=== PATIENT | female | born 1995 | race Caucasian/White ===

== ENCOUNTER 2023-04-23 08:29 | Emergency (ER) | payer MEDICARE, MEDICAID, SELFPAY ==
[2023-04-23 08:33] VITALS: BP 123/77; PULSE 75; RESP 18; TEMP 36.4; O2SAT 96; BMI 26.9
--- NOTE | 2023-04-23 09:10 | ED.VIS.GI ---
HPI HPI - GI History of Present Illness Chief Complaint: Nausea/Vomiting Informant: patient Abdominal Pain/Flank Pain Onset: Today Context: Sudden Onset Timing: Continuous Quality: Sharp Location: Epigastric Worsened by: - (Coughing) Relieved by: Nothing Nausea/Vomiting/Emesis GI Symptom: Positive for Nausea and Vomiting Quality: Positive for Nonbilious; Negative for Blood streaks, Coffee ground or Hematemesis Episodes: 6 Diarrhea/Melena/Hematochezia GI Symptom: Negative for Diarrhea, Melena or Hematochezia Associated Symptoms Associated Symptoms: Negative for Dysuria, Frequency or Hematuria Narrative Narrative: Patient presents with nausea and vomiting began today. Patient states it came on rather suddenly. Patient states she has had approximately 6 episodes of vomiting today. Patient denies any hematemesis or coffee-ground emesis. Patient states she is having some pain in her chest that radiates into her abdomen. Patient describes it as sharp. Patient states it is constant. Patient states it is worse with coughing and vomiting. Patient states nothing to help with the pain. Patient denies any fevers or chills. Patient denies any diarrhea, melena, or hematochezia. Patient denies any dysuria, frequency, or hematuria. Patient states she has been feeling dizzy and lightheaded but denies any syncopal episodes. Patient states she thinks she is having an attack of her gastroparesis. [facility] Medical History (Updated 04/23/23 @ 12:[address] Greg Philip, ) Anxiety Borderline personality disorder Depression Gastroparesis Marfan syndrome PTSD (post-traumatic stress disorder) Type 1 diabetes Home Medications promethazine 50 mg tablet 50 mg PO Q6H PRN nausea 04/23/23 [History Last Taken Unknown] sulfamethoxazole 800 mg-trimethoprim 160 mg tablet 1 tab PO BID #6 TABLETS 04/23/23 [Rx Last Taken Unknown] Allergy/AdvReac Type Severity Reaction Status Date / Time ondansetron AdvReac I BLACK Verified 04/23/23 08:31 OUT AND LOSE CONTROL OF MY BLADDER Surgical History (Updated 04/23/23 @ 09:[address] Greg Philip, DO) H/O aortic root repair History of loop recorder Hx of appendectomy Hx of eye surgery Social History (Updated 04/23/23 @ 09:[address] Greg Schwiger, DO) Smoking Status: Current every day smoker tobacco type: e-cigarettes substance use type: marijuana ROS ROS ED Constitutional Constitutional ED: Denies chills or fever(s) Eyes Eyes: Denies blurry vision or change in vision ENT ENT ED: Denies rhinorrhea or sore throat Cardiovascular Cardiovascular: Reports chest pain; Denies palpitations Respiratory/Chest Respiratory/Chest: Denies cough or dyspnea Gastrointestinal Gastrointestinal: Reports abdominal pain, nausea and vomiting Genitourinary Genitourinary ED: Denies dysuria or hematuria Musculoskeletal Musculoskeletal: Denies back pain or neck pain Integumentary Denies abscess or rash Neurologic Neurologic: Denies headache(s) or weakness Allergic/Immunologic Allergic/Immunologic ED: Denies mouth swelling or urticaria EXAM Physical Exam Const Vital Signs: 04/23/23 08:33 04/23/23 11:40 Temperature 97.6 F L Temperature Source Temporal Pulse Rate 75 52 L Respiratory Rate 18 Blood Pressure 123/77 H Blood Pressure Mean 92 Pulse Ox 96 Oxygen Delivery Method Room Air Positive well nourished and well developed General Appearance ED: well developed HEENT Reports moist mucous membranes Neck supple and no JVD Resp normal respiratory effort and clear to auscultation bilaterally Cardio regular rate and regular rhythm GI normal to inspection, nondistended, normoactive bowel sounds Palpation: soft and tender epigastric, LUQ and RUQ; Negative for guarding or rebound tenderness present Extremity normal to inspection Extremity Narrative: Pedal pulses are equal bilaterally. General Extremety ED: Negative for edema or tenderness General Extremity: Negative for edema Neuro oriented x3, CN's II-XII intact bilaterally and no sensory deficits noted Sensorium / Orientation: alert Motor Exam: strength 5/5 throughout Psych mental status grossly normal Skin no rashes or lesions noted MDM MDM MDM Narrative Medical decision making narrative: Differential diagnosis includes gastroparesis, bowel obstruction, perforation, aortic dissection, diabetic ketoacidosis, pancreatitis, gastritis, gastroenteritis, peptic ulcer disease, duodenal ulcer, urinary tract infection, , ureteral calculus, and viral illness. CTA of the chest, abdomen, and pelvis will be obtained to assess for aortic dissection and pulmonary embolism. CBC will be obtained to assess for leukocytosis and anemia. Comprehensive metabolic profile will be obtained to assess for hepatic function, renal function, and electrolyte abnormality. Lipase will be obtained to assess for pancreatitis. Urinalysis will be obtained to assess for urinary tract infection and hematuria. EKG will be obtained to assess for cardiac dysrhythmia and cardiac ischemia. High-sensitivity troponin will be obtained to assess for cardiac ischemia. PT with INR and PTT will be obtained to assess for coagulopathy. Serum acetone will be obtained to assess for ketoacidosis. Lab Data Attestation: I reviewed the patient's lab results. Lab results narrative: CBC was reviewed. There is a mild leukocytosis of 13.4. Platelets were slightly low at 149. The remainder is within normal limits. PT with INR and PTT were reviewed and were within normal limits. Comprehensive metabolic profile was reviewed. Potassium was slightly low at 3.3. Glucose was slightly low at 60. The remainder was within normal limits. High-sensitivity troponin was reviewed and was normal at 6. Lipase was reviewed and was normal at 19. Serum hCG was reviewed and was negative. Serum acetone was reviewed and was negative. Urinalysis was reviewed. Leukocyte esterase was 500 with 5-10 white blood cells and 1+ bacteria. Labs: Laboratory Results - last 24 hr 04/23/23 04/23/23 04/23/23 09:57 10:50 11:06 WBC 13.4 H RBC 4.34 Hgb 13.0 Hct 39.8 MCV 91.7 MCH 30.0 MCHC 32.7 RDW Std Deviation 47.8 H RDW Coeff of Joyce 14.1 Plt Count 149 L MPV 12.7 H Immature Gran % (Auto) 0.700 Neut % (Auto) 77.2 H Lymph % (Auto) 14.[address] [place] % (Auto) 6.7 Eos % (Auto) 0.6 Baso % (Auto) 0.3 Absolute Neuts (auto) 10.3 H Absolute Lymphs (auto) 1.93 Nucleated RBC % 0 PT 14.4 INR 1.1 APTT Cancelled 34.5 Sodium 143 Potassium 3.3 L Chloride 114 H Carbon Dioxide 25.0 Anion Gap 4 L BUN 13 Creatinine 0.56 Estim Creat Clear Calc 156.31 Est GFR (MDRD) Af Amer 164 Est GFR (MDRD) Non-Af 135 BUN/Creatinine Ratio 23.1 H Glucose 60 L Calcium 8.6 Total Bilirubin 0.30 AST 13 L ALT 31 Alkaline Phosphatase 66 Troponin I High Sens 6 Total Protein 6.3 L Albumin 3.4 Globulin 2.9 Albumin/Globulin Ratio 1.2 Lipase 19 Serum , Qual NEGATIVE Urine Color Urine Clarity Urine pH Ur Specific [place] Urine Protein Urine Glucose (UA) Urine Ketones Urine Occult Blood Urine Nitrite Urine Bilirubin Urine Urobilinogen Ur Leukocyte Esterase Urine RBC Urine WBC Ur Squamous Epith Cells Urine Bacteria Urine Mucus Acetone Level NEGATIVE POC Glucose 108 H 04/23/23 11:36 WBC RBC Hgb Hct MCV MCH MCHC RDW Std Deviation RDW Coeff of Joyce Plt Count MPV Immature Gran % (Auto) Neut % (Auto) Lymph % (Auto) [place] % (Auto) Eos % (Auto) Baso % (Auto) Absolute Neuts (auto) Absolute Lymphs (auto) Nucleated RBC % PT INR APTT Sodium Potassium Chloride Carbon Dioxide Anion Gap BUN Creatinine Estim Creat Clear Calc Est GFR (MDRD) Af Amer Est GFR (MDRD) Non-Af BUN/Creatinine Ratio Glucose Calcium Total Bilirubin AST ALT Alkaline Phosphatase Troponin I High Sens Total Protein Albumin Globulin Albumin/Globulin Ratio Lipase Serum , Qual Urine Color Yellow Urine Clarity Clear Urine pH 8.0 Ur Specific [place] 1.015 Urine Protein Negative Urine Glucose (UA) 50 H Urine Ketones Negative Urine Occult Blood Negative Urine Nitrite Negative Urine Bilirubin Negative Urine Urobilinogen Normal Ur Leukocyte Esterase 500 H Urine RBC 0 SEEN Urine WBC 5-10 SEEN Ur Squamous Epith Cells 0 SEEN Urine Bacteria 1+ Urine Mucus 0 SEEN Acetone Level POC Glucose Radiography Diagnostic Testing: Clinical Impression(s) from Imaging Studies Chest/Abdomen/Pelvis CTA 04/23/23 09:19 IMPRESSION: No CTA evidence of thoracic or abdominal aortic aneurysm or dissection No acute pulmonary process No suspicious solid organ abnormality No free intraperitoneal fluid, air, or suspicious adenopathy Normal osseous structures Electronically Signed: Yosef Sims MD at 10:57 EDT Reading Location ID and State: [address] [place] [address] , Service support , CTA of the chest, abdomen, and pelvis was obtained. There is no evidence of aortic aneurysm or dissection. There is no acute pulmonary process noted. There is no free air or free fluid. There is no acute abnormality noted. This was interpreted by the radiologist and was also independently reviewed by myself. EKG Initial EKG: Attestation: I personally reviewed and interpreted this EKG as follows: Interpretation: Sinus Rhythm (63) and No Acute Injury Pattern Comments: EKG was obtained. On my independent interpretation, it showed a normal sinus rhythm with a rate of 63. MS interval, QRS interval, and QTc intervals were all normal. [place] was normal. There are no acute ST or T wave changes. Prior EKG tracings: not available for review Prior: No Prior Treatment and Re-Evaluation :: Patient was given IV fluids, Phenergan, and Bentyl. Because of the hypoglycemia, patient was given a half amp of D50. Repeat BG T was 108. Patient was given a dose of oral potassium here. Patient was feeling better on reevaluation. Patient was advised of her findings. Patient was instructed to continue her medications as previously prescribed. Patient was instructed to drink small amounts of fluids more frequently. Urine culture was ordered. Patient was given a prescription for Bactrim to take for urinary tract infection. Patient was instructed to follow-up with her primary care physician in 5 to 7 days. Patient was instructed return if worse in any way. Patient understood and was agreeable with the plan. All questions were answered. Discharge Plan Triage Chief Complaint: Nausea/Vomiting ED Provider: Greg Philip Dx/Rx/DC Orders Clinical Impression: Urinary tract infection, Diabetes, Nausea and vomiting Instructions: ED Cystitis Female Adult, ED Vomiting (Adult) Prescriptions: New sulfamethoxazole-trimethoprim [sulfamethoxazole-trimethoprim] 800-160 mg tablet 1 tab PO BID Qty: 6 0RF No Action promethazine 50 mg tablet 50 mg PO Q6H PRN (Reason: nausea) Primary Care Provider: Care Physician,No Primary Referrals: Care Physician,No Primary [Primary Care Provider] - Doctor,Your [Non-Staff] - 3-5 Days Disposition Disposition: Home, Self Care
--- NOTE | 2023-04-23 09:19 | CT_ITS ---
INDICATION: Chest and back pain, patient has Marfan''s EXAMINATION: CTA CHEST, ABDOMEN AND PELVIS WITH CONTRAST - TECHNIQUE: A CTA of the chest, abdomen, and pelvis is obtained with sagittal and coronal reconstructed MIP views. Three-dimensional surface rendered sequence of the thoracic and abdominal aorta was obtained. A radiation dose optimization technique was used for this scan. mL of Isovue-370. Oral contrast: None. COMPARISON: None. FINDINGS: CT CHEST: THORACIC AORTA: No atheromatous disease, no aneurysmal changes or dissection. ABDOMINAL AORTA: No aneurysm or dissection. No significant atheromatous disease. The iliac arteries are unremarkable. LUNGS: The lungs are well-expanded without acute or chronic changes. No effusions or pneumothorax. MEDIASTINUM: The thyroid gland is normal. No mediastinal or hilar adenopathy. HEART: There is been a previous sternotomy CT ABDOMEN AND PELVIS: LIVER: The liver enhances homogeneously. No masses identified. GALLBLADDER: The CBD is normal. Normal gallbladder. SPLEEN: Normal. PANCREAS: No masses or inflammation. ADRENAL GLANDS: Normal. KIDNEYS AND URETERS: The kidneys both enhance appropriately. There are normal size and shape. No hydronephrosis or nephrolithiasis. No renal masses or cysts. STOMACH: Normal. SMALL BOWEL: No abnormal distention of the small bowel. MESENTERY: No mesenteric inflammation. No ascites. COLON: No significant diverticulosis, masses or inflammation. The colon otherwise is normal. There is a large fatty ileocecal valve. APPENDIX: Evidence of previous appendectomy IVC: Normal. RETROPERITONEUM: No retroperitoneal lymphadenopathy. PELVIC STRUCTURES: Normal bladder. Normal-appearing uterus with physiologic ovarian cysts, no suspicious cystic mass or free fluid in the pelvis. SOFT TISSUES ABDOMEN: The anterior abdominal wall is normal. SOFT TISSUE CHEST: The extrathoracic soft tissues are normal. BONES: No fractures or significant degenerative disease. CT/CTA Chst, Abd, Pel W and/or WO IMPRESSION: No CTA evidence of thoracic or abdominal aortic aneurysm or dissection No acute pulmonary process No suspicious solid organ abnormality No free intraperitoneal fluid, air, or suspicious adenopathy Normal osseous structures Electronically Signed: Yosef Sims MD at 10:57 EDT ,
[2023-04-23] MEDS: 0.9% Normal Saline 1,000 ML 1000 ML IV (09:51)
[2023-04-23] MEDS: Dicyclomine 20 MG/2 ML Vial IM (09:51)
[2023-04-23] MEDS: proMETHazine 25 MG/ML Syringe 6.25 MG IM (09:52)
[2023-04-23 10:09] LABS: Absolute Lymphocyte Count 1.93 X10^3/uL (0.83-4.51); Absolute Neutrophil Count 10.3 X10^3/uL (2.0-7.7); Basophil# 0.04 X10^3/uL; Basophil% 0.3 % (0-1); Eosinophil# 0.08 X10^3/uL; Eosinophils% 0.6 % (0-5); Hematocrit 39.8 % (37-47); Lymphocyte # 1.93 X10^3/ul (0.83-4.51); Lymphocyte % 14.5 % (19-41); Mean Corp Hgb Conc 32.7 g/dL (32-36); Mean Corpuscular Volume 91.7 fL (81-99); Mean Platelet Vol. 12.7 fl (6.2-12.0); Monocyte# 0.89 X10^3/uL; Monocyte% 6.7 % (0-10); NRBC Flagged by Analyzer 0 % (0-5); Neutrophil # 10.31 X10^3/uL (2.7-7.7); Neutrophil % 77.2 % (47-70); Platelet Count 149 K/mm3 (150-450); RBC Distribution Width CV 14.1 % (11.6-14.6); RBC Distribution Width SD 47.8 fl (35.1-43.9); Red Blood Count 4.34 M/mm3 (4.2-5.4); White Blood Count 13.4 K/mm3 (4.4-11.0)
[2023-04-23 10:19] LABS: Internal QC Validated? YES +Cl - CLEAR BKGD; Pregnancy, Serum, hCG Quali. NEGATIVE Negative
[2023-04-23 10:23] LABS: ALB/GLOB Ratio 1.2 RATIO (0.9-2.4); AST(SGOT) 13 U/L (15-37); Alanine Aminotransfer ALT/SGPT 31 U/L (13-56); Albumin, Serum 3.4 g/dL (3.2-5.0); Alkaline Phosphatase 66 U/L (45-117); Anion Gap 4 (5-15); BUN 13 mg/dL (7-18); BUN/Creat Ratio 23.1 RATIO (10-20); Calcium,Total 8.6 mg/dL (8.5-10.1); Chloride 114 mmol/L (98-107); Creatinine, Serum 0.56 mg/dL (0.55-1.02); EST Glomerular Filtration Rate 135 mL/min (>60); Est Glom Filt Rate - Afr Amer 164 mL/min (>60); Estimated Creatinine Clearance 156.31 ml/min; Globulin 2.9 g/dL (2.2-4.2); Glucose 60 mg/dL (74-106); Lipase 19 U/L (13-75); Potassium 3.3 mmol/L (3.5-5.1); Protein, Total 6.3 g/dL (6.4-8.2); Sodium Level 143 mmol/L (136-145); Troponin-I HS 6 pg/mL (3.0-54.0)
[2023-04-23 10:28] LABS: International Normalized Ratio 1.1; Prothrombin Time (Protime)PT. 14.4 SECONDS (11.7-14.9)
[2023-04-23] MEDS: Dextrose 50%-Water 25 GM/50 ML DISP.SYRIN IV (10:37)
[2023-04-23 11:06] LABS: Partial Thromboplast Time 34.5 Seconds (24.1-36.2)
[2023-04-23 11:23] LABS: Bedside Glucose 108 mg/dL (74-106)
[2023-04-23] MEDS: Potassium Chloride Oral Tablet 20 MEQ 40 MEQ PO (11:26)
[2023-04-23 11:40] VITALS: PULSE 52
[2023-04-23 11:41] LABS: Mucous, Urine 0 SEEN /hpf (<or=2+); Red Blood Cells-Urine 0 SEEN /hpf (0-5); Squamous Epithelial Cells - UA 0 SEEN /hpf (5-10)
[2023-04-23 11:43] LABS: Color, Urine Yellow (Yellow); Glucose, Dipstick 50 mg/dl (Normal); Ketone-Dipstick Negative (Negative); Leukocyte Esterase-Dipstick 500 /ul (Negative); Nitrite-Dipstick Negative (Negative); Occult Blood-Urine Negative /ul (Negative); Protein-Dipstick Negative (Negative); Specific Gravity, Urine 1.015 (1.002-1.030); Urine Bilirubin Dipstick Negative (Negative); Urine Clarity Clear (Clear); Urine Urobilinogen Normal (Normal)
[2023-04-23 11:55] LABS: Bacteria 1+ /hpf (None Seen); White Blood Cells 5-10 SEEN /hpf (0-5)
[2023-04-23 13:00] VITALS: RESP 16
== END 2023-04-23 13:09 | disposition home or self-care (01) ==
PROVIDERS: Emergency Provider Emergency Medicine; Visit Provider Emergency Medicine
DX: N39.0 Urinary tract infection, site not specified (principal); E10.9 Type 1 diabetes mellitus without complications; R11.2 Nausea with vomiting, unspecified; F17.290 Nicotine dependence, other tobacco product, uncomplicated; E16.2 Hypoglycemia, unspecified
CPT/HCPCS: 36591; 71275; 74174; 80053; 81001; 82009; 82962; 83690; 84484; 84703; 85025; 85610; 85730; 93005; 96361; 96372; 96374; 99285; J7030; Q9967; A4216

== ENCOUNTER 2023-04-26 20:24 | Emergency (ER) | payer MEDICARE, MEDICAID, SELFPAY ==
[2023-04-26 20:25] VITALS: BP 113/82; PULSE 116; RESP 18; TEMP 37; O2SAT 98; BMI 25.4
--- NOTE | 2023-04-26 20:50 | CT_ITS ---
STUDY: CTA CHEST REASON FOR EXAM: Female, 27 years old. chest pain RADIATION DOSAGE (If Supplied By Facility): CTDIvol = ( 16.05 ) mGy, DLP = ( 450.05 ) mGycm TECHNIQUE: The examination was performed with the intravenous administration of IV 100mL Isovue-370. Post-processing of the angiographic images was performed, with multiplanar reformation and 3D reconstruction. Individualized dose optimization techniques were used for this CT. COMPARISON: 04/23/2023. FINDINGS: Left-sided chest port in place. Normal enhancement of the main pulmonary artery and right and left pulmonary arteries. Normal enhancement of the bilateral peripheral pulmonary arteries. There is no demonstrated pulmonary embolism. Normal thoracic aorta and visualized great vessels. There is no demonstrated aortic dissection. Normal heart and pericardium. Normal mediastinum. Normal hilar regions. Normal visualized trachea and bronchi. The lungs are well expanded. Normal pulmonary parenchyma. Normal pleura. Midline sternotomy wires. Normal osseous structures. Normal visualized upper abdomen. CT/CTA Chest W/WO Contrast IMPRESSION: Normal CTA chest examination, without a demonstrated pulmonary embolism or arterial dissection. No acute cardiopulmonary disease. Electronically Signed: Ruby Trimble MD at 22:52 EDT ,
--- NOTE | 2023-04-26 20:51 | ED.VIS.CHEST ---
HPI History of Present Illness Chief Complaint: Palpitations Detail of Chief Complaint: Chest pain and tachycardia Informant: patient Narrative Narrative: Patient presents to the emergency Avenue complaint of tachycardia that started while in the shower. Patient states [facility]xim[facility] and her heart rate was in the 150s. She subsequently developed a sharp chest pain rating from the left chest towards the center of her chest. Pain is intermittent. Currently she rates her pain a 6 out of 10. She denies recent travel or surgery. Patient states that she has history of Marfan's and has had an aortic root repair in 2014. Patient does have episodes of tachycardia and tells me that every time they put her on medication to control that her blood pressure does not tolerate it and drops. PFSH PFSH Medical History (Updated 04/26/23 @ 23:[address] Loki Soria, ) Anxiety Borderline personality disorder Depression Gastroparesis Marfan syndrome PTSD (post-traumatic stress disorder) Type 1 diabetes Home Medications promethazine 50 mg tablet 50 mg PO Q6H PRN nausea 04/23/23 [History Last Taken Unknown] sulfamethoxazole 800 mg-trimethoprim 160 mg tablet 1 tab PO BID #6 TABLETS 04/23/23 [Rx Last Taken Unknown] Allergy/AdvReac Type Severity Reaction Status Date / Time ondansetron AdvReac I BLACK Verified 04/26/23 20:27 OUT AND LOSE CONTROL OF MY BLADDER Surgical History H/O aortic root repair History of loop recorder Hx of appendectomy Hx of eye surgery Social History (Updated 04/23/23 @ 09:[address] Greg Philip DO) Smoking Status: Current some day smoker tobacco type: e-cigarettes substance use type: marijuana ROS ROS ED Review of Systems ROS Unobtainable: other Constitutional Constitutional ED: Reports lethargy; Denies chills, fever(s), sweats or weight loss Eyes Eyes: Denies blurry vision, change in vision or diplopia ENT ENT ED: Denies rhinorrhea or sore throat Cardiovascular Cardiovascular: Reports chest pain, palpitations and racing heartbeat; Denies orthopnea Respiratory/Chest Respiratory/Chest: Denies cough, dyspnea, dyspnea on exertion, orthopnea or sputum Gastrointestinal Gastrointestinal: Denies abdominal pain, diarrhea, nausea or vomiting Genitourinary Genitourinary ED: Denies dysuria, hematuria or urinary frequency Musculoskeletal Musculoskeletal: Denies arthralgias, back pain, myalgias or neck pain Integumentary Denies abscess, Abrasions or rash Neurologic Neurologic: Denies headache(s) or weakness Psychiatric Psychiatric: Denies anxiety, depression or suicidal thoughts Endocrine Endocrinology: Denies polydipsia, polyphagia or polyuria Hematologic/Lymphatic Hematologic/Lymphatic: Denies easy bleeding, easy bruising or lymphadenopathy Allergic/Immunologic Allergic/Immunologic ED: Denies mouth swelling, tongue swelling or urticaria EXAM Physical Exam Const Vital Signs: 04/26/23 20:25 04/26/23 21:29 04/26/23 21:30 Temperature 98.6 F Temperature Source Temporal Pulse Rate 116 H 78 Respiratory Rate 18 21 H Respiratory Effort Non-Labored Blood Pressure 113/82 H 115/82 H Blood Pressure Mean 92 93 Pulse Ox 98 95 Oxygen Delivery Method Room Air Room Air 04/26/23 22:00 Temperature Temperature Source Pulse Rate 81 Respiratory Rate 22 H Respiratory Effort Blood Pressure Blood Pressure Mean Pulse Ox 97 Oxygen Delivery Method Room Air Positive well nourished and well developed General Appearance ED: well developed and NAD HEENT Reports TM's clear and moist mucous membranes normocephalic and atraumatic; Negative for trauma or tenderness Tympanic Membrane ED: Yes TM's clear Eyes PERRL and EOMs intact bilaterally General Eye ED: Negative for pale conjunctiva or scleral icterus Neck no lymphadenopathy, supple and no JVD General: Negative for tenderness Chest Wall inspection of chest normal and palpation of chest normal Chest: Negative for tenderness Resp normal respiratory effort and clear to auscultation bilaterally Effort and Inspection: Negative for respiratory distress or pain with movement Auscultation: Negative for rhonchi, wheezes or diminished lung sounds Cardio regular rate, regular rhythm, S1 normal heart sound, S2 normal heart sound and no murmurs Peripheral Pulses: pulses 2+ throughout GI normal to inspection, nondistended, normoactive bowel sounds, soft to palpation, non-tender, non-distended and no masses Back/Spine no CVA tenderness and no thoracic nor lumbar tenderness Extremity normal to inspection General Extremety ED: Negative for edema General Extremity: Negative for edema Neuro oriented x3, CN's II-XII intact bilaterally, no sensory deficits noted and gait normal Sensorium / Orientation: awake, alert, oriented to person, oriented to place and oriented to time Motor Exam: strength 5/5 throughout and strength abnormal Psych mental status grossly normal Skin no rashes or lesions noted and no wounds MDM MDM MDM Narrative Medical decision making narrative: Patient presented with tachycardia while in the shower today as well as development of chest pain. She has history of aortic root repair and history of Marfan's. IV line established on arrival. EKG obtained showed a sinus rhythm with a rate of 106 bpm with right atrial enlargement. CBC with differential showed a white count of 13.8 with hemoglobin of 14 and platelet count of 158. Chemistries unremarkable. Troponin was normal at 4. TSH was slightly elevated 3.85. CT of the chest was obtained to rule out dissection which was normal. In reviewing her chart afterwards it was noted that patient was recently in the emergency department with similar complaint and had CT scan of the chest abdomen and pelvis which was unremarkable. Patient continued to complain of nausea and was given Compazine 10 mg IV. I also ordered a milligram of Ativan. Patient has Phenergan at home for her nausea. I will discharge her to home and advised to follow-up with primary care physician within next 3 to 5 days. Also will refer to GI for follow-up. Lab Data Attestation: I reviewed the patient's lab results. Labs: Laboratory Results - last 24 hr 04/26/23 21:20 WBC 13.8 H RBC 4.80 Hgb 14.1 Hct 42.6 MCV 88.8 MCH 29.4 MCHC 33.1 RDW Std Deviation 45.3 H RDW Coeff of Joyce 13.9 Plt Count 158 MPV 11.5 Immature Gran % (Auto) 0.900 Neut % (Auto) 78.6 H Lymph % (Auto) 13.6 L [place] % (Auto) 6.2 Eos % (Auto) 0.4 Baso % (Auto) 0.3 Absolute Neuts (auto) 10.8 H Absolute Lymphs (auto) 1.87 Nucleated RBC % 0 Sodium 135 L Potassium 3.9 Chloride 106 Carbon Dioxide 20.0 L Anion Gap 9 BUN 10 Creatinine 0.96 Estim Creat Clear Calc 91.18 Est GFR (MDRD) Af Amer 89 Est GFR (MDRD) Non-Af 74 BUN/Creatinine Ratio 10.5 Glucose 108 H Calcium 9.2 Troponin I High Sens 4 TSH 3.85 H Radiography Diagnostic Testing: Clinical Impression(s) from Imaging Studies Chest CTA 04/26/23 20:50 IMPRESSION: Normal CTA chest examination, without a demonstrated pulmonary embolism or arterial dissection. No acute cardiopulmonary disease. Electronically Signed: Ruby Trimble MD at 22:52 EDT Reading Location ID and State: [facility] / [place] , Service support , EKG Initial EKG: Attestation: I personally reviewed and interpreted this EKG as follows: Comments: Sinus rhythm with a rate of 106 bpm with right atrial enlargement Discharge Plan Triage Chief Complaint: Palpitations ED Provider: Loki Soria Dx/Rx/DC Orders Clinical Impression: Tachycardia, Chest pain, Vomiting Instructions: ED Chest Pain, Uncertain Cause, ED Palpitations, ED Vomiting (Adult) Prescriptions: No Action promethazine 50 mg tablet 50 mg PO Q6H PRN (Reason: nausea) sulfamethoxazole-trimethoprim [sulfamethoxazole-trimethoprim] 800-160 mg tablet 1 tab PO BID Qty: 6 0RF Primary Care Provider: Care Physician,No Primary Referrals: Friend,Truman, DO [Med Staff - Active Staff] - 3-5 Days Care Physician,No Primary [Primary Care Provider] - Disposition Disposition: Home, Self Care
[2023-04-26] MEDS: 0.9% Normal Saline 1,000 ML 150 ML IV (21:26)
[2023-04-26 21:29] VITALS: BP 115/82; PULSE 78; RESP 21; O2SAT 95
[2023-04-26 21:40] LABS: Absolute Lymphocyte Count 1.87 X10^3/uL (0.83-4.51); Absolute Neutrophil Count 10.8 X10^3/uL (2.0-7.7); Basophil# 0.04 X10^3/uL; Basophil% 0.3 % (0-1); Eosinophil# 0.05 X10^3/uL; Eosinophils% 0.4 % (0-5); Hematocrit 42.6 % (37-47); Hemoglobin 14.1 g/dL (12.0-15.0); Lymphocyte # 1.87 X10^3/ul (0.83-4.51); Lymphocyte % 13.6 % (19-41); Mean Corp Hgb Conc 33.1 g/dL (32-36); Mean Corpuscular Hgb 29.4 pg (27.0-32.0); Mean Corpuscular Volume 88.8 fL (81-99); Mean Platelet Vol. 11.5 fl (6.2-12.0); Monocyte# 0.86 X10^3/uL; Monocyte% 6.2 % (0-10); NRBC Flagged by Analyzer 0 % (0-5); Neutrophil # 10.84 X10^3/uL (2.7-7.7); Neutrophil % 78.6 % (47-70); Platelet Count 158 K/mm3 (150-450); RBC Distribution Width CV 13.9 % (11.6-14.6); RBC Distribution Width SD 45.3 fl (35.1-43.9); White Blood Count 13.8 K/mm3 (4.4-11.0)
[2023-04-26 22:00] VITALS: PULSE 81; RESP 22; O2SAT 97
--- NOTE | 2023-04-26 22:05 | EKG12_ITS ---
Test Reason : Blood Pressure : / mmHG Vent. Rate : 106 BPM Atrial Rate : 106 BPM P-R Int : 122 ms QRS Dur : 078 ms QT Int : 334 ms P-R-T Axes : 064 080 053 degrees QTc Int : 443 ms Sinus tachycardia Right atrial enlargement Borderline ECG Confirmed by KIRILL LOCKE, MARIA ESTHER ([id number]), nut grinder QUENTIN ESPAÑA ([id number]) on 05/15/2023 2:07:14 PM Referred By: Confirmed By:SHAZIA ROY MD
[2023-04-26 22:20] LABS: Anion Gap 9 (5-15); BUN 10 mg/dL (7-18); BUN/Creat Ratio 10.5 RATIO (10-20); Calcium,Total 9.2 mg/dL (8.5-10.1); Chloride 106 mmol/L (98-107); Creatinine, Serum 0.96 mg/dL (0.55-1.02); EST Glomerular Filtration Rate 74 mL/min (>60); Est Glom Filt Rate - Afr Amer 89 mL/min (>60); Estimated Creatinine Clearance 91.18 ml/min; Glucose 108 mg/dL (74-106); Potassium 3.9 mmol/L (3.5-5.1); Sodium Level 135 mmol/L (136-145); Thyroid Stim Hormone (TSH) 3.85 uIU/mL (0.358-3.74); Troponin-I HS 4 pg/mL (3.0-54.0)
[2023-04-26] MEDS: proCHLORPERazine 10 MG/2 ML Vial IV (23:10)
[2023-04-26] MEDS: LORazepam 2 MG/ML Syringe 1 MG IV (23:15)
[2023-04-26 23:47] VITALS: RESP 22
== END 2023-04-26 23:48 | disposition home or self-care (01) ==
PROVIDERS: Emergency Provider Emergency Medicine; Visit Provider Emergency Medicine
DX: R07.9 Chest pain, unspecified (principal); E10.43 Type 1 diabetes mellitus with diabetic autonomic (poly)neuropathy; R11.0 Nausea; F17.290 Nicotine dependence, other tobacco product, uncomplicated; R00.0 Tachycardia, unspecified; Q87.40 Marfan syndrome, unspecified; Z79.899 Other long term (current) drug therapy
CPT/HCPCS: 36591; 71275; 80048; 84443; 84484; 85025; 93005; 96361; 96374; 96375; 99285; J7030; Q9967; A4216

== ENCOUNTER 2023-04-27 09:25 | Observation (INO) | payer MEDICARE, MEDICAID, SELFPAY ==
[2023-04-27] VITALS (8 sets, daily range): BP systolic 93–132; BP diastolic 51–86; PULSE 75–123; RESP 12–30; TEMP 36–37.1; O2SAT 96–100; BMI 28.1; BMI 25.6
[2023-04-27 10:28] LABS: Absolute Lymphocyte Count 0.67 X10^3/uL (0.83-4.51); Absolute Neutrophil Count 19.6 X10^3/uL (2.0-7.7); Basophil# 0.04 X10^3/uL; Basophil% 0.2 % (0-1); Hemoglobin 13.5 g/dL (12.0-15.0); Lymphocyte # 0.67 X10^3/ul (0.83-4.51); Lymphocyte % 3.2 % (19-41); Mean Corp Hgb Conc 32.1 g/dL (32-36); Mean Corpuscular Volume 90.3 fL (81-99); Mean Platelet Vol. 12.5 fl (6.2-12.0); Monocyte# 0.19 X10^3/uL; Monocyte% 0.9 % (0-10); NRBC Flagged by Analyzer 0 % (0-5); Neutrophil # 19.63 X10^3/uL (2.7-7.7); Neutrophil % 93.9 % (47-70); Platelet Count 158 K/mm3 (150-450); RBC Distribution Width CV 14.2 % (11.6-14.6); RBC Distribution Width SD 46.5 fl (35.1-43.9); Red Blood Count 4.65 M/mm3 (4.2-5.4); White Blood Count 20.9 K/mm3 (4.4-11.0)
[2023-04-27] MEDS: proMETHazine 25 MG/ML Syringe 12.5 MG IM (10:28)
[2023-04-27] MEDS: Dicyclomine 20 MG/2 ML Vial IM (10:28)
[2023-04-27] MEDS: 0.9% Normal Saline 1,000 ML 1000 ML IV (10:29)
[2023-04-27] MEDS: 0.9% Normal Saline 1,000 ML 150 ML IV ×2 (10:29→18:21)
[2023-04-27 10:46] LABS: AST(SGOT) 10 U/L (15-37); Alanine Aminotransfer ALT/SGPT 22 U/L (13-56); Alkaline Phosphatase 85 U/L (45-117); Anion Gap 15 (5-15); BUN 15 mg/dL (7-18); BUN/Creat Ratio 13.9 RATIO (10-20); Calcium,Total 9.4 mg/dL (8.5-10.1); Chloride 102 mmol/L (98-107); Creatinine, Serum 1.08 mg/dL (0.55-1.02); EST Glomerular Filtration Rate 64 mL/min (>60); Est Glom Filt Rate - Afr Amer 77 mL/min (>60); Estimated Creatinine Clearance 78.23 ml/min; Globulin 3.5 g/dL (2.2-4.2); Glucose 313 mg/dL (74-106); Lipase 10 U/L (13-75); Potassium 5.1 mmol/L (3.5-5.1); Protein, Total 7.5 g/dL (6.4-8.2); Sodium Level 130 mmol/L (136-145)
--- NOTE | 2023-04-27 11:45 | EX.ED.DYSGE1 ---
HPI History of Present Illness Chief Complaint: Nausea/Vomiting Informant: patient Onset/Context/Timing Onset: Yesterday Narrative Narrative: Patient presents secondary to nausea and vomiting. She is a history of gastroparesis with similar symptoms. Patient was seen in the ER yesterday with elevated heart rate. Work-up was rather unremarkable. She states she was getting nauseated prior to discharge and was given a dose of antiemetics. Patient states in spite of this she continued to have progressive nausea overnight and vomited several times. PFSH PFS Medical History Anxiety Borderline personality disorder Depression Gastroparesis Marfan syndrome PTSD (post-traumatic stress disorder) Type 1 diabetes Home Medications promethazine 50 mg tablet 50 mg PO Q6H PRN nausea 04/23/23 [History Last Taken Unknown] sulfamethoxazole 800 mg-trimethoprim 160 mg tablet 1 tab PO BID #6 TABLETS 04/23/23 [Rx Last Taken Unknown] Allergy/AdvReac Type Severity Reaction Status Date / Time acetaminophen [From Percocet] Allergy Intermediate Rash Verified 04/27/23 12:30 adhesive tape Allergy Intermediate Rash Verified 04/27/23 12:30 cephalexin [From Keflex] Allergy Intermediate Other Verified 04/27/23 12:31 morphine Allergy Intermediate Rash Verified 04/27/23 12:30 oxycodone [From Percocet] Allergy Intermediate Rash Verified 04/27/23 12:30 ondansetron AdvReac I BLACK Verified 04/27/23 09:26 OUT AND LOSE CONTROL OF MY BLADDER Surgical History H/O aortic root repair History of loop recorder Hx of appendectomy Hx of eye surgery Social History Smoking Status: Current some day smoker tobacco type: e-cigarettes substance use type: marijuana ROS ROS ED Constitutional Constitutional ED: Denies chills or fever(s) Eyes Eyes: Denies discharge from eye(s) ENT ENT ED: Denies discharge from eye(s), rhinorrhea or sore throat Cardiovascular Cardiovascular: Denies chest pain Respiratory/Chest Respiratory/Chest: Denies cough or dyspnea Gastrointestinal Gastrointestinal: Reports abdominal pain, nausea and vomiting; Denies diarrhea Genitourinary Genitourinary ED: Denies dysuria Musculoskeletal Musculoskeletal: Denies back pain or extremity pain Integumentary Denies Abrasions or rash Neurologic Neurologic: Denies headache(s) or weakness Psychiatric Psychiatric: Denies anxiety or depression Allergic/Immunologic Allergic/Immunologic ED: Denies lip swelling or urticaria EXAM Physical Exam Const Vital Signs: 04/27/23 09:26 04/27/23 11:22 04/27/23 12:39 Temperature 96.8 F L Temperature Source Temporal Pulse Rate 123 H 84 93 Respiratory Rate 21 H 27 H 18 Blood Pressure 115/86 H 116/61 120/51 L Blood Pressure Mean 95 79 74 Pulse Ox 100 96 Oxygen Delivery Method Room Air Room Air Room Air 04/27/23 13:23 Temperature Temperature Source Pulse Rate 100 Respiratory Rate 30 H Blood Pressure 119/58 L Blood Pressure Mean 78 Pulse Ox 96 Oxygen Delivery Method Room Air Positive well nourished and well developed General Appearance ED: well developed HEENT Reports moist mucous membranes Eyes EOMs intact bilaterally Chest Wall inspection of chest normal and palpation of chest normal Resp normal respiratory effort and clear to auscultation bilaterally Cardio regular rate and regular rhythm GI GI Narrative: Abdomen soft with mild diffuse tenderness palpation. No guarding or rebound. Extremity normal to inspection Neuro oriented x3 and no sensory deficits noted Motor Exam: strength 5/5 throughout Skin no rashes or lesions noted MDM MDM MDM Narrative Medical decision making narrative: Patient has been seen twice in the ER recently. Did review those notes. Patient had CT imaging of her chest, abdomen, and pelvis at these visits. Labwork obtained to evaluate for leukocytosis, anemia, and electrolyte derangement. Patient given IV fluids along with Bentyl and Phenergan which seemed to help control her symptoms previously. History & Record Review Discussion w/independent historian: Patient Additional record(s) reviewed:: Prior ED visit and Prior labs Lab Data Attestation: I reviewed the patient's lab results. Labs: Laboratory Results - last 24 hr 04/27/23 04/27/23 10:20 15:11 WBC 20.9 H RBC 4.65 Hgb 13.5 Hct 42.0 MCV 90.3 MCH 29.0 MCHC 32.1 RDW Std Deviation 46.5 H RDW Coeff of Joyce 14.2 Plt Count 158 MPV 12.5 H Immature Gran % (Auto) 1.800 H Neut % (Auto) 93.9 H Lymph % (Auto) 3.2 L [place] % (Auto) 0.9 Eos % (Auto) 0.0 Baso % (Auto) 0.2 Absolute Neuts (auto) 19.6 H Absolute Lymphs (auto) 0.67 L Nucleated RBC % 0 Sodium 130 L Potassium 5.1 Chloride 102 Carbon Dioxide 13.0 L Anion Gap 15 BUN 15 Creatinine 1.08 H Estim Creat Clear Calc 78.23 Est GFR (MDRD) Af Amer 77 Est GFR (MDRD) Non-Af 64 BUN/Creatinine Ratio 13.9 Glucose 313 H Calcium 9.4 Total Bilirubin 1.00 Direct Bilirubin 0.30 AST 10 L ALT 22 Alkaline Phosphatase 85 Total Protein 7.5 Albumin 4.0 Globulin 3.5 Lipase 10 L POC Glucose 206 H Treatment and Re-Evaluation :: CBC reveals an elevated white count at 20.9. White count was elevated in the 13-14 range on previous visits. She does have 94% neutrophils. Chemistry studies reveal a sodium of 130 with a potassium of 5.1. Bicarb is slightly low at 13. Anion gap is normal at 15. Glucose is 313 and patient is a known diabetic. LFTs are unremarkable and lipase is normal. On repeat evaluation patient states she just had further vomiting. I will give her a dose of Reglan and Benadryl at this time. She continues to complain of only mild diffuse abdominal cramping. Given that she has had recent imaging I do not feel repeat CT is needed at this time. My suspicion is that her her vomiting has contributed to her leukocytosis. After the patient had received Reglan and Benadryl she continued to have significant nausea with vomiting. She requested something to help with acid reflux and was given Protonix. I attempted to give her a GI cocktail but because of vomiting she was unable to tolerate this. She was given an additional dose of Phenergan. At this time patient continues to be quite nauseated and cannot tolerate p.o. This is the patient's third visit to the ER this week. With 3 rounds of antiemetics at this time and her nausea still not well controlled I do feel she will require hospitalization. I will speak with the hospitalist. Discharge Plan Triage Chief Complaint: Nausea/Vomiting ED Provider: Lin Johansen Dx/Rx/DC Orders Clinical Impression: Intractable vomiting Prescriptions: No Action promethazine 50 mg tablet 50 mg PO Q6H PRN (Reason: nausea) sulfamethoxazole-trimethoprim [sulfamethoxazole-trimethoprim] 800-160 mg tablet 1 tab PO BID Qty: 6 0RF Primary Care Provider: Care Physician,No Primary Referrals: Care Physician,No Primary [Primary Care Provider] - Disposition Disposition: Acute Care Hospital [facility]
[2023-04-27] MEDS: DiphenhydrAMINE 50 MG/ML Syringe 25 MG IV (12:27)
[2023-04-27] MEDS: 0.9% Normal Saline 1,000 ML 999 ML IV (12:27)
[2023-04-27] MEDS: Metoclopramide 10 MG/2 ML Vial IV (12:27)
[2023-04-27 15:29] LABS: Bedside Glucose 206 mg/dL (74-106)
[2023-04-27] MEDS: proMETHazine 25 MG/ML Syringe IM (15:33)
--- NOTE | 2023-04-27 15:59 | NURSING ---
MED SURG OBS KOVIKRAMS INTRACTABLE VOMITING
--- NOTE | 2023-04-27 17:12 | PCM.HP.STD ---
HPI - General General Date of Admission: 04/27/23 HPI Narrative THEODORE VILLA, is a 27 F who presents to the hospital with intractable nausea and vomiting. She denies any recent illnesses, no fevers or chills but has had significant issues and feels like this is her gastroparesis. She is a type I diabetic on an insulin pump and states that normally when she is doing well her blood sugar is maximum 180, today 313 she does have a leukocytosis of unknown etiology no urine or chest x-ray was obtained. She denies any shortness of breath or cough however will need to obtain a urine. She has received IV fluids and her creatinine is slightly elevated though not consistent with an YANDY. [facility] Medical History (Updated 04/27/23 @ 17:16 by Estelita Vargas) Anxiety Borderline personality disorder Depression Gastroparesis History of tachycardia Kidney disease Kidney stones Marfan syndrome PTSD (post-traumatic stress disorder) Smoker Substance abuse Type 1 diabetes Home Medications sulfamethoxazole 800 mg-trimethoprim 160 mg tablet 1 tab PO BID #6 TABLETS 04/23/23 [Rx Last Taken 04/26/23] insulin lispro 100 unit/mL subcutaneous solution (Humalog U-100 Insulin) See Rx Instructions .Route .COMPLEX 04/27/23 [History Last Taken 04/27/23] risankizumab-rzaa 150 mg/mL subcutaneous syringe (Skyrizi) 150 mg subcut Q84D 04/27/23 [History Last Taken Unknown] sucralfate 1 gram tablet 1 g PO ACHS PRN STOMACH 04/27/23 [History Last Taken Unknown] Allergy/AdvReac Type Severity Reaction Status Date / Time acetaminophen [From Percocet] Allergy Intermediate Rash Verified 04/27/23 12:30 adhesive tape Allergy Intermediate Rash Verified 04/27/23 12:30 cephalexin [From Keflex] Allergy Intermediate Other Verified 04/27/23 12:31 morphine Allergy Intermediate Rash Verified 04/27/23 12:30 oxycodone [From Percocet] Allergy Intermediate Rash Verified 04/27/23 12:30 ondansetron AdvReac I BLACK Verified 04/27/23 09:26 OUT AND LOSE CONTROL OF MY BLADDER no significant family history Surgical History H/O aortic root repair History of loop recorder Hx of appendectomy Hx of eye surgery Social History Smoking Status: Current some day smoker tobacco type: e-cigarettes substance use type: marijuana ROS Constitutional Constitutional: Denies chills, fatigue, fever(s) or malaise Eyes Eyes: Denies blurry vision ENT HEENT: Denies headache(s) or nasal discharge Cardiovascular Cardiovascular: Denies chest pain, dyspnea on exertion or syncope Respiratory/Chest Respiratory/Chest: Denies cough, shortness of breath at rest or shortness of breath with exertion Gastrointestinal Gastrointestinal: Reports abdominal pain, nausea and vomiting; Denies constipation or diarrhea Genitourinary Genitourinary: Denies dysuria Neurologic Neurologic: Denies focal weakness, numbness or tremor(s) Psychiatric Psychiatric: Denies anxiety or depression Vital Signs Vital Signs Vital Signs: 04/27/23 09:26 04/27/23 11:22 04/27/23 12:39 Temperature 96.8 F L Temperature Source Temporal Pulse Rate 123 H 84 93 Respiratory Rate 21 H 27 H 18 Blood Pressure 115/86 H 116/61 120/51 L Blood Pressure Mean 95 79 74 Pulse Ox 100 96 Oxygen Delivery Method Room Air Room Air Room Air 04/27/23 13:23 04/27/23 16:13 04/27/23 16:45 Temperature 97.8 F Temperature Source Oral Pulse Rate 100 90 Respiratory Rate 30 H 21 H 18 Blood Pressure 119/58 L 128/81 H 118/61 Blood Pressure Mean 78 96 80 Pulse Ox 96 Oxygen Delivery Method Room Air Room Air Room Air Weight Weight: 173 lb 8 oz Body Mass Index (BMI) 25.6 Physical Exam Narrative General: Alert, Oriented x3, Cooperative, No apparent distress HEENT: Atraumatic, PERRLA, EOMI, Normocephalic Oral: Dry mucosa Neck: Supple, No JVD Lungs: Clear to auscultation, Normal air movement, No rhonchi, No wheeze, No rales Cardiovascular: Tachycardic, Regular Rhythm, Normal S1, Normal S2, No murmurs Abdomen: Soft, Non Tender, Non-Distended, No Hepato-splenomegaly Extremities: No edema, Capillary Refill Less than 3 Seconds Skin: No rashes, No breakdown Musculoskeletal: No Tenderness to Palpation of Joints or Extremities Neurological: Cranial nerves II-XII grossly intact, Motor Exam 5/5 strength throughout, Sensory exam intact to light touch and pain Psych/Mental Status: Flat Results Lab / Micro Data 04/27/23 10:20 04/27/23 10:20 Labs: Laboratory Results - last 24 hr 04/27/23 10:20: WBC 20.9 H, RBC 4.65, Hgb 13.5, Hct 42.0, MCV 90.3, MCH 29.0, MCHC 32.1, RDW Std Deviation 46.5 H, RDW Coeff of Joyce 14.2, Plt Count 158, MPV 12.5 H, Immature Gran % (Auto) 1.800 H, Neut % (Auto) 93.9 H, Lymph % (Auto) 3.2 L, [place] % (Auto) 0.9, Eos % (Auto) 0.0, Baso % (Auto) 0.2, Absolute Neuts (auto) 19.6 H, Absolute Lymphs (auto) 0.67 L, Nucleated RBC % 0, Sodium 130 L, Potassium 5.1, Chloride 102, Carbon Dioxide 13.0 L, Anion Gap 15, BUN 15, Creatinine 1.08 H, Estim Creat Clear Calc 78.23, Est GFR (MDRD) Af Amer 77, Est GFR (MDRD) Non-Af 64, BUN/Creatinine Ratio 13.9, Glucose 313 H, Calcium 9.4, Total Bilirubin 1.00, Direct Bilirubin 0.30, AST 10 L, ALT 22, Alkaline Phosphatase 85, Total Protein 7.5, Albumin 4.0, Globulin 3.5, Lipase 10 L 04/27/23 15:11: POC Glucose 206 H Assessment & Plan Assessment/Plan (1) Intractable vomiting: PLAN: Plan 1. Intractable nausea and vomiting in the setting of type 1 diabetes with a history of gastroparesis ? Blood sugars elevated this could be an early DKA therefore we will give a significant amount of fluids as well as aggressively control her blood sugar ? We will add a carb controlled diet ? We will continue with Reglan ? She did have leukocytosis this could be reactive however we will check a UA as she is on Bactrim for possible UTI though we have no records of it in our system ?Of note she has had a decreasing bicarb on lab work from 25 down to 13 she has had a worsening pseudohyponatremia all of which could also be pointing to an early DKA, will monitor closely and adjust as necessary 2. History of Marfan's syndrome has had an aortic root repair DVT: Ambulation 75 minutes was spent on direct patient care, including documentation as well as chart review and collaboration with colleagues Charges/Coding Visit Charges Inpatient E&M: 19334 Init Hosp L3
[2023-04-27 18:45] LABS: Bedside Glucose 178 mg/dL (74-106)
[2023-04-27] MEDS: Insulin Lispro 100 UNIT/ML INSULN.PEN SC (21:44)
[2023-04-27] MEDS: Metoclopramide 10 MG/2 ML Vial 5 MG IV (21:45)
[2023-04-28] MEDS: proCHLORPERazine 10 MG/2 ML Vial 5 MG IV ×5 (00:17→20:15)
[2023-04-28] MEDS: 0.9% Normal Saline 1,000 ML 150 ML IV ×2 (00:25→06:50)
--- NOTE | 2023-04-28 01:58 | PCM.PN.BLA ---
Progress Note With possible gastroparesis and nausea and vomiting persisting with reglan and compazine; and allergic to statin start erthyromycin base.
[2023-04-28 02:27] VITALS: BP 95/55; PULSE 90; RESP 16; TEMP 37.6; O2SAT 97
[2023-04-28 02:34] LABS: Bedside Glucose 166 mg/dL (74-106)
[2023-04-28 02:39] LABS: Anion Gap 11 (5-15); BUN 9 mg/dL (7-18); BUN/Creat Ratio 11.7 RATIO (10-20); Calcium,Total 8.3 mg/dL (8.5-10.1); Chloride 112 mmol/L (98-107); Creatinine, Serum 0.77 mg/dL (0.55-1.02); EST Glomerular Filtration Rate 95 mL/min (>60); Est Glom Filt Rate - Afr Amer 115 mL/min (>60); Estimated Creatinine Clearance 113.68 ml/min; Glucose 128 mg/dL (74-106); Potassium 3.8 mmol/L (3.5-5.1); Sodium Level 140 mmol/L (136-145)
[2023-04-28 03:22] LABS: Mucous, Urine 0 SEEN /hpf (<or=2+); Red Blood Cells-Urine 0 SEEN /hpf (0-5); Squamous Epithelial Cells - UA 0 SEEN /hpf (5-10); White Blood Cells 0 SEEN /hpf (0-5)
[2023-04-28 03:23] LABS: Color, Urine Yellow (Yellow); Glucose, Dipstick 100 mg/dl (Normal); Ketone-Dipstick 150 mg/dl (Negative); Leukocyte Esterase-Dipstick Negative /ul (Negative); Nitrite-Dipstick Negative (Negative); Occult Blood-Urine Negative /ul (Negative); Protein-Dipstick 15 mg/dl (Negative); Urine Bilirubin Dipstick Negative (Negative); Urine Clarity Clear (Clear); Urine Urobilinogen Normal (Normal)
[2023-04-28 03:28] LABS: Bacteria RARE /hpf (None Seen)
[2023-04-28 04:35] LABS: Allen Test Positive; Base Excess -6 mmol/L (-2 to +2); Bicarbonate 18.2 mmol/L (22-26); Blood Gas Specimen Type ART; PO2 107 mmHG (75-100); SITE R Radial; SO2 99 % (95-99); Total Carbon Dioxide 19 mmol/L; pCO2 26.7 mmHg (35-45); pH 7.44 (7.35-7.45)
[2023-04-28 04:42] VITALS: BP 140/73; PULSE 79; RESP 16; TEMP 37.2; O2SAT 99
[2023-04-28 04:54] LABS: Bedside Glucose 114 mg/dL (74-106)
[2023-04-28 07:08] LABS: Absolute Neutrophil Count 20.4 X10^3/uL (2.0-7.7); Basophil# 0.03 X10^3/uL; Basophil% 0.1 % (0-1); Hematocrit 37.3 % (37-47); Hemoglobin 12.5 g/dL (12.0-15.0); Lymphocyte % 6.4 % (19-41); Mean Corp Hgb Conc 33.5 g/dL (32-36); Mean Corpuscular Hgb 29.6 pg (27.0-32.0); Mean Corpuscular Volume 88.4 fL (81-99); Mean Platelet Vol. 11.9 fl (6.2-12.0); Monocyte# 1.11 X10^3/uL; Monocyte% 4.8 % (0-10); NRBC Flagged by Analyzer 0 % (0-5); Neutrophil # 20.43 X10^3/uL (2.7-7.7); Neutrophil % 87.7 % (47-70); POSITIVE DIFFERENTIAL YES; Platelet Count 155 K/mm3 (150-450); RBC Distribution Width CV 14.4 % (11.6-14.6); RBC Distribution Width SD 46.4 fl (35.1-43.9); Red Blood Count 4.22 M/mm3 (4.2-5.4); White Blood Count 23.3 K/mm3 (4.4-11.0)
[2023-04-28 08:16] LABS: Anion Gap 9 (5-15); BUN 7 mg/dL (7-18); BUN/Creat Ratio 9.9 RATIO (10-20); Calcium,Total 8.5 mg/dL (8.5-10.1); Chloride 114 mmol/L (98-107); Creatinine, Serum 0.71 mg/dL (0.55-1.02); EST Glomerular Filtration Rate 104 mL/min (>60); Est Glom Filt Rate - Afr Amer 126 mL/min (>60); Estimated Creatinine Clearance 123.28 ml/min; Glucose 104 mg/dL (74-106); Potassium 3.9 mmol/L (3.5-5.1); Sodium Level 137 mmol/L (136-145)
[2023-04-28 08:32] VITALS: BP 95/52; PULSE 68; RESP 16; TEMP 37.6; O2SAT 96
--- NOTE | 2023-04-28 08:46 | PCM.PN.HOSP ---
Reason for Visit Reason for Visit: Diagnoses Vomiting, unspecified (04/27/23) Subjective Subjective Reports some epigastric burning from her vomiting, has some lower abdominal pain that she reports often goes along with this, trying to slowly advance her diet Objective Data Objective Data Vital Signs: Vital Signs Temp Pulse Resp BP Pulse Ox O2 Del Method 99.7 F H 68 16 95/52 L 96 Room Air 04/28/23 08:32 04/28/23 08:32 04/28/23 08:32 04/28/23 08:32 04/28/23 08:32 04/28/23 08:32 Oxygen Delivery Method Room Air Weight: 78.698 kg Body Mass Index (BMI) 25.6 Intake & Output: Intake and Output for Last 24 Hours 04/26/23 04/27/23 04/28/23 23:59 23:59 23:59 Intake Total 3110 / 3110 1872.5 / 1872.5 Balance 3110 / 3110 1872.5 / 1872.5 Lab / Micro Data 04/28/23 06:53 04/28/23 06:53 Labs: Laboratory Results - last 24 hr 04/27/23 10:20: WBC 20.9 H, RBC 4.65, Hgb 13.5, Hct 42.0, MCV 90.3, MCH 29.0, MCHC 32.1, RDW Std Deviation 46.5 H, RDW Coeff of Joyce 14.2, Plt Count 158, MPV 12.5 H, Immature Gran % (Auto) 1.800 H, Neut % (Auto) 93.9 H, Lymph % (Auto) 3.2 L, [place] % (Auto) 0.9, Eos % (Auto) 0.0, Baso % (Auto) 0.2, Absolute Neuts (auto) 19.6 H, Absolute Lymphs (auto) 0.67 L, Nucleated RBC % 0, Sodium 130 L, Potassium 5.1, Chloride 102, Carbon Dioxide 13.0 L, Anion Gap 15, BUN 15, Creatinine 1.08 H, Estim Creat Clear Calc 78.23, Est GFR (MDRD) Af Amer 77, Est GFR (MDRD) Non-Af 64, BUN/Creatinine Ratio 13.9, Glucose 313 H, Calcium 9.4, Total Bilirubin 1.00, Direct Bilirubin 0.30, AST 10 L, ALT 22, Alkaline Phosphatase 85, Total Protein 7.5, Albumin 4.0, Globulin 3.5, Lipase 10 L 04/27/23 15:11: POC Glucose 206 H 04/27/23 18:27: POC Glucose 178 H 04/27/23 21:43: POC Glucose 166 H 04/28/23 00:00: Urine Color Yellow, Urine Clarity Clear, Urine pH 6.0, Ur Specific [place] 1.010, Urine Protein 15 H, Urine Glucose (UA) 100 H, Urine Ketones 150 A*, Urine Occult Blood Negative, Urine Nitrite Negative, Urine Bilirubin Negative, Urine Urobilinogen Normal, Ur Leukocyte Esterase Negative, Urine RBC 0 SEEN, Urine WBC 0 SEEN, Ur Squamous Epith Cells 0 SEEN, Urine Bacteria RARE, Urine Mucus 0 SEEN 04/28/23 02:10: Sodium 140, Potassium 3.8, Chloride 112 H, Carbon Dioxide 17.0 L, Anion Gap 11, BUN 9, Creatinine 0.77, Estim Creat Clear Calc 113.68, Est GFR (MDRD) Af Amer 115, Est GFR (MDRD) Non-Af 95, BUN/Creatinine Ratio 11.7, Glucose 128 H, Calcium 8.3 L, Acetone Level SMALL H 04/28/23 04:35: POC Glucose 114 H 04/28/23 06:53: WBC 23.3 H, RBC 4.22, Hgb 12.5, Hct 37.3, MCV 88.4, MCH 29.6, MCHC 33.5, RDW Std Deviation 46.4 H, RDW Coeff of Joyce 14.4, Plt Count 155, MPV 11.9, Immature Gran % (Auto) 1.000 H, Neut % (Auto) 87.7 H, Lymph % (Auto) 6.4 L, [place] % (Auto) 4.8, Eos % (Auto) 0.0, Baso % (Auto) 0.1, Absolute Neuts (auto) 20.4 H, Absolute Lymphs (auto) 1.50, Nucleated RBC % 0, Sodium 137, Potassium 3.9, Chloride 114 H, Carbon Dioxide 14.0 L, Anion Gap 9, BUN 7, Creatinine 0.71, Estim Creat Clear Calc 123.28, Est GFR (MDRD) Af Amer 126, Est GFR (MDRD) Non-Af 104, BUN/Creatinine Ratio 9.9 L, Glucose 104, Calcium 8.5 ABG Data ABG results: ABG 04/28/23 04:32 Specimen Type ART Sample Site R Radial pH 7.44 Bicarbonate Actual 18.2 L Total CO2 19 Base Excess -6 L O2 Saturation 99 ABG pCO2 26.7 L ABG pO2 107 H Iban Test Positive Physical Exam Narrative General: Alert, oriented, no apparent distress HEENT: Atraumatic, normocephalic Eyes: Anicteric, normal conjunctiva, extraocular movements grossly intact Neck: Supple Respiratory: Clear to auscultation bilaterally, normal respiratory effort Cardiovascular: Regular rate and rhythm GI: Soft, Erick tender diffusely, no rebound, guarding, rigidity, nondistended Extremities: No edema Musculoskeletal: Moving all extremities Neuro: No overt focal neurological deficits Skin: No rashes appreciated Psych: Cooperative Assessment & Plan Assessment/Plan (1) Intractable vomiting: PLAN: Plan #Intractable nausea and vomiting in the setting of type 1 diabetes with a history of gastroparesis ? Blood sugars elevated this could be an early DKA therefore we will give a significant amount of fluids as well as aggressively control her blood sugar ? We will add a carb controlled diet ? We will continue with Reglan ? She did have leukocytosis this could be reactive however we will check a UA as she is on Bactrim for possible UTI though we have no records of it in our system ?Of note she has had a decreasing bicarb on lab work from 25 down to 13 she has had a worsening pseudohyponatremia all of which could also be pointing to an early DKA, will monitor closely and adjust as necessary -04/28: Continue insulin glargine 10 twice daily with 5 units of Premeal, continue IV Reglan, patient was started on erythromycin overnight as well, patient has been on aggressive fluids, diet as tolerated. Patient did have ketones in urine and acetone was small without any acidosis or anion gap but bicarb is low which is likely multifactorial as chloride is elevated, will switch fluids to LR, continue management otherwise #Leukocytosis -Possibly reactive, UA not suggestive of UTI -Had recent CT of abdomen that was unremarkable -Could have GI source however she reported her symptoms were similar to her gastroparesis symptoms and did not have any significant abdominal pain #History of Marfan's syndrome has had an aortic root repair -04/28: Supportive care, had CTA of the chest 04/26/2023 with no dissection DVT: Ambulation 40 minutes was spent on direct patient care, including documentation as well as chart review and collaboration with colleagues Charges/Coding Visit Charges Inpatient E&M: 64499 Subs Hosp L2
[2023-04-28 08:58] LABS: Bedside Glucose 91 mg/dL (74-106)
[2023-04-28] MEDS: Lactated Ringers 1,000 ML 150 ML IV ×2 (09:24→15:01)
[2023-04-28 12:20] VITALS: BP 134/61; PULSE 57; RESP 18; TEMP 37.6; O2SAT 96
[2023-04-28] MEDS: Dextrose 50%-Water 25 GM/50 ML DISP.SYRIN IV (14:55)
[2023-04-28] MEDS: Metoclopramide 10 MG/2 ML Vial 5 MG IV ×2 (15:01→22:47)
[2023-04-28 15:51] LABS: Bedside Glucose 48 mg/dL (74-106)
--- NOTE | 2023-04-28 16:26 | CASEMGMT ---
Care Mgmt Met with patient to complete GRIFFITH form. GRIFFITH form explained to patient who voiced understanding and signed form. Original form placed in pt?s chart and copy provided to patient. Marlene Valle, Discharge Planning Asst. ?
--- NOTE | 2023-04-28 16:44 | PCM.HOSP.N ---
Hospitalist Note Patient with hypoglycemia, decrease insulin dosing, briefly giving D5 with her fluids. Additionally noted that on 04/23 it was felt patient had UTI and she was placed on Bactrim, has elevated white count, no urine culture at that time, will check urine culture and Pro-Ceferino and given patient's difficulty tolerating anything p.o. we will switch to IV antibiotics. Patient has allergy to Keflex so instead of Rocephin we will give Zosyn
[2023-04-28 16:47] VITALS: BP 126/57; PULSE 60; RESP 16; TEMP 36.8; O2SAT 95
[2023-04-28 16:57] LABS: Bedside Glucose 157 mg/dL (74-106)
[2023-04-28 17:22] LABS: Bacteria 0 SEEN /hpf (None Seen); Mucous, Urine 0 SEEN /hpf (<or=2+); Red Blood Cells-Urine 0 SEEN /hpf (0-5); Squamous Epithelial Cells - UA 0 SEEN /hpf (5-10)
[2023-04-28 17:30] LABS: Anion Gap 8 (5-15); BUN 6 mg/dL (7-18); BUN/Creat Ratio 9.2 RATIO (10-20); Calcium,Total 8.2 mg/dL (8.5-10.1); Chloride 108 mmol/L (98-107); Creatinine, Serum 0.65 mg/dL (0.55-1.02); EST Glomerular Filtration Rate 114 mL/min (>60); Est Glom Filt Rate - Afr Amer 138 mL/min (>60); Estimated Creatinine Clearance 134.66 ml/min; Glucose 175 mg/dL (74-106); Potassium 3.4 mmol/L (3.5-5.1); Sodium Level 139 mmol/L (136-145)
[2023-04-28 17:34] LABS: Color, Urine Straw (Yellow); Glucose, Dipstick 100 mg/dl (Normal); Leukocyte Esterase-Dipstick 25 /ul (Negative); Nitrite-Dipstick Negative (Negative); Occult Blood-Urine Negative /ul (Negative); Protein-Dipstick Negative (Negative); Urine Bilirubin Dipstick Negative (Negative); Urine Clarity Clear (Clear); Urine Urobilinogen Normal (Normal)
[2023-04-28 17:37] LABS: Magnesium 2.1 mg/dL (1.6-2.6)
[2023-04-28 17:38] LABS: Ketone-Dipstick 150 mg/dl (Negative)
[2023-04-28 17:40] LABS: White Blood Cells 0-5 SEEN /hpf (0-5)
[2023-04-28 17:43] LABS: Amphetamine Urine VISTA NEGATIVE (<1000 ng/mL); Barbiturate Urine VISTA NEGATIVE (< 200 ng/mL); Benzodiazepine Urine VISTA NEGATIVE (< 200 ng/mL); Cocaine Urine VISTA NEGATIVE (< 300 ng/mL); Ecstacy Urine VISTA NEGATIVE (< 500 ng/mL); Methadone Urine VISTA NEGATIVE (< 300 ng/mL); PCP Urine VISTA NEGATIVE (< 25 ng/mL); THC Urine VISTA POSITIVE (< 50 ng/mL); Vista UDS pH Range 5
[2023-04-28] MEDS: Dextrose 5%/0.9% NaCl 1,000 ML 50 ML IV (18:23)
[2023-04-28 19:34] LABS: Bedside Glucose 247 mg/dL (74-106)
[2023-04-28] MEDS: Potassium Chloride 10mEq/100mL 10 MEQ/100 ML IV.SOLN. 100 MEQ IV BOLUS ×2 (19:58→20:15)
[2023-04-28 20:33] VITALS: BP 138/65; PULSE 66; RESP 16; TEMP 36.8; O2SAT 98
[2023-04-28 22:07] LABS: Bedside Glucose 76 mg/dL (74-106)
[2023-04-28] MEDS: Capsaicin 0.025% 1 APPLIC Tube TOPICAL (22:53)
[2023-04-29] MEDS: Insulin Lispro 100 UNIT/ML INSULN.PEN SC ×5 (00:18→18:41)
[2023-04-29] MEDS: Insulin Glargine-YFGN 100 UNIT/ML Pen 10 UNIT SC (00:19)
[2023-04-29] MEDS: Insulin Glargine-YFGN 100 UNIT/ML Pen SC ×2 (00:20→10:29)
[2023-04-29 00:21] LABS: Bedside Glucose 319 mg/dL (74-106)
[2023-04-29] MEDS: KCL 40mEq in 0.9% NS 40 MEQ/1,000 ML IV.SOLN 75 MEQ IV (00:33)
[2023-04-29 04:40] VITALS: BP 108/54; PULSE 48; RESP 16; TEMP 37.1; O2SAT 96
[2023-04-29 05:18] VITALS: PULSE 52
[2023-04-29 05:33] LABS: Absolute Lymphocyte Count 2.07 X10^3/uL (0.83-4.51); Absolute Neutrophil Count 11.5 X10^3/uL (2.0-7.7); Basophil# 0.04 X10^3/uL; Basophil% 0.3 % (0-1); Hematocrit 35.2 % (37-47); Hemoglobin 11.5 g/dL (12.0-15.0); Lymphocyte # 2.07 X10^3/ul (0.83-4.51); Lymphocyte % 14.3 % (19-41); Mean Corp Hgb Conc 32.7 g/dL (32-36); Mean Corpuscular Hgb 29.8 pg (27.0-32.0); Mean Corpuscular Volume 91.2 fL (81-99); Mean Platelet Vol. 11.6 fl (6.2-12.0); Monocyte% 4.9 % (0-10); NRBC Flagged by Analyzer 0 % (0-5); Neutrophil # 11.46 X10^3/uL (2.7-7.7); Neutrophil % 79.4 % (47-70); Platelet Count 143 K/mm3 (150-450); RBC Distribution Width CV 14.3 % (11.6-14.6); RBC Distribution Width SD 47.9 fl (35.1-43.9); Red Blood Count 3.86 M/mm3 (4.2-5.4); White Blood Count 14.4 K/mm3 (4.4-11.0)
[2023-04-29] MEDS: proCHLORPERazine 10 MG/2 ML Vial 5 MG IV (05:47)
[2023-04-29 05:58] LABS: Anion Gap 9 (5-15); BUN 9 mg/dL (7-18); BUN/Creat Ratio 11.6 RATIO (10-20); Chloride 108 mmol/L (98-107); Creatinine, Serum 0.78 mg/dL (0.55-1.02); EST Glomerular Filtration Rate 93 mL/min (>60); Est Glom Filt Rate - Afr Amer 113 mL/min (>60); Estimated Creatinine Clearance 112.22 ml/min; Glucose 258 mg/dL (74-106); Potassium 4.5 mmol/L (3.5-5.1); Sodium Level 136 mmol/L (136-145)
[2023-04-29 07:17] LABS: Bedside Glucose 214 mg/dL (74-106)
[2023-04-29 07:17] LABS: Bedside Glucose 250 mg/dL (74-106)
[2023-04-29 09:36] VITALS: BP 115/62; PULSE 58; RESP 18; TEMP 36.7; O2SAT 96
[2023-04-29 11:54] LABS: Bedside Glucose 287 mg/dL (74-106)
[2023-04-29] MEDS: Scopolamine 1mg/72hr Patch 1 PATCH TD (12:05)
[2023-04-29] MEDS: Metoclopramide 10 MG/2 ML Vial 5 MG IV (12:06)
--- NOTE | 2023-04-29 12:46 | PCM.PN.HOSP ---
Reason for Visit Reason for Visit: Diagnoses Vomiting, unspecified (04/27/23) Subjective Subjective Patient still intermittently nauseous and still intermittently tolerating food, finds hot showers very helpful Objective Data Objective Data Vital Signs: Vital Signs Temp Pulse Resp BP Pulse Ox O2 Del Method 98.1 F 58 L 18 115/62 96 Room Air 04/29/23 09:36 04/29/23 09:36 04/29/23 09:36 04/29/23 09:36 04/29/23 09:36 04/29/23 09:36 Oxygen Delivery Method Room Air Weight: 78.698 kg Body Mass Index (BMI) 25.6 Intake & Output: Intake and Output for Last 24 Hours 04/27/23 04/28/23 04/29/23 23:59 23:59 23:59 Intake Total 3110 / 3110 5707.71 / 5707.71 920.12 / 920.12 Balance 3110 / 3110 5707.71 / 5707.71 920.12 / 920.12 Lab / Micro Data 04/29/23 05:24 04/29/23 05:24 Labs: Laboratory Results - last 24 hr 04/28/23 12:40: POC Glucose 76 04/28/23 14:50: POC Glucose 48 L 04/28/23 16:36: POC Glucose 157 H 04/28/23 17:00: Sodium 139, Potassium 3.4 L, Chloride 108 H, Carbon Dioxide 23.0, Anion Gap 8, BUN 6 L, Creatinine 0.65, Estim Creat Clear Calc 134.66, Est GFR (MDRD) Af Amer 138, Est GFR (MDRD) Non-Af 114, BUN/Creatinine Ratio 9.2 L, Glucose 175 H, Calcium 8.2 L, Magnesium 2.1 04/28/23 17:10: Urine Color Straw, Urine Clarity Clear, Urine pH 5.0, Ur Specific [place] 1.010, Urine Protein Negative, Urine Glucose (UA) 100 H, Urine Ketones 150 A*, Urine Occult Blood Negative, Urine Nitrite Negative, Urine Bilirubin Negative, Urine Urobilinogen Normal, Ur Leukocyte Esterase 25 H, Urine RBC 0 SEEN, Urine WBC 0-5 SEEN, Ur Squamous Epith Cells 0 SEEN, Urine Bacteria 0 SEEN, Urine Mucus 0 SEEN 04/28/23 17:15: Urine Opiates Screen NEGATIVE, Urine Methadone Screen NEGATIVE, Ur Barbiturates Screen NEGATIVE, Ur Phencyclidine Scrn NEGATIVE, Ur Amphetamines Screen NEGATIVE, MDMA (Ecstasy) Screen NEGATIVE, U Benzodiazepines Scrn NEGATIVE, Urine Cocaine Screen NEGATIVE, U Cannabinoids Screen POSITIVE H, Ur Drug Screen Comment 04/28/23 19:15: POC Glucose 247 H 04/28/23 21:46: POC Glucose 319 H 04/29/23 04:47: POC Glucose 250 H 04/29/23 05:24: WBC 14.4 H, RBC 3.86 L, Hgb 11.5 L, Hct 35.2 L, MCV 91.2, MCH 29.8, MCHC 32.7, RDW Std Deviation 47.9 H, RDW Coeff of Joyce 14.3, Plt Count 143 L, MPV 11.6, Immature Gran % (Auto) 1.100 H, Neut % (Auto) 79.4 H, Lymph % (Auto) 14.3 L, [place] % (Auto) 4.9, Eos % (Auto) 0.0, Baso % (Auto) 0.3, Absolute Neuts (auto) 11.5 H, Absolute Lymphs (auto) 2.07, Nucleated RBC % 0, Sodium 136, Potassium 4.5, Chloride 108 H, Carbon Dioxide 19.0 L, Anion Gap 9, BUN 9, Creatinine 0.78, Estim Creat Clear Calc 112.22, Est GFR (MDRD) Af Amer 113, Est GFR (MDRD) Non-Af 93, BUN/Creatinine Ratio 11.6, Glucose 258 H, Calcium 8.0 L 04/29/23 06:45: POC Glucose 214 H 04/29/23 11:26: POC Glucose 287 H Micro: Microbiology 04/28/23 17:15 Urine, Clean Catch Urine Culture - Preliminary Culture exhibits no growth. Physical Exam Narrative General: Alert, oriented, no apparent distress HEENT: Atraumatic, normocephalic Eyes: Anicteric, normal conjunctiva, extraocular movements grossly intact Neck: Supple Respiratory: Clear to auscultation bilaterally, normal respiratory effort Cardiovascular: Regular rate and rhythm GI: Soft, slightly tender, no rebound, guarding, rigidity, nondistended Extremities: No edema Musculoskeletal: Moving all extremities Neuro: No overt focal neurological deficits Skin: No rashes appreciated Psych: Superficially cooperative Assessment & Plan Assessment/Plan (1) Intractable vomiting: PLAN: Plan #Intractable nausea and vomiting in the setting of type 1 diabetes with a history of gastroparesis?suspect combination of gastroparesis and cannabis hyperemesis syndrome ? Blood sugars elevated this could be an early DKA therefore we will give a significant amount of fluids as well as aggressively control her blood sugar ? We will add a carb controlled diet ? We will continue with Reglan ? She did have leukocytosis this could be reactive however we will check a UA as she is on Bactrim for possible UTI though we have no records of it in our system ?Of note she has had a decreasing bicarb on lab work from 25 down to 13 she has had a worsening pseudohyponatremia all of which could also be pointing to an early DKA, will monitor closely and adjust as necessary -04/28: Continue insulin glargine 10 twice daily with 5 units of Premeal, continue IV Reglan, patient was started on erythromycin overnight as well, patient has been on aggressive fluids, diet as tolerated. Patient did have ketones in urine and acetone was small without any acidosis or anion gap but bicarb is low which is likely multifactorial as chloride is elevated, will switch fluids to LR, continue management otherwise -04/29: Patient finds hot showers to be very helpful and upon further review does seem she uses marijuana, given relatively benign exam and imaging in the past do suspect that there is a component of cannabis hyperemesis syndrome in addition to her reported history of gastroparesis. It is unclear if she has had gastric emptying study in the past. We will continue azithromycin and Reglan at this time as well as supportive care. Advance diet as tolerated #Leukocytosis -Possibly reactive, UA not suggestive of UTI -Had recent CT of abdomen that was unremarkable -Could have GI source however she reported her symptoms were similar to her gastroparesis symptoms and did not have any significant abdominal pain -04/29: Urine culture no growth however she had already been on antibiotics prior to that, we will plan for course for uncomplicated UTI #History of Marfan's syndrome has had an aortic root repair -04/28: Supportive care, had CTA of the chest 04/26/2023 with no dissection DVT: lovenox subq 40 minutes was spent on direct patient care, including documentation as well as chart review and collaboration with colleagues Charges/Coding Visit Charges Inpatient E&M: 03785 Subs Hosp L2
[2023-04-29] MEDS: Enoxaparin 40 MG/0.4 ML Syringe SC (13:45)
[2023-04-29 14:12] VITALS: BP 132/61; PULSE 62; RESP 18; TEMP 36.8; O2SAT 98
--- NOTE | 2023-04-29 17:44 | DCINST_ITS ---
Discharge Instructions Diet Discharge Diet: Light diet - advance as tolerated Activity Discharge Activity: Return to Normal Activity Follow Up Care Test Results: Test results from this visit will be discussed in further detail at your follow- up appointment, if applicable. Discharge Plan Admission Admit Date/Time: 04/27/23 15:53 Primary Reason for Your Visit: Nausea and vomiting Attending Provider: Ileana Lobo Primary Care Provider: Care Physician,No Primary Consulting Providers: David Smith Instructions Patient Instructions: ED Cyclic Vomiting Syndrome Additional Instructions / Restrictions: DISCHARGE INSTRUCTIONS PLEASE READ *Please take this with you to your next doctors appointment* -You recently finished a prescription for Bactrim, your repeat urine culture was normal and you will not be discharged on any further antibiotics -You will be discharged on 40 mg of Protonix daily to help with any reflux component and scopolamine patches will be sent to your pharmacy -It is strongly advised that you avoid any marijuana as this will worsen your problem over time and can contribute to further episodes even if it temporarily seems to help with nausea -Continue to closely monitor blood glucose, if you have any questions please contact your prescribing physician -Please call your primary care provider's office upon discharge to schedule a hospital follow up within 1 week. -If you do not have a primary care physician of list of local primary care physicians can be provided for you upon discharge. Please ask for this list prior to discharge -For any concerning signs or symptoms please call 911 or proceed to the nearest emergency department Discharge Orders/Prescriptions Prescriptions: New scopolamine base 1 mg over 3 days Patch 3 Day 1 patch transdermal Q3D Qty: 3 0RF pantoprazole [Protonix] 40 mg tablet,delayed release (DR/EC) 40 mg PO DAILY Qty: 30 0RF Continued sulfamethoxazole-trimethoprim 800-160 mg tablet 1 tab PO BID Qty: 6 0RF sucralfate 1 gram tablet 1 g PO ACHS PRN (Reason: STOMACH) Skyrizi 150 mg/mL syringe 150 mg subcut Q84D insulin lispro [Humalog U-100 Insulin] 100 unit/mL solution See Rx Instructions .ROUTE .COMPLEX Patient Comments: use IN THE INSULIN PUMP FOR A TOTAL DAILY DOSE OF 100 UNITS Rx Instructions: 100U VIA PUMP DAILY; Referrals / Follow Up: Care Physician,No Primary [Primary Care Provider] - ( -If you do not have a primary care physician of list of local primary care physicians can be provided for you upon discharge. Please ask for this list prior to discharge) Disposition Disposition (needs filled in before D/C Order can be placed): Home, Self Care
--- NOTE | 2023-04-29 17:53 | NURSING ---
pt called this nurse to bedside, she has eyes wide open, she is smiling and states she is hungry but scared to go home-she was agreeable to try chicken noodle soup and if tolerates, go home-
--- NOTE | 2023-04-29 17:54 | PCM.DC.SUM ---
Providers Date of Admission: 04/27/23 Date of Discharge: 04/29/23 Primary Care Physician: No Primary Care Phys Reason For Visit: INTRACTABLE NAUSEA AND VOMITING Diagnosis Discharge Diagnosis (1) Intractable vomiting: Status: Acute Code(s): R11.10 - Vomiting, unspecified Plan #Intractable nausea and vomiting in the setting of type 1 diabetes with a history of gastroparesis?suspect combination of gastroparesis and cannabis hyperemesis syndrome #Leukocytosis- reactive #History of Marfan's syndrome has had an aortic root repair Medications at Discharge Home Medications sulfamethoxazole 800 mg-trimethoprim 160 mg tablet 1 tab PO BID #6 TABLETS 04/23/23 insulin lispro 100 unit/mL subcutaneous solution (Humalog U-100 Insulin) See Rx Instructions .Route .COMPLEX 04/27/23 risankizumab-rzaa 150 mg/mL subcutaneous syringe (Skyrizi) 150 mg subcut Q84D 04/27/23 sucralfate 1 gram tablet 1 g PO ACHS PRN STOMACH 04/27/23 pantoprazole 40 mg tablet,delayed release (Protonix) 40 mg PO DAILY #30 tabs 04/29/23 scopolamine base 1 mg over 3 days transdermal patch 1 patch transdermal Q3D #3 ea 04/29/23 Hospital Course Summary of Care Provided Minutes Spent on Discharge: 33 Hospital Course: 19-year-old female with history of reported gastroparesis and type 1 diabetes mellitus presented 04/27/2023 with intractable nausea and vomiting for which she has come to the ED twice in the past several days. Additionally had elevated blood sugars and there was concern for early DKA especially given decrease in bicarb. She did have small acetone in her blood and ketones in her urine with low bicarb but never developed an anion gap, she was treated with insulin however given her poor p.o. intake this did drop her glucose and there were multiple adjustments to her medications. Nausea waxed and waned, ultimately patient was given a scopolamine patch which helped significantly and she wished to try to eat and to go home if tolerating diet which was reasonable. Have counseled patient that she should avoid any cannabis use as I strongly suspect this contributed. Given her leukocytosis initially it was unclear if there could be component of infection and she was started on antibiotics and a UA obtained, however patient improved with symptomatic treatment and no localizing signs or symptoms of infection ended up being found and UA negative so patient will not be discharged on further antibiotics. Discharge instructions as follows: -You recently finished a prescription for Bactrim, your repeat urine culture was normal and you will not be discharged on any further antibiotics -You will be discharged on 40 mg of Protonix daily to help with any reflux component and scopolamine patches will be sent to your pharmacy -It is strongly advised that you avoid any marijuana as this will worsen your problem over time and can contribute to further episodes even if it temporarily seems to help with nausea -Continue to closely monitor blood glucose, if you have any questions please contact your prescribing physician -Please call your primary care provider's office upon discharge to schedule a hospital follow up within 1 week. -If you do not have a primary care physician of list of local primary care physicians can be provided for you upon discharge. Please ask for this list prior to discharge -For any concerning signs or symptoms please call 911 or proceed to the nearest emergency department Weight / BMI Weight Weight: 78.698 kg Body Mass Index (BMI) 25.6 ABG / Lab / Microbiology Data 04/29/23 05:24 04/29/23 05:24 Laboratory: Laboratory Results - last 24 hr 04/28/23 12:40: POC Glucose 76 04/28/23 19:15: POC Glucose 247 H 04/28/23 21:46: POC Glucose 319 H 04/29/23 04:47: POC Glucose 250 H 04/29/23 05:24: WBC 14.4 H, RBC 3.86 L, Hgb 11.5 L, Hct 35.2 L, MCV 91.2, MCH 29.8, MCHC 32.7, RDW Std Deviation 47.9 H, RDW Coeff of Joyce 14.3, Plt Count 143 L, MPV 11.6, Immature Gran % (Auto) 1.100 H, Neut % (Auto) 79.4 H, Lymph % (Auto) 14.3 L, [place] % (Auto) 4.9, Eos % (Auto) 0.0, Baso % (Auto) 0.3, Absolute Neuts (auto) 11.5 H, Absolute Lymphs (auto) 2.07, Nucleated RBC % 0, Sodium 136, Potassium 4.5, Chloride 108 H, Carbon Dioxide 19.0 L, Anion Gap 9, BUN 9, Creatinine 0.78, Estim Creat Clear Calc 112.22, Est GFR (MDRD) Af Amer 113, Est GFR (MDRD) Non-Af 93, BUN/Creatinine Ratio 11.6, Glucose 258 H, Calcium 8.0 L 04/29/23 06:45: POC Glucose 214 H 04/29/23 11:26: POC Glucose 287 H Microbiology: Microbiology 04/28/23 17:15 Urine, Clean Catch Urine Culture - Preliminary Culture exhibits no growth. D/C Instructions Discharge Diet: Light diet - advance as tolerated Meaningful Use Info Meaningful Use Diagnoses (Choose all that apply): None applicable Discharge Plan Admission Admit Date/Time: 04/27/23 15:53 Primary Reason for Your Visit: Nausea and vomiting Attending Provider: Ileana Lobo Primary Care Provider: Care Physician,Nya Primary Consulting Providers: David Smith Instructions Patient Instructions: ED Cyclic Vomiting Syndrome Additional Instructions / Restrictions: DISCHARGE INSTRUCTIONS PLEASE READ *Please take this with you to your next doctors appointment* -You recently finished a prescription for Bactrim, your repeat urine culture was normal and you will not be discharged on any further antibiotics -You will be discharged on 40 mg of Protonix daily to help with any reflux component and scopolamine patches will be sent to your pharmacy -It is strongly advised that you avoid any marijuana as this will worsen your problem over time and can contribute to further episodes even if it temporarily seems to help with nausea -Continue to closely monitor blood glucose, if you have any questions please contact your prescribing physician -Please call your primary care provider's office upon discharge to schedule a hospital follow up within 1 week. -If you do not have a primary care physician of list of local primary care physicians can be provided for you upon discharge. Please ask for this list prior to discharge -For any concerning signs or symptoms please call 911 or proceed to the nearest emergency department Discharge Orders/Prescriptions Prescriptions: New scopolamine base 1 mg over 3 days Patch 3 Day 1 patch transdermal Q3D Qty: 3 0RF pantoprazole [Protonix] 40 mg tablet,delayed release (DR/EC) 40 mg PO DAILY Qty: 30 0RF Continued sulfamethoxazole-trimethoprim 800-160 mg tablet 1 tab PO BID Qty: 6 0RF sucralfate 1 gram tablet 1 g PO ACHS PRN (Reason: STOMACH) Skyrizi 150 mg/mL syringe 150 mg subcut Q84D insulin lispro [Humalog U-100 Insulin] 100 unit/mL solution See Rx Instructions .ROUTE .COMPLEX Patient Comments: use IN THE INSULIN PUMP FOR A TOTAL DAILY DOSE OF 100 UNITS Rx Instructions: 100U VIA PUMP DAILY; Referrals / Follow Up: Care Physician,No Primary [Primary Care Provider] - ( -If you do not have a primary care physician of list of local primary care physicians can be provided for you upon discharge. Please ask for this list prior to discharge) Disposition Disposition (needs filled in before D/C Order can be placed): Home, Self Care Charges/Coding Visit Charges Inpatient E&M: 07467 Disch Hosp >30min
[2023-04-29 17:57] LABS: Bedside Glucose 210 mg/dL (74-106)
[2023-04-29] MEDS: 0.9 % NaCl (Sterile) Posiflush 10 mL IV (18:52)
[2023-05-02 16:38] LABS: Procalcitonin 0.08 ng/mL (0.00-0.09)
== END 2023-04-29 19:00 | disposition home or self-care (01) ==
LOC: ED 15:50 → MS3 16:19
PROVIDERS: Hospitalist; Admitting Provider Family Medicine; Emergency Provider Emergency Medicine; Visit Provider Internal Medicine
DX: R11.2 Nausea with vomiting, unspecified (principal); E10.43 Type 1 diabetes mellitus with diabetic autonomic (poly)neuropathy; Z79.4 Long term (current) use of insulin; F17.290 Nicotine dependence, other tobacco product, uncomplicated; Z96.41 Presence of insulin pump (external) (internal); Q87.40 Marfan syndrome, unspecified; Z79.899 Other long term (current) drug therapy; D72.829 Elevated white blood cell count, unspecified
CPT/HCPCS: 36415; 36600; 80048; 80076; 80307; 81001; 82009; 82803; 82962; 83690; 83735; 84145; 85025; 87086; 87088; 96361; 96365; 96366; 96367; 96372; 96375; 96376; 99221; 99285; 99406; J7030; J7120; A4216; G0378

== ENCOUNTER 2023-05-03 04:22 | Emergency (ER) | payer MEDICARE, MEDICAID, SELFPAY ==
--- NOTE | 2023-04-23 09:32 | EKG12_ITS ---
Test Reason : NAUSEA Blood Pressure : / mmHG Vent. Rate : 063 BPM Atrial Rate : 063 BPM P-R Int : 136 ms QRS Dur : 082 ms QT Int : 444 ms P-R-T Axes : 031 062 047 degrees QTc Int : 454 ms Normal sinus rhythm Normal ECG No previous ECGs available Confirmed by KIRILL LOCKE, MARIA ESTHER ([id number]), newspaper editor managing QUENTIN ESPAÑA ([id number]) on 06/01/2023 11:55:27 AM Referred By: Confirmed By:SHAZIA ROY MD
[2023-05-03 04:23] VITALS: BP 121/68; PULSE 89; RESP 16; TEMP 36.5; O2SAT 97; BMI 26.9
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
[2023-05-03] MEDS: DiphenhydrAMINE 50 MG/ML Syringe 25 MG IM (05:48)
[2023-05-03] MEDS: Haloperidol Lactate 5 MG/ML Vial 10 MG IM (05:49)
[2023-05-03 06:03] LABS: Internal QC Validated? YES +Cl - CLEAR BKGD; Pregnancy, Serum, hCG Quali. NEGATIVE Negative
[2023-05-03 06:10] LABS: Anion Gap 13 (5-15); BUN 10 mg/dL (7-18); BUN/Creat Ratio 11.9 RATIO (10-20); Calcium,Total 8.7 mg/dL (8.5-10.1); Chloride 109 mmol/L (98-107); Creatinine, Serum 0.84 mg/dL (0.55-1.02); EST Glomerular Filtration Rate 86 mL/min (>60); Est Glom Filt Rate - Afr Amer 103 mL/min (>60); Glucose 210 mg/dL (74-106); Potassium 3.2 mmol/L (3.5-5.1); Sodium Level 140 mmol/L (136-145)
--- NOTE | 2023-05-03 06:10 | ED.RN ---
pt unable to tolerate accessing her port; port access kit, opened, but port not accessed. attempted iv access; lab work obtained, but no iv access. IM injections ordered.
[2023-05-03 07:28] VITALS: RESP 16
[2023-05-03] MEDS: 0.9% Normal Saline 1,000 ML 999 ML IV (07:55)
[2023-05-03 09:00] VITALS: RESP 16
[2023-05-03 09:50] LABS: Anion Gap 9 (5-15); BUN 8 mg/dL (7-18); BUN/Creat Ratio 12.8 RATIO (10-20); Calcium,Total 7.7 mg/dL (8.5-10.1); Chloride 111 mmol/L (98-107); Creatinine, Serum 0.62 mg/dL (0.55-1.02); EST Glomerular Filtration Rate 120 mL/min (>60); Est Glom Filt Rate - Afr Amer 145 mL/min (>60); Estimated Creatinine Clearance 141.18 ml/min; Glucose 230 mg/dL (74-106); Potassium 3.7 mmol/L (3.5-5.1); Sodium Level 142 mmol/L (136-145)
[2023-05-03 11:35] LABS: Record Kit Lot#, Serum Preg. HCG0000667200
== END 2023-05-03 10:27 | disposition home or self-care (01) ==
PROVIDERS: Emergency Medicine; Emergency Provider Emergency Medicine; Visit Provider Emergency Medicine
DX: R11.10 Vomiting, unspecified (principal); E10.43 Type 1 diabetes mellitus with diabetic autonomic (poly)neuropathy; Z79.4 Long term (current) use of insulin; E86.0 Dehydration; F17.210 Nicotine dependence, cigarettes, uncomplicated; K31.84 Gastroparesis
CPT/HCPCS: 80048; 82009; 84703; 96360; 96361; 96372; 99284; J7030; A4216

== ENCOUNTER 2023-06-25 08:19 | Emergency (ER) | payer MEDICARE, MEDICAID, SELFPAY ==
[2023-06-25 08:21] VITALS: BP 136/45; PULSE 114; RESP 18; TEMP 36.3; O2SAT 96; BMI 25.8
--- NOTE | 2023-06-25 08:36 | EDS_ITS ---
HPI HPI - GI History of Present Illness Chief Complaint: Nausea/Vomiting Informant: patient Abdominal Pain/Flank Pain Onset: Yesterday Context: Sudden Onset Timing: Continuous Quality: Aching Location: Diffuse Worsened by: Nothing Relieved by: Nothing Nausea/Vomiting/Emesis GI Symptom: Positive for Nausea and Vomiting Onset: Yesterday Quality: Positive for Nonbilious; Negative for Blood streaks, Coffee ground or Hematemesis Severity: Severe Diarrhea/Melena/Hematochezia GI Symptom: Positive for Diarrhea; Negative for Melena or Hematochezia Onset: Yesterday Associated Symptoms Associated Symptoms: Negative for Dysuria, Frequency or Hematuria Narrative Narrative: Patient presents with nausea and vomiting that began last night. Patient states she is unable to keep anything down. Patient states she has a history of intractable vomiting and gastroparesis. Patient denies any fevers or chills. Patient denies any hematemesis or coffee-ground emesis. Patient denies any melena or hematochezia. Patient states she did have some diarrhea yesterday. Patient admits to some diffuse abdominal pain. Patient states nothing makes it better and nothing makes it worse. Patient denies any fevers or chills. [facility] Medical History Anxiety Borderline personality disorder Depression Gastroparesis History of tachycardia Intractable vomiting Kidney disease Kidney stones Marfan syndrome PTSD (post-traumatic stress disorder) Smoker Substance abuse Type 1 diabetes Home Medications insulin lispro 100 unit/mL subcutaneous solution (Humalog U-100 Insulin) See Rx Instructions .Route .COMPLEX 04/27/23 [History Last Taken 04/27/23] pantoprazole 40 mg tablet,delayed release (Protonix) 40 mg PO DAILY #30 tabs 04/29/23 [Rx Last Taken Unknown] scopolamine base 1 mg over 3 days transdermal patch 1 patch transdermal Q3D #3 ea 04/29/23 [Rx Last Taken Unknown] Allergy/AdvReac Type Severity Reaction Status Date / Time adhesive tape Allergy Intermediate Rash Verified 06/25/23 08:26 cephalexin [From Keflex] Allergy Intermediate Other Verified 06/25/23 08:26 morphine Allergy Intermediate Rash Verified 06/25/23 08:26 oxycodone [From Percocet] Allergy Intermediate Rash Verified 06/25/23 08:26 ondansetron AdvReac I BLACK Verified 06/25/23 08:26 OUT AND LOSE CONTROL OF MY BLADDER Surgical History H/O aortic root repair History of loop recorder Hx of appendectomy Hx of eye surgery Social History Smoking Status: Current some day smoker tobacco type: cigarettes and e- cigarettes substance use type: marijuana ROS ROS ED Constitutional Constitutional ED: Denies chills or fever(s) Eyes Eyes: Denies blurry vision or change in vision ENT ENT ED: Denies rhinorrhea or sore throat Cardiovascular Cardiovascular: Reports chest pain; Denies palpitations Respiratory/Chest Respiratory/Chest: Reports cough; Denies dyspnea Gastrointestinal Gastrointestinal: Reports abdominal pain, diarrhea, nausea and vomiting Genitourinary Genitourinary ED: Denies dysuria or hematuria Musculoskeletal Musculoskeletal: Denies back pain or neck pain Integumentary Denies abscess or rash Neurologic Neurologic: Denies headache(s) or weakness Allergic/Immunologic Allergic/Immunologic ED: Denies mouth swelling or urticaria EXAM Physical Exam Const Vital Signs: 06/25/23 08:21 Temperature 97.4 F L Temperature Source Temporal Pulse Rate 114 H Respiratory Rate 18 Blood Pressure 136/45 H Blood Pressure Mean 75 Pulse Ox 96 Oxygen Delivery Method Room Air Positive well nourished and well developed General Appearance ED: well developed and NAD HEENT Reports moist mucous membranes Neck supple and no JVD Resp normal respiratory effort and clear to auscultation bilaterally Cardio regular rhythm Rate: tachycardic GI Palpation: soft and tender epigastric, LLQ, RLQ, LUQ, RUQ, periumbilical and suprapubic; Negative for guarding or rebound tenderness present Neuro CN's II-XII intact bilaterally, moves all extremities and no sensory deficits noted Sensorium / Orientation: alert Motor Exam: strength 5/5 throughout Psych mental status grossly normal Mood & Affect: anxious MDM MDM MDM Narrative Medical decision making narrative: Differential diagnosis includes gastroparesis, cannabis hyperemesis syndrome, viral illness, gastritis, pancreatitis, , dehydration, and electrolyte abnormality. CBC will be obtained to assess for leukocytosis and anemia. Comprehensive metabolic profile will be obtained to assess for hepatic function, renal function, and electrolyte abnormality. Serum hCG will be obtained to assess for . History & Record Review Additional record(s) reviewed:: Prior inpatient record, Prior ED visit and Prior labs Lab Data Attestation: I reviewed the patient's lab results. Lab results narrative: CBC was reviewed. There is a mild leukocytosis of 12.1. This was improved from previous result. Comprehensive metabolic profile was reviewed. Glucose was 283. AST was slightly elevated at 39 and ALT was slightly elevated at 70. Bilirubin and alkaline phosphatase were normal. Lipase was reviewed and was normal at 16. Serum hCG was reviewed and was negative. Labs: Laboratory Results - last 24 hr 06/25/23 09:20 WBC 12.1 H RBC 4.56 Hgb 13.5 Hct 40.8 MCV 89.5 MCH 29.6 MCHC 33.1 RDW Std Deviation 42.5 RDW Coeff of Joyce 13.1 Plt Count 180 MPV 12.9 H Immature Gran % (Auto) 0.800 Neut % (Auto) 75.9 H Lymph % (Auto) 17.5 L [place] % (Auto) 5.0 Eos % (Auto) 0.4 Baso % (Auto) 0.4 Absolute Neuts (auto) 9.2 H Absolute Lymphs (auto) 2.12 Nucleated RBC % 0 Sodium 140 Potassium 3.8 Chloride 109 H Carbon Dioxide 22.0 Anion Gap 9 BUN 14 Creatinine 0.81 Estim Creat Clear Calc 104.31 Est GFR (MDRD) Af Amer 108 Est GFR (MDRD) Non-Af 89 BUN/Creatinine Ratio 17.3 Glucose 283 H Calcium 9.1 Total Bilirubin 0.60 AST 39 H ALT 70 H Alkaline Phosphatase 85 Total Protein 6.9 Albumin 3.7 Globulin 3.2 Albumin/Globulin Ratio 1.2 Lipase 16 Serum , Qual NEGATIVE Treatment and Re-Evaluation :: Patient was given IV fluids. Patient was given Benadryl and Thorazine. Patient was given Pepcid. Patient was given a dose of Ativan. Capsaicin was applied to the patient's abdomen. Patient is feeling better on reevaluation. Patient was instructed to continue her antiemetics as needed. Patient was instructed to start with small amounts of liquids more frequently. Patient was instructed to advance her diet to a bland diet as tolerated. Patient was instructed to return if worse in any way. Patient understood and was agreeable with the plan. All questions were answered. Discharge Plan Triage Chief Complaint: Nausea/Vomiting ED Provider: Greg Philip Dx/Rx/DC Orders Clinical Impression: Vomiting, Diabetes mellitus Instructions: ED Vomiting (Adult) Prescriptions: No Action insulin lispro [Humalog U-100 Insulin] 100 unit/mL solution See Rx Instructions .ROUTE .COMPLEX Patient Comments: use IN THE INSULIN PUMP FOR A TOTAL DAILY DOSE OF 100 UNITS Rx Instructions: 100U VIA PUMP DAILY; scopolamine base 1 mg over 3 days Patch 3 Day 1 patch transdermal Q3D Qty: 3 0RF pantoprazole [Protonix] 40 mg tablet,delayed release (DR/EC) 40 mg PO DAILY Qty: 30 0RF Primary Care Provider: Care Physician,No Primary Referrals: Marc Osborne MD [Med Staff - [employer]] - 5-7 Days Care Physician,No Primary [Primary Care Provider] - Disposition Disposition: Home, Self Care
[2023-06-25 09:37] LABS: Absolute Lymphocyte Count 2.12 X10^3/uL (0.83-4.51); Absolute Neutrophil Count 9.2 X10^3/uL (2.0-7.7); Basophil# 0.05 X10^3/uL; Basophil% 0.4 % (0-1); Eosinophil# 0.05 X10^3/uL; Eosinophils% 0.4 % (0-5); Hematocrit 40.8 % (37-47); Hemoglobin 13.5 g/dL (12.0-15.0); Lymphocyte # 2.12 X10^3/ul (0.83-4.51); Lymphocyte % 17.5 % (19-41); Mean Corp Hgb Conc 33.1 g/dL (32-36); Mean Corpuscular Hgb 29.6 pg (27.0-32.0); Mean Corpuscular Volume 89.5 fL (81-99); Mean Platelet Vol. 12.9 fl (6.2-12.0); Monocyte# 0.61 X10^3/uL; NRBC Flagged by Analyzer 0 % (0-5); Neutrophil # 9.21 X10^3/uL (2.7-7.7); Neutrophil % 75.9 % (47-70); Platelet Count 180 K/mm3 (150-450); RBC Distribution Width CV 13.1 % (11.6-14.6); RBC Distribution Width SD 42.5 fl (35.1-43.9); Red Blood Count 4.56 M/mm3 (4.2-5.4); White Blood Count 12.1 K/mm3 (4.4-11.0)
[2023-06-25] MEDS: LORazepam 2 MG/ML Syringe 0.5 MG IV (09:39)
[2023-06-25 09:40] LABS: Internal QC Validated? YES +Cl - CLEAR BKGD; Pregnancy, Serum, hCG Quali. NEGATIVE Negative
[2023-06-25] MEDS: Famotidine 200 MG/20 ML MDV 20 MG in 0.9% Normal Saline (Pres. free 8 ML 300 MG IV (09:41)
[2023-06-25] MEDS: 0.9% Normal Saline (1000mL) 1,000 ML 1000 ML IV (09:44)
[2023-06-25 09:46] LABS: ALB/GLOB Ratio 1.2 RATIO (0.9-2.4); AST(SGOT) 39 U/L (15-37); Alanine Aminotransfer ALT/SGPT 70 U/L (13-56); Albumin, Serum 3.7 g/dL (3.2-5.0); Alkaline Phosphatase 85 U/L (45-117); Anion Gap 9 (5-15); BUN 14 mg/dL (7-18); BUN/Creat Ratio 17.3 RATIO (10-20); Calcium,Total 9.1 mg/dL (8.5-10.1); Chloride 109 mmol/L (98-107); Creatinine, Serum 0.81 mg/dL (0.55-1.02); EST Glomerular Filtration Rate 89 mL/min (>60); Est Glom Filt Rate - Afr Amer 108 mL/min (>60); Estimated Creatinine Clearance 104.31 ml/min; Globulin 3.2 g/dL (2.2-4.2); Glucose 283 mg/dL (74-106); Lipase 16 U/L (13-75); Potassium 3.8 mmol/L (3.5-5.1); Protein, Total 6.9 g/dL (6.4-8.2); Sodium Level 140 mmol/L (136-145)
[2023-06-25] MEDS: Capsaicin 0.025% 1 APPLIC Tube TOPICAL (10:32)
[2023-06-25] MEDS: DiphenhydrAMINE 25 MG, ChlorproMAZINE IM 25 MG in 0.9% Normal Saline (100mL Bag) 100 ML 203 MG IV (10:33)
[2023-06-25] MEDS: 0.9 % NaCl (Sterile) Posiflush 10 mL IV (11:35)
[2023-06-25 11:37] VITALS: PULSE 82; RESP 16; O2SAT 97
== END 2023-06-25 11:38 | disposition home or self-care (01) ==
PROVIDERS: Emergency Provider Emergency Medicine; Visit Provider Emergency Medicine
DX: R11.2 Nausea with vomiting, unspecified (principal); E10.9 Type 1 diabetes mellitus without complications; Z79.4 Long term (current) use of insulin; F17.210 Nicotine dependence, cigarettes, uncomplicated; F17.290 Nicotine dependence, other tobacco product, uncomplicated
CPT/HCPCS: 80053; 83690; 84703; 85025; 96365; 96366; 96367; 96375; 99284; J7030; A4216; J3490

== ENCOUNTER 2023-06-25 23:13 | Emergency (ER) | payer MEDICARE, MEDICAID, SELFPAY ==
[2023-06-25 23:14] VITALS: BP 118/44; PULSE 50; RESP 18; TEMP 36.3; O2SAT 97; BMI 26.5
--- NOTE | 2023-06-25 23:25 | EDS_ITS ---
HPI History of Present Illness Chief Complaint: Nausea/Vomiting Narrative Narrative: Patient presents with nausea and vomiting abdominal cramping. She has a history of diabetic gastroparesis. She was seen earlier for similar symptoms. No fevers or chills. No back pain or tearing sensation. She has no urinary symptoms. [facility] Medical History Anxiety Borderline personality disorder Depression Gastroparesis History of tachycardia Intractable vomiting Kidney disease Kidney stones Marfan syndrome PTSD (post-traumatic stress disorder) Smoker Substance abuse Type 1 diabetes Home Medications insulin lispro 100 unit/mL subcutaneous solution (Humalog U-100 Insulin) See Rx Instructions .Route .COMPLEX 04/27/23 [History Last Taken 04/27/23] pantoprazole 40 mg tablet,delayed release (Protonix) 40 mg PO DAILY #30 tabs 04/29/23 [Rx Last Taken Unknown] scopolamine base 1 mg over 3 days transdermal patch 1 patch transdermal Q3D #3 ea 04/29/23 [Rx Last Taken Unknown] Allergy/AdvReac Type Severity Reaction Status Date / Time adhesive tape Allergy Intermediate Rash Verified 06/25/23 08:26 cephalexin [From Keflex] Allergy Intermediate Other Verified 06/25/23 08:26 morphine Allergy Intermediate Rash Verified 06/25/23 08:26 oxycodone [From Percocet] Allergy Intermediate Rash Verified 06/25/23 08:26 ondansetron AdvReac I BLACK Verified 06/25/23 08:26 OUT AND LOSE CONTROL OF MY BLADDER Surgical History H/O aortic root repair History of loop recorder Hx of appendectomy Hx of eye surgery Social History Smoking Status: Current some day smoker tobacco type: cigarettes and e- cigarettes substance use type: marijuana ROS ROS ED ROS Narrative Past medical history: Reviewed Medications: Reviewed Social history: Noncontributory Review of systems: All systems negative except as indicated General: No fever Eyes: No visual changes ENT: No upper airway congestion, normal voice Neck: No neck pain Cardiovascular: No chest pain Respiratory: No shortness of breath or cough Gastrointestinal: Nausea vomiting and abdominal pain. Genitourinary: No dysuria Musculoskeletal: Denies myalgias no difficulty with ambulation Skin: No rash Neurological: No memory loss, confusion or any focal weakness EXAM Physical Exam Narrative Exam Narrative: Physical exam General: Well nourished, Well developed, No Acute Distress Head: Normocephalic, Atraumatic Eyes: Conjunctiva not pale ENT: Moist mucous membranes Neck: Supple, Nontender, No lymphadenopathy Cardiovascular: Regular rate, Regular rhythm Respiratory: No distress, CTA bilaterally Abdomen: Soft, tenderness throughout the abdomen. Back: Nontender, Normal Inspection. Negative for: CVA tenderness Extremities: Nontender, No edema Skin: Normal color, No rash Neurological: Alert, Normal Strength, Normal Sensation Const Vital Signs: 06/25/23 23:14 06/26/23 01:13 Temperature 97.4 F L Temperature Source Temporal Pulse Rate 50 L 80 Respiratory Rate 18 18 Blood Pressure 118/44 L 97/40 L Blood Pressure Mean 68 59 Pulse Ox 97 97 Oxygen Delivery Method Room Air Room Air MDM MDM MDM Narrative Medical decision making narrative: Patient significantly improved after Haldol, Reglan, Benadryl and Valium. She does not have an anion gap, glucose is slightly elevated. At this time she does not have any abdominal pain I do not believe she needs a CT of the abdomen. She wants to be discharged and I will discharge in stable condition. Her gastroparesis is chronic and recurrent and feels similar to all prior gastroparesis. She does not meet admission criteria since she improved. Lab Data Labs: Laboratory Results - last 24 hr 06/26/23 00:40 WBC 14.2 H RBC 4.21 Hgb 12.3 Hct 38.1 MCV 90.5 MCH 29.2 MCHC 32.3 RDW Std Deviation 42.9 RDW Coeff of Joyce 13.0 Plt Count 160 MPV 12.7 H Immature Gran % (Auto) 0.800 Neut % (Auto) 88.9 H Lymph % (Auto) 6.8 L Mcdowell % (Auto) 3.4 Eos % (Auto) 0.0 Baso % (Auto) 0.1 Absolute Neuts (auto) 12.6 H Absolute Lymphs (auto) 0.96 Nucleated RBC % 0 Sodium 137 Potassium 3.5 Chloride 104 Carbon Dioxide 21.0 Anion Gap 12 BUN 16 Creatinine 0.85 Estim Creat Clear Calc 102.98 Est GFR (MDRD) Af Amer 102 Est GFR (MDRD) Non-Af 84 BUN/Creatinine Ratio 18.9 Glucose 254 H Calcium 8.8 Total Bilirubin 0.90 AST 35 ALT 69 H Alkaline Phosphatase 86 Total Protein 6.8 Albumin 3.6 Globulin 3.2 Albumin/Globulin Ratio 1.1 Lipase < 10 L Discharge Plan Triage Chief Complaint: Nausea/Vomiting ED Provider: Siddharth Herrera Dx/Rx/DC Orders Clinical Impression: Diabetes mellitus, Vomiting, Diabetic gastroparesis Instructions: ED Vomiting (Adult) Prescriptions: No Action insulin lispro [Humalog U-100 Insulin] 100 unit/mL solution See Rx Instructions .ROUTE .COMPLEX Patient Comments: use IN THE INSULIN PUMP FOR A TOTAL DAILY DOSE OF 100 UNITS Rx Instructions: 100U VIA PUMP DAILY; scopolamine base 1 mg over 3 days Patch 3 Day 1 patch transdermal Q3D Qty: 3 0RF pantoprazole [Protonix] 40 mg tablet,delayed release (DR/EC) 40 mg PO DAILY Qty: 30 0RF Primary Care Provider: Care Physician,No Primary Referrals: Care Physician,No Primary [Primary Care Provider] - 3-5 Days Disposition Disposition: Home, Self Care
[2023-06-26] MEDS: DiphenhydrAMINE 50 MG/ML Syringe 25 MG IM (00:04)
[2023-06-26] MEDS: Haloperidol Lactate 5 MG/ML Vial IM (00:04)
[2023-06-26] MEDS: Dicyclomine 20 MG/2 ML Vial IM (00:04)
--- NOTE | 2023-06-26 00:15 | NURSING ---
PT UNABLE TO ALLOW CLEAN STERILE ACCESS TO PORT D/T VOMITING. MD NOTIFIED, IM ORDERS ENTERED. WILL ATTEMPT TO OBTAIN IV/PORT ACCESS WHEN PT IS NOT VOMITING.
[2023-06-26] MEDS: 0.9% Normal Saline (1000mL) 1,000 ML 1000 ML IV (00:30)
[2023-06-26 01:00] LABS: Absolute Lymphocyte Count 0.96 X10^3/uL (0.83-4.51); Absolute Neutrophil Count 12.6 X10^3/uL (2.0-7.7); Basophil# 0.02 X10^3/uL; Basophil% 0.1 % (0-1); Hematocrit 38.1 % (37-47); Hemoglobin 12.3 g/dL (12.0-15.0); Lymphocyte # 0.96 X10^3/ul (0.83-4.51); Lymphocyte % 6.8 % (19-41); Mean Corp Hgb Conc 32.3 g/dL (32-36); Mean Corpuscular Hgb 29.2 pg (27.0-32.0); Mean Corpuscular Volume 90.5 fL (81-99); Mean Platelet Vol. 12.7 fl (6.2-12.0); Monocyte# 0.48 X10^3/uL; Monocyte% 3.4 % (0-10); NRBC Flagged by Analyzer 0 % (0-5); Neutrophil # 12.63 X10^3/uL (2.7-7.7); Neutrophil % 88.9 % (47-70); Platelet Count 160 K/mm3 (150-450); RBC Distribution Width SD 42.9 fl (35.1-43.9); Red Blood Count 4.21 M/mm3 (4.2-5.4); White Blood Count 14.2 K/mm3 (4.4-11.0)
[2023-06-26 01:05] LABS: ALB/GLOB Ratio 1.1 RATIO (0.9-2.4); AST(SGOT) 35 U/L (15-37); Alanine Aminotransfer ALT/SGPT 69 U/L (13-56); Albumin, Serum 3.6 g/dL (3.2-5.0); Alkaline Phosphatase 86 U/L (45-117); Anion Gap 12 (5-15); BUN 16 mg/dL (7-18); BUN/Creat Ratio 18.9 RATIO (10-20); Calcium,Total 8.8 mg/dL (8.5-10.1); Chloride 104 mmol/L (98-107); Creatinine, Serum 0.85 mg/dL (0.55-1.02); EST Glomerular Filtration Rate 84 mL/min (>60); Est Glom Filt Rate - Afr Amer 102 mL/min (>60); Estimated Creatinine Clearance 102.98 ml/min; Globulin 3.2 g/dL (2.2-4.2); Glucose 254 mg/dL (74-106); Lipase < 10 U/L (13-75); Potassium 3.5 mmol/L (3.5-5.1); Protein, Total 6.8 g/dL (6.4-8.2); Sodium Level 137 mmol/L (136-145)
[2023-06-26 01:13] VITALS: BP 97/40; PULSE 80; RESP 18; O2SAT 97
[2023-06-26] MEDS: diazePAM 5 MG Tablet PO (01:52)
[2023-06-26] MEDS: Metoclopramide 10 MG/2 ML Vial IV (01:52)
[2023-06-26] MEDS: 0.9 % NaCl (Sterile) Posiflush 10 mL IV (02:51)
[2023-06-26 02:56] VITALS: BP 96/48
== END 2023-06-26 02:56 | disposition home or self-care (01) ==
PROVIDERS: Emergency Provider Emergency Medicine; Visit Provider Emergency Medicine
DX: E11.43 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 (poly)neuropathy (principal); F17.290 Nicotine dependence, other tobacco product, uncomplicated; K31.84 Gastroparesis
CPT/HCPCS: 80053; 83690; 85025; 96361; 96372; 96374; 99284; J7030; A4216

== ENCOUNTER 2023-08-06 08:51 | Emergency (ER) | payer MEDICARE, MEDICAID, SELFPAY ==
[2023-08-06 08:53] VITALS: BP 126/83; PULSE 115; RESP 18; TEMP 36.4; O2SAT 97; BMI 26.3
--- NOTE | 2023-08-06 09:22 | ED.VIS.GI ---
HPI HPI - GI History of Present Illness Chief Complaint: Nausea/Vomiting Narrative Narrative: 28-year-old female past medical history of diabetic gastroparesis, Marfan syndrome, presents with nausea and vomiting that began at 5 AM. This is similar to her previous diabetic gastroparesis. She states what usually helps her is IV fluids and antiemetics, however she has an allergy to ondansetron. Her last ED visit was approximately 6 weeks ago. She complains of nausea and vomiting and abdominal cramping similar to her previous gastroparesis. She vomited 7-8 times without any blood in her emesis. She states she is also been having diarrhea. [facility] Medical History Anxiety Borderline personality disorder Depression Gastroparesis History of tachycardia Intractable vomiting Kidney disease Kidney stones Marfan syndrome PTSD (post-traumatic stress disorder) Smoker Substance abuse Type 1 diabetes Home Medications insulin lispro 100 unit/mL subcutaneous solution (Humalog U-100 Insulin) See Rx Instructions .Route .COMPLEX 04/27/23 [History Last Taken 04/27/23] Allergy/AdvReac Type Severity Reaction Status Date / Time adhesive tape Allergy Intermediate Rash Verified 08/06/23 08:52 cephalexin [From Keflex] Allergy Intermediate Other Verified 08/06/23 08:52 morphine Allergy Intermediate Rash Verified 08/06/23 08:52 oxycodone [From Percocet] Allergy Intermediate Rash Verified 08/06/23 08:52 ondansetron AdvReac I BLACK Verified 08/06/23 08:52 OUT AND LOSE CONTROL OF MY BLADDER Surgical History H/O aortic root repair History of loop recorder Hx of appendectomy Hx of eye surgery Social History Smoking Status: Current some day smoker tobacco type: cigarettes and e-cigarettes substance use type: marijuana ROS ROS ED ROS Narrative Constitutional: No fever, no chills. HEENT: No sore throat. No neck pain. No loss of vision. No rhinorrhea. Cardiovascular: No chest pain. No palpitations. No pedal edema. Respiratory: No cough, no shortness of breath. Abdominal: Diffuse, crampy abdominal pain. 7-8 episodes of nausea and vomiting. Positive diarrhea. Genitourinary: No dysuria. No hematuria. Musculoskeletal: No myalgias. No arthralgias. Neurologic: No headaches. No dizziness. No lightheadedness. Skin: No rash. No change in color. Psychiatric: No depression. No anxiety. EXAM Physical Exam Narrative Exam Narrative: Afebrile. Vital signs noted. HEENT: Normocephalic. Atraumatic. PERRL, EOMI. Neck soft and supple. No point tenderness or step off. Cardiovascular: Positive tachycardia. Respiratory: No tachypnea. Lungs clear to auscultation bilaterally. Gastrointestinal: Abdomen soft, mild diffuse tenderness, with normoactive bowel sounds. No rebound or guarding. Neurological: Awake. Alert. Nonfocal, nonlateralizing. Skin: No rash. Normal color. No pallor. Musculoskeletal: No pedal edema. Full range of motion extremities. Psychiatric: Tearful on examination. Const Vital Signs: 08/06/23 08:53 08/06/23 10:51 08/06/23 12:00 Temperature 97.6 F L Temperature Source Temporal Pulse Rate 115 H Respiratory Rate 18 16 16 Blood Pressure 126/83 H Blood Pressure Mean 97 Pulse Ox 97 Oxygen Delivery Method Room Air 08/06/23 14:00 Temperature Temperature Source Pulse Rate Respiratory Rate 16 Blood Pressure Blood Pressure Mean Pulse Ox Oxygen Delivery Method MDM MDM MDM Narrative Medical decision making narrative: I reviewed the patient's prior records. She had multiple visits and received multiple medications. She cannot tell me exactly which ones are beneficial to her but does state the Compazine is helpful sometimes. During her last visit she received Haldol. I will start with cyclic vomiting medications including Pepcid and Ativan along with Thorazine and Benadryl. She will be bolused 1 L of normal saline. I will check her electrolytes and a CBC along with a lipase and a serum . I reviewed her laboratory work and she does have a leukocytosis of 21.9, hemoglobin normal at 14.7, hematocrit 44.7, platelet count normal at 199. Her electrolyte panel shows potassium slightly low at 3.3 but she has been having diarrhea. Glucose is low at 69, lipase 16 I do not think that she has pancreatitis. Given her leukocytosis I did a CT of the abdomen and pelvis as she has a negative serum . CT of the abdomen and pelvis is consistent with enterocolitis. Her potassium was replaced intravenously. She did receive Haldol as well to help with her nausea and vomiting. I do feel that she can be discharged to follow-up with her primary care provider. I do not feel narcotic pain medication is indicated for abdominal pain. Disposition is discharged home in stable condition. History & Record Review Discussion w/independent historian: Patient Lab Data Attestation: I reviewed the patient's lab results. Labs: Laboratory Results - last 24 hr 08/06/23 09:21 WBC 21.9 H RBC 5.03 Hgb 14.7 Hct 44.7 MCV 88.9 MCH 29.2 MCHC 32.9 RDW Std Deviation 42.0 RDW Coeff of Joyce 12.9 Plt Count 199 MPV 12.1 H Immature Gran % (Auto) 1.500 H Neut % (Auto) 87.7 H Lymph % (Auto) 4.9 L Wal[place] % (Auto) 5.6 Eos % (Auto) 0.1 Baso % (Auto) 0.2 Absolute Neuts (auto) 19.2 H Absolute Lymphs (auto) 1.08 Nucleated RBC % 0 Sodium 139 Potassium 3.3 L Chloride 108 H Carbon Dioxide 26.0 Anion Gap 5 BUN 16 Creatinine 0.80 Estim Creat Clear Calc 108.44 Est GFR (MDRD) Af Amer 109 Est GFR (MDRD) Non-Af 90 BUN/Creatinine Ratio 20.0 Glucose 69 L Calcium 9.6 Total Bilirubin 0.70 AST 15 ALT 32 Alkaline Phosphatase 94 Total Protein 7.5 Albumin 3.9 Globulin 3.6 Albumin/Globulin Ratio 1.1 Lipase 16 Serum , Qual NEGATIVE Radiography Diagnostic Testing: Clinical Impression(s) from Imaging Studies Abdomen/Pelvis CT 08/06/23 09:37 IMPRESSION: Fluid-filled mildly thickened loops of small bowel and proximal colon which is consistent with enterocolitis. No bowel obstruction. No free air, free fluid or fluid collection. Focal fatty infiltration of the liver. Electronically Signed: Narinder King MD at 10:34 EST , Discharge Plan Triage Chief Complaint: Nausea/Vomiting ED Provider: Juan Marquez Dx/Rx/DC Orders Clinical Impression: Diarrhea, Enterocolitis, Diabetic gastroparesis, Hypokalemia Instructions: ED Diarrhea, Unknown Cause, ED Gastroenteritis, Noninfectious, ED Hypokalemia, ED Diabetic Gastroparesis Prescriptions: No Action insulin lispro [Humalog U-100 Insulin] 100 unit/mL solution See Rx Instructions .ROUTE .COMPLEX Patient Comments: use IN THE INSULIN PUMP FOR A TOTAL DAILY DOSE OF 100 UNITS Rx Instructions: 100U VIA PUMP DAILY; Primary Care Provider: Care Physician,No Primary Referrals: Care Physician,No Primary [Primary Care Provider] - Disposition Disposition: Home, Self Care Discharge Date/Time: 08/06/23 14:32
[2023-08-06 09:28] LABS: Absolute Lymphocyte Count 1.08 X10^3/uL (0.83-4.51); Absolute Neutrophil Count 19.2 X10^3/uL (2.0-7.7); Basophil# 0.05 X10^3/uL; Basophil% 0.2 % (0-1); Eosinophil# 0.03 X10^3/uL; Eosinophils% 0.1 % (0-5); Hematocrit 44.7 % (37-47); Hemoglobin 14.7 g/dL (12.0-15.0); Lymphocyte # 1.08 X10^3/ul (0.83-4.51); Lymphocyte % 4.9 % (19-41); Mean Corp Hgb Conc 32.9 g/dL (32-36); Mean Corpuscular Hgb 29.2 pg (27.0-32.0); Mean Corpuscular Volume 88.9 fL (81-99); Mean Platelet Vol. 12.1 fl (6.2-12.0); Monocyte# 1.22 X10^3/uL; Monocyte% 5.6 % (0-10); NRBC Flagged by Analyzer 0 % (0-5); Neutrophil # 19.18 X10^3/uL (2.7-7.7); Neutrophil % 87.7 % (47-70); Platelet Count 199 K/mm3 (150-450); RBC Distribution Width CV 12.9 % (11.6-14.6); Red Blood Count 5.03 M/mm3 (4.2-5.4); White Blood Count 21.9 K/mm3 (4.4-11.0)
[2023-08-06] MEDS: 0.9% Normal Saline (1000mL) 1,000 ML 1000 ML IV (09:31)
[2023-08-06] MEDS: LORazepam 2 MG/ML Syringe 0.5 MG IV (09:31)
--- NOTE | 2023-08-06 09:37 | CT_ITS ---
STUDY: CT ABDOMEN AND PELVIS WITH CONTRAST REASON FOR EXAM: Female, 28 years old. Abdominal pain. RADIATION DOSAGE (If Supplied By Facility): CTDIvol = ( 17 ) mGy, DLP = ( 902 ) mGycm TECHNIQUE: Transaxial images were obtained through the abdomen and pelvis without oral contrast. 100 ml of Isovue-370 contrast was administered. Sagittal and coronal images were reconstructed. Individualized dose optimization techniques were used for this CT. COMPARISON: Prior study dated: 04/23/2023 FINDINGS: LOWER THORAX: The visualized lung bases are clear. The visualized portions of the heart and pericardium are within normal limits. GALLBLADDER / BILE DUCTS: There are no calcified gallstones present. There is no intrahepatic biliary duct dilatation. The common bile duct is normal in caliber. There are no calcified ductal stones. LIVER: There is focal fatty infiltration of the liver adjacent to the falciform ligament. The liver is otherwise within normal limits. There are no suspicious hepatic lesions. SPLEEN: The spleen is normal in size. PANCREAS: The pancreas is within normal limits. ADRENAL GLANDS: The adrenal glands are within normal limits. KIDNEYS / BLADDER: There are no renal or ureteral stones. There is no hydronephrosis. There are no focal renal lesions. The urinary bladder is partially distended and appears grossly unremarkable. STOMACH / BOWEL: Normal visualized stomach. There is no bowel obstruction. There are fluid-filled mildly thickened loops of small bowel and proximal colon which is consistent with enterocolitis. The patient is status post appendectomy. PERITONEUM/RETROPERITONEUM: There is no abdominal or pelvic free air, free fluid or fluid collection. There is no abnormal soft tissue mass identified. There is no abdominal or pelvic lymphadenopathy. VESSELS: The aorta is normal in caliber. The IVC is unremarkable. BONES: There are no destructive osseous lesions. SOFT TISSUES: The visualized soft tissues are within normal limits. CT/Abdomen/Pelvis W IV Cont ONLY IMPRESSION: Fluid-filled mildly thickened loops of small bowel and proximal colon which is consistent with enterocolitis. No bowel obstruction. No free air, free fluid or fluid collection. Focal fatty infiltration of the liver. Electronically Signed: Narinder King MD at 10:34 EST ,
[2023-08-06 09:38] LABS: Internal QC Validated? YES +Cl - CLEAR BKGD; Pregnancy, Serum, hCG Quali. NEGATIVE Negative
[2023-08-06 09:47] LABS: ALB/GLOB Ratio 1.1 RATIO (0.9-2.4); AST(SGOT) 15 U/L (15-37); Alanine Aminotransfer ALT/SGPT 32 U/L (13-56); Albumin, Serum 3.9 g/dL (3.2-5.0); Alkaline Phosphatase 94 U/L (45-117); Anion Gap 5 (5-15); BUN 16 mg/dL (7-18); Calcium,Total 9.6 mg/dL (8.5-10.1); Chloride 108 mmol/L (98-107); EST Glomerular Filtration Rate 90 mL/min (>60); Est Glom Filt Rate - Afr Amer 109 mL/min (>60); Estimated Creatinine Clearance 108.44 ml/min; Globulin 3.6 g/dL (2.2-4.2); Glucose 69 mg/dL (74-106); Lipase 16 U/L (13-75); Potassium 3.3 mmol/L (3.5-5.1); Protein, Total 7.5 g/dL (6.4-8.2); Sodium Level 139 mmol/L (136-145)
[2023-08-06] MEDS: DiphenhydrAMINE 25 MG, ChlorproMAZINE IM 50 MG in 0.9% Normal Saline (250mL Bag) 250 ML 252.5 MG IV (09:51)
[2023-08-06] MEDS: Famotidine 200 MG/20 ML MDV 20 MG in 0.9% Normal Saline (Pres. free 8 ML 300 MG IV (09:51)
[2023-08-06 10:51] VITALS: RESP 16
[2023-08-06] MEDS: Haloperidol Lactate 5 MG/ML Vial 2 MG IV (11:30)
[2023-08-06] MEDS: KCL 40mEq in 0.9% NS 40 MEQ/1,000 ML IV.SOLN 250 MEQ IV (11:34)
[2023-08-06 12:00] VITALS: RESP 16
[2023-08-06 14:00] VITALS: RESP 16
[2023-08-07 07:24] LABS: Bedside Glucose 397 mg/dL (74-106)
== END 2023-08-06 14:32 | disposition home or self-care (01) ==
PROVIDERS: Emergency Provider Emergency Medicine; Visit Provider Emergency Medicine
DX: K52.9 Noninfective gastroenteritis and colitis, unspecified (principal); E10.43 Type 1 diabetes mellitus with diabetic autonomic (poly)neuropathy; E10.649 Type 1 diabetes mellitus with hypoglycemia without coma; Z79.4 Long term (current) use of insulin; E87.6 Hypokalemia; Q87.40 Marfan syndrome, unspecified; K31.84 Gastroparesis; F17.210 Nicotine dependence, cigarettes, uncomplicated; F17.290 Nicotine dependence, other tobacco product, uncomplicated
CPT/HCPCS: 36591; 74177; 80053; 82962; 83690; 84703; 85025; J7030; J7050; Q9967; A4216; J3490

== ENCOUNTER 2023-08-06 21:32 | Inpatient (IN) | payer MEDICARE, MEDICAID, SELFPAY ==
[2023-08-06 21:33] VITALS: BP 138/97; PULSE 82; RESP 16; TEMP 36.6; O2SAT 100; BMI 25.9
[2023-08-06] MEDS: proCHLORPERazine 10 MG/2 ML Vial IM (22:50)
--- NOTE | 2023-08-06 22:52 | EX.ED.DYSGE1 ---
HPI History of Present Illness Chief Complaint: Nausea/Vomiting Informant: patient Narrative Narrative: Patient is a 28-year-old female with past medical history of type 1 diabetes and diabetic gastroparesis. She was seen earlier today secondary to nausea vomiting abdominal pain. At that time she was worked up with basic blood work and CT scan and found to have enterocolitis consistent with her symptoms but not in DKA and after hydration and treatment she was discharged home. She states that since returning home she has noted that her blood sugar is elevated and she does not believe her insulin pump was functioning properly. Secondary to the increased glucose she was concerned as she has been in DKA in the past and therefore comes in for evaluation [facility] Medical History Anxiety Borderline personality disorder Depression Gastroparesis History of tachycardia Intractable vomiting Kidney disease Kidney stones Marfan syndrome PTSD (post-traumatic stress disorder) Smoker Substance abuse Type 1 diabetes Home Medications insulin lispro 100 unit/mL subcutaneous solution (Humalog U-100 Insulin) See Rx Instructions .Route .COMPLEX 04/27/23 [History Last Taken 04/27/23] Allergy/AdvReac Type Severity Reaction Status Date / Time adhesive tape Allergy Intermediate Rash Verified 08/06/23 21:38 cephalexin [From Keflex] Allergy Intermediate Other Verified 08/06/23 21:38 morphine Allergy Intermediate Rash Verified 08/06/23 21:38 oxycodone [From Percocet] Allergy Intermediate Rash Verified 08/06/23 21:38 ondansetron AdvReac I BLACK Verified 08/06/23 21:38 OUT AND LOSE CONTROL OF MY BLADDER Family History no significant family his Surgical History H/O aortic root repair History of loop recorder Hx of appendectomy Hx of eye surgery Social History Smoking Status: Current some day smoker tobacco type: cigarettes and e-cigarettes substance use type: marijuana ROS ROS ED Constitutional Constitutional ED: Denies chills or fever(s) ENT ENT ED: Denies rhinorrhea or sore throat Cardiovascular Cardiovascular: Denies chest pain Respiratory/Chest Respiratory/Chest: Denies cough or dyspnea Gastrointestinal Gastrointestinal: Reports abdominal pain, diarrhea, nausea and vomiting Genitourinary Genitourinary ED: Denies dysuria Musculoskeletal Musculoskeletal: Reports myalgias Integumentary Denies rash Neurologic Neurologic: Reports weakness; Denies headache(s) Hematologic/Lymphatic Hematologic/Lymphatic: Denies easy bleeding or easy bruising EXAM Physical Exam Const Vital Signs: 08/06/23 21:33 Temperature 97.8 F Temperature Source Oral Pulse Rate 82 Respiratory Rate 16 Blood Pressure 138/97 H Blood Pressure Mean 110 Pulse Ox 100 Oxygen Delivery Method Room Air Positive well nourished and well developed General Appearance ED: well developed; Negative for pallor HEENT HEENT Narrative: Mucous membranes are slightly dry and tacky No airway edema or compromise No tongue or lip swelling noted No secondary changes in the posterior pharynx to suggest infection Eyes PERRL and EOMs intact bilaterally General Eye ED: Negative for scleral icterus Neck supple Neck Narrative: No nuchal rigidity or meningeal signs noted Resp normal respiratory effort and clear to auscultation bilaterally Cardio regular rate and regular rhythm Rate: other Other Details: Heart is regular rate and rhythm without murmurs rubs or gallops Radial and carotid pulses are equal and symmetric GI non-distended GI Narrative: Abdomen is soft and nondistended with hyperactive bowel sounds. There is mild diffuse pain on palpation without voluntary guarding or rigidity. No pulsatile mass or fluid wave Auscultation: hyperactive bowel sounds Palpation: soft Extremity normal to inspection Neuro oriented x3, CN's II-XII intact bilaterally and no sensory deficits noted Sensorium / Orientation: alert Motor Exam: strength 5/5 throughout Psych mental status grossly normal Skin no rashes or lesions noted and skin turgor normal General Skin Exam: Negative for jaundice or pallor MDM MDM MDM Narrative Medical decision making narrative: Patient presented to the ER and reported persistent abdominal pain with bouts of nausea and vomiting but now reported that her blood sugars were elevated and believe her insulin pump was malfunctioning. There is concern for acute kidney injury versus electrolyte derangement versus dehydration versus diabetic ketoacidosis and secondary to this I did elect to repeat basic laboratory studies. Patient's white count was elevated at 20 but this is similar nature to earlier in the day. However her sugar is now elevated at 550 her lactic acid is elevated her anion gap is elevated her serum bicarb is decreased and her acetone level was small going with mild to moderate DKA. Based on this she was given 2 L of fluid and based on the DKA she will need admitted to the ICU for insulin drip and continued insulin and fluid resuscitation. Therefore I did discuss the case with the hospitalist who does agree to accept the patient at this time. Patient will be admitted to their service for further care. As the white count has remained stable and she is afebrile and she had a normal CT scan earlier in the day I do not feel there is need for repeat imaging studies. History & Record Review Discussion w/independent historian: Patient Lab Data Attestation: I reviewed the patient's lab results. Labs: Laboratory Results - last 24 hr 08/06/23 22:55 WBC 20.3 H RBC 4.35 Hgb 12.6 Hct 40.5 MCV 93.1 MCH 29.0 MCHC 31.1 L D RDW Std Deviation 45.1 H RDW Coeff of Joyce 13.2 Plt Count 140 L MPV 13.8 H Immature Gran % (Auto) 2.700 H Neut % (Auto) 92.7 H Lymph % (Auto) 2.1 L Richardson % (Auto) 2.0 Eos % (Auto) 0.0 Baso % (Auto) 0.5 Absolute Neuts (auto) 18.8 H Absolute Lymphs (auto) 0.42 L Nucleated RBC % 0 Sodium 132 L Potassium 4.8 Chloride 101 Carbon Dioxide 14.0 L Anion Gap 17 H BUN 19 H Creatinine 1.18 H Estim Creat Clear Calc 73.52 Est GFR (MDRD) Af Amer 70 Est GFR (MDRD) Non-Af 58 L BUN/Creatinine Ratio 16.1 Glucose 548 H* Lactic Acid 4.4 H* Calcium 9.1 Magnesium 2.0 Acetone Level SMALL H ABG Data ABG results: ABG 08/06/23 23:04 Specimen Type ISABELLE Sample Site Not entered VBG pH 7.34 VBG pO2 58 H VBG HCO3 12 L VBG Total CO2 13 L VBG O2 Sat (Calc) 89 H VBG Base Excess -14 L POC Mix VBG pCO2 Pt Tmp 22.9 L O2 Delivery Device Room Air Management Discussion w/another healthcare provider: Hospitalist Critical Care Time Critical Care Time: Yes Critical care time (excluding procedures): Discussing w/Patient &/or Family/Hospital Clerk and - (Critical care time of of 33 minutes) Discharge Plan Triage Chief Complaint: Nausea/Vomiting ED Provider: Andes,Lul Dx/Rx/DC Orders Clinical Impression: DKA (diabetic ketoacidoses), Type 1 diabetes, Nausea & vomiting, Diabetic gastroparesis Primary Care Provider: Care Physician,No Primary Disposition Disposition: Acute Care Hospital [facility]
[2023-08-06] MEDS: 0.9% Normal Saline (1000mL) 1,000 ML 999 ML IV (22:57)
[2023-08-06 23:07] LABS: Blood Gas Specimen Type VEN; O2 Delivery Device Room Air; SITE Not entered; VBG BASE EXCESS -14 mmol/L (-1.0-3.5); VBG Bicarbonate 12 mmol/L (22-26); VBG PO2 58 mmHg (25-40); VBG SO2 89 % (50-70); VBG TCO2 13 mmol/L (23-33); VBG pCO2 22.9 mmHg (41-51); VBG pH 7.34 (7.32-7.42)
[2023-08-06 23:31] LABS: Absolute Lymphocyte Count 0.42 X10^3/uL (0.83-4.51); Absolute Neutrophil Count 18.8 X10^3/uL (2.0-7.7); Basophil% 0.5 % (0-1); Eosinophil# 0.01 X10^3/uL; Hematocrit 40.5 % (37-47); Hemoglobin 12.6 g/dL (12.0-15.0); Lymphocyte # 0.42 X10^3/ul (0.83-4.51); Lymphocyte % 2.1 % (19-41); Mean Corp Hgb Conc 31.1 g/dL (32-36); Mean Corpuscular Volume 93.1 fL (81-99); Mean Platelet Vol. 13.8 fl (6.2-12.0); NRBC Flagged by Analyzer 0 % (0-5); Neutrophil # 18.79 X10^3/uL (2.7-7.7); Neutrophil % 92.7 % (47-70); POSITIVE DIFFERENTIAL YES; Platelet Count 140 K/mm3 (150-450); RBC Distribution Width CV 13.2 % (11.6-14.6); RBC Distribution Width SD 45.1 fl (35.1-43.9); Red Blood Count 4.35 M/mm3 (4.2-5.4); White Blood Count 20.3 K/mm3 (4.4-11.0)
[2023-08-06 23:52] LABS: Anion Gap 17 (5-15); BUN 19 mg/dL (7-18); BUN/Creat Ratio 16.1 RATIO (10-20); Calcium,Total 9.1 mg/dL (8.5-10.1); Chloride 101 mmol/L (98-107); Creatinine, Serum 1.18 mg/dL (0.55-1.02); EST Glomerular Filtration Rate 58 mL/min (>60); Est Glom Filt Rate - Afr Amer 70 mL/min (>60); Estimated Creatinine Clearance 73.52 ml/min; Glucose 548 mg/dL (74-106); Lactic Acid 4.4 mmol/L (0.4-1.9); Potassium 4.8 mmol/L (3.5-5.1); Sodium Level 132 mmol/L (136-145)
[2023-08-06 23:59] LABS: Differential Indicated SCAN CRITERIA MET
[2023-08-07] VITALS (21 sets, daily range): BP systolic 85–136; BP diastolic 33–56; PULSE 87–129; RESP 16–30; TEMP 36.3–37.1; O2SAT 95–99; BMI 25.9
--- NOTE | 2023-08-07 00:06 | HP.PCM.HOS_ITS ---
[facility] - General General Date of Admission: 08/07/23 Date of Service: 08/07/23 Chief Complaint: Nausea, Vomiting, Abdominal Pain and Hyperglycemia. HPI Tracee VILLA, is a 28 F with a past medical history of DM-1; s/p insulin pump - uncontrolled with Hyperglycemia with several bouts of DKA, Diabetic Gastroparesis, Marfan's Syndrome; with history of aortic root repair and previous eye surgery, history of Renal Calculi, Borderline Personality Disorder, PTSD, Tobacco Abuse and history Cannabis Abuse (with medical marijuana card) who presents to [facility] ER complaining of nausea, vomiting, abdominal pain and hyperglycemia. Ms. Villa reports her symptoms began approximately 2 days prior to admission with a gradual onset of nausea, vomiting with bilious emesis and abdominal pain. She then came to the ER earlier on August 06, 2023, and had a CT scan consistent with enterocolitis and hypoglycemia of 69 mg/dL present on admission complicated by leukocytosis of 21.9 present on admission she was then treated with IV fluids and her mild hypokalemia of 3.3 mmol/L present on admission was treated with good result and she was subsequently discharged home. She describes the abdominal pain as cramping, moderate to severe, waxing and waning and generalized with nothing making the pain better or worse. She denies associated fever, chills or constipation but she does admit to diarrhea. She admits her symptoms are similar to her previous bouts of DKA - but this episode is more severe. Then later in the evening on August 06, 2023 she returned stating that she did not think her insulin pump was working with severe hyperglycemia of 548 mg/dL with a lactic acidosis of 4.4 mmol/L present on admission and positive serum acetone consistent with diabetic ketoacidosis complicated by leukocytosis of 20.3 present on admission plus clinical evidence of intractable nausea and vomiting with nonbloody diarrhea and she was then admitted to the ICU for ongoing care under the DKA protocol for a stay that is expected to be greater than 48 hours. [facility] Medical History Anxiety Borderline personality disorder Depression Gastroparesis History of tachycardia Intractable vomiting Kidney disease Kidney stones Marfan syndrome PTSD (post-traumatic stress disorder) Smoker Substance abuse Type 1 diabetes Home Medications insulin lispro 100 unit/mL subcutaneous solution (Humalog U-100 Insulin) See Rx Instructions .Route .COMPLEX 04/27/23 [History Last Taken 04/27/23] Allergy/AdvReac Type Severity Reaction Status Date / Time adhesive tape Allergy Intermediate Rash Verified 08/06/23 21:38 cephalexin [From Keflex] Allergy Intermediate Other Verified 08/06/23 21:38 morphine Allergy Intermediate Rash Verified 08/06/23 21:38 oxycodone [From Percocet] Allergy Intermediate Rash Verified 08/06/23 21:38 ondansetron AdvReac I BLACK Verified 08/06/23 21:38 OUT AND LOSE CONTROL OF MY BLADDER Family History no significant family his Surgical History H/O aortic root repair History of loop recorder Hx of appendectomy Hx of eye surgery Social History Smoking Status: Current some day smoker tobacco type: cigarettes and e-ciga rettes substance use type: marijuana ROS ROS Narrative Review of systems: Constitutional: Patient denies fever or chills. Eyes: Patient denies visual changes. ENT: Patient denies runny nose or sore throat. Cardiovascular: Patient denies chest pain or palpitations. Respiratory: Patient denies shortness of breath or cough. Gastrointestinal: Patient admits to abdominal pain nausea and bilious emesis with nonbloody diarrhea. Genitourinary patient denies dysuria, hematuria or urinary frequency. Musculoskeletal: Patient admits to myalgias. Integumentary: Patient denies rash. Neurologic: Patient admits to generalized weakness but denies headache or other focal neurologic deficits. Hematologic: Patient denies easy bleeding or easy bruisability. Allergic: Patient denies lip swelling, tongue swelling or urticaria. Psychiatric: Patient admits to depression and anxiety but denies suicidal ideation. Endocrinologic: Patient admits to polyuria and polydipsia and she claims her insulin pump is not functioning appropriately. 14 point review of systems otherwise negative except for positives noted above in HPI. Vital Signs Vital Signs Vital Signs: 08/06/23 21:33 Temperature 97.8 F Temperature Source Oral Pulse Rate 82 Respiratory Rate 16 Blood Pressure 138/97 H Blood Pressure Mean 110 Pulse Ox 100 Oxygen Delivery Method Room Air Weight Weight: 175 lb 14.862 oz Body Mass Index (BMI) 25.9 Physical Exam Const alert, oriented x3, no apparent distress and average body habitus General Appearance: cooperative HEENT normocephalic, head/scalp atraumatic, hearing grossly normal bilaterally and moist oral mucous membranes HEENT Narrative: Oropharynx dry. Eyes PERRL and EOMs intact bilaterally Neck no lymphadenopathy and supple Resp normal respiratory effort, no retractions, no use of accessory muscles and clear to auscultation bilaterally Cardio regular rate and regular rhythm GI normal to inspection, nondistended, normoactive bowel sounds, soft to palpation and non-distended GI Narrative: Mild diffuse pain with palpation without voluntary guarding or rigidity. Extremity normal to inspection and full ROM Skin Skin Narrative: Patient has no evidence of rash at this time. Neuro oriented x3, CN's II-XII intact bilaterally, moves all extremities and no focal motor deficits Sensorium / Orientation: awake, alert, oriented to person, oriented to place and oriented to time Speech: speech normal Motor Exam: strength 5/5 throughout Psych Mood & Affect: anxious Results Medical Records Data Attestation: I reviewed the patient's medical records Lab / Micro Data Attestation: I reviewed the patient's lab results. 08/06/23 22:55 08/07/23 01:45 Labs: Laboratory Results - last 24 hr 08/06/23 22:55: WBC 20.3 H, RBC 4.35, Hgb 12.6, Hct 40.5, MCV 93.1, MCH 29.0, MCHC 31.1 L D, RDW Std Deviation 45.1 H, RDW Coeff of Joyce 13.2, Plt Count 140 L, MPV 13.8 H, Immature Gran % (Auto) 2.700 H, Neut % (Auto) 92.7 H, Lymph % (Auto) 2.1 L, Nicholas % (Auto) 2.0, Eos % (Auto) 0.0, Baso % (Auto) 0.5, Absolute Neuts (auto) 18.8 H, Absolute Lymphs (auto) 0.42 L, Nucleated RBC % 0, Sodium 132 L, Potassium 4.8, Chloride 101, Carbon Dioxide 14.0 L, Anion Gap 17 H, BUN 19 H, Creatinine 1.18 H, Estim Creat Clear Calc 73.52, Est GFR (MDRD) Af Amer 70, Est GFR (MDRD) Non-Af 58 L, BUN/Creatinine Ratio 16.1, Glucose 548 H*, Lactic Acid 4.4 H*, Calcium 9.1, Magnesium 2.0, Acetone Level SMALL H ABG Data ABG results: ABG 08/06/23 23:04 Specimen Type ISABELLE Sample Site Not entered VBG pH 7.34 VBG pO2 58 H VBG HCO3 12 L VBG Total CO2 13 L VBG O2 Sat (Calc) 89 H VBG Base Excess -14 L POC Mix VBG pCO2 Pt Tmp 22.9 L O2 Delivery Device Room Air Attestation: I personally reviewed and interpreted this ABG as follows: Interpretation: Metabolic acidosis consistent with DKA. Assessment & Plan Assessment/Plan (1) DKA (diabetic ketoacidoses): QUALIFIERS: Diabetes mellitus complication detail: without coma Diabetes mellitus type: type 1 Qualified Code(s): E10.10 - Type 1 diabetes mellitus with ketoacidosis without coma (2) Diabetic gastroparesis: (3) Enterocolitis: (4) Intractable nausea and vomiting: PLAN: Plan 1. Diabetic ketoacidosis; with hyperglycemia of 548 mg/dL and lactic acidosis of 4.4 mmol/L present on admission plus positive serum acetone with alleged insulin pump malfunction - Admit to ICU for treatment under DKA protocol. Continue IV insulin and vigorously volume resuscitate. Recheck serum ketones in the a.m. to objectively evaluate for potential improvement with treatment. Also recheck VBG in the a.m. to follow trend of response to therapy. Finally, we will consult early childhood special educator to see this patient in the a.m. on rounds for further teaching about her insulin pump to help prevent serial readmission with help appreciated in advance. 2. Intractable nausea and vomiting in the setting of known diabetic gastroparesis complicating #1 - Give IV Zofran as needed and monitor for improvement. 3. Enterocolitis evident on CT done earlier today with leukocytosis of 20.3 present on admission likely precipitating #1 & #2 - Place on enteric precautions. Check stool studies to evaluate for potential underlying infectious agent, including: C. difficile colitis toxin AMB PCR, fecal ova and parasites, fecal leukocytes and Hemoccult. Start empiric IV Flagyl until stool studies returned prevent further clinical deterioration in the interim. 4. Borderline Personality Disorder and PTSD - Stable. Continue home regimen as previous plus give prn IM Vistaril for breakthrough agitation. 5. Marfan's Syndrome; with history of aortic root repair and previous eye surgery - Noted. 6. History of Renal Calculi - Stable with no evidence of recurrence at this time. 7. Tobacco Abuse - Tobacco Cessation was strongly encouraged with Nicotine patch offered to control cravings. 8. History Cannabis Abuse (with medical marijuana card) - Noted. 9. DVT prophylaxis - Lovenox 40 mg sq daily plus SCD's. Total time: Approximately 75 minutes. Charges/Coding Visit Charges Inpatient E&M: 84191 Init Hosp L3
[2023-08-07 00:25] LABS: Bacteria 0 SEEN /hpf (None Seen); Mucous, Urine 0 SEEN /hpf (<or=2+); Red Blood Cells-Urine 0 SEEN /hpf (0-5); White Blood Cells 0 SEEN /hpf (0-5)
[2023-08-07 00:30] LABS: Color, Urine Yellow (Yellow); Glucose, Dipstick 1000 mg/dl (Normal); Leukocyte Esterase-Dipstick Negative /ul (Negative); Nitrite-Dipstick Negative (Negative); Occult Blood-Urine 10 /ul (Negative); Protein-Dipstick Negative (Negative); Specific Gravity, Urine 1.015 (1.002-1.030); Urine Bilirubin Dipstick Negative (Negative); Urine Clarity Clear (Clear); Urine Urobilinogen Normal (Normal)
[2023-08-07] MEDS: Insulin Lispro 100 UNIT in 0.9% Normal Saline (100mL Bag) 99 ML CONT INF (00:37)
[2023-08-07] MEDS: 0.9% Normal Saline (1000mL) 1,000 ML 999 ML IV (00:37)
[2023-08-07] MEDS: Metoclopramide 10 MG/2 ML Vial IV (00:40)
[2023-08-07] MEDS: Ketorolac 30 MG/ML Syringe IV (00:40)
[2023-08-07 00:50] LABS: Ketone-Dipstick 150 mg/dl (Negative)
[2023-08-07 00:53] LABS: Squamous Epithelial Cells - UA 0-5 SEEN /hpf (5-10)
[2023-08-07 00:55] LABS: Differential Comment SCANNED
[2023-08-07] MEDS: 0.9 % NaCl (Sterile) Posiflush 10 mL IV ×2 (01:52→21:57)
[2023-08-07] MEDS: metroNIDAZOLE 500 MG/100 ML BAG 100 MG IV ×4 (01:53→21:57)
[2023-08-07] MEDS: 0.9% Normal Saline (1000mL) 1,000 ML 250 ML IV (02:09)
[2023-08-07 02:42] LABS: Magnesium 1.8 mg/dL (1.6-2.6)
[2023-08-07 03:00] LABS: Anion Gap 17 (5-15); BUN 20 mg/dL (7-18); Calcium,Total 7.6 mg/dL (8.5-10.1); Chloride 107 mmol/L (98-107); Creatinine, Serum 1.25 mg/dL (0.55-1.02); EST Glomerular Filtration Rate 54 mL/min (>60); Est Glom Filt Rate - Afr Amer 65 mL/min (>60); Glucose 425 mg/dL (74-106); Potassium 4.2 mmol/L (3.5-5.1); Sodium Level 136 mmol/L (136-145)
[2023-08-07 03:03] LABS: Reflex Lactate? Y
[2023-08-07 03:23] LABS: Bedside Glucose 413 mg/dL (74-106)
[2023-08-07 05:32] LABS: Bedside Glucose 362 mg/dL (74-106)
[2023-08-07 05:32] LABS: Bedside Glucose 343 mg/dL (74-106)
[2023-08-07] MEDS: proCHLORPERazine 10 MG/2 ML Vial 5 MG IV ×2 (06:06→21:52)
[2023-08-07 06:08] LABS: Blood Gas Specimen Type VEN; O2 Delivery Device Not entered; SITE Not entered; VBG BASE EXCESS -16 mmol/L (-1.0-3.5); VBG Bicarbonate 12 mmol/L (22-26); VBG PO2 52 mmHg (25-40); VBG SO2 81 % (50-70); VBG TCO2 13 mmol/L (23-33); VBG pH 7.24 (7.32-7.42)
[2023-08-07 06:45] LABS: Anion Gap 15 (5-15); BUN 20 mg/dL (7-18); BUN/Creat Ratio 17.9 RATIO (10-20); Calcium,Total 7.8 mg/dL (8.5-10.1); Chloride 108 mmol/L (98-107); Creatinine, Serum 1.12 mg/dL (0.55-1.02); EST Glomerular Filtration Rate 61 mL/min (>60); Est Glom Filt Rate - Afr Amer 74 mL/min (>60); Estimated Creatinine Clearance 77.45 ml/min; Glucose 374 mg/dL (74-106); Potassium 4.1 mmol/L (3.5-5.1); Sodium Level 137 mmol/L (136-145)
[2023-08-07 06:55] LABS: Lactic Acid 2.2 mmol/L (0.4-1.9)
[2023-08-07 08:29] LABS: Bedside Glucose 336 mg/dL (74-106)
[2023-08-07] MEDS: Ketorolac 15 MG/ML Vial IV ×2 (08:29→21:52)
[2023-08-07 08:36] LABS: Bedside Glucose 331 mg/dL (74-106)
[2023-08-07 08:36] LABS: Bedside Glucose 333 mg/dL (74-106)
[2023-08-07 08:36] LABS: Bedside Glucose 362 mg/dL (74-106)
[2023-08-07 09:35] LABS: Bedside Glucose 252 mg/dL (74-106)
[2023-08-07] MEDS: Dext 5%-0.45% NS 1,000 ML 150 ML IV (10:23)
[2023-08-07] MEDS: Enoxaparin 40 MG/0.4 ML Syringe SC (10:23)
[2023-08-07 10:36] LABS: Bedside Glucose 234 mg/dL (74-106)
[2023-08-07 11:02] LABS: Anion Gap 12 (5-15); BUN 18 mg/dL (7-18); BUN/Creat Ratio 20.1 RATIO (10-20); Calcium,Total 7.3 mg/dL (8.5-10.1); Chloride 113 mmol/L (98-107); EST Glomerular Filtration Rate 79 mL/min (>60); Est Glom Filt Rate - Afr Amer 96 mL/min (>60); Estimated Creatinine Clearance 96.39 ml/min; Glucose 263 mg/dL (74-106); Sodium Level 139 mmol/L (136-145)
[2023-08-07 11:41] LABS: Bedside Glucose 266 mg/dL (74-106)
[2023-08-07] MEDS: Pantoprazole Sodium 40 MG Tablet PO (12:10)
[2023-08-07 12:37] LABS: Bedside Glucose 269 mg/dL (74-106)
[2023-08-07 13:55] LABS: Bedside Glucose 251 mg/dL (74-106)
[2023-08-07 15:04] LABS: Bedside Glucose 201 mg/dL (74-106)
[2023-08-07 15:07] LABS: Anion Gap 3 (5-15); BUN 16 mg/dL (7-18); BUN/Creat Ratio 20.2 RATIO (10-20); Calcium,Total 7.5 mg/dL (8.5-10.1); Chloride 114 mmol/L (98-107); Creatinine, Serum 0.79 mg/dL (0.55-1.02); EST Glomerular Filtration Rate 91 mL/min (>60); Est Glom Filt Rate - Afr Amer 110 mL/min (>60); Estimated Creatinine Clearance 109.81 ml/min; Glucose 232 mg/dL (74-106); Potassium 3.8 mmol/L (3.5-5.1); Sodium Level 139 mmol/L (136-145)
--- NOTE | 2023-08-07 15:12 | PCM.PN.HOSP ---
Reason for Visit Reason for Visit: Diagnoses Type 1 diabetes mellitus with ketoacidosis without coma (08/07/23) Type 2 diabetes mellitus with ketoacidosis without coma (08/07/23) 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 (poly)neuropathy (08/07/23) Gastroparesis (08/07/23) Noninfective gastroenteritis and colitis, unspecified (08/07/23) Nausea with vomiting, unspecified (08/07/23) Subjective Subjective Patient admitted overnight for DKA. Seen at bedside this morning in the ICU. Patient was laying in bed comfortably, no acute distress. Patient appeared very fatigued, was falling asleep while answering most questions. Stated that she continued to feel somewhat nauseous this morning but improved from yesterday evening. She otherwise denies any acute pain or discomfort. Denies any fevers or chills. No other acute concerns. Objective Data Objective Data Vital Signs: Vital Signs Temp Pulse Resp BP Pulse Ox O2 Del Method 97.4 F L 101 H 21 H 85/39 L 97 Room Air 08/07/23 12:00 08/07/23 14:00 08/07/23 14:00 08/07/23 14:00 08/07/23 14:00 08/07/23 14:00 Oxygen Delivery Method Room Air Weight: 79.9 kg Body Mass Index (BMI) 25.9 Intake & Output: Intake and Output for Last 24 Hours 08/05/23 08/06/23 08/07/23 23:59 23:59 23:59 Intake Total 1000 / 1000 2235.44 / 2235.44 Balance 1000 / 1000 2235.44 / 2235.44 Lab / Micro Data 08/06/23 22:55 08/07/23 14:45 Labs: Laboratory Results - last 24 hr 08/06/23 00:18: Urine Color Yellow, Urine Clarity Clear, Urine pH 5.0, Ur Specific [place] 1.015, Urine Protein Negative, Urine Glucose (UA) 1000 H, Urine Ketones 150 A*, Urine Occult Blood 10 H, Urine Nitrite Negative, Urine Bilirubin Negative, Urine Urobilinogen Normal, Ur Leukocyte Esterase Negative, Urine RBC 0 SEEN, Urine WBC 0 SEEN, Ur Squamous Epith Cells 0-5 SEEN, Urine Bacteria 0 SEEN, Urine Mucus 0 SEEN 08/06/23 22:55: WBC 20.3 H, RBC 4.35, Hgb 12.6, Hct 40.5, MCV 93.1, MCH 29.0, MCHC 31.1 L D, RDW Std Deviation 45.1 H, RDW Coeff of Joyce 13.2, Plt Count 140 L, MPV 13.8 H, Immature Gran % (Auto) 2.700 H, Neut % (Auto) 92.7 H, Lymph % (Auto) 2.1 L, [place] % (Auto) 2.0, Eos % (Auto) 0.0, Baso % (Auto) 0.5, Absolute Neuts (auto) 18.8 H, Absolute Lymphs (auto) 0.42 L, Nucleated RBC % 0, Differential Comment SCANNED, Sodium 132 L, Potassium 4.8, Chloride 101, Carbon Dioxide 14.0 L, Anion Gap 17 H, BUN 19 H, Creatinine 1.18 H, Estim Creat Clear Calc 73.52, Est GFR (MDRD) Af Amer 70, Est GFR (MDRD) Non-Af 58 L, BUN/Creatinine Ratio 16.1, Glucose 548 H*, Lactic Acid 4.4 H*, Calcium 9.1, Magnesium 2.0, Acetone Level SMALL H 08/07/23 01:45: Sodium 136, Potassium 4.2, Chloride 107, Carbon Dioxide 12.0 L, Anion Gap 17 H, BUN 20 H, Creatinine 1.25 H, Estim Creat Clear Calc 69.40, Est GFR (MDRD) Af Amer 65, Est GFR (MDRD) Non-Af 54 L, BUN/Creatinine Ratio 16.0, Glucose 425 H, Hemoglobin A1c 7.0 H, Calcium 7.6 L, Magnesium 1.8 08/07/23 01:46: POC Glucose 413 H 08/07/23 03:08: POC Glucose 362 H 08/07/23 04:05: POC Glucose 343 H 08/07/23 05:15: POC Glucose 362 H 08/07/23 05:55: Sodium 137, Potassium 4.1, Chloride 108 H, Carbon Dioxide 14.0 L, Anion Gap 15, BUN 20 H, Creatinine 1.12 H, Estim Creat Clear Calc 77.45, Est GFR (MDRD) Af Amer 74, Est GFR (MDRD) Non-Af 61, BUN/Creatinine Ratio 17.9, Glucose 374 H, Lactic Acid 2.2 H*, Calcium 7.8 L, Acetone Level MODERATE H 08/07/23 06:04: POC Glucose 333 H 08/07/23 07:00: POC Glucose 331 H 08/07/23 08:07: POC Glucose 336 H 08/07/23 09:11: POC Glucose 252 H 08/07/23 10:11: POC Glucose 234 H 08/07/23 10:15: Sodium 139, Potassium 4.0, Chloride 113 H, Carbon Dioxide 14.0 L, Anion Gap 12, BUN 18, Creatinine 0.90, Estim Creat Clear Calc 96.39, Est GFR (MDRD) Af Amer 96, Est GFR (MDRD) Non-Af 79, BUN/Creatinine Ratio 20.1 H, Glucose 263 H, Calcium 7.3 L 08/07/23 11:19: POC Glucose 266 H 08/07/23 12:09: POC Glucose 269 H 08/07/23 13:17: POC Glucose 251 H 08/07/23 14:40: POC Glucose 201 H 08/07/23 14:45: Sodium 139, Potassium 3.8, Chloride 114 H, Carbon Dioxide 22.0, Anion Gap 3 L, BUN 16, Creatinine 0.79, Estim Creat Clear Calc 109.81, Est GFR (MDRD) Af Amer 110, Est GFR (MDRD) Non-Af 91, BUN/Creatinine Ratio 20.2 H, Glucose 232 H, Calcium 7.5 L Micro: Microbiology 08/07/23 03:55 Mucosa - Nasopharyngeal Respiratory Panel (PCR) - Final ABG Data ABG results: ABG 08/06/23 08/07/23 23:04 06:05 Specimen Type ISABELLE ISABELLE Sample Site Not entered Not entered O2 % 21.0 VBG pH 7.34 7.24 L VBG pO2 58 H 52 H VBG HCO3 12 L 12 L VBG Total CO2 13 L 13 L VBG O2 Sat (Calc) 89 H 81 H VBG Base Excess -14 L -16 L POC Mix VBG pCO2 Pt Tmp 22.9 L 28.0 L O2 Delivery Device Room Air Not entered Physical Exam Const alert, no apparent distress and average body habitus Constitutional Narrative: Alert but fatigued appearing, laying comfortably in bed, no acute distress. General Appearance: cooperative and comfortable HEENT normocephalic, head/scalp atraumatic, hearing grossly normal bilaterally, nasal mucous membranes and turbinates normal and moist oral mucous membranes Eyes PERRL, EOMs intact bilaterally and conjunctivae normal Neck full ROM, no lymphadenopathy and supple Lymph Lymphatic: no lymphadenopathy noted Chest inspection of chest normal Resp normal respiratory effort, normal air movement, no use of accessory muscles and clear to auscultation bilaterally Cardio regular rate, regular rhythm, no murmurs and peripheral pulses 2+ throughout GI normal to inspection, nondistended, normoactive bowel sounds, soft to palpation, non-tender and non-distended Back/Spine normal ROM Extremity normal to inspection, full ROM and no pedal edema Skin no rashes or lesions noted Neuro moves all extremities and no focal motor deficits Speech: speech normal Psych Mood & Affect: anxious Assessment & Plan Assessment/Plan (1) DKA (diabetic ketoacidoses): QUALIFIERS: Diabetes mellitus complication detail: without coma Diabetes mellitus type: type 1 Qualified Code(s): E10.10 - Type 1 diabetes mellitus with ketoacidosis without coma PLAN: Plan Patient is a 28-year-old female who presented to [facility] ED on 08/06/2023 with nausea/vomiting and abdominal pain. 1. DKA, resolved; history of type 1 diabetes mellitus on insulin pump, with history of diabetic gastroparesis DKA on presentation secondary to insulin blood malfunction as noted by patient versus insulin nonadherence, with enterocolitis as noted below likely contributing. BG 548, lactic acid 4.4, positive serum acetone with anion gap metabolic acidosis on admission. Placed in ICU on admission. consumer educator evaluated on 08/07, patient reported no needs at this time. ? Anion gap closed this afternoon, bicarb 22, patient with minimal nausea/vomiting and wanting to eat. Transitioned off insulin drip to Lantus 15 units at night, Humalog 5 units 3 times daily AC plus high?medium sliding scale, will adjust as needed. Will give one-time dose of NPH 7 units this afternoon to transition to long-acting insulin this evening. Repeat BMP tonight and tomorrow morning. Patient will likely need to be discharged on Lantus plus Humalog injectable insulin to bridge her to her next endocrinology appointment, where insulin pump can be further inspected. 2. Enterocolitis CT abdomen pelvis on admit showed fluid-filled mildly thickened loops of small bowel and proximal colon consistent with enterocolitis. WBC count 20 on admit. ? Continue IV Flagyl for now. Stool studies pending. Trend daily CBC. Chronic medical conditions: ? Borderline personality disorder, PTSD: Stable. Not on home medications. ? Marfan syndrome, with history of aortic root repair and previous eye surgery ? History of renal calculi ? Tobacco abuse: Patient refused nicotine replacement therapy. Encouraged cessation. ? History of cannabis use, with medical marijuana card DVT prophylaxis: Lovenox CODE STATUS: Full code, verified Expected disposition: Home, 1 to 2 days Total clinical time spent by myself addressing the patient's medical issues, reviewing all the data, and collaborating with patient's care team: 35 minutes. Charges/Coding Visit Charges Inpatient E&M: 98658 Subs Hosp L2
--- NOTE | 2023-08-07 15:45 | CASEMGMT ---
STIVEN SMILEY Assessment: Face to Face with pt for initial transition planning/care coordination assessment. STIVEN SMILEY introduced self and role at [facility], pt voices understanding and consents to assessment. Pt is A&O x4 and answers all questions appropriately at this time. Pt lying in bed in no distress. Care providers, pharmacy, and demographics verified/updated. Admitting Dx: DKA, enterolitis on CT PCP:Aurea Perez, pt is interested in a new local provider. Specialists:Pt sees the following specialists at [facility]: vocational nurse, electrocardiologist, cardio, opthamologist, feed grinder and GI Preferred Pharmacy: [facility] [place] Insurance: My Care [facility], [facility] Prescription Benefit: yes LNOK: No contact listed and pt declines to list a contact Living Arrangements: Pt lives at [facility]. She states she is working with [employer] on housing and is on the top of the list for [employer]. Pt reports being I in ADL's and denies concerns at home. Transportation: Pt does not have a license to drive. DME:BGM with sufficient supply of strips and lancets, insulin pump with sufficient supply of insulin. Pt states her insulin pump was stating it was occluded and that is what brought her here. Her pump is by [employer]. HHC/SNF: Hx of [facility] when and has been to a SNF in [place] in the past. Pt states no concerns with going home ([facility]) at time of dc. Pt states no further concerns/needs. CM to follow. Advised pt to ask CM if any further question/concerns/needs arise, voices understanding. Pt Goal: Home Plan: Home
[2023-08-07 16:21] LABS: Bedside Glucose 200 mg/dL (74-106)
[2023-08-07] MEDS: Insulin NPH Human 100 UNITS/ML PEN 7 UNITS SC (17:27)
[2023-08-07 17:39] LABS: Bedside Glucose 195 mg/dL (74-106)
[2023-08-07 21:52] LABS: Bedside Glucose 344 mg/dL (74-106)
[2023-08-07] MEDS: Insulin Lispro 100 UNIT/ML INSULN.PEN SC (21:58)
[2023-08-07] MEDS: Insulin Glargine-YFGN 100 UNIT/ML Pen 25 UNIT SC (21:59)
[2023-08-07 23:09] LABS: Anion Gap 9 (5-15); BUN 12 mg/dL (7-18); Calcium,Total 6.4 mg/dL (8.5-10.1); Chloride 117 mmol/L (98-107); Creatinine, Serum 0.71 mg/dL (0.55-1.02); EST Glomerular Filtration Rate 104 mL/min (>60); Est Glom Filt Rate - Afr Amer 126 mL/min (>60); Estimated Creatinine Clearance 122.18 ml/min; Glucose 311 mg/dL (74-106); Potassium 3.5 mmol/L (3.5-5.1); Sodium Level 142 mmol/L (136-145)
[2023-08-08] VITALS (23 sets, daily range): BP systolic 96–125; BP diastolic 49–76; PULSE 50–96; RESP 14–27; TEMP 36.3–37.1; O2SAT 92–100; BMI 26.6
[2023-08-08] MEDS: KCL 20MEQ in D5.45NS 20 MEQ/1,000 ML IV.SOLN. 150 MEQ IV ×2 (00:07→06:48)
[2023-08-08] MEDS: Insulin Lispro 100 UNIT in 0.9% Normal Saline (100mL Bag) 99 ML 8 UNIT CONT INF (00:08)
[2023-08-08 01:23] LABS: Bedside Glucose 217 mg/dL (74-106)
[2023-08-08 02:31] LABS: Bedside Glucose 186 mg/dL (74-106)
[2023-08-08] MEDS: 0.9% Saline Lock 10 ML Syringe IV ×2 (03:19→06:15)
[2023-08-08] MEDS: proCHLORPERazine 10 MG/2 ML Vial 5 MG IV ×4 (03:19→21:58)
[2023-08-08 03:34] LABS: Bedside Glucose 143 mg/dL (74-106)
[2023-08-08 04:12] LABS: Hemoglobin 10.2 g/dL (12.0-15.0); Mean Corp Hgb Conc 31.9 g/dL (32-36); Mean Corpuscular Hgb 28.7 pg (27.0-32.0); Mean Corpuscular Volume 90.1 fL (81-99); Mean Platelet Vol. 11.4 fl (6.2-12.0); Platelet Count 127 K/mm3 (150-450); RBC Distribution Width CV 13.5 % (11.6-14.6); RBC Distribution Width SD 45.2 fl (35.1-43.9); Red Blood Count 3.55 M/mm3 (4.2-5.4); White Blood Count 17.5 K/mm3 (4.4-11.0)
[2023-08-08 04:39] LABS: Anion Gap 4 (5-15); BUN 13 mg/dL (7-18); BUN/Creat Ratio 17.2 RATIO (10-20); Calcium,Total 7.4 mg/dL (8.5-10.1); Chloride 114 mmol/L (98-107); Creatinine, Serum 0.76 mg/dL (0.55-1.02); EST Glomerular Filtration Rate 96 mL/min (>60); Est Glom Filt Rate - Afr Amer 116 mL/min (>60); Estimated Creatinine Clearance 114.14 ml/min; Glucose 122 mg/dL (74-106); Potassium 3.5 mmol/L (3.5-5.1); Sodium Level 141 mmol/L (136-145)
[2023-08-08] MEDS: metroNIDAZOLE 500 MG/100 ML BAG 100 MG IV ×3 (06:03→21:58)
[2023-08-08] MEDS: 0.9 % NaCl (Sterile) Posiflush 10 mL IV ×3 (06:06→20:42)
[2023-08-08] MEDS: Dextrose 50%-Water 25 GM/50 ML DISP.SYRIN IV (06:15)
[2023-08-08 06:18] LABS: Bedside Glucose 114 mg/dL (74-106)
[2023-08-08 06:18] LABS: Bedside Glucose 94 mg/dL (74-106)
[2023-08-08 07:01] LABS: Bedside Glucose 250 mg/dL (74-106)
[2023-08-08 07:11] LABS: Bedside Glucose 78 mg/dL (74-106)
[2023-08-08 07:11] LABS: Bedside Glucose 62 mg/dL (74-106)
[2023-08-08] MEDS: Pantoprazole Sodium 40 MG Tablet PO (09:36)
[2023-08-08] MEDS: Enoxaparin 40 MG/0.4 ML Syringe SC (09:36)
[2023-08-08] MEDS: Ketorolac 15 MG/ML Vial IV ×2 (09:51→20:42)
[2023-08-08 10:15] LABS: Bedside Glucose 162 mg/dL (74-106)
--- NOTE | 2023-08-08 10:42 | CASEMGMT ---
Discharge Planning A list of PCP providers including quality and resource use data and consistent with the patient's preferred geographic region, medical needs, and insurance network was created from the [facility] website.? This list was provided to the RN BALJIT. Marlene Valle, Discharge Planning Asst.
[2023-08-08 12:21] LABS: Bedside Glucose 135 mg/dL (74-106)
--- NOTE | 2023-08-08 14:55 | CASEMGMT ---
STIVEN SMILEY NOTE: RN CM to room. Pt provided w/list of local PCP's in network w/her insurance that was prepared by telecommunications network planner, Marlene. Discussed CCN w/pt. She declines wanting referral, stating she feels she has a good understanding of DM and feels she has been managing well. She states she had changed the site for the insulin pump prior to coming to the hospital, but was already too sick by the time she figured out that it was occluded. She states the insulin pump was re-applied today and is running/functioning well. She states she has all supplies needed and denies having any further discharge planning needs or concerns. Ramos WATSONN STIVEN SMILEY
--- NOTE | 2023-08-08 15:30 | PN.HOSP_ITS ---
Reason for Visit Reason for Visit: Diagnoses Type 1 diabetes mellitus with ketoacidosis without coma (08/07/23) Type 2 diabetes mellitus with ketoacidosis without coma (08/07/23) 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 (poly)neuropathy (08/07/23) Gastroparesis (08/07/23) Noninfective gastroenteritis and colitis, unspecified (08/07/23) Nausea with vomiting, unspecified (08/07/23) Subjective Subjective Patient was transitioned off the insulin drip before dinnertime yesterday evening. Unfortunately, overnight patient had elevated blood sugars and anion gap reopened, so she was placed on insulin drip from around 12 AM to 7 AM. Repeat BMP showed that the gap closed. Was transitioned off the insulin drip again around 8 AM. Patient seen at bedside this morning. Laying comfortably bed and appears more awake and alert this morning. Patient stated she was glad she went back on the insulin drip overnight, since she was starting to feel more nauseous at that time. She feels improved this morning. Patient would like to go back on her insulin pump today if able. She changed her pump site since coming to the hospital and feels that this should work fine for her. She otherwise denies any acute concerns today. Objective Data Objective Data Vital Signs: Vital Signs Temp Pulse Resp BP Pulse Ox O2 Del Method 97.5 F L 78 14 105/65 92 Room Air 08/08/23 08:00 08/08/23 10:00 08/08/23 10:00 08/08/23 10:00 08/08/23 10:00 08/08/23 10:00 Oxygen Delivery Method Room Air Weight: 82 kg Body Mass Index (BMI) 26.6 Intake & Output: Intake and Output for Last 24 Hours 08/06/23 08/07/23 08/08/23 23:59 23:59 23:59 Intake Total 1000 / 1000 3442.49 / 3442.49 1625.44 / 1625.44 Output Total 200 / 200 Balance 1000 / 1000 3242.49 / 3242.49 1625.44 / 1625.44 Lab / Micro Data 08/08/23 04:05 08/08/23 04:05 Labs: Laboratory Results - last 24 hr 08/07/23 15:55: POC Glucose 200 H 08/07/23 17:22: POC Glucose 195 H 08/07/23 21:33: POC Glucose 344 H 08/07/23 21:50: Sodium 142, Potassium 3.5, Chloride 117 H, Carbon Dioxide 16.0 L , Anion Gap 9, BUN 12, Creatinine 0.71, Estim Creat Clear Calc 122.18, Est GFR (MDRD) Af Amer 126, Est GFR (MDRD) Non-Af 104, BUN/Creatinine Ratio 17.0, Glucose 311 H, Calcium 6.4 L* 08/08/23 00:06: POC Glucose 250 H 08/08/23 01:02: POC Glucose 217 H 08/08/23 02:13: POC Glucose 186 H 08/08/23 03:14: POC Glucose 143 H 08/08/23 04:02: POC Glucose 114 H 08/08/23 04:05: WBC 17.5 H, RBC 3.55 L, Hgb 10.2 L, Hct 32.0 L, MCV 90.1, MCH 28.7, MCHC 31.9 L, RDW Std Deviation 45.2 H, RDW Coeff of Joyce 13.5, Plt Count 127 L, MPV 11.4, Sodium 141, Potassium 3.5, Chloride 114 H, Carbon Dioxide 23.0, Anion Gap 4 L, BUN 13, Creatinine 0.76, Estim Creat Clear Calc 114.14, Est GFR (MDRD) Af Amer 116, Est GFR (MDRD) Non-Af 96, BUN/Creatinine Ratio 17.2, Glucose 122 H, Calcium 7.4 L 08/08/23 05:04: POC Glucose 94 08/08/23 06:03: POC Glucose 62 L 08/08/23 06:52: POC Glucose 78 08/08/23 09:54: POC Glucose 162 H 08/08/23 12:03: POC Glucose 135 H Micro: Microbiology 08/07/23 18:10 Stool Stool Lactoferrin - Final 08/07/23 18:10 Stool Enteric Bacteriology - Final 08/07/23 18:10 Stool C. difficile DNA Amplification - Final 08/07/23 03:55 Mucosa - Nasopharyngeal Respiratory Panel (PCR) - Final Physical Exam Const alert, no apparent distress and average body habitus Constitutional Narrative: More awake and alert this morning, laying comfortably in bed, no acute distress. General Appearance: cooperative and comfortable HEENT normocephalic, head/scalp atraumatic, hearing grossly normal bilaterally, nasal mucous membranes and turbinates normal and moist oral mucous membranes Eyes PERRL, EOMs intact bilaterally and conjunctivae normal Neck full ROM, no lymphadenopathy and supple Lymph Lymphatic: no lymphadenopathy noted Chest inspection of chest normal Resp normal respiratory effort, normal air movement, no use of accessory muscles and clear to auscultation bilaterally Cardio regular rate, regular rhythm, no murmurs and peripheral pulses 2+ throughout GI normal to inspection, nondistended, normoactive bowel sounds, soft to palpation, non-tender and non-distended Back/Spine normal ROM Extremity normal to inspection, full ROM and no pedal edema Skin no rashes or lesions noted Neuro moves all extremities and no focal motor deficits Speech: speech normal Psych Mood & Affect: anxious Assessment & Plan Assessment/Plan (1) DKA (diabetic ketoacidoses): QUALIFIERS: Diabetes mellitus type: type 1 Diabetes mellitus complication detail: without coma Qualified Code(s): E10.10 - Type 1 diabetes mellitus with ketoacidosis without coma PLAN: Plan Patient is a 28-year-old female who presented to [facility] ED on 08/06/2023 with nausea/vomiting and abdominal pain. 1. DKA, resolved; history of type 1 diabetes mellitus on insulin pump, with history of diabetic gastroparesis DKA on presentation secondary to insulin blood malfunction as noted by patient versus insulin nonadherence, with enterocolitis as noted below likely contributing. BG 548, lactic acid 4.4, positive serum acetone with anion gap metabolic acidosis on admission. Placed in ICU on admission. certified diabetes educator evaluated on 08/07, patient reported no needs at this time. Patient transitioned off insulin drip on evening of 08/07, unfortunately had increased blood sugars with reopening of gap that evening, required insulin drip again in wanigan clerk of 08/08. Gap closed on morning of 08/08. ? Discussed with patient, will allow patient to start her insulin pump today and monitor her blood sugars closely. If sugars remain stable through tomorrow, will likely be okay for discharge home tomorrow. Patient follows with an outside equine internship, recommended close follow-up appointment with her endo crinologist on discharge. Monitor BMP tomorrow morning. 2. Enterocolitis, improving CT abdomen pelvis on admit showed fluid-filled mildly thickened loops of small bowel and proximal colon consistent with enterocolitis. WBC count 20 on admit, improving. Stool panel, C. difficile, lactoferrin negative. Ova and parasites pending. ? Continue IV Flagyl for now, will likely plan to discharge patient on p.o. Flagyl for 7-day course total. Chronic medical conditions: ? Borderline personality disorder, PTSD: Stable. Not on home medications. ? Marfan syndrome, with history of aortic root repair and previous eye surgery ? History of renal calculi ? Tobacco abuse: Patient refused nicotine replacement therapy. Encouraged cessation. ? History of cannabis use, with medical marijuana card DVT prophylaxis: Lovenox CODE STATUS: Full code, verified Expected disposition: Home, 1 to 2 days Total clinical time spent by myself addressing the patient's medical issues, reviewing all the data, and collaborating with patient's care team: 35 minutes. Charges/Coding Visit Charges Inpatient E&M: 96337 Subs Hosp L2
[2023-08-08 15:41] LABS: Bedside Glucose 281 mg/dL (74-106)
[2023-08-08 17:36] LABS: Bedside Glucose 345 mg/dL (74-106)
[2023-08-08 19:06] LABS: Bedside Glucose 341 mg/dL (74-106)
[2023-08-08 21:03] LABS: Bedside Glucose 325 mg/dL (74-106)
--- NOTE | 2023-08-08 21:18 | PCM.HOSP.N ---
Hospitalist Note BS remain in 300 range. Currently on her own insulin pump and dosing herself with her own home ISS. From report with RN it appears 6.8 u insulin administered for BS 325 level. She does report mild nausea currently. Will obtain BMP to be cautious.
[2023-08-08 22:10] LABS: Bedside Glucose 333 mg/dL (74-106)
[2023-08-08 22:28] LABS: Anion Gap 11 (5-15); BUN 10 mg/dL (7-18); BUN/Creat Ratio 12.6 RATIO (10-20); Chloride 106 mmol/L (98-107); EST Glomerular Filtration Rate 91 mL/min (>60); Est Glom Filt Rate - Afr Amer 110 mL/min (>60); Estimated Creatinine Clearance 108.44 ml/min; Glucose 376 mg/dL (74-106); Potassium 4.5 mmol/L (3.5-5.1); Sodium Level 136 mmol/L (136-145)
[2023-08-08] MEDS: Insulin Basal Pump SC (23:46)
[2023-08-09] VITALS (11 sets, daily range): BP systolic 100–119; BP diastolic 53–77; PULSE 47–100; RESP 12–24; TEMP 36.6–36.9; O2SAT 96–100; BMI 26.1
[2023-08-09 00:17] LABS: Bedside Glucose 302 mg/dL (74-106)
[2023-08-09] MEDS: 0.9 % NaCl (Sterile) Posiflush 10 mL IV ×4 (03:46→23:17)
[2023-08-09] MEDS: proCHLORPERazine 10 MG/2 ML Vial 5 MG IV ×4 (03:46→23:14)
[2023-08-09 03:49] LABS: Hematocrit 36.5 % (37-47); Hemoglobin 11.6 g/dL (12.0-15.0); Mean Corp Hgb Conc 31.8 g/dL (32-36); Mean Corpuscular Volume 91.3 fL (81-99); Mean Platelet Vol. 11.7 fl (6.2-12.0); Platelet Count 110 K/mm3 (150-450); RBC Distribution Width CV 13.1 % (11.6-14.6); RBC Distribution Width SD 43.4 fl (35.1-43.9); White Blood Count 9.9 K/mm3 (4.4-11.0)
[2023-08-09 03:59] LABS: Bedside Glucose 272 mg/dL (74-106)
[2023-08-09 04:04] LABS: Anion Gap 12 (5-15); BUN 10 mg/dL (7-18); BUN/Creat Ratio 12.7 RATIO (10-20); Calcium,Total 7.8 mg/dL (8.5-10.1); Chloride 105 mmol/L (98-107); Creatinine, Serum 0.79 mg/dL (0.55-1.02); EST Glomerular Filtration Rate 92 mL/min (>60); Est Glom Filt Rate - Afr Amer 111 mL/min (>60); Estimated Creatinine Clearance 109.81 ml/min; Glucose 311 mg/dL (74-106); Potassium 4.4 mmol/L (3.5-5.1); Sodium Level 135 mmol/L (136-145)
[2023-08-09] MEDS: metroNIDAZOLE 500 MG/100 ML BAG 100 MG IV ×3 (05:44→21:31)
[2023-08-09] MEDS: Pantoprazole Sodium 40 MG Tablet PO (07:46)
[2023-08-09] MEDS: Enoxaparin 40 MG/0.4 ML Syringe SC (07:46)
[2023-08-09 08:01] LABS: Bedside Glucose 311 mg/dL (74-106)
[2023-08-09] MEDS: Insulin Lispro 100 UNIT/ML INSULN.PEN 10 UNIT SC ×3 (08:08→18:17)
[2023-08-09 11:17] LABS: Bedside Glucose 192 mg/dL (74-106)
[2023-08-09 16:32] LABS: Bedside Glucose 129 mg/dL (74-106)
--- NOTE | 2023-08-09 17:24 | PN.HOSP_ITS ---
Reason for Visit Reason for Visit: Diagnoses Type 1 diabetes mellitus with ketoacidosis without coma (08/07/23) Type 2 diabetes mellitus with ketoacidosis without coma (08/07/23) 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 (poly)neuropathy (08/07/23) Gastroparesis (08/07/23) Noninfective gastroenteritis and colitis, unspecified (08/07/23) Nausea with vomiting, unspecified (08/07/23) Subjective Subjective Patient transferred to the PCU this morning given her medical stability. Seen at bedside in the PCU midmorning. Patient unfortunately stated that her insulin pump again malfunctioned overnight. On further discussion, patient has very wary about going home on subcutaneous insulin as she tells me she is a brittle diabetic and does not have good blood sugar control without her insulin pump. States she had nausea and abdominal pain overnight with high blood sugars which is now resolved this morning. No other acute concerns this morning. Objective Data Objective Data Vital Signs: Vital Signs Temp Pulse Resp BP Pulse Ox O2 Del Method 98.4 F 62 12 119/71 98 Room Air 08/09/23 14:32 08/09/23 14:32 08/09/23 14:32 08/09/23 14:32 08/09/23 14:32 08/09/23 14:32 Oxygen Delivery Method Room Air Weight: 80.3 kg Body Mass Index (BMI) 26.1 Intake & Output: Intake and Output for Last 24 Hours 08/07/23 08/08/23 08/09/23 23:59 23:59 23:59 Intake Total 3442.49 / 3442.49 2125.44 / 2125.44 300 / 300 Output Total 200 / 200 Balance 3242.49 / 3242.49 2125.44 / 2125.44 300 / 300 Lab / Micro Data 08/09/23 03:39 08/09/23 03:39 Labs: Laboratory Results - last 24 hr 08/08/23 17:18: POC Glucose 345 H 08/08/23 18:48: POC Glucose 341 H 08/08/23 20:31: POC Glucose 325 H 08/08/23 21:49: POC Glucose 333 H 08/08/23 21:53: Sodium 136, Potassium 4.5, Chloride 106, Carbon Dioxide 19.0 L, Anion Gap 11, BUN 10, Creatinine 0.80, Estim Creat Clear Calc 108.44, Est GFR (MDRD) Af Amer 110, Est GFR (MDRD) Non-Af 91, BUN/Creatinine Ratio 12.6, Glucose 376 H, Calcium 8.0 L 08/08/23 23:58: POC Glucose 302 H 08/09/23 03:34: POC Glucose 272 H 08/09/23 03:39: WBC 9.9, RBC 4.00 L, Hgb 11.6 L, Hct 36.5 L, MCV 91.3, MCH 29.0, MCHC 31.8 L, RDW Std Deviation 43.4, RDW Coeff of Joyce 13.1, Plt Count 110 L, MPV 11.7, Sodium 135 L, Potassium 4.4, Chloride 105, Carbon Dioxide 18.0 L, Anion Gap 12, BUN 10, Creatinine 0.79, Estim Creat Clear Calc 109.81, Est GFR (MDRD) Af Amer 111, Est GFR (MDRD) Non-Af 92, BUN/Creatinine Ratio 12.7, Glucose 311 H, Calcium 7.8 L 08/09/23 07:42: POC Glucose 311 H 08/09/23 10:59: POC Glucose 192 H 08/09/23 16:06: POC Glucose 129 H Micro: Microbiology 08/07/23 18:10 Stool Stool Lactoferrin - Final 08/07/23 18:10 Stool Enteric Bacteriology - Final 08/07/23 18:10 Stool C. difficile DNA Amplification - Final 08/07/23 03:55 Mucosa - Nasopharyngeal Respiratory Panel (PCR) - Final Physical Exam Const alert, no apparent distress and average body habitus Constitutional Narrative: Awake and alert this morning, sitting comfortably in bed, conversing normally, no acute distress. General Appearance: cooperative and comfortable HEENT normocephalic, head/scalp atraumatic, hearing grossly normal bilaterally, nasal mucous membranes and turbinates normal and moist oral mucous membranes Eyes PERRL, EOMs intact bilaterally and conjunctivae normal Neck full ROM, no lymphadenopathy and supple Lymph Lymphatic: no lymphadenopathy noted Chest inspection of chest normal Resp normal respiratory effort, normal air movement, no use of accessory muscles and clear to auscultation bilaterally Cardio regular rate, regular rhythm, no murmurs and peripheral pulses 2+ throughout GI normal to inspection, nondistended, normoactive bowel sounds, soft to palpation, non-tender and non-distended Back/Spine normal ROM Extremity normal to inspection, full ROM and no pedal edema Skin no rashes or lesions noted Neuro moves all extremities and no focal motor deficits Speech: speech normal Psych affect normal Mood & Affect: anxious Assessment & Plan Assessment/Plan (1) DKA (diabetic ketoacidoses): QUALIFIERS: Diabetes mellitus type: type 1 Diabetes mellitus complication detail: without coma Qualified Code(s): E10.10 - Type 1 diabetes mellitus with ketoacidosis without coma PLAN: Plan Patient is a 28-year-old female who presented to [facility] ED on 08/06/2023 with nausea/vomiting and abdominal pain. 1. DKA, resolved; history of type 1 diabetes mellitus on insulin pump, with history of diabetic gastroparesis DKA on presentation secondary to insulin blood malfunction as noted by patient versus insulin nonadherence, with enterocolitis as noted below likely contributing. BG 548, lactic acid 4.4, positive serum acetone with anion gap metabolic acidosis on admission. Placed in ICU on admission. parent educator evaluated on 08/07, patient reported no needs at this time. Patient transitioned off insulin drip on evening of 08/07, unfortunately had increased blood sugars with reopening of gap that evening, required insulin drip again in bacteriologist pharmaceutical of 08/08. Gap closed on morning of 08/08. Patient started using her insulin pump on 08/08, had stable blood sugars for about 8 to 10 hours but then unfortunately her pump malfunctioned again. ? Discussed with Dr. Martinez over the phone with endocrinology and with a [employer] rep over the phone. Suspect it is patient's plastic tubing of catheter and injection site that is pending and malfunctioning. [employer] is sending her new catheter supplies with a temporary steel tipped catheter to use while her previous insulin sites are healing, will be at her home tomorrow. Continue subcutaneous insulin today, with plan to discharge home tomorrow morning. 2. Enterocolitis, improving CT abdomen pelvis on admit showed fluid-filled mildly thickened loops of small bowel and proximal colon consistent with enterocolitis. WBC count 20 on admit, improving. Stool panel, C. difficile, lactoferrin negative. Ova and parasites pending. ? Continue IV Flagyl for now, will likely plan to discharge patient on p.o. Flagyl for 7-day course total. Chronic medical conditions: ? Borderline personality disorder, PTSD: Stable. Not on home medications. ? Marfan syndrome, with history of aortic root repair and previous eye surgery ? History of renal calculi ? Tobacco abuse: Patient refused nicotine replacement therapy. Encouraged cessation. ? History of cannabis use, with medical marijuana card DVT prophylaxis: Lovenox CODE STATUS: Full code, verified Expected disposition: Home, tomorrow Total clinical time spent by myself addressing the patient's medical issues, reviewing all the data, and collaborating with patient's care team: 35 minutes. Charges/Coding Visit Charges Inpatient E&M: 95357 Subs Hosp L2
[2023-08-09 17:35] LABS: Bedside Glucose 156 mg/dL (74-106)
[2023-08-09] MEDS: Insulin Glargine-YFGN 100 UNIT/ML Pen 30 UNIT SC (21:32)
[2023-08-09 21:57] LABS: Bedside Glucose 244 mg/dL (74-106)
[2023-08-10] MEDS: Ketorolac 15 MG/ML Vial IV (01:21)
[2023-08-10] MEDS: 0.9 % NaCl (Sterile) Posiflush 10 mL IV ×3 (01:24→16:08)
[2023-08-10 01:30] LABS: Bedside Glucose 233 mg/dL (74-106)
[2023-08-10 03:29] VITALS: BP 111/59; PULSE 70; RESP 14; TEMP 36.7; O2SAT 98
[2023-08-10 05:07] VITALS: BMI 25.9
[2023-08-10] MEDS: metroNIDAZOLE 500 MG/100 ML BAG 100 MG IV (06:16)
[2023-08-10] MEDS: Pantoprazole Sodium 40 MG Tablet PO (07:37)
[2023-08-10] MEDS: Enoxaparin 40 MG/0.4 ML Syringe SC (07:38)
[2023-08-10] MEDS: Insulin Lispro 100 UNIT/ML INSULN.PEN 10 UNIT SC ×2 (07:46→10:59)
[2023-08-10 07:56] LABS: Hematocrit 39.7 % (37-47); Mean Corp Hgb Conc 32.7 g/dL (32-36); Mean Corpuscular Hgb 28.9 pg (27.0-32.0); Mean Corpuscular Volume 88.2 fL (81-99); Mean Platelet Vol. 11.8 fl (6.2-12.0); Platelet Count 109 K/mm3 (150-450); RBC Distribution Width CV 12.9 % (11.6-14.6); White Blood Count 8.5 K/mm3 (4.4-11.0)
[2023-08-10 08:00] VITALS: BP 109/71; PULSE 65; RESP 15; TEMP 36.7; O2SAT 97
[2023-08-10 08:12] LABS: Bedside Glucose 204 mg/dL (74-106)
[2023-08-10 08:32] LABS: Anion Gap 10 (5-15); BUN 9 mg/dL (7-18); BUN/Creat Ratio 15.4 RATIO (10-20); Chloride 109 mmol/L (98-107); Creatinine, Serum 0.58 mg/dL (0.55-1.02); EST Glomerular Filtration Rate 129 mL/min (>60); Est Glom Filt Rate - Afr Amer 157 mL/min (>60); Estimated Creatinine Clearance 149.57 ml/min; Glucose 195 mg/dL (74-106); Potassium 3.7 mmol/L (3.5-5.1); Sodium Level 139 mmol/L (136-145)
[2023-08-10] MEDS: proCHLORPERazine 10 MG/2 ML Vial 5 MG IV (10:50)
[2023-08-10 11:18] LABS: Bedside Glucose 208 mg/dL (74-106)
--- NOTE | 2023-08-10 12:04 | DCINST_ITS ---
Discharge Instructions Diet Discharge Diet: Carb Control Diet Activity Discharge Activity: Return to Normal Activity Weight Bearing Status: Full weight bearing Follow Up Care Test Results: Test results from this visit will be discussed in further detail at your follow- up appointment, if applicable. Pending Tests Upon Discharge: None Discharge Plan Admission Admit Date/Time: 08/07/23 00:33 Attending Provider: Dangelo Encarnacion Primary Care Provider: Care Physician,No Primary Consulting Providers: Horacio Duvall Instructions Additional Instructions / Restrictions: Complete antibiotic course as noted below. Follow-up with your investigator internal affairs when able. Follow-up with your outpatient primary care provider as able. Discharge Orders/Prescriptions Prescriptions: New metronidazole 500 mg Tablet 500 mg PO Q8 4 Days Qty: 12 0RF Continued insulin lispro [Humalog U-100 Insulin] 100 unit/mL solution See Rx Instructions .ROUTE .COMPLEX Patient Comments: use IN THE INSULIN PUMP FOR A TOTAL DAILY DOSE OF 100 UNITS Rx Instructions: 100U VIA PUMP DAILY; Referrals / Follow Up: Care Physician,No Primary [Primary Care Provider] - Disposition Disposition (needs filled in before D/C Order can be placed): Home, Self Care
--- NOTE | 2023-08-10 12:06 | DS.PCM_ITS ---
Providers Date of Admission: 08/07/23 Date of Discharge: 08/10/23 Primary Care Physician: No Primary Care Phys Reason For Visit: DKA, ENTEROLITIS ON CT Diagnosis Discharge Diagnosis (1) DKA (diabetic ketoacidoses): Status: Acute Code(s): E11.10 - Type 2 diabetes mellitus with ketoacidosis without coma Qualifiers: Diabetes mellitus complication detail: without coma Diabetes mellitus type: type 1 Qualified Code(s): E10.10 - Type 1 diabetes mellitus with ketoacidosis without coma Medications at Discharge Home Medications insulin lispro 100 unit/mL subcutaneous solution (Humalog U-100 Insulin) See Rx Instructions .Route .COMPLEX 04/27/23 insulin glargine 100 unit/mL (3 mL) subcutaneous pen (Lantus Solostar U-100 Insulin) 30 unit (0.3 mL) subcut BID #3 mL 08/10/23 insulin lispro 100 unit/mL subcutaneous pen (Humalog KwikPen (U-100) Insulin) 10 unit (0.1 mL) subcut TID #3 mL 08/10/23 metronidazole 500 mg tablet 500 mg PO Q8 4 days #12 tabs 08/10/23 pen needle, diabetic 29 gauge x 1/2 (Ultra-Thin II Insulin Pen [place]) #100 ea 08/10/23 Hospital Course Operations None Procedures EKG and - (CT abdomen pelvis ) Summary of Care Provided Minutes Spent on Discharge: 35 Hospital Course: Patient is a 28-year-old female who presented to [facility] ED on 08/06/2023 with nausea/vomiting and abdominal pain. Hospital course as noted below. Patient was ultimately stable for discharge home on 08/10. 1. DKA, resolved; history of type 1 diabetes mellitus on insulin pump, with history of diabetic gastroparesis DKA on presentation secondary to insulin blood malfunction as noted by patient versus insulin nonadherence, with enterocolitis as noted below likely contributing. BG 548, lactic acid 4.4, positive serum acetone with anion gap metabolic acidosis on admission. Placed in ICU on admission. coding educator evaluated on 08/07, patient reported no needs at this time. Patient transitioned off insulin drip on evening of 08/07, unfortunately had increased blood sugars with reopening of gap that evening, required insulin drip again in auto body shop manager of 08/08. Gap closed on morning of 08/08. Patient started using her insulin pump on 08/08, had stable blood sugars for about 8 to 10 hours but then unfortunately her pump malfunctioned again. ? Discussed with Dr. Matrinez with endocrinology and [employer] rep over the phone on 08/09, who suspected that patient's plastic tubing of catheter injection site was bending and malfunctioning. [employer] sent new catheter supplies to her home prior to discharge. Patient was discharged with short courses of Lantus and Humalog in case new supplies did not arrive in time for her to use right after arriving at home. Recommended close outpatient follow-up with her community program assistant. 2. Enterocolitis, improving CT abdomen pelvis on admit showed fluid-filled mildly thickened loops of small bowel and proximal colon consistent with enterocolitis. WBC count 20 on admit, improving. Stool panel, C. difficile, lactoferrin negative. Ova and parasites pending on discharge. ? Cover with IV Flagyl while inpatient. WBC count improved, patient appeared to have subjective improvement of abdominal pain and discomfort. Discharged on p.o. Flagyl to complete 7-day course. Chronic medical conditions managed during hospitalization: ? Borderline personality disorder, PTSD: Stable. Not on home medications. ? Marfan syndrome, with history of aortic root repair and previous eye surgery ? History of renal calculi ? Tobacco abuse: Patient refused nicotine replacement therapy. Encouraged cessation. ? History of cannabis use, with medical marijuana card Total clinical time spent by myself addressing the patient's discharge needs: 35 minutes. Physical Exam Const alert, no apparent distress and average body habitus Constitutional Narrative: Awake and alert this morning, sitting comfortably in bed, conversing normally, no acute distress. General Appearance: cooperative and comfortable HEENT normocephalic, head/scalp atraumatic, hearing grossly normal bilaterally, nasal mucous membranes and turbinates normal and moist oral mucous membranes Eyes PERRL, EOMs intact bilaterally and conjunctivae normal Neck full ROM, no lymphadenopathy and supple Lymph Lymphatic: no lymphadenopathy noted Chest inspection of chest normal Resp normal respiratory effort, normal air movement, no use of accessory muscles and clear to auscultation bilaterally Cardio regular rate, regular rhythm, no murmurs and peripheral pulses 2+ throughout GI normal to inspection, nondistended, normoactive bowel sounds, soft to palpation, non-tender and non-distended Back/Spine normal ROM Extremity normal to inspection, full ROM and no pedal edema Skin no rashes or lesions noted Neuro moves all extremities and no focal motor deficits Speech: speech normal Psych affect normal Mood & Affect: anxious Weight / BMI Weight Weight: 79.9 kg Body Mass Index (BMI) 25.9 ABG / Lab / Microbiology Data 08/10/23 07:40 08/10/23 07:40 Laboratory: Laboratory Results - last 24 hr 08/09/23 16:06: POC Glucose 129 H 08/09/23 17:14: POC Glucose 156 H 08/09/23 21:29: POC Glucose 244 H 08/10/23 01:12: POC Glucose 233 H 08/10/23 07:40: WBC 8.5, RBC 4.50, Hgb 13.0, Hct 39.7, MCV 88.2, MCH 28.9, MCHC 32.7, RDW Std Deviation 42.0, RDW Coeff of Joyce 12.9, Plt Count 109 L, MPV 11.8, Sodium 139, Potassium 3.7, Chloride 109 H, Carbon Dioxide 20.0 L, Anion Gap 10, BUN 9, Creatinine 0.58, Estim Creat Clear Calc 149.57, Est GFR (MDRD) Af Amer 157, Est GFR (MDRD) Non-Af 129, BUN/Creatinine Ratio 15.4, Glucose 195 H, Calcium 8.0 L 08/10/23 07:41: POC Glucose 204 H 08/10/23 10:58: POC Glucose 208 H Microbiology: Microbiology 08/07/23 18:10 Stool Stool Lactoferrin - Final 08/07/23 18:10 Stool Enteric Bacteriology - Final 08/07/23 18:10 Stool C. difficile DNA Amplification - Final 08/07/23 03:55 Mucosa - Nasopharyngeal Respiratory Panel (PCR) - Final D/C Instructions Discharge Diet: Carb Control Diet Weight Bearing Status: Full weight bearing Pending Tests Upon Discharge: None Meaningful Use Info Meaningful Use Diagnoses (Choose all that apply): None applicable Discharge Plan Admission Admit Date/Time: 08/07/23 00:33 Primary Reason for Your Visit: DKA Attending Provider: Dangelo Encarnacion Primary Care Provider: Care Physician,No Primary Consulting Providers: Horacio Duvall Instructions Additional Instructions / Restrictions: Complete antibiotic course as noted below. Follow-up with your community program assistant when able. Follow-up with your outpatient primary care provider as able. Discharge Orders/Prescriptions Prescriptions: New metronidazole 500 mg Tablet 500 mg PO Q8 4 Days Qty: 12 0RF insulin glargine [Lantus Solostar U-100 Insulin] 100 unit/mL (3 mL) insulin pen 30 unit subcut BID Qty: 3 0RF insulin lispro [Humalog KwikPen Insulin] 100 unit/mL insulin pen 10 unit subcut TID Qty: 3 0RF (DME) pen needle, diabetic [Ultra-Thin II Ins Pen [place]] 29 gauge x 1/2 ne edle See Rx Instructions .Route Qty: 100 0RF Rx Instructions: As directed Continued insulin lispro [Humalog U-100 Insulin] 100 unit/mL solution See Rx Instructions .ROUTE .COMPLEX Patient Comments: use IN THE INSULIN PUMP FOR A TOTAL DAILY DOSE OF 100 UNITS Rx Instructions: 100U VIA PUMP DAILY; Referrals / Follow Up: Care Physician,No Primary [Primary Care Provider] - Disposition Disposition (needs filled in before D/C Order can be placed): Home, Self Care Charges/Coding Visit Charges Inpatient E&M: 74349 Disch Hosp >30min
--- NOTE | 2023-08-10 12:30 | CASEMGMT ---
Patient has order for dicharge. RN CM in to discuss needs at discharge. Patient denies needs at discharge. Patient had no further questions or concerns.
[2023-08-10] MEDS: metroNIDAZOLE 500 MG Tablet PO (16:02)
== END 2023-08-10 16:20 | disposition home or self-care (01) | DRG 919 ==
LOC: ED 22:00 → ICU 08-07 00:37 → PCU 08-09 14:08
PROVIDERS: Family Medicine; Admitting Provider Internal Medicine; Emergency Provider Emergency Medicine; Visit Provider Hospitalist
DX: T85.694A Other mechanical complication of insulin pump, initial encounter (principal); E10.10 Type 1 diabetes mellitus with ketoacidosis without coma; Q87.40 Marfan syndrome, unspecified; E10.649 Type 1 diabetes mellitus with hypoglycemia without coma; E10.43 Type 1 diabetes mellitus with diabetic autonomic (poly)neuropathy; Z79.4 Long term (current) use of insulin; F60.3 Borderline personality disorder; K31.84 Gastroparesis; K52.9 Noninfective gastroenteritis and colitis, unspecified; F17.210 Nicotine dependence, cigarettes, uncomplicated; F17.290 Nicotine dependence, other tobacco product, uncomplicated; E87.6 Hypokalemia; T38.3X6A Underdosing of insulin and oral hypoglycemic [antidiabetic] drugs, initial encounter; F43.10 Post-traumatic stress disorder, unspecified; Z96.41 Presence of insulin pump (external) (internal)
CPT/HCPCS: 36415; 36591; 74177; 80048; 80053; 81001; 82009; 82803; 82962; 83036; 83605; 83630; 83690; 83735; 84703; 85025; 85027; 87177; 87209; 87493; 87506; 87633; 96374; 96375; 99284; 99285; 99406; J7030; J7040; J7050; Q9967; A4216; J3490; J7799

== ENCOUNTER 2023-08-22 02:44 | Emergency (ER) | payer MEDICARE, MEDICAID, SELFPAY ==
[2023-08-22 02:45] VITALS: BP 147/72; PULSE 87; RESP 14; TEMP 37.1; O2SAT 96; BMI 26.4
[2023-08-22 03:21] LABS: Absolute Lymphocyte Count 2.29 X10^3/uL (0.83-4.51); Absolute Neutrophil Count 4.8 X10^3/uL (2.0-7.7); Basophil# 0.05 X10^3/uL; Basophil% 0.6 % (0-1); Eosinophil# 0.07 X10^3/uL; Eosinophils% 0.9 % (0-5); Hematocrit 37.3 % (37-47); Hemoglobin 11.6 g/dL (12.0-15.0); Lymphocyte # 2.29 X10^3/ul (0.83-4.51); Lymphocyte % 28.7 % (19-41); Mean Corp Hgb Conc 31.1 g/dL (32-36); Mean Corpuscular Hgb 28.7 pg (27.0-32.0); Mean Corpuscular Volume 92.3 fL (81-99); Monocyte# 0.63 X10^3/uL; Monocyte% 7.9 % (0-10); NRBC Flagged by Analyzer 0 % (0-5); Neutrophil # 4.83 X10^3/uL (2.7-7.7); Neutrophil % 60.5 % (47-70); Platelet Count 206 K/mm3 (150-450); RBC Distribution Width CV 13.4 % (11.6-14.6); RBC Distribution Width SD 45.2 fl (35.1-43.9); Red Blood Count 4.04 M/mm3 (4.2-5.4)
[2023-08-22] MEDS: 0.9% Normal Saline (1000mL) 1,000 ML 1000 ML IV (03:22)
--- NOTE | 2023-08-22 03:24 | EDS_ITS ---
HPI HPI - GI History of Present Illness Chief Complaint: Abd Pain Informant: patient Narrative Narrative: 28-year-old insulin-dependent diabetic presenting to the emergency room with lower abdominal pain and vomiting. Patient states she has a history of gastroparesis and this feels similar. States she had a bowel movement yesterday morning. States she had multiple episodes before noon yesterday of vomiting. She had vomiting just prior to arrival. She took a home Compazine SAL[employer] AG[employer]. States her urine is a light yellow but is worried about dehydration. She states her blood sugars have been under 200. PFSH PFSH Medical History Anxiety Borderline personality disorder Depression Diabetic gastroparesis Gastroparesis History of tachycardia Intractable vomiting Kidney disease Kidney stones Marfan syndrome PTSD (post-traumatic stress disorder) Smoker Substance abuse Type 1 diabetes Type 1 diabetes Home Medications insulin lispro 100 unit/mL subcutaneous solution (Humalog U-100 Insulin) See Rx Instructions .Route .COMPLEX 04/27/23 [History Last Taken 04/27/23] insulin glargine 100 unit/mL (3 mL) subcutaneous pen (Lantus Solostar U-100 Insulin) 30 unit (0.3 mL) subcut BID #3 mL 08/10/23 [Rx Last Taken Unknown] insulin lispro 100 unit/mL subcutaneous pen (Humalog KwikPen (U-100) Insulin) 10 unit (0.1 mL) subcut TID #3 mL 08/10/23 [Rx Last Taken Unknown] metronidazole 500 mg tablet 500 mg PO Q8 4 days #12 tabs 08/10/23 [Rx Last Taken Unknown] pen needle, diabetic 29 gauge x 1/2 (Ultra-Thin II Insulin Pen [place]) #100 ea 08/10/23 [Rx Last Taken Unknown] Allergy/AdvReac Type Severity Reaction Status Date / Time adhesive tape Allergy Intermediate Rash Verified 08/22/23 02:47 cephalexin [From Keflex] Allergy Intermediate Other Verified 08/22/23 02:47 morphine Allergy Intermediate Rash Verified 08/22/23 02:47 oxycodone [From Percocet] Allergy Intermediate Rash Verified 08/22/23 02:47 ondansetron AdvReac I BLACK Verified 08/22/23 02:47 OUT AND LOSE CONTROL OF MY BLADDER Surgical History H/O aortic root repair History of loop recorder Hx of appendectomy Hx of eye surgery Social History Smoking Status: Current some day smoker tobacco type: cigarettes and e- cigarettes substance use type: marijuana ROS ROS ED Constitutional Constitutional ED: Denies chills, fever(s) or weight loss Eyes Eyes: Denies change in vision or diplopia ENT ENT ED: Denies ear pain, rhinorrhea or sore throat Cardiovascular Cardiovascular: Denies chest pain, orthopnea, palpitations or racing heartbeat Respiratory/Chest Respiratory/Chest: Denies cough, dyspnea or orthopnea Gastrointestinal Gastrointestinal: Reports abdominal pain, nausea and vomiting; Denies diarrhea Genitourinary Genitourinary ED: Denies dysuria, hematuria or urinary frequency Musculoskeletal Musculoskeletal: Denies arthralgias or myalgias Integumentary Denies abscess or rash Neurologic Neurologic: Denies headache(s) or weakness Psychiatric Psychiatric: Denies anxiety, depression, suicidal ideation or suicidal thoughts Endocrine Endocrinology: Denies polydipsia, polyphagia or polyuria Allergic/Immunologic Allergic/Immunologic ED: Denies mouth swelling, tongue swelling or urticaria EXAM Physical Exam Const Vital Signs: 08/22/23 02:45 08/22/23 06:14 Temperature 98.7 F Temperature Source Oral Pulse Rate 87 64 Respiratory Rate 14 16 Blood Pressure 147/72 H 99/63 Blood Pressure Mean 97 75 Pulse Ox 96 97 Oxygen Delivery Method Room Air Room Air Positive well nourished and well developed General Appearance ED: well developed HEENT Reports normocephalic, head/scalp atraumatic and moist mucous membranes Eyes PERRL and EOMs intact bilaterally Neck no lymphadenopathy, supple and no JVD Resp normal respiratory effort and clear to auscultation bilaterally Cardio regular rate, regular rhythm and no murmurs GI Inspection: Negative for abdominal distention Auscultation: normoactive bowel sounds Palpation: soft and tender LLQ, RLQ and suprapubic; Negative for guarding or rebound tenderness present Back/Spine no CVA tenderness and normal ROM Extremity normal to inspection General Extremety ED: Negative for edema General Extremity: Negative for edema Neuro oriented x3 and CN's II-XII intact bilaterally Sensorium / Orientation: alert Motor Exam: strength 5/5 throughout Psych mental status grossly normal Mood & Affect: Negative for depressed or tearful Skin no rashes or lesions noted and no wounds MDM MDM MDM Narrative Medical decision making narrative: White count 8.0 with a hemoglobin of 11.6. Anion gap is 5 CO2 27. Glucose 397 liver enzymes showed an ALT of 87. Urinalysis with specific gravity of 1.010. Ketones are 5. She received IV fluids and p.o. Phenergan. She is given p.o. challenge. Patient has an insulin pump and gave herself an insulin bolus per her protocol. Recheck of her blood sugar after 2 L of normal saline and the insulin bolus of 9 units shows her glucose to be down to 207.. I do not see strong evidence of DKA at this time. Her abdominal pain is most likely gastroparesis per her description. History & Record Review Discussion w/independent historian: Patient Additional record(s) reviewed:: Prior inpatient record, Prior outpatient record, Prior ED visit and Prior labs Lab Data Attestation: I reviewed the patient's lab results. Labs: Laboratory Results - last 24 hr 08/22/23 08/22/23 08/22/23 02:58 03:24 06:11 WBC 8.0 RBC 4.04 L Hgb 11.6 L Hct 37.3 MCV 92.3 MCH 28.7 MCHC 31.1 L RDW Std Deviation 45.2 H RDW Coeff of Joyce 13.4 Plt Count 206 MPV 12.0 Immature Gran % (Auto) 1.400 H Neut % (Auto) 60.5 Lymph % (Auto) 28.7 [place] % (Auto) 7.9 Eos % (Auto) 0.9 Baso % (Auto) 0.6 Absolute Neuts (auto) 4.8 Absolute Lymphs (auto) 2.29 Nucleated RBC % 0 Sodium 138 Potassium 4.1 Chloride 106 Carbon Dioxide 27.0 Anion Gap 5 BUN 12 Creatinine 0.90 Estim Creat Clear Calc 96.39 Est GFR (MDRD) Af Amer 95 Est GFR (MDRD) Non-Af 79 BUN/Creatinine Ratio 13.4 Glucose 397 H Calcium 8.4 L Total Bilirubin 0.50 AST 36 ALT 87 H Alkaline Phosphatase 72 Total Protein 6.6 Albumin 3.3 Globulin 3.3 Albumin/Globulin Ratio 1.0 Urine Color Yellow Urine Clarity Clear Urine pH 8.0 Ur Specific [place] 1.010 Urine Protein Negative Urine Glucose (UA) 1000 H Urine Ketones 5 H Urine Occult Blood Negative Urine Nitrite Negative Urine Bilirubin Negative Urine Urobilinogen Normal Ur Leukocyte Esterase Negative Urine RBC 0 SEEN Urine WBC 0 SEEN Ur Squamous Epith Cells 0-5 SEEN Urine Bacteria 0 SEEN Urine Mucus 0 SEEN POC Glucose 207 H Discharge Plan Triage Chief Complaint: Abd Pain ED Provider: Marc Carl Dx/Rx/DC Orders Clinical Impression: Hyperglycemia due to type 1 diabetes mellitus, Abdominal pain, Vomiting, Diabetic gastroparesis Instructions: ED Diabetic Gastroparesis Prescriptions: No Action insulin lispro [Humalog U-100 Insulin] 100 unit/mL solution See Rx Instructions .ROUTE .COMPLEX Patient Comments: use IN THE INSULIN PUMP FOR A TOTAL DAILY DOSE OF 100 UNITS Rx Instructions: 100U VIA PUMP DAILY; metronidazole 500 mg Tablet 500 mg PO Q8 4 Days Qty: 12 0RF insulin glargine [Lantus Solostar U-100 Insulin] 100 unit/mL (3 mL) insulin pen 30 unit subcut BID Qty: 3 0RF insulin lispro [Humalog KwikPen Insulin] 100 unit/mL insulin pen 10 unit subcut TID Qty: 3 0RF (DME) pen needle, diabetic [Ultra-Thin II Ins Pen [place]] 29 gauge x 1/2 needle See Rx Instructions .Route Qty: 100 0RF Rx Instructions: As directed Primary Care Provider: Care Physician,No Primary Referrals: Care Physician,No Primary [Primary Care Provider] - Activity Restrictions/Additional Instructions: Please follow-up with your diabetes doctor Please keep a close eye on your blood sugar and adjust your pump accordingly. Please try to drink plenty of fluids today. Disposition Disposition: Home, Self Care Discharge Date/Time: 08/22/23 06:47
[2023-08-22 03:30] LABS: Bacteria 0 SEEN /hpf (None Seen); Mucous, Urine 0 SEEN /hpf (<or=2+); Red Blood Cells-Urine 0 SEEN /hpf (0-5); White Blood Cells 0 SEEN /hpf (0-5)
[2023-08-22 03:31] LABS: Color, Urine Yellow (Yellow); Glucose, Dipstick 1000 mg/dl (Normal); Ketone-Dipstick 5 mg/dl (Negative); Leukocyte Esterase-Dipstick Negative /ul (Negative); Nitrite-Dipstick Negative (Negative); Occult Blood-Urine Negative /ul (Negative); Protein-Dipstick Negative (Negative); Urine Bilirubin Dipstick Negative (Negative); Urine Clarity Clear (Clear); Urine Urobilinogen Normal (Normal)
[2023-08-22 03:38] LABS: Squamous Epithelial Cells - UA 0-5 SEEN /hpf (5-10)
[2023-08-22 03:38] LABS: AST(SGOT) 36 U/L (15-37); Alanine Aminotransfer ALT/SGPT 87 U/L (13-56); Albumin, Serum 3.3 g/dL (3.2-5.0); Alkaline Phosphatase 72 U/L (45-117); Anion Gap 5 (5-15); BUN 12 mg/dL (7-18); BUN/Creat Ratio 13.4 RATIO (10-20); Calcium,Total 8.4 mg/dL (8.5-10.1); Chloride 106 mmol/L (98-107); EST Glomerular Filtration Rate 79 mL/min (>60); Est Glom Filt Rate - Afr Amer 95 mL/min (>60); Estimated Creatinine Clearance 96.39 ml/min; Globulin 3.3 g/dL (2.2-4.2); Glucose 397 mg/dL (74-106); Potassium 4.1 mmol/L (3.5-5.1); Protein, Total 6.6 g/dL (6.4-8.2); Sodium Level 138 mmol/L (136-145)
[2023-08-22] MEDS: 0.9% Normal Saline (1000mL) 1,000 ML 999 ML IV (04:53)
[2023-08-22 06:14] VITALS: BP 99/63; PULSE 64; RESP 16; O2SAT 97
[2023-08-22 06:34] LABS: Bedside Glucose 207 mg/dL (74-106)
[2023-08-22] MEDS: 0.9% Saline Lock 10 ML Syringe IV (06:44)
== END 2023-08-22 06:47 | disposition home or self-care (01) ==
PROVIDERS: Emergency Provider Emergency Medicine; Visit Provider Emergency Medicine
DX: R10.9 Unspecified abdominal pain (principal); E10.65 Type 1 diabetes mellitus with hyperglycemia; E10.43 Type 1 diabetes mellitus with diabetic autonomic (poly)neuropathy; Z79.4 Long term (current) use of insulin; F17.210 Nicotine dependence, cigarettes, uncomplicated; Z96.41 Presence of insulin pump (external) (internal); R11.10 Vomiting, unspecified; K31.84 Gastroparesis; Z90.49 Acquired absence of other specified parts of digestive tract; F17.290 Nicotine dependence, other tobacco product, uncomplicated
CPT/HCPCS: 36591; 80053; 81001; 82962; 85025; 96360; 96361; 99284; J7030; A4216

== ENCOUNTER 2023-09-06 18:30 | Emergency (ER) | payer MEDICARE, MEDICAID, SELFPAY ==
[2023-09-06 18:31] VITALS: BP 102/66; PULSE 83; RESP 14; TEMP 36.8; O2SAT 97; BMI 25.3
--- NOTE | 2023-09-06 19:54 | ED.VIS.GI ---
HPI HPI - GI History of Present Illness Chief Complaint: Abd Pain Informant: patient Abdominal Pain/Flank Pain Onset: Today Context: Sudden Onset Timing: Intermittent Quality: Cramping Location: Diffuse Worsened by: Nothing Relieved by: Nothing Nausea/Vomiting/Emesis GI Symptom: Positive for Nausea and Vomiting Onset: Today Quality: Positive for Nonbilious; Negative for Blood streaks, Coffee ground or Hematemesis Diarrhea/Melena/Hematochezia GI Symptom: Negative for Diarrhea, Melena or Hematochezia Associated Symptoms Associated Symptoms: Negative for Dysuria, Frequency or Hematuria Narrative Narrative: Patient is a 28-year-old female who presents with abdominal pain, nausea, and vomiting that began today. Patient states it began around midnight today. Patient states she was having difficulty keeping things down. Patient denies any hematemesis or coffee-ground emesis. Patient denies any diarrhea, melena, or hematochezia. Patient states she has been having intermittent cramping throughout her abdomen. Patient states nothing makes it better and nothing makes it worse. Patient states she has a history of gastroparesis and states this feels similar. Patient states she is also diabetic. Patient denies any fevers or chills. [facility] Medical History Anxiety Borderline personality disorder Depression Diabetic gastroparesis Gastroparesis History of tachycardia Intractable vomiting Kidney disease Kidney stones Marfan syndrome PTSD (post-traumatic stress disorder) Smoker Substance abuse Type 1 diabetes Type 1 diabetes Home Medications insulin lispro 100 unit/mL subcutaneous solution (Humalog U-100 Insulin) See Rx Instructions .Route .COMPLEX 04/27/23 [History Last Taken 04/27/23] insulin glargine 100 unit/mL (3 mL) subcutaneous pen (Lantus Solostar U-100 Insulin) 30 unit (0.3 mL) subcut BID #3 mL 08/10/23 [Rx Last Taken Unknown] insulin lispro 100 unit/mL subcutaneous pen (Humalog KwikPen (U-100) Insulin) 10 unit (0.1 mL) subcut TID #3 mL 08/10/23 [Rx Last Taken Unknown] metronidazole 500 mg tablet 500 mg PO Q8 4 days #12 tabs 08/10/23 [Rx Last Taken Unknown] pen needle, diabetic 29 gauge x 1/2 (Ultra-Thin II Insulin Pen [place]) #100 ea 08/10/23 [Rx Last Taken Unknown] Allergy/AdvReac Type Severity Reaction Status Date / Time adhesive tape Allergy Intermediate Rash Verified 09/06/23 18:31 cephalexin [From Keflex] Allergy Intermediate Other Verified 09/06/23 18:31 morphine Allergy Intermediate Rash Verified 09/06/23 18:31 oxycodone [From Percocet] Allergy Intermediate Rash Verified 09/06/23 18:31 ondansetron AdvReac I BLACK Verified 09/06/23 18:31 OUT AND LOSE CONTROL OF MY BLADDER Surgical History H/O aortic root repair History of loop recorder Hx of appendectomy Hx of eye surgery Social History Smoking Status: Current some day smoker tobacco type: cigarettes and e-cigarettes substance use type: marijuana ROS ROS ED Constitutional Constitutional ED: Denies chills or fever(s) Eyes Eyes: Denies blurry vision or change in vision ENT ENT ED: Denies rhinorrhea or sore throat Cardiovascular Cardiovascular: Denies chest pain or palpitations Respiratory/Chest Respiratory/Chest: Denies cough or dyspnea Gastrointestinal Gastrointestinal: Reports abdominal pain, nausea and vomiting; Denies diarrhea or melena Genitourinary Genitourinary ED: Denies dysuria or hematuria Musculoskeletal Musculoskeletal: Reports neck pain; Denies back pain Integumentary Denies abscess or rash Neurologic Neurologic: Denies headache(s) or weakness Allergic/Immunologic Allergic/Immunologic ED: Denies mouth swelling or urticaria EXAM Physical Exam Const Vital Signs: 09/06/23 18:31 Temperature 98.2 F Temperature Source Temporal Pulse Rate 83 Respiratory Rate 14 Blood Pressure 102/66 Blood Pressure Mean 78 Pulse Ox 97 Oxygen Delivery Method Room Air Positive well nourished and well developed General Appearance ED: well developed and NAD HEENT Reports moist mucous membranes Neck supple and no JVD Resp normal respiratory effort and clear to auscultation bilaterally Cardio regular rate and regular rhythm GI Palpation: soft and tender epigastric, LLQ, RLQ, LUQ, RUQ, periumbilical and suprapubic; Negative for guarding or rebound tenderness present Extremity full ROM General Extremety ED: Negative for edema or tenderness General Extremity: Negative for edema Neuro CN's II-XII intact bilaterally, moves all extremities and no sensory deficits noted Sensorium / Orientation: alert Motor Exam: strength 5/5 throughout Psych mental status grossly normal and thought process normal MDM MDM MDM Narrative Medical decision making narrative: Differential diagnosis includes gastroenteritis, gastroparesis, peptic ulcer disease, bowel obstruction, perforation, diabetic ketoacidosis, urinary tract infection, and ectopic . CBC will be obtained to assess for leukocytosis and anemia. Comprehensive metabolic profile will be obtained to assess for hepatic function, renal function, and electrolyte abnormality. Serum hCG will be obtained to assess for . Urinalysis will be obtained to assess for urinary tract infection and hematuria. Lab Data Attestation: I reviewed the patient's lab results. Lab results narrative: CBC was reviewed and was essentially within normal limits. Comprehensive metabolic profile was reviewed and was essentially within normal limits. Serum hCG was reviewed and was negative. Urinalysis was reviewed. There is no evidence of urinary tract infection or hematuria. Labs: Laboratory Results - last 24 hr 09/06/23 20:24 WBC 9.6 RBC 4.34 Hgb 12.7 Hct 39.5 MCV 91.0 MCH 29.3 MCHC 32.2 RDW Std Deviation 45.5 H RDW Coeff of Joyce 13.6 Plt Count 144 L MPV 12.4 H Immature Gran % (Auto) 0.500 Neut % (Auto) 67.1 Lymph % (Auto) 25.6 [place] % (Auto) 5.7 Eos % (Auto) 0.7 Baso % (Auto) 0.4 Absolute Neuts (auto) 6.5 Absolute Lymphs (auto) 2.47 Nucleated RBC % 0 Sodium 142 Potassium 3.9 Chloride 111 H Carbon Dioxide 27.0 Anion Gap 4 L BUN 15 Creatinine 0.66 Estim Creat Clear Calc 131.44 Est GFR (MDRD) Af Amer 137 Est GFR (MDRD) Non-Af 113 BUN/Creatinine Ratio 22.9 H Glucose 101 Calcium 8.5 Total Bilirubin 0.50 AST 28 ALT 47 Alkaline Phosphatase 69 Total Protein 6.8 Albumin 3.6 Globulin 3.2 Albumin/Globulin Ratio 1.1 Serum , Qual NEGATIVE Urine Color Yellow Urine Clarity Clear Urine pH 6.5 Ur Specific [place] 1.020 Urine Protein 15 H Urine Glucose (UA) 50 H Urine Ketones 5 H Urine Occult Blood Negative Urine Nitrite Negative Urine Bilirubin Negative Urine Urobilinogen 1 H Ur Leukocyte Esterase Negative Urine RBC 0 SEEN Urine WBC 0-5 SEEN Ur Squamous Epith Cells 5-10 SEEN Urine Bacteria 0 SEEN Urine Mucus 1+ Treatment and Re-Evaluation :: Patient was given IV fluids. Patient was ordered Reglan but did not receive it. Patient states her nausea was improving without it. Patient was advised of her findings. Patient is feeling better on reevaluation. Patient was instructed to follow-up with her primary care physician in 5 to 7 days. Patient was instructed to return if worse in any way. Patient understood and was agreeable with the plan. All questions were answered. Discharge Plan Triage Chief Complaint: Abd Pain ED Provider: Greg Philip Dx/Rx/DC Orders Clinical Impression: Nausea and vomiting, Diabetic gastroparesis Instructions: ED Abdominal Pain Unkn Cause Fem, ED Diabetic Gastroparesis Prescriptions: No Action insulin lispro [Humalog U-100 Insulin] 100 unit/mL solution See Rx Instructions .ROUTE .COMPLEX Patient Comments: use IN THE INSULIN PUMP FOR A TOTAL DAILY DOSE OF 100 UNITS Rx Instructions: 100U VIA PUMP DAILY; metronidazole 500 mg Tablet 500 mg PO Q8 4 Days Qty: 12 0RF insulin glargine [Lantus Solostar U-100 Insulin] 100 unit/mL (3 mL) insulin pen 30 unit subcut BID Qty: 3 0RF insulin lispro [Humalog KwikPen Insulin] 100 unit/mL insulin pen 10 unit subcut TID Qty: 3 0RF (DME) pen needle, diabetic [Ultra-Thin II Ins Pen [place]] 29 gauge x 1/2 needle See Rx Instructions .Route Qty: 100 0RF Rx Instructions: As directed Primary Care Provider: FUNMILAYO SMITH Referrals: FUNMILAYO SMITH [Other] - 3-5 Days Care Physician,No Primary [Non-Staff] - Disposition Disposition: Home, Self Care
[2023-09-06 20:27] LABS: Bacteria 0 SEEN /hpf (None Seen); Red Blood Cells-Urine 0 SEEN /hpf (0-5)
[2023-09-06] MEDS: 0.9% Normal Saline (1000mL) 1,000 ML 1000 ML IV (20:28)
[2023-09-06 20:29] LABS: Absolute Lymphocyte Count 2.47 X10^3/uL (0.83-4.51); Absolute Neutrophil Count 6.5 X10^3/uL (2.0-7.7); Basophil# 0.04 X10^3/uL; Basophil% 0.4 % (0-1); Color, Urine Yellow (Yellow); Eosinophil# 0.07 X10^3/uL; Eosinophils% 0.7 % (0-5); Glucose, Dipstick 50 mg/dl (Normal); Hematocrit 39.5 % (37-47); Hemoglobin 12.7 g/dL (12.0-15.0); Ketone-Dipstick 5 mg/dl (Negative); Leukocyte Esterase-Dipstick Negative /ul (Negative); Lymphocyte # 2.47 X10^3/ul (0.83-4.51); Lymphocyte % 25.6 % (19-41); Mean Corp Hgb Conc 32.2 g/dL (32-36); Mean Corpuscular Hgb 29.3 pg (27.0-32.0); Mean Platelet Vol. 12.4 fl (6.2-12.0); Monocyte# 0.55 X10^3/uL; Monocyte% 5.7 % (0-10); NRBC Flagged by Analyzer 0 % (0-5); Neutrophil # 6.45 X10^3/uL (2.7-7.7); Neutrophil % 67.1 % (47-70); Nitrite-Dipstick Negative (Negative); Occult Blood-Urine Negative /ul (Negative); Platelet Count 144 K/mm3 (150-450); Protein-Dipstick 15 mg/dl (Negative); RBC Distribution Width CV 13.6 % (11.6-14.6); RBC Distribution Width SD 45.5 fl (35.1-43.9); Red Blood Count 4.34 M/mm3 (4.2-5.4); Urine Bilirubin Dipstick Negative (Negative); Urine Clarity Clear (Clear); Urine Urobilinogen 1 mg/dl (Normal); Urine pH 6.5 (5.0 - 8.0); White Blood Count 9.6 K/mm3 (4.4-11.0)
[2023-09-06 20:42] LABS: Mucous, Urine 1+ /hpf (<or=2+); Squamous Epithelial Cells - UA 5-10 SEEN /hpf (5-10); White Blood Cells 0-5 SEEN /hpf (0-5)
[2023-09-06 20:46] LABS: ALB/GLOB Ratio 1.1 RATIO (0.9-2.4); AST(SGOT) 28 U/L (15-37); Alanine Aminotransfer ALT/SGPT 47 U/L (13-56); Albumin, Serum 3.6 g/dL (3.2-5.0); Alkaline Phosphatase 69 U/L (45-117); Anion Gap 4 (5-15); BUN 15 mg/dL (7-18); BUN/Creat Ratio 22.9 RATIO (10-20); Calcium,Total 8.5 mg/dL (8.5-10.1); Chloride 111 mmol/L (98-107); Creatinine, Serum 0.66 mg/dL (0.55-1.02); EST Glomerular Filtration Rate 113 mL/min (>60); Est Glom Filt Rate - Afr Amer 137 mL/min (>60); Estimated Creatinine Clearance 131.44 ml/min; Globulin 3.2 g/dL (2.2-4.2); Glucose 101 mg/dL (74-106); Potassium 3.9 mmol/L (3.5-5.1); Protein, Total 6.8 g/dL (6.4-8.2); Sodium Level 142 mmol/L (136-145)
[2023-09-06 20:56] LABS: Internal QC Validated? YES +Cl - CLEAR BKGD; Pregnancy, Serum, hCG Quali. NEGATIVE Negative
[2023-09-06] MEDS: Metoclopramide 10 MG/2 ML Vial IV (21:28)
[2023-09-06 21:30] VITALS: BP 118/72; PULSE 60; RESP 12; O2SAT 99
[2023-09-06 21:32] VITALS: PULSE 78; RESP 18; O2SAT 99
== END 2023-09-06 22:13 | disposition home or self-care (01) ==
PROVIDERS: Emergency Provider Emergency Medicine; Visit Provider Emergency Medicine
DX: E10.43 Type 1 diabetes mellitus with diabetic autonomic (poly)neuropathy (principal); F60.3 Borderline personality disorder; Z79.4 Long term (current) use of insulin; K31.84 Gastroparesis; R11.2 Nausea with vomiting, unspecified; F17.210 Nicotine dependence, cigarettes, uncomplicated; F17.290 Nicotine dependence, other tobacco product, uncomplicated; Z79.899 Other long term (current) drug therapy
CPT/HCPCS: 36591; 80053; 81001; 84703; 85025; 96361; 96374; 99284; J7030; A4216

== ENCOUNTER 2023-09-20 10:16 | Emergency (ER) | payer MEDICARE, MEDICAID, SELFPAY ==
[2023-09-20 10:21] VITALS: BP 146/99; PULSE 133; RESP 26; TEMP 36.6; O2SAT 96; BMI 25.9
[2023-09-20 10:27] VITALS: BP 146/99; PULSE 131; RESP 26; O2SAT 98
--- NOTE | 2023-09-20 10:33 | EX.ED.DYSGE1 ---
HPI History of Present Illness Chief Complaint: Hyperglycemia Detail of Chief Complaint: High blood sugar concern for DKA Informant: patient Onset/Context/Timing Onset: Days Context: Sudden Onset Timing: Continuous Quality: High blood sugar, shortness of breath, nausea and vomiting Location: generalized Current Severity: Moderate Maximum Severity: Severe Worsened by: Hyperglycemia, blood sugar 585 Relieved by: Nothing Associated Symptoms Associated Symptoms: Generalized weakness, nausea and vomiting Narrative Narrative: Patient is a 28-year-old woman with history of type 1 diabetes. She is status post thoracic surgery for aortic aneurysm. She states her blood sugar was upper 200s and she took insulin per protocol. Her blood sugars continue to rise. She reports that she does not feel well. She had nausea and vomiting since this morning. She does endorse probably urea, polydipsia and nocturia. She denies dysuria or hematuria. She denies blood in her emesis or coffee-ground appearing emesis. She denies black or maroon-colored stool. She does admit to recent upper respiratory symptoms. She presently has a mild headache. Denies light sensitivity. Denies neck pain or neck stiffness. Her cough is nonproductive. She vomits after coughing as well. Prior similar symptoms: Yes Recent Illness/Hospitalization: No PFSH PFSH Medical History Anxiety Borderline personality disorder Depression Diabetic gastroparesis Gastroparesis History of tachycardia Intractable vomiting Kidney disease Kidney stones Marfan syndrome PTSD (post-traumatic stress disorder) Smoker Substance abuse Type 1 diabetes Type 1 diabetes Home Medications insulin lispro 100 unit/mL subcutaneous solution (Humalog U-100 Insulin) See Rx Instructions .Route .COMPLEX 04/27/23 [History Last Taken 09/20/23] pen needle, diabetic 29 gauge x 1/2 (Ultra-Thin II Insulin Pen [place]) #100 ea 08/10/23 [Rx Last Taken Unknown] insulin glargine 100 unit/mL (3 mL) subcutaneous pen (Lantus Solostar U-100 Insulin) 45 unit subcut QHS DIABETES 09/20/23 [History Last Taken Unknown] insulin lispro 100 unit/mL subcutaneous pen (Humalog KwikPen (U-100) Insulin) See Rx Instructions subcut .COMPLEX 09/20/23 [History Last Taken Unknown] metoclopramide HCl 5 mg tablet (Reglan) 10 mg (2 x 5 mg) PO Q6H #10 tabs 09/20/23 [Rx Last Taken Unknown] prochlorperazine maleate 10 mg tablet 10 mg PO Q6H PRN nausea and vomiting 09/20/23 [History Last Taken 08/31/23] risankizumab-rzaa 150 mg/mL subcutaneous pen injector (Skyrizi) 150 mg subcut .COMPLEX PSORIASIS 09/20/23 [History Last Taken 08/18/23] Allergy/AdvReac Type Severity Reaction Status Date / Time adhesive tape Allergy Intermediate Rash Verified 09/06/23 18:31 cephalexin [From Keflex] Allergy Intermediate Other Verified 09/06/23 18:31 morphine Allergy Intermediate Rash Verified 09/06/23 18:31 oxycodone [From Percocet] Allergy Intermediate Rash Verified 09/06/23 18:31 ondansetron AdvReac I BLACK Verified 09/06/23 18:31 OUT AND LOSE CONTROL OF MY BLADDER Surgical History H/O aortic root repair History of loop recorder Hx of appendectomy Hx of eye surgery Social History Smoking Status: Current some day smoker tobacco type: e-cigarettes substance use type: marijuana ROS ROS ED Constitutional Constitutional ED: Reports chills, fever(s) and subjective; Denies sweats or weight loss Eyes Eyes: Denies blurry vision, change in vision or diplopia ENT ENT ED: Denies ear pain, rhinorrhea or sore throat Cardiovascular Cardiovascular: Reports racing heartbeat; Denies chest pain, orthopnea, palpitations or paroxysmal nocturnal dyspnea Respiratory/Chest Respiratory/Chest: Reports cough; Denies dyspnea, dyspnea on exertion, orthopnea, paroxysmal nocturnal dyspnea or sputum Gastrointestinal Gastrointestinal: Reports abdominal pain, nausea and vomiting; Denies constipation, diarrhea or melena Genitourinary Genitourinary ED: Reports dysuria, hematuria and urinary frequency Musculoskeletal Musculoskeletal: Denies arthralgias, back pain or myalgias Integumentary Denies abscess or rash Neurologic Neurologic: Reports weakness Psychiatric Psychiatric: Reports anxiety Endocrine Endocrinology: Reports cold intolerance and heat intolerance Hematologic/Lymphatic Hematologic/Lymphatic: Reports systems reviewed and no addt'l complaints, except as documented EXAM Physical Exam Const Vital Signs: 09/20/23 10:21 09/20/23 10:27 09/20/23 11:18 Temperature 97.9 F Temperature Source Temporal Pulse Rate 133 H 131 H 93 Respiratory Rate 26 H 26 H 16 Respiratory Effort Respiratory Pattern Blood Pressure 146/99 H 146/99 H 126/69 H Blood Pressure Mean 114 114 88 Pulse Ox 96 98 97 Oxygen Delivery Method Room Air Room Air Room Air 09/20/23 12:22 09/20/23 13:00 09/20/23 14:00 Temperature Temperature Source Pulse Rate 100 79 Respiratory Rate 29 H 16 Respiratory Effort Normal Respiratory Pattern Normal Blood Pressure 114/63 122/66 H Blood Pressure Mean 80 84 Pulse Ox 96 97 Oxygen Delivery Method Room Air Room Air Positive well nourished and well developed Constitutional Narrative: Patient appears ill. She is pale. Monitor reveals a narrow complex tachycardia rate greater than 130. She is tachypneic. General Appearance ED: well developed and pallor; Negative for cyanotic, diaphoretic or NAD HEENT Reports moist mucous membranes HEENT Narrative: Ears are normal. Nares are patent. Posterior pharynx out erythema or exudate. Negative for trauma or tenderness Eyes PERRL and EOMs intact bilaterally General Eye ED: Negative for pale conjunctiva or scleral icterus Neck no lymphadenopathy, supple and no JVD Chest Wall inspection of chest normal and palpation of chest normal Chest Narrative: Patient has a scar due to a sort left subclavian region. There is also medial sternotomy scar due to aortic aneurysm repair. Resp normal respiratory effort and clear to auscultation bilaterally Cardio regular rhythm, S1 normal heart sound, S2 normal heart sound and no murmurs Rate: tachycardic GI normal to inspection, nondistended, normoactive bowel sounds, non-tender, non-distended and no masses; Negative for hepatosplenomegaly Back/Spine no CVA tenderness Thoracic Spine / Upper Back: Negative for thoracic spinal tenderness Lumbar Spine / Lower Back: Negative for lumbar spinal tenderness Extremity normal to inspection General Extremety ED: Negative for edema or tenderness General Extremity: Negative for edema Neuro oriented x3 and CN's II-XII intact bilaterally Sensorium / Orientation: alert Psych Mood & Affect: anxious Skin no rashes or lesions noted, no wounds and skin turgor normal General Skin Exam: pallor; Negative for jaundice MDM MDM MDM Narrative Medical decision making narrative: Patient with hyperglycemia. Need to evaluate for DKA. Will obtain EKG to assess for peaked T waves or changes concerning for hyperkalemia. IV fluids were ordered. Since she is allergic to Zofran she was treated with Reglan for her nausea and vomiting. History & Record Review Additional record(s) reviewed:: Prior ED visit and Prior labs Lab Data Attestation: I reviewed the patient's lab results. Lab results narrative: White count is elevated 17.8 with 89% segs this may represent demargination from stress. Comp is a metabolic panel is remarkable for glucose of 534 with a normal CO2 and anion gap. Patient may have a normal CO2 because she is vomiting and may actually have a mixed acid-base picture. Will obtain a VBG. Urine was positive for ketones, glucose and protein. Labs: Laboratory Results - last 24 hr 09/20/23 09/20/23 09/20/23 10:44 11:05 11:05 WBC 17.8 H RBC 4.82 Hgb 13.8 Hct 43.2 MCV 89.6 MCH 28.6 MCHC 31.9 L RDW Std Deviation 44.1 H RDW Coeff of Joyce 13.4 Plt Count 129 L MPV 13.4 H Immature Gran % (Auto) 0.700 Neut % (Auto) 89.9 H Lymph % (Auto) 5.7 L [place] % (Auto) 3.3 Eos % (Auto) 0.1 Baso % (Auto) 0.3 Absolute Neuts (auto) 16.0 H Absolute Lymphs (auto) 1.02 Nucleated RBC % 0 Sodium Cancelled Cancelled Potassium Cancelled Chloride Carbon Dioxide Anion Gap BUN Creatinine Estim Creat Clear Calc Est GFR (MDRD) Af Amer Est GFR (MDRD) Non-Af BUN/Creatinine Ratio Glucose Calcium Urine Color Urine Clarity Urine pH Ur Specific [place] Urine Protein Urine Glucose (UA) Urine Ketones Urine Occult Blood Urine Nitrite Urine Bilirubin Urine Urobilinogen Ur Leukocyte Esterase Urine RBC Urine WBC Ur Squamous Epith Cells Urine Bacteria Urine Mucus POC Glucose > 500 H* 09/20/23 09/20/23 09/20/23 11:05 11:05 11:05 WBC RBC Hgb Hct MCV MCH MCHC RDW Std Deviation RDW Coeff of Joyce Plt Count MPV Immature Gran % (Auto) Neut % (Auto) Lymph % (Auto) [place] % (Auto) Eos % (Auto) Baso % (Auto) Absolute Neuts (auto) Absolute Lymphs (auto) Nucleated RBC % Sodium Potassium Cancelled Chloride Cancelled Cancelled Carbon Dioxide Cancelled Cancelled Anion Gap Cancelled BUN Creatinine Estim Creat Clear Calc Est GFR (MDRD) Af Amer Est GFR (MDRD) Non-Af BUN/Creatinine Ratio Glucose Calcium Urine Color Urine Clarity Urine pH Ur Specific [place] Urine Protein Urine Glucose (UA) Urine Ketones Urine Occult Blood Urine Nitrite Urine Bilirubin Urine Urobilinogen Ur Leukocyte Esterase Urine RBC Urine WBC Ur Squamous Epith Cells Urine Bacteria Urine Mucus POC Glucose 09/20/23 09/20/23 09/20/23 11:05 11:05 11:05 WBC RBC Hgb Hct MCV MCH MCHC RDW Std Deviation RDW Coeff of Joyce Plt Count MPV Immature Gran % (Auto) Neut % (Auto) Lymph % (Auto) [place] % (Auto) Eos % (Auto) Baso % (Auto) Absolute Neuts (auto) Absolute Lymphs (auto) Nucleated RBC % Sodium Potassium Chloride Carbon Dioxide Anion Gap Cancelled BUN Cancelled Cancelled Creatinine Cancelled Cancelled Estim Creat Clear Calc Cancelled Est GFR (MDRD) Af Amer Est GFR (MDRD) Non-Af BUN/Creatinine Ratio Glucose Calcium Urine Color Urine Clarity Urine pH Ur Specific [place] Urine Protein Urine Glucose (UA) Urine Ketones Urine Occult Blood Urine Nitrite Urine Bilirubin Urine Urobilinogen Ur Leukocyte Esterase Urine RBC Urine WBC Ur Squamous Epith Cells Urine Bacteria Urine Mucus POC Glucose 09/20/23 09/20/23 09/20/23 11:05 11:05 11:05 WBC RBC Hgb Hct MCV MCH MCHC RDW Std Deviation RDW Coeff of Joyce Plt Count MPV Immature Gran % (Auto) Neut % (Auto) Lymph % (Auto) [place] % (Auto) Eos % (Auto) Baso % (Auto) Absolute Neuts (auto) Absolute Lymphs (auto) Nucleated RBC % Sodium Potassium Chloride Carbon Dioxide Anion Gap BUN Creatinine Estim Creat Clear Calc Cancelled Est GFR (MDRD) Af Amer Cancelled Cancelled Est GFR (MDRD) Non-Af Cancelled Cancelled BUN/Creatinine Ratio Cancelled Glucose Calcium Urine Color Urine Clarity Urine pH Ur Specific [place] Urine Protein Urine Glucose (UA) Urine Ketones Urine Occult Blood Urine Nitrite Urine Bilirubin Urine Urobilinogen Ur Leukocyte Esterase Urine RBC Urine WBC Ur Squamous Epith Cells Urine Bacteria Urine Mucus POC Glucose 09/20/23 09/20/23 09/20/23 11:05 11:05 11:05 WBC RBC Hgb Hct MCV MCH MCHC RDW Std Deviation RDW Coeff of Joyce Plt Count MPV Immature Gran % (Auto) Neut % (Auto) Lymph % (Auto) [place] % (Auto) Eos % (Auto) Baso % (Auto) Absolute Neuts (auto) Absolute Lymphs (auto) Nucleated RBC % Sodium Potassium Chloride Carbon Dioxide Anion Gap BUN Creatinine Estim Creat Clear Calc Est GFR (MDRD) Af Amer Est GFR (MDRD) Non-Af BUN/Creatinine Ratio Cancelled Glucose Cancelled Cancelled Calcium Cancelled Cancelled Urine Color Urine Clarity Urine pH Ur Specific [place] Urine Protein Urine Glucose (UA) Urine Ketones Urine Occult Blood Urine Nitrite Urine Bilirubin Urine Urobilinogen Ur Leukocyte Esterase Urine RBC Urine WBC Ur Squamous Epith Cells Urine Bacteria Urine Mucus POC Glucose 09/20/23 09/20/23 09/20/23 11:49 12:00 14:06 WBC 16.2 H RBC 4.63 Hgb 13.4 Hct 41.8 MCV 90.3 MCH 28.9 MCHC 32.1 RDW Std Deviation 44.9 H RDW Coeff of Joyce 13.5 Plt Count 111 L MPV 13.3 H Immature Gran % (Auto) 1.000 H Neut % (Auto) 91.2 H Lymph % (Auto) 4.6 L [place] % (Auto) 2.8 Eos % (Auto) 0.0 Baso % (Auto) 0.4 Absolute Neuts (auto) 14.7 H Absolute Lymphs (auto) 0.75 L Nucleated RBC % 0 Sodium 132 L Potassium 4.9 Chloride 102 Carbon Dioxide 21.0 Anion Gap 9 BUN 19 H Creatinine 1.00 Estim Creat Clear Calc 93.93 Est GFR (MDRD) Af Amer 85 Est GFR (MDRD) Non-Af 70 BUN/Creatinine Ratio 19.1 Glucose 534 H* Calcium 8.8 Urine Color Yellow Urine Clarity [place]. Cloudy Urine pH 6.0 Ur Specific [place] 1.010 Urine Protein 15 H Urine Glucose (UA) 1000 H Urine Ketones 150 A* Urine Occult Blood Negative Urine Nitrite Negative Urine Bilirubin Negative Urine Urobilinogen Normal Ur Leukocyte Esterase Negative Urine RBC 0 SEEN Urine WBC 0 SEEN Ur Squamous Epith Cells 0-5 SEEN Urine Bacteria 0 SEEN Urine Mucus 0 SEEN POC Glucose 353 H ABG Data Attestation: I personally reviewed and interpreted this ABG as follows: Interpretation: VBG is unremarkable. There is an increased base excess. This does not represent a mixed acid-base disturbance with metabolic alkalosis due to vomiting and acidosis due to DKA. ABG results: ABG 09/20/23 12:38 Specimen Type ISABELLE Sample Site Not entered VBG pH 7.35 VBG pO2 64 H VBG HCO3 21 L VBG Total CO2 22 L VBG O2 Sat (Calc) 91 H VBG Base Excess -5 L POC Mix VBG pCO2 Pt Tmp 37.3 L O2 Delivery Device Room Air Rhythm Strip Rhythm Strip: Sinus Tach Rate: 136 Ectopy: None EKG Initial EKG: Attestation: I personally reviewed and interpreted this EKG as follows: Interpretation: Sinus Tachycardia (Rate is 138. T waves are slightly peaked. Parables 114 ms per cures duration 78 ms. QT duration 296 ms. There is evidence of a left anterior fascicular block.) Prior: Unchanged Treatment and Re-Evaluation :: Heart rate improved with fluids. Patient's most recent blood sugars 264. Plan is to discharge to home. Patient is markedly better. There is no vomiting. Discharge Plan Triage Chief Complaint: Hyperglycemia ED Provider: Rm Chirinos Dx/Rx/DC Orders Clinical Impression: Hyperosmolar hyperglycemic state (HHS), Sinus tachycardia seen on environmental monitoring specialist, Ketosis, Nausea & vomiting, Acute generalized abdominal pain, Acidosis, lactic Instructions: ED Diabetic Hyperglycemia Prescriptions: New metoclopramide HCl [Reglan] 5 mg tablet 10 mg PO Q6H Qty: 10 0RF No Action insulin lispro [Humalog U-100 Insulin] 100 unit/mL solution See Rx Instructions .ROUTE .COMPLEX Patient Comments: use IN THE INSULIN PUMP FOR A TOTAL DAILY DOSE OF 100 UNITS Rx Instructions: 100 U VIA PUMP DAILY; BASAL RATE - 1.8 UNITS/HOUR BOLUS: CARB RATIO- 1 UNIT /10 GRAMS OF CARBS CORRECTION- 1 UNIT FOR EVERY 30MG/DL BLOOD GLUCOSE OVER 120 (DME) pen needle, diabetic [Ultra-Thin II Ins Pen [place]] 29 gauge x 1/2 needle See Rx Instructions .Route Qty: 100 0RF Rx Instructions: As directed Skyrizi 150 mg/mL pen injector 150 mg SUBCUT .COMPLEX Rx Instructions: 150 mg subcutaneously EVERY 3 MONTHS; prochlorperazine maleate 10 mg tablet 10 mg PO Q6H PRN (Reason: nausea and vomiting) insulin lispro [Humalog KwikPen Insulin] 100 unit/mL insulin pen See Rx Instructions subcut .COMPLEX Patient Comments: PT STATE THAT SHE ONLY TAKES IN EMERGENCY SITUATIONS WHEN PUMP NOT WORKING. DOES NOT CURRENTLY HAVE SUPPLY AT HOME. PT UNSURE OF DOSES, BUT ESTIMATES THAT ENDO PRESCRIBED CARB COUNTING. Rx Instructions: 1 UNIT FOR EVERY 10 GRAMS OF CARB WITH MEALS subcutaneously; insulin glargine [Lantus Solostar U-100 Insulin] 100 unit/mL (3 mL) insulin pen 45 unit subcut QHS Patient Comments: PT STATE THAT SHE ONLY TAKES IN EMERGENCY SITUATIONS WHEN PUMP NOT WORKING. DOES NOT CURRENTLY HAVE SUPPLY AT HOME. PT UNSURE OF DOSES, BUT ESTIMATES 45 UNITS ONCE DAILY PER ENDO. Primary Care Provider: FUNMILAYO SMITH Referrals: FUNMILAYO SMITH [Other] - 3-5 Days Disposition Disposition: Home, Self Care
[2023-09-20 11:01] LABS: Bedside Glucose > 500 mg/dL (74-106)
[2023-09-20] MEDS: 0.9% Normal Saline (1000mL) 1,000 ML 999 ML IV (11:01)
[2023-09-20] MEDS: Metoclopramide 10 MG/2 ML Vial 5 MG IV (11:03)
[2023-09-20 11:18] VITALS: BP 126/69; PULSE 93; RESP 16; O2SAT 97
[2023-09-20 11:22] LABS: Absolute Lymphocyte Count 1.02 X10^3/uL (0.83-4.51); Basophil# 0.06 X10^3/uL; Basophil% 0.3 % (0-1); Eosinophil# 0.01 X10^3/uL; Eosinophils% 0.1 % (0-5); Hematocrit 43.2 % (37-47); Hemoglobin 13.8 g/dL (12.0-15.0); Lymphocyte # 1.02 X10^3/ul (0.83-4.51); Lymphocyte % 5.7 % (19-41); Mean Corp Hgb Conc 31.9 g/dL (32-36); Mean Corpuscular Hgb 28.6 pg (27.0-32.0); Mean Corpuscular Volume 89.6 fL (81-99); Mean Platelet Vol. 13.4 fl (6.2-12.0); Monocyte# 0.59 X10^3/uL; Monocyte% 3.3 % (0-10); NRBC Flagged by Analyzer 0 % (0-5); Neutrophil # 15.99 X10^3/uL (2.7-7.7); Neutrophil % 89.9 % (47-70); Platelet Count 129 K/mm3 (150-450); RBC Distribution Width CV 13.4 % (11.6-14.6); RBC Distribution Width SD 44.1 fl (35.1-43.9); Red Blood Count 4.82 M/mm3 (4.2-5.4); White Blood Count 17.8 K/mm3 (4.4-11.0)
[2023-09-20 12:04] LABS: Bacteria 0 SEEN /hpf (None Seen); Mucous, Urine 0 SEEN /hpf (<or=2+); Red Blood Cells-Urine 0 SEEN /hpf (0-5); White Blood Cells 0 SEEN /hpf (0-5)
[2023-09-20 12:11] LABS: Absolute Lymphocyte Count 0.75 X10^3/uL (0.83-4.51); Absolute Neutrophil Count 14.7 X10^3/uL (2.0-7.7); Basophil# 0.06 X10^3/uL; Basophil% 0.4 % (0-1); Hematocrit 41.8 % (37-47); Hemoglobin 13.4 g/dL (12.0-15.0); Lymphocyte # 0.75 X10^3/ul (0.83-4.51); Lymphocyte % 4.6 % (19-41); Mean Corp Hgb Conc 32.1 g/dL (32-36); Mean Corpuscular Hgb 28.9 pg (27.0-32.0); Mean Corpuscular Volume 90.3 fL (81-99); Mean Platelet Vol. 13.3 fl (6.2-12.0); Monocyte# 0.46 X10^3/uL; Monocyte% 2.8 % (0-10); NRBC Flagged by Analyzer 0 % (0-5); Neutrophil # 14.72 X10^3/uL (2.7-7.7); Neutrophil % 91.2 % (47-70); Platelet Count 111 K/mm3 (150-450); RBC Distribution Width CV 13.5 % (11.6-14.6); RBC Distribution Width SD 44.9 fl (35.1-43.9); Red Blood Count 4.63 M/mm3 (4.2-5.4); White Blood Count 16.2 K/mm3 (4.4-11.0)
[2023-09-20 12:14] LABS: Color, Urine Yellow (Yellow); Glucose, Dipstick 1000 mg/dl (Normal); Leukocyte Esterase-Dipstick Negative /ul (Negative); Nitrite-Dipstick Negative (Negative); Occult Blood-Urine Negative /ul (Negative); Protein-Dipstick 15 mg/dl (Negative); Urine Bilirubin Dipstick Negative (Negative); Urine Clarity Sl. Cloudy (Clear); Urine Urobilinogen Normal (Normal)
[2023-09-20 12:15] LABS: Ketone-Dipstick 150 mg/dl (Negative)
[2023-09-20 12:18] LABS: Anion Gap 9 (5-15); BUN 19 mg/dL (7-18); BUN/Creat Ratio 19.1 RATIO (10-20); Calcium,Total 8.8 mg/dL (8.5-10.1); Chloride 102 mmol/L (98-107); EST Glomerular Filtration Rate 70 mL/min (>60); Est Glom Filt Rate - Afr Amer 85 mL/min (>60); Estimated Creatinine Clearance 93.93 ml/min; Glucose 534 mg/dL (74-106); Potassium 4.9 mmol/L (3.5-5.1); Sodium Level 132 mmol/L (136-145)
[2023-09-20 12:20] LABS: Squamous Epithelial Cells - UA 0-5 SEEN /hpf (5-10)
[2023-09-20 12:22] VITALS: BP 114/63; PULSE 100; RESP 29; O2SAT 96
[2023-09-20 12:41] LABS: Blood Gas Specimen Type VEN; O2 Delivery Device Room Air; SITE Not entered; VBG BASE EXCESS -5 mmol/L (-1.0-3.5); VBG Bicarbonate 21 mmol/L (22-26); VBG PO2 64 mmHg (25-40); VBG SO2 91 % (50-70); VBG TCO2 22 mmol/L (23-33); VBG pCO2 37.3 mmHg (41-51); VBG pH 7.35 (7.32-7.42)
[2023-09-20] MEDS: Insulin Lispro 100 UNIT/ML INSULN.PEN 10 UNIT SC (12:52)
[2023-09-20 13:00] VITALS: BP 122/66; PULSE 79; RESP 16; O2SAT 97
[2023-09-20 14:24] LABS: Bedside Glucose 353 mg/dL (74-106)
[2023-09-20 15:35] VITALS: BP 107/79; PULSE 79; RESP 16; O2SAT 97
[2023-09-20 15:35] LABS: Bedside Glucose 264 mg/dL (74-106)
== END 2023-09-20 15:42 | disposition home or self-care (01) ==
PROVIDERS: Emergency Provider Emergency Medicine; Visit Provider Emergency Medicine
DX: E10.69 Type 1 diabetes mellitus with other specified complication (principal); E10.43 Type 1 diabetes mellitus with diabetic autonomic (poly)neuropathy; Z79.4 Long term (current) use of insulin; E87.0 Hyperosmolality and hypernatremia; R06.02 Shortness of breath; K31.84 Gastroparesis; R11.2 Nausea with vomiting, unspecified; E87.20 Acidosis, unspecified; R10.84 Generalized abdominal pain; R00.0 Tachycardia, unspecified; R51.9 Headache, unspecified; F17.290 Nicotine dependence, other tobacco product, uncomplicated; R05.9 Cough, unspecified; Z79.899 Other long term (current) drug therapy
CPT/HCPCS: 36591; 80048; 81001; 82803; 82962; 85025; 93005; 96361; 96374; 99285; J7030; A4216

== ENCOUNTER 2023-09-24 17:47 | Emergency (ER) | payer MEDICARE, MEDICAID, SELFPAY ==
[2023-09-24 17:48] VITALS: BP 111/71; PULSE 114; RESP 18; TEMP 36.6; O2SAT 98; BMI 24.3
[2023-09-24] MEDS: Albuterol Sulfate 8 gm Inhaler (60 puffs) 2 PUFF INHALATION (18:57)
--- NOTE | 2023-09-24 19:02 | EDS_ITS ---
HPI <MARIEL Ferguson - Last Filed: 09/24/23 20:15> History of Present Illness Chief Complaint: Cough Narrative Narrative: Patient is a 28-year-old female with history of type 1 diabetes, anxiety, depression, gastroparesis who presents the emergency department with 1.5 days of cough. Patient states the cough got much worse today, where she could not catch her breath. She denies any fever or chills. Sugar was 300 at home, she did take something prior to arrival. She denies any sick contacts. Patient does vape PFSH <MARIEL Ferguson - Last Filed: 09/24/23 20:15> PFSH Medical History Anxiety Borderline personality disorder Depression Diabetic gastroparesis Gastroparesis History of tachycardia Intractable vomiting Kidney disease Kidney stones Marfan syndrome PTSD (post-traumatic stress disorder) Smoker Substance abuse Type 1 diabetes Type 1 diabetes Home Medications insulin lispro 100 unit/mL subcutaneous solution (Humalog U-100 Insulin) See Rx Instructions .Route .COMPLEX 04/27/23 [History Last Taken 09/20/23] pen needle, diabetic 29 gauge x 1/2 (Ultra-Thin II Insulin Pen [place]) #100 ea 08/10/23 [Rx Last Taken Unknown] Allergy/AdvReac Type Severity Reaction Status Date / Time adhesive tape Allergy Intermediate Rash Verified 09/24/23 17:48 cephalexin [From Keflex] Allergy Intermediate Other Verified 09/24/23 17:48 morphine Allergy Intermediate Rash Verified 09/24/23 17:48 oxycodone [From Percocet] Allergy Intermediate Rash Verified 09/24/23 17:48 ondansetron AdvReac I BLACK Verified 09/24/23 17:48 OUT AND LOSE CONTROL OF MY BLADDER Surgical History H/O aortic root repair History of loop recorder Hx of appendectomy Hx of eye surgery Social History Smoking Status: Current some day smoker tobacco type: e-cigarettes substance use type: marijuana ROS <MARIEL Ferguson - Last Filed: 09/24/23 20:15> ROS ED ROS Narrative Constitutional: Negative for fever, chills, weight loss, weakness Eyes: Negative for vision loss, vision change, double vision ENT: Negative for any sore throat, ear pain, congestion Cardiovascular: Negative for any chest pain, tightness, palpitations Respiratory: Negative for any sputum production, hemoptysis, dyspnea on exertion, orthopnea. Positive for cough, dyspnea Gastrointestinal: Negative for any abdominal pain, nausea, vomiting, diarrhea, constipation, blood in stool, blood in vomit : Negative for any urinary frequency, dysuria, retention, blood in urine Muscle skeletal: Negative for any myalgias, arthralgias, neck pain, back pain Neurological: Negative for any headache, syncope, paresthesias, dizziness Skin: Negative for any rashes, lumps, itching, abrasions, lacerations Psychiatric: Negative for any depression, anxiety, stress, suicidal ideation, homicidal ideation Hematologic: Negative for any easy bruising, excessive bruising, easy bleeding Allergies: Negative for any eczema, hives, rash EXAM <MARIEL Ferguson - Last Filed: 09/24/23 20:15> Physical Exam Narrative Exam Narrative: Vital signs reviewed. HEET: Head normocephalic atraumatic, TMs clear bilaterally. Posterior pharynx is clear, moist mucous membranes. Nares clear bilaterally. Neck: Supple with no lymphadenopathy or tenderness. No signs of meningismus. Cardiac: Regular rate and rhythm no murmurs gallops or rubs, equal peripheral pulses bilaterally. Respiratory: Lungs clear to auscultation bilaterally. No chest tenderness. Abdomen: Soft, nontender, nondistended. No abdominal bruit or pulsatile masses. No hepatosplenomegaly Extremities: No peripheral edema, no signs of gross trauma or deformity. Active full range of motion of all extremities. Neuro: Cranial nerves II through XII intact, no focal neurological deficits. Skin: Clean dry and intact with no rash, purpura, petechiae, vesicles or pustules. Backs/flank: No CVA tenderness, no midline spinal tenderness, no deformity. Psych: Normal mood and affect. No SI, HI or acute psychosis. Const Vital Signs: 09/24/23 17:48 09/24/23 18:00 09/24/23 20:19 Temperature 97.9 F 97 F L Temperature Source Temporal Pulse Rate 114 H 96 Respiratory Rate 18 16 Respiratory Effort Normal Non-Labored Respiratory Depth Normal Respiratory Pattern Normal Blood Pressure 111/71 125/66 H Blood Pressure Mean 84 85 Pulse Ox 98 97 Oxygen Delivery Method Room Air Room Air Positive well nourished and well developed General Appearance ED: well developed <Dr. Edwin Scales MD - Last Filed: 09/24/23 20:30> Physical Exam Const Vital Signs: 09/24/23 17:48 09/24/23 18:00 09/24/23 20:19 Temperature 97.9 F 97 F L Temperature Source Temporal Pulse Rate 114 H 96 Respiratory Rate 18 16 Respiratory Effort Normal Non-Labored Respiratory Depth Normal Respiratory Pattern Normal Blood Pressure 111/71 125/66 H Blood Pressure Mean 84 85 Pulse Ox 98 97 Oxygen Delivery Method Room Air Room Air MDM <MARIEL Ferguson - Last Filed: 09/24/23 20:15> [facility] Radiography Diagnostic Testing: Clinical Impression(s) from Imaging Studies Chest X-Ray 09/24/23 19:50 IMPRESSION: 1. Postsurgical changes as above with no evidence of acute cardiopulmonary disease. Electronically Signed: Alfonso Howe DO at 20:16 [facility] , Treatment and Re-Evaluation :: Patient appears to be in no obvious distress, vital signs are stable. Prese nting to the emerged part with cough, feeling of shortness of breath. Patient denies any sick contacts, differential diagnosis includes community-acquired pneumonia, RSV, other viral-like illness, reactive airway disease. Patient received a two-view chest x-ray to be interpreted by the ER physician. Patient receive rapid RSV, influenza, COVID-19. Patient will receive a albuterol inhaler here. Patient's 2 view chest x-ray interpreted the ER physician was negative. Patient was positive for influenza B. This does explain the patient's symptoms. Patient will be given the albuterol inhaler, patient will take ibuprofen, Tylenol. She instructed to maintain hydration, she will check her sugars more regularly. She is instructed return for any worsening symptoms. All questions answered stable for discharge <Dr. Edwin Scales MD - Last Filed: 09/24/23 20:30> MDM MDM Narrative Medical decision making narrative: I have personally performed a face to face assessment of the patient and have reviewed the ASHLY Note. I performed a substantive portion of the visit including all aspects of the following. My herrera findings include: History: Patient states she has had about 1-1/2 or so days of coughing. She states this feels like last time she had bronchitis. No sputum production. No pain. Has not heard wheezing. She denies history of asthma. She has felt a little bit achy. But no nausea or vomiting. Exam: Lungs actually overall sound good. She is not coughing while in the room. Mucous membranes are moist. Abdomen is soft and nontender. Medical Decision Making: Patient has a complex history. We did do chest x-ray. No sign of acute process. You can see signs of her prior aortic root repair med port because of her gastroparesis and need for frequent IVs and her loop recorder. Patient was found to have influenza. Radiography Diagnostic Testing: Clinical Impression(s) from Imaging Studies Chest X-Ray 09/24/23 19:50 IMPRESSION: 1. Postsurgical changes as above with no evidence of acute cardiopulmonary disease. Electronically Signed: Alfonso Howe DO at 20:16 EST , Discharge Plan Triage Chief Complaint: Cough ED Midlevel Provider: Siddharth Michelle ED Provider: Edwin Scales Dx/Rx/DC Orders Clinical Impression: Influenza Instructions: ED Influenza (Adult) Prescriptions: No Action insulin lispro [Humalog U-100 Insulin] 100 unit/mL solution See Rx Instructions .ROUTE .COMPLEX Patient Comments: use IN THE INSULIN PUMP FOR A TOTAL DAILY DOSE OF 100 UNITS Rx Instructions: 100 U VIA PUMP DAILY; BASAL RATE - 1.8 UNITS/HOUR BOLUS: CARB RATIO- 1 UNIT /10 GRAMS OF CARBS CORRECTION- 1 UNIT FOR EVERY 30MG/DL BLOOD GLUCOSE OVER 120 (DME) pen needle, diabetic [Ultra-Thin II Ins Pen [place]] 29 gauge x 1/2 needle See Rx Instructions .Route Qty: 100 0RF Rx Instructions: As directed Primary Care Provider: FUNMILAYO SMITH Referrals: FUNMILAYO SMITH [Other] Activity Restrictions/Additional Instructions: You have influenza B. You should start to feel better later in the week. You need to maintain hydration, keep a close eye on your sugars. You need to eat and drink, do not get behind and get dehydrated. Use ibuprofen and Tylenol. Use your albuterol inhaler. Disposition Disposition: Home, Self Care Discharge Date/Time: 09/24/23 20:19
--- NOTE | 2023-09-24 19:50 | RAD_ITS ---
INDICATION: cough EXAMINATION/TECHNIQUE: X-RAY - XR Chest 2 Views COMPARISON: CT chest pulmonary angiogram April 26, 2023. FINDINGS: LINES/DEVICES: Left-sided, subclavian, tunneled chest port with the tip at the cavoatrial junction. Intact sternotomy wires. Loop recorder. LUNGS: Symmetric normal lung volumes. No airspace opacity or abnormal interstitial pattern. No nodule or mass. No pleural effusion or pneumothorax. MEDIASTINUM AND CARDIOVASCULAR STRUCTURES: Normal size and contour of the cardiomediastinal silhouette. No evidence of pulmonary vascular congestion. BONES AND SOFT TISSUES: No fracture or focal osseous lesion. RAD/Chest PA and Lateral IMPRESSION: 1. Postsurgical changes as above with no evidence of acute cardiopulmonary disease. Electronically Signed: Alfonso Howe DO at 20:16 EST ,
[2023-09-24 20:19] VITALS: BP 125/66; PULSE 96; RESP 16; TEMP 36.1; O2SAT 97
== END 2023-09-24 20:19 | disposition home or self-care (01) ==
PROVIDERS: Emergency Provider Emergency Medicine; Visit Provider Emergency Medicine
DX: J11.1 Influenza due to unidentified influenza virus with other respiratory manifestations (principal); E10.43 Type 1 diabetes mellitus with diabetic autonomic (poly)neuropathy; K31.84 Gastroparesis; F32.A Depression, unspecified; F41.9 Anxiety disorder, unspecified; F17.290 Nicotine dependence, other tobacco product, uncomplicated
CPT/HCPCS: 71046; 87631; 99283

== ENCOUNTER 2023-09-25 08:07 | Emergency (ER) | payer MEDICARE, MEDICAID, SELFPAY ==
[2023-09-25 08:08] VITALS: BP 140/79; PULSE 116; RESP 18; TEMP 36.7; O2SAT 97; BMI 24.1
--- NOTE | 2023-09-25 08:35 | EDS_ITS ---
HPI History of Present Illness Chief Complaint: Shortness of Breath Informant: patient Narrative Narrative: Returns to the ED today reports increasing myalgias and cough with dyspnea. Seen yesterday in the ED after 1 day of dyspnea and cough. She was diagnosed y esterday with influenza B. Chest x-ray negative. Denies asthma or COPD. States wheezing, she was prescribed inhaler and using this. Feeling myalgias today. She did not get the flu vaccine this year. She states she does not get it due to getting flu symptoms. She is a type I diabetic along with having Marfan syndrome. Denies vomiting or diarrhea. Denies any fevers. Prior similar symptoms: Yes PFSH PFSH Medical History Anxiety Borderline personality disorder Depression Diabetic gastroparesis Gastroparesis History of tachycardia Intractable vomiting Kidney disease Kidney stones Marfan syndrome PTSD (post-traumatic stress disorder) Smoker Substance abuse Type 1 diabetes Type 1 diabetes Home Medications insulin lispro 100 unit/mL subcutaneous solution (Humalog U-100 Insulin) See Rx Instructions .Route .COMPLEX 04/27/23 [History Last Taken 09/20/23] pen needle, diabetic 29 gauge x 1/2 (Ultra-Thin II Insulin Pen [place]) #100 ea 08/10/23 [Rx Last Taken Unknown] ibuprofen 600 mg tablet 600 mg PO Q6H PRN PRN pain #20 TABLETS 09/25/23 [Rx Last Taken Unknown] oseltamivir 75 mg capsule (Tamiflu) 75 mg PO BID 5 days #10 caps 09/25/23 [Rx Last Taken Unknown] prochlorperazine maleate 10 mg tablet (Compazine) 10 mg PO TID PRN nausea and vomiting #20 tabs 09/25/23 [Rx Last Taken Unknown] Allergy/AdvReac Type Severity Reaction Status Date / Time adhesive tape Allergy Intermediate Rash Verified 09/25/23 08:11 cephalexin [From Keflex] Allergy Intermediate Other Verified 09/25/23 08:11 morphine Allergy Intermediate Rash Verified 09/25/23 08:11 oxycodone [From Percocet] Allergy Intermediate Rash Verified 09/25/23 08:11 ondansetron AdvReac I BLACK Verified 09/25/23 08:11 OUT AND LOSE CONTROL OF MY BLADDER Surgical History H/O aortic root repair History of loop recorder Hx of appendectomy Hx of eye surgery Social History Smoking Status: Current some day smoker tobacco type: e-cigarettes substance use type: marijuana ROS ROS ED Constitutional Constitutional ED: Denies chills, fever(s) or sweats Eyes Eyes: Denies change in vision ENT ENT ED: Denies dysphagia or sore throat Cardiovascular Cardiovascular: Denies chest pain, leg edema, palpitations or racing heartbeat Respiratory/Chest Respiratory/Chest: Reports cough and dyspnea; Denies dyspnea on exertion Gastrointestinal Gastrointestinal: Denies abdominal pain, diarrhea, nausea or vomiting Genitourinary Genitourinary ED: Denies dysuria, hematuria or urinary frequency Musculoskeletal Musculoskeletal: Reports myalgias; Denies back pain, extremity pain or neck pain Integumentary Denies rash or wounds Neurologic Neurologic: Denies headache(s), paresthesias or weakness EXAM Physical Exam Const Vital Signs: 09/25/23 08:08 09/25/23 08:37 09/25/23 11:05 Temperature 98.1 F 97.6 F L Temperature Source Temporal Pulse Rate 116 H 76 Respiratory Rate 18 14 Respiratory Effort Normal Non-Labored Respiratory Depth Normal Respiratory Pattern Normal Blood Pressure 140/79 H Blood Pressure Mean 99 Pulse Ox 97 99 Oxygen Delivery Method Room Air Room Air Positive well nourished and well developed Constitutional Narrative: Appears fatigued, nontoxic General Appearance ED: well developed HEENT Reports dry mucous membranes normocephalic and atraumatic Mouth ED: Yes dry mucous membranes Mouth: dry mucous membranes Eyes PERRL, EOMs intact bilaterally and conjunctivae normal General Eye ED: Yes normal appearance of both eyes Neck no lymphadenopathy and supple General: Negative for tenderness Chest Wall Chest: Negative for tenderness Resp normal respiratory effort and normal air movement Effort and Inspection: symmetric chest movement; Negative for respiratory di stress Cardio regular rhythm and no murmurs Rate: tachycardic Peripheral Pulses: pulses 2+ throughout GI normal to inspection, nondistended, normoactive bowel sounds and non-tender Palpation: Negative for guarding or rebound tenderness present Back/Spine no CVA tenderness and no thoracic nor lumbar tenderness Extremity normal to inspection General Extremety ED: Negative for edema or tenderness General Extremity: Negative for edema Neuro oriented x3 and no sensory deficits noted Sensorium / Orientation: awake and alert Skin no rashes or lesions noted and no wounds MDM MDM MDM Narrative Medical decision making narrative: Interventions / MDM: Differential diagnosis: Influenza, clinical dehydration Diagnosis considered but do not suspect: DKA however normal anion gap. My EKG interpretation: N/A Imaging independently reviewed and interpreted by myself: N/A External documents reviewed: N/A Test considered but not ordered:N/A ED course: Patient diagnosed influenza, appears fatigued she has dry mucosal membranes and tachycardic.'s diabetic history. Will check labs, IV fluids given Toradol given. Day 2 of symptoms will start Tamiflu as she is a diabetic. Labs are stable glucose elevated 300s, normal gap. Creatinine normal. Reassured. Pulse ox stable. She will continue oral fluids for hydration. Prescription for Tamiflu sent to her pharmacy. Refill her Compazine for nausea. Return precaution discussed with the patient. All questions were answered. Re-evaluation: stable Disposition discussed with patient/family/significant other: Patient Case discussed with consulting clinician: N/A This note was generated with [employer] dictation software. It may contain incorrect words, spelling, and punctuation that were not noted in checking the note before signing. Lab Data Attestation: I reviewed the patient's lab results. Labs: Laboratory Results - last 24 hr 09/25/23 08:59 WBC 6.0 RBC 4.61 Hgb 13.2 Hct 41.6 MCV 90.2 MCH 28.6 MCHC 31.7 L RDW Std Deviation 45.7 H RDW Coeff of Joyce 13.8 Plt Count 76 L MPV 12.8 H Immature Gran % (Auto) 1.300 H Neut % (Auto) 70.4 H Lymph % (Auto) 15.8 L Burke % (Auto) 12.0 H Eos % (Auto) 0.2 Baso % (Auto) 0.3 Absolute Neuts (auto) 4.2 Absolute Lymphs (auto) 0.95 Nucleated RBC % 0 Platelet Estimate MOD DEC Sodium 135 L Potassium 3.7 Chloride 106 Carbon Dioxide 18.0 L Anion Gap 11 BUN 14 Creatinine 0.90 Estim Creat Clear Calc 96.39 Est GFR (MDRD) Af Amer 96 Est GFR (MDRD) Non-Af 79 BUN/Creatinine Ratio 15.6 Glucose 331 H Calcium 8.4 L Discharge Plan Triage Chief Complaint: Shortness of Breath ED Provider: Olvin Ibarra Dx/Rx/DC Orders Clinical Impression: Type 1 diabetes, Hyperglycemia, Influenza Instructions: ED Diabetic Hyperglycemia, ED Influenza (Adult) Prescriptions: New ibuprofen 600 mg tablet 600 mg PO Q6H PRN PRN (Reason: pain) Qty: 20 0RF oseltamivir [Tamiflu] 75 mg capsule 75 mg PO BID 5 Days Qty: 10 0RF prochlorperazine maleate [Compazine] 10 mg tablet 10 mg PO TID PRN (Reason: nausea and vomiting) Qty: 20 0RF No Action insulin lispro [Humalog U-100 Insulin] 100 unit/mL solution See Rx Instructions .ROUTE .COMPLEX Patient Comments: use IN THE INSULIN PUMP FOR A TOTAL DAILY DOSE OF 100 UNITS Rx Instructions: 100 U VIA PUMP DAILY; BASAL RATE - 1.8 UNITS/HOUR BOLUS: CARB RATIO- 1 UNIT /10 GRAMS OF CARBS CORRECTION- 1 UNIT FOR EVERY 30MG/DL BLOOD GLUCOSE OVER 120 (DME) pen needle, diabetic [Ultra-Thin II Ins Pen [place]] 29 gauge x 1/2 needle See Rx Instructions .Route Qty: 100 0RF Rx Instructions: As directed Primary Care Provider: FUNMILAYO SMITH Referrals: FUNMILAYO SMITH [Other] - 3-5 Days Activity Restrictions/Additional Instructions: Elevated glucose of 330 normal anion gap. No signs of DKA. Take and finish Ta miflu as prescribed. Continue oral fluids for hydration. Monitor your glucose with continued insulin through your pump. Follow-up with your doctor. If you develop significant nausea or vomiting worsening symptoms that could be consistent with your DKA, return to the ED for reevaluation. Disposition Disposition: Home, Self Care Discharge Date/Time: 09/25/23 11:06
[2023-09-25 08:37] VITALS: O2SAT 97
[2023-09-25] MEDS: 0.9% Normal Saline (1000mL) 1,000 ML 1000 ML IV (09:02)
[2023-09-25] MEDS: Oseltamivir Phosphate 75 MG Capsule PO (09:02)
[2023-09-25] MEDS: Ketorolac 15 MG/ML Vial IV (09:02)
[2023-09-25 09:23] LABS: Absolute Lymphocyte Count 0.95 X10^3/uL (0.83-4.51); Absolute Neutrophil Count 4.2 X10^3/uL (2.0-7.7); Basophil# 0.02 X10^3/uL; Basophil% 0.3 % (0-1); Eosinophil# 0.01 X10^3/uL; Eosinophils% 0.2 % (0-5); Hematocrit 41.6 % (37-47); Hemoglobin 13.2 g/dL (12.0-15.0); Lymphocyte # 0.95 X10^3/ul (0.83-4.51); Lymphocyte % 15.8 % (19-41); Mean Corp Hgb Conc 31.7 g/dL (32-36); Mean Corpuscular Hgb 28.6 pg (27.0-32.0); Mean Corpuscular Volume 90.2 fL (81-99); Mean Platelet Vol. 12.8 fl (6.2-12.0); Monocyte# 0.72 X10^3/uL; NRBC Flagged by Analyzer 0 % (0-5); Neutrophil # 4.22 X10^3/uL (2.7-7.7); Neutrophil % 70.4 % (47-70); POSITIVE COUNT YES; Platelet Count 76 K/mm3 (150-450); RBC Distribution Width CV 13.8 % (11.6-14.6); RBC Distribution Width SD 45.7 fl (35.1-43.9); Red Blood Count 4.61 M/mm3 (4.2-5.4)
[2023-09-25 09:25] LABS: Differential Indicated SCAN CRITERIA MET
[2023-09-25 09:43] LABS: Anion Gap 11 (5-15); BUN 14 mg/dL (7-18); BUN/Creat Ratio 15.6 RATIO (10-20); Calcium,Total 8.4 mg/dL (8.5-10.1); Chloride 106 mmol/L (98-107); EST Glomerular Filtration Rate 79 mL/min (>60); Est Glom Filt Rate - Afr Amer 96 mL/min (>60); Estimated Creatinine Clearance 96.39 ml/min; Glucose 331 mg/dL (74-106); Potassium 3.7 mmol/L (3.5-5.1); Sodium Level 135 mmol/L (136-145)
[2023-09-25 09:57] LABS: Platelet Estimate MOD DEC (ADEQ)
[2023-09-25 11:05] VITALS: PULSE 76; RESP 14; TEMP 36.4; O2SAT 99
== END 2023-09-25 11:06 | disposition home or self-care (01) ==
PROVIDERS: Emergency Provider Emergency Medicine; Visit Provider Emergency Medicine
DX: E10.65 Type 1 diabetes mellitus with hyperglycemia (principal); E10.43 Type 1 diabetes mellitus with diabetic autonomic (poly)neuropathy; Z79.4 Long term (current) use of insulin; J11.1 Influenza due to unidentified influenza virus with other respiratory manifestations; K31.84 Gastroparesis; Q87.40 Marfan syndrome, unspecified; R06.02 Shortness of breath; R11.0 Nausea; Z79.899 Other long term (current) drug therapy; F17.290 Nicotine dependence, other tobacco product, uncomplicated
CPT/HCPCS: 36591; 80048; 85025; 96361; 96374; 99283; A4216

== ENCOUNTER 2023-10-17 09:56 | Inpatient (IN) | payer MEDICARE, MEDICAID, SELFPAY ==
[2023-10-17] VITALS (14 sets, daily range): BP systolic 91–149; BP diastolic 47–124; PULSE 50–142; RESP 10–20; TEMP 36.4–36.8; O2SAT 94–98; BMI 24.7
--- NOTE | 2023-10-17 10:34 | EKG12_ITS ---
Test Reason : HIGH BS Blood Pressure : / mmHG Vent. Rate : 121 BPM Atrial Rate : 121 BPM P-R Int : 122 ms QRS Dur : 078 ms QT Int : 314 ms P-R-T Axes : 067 -09 071 degrees QTc Int : 445 ms Sinus tachycardia Possible Left atrial enlargement Borderline ECG Confirmed by TOMASA LOCKE, SAMUEL ([id number]), managing editor QUENTIN ESPAÑA ([id number]) on 10/18/2023 9:05:48 AM Referred By: AMY/MARY Confirmed By:SAMUEL RANDOLPH MD
[2023-10-17 10:42] LABS: Absolute Lymphocyte Count 1.06 X10^3/uL (0.83-4.51); Basophil# 0.06 X10^3/uL; Basophil% 0.4 % (0-1); Eosinophil# 0.01 X10^3/uL; Eosinophils% 0.1 % (0-5); Hematocrit 42.5 % (37-47); Hemoglobin 13.6 g/dL (12.0-15.0); Lymphocyte # 1.06 X10^3/ul (0.83-4.51); Lymphocyte % 7.8 % (19-41); Mean Corpuscular Hgb 28.9 pg (27.0-32.0); Mean Corpuscular Volume 90.2 fL (81-99); Mean Platelet Vol. 12.2 fl (6.2-12.0); Monocyte# 0.32 X10^3/uL; Monocyte% 2.4 % (0-10); NRBC Flagged by Analyzer 0 % (0-5); Neutrophil # 12.03 X10^3/uL (2.7-7.7); Neutrophil % 88.4 % (47-70); Platelet Count 138 K/mm3 (150-450); RBC Distribution Width CV 13.1 % (11.6-14.6); RBC Distribution Width SD 43.1 fl (35.1-43.9); Red Blood Count 4.71 M/mm3 (4.2-5.4); White Blood Count 13.6 K/mm3 (4.4-11.0)
[2023-10-17] MEDS: Metoclopramide 10 MG/2 ML Vial IV (10:47)
[2023-10-17] MEDS: 0.9% Normal Saline (1000mL) 1,000 ML 999 ML IV ×2 (10:47→11:36)
[2023-10-17 10:56] LABS: Anion Gap 18 (5-15); BUN 22 mg/dL (7-18); BUN/Creat Ratio 18.6 RATIO (10-20); Calcium,Total 9.1 mg/dL (8.5-10.1); Chloride 98 mmol/L (98-107); Creatinine, Serum 1.18 mg/dL (0.55-1.02); EST Glomerular Filtration Rate 58 mL/min (>60); Est Glom Filt Rate - Afr Amer 70 mL/min (>60); Estimated Creatinine Clearance 73.52 ml/min; Glucose 534 mg/dL (74-106); Potassium 4.8 mmol/L (3.5-5.1); Sodium Level 132 mmol/L (136-145)
--- NOTE | 2023-10-17 11:15 | EX.ED.DYSGE1 ---
HPI <Jacqueline Alvarez RN - Last Filed: 10/17/23 11:31> History of Present Illness Chief Complaint: Hyperglycemia Detail of Chief Complaint: High blood sugar at home this morning Informant: patient Onset/Context/Timing Onset: Today Timing: Continuous Associated Symptoms Associated Symptoms: Nausea, vomiting, abdominal pain Narrative Narrative: Patient presents to the ED with complaints of increased nausea beginning beginning 10/13/2019 in the evening. Patient reports she vomited once on 10/14/2023. Vomited 4-5 times this morning with the last episode containing bile. Patient reports being able to continue to drink water. Patient also reports increased lower abdominal pain beginning last night which she attributed to a gastroparesis attack. Patient describes a squeezing in the mid abdomen. Indicates she has chronic abdominal pain. She currently rates this pain a 8/10 with her baseline being 6/10. No aggravating or relieving factors. Patient reports feeling as if she is constipated. Reports small soft bowel movements with the last one being yesterday. Patient also reports her blood glucose at home was 556 this morning. Reports she averages approximately 100-110 over the last week. She reports increased thirst and increased urination. Patient also reports increased chest pain that she describes as a sharp ache worse with her vomiting. Rates as 7/10 with her baseline intermittent chest pain being 5/10. Patient reports trying Compazine on 10/15/2023 Phenergan on 10/16/2023 in the evening without relief. Patient indicates her last admission for DKA was within the last few months. Patient also reports last episode of gastroparesis was 08/21/2023. Prior similar symptoms: Yes Recent Illness/Hospitalization: No PFSH <Jacqueline Alvarez RN - Last Filed: 10/17/23 11:31> PFSH Medical History Anxiety Borderline personality disorder Depression Diabetic gastroparesis Gastroparesis History of tachycardia Intractable vomiting Kidney disease Kidney stones Marfan syndrome PTSD (post-traumatic stress disorder) Smoker Substance abuse Type 1 diabetes Type 1 diabetes Home Medications insulin lispro 100 unit/mL subcutaneous solution (Humalog U-100 Insulin) See Rx Instructions .Route .COMPLEX 04/27/23 [History Last Taken 09/20/23] pen needle, diabetic 29 gauge x 1/2 (Ultra-Thin II Insulin Pen [place]) #100 ea 08/10/23 [Rx Last Taken Unknown] ibuprofen 600 mg tablet 600 mg PO Q6H PRN PRN pain #20 TABLETS 09/25/23 [Rx Last Taken Unknown] oseltamivir 75 mg capsule (Tamiflu) 75 mg PO BID 5 days #10 caps 09/25/23 [Rx Last Taken Unknown] prochlorperazine maleate 10 mg tablet (Compazine) 10 mg PO TID PRN nausea and vomiting #20 tabs 09/25/23 [Rx Last Taken Unknown] Allergy/AdvReac Type Severity Reaction Status Date / Time adhesive tape Allergy Intermediate Rash Verified 10/17/23 09:57 cephalexin [From Keflex] Allergy Intermediate Other Verified 10/17/23 09:57 morphine Allergy Intermediate Rash Verified 10/17/23 09:57 oxycodone [From Percocet] Allergy Intermediate Rash Verified 10/17/23 09:57 ondansetron AdvReac I BLACK Verified 10/17/23 09:57 OUT AND LOSE CONTROL OF MY BLADDER Surgical History H/O aortic root repair History of loop recorder Hx of appendectomy Hx of eye surgery Social History Smoking Status: Current some day smoker tobacco type: e-cigarettes substance use type: marijuana ROS <Jacqueline Alvarez RN - Last Filed: 10/17/23 11:31> ROS ED Constitutional Constitutional ED: Reports chills; Denies fever(s) or sweats Eyes Eyes: Denies blurry vision ENT ENT ED: Denies sore throat Cardiovascular Cardiovascular: Reports chest pain; Denies palpitations or racing heartbeat Respiratory/Chest Respiratory/Chest: Denies cough or dyspnea Gastrointestinal Gastrointestinal: Reports abdominal pain, constipation, nausea and vomiting Genitourinary Genitourinary ED: Reports dysuria and urinary frequency Musculoskeletal Musculoskeletal: Reports arthralgias; Denies myalgias Neurologic Neurologic: Reports weakness; Denies headache(s) Hematologic/Lymphatic Hematologic/Lymphatic: Reports systems reviewed and no addt'l complaints, except as documented EXAM <Jacqueline Alvarez RN - Last Filed: 10/17/23 11:31> Physical Exam Const Vital Signs: 10/17/23 09:57 10/17/23 10:02 10/17/23 10:02 Temperature 98.2 F Temperature Source Oral Pulse Rate 138 H 142 H Respiratory Rate 18 Respiratory Effort Normal Respiratory Pattern Normal Blood Pressure 149/124 H Blood Pressure Mean 132 Pulse Ox 96 Oxygen Delivery Method Room Air Positive well nourished and well developed General Appearance ED: well developed HEENT Reports moist mucous membranes Eyes PERRL Neck no lymphadenopathy Chest Wall inspection of chest normal and palpation of chest normal Resp normal respiratory effort and clear to auscultation bilaterally Cardio regular rhythm, S1 normal heart sound, S2 normal heart sound and no murmurs Rate: tachycardic GI Auscultation: normoactive bowel sounds Palpation: soft and tender LLQ, RLQ, LUQ and RUQ Extremity normal to inspection General Extremety ED: Negative for edema or tenderness General Extremity: Negative for edema Neuro oriented x3 Sensorium / Orientation: alert Psych mental status grossly normal Skin no rashes or lesions noted <Dr. Alexandro Garces MD - Last Filed: 10/17/23 11:38> Physical Exam Const Vital Signs: 10/17/23 09:57 10/17/23 10:02 10/17/23 10:02 Temperature 98.2 F Temperature Source Oral Pulse Rate 138 H 142 H Respiratory Rate 18 Respiratory Effort Normal Respiratory Pattern Normal Blood Pressure 149/124 H Blood Pressure Mean 132 Pulse Ox 96 Oxygen Delivery Method Room Air MDM <Jacqueline Alvarez RN - Last Filed: 10/17/23 11:31> MDM MDM Narrative Medical decision making narrative: Patient placed on monitor car operator. IV line initiated. Labwork obtained to evaluate for leukocytosis, anemia, and electrolyte derangement. Normal saline ordered due to vomiting. Reglan ordered due to vomiting. History & Record Review Discussion w/independent historian: Patient Additional record(s) reviewed:: Prior inpatient record Lab Data Attestation: I reviewed the patient's lab results. Labs: Laboratory Results - last 24 hr 10/17/23 10:35 WBC 13.6 H RBC 4.71 Hgb 13.6 Hct 42.5 MCV 90.2 MCH 28.9 MCHC 32.0 RDW Std Deviation 43.1 RDW Coeff of Joyce 13.1 Plt Count 138 L MPV 12.2 H Immature Gran % (Auto) 0.900 Neut % (Auto) 88.4 H Lymph % (Auto) 7.8 L Ashley % (Auto) 2.4 Eos % (Auto) 0.1 Baso % (Auto) 0.4 Absolute Neuts (auto) 12.0 H Absolute Lymphs (auto) 1.06 Nucleated RBC % 0 Sodium 132 L Potassium 4.8 Chloride 98 Carbon Dioxide 16.0 L Anion Gap 18 H BUN 22 H Creatinine 1.18 H Estim Creat Clear Calc 73.52 Est GFR (MDRD) Af Amer 70 Est GFR (MDRD) Non-Af 58 L BUN/Creatinine Ratio 18.6 Glucose 534 H* Calcium 9.1 Acetone Level MODERATE H EKG Initial EKG: Attestation: I personally reviewed and interpreted this EKG as follows: Interpretation: Sinus Tachycardia Comments: Sinus tachycardia with heart rate 121. No dysrhythmias or ischemia noted. Prior EKG tracings: not available for review Differential Diagnosis Differential Diagnosis: DKA Differential Diagnosis: Gastroparesis Management Discussion w/another healthcare provider: Other (Dr. Garces, ED provider) Treatment and Re-Evaluation :: Complete blood count shows white blood cells 13.6 with neutrophils 88.4%. Hemoglobin 13.6. Chemistries show hyponatremia at 132. Potassium normal at 4.8. Carbon dioxide low at 16. BUN 22 and creatinine 1.18. Anion gap 18 and glucose 534. Serum acetone is moderate. Patient initially given 1 L normal saline. Lab work reveals patient is in DKA. Additional liter normal saline ordered as well as an insulin drip. Upon reevaluation, patient appears to be resting more comfortably in bed. Heart rate 91 sinus rhythm. Patient aware she is in DKA. Asked to remove insulin pump which patient did. Patient aware of plan for admission. Dr. Garces discussed case with hospitalist. <Dr. Alexandro Garces MD - Last Filed: 10/17/23 11:38> [facility] Narrative Medical decision making narrative: Patient placed on monitor car operator. IV line initiated. Labwork obtained to evaluate for leukocytosis, anemia, and electrolyte derangement. Normal saline ordered due to vomiting. Reglan ordered due to vomiting. I have personally performed a face to face assessment of the patient and have reviewed the ASHLY Note. I performed a substantive portion of the visit including all aspects of the following. My herrera findings include: History is [28-year-old female history of diabetes with insulin pump. Has not felt well the last 2 days with nausea and vomiting today. History of prior DKA. No dysuria. No fever.] Exam is [27-year-old female vital signs stable initial blood pressure elevated 149/124. Tachycardic 140. Afebrile. H EENT exam dry mucous membranes. Pupils round reactive light extra motions are intact. No droop. Normal speech. Neck nontender no lymphadenopathy. Lungs clear to auscultation bilaterally. Heart tachycardic no murmur. Chest wall nontender. Abdomen soft nontender. No peritoneal signs. No distention. Moving all 4 extremities. Nontender no edema. No erythema. Neurologically patient is awake and alert with no focal motor deficits. Answering questions and following commands.] Medical Decision Making [28-year-old female with concern for DKA. Screening labs. IV fluids. Once the labs returned the patient is written for second liter normal saline and an insulin drip. I spoke to the hospitalist about admission to the ICU for DKA.] Other additions or changes: [None] Lab Data Lab results narrative: CBC shows a white count of 13.6. Patient often has elevated white counts between 16 and 22,000. H&H 13 and 42. Platelets 138. Electrolytes show sodium 132. Gap 18. BUN 22 creatinine 1.18 consistent with mild dehydration. Glucose 534. Acetone level moderate. Labs are consistent with DKA and dehydration. IV fluids and insulin drip. Labs: Laboratory Results - last 24 hr 10/17/23 10:35 WBC 13.6 H RBC 4.71 Hgb 13.6 Hct 42.5 MCV 90.2 MCH 28.9 MCHC 32.0 RDW Std Deviation 43.1 RDW Coeff of Joyce 13.1 Plt Count 138 L MPV 12.2 H Immature Gran % (Auto) 0.900 Neut % (Auto) 88.4 H Lymph % (Auto) 7.8 L Ashley % (Auto) 2.4 Eos % (Auto) 0.1 Baso % (Auto) 0.4 Absolute Neuts (auto) 12.0 H Absolute Lymphs (auto) 1.06 Nucleated RBC % 0 Sodium 132 L Potassium 4.8 Chloride 98 Carbon Dioxide 16.0 L Anion Gap 18 H BUN 22 H Creatinine 1.18 H Estim Creat Clear Calc 73.52 Est GFR (MDRD) Af Amer 70 Est GFR (MDRD) Non-Af 58 L BUN/Creatinine Ratio 18.6 Glucose 534 H* Calcium 9.1 Acetone Level MODERATE H Rhythm Strip Rhythm Strip: Sinus Tach Rate: 121 Ectopy: None <Dr. Alexandro Garces MD - Last Filed: 10/17/23 11:38> Critical Care Time Critical Care Time: Yes Critical care time (excluding procedures): 30-74 minutes, Including time spent:, Discussing w/Patient &/or Family/Case Specialist, Discussing w/Consultants, Arranging Admission or Transfer, Performing Direct Patient Care at Bedside and - (35 minutes) Discharge Plan Dx/Rx/DC Orders Clinical Impression: DKA (diabetic ketoacidosis), Tachycardia, Nausea & vomiting, Acute dehydration Disposition Disposition: Acute Care Hospital [facility]
--- NOTE | 2023-10-17 11:20 | HP.PCM_ITS ---
HPI - General General Date of Admission: 10/17/23 Date of Service: 10/17/23 Chief Complaint: Hyperglycemia HPI Narrative THEODORE VILLA, is a 28 F with a PMH as outlined who presents via the ED on 10/17/2023 with a complaint of hyperglycemia. She is a known type 1 diabetic. She has not been feeling well for the past few days. She admited to nausea and vomiting but denied any fever or chills or any other symptoms. Review of systems is otherwise negative. Vitals in the ED were temperature of 98.2 with heart rate of 142 and blood pressure of 149/124. Respirate rate was 18. She was saturating at 96% on room air. CBC showed WBC of 13.6 with hemoglobin of 13.6 and platelets of 158. Chemistry shows sodium of 152 with anion gap of 18 and creatinine of 1.18. Bicarb was 16. Glucose was 534. Serum acetone level was moderate. She has been admitted to be managed for DKA and an known type I diabetic. [facility] Medical History Anxiety Borderline personality disorder Depression Diabetic gastroparesis Gastroparesis History of tachycardia Intractable vomiting Kidney disease Kidney stones Marfan syndrome PTSD (post-traumatic stress disorder) Smoker Substance abuse Type 1 diabetes Type 1 diabetes Home Medications insulin lispro 100 unit/mL subcutaneous solution (Humalog U-100 Insulin) See Rx Instructions .Route .COMPLEX 04/27/23 [History Last Taken 09/20/23] pen needle, diabetic 29 gauge x 1/2 (Ultra-Thin II Insulin Pen [place]) #100 ea 08/10/23 [Rx Last Taken Unknown] prochlorperazine maleate 10 mg tablet (Compazine) 10 mg PO TID PRN nausea and vomiting #20 tabs 09/25/23 [Rx Last Taken Unknown] Allergy/AdvReac Type Severity Reaction Status Date / Time adhesive tape Allergy Intermediate Rash Verified 10/17/23 09:57 cephalexin [From Keflex] Allergy Intermediate Other Verified 10/17/23 09:57 morphine Allergy Intermediate Rash Verified 10/17/23 09:57 oxycodone [From Percocet] Allergy Intermediate Rash Verified 10/17/23 09:57 ondansetron AdvReac I BLACK Verified 10/17/23 09:57 OUT AND LOSE CONTROL OF MY BLADDER Surgical History H/O aortic root repair History of loop recorder Hx of appendectomy Hx of eye surgery Social History Smoking Status: Current some day smoker tobacco type: e-cigarettes substance use type: marijuana ROS Constitutional Constitutional: Reports chills, malaise and weakness; Denies anorexia, change in weight, fatigue or fever(s) Eyes Eyes: Denies change in vision ENT HEENT: Denies dysphagia or headache(s) Cardiovascular Cardiovascular: Denies chest pain, edema, orthopnea, palpitations, paroxysmal nocturnal dyspnea or syncope Respiratory/Chest Respiratory/Chest: Denies cough, shortness of breath at rest, shortness of breath with exertion or wheezing Gastrointestinal Gastrointestinal: Denies abdominal pain, diarrhea, nausea or vomiting Genitourinary Genitourinary: Denies dysuria Neurologic Neurologic: Denies confusion, dizziness, focal weakness or headache(s) Endocrine Endocrinology: Denies change in body appearance Vital Signs Vital Signs Vital Signs: 10/17/23 09:57 10/17/23 10:02 10/17/23 10:02 Temperature 98.2 F Temperature Source Oral Pulse Rate 138 H 142 H Respiratory Rate 18 Respiratory Effort Normal Respiratory Pattern Normal Blood Pressure 149/124 H Blood Pressure Mean 132 Pulse Ox 96 Oxygen Delivery Method Room Air Weight Weight: 167 lb 15.876 oz Body Mass Index (BMI) 24.7 Physical Exam Const alert and oriented x3 Constitutional Narrative: frail, weak. HEENT normocephalic, head/scalp atraumatic and moist oral mucous membranes Eyes PERRL and EOMs intact bilaterally Neck supple and no JVD Lymph Lymphatic: no lymphadenopathy noted Resp normal respiratory effort, normal air movement and clear to auscultation bilaterally Cardio regular rate, regular rhythm, S1 normal heart sound, S2 normal heart sound and no murmurs GI normal to inspection, nondistended, normoactive bowel sounds, soft to palpation and non-distended GI Narrative: Minimal generalized tenderness. No guarding. Extremity normal capillary refill, no clubbing, cyanosis or edema and no calf tenderness Skin General Skin Exam: no breakdown and turgor normal Neuro CN's II-XII intact bilaterally and no focal motor deficits Motor Exam: strength 5/5 throughout and general weakness Psych thought process normal and cooperative Appearance: appropriate Results Lab / Micro Data 10/17/23 10:35 10/17/23 13:00 Labs: Laboratory Results - last 24 hr 10/17/23 10:35: WBC 13.6 H, RBC 4.71, Hgb 13.6, Hct 42.5, MCV 90.2, MCH 28.9, MCHC 32.0, RDW Std Deviation 43.1, RDW Coeff of Joyce 13.1, Plt Count 138 L, MPV 12.2 H, Immature Gran % (Auto) 0.900, Neut % (Auto) 88.4 H, Lymph % (Auto) 7.8 L , [place] % (Auto) 2.4, Eos % (Auto) 0.1, Baso % (Auto) 0.4, Absolute Neuts (auto) 12.0 H, Absolute Lymphs (auto) 1.06, Nucleated RBC % 0, Sodium 132 L, Potassium 4.8, Chloride 98, Carbon Dioxide 16.0 L, Anion Gap 18 H, BUN 22 H, Creatinine 1.18 H, Estim Creat Clear Calc 73.52, Est GFR (MDRD) Af Amer 70, Est GFR (MDRD) Non-Af 58 L, BUN/Creatinine Ratio 18.6, Glucose 534 H*, Calcium 9.1, Acetone Level MODERATE H Assessment & Plan Assessment/Plan (1) Nausea & vomiting: (2) DKA (diabetic ketoacidosis): PLAN: Plan #DKA in the setting of type 1 diabetes * blood sugar was >500 * anion gap was 18 and bicarb was 16. * admit to ICU * start on insulin drip; check BMP q4hrly * continue insulin drip until anion gap closes x 2, and then switch to her insulin pump * patient says she has been compliant with her insulin pump and diet, and her last A1C was 6.7. * follows up with an account support associate in [facility] in [place]. * last A1C from 08/07/2023 was 7 * #Gastroparesis in the setting of type 1 diabetes mellitus * on compazine. Add on phenergan prn * will benefit from metoclorpromide if nausea persists. * #Hypotension * BP is down in the 90s systolic. * will hydrate with IVF and trend. * DVT prpphylaxis: lovenox. Charges/Coding Visit Charges Inpatient E&M: 67500 Init Hosp L3
[2023-10-17] MEDS: Ketorolac 30 MG/ML Syringe IV ×2 (11:36→16:18)
[2023-10-17] MEDS: Insulin Lispro 100 UNIT in 0.9% Normal Saline (100mL Bag) 99 ML 7.59999999999999964 UNIT CONT INF (11:37)
[2023-10-17 13:17] LABS: Bedside Glucose 304 mg/dL (74-106)
[2023-10-17 13:31] LABS: Anion Gap 11 (5-15); BUN 20 mg/dL (7-18); BUN/Creat Ratio 20.4 RATIO (10-20); Calcium,Total 8.3 mg/dL (8.5-10.1); Chloride 107 mmol/L (98-107); Creatinine, Serum 0.98 mg/dL (0.55-1.02); EST Glomerular Filtration Rate 71 mL/min (>60); Est Glom Filt Rate - Afr Amer 86 mL/min (>60); Estimated Creatinine Clearance 85.44 ml/min; Glucose 303 mg/dL (74-106); Potassium 4.1 mmol/L (3.5-5.1); Sodium Level 137 mmol/L (136-145)
[2023-10-17] MEDS: 0.9% Normal Saline (1000mL) 1,000 ML 500 ML IV (13:33)
[2023-10-17] MEDS: Dext 5%-0.45% NS 1,000 ML 150 ML IV (14:10)
[2023-10-17 14:28] LABS: Bedside Glucose 241 mg/dL (74-106)
[2023-10-17 15:15] LABS: Bedside Glucose 217 mg/dL (74-106)
[2023-10-17] MEDS: proCHLORPERazine 10 MG/2 ML Vial IV (16:19)
[2023-10-17 16:31] LABS: Bedside Glucose 207 mg/dL (74-106)
[2023-10-17 17:06] LABS: Anion Gap 7 (5-15); BUN 20 mg/dL (7-18); BUN/Creat Ratio 23.8 RATIO (10-20); Chloride 109 mmol/L (98-107); Creatinine, Serum 0.84 mg/dL (0.55-1.02); EST Glomerular Filtration Rate 85 mL/min (>60); Est Glom Filt Rate - Afr Amer 103 mL/min (>60); Estimated Creatinine Clearance 103.27 ml/min; Glucose 261 mg/dL (74-106); Potassium 4.3 mmol/L (3.5-5.1); Sodium Level 138 mmol/L (136-145)
[2023-10-17 17:24] LABS: Bedside Glucose 239 mg/dL (74-106)
[2023-10-17 21:38] LABS: Bedside Glucose 293 mg/dL (74-106)
[2023-10-18] VITALS (11 sets, daily range): BP systolic 96–128; BP diastolic 55–71; PULSE 47–62; RESP 16–21; TEMP 36.4–36.6; O2SAT 95–100; BMI 24.6
[2023-10-18 04:57] LABS: Absolute Lymphocyte Count 2.87 X10^3/uL (0.83-4.51); Absolute Neutrophil Count 5.3 X10^3/uL (2.0-7.7); Basophil# 0.03 X10^3/uL; Basophil% 0.3 % (0-1); Eosinophil# 0.09 X10^3/uL; Hematocrit 36.4 % (37-47); Lymphocyte # 2.87 X10^3/ul (0.83-4.51); Lymphocyte % 32.5 % (19-41); Mean Corpuscular Hgb 29.5 pg (27.0-32.0); Mean Corpuscular Volume 89.4 fL (81-99); Mean Platelet Vol. 12.1 fl (6.2-12.0); Monocyte# 0.53 X10^3/uL; NRBC Flagged by Analyzer 0 % (0-5); Neutrophil # 5.26 X10^3/uL (2.7-7.7); Neutrophil % 59.5 % (47-70); Platelet Count 111 K/mm3 (150-450); RBC Distribution Width CV 13.2 % (11.6-14.6); Red Blood Count 4.07 M/mm3 (4.2-5.4); White Blood Count 8.8 K/mm3 (4.4-11.0)
[2023-10-18 05:14] LABS: Anion Gap 3 (5-15); BUN 16 mg/dL (7-18); Calcium,Total 7.6 mg/dL (8.5-10.1); Chloride 110 mmol/L (98-107); Creatinine, Serum 0.67 mg/dL (0.55-1.02); EST Glomerular Filtration Rate 111 mL/min (>60); Est Glom Filt Rate - Afr Amer 135 mL/min (>60); Estimated Creatinine Clearance 129.48 ml/min; Glucose 227 mg/dL (74-106); Potassium 4.1 mmol/L (3.5-5.1); Sodium Level 138 mmol/L (136-145)
[2023-10-18] MEDS: proCHLORPERazine 10 MG/2 ML Vial IV (08:32)
--- NOTE | 2023-10-18 09:26 | CASEMGMT ---
STIVEN SMILEY Assessment Face to Face with patient for initial transition planning/care coordination assessment. STIVEN SMILEY introduced self and role at [facility], pt voices understanding. Pt is A&Ox4 and is resting comfortably in bed and is calm. Care providers, pharmacy, and demographics verified. Admitting dx: DKA LACE Strata: 3 PCP: Frederick Carmen Specialists: Dr. Taryn Lewis ([employer] in [place] [facility]), Dr. Hylton ([facility]GI), Dr. Cohen (Cardio-[facility]) Preferred Pharmacy: [facility] Insurance: [employer] Prescription Benefit: Yes LNOK: Tiffanie Donis ([place]) Living Arrangements: Pt lives with her roommate on the second floor of a single level apartment with a flight of steps with HR with no issues. ADLs/IADLs: Ind Transportation: Pt states that she does not have a license at this time. Pt uses her insurance and also the [employer] bus for transportation DME: Pt states she checks her BS and has enough supplies to do so. She has an insulin pump and a BGM. HHC/SNF: Denies Pt?s goal: Home no needs Plan: Pt BS was 534 upon arrival. The plan is to get the pt BS under control and potentially DC today with no additional needs. Pt denies the need of any additional therapy or DME at this time. Sinai Bello RN, CM
--- NOTE | 2023-10-18 10:54 | DS.PCM_ITS ---
Providers Date of Admission: 10/17/23 Date of Discharge: 10/18/23 Primary Care Physician: FUNMILAYO SMITH Reason For Visit: DKA Diagnosis Discharge Diagnosis (1) Nausea & vomiting: Status: Acute Code(s): R11.2 - Nausea with vomiting, unspecified (2) DKA (diabetic ketoacidosis): Status: Acute Code(s): E11.10 - Type 2 diabetes mellitus with ketoacidosis without coma Plan #DKA in the setting of type 1 diabetes * blood sugar was >500 * anion gap was 18 and bicarb was 16. * admit to ICU * start on insulin drip; check BMP q4hrly * continue insulin drip until anion gap closes x 2, and then switch to her insulin pump * patient says she has been compliant with her insulin pump and diet, and her last A1C was 6.7. * follows up with an environmental solutions engineer in [facility] in [place]. * last A1C from 08/07/2023 was 7 * #Gastroparesis in the setting of type 1 diabetes mellitus * on compazine. Add on phenergan prn * will benefit from metoclorpromide if nausea persists. * #Hypotension * BP is down in the 90s systolic. * will hydrate with IVF and trend. * DVT prpphylaxis: lovenox. Medications at Discharge Home Medications insulin lispro 100 unit/mL subcutaneous solution (Humalog U-100 Insulin) See Rx Instructions .Route .COMPLEX 04/27/23 pen needle, diabetic 29 gauge x 1/2 (Ultra-Thin II Insulin Pen [place]) #100 ea 08/10/23 prochlorperazine maleate 10 mg tablet (Compazine) 10 mg PO TID PRN nausea and vomiting #20 tabs 09/25/23 Hospital Course Operations None Procedures None Summary of Care Provided Minutes Spent on Discharge: 55 Hospital Course: THEODORE VILLA, is a 28 F with a PMH as outlined who presents via the ED on 10/17/2023 with a complaint of hyperglycemia. She is a known type 1 diabetic. She has not been feeling well for the past few days. She admitted to nausea and vomiting but denied any fever or chills or any other symptoms. Review of systems is otherwise negative. Had A1c in EMR from July 2023 was 7, and per patient, her last A1C with her environmental solutions engineer was 6.7. She had however had recurrent DKA. Vitals in the ED were temperature of 98.2 with heart rate of 142 and blood pressure of 149/124. Respirate rate was 18. She was saturating at 96% on room air. CBC showed WBC of 13.6 with hemoglobin of 13.6 and platelets of 158. Chemistry shows sodium of 152 with anion gap of 18 and creatinine of 1.18. Bicarb was 16. Glucose was 534. Serum acetone level was moderate. She was admitted to be managed for DKA and an known type I diabetic. SHe was admitted to the ICU and started on insulin drip. Her DKA resolved and gap closed x 2. She was placed on her insulin pump. She was also placed on a diet which she tolerated. She remained stable and was discharged home on 10/18/2023. She is to follow up with her PCP and environmental solutions engineer as well as crna o/a of gastroparesis. Patient seen and examined prior to discharge. She had no active complaints and had an uneventful night. Review of systems is otherwise negative. Labs and vitals reviewed. Home meds reviewed and reconciled. Physical Exam Const alert, oriented x3 and no apparent distress General Appearance: cooperative and comfortable Orientation / Consciousness: awake HEENT normocephalic, head/scalp atraumatic, hearing grossly normal bilaterally and moist oral mucous membranes Mouth: oral and palatal mucosa normal Eyes PERRL and EOMs intact bilaterally Neck no lymphadenopathy, supple and no JVD Lymph Lymphatic: no lymphadenopathy noted and no lymphedema noted Resp normal respiratory effort, normal air movement and clear to auscultation bilaterally Cardio regular rate, regular rhythm, S1 normal heart sound, S2 normal heart sound and no murmurs GI normal to inspection, nondistended, normoactive bowel sounds, soft to palpation, non-tender and non-distended Extremity normal to inspection, full ROM, normal capillary refill, no clubbing, cyanosis or edema and no calf tenderness Skin no rashes or lesions noted General Skin Exam: no breakdown and turgor normal Neuro oriented x3, CN's II-XII intact bilaterally, moves all extremities and no focal motor deficits Motor Exam: strength 5/5 throughout and general weakness Psych thought process normal and cooperative Appearance: appropriate Weight / BMI Weight Weight: 166 lb 10.711 oz Body Mass Index (BMI) 24.6 ABG / Lab / Microbiology Data 10/18/23 04:45 10/18/23 04:45 Laboratory: Laboratory Results - last 24 hr 10/17/23 10:35: Sodium 132 L, Potassium 4.8, Chloride 98, Carbon Dioxide 16.0 L, Anion Gap 18 H, BUN 22 H, Creatinine 1.18 H, Estim Creat Clear Calc 73.52, Est GFR (MDRD) Af Amer 70, Est GFR (MDRD) Non-Af 58 L, BUN/Creatinine Ratio 18.6, Glucose 534 H*, Calcium 9.1 10/17/23 12:41: POC Glucose 304 H 10/17/23 13:00: Sodium 137, Potassium 4.1, Chloride 107, Carbon Dioxide 19.0 L, Anion Gap 11, BUN 20 H, Creatinine 0.98, Estim Creat Clear Calc 85.44, Est GFR (MDRD) Af Amer 86, Est GFR (MDRD) Non-Af 71, BUN/Creatinine Ratio 20.4 H, Glucose 303 H, Calcium 8.3 L 10/17/23 14:00: POC Glucose 241 H 10/17/23 14:55: POC Glucose 217 H 10/17/23 16:11: POC Glucose 207 H 10/17/23 16:20: Sodium 138, Potassium 4.3, Chloride 109 H, Carbon Dioxide 22.0, Anion Gap 7, BUN 20 H, Creatinine 0.84, Estim Creat Clear Calc 103.27, Est GFR (MDRD) Af Amer 103, Est GFR (MDRD) Non-Af 85, BUN/Creatinine Ratio 23.8 H, Glucose 261 H, Calcium 8.0 L 10/17/23 17:07: POC Glucose 239 H 10/17/23 21:19: POC Glucose 293 H 10/18/23 04:45: WBC 8.8, RBC 4.07 L, Hgb 12.0, Hct 36.4 L, MCV 89.4, MCH 29.5, MCHC 33.0, RDW Std Deviation 43.0, RDW Coeff of Joyce 13.2, Plt Count 111 L, MPV 12.1 H, Immature Gran % (Auto) 0.700, Neut % (Auto) 59.5, Lymph % (Auto) 32.5, Wilson % (Auto) 6.0, Eos % (Auto) 1.0, Baso % (Auto) 0.3, Absolute Neuts (auto) 5.3, Absolute Lymphs (auto) 2.87, Nucleated RBC % 0, Sodium 138, Potassium 4.1, Chloride 110 H, Carbon Dioxide 25.0, Anion Gap 3 L, BUN 16, Creatinine 0.67, Estim Creat Clear Calc 129.48, Est GFR (MDRD) Af Amer 135, Est GFR (MDRD) Non-Af 111, BUN/Creatinine Ratio 24.0 H, Glucose 227 H, Calcium 7.6 L D/C Instructions Discharge Diet: 1800 Calorie Control Diet Discharge Activity: Return to Normal Activity Weight Bearing Status: Weight bearing as tolerated Call your doctor if you observe: Fever of 101 or Higher, Shortness of breath, Dizziness, Swelling in the ankles and Chest pain Meaningful Use Info Meaningful Use Diagnoses (Choose all that apply): None applicable Discharge Plan Admission Admit Date/Time: 10/17/23 11:28 Primary Reason for Your Visit: DKA Attending Provider: Vita Jefferson Primary Care Provider: FUNMILAYO SMITH Instructions Patient Instructions: Ketoacidosis Ch Additional Instructions / Restrictions: follow up with your environmental solutions engineer and crna SIRI. Discharge Orders/Prescriptions Prescriptions: Continued insulin lispro [Humalog U-100 Insulin] 100 unit/mL solution See Rx Instructions .ROUTE .COMPLEX Patient Comments: use IN THE INSULIN PUMP FOR A TOTAL DAILY DOSE OF 100 UNITS Rx Instructions: 100 U VIA PUMP DAILY; BASAL RATE - 1.8 UNITS/HOUR BOLUS: CARB RATIO- 1 UNIT /10 GRAMS OF CARBS CORRECTION- 1 UNIT FOR EVERY 30MG/DL BLOOD GLUCOSE OVER 120 (DME) pen needle, diabetic [Ultra-Thin II Ins Pen [place]] 29 gauge x 1/2 needle See Rx Instructions .Route Qty: 100 0RF Rx Instructions: As directed prochlorperazine maleate [Compazine] 10 mg tablet 10 mg PO TID PRN (Reason: nausea and vomiting) Qty: 20 0RF Referrals / Follow Up: FUNMILAYO SMITH [Other] - Within 1 Week FUNMILAYO SMITH [Other] Disposition Disposition (needs filled in before D/C Order can be placed): Home, Self Care Charges/Coding Visit Charges Inpatient E&M: 15782 Disch Hosp >30min
--- NOTE | 2023-10-18 10:54 | PCM.DC ---
Discharge Instructions Diet Discharge Diet: Low fat / Low cholesterol Activity Discharge Activity: Return to Normal Activity Weight Bearing Status: Weight bearing as tolerated Dressing / Incision Call your doctor if you observe: Fever of 101 or Higher, Shortness of breath, Dizziness, Swelling in the ankles and Chest pain Follow Up Care Test Results: Test results from this visit will be discussed in further detail at your follow-up appointment, if applicable. Discharge Plan Admission Admit Date/Time: 10/17/23 11:28 Primary Reason for Your Visit: DKA Attending Provider: Vita Jefferson Primary Care Provider: FUNMILAYO SMITH Instructions Patient Instructions: Ketoacidosis Ch Additional Instructions / Restrictions: follow up with your lumber carrier and electrotype finisher SIRI. Discharge Orders/Prescriptions Prescriptions: Continued insulin lispro [Humalog U-100 Insulin] 100 unit/mL solution See Rx Instructions .ROUTE .COMPLEX Patient Comments: use IN THE INSULIN PUMP FOR A TOTAL DAILY DOSE OF 100 UNITS Rx Instructions: 100 U VIA PUMP DAILY; BASAL RATE - 1.8 UNITS/HOUR BOLUS: CARB RATIO- 1 UNIT /10 GRAMS OF CARBS CORRECTION- 1 UNIT FOR EVERY 30MG/DL BLOOD GLUCOSE OVER 120 (DME) pen needle, diabetic [Ultra-Thin II Ins Pen [place]] 29 gauge x 1/2 needle See Rx Instructions .Route Qty: 100 0RF Rx Instructions: As directed prochlorperazine maleate [Compazine] 10 mg tablet 10 mg PO TID PRN (Reason: nausea and vomiting) Qty: 20 0RF Referrals / Follow Up: FUNMILAYO SMITH [Other] - Within 1 Week FUNMILAYO SMITH [Other] Disposition Disposition (needs filled in before D/C Order can be placed): Home, Self Care
--- NOTE | 2023-10-18 11:21 | PHA.DC.MR.R ---
Pharmacy IN Med Reconciliation Pharmacy Service has performed discharge medication reconciliation for this patient. The patient's discharge medication list was reviewed for discrepancies and discrepancies were resolved. Medications at Discharge Home Medications insulin lispro 100 unit/mL subcutaneous solution (Humalog U-100 Insulin) See Rx Instructions .Route .COMPLEX 04/27/23 pen needle, diabetic 29 gauge x 1/2 (Ultra-Thin II Insulin Pen [place]) #100 ea 08/10/23 prochlorperazine maleate 10 mg tablet (Compazine) 10 mg PO TID PRN nausea and vomiting #20 tabs 09/25/23
== END 2023-10-18 12:11 | disposition home or self-care (01) | DRG 639 ==
LOC: ED 11:31 → ICU 12:09
PROVIDERS: Admitting Provider Student in an Organized Health Care Education/Training Program; Emergency Provider Emergency Medicine; Visit Provider Student in an Organized Health Care Education/Training Program
DX: E10.10 Type 1 diabetes mellitus with ketoacidosis without coma (principal); K31.84 Gastroparesis; E86.0 Dehydration; E10.43 Type 1 diabetes mellitus with diabetic autonomic (poly)neuropathy; I95.9 Hypotension, unspecified; Z79.4 Long term (current) use of insulin; R11.2 Nausea with vomiting, unspecified; F17.290 Nicotine dependence, other tobacco product, uncomplicated; R00.0 Tachycardia, unspecified; Z79.899 Other long term (current) drug therapy; Z96.41 Presence of insulin pump (external) (internal)
CPT/HCPCS: 36591; 80048; 82009; 82962; 85025; 93005; 97802; 99283; J7030; A4216; J7799

== ENCOUNTER 2023-10-25 16:22 | Emergency (ER) | payer MEDICARE, MEDICAID, SELFPAY ==
[2023-10-25 16:24] VITALS: BP 128/79; PULSE 94; RESP 18; TEMP 36.8; O2SAT 98
--- NOTE | 2023-10-25 17:04 | EX.ED.VIS.PS ---
HPI HPI - Psych History of Present Illness Chief Complaint: Mental Health Informant: patient Narrative Narrative: Patient presents requesting help with psychiatric problems. She states that for a long time she has had intermittent thoughts of wanting to hurt herself. She states deep down she knows she does not want to hurt herself. Since Monday her thoughts have been constant she is having trouble sleeping. She states she keeps replaying thoughts in her head but is not here voices. She is not currently on any psychiatric medications as she has had bad side effects from them in the past. She was recently admitted for DKA but states her blood sugars have been under good control recently. [facility] Medical History Anxiety Borderline personality disorder Depression Diabetic gastroparesis Intractable vomiting Kidney disease Kidney stones Marfan syndrome PTSD (post-traumatic stress disorder) Smoker Substance abuse Type 1 diabetes Home Medications insulin lispro 100 unit/mL subcutaneous solution (Humalog U-100 Insulin) See Rx Instructions .Route .COMPLEX 04/27/23 [History Last Taken 09/20/23] pen needle, diabetic 29 gauge x 1/2 (Ultra-Thin II Insulin Pen [place]) #100 ea 08/10/23 [Rx Last Taken Unknown] prochlorperazine maleate 10 mg tablet (Compazine) 10 mg PO TID PRN nausea and vomiting #20 tabs 09/25/23 [Rx Last Taken Unknown] lorazepam 0.5 mg tablet (Ativan) 0.5 mg PO BID PRN anxiety #10 tabs 10/25/23 [Rx Last Taken Unknown] metoclopramide HCl 5 mg tablet 10 mg PO Q6H PRN nausea and vomiting 10/25/23 [History Last Taken Unknown] pantoprazole 40 mg tablet,delayed release 40 mg PO DAILY PRN gastric reflux 10/25/23 [History Last Taken Unknown] promethazine 25 mg tablet 25 mg PO Q6H PRN nausea and vomiting 10/25/23 [History Last Taken 10/24/23] Allergy/AdvReac Type Severity Reaction Status Date / Time adhesive tape Allergy Intermediate Rash Verified 10/25/23 16:27 cephalexin [From Keflex] Allergy Intermediate Other Verified 10/25/23 16:27 morphine Allergy Intermediate Rash Verified 10/25/23 16:27 oxycodone [From Percocet] Allergy Intermediate Rash Verified 10/25/23 16:27 ondansetron AdvReac I BLACK Verified 10/25/23 16:27 OUT AND LOSE CONTROL OF MY BLADDER Surgical History H/O aortic root repair History of loop recorder Hx of appendectomy Hx of eye surgery Social History Smoking Status: Current some day smoker tobacco type: e-cigarettes substance use type: marijuana ROS ROS ED Constitutional Constitutional ED: Denies chills or fever(s) Eyes Eyes: Denies discharge from eye(s) ENT ENT ED: Denies discharge from eye(s), rhinorrhea or sore throat Cardiovascular Cardiovascular: Denies chest pain or palpitations Respiratory/Chest Respiratory/Chest: Denies cough or dyspnea Gastrointestinal Gastrointestinal: Denies abdominal pain, diarrhea, nausea or vomiting Genitourinary Genitourinary ED: Denies difficulty urinating or dysuria Musculoskeletal Musculoskeletal: Denies back pain or extremity pain Integumentary Denies Abrasions or rash Neurologic Neurologic: Denies headache(s) or weakness Psychiatric Psychiatric: Reports anxiety, depression and suicidal ideation Allergic/Immunologic Allergic/Immunologic ED: Denies lip swelling or urticaria EXAM Physical Exam Const Vital Signs: 10/25/23 16:24 10/25/23 19:31 Temperature 98.2 F Temperature Source Temporal Pulse Rate 94 Respiratory Rate 18 14 Blood Pressure 128/79 H Blood Pressure Mean 95 Pulse Ox 98 Oxygen Delivery Method Room Air Room Air Positive well nourished and well developed General Appearance ED: well developed HEENT Reports moist mucous membranes Eyes PERRL and EOMs intact bilaterally Resp normal respiratory effort and clear to auscultation bilaterally Cardio Rate: regular rate Rhythm: regular rhythm GI non-tender Palpation: soft Neuro oriented x3 and no sensory deficits noted Motor Exam: strength 5/5 throughout Psych cooperative Appearance: disheveled Activity / Motor Behavior: appropriate eye contact Mood & Affect: anxious and tearful MDM MDM MDM Narrative Medical decision making narrative: Patient given p.o. Ativan deal with anxiety. Lab work for psychiatric clearance obtained. History & Record Review Discussion w/independent historian: Patient Lab Data Attestation: I reviewed the patient's lab results. Labs: Laboratory Results - last 24 hr 10/25/23 10/25/23 17:15 17:57 WBC 12.8 H RBC 4.99 Hgb 14.3 Hct 44.7 MCV 89.6 MCH 28.7 MCHC 32.0 RDW Std Deviation 46.0 H RDW Coeff of Joyce 13.9 Plt Count 171 MPV 11.9 Immature Gran % (Auto) 0.900 Neut % (Auto) 76.5 H Lymph % (Auto) 17.4 L Sanders % (Auto) 3.7 Eos % (Auto) 0.7 Baso % (Auto) 0.8 Absolute Neuts (auto) 9.8 H Absolute Lymphs (auto) 2.23 Nucleated RBC % 0 Sodium 137 Potassium 4.3 Chloride 106 Carbon Dioxide 23.0 Anion Gap 8 BUN 17 Creatinine 0.79 Estim Creat Clear Calc 109.81 Est GFR (MDRD) Af Amer 110 Est GFR (MDRD) Non-Af 91 BUN/Creatinine Ratio 21.5 H Glucose 255 H Calcium 9.0 Serum , Qual NEGATIVE Urine Opiates Screen NEGATIVE Urine Methadone Screen NEGATIVE Ur Barbiturates Screen NEGATIVE Ur Phencyclidine Scrn NEGATIVE Ur Amphetamines Screen NEGATIVE MDMA (Ecstasy) Screen NEGATIVE U Benzodiazepines Scrn NEGATIVE Urine Cocaine Screen NEGATIVE U Cannabinoids Screen POSITIVE H Ur Drug Screen Comment Ethyl Alcohol < 3.0 Treatment and Re-Evaluation Narrative: CBC was a white count of 12.8 with 76% neutrophils. Hemoglobin normal at 14.3. Chemistry studies unremarkable other than a glucose of 255. test negative. EtOH is negative. Tox screen is positive only for cannabinoids. Patient was seen and evaluated by crisis. She has thoughts of cutting herself but denies any intention of actually killing herself or acting on these thoughts. We will develop a safety plan for her. She does state that the Ativan helped her here. I will write her a short prescription for Ativan 0.5 mg tabs. Return instructions given. Discharge Plan Triage Chief Complaint: Mental Health ED Provider: Lin Johansen Dx/Rx/DC Orders Clinical Impression: Anxiety Instructions: ED Anxiety Reaction Prescriptions: New lorazepam [Ativan] 0.5 mg tablet 0.5 mg PO BID PRN (Reason: anxiety) Qty: 10 0RF No Action insulin lispro [Humalog U-100 Insulin] 100 unit/mL solution See Rx Instructions .ROUTE .COMPLEX Patient Comments: use IN THE INSULIN PUMP FOR A TOTAL DAILY DOSE OF 100 UNITS Rx Instructions: 100 U VIA PUMP DAILY; BASAL RATE - 1.8 UNITS/HOUR BOLUS: CARB RATIO- 1 UNIT /10 GRAMS OF CARBS CORRECTION- 1 UNIT FOR EVERY 30MG/DL BLOOD GLUCOSE OVER 120 (DME) pen needle, diabetic [Ultra-Thin II Ins Pen [place]] 29 gauge x 1/2 needle See Rx Instructions .Route Qty: 100 0RF Rx Instructions: As directed prochlorperazine maleate [Compazine] 10 mg tablet 10 mg PO TID PRN (Reason: nausea and vomiting) Qty: 20 0RF metoclopramide HCl 5 mg tablet 10 mg PO Q6H PRN (Reason: nausea and vomiting) Patient Comments: TAKE 2 TABLETS BY MOUTH EVERY 6 HOURS promethazine 25 mg tablet 25 mg PO Q6H PRN (Reason: nausea and vomiting) Patient Comments: TAKE 1 TABLET BY MOUTH EVERY 6 HOURS NEEDED pantoprazole 40 mg tablet,delayed release (DR/EC) 40 mg PO DAILY PRN (Reason: gastric reflux) Patient Comments: TAKE 1 TABLET BY MOUTH DAILY Primary Care Provider: Carlos Hollis,Out of Referrals: Counseling,Center [Group of Physicians] - As soon as possible Carlos Hollis,Out of [Primary Care Provider] - Disposition Disposition: Home, Self Care
--- NOTE | 2023-10-25 17:07 | ED.RN ---
1707: spoke with Kathleen in lab, they are coming to draw blood work on patient due to failed attempts by ER staff.
[2023-10-25] MEDS: LORazepam 1 MG Tablet PO (17:11)
[2023-10-25 17:12] VITALS: BMI 23.3
--- NOTE | 2023-10-25 17:13 | ED.RN ---
PER DR. MCCORMICK VERBAL ORDER, PT IS MODERATE RISK, HAS THOUGHTS OF SELF HARM BUT DOES NOT HAVE A PLAN. PER DR. MCCORMICK NO SITTER INDICATED AT THIS TIME.
[2023-10-25 18:04] LABS: Absolute Lymphocyte Count 2.23 X10^3/uL (0.83-4.51); Absolute Neutrophil Count 9.8 X10^3/uL (2.0-7.7); Basophil% 0.8 % (0-1); Eosinophil# 0.09 X10^3/uL; Eosinophils% 0.7 % (0-5); Hematocrit 44.7 % (37-47); Hemoglobin 14.3 g/dL (12.0-15.0); Lymphocyte # 2.23 X10^3/ul (0.83-4.51); Lymphocyte % 17.4 % (19-41); Mean Corpuscular Hgb 28.7 pg (27.0-32.0); Mean Corpuscular Volume 89.6 fL (81-99); Mean Platelet Vol. 11.9 fl (6.2-12.0); Monocyte# 0.47 X10^3/uL; Monocyte% 3.7 % (0-10); NRBC Flagged by Analyzer 0 % (0-5); Neutrophil # 9.83 X10^3/uL (2.7-7.7); Neutrophil % 76.5 % (47-70); Platelet Count 171 K/mm3 (150-450); RBC Distribution Width CV 13.9 % (11.6-14.6); Red Blood Count 4.99 M/mm3 (4.2-5.4); White Blood Count 12.8 K/mm3 (4.4-11.0)
[2023-10-25 18:13] LABS: Internal QC Validated? YES +Cl - CLEAR BKGD; Pregnancy, Serum, hCG Quali. NEGATIVE Negative
[2023-10-25 18:17] LABS: Alcohol, Blood (Medical)-Serum < 3.0 mg/dL
[2023-10-25 18:22] LABS: Anion Gap 8 (5-15); BUN 17 mg/dL (7-18); BUN/Creat Ratio 21.5 RATIO (10-20); Chloride 106 mmol/L (98-107); Creatinine, Serum 0.79 mg/dL (0.55-1.02); EST Glomerular Filtration Rate 91 mL/min (>60); Est Glom Filt Rate - Afr Amer 110 mL/min (>60); Estimated Creatinine Clearance 109.81 ml/min; Glucose 255 mg/dL (74-106); Potassium 4.3 mmol/L (3.5-5.1); Sodium Level 137 mmol/L (136-145)
[2023-10-25 18:26] LABS: Amphetamine Urine VISTA NEGATIVE (<1000 ng/mL); Barbiturate Urine VISTA NEGATIVE (< 200 ng/mL); Benzodiazepine Urine VISTA NEGATIVE (< 200 ng/mL); Cocaine Urine VISTA NEGATIVE (< 300 ng/mL); Ecstacy Urine VISTA NEGATIVE (< 500 ng/mL); Methadone Urine VISTA NEGATIVE (< 300 ng/mL); PCP Urine VISTA NEGATIVE (< 25 ng/mL); THC Urine VISTA POSITIVE (< 50 ng/mL); Vista UDS pH Range 5
--- NOTE | 2023-10-25 19:09 | NURSING ---
CALLED [facility] AT 1900 AND FAXED CHART
--- NOTE | 2023-10-25 19:16 | ED.RN ---
[facility] REPORTS TO THIS RN THAT THEY WILL BE IN TO SEE THE PATIENT IN AN HOUR.
[2023-10-25 19:31] VITALS: RESP 14
[2023-10-25 21:51] LABS: Bedside Glucose 60 mg/dL (74-106)
[2023-10-25 22:04] VITALS: BP 117/64; PULSE 77; RESP 19; TEMP 36.3; O2SAT 100
== END 2023-10-25 22:05 | disposition home or self-care (01) ==
PROVIDERS: Emergency Provider Emergency Medicine; Visit Provider Emergency Medicine
DX: F41.9 Anxiety disorder, unspecified (principal); Z79.4 Long term (current) use of insulin; E10.9 Type 1 diabetes mellitus without complications; F17.290 Nicotine dependence, other tobacco product, uncomplicated; Z79.899 Other long term (current) drug therapy
CPT/HCPCS: 36415; 80048; 80307; 80320; 82962; 84703; 85025; 99282; G0480

== ENCOUNTER 2023-12-07 17:28 | Emergency (ER) | payer MEDICARE, MEDICAID, SELFPAY ==
[2023-12-07 17:29] VITALS: BP 130/70; PULSE 73; RESP 15; TEMP 36.2; O2SAT 97
[2023-12-07 17:30] VITALS: BP 130/70; PULSE 68; RESP 15; TEMP 36.2; O2SAT 98
--- NOTE | 2023-12-07 17:54 | ED.RN ---
PT STATES HER BGL IS 323 AND COMING DOWN SO SHE IS GOING HOME
== END 2023-12-07 17:50 | disposition left against medical advice (07) ==
LOC: ED 17:55
DX: R11.10 Vomiting, unspecified (principal); Z53.21 Procedure and treatment not carried out due to patient leaving prior to being seen by health care provider

== ENCOUNTER 2024-02-07 12:39 | Inpatient (IN) | payer MEDICARE, MEDICAID, SELFPAY ==
[2024-02-07] VITALS (13 sets, daily range): BP systolic 97–140; BP diastolic 46–83; PULSE 64–106; RESP 14–22; TEMP 36.5–37.1; O2SAT 95–100; BMI 24.5; BMI 23.9
--- NOTE | 2024-02-07 12:50 | EKG12_ITS ---
Test Reason : Blood Pressure : / mmHG Vent. Rate : 098 BPM Atrial Rate : 098 BPM P-R Int : 124 ms QRS Dur : 078 ms QT Int : 358 ms P-R-T Axes : 061 066 065 degrees QTc Int : 457 ms Normal sinus rhythm Possible Left atrial enlargement Borderline ECG Confirmed by TOMASA LOCKE, SAMUEL ([id number]), news videotape editor QUENTIN ESPAÑA ([id number]) on 02/12/2024 11:43:12 AM Referred By: [facility] Confirmed By:SAMUEL RANDOLPH MD
[2024-02-07] MEDS: 0.9% Normal Saline (1000mL) 1,000 ML 999 ML IV (12:59)
[2024-02-07 13:01] LABS: Absolute Lymphocyte Count 2.08 X10^3/uL (0.83-4.51); Absolute Neutrophil Count 11.1 X10^3/uL (2.0-7.7); Basophil# 0.05 X10^3/uL; Basophil% 0.4 % (0-1); Eosinophil# 0.04 X10^3/uL; Eosinophils% 0.3 % (0-5); Hematocrit 46.1 % (37-47); Hemoglobin 15.3 g/dL (12.0-15.0); Lymphocyte # 2.08 X10^3/ul (0.83-4.51); Mean Corp Hgb Conc 33.2 g/dL (32-36); Mean Corpuscular Hgb 29.8 pg (27.0-32.0); Mean Corpuscular Volume 89.7 fL (81-99); Monocyte# 0.58 X10^3/uL; Monocyte% 4.2 % (0-10); NRBC Flagged by Analyzer 0 % (0-5); Neutrophil # 11.08 X10^3/uL (2.7-7.7); Neutrophil % 79.7 % (47-70); Platelet Count 139 K/mm3 (150-450); RBC Distribution Width CV 12.8 % (11.6-14.6); RBC Distribution Width SD 42.2 fl (35.1-43.9); Red Blood Count 5.14 M/mm3 (4.2-5.4); White Blood Count 13.9 K/mm3 (4.4-11.0)
[2024-02-07 13:18] LABS: Internal QC Validated? YES +Cl - CLEAR BKGD; Pregnancy, Serum, hCG Quali. NEGATIVE Negative
[2024-02-07 13:28] LABS: ALB/GLOB Ratio 1.3 RATIO (0.9-2.4); AST(SGOT) 11 U/L (15-37); Alanine Aminotransfer ALT/SGPT 20 U/L (13-56); Albumin, Serum 4.3 g/dL (3.2-5.0); Alkaline Phosphatase 94 U/L (45-117); Anion Gap 13 (5-15); BUN 18 mg/dL (7-18); BUN/Creat Ratio 16.1 RATIO (10-20); Calcium,Total 9.9 mg/dL (8.5-10.1); Chloride 93 mmol/L (98-107); Creatinine, Serum 1.12 mg/dL (0.55-1.02); EST Glomerular Filtration Rate 61 mL/min (>60); Est Glom Filt Rate - Afr Amer 74 mL/min (>60); Estimated Creatinine Clearance 77.45 ml/min; Globulin 3.3 g/dL (2.2-4.2); Glucose 640 mg/dL (74-106); Potassium 4.2 mmol/L (3.5-5.1); Protein, Total 7.6 g/dL (6.4-8.2); Sodium Level 129 mmol/L (136-145)
[2024-02-07 13:31] LABS: Blood Gas Specimen Type VEN; O2 Delivery Device Not entered; SITE Not entered; VBG BASE EXCESS -4 mmol/L (-1.0-3.5); VBG Bicarbonate 21 mmol/L (22-26); VBG PO2 54 mmHg (25-40); VBG SO2 87 % (50-70); VBG TCO2 22 mmol/L (23-33); VBG pCO2 35.6 mmHg (41-51); VBG pH 7.37 (7.32-7.42)
--- NOTE | 2024-02-07 14:47 | EDS_ITS ---
HPI History of Present Illness Chief Complaint: Hyperglycemia Narrative Narrative: 28-year-old female past medical history of diabetes with insulin pump running at a basal rate of 1.5 units/h presents with elevated blood sugars. She states she has history of gastroparesis, and was feeling well yesterday. Although she had nausea and vomiting, that is usually normal for her with her gastroparesis. She had good control of her sugars. However, when she awoke this morning, she noticed that her blood sugar readings were high. She bolused herself 20 units of insulin, and it only read into the 500s. Her blood sugar then continued to elevate. She denies any fevers or chills, no other symptoms, but is concerned because of her elevated sugars. She states she was last in DKA and admitted to the hospital in September of this year this was almost 4 months ago. [facility] Medical History Diabetic gastroparesis Substance abuse Kidney stones Kidney disease Smoker Intractable vomiting Type 1 diabetes Marfan syndrome Depression Anxiety PTSD (post-traumatic stress disorder) Borderline personality disorder Home Medications ?Medication ?Instructions ?Recorded ?Last Taken ?Type insulin lispro 100 unit/mL See Rx Instructions .Route .COMPLEX 04/27/23 09/20/23 History subcutaneous solution (Humalog U-100 Insulin) pen needle, diabetic 29 gauge x #100 ea 08/10/23 Unknown Rx 1/2 (Ultra-Thin II Insulin Pen [place]) lorazepam 0.5 mg tablet (Ativan) 0.5 mg PO BID PRN anxiety #10 tabs 10/25/23 Unknown Rx promethazine 25 mg tablet 25 mg PO Q6H PRN nausea and 10/25/23 10/24/23 History vomiting risankizumab-rzaa 150 mg/mL mg subcut 02/07/24 Unknown History subcutaneous pen injector (Skyrizi) Allergy/AdvReac Type Severity Reaction Status Date / Time adhesive tape Allergy Intermediate Rash Verified 02/07/24 12:46 cephalexin (From Keflex) Allergy Intermediate Other Verified 02/07/24 12:46 morphine Allergy Intermediate Rash Verified 02/07/24 12:46 oxycodone (From Percocet) Allergy Intermediate Rash Verified 02/07/24 12:46 ondansetron AdvReac I BLACK Verified 02/07/24 12:46 OUT AND LOSE CONTROL OF MY BLADDER Surgical History History of loop recorder Hx of appendectomy Hx of eye surgery H/O aortic root repair Social History Smoking Status: Current some day smoker tobacco type: e-cigarettes substance use type: marijuana ROS ROS ED ROS Narrative Constitutional: No fever, no chills. HEENT: No sore throat. No neck pain. No loss of vision. No rhinorrhea. Cardiovascular: No chest pain. No palpitations. No pedal edema. Respiratory: No cough, no shortness of breath. Abdominal: No abdominal pain. Nausea and vomiting yesterday. History of gastroparesis. Genitourinary: No dysuria. No hematuria. Musculoskeletal: No myalgias. No arthralgias. Neurologic: No headaches. No dizziness. No lightheadedness. Skin: No rash. No change in color. Psychiatric: No depression. No anxiety. EXAM Physical Exam Narrative Exam Narrative: Afebrile. Vital signs noted. HEENT: Normocephalic. Atraumatic. PERRL, EOMI. Neck soft and supple. No point tenderness or step off. Cardiovascular: Positive tachycardia no murmurs, rubs, or gallops appreciated. Respiratory: No tachypnea. Lungs clear to auscultation bilaterally. Gastrointestinal: Abdomen soft, nontender, with normoactive bowel sounds. No rebound or guarding. Neurological: Awake. Alert. Nonfocal, nonlateralizing. Skin: No rash. Normal color. No pallor. Musculoskeletal: No pedal edema. Full range of motion extremities. Const Vital Signs: 02/07/24 12:40 02/07/24 12:46 02/07/24 13:40 Temperature 97.7 F L Temperature Source Temporal Pulse Rate 106 H 74 Respiratory Rate 20 H 18 Respiratory Effort Normal Respiratory Pattern Normal Blood Pressure 140/83 H 110/65 Blood Pressure Mean 102 80 Pulse Ox 96 97 Oxygen Delivery Method Room Air 02/07/24 14:00 Temperature Temperature Source Pulse Rate 70 Respiratory Rate 18 Respiratory Effort Respiratory Pattern Blood Pressure 116/60 Blood Pressure Mean 78 Pulse Ox 97 Oxygen Delivery Method MDM MDM MDM Narrative Medical decision making narrative: Initially, concern is for diabetic ketoacidosis versus hyperglycemia. Comprehensive workup was pursued. Her Mediport was accessed and she was bolused normal saline 1 L intravenously. CBC shows elevated white count of 13.9 which I think is nonspecific, hemoglobin slightly hemoconcentrated at 15.3 with hematocrit 46.1, thrombocytopenia present with a platelet count of 139 which in review of prior laboratory work is chronic for her. Sodium is low at 129 but I think this is secondary to her glucose elevated 640. Anion gap is normal at 13 with chloride low at 93. Potassium is normal at 4.2. AST is low at 11. Serum is negative and her acetone level only shows a small amount, but she has a closed anion gap so I do not feel that she is in DKA. Will recheck her sugar after the IV bolus, but I do think that she is slowly needs to have her sugars come down. I will defer insulin drip until after speaking with the hospitalist. Patient requested something for nausea but she has an allergy to Zofran. She will be given Reglan or Compazine. In discussion with Dr. Garcia, given her elevated blood sugars, that her labile, was prefer that she be started on an insulin drip, and admitted to the ICU initially and she could be transferred out soon as there is better control. Additionally, in looking at her venous blood gas, she is not acidotic with a pH of 7.37. I feel she can be admitted in stable condition. She is being admitted to the ICU because she is being started on an insulin drip. Disposition is admit in stable condition. History & Record Review Discussion w/independent historian: Patient Lab Data Attestation: I reviewed the patient's lab results. Labs: Laboratory Results - last 24 hr 02/07/24 12:00 WBC 13.9 H RBC 5.14 Hgb 15.3 H Hct 46.1 MCV 89.7 MCH 29.8 MCHC 33.2 RDW Std Deviation 42.2 RDW Coeff of Joyce 12.8 Plt Count 139 L MPV 14.0 H Immature Gran % (Auto) 0.400 Neut % (Auto) 79.7 H Lymph % (Auto) 15.0 L [place] % (Auto) 4.2 Eos % (Auto) 0.3 Baso % (Auto) 0.4 Absolute Neuts (auto) 11.1 H Absolute Lymphs (auto) 2.08 Nucleated RBC % 0 Sodium 129 L Potassium 4.2 Chloride 93 L Carbon Dioxide 23.0 Anion Gap 13 BUN 18 Creatinine 1.12 H Estim Creat Clear Calc 77.45 Est GFR (MDRD) Af Amer 74 Est GFR (MDRD) Non-Af 61 BUN/Creatinine Ratio 16.1 Glucose 640 H* Calcium 9.9 Total Bilirubin 1.00 AST 11 L ALT 20 Alkaline Phosphatase 94 Total Protein 7.6 Albumin 4.3 Globulin 3.3 Albumin/Globulin Ratio 1.3 Serum , Qual NEGATIVE Acetone Level SMALL H ABG Data ABG results: ABG 02/07/24 13:27 Specimen Type ISABELLE Sample Site Not entered VBG pH 7.37 VBG pO2 54 H VBG HCO3 21 L VBG Total CO2 22 L VBG O2 Sat (Calc) 87 H VBG Base Excess -4 L POC Mix VBG pCO2 Pt Tmp 35.6 L O2 Delivery Device Not entered Management Discussion w/another healthcare provider: Hospitalist (Dr. Garcia) Critical Care Time Critical Care Time: Yes Critical care time (excluding procedures): 30-74 minutes (31), Including time spent:, Discussing w/Patient &/or Family/Track Repairer, Discussing w/Consultants, Arranging Admission or Transfer and Performing Direct Patient Care at Bedside Discharge Plan Triage Chief Complaint: Hyperglycemia ED Provider: Juan Marquez Dx/Rx/DC Orders Prescriptions: No Action insulin lispro [Humalog U-100 Insulin] 100 unit/mL solution See Rx Instructions .ROUTE .COMPLEX Patient Comments: use IN THE INSULIN PUMP FOR A TOTAL DAILY DOSE OF 100 UNITS Rx Instructions: 100 U VIA PUMP DAILY; BASAL RATE - 1.8 UNITS/HOUR BOLUS: CARB RATIO- 1 UNIT /10 GRAMS OF CARBS CORRECTION- 1 UNIT FOR EVERY 30MG/DL BLOOD GLUCOSE OVER 120 (DME) pen needle, diabetic [Ultra-Thin II Ins Pen [place]] 29 gauge x 1/2 needle See Rx Instructions .Route Qty: 100 0RF Rx Instructions: As directed promethazine 25 mg tablet 25 mg PO Q6H PRN (Reason: nausea and vomiting) Patient Comments: TAKE 1 TABLET BY MOUTH EVERY 6 HOURS NEEDED lorazepam [Ativan] 0.5 mg tablet 0.5 mg PO BID PRN (Reason: anxiety) Qty: 10 0RF Skyrizi 150 mg/mL pen injector subcut Primary Care Provider: Care Physician,No Primary Referrals: Care Physician,No Primary [Primary Care Provider] - Print Language: Australian
--- NOTE | 2024-02-07 14:47 | PCM.HP.STD ---
HPI - General HPI Narrative THEODORE VILLA, is a 28 F with history of type 1 diabetes mellitus [on insulin pump, managed at the [facility], diagnosed at the age of 14 years], diabetic gastroparesis, Marfan syndrome, prior aortic root repair, who presents to the ED with concerns regarding hyperglycemia, associated polyuria and polydipsia. She noted this morning her blood sugars were more than 600 and she had 6 episodes of nocturia last night. Given her symptoms she presented to the ED. No associated fevers, burning in micturition, changes in bowel habits. She has been on her insulin pump consistently and does not note any recent changes in her medications. In the ED, Blood pressure 116/60 pulse 70 respiratory rate 18 WBC 13.9, hemoglobin 15.3, platelet 139, pH 7.37, pO2 54, bicarb 21, AST 11 ALT of 20 few acetones, normal anion gap, hyponatremia present. [facility] Medical History Anxiety Borderline personality disorder Depression Diabetic gastroparesis Intractable vomiting Kidney disease Kidney stones Marfan syndrome PTSD (post-traumatic stress disorder) Smoker Substance abuse Type 1 diabetes Home Medications ?Medication ?Instructions ?Recorded ?Last Taken ?Type insulin lispro 100 unit/mL See Rx Instructions .Route .COMPLEX 04/27/23 09/20/23 History subcutaneous solution (Humalog U-100 Insulin) pen needle, diabetic 29 gauge x #100 ea 08/10/23 Unknown Rx 1/2 (Ultra-Thin II Insulin Pen [place]) lorazepam 0.5 mg tablet (Ativan) 0.5 mg PO BID PRN anxiety #10 tabs 10/25/23 Unknown Rx promethazine 25 mg tablet 25 mg PO Q6H PRN nausea and 10/25/23 10/24/23 History vomiting risankizumab-rzaa 150 mg/mL mg subcut 02/07/24 Unknown History subcutaneous pen injector (Skyrizi) Allergy/AdvReac Type Severity Reaction Status Date / Time adhesive tape Allergy Intermediate Rash Verified 02/07/24 12:46 cephalexin (From Keflex) Allergy Intermediate Other Verified 02/07/24 12:46 morphine Allergy Intermediate Rash Verified 02/07/24 12:46 oxycodone (From Percocet) Allergy Intermediate Rash Verified 02/07/24 12:46 ondansetron AdvReac I BLACK Verified 02/07/24 12:46 OUT AND LOSE CONTROL OF MY BLADDER Surgical History H/O aortic root repair History of loop recorder Hx of appendectomy Hx of eye surgery Social History Smoking Status: Current some day smoker tobacco type: e-cigarettes substance use type: marijuana ROS Review of Systems ROS Unobtainable: Denies due to encephalopathy, due to endotracheal tube, due to mental condition, due to mental status or other Constitutional Constitutional: Reports change in weight and fatigue Eyes Eyes: Denies blurry vision, change in eye color, change in vision, discharge from eye(s), double vision, erythema, eye pain, loss of vision or other ENT HEENT: Denies abnormal hearing, dysphagia, ear pain, epistaxis, headache(s), hearing loss, nasal congestion, nasal discharge, post nasal drip, sinus pressure, sore throat or other Cardiovascular Cardiovascular: Denies chest pain, claudication, dyspnea on exertion, edema, lightheadedness, orthopnea, palpitations, paroxysmal nocturnal dyspnea, rapid heart rate, syncope or other Respiratory/Chest Respiratory/Chest: Denies cough, dyspnea, excessive phlegm production, hemoptysis, productive cough, shortness of breath at rest, shortness of breath with exertion, wheezing or other Gastrointestinal Gastrointestinal: Denies abdominal pain, coffee ground emesis, constipation, diarrhea, dyspepsia, hematemesis, hematochezia, loose stools, melena, nausea, vomiting or other Genitourinary Genitourinary: Denies burning urination, difficulty urinating, dysuria, hematuria, nocturia, urinary frequency, urinary hesitancy, urinary incontinence, urinary urgency or other Musculoskeletal Musculoskeletal: Denies arthralgias, back pain, joint pain, joint stiffness, joint swelling, myalgias, neck pain or other Neurologic Neurologic: Denies abnormal gait, abnormal speech, confusion, disequilibrium, dizziness, focal weakness, headache(s), numbness, paresthesias, seizure-like activity, seizures, syncope, tingling, tremor(s) or other Psychiatric Psychiatric: Denies anxiety, depression, homicidal ideation, suicidal ideation or other Endocrine Endocrinology: Denies change in body appearance, cold intolerance, excessive sweating, heat intolerance, polydipsia, polyuria or other Hematologic/Lymphatic Hematologic/Lymphatic: Denies anemia, easy bleeding, easy bruising, lymphadenopathy or other Allergic/Immunologic Allergic/Immunologic: Denies rhinitis, hives, eczemia, asthma or other Vital Signs Vital Signs Vital Signs: 02/07/24 12:40 02/07/24 12:46 02/07/24 13:40 Temperature 97.7 F L Temperature Source Temporal Pulse Rate 106 H 74 Respiratory Rate 20 H 18 Respiratory Effort Normal Respiratory Pattern Normal Blood Pressure 140/83 H 110/65 Blood Pressure Mean 102 80 Pulse Ox 96 97 Oxygen Delivery Method Room Air 02/07/24 14:00 Temperature Temperature Source Pulse Rate 70 Respiratory Rate 18 Respiratory Effort Respiratory Pattern Blood Pressure 116/60 Blood Pressure Mean 78 Pulse Ox 97 Oxygen Delivery Method Weight Weight: 166 lb 0.129 oz Body Mass Index (BMI) 24.5 Physical Exam Const alert, oriented x3 and no apparent distress HEENT normocephalic and head/scalp atraumatic Eyes PERRL and EOMs intact bilaterally Neck no lymphadenopathy Resp normal respiratory effort Cardio regular rate and regular rhythm GI normal to inspection, nondistended, normoactive bowel sounds, soft to palpation and non-tender Extremity normal to inspection and full ROM Neuro oriented x3, moves all extremities and no focal motor deficits Psych affect normal Results Medical Records Data Attestation: I reviewed the patient's medical records Lab / Micro Data Attestation: I reviewed the patient's lab results. 02/07/24 12:00 02/07/24 12:00 Labs: Laboratory Results - last 24 hr 02/07/24 12:00: WBC 13.9 H, RBC 5.14, Hgb 15.3 H, Hct 46.1, MCV 89.7, MCH 29.8, MCHC 33.2, RDW Std Deviation 42.2, RDW Coeff of Joyce 12.8, Plt Count 139 L, MPV 14.0 H, Immature Gran % (Auto) 0.400, Neut % (Auto) 79.7 H, Lymph % (Auto) 15.0 L, [place] % (Auto) 4.2, Eos % (Auto) 0.3, Baso % (Auto) 0.4, Absolute Neuts (auto) 11.1 H, Absolute Lymphs (auto) 2.08, Nucleated RBC % 0, Sodium 129 L, Potassium 4.2, Chloride 93 L, Carbon Dioxide 23.0, Anion Gap 13, BUN 18, Creatinine 1.12 H, Estim Creat Clear Calc 77.45, Est GFR (MDRD) Af Amer 74, Est GFR (MDRD) Non-Af 61, BUN/Creatinine Ratio 16.1, Glucose 640 H*, Calcium 9.9, Total Bilirubin 1.00, AST 11 L, ALT 20, Alkaline Phosphatase 94, Total Protein 7.6, Albumin 4.3, Globulin 3.3, Albumin/Globulin Ratio 1.3, Serum , Qual NEGATIVE, Acetone Level SMALL H ABG Data ABG results: ABG 02/07/24 13:27 Specimen Type ISABELLE Sample Site Not entered VBG pH 7.37 VBG pO2 54 H VBG HCO3 21 L VBG Total CO2 22 L VBG O2 Sat (Calc) 87 H VBG Base Excess -4 L POC Mix VBG pCO2 Pt Tmp 35.6 L O2 Delivery Device Not entered Assessment & Plan Assessment/Plan (1) Hyperglycemia: PLAN: Plan 28-year-old female with a history of type 1 diabetes, Marfan syndrome presents to the ED with concerns regarding hyperglycemia. The reason for her recent rise in sugar levels is not acutely known, infectious workup has been negative so far. There are no features of diabetic ketoacidosis. She was on an insulin pump at home, given her elevated sugars, we will transfer her to the ICU and started on IV insulin and gradually transition her to subcu insulin. #Type 1 diabetes mellitus, hyperglycemia: -Transfer to ICU, start insulin infusion as per ICU protocol -Monitor potassium levels -Monitor phosphorus levels -Continue IV fluids as started in the ED -No acidosis or elevated anion gap -Continue n.p.o. till sugars reach 200 and she is on the insulin pump -Endocrinology consult as an outpatient -HbA1c levels -nutrition consult #Marfan syndrome -No concerns at this time, prior imaging studies did not show any further aneurysms #Gastroparesis: Likely associated with diabetes, also smokes marijuana -Continue metoclopramide as needed -Follow-up outpatient with gastroenterology and endocrinology #PTSD: Continue home medications #DVT risk: -Enoxaparin subcut
[2024-02-07 14:50] LABS: Mucous, Urine 0 SEEN /hpf (<or=2+); Red Blood Cells-Urine 0 SEEN /hpf (0-5); White Blood Cells 0 SEEN /hpf (0-5)
[2024-02-07] MEDS: Metoclopramide 10 MG/2 ML Vial 5 MG IV (14:53)
[2024-02-07 14:56] LABS: Color, Urine Straw (Yellow); Glucose, Dipstick 1000 mg/dl (Normal); Leukocyte Esterase-Dipstick Negative /ul (Negative); Nitrite-Dipstick Negative (Negative); Occult Blood-Urine 10 /ul (Negative); Protein-Dipstick 15 mg/dl (Negative); Specific Gravity, Urine 1.015 (1.002-1.030); Urine Bilirubin Dipstick Negative (Negative); Urine Clarity Clear (Clear); Urine Urobilinogen Normal (Normal)
[2024-02-07 14:59] LABS: Ketone-Dipstick 150 mg/dl (Negative)
[2024-02-07 15:04] LABS: Bacteria 1+ /hpf (None Seen); Squamous Epithelial Cells - UA 0-5 SEEN /hpf (5-10)
[2024-02-07 15:46] LABS: Bedside Glucose 398 mg/dL (74-106)
[2024-02-07] MEDS: Insulin Lispro 100 UNIT in 0.9% Normal Saline (100mL Bag) 99 ML 7.5 UNIT CONT INF (15:46)
[2024-02-07 16:24] LABS: Bedside Glucose 378 mg/dL (74-106)
[2024-02-07] MEDS: 0.9% Normal Saline (1000mL) 1,000 ML 500 ML IV (17:07)
[2024-02-07 18:05] LABS: Bedside Glucose 257 mg/dL (74-106)
[2024-02-07 21:48] LABS: Bedside Glucose 232 mg/dL (74-106)
--- NOTE | 2024-02-08 00:53 | NURSING ---
Pt called this RN in to room, states I feel shaky, like my sugar is dropping. Fingerstick results in glucose 50; pt given apple juice and peanut butter per request.
[2024-02-08 01:07] LABS: Bedside Glucose 50 mg/dL (74-106)
[2024-02-08 02:00] VITALS: BP 120/59; PULSE 68; RESP 20; TEMP 36.6; O2SAT 96
[2024-02-08 05:04] VITALS: BMI 24.1
[2024-02-08 05:36] LABS: Absolute Lymphocyte Count 2.96 X10^3/uL (0.83-4.51); Absolute Neutrophil Count 6.1 X10^3/uL (2.0-7.7); Basophil# 0.06 X10^3/uL; Basophil% 0.6 % (0-1); Eosinophil# 0.25 X10^3/uL; Eosinophils% 2.5 % (0-5); Hematocrit 38.7 % (37-47); Hemoglobin 12.5 g/dL (12.0-15.0); Lymphocyte # 2.96 X10^3/ul (0.83-4.51); Lymphocyte % 29.7 % (19-41); Mean Corp Hgb Conc 32.3 g/dL (32-36); Mean Corpuscular Volume 89.8 fL (81-99); Mean Platelet Vol. 12.3 fl (6.2-12.0); Monocyte# 0.55 X10^3/uL; Monocyte% 5.5 % (0-10); NRBC Flagged by Analyzer 0 % (0-5); Neutrophil # 6.09 X10^3/uL (2.7-7.7); Neutrophil % 61.1 % (47-70); Platelet Count 120 K/mm3 (150-450); RBC Distribution Width SD 43.1 fl (35.1-43.9); Red Blood Count 4.31 M/mm3 (4.2-5.4)
[2024-02-08 05:50] LABS: Prothrombin Time (Protime)PT. 13.2 SECONDS (11.7-14.9)
[2024-02-08 06:30] LABS: AST(SGOT) 9 U/L (15-37); Alanine Aminotransfer ALT/SGPT 16 U/L (13-56); Alkaline Phosphatase 70 U/L (45-117); Anion Gap 4 (5-15); BUN 15 mg/dL (7-18); BUN/Creat Ratio 21.6 RATIO (10-20); Bilirubin, Direct 0.11 mg/dL (0.00-0.30); Chloride 108 mmol/L (98-107); Creatinine, Serum 0.69 mg/dL (0.55-1.02); EST Glomerular Filtration Rate 106 mL/min (>60); Est Glom Filt Rate - Afr Amer 128 mL/min (>60); Estimated Creatinine Clearance 125.72 ml/min; Globulin 2.9 g/dL (2.2-4.2); Glucose 139 mg/dL (74-106); Phosphorus 3.2 mg/dL (2.5-4.9); Potassium 3.9 mmol/L (3.5-5.1); Protein, Total 5.9 g/dL (6.4-8.2); Sodium Level 138 mmol/L (136-145)
[2024-02-08] MEDS: 0.9% Saline Lock 10 ML Syringe IV ×2 (07:26→10:07)
[2024-02-08 08:00] VITALS: BP 102/70; PULSE 65; RESP 16; TEMP 36.6; O2SAT 97
[2024-02-08 08:16] LABS: Bedside Glucose 51 mg/dL (74-106)
[2024-02-08 08:52] LABS: Bedside Glucose 92 mg/dL (74-106)
--- NOTE | 2024-02-08 09:39 | DS.PCM_ITS ---
Providers Date of Admission: 02/07/24 Primary Care Physician: No Primary Care Phys Reason For Visit: DIABETIC HYPERGLYCEMIA/GASTROPARESIS Diagnosis Discharge Diagnosis (1) Hyperglycemia: Status: Acute Code(s): R73.9 - Hyperglycemia, unspecified Medications at Discharge Home Medications insulin lispro 100 unit/mL subcutaneous solution (Humalog U-100 Insulin) See Rx Instructions .Route .COMPLEX 04/27/23 pen needle, diabetic 29 gauge x 1/2 (Ultra-Thin II Insulin Pen [place]) #100 ea 08/10/23 promethazine 25 mg tablet 25 mg PO Q6H PRN nausea and vomiting 10/25/23 prochlorperazine maleate 5 mg tablet (Compazine) 5 mg PO Q6H PRN nausea and vomiting 02/07/24 risankizumab-rzaa 150 mg/mL subcutaneous pen injector (Skyrizi) mg subcut 02/07/24 Hospital Course Operations None Procedures None Summary of Care Provided Minutes Spent on Discharge: 28 Hospital Course: 28-year-old type I diabetic presents with uncontrolled blood sugars. Glucose was 690 upon presentation. Patient states that she was checking her blood sugar and was taking more insulin and give herself insulin but despite that, her blood sugar continue to go up. So she presented here, her anion gap was normal. Patient was not in DKA. Patient was subsequent resumed on her insulin pump and her blood sugar has improved. Though she did have some hypoglycemia down to the 50s but patient has since eaten. Patient thinks that her blood sugar went up because of physiologic duress from pain from her gastroparesis. She said that she has had that those issues before and has been described as a brittle diabetic. Patient does not have a continuous glucometer but does check her blood sugar 3-5 times per day and is very well versed in monitoring her blood sugar. I told her I do not have any new recommendations is at this time. She said that she has plenty of supplies at home. 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 Physical Exam Const alert and no apparent distress Constitutional Narrative: Up in bed. Nontoxic. Afebrile. Weight / BMI Weight Weight: 74.2 kg Body Mass Index (BMI) 24.1 ABG / Lab / Microbiology Data 02/08/24 05:30 02/08/24 05:30 Laboratory: Laboratory Results - last 24 hr 02/07/24 12:00: WBC 13.9 H, RBC 5.14, Hgb 15.3 H, Hct 46.1, MCV 89.7, MCH 29.8, MCHC 33.2, RDW Std Deviation 42.2, RDW Coeff of Joyce 12.8, Plt Count 139 L, MPV 14.0 H, Immature Gran % (Auto) 0.400, Neut % (Auto) 79.7 H, Lymph % (Auto) 15.0 L, [place] % (Auto) 4.2, Eos % (Auto) 0.3, Baso % (Auto) 0.4, Absolute Neuts (auto) 11.1 H, Absolute Lymphs (auto) 2.08, Nucleated RBC % 0, Sodium 129 L 02/07/24 12:00: Sodium Cancelled, Potassium 4.2 02/07/24 12:00: Potassium Cancelled, Chloride 93 L 02/07/24 12:00: Chloride Cancelled, Carbon Dioxide 23.0 02/07/24 12:00: Carbon Dioxide Cancelled, Anion Gap 13 02/07/24 12:00: Anion Gap Cancelled, BUN 18 02/07/24 12:00: BUN Cancelled, Creatinine 1.12 H 02/07/24 12:00: Creatinine Cancelled, Estim Creat Clear Calc 77.45 02/07/24 12:00: Estim Creat Clear Calc Cancelled, Est GFR (MDRD) Af Amer 74 02/07/24 12:00: Est GFR (MDRD) Af Amer Cancelled, Est GFR (MDRD) Non-Af 61 02/07/24 12:00: Est GFR (MDRD) Non-Af Cancelled, BUN/Creatinine Ratio 16.1 02/07/24 12:00: BUN/Creatinine Ratio Cancelled, Glucose 640 H* 02/07/24 12:00: Glucose Cancelled, Calcium 9.9 02/07/24 12:00: Calcium Cancelled, Total Bilirubin 1.00, AST 11 L, ALT 20, Alkaline Phosphatase 94, Total Protein 7.6, Albumin 4.3, Globulin 3.3, Albumin/Globulin Ratio 1.3, Serum , Qual NEGATIVE, Acetone Level SMALL H 02/07/24 14:46: Urine Color Straw, Urine Clarity Clear, Urine pH 6.0, Ur Specific Saxis 1.015, Urine Protein 15 H, Urine Glucose (UA) 1000 H, Urine Ketones 150 A*, Urine Occult Blood 10 H, Urine Nitrite Negative, Urine Bilirubin Negative, Urine Urobilinogen Normal, Ur Leukocyte Esterase Negative, Urine RBC 0 SEEN, Urine WBC 0 SEEN, Ur Squamous Epith Cells 0-5 SEEN, Urine Bacteria 1+, Urine Mucus 0 SEEN 02/07/24 15:28: POC Glucose 398 H 02/07/24 16:05: POC Glucose 378 H 02/07/24 17:05: POC Glucose 257 H 02/07/24 21:24: POC Glucose 232 H 02/08/24 00:49: POC Glucose 50 L 02/08/24 05:30: WBC 10.0, RBC 4.31, Hgb 12.5, Hct 38.7, MCV 89.8, MCH 29.0, MCHC 32.3, RDW Std Deviation 43.1, RDW Coeff of Joyce 13.0, Plt Count 120 L, MPV 12.3 H , Immature Gran % (Auto) 0.600, Neut % (Auto) 61.1, Lymph % (Auto) 29.7, Oter[place] % (Auto) 5.5, Eos % (Auto) 2.5, Baso % (Auto) 0.6, Absolute Neuts (auto) 6.1, Absolute Lymphs (auto) 2.96, Nucleated RBC % 0, PT 13.2, INR 1.0, Sodium 138, Potassium 3.9, Chloride 108 H, Carbon Dioxide 26.0, Anion Gap 4 L, BUN 15, Creatinine 0.69, Estim Creat Clear Calc 125.72, Est GFR (MDRD) Af Amer 128, Est GFR (MDRD) Non-Af 106, BUN/Creatinine Ratio 21.6 H, Glucose 139 H, Calcium 8.0 L , Phosphorus 3.2, Magnesium 2.0, Total Bilirubin 0.30, Direct Bilirubin 0.11, A ST 9 L, ALT 16, Alkaline Phosphatase 70, Total Protein 5.9 L, Albumin 3.0 L, Globulin 2.9, Albumin/Globulin Ratio 1.0, TSH 1.10 02/08/24 07:59: POC Glucose 51 L 02/08/24 08:33: POC Glucose 92 ABG: ABG 02/07/24 13:27 Specimen Type ISABELLE Sample Site Not entered VBG pH 7.37 VBG pO2 54 H VBG HCO3 21 L VBG Total CO2 22 L VBG O2 Sat (Calc) 87 H VBG Base Excess -4 L POC Mix VBG pCO2 Pt Tmp 35.6 L O2 Delivery Device Not entered D/C Instructions Discharge Diet: 2000 Calorie Control Diet Meaningful Use Info Meaningful Use Meaningful Use Diagnoses (Choose all that apply): None applicable Ischemic Stroke Statin Dosing Therapy Reference: STATIN DOSE THERAPY REFERENCE: * Patients > 75 years receive moderate or high dose statin therapy. * Patients 75 years or YOUNGER should receive HIGH intensity statin dose unless contraindicated. You will be required to document reason for non-treatment if statin daily dose does not meet guidelines. HIGH DOSE STATIN THERAPY DAILY Atorvastatin > than or = to 40 mg Rosuvastatin > than or = to 20 mg Amlodipine + Atorvastatin > than or = to 2.5/40 mg Ezetimibe + Simvastatin 10/80 mg Simvastatin 80mg Discharge Plan Admission Admit Date/Time: 02/07/24 15:33 Primary Reason for Your Visit: Hyperglycemia Attending Provider: Greg Mon Primary Care Provider: Care Physician,No Primary Consulting Providers: Brown Garcia Instructions Additional Instructions / Restrictions: Check your blood sugars as you are previously doing, which she described as 3-5 times per day. If you are having issues with your blood sugar being continuously elevated, notify your physician or return to the emergency room. He did not have diabetic ketoacidosis this time but it is not to say that you could not in the future. 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 Discharge Orders/Prescriptions Prescriptions: Continued insulin lispro [Humalog U-100 Insulin] 100 unit/mL solution See Rx Instructions .ROUTE .COMPLEX Patient Comments: use IN THE INSULIN PUMP FOR A TOTAL DAILY DOSE OF 100 UNITS Rx Instructions: 100 U VIA PUMP DAILY; BASAL RATE - 1.8 UNITS/HOUR BOLUS: CARB RATIO- 1 UNIT /10 GRAMS OF CARBS CORRECTION- 1 UNIT FOR EVERY 30MG/DL BLOOD GLUCOSE OVER 120 (DME) pen needle, diabetic [Ultra-Thin II Ins Pen [place]] 29 gauge x 1/2 needle See Rx Instructions .Route Qty: 100 0RF Rx Instructions: As directed promethazine 25 mg tablet 25 mg PO Q6H PRN (Reason: nausea and vomiting) Patient Comments: TAKE 1 TABLET BY MOUTH EVERY 6 HOURS NEEDED Skyrizi 150 mg/mL pen injector subcut prochlorperazine maleate [Compazine] 5 mg tablet 5 mg PO Q6H PRN (Reason: nausea and vomiting) Referrals / Follow Up: Care Physician,No Primary [Primary Care Provider] - Disposition Disposition (needs filled in before D/C Order can be placed): Home, Self Care Charges/Coding Visit Charges Inpatient E&M: 78941 Disch Hosp
--- NOTE | 2024-02-08 10:05 | CASEMGMT ---
STIVEN SMILEY Assessment Face to Face with patient for initial transition planning/care coordination assessment. STIVEN SMILEY introduced self and role at [facility], pt voices understanding. Pt is A&Ox4 and is resting comfortably in bed and is calm. Care providers, pharmacy, and demographics verified. Admitting dx: Hyperglycemia LACE Strata: 3 PCP: No current PCP. Provider list given Specialists: Dr. Taryn Lewis ([facility]), Dr. Hylton ([facility]GI), Dr. Cohen (Cardio-[facility]) Preferred Pharmacy: [facility] Insurance: [place], JAKI/[employer] Prescription Benefit: Yes LNOK: Tiffanie Donis (SO) Living Arrangements: Pt lives with her SO on the second floor of an apartment with a flight of steps to enter ADLs/IADLs: Ind Transportation: Pt states that she (and her SO) do not have a license at this time. Pt uses her insurance and also the [employer] bus for transportation DME: Pt states she checks her BS and has enough supplies to do so. She has an insulin pump and a BGM. HHC/SNF: States HHC through [facility] x 8 years ago after her . Denies current needs. Denies SNF history or needs. Pt?s goal: Home no needs Plan: Home no needs. Pt denies home-going needs. Pt states that she has all of the DME that she needs regarding her DM. Pt states that she feels safe discharging home today. Pt denies further questions or concerns. Sinai Bello RN, CM
[2024-02-08 10:34] VITALS: BP 102/70; PULSE 65; RESP 16; TEMP 36.6; O2SAT 97
== END 2024-02-08 10:35 | disposition home or self-care (01) | DRG 638 ==
LOC: ED 15:01 → ICU 15:18
PROVIDERS: Admitting Provider Internal Medicine; Emergency Provider Emergency Medicine
DX: E10.65 Type 1 diabetes mellitus with hyperglycemia (principal); Q87.40 Marfan syndrome, unspecified; D69.6 Thrombocytopenia, unspecified; E10.43 Type 1 diabetes mellitus with diabetic autonomic (poly)neuropathy; Z79.4 Long term (current) use of insulin; F60.3 Borderline personality disorder; F12.10 Cannabis abuse, uncomplicated; K31.84 Gastroparesis; F17.210 Nicotine dependence, cigarettes, uncomplicated; F43.10 Post-traumatic stress disorder, unspecified
CPT/HCPCS: 36591; 80053; 81001; 82009; 82248; 82803; 82962; 83735; 84100; 84443; 84703; 85025; 85610; 93005; 99284; 99406; J7030; A4216

== ENCOUNTER 2024-04-21 20:09 | Emergency (ER) | payer MEDICARE, MEDICAID, SELFPAY ==
[2024-04-21 20:10] VITALS: BP 122/81; PULSE 83; RESP 19; TEMP 35.7; O2SAT 99; BMI 24.6
--- NOTE | 2024-04-21 21:08 | EX.ED.DYSGE1 ---
HPI <JOCELYNE Ray - Last Filed: 04/21/24 22:23> History of Present Illness Chief Complaint: Nausea/Vomiting Narrative Narrative: Patient presenting today due to episodes of hyperglycemia and hypoglycemia that occurred today. Patient has a history of type 1 diabetes, she does take insulin. She reports that her insulin pump was pinched and malfunctioned early this morning resulting in her glucose being around 530. She reports that it then got as low as 42. She has been in DKA in the past, she does not feel like she is now. However, she has had several episodes of nausea and vomiting today. She reports that she did have an episode of tachycardia earlier but seems to be resolving. She also reports a pain below her right breast that comes and goes. PFSH <JOCELYNE Ray - Last Filed: 04/21/24 22:23> [facility] Medical History Diabetic gastroparesis Substance abuse Kidney stones Kidney disease Smoker Intractable vomiting Type 1 diabetes Marfan syndrome Depression Anxiety PTSD (post-traumatic stress disorder) Borderline personality disorder Home Medications ?Medication ?Instructions ?Recorded ?Last Taken ?Type insulin lispro 100 unit/mL See Rx Instructions .Route .COMPLEX 04/27/23 09/20/23 History subcutaneous solution (Humalog U-100 Insulin) pen needle, diabetic 29 gauge x #100 ea 08/10/23 Unknown Rx 1/2 (Ultra-Thin II Insulin Pen [place]) promethazine 25 mg tablet 25 mg PO Q6H PRN nausea and 10/25/23 10/24/23 History vomiting prochlorperazine maleate 5 mg 5 mg PO Q6H PRN nausea and vomiting 02/07/24 Unknown History tablet (Compazine) risankizumab-rzaa 150 mg/mL 150 mg subcut .[id number] 02/07/24 Unknown History subcutaneous pen injector (Skyrizi) potassium chloride 20 mEq 20 meq PO BID #10 tabs 04/21/24 Unknown Rx tablet,extended release Allergy/AdvReac Type Severity Reaction Status Date / Time adhesive tape Allergy Intermediate Rash Verified 04/21/24 20:12 cephalexin (From Keflex) Allergy Intermediate Other Verified 04/21/24 20:12 morphine Allergy Intermediate Rash Verified 04/21/24 20:12 oxycodone (From Percocet) Allergy Intermediate Rash Verified 04/21/24 20:12 ondansetron AdvReac I BLACK Verified 04/21/24 20:12 OUT AND LOSE CONTROL OF MY BLADDER Surgical History History of loop recorder Hx of appendectomy Hx of eye surgery H/O aortic root repair Social History Smoking Status: Current some day smoker tobacco type: cigarettes and e-cigarettes substance use type: marijuana ROS <JOCELYNE Ray - Last Filed: 04/21/24 22:23> ROS ED Constitutional Constitutional ED: Denies chills or fever(s) Cardiovascular Cardiovascular: Reports other Details: Tachycardia ; Denies chest pain Respiratory/Chest Respiratory/Chest: Denies cough or dyspnea Gastrointestinal Gastrointestinal: Reports nausea and vomiting; Denies abdominal pain Genitourinary Genitourinary ED: Denies dysuria, hematuria or urinary urgency Musculoskeletal Musculoskeletal: Denies arthralgias or myalgias Integumentary Denies rash Neurologic Neurologic: Denies weakness EXAM <JOCELYNE Ray - Last Filed: 04/21/24 22:23> Physical Exam Const Vital Signs: 04/21/24 20:10 04/21/24 20:18 04/21/24 22:10 Temperature 96.2 F L Temperature Source Temporal Pulse Rate 83 76 Respiratory Rate 19 H 14 Respiratory Effort Normal Non-Labored Respiratory Pattern Normal Blood Pressure 122/81 H 123/70 H Blood Pressure Mean 94 87 Pulse Ox 99 96 Oxygen Delivery Method Room Air Room Air 04/21/24 23:46 Temperature 97.0 F L Temperature Source Pulse Rate 67 Respiratory Rate 12 Respiratory Effort Respiratory Pattern Blood Pressure 121/73 H Blood Pressure Mean 89 Pulse Ox 98 Oxygen Delivery Method Positive well nourished, well developed and no apparent distress General Appearance ED: well developed HEENT Reports normocephalic and head/scalp atraumatic Mouth ED: Yes moist mucous membranes normal Eyes PERRL and EOMs intact bilaterally Neck full ROM and supple Chest Wall inspection of chest normal Resp normal respiratory effort and clear to auscultation bilaterally Cardio regular rate and regular rhythm GI soft to palpation, non-tender, non-distended and no masses Back/Spine normal ROM and normal to inspection Extremity normal to inspection and full ROM Neuro oriented x3, CN's II-XII intact bilaterally, moves all extremities, no focal motor deficits and no sensory deficits noted Sensorium / Orientation: awake and alert Psych mental status grossly normal and thought process normal Skin no rashes or lesions noted and no wounds <Dr. Marc Carl DO - Last Filed: 04/22/24 00:21> Physical Exam Const Vital Signs: 04/21/24 20:10 04/21/24 20:18 04/21/24 22:10 Temperature 96.2 F L Temperature Source Temporal Pulse Rate 83 76 Respiratory Rate 19 H 14 Respiratory Effort Normal Non-Labored Respiratory Pattern Normal Blood Pressure 122/81 H 123/70 H Blood Pressure Mean 94 87 Pulse Ox 99 96 Oxygen Delivery Method Room Air Room Air 04/21/24 23:46 Temperature 97.0 F L Temperature Source Pulse Rate 67 Respiratory Rate 12 Respiratory Effort Respiratory Pattern Blood Pressure 121/73 H Blood Pressure Mean 89 Pulse Ox 98 Oxygen Delivery Method MDM <JOCELYNE Ray - Last Filed: 04/21/24 22:23> [facility] MDM Narrative Medical decision making narrative: Patient presenting today due to concerns for hyper and hypoglycemia that occurred today as well as nausea, vomiting, and intermittent heart palpitations. She is well-appearing and in no acute distress. Labs will be obtained to rule out DKA, EKG will be obtained to rule out arrhythmia, she is not tachycardic here. She was given IV fluids and Reglan. She does not appear to be in DKA, her potassium is low at 2.7, she was given oral potassium replacement. Her glucose here is 173. Workup is pending. Lab Data Labs: Laboratory Results - last 24 hr 04/21/24 21:15 WBC 9.5 RBC 4.22 Hgb 12.3 Hct 37.4 MCV 88.6 MCH 29.1 MCHC 32.9 RDW Std Deviation 41.1 RDW Coeff of Joyce 12.5 Plt Count 76 L MPV 13.3 H Immature Gran % (Auto) 0.700 Neut % (Auto) 70.2 H Lymph % (Auto) 20.2 [place] % (Auto) 7.4 Eos % (Auto) 1.1 Baso % (Auto) 0.4 Absolute Neuts (auto) 6.7 Absolute Lymphs (auto) 1.92 Nucleated RBC % 0 Platelet Estimate MOD DEC RBC Morphology NORM C+C Anisocytosis RARE Sodium 143 Potassium 2.7 L* Chloride 113 H Carbon Dioxide 23.0 Anion Gap 7 BUN 14 Creatinine 0.68 Estim Creat Clear Calc 127.57 Est GFR (MDRD) Af Amer 130 Est GFR (MDRD) Non-Af 107 BUN/Creatinine Ratio 20.4 H Glucose 173 H Calcium 7.3 L Total Bilirubin 0.40 Direct Bilirubin 0.16 AST 10 L ALT 15 Alkaline Phosphatase 65 Total Protein 5.6 L Albumin 3.0 L Globulin 2.6 Lipase 14 Serum , Qual NEGATIVE Acetone Level NEGATIVE <Dr. Marc Carl, DO - Last Filed: 04/22/24 00:21> [facility] MDM Narrative Medical decision making narrative: Patient presenting today due to concerns for hyper and hypoglycemia that occurred today as well as nausea, vomiting, and intermittent heart palpitations. She is well-appearing and in no acute distress. Labs will be obtained to rule out DKA, EKG will be obtained to rule out arrhythmia, she is not tachycardic here. She was given IV fluids and Reglan. She does not appear to be in DKA, her potassium is low at 2.7, she was given oral potassium replacement. Her glucose here is 173. Workup is pending. I have personally performed a face to face assessment of the patient and have reviewed the ASHLY Note. I performed a substantive portion of the visit including all aspects of the following. My herrera findings include: History is 28-year-old insulin-dependent diabetic presenting with vomiting and concern for DKA. Patient notes she has Compazine and Phenergan at home. She is concerned that she is unable to tolerate p.o. No reported fevers. No diarrhea. Exam is patient appears fatigued but is in no acute distress. Abdomen soft nontender. Excellent capillary refill. Mucous membranes are moist. Medical Decison Making patient received IV fluids and Reglan. Later she received supplemental potassium. White count 9.5 hemoglobin 12.3 platelet count of 76. Glucose 173 ketones are negative test is negative. Potassium is low at 2.7. She is tolerating ice chips. At this point patient will be discharged home. She has nausea medication at home. I will write for some some continued supplemental potassium. She is to continue her insulin and use Gatorade or other sugar to keep her blood sugar from going hypoglycemic. She is comfortable doing this. Return if worsening or concerns History & Record Review Discussion w/independent historian: Patient Lab Data Attestation: I reviewed the patient's lab results. Labs: Laboratory Results - last 24 hr 04/21/24 21:15 WBC 9.5 RBC 4.22 Hgb 12.3 Hct 37.4 MCV 88.6 MCH 29.1 MCHC 32.9 RDW Std Deviation 41.1 RDW Coeff of Joyce 12.5 Plt Count 76 L MPV 13.3 H Immature Gran % (Auto) 0.700 Neut % (Auto) 70.2 H Lymph % (Auto) 20.2 [place] % (Auto) 7.4 Eos % (Auto) 1.1 Baso % (Auto) 0.4 Absolute Neuts (auto) 6.7 Absolute Lymphs (auto) 1.92 Nucleated RBC % 0 Platelet Estimate MOD DEC RBC Morphology NORM C+C Anisocytosis RARE Sodium 143 Potassium 2.7 L* Chloride 113 H Carbon Dioxide 23.0 Anion Gap 7 BUN 14 Creatinine 0.68 Estim Creat Clear Calc 127.57 Est GFR (MDRD) Af Amer 130 Est GFR (MDRD) Non-Af 107 BUN/Creatinine Ratio 20.4 H Glucose 173 H Calcium 7.3 L Total Bilirubin 0.40 Direct Bilirubin 0.16 AST 10 L ALT 15 Alkaline Phosphatase 65 Total Protein 5.6 L Albumin 3.0 L Globulin 2.6 Lipase 14 Serum , Qual NEGATIVE Acetone Level NEGATIVE EKG Initial EKG: Attestation: I personally reviewed and interpreted this EKG as follows: Comments: Sinus bradycardia ventricular rate of 55 bpm Discharge Plan Triage Chief Complaint: Nausea/Vomiting Other Complaint: Hyperglycemia ED Midlevel Provider: Chelle Andino ED Provider: Marc Carl Dx/Rx/DC Orders Clinical Impression: Hyperglycemia, Acute hypokalemia, Vomiting Instructions: ED Hypokalemia, ED Vomiting (Adult) Prescriptions: New potassium chloride 20 mEq tablet extended release 20 meq PO BID Qty: 10 0RF No Action insulin lispro [Humalog U-100 Insulin] 100 unit/mL solution See Rx Instructions .ROUTE .COMPLEX Patient Comments: use IN THE INSULIN PUMP FOR A TOTAL DAILY DOSE OF 100 UNITS Rx Instructions: 100 U VIA PUMP DAILY; BASAL RATE - 1.8 UNITS/HOUR BOLUS: CARB RATIO- 1 UNIT /10 GRAMS OF CARBS CORRECTION- 1 UNIT FOR EVERY 30MG/DL BLOOD GLUCOSE OVER 120 (DME) pen needle, diabetic [Ultra-Thin II Ins Pen [place]] 29 gauge x 1/2 needle See Rx Instructions .Route Qty: 100 0RF Rx Instructions: As directed promethazine 25 mg tablet 25 mg PO Q6H PRN (Reason: nausea and vomiting) Patient Comments: TAKE 1 TABLET BY MOUTH EVERY 6 HOURS NEEDED Skyrizi 150 mg/mL pen injector 150 mg subcut .[id number] prochlorperazine maleate [Compazine] 5 mg tablet 5 mg PO Q6H PRN (Reason: nausea and vomiting) Primary Care Provider: Care Physician,No Primary Referrals: Care Physician,No Primary [Primary Care Provider] - Activity Restrictions/Additional Instructions: Please continue to monitor your blood sugar and take insulin to help keep you out of DKA. If need be please take some Gatorade to ensure you do not become hypoglycemic. Please return if worsening or concerns. Print Language: Armenian Disposition Disposition: Home, Self Care Discharge Date/Time: 04/21/24 23:48
--- NOTE | 2024-04-21 21:18 | EKG12_ITS ---
Test Reason : CP Blood Pressure : / mmHG Vent. Rate : 055 BPM Atrial Rate : 055 BPM P-R Int : 154 ms QRS Dur : 084 ms QT Int : 434 ms P-R-T Axes : 011 058 046 degrees QTc Int : 415 ms Sinus bradycardia Otherwise normal ECG Confirmed by Alfonso Ho ([id number]), medical transcription editor QUENTIN ESPAÑA ([id number]) on 04/22/2024 7:37:45 AM Referred By: Confirmed By:Alfonso Ho
[2024-04-21] MEDS: Metoclopramide 10 MG/2 ML Vial 5 MG IV (21:20)
[2024-04-21] MEDS: 0.9% Normal Saline (1000mL) 1,000 ML 999 ML IV (21:20)
[2024-04-21 21:28] LABS: Absolute Lymphocyte Count 1.92 X10^3/uL (0.83-4.51); Absolute Neutrophil Count 6.7 X10^3/uL (2.0-7.7); Basophil# 0.04 X10^3/uL; Basophil% 0.4 % (0-1); Eosinophils% 1.1 % (0-5); Hematocrit 37.4 % (37-47); Hemoglobin 12.3 g/dL (12.0-15.0); Lymphocyte # 1.92 X10^3/ul (0.83-4.51); Lymphocyte % 20.2 % (19-41); Mean Corp Hgb Conc 32.9 g/dL (32-36); Mean Corpuscular Hgb 29.1 pg (27.0-32.0); Mean Corpuscular Volume 88.6 fL (81-99); Mean Platelet Vol. 13.3 fl (6.2-12.0); Monocyte% 7.4 % (0-10); NRBC Flagged by Analyzer 0 % (0-5); Neutrophil # 6.69 X10^3/uL (2.7-7.7); Neutrophil % 70.2 % (47-70); POSITIVE COUNT YES; Platelet Count 76 K/mm3 (150-450); RBC Distribution Width CV 12.5 % (11.6-14.6); RBC Distribution Width SD 41.1 fl (35.1-43.9); Red Blood Count 4.22 M/mm3 (4.2-5.4); White Blood Count 9.5 K/mm3 (4.4-11.0)
[2024-04-21 21:42] LABS: Internal QC Validated? YES +Cl - CLEAR BKGD; Pregnancy, Serum, hCG Quali. NEGATIVE Negative; Record Kit Lot#, Serum Preg. 772476
[2024-04-21 21:45] LABS: Anion Gap 7 (5-15); BUN 14 mg/dL (7-18); BUN/Creat Ratio 20.4 RATIO (10-20); Calcium,Total 7.3 mg/dL (8.5-10.1); Chloride 113 mmol/L (98-107); Creatinine, Serum 0.68 mg/dL (0.55-1.02); EST Glomerular Filtration Rate 107 mL/min (>60); Est Glom Filt Rate - Afr Amer 130 mL/min (>60); Estimated Creatinine Clearance 127.57 ml/min; Glucose 173 mg/dL (74-106); Potassium 2.7 mmol/L (3.5-5.1); Sodium Level 143 mmol/L (136-145)
[2024-04-21 22:10] VITALS: BP 123/70; PULSE 76; RESP 14; O2SAT 96
[2024-04-21] MEDS: Potassium Chloride Oral Tablet 20 MEQ 40 MEQ PO (22:15)
[2024-04-21 22:31] LABS: Differential Indicated SCAN CRITERIA MET
[2024-04-21 22:53] LABS: Anisocytosis RARE; Platelet Estimate MOD DEC (ADEQ); Red Cell Morphology NORM C+C NORMAL (NORM C&C)
[2024-04-21 22:56] LABS: AST(SGOT) 10 U/L (15-37); Alanine Aminotransfer ALT/SGPT 15 U/L (13-56); Alkaline Phosphatase 65 U/L (45-117); Bilirubin, Direct 0.16 mg/dL (0.00-0.30); Globulin 2.6 g/dL (2.2-4.2); Lipase 14 U/L (13-75); Protein, Total 5.6 g/dL (6.4-8.2)
[2024-04-21] MEDS: 0.9 % NaCl (Sterile) Posiflush 10 mL IV (23:45)
[2024-04-21 23:46] VITALS: BP 121/73; PULSE 67; RESP 12; TEMP 36.1; O2SAT 98
== END 2024-04-21 23:48 | disposition home or self-care (01) ==
PROVIDERS: Physician Assistant; Emergency Provider Emergency Medicine; Visit Provider Emergency Medicine
DX: E10.65 Type 1 diabetes mellitus with hyperglycemia (principal); R11.2 Nausea with vomiting, unspecified; E87.6 Hypokalemia; F17.210 Nicotine dependence, cigarettes, uncomplicated; F17.290 Nicotine dependence, other tobacco product, uncomplicated; Z96.41 Presence of insulin pump (external) (internal); Z79.899 Other long term (current) drug therapy
CPT/HCPCS: 36591; 80048; 80076; 82009; 83690; 84703; 85025; 93005; 96361; 96374; 99283; J7030; A4216

== ENCOUNTER 2024-05-21 08:00 | Outpatient (RCR) | payer MEDICARE, MEDICAID, SELFPAY ==
--- NOTE | 2024-05-21 11:10 | BH.SGPN.GN ---
Behaviors/Verbalizations/Mental Status: []Pt alert and oriented, disheveled appearance. Eye contact good. Motor activity appropriate. Speech within normal limits. Affect congruent, mood depressed. Thoughts linear, logical, no signs of hallucinations or delusions. Client Response/Progress/Benefit: [] Pt responded well to session, taking notes and contributing when prompted. Group discussed the different categories of coping skills which included distraction, emotional release, grounding, self-love, and thought challenging. Pt participated in creating a coping skills ?menu? from the five categories of coping skills. Pt's coping skill menu included: dialectical thinking, helping others, self-compassion, yelling safely, and positive self-talk. Appeared to benefit from increasing repertoire of healthy coping skills. Will continue IOP to prevent decompensation, gain healthy coping skills, and improve daily functioning. Narrative Note: []
--- NOTE | 2024-05-21 14:34 | BH.MDN ---
Multi-Disciplinary Note Note 60-min Individual: Time Started:: 08:45 Date: 05/21/24 Purpose of session/treatment goals addressed:: To gather information on pt's stressors, history, triggers, and symptoms. Another goal was to build rapport. Eye Contact:: Good Motor Activity:: Appropriate Appearance:: Casual Speech:: Appropriate and Soft Affect:: Congruent Thoughts:: Linear, Logical and No evidence of hallucinations/delusions noted Staff Interventions:: motivational interviewing, rapport building, strengths perspective, treatment planning and goal setting Client Response:: Pt responded well to session, open to meeting with therapist. Pt?s first day in [facility] tx and reports feeling ?hopeful? that she will able to learn additional skills to improve her mental health and mood stability. Reports she initially completed an intake assessment for the [facility] program several months ago but was unable to start at that time. Pt then referred herself back to [facility] tx due to worsening sx of anxiety, depression, and suicidal ideation without plan or intent. Stated that in the past 2 months she has noticed increased panic and night terrors associated with the loss of her 16-month old daughter seven years ago. Shared that the anniversary of this loss is May 28 and her mental health typically suffers around this time of year. Endorses poor concentration, fatigue, emotional reactivity, difficulties sleeping, and more frequent suicidal ideation. Pt has a hx of chronic suicidal ideation and 5 previous attempts (3 of these were interrupted by others). Denies any current plan or intent, reporting last thoughts occurred ~2 days ago. Reports her stepdaughter and fianc? are major sources of support and protective factors for her. Additional stressors impacting pt?s functioning include chronic medical conditions causing pt severe nausea and pain, as well as upcoming legal issues as pt plans to seek custody of her son whom is currently in custody of pt?s mother. Reports current sx and stressors are impacting her relationship with her fianc?. Pt recently connected with AA and is working the 12-step program which has been helpful, as well as engaged in outpatient counseling. Pt receptive to goal setting and reports wanting to better cope with trauma triggers, learn healthy skills for consistently regulating her emotions, and improve her ability to communicate with supports. Pt and therapist will meet once a week. Risks/Concerns:: Pt denies any active SI, plan, or intent. Last SI was 2 days ago and pt reports protective factors. Progress Toward Goals/Plan:: Pt's first day of IOP tx and she reports feeling excited and hopeful about the program. Pt stated she hoping to learn more about herself, her diagnosis, and strategies to improve her ability to start using healthy coping skills. Pt's goals for IOP include reducing anxiety, depression, and unhealthy coping responses. Pt does not currently have a psychiatrist but is engaged in weekly counseling with outpatient therapist. Pt will continue IOP tx prevent decompensation, improve daily functioning, and increase distress tolerance skills. Time Stopped:: 10:00
--- NOTE | 2024-05-21 14:40 | BH.COMM_ITS ---
Communication Note Communication with Client Communication Note: Met with patient to complete initial paperwork and risk assessment. Reviewed pre-admission intake. No significant changes. Completed [place] Suicide Screening. moderate risk. Mediated by recent passive SI with out plan or intent 2 days ago. No active SI, plan, or intent. Hx of 5 previous attempts, last in 2018 following the loss of her daughter. Protective factors noted and pt reports future orientation. Consulted with Dr. Vera with plan to admit to IOP with dx F 33.2
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
[2024-05-22 09:15] VITALS: BP 133/85; PULSE 82
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
--- NOTE | 2024-05-22 13:27 | BH.DR.ITP ---
Initial Treatment Plan Patient Information Visit Information: ADMISSION DATE: EXPECTED LOS: 4-6 weeks Problems/Symptoms Problem #1:: Depression Symptom:: Sadness, passive thoughts of , hopelessness, anhedonia, low energy, decreased concentration, guilt, biological disruption of sleep and appetite Problem #2:: Anxiety Symptom:: Worry, rumination, avoidance, nightmares
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
--- NOTE | 2024-05-23 10:10 | BH.SGPN.GN ---
Behaviors/Verbalizations/Mental Status: [] Eye contact is good. Motor activity is appropriate. Appearance is casual. Speech is Appropriate. Mood is content. Affect is congruent. Thoughts are linear and logical. No evidence of psychosis. Client Response/Progress/Benefit: [] Pt receptive to session AEB listening attentively to others and taking notes. Pt attentive and contributing throughout psychoeducation on the cognitive triangle and maintenance cycles. Pt engaged during group discussion reviewing the impact of daily activities and behaviors in either reinforcing unhealthy maintenance cycles and depression or assisting in reducing symptoms (?down? vs ?up? activities). Pt identified personal ?down? activities they engage in as: not eating or over-eating, shutting down, and sleeping. Attentive during discussion on Common ?Up? activities Pt identified theirs to include: walking her dogs and talking with her . Appeared to benefit from increased awareness of current behaviors and impact these have on mental health. Will continue IOP to prevent decompensation, improve daily functioning, and gain healthy coping skills. Narrative Note: []
--- NOTE | 2024-05-23 11:10 | BH.SGPN.GN ---
Behaviors/Verbalizations/Mental Status: [] Eye contact is good. Motor activity is appropriate. Appearance is casual. Speech is Appropriate. Mood is anxious. Affect is congruent. Thoughts are linear and logical. No evidence of psychosis Client Response/Progress/Benefit: [] Pt responded well to session, attentive and engaged in group activities. Attentive during group discussions. Attentive as group discussed values and the benefits that knowing one's values can have on one's mental health. Pt explored own values and identified personal top values. Pt stated personally important values are family and intimate relationships. ?Pt set a goal to be more open and share feelings with partner. Benefited from increased awareness of their personal values and how incorporating their values into behavioral activation goals can positive impact mental health. Will continue in IOP to prevent decompensation/re-admission to psych unit, increase healthy coping, and improve functioning. Narrative Note: []
--- NOTE | 2024-05-27 09:00 | BH.SGPN.GN ---
Behaviors/Verbalizations/Mental Status: [] Eye contact is good. Motor activity is appropriate. Appearance is casual. Speech is Appropriate. Mood is depressed. Affect is congruent. Tearful. Thoughts are linear and logical. No evidence of psychosis. Reviewed daily check in sheet and pt reports 5/5 for suicidal ideations and 0/5 for intent. Will meet with therapist for risk assessment. Client Response/Progress/Benefit: [] Pt participated at times. Attentive. Daily symptom tracker notes 5/5 for depression and 4/5 for anxiety. Shared with the group that tomorrow is the anniversary of her daughter's . Tearful during her check-in. Described how difficult the day will be. Group provided support and encouragement. Group also shared feedback on how they cope with difficult anniversaries in their lives. Pt is already working on a plan for tomorrow to get keep herself engaged, around others, and also find ways to honor her daughter. Benefited from group support, encouragement, and feedback. Will continue in IOP to maintain safety, prevent decompensation, and improve functioning. Narrative Note: []
--- NOTE | 2024-05-27 10:10 | BH.SGPN.GN ---
Behaviors/Verbalizations/Mental Status: []Client alert and oriented, casually dressed and groomed. Eye contact fair. Motor activity appropriate. Speech within normal limits. Affect constricted, mood anxious and depressed. Thoughts linear, logical, no signs of hallucinations or delusions. Client Response/Progress/Benefit: [] Pt engaged in session AEB listening attentively to others and providing input throughout. Pt engaged in activity, able to connect how it can be uncomfortable and difficult to accept when things are out of one?s own control. Pt worked with group to identify what things in life can be hard to accept. Group identified things hard to accept as: change, loss, mental health diagnosis, other?s behaviors, and failure. Pt identified struggling to accept that ?time moves forward, and my daughter isn?t here.? Seemed to benefit from increased awareness of the importance of acceptance. Pt to continue in IOP tx to prevent decompensation, improve daily functioning, and gain healthy coping skills. ?? Narrative Note: []
--- NOTE | 2024-05-27 11:10 | BH.SGPN.GN ---
Behaviors/Verbalizations/Mental Status: []Pt alert and oriented, casually dressed and groomed. Eye contact good. Motor activity appropriate. Speech within normal limits. Affect congruent, mood depressed. Thoughts linear, logical, no signs of hallucinations or delusions. Client Response/Progress/Benefit: [] Pt responded well to session AEB taking notes and contributing to discussion throughout. Pt engaged as group continued discussion on acceptance and the mental health benefits of practicing acceptance. Pt and peers identified what makes acceptance challenging and pt completed a self-reflection exercise on what is hard to accept in pt's life. Pt identified what is hard to accept in their life that they would like to work on is that time continues to pass even after loss. Group identified strategies to increase acceptance and pt wants to practice utilizing challenging her distorted thought patterns to increase acceptance. Pt appeared to benefit from gaining insight and learning strategies to increase acceptance. Pt will continue IOP tx to prevent decompensation, promote skill application, improve mood stability. Narrative Note: []
--- NOTE | 2024-05-27 15:14 | BH.MDN ---
Multi-Disciplinary Note Note 60-min Individual: Time Started:: 12:00 Date: 05/27/24 Purpose of session/treatment goals addressed:: Purpose of session was to address treatment plan goal #1, obj #1 and goal #2 obj #2. Eye Contact:: Good and Fair Motor Activity:: Appropriate Appearance:: Casual Speech:: Appropriate and Soft Mood:: Depressed Affect:: Congruent Thoughts:: Linear, Logical and No evidence of hallucinations/delusions noted Staff Interventions:: CBT techniques, rapport building, completed risk assessment / safety planning and taught coping skills (DBT DEAR MAN skill) Client Response:: Pt actively engaged throughout session. Reports finding the IOP program and groups to be helpful so far. Shared that she has found the shared experience component to be helpful throughout her substance abuse recovery tx in AA, and believes the shared experience will also be helpful with her mental health tx. Noted that she found today?s group topic of ?Acceptance? helpful in trying to accept and effectively cope with her grief and the upcoming trauma anniversary of her daughter?s tomorrow. Pt reports working on accepting that she will never have an exact cause of for her daughter and in order to accept this she must rely on what she knows to be her own ?truth? regarding circumstances surrounding that date. Went on to indicate that accepting this loss and healing through her grief does not mean forgetting about her daughter. Identified wanting to honor her daughter?s life through a balloon release tomorrow afternoon, noting a desire to focus on the positive memories rather than pain associated with her loss. Did well to work with therapist to create and review a healthy coping plan for managing her grief throughout the day tomorrow. Pt identified plans to attend three local AA groups in order to have additional support, distraction, and prevent isolation. Pt will additionally pick her step-daughter up from school which will provide additional interaction and distraction. Discussed the need for self-compassion, acknowledgement of her emotions rather than pushing them down, and enjoyable self-care activities. Pt identified that she will likely need a short nap after AA, plans to engage in mindful coloring with her step-daughter, as well as check-in with both her sponsor and fianc? throughout the day. Risks/Concerns:: Tomorrow is the anniversary date of her daughter's which is traditionally a difficult date for pt. She did well to create a coping safety plan and reports feeling more prepared for managing her grief tomorrow. Denies active SI, plan, or intent as of this date and is future oriented. Willing to contact crisis resources if unable to maintain safety. Progress Toward Goals/Plan:: Progress noted. Pt reports finding groups to be helpful and is learning about her mental health dx, as well as strategies to begin improving mood stability and emotion regulation. Noted beginning to incorporate more grounding skills and has more openly been communicating with supports. Continues to attend regular AA and maintains sobriety. Willing to safety plan for upcoming trauma anniversary date which she reports struggling to do in the past. Pt continues to endorse sx of PTSD, depression, and grief. Recommended continued IOP tx to improve mood stability, better manage ptsd triggers, and prevent decompensation. Time Stopped:: 12:54
== END 2024-05-27 23:59 ==
LOC: BHIOP 08:00
PROVIDERS: Referring Provider Psychiatry & Neurology Psychiatry; Visit Provider Psychiatry & Neurology Psychiatry
DX: F33.2 Major depressive disorder, recurrent severe without psychotic features (principal); F43.10 Post-traumatic stress disorder, unspecified; F41.0 Panic disorder [episodic paroxysmal anxiety]; F60.3 Borderline personality disorder
CPT/HCPCS: S9480; 90837; 90853

== ENCOUNTER 2024-05-28 08:05 | Outpatient (RCR) | payer MEDICARE, MEDICAID, SELFPAY ==
[2024-05-28 00:27] VITALS: BP 133/85; PULSE 82
--- NOTE | 2024-05-29 09:00 | BH.SGPN.GN ---
Behaviors/Verbalizations/Mental Status: []Pt alert and oriented, disheveled appearance. Eye contact fair. Motor activity appropriate. Speech within normal limits. Affect congruent, mood tired and depressed. Thoughts linear, logical, no signs of hallucinations or delusions. Reviewed pt?s symptom tracker, no risk for suicidal ideation, plan, or intent 05/29/24 Client Response/Progress/Benefit: []Pt was an active participant in group discussions. Attentive. Able to identify mental health wins including not isolating and spending time with people who love pt which helped pt in her grief. Pt also finds IOP beneficial and pt is glad she could be here today. Pt's stressor today is that it is the anniversary of her daughter's passing and grief has been more intense. Pt stated pt is feeling like I'm in agony this morning. Pt receptive to feedback from peers which pt reported was helpful. Progress noted. Benefited from group support, encouragement, and feedback. Will continue in IOP to prevent decompensation, improve daily functioning, and increase use of healthy coping skills. Narrative Note: []
--- NOTE | 2024-05-29 10:10 | BH.SGPN.GN ---
Behaviors/Verbalizations/Mental Status: [] Eye contact is good. Motor activity is appropriate. Appearance is casual. Speech is Appropriate. Mood is depressed. Affect is congruent. Thoughts are linear and logical. No evidence of psychosis Client Response/Progress/Benefit: [] Pt responded well to session AEB contributing to small group discussion, taking notes, and listening attentively to others. Group defined anger and discussed the benefits of managed anger and anger as a secondary emotion. Pt shared perspective on personal benefits of anger as advocating for self and getting needs met. Pt completed worksheet on anger triggers and personal warning signs of anger. Pt identified a common trigger as seeing people I care about be hurt. Appeared to benefit from increased knowledge of the anger cycle as well as personal triggers. Will continue IOP to increase healthy coping, prevent decompensation, and improve functioning. Narrative Note: []
--- NOTE | 2024-05-29 11:10 | BH.SGPN.GN ---
Behaviors/Verbalizations/Mental Status: []Client alert and oriented, disheveled in appearance. Eye contact fair. Motor activity appropriate. Speech within normal limits. Affect constricted, mood dysthymic. Thoughts linear, logical, no signs of hallucinations or delusions. Client Response/Progress/Benefit: []Pt was engaged throughout AEB contributing to group discussion and activity. Group processed how they each responded to the intentionally difficult task they were asked to completed and described the physical and emotional anger cues experienced throughout, as well as strategies used for managing these frustrations. Pt contributed as group brainstormed healthy coping skills for better managing anger which included: music, walking/exercise, taking a break, healthy venting, avoiding unnecessary stressors, reflection, and journaling. Pt cooperative with working in small groups to identify what strategy wants to work on to help interrupt personal anger cycle. Pt to continue IOP to challenge cognitive distortions, increase use of healthy coping skills, and prevent decompensation.
--- NOTE | 2024-05-31 09:00 | BH.SGPN.GN ---
Behaviors/Verbalizations/Mental Status: [] Eye contact is good. Motor activity is appropriate. Appearance is disheveled. Speech is Appropriate. Mood is depressed.. Affect is congruent. Thoughts are linear and logical. No evidence of psychosis. Reviewed daily check in sheet and pt reports 3/5 for passive thoughts of and 0/5 for suicidal intent. This is close to baseline. Client Response/Progress/Benefit: [] Pt participated at times during the group discussions. Attentive. Daily symptom tracker notes 4/5 for depression, anxiety, and self-harm urges. I'm completing tasks despite being highly depressed. Attempting behavioral activation and opposite action which she feels has helped minimize her decompensation. Feeling distracted and aloof today. Insight that her recent mental health struggles are related to the anniversary of her child's . Limited progress noted. Benefited from group support, encouragement, and feedback. Will continue in IOP to prevent further decompensation, stablize mood, and increase healthy coping. Narrative Note: []
--- NOTE | 2024-05-31 10:10 | BH.SGPN.GN ---
Behaviors/Verbalizations/Mental Status: []Pt alert and oriented, casually dressed and groomed. Eye contact good. Motor activity appropriate. Speech within normal limits. Affect congruent, mood depressed. Thoughts linear, logical, no signs of hallucinations or delusions. Client Response/Progress/Benefit: [] Pt took notes and contributed to group discussions. Attentive during psychoeducation on growth mindset. Participated during the activity. Interactive group discussion on growth mindset in which group verbalized their current fixed mindsets and how they affect their mental health. Pt shared common fixed mindset thoughts they have which included I'll always be in pain; No one would notice if I were to disappear?. These thoughts lead to feeling and staying stuck, not practicing self-care, and self-criticism. Pt stated they have personally struggled with fixed thoughts causing them to stop trying or turn to substances. Pt benefited from increased awareness of growth mindset and fixed thoughts and how fixed thoughts impact their mental health. Will continue IOP tx to prevent decompensation, improve daily functioning, and promote mood stability. Narrative Note: []
--- NOTE | 2024-05-31 11:15 | BH.SGPN.GN ---
Behaviors/Verbalizations/Mental Status: []Pt alert and oriented, disheveled appearance Eye contact good. Motor activity appropriate. Speech within normal limits. Affect congruent, mood calm. Thoughts linear, logical, no signs of hallucinations or delusions. Client Response/Progress/Benefit: [] Pt was an active participant during activity and discussion. Pt did well to remain attentive and participate as group worked on identifying characteristics and benefits of adopting a growth mindset. Worked with fellow participants in reframing the example fixed thoughts into growth mindset thoughts. Pt worked on changing own fixed thought, but pt did not share what she changed it to. Pt did reported benefitting from learning about dialectical thinking. Pt appeared to benefit from challenging own thoughts and engaging in the activity. Pt will continue IOP tx to increase distress tolerance, gain heathy coping skills, and improve daily functioning. Narrative Note: []
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
--- NOTE | 2024-06-03 10:15 | BH.SGPN.GN ---
Behaviors/Verbalizations/Mental Status: [Pt alert and oriented, casually dressed and groomed. Eye contact good. Motor activity appropriate. Speech within normal limits. Affect congruent, mood engaged. Thoughts linear, logical, no signs of hallucinations or delusions. Client Response/Progress/Benefit: [] Pt was attentive during psychoeducation and participated in group activity. Group discussed what contributes to a person?s perspective and how perspective can positively or negatively impact mental health treatment. Pt reflected on their perspective today and how it is impacting them. Pt shared their perspective today is being more negative but trying to be hopeful. Pt shared ?I have so far to go, and it makes me not want to work on it.? Pt appeared to benefit from increasing awareness of different perspectives and how they can affect mental health. Pt will continue IOP tx to promote mood stability, increase distress tolerance skills, and increase distress tolerance skills. ?? Narrative Note: []
--- NOTE | 2024-06-03 11:10 | BH.SGPN.GN ---
Behaviors/Verbalizations/Mental Status: []Pt alert and oriented, casually dressed and groomed. Eye contact good. Motor activity appropriate. Speech within normal limits. Affect congruent, mood content. Thoughts linear, logical, no signs of hallucinations or delusions. Client Response/Progress/Benefit: []Pt was attentive and contributed to group discussion. Pt worked with group to identify strategies that can help with challenging negative perspective. Pt stated she can remind herself that things take time as a way to challenge negative perspective. Pt completed strengths exploration worksheet, identifying her personal strengths. Pt able to acknowledge how these strengths are helping pt and can continue to help pt in mental health journey. Pt identified wanting to work on leaning on strength of love of learning and practice the skill of taking one step at a time. Benefited from identifying personal strengths and strategies for enhancing use of identified strengths. Pt will continue IOP tx to challenge distortions, increase healthy coping, and prevent decompensation.
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
--- NOTE | 2024-06-12 09:05 | BH.SGPN.GN ---
Behaviors/Verbalizations/Mental Status: [] ?Pt alert and oriented, casually dressed and groomed. Eye contact good. Motor activity appropriate. Speech within normal limits. Affect congruent, mood depressed. Thoughts linear, logical, no signs of hallucinations or delusions. Reviewed pt?s symptom tracker, no risk for suicidal ideation, plan, or intent 06/12/24 Client Response/Progress/Benefit: []Pt receptive of session, engaged throughout and appearing to benefit from group support and encouragement. Identified current mental health wins as getting to group today despite her recent admission for medical reasons. Noted that having the group support is helpful and allows pt space to process her emotions in healthier ways. Shared that her physical health continues to be a stressor but did well to identify a win as continuing to advocate for herself in this regard. Benefited from group supportive feedback, encouragement, and support. Recommended continued IOP tx to prevent decompensation, improve mood stability, and promote skill application. Narrative Note: []
--- NOTE | 2024-06-12 09:21 | BH.TPR ---
Treatment Plan Review Demographics Date of Admission:: 05/21/24 Date of Treatment Plan Review:: 06/12/24 Admitting Diagnoses:: 1. Major depressive disorder, recurrent, severe without psychosis 2. PTSD 3. Panic disorder 4. Borderline personality disorder Current Diagnoses:: 1. Major depressive disorder, recurrent, severe without psychosis 2. PTSD 3. Panic disorder 4. Borderline personality disorder Patient Status Patient's Response to Treatment:: Pt has responded well to session AEB consistently attending IOP, outside of recent medical related cancellations due to pt being in ICU, and engaging in both individual and group therapy sessions. Pt consistently completes homework provided from individual counseling. Pt contributes during group discussions, takes notes, appears to listen to others, and engages in group activities. Pt's overall DSM-5 scores have decreased by 12% since admission. Pt has also been coping with several psychosocial stressors and is proud these have not resulted in additional worsening of sx. Status of Current Problems and Symptoms: Pt's stressors with her managing her physical health issues and caregiving for her stepdaughter are ongoing. Pt continues to report symptoms of anxiety, depression, and irritability that impact her daily functioning, especially her ability to concentrate on her own self-care when feeling responsible for addressing ongoing issues with her stepdaughter?s behaviors. Pt also reports difficulty with feeling like a burden due to her physical health related issues. Progress Problem #1: Problem Name:: Depression, mood stability Status of Goals:: Objective 1-complete with ongoing work encouraged. Pt?s depression has decreased by 17% per the DSM-5. Pt?s anger has however maintained since admission. Pt reports medication and utilizing healthier communication strategies have been helpful. Pt does continue to struggle with communicating self-care needs and establishing boundaries to ensure these needs are met. Objective 2- in progress. Pt is doing well with identifying and beginning to challenge negative thoughts reinforcing depression; however, recently being hospitalized has reinforced thoughts of worthlessness and being a burden. Team Recommendations:: Team recommends continued goals and objectives to reinforce skills and maintain gains made. Team recommends pt continue working on combating distortions, being more self-compassionate, and increasing social support. Problem #2: Problem Name:: Anxiety, PTSD Status of Goals:: Objective 1- in progress. Pt is doing well with identifying coping skills that reinforce anxiety and she is actively trying to replace these. For example, pt is reducing use of avoidance when anxious and attempting to communicate her needs, though continues to struggle in these areas. Attempting to remind herself that her triggers are not the event that had caused PTSD as well. Pt can still benefit from increasing distress tolerance in response to negative automatic thoughts. Objective 2- not complete. Pt?s anxiety has not decreased since admission, but pt?s anxiety has not worsened. Pt does feel that she is benefitting from validating her PTSD and gaining calming skills. Team Recommendations:: Treatment team encourages pt to continue working on distress tolerance skills and delaying her responses before reacting. Pt also encouraged to practice self-validation and acceptance skills.
--- NOTE | 2024-06-12 10:15 | BH.SGPN.GN ---
Behaviors/Verbalizations/Mental Status: []Pt alert and oriented, casually dressed and groomed. Eye contact good. Motor activity appropriate. Speech within normal limits. Affect congruent, mood calm. Thoughts linear, logical, no signs of hallucinations or delusions. Client Response/Progress/Benefit: []Pt participated in group discussion. Group worked together to identify benefits of healthy relationships which included encouragement, motivation, longer lifespan, connectedness and trust. Group identified factors that lead to unhealthy relationships which included low self-esteem, trauma, use of unhealthy skills, parent's negative relationship growing up, and co-dependence. Pt reports she has entered unhealthy relationships because I thought I was getting one thing, but then they were not that person. Benefited from increased insight and awareness of benefits of healthy relationships and factors that contribute to unhealthy relationships. Will continue in IOP to increase consistent use of healthy coping skills, gain healthy supports, and increase overall functioning. Narrative Note: []
--- NOTE | 2024-06-12 11:15 | BH.SGPN.GN ---
Behaviors/Verbalizations/Mental Status: [] Pt alert and oriented, casually dressed and fairly groomed. Eye contact fair. Motor activity appropriate. Speech within normal limits. Affect congruent, mood dysthymic, Thoughts linear, logical, no signs of hallucinations or delusions Client Response/Progress/Benefit: [] Client responded well to session, engaged and taking notes throughout. Worked with group to connect components of the experiential activity with characteristics of healthy and unhealthy relationships. Attentive during psychoeducation about characteristics of healthy, unhealthy, and abusive relationships. Client reported she would like to continue to improve with communication and trust in relationship. Appeared to benefit from identifying current healthy relationship attributes and an area client wants to work on to build healthier relationships. Client to continue IOP to improve distress tolearnce, challenge distortions, and prevent decompensations.
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
--- NOTE | 2024-06-13 10:10 | BH.SGPN.GN ---
Behaviors/Verbalizations/Mental Status: [] Eye contact is good. Motor activity is appropriate. Appearance is casual. Speech is Appropriate. Mood is content. Affect is congruent. Thoughts are linear and logical. No evidence of psychosis. Client Response/Progress/Benefit: [] Pt receptive of session, actively engaged throughout AEB taking notes, providing input, and contributing in small group discussion. Appeared to connect with group topic of automatic thoughts and cognitive distortions, as well as the impact of thought patterns on mental health, coping behaviors, and relationships. This particular group is very heavy on psychoeducation and pt appeared to connect with distortions and how they can impact functioning. Identified struggling with personalization distortion. Pt appeared to benefit from gaining insight on distorted thinking patterns and how this impacts overall mental health. Will continue IOP to stabilize mood, improve ability to function, and prevent decompensation. Narrative Note: []
--- NOTE | 2024-06-13 10:48 | BH.MDN_ITS ---
Multi-Disciplinary Note Note 45-min Individual: Time Started:: 08:15 Date: 06/13/24 Purpose of session/treatment goals addressed:: Purpose of session was to work on treatment goal #1 obj #1 and goal #2 obj #1. Eye Contact:: Good Motor Activity:: Appropriate Appearance:: Disheveled and Casual Speech:: Appropriate Mood:: Dysthymic Affect:: Congruent Thoughts:: Linear, Logical and No evidence of hallucinations/delusions noted Staff Interventions:: psychoeducation on: (Borderline Personality Disorder common causes and symptoms), CBT techniques, discharge planning (connected pt to outpatient counseling, case management, psychiatry), strengths perspective, goal setting and taught coping skills (reviewed distress tolerance skills) Client Response:: Pt responded well to session, engaged throughout. Reports doing well to recover and get back into her daily routine following recent medical hospitalization over the weekend. Pt reports feeling less nauseous today than she has in the last week, which has helped in improving her overall mood. Reports that when struggling physically, she finds it difficult to regulate her emotions and effectively apply the skills she has been learning in IOP tx. Pt when on to share an ongoing frustration as her step-daughter seeming to intentionally be more dysregulated and disruptive during times in which pt is struggling with her physical health. Provided a recent example of her step- daughter making comments that pt is ?faking it? when she was hospitalized over the weekend and struggling more with listening during that time as well. Pt reports trying not to ?feed into it? or respond to her unhelpful comments, but at times struggles with doing so. Does report use of grounding skills with recognizing she is triggered. Receptive of reviewing distress tolerance skills and identified the benefit of at times communicating that she needs aa break and changing the environment as well as applying deep breathing and grounding skills to regulate her own emotions before responding. Pt reports wanting to also have a conversation with her fianc? to discuss ways they would like to approach behavioral challenges in order to ensure they have similar expectations and create consistency. Pt open to referral information for local parenting classes as well. Described feeling she has made progress with her own communication and conflict approaches, but continues to struggle with consistent self-care. Re ports she does not feel able to independently engage in hobbies at home due to the small size of their apartment and her step-daughters difficulties in respecting pt?s need for time for herself. Receptive of communicating with her fianc? to set aside time she can leave the house to do something she enjoys. Pt interested in becoming involved with [facility] for continued local mental health peer support. Plans to reach out this week. Risks/Concerns:: Pt denies SI, plan, or intent as of this date 06/13/24 Progress Toward Goals/Plan:: Progress continues to remain variable due to recent inpatient medical hospitalization for DKA. Pt reports being sick has impacted her mood, energy levels, and motivation. However, she is beginning to regain these. Reports improvement in her interpersonal relationships as a result of more effective communication and conflict resolution skills. Pt reports improved ability to apply Delay, Distract, Decide skill before responding out of emotion when feeling triggered as well. Does continue to indicate difficulties with self-care and asking for help from her supports. Pt recommended continued IOP tx to improve mood stability, encourage self-care practices, and prevent decompensation. Time Stopped:: 09:00
--- NOTE | 2024-06-13 11:10 | BH.SGPN.GN ---
Behaviors/Verbalizations/Mental Status: [] Eye contact is good. Motor activity is appropriate. Appearance is casual. Speech is Appropriate. Mood is content. Affect is congruent. Thoughts are linear and logical. No evidence of psychosis. Client Response/Progress/Benefit: [] Pt was an active participant during group discussion. Pt was placed in a smaller group and participated in combatting example distortions with peers. Pt was engaged in the smaller group, participated in group interactions to brainstorm answers, and appeared to be comprehending cognitive distortions. Pt stated could connect with many of the distortions covered in group. Pt stated they have learned about cognitive distortions they have and didn't realize before this group. Benefited from gaining further insight and awareness of cognitive distortions as well as practicing ways to reframe and challenge thoughts. Will continue in IOP tx to regulate emotions, increase functioning, and prevent decompensation. Narrative Note: []
--- NOTE | 2024-06-17 09:05 | BH.SGPN.GN ---
Behaviors/Verbalizations/Mental Status: [] Eye contact is good. Motor activity is appropriate. Appearance is casual. Speech is Appropriate. Mood is anxious. Affect is congruent. Thoughts are linear and logical. No evidence of psychosis. Reviewed daily check in sheet and no reports of suicidal ideations or intent. Client Response/Progress/Benefit: [] Pt was an active participant in group discussions. Attentive. ? I had a very stressful situation this morning?. She briefly elaborated on the situation and her response. Proud of herself for managing the situation appropriately and not allowing it to cause significant distress and mental health decompensation. Through IOP she has learned to benefits of self-care on her physical and mental health and has started to incorporate more of this in her daily life. Mood today is ?rattled?. Progress noted. Benefited from group support, encouragement, and feedback. Will continue in IOP to prevent decompensation, stabilize mood, and increase healthy coping. Narrative Note: []
--- NOTE | 2024-06-17 10:15 | BH.SGPN.GN ---
Behaviors/Verbalizations/Mental Status: []Eye contact is good. Motor activity is appropriate. Appearance is disheveled Speech is Appropriate. Mood is stressed. Affect is congruent. Thoughts are linear and logical. No evidence of psychosis. Client Response/Progress/Benefit: [] Pt participated, AEB taking notes and providing input in group discussion when prompted. Attentive during psychoeducation. Pt engaged during interactive discussion in which the group defined self-care and discussed its benefits. Group discussed barriers to engaging in self-care. Group members together came up with not having time, it being selfish, not feeling like they deserve it, and not having energy. Pt stated their personal barrier is feeling like she does not deserve self-care like other people. Pt participated in small groups where they worked to identified and challenged common self-care ?myths?. Benefited from increased awareness of self-care, its benefits, and the consequences of not utilizing self-care strategies. Will continue IOP tx to promote mood stability, increase self-confidence, and improve daily functioning. Narrative Note: []
--- NOTE | 2024-06-17 11:15 | BH.SGPN.GN ---
Behaviors/Verbalizations/Mental Status: []Eye contact is good. Motor activity is appropriate. Appearance is disheveled. Speech is Appropriate. Mood is stressed. Affect is congruent. Thoughts are linear and logical. No evidence of psychosis. Client Response/Progress/Benefit: []Pt engaged in discussion reviewing different areas of self-care and completing self-assessment of current self-care, as well as providing input throughout discussion. Did well to complete self-care self-assessment worksheet. Pt identified current self-care practices and what self-care activities Pt wants to start using. Pt selected emotional self-care as the area pt wants to improve and she will do this by expressing her emotions more consistent before she ?blows up.? Appeared to benefit from completing the self-care evaluation and gaining insights into current self-care practices, as well as identifying areas in which Pt would like to improve upon. Pt will continue IOP tx to promote mood stability, increase self-confidence, and improve daily functioning. Narrative Note: []
--- NOTE | 2024-06-19 10:10 | BH.SGPN.GN ---
Behaviors/Verbalizations/Mental Status: [] Client alert and oriented, casually dressed and groomed. Eye contact fair. Motor activity appropriate. Speech within normal limits. Affect congruent, mood anxious. Thoughts linear, logical, no signs of hallucinations or delusions. Client Response/Progress/Benefit: [] Pt responded well to session AEB sharing and listening attentively to others. Group provided examples of benefits of having social support, including: validation, get assistance, and accountability. Pt also participated in group discussion regarding the barriers to accessing support. Pt shared personal barriers to support include: self-doubt, anger, and self-sabotage. Pt participated in experiential activity illustrating the impact communication, boundaries, and patience play in creating healthy support systems. Pt appeared to benefit from increased knowledge of the benefits of social support and greater self-awareness. Pt to continue IOP to increase consistent use of healthy coping skills, improve distress tolerance, and prevent decompenation.
--- NOTE | 2024-06-19 11:15 | BH.SGPN.GN ---
Behaviors/Verbalizations/Mental Status: []Client alert and oriented, disheveled appearance. Eye contact good. Motor activity appropriate. Speech within normal limits. Affect congruent, mood euthymic. Thoughts linear, logical, no signs of hallucinations or delusions. Client Response/Progress/Benefit: []Pt participated throughout AEB contributing to discussion, providing personal examples, and taking notes. Pt provided input during discussion on the types of support our supports can provide. Pt able to identify current support system and barriers that get in the way of using supports. Pt reported after identifying what type of supports pt receives, pt gained awareness that pt could benefit from more tangible support. Pt recognizes that she struggles with asking for help with daily tasks and doing this more would reduce her anxiety levels. Pt seemed to benefit from identifying the type of support pt needs to work on improving. Pt recommended to continue IOP tx as pt can benefit from increasing distress tolerance skills and further improve daily functioning. Narrative Note: []
--- NOTE | 2024-06-19 12:29 | PCM.BH.PN_ITS ---
Progress Note Progress Note: History of Present Illness/Interim History: The patient is a 28-year-old female with a history of depression, anxiety, PTSD, borderline personality disorder, poorly controlled diabetes mellitus type 1 and gastroparesis who is seen in follow-up at the [facility] behavioral health IOP. I last saw the patient 1 week ago and at that time Remeron was started at 15 mg at bedtime. The patient states that the Remeron does make her somewhat tired and she has not noticed much improvement in her anxiety or depression yet. She states that her roommate thinks she has been more irritable or angry lately but the patient is not connected me that with her Remeron. She does admit that her nausea has improved on the Remeron and her appetite is better. She vomited 1 time in the past week. Mood remains depressed overall with sadness, occasional hopelessness, worthlessness, guilt and low energy. Sleep is a little better sleeping maybe 5 or 6 hours a night but wakes up at times and then sometimes naps during the day. Panic attacks continue several times a week. She denies passive thoughts of , suicidal ideation, plan for suicide, homicidal ideation, hallucinations or delusions. She does admit to some thoughts of self- harm by cutting lately but she has not engaged in any self-harm and this is not unusual for her to have these thoughts. Current Psychiatric Medications: [] Remeron 15 mg p.o. nightly (x 1 week); discontinued Zyprexa 2 weeks ago due to side effects. Mental Status Examination: [] Patient is a 28-year-old female who appears normal for stated age and is casually dressed and groomed with fair hygiene. She is cooperative during the interview and has no psychomotor agitation or retardation. Eye contact is good and speech is normal rate and rhythm and fluent with no pressure. Mood is depressed. Affect is mildly constricted. Thought process is goal-directed and organized. Thought content: Patient tends to have side effects on many medications. She has not noticed much improvement yet but its only been 1 week and there is no evidence of pas sive thoughts of , plan for suicide, suicidal ideation, homicidal ideation, hallucinations or delusions. Reality testing is intact. Intelligence is average or below. Judgment is intact. Insight is limited. Impulsivity is moderate. Diagnoses: [] 1. Major depressive disorder, recurrent, severe without psychosis 2. PTSD 3. Panic disorder 4. Borderline personality disorder 5. Primary support and legal/child visitation issues Plan: [] The patient will continue the IOP and behavioral health at [facility] as the structure, support, education and group therapy will h opefully prevent worsening of the patient's symptoms. She felt safe during the interview and if it anytime she does not feel safe she agrees to let us know or go to the emergency room. The risk, options, possible complications and side effects of medications were discussed again with the patient and she understands accepts these. She agrees to continue the Remeron to give it more time to see if it helps her anxiety, depression and nausea more. BuSpar is added as the patient feels she did well on this in the past and prescription is sent in for this. She will continue to follow-up with her outpatient providers and I will see the patient in follow-up in 2 weeks.
--- NOTE | 2024-06-19 14:15 | BH.COMM_ITS ---
Communication Note Communication with Client Communication Note: Discussed new prescriptions ordered for pt with Dr. Vera. Order given to discontinue bisoprolol fumarate and order Buspar 5mg BID. This nurse called pt and she has not yet picked up the new prescription. [facility] was called at this time and bisoprolol prescription cancelled and telephone order given for Buspar 5mg BID 60 tablets with no refills per Dr. Lomeli instruction.
--- NOTE | 2024-06-19 15:31 | BH.MDN ---
Multi-Disciplinary Note Note 45-min Individual: Time Started:: 08:56 Date: 06/19/24 Purpose of session/treatment goals addressed:: Purpose of session was to work on treatment plan goal #1, obj's #1 and goal # 2 obj #2. Eye Contact:: Good (tearful) Motor Activity:: Appropriate Appearance:: Casual Speech:: Appropriate Mood:: Dysthymic Affect:: Congruent Thoughts:: Linear, Logical and No evidence of hallucinations/delusions noted Staff Interventions:: psychoeducation on: (BPD relationship cycle), CBT techniques, strengths perspective, goal setting and taught coping skills (reviewed distress tolerance skills) Client Response:: Pt receptive of session, open to discussing sx and stressors impacting her mental health. Shared feeling more irritable recently and noted that this has begun to impact her relationships. Pt provided insight that her ongoing physical health issues, fatigue, and recent stressors may be contributing to increased irritability. Described a recent new stressor as someone she has had conflict with in the past began attending her regular Monday AA meeting. Pt was not at the meeting yesterday due to illness but was informed by her fianc? that he had been there and had made threatening comments to pt?s soon-to-be stepdaughter. Pt described anger and anxiety regarding this but went on to identify what is within her control to address her concerns without escalating the situation. Recognized she can discuss her concerns with the agency staff, attend a different meeting day/time, as well as avoid contact with him if possible. Pt went on to discuss struggling with emotion regulation when watching her stepdaughter while her fianc? works. Discussed initially doing well but becomes easily dysregulated if her stepdaughter does not listen to what pt is asking her to do or breaks an established rule. Shared this has created tension within the relationship with her fianc? and escalates pt?s irritability levels. Pt became tearful and reports not wanting to self-sabotage the relationship due to her difficulties with managing her emotions. Receptive of reviewing distress tolerance skills and states she and her fianc? had discussed handing off disciplinary responsibilities for pt to take a break when recognizing she is becoming triggered. Reports ongoing difficulties in following through with independent self-care as she struggles with putting other?s needs before her own. Did well to challenge these thoughts and created a personal self-care goal for tomorrow to spend time outside the home walking in nature. Risks/Concerns:: Pt denies SI, plan, or intent as of this date 06/19/24 Progress Toward Goals/Plan:: Progress continues to remain variable due to ongoing difficulties in consistently applying skills. Pt continues to struggle with mood stability, specifically during times when she is caregiving or experiencing increased stress. Reports increased interpersonal conflict as a result, however, does note continued communication with her fianc? to reduce further increasing the conflict. Continues to struggle with consistent self-care as well. Pt recommended continued IOP tx to improve mood stability, encourage self-care practices, and prevent decompensation. Time Stopped:: 09:36
--- NOTE | 2024-06-21 09:00 | BH.SGPN.GN ---
Behaviors/Bibi ?Pt alert and oriented, casually dressed and groomed. Eye contact good. Motor activity appropriate. Speech within normal limits. Affect congruent, mood content but fatigued. Thoughts linear, logical, no signs of hallucinations or delusions. Reviewed pt?s symptom tracker, no risk for suicidal ideation, plan, or intent 06/21/24 Client Response/Progress/Benefit: [] Pt was an active participant in group discussions. Attentive. Able to identify mental health wins including doing well to maintain boundaries with her step-daughter and not engage in unnecessary conflict. Additional win noted as getting to group today despite feeling more physically exhausted than usual. Identified self-care activities she can engage in after group to help restore energy. Shared that disciplining her step-daughter continues to be a stressor as she has been testing pt's boundaries lately. Reviewed skills for improving her ability to do so. Benefited from group support, encouragement, and feedback. Will continue in IOP to prevent decompensation, improve daily functioning, and increase emotion regulation skills. Narrative Note: []
--- NOTE | 2024-06-21 10:13 | BH.SGPN.GN ---
Behaviors/Verbalizations/Mental Status: [] Eye contact is fair to good. Motor activity is appropriate. Appearance is casual. Speech within normal limits. Mood is euthymic. Affect is congruent. Thoughts are linear and logical. No evidence of psychosis. Client Response/Progress/Benefit: [] Client was an active participant in group discussion and experiential activity. Attentive during psychoeducation on resilience. Participated in interactive discussion with peers on the definition of resilience and where it comes from. Group identified that resiliency can be impacted by; past experiences, upbringing, and current mental health state. Group also worked together to identify the benefits of being resilient and how it is related to mental health. Able to relate experiential activity of group juggle to topics of resilience. Worked well with peers in small group in which they identified factors that contribute to resilience. Benefited from increased awareness of resilience and the factors that contribute to building resilience. Will continue in IOP to increase self care and further promote mood stability. Narrative Note: []
--- NOTE | 2024-06-21 11:13 | BH.SGPN.GN ---
Behaviors/Verbalizations/Mental Status: [] Client alert and oriented, neatly dressed and groomed. Eye contact good. Motor activity appropriate. Speech within normal limits. Affect congruent, mood euthymic. Thoughts linear, logical, no signs of hallucinations or delusions Client Response/Progress/Benefit: [] Client responded well to session AEB completing the resilience worksheet provided. Client actively participated in the discussion and worked cooperatively with group to identify strategies to enhance each of the components discussed. Client reports belief they already use resilience trait of ?making connections.? Client discussed that they could work on taking care of themselves and nurturing a positive view of themselves. Client seemed to benefit from discussing strategies for improving personal resilience and identifying resilience traits client already possesses. Will continue IOP tx to increase self-worth and prevent decompensation. Narrative Note: []
--- NOTE | 2024-06-24 09:05 | BH.SGPN.GN ---
Behaviors/Verbalizations/Mental Status: [] Eye contact is good. Motor activity is appropriate. Appearance is disheveled. Speech is Appropriate. Mood is depressed. Affect is constricted. Thoughts are linear and logical. No evidence of psychosis. Reviewed daily check in sheet and pt reports 2/5 for suicidal ideations and 0/5 for intent which has been close to baseline. Client Response/Progress/Benefit: [] Pt was an active participant in group discussion. Attentive. Daily symptom tracker notes 4/5 for anxiety and self-harm urges. According to pt she is ?not engaging in arguments? and is using avoidance as a strategy to better manage her stress which she has found beneficial. Elaborated on ?family stressors? and how this is impacting her mental health. Some concern for decompensation however states ? I need to focus on skills?. Progress noted. Benefited from group support, encouragement, and feedback. Will continue in IOP to maintain safety, prevent decompensation, and stabilize mood. Narrative Note: []
--- NOTE | 2024-06-24 10:15 | BH.SGPN.GN ---
Behaviors/Verbalizations/Mental Status: [] Client alert and oriented, casually dressed and groomed. Eye contact good. Motor activity appropriate. Speech within normal limits. Affect congruent, mood euthymic. Thoughts linear, logical, no signs of hallucinations or delusions. Client Response/Progress/Benefit: [] Client was an active participant AEB contributing to discussion, taking notes, and engaging in group activity. Connected with the topic of pitfalls and listened to group discussion on barriers that prevent from choosing a healthier path to mental wellness. Group worked together to identify examples of personal pitfalls. Pt identified personal pitfalls to include: avoidance, isolation, self-sabotage, and self-doubt. Client benefited from group as client learned to better identify potential barriers to improving mental health symptoms. Client will continue IOP tx to improve distress tolerance, increase consistent use of healthy coping skills, and prevent decompensation.
--- NOTE | 2024-06-24 11:15 | BH.SGPN.GN ---
Behaviors/Verbalizations/Mental Status: []Client alert and oriented, disheveled appearance. Eye contact good. Motor activity appropriate. Speech within normal limits. Affect congruent, mood euthymic. Thoughts linear, logical, no signs of hallucinations or delusions. Client Response/Progress/Benefit: [] Pt receptive of session, engaged throughout AEB Pt actively listening and contributing to discussion as well as taking notes.? Pt participated in the experiential activity and did well to communicate ideas with peers and manage emotions. Pt attentive as group processed how the emotions and perspective of the group impacted the activity. Group worked together to identify different coping skills to help manage pitfalls. Pt identified pitfall they struggle with as urge to control. Pt plans to work on their pitfall by ?actually doing self-care.? Benefited from identifying personal pitfalls and strategies to overcome these pitfalls. Pt will continue IOP tx to promote use of healthy coping skills, improve daily functioning, and reduce negative thinking patterns. Narrative Note: []
--- NOTE | 2024-06-26 09:05 | BH.SGPN.GN ---
Behaviors/Verbalizations/Mental Status: [] Client alert and oriented, disheveled in appearance. Eye contact fair. Motor activity appropriate. Speech within normal limits. Affect congruent, mood dysthymic. Thoughts linear, logical, no signs of hallucinations or delusions. Reviewed client's symptom tracker, no risk for suicidal ideation, plan, or intent. Client Response/Progress/Benefit: [] Client responded well to session AEB listening to others and sharing thoughts/feelings. Client stated she has been holding boundaries with her stepdaughter which she notes as a mental health when because she can struggle with doing so. Client reported additional mental positive as using naps to action today to help her stop the IOP because she had a desire to stay home. Client reported she recognizes when she comes to IOP she does end up feeling better. Client stated current stressor as having an increased desire to isolate recently and not understanding why. Client stated as a way to try to cope with this feeling she has been playing video games and trying to enjoy little things. Appeared to benefit from support from peers. Will continue IOP tx to increase consistent use of healthy coping skills, challenge distorted negative thoughts, and prevent decompensation. Narrative Note: []
--- NOTE | 2024-06-26 10:10 | BH.SGPN.GN ---
Behaviors/Verbalizations/Mental Status: [] Pt alert and oriented, disheveled. Eye contact good. Motor activity appropriate. Speech within normal limits. Affect congruent, mood depressed and anxious. Thoughts linear, logical, no signs of hallucinations or delusions. Client Response/Progress/Benefit: [] Pt an active participant in group discussions on defining conflict (internal/external) and possible benefits to conflict. Attentive during psychoeducation on conflict styles (avoidant, accommodating, competing, cooperative) and engaged during group discussion in which peers identified the benefits and consequences to each conflict style. Pt identified that she tends to be avoidant in her communication and wants to stop being avoidant when not needed . Benefited from increased awareness of the impact of conflict styles in mental health. Will continue in IOP tx for one more day to prevent decompensation, increase healthy coping, and improve functioning. Narrative Note: []
--- NOTE | 2024-06-26 11:10 | BH.SGPN.GN ---
Behaviors/Verbalizations/Mental Status: []Eye contact is good. Motor activity is appropriate. Appearance is casual. Speech is Appropriate. Mood is dysthymic. Affect is congruent. Thoughts are linear and logical. No evidence of psychosis. Client Response/Progress/Benefit: [] Pt was an active participant in group discussions and activity. Engaged with peers in activity and identifying healthy ways to approach each conflict scenario. Group discussed various conflict resolution skills that can be useful in addressing conflict outside of IOP. Benefited from practicing and learning conflict resolution skills during group activity. Able to identify areas pt wants to work on to improve how pt manages conflict both internally and externally. Expressed wanting to work on their communication skills with their partner to prevent conflict avoidance. Will continue in IOP to maintain mood stability, improve consistency in application of skills, and prevent decompensation. Narrative Note: []
== END 2024-06-27 23:59 ==
LOC: BHIOP 08:05
PROVIDERS: Referring Provider Psychiatry & Neurology Psychiatry; Visit Provider Psychiatry & Neurology Psychiatry
DX: F33.2 Major depressive disorder, recurrent severe without psychotic features (principal); F43.10 Post-traumatic stress disorder, unspecified; F41.0 Panic disorder [episodic paroxysmal anxiety]; F60.3 Borderline personality disorder; Z79.899 Other long term (current) drug therapy
CPT/HCPCS: S9480; 90834; 90853

== ENCOUNTER 2024-06-07 13:00 | Inpatient (IN) | payer MEDICARE, MEDICAID, SELFPAY ==
[2024-06-07 13:01] VITALS: BP 106/36; PULSE 50; RESP 16; TEMP 35.8; O2SAT 100; BMI 24.8
--- NOTE | 2024-06-07 14:02 | CT_ITS ---
STUDY: CT ABDOMEN AND PELVIS WITH CONTRAST REASON FOR EXAM: Female, 28 years old. LLQ pain. History of gastroparesis. Vomiting. RADIATION DOSAGE (If Supplied By Facility): CTDIvol = ( 12.24 ) mGy, DLP = ( 759.26 ) mGycm TECHNIQUE: Transaxial images were obtained from the dome of the diaphragm to the symphysis pubis without oral contrast. IV 75mL Isovue-370 was administered. Sagittal and coronal images were reconstructed. Individualized dose optimization techniques were used for this CT. Patient motion artifacts. COMPARISON: Comparison is made with prior study dated August 06, 2023. FINDINGS: The visualized lung bases are unremarkable. Prior midline sternotomy. Normal liver. Normal gallbladder and extrahepatic biliary system. Normal spleen. Normal pancreas. Normal bilateral adrenal glands. Normal right kidney. Normal left kidney. Normal visualized stomach. Persistent inflammatory changes are seen in the distal ileum. This has improved as compared to prior study. Localized ileitis should be ruled out. Normal colon. The appendix is visualized and appears normal. Normal abdominal aorta. Normal inferior vena cava. Normal retroperitoneum. Normal urinary bladder. Small follicles are seen in both ovaries. Normal abdominal wall. Normal osseous structures. CT/Abdomen/Pelvis W IV Cont ONLY IMPRESSION: Findings suggestive of inflammatory changes in the distal ileum suggestive of ileitis. This has improved as compared to prior study. Electronically Signed: Nicho Monahan MD at 15:24 EDT ,
[2024-06-07 14:12] LABS: Bacteria 0 SEEN /hpf (None Seen); Mucous, Urine 0 SEEN /hpf (<or=2+); Red Blood Cells-Urine 0 SEEN /hpf (0-5); Squamous Epithelial Cells - UA 0 SEEN /hpf (5-10); White Blood Cells 0 SEEN /hpf (0-5)
[2024-06-07 14:15] LABS: Absolute Lymphocyte Count 0.76 X10^3/uL (0.83-4.51); Absolute Neutrophil Count 14.6 X10^3/uL (2.0-7.7); Basophil# 0.05 X10^3/uL; Basophil% 0.3 % (0-1); Hematocrit 39.5 % (37-47); Hemoglobin 13.4 g/dL (12.0-15.0); Lymphocyte # 0.76 X10^3/ul (0.83-4.51); Lymphocyte % 4.8 % (19-41); Mean Corp Hgb Conc 33.9 g/dL (32-36); Mean Corpuscular Hgb 29.2 pg (27.0-32.0); Mean Corpuscular Volume 86.1 fL (81-99); Mean Platelet Vol. 13.6 fl (6.2-12.0); Monocyte# 0.42 X10^3/uL; Monocyte% 2.6 % (0-10); NRBC Flagged by Analyzer 0 % (0-5); Neutrophil # 14.58 X10^3/uL (2.7-7.7); Neutrophil % 91.4 % (47-70); Platelet Count 167 K/mm3 (150-450); RBC Distribution Width CV 12.3 % (11.6-14.6); RBC Distribution Width SD 38.5 fl (35.1-43.9); Red Blood Count 4.59 M/mm3 (4.2-5.4)
[2024-06-07] MEDS: Metoclopramide 10 MG/2 ML Vial IV (14:18)
[2024-06-07] MEDS: 0.9% Normal Saline (1000mL) 1,000 ML 999 ML IV (14:18)
[2024-06-07 14:19] LABS: Color, Urine Yellow (Yellow); Glucose, Dipstick 1000 mg/dl (Normal); Leukocyte Esterase-Dipstick Negative /ul (Negative); Nitrite-Dipstick Negative (Negative); Occult Blood-Urine Negative /ul (Negative); Protein-Dipstick 30 mg/dl (Negative); Urine Bilirubin Dipstick Negative (Negative); Urine Clarity Sl. Cloudy (Clear); Urine Urobilinogen Normal (Normal)
[2024-06-07 14:20] LABS: Ketone-Dipstick 150 mg/dl (Negative)
[2024-06-07 14:31] LABS: ALB/GLOB Ratio 1.2 RATIO (0.9-2.4); AST(SGOT) 15 U/L (15-37); Alanine Aminotransfer ALT/SGPT 25 U/L (13-56); Albumin, Serum 4.1 g/dL (3.2-5.0); Alkaline Phosphatase 87 U/L (45-117); Anion Gap 14 (5-15); BUN 18 mg/dL (7-18); BUN/Creat Ratio 19.1 RATIO (10-20); Calcium,Total 9.5 mg/dL (8.5-10.1); Chloride 105 mmol/L (98-107); Creatinine, Serum 0.94 mg/dL (0.55-1.02); EST Glomerular Filtration Rate 74 mL/min (>60); Est Glom Filt Rate - Afr Amer 90 mL/min (>60); Estimated Creatinine Clearance 92.29 ml/min; Globulin 3.5 g/dL (2.2-4.2); Glucose 355 mg/dL (74-106); Lipase 10 U/L (13-75); Potassium 3.4 mmol/L (3.5-5.1); Protein, Total 7.6 g/dL (6.4-8.2); Sodium Level 136 mmol/L (136-145); Troponin-I HS 4 pg/mL (3.0-54.0)
[2024-06-07 14:34] LABS: Internal QC Validated? YES +Cl - CLEAR BKGD; Pregnancy, Urine Negative Negative
[2024-06-07 15:00] VITALS: BP 138/61; PULSE 56; RESP 22; O2SAT 98
[2024-06-07 15:17] LABS: Bedside Glucose 331 mg/dL (74-106)
--- NOTE | 2024-06-07 16:25 | EDS_ITS ---
HPI History of Present Illness Chief Complaint: Nausea/Vomiting Narrative Narrative: Patient is a 28-year-old female with past medical history of depression, gastroparesis, diabetes, PTSD, borderline personality disorder who presents to the emergency department chief complaint of nausea vomiting and abdominal pain. Patient states that her symptoms started today and she has had several episodes of nausea vomiting and not tolerating oral intake which prompted her here for further evaluation management. Patient states that she did not take anything prior to arrival. Patient states that she does have a marijuana card and does smoke marijuana. Patient denies any recent sick contacts. Patient rates her abdominal pain a 7 out of 10. [facility] Medical History Panic disorder Major depressive disorder, recurrent severe without psychotic features Diabetic gastroparesis Substance abuse Kidney stones Kidney disease Smoker Intractable vomiting Type 1 diabetes Marfan syndrome PTSD (post-traumatic stress disorder) Borderline personality disorder Home Medications ?Medication ?Instructions ?Recorded ?Last Taken ?Type insulin lispro 100 unit/mL See Rx Instructions .Route .COMPLEX 04/27/23 09/20/23 History subcutaneous solution (Humalog U-100 Insulin) pen needle, diabetic 29 gauge x #100 ea 08/10/23 Unknown Rx 1/2 (Ultra-Thin II Insulin Pen [place]) promethazine 25 mg tablet 25 mg PO Q6H PRN nausea and 10/25/23 10/24/23 History vomiting prochlorperazine maleate 5 mg 5 mg PO Q6H PRN nausea and vomiting 02/07/24 Unknown History tablet (Compazine) risankizumab-rzaa 150 mg/mL 150 mg subcut .[id number] 02/07/24 Unknown History subcutaneous pen injector (Skyrizi) olanzapine 2.5 mg tablet (Zyprexa) 2.5 mg PO QHS 30 days #30 tabs 05/22/24 Unknown Rx Allergy/AdvReac Type Severity Reaction Status Date / Time adhesive tape Allergy Intermediate Rash Verified 06/07/24 13:04 cephalexin (From Keflex) Allergy Intermediate Other Verified 06/07/24 13:04 morphine Allergy Intermediate Rash Verified 06/07/24 13:04 oxycodone (From Percocet) Allergy Intermediate Rash Verified 06/07/24 13:04 ondansetron AdvReac I BLACK Verified 06/07/24 13:04 OUT AND LOSE CONTROL OF MY BLADDER Surgical History History of loop recorder Hx of appendectomy Hx of eye surgery H/O aortic root repair Social History Smoking Status: Current some day smoker tobacco type: cigarettes and e-cig arettes substance use type: marijuana ROS ROS ED ROS Narrative Constitutional: Denies any fevers, chills, headaches, lightness, dizziness Eyes: Denies change in vision double vision blurry vision Cardiovascular: Denies chest pain or palpitation Respiratory: Denies coughing wheezing shortness of breath Abdomen: Complains of abdominal pain nausea vomiting as noted above : Denies any painful induration, hematuria, polyuria denies possibility Neurological: Denies numbness, weakness, tingling Musculoskeletal: Denies back pain Skin: Denies rashes or lesions EXAM Physical Exam Narrative Exam Narrative: General: Patient. Be uncomfortable with emesis bag in hand actively vomiting Head: Atraumatic, normocephalic Eyes: PERRL bilaterally, EOMI bilateral, no conjunctival injection noted Neck: Soft, supple, trachea Cardiovascular: Regular rate and rhythm no murmurs gallops rubs and Respiratory: Clear to auscultation bilaterally no rales rhonchi or wheezes no Abdomen: Soft, nondistended, nontender to palpation, bowel sounds present x 4 Extremities: +5/5 strength noted in the bilateral lower extremities, no pedal edema no exam, radial pulses +2/4 in bilateral extremities Neurological: Patient follow commands knew that she was at [facility] there is 2023 Skin: Warm, dry, intact Const Vital Signs: 06/07/24 13:01 06/07/24 15:00 06/07/24 17:00 Temperature 96.4 F L Temperature Source Temporal Pulse Rate 50 L 56 L 56 L Respiratory Rate 16 22 H 16 Blood Pressure 106/36 L 138/61 H 128/78 H Blood Pressure Mean 59 86 94 Pulse Ox 100 98 98 Oxygen Delivery Method Room Air Room Air Room Air 06/07/24 17:18 Temperature 98 F Temperature Source Pulse Rate 56 L Respiratory Rate 16 Blood Pressure 125/86 H Blood Pressure Mean 99 Pulse Ox 99 Oxygen Delivery Method MDM MDM MDM Narrative Medical decision making narrative: Patient is a 28-year-old female who presented to the emerged part with a chief complaint of nausea vomiting abdominal pain. Patient will have workup performed here on the differential diagnose includes but limited to DKA, pneumonia, viral gastroenteritis, hyperemesis secondary to cannabis abuse, pancreatitis, . Once workup is obtained reviewed she will be reevaluated. Patient will be given IV fluids, Reglan. Once workup is obtained reviewed she will be reevaluated. Patient CBC reviewed and did reveal a leukocytosis of 16,000, hemoglobin was 13.4, platelet count normal 164. Patient's CMP reviewed showed a sodium 136, potassium of 3.4, creatinine normal at 0.94. Her anion gap was normal at 14. Her glucose was elevated 355. Patient total bilirubin was noted to be elevated 1.30 however she has normal AST and ALT at 1524 respectively. Patient's troponin normal at 4. Patient's lipase was noted to be 10. Patient's urinalysis was significant for thousand glucose with 150 ketones no evidence of infection. Patient CT abdomen pelvis with IV contrast was reviewed and showed findings suggestive inflammatory change in the distal ileum suggestive of ileitis this has improved compared to previous studies according radiology. On reevaluation the patient she is still having significant pain as well as nausea vomiting not tolerating oral intake. I do believe she will warrant admission for this. Patient case will be discussed with hospitalist for admission and concerns for her going into DKA. Patient case discussed with hospitalist Dr. Lobo who accept patient for admission. Patient was notified she is agreeable this plan all question concerns answered at bedside. Lab Data Labs: Laboratory Results - last 24 hr 06/07/24 06/07/24 06/07/24 13:25 14:09 14:59 WBC 16.0 H RBC 4.59 Hgb 13.4 Hct 39.5 MCV 86.1 MCH 29.2 MCHC 33.9 RDW Std Deviation 38.5 RDW Coeff of Joyce 12.3 Plt Count 167 MPV 13.6 H Immature Gran % (Auto) 0.900 Neut % (Auto) 91.4 H Lymph % (Auto) 4.8 L [place] % (Auto) 2.6 Eos % (Auto) 0.0 Baso % (Auto) 0.3 Absolute Neuts (auto) 14.6 H Absolute Lymphs (auto) 0.76 L Nucleated RBC % 0 Sodium 136 Potassium 3.4 L Chloride 105 Carbon Dioxide 17.0 L Anion Gap 14 BUN 18 Creatinine 0.94 Estim Creat Clear Calc 92.29 Est GFR (MDRD) Af Amer 90 Est GFR (MDRD) Non-Af 74 BUN/Creatinine Ratio 19.1 Glucose 355 H Calcium 9.5 Total Bilirubin 1.30 H AST 15 ALT 25 Alkaline Phosphatase 87 Troponin I High Sens 4 Total Protein 7.6 Albumin 4.1 Globulin 3.5 Albumin/Globulin Ratio 1.2 Lipase 10 L Urine Color Yellow Urine Clarity Sl. Cloudy Urine pH 8.0 Ur Specific [place] 1.010 Urine Protein 30 H Urine Glucose (UA) 1000 H Urine Ketones 150 A* Urine Occult Blood Negative Urine Nitrite Negative Urine Bilirubin Negative Urine Urobilinogen Normal Ur Leukocyte Esterase Negative Urine RBC 0 SEEN Urine WBC 0 SEEN Ur Squamous Epith Cells 0 SEEN Urine Bacteria 0 SEEN Urine Mucus 0 SEEN Urine Test Negative POC Glucose 331 H Radiography Diagnostic Testing: Clinical Impression(s) from Imaging Studies Abdomen/Pelvis CT 06/07/24 14:02 IMPRESSION: Findings suggestive of inflammatory changes in the distal ileum suggestive of ileitis. This has improved as compared to prior study. Electronically Signed: Nicho Monahan MD at 15:24 EDT , Discharge Plan Triage Chief Complaint: Nausea/Vomiting ED Provider: Christian Frederick Dx/Rx/DC Orders Clinical Impression: Intractable nausea and vomiting, Intractable abdominal pain Prescriptions: No Action insulin lispro [Humalog U-100 Insulin] 100 unit/mL solution See Rx Instructions .ROUTE .COMPLEX Patient Comments: use IN THE INSULIN PUMP FOR A TOTAL DAILY DOSE OF 100 UNITS Rx Instructions: 100 U VIA PUMP DAILY; BASAL RATE - 1.8 UNITS/HOUR BOLUS: CARB RATIO- 1 UNIT /10 GRAMS OF CARBS CORRECTION- 1 UNIT FOR EVERY 30MG/DL BLOOD GLUCOSE OVER 120 (DME) pen needle, diabetic [Ultra-Thin II Ins Pen [place]] 29 gauge x 1/2 needle See Rx Instructions .Route Qty: 100 0RF Rx Instructions: As directed promethazine 25 mg tablet 25 mg PO Q6H PRN (Reason: nausea and vomiting) Patient Comments: TAKE 1 TABLET BY MOUTH EVERY 6 HOURS NEEDED Skyrizi 150 mg/mL pen injector 150 mg subcut .[id number] prochlorperazine maleate [Compazine] 5 mg tablet 5 mg PO Q6H PRN (Reason: nausea and vomiting) olanzapine [Zyprexa] 2.5 mg tablet 2.5 mg PO QHS 30 Days Qty: 30 0RF Primary Care Provider: Care Physician,No Primary Referrals: Care Physician,No Primary [Primary Care Provider] - Print Language: Libyan
[2024-06-07] MEDS: proCHLORPERazine 10 MG/2 ML Vial IV (16:28)
[2024-06-07 17:00] VITALS: BP 128/78; PULSE 56; RESP 16; O2SAT 98
[2024-06-07 17:18] VITALS: BP 125/86; PULSE 56; RESP 16; TEMP 36.6; O2SAT 99
--- NOTE | 2024-06-07 18:52 | PCM.HP.STD ---
HPI - General General Date of Admission: 06/07/24 Date of Service: 06/07/24 Chief Complaint: Abd pain, n/v HPI Narrative THEODORE VILLA, is a 28 F with history of marijuana use, gastroparesis, diabetes, PTSD who presented [facility] ED 06/07/2024 with abdominal pain, nausea, vomiting that started today. She was not able to take anything significant by mouth due to the nausea and vomiting prompting her to come to the ED. In the ED she was vitally stable, white blood cell count 16, potassium 3.4, bicarb 17, glucose 355. UA not suggestive of UTI. Given patient's abdominal pain and difficulty tolerating p.o. hospitalist contacted for admission. she reports she has a medical marijuana card and does smoke marijuana routinely usually every couple of days but reports not having an episode like this for couple months now. She endorses abdominal pain started this morning and is diffuse across her abdomen and sharp in nature, nothing localized. Having nausea that is limiting her p.o. intake. Denies any diarrhea, has limited to headache and has been getting cold easy but denies any other acute or focal complaints. [facility] Medical History Panic disorder Major depressive disorder, recurrent severe without psychotic features Diabetic gastroparesis Substance abuse Kidney stones Kidney disease Smoker Intractable vomiting Type 1 diabetes Marfan syndrome PTSD (post-traumatic stress disorder) Borderline personality disorder Home Medications ?Medication ?Instructions ?Recorded ?Last Taken ?Type insulin lispro 100 unit/mL See Rx Instructions .Route .COMPLEX 04/27/23 06/06/24 History subcutaneous solution (Humalog U-100 Insulin) pen needle, diabetic 29 gauge x #100 ea 08/10/23 Unknown Rx 1/2 (Ultra-Thin II Insulin Pen [place]) promethazine 25 mg tablet 25 mg PO Q6H PRN nausea and 10/25/23 06/07/24 History vomiting prochlorperazine maleate 5 mg 5 mg PO Q6H PRN nausea and vomiting 02/07/24 06/07/24 History tablet (Compazine) risankizumab-rzaa 150 mg/mL 150 mg subcut .[id number] 02/07/24 Unknown History subcutaneous pen injector (Skyrizi) olanzapine 2.5 mg tablet (Zyprexa) 2.5 mg PO QHS 30 days #30 tabs 05/22/24 06/06/24 Rx Allergy/AdvReac Type Severity Reaction Status Date / Time adhesive tape Allergy Intermediate Rash Verified 06/07/24 13:04 cephalexin (From Keflex) Allergy Intermediate Other Verified 06/07/24 13:04 morphine Allergy Intermediate Rash Verified 06/07/24 13:04 oxycodone (From Percocet) Allergy Intermediate Rash Verified 06/07/24 13:04 ondansetron AdvReac I BLACK Verified 06/07/24 13:04 OUT AND LOSE CONTROL OF MY BLADDER Surgical History History of loop recorder Hx of appendectomy Hx of eye surgery H/O aortic root repair Social History Smoking Status: Current some day smoker tobacco type: cigarettes and e-cigarettes substance use type: marijuana ROS ROS Narrative General: Denies fever, sometimes feels cold HENT: Sometimes headaches, denies stuffy nose, denies sore throat EYES: Denies acute changes in vision Resp: Denies cough, denies shortness of breath Cardiac: Denies chest pain GI: Generalized sharp abdominal pain with no diarrhea, nausea and vomiting with poor p.o. intake : Denies changes in urination Extremity: Denies swelling MSK: Denies weakness Neuro: Denies any numbness/tingling Heme: Denies any bleeding or bruising Skin: Denies rashes Psychiatric: No complaints voiced Vital Signs Vital Signs Vital Signs: 06/07/24 13:01 06/07/24 15:00 06/07/24 17:00 Temperature 96.4 F L Temperature Source Temporal Pulse Rate 50 L 56 L 56 L Respiratory Rate 16 22 H 16 Blood Pressure 106/36 L 138/61 H 128/78 H Blood Pressure Mean 59 86 94 Pulse Ox 100 98 98 Oxygen Delivery Method Room Air Room Air Room Air 06/07/24 17:18 Temperature 98 F Temperature Source Pulse Rate 56 L Respiratory Rate 16 Blood Pressure 125/86 H Blood Pressure Mean 99 Pulse Ox 99 Oxygen Delivery Method Weight Weight: 76.4 kg Body Mass Index (BMI) 24.8 Physical Exam Narrative General: Alert, oriented, resting comfortably in bed HEENT: Atraumatic, normocephalic Eyes: Anicteric, normal conjunctiva, extraocular movements grossly intact Neck: Supple Respiratory: Clear to auscultation bilaterally, normal respiratory effort Cardiovascular: Regular rate and rhythm GI: Soft, somewhat diffusely tender with no rebound, guarding, rigidity Extremities: No edema Musculoskeletal: Moving all extremities Neuro: No overt focal neurological deficits Skin: No rashes appreciated Psych: Cooperative Results Lab / Micro Data 06/07/24 13:25 06/07/24 13:25 Labs: Laboratory Results - last 24 hr 06/07/24 13:25: WBC 16.0 H, RBC 4.59, Hgb 13.4, Hct 39.5, MCV 86.1, MCH 29.2, MCHC 33.9, RDW Std Deviation 38.5, RDW Coeff of Joyce 12.3, Plt Count 167, MPV 13.6 H, Immature Gran % (Auto) 0.900, Neut % (Auto) 91.4 H, Lymph % (Auto) 4.8 L, [place] % (Auto) 2.6, Eos % (Auto) 0.0, Baso % (Auto) 0.3, Absolute Neuts (auto) 14.6 H, Absolute Lymphs (auto) 0.76 L, Nucleated RBC % 0, Sodium 136, Potassium 3.4 L, Chloride 105, Carbon Dioxide 17.0 L, Anion Gap 14, BUN 18, Creatinine 0.94, Estim Creat Clear Calc 92.29, Est GFR (MDRD) Af Amer 90, Est GFR (MDRD) Non-Af 74, BUN/Creatinine Ratio 19.1, Glucose 355 H, Calcium 9.5, Total Bilirubin 1.30 H, AST 15, ALT 25, Alkaline Phosphatase 87, Troponin I High Sens 4, Total Protein 7.6, Albumin 4.1, Globulin 3.5, Albumin/Globulin Ratio 1.2, Lipase 10 L 06/07/24 14:09: Urine Color Yellow, Urine Clarity Sl. Cloudy, Urine pH 8.0, Ur Specific [place] 1.010, Urine Protein 30 H, Urine Glucose (UA) 1000 H, Urine Ketones 150 A*, Urine Occult Blood Negative, Urine Nitrite Negative, Urine Bilirubin Negative, Urine Urobilinogen Normal, Ur Leukocyte Esterase Negative, Urine RBC 0 SEEN, Urine WBC 0 SEEN, Ur Squamous Epith Cells 0 SEEN, Urine Bacteria 0 SEEN, Urine Mucus 0 SEEN, Urine Test Negative 06/07/24 14:59: POC Glucose 331 H Imaging Radiology Impression Abdomen/Pelvis CT 06/07/24 14:02 IMPRESSION: Findings suggestive of inflammatory changes in the distal ileum suggestive of ileitis. This has improved as compared to prior study. Electronically Signed: Nicho Monahan MD at 15:24 EDT , Assessment & Plan Assessment/Plan (1) Intractable nausea and vomiting: PLAN: Plan # Intractable nausea vomiting -Gastroparesis versus cannabis hyperemesis syndrome -CT abdomen/pelvis shows some distal ileum inflammatory changes however that has improved compared to prior study per radiologist read and no other abnormalities appreciated -IV fluids -Antiemetics -Blood scopolamine patch -Supportive care -Clear liquid diet and advance as tolerated -Can consider adding Reglan if no improvment but given patient is on Zyprexa and getting Compazine as needed for her nausea would be hesitant to add a third antipsychotic, if this is necessary may need to monitor on telemetry and monitor magnesium -If no improvement can consider GI c/s or further inflammatory workup especially given ileal inflammation #Type 1 diabetes mellitus -Glucose checks and sliding scale insulin -Patient pump currently not attached -Will add scheduled insulin in addition sliding scale, will start low as it is unclear how sensitive patient is to insulin and can uptitrate -Patient with ketones and glucose in her urine and slightly low bicarb but gap 14 and does not seem to be in overt DKA, patient is being hydrated and to receive insulin # History of PTSD and borderline personality disorder -Continue Zyprexa #Ileitis -Improving from previous CT per report -Appears she is on Skyrizi monthly with last dose less than a month ago #Leukocytosis -Suspect reactive, patient hydrated, repeat in the a.m. #DVT ppx: Lovenox subcu Ileana Lobo MD Time spent in the patient's overall evaluation,decision-making process, review of diagnostic data, adjustment of management, discussion with other providers, nursing nursing and ancillary staff involved in patient's care documentation, 56 Minutes Charges/Coding Visit Charges Inpatient E&M: 02000 Init Hosp L2
[2024-06-07 19:29] VITALS: BP 111/45; PULSE 48; RESP 16; TEMP 36.8; O2SAT 100
[2024-06-07 19:30] VITALS: BMI 24.9
[2024-06-07 22:48] LABS: Bedside Glucose 422 mg/dL (74-106)
[2024-06-07] MEDS: Insulin Lispro 100 UNIT/ML INSULN.PEN SC (22:52)
[2024-06-07] MEDS: Scopolamine 1mg/72hr Patch 1 PATCH TD (22:52)
[2024-06-07] MEDS: Insulin Glargine-YFGN 100 UNIT/ML Pen SC (22:53)
[2024-06-07] MEDS: 0.9% Normal Saline (1000mL) 1,000 ML 75 ML IV (23:09)
[2024-06-07] MEDS: Insulin Glargine-YFGN 100 UNIT/ML Pen 10 UNIT SC (23:10)
[2024-06-07] MEDS: proCHLORPERazine 10 MG/2 ML Vial 5 MG IV (23:28)
[2024-06-08] VITALS (15 sets, daily range): BP systolic 93–132; BP diastolic 40–69; PULSE 62–91; RESP 14–28; TEMP 36.2–37.6; O2SAT 91–98
[2024-06-08 02:32] LABS: Bedside Glucose 324 mg/dL (74-106)
[2024-06-08 06:31] LABS: Absolute Lymphocyte Count 0.71 X10^3/uL (0.83-4.51); Absolute Neutrophil Count 19.8 X10^3/uL (2.0-7.7); Basophil# 0.03 X10^3/uL; Basophil% 0.1 % (0-1); Hemoglobin 13.2 g/dL (12.0-15.0); Lymphocyte # 0.71 X10^3/ul (0.83-4.51); Lymphocyte % 3.3 % (19-41); Mean Corp Hgb Conc 32.2 g/dL (32-36); Mean Corpuscular Hgb 29.7 pg (27.0-32.0); Mean Corpuscular Volume 92.1 fL (81-99); Mean Platelet Vol. 13.6 fl (6.2-12.0); Monocyte# 1.07 X10^3/uL; Monocyte% 4.9 % (0-10); NRBC Flagged by Analyzer 0 % (0-5); Neutrophil # 19.83 X10^3/uL (2.7-7.7); Neutrophil % 90.8 % (47-70); Platelet Count 171 K/mm3 (150-450); RBC Distribution Width CV 12.9 % (11.6-14.6); RBC Distribution Width SD 43.6 fl (35.1-43.9); Red Blood Count 4.45 M/mm3 (4.2-5.4); White Blood Count 21.8 K/mm3 (4.4-11.0)
[2024-06-08 06:41] LABS: Bedside Glucose 402 mg/dL (74-106)
[2024-06-08] MEDS: Insulin Glargine-YFGN 100 UNIT/ML Pen 10 UNIT SC (06:46)
[2024-06-08] MEDS: Insulin Lispro 100 UNIT/ML INSULN.PEN SC (06:47)
[2024-06-08 07:07] LABS: ALB/GLOB Ratio 1.2 RATIO (0.9-2.4); AST(SGOT) 15 U/L (15-37); Alanine Aminotransfer ALT/SGPT 21 U/L (13-56); Albumin, Serum 3.9 g/dL (3.2-5.0); Alkaline Phosphatase 90 U/L (45-117); Anion Gap 18 (5-15); BUN 22 mg/dL (7-18); Calcium,Total 8.9 mg/dL (8.5-10.1); Chloride 100 mmol/L (98-107); EST Glomerular Filtration Rate 69 mL/min (>60); Est Glom Filt Rate - Afr Amer 84 mL/min (>60); Estimated Creatinine Clearance 83.74 ml/min; Globulin 3.2 g/dL (2.2-4.2); Glucose 398 mg/dL (74-106); Magnesium 1.8 mg/dL (1.6-2.6); Potassium 4.2 mmol/L (3.5-5.1); Protein, Total 7.1 g/dL (6.4-8.2); Sodium Level 131 mmol/L (136-145)
--- NOTE | 2024-06-08 07:55 | NURSING ---
pt sleeping on right side, not disturbed, resp are even and non labored
--- NOTE | 2024-06-08 08:04 | NURSING ---
pt sleeping soundly on right side
--- NOTE | 2024-06-08 08:58 | NURSING ---
report called to Davion SALEEM in ICU
--- NOTE | 2024-06-08 09:00 | NURSING ---
ICU staff requests pt hold on this unit x 30 min
[2024-06-08] MEDS: 0.9% Normal Saline (1000mL) 1,000 ML 500 ML IV (09:46)
[2024-06-08] MEDS: 0.9% Normal Saline (1000mL) 1,000 ML 999 ML IV (09:46)
[2024-06-08] MEDS: Enoxaparin 40 MG/0.4 ML Syringe SC (09:47)
[2024-06-08 09:48] LABS: Allen Test Positive; Base Excess -14 mmol/L (-2 to +2); Bicarbonate 10.7 mmol/L (22-26); Blood Gas Specimen Type ART; Mode Not entered; O2 Delivery Device Room Air; PO2 114 mmHG (75-100); SITE L Radial; SO2 99 % (95-99); Total Carbon Dioxide 11 mmol/L; pCO2 17.9 mmHg (35-45); pH 7.39 (7.35-7.45)
[2024-06-08 09:50] LABS: Bedside Glucose 261 mg/dL (74-106)
[2024-06-08] MEDS: Insulin Lispro 100 UNIT in 0.9% Normal Saline (100mL Bag) 99 ML 7.6 UNIT CONT INF (10:00)
[2024-06-08 10:29] LABS: Bedside Glucose 251 mg/dL (74-106)
[2024-06-08 11:16] LABS: Bedside Glucose 236 mg/dL (74-106)
--- NOTE | 2024-06-08 12:04 | PN.HOSP_ITS ---
Reason for Visit Reason for Visit: Intractable nausea and vomiting Subjective Subjective Patient with ongoing abdominal pain nausea and vomiting through the night. She evidently was gulping water through the night and then threw up all over the floor and missed the bag. Labs this morning were consistent with DKA so I discussed this with the patient and the transfer to ICU for an insulin drip. 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 I did ask her for family to bring in if possible. She stated she would try. She is uncertain of her basal rate for her insulin pump and follows [facility]. Objective Data Objective Data Vital Signs: Vital Signs Temp Pulse Resp BP Pulse Ox O2 Del Method 99.1 F 88 18 106/51 L 97 Room Air 06/08/24 08:00 06/08/24 08:00 06/08/24 08:00 06/08/24 08:00 06/08/24 08:00 06/08/24 08:00 Oxygen Delivery Method Room Air Weight: 76.4 kg Body Mass Index (BMI) 24.9 Intake & Output: Intake and Output for Last 24 Hours 06/06/24 06/07/24 06/08/24 23:59 23:59 23:59 Intake Total 1000 / 1000 2897.47 / 2897.47 Balance 1000 / 1000 2897.47 / 2897.47 Lab / Micro Data 06/08/24 05:50 06/08/24 12:00 Labs: Laboratory Results - last 24 hr 06/07/24 13:25: WBC 16.0 H, RBC 4.59, Hgb 13.4, Hct 39.5, MCV 86.1, MCH 29.2, MCHC 33.9, RDW Std Deviation 38.5, RDW Coeff of Joyce 12.3, Plt Count 167, MPV 13.6 H, Immature Gran % (Auto) 0.900, Neut % (Auto) 91.4 H, Lymph % (Auto) 4.8 L , [place] % (Auto) 2.6, Eos % (Auto) 0.0, Baso % (Auto) 0.3, Absolute Neuts (auto) 14.6 H, Absolute Lymphs (auto) 0.76 L, Nucleated RBC % 0, Sodium 136, Potassium 3.4 L, Chloride 105, Carbon Dioxide 17.0 L, Anion Gap 14, BUN 18, Creatinine 0.94, Estim Creat Clear Calc 92.29, Est GFR (MDRD) Af Amer 90, Est GFR (MDRD) Non-Af 74, BUN/Creatinine Ratio 19.1, Glucose 355 H, Calcium 9.5, Total Bilirubin 1.30 H, AST 15, ALT 25, Alkaline Phosphatase 87, Troponin I High Sens 4, Total Protein 7.6, Albumin 4.1, Globulin 3.5, Albumin/Globulin Ratio 1.2, L ipase 10 L 06/07/24 14:09: Urine Color Yellow, Urine Clarity Sl. Cloudy, Urine pH 8.0, Ur Specific Mcnary 1.010, Urine Protein 30 H, Urine Glucose (UA) 1000 H, Urine Ketones 150 A*, Urine Occult Blood Negative, Urine Nitrite Negative, Urine Bilirubin Negative, Urine Urobilinogen Normal, Ur Leukocyte Esterase Negative, Urine RBC 0 SEEN, Urine WBC 0 SEEN, Ur Squamous Epith Cells 0 SEEN, Urine Bacteria 0 SEEN, Urine Mucus 0 SEEN, Urine Test Negative 06/07/24 14:59: POC Glucose 331 H 06/07/24 22:24: POC Glucose 422 H 06/08/24 02:11: POC Glucose 324 H 06/08/24 05:50: WBC 21.8 H, RBC 4.45, Hgb 13.2, Hct 41.0, MCV 92.1 D, MCH 29.7, MCHC 32.2 D, RDW Std Deviation 43.6, RDW Coeff of Joyce 12.9, Plt Count 171, MPV 13.6 H, Immature Gran % (Auto) 0.900, Neut % (Auto) 90.8 H, Lymph % (Auto) 3.3 L , [place] % (Auto) 4.9, Eos % (Auto) 0.0, Baso % (Auto) 0.1, Absolute Neuts (auto) 19.8 H, Absolute Lymphs (auto) 0.71 L, Nucleated RBC % 0, Sodium 131 L, Potassium 4.2, Chloride 100, Carbon Dioxide 12.0 L, Anion Gap 18 H, BUN 22 H, Creatinine 1.00, Estim Creat Clear Calc 83.74, Est GFR (MDRD) Af Amer 84, Est GFR (MDRD) Non-Af 69, BUN/Creatinine Ratio 22.0 H, Glucose 398 H, Calcium 8.9, Magnesium 1.8, Total Bilirubin 1.30 H, AST 15, ALT 21, Alkaline Phosphatase 90, Total Protein 7.1, Albumin 3.9, Globulin 3.2, Albumin/Globulin Ratio 1.2 06/08/24 06:20: POC Glucose 402 H 06/08/24 09:33: POC Glucose 261 H 06/08/24 10:01: POC Glucose 251 H 06/08/24 10:58: POC Glucose 236 H ABG Data ABG results: ABG 06/08/24 09:43 Specimen Type ART Sample Site L Radial pH 7.39 Bicarbonate Actual 10.7 L Total CO2 11 Base Excess -14 L O2 Saturation 99 O2 % 21.0 ABG pCO2 17.9 L* ABG pO2 114 H Iban Test Positive O2 Delivery Device Room Air Vent Mode Not entered Crit Call To/Read Back Yes Blood Gas Notified Whom denia Blood Gas Notified Time 09:45:00 Radiography Diagnostic Testing: Radiology Impression Abdomen/Pelvis CT 06/07/24 14:02 IMPRESSION: Findings suggestive of inflammatory changes in the distal ileum suggestive of ileitis. This has improved as compared to prior study. Electronically Signed: Nicho Monahan MD at 15:24 EDT , Physical Exam Const alert, no apparent distress and average body habitus; Negative for healthy appearing or well nourished Constitutional Narrative: Ill-appearing, middle-aged, white female, lying in bed, falling asleep intermittently throughout our conversation, appears ill but not toxic HEENT head/scalp atraumatic HEENT Narrative: Mucous membranes are slightly dry, no thrush Head and Scalp: normocephalic Eyes PERRL, EOMs intact bilaterally and conjunctivae normal Eyes Narrative: No scleral icterus Neck no lymphadenopathy and supple Neck Narrative: Trachea midline Resp no retractions, no use of accessory muscles and clear to auscultation bilaterally Resp Narrative: Tachypnea noted Auscultation: Negative for rales, rhonchi or wheezes Cardio regular rate, regular rhythm, S1 normal heart sound, S2 normal heart sound, no murmurs, no rub, no gallops and no clicks GI normal to inspection, nondistended, normoactive bowel sounds and soft to palpation GI Narrative: Diffuse tenderness Extremity no clubbing, cyanosis or edema Extremity Narrative: Pedal pulses are 2+ Neuro oriented x3, moves all extremities and no focal motor deficits Speech: speech normal Psych Psych Narrative: Affect is extremely flattened patient seems depressed Assessment & Plan Assessment/Plan (1) DKA, type 1: (2) Leukocytosis: (3) Metabolic acidosis: PLAN: Plan DKA -Patient with small acetone, compensated metabolic acidosis, anion gap elevation -Transferred to the ICU -Start insulin drip per protocol -IV fluids per protocol -N.p.o. except for meds and ice chips -Appears to be mild and should correct quickly -Patient has insulin pump and may need to leave on drip until p.o. intake is adequate as she is unclear what her basal rate is on her pump and developed DKA despite aggressive hydration and subcu insulin 5 units twice daily with 2 doses of subcu insulin given last night for hyperglycemia Leukocytosis -Trended up -Suspect reactive -If continues to trend up will obtain cultures and start antibiotics with Zosyn tomorrow as there is ileitis noted on her CAT scan however it was ported to be improved Anion gap metabolic acidosis -Secondary to the above -Should resolve with treatment of DKA -Patient is extremely well compensated with a ABG showing pCO2 of 17 Intractable nausea and vomiting -Likely multifactorial with history of gastroparesis as well as DKA and also cannabis hyperemesis syndrome and currently using cannabis -IV fluids as noted above -As needed antiemetics will transition from Zofran to Haldol -Treat DKA -Continue antiemetics -Continue scopolamine patch -Once out of DKA will start clear liquids to assess for tolerance -Once eating and drinking well should be able to discharge home Ileitis -Improved from previous CT -Takes Skyrizi monthly with her last dose less than 1 month ago -If white count remains elevated may need to consider starting antibiotics with Zosyn History of PTSD/borderline personality disorder -Continue Zyprexa DVT prophylaxis -Continue subcu enoxaparin CODE STATUS -Full code Charges/Coding Visit Charges Inpatient E&M: 81195 Subs Hosp L3
[2024-06-08 12:43] LABS: Hemoglobin A1c 8.6 % (3.8-5.6)
[2024-06-08] MEDS: proCHLORPERazine 10 MG/2 ML Vial 5 MG IV (12:49)
[2024-06-08 13:01] LABS: Anion Gap 10 (5-15); BUN 20 mg/dL (7-18); BUN/Creat Ratio 19.6 RATIO (10-20); Calcium,Total 7.9 mg/dL (8.5-10.1); Chloride 112 mmol/L (98-107); Creatinine, Serum 1.02 mg/dL (0.55-1.02); EST Glomerular Filtration Rate 68 mL/min (>60); Est Glom Filt Rate - Afr Amer 82 mL/min (>60); Estimated Creatinine Clearance 82.09 ml/min; Glucose 168 mg/dL (74-106); Potassium 3.7 mmol/L (3.5-5.1); Sodium Level 139 mmol/L (136-145)
[2024-06-08 13:30] LABS: Bedside Glucose 114 mg/dL (74-106)
[2024-06-08] MEDS: Dext 5%-0.45% NS 1,000 ML 150 ML IV ×2 (13:30→21:15)
[2024-06-08] MEDS: Haloperidol Lactate 5 MG/ML Vial 2 MG IV ×2 (13:43→20:57)
[2024-06-08 14:40] LABS: Bedside Glucose 108 mg/dL (74-106)
--- NOTE | 2024-06-08 14:43 | CASEMGMT ---
SW met with patient. Patient was sleeping. SW said patient's name and she briefly woke up. SW was able to get patient to state they are having issues with paying for food and utilities. Patient went back to sleep. SW said patient's name again and she briefly woke up. Patient fell asleep several times while SW in the room. SW told patient SW will leave the resources for her. Patient did say, I am sorry and went back to sleep. SW may try and talk with patient again Monday if she is still in hospital. Dori Lacey CUTTING AND SPLICING SUPERVISOR CLYDE
--- NOTE | 2024-06-08 15:07 | CASEMGMT ---
RN CM Face to Face with patient for initial transition planning/care coordination assessment. RN CM introduced self and role at [facility]. Patient lying in bed, alert and oriented. Patient willing to participate in assessment and is able to answer all questions appropriately. Care providers, pharmacy, and demographics verified. Strata: 3 PCP: None, PCP list provided Specialists: CRUZ Barcenas [facility]; DEA Hylton [facility]; Kevin genetic engineer [facility] Preferred Pharmacy: [facility] Insurance: [employer] Prescription Benefit: yes Living Will/HPOA: none LNOK: significant other Living Arrangements: Patient lives with significant other in a 2nd floor apartment. Patient is independent and able to ambulate stairs. Transportation: insurance, public DME/HHC: [employer] had glucometer with supplies and insulin pump with supplies. No previous HHC or SNF Patient wishes to discharge home, denies need for home health at this time. Patient states he has no further needs or concerns at this time. CM to follow for discharge planning needs that may arise. Disposition Plan: Patient to discharge home with family support and follow-up plans in place. Radha RTAMMELL, RN, CM
[2024-06-08 15:21] LABS: Bedside Glucose 121 mg/dL (74-106)
[2024-06-08 17:30] LABS: Bedside Glucose 176 mg/dL (74-106)
[2024-06-08 17:32] LABS: Anion Gap 10 (5-15); BUN 17 mg/dL (7-18); BUN/Creat Ratio 19.6 RATIO (10-20); Chloride 112 mmol/L (98-107); Creatinine, Serum 0.87 mg/dL (0.55-1.02); EST Glomerular Filtration Rate 82 mL/min (>60); Est Glom Filt Rate - Afr Amer 99 mL/min (>60); Estimated Creatinine Clearance 99.71 ml/min; Glucose 189 mg/dL (74-106); Potassium 3.8 mmol/L (3.5-5.1); Sodium Level 140 mmol/L (136-145)
[2024-06-08 18:26] LABS: Bedside Glucose 151 mg/dL (74-106)
[2024-06-08 19:51] LABS: Bedside Glucose 205 mg/dL (74-106)
[2024-06-08 20:47] LABS: Bedside Glucose 252 mg/dL (74-106)
[2024-06-08 21:42] LABS: Bedside Glucose 247 mg/dL (74-106)
[2024-06-08 22:51] LABS: Bedside Glucose 198 mg/dL (74-106)
[2024-06-08 23:32] LABS: Bedside Glucose 191 mg/dL (74-106)
[2024-06-09] VITALS (24 sets, daily range): BP systolic 103–152; BP diastolic 54–72; PULSE 48–72; RESP 16–28; TEMP 36.2–37.2; O2SAT 93–99
[2024-06-09 00:36] LABS: Bedside Glucose 206 mg/dL (74-106)
[2024-06-09] MEDS: Insulin Lispro 100 UNIT in 0.9% Normal Saline (100mL Bag) 99 ML 6 UNIT CONT INF (01:12)
[2024-06-09 01:30] LABS: Bedside Glucose 170 mg/dL (74-106)
[2024-06-09 02:51] LABS: Bedside Glucose 136 mg/dL (74-106)
[2024-06-09] MEDS: Dext 5%-0.45% NS 1,000 ML 150 ML IV (04:00)
[2024-06-09 04:32] LABS: Bedside Glucose 131 mg/dL (74-106)
[2024-06-09 05:27] LABS: Bedside Glucose 127 mg/dL (74-106)
[2024-06-09 06:22] LABS: Absolute Lymphocyte Count 1.62 X10^3/uL (0.83-4.51); Absolute Neutrophil Count 14.1 X10^3/uL (2.0-7.7); Basophil# 0.03 X10^3/uL; Basophil% 0.2 % (0-1); Eosinophil# 0.01 X10^3/uL; Eosinophils% 0.1 % (0-5); Hemoglobin 11.1 g/dL (12.0-15.0); Lymphocyte # 1.62 X10^3/ul (0.83-4.51); Lymphocyte % 9.7 % (19-41); Mean Corp Hgb Conc 32.6 g/dL (32-36); Mean Corpuscular Hgb 29.1 pg (27.0-32.0); Mean Corpuscular Volume 89.2 fL (81-99); Monocyte# 0.86 X10^3/uL; Monocyte% 5.1 % (0-10); NRBC Flagged by Analyzer 0 % (0-5); Neutrophil # 14.06 X10^3/uL (2.7-7.7); Neutrophil % 84.1 % (47-70); Platelet Count 147 K/mm3 (150-450); RBC Distribution Width CV 12.9 % (11.6-14.6); RBC Distribution Width SD 42.1 fl (35.1-43.9); Red Blood Count 3.81 M/mm3 (4.2-5.4); White Blood Count 16.7 K/mm3 (4.4-11.0)
[2024-06-09 06:28] LABS: Bedside Glucose 135 mg/dL (74-106)
[2024-06-09 06:42] LABS: ALB/GLOB Ratio 1.1 RATIO (0.9-2.4); AST(SGOT) 12 U/L (15-37); Alanine Aminotransfer ALT/SGPT 22 U/L (13-56); Alkaline Phosphatase 68 U/L (45-117); Anion Gap 6 (5-15); BUN 10 mg/dL (7-18); BUN/Creat Ratio 16.7 RATIO (10-20); Calcium,Total 7.7 mg/dL (8.5-10.1); Chloride 111 mmol/L (98-107); EST Glomerular Filtration Rate 125 mL/min (>60); Est Glom Filt Rate - Afr Amer 151 mL/min (>60); Estimated Creatinine Clearance 144.58 ml/min; Globulin 2.7 g/dL (2.2-4.2); Glucose 142 mg/dL (74-106); Protein, Total 5.7 g/dL (6.4-8.2); Sodium Level 139 mmol/L (136-145)
[2024-06-09 06:49] LABS: Phosphorus 1.2 mg/dL (2.5-4.9)
[2024-06-09] MEDS: Acetaminophen 325 MG Tablet 650 MG PO (08:00)
[2024-06-09] MEDS: Enoxaparin 40 MG/0.4 ML Syringe SC (08:01)
[2024-06-09 08:06] LABS: Bedside Glucose 128 mg/dL (74-106)
[2024-06-09 09:25] LABS: Bedside Glucose 127 mg/dL (74-106)
[2024-06-09] MEDS: Piperacil/Tazobactam 3.375 GM in 0.9% Normal Saline (50mL MB+) 50 ML IV ×3 (09:44→20:51)
[2024-06-09] MEDS: Potassium Phosphate 40 MM in 0.9% Normal Saline (500mL Bag) 500 ML 62.5 MM IV (09:45)
[2024-06-09 12:33] LABS: Bedside Glucose 72 mg/dL (74-106)
--- NOTE | 2024-06-09 12:41 | PN.HOSP_ITS ---
Reason for Visit Reason for Visit: Nausea and vomiting Subjective Subjective Patient states her nausea and vomiting is a little bit better but still having dry heaves intermittently. Blood sugar is stable on the insulin drip with dextrose infusing. She states her significant other is to bring her supplies for her insulin pump later today so we should at least be able to hook her up to her basal rate. Will try full liquid diet to see if she tolerates. We discussed that when she is able to eat and drink she should be able to discharge home. Objective Data Objective Data Vital Signs: Vital Signs Temp Pulse Resp BP Pulse Ox O2 Del Method FiO2 98.8 F 50 L 18 123/67 H 98 Room Air 96 06/09/24 10:00 06/09/24 11:00 06/09/24 11:00 06/09/24 11:00 06/09/24 11:00 06/09/24 11:00 06/08/24 15:00 Oxygen Delivery Method Room Air Weight: 76.4 kg Body Mass Index (BMI) 24.9 Intake & Output: Intake and Output for Last 24 Hours 06/07/24 06/08/24 06/09/24 23:59 23:59 23:59 Intake Total 1000 / 1000 3955.73 / 4321.73 2394.0 / 2394.0 Output Total 100 / 100 Balance 1000 / 1000 3955.73 / 4221.73 2294.0 / 2294.0 Lab / Micro Data 06/09/24 06:10 06/09/24 06:10 Labs: Laboratory Results - last 24 hr 06/08/24 12:00: Sodium 139, Potassium 3.7, Chloride 112 H, Carbon Dioxide 17.0 L , Anion Gap 10, BUN 20 H, Creatinine 1.02, Estim Creat Clear Calc 82.09, Est GFR (MDRD) Af Amer 82, Est GFR (MDRD) Non-Af 68, BUN/Creatinine Ratio 19.6, Glucose 168 H, Hemoglobin A1c 8.6 H, Calcium 7.9 L, Acetone Level SMALL H 06/08/24 13:10: POC Glucose 114 H 06/08/24 14:21: POC Glucose 108 H 06/08/24 15:02: POC Glucose 121 H 06/08/24 17:05: Sodium 140, Potassium 3.8, Chloride 112 H, Carbon Dioxide 18.0 L , Anion Gap 10, BUN 17, Creatinine 0.87, Estim Creat Clear Calc 99.71, Est GFR (MDRD) Af Amer 99, Est GFR (MDRD) Non-Af 82, BUN/Creatinine Ratio 19.6, Glucose 189 H, Calcium 8.0 L 06/08/24 17:12: POC Glucose 176 H 06/08/24 18:08: POC Glucose 151 H 06/08/24 19:21: POC Glucose 205 H 06/08/24 20:25: POC Glucose 252 H 06/08/24 21:17: POC Glucose 247 H 06/08/24 22:32: POC Glucose 198 H 06/08/24 23:13: POC Glucose 191 H 06/09/24 00:17: POC Glucose 206 H 06/09/24 01:08: POC Glucose 170 H 06/09/24 02:32: POC Glucose 136 H 06/09/24 04:11: POC Glucose 131 H 06/09/24 05:09: POC Glucose 127 H 06/09/24 06:10: WBC 16.7 H, RBC 3.81 L, Hgb 11.1 L, Hct 34.0 L, MCV 89.2, MCH 29.1, MCHC 32.6, RDW Std Deviation 42.1, RDW Coeff of Joyce 12.9, Plt Count 147 L, MPV 12.0, Immature Gran % (Auto) 0.800, Neut % (Auto) 84.1 H, Lymph % (Auto) 9.7 L, [place] % (Auto) 5.1, Eos % (Auto) 0.1, Baso % (Auto) 0.2, Absolute Neuts (auto) 14.1 H, Absolute Lymphs (auto) 1.62, Nucleated RBC % 0, Sodium 139, Potassium 3.0 L, Chloride 111 H, Carbon Dioxide 23.0, Anion Gap 6, BUN 10, Creatinine 0.60, Estim Creat Clear Calc 144.58, Est GFR (MDRD) Af Amer 151, Est GFR (MDRD) Non-Af 125, BUN/Creatinine Ratio 16.7, Glucose 142 H, Calcium 7.7 L, Phosphorus 1.2 L, Magnesium 2.0, Total Bilirubin 0.80, AST 12 L, ALT 22, Alkaline Phosphatase 68, Total Protein 5.7 L, Albumin 3.0 L, Globulin 2.7, Albumin/Globulin Ratio 1.1, POC Glucose 135 H 06/09/24 07:47: POC Glucose 128 H 06/09/24 09:05: POC Glucose 127 H 06/09/24 12:14: POC Glucose 72 L Physical Exam Const alert, oriented x3, no apparent distress and average body habitus; Negative for healthy appearing or well nourished Constitutional Narrative: Ill-appearing, middle-aged, white female, lying in bed, awake, appears improved since yesterday but not baseline, does not appear toxic and currently appears comfortable HEENT head/scalp atraumatic and moist oral mucous membranes Head and Scalp: normocephalic Resp normal respiratory effort, no retractions, no use of accessory muscles and clear to auscultation bilaterally Auscultation: Negative for rales, rhonchi or wheezes Cardio regular rate, regular rhythm, S1 normal heart sound, S2 normal heart sound, no murmurs, no rub, no gallops and no clicks GI normal to inspection, nondistended, normoactive bowel sounds and soft to palpation GI Narrative: Diffuse tenderness with no point tenderness Extremity no clubbing, cyanosis or edema Extremity Narrative: Pedal pulses are 2+ Neuro oriented x3, moves all extremities and no focal motor deficits Speech: speech normal Psych Psych Narrative: Affect is extremely flattened patient seems depressed Assessment & Plan Assessment/Plan (1) DKA, type 1: (2) Leukocytosis: (3) Metabolic acidosis: PLAN: Plan DKA -Resolved -Need to maintain drip with IV dextrose until supplies for pump have arrived -Will plan to hook her up to pump for basal rate and let her bolus for meals with every 4 hours BMPs to ensure she does not end up back in DKA -Basal rate is unclear so I am unable to transition her to subcu insulin at this time Leukocytosis -Trended up -UA was not consistent with infection -Check blood cultures -Will start IV Zosyn to cover for her ileitis as no other source has been identified -Does not appear to be hemoconcentrated at this time Hypokalemia/hypophosphatemia -K-Phos bolus -Recheck in a.m. Anion gap metabolic acidosis -Resolved -Anion gap is normalized and bicarb is 23 Intractable nausea and vomiting -Likely multifactorial with history of gastroparesis as well as DKA and also cannabis hyperemesis syndrome and currently using cannabis/supratentorial -IV fluids as noted above -Continue as needed Haldol -DKA has resolved -Continue antiemetics -Continue scopolamine patch -Once eating and drinking well should be able to discharge home -Start full liquid diet Ileitis -Improved from previous CT -With remaining elevated white count we will however start Zosyn -Takes Skyrizi monthly with her last dose less than 1 month ago History of PTSD/borderline personality disorder -Continue Zyprexa -Suspect may be contributing to nausea and vomiting DVT prophylaxis -Continue subcu enoxaparin CODE STATUS -Full code Charges/Coding Visit Charges Inpatient E&M: 78553 Subs Hosp L2
[2024-06-09 14:23] LABS: Bedside Glucose 51 mg/dL (74-106)
--- NOTE | 2024-06-09 15:22 | NURSING ---
Patients family member arrived and brought in her supplies to get patient's insulin pump running appropriately and connected to patient. Patient prepared pump and placed herself without complication. Insulin gtt discontinued per orders from Dr Suarez.
[2024-06-09 16:48] LABS: Bedside Glucose 146 mg/dL (74-106)
[2024-06-09 19:15] LABS: Anion Gap 12 (5-15); BUN 9 mg/dL (7-18); BUN/Creat Ratio 12.1 RATIO (10-20); Chloride 103 mmol/L (98-107); Creatinine, Serum 0.74 mg/dL (0.55-1.02); EST Glomerular Filtration Rate 98 mL/min (>60); Est Glom Filt Rate - Afr Amer 118 mL/min (>60); Estimated Creatinine Clearance 117.23 ml/min; Glucose 351 mg/dL (74-106); Potassium 3.4 mmol/L (3.5-5.1); Sodium Level 136 mmol/L (136-145)
[2024-06-09 20:03] LABS: Bedside Glucose 354 mg/dL (74-106)
--- NOTE | 2024-06-09 20:27 | NURSING ---
Addendum entered by Wendy Alvarez 06/09/24 20:38: Dr. Desir instructed this RN to have pt disconnect herself from personal insulin pump at this time. Pt removed pump, RN placed in biohazard bag then placed w/ pt belongings Original Note: Asked pt about insulin pump/ basal rate as no pump had been added to the MAR/ ordered. Pt looked at her insulin pump to discover she didn't start the boluses when she put it on earlier in the day. This RN checked sugar, BGT 354. Last BMP drawn at 1800, GAP 12. Dr. Suarez had previously put in her note that pt would be started on her personal insulin pump but she was unsure of the basal rate, no additional insulin/ sliding scale ordered. Pt able to tell this RN pump settings at this time. Basal rate 1.8u/hr, 1u per 10g carbs and BGT goal 100-125. Dr. Desir contacted at this time and informed of situation. Dr. Desir ordered serum acetone to be checked along w/ 15U lantus to be given stat and low dose sliding scale Humalog. Orders placed.
[2024-06-09] MEDS: Insulin Lispro 100 UNIT/ML INSULN.PEN SC (20:50)
[2024-06-09] MEDS: Insulin Glargine-YFGN 100 UNIT/ML Pen 15 UNIT SC (20:51)
[2024-06-09] MEDS: 0.9% Saline Lock 10 ML Syringe IV (20:52)
[2024-06-09] MEDS: OLANZapine 2.5 MG Tablet PO (20:52)
[2024-06-09 21:17] LABS: Bedside Glucose 322 mg/dL (74-106)
[2024-06-09] MEDS: Insulin Lispro 100 UNIT in 0.9% Normal Saline (100mL Bag) 99 ML 7.6 UNIT CONT INF (22:00)
[2024-06-09] MEDS: Dext 5%-0.45% NS 1,000 ML 100 ML IV (22:39)
[2024-06-09] MEDS: Insulin Lispro 100 UNIT in 0.9% Normal Saline (100mL Bag) 99 ML 5.6 UNIT CONT INF (23:00)
[2024-06-10] VITALS (17 sets, daily range): BP systolic 96–148; BP diastolic 56–78; PULSE 42–72; RESP 13–25; TEMP 36.1–37.1; O2SAT 94–98
[2024-06-10] MEDS: 0.9% Saline Lock 10 ML Syringe IV ×12 (00:15→20:32)
[2024-06-10] MEDS: proCHLORPERazine 10 MG/2 ML Vial 5 MG IV ×3 (00:15→17:01)
[2024-06-10 00:24] LABS: Bedside Glucose 195 mg/dL (74-106)
[2024-06-10 00:24] LABS: Bedside Glucose 233 mg/dL (74-106)
[2024-06-10 00:24] LABS: Bedside Glucose 286 mg/dL (74-106)
[2024-06-10 00:24] LABS: Bedside Glucose 194 mg/dL (74-106)
[2024-06-10 00:29] LABS: Anion Gap 7 (5-15); BUN 9 mg/dL (7-18); BUN/Creat Ratio 11.2 RATIO (10-20); Calcium,Total 7.9 mg/dL (8.5-10.1); Chloride 107 mmol/L (98-107); Creatinine, Serum 0.81 mg/dL (0.55-1.02); EST Glomerular Filtration Rate 89 mL/min (>60); Est Glom Filt Rate - Afr Amer 108 mL/min (>60); Glucose 185 mg/dL (74-106); Potassium 2.9 mmol/L (3.5-5.1); Sodium Level 140 mmol/L (136-145)
[2024-06-10] MEDS: Potassium Chloride 20mEq/100mL 20 MEQ/100 ML IV.SOLN. 100 MEQ IV BOLUS ×2 (01:39→02:45)
[2024-06-10] MEDS: Haloperidol Lactate 5 MG/ML Vial 2 MG IV (02:18)
[2024-06-10 03:51] LABS: Bedside Glucose 122 mg/dL (74-106)
[2024-06-10 03:51] LABS: Bedside Glucose 146 mg/dL (74-106)
[2024-06-10 04:09] LABS: Absolute Lymphocyte Count 2.08 X10^3/uL (0.83-4.51); Absolute Neutrophil Count 11.6 X10^3/uL (2.0-7.7); Basophil# 0.05 X10^3/uL; Basophil% 0.3 % (0-1); Eosinophil# 0.01 X10^3/uL; Eosinophils% 0.1 % (0-5); Hematocrit 36.7 % (37-47); Hemoglobin 12.2 g/dL (12.0-15.0); Lymphocyte # 2.08 X10^3/ul (0.83-4.51); Lymphocyte % 14.1 % (19-41); Mean Corp Hgb Conc 33.2 g/dL (32-36); Mean Corpuscular Hgb 29.5 pg (27.0-32.0); Mean Corpuscular Volume 88.9 fL (81-99); Mean Platelet Vol. 11.8 fl (6.2-12.0); Monocyte# 0.87 X10^3/uL; Monocyte% 5.9 % (0-10); NRBC Flagged by Analyzer 0 % (0-5); Neutrophil # 11.62 X10^3/uL (2.7-7.7); Neutrophil % 78.5 % (47-70); Platelet Count 187 K/mm3 (150-450); RBC Distribution Width CV 12.6 % (11.6-14.6); RBC Distribution Width SD 41.1 fl (35.1-43.9); Red Blood Count 4.13 M/mm3 (4.2-5.4); White Blood Count 14.8 K/mm3 (4.4-11.0)
[2024-06-10 04:21] LABS: Bedside Glucose 124 mg/dL (74-106)
[2024-06-10 04:22] LABS: Anion Gap 7 (5-15); BUN 7 mg/dL (7-18); BUN/Creat Ratio 11.2 RATIO (10-20); Chloride 107 mmol/L (98-107); Creatinine, Serum 0.63 mg/dL (0.55-1.02); EST Glomerular Filtration Rate 119 mL/min (>60); Est Glom Filt Rate - Afr Amer 144 mL/min (>60); Glucose 127 mg/dL (74-106); Magnesium 2.2 mg/dL (1.6-2.6); Phosphorus 1.8 mg/dL (2.5-4.9); Potassium 3.7 mmol/L (3.5-5.1); Sodium Level 138 mmol/L (136-145)
[2024-06-10] MEDS: Piperacil/Tazobactam 3.375 GM in 0.9% Normal Saline (50mL MB+) 50 ML IV ×3 (05:17→20:37)
[2024-06-10] MEDS: Sodium Phosphate/Na Biphos 15 MMOL in 0.9% Normal Saline (250mL Bag) 250 ML 125 MMOL IV (05:20)
--- NOTE | 2024-06-10 08:20 | NURSING ---
0719 Pt point of care 67. Apple juice given 0735 Glucose 64. Apple juice given . 0800 Labs drawn. Glucose 74. encouraged patient to eat breakfast. Pt states she has some nausea
[2024-06-10 08:24] LABS: Bedside Glucose 74 mg/dL (74-106)
[2024-06-10 08:34] LABS: Anion Gap 10 (5-15); BUN 6 mg/dL (7-18); BUN/Creat Ratio 9.8 RATIO (10-20); Calcium,Total 7.9 mg/dL (8.5-10.1); Chloride 107 mmol/L (98-107); Creatinine, Serum 0.61 mg/dL (0.55-1.02); EST Glomerular Filtration Rate 123 mL/min (>60); Est Glom Filt Rate - Afr Amer 148 mL/min (>60); Estimated Creatinine Clearance 142.21 ml/min; Glucose 89 mg/dL (74-106); Sodium Level 141 mmol/L (136-145)
[2024-06-10 08:45] LABS: Bedside Glucose 67 mg/dL (74-106)
[2024-06-10 08:45] LABS: Bedside Glucose 64 mg/dL (74-106)
[2024-06-10 09:28] LABS: Bedside Glucose 85 mg/dL (74-106)
[2024-06-10] MEDS: Enoxaparin 40 MG/0.4 ML Syringe SC (09:54)
[2024-06-10] MEDS: Potassium Chloride 10mEq/100mL 10 MEQ/100 ML IV.SOLN. 100 MEQ IV BOLUS ×2 (09:59→11:31)
[2024-06-10] MEDS: Glucerna Shake 120 ML LIQUID PO ×3 (10:19→18:00)
[2024-06-10 10:27] LABS: Phosphorus 2.3 mg/dL (2.5-4.9)
[2024-06-10 11:26] LABS: Bedside Glucose 93 mg/dL (74-106)
[2024-06-10] MEDS: Azithromycin 250 MG Tablet 500 MG PO (11:59)
[2024-06-10] MEDS: Metoclopramide 10 MG/2 ML Vial 5 MG IV ×3 (12:00→23:32)
[2024-06-10] MEDS: Potassium Phosphate 15 MM in 0.9% Normal Saline (250mL Bag) 250 ML 125 MM IV (12:22)
[2024-06-10 14:49] LABS: Bedside Glucose 158 mg/dL (74-106)
[2024-06-10 16:35] LABS: Bedside Glucose 120 mg/dL (74-106)
--- NOTE | 2024-06-10 17:21 | PCM.PN.HOSP ---
Reason for Visit Reason for Visit: Diagnoses Elevated white blood cell count, unspecified (06/07/24) Type 1 diabetes mellitus with ketoacidosis without coma (06/07/24) Acidosis, unspecified (06/07/24) Nausea with vomiting, unspecified (06/07/24) Subjective Subjective Patient was seen and examined today, she remains off an insulin drip at this time, patient has not been eating well due to persistent nausea, I elected to place her on Zithromax and Reglan to see if this would help her gastroparesis. Objective Data Objective Data Vital Signs: Vital Signs Temp Pulse Resp BP Pulse Ox O2 Del Method FiO2 97.7 F L 49 L 19 H 128/70 H 95 Room Air 96 06/10/24 15:00 06/10/24 15:00 06/10/24 15:00 06/10/24 15:00 06/10/24 15:00 06/10/24 15:00 06/08/24 15:00 Oxygen Delivery Method Room Air Weight: 76.4 kg Body Mass Index (BMI) 24.9 Intake & Output: Intake and Output for Last 24 Hours 06/08/24 06/09/24 06/10/24 23:59 23:59 23:59 Intake Total 3955.73 / 4321.73 3045.1333 / 3050.7333 1428.25 / 1428.25 Output Total 100 / 100 Balance 3955.73 / 4221.73 2945.1333 / 2950.7333 1428.25 / 1428.25 Lab / Micro Data 06/10/24 04:02 06/10/24 08:03 Labs: Laboratory Results - last 24 hr 06/09/24 18:25: Sodium 136, Potassium 3.4 L, Chloride 103, Carbon Dioxide 21.0, Anion Gap 12, BUN 9, Creatinine 0.74, Estim Creat Clear Calc 117.23, Est GFR (MDRD) Af Amer 118, Est GFR (MDRD) Non-Af 98, BUN/Creatinine Ratio 12.1, Glucose 351 H, Calcium 8.0 L 06/09/24 19:42: POC Glucose 354 H 06/09/24 20:18: Acetone Level LARGE H 06/09/24 20:50: POC Glucose 322 H 06/09/24 21:59: POC Glucose 286 H 06/09/24 23:03: POC Glucose 233 H 06/09/24 23:31: POC Glucose 195 H 06/09/24 23:58: POC Glucose 194 H 06/10/24 00:05: Sodium 140, Potassium 2.9 L, Chloride 107, Carbon Dioxide 25.0, Anion Gap 7, BUN 9, Creatinine 0.81, Estim Creat Clear Calc 107.10, Est GFR (MDRD) Af Amer 108, Est GFR (MDRD) Non-Af 89, BUN/Creatinine Ratio 11.2, Glucose 185 H, Calcium 7.9 L 06/10/24 01:03: POC Glucose 146 H 06/10/24 01:29: Acetone Level NEGATIVE 06/10/24 02:10: POC Glucose 122 H 06/10/24 04:02: WBC 14.8 H, RBC 4.13 L, Hgb 12.2, Hct 36.7 L, MCV 88.9, MCH 29.5, MCHC 33.2, RDW Std Deviation 41.1, RDW Coeff of Joyce 12.6, Plt Count 187, MPV 11.8, Immature Gran % (Auto) 1.100 H, Neut % (Auto) 78.5 H, Lymph % (Auto) 14.1 L, [place] % (Auto) 5.9, Eos % (Auto) 0.1, Baso % (Auto) 0.3, Absolute Neuts (auto) 11.6 H, Absolute Lymphs (auto) 2.08, Nucleated RBC % 0, Sodium 138, Potassium 3.7, Chloride 107, Carbon Dioxide 24.0, Anion Gap 7, BUN 7, Creatinine 0.63, Estim Creat Clear Calc 137.70, Est GFR (MDRD) Af Amer 144, Est GFR (MDRD) Non-Af 119, BUN/Creatinine Ratio 11.2, Glucose 127 H, Calcium 8.0 L, Phosphorus 1.8 L, Magnesium 2.2, POC Glucose 124 H 06/10/24 07:19: POC Glucose 67 L 06/10/24 07:34: POC Glucose 64 L 06/10/24 08:03: Sodium 141, Potassium 3.0 L, Chloride 107, Carbon Dioxide 25.0, Anion Gap 10, BUN 6 L, Creatinine 0.61, Estim Creat Clear Calc 142.21, Est GFR (MDRD) Af Amer 148, Est GFR (MDRD) Non-Af 123, BUN/Creatinine Ratio 9.8 L, Glucose 89, Calcium 7.9 L 06/10/24 08:05: POC Glucose 74 06/10/24 09:09: POC Glucose 85 06/10/24 09:57: Phosphorus 2.3 L 06/10/24 11:02: POC Glucose 93 06/10/24 14:28: POC Glucose 158 H 06/10/24 16:17: POC Glucose 120 H Physical Exam Const alert, oriented x3, no apparent distress, average body habitus and healthy appearing General Appearance: cooperative, well kempt and well developed Orientation / Consciousness: awake, oriented to person, oriented to place and oriented to time HEENT normocephalic, head/scalp atraumatic and moist oral mucous membranes Eyes PERRL, EOMs intact bilaterally and conjunctivae normal Neck supple, no JVD, thyroid normal and no carotid bruits General: trachea midline Resp normal respiratory effort, no retractions, no use of accessory muscles and clear to auscultation bilaterally Auscultation: Negative for rales, rhonchi or wheezes Cardio regular rate, regular rhythm, S1 normal heart sound, S2 normal heart sound, no murmurs, no rub and no gallops GI normal to inspection, nondistended, normoactive bowel sounds, soft to palpation, non-tender and non-distended Extremity no clubbing, cyanosis or edema Skin no rashes or lesions noted General Skin Exam: no breakdown Neuro oriented x3, CN's II-XII intact bilaterally, moves all extremities, no focal motor deficits and no sensory deficits noted Sensorium / Orientation: awake, alert, oriented to person, oriented to place and oriented to time Speech: speech normal Psych affect normal Assessment & Plan Assessment/Plan (1) DKA, type 1: PLAN: Plan 1. DKA-resolved at this time, blood sugars will be monitored, patient is stable for transfer to [facility] 3 at this time #2 poorly controlled type 1 diabetes-complicates care, management, recovery, and prognosis #3 diabetic gastroparesis-patient will be placed on Reglan and Zithromax #4 chronic nausea and vomiting-probably secondary to diabetic gastroparesis-continue antiemetics at this time Total clinical time spent by myself addressing patient's medical issues, reviewing all of her data, and collaborating with patient's care team: 35 minutes Charges/Coding Visit Charges Inpatient E&M: 31192 Subs Hosp L2
[2024-06-10] MEDS: Acetaminophen 325 MG Tablet 650 MG PO (17:56)
[2024-06-10] MEDS: Scopolamine 1mg/72hr Patch 1 PATCH TD (20:30)
[2024-06-10] MEDS: OLANZapine 2.5 MG Tablet PO (20:31)
[2024-06-10 20:54] LABS: Bedside Glucose 122 mg/dL (74-106)
[2024-06-11 00:15] VITALS: BP 113/66; PULSE 51; RESP 16; TEMP 36.4; O2SAT 96
[2024-06-11] MEDS: MELATONIN 3 MG TABLET PO (00:20)
[2024-06-11 04:00] VITALS: BP 118/80; PULSE 57; RESP 16; TEMP 36.2; O2SAT 98
[2024-06-11 04:31] LABS: Bedside Glucose 180 mg/dL (74-106)
[2024-06-11 04:34] LABS: Anion Gap 6 (5-15); BUN 8 mg/dL (7-18); BUN/Creat Ratio 9.8 RATIO (10-20); Calcium,Total 8.7 mg/dL (8.5-10.1); Chloride 107 mmol/L (98-107); Creatinine, Serum 0.82 mg/dL (0.55-1.02); EST Glomerular Filtration Rate 87 mL/min (>60); Est Glom Filt Rate - Afr Amer 106 mL/min (>60); Estimated Creatinine Clearance 105.79 ml/min; Glucose 194 mg/dL (74-106); Potassium 3.3 mmol/L (3.5-5.1); Sodium Level 140 mmol/L (136-145)
[2024-06-11] MEDS: Piperacil/Tazobactam 3.375 GM in 0.9% Normal Saline (50mL MB+) 50 ML IV (05:11)
[2024-06-11] MEDS: Metoclopramide 10 MG/2 ML Vial 5 MG IV (05:11)
[2024-06-11] MEDS: 0.9% Saline Lock 10 ML Syringe IV ×2 (05:11→06:58)
[2024-06-11] MEDS: proCHLORPERazine 10 MG/2 ML Vial 5 MG IV (06:58)
--- NOTE | 2024-06-11 08:16 | NURSING ---
Patient set up for shower, which she has been showering independently. She was in shower and pulled assist cord. ASHLEY Piper went in to assist patient and patient was sitting on shower floor claimed she slipped and went to grab bars and hit her head on the bar. This RN and ASHLEY Piper assisted patient out of shower and back to bed. Bed exit turned on and instructed patient to call us for help, no getting up without our help now. Vitals obtained, blood glucose obtained, Dr. Knapp made aware.
[2024-06-11 08:28] LABS: Bedside Glucose 116 mg/dL (74-106)
--- NOTE | 2024-06-11 09:07 | DCINST_ITS ---
Discharge Instructions Diet Discharge Diet: - (Resume previous home diet) Activity Discharge Activity: Return to Normal Activity Weight Bearing Status: Full weight bearing Follow Up Care Test Results: Test results from this visit will be discussed in further detail at your follow- up appointment, if applicable. Discharge Plan Admission Admit Date/Time: 06/07/24 18:52 Primary Reason for Your Visit: Diabetic ketoacidosis Attending Provider: John Knapp Primary Care Provider: Care Physician,No Primary Consulting Providers: Ileana Lobo; Kenyetta Suarez Discharge Orders/Prescriptions Prescriptions: New Insulin Basal Pump (Pt's Own) [Pump, Basal] 1.8 unit subcut UD Qty: 0 0RF prochlorperazine maleate [Compazine] 10 mg tablet 10 mg PO TID PRN (Reason: nausea and vomiting) Qty: 30 0RF promethazine 25 mg tablet 25 mg PO Q6H PRN (Reason: nausea and vomiting) Qty: 60 0RF Rx Instructions: one or two every six hours for nausea Continued insulin lispro [Humalog U-100 Insulin] 100 unit/mL solution See Rx Instructions .ROUTE .COMPLEX Patient Comments: use IN THE INSULIN PUMP FOR A TOTAL DAILY DOSE OF 100 UNITS. 06/07/24- PUMP IS NOT CURRENTLY ATTACHED. PT NOT RECIEVING INSULIN. Rx Instructions: 100 U VIA PUMP DAILY; BASAL RATE - 1.8 UNITS/HOUR BOLUS: CARB RATIO- 1 UNIT /10 GRAMS OF CARBS CORRECTION- 1 UNIT FOR EVERY 30MG/DL BLOOD GLUCOSE OVER 120 (DME) pen needle, diabetic [Ultra-Thin II Ins Pen [place]] 29 gauge x 1/2 needle See Rx Instructions .Route Qty: 100 0RF Rx Instructions: As directed Skyrizi 150 mg/mL pen injector 150 mg subcut .[id number] Patient Comments: PT STATES LAST DOSE WAS LESS THAN A MONTH AGO ( OF 06/07/24) olanzapine [Zyprexa] 2.5 mg tablet 2.5 mg PO QHS 30 Days Qty: 30 0RF Discontinued promethazine 25 mg tablet 25 mg PO Q6H PRN (Reason: nausea and vomiting) Patient Comments: TAKE 1 TABLET BY MOUTH EVERY 6 HOURS NEEDED prochlorperazine maleate [Compazine] 5 mg tablet 5 mg PO Q6H PRN (Reason: nausea and vomiting) Referrals / Follow Up: Care Physician,No Primary [Primary Care Provider] - Disposition Disposition (needs filled in before D/C Order can be placed): Home, Self Care
--- NOTE | 2024-06-11 09:27 | DS.PCM_ITS ---
Providers Date of Admission: 06/07/24 Date of Discharge: 06/11/24 Primary Care Physician: Nya Primary Care Phys Reason For Visit: INTRACTABLE N/V Diagnosis Discharge Diagnosis (1) DKA, type 1: Status: Acute Code(s): E10.10 - Type 1 diabetes mellitus with ketoacidosis without coma Plan 1. DKA-resolved at this time, blood sugars will be monitored, patient is stable for transfer to [facility] 3 at this time #2 poorly controlled type 1 diabetes-complicates care, management, recovery, and prognosis #3 diabetic gastroparesis-patient will be placed on Reglan and Zithromax #4 chronic nausea and vomiting-probably secondary to diabetic gastroparesis- continue antiemetics at this time #5 PTSD #6 borderline personality disorder Total clinical time spent by myself addressing patient's medical issues, reviewing all of her data, and collaborating with patient's care team: 35 minutes Medications at Discharge Home Medications insulin lispro 100 unit/mL subcutaneous solution (Humalog U-100 Insulin) See Rx Instructions .Route .COMPLEX 04/27/23 pen needle, diabetic 29 gauge x 1/2 (Ultra-Thin II Insulin Pen [place]) #100 ea 08/10/23 risankizumab-rzaa 150 mg/mL subcutaneous pen injector (Skyrizi) 150 mg subcut .[id number] 02/07/24 Insulin Basal Pump (Pt's Own) [Pump, Basal] 1.8 unit subcut UD ##0 06/11/24 prochlorperazine maleate 10 mg tablet (Compazine) 10 mg PO TID PRN nausea and vomiting #30 tabs 06/11/24 promethazine 25 mg tablet 25 mg PO Q6H PRN nausea and vomiting #60 tabs 06/11/24 mirtazapine 15 mg tablet (Remeron) 15 mg PO QHS 30 days #30 tabs 06/12/24 Hospital Course Operations None Procedures None Summary of Care Provided Minutes Spent on Discharge: 31 Hospital Course: This 28-year-old white female was seen in the emergency room at [facility] with complaints of abdominal pain, nausea, and vomiting. Patient has a history of type 1 diabetes with gastroparesis, she is supposed to be on antinausea medications at home but has not had them refilled in several months. Workup in the emergency room included CBC which showed elevated white blood cell count, glucose was elevated at 355, potassium was 3.4, and the patient's anion gap was normal. Patient was admitted to [facility] for intractable nausea and vomiting, IV fluids were administered and antiemetics were given to the patient, her home medication for PTSD and borderline personality disorder was continued, glucose checks were performed with sliding scale insulin. The following day, patient was noted to have an elevated anion gap, she was started on insulin drip and continued to have nausea and vomiting. This gradually improved and the patient's anion gap closed and she was taken off her insulin drip. On 06/11/2024, patient was seen and examined: On examination she appeared in good health and spirits, she does not appear to be in any distress. Vital signs as documented. Skin warm and dry and without overt rashes. Neck without JVD, thyroid appears normal, trachea is midline, neck is supple. Lungs clear, normal air movement was noted. Heart exam notable for regular rhythm, normal sounds and absence of murmurs, rubs or gallops. Abdomen unremarkable and without evidence of organomegaly, masses, or abdominal aortic enlargement, bowel sounds are present in all 4 quadrants, no abdominal tenderness was noted. Extremities nonedematous, no cyanosis was noted, no clubbing was noted. Neuro: Cranial nerves II through XII are grossly intact, no focal motor deficits were noted, sensation to light touch and pinprick is intact, motor exam 5/5 throughout. Psych: Patient is alert and oriented x3, she does not appear anxious or depressed, she does not appear agitated. Patient appears stable for discharge home on 06/11/2024, she was given prescriptions for Compazine and Phenergan for nausea. Weight / BMI Weight Weight: 76.4 kg Body Mass Index (BMI) 24.9 ABG / Lab / Microbiology Data 06/10/24 04:02 06/11/24 04:08 Laboratory: Laboratory Results - last 24 hr 06/10/24 09:09: POC Glucose 85 06/10/24 09:57: Phosphorus 2.3 L 06/10/24 11:02: POC Glucose 93 06/10/24 14:28: POC Glucose 158 H 06/10/24 16:17: POC Glucose 120 H 06/10/24 20:29: POC Glucose 122 H 06/11/24 04:08: Sodium 140, Potassium 3.3 L, Chloride 107, Carbon Dioxide 27.0, Anion Gap 6, BUN 8, Creatinine 0.82, Estim Creat Clear Calc 105.79, Est GFR (MDRD) Af Amer 106, Est GFR (MDRD) Non-Af 87, BUN/Creatinine Ratio 9.8 L, G lucose 194 H, Calcium 8.7 06/11/24 04:12: POC Glucose 180 H 06/11/24 08:06: POC Glucose 116 H D/C Instructions Discharge Diet: - (Resume previous home diet) Weight Bearing Status: Full weight bearing Meaningful Use Info Meaningful Use Meaningful Use Diagnoses (Choose all that apply): None applicable Ischemic Stroke Statin Dosing Therapy Reference: STATIN DOSE THERAPY REFERENCE: * Patients > 75 years receive moderate or high dose statin therapy. * Patients 75 years or YOUNGER should receive HIGH intensity statin dose unless contraindicated. You will be required to document reason for non-treatment if statin daily dose does not meet guidelines. HIGH DOSE STATIN THERAPY DAILY Atorvastatin > than or = to 40 mg Rosuvastatin > than or = to 20 mg Amlodipine + Atorvastatin > than or = to 2.5/40 mg Ezetimibe + Simvastatin 10/80 mg Simvastatin 80mg Discharge Plan Admission Admit Date/Time: 06/07/24 18:52 Primary Reason for Your Visit: Diabetic ketoacidosis Attending Provider: John Knapp Primary Care Provider: Care Physician,No Primary Consulting Providers: Ileana Lobo; Kenyetta Suarez Discharge Orders/Prescriptions Prescriptions: New Insulin Basal Pump (Pt's Own) [Pump, Basal] 1.8 unit subcut UD Qty: 0 0RF prochlorperazine maleate [Compazine] 10 mg tablet 10 mg PO TID PRN (Reason: nausea and vomiting) Qty: 30 0RF promethazine 25 mg tablet 25 mg PO Q6H PRN (Reason: nausea and vomiting) Qty: 60 0RF Rx Instructions: one or two every six hours for nausea Continued insulin lispro [Humalog U-100 Insulin] 100 unit/mL solution See Rx Instructions .ROUTE .COMPLEX Patient Comments: use IN THE INSULIN PUMP FOR A TOTAL DAILY DOSE OF 100 UNITS. 06/07/24- PUMP IS NOT CURRENTLY ATTACHED. PT NOT RECIEVING INSULIN. Rx Instructions: 100 U VIA PUMP DAILY; BASAL RATE - 1.8 UNITS/HOUR BOLUS: CARB RATIO- 1 UNIT /10 GRAMS OF CARBS CORRECTION- 1 UNIT FOR EVERY 30MG/DL BLOOD GLUCOSE OVER 120 (DME) pen needle, diabetic [Ultra-Thin II Ins Pen [place]] 29 gauge x 1/2 needle See Rx Instructions .Route Qty: 100 0RF Rx Instructions: As directed Skyrizi 150 mg/mL pen injector 150 mg subcut .[id number] Patient Comments: PT STATES LAST DOSE WAS LESS THAN A MONTH AGO ( OF 06/07/24) Discontinued promethazine 25 mg tablet 25 mg PO Q6H PRN (Reason: nausea and vomiting) Patient Comments: TAKE 1 TABLET BY MOUTH EVERY 6 HOURS NEEDED prochlorperazine maleate [Compazine] 5 mg tablet 5 mg PO Q6H PRN (Reason: nausea and vomiting) No Action mirtazapine [Remeron] 15 mg tablet 15 mg PO QHS 30 Days Qty: 30 0RF Referrals / Follow Up: Care Physician,No Primary [Primary Care Provider] - Disposition Disposition (needs filled in before D/C Order can be placed): Home, Self Care Charges/Coding Visit Charges Inpatient E&M: 09452 Disch Hosp >30min
== END 2024-06-11 09:56 | disposition home or self-care (01) | DRG 74 ==
LOC: ED 17:33 → MS3 19:01 → ICU 06-08 09:39
PROVIDERS: Internal Medicine; Admitting Provider Internal Medicine; Emergency Provider Emergency Medicine; Visit Provider Internal Medicine
DX: E10.43 Type 1 diabetes mellitus with diabetic autonomic (poly)neuropathy (principal); Q87.40 Marfan syndrome, unspecified; E83.39 Other disorders of phosphorus metabolism; E10.10 Type 1 diabetes mellitus with ketoacidosis without coma; F60.3 Borderline personality disorder; K31.84 Gastroparesis; E87.6 Hypokalemia; D72.829 Elevated white blood cell count, unspecified; R11.2 Nausea with vomiting, unspecified; F12.90 Cannabis use, unspecified, uncomplicated; F17.210 Nicotine dependence, cigarettes, uncomplicated; F17.290 Nicotine dependence, other tobacco product, uncomplicated; Z79.4 Long term (current) use of insulin; K52.9 Noninfective gastroenteritis and colitis, unspecified; F43.10 Post-traumatic stress disorder, unspecified; Z79.891 Long term (current) use of opiate analgesic; Z79.899 Other long term (current) drug therapy
CPT/HCPCS: 36591; 36600; 74177; 80048; 80053; 81001; 81025; 82009; 82803; 82962; 83036; 83690; 83735; 84100; 84484; 85025; 87040; 99285; J7030; J7040; J7050; Q9967; A4216; J7799

== ENCOUNTER 2024-06-28 07:58 | Outpatient (RCR) | payer MEDICARE, MEDICAID, SELFPAY ==
[2024-06-28 00:17] VITALS: BP 133/85; PULSE 82
--- NOTE | 2024-06-28 09:05 | BH.SGPN.GN ---
Behaviors/Verbalizations/Mental Status: [] Eye contact is good. Motor activity is appropriate. Appearance is casual. Speech is Appropriate. Mood is depressed. Affect is congruent. Thoughts are linear and logical. No evidence of psychosis. Reviewed daily check in sheet and no reports of suicidal ideations or intent. Client Response/Progress/Benefit: [] Pt participated at times. Attentive. I got here today . Reports feeling alienated and shared that she has begun to isolate more. Awareness that this is a trigger for self-sabotage and decompensation which prompted her to complete opposite-action. She attended an AA sponsor group last evening and also engaged with additional support in an effort to not isolate. Progress noted. Benefited from group support, encouragment, and feeback. Will continue in IOP to prevent decompensation, stabilize mood, and improve functioning. Narrative Note: []
--- NOTE | 2024-06-28 10:16 | BH.SGPN.GN ---
Behaviors/Verbalizations/Mental Status: [] Eye contact is good. Motor activity is appropriate. Appearance is casual. Speech is Appropriate. Mood is content. Affect is congruent. Thoughts are linear and logical. No evidence of psychosis. Client Response/Progress/Benefit: [] Pt participated at times during group discussion. Engaged in group activity and attentive during psychoeducation. Along with peers, pt was able to identify barriers to taking action in their life. Identified several symptoms and stressors that pt feels are holding them back from progress such as fear of failure, people pleasing, and fear of rejection. Stated these things have kept pt from making self-care a priority in the past. Benefited from increased self-awareness of obstacles. Will continue IOP tx to prevent decompensation, further stabilize mood, and increase healthy coping. Narrative Note: []
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
--- NOTE | 2024-07-02 09:00 | BH.SGPN.GN ---
Behaviors/Verbalizations/Mental Status: [] Pt alert and oriented, casually dressed and groomed. Eye contact good. Motor activity appropriate. Speech within normal limits. Affect congruent, mood euthymic. Thoughts linear, logical, no signs of hallucinations or delusions. Reviewed pt?s symptom tracker, no risk for suicidal ideation, plan, or intent 07/02/24 Client Response/Progress/Benefit: []Pt was an active participant in group discussions. Attentive. Able to identify mental health wins including maintaining a boundary she recently set with her child and attending more AA meetings consistently. Pt's stressor today is that her step-daughter has been having more behavioral issues lately. Pt stated she is feeling on edge and optimistic this morning. Pt receptive to feedback from peers which pt reported was helpful. Progress noted. Benefited from group support, encouragement, and feedback. Will continue in IOP to promote mood stability, increase distress tolerance skills, and establish aftercare. Narrative Note: []
--- NOTE | 2024-07-02 11:20 | BH.SGPN.GN ---
Behaviors/Verbalizations/Mental Status: []Eye contact is good. Motor activity is appropriate. Appearance is casual. Speech is Appropriate. Mood is content. Affect is congruent. Thoughts are linear and logical. No evidence of psychosis. Client Response/Progress/Benefit: []Pt responded well to session AEB listening attentively to peers and taking notes throughout. Reports connecting with porous boundaries, especially with her time and emotional boundaries. Participated in group discussion brainstorming various strategies for improving healthy boundary setting. Pt reports wanting to improve her comfort levels with sharing her emotions in healthy ways. Seemed to benefit from increased awareness of how different boundary styles can impact mental health. Will continue IOP tx to prevent decompensation, improve daily functioning, and increase mood stability. Narrative Note: []
--- NOTE | 2024-07-04 10:15 | BH.SGPN.GN ---
Behaviors/Verbalizations/Mental Status: []Client alert and oriented, disheveled dressed and groomed. Eye contact good. Motor activity appropriate. Speech within normal limits. Affect congruent, mood euthymic. Thoughts linear, logical, no signs of hallucinations or delusions. Client Response/Progress/Benefit: [] Pt responded well to session, contributing to discussion and engaged during the activity. Group identified the benefits of change which included: better mental health, increased confidence, and improved relationships. Worked with the group to identify barriers to change, which included: uncomfortable emotions such as anxiety, lack of motivation, fear of failure, negative self-talk, and lack of support. Pt participated along with group in activity where they identified and discussed the emotions related to change. Pt discussed how even difficult emotions can push you to make meaningful change. Benefited from increased awareness and understanding of emotions, benefits, and barriers related to change. Will continue IOP tx to promote gains, improve daily functioning, and estbalish aftercare. Narrative Note: []
--- NOTE | 2024-07-04 11:15 | BH.SGPN.GN ---
Behaviors/Verbalizations/Mental Status: []Client alert and oriented, disheveled appearance. Eye contact good. Motor activity appropriate. Speech within normal limits. Affect congruent, mood euthymic. Thoughts linear, logical, no signs of hallucinations or delusions. Client Response/Progress/Benefit: [] Pt responded well to session, attentive throughout. Did well to actively listen and contributed when prompted as group worked to process activity. Pt worked with group to relate the strategies used to overcome barriers in the activity to managing change in own life. Pt identified a change they would like to make is ?reduce negative thinking and increase self-esteem.? Pt identified currently being in the action stage for this change. Pt said continuing with her daily affirmations can help pt get to the next stage. Appeared to benefit from identifying a change they want and how to progress. Pt will continue IOP tx to promote use of healthy coping skills, reinforce mood stability, and establish aftercare. Narrative Note: []
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
--- NOTE | 2024-07-05 09:05 | BH.SGPN.GN ---
Behaviors/Verbalizations/Mental Status: [] Pt alert and oriented, casually dressed and groomed. Eye contact fair, pt appearing to sleep at times in group session. Motor activity appropriate. Speech within normal limits. Affect congruent, mood content. Thoughts linear, logical, no signs of hallucinations or delusions. Reviewed pt?s symptom tracker, no risk for suicidal ideation, plan, or intent 07/05/24 Client Response/Progress/Benefit: []Pt was a somewhat active participant in group discussions. Attentive at times however also struggling with falling asleep at other times. Able to identify mental health wins including getting to group for her last day despite issues with pain and fatigue this morning. Additional win noted as successfully completing IOP tx. Pt reflected on progress with improved confident and emotion regulation, reduced depression, and increased self-care. Shared current stressor as needing her sink repaired and trying to find a time for the landlord to come to the apartment. Benefited from group support, encouragement, and feedback. Will d/c from IOP and continue in outpatient tx to prevent decompensation and maintain mood stability. Narrative Note: []
--- NOTE | 2024-07-05 10:10 | BH.SGPN.GN ---
Behaviors/Verbalizations/Mental Status: [] Eye contact is poor. Motor activity is appropriate. Appearance is disheveled. Presents as tired today often putting her head down on the desk. Speech is Appropriate. Mood is depressed. Affect is constricted. Thoughts are linear and logical. No evidence of psychosis Client Response/Progress/Benefit: [] Pt participated at times during the group discussions. Attentive at times during psychoeducation. Contributed during interactive discussions in which peers attempted to define crisis . Group identified crisis examples. Group also worked together to identify warning signs and unhealthy responses to crisis which included shutting down, isolation, avoidance, over-thinking, disordered eating, and self-harm. Benefited from increased understanding of crisis and awareness of personal responses to crisis. Will be discharged successfully from [facility] today. Narrative Note: []
--- NOTE | 2024-07-05 11:50 | BH.MDN_ITS ---
Multi-Disciplinary Note Note 30-min Individual: Time Started:: 08:37 Date: 07/05/24 Purpose of session/treatment goals addressed:: To address current stressors and discuss strategies to help cope with these stressors. Another goal was to discuss discharge and aftercare. Eye Contact:: Fair (reports struggling with fatigue) Motor Activity:: Appropriate Appearance:: Casual Speech:: Appropriate Mood:: Euthymic Affect:: Congruent Thoughts:: Linear, Logical and No evidence of hallucinations/delusions noted Staff Interventions:: motivational interviewing, discharge planning, strengths perspective and reviewed DSM-5 Client Response:: Pt responded well to session, open to meeting with therapist. Pt reports feeling mixed emotions today. Pt explained she is proud of the progress she has made throughout IOP tx, but also anxious to be discharging and worried about her ability to maintain gains made. Pt did well to reflect on various areas of progress which included improved communication with her fianc?, more consistent use of positive affirmations, reduced interpersonal conflict, and improved emotion regulation. Shared beliefs her relationships have improved as a result. Described ongoing stressors related to her physical health, but has taken steps to advocate for herself and begin having an aid help with housekeeping tasks pt is unable to do. Additionally, shared ongoing difficulties with consistent self-care but was able to recognize progress in reduced isolation, improved hygiene, and making more consistent efforts to engage in enjoyable activities. Pt celebrated 8 months of sobriety yesterday as well and noted that her improved mental health has aided in her ability to maintain sobriety. Pt has been consistent with applying coping skills, setting goals and following through using opposite action, sitting with discomfort, and communicating their needs. Pt did well during IOP and pt acknowledged that they put forth much effort while in the program which pt feels paid off. Risks/Concerns:: Pt denies any suicidal ideations, plan, or intent. Pt denies any thoughts of . Progress Toward Goals/Plan:: Pt will discharge from IOP tx today as pt has accomplished their goals. Pt?s overall symptom reduction is 48% since admission with anger decreasing by 50%, depression decreasing by 33%, and anxiety decreasing by 20%. Pt has increased self-confidence in her ability to manage anxiety and unexpected stressors, set healthy boundaries, and manage conflict within her relationship. Pt did well with identifying and challenging negative t hinking patterns and maladaptive behaviors reinforcing sx of depression. Pt reports improved sense of confidence and self-care as a result. Pt will continue seeing her outpatient psychiatrist through [facility] and begin with [facility] for individual outpatient counseling. Pt will start IOP aftercare next week on 07/11/24.
== END 2024-07-05 12:08 | disposition home or self-care (01) ==
LOC: BHIOP 07:58
PROVIDERS: Referring Provider Psychiatry & Neurology Psychiatry; Visit Provider Psychiatry & Neurology Psychiatry
DX: F33.2 Major depressive disorder, recurrent severe without psychotic features (principal); F43.10 Post-traumatic stress disorder, unspecified; F41.0 Panic disorder [episodic paroxysmal anxiety]; F60.3 Borderline personality disorder; Z79.899 Other long term (current) drug therapy
CPT/HCPCS: S9480; 90832; 90853

== ENCOUNTER 2024-07-11 15:17 | Outpatient (RCR) | payer MEDICARE, MEDICAID, SELFPAY ==
--- NOTE | 2024-07-11 16:49 | BH.MTP ---
Master Treatment Plan Patient Information Program Physician:: Dr. Edie Vera Primary Therapist:: CLYDE Knapp Psychiatric Diagnoses Psychiatric Diagnoses:: 1. Major depressive disorder, recurrent, severe without psychosis 2. PTSD 3. Panic disorder 4. Borderline personality disorder Diagnosis Code(s):: F 33.2 Estimated LOS Estimated LOS (in weeks):: 8 Problem/Goal #1 Problem/Goal #1 Stated Goal:: client will maintain or see a reduction in symptoms AEB client score on the DSM 5 cross-cutting measure and improve client's daily functioning. Objectives Objective #1: Stated Objective: Client will continue to consistently apply healthy coping skills to maintain progress made in IOP tx. Interventions: Through group therapy, client will review warning signs and triggers as well as healthy coping skills learned in IOP tx to successfully maintain gains while transitioning into outpatient therapy. Discharge Criteria: Client will have accomplished this goal when client's score on the DSM-5 cross-cutting measure has maintained or reduced over a 8 week period. Target Date: 09/05/24 Review Date: 08/08/24 Objective #2: Stated Objective: Client will learn and utilize 2-3 maintenance strategies to prevent decompensation from original IOP DSM-5 scores. Interventions: Through group therapy, client will be provided with education on healthy maintenance behaviors, relapse prevention techniques, and healthy coping strategies. Discharge Criteria: Client will have accomplished this goal when can report using at least 2 maintenance skills to prevent decompensation compared to original IOP DSM-5 scores Target Date: 09/05/24 Review Date: 08/08/24
== END 2024-07-27 23:59 ==
LOC: BHOG 15:17
PROVIDERS: Visit Provider Psychiatry & Neurology Psychiatry
DX: F33.2 Major depressive disorder, recurrent severe without psychotic features (principal); F43.10 Post-traumatic stress disorder, unspecified; F41.0 Panic disorder [episodic paroxysmal anxiety]; F60.3 Borderline personality disorder; Z79.899 Other long term (current) drug therapy
CPT/HCPCS: 90853

== ENCOUNTER 2024-08-01 16:03 | Emergency (ER) | payer MEDICARE, MEDICAID, SELFPAY ==
[2024-08-01 16:04] VITALS: BP 148/100; PULSE 81; RESP 18; TEMP 36.9; O2SAT 98; BMI 25.5
--- NOTE | 2024-08-01 16:21 | EDS_ITS ---
HPI History of Present Illness Chief Complaint: Anxiety Informant: patient Narrative Narrative: Sent in here after talking to behavioral health today. History of anxiety, depression, PTSD. She was with IOP earlier this year seeing weekly currently with aftercare. Still sees weekly however missed today. Increasing stress with her son having surgery last couple weeks for which her mom has custody. Mom is not allowing her to be involved with his care. Also holidays are coming up. She states with her anxiety and depression always has suicidal thoughts, however she states she has no plan she does not plan on acting on it. She denies homicidal ideations. She previously self cut however states it has been over a year. Not currently on medications. They have tried Remeron for her to sleep along with BuSpar. States BuSpar used to work. Currently not. She has appointment with psychiatry this coming Monday. Due to her anxiety she was sent here to help with medications until she has an appointment on Monday. Medically she has had a cough for few days no fevers. Occasional wheezing. Denies asthma history. She is a type I diabetic on insulin. Glucose was 147 earlier. Prior similar symptoms: Yes PFSH [facility] Medical History Metabolic acidosis Leukocytosis DKA, type 1 Intractable abdominal pain Intractable nausea and vomiting Panic disorder Major depressive disorder, recurrent severe without psychotic features Diabetic gastroparesis Substance abuse Kidney stones Kidney disease Smoker Intractable vomiting Type 1 diabetes Marfan syndrome PTSD (post-traumatic stress disorder) Borderline personality disorder Home Medications ?Medication ?Instructions ?Recorded ?Last Taken ?Type insulin lispro 100 unit/mL See Rx Instructions .Route .COMPLEX 04/27/23 06/06/24 History subcutaneous solution (Humalog U-100 Insulin) pen needle, diabetic 29 gauge x #100 ea 08/10/23 Unknown Rx 1/2 (Ultra-Thin II Insulin Pen [place]) risankizumab-rzaa 150 mg/mL 150 mg subcut .[id number] 02/07/24 Unknown History subcutaneous pen injector (Skyrizi) Insulin Basal Pump (Pt's Own) 1.8 unit subcut UD ##0 06/11/24 Unknown Rx [Pump, Basal] prochlorperazine maleate 10 mg 10 mg PO TID PRN nausea and 06/11/24 Unknown Rx tablet (Compazine) vomiting #30 tabs promethazine 25 mg tablet 25 mg PO Q6H PRN nausea and 06/11/24 Unknown Rx vomiting #60 tabs bisoprolol fumarate 5 mg tablet 5 mg PO BID 30 days #60 tabs 06/19/24 Unknown Rx buspirone 5 mg tablet 5 mg PO BID 06/19/24 Unknown History mirtazapine 15 mg tablet (Remeron) 15 mg PO QHS 30 days #30 tabs 06/19/24 Unknown Rx albuterol sulfate 90 mcg/actuation 1 - 2 puff inhalation Q4H PRN PRN 08/01/24 Unknown Rx aerosol inhaler (Ventolin HFA) Wheezing ##1 lorazepam 0.5 mg tablet (Ativan) 0.5 mg PO BID PRN anxiety #10 tabs 08/01/24 Unknown Rx Allergy/AdvReac Type Severity Reaction Status Date / Time adhesive tape Allergy Intermediate Rash Verified 08/01/24 16:04 cephalexin (From Keflex) Allergy Intermediate Other Verified 08/01/24 16:04 morphine Allergy Intermediate Rash Verified 08/01/24 16:04 oxycodone (From Percocet) Allergy Intermediate Rash Verified 08/01/24 16:04 ondansetron AdvReac I BLACK Verified 08/01/24 16:04 OUT AND LOSE CONTROL OF MY BLADDER Surgical History History of loop recorder Hx of appendectomy Hx of eye surgery H/O aortic root repair Social History Smoking Status: Current some day smoker tobacco type: cigarettes and e- cigarettes substance use type: marijuana ROS ROS ED Constitutional Constitutional ED: Denies chills, fever(s) or sweats Eyes Eyes: Denies change in vision ENT ENT ED: Denies dysphagia or sore throat Cardiovascular Cardiovascular: Denies chest pain, leg edema, palpitations or racing heartbeat Respiratory/Chest Respiratory/Chest: Reports cough; Denies dyspnea or dyspnea on exertion Gastrointestinal Gastrointestinal: Denies abdominal pain, diarrhea, nausea or vomiting Genitourinary Genitourinary ED: Denies dysuria, hematuria or urinary frequency Musculoskeletal Musculoskeletal: Denies back pain, extremity pain or neck pain Integumentary Denies rash or wounds Neurologic Neurologic: Denies headache(s), paresthesias or weakness Psychiatric Psychiatric: Reports anxiety EXAM Physical Exam Const Vital Signs: 08/01/24 16:04 08/01/24 17:39 Temperature 98.5 F 98.5 F Temperature Source Oral Pulse Rate 81 81 Respiratory Rate 18 18 Blood Pressure 148/100 H 136/78 H Blood Pressure Mean 116 97 Pulse Ox 98 98 Oxygen Delivery Method Room Air Positive well nourished and well developed Constitutional Narrative: Occasional cough, nontoxic General Appearance ED: well developed HEENT Reports moist mucous membranes normocephalic and atraumatic Eyes EOMs intact bilaterally and conjunctivae normal General Eye ED: Yes normal appearance of both eyes Neck no lymphadenopathy and supple General: Negative for tenderness Chest Wall Chest: Negative for tenderness Resp normal respiratory effort and normal air movement Effort and Inspection: symmetric chest movement; Negative for respiratory distress Cardio regular rate, regular rhythm and no murmurs Peripheral Pulses: pulses 2+ throughout GI normal to inspection, nondistended, normoactive bowel sounds and non-tender Palpation: Negative for guarding or rebound tenderness present Back/Spine no CVA tenderness and no thoracic nor lumbar tenderness Extremity normal to inspection General Extremety ED: Negative for edema or tenderness General Extremity: Negative for edema Neuro oriented x3 and no sensory deficits noted Sensorium / Orientation: awake and alert Psych Psych Narrative: Anxiety, has chronic suicidal thoughts however no plan. Skin no rashes or lesions noted and no wounds MDM MDM MDM Narrative Medical decision making narrative: Interventions / MDM: Differential diagnosis: Anxiety, bronchitis Diagnosis considered but do not suspect: N/A My EKG interpretation: N/A Imaging independently reviewed and interpreted by myself: 2 view chest x-ray: No acute process. External documents reviewed: N/A Test considered but not ordered:N/A ED course: Patient increasing anxiety with stress from son surgery and holidays. Chronic suicidal thoughts, currently does not feel she is at risk to herself at this time. Discussed with her appointment in 5 days with psychiatry, will plan on bridging her with Ativan for which helped her in the past twice a day for 5 days. Will check chest x-ray with her concerns of her cough. Chest x-ray negative. Reassured. Prescription for albuterol MDI. Short prescription for Ativan. She will keep her follow-up with her psychiatrist this coming Monday. All questions were answered. Re-evaluation: stable Disposition discussed with patient/family/significant other: Patient Case discussed with consulting clinician: N/A This note was generated with [employer] dictation software. It may contain incorrect words, spelling, and punctuation that were not noted in checking the note before signing. Radiography Diagnostic Testing: Clinical Impression(s) from Imaging Studies Chest X-Ray 08/01/24 16:35 IMPRESSION: No acute findings in the chest. Electronically Signed: Arsen Kay MD at 17:29 EST , Discharge Plan Triage Chief Complaint: Anxiety ED Provider: Olvin Ibarra Dx/Rx/DC Orders Clinical Impression: Anxiety, Bronchitis Instructions: Anxiety Disorders Tx, ED Bronchitis, No Antibiotic (Adult) Prescriptions: New lorazepam [Ativan] 0.5 mg tablet 0.5 mg PO BID PRN (Reason: anxiety) Qty: 10 0RF albuterol sulfate [Ventolin HFA] 90 mcg/actuation HFA aerosol inhaler 1 - 2 puff inhalation Q4H PRN PRN (Reason: Wheezing) Qty: 1 0RF No Action insulin lispro [Humalog U-100 Insulin] 100 unit/mL solution See Rx Instructions .ROUTE .COMPLEX Patient Comments: use IN THE INSULIN PUMP FOR A TOTAL DAILY DOSE OF 100 UNITS. 06/07/24- PUMP I S NOT CURRENTLY ATTACHED. PT NOT RECIEVING INSULIN. Rx Instructions: 100 U VIA PUMP DAILY; BASAL RATE - 1.8 UNITS/HOUR BOLUS: CARB RATIO- 1 UNIT /10 GRAMS OF CARBS CORRECTION- 1 UNIT FOR EVERY 30MG/DL BLOOD GLUCOSE OVER 120 (DME) pen needle, diabetic [Ultra-Thin II Ins Pen [place]] 29 gauge x 1/2 needle See Rx Instructions .Route Qty: 100 0RF Rx Instructions: As directed Skyrizi 150 mg/mL pen injector 150 mg subcut .[id number] Patient Comments: PT STATES LAST DOSE WAS LESS THAN A MONTH AGO ( OF 06/07/24) bisoprolol fumarate 5 mg tablet 5 mg PO BID 30 Days Qty: 60 0RF mirtazapine [Remeron] 15 mg tablet 15 mg PO QHS 30 Days Qty: 30 1RF Rx Instructions: 1 po q hs buspirone 5 mg tablet 5 mg PO BID Insulin Basal Pump (Pt's Own) [Pump, Basal] 1.8 unit subcut UD Qty: 0 0RF prochlorperazine maleate [Compazine] 10 mg tablet 10 mg PO TID PRN (Reason: nausea and vomiting) Qty: 30 0RF promethazine 25 mg tablet 25 mg PO Q6H PRN (Reason: nausea and vomiting) Qty: 60 0RF Rx Instructions: one or two every six hours for nausea Primary Care Provider: Care Physician,No Primary Referrals: Care Physician,No Primary [Primary Care Provider] - Activity Restrictions/Additional Instructions: Chest x-ray negative. Adjunct treatment as discussed, inhaler as needed. You were given short prescription for Ativan for your anxiety symptoms. Refill will be needed by your psychiatrist, however you will likely need to start a different medication. Print Language: Hong Konger Disposition Disposition: Home, Self Care Discharge Date/Time: 08/01/24 17:41
--- NOTE | 2024-08-01 16:35 | RAD_ITS ---
EXAM: XR CHEST, 2 VIEWS CLINICAL INDICATION: cough TECHNIQUE: Frontal and lateral views of the chest. COMPARISON: 09/24/2023 FINDINGS: LUNGS AND PLEURAL SPACES: Unremarkable. No consolidation or edema. No pneumothorax. No effusion. HEART: Unremarkable. Cardiac silhouette not enlarged. MEDIASTINUM: Central airways and mediastinal contour are unremarkable. BONES/JOINTS: Median sternotomy wires are intact. No acute fracture. SOFT TISSUES: Unremarkable. TUBES, LINES AND DEVICES: Left-sided Port-A-Cath in stable position. RAD/Chest PA and Lateral IMPRESSION: No acute findings in the chest. Electronically Signed: Arsen Kay MD at 17:29 EST ,
[2024-08-01 17:39] VITALS: BP 136/78; PULSE 81; RESP 18; TEMP 36.9; O2SAT 98
== END 2024-08-01 17:41 | disposition home or self-care (01) ==
PROVIDERS: Emergency Provider Emergency Medicine; Referring Provider Emergency Medicine; Visit Provider Emergency Medicine
DX: F41.9 Anxiety disorder, unspecified (principal); F60.3 Borderline personality disorder; F33.2 Major depressive disorder, recurrent severe without psychotic features; E10.9 Type 1 diabetes mellitus without complications; Z79.4 Long term (current) use of insulin; J40 Bronchitis, not specified as acute or chronic; R45.851 Suicidal ideations; R05.9 Cough, unspecified; F17.210 Nicotine dependence, cigarettes, uncomplicated; F17.290 Nicotine dependence, other tobacco product, uncomplicated; Z79.899 Other long term (current) drug therapy
CPT/HCPCS: 99282; 71046

== ENCOUNTER 2024-08-02 00:09 | Inpatient (IN) | payer MEDICARE, MEDICAID, SELFPAY ==
[2024-08-02] VITALS (27 sets, daily range): BP systolic 87–125; BP diastolic 41–89; PULSE 46–69; RESP 12–30; TEMP 35.8–36.9; O2SAT 96–100; BMI 25.5; BMI 24.7
[2024-08-02 00:41] LABS: Mucous, Urine 0 SEEN /hpf (<or=2+); Red Blood Cells-Urine 0 SEEN /hpf (0-5)
[2024-08-02] MEDS: DiphenhydrAMINE 50 MG/ML Syringe 25 MG IV (00:41)
[2024-08-02] MEDS: HYDROmorphone 0.5 MG/0.5 ML SYRINGE IV ×5 (00:41→19:50)
[2024-08-02] MEDS: proCHLORPERazine 10 MG/2 ML Vial IV ×2 (00:41→19:49)
[2024-08-02 00:43] LABS: Color, Urine Yellow (Yellow); Glucose, Dipstick 1000 mg/dl (Normal); Leukocyte Esterase-Dipstick Negative /ul (Negative); Nitrite-Dipstick Negative (Negative); Occult Blood-Urine Negative /ul (Negative); Protein-Dipstick 30 mg/dl (Negative); Urine Bilirubin Dipstick Negative (Negative); Urine Clarity Clear (Clear); Urine Urobilinogen 4 mg/dl (Normal)
[2024-08-02] MEDS: 0.9% Normal Saline (1000mL) 1,000 ML 999 ML IV (00:52)
[2024-08-02 00:57] LABS: Absolute Neutrophil Count 11.9 X10^3/uL (2.0-7.7); Basophil# 0.03 X10^3/uL; Basophil% 0.2 % (0-1); Hematocrit 38.3 % (37-47); Lymphocyte % 7.5 % (19-41); Mean Corp Hgb Conc 33.9 g/dL (32-36); Mean Corpuscular Hgb 29.7 pg (27.0-32.0); Mean Corpuscular Volume 87.6 fL (81-99); Monocyte# 0.38 X10^3/uL; Monocyte% 2.8 % (0-10); NRBC Flagged by Analyzer 0 % (0-5); Neutrophil # 11.86 X10^3/uL (2.7-7.7); Neutrophil % 88.9 % (47-70); Platelet Count 169 K/mm3 (150-450); RBC Distribution Width CV 12.3 % (11.6-14.6); RBC Distribution Width SD 39.6 fl (35.1-43.9); Red Blood Count 4.37 M/mm3 (4.2-5.4); White Blood Count 13.4 K/mm3 (4.4-11.0)
[2024-08-02 00:58] LABS: Internal QC Validated? YES +Cl - CLEAR BKGD; Pregnancy, Serum, hCG Quali. NEGATIVE Negative; Record Kit Lot#, Serum Preg. 872158
[2024-08-02 01:01] LABS: AST(SGOT) 13 U/L (15-37); Alanine Aminotransfer ALT/SGPT 15 U/L (13-56); Albumin, Serum 4.1 g/dL (3.2-5.0); Alkaline Phosphatase 78 U/L (45-117); Anion Gap 14 (5-15); BUN 14 mg/dL (7-18); BUN/Creat Ratio 16.6 RATIO (10-20); Bilirubin, Direct 0.38 mg/dL (0.00-0.30); Calcium,Total 8.9 mg/dL (8.5-10.1); Chloride 107 mmol/L (98-107); Creatinine, Serum 0.84 mg/dL (0.55-1.02); EST Glomerular Filtration Rate 84 mL/min (>60); Est Glom Filt Rate - Afr Amer 102 mL/min (>60); Estimated Creatinine Clearance 102.34 ml/min; Globulin 3.3 g/dL (2.2-4.2); Glucose 253 mg/dL (74-106); Lipase < 10 U/L (13-75); Magnesium 1.5 mg/dL (1.6-2.6); Potassium 3.4 mmol/L (3.5-5.1); Protein, Total 7.4 g/dL (6.4-8.2); Sodium Level 139 mmol/L (136-145)
[2024-08-02 01:07] LABS: Lactic Acid 2.2 mmol/L (0.4-1.9)
[2024-08-02 01:07] LABS: Bacteria 1+ /hpf (None Seen); Ketone-Dipstick 150 mg/dl (Negative); Squamous Epithelial Cells - UA 0-5 SEEN /hpf (5-10); White Blood Cells 0-5 SEEN /hpf (0-5)
--- NOTE | 2024-08-02 01:20 | EX.ED.DYSGE1 ---
HPI History of Present Illness Chief Complaint: Nausea/Vomiting/Diarrhea Informant: patient Narrative Narrative: Patient is a 29-year-old female with past medical history of type 1 diabetes as well as diabetic gastroparesis borderline personality disorder and PTSD. She states that today she began with bouts of nausea and vomiting as well as loose stool and diarrhea. The patient states that she has been in DKA in the past and with her symptoms she is concern for that once again and therefore comes to the hospital for evaluation. She denies any fevers or chills or known sick contacts [facility] Medical History Metabolic acidosis Leukocytosis DKA, type 1 Intractable abdominal pain Intractable nausea and vomiting Panic disorder Major depressive disorder, recurrent severe without psychotic features Diabetic gastroparesis Substance abuse Kidney stones Kidney disease Smoker Intractable vomiting Type 1 diabetes Marfan syndrome PTSD (post-traumatic stress disorder) Borderline personality disorder Home Medications ?Medication ?Instructions ?Recorded ?Last Taken ?Type insulin lispro 100 unit/mL See Rx Instructions .Route .COMPLEX 04/27/23 06/06/24 History subcutaneous solution (Humalog U-100 Insulin) pen needle, diabetic 29 gauge x #100 ea 08/10/23 Unknown Rx 1/2 (Ultra-Thin II Insulin Pen [place]) risankizumab-rzaa 150 mg/mL 150 mg subcut .[id number] 02/07/24 Unknown History subcutaneous pen injector (Skyrizi) Insulin Basal Pump (Pt's Own) 1.8 unit subcut UD ##0 06/11/24 Unknown Rx [Pump, Basal] prochlorperazine maleate 10 mg 10 mg PO TID PRN nausea and 06/11/24 Unknown Rx tablet (Compazine) vomiting #30 tabs promethazine 25 mg tablet 25 mg PO Q6H PRN nausea and 06/11/24 Unknown Rx vomiting #60 tabs bisoprolol fumarate 5 mg tablet 5 mg PO BID 30 days #60 tabs 06/19/24 Unknown Rx buspirone 5 mg tablet 5 mg PO BID 06/19/24 Unknown History mirtazapine 15 mg tablet (Remeron) 15 mg PO QHS 30 days #30 tabs 06/19/24 Unknown Rx albuterol sulfate 90 mcg/actuation 1 - 2 puff inhalation Q4H PRN PRN 08/01/24 Unknown Rx aerosol inhaler (Ventolin HFA) Wheezing ##1 lorazepam 0.5 mg tablet (Ativan) 0.5 mg PO BID PRN anxiety #10 tabs 08/01/24 Unknown Rx Allergy/AdvReac Type Severity Reaction Status Date / Time adhesive tape Allergy Intermediate Rash Verified 08/01/24 16:04 cephalexin (From Keflex) Allergy Intermediate Other Verified 08/01/24 16:04 morphine Allergy Intermediate Rash Verified 08/01/24 16:04 oxycodone (From Percocet) Allergy Intermediate Rash Verified 08/01/24 16:04 ondansetron AdvReac I BLACK Verified 08/01/24 16:04 OUT AND LOSE CONTROL OF MY BLADDER Surgical History History of loop recorder Hx of appendectomy Hx of eye surgery H/O aortic root repair Social History Smoking Status: Current some day smoker tobacco type: cigarettes and e-cigarettes substance use type: marijuana ROS ROS ED Constitutional Constitutional ED: Denies chills or fever(s) ENT ENT ED: Denies sore throat Cardiovascular Cardiovascular: Denies chest pain Respiratory/Chest Respiratory/Chest: Denies cough or dyspnea Gastrointestinal Gastrointestinal: Reports abdominal pain, diarrhea, nausea and vomiting Genitourinary Genitourinary ED: Denies dysuria Musculoskeletal Musculoskeletal: Denies myalgias Integumentary Denies rash Neurologic Neurologic: Denies headache(s) Psychiatric Psychiatric: Reports anxiety Hematologic/Lymphatic Hematologic/Lymphatic: Denies easy bleeding or easy bruising EXAM Physical Exam Const Vital Signs: 08/02/24 00:11 08/02/24 00:17 08/02/24 01:16 Temperature 96.5 F L 96.5 F L 97.6 F L Temperature Source Temporal Temporal Oral Pulse Rate 58 L 64 48 L Respiratory Rate 30 H 23 H 18 Blood Pressure 122/59 H 110/89 H 117/56 L Blood Pressure Mean 80 96 76 Pulse Ox 100 99 97 Oxygen Delivery Method Room Air Room Air Room Air Positive well nourished and well developed General Appearance ED: well developed; Negative for pallor HEENT HEENT Narrative: No tongue or lip swelling no oral lesions no airway edema or compromise No secondary findings in the posterior pharynx to suggest infection Eyes PERRL and EOMs intact bilaterally General Eye ED: Negative for scleral icterus Neck supple Neck Narrative: No nuchal rigidity or meningeal signs Resp clear to auscultation bilaterally Resp Narrative: Breath sounds are diminished throughout with tachypnea however no nasal flaring or retractions. Breath sounds are clear throughout as well Cardio regular rhythm Rate: bradycardia GI non-distended and no masses GI Narrative: Abdomen is soft and nondistended with hypoactive bowel sounds. There is mild diffuse pain with palpation without voluntary guarding or rigidity. No pulsatile mass Auscultation: hypoactive bowel sounds Palpation: soft Extremity normal to inspection Neuro oriented x3, CN's II-XII intact bilaterally and no sensory deficits noted Sensorium / Orientation: alert Motor Exam: strength 5/5 throughout Psych mental status grossly normal Skin no rashes or lesions noted General Skin Exam: Negative for jaundice or pallor MDM MDM MDM Narrative Medical decision making narrative: Patient arrived to ER bradycardic and tachypnic. She was admitted roughly 2 months ago for similar presentation in that time was in DKA. With the patient reported intractable nausea and vomiting and diarrhea and poor oral intake throughout the day today there is concern that she is progressing to DKA once again. Secondary to this basic blood work was obtained. Patient does have a white count of 13.4 but as she is afebrile and her abdomen is soft and nonsurgical I feel this is a stress response and not an infectious process and do not feel the need for a CT scan of her abdomen and pelvis. The patient's kidney function is normal going against acute kidney injury. However her CO2 is low and she has positive serum ketones as well as lactic acid consistent with DKA. After receiving IV hydration as well as Compazine the patient had improvement in her symptoms. However because of the history and workup indicating patient is progressing into DKA as she did 2 months ago the hospitalist was contacted. He agrees that at this time should be placed in the ICU and because of her history and exam indicating DKA that she be started on insulin drip. As her sugar is only borderline high at 250 should be placed on a D5 half-normal saline drip and as potassium is slightly low already at 3.4 potassium will be added. As the patient is a brittle diabetic in DKA is a critical condition should be kept in the ICU for further monitoring. This plan of care was discussed with the patient and she is agreeable to it History & Record Review Discussion w/independent historian: Patient Lab Data Attestation: I reviewed the patient's lab results. Labs: Laboratory Results - last 24 hr 08/02/24 08/02/24 00:30 00:35 WBC 13.4 H RBC 4.37 Hgb 13.0 Hct 38.3 MCV 87.6 MCH 29.7 MCHC 33.9 RDW Std Deviation 39.6 RDW Coeff of Joyce 12.3 Plt Count 169 MPV 13.0 H Immature Gran % (Auto) 0.600 Neut % (Auto) 88.9 H Lymph % (Auto) 7.5 L Stanley % (Auto) 2.8 Eos % (Auto) 0.0 Baso % (Auto) 0.2 Absolute Neuts (auto) 11.9 H Absolute Lymphs (auto) 1.00 Nucleated RBC % 0 Sodium 139 Potassium 3.4 L Chloride 107 Carbon Dioxide 17.0 L Anion Gap 14 BUN 14 Creatinine 0.84 Estim Creat Clear Calc 102.34 Est GFR (MDRD) Af Amer 102 Est GFR (MDRD) Non-Af 84 BUN/Creatinine Ratio 16.6 Glucose 253 H Lactic Acid 2.2 H* Calcium 8.9 Magnesium 1.5 L Total Bilirubin 1.20 H Direct Bilirubin 0.38 H AST 13 L ALT 15 Alkaline Phosphatase 78 Total Protein 7.4 Albumin 4.1 Globulin 3.3 Lipase < 10 L Serum , Qual NEGATIVE Urine Color Yellow Urine Clarity Clear Urine pH 6.0 Ur Specific [place] 1.020 Urine Protein 30 H Urine Glucose (UA) 1000 H Urine Ketones 150 A* Urine Occult Blood Negative Urine Nitrite Negative Urine Bilirubin Negative Urine Urobilinogen 4 H Ur Leukocyte Esterase Negative Urine RBC 0 SEEN Urine WBC 0-5 SEEN Ur Squamous Epith Cells 0-5 SEEN Urine Bacteria 1+ Urine Mucus 0 SEEN Acetone Level SMALL H ABG Data ABG results: ABG 08/02/24 01:18 Specimen Type ISABELLE Sample Site Not entered VBG pH 7.38 VBG pO2 46 H VBG HCO3 16 L VBG Total CO2 17 L VBG O2 Sat (Calc) 82 H VBG Base Excess -9 L POC Mix VBG pCO2 Pt Tmp 28.0 L O2 Delivery Device Room Air Management Discussion w/another healthcare provider: Hospitalist Critical Care Time Critical Care Time: Yes Critical care time (excluding procedures): Discussing w/Patient &/or Family/Sorter Laundry Articles, Arranging Admission or Transfer and - (Please note critical care time of 31 minutes) Discharge Plan Triage Chief Complaint: Nausea/Vomiting/Diarrhea ED Provider: Llu Singh Dx/Rx/DC Orders Clinical Impression: Diabetic ketoacidosis, Diabetic gastroparesis, Intractable nausea and vomiting, Type 1 diabetes Prescriptions: No Action insulin lispro [Humalog U-100 Insulin] 100 unit/mL solution See Rx Instructions .ROUTE .COMPLEX Patient Comments: use IN THE INSULIN PUMP FOR A TOTAL DAILY DOSE OF 100 UNITS. 06/07/24- PUMP IS NOT CURRENTLY ATTACHED. PT NOT RECIEVING INSULIN. Rx Instructions: 100 U VIA PUMP DAILY; BASAL RATE - 1.8 UNITS/HOUR BOLUS: CARB RATIO- 1 UNIT /10 GRAMS OF CARBS CORRECTION- 1 UNIT FOR EVERY 30MG/DL BLOOD GLUCOSE OVER 120 (DME) pen needle, diabetic [Ultra-Thin II Ins Pen [place]] 29 gauge x 1/2 needle See Rx Instructions .Route Qty: 100 0RF Rx Instructions: As directed Skyrizi 150 mg/mL pen injector 150 mg subcut .[id number] Patient Comments: PT STATES LAST DOSE WAS LESS THAN A MONTH AGO ( OF 06/07/24) bisoprolol fumarate 5 mg tablet 5 mg PO BID 30 Days Qty: 60 0RF mirtazapine [Remeron] 15 mg tablet 15 mg PO QHS 30 Days Qty: 30 1RF Rx Instructions: 1 po q hs buspirone 5 mg tablet 5 mg PO BID lorazepam [Ativan] 0.5 mg tablet 0.5 mg PO BID PRN (Reason: anxiety) Qty: 10 0RF albuterol sulfate [Ventolin HFA] 90 mcg/actuation HFA aerosol inhaler 1 - 2 puff inhalation Q4H PRN PRN (Reason: Wheezing) Qty: 1 0RF Insulin Basal Pump (Pt's Own) [Pump, Basal] 1.8 unit subcut UD Qty: 0 0RF prochlorperazine maleate [Compazine] 10 mg tablet 10 mg PO TID PRN (Reason: nausea and vomiting) Qty: 30 0RF promethazine 25 mg tablet 25 mg PO Q6H PRN (Reason: nausea and vomiting) Qty: 60 0RF Rx Instructions: one or two every six hours for nausea Primary Care Provider: Care Physician,No Primary Referrals: Care Physician,No Primary [Primary Care Provider] - Print Language: Panamanian Disposition Disposition: Acute Care Hospital [facility]
[2024-08-02 01:22] LABS: Blood Gas Specimen Type VEN; O2 Delivery Device Room Air; SITE Not entered; VBG BASE EXCESS -9 mmol/L (-1.0-3.5); VBG Bicarbonate 16 mmol/L (22-26); VBG PO2 46 mmHg (25-40); VBG SO2 82 % (50-70); VBG TCO2 17 mmol/L (23-33); VBG pH 7.38 (7.32-7.42)
--- NOTE | 2024-08-02 01:40 | HP.PCM.HOS_ITS ---
[facility] - General General Date of Admission: 08/02/24 Date of Service: 08/02/24 Chief Complaint: Abdominal Pain, Nausea, Vomiting and Diarrhea. HPI Tracee VILLA, is a 29 F with a past medical history of DM-1; poorly-controlled with Hyperglycemia in spite of insulin pump and recent admission here from June 07, 2024 to June 11, 2024 for treatment of DKA; with intractable nausea and vomiting, diabetic gastroparesis, history of substance abuse; with cannabis, tobacco abuse, Marfan syndrome; s/p aortic root repair, history of loop recorder, history of appendectomy, history of eye surgery, history of renal calculi, history of depression with psychotic features, panic disorder, borderline personality disorder, PTSD, listed allergy to ondansetron (LOC with urinary incontinence), listed allergy to Percocet (rash), listed allergy to morphine (rash) and listed allergy to cephalexin (?) who presents to [facility] ER complaining of abdominal pain with nausea, vomiting and diarrhea. Ms. Villa reports her symptoms began approximately 8 hours prior to admission with the abrupt-onset of nausea followed by vomiting with bilious emesis. She also admits to watery diarrhea with generalized weakness and malaise so she decided to come in for further evaluation and treatment. She states her symptoms are similar to her previous bouts of DKA. She denies associated fever, chills, chest pain, shortness of breath, headache, paresthesias, recent travel, recent antibiotics or known sick contacts. In the ER she was noted to have an elevated blood glucose of 253 mg/dL along with positive small serum ketones consistent with DKA complicated by Lactic Acidosis of 2.2 mmol/L and Hypokalemia of 3.4 mmol/L present on admission compounded by Watery Diarrhea and she was then admitted to the ICU for treatment under the DKA protocol for ongoing care for a stay that is expected to extend beyond 2 midnights. [facility] Medical History Metabolic acidosis Leukocytosis DKA, type 1 Intractable abdominal pain Intractable nausea and vomiting Panic disorder Major depressive disorder, recurrent severe without psychotic features Diabetic gastroparesis Substance abuse Kidney stones Kidney disease Smoker Intractable vomiting Type 1 diabetes Marfan syndrome PTSD (post-traumatic stress disorder) Borderline personality disorder Home Medications ?Medication ?Instructions ?Recorded ?Last Taken ?Type insulin lispro 100 unit/mL See Rx Instructions .Route .COMPLEX 04/27/23 06/06/24 History subcutaneous solution (Humalog U-100 Insulin) pen needle, diabetic 29 gauge x #100 ea 08/10/23 Unknown Rx 1/2 (Ultra-Thin II Insulin Pen [place]) risankizumab-rzaa 150 mg/mL 150 mg subcut .[id number] 02/07/24 Unknown History subcutaneous pen injector (Skyrizi) Insulin Basal Pump (Pt's Own) 1.8 unit subcut UD ##0 06/11/24 Unknown Rx [Pump, Basal] prochlorperazine maleate 10 mg 10 mg PO TID PRN nausea and 06/11/24 Unknown Rx tablet (Compazine) vomiting #30 tabs promethazine 25 mg tablet 25 mg PO Q6H PRN nausea and 06/11/24 Unknown Rx vomiting #60 tabs bisoprolol fumarate 5 mg tablet 5 mg PO BID 30 days #60 tabs 06/19/24 Unknown Rx buspirone 5 mg tablet 5 mg PO BID 06/19/24 Unknown History mirtazapine 15 mg tablet (Remeron) 15 mg PO QHS 30 days #30 tabs 06/19/24 Unknown Rx albuterol sulfate 90 mcg/actuation 1 - 2 puff inhalation Q4H PRN PRN 08/01/24 Unknown Rx aerosol inhaler (Ventolin HFA) Wheezing ##1 lorazepam 0.5 mg tablet (Ativan) 0.5 mg PO BID PRN anxiety #10 tabs 08/01/24 Unknown Rx Allergy/AdvReac Type Severity Reaction Status Date / Time adhesive tape Allergy Intermediate Rash Verified 08/01/24 16:04 cephalexin (From Keflex) Allergy Intermediate Other Verified 08/01/24 16:04 morphine Allergy Intermediate Rash Verified 08/01/24 16:04 oxycodone (From Percocet) Allergy Intermediate Rash Verified 08/01/24 16:04 ondansetron AdvReac I BLACK Verified 08/01/24 16:04 OUT AND LOSE CONTROL OF MY BLADDER Surgical History History of loop recorder Hx of appendectomy Hx of eye surgery H/O aortic root repair Social History Smoking Status: Current some day smoker tobacco type: cigarettes and e- cigarettes substance use type: marijuana ROS ROS Narrative Review of Systems: Constitutional: Patient denies fever or chills. Eyes: Patient denies changes in vision or discharge from eyes. ENT: Patient denies runny nose, sore throat or ear pain. Resp: Patient denies shortness of breath or cough. CV: Patient denies chest pain, palpitations or heart racing. GI: Patient admits to diffuse cramping abdominal pain with nausea, bilious emesis and watery diarrhea as per HPI. : Patient denies dysuria or hematuria. MSK: Patient denies arthralgias or myalgias. Skin: Patient denies rash, abscess or jaundice. Psych: Patient admits to anxiety but she denies SI or HI. Neuro: Patient denies headache, paresthesias or focal neurologic deficits. Allergy: Patient denies lip swelling, tongue swelling or urticaria. Hematology: Patient denies easy bleeding or easy bruisability. Endocrinology: Patient admits to polyuria and polydipsia but she denies polyphagia. 14 point review of systems otherwise negative except for positives noted above in HPI. Vital Signs Vital Signs Vital Signs: 08/02/24 00:11 08/02/24 00:17 08/02/24 01:16 Temperature 96.5 F L 96.5 F L 97.6 F L Temperature Source Temporal Temporal Oral Pulse Rate 58 L 64 48 L Respiratory Rate 30 H 23 H 18 Blood Pressure 122/59 H 110/89 H 117/56 L Blood Pressure Mean 80 96 76 Pulse Ox 100 99 97 Oxygen Delivery Method Room Air Room Air Room Air Weight Weight: 173 lb 1.006 oz Body Mass Index (BMI) 25.5 Physical Exam Const alert, oriented x3 and average body habitus Constitutional Narrative: Moderate distress noted with patient appearing acutely ill. General Appearance: cooperative HEENT normocephalic, head/scalp atraumatic and hearing grossly normal bilaterally HEENT Narrative: Mucous membranes dry. Eyes PERRL and EOMs intact bilaterally Neck no lymphadenopathy and supple Resp normal respiratory effort, no retractions, no use of accessory muscles and clear to auscultation bilaterally Cardio regular rate and regular rhythm GI normal to inspection, nondistended, normoactive bowel sounds, soft to palpation and non-distended GI Narrative: Mild diffuse pain with generalized TTP and hypoactive bowel sounds. Auscultation: hypoactive bowel sounds Extremity normal to inspection, full ROM and no clubbing, cyanosis or edema Skin Skin Narrative: Patient has no evidence of rash, abscess or jaundice. Neuro oriented x3, CN's II-XII intact bilaterally, moves all extremities and no focal motor deficits Sensorium / Orientation: awake, alert, oriented to person, oriented to place and oriented to time Speech: speech normal Psych Mood & Affect: anxious Results Medical Records Data Attestation: I reviewed the patient's medical records Lab / Micro Data Attestation: I reviewed the patient's lab results. 08/02/24 00:30 08/02/24 00:30 Labs: Laboratory Results - last 24 hr 08/02/24 00:30: WBC 13.4 H, RBC 4.37, Hgb 13.0, Hct 38.3, MCV 87.6, MCH 29.7, MCHC 33.9, RDW Std Deviation 39.6, RDW Coeff of Joyce 12.3, Plt Count 169, MPV 13.0 H, Immature Gran % (Auto) 0.600, Neut % (Auto) 88.9 H, Lymph % (Auto) 7.5 L , Cherry % (Auto) 2.8, Eos % (Auto) 0.0, Baso % (Auto) 0.2, Absolute Neuts (auto) 11.9 H, Absolute Lymphs (auto) 1.00, Nucleated RBC % 0, Sodium 139, Potassium 3.4 L, Chloride 107, Carbon Dioxide 17.0 L, Anion Gap 14, BUN 14, Creatinine 0.84, Estim Creat Clear Calc 102.34, Est GFR (MDRD) Af Amer 102, Est GFR (MDRD) Non-Af 84, BUN/Creatinine Ratio 16.6, Glucose 253 H, Lactic Acid 2.2 H*, Calcium 8.9, Magnesium 1.5 L, Total Bilirubin 1.20 H, Direct Bilirubin 0.38 H, AST 13 L, ALT 15, Alkaline Phosphatase 78, Total Protein 7.4, Albumin 4.1, Globulin 3.3, L ipase < 10 L, Serum , Qual NEGATIVE, Acetone Level SMALL H 08/02/24 00:35: Urine Color Yellow, Urine Clarity Clear, Urine pH 6.0, Ur Specific [place] 1.020, Urine Protein 30 H, Urine Glucose (UA) 1000 H, Urine Ketones 150 A*, Urine Occult Blood Negative, Urine Nitrite Negative, Urine Bilirubin Negative, Urine Urobilinogen 4 H, Ur Leukocyte Esterase Negative, Urine RBC 0 SEEN, Urine WBC 0-5 SEEN, Ur Squamous Epith Cells 0-5 SEEN, Urine Bacteria 1+, Urine Mucus 0 SEEN ABG Data ABG results: ABG 08/02/24 01:18 Specimen Type ISABELLE Sample Site Not entered VBG pH 7.38 VBG pO2 46 H VBG HCO3 16 L VBG Total CO2 17 L VBG O2 Sat (Calc) 82 H VBG Base Excess -9 L POC Mix VBG pCO2 Pt Tmp 28.0 L O2 Delivery Device Room Air Assessment & Plan Assessment/Plan (1) Diabetic ketoacidosis: QUALIFIERS: Diabetes mellitus type: type 1 Diabetes mellitus complication detail: without coma Qualified Code(s): E10.10 - Type 1 diabetes mellitus with ketoacidosis without coma (2) Intractable nausea and vomiting: (3) Type 1 diabetes: QUALIFIERS: Diabetes mellitus complication status: without complication Qualified Code(s): E10.9 - Type 1 diabetes mellitus without complications (4) Diabetic gastroparesis: (5) Watery diarrhea: (6) Lactic acidosis: (7) Hypokalemia: (8) Hypomagnesemia: PLAN: Plan 1. Elevated blood glucose of 253 mg/dL along with positive small serum ketones consistent with mild DKA in the setting of previously known DM-1; poorly- controlled with Hyperglycemia in spite of insulin pump and recent admission here from June 07, 2024 to June 11, 2024 for treatment of DKA - Admit to ICU for treatment under the DKA protocol. Continue IV insulin drip begun in the ER and titrate as needed until DKA resolves. Aggressively volume resuscitate. Check BMP q. 4 hours. Check serum phosphorus level. Check HgbA1c to objectively assess quality of diabetic control. Finally, we will consult clinical dietitian to help provide needed additional diabetic teaching with help appreciated in advance. 2. Intractable nausea, vomiting and abdominal pain due to #1 in the setting of previously known diabetic gastroparesis and listed allergy to ondansetron - Give Compazine IV prn for nausea and vomiting. Place scopolamine patch until nausea and vomiting have resolved. Give Toradol IV prn for tcwy-he-hgemceht (level 1- 5/10) pain or fever. Give Dilaudid IV prn for severe (level 6-10/10) pain. 3. Watery Diarrhea with Leukocytosis of 13.4 K present on admission complicating #1 & #2 - Check stool studies for Clostridium difficile A&B toxin PCR, fecal WBC's, stool O&P, stool culture and Hemoccult plus place on enteric precautions. Leukocytosis suspected to be reactive with no active signs of infection and UA unremarkable for UTI. 4. Mild Lactic Acidosis of 2.2 mmol/L present on admission arising from #1 - #3 - Continue care plan outlined above and monitor for improvement. 5. Hypokalemia of 3.4 mmol/L present on admission - Give supplemental IV KCl and then recheck BMP to ensure improvement. 6. Hypomagnesemia of 1.5 mg/dL present on admission - Give 2g IV magnesium sulfate once and then recheck level to confirm repletion. 7. History of substance abuse - Check UDS to screen for possible illicit substances that may be contributing to #1. 8. History of tobacco abuse - Tobacco cessation will be strongly encouraged with Nicotine patch offered to control cravings. 9. History of depression with psychotic features, panic disorder, borderline personality disorder and PTSD adding to the medical complexity of #1 - #8 - Restart home regimen when patient is able to tolerate oral intake. Give IV Ativan prn agitation for now. 10. Marfan syndrome; s/p aortic root repair - Noted. 11. History of loop recorder - Noted. 12. History of appendectomy - Noted. 13. History of eye surgery - Noted. 14. History of renal calculi - Noted with no signs of recurrence. 15. Listed allergy to Percocet (rash) - Noted. 16. Listed allergy to morphine (rash) - Noted. Give IV Benadryl prn for allergic symptoms. 17. Listed allergy to cephalexin (?) - Noted. 18. DVT/GI prophylaxis - Lovenox 40 mg sq daily plus SCD's. Protonix 40 mg IV daily. Total time: Approximately (but not less than) 75 minutes. Charges/Coding Visit Charges Inpatient E&M: 48151 Init Hosp L3
[2024-08-02 02:12] LABS: Bedside Glucose 251 mg/dL (74-106)
[2024-08-02] MEDS: KCL 20MEQ in D5.45NS 20 MEQ/1,000 ML IV.SOLN. 100 MEQ IV (02:14)
[2024-08-02] MEDS: Magnesium Sulfate 2 GM in Dextrose 5%-Water (100mL Bag) 100 ML IV (02:44)
[2024-08-02] MEDS: Insulin Lispro 100 UNIT in 0.9% Normal Saline (100mL Bag) 99 ML 7.9 UNIT CONT INF (02:44)
[2024-08-02 02:54] LABS: Amphetamine Urine VISTA NEGATIVE (<1000 ng/mL); Barbiturate Urine VISTA NEGATIVE (< 200 ng/mL); Benzodiazepine Urine VISTA NEGATIVE (< 200 ng/mL); Cocaine Urine VISTA NEGATIVE (< 300 ng/mL); Ecstacy Urine VISTA NEGATIVE (< 500 ng/mL); Methadone Urine VISTA NEGATIVE (< 300 ng/mL); PCP Urine VISTA NEGATIVE (< 25 ng/mL); THC Urine VISTA POSITIVE (< 50 ng/mL); Vista UDS pH Range 5
[2024-08-02 02:54] LABS: Lactic Acid 0.9 mmol/L (0.4-1.9)
[2024-08-02 03:54] LABS: Bedside Glucose 263 mg/dL (74-106)
[2024-08-02 04:33] LABS: Reflex Lactate? Y
[2024-08-02 05:31] LABS: Lactic Acid 1.4 mmol/L (0.4-1.9)
[2024-08-02] MEDS: Scopolamine 1mg/72hr Patch 1 PATCH TD (06:46)
[2024-08-02 06:53] LABS: Bedside Glucose 147 mg/dL (74-106)
[2024-08-02 07:52] LABS: Bedside Glucose 123 mg/dL (74-106)
[2024-08-02 08:20] LABS: Hemoglobin A1c 7.9 % (3.8-5.6)
[2024-08-02 08:24] LABS: Bedside Glucose 95 mg/dL (74-106)
--- NOTE | 2024-08-02 09:13 | US_ITS ---
EXAM: US RETROPERITONEAL LIMITED, RENAL CLINICAL INDICATION: B/L renal angle pain. H/o kidney stone. DKA TECHNIQUE: Limited grayscale and color Doppler sonographic evaluation of the retroperitoneum was performed. COMPARISON: No relevant prior studies available. FINDINGS: RIGHT KIDNEY: The right kidney measures 11.5 x 5.7 x 5.7 cm. Right renal cortex measures 1.6 cm. No hydronephrosis. No shadowing calculus. No perinephric collection is demonstrated. LEFT KIDNEY: The left kidney measures 11.8 x 5.1 x 4.5 cm. The left renal cortex measures 1.3 cm. No hydronephrosis. No shadowing calculus. No perinephric collection is demonstrated. BLADDER: There is a 7 x 5 x 2 mm calcification posterior to the left aspect of the bladder. There are bilateral ureteral jets present. The bladder wall measures 9 mm. The bladder measures 7.4 x 6.6 x 8.7 cm for volume of 222 mL. US/Kidney and Bladder IMPRESSION: No abnormalities within the kidneys. There is a small calcification posterior to the left bladder which may represent a phlebolith. There are bilateral ureteral jets present. Electronically Signed: Arsen Kay MD at 16:24 EST ,
[2024-08-02] MEDS: KCL 20MEQ in D5.45NS 20 MEQ/1,000 ML IV.SOLN. 500 MEQ IV (09:46)
[2024-08-02 10:29] LABS: Bedside Glucose 121 mg/dL (74-106)
[2024-08-02] MEDS: Enoxaparin 40 MG/0.4 ML Syringe SC (10:33)
[2024-08-02] MEDS: Pantoprazole Sodium 40 MG in 0.9% Normal Saline (100mL MB+) 100 ML 330 MG IV (10:33)
[2024-08-02] MEDS: 0.9% Saline Lock 10 ML Syringe IV ×4 (10:35→19:04)
[2024-08-02 11:24] LABS: Magnesium 2.5 mg/dL (1.6-2.6); Phosphorus 2.2 mg/dL (2.5-4.9)
[2024-08-02 11:24] LABS: Bedside Glucose 83 mg/dL (74-106)
[2024-08-02 12:37] LABS: Bedside Glucose 147 mg/dL (74-106)
--- NOTE | 2024-08-02 12:45 | CASEMGMT ---
STIVEN SMILEY Assessment ? Face to Face with patient for initial?transition planning/care coordination assessment. STIVEN SMILEY introduced self and role at [facility], pt voices understanding. Pt is A&Ox4 and is resting comfortably in bed and is calm. Care providers, pharmacy, and demographics verified. ? Admitting dx: ?DKA with nausea vomiting and diarrhea LACE Strata: ?3 PCP: ?patient does not have an official primary care provider. Provider was given PCP list at this time. Pt was given this list in May but misplaced it. Patient states that she has assistance through [employer]. States that this resource is able to assist with appointments and specialist referrals. Patient states that she plans to get established with an official PCP. Specialists: Narinder ([facility] endocrinology), Concetta ([facility] GI), Kevin ([facility]) Preferred Pharmacy: [facility] Insurance: ?[employer], [facility] [employer] Prescription Benefit: ?Yes LNOK: ?Tiffanie Donis ([place]) Living Arrangements: patient lives with her significant other on the second floor of an apartment with a flight of steps to manage.? ADLs/IADLs:?patient states that she tries to remain as independent as possible. However, the patient does have an aide through [employer] who comes three times per week to assist with cleaning as well as bathing at times. Transportation: ?patient states that her and her significant other are working on getting their license back. During this time they have been using insurance and public transportation. DME: ?patient has a blood glucose monitor with sufficient supplies. Patient states that she has an insulin pump that is working. Patient states that she has insulin shots as a backup. Patient states that she is working on getting a continuous blood glucose monitor. Patient also has a blood pressure monitor. HHC/SNF: ?Denies Merchandising Director: patient has a catalytic case operator through [facility] (Leandra Person @ [phone]). Telephone call to Ana Luisa at this time and updated on patient status. Leandra states that she would like the discharge summary faxed to her at time of discharge to [phone]. Pt?s goal:?Better control diabetes mellitus and return home with significant other and CCN. Plan: ?anticipate discharge home with CCN. Patient states that she would be interested in shelter home healthcare. However, the patient would most likely not be considered homebound, and the patient is not established with a PCP. Patient was educated about [facility] and the patient states that she would be interested in this service. Referral place in [facility]. Pt denies any further questions or concerns at this time. Sinai Bello RN CM
[2024-08-02] MEDS: KCL 20MEQ in D5.45NS 20 MEQ/1,000 ML IV.SOLN. 250 MEQ IV ×2 (12:54→17:01)
[2024-08-02] MEDS: Ketorolac 15 MG/ML Vial IV (13:00)
[2024-08-02 13:30] LABS: Bedside Glucose 102 mg/dL (74-106)
[2024-08-02 15:30] LABS: Bedside Glucose 163 mg/dL (74-106)
--- NOTE | 2024-08-02 15:38 | PCM.PN.HOSP ---
Reason for Visit Reason for Visit: Diagnoses Type 1 diabetes mellitus with ketoacidosis without coma (08/02/24) Type 1 diabetes mellitus without complications (08/02/24) 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 (poly)neuropathy (08/02/24) Hypomagnesemia (08/02/24) Acidosis, unspecified (08/02/24) Hypokalemia (08/02/24) Gastroparesis (08/02/24) Nausea with vomiting, unspecified (08/02/24) Diarrhea, unspecified (08/02/24) Objective Data Objective Data Vital Signs: Vital Signs Temp Pulse Resp BP Pulse Ox O2 Del Method 97.9 F 59 L 14 90/46 L 99 Room Air 08/02/24 06:00 08/02/24 06:30 08/02/24 06:30 08/02/24 06:30 08/02/24 06:30 08/02/24 06:30 Oxygen Delivery Method Room Air Weight: 167 lb 15.876 oz Body Mass Index (BMI) 24.7 Intake & Output: Intake and Output for Last 24 Hours 07/31/24 08/01/24 08/02/24 23:59 23:59 23:59 Intake Total 1132.44 / 1132.44 Output Total 0 / 0 Balance 1132.44 / 1132.44 Lab / Micro Data 08/02/24 00:30 08/02/24 00:30 Labs: Laboratory Results - last 24 hr 08/02/24 00:30: WBC 13.4 H, RBC 4.37, Hgb 13.0, Hct 38.3, MCV 87.6, MCH 29.7, MCHC 33.9, RDW Std Deviation 39.6, RDW Coeff of Joyce 12.3, Plt Count 169, MPV 13.0 H, Immature Gran % (Auto) 0.600, Neut % (Auto) 88.9 H, Lymph % (Auto) 7.5 L, [place] % (Auto) 2.8, Eos % (Auto) 0.0, Baso % (Auto) 0.2, Absolute Neuts (auto) 11.9 H, Absolute Lymphs (auto) 1.00, Nucleated RBC % 0, Sodium 139, Potassium 3.4 L, Chloride 107, Carbon Dioxide 17.0 L, Anion Gap 14, BUN 14, Creatinine 0.84, Estim Creat Clear Calc 102.34, Est GFR (MDRD) Af Amer 102, Est GFR (MDRD) Non-Af 84, BUN/Creatinine Ratio 16.6, Glucose 253 H, Lactic Acid 2.2 H*, Calcium 8.9, Magnesium 1.5 L, Total Bilirubin 1.20 H, Direct Bilirubin 0.38 H, AST 13 L, ALT 15, Alkaline Phosphatase 78, Total Protein 7.4, Albumin 4.1, Globulin 3.3, Lipase < 10 L, Serum , Qual NEGATIVE, Acetone Level SMALL H 08/02/24 00:35: Urine Color Yellow, Urine Clarity Clear, Urine pH 6.0, Ur Specific [place] 1.020, Urine Protein 30 H, Urine Glucose (UA) 1000 H, Urine Ketones 150 A*, Urine Occult Blood Negative, Urine Nitrite Negative, Urine Bilirubin Negative, Urine Urobilinogen 4 H, Ur Leukocyte Esterase Negative, Urine RBC 0 SEEN, Urine WBC 0-5 SEEN, Ur Squamous Epith Cells 0-5 SEEN, Urine Bacteria 1+, Urine Mucus 0 SEEN 08/02/24 01:54: POC Glucose 251 H 08/02/24 01:57: Urine Opiates Screen NEGATIVE, Urine Methadone Screen NEGATIVE, Ur Barbiturates Screen NEGATIVE, Ur Phencyclidine Scrn NEGATIVE, Ur Amphetamines Screen NEGATIVE, MDMA (Ecstasy) Screen NEGATIVE, U Benzodiazepines Scrn NEGATIVE, Urine Cocaine Screen NEGATIVE, U Cannabinoids Screen POSITIVE H, Ur Drug Screen Comment 08/02/24 02:12: Lactic Acid 0.9 08/02/24 03:36: POC Glucose 263 H 08/02/24 04:41: Lactic Acid 1.4 08/02/24 06:29: POC Glucose 147 H ABG Data ABG results: ABG 08/02/24 01:18 Specimen Type ISABELLE Sample Site Not entered VBG pH 7.38 VBG pO2 46 H VBG HCO3 16 L VBG Total CO2 17 L VBG O2 Sat (Calc) 82 H VBG Base Excess -9 L POC Mix VBG pCO2 Pt Tmp 28.0 L O2 Delivery Device Room Air Physical Exam Narrative Seen and examined. Patient feels very weak, lethargic and sleepy. She is thirsty and dehydrated. Complain of bilateral renal angle pain. History of kidney stone Physical exam General: Alert, Oriented x3, Cooperative HEENT: Atraumatic, PERRLA, EOMI, Normocephalic Oral: Oral mucosa very dry. No Gingival or Mucosal Lesions/ Ulcerations Neck: Supple, No JVD, Negative Carotid Bruits Chest wall/Lungs: Air entry diminished in bilateral lung bases. No crepitation/rhonchi Cardiovascular: Regular rate, Regular Rhythm, Normal S1, Normal S2, No M/G/R Abdomen: Bowel Sounds Present, Soft, Non Tender, Non-Distended : No dysuria. Dark-colored urine. Mild bilateral renal angle tenderness. No suprapubic tenderness. Extremities: No edema, Capillary Refill Less than 3 Seconds Skin: No rashes, No breakdown Musculoskeletal: No Tenderness to Palpation of Joints or Extremities Neurological: Cranial nerves II-XII grossly intact, DTR 2+/4. No acute focal neurological deficit. Psych/Mental Status: Flat affect Assessment & Plan Assessment/Plan (1) Diabetic ketoacidosis: QUALIFIERS: Diabetes mellitus complication detail: without coma Diabetes mellitus type: type 1 Qualified Code(s): E10.10 - Type 1 diabetes mellitus with ketoacidosis without coma (2) Intractable nausea and vomiting: (3) Type 1 diabetes: QUALIFIERS: Diabetes mellitus complication status: without complication Qualified Code(s): E10.9 - Type 1 diabetes mellitus without complications (4) Diabetic gastroparesis: (5) Watery diarrhea: (6) Lactic acidosis: (7) Hypokalemia: (8) Hypomagnesemia: PLAN: Plan 29-year-old female was admitted nausea, vomiting, loose stool and diarrhea and lab features consistent with DKA. Denies fever or chill 1. DKA: Glucose 253, a small positive acetone with history of DKA: Patient is still symptomatic with lethargy, nausea and admitted in the ICU. On insulin drip. Glucose is 95 but patient is still in DKA therefore IV fluid D5 half NS plus KCl to continue. Fluid 500 mL/h for 1 L and then to 50 mL/h for next 2 L. Continue BMP every 4 hourly while anion gap is normal. On low-dose insulin drip. Lactic acidosis from DKA /6: Anion gap 4 never high. Bicarb 17 but patient has positive stool and symptoms of DKA as mentioned above. Orders to change insulin drip to Lantus insulin and Accu-Chek before meals and at bedtime with Humalog sliding scale coverage and hypoglycemia protocol. 2. Electrolyte abnormality due to DKA, diarrhea, nausea and vomiting: Patient has mild leukocytosis due DKA. Continue IV fluid replacement. Hypomagnesemia, magnesium 1.5.. Phosphorus ordered. Lipase less than 10. Serum negative Magnesium replacement ordered. Stool studies are ordered but I think her diarrhea is manifestation of DKA 3. Bilateral renal angle pain with history of kidney stone: She spontaneously passed the kidney stone in the past. Denies dysuria/burning micturition. UA shows WBC 0-5, squamous with 9 0-5 negative LE and nitrite therefore UTI unlikely. 4. History of substance abuse and tobacco use-U tox positive of cannabinoids. Tobacco cessation advised 5 history of depression with psychotic features, panic disorder, borderline personality disorder and PTSD adding to the medical complexity of #1 - #8 - Restart home regimen when patient is able to tolerate oral intake. Give IV Ativan prn agitation for now. 6 Marfan syndrome; s/p aortic root repair - Noted. DVT/GI prophylaxis - Lovenox 40 mg sq daily plus SCD's. Protonix 40 mg IV daily. Total time: Approximately (but not less than) 75 minutes. Charges/Coding Visit Charges Inpatient E&M: 53257 Subs Hosp L3
--- NOTE | 2024-08-02 17:02 | CHAPLAIN ---
Type of Pastoral Visit _x__ Initial Visit ___ Follow-up Visit ___ On-call Visit ___ General Patient Visit ___ Spiritual Assessment ___ Family Conference ___ Bereavement ___ Rapid Response ___ Code Blue ___ Other (describe below) Pastoral Care Referral From _x__ Patient ___ Family ___ Nurse ___ Physician ___ [employer] ___ Supervisor [employer] ___ Other (describe below) Sacrament/Intervention ___ Active listening ___ Anointing ___ Orthodox ___ Bereavement ___ Communion ___ Pinky exploration ___ ___ Life review ___ Prayer ___ Reconciliation ___ Sacrament of Sick _x__ Supportive presence ___ Wedding ___ Other (describe below) Pastoral Comments patient appears to be very uncomfortable and states that I am not feeling very well right now; RN is in the room ready to assist patient; offer to patient of another time for visit and she agreed
[2024-08-02 17:08] LABS: Bedside Glucose 90 mg/dL (74-106)
[2024-08-02] MEDS: Insulin Glargine-YFGN 100 UNIT/ML Pen 10 UNIT SC (17:28)
[2024-08-02 17:42] LABS: Anion Gap 5 (5-15); BUN 8 mg/dL (7-18); BUN/Creat Ratio 11.7 RATIO (10-20); Calcium,Total 7.7 mg/dL (8.5-10.1); Chloride 116 mmol/L (98-107); Creatinine, Serum 0.68 mg/dL (0.55-1.02); EST Glomerular Filtration Rate 107 mL/min (>60); Est Glom Filt Rate - Afr Amer 130 mL/min (>60); Estimated Creatinine Clearance 126.42 ml/min; Glucose 116 mg/dL (74-106); Potassium 3.8 mmol/L (3.5-5.1); Sodium Level 141 mmol/L (136-145)
[2024-08-02 19:25] LABS: Bedside Glucose 77 mg/dL (74-106)
[2024-08-02] MEDS: Insulin Lispro 100 UNIT/ML INSULN.PEN SC (21:41)
[2024-08-02 21:57] LABS: Bedside Glucose 246 mg/dL (74-106)
[2024-08-03] VITALS (15 sets, daily range): BP systolic 91–129; BP diastolic 47–74; PULSE 43–56; RESP 13–19; TEMP 36.6–36.8; O2SAT 92–99; BMI 26.0
[2024-08-03 00:19] LABS: Bedside Glucose 153 mg/dL (74-106)
[2024-08-03] MEDS: HYDROmorphone 0.5 MG/0.5 ML SYRINGE IV ×2 (02:50→08:37)
[2024-08-03 03:29] LABS: Anion Gap 5 (5-15); BUN 6 mg/dL (7-18); BUN/Creat Ratio 9.9 RATIO (10-20); Calcium,Total 7.9 mg/dL (8.5-10.1); Chloride 114 mmol/L (98-107); Creatinine, Serum 0.61 mg/dL (0.55-1.02); EST Glomerular Filtration Rate 123 mL/min (>60); Est Glom Filt Rate - Afr Amer 149 mL/min (>60); Estimated Creatinine Clearance 140.93 ml/min; Glucose 193 mg/dL (74-106); Phosphorus 1.8 mg/dL (2.5-4.9); Potassium 4.5 mmol/L (3.5-5.1); Sodium Level 140 mmol/L (136-145)
[2024-08-03 08:23] LABS: Bedside Glucose 256 mg/dL (74-106)
[2024-08-03] MEDS: Pantoprazole Sodium 40 MG in 0.9% Normal Saline (100mL MB+) 100 ML 330 MG IV (08:24)
[2024-08-03] MEDS: Insulin Glargine-YFGN 100 UNIT/ML Pen 10 UNIT SC (08:27)
[2024-08-03] MEDS: Enoxaparin 40 MG/0.4 ML Syringe SC (08:27)
[2024-08-03] MEDS: Insulin Lispro 100 UNIT/ML INSULN.PEN SC ×2 (08:28→11:23)
[2024-08-03] MEDS: 0.9% Saline Lock 10 ML Syringe IV ×5 (08:37→13:38)
--- NOTE | 2024-08-03 09:12 | DCINST_ITS ---
Discharge Instructions Diet Discharge Diet: 1800 Calorie Control Diet and - (Advised to drink a lot of water. About 2 L/day) DC O2, CPAP, BIPAP needs Additional Home O2 Discharge instructions: No Dressing / Incision Discharge Activity: Return to Normal Activity Weight Bearing Status: Weight bearing as tolerated Dressing / Incision Call your doctor if you observe: Fever of 101 or Higher, Coldness, Increased Pain, Numbness or Tingling, Change in Color, Inability to urinate, Inability to have a bowel movement, Using more than 1 pad per hour, Shortness of breath, Dizziness, Fainting spells, Swelling in the ankles, Chest pain, Prolonged hiccupping, Increased palpitations (irregular heartbeat) and Calf discomfort Follow Up Care When: IN 2 WEEKS Test Results: Test results from this visit will be discussed in further detail at your follow- up appointment, if applicable. Discharge Plan Admission Admit Date/Time: 08/02/24 01:48 Primary Reason for Your Visit: DKA Attending Provider: Estevan Davis Primary Care Provider: Care Physician,No Primary Consulting Providers: Horacio Duvall Discharge Orders/Prescriptions Prescriptions: Continued insulin lispro [Humalog U-100 Insulin] 100 unit/mL solution See Rx Instructions .ROUTE .COMPLEX Patient Comments: use IN THE INSULIN PUMP FOR A TOTAL DAILY DOSE OF 100 UNITS. 06/07/24- PUMP IS NOT CURRENTLY ATTACHED. PT NOT RECIEVING INSULIN. Rx Instructions: 100 U VIA PUMP DAILY; BASAL RATE - 1.8 UNITS/HOUR BOLUS: CARB RATIO- 1 UNIT /10 GRAMS OF CARBS CORRECTION- 1 UNIT FOR EVERY 30MG/DL BLOOD GLUCOSE OVER 120 (DME) pen needle, diabetic [Ultra-Thin II Ins Pen [place]] 29 gauge x 1/2 nee dle See Rx Instructions .Route Qty: 100 0RF Rx Instructions: As directed Skyrizi 150 mg/mL pen injector 150 mg subcut .[id number] Patient Comments: PT STATES LAST DOSE WAS LESS THAN A MONTH AGO ( OF 06/07/24) Rx Instructions: LAST DOSE SOMETIME IN NOV lorazepam [Ativan] 0.5 mg tablet 0.5 mg PO BID PRN (Reason: anxiety) Qty: 10 0RF albuterol sulfate [Ventolin HFA] 90 mcg/actuation HFA aerosol inhaler 1 - 2 puff inhalation Q4H PRN PRN (Reason: Wheezing) Qty: 1 0RF Insulin Basal Pump (Pt's Own) [Pump, Basal] 1.8 unit subcut UD Qty: 0 0RF prochlorperazine maleate [Compazine] 10 mg tablet 10 mg PO TID PRN (Reason: nausea and vomiting) Qty: 30 0RF promethazine 25 mg tablet 25 mg PO Q6H PRN (Reason: nausea and vomiting) Qty: 60 0RF Rx Instructions: one or two every six hours for nausea Referrals / Follow Up: Care Physician,No Primary [Primary Care Provider] - Disposition Disposition (needs filled in before D/C Order can be placed): Home, Self Care
--- NOTE | 2024-08-03 09:17 | DS.PCM_ITS ---
Providers Date of Admission: 08/02/24 Date of Discharge: 08/03/24 Primary Care Physician: No Primary Care Phys Reason For Visit: DKA WITH NAUSEA VOMITING AND DIARRHEA Diagnosis Discharge Diagnosis (1) Diabetic ketoacidosis: Status: Acute Code(s): E11.10 - Type 2 diabetes mellitus with ketoacidosis without coma Qualifiers: Diabetes mellitus complication detail: without coma Diabetes mellitus type: type 1 Qualified Code(s): E10.10 - Type 1 diabetes mellitus with ketoacidosis without coma (2) Intractable nausea and vomiting: Status: Acute Code(s): R11.2 - Nausea with vomiting, unspecified (3) Type 1 diabetes: Status: Acute Code(s): E10.9 - Type 1 diabetes mellitus without complications Qualifiers: Diabetes mellitus complication status: without complication Qualified Code(s): E10.9 - Type 1 diabetes mellitus without complications (4) Diabetic gastroparesis: Status: Acute Code(s): E11.43 - 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 (poly)neuropathy; K31.84 - Gastroparesis (5) Watery diarrhea: Status: Acute Code(s): R19.7 - Diarrhea, unspecified (6) Lactic acidosis: Status: Acute Code(s): E87.20 - Acidosis, unspecified (7) Hypokalemia: Status: Acute Code(s): E87.6 - Hypokalemia (8) Hypomagnesemia: Status: Acute Code(s): E83.42 - Hypomagnesemia Plan 29-year-old female was admitted nausea, vomiting, loose stool and diarrhea and lab features consistent with DKA. Denies fever or chill 1. DKA: Glucose 253, a small positive acetone with history of DKA: Patient is still symptomatic with lethargy, nausea and admitted in the ICU. On insulin drip. Glucose is 95 but patient is still in DKA therefore IV fluid D5 half NS plus KCl to continue. Fluid 500 mL/h for 1 L and then to 50 mL/h for next 2 L. Continue BMP every 4 hourly while anion gap is normal. On low-dose insulin drip. Lactic acidosis from DKA 08/02: Anion gap 4 never high. Bicarb 17 but patient has positive stool and symptoms of DKA as mentioned above. Orders to change insulin drip to Lantus insulin and Accu-Chek before meals and at bedtime with Humalog sliding scale coverage and hypoglycemia protocol. 08/03: Patient uses insulin pump and she knows how to regulate the dose based on glucometer. She follows firepot operator and tender. Glucose is controlled between 116- 193. 2. Electrolyte abnormality due to DKA, diarrhea, nausea and vomiting: Patient has mild leukocytosis due DKA. Continue IV fluid replacement. Hypomagnesemia, magnesium 1.5.. Phosphorus ordered. Lipase less than 10. Serum negative Magnesium replacement ordered. Stool studies are ordered but I think her diarrhea is manifestation of DKA 08/03: Hypomagnesemia resolved. Mild hypophosphatemia, phosphorus 1.8. Prescription for Neutra-Phos given. 3. Bilateral renal angle pain with history of kidney stone: She spontaneously passed the kidney stone in the past. Denies dysuria/burning micturition. UA shows WBC 0-5, squamous epithelium 0-5 negative LE and nitrite therefore UTI unlikely. 08/03: Complain of burning pain therefore empirically 1 dose of IV ceftriaxone given. Kidney ultrasound does not show any stone or hydronephrosis. Small phlebolith in the bladder. UTI seems less likely. She said she has history of yeast infection in the urine therefore she does not take much antibiotic and I agree with that. Urine culture has been sent. Will wait for urine culture and if it comes positive we will send the prescription for antibiotic. 4. History of substance abuse and tobacco use-U tox positive of cannabinoids. Tobacco cessation advised 5 history of depression with psychotic features, panic disorder, borderline personality disorder and PTSD adding to the medical complexity of #1 - #8 - Restart home regimen when patient is able to tolerate oral intake. Give IV Ativan prn agitation for now. 6 Marfan syndrome; s/p aortic root repair - Noted. DVT/GI prophylaxis - Lovenox 40 mg sq daily plus SCD's. Discharge medication reconciliation done. Discharge follow-up instructions completed. Discharge process discussed with the patient and all questions were answered to patient's satisfaction. Follow with PCP in 1 to 2 weeks Total time spent, exact 35 minutes on discharge meds reconciliation, examination, coordination of care with nurses and ancillary staff, review of imaging and blood test and discussion with the patient on follow-up instructions. Clinical Impression(s) from Imaging Studies Renal Ultrasound 08/02/24 09:13 IMPRESSION: No abnormalities within the kidneys. There is a small calcification posterior to the left bladder which may represent a phlebolith. There are bilateral ureteral jets present. Electronically Signed: Arsen Kay MD at 16:24 EST , Medications at Discharge Home Medications insulin lispro 100 unit/mL subcutaneous solution (Humalog U-100 Insulin) See Rx Instructions .Route .COMPLEX 04/27/23 pen needle, diabetic 29 gauge x 1/2 (Ultra-Thin II Insulin Pen [place]) #100 ea 08/10/23 risankizumab-rzaa 150 mg/mL subcutaneous pen injector (Skyrizi) 150 mg subcut .[id number] PSORIASIS 02/07/24 Insulin Basal Pump (Pt's Own) [Pump, Basal] 1.8 unit subcut UD ##0 06/11/24 prochlorperazine maleate 10 mg tablet (Compazine) 10 mg PO TID PRN nausea and vomiting #30 tabs 06/11/24 promethazine 25 mg tablet 25 mg PO Q6H PRN nausea and vomiting #60 tabs 06/11/24 albuterol sulfate 90 mcg/actuation aerosol inhaler (Ventolin HFA) 1 - 2 puff inhalation Q4H PRN PRN Wheezing ##1 08/01/24 lorazepam 0.5 mg tablet (Ativan) 0.5 mg PO BID PRN anxiety #10 tabs 08/01/24 potassium, sodium phosphates 280 mg-160 mg-250 mg oral powder packet 1 packet PO TID 5 days #15 ea 08/03/24 Physical Exam Narrative Seen and examined. Her urine is dark-colored and sometimes feel burning pain in the urine. Yesterday she denied dysuria. She still complain of bilateral upper back pain. Renal ultrasound does not show any kidney stone. History of kidney stone in the past. Physical exam General: Alert, Oriented x3, Cooperative HEENT: Atraumatic, PERRLA, EOMI, Normocephalic Oral: Oral mucosa moist. No Gingival or Mucosal Lesions/ Ulcerations Neck: Supple, No JVD, Negative Carotid Bruits Chest wall/Lungs: Air entry diminished in bilateral lung bases. No crepitation/rhonchi Cardiovascular: Regular rate, Regular Rhythm, Normal S1, Normal S2, No M/G/R Abdomen: Bowel Sounds Present, Soft, Non Tender, Non-Distended : Dark-colored urine. Mild bilateral erector spinae/muscle tenderness. No suprapubic tenderness. Extremities: No edema, Capillary Refill Less than 3 Seconds Skin: No rashes, No breakdown Musculoskeletal: No Tenderness to Palpation of Joints or Extremities Neurological: Cranial nerves II-XII grossly intact, DTR 2+/4. No acute focal neurological deficit. Psych/Mental Status: Flat affect Weight / BMI Weight Weight: 175 lb 14.862 oz Body Mass Index (BMI) 26.0 ABG / Lab / Microbiology Data 08/02/24 00:30 08/03/24 02:55 Laboratory: Laboratory Results - last 24 hr 08/02/24 11:59: POC Glucose 147 H 08/02/24 13:10: POC Glucose 102 08/02/24 15:12: POC Glucose 163 H 08/02/24 15:52: Sodium 141, Potassium 3.8, Chloride 116 H, Carbon Dioxide 21.0, Anion Gap 5, BUN 8, Creatinine 0.68, Estim Creat Clear Calc 126.42, Est GFR (MDRD) Af Amer 130, Est GFR (MDRD) Non-Af 107, BUN/Creatinine Ratio 11.7, G lucose 116 H, Calcium 7.7 L 08/02/24 16:45: POC Glucose 90 08/02/24 19:03: POC Glucose 77 08/02/24 21:37: POC Glucose 246 H 08/02/24 23:57: POC Glucose 153 H 08/03/24 02:55: Sodium 140, Potassium 4.5, Chloride 114 H, Carbon Dioxide 22.0, Anion Gap 5, BUN 6 L, Creatinine 0.61, Estim Creat Clear Calc 140.93, Est GFR (MDRD) Af Amer 149, Est GFR (MDRD) Non-Af 123, BUN/Creatinine Ratio 9.9 L, G lucose 193 H, Calcium 7.9 L, Phosphorus 1.8 L, TSH 2.360 08/03/24 08:02: POC Glucose 256 H 08/03/24 11:21: POC Glucose 212 H Radiography Diagnostic Testing: Radiology Impression Renal Ultrasound 08/02/24 09:13 IMPRESSION: No abnormalities within the kidneys. There is a small calcification posterior to the left bladder which may represent a phlebolith. There are bilateral ureteral jets present. Electronically Signed: Arsen Kay MD at 16:24 EST , D/C Instructions Discharge Diet: 1800 Calorie Control Diet and - (Advised to drink a lot of water. About 2 L/day) Weight Bearing Status: Weight bearing as tolerated Call your doctor if you observe: Fever of 101 or Higher, Coldness, Increased Pain, Numbness or Tingling, Change in Color, Inability to urinate, Inability to have a bowel movement, Using more than 1 pad per hour, Shortness of breath, Dizziness, Fainting spells, Swelling in the ankles, Chest pain, Prolonged hiccupping, Increased palpitations (irregular heartbeat) and Calf discomfort DC O2, CPAP, BIPAP Needs Additional Home O2 Discharge instructions: No DC home with Oxygen: No When: IN 2 WEEKS Meaningful Use Info Meaningful Use Meaningful Use Diagnoses (Choose all that apply): None applicable Ischemic Stroke Statin Dosing Therapy Reference: STATIN DOSE THERAPY REFERENCE: * Patients > 75 years receive moderate or high dose statin therapy. * Patients 75 years or YOUNGER should receive HIGH intensity statin dose unless contraindicated. You will be required to document reason for non-treatment if statin daily dose does not meet guidelines. HIGH DOSE STATIN THERAPY DAILY Atorvastatin > than or = to 40 mg Rosuvastatin > than or = to 20 mg Amlodipine + Atorvastatin > than or = to 2.5/40 mg Ezetimibe + Simvastatin 10/80 mg Simvastatin 80mg Discharge Plan Admission Admit Date/Time: 08/02/24 01:48 Primary Reason for Your Visit: DKA Attending Provider: Estevan Davis Primary Care Provider: Care Physician,Nya Primary Consulting Providers: Horacio Duvall Instructions Additional Instructions / Restrictions: Advised to follow-up firepot operator and tender Discharge Orders/Prescriptions Prescriptions: New potassium, sodium phosphates 280-160-250 mg Powder In Packet 1 packet PO TID 5 Days Qty: 15 0RF Continued insulin lispro [Humalog U-100 Insulin] 100 unit/mL solution See Rx Instructions .ROUTE .COMPLEX Patient Comments: use IN THE INSULIN PUMP FOR A TOTAL DAILY DOSE OF 100 UNITS. 06/07/24- PUMP IS NOT CURRENTLY ATTACHED. PT NOT RECIEVING INSULIN. Rx Instructions: 100 U VIA PUMP DAILY; BASAL RATE - 1.8 UNITS/HOUR BOLUS: CARB RATIO- 1 UNIT /10 GRAMS OF CARBS CORRECTION- 1 UNIT FOR EVERY 30MG/DL BLOOD GLUCOSE OVER 120 (DME) pen needle, diabetic [Ultra-Thin II Ins Pen [place]] 29 gauge x 1/2 needle See Rx Instructions .Route Qty: 100 0RF Rx Instructions: As directed Skyrizi 150 mg/mL pen injector 150 mg subcut .[id number] Patient Comments: PT STATES LAST DOSE WAS LESS THAN A MONTH AGO ( OF 06/07/24) Rx Instructions: LAST DOSE SOMETIME IN NOV lorazepam [Ativan] 0.5 mg tablet 0.5 mg PO BID PRN (Reason: anxiety) Qty: 10 0RF albuterol sulfate [Ventolin HFA] 90 mcg/actuation HFA aerosol inhaler 1 - 2 puff inhalation Q4H PRN PRN (Reason: Wheezing) Qty: 1 0RF Insulin Basal Pump (Pt's Own) [Pump, Basal] 1.8 unit subcut UD Qty: 0 0RF prochlorperazine maleate [Compazine] 10 mg tablet 10 mg PO TID PRN (Reason: nausea and vomiting) Qty: 30 0RF promethazine 25 mg tablet 25 mg PO Q6H PRN (Reason: nausea and vomiting) Qty: 60 0RF Rx Instructions: one or two every six hours for nausea Referrals / Follow Up: Care Physician,No Primary [Primary Care Provider] - Disposition Disposition (needs filled in before D/C Order can be placed): Home, Self Care Charges/Coding Visit Charges Inpatient E&M: 98237 Disch Hosp >30min
[2024-08-03] MEDS: Na Biphos/Potassium Phosphate PACKET 1 PACKET PO ×2 (11:07→13:30)
[2024-08-03] MEDS: levoFLOXacin IV 750 MG/150 ML BAG 100 MG IV (11:07)
[2024-08-03 11:43] LABS: Bedside Glucose 212 mg/dL (74-106)
[2024-08-03] MEDS: proCHLORPERazine 10 MG/2 ML Vial IV (13:01)
[2024-08-03] MEDS: Ketorolac 15 MG/ML Vial IV ×2 (13:25)
--- NOTE | 2024-08-05 13:43 | CCN.REFER ---
DOES NOT QUALIFY FOR CCN DUE TO H/O PSYCH AND DRUG USE.
== END 2024-08-03 14:00 | disposition home or self-care (01) | DRG 638 ==
LOC: ED 02:12 → ICU 04:40
PROVIDERS: Admitting Provider Internal Medicine; Emergency Provider Emergency Medicine; Visit Provider Internal Medicine
DX: E10.10 Type 1 diabetes mellitus with ketoacidosis without coma (principal); Q87.40 Marfan syndrome, unspecified; F33.2 Major depressive disorder, recurrent severe without psychotic features; E10.43 Type 1 diabetes mellitus with diabetic autonomic (poly)neuropathy; F60.3 Borderline personality disorder; E87.6 Hypokalemia; E83.42 Hypomagnesemia; Z79.4 Long term (current) use of insulin; F17.210 Nicotine dependence, cigarettes, uncomplicated; F17.290 Nicotine dependence, other tobacco product, uncomplicated; F41.9 Anxiety disorder, unspecified; K31.84 Gastroparesis; R30.0 Dysuria; Z79.899 Other long term (current) drug therapy; Z96.41 Presence of insulin pump (external) (internal)
CPT/HCPCS: 71046; 76770; 80048; 80076; 80307; 81001; 82009; 82803; 82962; 83036; 83605; 83690; 83735; 84100; 84443; 84703; 85025; 87086; 87088; 94668; 97802; 99282; 99285; J7030; A4216

== ENCOUNTER 2024-09-02 10:14 | Emergency (ER) | payer MEDICARE, MEDICAID, SELFPAY ==
[2024-09-02 10:15] VITALS: BP 99/86; PULSE 83; RESP 18; TEMP 35.6; O2SAT 98; BMI 25.3
--- NOTE | 2024-09-02 10:22 | EDS_ITS ---
HPI History of Present Illness Chief Complaint: Nausea/Vomiting Detail of Chief Complaint: Nausea, vomiting diarrhea that started last evening Informant: patient Onset/Context/Timing Onset: Yesterday Context: Sudden Onset Timing: Continuous Quality: Nausea vomiting, dry heaves and diarrhea Location: GI Maximum Severity: Severe Worsened by: Patient does have history of gastroparesis due to diabetes Relieved by: Nothing Associated Symptoms Associated Symptoms: Thirst, dry mouth and lightheadedness Narrative Narrative: Patient is a 29-year-old woman. She has type 1 diabetes with history of gastroparesis who was seen for nausea and vomiting on August [address] Lul Singh. She was seen today before for anxiety. She was seen May 2024 for DKA. She has numerous visits for nausea vomiting due to diabetic gastroparesis. She is also had several visits for DKA. Patient presents because of nausea vomiting diarrhea that started last evening. She had pizza for dinner. She is on promethazine. She is allergic to Zofran. She denies fever, chills night sweats. She denies hematemesis or coffee-ground emesis. She denies blood or mucus in the diarrhea. History is limited presently because she is actively vomiting and having dry heaves. Will complete history once patient's vomiting is under control. Prior similar symptoms: Yes Recent Illness/Hospitalization: No PFSH [facility] Medical History Type 1 diabetes Metabolic acidosis Leukocytosis DKA, type 1 Intractable abdominal pain Intractable nausea and vomiting Panic disorder Major depressive disorder, recurrent severe without psychotic features Diabetic gastroparesis Substance abuse Kidney stones Kidney disease Smoker Intractable vomiting Type 1 diabetes Marfan syndrome PTSD (post-traumatic stress disorder) Borderline personality disorder Home Medications ?Medication ?Instructions ?Recorded ?Last Taken ?Type insulin lispro 100 unit/mL See Rx Instructions .Route .COMPLEX 04/27/23 06/06/24 History subcutaneous solution (Humalog U-100 Insulin) pen needle, diabetic 29 gauge x #100 ea 08/10/23 Unknown Rx 1/2 (Ultra-Thin II Insulin Pen [place]) risankizumab-rzaa 150 mg/mL 150 mg subcut .[id number] PSORIASIS 02/07/24 Unknown History subcutaneous pen injector (Skyrizi) Insulin Basal Pump (Pt's Own) 1.8 unit subcut UD ##0 06/11/24 Unknown Rx [Pump, Basal] prochlorperazine maleate 10 mg 10 mg PO TID PRN nausea and 06/11/24 Unknown Rx tablet (Compazine) vomiting #30 tabs promethazine 25 mg tablet 25 mg PO Q6H PRN nausea and 06/11/24 Unknown Rx vomiting #60 tabs albuterol sulfate 90 mcg/actuation 1 - 2 puff inhalation Q4H PRN PRN 08/01/24 Unknown Rx aerosol inhaler (Ventolin HFA) Wheezing ##1 lorazepam 0.5 mg tablet (Ativan) 0.5 mg PO BID PRN anxiety #10 tabs 08/01/24 Unknown Rx potassium, sodium phosphates 280 1 packet PO TID 5 days #15 ea 08/03/24 Unknown Rx mg-160 mg-250 mg oral powder packet Allergy/AdvReac Type Severity Reaction Status Date / Time adhesive tape Allergy Intermediate Rash Verified 09/02/24 10:15 cephalexin (From Keflex) Allergy Intermediate yeast Verified 09/02/24 10:15 infection morphine Allergy Intermediate Rash Verified 09/02/24 10:15 oxycodone (From Percocet) Allergy Intermediate Rash Verified 09/02/24 10:15 ondansetron AdvReac I BLACK Verified 09/02/24 10:15 OUT AND LOSE CONTROL OF MY BLADDER Surgical History History of loop recorder Hx of appendectomy Hx of eye surgery H/O aortic root repair Social History Smoking Status: Current some day smoker tobacco type: e-cigarettes substance use type: marijuana ROS ROS ED Constitutional Constitutional ED: Denies chills, fever(s), subjective or sweats Eyes Eyes: Denies blurry vision or change in vision ENT ENT ED: Denies ear pain, rhinorrhea or sore throat Cardiovascular Cardiovascular: Denies chest pain, orthopnea, palpitations or paroxysmal nocturnal dyspnea Respiratory/Chest Respiratory/Chest: Denies cough, dyspnea, dyspnea on exertion, orthopnea or paroxysmal nocturnal dyspnea Gastrointestinal Gastrointestinal: Reports diarrhea, nausea and vomiting; Denies abdominal pain or melena Genitourinary Genitourinary ED: Denies dysuria, hematuria or urinary frequency Musculoskeletal Musculoskeletal: Denies arthralgias or myalgias Integumentary Denies rash Neurologic Neurologic: Denies headache(s) Psychiatric Psychiatric: Reports anxiety Endocrine Endocrinology: Denies cold intolerance, heat intolerance, polydipsia or polyuria Hematologic/Lymphatic Hematologic/Lymphatic: Reports systems reviewed and no addt'l complaints, except as documented EXAM Physical Exam Const Vital Signs: 09/02/24 10:15 09/02/24 12:15 09/02/24 14:00 Temperature 96.1 F L Temperature Source Temporal Pulse Rate 83 98 95 Respiratory Rate 18 18 18 Blood Pressure 99/86 H 129/55 H 124/54 H Blood Pressure Mean 90 79 77 Pulse Ox 98 95 96 Oxygen Delivery Method Room Air Positive well nourished and well developed Constitutional Narrative: Patient is actively vomiting. She appears pale. She is not tachypneic and there is no ketotic odor to her breath. She does not appear well. General Appearance ED: well developed, NAD and pallor; Negative for cyanotic or diaphoretic HEENT Reports dry mucous membranes HEENT Narrative: Head is atraumatic no cephalic. Ears normal. Nares patent. Posterior pharynx is normal. Mouth ED: Yes dry mucous membranes Mouth: dry mucous membranes Eyes PERRL and EOMs intact bilaterally General Eye ED: Negative for pale conjunctiva or scleral icterus Neck no lymphadenopathy and no JVD Resp normal respiratory effort and clear to auscultation bilaterally Cardio regular rate, regular rhythm, S1 normal heart sound, S2 normal heart sound and no murmurs GI normal to inspection, nondistended, normoactive bowel sounds and non-distended; Negative for non-tender or hepatosplenomegaly Auscultation: hypoactive bowel sounds Palpation: tender other (Mild tenderness throughout the abdomen.) Back/Spine no CVA tenderness Extremity normal to inspection Neuro oriented x3 and CN's II-XII intact bilaterally Sensorium / Orientation: alert Psych mental status grossly normal Skin no rashes or lesions noted, no wounds and No skin turgor normal General Skin Exam: pallor MDM MDM MDM Narrative Medical decision making narrative: Patient with nausea vomiting diarrhea. This may represent viral illness. Doubt bacterial or food poisoning. With her having diarrhea this is not consistent with gastroparesis. Because she is diabetic electrolyte panel was obtained to assess glucose CO2 anion gap as well as renal function. UA was obtained to assess specific gravity and ketones. Since patient is hypotensive 1 L of normal saline was ordered. Because of her allergy to Zofran and reported no benefit from Reglan she was treated with IV Compazine. History & Record Review Additional record(s) reviewed:: Prior ED visit (Mentioned in the HPI narrative) and Prior labs Lab Data Attestation: I reviewed the patient's lab results. Lab results narrative: White count is elevated 16.5 thousand with mild shift. There is no bandemia. H&H and indices are normal. Labs: Laboratory Results - last 24 hr 09/02/24 09/02/24 10:32 10:37 WBC 16.5 H RBC 4.88 Hgb 14.1 Hct 42.7 MCV 87.5 MCH 28.9 MCHC 33.0 RDW Std Deviation 40.3 RDW Coeff of Joyce 12.6 Plt Count 199 MPV 12.5 H Immature Gran % (Auto) 1.000 H Neut % (Auto) 77.7 H Lymph % (Auto) 15.8 L [place] % (Auto) 4.6 Eos % (Auto) 0.4 Baso % (Auto) 0.5 Absolute Neuts (auto) 12.8 H Absolute Lymphs (auto) 2.60 Nucleated RBC % 0 Sodium 142 Potassium 3.0 L Chloride 112 H Carbon Dioxide 21.0 Anion Gap 10 BUN 14 Creatinine 0.86 Estim Creat Clear Calc 99.96 Est GFR (MDRD) Af Amer 99 Est GFR (MDRD) Non-Af 82 BUN/Creatinine Ratio 16.2 Glucose 129 H Calcium 9.2 Urine Color Yellow Urine Clarity Sl. Cloudy Urine pH 8.0 Ur Specific [place] 1.010 Urine Protein 100 H Urine Glucose (UA) Normal Urine Ketones 5 H Urine Occult Blood Negative Urine Nitrite Negative Urine Bilirubin Negative Urine Urobilinogen Normal Ur Leukocyte Esterase 25 H Urine RBC 0 SEEN Urine WBC 0-5 SEEN Ur Squamous Epith Cells 0-5 SEEN Urine Bacteria 2+ Urine Mucus RARE Urinalysis consistent with asymptomatic bacteriuria. Per literature there is no treatment. Treatment and Re-Evaluation :: I was informed by her nurse at 1043 that she needs something for pain. She is still vomiting in spite of the Compazine. In light of this the ED cyclic vomiting order set was initiated. Zofran was not given since she reports allergy. Comments:: Patient was reassessed at 13 teen 51. She is hypotensive. 1 L of normal saline was ordered. She is very groggy and difficult to determine if she feels comfortable to go home. Will reassess in 30 to 60 minutes. Vital Sign Attestation:: Patient did pass p.o. challenge. Will discharge to home. Discharge Plan Triage Chief Complaint: Nausea/Vomiting ED Provider: Rm Chirinos Dx/Rx/DC Orders Clinical Impression: Intractable nausea and vomiting, Acute dehydration, Diabetic gastroparesis, Orthostatic hypotension, Asymptomatic bacteriuria, Hyperglycemia due to type 1 diabetes mellitus Instructions: ED Vomiting (Adult) Prescriptions: No Action insulin lispro [Humalog U-100 Insulin] 100 unit/mL solution See Rx Instructions .ROUTE .COMPLEX Patient Comments: use IN THE INSULIN PUMP FOR A TOTAL DAILY DOSE OF 100 UNITS. 06/07/24- PUMP IS NOT CURRENTLY ATTACHED. PT NOT RECIEVING INSULIN. Rx Instructions: 100 U VIA PUMP DAILY; BASAL RATE - 1.8 UNITS/HOUR BOLUS: CARB RATIO- 1 UNIT /10 GRAMS OF CARBS CORRECTION- 1 UNIT FOR EVERY 30MG/DL BLOOD GLUCOSE OVER 120 (DME) pen needle, diabetic [Ultra-Thin II Ins Pen [place]] 29 gauge x 1/2 needle See Rx Instructions .Route Qty: 100 0RF Rx Instructions: As directed Skyrizi 150 mg/mL pen injector 150 mg subcut .[id number] Patient Comments: PT STATES LAST DOSE WAS LESS THAN A MONTH AGO ( OF 06/07/24) Rx Instructions: LAST DOSE SOMETIME IN NOV lorazepam [Ativan] 0.5 mg tablet 0.5 mg PO BID PRN (Reason: anxiety) Qty: 10 0RF albuterol sulfate [Ventolin HFA] 90 mcg/actuation HFA aerosol inhaler 1 - 2 puff inhalation Q4H PRN PRN (Reason: Wheezing) Qty: 1 0RF potassium, sodium phosphates 280-160-250 mg Powder In Packet 1 packet PO TID 5 Days Qty: 15 0RF Insulin Basal Pump (Pt's Own) [Pump, Basal] 1.8 unit subcut UD Qty: 0 0RF prochlorperazine maleate [Compazine] 10 mg tablet 10 mg PO TID PRN (Reason: nausea and vomiting) Qty: 30 0RF promethazine 25 mg tablet 25 mg PO Q6H PRN (Reason: nausea and vomiting) Qty: 60 0RF Rx Instructions: one or two every six hours for nausea Primary Care Provider: Care Physician,No Primary Referrals: Care Physician,No Primary [Primary Care Provider] - Activity Restrictions/Additional Instructions: Follow-up with your doctor. The name of your doctor/provider is on your insurance card. Print Language: [place] Disposition Disposition: Home, Self Care
[2024-09-02] MEDS: 0.9% Normal Saline (1000mL) 1,000 ML 1000 ML IV ×2 (10:26→14:31)
[2024-09-02] MEDS: proCHLORPERazine 10 MG/2 ML Vial 5 MG IV (10:26)
[2024-09-02 10:38] LABS: Absolute Neutrophil Count 12.8 X10^3/uL (2.0-7.7); Basophil# 0.08 X10^3/uL; Basophil% 0.5 % (0-1); Eosinophil# 0.07 X10^3/uL; Eosinophils% 0.4 % (0-5); Hematocrit 42.7 % (37-47); Hemoglobin 14.1 g/dL (12.0-15.0); Lymphocyte % 15.8 % (19-41); Mean Corpuscular Hgb 28.9 pg (27.0-32.0); Mean Corpuscular Volume 87.5 fL (81-99); Mean Platelet Vol. 12.5 fl (6.2-12.0); Monocyte# 0.76 X10^3/uL; Monocyte% 4.6 % (0-10); NRBC Flagged by Analyzer 0 % (0-5); Neutrophil # 12.78 X10^3/uL (2.7-7.7); Neutrophil % 77.7 % (47-70); Platelet Count 199 K/mm3 (150-450); RBC Distribution Width CV 12.6 % (11.6-14.6); RBC Distribution Width SD 40.3 fl (35.1-43.9); Red Blood Count 4.88 M/mm3 (4.2-5.4); White Blood Count 16.5 K/mm3 (4.4-11.0)
[2024-09-02 10:42] LABS: Red Blood Cells-Urine 0 SEEN /hpf (0-5)
[2024-09-02 10:46] LABS: Color, Urine Yellow (Yellow); Glucose, Dipstick Normal (Normal); Ketone-Dipstick 5 mg/dl (Negative); Leukocyte Esterase-Dipstick 25 /ul (Negative); Nitrite-Dipstick Negative (Negative); Occult Blood-Urine Negative /ul (Negative); Protein-Dipstick 100 mg/dl (Negative); Urine Bilirubin Dipstick Negative (Negative); Urine Clarity Sl. Cloudy (Clear); Urine Urobilinogen Normal (Normal)
[2024-09-02 10:51] LABS: Bacteria 2+ /hpf (None Seen); Mucous, Urine RARE /hpf (<or=2+); Squamous Epithelial Cells - UA 0-5 SEEN /hpf (5-10); White Blood Cells 0-5 SEEN /hpf (0-5)
[2024-09-02] MEDS: LORazepam 2 MG/ML Syringe 1 MG IV (10:51)
[2024-09-02 11:07] LABS: Anion Gap 10 (5-15); BUN 14 mg/dL (7-18); BUN/Creat Ratio 16.2 RATIO (10-20); Calcium,Total 9.2 mg/dL (8.5-10.1); Chloride 112 mmol/L (98-107); Creatinine, Serum 0.86 mg/dL (0.55-1.02); EST Glomerular Filtration Rate 82 mL/min (>60); Est Glom Filt Rate - Afr Amer 99 mL/min (>60); Estimated Creatinine Clearance 99.96 ml/min; Glucose 129 mg/dL (74-106); Sodium Level 142 mmol/L (136-145)
[2024-09-02] MEDS: Famotidine 200 MG/20 ML MDV 20 MG in 0.9% Normal Saline (Pres. free 8 ML 300 MG IV (11:19)
[2024-09-02] MEDS: DiphenhydrAMINE 25 MG, ChlorproMAZINE IM 25 MG in 0.9% Normal Saline (100mL Bag) 100 ML 203 MG IV (11:19)
[2024-09-02 12:15] VITALS: BP 129/55; PULSE 98; RESP 18; O2SAT 95
[2024-09-02 14:00] VITALS: BP 124/54; PULSE 95; RESP 18; O2SAT 96
== END 2024-09-02 14:54 | disposition home or self-care (01) ==
PROVIDERS: Emergency Provider Emergency Medicine; Visit Provider Emergency Medicine
DX: R11.2 Nausea with vomiting, unspecified (principal); Z79.4 Long term (current) use of insulin; E10.65 Type 1 diabetes mellitus with hyperglycemia; E86.0 Dehydration; I95.1 Orthostatic hypotension; R19.7 Diarrhea, unspecified; R82.71 Bacteriuria; Q87.40 Marfan syndrome, unspecified; F41.9 Anxiety disorder, unspecified; F17.290 Nicotine dependence, other tobacco product, uncomplicated; Z79.899 Other long term (current) drug therapy
CPT/HCPCS: 36591; 80048; 81001; 85025; 96361; 96365; 96366; 96367; 96375; 99285; A4216

== ENCOUNTER 2024-10-18 16:01 | Observation (INO) | payer MEDICARE, MEDICAID, SELFPAY ==
[2024-10-18 16:07] VITALS: BP 197/78; PULSE 109; RESP 16; TEMP 36.6; O2SAT 98; BMI 26.2
[2024-10-18 17:19] LABS: Bedside Glucose 62 mg/dL (74-106)
[2024-10-18 17:40] LABS: Bedside Glucose 100 mg/dL (74-106)
--- NOTE | 2024-10-18 18:22 | CT_ITS ---
PROCEDURE: ABDOMEN/PELVIS W IV CONT ONLY REASON FOR EXAM: 29-year-old female, left lower quadrant abdominal pain. TECHNIQUE: Abdomen and pelvis CT with intravenous contrast. No oral contrast. IV CONTRAST: Isovue-[id number] COMPARISON: CT abdomen pelvis 06/07/2024. FINDINGS: Lung bases: Prior median sternotomy. The heart is normal in size. Mild bibasilar atelectasis. Liver: The liver is normal in size with stable fatty infiltration of the falciform ligament. The major portal veins are patent. No biliary ductal dilation. Gallbladder: No radiopaque stones within the decompressed gallbladder. Spleen: Unremarkable. Pancreas: Mildly atrophic. Adrenals: Unremarkable. Kidneys: No hydronephrosis or nephrolithiasis. Bladder: Decompressed and unremarkable. Reproductive Organs: Unremarkable. Bowel: Moderate distention of the stomach, compatible with reported gastroparesis. The bowel loops are otherwise normal in caliber. No ascites or pneumoperitoneum. Prior appendectomy. Lymph nodes: No suspicious lymph node enlargement. Vasculature: Major vascular structures are unremarkable. Bones: No aggressive osseous lesions. CT/Abdomen/Pelvis W IV Cont ONLY IMPRESSION: NO ACUTE FINDINGS AT THE ABDOMEN OR PELVIS ON CONTRAST-ENHANCED CT. One or more dose reduction techniques were used (e.g., Automated exposure contr ol, adjustment of the mA and/or kV according to patient size, use of iterative reconstruction technique). Reading Location: [facility]
--- NOTE | 2024-10-18 18:22 | EKG12_ITS ---
Test Reason : DYSRHYTHMIA Blood Pressure : */* mmHG Vent. Rate : 69 BPM Atrial Rate : 69 BPM P-R Int : 132 ms QRS Dur : 80 ms QT Int : 384 ms P-R-T Axes : 8 72 49 degrees QTcB Int : 411 ms Normal sinus rhythm Normal ECG Confirmed by Alfonso Ho ([id number]), field map editor QUENTIN ESPAÑA ([id number]) on 10/21/2024 9:55:12 AM Referred By: Ramya Lombardo Confirmed By: Alfonso Ho
[2024-10-18] MEDS: Metoclopramide 10 MG/2 ML Vial IV (18:33)
[2024-10-18] MEDS: 0.9% Normal Saline (1000mL) 1,000 ML 999 ML IV (18:33)
[2024-10-18] MEDS: HYDROmorphone 1 MG/ML Syringe 0.5 MG IV (18:33)
[2024-10-18 18:37] VITALS: BP 120/76; PULSE 62; RESP 16; O2SAT 97
[2024-10-18 18:37] LABS: Absolute Lymphocyte Count 1.82 X10^3/uL (0.83-4.51); Basophil# 0.04 X10^3/uL; Basophil% 0.2 % (0-1); Eosinophil# 0.03 X10^3/uL; Eosinophils% 0.2 % (0-5); Hematocrit 38.8 % (37-47); Hemoglobin 12.9 g/dL (12.0-15.0); Lymphocyte # 1.82 X10^3/ul (0.83-4.51); Lymphocyte % 10.7 % (19-41); Mean Corp Hgb Conc 33.2 g/dL (32-36); Mean Corpuscular Hgb 29.3 pg (27.0-32.0); Mean Corpuscular Volume 88.2 fL (81-99); Mean Platelet Vol. 12.3 fl (6.2-12.0); Monocyte# 1.04 X10^3/uL; Monocyte% 6.1 % (0-10); NRBC Flagged by Analyzer 0 % (0-5); Neutrophil # 14.02 X10^3/uL (2.7-7.7); Neutrophil % 82.2 % (47-70); Platelet Count 166 K/mm3 (150-450); RBC Distribution Width CV 13.1 % (11.6-14.6); RBC Distribution Width SD 42.5 fl (35.1-43.9); White Blood Count 17.1 K/mm3 (4.4-11.0)
[2024-10-18 18:44] LABS: Blood Gas Specimen Type VEN; O2 Delivery Device Room Air; SITE Not entered; VBG BASE EXCESS 0 mmol/L (-1.0-3.5); VBG Bicarbonate 25 mmol/L (22-26); VBG PO2 32 mmHg (25-40); VBG SO2 59 % (50-70); VBG TCO2 26 mmol/L (23-33); VBG pCO2 41.6 mmHg (41-51); VBG pH 7.38 (7.32-7.42)
[2024-10-18 18:47] LABS: Internal QC Validated? YES +Cl - CLEAR BKGD; Pregnancy, Serum, hCG Quali. NEGATIVE Negative
[2024-10-18 18:52] LABS: ALB/GLOB Ratio 1.1 RATIO (0.9-2.4); AST(SGOT) 14 U/L (15-37); Alanine Aminotransfer ALT/SGPT 24 U/L (13-56); Albumin, Serum 3.7 g/dL (3.2-5.0); Alkaline Phosphatase 84 U/L (45-117); Anion Gap 5 (5-15); BUN 15 mg/dL (7-18); BUN/Creat Ratio 19.7 RATIO (10-20); Calcium,Total 9.4 mg/dL (8.5-10.1); Chloride 109 mmol/L (98-107); Creatinine, Serum 0.76 mg/dL (0.55-1.02); EST Glomerular Filtration Rate 95 mL/min (>60); Est Glom Filt Rate - Afr Amer 115 mL/min (>60); Estimated Creatinine Clearance 123.05 ml/min; Globulin 3.4 g/dL (2.2-4.2); Glucose 116 mg/dL (74-106); Lipase 18 U/L (73-393); Protein, Total 7.1 g/dL (6.4-8.2); Sodium Level 139 mmol/L (136-145)
--- NOTE | 2024-10-18 18:55 | EX.ED.DYSGE1 ---
HPI History of Present Illness Chief Complaint: Abd Pain Narrative Narrative: Chief complaint and HPI: 29-year-old female with past medical history of type 1 diabetes on insulin pump and gastroparesis presents for evaluation of left lower quadrant abdominal pain. Patient states pain has been ongoing for about a week. States it progressively worsened today. Patient states at baseline she has nausea and vomiting but states that this is actually improved from her baseline. She endorses decreased p.o. intake due to her baseline gastroparesis. She states that she often feels full. She does endorse 2 days of nonbloody diarrhea. Patient states that her sugars have been controlled. She states today she has been more hypoglycemic. She has a insulin pump with a basal rate of 1.8/h. She does 1 unit for 10 g of carbs and 1 unit for 30 over glucose level of 120. Patient denies any fever, chills, shortness of breath, chest pain, dysuria. She is in a same-sex relationship and states there is no chance of . Patient denies any sick contacts. She does have a history of DKA in the past. She states she has a history of urolithiasis years ago. Prior to arrival patient was hypoglycemic for EMS. She was given dextrose with improvement in her glucose. Review of systems: See HPI Medications: As listed on the chart Allergies: As listed on the chart PFSH: Per chart Vital signs: As listed on the chart. Reviewed. Physical exam: Gen: A&O x3, intermittently tearful secondary to pain Head: Normocephalic, atraumatic Eyes: No sclera icterus, conjunctiva clear, PERRL, EOMI ENT: Mildly dry mucous membranes Neck: Trachea midline, No JVD CV: RRR, no murmurs, no peripheral edema Resp: Lungs CTA BL, no w/r/c GI: Abd soft, non-distended, tender to palpation in the left lower quadrant, no rebound or rigidity : + CVA tenderness on the left Musc: Full ROM, no deformity Skin: Warm, dry Neuro: Alert, oriented, grossly intact, sensation intact Psych: Cooperative, appropriate mood and affect [facility] Medical History Type 1 diabetes Metabolic acidosis Leukocytosis DKA, type 1 Intractable abdominal pain Intractable nausea and vomiting Panic disorder Major depressive disorder, recurrent severe without psychotic features Diabetic gastroparesis Substance abuse Kidney stones Kidney disease Smoker Intractable vomiting Type 1 diabetes Marfan syndrome PTSD (post-traumatic stress disorder) Borderline personality disorder Home Medications ?Medication ?Instructions ?Recorded ?Last Taken ?Type insulin lispro 100 unit/mL See Rx Instructions .Route .COMPLEX 04/27/23 06/06/24 History subcutaneous solution (Humalog U-100 Insulin) pen needle, diabetic 29 gauge x #100 ea 08/10/23 Unknown Rx 1/2 (Ultra-Thin II Insulin Pen [place]) risankizumab-rzaa 150 mg/mL 150 mg subcut .[id number] PSORIASIS 02/07/24 Unknown History subcutaneous pen injector (Skyrizi) Insulin Basal Pump (Pt's Own) 1.8 unit subcut UD diabetes ##0 06/11/24 Unknown Rx [Pump, Basal] prochlorperazine maleate 10 mg 10 mg PO TID PRN nausea and 06/11/24 Unknown Rx tablet (Compazine) vomiting #30 tabs albuterol sulfate 90 mcg/actuation 1 - 2 puff inhalation Q4H PRN PRN 08/01/24 Unknown Rx aerosol inhaler (Ventolin HFA) Wheezing ##1 doxepin 6 mg tablet 6 mg PO QHS insomnia 10/18/24 Unknown History potassium, sodium phosphates 280 1 packet PO DAILY supplement 10/18/24 Unknown History mg-160 mg-250 mg oral powder packet promethazine 25 mg tablet 50 mg PO Q6H PRN nausea and 10/18/24 Unknown History vomiting quetiapine 50 mg tablet,extended 50 mg PO QHS mood 10/18/24 Unknown History release 24 hr Allergy/AdvReac Type Severity Reaction Status Date / Time adhesive tape Allergy Intermediate Rash Verified 10/18/24 16:09 cephalexin (From Keflex) Allergy Intermediate yeast Verified 10/18/24 16:09 infection morphine Allergy Intermediate Rash Verified 10/18/24 16:09 oxycodone (From Percocet) Allergy Intermediate Rash Verified 10/18/24 16:09 ondansetron AdvReac I BLACK Verified 10/18/24 16:09 OUT AND LOSE CONTROL OF MY BLADDER Surgical History History of loop recorder Hx of appendectomy Hx of eye surgery H/O aortic root repair Social History Smoking Status: Current some day smoker tobacco type: e-cigarettes substance use type: marijuana EXAM Physical Exam Const Vital Signs: 10/18/24 16:07 10/18/24 18:37 10/18/24 20:00 Temperature 98 F Temperature Source Oral Pulse Rate 109 H 62 65 Respiratory Rate 16 16 18 Blood Pressure 197/78 H 120/76 141/113 H Blood Pressure Mean 117 90 122 Pulse Ox 98 97 97 Oxygen Delivery Method Room Air Room Air Room Air MDM MDM MDM Narrative Medical decision making narrative: 29-year-old female with past medical history of type 1 diabetes on insulin pump and gastroparesis presents for evaluation of left lower quadrant abdominal pain. Differential diagnosis includes but is not limited to symptomatic gastroparesis, viral illness, electrolyte abnormality, YANDY, DKA, UTI, pyelonephritis, intra-abdominal pathology such as diverticulitis or colitis. NS bolus, Dilaudid, Reglan ordered for symptoms. Laboratory workup ordered including CT abdomen and pelvis. CBC shows a leukocytosis of 17.1. On chart review, patient always has a baseline leukocytosis. No anemia. VBG without acidosis. CMP without YANDY, significant electrolyte abnormality. No anion gap. No transaminitis. Lactic acid unremarkable. Lipase unremarkable. Serum negative. Acetone negative. CT abdomen pelvis without any acute intra-abdominal pathology. Patient has moderate distention of the stomach compatible with reported gastroparesis. UA positive for blood, leuk esterase, WBC, bacteria which is consistent with UTI. Urine culture sent. Rocephin ordered. Given patient's leukocytosis, UTI, and left CVA tenderness concern is for possible pyelonephritis. On reevaluation, patient is still endorsing pain. I updated the patient of all her results and my concern for pyelonephritis. Given patient's history of type 1 diabetes, decreased p.o. intake with hypoglycemia, and concern for pyelonephritis I do think patient warrant admission for observation with IV antibiotic. Patient agrees and does not feel comfortable discharging home. Patient was discussed with the hospitalist service who accepted admission. EKG: Interpreted by me/EM physician: EKG shows normal sinus rhythm without any acute ischemic changes. Heart rate 69. Impression: 1. UTI with concerns for left pyelonephritis 2. Type I diabetic 3. Intermittent hypoglycemia 4. Dehydration 5. History of gastroparesis Lab Data Labs: Laboratory Results - last 24 hr 10/18/24 10/18/24 10/18/24 17:02 17:21 18:20 WBC 17.1 H RBC 4.40 Hgb 12.9 Hct 38.8 MCV 88.2 MCH 29.3 MCHC 33.2 RDW Std Deviation 42.5 RDW Coeff of Joyce 13.1 Plt Count 166 MPV 12.3 H Immature Gran % (Auto) 0.600 Neut % (Auto) 82.2 H Lymph % (Auto) 10.7 L [place] % (Auto) 6.1 Eos % (Auto) 0.2 Baso % (Auto) 0.2 Absolute Neuts (auto) 14.0 H Absolute Lymphs (auto) 1.82 Nucleated RBC % 0 Sodium 139 Potassium 4.0 Chloride 109 H Carbon Dioxide 25.0 Anion Gap 5 BUN 15 Creatinine 0.76 Estim Creat Clear Calc 123.05 Est GFR (MDRD) Af Amer 115 Est GFR (MDRD) Non-Af 95 BUN/Creatinine Ratio 19.7 Glucose 116 H Lactic Acid Calcium 9.4 Phosphorus 3.3 Magnesium 1.8 Total Bilirubin 0.40 AST 14 L ALT 24 Alkaline Phosphatase 84 Total Protein 7.1 Albumin 3.7 Globulin 3.4 Albumin/Globulin Ratio 1.1 Lipase 18 L Procalcitonin 0.07 Serum , Qual NEGATIVE Urine Color Urine Clarity Urine pH Ur Specific [place] Urine Protein Urine Glucose (UA) Urine Ketones Urine Occult Blood Urine Nitrite Urine Bilirubin Urine Urobilinogen Ur Leukocyte Esterase Urine RBC Urine WBC Ur Squamous Epith Cells Urine Bacteria Urine Mucus Acetone Level NEGATIVE POC Glucose 62 L 100 10/18/24 10/18/24 18:45 19:00 WBC RBC Hgb Hct MCV MCH MCHC RDW Std Deviation RDW Coeff of Joyce Plt Count MPV Immature Gran % (Auto) Neut % (Auto) Lymph % (Auto) [place] % (Auto) Eos % (Auto) Baso % (Auto) Absolute Neuts (auto) Absolute Lymphs (auto) Nucleated RBC % Sodium Potassium Chloride Carbon Dioxide Anion Gap BUN Creatinine Estim Creat Clear Calc Est GFR (MDRD) Af Amer Est GFR (MDRD) Non-Af BUN/Creatinine Ratio Glucose Lactic Acid 1.4 Calcium Phosphorus Magnesium Total Bilirubin AST ALT Alkaline Phosphatase Total Protein Albumin Globulin Albumin/Globulin Ratio Lipase Procalcitonin Serum , Qual Urine Color Yellow Urine Clarity Clear Urine pH 6.0 Ur Specific [place] 1.020 Urine Protein 30 H Urine Glucose (UA) 50 H Urine Ketones Negative Urine Occult Blood 10 H Urine Nitrite Negative Urine Bilirubin Negative Urine Urobilinogen Normal Ur Leukocyte Esterase 100 H Urine RBC 5-10 SEEN Urine WBC 10-25 SEEN Ur Squamous Epith Cells 0-5 SEEN Urine Bacteria 1+ Urine Mucus 1+ Acetone Level POC Glucose ABG Data ABG results: ABG 10/18/24 18:42 Specimen Type ISABELLE Sample Site Not entered VBG pH 7.38 VBG pO2 32 VBG HCO3 25 VBG Total CO2 26 VBG O2 Sat (Calc) 59 VBG Base Excess 0 POC Mix VBG pCO2 Pt Tmp 41.6 O2 Delivery Device Room Air Radiography Diagnostic Testing: Clinical Impression(s) from Imaging Studies Abdomen/Pelvis CT 10/18/24 18:22 IMPRESSION: NO ACUTE FINDINGS AT THE ABDOMEN OR PELVIS ON CONTRAST-ENHANCED CT. One or more dose reduction techniques were used (e.g., Automated exposure control, adjustment of the mA and/or kV according to patient size, use of iterative reconstruction technique). Reading Location: [id number] Discharge Plan Disposition Disposition: Acute Care Hospital [facility] Discharge Date/Time: 10/18/24 21:04
[2024-10-18 19:09] LABS: Color, Urine Yellow (Yellow); Glucose, Dipstick 50 mg/dl (Normal); Ketone-Dipstick Negative (Negative); Leukocyte Esterase-Dipstick 100 /ul (Negative); Nitrite-Dipstick Negative (Negative); Occult Blood-Urine 10 /ul (Negative); Protein-Dipstick 30 mg/dl (Negative); Urine Bilirubin Dipstick Negative (Negative); Urine Clarity Clear (Clear); Urine Urobilinogen Normal (Normal)
[2024-10-18 19:18] LABS: Lactic Acid 1.4 mmol/L (0.4-1.9)
[2024-10-18 19:27] LABS: Bacteria 1+ /hpf (None Seen); Mucous, Urine 1+ /hpf (<or=2+); Red Blood Cells-Urine 5-10 SEEN /hpf (0-5); Squamous Epithelial Cells - UA 0-5 SEEN /hpf (5-10); White Blood Cells 10-25 SEEN /hpf (0-5)
[2024-10-18 20:00] VITALS: BP 141/113; PULSE 65; RESP 18; O2SAT 97
[2024-10-18] MEDS: Ceftriaxone 1 GM/50 ML BAG IV (20:01)
--- NOTE | 2024-10-18 20:23 | PCM.HP.STD ---
HPI - General General Date of Admission: 10/18/24 Date of Service: 10/18/24 Chief Complaint: LLQ abdominal pain/flank pain. HPI Narrative The patient is a 29 y/o F w/ PMHx: Diabetes mellitus type I with insulin pump with chronic diabetic gastroparesis, Anxiety and Depression/Borderline personality disorder/PTSD/Panic disorder, Chronic cannabis use, Aortic aneurysm s/p aortic root repair w/ Marfan syndrome, Nicotine Vaping use who presents to the [facility] ED on 10/18/24 with history of persistent left lower abdominal discomfort ongoing for approximately 1 week worsened on day of presentation reporting that she does have chronic nausea and occasional emesis with underlying history of gastroparesis as well as chart reported history of 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 Prior to arrival EMS checked her blood sugar and noted she was hypoglycemic given dextrose with improvement upon arrival. Workup in the ED included T98, heart rate 109, BP 197/70, respiratory rate 16, 98% on room air with most recent repeat vitals heart rate 68, BP 141/113, respiratory rate 18, 97% on room air, CBC with WC 17.1, human 12.9, platelet 166 with left shift, VBG unremarkable, CMP with chloride 109, glucose 116, hepatic profile unremarkable, lipase 18, negative testing, lactic acid 1.4, urinalysis with specific gravity 1.020, urine protein 30, glucose 50, negative ketone, negative nitrite, occult blood 10, leukocyte esterase 100 with urine RBCs 5-10, urine WBCs 10-25 with 1+ bacteria noted, negative acetone, CT abdomen and pelvis with IV contrast only with no acute intra-abdominal findings but noted moderate distention of the stomach compatible with reported gastroparesis history, urine culture pending per ED. In the ED patient ministered 1 L normal saline, Rocephin 1 g IV x 1, Reglan 10 mg IV x 1, Dilaudid 0.5 mg IV x 1. [facility] Medical History Type 1 diabetes Metabolic acidosis Leukocytosis DKA, type 1 Intractable abdominal pain Intractable nausea and vomiting Panic disorder Major depressive disorder, recurrent severe without psychotic features Diabetic gastroparesis Substance abuse Kidney stones Kidney disease Smoker Intractable vomiting Type 1 diabetes Marfan syndrome PTSD (post-traumatic stress disorder) Borderline personality disorder Home Medications ?Medication ?Instructions ?Recorded ?Last Taken ?Type insulin lispro 100 unit/mL See Rx Instructions .Route .COMPLEX 04/27/23 06/06/24 History subcutaneous solution (Humalog U-100 Insulin) pen needle, diabetic 29 gauge x #100 ea 08/10/23 Unknown Rx 1/2 (Ultra-Thin II Insulin Pen Childress) risankizumab-rzaa 150 mg/mL 150 mg subcut .[id number] PSORIASIS 02/07/24 Unknown History subcutaneous pen injector (Skyrizi) Insulin Basal Pump (Pt's Own) 1.8 unit subcut UD diabetes ##0 06/11/24 Unknown Rx [Pump, Basal] prochlorperazine maleate 10 mg 10 mg PO TID PRN nausea and 06/11/24 Unknown Rx tablet (Compazine) vomiting #30 tabs albuterol sulfate 90 mcg/actuation 1 - 2 puff inhalation Q4H PRN PRN 08/01/24 Unknown Rx aerosol inhaler (Ventolin HFA) Wheezing ##1 doxepin 6 mg tablet 6 mg PO QHS insomnia 10/18/24 Unknown History potassium, sodium phosphates 280 1 packet PO DAILY supplement 10/18/24 Unknown History mg-160 mg-250 mg oral powder packet promethazine 25 mg tablet 50 mg PO Q6H PRN nausea and 10/18/24 Unknown History vomiting quetiapine 50 mg tablet,extended 50 mg PO QHS mood 10/18/24 Unknown History release 24 hr Allergy/AdvReac Type Severity Reaction Status Date / Time adhesive tape Allergy Intermediate Rash Verified 10/18/24 16:09 cephalexin (From Keflex) Allergy Intermediate yeast Verified 10/18/24 16:09 infection morphine Allergy Intermediate Rash Verified 10/18/24 16:09 oxycodone (From Percocet) Allergy Intermediate Rash Verified 10/18/24 16:09 ondansetron AdvReac I BLACK Verified 10/18/24 16:09 OUT AND LOSE CONTROL OF MY BLADDER Family History (Updated 10/19/24 @ 02:[address] Ramya Lombardo MD) Mother Anxiety and depression Bipolar disorder PCOS (polycystic ovarian syndrome) Father Valvular heart disease Surgical History History of loop recorder Hx of appendectomy Hx of eye surgery H/O aortic root repair Social History (Updated 10/19/24 @ 02:[address] Ramya Lombardo MD) household members: spouse Electronic Cigarette Use: with nicotine alcohol intake: never substance use type: marijuana ROS ROS Narrative Admission Review of Systems: CONSTITUTIONAL: No weight loss, fever, chills, + weakness or fatigue. HEENT: Eyes: No visual loss, blurred vision, double vision or yellow sclerae. Ears, Nose, Throat: No hearing loss, sneezing, congestion, runny nose or sore throat. SKIN: No rash or itching, lesions, wounds. CARDIOVASCULAR: No chest pain, chest pressure or chest discomfort, palpitations, edema, orthopnea, syncopal events. RESPIRATORY: No shortness of breath, cough or sputum, wheezing, hemoptysis. GASTROINTESTINAL: + anorexia, nausea, vomiting, diarrhea, lower abdominal discomfort, flank discomfort. No melena, BRBPR. GENITOURINARY: No dysuria, frequency, urgency or retention. NEUROLOGICAL: No headache, dizziness, syncope, paralysis, ataxia, numbness or tingling in the extremities, focal weakness, change in bowel or bladder control, seizure. MUSCULOSKELETAL: + muscle, back pain, joint pain or stiffness. HEMATOLOGIC: No anemia, bleeding or bruising. LYMPHATICS: No enlarged nodes. No history of splenectomy. PSYCHIATRIC: History of Anxiety and Depression/Borderline personality disorder/PTSD/Panic disorder. ENDOCRINOLOGIC: No reports of sweating, cold or heat intolerance. No polyuria or polydipsia. ALLERGIES: No history of asthma, hives, eczema or rhinitis. Vital Signs Vital Signs Vital Signs: 10/18/24 16:07 10/18/24 18:37 10/18/24 20:00 Temperature 98 F Temperature Source Oral Pulse Rate 109 H 62 65 Respiratory Rate 16 16 18 Blood Pressure 197/78 H 120/76 141/113 H Blood Pressure Mean 117 90 122 Pulse Ox 98 97 97 Oxygen Delivery Method Room Air Room Air Room Air Weight Weight: 178 lb Body Mass Index (BMI) 26.2 Physical Exam Narrative Physical Examination: General: Awake, alert, oriented x 3 and cooperative, seated upright in the ED, fatigued and ill-appearing, notes ongoing persistent left flank discomfort and lower abdominal discomfort. Skin: Normal color, normal turgor, no icterus, no cyanosis. HEENT: AT/NC, EOMI, PERRLA, dry MM, no carotid bruits or JVD noted. Lungs: CTA bilaterally, moderate effort, mild decrease BL bases, no rales, ronchi or wheezing. Heart: Regular rate and rhythm; no gallop, rub audible. Abdomen: Soft, bilateral lower quadrant left greater than right discomfort with palpation but no rebound or guarding, no marked distention, distant BS, no HSM, notable discomfort to left flank palpation. Extremities: No cyanosis, clubbing, or edema. Neurological: Patient awake, alert, oriented as noted, cognitive function intact; pupils equally reactive to light and accommodation, cranial nerves grossly normal, moving all 4 extremities, no focal deficits, strength moderately to severely globally decreased secondary to acute presentation. Psychiatric: Affect appears flat, fatigued, ill-appearing, no acute evidence of depressive or anxiety feeling but does have underlying s. Results Lab / Micro Data 10/18/24 18:20 10/18/24 18:20 Labs: Laboratory Results - last 24 hr 10/18/24 17:02: POC Glucose 62 L 10/18/24 17:21: POC Glucose 100 10/18/24 18:20: WBC 17.1 H, RBC 4.40, Hgb 12.9, Hct 38.8, MCV 88.2, MCH 29.3, MCHC 33.2, RDW Std Deviation 42.5, RDW Coeff of Joyce 13.1, Plt Count 166, MPV 12.3 H, Immature Gran % (Auto) 0.600, Neut % (Auto) 82.2 H, Lymph % (Auto) 10.7 L, [place] % (Auto) 6.1, Eos % (Auto) 0.2, Baso % (Auto) 0.2, Absolute Neuts (auto) 14.0 H, Absolute Lymphs (auto) 1.82, Nucleated RBC % 0, Sodium 139, Potassium 4.0, Chloride 109 H, Carbon Dioxide 25.0, Anion Gap 5, BUN 15, Creatinine 0.76, Estim Creat Clear Calc 123.05, Est GFR (MDRD) Af Amer 115, Est GFR (MDRD) Non-Af 95, BUN/Creatinine Ratio 19.7, Glucose 116 H, Calcium 9.4, Total Bilirubin 0.40, AST 14 L, ALT 24, Alkaline Phosphatase 84, Total Protein 7.1, Albumin 3.7, Globulin 3.4, Albumin/Globulin Ratio 1.1, Lipase 18 L, Serum , Qual NEGATIVE, Acetone Level NEGATIVE 10/18/24 18:45: Lactic Acid 1.4 10/18/24 19:00: Urine Color Yellow, Urine Clarity Clear, Urine pH 6.0, Ur Specific [place] 1.020, Urine Protein 30 H, Urine Glucose (UA) 50 H, Urine Ketones Negative, Urine Occult Blood 10 H, Urine Nitrite Negative, Urine Bilirubin Negative, Urine Urobilinogen Normal, Ur Leukocyte Esterase 100 H, Urine RBC 5-10 SEEN, Urine WBC 10-25 SEEN, Ur Squamous Epith Cells 0-5 SEEN, Urine Bacteria 1+, Urine Mucus 1+ Micro: Microbiology 10/18/24 18:40 Mucosa - Nose SARS-CoV-2, Influenza & RSV (PCR) - Final ABG Data ABG results: ABG 10/18/24 18:42 Specimen Type ISABELLE Sample Site Not entered VBG pH 7.38 VBG pO2 32 VBG HCO3 25 VBG Total CO2 26 VBG O2 Sat (Calc) 59 VBG Base Excess 0 POC Mix VBG pCO2 Pt Tmp 41.6 O2 Delivery Device Room Air Imaging Radiology Impression Abdomen/Pelvis CT 10/18/24 18:22 IMPRESSION: NO ACUTE FINDINGS AT THE ABDOMEN OR PELVIS ON CONTRAST-ENHANCED CT. One or more dose reduction techniques were used (e.g., Automated exposure control, adjustment of the mA and/or kV according to patient size, use of iterative reconstruction technique). Reading Location: [facility] Assessment & Plan Assessment/Plan (1) UTI (urinary tract infection): PLAN: Plan The patient is a 29 y/o F w/ PMHx: Diabetes mellitus type I with insulin pump with chronic diabetic gastroparesis, Anxiety and Depression/Borderline personality disorder/PTSD/Panic disorder, Chronic cannabis use, Aortic aneurysm s/p aortic root repair w/ Marfan syndrome, Nicotine Vaping use who presents to the [facility] ED on 10/18/24 with history of persistent left lower abdominal discomfort ongoing for approximately 1 week worsened on day of presentation reporting that she does have chronic nausea and occasional emesis with underlying history of gastroparesis as well as chart reported history of 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 #1. Acute Complicated Urinary Tract Infection with associated intractable nausea and emesis complicated by underlying IDDM with chronic gastroparesis as noted #2: Will admit to [facility] upon ED evaluation remarkable, pending UCx, continue IVFs, monitor I/Os, continue IV Rocephin/Cipro w/ transition as able pending sensitivities and speciation. #2. Intractable nausea and emesis, possibly multifactorial, secondary to #1 and also #3: Given persistence will maintain on clear liquids until clinically improving and transition to ADA diet following, will maintain on IV PPI in the interim with antiemetics as needed. Will maintain on scheduled Reglan. #3. IDDM with chronic gastroparesis: Continue insulin pump with comparison between blood sugars with Accu-Cheks and machine and if consistent will continue with blood sugar checks per her machine and dosing as needed per her home insulin sliding scale, as noted maintaining on clears with advance diet as tolerated to ADA diet once clinically improving and no further nausea and emesis bouts. Will maintain on scheduled Reglan at this time. #4. Aortic aneurysm with history of Marfan syndrome: S/p aortic root repair, encourage continued follow-up with cardiology as previously arranged. #5. Anxiety and Depression/Borderline personality disorder/PTSD/Panic disorder: We will continue patient home doxepin and Seroquel regimen, encourage continued outpatient follow-up with primary care as previously arranged in counseling as previously arranged. #6. Nicotine vape user: Encouraged cessation, inpatient consultation per RT, NR if desired. #7. DVT prophylaxis: Lovenox. Charges/Coding Visit Charges Inpatient E&M: 51807 Init Hosp L3
[2024-10-18 20:48] LABS: Magnesium 1.8 mg/dL (1.6-2.6); Phosphorus 3.3 mg/dL (2.5-4.9)
[2024-10-18 20:59] LABS: Procalcitonin 0.07 ng/mL (0.00-0.09)
[2024-10-18 21:03] VITALS: BP 141/113; PULSE 65; RESP 18; TEMP 36.6; O2SAT 97
[2024-10-18 21:05] VITALS: BMI 25.1
[2024-10-18 21:06] VITALS: BP 128/71; PULSE 61; RESP 16; TEMP 36.6; O2SAT 99
[2024-10-18] MEDS: Pantoprazole Sodium 40 MG in 0.9% Normal Saline (100mL MB+) 100 ML 330 MG IV (21:34)
[2024-10-18] MEDS: QUEtiapine 25 MG Tablet PO (21:38)
[2024-10-18] MEDS: Metoclopramide 10 MG/2 ML Vial 5 MG IV (21:39)
[2024-10-18] MEDS: HYDROmorphone 0.5 MG/0.5 ML SYRINGE IV (21:50)
[2024-10-18] MEDS: MELATONIN 3 MG TABLET PO (21:50)
[2024-10-18 22:13] LABS: Bedside Glucose 85 mg/dL (74-106)
[2024-10-18] MEDS: 0.9% Normal Saline (1000mL) 1,000 ML 100 ML IV (22:33)
[2024-10-19] MEDS: [UNRECOGNIZED DRUG - OTHER] SC ×2 (00:37→20:45)
[2024-10-19 02:09] VITALS: BP 140/68; PULSE 72; RESP 16; TEMP 36.9; O2SAT 97
[2024-10-19] MEDS: HYDROmorphone 0.5 MG/0.5 ML SYRINGE IV ×4 (02:09→20:48)
[2024-10-19 02:36] LABS: Bedside Glucose 132 mg/dL (74-106)
[2024-10-19 06:00] VITALS: BMI 25.2
[2024-10-19] MEDS: Metoclopramide 10 MG/2 ML Vial 5 MG IV ×3 (06:44→20:44)
[2024-10-19] MEDS: Acetaminophen 325 MG Tablet 650 MG PO ×2 (06:46→12:40)
[2024-10-19] MEDS: HYDROcodone Bitartrate/Apap 5/325 Tablet PO ×3 (06:47→18:46)
[2024-10-19 06:58] LABS: Absolute Lymphocyte Count 3.09 X10^3/uL (0.83-4.51); Absolute Neutrophil Count 6.9 X10^3/uL (2.0-7.7); Basophil# 0.05 X10^3/uL; Basophil% 0.5 % (0-1); Eosinophils% 1.8 % (0-5); Hematocrit 37.6 % (37-47); Hemoglobin 12.5 g/dL (12.0-15.0); Lymphocyte # 3.09 X10^3/ul (0.83-4.51); Lymphocyte % 27.9 % (19-41); Mean Corp Hgb Conc 33.2 g/dL (32-36); Mean Corpuscular Hgb 29.3 pg (27.0-32.0); Mean Corpuscular Volume 88.1 fL (81-99); Monocyte# 0.75 X10^3/uL; Monocyte% 6.8 % (0-10); NRBC Flagged by Analyzer 0 % (0-5); Neutrophil % 62.2 % (47-70); Platelet Count 149 K/mm3 (150-450); RBC Distribution Width CV 13.2 % (11.6-14.6); RBC Distribution Width SD 42.4 fl (35.1-43.9); Red Blood Count 4.27 M/mm3 (4.2-5.4); White Blood Count 11.1 K/mm3 (4.4-11.0)
[2024-10-19 07:22] LABS: Bedside Glucose 52 mg/dL (74-106)
[2024-10-19] MEDS: 0.9% Normal Saline (1000mL) 1,000 ML 100 ML IV (07:59)
--- NOTE | 2024-10-19 08:04 | NURSING ---
on recheck of blood sugar at 0800, patient's sugar was 235. Patient said she would usually take 3.8 units of insulin if she was at home. She gave herself a bolus of 3 units instead as she isn't eating as much here at the hospital.
[2024-10-19 08:18] LABS: ALB/GLOB Ratio 0.9 RATIO (0.9-2.4); AST(SGOT) 13 U/L (15-37); Alanine Aminotransfer ALT/SGPT 21 U/L (13-56); Alkaline Phosphatase 67 U/L (45-117); Anion Gap 8 (5-15); BUN 8 mg/dL (7-18); BUN/Creat Ratio 14.4 RATIO (10-20); Calcium,Total 8.2 mg/dL (8.5-10.1); Chloride 112 mmol/L (98-107); Creatinine, Serum 0.55 mg/dL (0.55-1.02); EST Glomerular Filtration Rate 137 mL/min (>60); Est Glom Filt Rate - Afr Amer 165 mL/min (>60); Estimated Creatinine Clearance 156.31 ml/min; Globulin 3.2 g/dL (2.2-4.2); Glucose 49 mg/dL (74-106); Potassium 3.7 mmol/L (3.5-5.1); Protein, Total 6.2 g/dL (6.4-8.2); Sodium Level 140 mmol/L (136-145)
[2024-10-19 08:20] LABS: Bedside Glucose 235 mg/dL (74-106)
[2024-10-19 08:50] VITALS: BP 133/57; PULSE 73; RESP 16; TEMP 36.4; O2SAT 99
[2024-10-19] MEDS: Enoxaparin 40 MG/0.4 ML Syringe SC (09:23)
[2024-10-19] MEDS: QUEtiapine 25 MG Tablet PO ×2 (09:25→20:45)
[2024-10-19] MEDS: Na Biphos/Potassium Phosphate PACKET 1 PACKET PO (09:25)
[2024-10-19] MEDS: Pantoprazole Sodium 40 MG in 0.9% Normal Saline (100mL MB+) 100 ML 330 MG IV ×2 (09:28→20:43)
[2024-10-19 09:32] VITALS: O2SAT 94
[2024-10-19 11:58] LABS: Bedside Glucose 40 mg/dL (74-106)
[2024-10-19] MEDS: Dextrose 10%-Water 250 ML 999 ML IV ×2 (12:05→22:21)
[2024-10-19 12:14] LABS: Bedside Glucose 53 mg/dL (74-106)
[2024-10-19 12:28] LABS: Glucose 88 mg/dL (74-106)
[2024-10-19] MEDS: proMETHazine 25 MG/ML Syringe 12.5 MG IM ×2 (12:40→23:04)
--- NOTE | 2024-10-19 14:59 | CASEMGMT ---
STIVEN CM in to discuss GRIFFITH form with patient. RN CM explained GRIFFITH form, patient voiced understanding. Pt signed form and filed in chart. Pt provided with a copy of signed GRIFFITH form. Patient had no further questions or concerns at this time.
[2024-10-19 15:00] VITALS: RESP 16
[2024-10-19 15:09] VITALS: BP 135/59; PULSE 78; RESP 16; TEMP 36.7
--- NOTE | 2024-10-19 15:13 | CASEMGMT ---
RN CM into pt room, pt up ad narendra in room. Denies any questions, concerns or DC needs at this time.
--- NOTE | 2024-10-19 15:30 | PN_ITS ---
Subjective Subjective Patient seen and examined. She complained of nausea but had not had any vomiting. She denied any fever or chills. She has been managed for UTI. She did have hypoglycemia this morning with blood sugar going down to 40. She was given some orange juice and also given a dose of dextrose. Review of systems is otherwise negative. Objective Data Objective Data Vital Signs: Vital Signs Temp Pulse Resp BP Pulse Ox O2 Del Method 98.4 F 72 16 140/68 H 94 Room Air 10/19/24 02:09 10/19/24 02:09 10/19/24 02:09 10/19/24 02:09 10/19/24 09:32 10/19/24 09:32 Oxygen Delivery Method Room Air Weight: 170 lb 3.15 oz Body Mass Index (BMI) 25.2 Intake & Output: Intake and Output for Last 24 Hours 10/17/24 10/18/24 10/19/24 23:59 23:59 23:59 Intake Total 1160 / 1460 Balance 1160 / 1460 Lab / Micro Data 10/19/24 06:49 10/19/24 12:06 Labs: Laboratory Results - last 24 hr 10/18/24 17:02: POC Glucose 62 L 10/18/24 17:21: POC Glucose 100 10/18/24 18:20: WBC 17.1 H, RBC 4.40, Hgb 12.9, Hct 38.8, MCV 88.2, MCH 29.3, MCHC 33.2, RDW Std Deviation 42.5, RDW Coeff of Joyce 13.1, Plt Count 166, MPV 12.3 H, Immature Gran % (Auto) 0.600, Neut % (Auto) 82.2 H, Lymph % (Auto) 10.7 L, [place] % (Auto) 6.1, Eos % (Auto) 0.2, Baso % (Auto) 0.2, Absolute Neuts (auto) 14.0 H, Absolute Lymphs (auto) 1.82, Nucleated RBC % 0, Sodium 139, Potassium 4.0, Chloride 109 H, Carbon Dioxide 25.0, Anion Gap 5, BUN 15, Creatinine 0.76, Estim Creat Clear Calc 123.05, Est GFR (MDRD) Af Amer 115, Est GFR (MDRD) Non-Af 95, BUN/Creatinine Ratio 19.7, Glucose 116 H, Calcium 9.4, Phosphorus 3.3, Magnesium 1.8, Total Bilirubin 0.40, AST 14 L, ALT 24, Alkaline Phosphatase 84, Total Protein 7.1, Albumin 3.7, Globulin 3.4, Albumin/Globulin Ratio 1.1, Lipase 18 L, Procalcitonin 0.07, Serum , Qual NEGATIVE, Acetone Level NEGATIVE 10/18/24 18:45: Lactic Acid 1.4 10/18/24 19:00: Urine Color Yellow, Urine Clarity Clear, Urine pH 6.0, Ur Specific [place] 1.020, Urine Protein 30 H, Urine Glucose (UA) 50 H, Urine Ketones Negative, Urine Occult Blood 10 H, Urine Nitrite Negative, Urine Bilirubin Negative, Urine Urobilinogen Normal, Ur Leukocyte Esterase 100 H, Urine RBC 5-10 SEEN, Urine WBC 10-25 SEEN, Ur Squamous Epith Cells 0-5 SEEN, Urine Bacteria 1+, Urine Mucus 1+ 10/18/24 21:53: POC Glucose 85 10/19/24 02:16: POC Glucose 132 H 10/19/24 06:40: POC Glucose 52 L 10/19/24 06:49: WBC 11.1 H, RBC 4.27, Hgb 12.5, Hct 37.6, MCV 88.1, MCH 29.3, MCHC 33.2, RDW Std Deviation 42.4, RDW Coeff of Joyce 13.2, Plt Count 149 L, MPV 12.0, Immature Gran % (Auto) 0.800, Neut % (Auto) 62.2, Lymph % (Auto) 27.9, [place] % (Auto) 6.8, Eos % (Auto) 1.8, Baso % (Auto) 0.5, Absolute Neuts (auto) 6.9, Absolute Lymphs (auto) 3.09, Nucleated RBC % 0, Sodium 140, Potassium 3.7, Chloride 112 H, Carbon Dioxide 21.0, Anion Gap 8, BUN 8, Creatinine 0.55, Estim Creat Clear Calc 156.31, Est GFR (MDRD) Af Amer 165, Est GFR (MDRD) Non-Af 137, BUN/Creatinine Ratio 14.4, Glucose 49 L, Calcium 8.2 L, Total Bilirubin 0.40, A ST 13 L, ALT 21, Alkaline Phosphatase 67, Total Protein 6.2 L, Albumin 3.0 L, Globulin 3.2, Albumin/Globulin Ratio 0.9 10/19/24 07:56: POC Glucose 235 H 10/19/24 11:35: POC Glucose 40 L* 10/19/24 11:52: POC Glucose 53 L 10/19/24 12:06: Glucose 88 Micro: Microbiology 10/18/24 19:00 Urine, Clean Catch Urine Culture - Preliminary Culture exhibits no growth. 10/18/24 18:40 Mucosa - Nose SARS-CoV-2, Influenza & RSV (PCR) - Final ABG Data ABG results: ABG 10/18/24 18:42 Specimen Type ISABELLE Sample Site Not entered VBG pH 7.38 VBG pO2 32 VBG HCO3 25 VBG Total CO2 26 VBG O2 Sat (Calc) 59 VBG Base Excess 0 POC Mix VBG pCO2 Pt Tmp 41.6 O2 Delivery Device Room Air Radiography Diagnostic Testing: Radiology Impression Abdomen/Pelvis CT 10/18/24 18:22 IMPRESSION: NO ACUTE FINDINGS AT THE ABDOMEN OR PELVIS ON CONTRAST-ENHANCED CT. One or more dose reduction techniques were used (e.g., Automated exposure control, adjustment of the mA and/or kV according to patient size, use of iterative reconstruction technique). Reading Location: [facility] Physical Exam Const alert, oriented x3 and no apparent distress General Appearance: cooperative and well developed HEENT normocephalic, head/scalp atraumatic and moist oral mucous membranes Eyes PERRL and EOMs intact bilaterally Neck no lymphadenopathy and supple Lymph Lymphatic: no lymphadenopathy noted and no lymphedema noted Resp normal respiratory effort, normal air movement and clear to auscultation bilaterally Cardio regular rate, regular rhythm, S1 normal heart sound, S2 normal heart sound and no murmurs GI normal to inspection, nondistended, normoactive bowel sounds, soft to palpation, non-tender and non-distended GI Narrative: Left costophrenic angle tenderness. Extremity normal capillary refill, no clubbing, cyanosis or edema and no calf tenderness General Extremity: no tenderness to palpation of joints or extremities Neuro CN's II-XII intact bilaterally, no focal motor deficits and no sensory deficits noted Motor Exam: strength 5/5 throughout and general weakness Psych thought process normal and cooperative Appearance: appropriate Assessment & Plan Assessment/Plan (1) UTI (urinary tract infection): PLAN: Plan #Acute UTI * Patient admitted with complaint of left flank pain and urinary symptoms. Currently on IV ceftriaxone and ciprofloxacin * Urine cultures pending. Still complains of left flank pain so concerning for acute pyelonephritis though CT of the abdomen and pelvis did not show any evidence of this. * P.o. Tylenol and p.o. oxycodone as well as IV morphine as needed for pain. #Intractable nausea and vomiting * She does have underlying diabetes mellitus with gastroparesis and also uses cannabis so cycle vomiting syndrome may be contributing. * On IV Reglan but says it is not working. IM Phenergan added on. * Counseled to quit cannabis use #Insulin-dependent diabetes mellitus with gastroparesis * Was hypoglycemic this morning. She was on clear liquid diet and insulin pump. Functioning. Patient therefore switched to an 1800-calorie cardiac diet. * Hypoglycemia resolved after she was giving some dextrose and D10 ampule. * Insulin sliding scale. Accu-Cheks ACHS. * #History of aortic aneurysm in the setting of Marfan syndrome: S/p aortic root repair. Follow-up with cardiology on outpatient basis. #Anxiety and depression: On doxepin #PTSD with panic disorder and borderline personality disorder: On doxepin and Seroquel Due to prophylaxis: Lovenox Charges/Coding Visit Charges Inpatient E&M: 13434 Subs Hosp L2
[2024-10-19 15:32] LABS: Bedside Glucose 156 mg/dL (74-106)
[2024-10-19 20:30] VITALS: BP 129/77; PULSE 64; RESP 16; TEMP 36.4; O2SAT 99
[2024-10-19 22:18] LABS: Bedside Glucose 64 mg/dL (74-106)
[2024-10-19 22:21] LABS: Bedside Glucose 35 mg/dL (74-106)
[2024-10-19 22:41] LABS: Bedside Glucose 85 mg/dL (74-106)
[2024-10-19] MEDS: Ceftriaxone 1 GM/50 ML BAG IV (22:55)
[2024-10-19 23:09] LABS: Glucose 231 mg/dL (74-106)
[2024-10-19 23:18] LABS: Bedside Glucose 246 mg/dL (74-106)
[2024-10-20 00:08] VITALS: BP 139/94; PULSE 60; RESP 16; TEMP 36.6; O2SAT 97
[2024-10-20] MEDS: HYDROmorphone 0.5 MG/0.5 ML SYRINGE IV ×6 (00:12→22:24)
[2024-10-20 01:48] VITALS: BMI 25.9
[2024-10-20 04:38] VITALS: BP 140/73; PULSE 54; RESP 16; TEMP 36.7; O2SAT 98
[2024-10-20] MEDS: HYDROcodone Bitartrate/Apap 5/325 Tablet PO ×3 (04:42→16:47)
[2024-10-20] MEDS: Acetaminophen 325 MG Tablet 650 MG PO (04:43)
[2024-10-20] MEDS: Metoclopramide 10 MG/2 ML Vial 5 MG IV ×3 (04:44→22:25)
[2024-10-20] MEDS: 0.9% Saline Lock 10 ML Syringe IV ×3 (04:44→18:26)
[2024-10-20 05:12] LABS: Bedside Glucose 303 mg/dL (74-106)
[2024-10-20] MEDS: proMETHazine 25 MG/ML Syringe 12.5 MG IM ×2 (06:05→20:17)
[2024-10-20 06:52] LABS: Absolute Lymphocyte Count 2.82 X10^3/uL (0.83-4.51); Absolute Neutrophil Count 6.3 X10^3/uL (2.0-7.7); Basophil# 0.04 X10^3/uL; Basophil% 0.4 % (0-1); Eosinophil# 0.31 X10^3/uL; Eosinophils% 3.1 % (0-5); Hematocrit 40.2 % (37-47); Lymphocyte # 2.82 X10^3/ul (0.83-4.51); Lymphocyte % 27.9 % (19-41); Mean Corp Hgb Conc 32.3 g/dL (32-36); Mean Corpuscular Hgb 28.6 pg (27.0-32.0); Mean Corpuscular Volume 88.5 fL (81-99); Mean Platelet Vol. 12.5 fl (6.2-12.0); Monocyte# 0.56 X10^3/uL; Monocyte% 5.5 % (0-10); NRBC Flagged by Analyzer 0 % (0-5); Neutrophil # 6.32 X10^3/uL (2.7-7.7); Neutrophil % 62.4 % (47-70); Platelet Count 158 K/mm3 (150-450); RBC Distribution Width SD 42.4 fl (35.1-43.9); Red Blood Count 4.54 M/mm3 (4.2-5.4); White Blood Count 10.1 K/mm3 (4.4-11.0)
[2024-10-20 07:01] LABS: Bedside Glucose 182 mg/dL (74-106)
[2024-10-20 07:32] LABS: Anion Gap 8 (5-15); BUN 8 mg/dL (7-18); BUN/Creat Ratio 13.2 RATIO (10-20); Calcium,Total 8.8 mg/dL (8.5-10.1); Chloride 104 mmol/L (98-107); Creatinine, Serum 0.61 mg/dL (0.55-1.02); EST Glomerular Filtration Rate 123 mL/min (>60); Est Glom Filt Rate - Afr Amer 149 mL/min (>60); Estimated Creatinine Clearance 140.93 ml/min; Glucose 222 mg/dL (74-106); Potassium 4.2 mmol/L (3.5-5.1); Sodium Level 134 mmol/L (136-145)
[2024-10-20 08:17] LABS: Bedside Glucose 90 mg/dL (74-106)
[2024-10-20 09:00] VITALS: O2SAT 96
[2024-10-20 10:00] VITALS: BP 132/67; PULSE 84; RESP 18; TEMP 36.6; O2SAT 98
[2024-10-20] MEDS: Enoxaparin 40 MG/0.4 ML Syringe SC (10:01)
[2024-10-20] MEDS: Na Biphos/Potassium Phosphate PACKET 1 PACKET PO (10:03)
[2024-10-20] MEDS: QUEtiapine 25 MG Tablet PO ×2 (10:03→22:29)
[2024-10-20] MEDS: Pantoprazole Sodium 40 MG in 0.9% Normal Saline (100mL MB+) 100 ML 330 MG IV ×2 (10:03→22:24)
--- NOTE | 2024-10-20 12:39 | PN_ITS ---
Subjective Subjective Patient seen and examined. She complains of her blood sugar still running low. She also complains of nausea and vomiting and says she was having burning with urination and is wondering if is due to the IV antibiotic she is getting. Review of symptoms otherwise negative. She has otherwise remained hemodynamically stable. Objective Data Objective Data Vital Signs: Vital Signs Temp Pulse Resp BP Pulse Ox O2 Del Method 98 F 84 18 132/67 H 98 Room Air 10/20/24 10:00 10/20/24 10:00 10/20/24 10:00 10/20/24 10:00 10/20/24 10:00 10/20/24 10:00 Oxygen Delivery Method Room Air Weight: 175 lb 0.752 oz Body Mass Index (BMI) 25.9 Intake & Output: Intake and Output for Last 24 Hours 10/18/24 10/19/24 10/20/24 23:59 23:59 23:59 Intake Total 1160 / 1460 3413.33 / 3913.33 1610 / 1610 Output Total 2 / 2 Balance 1160 / 1460 3411.33 / 3911.33 1610 / 1610 Lab / Micro Data 10/20/24 05:45 10/20/24 05:45 Labs: Laboratory Results - last 24 hr 10/19/24 15:13: POC Glucose 156 H 10/19/24 20:28: POC Glucose 64 L 10/19/24 22:04: POC Glucose 35 L* 10/19/24 22:17: POC Glucose 85 10/19/24 22:43: Glucose 231 H 10/19/24 22:57: POC Glucose 246 H 10/20/24 04:47: POC Glucose 303 H 10/20/24 05:45: WBC 10.1, RBC 4.54, Hgb 13.0, Hct 40.2, MCV 88.5, MCH 28.6, MCHC 32.3, RDW Std Deviation 42.4, RDW Coeff of Joyce 13.0, Plt Count 158, MPV 12.5 H, Immature Gran % (Auto) 0.700, Neut % (Auto) 62.4, Lymph % (Auto) 27.9, Bremer % (Auto) 5.5, Eos % (Auto) 3.1, Baso % (Auto) 0.4, Absolute Neuts (auto) 6.3, Absolute Lymphs (auto) 2.82, Nucleated RBC % 0, Sodium 134 L, Potassium 4.2, Chloride 104, Carbon Dioxide 22.0, Anion Gap 8, BUN 8, Creatinine 0.61, Estim Creat Clear Calc 140.93, Est GFR (MDRD) Af Amer 149, Est GFR (MDRD) Non-Af 123, BUN/Creatinine Ratio 13.2, Glucose 222 H, Calcium 8.8 10/20/24 06:07: POC Glucose 182 H 10/20/24 07:58: POC Glucose 90 Micro: Microbiology 10/18/24 19:00 Urine, Clean Catch Urine Culture - Final Mixed Gram Positive Organisms 10/18/24 18:40 Mucosa - Nose SARS-CoV-2, Influenza & RSV (PCR) - Final Physical Exam Const alert, oriented x3 and no apparent distress General Appearance: cooperative and well developed HEENT normocephalic, head/scalp atraumatic and moist oral mucous membranes Eyes PERRL and EOMs intact bilaterally Neck no lymphadenopathy and supple Lymph Lymphatic: no lymphadenopathy noted and no lymphedema noted Resp normal respiratory effort, normal air movement and clear to auscultation bilaterally Cardio regular rate, regular rhythm, S1 normal heart sound, S2 normal heart sound and no murmurs GI normal to inspection, nondistended, normoactive bowel sounds, soft to palpation, non-tender and non-distended GI Narrative: Left costophrenic angle tenderness has resolved Extremity normal capillary refill, no clubbing, cyanosis or edema and no calf tenderness General Extremity: no tenderness to palpation of joints or extremities Skin Skin Narrative: has access port in situ Neuro CN's II-XII intact bilaterally, no focal motor deficits and no sensory deficits noted Motor Exam: strength 5/5 throughout and general weakness Psych thought process normal and cooperative Appearance: appropriate Assessment & Plan Assessment/Plan (1) UTI (urinary tract infection): PLAN: Plan #Acute UTI * Patient admitted with complaint of left flank pain and urinary symptoms. Currently on IV ceftriaxone and ciprofloxacin * Urine cultures growing mixed gram positive organisms * P.o. Tylenol and p.o. oxycodone as well as IV morphine as needed for pain. #Intractable nausea and vomiting * She does have underlying diabetes mellitus with gastroparesis and also uses cannabis so cycle vomiting syndrome may be contributing. * on IV reglan and IM phenergan * Counseled to quit cannabis use #Insulin-dependent diabetes mellitus with gastroparesis * was hypoglycemic again this morning at 49. * on 1800 calorie diet. * on insulin pump at 1.8 units /hr, giving a total of 42 units over 24 hours * will cut down to 1.55 units/hr, for a total of 37.2 units over 24 hours. * monitor glucose levels closely * Insulin sliding scale. Accu-Cheks ACHS. * #History of aortic aneurysm in the setting of Marfan syndrome: S/p aortic root repair. Follow-up with cardiology on outpatient basis. #Anxiety and depression: On doxepin #PTSD with panic disorder and borderline personality disorder: On doxepin and Seroquel DVT to prophylaxis: Lovenox For likely dc tomorrow Charges/Coding Visit Charges Inpatient E&M: 77838 Subs Hosp L2
[2024-10-20 13:13] LABS: Bedside Glucose 200 mg/dL (74-106)
[2024-10-20 16:00] VITALS: BP 117/68; PULSE 60; RESP 18; TEMP 36.7; O2SAT 97
[2024-10-20 17:25] LABS: Bedside Glucose 441 mg/dL (74-106)
[2024-10-20 18:32] LABS: Bedside Glucose 337 mg/dL (74-106)
--- NOTE | 2024-10-20 18:43 | NURSING ---
1700 Dr Jefferson texted about blood sugar 441, patient covered with 10 units- patient own insulin pump. Patient insulin pump with no more insulin, Dr rasmussen. new orders placed see MAR. Parveen Hoffman RN
--- NOTE | 2024-10-20 18:47 | NURSING ---
1730 New insulin orders given per Dr Jefferson, patient aware Parveen Hoffman RN
--- NOTE | 2024-10-20 18:49 | NURSING ---
[address] Jefferson -blood sugar 337-inquiring about insulin coverage. patient requested foley. Parveen Hoffman RN
--- NOTE | 2024-10-20 18:50 | NURSING ---
1842 Dr Jefferson responded to text- ok for insulin coverage-follow sliding scale per order and to place thomas. Parveen Hoffman RN
[2024-10-20] MEDS: Insulin Lispro 100 UNIT/ML INSULN.PEN SC (19:07)
[2024-10-20 22:19] VITALS: BP 108/62; PULSE 73; RESP 16; TEMP 37.2; O2SAT 98
[2024-10-20 22:49] LABS: Bedside Glucose 94 mg/dL (74-106)
[2024-10-20] MEDS: Ceftriaxone 1 GM/50 ML BAG IV (23:26)
[2024-10-21] MEDS: Acetaminophen 325 MG Tablet 650 MG PO (01:34)
[2024-10-21] MEDS: HYDROcodone Bitartrate/Apap 5/325 Tablet PO ×2 (01:34→08:16)
[2024-10-21] MEDS: proMETHazine 25 MG/ML Syringe 12.5 MG IM (01:55)
[2024-10-21] MEDS: HYDROmorphone 0.5 MG/0.5 ML SYRINGE IV ×3 (03:22→13:35)
[2024-10-21] MEDS: 0.9% Saline Lock 10 ML Syringe IV ×3 (03:23→13:35)
[2024-10-21 03:41] VITALS: BMI 25.7
[2024-10-21 04:06] LABS: Bedside Glucose 481 mg/dL (74-106)
--- NOTE | 2024-10-21 04:15 | PCM.HOSP.N ---
Hospitalist Note BS elevated, noted to have run out of her pump insulin and was transitioned to low dose long-acting and ISS. Will give 10 u ISS and will continue with her long acting with repeat check in 1 hour.
[2024-10-21] MEDS: Insulin Glargine-YFGN 100 UNIT/ML Pen 10 UNIT SC ×2 (04:19→08:15)
[2024-10-21] MEDS: proCHLORPERazine 10 MG/2 ML Vial 5 MG IV (04:29)
[2024-10-21] MEDS: Insulin Lispro 100 UNIT/ML INSULN.PEN 10 UNIT SC (04:30)
[2024-10-21 04:54] LABS: Absolute Lymphocyte Count 2.01 X10^3/uL (0.83-4.51); Absolute Neutrophil Count 13.3 X10^3/uL (2.0-7.7); Basophil# 0.09 X10^3/uL; Basophil% 0.5 % (0-1); Eosinophils% 1.8 % (0-5); Hematocrit 44.3 % (37-47); Hemoglobin 14.3 g/dL (12.0-15.0); Lymphocyte # 2.01 X10^3/ul (0.83-4.51); Lymphocyte % 12.2 % (19-41); Mean Corp Hgb Conc 32.3 g/dL (32-36); Mean Corpuscular Hgb 28.8 pg (27.0-32.0); Mean Corpuscular Volume 89.1 fL (81-99); Mean Platelet Vol. 12.6 fl (6.2-12.0); Monocyte# 0.71 X10^3/uL; Monocyte% 4.3 % (0-10); NRBC Flagged by Analyzer 0 % (0-5); Neutrophil # 13.29 X10^3/uL (2.7-7.7); Neutrophil % 80.4 % (47-70); Platelet Count 192 K/mm3 (150-450); RBC Distribution Width CV 12.9 % (11.6-14.6); RBC Distribution Width SD 41.7 fl (35.1-43.9); Red Blood Count 4.97 M/mm3 (4.2-5.4); White Blood Count 16.5 K/mm3 (4.4-11.0)
[2024-10-21] MEDS: Metoclopramide 10 MG/2 ML Vial 5 MG IV (05:03)
[2024-10-21 05:07] VITALS: BP 112/52; PULSE 106; RESP 16; TEMP 36.6; O2SAT 95
[2024-10-21 05:08] LABS: Anion Gap 15 (5-15); BUN 15 mg/dL (7-18); BUN/Creat Ratio 17.1 RATIO (10-20); Calcium,Total 9.4 mg/dL (8.5-10.1); Chloride 97 mmol/L (98-107); Creatinine, Serum 0.88 mg/dL (0.55-1.02); EST Glomerular Filtration Rate 80 mL/min (>60); Est Glom Filt Rate - Afr Amer 97 mL/min (>60); Estimated Creatinine Clearance 97.69 ml/min; Glucose 546 mg/dL (74-106); Potassium 5.3 mmol/L (3.5-5.1); Sodium Level 128 mmol/L (136-145)
[2024-10-21 05:45] LABS: Bedside Glucose 408 mg/dL (74-106)
[2024-10-21] MEDS: 0.9% Normal Saline (1000mL) 1,000 ML 999 ML IV (05:51)
[2024-10-21] MEDS: Insulin Lispro 100 UNIT/ML INSULN.PEN 8 UNIT SC (05:52)
[2024-10-21 07:54] LABS: Bedside Glucose 187 mg/dL (74-106)
--- NOTE | 2024-10-21 07:57 | NURSING ---
Pt very upset and frustrated with sugars being elevated. patient concerned that she will go into DKA and frustrated that the doctor the day before did not order long acting insulin until this morning instead of last night. Patient made the comment that If i get DKA, [facility]'m [facility]. Pt crying and visibly distressed. Pt also stated Look me in the eye. I want that doctor in here right now. I want to talk to that doctor right now. This RN explained that the doctor on [facility] was not here during the day and wasn't involved in that situation. This RN did her best to make the patient feel understood by saying I understand this is frustrating but we are going to address this issue with the insulin added. We will get this figured out. Emotional support provided for the patient. This pt kept the doctor informed (see physician notification) and tried to comfort the patient in the sense that we were doing what we could and that I understood that it was frustrating. Eventually patient calmed down and was able to sleep.
[2024-10-21] MEDS: Enoxaparin 40 MG/0.4 ML Syringe SC (08:17)
[2024-10-21] MEDS: QUEtiapine 25 MG Tablet PO (08:17)
[2024-10-21 08:22] VITALS: BP 111/69; PULSE 82; RESP 18; TEMP 36.5; O2SAT 98
[2024-10-21 08:26] VITALS: PULSE 82; RESP 18; O2SAT 98
[2024-10-21] MEDS: Pantoprazole Sodium 40 MG in 0.9% Normal Saline (100mL MB+) 100 ML 330 MG IV (10:13)
[2024-10-21 11:26] LABS: Bedside Glucose 296 mg/dL (74-106)
[2024-10-21] MEDS: Insulin Lispro 100 UNIT/ML INSULN.PEN SC (11:46)
--- NOTE | 2024-10-21 12:12 | DCINST_ITS ---
Discharge Instructions Diet Discharge Diet: 2200 Calorie Control Diet DC O2, CPAP, BIPAP needs Home O2 Discharge instructions: No Dressing / Incision Discharge Activity: Return to Normal Activity Weight Bearing Status: Full weight bearing Follow Up Care Test Results: Test results from this visit will be discussed in further detail at your follow- up appointment, if applicable. Discharge Plan Admission Admit Date/Time: 10/18/24 20:23 Primary Reason for Your Visit: acute cystitis, abdominal pain Attending Provider: John Knapp Primary Care Provider: Care Physician,No Primary Consulting Providers: Rmaya Lombardo; Vita Jefferson Discharge Orders/Prescriptions Prescriptions: New phenazopyridine [Pyridium] 200 mg tablet 200 mg PO TID Qty: 15 0RF nitrofurantoin monohyd/m-cryst [Macrobid] 100 mg capsule 100 mg PO Q12H 7 Days Qty: 14 0RF Rx Instructions: must administer with a meal/food fluconazole [Diflucan] 100 mg tablet 100 mg PO DAILY Qty: 7 0RF Continued insulin lispro [Humalog U-100 Insulin] 100 unit/mL solution See Rx Instructions .ROUTE .COMPLEX Patient Comments: use IN THE INSULIN PUMP FOR A TOTAL DAILY DOSE OF 100 UNITS. 06/07/24- PUMP IS NOT CURRENTLY ATTACHED. PT NOT RECIEVING INSULIN. Rx Instructions: 100 U VIA PUMP DAILY; BASAL RATE - 1.8 UNITS/HOUR BOLUS: CARB RATIO- 1 UNIT /10 GRAMS OF CARBS CORRECTION- 1 UNIT FOR EVERY 30MG/DL BLOOD GLUCOSE OVER 120 (DME) pen needle, diabetic [Ultra-Thin II Ins Pen [place]] 29 gauge x 1/2 needle See Rx Instructions .Route Qty: 100 0RF Rx Instructions: As directed Skyrizi 150 mg/mL pen injector 150 mg subcut .[id number] Patient Comments: PT STATES LAST DOSE WAS LESS THAN A MONTH AGO ( OF 06/07/24) Rx Instructions: LAST DOSE SOMETIME IN NOV albuterol sulfate [Ventolin HFA] 90 mcg/actuation HFA aerosol inhaler 1 - 2 puff inhalation Q4H PRN PRN (Reason: Wheezing) Qty: 1 0RF Insulin Basal Pump (Pt's Own) [Pump, Basal] 1.8 unit subcut UD Qty: 0 0RF prochlorperazine maleate [Compazine] 10 mg tablet 10 mg PO TID PRN (Reason: nausea and vomiting) Qty: 30 0RF promethazine 25 mg tablet 50 mg PO Q6H PRN (Reason: nausea and vomiting) Rx Instructions: one or two every six hours for nausea potassium, sodium phosphates 280-160-250 mg Powder In Packet 1 packet PO DAILY quetiapine 50 mg tablet extended release 24 hr 50 mg PO QHS doxepin 6 mg tablet 6 mg PO QHS Referrals / Follow Up: [facility] [Provider Group] - Within 2 Weeks Care Physician,No Primary [Primary Care Provider] - Disposition Disposition (needs filled in before D/C Order can be placed): Home, Self Care
--- NOTE | 2024-10-21 12:19 | PCM.DC.SUM ---
Providers Date of Admission: 10/18/24 Date of Discharge: 10/21/24 Primary Care Physician: No Primary Care Phys Reason For Visit: UTI Diagnosis Discharge Diagnosis (1) UTI (urinary tract infection): Status: Acute Code(s): N39.0 - Urinary tract infection, site not specified (2) Abdominal pain: Status: Inactive Code(s): R10.9 - Unspecified abdominal pain Plan 1. Acute cystitis #2 intractable nausea and vomiting etiology unclear #3 abdominal pain-etiology unclear Medications at Discharge Home Medications insulin lispro 100 unit/mL subcutaneous solution (Humalog U-100 Insulin) See Rx Instructions .Route .COMPLEX 04/27/23 pen needle, diabetic 29 gauge x 1/2 (Ultra-Thin II Insulin Pen [place]) #100 ea 08/10/23 risankizumab-rzaa 150 mg/mL subcutaneous pen injector (Skyrizi) 150 mg subcut .[id number] PSORIASIS 02/07/24 Insulin Basal Pump (Pt's Own) [Pump, Basal] 1.8 unit subcut UD diabetes ##0 06/11/24 prochlorperazine maleate 10 mg tablet (Compazine) 10 mg PO TID PRN nausea and vomiting #30 tabs 06/11/24 albuterol sulfate 90 mcg/actuation aerosol inhaler (Ventolin HFA) 1 - 2 puff inhalation Q4H PRN PRN Wheezing ##1 08/01/24 doxepin 6 mg tablet 6 mg PO QHS insomnia 10/18/24 potassium, sodium phosphates 280 mg-160 mg-250 mg oral powder packet 1 packet PO DAILY supplement 10/18/24 promethazine 25 mg tablet 50 mg PO Q6H PRN nausea and vomiting 10/18/24 quetiapine 50 mg tablet,extended release 24 hr 50 mg PO QHS mood 10/18/24 fluconazole 100 mg tablet (Diflucan) 100 mg PO DAILY #7 tabs 10/21/24 hydrocodone-acetaminophen 5-325mg 5mg-325mg 1 tab PO Q6H PRN pain 5 days #14 tabs 10/21/24 nitrofurantoin monohydrate/macrocrystals 100 mg capsule (Macrobid) 100 mg PO Q12H 7 days #14 caps 10/21/24 phenazopyridine 200 mg tablet (Pyridium) 200 mg PO TID #15 tabs 10/21/24 Hospital Course Operations None Procedures None Summary of Care Provided Minutes Spent on Discharge: 31 Hospital Course: This 29-year-old white female was seen in the emergency room at [facility] with complaints of left lower quadrant abdominal pain x 1 week patient states that she usually has nausea and vomiting but this was actually improved from her baseline. Workup in the emergency room showed a white blood cell count 17.1, chemistry profile was unremarkable. UA showed 5-10 RBCs, 10-25 WBCs and +[address] of the abdomen and pelvis showed no acute findings. Patient was placed in observation status on MedSurg 3, she was placed on IV antibiotics, but she continued to have intermittent abdominal pain during her hospitalization. Urine culture grew out mixed gram-positive organisms. On 10/21/2024 patient was seen and examined: On examination she appeared in good health and spirits, she does not appear to be in any distress. Vital signs as documented. Skin warm and dry and without overt rashes. Neck without JVD, thyroid appears normal, trachea is midline, neck is supple. Lungs clear, normal air movement was noted. Heart exam notable for regular rhythm, normal sounds and absence of murmurs, rubs or gallops. Abdomen unremarkable and without evidence of organomegaly, masses, or abdominal aortic enlargement, bowel sounds are present in all 4 quadrants, no abdominal tenderness was noted. Extremities nonedematous, no cyanosis was noted, no clubbing was noted. Neuro: Cranial nerves II through XII are grossly intact, no focal motor deficits were noted, sensation to light touch and pinprick is intact, motor exam 5/5 throughout. Psych: Patient is alert and oriented x3, she does not appear anxious or depressed, she does not appear agitated. Patient was discharged home in stable condition on 10/21/2024, patient was instructed to follow-up with [facility] Weight / BMI Weight Weight: 79 kg Body Mass Index (BMI) 25.7 ABG / Lab / Microbiology Data 10/21/24 04:39 10/21/24 04:39 Laboratory: Laboratory Results - last 24 hr 10/20/24 12:01: POC Glucose 200 H 10/20/24 16:49: POC Glucose 441 H 10/20/24 18:08: POC Glucose 337 H 10/20/24 22:30: POC Glucose 94 10/21/24 03:44: POC Glucose 481 H* 10/21/24 04:39: WBC 16.5 H, RBC 4.97, Hgb 14.3, Hct 44.3, MCV 89.1, MCH 28.8, MCHC 32.3, RDW Std Deviation 41.7, RDW Coeff of Joyce 12.9, Plt Count 192, MPV 12.6 H, Immature Gran % (Auto) 0.800, Neut % (Auto) 80.4 H, Lymph % (Auto) 12.2 L, Gregory % (Auto) 4.3, Eos % (Auto) 1.8, Baso % (Auto) 0.5, Absolute Neuts (auto) 13.3 H, Absolute Lymphs (auto) 2.01, Nucleated RBC % 0, Sodium 128 L, Potassium 5.3 H, Chloride 97 L, Carbon Dioxide 16.0 L, Anion Gap 15, BUN 15, Creatinine 0.88, Estim Creat Clear Calc 97.69, Est GFR (MDRD) Af Amer 97, Est GFR (MDRD) Non-Af 80, BUN/Creatinine Ratio 17.1, Glucose 546 H*, Calcium 9.4 10/21/24 05:27: POC Glucose 408 H 10/21/24 07:35: POC Glucose 187 H 10/21/24 10:48: POC Glucose 296 H Microbiology: Microbiology 10/18/24 19:00 Urine, Clean Catch Urine Culture - Final Mixed Gram Positive Organisms 10/18/24 18:40 Mucosa - Nose SARS-CoV-2, Influenza & RSV (PCR) - Final D/C Instructions Discharge Diet: 2200 Calorie Control Diet Weight Bearing Status: Full weight bearing DC O2, CPAP, BIPAP Needs Home O2 Discharge instructions: No Meaningful Use Info Meaningful Use Meaningful Use Diagnoses (Choose all that apply): None applicable Ischemic Stroke Statin Dosing Therapy Reference: STATIN DOSE THERAPY REFERENCE: * Patients > 75 years receive moderate or high dose statin therapy. * Patients 75 years or YOUNGER should receive HIGH intensity statin dose unless contraindicated. You will be required to document reason for non-treatment if statin daily dose does not meet guidelines. HIGH DOSE STATIN THERAPY DAILY Atorvastatin > than or = to 40 mg Rosuvastatin > than or = to 20 mg Amlodipine + Atorvastatin > than or = to 2.5/40 mg Ezetimibe + Simvastatin 10/80 mg Simvastatin 80mg Discharge Plan Admission Admit Date/Time: 10/18/24 20:23 Primary Reason for Your Visit: acute cystitis, abdominal pain Attending Provider: John Knapp Primary Care Provider: Care Physician,No Primary Consulting Providers: Ramya Lombardo; Vita Jefferson Discharge Orders/Prescriptions Prescriptions: New phenazopyridine [Pyridium] 200 mg tablet 200 mg PO TID Qty: 15 0RF nitrofurantoin monohyd/m-cryst [Macrobid] 100 mg capsule 100 mg PO Q12H 7 Days Qty: 14 0RF Rx Instructions: must administer with a meal/food fluconazole [Diflucan] 100 mg tablet 100 mg PO DAILY Qty: 7 0RF hydrocodone-acetaminophen 5-325 mg tablet 1 tab PO Q6H PRN (Reason: pain) 5 Days Qty: 14 0RF Continued insulin lispro [Humalog U-100 Insulin] 100 unit/mL solution See Rx Instructions .ROUTE .COMPLEX Patient Comments: use IN THE INSULIN PUMP FOR A TOTAL DAILY DOSE OF 100 UNITS. 06/07/24- PUMP IS NOT CURRENTLY ATTACHED. PT NOT RECIEVING INSULIN. Rx Instructions: 100 U VIA PUMP DAILY; BASAL RATE - 1.8 UNITS/HOUR BOLUS: CARB RATIO- 1 UNIT /10 GRAMS OF CARBS CORRECTION- 1 UNIT FOR EVERY 30MG/DL BLOOD GLUCOSE OVER 120 (DME) pen needle, diabetic [Ultra-Thin II Ins Pen [place]] 29 gauge x 1/2 needle See Rx Instructions .Route Qty: 100 0RF Rx Instructions: As directed Skyrizi 150 mg/mL pen injector 150 mg subcut .[id number] Patient Comments: PT STATES LAST DOSE WAS LESS THAN A MONTH AGO ( OF 06/07/24) Rx Instructions: LAST DOSE SOMETIME IN NOV albuterol sulfate [Ventolin HFA] 90 mcg/actuation HFA aerosol inhaler 1 - 2 puff inhalation Q4H PRN PRN (Reason: Wheezing) Qty: 1 0RF Insulin Basal Pump (Pt's Own) [Pump, Basal] 1.8 unit subcut UD Qty: 0 0RF prochlorperazine maleate [Compazine] 10 mg tablet 10 mg PO TID PRN (Reason: nausea and vomiting) Qty: 30 0RF promethazine 25 mg tablet 50 mg PO Q6H PRN (Reason: nausea and vomiting) Rx Instructions: one or two every six hours for nausea potassium, sodium phosphates 280-160-250 mg Powder In Packet 1 packet PO DAILY quetiapine 50 mg tablet extended release 24 hr 50 mg PO QHS doxepin 6 mg tablet 6 mg PO QHS Referrals / Follow Up: [facility] [Provider Group] - Within 2 Weeks Care Physician,No Primary [Primary Care Provider] - Disposition Disposition (needs filled in before D/C Order can be placed): Home, Self Care Charges/Coding Visit Charges Inpatient E&M: 35940 Disch Hosp >30min
[2024-10-21 12:53] VITALS: BP 116/69; PULSE 89; RESP 18; TEMP 36.8; O2SAT 96
--- NOTE | 2024-10-21 14:15 | PHA.DC_ITS ---
Pharmacy [place] Med Reconciliation Pharmacy Service has performed discharge medication reconciliation for this patient. Medication education papers prepared, patient discharged when counseling was attempted. The patient's discharge medication list was reviewed for discrepancies and discrepancies were resolved. Medications at Discharge Home Medications insulin lispro 100 unit/mL subcutaneous solution (Humalog U-100 Insulin) See Rx Instructions .Route .COMPLEX 04/27/23 pen needle, diabetic 29 gauge x 1/2 (Ultra-Thin II Insulin Pen [place]) #100 ea 08/10/23 risankizumab-rzaa 150 mg/mL subcutaneous pen injector (Skyrizi) 150 mg subcut .[id number] PSORIASIS 02/07/24 Insulin Basal Pump (Pt's Own) [Pump, Basal] 1.8 unit subcut UD diabetes ##0 06/11/24 prochlorperazine maleate 10 mg tablet (Compazine) 10 mg PO TID PRN nausea and vomiting #30 tabs 06/11/24 albuterol sulfate 90 mcg/actuation aerosol inhaler (Ventolin HFA) 1 - 2 puff inhalation Q4H PRN PRN Wheezing ##1 08/01/24 doxepin 6 mg tablet 6 mg PO QHS insomnia 10/18/24 potassium, sodium phosphates 280 mg-160 mg-250 mg oral powder packet 1 packet PO DAILY supplement 10/18/24 promethazine 25 mg tablet 50 mg PO Q6H PRN nausea and vomiting 10/18/24 quetiapine 50 mg tablet,extended release 24 hr 50 mg PO QHS mood 10/18/24 fluconazole 100 mg tablet (Diflucan) 100 mg PO DAILY #7 tabs 10/21/24 hydrocodone-acetaminophen 5-325mg 5mg-325mg 1 tab PO Q6H PRN pain 5 days #14 tabs 10/21/24 nitrofurantoin monohydrate/macrocrystals 100 mg capsule (Macrobid) 100 mg PO Q12H 7 days #14 caps 10/21/24 phenazopyridine 200 mg tablet (Pyridium) 200 mg PO TID #15 tabs 10/21/24
== END 2024-10-21 14:00 | disposition home or self-care (01) ==
LOC: ED 18:28 → MS3 20:38
PROVIDERS: Student in an Organized Health Care Education/Training Program; Admitting Provider Family Medicine; Emergency Provider Surgery; Referring Provider Family Medicine; Visit Provider Internal Medicine
DX: N30.00 Acute cystitis without hematuria (principal); F60.3 Borderline personality disorder; F33.2 Major depressive disorder, recurrent severe without psychotic features; E10.649 Type 1 diabetes mellitus with hypoglycemia without coma; E10.43 Type 1 diabetes mellitus with diabetic autonomic (poly)neuropathy; Z79.4 Long term (current) use of insulin; F17.290 Nicotine dependence, other tobacco product, uncomplicated; F41.0 Panic disorder [episodic paroxysmal anxiety]; Z96.41 Presence of insulin pump (external) (internal); Z79.899 Other long term (current) drug therapy; K31.84 Gastroparesis; Q87.40 Marfan syndrome, unspecified; E86.0 Dehydration; F43.10 Post-traumatic stress disorder, unspecified
CPT/HCPCS: 36415; 51702; 74177; 80048; 80053; 81001; 82009; 82803; 82947; 82962; 83605; 83690; 83735; 84100; 84145; 84703; 85025; 87086; 87088; 87631; 93005; 94668; 96361; 96365; 96366; 96367; 96372; 96375; 96376; 99221; 99285; 99406; A4216; G0378

== ENCOUNTER 2024-11-03 19:54 | Emergency (ER) | payer MEDICARE, MEDICAID, SELFPAY ==
[2024-11-03 19:54] VITALS: BP 149/93; PULSE 125; RESP 12; TEMP 36.8; O2SAT 98
[2024-11-03 19:58] VITALS: BMI 25.3
--- NOTE | 2024-11-03 20:41 | CT_ITS ---
PROCEDURE: CT abdomen pelvis with IV contrast REASON FOR EXAM: Pain TECHNIQUE: Multiple contiguous axial images through the abdomen and pelvis were obtained after the administration of intravenous contrast. Two-dimensional coronal and sagittal reformatted images were reconstructed. Low-dose imaging technique was utilized. COMPARISON: 10/18/2024 FINDINGS: Motion degraded exam. Lung bases are clear. Liver, spleen, pancreas and adrenal glands are intact. Gallbladder is satisfactory. No significant biliary ductal dilation. Kidneys enhance symmetrically. No suspicious renal mass, calculi or hydronephrosis. Urinary bladder is decompressed. Uterus and ovaries are present. No bowel obstruction, focal bowel wall thickening or significant perienteric inflammation. Appendix is not visualized. No pelvic free fluid. No free air. No abdominal aortic aneurysm or suspicious adenopathy. Superficial soft tissues are within normal limits. No acute osseous abnormality. CT/Abdomen/Pelvis W IV Cont ONLY IMPRESSION: No acute process. One or more dose reduction techniques were used (e.g., Automated exposure contr ol, adjustment of the mA and/or kV according to patient size, use of iterative reconstruction technique). Reading Location: [facility]
--- NOTE | 2024-11-03 20:46 | EDS_ITS ---
HPI <Dr. Sergey Islas MD - Last Filed: 11/03/24 23:52> HPI - GI History of Present Illness Chief Complaint: Abd Pain Informant: patient Narrative Narrative: 29-year-old female states has been having abdominal pain for about 3 weeks. She was seen here near the beginning and diagnosed with UTI took the antibiotics nothing changed and she has not been able to get into see her doctor yet and states that she cannot wait for her appointment. It has been in the left side and flank for the past 2 or 3-week, but she states today it became bilateral and more diffuse radiating toward her umbilicus. It is not really lower abdominal. She denies any fevers or chills or urinary symptoms. She has had some nausea, she has vomited occasionally in the last several days but that has not been very prominent symptom and she states her bowel movements been normal. She has a history of gastroparesis and states this feels totally different than when she has those issues. [facility] <Dr. Sergey Islas MD - Last Filed: 11/03/24 23:52> [facility] Medical History UTI (urinary tract infection) Type 1 diabetes Metabolic acidosis Leukocytosis DKA, type 1 Intractable abdominal pain Intractable nausea and vomiting Panic disorder Major depressive disorder, recurrent severe without psychotic features Diabetic gastroparesis Substance abuse Kidney stones Kidney disease Smoker Intractable vomiting Type 1 diabetes Marfan syndrome PTSD (post-traumatic stress disorder) Borderline personality disorder Home Medications ?Medication ?Instructions ?Recorded ?Last Taken ?Type insulin lispro 100 unit/mL See Rx Instructions .Route .COMPLEX 04/27/23 06/06/24 History subcutaneous solution (Humalog U-100 Insulin) pen needle, diabetic 29 gauge x #100 ea 08/10/23 Unkno wn Rx 1/2 (Ultra-Thin II Insulin Pen [place]) risankizumab-rzaa 150 mg/mL 150 mg subcut .[id number] PS ORIASIS 02/07/24 Unknown History subcutaneous pen injector (Skyrizi) Insulin Basal Pump (Pt's Own) 1.8 unit subcut UD diabe edison ##0 06/11/24 Unknown Rx [Pump, Basal] prochlorperazine maleate 10 mg 10 mg PO TID PRN nausea and 06/11/24 Unknown Rx tablet (Compazine) vomiting #30 tabs albuterol sulfate 90 mcg/actuation 1 - 2 puff inhalati on Q4H PRN PRN 08/01/24 Unknown Rx aerosol inhaler (Ventolin HFA) Wheezing ##1 doxepin 6 mg tablet 6 mg PO QHS insomnia 5 Unknown History potassium, sodium phosphates 280 1 packet PO DAILY sup plement 10/18/24 Unknown History mg-160 mg-250 mg oral powder packet promethazine 25 mg tablet 50 mg PO Q6H PRN nausea and 10/18/24 Unknown History vomiting quetiapine 50 mg tablet,extended 50 mg PO QHS mood Unknown History release 24 hr fluconazole 100 mg tablet 100 mg PO DAILY #7 tabs 09/29 12/20 Unknown Rx (Diflucan) hydrocodone-acetaminophen 5-325mg 1 tab PO Q6H PRN chao n 5 days #14 10/21/24 Unknown Rx 5mg-325mg tabs nitrofurantoin 100 mg PO Q12H 7 days #14 ca ps 10/21/24 Unknown Rx monohydrate/macrocrystals 100 mg capsule (Macrobid) phenazopyridine 200 mg tablet 200 mg PO TID #15 tabs 0 10/21/24 Unknown Rx (Pyridium) Allergy/AdvReac Type Severity Reaction Status Date / Time adhesive tape Allergy Intermediate Rash Verified 11/03/24 19:54 cephalexin (From Keflex) Allergy Intermediate yeast Verified 11/03/24 19:54 infection morphine Allergy Intermediate Rash Verified 11/03/24 19:54 oxycodone (From Percocet) Allergy Intermediate Rash Verified 11/03/24 19:54 ondansetron AdvReac I BLACK Verified 11/03/24 19:54 OUT AND LOSE CONTROL OF MY BLADDER Family History (Updated 10/19/24 @ 02:[address] Ramya Lombardo MD) Mother Anxiety and depression Bipolar disorder PCOS (polycystic ovarian syndrome) Father Valvular heart disease Surgical History History of loop recorder Hx of appendectomy Hx of eye surgery H/O aortic root repair Social History (Updated 10/19/24 @ 02:[address] Ramya Lombardo MD) household members: spouse Smoking Status: Current every day smoker tobacco type: e-cigarettes Electronic Cigarette Use: with nicotine alcohol intake: never substance use type: marijuana ROS <Dr. Sergey Islas MD - Last Filed: 11/03/24 23:52> ROS ED Constitutional Constitutional ED: Denies chills or fever(s) Eyes Eyes: Denies change in vision or diplopia ENT ENT ED: Denies rhinorrhea or sore throat Cardiovascular Cardiovascular: Reports other Details: Had some chest burning several days ago but has not recurred ; Denies chest pain or palpitations Respiratory/Chest Respiratory/Chest: Denies cough or dyspnea Gastrointestinal Gastrointestinal: Reports abdominal pain, nausea and vomiting; Denies diarrhea, hematemesis, hematochezia or melena Genitourinary Genitourinary ED: Denies dysuria or hematuria Musculoskeletal Musculoskeletal: Reports back pain; Denies neck pain Integumentary Denies abscess or rash Neurologic Neurologic: Denies headache(s), paresthesias or weakness Psychiatric Psychiatric: Denies suicidal thoughts EXAM <Dr. Sergey Islas MD - Last Filed: 11/03/24 23:52> Physical Exam Const Vital Signs: 11/03/24 19:54 11/03/24 22:02 11/03/24 23:58 Temperature 98.3 F Temperature Source Oral Pulse Rate 125 H 69 Respiratory Rate 12 18 Blood Pressure 149/93 H 117/61 Blood Pressure Mean 111 79 Pulse Ox 98 99 79 Oxygen Delivery Method Room Air Room Air Room Air Oxygen Flow Rate (L/min) 11/04/24 00:05 Temperature Temperature Source Pulse Rate 87 Respiratory Rate 16 Blood Pressure 114/46 L Blood Pressure Mean 68 Pulse Ox 98 Oxygen Delivery Method Nasal Cannula Oxygen Flow Rate (L/min) 2 Positive well nourished and well developed Constitutional Narrative: Pacing the room, tearful in discomfort General Appearance ED: well developed HEENT Reports moist mucous membranes normocephalic and atraumatic Eyes PERRL and EOMs intact bilaterally Neck full ROM and supple Resp normal respiratory effort and clear to auscultation bilaterally Cardio regular rate, regular rhythm and no murmurs GI non-distended GI Narrative: Tender throughout left abdomen, no guarding or rebound tenderness, otherwise benign abdomen Auscultation: normoactive bowel sounds Palpation: soft Back/Spine Back/Spine Narrative: Normal inspection General Back: CVA tenderness left (Mild) and other FROM Extremity normal to inspection General Extremety ED: Negative for edema, pulses abnormal or tenderness General Extremity: Negative for edema or pulses abnormal Neuro oriented x3, CN's II-XII intact bilaterally and no sensory deficits noted Sensorium / Orientation: awake and alert Motor Exam: strength 5/5 throughout Psych Mood & Affect: anxious and tearful Skin no rashes or lesions noted and no wounds <Dr. Avinash Fall DO - Last Filed: 11/04/24 01:22> Physical Exam Const Vital Signs: 11/03/24 19:54 11/03/24 22:02 11/03/24 23:58 Temperature 98.3 F Temperature Source Oral Pulse Rate 125 H 69 Respiratory Rate 12 18 Blood Pressure 149/93 H 117/61 Blood Pressure Mean 111 79 Pulse Ox 98 99 79 Oxygen Delivery Method Room Air Room Air Room Air Oxygen Flow Rate (L/min) 11/04/24 00:05 Temperature Temperature Source Pulse Rate 87 Respiratory Rate 16 Blood Pressure 114/46 L Blood Pressure Mean 68 Pulse Ox 98 Oxygen Delivery Method Nasal Cannula Oxygen Flow Rate (L/min) 2 MDM <Dr. Sergey Islas MD - Last Filed: 11/03/24 23:52> MDM MDM Narrative Medical decision making narrative: Patient basically with diffuse bilateral abdominal pain that goes into her back but for the past 2 weeks or more it has been in her left flank. She is very anxious. States she was treated with antibiotics for possible urine/kidney infection several weeks ago and it did not help anything. Indeed her culture returned negative, and it seems that she had a CT then of the abdomen/pelvis that was negative. I repeated that, and obtain labs and offered her a dose of fentanyl, Zofran, some IV fluids for symptoms. She initially refused the fentanyl saying that it tends to give her headaches, and she states she is allergic to morphine and oxycodone, and has reactions to Zofran, and wants Dilaudid. I advised her that she is welcome to have the fentanyl that we offered her, but I am not giving her Dilaudid for 2 weeks of pain unless we find an acutely painful emergent condition on imaging. She eventually excepted the fentanyl, and went to CT which the electromechanical assembly technician states was very limited because she had trouble keeping still for the scan. I reviewed the images, I do not see any acute abnormalities on my interpretation. I reviewed the radiology which I agree with, they are in agreement. Upon coming back, she is coughing and gagging herself on accident and vomiting, is hysterical, crying, complaining of pain, nausea, and states she feels like she can't breathe. Her vital signs are normal. She is very anxious and agitated. My suspicion is that this is functional GI pain. She states this is different than her gastroparesis pain but the next medications I used to treat her was Thorazine, Benadryl, dicyclomine, and Ativan to try to help with her symptoms. She was then observed. Since she is a type I diabetic and her blood sugars 375 and her bicarb is a lit tle low also considering DKA so we will send a venous pH and serum ketones as well. She has an insulin pump, says she programmed her pump to treat herself for a blood sugar of 375. Checked out to night physician. History & Record Review Additional record(s) reviewed:: Prior ED visit and Prior labs (And imaging and urine culture) Lab Data Attestation: I reviewed the patient's lab results. Labs: Laboratory Results - last 24 hr 11/03/24 21:21 WBC 11.0 RBC 4.84 Hgb 14.2 Hct 42.1 MCV 87.0 MCH 29.3 MCHC 33.7 RDW Std Deviation 41.6 RDW Coeff of Joyce 13.2 Plt Count 263 MPV 12.4 H Immature Gran % (Auto) 0.800 Neut % (Auto) 76.3 H Lymph % (Auto) 17.5 L Barrow % (Auto) 4.6 Eos % (Auto) 0.3 Baso % (Auto) 0.5 Absolute Neuts (auto) 8.4 H Absolute Lymphs (auto) 1.92 Nucleated RBC % 0 Sodium 133 Potassium 4.4 Chloride 97 L Carbon Dioxide 18.2 L Anion Gap 18 H BUN 15 Creatinine 0.84 Estim Creat Clear Calc 102.34 Est GFR (MDRD) Non-Af 96 BUN/Creatinine Ratio 17.6 Glucose 375 H Calcium 9.9 Total Bilirubin 0.98 AST 20 ALT 22 Alkaline Phosphatase 101 Total Protein 7.9 Albumin 4.7 Globulin 3.3 Albumin/Globulin Ratio 1.4 Lipase 14 b-Hydroxybutyric mmol/L 1.5 Urine Color Straw Urine Clarity Turbid Urine pH 6.0 Ur Specific Raymond 1.015 Urine Protein Negative Urine Glucose (UA) 1000 H Urine Ketones 50 H Urine Occult Blood Negative Urine Nitrite Negative Urine Bilirubin Negative Urine Urobilinogen Normal Ur Leukocyte Esterase Negative Urine RBC 0 SEEN Urine WBC 0-5 SEEN Ur Squamous Epith Cells 0-5 SEEN Urine Bacteria RARE Urine Mucus 0 SEEN Radiography Diagnostic Testing: Clinical Impression(s) from Imaging Studies Abdomen/Pelvis CT 11/03/24 20:41 IMPRESSION: No acute process. One or more dose reduction techniques were used (e.g., Automated exposure control, adjustment of the mA and/or kV according to patient size, use of iterative reconstruction technique). Reading Location: [facility] <Dr. Avinash Fall, DO - Last Filed: 11/04/24 01:22> [facility] Narrative Medical decision making narrative: Patient basically with diffuse bilateral abdominal pain that goes into her back but for the past 2 weeks or more it has been in her left flank. She is very anxious. States she was treated with antibiotics for possible urine/kidney infection several weeks ago and it did not help anything. Indeed her culture returned negative, and it seems that she had a CT then of the abdomen/pelvis that was negative. I repeated that, and obtain labs and offered her a dose of fentanyl, Zofran, some IV fluids for symptoms. She initially refused the fentanyl saying that it tends to give her headaches, and she states she is allergic to morphine and oxycodone, and has reactions to Zofran, and wants Dilaudid. I advised her that she is welcome to have the fentanyl that we offered her, but I am not giving her Dilaudid for 2 weeks of pain unless we find an acutely painful emergent condition on imaging. She eventually excepted the fentanyl, and went to CT which the electromechanical assembly technician states was very limited because she had trouble keeping still for the scan. I reviewed the images, I do not see any acute abnormalities on my interpretation. I reviewed the radiology which I agree with, they are in agreement. Upon coming back, she is coughing and gagging herself on accident and vomiting, is hysterical, crying, complaining of pain, nausea, and states she feels like she can't breathe. Her vital signs are normal. She is very anxious and agitated. My suspicion is that this is functional GI pain. She states this is different than her gastroparesis pain but the next medications I used to treat her was Thorazine, Benadryl, dicyclomine, and Ativan to try to help with her symptoms. She was then observed. Since she is a type I diabetic and her blood sugars 375 and her bicarb is a little low also considering DKA so we will send a venous pH and serum ketones as well. She has an insulin pump, says she programmed her pump to treat herself for a blood sugar of 375. Checked out to night physician. Patient was turned over to me by Dr. Islas @midnight Brief history: 29-year-old female here with nausea vomiting abdominal pain in the setting of diabetes and gastroparesis Physical exam: Benign abdominal exam with no significant peritoneal signs Labs and images reviewed (if obtained): Reviewed the patient's labs and images CT scan abdomen pelvis was negative VBG without significant acidosis, pH 7.397, bicarb slightly low at 18.7 suggestive of metabolic acidosis BMP with metabolic acidosis and elevated anion gap but not consistent with DKA as her bicarb is greater than 15, no significant electrolyte abnormalities, noted blood sugar 375 no significant hepatobiliary pathology noted Lipase is wnl indicating no pancreatic inflammation. Beta hydroxy butyrate negative making DKA less likely Urinalysis shows no evidence of urinary inflammation suggestive of UTI MDM/plan: I suspect the patient's presentation secondary to gastroparesis complicated by hyperglycemia and poorly controlled diabetes. The patient's insulin pump. She care for self insulin. She received Reglan, fentanyl, Ativan, Thorazine and Bentyl with improvement in symptoms. She was resting comfortably in the ED. Repeat abdominal exam remained benign. She is able to tolerate p.o. here in the ED. She was discharged with a prescription for Reglan and close GI follow-up. Upon discharge patient was clinically well-appearing, sober. There is no signs of lingering drowsiness from Thorazine or Ativan. She was ambulated with a non- ataxic gait. She is appropriate for discharge home. Impression: 1. Acute abdominal pain 2. Acute nausea and vomiting 3. History of gastroparesis Disposition: Discharge home Lab Data Labs: Laboratory Results - last 24 hr 11/03/24 21:21 WBC 11.0 RBC 4.84 Hgb 14.2 Hct 42.1 MCV 87.0 MCH 29.3 MCHC 33.7 RDW Std Deviation 41.6 RDW Coeff of Joyce 13.2 Plt Count 263 MPV 12.4 H Immature Gran % (Auto) 0.800 Neut % (Auto) 76.3 H Lymph % (Auto) 17.5 L Barrow % (Auto) 4.6 Eos % (Auto) 0.3 Baso % (Auto) 0.5 Absolute Neuts (auto) 8.4 H Absolute Lymphs (auto) 1.92 Nucleated RBC % 0 Sodium 133 Potassium 4.4 Chloride 97 L Carbon Dioxide 18.2 L Anion Gap 18 H BUN 15 Creatinine 0.84 Estim Creat Clear Calc 102.34 Est GFR (MDRD) Non-Af 96 BUN/Creatinine Ratio 17.6 Glucose 375 H Calcium 9.9 Total Bilirubin 0.98 AST 20 ALT 22 Alkaline Phosphatase 101 Total Protein 7.9 Albumin 4.7 Globulin 3.3 Albumin/Globulin Ratio 1.4 Lipase 14 b-Hydroxybutyric mmol/L 1.5 Urine Color Straw Urine Clarity Turbid Urine pH 6.0 Ur Specific Raymond 1.015 Urine Protein Negative Urine Glucose (UA) 1000 H Urine Ketones 50 H Urine Occult Blood Negative Urine Nitrite Negative Urine Bilirubin Negative Urine Urobilinogen Normal Ur Leukocyte Esterase Negative Urine RBC 0 SEEN Urine WBC 0-5 SEEN Ur Squamous Epith Cells 0-5 SEEN Urine Bacteria RARE Urine Mucus 0 SEEN Radiography Diagnostic Testing: Clinical Impression(s) from Imaging Studies Abdomen/Pelvis CT 11/03/24 20:41 IMPRESSION: No acute process. One or more dose reduction techniques were used (e.g., Automated exposure control, adjustment of the mA and/or kV according to patient size, use of iterative reconstruction technique). [facility] T[facility] Chief Complaint: Abd Pain ED Provider: Sergey Islas Dx/Rx/DC Orders Clinical Impression: Diffuse abdominal pain, Vomiting, Hyperglycemia due to type 1 diabetes mellitus Instructions: Abdominal Pain, ED Diabetic Hyperglycemia Prescriptions: No Action insulin lispro [Humalog U-100 Insulin] 100 unit/mL solution See Rx Instructions .ROUTE .COMPLEX Patient Comments: use IN THE INSULIN PUMP FOR A TOTAL DAILY DOSE OF 100 UNITS. 06/07/24- PUMP IS NOT CURRENTLY ATTACHED. PT NOT RECIEVING INSULIN. Rx Instructions: 100 U VIA PUMP DAILY; BASAL RATE - 1.8 UNITS/HOUR BOLUS: CARB RATIO- 1 UNIT /10 GRAMS OF CARBS CORRECTION- 1 UNIT FOR EVERY 30MG/DL BLOOD GLUCOSE OVER 120 (DME) pen needle, diabetic [Ultra-Thin II Ins Pen [place]] 29 gauge x 1/2 needle See Rx Instructions .Route Qty: 100 0RF Rx Instructions: As directed Skyrizi 150 mg/mL pen injector 150 mg subcut .[id number] Patient Comments: PT STATES LAST DOSE WAS LESS THAN A MONTH AGO ( OF 06/07/24) Rx Instructions: LAST DOSE SOMETIME IN NOV albuterol sulfate [Ventolin HFA] 90 mcg/actuation HFA aerosol inhaler 1 - 2 puff inhalation Q4H PRN PRN (Reason: Wheezing) Qty: 1 0RF Insulin Basal Pump (Pt's Own) [Pump, Basal] 1.8 unit subcut UD Qty: 0 0RF prochlorperazine maleate [Compazine] 10 mg tablet 10 mg PO TID PRN (Reason: nausea and vomiting) Qty: 30 0RF promethazine 25 mg tablet 50 mg PO Q6H PRN (Reason: nausea and vomiting) Rx Instructions: one or two every six hours for nausea potassium, sodium phosphates 280-160-250 mg Powder In Packet 1 packet PO DAILY quetiapine 50 mg tablet extended release 24 hr 50 mg PO QHS doxepin 6 mg tablet 6 mg PO QHS phenazopyridine [Pyridium] 200 mg tablet 200 mg PO TID Qty: 15 0RF nitrofurantoin monohyd/m-cryst [Macrobid] 100 mg capsule 100 mg PO Q12H 7 Days Qty: 14 0RF Rx Instructions: must administer with a meal/food fluconazole [Diflucan] 100 mg tablet 100 mg PO DAILY Qty: 7 0RF hydrocodone-acetaminophen 5-325 mg tablet 1 tab PO Q6H PRN (Reason: pain) 5 Days Qty: 14 0RF Primary Care Provider: Care Physician,No Primary Referrals: Doctor,Your [Non-Staff] - As soon as possible Print Language: Telugu
[2024-11-03] MEDS: 0.9% Normal Saline (1000mL) 1,000 ML 999 ML IV (21:26)
[2024-11-03] MEDS: Metoclopramide 10 MG/2 ML Vial 5 MG IV (21:26)
[2024-11-03 21:37] LABS: Mucous, Urine 0 SEEN /hpf (<or=2+)
[2024-11-03] MEDS: fentaNYL 100 MCG/2 ML Ampul 50 MCG IV (21:38)
[2024-11-03] MEDS: Ketorolac 30 MG/ML Syringe IV (21:39)
[2024-11-03 22:00] LABS: Absolute Lymphocyte Count 1.92 X10^3/uL (0.83-4.51); Absolute Neutrophil Count 8.4 X10^3/uL (2.0-7.7); Basophil# 0.06 X10^3/uL; Basophil% 0.5 % (0-1); Eosinophil# 0.03 X10^3/uL; Eosinophils% 0.3 % (0-5); Hematocrit 42.1 % (37-47); Hemoglobin 14.2 g/dL (12.0-15.0); Lymphocyte # 1.92 X10^3/ul (0.83-4.51); Lymphocyte % 17.5 % (19-41); Mean Corp Hgb Conc 33.7 g/dL (32-36); Mean Corpuscular Hgb 29.3 pg (27.0-32.0); Mean Platelet Vol. 12.4 fl (6.2-12.0); Monocyte% 4.6 % (0-10); NRBC Flagged by Analyzer 0 % (0-5); Neutrophil # 8.35 X10^3/uL (2.7-7.7); Neutrophil % 76.3 % (47-70); Platelet Count 263 K/mm3 (150-450); RBC Distribution Width CV 13.2 % (11.6-14.6); RBC Distribution Width SD 41.6 fl (35.1-43.9); Red Blood Count 4.84 M/mm3 (4.2-5.4)
[2024-11-03 22:01] LABS: Color, Urine Straw (Yellow); Glucose, Dipstick 1000 mg/dl (Normal); Ketone-Dipstick 50 mg/dl (Negative); Leukocyte Esterase-Dipstick Negative /ul (Negative); Nitrite-Dipstick Negative (Negative); Occult Blood-Urine Negative /ul (Negative); Protein-Dipstick Negative (Negative); Specific Gravity, Urine 1.015 (1.002-1.030); Urine Bilirubin Dipstick Negative (Negative); Urine Clarity Turbid (Clear); Urine Urobilinogen Normal (Normal)
[2024-11-03 22:02] VITALS: BP 117/61; PULSE 69; RESP 18; O2SAT 99
[2024-11-03 22:26] LABS: Bacteria RARE /hpf (None Seen); Red Blood Cells-Urine 0 SEEN /hpf (0-5); Squamous Epithelial Cells - UA 0-5 SEEN /hpf (5-10); White Blood Cells 0-5 SEEN /hpf (0-5)
[2024-11-03 22:52] LABS: ALB/GLOB Ratio 1.4 RATIO (0.9-2.4); AST(SGOT) 20 U/L (<=31); Alanine Aminotransfer ALT/SGPT 22 U/L (<=34); Albumin, Serum 4.7 g/dL (3.5-5.0); Alkaline Phosphatase 101 U/L (35-104); Anion Gap 18 (5-15); BUN 15 mg/dL (4-19); BUN/Creat Ratio 17.6 RATIO (10-20); Calcium,Total 9.9 mg/dL (7.6-11.0); Carbon Dioxide 18.2 mmol/L (21.0-32.0); Chloride 97 mmol/L (98-108); Creatinine, Serum 0.84 mg/dL (0.70-1.20); EST Glomerular Filtration Rate 96 (>60); Estimated Creatinine Clearance 102.34 ml/min (50-250); Globulin 3.3 g/dL (2.2-4.2); Glucose 375 mg/dL (70-99); Lipase 14 U/L (13-75); Potassium 4.4 mmol/L (3.3-5.1); Protein, Total 7.9 g/dL (5.9-8.4); Sodium Level 133 mmol/L (133-145); Total Bilirubin 0.98 mg/dL (0.00-1.30)
[2024-11-03] MEDS: ChlorproMAZINE 50 MG/2 ML Ampul 12.5 MG IV (23:49)
[2024-11-03] MEDS: Lorazepam 2 MG/ML WCH Syringe 1 MG IV (23:50)
[2024-11-03] MEDS: DiphenhydrAMINE 50 MG/ML Syringe 25 MG IV (23:50)
[2024-11-03] MEDS: Dicyclomine 20 MG/2 ML Vial IM (23:50)
[2024-11-03 23:58] VITALS: O2SAT 79
[2024-11-04 00:05] VITALS: BP 114/46; PULSE 87; RESP 16; O2SAT 98
[2024-11-04 00:38] LABS: BETA-HYDROXYBUTYRATE 1.5 mmol/L (0.0-0.3)
--- NOTE | 2024-11-04 00:45 | ED.RN ---
Patient given cup of water for PO challenge
[2024-11-04 02:00] VITALS: BP 116/54; PULSE 76; RESP 18; O2SAT 95
[2024-11-04 03:13] VITALS: BP 122/76; PULSE 74; RESP 16; TEMP 37.1; O2SAT 99
[2024-11-04 06:33] LABS: Blood Gas Specimen Type VEN; VBG PO2 71 mmHg (25-40); VBG pCO2 30.3 mmHg (41-51)
[2024-11-04 06:34] LABS: VBG Bicarbonate 19 mmol/L (22-26); VBG SO2 94 % (50-70); VBG TCO2 20 mmol/L (23-33)
== END 2024-11-04 03:14 | disposition home or self-care (01) ==
PROVIDERS: Emergency Provider Emergency Medicine; Visit Provider Emergency Medicine
DX: R10.84 Generalized abdominal pain (principal); Z79.4 Long term (current) use of insulin; E10.65 Type 1 diabetes mellitus with hyperglycemia; R11.2 Nausea with vomiting, unspecified; M54.9 Dorsalgia, unspecified; Q87.40 Marfan syndrome, unspecified; F17.290 Nicotine dependence, other tobacco product, uncomplicated; Z96.41 Presence of insulin pump (external) (internal); Z79.899 Other long term (current) drug therapy
CPT/HCPCS: 96361; 96372; 96374; 96375; 99284; 74177; 80053; 81001; 82010; 82803; 83690; 85025; Q9967; A4216

== ENCOUNTER 2024-11-05 13:57 | Inpatient (IN) | payer MEDICARE, MEDICAID, SELFPAY ==
[2024-11-05] VITALS (7 sets, daily range): BP systolic 103–149; BP diastolic 54–92; PULSE 74–117; RESP 16–22; TEMP 36.2–37.1; O2SAT 94–99; BMI 24.9; BMI 24.3
--- NOTE | 2024-11-05 14:32 | US_ITS ---
EXAM: US Abdomen Limited, Gallbladder CLINICAL INDICATION: RUQ PAIN TECHNIQUE: Real-time ultrasound of the right upper quadrant with image documentation. COMPARISON: No relevant prior studies available. FINDINGS: LIVER: Liver measures up to 16.4 cm. Fatty infiltration of the liver. GALLBLADDER: Gallbladder appears normal. Negative Gibson's sign was reported by the sap solution manager consultant. No gallstones. COMMON BILE DUCT: Unremarkable as visualized. No stones. No dilation. Common bile duct measures 0.4 cm in diameter. PANCREAS: Unremarkable as visualized. RIGHT KIDNEY: Unremarkable. No stones. No hydronephrosis. The right kidney measures 10.2 x 4.4 x 4.3 cm. US/Gallbladder IMPRESSION: Fatty infiltration of the liver. Reading [facility]
[2024-11-05 14:43] LABS: Bedside Glucose 222 mg/dL (74-106)
[2024-11-05] MEDS: proCHLORPERazine 10 MG/2 ML Vial IV (14:46)
[2024-11-05] MEDS: 0.9% Normal Saline (1000mL) 1,000 ML 999 ML IV ×2 (14:47→17:48)
[2024-11-05] MEDS: HYDROmorphone 1 MG/ML Syringe 0.5 MG IV (14:47)
[2024-11-05 15:36] LABS: Absolute Lymphocyte Count 0.93 X10^3/uL (0.83-4.51); Absolute Neutrophil Count 13.4 X10^3/uL (2.0-7.7); Basophil# 0.03 X10^3/uL; Basophil% 0.2 % (0-1); Hemoglobin 12.7 g/dL (12.0-15.0); Lymphocyte # 0.93 X10^3/ul (0.83-4.51); Lymphocyte % 6.1 % (19-41); Mean Corp Hgb Conc 33.4 g/dL (32-36); Mean Corpuscular Hgb 29.9 pg (27.0-32.0); Mean Corpuscular Volume 89.4 fL (81-99); Mean Platelet Vol. 11.7 fl (6.2-12.0); Monocyte# 0.71 X10^3/uL; Monocyte% 4.7 % (0-10); NRBC Flagged by Analyzer 0 % (0-5); Neutrophil # 13.42 X10^3/uL (2.7-7.7); Platelet Count 201 K/mm3 (150-450); RBC Distribution Width CV 13.6 % (11.6-14.6); RBC Distribution Width SD 44.6 fl (35.1-43.9); Red Blood Count 4.25 M/mm3 (4.2-5.4); White Blood Count 15.2 K/mm3 (4.4-11.0)
[2024-11-05 15:41] LABS: Blood Gas Specimen Type VEN; O2 Delivery Device Not entered; SITE Not entered; VBG BASE EXCESS -11 mmol/L (-1.0-3.5); VBG Bicarbonate 14 mmol/L (22-26); VBG PO2 68 mmHg (25-40); VBG SO2 95 % (50-70); VBG TCO2 14 mmol/L (23-33); VBG pCO2 20.7 mmHg (41-51); VBG pH 7.43 (7.32-7.42)
[2024-11-05 15:45] LABS: Internal QC Validated? YES +Cl - CLEAR BKGD; Pregnancy, Serum, hCG Quali. NEGATIVE Negative
[2024-11-05 16:27] LABS: Lipase 13 U/L (13-75)
[2024-11-05 16:29] LABS: ALB/GLOB Ratio 1.5 RATIO (0.9-2.4); AST(SGOT) 21 U/L (<=31); Alanine Aminotransfer ALT/SGPT 17 U/L (<=34); Albumin, Serum 4.1 g/dL (3.5-5.0); Alkaline Phosphatase 89 U/L (35-104); Anion Gap 27 (5-15); BUN 16 mg/dL (4-19); BUN/Creat Ratio 18.4 RATIO (10-20); Calcium,Total 8.2 mg/dL (7.6-11.0); Carbon Dioxide 12.8 mmol/L (21.0-32.0); Chloride 94 mmol/L (98-108); Creatinine, Serum 0.86 mg/dL (0.70-1.20); EST Glomerular Filtration Rate 93 (>60); Estimated Creatinine Clearance 99.96 ml/min (50-250); Globulin 2.8 g/dL (2.2-4.2); Glucose 251 mg/dL (70-99); Protein, Total 6.9 g/dL (5.9-8.4); Sodium Level 134 mmol/L (133-145); Total Bilirubin 1.15 mg/dL (0.00-1.30)
--- NOTE | 2024-11-05 16:33 | EDS_ITS ---
HPI History of Present Illness Chief Complaint: Nausea/Vomiting Narrative Narrative: Patient is a 29-year-old female past medical history type 1 diabetes, pain disorder, compartment syndrome, borderline personality disorder who presents to the emergency department chief complaint abdominal pain nausea vomiting not tolerating oral intake. Patient states that she was here recently and was ultimately sent home. States that she has not been able to keep anything down and was told that she should follow-up with her dairy supplies sales representative. She called her dairy supplies sales representative and they said that if the pain was not better they should she should return to the emergency department which she did. [facility] Medical History UTI (urinary tract infection) Type 1 diabetes Metabolic acidosis Leukocytosis DKA, type 1 Intractable abdominal pain Intractable nausea and vomiting Panic disorder Major depressive disorder, recurrent severe without psychotic features Diabetic gastroparesis Substance abuse Kidney stones Kidney disease Smoker Intractable vomiting Type 1 diabetes Marfan syndrome PTSD (post-traumatic stress disorder) Borderline personality disorder Home Medications ?Medication ?Instructions ?Recorded ?Last Taken ?Type insulin lispro 100 unit/mL See Rx Instructions .Route .COMPLEX 04/27/23 06/06/24 History subcutaneous solution (Humalog U-100 Insulin) pen needle, diabetic 29 gauge x #100 ea 08/10/23 Unkno wn Rx 1/2 (Ultra-Thin II Insulin Pen [place]) risankizumab-rzaa 150 mg/mL 150 mg subcut .[id number] PS ORIASIS 02/07/24 Unknown History subcutaneous pen injector (Skyrizi) Insulin Basal Pump (Pt's Own) 1.8 unit subcut UD diabe edison ##0 06/11/24 Unknown Rx [Pump, Basal] prochlorperazine maleate 10 mg 10 mg PO TID PRN nausea and 06/11/24 Unknown Rx tablet (Compazine) vomiting #30 tabs albuterol sulfate 90 mcg/actuation 1 - 2 puff inhalati on Q4H PRN PRN 08/01/24 Unknown Rx aerosol inhaler (Ventolin HFA) Wheezing ##1 doxepin 6 mg tablet 6 mg PO QHS insomnia 5 Unknown History promethazine 25 mg tablet 50 mg PO Q6H PRN nausea and 10/18/24 Unknown History vomiting quetiapine 50 mg tablet,extended 50 mg PO QHS mood Unknown History release 24 hr hydrocodone-acetaminophen 5-325mg 1 tab PO Q6H PRN chao n 5 days #14 10/21/24 Unknown Rx 5mg-325mg tabs metoclopramide HCl 5 mg tablet 5 mg PO Q8H PRN PRN vamsi sea and 11/04/24 Unknown Rx (Reglan) vomiting 5 days #15 tabs Allergy/AdvReac Type Severity Reaction Status Date / Time adhesive tape Allergy Intermediate Rash Verified 11/05/24 13:59 cephalexin (From Keflex) Allergy Intermediate yeast Verified 11/05/24 13:59 infection morphine Allergy Intermediate Rash Verified 11/05/24 13:59 oxycodone (From Percocet) Allergy Intermediate Rash Verified 11/05/24 13:59 ondansetron AdvReac I BLACK Verified 11/05/24 13:59 OUT AND LOSE CONTROL OF MY BLADDER Family History Mother Anxiety and depression Bipolar disorder PCOS (polycystic ovarian syndrome) Father Valvular heart disease Surgical History History of loop recorder Hx of appendectomy Hx of eye surgery H/O aortic root repair Social History household members: spouse Smoking Status: Current every day smoker tobacco type: e-cigarettes Electronic Cigarette Use: with nicotine alcohol intake: never substance use type: marijuana ROS ROS ED ROS Narrative Constitutional: Denies fevers, chills, headache Cardiovascular: Denies chest pain or palpitations Respiratory: Denies cough and shortness of breath Abdomen: Complains of abdominal pain nausea and vomiting not tolerating oral intake as noted above : Denies urinary symptoms Neurological: Denies numbness, weakness, tingling Musculoskeletal: Denies back pain Skin: Denies rashes or lesions EXAM Physical Exam Narrative Exam Narrative: General: Patient lying in bed looks uncomfortable not feeling well overall Head: Atraumatic, normocephalic Eyes: PERRL bilaterally, EOMI bilateral, no conjunctival injection noted Neck: Soft, supple, trachea midline Cardiovascular: Regular rate and rhythm Respiratory: Clear to auscultation bilaterally Abdomen: Soft, nondistended, tenderness palpation of right upper quadrant no rebound or guarding on exam Extremities: +5/5 strength noted in the bilateral upper and lower extremities Neurological: Patient following commands that she was at [facility] year is 2024 Skin: Warm, dry, intact no rashes or lesions noted Const Vital Signs: 11/05/24 13:59 11/05/24 15:59 11/05/24 17:00 Temperature 97.2 F L Temperature Source Temporal Pulse Rate 117 H 78 74 Respiratory Rate 22 H 18 18 Blood Pressure 113/78 111/54 L 103/57 L Blood Pressure Mean 89 73 72 Pulse Ox 98 99 96 Oxygen Delivery Method Room Air Room Air Room Air MDM MDM MDM Narrative Medical decision making narrative: Patient is a 29-year-old female who presents to the emergency department with a concern of being in DKA. On the differential diagnose includes but not limited to DKA, cholecystitis, viral gastroenteritis. Once workup is obtained reviewed she will be reevaluated. Patient given IV fluids. Patient's glucose was noted be 222 by bedside [id number] testing. Patient's CBC reviewed showed leukocytosis of 15,000, hemoglobin was noted be 12.7, plate count of 201. Patient's venous blood gas showed pH 7.43. Patient sodium normal at 134, potassium low at 3 she will be given 40 mill equivalents of IV potassium supplementation as she is not tolerating anything orally and is vomiting, carbon dioxide low at 12.8, anion gap at 27. Patient's glucose of 251, lactic acid pending. Patient AST and ALT were 21 and 17 respectively. Patient's beta hydroxybutyrate pending, test negative. Patient's urinalysis pending. Patient's ultrasound of her gallbladder showed fatty infiltration of the liver. Patient CT abdomen pelvis from 11/03/2024 reviewed s howed no acute processes. Patient case will be discussed with hospitalist for admission. I called the hospitalist Dr. Suarez discussed with her and given her normal pH and abnormal labs there is concern for a lab error. I reached out to the lab and they states that it will be another hour prior to the beta-hydroxybutyrate result pending. At this point time this will be signed out to oncoming provider to follow-up on before decision can be made for ICU for insulin drip versus regular floor. Lab Data Labs: Laboratory Results - last 24 hr 11/05/24 11/05/24 14:27 15:25 WBC 15.2 H RBC 4.25 Hgb 12.7 Hct 38.0 MCV 89.4 MCH 29.9 MCHC 33.4 RDW Std Deviation 44.6 H RDW Coeff of Joyce 13.6 Plt Count 201 MPV 11.7 Immature Gran % (Auto) 1.000 H Neut % (Auto) 88.0 H Lymph % (Auto) 6.1 L [place] % (Auto) 4.7 Eos % (Auto) 0.0 Baso % (Auto) 0.2 Absolute Neuts (auto) 13.4 H Absolute Lymphs (auto) 0.93 Nucleated RBC % 0 Sodium 134 Potassium 3.0 L Chloride 94 L Carbon Dioxide 12.8 L Anion Gap 27 H BUN 16 Creatinine 0.86 Estim Creat Clear Calc 99.96 Est GFR (MDRD) Non-Af 93 BUN/Creatinine Ratio 18.4 Glucose 251 H Calcium 8.2 Total Bilirubin 1.15 AST 21 ALT 17 Alkaline Phosphatase 89 Total Protein 6.9 Albumin 4.1 Globulin 2.8 Albumin/Globulin Ratio 1.5 Lipase 13 Serum , Qual NEGATIVE POC Glucose 222 H ABG Data ABG results: ABG 11/05/24 15:38 Specimen Type ISABELLE Sample Site Not entered VBG pH 7.43 H VBG pO2 68 H VBG HCO3 14 L VBG Total CO2 14 L VBG O2 Sat (Calc) 95 H VBG Base Excess -11 L POC Mix VBG pCO2 Pt Tmp 20.7 L O2 Delivery Device Not entered Radiography Diagnostic Testing: Clinical Impression(s) from Imaging Studies Gallbladder Ultrasound 11/05/24 14:32 IMPRESSION: Fatty infiltration of the liver. Reading Location: [facility] Discharge Plan Triage Chief Complaint: Nausea/Vomiting ED Provider: Christian Frederick Dx/Rx/DC Orders Prescriptions: No Action insulin lispro [Humalog U-100 Insulin] 100 unit/mL solution See Rx Instructions .ROUTE .COMPLEX Patient Comments: use IN THE INSULIN PUMP FOR A TOTAL DAILY DOSE OF 100 UNITS. 06/07/24- PUMP IS NOT CURRENTLY ATTACHED. PT NOT RECIEVING INSULIN. Rx Instructions: 100 U VIA PUMP DAILY; BASAL RATE - 1.8 UNITS/HOUR BOLUS: CARB RATIO- 1 UNIT /10 GRAMS OF CARBS CORRECTION- 1 UNIT FOR EVERY 30MG/DL BLOOD GLUCOSE OVER 120 (DME) pen needle, diabetic [Ultra-Thin II Ins Pen [place]] 29 gauge x 1/2 needle See Rx Instructions .Route Qty: 100 0RF Rx Instructions: As directed Skyrizi 150 mg/mL pen injector 150 mg subcut .[id number] Patient Comments: PT STATES LAST DOSE WAS LESS THAN A MONTH AGO ( OF 06/07/24) Rx Instructions: LAST DOSE SOMETIME IN NOV albuterol sulfate [Ventolin HFA] 90 mcg/actuation HFA aerosol inhaler 1 - 2 puff inhalation Q4H PRN PRN (Reason: Wheezing) Qty: 1 0RF metoclopramide HCl [Reglan] 5 mg tablet 5 mg PO Q8H PRN PRN (Reason: nausea and vomiting) 5 Days Qty: 15 0RF Insulin Basal Pump (Pt's Own) [Pump, Basal] 1.8 unit subcut UD Qty: 0 0RF prochlorperazine maleate [Compazine] 10 mg tablet 10 mg PO TID PRN (Reason: nausea and vomiting) Qty: 30 0RF promethazine 25 mg tablet 50 mg PO Q6H PRN (Reason: nausea and vomiting) Rx Instructions: one or two every six hours for nausea quetiapine 50 mg tablet extended release 24 hr 50 mg PO QHS doxepin 6 mg tablet 6 mg PO QHS hydrocodone-acetaminophen 5-325 mg tablet 1 tab PO Q6H PRN (Reason: pain) 5 Days Qty: 14 0RF Primary Care Provider: Care Physician,No Primary Referrals: Care Physician,No Primary [Primary Care Provider] - Print Language: Citizen Of [place]
[2024-11-05] MEDS: Potassium Chloride 10mEq/100mL 10 MEQ/100 ML IV.SOLN. 100 MEQ IV BOLUS ×4 (16:50→19:48)
[2024-11-05 18:09] LABS: BETA-HYDROXYBUTYRATE 7.1 mmol/L (0.0-0.3)
--- NOTE | 2024-11-05 18:14 | HP.PCM.HOS_ITS ---
HPI - General General Date of Admission: 11/05/24 Date of Service: 11/05/24 Chief Complaint: Abdominal pain/nausea and vomiting KATE VILLA, is a 29 F who presented to the emergency department at [facility] on 11/05/2024 with a chief complaint of abdominal pain, nausea, and vomiting. Patient was seen in the emergency department on 11/03/2024 at which time she had a negative CT of her abdomen pelvis and was ultimately discharged home. She stated since that point time she not been able to keep anything down and was told she should follow-up with the unit manager rn. She called her unit manager rn on day of presentation and requested she follow-up in the emergency department. She states her abdominal pain starts in her back and radiates to her front and it is shocklike in nature. It is intermittent. She denies any dysuria. She denies any fever or chills. She states her stools have been soft but has not had any diarrhea. Vital signs on presentation showed temperature of 97.2, heart rate 117, respiratory was 22, blood pressure was 113/78 and pulse ox was 98% on room air. CBC showed a mildly elevated white count of 15.2 with a left shift at 88.0. But was otherwise unremarkable. Chemistry panel shows hypokalemia with potassium of 3.0, serum bicarb of 12.8 and anion gap of 27. Her BUN was normal at 16 and serum creatinine 0.86. Glucose was elevated to 51. Liver functions were normal. Lipase was normal. Beta hydroxybutyrate was slightly elevated 7.1 however an ABG was obtained and her pH was 7.42 which rules out DKA. She has significant ketosis on a UA so I suspect this is likely starvation ketosis. Unfortunately the rest of her UA was pending at the time of admission. Toxicology screen is pending. Serum test was negative. Right upper quadrant ultrasound was performed and was unremarkable. She did have a recent CT abdomen pelvis which was unremarkable on 11/04/2023 [facility] Medical History Depression UTI (urinary tract infection) Type 1 diabetes Metabolic acidosis Leukocytosis DKA, type 1 Intractable abdominal pain Intractable nausea and vomiting Panic disorder Major depressive disorder, recurrent severe without psychotic features Diabetic gastroparesis Substance abuse Kidney stones Kidney disease Smoker Intractable vomiting Type 1 diabetes Marfan syndrome PTSD (post-traumatic stress disorder) Borderline personality disorder Home Medications ?Medication ?Instructions ?Recorded ?Last Taken ?Type insulin lispro 100 unit/mL See Rx Instructions .Route .COMPLEX 04/27/23 06/06/24 History subcutaneous solution (Humalog U-100 Insulin) pen needle, diabetic 29 gauge x #100 ea 08/10/23 Unkno wn Rx 1/2 (Ultra-Thin II Insulin Pen [place]) risankizumab-rzaa 150 mg/mL 150 mg subcut .[id number] PS ORIASIS 02/07/24 Unknown History subcutaneous pen injector (Skyrizi) Insulin Basal Pump (Pt's Own) 1.8 unit subcut UD diabe edison ##0 06/11/24 Unknown Rx [Pump, Basal] prochlorperazine maleate 10 mg 10 mg PO TID PRN nausea and 06/11/24 Unknown Rx tablet (Compazine) vomiting #30 tabs albuterol sulfate 90 mcg/actuation 1 - 2 puff inhalati on Q4H PRN PRN 08/01/24 Unknown Rx aerosol inhaler (Ventolin HFA) Wheezing ##1 doxepin 6 mg tablet 6 mg PO QHS insomnia 5 Unknown History promethazine 25 mg tablet 50 mg PO Q6H PRN nausea and 10/18/24 Unknown History vomiting quetiapine 50 mg tablet,extended 50 mg PO QHS mood Unknown History release 24 hr metoclopramide HCl 5 mg tablet 5 mg PO Q8H PRN PRN vamsi sea and 11/04/24 Unknown Rx (Reglan) vomiting 5 days #15 tabs Allergy/AdvReac Type Severity Reaction Status Date / Time adhesive tape Allergy Intermediate Rash Verified 11/05/24 13:59 cephalexin (From Keflex) Allergy Intermediate yeast Verified 11/05/24 13:59 infection morphine Allergy Intermediate Rash Verified 11/05/24 13:59 oxycodone (From Percocet) Allergy Intermediate Rash Verified 11/05/24 13:59 ondansetron AdvReac I BLACK Verified 11/05/24 13:59 OUT AND LOSE CONTROL OF MY BLADDER Family History Mother Anxiety and depression Bipolar disorder PCOS (polycystic ovarian syndrome) Father Valvular heart disease Surgical History History of loop recorder Hx of appendectomy Hx of eye surgery H/O aortic root repair Social History household members: spouse Smoking Status: Current every day smoker tobacco type: e-cigarettes Electronic Cigarette Use: with nicotine alcohol intake: never substance use type: marijuana ROS Constitutional Constitutional: Reports anorexia, malaise and weakness; Denies change in weight, chills, fatigue, fever(s), night sweats or other Eyes Eyes: Denies blurry vision, change in eye color, change in vision, discharge from eye(s), double vision, erythema, eye pain, loss of vision or other ENT HEENT: Denies abnormal hearing, dysphagia, ear pain, epistaxis, headache(s), hearing loss, nasal congestion, nasal discharge, post nasal drip, sinus pressure, sore throat or other Cardiovascular Cardiovascular: Denies chest pain, claudication, dyspnea on exertion, edema, lightheadedness, orthopnea, palpitations, paroxysmal nocturnal dyspnea, rapid heart rate, syncope or other Respiratory/Chest Respiratory/Chest: Denies cough, dyspnea, excessive phlegm production, hemoptysis, productive cough, shortness of breath at rest, shortness of breath with exertion, wheezing or other Gastrointestinal Gastrointestinal: Reports abdominal pain, nausea and vomiting; Denies coffee ground emesis, constipation, diarrhea, dyspepsia, hematemesis, hematochezia, loose stools, melena or other Genitourinary Genitourinary: Reports urinary frequency and other Details: Flank pain ; Denies burning urination, difficulty urinating, dysuria, hematuria, nocturia, urinary hesitancy, urinary incontinence or urinary urgency Musculoskeletal Musculoskeletal: Reports back pain; Denies arthralgias, joint pain, joint stiffness, joint swelling, myalgias, neck pain or other Neurologic Neurologic: Denies abnormal gait, abnormal speech, confusion, disequilibrium, dizziness, focal weakness, headache(s), numbness, paresthesias, seizure-like activity, seizures, syncope, tingling, tremor(s) or other Psychiatric Psychiatric: Reports anxiety and depression; Denies homicidal ideation, suicidal ideation or other Endocrine Endocrinology: Denies change in body appearance, cold intolerance, excessive sweating, heat intolerance, polydipsia, polyuria or other Hematologic/Lymphatic Hematologic/Lymphatic: Denies anemia, easy bleeding, easy bruising, lymphadenopathy or other Allergic/Immunologic Allergic/Immunologic: Denies rhinitis, hives, eczemia, asthma or other Vital Signs Vital Signs Vital Signs: 11/05/24 13:59 11/05/24 15:59 11/05/24 17:00 Temperature 97.2 F L Temperature Source Temporal Pulse Rate 117 H 78 74 Respiratory Rate 22 H 18 18 Blood Pressure 113/78 111/54 L 103/57 L Blood Pressure Mean 89 73 72 Pulse Ox 98 99 96 Oxygen Delivery Method Room Air Room Air Room Air Weight Weight: 76.6 kg Body Mass Index (BMI) 24.9 Physical Exam Const alert, oriented x3 and average body habitus; Negative for no apparent distress, healthy appearing or well nourished Constitutional Narrative: Thin, uncomfortable appearing, white female, does not appear toxic but does appear ill General Appearance: cooperative HEENT normocephalic, head/scalp atraumatic and hearing grossly normal bilaterally; Negative for moist oral mucous membranes HEENT Narrative: Mucous membranes are slightly dry Eyes EOMs intact bilaterally and conjunctivae normal Eyes Narrative: No scleral icterus Neck supple Neck Narrative: Trachea midline, no thyroid enlargement Resp normal respiratory effort, no retractions, no use of accessory muscles and clear to auscultation bilaterally Auscultation: Negative for rales, rhonchi or wheezes Cardio regular rhythm, S1 normal heart sound, S2 normal heart sound, no murmurs, no rub, no gallops and no clicks GI normal to inspection, nondistended, normoactive bowel sounds and soft to palpation GI Narrative: Diffuse tenderness in the lower abdomen Extremity no clubbing, cyanosis or edema Extremity Narrative: 2+ pedal pulses, 2+ radial pulses Neuro oriented x3 and no focal motor deficits Speech: speech normal Psych Psych Narrative: Affect is flat but appropriate for the current situation Results Lab / Micro Data 11/05/24 15:25 11/05/24 18:49 Labs: Laboratory Results - last 24 hr 11/05/24 14:27: POC Glucose 222 H 11/05/24 15:25: WBC 15.2 H, RBC 4.25, Hgb 12.7, Hct 38.0, MCV 89.4, MCH 29.9, MCHC 33.4, RDW Std Deviation 44.6 H, RDW Coeff of Joyce 13.6, Plt Count 201, MPV 11.7, Immature Gran % (Auto) 1.000 H, Neut % (Auto) 88.0 H, Lymph % (Auto) 6.1 L , [place] % (Auto) 4.7, Eos % (Auto) 0.0, Baso % (Auto) 0.2, Absolute Neuts (auto) 13.4 H, Absolute Lymphs (auto) 0.93, Nucleated RBC % 0, Sodium 134, Potassium 3.0 L, Chloride 94 L, Carbon Dioxide 12.8 L, Anion Gap 27 H, BUN 16, Creatinine 0.86, Estim Creat Clear Calc 99.96, Est GFR (MDRD) Non-Af 93, BUN/Creatinine Ratio 18.4, Glucose 251 H, Calcium 8.2, Total Bilirubin 1.15, AST 21, ALT 17, Alkaline Phosphatase 89, Total Protein 6.9, Albumin 4.1, Globulin 2.8, Albumin/Globulin Ratio 1.5, Lipase 13, b-Hydroxybutyric mmol/L 7.1, Serum , Qual NEGATIVE ABG Data ABG results: ABG 11/05/24 15:38 Specimen Type ISABELLE Sample Site Not entered VBG pH 7.43 H VBG pO2 68 H VBG HCO3 14 L VBG Total CO2 14 L VBG O2 Sat (Calc) 95 H VBG Base Excess -11 L POC Mix VBG pCO2 Pt Tmp 20.7 L O2 Delivery Device Not entered Imaging Radiology Impression Gallbladder Ultrasound 11/05/24 14:32 IMPRESSION: Fatty infiltration of the liver. Reading Location: [facility] Assessment & Plan Assessment/Plan (1) Hyperglycemia due to type 1 diabetes mellitus: (2) Vomiting: (3) Diffuse abdominal pain: (4) Dysuria: (5) Compensated metabolic acidosis: (6) Hypokalemia: PLAN: Plan Intractable nausea and vomiting -Suspect multifactorial -Patient is not currently in DKA as she is has a normal pH -Check urine drug screen as patient has a history of hyperemesis related to cannabis use -Aggressive IV fluids -As needed antiemetics -Clear liquids for now and advance diet as able -CT of abdomen pelvis was performed on 11/03/2024 without any significant abnormalities -The right upper quadrant ultrasound was within normal limits -Check UA and if positive send for culture and start antibiotics -Reglan 2.5 mg every 8 hours scheduled -Protonix 40 mg IV push twice daily Leukocytosis -Mild-patient appears to have acute on chronic -UA is pending -Patient does not appear to have infection at this time Anion gap metabolic acidosis -Resolving with IV fluids -Highly suspect starvation ketosis -Anion gap was 27 up serum bicarb of 12.8 on presentation however ABG showed a pH of 7.43 and patient was not tachypneic -Patient to continue insulin pump DM-1 -Not in DKA on presentation -Patient to continue insulin pump -Every 6 hours checks -Clear liquid diet and advance to carb control History of PTSD/borderline personality disorder/insomnia -Continue home doxepin -Continue home Seroquel History of psoriasis -On outpatient immunosuppressant with Skyrizi DVT prophylaxis -Continue subcu enoxaparin CODE STATUS -Full code Charges/Coding Visit Charges Inpatient E&M: 39083 Init Hosp L2
[2024-11-05 18:48] LABS: Allen Test Positive; Base Excess -5 mmol/L (-2 to +2); Bicarbonate 19.9 mmol/L (22-26); Blood Gas Specimen Type ART; Mode Not entered; O2 Delivery Device Room Air; PO2 89 mmHG (75-100); SITE L Radial; SO2 97 % (95-99); Total Carbon Dioxide 21 mmol/L; pCO2 31.1 mmHg (35-45); pH 7.42 (7.35-7.45)
[2024-11-05] MEDS: HYDROmorphone 0.5 MG/0.5 ML SYRINGE IV ×2 (19:15→22:27)
[2024-11-05 19:33] LABS: Lactic Acid < 1.0 mmol/L (0.0-2.0)
[2024-11-05 19:58] LABS: Anion Gap 18 (5-15); BUN 14 mg/dL (4-19); BUN/Creat Ratio 18.5 RATIO (10-20); Calcium,Total 7.5 mg/dL (7.6-11.0); Carbon Dioxide 15.7 mmol/L (21.0-32.0); Chloride 99 mmol/L (98-108); Creatinine, Serum 0.74 mg/dL (0.70-1.20); EST Glomerular Filtration Rate 111 (>60); Estimated Creatinine Clearance 116.17 ml/min (50-250); Glucose 176 mg/dL (70-99); Potassium 4.8 mmol/L (3.3-5.1); Sodium Level 133 mmol/L (133-145)
[2024-11-05] MEDS: proCHLORPERazine 10 MG/2 ML Vial 5 MG IV (21:33)
[2024-11-05] MEDS: Lactated Ringers 1,000 ML 200 ML IV (21:36)
[2024-11-05 21:41] LABS: Mucous, Urine 0 SEEN /hpf (<or=2+)
[2024-11-05 21:44] LABS: Color, Urine Yellow (Yellow); Glucose, Dipstick Normal (Normal); Leukocyte Esterase-Dipstick Negative /ul (Negative); Nitrite-Dipstick Negative (Negative); Occult Blood-Urine Negative /ul (Negative); Protein-Dipstick 15 mg/dl (Negative); Specific Gravity, Urine 1.015 (1.002-1.030); Urine Bilirubin Dipstick Negative (Negative); Urine Clarity Clear (Clear); Urine Urobilinogen 1 mg/dl (Normal)
[2024-11-05 22:07] LABS: Ketone-Dipstick 150 mg/dl (Negative)
[2024-11-05 22:20] LABS: Red Blood Cells-Urine 0 SEEN /hpf (0-5)
[2024-11-05 22:21] LABS: Bacteria 1+ /hpf (None Seen); Squamous Epithelial Cells - UA 0-5 SEEN /hpf (5-10); White Blood Cells 0-5 SEEN /hpf (0-5)
[2024-11-05] MEDS: Metoclopramide 10 MG/2 ML Vial 2.5 MG IV (22:34)
[2024-11-05] MEDS: Pantoprazole Sodium 40 MG in 0.9% Normal Saline (100mL MB+) 100 ML 330 MG IV (22:38)
[2024-11-05 23:12] LABS: Bedside Glucose 109 mg/dL (74-106)
[2024-11-06 02:05] VITALS: BP 94/52; PULSE 60; RESP 15; TEMP 36.7; O2SAT 97
[2024-11-06] MEDS: proCHLORPERazine 10 MG/2 ML Vial 5 MG IV ×2 (02:09→07:35)
[2024-11-06 02:14] LABS: Amphetamine Urine NEGATIVE (<1000 ng/mL); Barbiturate Urine NEGATIVE (< 200 ng/mL); Benzodiazepine Urine NEGATIVE (< 200 ng/mL); Buprenorphine Urine NEGATIVE (< 200 ng/mL); Cocaine Urine NEGATIVE (< 300 ng/mL); Fentanyl, Urine NEGATIVE; Methadone Urine NEGATIVE (< 300 ng/mL); Opiates Urine NEGATIVE (< 300 ng/mL); Oxycodone, Urine NEGATIVE (< 100 ng/mL); PCP Urine NEGATIVE (< 25 ng/mL); THC Urine PREUMTIVE POSITIVE (< 50 ng/mL)
[2024-11-06] MEDS: Lactated Ringers 1,000 ML 200 ML IV ×2 (02:18→07:35)
[2024-11-06 03:05] LABS: Anion Gap 12 (5-15); BUN 11 mg/dL (4-19); BUN/Creat Ratio 16.8 RATIO (10-20); Carbon Dioxide 21.1 mmol/L (21.0-32.0); Chloride 104 mmol/L (98-108); Creatinine, Serum 0.64 mg/dL (0.70-1.20); EST Glomerular Filtration Rate 122 (>60); Estimated Creatinine Clearance 134.33 ml/min (50-250); Glucose 64 mg/dL (70-99); Potassium 3.3 mmol/L (3.3-5.1); Sodium Level 137 mmol/L (133-145)
[2024-11-06 03:18] LABS: Bedside Glucose 129 mg/dL (74-106)
--- NOTE | 2024-11-06 03:55 | NURSING ---
0200: checked blood sugar & noted at 50. pt asymptomatic. gave pt 2 cups of apple juice per her request. rechecked blood [id number]. HS blood sugar was 109. informed Dr Pereira regarding hypoglycemic event. rcvd recommendation to have pt decrease her insulin pump by 50%. basal rate=1.8, verified that pt did decrease to 0.9. will recheck blood sugar at 0600.
[2024-11-06 06:34] LABS: Bedside Glucose 141 mg/dL (74-106)
[2024-11-06 07:29] LABS: Absolute Neutrophil Count 7.6 X10^3/uL (2.0-7.7); Basophil# 0.05 X10^3/uL; Basophil% 0.5 % (0-1); Eosinophil# 0.04 X10^3/uL; Eosinophils% 0.4 % (0-5); Hemoglobin 12.2 g/dL (12.0-15.0); Lymphocyte % 23.4 % (19-41); Mean Corp Hgb Conc 33.9 g/dL (32-36); Mean Corpuscular Hgb 29.7 pg (27.0-32.0); Mean Corpuscular Volume 87.6 fL (81-99); Mean Platelet Vol. 10.8 fl (6.2-12.0); Monocyte# 0.74 X10^3/uL; Monocyte% 6.7 % (0-10); NRBC Flagged by Analyzer 0 % (0-5); Neutrophil # 7.57 X10^3/uL (2.7-7.7); Platelet Count 188 K/mm3 (150-450); RBC Distribution Width CV 13.7 % (11.6-14.6); RBC Distribution Width SD 43.6 fl (35.1-43.9); Red Blood Count 4.11 M/mm3 (4.2-5.4); White Blood Count 11.1 K/mm3 (4.4-11.0)
[2024-11-06 07:47] LABS: Bedside Glucose 50 mg/dL (74-106)
[2024-11-06 07:47] LABS: Bedside Glucose 50 mg/dL (74-106)
[2024-11-06 08:00] VITALS: BP 104/56; PULSE 63; RESP 16; TEMP 36.9; O2SAT 94
[2024-11-06 08:09] LABS: ALB/GLOB Ratio 1.6 RATIO (0.9-2.4); AST(SGOT) 17 U/L (<=31); Alanine Aminotransfer ALT/SGPT 14 U/L (<=34); Albumin, Serum 3.6 g/dL (3.5-5.0); Alkaline Phosphatase 76 U/L (35-104); Anion Gap 11 (5-15); BUN 7 mg/dL (4-19); BUN/Creat Ratio 12.2 RATIO (10-20); Calcium,Total 8.2 mg/dL (7.6-11.0); Carbon Dioxide 22.2 mmol/L (21.0-32.0); Chloride 105 mmol/L (98-108); Creatinine, Serum 0.61 mg/dL (0.70-1.20); EST Glomerular Filtration Rate 123 (>60); Estimated Creatinine Clearance 140.93 ml/min (50-250); Globulin 2.2 g/dL (2.2-4.2); Glucose 122 mg/dL (70-99); Magnesium 2.2 mg/dL (1.5-2.2); Phosphorus 2.1 mg/dL (2.7-4.5); Potassium 3.4 mmol/L (3.3-5.1); Protein, Total 5.9 g/dL (5.9-8.4); Sodium Level 138 mmol/L (133-145); Total Bilirubin 0.91 mg/dL (0.00-1.30)
[2024-11-06 08:38] VITALS: BP 140/90; PULSE 97; O2SAT 97
[2024-11-06] MEDS: HYDROmorphone 0.5 MG/0.5 ML SYRINGE IV ×2 (08:43→14:30)
[2024-11-06] MEDS: 0.9% Saline Lock 10 ML Syringe IV (08:44)
--- NOTE | 2024-11-06 09:30 | CASEMGMT ---
Addendum entered by Bree Grant 11/06/24 15:24: Pt is aware that a walker rx will not be given at this hospital stay. Pt states its ok. Addendum entered by Bree Grant 11/06/24 11:09: TC back to [facility], appt made for December 02 at 2pm. Added to dc instructions. Pt is also aware. Yesterday's appt was a no show. Instructed importance of pt keeping appt or calling to cancel prior to appt if she cannot make it. Pt verbalized understanding. Addendum entered by Bree Grant 11/06/24 10:20: No order received for FWW. TC to [facility], left message requesting a rescheduled appt and with pt times she cannot have the appt. Requested returned call. Original Note: STIVEN SMILEY Assessment: Face to Face with pt for initial transition planning/care coordination assessment. STIVEN SMILEY introduced self and role at [facility], pt voices understanding and consents to assessment. Pt is A&O x4 and answers all questions appropriately at this time. Pt sitting up in bed in no distress. Care providers, pharmacy, and demographics verified/updated. Admitting Dx: intractable N/V Strata Score: 3 PCP:Pt states she was supposed to have established with [facility] yesterday but could not attend appt. Specialists:Concetta, GI; Juan Alberto Endo; Gracie derm; Sheridan, cardio; Mira, cardio; Maia, opth Preferred Pharmacy: [facility] Insurance: My Care [facility] Prescription Benefit: yes LNOK: Tiffanie Donis, sig other Living Arrangements: Pt lives with sig other and her dtr in an upstairs duplex with 16 steps to enter with a rail. Pt reports she is I in ADL and IADLs but has an aide to help with cement sprayer helper and meal prep. Pt denies concerns at home. Transportation: Pt uses the bus for transportation until she gets her license back DME:BP cuff, BGM and insulin pump with sufficient supplies. Pt requesting a FWW. HHC/SNF: Pt has had HHC in the past but cannot recall the name of the agency. Pt has aide services 3 days/wk for 7 hours per day. Pt denies SNF stays. Pt states no concerns with going home at time of dc. Pt is requesting a FWW as she feels weak when she gets sick. Discussed physical therapy for weakness and pt declines the need for this. Provided pt with a verbal local in network list of DME providers should the hospitalist be agreeable to a FWW, pt chose [facility]. Pt would like RN BALJIT to reschedule [facility] appt. She states that she cannot do an appt on 11/11, no mornings on Mondays and and no afternoons on Tuesdays. Pt states no further concerns/needs. CM to follow. Advised pt to ask CM if any further questions/concerns/needs arise, voices understanding. Pt Goal: Home Plan: Home, FWW Jarrod SALEEM CM
[2024-11-06 10:46] LABS: Bedside Glucose 153 mg/dL (74-106)
[2024-11-06] MEDS: Haloperidol 5 MG Tablet PO (10:57)
[2024-11-06] MEDS: QUEtiapine 25 MG Tablet PO (10:57)
[2024-11-06] MEDS: Pantoprazole Sodium 40 MG in 0.9% Normal Saline (100mL MB+) 100 ML 330 MG IV (10:58)
[2024-11-06] MEDS: Enoxaparin 40 MG/0.4 ML Syringe SC (10:58)
--- NOTE | 2024-11-06 13:40 | DCINST_ITS ---
Discharge Instructions Diet Discharge Diet: 2200 Calorie Control Diet DC O2, CPAP, BIPAP needs Home O2 Discharge instructions: No Dressing / Incision Discharge Activity: Return to Normal Activity Weight Bearing Status: Full weight bearing Follow Up Care Test Results: Test results from this visit will be discussed in further detail at your follow- up appointment, if applicable. Discharge Plan Admission Admit Date/Time: 11/05/24 19:13 Primary Reason for Your Visit: uncontrolled nausea/vomiting Attending Provider: John Knapp Primary Care Provider: Care Physician,No Primary Consulting Providers: Kenyetta Suarez Instructions Additional Instructions / Restrictions: You are noncompliant with following up with your medical appointments at [facility], make sure you keep your next medical appointment as [facility] as scheduled Discharge Orders/Prescriptions Prescriptions: New haloperidol 2 mg tablet 2 mg PO TID PRN (Reason: nausea and vomiting) Qty: 14 0RF Rx Instructions: 1 or 2 tabs 3 times a day as needed for nausea and vomiting Continued insulin lispro [Humalog U-100 Insulin] 100 unit/mL solution See Rx Instructions .ROUTE .COMPLEX Patient Comments: use IN THE INSULIN PUMP FOR A TOTAL DAILY DOSE OF 100 UNITS. 06/07/24- PUMP IS NOT CURRENTLY ATTACHED. PT NOT RECIEVING INSULIN. Rx Instructions: 100 U VIA PUMP DAILY; BASAL RATE - 1.8 UNITS/HOUR BOLUS: CARB RATIO- 1 UNIT /10 GRAMS OF CARBS CORRECTION- 1 UNIT FOR EVERY 30MG/DL BLOOD GLUCOSE OVER 120 (DME) pen needle, diabetic [Ultra-Thin II Ins Pen [place]] 29 gauge x 1/2 needle See Rx Instructions .Route Qty: 100 0RF Rx Instructions: As directed Skyrizi 150 mg/mL pen injector 150 mg subcut .[id number] Patient Comments: PT STATES LAST DOSE WAS LESS THAN A MONTH AGO ( OF 11/06/24) albuterol sulfate [Ventolin HFA] 90 mcg/actuation HFA aerosol inhaler 1 - 2 puff inhalation Q4H PRN PRN (Reason: Wheezing) Qty: 1 0RF Insulin Basal Pump (Pt's Own) [Pump, Basal] 1.8 unit subcut UD Qty: 0 0RF prochlorperazine maleate [Compazine] 10 mg tablet 10 mg PO TID PRN (Reason: nausea and vomiting) Qty: 30 0RF promethazine 25 mg tablet 50 mg PO Q6H PRN (Reason: nausea and vomiting) Rx Instructions: one or two every six hours for nausea quetiapine 50 mg tablet extended release 24 hr 50 mg PO QHS doxepin 6 mg tablet 6 mg PO QHS Referrals / Follow Up: Laine Garcia NP-C [Non-Staff] - 12/02/24 2:00 pm Disposition Disposition (needs filled in before D/C Order can be placed): Home, Self Care
[2024-11-06 14:18] VITALS: BP 113/70; PULSE 76; RESP 16; TEMP 36.6; O2SAT 96
[2024-11-06 14:30] LABS: Bedside Glucose 151 mg/dL (74-106)
[2024-11-06] MEDS: Metoclopramide 10 MG/2 ML Vial 2.5 MG IV (14:30)
[2024-11-06 14:35] VITALS: RESP 16
[2024-11-06] MEDS: 0.9% Normal Saline (100mL Bag) 100 ML 15 ML IV (15:15)
[2024-11-06] MEDS: Potassium Phosphate 15 MM in 0.9% Normal Saline (250mL Bag) 250 ML 125 MM IV (15:15)
--- NOTE | 2024-11-06 15:20 | PCM.DC.SUM ---
Providers Date of Admission: 11/05/24 Date of Discharge: 11/06/24 Primary Care Physician: No Primary Care Phys Reason For Visit: INTRACTABLE [place]AUSEA & VOMITING Diagnosis Discharge Diagnosis (1) Hyperglycemia due to type 1 diabetes mellitus: Status: Acute Code(s): E10.65 - Type 1 diabetes mellitus with hyperglycemia (2) Vomiting: Status: Acute Code(s): R11.10 - Vomiting, unspecified (3) Diffuse abdominal pain: Status: Acute Code(s): R10.84 - Generalized abdominal pain (4) Dysuria: Status: Acute Code(s): R30.0 - Dysuria (5) Compensated metabolic acidosis: Status: Acute Code(s): E87.20 - Acidosis, unspecified (6) Hypokalemia: Status: Acute Code(s): E87.6 - Hypokalemia Plan 1. Uncontrolled nausea and vomiting-etiology unclear, possibly secondary to marijuana usage #2 mild anion gap metabolic acidosis #3 type 1 diabetes #4 borderline personality disorder #5 PTSD Medications at Discharge Home Medications insulin lispro 100 unit/mL subcutaneous solution (Humalog U-100 Insulin) See Rx Instructions .Route .COMPLEX 04/27/23 pen needle, diabetic 29 gauge x 1/2 (Ultra-Thin II Insulin Pen [place]) #100 ea 08/10/23 risankizumab-rzaa 150 mg/mL subcutaneous pen injector (Skyrizi) 150 mg subcut .[id number] PSORIASIS 02/07/24 Insulin Basal Pump (Pt's Own) [Pump, Basal] 1.8 unit subcut UD diabetes ##0 06/11/24 prochlorperazine maleate 10 mg tablet (Compazine) 10 mg PO TID PRN nausea and vomiting #30 tabs 06/11/24 albuterol sulfate 90 mcg/actuation aerosol inhaler (Ventolin HFA) 1 - 2 puff inhalation Q4H PRN PRN Wheezing ##1 08/01/24 doxepin 6 mg tablet 6 mg PO QHS insomnia 10/18/24 promethazine 25 mg tablet 50 mg PO Q6H PRN nausea and vomiting 10/18/24 quetiapine 50 mg tablet,extended release 24 hr 50 mg PO QHS mood 10/18/24 haloperidol 2 mg tablet 2 mg PO TID PRN nausea and vomiting #14 tabs 11/06/24 Hospital Course Operations None Procedures None Summary of Care Provided Minutes Spent on Discharge: 31 Hospital Course: This 29-year-old white female was seen in the emergency room at [facility] with a chief complaint of abdominal pain and nausea and vomiting. Patient had a recent CT of her abdomen pelvis performed on 11/03/2024 for complaints of nausea and abdominal pain, the CT did not show anything remarkable. Patient stated since 11/03/2024 she was unable to keep food or liquid down and was told to go to the ER by her impregnator for evaluation. Examination in the ER included labs which showed an elevated white blood cell count of 15.2, BUN was normal at 16 and serum creatinine was 0.86. Glucose was 51, anion gap was 27 and bicarb was 12.8. Patient was admitted to [place] [address] and given IV fluids and labs were monitored. Patient's anion gap closed, she remained nauseated but had no vomiting. She stated to this examiner that if she was smoking medical marijuana on a chronic basis for pain control-[place] report did not show any evidence of the patient getting a prescription for medical marijuana in the [employer]. Patient was given p.o. Haldol to see if it would control her nausea, it had minimal effect and the patient was instructed to follow-up with her impregnator as an outpatient and she was discharged home. Patient was seen and examined on the day of discharge 11/06/2024: On examination she appeared in good health and spirits, she does not appear to be in any distress. Vital signs as documented. Skin warm and dry and without overt rashes. Neck without JVD, thyroid appears normal, trachea is midline, neck is supple. Lungs clear, normal air movement was noted. Heart exam notable for regular rhythm, normal sounds and absence of murmurs, rubs or gallops. Abdomen unremarkable and without evidence of organomegaly, masses, or abdominal aortic enlargement, bowel sounds are present in all 4 quadrants, no abdominal tenderness was noted. Extremities nonedematous, no cyanosis was noted, no clubbing was noted. Neuro: Cranial nerves II through XII are grossly intact, no focal motor deficits were noted, sensation to light touch and pinprick is intact, motor exam 5/5 throughout. Psych: Patient is alert and oriented x3, she does not appear anxious or depressed, she does not appear agitated. Patient was discharged home in stable condition on 11/06/2024. Weight / BMI Weight Weight: 74.7 kg Body Mass Index (BMI) 24.3 ABG / Lab / Microbiology Data 11/06/24 07:17 11/06/24 07:17 Laboratory: Laboratory Results - last 24 hr 11/06/24 17:53: POC Glucose 100 ABG: ABG 11/05/24 11/05/24 15:38 18:45 Specimen Type ISABELLE ART Sample Site Not entered L Radial pH 7.42 Bicarbonate Actual 19.9 L Total CO2 21 Base Excess -5 L O2 Saturation 97 ABG pCO2 31.1 L ABG pO2 89 Iban Test Positive VBG pH 7.43 H VBG pO2 68 H VBG HCO3 14 L VBG Total CO2 14 L VBG O2 Sat (Calc) 95 H VBG Base Excess -11 L POC Mix VBG pCO2 Pt Tmp 20.7 L O2 Delivery Device Not entered Room Air Vent Mode Not entered Radiography Diagnostic Testing: Radiology Impression Gallbladder Ultrasound 11/05/24 14:32 IMPRESSION: Fatty infiltration of the liver. Reading Location: [facility] D/C Instructions Discharge Diet: 2200 Calorie Control Diet Weight Bearing Status: Full weight bearing DC O2, CPAP, BIPAP Needs Home O2 Discharge instructions: No Meaningful Use Info Meaningful Use Meaningful Use Diagnoses (Choose all that apply): None applicable Ischemic Stroke Statin Dosing Therapy Reference: STATIN DOSE THERAPY REFERENCE: * Patients > 75 years receive moderate or high dose statin therapy. * Patients 75 years or YOUNGER should receive HIGH intensity statin dose unless contraindicated. You will be required to document reason for non-treatment if statin daily dose does not meet guidelines. HIGH DOSE STATIN THERAPY DAILY Atorvastatin > than or = to 40 mg Rosuvastatin > than or = to 20 mg Amlodipine + Atorvastatin > than or = to 2.5/40 mg Ezetimibe + Simvastatin 10/80 mg Simvastatin 80mg Discharge Plan Admission Admit Date/Time: 11/05/24 19:13 Primary Reason for Your Visit: uncontrolled nausea/vomiting Attending Provider: John Knapp Primary Care Provider: Care Physician,No Primary Consulting Providers: Kenyetta Suarez Instructions Additional Instructions / Restrictions: You are noncompliant with following up with your medical appointments at [facility], make sure you keep your next medical appointment as [facility] as scheduled Discharge Orders/Prescriptions Prescriptions: New haloperidol 2 mg tablet 2 mg PO TID PRN (Reason: nausea and vomiting) Qty: 14 0RF Rx Instructions: 1 or 2 tabs 3 times a day as needed for nausea and vomiting Continued insulin lispro [Humalog U-100 Insulin] 100 unit/mL solution See Rx Instructions .ROUTE .COMPLEX Patient Comments: use IN THE INSULIN PUMP FOR A TOTAL DAILY DOSE OF 100 UNITS. 06/07/24- PUMP IS NOT CURRENTLY ATTACHED. PT NOT RECIEVING INSULIN. Rx Instructions: 100 U VIA PUMP DAILY; BASAL RATE - 1.8 UNITS/HOUR BOLUS: CARB RATIO- 1 UNIT /10 GRAMS OF CARBS CORRECTION- 1 UNIT FOR EVERY 30MG/DL BLOOD GLUCOSE OVER 120 (DME) pen needle, diabetic [Ultra-Thin II Ins Pen [place]] 29 gauge x 1/2 needle See Rx Instructions .Route Qty: 100 0RF Rx Instructions: As directed Skyrizi 150 mg/mL pen injector 150 mg subcut .[id number] Patient Comments: PT STATES LAST DOSE WAS LESS THAN A MONTH AGO ( OF 11/06/24) albuterol sulfate [Ventolin HFA] 90 mcg/actuation HFA aerosol inhaler 1 - 2 puff inhalation Q4H PRN PRN (Reason: Wheezing) Qty: 1 0RF Insulin Basal Pump (Pt's Own) [Pump, Basal] 1.8 unit subcut UD Qty: 0 0RF prochlorperazine maleate [Compazine] 10 mg tablet 10 mg PO TID PRN (Reason: nausea and vomiting) Qty: 30 0RF promethazine 25 mg tablet 50 mg PO Q6H PRN (Reason: nausea and vomiting) Rx Instructions: one or two every six hours for nausea quetiapine 50 mg tablet extended release 24 hr 50 mg PO QHS doxepin 6 mg tablet 6 mg PO QHS Referrals / Follow Up: Laine Garcia NP-C [Non-Staff] - 12/02/24 2:00 pm Disposition Disposition (needs filled in before D/C Order can be placed): Home, Self Care Charges/Coding Visit Charges Inpatient E&M: 25045 Disch Hosp >30min
--- NOTE | 2024-11-06 15:27 | NURSING ---
message relayed to patient from Dr. Knapp: POC discharge her after kphos is complete. pt must keep appointment made at the [facility], concerned she had not shown up at previous appointments, he looked her up on [employer] report and it did not list that she had a medical marijuana card. pt agitated stating she can show proof of her card. Explained to patient was only relaying the message from the physician.
--- NOTE | 2024-11-06 15:34 | CASEMGMT ---
Social Work- KENISHA faxed discharge instructions to Leandra Macias, [facility] Home renal case manager. KENISHA called to follow up and spoke with Leandra to confirm receipt. MICHELLE Martinez
--- NOTE | 2024-11-06 16:28 | NURSING ---
All documentation by certified nursing assistant Hansel Blankenship reviewed by nursing technician Lin WATSONN, RN.
[2024-11-06 17:54] VITALS: BP 116/73; PULSE 81; RESP 16; TEMP 36.9; O2SAT 96
[2024-11-06 19:15] LABS: Bedside Glucose 100 mg/dL (74-106)
== END 2024-11-06 18:09 | disposition home or self-care (01) | DRG 392 ==
LOC: ED 17:51 → MS3 19:59
PROVIDERS: Admitting Provider Internal Medicine; Emergency Provider Emergency Medicine; Visit Provider Internal Medicine
DX: R11.2 Nausea with vomiting, unspecified (principal); E10.65 Type 1 diabetes mellitus with hyperglycemia; K76.0 Fatty (change of) liver, not elsewhere classified; F32.A Depression, unspecified; F60.3 Borderline personality disorder; E87.6 Hypokalemia; F17.290 Nicotine dependence, other tobacco product, uncomplicated; Z79.4 Long term (current) use of insulin; G47.00 Insomnia, unspecified; R30.0 Dysuria; R10.84 Generalized abdominal pain; F43.10 Post-traumatic stress disorder, unspecified; Z79.899 Other long term (current) drug therapy; Z96.41 Presence of insulin pump (external) (internal)
CPT/HCPCS: 36415; 36600; 74177; 76705; 80048; 80053; 80307; 81001; 82010; 82803; 82962; 83605; 83690; 83735; 84100; 84703; 85025; 94668; 96361; 96372; 96374; 96375; 97802; 99284; 99285; 99406; Q9967; A4216; J2405

== ENCOUNTER → 2024-11-28 | Outpatient (CLI) | payer MEDICARE, MEDICAID, SELFPAY ==
[2024-11-28 16:37] LABS: Absolute Lymphocyte Count 1.62 X10^3/uL (0.83-4.51); Absolute Neutrophil Count 4.6 X10^3/uL (2.0-7.7); Basophil# 0.04 X10^3/uL; Basophil% 0.6 % (0-1); Eosinophil# 0.06 X10^3/uL; Eosinophils% 0.9 % (0-5); Hematocrit 37.8 % (37-47); Hemoglobin 12.5 g/dL (12.0-15.0); Lymphocyte # 1.62 X10^3/ul (0.83-4.51); Lymphocyte % 23.8 % (19-41); Mean Corp Hgb Conc 33.1 g/dL (32-36); Mean Corpuscular Hgb 29.2 pg (27.0-32.0); Mean Corpuscular Volume 88.3 fL (81-99); Mean Platelet Vol. 12.5 fl (6.2-12.0); Monocyte# 0.43 X10^3/uL; Monocyte% 6.3 % (0-10); NRBC Flagged by Analyzer 0 % (0-5); Neutrophil # 4.64 X10^3/uL (2.7-7.7); Neutrophil % 68.1 % (47-70); POSITIVE COUNT YES; Platelet Count 135 K/mm3 (150-450); RBC Distribution Width CV 13.3 % (11.6-14.6); RBC Distribution Width SD 43.4 fl (35.1-43.9); Red Blood Count 4.28 M/mm3 (4.2-5.4); White Blood Count 6.8 K/mm3 (4.4-11.0)
[2024-11-28 17:00] LABS: Hemoglobin A1c 10.1 % (<=5.6)
[2024-11-28 17:10] LABS: Iron 71 ug/dL (50-170); Iron Binding Capacity,Total 248 ug/dL (250-450); Iron Binding Capacity,Unsat 177 ug/dL (228-428)
[2024-11-28 17:30] LABS: ALB/GLOB Ratio 1.8 RATIO (0.9-2.4); AST(SGOT) 16 U/L (<=31); Alanine Aminotransfer ALT/SGPT 6 U/L (<=34); Albumin, Serum 4.1 g/dL (3.5-5.0); Alkaline Phosphatase 68 U/L (35-104); Anion Gap 11 (5-15); BUN 12 mg/dL (4-19); BUN/Creat Ratio 19.9 RATIO (10-20); Calcium,Total 9.1 mg/dL (7.6-11.0); Carbon Dioxide 20.4 mmol/L (21.0-32.0); Chloride 107 mmol/L (98-108); Creatinine, Serum 0.59 mg/dL (0.70-1.20); EST Glomerular Filtration Rate 124 (>60); Globulin 2.3 g/dL (2.2-4.2); Glucose 222 mg/dL (70-99); Potassium 4.2 mmol/L (3.3-5.1); Protein, Total 6.4 g/dL (5.9-8.4); Sodium Level 138 mmol/L (133-145); Total Bilirubin 0.29 mg/dL (0.00-1.30)
[2024-11-28 17:31] LABS: CORTISOL AM 5.66 ug/dL (6.02-18.40); Thyroid Stim Hormone (TSH) 0.451 uIU/mL (0.300-4.200); Vitamin D,25 Hydroxy 15.7 ng/mL (30-100)
[2024-11-28 21:47] LABS: Differential Indicated SCAN CRITERIA MET
[2024-11-28 21:49] LABS: Platelet Estimate ADEQUATE (ADEQ)
== END | disposition home or self-care (01) ==
PROVIDERS: Visit Provider Nurse Practitioner
DX: F43.12 Post-traumatic stress disorder, chronic (principal)
CPT/HCPCS: 36415; 80053; 82306; 82533; 83036; 83540; 83550; 84443; 85025

== ENCOUNTER 2024-12-14 19:17 | Observation (INO) | payer MEDICARE, MEDICAID, SELFPAY ==
[2024-12-14] VITALS (19 sets, daily range): BP systolic 111–144; BP diastolic 55–110; PULSE 53–104; RESP 12–35; TEMP 36.7–36.9; O2SAT 95–100; BMI 25.9; BMI 24.8
--- NOTE | 2024-12-14 19:34 | EX.ED.DYSGE1 ---
HPI History of Present Illness Chief Complaint: Nausea/Vomiting Informant: patient Narrative Narrative: History of gastroparesis and diabetes. Nausea and vomiting throughout the day at least a dozen times no hematemesis. No diarrhea. Abdominal discomfort due to vomiting. History of marijuana use states has a medical card. She states she has vomiting when she does not have supply of her marijuana. Reports her last use was 4 days ago. Sugars in the 300s. States it goes high when she has her episodes. She has tried hot showers, she took her last p.o. Haldol medication this morning. Prior similar symptoms: Yes PFSH [facility] Medical History Depression UTI (urinary tract infection) Type 1 diabetes Metabolic acidosis Leukocytosis DKA, type 1 Intractable abdominal pain Intractable nausea and vomiting Panic disorder Major depressive disorder, recurrent severe without psychotic features Diabetic gastroparesis Substance abuse Kidney stones Kidney disease Smoker Intractable vomiting Type 1 diabetes Marfan syndrome PTSD (post-traumatic stress disorder) Borderline personality disorder Home Medications ?Medication ?Instructions ?Recorded ?Last Taken ?Type insulin lispro 100 unit/mL See Rx Instructions .Route .COMPLEX 04/27/23 06/06/24 History subcutaneous solution (Humalog U-100 Insulin) pen needle, diabetic 29 gauge x #100 ea 08/10/23 Unknown Rx 1/2 (Ultra-Thin II Insulin Pen [place]) risankizumab-rzaa 150 mg/mL 150 mg subcut .[id number] PSORIASIS 02/07/24 Unknown History subcutaneous pen injector (Skyrizi) Insulin Basal Pump (Pt's Own) 1.8 unit subcut UD diabetes ##0 06/11/24 Unknown Rx [Pump, Basal] albuterol sulfate 90 mcg/actuation 1 - 2 puff inhalation Q4H PRN PRN 08/01/24 Unknown Rx aerosol inhaler (Ventolin HFA) Wheezing ##1 doxepin 6 mg tablet 6 mg PO QHS insomnia 10/18/24 Unknown History promethazine 25 mg tablet 50 mg PO Q6H PRN nausea and 10/18/24 Unknown History vomiting quetiapine 50 mg tablet,extended 50 mg PO QHS mood 10/18/24 Unknown History release 24 hr haloperidol 2 mg tablet 2 mg PO TID PRN nausea and 11/06/24 Unknown Rx vomiting #14 tabs cholecalciferol (vitamin D3) 1,250 1,250 mcg PO QWEEK 12/14/24 Unknown History mcg (50,000 unit) capsule metoclopramide HCl 5 mg tablet 5 mg PO Q8H PRN PRN nausea/vomiting 12/14/24 Unknown History plecanatide 3 mg tablet (Trulance) 3 mg PO DAILY 12/14/24 Unknown History potassium, sodium phosphates 280 1 packet PO TID 12/14/24 Unknown History mg-160 mg-250 mg oral powder packet Allergy/AdvReac Type Severity Reaction Status Date / Time adhesive tape Allergy Intermediate Rash Verified 12/14/24 19:18 cephalexin (From Keflex) Allergy Intermediate yeast Verified 12/14/24 19:18 infection morphine Allergy Intermediate Rash Verified 12/14/24 19:18 oxycodone (From Percocet) Allergy Intermediate Rash Verified 12/14/24 19:18 ondansetron AdvReac I BLACK Verified 12/14/24 19:18 OUT AND LOSE CONTROL OF MY BLADDER Family History Mother Anxiety and depression Bipolar disorder PCOS (polycystic ovarian syndrome) Father Valvular heart disease Surgical History History of loop recorder Hx of appendectomy Hx of eye surgery H/O aortic root repair Social History household members: spouse Smoking Status: Current every day smoker tobacco type: e-cigarettes Electronic Cigarette Use: with nicotine alcohol intake: never substance use type: marijuana ROS ROS ED Constitutional Constitutional ED: Denies chills, fever(s) or sweats ENT ENT ED: Denies sore throat Cardiovascular Cardiovascular: Denies chest pain, leg edema, palpitations or racing heartbeat Respiratory/Chest Respiratory/Chest: Denies cough, dyspnea or dyspnea on exertion Gastrointestinal Gastrointestinal: Reports abdominal pain, nausea and vomiting; Denies diarrhea Genitourinary Genitourinary ED: Denies dysuria, hematuria or urinary frequency Musculoskeletal Musculoskeletal: Denies back pain, extremity pain or neck pain Integumentary Denies rash or wounds Neurologic Neurologic: Denies headache(s), paresthesias or weakness EXAM Physical Exam Const Vital Signs: 12/14/24 19:18 12/14/24 20:05 12/14/24 20:06 Temperature 98.5 F Temperature Source Oral Pulse Rate 104 H 85 Respiratory Rate 24 H 16 Respiratory Effort Respiratory Pattern Blood Pressure 144/110 H 132/81 H Blood Pressure Mean 121 98 Pulse Ox 100 98 96 Oxygen Delivery Method Room Air 12/14/24 20:15 12/14/24 20:34 12/14/24 20:38 Temperature Temperature Source Pulse Rate 84 Respiratory Rate 35 H Respiratory Effort Respiratory Pattern Blood Pressure 127/93 H Blood Pressure Mean 104 Pulse Ox 98 Oxygen Delivery Method 12/14/24 20:42 12/14/24 20:51 12/14/24 21:01 Temperature Temperature Source Pulse Rate 88 95 Respiratory Rate 16 23 H Respiratory Effort Respiratory Pattern Blood Pressure 127/93 H 130/89 H Blood Pressure Mean 104 101 Pulse Ox 99 Oxygen Delivery Method Room Air 12/14/24 21:21 12/14/24 21:22 12/14/24 21:23 Temperature 98.1 F Temperature Source Pulse Rate 74 77 Respiratory Rate 16 20 H Respiratory Effort Respiratory Pattern Blood Pressure 130/89 H 133/97 H Blood Pressure Mean 102 109 Pulse Ox 99 98 98 Oxygen Delivery Method Room Air 12/14/24 21:30 12/14/24 21:45 12/14/24 22:09 Temperature Temperature Source Pulse Rate 89 77 Respiratory Rate 16 19 H Respiratory Effort Respiratory Pattern Blood Pressure 130/77 H Blood Pressure Mean 93 Pulse Ox 98 98 99 Oxygen Delivery Method Room Air 12/14/24 22:10 12/14/24 22:15 12/14/24 22:30 Temperature Temperature Source Pulse Rate 53 L 87 87 Respiratory Rate 23 H 19 H 20 H Respiratory Effort Respiratory Pattern Blood Pressure 111/55 L 125/72 H Blood Pressure Mean 72 88 Pulse Ox 99 95 97 Oxygen Delivery Method Room Air 12/14/24 22:42 Temperature Temperature Source Pulse Rate Respiratory Rate Respiratory Effort Normal Respiratory Pattern Normal Blood Pressure Blood Pressure Mean Pulse Ox Oxygen Delivery Method Positive well nourished and well developed Constitutional Narrative: Nontoxic, had emesis during my evaluation. No bloody emesis noted. General Appearance ED: well developed HEENT Reports moist mucous membranes normocephalic and atraumatic Eyes General Eye ED: Yes normal appearance of both eyes Neck full ROM Chest Wall Chest: Negative for tenderness Resp normal respiratory effort and normal air movement Effort and Inspection: symmetric chest movement; Negative for respiratory distress Cardio regular rhythm and no murmurs Peripheral Pulses: pulses 2+ throughout GI normal to inspection, nondistended, normoactive bowel sounds and non-tender GI Narrative: Soft no guarding or rebound noted. Palpation: Negative for guarding or rebound tenderness present Extremity normal to inspection General Extremety ED: Negative for edema or tenderness General Extremity: Negative for edema Neuro oriented x3 and no sensory deficits noted Sensorium / Orientation: awake and alert Skin no rashes or lesions noted and no wounds MDM MDM MDM Narrative Medical decision making narrative: Interventions / MDM: Differential diagnosis: Diabetic ketoacidosis, intractable nausea and vomiting, history of gastroparesis, history of marijuana use Diagnosis considered but do not suspect: No clinical colitis, pancreatitis however labs normal. My EKG interpretation: N/A Imaging independently reviewed and interpreted by myself: N/A External documents reviewed: N/A Test considered but not ordered:N/A ED course: Blood glucose 352 per nursing. Nausea vomit throughout the day. Slight tachycardia. IV established through the med port. Fluids were given. Will rule out DKA with labs, fluids ordered, Haldol IV, she agrees to try capsaicin topical. Will reevaluate. 2039: Labs white count 15.9 likely reactive with the nonsurgical abdomen. Lipase normal at 13 liver enzymes normal creatinine normal 0.7. Patient glucose of 329 elevated anion gap of 17, beta hydroxy butyrate elevated at 1.9. Given additional 1 L of fluids. Lab findings consistent with DKA. Continued vomiting per nursing IV Compazine ordered. CO2 at 15, VBG ordered pH 7.45 CO2 21, bicarb 15. 2049: Abdomen remains benign on examination. Will order for insulin drip to get started. Will discuss with hospitalist for admission. 2057: I spoke with Dr. Encarnacion, he knows the patient well also. He would like to put a hold on insulin drip at this time as there is only a mild gap. Will continue fluids. Request 10 units of Humalog which be ordered. Will reevaluate her after more fluids and time with additional treatment prior to needing admission. 2217: Nearly 2 L of fluid in. Reevaluate patient still nauseated she states she had emesis after the Compazine. Urine with ketones. Will order IV Ativan. Fluids will be continued. We discussed with Dr. Encarnacion, admit to the medical floor for further management. Re-evaluation: stable Disposition discussed with patient/family/significant other: Patient Case discussed with consulting clinician: Hospitalist This note was generated with [employer] dictation software. It may contain incorrect words, spelling, and punctuation that were not noted in checking the note before signing. Lab Data Attestation: I reviewed the patient's lab results. Labs: Laboratory Results - last 24 hr 12/14/24 12/14/24 12/14/24 19:21 19:35 21:00 WBC 15.9 H RBC 4.62 Hgb 13.7 Hct 39.9 MCV 86.4 MCH 29.7 MCHC 34.3 RDW Std Deviation 40.1 RDW Coeff of Joyce 12.9 Plt Count 159 MPV 12.6 H Immature Gran % (Auto) 0.800 Neut % (Auto) 78.7 H Lymph % (Auto) 15.1 L Marion % (Auto) 4.9 Eos % (Auto) 0.1 Baso % (Auto) 0.4 Absolute Neuts (auto) 12.5 H Absolute Lymphs (auto) 2.40 Nucleated RBC % 0 Sodium 136 Potassium 3.6 Chloride 104 Carbon Dioxide 15.1 L Anion Gap 17 H BUN 13 Creatinine 0.74 Estim Creat Clear Calc 125.65 Est GFR (MDRD) Non-Af 112 BUN/Creatinine Ratio 18.2 Glucose 329 H Calcium 8.2 Total Bilirubin 0.92 AST 16 ALT 11 Alkaline Phosphatase 76 Total Protein 6.5 Albumin 4.2 Globulin 2.4 Albumin/Globulin Ratio 1.8 Lipase 13 b-Hydroxybutyric mmol/L 1.9 Serum , Qual NEGATIVE Urine Color Yellow Urine Clarity Clear Urine pH 6.0 Ur Specific Maxwell 1.015 Urine Protein 15 H Urine Glucose (UA) 1000 H Urine Ketones 150 A* Urine Occult Blood Negative Urine Nitrite Negative Urine Bilirubin Negative Urine Urobilinogen Normal Ur Leukocyte Esterase Negative Urine RBC 0 SEEN Urine WBC 0 SEEN Ur Squamous Epith Cells 0-5 SEEN Urine Bacteria 0 SEEN Urine Mucus 0 SEEN POC Glucose 352 H 12/14/24 12/14/24 21:09 22:25 WBC RBC Hgb Hct MCV MCH MCHC RDW Std Deviation RDW Coeff of Joyce Plt Count MPV Immature Gran % (Auto) Neut % (Auto) Lymph % (Auto) Marion % (Auto) Eos % (Auto) Baso % (Auto) Absolute Neuts (auto) Absolute Lymphs (auto) Nucleated RBC % Sodium Potassium Chloride Carbon Dioxide Anion Gap BUN Creatinine Estim Creat Clear Calc Est GFR (MDRD) Non-Af BUN/Creatinine Ratio Glucose Calcium Total Bilirubin AST ALT Alkaline Phosphatase Total Protein Albumin Globulin Albumin/Globulin Ratio Lipase b-Hydroxybutyric mmol/L Serum , Qual Urine Color Urine Clarity Urine pH Ur Specific Maxwell Urine Protein Urine Glucose (UA) Urine Ketones Urine Occult Blood Urine Nitrite Urine Bilirubin Urine Urobilinogen Ur Leukocyte Esterase Urine RBC Urine WBC Ur Squamous Epith Cells Urine Bacteria Urine Mucus POC Glucose 291 H 186 H ABG Data ABG results: ABG 12/14/24 20:40 Specimen Type ISABELLE Sample Site Not entered VBG pH 7.45 H VBG pO2 43 H VBG HCO3 15 L VBG Total CO2 16 L VBG O2 Sat (Calc) 83 H VBG Base Excess -9 L POC Mix VBG pCO2 Pt Tmp 21.7 L O2 Delivery Device Room Air Discharge Plan Triage Chief Complaint: Nausea/Vomiting ED Provider: Olvin Ibarra Dx/Rx/DC Orders Clinical Impression: Intractable cyclical vomiting with nausea, Diabetes mellitus with hyperglycemia, Hx of diabetic gastroparesis, History of marijuana use Prescriptions: No Action insulin lispro [Humalog U-100 Insulin] 100 unit/mL solution See Rx Instructions .ROUTE .COMPLEX Patient Comments: use IN THE INSULIN PUMP FOR A TOTAL DAILY DOSE OF 100 UNITS. Rx Instructions: 100 U VIA PUMP DAILY; BASAL RATE - 1.8 UNITS/HOUR BOLUS: CARB RATIO- 1 UNIT /10 GRAMS OF CARBS CORRECTION- 1 UNIT FOR EVERY 30MG/DL BLOOD GLUCOSE OVER 120 (DME) pen needle, diabetic [Ultra-Thin II Ins Pen [place]] 29 gauge x 1/2 needle See Rx Instructions .Route Qty: 100 0RF Rx Instructions: As directed Skyrizi 150 mg/mL pen injector 150 mg subcut .[id number] albuterol sulfate [Ventolin HFA] 90 mcg/actuation HFA aerosol inhaler 1 - 2 puff inhalation Q4H PRN PRN (Reason: Wheezing) Qty: 1 0RF haloperidol 2 mg tablet 2 mg PO TID PRN (Reason: nausea and vomiting) Qty: 14 0RF Rx Instructions: 1 or 2 tabs 3 times a day as needed for nausea and vomiting metoclopramide HCl 5 mg tablet 5 mg PO Q8H PRN PRN (Reason: nausea/vomiting) cholecalciferol (vitamin D3) 1,250 mcg (50,000 unit) capsule 1,250 mcg PO QWEEK potassium, sodium phosphates 280-160-250 mg powder in packet 1 packet PO TID Trulance 3 mg tablet 3 mg PO DAILY Insulin Basal Pump (Pt's Own) [Pump, Basal] 1.8 unit subcut UD Qty: 0 0RF promethazine 25 mg tablet 50 mg PO Q6H PRN (Reason: nausea and vomiting) Rx Instructions: one or two every six hours for nausea quetiapine 50 mg tablet extended release 24 hr 50 mg PO QHS doxepin 6 mg tablet 6 mg PO QHS Primary Care Provider: Care Physician,No Primary Referrals: Care Physician,No Primary [Primary Care Provider] - Print Language: [place] Disposition Disposition: Acute Care Hospital [facility]
[2024-12-14 19:39] LABS: Bedside Glucose 352 mg/dL (74-106)
[2024-12-14] MEDS: 0.9% Normal Saline (1000mL) 1,000 ML 1000 ML IV (19:46)
[2024-12-14] MEDS: Haloperidol Lactate 5 MG/ML Vial 2 MG IV (19:46)
[2024-12-14 19:54] LABS: Absolute Neutrophil Count 12.5 X10^3/uL (2.0-7.7); Basophil# 0.07 X10^3/uL; Basophil% 0.4 % (0-1); Eosinophil# 0.01 X10^3/uL; Eosinophils% 0.1 % (0-5); Hematocrit 39.9 % (37-47); Hemoglobin 13.7 g/dL (12.0-15.0); Lymphocyte % 15.1 % (19-41); Mean Corp Hgb Conc 34.3 g/dL (32-36); Mean Corpuscular Hgb 29.7 pg (27.0-32.0); Mean Corpuscular Volume 86.4 fL (81-99); Mean Platelet Vol. 12.6 fl (6.2-12.0); Monocyte# 0.78 X10^3/uL; Monocyte% 4.9 % (0-10); NRBC Flagged by Analyzer 0 % (0-5); Neutrophil # 12.48 X10^3/uL (2.7-7.7); Neutrophil % 78.7 % (47-70); Platelet Count 159 K/mm3 (150-450); RBC Distribution Width CV 12.9 % (11.6-14.6); RBC Distribution Width SD 40.1 fl (35.1-43.9); Red Blood Count 4.62 M/mm3 (4.2-5.4); White Blood Count 15.9 K/mm3 (4.4-11.0)
[2024-12-14 19:57] LABS: Internal QC Validated? YES +Cl - CLEAR BKGD; Pregnancy, Serum, hCG Quali. NEGATIVE Negative
[2024-12-14] MEDS: Capsaicin 0.025% 1 APPLIC Tube TOPICAL (20:02)
[2024-12-14 20:18] LABS: ALB/GLOB Ratio 1.8 RATIO (0.9-2.4); AST(SGOT) 16 U/L (<=31); Alanine Aminotransfer ALT/SGPT 11 U/L (<=34); Albumin, Serum 4.2 g/dL (3.5-5.0); Alkaline Phosphatase 76 U/L (35-104); Anion Gap 17 (5-15); BETA-HYDROXYBUTYRATE 1.9 mmol/L (0.0-0.3); BUN 13 mg/dL (4-19); BUN/Creat Ratio 18.2 RATIO (10-20); Calcium,Total 8.2 mg/dL (7.6-11.0); Carbon Dioxide 15.1 mmol/L (21.0-32.0); Chloride 104 mmol/L (98-108); Creatinine, Serum 0.74 mg/dL (0.70-1.20); EST Glomerular Filtration Rate 112 (>60); Estimated Creatinine Clearance 125.65 ml/min (50-250); Globulin 2.4 g/dL (2.2-4.2); Glucose 329 mg/dL (70-99); Lipase 13 U/L (13-75); Potassium 3.6 mmol/L (3.3-5.1); Protein, Total 6.5 g/dL (5.9-8.4); Sodium Level 136 mmol/L (133-145); Total Bilirubin 0.92 mg/dL (0.00-1.30)
[2024-12-14] MEDS: 0.9% Normal Saline (1000mL) 1,000 ML 999 ML IV (20:32)
[2024-12-14 20:44] LABS: Blood Gas Specimen Type VEN; O2 Delivery Device Room Air; SITE Not entered; VBG BASE EXCESS -9 mmol/L (-1.0-3.5); VBG Bicarbonate 15 mmol/L (22-26); VBG PO2 43 mmHg (25-40); VBG SO2 83 % (50-70); VBG TCO2 16 mmol/L (23-33); VBG pCO2 21.7 mmHg (41-51); VBG pH 7.45 (7.32-7.42)
[2024-12-14 21:13] LABS: Bacteria 0 SEEN /hpf (None Seen); Mucous, Urine 0 SEEN /hpf (<or=2+); Red Blood Cells-Urine 0 SEEN /hpf (0-5); White Blood Cells 0 SEEN /hpf (0-5)
[2024-12-14] MEDS: Insulin Lispro 100 UNIT/ML INSULN.PEN 10 UNIT SC (21:13)
[2024-12-14] MEDS: proCHLORPERazine 10 MG/2 ML Vial 5 MG IV (21:16)
[2024-12-14 21:36] LABS: Color, Urine Yellow (Yellow); Glucose, Dipstick 1000 mg/dl (Normal); Ketone-Dipstick 150 mg/dl (Negative); Leukocyte Esterase-Dipstick Negative /ul (Negative); Nitrite-Dipstick Negative (Negative); Occult Blood-Urine Negative /ul (Negative); Protein-Dipstick 15 mg/dl (Negative); Specific Gravity, Urine 1.015 (1.002-1.030); Urine Bilirubin Dipstick Negative (Negative); Urine Clarity Clear (Clear); Urine Urobilinogen Normal (Normal)
[2024-12-14 21:44] LABS: Squamous Epithelial Cells - UA 0-5 SEEN /hpf (5-10)
[2024-12-14 21:44] LABS: Bedside Glucose 291 mg/dL (74-106)
--- NOTE | 2024-12-14 22:00 | ED.RN ---
ATTEMPTED TO RE-PLACE MONITORING EQUIPMENT ON PT. TO RECOLLECT VITAL SIGNS. PT. CONTINUED TO REMOVE EQUIPMENT AFTER IT WAS IN PLACE. PT. WAS ENCOURAGED TO HAVE IT REMAIN IN PLACE D/T ILLNESS.
[2024-12-14] MEDS: Lorazepam 2 MG/ML WCH Syringe 1 MG IV (22:34)
[2024-12-14] MEDS: 0.9% Normal Saline (1000mL) 1,000 ML 150 ML IV (22:35)
--- NOTE | 2024-12-14 22:35 | ED.RN ---
PT. FOUND OF MONITORING EQUIPMENT D/T TURING SIDE TO SIDE IN BED. PLACED BACK ON MONITOR
[2024-12-14 22:43] LABS: Bedside Glucose 186 mg/dL (74-106)
--- NOTE | 2024-12-14 22:44 | PCM.HP.STD ---
HPI - General General Date of Admission: 12/14/24 Date of Service: 12/14/24 Chief Complaint: Nausea and vomiting HPI Narrative THEODORE VILLA, is a 29 F who presented to [facility] ED on 12/14/2024 with nausea and vomiting. Patient has history of type 1 diabetes with diabetic gastroparesis and recurrent episodes of intractable nausea with vomiting leading to recurrent hospitalizations. She was last hospitalized here from 11/05-11/06 for this. Is suspected that her intractable nausea and vomiting is multifactorial from diabetic gastroparesis and hyperemesis related to cannabis use. Patient noted today that she had vomited about a dozen times today prior to arriving to the ED. Has medical marijuana card but states she ran out of her marijuana supply recently with last use being 4 days ago. States that she will have episodes of vomiting like this when she is not using marijuana. She tried hot showers earlier today as well as the p.o. Haldol that at bedside help with her from prior admission without improvement, so she came into the ED for further evaluation. In the ED she was mildly tachycardic to the 100s and mildly hypertensive, otherwise hemodynamically stable. Labs notable for WBC count 15, bicarb 15, anion gap 17, glucose 329. VBG showed pH 7.45. She had active nausea with vomiting when she arrived. Denied abdominal pain and prior CT scans of the abdomen pelvis in September and October were unremarkable so no CT was obtained. She was treated with several remedies in the ED including 2 L of IV fluids, Haldol, Ativan, Zofran, Compazine and capsaicin with limited improvement. Was also given a dose of Humalog 10 units. Repeat BMP in the ED showed improved glucose and anion gap, did also show low phosphorus of 1.4 with borderline low potassium and magnesium. However, patient continued to have severe nausea with episodes of vomiting, so hospitalist was contacted for admission. I saw the patient at bedside in the ED. Patient was laying on her side and appeared pale and fatigued. She was somewhat somnolent as well presumed secondary to the medications she was given. She reported continued nausea at this time. She denied any abdominal pain. She denied any fevers or chills. She has used her insulin pump here on prior admissions and was agreeable to doing this again during this admission. No other acute concerns at this time. [facility] Medical History Depression UTI (urinary tract infection) Type 1 diabetes Metabolic acidosis Leukocytosis DKA, type 1 Intractable abdominal pain Intractable nausea and vomiting Panic disorder Major depressive disorder, recurrent severe without psychotic features Diabetic gastroparesis Substance abuse Kidney stones Kidney disease Smoker Intractable vomiting Type 1 diabetes Marfan syndrome PTSD (post-traumatic stress disorder) Borderline personality disorder Home Medications ?Medication ?Instructions ?Recorded ?Last Taken ?Type insulin lispro 100 unit/mL See Rx Instructions .Route .COMPLEX 04/27/23 06/06/24 History subcutaneous solution (Humalog U-100 Insulin) pen needle, diabetic 29 gauge x #100 ea 08/10/23 Unknown Rx 1/2 (Ultra-Thin II Insulin Pen [place]) risankizumab-rzaa 150 mg/mL 150 mg subcut .q1ctipau PSORIASIS 02/07/24 Unknown History subcutaneous pen injector (Skyrizi) Insulin Basal Pump (Pt's Own) 1.8 unit subcut UD diabetes ##0 06/11/24 Unknown Rx [Pump, Basal] albuterol sulfate 90 mcg/actuation 1 - 2 puff inhalation Q4H PRN PRN 08/01/24 Unknown Rx aerosol inhaler (Ventolin HFA) Wheezing ##1 doxepin 6 mg tablet 6 mg PO QHS insomnia 10/18/24 Unknown History promethazine 25 mg tablet 50 mg PO Q6H PRN nausea and 10/18/24 Unknown History vomiting quetiapine 50 mg tablet,extended 50 mg PO QHS mood 10/18/24 Unknown History release 24 hr haloperidol 2 mg tablet 2 mg PO TID PRN nausea and 11/06/24 Unknown Rx vomiting #14 tabs cholecalciferol (vitamin D3) 1,250 1,250 mcg PO QWEEK 12/14/24 Unknown History mcg (50,000 unit) capsule metoclopramide HCl 5 mg tablet 5 mg PO Q8H PRN PRN nausea/vomiting 12/14/24 Unknown History plecanatide 3 mg tablet (Trulance) 3 mg PO DAILY 12/14/24 Unknown History potassium, sodium phosphates 280 1 packet PO TID 12/14/24 Unknown History mg-160 mg-250 mg oral powder packet Allergy/AdvReac Type Severity Reaction Status Date / Time adhesive tape Allergy Intermediate Rash Verified 12/14/24 19:18 cephalexin (From Keflex) Allergy Intermediate yeast Verified 12/14/24 19:18 infection morphine Allergy Intermediate Rash Verified 12/14/24 19:18 oxycodone (From Percocet) Allergy Intermediate Rash Verified 12/14/24 19:18 ondansetron AdvReac I BLACK Verified 12/14/24 19:18 OUT AND LOSE CONTROL OF MY BLADDER Family History Mother Anxiety and depression Bipolar disorder PCOS (polycystic ovarian syndrome) Father Valvular heart disease Surgical History History of loop recorder Hx of appendectomy Hx of eye surgery H/O aortic root repair Social History household members: spouse Smoking Status: Current every day smoker tobacco type: e-cigarettes Electronic Cigarette Use: with nicotine alcohol intake: never substance use type: marijuana ROS Constitutional Constitutional: Reports fatigue and malaise; Denies chills or fever(s) Eyes Eyes: Denies change in vision Cardiovascular Cardiovascular: Denies chest pain Respiratory/Chest Respiratory/Chest: Denies shortness of breath at rest Gastrointestinal Gastrointestinal: Reports nausea and vomiting; Denies abdominal pain, constipation or diarrhea Genitourinary Genitourinary: Denies dysuria Musculoskeletal Musculoskeletal: Denies arthralgias or myalgias Neurologic Neurologic: Denies dizziness or headache(s) Vital Signs Vital Signs Vital Signs: 12/14/24 19:18 12/14/24 20:05 12/14/24 20:06 Temperature 98.5 F Temperature Source Oral Pulse Rate 104 H 85 Respiratory Rate 24 H 16 Respiratory Effort Respiratory Pattern Blood Pressure 144/110 H 132/81 H Blood Pressure Mean 121 98 Pulse Ox 100 98 96 Oxygen Delivery Method Room Air 12/14/24 20:15 12/14/24 20:34 12/14/24 20:38 Temperature Temperature Source Pulse Rate 84 Respiratory Rate 35 H Respiratory Effort Respiratory Pattern Blood Pressure 127/93 H Blood Pressure Mean 104 Pulse Ox 98 Oxygen Delivery Method 12/14/24 20:42 12/14/24 20:51 12/14/24 21:01 Temperature Temperature Source Pulse Rate 88 95 Respiratory Rate 16 23 H Respiratory Effort Respiratory Pattern Blood Pressure 127/93 H 130/89 H Blood Pressure Mean 104 101 Pulse Ox 99 Oxygen Delivery Method Room Air 12/14/24 21:21 12/14/24 21:22 12/14/24 21:23 Temperature 98.1 F Temperature Source Pulse Rate 74 77 Respiratory Rate 16 20 H Respiratory Effort Respiratory Pattern Blood Pressure 130/89 H 133/97 H Blood Pressure Mean 102 109 Pulse Ox 99 98 98 Oxygen Delivery Method Room Air 12/14/24 21:30 12/14/24 21:45 12/14/24 22:09 Temperature Temperature Source Pulse Rate 89 77 Respiratory Rate 16 19 H Respiratory Effort Respiratory Pattern Blood Pressure 130/77 H Blood Pressure Mean 93 Pulse Ox 98 98 99 Oxygen Delivery Method Room Air 12/14/24 22:10 12/14/24 22:15 12/14/24 22:30 Temperature Temperature Source Pulse Rate 53 L 87 87 Respiratory Rate 23 H 19 H 20 H Respiratory Effort Respiratory Pattern Blood Pressure 111/55 L 125/72 H Blood Pressure Mean 72 88 Pulse Ox 99 95 97 Oxygen Delivery Method Room Air 12/14/24 22:42 Temperature Temperature Source Pulse Rate Respiratory Rate Respiratory Effort Normal Respiratory Pattern Normal Blood Pressure Blood Pressure Mean Pulse Ox Oxygen Delivery Method Weight Weight: 79.7 kg Body Mass Index (BMI) 25.9 Physical Exam Const alert and no apparent distress Constitutional Narrative: Younger female, fatigued and pale appearing, somewhat somnolent appearing, mildly uncomfortable appearing due to ongoing nausea, otherwise laying on her side in bed and answering questions with short appropriate responses. General Appearance: cooperative and comfortable HEENT normocephalic, head/scalp atraumatic, hearing grossly normal bilaterally, nasal mucous membranes and turbinates normal and moist oral mucous membranes Eyes PERRL, EOMs intact bilaterally and conjunctivae normal Neck full ROM Chest inspection of chest normal Resp normal respiratory effort, normal air movement, no use of accessory muscles and clear to auscultation bilaterally Cardio regular rate, regular rhythm, no murmurs and peripheral pulses 2+ throughout GI normal to inspection, nondistended, normoactive bowel sounds, soft to palpation, non-tender and non-distended Back/Spine normal ROM Extremity normal to inspection, full ROM and no pedal edema Skin no rashes or lesions noted Psych mental status grossly normal Psych Narrative: Flat affect. Results Lab / Micro Data 12/14/24 19:35 12/14/24 21:31 Labs: Laboratory Results - last 24 hr 12/14/24 19:21: POC Glucose 352 H 12/14/24 19:35: WBC 15.9 H, RBC 4.62, Hgb 13.7, Hct 39.9, MCV 86.4, MCH 29.7, MCHC 34.3, RDW Std Deviation 40.1, RDW Coeff of Joyce 12.9, Plt Count 159, MPV 12.6 H, Immature Gran % (Auto) 0.800, Neut % (Auto) 78.7 H, Lymph % (Auto) 15.1 L, [place] % (Auto) 4.9, Eos % (Auto) 0.1, Baso % (Auto) 0.4, Absolute Neuts (auto) 12.5 H, Absolute Lymphs (auto) 2.40, Nucleated RBC % 0, Sodium 136, Potassium 3.6, Chloride 104, Carbon Dioxide 15.1 L, Anion Gap 17 H, BUN 13, Creatinine 0.74, Estim Creat Clear Calc 125.65, Est GFR (MDRD) Non-Af 112, BUN/Creatinine Ratio 18.2, Glucose 329 H, Calcium 8.2, Total Bilirubin 0.92, AST 16, ALT 11, Alkaline Phosphatase 76, Total Protein 6.5, Albumin 4.2, Globulin 2.4, Albumin/Globulin Ratio 1.8, Lipase 13, b-Hydroxybutyric mmol/L 1.9, Serum , Qual NEGATIVE 12/14/24 21:00: Urine Color Yellow, Urine Clarity Clear, Urine pH 6.0, Ur Specific [place] 1.015, Urine Protein 15 H, Urine Glucose (UA) 1000 H, Urine Ketones 150 A*, Urine Occult Blood Negative, Urine Nitrite Negative, Urine Bilirubin Negative, Urine Urobilinogen Normal, Ur Leukocyte Esterase Negative, Urine RBC 0 SEEN, Urine WBC 0 SEEN, Ur Squamous Epith Cells 0-5 SEEN, Urine Bacteria 0 SEEN, Urine Mucus 0 SEEN 12/14/24 21:09: POC Glucose 291 H 12/14/24 22:25: POC Glucose 186 H ABG Data ABG results: ABG 12/14/24 20:40 Specimen Type ISABELLE Sample Site Not entered VBG pH 7.45 H VBG pO2 43 H VBG HCO3 15 L VBG Total CO2 16 L VBG O2 Sat (Calc) 83 H VBG Base Excess -9 L POC Mix VBG pCO2 Pt Tmp 21.7 L O2 Delivery Device Room Air Assessment & Plan Assessment/Plan (1) Intractable cyclical vomiting with nausea: PLAN: Plan Patient is a 29-year-old female who presented to [facility] ED on 12/14/2024 with nausea and vomiting. 1. Recurrent episode of intractable nausea with vomiting ? Admit under observation status to [facility]. Patient with prior hospitalizations in October and earlier this year for similar presentation. Suspected multifactorial from diabetic gastroparesis and cannabis hyperemesis syndrome. Given multiple treatments in the ED with minimal improvement. Also given 2 L of IV fluids and Humalog with improvement in glucose and mildly elevated anion gap. Patient improved within 24 hours in October and I anticipate she may follow a similar course during this hospitalization. Given difficulty with p.o. intake, will treat with IV Haldol, Reglan and promethazine as needed. Will order carb controlled diet for patient and she is free to eat/drink whenever she can tolerate at this time. Notably there was apparently a plan for her to establish with GI but it does not appear this has happened. If she does not improve quickly here, low threshold to consult GI for assistance. 2. Type 1 diabetes mellitus with hyperglycemia, diabetic gastroparesis ? Blood glucose 329 on admit. On insulin pump and patient notes this is functioning without issue. Given 10 units of Humalog in the ED with improvement in blood glucose to 180. Okay to continue patient's home insulin pump while inpatient. 3. Marijuana use ? Has medical marijuana card and reports that these episodes of intractable nausea with vomiting occur when she is not using marijuana. Educated patient on cannabis hyperemesis syndrome and recommended marijuana cessation going forward. 4. Leukocytosis ? WBC count 15.9. Afebrile and noninfectious appearing. Suspect reactive secondary to intractable nausea with vomiting and also slightly elevated due to hemoconcentration. Follow-up a.m. CBC. 5. Hypophosphatemia ? Phosphorus 1.4 on admit. Magnesium 1.5, potassium 3.3. Will give IV repletion at this time and restart home Neutra-Phos packets once able. 6. History of PTSD/borderline personality disorder/insomnia ? Continue home quetiapine and doxepin. 7. History of psoriasis ? Stable. Continue Skyrizi injections in outpatient setting. DVT prophylaxis: Lovenox CODE STATUS: Full code, verified Expected disposition: Home, 1 to 2 days Total clinical time spent by myself addressing the patient's medical issues, reviewing all the data, and collaborating with patient's care team: 75 minutes. Charges/Coding Visit Charges Inpatient E&M: 98096 Init Hosp L3
[2024-12-14 22:58] LABS: Anion Gap 15 (5-15); BUN 11 mg/dL (4-19); BUN/Creat Ratio 17.1 RATIO (10-20); Calcium,Total 7.7 mg/dL (7.6-11.0); Carbon Dioxide 15.3 mmol/L (21.0-32.0); Chloride 108 mmol/L (98-108); Creatinine, Serum 0.67 mg/dL (0.70-1.20); EST Glomerular Filtration Rate 121 (>60); Estimated Creatinine Clearance 138.78 ml/min (50-250); Glucose 180 mg/dL (70-99); Potassium 3.3 mmol/L (3.3-5.1); Sodium Level 138 mmol/L (133-145)
[2024-12-14 23:23] LABS: Magnesium 1.5 mg/dL (1.5-2.2); Phosphorus 1.4 mg/dL (2.7-4.5)
[2024-12-15] VITALS (7 sets, daily range): BP systolic 96–151; BP diastolic 45–69; PULSE 58–84; RESP 16; TEMP 36.2–36.9; O2SAT 96–100
[2024-12-15] MEDS: Potassium Phosphate 40 MM in 0.9% Normal Saline (500mL Bag) 500 ML 62.5 MM IV (00:49)
[2024-12-15] MEDS: 0.9% Normal Saline (100mL Bag) 100 ML 15 ML IV (01:55)
[2024-12-15] MEDS: Magnesium Sulfate 4gm/100mL 4 GM/100 ML IV.SOLN. IV (01:59)
[2024-12-15] MEDS: proMETHazine 25 MG/ML Syringe IM ×3 (02:06→14:40)
[2024-12-15] MEDS: QUEtiapine 25 MG Tablet PO ×3 (02:07→19:58)
[2024-12-15 03:00] LABS: Bedside Glucose 109 mg/dL (74-106)
[2024-12-15] MEDS: Na Biphos/Potassium Phosphate PACKET 1 PACKET PO ×3 (05:19→19:58)
[2024-12-15 05:54] LABS: Hemoglobin 12.2 g/dL (12.0-15.0); Mean Corp Hgb Conc 33.9 g/dL (32-36); Mean Corpuscular Hgb 30.1 pg (27.0-32.0); Mean Corpuscular Volume 88.9 fL (81-99); Mean Platelet Vol. 12.9 fl (6.2-12.0); Platelet Count 145 K/mm3 (150-450); RBC Distribution Width CV 13.1 % (11.6-14.6); RBC Distribution Width SD 42.8 fl (35.1-43.9); Red Blood Count 4.05 M/mm3 (4.2-5.4); White Blood Count 16.4 K/mm3 (4.4-11.0)
[2024-12-15] MEDS: Lactated Ringers 1,000 ML 75 ML IV (06:56)
[2024-12-15 07:10] LABS: Anion Gap 17 (5-15); BUN 11 mg/dL (4-19); BUN/Creat Ratio 19.3 RATIO (10-20); Calcium,Total 7.9 mg/dL (7.6-11.0); Carbon Dioxide 14.3 mmol/L (21.0-32.0); Chloride 106 mmol/L (98-108); Creatinine, Serum 0.56 mg/dL (0.70-1.20); EST Glomerular Filtration Rate 126 (>60); Estimated Creatinine Clearance 153.51 ml/min (50-250); Glucose 40 mg/dL (70-99); Potassium 3.1 mmol/L (3.3-5.1); Sodium Level 138 mmol/L (133-145)
[2024-12-15 07:27] LABS: Bedside Glucose 34 mg/dL (74-106)
[2024-12-15 07:55] LABS: Bedside Glucose 77 mg/dL (74-106)
[2024-12-15] MEDS: Enoxaparin 40 MG/0.4 ML Syringe SC (08:40)
[2024-12-15] MEDS: Haloperidol Lactate 5 MG/ML Vial 1 MG IM (09:28)
[2024-12-15 11:36] LABS: Bedside Glucose 204 mg/dL (74-106)
--- NOTE | 2024-12-15 14:06 | PCM.PROGNOTE ---
Subjective Subjective Patient seen and examined. She complained of intractable nausea and vomiting. She denied any abdominal pain, fever or chills or any other symptoms. Review of systems is otherwise negative. Objective Data Objective Data Vital Signs: Vital Signs Temp Pulse Resp BP Pulse Ox O2 Del Method 97.5 F L 66 16 127/63 H 97 Room Air 12/15/24 11:24 12/15/24 11:24 12/15/24 11:24 12/15/24 11:24 12/15/24 11:24 12/15/24 13:54 Oxygen Delivery Method Room Air Weight: 168 lb 3.403 oz Body Mass Index (BMI) 24.8 Intake & Output: Intake and Output for Last 24 Hours 12/13/24 12/14/24 12/15/24 23:59 23:59 23:59 Intake Total 1999 1713.3333 / 1713.3333 Output Total 150 / 150 Balance 1999 1563.3333 / 1563.3333 Lab / Micro Data 12/15/24 05:10 12/15/24 05:10 Labs: Laboratory Results - last 24 hr 12/14/24 19:21: POC Glucose 352 H 12/14/24 19:35: WBC 15.9 H, RBC 4.62, Hgb 13.7, Hct 39.9, MCV 86.4, MCH 29.7, MCHC 34.3, RDW Std Deviation 40.1, RDW Coeff of Joyce 12.9, Plt Count 159, MPV 12.6 H, Immature Gran % (Auto) 0.800, Neut % (Auto) 78.7 H, Lymph % (Auto) 15.1 L, [place] % (Auto) 4.9, Eos % (Auto) 0.1, Baso % (Auto) 0.4, Absolute Neuts (auto) 12.5 H, Absolute Lymphs (auto) 2.40, Nucleated RBC % 0, Sodium 136, Potassium 3.6, Chloride 104, Carbon Dioxide 15.1 L, Anion Gap 17 H, BUN 13, Creatinine 0.74, Estim Creat Clear Calc 125.65, Est GFR (MDRD) Non-Af 112, BUN/Creatinine Ratio 18.2, Glucose 329 H, Calcium 8.2, Total Bilirubin 0.92, AST 16, ALT 11, Alkaline Phosphatase 76, Total Protein 6.5, Albumin 4.2, Globulin 2.4, Albumin/Globulin Ratio 1.8, Lipase 13, b-Hydroxybutyric mmol/L 1.9, Serum , Qual NEGATIVE 12/14/24 21:00: Urine Color Yellow, Urine Clarity Clear, Urine pH 6.0, Ur Specific [place] 1.015, Urine Protein 15 H, Urine Glucose (UA) 1000 H, Urine Ketones 150 A*, Urine Occult Blood Negative, Urine Nitrite Negative, Urine Bilirubin Negative, Urine Urobilinogen Normal, Ur Leukocyte Esterase Negative, Urine RBC 0 SEEN, Urine WBC 0 SEEN, Ur Squamous Epith Cells 0-5 SEEN, Urine Bacteria 0 SEEN, Urine Mucus 0 SEEN 12/14/24 21:09: POC Glucose 291 H 12/14/24 21:31: Sodium 138, Potassium 3.3, Chloride 108, Carbon Dioxide 15.3 L, Anion Gap 15, BUN 11, Creatinine 0.67 L, Estim Creat Clear Calc 138.78, Est GFR (MDRD) Non-Af 121, BUN/Creatinine Ratio 17.1, Glucose 180 H, Calcium 7.7, Phosphorus 1.4 L*, Magnesium 1.5 12/14/24 22:25: POC Glucose 186 H 12/15/24 02:09: POC Glucose 109 H 12/15/24 05:10: WBC 16.4 H, RBC 4.05 L, Hgb 12.2, Hct 36.0 L, MCV 88.9, MCH 30.1, MCHC 33.9, RDW Std Deviation 42.8, RDW Coeff of Joyce 13.1, Plt Count 145 L, MPV 12.9 H, Sodium 138, Potassium 3.1 L, Chloride 106, Carbon Dioxide 14.3 L, Anion Gap 17 H, BUN 11, Creatinine 0.56 L, Estim Creat Clear Calc 153.51, Est GFR (MDRD) Non-Af 126, BUN/Creatinine Ratio 19.3, Glucose 40 L*, Calcium 7.9 12/15/24 07:00: POC Glucose 34 L* 12/15/24 07:35: POC Glucose 77 12/15/24 11:05: POC Glucose 204 H ABG Data ABG results: ABG 12/14/24 20:40 Specimen Type ISABELLE Sample Site Not entered VBG pH 7.45 H VBG pO2 43 H VBG HCO3 15 L VBG Total CO2 16 L VBG O2 Sat (Calc) 83 H VBG Base Excess -9 L POC Mix VBG pCO2 Pt Tmp 21.7 L O2 Delivery Device Room Air Physical Exam Const alert and oriented x3 Constitutional Narrative: looks uncomfortable due to nausea General Appearance: cooperative HEENT normocephalic and head/scalp atraumatic HEENT Narrative: dry oral mucosal membranes Eyes PERRL and EOMs intact bilaterally Neck no lymphadenopathy and supple Lymph Lymphatic: no lymphadenopathy noted and no lymphedema noted Resp normal respiratory effort, normal air movement and clear to auscultation bilaterally Cardio regular rate, regular rhythm, S1 normal heart sound, S2 normal heart sound and no murmurs GI normal to inspection, nondistended, normoactive bowel sounds, soft to palpation, non-tender and non-distended Extremity normal capillary refill, no clubbing, cyanosis or edema and no calf tenderness General Extremity: no tenderness to palpation of joints or extremities Skin General Skin Exam: no breakdown Neuro CN's II-XII intact bilaterally, no focal motor deficits and no sensory deficits noted Motor Exam: strength 5/5 throughout and general weakness Psych thought process normal Activity / Motor Behavior: restless Assessment & Plan Assessment/Plan (1) Hx of diabetic gastroparesis: (2) Intractable cyclical vomiting with nausea: PLAN: Plan #Intractable nausea and vomiting in the setting of type 1 diabetes mellitus with gastroparesis Still complains of nausea and vomiting today. She has been admitted multiple times for similar presentation. There is likely due to the gastroparesis and also cannabis use. She does use cannabis and says she has a cannabis card for medical marijuana. Keep NPO. Hydrate aggressively with IV fluids. Insulin pump turned off as she was hypoglycemic this morning. On IV Reglan and Compazine as needed for nausea. She is allergic to metoclopramide. Introduce diet once her nausea and vomiting improves. If she continues to vomit excessively, low threshold to consult gastroenterology #Type 1 diabetes mellitus Was hyperglycemic on admission but now hypoglycemic this morning. This is likely due to decreased intake. Insulin pump turned off. Will continue with insulin sliding scale. Started on insulin pump once patient's oral intake improves. #Cannabis use disorder Patient says she uses medical marijuana and has a medical marijuana card. Patient counseled about hyperemesis from cannabis use #Hypophosphatemia and hypokalemia as well as hypomagnesemia These were replaced aggressively on admission. Will monitor. #Leukocytosis: WBC was 15.9 on admission. WBC today is 16.4. No clear focus of infection. Urinalysis showed no evidence of UTI. Will monitor. May be reactive. #History of psoriasis: Stable. On Skyrizi on outpatient basis #History of PTSD and borderline personality disorder: On Seroquel and doxepin DVT prophylaxis: Lovenox Charges/Coding Visit Charges Inpatient E&M: 08811 Subs Hosp L2
[2024-12-15] MEDS: Insulin Basal Pump SC (15:35)
[2024-12-15 15:48] LABS: Bedside Glucose 307 mg/dL (74-106)
[2024-12-15] MEDS: proCHLORPERazine 10 MG/2 ML Vial 5 MG IV (20:15)
[2024-12-15] MEDS: 0.9% Saline Lock 10 ML Syringe IV (20:16)
[2024-12-15 20:24] LABS: Bedside Glucose 260 mg/dL (74-106)
[2024-12-16 02:09] VITALS: BP 165/61; PULSE 60; RESP 26; TEMP 36.9; O2SAT 96
[2024-12-16] MEDS: proMETHazine 25 MG/ML Syringe IM (02:10)
[2024-12-16 05:11] VITALS: RESP 22
[2024-12-16 05:55] VITALS: BP 115/68; PULSE 62; RESP 22; TEMP 36.9; O2SAT 97
[2024-12-16] MEDS: Na Biphos/Potassium Phosphate PACKET 1 PACKET PO ×2 (06:04→14:05)
[2024-12-16 06:19] LABS: Absolute Lymphocyte Count 2.03 X10^3/uL (0.83-4.51); Absolute Neutrophil Count 14.1 X10^3/uL (2.0-7.7); Basophil# 0.05 X10^3/uL; Basophil% 0.3 % (0-1); Eosinophil# 0.01 X10^3/uL; Eosinophils% 0.1 % (0-5); Hematocrit 36.8 % (37-47); Hemoglobin 12.4 g/dL (12.0-15.0); Lymphocyte # 2.03 X10^3/ul (0.83-4.51); Lymphocyte % 11.8 % (19-41); Mean Corp Hgb Conc 33.7 g/dL (32-36); Mean Corpuscular Hgb 29.5 pg (27.0-32.0); Mean Corpuscular Volume 87.4 fL (81-99); Mean Platelet Vol. 12.4 fl (6.2-12.0); Monocyte# 0.86 X10^3/uL; NRBC Flagged by Analyzer 0 % (0-5); Neutrophil # 14.05 X10^3/uL (2.7-7.7); Platelet Count 165 K/mm3 (150-450); RBC Distribution Width CV 13.3 % (11.6-14.6); RBC Distribution Width SD 42.4 fl (35.1-43.9); Red Blood Count 4.21 M/mm3 (4.2-5.4); White Blood Count 17.1 K/mm3 (4.4-11.0)
[2024-12-16 06:32] LABS: Bedside Glucose 180 mg/dL (74-106)
[2024-12-16] MEDS: proCHLORPERazine 10 MG/2 ML Vial 5 MG IV ×2 (06:33→13:03)
[2024-12-16 07:07] LABS: Anion Gap 11 (5-15); BUN 7 mg/dL (4-19); BUN/Creat Ratio 10.1 RATIO (10-20); Calcium,Total 8.4 mg/dL (7.6-11.0); Carbon Dioxide 19.2 mmol/L (21.0-32.0); Chloride 107 mmol/L (98-108); Creatinine, Serum 0.68 mg/dL (0.70-1.20); EST Glomerular Filtration Rate 120 (>60); Estimated Creatinine Clearance 126.42 ml/min (50-250); Glucose 203 mg/dL (70-99); Potassium 4.4 mmol/L (3.3-5.1); Sodium Level 137 mmol/L (133-145)
[2024-12-16 08:00] VITALS: BP 136/70; PULSE 59; RESP 16; TEMP 37.3; O2SAT 97
[2024-12-16] MEDS: QUEtiapine 25 MG Tablet PO (08:03)
[2024-12-16] MEDS: Enoxaparin 40 MG/0.4 ML Syringe SC (08:03)
[2024-12-16] MEDS: Haloperidol Lactate 5 MG/ML Vial 1 MG IM (08:04)
[2024-12-16] MEDS: Insulin Lispro 100 UNIT/ML INSULN.PEN SC ×2 (10:29→14:05)
[2024-12-16 10:43] LABS: Bedside Glucose 227 mg/dL (74-106)
--- NOTE | 2024-12-16 11:27 | CASEMGMT ---
Addendum entered by Bree Grant 12/16/24 11:44: Provided pt with a rx for BGM at this time. Pt denies further needs. Original Note: RN CM into pt room, pt lying in bed in no distress. Pt denies any homegoing needs other than a BGM. Pt states she has enough insulin and supplies for her pump.
--- NOTE | 2024-12-16 11:51 | CASEMGMT ---
Met with patient to complete GRIFFITH form. GRIFFITH form explained to patient who voiced understanding and signed form. Original form placed in pt?s chart and copy provided to patient. Marlene Valle, Discharge Planning Asst
[2024-12-16] MEDS: 0.9% Saline Lock 10 ML Syringe IV (13:03)
[2024-12-16 14:15] VITALS: BP 124/61; PULSE 57; RESP 16; TEMP 36.8; O2SAT 96
[2024-12-16 14:33] LABS: Bedside Glucose 214 mg/dL (74-106)
--- NOTE | 2024-12-16 14:45 | DCINST_ITS ---
Discharge Instructions Diet Discharge Diet: - (Resume home diet) DC O2, CPAP, BIPAP needs Home O2 Discharge instructions: No Dressing / Incision Discharge Activity: Return to Normal Activity Weight Bearing Status: Full weight bearing Follow Up Care Test Results: Test results from this visit will be discussed in further detail at your follow- up appointment, if applicable. Discharge Plan Admission Admit Date/Time: 12/14/24 22:45 Primary Reason for Your Visit: Uncontrolled nausea and vomiting Attending Provider: John Knapp Primary Care Provider: Care Physician,No Primary Consulting Providers: Dangelo Encarnacion; Vita Jefferson Discharge Orders/Prescriptions Prescriptions: New haloperidol 5 mg tablet 5 mg PO TID PRN (Reason: nausea and vomiting) Qty: 20 0RF Rx Instructions: Take 1/2-1 3 times a day as needed nausea and vomiting Continued insulin lispro [Humalog U-100 Insulin] 100 unit/mL solution See Rx Instructions .ROUTE .COMPLEX Patient Comments: use IN THE INSULIN PUMP FOR A TOTAL DAILY DOSE OF 100 UNITS. Rx Instructions: 100 U VIA PUMP DAILY; BASAL RATE - 1.8 UNITS/HOUR BOLUS: CARB RATIO- 1 UNIT /10 GRAMS OF CARBS CORRECTION- 1 UNIT FOR EVERY 30MG/DL BLOOD GLUCOSE OVER 120 (DME) pen needle, diabetic [Ultra-Thin II Ins Pen [place]] 29 gauge x 1/2 needle See Rx Instructions .Route Qty: 100 0RF Rx Instructions: As directed Skyrizi 150 mg/mL pen injector 150 mg subcut .[id number] albuterol sulfate [Ventolin HFA] 90 mcg/actuation HFA aerosol inhaler 1 - 2 puff inhalation Q4H PRN PRN (Reason: Wheezing) Qty: 1 0RF metoclopramide HCl 5 mg tablet 5 mg PO Q8H PRN PRN (Reason: nausea/vomiting) cholecalciferol (vitamin D3) 1,250 mcg (50,000 unit) capsule 1,250 mcg PO QWEEK potassium, sodium phosphates 280-160-250 mg powder in packet 1 packet PO TID Trulance 3 mg tablet 3 mg PO DAILY Insulin Basal Pump (Pt's Own) [Pump, Basal] 1.8 unit subcut UD Qty: 0 0RF promethazine 25 mg tablet 50 mg PO Q6H PRN (Reason: nausea and vomiting) Rx Instructions: one or two every six hours for nausea quetiapine 50 mg tablet extended release 24 hr 50 mg PO QHS doxepin 6 mg tablet 6 mg PO QHS Discontinued haloperidol 2 mg tablet 2 mg PO TID PRN (Reason: nausea and vomiting) Qty: 14 0RF Rx Instructions: 1 or 2 tabs 3 times a day as needed for nausea and vomiting Referrals / Follow Up: Care Physician,No Primary [Primary Care Provider] - [facility] - Within 2 Weeks (Follow-up to establish a primary care physician within 2 weeks, call for an appointment) Disposition Disposition (needs filled in before D/C Order can be placed): Home, Self Care
--- NOTE | 2024-12-16 14:54 | PCM.DC.SUM ---
Providers Date of Admission: 12/14/24 Date of Discharge: 12/16/24 Primary Care Physician: Nya Primary Care Phys Reason For Visit: INTRACTABLE NAUSEA AND VOMITING Diagnosis Discharge Diagnosis (1) Hx of diabetic gastroparesis: Status: Acute Code(s): Z86.39 - Personal history of other endocrine, nutritional and metabolic disease (2) Intractable cyclical vomiting with nausea: Status: Acute Code(s): R11.15 - Cyclical vomiting syndrome unrelated to migraine Plan 1. Episodic intractable nausea and vomiting-secondary to gastroparesis and cannabis hyperemesis syndrome #2 type 1 diabetes with hyperglycemia #3 chronic marijuana usage #4 diabetic gastroparesis #5 PTSD #6 hypophosphatemia Medications at Discharge Home Medications insulin lispro 100 unit/mL subcutaneous solution (Humalog U-100 Insulin) See Rx Instructions .Route .COMPLEX 04/27/23 pen needle, diabetic 29 gauge x 1/2 (Ultra-Thin II Insulin Pen [place]) #100 ea 08/10/23 risankizumab-rzaa 150 mg/mL subcutaneous pen injector (Skyrizi) 150 mg subcut .[id number] PSORIASIS 02/07/24 Insulin Basal Pump (Pt's Own) [Pump, Basal] 1.8 unit subcut UD diabetes ##0 06/11/24 albuterol sulfate 90 mcg/actuation aerosol inhaler (Ventolin HFA) 1 - 2 puff inhalation Q4H PRN PRN Wheezing ##1 08/01/24 doxepin 6 mg tablet 6 mg PO QHS insomnia 10/18/24 promethazine 25 mg tablet 50 mg PO Q6H PRN nausea and vomiting 10/18/24 quetiapine 50 mg tablet,extended release 24 hr 50 mg PO QHS mood 10/18/24 cholecalciferol (vitamin D3) 1,250 mcg (50,000 unit) capsule 1,250 mcg PO QWEEK 12/14/24 metoclopramide HCl 5 mg tablet 5 mg PO Q8H PRN PRN nausea/vomiting 12/14/24 plecanatide 3 mg tablet (Trulance) 3 mg PO DAILY 12/14/24 potassium, sodium phosphates 280 mg-160 mg-250 mg oral powder packet 1 packet PO TID 12/14/24 haloperidol 5 mg tablet 5 mg PO TID PRN nausea and vomiting #20 tabs 12/16/24 Hospital Course Operations None Procedures None Summary of Care Provided Minutes Spent on Discharge: 30 Hospital Course: This 29-year-old white female was seen in the emergency room at [facility] with complaints of nausea and vomiting, she had been admitted here at the hospital before with similar symptoms. She is a type I diabetic and has a history of gastroparesis. Patient is a chronic medical marijuana user. Labs revealed an elevated white blood cell count of 15.9, potassium was 3.3 phosphorus was 1.4. Blood glucose was 329. Patient was placed in observation status on MedSurg 3 and given antiemetics and fluids. She was cautioned against using marijuana due to the fact that it could cause nausea and vomiting. On 12/16/24, patient was seen and examined: On examination she appeared in good health and spirits, she does not appear to be in any distress. Vital signs as documented. Skin warm and dry and without overt rashes. Neck without JVD, thyroid appears normal, trachea is midline, neck is supple. Lungs clear, normal air movement was noted. Heart exam notable for regular rhythm, normal sounds and absence of murmurs, rubs or gallops. Abdomen unremarkable and without evidence of organomegaly, masses, or abdominal aortic enlargement, bowel sounds are present in all 4 quadrants, no abdominal tenderness was noted. Extremities nonedematous, no cyanosis was noted, no clubbing was noted. Neuro: Cranial nerves II through XII are grossly intact, no focal motor deficits were noted, sensation to light touch and pinprick is intact, motor exam 5/5 throughout. Psych: Patient is alert and oriented x3, she does not appear anxious or depressed, she does not appear agitated. Patient was discharged home in stable condition on 12/16/2024. Weight / BMI Weight Weight: 76.3 kg Body Mass Index (BMI) 24.8 ABG / Lab / Microbiology Data 12/16/24 05:49 12/16/24 05:49 Laboratory: Laboratory Results - last 24 hr 12/15/24 15:19: POC Glucose 307 H 12/15/24 19:47: POC Glucose 260 H 12/16/24 05:49: WBC 17.1 H, RBC 4.21, Hgb 12.4, Hct 36.8 L, MCV 87.4, MCH 29.5, MCHC 33.7, RDW Std Deviation 42.4, RDW Coeff of Joyce 13.3, Plt Count 165, MPV 12.4 H, Immature Gran % (Auto) 0.800, Neut % (Auto) 82.0 H, Lymph % (Auto) 11.8 L, [place] % (Auto) 5.0, Eos % (Auto) 0.1, Baso % (Auto) 0.3, Absolute Neuts (auto) 14.1 H, Absolute Lymphs (auto) 2.03, Nucleated RBC % 0, Sodium 137, Potassium 4.4, Chloride 107, Carbon Dioxide 19.2 L, Anion Gap 11, BUN 7, Creatinine 0.68 L, Estim Creat Clear Calc 126.42, Est GFR (MDRD) Non-Af 120, BUN/Creatinine Ratio 10.1, Glucose 203 H, Calcium 8.4 12/16/24 06:02: POC Glucose 180 H 12/16/24 10:26: POC Glucose 227 H 12/16/24 14:05: POC Glucose 214 H D/C Instructions Discharge Diet: - (Resume home diet) Weight Bearing Status: Full weight bearing DC O2, CPAP, BIPAP Needs Home O2 Discharge instructions: No Meaningful Use Info Meaningful Use Meaningful Use Diagnoses (Choose all that apply): None applicable Ischemic Stroke Statin Dosing Therapy Reference: STATIN DOSE THERAPY REFERENCE: * Patients > 75 years receive moderate or high dose statin therapy. * Patients 75 years or YOUNGER should receive HIGH intensity statin dose unless contraindicated. You will be required to document reason for non-treatment if statin daily dose does not meet guidelines. HIGH DOSE STATIN THERAPY DAILY Atorvastatin > than or = to 40 mg Rosuvastatin > than or = to 20 mg Amlodipine + Atorvastatin > than or = to 2.5/40 mg Ezetimibe + Simvastatin 10/80 mg Simvastatin 80mg Discharge Plan Admission Admit Date/Time: 12/14/24 22:45 Primary Reason for Your Visit: Uncontrolled nausea and vomiting Attending Provider: John Knapp Primary Care Provider: Care Physician,No Primary Consulting Providers: Dangelo Encarnacion; Vita Jefferson Discharge Orders/Prescriptions Prescriptions: New haloperidol 5 mg tablet 5 mg PO TID PRN (Reason: nausea and vomiting) Qty: 20 0RF Rx Instructions: Take 1/2-1 3 times a day as needed nausea and vomiting Continued insulin lispro [Humalog U-100 Insulin] 100 unit/mL solution See Rx Instructions .ROUTE .COMPLEX Patient Comments: use IN THE INSULIN PUMP FOR A TOTAL DAILY DOSE OF 100 UNITS. Rx Instructions: 100 U VIA PUMP DAILY; BASAL RATE - 1.8 UNITS/HOUR BOLUS: CARB RATIO- 1 UNIT /10 GRAMS OF CARBS CORRECTION- 1 UNIT FOR EVERY 30MG/DL BLOOD GLUCOSE OVER 120 (DME) pen needle, diabetic [Ultra-Thin II Ins Pen [place]] 29 gauge x 1/2 needle See Rx Instructions .Route Qty: 100 0RF Rx Instructions: As directed Skyrizi 150 mg/mL pen injector 150 mg subcut .[id number] albuterol sulfate [Ventolin HFA] 90 mcg/actuation HFA aerosol inhaler 1 - 2 puff inhalation Q4H PRN PRN (Reason: Wheezing) Qty: 1 0RF metoclopramide HCl 5 mg tablet 5 mg PO Q8H PRN PRN (Reason: nausea/vomiting) cholecalciferol (vitamin D3) 1,250 mcg (50,000 unit) capsule 1,250 mcg PO QWEEK potassium, sodium phosphates 280-160-250 mg powder in packet 1 packet PO TID Trulance 3 mg tablet 3 mg PO DAILY Insulin Basal Pump (Pt's Own) [Pump, Basal] 1.8 unit subcut UD Qty: 0 0RF promethazine 25 mg tablet 50 mg PO Q6H PRN (Reason: nausea and vomiting) Rx Instructions: one or two every six hours for nausea quetiapine 50 mg tablet extended release 24 hr 50 mg PO QHS doxepin 6 mg tablet 6 mg PO QHS Discontinued haloperidol 2 mg tablet 2 mg PO TID PRN (Reason: nausea and vomiting) Qty: 14 0RF Rx Instructions: 1 or 2 tabs 3 times a day as needed for nausea and vomiting Referrals / Follow Up: Care Physician,No [facility] 2:00 pm (Follow-up to establish a primary care physician within 2 weeks, call for an appointment. Automobile Technician called and made the appointment it is December 26, 2024 with Laine.) Disposition Disposition (needs filled in before D/C Order can be placed): Home, Self Care Charges/Coding Visit Charges Inpatient E&M: 43102 Disch Hosp
--- NOTE | 2024-12-16 15:16 | PHA.DC_ITS ---
Pharmacy [place] Med Reconciliation Pharmacy Service has performed discharge medication reconciliation for this patient. The patient's discharge medication list was reviewed for discrepancies and discrepancies were resolved. Medications at Discharge Home Medications insulin lispro 100 unit/mL subcutaneous solution (Humalog U-100 Insulin) See Rx Instructions .Route .COMPLEX 04/27/23 pen needle, diabetic 29 gauge x 1/2 (Ultra-Thin II Insulin Pen [place]) #100 ea 08/10/23 risankizumab-rzaa 150 mg/mL subcutaneous pen injector (Skyrizi) 150 mg subcut .[id number] PSORIASIS 02/07/24 Insulin Basal Pump (Pt's Own) [Pump, Basal] 1.8 unit subcut UD diabetes ##0 06/11/24 albuterol sulfate 90 mcg/actuation aerosol inhaler (Ventolin HFA) 1 - 2 puff inhalation Q4H PRN PRN Wheezing ##1 08/01/24 doxepin 6 mg tablet 6 mg PO QHS insomnia 10/18/24 promethazine 25 mg tablet 50 mg PO Q6H PRN nausea and vomiting 10/18/24 quetiapine 50 mg tablet,extended release 24 hr 50 mg PO QHS mood 10/18/24 cholecalciferol (vitamin D3) 1,250 mcg (50,000 unit) capsule 1,250 mcg PO QWEEK 12/14/24 metoclopramide HCl 5 mg tablet 5 mg PO Q8H PRN PRN nausea/vomiting 12/14/24 plecanatide 3 mg tablet (Trulance) 3 mg PO DAILY 12/14/24 potassium, sodium phosphates 280 mg-160 mg-250 mg oral powder packet 1 packet PO TID 12/14/24 haloperidol 5 mg tablet 5 mg PO TID PRN nausea and vomiting #20 tabs 12/16/24
== END 2024-12-16 16:41 | disposition home or self-care (01) ==
LOC: ED 22:55 → MS3 23:02
PROVIDERS: Student in an Organized Health Care Education/Training Program; Admitting Provider Hospitalist; Emergency Provider Emergency Medicine; Referring Provider Hospitalist; Visit Provider Internal Medicine
DX: E10.43 Type 1 diabetes mellitus with diabetic autonomic (poly)neuropathy (principal); F60.3 Borderline personality disorder; E10.65 Type 1 diabetes mellitus with hyperglycemia; Z79.4 Long term (current) use of insulin; E10.649 Type 1 diabetes mellitus with hypoglycemia without coma; R11.15 Cyclical vomiting syndrome unrelated to migraine; K31.84 Gastroparesis; Q87.40 Marfan syndrome, unspecified; L40.9 Psoriasis, unspecified; E83.39 Other disorders of phosphorus metabolism; E83.42 Hypomagnesemia; E87.6 Hypokalemia; Z96.41 Presence of insulin pump (external) (internal); F12.90 Cannabis use, unspecified, uncomplicated; F17.210 Nicotine dependence, cigarettes, uncomplicated; F17.290 Nicotine dependence, other tobacco product, uncomplicated; Z79.899 Other long term (current) drug therapy; F43.10 Post-traumatic stress disorder, unspecified
CPT/HCPCS: 36415; 36591; 80048; 80053; 81001; 82010; 82803; 82962; 83690; 83735; 84100; 84703; 85025; 85027; 94668; 96361; 96365; 96366; 96368; 96372; 96375; 96376; 99221; 99285; A4216; G0378

== ENCOUNTER → 2024-12-25 | Outpatient (CLI) | payer MEDICARE, MEDICAID, SELFPAY ==
[2024-12-25 17:06] LABS: Absolute Neutrophil Count 7.3 X10^3/uL (2.0-7.7); Basophil# 0.05 X10^3/uL; Basophil% 0.5 % (0-1); Eosinophil# 0.06 X10^3/uL; Eosinophils% 0.6 % (0-5); Hematocrit 42.8 % (37-47); Hemoglobin 14.5 g/dL (12.0-15.0); Lymphocyte % 17.6 % (19-41); Mean Corp Hgb Conc 33.9 g/dL (32-36); Mean Corpuscular Hgb 29.5 pg (27.0-32.0); Mean Corpuscular Volume 87.2 fL (81-99); Mean Platelet Vol. 12.4 fl (6.2-12.0); Monocyte# 0.51 X10^3/uL; Monocyte% 5.3 % (0-10); NRBC Flagged by Analyzer 0 % (0-5); Neutrophil # 7.26 X10^3/uL (2.7-7.7); Neutrophil % 75.1 % (47-70); Platelet Count 149 K/mm3 (150-450); RBC Distribution Width CV 13.1 % (11.6-14.6); RBC Distribution Width SD 41.7 fl (35.1-43.9); Red Blood Count 4.91 M/mm3 (4.2-5.4); White Blood Count 9.7 K/mm3 (4.4-11.0)
[2024-12-25 17:50] LABS: ALB/GLOB Ratio 1.6 RATIO (0.9-2.4); AST(SGOT) 14 U/L (<=31); Alanine Aminotransfer ALT/SGPT 9 U/L (<=34); Albumin, Serum 4.3 g/dL (3.5-5.0); Alkaline Phosphatase 78 U/L (35-104); Anion Gap 13 (5-15); BUN 11 mg/dL (4-19); BUN/Creat Ratio 14.6 RATIO (10-20); Calcium,Total 9.3 mg/dL (7.6-11.0); Carbon Dioxide 19.3 mmol/L (21.0-32.0); Chloride 100 mmol/L (98-108); Creatinine, Serum 0.75 mg/dL (0.70-1.20); EST Glomerular Filtration Rate 110 (>60); Globulin 2.7 g/dL (2.2-4.2); Glucose 443 mg/dL (70-99); Phosphorus 2.9 mg/dL (2.7-4.5); Potassium 4.5 mmol/L (3.3-5.1); Sodium Level 133 mmol/L (133-145); Total Bilirubin 0.56 mg/dL (0.00-1.30)
== END | disposition home or self-care (01) ==
LOC: VSLAB 14:57
DX: E10.9 Type 1 diabetes mellitus without complications (principal)
CPT/HCPCS: 36415; 80053; 84100; 85025

== ENCOUNTER → 2025-01-08 | Outpatient (CLI) | payer MEDICARE, MEDICAID, SELFPAY ==
--- NOTE | 2025-01-08 10:13 | RAD_ITS ---
PROCEDURE: ABDOMEN SINGLE VIEW 01/08/2025 REASON FOR EXAM: ABD PAIN, CONSTIPATION TECHNIQUE: Single view abdomen. 2 images to include the entire abdomen and pelvis FINDINGS: Moderate appearing colonic stool without evidence of significant appearing stool at the sigmoid or rectum. No gaseous distention of bowel. Note of median sternotomy. RAD/Abdomen Single View IMPRESSION: Moderate appearing colonic stool without evidence of significant appearing stoo l at the sigmoid or rectum. No gaseous distention of bowel. Reading Location: [id number]
== END | disposition home or self-care (01) ==
LOC: RAD 10:05
PROVIDERS: Referring Provider Nurse Practitioner Acute Care; Visit Provider Nurse Practitioner Acute Care
DX: K59.00 Constipation, unspecified (principal)
CPT/HCPCS: 74018

== ENCOUNTER 2025-01-22 18:48 | Inpatient (IN) | payer MEDICARE, MEDICAID, SELFPAY ==
[2025-01-22 18:50] VITALS: BP 112/75; PULSE 100; RESP 16; TEMP 36.3; O2SAT 98
[2025-01-22 19:32] LABS: Bedside Glucose 492 mg/dL (74-106)
--- NOTE | 2025-01-22 20:00 | EX.ED.DYSGE1 ---
HPI History of Present Illness Chief Complaint: Nausea/Vomiting Informant: patient Narrative Narrative: 29-year-old female history of diabetes, diabetic gastroparesis, and cannabis use presenting to the emergency room with vomiting. Patient states that around 1600 today she began to have nausea and vomiting. She has been noting some mild diarrhea recently. States her blood sugars have been in the 150-200 range today but when she got to the emergency room it was approaching 500. Patient does routinely use cannabis but states that since her last hospitalization she has been using less. Patient she states that she sees gastroenterology through [facility]. She was hospitalized here about 1 month ago. She states the only new medication has been the addition of gabapentin. No reported fevers. Patient has an insulin pump. [facility] Medical History Diabetic gastroparesis delivery delivered History of marijuana use Hx of diabetic gastroparesis Diabetes mellitus with hyperglycemia Intractable cyclical vomiting with nausea Depression Compensated metabolic acidosis Dysuria UTI (urinary tract infection) Hypokalemia Type 1 diabetes Metabolic acidosis Leukocytosis DKA, type 1 Intractable abdominal pain Intractable nausea and vomiting Panic disorder Major depressive disorder, recurrent severe without psychotic features Substance abuse Kidney stones Kidney disease Smoker Intractable vomiting Type 1 diabetes Marfan syndrome PTSD (post-traumatic stress disorder) Borderline personality disorder Home Medications ?Medication ?Instructions ?Recorded ?Last Taken ?Type insulin lispro 100 unit/mL See Rx Instructions .Route .COMPLEX 04/27/23 06/06/24 History subcutaneous solution (Humalog U-100 Insulin) pen needle, diabetic 29 gauge x #100 ea 08/10/23 Unknown Rx 1/2 (Ultra-Thin II Insulin Pen [place]) risankizumab-rzaa 150 mg/mL 150 mg subcut .[id number] PSORIASIS 02/07/24 Unknown History subcutaneous pen injector (Skyrizi) Insulin Basal Pump (Pt's Own) 1.8 unit subcut UD diabetes ##0 06/11/24 Unknown Rx [Pump, Basal] albuterol sulfate 90 mcg/actuation 1 - 2 puff inhalation Q4H PRN PRN 08/01/24 Unknown Rx aerosol inhaler (Ventolin HFA) Wheezing ##1 doxepin 6 mg tablet 6 mg PO QHS insomnia 10/18/24 Unknown History promethazine 25 mg tablet 50 mg PO Q6H PRN nausea and 10/18/24 Unknown History vomiting quetiapine 50 mg tablet,extended 50 mg PO QHS mood 10/18/24 Unknown History release 24 hr cholecalciferol (vitamin D3) 1,250 1,250 mcg PO QWEEK 12/14/24 Unknown History mcg (50,000 unit) capsule plecanatide 3 mg tablet (Trulance) 3 mg PO DAILY 12/14/24 Unknown History haloperidol 5 mg tablet 5 mg PO TID PRN nausea and 12/16/24 Unknown Rx vomiting #20 tabs gabapentin 300 mg capsule 300 mg PO BID 01/08/25 Unknown History Allergy/AdvReac Type Severity Reaction Status Date / Time adhesive tape Allergy Intermediate Rash Verified 01/22/25 18:50 cephalexin (From Keflex) Allergy Intermediate yeast Verified 01/22/25 18:50 infection morphine Allergy Intermediate Rash Verified 01/22/25 18:50 oxycodone (From Percocet) Allergy Intermediate Rash Verified 01/22/25 18:50 ondansetron AdvReac I BLACK Verified 01/22/25 18:50 OUT AND LOSE CONTROL OF MY BLADDER Family History Mother Anxiety and depression Bipolar disorder PCOS (polycystic ovarian syndrome) Father Valvular heart disease Surgical History H/O tubal ligation History of loop recorder Hx of appendectomy Hx of eye surgery H/O aortic root repair Social History household members: spouse Smoking Status: Current every day smoker tobacco type: e-cigarettes Electronic Cigarette Use: with nicotine alcohol intake: never substance use type: marijuana ROS ROS ED Constitutional Constitutional ED: Denies chills, fever(s) or weight loss Eyes Eyes: Denies change in vision or diplopia ENT ENT ED: Denies ear pain, rhinorrhea or sore throat Cardiovascular Cardiovascular: Denies chest pain, orthopnea, palpitations or racing heartbeat Respiratory/Chest Respiratory/Chest: Denies cough, dyspnea or orthopnea Gastrointestinal Gastrointestinal: Reports abdominal pain, diarrhea, nausea and vomiting Genitourinary Genitourinary ED: Reports urinary frequency; Denies dysuria or hematuria Musculoskeletal Musculoskeletal: Denies arthralgias or myalgias Integumentary Denies abscess or rash Neurologic Neurologic: Denies headache(s) or weakness Psychiatric Psychiatric: Denies anxiety, depression, suicidal ideation or suicidal thoughts Endocrine Endocrinology: Reports polyuria; Denies polydipsia or polyphagia Allergic/Immunologic Allergic/Immunologic ED: Denies mouth swelling, tongue swelling or urticaria EXAM Physical Exam Narrative Exam Narrative: Patient retching and vomiting Const Vital Signs: 01/22/25 18:50 01/22/25 20:48 01/22/25 21:52 Temperature 97.3 F L 98 F Temperature Source Axillary Pulse Rate 100 113 H 92 Respiratory Rate 16 22 H 28 H Blood Pressure 112/75 128/84 H 118/48 L Blood Pressure Mean 87 98 71 Pulse Ox 98 98 97 Oxygen Delivery Method Room Air Room Air Positive well nourished and well developed General Appearance ED: well developed HEENT Reports normocephalic, head/scalp atraumatic and moist mucous membranes Eyes PERRL and EOMs intact bilaterally Neck no lymphadenopathy, supple and no JVD Resp normal respiratory effort and clear to auscultation bilaterally Cardio regular rate, regular rhythm and no murmurs GI Inspection: Negative for abdominal distention Auscultation: normoactive bowel sounds Palpation: soft and tender other (Diffuse tenderness no involuntary guarding or rebound); Negative for guarding or rebound tenderness present Back/Spine no CVA tenderness and normal ROM Extremity normal to inspection General Extremety ED: Negative for edema General Extremity: Negative for edema Neuro oriented x3 and CN's II-XII intact bilaterally Sensorium / Orientation: alert Motor Exam: strength 5/5 throughout Psych mental status grossly normal Mood & Affect: Negative for depressed or tearful Skin no rashes or lesions noted and no wounds MDM MDM MDM Narrative Medical decision making narrative: Differential diagnosis includes but not limited to DKA metabolic acidosis dehydration electrolyte abnormalities UTI Patient received IV fluids as well as Reglan. She also received lorazepam. White count returns at 24.1 hemoglobin of 14.8 platelet count of 141. Sodium 130 potassium 4.7 CO2 on her BMP is 6.3 with an anion gap of 32 BUN of 24 with a creatinine 1.1 glucose 507 beta hydroxybutyrate 6.8 test is negative LFTs showed alk phos of 109 urinalysis positive ketones no gross infection. VBG was obtained and reviewed showing pH 7.17 bicarb 8. Insulin ip was ordered as well as continued fluids. I will speak with the hospitalist regarding admission to the ICU for treatment of DKA. History & Record Review Discussion w/independent historian: Patient Additional record(s) reviewed:: Prior inpatient record, Prior ED visit and Prior labs Lab Data Attestation: I reviewed the patient's lab results. Labs: Laboratory Results - last 24 hr 01/22/25 01/22/25 01/22/25 19:14 19:45 20:20 WBC 24.1 H RBC 5.03 Hgb 14.8 Hct 45.2 MCV 89.9 MCH 29.4 MCHC 32.7 RDW Std Deviation 41.5 RDW Coeff of Joyce 12.6 Plt Count 141 L MPV 13.3 H Immature Gran % (Auto) 3.900 H Neut % (Auto) 86.2 H Lymph % (Auto) 6.5 L [place] % (Auto) 3.0 Eos % (Auto) 0.0 Baso % (Auto) 0.4 Absolute Neuts (auto) 20.8 H Absolute Lymphs (auto) 1.58 Nucleated RBC % 0 Sodium 130 L Potassium 4.7 Chloride 92 L Carbon Dioxide 6.3 L* Anion Gap 32 H BUN 24 H Creatinine 1.10 Est GFR (MDRD) Non-Af 69 BUN/Creatinine Ratio 21.4 H Glucose 507 H* Calcium 9.4 Total Bilirubin 0.96 Direct Bilirubin 0.40 H AST 16 ALT 11 Alkaline Phosphatase 109 H Total Protein 7.9 Albumin 4.6 Globulin 3.3 Lipase 11 L b-Hydroxybutyric mmol/L 6.8 Serum , Qual NEGATIVE Urine Color Yellow Urine Clarity Clear Urine pH 5.0 Ur Specific [place] 1.020 Urine Protein 30 H Urine Glucose (UA) 1000 H Urine Ketones 150 A* Urine Occult Blood Negative Urine Nitrite Negative Urine Bilirubin Negative Urine Urobilinogen Normal Ur Leukocyte Esterase Negative Urine RBC 0-5 SEEN Urine WBC 0-5 SEEN Ur Squamous Epith Cells 0-5 SEEN Urine Bacteria 1+ Urine Mucus 0 SEEN POC Glucose 492 H* ABG Data ABG results: ABG 01/22/25 20:33 Specimen Type ISABELLE Sample Site Not entered VBG pH 7.17 L* VBG pO2 48 H VBG HCO3 8 L VBG Total CO2 8 L VBG O2 Sat (Calc) 74 H VBG Base Excess -21 L POC Mix VBG pCO2 Pt Tmp 20.8 L O2 Delivery Device Not entered Crit Call To/Read Back Yes Management Discussion w/another healthcare provider: Hospitalist (Dr Smith) Critical Care Time Critical Care Time: Yes Critical care time (excluding procedures): 30-74 minutes (32 min), Including time spent:, Discussing w/Patient &/or Family/Lollypop Machine Operator, Discussing w/Consultants, Arranging Admission or Transfer and Performing Direct Patient Care at Bedside Discharge Plan Dx/Rx/DC Orders Clinical Impression: DKA (diabetic ketoacidosis), Diabetic gastroparesis, Vomiting, Metabolic acidosis Disposition Disposition: Acute Care Hospital [facility]
[2025-01-22] MEDS: 0.9% Normal Saline (1000mL) 1,000 ML 1000 ML IV ×2 (20:13→21:20)
[2025-01-22] MEDS: Lorazepam 2 MG/ML WCH Syringe 0.5 MG IV (20:14)
[2025-01-22] MEDS: Metoclopramide 10 MG/2 ML Vial 5 MG IV ×2 (20:14→21:22)
[2025-01-22 20:24] LABS: Absolute Lymphocyte Count 1.58 X10^3/uL (0.83-4.51); Absolute Neutrophil Count 20.8 X10^3/uL (2.0-7.7); Basophil% 0.4 % (0-1); Eosinophil# 0.01 X10^3/uL; Hematocrit 45.2 % (37-47); Hemoglobin 14.8 g/dL (12.0-15.0); Lymphocyte # 1.58 X10^3/ul (0.83-4.51); Lymphocyte % 6.5 % (19-41); Mean Corp Hgb Conc 32.7 g/dL (32-36); Mean Corpuscular Hgb 29.4 pg (27.0-32.0); Mean Corpuscular Volume 89.9 fL (81-99); Mean Platelet Vol. 13.3 fl (6.2-12.0); Monocyte# 0.73 X10^3/uL; NRBC Flagged by Analyzer 0 % (0-5); Neutrophil # 20.78 X10^3/uL (2.7-7.7); Neutrophil % 86.2 % (47-70); POSITIVE DIFFERENTIAL YES; Platelet Count 141 K/mm3 (150-450); RBC Distribution Width CV 12.6 % (11.6-14.6); RBC Distribution Width SD 41.5 fl (35.1-43.9); Red Blood Count 5.03 M/mm3 (4.2-5.4); White Blood Count 24.1 K/mm3 (4.4-11.0)
[2025-01-22 20:28] LABS: Mucous, Urine 0 SEEN /hpf (<or=2+)
[2025-01-22 20:35] LABS: Differential Indicated SCAN CRITERIA MET
[2025-01-22 20:36] LABS: Blood Gas Specimen Type VEN; O2 Delivery Device Not entered; SITE Not entered; VBG BASE EXCESS -21 mmol/L (-1.0-3.5); VBG Bicarbonate 8 mmol/L (22-26); VBG PO2 48 mmHg (25-40); VBG SO2 74 % (50-70); VBG TCO2 8 mmol/L (23-33); VBG pCO2 20.8 mmHg (41-51); VBG pH 7.17 (7.32-7.42)
[2025-01-22 20:37] LABS: Color, Urine Yellow (Yellow); Glucose, Dipstick 1000 mg/dl (Normal); Leukocyte Esterase-Dipstick Negative /ul (Negative); Nitrite-Dipstick Negative (Negative); Occult Blood-Urine Negative /ul (Negative); Protein-Dipstick 30 mg/dl (Negative); Urine Bilirubin Dipstick Negative (Negative); Urine Clarity Clear (Clear); Urine Urobilinogen Normal (Normal)
[2025-01-22 20:38] LABS: Internal QC Validated? YES +Cl - CLEAR BKGD; Pregnancy, Serum, hCG Quali. NEGATIVE Negative
[2025-01-22 20:40] LABS: Lipase 11 U/L (13-75)
[2025-01-22 20:41] LABS: BETA-HYDROXYBUTYRATE 6.8 mmol/L (0.0-0.3)
[2025-01-22] MEDS: Famotidine 200 MG/20 ML MDV 20 MG in 0.9% Normal Saline (Pres. free 8 ML 300 MG IV (20:47)
[2025-01-22 20:48] VITALS: BP 128/84; PULSE 113; RESP 22; O2SAT 98
[2025-01-22 20:57] LABS: AST(SGOT) 16 U/L (<=31); Alanine Aminotransfer ALT/SGPT 11 U/L (<=34); Albumin, Serum 4.6 g/dL (3.5-5.0); Alkaline Phosphatase 109 U/L (35-104); Anion Gap 32 (5-15); BUN 24 mg/dL (4-19); BUN/Creat Ratio 21.4 RATIO (10-20); Calcium,Total 9.4 mg/dL (7.6-11.0); Carbon Dioxide 6.3 mmol/L (21.0-32.0); Chloride 92 mmol/L (98-108); EST Glomerular Filtration Rate 69 (>60); Globulin 3.3 g/dL (2.2-4.2); Glucose 507 mg/dL (70-99); Potassium 4.7 mmol/L (3.3-5.1); Protein, Total 7.9 g/dL (5.9-8.4); Sodium Level 130 mmol/L (133-145); Total Bilirubin 0.96 mg/dL (0.00-1.30)
[2025-01-22 20:59] LABS: Ketone-Dipstick 150 mg/dl (Negative)
[2025-01-22 21:09] LABS: Squamous Epithelial Cells - UA 0-5 SEEN /hpf (5-10)
[2025-01-22 21:10] LABS: Bacteria 1+ /hpf (None Seen)
[2025-01-22 21:14] LABS: Red Blood Cells-Urine 0-5 SEEN /hpf (0-5)
[2025-01-22 21:15] LABS: White Blood Cells 0-5 SEEN /hpf (0-5)
[2025-01-22 21:26] VITALS: BMI 24.8
[2025-01-22] MEDS: Insulin Lispro 100 UNIT in 0.9% Normal Saline (100mL Bag) 99 ML 7.4 UNIT CONT INF (21:48)
[2025-01-22 21:52] VITALS: BP 118/48; PULSE 92; RESP 28; TEMP 36.6; O2SAT 97
[2025-01-22 22:00] VITALS: BP 122/51; PULSE 94; RESP 12; O2SAT 99
[2025-01-22 22:09] LABS: Bedside Glucose > 500 mg/dL (74-106)
[2025-01-22 22:32] LABS: Differential Comment SCANNED
[2025-01-22 22:33] LABS: Platelet Estimate SLT DEC (ADEQ)
[2025-01-22 23:10] LABS: Bedside Glucose 369 mg/dL (74-106)
--- NOTE | 2025-01-22 23:16 | HP.PCM.HOS_ITS ---
HPI - General General Date of Admission: 01/22/25 HPI Narrative THEODORE VILLA, is a 29 F who presents to the hospital with nausea vomiting and feeling unwell. She has a history of type 1 diabetes on a insulin pump as well as gastroparesis. She also had past issues with hyperemesis from cannabis. She states that around 4:00 this afternoon she started having nausea and vomiting and noticed that her blood sugars were high into the 500s. Though she states that prior to this including this morning her blood sugars were normal. In the ER she was significantly acidotic with a bicarb of 6.3, she did have a leukocytosis though no other signs of infection, VBG pH 7.17, creatinine was stable but her blood sugar was 507 with a beta hydroxybutyrate level of 6.8 consistent with DKA. [facility] Medical History Diabetic gastroparesis delivery delivered History of marijuana use Hx of diabetic gastroparesis Diabetes mellitus with hyperglycemia Intractable cyclical vomiting with nausea Depression Compensated metabolic acidosis Dysuria UTI (urinary tract infection) Hypokalemia Type 1 diabetes Metabolic acidosis Leukocytosis DKA, type 1 Intractable abdominal pain Intractable nausea and vomiting Panic disorder Major depressive disorder, recurrent severe without psychotic features Substance abuse Kidney stones Kidney disease Smoker Intractable vomiting Type 1 diabetes Marfan syndrome PTSD (post-traumatic stress disorder) Borderline personality disorder Home Medications ?Medication ?Instructions ?Recorded ?Last Taken ?Type insulin lispro 100 unit/mL See Rx Instructions .Route .COMPLEX 04/27/23 06/06/24 History subcutaneous solution (Humalog U-100 Insulin) pen needle, diabetic 29 gauge x #100 ea 08/10/23 Unkno wn Rx 1/2 (Ultra-Thin II Insulin Pen [place]) risankizumab-rzaa 150 mg/mL 150 mg subcut .[id number] PS ORIASIS 02/07/24 Unknown History subcutaneous pen injector (Skyrizi) Insulin Basal Pump (Pt's Own) 1.8 unit subcut UD diabe edison ##0 06/11/24 Unknown Rx [Pump, Basal] albuterol sulfate 90 mcg/actuation 1 - 2 puff inhalati on Q4H PRN PRN 08/01/24 Unknown Rx aerosol inhaler (Ventolin HFA) Wheezing ##1 doxepin 6 mg tablet 6 mg PO QHS insomnia 5 Unknown History promethazine 25 mg tablet 50 mg PO Q6H PRN nausea and 10/18/24 Unknown History vomiting quetiapine 50 mg tablet,extended 50 mg PO QHS mood Unknown History release 24 hr cholecalciferol (vitamin D3) 1,250 1,250 mcg PO QWEEK 12/14/24 Unknown History mcg (50,000 unit) capsule plecanatide 3 mg tablet (Trulance) 3 mg PO DAILY 12/14 Unknown History haloperidol 5 mg tablet 5 mg PO TID PRN nausea and 0 12/16/24 Unknown Rx vomiting #20 tabs gabapentin 300 mg capsule 300 mg PO BID 01/08/25 Unkno wn History Allergy/AdvReac Type Severity Reaction Status Date / Time adhesive tape Allergy Intermediate Rash Verified 01/22/25 18:50 cephalexin (From Keflex) Allergy Intermediate yeast Verified 01/22/25 18:50 infection morphine Allergy Intermediate Rash Verified 01/22/25 18:50 oxycodone (From Percocet) Allergy Intermediate Rash Verified 01/22/25 18:50 ondansetron AdvReac I BLACK Verified 01/22/25 18:50 OUT AND LOSE CONTROL OF MY BLADDER Family History Mother Anxiety and depression Bipolar disorder PCOS (polycystic ovarian syndrome) Father Valvular heart disease Surgical History H/O tubal ligation History of loop recorder Hx of appendectomy Hx of eye surgery H/O aortic root repair Social History household members: spouse Smoking Status: Current every day smoker tobacco type: e-cigarettes Electronic Cigarette Use: with nicotine alcohol intake: never substance use type: marijuana ROS Constitutional Constitutional: Reports fatigue and malaise; Denies chills or fever(s) Eyes Eyes: Denies blurry vision ENT HEENT: Denies headache(s) or nasal discharge Cardiovascular Cardiovascular: Denies chest pain, dyspnea on exertion or syncope Respiratory/Chest Respiratory/Chest: Denies cough, shortness of breath at rest or shortness of breath with exertion Gastrointestinal Gastrointestinal: Reports nausea and vomiting; Denies constipation or diarrhea Genitourinary Genitourinary: Denies dysuria Neurologic Neurologic: Denies focal weakness, numbness or tremor(s) Psychiatric Psychiatric: Denies anxiety or depression Vital Signs Vital Signs Vital Signs: 01/22/25 18:50 01/22/25 20:48 01/22/25 21:52 Temperature 97.3 F L 98 F Temperature Source Axillary Pulse Rate 100 113 H 92 Respiratory Rate 16 22 H 28 H Blood Pressure 112/75 128/84 H 118/48 L Blood Pressure Mean 87 98 71 Pulse Ox 98 98 97 Oxygen Delivery Method Room Air Room Air 01/22/25 22:00 Temperature Temperature Source Pulse Rate 94 Respiratory Rate 12 Blood Pressure 122/51 H Blood Pressure Mean 74 Pulse Ox 99 Oxygen Delivery Method Room Air Weight Weight: 163 lb 9.328 oz Body Mass Index (BMI) 24.8 Physical Exam Narrative General: Drowsy, Oriented x3, Cooperative HEENT: Atraumatic, PERRLA, EOMI, Normocephalic Oral: Dry mucosa Neck: Supple, No JVD Lungs: Diminished, Normal air movement, No rhonchi, No wheeze, No rales Cardiovascular: Tachycardic, Regular Rhythm, Normal S1, Normal S2, No murmurs Abdomen: Soft, Non Tender, Non-Distended, No Hepato-splenomegaly Extremities: No edema, Capillary Refill Less than 3 Seconds Skin: No rashes, No breakdown Musculoskeletal: No Tenderness to Palpation of Joints or Extremities Neurological: No focal neurological deficits, moves all extremities Psych/Mental Status: Flat Results Lab / Micro Data 01/22/25 19:45 01/22/25 19:45 Labs: Laboratory Results - last 24 hr 01/22/25 19:14: POC Glucose 492 H* 01/22/25 19:45: WBC 24.1 H, RBC 5.03, Hgb 14.8, Hct 45.2, MCV 89.9, MCH 29.4, MCHC 32.7, RDW Std Deviation 41.5, RDW Coeff of Joyce 12.6, Plt Count 141 L, MPV 13.3 H, Immature Gran % (Auto) 3.900 H, Neut % (Auto) 86.2 H, Lymph % (Auto) 6.5 L, [place] % (Auto) 3.0, Eos % (Auto) 0.0, Baso % (Auto) 0.4, Absolute Neuts (auto) 20.8 H, Absolute Lymphs (auto) 1.58, Nucleated RBC % 0, Differential Comment SCANNED, Platelet Estimate SLT DEC, Sodium 130 L, Potassium 4.7, Chloride 92 L, Carbon Dioxide 6.3 L*, Anion Gap 32 H, BUN 24 H, Creatinine 1.10, Est GFR (MDRD) Non-Af 69, BUN/Creatinine Ratio 21.4 H, Glucose 507 H*, Calcium 9.4, Total Bilirubin 0.96, Direct Bilirubin 0.40 H, AST 16, ALT 11, Alkaline Phosphatase 109 H, Total Protein 7.9, Albumin 4.6, Globulin 3.3, Lipase 11 L, b- Hydroxybutyric mmol/L 6.8, Serum , Qual NEGATIVE 01/22/25 20:20: Urine Color Yellow, Urine Clarity Clear, Urine pH 5.0, Ur Specific [place] 1.020, Urine Protein 30 H, Urine Glucose (UA) 1000 H, Urine Ketones 150 A*, Urine Occult Blood Negative, Urine Nitrite Negative, Urine Bilirubin Negative, Urine Urobilinogen Normal, Ur Leukocyte Esterase Negative, Urine RBC 0-5 SEEN, Urine WBC 0-5 SEEN, Ur Squamous Epith Cells 0-5 SEEN, Urine Bacteria 1+, Urine Mucus 0 SEEN 01/22/25 21:46: POC Glucose > 500 H* 01/22/25 22:50: POC Glucose 369 H ABG Data ABG results: ABG 01/22/25 20:33 Specimen Type ISABELLE Sample Site Not entered VBG pH 7.17 L* VBG pO2 48 H VBG HCO3 8 L VBG Total CO2 8 L VBG O2 Sat (Calc) 74 H VBG Base Excess -21 L POC Mix VBG pCO2 Pt Tmp 20.8 L O2 Delivery Device Not entered Crit Call To/Read Back Yes Assessment & Plan Assessment/Plan (1) DKA (diabetic ketoacidosis): PLAN: Plan 1. DKA in the setting of type 1 diabetes ? Continue with an insulin drip and aggressive IV fluids ? Will not use her own insulin pump ? Given the significance of her acidosis we will give her an amp of bicarb and recheck her BMP once she is up in the ICU ? Her bicarb is 6.3 with an anion gap metabolic acidosis of 32 ? Serum butyric acid is 6.8 and her urine ketones are 150 ? Will continue with the DKA protocol and allow nursing replacement for electrolyte derangements 2. History of PTSD/borderline personality disorder/insomnia ? Can resume her home medications when she becomes little bit more alert, she takes Seroquel and doxepin ? She also has listed on her med rec Haldol and gabapentin, her gabapentin is supposed to be as needed and her Haldol was only for a few days in November ? Stable 3. History of psoriasis ? She is on outpatient Skyrizi DVT: Lovenox 75 minutes was spent on direct patient care, including documentation as well as chart review and collaboration with colleagues Charges/Coding Visit Charges Inpatient E&M: 87300 Init Hosp L3
[2025-01-23] VITALS (25 sets, daily range): BP systolic 85–138; BP diastolic 32–110; PULSE 44–127; RESP 13–25; TEMP 36.3–36.4; O2SAT 95–100; BMI 24.3
[2025-01-23] MEDS: Metoclopramide 10 MG/2 ML Vial 5 MG IV ×2 (00:38→08:55)
[2025-01-23] MEDS: 0.9% Normal Saline (1000mL) 1,000 ML 999 ML IV ×2 (00:38→15:20)
[2025-01-23] MEDS: Sodium Bicarbonate 8.4% 50 ML Syringe 50 MEQ IV ×2 (00:48→02:37)
[2025-01-23 01:05] LABS: Anion Gap 26 (5-15); BUN 21 mg/dL (4-19); BUN/Creat Ratio 21.2 RATIO (10-20); Calcium,Total 8.4 mg/dL (7.6-11.0); Carbon Dioxide 7.2 mmol/L (21.0-32.0); Chloride 102 mmol/L (98-108); Creatinine, Serum 1.01 mg/dL (0.70-1.20); EST Glomerular Filtration Rate 77 (>60); Estimated Creatinine Clearance 82.16 ml/min (50-250); Glucose 330 mg/dL (70-99); Potassium 4.4 mmol/L (3.3-5.1); Sodium Level 135 mmol/L (133-145)
[2025-01-23] MEDS: 0.9% Saline Lock 10 ML Syringe IV (02:25)
[2025-01-23] MEDS: 0.9% Normal Saline (1000mL) 1,000 ML 500 ML IV (02:27)
[2025-01-23 03:24] LABS: Bedside Glucose 258 mg/dL (74-106)
[2025-01-23 03:24] LABS: Bedside Glucose 253 mg/dL (74-106)
[2025-01-23 03:24] LABS: Bedside Glucose 286 mg/dL (74-106)
[2025-01-23 03:24] LABS: Bedside Glucose 269 mg/dL (74-106)
[2025-01-23 04:34] LABS: Bedside Glucose 230 mg/dL (74-106)
[2025-01-23 04:39] LABS: Hemoglobin 12.1 g/dL (12.0-15.0); Lymphocyte % 4.6 % (19-41); Mean Corp Hgb Conc 33.6 g/dL (32-36); Mean Corpuscular Hgb 29.8 pg (27.0-32.0); Mean Corpuscular Volume 88.7 fL (81-99); Monocyte% 2.1 % (0-10); Neutrophil % 89.2 % (47-70); POSITIVE DIFFERENTIAL YES; Platelet Count 122 K/mm3 (150-450); RBC Distribution Width CV 12.9 % (11.6-14.6); RBC Distribution Width SD 42.1 fl (35.1-43.9); Red Blood Count 4.06 M/mm3 (4.2-5.4); White Blood Count 26.3 K/mm3 (4.4-11.0)
[2025-01-23 04:40] LABS: Absolute Lymphocyte Count 1.22 X10^3/uL (0.83-4.51); Absolute Neutrophil Count 23.4 X10^3/uL (2.0-7.7); Basophil% 0.4 % (0-1); Lymphocyte # 1.22 X10^3/ul (0.83-4.51); Monocyte# 0.56 X10^3/uL; NRBC Flagged by Analyzer 0 % (0-5); Neutrophil # 23.41 X10^3/uL (2.7-7.7)
[2025-01-23 04:57] LABS: Differential Indicated SCAN CRITERIA MET
[2025-01-23] MEDS: 0.9% Normal Saline (1000mL) 1,000 ML 250 ML IV (05:01)
[2025-01-23] MEDS: proCHLORPERazine 10 MG/2 ML Vial 5 MG IV ×2 (05:15→13:04)
[2025-01-23 05:34] LABS: Anion Gap 20 (5-15); BUN 16 mg/dL (4-19); BUN/Creat Ratio 19.6 RATIO (10-20); Calcium,Total 7.5 mg/dL (7.6-11.0); Chloride 109 mmol/L (98-108); Creatinine, Serum 0.83 mg/dL (0.70-1.20); EST Glomerular Filtration Rate 98 (>60); Estimated Creatinine Clearance 99.98 ml/min (50-250); Glucose 247 mg/dL (70-99); Potassium 4.4 mmol/L (3.3-5.1); Sodium Level 139 mmol/L (133-145)
[2025-01-23 05:45] LABS: Differential Comment SCANNED
[2025-01-23 05:53] LABS: Bedside Glucose 217 mg/dL (74-106)
--- NOTE | 2025-01-23 06:18 | CPS ---
Critical pH 7.16 on [place] gas, handed copy of blood gas to Tammi SALEEM. She acknowledged.
[2025-01-23] MEDS: Sodium Bicarbonate 50 MEQ in Dextrose 5%-Water (1000mL Bag) 1,000 ML 100 MEQ IV (06:19)
[2025-01-23 07:31] LABS: Bedside Glucose 214 mg/dL (74-106)
[2025-01-23 07:31] LABS: Bedside Glucose 203 mg/dL (74-106)
[2025-01-23 08:21] LABS: Bedside Glucose 200 mg/dL (74-106)
[2025-01-23 08:36] LABS: Anion Gap 18 (5-15); BUN 13 mg/dL (4-19); BUN/Creat Ratio 16.2 RATIO (10-20); Calcium,Total 7.6 mg/dL (7.6-11.0); Chloride 111 mmol/L (98-108); Creatinine, Serum 0.81 mg/dL (0.70-1.20); EST Glomerular Filtration Rate 100 (>60); Estimated Creatinine Clearance 102.45 ml/min (50-250); Glucose 209 mg/dL (70-99); Potassium 4.5 mmol/L (3.3-5.1); Sodium Level 140 mmol/L (133-145)
[2025-01-23 09:14] LABS: Bedside Glucose 177 mg/dL (74-106)
[2025-01-23] MEDS: Dextrose 5%-0.2% NS 1,000 ML 200 ML IV ×3 (10:42→20:31)
[2025-01-23] MEDS: Enoxaparin 40 MG/0.4 ML Syringe SC (10:43)
[2025-01-23 11:04] LABS: Bedside Glucose 156 mg/dL (74-106)
[2025-01-23] MEDS: QUEtiapine 25 MG Tablet PO ×2 (11:09→23:55)
[2025-01-23 12:32] LABS: Bedside Glucose 176 mg/dL (74-106)
[2025-01-23 12:48] LABS: Anion Gap 16 (5-15); BUN 12 mg/dL (4-19); BUN/Creat Ratio 16.3 RATIO (10-20); Calcium,Total 7.6 mg/dL (7.6-11.0); Carbon Dioxide 12.5 mmol/L (21.0-32.0); Chloride 110 mmol/L (98-108); Creatinine, Serum 0.72 mg/dL (0.70-1.20); EST Glomerular Filtration Rate 115 (>60); Estimated Creatinine Clearance 115.25 ml/min (50-250); Glucose 176 mg/dL (70-99); Potassium 3.7 mmol/L (3.3-5.1); Sodium Level 138 mmol/L (133-145)
[2025-01-23 13:30] LABS: Bedside Glucose 127 mg/dL (74-106)
--- NOTE | 2025-01-23 14:08 | CASEMGMT ---
RN CM weed cutter CM to room to meet with pt for initial transition planning/care coordination assessment. RN CM introduced self and role at [facility], pt voices understanding and consents to assessment. Pt is A&O, restless, and w/frequent dry cough. It too several attempts to ask questions before pt would answer and pt only provided brief responses. Care providers, pharmacy, and demographics verified/updated. Strata Score: 3 PCP: Appt was scheduled for pt during previous admission for December 02 @ [facility]. Pt states I think so when inquired if she went to that appt. She states she does not have any f/u appt scheduled that she can recall. Specialists: Dr Hylton, GI @ [facility]; Dr Avendano, Endocrinology; Dr Swartz, toe closing machine tender; Dr Meyers, toe closing machine tender; Dr Carvalho, logistics engineer; Gracie line mechanic Preferred Pharmacy: [facility] Insurance: My Care [facility] Prescription Benefit: yes LNOK: Tiffanie Donis, sig other Living Arrangements: Pt lives with sig other and her 11 yr-old dtr in an upstairs duplex with 16 steps to enter with a rail. Pt reports she is I in ADL's. She has an aide through waiver program to help in the home. SW, Erin, made aware. Pt denies concerns at home. Transportation: Pt uses the bus for transportation. Tiffanie also does not drive. Pt is not sure how she is going to get home. DME:BP cuff. Pt states she has a functioning BGM and insulin pump with sufficient supply of insulin and testing supplies. Noted during prior admission a script for BGM was given to pt. Pt states she did not end up getting it but yet states re-stated that she has a BGM and supplies and does not need anything else. HHC/SNF: Pt has had HHC in the past but cannot recall the name of the agency. Pt denies SNF stays. Pt states no concerns with going home at time of dc. Pt states no further concerns/needs. CM to follow. Advised pt to ask CM if any further questions/concerns/needs arise, voices understanding. Plan: Home. Follow for any diabetic supplies/needs. Follow for possible need of transportation home. Ramos WATSONN RN CM
[2025-01-23 14:37] LABS: Bedside Glucose 120 mg/dL (74-106)
--- NOTE | 2025-01-23 15:14 | PN_ITS ---
Subjective Subjective Patient seen and examined. She was admitted with a complaint of nausea and vomiting and found to be in DKA. She is a type I diabetic and has been admitted several times for DKA. Review of systems otherwise negative. Anion gap was still elevated this morning. She is on insulin drip. Objective Data Objective Data Vital Signs: Vital Signs Temp Pulse Resp BP Pulse Ox O2 Del Method 97.5 F L 65 20 H 100/43 L 95 Room Air 01/23/25 11:00 01/23/25 11:00 01/23/25 11:00 01/23/25 11:00 01/23/25 11:00 01/23/25 11:00 Oxygen Delivery Method Room Air Weight: 159 lb 9.835 oz Body Mass Index (BMI) 24.3 Intake & Output: Intake and Output for Last 24 Hours 01/21/25 01/22/25 01/23/25 23:59 23:59 23:59 Intake Total 1017.65 / 1021.97 4357.46 / 4357.46 Output Total 1800 / 1800 Balance 1017.65 / 1021.97 2557.46 / 2557.46 Lab / Micro Data 01/23/25 04:19 01/23/25 12:00 Labs: Laboratory Results - last 24 hr 01/22/25 19:14: POC Glucose 492 H* 01/22/25 19:45: WBC 24.1 H, RBC 5.03, Hgb 14.8, Hct 45.2, MCV 89.9, MCH 29.4, MCHC 32.7, RDW Std Deviation 41.5, RDW Coeff of Joyce 12.6, Plt Count 141 L, MPV 13.3 H, Immature Gran % (Auto) 3.900 H, Neut % (Auto) 86.2 H, Lymph % (Auto) 6.5 L, [place] % (Auto) 3.0, Eos % (Auto) 0.0, Baso % (Auto) 0.4, Absolute Neuts (auto) 20.8 H, Absolute Lymphs (auto) 1.58, Nucleated RBC % 0, Differential Comment SCANNED, Platelet Estimate SLT DEC, Sodium 130 L, Potassium 4.7, Chloride 92 L, Carbon Dioxide 6.3 L*, Anion Gap 32 H, BUN 24 H, Creatinine 1.10, Est GFR (MDRD) Non-Af 69, BUN/Creatinine Ratio 21.4 H, Glucose 507 H*, Calcium 9.4, Total Bilirubin 0.96, Direct Bilirubin 0.40 H, AST 16, ALT 11, Alkaline Phosphatase 109 H, Total Protein 7.9, Albumin 4.6, Globulin 3.3, Lipase 11 L, b- Hydroxybutyric mmol/L 6.8, Serum , Qual NEGATIVE 01/22/25 20:20: Urine Color Yellow, Urine Clarity Clear, Urine pH 5.0, Ur Specific [place] 1.020, Urine Protein 30 H, Urine Glucose (UA) 1000 H, Urine Ketones 150 A*, Urine Occult Blood Negative, Urine Nitrite Negative, Urine Bilirubin Negative, Urine Urobilinogen Normal, Ur Leukocyte Esterase Negative, Urine RBC 0-5 SEEN, Urine WBC 0-5 SEEN, Ur Squamous Epith Cells 0-5 SEEN, Urine Bacteria 1+, Urine Mucus 0 SEEN 01/22/25 21:46: POC Glucose > 500 H* 01/22/25 22:50: POC Glucose 369 H 01/22/25 23:57: POC Glucose 286 H 01/22/25 23:58: Sodium 135, Potassium 4.4, Chloride 102, Carbon Dioxide 7.2 L*, Anion Gap 26 H, BUN 21 H, Creatinine 1.01, Estim Creat Clear Calc 82.16, Est GFR (MDRD) Non-Af 77, BUN/Creatinine Ratio 21.2 H, Glucose 330 H, Calcium 8.4 01/23/25 01:02: POC Glucose 253 H 01/23/25 02:11: POC Glucose 269 H 01/23/25 03:05: POC Glucose 258 H 01/23/25 04:02: POC Glucose 230 H 01/23/25 04:19: WBC 26.3 H, RBC 4.06 L, Hgb 12.1, Hct 36.0 L, MCV 88.7, MCH 29.8, MCHC 33.6, RDW Std Deviation 42.1, RDW Coeff of Joyce 12.9, Plt Count 122 L, MPV 13.0 H, Immature Gran % (Auto) 3.700 H, Neut % (Auto) 89.2 H, Lymph % (Auto) 4.6 L, [place] % (Auto) 2.1, Eos % (Auto) 0.0, Baso % (Auto) 0.4, Absolute Neuts (auto) 23.4 H, Absolute Lymphs (auto) 1.22, Nucleated RBC % 0, Differential Comment SCANNED, Sodium 139, Potassium 4.4, Chloride 109 H, Carbon Dioxide 9.9 L*, Anion Gap 20 H, BUN 16, Creatinine 0.83, Estim Creat Clear Calc 99.98, Est GFR (MDRD) Non-Af 98, BUN/Creatinine Ratio 19.6, Glucose 247 H, Calcium 7.5 L 01/23/25 04:59: POC Glucose 217 H 01/23/25 06:12: POC Glucose 203 H 01/23/25 07:05: POC Glucose 214 H 01/23/25 08:00: Sodium 140, Potassium 4.5, Chloride 111 H, Carbon Dioxide 11.0 L , Anion Gap 18 H, BUN 13, Creatinine 0.81, Estim Creat Clear Calc 102.45, Est GFR (MDRD) Non-Af 100, BUN/Creatinine Ratio 16.2, Glucose 209 H, Calcium 7.6 01/23/25 08:01: POC Glucose 200 H 01/23/25 08:52: POC Glucose 177 H 01/23/25 10:40: POC Glucose 156 H 01/23/25 12:00: Sodium 138, Potassium 3.7, Chloride 110 H, Carbon Dioxide 12.5 L , Anion Gap 16 H, BUN 12, Creatinine 0.72, Estim Creat Clear Calc 115.25, Est GFR (MDRD) Non-Af 115, BUN/Creatinine Ratio 16.3, Glucose 176 H, Calcium 7.6 01/23/25 12:11: POC Glucose 176 H 01/23/25 13:11: POC Glucose 127 H 01/23/25 14:18: POC Glucose 120 H ABG Data ABG results: ABG 01/22/25 20:33 Specimen Type ISABELLE Sample Site Not entered VBG pH 7.17 L* VBG pO2 48 H VBG HCO3 8 L VBG Total CO2 8 L VBG O2 Sat (Calc) 74 H VBG Base Excess -21 L POC Mix VBG pCO2 Pt Tmp 20.8 L O2 Delivery Device Not entered Crit Call To/Read Back Yes Physical Exam Const alert and oriented x3 Constitutional Narrative: looks uncomfortable due to nausea and vomiting General Appearance: cooperative HEENT normocephalic and head/scalp atraumatic Mouth: dry mucous membranes Eyes EOMs intact bilaterally Neck no lymphadenopathy and supple Lymph Lymphatic: no lymphedema noted Resp normal respiratory effort, normal air movement and clear to auscultation bilaterally Cardio regular rate, regular rhythm, S1 normal heart sound, S2 normal heart sound and no murmurs GI normal to inspection, nondistended, normoactive bowel sounds, soft to palpation, non-tender and non-distended Extremity normal capillary refill, no clubbing, cyanosis or edema and no calf tenderness General Extremity: no tenderness to palpation of joints or extremities Skin General Skin Exam: no breakdown Neuro no focal motor deficits Speech: speech normal Motor Exam: general weakness Psych cooperative Psych Narrative: uncomfortable due to the nausea and vomiting Activity / Motor Behavior: restless Assessment & Plan Assessment/Plan (1) Metabolic acidosis: (2) DKA (diabetic ketoacidosis): PLAN: Plan #DKA * admitted with a complaint of nausea and vomiting and found to be in DKA * still has an elevated anion gap though it is trending down * continue IVF administraiton per DKA protocol * replace electrolyte derangements per protocol * #History of PTSD and borderline personality disorder: On Seroquel and doxepin #Leucocytosis: wbc is 26.3. Likely reactive. No clear evidence of infection. Will monitor for now #History of psoriasis: on skyrizi #History of cannabis use disorder: She has a medical marijuana card and says she was medical marijuana. #DVT prophylaxis: Lovenox Charges/Coding Visit Charges Inpatient E&M: 50460 Subs Hosp L3
[2025-01-23 15:22] LABS: Bedside Glucose 127 mg/dL (74-106)
--- NOTE | 2025-01-23 15:44 | CASEMGMT ---
Social Work Pt has services through [facility] [facility] Waiver program. Pt CM is Leandra Sanchez. Pt states she has an aid and home delivered meals. SW updated pt BALJIT Mobley of pt hospital admission. SW to notify Leandra of pt discharge. MICHELLE Hicks
[2025-01-23 16:29] LABS: Bedside Glucose 128 mg/dL (74-106)
[2025-01-23 17:19] LABS: Anion Gap 13 (5-15); BUN 10 mg/dL (4-19); BUN/Creat Ratio 14.4 RATIO (10-20); Calcium,Total 7.5 mg/dL (7.6-11.0); Carbon Dioxide 13.6 mmol/L (21.0-32.0); Chloride 112 mmol/L (98-108); Creatinine, Serum 0.69 mg/dL (0.70-1.20); EST Glomerular Filtration Rate 120 (>60); Estimated Creatinine Clearance 120.26 ml/min (50-250); Glucose 139 mg/dL (70-99); Potassium 3.4 mmol/L (3.3-5.1); Sodium Level 139 mmol/L (133-145)
[2025-01-23 17:36] LABS: Bedside Glucose 136 mg/dL (74-106)
[2025-01-23 18:29] LABS: Bedside Glucose 145 mg/dL (74-106)
[2025-01-23 19:18] LABS: Bedside Glucose 134 mg/dL (74-106)
[2025-01-23 20:20] LABS: Bedside Glucose 134 mg/dL (74-106)
[2025-01-23 20:37] LABS: Anion Gap 10 (5-15); BUN 8 mg/dL (4-19); BUN/Creat Ratio 11.7 RATIO (10-20); Calcium,Total 7.7 mg/dL (7.6-11.0); Carbon Dioxide 16.8 mmol/L (21.0-32.0); Chloride 112 mmol/L (98-108); Creatinine, Serum 0.64 mg/dL (0.70-1.20); EST Glomerular Filtration Rate 122 (>60); Estimated Creatinine Clearance 129.66 ml/min (50-250); Glucose 150 mg/dL (70-99); Potassium 3.2 mmol/L (3.3-5.1); Sodium Level 139 mmol/L (133-145)
[2025-01-23 21:19] LABS: Bedside Glucose 170 mg/dL (74-106)
[2025-01-23 22:14] LABS: Bedside Glucose 150 mg/dL (74-106)
[2025-01-24] VITALS (21 sets, daily range): BP systolic 89–148; BP diastolic 42–124; PULSE 50–94; RESP 16–28; TEMP 36.1–37.2; O2SAT 96–100; BMI 25.9
[2025-01-24 00:19] LABS: Bedside Glucose 115 mg/dL (74-106)
[2025-01-24 00:19] LABS: Bedside Glucose 143 mg/dL (74-106)
[2025-01-24 00:49] LABS: Anion Gap 9 (5-15); BUN 6 mg/dL (4-19); BUN/Creat Ratio 8.6 RATIO (10-20); Calcium,Total 7.8 mg/dL (7.6-11.0); Carbon Dioxide 18.6 mmol/L (21.0-32.0); Chloride 113 mmol/L (98-108); Creatinine, Serum 0.65 mg/dL (0.70-1.20); EST Glomerular Filtration Rate 121 (>60); Estimated Creatinine Clearance 127.66 ml/min (50-250); Glucose 121 mg/dL (70-99); Potassium 2.9 mmol/L (3.3-5.1); Sodium Level 141 mmol/L (133-145)
[2025-01-24 01:08] LABS: Carbon Dioxide 9.9 mmol/L (21.0-32.0)
[2025-01-24 01:27] LABS: Bedside Glucose 97 mg/dL (74-106)
[2025-01-24] MEDS: Potassium Chloride 10mEq/100mL 10 MEQ/100 ML IV.SOLN. 100 MEQ IV BOLUS ×4 (01:42→05:05)
[2025-01-24] MEDS: Dextrose 5%-0.2% NS 1,000 ML 200 ML IV ×2 (01:43→07:31)
[2025-01-24] MEDS: Insulin Lispro 100 UNIT in 0.9% Normal Saline (100mL Bag) 99 ML CONT INF (02:00)
[2025-01-24 02:12] LABS: Bedside Glucose 123 mg/dL (74-106)
[2025-01-24 03:14] LABS: Bedside Glucose 156 mg/dL (74-106)
[2025-01-24 04:10] LABS: Bedside Glucose 172 mg/dL (74-106)
[2025-01-24 05:27] LABS: Bedside Glucose 167 mg/dL (74-106)
[2025-01-24 05:39] LABS: Anion Gap 6 (5-15); BUN 4 mg/dL (4-19); BUN/Creat Ratio 6.3 RATIO (10-20); Calcium,Total 7.6 mg/dL (7.6-11.0); Carbon Dioxide 18.8 mmol/L (21.0-32.0); Chloride 111 mmol/L (98-108); Creatinine, Serum 0.64 mg/dL (0.70-1.20); EST Glomerular Filtration Rate 122 (>60); Estimated Creatinine Clearance 129.66 ml/min (50-250); Glucose 182 mg/dL (70-99); Potassium 3.9 mmol/L (3.3-5.1); Sodium Level 136 mmol/L (133-145)
[2025-01-24 06:30] LABS: Bedside Glucose 177 mg/dL (74-106)
[2025-01-24 07:18] LABS: Bedside Glucose 129 mg/dL (74-106)
[2025-01-24] MEDS: 0.9% Saline Lock 10 ML Syringe IV ×3 (09:03→11:36)
[2025-01-24] MEDS: proCHLORPERazine 10 MG/2 ML Vial 5 MG IV ×3 (09:03→23:18)
--- NOTE | 2025-01-24 09:19 | NURSING ---
Pt was instructed that we would be stopping an insulin drip and starting a diet; immediately started with intractable n/v. She is mostly coughing and then will throw up clear liquid. Asked for ice chips to which I replied she could not have if she is ACTIVELY VOMITING post compazine. MD made aware of this and that the basal insulin is infusing through her pump. Will report back if unable to eat.
[2025-01-24 09:32] LABS: Bedside Glucose 261 mg/dL (74-106)
[2025-01-24] MEDS: Haloperidol Lactate 5 MG/ML Vial IV ×2 (10:31→20:22)
[2025-01-24 11:04] LABS: Bedside Glucose 309 mg/dL (74-106)
[2025-01-24] MEDS: Metoclopramide 10 MG/2 ML Vial 5 MG IV ×2 (11:36→21:08)
[2025-01-24] MEDS: Enoxaparin 40 MG/0.4 ML Syringe SC (11:37)
--- NOTE | 2025-01-24 12:53 | NURSING ---
Let Dr. Jefferson know that the pt reports that he needle came out of her skin that connects to the personal insulin pump and that she does not have any more supplies, therefore is not able to use her personal insulin pump at this time. Dr. Jefferson stated that she is going to be ordering NS for the pt (since she is not yet eating) along with sliding scale insulin coverage.
--- NOTE | 2025-01-24 12:54 | PN_ITS ---
Subjective Subjective Patient seen and examined. She complained of incessant nausea today. Her anion gap had closed x 2. She was placed on a diet but due to her nausea and vomiting, she could not tolerate the diet. SHe is tachypneic and also had some mild bradycardia. Review of systems is otherwise negative. Objective Data Objective Data Vital Signs: Vital Signs Temp Pulse Resp BP Pulse Ox O2 Del Method 98.9 F 52 L 26 H 122/51 H 98 Room Air 01/24/25 10:32 01/24/25 10:32 01/24/25 10:32 01/24/25 10:32 01/24/25 10:32 01/24/25 10:32 Oxygen Delivery Method Room Air Weight: 170 lb 8 oz Body Mass Index (BMI) 25.9 Intake & Output: Intake and Output for Last 24 Hours 01/22/25 01/23/25 01/24/25 23:59 23:59 23:59 Intake Total 1017.65 / 1021.97 7326.41 / 7326.41 2646.48 / 2646.48 Output Total 2250 / 2250 550 / 550 Balance 1017.65 / 1021.97 5076.41 / 5076.41 2096.48 / 2096.48 Lab / Micro Data 01/23/25 04:19 01/24/25 05:00 Labs: Laboratory Results - last 24 hr 01/23/25 04:19: Carbon Dioxide 9.9 L* 01/23/25 13:11: POC Glucose 127 H 01/23/25 14:18: POC Glucose 120 H 01/23/25 15:03: POC Glucose 127 H 01/23/25 16:00: Sodium 139, Potassium 3.4, Chloride 112 H, Carbon Dioxide 13.6 L , Anion Gap 13, BUN 10, Creatinine 0.69 L, Estim Creat Clear Calc 120.26, Est GFR (MDRD) Non-Af 120, BUN/Creatinine Ratio 14.4, Glucose 139 H, Calcium 7.5 L 01/23/25 16:10: POC Glucose 128 H 01/23/25 17:18: POC Glucose 136 H 01/23/25 18:11: POC Glucose 145 H 01/23/25 19:00: POC Glucose 134 H 01/23/25 19:57: POC Glucose 134 H 01/23/25 20:00: Sodium 139, Potassium 3.2 L, Chloride 112 H, Carbon Dioxide 16.8 L, Anion Gap 10, BUN 8, Creatinine 0.64 L, Estim Creat Clear Calc 129.66, Est GFR (MDRD) Non-Af 122, BUN/Creatinine Ratio 11.7, Glucose 150 H, Calcium 7.7 01/23/25 21:01: POC Glucose 170 H 01/23/25 21:50: POC Glucose 150 H 01/23/25 22:50: POC Glucose 143 H 01/23/25 23:53: POC Glucose 115 H 01/24/25 00:00: Sodium 141, Potassium 2.9 L, Chloride 113 H, Carbon Dioxide 18.6 L, Anion Gap 9, BUN 6, Creatinine 0.65 L, Estim Creat Clear Calc 127.66, Est GFR (MDRD) Non-Af 121, BUN/Creatinine Ratio 8.6 L, Glucose 121 H, Calcium 7.8 01/24/25 01:08: POC Glucose 97 01/24/25 01:54: POC Glucose 123 H 01/24/25 02:53: POC Glucose 156 H 01/24/25 03:53: POC Glucose 172 H 01/24/25 05:00: Sodium 136, Potassium 3.9, Chloride 111 H, Carbon Dioxide 18.8 L , Anion Gap 6, BUN 4, Creatinine 0.64 L, Estim Creat Clear Calc 129.66, Est GFR (MDRD) Non-Af 122, BUN/Creatinine Ratio 6.3 L, Glucose 182 H, Calcium 7.6 01/24/25 05:03: POC Glucose 167 H 01/24/25 06:05: POC Glucose 177 H 01/24/25 07:00: POC Glucose 129 H 01/24/25 09:12: POC Glucose 261 H 01/24/25 10:45: POC Glucose 309 H Physical Exam Const alert and oriented x3 Constitutional Narrative: looks uncomfortable due to nausea and vomiting General Appearance: cooperative HEENT normocephalic and head/scalp atraumatic Eyes EOMs intact bilaterally Neck no lymphadenopathy and supple Lymph Lymphatic: no lymphedema noted Resp normal respiratory effort, normal air movement and clear to auscultation bilaterally Cardio regular rate, regular rhythm, S1 normal heart sound, S2 normal heart sound and no murmurs GI normal to inspection, nondistended, normoactive bowel sounds, soft to palpation, non-tender and non-distended Extremity normal capillary refill, no clubbing, cyanosis or edema and no calf tenderness General Extremity: no tenderness to palpation of joints or extremities Skin General Skin Exam: no breakdown Neuro no focal motor deficits Speech: speech normal Motor Exam: general weakness Psych cooperative Psych Narrative: uncomfortable due to the nausea and vomiting Activity / Motor Behavior: restless Assessment & Plan Assessment/Plan (1) Metabolic acidosis: (2) DKA (diabetic ketoacidosis): PLAN: Plan #DKA * admitted with a complaint of nausea and vomiting and found to be in DKA * anion gap has closed x >2 * started on a diabetic diet, but unable to tolerate due to nausea and vomiting * She also says she does not have the supplies for her insulin pump. Will therefore place on high-dose sliding scale and continue subcu Lantus once she is able to tolerate a diet. * replace electrolyte derangements per protocol * #History of PTSD and borderline personality disorder: On Seroquel and doxepin #Leucocytosis: wbc is 26.3. Likely reactive. No clear evidence of infection. Will monitor for now #History of psoriasis: on skyrizi #History of cannabis use disorder: She has a medical marijuana card and says she was medical marijuana. #DVT prophylaxis: Lovenox Charges/Coding Visit Charges Inpatient E&M: 49313 Subs Hosp L2
--- NOTE | 2025-01-24 13:06 | NURSING ---
Pt constantly taking off the cardiac monitoring equipment to run to the bathroom despite being told to leave it on d/t multiple nausea medications being given and issues that can arise with the heart.
[2025-01-24] MEDS: Insulin Lispro 100 UNIT/ML INSULN.PEN SC ×3 (13:24→23:16)
[2025-01-24] MEDS: Dextrose 5%-Lactated Ringers 1,000 ML 100 ML IV (13:25)
[2025-01-24 13:48] LABS: Absolute Neutrophil Count 13.8 X10^3/uL (2.0-7.7); Basophil# 0.02 X10^3/uL; Basophil% 0.1 % (0-1); Hematocrit 24.9 % (37-47); Hemoglobin 8.3 g/dL (12.0-15.0); Lymphocyte % 2.7 % (19-41); Mean Corp Hgb Conc 33.3 g/dL (32-36); Mean Corpuscular Hgb 29.9 pg (27.0-32.0); Mean Corpuscular Volume 89.6 fL (81-99); Mean Platelet Vol. 12.4 fl (6.2-12.0); Monocyte# 0.28 X10^3/uL; Monocyte% 1.9 % (0-10); NRBC Flagged by Analyzer 0 % (0-5); Neutrophil # 13.76 X10^3/uL (2.7-7.7); Neutrophil % 94.1 % (47-70); POSITIVE COUNT YES; POSITIVE DIFFERENTIAL YES; Platelet Count 75 K/mm3 (150-450); RBC Distribution Width CV 13.1 % (11.6-14.6); RBC Distribution Width SD 42.7 fl (35.1-43.9); Red Blood Count 2.78 M/mm3 (4.2-5.4); White Blood Count 14.6 K/mm3 (4.4-11.0)
--- NOTE | 2025-01-24 13:50 | CASEMGMT ---
Social Work Pt is not being discharged today. KENISHA called pt's BALJIT Casas, left her a message letting her know pt is not leaving today. KENISHA will place a green sheet on the chart in anticipation of weekend d/c. RUTHY Forrest
[2025-01-24 13:51] LABS: Differential Indicated SCAN CRITERIA MET
[2025-01-24 13:56] LABS: Bedside Glucose 400 mg/dL (74-106)
[2025-01-24 14:16] LABS: Platelet Estimate MOD DEC (ADEQ)
[2025-01-24] MEDS: Scopolamine 1mg/72hr Patch 1 PATCH TD (17:28)
[2025-01-24 17:53] LABS: Bedside Glucose 239 mg/dL (74-106)
--- NOTE | 2025-01-24 20:29 | NURSING ---
Pt nausiated, had emesis all over floor. Pt given multipule green bags and asked to use the . House keeping called to mop floor. Medicated for nausea. Trash can placed bedside.
[2025-01-24 23:37] LABS: Bedside Glucose 304 mg/dL (74-106)
[2025-01-25] VITALS (21 sets, daily range): BP systolic 97–140; BP diastolic 44–90; PULSE 48–87; RESP 16–29; TEMP 36.6–37.2; O2SAT 94–100; BMI 25.6
[2025-01-25] MEDS: 0.9% Saline Lock 10 ML Syringe IV ×3 (02:58→12:15)
[2025-01-25] MEDS: Haloperidol Lactate 5 MG/ML Vial IV (04:26)
[2025-01-25 05:21] LABS: Absolute Lymphocyte Count 1.08 X10^3/uL (0.83-4.51); Absolute Neutrophil Count 19.8 X10^3/uL (2.0-7.7); Basophil# 0.04 X10^3/uL; Basophil% 0.2 % (0-1); Hematocrit 32.9 % (37-47); Hemoglobin 11.3 g/dL (12.0-15.0); Lymphocyte # 1.08 X10^3/ul (0.83-4.51); Lymphocyte % 4.8 % (19-41); Mean Corp Hgb Conc 34.3 g/dL (32-36); Mean Corpuscular Hgb 29.7 pg (27.0-32.0); Mean Corpuscular Volume 86.6 fL (81-99); Monocyte# 1.54 X10^3/uL; Monocyte% 6.8 % (0-10); NRBC Flagged by Analyzer 0 % (0-5); Neutrophil # 19.78 X10^3/uL (2.7-7.7); Neutrophil % 87.1 % (47-70); POSITIVE DIFFERENTIAL YES; Platelet Count 129 K/mm3 (150-450); RBC Distribution Width CV 12.9 % (11.6-14.6); RBC Distribution Width SD 40.6 fl (35.1-43.9); White Blood Count 22.7 K/mm3 (4.4-11.0)
[2025-01-25 05:41] LABS: Differential Indicated SCAN CRITERIA MET
[2025-01-25 06:06] LABS: Anion Gap 22 (5-15); BUN 5 mg/dL (4-19); Calcium,Total 8.1 mg/dL (7.6-11.0); Carbon Dioxide 14.7 mmol/L (21.0-32.0); Chloride 100 mmol/L (98-108); Creatinine, Serum 0.66 mg/dL (0.70-1.20); EST Glomerular Filtration Rate 121 (>60); Estimated Creatinine Clearance 125.73 ml/min (50-250); Glucose 287 mg/dL (70-99); Potassium 2.9 mmol/L (3.3-5.1); Sodium Level 136 mmol/L (133-145)
[2025-01-25] MEDS: Insulin Lispro 100 UNIT/ML INSULN.PEN SC ×3 (06:07→17:21)
--- NOTE | 2025-01-25 09:31 | PN.HOSP_ITS ---
Reason for Visit Reason for Visit: Diagnoses Type 2 diabetes mellitus with ketoacidosis without coma (01/22/25) Acidosis, unspecified (01/22/25) Objective Data Objective Data Vital Signs: Vital Signs Temp Pulse Resp BP Pulse Ox O2 Del Method 98.1 F 66 22 H 119/58 L 100 Room Air 01/25/25 06:00 01/25/25 08:00 01/25/25 08:00 01/25/25 08:00 01/25/25 08:00 01/25/25 08:00 Oxygen Delivery Method Room Air Weight: 168 lb 8 oz Body Mass Index (BMI) 25.6 Intake & Output: Intake and Output for Last 24 Hours 01/23/25 01/24/25 01/25/25 23:59 23:59 23:59 Intake Total 7326.41 / 7326.41 3646.48 / 3646.48 Output Total 2250 / 2250 1250 / 1450 1200 / 1200 Balance 5076.41 / 5076.41 2396.48 / 2196.48 -1200 / -1200 Lab / Micro Data 01/25/25 05:08 01/25/25 05:08 Labs: Laboratory Results - last 24 hr 01/24/25 09:12: POC Glucose 261 H 01/24/25 10:45: POC Glucose 309 H 01/24/25 13:24: POC Glucose 400 H 01/24/25 13:30: WBC 14.6 H, RBC 2.78 L, Hgb 8.3 L, Hct 24.9 L, MCV 89.6, MCH 29.9, MCHC 33.3, RDW Std Deviation 42.7, RDW Coeff of Joyce 13.1, Plt Count 75 L, MPV 12.4 H, Immature Gran % (Auto) 1.200 H, Neut % (Auto) 94.1 H, Lymph % (Auto) 2.7 L, [place] % (Auto) 1.9, Eos % (Auto) 0.0, Baso % (Auto) 0.1, Absolute Neuts (auto) 13.8 H, Absolute Lymphs (auto) 0.40 L, Nucleated RBC % 0, Differential Comment COMMENT, Platelet Estimate MOD DEC 01/24/25 17:26: POC Glucose 239 H 01/24/25 23:14: POC Glucose 304 H 01/25/25 05:08: WBC 22.7 H, RBC 3.80 L, Hgb 11.3 L, Hct 32.9 L, MCV 86.6, MCH 29.7, MCHC 34.3, RDW Std Deviation 40.6, RDW Coeff of Joyce 12.9, Plt Count 129 L, MPV 12.0, Immature Gran % (Auto) 1.100 H, Neut % (Auto) 87.1 H, Lymph % (Auto) 4.8 L, [place] % (Auto) 6.8, Eos % (Auto) 0.0, Baso % (Auto) 0.2, Absolute Neuts (auto) 19.8 H, Absolute Lymphs (auto) 1.08, Nucleated RBC % 0, Sodium 136, P otassium 2.9 L, Chloride 100, Carbon Dioxide 14.7 L, Anion Gap 22 H, BUN 5, C reatinine 0.66 L, Estim Creat Clear Calc 125.73, Est GFR (MDRD) Non-Af 121, B UN/Creatinine Ratio 8.0 L, Glucose 287 H, Calcium 8.1 Physical Exam Narrative Seen and examined. Patient is still nauseous and vomited in the morning. On clear liquid. On multiple antiemetic agents. DKA resolved. Physical exam General: Alert, Oriented x3, Cooperative HEENT: Atraumatic, PERRLA, EOMI, Normocephalic. Oral: Oral mucosa dry. Neck: Supple, No JVD, Negative Carotid Bruits Chest wall/Lungs: Air entry diminished in bilateral lung bases. No crepitation/rhonchi Cardiovascular: Regular rate and rhythm, Normal S1,S2, No M/G/R Abdomen: Bowel Sounds Present, Soft, Non Tender, Non-Distended : No dysuria. No renal angle tenderness. No suprapubic tenderness. Extremities: No edema, Capillary Refill Less than 3 Seconds Skin: No rashes, No breakdown Musculoskeletal: No Tenderness to Palpation of Joints or Extremities. ROM full with affect. Neurological: Cranial nerves II-XII grossly intact, DTR 2+/4. No acute focal neurological deficit. Psych/Mental Status: Flat affect. Assessment & Plan Assessment/Plan (1) Metabolic acidosis: (2) DKA (diabetic ketoacidosis): PLAN: Plan #DKA * admitted with a complaint of nausea and vomiting and found to be in DKA * anion gap has closed x >2 * started on a diabetic diet, but unable to tolerate due to nausea and vomiting * She also says she does not have the supplies for her insulin pump. Will therefore place on high-dose sliding scale and continue subcu Lantus once she is able to tolerate a diet. * replace electrolyte derangements per protocol Intractable nausea and vomiting: Patient has leukocytosis probably inflammatory. Symptoms are still not controlled. Hypokalemia K2.9. IV potassium replacement ordered. Serum magnesium and phosphorus ordered. #History of PTSD and borderline personality disorder: On Seroquel and doxepin #Leucocytosis: wbc is 26.3. Likely reactive. No clear evidence of infection. Will monitor for now #History of psoriasis: on skyrizi #History of cannabis use disorder: She has a medical marijuana card and says she was medical marijuana. #DVT prophylaxis: Lovenox Charges/Coding Visit Charges Inpatient E&M: 95007 Subs Hosp L2
[2025-01-25] MEDS: Potassium Chloride 10mEq/100mL 10 MEQ/100 ML IV.SOLN. 100 MEQ IV BOLUS ×4 (10:04→14:00)
[2025-01-25] MEDS: Enoxaparin 40 MG/0.4 ML Syringe SC (10:08)
[2025-01-25] MEDS: Gabapentin 300 MG Capsule PO ×2 (10:13→21:07)
[2025-01-25] MEDS: Metoclopramide 5 MG TABLET PO ×2 (10:13→15:58)
[2025-01-25] MEDS: QUEtiapine 25 MG Tablet PO ×2 (10:13→21:07)
[2025-01-25] MEDS: CLARIFY ORDER 1 EACH NOTE (10:16)
[2025-01-25 11:17] LABS: Magnesium 1.6 mg/dL (1.5-2.2); Phosphorus 2.1 mg/dL (2.7-4.5)
[2025-01-25] MEDS: proCHLORPERazine 10 MG/2 ML Vial 5 MG IV ×2 (12:15→20:28)
[2025-01-25 12:16] LABS: Bedside Glucose 220 mg/dL (74-106)
[2025-01-25 17:43] LABS: Bedside Glucose 352 mg/dL (74-106)
--- NOTE | 2025-01-25 18:26 | NURSING ---
Report called to STIV[facility] Mobley for pt to be transferred to [facility].
[2025-01-25] MEDS: DOXEPIN HCL 6 MG PO (21:07)
[2025-01-26] MEDS: Insulin Lispro 100 UNIT/ML INSULN.PEN SC ×2 (00:07→05:58)
[2025-01-26 00:28] LABS: Bedside Glucose 306 mg/dL (74-106)
[2025-01-26 02:10] VITALS: BP 143/85; PULSE 82; RESP 16; TEMP 36.6; O2SAT 97
[2025-01-26 06:00] VITALS: BMI 24.8
[2025-01-26] MEDS: proCHLORPERazine 10 MG/2 ML Vial 5 MG IV (06:02)
[2025-01-26] MEDS: 0.9% Saline Lock 10 ML Syringe IV (06:03)
[2025-01-26 06:29] LABS: Bedside Glucose 328 mg/dL (74-106)
[2025-01-26 07:06] LABS: Absolute Neutrophil Count 13.5 X10^3/uL (2.0-7.7); Basophil# 0.05 X10^3/uL; Basophil% 0.3 % (0-1); Hematocrit 38.8 % (37-47); Hemoglobin 13.4 g/dL (12.0-15.0); Lymphocyte % 9.3 % (19-41); Mean Corp Hgb Conc 34.5 g/dL (32-36); Mean Corpuscular Volume 86.8 fL (81-99); Mean Platelet Vol. 11.5 fl (6.2-12.0); Monocyte# 0.84 X10^3/uL; Monocyte% 5.2 % (0-10); NRBC Flagged by Analyzer 0 % (0-5); Neutrophil # 13.47 X10^3/uL (2.7-7.7); Neutrophil % 83.9 % (47-70); Platelet Count 169 K/mm3 (150-450); RBC Distribution Width CV 13.1 % (11.6-14.6); RBC Distribution Width SD 41.1 fl (35.1-43.9); Red Blood Count 4.47 M/mm3 (4.2-5.4); White Blood Count 16.1 K/mm3 (4.4-11.0)
[2025-01-26 07:42] LABS: Anion Gap 24 (5-15); BUN 6 mg/dL (4-19); BUN/Creat Ratio 7.8 RATIO (10-20); Calcium,Total 8.5 mg/dL (7.6-11.0); Carbon Dioxide 12.9 mmol/L (21.0-32.0); Chloride 97 mmol/L (98-108); Creatinine, Serum 0.76 mg/dL (0.70-1.20); EST Glomerular Filtration Rate 109 (>60); Estimated Creatinine Clearance 109.19 ml/min (50-250); Glucose 315 mg/dL (70-99); Sodium Level 133 mmol/L (133-145)
--- NOTE | 2025-01-26 08:35 | DCINST_ITS ---
Discharge Instructions DC O2, CPAP, BIPAP needs Home O2 Discharge instructions: No Follow Up Care Test Results: Test results from this visit will be discussed in further detail at your follow- up appointment, if applicable. Discharge Plan Admission Admit Date/Time: 01/22/25 22:01 Attending Provider: Estevan Davis Primary Care Provider: Jaime Barbour Consulting Providers: David Smith Nana Yaa Discharge Orders/Prescriptions Prescriptions: New fluconazole 150 mg tablet 150 mg PO Q3D Qty: 2 0RF Continued gabapentin 300 mg capsule 300 mg PO BID (DME) pen needle, diabetic [Ultra-Thin II Ins [place]] 29 gauge x 1/2 needle See Rx Instructions .Route Qty: 100 0RF Rx Instructions: As directed Skyrizi 150 mg/mL pen injector 150 mg subcut .[id number] albuterol sulfate [Ventolin HFA] 90 mcg/actuation HFA aerosol inhaler 1 - 2 puff inhalation Q4H PRN PRN (Reason: Wheezing) Qty: 1 0RF cholecalciferol (vitamin D3) 1,250 mcg (50,000 unit) capsule 1,250 mcg PO QWEEK Trulance 3 mg tablet 3 mg PO DAILY haloperidol 5 mg tablet 5 mg PO TID PRN (Reason: nausea and vomiting) Qty: 20 0RF Rx Instructions: Take 1/2-1 3 times a day as needed nausea and vomiting insulin lispro [Humalog U-100 Insulin] 100 unit/mL solution See Rx Instructions .ROUTE .COMPLEX Qty: 10 4RF Rx Instructions: 100 U VIA PUMP DAILY; BASAL RATE - 1.8 UNITS/HOUR BOLUS: CARB RATIO- 1 UNIT /10 GRAMS OF CARBS CORRECTION- 1 UNIT FOR EVERY 30MG/DL BLOOD GLUCOSE OVER 120 Insulin Basal Pump (Pt's Own) [Pump, Basal] 1.8 unit subcut UD Qty: 0 0RF promethazine 25 mg tablet 50 mg PO Q6H PRN (Reason: nausea and vomiting) Rx Instructions: one or two every six hours for nausea quetiapine 50 mg tablet extended release 24 hr 50 mg PO QHS doxepin 6 mg tablet 6 mg PO QHS Referrals / Follow Up: Jaime Barbour, DATA MODELING ARCHITECT-C [Primary Care Provider] - Within 2 Weeks Disposition Disposition (needs filled in before D/C Order can be placed): Home, Self Care
[2025-01-26] MEDS: QUEtiapine 25 MG Tablet PO (09:11)
[2025-01-26] MEDS: Gabapentin 300 MG Capsule PO (09:22)
[2025-01-26] MEDS: Potassium Chloride Oral Tablet 20 MEQ 40 MEQ PO ×2 (09:22→12:04)
[2025-01-26 10:27] VITALS: BP 140/87; PULSE 112; RESP 18; TEMP 36.4; O2SAT 97
--- NOTE | 2025-01-26 11:56 | DS.PCM_ITS ---
Providers Date of Admission: 01/22/25 Date of Discharge: 01/26/25 Primary Care Physician: SHAWNA Bellamy, QUALITY SYSTEMS TECHNICIAN-C Reason For Visit: DKA Diagnosis Discharge Diagnosis (1) Metabolic acidosis: Status: Acute Code(s): E87.20 - Acidosis, unspecified (2) DKA (diabetic ketoacidosis): Status: Acute Code(s): E11.10 - Type 2 diabetes mellitus with ketoacidosis without coma Plan 29-year-old female was admitted with vomiting along with nausea mild diarrhea. Blood sugar was in 150-200 range but found labs consistent with DKA. She was admitted in ICU for the management of DKA. #DKA with history of type I DM on insulin pump. * admitted with a complaint of nausea and vomiting and found to be in DKA * anion gap has closed x >2 * started on a diabetic diet, but unable to tolerate due to nausea and vomiting * She also says she does not have the supplies for her insulin pump. Will therefore place on high-dose sliding scale and continue subcu Lantus once she is able to tolerate a diet. * replace electrolyte derangements per protocol 01/26: Prescription given for Humalog insulin vial for insulin pump. She states that she uses insulin pump and does not have follow-up with endocrinology in the next 2 months. Intractable nausea and vomiting: Patient has leukocytosis probably inflammatory. Symptoms are still not controlled. Hypokalemia K2.9. IV potassium replacement ordered. Serum magnesium and phosphorus ordered. 01/26: Nausea vomiting subsided. Leukocytosis 16.1 thousand, improving. Mild hypokalemia, potassium prescribed. Follow with PCP in 1 week #History of PTSD and borderline personality disorder: On Seroquel and doxepin #Leucocytosis: wbc is 26.3. Likely reactive. No clear evidence of infection. Will monitor for now 01/26: She complained of vaginal itching and whitish thick curdy discharge. She states she has yeast infection. She stated it comes with the DKA. She has fluconazole prescribed. 01/26: #History of psoriasis: on skyrizi #History of cannabis use disorder: She has a medical marijuana card and says she was medical marijuana. #DVT prophylaxis: Lovenox Discharge medication reconciliation done. Discharge follow-up instructions completed. Discharge process discussed with the patient and all questions were answered to patient's satisfaction. Follow with PCP in 1 to 2 weeks Total time spent, exact 35 minutes on discharge meds reconciliation, examination, coordination of care with nurses and ancillary staff, review of imaging and blood test and discussion with the patient on follow-up instructions. Medications at Discharge Home Medications pen needle, diabetic 29 gauge x 1/2 (Ultra-Thin II Insulin Pen [place]) #100 ea 08/10/23 risankizumab-rzaa 150 mg/mL subcutaneous pen injector (Skyrizi) 150 mg subcut .[id number] PSORIASIS 02/07/24 Insulin Basal Pump (Pt's Own) [Pump, Basal] 1.8 unit subcut UD diabetes ##0 06/11/24 albuterol sulfate 90 mcg/actuation aerosol inhaler (Ventolin HFA) 1 - 2 puff inhalation Q4H PRN PRN Wheezing ##1 08/01/24 doxepin 6 mg tablet 6 mg PO QHS insomnia 10/18/24 promethazine 25 mg tablet 50 mg PO Q6H PRN nausea and vomiting 10/18/24 quetiapine 50 mg tablet,extended release 24 hr 50 mg PO QHS mood 10/18/24 cholecalciferol (vitamin D3) 1,250 mcg (50,000 unit) capsule 1,250 mcg PO QWEEK 12/14/24 plecanatide 3 mg tablet (Trulance) 3 mg PO DAILY 12/14/24 haloperidol 5 mg tablet 5 mg PO TID PRN nausea and vomiting #20 tabs 12/16/24 gabapentin 300 mg capsule 300 mg PO BID 01/08/25 fluconazole 150 mg tablet 150 mg PO Q3D 2 doses #2 tabs 01/26/25 insulin lispro 100 unit/mL subcutaneous solution (Humalog U-100 Insulin) See Rx Instructions .Route .COMPLEX #10 mL 01/26/25 Physical Exam Narrative Seen and examined. Nausea vomiting is subsided. Complain of vaginal itching and thick curdy discharge Physical exam General: Alert, Oriented x3, Cooperative HEENT: Atraumatic, PERRLA, EOMI, Normocephalic. Oral: Oral mucosa dry. Neck: Supple, No JVD, Negative Carotid Bruits Chest wall/Lungs: Air entry diminished in bilateral lung bases. No crepitation/rhonchi Cardiovascular: Regular rate and rhythm, Normal S1,S2, No M/G/R Abdomen: Bowel Sounds Present, Soft, Non Tender, Non-Distended : No dysuria. No renal angle tenderness. No suprapubic tenderness. Extremities: No edema, Capillary Refill Less than 3 Seconds Skin: No rashes, No breakdown Musculoskeletal: No Tenderness to Palpation of Joints or Extremities. ROM full with affect. Neurological: Cranial nerves II-XII grossly intact, DTR 2+/4. No acute focal neurological deficit. Psych/Mental Status: Flat affect. Weight / BMI Weight Weight: 163 lb 5.8 oz Body Mass Index (BMI) 24.8 ABG / Lab / Microbiology Data 01/26/25 06:35 01/26/25 06:35 Laboratory: Laboratory Results - last 24 hr 01/25/25 11:55: POC Glucose 220 H 01/25/25 17:20: POC Glucose 352 H 01/26/25 00:06: POC Glucose 306 H 01/26/25 05:57: POC Glucose 328 H 01/26/25 06:35: WBC 16.1 H, RBC 4.47, Hgb 13.4, Hct 38.8, MCV 86.8, MCH 30.0, MCHC 34.5, RDW Std Deviation 41.1, RDW Coeff of Joyce 13.1, Plt Count 169, MPV 11.5, Immature Gran % (Auto) 1.300 H, Neut % (Auto) 83.9 H, Lymph % (Auto) 9.3 L , [place] % (Auto) 5.2, Eos % (Auto) 0.0, Baso % (Auto) 0.3, Absolute Neuts (auto) 13.5 H, Absolute Lymphs (auto) 1.50, Nucleated RBC % 0, Sodium 133, Potassium 3.0 L, Chloride 97 L, Carbon Dioxide 12.9 L, Anion Gap 24 H, BUN 6, Creatinine 0.76, Estim Creat Clear Calc 109.19, Est GFR (MDRD) Non-Af 109, BUN/Creatinine Ratio 7.8 L, Glucose 315 H, Calcium 8.5 D/C Instructions DC O2, CPAP, BIPAP Needs Home O2 Discharge instructions: No Meaningful Use Info Meaningful Use Meaningful Use Diagnoses (Choose all that apply): None applicable Ischemic Stroke Statin Dosing Therapy Reference: STATIN DOSE THERAPY REFERENCE: * Patients > 75 years receive moderate or high dose statin therapy. * Patients 75 years or YOUNGER should receive HIGH intensity statin dose unless contraindicated. You will be required to document reason for non-treatment if statin daily dose does not meet guidelines. HIGH DOSE STATIN THERAPY DAILY Atorvastatin > than or = to 40 mg Rosuvastatin > than or = to 20 mg Amlodipine + Atorvastatin > than or = to 2.5/40 mg Ezetimibe + Simvastatin 10/80 mg Simvastatin 80mg Discharge Plan Admission Admit Date/Time: 01/22/25 22:01 Attending Provider: Estevan Davis Primary Care Provider: Jaime Barbour [facility] Consulting Providers: David Smith Nana Yaa Discharge Orders/Prescriptions Prescriptions: New fluconazole 150 mg tablet 150 mg PO Q3D Qty: 2 0RF Continued gabapentin 300 mg capsule 300 mg PO BID (DME) pen needle, diabetic [Ultra-Thin II Ins Pen [place]] 29 gauge x 1/2 needle See Rx Instructions .Route Qty: 100 0RF Rx Instructions: As directed Skyrizi 150 mg/mL pen injector 150 mg subcut .[id number] albuterol sulfate [Ventolin HFA] 90 mcg/actuation HFA aerosol inhaler 1 - 2 puff inhalation Q4H PRN PRN (Reason: Wheezing) Qty: 1 0RF cholecalciferol (vitamin D3) 1,250 mcg (50,000 unit) capsule 1,250 mcg PO QWEEK Trulance 3 mg tablet 3 mg PO DAILY haloperidol 5 mg tablet 5 mg PO TID PRN (Reason: nausea and vomiting) Qty: 20 0RF Rx Instructions: Take 1/2-1 3 times a day as needed nausea and vomiting insulin lispro [Humalog U-100 Insulin] 100 unit/mL solution See Rx Instructions .ROUTE .COMPLEX Qty: 10 4RF Rx Instructions: 100 U VIA PUMP DAILY; BASAL RATE - 1.8 UNITS/HOUR BOLUS: CARB RATIO- 1 UNIT /10 GRAMS OF CARBS CORRECTION- 1 UNIT FOR EVERY 30MG/DL BLOOD GLUCOSE OVER 120 Insulin Basal Pump (Pt's Own) [Pump, Basal] 1.8 unit subcut UD Qty: 0 0RF promethazine 25 mg tablet 50 mg PO Q6H PRN (Reason: nausea and vomiting) Rx Instructions: one or two every six hours for nausea quetiapine 50 mg tablet extended release 24 hr 50 mg PO QHS doxepin 6 mg tablet 6 mg PO QHS Referrals / Follow Up: Jaime Barbour VSC, QUALITY SYSTEMS TECHNICIAN-C [Primary Care Provider] - Within 2 Weeks Disposition Disposition (needs filled in before D/C Order can be placed): Home, Self Care Charges/Coding Visit Charges Inpatient E&M: 00722 Disch Hosp >30min
[2025-01-27 15:57] LABS: Bedside Glucose 340 mg/dL (74-106)
[2025-01-27 15:57] LABS: Bedside Glucose 350 mg/dL (74-106)
[2025-01-27 15:57] LABS: Bedside Glucose 322 mg/dL (74-106)
== END 2025-01-26 12:01 | disposition home or self-care (01) | DRG 638 ==
LOC: ED 21:31 → ICU 22:56 → MS3 01-25 18:30
PROVIDERS: Student in an Organized Health Care Education/Training Program; Admitting Provider Family Medicine; Emergency Provider Emergency Medicine; Referring Provider Emergency Medicine; Visit Provider Internal Medicine
DX: E10.10 Type 1 diabetes mellitus with ketoacidosis without coma (principal); E87.3 Alkalosis; Q87.40 Marfan syndrome, unspecified; E10.43 Type 1 diabetes mellitus with diabetic autonomic (poly)neuropathy; D72.828 Other elevated white blood cell count; E86.0 Dehydration; F39 Unspecified mood [affective] disorder; Z95.828 Presence of other vascular implants and grafts; F60.3 Borderline personality disorder; E87.6 Hypokalemia; F17.290 Nicotine dependence, other tobacco product, uncomplicated; Z79.4 Long term (current) use of insulin; K31.84 Gastroparesis; R11.15 Cyclical vomiting syndrome unrelated to migraine; E87.8 Other disorders of electrolyte and fluid balance, not elsewhere classified; L40.9 Psoriasis, unspecified; L29.2 Pruritus vulvae; R45.1 Restlessness and agitation; F41.0 Panic disorder [episodic paroxysmal anxiety]; Z96.41 Presence of insulin pump (external) (internal); Z79.51 Long term (current) use of inhaled steroids; Z79.899 Other long term (current) drug therapy; Z98.890 Other specified postprocedural states; F43.10 Post-traumatic stress disorder, unspecified; G47.00 Insomnia, unspecified; N89.8 Other specified noninflammatory disorders of vagina; Z53.29 Procedure and treatment not carried out because of patient's decision for other reasons
CPT/HCPCS: 36415; 36591; 80048; 80053; 80076; 81001; 82010; 82803; 82962; 83690; 83735; 84100; 84703; 85025; 93005; 99285; A4216

== ENCOUNTER → 2025-02-03 | Outpatient (CLI) | payer MEDICARE, MEDICAID, SELFPAY ==
[2025-02-03 16:41] LABS: Absolute Lymphocyte Count 1.69 X10^3/uL (0.83-4.51); Absolute Neutrophil Count 7.9 X10^3/uL (2.0-7.7); Basophil# 0.05 X10^3/uL; Basophil% 0.5 % (0-1); Eosinophil# 0.05 X10^3/uL; Eosinophils% 0.5 % (0-5); Hematocrit 40.5 % (37-47); Hemoglobin 13.5 g/dL (12.0-15.0); Lymphocyte # 1.69 X10^3/ul (0.83-4.51); Lymphocyte % 16.3 % (19-41); Mean Corp Hgb Conc 33.3 g/dL (32-36); Mean Corpuscular Hgb 29.7 pg (27.0-32.0); Mean Platelet Vol. 11.5 fl (6.2-12.0); Monocyte% 4.8 % (0-10); NRBC Flagged by Analyzer 0 % (0-5); Neutrophil # 7.93 X10^3/uL (2.7-7.7); Neutrophil % 76.4 % (47-70); Platelet Count 215 K/mm3 (150-450); RBC Distribution Width CV 13.4 % (11.6-14.6); RBC Distribution Width SD 43.5 fl (35.1-43.9); Red Blood Count 4.55 M/mm3 (4.2-5.4); White Blood Count 10.4 K/mm3 (4.4-11.0)
[2025-02-03 16:50] LABS: International Normalized Ratio 0.9; Prothrombin Time (Protime)PT. 11.9 SECONDS (11.7-14.9)
[2025-02-03 17:00] LABS: Hepatitis B Surface Antibody Nonreactive
[2025-02-03 17:23] LABS: Hepatitis B Surface Antigen Nonreactive (Nonreactive); Hepatitis C Antibody Nonreactive (Nonreactive)
[2025-02-03 17:32] LABS: Hemoglobin A1c 10.9 % (<=5.6)
[2025-02-03 18:11] LABS: AST(SGOT) 18 U/L (<=31); Alanine Aminotransfer ALT/SGPT 29 U/L (<=34); Albumin, Serum 4.2 g/dL (3.5-5.0); Alkaline Phosphatase 95 U/L (35-104); Anion Gap 15 (5-15); BUN 10 mg/dL (4-19); BUN/Creat Ratio 12.4 RATIO (10-20); Bilirubin, Direct 0.13 mg/dL (0.00-0.30); Calcium,Total 9.7 mg/dL (7.6-11.0); Carbon Dioxide 22.5 mmol/L (21.0-32.0); Chloride 96 mmol/L (98-108); Creatinine, Serum 0.78 mg/dL (0.70-1.20); EST Glomerular Filtration Rate 106 (>60); Globulin 2.7 g/dL (2.2-4.2); Glucose 459 mg/dL (70-99); Potassium 4.7 mmol/L (3.3-5.1); Protein, Total 6.8 g/dL (5.9-8.4); Sodium Level 133 mmol/L (133-145)
[2025-02-05 05:07] LABS: Hepatitis A AB, Total Positive (Negative); Hepatitis B Core Ab Total Negative (Negative)
== END | disposition home or self-care (01) ==
LOC: VSLAB 14:42
PROVIDERS: Nurse Practitioner Acute Care; Visit Provider Nurse Practitioner Family
DX: K59.00 Constipation, unspecified (principal); E10.10 Type 1 diabetes mellitus with ketoacidosis without coma; E10.43 Type 1 diabetes mellitus with diabetic autonomic (poly)neuropathy; K76.0 Fatty (change of) liver, not elsewhere classified; K31.84 Gastroparesis; R11.2 Nausea with vomiting, unspecified
CPT/HCPCS: 36415; 80048; 80076; 83036; 84443; 85025; 85610; 86704; 86706; 86708; 86803; 87340

== ENCOUNTER 2025-02-18 12:24 | Inpatient (IN) | payer MEDICARE, MEDICAID, SELFPAY ==
[2025-02-18] VITALS (12 sets, daily range): BP systolic 100–135; BP diastolic 47–81; PULSE 48–97; RESP 9–28; TEMP 36.4–36.8; O2SAT 95–100; BMI 25.4; BMI 25.5
--- NOTE | 2025-02-18 14:02 | EKG12_ITS ---
Test Reason : ARRYTH Blood Pressure : */* mmHG Vent. Rate : 41 BPM Atrial Rate : 41 BPM P-R Int : 122 ms QRS Dur : 82 ms QT Int : 552 ms P-R-T Axes : 11 60 62 degrees QTcB Int : 455 ms Marked sinus bradycardia Abnormal ECG Confirmed by TOMASA LOCKE, SAMUEL ([id number]), development editor JHOANA NESBITT ([id number]) on 02/19/2025 11:10:42 AM Referred By: Confirmed By: SAMUEL RANDOLPH MD
[2025-02-18] MEDS: 0.9% Normal Saline (1000mL) 1,000 ML 999 ML IV ×3 (14:20→18:15)
[2025-02-18] MEDS: Haloperidol Lactate 5 MG/ML Vial 2 MG IV (14:20)
[2025-02-18 14:29] LABS: Bacteria 0 SEEN /hpf (None Seen); Mucous, Urine 0 SEEN /hpf (<or=2+)
--- NOTE | 2025-02-18 14:31 | EX.ED.DYSGE1 ---
HPI History of Present Illness Chief Complaint: Nausea/Vomiting Informant: patient Narrative Narrative: Patient is a 29-year-old female relatively complex medical history including gastroparesis, type 1 diabetes mellitus, DKA, prior appendectomy, Marfan syndrome, PTSD and borderline personality disorder as well as history of marijuana use presenting with abdominal pain, nausea and vomiting. States her symptoms around 9 AM. States it feels like her gastroparesis. She is her blood sugar was 230 this morning but it was coming down however she suspects is, start going out. States that her abdominal pain is in the center of her abdomen associated with her vomiting. Her vomit has been mostly bile per patient and she denies any blood in it. She states she did have a bowel movement this morning. She denies any blood in her stool. She states earlier today she did have episodes of feeling hot and cold but denies any fever that she is aware of. Electrolyte users of the patient was admitted for DKA at the end of this month however she states this does not feel like her DKA. She states she has been under more stress lately and she thinks is what triggered her nausea and vomiting this morning. She did try taking promethazine with no relief. [facility] Medical History Metabolic acidosis Vomiting Diabetic gastroparesis delivery delivered History of marijuana use Hx of diabetic gastroparesis Diabetes mellitus with hyperglycemia Intractable cyclical vomiting with nausea Depression Compensated metabolic acidosis Dysuria UTI (urinary tract infection) Hypokalemia Type 1 diabetes Metabolic acidosis Leukocytosis DKA, type 1 Intractable abdominal pain Intractable nausea and vomiting Panic disorder Major depressive disorder, recurrent severe without psychotic features Substance abuse Kidney stones Kidney disease Smoker Intractable vomiting Type 1 diabetes Marfan syndrome PTSD (post-traumatic stress disorder) Borderline personality disorder Home Medications ?Medication ?Instructions ?Recorded ?Last Taken ?Type pen needle, diabetic 29 gauge x #100 ea 08/10/23 Unknown Rx 1/2 (Ultra-Thin II Insulin Pen [place]) risankizumab-rzaa 150 mg/mL 150 mg subcut .[id number] PSORIASIS 02/07/24 Unknown History subcutaneous pen injector (Skyrizi) Insulin Basal Pump (Pt's Own) 1.8 unit subcut UD diabetes ##0 06/11/24 Unknown Rx [Pump, Basal] albuterol sulfate 90 mcg/actuation 1 - 2 puff inhalation Q4H PRN PRN 08/01/24 Unknown Rx aerosol inhaler (Ventolin HFA) Wheezing ##1 doxepin 6 mg tablet 6 mg PO QHS insomnia 10/18/24 Unknown History promethazine 25 mg tablet 50 mg PO Q6H PRN nausea and 10/18/24 Unknown History vomiting quetiapine 50 mg tablet,extended 50 mg PO QHS mood 10/18/24 Unknown History release 24 hr cholecalciferol (vitamin D3) 1,250 1,250 mcg PO QWEEK 12/14/24 Unknown History mcg (50,000 unit) capsule plecanatide 3 mg tablet (Trulance) 3 mg PO DAILY 12/14/24 Unknown History haloperidol 5 mg tablet 5 mg PO TID PRN nausea and 12/16/24 Unknown Rx vomiting #20 tabs gabapentin 300 mg capsule 300 mg PO BID 01/08/25 Unknown History fluconazole 150 mg tablet 150 mg PO Q3D 2 doses #2 tabs 01/26/25 Unknown Rx insulin lispro 100 unit/mL See Rx Instructions .Route 01/26/25 Unknown Rx subcutaneous solution (Humalog .COMPLEX #10 mL U-100 Insulin) bisacodyl 5 mg tablet,delayed 5 mg PO ONCE #2 tabs 02/11/25 Unknown Rx release (Dulcolax (bisacodyl)) peg 3350-electrolytes 236 240 ml PO Q10M #4,000 mL 02/11/25 Unknown Rx gram-22.74 gram-6.74 gram-5.86 gram solution (Golytely) polyethylene glycol 3350 17 17 g PO Q10M #119 grams 02/11/25 Unknown Rx gram/dose oral powder (Miralax) simethicone 125 mg chewable tablet 125 mg PO .COMPLEX PRN abdominal 02/11/25 Unknown Rx (Gas-X Extra Strength) distention #6 tabs Allergy/AdvReac Type Severity Reaction Status Date / Time adhesive tape Allergy Intermediate Rash Verified 02/18/25 12:26 cephalexin (From Keflex) Allergy Intermediate yeast Verified 02/18/25 12:26 infection morphine Allergy Intermediate Rash Verified 02/18/25 12:26 oxycodone (From Percocet) Allergy Intermediate Rash Verified 02/18/25 12:26 ondansetron AdvReac I BLACK Verified 02/18/25 12:26 OUT AND LOSE CONTROL OF MY BLADDER Family History Mother Anxiety and depression Bipolar disorder PCOS (polycystic ovarian syndrome) Father Valvular heart disease Surgical History H/O tubal ligation History of loop recorder Hx of appendectomy Hx of eye surgery H/O aortic root repair Social History household members: spouse Smoking Status: Current every day smoker tobacco type: e-cigarettes Electronic Cigarette Use: with nicotine alcohol intake: never substance use type: marijuana ROS ROS ED Constitutional Constitutional ED: Reports chills; Denies fever(s) Respiratory/Chest Respiratory/Chest: Denies cough or dyspnea Gastrointestinal Gastrointestinal: Reports abdominal pain, nausea and vomiting; Denies constipation, diarrhea or melena Genitourinary Genitourinary ED: Denies dysuria or urinary frequency Musculoskeletal Musculoskeletal: Denies arthralgias or myalgias Neurologic Neurologic: Reports weakness Hematologic/Lymphatic Hematologic/Lymphatic: Denies easy bleeding or easy bruising EXAM Physical Exam Const Vital Signs: 02/18/25 12:27 02/18/25 16:09 Temperature 97.5 F L Temperature Source Oral Pulse Rate 63 50 L Respiratory Rate 18 16 Blood Pressure 108/60 112/50 L Blood Pressure Mean 76 70 Pulse Ox 97 100 Oxygen Delivery Method Room Air Room Air Positive well nourished and well developed Constitutional Narrative: Patient uncomfortable appearing secondary to retching but does not appear to be in any acute distress General Appearance ED: well developed; Negative for diaphoretic or pallor HEENT Reports dry mucous membranes Mouth ED: Yes dry mucous membranes Mouth: dry mucous membranes Eyes General Eye ED: Negative for scleral icterus Neck supple Chest Wall inspection of chest normal and palpation of chest normal Chest Narrative: Port in place in the left chest wall Resp normal respiratory effort Cardio regular rate and regular rhythm Extremity normal to inspection General Extremety ED: Negative for edema General Extremity: Negative for edema Neuro oriented x3 Sensorium / Orientation: alert Motor Exam: general weakness Psych mental status grossly normal Skin no rashes or lesions noted and no wounds General Skin Exam: Negative for jaundice or pallor MDM MDM MDM Narrative Medical decision making narrative: Patient evaluated for intractable nausea and vomiting that started this morning associate abdominal pain. Does have a history of type 1 diabetes mellitus as well as gastroparesis/cyclic vomiting disorder. Differential includes DKA, flavor of gastroparesis, electrolyte abnormality, dehydration, YANDY, UTI, pancreatitis, cholecystitis, small bowel obstruction (lower suspicion given she had a bowel movement this morning). Patient given IV fluids and IV Haldol. Will obtain workup including CBC, CMP, EKG (to check for QTc), VBG to check for pH given her history of type 1 diabetes mellitus, acetone, urine and urinalysis. VBG shows a mixed metabolic and respiratory alkalosis. White blood cell count 18.8 which could be reactive. CMP shows an elevated anion gap of 20 with a bicarb of 15.4. Glucose is elevated at 324. Magnesium is normal. The remainder of the CMP unremarkable. Urinalysis shows 150 ketones but not consistent with infection. Patient is her second liter of IV fluids. BHB still pending at this time. BHB is elevated at 2.2. Given her elevated anion gap and elevated acetone as well as 150 ketones in her urine will be treated for DKA. Started on insulin drip. Urinalysis consistent with contamination but not infection. I suspect her leukocytosis is reactive. Case discussed with hospitalist, Dr. Lobo. Patient does have improvement of vomiting after receiving IV Haldol. Lab Data Attestation: I reviewed the patient's lab results. Labs: Laboratory Results - last 24 hr 02/18/25 02/18/25 14:15 17:15 WBC 18.8 H RBC 4.68 Hgb 13.7 Hct 41.2 MCV 88.0 MCH 29.3 MCHC 33.3 RDW Std Deviation 42.8 RDW Coeff of Joyce 13.3 Plt Count 226 MPV 11.8 Immature Gran % (Auto) 1.600 H Neut % (Auto) 90.9 H Lymph % (Auto) 4.7 L [place] % (Auto) 2.3 Eos % (Auto) 0.0 Baso % (Auto) 0.5 Absolute Neuts (auto) 17.1 H Absolute Lymphs (auto) 0.88 Nucleated RBC % 0 Sodium 136 Potassium 4.2 Chloride 101 Carbon Dioxide 15.4 L Anion Gap 20 H BUN 11 Creatinine 0.73 Est GFR (MDRD) Non-Af 114 BUN/Creatinine Ratio 15.1 Glucose 324 H Calcium 9.6 Magnesium 1.5 Total Bilirubin 0.79 AST 17 ALT 11 Alkaline Phosphatase 85 Total Protein 6.9 Albumin 4.3 Globulin 2.6 Albumin/Globulin Ratio 1.7 Lipase 9 L b-Hydroxybutyric mmol/L 2.2 H Serum , Qual NEGATIVE Urine Color Yellow Urine Clarity Sl. Cloudy Urine pH 8.0 Ur Specific [place] 1.015 Urine Protein 30 H Urine Glucose (UA) 1000 H Urine Ketones 150 A* Urine Occult Blood 25 H Urine Nitrite Negative Urine Bilirubin Negative Urine Urobilinogen Normal Ur Leukocyte Esterase Negative Urine RBC 0-5 SEEN Urine WBC 0-5 SEEN Ur Squamous Epith Cells 5-10 SEEN Urine Bacteria 0 SEEN Urine Mucus 0 SEEN POC Glucose 265 H ABG Data ABG results: ABG 02/18/25 14:28 Specimen Type ISABELLE Sample Site Not entered VBG pH 7.52 H VBG pO2 29 VBG HCO3 22 VBG Total CO2 22 L VBG O2 Sat (Calc) 64 VBG Base Excess -1 POC Mix VBG pCO2 Pt Tmp 26.5 L O2 Delivery Device Not entered Rhythm Strip Rhythm Strip: Sinus Rhythm Rate: 41 Ectopy: None EKG Initial EKG: Attestation: I personally reviewed and interpreted this EKG as follows: Interpretation: Sinus Bradycardia Comments: Sinus bradycardia rate of 41 bpm Normal axis Normal intervals Normal ST segments Management Discussion w/another healthcare provider: Hospitalist Critical Care Time Critical Care Time: Yes Critical care time (excluding procedures): 30-74 minutes (36), Discussing w/Patient &/or Family/[employer] Value Added Assessor and Arranging Admission or Transfer Discharge Plan Dx/Rx/DC Orders Clinical Impression: DKA (diabetic ketoacidoses), Intractable nausea and vomiting, Acute respiratory alkalosis Disposition Disposition: [facility] Discharge Date/Time: 02/18/25 17:39
[2025-02-18 14:33] LABS: Absolute Lymphocyte Count 0.88 X10^3/uL (0.83-4.51); Absolute Neutrophil Count 17.1 X10^3/uL (2.0-7.7); Basophil% 0.5 % (0-1); Hematocrit 41.2 % (37-47); Hemoglobin 13.7 g/dL (12.0-15.0); Lymphocyte # 0.88 X10^3/ul (0.83-4.51); Lymphocyte % 4.7 % (19-41); Mean Corp Hgb Conc 33.3 g/dL (32-36); Mean Corpuscular Hgb 29.3 pg (27.0-32.0); Mean Platelet Vol. 11.8 fl (6.2-12.0); Monocyte# 0.44 X10^3/uL; Monocyte% 2.3 % (0-10); NRBC Flagged by Analyzer 0 % (0-5); Neutrophil # 17.09 X10^3/uL (2.7-7.7); Neutrophil % 90.9 % (47-70); Platelet Count 226 K/mm3 (150-450); RBC Distribution Width CV 13.3 % (11.6-14.6); RBC Distribution Width SD 42.8 fl (35.1-43.9); Red Blood Count 4.68 M/mm3 (4.2-5.4); White Blood Count 18.8 K/mm3 (4.4-11.0)
[2025-02-18 14:33] LABS: Blood Gas Specimen Type VEN; O2 Delivery Device Not entered; SITE Not entered; VBG BASE EXCESS -1 mmol/L (-1.0-3.5); VBG Bicarbonate 22 mmol/L (22-26); VBG PO2 29 mmHg (25-40); VBG SO2 64 % (50-70); VBG TCO2 22 mmol/L (23-33); VBG pCO2 26.5 mmHg (41-51); VBG pH 7.52 (7.32-7.42)
[2025-02-18 14:50] LABS: Color, Urine Yellow (Yellow); Glucose, Dipstick 1000 mg/dl (Normal); Leukocyte Esterase-Dipstick Negative /ul (Negative); Nitrite-Dipstick Negative (Negative); Occult Blood-Urine 25 /ul (Negative); Protein-Dipstick 30 mg/dl (Negative); Specific Gravity, Urine 1.015 (1.002-1.030); Urine Bilirubin Dipstick Negative (Negative); Urine Clarity Sl. Cloudy (Clear); Urine Urobilinogen Normal (Normal)
[2025-02-18 14:58] LABS: Ketone-Dipstick 150 mg/dl (Negative)
[2025-02-18 15:00] LABS: Internal QC Validated? YES +Cl - CLEAR BKGD; Pregnancy, Serum, hCG Quali. NEGATIVE Negative; Record Kit Lot#, Serum Preg. 947241
[2025-02-18 15:05] LABS: ALB/GLOB Ratio 1.7 RATIO (0.9-2.4); AST(SGOT) 17 U/L (<=31); Alanine Aminotransfer ALT/SGPT 11 U/L (<=34); Albumin, Serum 4.3 g/dL (3.5-5.0); Alkaline Phosphatase 85 U/L (35-104); Anion Gap 20 (5-15); BUN 11 mg/dL (4-19); BUN/Creat Ratio 15.1 RATIO (10-20); Calcium,Total 9.6 mg/dL (7.6-11.0); Carbon Dioxide 15.4 mmol/L (21.0-32.0); Chloride 101 mmol/L (98-108); Creatinine, Serum 0.73 mg/dL (0.70-1.20); EST Glomerular Filtration Rate 114 (>60); Globulin 2.6 g/dL (2.2-4.2); Glucose 324 mg/dL (70-99); Lipase 9 U/L (13-75); Magnesium 1.5 mg/dL (1.5-2.2); Potassium 4.2 mmol/L (3.3-5.1); Protein, Total 6.9 g/dL (5.9-8.4); Sodium Level 136 mmol/L (133-145); Total Bilirubin 0.79 mg/dL (0.00-1.30)
[2025-02-18 15:33] LABS: Squamous Epithelial Cells - UA 5-10 SEEN /hpf (5-10)
[2025-02-18 15:34] LABS: Red Blood Cells-Urine 0-5 SEEN /hpf (0-5); White Blood Cells 0-5 SEEN /hpf (0-5)
[2025-02-18 16:14] LABS: BETA-HYDROXYBUTYRATE 2.2 mmol/L (0.0-0.3)
[2025-02-18] MEDS: Insulin Lispro 100 UNIT in 0.9% Normal Saline (100mL Bag) 99 ML 7.8 UNIT CONT INF (17:17)
[2025-02-18] MEDS: Famotidine 200 MG/20 ML MDV 20 MG in 0.9% Normal Saline (Pres. free 8 ML 300 MG IV (17:17)
--- NOTE | 2025-02-18 17:18 | PCM.HP.STD ---
HPI - General General Date of Admission: 02/18/25 Date of Service: 02/18/25 Chief Complaint: n/v/abd pain HPI Narrative THEODORE VILLA, is a 29-year-old female history of gastroparesis, type 1 diabetes, multiple episodes of DKA, PTSD and borderline personality disorder as well as marijuana use with cyclical vomiting presented to [facility] ED 02/18/2025 with abdominal pain, nausea, and vomiting that started at 9 AM. For she thought it was her gastroparesis but in the ED was found to be in DKA with a glucose of 324, bicarb of 15.4 and gap of 20, UA showed ketones and beta hydroxybutyrate of 2.2. White blood cell count noted to be 18.8. Of note patient's venous pH 7.52 but appears that she is overcompensating as her CO2 is 22, also likely has in part contraction alkalosis. Patient vitally stable and hospitalist contacted for admission to the ICU for DKA. Patient evaluated at bedside and reluctant to engage, she reports the nausea and vomiting and abdominal discomfort that is generalized and started this morning. Reports before today her glucose had been in the low 100s with the highest she has seen recently at 150 but now she is very stressed. Denies fevers or chills. Reports this feels just like her gastroparesis [facility] Medical History Metabolic acidosis Vomiting Diabetic gastroparesis delivery delivered History of marijuana use Hx of diabetic gastroparesis Diabetes mellitus with hyperglycemia Intractable cyclical vomiting with nausea Depression Compensated metabolic acidosis Dysuria UTI (urinary tract infection) Hypokalemia Type 1 diabetes Metabolic acidosis Leukocytosis DKA, type 1 Intractable abdominal pain Intractable nausea and vomiting Panic disorder Major depressive disorder, recurrent severe without psychotic features Substance abuse Kidney stones Kidney disease Smoker Intractable vomiting Type 1 diabetes Marfan syndrome PTSD (post-traumatic stress disorder) Borderline personality disorder Home Medications ?Medication ?Instructions ?Recorded ?Last Taken ?Type pen needle, diabetic 29 gauge x #100 ea 08/10/23 Unknown Rx 1/2 (Ultra-Thin II Insulin Pen [place]) risankizumab-rzaa 150 mg/mL 150 mg subcut .[id number] PSORIASIS 02/07/24 Unknown History subcutaneous pen injector (Skyrizi) Insulin Basal Pump (Pt's Own) 1.8 unit subcut UD diabetes ##0 06/11/24 Unknown Rx [Pump, Basal] albuterol sulfate 90 mcg/actuation 1 - 2 puff inhalation Q4H PRN PRN 08/01/24 Unknown Rx aerosol inhaler (Ventolin HFA) Wheezing ##1 doxepin 6 mg tablet 6 mg PO QHS insomnia 10/18/24 Unknown History promethazine 25 mg tablet 50 mg PO Q6H PRN nausea and 10/18/24 Unknown History vomiting quetiapine 50 mg tablet,extended 50 mg PO QHS mood 10/18/24 Unknown History release 24 hr cholecalciferol (vitamin D3) 1,250 1,250 mcg PO QWEEK 12/14/24 Unknown History mcg (50,000 unit) capsule plecanatide 3 mg tablet (Trulance) 3 mg PO DAILY 12/14/24 Unknown History haloperidol 5 mg tablet 5 mg PO TID PRN nausea and 12/16/24 Unknown Rx vomiting #20 tabs gabapentin 300 mg capsule 300 mg PO BID 01/08/25 Unknown History fluconazole 150 mg tablet 150 mg PO Q3D 2 doses #2 tabs 01/26/25 Unknown Rx insulin lispro 100 unit/mL See Rx Instructions .Route 01/26/25 Unknown Rx subcutaneous solution (Humalog .COMPLEX #10 mL U-100 Insulin) bisacodyl 5 mg tablet,delayed 5 mg PO ONCE #2 tabs 02/11/25 Unknown Rx release (Dulcolax (bisacodyl)) peg 3350-electrolytes 236 240 ml PO Q10M #4,000 mL 02/11/25 Unknown Rx gram-22.74 gram-6.74 gram-5.86 gram solution (Golytely) polyethylene glycol 3350 17 17 g PO Q10M #119 grams 02/11/25 Unknown Rx gram/dose oral powder (Miralax) simethicone 125 mg chewable tablet 125 mg PO .COMPLEX PRN abdominal 02/11/25 Unknown Rx (Gas-X Extra Strength) distention #6 tabs Allergy/AdvReac Type Severity Reaction Status Date / Time adhesive tape Allergy Intermediate Rash Verified 02/18/25 12:26 cephalexin (From Keflex) Allergy Intermediate yeast Verified 02/18/25 12:26 infection morphine Allergy Intermediate Rash Verified 02/18/25 12:26 oxycodone (From Percocet) Allergy Intermediate Rash Verified 02/18/25 12:26 ondansetron AdvReac I BLACK Verified 02/18/25 12:26 OUT AND LOSE CONTROL OF MY BLADDER Family History Mother Anxiety and depression Bipolar disorder PCOS (polycystic ovarian syndrome) Father Valvular heart disease Surgical History H/O tubal ligation History of loop recorder Hx of appendectomy Hx of eye surgery H/O aortic root repair Social History household members: spouse Smoking Status: Current every day smoker tobacco type: e-cigarettes Electronic Cigarette Use: with nicotine alcohol intake: never substance use type: marijuana ROS ROS Narrative General: Denies fever/chills, just feels generally unwell HENT: Denies headache, denies stuffy nose, denies sore throat EYES: Denies changes in vision Resp: Denies cough, denies shortness of breath Cardiac: Denies chest pain GI: Some generalized abdominal discomfort, denies any new changes in bowel, nausea and vomiting : Denies changes in urination Extremity: Denies swelling MSK: Denies weakness Neuro: Denies any numbness/tingling Heme: Denies any bleeding or bruising Skin: Denies rashes Psychiatric: No complaints voiced Vital Signs Vital Signs Vital Signs: 02/18/25 12:27 02/18/25 16:09 Temperature 97.5 F L Temperature Source Oral Pulse Rate 63 50 L Respiratory Rate 18 16 Blood Pressure 108/60 112/50 L Blood Pressure Mean 76 70 Pulse Ox 97 100 Oxygen Delivery Method Room Air Room Air Weight Weight: 78 kg Body Mass Index (BMI) 25.4 Physical Exam Narrative General: Alert and oriented, laying on side, appears irritable but not acutely distressed HEENT: Atraumatic, normocephalic Eyes: Anicteric, normal conjunctiva, extraocular movements grossly intact Neck: Supple Respiratory: Clear to auscultation bilaterally, normal respiratory effort Cardiovascular: Regular rate and rhythm GI: Soft, no significant tenderness on palpation, nondistended, no rebound, guarding, rigidity Extremities: No edema Musculoskeletal: Moving all extremities Neuro: No overt focal neurological deficits Skin: No rashes appreciated Psych: Irritable, superficially cooperative Results Lab / Micro Data 02/18/25 14:15 02/18/25 14:15 Labs: Laboratory Results - last 24 hr 02/18/25 14:15: WBC 18.8 H, RBC 4.68, Hgb 13.7, Hct 41.2, MCV 88.0, MCH 29.3, MCHC 33.3, RDW Std Deviation 42.8, RDW Coeff of Joyce 13.3, Plt Count 226, MPV 11.8, Immature Gran % (Auto) 1.600 H, Neut % (Auto) 90.9 H, Lymph % (Auto) 4.7 L, [place] % (Auto) 2.3, Eos % (Auto) 0.0, Baso % (Auto) 0.5, Absolute Neuts (auto) 17.1 H, Absolute Lymphs (auto) 0.88, Nucleated RBC % 0, Sodium 136, Potassium 4.2, Chloride 101, Carbon Dioxide 15.4 L, Anion Gap 20 H, BUN 11, Creatinine 0.73, Est GFR (MDRD) Non-Af 114, BUN/Creatinine Ratio 15.1, Glucose 324 H, Calcium 9.6, Magnesium 1.5, Total Bilirubin 0.79, AST 17, ALT 11, Alkaline Phosphatase 85, Total Protein 6.9, Albumin 4.3, Globulin 2.6, Albumin/Globulin Ratio 1.7, Lipase 9 L, b-Hydroxybutyric mmol/L 2.2 H, Serum , Qual NEGATIVE, Urine Color Yellow, Urine Clarity Sl. Cloudy, Urine pH 8.0, Ur Specific [place] 1.015, Urine Protein 30 H, Urine Glucose (UA) 1000 H, Urine Ketones 150 A*, Urine Occult Blood 25 H, Urine Nitrite Negative, Urine Bilirubin Negative, Urine Urobilinogen Normal, Ur Leukocyte Esterase Negative, Urine RBC 0-5 SEEN, Urine WBC 0-5 SEEN, Ur Squamous Epith Cells 5-10 SEEN, Urine Bacteria 0 SEEN, Urine Mucus 0 SEEN ABG Data ABG results: ABG 02/18/25 14:28 Specimen Type ISABELLE Sample Site Not entered VBG pH 7.52 H VBG pO2 29 VBG HCO3 22 VBG Total CO2 22 L VBG O2 Sat (Calc) 64 VBG Base Excess -1 POC Mix VBG pCO2 Pt Tmp 26.5 L O2 Delivery Device Not entered Rhythm Strip Rhythm Strip: Sinus Rhythm Rate: 41 Ectopy: None Assessment & Plan Assessment/Plan (1) DKA (diabetic ketoacidoses): PLAN: Plan #DKA in setting of chronic type 1 diabetes -Serum glucose in ED 324, anion gap 20 with a bicarb of 15.4 -Urine ketones positive -Serum beta hydroxybutyrate 2.2 -Admit to intensive care unit -N.p.o. -Insulin drip started -Aggressive fluid hydration -Glucose checks and DKA protocol -BMP every 4H -Replace electrolytes per protocol -I's and O's -A1c in the a.m. -When serum glucose is <250 mg/dl, change IV fluids to D5%1/2NS at 150 ml/hr and continue insulin drip as per nomogram # History of gastroparesis and cyclical vomiting - IV fluids - Antiemetics - Supportive care # Mood disorder NOS - Continue home medications # Psoriasis - Patient on outpatient injection #DVT ppx: Lovenox subcu Ileana Lobo MD Charges/Coding Visit Charges Inpatient E&M: 42549 Init Hosp L2
[2025-02-18 17:42] LABS: Bedside Glucose 265 mg/dL (74-106)
[2025-02-18 19:08] LABS: Bedside Glucose 144 mg/dL (74-106)
[2025-02-18] MEDS: Magnesium Sulfate 4gm/100mL 4 GM/100 ML IV.SOLN. IV (19:29)
[2025-02-18] MEDS: 0.9% Normal Saline (1000mL) 1,000 ML 500 ML IV (19:31)
[2025-02-18] MEDS: Dext 5%-0.45% NS 1,000 ML 150 ML IV (19:34)
[2025-02-18 20:14] LABS: Bedside Glucose 97 mg/dL (74-106)
[2025-02-18] MEDS: 0.9% Saline Lock 10 ML Syringe IV (21:00)
[2025-02-18] MEDS: Gabapentin 300 MG Capsule PO (21:00)
[2025-02-18] MEDS: proCHLORPERazine 10 MG/2 ML Vial 5 MG IV (21:00)
[2025-02-18] MEDS: QUEtiapine 25 MG Tablet PO (21:00)
[2025-02-18 21:15] LABS: Anion Gap 12 (5-15); BUN 9 mg/dL (4-19); BUN/Creat Ratio 16.4 RATIO (10-20); Calcium,Total 7.8 mg/dL (7.6-11.0); Carbon Dioxide 17.2 mmol/L (21.0-32.0); Chloride 107 mmol/L (98-108); Creatinine, Serum 0.57 mg/dL (0.70-1.20); EST Glomerular Filtration Rate 125 (>60); Estimated Creatinine Clearance 150.82 ml/min (50-250); Glucose 111 mg/dL (70-99); Potassium 3.9 mmol/L (3.3-5.1); Sodium Level 137 mmol/L (133-145)
[2025-02-18 21:20] LABS: Bedside Glucose 93 mg/dL (74-106)
[2025-02-18 22:16] LABS: Bedside Glucose 121 mg/dL (74-106)
[2025-02-18 23:24] LABS: Bedside Glucose 125 mg/dL (74-106)
[2025-02-19] VITALS (21 sets, daily range): BP systolic 91–149; BP diastolic 44–86; PULSE 57–124; RESP 12–27; TEMP 36.1–36.7; O2SAT 96–99; BMI 25.2
[2025-02-19 00:51] LABS: Bedside Glucose 123 mg/dL (74-106)
[2025-02-19 01:14] LABS: Anion Gap 12 (5-15); BUN 7 mg/dL (4-19); BUN/Creat Ratio 13.3 RATIO (10-20); Calcium,Total 8.1 mg/dL (7.6-11.0); Carbon Dioxide 17.8 mmol/L (21.0-32.0); Chloride 108 mmol/L (98-108); Creatinine, Serum 0.56 mg/dL (0.70-1.20); EST Glomerular Filtration Rate 126 (>60); Estimated Creatinine Clearance 153.51 ml/min (50-250); Glucose 126 mg/dL (70-99); Potassium 3.7 mmol/L (3.3-5.1); Sodium Level 137 mmol/L (133-145)
[2025-02-19 02:23] LABS: Bedside Glucose 111 mg/dL (74-106)
[2025-02-19 02:23] LABS: Bedside Glucose 118 mg/dL (74-106)
[2025-02-19] MEDS: Dext 5%-0.45% NS 1,000 ML 150 ML IV (02:26)
[2025-02-19 03:40] LABS: Bedside Glucose 89 mg/dL (74-106)
[2025-02-19 04:32] LABS: Absolute Lymphocyte Count 1.08 X10^3/uL (0.83-4.51); Absolute Neutrophil Count 18.3 X10^3/uL (2.0-7.7); Basophil# 0.05 X10^3/uL; Basophil% 0.2 % (0-1); Hematocrit 35.4 % (37-47); Hemoglobin 11.8 g/dL (12.0-15.0); Lymphocyte # 1.08 X10^3/ul (0.83-4.51); Lymphocyte % 5.3 % (19-41); Mean Corp Hgb Conc 33.3 g/dL (32-36); Mean Corpuscular Hgb 29.7 pg (27.0-32.0); Mean Corpuscular Volume 89.2 fL (81-99); Mean Platelet Vol. 11.5 fl (6.2-12.0); Monocyte# 0.85 X10^3/uL; Monocyte% 4.1 % (0-10); NRBC Flagged by Analyzer 0 % (0-5); Neutrophil # 18.33 X10^3/uL (2.7-7.7); Neutrophil % 89.4 % (47-70); Platelet Count 188 K/mm3 (150-450); RBC Distribution Width CV 13.4 % (11.6-14.6); RBC Distribution Width SD 43.9 fl (35.1-43.9); Red Blood Count 3.97 M/mm3 (4.2-5.4); White Blood Count 20.5 K/mm3 (4.4-11.0)
[2025-02-19 04:37] LABS: Bedside Glucose 76 mg/dL (74-106)
[2025-02-19] MEDS: Dextrose 10%-Water 250 ML 999 ML IV ×2 (05:07→06:58)
[2025-02-19 05:26] LABS: Bedside Glucose 59 mg/dL (74-106)
[2025-02-19 05:43] LABS: Bedside Glucose 143 mg/dL (74-106)
[2025-02-19 05:44] LABS: Anion Gap 10 (5-15); BUN 6 mg/dL (4-19); BUN/Creat Ratio 10.8 RATIO (10-20); Carbon Dioxide 17.1 mmol/L (21.0-32.0); Chloride 112 mmol/L (98-108); Creatinine, Serum 0.57 mg/dL (0.70-1.20); EST Glomerular Filtration Rate 126 (>60); Estimated Creatinine Clearance 150.82 ml/min (50-250); Glucose 81 mg/dL (70-99); Magnesium 2.9 mg/dL (1.5-2.2); Sodium Level 139 mmol/L (133-145)
[2025-02-19 06:28] LABS: Bedside Glucose 93 mg/dL (74-106)
[2025-02-19] MEDS: Insulin Lispro 100 UNIT in 0.9% Normal Saline (100mL Bag) 99 ML CONT INF (06:58)
[2025-02-19 07:23] LABS: Bedside Glucose 59 mg/dL (74-106)
[2025-02-19 07:53] LABS: Bedside Glucose 146 mg/dL (74-106)
[2025-02-19] MEDS: proCHLORPERazine 10 MG/2 ML Vial 5 MG IV (09:38)
[2025-02-19] MEDS: Insulin Glargine-YFGN 100 UNIT/ML Pen 15 UNIT SC (10:25)
[2025-02-19] MEDS: Insulin Lispro 100 UNIT/ML INSULN.PEN SC ×3 (10:26→16:24)
[2025-02-19 10:41] LABS: Bedside Glucose 242 mg/dL (74-106)
--- NOTE | 2025-02-19 12:09 | PCM.PN.HOSP ---
Reason for Visit Reason for Visit: Diagnoses Type 2 diabetes mellitus with ketoacidosis without coma (02/18/25) Subjective Subjective Saw patient at bedside this morning. Patient was sitting up in bed and mildly nauseous appearing. Had transitioned her off the insulin drip earlier this morning as her gap closed and she was attempting to eat some breakfast. She had gone down a significant amount of water and some food but was feeling nauseous with this. Noted that she does still feel improved from yesterday. She denies any other new concerns this morning. Objective Data Objective Data Vital Signs: Vital Signs Temp Pulse Resp BP Pulse Ox O2 Del Method 97.9 F 124 H 24 H 139/86 H 98 Room Air 02/19/25 08:00 02/19/25 10:00 02/19/25 10:00 02/19/25 10:00 02/19/25 10:00 02/19/25 10:00 Oxygen Delivery Method Room Air Weight: 77.5 kg Body Mass Index (BMI) 25.2 Intake & Output: Intake and Output for Last 24 Hours 02/17/25 02/18/25 02/19/25 23:59 23:59 23:59 Intake Total 4141.17 / 4171.17 2489.70 / 2489.70 Output Total 300 / 300 Balance 3841.17 / 3871.17 2489.70 / 2489.70 Lab / Micro Data 02/19/25 04:19 02/19/25 12:15 Labs: Laboratory Results - last 24 hr 02/18/25 14:15: WBC 18.8 H, RBC 4.68, Hgb 13.7, Hct 41.2, MCV 88.0, MCH 29.3, MCHC 33.3, RDW Std Deviation 42.8, RDW Coeff of Joyce 13.3, Plt Count 226, MPV 11.8, Immature Gran % (Auto) 1.600 H, Neut % (Auto) 90.9 H, Lymph % (Auto) 4.7 L, [place] % (Auto) 2.3, Eos % (Auto) 0.0, Baso % (Auto) 0.5, Absolute Neuts (auto) 17.1 H, Absolute Lymphs (auto) 0.88, Nucleated RBC % 0, Sodium 136, Potassium 4.2, Chloride 101, Carbon Dioxide 15.4 L, Anion Gap 20 H, BUN 11, Creatinine 0.73, Est GFR (MDRD) Non-Af 114, BUN/Creatinine Ratio 15.1, Glucose 324 H, Calcium 9.6, Magnesium 1.5, Total Bilirubin 0.79, AST 17, ALT 11, Alkaline Phosphatase 85, Total Protein 6.9, Albumin 4.3, Globulin 2.6, Albumin/Globulin Ratio 1.7, Lipase 9 L, b-Hydroxybutyric mmol/L 2.2 H, Serum , Qual NEGATIVE, Urine Color Yellow, Urine Clarity Sl. Cloudy, Urine pH 8.0, Ur Specific [place] 1.015, Urine Protein 30 H, Urine Glucose (UA) 1000 H, Urine Ketones 150 A*, Urine Occult Blood 25 H, Urine Nitrite Negative, Urine Bilirubin Negative, Urine Urobilinogen Normal, Ur Leukocyte Esterase Negative, Urine RBC 0-5 SEEN, Urine WBC 0-5 SEEN, Ur Squamous Epith Cells 5-10 SEEN, Urine Bacteria 0 SEEN, Urine Mucus 0 SEEN 02/18/25 17:15: POC Glucose 265 H 02/18/25 18:50: POC Glucose 144 H 02/18/25 19:54: POC Glucose 97 02/18/25 20:20: Sodium 137, Potassium 3.9, Chloride 107, Carbon Dioxide 17.2 L, Anion Gap 12, BUN 9, Creatinine 0.57 L, Estim Creat Clear Calc 150.82, Est GFR (MDRD) Non-Af 125, BUN/Creatinine Ratio 16.4, Glucose 111 H, Calcium 7.8 02/18/25 20:59: POC Glucose 93 02/18/25 21:56: POC Glucose 121 H 02/18/25 23:05: POC Glucose 125 H 02/19/25 00:31: POC Glucose 123 H 02/19/25 00:34: Sodium 137, Potassium 3.7, Chloride 108, Carbon Dioxide 17.8 L, Anion Gap 12, BUN 7, Creatinine 0.56 L, Estim Creat Clear Calc 153.51, Est GFR (MDRD) Non-Af 126, BUN/Creatinine Ratio 13.3, Glucose 126 H, Calcium 8.1 02/19/25 01:07: POC Glucose 118 H 02/19/25 02:05: POC Glucose 111 H 02/19/25 03:21: POC Glucose 89 02/19/25 04:10: POC Glucose 76 02/19/25 04:19: WBC 20.5 H, RBC 3.97 L, Hgb 11.8 L, Hct 35.4 L, MCV 89.2, MCH 29.7, MCHC 33.3, RDW Std Deviation 43.9, RDW Coeff of Joyce 13.4, Plt Count 188, MPV 11.5, Immature Gran % (Auto) 1.000 H, Neut % (Auto) 89.4 H, Lymph % (Auto) 5.3 L, [place] % (Auto) 4.1, Eos % (Auto) 0.0, Baso % (Auto) 0.2, Absolute Neuts (auto) 18.3 H, Absolute Lymphs (auto) 1.08, Nucleated RBC % 0, Sodium 139, Potassium 4.0, Chloride 112 H, Carbon Dioxide 17.1 L, Anion Gap 10, BUN 6, Creatinine 0.57 L, Estim Creat Clear Calc 150.82, Est GFR (MDRD) Non-Af 126, BUN/Creatinine Ratio 10.8, Glucose 81, Calcium 8.0, Magnesium 2.9 H 02/19/25 05:05: POC Glucose 59 L 02/19/25 05:26: POC Glucose 143 H 02/19/25 06:07: POC Glucose 93 02/19/25 06:57: POC Glucose 59 L 02/19/25 07:36: POC Glucose 146 H 02/19/25 10:23: POC Glucose 242 H ABG Data ABG results: ABG 02/18/25 14:28 Specimen Type ISABELLE Sample Site Not entered VBG pH 7.52 H VBG pO2 29 VBG HCO3 22 VBG Total CO2 22 L VBG O2 Sat (Calc) 64 VBG Base Excess -1 POC Mix VBG pCO2 Pt Tmp 26.5 L O2 Delivery Device Not entered Rhythm Strip Rhythm Strip: Sinus Rhythm Rate: 41 Ectopy: None Physical Exam Const alert, oriented x3, no apparent distress and average body habitus Constitutional Narrative: Younger female, mildly fatigued appearing and mildly uncomfortable appearing due to nausea, otherwise sitting up in bed and answering questions appropriately. General Appearance: cooperative HEENT normocephalic, head/scalp atraumatic, hearing grossly normal bilaterally, nasal mucous membranes and turbinates normal and moist oral mucous membranes Eyes PERRL, EOMs intact bilaterally and conjunctivae normal Neck full ROM Chest inspection of chest normal Resp normal respiratory effort, normal air movement, no use of accessory muscles and clear to auscultation bilaterally Cardio regular rate, regular rhythm, no murmurs and peripheral pulses 2+ throughout GI normal to inspection, nondistended, normoactive bowel sounds, soft to palpation, non-tender and non-distended Back/Spine normal ROM Extremity normal to inspection, full ROM and no pedal edema Skin no rashes or lesions noted Psych mental status grossly normal Mood & Affect: anxious Assessment & Plan Assessment/Plan (1) DKA (diabetic ketoacidoses): PLAN: Plan Patient is a 29-year-old female who presented to [facility] ED on 02/18/2025 with nausea and vomiting. 1. DKA in setting of poorly controlled type 1 diabetes mellitus with diabetic neuropathy, diabetic gastroparesis and cyclical vomiting syndrome ? Presented with recurrent nausea and vomiting. History of recurrent DKA and poorly controlled diabetes. Most recent A1c 10.9%. Reports using insulin pump at home with 1.8 units/h of long-acting insulin (~42 units daily) and 1:10 carb ratio with meals. Only mild DKA on admit, glucose 324, bicarb 15, anion gap 20, beta-hydroxybutyrate 2.2. Resolved on insulin drip by morning of 02/19. Transitioned to Lantus 20 units twice daily and Humalog 7 units with meals plus sliding scale insulin. Will check repeat BMP this evening and again tomorrow morning along with beta-hydroxybutyrate tomorrow morning to ensure she does not go back into DKA. If she is doing well, will likely be okay for discharge home in the next 1 to 2 days. Continue home gabapentin. Symptomatic treatment of nausea with as needed Compazine and Phenergan. 2. Mood disorder ? Continue home Seroquel and doxepin. 3. Psoriasis ? Continue outpatient injections on discharge. DVT prophylaxis: Lovenox CODE STATUS: Full code, verified Expected disposition: Home, TBD Total clinical time spent by myself addressing the patient's medical issues, reviewing all the data, and collaborating with patient's care team: 35 minutes. Charges/Coding Visit Charges Inpatient E&M: 63676 Subs Hosp L2
[2025-02-19 13:25] LABS: Anion Gap 13 (5-15); BUN 6 mg/dL (4-19); BUN/Creat Ratio 8.8 RATIO (10-20); Calcium,Total 8.5 mg/dL (7.6-11.0); Carbon Dioxide 18.6 mmol/L (21.0-32.0); Chloride 107 mmol/L (98-108); Creatinine, Serum 0.63 mg/dL (0.70-1.20); EST Glomerular Filtration Rate 122 (>60); Estimated Creatinine Clearance 136.46 ml/min (50-250); Glucose 249 mg/dL (70-99); Potassium 4.1 mmol/L (3.3-5.1); Sodium Level 138 mmol/L (133-145)
--- NOTE | 2025-02-19 16:09 | CASEMGMT ---
Social Work SW called Leandra Casas, pt's case filler with [employer]. Message left letting her know that pt is here in the hospital. RUTHY Forrest
--- NOTE | 2025-02-19 16:13 | CASEMGMT ---
STIVEN SMILEY Readmission Chart Review Index Admission: 01/22/25-01/26/25. Dx: DKA Current: 02/18/25. Dx: DKA, Intractable N/V From the index admission, the pt discharged home with her SO and daughter. At the time, the pt reported that she had all of the supplies needed to care for her DM appropriately. Pt re-presents to [facility] ER in DKA with N/V. STIVEN SMILEY to the pt room at this time. The pt states that she has an insulin pump. Pt states that she does not have sensors but uses a manual glucometer to check her BS levels. Pt states that she can give herself insulin via her insulin pump after typing in her BS level as well as how many carbs she has eaten. Pt states to this RN CM that she was caring for her DM accordingly. Pt states, This is all because of my gastroparesis and vomiting, this happens every time. Pt states that she is tired of everyone accusing me of not taking my insulin like I should. This RN CM provided the pt with emotional support. Pt thanks this RN CM. The pt states again that she has all of the equipment (Insulin pump, glucometer, lancets, test strips, and EtOH swabs) that she needs to care for her DM and denies further concerns regarding the matter. Pt states that she was able to follow up with her PCP. Pt states that she was unable to follow up with her sap portal architect because the appt isn't until next month. Pt states that she is still active with [facility] and has home care giver q Monday, Monday, , and Monday. Pt states that she is still getting home-delivered meals. SW notified and plans to contact the patient's CM. Moving forward, pt plans to return home with her SO and daughter once medically ready. Pt states that she does not have a guaranteed ride home from [facility] unless her neighbor can get her. Pt was educated about [facility]. Pt states that she would appreciate it if this could be set up for her @ the time of DC. Pt denies further questions, concerns, or needs at this time. Sinai ARIAS RN, CM
[2025-02-19] MEDS: Insulin Lispro 100 UNIT/ML INSULN.PEN 7 UNIT SC (16:25)
[2025-02-19] MEDS: proMETHazine 25 MG/ML Syringe 6.25 MG IM (16:26)
[2025-02-19 16:48] LABS: Bedside Glucose 222 mg/dL (74-106)
[2025-02-19] MEDS: Gabapentin 300 MG Capsule PO (20:25)
[2025-02-19] MEDS: QUEtiapine 25 MG Tablet PO (20:25)
--- NOTE | 2025-02-19 20:36 | PCM.HOSP.N ---
Hospitalist Note Patient refusing long-acting insulin/ISS, adamant about her restarting her insulin pump. She currently does have all parameters known and available thus at this time we will attempt resumption as patient despite discussions with staff is unwilling to do temporary long-acting/ISS.
--- NOTE | 2025-02-19 20:37 | NURSING ---
Patient tearful on assessment because she is tired of staring at the robert and she wonders when she will be getting out of here. Explained to patient that they just made her PCU status but she will likely be spending the night here still because of bed availability. She possibly may get to be discharged tomorrow then. Patient agreeable with this plan. She also was crying because she doesn't think she is going to be getting enough insulin with the 20 units of lantus and the sliding scale that she is on. She is requesting to put back on her insulin pump. She states she does have it here in the closet. This RN spoke with Dr. Lombardo and she was agreeable to allow patient to put back on her pump with her home rates. This includes a basal rate of 1.8 un/hr and then correction for carbs/hyperglycemia. Patient informed of this information and will put back on her pump.
--- NOTE | 2025-02-19 20:43 | NURSING ---
Patient called out upset and said that she actually doesn't have any insulin with her to put in her pump. She states I guess I'll just have to do it your way. Patient offered the 20 units of ordered lantus. She said it's either that or AMA. She decided to call her fiance and see what she thinks.
[2025-02-19 20:45] LABS: Bedside Glucose 141 mg/dL (74-106)
--- NOTE | 2025-02-19 20:59 | NURSING ---
Addendum entered by Stella Bello 02/19/25 21:16: Dr. Lombardo said to check with pharmacy to make sure we don't stock insulin that she could use for her pump. Pharmacist said we do not. Dr. Lombardo notified of time of leaving, 2109. Original Note: Patient would like to leave AMA at this time because she doesn't have insulin for her pump and I can't risk you guys putting me back into DKA. Dr. Lombardo notified.
[2025-02-19] MEDS: 0.9% Saline Lock 10 ML Syringe IV (21:11)
--- NOTE | 2025-02-19 22:00 | PCM.HOSP.N ---
Hospitalist Note Patient left AMA at 21:10 secondary to being notified that we were unable to fill her pump and would need to continue the longacting and shortacting until then. Encouraged her to remain, but she left AMA.
[2025-02-20 04:59] LABS: Bedside Glucose 143 mg/dL (74-106)
--- NOTE | 2025-02-20 09:46 | CASEMGMT ---
Social Work KENISHA received a call from Leandra Casas from [facility], inquiring about pt. SW checked the chart, pt left AMA as pt was told that the hospital cannot fill her insulin pump and would have to be given short and termite treater helper insulin. KENISHA let Leandra know. RUTHY Forrest
--- NOTE | 2025-02-21 09:30 | PCM.DC.SUM ---
Providers Date of Admission: 02/18/25 Date of Discharge: 02/19/25 Primary Care Physician: SHAWNA Bellamy, CAD CAM PROGRAMMER-C Reason For Visit: DKA, INTRACTABLE NAUSEA AND VOMITING Diagnosis Discharge Diagnosis (1) DKA (diabetic ketoacidoses): Status: Acute Code(s): E11.10 - Type 2 diabetes mellitus with ketoacidosis without coma Medications at Discharge Home Medications pen needle, diabetic 29 gauge x 1/2 (Ultra-Thin II Insulin Pen [place]) #100 ea 08/10/23 risankizumab-rzaa 150 mg/mL subcutaneous pen injector (Skyrizi) 150 mg subcut .[id number] PSORIASIS 02/07/24 Insulin Basal Pump (Pt's Own) [Pump, Basal] 1.8 unit subcut UD diabetes ##0 06/11/24 albuterol sulfate 90 mcg/actuation aerosol inhaler (Ventolin HFA) 1 - 2 puff inhalation Q4H PRN PRN Wheezing ##1 08/01/24 doxepin 6 mg tablet 6 mg PO QHS insomnia 10/18/24 promethazine 25 mg tablet 50 mg PO Q6H PRN nausea and vomiting 10/18/24 quetiapine 50 mg tablet,extended release 24 hr 50 mg PO QHS mood 10/18/24 cholecalciferol (vitamin D3) 1,250 mcg (50,000 unit) capsule 1,250 mcg PO QWEEK 12/14/24 plecanatide 3 mg tablet (Trulance) 3 mg PO DAILY 12/14/24 haloperidol 5 mg tablet 5 mg PO TID PRN nausea and vomiting #20 tabs 12/16/24 gabapentin 300 mg capsule 300 mg PO BID 01/08/25 insulin lispro 100 unit/mL subcutaneous solution (Humalog U-100 Insulin) See Rx Instructions .Route .COMPLEX #10 mL 01/26/25 bisacodyl 5 mg tablet,delayed release (Dulcolax (bisacodyl)) 5 mg PO ONCE #2 tabs 02/11/25 peg 3350-electrolytes 236 gram-22.74 gram-6.74 gram-5.86 gram solution (Golytely) 240 ml PO Q10M #4,000 mL 02/11/25 polyethylene glycol 3350 17 gram/dose oral powder (Miralax) 17 g PO Q10M #119 grams 02/11/25 simethicone 125 mg chewable tablet (Gas-X Extra Strength) 125 mg PO .COMPLEX PRN abdominal distention #6 tabs 02/11/25 Hospital Course Operations None Procedures EKG Summary of Care Provided Minutes Spent on Discharge: 35 Hospital Course: Patient is a 29-year-old female who presented to [facility] ED on 02/18/2025 with nausea and vomiting. Hospital course as noted below. Patient unfortunately left AGAINST MEDICAL ADVICE on 02/19. 1. DKA in setting of poorly controlled type 1 diabetes mellitus with diabetic neuropathy, diabetic gastroparesis and cyclical vomiting syndrome ? Presented with recurrent nausea and vomiting. History of recurrent DKA and poorly controlled diabetes. Most recent A1c 10.9%. Reports using insulin pump at home with 1.8 units/h of long-acting insulin (~42 units daily) and 1:10 carb ratio with meals. Only mild DKA on admit, glucose 324, bicarb 15, anion gap 20, beta-hydroxybutyrate 2.2. Resolved on insulin drip by morning of 02/19. Transitioned to Lantus 20 units twice daily and Humalog 7 units with meals plus sliding scale insulin. Patient was adamant about restarting her pump while in the hospital but we were unable to fill her pump, so she left AGAINST MEDICAL ADVICE on the evening of 02/19. 2. Mood disorder ? Continue home Seroquel and doxepin. 3. Psoriasis ? Continue outpatient injections on discharge. Total clinical time spent by myself addressing the patient's medical issues, reviewing all the data, and collaborating with patient's care team: 35 minutes. Physical Exam Const alert, oriented x3, no apparent distress and average body habitus Constitutional Narrative: Younger female, mildly fatigued appearing and mildly uncomfortable appearing due to nausea, otherwise sitting up in bed and answering questions appropriately. General Appearance: cooperative HEENT normocephalic, head/scalp atraumatic, hearing grossly normal bilaterally, nasal mucous membranes and turbinates normal and moist oral mucous membranes Eyes PERRL, EOMs intact bilaterally and conjunctivae normal Neck full ROM Chest inspection of chest normal Resp normal respiratory effort, normal air movement, no use of accessory muscles and clear to auscultation bilaterally Cardio regular rate, regular rhythm, no murmurs and peripheral pulses 2+ throughout GI normal to inspection, nondistended, normoactive bowel sounds, soft to palpation, non-tender and non-distended Back/Spine normal ROM Extremity normal to inspection, full ROM and no pedal edema Skin no rashes or lesions noted Psych mental status grossly normal Mood & Affect: anxious Weight / BMI Weight Weight: 77.5 kg Body Mass Index (BMI) 25.2 ABG / Lab / Microbiology Data 02/19/25 04:19 02/19/25 12:15 D/C Instructions Discharge Diet: Carb Control Diet DC O2, CPAP, BIPAP Needs Home O2 Discharge instructions: No Meaningful Use Info Meaningful Use Meaningful Use Diagnoses (Choose all that apply): None applicable Ischemic Stroke Statin Dosing Therapy Reference: STATIN DOSE THERAPY REFERENCE: * Patients > 75 years receive moderate or high dose statin therapy. * Patients 75 years or YOUNGER should receive HIGH intensity statin dose unless contraindicated. You will be required to document reason for non-treatment if statin daily dose does not meet guidelines. HIGH DOSE STATIN THERAPY DAILY Atorvastatin > than or = to 40 mg Rosuvastatin > than or = to 20 mg Amlodipine + Atorvastatin > than or = to 2.5/40 mg Ezetimibe + Simvastatin 10/80 mg Simvastatin 80mg Discharge Plan Admission Admit Date/Time: 02/18/25 17:18 Primary Reason for Your Visit: nausea/vomiting Attending Provider: Dangelo Encarnacion Primary Care Provider: Jaime Barbour [facility] Consulting Providers: Ileana Lobo Discharge Orders/Prescriptions Prescriptions: Continued gabapentin 300 mg capsule 300 mg PO BID (DME) pen needle, diabetic [Ultra-Thin II Ins Pen [place]] 29 gauge x 1/2 needle See Rx Instructions .Route Qty: 100 0RF Rx Instructions: As directed Skyrizi 150 mg/mL pen injector 150 mg subcut .[id number] albuterol sulfate [Ventolin HFA] 90 mcg/actuation HFA aerosol inhaler 1 - 2 puff inhalation Q4H PRN PRN (Reason: Wheezing) Qty: 1 0RF cholecalciferol (vitamin D3) 1,250 mcg (50,000 unit) capsule 1,250 mcg PO QWEEK Trulance 3 mg tablet 3 mg PO DAILY haloperidol 5 mg tablet 5 mg PO TID PRN (Reason: nausea and vomiting) Qty: 20 0RF Rx Instructions: Take 1/2-1 3 times a day as needed nausea and vomiting insulin lispro [Humalog U-100 Insulin] 100 unit/mL solution See Rx Instructions .ROUTE .COMPLEX Qty: 10 4RF Rx Instructions: 100 U VIA PUMP DAILY; BASAL RATE - 1.8 UNITS/HOUR BOLUS: CARB RATIO- 1 UNIT /10 GRAMS OF CARBS CORRECTION- 1 UNIT FOR EVERY 30MG/DL BLOOD GLUCOSE OVER 120 Insulin Basal Pump (Pt's Own) [Pump, Basal] 1.8 unit subcut UD Qty: 0 0RF promethazine 25 mg tablet 50 mg PO Q6H PRN (Reason: nausea and vomiting) Rx Instructions: one or two every six hours for nausea quetiapine 50 mg tablet extended release 24 hr 50 mg PO QHS doxepin 6 mg tablet 6 mg PO QHS polyethylene glycol 3350 [Miralax] 17 gram/dose powder 17 g PO Q10M Qty: 119 0RF Rx Instructions: as directed for bowel prep peg 3350-electrolytes [Golytely] 236-22.74-6.74 -5.86 gram recon soln 240 ml PO Q10M Qty: 4000 0RF Rx Instructions: take as directed for split dose bowel prep simethicone [Gas-X Extra Strength] 125 mg tablet,chewable 125 mg PO .COMPLEX PRN (Reason: abdominal distention) Qty: 6 0RF Rx Instructions: 125 mg orally PRN; as directed for bowel prep bisacodyl [Dulcolax (bisacodyl)] 5 mg tablet,delayed release (DR/EC) 5 mg PO ONCE Qty: 2 0RF Rx Instructions: as directed for bowel prep Discontinued fluconazole 150 mg tablet 150 mg PO Q3D Qty: 2 0RF Referrals / Follow Up: Jaime Barbour VSGilberto, CAD CAM PROGRAMMER-C [Primary Care Provider] - Disposition Disposition (needs filled in before D/C Order can be placed): Against Medical Advice Charges/Coding Visit Charges Inpatient E&M: 77432 Disch Hosp >30min
== END 2025-02-19 21:10 | disposition left against medical advice (07) | DRG 638 ==
LOC: ED 14:51 → ICU 17:31
PROVIDERS: Admitting Provider Internal Medicine; Emergency Provider Emergency Medicine; Visit Provider Hospitalist
DX: E10.10 Type 1 diabetes mellitus with ketoacidosis without coma (principal); E87.3 Alkalosis; Q87.40 Marfan syndrome, unspecified; E10.43 Type 1 diabetes mellitus with diabetic autonomic (poly)neuropathy; F39 Unspecified mood [affective] disorder; K31.84 Gastroparesis; R11.2 Nausea with vomiting, unspecified; F17.290 Nicotine dependence, other tobacco product, uncomplicated; L40.9 Psoriasis, unspecified; Z79.4 Long term (current) use of insulin; R11.15 Cyclical vomiting syndrome unrelated to migraine; Z53.29 Procedure and treatment not carried out because of patient's decision for other reasons; Z96.41 Presence of insulin pump (external) (internal); Z79.899 Other long term (current) drug therapy
CPT/HCPCS: 36415; 80048; 80053; 81001; 82010; 82803; 82962; 83690; 83735; 84703; 85025; 93005; 99285; A4216

== ENCOUNTER → 2025-02-25 | Outpatient (CLI) | payer MEDICARE, MEDICAID, SELFPAY ==
[2025-02-25 12:55] LABS: Hematocrit 43.5 % (37-47); Hemoglobin 14.2 g/dL (12.0-15.0); Immature Granulocytes Count 0.230 X10^3/uL (0.0-0.0); Mean Corp Hgb Conc 32.6 g/dL (32-36); Mean Corpuscular Volume 89.9 fL (81-99); Mean Platelet Vol. 12.2 fl (6.2-12.0); NRBC Flagged by Analyzer 0 % (0-5); Platelet Count 201 K/mm3 (150-450); RBC Distribution Width CV 13.7 % (11.6-14.6); RBC Distribution Width SD 44.5 fl (35.1-43.9); Red Blood Count 4.84 M/mm3 (4.2-5.4); White Blood Count 13.1 K/mm3 (4.4-11.0)
[2025-02-25 13:34] LABS: AST(SGOT) 15 U/L (<=31); Alanine Aminotransfer ALT/SGPT 7 U/L (<=34); Albumin, Serum 4.2 g/dL (3.5-5.0); Alkaline Phosphatase 77 U/L (35-104); Anion Gap 14 (5-15); BUN 12 mg/dL (4-19); BUN/Creat Ratio 18.7 RATIO (10-20); Calcium,Total 9.2 mg/dL (7.6-11.0); Carbon Dioxide 20.2 mmol/L (21.0-32.0); Chloride 104 mmol/L (98-108); Globulin 2.6 g/dL (2.2-4.2); Glucose 153 mg/dL (70-99); Magnesium 2.2 mg/dL (1.5-2.2); Potassium 3.9 mmol/L (3.3-5.1)
== END | disposition home or self-care (01) ==
LOC: VSLAB 08:43
PROVIDERS: Visit Provider Nurse Practitioner Family
DX: E10.10 Type 1 diabetes mellitus with ketoacidosis without coma (principal)
CPT/HCPCS: 36415; 80053; 83735; 85025

== ENCOUNTER 2025-03-05 13:55 | Day surgery (SDC) | payer MEDICARE, MEDICAID, SELFPAY ==
--- NOTE | 2025-03-04 18:49 | PAT.ANESEVAL ---
Pre-Assessment Diagnosis/Proposed Procedure Planned Operative Procedure(s): Colonoscopy and EGD. Anesthesia History Anesthesia History - blocker automatic: Anesthesia History - blocker automatic Hx Hospitalization Yes: DKA AND GASTROPRISIS 06 03/03/25 14:33 Any Problems With Anesthesia No 03/03/25 14:33 Cholinesterase deficiency No 03/03/25 14:33 You/Your Family Experience No 03/03/25 14:33 fever (hyperthermia) with Relationship Recent Exposure to Contagious Disease Does patient have nerve No 03/03/25 14:33 stimulator Patient instructed to have device shut off --Does patient have Pacemaker or ICD? When Was Last Pacemaker Check QUESTION #4 FULL TEXT: You/Your Family Experience fever (hyperthermia) with Anesthesia Last Oral Intake Last Oral intake: Last Oral Intake NPO since Meds taken in AM with sips of water? Meds patient instructed to take am of surgery PONV PONV - blocker automatic: PONV - blocker automatic Female Yes 03/03/25 14:33 HX of Motion Sickness No 03/03/25 14:33 HX of N/V After Surgery No 03/03/25 14:33 Non-Smoker No 03/03/25 14:33 Duration of Surgery greater No 03/03/25 14:33 than 60 minutes Number of Risk Factors 1 03/03/25 14:33 PONV Score Low Risk 03/03/25 14:33 Height & Weight Height & Weight: Anesthesia: Height & Weight Height 5 ft 9 in 12/14/24 23:26 Respiratory Assessment Respiratory Assessment - blocker automatic: Respiratory Tract Infection Hx - blocker automatic Hx Respiratory Tract Infection No 03/03/25 14:33 STOP Sleep Apnea STOP Sleep Apnea - blocker automatic: STOP Sleep Apnea - blocker automatic Hx Hypertension No 03/03/25 14:33 Hx Sleep Apnea No 03/03/25 14:33 CPAP BIPAP Do you snore loudly (louder No 03/03/25 14:33 than talking or can be heard Do you often feel tired/ No 03/03/25 14:33 fatigued/ sleepy during daytime? Has anyone observed you stop No 03/03/25 14:33 breathing during sleep? STOP Results Negative 03/03/25 14:33 QUESTION #5 FULL TEXT : Do you snore loudly (louder than talking or can be heard through closed doors)? 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 Specify any problems Hx of Preganancy in last 3 N/A 03/03/25 14:33 Months Nurse Filling Out Transfusion NBUCHER 03/03/25 14:33 & Questions: Date: 03/03/25 03/03/25 14:33 Time: 14:34 03/03/25 14:33 Patient unable to answer at this time (ie. confused, unrespo /Reproduction History /Reproductive History - blocker automatic: /Reproductive Hx- blocker automatic Hx Now No 03/03/25 14:33 Gestational Age (in weeks): EDC: Hx Hx Para Hx Section SAB No 03/03/25 14:33 [facility] History (Updated 03/03/25 @ 14:42 by Alysha Skelton) Wears glasses Marijuana use Syncope Gastroparesis Electronic cigarette use History of echocardiogram History of stress test Cardiology follow-up encounter Metabolic acidosis Vomiting delivery delivered History of marijuana use Hx of diabetic gastroparesis Diabetes mellitus with hyperglycemia Intractable cyclical vomiting with nausea Depression Compensated metabolic acidosis Dysuria UTI (urinary tract infection) Hypokalemia Type 1 diabetes Metabolic acidosis Leukocytosis DKA, type 1 Intractable abdominal pain Intractable nausea and vomiting Panic disorder Major depressive disorder, recurrent severe without psychotic features Diabetic gastroparesis Substance abuse Kidney stones Kidney disease Smoker Intractable vomiting Type 1 diabetes Marfan syndrome PTSD (post-traumatic stress disorder) Borderline personality disorder Home Medications ?Medication ?Instructions ?Recorded ?Last Taken ?Type pen needle, diabetic 29 gauge x #100 ea 08/10/23 Unknown Rx 1/2 (Ultra-Thin II Insulin Pen [place]) risankizumab-rzaa 150 mg/mL 150 mg subcut .[id number] PSORIASIS 02/07/24 Unknown History subcutaneous pen injector (Skyrizi) Insulin Basal Pump (Pt's Own) 1.8 unit subcut UD diabetes ##0 06/11/24 Unknown Rx [Pump, Basal] albuterol sulfate 90 mcg/actuation 1 - 2 puff inhalation Q4H PRN PRN 08/01/24 Unknown Rx aerosol inhaler (Ventolin HFA) Wheezing ##1 doxepin 6 mg tablet 6 mg PO QHS insomnia 10/18/24 Unknown History promethazine 25 mg tablet 50 mg PO Q6H PRN nausea and 10/18/24 Unknown History vomiting quetiapine 50 mg tablet,extended 50 mg PO QHS mood 10/18/24 Unknown History release 24 hr cholecalciferol (vitamin D3) 1,250 1,250 mcg PO QWEEK 12/14/24 Unknown History mcg (50,000 unit) capsule plecanatide 3 mg tablet (Trulance) 3 mg PO DAILY 12/14/24 Unknown History haloperidol 5 mg tablet 5 mg PO TID PRN nausea and 12/16/24 Unknown Rx vomiting #20 tabs gabapentin 300 mg capsule 600 mg PO BID 01/08/25 Unknown History insulin lispro 100 unit/mL See Rx Instructions .Route 01/26/25 Unknown Rx subcutaneous solution (Humalog .COMPLEX #10 mL U-100 Insulin) bisacodyl 5 mg tablet,delayed 5 mg PO ONCE #2 tabs 02/11/25 Unknown Rx release (Dulcolax (bisacodyl)) peg 3350-electrolytes 236 240 ml PO Q10M #4,000 mL 02/11/25 Unknown Rx gram-22.74 gram-6.74 gram-5.86 gram solution (Golytely) polyethylene glycol 3350 17 17 g PO Q10M #119 grams 02/11/25 Unknown Rx gram/dose oral powder (Miralax) simethicone 125 mg chewable tablet 125 mg PO .COMPLEX PRN abdominal 02/11/25 Unknown Rx (Gas-X Extra Strength) distention #6 tabs prochlorperazine maleate 10 mg 10 mg PO TID PRN PRN 03/03/25 Unknown History tablet nausea/vomiting Allergy/AdvReac Type Severity Reaction Status Date / Time adhesive tape Allergy Intermediate Rash Verified 03/03/25 14:29 cephalexin (From Keflex) Allergy Intermediate yeast Verified 03/03/25 14:29 infection morphine Allergy Intermediate Rash Verified 03/03/25 14:29 oxycodone (From Percocet) Allergy Intermediate Rash Verified 03/03/25 14:29 ondansetron AdvReac I BLACK Verified 03/03/25 14:29 OUT AND LOSE CONTROL OF MY BLADDER Family History Mother Anxiety and depression Bipolar disorder PCOS (polycystic ovarian syndrome) Father Valvular heart disease Surgical History (Updated 03/04/25 @ 19:[address] Melchor Williamson MD) H/O tubal ligation History of loop recorder Hx of appendectomy Hx of eye surgery H/O aortic root repair Social History household members: spouse Smoking Status: Current every day smoker tobacco type: e-cigarettes Electronic Cigarette Use: with nicotine alcohol intake: never substance use type: marijuana Audit: Pertinent Findings Pertinent Findings EKG Perinent findings: February 18, 2025. Marked sinus bradycardia at 41 bpm. July 12, 2023. Normal sinus rhythm with sinus arrhythmia at heart rate of 96 bpm Stress test pertinent findings: Not found Echo (EF%) pertinent findings: September 09, 2020. EF of 55 to 60%. No aortic stenosis noted. Heart catheterization pertinent findings: September 11, 2020. EF of 60%. 1. Ascending root angiogram revealed a area of ascending aortic root repair. All major coronary arteries are normal. Medical therapy was recommended. Consult pertinent findings: Not found Additional pertinent findings: Loop recorder. Patient does have intermittent episodes of nonsustained SVT. Recommendation Anesthesia Recommendation Anesthesia recommendation: OPTIMIZED for anesthesia (Patient has a history of severe bradycardia as well as SVT. Should get a twelve-lead EKG on arrival.)
[2025-03-05] VITALS (8 sets, daily range): BP systolic 90–118; BP diastolic 49–80; PULSE 52–84; RESP 16–22; TEMP 36.2–37; O2SAT 97–100; BMI 24.0
--- NOTE | 2025-03-05 14:25 | HP.PCM_ITS ---
HPI - General General Date of Admission: 03/05/25 Date of Service: 03/05/25 HPI Narrative THEODORE VILLA, is a 29 F who presents with the Chief Complaint: second opioion Abdominal Pain and Nausea CT abdomen pelvis with IV contrast 11/03/[address] 10/18/2024 Moderate distention of the stomach, compatible with reported gastroparesis. The bowel loops are otherwise normal in caliber. No ascites or pneumoperitoneum. Prior appendectomy. - second opinion - [facility] at [facility] - Dr. Hylton - reports a h/o of Gastroparesis - reports she has done the pill cam 2x but has diarrhea and does not feel this has shown good imaging CBC: 12/25/2024 HGB 14.5, PLT 149 CMP: 12/25/2024 glucose 443, normal transaminases - Gabapentin 330mg BID - Trulance 3mg x2 months - Promethazine 50mg Q6 - Compazine 10mg PRN - failed reglan - no improvement in symptoms - failed Emycin - Unable to take Domperidone with cardiac history - Smart Pill x2 - but had diarrhea twice and feels this did not give an adequate result - reports taking antiemetic 2-3x a day alternated between compazine and phenergan ABD US 11/05/2024 Fatty infiltration of the liver. GB WNL - still having a lot of bloating and abdominal pain - abdominal pain with severe nausea - has chronic episodes of nausea w/o pain - emesis 2x a week - reports x-ray showed retained stool and was started on Trulance - pain is a little better but not resolved - she is having a BM almost daily with Trulance, she is having diarrhea, multiple times a day - before Trulance she would go a week or more with a BM - EGD per patient was in 2022 and is not certain what this showed - she has never had a colonoscopy - Skyrizi for psoriasis - denies any family h/o IBD - Diabetes since 14y/o - Marphan Syndrome - cardiology at [facility] - h/o aortic aneurysm, valve repair and replaced part of aortic arch - hypermobile joints, dislocated lenses in eyes and surgically repaired, MVP Recent admission - Episodic intractable nausea and vomiting-secondary to gastroparesis and cannabis hyperemesis syndrome - used to drink alcohol - she is over a year sober and attends - Vapes - Marijuana use - smokes daily since at least 2020 - abdominal pain, primarily left side, improves with hot baths, pain is throbbing and can become sharp - did not improve with capsaicin topical PFSH Medical History Wears glasses Marijuana use Syncope Gastroparesis Electronic cigarette use History of echocardiogram History of stress test Cardiology follow-up encounter Metabolic acidosis Vomiting delivery delivered History of marijuana use Hx of diabetic gastroparesis Diabetes mellitus with hyperglycemia Intractable cyclical vomiting with nausea Depression Compensated metabolic acidosis Dysuria UTI (urinary tract infection) Hypokalemia Type 1 diabetes Metabolic acidosis Leukocytosis DKA, type 1 Intractable abdominal pain Intractable nausea and vomiting Panic disorder Major depressive disorder, recurrent severe without psychotic features Diabetic gastroparesis Substance abuse Kidney stones Kidney disease Smoker Intractable vomiting Type 1 diabetes Marfan syndrome PTSD (post-traumatic stress disorder) Borderline personality disorder Home Medications ?Medication ?Instructions ?Recorded ?Last Taken ?Type pen needle, diabetic 29 gauge x #100 ea 08/10/23 Unkno wn Rx 1/2 (Ultra-Thin II Insulin Pen [place]) risankizumab-rzaa 150 mg/mL 150 mg subcut .[id number] PS ORIASIS 02/07/24 Unknown History subcutaneous pen injector (Skyrizi) Insulin Basal Pump (Pt's Own) 1.8 unit subcut UD diabe edison ##0 06/11/24 Unknown Rx [Pump, Basal] albuterol sulfate 90 mcg/actuation 1 - 2 puff inhalati on Q4H PRN PRN 08/01/24 Unknown Rx aerosol inhaler (Ventolin HFA) Wheezing ##1 doxepin 6 mg tablet 6 mg PO QHS insomnia 5 Unknown History promethazine 25 mg tablet 50 mg PO Q6H PRN nausea and 10/18/24 Unknown History vomiting quetiapine 50 mg tablet,extended 50 mg PO QHS mood Unknown History release 24 hr cholecalciferol (vitamin D3) 1,250 1,250 mcg PO QWEEK 12/14/24 Unknown History mcg (50,000 unit) capsule plecanatide 3 mg tablet (Trulance) 3 mg PO DAILY 12/14 Unknown History haloperidol 5 mg tablet 5 mg PO TID PRN nausea and 0 12/16/24 Unknown Rx vomiting #20 tabs gabapentin 300 mg capsule 600 mg PO BID 01/08/25 Unkno wn History insulin lispro 100 unit/mL See Rx Instructions .Route 01/26/25 Unknown Rx subcutaneous solution (Humalog .COMPLEX #10 mL U-100 Insulin) bisacodyl 5 mg tablet,delayed 5 mg PO ONCE #2 tabs Unknown Rx release (Dulcolax (bisacodyl)) peg 3350-electrolytes 236 240 ml PO Q10M #4,000 mL Unknown Rx gram-22.74 gram-6.74 gram-5.86 gram solution (Golytely) polyethylene glycol 3350 17 17 g PO Q10M #119 grams Unknown Rx gram/dose oral powder (Miralax) simethicone 125 mg chewable tablet 125 mg PO .COMPLEX PRN abdominal 02/11/25 Unknown Rx (Gas-X Extra Strength) distention #6 tabs prochlorperazine maleate 10 mg 10 mg PO TID PRN PRN Unknown History tablet nausea/vomiting Allergy/AdvReac Type Severity Reaction Status Date / Time adhesive tape Allergy Intermediate Rash Verified 03/03/25 14:29 cephalexin (From Keflex) Allergy Intermediate yeast Verified 03/03/25 14:29 infection morphine Allergy Intermediate Rash Verified 03/03/25 14:29 oxycodone (From Percocet) Allergy Intermediate Rash Verified 03/03/25 14:29 ondansetron AdvReac I BLACK Verified 03/03/25 14:29 OUT AND LOSE CONTROL OF MY BLADDER Family History Mother Anxiety and depression Bipolar disorder PCOS (polycystic ovarian syndrome) Father Valvular heart disease Surgical History H/O tubal ligation History of loop recorder Hx of appendectomy Hx of eye surgery H/O aortic root repair Social History household members: spouse Smoking Status: Current every day smoker tobacco type: e-cigarettes Electronic Cigarette Use: with nicotine alcohol intake: never substance use type: marijuana ROS Constitutional Constitutional: Denies fatigue, fever(s), poor appetite, weight gain or weight loss Gastrointestinal Gastrointestinal: Denies belching, bloating, change in bowel habits, change in stool character, chewing difficulty, coffee ground emesis, constipation, cramping, diarrhea, dyspepsia, dysphagia, early satiety, excessive flatus, fecal incontinence, heartburn, hematemesis, hematochezia, hemorrhoids, loose stools, melena, nausea, odynophagia, rectal bleeding, tenesmus, vomiting or weight changes Physical Exam Const alert, oriented x3, no apparent distress and healthy appearing General Appearance: cooperative GI normal to inspection, nondistended, normoactive bowel sounds, soft to palpation, non-tender and non-distended Percussion: normal to percussion Rectal Exam: deferred Assessment & Plan Assessment/Plan (1) Intractable nausea and vomiting: (2) Left sided abdominal pain: (3) Constipation: (4) Steatosis, liver: PLAN: Assessment and Plan Assessment and Plan (1) Nausea and vomiting: (2) Constipation: Status: Acute (3) Diabetic gastroparesis: Status: Acute (4) Steatosis, liver: Status: Acute (5) Left sided abdominal pain: Status: Acute Orders: Orders Abdomen Single View 01/08/25 K59.00 - Constipation, unspecified CBC W/Diff, Automated Today E11.43 - 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 (poly)neuropathy, K31.84 - Gastroparesis, K59.00 - Constipation, unspecified, K76.0 - Fatty (change of) liver, not elsewhere classified, R10.9 - Unspecified abdominal pain, R11.2 - Nausea with vomiting, unspecified Liver Profile Today E11.43 - 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 (poly)neuropathy, K31.84 - Gastroparesis, K59.00 - Constipation, unspecified, K76.0 - Fatty (change of) liver, not elsewhere classified, R10.9 - Unspecified abdominal pain, R11.2 - Nausea with vomiting, unspecified Basic Metabolic Profile (BMP) Today E11.43 - 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 (poly)neuropathy, K31.84 - Gastroparesis, K59.00 - Constipation, unspecified, K76.0 - Fatty (change of) liver, not elsewhere classified, R10.9 - Unspecified abdominal pain, R11.2 - Nausea with vomiting, unspecified Hepatitis A AB, Total Today .43 - 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 (poly)neuropathy, K31.84 - Gastroparesis, K59.00 - Constipation, unspecified, K76.0 - Fatty (change of) liver, not elsewhere classified, R10.9 - Unspecified abdominal pain, R11.2 - Nausea with vomiting, unspecified Hepatitis B Core Ab Total Today 43 - 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 (poly)neuropathy, K31.84 - Gastroparesis, K59.00 - Constipation, unspecified, K76.0 - Fatty (change of) liver, not elsewhere classified, R10.9 - Unspecified abdominal pain, R11.2 - Nausea with vomiting, unspecified Hepatitis B Surface Antibody Today 43 - 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 (poly)neuropathy, K31.84 - Gastroparesis, K59.00 - Constipation, unspecified, K76.0 - Fatty (change of) liver, not elsewhere classified, R10.9 - Unspecified abdominal pain, R11.2 - Nausea with vomiting, unspecified Hepatitis B Surface Antigen Today 43 - 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 (poly)neuropathy, K31.84 - Gastroparesis, K59.00 - Constipation, unspecified, K76.0 - Fatty (change of) liver, not elsewhere classified, R10.9 - Unspecified abdominal pain, R11.2 - Nausea with vomiting, unspecified Hepatitis C Antibody Today .43 - 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 (poly)neuropathy, K31.84 - Gastroparesis, K59.00 - Constipation, unspecified, K76.0 - Fatty (change of) liver, not elsewhere classified, R10.9 - Unspecified abdominal pain, R11.2 - Nausea with vomiting, unspecified Prothrombin Time w/INR Today .43 - 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 (poly)neuropathy, K31.84 - Gastroparesis, K59.00 - Constipation, unspecified, K76.0 - Fatty (change of) liver, not elsewhere classified, R10.9 - Unspecified abdominal pain, R11.2 - Nausea with vomiting, unspecified [facility] Misc. Today .43 - 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 (poly)neuropathy, K31.84 - Gastroparesis, K59.00 - Constipation, unspecified, K76.0 - Fatty (change of) liver, not elsewhere classified, R10.9 - Unspecified abdominal pain, R11.2 - Nausea with vomiting, unspecified Plan 29-year-old female with a complex medical history including Marfan syndrome (complicated by hypermobility, MVP, aortic valve replacement, aortic root repair, and ectopic lentis), type 1 diabetes, psoriasis on Skyrizi, and chronic pain managed with gabapentin. She presents to establish GI care with a history of gastroparesis and severe constipation, previously managed by Dr. Riley at [facility]. She was recently hospitalized for intractable nausea and vomiting, with unremarkable CT imaging. She continues to experience chronic bloating, left- sided abdominal pain (throbbing and intermittently sharp), nausea and emesis approximately twice weekly. Pain improves with hot baths but did not respond to topical capsaicin. Prior prokinetic trials with Reglan and erythromycin failed; she is not a candidate for domperidone due to cardiac history. She uses Compazine and Phenergan as needed, generally taking antiemetics multiple times daily. Of note, she has smoked marijuana daily since 2020, raising concern for cannabinoid hyperemesis syndrome contributing to her symptoms. She also uses tobacco. Constipation has improved with Trulance, with near daily bowel movements now, compared to up to 10-day intervals prior to treatment. Labs notable for significant hyperglycemia (glucose 443), mild thrombocytopenia (PLT 149), and fatty liver on imaging; hemoglobin and transaminases are within normal limits. She has a history of alcohol use disorder but is now sober >1 year and actively engaged in AA. KUB has been ordered today to reassess stool burden. She is scheduled for an EGD and colonoscopy with modified prep to reduce nausea and vomiting risk. Plan includes obtaining prior EGD results if available. She will require repeat labs including CBC and PT/INR, and a FibroScan will be arranged to further evaluate hepatic steatosis in the context of alcohol history and thrombocytopenia. Counseling provided on the importance of glycemic control, minimizing antiemetic overuse, and reducing or discontinuing cannabis use. Tobacco cessation strongly encouraged. Will reassess management following endoscopic evaluation and lab/imaging results. Note: [employer] speech recognition director corporate security software was used to create portions of this document. Sound-alike and misspelled words, as well as other director corporate security errors may be contained in the documentation. Patient Instructions: KUB today EGD and Colon 1.5d bowel prep 1/2d Miralax and 1d GoLytely - I reviewed with patient adjusting timing of bowel prep, start earlier in the day and drink smaller amounts over a longer period of time Continue Trulance Complete labs in 1 month
--- NOTE | 2025-03-05 15:07 | PRE.ANES_ITS ---
ASA Classification* ASA Classification ASA Classification: 3 Assessment & Plan Anesthesia* Anesthesia Assessment Anesthesia Assessment: Discussed sedation and/or anesthesia options, risks, benefits, and alternatives with patient/parents/legal guardian/POA. Questions invited. The patient/parents/legal guardian/POA seems to understand and agrees to proceed with anesthesia plan. Reviewed the physical assessment, medical history, allergy history and patient home medications list prior to surgery/procedure/anesthetic and documented any changes. Performed airway and anesthesia risk assessments. Anesthesia Type Anesthesia Type: MAC History Source History Obtained from:: Patient and Chart Anesthesia Focused Assessment* Temperature: 97.7 F Pulse Rate: 61 Blood Pressure: 90/56 Respiratory Rate: 18 Pulse Ox: 98 Oxygen Delivery Method: Room Air Airway Assessment Mouth opens: >3 cm Mallampati Score: II Teeth Condition: Intact and Caps/Crowns Neck Range of motion (ROM): Full ROM Labs Anesthesia Preop lab: CBC WBC 13.1 K/mm3 (4.4-11.0) H 02/25/25 08:44 5 RBC 4.84 M/mm3 (4.2-5.4) 02/25/25 08:44 02/25/25 Hgb 14.2 g/dL (12.0-15.0) 02/25/25 08:44 02/25/25 Hct 43.5 % (37-47) 02/25/25 08:44 02/25/25 Plt Count 201 K/mm3 (150-450) 02/25/25 08:44 02/25/25 CHEMISTRY Potassium 3.9 mmol/L (3.3-5.1) 02/25/25 08:44 02/25/25 Sodium 138 mmol/L (133-145) 02/25/25 08:44 02/25/25 Magnesium 2.2 mg/dL (1.5-2.2) 02/25/25 08:44 02/25/25 Phosphorus 2.1 mg/dL (2.7-4.5) L 01/25/25 05:08 01/25/25 BUN 12 mg/dL (4-19) 02/25/25 08:44 02/25/25 Creatinine 0.63 mg/dL (0.70-1.20) L 02/25/25 08:44 Glucose 153 mg/dL (70-99) H 02/25/25 08:44 02/25/25 POC Glucose 91 mg/dL (74-106) 03/05/25 14:43 03/05/25 TSH 1.140 uIU/mL (0.300-4.200) 02/03/25 14:43 05/22 COAG PT 11.9 SECONDS (11.7-14.9) 02/03/25 14:43 Urine Test Negative Negative 06/07/24 14:09 06/07/24 Pre-Assessment Diagnosis/Proposed Procedure Planned Operative Procedure(s): Colonoscopy and EGD. 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 When Was Last Pacemaker Check QUESTION #4 FULL TEXT: You/Your Family Experience fever (hyperthermia) with Anesthesia Last Oral Intake Last Oral intake: Last Oral Intake NPO since 20:00 03/05/25 14:55 Meds taken in AM with sips of water? 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 Female Yes 03/03/25 14:33 HX of Motion Sickness No 03/03/25 14:33 HX of N/V After Surgery No 03/03/25 14:33 Non-Smoker No 03/03/25 14:33 Duration of Surgery greater No 03/03/25 14:33 than 60 minutes Number of Risk Factors 1 03/03/25 14:33 PONV Score Low Risk 03/03/25 14:33 Height & Weight Height & Weight: Anesthesia: Height & Weight Height 5 ft 9 in 03/05/25 14:55 Weight: 73.936 kg 03/05/25 14:55 Body Mass Index (BMI) 24.0 03/05/25 14:55 Respiratory Assessment Respiratory Assessment - 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 Has anyone observed you stop No 03/03/25 14:33 breathing during sleep? STOP Results Negative 03/03/25 14:33 QUESTION #5 FULL TEXT : Do you snore loudly (louder than talking or can be heard through closed doors)? 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 Specify any problems Hx of Preganancy in last 3 N/A 03/03/25 14:33 Months Nurse Filling Out Transfusion NBUCHER 03/03/25 14:33 & Questions: Date: 03/03/25 03/03/25 14:33 Time: 14:34 03/03/25 14:33 Patient unable to answer at this time (ie. 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: /Reproductive Hx- cement railroad car loader Hx Now No 03/03/25 14:33 Gestational Age (in weeks): EDC: Hx Hx Para Hx Section SAB No 03/03/25 14:33 Active Medications Active Medications: Current Medications Generic Name Dose Route Start Last Admin Trade Name Freq PRN Reason Stop Dose Admin Lactated Ringer's 1,000 mls @ 15 mls/hr 03/05/25 14:15 IV .Q48H [facility] PFSH Medical History Wears glasses Marijuana use Syncope Gastroparesis Electronic cigarette use History of echocardiogram History of stress test Cardiology follow-up encounter Metabolic acidosis Vomiting delivery delivered History of marijuana use Hx of diabetic gastroparesis Diabetes mellitus with hyperglycemia Intractable cyclical vomiting with nausea Depression Compensated metabolic acidosis Dysuria UTI (urinary tract infection) Hypokalemia Type 1 diabetes Metabolic acidosis Leukocytosis DKA, type 1 Intractable abdominal pain Intractable nausea and vomiting Panic disorder Major depressive disorder, recurrent severe without psychotic features Diabetic gastroparesis Substance abuse Kidney stones Kidney disease Smoker Intractable vomiting Type 1 diabetes Marfan syndrome PTSD (post-traumatic stress disorder) Borderline personality disorder Home Medications ?Medication ?Instructions ?Recorded ?Last Taken ?Type pen needle, diabetic 29 gauge x #100 ea 08/10/23 Unkno wn Rx 1/2 (Ultra-Thin II Insulin Pen [place]) risankizumab-rzaa 150 mg/mL 150 mg subcut .[id number] PS ORIASIS 02/07/24 02/03/25 History subcutaneous pen injector (Skyrizi) Insulin Basal Pump (Pt's Own) 1.8 unit subcut UD diabe edison ##0 06/11/24 03/05/25 Rx [Pump, Basal] albuterol sulfate 90 mcg/actuation 1 - 2 puff inhalati on Q4H PRN PRN 08/01/24 Unknown Rx aerosol inhaler (Ventolin HFA) Wheezing ##1 doxepin 6 mg tablet 6 mg PO QHS insomnia 2 5 03/04/25 History promethazine 25 mg tablet 50 mg PO Q6H PRN nausea and 10/18/24 Unknown History vomiting quetiapine 50 mg tablet,extended 50 mg PO QHS mood 03/04/25 History release 24 hr cholecalciferol (vitamin D3) 1,250 1,250 mcg PO QWEEK 12/14/24 02/26/25 History mcg (50,000 unit) capsule plecanatide 3 mg tablet (Trulance) 3 mg PO DAILY 12/1403/02/25 History haloperidol 5 mg tablet 5 mg PO TID PRN nausea and 0 12/16/24 03/04/25 Rx vomiting #20 tabs gabapentin 300 mg capsule 600 mg PO BID 01/08/2503/04 History insulin lispro 100 unit/mL See Rx Instructions .Route 01/26/25 03/05/25 Rx subcutaneous solution (Humalog .COMPLEX #10 mL U-100 Insulin) bisacodyl 5 mg tablet,delayed 5 mg PO ONCE #2 tabs 03/03/25 Rx release (Dulcolax (bisacodyl)) peg 3350-electrolytes 236 240 ml PO Q10M #4,000 mL 03/04/25 Rx gram-22.74 gram-6.74 gram-5.86 gram solution (Golytely) polyethylene glycol 3350 17 17 g PO Q10M #119 grams 03/04/25 Rx gram/dose oral powder (Miralax) simethicone 125 mg chewable tablet 125 mg PO .COMPLEX PRN abdominal 02/11/25 03/03/25 Rx (Gas-X Extra Strength) distention #6 tabs prochlorperazine maleate 10 mg 10 mg PO TID PRN PRN Unknown History tablet nausea/vomiting Allergy/AdvReac Type Severity Reaction Status Date / Time adhesive tape Allergy Intermediate Rash Verified 03/05/25 14:49 cephalexin (From Keflex) Allergy Intermediate yeast Verified 03/05/25 14:49 infection morphine Allergy Intermediate Rash Verified 03/05/25 14:49 oxycodone (From Percocet) Allergy Intermediate Rash Verified 03/05/25 14:49 ondansetron AdvReac I BLACK Verified 03/05/25 14:49 OUT AND LOSE CONTROL OF MY BLADDER Family History Mother Anxiety and depression Bipolar disorder PCOS (polycystic ovarian syndrome) Father Valvular heart disease Surgical History H/O tubal ligation History of loop recorder Hx of appendectomy Hx of eye surgery H/O aortic root repair Social History household members: spouse Smoking Status: Current every day smoker tobacco type: e-cigarettes Electronic Cigarette Use: with nicotine alcohol intake: never substance use type: marijuana Review of Systems (Anesthesia) ROS Narrative System reviewed and no additional complaints, except as documented.
[2025-03-05] MEDS: Lactated Ringers 1,000 ML 15 ML IV (15:13)
--- NOTE | 2025-03-05 15:15 | EGD_PTH ---
PATIENT: THEODORE VILLA LOC: EN U#:[id number] AGE/SX: 29/F ROOM: RE03/05/[address]: Dr. Truman Gee DO : 1995 BED: DIS: 03/05/2025 SPEC #: [id number] RECD: 03/06/25 08:08 STATUS: DONALD EMMA #: [id number] HANDY: 03/05/25 15:[address]: Truman Gee DEPT: SURGICAL PATHOLOGY RECD BY: Ismael Son ENTERED: 03/06/25 10:38 SP TYPE: EGD BIOPSY OT DR: Jaime Barbour, [facility], MOTOR AND CONTROLS TESTER-C Tissues: A - Duodenum, NOS B - Gastric mucous membrane C - Ileum, NOS D - COLON BIOPSY Procedures: Immunohistochemical Stains Surgery Specimen Level IV HEADER OPERATION: Colonoscopy, EGD PRE-OP DIAGNOSIS: Nausea / vomiting, constipation, diabetic gastroparesis, steatosis, liver, left sided abdominal pain TISSUE SUBMITTED: A- Duodenum biopsy, B- Gastric body biopsy, C- Terminal ileum biopsy, D- Random colon biopsy MICROSCOPIC DIAGNOSIS A. Duodenum, biopsy: - Normal villous architecture with Jeri gland hyperplasia. - Negative for increased intraepithelial lymphocytes. B. Gastric body, biopsy: - Oxyntic mucosa with no specific pathologic change. - IHC negative for H.pylori organisms. C. Terminal ileum, biopsy: - Normal villous architecture. - Prominent mucosal lymphoid tissue, favor reactive. D. Colon, random biopsy: - No specific pathologic change. - The histologic features of microscopic colitis are not demonstrated. MICROSCOPIC DESCRIPTION Slides are reviewed. All matched controls reacted appropriately. These tests were developed and their performance characteristics determined by [facility]. They may not have been cleared or approved by the U.[place]. Food and Drug Administration. The FDA has determined that such clearance or approval is not necessary. The above immunohistochemical/dualISH markers are viewed by the Pathologist. GROSS DESCRIPTION A. Received in fixative is one container labeled with the patient's name and designated Duodenum biopsy. The specimen consists of one irregular fragment of light knight soft tissue that measures 0.6 cm. The specimen is totally submitted in one cassette. B. Received in fixative is one container labeled with the patient's name and designated Gastric body biopsy. The specimen consists of two irregular fragments of light knight soft tissue that in aggregate measure 0.3 and 0.8 cm. The specimen is totally submitted in one cassette. C. Received in fixative is one container labeled with the patient's name and designated Terminal ileum biopsy. The specimen consists of three irregular fragments of light knight soft tissue that in aggregate measure 0.3 and 0.6 cm. The specimen is totally submitted in one cassette. D. Received in fixative is one container labeled with the patient's name and designated Random colon biopsy. The specimen consists of multiple irregular fragments of light knight soft tissue that in aggregate measure 0.3 to 0.8 cm. The specimen is totally submitted in one cassette. Lionel 03/06/2025 CPT:72875g7,98662
--- NOTE | 2025-03-05 16:42 | PCM.POST.ANE ---
Anesthesia: Postop Eval I Current Vital Signs Temperature: 97.2 F Pulse Rate: 84 Blood Pressure: 109/58 Respiratory Rate: 22 Pulse Ox: 100 Oxygen Delivery Method: Room Air Assessment Airway patent: Yes Spontaneous unlabored respirations: Yes Mental status: Awake nausea: No Vomiting: No Anesthesia Complication: No Fluid Hydration Crystalloid volume administer (ml): 700 Total IV fluid infused: 700 Progress Note Anesthesia document: Postop Eval 1 completed: Yes
--- NOTE | 2025-03-05 16:44 | OP.EGD_ITS ---
Patient Name: Kathleen Recinos Procedure Date: 03/05/2025 4:01 PM Date of : 1995 Age: 29 Procedure: Upper GI endoscopy Indications: Epigastric abdominal pain, Functional Dyspepsia Providers: Truman Gee DO Referring MD: Jaime Barbour Clinical Education Manager, Clinical Education Manager-c Medicines: Monitored Anesthesia Care Patient Profile: This is a 29 year old female. Refer to note in patient chart for documentation of history and physical. Patient has symptoms. Complications: No immediate complications. Procedure: Pre-Anesthesia Assessment: - Prior to the procedure, a History and Physical was performed, and patient medications and allergies were reviewed. The patient is competent. The risks and benefits of the procedure and the sedation options and risks were discussed with the patient. All questions were answered and informed consent was obtained. Patient identification and proposed procedure were verified by the physician in the pre-procedure area. Mental Status Examination: alert and oriented. Airway Examination: normal oropharyngeal airway and neck mobility. Respiratory Examination: clear to auscultation. CV Examination: normal. ASA Grade Assessment: II - A patient with mild systemic disease. After reviewing the risks and benefits, the patient was deemed in satisfactory condition to undergo the procedure. The anesthesia plan was to use monitored anesthesia care (MAC). Immediately prior to administration of medications, the patient was re-assessed for adequacy to receive sedatives. The heart rate, respiratory rate, oxygen saturations, blood pressure, adequacy of pulmonary ventilation, and response to care were monitored throughout the procedure. The physical status of the patient was re-assessed after the procedure. After obtaining informed consent, the endoscope was passed under direct vision. Throughout the procedure, the patient's blood pressure, pulse, and oxygen saturations were monitored continuously. The pediatric colonoscope was introduced through the mouth, and advanced to the fourth part of the duodenum. Small bowel enteroscopy was deemed necessary. The upper GI endoscopy was accomplished without difficulty. The patient tolerated the procedure well. Scope In: 4:11:13 PM Scope Out: 4:14:55 PM Total Procedure Duration Time 0 hours 3 minutes 42 seconds Findings: The examined esophagus was normal. Patchy mildly erythematous mucosa without bleeding was found in the gastric body. Biopsies were taken with a cold forceps for Helicobacter pylori testing. Patchy mildly erythematous mucosa without active bleeding and with no stigmata of bleeding was found in the second portion of the duodenum. Biopsies were taken with a cold forceps for histology. Verification of patient identification for the specimen was done. Estimated blood loss was minimal. Impression: - Normal esophagus. - Erythematous mucosa in the gastric body. Biopsied. - Erythematous duodenopathy. Biopsied. Recommendation: - Discharge patient to home. - Resume previous diet. - Continue present medications. - Await pathology results. Procedure Code(s): --- Professional --- 31711, Small intestinal endoscopy, enteroscopy beyond second portion of duodenum, not including ileum; with biopsy, single or multiple CPT copyright 2021 [employer]. All rights reserved. The codes documented in this report are preliminary and upon correspondence representative review may be revised to meet current compliance requirements. Truman Gee DO 03/05/2025 4:43:23 PM This report has been signed electronically. Number of Addenda: 0 Note Initiated On: 03/05/2025 4:01 PM
--- NOTE | 2025-03-05 16:44 | OP.CCLET_ITS ---
03/05/2025 Jaime Barbour Np, Chapoc Re : Upper GI endoscopy procedure for Kathleen Barbour This procedure was performed on Wednesday, March 05, 2025. My impressions and recommendations are as follows: Impressions : - Normal esophagus. - Erythematous mucosa in the gastric body. Biopsied. - Erythematous duodenopathy. Biopsied. Recommendations : - Discharge patient to home. - Resume previous diet. - Continue present medications. - Await pathology results. My findings are described in the full procedure note, which is enclosed. If I can be of further assistance, please feel free to contact me at . Sincerely, Truman Gee DO 03/05/2025 4:43:23 PM This report has been signed electronically.
--- NOTE | 2025-03-05 16:46 | OP.CCLET_ITS ---
03/05/2025 Jaime Barbour Np, Financial Planning Analyst[employer]amc Re : Colonoscopy procedure for Kathleen Barbour This procedure was performed on Wednesday, March 05, 2025. My impressions and recommendations are as follows: Impressions : - Congested mucosa in the recto-sigmoid colon and in the sigmoid colon. Biopsied. - Mild inflammation was found in the ileum secondary to ileitis. Biopsied. Recommendations : - Discharge patient to home. - Resume previous diet. - Continue present medications. - Await pathology results. - Repeat colonoscopy is recommended for surveillance. The colonoscopy date will be determined after pathology results from today's exam become available for review. My findings are described in the full procedure note, which is enclosed. If I can be of further assistance, please feel free to contact me at . Sincerely, Truman Gee, 03/05/2025 4:45:56 PM This report has been signed electronically.
--- NOTE | 2025-03-05 16:46 | OP.COLON_ITS ---
Patient Name: Kathleen Recinos Procedure Date: 03/05/2025 4:15 PM Date of : 1995 Age: 29 Procedure: Colonoscopy Indications: Generalized abdominal pain, Clinically significant diarrhea of unexplained origin Providers: Truman Gee DO Referring MD: Jaime Barbour Engraving Press Operator, Engraving Press Operator-c Medicines: Monitored Anesthesia Care Patient Profile: This is a 29 year old female. Refer to note in patient chart for documentation of history and physical. Patient has symptoms. Last Colonoscopy: none. The patient's first colonoscopy is today. Complications: No immediate complications. Procedure: Pre-Anesthesia Assessment: - Prior to the procedure, a History and Physical was performed, and patient medications and allergies were reviewed. The patient is competent. The risks and benefits of the procedure and the sedation options and risks were discussed with the patient. All questions were answered and informed consent was obtained. Patient identification and proposed procedure were verified by the physician in the pre-procedure area. Mental Status Examination: alert and oriented. Airway Examination: normal oropharyngeal airway and neck mobility. Respiratory Examination: clear to auscultation. CV Examination: normal. ASA Grade Assessment: II - A patient with mild systemic disease. After reviewing the risks and benefits, the patient was deemed in satisfactory condition to undergo the procedure. The anesthesia plan was to use monitored anesthesia care (MAC). Immediately prior to administration of medications, the patient was re-assessed for adequacy to receive sedatives. The heart rate, respiratory rate, oxygen saturations, blood pressure, adequacy of pulmonary ventilation, and response to care were monitored throughout the procedure. The physical status of the patient was re-assessed after the procedure. After I obtained informed consent, the scope was passed under direct vision. Throughout the procedure, the patient's blood pressure, pulse, and oxygen saturations were monitored continuously. The pediatric colonoscope was introduced through the anus and advanced to the terminal ileum. The colonoscopy was performed without difficulty. The patient tolerated the procedure well. The quality of the bowel preparation was adequate. The terminal ileum, ileocecal valve, appendiceal orifice, and rectum were photographed. Scope In: 4:16:57 PM Scope Withdrawal Time 0 hours 9 minutes 7 seconds Scope Out: 4:29:31 PM Total Procedure Duration Time 0 hours 12 minutes 34 seconds Findings: The perianal and digital rectal examinations were normal. Pertinent negatives include normal sphincter tone. An area of mildly congested mucosa was found in the recto-sigmoid colon and in the sigmoid colon. Biopsies were taken with a cold forceps for histology. Verification of patient identification for the specimen was done. Estimated blood loss was minimal. Patchy mild inflammation characterized by congestion (edema) was found in the terminal ileum. Biopsies were taken with a cold forceps for histology. Verification of patient identification for the specimen was done. Estimated blood loss was minimal. Impression: - Congested mucosa in the recto-sigmoid colon and in the sigmoid colon. Biopsied. - Mild inflammation was found in the ileum secondary to ileitis. Biopsied. Recommendation: - Discharge patient to home. - Resume previous diet. - Continue present medications. - Await pathology results. - Repeat colonoscopy is recommended for surveillance. The colonoscopy date will be determined after pathology results from today's exam become available for review. Procedure Code(s): --- Professional --- 66096, Colonoscopy, flexible; with biopsy, single or multiple CPT copyright 2021 [employer]. All rights reserved. The codes documented in this report are preliminary and upon land measurer review may be revised to meet current compliance requirements. Truman Gee DO 03/05/2025 4:45:56 PM This report has been signed electronically. Number of Addenda: 0 Note Initiated On: 03/05/2025 4:15 PM
--- NOTE | 2025-03-05 17:43 | PCM.POSTANE2 ---
Anesthesia Postop Eval I Sum Postop Eval Completion status Anesthesia document: Postop Eval 1 completed: Yes Anesthesia Postop Eval I Summary Anesthesia Postop Eval I Summary: Anesthesia Postop Eval I: Assessment Summary Airway patent Yes 03/05/25 16:43 [email or web address] Spontaneous unlabored Yes 03/05/25 16:43 [email or web address] respirations Mental status Awake 03/05/25 16:43 [email or web address] nausea No 03/05/25 16:43 [email or web address] Vomiting No 03/05/25 16:43 [email or web address] Anesthesia Postop Eval I: Fluid Summary Crystalloid volume administer 700 03/05/25 16:43 [email or web address] (ml) Colloids volume administered ( ml) Blood Product volume administered (ml) Total IV fluid infused 700 03/05/25 16:43 [email or web address] Anesthesia Postop Eval I: Summary Notes Anesthesia Complication No 03/05/25 16:43 [email or web address] Anesthesia Complication Comment: Post-operative progress note Anesthesia: Postop Eval II Evaluation Mental status: Awake and Calm Pain Level: 1 nausea: No Vomiting: No Complications Anesthesia Complication: No
== END 2025-03-05 17:29 | disposition home or self-care (01) ==
LOC: EN 13:55 → AC 13:57
PROVIDERS: Visit Provider Internal Medicine Gastroenterology
PROC: 0DJD8ZZ Inspection of Lower Intestinal Tract, Via Natural or Artificial Opening Endoscopic (ICD-10-PCS; CPT 45378; principal; 2025-03-05 15:10)
DX: R10.84 Generalized abdominal pain (principal); F60.3 Borderline personality disorder; E10.43 Type 1 diabetes mellitus with diabetic autonomic (poly)neuropathy; R11.2 Nausea with vomiting, unspecified; K31.84 Gastroparesis; K76.0 Fatty (change of) liver, not elsewhere classified; K59.00 Constipation, unspecified; Q87.40 Marfan syndrome, unspecified; F17.290 Nicotine dependence, other tobacco product, uncomplicated; L40.9 Psoriasis, unspecified; Z96.41 Presence of insulin pump (external) (internal); Z79.899 Other long term (current) drug therapy
CPT/HCPCS: 45380; 44361; 82962; 88305; 88342; A4216

== ENCOUNTER 2025-03-06 00:47 | Inpatient (IN) | payer MEDICARE, MEDICAID, SELFPAY ==
[2025-03-06] VITALS (27 sets, daily range): BP systolic 95–165; BP diastolic 35–96; PULSE 52–124; RESP 10–31; TEMP 36.6–36.9; O2SAT 94–100; BMI 24.2; BMI 24.0
--- NOTE | 2025-03-06 01:23 | ED.RN ---
pt very anxious and keeps coughing and making herself vomit. having difficulty getting vitals and caring for pt. Pt attempts to cough and vomit while port being accessed. pt keeps jumping out of the bed.
[2025-03-06] MEDS: 0.9% Normal Saline (1000mL) 1,000 ML 999 ML IV ×2 (01:41→03:34)
--- NOTE | 2025-03-06 01:50 | RAD_ITS ---
PROCEDURE: CHEST PA AND LATERAL 03/06/2025 REASON FOR EXAM: CHEST PAIN TECHNIQUE: CHEST PA AND LATERAL COMPARISON: 08/01/2024 FINDINGS: Both lung cazares are clear with no evidence of nodules or infiltrates. No pneumothorax or pleural effusion noted bilaterally. Heart size and its configuration appear to be within normal limits. Both the nelida appear normal. Thoracic rib cage is intact. Sternal sutures noted. Left central venous line is seen ending in mid SVC. RAD/Chest PA and Lateral IMPRESSION: No evidence of acute cardiopulmonary disease. Reading Location: [facility]
[2025-03-06 01:56] LABS: Lipase 21 U/L (13-75)
[2025-03-06 02:09] LABS: Osmolality, Serum 325 mOsm/KG (275-295)
[2025-03-06 02:10] LABS: Hematocrit 41.2 % (37-47); Hemoglobin 12.8 g/dL (12.0-15.0); Immature Granulocytes Count 0.150 X10^3/uL (0.0-0.0); Mean Corp Hgb Conc 31.1 g/dL (32-36); Mean Corpuscular Volume 94.3 fL (81-99); Mean Platelet Vol. 12.8 fl (6.2-12.0); NRBC Flagged by Analyzer 0 % (0-5); POSITIVE COUNT YES; POSITIVE DIFFERENTIAL YES; RBC Distribution Width CV 13.6 % (11.6-14.6); RBC Distribution Width SD 46.8 fl (35.1-43.9); Red Blood Count 4.37 M/mm3 (4.2-5.4); White Blood Count 12.5 K/mm3 (4.4-11.0)
[2025-03-06] MEDS: DiphenhydrAMINE 50 MG/ML Syringe IV (02:11)
[2025-03-06 02:15] LABS: SITE Not entered; Time Given 02:12:53; VBG BASE EXCESS -16 mmol/L (-1.0-3.5); VBG PO2 205 mmHg (25-40); VBG SO2 100 % (50-70); VBG TCO2 7 mmol/L (23-33)
[2025-03-06 02:15] LABS: Differential Indicated SCAN CRITERIA MET
--- NOTE | 2025-03-06 02:24 | ED.RN ---
0200 pt walked to the bathroom and when coming back she c/o feeling dizzy,pt sat on the floor,with assist of another staff member got her back to the bed. Ismael Burr charge nurse made aware and she stated she seen it happen and that she sat down and didn't fall. made aware and will hold pain med for now.
[2025-03-06 02:40] LABS: AST(SGOT) 17 U/L (<=31); Alanine Aminotransfer ALT/SGPT 11 U/L (<=34); Albumin, Serum 4.4 g/dL (3.5-5.0); Alkaline Phosphatase 85 U/L (35-104); Anion Gap 27 (5-15); BUN 16 mg/dL (4-19); BUN/Creat Ratio 18.2 RATIO (10-20); Bilirubin, Direct 0.35 mg/dL (0.00-0.30); Calcium,Total 9.3 mg/dL (7.6-11.0); Carbon Dioxide 11.4 mmol/L (21.0-32.0); Chloride 95 mmol/L (98-108); Estimated Creatinine Clearance 98.81 ml/min (50-250); Globulin 2.5 g/dL (2.2-4.2); Glucose 547 mg/dL (70-99); Potassium 4.4 mmol/L (3.3-5.1)
[2025-03-06 02:45] LABS: Differential Comment SCANNED
[2025-03-06 02:46] LABS: Red Cell Morphology NORM C+C NORMAL (NORM C&C)
[2025-03-06 02:55] LABS: BETA-HYDROXYBUTYRATE 4.2 mmol/L (0.0-0.3)
--- NOTE | 2025-03-06 02:56 | PCM.HP.STD ---
HPI - General General Date of Admission: 03/06/25 Date of Service: 03/06/25 Chief Complaint: Chest/epigastric pain and nausea with vomiting HPI Tracee VILLA, is a 29 F who presented to [facility] ED on 03/06/2025 with chest/epigastric pain and nausea with vomiting. Patient has history of poorly controlled type 1 diabetes mellitus and has been hospitalized frequently for DKA. Has history of chronic abdominal pain with nausea and suspected gastroparesis as well. She had EGD and colonoscopy done with Dr. Gee yesterday. EGD showed erythematous mucosa in the gastric body and duodenum, normal esophagus, otherwise unremarkable. Colonoscopy showed congested mucosa in the rectosigmoid colon and sigmoid colon as well as mild inflammation in the ileum secondary to ileitis. Patient was stable post scopes and was discharged home. She states this morning that her insulin pump seemed to get clogged and she began to have chest/epigastric pain and nausea with vomiting, so she came in for further evaluation. She was hospitalized here in late January for DKA and notably left AMA. In the ED she had sinus tachycardia but was normotensive and stable on room air. Labs notable for glucose 547, beta-hydroxybutyrate 4.2, sodium 133, chloride 95, bicarb 11, anion gap 27. She was given IV fluids and started on insulin drip for DKA. Hospitalist was contacted for admission. I saw the patient at bedside in the ED. Patient had an active episode of vomiting when I saw her. She reported ongoing pain and discomfort despite the multiple IV pain and nausea medications that have been given to her in the ED. Will be admitted for further management. [facility] Medical History Wears glasses Marijuana use Syncope Gastroparesis Electronic cigarette use History of echocardiogram History of stress test Cardiology follow-up encounter Metabolic acidosis Vomiting delivery delivered History of marijuana use Hx of diabetic gastroparesis Diabetes mellitus with hyperglycemia Intractable cyclical vomiting with nausea Depression Compensated metabolic acidosis Dysuria UTI (urinary tract infection) Hypokalemia Type 1 diabetes Metabolic acidosis Leukocytosis DKA, type 1 Intractable abdominal pain Intractable nausea and vomiting Panic disorder Major depressive disorder, recurrent severe without psychotic features Diabetic gastroparesis Substance abuse Kidney stones Kidney disease Smoker Intractable vomiting Type 1 diabetes Marfan syndrome PTSD (post-traumatic stress disorder) Borderline personality disorder Home Medications ?Medication ?Instructions ?Recorded ?Last Taken ?Type pen needle, diabetic 29 gauge x #100 ea 08/10/23 Unknown Rx 1/2 (Ultra-Thin II Insulin Pen [place]) risankizumab-rzaa 150 mg/mL 150 mg subcut .[id number] PSORIASIS 02/07/24 02/03/25 History subcutaneous pen injector (Skyrizi) Insulin Basal Pump (Pt's Own) 1.8 unit subcut UD diabetes ##0 06/11/24 03/05/25 Rx [Pump, Basal] albuterol sulfate 90 mcg/actuation 1 - 2 puff inhalation Q4H PRN PRN 08/01/24 Unknown Rx aerosol inhaler (Ventolin HFA) Wheezing ##1 doxepin 6 mg tablet 6 mg PO QHS insomnia 10/18/24 03/04/25 History promethazine 25 mg tablet 50 mg PO Q6H PRN nausea and 10/18/24 Unknown History vomiting quetiapine 50 mg tablet,extended 50 mg PO QHS mood 10/18/24 03/04/25 History release 24 hr cholecalciferol (vitamin D3) 1,250 1,250 mcg PO QWEEK 12/14/24 02/26/25 History mcg (50,000 unit) capsule plecanatide 3 mg tablet (Trulance) 3 mg PO DAILY 12/14/24 03/02/25 History haloperidol 5 mg tablet 5 mg PO TID PRN nausea and 12/16/24 03/04/25 Rx vomiting #20 tabs gabapentin 300 mg capsule 600 mg PO BID 01/08/25 03/04/25 History insulin lispro 100 unit/mL See Rx Instructions .Route 01/26/25 03/05/25 Rx subcutaneous solution (Humalog .COMPLEX #10 mL U-100 Insulin) prochlorperazine maleate 10 mg 10 mg PO TID PRN PRN 03/03/25 Unknown History tablet nausea/vomiting Allergy/AdvReac Type Severity Reaction Status Date / Time adhesive tape Allergy Intermediate Rash Verified 03/06/25 00:52 cephalexin (From Keflex) Allergy Intermediate yeast Verified 03/06/25 00:52 infection morphine Allergy Intermediate Rash Verified 03/06/25 00:52 oxycodone (From Percocet) Allergy Intermediate Rash Verified 03/06/25 00:52 ondansetron AdvReac I BLACK Verified 03/06/25 00:52 OUT AND LOSE CONTROL OF MY BLADDER Family History Mother Anxiety and depression Bipolar disorder PCOS (polycystic ovarian syndrome) Father Valvular heart disease Surgical History H/O tubal ligation History of loop recorder Hx of appendectomy Hx of eye surgery H/O aortic root repair Social History household members: spouse Smoking Status: Current every day smoker tobacco type: e-cigarettes Electronic Cigarette Use: with nicotine alcohol intake: never substance use type: marijuana ROS Constitutional Constitutional: Reports fatigue; Denies chills, fever(s) or weakness Eyes Eyes: Denies change in vision Cardiovascular Cardiovascular: Reports chest pain; Denies dyspnea on exertion, edema or lightheadedness Respiratory/Chest Respiratory/Chest: Denies shortness of breath at rest Gastrointestinal Gastrointestinal: Reports abdominal pain, dyspepsia, nausea and vomiting; Denies constipation or diarrhea Genitourinary Genitourinary: Denies dysuria Vital Signs Vital Signs Vital Signs: 03/06/25 00:49 03/06/25 02:23 Temperature 98.1 F Temperature Source Oral Pulse Rate 120 H 52 L Respiratory Rate 20 H 16 Blood Pressure 142/67 H 112/43 L Blood Pressure Mean 92 66 Pulse Ox 98 98 Oxygen Delivery Method Room Air Weight Weight: 74.5 kg Body Mass Index (BMI) 24.2 Physical Exam Const alert and oriented x3 Constitutional Narrative: Younger female, fatigued appearing, uncomfortable appearing due to ongoing epigastric pain and nausea with vomiting, otherwise sitting up in bed and answering questions appropriately. General Appearance: cooperative HEENT normocephalic, head/scalp atraumatic, hearing grossly normal bilaterally and nasal mucous membranes and turbinates normal HEENT Narrative: Dry mucous membranes. Eyes PERRL, EOMs intact bilaterally and conjunctivae normal Neck full ROM Chest inspection of chest normal Resp normal respiratory effort, normal air movement, no use of accessory muscles and clear to auscultation bilaterally Cardio no murmurs and peripheral pulses 2+ throughout Cardio Narrative: Tachycardic, regular rhythm. GI GI Narrative: Mildly tender to palpation diffusely but otherwise soft and nondistended. Back/Spine normal ROM Extremity normal to inspection, full ROM and no pedal edema Skin no rashes or lesions noted Psych mental status grossly normal Mood & Affect: anxious Results Lab / Micro Data 03/06/25 02:05 03/06/25 01:10 Labs: Laboratory Results - last 24 hr 03/06/25 01:10: WBC Cancelled, Corrected WBC Cancelled, RBC Cancelled, Hgb Cancelled, Hct Cancelled, MCV Cancelled, MCH Cancelled, MCHC Cancelled, RDW Std Deviation Cancelled, RDW Coeff of Joyce Cancelled, Plt Count Cancelled, MPV Cancelled, Immature Gran % (Auto) Cancelled, Neut % (Auto) Cancelled, Lymph % (Auto) Cancelled, [place] % (Auto) Cancelled, Eos % (Auto) Cancelled, Baso % (Auto) Cancelled, Absolute Neuts (auto) Cancelled, Absolute Lymphs (auto) Cancelled, Total Counted Cancelled, Neutrophils % (Manual) Cancelled, Band Neutrophils % Cancelled, Lymphocytes % (Manual) Cancelled, Monocytes % (Manual) Cancelled, Eosinophils % (Manual) Cancelled, Basophils % (Manual) Cancelled, Metamyelocytes % Cancelled, Myelocytes % Cancelled, Promyelocytes % Cancelled, Blast Cells % Cancelled, Plasma Cell % (Manual) Cancelled, Other Cells % Cancelled, Nucleated RBC % Cancelled, Nucleated RBCs/100 WBC Cancelled, Differential Comment Cancelled, Diff Path Review Cancelled, Hypersegmented Neuts Cancelled, Atypical Lymphocytes Cancelled, Reactive Lymphocytes Cancelled, Smudge Cells Cancelled, Toxic Granulation Cancelled, Toxic Vacuolation Cancelled, Dohle Bodies Cancelled, Lizzy Rods Cancelled, Platelet Estimate Cancelled, Plt Morphology Comment Cancelled, RBC Morphology Cancelled 03/06/25 01:10: RBC Morphology Cancelled, Polychromasia Cancelled, Hypochromasia Cancelled, Basophilic Stippling Cancelled, Anisocytosis Cancelled, Microcytosis Cancelled, Macrocytosis Cancelled, Spherocytes Cancelled, Sickle Cells Cancelled, Target Cells Cancelled, Tear Drop Cells Cancelled, Ovalocytes Cancelled, Stomatocytes Cancelled, [place] Bodies Cancelled, [place] Cells Cancelled, Bite Cells Cancelled, Crenated Cell Cancelled, Acanthocytes (Spur) Cancelled, Rouleaux Cancelled, Schistocytes Cancelled, Sodium 133, Potassium 4.4, Chloride 95 L, Carbon Dioxide 11.4 L, Anion Gap 27 H, BUN 16, Creatinine 0.87, Estim Creat Clear Calc 98.81, Est GFR (MDRD) Non-Af 91, BUN/Creatinine Ratio 18.2, Glucose 547 H*, Serum Osmolality 325 H, Calcium 9.3, Total Bilirubin 0.79, Direct Bilirubin 0.35 H, AST 17, ALT 11, Alkaline Phosphatase 85, Total Protein 6.9, Albumin 4.4, Globulin 2.5, Lipase 21, b-Hydroxybutyric mmol/L Cancelled 03/06/25 01:10: b-Hydroxybutyric mmol/L 4.2 H 03/06/25 02:05: WBC 12.5 H, RBC 4.37, Hgb 12.8, Hct 41.2, MCV 94.3, MCH 29.3, MCHC 31.1 L, RDW Std Deviation 46.8 H, RDW Coeff of Joyce 13.6, Plt Count , MPV 12.8 H, Immature Gran % (Auto) 1.200 H, Neut % (Auto) 93.1 H, Lymph % (Auto) 3.5 L, [place] % (Auto) 1.8, Eos % (Auto) 0.2, Baso % (Auto) 0.2, Absolute Neuts (auto) 11.7 H, Absolute Lymphs (auto) 0.44 L, Nucleated RBC % 0, Differential Comment SCANNED, Platelet Estimate ADEQUATE, Plt Morphology Comment CLUMPED, RBC Morphology NORM C+C ABG Data ABG results: ABG 03/06/25 02:11 Specimen Type ISABELLE Sample Site Not entered VBG pH 7.52 H VBG pO2 205 H VBG HCO3 7 L VBG Total CO2 7 L VBG O2 Sat (Calc) 100 H VBG Base Excess -16 L O2 Delivery Device Room Air Crit Call To/Read Back Yes Blood Gas Notified Whom Andes Blood Gas Notified Time 02:12:53 Imaging Radiology Impression Chest X-Ray 03/06/25 01:50 IMPRESSION: No evidence of acute cardiopulmonary disease. Reading [facility] Assessment & Plan Assessment/Plan (1) Diabetic ketoacidosis: (2) Insulin dependent diabetes mellitus: PLAN: Plan Patient is a 29-year-old female who presented [facility] ED on 03/06/2025 with chest/epigastric pain and nausea with vomiting. 1. Recurrent DKA in setting of poorly controlled type 1 diabetes mellitus with diabetic neuropathy, gastroparesis and cyclical vomiting syndrome ? Admit under inpatient status to ICU. Most recent A1c 10.9%. Has insulin pump and reports that it became clogged leading to this DKA episode. Home insulin pump with 1.8 units/h of long-acting insulin (~42 units daily) and 1:10 carb ratio with meals. Glucose 547, beta-hydroxybutyrate 4.2, sodium 133, chloride 95, bicarb 11, anion gap 27 consistent with DKA. Treat with insulin drip and IV fluids. N.p.o. status. Monitor BMP every 4 hours. 2. Mood disorder ? Continue home Seroquel and doxepin. 3. Psoriasis ? Continue outpatient injections on discharge. DVT prophylaxis: Lovenox CODE STATUS: Full code, verified Expected disposition: Home, TBD Total clinical time spent by myself addressing the patient's medical issues, reviewing all the data, and collaborating with patient's care team: 55 minutes. Charges/Coding Visit Charges Inpatient E&M: 28587 Init Hosp L2
--- NOTE | 2025-03-06 02:59 | EDS_ITS ---
HPI History of Present Illness Chief Complaint: Chest Pain Informant: patient Narrative Narrative: Patient is a type I diabetic on insulin pump with history of gastroparesis. She states she had an EGD and colonoscopy today. She states that she was doing well following the procedures but this evening began with chest discomfort followed by bouts of nausea and vomiting. She states she cannot keep anything down and her sugars are just running high and with concern for development of DKA once again she presents for evaluation [facility] Medical History Wears glasses Marijuana use Syncope Gastroparesis Electronic cigarette use History of echocardiogram History of stress test Cardiology follow-up encounter Metabolic acidosis Vomiting delivery delivered History of marijuana use Hx of diabetic gastroparesis Diabetes mellitus with hyperglycemia Intractable cyclical vomiting with nausea Depression Compensated metabolic acidosis Dysuria UTI (urinary tract infection) Hypokalemia Type 1 diabetes Metabolic acidosis Leukocytosis DKA, type 1 Intractable abdominal pain Intractable nausea and vomiting Panic disorder Major depressive disorder, recurrent severe without psychotic features Diabetic gastroparesis Substance abuse Kidney stones Kidney disease Smoker Intractable vomiting Type 1 diabetes Marfan syndrome PTSD (post-traumatic stress disorder) Borderline personality disorder Home Medications ?Medication ?Instructions ?Recorded ?Last Taken ?Type pen needle, diabetic 29 gauge x #100 ea 08/10/23 Unkno wn Rx 1/2 (Ultra-Thin II Insulin Pen [place]) risankizumab-rzaa 150 mg/mL 150 mg subcut .[id number] ORIASIS 02/07/24 02/03/25 History subcutaneous pen injector (Skyrizi) Insulin Basal Pump (Pt's Own) 1.8 unit subcut UD diabe edison ##0 06/11/24 03/05/25 Rx [Pump, Basal] albuterol sulfate 90 mcg/actuation 1 - 2 puff inhalati on Q4H PRN PRN 08/01/24 Unknown Rx aerosol inhaler (Ventolin HFA) Wheezing ##1 doxepin 6 mg tablet 6 mg PO QHS insomnia 2 5 03/04/25 History promethazine 25 mg tablet 50 mg PO Q6H PRN nausea and 10/18/24 Unknown History vomiting quetiapine 50 mg tablet,extended 50 mg PO QHS mood 03/04/25 History release 24 hr cholecalciferol (vitamin D3) 1,250 1,250 mcg PO QWEEK 12/14/24 02/26/25 History mcg (50,000 unit) capsule plecanatide 3 mg tablet (Trulance) 3 mg PO DAILY 12/1403/02/25 History haloperidol 5 mg tablet 5 mg PO TID PRN nausea and 0 12/16/24 03/04/25 Rx vomiting #20 tabs gabapentin 300 mg capsule 600 mg PO BID 01/08/2503/04 History insulin lispro 100 unit/mL See Rx Instructions .Route 01/26/25 03/05/25 Rx subcutaneous solution (Humalog .COMPLEX #10 mL U-100 Insulin) prochlorperazine maleate 10 mg 10 mg PO TID PRN PRN Unknown History tablet nausea/vomiting Allergy/AdvReac Type Severity Reaction Status Date / Time adhesive tape Allergy Intermediate Rash Verified 03/06/25 00:52 cephalexin (From Keflex) Allergy Intermediate yeast Verified 03/06/25 00:52 infection morphine Allergy Intermediate Rash Verified 03/06/25 00:52 oxycodone (From Percocet) Allergy Intermediate Rash Verified 03/06/25 00:52 ondansetron AdvReac I BLACK Verified 03/06/25 00:52 OUT AND LOSE CONTROL OF MY BLADDER Family History Mother Anxiety and depression Bipolar disorder PCOS (polycystic ovarian syndrome) Father Valvular heart disease Surgical History H/O tubal ligation History of loop recorder Hx of appendectomy Hx of eye surgery H/O aortic root repair Social History household members: spouse Smoking Status: Current every day smoker tobacco type: e-cigarettes Electronic Cigarette Use: with nicotine alcohol intake: never substance use type: marijuana ROS ROS ED Constitutional Constitutional ED: Denies chills or fever(s) ENT ENT ED: Denies sore throat Cardiovascular Cardiovascular: Reports chest pain Respiratory/Chest Respiratory/Chest: Reports cough; Denies dyspnea Gastrointestinal Gastrointestinal: Reports abdominal pain, nausea and vomiting; Denies diarrhea Genitourinary Genitourinary ED: Denies dysuria Musculoskeletal Musculoskeletal: Reports myalgias Integumentary Denies rash Neurologic Neurologic: Denies headache(s) Psychiatric Psychiatric: Reports anxiety Hematologic/Lymphatic Hematologic/Lymphatic: Denies easy bleeding or easy bruising EXAM Physical Exam Const Vital Signs: 03/06/25 00:49 03/06/25 02:23 Temperature 98.1 F Temperature Source Oral Pulse Rate 120 H 52 L Respiratory Rate 20 H 16 Blood Pressure 142/67 H 112/43 L Blood Pressure Mean 92 66 Pulse Ox 98 98 Oxygen Delivery Method Room Air Positive well nourished and well developed General Appearance ED: well developed HEENT HEENT Narrative: Normocephalic atraumatic No tongue or lip swelling no oral lesions no airway edema or compromise Eyes PERRL and EOMs intact bilaterally General Eye ED: Negative for scleral icterus Neck supple Neck Narrative: No nuchal rigidity or meningeal signs No subcutaneous emphysema of the anterior neck palpated Chest Wall palpation of chest normal Chest Narrative: No bony deformity or crepitance noted Resp clear to auscultation bilaterally Resp Narrative: Patient is hyperventilating and breath sounds are diminished but overall clear to auscultation Cardio regular rhythm Rate: tachycardic GI non-tender, non-distended and no masses GI Narrative: Abdomen is soft and nontender and nondistended with hyperactive bowel sounds. No voluntary guarding or rigidity or pulsatile mass Auscultation: hyperactive bowel sounds Palpation: soft Extremity normal to inspection Extremity Narrative: No asymmetric edema no pitting edema negative Homans' sign bilaterally Neuro oriented x3, CN's II-XII intact bilaterally and no sensory deficits noted Sensorium / Orientation: alert Motor Exam: strength 5/5 throughout Psych Mood & Affect: anxious Skin no rashes or lesions noted General Skin Exam: Negative for jaundice MDM MDM MDM Narrative Medical decision making narrative: Patient arrived to the ER hypertensive and tachycardic. She reported chest discomfort with bouts of nausea and vomiting status post EGD and colonoscopy. She also reports her blood sugars are reading high. She does have a past medical history of DKA and based on her insulin-dependent diabetes and symptoms there is high likelihood for this once again. In order to ensure that there is not a esophageal perforation from the recent EGD a chest x-ray was obtained. X- ray revealed no acute lung pathology. Lab work was most consistent with DKA as her anion gap is elevated her bicarb is low her serum acetone is elevated and her blood sugar is increased as well. She was given 2 L of IV fluid secondary to this and then started on an insulin drip. At this time based on the DKA and need for insulin drip and close monitoring of her vitals and labs the hospitalist was contacted and he agrees to accept the patient for further care. Based on her need for close monitoring she will be placed in the ICU for continued treatment. History & Record Review Discussion w/independent historian: Patient Lab Data Labs: Laboratory Results - last 24 hr 03/06/25 03/06/25 03/06/25 01:10 01:10 01:10 WBC Cancelled Corrected WBC Cancelled RBC Cancelled Hgb Cancelled Hct Cancelled MCV Cancelled MCH Cancelled MCHC Cancelled RDW Std Deviation Cancelled RDW Coeff of Joyce Cancelled Plt Count Cancelled MPV Cancelled Immature Gran % (Auto) Cancelled Neut % (Auto) Cancelled Lymph % (Auto) Cancelled [place] % (Auto) Cancelled Eos % (Auto) Cancelled Baso % (Auto) Cancelled Absolute Neuts (auto) Cancelled Absolute Lymphs (auto) Cancelled Total Counted Cancelled Neutrophils % (Manual) Cancelled Band Neutrophils % Cancelled Lymphocytes % (Manual) Cancelled Monocytes % (Manual) Cancelled Eosinophils % (Manual) Cancelled Basophils % (Manual) Cancelled Metamyelocytes % Cancelled Myelocytes % Cancelled Promyelocytes % Cancelled Blast Cells % Cancelled Plasma Cell % (Manual) Cancelled Other Cells % Cancelled Nucleated RBC % Cancelled Nucleated RBCs/100 WBC Cancelled Differential Comment Cancelled Diff Path Review Cancelled Hypersegmented Neuts Cancelled Atypical Lymphocytes Cancelled Reactive Lymphocytes Cancelled Smudge Cells Cancelled Toxic Granulation Cancelled Toxic Vacuolation Cancelled Dohle Bodies Cancelled Lizzy Rods Cancelled Platelet Estimate Cancelled Plt Morphology Comment Cancelled RBC Morphology Cancelled Cancelled Polychromasia Cancelled Hypochromasia Cancelled Basophilic Stippling Cancelled Anisocytosis Cancelled Microcytosis Cancelled Macrocytosis Cancelled Spherocytes Cancelled Sickle Cells Cancelled Target Cells Cancelled Tear Drop Cells Cancelled Ovalocytes Cancelled Stomatocytes Cancelled [place] Bodies Cancelled [place] Cells Cancelled Bite Cells Cancelled Crenated Cell Cancelled Acanthocytes (Spur) Cancelled Rouleaux Cancelled Schistocytes Cancelled Sodium 133 Potassium 4.4 Chloride 95 L Carbon Dioxide 11.4 L Anion Gap 27 H BUN 16 Creatinine 0.87 Estim Creat Clear Calc 98.81 Est GFR (MDRD) Non-Af 91 BUN/Creatinine Ratio 18.2 Glucose 547 H* Serum Osmolality 325 H Calcium 9.3 Total Bilirubin 0.79 Direct Bilirubin 0.35 H AST 17 ALT 11 Alkaline Phosphatase 85 Total Protein 6.9 Albumin 4.4 Globulin 2.5 Lipase 21 b-Hydroxybutyric mmol/L Cancelled 4.2 H 03/06/25 02:05 WBC 12.5 H Corrected WBC RBC 4.37 Hgb 12.8 Hct 41.2 MCV 94.3 MCH 29.3 MCHC 31.1 L RDW Std Deviation 46.8 H RDW Coeff of Joyce 13.6 Plt Count MPV 12.8 H Immature Gran % (Auto) 1.200 H Neut % (Auto) 93.1 H Lymph % (Auto) 3.5 L [place] % (Auto) 1.8 Eos % (Auto) 0.2 Baso % (Auto) 0.2 Absolute Neuts (auto) 11.7 H Absolute Lymphs (auto) 0.44 L Total Counted Neutrophils % (Manual) Band Neutrophils % Lymphocytes % (Manual) Monocytes % (Manual) Eosinophils % (Manual) Basophils % (Manual) Metamyelocytes % Myelocytes % Promyelocytes % Blast Cells % Plasma Cell % (Manual) Other Cells % Nucleated RBC % 0 Nucleated RBCs/100 WBC Differential Comment SCANNED Diff Path Review Hypersegmented Neuts Atypical Lymphocytes Reactive Lymphocytes Smudge Cells Toxic Granulation Toxic Vacuolation Dohle Bodies Lizzy Rods Platelet Estimate ADEQUATE Plt Morphology Comment CLUMPED RBC Morphology NORM C+C Polychromasia Hypochromasia Basophilic Stippling Anisocytosis Microcytosis Macrocytosis Spherocytes Sickle Cells Target Cells Tear Drop Cells Ovalocytes Stomatocytes [place] Bodies [place] Cells Bite Cells Crenated Cell Acanthocytes (Spur) Rouleaux Schistocytes Sodium Potassium Chloride Carbon Dioxide Anion Gap BUN Creatinine Estim Creat Clear Calc Est GFR (MDRD) Non-Af BUN/Creatinine Ratio Glucose Serum Osmolality Calcium Total Bilirubin Direct Bilirubin AST ALT Alkaline Phosphatase Total Protein Albumin Globulin Lipase b-Hydroxybutyric mmol/L ABG Data ABG results: ABG 03/06/25 02:11 Specimen Type ISABELLE Sample Site Not entered VBG pH 7.52 H VBG pO2 205 H VBG HCO3 7 L VBG Total CO2 7 L VBG O2 Sat (Calc) 100 H VBG Base Excess -16 L O2 Delivery Device Room Air Crit Call To/Read Back Yes Blood Gas Notified Whom Andes Blood Gas Notified Time 02:12:53 Radiography Diagnostic Testing: Clinical Impression(s) from Imaging Studies Chest X-Ray 03/06/25 01:50 IMPRESSION: No evidence of acute cardiopulmonary disease. Reading Location: [place] [id number] Chest x-ray as interpreted by the emergency medicine physician reveals no acute infiltrate pneumothorax pleural effusion or free air Management Discussion w/another healthcare provider: Hospitalist Discharge Plan Dx/Rx/DC Orders Clinical Impression: Diabetic ketoacidosis, Intractable nausea and vomiting, Insulin dependent diabetes mellitus, Diabetic gastroparesis Disposition Disposition: [facility]
[2025-03-06] MEDS: Insulin Lispro 100 UNIT in 0.9% Normal Saline (100mL Bag) 99 ML 7.5 UNIT CONT INF (03:28)
--- NOTE | 2025-03-06 04:01 | ED.RN ---
0330 pt continues to cough and making herself vomit.. Pt remains restless and difficult to attach her to the monitor,bp and pulse ox because she keeps sitting up or laying on her side.
[2025-03-06] MEDS: 0.9% Saline Lock 10 ML Syringe IV ×2 (04:20→10:02)
[2025-03-06] MEDS: Lactated Ringers 1,000 ML 150 ML IV (04:47)
[2025-03-06] MEDS: proMETHazine 25 MG/ML Syringe IM (04:47)
--- NOTE | 2025-03-06 05:23 | NURSING ---
Pt called out to use the restroom, this RN helped patient to bathroom and stood in the room. Noticed sink was running and saw pt drinking water out of sink. This RN educated patient on the importance of staying NPO to ensure she doesn't continue to be nauseous and vomit.
[2025-03-06 07:33] LABS: Anion Gap 22 (5-15); BUN 15 mg/dL (4-19); BUN/Creat Ratio 17.5 RATIO (10-20); Calcium,Total 8.8 mg/dL (7.6-11.0); Carbon Dioxide 11.6 mmol/L (21.0-32.0); Chloride 102 mmol/L (98-108); Estimated Creatinine Clearance 101.14 ml/min (50-250); Glucose 317 mg/dL (70-99); Potassium 4.6 mmol/L (3.3-5.1)
[2025-03-06] MEDS: Dext 5%-0.45% NS 1,000 ML 150 ML IV ×3 (09:17→22:42)
[2025-03-06 10:55] LABS: Anion Gap 18 (5-15); BUN 11 mg/dL (4-19); BUN/Creat Ratio 15.9 RATIO (10-20); Calcium,Total 8.3 mg/dL (7.6-11.0); Carbon Dioxide 13.0 mmol/L (21.0-32.0); Chloride 105 mmol/L (98-108); Estimated Creatinine Clearance 121.08 ml/min (50-250); Glucose 220 mg/dL (70-99); Potassium 4.3 mmol/L (3.3-5.1)
--- NOTE | 2025-03-06 12:18 | CASEMGMT ---
STIVEN SMILEY Readmission Chart Review Index: 02/18-. Dx: DKA, Intractable N/V Current: 03/06/25. Dx: DKA From the index admission, the patient left [facility] AMA due to being unable to fill the patient?s insulin pump. Patient was discharged home with her significant other and daughter. Per chart review, the patient followed up with Dr. Gee on 03/05 and had an EGD completed. Patient was then discharged home. Patient re-presents to [facility] ER with chest pain, abdominal pain, nausea, and vomiting. The patient was admitted to the ICU for DKA. STIVEN SMILEY to the patient room at this time. The patient states that she was manually checking her blood sugar levels every two hours. The patient states that her insulin pump gets clogged at times. Patient states that she sometimes injects insulin shots. The patient states that she does not have any sensors for her continuous blood glucose monitor. However, the patient states that she utilizes her manual blood glucose monitor to check her blood sugar levels often. The patient states that she has a sufficient amount of lancets, test strips, and alcohol swabs. Patient denies any questions or concerns regarding care for her diabetes. The patient states that she was unable to follow up with endocrinology as the appointment isn't scheduled until the end of February. Patient states that she did not follow up with her PCP. Patient reports that she is still active with [facility]. Per chart review, the patient?s case aide is Leandra Sanchez. Patient is active with a plant control aide every Monday, Monday, , Monday, and also has home-delivered meals. Noted that the patient has used marijuana daily since 2020 and vapes daily. This building manager inquired if the patient was interested in cessation resources. Patient declines at this time. Moving forward, the patient states that she plans to return home with her significant other and daughter and feel safe doing so. Patient denies any further resources or needs at this time. Sinai ARIAS RN, CM
--- NOTE | 2025-03-06 12:22 | PCM.PN.HOSP ---
Reason for Visit Reason for Visit: Diagnoses Type 2 diabetes mellitus with ketoacidosis without coma (03/06/25) Subjective Subjective Still very nauseated. Objective Data Objective Data Vital Signs: Vital Signs Temp Pulse Resp BP Pulse Ox O2 Del Method 36.6 C 72 26 H 130/54 H 98 Room Air 03/06/25 09:00 03/06/25 11:00 03/06/25 10:00 03/06/25 10:00 03/06/25 11:33 03/06/25 11:33 Oxygen Delivery Method Room Air Weight: 74.026 kg Body Mass Index (BMI) 24.0 Intake & Output: Intake and Output for Last 24 Hours 03/04/25 03/05/25 03/06/25 23:59 23:59 23:59 Intake Total 2659.93 / 2659.93 Output Total 700 / 700 Balance 1959.93 / 1959.93 Lab / Micro Data 03/06/25 02:05 03/06/25 10:00 Labs: Laboratory Results - last 24 hr 03/06/25 01:10: WBC Cancelled, Corrected WBC Cancelled, RBC Cancelled, Hgb Cancelled, Hct Cancelled, MCV Cancelled, MCH Cancelled, MCHC Cancelled, RDW Std Deviation Cancelled, RDW Coeff of Joyce Cancelled, Plt Count Cancelled, MPV Cancelled, Immature Gran % (Auto) Cancelled, Neut % (Auto) Cancelled, Lymph % (Auto) Cancelled, Payette % (Auto) Cancelled, Eos % (Auto) Cancelled, Baso % (Auto) Cancelled, Absolute Neuts (auto) Cancelled, Absolute Lymphs (auto) Cancelled, Total Counted Cancelled, Neutrophils % (Manual) Cancelled, Band Neutrophils % Cancelled, Lymphocytes % (Manual) Cancelled, Monocytes % (Manual) Cancelled, Eosinophils % (Manual) Cancelled, Basophils % (Manual) Cancelled, Metamyelocytes % Cancelled, Myelocytes % Cancelled, Promyelocytes % Cancelled, Blast Cells % Cancelled, Plasma Cell % (Manual) Cancelled, Other Cells % Cancelled, Nucleated RBC % Cancelled, Nucleated RBCs/100 WBC Cancelled, Differential Comment Cancelled, Diff Path Review Cancelled, Hypersegmented Neuts Cancelled, Atypical Lymphocytes Cancelled, Reactive Lymphocytes Cancelled, Smudge Cells Cancelled, Toxic Granulation Cancelled, Toxic Vacuolation Cancelled, Dohle Bodies Cancelled, Lizzy Rods Cancelled, Platelet Estimate Cancelled, Plt Morphology Comment Cancelled, RBC Morphology Cancelled 03/06/25 01:10: RBC Morphology Cancelled, Polychromasia Cancelled, Hypochromasia Cancelled, Basophilic Stippling Cancelled, Anisocytosis Cancelled, Microcytosis Cancelled, Macrocytosis Cancelled, Spherocytes Cancelled, Sickle Cells Cancelled, Target Cells Cancelled, Tear Drop Cells Cancelled, Ovalocytes Cancelled, Stomatocytes Cancelled, [place] Bodies Cancelled, Titi Cells Cancelled, Bite Cells Cancelled, Crenated Cell Cancelled, Acanthocytes (Spur) Cancelled, Rouleaux Cancelled, Schistocytes Cancelled, Sodium 133, Potassium 4.4, Chloride 95 L, Carbon Dioxide 11.4 L, Anion Gap 27 H, BUN 16, Creatinine 0.87, Estim Creat Clear Calc 98.81, Est GFR (MDRD) Non-Af 91, BUN/Creatinine Ratio 18.2, Glucose 547 H*, Serum Osmolality 325 H, Calcium 9.3, Total Bilirubin 0.79, Direct Bilirubin 0.35 H, AST 17, ALT 11, Alkaline Phosphatase 85, Total Protein 6.9, Albumin 4.4, Globulin 2.5, Lipase 21, b-Hydroxybutyric mmol/L Cancelled 03/06/25 01:10: b-Hydroxybutyric mmol/L 4.2 H 03/06/25 02:05: WBC 12.5 H, RBC 4.37, Hgb 12.8, Hct 41.2, MCV 94.3, MCH 29.3, MCHC 31.1 L, RDW Std Deviation 46.8 H, RDW Coeff of Joyce 13.6, Plt Count , MPV 12.8 H, Immature Gran % (Auto) 1.200 H, Neut % (Auto) 93.1 H, Lymph % (Auto) 3.5 L, [place]ette % (Auto) 1.8, Eos % (Auto) 0.2, Baso % (Auto) 0.2, Absolute Neuts (auto) 11.7 H, Absolute Lymphs (auto) 0.44 L, Nucleated RBC % 0, Differential Comment SCANNED, Platelet Estimate ADEQUATE, Plt Morphology Comment CLUMPED, RBC Morphology NORM C+C 03/06/25 03:56: POC Glucose 480 H* 03/06/25 04:54: POC Glucose 352 H 03/06/25 05:53: POC Glucose 313 H 03/06/25 06:20: Sodium 136, Potassium 4.6, Chloride 102, Carbon Dioxide 11.6 L, Anion Gap 22 H, BUN 15, Creatinine 0.85, Estim Creat Clear Calc 101.14, Est GFR (MDRD) Non-Af 94, BUN/Creatinine Ratio 17.5, Glucose 317 H, Calcium 8.8 03/06/25 07:01: POC Glucose 253 H 03/06/25 08:06: POC Glucose 217 H 03/06/25 10:00: Sodium 136, Potassium 4.3, Chloride 105, Carbon Dioxide 13.0 L, Anion Gap 18 H, BUN 11, Creatinine 0.71, Estim Creat Clear Calc 121.08, Est GFR (MDRD) Non-Af 117, BUN/Creatinine Ratio 15.9, Glucose 220 H, Calcium 8.3 03/06/25 11:15: POC Glucose 247 H ABG Data ABG results: ABG 03/06/25 02:11 Specimen Type ISABELLE Sample Site Not entered VBG pH 7.52 H VBG pO2 205 H VBG HCO3 7 L VBG Total CO2 7 L VBG O2 Sat (Calc) 100 H VBG Base Excess -16 L POC Mix VBG pCO2 Pt Tmp 8.2 L* O2 Delivery Device Room Air Crit Call To/Read Back Yes Blood Gas Notified Whom Andes Blood Gas Notified Time 02:12:53 Radiography Diagnostic Testing: Radiology Impression Chest X-Ray 03/06/25 01:50 IMPRESSION: No evidence of acute cardiopulmonary disease. Reading Location: [place] [id number] Physical Exam Const alert Constitutional Narrative: Uncomfortable. Lying on her right side. Emesis bag from her face but no emesis. HEENT head/scalp atraumatic Resp normal respiratory effort, no retractions, no use of accessory muscles and clear to auscultation bilaterally Cardio regular rate, regular rhythm, S1 normal heart sound and S2 normal heart sound GI normal to inspection, nondistended, normoactive bowel sounds, soft to palpation, non-tender and non-distended Extremity normal to inspection Assessment & Plan Assessment/Plan (1) Diabetic ketoacidosis: PLAN: Anion gap is closing with the insulin infusions. Continue with IV fluids for now. (2) Nausea & vomiting: PLAN: Patient did have an EGD and colonoscopy on the ninth. EGD showed erythematous mucosa of the gastric body and is duodenopathy. Colonoscopy showed congested mucosa of the rectosigmoid colon and in the sigmoid colon. Biopsies to all those areas. Inflammation of the ileum secondary to ileitis that was biopsied. Has reported diabetic gastroparesis PRN prochloperazine PLAN: Plan VTE prophylaxis: LMWH Charges/Coding Visit Charges Inpatient E&M: 52528 Subs Hosp L2
[2025-03-06 15:04] LABS: Anion Gap 15 (5-15); BUN 10 mg/dL (4-19); BUN/Creat Ratio 13.8 RATIO (10-20); Calcium,Total 8.3 mg/dL (7.6-11.0); Carbon Dioxide 16.5 mmol/L (21.0-32.0); Chloride 105 mmol/L (98-108); Estimated Creatinine Clearance 122.81 ml/min (50-250); Glucose 239 mg/dL (70-99); Potassium 4.0 mmol/L (3.3-5.1)
[2025-03-06 19:24] LABS: Anion Gap 12 (5-15); BUN 8 mg/dL (4-19); BUN/Creat Ratio 12.3 RATIO (10-20); Calcium,Total 8.3 mg/dL (7.6-11.0); Carbon Dioxide 18.9 mmol/L (21.0-32.0); Chloride 107 mmol/L (98-108); Estimated Creatinine Clearance 126.42 ml/min (50-250); Glucose 199 mg/dL (70-99); Potassium 3.6 mmol/L (3.3-5.1)
[2025-03-06 20:38] LABS: BETA-HYDROXYBUTYRATE 1.7 mmol/L (0.0-0.3)
[2025-03-07] VITALS (10 sets, daily range): BP systolic 106–133; BP diastolic 56–99; PULSE 53–65; RESP 16–25; TEMP 36.6–36.9; O2SAT 95–98; BMI 24.5
[2025-03-07 00:27] LABS: Anion Gap 10 (5-15); BUN 6 mg/dL (4-19); BUN/Creat Ratio 9.9 RATIO (10-20); Calcium,Total 8.2 mg/dL (7.6-11.0); Carbon Dioxide 20.2 mmol/L (21.0-32.0); Chloride 109 mmol/L (98-108); Estimated Creatinine Clearance 136.46 ml/min (50-250); Glucose 136 mg/dL (70-99); Potassium 3.3 mmol/L (3.3-5.1)
[2025-03-07] MEDS: Insulin Lispro 100 UNIT in 0.9% Normal Saline (100mL Bag) 99 ML CONT INF (00:58)
[2025-03-07] MEDS: Dext 5%-0.45% NS 1,000 ML 150 ML IV (05:04)
[2025-03-07 05:28] LABS: Hematocrit 33.3 % (37-47); Hemoglobin 11.0 g/dL (12.0-15.0); Mean Corp Hgb Conc 33.0 g/dL (32-36); Mean Corpuscular Volume 89.8 fL (81-99); Mean Platelet Vol. 11.4 fl (6.2-12.0); Platelet Count 176 K/mm3 (150-450); RBC Distribution Width CV 13.8 % (11.6-14.6); RBC Distribution Width SD 45.2 fl (35.1-43.9); Red Blood Count 3.71 M/mm3 (4.2-5.4); White Blood Count 15.4 K/mm3 (4.4-11.0)
[2025-03-07 05:32] LABS: Scan Indicated on CBC? Y/N NO
[2025-03-07 05:51] LABS: Anion Gap 8 (5-15); BUN 5 mg/dL (4-19); BUN/Creat Ratio 8.1 RATIO (10-20); Calcium,Total 8.0 mg/dL (7.6-11.0); Carbon Dioxide 21.4 mmol/L (21.0-32.0); Chloride 110 mmol/L (98-108); Estimated Creatinine Clearance 148.22 ml/min (50-250); Glucose 113 mg/dL (70-99); Potassium 3.2 mmol/L (3.3-5.1)
[2025-03-07 06:42] LABS: BETA-HYDROXYBUTYRATE 1.2 mmol/L (0.0-0.3)
[2025-03-07] MEDS: Insulin Glargine-YFGN 100 UNIT/ML Pen 20 UNIT SC ×2 (08:47→23:24)
[2025-03-07] MEDS: proMETHazine 25 MG/ML Syringe IM (10:36)
[2025-03-07] MEDS: 0.9% Saline Lock 10 ML Syringe IV (10:40)
--- NOTE | 2025-03-07 12:54 | PN.HOSP_ITS ---
Reason for Visit Reason for Visit: Diagnoses Type 2 diabetes mellitus with ketoacidosis without coma (03/06/25) Nausea with vomiting, unspecified (03/06/25) Subjective Subjective Still nauseated. Endorses that she uses marijuana frequently at home. She states that she uses a 1 g cartridge for her vape pen and that lasts her about 3 days. She states that her nausea is actually better with being on the marijuana then without. She does not feel that she has any nausea related with her cannabis use. Objective Data Objective Data Vital Signs: Vital Signs Temp Pulse Resp BP Pulse Ox O2 Del Method 36.6 C 59 L 21 H 133/99 H 98 Room Air 03/07/25 08:00 03/07/25 08:00 03/07/25 08:00 03/07/25 08:00 03/07/25 08:00 03/07/25 08:00 Oxygen Delivery Method Room Air Weight: 75.16 kg Body Mass Index (BMI) 24.5 Intake & Output: Intake and Output for Last 24 Hours 03/05/25 03/06/25 03/07/25 23:59 23:59 23:59 Intake Total 4687.03 / 4687.03 1619.35 / 1619.35 Output Total 1050 / 1050 Balance 3637.03 / 3637.03 1619.35 / 1619.35 Lab / Micro Data 03/07/25 05:00 03/07/25 05:00 Labs: Laboratory Results - last 24 hr 03/06/25 09:19: POC Glucose 231 H 03/06/25 10:07: POC Glucose 222 H 03/06/25 13:13: POC Glucose 214 H 03/06/25 14:00: Sodium 136, Potassium 4.0, Chloride 105, Carbon Dioxide 16.5 L, Anion Gap 15, BUN 10, Creatinine 0.70, Estim Creat Clear Calc 122.81, Est GFR (MDRD) Non-Af 119, BUN/Creatinine Ratio 13.8, Glucose 239 H, Calcium 8.3 03/06/25 14:05: POC Glucose 214 H 03/06/25 16:09: POC Glucose 203 H 03/06/25 17:03: POC Glucose 196 H 03/06/25 18:25: Sodium 137, Potassium 3.6, Chloride 107, Carbon Dioxide 18.9 L, Anion Gap 12, BUN 8, Creatinine 0.68 L, Estim Creat Clear Calc 126.42, Est GFR (MDRD) Non-Af 120, BUN/Creatinine Ratio 12.3, Glucose 199 H, Calcium 8.3, b- Hydroxybutyric mmol/L 1.7 H 03/06/25 20:26: POC Glucose 127 H 03/06/25 21:29: POC Glucose 160 H 03/06/25 22:35: POC Glucose 127 H 03/06/25 23:49: POC Glucose 119 H 03/07/25 00:00: Sodium 139, Potassium 3.3, Chloride 109 H, Carbon Dioxide 20.2 L , Anion Gap 10, BUN 6, Creatinine 0.63 L, Estim Creat Clear Calc 136.46, Est GFR (MDRD) Non-Af 122, BUN/Creatinine Ratio 9.9 L, Glucose 136 H, Calcium 8.2 03/07/25 00:38: POC Glucose 129 H 03/07/25 03:03: POC Glucose 94 03/07/25 03:55: POC Glucose 88 03/07/25 05:00: WBC 15.4 H, RBC 3.71 L, Hgb 11.0 L, Hct 33.3 L, MCV 89.8, MCH 29.6, MCHC 33.0 D, RDW Std Deviation 45.2 H, RDW Coeff of Joyce 13.8, Plt Count 176, MPV 11.4, Sodium 139, Potassium 3.2 L, Chloride 110 H, Carbon Dioxide 21.4, Anion Gap 8, BUN 5, Creatinine 0.58 L, Estim Creat Clear Calc 148.22, Est GFR (MDRD) Non-Af 125, BUN/Creatinine Ratio 8.1 L, Glucose 113 H, Calcium 8.0, b- Hydroxybutyric mmol/L 1.2 H 03/07/25 05:02: POC Glucose 106 03/07/25 06:15: POC Glucose 163 H 03/07/25 07:04: POC Glucose 169 H 03/07/25 12:26: POC Glucose 354 H Physical Exam Const alert and no apparent distress HEENT head/scalp atraumatic Resp normal respiratory effort, no retractions, no use of accessory muscles and clear to auscultation bilaterally Cardio regular rate, regular rhythm, S1 normal heart sound and S2 normal heart sound GI normal to inspection, nondistended, normoactive bowel sounds, soft to palpation, non-tender and non-distended Extremity normal to inspection and full ROM Neuro Sensorium / Orientation: awake and alert Assessment & Plan Assessment/Plan (1) Diabetic ketoacidosis: PLAN: Anion gap is closing with the insulin infusions. Continue with IV fluids for now. (2) Nausea & vomiting: PLAN: Patient did have an EGD and colonoscopy on the ninth. EGD showed erythematous mucosa of the gastric body and is duodenopathy. Colonoscopy showed congested mucosa of the rectosigmoid colon and in the sigmoid colon. Biopsies to all those areas. Inflammation of the ileum secondary to ileitis that was biopsied. Has reported diabetic gastroparesis PRN prochloperazine I am concerned that there may be at least some component of cannabinoid hyperemesis syndrome. Patient has diabetic gastroparesis. She does not feel that that is the case. Though I did advise that she should at least cut back because she is, per her description, vaping a lot of marijuana. PLAN: Plan VTE prophylaxis: LMWH Charges/Coding Visit Charges Inpatient E&M: 89920 Subs Hosp L2
[2025-03-07] MEDS: Doxepin Hydrochloride 10 MG Capsule PO (23:02)
[2025-03-08 03:40] VITALS: BP 115/73; PULSE 78; RESP 18; TEMP 36.9; O2SAT 98
--- NOTE | 2025-03-08 07:10 | PCM.PN.HOSP ---
Reason for Visit Reason for Visit: Diagnoses Type 2 diabetes mellitus with ketoacidosis without coma (03/06/25) Nausea with vomiting, unspecified (03/06/25) Subjective Subjective Feeling better. Tolerating diet. Objective Data Objective Data Vital Signs: Vital Signs Temp Pulse Resp BP Pulse Ox O2 Del Method 36.9 C 78 18 115/73 98 Room Air 03/08/25 03:40 03/08/25 03:40 03/08/25 03:40 03/08/25 03:40 03/08/25 03:40 03/08/25 03:40 Oxygen Delivery Method Room Air Weight: 75.16 kg Body Mass Index (BMI) 24.5 Intake & Output: Intake and Output for Last 24 Hours 03/06/25 03/07/25 03/08/25 23:59 23:59 23:59 Intake Total 4687.03 / 4687.03 1619.35 / 1619.35 Output Total 1050 / 1050 Balance 3637.03 / 3637.03 1619.35 / 1619.35 Lab / Micro Data 03/07/25 05:00 03/07/25 05:00 Labs: Laboratory Results - last 24 hr 03/07/25 07:04: POC Glucose 169 H 03/07/25 12:26: POC Glucose 354 H 03/07/25 16:25: POC Glucose 262 H 03/07/25 22:47: POC Glucose 282 H Physical Exam Const alert and no apparent distress Constitutional Narrative: sitting up in bed. Resp normal respiratory effort and no retractions Assessment & Plan Assessment/Plan (1) Diabetic ketoacidosis: PLAN: Resolved. On insulin glargine 30 units twice daily as well as scheduled prandial insulin & scale insulin. DC home. Patient to resume her insulin pump. She said she has sufficient insulin at home and testing supplies. Patient to follow up with endocrinology on 03/26 (2) Nausea & vomiting: PLAN: Patient has reported history of diabetic gastroparesis. This is likely complicated by cannabis use. Patient did have an EGD and colonoscopy on the . EGD showed erythematous mucosa of the gastric body and is duodenopathy. Colonoscopy showed congested mucosa of the rectosigmoid colon and in the sigmoid colon. Biopsies to all those areas. Inflammation of the ileum secondary to ileitis that was biopsied. Has reported diabetic gastroparesis PRN prochloperazine I am concerned that there may be at least some component of cannabinoid hyperemesis syndrome. Patient has diabetic gastroparesis. She does not feel that that is the case. Though I did advise that she should at least cut back because she is, per her description, vaping a lot of marijuana. PLAN: Plan VTE prophylaxis: LMWH
[2025-03-08 09:02] VITALS: BP 127/65; PULSE 64; RESP 16; TEMP 36.6; O2SAT 100
--- NOTE | 2025-03-08 10:02 | DS.PCM_ITS ---
Providers Date of Admission: 03/06/25 Primary Care Physician: SHAWNA Bellamy, DIRECTOR REGULAT[facility] AFFAIRS[facility] Reason For Visit: DKA Diagnosis Discharge Diagnosis (1) Diabetic ketoacidosis: Status: Acute Code(s): E11.10 - Type 2 diabetes mellitus with ketoacidosis without coma Plan: Resolved. On insulin glargine 30 units twice daily as well as scheduled prandial insulin & scale insulin. DC home. Patient to resume her insulin pump. She said she has sufficient insulin at home and testing supplies. Patient to follow up with endocrinology on 03/26 (2) Nausea & vomiting: Status: Resolved Code(s): R11.2 - Nausea with vomiting, unspecified Plan: Patient has reported history of diabetic gastroparesis. This is likely complicated by cannabis use. Patient did have an EGD and colonoscopy on the . EGD showed erythematous mucosa of the gastric body and is duodenopathy. Colonoscopy showed congested mucosa of the rectosigmoid colon and in the sigmoid colon. Biopsies to all those areas. Inflammation of the ileum secondary to ileitis that was biopsied. Has reported diabetic gastroparesis PRN prochloperazine I am concerned that there may be at least some component of cannabinoid hyperemesis syndrome. Patient has diabetic gastroparesis. She does not feel that that is the case. Though I did advise that she should at least cut back because she is, per her description, vaping a lot of marijuana. Plan VTE prophylaxis: LMWH Medications at Discharge Home Medications pen needle, diabetic 29 gauge x 1/2 (Ultra-Thin II Insulin Pen [place]) #100 ea 08/10/23 risankizumab-rzaa 150 mg/mL subcutaneous pen injector (Skyrizi) 150 mg subcut .[id number] PSORIASIS 02/07/24 Insulin Basal Pump (Pt's Own) [Pump, Basal] 1.8 unit subcut UD diabetes ##0 06/11/24 albuterol sulfate 90 mcg/actuation aerosol inhaler (Ventolin HFA) 1 - 2 puff inhalation Q4H PRN PRN Wheezing ##1 08/01/24 doxepin 6 mg tablet 6 mg PO QHS insomnia 10/18/24 promethazine 25 mg tablet 50 mg PO Q6H PRN nausea and vomiting 10/18/24 quetiapine 50 mg tablet,extended release 24 hr 50 mg PO QHS mood 10/18/24 cholecalciferol (vitamin D3) 1,250 mcg (50,000 unit) capsule 1,250 mcg PO QWEEK 12/14/24 plecanatide 3 mg tablet (Trulance) 3 mg PO DAILY 12/14/24 haloperidol 5 mg tablet 5 mg PO TID PRN nausea and vomiting #20 tabs 12/16/24 gabapentin 300 mg capsule 600 mg PO BID 01/08/25 insulin lispro 100 unit/mL subcutaneous solution (Humalog U-100 Insulin) See Rx Instructions .Route .COMPLEX #10 mL 01/26/25 prochlorperazine maleate 10 mg tablet 10 mg PO TID PRN PRN nausea/vomiting 03/03/25 Hospital Course Operations None Procedures None Summary of Care Provided Minutes Spent on Discharge: 32 Hospital Course: Patient presents with DKA. Patient was placed on insulin drip and did have her gap closed on the morning of the . Patient was converted to basal insulin as well as sliding scale. Patient's course complicated by significant nausea and vomiting. Patient has a known history of diabetic gastroparesis but does smoke quite a bit of marijuana. I expressed the patient that I am concerned that she may have at least some component of cannabinoid hyperemesis syndrome and advise cessation or least cutting back. Patient does not feel that the marijuana is actually worsening her nausea vomiting and states that it may actually make it better. I did still continue to advise cessation release cutting back but also advised about the potential risks of vaping as it is unclear if that may have long-term side effects. Patient primarily vaping or marijuana. Patient will be discharged he says she has enough insulin as well as testing supplies at home. She does not have a continuous glucometer at home. Weight / BMI Weight Weight: 75.16 kg Body Mass Index (BMI) 24.5 ABG / Lab / Microbiology Data 03/07/25 05:00 03/07/25 05:00 Laboratory: Laboratory Results - last 24 hr 03/07/25 12:26: POC Glucose 354 H 03/07/25 16:25: POC Glucose 262 H 03/07/25 22:47: POC Glucose 282 H 03/08/25 07:49: POC Glucose 272 H D/C Instructions DC O2, CPAP, BIPAP Needs Home O2 Discharge instructions: No Meaningful Use Info Meaningful Use Meaningful Use Diagnoses (Choose all that apply): None applicable Discharge Plan Admission Admit Date/Time: 03/06/25 02:56 Primary Reason for Your Visit: DKA Attending Provider: Greg Mon Primary Care Provider: Jaime Barbour [facility] Consulting Providers: Dangelo Encarnacion Instructions Additional Instructions / Restrictions: As we discussed I am concerned that there may be some component of cannabinoid hyperemesis syndrome (nausea and vomiting related with marijuana use). I recommend complete cessation of marijuana but at least cutting it back by half what you actually use now. Please follow-up endocrinology. Discharge Orders/Prescriptions Prescriptions: Continued gabapentin 300 mg capsule 600 mg PO BID (DME) pen needle, diabetic [Ultra-Thin II Ins Pen [place]] 29 gauge x 1/2 needle See Rx Instructions .Route Qty: 100 0RF Rx Instructions: As directed Skyrizi 150 mg/mL pen injector 150 mg subcut .[id number] albuterol sulfate [Ventolin HFA] 90 mcg/actuation HFA aerosol inhaler 1 - 2 puff inhalation Q4H PRN PRN (Reason: Wheezing) Qty: 1 0RF cholecalciferol (vitamin D3) 1,250 mcg (50,000 unit) capsule 1,250 mcg PO QWEEK Trulance 3 mg tablet 3 mg PO DAILY haloperidol 5 mg tablet 5 mg PO TID PRN (Reason: nausea and vomiting) Qty: 20 0RF Rx Instructions: Take 1/2-1 3 times a day as needed nausea and vomiting prochlorperazine maleate 10 mg tablet 10 mg PO TID PRN PRN (Reason: nausea/vomiting) insulin lispro [Humalog U-100 Insulin] 100 unit/mL solution See Rx Instructions .ROUTE .COMPLEX Qty: 10 4RF Rx Instructions: 100 U VIA PUMP DAILY; BASAL RATE - 1.8 UNITS/HOUR BOLUS: CARB RATIO- 1 UNIT /10 GRAMS OF CARBS CORRECTION- 1 UNIT FOR EVERY 30MG/DL BLOOD GLUCOSE OVER 120 Insulin Basal Pump (Pt's Own) [Pump, Basal] 1.8 unit subcut UD Qty: 0 0RF promethazine 25 mg tablet 50 mg PO Q6H PRN (Reason: nausea and vomiting) Rx Instructions: one or two every six hours for nausea quetiapine 50 mg tablet extended release 24 hr 50 mg PO QHS doxepin 6 mg tablet 6 mg PO QHS Referrals / Follow Up: [facility] [Provider Group] - 03/19/25 10:30 am [facility] [Provider Group] - 03/26/25 1:45 pm Jaime Barbour, DIRECTOR REGULAT[facility] AFFAIRS[facility] [Primary Care Provider] - Within 2 Weeks Disposition Disposition (needs filled in before D/C Order can be placed): Home, Self Care Charges/Coding Visit Charges Inpatient E&M: 33848 Disch Hosp >30min
[2025-03-08] MEDS: 0.9% Saline Lock 10 ML Syringe IV ×2 (10:46→13:05)
[2025-03-08] MEDS: Insulin Glargine-YFGN 100 UNIT/ML Pen 20 UNIT SC (10:49)
== END 2025-03-08 13:12 | disposition home or self-care (01) | DRG 638 ==
LOC: ED 03:16 → ICU 03:29 → MS3 03-07 12:04
PROVIDERS: Admitting Provider Hospitalist; Emergency Provider Emergency Medicine
DX: E10.10 Type 1 diabetes mellitus with ketoacidosis without coma (principal); T85.694A Other mechanical complication of insulin pump, initial encounter; Q87.40 Marfan syndrome, unspecified; E10.43 Type 1 diabetes mellitus with diabetic autonomic (poly)neuropathy; F60.3 Borderline personality disorder; L40.9 Psoriasis, unspecified; Z79.4 Long term (current) use of insulin; K31.84 Gastroparesis; F17.290 Nicotine dependence, other tobacco product, uncomplicated; R11.2 Nausea with vomiting, unspecified; F12.90 Cannabis use, unspecified, uncomplicated; K52.9 Noninfective gastroenteritis and colitis, unspecified; Z91.199 Patient's noncompliance with other medical treatment and regimen due to unspecified reason; Z96.41 Presence of insulin pump (external) (internal); Y82.8 Other medical devices associated with adverse incidents; Z79.899 Other long term (current) drug therapy
CPT/HCPCS: 36591; 71046; 80048; 80076; 82010; 82803; 82962; 83690; 83930; 85025; 85027; 88305; 88342; 99284; 99406; A4216

== ENCOUNTER 2025-03-17 19:53 | Inpatient (IN) | payer MEDICARE, MEDICAID, SELFPAY ==
[2025-03-17 19:55] VITALS: BP 124/54; PULSE 135; RESP 18; TEMP 35.8; O2SAT 97
[2025-03-17 20:49] LABS: SITE Not entered; Time Given 20:45:58; VBG BASE EXCESS -23 mmol/L (-1.0-3.5); VBG PO2 55 mmHg (25-40); VBG SO2 80 % (50-70); VBG TCO2 7 mmol/L (23-33)
[2025-03-17 20:59] LABS: Hematocrit 42.5 % (37-47); Hemoglobin 14.0 g/dL (12.0-15.0); Immature Granulocytes Count 1.420 X10^3/uL (0.0-0.0); Mean Corp Hgb Conc 32.9 g/dL (32-36); Mean Corpuscular Volume 90.6 fL (81-99); Mean Platelet Vol. 12.7 fl (6.2-12.0); NRBC Flagged by Analyzer 0 % (0-5); POSITIVE COUNT YES; POSITIVE DIFFERENTIAL YES; POSITIVE MORPHOLOGY YES; Platelet Count 188 K/mm3 (150-450); RBC Distribution Width CV 13.2 % (11.6-14.6); RBC Distribution Width SD 42.9 fl (35.1-43.9); Red Blood Count 4.69 M/mm3 (4.2-5.4)
[2025-03-17 21:06] LABS: Differential Indicated SCAN CRITERIA MET; White Blood Count 34.1 K/mm3 (4.4-11.0)
[2025-03-17 21:22] LABS: Lipase 10 U/L (13-75)
--- NOTE | 2025-03-17 21:30 | ED.VIS.GI ---
HPI HPI - GI History of Present Illness Chief Complaint: Nausea/Vomiting Detail of Chief Complaint: Elevated blood sugar. History of DKA frequently. Informant: patient Abdominal Pain/Flank Pain Onset: Today Context: Gradual Onset Quality: Cramping Location: Diffuse Current Severity: Mild Maximum Severity: Mild Worsened by: Nothing Relieved by: Nothing Nausea/Vomiting/Emesis GI Symptom: Positive for Nausea and Vomiting Onset: Today Severity: Moderate Diarrhea/Melena/Hematochezia GI Symptom: Negative for Diarrhea Associated Symptoms Associated Symptoms: Negative for Dysuria, Frequency, Hematuria or Urgency Narrative Narrative: 29-year-old female history of diabetes, gastroparesis and frequent DKA. Recent hospital admission for DKA. States she has had nausea and vomiting today with elevated blood sugars. Abdominal cramping. Unable to keep fluids down. Prior similar symptoms: Yes Recent Illness/Hospitalization: Yes PFSH PFS Medical History Insulin dependent diabetes mellitus Wears glasses Marijuana use Syncope Gastroparesis Electronic cigarette use History of echocardiogram History of stress test Cardiology follow-up encounter Metabolic acidosis Vomiting delivery delivered History of marijuana use Hx of diabetic gastroparesis Diabetes mellitus with hyperglycemia Intractable cyclical vomiting with nausea Depression Compensated metabolic acidosis Dysuria UTI (urinary tract infection) Hypokalemia Type 1 diabetes Metabolic acidosis Leukocytosis DKA, type 1 Intractable abdominal pain Intractable nausea and vomiting Panic disorder Major depressive disorder, recurrent severe without psychotic features Diabetic gastroparesis Substance abuse Kidney stones Kidney disease Smoker Intractable vomiting Type 1 diabetes Marfan syndrome PTSD (post-traumatic stress disorder) Borderline personality disorder Home Medications ?Medication ?Instructions ?Recorded ?Last Taken ?Type pen needle, diabetic 29 gauge x #100 ea 08/10/23 Unknown Rx 1/2 (Ultra-Thin II Insulin Pen [place]) risankizumab-rzaa 150 mg/mL 150 mg subcut .[id number] PSORIASIS 02/07/24 02/03/25 History subcutaneous pen injector (Skyrizi) Insulin Basal Pump (Pt's Own) 1.8 unit subcut UD diabetes ##0 06/11/24 03/05/25 Rx [Pump, Basal] albuterol sulfate 90 mcg/actuation 1 - 2 puff inhalation Q4H PRN PRN 08/01/24 Unknown Rx aerosol inhaler (Ventolin HFA) Wheezing ##1 doxepin 6 mg tablet 6 mg PO QHS insomnia 02/21/25 07/08/25 History promethazine 25 mg tablet 50 mg PO Q6H PRN nausea and 10/18/24 Unknown History vomiting quetiapine 50 mg tablet,extended 50 mg PO QHS mood 10/18/24 03/04/25 History release 24 hr cholecalciferol (vitamin D3) 1,250 1,250 mcg PO QWEEK 12/14/24 02/26/25 History mcg (50,000 unit) capsule plecanatide 3 mg tablet (Trulance) 3 mg PO DAILY 12/14/24 03/02/25 History haloperidol 5 mg tablet 5 mg PO TID PRN nausea and 12/16/24 03/04/25 Rx vomiting #20 tabs gabapentin 300 mg capsule 600 mg PO BID 01/08/25 03/04/25 History insulin lispro 100 unit/mL See Rx Instructions .Route 01/26/25 03/05/25 Rx subcutaneous solution (Humalog .COMPLEX #10 mL U-100 Insulin) prochlorperazine maleate 10 mg 10 mg PO TID PRN PRN 03/03/25 Unknown History tablet nausea/vomiting Allergy/AdvReac Type Severity Reaction Status Date / Time adhesive tape Allergy Intermediate Rash Verified 03/17/25 19:58 cephalexin (From Keflex) Allergy Intermediate yeast Verified 03/17/25 19:58 infection morphine Allergy Intermediate Rash Verified 03/17/25 19:58 oxycodone (From Percocet) Allergy Intermediate Rash Verified 03/17/25 19:58 ondansetron AdvReac I BLACK Verified 03/17/25 19:58 OUT AND LOSE CONTROL OF MY BLADDER Family History Mother Anxiety and depression Bipolar disorder PCOS (polycystic ovarian syndrome) Father Valvular heart disease Surgical History H/O tubal ligation History of loop recorder Hx of appendectomy Hx of eye surgery H/O aortic root repair Social History household members: spouse Smoking Status: Current every day smoker tobacco type: e-cigarettes Electronic Cigarette Use: with nicotine alcohol intake: never substance use type: marijuana ROS ROS ED ROS Narrative Nausea vomiting. Abdominal cramping. Constitutional Constitutional ED: Denies chills or fever(s) ENT ENT ED: Denies ear pain Cardiovascular Cardiovascular: Denies chest pain Respiratory/Chest Respiratory/Chest: Denies cough or dyspnea Gastrointestinal Gastrointestinal: Reports abdominal pain, nausea and vomiting Genitourinary Genitourinary ED: Denies dysuria or hematuria Musculoskeletal Musculoskeletal: Denies arthralgias Integumentary Denies abscess Neurologic Neurologic: Denies headache(s) Psychiatric Psychiatric: Denies anxiety Endocrine Endocrinology: Denies polydipsia Hematologic/Lymphatic Hematologic/Lymphatic: Denies easy bleeding Allergic/Immunologic Allergic/Immunologic ED: Denies mouth swelling EXAM Physical Exam Narrative Exam Narrative: 29-year-old ill appearing female lying in bed vital signs blood pressure 09/20/1954 tachycardic 135. Currently afebrile. Pulse ox 97% on room air no signs hypoxia. Clinically looks ill. H EENT exam pupils are reactive light. Dry mucous membranes. No trauma to her face or scalp. Nontender. Neck nontender. No lymphadenopathy. No meningismus. Back nontender. Lungs clear to auscultation bilaterally. Heart tachycardic 130 no murmur. Chest wall ribs nontender. Abdomen soft nondistended normal bowel sounds without peritoneal signs. No hernia or mass. No distention or obstruction. No localizing tenderness. Moving all 4 extremities. Nontender no edema. No rash or cellulitis. Normal strength. Neurologically she is awake alert. Answer questions following commands. Const Vital Signs: 03/17/25 19:55 03/17/25 21:53 03/17/25 22:21 Temperature 96.4 F L 98.7 F Temperature Source Temporal Oral Pulse Rate 135 H 122 H Respiratory Rate 18 23 H Blood Pressure 124/54 H 108/55 L Blood Pressure Mean 77 72 Pulse Ox 97 98 Oxygen Delivery Method Room Air Room Air 03/17/25 23:00 Temperature Temperature Source Pulse Rate 145 H Respiratory Rate 22 H Blood Pressure 102/77 Blood Pressure Mean 85 Pulse Ox Oxygen Delivery Method Positive well nourished and well developed; Negative for obese, cachectic or contractures General Appearance ED: well developed; Negative for cachectic, contractures, NAD or pallor Nutritional Appearance: Negative for cachectic or obese HEENT Reports dry mucous membranes normocephalic and atraumatic Mouth ED: Yes dry mucous membranes Mouth: dry mucous membranes Eyes PERRL and EOMs intact bilaterally Neck no lymphadenopathy, supple and no JVD Resp normal respiratory effort and clear to auscultation bilaterally Resp Narrative: Increased respiratory rate. Cardio regular rhythm, S1 normal heart sound, S2 normal heart sound and no murmurs; Negative for regular rate Rate: tachycardic GI non-tender, non-distended and no masses Inspection: Negative for abdominal distention Auscultation: normoactive bowel sounds Palpation: soft; Negative for tender, guarding, pulsatile mass or rebound tenderness present Back/Spine no CVA tenderness General Back: Negative for CVA tenderness Cervical Spine: Negative for cervical spine tenderness Thoracic Spine / Upper Back: Negative for thoracic spinal tenderness Lumbar Spine / Lower Back: Negative for lumbar spinal tenderness Extremity full ROM General Extremety ED: Negative for edema or tenderness General Extremity: Negative for edema Neuro CN's II-XII intact bilaterally and moves all extremities Sensorium / Orientation: alert, oriented to person, oriented to place and oriented to time; Negative for orientation impaired or confused Motor Exam: strength 5/5 throughout Psych mental status grossly normal and thought process normal Attitude: No agitated Mood & Affect: Negative for depressed, anxious or tearful Skin no wounds General Skin Exam: Negative for jaundice or pallor Lesions: no lesions Rashes: no rashes MDM MDM MDM Narrative Medical decision making narrative: 29-year-old diabetic female most likely recurrent DKA. IV fluids, Compazine for her nausea and started on insulin drip. Repeat exam patient is doing better at 11:08 PM. She is still ill but she is improving. She has received 2 L of normal saline she will receive a third. Additional Compazine. She is on the insulin drip. Have already spoken to the hospitalist. He is going admitted to the ICU. Repeat exam she is clinically improving there is no other significant change. Her abdomen is benign. History & Record Review Discussion w/independent historian: Patient Additional record(s) reviewed:: Prior inpatient record, Prior outpatient record, Prior ED visit and Prior labs Lab Data Attestation: I reviewed the patient's lab results. Lab results narrative: CBC shows a white getter 34.1 H&H of 14 and 42. Platelets 188. She often has elevated white counts. VBG showed a pH of 7.151, TCW035 and pO2 55 again this is a venous blood gas Electrolytes show sodium 128. Potassium of 5.4. CO2 is 6. Anion gap 37. BUN/creatinine is 17/1.1. Glucose 561. Liver enzymes negative. Serum test negative. Chest x-ray negative. Labs: Laboratory Results - last 24 hr 03/17/25 03/17/25 03/17/25 20:40 20:40 20:40 WBC 34.1 H* RBC 4.69 Hgb 14.0 Hct 42.5 MCV 90.6 MCH 29.9 MCHC 32.9 RDW Std Deviation 42.9 RDW Coeff of Joyce 13.2 Plt Count 188 MPV 12.7 H Immature Gran % (Auto) 4.200 H Neut % (Auto) 90.2 H Lymph % (Auto) 2.8 L [place] % (Auto) 2.7 Eos % (Auto) 0.0 Baso % (Auto) 0.1 Absolute Neuts (auto) 30.8 H Absolute Lymphs (auto) 0.94 Nucleated RBC % 0 Differential Comment SCANNED Diff Path Review May foll Platelet Estimate ADEQUATE Sodium 128 L Cancelled Potassium 5.4 H Cancelled Chloride 84 L Carbon Dioxide Anion Gap BUN Creatinine Estim Creat Clear Calc Est GFR (MDRD) Non-Af BUN/Creatinine Ratio Glucose Calcium Total Bilirubin AST ALT Alkaline Phosphatase Total Protein Albumin Globulin Albumin/Globulin Ratio Lipase b-Hydroxybutyric mmol/L Serum , Qual 03/17/25 03/17/25 03/17/25 20:40 20:40 20:40 WBC RBC Hgb Hct MCV MCH MCHC RDW Std Deviation RDW Coeff of Joyce Plt Count MPV Immature Gran % (Auto) Neut % (Auto) Lymph % (Auto) [place] % (Auto) Eos % (Auto) Baso % (Auto) Absolute Neuts (auto) Absolute Lymphs (auto) Nucleated RBC % Differential Comment Diff Path Review Platelet Estimate Sodium Potassium Chloride Cancelled Carbon Dioxide 6.0 L* Cancelled Anion Gap 37 H Cancelled BUN 17 Creatinine Estim Creat Clear Calc Est GFR (MDRD) Non-Af BUN/Creatinine Ratio Glucose Calcium Total Bilirubin AST ALT Alkaline Phosphatase Total Protein Albumin Globulin Albumin/Globulin Ratio Lipase b-Hydroxybutyric mmol/L Serum , Qual 03/17/25 03/17/25 03/17/25 20:40 20:40 20:40 WBC RBC Hgb Hct MCV MCH MCHC RDW Std Deviation RDW Coeff of Joyce Plt Count MPV Immature Gran % (Auto) Neut % (Auto) Lymph % (Auto) [place] % (Auto) Eos % (Auto) Baso % (Auto) Absolute Neuts (auto) Absolute Lymphs (auto) Nucleated RBC % Differential Comment Diff Path Review Platelet Estimate Sodium Potassium Chloride Carbon Dioxide Anion Gap BUN Cancelled Creatinine 1.18 Cancelled Estim Creat Clear Calc 72.85 Est GFR (MDRD) Non-Af 64 Cancelled BUN/Creatinine Ratio 14.1 Glucose Calcium Total Bilirubin AST ALT Alkaline Phosphatase Total Protein Albumin Globulin Albumin/Globulin Ratio Lipase b-Hydroxybutyric mmol/L Serum , Qual 03/17/25 03/17/25 03/17/25 20:40 20:40 20:40 WBC RBC Hgb Hct MCV MCH MCHC RDW Std Deviation RDW Coeff of Joyce Plt Count MPV Immature Gran % (Auto) Neut % (Auto) Lymph % (Auto) [place] % (Auto) Eos % (Auto) Baso % (Auto) Absolute Neuts (auto) Absolute Lymphs (auto) Nucleated RBC % Differential Comment Diff Path Review Platelet Estimate Sodium Potassium Chloride Carbon Dioxide Anion Gap BUN Creatinine Estim Creat Clear Calc Est GFR (MDRD) Non-Af BUN/Creatinine Ratio Cancelled Glucose 561 H* Cancelled Calcium 9.7 Cancelled Total Bilirubin 0.74 AST 18 ALT 18 Alkaline Phosphatase 123 H Total Protein 7.6 Albumin 5.0 Globulin 2.7 Albumin/Globulin Ratio 1.9 Lipase 10 L b-Hydroxybutyric mmol/L 9.3 H Serum , Qual NEGATIVE ABG Data ABG results: ABG 03/17/25 20:44 Specimen Type ISABELLE Sample Site Not entered VBG pH 7.15 L* VBG pO2 55 H VBG HCO3 6 L VBG Total CO2 7 L VBG O2 Sat (Calc) 80 H VBG Base Excess -23 L POC Mix VBG pCO2 Pt Tmp 17.3 L* O2 Delivery Device Room Air Crit Call To/Read Back Yes Blood Gas Notified Whom Garces Blood Gas Notified Time 20:45:58 Radiography Chest X-Ray - ED: 1 View, Read by ED Physician, Read by Radiologist, Normal, Heart, Lungs, Mediastinum, Bony Structures, No Acute Disease and Chronic Changes Diagnostic Testing: Clinical Impression(s) from Imaging Studies Chest X-Ray 03/17/25 21:42 IMPRESSION: Mild pulmonary vascular congestion. No focal consolidations. Reading Location: [facility] Chest x-ray, portable, single view shows prior sternotomy. Normal cardiac silhouette. Normal lung cazares. No pneumonia. No effusions. Left-sided Mediport. Interpreted by myself and the radiologist. Critical Care Time Critical Care Time: Yes Critical care time (excluding procedures): 30-74 minutes, Including time spent:, Discussing w/Patient &/or Family/Director Of Income Tax, Discussing w/Consultants, Arranging Admission or Transfer, Performing Direct Patient Care at Bedside and - (38 minutes) Discharge Plan Triage Chief Complaint: Nausea/Vomiting ED Provider: Alexandro Garces Dx/Rx/DC Orders Clinical Impression: Intractable nausea and vomiting, Diabetic keto-acidosis, Hx of diabetic gastroparesis Prescriptions: No Action gabapentin 300 mg capsule 600 mg PO BID (DME) pen needle, diabetic [Ultra-Thin II Ins Pen [place]] 29 gauge x 1/2 needle See Rx Instructions .Route Qty: 100 0RF Rx Instructions: As directed Skyrizi 150 mg/mL pen injector 150 mg subcut .[id number] albuterol sulfate [Ventolin HFA] 90 mcg/actuation HFA aerosol inhaler 1 - 2 puff inhalation Q4H PRN PRN (Reason: Wheezing) Qty: 1 0RF cholecalciferol (vitamin D3) 1,250 mcg (50,000 unit) capsule 1,250 mcg PO QWEEK Trulance 3 mg tablet 3 mg PO DAILY haloperidol 5 mg tablet 5 mg PO TID PRN (Reason: nausea and vomiting) Qty: 20 0RF Rx Instructions: Take 1/2-1 3 times a day as needed nausea and vomiting prochlorperazine maleate 10 mg tablet 10 mg PO TID PRN PRN (Reason: nausea/vomiting) insulin lispro [Humalog U-100 Insulin] 100 unit/mL solution See Rx Instructions .ROUTE .COMPLEX Qty: 10 4RF Rx Instructions: 100 U VIA PUMP DAILY; BASAL RATE - 1.8 UNITS/HOUR BOLUS: CARB RATIO- 1 UNIT /10 GRAMS OF CARBS CORRECTION- 1 UNIT FOR EVERY 30MG/DL BLOOD GLUCOSE OVER 120 Insulin Basal Pump (Pt's Own) [Pump, Basal] 1.8 unit subcut UD Qty: 0 0RF promethazine 25 mg tablet 50 mg PO Q6H PRN (Reason: nausea and vomiting) Rx Instructions: one or two every six hours for nausea quetiapine 50 mg tablet extended release 24 hr 50 mg PO QHS doxepin 6 mg tablet 6 mg PO QHS Primary Care Provider: Jaime Barbour Referrals: Jaime Barbour, [employer] [Primary Care Provider] - Print Language: French Disposition Disposition: Acute Care Hospital [facility]
[2025-03-17 21:35] VITALS: BMI 23.1
[2025-03-17 21:35] LABS: Internal QC Validated? YES +Cl - CLEAR BKGD; Pregnancy, Serum, hCG Quali. NEGATIVE Negative; Record Kit Lot#, Serum Preg. 962302
[2025-03-17 21:38] LABS: AST(SGOT) 18 U/L (<=31); Alanine Aminotransfer ALT/SGPT 18 U/L (<=34); Albumin, Serum 5.0 g/dL (3.5-5.0); Alkaline Phosphatase 123 U/L (35-104); Anion Gap 37 (5-15); BUN 17 mg/dL (4-19); BUN/Creat Ratio 14.1 RATIO (10-20); Calcium,Total 9.7 mg/dL (7.6-11.0); Carbon Dioxide 6.0 mmol/L (21.0-32.0); Chloride 84 mmol/L (98-108); Estimated Creatinine Clearance 72.85 ml/min (50-250); Globulin 2.7 g/dL (2.2-4.2); Glucose 561 mg/dL (70-99); Potassium 5.4 mmol/L (3.3-5.1)
[2025-03-17] MEDS: 0.9% Normal Saline (1000mL) 1,000 ML 999 ML IV ×3 (21:39→23:24)
--- NOTE | 2025-03-17 21:39 | ED.RN ---
Critical glucose of 561 and CO2 of 6.[address] Garces notified.
--- NOTE | 2025-03-17 21:42 | RAD_ITS ---
PROCEDURE: CHEST 1 VIEW (PORTABLE) 03/17/2025 REASON FOR EXAM: HIGH WBC TECHNIQUE: Frontal view of the chest. COMPARISON: None FINDINGS: Median sternotomy wires. Loop recorder device. Left chest port. Mild pulmonary vascular congestion. No focal consolidations.No pleural effusion or pneumothorax. Cardiac silhouette is within normal limits. RAD/Chest 1 View (Portable) IMPRESSION: Mild pulmonary vascular congestion. No focal consolidations. Reading Location: [id number]
--- OUTSIDE RECORDS SUMMARY | 2025-03-17 21:42 | XMS RPT_ITS | CCD ---
Author Organization [facility] Care Team Providers Care Manager Lpn Name Role Phone MEDICAL, CLINIC Unavailable Unavailable TEACH, MTS LUCY Unavailable Unavailable VAMSI MARRUFO Unavailable Unavailable MEDICAL, CLINIC Unavailable Unavailable Latosha Castro Unavailable Unavailab Vamsi Zaidi MD Unavailable [facility] Primary Care Provi benjie PHYSICIAN, PATIENT UNSURE Primary Care Physician Unavailable Kamwesa [employer] TECHNOLOGY INSTRUCTOR.Dashawn MALAVE Primary Care Provider Vamsi Cohen MD Unavailable Kamwesa COMPUTER SYSTEMS TECHNOLOGY INSTRUCTOR.Dashawn MALAVE Primary Care Provider Vamsi Cohen MD Unavailable [facility] Care Provi benjie Kamwesa COMPUTER SYSTEMS TECHNOLOGY INSTRUCTOR.Dashawn MALAVE Primary Care Provider Latosha Catsro Unavailable Unavailab Vamsi Zaidi MD Unavailable [phone] Kamwesa [employer]ER SYSTEMS TECHNOLOGY INSTRUCTOR.Dashawn MALAVE Primary Care Provider Kamwesa COMPUTER SYSTEMS TECHNOLOGY INSTRUCTOR.Dashawn MALAVE Primary Care Provider Vivi Smith MD Primary Care Provider Kamwesa [employer]PUT[employer] SYSTEMS TECHNOLOGY INSTRUCTOR.Dashawn MALAVE Primary Care Provider No, Physician Primary Care Provider UnavailBENITO Mensah Attending Unavailable ERNIE IRELAND Admitting Unavailabl e NO, PHYSICIAN Primary Care Unavailable [facility], [facility] Consulting Un available Care Physician, No Primary Primary Care Provider Unavailable Dr. Lin Johansen Emergency Provider Dr. David Smith Admit Provider Dr. David Smith Attending Provider Dr. David Smith Other Provider Dr. Vincenzo Castañeda Attending Provider Dr. Ileana Lobo Attending Provider Dr. Ileana Lobo Other Provider Jamel LOCKE, Alfredo Primary Care Provider [phone] Vamsi Cohen MD Unavailable Dr. Ileana Lobo Attending Provider Care Physician, No Primary Primary Care Provider Unavailable Dr. Lin Johansen Emergency Provider Dr. David Smith Admit Provider Dr. David Smith Attending Provider Dr. David Smith Other Provider Dr. Ileana Lobo Attending Provider Dr. Ileana Lobo Other Provider [facility] Primary Care Provider Unav ailDr. Lul Ferrell Emergency Provider Dr. Vamsi Duvall Admit Provider Unavailabl e Dr. Vamsi Duvall Other Provider Unavailabl e Dr. Dangelo Encarnacion Attending Provider Dr. Dangelo Encarnacion Other Provider [phone] Care Physician, No Primary Primary Care Provider Unavailable Toby SALEEM, Kyara Richter Unavailable Unavailab FUNMILAYO Del Angel Primary Care Provider [phone] Dr. Alexandro Garces Emergency Provider Dr. Vita Jefferson Admit Provider Koram, Dr. Vita Rojas Attending Provider Koram, Dr. Vita Rojas Other Provider Toby SALEEM, Kyara Richter Unavailable Unavailab le Care Physician, No Primary Primary Care Provider Unavailable Dr. Lul Singh Emergency Provider [phone] Dr. Vamsi Duvall Admit Provider Unavailvera e Dr. Vamsi Duvall Other Provider Unavailabl e Alysha, Dr. Pierson Attending Provider [phone] Dr. Dangelo Encarnacion Other Provider FUNMILAYO SMITH Primary Care Provider Dr. Alexandro Garces Emergency Provider Koram, Dr. Vita Rojas Admit Provider [phone] Korismael, Dr. Vita Rojas Attending Provider Kor, Dr. Vita Rojas Other Provider SMITH, AHMAD KHPATRICIO Primary Care Unavailabl e GREG TALBOT Attending Unavailable MADONNA TORO Attending Unavailable SMITH, AHMAD KHPATRICIO Primary Care Unavailabl e MADONNA TORO Referring Unavailable SMITH, AHMAD KHPATRICIO Primary Care Unavailabl e SMITH, VIVI BARAHONA Attending Unavailabl e [facility], [facility] Primary Care Unavailabl e SMITH, AHIAFranklin BARAHONA Primary Care Unavailabl e SMITH, AHIAFranklin KHPATRICIO Primary Care Unavailabl e CAMILO CENTENO Admitting Unavailable DAVID BURNETT Attending Unavailable KVNG LEWIS Consulting Unavailable Sarah LOCKE, Vivi Barahona Primary Care Provider Jamel LOCKE, Alfredo Cobb Primary Care Provider Vamsi Cohen MD Unavailable LETICIA HYLTON Referring Unavailable SMITH, AHMAD KHPATRICIO Primary Care Unavailabl e SMITH, AHMAD KHPATRICIO Primary Care Unavailabl e LETICIA HYLTON Attending Unavailable SMITH, AHMAD KHPATRICIO Primary Care Unavailabl e JESSICA GUERRERO Attending Unavailable SMITH, AHMAD KHARIS Primary Care UnavailKVNG Bush Attending Unavailable SMITH, AHMAD KHARIS Primary Care Unavailabl e JASON PAREDES Attending Unavailable SMITH, AHMAD KHARIS Primary Care Unavailabl e JASON PAREDES Referring Unavailable SMITH, AHMAD KHARIS Primary Care Unavailabl e JESSICA GUERRERO Attending Unavailable KVNG LEWIS Referring Unavailable SMITH[facility] Primary Care Unavailabl e LETICIA HYLTON Attending Unavailable SMITH, AHMAD KHARIS Primary Care Unavailabl e MISHEL ORTEZ Attending Unavailable [facility] Primary Care Unavailable Care Physician, No Primary Primary Care Unava ilable Sergey Islas Attending Unavailable Beam VSC, Zebulun Primary Care Unavailable Ileana Lobo Consulting Unavailable Ileana Lobo Admitting Unavailable Dangelo Encarnacion Attending Unavailable John Knapp Attending Unavailable Kenyetta Suarez Consulting Unavailable Kenyetta Suarez Admitting Unavailable Care Physician, No Primary Primary Care Unava ilable Kenyetta Suarez Attending Unavailable Ileana Lobo Consulting Unavailable Ileana Lobo Admitting Unavailable Care Physician, No Primary Primary Care Unava ilable Kenyetta Suarez Consulting Unavailable Beam VSC, Zebulun Primary Care Unavailable David Smith Consulting Unavailable David Smith Admitting Unavailable Marc Carl Referring Unavailable Estevan Davis Attending Unavailable Vita Jefferson Consulting Unavailable Beam VSC, Zebulun Primary Care Unavailable Lin Rowe Referring Unavailable Lin Rowe Attending Unavailable Beam VSC, Zebulun Primary Care Unavailable Laine Garcia Attending Unavailable Dangelo Encarnacion Consulting Unavailable Beam VSC, Zebulun Primary Care Unavailable Dangelo Encarnacion Admitting Unavailable Greg Mon Attending Unavailable Beam VSC, Zebulun Primary Care Unavailable Beam VSC, Zebulun Attending Unavailable Beam VSC, Zebulun Primary Care Unavailable Beam VSC, Zebulun Referring Unavailable Truman Gee Attending Unavailable Edie Bear Attending Unavailable Care Physician, No Primary Primary Care Unava ilable Edie Bear Referring Unavailable Edie Bear Attending Unavailable Care Physician, No Primary Primary Care Unava ilable Edie Bear Referring Unavailable Edie Bear Attending Unavailable Care Physician, No Primary Primary Care Unava ilable Beam VSC, Zebulun Primary Care Unavailable Laine Garcia Attending Unavailable Edie Bear Attending Unavailable Care Physician, No Primary Primary Care Unava ilable Edie Bear Referring Unavailable Edie Bear Attending Unavailable Care Physician, No Primary Primary Care Unava ilable Care Physician, No Primary Primary Care Unava ilable Frybarger VSC, Brit Attending Unavailabl e Care Physician, No Primary Primary Care Unava ilable Le, Olvin Attending Unavailable Stacey, Olvin Referring Unavailable Beam VSC, Zebulun Primary Care Unavailable Ileana Lobo Consulting Unavailable Ileana Lobo Attending Unavailable Ileana Lobo Admitting Unavailable Care Physician, No Primary Primary Care Unava ilable White, Ramya L Consulting Unavailable White, Ramya L Attending Unavailable White, Ramya L Referring Unavailable White, Ramya L Admitting Unavailable John Knapp Attending Unavailable John Knapp Consulting Unavailable Dangelo Encarnacion Admitting Unavailable Dangelo Encarnacion Consulting Unavailable Dangelo Encarnacion Attending Unavailable Dangelo Encarnacion Referring Unavailable Care Physician, No Primary Primary Care Unava ilable Beam VSC, Zebulun Primary Care Unavailable David Smith Admitting Unavailable David Smith Consulting Unavailable Marc Carl Referring Unavailable Vita Jefferson Attending Unavailable Vita Jefferson Consulting Unavailable Beam VSC, Zebulun Primary Care Unavailable Beam VSC, Zebulun Referring Unavailable Lin Rowe Attending Unavailable Estevan Davis Attending Unavailable Estevan Davis Consulting Unavailable Ileana Lobo Attending Unavailable Beam VSC, Zebulun Referring Unavailable Beam VSC, Zebulun Primary Care Unavailable Marlen, Truman Attending Unavailable Truman Gee Consulting Unavailable Dangelo Encarnacion Consulting Unavailable Beam VSC, Zebulun Primary Care Unavailable Dangelo Encarnacion Admitting Unavailable Greg Mon Attending Unavailable Greg Mon Consulting Unavailable Dangelo Encarnacion Attending Unavailable Alysha Dangelo Consulting Unavailable Vamsi Duvall Attending Unavailable Vamsi Duvall Admitting Unavailable Care Physician, No Primary Primary Care Unava ilable Vamsi Duvall Consulting Unavailable Ryan, Estevan Attending Unavailable Ryan, Estevan Consulting Unavailable Koram, Vita Crystal Attending Unavailable Koram, Vita Crystal Consulting Unavailable Dangelo Encarnacion Attending Unavailable Care Physician, No Primary Primary Care Unava ilable John Knapp Attending Unavailable Kenyetta Suarez Consulting Unavailable Kenyetta Suarez Admitting Unavailable John Knapp Consulting Unavailable John Knapp Attending Unavailable John Knapp Consulting Unavailable David Smith Attending Unavailable Kenyetta Suarez Attending Unavailable Koram, Vita Crystal Attending Unavailable Koram, Vita Crystal Consulting Unavailable Dangelo Encarnacion Admitting Unavailable Dangelo Encarnacion Consulting Unavailable John Knapp Attending Unavailable Dangelo Encarnacion Referring Unavailable Care Physician, No Primary Primary Care Unava ilable Koram, Vita Crystal Consulting Unavailable WhiteRamya L Admitting Unavailable Care Physician, No Primary Primary Care Unava ilable John Knapp Attending Unavailable White, Ramya L Consulting Unavailable White, Ramya L Referring Unavailable Koram, Vita Crystal Consulting Unavailable Care Physician, No Primary Primary Care Unava ilable Chirinos, Rm Attending Unavailable Vamsi Duvall Consulting Unavailable Vamsi Duvall Admitting Unavailable Care Physician, No Primary Primary Care Unava ilable Estevan Davis Attending Unavailable John Knapp Attending Unavailable Ileana Lobo Consulting Unavailable Ileana Lobo Admitting Unavailable Care Physician, No Primary Primary Care Unava ilable Kenyetta Suarez Consulting Unavailable John Knapp Attending Unavailable Care Physician, No Primary Primary Care Unava ilable Marc Carl Attending Unavailable Allergies Allergy Classification Reported Allergen(s) Allergy Type Date of Onset Reaction(s) Facility Acetaminophen / oxyCODONE (2 sources) Acetaminophen / oxyCODONE Drug Allergy 4 Itching, Rash, Intolerance [facility] Adhesive Tape (1 source) Adhesive Tape Substance Allergy 4 Rash [facility] Cephalosporins (antibiotic) (2 sources) Cephalexin Drug Allergy 4 Other: See Comments [facility] NSAIDs (1 source) Indomethacin Drug Allergy 4 Rash [facility] Ondansetron (2 sources) Ondansetron Drug Allergy 5 Other: See Comments [facility] Opioid Agonists (2 sources) Morphine Drug Allergy 4 Itching, Rash [facility] (20 sources) Acetaminophen / oxyCODONE; Translations: [acetaminophen-ox ycodone] Drug Allergy 4 Rash, Intolerance, Itching [facility] (20 sources) Adhesive Tape; Translations: [ADHESIVE TAPE (ROSINS)] Allergy to substance 4 Rash [facility] (20 sources) Cephalexin; Translations: [cephalexin] Drug Allergy 4 Other: See Comments, Urinary tract infectious disease (disorder) [facility] Work Phone: (20 sources) Morphine; Translations: [morphine] Drug Allergy 4 Rash, Itching [facility] (20 sources) Ondansetron; Translations: [ONDANSETRON HCL (PF)] Drug Allergy 5 Other: See Comments, Other (See Comments) [facility] (1 source) Adhesive Tape Propensity to adverse reactions to substance Redness [facility] (20 sources) Ondansetron; Translations: [ondansetron] Drug Allergy 5 I BLACK OUT AND LOSE CONTROL OF MY BLADDER [facility] (20 sources) Adhesive agent; Translations: [ADHESIVE] Drug Allergy 3 [facility] (20 sources) Indomethacin; Translations: [INDOMETHACIN] Drug Allergy 4 [facility] (2 sources) Adhesive Tape-Silicones; Translations: [ADHESIVE TAPE-SILICONES] Propensity to adverse reactions to drug 3 [facility] (1 source) Ondansetron; Translations: [ONDANSETRON HCL] Drug Allergy 3 [facility] (2 sources) Acetaminophen Drug Allergy 3 [facility] (15 sources) Adhesive Tape; Translations: [adhesive tape] Allergy to substance 3 [facility] (15 sources) oxyCODONE Drug Allergy 3 Itching, [facility] (1 source) Acetaminophen Drug Allergy 3 Itching, Rash [facility] (1 source) Wound Dressing Adhesive Drug Allergy 3 [facility] (1 source) Cephalexin Drug Allergy 5 [facility] (1 source) Morphine Drug Allergy 5 [facility] (1 source) Ondansetron Drug Allergy 5 [facility] (1 source) oxyCODONE Drug Allergy 5 [facility] Medications Current Medications Medication Drug Class(es) Dates Sig (Normalized) Sig (Original) acetaminophen 325 mg / HYDROcodone bitartrate 5 mg oral tablet (2 sources) Opioid Agonist Start: 10-21-2024 take 1 tablet by mouth every six hours as needed for pain HYDROcodone-aceta minophen ([place]) 5-325 MG tablet TAKE 1 TABLET BY MOUTH EVERY 6 HOURS NEEDED FOR PAIN FOR 5DAYS 10/21/2024 Active Start: 12-08-2022 End: 12-11-2022 take 1 tablet by mouth every six hours as needed for pain HYDROcodone-acetaminophen (NORCO) 5-325 mg per tablet Indications: Abdominal pain, unspecified abdominal location Take 1 tablet by mouth every 6 hours as needed for pain for up to 3 days. 12 tablet 0 12/08/2022 12/11/2022 Active Comment on above: Take 1 tablet by marga th every 6 hours as needed for pain for up to 3 days. Acetone, Urine, Test (KETONE URINE TEST) (20 sources) Start: 07-19-2024 Acetone, Urine, Test (KETONE URINE TEST) In case of concern with DKA, to be used at home 100 Each 3 07/19/2024 Active Start: 05-03-2022 End: 07-19-2024 Acetone, Urine, Test (KETONE URINE TEST) Indications: 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) Use as directed 100 Strip 5 05/03/2022 07/19/2024 Discontinued Start: 05-03-2022 Acetone, Urine , Test (KETONE URINE TEST) Indications: 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) Use as directed 100 Strip 5 05/03/2022 Suspended Start: 05-03-2022 Acetone, Urine , Test (KETONE URINE TEST) Indications: 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) Use as directed 100 Strip 5 05/03/2022 Active Start: 11-25-2020 End: 05-02-2022 Acetone, Urine, Test (KETONE URINE TEST) Indications: 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) Use as directed 100 Strip 5 11/25/2020 05/02/2022 Discontinued Start: 11-25-2020 Acetone, Urine , Test (KETONE URINE TEST) Indications: 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) Use as directed 100 Strip 5 11/25/2020 Active Comment on above: Use as directed [id number] 200 actuat albuterol 0.09 mg/actuat metered dose inhaler (1 source) beta2-Adrenergic Agonist Start: 08-01-20 take 1-2 puff(s) by inhalation every four hours as needed for wheezing albuterol 108 (90 Base) MCG/ACT inhaler use 1 to 2 puffs inhaled every FOUR hours as needed for FOR WHEEZING] 08/01/2024 Active azithromycin 500 mg oral tablet (7 sources) Macrolide Antimicrobial Start: 05-12-20 azithromycin (Zithromax) 500 MG tablet Start: 05-10-2022 End: 05-13-2022 take 2 tablets by mouth once daily azithromycin (ZITHROMAX) 500 mg tablet Indications: Gonorrhea Take 2 tablets by mouth once daily for 1 day. 2 tablet 0 05/12/2022 05/13/2022 Active Comment on above: Take 2 tablets by [facility] once daily for 1 day. benzoyl peroxide 100 mg/ml medicated liquid soap (10 sources) Start: 08-15-2023 benzoyl peroxide (BENZAC AC WASH) 10 % external wash Indications: Acne vulgaris Use to wash affected areas once daily in the shower. Rinse thoroughly. 227 g 3 08/15/2023 Active busPIRone hydrochloride 5 mg oral tablet (20 sources) Start: 06-19-2024 take 1 tablet by mouth every twelve hours busPIRone (Buspar) 5 MG tablet Take 1 tablet by mouth every 12 hours. 06/19/2024 Active Start: 12-06-2019 End: 03-07-2022 busPIRone (BUSPAR) 5 mg tabl et cholecalciferol 1.25 mg oral capsule (1 source) Vitamin D Start: 12-09-2024 cholecalcifero l (Vitamin D-3) 1.25 MG (43717 UT) capsule Take by mouth 1 (one) time per week. 12/09/2024 Active clindamycin 10 mg/ml topical lotion (20 sources) Lincosamide Antibacterial Start: 08-15-2023 End: 08-14-2024 clindamycin (Cleocin-T) 1 % lotion Indications: Acne vulgaris Apply topically 2 times daily. 60 mL 3 08/15/2023 08/14/2024 Active Start: 10-04-2022 clindamycin (C leocin-T) 1 % lotion Indications: Folliculitis , Encounter for long-term current use of high risk medication Apply thin layer to affected areas of bilateral legs every day. 60 mL 3 10/04/2022 Active clobetasol propionate 0.5 mg/ml topical solution (20 sources) Corticosteroid Start: 08-15-2023 clobetasol (Te movate) 0.05 % external solution Apply to affected areas on scalp BID x 6 weeks Stop using when clear. Repeat as needed for flares. Do not use on face, armpits, groin. 50 mL 3 08/15/2023 Active Start: 02-07-2022 End: 04-18-2022 clobetasol (Temovate) 0.05 % external solution 02/07/2022 Active dexamethasone 1 mg/ml / neomycin 3.5 mg/ml / polymyxin b 81216 unt/ml ophthalmic suspension (1 source) Aminoglycoside Antibacterial, Polymyxin-class Antibacterial, Corticosteroid Start: 11-07-2022 End: 11-14-2022 take 1 drop(s) into the eye(s) four times daily neomycin/polymyxin b/dexametha(MAXITROL 3.5 MG/ML-10,000 UNIT/ML-0.1% EYE DROPS,SUSPENSION) Use 1 Drop in the right eye four times daily for 7 days. 15 mL 0 11/07/2022 11/14/2022 Active Comment on above: Use 1 Drop in the ri ght eye four times daily for 7 days. doxepin 6 mg oral tablet (5 sources) Tricyclic Antidepressant Start: 11-06-2024 take 1 tablet by mouth once daily at bedtime Doxepin 6 mg tab Take 6 mg by mouth daily at bedtime. 11/06/2024 Active fluconazole 100 mg oral tablet (5 sources) Azole Antifungal Start: 10-21-2024 take 1 tablet by mouth once daily fluconazole (Diflucan) 100 MG tablet Take 100 mg by mouth daily. 10/21/2024 Active Start: 05-12-2022 fluconazole (D iflucan) 150 MG tablet Start: 05-12-2022 End: 05-12-2022 take 1 tablet by mouth once fluconazole (DIFLUCAN) 150 mg tablet Indications: Gonorrhea Take 1 tablet by mouth one time only for 1 dose. 1 tablet 0 05/12/2022 05/12/2022 Active Comment on above: Take 1 tablet by marga one time only for 1 dose. gabapentin 300 mg oral capsule (1 source) Anti-epileptic Agent Start: 01-02-20 take 1 capsule by mouth twice daily as needed for anxiety gabapentin (Neurontin) 300 MG capsule TAKE 1 CAPSULE BY MOUTH TWICE DAILY NEEDED FOR ANXIETY 01/01/2025 Active haloperidol 2 mg oral tablet (1 source) Typical Antipsychotic Start: 11-07-19 haloperidol (Haldol) 2 MG tablet TAKE 1 OR 2 (TWO) TABLETS THREE TIMES DAILY NEEDED FOR NAUSEA AND VOMITTING 11/06/2024 Active hydrOXYzine hydrochloride 50 mg oral tablet (20 sources) Antihistamine Start: 04-14-20 hydrOXYzine HCl (Atarax) 50 MG tablet 04/14/2022 Active Comment on above: Take 50 mg by mouth every 6 hours as needed. insulin aspart, human 100 unt/ml injectable solution (20 sources) Insulin Analog Start: 11-29-19 Insulin Aspart 100 UNIT/ML solution USE DIRECTED with INSULIN PUMP, UP TO 100 UNITS PER DAY 11/28/2022 Active Start: 11-28-2022 Insulin Aspart 100 UNIT/ML solution USE DIRECTED with INSULIN PUMP, UP TO 100 UNITS PER DAY 0 11/28/2022 Active Start: 08-16-2022 End: 01-25-2023 insulin aspart U-100 (NOVOLO G U-100 INSULIN ASPART) 100 unit/mL Indications: Type 1 diabetes mellitus with hyperglycemia, with long-term current use of insulin (HCC) , Insulin pump status Use in the Insulin pump for TDD of 100 units. 90 mL 1 01/25/2023 Active Start: 05-04-2022 End: 08-16-2022 insulin aspart U-100 (NOVOLO G U-100 INSULIN ASPART) 100 unit/mL Use with insulin pump upto 100 units/day 90 mL 1 05/04/2022 08/16/2022 Discontinued Start: 04-07-2021 End: 05-02-2022 insulin aspart U-100 (NOVOLO G U-100 INSULIN ASPART) 100 unit/mL Use with insulin pump upto 100 units/day 90 mL 1 05/04/2022 Active Comment on above: Use with insulin pum p upto 100 units/day Use in the Insulin p ump for TDD of 100 units. 3 ml insulin detemir 100 unt/ml pen injector (11 sources) Insulin Analog Start: 7 inject 1 dose by subcutaneous injection once daily at bedtime Levemir FlexTouch 100 units/mL 3 mL Pen Dose : 50 unit(s) =, Subcutaneous, qHS Start Date: 06/29/17 Status: Ordered insulin detemir (Levemir) 100 UNIT/ML injection use units at bed time prn Active 3 ml insulin glargine 100 unt/ml pen injector (20 sources) Insulin Analog Start: 06-25-2024 End: 12-22-2024 insulin glargine (LANTUS SOLOSTAR U-100 INSULIN) 100 unit/mL (3 mL) Indications: Diabetes mellitus type 1, controlled, without complications (HCC) Inject 43 Units subcutaneously every 24 hours. 38.7 mL 1 06/25/2024 12/22/2024 Active Start: 09-20-2023 End: 09-24-2023 Insulin Glargine (Lantus Sandra ostar U-100 Insulin) 100 unit/mL (3 mL) insulin pen Discontinued 45 UNIT SC AT BEDTIME September 20, 2023 1:00am September 24, 2023 7:02pm Start: 08-10-2023 Lantus SoloSta r 100 UNIT/ML pen 08/10/2023 Active Start: 08-10-2023 End: 09-20-2023 Insulin Glargine (Lantus Sandra ostar U-100 Insulin) 100 unit/mL (3 mL) insulin pen Discontinued 30 UNIT SC TWICE A DAY 3 August 10, 2023 1:00am September 20, 2023 3:20pm Start: 08-16-2022 End: 06-25-2024 insulin glargine 100 unit/mL (3 mL) Indications: Type 1 diabetes mellitus with hyperglycemia, with long-term current use of insulin (HCC) , Insulin pump status Inject 43 Units subcutaneously as directed in the event of Insulin pump failure. 15 mL 1 05/17/2024 06/25/2024 Discontinued Start: 08-16-2022 insulin glargi ne (LANTUS SOLOSTAR, BASAGLAR KWIKPEN) 100 unit/mL (3 mL) Indications: Type 1 diabetes mellitus with hyperglycemia, with long-term current use of insulin ([facility]) , Insulin pump status Inject 43 Units subcutaneously as directed in the event of Insulin pump failure. 15 mL 1 08/16/2022 Active Comment on above: Inject 43 Units subc utaneously as directed in the event of Insulin pump failure. 3 ml insulin lispro 100 unt/ml pen injector (20 sources) Insulin Analog Start: 06-25-2024 insulin lispro (HUMALOG KWIKPEN) 100 unit/mL Indications: Diabetes mellitus type 1, controlled, without complications ([facility]) Please inject three times a day with meals- 1 unit for every 10 grams of carbs AND sliding scale 1 ADMINISTER SUPPLEMENTAL INSULIN REGARDLESS OF MEAL OR NUTRITION INTAKE: If Blood Glucose (mg/dL) is 400 give 5 units and notify provider. MAX TDD 40 units 45 mL 3 06/25/2024 Active Start: 09-20-2023 End: 09-24-2023 inject 1 [IU] by subcutaneous injection once at mealtime Insulin Lispro (Humalog Kwikpen Insulin) 100 unit/mL insulin pen Discontinued 0 SC .COMPLEX September 20, 2023 1:00am September 24, 2023 7:02pm 1 UNIT FOR EVERY 10 GRAMS OF CARB WITH MEALS subcutaneously; Start: 09-12-2023 End: 02-13-2024 insulin lispro (HUMALOG U-10 0 INSULIN) 100 unit/mL injection Indications: Type 1 diabetes mellitus with hyperglycemia, with long-term current use of insulin ([facility]) Use in the Insulin Pump for TDD of 100 units. 90 mL 1 02/13/2024 Active Start: 08-10-2023 HumaLOG KWIKPE N 100 UNIT/ML pen injection 08/10/2023 Active Start: 08-10-2023 End: 09-20-2023 Insulin Lispro (Humalog Kwik pen Insulin) 100 unit/mL insulin pen Discontinued 10 UNIT SC THREE TIMES A DAY 3 August 10, 2023 1:00am September 20, 2023 3:20pm Start: 04-27-2023 Insulin Lispro (Humalog U-100 Insulin) 100 unit/mL solution Active 0 .ROUTE .COMPLEX April 27, 2023 12:00am 100 U VIA PUMP DAILY; BASAL RATE - 1.8 UNITS/HOUR BOLUS: CARB RATIO- 1 UNIT /10 GRAMS OF CARBS CORRECTION- 1 UNIT FOR EVERY 30MG/DL BLOOD GLUCOSE OVER 120 Start: 04-27-2023 Insulin Lispro (Humalog U-100 Insulin) 100 unit/mL solution Active 0 .ROUTE .COMPLEX April 26, 2023 11:00pm 100U VIA PUMP DAILY; Start: 03-09-2023 End: 05-31-2023 insulin lispro (HUMALOG U-10 0 INSULIN) 100 unit/mL injection Use in the Insulin Pump for TDD of 100 units. 90 mL 1 05/31/2023 Active Start: 03-09-2023 HumaLOG U-100 Insulin 100 unit/mL injection use IN THE INSULIN PUMP FOR A TOTAL DAILY DOSE OF 100 UNITS 0 03/09/2023 Active Comment on above: Use in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 (2 sources) Diarrhea, unspecified; Translations: [Diarrhea, unspecified] Onset: 08-05-2024 Episodic Other inflammatory condition of skin (5 sources) Psoriasis vulgaris; Translations: [Psoriasis vulgaris] Onset: 01-27-2025 05-02-2023 Chronic Other inflammatory condition of skin (1 source) Psoriasis vulgaris; Translations: [Psoriasis vulgaris] Onset: 01-27-2025 Chronic Other liver diseases (1 source) Fatty (change of) liver, not elsewhere classified; Translations: [Fatty (change of) liver, not elsewhere classified] Onset: 03-12-2025 Chronic Other nutritional; endocrine; and metabolic disorders (5 sources) Ketosis; 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] 09-20-2023 Chronic Other nutritional; endocrine; and metabolic disorders (1 source) Hypomagnesemia; Translations: [Hypomagnesemia] Onset: 08-05-2024 Chronic Other nutritional; endocrine; and metabolic disorders (1 source) Personal history of other endocrine, nutritional and metabolic disease; Translations: [Personal history of other endocrine, nutritional and metabolic disease] Onset: 12-21-2024 Episodic Other screening for suspected conditions (not mental disorders or infectious disease) (1 source) Thyroid function tests abnormal; Translations: [Abnormal results of thyroid function studies] Episodic Other skin disorders (2 sources) Folliculitis; Translations: [Follicular disorder, unspecified] Episodic Other skin disorders (1 source) Seborrheic keratosis; Translations: [Other seborrheic keratosis] 01-27-2025 Episodic Other skin disorders (1 source) Solar lentigo; Translations: [Other melanin hyperpigmentation] 01-27-2025 Episodic Other skin disorders (2 sources) Other seborrheic keratosis; Translations: [Other seborrheic keratosis] Onset: 01-27-2025 Episodic Other skin disorders (2 sources) Other melanin hyperpigmentation; Translations: [Other melanin hyperpigmentation] Onset: 01-27-2025 Episodic Sexually transmitted infections (not HIV or hepatitis) (3 sources) Gonorrhea; Translations: [Gonococcal infection, unspecified] Episodic Unclassified (1 source) Unknown / UNK(Unknown) Onset: 02-23-2017 Unclassified (20 sources) SUMMARY Onset: 12-25-2012 Unclassified (1 source) History of clinical finding in subject 10-21-2015 Comment on above: Loop recorder. She s tates she has runs of tachycardia daily. Unsure of type of tachycardia Unclassified (1 source) Left eye structure (body structure) Onset: 03-07-2013 09-18-2014 Comment on above: LENS DETACHMENT Unclassified (3 sources) Cyclical vomiting syndrome unrelated to migraine; Translations: [Cyclical vomiting] Onset: 01-31-2023 Unclassified (1 source) Acidosis, unspecified; Translations: [Acidosis, unspecified] Onset: 01-26-2025 Past or Other Problems Problem Classification Problem Date Documented Date Episodic/Chronic Cardiac dysrhythmias (20 sources) Bradycardia; Translations: [Bradycardia, unspecified] Onset: 12-10-2014 Resolved: 12-12-2014 03-20-2023 Episodic Diabetes mellitus without complication (20 sources) Hyperglycemia; Translations: [Insulin pump present] Onset: 02-23-2017 Episodic Diabetes or abnormal glucose tolerance complicating ; childbirth; or the puerperium (20 sources) Diabetes mellitus during , childbirth and the puerperium; Translations: [Unspecified diabetes mellitus in , unspecified trimester] Onset: 12-25-2013 Resolved: 10-03-2018 04-16-2014 Chronic Fluid and electrolyte disorders (20 sources) Dehydration; Translations: [Dehydration] Onset: 12-10-2014 Resolved: 12-15-2014 05-03-2023 Episodic Genitourinary symptoms and ill-defined conditions (3 sources) Dysuria; Translations: [Dysuria] Onset: 01-25-2023 Episodic Nonspecific chest pain (20 sources) Acute chest pain; Translations: [Chest pain, unspecified] Onset: 12-25-2012 03-20-2023 Episodic Other complications of (20 sources) Hereditary disease in family possibly affecting fetus; Translations: [Maternal care for (suspected) hereditary disease in fetus, not applicable or unspecified] Onset: 10-07-2015 10-07-2015 Episodic Other complications of (20 sources) Abdominal pain in ; Translations: [Other specified related conditions, unspecified trimester] Onset: 11-12-2015 11-12-2015 Episodic Other complications of (19 sources) Group B Streptococcus carrier; Translations: [Streptococcus B carrier state complicating ] Onset: 11-11-2013 Resolved: 04-16-2014 04-16-2014 Episodic Other disorders of stomach and duodenum (20 sources) Gastroparesis syndrome; Translations: [Gastroparesis] Onset: 06-19-2014 Resolved: 11-05-2024 06-19-2014 Episodic Other disorders of stomach and duodenum (1 source) Gastroparesis; Translations: [Gastroparesis] Onset: 08-05-2024 Episodic Other lower respiratory disease (20 sources) Dyspnea; Translations: [Dyspnea, unspecified] Onset: 11-04-2014 08-23-2021 Episodic Other nervous system disorders (20 sources) Postoperative pain ; Translations: [Other acute postprocedural pain] Onset: 12-10-2014 Episodic Other non-traumatic joint disorders (1 source) Pain in left hip; Translations: [Pain of left hip] Onset: 04-06-2023 Episodic Other and delivery including normal (20 sources) ; Translations: [Encounter for supervision of normal , unspecified, unspecified trimester] Onset: 11-22-2013 Resolved: 03-06-2017 08-23-2021 Episodic Pleurisy; pneumothorax; pulmonary collapse (20 sources) Atelectasis; Translations: [Atelectasis] Onset: 12-10-2014 Episodic Retinal detachments; defects; vascular occlusion; and retinopathy (19 sources) Retinal detachment; Translations: [Serous retinal detachment, unspecified eye] Onset: 10-26-2012 Resolved: 12-25-2012 12-25-2012 Episodic Syncope (20 sources) Near syncope; Translations: [Syncope and collapse] Onset: 06-17-2014 06-17-2014 Episodic Unclassified (20 sources) Drug therapy finding; Translations: [DVT prophylaxis] Onset: 12-25-2012 Resolved: 04-16-2014 08-23-2021 Unclassified (19 sources) DISPOSITION AND FOLLOW-UP Onset: 12-25-2012 Resolved: 09-04-2013 08-23-2021 Urinary tract infections (16 sources) Urinary tract infectious disease; Translations: [Urinary tract infection, site not specified] Onset: 10-21-2024 04-23-2023 Episodic Results Test Name Value Interpretation Reference Range Facility Bedside Glucoseon 03-08-2025 FINGERSTICK GLU 252 mg/dL High 74-106 [facility] Comment on above: Result Comment: EDGAR GEMENT OF PATIENT CARE PER NURSING PROTOCOL Performed By: #### L 501.080 ####[facility] [address] [place], [place], [address] FINGERSTICK GLU 272 mg/dL High 74-106 [facility] Comment on above: Result Comment: EDGAR GEMENT OF PATIENT CARE PER NURSING PROTOCOL Performed By: #### L 501.080 ####[facility] [address] [place], [address] Basic Metabolic Profile (BMP )on 03-07-2025 BUN Normal 4-19 [facility] Comment on above: Result Comment: Canc elled via OM: MD Ordered Performed By: #### L 500.2500 ####[facility] [address] [place], [address] BUN/CRE Normal 10-20 [facility] Comment on above: Result Comment: Canc elled via OM: MD Ordered Performed By: #### L 500.2500 ####[facility] [address] [place], [address] Calcium Normal 7.6-11.0 [facility] Comment on above: Result Comment: Canc elled via OM: MD Ordered Performed By: #### L 500.2500 ####[facility] [address] [place], [address] CL Normal 98-108 [facility] Comment on above: Result Comment: Canc elled via OM: MD Ordered Performed By: #### L 500.2500 ####[facility] [address] [place], [address] CO2 Normal 21.0-32.0 [facility] Comment on above: Result Comment: Canc elled via OM: MD Ordered Performed By: #### L 500.2500 ####[facility] [address] [place], [address] CREAT,SERUM Normal 0.70-1.20 [facility] Comment on above: Result Comment: Canc elled via OM: MD Ordered Performed By: #### L 500.2500 ####[facility] [address] [place], [address] eGFR Normal >60 [facility] Comment on above: Result Comment: Canc elled via OM: MD Ordered Performed By: #### L 500.2500 ####[facility] [address] [place], [address] GAP Normal 5-15 [facility] Comment on above: Result Comment: Canc elled via OM: MD Ordered Performed By: #### L 500.2500 ####[facility] [address] [place], [address] GLU Normal 70-99 [facility] Comment on above: Result Comment: Canc elled via OM: MD Ordered Performed By: #### L 500.2500 ####[facility] [address] [place], [address] Potassium Normal 3.3-5.1 [facility] Comment on above: Result Comment: Canc elled via OM: MD Ordered Performed By: #### L 500.2500 ####[facility] [address] [place], [address] Basic Metabolic Profile (BMP) Normal 133-145 [facility] Comment on above: Result Comment: Canc elled via OM: MD Ordered Performed By: #### L 500.2500 ####[facility] [address] [place], [address] BUN/CRE 8.1 RATIO Low 10-20 [facility] Comment on above: Performed By: #### L 500.2500 ####[facility] [address] [place], [address] Calcium [Mass/Vol] 8.0 mg/dL Normal 7.6-11.0 [facility] Comment on above: Performed By: #### L 500.2500 ####[facility] [address] [place], [address] Chloride [Moles/Vol] 110 mmol/L High 98-108 [facility] Comment on above: Performed By: #### L 500.2500 ####[facility] [address] [place], [address] CO2 [Moles/Vol] 21.4 mmol/L Normal 21.0-32.0 [facility] Comment on above: Performed By: #### L 500.2500 ####[facility] [address] [place], [address] Creatinine [Mass/Vol] 0.58 mg/dL Low 0.70-1.20 [facility] Comment on above: Performed By: #### L 500.2500 ####[facility] [address] [place], [address] ECRCL 148.22 ml/min Normal 50-250 [facility] Comment on above: Performed By: #### L 500.2500 ####[facility] [address] [place], [address] GAP 8 Normal 5-15 [facility] Comment on above: Performed By: #### L 500.2500 ####[facility] [address] [place], [address] GFR/1.73 sq M.predicted among non-blacks MDRD (S/P/Bld) [Vol rate/Area] 125 mL/min/{1.73_m2} Normal >60 [facility] Comment on above: Result Comment: mL/m in/1.73m2 CKD-EPI Creatinine Equation (2020) Performed By: #### L 500.2500 ####[facility] [address] [place], [address] Glucose [Mass/Vol] 113 mg/dL High 70-99 [facility] Comment on above: Performed By: #### L 500.2500 ####[facility] [address] [place], [address] Potassium [Moles/Vol] 3.2 mmol/L Low 3.3-5.1 [facility] Comment on above: Performed By: #### L 500.2500 ####[facility] [address] [place], [address] Sodium [Moles/Vol] 139 mmol/L Normal 133-145 [facility] Comment on above: Performed By: #### L 500.2500 ####[facility] [address] [place], [address] Urea nitrogen [Mass/Vol] 5 mg/dL Normal 4-19 [facility] Comment on above: Performed By: #### L 500.2500 ####[facility] [address] [place], [address] BUN/CRE 9.9 RATIO Low 10-20 [facility] Comment on above: Performed By: #### L 500.2500 ####[facility] [address] [place], [address] Calcium [Mass/Vol] 8.2 mg/dL Normal 7.6-11.0 [facility] Comment on above: Performed By: #### L 500.2500 ####[facility] [address] [place], [address] Chloride [Moles/Vol] 109 mmol/L High 98-108 [facility] Comment on above: Performed By: #### L 500.2500 ####[facility] [address] [place], [address] CO2 [Moles/Vol] 20.2 mmol/L Low 21.0-32.0 [facility] Comment on above: Performed By: #### L 500.2500 ####[facility] [address] [place], [address] Creatinine [Mass/Vol] 0.63 mg/dL Low 0.70-1.20 [facility] Comment on above: Performed By: #### L 500.2500 ####[facility] [address] [place], [address] ECRCL 136.46 ml/min Normal 50-250 [facility] Comment on above: Performed By: #### L 500.2500 ####[facility] [address] [place], [address] GAP 10 Normal 5-15 [facility] Comment on above: Performed By: #### L 500.2500 ####[facility] [address] [place], [address] GFR/1.73 sq M.predicted among non-blacks MDRD (S/P/Bld) [Vol rate/Area] 122 mL/min/{1.73_m2} Normal >60 [facility] Comment on above: Result Comment: mL/m in/1.73m2 CKD-EPI Creatinine Equation (2020) Performed By: #### L 500.2500 ####[facility] [address] [place], [address] Glucose [Mass/Vol] 136 mg/dL High 70-99 [facility] Comment on above: Performed By: #### L 500.2500 ####[facility] [address] [place], [address] Potassium [Moles/Vol] 3.3 mmol/L Normal 3.3-5.1 [facility] Comment on above: Performed By: #### L 500.2500 ####[facility] [address] [place], [address] Sodium [Moles/Vol] 139 mmol/L Normal 133-145 [facility] Comment on above: Performed By: #### L 500.2500 ####[facility] [address] [place], [address] Urea nitrogen [Mass/Vol] 6 mg/dL Normal 4-19 [facility] Comment on above: Performed By: #### L 500.2500 ####[facility] [address] [place], [address] Bedside Glucoseon 03-07-2025 FINGERSTICK GLU 282 mg/dL High 74-106 [facility] Comment on above: Result Comment: EDGAR GEMENT OF PATIENT CARE PER NURSING PROTOCOL Performed By: #### L 501.080 ####[facility] [address] [place], [address] FINGERSTICK GLU 262 mg/dL High 74-106 [facility] Comment on above: Result Comment: EDGAR GEMENT OF PATIENT CARE PER NURSING PROTOCOL Performed By: #### L 501.080 ####[facility] [address] [place], [address] FINGERSTICK GLU 354 mg/dL High 74-106 [facility] Comment on above: Result Comment: EDGAR GEMENT OF PATIENT CARE PER NURSING PROTOCOL Performed By: #### L 501.080 ####[facility] [address] [place], [address] FINGERSTICK GLU 169 mg/dL High 74-106 [facility] Comment on above: Result Comment: EDGAR GEMENT OF PATIENT CARE PER NURSING PROTOCOL Performed By: #### L 501.080 ####[facility] [address] [place], [address] FINGERSTICK GLU 163 mg/dL High 74-106 [facility] Comment on above: Result Comment: EDGAR GEMENT OF PATIENT CARE PER NURSING PROTOCOL Performed By: #### L 501.080 ####[facility] [address] [place], [address] FINGERSTICK GLU 106 mg/dL Normal 74-106 [facility] Comment on above: Result Comment: EDGAR GEMENT OF PATIENT CARE PER NURSING PROTOCOL Performed By: #### L 501.080 ####[facility] [address] [place], [address] FINGERSTICK GLU 88 mg/dL Normal 74-106 [facility] Comment on above: Result Comment: EDGAR GEMENT OF PATIENT CARE PER NURSING PROTOCOL Performed By: #### L 501.080 ####[facility] [address] [place], [address] FINGERSTICK GLU 94 mg/dL Normal 74-106 [facility] Comment on above: Result Comment: EDGAR GEMENT OF PATIENT CARE PER NURSING PROTOCOL Performed By: #### L 501.080 ####[facility] [address] [place], [address] FINGERSTICK GLU 129 mg/dL High 74-106 [facility] Comment on above: Result Comment: EDGAR GEMENT OF PATIENT CARE PER NURSING PROTOCOL Performed By: #### L 501.080 ####[facility] [address] [place], [address] FINGERSTICK GLU 119 mg/dL High 74-106 [facility] Comment on above: Result Comment: EDGAR GEMENT OF PATIENT CARE PER NURSING PROTOCOL Performed By: #### L 501.080 ####[facility] [address] [place], [address] Beta-Hydroxbytyrateon 2024 BETA-HYDROXYBUT 1.2 mmol/L High 0.0-0.3 [facility] Comment on above: Performed By: #### L 501.6901 ####[facility] [address] [place], [address] CBC-Complete Blood Cnt No Di ffon 03-07-2025 Erythrocyte distribution width (RBC) [Ratio] 13.8 % Normal 11.6-14.6 [facility] Comment on above: Performed By: #### L 100.0500 ####[facility] [address] [place], [address] Hematocrit (Bld) [Volume fraction] 33.3 % Low 37-47 [facility] Comment on above: Performed By: #### L 100.0500 ####[facility] [address] [place], [address] Hemoglobin (Bld) [Mass/Vol] 11.0 g/dL Low 12.0-15.0 [facility] Comment on above: Performed By: #### L 100.0500 ####[facility] [address] [place], [address] MCH (RBC) [Entitic mass] 29.6 pg Normal 27.0-32.0 [facility] Comment on above: Performed By: #### L 100.0500 ####[facility] [address] [place], [address] MCHC (RBC) [Mass/Vol] 33.0 g/dL Normal 32-36 [facility] Comment on above: Performed By: #### L 100.0500 ####[facility] [address] [place], [address] MCV (RBC) [Entitic vol] 89.8 fL Normal 81-99 [facility] Comment on above: Performed By: #### L 100.0500 ####[facility] [address] [place], [address] Platelet mean volume (Bld) [Entitic vol] 11.4 fL Normal 6.2-12.0 [facility] Comment on above: Performed By: #### L 100.0500 ####[facility] [address] [place], [address] Platelets (Bld) [#/Vol] 176 10*3/uL Normal 150-450 [facility] Comment on above: Performed By: #### L 100.0500 ####[facility] [address] [place], [address] RBC (Bld) [#/Vol] 3.71 10*6/uL Low 4.2-5.4 [facility] Comment on above: Performed By: #### L 100.0500 ####[facility] [address] [place], [address] RDW SD 45.2 fl High 35.1-43.9 [facility] Comment on above: Performed By: #### L 100.0500 ####[facility] [address] [place], [address] WBC (Bld) [#/Vol] 15.4 10*3/uL High 4.4-11.0 [facility] Comment on above: Performed By: #### L 100.0500 ####[facility] [address] [place], [address] Basic Metabolic Profile (BMP )on 03-06-2025 BUN/CRE 12.3 RATIO Normal - [facility] Comment on above: Order Comment: Call MD with results STAT Performed By: #### L 500.2500 ####[facility] [address] [place], [address] Calcium [Mass/Vol] 8.3 mg/dL Normal 7.6-11.0 [facility] Comment on above: Order Comment: Call MD with results STAT Performed By: #### L 500.2500 ####[facility] [address] [place], [address] Chloride [Moles/Vol] 107 mmol/L Normal 98-108 [facility] Comment on above: Order Comment: Call MD with results STAT Performed By: #### L 500.2500 ####[facility] [address] [place], [address] CO2 [Moles/Vol] 18.9 mmol/L Low 21.0-32.0 [facility] Comment on above: Order Comment: Call MD with results STAT Performed By: #### L 500.2500 ####[facility] [address] [place], [address] Creatinine [Mass/Vol] 0.68 mg/dL Low 0.70-1.20 [facility] Comment on above: Order Comment: Call MD with results STAT Performed By: #### L 500.2500 ####[facility] [address] [place], [address] ECRCL 126.42 ml/min Normal 50-250 [facility] Comment on above: Order Comment: Call MD with results STAT Performed By: #### L 500.2500 ####[facility] [address] [place], [address] GAP 12 Normal 5-15 [facility] Comment on above: Order Comment: Call MD with results STAT Performed By: #### L 500.2500 ####[facility] [address] [place], [address] GFR/1.73 sq M.predicted among non-blacks MDRD (S/P/Bld) [Vol rate/Area] 120 mL/min/{1.73_m2} Normal >60 [facility] Comment on above: Order Comment: Call MD with results STAT Result Comment: mL/m in/1.73m2 CKD-EPI Creatinine Equation (2020) Performed By: #### L 500.2500 ####[facility] [address] [place], [address] Glucose [Mass/Vol] 199 mg/dL High 70-99 [facility] Comment on above: Order Comment: Call MD with results STAT Performed By: #### L 500.2500 ####[facility] [address] [place], [address] Potassium [Moles/Vol] 3.6 mmol/L Normal 3.3-5.1 [facility] Comment on above: Order Comment: Call MD with results STAT Performed By: #### L 500.2500 ####[facility] [address] [place], [address] Sodium [Moles/Vol] 137 mmol/L Normal 133-145 [facility] Comment on above: Order Comment: Call MD with results STAT Performed By: #### L 500.2500 ####[facility] [address] [place], [address] Urea nitrogen [Mass/Vol] 8 mg/dL Normal 4-19 [facility] Comment on above: Order Comment: Call MD with results STAT Performed By: #### L 500.2500 ####[facility] [address] [place], [address] BUN/CRE 13.8 RATIO Normal 10-20 [facility] Comment on above: Order Comment: Call MD with results STAT Performed By: #### L 500.2500 ####[facility] [address] [place], [address] Calcium [Mass/Vol] 8.3 mg/dL Normal 7.6-11.0 [facility] Comment on above: Order Comment: Call MD with results STAT Performed By: #### L 500.2500 ####[facility] [address] [place], [address] Chloride [Moles/Vol] 105 mmol/L Normal 98-108 [facility] Comment on above: Order Comment: Call MD with results STAT Performed By: #### L 500.2500 ####[facility] [address] [place], [address] CO2 [Moles/Vol] 16.5 mmol/L Low 21.0-32.0 [facility] Comment on above: Order Comment: Call MD with results STAT Performed By: #### L 500.2500 ####[facility] [address] [place], [address] Creatinine [Mass/Vol] 0.70 mg/dL Normal 0.70-1.20 [facility] Comment on above: Order Comment: Call MD with results STAT Performed By: #### L 500.2500 ####[facility] [address] [place], [address] ECRCL 122.81 ml/min Normal 50-250 [facility] Comment on above: Order Comment: Call MD with results STAT Performed By: #### L 500.2500 ####[facility] [address] [place], [address] GAP 15 Normal 5-15 [facility] Comment on above: Order Comment: Call MD with results STAT Performed By: #### L 500.2500 ####[facility] [address] [place], [address] GFR/1.73 sq M.predicted among non-blacks MDRD (S/P/Bld) [Vol rate/Area] 119 mL/min/{1.73_m2} Normal >60 [facility] Comment on above: Order Comment: Call MD with results STAT Result Comment: mL/m in/1.73m2 CKD-EPI Creatinine Equation (2020) Performed By: #### L 500.2500 ####[facility] [address] [place], [address] Glucose [Mass/Vol] 239 mg/dL High 70-99 [facility] Comment on above: Order Comment: Call MD with results STAT Performed By: #### L 500.2500 ####[facility] [address] [place], [address] Potassium [Moles/Vol] 4.0 mmol/L Normal 3.3-5.1 [facility] Comment on above: Order Comment: Call MD with results STAT Performed By: #### L 500.2500 ####[facility] [address] [place], [address] Sodium [Moles/Vol] 136 mmol/L Normal 133-145 [facility] Comment on above: Order Comment: Call MD with results STAT Performed By: #### L 500.2500 ####[facility] [address] [place], [address] Urea nitrogen [Mass/Vol] 10 mg/dL Normal 4-19 [facility] Comment on above: Order Comment: Call MD with results STAT Performed By: #### L 500.2500 ####[facility] [address] [place], [address] BUN/CRE 15.9 RATIO Normal 10-20 [facility] Comment on above: Order Comment: Call MD with results STAT Performed By: #### L 500.2500 ####[facility] [address] [place], [address] Calcium [Mass/Vol] 8.3 mg/dL Normal 7.6-11.0 [facility] Comment on above: Order Comment: Call MD with results STAT Performed By: #### L 500.2500 ####[facility] [address] [place], [address] Chloride [Moles/Vol] 105 mmol/L Normal 98-108 [facility] Comment on above: Order Comment: Call MD with results STAT Performed By: #### L 500.2500 ####[facility] [address] [place], [address] CO2 [Moles/Vol] 13.0 mmol/L Low 21.0-32.0 [facility] Comment on above: Order Comment: Call MD with results STAT Performed By: #### L 500.2500 ####[facility] [address] [place], [address] Creatinine [Mass/Vol] 0.71 mg/dL Normal 0.70-1.20 [facility] Comment on above: Order Comment: Call MD with results STAT Performed By: #### L 500.2500 ####[facility] [address] [place], [address] ECRCL 121.08 ml/min Normal 50-250 [facility] Comment on above: Order Comment: Call MD with results STAT Performed By: #### L 500.2500 ####[facility] [address] [place], [address] GAP 18 High 5-15 [facility] Comment on above: Order Comment: Call MD with results STAT Performed By: #### L 500.2500 ####[facility] [address] [place], [address] GFR/1.73 sq M.predicted among non-blacks MDRD (S/P/Bld) [Vol rate/Area] 117 mL/min/{1.73_m2} Normal >60 [facility] Comment on above: Order Comment: Call MD with results STAT Result Comment: mL/m in/1.73m2 CKD-EPI Creatinine Equation (2020) Performed By: #### L 500.2500 ####[facility] [address] [place], [address] Glucose [Mass/Vol] 220 mg/dL High 70-99 [facility] Comment on above: Order Comment: Call MD with results STAT Performed By: #### L 500.2500 ####[facility] [address] [place], [address] Potassium [Moles/Vol] 4.3 mmol/L Normal 3.3-5.1 [facility] Comment on above: Order Comment: Call MD with results STAT Result Comment: Hemo lysis present, Results??could be affected.?? Performed By: #### L 500.2500 ####[facility] [address] [place], [address] Sodium [Moles/Vol] 136 mmol/L Normal 133-145 [facility] Comment on above: Order Comment: Call MD with results STAT Performed By: #### L 500.2500 ####[facility] [address] [place], [address] Urea nitrogen [Mass/Vol] 11 mg/dL Normal 4-19 [facility] Comment on above: Order Comment: Call MD with results STAT Performed By: #### L 500.2500 ####[facility] [address] [place], [address] BUN/CRE 17.5 RATIO Normal 10-20 [facility] Comment on above: Order Comment: Call MD with results STAT Performed By: #### L 500.2500 ####[facility] [address] [place], [address] Calcium [Mass/Vol] 8.8 mg/dL Normal 7.6-11.0 [facility] Comment on above: Order Comment: Call MD with results STAT Performed By: #### L 500.2500 ####[facility] [address] [place], [address] Chloride [Moles/Vol] 102 mmol/L Normal 98-108 [facility] Comment on above: Order Comment: Call MD with results STAT Performed By: #### L 500.2500 ####[facility] [address] [place], [address] CO2 [Moles/Vol] 11.6 mmol/L Low 21.0-32.0 [facility] Comment on above: Order Comment: Call MD with results STAT Performed By: #### L 500.2500 ####[facility] [address] [place], [address] Creatinine [Mass/Vol] 0.85 mg/dL Normal 0.70-1.20 [facility] Comment on above: Order Comment: Call MD with results STAT Performed By: #### L 500.2500 ####[facility] [address] [place], [address] ECRCL 101.14 ml/min Normal 50-250 [facility] Comment on above: Order Comment: Call MD with results STAT Performed By: #### L 500.2500 ####[facility] [address] [place], [address] GAP 22 High 5-15 [facility] Comment on above: Order Comment: Call MD with results STAT Performed By: #### L 500.2500 ####[facility] [address] [place], [address] GFR/1.73 sq M.predicted among non-blacks MDRD (S/P/Bld) [Vol rate/Area] 94 mL/min/{1.73_m2} Normal >60 [facility] Comment on above: Order Comment: Call MD with results STAT Result Comment: mL/m in/1.73m2 CKD-EPI Creatinine Equation (2020) Performed By: #### L 500.2500 ####[facility] [address] [place], [address] Glucose [Mass/Vol] 317 mg/dL High 70-99 [facility] Comment on above: Order Comment: Call MD with results STAT Performed By: #### L 500.2500 ####[facility] [address] [place], [address] Potassium [Moles/Vol] 4.6 mmol/L Normal 3.3-5.1 [facility] Comment on above: Order Comment: Call MD with results STAT Result Comment: Hemo lysis present, Results??could be affected.?? Performed By: #### L 500.2500 ####[facility] [address] [place], [address] Sodium [Moles/Vol] 136 mmol/L Normal 133-145 [facility] Comment on above: Order Comment: Call MD with results STAT Performed By: #### L 500.2500 ####[facility] [address] [place], [address] Urea nitrogen [Mass/Vol] 15 mg/dL Normal 4-19 [facility] Comment on above: Order Comment: Call MD with results STAT Performed By: #### L 500.2500 ####[facility] [address] [place], [address] BUN/CRE 18.2 RATIO Normal 10-20 [facility] Comment on above: Performed By: #### L 500.3400, L100.0100, L501.7300, L501.2450, L500.2500 ####[facility] [address] [place], [address] Calcium [Mass/Vol] 9.3 mg/dL Normal 7.6-11.0 [facility] Comment on above: Performed By: #### L 500.3400, L100.0100, L501.7300, L501.2450, L500.2500 ####[facility] [address] [place], [address] Chloride [Moles/Vol] 95 mmol/L Low 98-108 [facility] Comment on above: Performed By: #### L 500.3400, L100.0100, L501.7300, L501.2450, L500.2500 ####[facility] [address] [place], [address] CO2 [Moles/Vol] 11.4 mmol/L Low 21.0-32.0 [facility] Comment on above: Performed By: #### L 500.3400, L100.0100, L501.7300, L501.2450, L500.2500 ####[facility] [address] [place], [address] Creatinine [Mass/Vol] 0.87 mg/dL Normal 0.70-1.20 [facility] Comment on above: Performed By: #### L 500.3400, L100.0100, L501.7300, L501.2450, L500.2500 ####[facility] [address] [place], [address] ECRCL 98.81 ml/min Normal 50-250 [facility] Comment on above: Performed By: #### L 500.3400, L100.0100, L501.7300, L501.2450, L500.2500 ####[facility] [address] [place], [address] GAP 27 High 5-15 [facility] Comment on above: Performed By: #### L 500.3400, L100.0100, L501.7300, L501.2450, L500.2500 ####[facility] [address] [place], [address] GFR/1.73 sq M.predicted among non-blacks MDRD (S/P/Bld) [Vol rate/Area] 91 mL/min/{1.73_m2} Normal >60 [facility] Comment on above: Result Comment: mL/m in/1.73m2 CKD-EPI Creatinine Equation (2020) Performed By: #### L 500.3400, L100.0100, L501.7300, L501.2450, L500.2500 ####[facility] [address] [place], [address] Glucose [Mass/Vol] 547 mg/dL Invalid Interpretation Code 70-99 [facility] Comment on above: Result Comment: Crit ical Result(s) Called at 0240: by: SUZANNE AGUILERA??Results read back by same. Performed By: #### L 500.3400, L100.0100, L501.7300, L501.2450, L500.2500 ####[facility] [address] [place], [address] Potassium [Moles/Vol] 4.4 mmol/L Normal 3.3-5.1 [facility] Comment on above: Performed By: #### L 500.3400, L100.0100, L501.7300, L501.2450, L500.2500 ####[facility] [address] [place], [address] Sodium [Moles/Vol] 133 mmol/L Normal 133-145 [facility] Comment on above: Performed By: #### L 500.3400, L100.0100, L501.7300, L501.2450, L500.2500 ####[facility] [address] [place], [address] Urea nitrogen [Mass/Vol] 16 mg/dL Normal 4-19 [facility] Comment on above: Performed By: #### L 500.3400, L100.0100, L501.7300, L501.2450, L500.2500 ####[facility] [address] [place], [address] Bedside Glucoseon 03-06-2025 FINGERSTICK GLU 127 mg/dL High 74-106 [facility] Comment on above: Result Comment: EDGAR GEMENT OF PATIENT CARE PER NURSING PROTOCOL Performed By: #### L 501.080 ####[facility] [address] [place], [address] FINGERSTICK GLU 160 mg/dL High 74-106 [facility] Comment on above: Result Comment: EDGAR GEMENT OF PATIENT CARE PER NURSING PROTOCOL Performed By: #### L 501.080 ####[facility] [address] [place], [address] FINGERSTICK GLU 127 mg/dL High 74-106 [facility] Comment on above: Result Comment: EDGAR GEMENT OF PATIENT CARE PER NURSING PROTOCOL Performed By: #### L 501.080 ####[facility] [address] [place], [address] FINGERSTICK GLU 196 mg/dL High 74-106 [facility] Comment on above: Result Comment: EDGAR GEMENT OF PATIENT CARE PER NURSING PROTOCOL Performed By: #### L 501.080 ####[facility] [address] [place], [address] FINGERSTICK GLU 203 mg/dL High 74-106 [facility] Comment on above: Result Comment: Dr Ej foreman FollowedMANAGEMENT OF PATIENT CARE PER NURSING PROTOCOL Performed By: #### L 501.080 ####[facility] [address] [place], [address] FINGERSTICK GLU 231 mg/dL High 74-106 [facility] Comment on above: Result Comment: Dr Ej foreman FollowedMANAGEMENT OF PATIENT CARE PER NURSING PROTOCOL Performed By: #### L 501.080 ####[facility] [address] [place], [address] FINGERSTICK GLU 222 mg/dL High [address] [place] [address] Comment on above: Result Comment: EDGAR GEMENT OF PATIENT CARE PER NURSING PROTOCOL Performed By: #### L 501.080 ####[facility] [address] [place], [address] FINGERSTICK GLU 214 mg/dL High [address] [place] [address] Comment on above: Result Comment: EDGAR GEMENT OF PATIENT CARE PER NURSING PROTOCOL Performed By: #### L 501.080 ####[facility] [address] [place], [address] FINGERSTICK GLU 214 mg/dL High [address] [place] [address] Comment on above: Result Comment: EDGAR GEMENT OF PATIENT CARE PER NURSING PROTOCOL Performed By: #### L 501.080 ####[facility] [address] [place], [address] FINGERSTICK GLU 241 mg/dL High [address] [place] [address] Comment on above: Result Comment: EDGAR GEMENT OF PATIENT CARE PER NURSING PROTOCOL Performed By: #### L 501.080 ####[facility] [address] [place], [address] FINGERSTICK GLU 247 mg/dL High [address] [place] [address] Comment on above: Result Comment: Dr Ej foreman FollowedMANAGEMENT OF PATIENT CARE PER NURSING PROTOCOL Performed By: #### L 501.080 ####[facility] [address] [place], [address] FINGERSTICK GLU 217 mg/dL High [address] [place] [address] Comment on above: Result Comment: EDGAR GEMENT OF PATIENT CARE PER NURSING PROTOCOL Performed By: #### L 501.080 ####[facility] [address] [place], [address] FINGERSTICK GLU 253 mg/dL High [address] [place] [address] Comment on above: Result Comment: EDGAR GEMENT OF PATIENT CARE PER NURSING PROTOCOL Performed By: #### L 501.080 ####[facility] [address] [place], [address] FINGERSTICK GLU 313 mg/dL High -[address] [place] [address] Comment on above: Result Comment: EDGAR GEMENT OF PATIENT CARE PER NURSING PROTOCOL Performed By: #### L 501.080 ####[facility] [address] [place], [address] FINGERSTICK GLU 352 mg/dL High [address] [place] [address] Comment on above: Result Comment: EDGAR GEMENT OF PATIENT CARE PER NURSING PROTOCOL Performed By: #### L 501.080 ####[facility] [address] [place], [address] FINGERSTICK GLU 480 mg/dL Invalid Interpretation Code -[address] [place] [address] Comment on above: Result Comment: EDGAR GEMENT OF PATIENT CARE PER NURSING PROTOCOL Performed By: #### L 501.080 ####[facility] [address] [place], [address] Beta-Hydroxbytyrateon 2024 BETA-HYDROXYBUT 1.7 mmol/L High 0.0-0.3 [facility] Comment on above: Performed By: #### L 501.6901 ####[facility] [address] [place], [address] BETA-HYDROXYBUT 4.2 mmol/L High 0.0-0.3 [facility] Comment on above: Order Comment: FOR N IGHLTY MAINTENANCE, MOVED TO DIFFERENT REQ FOR THATREASON Performed By: #### L 501.6901 ####[facility] [address] [place], [address] CBC W/Diff, Automatedon 07- PLT MORPH CLUMPED Normal [facility] Comment on above: Performed By: #### L 100.0100 ####[facility] [address] [place], [address] RED CELL MORPH NORM C+C Normal NORM C C [facility] Comment on above: Performed By: #### L 100.0100 ####[facility] [address] [place], [address] PLT EST ADEQUATE Normal ADEQ [facility] Comment on above: Performed By: #### L 100.0100 ####[facility] [address] [place], [address] SMEAR COMMENT SCANNED Normal [facility] Comment on above: Performed By: #### L 100.0100 ####[facility] [address] [place], [address] Absolute Neut Normal 2.0-7.7 [facility] Comment on above: Result Comment: This specimen has been REJECTED due to Laboratory criteria:Clotted.GENO has been notified of need of recollection.03/06/25143 [place] Performed By: #### L 500.3400, L100.0100, L501.7300, L501.2450, L500.2500 ####[facility] [address] [place], [address] HCT Normal 37-47 [facility] Comment on above: Result Comment: This specimen has been REJECTED due to Laboratory criteria:Clotted.GENO has been notified of need of recollection.03/06/25143 [place] Performed By: #### L 500.3400, L100.0100, L501.7300, L501.2450, L500.2500 ####[facility] [address] [place], [address] HGB Normal 12.0-15.0 [facility] Comment on above: Result Comment: This specimen has been REJECTED due to Laboratory criteria:Clotted.GENO has been notified of need of recollection.03/06/25143 [place] Performed By: #### L 500.3400, L100.0100, L501.7300, L501.2450, L500.2500 ####[facility] [address] [place], [address] MCH Normal 27.0-32.0 [facility] Comment on above: Result Comment: This specimen has been REJECTED due to Laboratory criteria:Clotted.GENO has been notified of need of recollection.03/06/25143 [place] Performed By: #### L 500.3400, L100.0100, L501.7300, L501.2450, L500.2500 ####[facility] [address] [place], [address] MCHC Normal 32-36 [facility] Comment on above: Result Comment: This specimen has been REJECTED due to Laboratory criteria:Clotted.GENO has been notified of need of recollection.03/06/25143 [place] Performed By: #### L 500.3400, L100.0100, L501.7300, L501.2450, L500.2500 ####[facility] [address] [place], [address] MCV Normal 81-99 [facility] Comment on above: Result Comment: This specimen has been REJECTED due to Laboratory criteria:Clotted.GENO has been notified of need of recollection.03/06/25143 [place] Performed By: #### L 500.3400, L100.0100, L501.7300, L501.2450, L500.2500 ####[facility] [address] [place], [address] NEUT% Normal 47-70 [facility] Comment on above: Result Comment: This specimen has been REJECTED due to Laboratory criteria:Clotted.GENO has been notified of need of recollection.03/06/25143 [place] Performed By: #### L 500.3400, L100.0100, L501.7300, L501.2450, L500.2500 ####[facility] [address] [place], [address] PLT Normal 150-450 [facility] Comment on above: Result Comment: This specimen has been REJECTED due to Laboratory criteria:Clotted.GENO has been notified of need of recollection.03/06/25143 [place] Performed By: #### L 500.3400, L100.0100, L501.7300, L501.2450, L500.2500 ####[facility] [address] [place], [address] RBC Normal 4.2-5.4 [facility] Comment on above: Result Comment: This specimen has been REJECTED due to Laboratory criteria:Clotted.GENO has been notified of need of recollection.03/06/25143 [place] Performed By: #### L 500.3400, L100.0100, L501.7300, L501.2450, L500.2500 ####[facility] [address] [place], [address] RDW CV Normal 11.6-14.6 [facility] Comment on above: Result Comment: This specimen has been REJECTED due to Laboratory criteria:Clotted.GENO has been notified of need of recollection.03/06/25143 [place] Performed By: #### L 500.3400, L100.0100, L501.7300, L501.2450, L500.2500 ####[facility] [address] [place], [address] RDW SD Normal 35.1-43.9 [facility] Comment on above: Result Comment: This specimen has been REJECTED due to Laboratory criteria:Clotted.GENO has been notified of need of recollection.03/06/25143 [place] Performed By: #### L 500.3400, L100.0100, L501.7300, L501.2450, L500.2500 ####[facility] [address] [place], [address] WBC Normal 4.4-11.0 [facility] Comment on above: Result Comment: This specimen has been REJECTED due to Laboratory criteria:Clotted.GENO has been notified of need of recollection.03/06/25143 [place] Performed By: #### L 500.3400, L100.0100, L501.7300, L501.2450, L500.2500 ####[facility] [address] [place], [address] Chest PA and Lateralon 03-06 Chest PA and Lateral Normal [facility] Emergency Department Summary on 03-06-2025 Emergency Department Summary Normal [facility] H AND P Exam - Hospitaliston 03-06-2025 H&P Exam - Hospitalist Normal [facility] Lipaseon 03-06-2025 Lipase [Catalytic activity/Vol] 21 U/L Normal 13-75 [facility] Comment on above: Result Comment: Sulma schmitz note:LIPASE revised reference range effective 22.New Lipase methodology. Expected to produce lower valuesthan the previous assay method.NEW Reference Range: 13 - 75 U/L Performed By: #### L 500.3400, L100.0100, L501.7300, L501.2450, L500.2500 ####[facility] [address] [place], [address] Liver Profileon 03-06-2025 Albumin [Mass/Vol] 4.4 g/dL Normal 3.5-5.0 [facility] Comment on above: Performed By: #### L 500.3400, L100.0100, L501.7300, L501.2450, L500.2500 ####[facility] [address] [place], [address] ALK PHOS 85 U/L Normal 35-104 [facility] Comment on above: Performed By: #### L 500.3400, L100.0100, L501.7300, L501.2450, L500.2500 ####[facility] [address] [place], [address] ALT [Catalytic activity/Vol] 11 U/L Normal <=34 [facility] Comment on above: Performed By: #### L 500.3400, L100.0100, L501.7300, L501.2450, L500.2500 ####[facility] [address] [place], [address] AST [Catalytic activity/Vol] 17 U/L Normal <=31 [facility] Comment on above: Performed By: #### L 500.3400, L100.0100, L501.7300, L501.2450, L500.2500 ####[facility] [address] [place], [address] Bilirubin [Mass/Vol] 0.79 mg/dL Normal 0.00-1.30 [facility] Comment on above: Performed By: #### L 500.3400, L100.0100, L501.7300, L501.2450, L500.2500 ####[facility] [address] [place], [address] Bilirubin.direct [Mass/Vol] 0.35 mg/dL High 0.00-0.30 [facility] Comment on above: Performed By: #### L 500.3400, L100.0100, L501.7300, L501.2450, L500.2500 ####[facility] [address] [place], [address] Globulin (S) [Mass/Vol] 2.5 g/dL Normal 2.2-4.2 [facility] Comment on above: Performed By: #### L 500.3400, L100.0100, L501.7300, L501.2450, L500.2500 ####[facility] [address] [place], [address] T PROT 6.9 g/dL Normal 5.9-8.4 [facility] Comment on above: Performed By: #### L 500.3400, L100.0100, L501.7300, L501.2450, L500.2500 ####[facility] [address] [place], [address] Osmolality, Serumon 03-06-20 25 OSMOLALITY,SER 325 mOsm/KG High 275-295 [facility] Comment on above: Performed By: #### L 500.3400, L100.0100, L501.7300, L501.2450, L500.2500 ####[facility] [address] [place], [address] Venous Blood Gason 5 VBG pCO2 8.2 mmHg Invalid Interpretation Code 41-51 [facility] Comment on above: Performed By: #### L 9000.0810 ####[facility] [address] [place], [address] Bedside Glucoseon 03-05-2025 FINGERSTICK GLU 91 mg/dL Normal 74-106 [facility] Comment on above: Result Comment: EDGAR HUNG OF PATIENT CARE PER NURSING PROTOCOL Performed By: #### L 501.080 ####[facility] [address] [place], [address] Colonoscopy Reporton 025 Colonoscopy Report Normal [facility] EGD Reporton 03-05-2025 EGD Report Normal [facility] Immunohistochemical Stainson 03-05-2025 Immunohistochemical Stains Normal [facility] Comment on above: Performed By: #### P IMHI ####[facility] [address] [place], [address] MR/POSTOP.ANEon 03-05-2025 MR/POSTOP.ANE Normal [facility] MR/RUNKMISF3ge 03-05-2025 MR/POSTOPAN2 Normal [facility] MR/PAT.ANEon 03-04-2025 MR/PAT.ANE Normal [facility] CBC W/Diff, Automatedon 07-0 Absolute Lymph 2.23 X10 3/uL Normal 0.83-4.51 [facility] Comment on above: Performed By: #### L 100.0100, L501.5200, L500.4050 ####[facility] [address] [place], [address] Absolute Neut 9.6 X10 3/uL High 2.0-7.7 [facility] Comment on above: Performed By: #### L 100.0100, L501.5200, L500.4050 ####[facility] [address] [place], [address] Basophils/100 WBC (Bld) 0.4 % Normal 0-1 [facility] Comment on above: Performed By: #### L 100.0100, L501.5200, L500.4050 ####[facility] [address] [place], [address] Eosinophils/100 WBC (Bld) 2.7 % Normal 0-5 [facility] Comment on above: Performed By: #### L 100.0100, L501.5200, L500.4050 ####[facility] [address] [place], [address] Erythrocyte distribution width (RBC) [Ratio] 13.7 % Normal 11.6-14.6 [facility] Comment on above: Performed By: #### L 100.0100, L501.5200, L500.4050 ####[facility] [address] [place], [address] Hematocrit (Bld) [Volume fraction] 43.5 % Normal 37-47 [facility] Comment on above: Performed By: #### L 100.0100, L501.5200, L500.4050 ####[facility] [address] [place], [address] Hemoglobin (Bld) [Mass/Vol] 14.2 g/dL Normal 12.0-15.0 [facility] Comment on above: Performed By: #### L 100.0100, L501.5200, L500.4050 ####[facility] [address] [place], [address] IG% 1.800 High 0.0-0.9 [facility] Comment on above: Result Comment: IG% - Immature Granulocytes (promyelocytes, myelocytes andmetamyelocytes) > 1% indicates that a LEFT SHIFT is Present. Performed By: #### L 100.0100, L501.5200, L500.4050 ####[facility] [address] [place], [address] Lymphocytes/100 WBC (Bld) 17.1 % Low 19-41 [facility] Comment on above: Performed By: #### L 100.0100, L501.5200, L500.4050 ####[facility] [address] [place], [address] MCH (RBC) [Entitic mass] 29.3 pg Normal 27.0-32.0 [facility] Comment on above: Performed By: #### L 100.0100, L501.5200, L500.4050 ####[facility] [address] [place], [address] MCHC (RBC) [Mass/Vol] 32.6 g/dL Normal 32-36 [facility] Comment on above: Performed By: #### L 100.0100, L501.5200, L500.4050 ####[facility] [address] [place], [address] MCV (RBC) [Entitic vol] 89.9 fL Normal 81-99 [facility] Comment on above: Performed By: #### L 100.0100, L501.5200, L500.4050 ####[facility] [address] [place], [address] Monocytes/100 WBC (Bld) 4.6 % Normal 0-10 [facility] Comment on above: Performed By: #### L 100.0100, L501.5200, L500.4050 ####[facility] [address] [place], [address] Neutrophils/100 WBC (Bld) 73.4 % High 47-70 [facility] Comment on above: Performed By: #### L 100.0100, L501.5200, L500.4050 ####[facility] [address] [place], [address] Nucleated RBC (Bld) [#/Vol] 0 10*3/uL Normal 0-5 [facility] Comment on above: Performed By: #### L 100.0100, L501.5200, L500.4050 ####[facility] [address] [place], [address] Platelet mean volume (Bld) [Entitic vol] 12.2 fL High 6.2-12.0 [facility] Comment on above: Performed By: #### L 100.0100, L501.5200, L500.4050 ####[facility] [address] [place], [address] Platelets (Bld) [#/Vol] 201 10*3/uL Normal 150-450 [facility] Comment on above: Performed By: #### L 100.0100, L501.5200, L500.4050 ####[facility] [address] [place], [address] RBC (Bld) [#/Vol] 4.84 10*6/uL Normal 4.2-5.4 [facility] Comment on above: Performed By: #### L 100.0100, L501.5200, L500.4050 ####[facility] [address] [place], [address] RDW SD 44.5 fl High 35.1-43.9 [facility] Comment on above: Performed By: #### L 100.0100, L501.5200, L500.4050 ####[facility] [address] [place], [address] WBC (Bld) [#/Vol] 13.1 10*3/uL High 4.4-11.0 [facility] Comment on above: Performed By: #### L 100.0100, L501.5200, L500.4050 ####[facility] [address] [place], [address] Comprehensive Metabolic Prof dcon 02-25-2025 Albumin [Mass/Vol] 4.2 g/dL Normal 3.5-5.0 [facility] Comment on above: Performed By: #### L 100.0100, L501.5200, L500.4050 ####[facility] [address] [place], [address] Albumin/Globulin [Mass ratio] 1.6 {ratio} Normal 0.9-2.4 [facility] Comment on above: Performed By: #### L 100.0100, L501.5200, L500.4050 ####[facility] [address] [place], [address] ALK PHOS 77 U/L Normal 35-104 [facility] Comment on above: Performed By: #### L 100.0100, L501.5200, L500.4050 ####[facility] [address], [address] ALT [Catalytic activity/Vol] 7 U/L Normal <=34 [facility] Comment on above: Performed By: #### L 100.0100, L501.5200, L500.4050 ####[facility] [address] [place], [address] AST [Catalytic activity/Vol] 15 U/L Normal <=31 [facility] Comment on above: Performed By: #### L 100.0100, L501.5200, L500.4050 ####[facility] [address] [place], [address] Bilirubin [Mass/Vol] 0.71 mg/dL Normal 0.00-1.30 [facility] Comment on above: Performed By: #### L 100.0100, L501.5200, L500.4050 ####[facility] [address] [place], [address] BUN/CRE 18.7 RATIO Normal 10-20 [facility] Comment on above: Performed By: #### L 100.0100, L501.5200, L500.4050 ####[facility] [address] [place], [address] Calcium [Mass/Vol] 9.2 mg/dL Normal 7.6-11.0 [facility] Comment on above: Performed By: #### L 100.0100, L501.5200, L500.4050 ####[facility] [address] [place], [address] Chloride [Moles/Vol] 104 mmol/L Normal 98-108 [facility] Comment on above: Performed By: #### L 100.0100, L501.5200, L500.4050 ####[facility] [address] [place], [address] CO2 [Moles/Vol] 20.2 mmol/L Low 21.0-32.0 [facility] Comment on above: Performed By: #### L 100.0100, L501.5200, L500.4050 ####[facility] [address] [place], [address] Creatinine [Mass/Vol] 0.63 mg/dL Low 0.70-1.20 [facility] Comment on above: Performed By: #### L 100.0100, L501.5200, L500.4050 ####[facility] [address] [place], [address] GAP 14 Normal 5-15 [facility] Comment on above: Performed By: #### L 100.0100, L501.5200, L500.4050 ####[facility] [address] [place], [address] GFR/1.73 sq M.predicted among non-blacks MDRD (S/P/Bld) [Vol rate/Area] 122 mL/min/{1.73_m2} Normal >60 [facility] Comment on above: Result Comment: mL/m in/1.73m2 CKD-EPI Creatinine Equation (2020) Performed By: #### L 100.0100, L501.5200, L500.4050 ####[facility] [address] [place], [address] Globulin (S) [Mass/Vol] 2.6 g/dL Normal 2.2-4.2 [facility] Comment on above: Performed By: #### L 100.0100, L501.5200, L500.4050 ####[facility] [address] [place], [address] Glucose [Mass/Vol] 153 mg/dL High 70-99 [facility] Comment on above: Performed By: #### L 100.0100, L501.5200, L500.4050 ####[facility] [address] [place], [address] Potassium [Moles/Vol] 3.9 mmol/L Normal 3.3-5.1 [facility] Comment on above: Performed By: #### L 100.0100, L501.5200, L500.4050 ####[facility] [address] [place], [address] Sodium [Moles/Vol] 138 mmol/L Normal 133-145 [facility] Comment on above: Performed By: #### L 100.0100, L501.5200, L500.4050 ####[facility] [address] [place], [address] T PROT 6.7 g/dL Normal 5.9-8.4 [facility] Comment on above: Performed By: #### L 100.0100, L501.5200, L500.4050 ####[facility] [address] [place], [address] Urea nitrogen [Mass/Vol] 12 mg/dL Normal - [facility] Comment on above: Performed By: #### L 100.0100, L501.5200, L500.4050 ####[facility] [address] [place], [address] Magnesiumon 02-25-2025 Magnesium [Mass/Vol] 2.2 mg/dL Normal 1.5-2.2 [facility] Comment on above: Performed By: #### L 100.0100, L501.5200, L500.4050 ####[facility] [address] [place], [address] Discharge Instructionon - Discharge Instruction Normal [facility] Basic Metabolic Profile (BMP )on 02-20-2025 BUN Normal 12-14 [facility] Comment on above: Result Comment: Canc elled via OM: Order cancelled - Patient discharged Performed By: #### L 500.2500, L100.0500 ####[facility] [address] [place], [address] BUN/CRE Normal 10-20 [facility] Comment on above: Result Comment: Canc elled via OM: Order cancelled - Patient discharged Performed By: #### L 500.2500, L100.0500 ####[facility] [address] [place], [address] Calcium Normal 7.6-11.0 [facility] Comment on above: Result Comment: Canc elled via OM: Order cancelled - Patient discharged Performed By: #### L 500.2500, L100.0500 ####[facility] [address] [place], [address] CL Normal 98-108 [facility] Comment on above: Result Comment: Canc elled via OM: Order cancelled - Patient discharged Performed By: #### L 500.2500, L100.0500 ####[facility] [address] [place], [address] CO2 Normal 21.0-32.0 [facility] Comment on above: Result Comment: Canc elled via OM: Order cancelled - Patient discharged Performed By: #### L 500.2500, L100.0500 ####[facility] [address] [place], [address] CREAT,SERUM Normal 0.70-1.20 [facility] Comment on above: Result Comment: Canc elled via OM: Order cancelled - Patient discharged Performed By: #### L 500.2500, L100.0500 ####[facility] [address] [place], [address] eGFR Normal >60 [facility] Comment on above: Result Comment: Canc elled via OM: Order cancelled - Patient discharged Performed By: #### L 500.2500, L100.0500 ####[facility] [address] [place], [address] GAP Normal 5-15 [facility] Comment on above: Result Comment: Canc elled via OM: Order cancelled - Patient discharged Performed By: #### L 500.2500, L100.0500 ####[facility] [address] [place], [address] GLU Normal 70-99 [facility] Comment on above: Result Comment: Canc elled via OM: Order cancelled - Patient discharged Performed By: #### L 500.2500, L100.0500 ####[facility] [address] [place], [address] Potassium Normal 3.3-5.1 [facility] Comment on above: Result Comment: Canc elled via OM: Order cancelled - Patient discharged Performed By: #### L 500.2500, L100.0500 ####[facility] [address] [place], [address] Basic Metabolic Profile (BMP) Normal 133-145 [facility] Comment on above: Result Comment: Canc elled via OM: Order cancelled - Patient discharged Performed By: #### L 500.2500, L100.0500 ####[facility] [address] [place], [address] Bedside Glucoseon 02-20-2025 FINGERSTICK GLU 143 mg/dL High 74-106 [facility] Comment on above: Result Comment: EDGAR HUNG OF PATIENT CARE PER NURSING PROTOCOL Performed By: #### L 501.080 ####[facility] [address] [place], [address] CBC-Complete Blood Cnt No Di ffon 02-20-2025 HCT Normal 37-47 [facility] Comment on above: Result Comment: Canc elled via OM: Order cancelled - Patient discharged Performed By: #### L 500.2500, L100.0500 ####[facility] [address] [place], [address] HGB Normal 12.0-15.0 [facility] Comment on above: Result Comment: Canc elled via OM: Order cancelled - Patient discharged Performed By: #### L 500.2500, L100.0500 ####[facility] [address] [place], [address] MCH Normal 27.0-32.0 [facility] Comment on above: Result Comment: Canc elled via OM: Order cancelled - Patient discharged Performed By: #### L 500.2500, L100.0500 ####[facility] [address] [place], [address] MCHC Normal 32-36 [facility] Comment on above: Result Comment: Canc elled via OM: Order cancelled - Patient discharged Performed By: #### L 500.2500, L100.0500 ####[facility] [address] [place], [address] MCV Normal 81-99 [facility] Comment on above: Result Comment: Canc elled via OM: Order cancelled - Patient discharged Performed By: #### L 500.2500, L100.0500 ####[facility] [address] [place], [address] PLT Normal 150-450 [facility] Comment on above: Result Comment: Canc elled via OM: Order cancelled - Patient discharged Performed By: #### L 500.2500, L100.0500 ####[facility] [address] [place], [address] RBC Normal 4.2-5.4 [facility] Comment on above: Result Comment: Canc elled via OM: Order cancelled - Patient discharged Performed By: #### L 500.2500, L100.0500 ####[facility] [address] [place], [address] RDW CV Normal 11.6-14.6 [facility] Comment on above: Result Comment: Canc elled via OM: Order cancelled - Patient discharged Performed By: #### L 500.2500, L100.0500 ####[facility] [address] [place], [address] RDW SD Normal 35.1-43.9 [facility] Comment on above: Result Comment: Canc elled via OM: Order cancelled - Patient discharged Performed By: #### L 500.2500, L100.0500 ####[facility] [address] [place], [address] WBC Normal 4.4-11.0 [facility] Comment on above: Result Comment: Canc elled via OM: Order cancelled - Patient discharged Performed By: #### L 500.2500, L100.0500 ####[facility] [address] [place], [address] Basic Metabolic Profile (BMP )on 02-19-2025 BUN Normal 4-19 [facility] Comment on above: Result Comment: Canc elled via OM: insulin off Performed By: #### L 500.2500 ####[facility] [address] [place], [address] Order Comment: Call MD with results STAT Result Comment: Canc elled via OM: MD Ordered Result Comment: OM C ANCEL REQUEST BUN/CRE Normal 10-20 [facility] Comment on above: Result Comment: Canc elled via OM: insulin off Performed By: #### L 500.2500 ####[facility] [address] [place], [address] Order Comment: Call MD with results STAT Result Comment: Canc elled via OM: MD Ordered Result Comment: OM C ANCEL REQUEST Calcium Normal 7.6-11.0 [facility] Comment on above: Result Comment: Canc elled via OM: insulin off Performed By: #### L 500.2500 ####[facility] [address] [place], [place], [address] Order Comment: Call MD with results STAT Result Comment: Canc elled via OM: MD Ordered Result Comment: OM C ANCEL REQUEST CL Normal 98-108 [facility] Comment on above: Result Comment: Canc elled via OM: insulin off Performed By: #### L 500.2500 ####[facility] [address] [place], [place], [address] Order Comment: Call MD with results STAT Result Comment: Canc elled via OM: MD Ordered Result Comment: OM C ANCEL REQUEST CO2 Normal 21.0-32.0 [facility] Comment on above: Result Comment: Canc elled via OM: insulin off Performed By: #### L 500.2500 ####[facility] [address] [place], [address] Order Comment: Call MD with results STAT Result Comment: Canc elled via OM: MD Ordered Result Comment: OM C ANCEL REQUEST CREAT,SERUM Normal 0.70-1.20 [facility] Comment on above: Result Comment: Canc elled via OM: insulin off Performed By: #### L 500.2500 ####[facility] [address] [place], [address] Order Comment: Call with results STAT Result Comment: Canc elled via OM: MD Ordered Result Comment: OM C ANCEL REQUEST eGFR Normal >60 [facility] Comment on above: Result Comment: Canc elled via OM: insulin off Performed By: #### L 500.2500 ####[facility] [address] [place], [address] Order Comment: Call with results STAT Result Comment: Canc elled via OM: MD Ordered Result Comment: OM C ANCEL REQUEST GAP Normal 5-15 [facility] Comment on above: Result Comment: Canc elled via OM: insulin off Performed By: #### L 500.2500 ####[facility] [address] [place], [address] Order Comment: Call MD with results STAT Result Comment: Canc elled via OM: MD Ordered Result Comment: OM C ANCEL REQUEST GLU Normal 70-99 [facility] Comment on above: Result Comment: Canc elled via OM: insulin off Performed By: #### L 500.2500 ####[facility] [address] [place], [place], [address] Order Comment: Call MD with results STAT Result Comment: Canc elled via OM: MD Ordered Result Comment: OM C ANCEL REQUEST Potassium Normal 3.3-5.1 [facility] Comment on above: Result Comment: Canc elled via OM: insulin off Performed By: #### L 500.2500 ####[facility] [address] [place], [address] Order Comment: Call MD with results STAT Result Comment: Canc elled via OM: MD Ordered Result Comment: OM C ANCEL REQUEST Basic Metabolic Profile (BMP) Normal 133-145 [facility] Comment on above: Result Comment: Canc elled via OM: insulin off Performed By: #### L 500.2500 ####[facility] [address] [place], [address] Order Comment: Call MD with results STAT Result Comment: Canc elled via OM: MD Ordered Result Comment: OM C ANCEL REQUEST BUN/CRE 8.8 RATIO Low 10-20 [facility] Comment on above: Performed By: #### L 500.2500 ####[facility] [address] [place], [address] Calcium [Mass/Vol] 8.5 mg/dL Normal 7.6-11.0 [facility] Comment on above: Performed By: #### L 500.2500 ####[facility] [address] [place], [address] Chloride [Moles/Vol] 107 mmol/L Normal 98-108 [facility] Comment on above: Performed By: #### L 500.2500 ####[facility] [address] [place], [address] CO2 [Moles/Vol] 18.6 mmol/L Low 21.0-32.0 [facility] Comment on above: Performed By: #### L 500.2500 ####[facility] [address] [place], [address] Creatinine [Mass/Vol] 0.63 mg/dL Low 0.70-1.20 [facility] Comment on above: Performed By: #### L 500.2500 ####[facility] [address] [place], [address] ECRCL 136.46 ml/min Normal 50-250 [facility] Comment on above: Performed By: #### L 500.2500 ####[facility] [address] [place], [address] GAP 13 Normal 5-15 [facility] Comment on above: Performed By: #### L 500.2500 ####[facility] [address] [place], [address] GFR/1.73 sq M.predicted among non-blacks MDRD (S/P/Bld) [Vol rate/Area] 122 mL/min/{1.73_m2} Normal >60 [facility] Comment on above: Result Comment: mL/m in/1.73m2 CKD-EPI Creatinine Equation (2020) Performed By: #### L 500.2500 ####[facility] [address] [place], [address] Glucose [Mass/Vol] 249 mg/dL High 70-99 [facility] Comment on above: Performed By: #### L 500.2500 ####[facility] [address] [place], [address] Potassium [Moles/Vol] 4.1 mmol/L Normal 3.3-5.1 [facility] Comment on above: Performed By: #### L 500.2500 ####[facility] [address] [place], [address] Sodium [Moles/Vol] 138 mmol/L Normal 133-145 [facility] Comment on above: Performed By: #### L 500.2500 ####[facility] [address] [place], [address] Urea nitrogen [Mass/Vol] 6 mg/dL Normal 4-19 [facility] Comment on above: Performed By: #### L 500.2500 ####[facility] [address] [place], [address] BUN/CRE 10.8 RATIO Normal 10-20 [facility] Comment on above: Performed By: #### L 500.2500, L501.5200, L100.0100 ####[facility] [address] [place], [address] Calcium [Mass/Vol] 8.0 mg/dL Normal 7.6-11.0 [facility] Comment on above: Performed By: #### L 500.2500, L501.5200, L100.0100 ####[facility] [address] [place], [address] Chloride [Moles/Vol] 112 mmol/L High 98-108 [facility] Comment on above: Performed By: #### L 500.2500, L501.5200, L100.0100 ####[facility] [address] [place], [address] CO2 [Moles/Vol] 17.1 mmol/L Low 21.0-32.0 [facility] Comment on above: Performed By: #### L 500.2500, L501.5200, L100.0100 ####[facility] [address] [place], [address] Creatinine [Mass/Vol] 0.57 mg/dL Low 0.70-1.20 [facility] Comment on above: Performed By: #### L 500.2500, L501.5200, L100.0100 ####[facility] [address] [place], [address] ECRCL 150.82 ml/min Normal 50-250 [facility] Comment on above: Performed By: #### L 500.2500, L501.5200, L100.0100 ####[facility] [address] [place], [address] GAP 10 Normal 5-15 [facility] Comment on above: Performed By: #### L 500.2500, L501.5200, L100.0100 ####[facility] [address] [place], [address] GFR/1.73 sq M.predicted among non-blacks MDRD (S/P/Bld) [Vol rate/Area] 126 mL/min/{1.73_m2} Normal >60 [facility] Comment on above: Result Comment: mL/m in/1.73m2 CKD-EPI Creatinine Equation (2020) Performed By: #### L 500.2500, L501.5200, L100.0100 ####[facility] [address] [place], [address] Glucose [Mass/Vol] 81 mg/dL Normal 70-99 [facility] Comment on above: Performed By: #### L 500.2500, L501.5200, L100.0100 ####[facility] [address] [place], [address] Potassium [Moles/Vol] 4.0 mmol/L Normal 3.3-5.1 [facility] Comment on above: Result Comment: Hemo lysis present, Results??could be affected.?? Performed By: #### L 500.2500, L501.5200, L100.0100 ####[facility] [address] [place], [address] Sodium [Moles/Vol] 139 mmol/L Normal 133-145 [facility] Comment on above: Performed By: #### L 500.2500, L501.5200, L100.0100 ####[facility] [address] [place], [address] Urea nitrogen [Mass/Vol] 6 mg/dL Normal 4-19 [facility] Comment on above: Performed By: #### L 500.2500, L501.5200, L100.0100 ####[facility] [address] [place], [address] BUN Normal 4-19 [facility] Comment on above: Order Comment: Call MD with results STAT Result Comment: OM C ANCEL REQUEST Performed By: #### L 500.2500 ####[facility] [address] [place], [address] BUN/CRE Normal 10-20 [facility] Comment on above: Order Comment: Call MD with results STAT Result Comment: OM C ANCEL REQUEST Performed By: #### L 500.2500 ####[facility] [address] [place], [address] Calcium Normal 7.6-11.0 [facility] Comment on above: Order Comment: Call MD with results STAT Result Comment: OM C ANCEL REQUEST Performed By: #### L 500.2500 ####[facility] [address] [place], [address] CL Normal 98-108 [facility] Comment on above: Order Comment: Call MD with results STAT Result Comment: OM C ANCEL REQUEST Performed By: #### L 500.2500 ####[facility] [address] [place], [address] CO2 Normal 21.0-32.0 [facility] Comment on above: Order Comment: Call MD with results STAT Result Comment: OM C ANCEL REQUEST Performed By: #### L 500.2500 ####[facility] [address] [place], [address] CREAT,SERUM Normal 0.70-1.20 [facility] Comment on above: Order Comment: Call MD with results STAT Result Comment: OM C ANCEL REQUEST Performed By: #### L 500.2500 ####[facility] [address] [place], [address] eGFR Normal >60 [facility] Comment on above: Order Comment: Call MD with results STAT Result Comment: OM C ANCEL REQUEST Performed By: #### L 500.2500 ####[facility] [address] [place], [address] GAP Normal 5-15 [facility] Comment on above: Order Comment: Call MD with results STAT Result Comment: OM C ANCEL REQUEST Performed By: #### L 500.2500 ####[facility] [address] [place], [address] GLU Normal 70-99 [facility] Comment on above: Order Comment: Call MD with results STAT Result Comment: OM C ANCEL REQUEST Performed By: #### L 500.2500 ####[facility] [address] [place], [address] Potassium Normal 3.3-5.1 [facility] Comment on above: Order Comment: Call MD with results STAT Result Comment: OM C ANCEL REQUEST Performed By: #### L 500.2500 ####[facility] [address] [place], [address] Basic Metabolic Profile (BMP) Normal 133-145 [facility] Comment on above: Order Comment: Call MD with results STAT Result Comment: OM C ANCEL REQUEST Performed By: #### L 500.2500 ####[facility] [address] [place], [address] BUN/CRE 13.3 RATIO Normal 10-20 [facility] Comment on above: Order Comment: Call MD with results STAT Performed By: #### L 500.2500 ####[facility] [address] [place], [address] Calcium [Mass/Vol] 8.1 mg/dL Normal 7.6-11.0 [facility] Comment on above: Order Comment: Call MD with results STAT Performed By: #### L 500.2500 ####[facility] [address] [place], [address] Chloride [Moles/Vol] 108 mmol/L Normal 98-108 [facility] Comment on above: Order Comment: Call MD with results STAT Performed By: #### L 500.2500 ####[facility] [address] [place], [address] CO2 [Moles/Vol] 17.8 mmol/L Low 21.0-32.0 [facility] Comment on above: Order Comment: Call MD with results STAT Performed By: #### L 500.2500 ####[facility] [address] [place], [address] Creatinine [Mass/Vol] 0.56 mg/dL Low 0.70-1.20 [facility] Comment on above: Order Comment: Call MD with results STAT Performed By: #### L 500.2500 ####[facility] [address] [place], [address] ECRCL 153.51 ml/min Normal 50-250 [facility] Comment on above: Order Comment: Call MD with results STAT Performed By: #### L 500.2500 ####[facility] [address] [place], [address] GAP 12 Normal 5-15 [facility] Comment on above: Order Comment: Call MD with results STAT Performed By: #### L 500.2500 ####[facility] [address] [place], [address] GFR/1.73 sq M.predicted among non-blacks MDRD (S/P/Bld) [Vol rate/Area] 126 mL/min/{1.73_m2} Normal >60 [facility] Comment on above: Order Comment: Call MD with results STAT Result Comment: mL/m in/1.73m2 CKD-EPI Creatinine Equation (2020) Performed By: #### L 500.2500 ####[facility] [address] [place], [address] Glucose [Mass/Vol] 126 mg/dL High 70-99 [facility] Comment on above: Order Comment: Call MD with results STAT Performed By: #### L 500.2500 ####[facility] [address] [place], [address] Potassium [Moles/Vol] 3.7 mmol/L Normal 3.3-5.1 [facility] Comment on above: Order Comment: Call MD with results STAT Performed By: #### L 500.2500 ####[facility] [address] [place], [address] Sodium [Moles/Vol] 137 mmol/L Normal 133-145 [facility] Comment on above: Order Comment: Call MD with results STAT Performed By: #### L 500.2500 ####[facility] [address] [place], [address] Urea nitrogen [Mass/Vol] 7 mg/dL Normal 4-19 [facility] Comment on above: Order Comment: Call MD with results STAT Performed By: #### L 500.2500 ####[facility] [address] [place], [address] Bedside Glucoseon 02-19-2025 FINGERSTICK GLU 141 mg/dL High 74-106 [facility] Comment on above: Result Comment: EDGAR HUNG OF PATIENT CARE PER NURSING PROTOCOL Performed By: #### L 501.080 ####[facility] [address] [place], [address] FINGERSTICK GLU 222 mg/dL High 74-106 [facility] Comment on above: Result Comment: EDGAR GEMENT OF PATIENT CARE PER NURSING PROTOCOL Performed By: #### L 501.080 ####[facility] [address] [place], [address] FINGERSTICK GLU 242 mg/dL High 74-106 [facility] Comment on above: Result Comment: EDGAR GEMENT OF PATIENT CARE PER NURSING PROTOCOL Performed By: #### L 501.080 ####[facility] [address] [place], [address] FINGERSTICK GLU 146 mg/dL High 74-106 [facility] Comment on above: Result Comment: EDGAR GEMENT OF PATIENT CARE PER NURSING PROTOCOL Performed By: #### L 501.080 ####[facility] [address] [place], [address] FINGERSTICK GLU 59 mg/dL Low 74-106 [facility] Comment on above: Result Comment: EDGAR GEMENT OF PATIENT CARE PER NURSING PROTOCOL Performed By: #### L 501.080 ####[facility] [address] [place], [address] FINGERSTICK GLU 93 mg/dL Normal 74-106 [facility] Comment on above: Result Comment: EDGAR GEMENT OF PATIENT CARE PER NURSING PROTOCOL Performed By: #### L 501.080 ####[facility] [address] [place], [address] FINGERSTICK GLU 143 mg/dL High 74-106 [facility] Comment on above: Result Comment: EDGAR GEMENT OF PATIENT CARE PER NURSING PROTOCOL Performed By: #### L 501.080 ####[facility] [address] [place], [address] FINGERSTICK GLU 59 mg/dL Low 74-106 [facility] Comment on above: Result Comment: EDGAR GEMENT OF PATIENT CARE PER NURSING PROTOCOL Performed By: #### L 501.080 ####[facility] [address] [place], [address] FINGERSTICK GLU 76 mg/dL Normal 74-106 [facility] Comment on above: Result Comment: EDGAR GEMENT OF PATIENT CARE PER NURSING PROTOCOL Performed By: #### L 501.080 ####[facility] [address] [place], [address] FINGERSTICK GLU 89 mg/dL Normal 74-106 [facility] Comment on above: Result Comment: EDGAR GEMENT OF PATIENT CARE PER NURSING PROTOCOL Performed By: #### L 501.080 ####[facility] [address] [place], [address] FINGERSTICK GLU 118 mg/dL High 74-106 [facility] Comment on above: Result Comment: EDGAR GEMENT OF PATIENT CARE PER NURSING PROTOCOL Performed By: #### L 501.080 ####[facility] [address] [place], [address] FINGERSTICK GLU 111 mg/dL High 74-106 [facility] Comment on above: Result Comment: EDGAR GEMENT OF PATIENT CARE PER NURSING PROTOCOL Performed By: #### L 501.080 ####[facility] [address] [place], [address] FINGERSTICK GLU 123 mg/dL High 74-106 [facility] Comment on above: Result Comment: EDGAR GEMENT OF PATIENT CARE PER NURSING PROTOCOL Performed By: #### L 501.080 ####[facility] [address] [place], [address] CBC W/Diff, Automatedon 06-2 -2024 Absolute Lymph 1.08 X10 3/uL Normal 0.83-4.51 [facility] Comment on above: Performed By: #### L 500.2500, L501.5200, L100.0100 ####[facility] [address] [place], [address] Absolute Neut 18.3 X10 3/uL High 2.0-7.7 [facility] Comment on above: Performed By: #### L 500.2500, L501.5200, L100.0100 ####[facility] [address] [place], [address] Basophils/100 WBC (Bld) 0.2 % Normal 0-1 [facility] Comment on above: Performed By: #### L 500.2500, L501.5200, L100.0100 ####[facility] [address] [place], [address] Eosinophils/100 WBC (Bld) 0.0 % Normal 0-5 [facility] Comment on above: Performed By: #### L 500.2500, L501.5200, L100.0100 ####[facility] [address] [place], [address] Erythrocyte distribution width (RBC) [Ratio] 13.4 % Normal 11.6-14.6 [facility] Comment on above: Performed By: #### L 500.2500, L501.5200, L100.0100 ####[facility] [address] [place], [address] Hematocrit (Bld) [Volume fraction] 35.4 % Low 37-47 [facility] Comment on above: Performed By: #### L 500.2500, L501.5200, L100.0100 ####[facility] [address] [place], [address] Hemoglobin (Bld) [Mass/Vol] 11.8 g/dL Low 12.0-15.0 [facility] Comment on above: Performed By: #### L 500.2500, L501.5200, L100.0100 ####[facility] [address] [place], [address] IG% 1.000 High 0.0-0.9 [facility] Comment on above: Result Comment: IG% - Immature Granulocytes (promyelocytes, myelocytes andmetamyelocytes) > 1% indicates that a LEFT SHIFT is Present. Performed By: #### L 500.2500, L501.5200, L100.0100 ####[facility] [address] [place], [address] Lymphocytes/100 WBC (Bld) 5.3 % Low 19-41 [facility] Comment on above: Performed By: #### L 500.2500, L501.5200, L100.0100 ####[facility] [address] [place], [address] MCH (RBC) [Entitic mass] 29.7 pg Normal 27.0-32.0 [facility] Comment on above: Performed By: #### L 500.2500, L501.5200, L100.0100 ####[facility] [address] [place], [address] MCHC (RBC) [Mass/Vol] 33.3 g/dL Normal 32-36 [facility] Comment on above: Performed By: #### L 500.2500, L501.5200, L100.0100 ####[facility] [address] [place], [address] MCV (RBC) [Entitic vol] 89.2 fL Normal 81-99 [facility] Comment on above: Performed By: #### L 500.2500, L501.5200, L100.0100 ####[facility] [address] [place], [address] Monocytes/100 WBC (Bld) 4.1 % Normal 0-10 [facility] Comment on above: Performed By: #### L 500.2500, L501.5200, L100.0100 ####[facility] [address] [place], [address] Neutrophils/100 WBC (Bld) 89.4 % High 47-70 [facility] Comment on above: Performed By: #### L 500.2500, L501.5200, L100.0100 ####[facility] [address] [place], [address] Nucleated RBC (Bld) [#/Vol] 0 10*3/uL Normal 0-5 [facility] Comment on above: Performed By: #### L 500.2500, L501.5200, L100.0100 ####[facility] [address] [place], [address] Platelet mean volume (Bld) [Entitic vol] 11.5 fL Normal 6.2-12.0 [facility] Comment on above: Performed By: #### L 500.2500, L501.5200, L100.0100 ####[facility] [address] [place], [address] Platelets (Bld) [#/Vol] 188 10*3/uL Normal 150-450 [facility] Comment on above: Performed By: #### L 500.2500, L501.5200, L100.0100 ####[facility] [address] [place], [address] RBC (Bld) [#/Vol] 3.97 10*6/uL Low 4.2-5.4 [facility] Comment on above: Performed By: #### L 500.2500, L501.5200, L100.0100 ####[facility] [address] [place], [address] RDW SD 43.9 fl Normal 35.1-43.9 [facility] Comment on above: Performed By: #### L 500.2500, L501.5200, L100.0100 ####[facility] [address] [place], [address] WBC (Bld) [#/Vol] 20.5 10*3/uL High 4.4-11.0 [facility] Comment on above: Performed By: #### L 500.2500, L501.5200, L100.0100 ####[facility] [address] [place], [address] Magnesiumon 02-19-2025 Magnesium [Mass/Vol] 2.9 mg/dL High 1.5-2.2 [facility] Comment on above: Performed By: #### L 500.2500, L501.5200, L100.0100 ####[facility] [address] [place], [address] 12 Lead EKGon 02-18-2025 12 Lead EKG Normal [facility] Basic Metabolic Profile (BMP )on 02-18-2025 BUN/CRE 16.4 RATIO Normal 10-20 [facility] Comment on above: Order Comment: Call MD with results STAT Performed By: #### L 500.2500 ####[facility] [address] [place], [address] Calcium [Mass/Vol] 7.8 mg/dL Normal 7.6-11.0 [facility] Comment on above: Order Comment: Call MD with results STAT Performed By: #### L 500.2500 ####[facility] [address] [place], [address] Chloride [Moles/Vol] 107 mmol/L Normal 98-108 [facility] Comment on above: Order Comment: Call MD with results STAT Performed By: #### L 500.2500 ####[facility] [address] [place], [address] CO2 [Moles/Vol] 17.2 mmol/L Low 21.0-32.0 [facility] Comment on above: Order Comment: Call MD with results STAT Performed By: #### L 500.2500 ####[facility] [address] [place], [address] Creatinine [Mass/Vol] 0.57 mg/dL Low 0.70-1.20 [facility] Comment on above: Order Comment: Call MD with results STAT Performed By: #### L 500.2500 ####[facility] [address] [place], [address] ECRCL 150.82 ml/min Normal 50-250 [facility] Comment on above: Order Comment: Call MD with results STAT Performed By: #### L 500.2500 ####[facility] [address] [place], [address] GAP 12 Normal 5-15 [facility] Comment on above: Order Comment: Call MD with results STAT Performed By: #### L 500.2500 ####[facility] [address] [place], [address] GFR/1.73 sq M.predicted among non-blacks MDRD (S/P/Bld) [Vol rate/Area] 125 mL/min/{1.73_m2} Normal >60 [facility] Comment on above: Order Comment: Call MD with results STAT Result Comment: mL/m in/1.73m2 CKD-EPI Creatinine Equation (2020) Performed By: #### L 500.2500 ####[facility] [address] [place], [address] Glucose [Mass/Vol] 111 mg/dL High 70-99 [facility] Comment on above: Order Comment: Call MD with results STAT Performed By: #### L 500.2500 ####[facility] [address] [place], [address] Potassium [Moles/Vol] 3.9 mmol/L Normal 3.3-5.1 [facility] Comment on above: Order Comment: Call MD with results STAT Performed By: #### L 500.2500 ####[facility] [address] [place], [address] Sodium [Moles/Vol] 137 mmol/L Normal 133-145 [facility] Comment on above: Order Comment: Call MD with results STAT Performed By: #### L 500.2500 ####[facility] [address] [place], [address] Urea nitrogen [Mass/Vol] 9 mg/dL Normal 4-19 [facility] Comment on above: Order Comment: Call MD with results STAT Performed By: #### L 500.2500 ####[facility] [address] [place], [address] Bedside Glucoseon 02-18-2025 FINGERSTICK GLU 125 mg/dL High 74-106 [facility] Comment on above: Result Comment: EDGAR GEMENT OF PATIENT CARE PER NURSING PROTOCOL Performed By: #### L 501.080 ####[facility] [address] [place], [address] FINGERSTICK GLU 121 mg/dL High 74-106 [facility] Comment on above: Result Comment: EDGAR GEMENT OF PATIENT CARE PER NURSING PROTOCOL Performed By: #### L 501.080 ####[facility] [address] [place], [address] FINGERSTICK GLU 93 mg/dL Normal 74-106 [facility] Comment on above: Result Comment: EDGAR GEMENT OF PATIENT CARE PER NURSING PROTOCOL Performed By: #### L 501.080 ####[facility] [address] [place], [address] FINGERSTICK GLU 97 mg/dL Normal 74-106 [facility] Comment on above: Result Comment: EDGAR GEMENT OF PATIENT CARE PER NURSING PROTOCOL Performed By: #### L 501.080 ####[facility] [address] [place], [address] FINGERSTICK GLU 144 mg/dL High 74-106 [facility] Comment on above: Result Comment: EDGAR GEMENT OF PATIENT CARE PER NURSING PROTOCOL Performed By: #### L 501.080 ####[facility] [address] [place], [address] FINGERSTICK GLU 265 mg/dL High 74-106 [facility] Comment on above: Result Comment: EDGAR HUNG OF PATIENT CARE PER NURSING PROTOCOL Performed By: #### L 501.080 ####[facility] [address] [place], [address] Beta-Hydroxbytyrateon 2024 BETA-HYDROXYBUT 2.2 mmol/L High 0.0-0.3 [facility] Comment on above: Performed By: #### L 501.6901 ####[facility] [address] [place], [address] CBC W/Diff, Automatedon 01-27 Absolute Lymph 0.88 X10 3/uL Normal 0.83-4.51 [facility] Comment on above: Performed By: #### L 500.4050, L100.0100, L700.6800, L501.2450, L501.5200 ####[facility] [address] [place], [address] Absolute Neut 17.1 X10 3/uL High 2.0-7.7 [facility] Comment on above: Performed By: #### L 500.4050, L100.0100, L700.6800, L501.2450, L501.5200 ####[facility] [address] [place], [address] Basophils/100 WBC (Bld) 0.5 % Normal 0-1 [facility] Comment on above: Performed By: #### L 500.4050, L100.0100, L700.6800, L501.2450, L501.5200 ####[facility] [address] [place], [address] Eosinophils/100 WBC (Bld) 0.0 % Normal 0-5 [facility] Comment on above: Performed By: #### L 500.4050, L100.0100, L700.6800, L501.2450, L501.5200 ####[facility] [address] [place], [address] Erythrocyte distribution width (RBC) [Ratio] 13.3 % Normal 11.6-14.6 [facility] Comment on above: Performed By: #### L 500.4050, L100.0100, L700.6800, L501.2450, L501.5200 ####[facility] [address] [place], [address] Hematocrit (Bld) [Volume fraction] 41.2 % Normal 37-47 [facility] Comment on above: Performed By: #### L 500.4050, L100.0100, L700.6800, L501.2450, L501.5200 ####[facility] [address] [place], [address] Hemoglobin (Bld) [Mass/Vol] 13.7 g/dL Normal 12.0-15.0 [facility] Comment on above: Performed By: #### L 500.4050, L100.0100, L700.6800, L501.2450, L501.5200 ####[facility] [address] [place], [address] IG% 1.600 High 0.0-0.9 [facility] Comment on above: Result Comment: IG% - Immature Granulocytes (promyelocytes, myelocytes andmetamyelocytes) > 1% indicates that a LEFT SHIFT is Present. Performed By: #### L 500.4050, L100.0100, L700.6800, L501.2450, L501.5200 ####[facility] [address] [place], [address] Lymphocytes/100 WBC (Bld) 4.7 % Low 19-41 [facility] Comment on above: Performed By: #### L 500.4050, L100.0100, L700.6800, L501.2450, L501.5200 ####[facility] [address] [place], [address] MCH (RBC) [Entitic mass] 29.3 pg Normal 27.0-32.0 [facility] Comment on above: Performed By: #### L 500.4050, L100.0100, L700.6800, L501.2450, L501.5200 ####[facility] [address] [place], [address] MCHC (RBC) [Mass/Vol] 33.3 g/dL Normal 32-36 [facility] Comment on above: Performed By: #### L 500.4050, L100.0100, L700.6800, L501.2450, L501.5200 ####[facility] [address] [place], [address] MCV (RBC) [Entitic vol] 88.0 fL Normal 81-99 [facility] Comment on above: Performed By: #### L 500.4050, L100.0100, L700.6800, L501.2450, L501.5200 ####[facility] [address] [place], [address] Monocytes/100 WBC (Bld) 2.3 % Normal 0-10 [facility] Comment on above: Performed By: #### L 500.4050, L100.0100, L700.6800, L501.2450, L501.5200 ####[facility] [address] [place], [address] Neutrophils/100 WBC (Bld) 90.9 % High 47-70 [facility] Comment on above: Performed By: #### L 500.4050, L100.0100, L700.6800, L501.2450, L501.5200 ####[facility] [address] [place], [address] Nucleated RBC (Bld) [#/Vol] 0 10*3/uL Normal 0-5 [facility] Comment on above: Performed By: #### L 500.4050, L100.0100, L700.6800, L501.2450, L501.5200 ####[facility] [address] [place], [address] Platelet mean volume (Bld) [Entitic vol] 11.8 fL Normal 6.2-12.0 [facility] Comment on above: Performed By: #### L 500.4050, L100.0100, L700.6800, L501.2450, L501.5200 ####[facility] [address] [place], [address] Platelets (Bld) [#/Vol] 226 10*3/uL Normal 150-450 [facility] Comment on above: Performed By: #### L 500.4050, L100.0100, L700.6800, L501.2450, L501.5200 ####[facility] [address] [place], [address] RBC (Bld) [#/Vol] 4.68 10*6/uL Normal 4.2-5.4 [facility] Comment on above: Performed By: #### L 500.4050, L100.0100, L700.6800, L501.2450, L501.5200 ####[facility] [address] [place], [address] RDW SD 42.8 fl Normal 35.1-43.9 [facility] Comment on above: Performed By: #### L 500.4050, L100.0100, L700.6800, L501.2450, L501.5200 ####[facility] [address] [place], [address] WBC (Bld) [#/Vol] 18.8 10*3/uL High 4.4-11.0 [facility] Comment on above: Performed By: #### L 500.4050, L100.0100, L700.6800, L501.2450, L501.5200 ####[facility] [address] [place], [address] Comprehensive Metabolic Prof ilon 02-18-2025 Albumin [Mass/Vol] 4.3 g/dL Normal 3.5-5.0 [facility] Comment on above: Performed By: #### L 500.4050, L100.0100, L700.6800, L501.2450, L501.5200 ####[facility] [address] [place], [address] Albumin/Globulin [Mass ratio] 1.7 {ratio} Normal 0.9-2.4 [facility] Comment on above: Performed By: #### L 500.4050, L100.0100, L700.6800, L501.2450, L501.5200 ####[facility] [address] [place], [address] ALK PHOS 85 U/L Normal 35-104 [facility] Comment on above: Performed By: #### L 500.4050, L100.0100, L700.6800, L501.2450, L501.5200 ####[facility] [address] [place], [address] ALT [Catalytic activity/Vol] 11 U/L Normal <=34 [facility] Comment on above: Performed By: #### L 500.4050, L100.0100, L700.6800, L501.2450, L501.5200 ####[facility] [address] [place], [address] AST [Catalytic activity/Vol] 17 U/L Normal <=31 [facility] Comment on above: Performed By: #### L 500.4050, L100.0100, L700.6800, L501.2450, L501.5200 ####[facility] [address] [place], [address] Bilirubin [Mass/Vol] 0.79 mg/dL Normal 0.00-1.30 [facility] Comment on above: Performed By: #### L 500.4050, L100.0100, L700.6800, L501.2450, L501.5200 ####[facility] [address] [place], [address] BUN/CRE 15.1 RATIO Normal 10-20 [facility] Comment on above: Performed By: #### L 500.4050, L100.0100, L700.6800, L501.2450, L501.5200 ####[facility] [address] [place], [address] Calcium [Mass/Vol] 9.6 mg/dL Normal 7.6-11.0 [facility] Comment on above: Performed By: #### L 500.4050, L100.0100, L700.6800, L501.2450, L501.5200 ####[facility] [address] [place], [address] Chloride [Moles/Vol] 101 mmol/L Normal 98-108 [facility] Comment on above: Performed By: #### L 500.4050, L100.0100, L700.6800, L501.2450, L501.5200 ####[facility] [address] [place], [address] CO2 [Moles/Vol] 15.4 mmol/L Low 21.0-32.0 [facility] Comment on above: Performed By: #### L 500.4050, L100.0100, L700.6800, L501.2450, L501.5200 ####[facility] [address] [place], [address] Creatinine [Mass/Vol] 0.73 mg/dL Normal 0.70-1.20 [facility] Comment on above: Performed By: #### L 500.4050, L100.0100, L700.6800, L501.2450, L501.5200 ####[facility] [address] [place], [address] GAP 20 High 5-15 [facility] Comment on above: Performed By: #### L 500.4050, L100.0100, L700.6800, L501.2450, L501.5200 ####[facility] [address] [place], [address] GFR/1.73 sq M.predicted among non-blacks MDRD (S/P/Bld) [Vol rate/Area] 114 mL/min/{1.73_m2} Normal >60 [facility] Comment on above: Result Comment: mL/m in/1.73m2 CKD-EPI Creatinine Equation (2020) Performed By: #### L 500.4050, L100.0100, L700.6800, L501.2450, L501.5200 ####[facility] [address] [place], [address] Globulin (S) [Mass/Vol] 2.6 g/dL Normal 2.2-4.2 [facility] Comment on above: Performed By: #### L 500.4050, L100.0100, L700.6800, L501.2450, L501.5200 ####[facility] [address] [place], [address] Glucose [Mass/Vol] 324 mg/dL High 70-99 [facility] Comment on above: Performed By: #### L 500.4050, L100.0100, L700.6800, L501.2450, L501.5200 ####[facility] [address] [place], [address] Potassium [Moles/Vol] 4.2 mmol/L Normal 3.3-5.1 [facility] Comment on above: Performed By: #### L 500.4050, L100.0100, L700.6800, L501.2450, L501.5200 ####[facility] [address] [place], [address] Sodium [Moles/Vol] 136 mmol/L Normal 133-145 [facility] Comment on above: Performed By: #### L 500.4050, L100.0100, L700.6800, L501.2450, L501.5200 ####[facility] [address] [place], [address] T PROT 6.9 g/dL Normal 5.9-8.4 [facility] Comment on above: Performed By: #### L 500.4050, L100.0100, L700.6800, L501.2450, L501.5200 ####[facility] [address] [place], [address] Urea nitrogen [Mass/Vol] 11 mg/dL Normal 4-19 [facility] Comment on above: Performed By: #### L 500.4050, L100.0100, L700.6800, L501.2450, L501.5200 ####[facility] [address] [place], [address] Emergency Department Summary on 02-18-2025 Emergency Department Summary Normal [facility] H AND P Exam - Hospitaliston 02-18-2025 H&P Exam - Hospitalist Normal [facility] Lipaseon 02-18-2025 Lipase [Catalytic activity/Vol] 9 U/L Low 13-75 [facility] Comment on above: Result Comment: Sulma schmitz note:LIPASE revised reference range effective 22.New Lipase methodology. Expected to produce lower valuesthan the previous assay method.NEW Reference Range: 13 - 75 U/L Performed By: #### L 500.4050, L100.0100, L700.6800, L501.2450, L501.5200 ####[facility] [address] [place], [address] Magnesiumon 02-18-2025 Magnesium [Mass/Vol] 1.5 mg/dL Normal 1.5-2.2 [facility] Comment on above: Performed By: #### L 500.4050, L100.0100, L700.6800, L501.2450, L501.5200 ####[facility] [address] [place], [address] ,Serum,hCG Quali.on 02-18-2025 HCG, SERUM QUAL Negative Normal [facility] Comment on above: Performed By: #### L 500.4050, L100.0100, L700.6800, L501.2450, L501.5200 ####[facility] [address] [place], [address] Urinalysis, Completeon 02-18 RBC 0-5 SEEN Normal 0-5 [facility] Comment on above: Order Comment: CLEAN CATCH Performed By: #### L 400.0001 ####[facility] [address] [place], [address] WBC 0-5 SEEN Normal 0-5 [facility] Comment on above: Order Comment: CLEAN CATCH Performed By: #### L 400.0001 ####[facility] [address] [place], [address] EPI,SQUAMOUS 5-10 SEEN Normal 5-10 [facility] Comment on above: Order Comment: CLEAN CATCH Performed By: #### L 400.0001 ####[facility] [address] [place], [address] BACTERIA 0 SEEN Normal None Seen [facility] Comment on above: Order Comment: CLEAN CATCH Performed By: #### L 400.0001 ####[facility] [address] [place], [address] Mucus Ql (Urine sed) 0 SEEN Normal [facility] Comment on above: Order Comment: CLEAN CATCH Performed By: #### L 400.0001 ####[facility] [address] [place], [address] Venous Blood Gason 5 Blood Gas Type ISABELLE [facility] Comment on above: Performed By: #### L 9000.0810 ####[facility] [address] [place], [address] CO2 [Moles/Vol] 22 mmol/L Low 23-33 [facility] Comment on above: Performed By: #### L 9000.0810 ####[facility] [address] [place], [address] HCO3 (Bld) [Moles/Vol] 22 mmol/L Normal 22-26 [facility] Comment on above: Performed By: #### L 9000.0810 ####[facility] [address] [place], [address] O2 Delivery Dev Not entered [facility] Comment on above: Performed By: #### L 9000.0810 ####[facility] [address] [place], [address] SITE Not entered [facility] Comment on above: Performed By: #### L 9000.0810 ####[facility] [address] [place], [address] VBG BE -1 mmol/L Normal -1.0-3.5 [facility] Comment on above: Performed By: #### L 9000.0810 ####[facility] [address] [place], [address] VBG pCO2 26.5 mmHg Low 41-51 [facility] Comment on above: Performed By: #### L 9000.0810 ####[facility] [address] [place], [address] VBG pH 7.52 High 7.32-7.42 [facility] Comment on above: Performed By: #### L 9000.0810 ####[facility] [address] [place], [address] VBG PO2 29 mmHg Normal 25-40 [facility] Comment on above: Performed By: #### L 9000.0810 ####[facility] [address] [place], [address] VBG SO2 64 Normal 50-70 [facility] Comment on above: Performed By: #### L 9000.0810 ####[facility] [address] [place], [address] Hepatitis A AB, Totalon 06-1 HEPATITIS A,TOT Positive Abnormal Negative [facility] Comment on above: Order Comment: KATHY CALDERON ORDERED BMP,LIVER,CBCD,PT/INR,TSH,HEBSAG,HECAB,HEAT,HEP B CORE, AND ELF.ANTONIA ORDERED CMP AND A1C Result Comment: Comm ent: The HAV total antibody assay detects both IgG andIgM but does not differentiate between them. A negativeresult suggests susceptibility to infection. A positiveresult could be due to vaccination, previously resolvedinfection or active infection. Testing for HAV IgM shouldbe performed if active HAV infection is suspected. [facility] profiles that will automatically reflex positive HAVtotal antibody results to IgM (e.g., panel #[id number] HAVAntibody w/ Rfx).Performed at: [facility] [address] [place], [place] [id number] Director: Estbean Jin PhD, Phone: [phone] Performed By: #### L 3890.6102, L3100.0300, L3410.9992, L500.3400, L3890.6301, L500.2500, L501.9520, L3890.6202, L501.9985, L100.0100, L300.3900, L3100.0460 ####[facility] [address] [place], [address] Hepatitis B Core Ab Totalon 02-05-2025 HEP B CORE,TOT Negative Normal Negative [facility] Comment on above: Order Comment: KATHY CALDERON ORDERED BMP,LIVER,CBCD,PT/INR,TSH,HEBSAG,HECAB,HEAT,HEP B CORE, AND ELF.ANTONIA ORDERED CMP AND A1C Performed By: #### L 3890.6102, L3100.0300, L3410.9992, L500.3400, L3890.6301, L500.2500, L501.9520, L3890.6202, L501.9985, L100.0100, L300.3900, L3100.0460 ####[facility] [address] [place], [address] L3410.9992on 02-05-2025 [facility] Misc. COMMENT Normal . [facility] Comment on above: Order Comment: KATHY CALDERON ORDERED BMP,LIVER,CBCD,PT/INR,TSH,HEBSAG,HECAB,HEAT,HEP B CORE, AND ELF.ANTONIA ORDERED CMP AND [id number] Result Comment: Test Ordered: 063796 Enhanced Liver Fibrosis (ELF)ELF(TM) Score 8.11 BN Reference Range: <9.80ELF(TM) Score Interpretation:Risk cut-offs to assess the likelihood of progressionto cirrhosis and liver-related clinical events within3.9 years following baseline ELF score (IQR: 14.0-22.4months)*: Lower risk < 9.80 Mid risk 9.80 - 11.29 Higher risk >11.29Note: The ELF(TM) Score is a unitless numerical value.*Hamlet SA, Franco VW, Sophie T, et al. Selonsertibfor patients with bridging fibrosis or compensatedcirrhosis due to MARLOW: Results from randomized phaseIII STELLAR trials. J Hepatol. 2020 Feb;73(1):26-39.Performed at: [facility] [address] [id number] Director: Brian Rouse MD, Phone: [phone] at: [facility] [address] [id number] Director: Esteban Jin PhD, Phone: [phone] Performed By: #### L 3890.6102, L3100.0300, L3410.9992, L500.3400, L3890.6301, L500.2500, L501.9520, L3890.6202, L501.9985, L100.0100, L300.3900, L3100.0460 ####[facility] [address] [place] [place], [address] Basic Metabolic Profile (BMP )on 02-03-2025 BUN/CRE 12.4 RATIO Normal 10-20 [facility] Comment on above: Order Comment: KATHY CALDERON ORDERED BMP,LIVER,CBCD,PT/INR,TSH,HEBSAG,HECAB,HEAT,HEP B CORE, AND ELF.ANTONIA ORDERED CMP AND A1C Performed By: #### L 3890.6102, L3100.0300, L3410.9992, L500.3400, L3890.6301, L500.2500, L501.9520, L3890.6202, L501.9985, L100.0100, L300.3900, L3100.0460 ####[facility] [address], [address] Calcium [Mass/Vol] 9.7 mg/dL Normal 7.6-11.0 [facility] Comment on above: Order Comment: KATHY CALDERON ORDERED BMP,LIVER,CBCD,PT/INR,TSH,HEBSAG,HECAB,HEAT,HEP B CORE, AND ELF.PLANNING ASSOCIATE.SAMANTHAHOF ORDERED CMP AND A1C Performed By: #### L 3890.6102, L3100.0300, L3410.9992, L500.3400, L3890.6301, L500.2500, L501.9520, L3890.6202, L501.9985, L100.0100, L300.3900, L3100.0460 ####[facility] [address] [facility] [place], [place], [phone] Chloride [Moles/Vol] 96 mmol/L Low 98-108 [facility] Comment on above: Order Comment: KATHY CALDERON ORDERED BMP,LIVER,CBCD,PT/INR,TSH,HEBSAG,HECAB,HEAT,HEP B CORE, AND ELF.PLANNING ASSOCIATE.ATASANDIHOF ORDERED CMP AND A1C Performed By: #### L 3890.6102, L3100.0300, L3410.9992, L500.3400, L3890.6301, L500.2500, L501.9520, L3890.6202, L501.9985, L100.0100, L300.3900, L3100.0460 ####[facility] [address] [facility]. [place], [place], [phone] CO2 [Moles/Vol] 22.5 mmol/L Normal 21.0-32.0 [facility] Comment on above: Order Comment: KATHY CALDERON ORDERED BMP,LIVER,CBCD,PT/INR,TSH,HEBSAG,HECAB,HEAT,HEP B CORE, AND ELF.PLANNING ASSOCIATE.MIKEYNNHOF ORDERED CMP AND A1C Performed By: #### L 3890.6102, L3100.0300, L3410.9992, L500.3400, L3890.6301, L500.2500, L501.9520, L3890.6202, L501.9985, L100.0100, L300.3900, L3100.0460 ####[facility] [address] [place], [address] Creatinine [Mass/Vol] 0.78 mg/dL Normal 0.70-1.20 [facility] Comment on above: Order Comment: KATHY CALDERON ORDERED BMP,LIVER,CBCD,PT/INR,TSH,HEBSAG,HECAB,HEAT,HEP B CORE, AND ELF.ANTONIA ORDERED CMP AND A1C Performed By: #### L 3890.6102, L3100.0300, L3410.9992, L500.3400, L3890.6301, L500.2500, L501.9520, L3890.6202, L501.9985, L100.0100, L300.3900, L3100.0460 ####[facility] [address] [place], [address] GAP 15 Normal 5-15 [facility] Comment on above: Order Comment: KATHY CALDERON ORDERED BMP,LIVER,CBCD,PT/INR,TSH,HEBSAG,HECAB,HEAT,HEP B CORE, AND ELF.ANTONIA ORDERED CMP AND A1C Performed By: #### L 3890.6102, L3100.0300, L3410.9992, L500.3400, L3890.6301, L500.2500, L501.9520, L3890.6202, L501.9985, L100.0100, L300.3900, L3100.0460 ####[facility] [address] [place], [address] GFR/1.73 sq M.predicted among non-blacks MDRD (S/P/Bld) [Vol rate/Area] 106 mL/min/{1.73_m2} Normal >60 [facility] Comment on above: Order Comment: KATHY CALDERON ORDERED BMP,LIVER,CBCD,PT/INR,TSH,HEBSAG,HECAB,HEAT,HEP B CORE, AND ELF.PLANNING ASSOCIATE.SAMANTHAHOWalter ORDERED CMP AND A1C Result Comment: mL/m in/1.73m2 CKD-EPI Creatinine Equation (2020) Performed By: #### L 3890.6102, L3100.0300, L3410.9992, L500.3400, L3890.6301, L500.2500, L501.9520, L3890.6202, L501.9985, L100.0100, L300.3900, L3100.0460 ####[facility] [address] [place], [place], [address] Glucose [Mass/Vol] 459 mg/dL Invalid Interpretation Code 70-99 [facility] Comment on above: Order Comment: KATHY CALDERON ORDERED BMP,LIVER,CBCD,PT/INR,TSH,HEBSAG,HECAB,HEAT,HEP B CORE, AND ELF.PLANNING ASSOCIATE.SAMANTHAHOWalter ORDERED CMP AND A1C Result Comment: Crit ical Result(s) Called at: by:??Results read back bysa.LEFT VOICEMAIL @ 2018 Performed By: #### L 3890.6102, L3100.0300, L3410.9992, L500.3400, L3890.6301, L500.2500, L501.9520, L3890.6202, L501.9985, L100.0100, L300.3900, L3100.0460 ####[facility] [address] [place], [place], [address] Potassium [Moles/Vol] 4.7 mmol/L Normal 3.3-5.1 [facility] Comment on above: Order Comment: KATHY CALDERON ORDERED BMP,LIVER,CBCD,PT/INR,TSH,HEBSAG,HECAB,HEAT,HEP B CORE, AND ELF.PLANNING ASSOCIATE.SAMANTHAHOWalter ORDERED CMP AND A1C Performed By: #### L 3890.6102, L3100.0300, L3410.9992, L500.3400, L3890.6301, L500.2500, L501.9520, L3890.6202, L501.9985, L100.0100, L300.3900, L3100.0460 ####[facility] [address] [place], [address] Sodium [Moles/Vol] 133 mmol/L Normal 133-145 [facility] Comment on above: Order Comment: KATHY CALDERON ORDERED BMP,LIVER,CBCD,PT/INR,TSH,HEBSAG,HECAB,HEAT,HEP B CORE, AND ELF.PLANNING ASSOCIATE.AMOS ORDERED CMP AND A1C Performed By: #### L 3890.6102, L3100.0300, L3410.9992, L500.3400, L3890.6301, L500.2500, L501.9520, L3890.6202, L501.9985, L100.0100, L300.3900, L3100.0460 ####[facility] [address] [place], [address] Urea nitrogen [Mass/Vol] 10 mg/dL Normal 4-19 [facility] Comment on above: Order Comment: KATHY CALDERON ORDERED BMP,LIVER,CBCD,PT/INR,TSH,HEBSAG,HECAB,HEAT,HEP B CORE, AND ELF.ANTONIA ORDERED CMP AND A1C Performed By: #### L 3890.6102, L3100.0300, L3410.9992, L500.3400, L3890.6301, L500.2500, L501.9520, L3890.6202, L501.9985, L100.0100, L300.3900, L3100.0460 ####[facility] [address] [place], [place], [id number] CBC W/Diff, Automatedon 06-0 9-2024 Absolute Lymph 1.69 X10 3/uL Normal 0.83-4.51 [facility] Comment on above: Order Comment: KATHY CALDERON ORDERED BMP,LIVER,CBCD,PT/INR,TSH,HEBSAG,HECAB,HEAT,HEP B CORE, AND ELF.ANOTNIA ORDERED CMP AND A1C Performed By: #### L 3890.6102, L3100.0300, L3410.9992, L500.3400, L3890.6301, L500.2500, L501.9520, L3890.6202, L501.9985, L100.0100, L300.3900, L3100.0460 ####[facility] [address] [place], [address] Absolute Neut 7.9 X10 3/uL High 2.0-7.7 [facility] Comment on above: Order Comment: KATHY CALDERON ORDERED BMP,LIVER,CBCD,PT/INR,TSH,HEBSAG,HECAB,HEAT,HEP B CORE, AND ELF.ANTONIA ORDERED CMP AND A1C Performed By: #### L 3890.6102, L3100.0300, L3410.9992, L500.3400, L3890.6301, L500.2500, L501.9520, L3890.6202, L501.9985, L100.0100, L300.3900, L3100.0460 ####[facility] [address] [place], [address] Basophils/100 WBC (Bld) 0.5 % Normal 0-1 [facility] Comment on above: Order Comment: KATHY CALDERON ORDERED BMP,LIVER,CBCD,PT/INR,TSH,HEBSAG,HECAB,HEAT,HEP B CORE, AND ELF.ANTONIA ORDERED CMP AND A1C Performed By: #### L 3890.6102, L3100.0300, L3410.9992, L500.3400, L3890.6301, L500.2500, L501.9520, L3890.6202, L501.9985, L100.0100, L300.3900, L3100.0460 ####[facility] [address] [place], [place], [phone] Eosinophils/100 WBC (Bld) 0.5 % Normal 0-5 [facility] Comment on above: Order Comment: KATHY CALDERON ORDERED BMP,LIVER,CBCD,PT/INR,TSH,HEBSAG,HECAB,HEAT,HEP B CORE, AND ELF.ANTONIA ORDERED CMP AND A1C Performed By: #### L 3890.6102, L3100.0300, L3410.9992, L500.3400, L3890.6301, L500.2500, L501.9520, L3890.6202, L501.9985, L100.0100, L300.3900, L3100.0460 ####[facility] [address] [place], [place], [phone] Erythrocyte distribution width (RBC) [Ratio] 13.4 % Normal 11.6-14.6 [facility] Comment on above: Order Comment: KATHY CALDERON ORDERED BMP,LIVER,CBCD,PT/INR,TSH,HEBSAG,HECAB,HEAT,HEP B CORE, AND ELF.ANTONIA ORDERED CMP AND A1C Performed By: #### L 3890.6102, L3100.0300, L3410.9992, L500.3400, L3890.6301, L500.2500, L501.9520, L3890.6202, L501.9985, L100.0100, L300.3900, L3100.0460 ####[facility] [address] [place], [place], [id number] Hematocrit (Bld) [Volume fraction] 40.5 % Normal 37-47 [facility] Comment on above: Order Comment: KATHY CALDERON ORDERED BMP,LIVER,CBCD,PT/INR,TSH,HEBSAG,HECAB,HEAT,HEP B CORE, AND ELF.ANTONIA ORDERED CMP AND A1C Performed By: #### L 3890.6102, L3100.0300, L3410.9992, L500.3400, L3890.6301, L500.2500, L501.9520, L3890.6202, L501.9985, L100.0100, L300.3900, L3100.0460 ####[facility] [address] [place], [address] Hemoglobin (Bld) [Mass/Vol] 13.5 g/dL Normal 12.0-15.0 [facility] Comment on above: Order Comment: KATHY CALDERON ORDERED BMP,LIVER,CBCD,PT/INR,TSH,HEBSAG,HECAB,HEAT,HEP B CORE, AND ELF.ANTONIA ORDERED CMP AND A1C Performed By: #### L 3890.6102, L3100.0300, L3410.9992, L500.3400, L3890.6301, L500.2500, L501.9520, L3890.6202, L501.9985, L100.0100, L300.3900, L3100.0460 ####[facility] [address] [place], [address] IG% 1.500 High 0.0-0.9 [facility] Comment on above: Order Comment: KATHY CALDERON ORDERED BMP,LIVER,CBCD,PT/INR,TSH,HEBSAG,HECAB,HEAT,HEP B CORE, AND ELF.ANTONIA ORDERED CMP AND A1C Result Comment: IG% - Immature Granulocytes (promyelocytes, myelocytes andmetamyelocytes) > 1% indicates that a LEFT SHIFT is Present. Performed By: #### L 3890.6102, L3100.0300, L3410.9992, L500.3400, L3890.6301, L500.2500, L501.9520, L3890.6202, L501.9985, L100.0100, L300.3900, L3100.0460 ####[facility] [address] [place], [address] Lymphocytes/100 WBC (Bld) 16.3 % Low 19-41 [facility] Comment on above: Order Comment: KATHY CALDERON ORDERED BMP,LIVER,CBCD,PT/INR,TSH,HEBSAG,HECAB,HEAT,HEP B CORE, AND ELF.PLANNING ASSOCIATE.SAMANTHAHOWalter ORDERED CMP AND A1C Performed By: #### L 3890.6102, L3100.0300, L3410.9992, L500.3400, L3890.6301, L500.2500, L501.9520, L3890.6202, L501.9985, L100.0100, L300.3900, L3100.0460 ####[facility] [address] [place], [place], [id number] MCH (RBC) [Entitic mass] 29.7 pg Normal 27.0-32.0 [facility] Comment on above: Order Comment: KATHY CALDERON ORDERED BMP,LIVER,CBCD,PT/INR,TSH,HEBSAG,HECAB,HEAT,HEP B CORE, AND ELF.PLANNING ASSOCIATE.SAMANTHAHOWalter ORDERED CMP AND A1C Performed By: #### L 3890.6102, L3100.0300, L3410.9992, L500.3400, L3890.6301, L500.2500, L501.9520, L3890.6202, L501.9985, L100.0100, L300.3900, L3100.0460 ####[facility] [address] [place], [place], [id number] MCHC (RBC) [Mass/Vol] 33.3 g/dL Normal 32-36 [facility] Comment on above: Order Comment: KATHY CALDERON ORDERED BMP,LIVER,CBCD,PT/INR,TSH,HEBSAG,HECAB,HEAT,HEP B CORE, AND ELF.PLANNING ASSOCIATE.SAMANTHAHOWalter ORDERED CMP AND A1C Performed By: #### L 3890.6102, L3100.0300, L3410.9992, L500.3400, L3890.6301, L500.2500, L501.9520, L3890.6202, L501.9985, L100.0100, L300.3900, L3100.0460 ####[facility] [address] [place], [address] MCV (RBC) [Entitic vol] 89.0 fL Normal 81-99 [facility] Comment on above: Order Comment: KATHY CALDERON ORDERED BMP,LIVER,CBCD,PT/INR,TSH,HEBSAG,HECAB,HEAT,HEP B CORE, AND ELF.ANTONIA ORDERED CMP AND A1C Performed By: #### L 3890.6102, L3100.0300, L3410.9992, L500.3400, L3890.6301, L500.2500, L501.9520, L3890.6202, L501.9985, L100.0100, L300.3900, L3100.0460 ####[facility] [address] [place], [address] Monocytes/100 WBC (Bld) 4.8 % Normal 0-10 [facility] Comment on above: Order Comment: KATHY CALDERON ORDERED BMP,LIVER,CBCD,PT/INR,TSH,HEBSAG,HECAB,HEAT,HEP B CORE, AND ELF.ANTONIA ORDERED CMP AND A1C Performed By: #### L 3890.6102, L3100.0300, L3410.9992, L500.3400, L3890.6301, L500.2500, L501.9520, L3890.6202, L501.9985, L100.0100, L300.3900, L3100.0460 ####[facility] [address] [place], [address] Neutrophils/100 WBC (Bld) 76.4 % High 47-70 [facility] Comment on above: Order Comment: KATHY CALDERON ORDERED BMP,LIVER,CBCD,PT/INR,TSH,HEBSAG,HECAB,HEAT,HEP B CORE, AND ELF.SAMANTHAHOWalter ORDERED CMP AND A1C Performed By: #### L 3890.6102, L3100.0300, L3410.9992, L500.3400, L3890.6301, L500.2500, L501.9520, L3890.6202, L501.9985, L100.0100, L300.3900, L3100.0460 ####[facility] [address] [place], [place], [id number] Nucleated RBC (Bld) [#/Vol] 0 10*3/uL Normal 0-5 [facility] Comment on above: Order Comment: KATHY CALDERON ORDERED BMP,LIVER,CBCD,PT/INR,TSH,HEBSAG,HECAB,HEAT,HEP B CORE, AND ELF.PLANNING ASSOCIATE.SAMANTHAHOWalter ORDERED CMP AND A1C Performed By: #### L 3890.6102, L3100.0300, L3410.9992, L500.3400, L3890.6301, L500.2500, L501.9520, L3890.6202, L501.9985, L100.0100, L300.3900, L3100.0460 ####[facility] [address] [place], [address] Platelet mean volume (Bld) [Entitic vol] 11.5 fL Normal 6.2-12.0 [facility] Comment on above: Order Comment: KATHY CALDERON ORDERED BMP,LIVER,CBCD,PT/INR,TSH,HEBSAG,HECAB,HEAT,HEP B CORE, AND ELF.PLANNING ASSOCIATE.SAMANTHAHOWalter ORDERED CMP AND A1C Performed By: #### L 3890.6102, L3100.0300, L3410.9992, L500.3400, L3890.6301, L500.2500, L501.9520, L3890.6202, L501.9985, L100.0100, L300.3900, L3100.0460 ####[facility] [address] [facility] [place], [phone] Platelets (Bld) [#/Vol] 215 10*3/uL Normal 150-450 [facility] Comment on above: Order Comment: KATHY CALDERON ORDERED BMP,LIVER,CBCD,PT/INR,TSH,HEBSAG,HECAB,HEAT,HEP B CORE, AND ELF.PLANNING ASSOCIATE.AMOS ORDERED CMP AND A1C Performed By: #### L 3890.6102, L3100.0300, L3410.9992, L500.3400, L3890.6301, L500.2500, L501.9520, L3890.6202, L501.9985, L100.0100, L300.3900, L3100.0460 ####[facility] [address] [place], [place], [phone] RBC (Bld) [#/Vol] 4.55 10*6/uL Normal 4.2-5.4 [facility] Comment on above: Order Comment: KATHY CALDERON ORDERED BMP,LIVER,CBCD,PT/INR,TSH,HEBSAG,HECAB,HEAT,HEP B CORE, AND ELF.PLANNING ASSOCIATE.AMOS ORDERED CMP AND A1C Performed By: #### L 3890.6102, L3100.0300, L3410.9992, L500.3400, L3890.6301, L500.2500, L501.9520, L3890.6202, L501.9985, L100.0100, L300.3900, L3100.0460 ####[facility] [address] [place], [place], [phone]([phone]) RDW SD 43.5 fl Normal 35.1-43.9 [facility] Comment on above: Order Comment: KATHY CALDERON ORDERED BMP,LIVER,CBCD,PT/INR,TSH,HEBSAG,HECAB,HEAT,HEP B CORE, AND ELF.PLANNING ASSOCIATEDAYANA ORDERED CMP AND A1C Performed By: #### L 3890.6102, L3100.0300, L3410.9992, L500.3400, L3890.6301, L500.2500, L501.9520, L3890.6202, L501.9985, L100.0100, L300.3900, L3100.0460 ####[facility] [address] [place], [address] WBC (Bld) [#/Vol] 10.4 10*3/uL Normal 4.4-11.0 [facility] Comment on above: Order Comment: KATHY CALDERON ORDERED BMP,LIVER,CBCD,PT/INR,TSH,HEBSAG,HECAB,HEAT,HEP B CORE, AND ELF.ANTONIA ORDERED CMP AND A1C Performed By: #### L 3890.6102, L3100.0300, L3410.9992, L500.3400, L3890.6301, L500.2500, L501.9520, L3890.6202, L501.9985, L100.0100, L300.3900, L3100.0460 ####[facility] [address] [place], [address] Hemoglobin A1con 02-03-2025 HbA1c (Bld) [Mass fraction] 10.9 % High <=5.6 [facility] Comment on above: Order Comment: KATHY CALDERON ORDERED BMP,LIVER,CBCD,PT/INR,TSH,HEBSAG,HECAB,HEAT,HEP B CORE, AND ELF.ANTONIA ORDERED CMP AND A1C Result Comment: Norm al < 5.7 % Prediabetic 5.7 - 6.4 % Diabetic >or= 6.5 % Please note range changes. Performed By: #### L 3890.6102, L3100.0300, L3410.9992, L500.3400, L3890.6301, L500.2500, L501.9520, L3890.6202, L501.9985, L100.0100, L300.3900, L3100.0460 ####[facility] [address] [place], [place], [address] Hepatitis B Surface Antibody on 02-03-2025 HEP B Surf Ab Non-Reactive Normal [facility] Comment on above: Order Comment: KATHY CALDERON ORDERED BMP,LIVER,CBCD,PT/INR,TSH,HEBSAG,HECAB,HEAT,HEP B CORE, AND ELF.ANTONIA ORDERED CMP AND A1C Result Comment: <8.5 mIU/mL: Non-Reactive8.5<= x <11.5 mIU/mL: Indeterminate>=11.5 mIU/mL: Reactive Non Reactive: Inconsistent with immunity less than <10 mIU/mL Reactive: Consistent with immunity greater than or equal to 10 mIU/mL Performed By: #### L 3890.6102, L3100.0300, L3410.9992, L500.3400, L3890.6301, L500.2500, L501.9520, L3890.6202, L501.9985, L100.0100, L300.3900, L3100.0460 ####[facility] [address] [place], [place], [phone] Hepatitis C Antibodyon 02-03 Hepatitis C Ab Non-Reactive Normal Nonreactive [facility] Comment on above: Order Comment: KATHY CALDERON ORDERED BMP,LIVER,CBCD,PT/INR,TSH,HEBSAG,HECAB,HEAT,HEP B CORE, AND ELF.ANTONIA ORDERED CMP AND A1C Result Comment: Reac tive: Presumptive evidence of antibodies to HCV. FollowC recommendations for supplemental testing.Non-Reactive: Antibodies to HCV were not detected; does notexclude the possibility of exposure to HCVReactive Results are presumptive evidence of antibodies toHCV. Follow CDC recommendations for supplemental testing.Order confirmation testing: HCV Quant by PCR testing -HCVPCR #[id number] Non Reactive: < 0.8 Equivocal: >/= 0.8 to < 1.0 Reactive: >/= 1.0The CDC requires that a reactive/equivocal HCV antibodyresult be sent out for confirmation. HCV Quant by PCRtesting. Performed By: #### L 3890.6102, L3100.0300, L3410.9992, L500.3400, L3890.6301, L500.2500, L501.9520, L3890.6202, L501.9985, L100.0100, L300.3900, L3100.0460 ####[facility] [address] [place], [place], [id number] L3890.6102on 02-03-2025 HEP B Surf Ag Non-Reactive Normal Nonreactive [facility] Comment on above: Order Comment: KATHY CALDERON ORDERED BMP,LIVER,CBCD,PT/INR,TSH,HEBSAG,HECAB,HEAT,HEP B CORE, AND ELF.ANTONIA ORDERED CMP AND A1C Result Comment: Reac tive: Presumptive evidence of HBV. Repeatedly reactivesamples must be confirmed using a neutralization test([employer] HBsAg Confirmatory Test)Non-Reactive: HBsAg not detected; does not exclude thepossibility of exposure to HBV Performed By: #### L 3890.6102, L3100.0300, L3410.9992, L500.3400, L3890.6301, L500.2500, L501.9520, L3890.6202, L501.9985, L100.0100, L300.3900, L3100.0460 ####[facility] [address] [place], [place], [phone] Liver Profileon 02-03-2025 Albumin [Mass/Vol] 4.2 g/dL Normal 3.5-5.0 [facility] Comment on above: Order Comment: KATHY CALDERON ORDERED BMP,LIVER,CBCD,PT/INR,TSH,HEBSAG,HECAB,HEAT,HEP B CORE, AND ELF.ANTONIA ORDERED CMP AND A1C Performed By: #### L 3890.6102, L3100.0300, L3410.9992, L500.3400, L3890.6301, L500.2500, L501.9520, L3890.6202, L501.9985, L100.0100, L300.3900, L3100.0460 ####[facility] [address] [place], [address] ALK PHOS 95 U/L Normal 35-104 [facility] Comment on above: Order Comment: KATHY CALDERON ORDERED BMP,LIVER,CBCD,PT/INR,TSH,HEBSAG,HECAB,HEAT,HEP B CORE, AND ELF.ANTONIA ORDERED CMP AND A1C Performed By: #### L 3890.6102, L3100.0300, L3410.9992, L500.3400, L3890.6301, L500.2500, L501.9520, L3890.6202, L501.9985, L100.0100, L300.3900, L3100.0460 ####[facility] [address] [place], [address] ALT [Catalytic activity/Vol] 29 U/L Normal <=34 [facility] Comment on above: Order Comment: KATHY CALDERON ORDERED BMP,LIVER,CBCD,PT/INR,TSH,HEBSAG,HECAB,HEAT,HEP B CORE, AND ELF.ANTONIA ORDERED CMP AND A1C Performed By: #### L 3890.6102, L3100.0300, L3410.9992, L500.3400, L3890.6301, L500.2500, L501.9520, L3890.6202, L501.9985, L100.0100, L300.3900, L3100.0460 ####[facility] [address] [place], [place], [phone] AST [Catalytic activity/Vol] 18 U/L Normal <=31 [facility] Comment on above: Order Comment: KATHY CALDERON ORDERED BMP,LIVER,CBCD,PT/INR,TSH,HEBSAG,HECAB,HEAT,HEP B CORE, AND ELF.ANTONIA ORDERED CMP AND A1C Performed By: #### L 3890.6102, L3100.0300, L3410.9992, L500.3400, L3890.6301, L500.2500, L501.9520, L3890.6202, L501.9985, L100.0100, L300.3900, L3100.0460 ####[facility] [address] [place], [address] Bilirubin [Mass/Vol] 0.30 mg/dL Normal 0.00-1.30 [facility] Comment on above: Order Comment: KATHY CALDERON ORDERED BMP,LIVER,CBCD,PT/INR,TSH,HEBSAG,HECAB,HEAT,HEP B CORE, AND ELF.ANTONIA ORDERED CMP AND A1C Performed By: #### L 3890.6102, L3100.0300, L3410.9992, L500.3400, L3890.6301, L500.2500, L501.9520, L3890.6202, L501.9985, L100.0100, L300.3900, L3100.0460 ####[facility] [address] [place], [place], [phone]) Bilirubin.direct [Mass/Vol] 0.13 mg/dL Normal 0.00-0.30 [facility] Comment on above: Order Comment: KATHY CALDERON ORDERED BMP,LIVER,CBCD,PT/INR,TSH,HEBSAG,HECAB,HEAT,HEP B CORE, AND ELF.ANTONIA ORDERED CMP AND A1C Performed By: #### L 3890.6102, L3100.0300, L3410.9992, L500.3400, L3890.6301, L500.2500, L501.9520, L3890.6202, L501.9985, L100.0100, L300.3900, L3100.0460 ####[facility] [address] [place], [address] Globulin (S) [Mass/Vol] 2.7 g/dL Normal 2.2-4.2 [facility] Comment on above: Order Comment: KATHY CALDERON ORDERED BMP,LIVER,CBCD,PT/INR,TSH,HEBSAG,HECAB,HEAT,HEP B CORE, AND ELF.ANTONIA ORDERED CMP AND A1C Performed By: #### L 3890.6102, L3100.0300, L3410.9992, L500.3400, L3890.6301, L500.2500, L501.9520, L3890.6202, L501.9985, L100.0100, L300.3900, L3100.0460 ####[facility] [address] [place], [place], [phone] T PROT 6.8 g/dL Normal 5.9-8.4 [facility] Comment on above: Order Comment: KATHY CALDERON ORDERED BMP,LIVER,CBCD,PT/INR,TSH,HEBSAG,HECAB,HEAT,HEP B CORE, AND ELF.ANTONIA ORDERED CMP AND A1C Performed By: #### L 3890.6102, L3100.0300, L3410.9992, L500.3400, L3890.6301, L500.2500, L501.9520, L3890.6202, L501.9985, L100.0100, L300.3900, L3100.0460 ####[facility] [address] [place], [place], [phone] Prothrombin Time w/INRon INR Coag (PPP) [Relative time] 0.9 {INR} Normal [facility] Comment on above: Order Comment: KATHY CALDERON ORDERED BMP,LIVER,CBCD,PT/INR,TSH,HEBSAG,HECAB,HEAT,HEP B CORE, AND ELF.ANTONIA ORDERED CMP AND A1C Performed By: #### L 3890.6102, L3100.0300, L3410.9992, L500.3400, L3890.6301, L500.2500, L501.9520, L3890.6202, L501.9985, L100.0100, L300.3900, L3100.0460 ####[facility] [address] [place], [address] PT Coag (PPP) [Time] 11.9 s Normal 11.7-14.9 [facility] Comment on above: Order Comment: KATHY CALDERON ORDERED BMP,LIVER,CBCD,PT/INR,TSH,HEBSAG,HECAB,HEAT,HEP B CORE, AND ELF.ANTONIA ORDERED CMP AND A1C Performed By: #### L 3890.6102, L3100.0300, L3410.9992, L500.3400, L3890.6301, L500.2500, L501.9520, L3890.6202, L501.9985, L100.0100, L300.3900, L3100.0460 ####[facility] [address] [place], [address] Thyroid Stim Hormone (TSH)on 02-03-2025 TSH 1.140 uIU/mL Normal 0.300-4.200 [facility] Comment on above: Order Comment: KATHY CALDERON ORDERED BMP,LIVER,CBCD,PT/INR,TSH,HEBSAG,HECAB,HEAT,HEP B CORE, AND ELF.ANTONIA ORDERED CMP AND A1C Performed By: #### L 3890.6102, L3100.0300, L3410.9992, L500.3400, L3890.6301, L500.2500, L501.9520, L3890.6202, L501.9985, L100.0100, L300.3900, L3100.0460 ####[facility] [address] [place], [address] Basic Metabolic Profile (BMP )on 02-01-2025 BUN Normal 4-19 [facility] Comment on above: Result Comment: Canc elled via OM: Order cancelled - Patient discharged Performed By: #### L 100.0100, L500.2500 ####[facility] [address] [place], [address] BUN/CRE Normal 10-20 [facility] Comment on above: Result Comment: Canc elled via OM: Order cancelled - Patient discharged Performed By: #### L 100.0100, L500.2500 ####[facility] [address] [place], [address] Calcium Normal 7.6-11.0 [facility] Comment on above: Result Comment: Canc elled via OM: Order cancelled - Patient discharged Performed By: #### L 100.0100, L500.2500 ####[facility] [address] [place], [address] CL Normal 98-108 [facility] Comment on above: Result Comment: Canc elled via OM: Order cancelled - Patient discharged Performed By: #### L 100.0100, L500.2500 ####[facility] [address] [place], [address] CO2 Normal 21.0-32.0 [facility] Comment on above: Result Comment: Canc elled via OM: Order cancelled - Patient discharged Performed By: #### L 100.0100, L500.2500 ####[facility] [address] [place], [address] CREAT,SERUM Normal 0.70-1.20 [facility] Comment on above: Result Comment: Canc elled via OM: Order cancelled - Patient discharged Performed By: #### L 100.0100, L500.2500 ####[facility] [address] [place], [address] eGFR Normal >60 [facility] Comment on above: Result Comment: Canc elled via OM: Order cancelled - Patient discharged Performed By: #### L 100.0100, L500.2500 ####[facility] [address] [place], [address] GAP Normal 5-15 [facility] Comment on above: Result Comment: Canc elled via OM: Order cancelled - Patient discharged Performed By: #### L 100.0100, L500.2500 ####[facility] [address] [place], [address] GLU Normal 70-99 [facility] Comment on above: Result Comment: Canc elled via OM: Order cancelled - Patient discharged Performed By: #### L 100.0100, L500.2500 ####[facility] [address] [place], [address] Potassium Normal 3.3-5.1 [facility] Comment on above: Result Comment: Canc elled via OM: Order cancelled - Patient discharged Performed By: #### L 100.0100, L500.2500 ####[facility] [address] [place], [address] Basic Metabolic Profile (BMP) Normal 133-145 [facility] Comment on above: Result Comment: Canc elled via OM: Order cancelled - Patient discharged Performed By: #### L 100.0100, L500.2500 ####[facility] [address] [place], [address] CBC W/Diff, Automatedon 06-0 7-2024 Absolute Neut Normal 2.0-7.7 [facility] Comment on above: Result Comment: Canc elled via OM: Order cancelled - Patient discharged Performed By: #### L 100.0100, L500.2500 ####[facility] [address] [place], [address] HCT Normal 37-47 [facility] Comment on above: Result Comment: Canc elled via OM: Order cancelled - Patient discharged Performed By: #### L 100.0100, L500.2500 ####[facility] [address] [place], [address] HGB Normal 12.0-15.0 [facility] Comment on above: Result Comment: Canc elled via OM: Order cancelled - Patient discharged Performed By: #### L 100.0100, L500.2500 ####[facility] [address] [place], [address] MCH Normal 27.0-32.0 [facility] Comment on above: Result Comment: Canc elled via OM: Order cancelled - Patient discharged Performed By: #### L 100.0100, L500.2500 ####[facility] [address] [place], [address] MCHC Normal 32-36 [facility] Comment on above: Result Comment: Canc elled via OM: Order cancelled - Patient discharged Performed By: #### L 100.0100, L500.2500 ####[facility] [address] [place], [address] MCV Normal 81-99 [facility] Comment on above: Result Comment: Canc elled via OM: Order cancelled - Patient discharged Performed By: #### L 100.0100, L500.2500 ####[facility] [address] [place], [address] NEUT% Normal 47-70 [facility] Comment on above: Result Comment: Canc elled via OM: Order cancelled - Patient discharged Performed By: #### L 100.0100, L500.2500 ####[facility] [address] [place], [address] PLT Normal 150-450 [facility] Comment on above: Result Comment: Canc elled via OM: Order cancelled - Patient discharged Performed By: #### L 100.0100, L500.2500 ####[facility] [address] [place], [address] RBC Normal 4.2-5.4 [facility] Comment on above: Result Comment: Canc elled via OM: Order cancelled - Patient discharged Performed By: #### L 100.0100, L500.2500 ####[facility] [address] [place], [address] RDW CV Normal 11.6-14.6 [facility] Comment on above: Result Comment: Canc elled via OM: Order cancelled - Patient discharged Performed By: #### L 100.0100, L500.2500 ####[facility] [address] [place], [address] RDW SD Normal 35.1-43.9 [facility] Comment on above: Result Comment: Canc elled via OM: Order cancelled - Patient discharged Performed By: #### L 100.0100, L500.2500 ####[facility] [address] [place], [address] WBC Normal 4.4-11.0 [facility] Comment on above: Result Comment: Canc elled via OM: Order cancelled - Patient discharged Performed By: #### L 100.0100, L500.2500 ####[facility] [address] [place], [address] Basic Metabolic Profile (BMP )on 01-31-2025 BUN Normal 4-19 [facility] Comment on above: Result Comment: Canc elled via OM: Order cancelled - Patient discharged Performed By: #### L 100.0100, L500.2500 ####[facility] [address] [place], [address] BUN/CRE Normal 10-20 [facility] Comment on above: Result Comment: Canc elled via OM: Order cancelled - Patient discharged Performed By: #### L 100.0100, L500.2500 ####[facility] [address] [place], [address] Calcium Normal 7.6-11.0 [facility] Comment on above: Result Comment: Canc elled via OM: Order cancelled - Patient discharged Performed By: #### L 100.0100, L500.2500 ####[facility] [address] [place], [address] CL Normal 98-108 [facility] Comment on above: Result Comment: Canc elled via OM: Order cancelled - Patient discharged Performed By: #### L 100.0100, L500.2500 ####[facility] [address] [place], [address] CO2 Normal 21.0-32.0 [facility] Comment on above: Result Comment: Canc elled via OM: Order cancelled - Patient discharged Performed By: #### L 100.0100, L500.2500 ####[facility] [address] [place], [address] CREAT,SERUM Normal 0.70-1.20 [facility] Comment on above: Result Comment: Canc elled via OM: Order cancelled - Patient discharged Performed By: #### L 100.0100, L500.2500 ####[facility] [address] [place], [address] eGFR Normal >60 [facility] Comment on above: Result Comment: Canc elled via OM: Order cancelled - Patient discharged Performed By: #### L 100.0100, L500.2500 ####[facility] [address] [place], [address] GAP Normal 5-15 [facility] Comment on above: Result Comment: Canc elled via OM: Order cancelled - Patient discharged Performed By: #### L 100.0100, L500.2500 ####[facility] [address] [place], [address] GLU Normal 70-99 [facility] Comment on above: Result Comment: Canc elled via OM: Order cancelled - Patient discharged Performed By: #### L 100.0100, L500.2500 ####[facility] [address] [place], [address] Potassium Normal 3.3-5.1 [facility] Comment on above: Result Comment: Canc elled via OM: Order cancelled - Patient discharged Performed By: #### L 100.0100, L500.2500 ####[facility] [address] [place], [address] Basic Metabolic Profile (BMP) Normal 133-145 [facility] Comment on above: Result Comment: Canc elled via OM: Order cancelled - Patient discharged Performed By: #### L 100.0100, L500.2500 ####[facility] [address] [place], [address] CBC W/Diff, Automatedon 06-0 6-2024 Absolute Neut Normal 2.0-7.7 [facility] Comment on above: Result Comment: Canc elled via OM: Order cancelled - Patient discharged Performed By: #### L 100.0100, L500.2500 ####[facility] [address] [place], [address] HCT Normal 37-47 [facility] Comment on above: Result Comment: Canc elled via OM: Order cancelled - Patient discharged Performed By: #### L 100.0100, L500.2500 ####[facility] [address] [place], [address] HGB Normal 12.0-15.0 [facility] Comment on above: Result Comment: Canc elled via OM: Order cancelled - Patient discharged Performed By: #### L 100.0100, L500.2500 ####[facility] [address] [place], [address] MCH Normal 27.0-32.0 [facility] Comment on above: Result Comment: Canc elled via OM: Order cancelled - Patient discharged Performed By: #### L 100.0100, L500.2500 ####[facility] [address] [place], [address] MCHC Normal 32-36 [facility] Comment on above: Result Comment: Canc elled via OM: Order cancelled - Patient discharged Performed By: #### L 100.0100, L500.2500 ####[facility] [address] [place], [address] MCV Normal 81-99 [facility] Comment on above: Result Comment: Canc elled via OM: Order cancelled - Patient discharged Performed By: #### L 100.0100, L500.2500 ####[facility] [address] [place], [address] NEUT% Normal 47-70 [facility] Comment on above: Result Comment: Canc elled via OM: Order cancelled - Patient discharged Performed By: #### L 100.0100, L500.2500 ####[facility] [address] [place], [address] PLT Normal 150-450 [facility] Comment on above: Result Comment: Canc elled via OM: Order cancelled - Patient discharged Performed By: #### L 100.0100, L500.2500 ####[facility] [address] [place], [address] RBC Normal 4.2-5.4 [facility] Comment on above: Result Comment: Canc elled via OM: Order cancelled - Patient discharged Performed By: #### L 100.0100, L500.2500 ####[facility] [address] [place], [address] RDW CV Normal 11.6-14.6 [facility] Comment on above: Result Comment: Canc elled via OM: Order cancelled - Patient discharged Performed By: #### L 100.0100, L500.2500 ####[facility] [address] [place], [address] RDW SD Normal 35.1-43.9 [facility] Comment on above: Result Comment: Canc elled via OM: Order cancelled - Patient discharged Performed By: #### L 100.0100, L500.2500 ####[facility] [address] [place], [address] WBC Normal 4.4-11.0 [facility] Comment on above: Result Comment: Canc elled via OM: Order cancelled - Patient discharged Performed By: #### L 100.0100, L500.2500 ####[facility] [address] [place], [address] Basic Metabolic Profile (BMP )on 01-30-2025 BUN Normal 4-19 [facility] Comment on above: Result Comment: Canc elled via OM: Order cancelled - Patient discharged Performed By: #### L 100.0100, L500.2500 ####[facility] [address] [place], [address] BUN/CRE Normal 10-20 [facility] Comment on above: Result Comment: Canc elled via OM: Order cancelled - Patient discharged Performed By: #### L 100.0100, L500.2500 ####[facility] [address] [place], [address] Calcium Normal 7.6-11.0 [facility] Comment on above: Result Comment: Canc elled via OM: Order cancelled - Patient discharged Performed By: #### L 100.0100, L500.2500 ####[facility] [address] [place], [address] CL Normal 98-108 [facility] Comment on above: Result Comment: Canc elled via OM: Order cancelled - Patient discharged Performed By: #### L 100.0100, L500.2500 ####[facility] [address] [place], [address] CO2 Normal 21.0-32.0 [facility] Comment on above: Result Comment: Canc elled via OM: Order cancelled - Patient discharged Performed By: #### L 100.0100, L500.2500 ####[facility] [address] [place], [address] CREAT,SERUM Normal 0.70-1.20 [facility] Comment on above: Result Comment: Canc elled via OM: Order cancelled - Patient discharged Performed By: #### L 100.0100, L500.2500 ####[facility] [address] [place], [address] eGFR Normal >60 [facility] Comment on above: Result Comment: Canc elled via OM: Order cancelled - Patient discharged Performed By: #### L 100.0100, L500.2500 ####[facility] [address] [place], [address] GAP Normal 5-15 [facility] Comment on above: Result Comment: Canc elled via OM: Order cancelled - Patient discharged Performed By: #### L 100.0100, L500.2500 ####[facility] [address] [place], [address] GLU Normal 70-99 [facility] Comment on above: Result Comment: Canc elled via OM: Order cancelled - Patient discharged Performed By: #### L 100.0100, L500.2500 ####[facility] [address] [place], [address] Potassium Normal 3.3-5.1 [facility] Comment on above: Result Comment: Canc elled via OM: Order cancelled - Patient discharged Performed By: #### L 100.0100, L500.2500 ####[facility] [address] [place], [address] Basic Metabolic Profile (BMP) Normal 133-145 [facility] Comment on above: Result Comment: Canc elled via OM: Order cancelled - Patient discharged Performed By: #### L 100.0100, L500.2500 ####[facility] [address] [place], [address] CBC W/Diff, Automatedon 06-0 -2024 Absolute Neut Normal 2.0-7.7 [facility] Comment on above: Result Comment: Canc elled via OM: Order cancelled - Patient discharged Performed By: #### L 100.0100, L500.2500 ####[facility] [address] [place], [address] HCT Normal 37-47 [facility] Comment on above: Result Comment: Canc elled via OM: Order cancelled - Patient discharged Performed By: #### L 100.0100, L500.2500 ####[facility] [address] [place], [address] HGB Normal 12.0-15.0 [facility] Comment on above: Result Comment: Canc elled via OM: Order cancelled - Patient discharged Performed By: #### L 100.0100, L500.2500 ####[facility] [address] [place], [address] MCH Normal 27.0-32.0 [facility] Comment on above: Result Comment: Canc elled via OM: Order cancelled - Patient discharged Performed By: #### L 100.0100, L500.2500 ####[facility] [address] [place], [address] MCHC Normal 32-36 [facility] Comment on above: Result Comment: Canc elled via OM: Order cancelled - Patient discharged Performed By: #### L 100.0100, L500.2500 ####[facility] [address] [place], [address] MCV Normal 81-99 [facility] Comment on above: Result Comment: Canc elled via OM: Order cancelled - Patient discharged Performed By: #### L 100.0100, L500.2500 ####[facility] [address] [place], [address] NEUT% Normal 47-70 [facility] Comment on above: Result Comment: Canc elled via OM: Order cancelled - Patient discharged Performed By: #### L 100.0100, L500.2500 ####[facility] [address] [place], [address] PLT Normal 150-450 [facility] Comment on above: Result Comment: Canc elled via OM: Order cancelled - Patient discharged Performed By: #### L 100.0100, L500.2500 ####[facility] [address] [place], [address] RBC Normal 4.2-5.4 [facility] Comment on above: Result Comment: Canc elled via OM: Order cancelled - Patient discharged Performed By: #### L 100.0100, L500.2500 ####[facility] [address] [place], [address] RDW CV Normal 11.6-14.6 [facility] Comment on above: Result Comment: Canc elled via OM: Order cancelled - Patient discharged Performed By: #### L 100.0100, L500.2500 ####[facility] [address] [place], [address] RDW SD Normal 35.1-43.9 [facility] Comment on above: Result Comment: Canc elled via OM: Order cancelled - Patient discharged Performed By: #### L 100.0100, L500.2500 ####[facility] [address] [place], [address] WBC Normal 4.4-11.0 [facility] Comment on above: Result Comment: Canc elled via OM: Order cancelled - Patient discharged Performed By: #### L 100.0100, L500.2500 ####[facility] [address] [place], [address] Basic Metabolic Profile (BMP )on 01-29-2025 BUN Normal 4-19 [facility] Comment on above: Result Comment: Canc elled via OM: Order cancelled - Patient discharged Performed By: #### L 100.0100, L500.2500 ####[facility] [address] [place], [address] BUN/CRE Normal 10-20 [facility] Comment on above: Result Comment: Canc elled via OM: Order cancelled - Patient discharged Performed By: #### L 100.0100, L500.2500 ####[facility] [address] [place], [address] Calcium Normal 7.6-11.0 [facility] Comment on above: Result Comment: Canc elled via OM: Order cancelled - Patient discharged Performed By: #### L 100.0100, L500.2500 ####[facility] [address] [place], [address] CL Normal 98-108 [facility] Comment on above: Result Comment: Canc elled via OM: Order cancelled - Patient discharged Performed By: #### L 100.0100, L500.2500 ####[facility] [address] [place], [address] CO2 Normal 21.0-32.0 [facility] Comment on above: Result Comment: Canc elled via OM: Order cancelled - Patient discharged Performed By: #### L 100.0100, L500.2500 ####[facility] [address] [place], [address] CREAT,SERUM Normal 0.70-1.20 [facility] Comment on above: Result Comment: Canc elled via OM: Order cancelled - Patient discharged Performed By: #### L 100.0100, L500.2500 ####[facility] [address] [place], [address] eGFR Normal >60 [facility] Comment on above: Result Comment: Canc elled via OM: Order cancelled - Patient discharged Performed By: #### L 100.0100, L500.2500 ####[facility] [address] [place], [address] GAP Normal 5-15 [facility] Comment on above: Result Comment: Canc elled via OM: Order cancelled - Patient discharged Performed By: #### L 100.0100, L500.2500 ####[facility] [address] [place], [address] GLU Normal 70-99 [facility] Comment on above: Result Comment: Canc elled via OM: Order cancelled - Patient discharged Performed By: #### L 100.0100, L500.2500 ####[facility] [address] [place], [address] Potassium Normal 3.3-5.1 [facility] Comment on above: Result Comment: Canc elled via OM: Order cancelled - Patient discharged Performed By: #### L 100.0100, L500.2500 ####[facility] [address] [place], [address] Basic Metabolic Profile (BMP) Normal 133-145 [facility] Comment on above: Result Comment: Canc elled via OM: Order cancelled - Patient discharged Performed By: #### L 100.0100, L500.2500 ####[facility] [address] [place], [address] CBC W/Diff, Automatedon 06-0 -2024 Absolute Neut Normal 2.0-7.7 [facility] Comment on above: Result Comment: Canc elled via OM: Order cancelled - Patient discharged Performed By: #### L 100.0100, L500.2500 ####[facility] [address] [place], [address] HCT Normal 37-47 [facility] Comment on above: Result Comment: Canc elled via OM: Order cancelled - Patient discharged Performed By: #### L 100.0100, L500.2500 ####[facility] [address] [place], [address] HGB Normal 12.0-15.0 [facility] Comment on above: Result Comment: Canc elled via OM: Order cancelled - Patient discharged Performed By: #### L 100.0100, L500.2500 ####[facility] [address] [place], [address] MCH Normal 27.0-32.0 [facility] Comment on above: Result Comment: Canc elled via OM: Order cancelled - Patient discharged Performed By: #### L 100.0100, L500.2500 ####[facility] [address] [place], [address] MCHC Normal 32-36 [facility] Comment on above: Result Comment: Canc elled via OM: Order cancelled - Patient discharged Performed By: #### L 100.0100, L500.2500 ####[facility] [address] [place], [address] MCV Normal 81-99 [facility] Comment on above: Result Comment: Canc elled via OM: Order cancelled - Patient discharged Performed By: #### L 100.0100, L500.2500 ####[facility] [address] [place], [address] NEUT% Normal 47-70 [facility] Comment on above: Result Comment: Canc elled via OM: Order cancelled - Patient discharged Performed By: #### L 100.0100, L500.2500 ####[facility] [address] [place], [address] PLT Normal 150-450 [facility] Comment on above: Result Comment: Canc elled via OM: Order cancelled - Patient discharged Performed By: #### L 100.0100, L500.2500 ####[facility] [address] [place], [address] RBC Normal 4.2-5.4 [facility] Comment on above: Result Comment: Canc elled via OM: Order cancelled - Patient discharged Performed By: #### L 100.0100, L500.2500 ####[facility] [address] [place], [address] RDW CV Normal 11.6-14.6 [facility] Comment on above: Result Comment: Canc elled via OM: Order cancelled - Patient discharged Performed By: #### L 100.0100, L500.2500 ####[facility] [address] [place], [address] RDW SD Normal 35.1-43.9 [facility] Comment on above: Result Comment: Canc elled via OM: Order cancelled - Patient discharged Performed By: #### L 100.0100, L500.2500 ####[facility] [address] [place], [address] WBC Normal 4.4-11.0 [facility] Comment on above: Result Comment: Canc elled via OM: Order cancelled - Patient discharged Performed By: #### L 100.0100, L500.2500 ####[facility] [address] [place], [address] Basic Metabolic Profile (BMP )on 01-28-2025 BUN Normal 4-19 [facility] Comment on above: Result Comment: Canc elled via OM: Order cancelled - Patient discharged Performed By: #### L 100.0100, L500.2500 ####[facility] [address] [place], [address] BUN/CRE Normal 10-20 [facility] Comment on above: Result Comment: Canc elled via OM: Order cancelled - Patient discharged Performed By: #### L 100.0100, L500.2500 ####[facility] [address] [place], [address] Calcium Normal 7.6-11.0 [facility] Comment on above: Result Comment: Canc elled via OM: Order cancelled - Patient discharged Performed By: #### L 100.0100, L500.2500 ####[facility] [address] [place], [address] CL Normal 98-108 [facility] Comment on above: Result Comment: Canc elled via OM: Order cancelled - Patient discharged Performed By: #### L 100.0100, L500.2500 ####[facility] [address] [place], [address] CO2 Normal 21.0-32.0 [facility] Comment on above: Result Comment: Canc elled via OM: Order cancelled - Patient discharged Performed By: #### L 100.0100, L500.2500 ####[facility] [address] [place], [address] CREAT,SERUM Normal 0.70-1.20 [facility] Comment on above: Result Comment: Canc elled via OM: Order cancelled - Patient discharged Performed By: #### L 100.0100, L500.2500 ####[facility] [address] [place], [address] eGFR Normal >60 [facility] Comment on above: Result Comment: Canc elled via OM: Order cancelled - Patient discharged Performed By: #### L 100.0100, L500.2500 ####[facility] [address] [place], [address] GAP Normal 5-15 [facility] Comment on above: Result Comment: Canc elled via OM: Order cancelled - Patient discharged Performed By: #### L 100.0100, L500.2500 ####[facility] [address] [place], [address] GLU Normal 70-99 [facility] Comment on above: Result Comment: Canc elled via OM: Order cancelled - Patient discharged Performed By: #### L 100.0100, L500.2500 ####[facility] [address] [place], [address] Potassium Normal 3.3-5.1 [facility] Comment on above: Result Comment: Canc elled via OM: Order cancelled - Patient discharged Performed By: #### L 100.0100, L500.2500 ####[facility] [address] [place], [address] Basic Metabolic Profile (BMP) Normal 133-145 [facility] Comment on above: Result Comment: Canc elled via OM: Order cancelled - Patient discharged Performed By: #### L 100.0100, L500.2500 ####[facility] [address] [place], [address] CBC W/Diff, Automatedon 06-0 -2024 Absolute Neut Normal 2.0-7.7 [facility] Comment on above: Result Comment: Canc elled via OM: Order cancelled - Patient discharged Performed By: #### L 100.0100, L500.2500 ####[facility] [address] [place], [address] HCT Normal 37-47 [facility] Comment on above: Result Comment: Canc elled via OM: Order cancelled - Patient discharged Performed By: #### L 100.0100, L500.2500 ####[facility] [address] [place], [address] HGB Normal 12.0-15.0 [facility] Comment on above: Result Comment: Canc elled via OM: Order cancelled - Patient discharged Performed By: #### L 100.0100, L500.2500 ####[facility] [address] [place], [address] MCH Normal 27.0-32.0 [facility] Comment on above: Result Comment: Canc elled via OM: Order cancelled - Patient discharged Performed By: #### L 100.0100, L500.2500 ####[facility] [address] [place], [address] MCHC Normal 32-36 [facility] Comment on above: Result Comment: Canc elled via OM: Order cancelled - Patient discharged Performed By: #### L 100.0100, L500.2500 ####[facility] [address] [place], [address] MCV Normal 81-99 [facility] Comment on above: Result Comment: Canc elled via OM: Order cancelled - Patient discharged Performed By: #### L 100.0100, L500.2500 ####[facility] [address] [place], [address] NEUT% Normal 47-70 [facility] Comment on above: Result Comment: Canc elled via OM: Order cancelled - Patient discharged Performed By: #### L 100.0100, L500.2500 ####[facility] [address] [place], [address] PLT Normal 150-450 [facility] Comment on above: Result Comment: Canc elled via OM: Order cancelled - Patient discharged Performed By: #### L 100.0100, L500.2500 ####[facility] [address] [place], [address] RBC Normal 4.2-5.4 [facility] Comment on above: Result Comment: Canc elled via OM: Order cancelled - Patient discharged Performed By: #### L 100.0100, L500.2500 ####[facility] [address] [place], [address] RDW CV Normal 11.6-14.6 [facility] Comment on above: Result Comment: Canc elled via OM: Order cancelled - Patient discharged Performed By: #### L 100.0100, L500.2500 ####[facility] [address] [place], [address] RDW SD Normal 35.1-43.9 [facility] Comment on above: Result Comment: Canc elled via OM: Order cancelled - Patient discharged Performed By: #### L 100.0100, L500.2500 ####[facility] [address] [place], [address] WBC Normal 4.4-11.0 [facility] Comment on above: Result Comment: Canc elled via OM: Order cancelled - Patient discharged Performed By: #### L 100.0100, L500.2500 ####[facility] [address] [place], [address] Basic Metabolic Profile (BMP )on 01-27-2025 BUN Normal 4-19 [facility] Comment on above: Result Comment: Canc elled via OM: Order cancelled - Patient discharged Performed By: #### L 500.2500, L100.0100 ####[facility] [address] [place], [address] BUN/CRE Normal 10-20 [facility] Comment on above: Result Comment: Canc elled via OM: Order cancelled - Patient discharged Performed By: #### L 500.2500, L100.0100 ####[facility] [address] [place], [address] Calcium Normal 7.6-11.0 [facility] Comment on above: Result Comment: Canc elled via OM: Order cancelled - Patient discharged Performed By: #### L 500.2500, L100.0100 ####[facility] [address] [place], [address] CL Normal 98-108 [facility] Comment on above: Result Comment: Canc elled via OM: Order cancelled - Patient discharged Performed By: #### L 500.2500, L100.0100 ####[facility] [address] [place], [address] CO2 Normal 21.0-32.0 [facility] Comment on above: Result Comment: Canc elled via OM: Order cancelled - Patient discharged Performed By: #### L 500.2500, L100.0100 ####[facility] [address] [place], [address] CREAT,SERUM Normal 0.70-1.20 [facility] Comment on above: Result Comment: Canc elled via OM: Order cancelled - Patient discharged Performed By: #### L 500.2500, L100.0100 ####[facility] [address] [place], [address] eGFR Normal >60 [facility] Comment on above: Result Comment: Canc elled via OM: Order cancelled - Patient discharged Performed By: #### L 500.2500, L100.0100 ####[facility] [address] [place], [address] GAP Normal 5-15 [facility] Comment on above: Result Comment: Canc elled via OM: Order cancelled - Patient discharged Performed By: #### L 500.2500, L100.0100 ####[facility] [address] [place], [address] GLU Normal 70-99 [facility] Comment on above: Result Comment: Canc elled via OM: Order cancelled - Patient discharged Performed By: #### L 500.2500, L100.0100 ####[facility] [address] [place], [address] Potassium Normal 3.3-5.1 [facility] Comment on above: Result Comment: Canc elled via OM: Order cancelled - Patient discharged Performed By: #### L 500.2500, L100.0100 ####[facility] [address] [place], [address] Basic Metabolic Profile (BMP) Normal 133-145 [facility] Comment on above: Result Comment: Canc elled via OM: Order cancelled - Patient discharged Performed By: #### L 500.2500, L100.0100 ####[facility] [address] [place], [address] Bedside Glucoseon 01-27-2025 FINGERSTICK GLU 350 mg/dL High 74-106 [facility] Comment on above: Result Comment: EDGAR GEMENT OF PATIENT CARE PER NURSING PROTOCOL Performed By: #### L 501.080 ####[facility] [address] [place], [address] FINGERSTICK GLU 322 mg/dL High 74-106 [facility] Comment on above: Result Comment: EDGAR GEMENT OF PATIENT CARE PER NURSING PROTOCOL Performed By: #### L 501.080 ####[facility] [address] [place], [address] FINGERSTICK GLU 340 mg/dL High 74-106 [facility] Comment on above: Result Comment: EDGAR GEMENT OF PATIENT CARE PER NURSING PROTOCOL Performed By: #### L 501.080 ####[facility] [address] [place], [address] CBC W/Diff, Automatedon 06-0 Absolute Neut Normal 2.0-7.7 [facility] Comment on above: Result Comment: Canc elled via OM: Order cancelled - Patient discharged Performed By: #### L 500.2500, L100.0100 ####[facility] [address] [place], [address] HCT Normal 37-47 [facility] Comment on above: Result Comment: Canc elled via OM: Order cancelled - Patient discharged Performed By: #### L 500.2500, L100.0100 ####[facility] [address] [place], [address] HGB Normal 12.0-15.0 [facility] Comment on above: Result Comment: Canc elled via OM: Order cancelled - Patient discharged Performed By: #### L 500.2500, L100.0100 ####[facility] [address] [place], [address] MCH Normal 27.0-32.0 [facility] Comment on above: Result Comment: Canc elled via OM: Order cancelled - Patient discharged Performed By: #### L 500.2500, L100.0100 ####[facility] [address] [place], [address] MCHC Normal 32-36 [facility] Comment on above: Result Comment: Canc elled via OM: Order cancelled - Patient discharged Performed By: #### L 500.2500, L100.0100 ####[facility] [address] [place], [address] MCV Normal 81-99 [facility] Comment on above: Result Comment: Canc elled via OM: Order cancelled - Patient discharged Performed By: #### L 500.2500, L100.0100 ####[facility] [address] [place], [address] NEUT% Normal 47-70 [facility] Comment on above: Result Comment: Canc elled via OM: Order cancelled - Patient discharged Performed By: #### L 500.2500, L100.0100 ####[facility] [address] [place], [address] PLT Normal 150-450 [facility] Comment on above: Result Comment: Canc elled via OM: Order cancelled - Patient discharged Performed By: #### L 500.2500, L100.0100 ####[facility] [address] [place], [address] RBC Normal 4.2-5.4 [facility] Comment on above: Result Comment: Canc elled via OM: Order cancelled - Patient discharged Performed By: #### L 500.2500, L100.0100 ####[facility] [address] [place], [address] RDW CV Normal 11.6-14.6 [facility] Comment on above: Result Comment: Canc elled via OM: Order cancelled - Patient discharged Performed By: #### L 500.2500, L100.0100 ####[facility] [address] [place], [address] RDW SD Normal 35.1-43.9 [facility] Comment on above: Result Comment: Canc elled via OM: Order cancelled - Patient discharged Performed By: #### L 500.2500, L100.0100 ####[facility] [address] [place], [address] WBC Normal 4.4-11.0 [facility] Comment on above: Result Comment: Canc elled via OM: Order cancelled - Patient discharged Performed By: #### L 500.2500, L100.0100 ####[facility] [address] [place], [address] Office Visiton 01-27-2025 Follow-up visit [id number] Kathleen Villa 1995 F Date Provider Department Center 01/27/2025 Monica-MISHEL ORTEZ [facility] DE None Family History Problem Relation Age of Onset Anxiety disorder Mother Multiple sclerosis Father Psoriasis Father Family Status - Relation Status Age at Mother Alive Father Alive Level of Service:57227 ND OFFICE/OUTPATIENT ESTABLISHED MOD MDM 30 MIN Reason for Visit and Comments: Skin Lesion [[id number]] - (PKN) Normal [facility] Progress Noteon 01-27-2025 Progress Note DATE OF SERVICE: 01/27/2025 PATIENT NAME: Kathleen Villa : 1995 AGE: 29 y.o. CLINIC NUMBER: [id number] Visit type: Established patient Chief Complaint Patient presents with Skin Lesion (PKN) Subjective HISTORY OF PRESENT ILLNESS: Kathleen Villa is a 29 y.o. who presents to the office for a check up. Patient has never had an FSE before. C/o-skin lesion located on the left cheek x 1-2 years. Patient states the lesion is knight and slightly raised. Admits itching sometimes. Denies changes in size, shape, color. Pt admits hair growth in the mole. Denies previous treatment. F/u psoriasis; Last seen 11/14/2023 by Leesa Huddleston PA-C. Improved, stable since last visit. Currently treating with Skyrizi 150 mg injection every 12 weeks, ketoconazole 2% shampoo, and clobetasol 0.05% solution BID PRN. Patient states she does not use the topicals because they never worked for her. Pt states the Skyrizi keeps her skin pretty clear. Patient self administers injections at home without complications. Start date 02/2021. Last injection 01/15/2025. Last labs 08/15/2023. Denies flares currently. Denies redness, flaking, scaling. Denies itching, burning, pain. Admits joint pain/ joint stiffness to the knees, hips elbows. Patient states this is chronic and normal for her, denies worsening of pain. Follow up folliculitis of the lower legs; stable since last visit. Currently treating with clindamycin lotion daily as needed. Pt admits improvement with medication and requesting refills. Patient has no h/o of ATN. Patient has no h/o of AKs. Patient has no personal h/o skin cancer. Patient has family h/o melanoma: maternal aunt. Are you or ? No History of pacemaker/ defibrillator? No History of HIV/ Hep C? No Allergies to Lidocaine, Epinephrine, Latex or Adhesive? Yes- adhesives. Social History: Born/raised in [place]. Excessive sun exposure: Yes Used tanning beds: No Patient does wear SPF. Patient does use additional sun protection measures. Review of Systems Dermatology: as per HPI, otherwise negative Vitals: 01/27/25 1308 BP: 134/87 Pulse: 98 PHYSICAL EXAM: GENERAL APPEARANCE:?alert and oriented x3, well developed and well nourished. PSYCH: appropriate mood and affect DERMATOLOGY: Skin Exam 1. PSORIASIS VULGARIS Head - Anterior (Face) Skin clear on exam [x]Chronic []Acute [x]Stable []Flaring/Exacerbation Educated and reassured. Treatment options, risks, benefits, and expectations reviewed. Patient stopped using the ketoconazole shampoo and clobetasol solution. Pt states the Skyrizi keeps her skin clear. Biologic labs ordered today. Continue: -Skyrizi 150 mg injection every 12 weeks. 2. FOLLICULITIS Left Leg, Right Leg Clear on exam [x]Chronic []Acute [x]Stable []Flaring/Exacerbation Educated and reassured. Treatment options, risks, benefits, and expectations reviewed. Continue: -clindamycin lotion prn flares Related Medications clindamycin (Cleocin-T) 1 % lotion Apply thin layer to affected areas of bilateral legs every day. 3. 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 Educated that if the lesion changes color, becomes larger, bleeds, becomes bothersome or painful then it should be reevaluated. Patient expresses understanding and is agreeable to plan. Patient advised to perform monthly skin exams; checking the skin for any new or changing lesions. Any lesions that are new, elevated, firm and/or growing should be evaluated in our office. Also look for ABCDEs of Melanoma (warning signs): Asymmetry- the appearance of one side of the mole doesn't look like the other side. Borders- the borders of the mole are jagged, notched or smeared. Color- there are multiple colors in the mole, or it has changed colors. It can become darker, red or even lose pigment. Diameter- diameter greater than 6mm or the size of a pencil eraser. Evolution- Any change or evolving in size, shape or color of a mole. Also, any new symptom like bleeding, pain or itching may be a warning sign. You can visit the [employer] at skincancer.org for more information on melanoma and other skin cancers. 4. SEBORRHEIC KERATOSIS Generalized Knight-brown waxy papule(s) and plaque(s) Reassured that this is a benign lesion and does not require any treatment. Educated that if the lesion changes color, becomes larger, bleeds, becomes bothersome or painful then it should be reevaluated. Patient expresses understanding and is agreeable to plan. 5. SOLAR LENTIGO Generalized Light brown well-circumscribed macule(s) Educated and reassured, benign finding secondary to sun exposure. Patien (more content not included)... Normal [facility] Basic Metabolic Profile (BMP )on 01-26-2025 BUN/CRE 7.8 RATIO Low 10-20 [facility] Comment on above: Performed By: #### L 500.2500, L100.0100 ####[facility] [address] [place], [address] Calcium [Mass/Vol] 8.5 mg/dL Normal 7.6-11.0 [facility] Comment on above: Performed By: #### L 500.2500, L100.0100 ####[facility] [address] [place], [address] Chloride [Moles/Vol] 97 mmol/L Low 98-108 [facility] Comment on above: Performed By: #### L 500.2500, L100.0100 ####[facility] [address] [place], [address] CO2 [Moles/Vol] 12.9 mmol/L Low 21.0-32.0 [facility] Comment on above: Performed By: #### L 500.2500, L100.0100 ####[facility] [address] [place], [address] Creatinine [Mass/Vol] 0.76 mg/dL Normal 0.70-1.20 [facility] Comment on above: Performed By: #### L 500.2500, L100.0100 ####[facility] [address] [place], [address] ECRCL 109.19 ml/min Normal 50-250 [facility] Comment on above: Performed By: #### L 500.2500, L100.0100 ####[facility] [address] [place], [address] GAP 24 High 5-15 [facility] Comment on above: Performed By: #### L 500.2500, L100.0100 ####[facility] [address] [place], [address] GFR/1.73 sq M.predicted among non-blacks MDRD (S/P/Bld) [Vol rate/Area] 109 mL/min/{1.73_m2} Normal >60 [facility] Comment on above: Result Comment: mL/m in/1.73m2 CKD-EPI Creatinine Equation (2020) Performed By: #### L 500.2500, L100.0100 ####[facility] [address] [place], [address] Glucose [Mass/Vol] 315 mg/dL High 70-99 [facility] Comment on above: Performed By: #### L 500.2500, L100.0100 ####[facility] [address] [place], [address] Potassium [Moles/Vol] 3.0 mmol/L Low 3.3-5.1 [facility] Comment on above: Performed By: #### L 500.2500, L100.0100 ####[facility] [address] [place], [address] Sodium [Moles/Vol] 133 mmol/L Normal 133-145 [facility] Comment on above: Performed By: #### L 500.2500, L100.0100 ####[facility] [address] [place], [address] Urea nitrogen [Mass/Vol] 6 mg/dL Normal 4-19 [facility] Comment on above: Performed By: #### L 500.2500, L100.0100 ####[facility] [address] [place], [address] Bedside Glucoseon 01-26-2024 FINGERSTICK GLU 328 mg/dL High 74-106 [facility] Comment on above: Result Comment: EDGAR GEMENT OF PATIENT CARE PER NURSING PROTOCOL Performed By: #### L 501.080 ####[facility] [address] [place], [address] FINGERSTICK GLU 306 mg/dL High 74-106 [facility] Comment on above: Result Comment: EDGAR GEMENT OF PATIENT CARE PER NURSING PROTOCOL Performed By: #### L 501.080 ####[facility] [address] [place], [address] CBC W/Diff, Automatedon 06-0 Absolute Lymph 1.50 X10 3/uL Normal 0.83-4.51 [facility] Comment on above: Performed By: #### L 500.2500, L100.0100 ####[facility] [address] [place], [address] Absolute Neut 13.5 X10 3/uL High 2.0-7.7 [facility] Comment on above: Performed By: #### L 500.2500, L100.0100 ####[facility] [address] [place], [address] Basophils/100 WBC (Bld) 0.3 % Normal 0-1 [facility] Comment on above: Performed By: #### L 500.2500, L100.0100 ####[facility] [address] [place], [address] Eosinophils/100 WBC (Bld) 0.0 % Normal 0-5 [facility] Comment on above: Performed By: #### L 500.2500, L100.0100 ####[facility] [address] [place], [address] Erythrocyte distribution width (RBC) [Ratio] 13.1 % Normal 11.6-14.6 [facility] Comment on above: Performed By: #### L 500.2500, L100.0100 ####[facility] [address] [place], [address] Hematocrit (Bld) [Volume fraction] 38.8 % Normal 37-47 [facility] Comment on above: Performed By: #### L 500.2500, L100.0100 ####[facility] [address] [place], [address] Hemoglobin (Bld) [Mass/Vol] 13.4 g/dL Normal 12.0-15.0 [facility] Comment on above: Performed By: #### L 500.2500, L100.0100 ####[facility] [address] [place], [address] IG% 1.300 High 0.0-0.9 [facility] Comment on above: Result Comment: IG% - Immature Granulocytes (promyelocytes, myelocytes andmetamyelocytes) > 1% indicates that a LEFT SHIFT is Present. Performed By: #### L 500.2500, L100.0100 ####[facility] [address] [place], [address] Lymphocytes/100 WBC (Bld) 9.3 % Low 19-41 [facility] Comment on above: Performed By: #### L 500.2500, L100.0100 ####[facility] [address] [place], [address] MCH (RBC) [Entitic mass] 30.0 pg Normal 27.0-32.0 [facility] Comment on above: Performed By: #### L 500.2500, L100.0100 ####[facility] [address] [place], [address] MCHC (RBC) [Mass/Vol] 34.5 g/dL Normal 32-36 [facility] Comment on above: Performed By: #### L 500.2500, L100.0100 ####[facility] [address] [place], [address] MCV (RBC) [Entitic vol] 86.8 fL Normal 81-99 [facility] Comment on above: Performed By: #### L 500.2500, L100.0100 ####[facility] [address] [place], [address] Monocytes/100 WBC (Bld) 5.2 % Normal 0-10 [facility] Comment on above: Performed By: #### L 500.2500, L100.0100 ####[facility] [address] [place], [address] Neutrophils/100 WBC (Bld) 83.9 % High 47-70 [facility] Comment on above: Performed By: #### L 500.2500, L100.0100 ####[facility] [address] [place], [address] Nucleated RBC (Bld) [#/Vol] 0 10*3/uL Normal 0-5 [facility] Comment on above: Performed By: #### L 500.2500, L100.0100 ####[facility] [address] [place], [address] Platelet mean volume (Bld) [Entitic vol] 11.5 fL Normal 6.2-12.0 [facility] Comment on above: Performed By: #### L 500.2500, L100.0100 ####[facility] [address] [place], [address] Platelets (Bld) [#/Vol] 169 10*3/uL Normal 150-450 [facility] Comment on above: Performed By: #### L 500.2500, L100.0100 ####[facility] [address] [place], [address] RBC (Bld) [#/Vol] 4.47 10*6/uL Normal 4.2-5.4 [facility] Comment on above: Performed By: #### L 500.2500, L100.0100 ####[facility] [address] [place], [address] RDW SD 41.1 fl Normal 35.1-43.9 [facility] Comment on above: Performed By: #### L 500.2500, L100.0100 ####[facility] [address] [place], [address] WBC (Bld) [#/Vol] 16.1 10*3/uL High 4.4-11.0 [facility] Comment on above: Performed By: #### L 500.2500, L100.0100 ####[facility] [address] [place], [address] Discharge Instructionon 06-0 Discharge Instruction Normal [facility] Basic Metabolic Profile (BMP )on 01-25-2025 BUN/CRE 8.0 RATIO Low 10-20 [facility] Comment on above: Performed By: #### L 500.2500, L100.0100 ####[facility] [address] [place], [address] Calcium [Mass/Vol] 8.1 mg/dL Normal 7.6-11.0 [facility] Comment on above: Performed By: #### L 500.2500, L100.0100 ####[facility] [address] [place], [address] Chloride [Moles/Vol] 100 mmol/L Normal 98-108 [facility] Comment on above: Performed By: #### L 500.2500, L100.0100 ####[facility] [address] [place], [address] CO2 [Moles/Vol] 14.7 mmol/L Low 21.0-32.0 [facility] Comment on above: Performed By: #### L 500.2500, L100.0100 ####[facility] [address] [place], [address] Creatinine [Mass/Vol] 0.66 mg/dL Low 0.70-1.20 [facility] Comment on above: Performed By: #### L 500.2500, L100.0100 ####[facility] [address] [place], [address] ECRCL 125.73 ml/min Normal 50-250 [facility] Comment on above: Performed By: #### L 500.2500, L100.0100 ####[facility] [address] [place], [address] GAP 22 High 5-15 [facility] Comment on above: Performed By: #### L 500.2500, L100.0100 ####[facility] [address] [place], [address] GFR/1.73 sq M.predicted among non-blacks MDRD (S/P/Bld) [Vol rate/Area] 121 mL/min/{1.73_m2} Normal >60 [facility] Comment on above: Result Comment: mL/m in/1.73m2 CKD-EPI Creatinine Equation (2020) Performed By: #### L 500.2500, L100.0100 ####[facility] [address] [place], [address] Glucose [Mass/Vol] 287 mg/dL High 70-99 [facility] Comment on above: Performed By: #### L 500.2500, L100.0100 ####[facility] [address] [place], [address] Potassium [Moles/Vol] 2.9 mmol/L Low 3.3-5.1 [facility] Comment on above: Performed By: #### L 500.2500, L100.0100 ####[facility] [address] [place], [address] Sodium [Moles/Vol] 136 mmol/L Normal 133-145 [facility] Comment on above: Performed By: #### L 500.2500, L100.0100 ####[facility] [address] [place], [address] Urea nitrogen [Mass/Vol] 5 mg/dL Normal 4-19 [facility] Comment on above: Performed By: #### L 500.2500, L100.0100 ####[facility] [address] [place], [address] Bedside Glucoseon --2024 FINGERSTICK GLU 352 mg/dL High 74-106 [facility] Comment on above: Result Comment: EDGAR GEMENT OF PATIENT CARE PER NURSING PROTOCOL Performed By: #### L 501.080 ####[facility] [address] [place], [address] FINGERSTICK GLU 220 mg/dL High 74-106 [facility] Comment on above: Result Comment: EDGAR GEMENT OF PATIENT CARE PER NURSING PROTOCOL Performed By: #### L 501.080 ####[facility] [address] [place], [address] CBC W/Diff, Automatedon 05- Absolute Lymph 1.08 X10 3/uL Normal 0.83-4.51 [facility] Comment on above: Performed By: #### L 500.2500, L100.0100 ####[facility] [address] [place], [address] Absolute Neut 19.8 X10 3/uL High 2.0-7.7 [facility] Comment on above: Performed By: #### L 500.2500, L100.0100 ####[facility] [address] [place], [address] Basophils/100 WBC (Bld) 0.2 % Normal 0-1 [facility] Comment on above: Performed By: #### L 500.2500, L100.0100 ####[facility] [address] [place], [address] Eosinophils/100 WBC (Bld) 0.0 % Normal 0-5 [facility] Comment on above: Performed By: #### L 500.2500, L100.0100 ####[facility] [address] [place], [address] Erythrocyte distribution width (RBC) [Ratio] 12.9 % Normal 11.6-14.6 [facility] Comment on above: Performed By: #### L 500.2500, L100.0100 ####[facility] [address] [place], [address] Hematocrit (Bld) [Volume fraction] 32.9 % Low 37-47 [facility] Comment on above: Performed By: #### L 500.2500, L100.0100 ####[facility] [address] [place], [address] Hemoglobin (Bld) [Mass/Vol] 11.3 g/dL Low 12.0-15.0 [facility] Comment on above: Performed By: #### L 500.2500, L100.0100 ####[facility] [address] [place], [address] IG% 1.100 High 0.0-0.9 [facility] Comment on above: Result Comment: IG% - Immature Granulocytes (promyelocytes, myelocytes andmetamyelocytes) > 1% indicates that a LEFT SHIFT is Present. Performed By: #### L 500.2500, L100.0100 ####[facility] [address] [place], [address] Lymphocytes/100 WBC (Bld) 4.8 % Low 19-41 [facility] Comment on above: Performed By: #### L 500.2500, L100.0100 ####[facility] [address] [place], [address] MCH (RBC) [Entitic mass] 29.7 pg Normal 27.0-32.0 [facility] Comment on above: Performed By: #### L 500.2500, L100.0100 ####[facility] [address] [place], [address] MCHC (RBC) [Mass/Vol] 34.3 g/dL Normal 32-36 [facility] Comment on above: Performed By: #### L 500.2500, L100.0100 ####[facility] [address] [place], [address] MCV (RBC) [Entitic vol] 86.6 fL Normal 81-99 [facility] Comment on above: Performed By: #### L 500.2500, L100.0100 ####[facility] [address] [place], [address] Monocytes/100 WBC (Bld) 6.8 % Normal 0-10 [facility] Comment on above: Performed By: #### L 500.2500, L100.0100 ####[facility] [address] [place], [address] Neutrophils/100 WBC (Bld) 87.1 % High 47-70 [facility] Comment on above: Performed By: #### L 500.2500, L100.0100 ####[facility] [address] [place], [address] Nucleated RBC (Bld) [#/Vol] 0 10*3/uL Normal 0-5 [facility] Comment on above: Performed By: #### L 500.2500, L100.0100 ####[facility] [address] [place], [address] Platelet mean volume (Bld) [Entitic vol] 12.0 fL Normal 6.2-12.0 [facility] Comment on above: Performed By: #### L 500.2500, L100.0100 ####[facility] [address] [place], [address] Platelets (Bld) [#/Vol] 129 10*3/uL Low 150-450 [facility] Comment on above: Performed By: #### L 500.2500, L100.0100 ####[facility] [address] [place], [address] RBC (Bld) [#/Vol] 3.80 10*6/uL Low 4.2-5.4 [facility] Comment on above: Performed By: #### L 500.2500, L100.0100 ####[facility] [address] [place], [address] RDW SD 40.6 fl Normal 35.1-43.9 [facility] Comment on above: Performed By: #### L 500.2500, L100.0100 ####[facility] [address] [place], [address] WBC (Bld) [#/Vol] 22.7 10*3/uL High 4.4-11.0 [facility] Comment on above: Performed By: #### L 500.2500, L100.0100 ####[facility] [address] [place], [address] Magnesiumon 01-25-2025 Magnesium [Mass/Vol] 1.6 mg/dL Normal 1.5-2.2 [facility] Comment on above: Performed By: #### L 501.5200, L501.2300 ####[facility] [address] [place], [address] Phosphoruson 01-25-2025 Phosphate [Mass/Vol] 2.1 mg/dL Low 2.7-4.5 [facility] Comment on above: Performed By: #### L 501.5200, L501.2300 ####[facility] [address] [place], [address] Basic Metabolic Profile (BMP )on 01-24-2025 BUN/CRE 6.3 RATIO Low 10-20 [facility] Comment on above: Performed By: #### L 500.2500 ####[facility] [address] [place], [address] Calcium [Mass/Vol] 7.6 mg/dL Normal 7.6-11.0 [facility] Comment on above: Performed By: #### L 500.2500 ####[facility] [address] [place], [address] Chloride [Moles/Vol] 111 mmol/L High 98-108 [facility] Comment on above: Performed By: #### L 500.2500 ####[facility] [address] [place], [address] CO2 [Moles/Vol] 18.8 mmol/L Low 21.0-32.0 [facility] Comment on above: Performed By: #### L 500.2500 ####[facility] [address] [place], [address] Creatinine [Mass/Vol] 0.64 mg/dL Low 0.70-1.20 [facility] Comment on above: Performed By: #### L 500.2500 ####[facility] [address] [place], [address] ECRCL 129.66 ml/min Normal 50-250 [facility] Comment on above: Performed By: #### L 500.2500 ####[facility] [address] [place], [address] GAP 6 Normal 5-15 [facility] Comment on above: Performed By: #### L 500.2500 ####[facility] [address] [place], [address] GFR/1.73 sq M.predicted among non-blacks MDRD (S/P/Bld) [Vol rate/Area] 122 mL/min/{1.73_m2} Normal >60 [facility] Comment on above: Result Comment: mL/m in/1.73m2 CKD-EPI Creatinine Equation (2020) Performed By: #### L 500.2500 ####[facility] [address] [place], [address] Glucose [Mass/Vol] 182 mg/dL High 70-99 [facility] Comment on above: Performed By: #### L 500.2500 ####[facility] [address] [place], [place], [address] Potassium [Moles/Vol] 3.9 mmol/L Normal 3.3-5.1 [facility] Comment on above: Performed By: #### L 500.2500 ####[facility] [address] [place], [address] Sodium [Moles/Vol] 136 mmol/L Normal 133-145 [facility] Comment on above: Performed By: #### L 500.2500 ####[facility] [address] [place], [address] Urea nitrogen [Mass/Vol] 4 mg/dL Normal 4-19 [facility] Comment on above: Performed By: #### L 500.2500 ####[facility] [address] [place], [address] CO2 [Moles/Vol] 9.9 mmol/L Invalid Interpretation Code 21.0-32.0 [facility] Comment on above: Order Comment: Call MD with results STAT Result Comment: Crit ical Result(s) Called at: 01/23/2025-0533 by: ROSLYN ARIAS.???Results read back by same. AMENDED REPORT 01/24/25 0107 CO2 previously reported as: 9.9 *L mmol/LCritical Result(s) Called at: by:??Results read back bysame.Critical Result(s) Called at:0533 by: ROSLYN HAVEGaby TO CELSOAMILLER??Results read back by same.Critical Result(s) Called at: by:??Results read back bysame.Critical Result(s) Called at: by:??Results read back bysame.Critical Result(s) Called at:0533 by: ROSLYN HAVEN TO CELSOAMILLER??Results read back by same.Critical Result(s) Called at:01/24/2025-00:50 by: Flor.??Results read back by same. Performed By: #### L 500.2500 ####[facility] [address] [place], [address] BUN/CRE 8.6 RATIO Low 10-20 [facility] Comment on above: Order Comment: Call MD with results STAT Performed By: #### L 500.2500 ####[facility] [address] [place], [address] Calcium [Mass/Vol] 7.8 mg/dL Normal 7.6-11.0 [facility] Comment on above: Order Comment: Call MD with results STAT Performed By: #### L 500.2500 ####[facility] [address] [place], [address] Chloride [Moles/Vol] 113 mmol/L High 98-108 [facility] Comment on above: Order Comment: Call MD with results STAT Performed By: #### L 500.2500 ####[facility] [address] [place], [address] CO2 [Moles/Vol] 18.6 mmol/L Low 21.0-32.0 [facility] Comment on above: Order Comment: Call MD with results STAT Performed By: #### L 500.2500 ####[facility] [address] [place], [address] Creatinine [Mass/Vol] 0.65 mg/dL Low 0.70-1.20 [facility] Comment on above: Order Comment: Call MD with results STAT Performed By: #### L 500.2500 ####[facility] [address] [place], [address] ECRCL 127.66 ml/min Normal 50-250 [facility] Comment on above: Order Comment: Call MD with results STAT Performed By: #### L 500.2500 ####[facility] [address] [place], [address] GAP 9 Normal 5-15 [facility] Comment on above: Order Comment: Call MD with results STAT Performed By: #### L 500.2500 ####[facility] [address] [place], [address] GFR/1.73 sq M.predicted among non-blacks MDRD (S/P/Bld) [Vol rate/Area] 121 mL/min/{1.73_m2} Normal >60 [facility] Comment on above: Order Comment: Call MD with results STAT Result Comment: mL/m in/1.73m2 CKD-EPI Creatinine Equation (2020) Performed By: #### L 500.2500 ####[facility] [address] [place], [address] Glucose [Mass/Vol] 121 mg/dL High 70-99 [facility] Comment on above: Order Comment: Call MD with results STAT Performed By: #### L 500.2500 ####[facility] [address] [place], [address] Potassium [Moles/Vol] 2.9 mmol/L Low 3.3-5.1 [facility] Comment on above: Order Comment: Call MD with results STAT Performed By: #### L 500.2500 ####[facility] [address] [place], [address] Sodium [Moles/Vol] 141 mmol/L Normal 133-145 [facility] Comment on above: Order Comment: Call MD with results STAT Performed By: #### L 500.2500 ####[facility] [address] [place], [address] Urea nitrogen [Mass/Vol] 6 mg/dL Normal 4-19 [facility] Comment on above: Order Comment: Call MD with results STAT Performed By: #### L 500.2500 ####[facility] [address] [place], [address] Bedside Glucoseon 01-24-2025 FINGERSTICK GLU 304 mg/dL High [address] [place] [address] Comment on above: Result Comment: EDGAR GEMENT OF PATIENT CARE PER NURSING PROTOCOL Performed By: #### L 501.080 ####[facility] [address] [place], [address] FINGERSTICK GLU 239 mg/dL High [address] [place] [address] Comment on above: Result Comment: EDGAR GEMENT OF PATIENT CARE PER NURSING PROTOCOL Performed By: #### L 501.080 ####[facility] [address] [place], [address] FINGERSTICK GLU 400 mg/dL High [address] [place] [address] Comment on above: Result Comment: EDGAR GEMENT OF PATIENT CARE PER NURSING PROTOCOL Performed By: #### L 501.080 ####[facility] [address] [place], [address] FINGERSTICK GLU 309 mg/dL High [address] [place] [address] Comment on above: Result Comment: EDGAR GEMENT OF PATIENT CARE PER NURSING PROTOCOL Performed By: #### L 501.080 ####[facility] [address] [place], [address] FINGERSTICK GLU 261 mg/dL High [address] [place] [address] Comment on above: Result Comment: EDGRA GEMENT OF PATIENT CARE PER NURSING PROTOCOL Performed By: #### L 501.080 ####[facility] [address] [place], [address] FINGERSTICK GLU 129 mg/dL High 74-106 [facility] Comment on above: Result Comment: EDGAR GEMENT OF PATIENT CARE PER NURSING PROTOCOL Performed By: #### L 501.080 ####[facility] [address] [place], [address] FINGERSTICK GLU 177 mg/dL High 74-106 [facility] Comment on above: Result Comment: EDGAR GEMENT OF PATIENT CARE PER NURSING PROTOCOL Performed By: #### L 501.080 ####[facility] [address] [place], [address] FINGERSTICK GLU 167 mg/dL High 74-106 [facility] Comment on above: Result Comment: EDGAR GEMENT OF PATIENT CARE PER NURSING PROTOCOL Performed By: #### L 501.080 ####[facility] [address] [place], [address] FINGERSTICK GLU 172 mg/dL High 74-106 [facility] Comment on above: Result Comment: EDGAR GEMENT OF PATIENT CARE PER NURSING PROTOCOL Performed By: #### L 501.080 ####[facility] [address] [place], [address] FINGERSTICK GLU 156 mg/dL High 74-106 [facility] Comment on above: Result Comment: EDGAR GEMENT OF PATIENT CARE PER NURSING PROTOCOL Performed By: #### L 501.080 ####[facility] [address] [place], [address] FINGERSTICK GLU 123 mg/dL High 74-106 [facility] Comment on above: Result Comment: EDGAR GEMENT OF PATIENT CARE PER NURSING PROTOCOL Performed By: #### L 501.080 ####[facility] [address] [place], [address] FINGERSTICK GLU 97 mg/dL Normal 74-106 [facility] Comment on above: Result Comment: EDGAR GEMENT OF PATIENT CARE PER NURSING PROTOCOL Performed By: #### L 501.080 ####[facility] [address] [place], [address] FINGERSTICK GLU 115 mg/dL High 74-106 [facility] Comment on above: Result Comment: EDGAR GEMENT OF PATIENT CARE PER NURSING PROTOCOL Performed By: #### L 501.080 ####[facility] [address] [place], [address] FINGERSTICK GLU 143 mg/dL High 74-106 [facility] Comment on above: Result Comment: EDGAR GEMENT OF PATIENT CARE PER NURSING PROTOCOL Performed By: #### L 501.080 ####[facility] [address] [place], [address] CBC W/Diff, Automatedon 05-3 SMEAR COMMENT COMMENT Normal [facility] Comment on above: Result Comment: LYMP HOPENIA. Performed By: #### L 100.0100 ####[facility] [address] [place], [address] PLT EST MOD DEC Normal ADEQ [facility] Comment on above: Performed By: #### L 100.0100 ####[facility] [address] [place], [address] Basic Metabolic Profile (BMP )on 01-23-2025 BUN/CRE 11.7 RATIO Normal 10-20 [facility] Comment on above: Order Comment: Call MD with results STAT Performed By: #### L 500.2500 ####[facility] [address] [place], [address] Calcium [Mass/Vol] 7.7 mg/dL Normal 7.6-11.0 [facility] Comment on above: Order Comment: Call MD with results STAT Performed By: #### L 500.2500 ####[facility] [address] [place], [address] Chloride [Moles/Vol] 112 mmol/L High 98-108 [facility] Comment on above: Order Comment: Call MD with results STAT Performed By: #### L 500.2500 ####[facility] [address] [place], [address] CO2 [Moles/Vol] 16.8 mmol/L Low 21.0-32.0 [facility] Comment on above: Order Comment: Call MD with results STAT Performed By: #### L 500.2500 ####[facility] [address] [place], [address] Creatinine [Mass/Vol] 0.64 mg/dL Low 0.70-1.20 [facility] Comment on above: Order Comment: Call MD with results STAT Performed By: #### L 500.2500 ####[facility] [address] [place], [address] ECRCL 129.66 ml/min Normal 50-250 [facility] Comment on above: Order Comment: Call MD with results STAT Performed By: #### L 500.2500 ####[facility] [address] [place], [address] GAP 10 Normal 5-15 [facility] Comment on above: Order Comment: Call MD with results STAT Performed By: #### L 500.2500 ####[facility] [address] [place], [address] GFR/1.73 sq M.predicted among non-blacks MDRD (S/P/Bld) [Vol rate/Area] 122 mL/min/{1.73_m2} Normal >60 [facility] Comment on above: Order Comment: Call MD with results STAT Result Comment: mL/m in/1.73m2 CKD-EPI Creatinine Equation (2020) Performed By: #### L 500.2500 ####[facility] [address] [place], [address] Glucose [Mass/Vol] 150 mg/dL High 70-99 [facility] Comment on above: Order Comment: Call MD with results STAT Performed By: #### L 500.2500 ####[facility] [address] [place], [address] Potassium [Moles/Vol] 3.2 mmol/L Low 3.3-5.1 [facility] Comment on above: Order Comment: Call MD with results STAT Performed By: #### L 500.2500 ####[facility] [address] [place], [address] Sodium [Moles/Vol] 139 mmol/L Normal 133-145 [facility] Comment on above: Order Comment: Call MD with results STAT Performed By: #### L 500.2500 ####[facility] [address] [place], [address] Urea nitrogen [Mass/Vol] 8 mg/dL Normal 4-19 [facility] Comment on above: Order Comment: Call MD with results STAT Performed By: #### L 500.2500 ####[facility] [address] [place], [address] BUN/CRE 14.4 RATIO Normal 10-20 [facility] Comment on above: Order Comment: Call MD with results STAT Performed By: #### L 500.2500 ####[facility] [address] [place], [address] Calcium [Mass/Vol] 7.5 mg/dL Low 7.6-11.0 [facility] Comment on above: Order Comment: Call MD with results STAT Performed By: #### L 500.2500 ####[facility] [address] [place], [address] Chloride [Moles/Vol] 112 mmol/L High 98-108 [facility] Comment on above: Order Comment: Call MD with results STAT Performed By: #### L 500.2500 ####[facility] [address] [place], [address] CO2 [Moles/Vol] 13.6 mmol/L Low 21.0-32.0 [facility] Comment on above: Order Comment: Call MD with results STAT Performed By: #### L 500.2500 ####[facility] [address] [place], [address] Creatinine [Mass/Vol] 0.69 mg/dL Low 0.70-1.20 [facility] Comment on above: Order Comment: Call MD with results STAT Performed By: #### L 500.2500 ####[facility] [address] [place], [address] ECRCL 120.26 ml/min Normal 50-250 [facility] Comment on above: Order Comment: Call MD with results STAT Performed By: #### L 500.2500 ####[facility] [address] [place], [address] GAP 13 Normal 5-15 [facility] Comment on above: Order Comment: Call MD with results STAT Performed By: #### L 500.2500 ####[facility] [address] [place], [address] GFR/1.73 sq M.predicted among non-blacks MDRD (S/P/Bld) [Vol rate/Area] 120 mL/min/{1.73_m2} Normal >60 [facility] Comment on above: Order Comment: Call MD with results STAT Result Comment: mL/m in/1.73m2 CKD-EPI Creatinine Equation (2020) Performed By: #### L 500.2500 ####[facility] [address] [place], [address] Glucose [Mass/Vol] 139 mg/dL High 70-99 [facility] Comment on above: Order Comment: Call MD with results STAT Performed By: #### L 500.2500 ####[facility] [address] [place], [address] Potassium [Moles/Vol] 3.4 mmol/L Normal 3.3-5.1 [facility] Comment on above: Order Comment: Call MD with results STAT Performed By: #### L 500.2500 ####[facility] [address] [place], [address] Sodium [Moles/Vol] 139 mmol/L Normal 133-145 [facility] Comment on above: Order Comment: Call MD with results STAT Performed By: #### L 500.2500 ####[facility] [address] [place], [address] Urea nitrogen [Mass/Vol] 10 mg/dL Normal 4-19 [facility] Comment on above: Order Comment: Call MD with results STAT Performed By: #### L 500.2500 ####[facility] [address] [place], [address] BUN/CRE 16.3 RATIO Normal 10-20 [facility] Comment on above: Order Comment: Call MD with results STAT Performed By: #### L 500.2500 ####[facility] [address] [place], [address] Calcium [Mass/Vol] 7.6 mg/dL Normal 7.6-11.0 [facility] Comment on above: Order Comment: Call MD with results STAT Performed By: #### L 500.2500 ####[facility] [address] [place], [address] Chloride [Moles/Vol] 110 mmol/L High 98-108 [facility] Comment on above: Order Comment: Call MD with results STAT Performed By: #### L 500.2500 ####[facility] [address] [place], [address] CO2 [Moles/Vol] 12.5 mmol/L Low 21.0-32.0 [facility] Comment on above: Order Comment: Call MD with results STAT Performed By: #### L 500.2500 ####[facility] [address] [place], [address] Creatinine [Mass/Vol] 0.72 mg/dL Normal 0.70-1.20 [facility] Comment on above: Order Comment: Call MD with results STAT Performed By: #### L 500.2500 ####[facility] [address] [place], [address] ECRCL 115.25 ml/min Normal 50-250 [facility] Comment on above: Order Comment: Call MD with results STAT Performed By: #### L 500.2500 ####[facility] [address] [place], [address] GAP 16 High 5-15 [facility] Comment on above: Order Comment: Call MD with results STAT Performed By: #### L 500.2500 ####[facility] [address] [place], [address] GFR/1.73 sq M.predicted among non-blacks MDRD (S/P/Bld) [Vol rate/Area] 115 mL/min/{1.73_m2} Normal >60 [facility] Comment on above: Order Comment: Call MD with results STAT Result Comment: mL/m in/1.73m2 CKD-EPI Creatinine Equation (2020) Performed By: #### L 500.2500 ####[facility] [address] [place], [address] Glucose [Mass/Vol] 176 mg/dL High 70-99 [facility] Comment on above: Order Comment: Call MD with results STAT Performed By: #### L 500.2500 ####[facility] [address] [place], [address] Potassium [Moles/Vol] 3.7 mmol/L Normal 3.3-5.1 [facility] Comment on above: Order Comment: Call MD with results STAT Performed By: #### L 500.2500 ####[facility] [address] [place], [address] Sodium [Moles/Vol] 138 mmol/L Normal 133-145 [facility] Comment on above: Order Comment: Call MD with results STAT Performed By: #### L 500.2500 ####[facility] [address] [place], [address] Urea nitrogen [Mass/Vol] 12 mg/dL Normal 4-19 [facility] Comment on above: Order Comment: Call MD with results STAT Performed By: #### L 500.2500 ####[facility] [address] [place], [address] BUN/CRE 16.2 RATIO Normal 10-20 [facility] Comment on above: Order Comment: Call MD with results STAT Performed By: #### L 500.2500 ####[facility] [address] [place], [address] Calcium [Mass/Vol] 7.6 mg/dL Normal 7.6-11.0 [facility] Comment on above: Order Comment: Call MD with results STAT Performed By: #### L 500.2500 ####[facility] [address] [place], [address] Chloride [Moles/Vol] 111 mmol/L High 98-108 [facility] Comment on above: Order Comment: Call MD with results STAT Performed By: #### L 500.2500 ####[facility] [address] [place], [address] CO2 [Moles/Vol] 11.0 mmol/L Low 21.0-32.0 [facility] Comment on above: Order Comment: Call MD with results STAT Performed By: #### L 500.2500 ####[facility] [address] [place], [address] Creatinine [Mass/Vol] 0.81 mg/dL Normal 0.70-1.20 [facility] Comment on above: Order Comment: Call MD with results STAT Performed By: #### L 500.2500 ####[facility] [address] [place], [address] ECRCL 102.45 ml/min Normal 50-250 [facility] Comment on above: Order Comment: Call MD with results STAT Performed By: #### L 500.2500 ####[facility] [address] [place], [address] GAP 18 High 5-15 [facility] Comment on above: Order Comment: Call MD with results STAT Performed By: #### L 500.2500 ####[facility] [address] [place], [address] GFR/1.73 sq M.predicted among non-blacks MDRD (S/P/Bld) [Vol rate/Area] 100 mL/min/{1.73_m2} Normal >60 [facility] Comment on above: Order Comment: Call MD with results STAT Result Comment: mL/m in/1.73m2 CKD-EPI Creatinine Equation (2020) Performed By: #### L 500.2500 ####[facility] [address] [place], [address] Glucose [Mass/Vol] 209 mg/dL High 70-99 [facility] Comment on above: Order Comment: Call MD with results STAT Performed By: #### L 500.2500 ####[facility] [address] [place], [address] Potassium [Moles/Vol] 4.5 mmol/L Normal 3.3-5.1 [facility] Comment on above: Order Comment: Call MD with results STAT Result Comment: Hemo lysis present, Results??could be affected.?? Performed By: #### L 500.2500 ####[facility] [address] [place], [address] Sodium [Moles/Vol] 140 mmol/L Normal 133-145 [facility] Comment on above: Order Comment: Call MD with results STAT Performed By: #### L 500.2500 ####[facility] [address] [place], [address] Urea nitrogen [Mass/Vol] 13 mg/dL Normal 4-19 [facility] Comment on above: Order Comment: Call MD with results STAT Performed By: #### L 500.2500 ####[facility] [address] [place], [address] BUN/CRE 21.2 RATIO High 10-20 [facility] Comment on above: Order Comment: Call MD with results STAT Performed By: #### L 500.2500 ####[facility] [address] [place], [address] Calcium [Mass/Vol] 8.4 mg/dL Normal 7.6-11.0 [facility] Comment on above: Order Comment: Call MD with results STAT Performed By: #### L 500.2500 ####[facility] [address] [place], [address] Chloride [Moles/Vol] 102 mmol/L Normal 98-108 [facility] Comment on above: Order Comment: Call MD with results STAT Performed By: #### L 500.2500 ####[facility] [address] [place], [address] CO2 [Moles/Vol] 7.2 mmol/L Invalid Interpretation Code 21.0-32.0 [facility] Comment on above: Order Comment: Call MD with results STAT Result Comment: Crit ical Result(s) Called at: by:??Results read back bysaak.Critical Result(s) Called at:0104 by: ROSLYN ARNETTN TO [facility]??Results read back by same. Performed By: #### L 500.2500 ####[facility] [address] [place], [address] Creatinine [Mass/Vol] 1.01 mg/dL Normal 0.70-1.20 [facility] Comment on above: Order Comment: Call MD with results STAT Performed By: #### L 500.2500 ####[facility] [address] [place], [address] ECRCL 82.16 ml/min Normal 50-250 [facility] Comment on above: Order Comment: Call MD with results STAT Performed By: #### L 500.2500 ####[facility] [address] [place], [address] GAP 26 High 5-15 [facility] Comment on above: Order Comment: Call MD with results STAT Performed By: #### L 500.2500 ####[facility] [address] [place], [address] GFR/1.73 sq M.predicted among non-blacks MDRD (S/P/Bld) [Vol rate/Area] 77 mL/min/{1.73_m2} Normal >60 [facility] Comment on above: Order Comment: Call MD with results STAT Result Comment: mL/m in/1.73m2 CKD-EPI Creatinine Equation (2020) Performed By: #### L 500.2500 ####[facility] [address] [place], [address] Glucose [Mass/Vol] 330 mg/dL High 70-99 [facility] Comment on above: Order Comment: Call MD with results STAT Performed By: #### L 500.2500 ####[facility] [address] [place], [address] Potassium [Moles/Vol] 4.4 mmol/L Normal 3.3-5.1 [facility] Comment on above: Order Comment: Call MD with results STAT Result Comment: Hemo lysis present, Results??could be affected.?? Performed By: #### L 500.2500 ####[facility] [address] [place], [address] Sodium [Moles/Vol] 135 mmol/L Normal 133-145 [facility] Comment on above: Order Comment: Call MD with results STAT Performed By: #### L 500.2500 ####[facility] [address] [place], [address] Urea nitrogen [Mass/Vol] 21 mg/dL High 4-19 [facility] Comment on above: Order Comment: Call MD with results STAT Performed By: #### L 500.2500 ####[facility] [address] [place], [address] Bedside Glucoseon 01-23-2025 FINGERSTICK GLU 150 mg/dL High 74-106 [facility] Comment on above: Result Comment: EDGAR GEMENT OF PATIENT CARE PER NURSING PROTOCOL Performed By: #### L 501.080 ####[facility] [address] [place] [place], [address] FINGERSTICK GLU 170 mg/dL High 74-106 [facility] Comment on above: Result Comment: EDGAR GEMENT OF PATIENT CARE PER NURSING PROTOCOL Performed By: #### L 501.080 ####[facility] [address] [place], [address] FINGERSTICK GLU 134 mg/dL High 74-106 [facility] Comment on above: Result Comment: EDGAR GEMENT OF PATIENT CARE PER NURSING PROTOCOL Performed By: #### L 501.080 ####[facility] [address] [place], [address] FINGERSTICK GLU 134 mg/dL High 74-106 [facility] Comment on above: Result Comment: EDGAR GEMENT OF PATIENT CARE PER NURSING PROTOCOL Performed By: #### L 501.080 ####[facility] [address] [place], [address] FINGERSTICK GLU 145 mg/dL High 74-106 [facility] Comment on above: Result Comment: EDGAR GEMENT OF PATIENT CARE PER NURSING PROTOCOL Performed By: #### L 501.080 ####[facility] [address] [place], [address] FINGERSTICK GLU 136 mg/dL High 74-106 [facility] Comment on above: Result Comment: EDGAR GEMENT OF PATIENT CARE PER NURSING PROTOCOL Performed By: #### L 501.080 ####[facility] [address] [place], [address] FINGERSTICK GLU 128 mg/dL High 74-106 [facility] Comment on above: Result Comment: EDGAR GEMENT OF PATIENT CARE PER NURSING PROTOCOL Performed By: #### L 501.080 ####[facility] [address] [place], [address] FINGERSTICK GLU 127 mg/dL High 74-106 [facility] Comment on above: Result Comment: EDGAR GEMENT OF PATIENT CARE PER NURSING PROTOCOL Performed By: #### L 501.080 ####[facility] [address] [place], [address] FINGERSTICK GLU 120 mg/dL High 74-106 [facility] Comment on above: Result Comment: EDGAR GEMENT OF PATIENT CARE PER NURSING PROTOCOL Performed By: #### L 501.080 ####[facility] [address] [place], [address] FINGERSTICK GLU 127 mg/dL High 74-106 [facility] Comment on above: Result Comment: EDGAR GEMENT OF PATIENT CARE PER NURSING PROTOCOL Performed By: #### L 501.080 ####[facility] [address] [place], [address] FINGERSTICK GLU 176 mg/dL High 74-106 [facility] Comment on above: Result Comment: EDGAR GEMENT OF PATIENT CARE PER NURSING PROTOCOL Performed By: #### L 501.080 ####[facility] [address] [place], [address] FINGERSTICK GLU 156 mg/dL High 74-106 [facility] Comment on above: Result Comment: EDGAR GEMENT OF PATIENT CARE PER NURSING PROTOCOL Performed By: #### L 501.080 ####[facility] [address] [place], [address] FINGERSTICK GLU 177 mg/dL High -106 [facility] Comment on above: Result Comment: EDGAR GEMENT OF PATIENT CARE PER NURSING PROTOCOL Performed By: #### L 501.080 ####[facility] [address] [place], [address] FINGERSTICK GLU 200 mg/dL High -[address] [place] [address] Comment on above: Result Comment: EDGAR GEMENT OF PATIENT CARE PER NURSING PROTOCOL Performed By: #### L 501.080 ####[facility] [address] [place], [address] FINGERSTICK GLU 203 mg/dL High -[address] [place] [address] Comment on above: Result Comment: EDGAR GEMENT OF PATIENT CARE PER NURSING PROTOCOL Performed By: #### L 501.080 ####[facility] [address] [place], [address] FINGERSTICK GLU 214 mg/dL High -[address] [place] [address] Comment on above: Result Comment: EDGAR GEMENT OF PATIENT CARE PER NURSING PROTOCOL Performed By: #### L 501.080 ####[facility] [address] [place], [address] FINGERSTICK GLU 217 mg/dL High 74-106 [facility] Comment on above: Result Comment: EDGAR GEMENT OF PATIENT CARE PER NURSING PROTOCOL Performed By: #### L 501.080 ####[facility] [address] [place], [address] FINGERSTICK GLU 230 mg/dL High -106 [facility] Comment on above: Result Comment: EDGAR GEMENT OF PATIENT CARE PER NURSING PROTOCOL Performed By: #### L 501.080 ####[facility] [address] [place], [address] FINGERSTICK GLU 258 mg/dL High 74-106 [facility] Comment on above: Result Comment: EDGAR GEMENT OF PATIENT CARE PER NURSING PROTOCOL Performed By: #### L 501.080 ####[facility] [address] [place], [address] FINGERSTICK GLU 269 mg/dL High 74-106 [facility] Comment on above: Result Comment: EDGAR GEMENT OF PATIENT CARE PER NURSING PROTOCOL Performed By: #### L 501.080 ####[facility] [address] [place], [address] FINGERSTICK GLU 253 mg/dL High [facility]106 [facility] Comment on above: Result Comment: EDGAR GEMENT OF PATIENT CARE PER NURSING PROTOCOL Performed By: #### L 501.080 ####[facility] [address] [place], [address] FINGERSTICK GLU 286 mg/dL High [address] [place] [address] Comment on above: Result Comment: EDGAR GEMENT OF PATIENT CARE PER NURSING PROTOCOL Performed By: #### L 501.080 ####[facility] [address] [place], [address] CBC W/Diff, Automatedon 05-2 SMEAR COMMENT SCANNED Normal [facility] Comment on above: Performed By: #### L 100.0100 ####[facility] [address] [place], [address] Basic Metabolic Profile (BMP )on 01-22-2025 BUN/CRE 21.4 RATIO High 10-20 [facility] Comment on above: Performed By: #### L 700.6800, L500.3400, L501.2450, L500.2500, L100.0100 ####[facility] [address] [place], [address] Calcium [Mass/Vol] 9.4 mg/dL Normal 7.6-11.0 [facility] Comment on above: Performed By: #### L 700.6800, L500.3400, L501.2450, L500.2500, L100.0100 ####[facility] [address] [place], [address] Chloride [Moles/Vol] 92 mmol/L Low 98-108 [facility] Comment on above: Performed By: #### L 700.6800, L500.3400, L501.2450, L500.2500, L100.0100 ####[facility] [address] [place], [address] CO2 [Moles/Vol] 6.3 mmol/L Invalid Interpretation Code 21.0-32.0 [facility] Comment on above: Result Comment: Crit ical Result(s) Called at: by:??[facility] Result(s) Called at: 2055 by: ROSLYN AYERS??Results read back by same. Performed By: #### L 700.6800, L500.3400, L501.2450, L500.2500, L100.0100 ####[facility] [address] [place], [address] Creatinine [Mass/Vol] 1.10 mg/dL Normal 0.70-1.20 [facility] Comment on above: Performed By: #### L 700.6800, L500.3400, L501.2450, L500.2500, L100.0100 ####[facility] [address] [place], [address] GAP 32 High 5-15 [facility] Comment on above: Performed By: #### L 700.6800, L500.3400, L501.2450, L500.2500, L100.0100 ####[facility] [address] [place], [address] GFR/1.73 sq M.predicted among non-blacks MDRD (S/P/Bld) [Vol rate/Area] 69 mL/min/{1.73_m2} Normal >60 [facility] Comment on above: Result Comment: mL/m in/1.73m2 CKD-EPI Creatinine Equation (2020) Performed By: #### L 700.6800, L500.3400, L501.2450, L500.2500, L100.0100 ####[facility] [address] [place], [address] Glucose [Mass/Vol] 507 mg/dL Invalid Interpretation Code 70-99 [facility] Comment on above: Result Comment: Crit ical Result(s) Called at: by:??Results read back bysame.Critical Result(s) Called at: 2055 by: ROSLYN AYERS??Results read back by same.Critical Result(s) Called at: by:??Results read back bysame. Performed By: #### L 700.6800, L500.3400, L501.2450, L500.2500, L100.0100 ####[facility] [address] [place], [address] Potassium [Moles/Vol] 4.7 mmol/L Normal 3.3-5.1 [facility] Comment on above: Performed By: #### L 700.6800, L500.3400, L501.2450, L500.2500, L100.0100 ####[facility] [address] [place], [address] Sodium [Moles/Vol] 130 mmol/L Low 133-145 [facility] Comment on above: Performed By: #### L 700.6800, L500.3400, L501.2450, L500.2500, L100.0100 ####[facility] [address] [place], [address] Urea nitrogen [Mass/Vol] 24 mg/dL High -19 [facility] Comment on above: Performed By: #### L 700.6800, L500.3400, L501.2450, L500.2500, L100.0100 ####[facility] [address] [place], [address] Bedside Glucoseon 01-22-2025 FINGERSTICK GLU 369 mg/dL High 74-106 [facility] Comment on above: Result Comment: EDGAR GEMENT OF PATIENT CARE PER NURSING PROTOCOL Performed By: #### L 501.080 ####[facility] [address] [place], [address] FINGERSTICK GLU > 500 Invalid Interpretation Code [facility]106 [facility] Comment on above: Result Comment: Insu marci GivenMANAGEMENT OF PATIENT CARE PER NURSING PROTOCOL Performed By: #### L 501.080 ####[facility] [address] [place], [address] FINGERSTICK GLU 492 mg/dL Invalid Interpretation Code [address] [place] [address] Comment on above: Result Comment: Dr Ej foreman FollowedMANAGEMENT OF PATIENT CARE PER NURSING PROTOCOL Performed By: #### L 501.080 ####[facility] [address] [place], [address] Beta-Hydroxbytyrateon 2024 BETA-HYDROXYBUT 6.8 mmol/L Normal 0.0-0.3 [facility] Comment on above: Performed By: #### L 501.6901 ####[facility] [address] [place], [address] CBC W/Diff, Automatedon - PLT EST SLT DEC Normal ADEQ [facility] Comment on above: Performed By: #### L 700.6800, L500.3400, L501.2450, L500.2500, L100.0100 ####[facility] [address] [place], [address] SMEAR COMMENT SCANNED Normal [facility] Comment on above: Performed By: #### L 700.6800, L500.3400, L501.2450, L500.2500, L100.0100 ####[facility] [address] [place], [address] Emergency Department Summary on 01-22-2025 Emergency Department Summary Normal [facility] H AND P Exam - Hospitaliston 01-22-2025 H&P Exam - Hospitalist Normal [facility] Lipaseon 01-22-2025 Lipase [Catalytic activity/Vol] 11 U/L Low 13-75 [facility] Comment on above: Result Comment: Sulma schmitz note:LIPASE revised reference range effective 22.New Lipase methodology. Expected to produce lower valuesthan the previous assay method.NEW Reference Range: 13 - 75 U/L Performed By: #### L 700.6800, L500.3400, L501.2450, L500.2500, L100.0100 ####[facility] [address] [place], [address] Liver Profileon 01-22-2025 Albumin [Mass/Vol] 4.6 g/dL Normal 3.5-5.0 [facility] Comment on above: Performed By: #### L 700.6800, L500.3400, L501.2450, L500.2500, L100.0100 ####[facility] [address] [place], [address] ALK PHOS 109 U/L High 35-104 [facility] Comment on above: Performed By: #### L 700.6800, L500.3400, L501.2450, L500.2500, L100.0100 ####[facility] [address] [place], [address] ALT [Catalytic activity/Vol] 11 U/L Normal <=34 [facility] Comment on above: Performed By: #### L 700.6800, L500.3400, L501.2450, L500.2500, L100.0100 ####[facility] [address] [place], [address] AST [Catalytic activity/Vol] 16 U/L Normal <=31 [facility] Comment on above: Performed By: #### L 700.6800, L500.3400, L501.2450, L500.2500, L100.0100 ####[facility] [address] [place], [address] Bilirubin [Mass/Vol] 0.96 mg/dL Normal 0.00-1.30 [facility] Comment on above: Performed By: #### L 700.6800, L500.3400, L501.2450, L500.2500, L100.0100 ####[facility] [address] [place], [address] Bilirubin.direct [Mass/Vol] 0.40 mg/dL High 0.00-0.30 [facility] Comment on above: Performed By: #### L 700.6800, L500.3400, L501.2450, L500.2500, L100.0100 ####[facility] [address] [place], [address] Globulin (S) [Mass/Vol] 3.3 g/dL Normal 2.2-4.2 [facility] Comment on above: Performed By: #### L 700.6800, L500.3400, L501.2450, L500.2500, L100.0100 ####[facility] [address] [place], [address] T PROT 7.9 g/dL Normal 5.9-8.4 [facility] Comment on above: Performed By: #### L 700.6800, L500.3400, L501.2450, L500.2500, L100.0100 ####[facility] [address] [place], [address] ,Serum,hCG Quali.on 01-22-2025 HCG, SERUM QUAL Negative Normal [facility] Comment on above: Performed By: #### L 700.6800, L500.3400, L501.2450, L500.2500, L100.0100 ####[facility] [address] [place], [address] Urinalysis, Completeon 01-22 WBC 0-5 SEEN Normal 0-5 [facility] Comment on above: Order Comment: CRITI CRISTINA VALUE CALLED TO [facility]01/22/252058 Nguyen Lollo.RESULTS READ BACK BY SAME.CLEAN CATCH Performed By: #### L 400.0001 ####[facility] [address] [place], [address] RBC 0-5 SEEN Normal 0-5 [facility] Comment on above: Order Comment: CRITI CRISTINA VALUE CALLED TO [facility]01/22/252058 Nguyen Lollo.RESULTS READ BACK BY SAME.CLEAN CATCH Performed By: #### L 400.0001 ####[facility] [address] [place], [address] BACTERIA 1+ /hpf Normal None Seen [facility] Comment on above: Order Comment: CRITI CRISTINA VALUE CALLED TO [facility]01/22/252058 Nguyen Lollo.RESULTS READ BACK BY SAME.CLEAN CATCH Performed By: #### L 400.0001 ####[facility] [address] [place], [address] EPI,SQUAMOUS 0-5 SEEN Normal 5-10 [facility] Comment on above: Order Comment: CRITI CRISTINA VALUE CALLED TO [facility]01/22/252058 Nguyen Lollo.RESULTS READ BACK BY SAME.CLEAN CATCH Performed By: #### L 400.0001 ####[facility] [address] [place], [address] Mucus Ql (Urine sed) 0 SEEN Normal [facility] Comment on above: Order Comment: CRITI CRISTINA VALUE CALLED TO [facility]01/22/252058 Nguyen Houser.RESULTS READ BACK BY SAME.CLEAN CATCH Performed By: #### L 400.0001 ####[facility] [address] [place], [address] Venous Blood Gason 5 Blood Gas Type ISABELLE Normal [facility] Comment on above: Performed By: #### L 9000.0810 ####[facility] [address] [place], [address] CO2 [Moles/Vol] 8 mmol/L Low 23-33 [facility] Comment on above: Performed By: #### L 9000.0810 ####[facility] [address] [place], [address] HCO3 (Bld) [Moles/Vol] 8 mmol/L Low 22-26 [facility] Comment on above: Performed By: #### L 9000.0810 ####[facility] [address] [place], [address] O2 Delivery Dev Not entered [facility] Comment on above: Performed By: #### L 9000.0810 ####[facility] [address] [place], [address] Read Back By Yes [facility] Comment on above: Performed By: #### L 9000.0810 ####[facility] [address] [place], [address] SITE Not entered [facility] Comment on above: Performed By: #### L 9000.0810 ####[facility] [address] [place], [address] VBG BE -21 mmol/L Low -1.0-3.5 [facility] Comment on above: Performed By: #### L 9000.0810 ####[facility] [address] [place], [address] VBG pCO2 20.8 mmHg Low 41-51 [facility] Comment on above: Performed By: #### L 9000.0810 ####[facility] [address] [place], [address] VBG pH 7.17 Invalid Interpretation Code 7.32-7.42 [facility] Comment on above: Performed By: #### L 9000.0810 ####[facility] [address] [place], [address] VBG PO2 48 mmHg High 25-40 [facility] Comment on above: Performed By: #### L 9000.0810 ####[facility] [address] [place], [address] VBG SO2 74 High 50-70 [facility] Comment on above: Performed By: #### L 9000.0810 ####[facility] [address] [place], [address] Abdomen Single Viewon 2024 Abdomen Single View Normal [facility] Gastroenterology Visit Repor ton 01-08-2025 Gastroenterology Visit Report Normal [facility] CBC W/Diff, Automatedon 04-3 Absolute Lymph 1.70 X10 3/uL Normal 0.83-4.51 [facility] Comment on above: Performed By: #### L 500.4050, L100.0100, L501.2300 ####[facility] [address] [place], [address] Absolute Neut 7.3 X10 3/uL Normal 2.0-7.7 [facility] Comment on above: Performed By: #### L 500.4050, L100.0100, L501.2300 ####[facility] [address] [place], [address] Basophils/100 WBC (Bld) 0.5 % Normal 0-1 [facility] Comment on above: Performed By: #### L 500.4050, L100.0100, L501.2300 ####[facility] [address] [place], [address] Eosinophils/100 WBC (Bld) 0.6 % Normal 0-5 [facility] Comment on above: Performed By: #### L 500.4050, L100.0100, L501.2300 ####[facility] [address] [place], [address] Erythrocyte distribution width (RBC) [Ratio] 13.1 % Normal 11.6-14.6 [facility] Comment on above: Performed By: #### L 500.4050, L100.0100, L501.2300 ####[facility] [address] [place], [address] Hematocrit (Bld) [Volume fraction] 42.8 % Normal 37-47 [facility] Comment on above: Performed By: #### L 500.4050, L100.0100, L501.2300 ####[facility] [address] [place], [address] Hemoglobin (Bld) [Mass/Vol] 14.5 g/dL Normal 12.0-15.0 [facility] Comment on above: Performed By: #### L 500.4050, L100.0100, L501.2300 ####[facility] [address] [place], [address] IG% 0.900 Normal 0.0-0.9 [facility] Comment on above: Result Comment: IG% - Immature Granulocytes (promyelocytes, myelocytes andmetamyelocytes) > 1% indicates that a LEFT SHIFT is Present. Performed By: #### L 500.4050, L100.0100, L501.2300 ####[facility] [address] [place], [address] Lymphocytes/100 WBC (Bld) 17.6 % Low 19-41 [facility] Comment on above: Performed By: #### L 500.4050, L100.0100, L501.2300 ####[facility] [address] [place], [address] MCH (RBC) [Entitic mass] 29.5 pg Normal 27.0-32.0 [facility] Comment on above: Performed By: #### L 500.4050, L100.0100, L501.2300 ####[facility] [address] [place], [address] MCHC (RBC) [Mass/Vol] 33.9 g/dL Normal 32-36 [facility] Comment on above: Performed By: #### L 500.4050, L100.0100, L501.2300 ####[facility] [address] [place], [address] MCV (RBC) [Entitic vol] 87.2 fL Normal 81-99 [facility] Comment on above: Performed By: #### L 500.4050, L100.0100, L501.2300 ####[facility] [address] [place], [address] Monocytes/100 WBC (Bld) 5.3 % Normal 0-10 [facility] Comment on above: Performed By: #### L 500.4050, L100.0100, L501.2300 ####[facility] [address] [place], [address] Neutrophils/100 WBC (Bld) 75.1 % High 47-70 [facility] Comment on above: Performed By: #### L 500.4050, L100.0100, L501.2300 ####[facility] [address] [place], [address] Nucleated RBC (Bld) [#/Vol] 0 10*3/uL Normal 0-5 [facility] Comment on above: Performed By: #### L 500.4050, L100.0100, L501.2300 ####[facility] [address] [place], [address] Platelet mean volume (Bld) [Entitic vol] 12.4 fL High 6.2-12.0 [facility] Comment on above: Performed By: #### L 500.4050, L100.0100, L501.2300 ####[facility] [address] [place], [address] Platelets (Bld) [#/Vol] 149 10*3/uL Low 150-450 [facility] Comment on above: Performed By: #### L 500.4050, L100.0100, L501.2300 ####[facility] [address] [place], [address] RBC (Bld) [#/Vol] 4.91 10*6/uL Normal 4.2-5.4 [facility] Comment on above: Performed By: #### L 500.4050, L100.0100, L501.2300 ####[facility] [address] [place], [address] RDW SD 41.7 fl Normal 35.1-43.9 [facility] Comment on above: Performed By: #### L 500.4050, L100.0100, L501.2300 ####[facility] [address] [place], [address] WBC (Bld) [#/Vol] 9.7 10*3/uL Normal 4.4-11.0 [facility] Comment on above: Performed By: #### L 500.4050, L100.0100, L501.2300 ####[facility] [address] [place], [address] Comprehensive Metabolic Prof ilon 12-25-2024 Albumin [Mass/Vol] 4.3 g/dL Normal 3.5-5.0 [facility] Comment on above: Performed By: #### L 500.4050, L100.0100, L501.2300 ####[facility] [address] [place], [address] Albumin/Globulin [Mass ratio] 1.6 {ratio} Normal 0.9-2.4 [facility] Comment on above: Performed By: #### L 500.4050, L100.0100, L501.2300 ####[facility] [address] [place], [address] ALK PHOS 78 U/L Normal 35-104 [facility] Comment on above: Performed By: #### L 500.4050, L100.0100, L501.2300 ####[facility] [address] [place], [address] ALT [Catalytic activity/Vol] 9 U/L Normal <=34 [facility] Comment on above: Performed By: #### L 500.4050, L100.0100, L501.2300 ####[facility] [address] [place], [address] AST [Catalytic activity/Vol] 14 U/L Normal <=31 [facility] Comment on above: Performed By: #### L 500.4050, L100.0100, L501.2300 ####[facility] [address] [place], [address] Bilirubin [Mass/Vol] 0.56 mg/dL Normal 0.00-1.30 [facility] Comment on above: Performed By: #### L 500.4050, L100.0100, L501.2300 ####[facility] [address] [place], [address] BUN/CRE 14.6 RATIO Normal 10-20 [facility] Comment on above: Performed By: #### L 500.4050, L100.0100, L501.2300 ####[facility] [address] [place], [address] Calcium [Mass/Vol] 9.3 mg/dL Normal 7.6-11.0 [facility] Comment on above: Performed By: #### L 500.4050, L100.0100, L501.2300 ####[facility] [address] [place], [address] Chloride [Moles/Vol] 100 mmol/L Normal 98-108 [facility] Comment on above: Performed By: #### L 500.4050, L100.0100, L501.2300 ####[facility] [address] [place], [address] CO2 [Moles/Vol] 19.3 mmol/L Low 21.0-32.0 [facility] Comment on above: Performed By: #### L 500.4050, L100.0100, L501.2300 ####[facility] [address] [place], [address] Creatinine [Mass/Vol] 0.75 mg/dL Normal 0.70-1.20 [facility] Comment on above: Performed By: #### L 500.4050, L100.0100, L501.2300 ####[facility] [address] [place], [address] GAP 13 Normal 5-15 [facility] Comment on above: Performed By: #### L 500.4050, L100.0100, L501.2300 ####[facility] [address] [place], [address] GFR/1.73 sq M.predicted among non-blacks MDRD (S/P/Bld) [Vol rate/Area] 110 mL/min/{1.73_m2} Normal >60 [facility] Comment on above: Result Comment: mL/m in/1.73m2 CKD-EPI Creatinine Equation (2020) Performed By: #### L 500.4050, L100.0100, L501.2300 ####[facility] [address] [place], [address] Globulin (S) [Mass/Vol] 2.7 g/dL Normal 2.2-4.2 [facility] Comment on above: Performed By: #### L 500.4050, L100.0100, L501.2300 ####[facility] [address] [place], [address] Glucose [Mass/Vol] 443 mg/dL High 70-99 [facility] Comment on above: Performed By: #### L 500.4050, L100.0100, L501.2300 ####[facility] [address] [place], [address] Potassium [Moles/Vol] 4.5 mmol/L Normal 3.3-5.1 [facility] Comment on above: Performed By: #### L 500.4050, L100.0100, L501.2300 ####[facility] [address] [place], [address] Sodium [Moles/Vol] 133 mmol/L Normal 133-145 [facility] Comment on above: Performed By: #### L 500.4050, L100.0100, L501.2300 ####[facility] [address] [place], [address] T PROT 7.0 g/dL Normal 5.9-8.4 [facility] Comment on above: Performed By: #### L 500.4050, L100.0100, L501.2300 ####[facility] [address] [place], [address] Urea nitrogen [Mass/Vol] 11 mg/dL Normal 4-19 [facility] Comment on above: Performed By: #### L 500.4050, L100.0100, L501.2300 ####[facility] [address] [place], [address] Phosphoruson 12-25-2024 Phosphate [Mass/Vol] 2.9 mg/dL Normal 2.7-4.5 [facility] Comment on above: Performed By: #### L 500.4050, L100.0100, L501.2300 ####[facility] [address] [place], [address] Basic Metabolic Profile (BMP )on 12-16-2024 BUN/CRE 10.1 RATIO Normal 10-20 [facility] Comment on above: Performed By: #### L 500.2500, L100.0100 ####[facility] [address] [place], [address] Calcium [Mass/Vol] 8.4 mg/dL Normal 7.6-11.0 [facility] Comment on above: Performed By: #### L 500.2500, L100.0100 ####[facility] [address] [place], [address] Chloride [Moles/Vol] 107 mmol/L Normal 98-108 [facility] Comment on above: Performed By: #### L 500.2500, L100.0100 ####[facility] [address] [place], [address] CO2 [Moles/Vol] 19.2 mmol/L Low 21.0-32.0 [facility] Comment on above: Performed By: #### L 500.2500, L100.0100 ####[facility] [address] [place], [address] Creatinine [Mass/Vol] 0.68 mg/dL Low 0.70-1.20 [facility] Comment on above: Performed By: #### L 500.2500, L100.0100 ####[facility] [address] [place], [address] ECRCL 126.42 ml/min Normal 50-250 [facility] Comment on above: Performed By: #### L 500.2500, L100.0100 ####[facility] [address] [place], [address] GAP 11 Normal 5-15 [facility] Comment on above: Performed By: #### L 500.2500, L100.0100 ####[facility] [address] [place], [address] GFR/1.73 sq M.predicted among non-blacks MDRD (S/P/Bld) [Vol rate/Area] 120 mL/min/{1.73_m2} Normal >60 [facility] Comment on above: Result Comment: mL/m in/1.73m2 CKD-EPI Creatinine Equation (2020) Performed By: #### L 500.2500, L100.0100 ####[facility] [address] [place], [address] Glucose [Mass/Vol] 203 mg/dL High 70-99 [facility] Comment on above: Performed By: #### L 500.2500, L100.0100 ####[facility] [address] [place], [address] Potassium [Moles/Vol] 4.4 mmol/L Normal 3.3-5.1 [facility] Comment on above: Result Comment: Hemo lysis present, Results??could be affected.?? Performed By: #### L 500.2500, L100.0100 ####[facility] [address] [place], [address] Sodium [Moles/Vol] 137 mmol/L Normal 133-145 [facility] Comment on above: Performed By: #### L 500.2500, L100.0100 ####[facility] [address] [place], [address] Urea nitrogen [Mass/Vol] 7 mg/dL Normal 4-19 [facility] Comment on above: Performed By: #### L 500.2500, L100.0100 ####[facility] [address] [place], [address] Bedside Glucoseon 12-16-2024 FINGERSTICK GLU 214 mg/dL High 74-106 [facility] Comment on above: Result Comment: EDGAR GEMENT OF PATIENT CARE PER NURSING PROTOCOL Performed By: #### L 501.080 ####[facility] [address] [place], [address] FINGERSTICK GLU 227 mg/dL High 74-106 [facility] Comment on above: Result Comment: EDGAR GEMENT OF PATIENT CARE PER NURSING PROTOCOL Performed By: #### L 501.080 ####[facility] [address] [place], [address] FINGERSTICK GLU 180 mg/dL High 74-106 [facility] Comment on above: Result Comment: EDGAR GEMENT OF PATIENT CARE PER NURSING PROTOCOL Performed By: #### L 501.080 ####[facility] [address] [place], [address] CBC W/Diff, Automatedon - Absolute Lymph 2.03 X10 3/uL Normal 0.83-4.51 [facility] Comment on above: Performed By: #### L 500.2500, L100.0100 ####[facility] [address] [place], [address] Absolute Neut 14.1 X10 3/uL High 2.0-7.7 [facility] Comment on above: Performed By: #### L 500.2500, L100.0100 ####[facility] [address] [place], [address] Basophils/100 WBC (Bld) 0.3 % Normal 0-1 [facility] Comment on above: Performed By: #### L 500.2500, L100.0100 ####[facility] [address] [place], [address] Eosinophils/100 WBC (Bld) 0.1 % Normal 0-5 [facility] Comment on above: Performed By: #### L 500.2500, L100.0100 ####[facility] [address] [place], [address] Erythrocyte distribution width (RBC) [Ratio] 13.3 % Normal 11.6-14.6 [facility] Comment on above: Performed By: #### L 500.2500, L100.0100 ####[facility] [address] [place], [address] Hematocrit (Bld) [Volume fraction] 36.8 % Low 37-47 [facility] Comment on above: Performed By: #### L 500.2500, L100.0100 ####[facility] [address] [place], [address] Hemoglobin (Bld) [Mass/Vol] 12.4 g/dL Normal 12.0-15.0 [facility] Comment on above: Performed By: #### L 500.2500, L100.0100 ####[facility] [address] [place], [address] IG% 0.800 Normal 0.0-0.9 [facility] Comment on above: Result Comment: IG% - Immature Granulocytes (promyelocytes, myelocytes andmetamyelocytes) > 1% indicates that a LEFT SHIFT is Present. Performed By: #### L 500.2500, L100.0100 ####[facility] [address] [place], [address] Lymphocytes/100 WBC (Bld) 11.8 % Low 19-41 [facility] Comment on above: Performed By: #### L 500.2500, L100.0100 ####[facility] [address] [place], [address] MCH (RBC) [Entitic mass] 29.5 pg Normal 27.0-32.0 [facility] Comment on above: Performed By: #### L 500.2500, L100.0100 ####[facility] [address] [place], [address] MCHC (RBC) [Mass/Vol] 33.7 g/dL Normal 32-36 [facility] Comment on above: Performed By: #### L 500.2500, L100.0100 ####[facility] [address] [place], [address] MCV (RBC) [Entitic vol] 87.4 fL Normal 81-99 [facility] Comment on above: Performed By: #### L 500.2500, L100.0100 ####[facility] [address] [place], [address] Monocytes/100 WBC (Bld) 5.0 % Normal 0-10 [facility] Comment on above: Performed By: #### L 500.2500, L100.0100 ####[facility] [address] [place], [address] Neutrophils/100 WBC (Bld) 82.0 % High 47-70 [facility] Comment on above: Performed By: #### L 500.2500, L100.0100 ####[facility] [address] [place], [address] Nucleated RBC (Bld) [#/Vol] 0 10*3/uL Normal 0-5 [facility] Comment on above: Performed By: #### L 500.2500, L100.0100 ####[facility] [address] [place], [address] Platelet mean volume (Bld) [Entitic vol] 12.4 fL High 6.2-12.0 [facility] Comment on above: Performed By: #### L 500.2500, L100.0100 ####[facility] [address] [place], [address] Platelets (Bld) [#/Vol] 165 10*3/uL Normal 150-450 [facility] Comment on above: Performed By: #### L 500.2500, L100.0100 ####[facility] [address] [place], [address] RBC (Bld) [#/Vol] 4.21 10*6/uL Normal 4.2-5.4 [facility] Comment on above: Performed By: #### L 500.2500, L100.0100 ####[facility] [address] [place], [address] RDW SD 42.4 fl Normal 35.1-43.9 [facility] Comment on above: Performed By: #### L 500.2500, L100.0100 ####[facility] [address] [place], [address] WBC (Bld) [#/Vol] 17.1 10*3/uL High 4.4-11.0 [facility] Comment on above: Performed By: #### L 500.2500, L100.0100 ####[facility] [address] [place], [address] Discharge Instructionon 11-27 Discharge Instruction Normal [facility] Basic Metabolic Profile (BMP )on 12-15-2024 BUN/CRE 19.3 RATIO Normal 10-20 [facility] Comment on above: Performed By: #### L 100.0500, L500.2500 ####[facility] [address] [place], [address] Calcium [Mass/Vol] 7.9 mg/dL Normal 7.6-11.0 [facility] Comment on above: Performed By: #### L 100.0500, L500.2500 ####[facility] [address] [place], [address] Chloride [Moles/Vol] 106 mmol/L Normal 98-108 [facility] Comment on above: Performed By: #### L 100.0500, L500.2500 ####[facility] [address] [place], [address] CO2 [Moles/Vol] 14.3 mmol/L Low 21.0-32.0 [facility] Comment on above: Performed By: #### L 100.0500, L500.2500 ####[facility] [address] [place], [address] Creatinine [Mass/Vol] 0.56 mg/dL Low 0.70-1.20 [facility] Comment on above: Performed By: #### L 100.0500, L500.2500 ####[facility] [address] [place], [address] ECRCL 153.51 ml/min Normal 50-250 [facility] Comment on above: Performed By: #### L 100.0500, L500.2500 ####[facility] [address] [place], [address] GAP 17 High 5-15 [facility] Comment on above: Performed By: #### L 100.0500, L500.2500 ####[facility] [address] [place], [address] GFR/1.73 sq M.predicted among non-blacks MDRD (S/P/Bld) [Vol rate/Area] 126 mL/min/{1.73_m2} Normal >60 [facility] Comment on above: Result Comment: mL/m in/1.73m2 CKD-EPI Creatinine Equation (2020) Performed By: #### L 100.0500, L500.2500 ####[facility] [address] [place], [address] Glucose [Mass/Vol] 40 mg/dL Invalid Interpretation Code 70-99 [facility] Comment on above: Result Comment: Crit ical Result(s) Called at: 0709 by:??ROSLYN MACK Results read back by same. Performed By: #### L 100.0500, L500.2500 ####[facility] [address] [place], [address] Potassium [Moles/Vol] 3.1 mmol/L Low 3.3-5.1 [facility] Comment on above: Performed By: #### L 100.0500, L500.2500 ####[facility] [address] [place], [address] Sodium [Moles/Vol] 138 mmol/L Normal 133-145 [facility] Comment on above: Performed By: #### L 100.0500, L500.2500 ####[facility] [address] [place], [address] Urea nitrogen [Mass/Vol] 11 mg/dL Normal 4-19 [facility] Comment on above: Performed By: #### L 100.0500, L500.2500 ####[facility] [address] [place], [address] Bedside Glucoseon 12-15-2024 FINGERSTICK GLU 260 mg/dL High 74-106 [facility] Comment on above: Result Comment: EDGAR HUNG OF PATIENT CARE PER NURSING PROTOCOL Performed By: #### L 501.080 ####[facility] [address] [place], [address] FINGERSTICK GLU 307 mg/dL High 74-106 [facility] Comment on above: Result Comment: EDGAR GEMENT OF PATIENT CARE PER NURSING PROTOCOL Performed By: #### L 501.080 ####[facility] [address] [place], [address] FINGERSTICK GLU 204 mg/dL High 74-106 [facility] Comment on above: Result Comment: EDGAR GEMENT OF PATIENT CARE PER NURSING PROTOCOL Performed By: #### L 501.080 ####[facility] [address] [place], [address] FINGERSTICK GLU 77 mg/dL Normal 74-106 [facility] Comment on above: Result Comment: EDGAR GEMENT OF PATIENT CARE PER NURSING PROTOCOL Performed By: #### L 501.080 ####[facility] [address] [place], [address] FINGERSTICK GLU 34 mg/dL Invalid Interpretation Code 74-106 [facility] Comment on above: Result Comment: EDGAR GEMENT OF PATIENT CARE PER NURSING PROTOCOL Performed By: #### L 501.080 ####[facility] [address] [place], [address] FINGERSTICK GLU 109 mg/dL High 74-106 [facility] Comment on above: Result Comment: EDGAR GEMENT OF PATIENT CARE PER NURSING PROTOCOL Performed By: #### L 501.080 ####[facility] [address] [place], [address] CBC-Complete Blood Cnt No Di ffon 12-15-2024 Erythrocyte distribution width (RBC) [Ratio] 13.1 % Normal 11.6-14.6 [facility] Comment on above: Performed By: #### L 100.0500, L500.2500 ####[facility] [address] [place], [address] Hematocrit (Bld) [Volume fraction] 36.0 % Low 37-47 [facility] Comment on above: Performed By: #### L 100.0500, L500.2500 ####[facility] [address] [place], [address] Hemoglobin (Bld) [Mass/Vol] 12.2 g/dL Normal 12.0-15.0 [facility] Comment on above: Performed By: #### L 100.0500, L500.2500 ####[facility] [address] [place], [address] MCH (RBC) [Entitic mass] 30.1 pg Normal 27.0-32.0 [facility] Comment on above: Performed By: #### L 100.0500, L500.2500 ####[facility] [address] [place], [address] MCHC (RBC) [Mass/Vol] 33.9 g/dL Normal 32-36 [facility] Comment on above: Performed By: #### L 100.0500, L500.2500 ####[facility] [address] [place], [address] MCV (RBC) [Entitic vol] 88.9 fL Normal 81-99 [facility] Comment on above: Performed By: #### L 100.0500, L500.2500 ####[facility] [address] [place], [address] Platelet mean volume (Bld) [Entitic vol] 12.9 fL High 6.2-12.0 [facility] Comment on above: Performed By: #### L 100.0500, L500.2500 ####[facility] [address] [place], [address] Platelets (Bld) [#/Vol] 145 10*3/uL Low 150-450 [facility] Comment on above: Performed By: #### L 100.0500, L500.2500 ####[facility] [address] [place], [address] RBC (Bld) [#/Vol] 4.05 10*6/uL Low 4.2-5.4 [facility] Comment on above: Performed By: #### L 100.0500, L500.2500 ####[facility] [address] [place], [address] RDW SD 42.8 fl Normal 35.1-43.9 [facility] Comment on above: Performed By: #### L 100.0500, L500.2500 ####[facility] [address] [place], [address] WBC (Bld) [#/Vol] 16.4 10*3/uL High 4.4-11.0 [facility] Comment on above: Performed By: #### L 100.0500, L500.2500 ####[facility] [address] [place], [address] Basic Metabolic Profile (BMP )on 12-14-2024 BUN/CRE 17.1 RATIO Normal 10-20 [facility] Comment on above: Performed By: #### L 500.2500 ####[facility] [address] [place], [address] Calcium [Mass/Vol] 7.7 mg/dL Normal 7.6-11.0 [facility] Comment on above: Performed By: #### L 500.2500 ####[facility] [address] [place], [address] Chloride [Moles/Vol] 108 mmol/L Normal 98-108 [facility] Comment on above: Performed By: #### L 500.2500 ####[facility] [address] [place], [address] CO2 [Moles/Vol] 15.3 mmol/L Low 21.0-32.0 [facility] Comment on above: Performed By: #### L 500.2500 ####[facility] [address] [place], [address] Creatinine [Mass/Vol] 0.67 mg/dL Low 0.70-1.20 [facility] Comment on above: Performed By: #### L 500.2500 ####[facility] [address] [place], [address] ECRCL 138.78 ml/min Normal 50-250 [facility] Comment on above: Performed By: #### L 500.2500 ####[facility] [address] [place], [address] GAP 15 Normal 5-15 [facility] Comment on above: Performed By: #### L 500.2500 ####[facility] [address] [place], [address] GFR/1.73 sq M.predicted among non-blacks MDRD (S/P/Bld) [Vol rate/Area] 121 mL/min/{1.73_m2} Normal >60 [facility] Comment on above: Result Comment: mL/m in/1.73m2 CKD-EPI Creatinine Equation (2020) Performed By: #### L 500.2500 ####[facility] [address] [place], [address] Glucose [Mass/Vol] 180 mg/dL High 70-99 [facility] Comment on above: Performed By: #### L 500.2500 ####[facility] [address] [place], [address] Potassium [Moles/Vol] 3.3 mmol/L Normal 3.3-5.1 [facility] Comment on above: Performed By: #### L 500.2500 ####[facility] [address] [place], [address] Sodium [Moles/Vol] 138 mmol/L Normal 133-145 [facility] Comment on above: Performed By: #### L 500.2500 ####[facility] [address] [place], [address] Urea nitrogen [Mass/Vol] 11 mg/dL Normal 4-19 [facility] Comment on above: Performed By: #### L 500.2500 ####[facility] [address] [place], [address] Bedside Glucoseon 12-14-2024 FINGERSTICK GLU 186 mg/dL High 74-106 [facility] Comment on above: Result Comment: EDGAR GEMENT OF PATIENT CARE PER NURSING PROTOCOL Performed By: #### L 501.080 ####[facility] [address] [place], [address] FINGERSTICK GLU 291 mg/dL High 74-106 [facility] Comment on above: Result Comment: EDGAR GEMENT OF PATIENT CARE PER NURSING PROTOCOL Performed By: #### L 501.080 ####[facility] [address] [place], [address] FINGERSTICK GLU 352 mg/dL High 74-106 [facility] Comment on above: Result Comment: EDGAR GEMENT OF PATIENT CARE PER NURSING PROTOCOL Performed By: #### L 501.080 ####[facility] [address] [place], [address] Beta-Hydroxbytyrateon 2024 BETA-HYDROXYBUT 1.9 mmol/L Normal 0.0-0.3 [facility] Comment on above: Performed By: #### L 501.6901, L500.4050, L501.2450, L700.6800 ####[facility] [address] [place], [address] CBC W/Diff, Automatedon 11-26 Absolute Lymph 2.40 X10 3/uL Normal 0.83-4.51 [facility] Comment on above: Performed By: #### L 100.0100 ####[facility] [address] [place], [address] Absolute Neut 12.5 X10 3/uL High 2.0-7.7 [facility] Comment on above: Performed By: #### L 100.0100 ####[facility] [address] [place], [address] Basophils/100 WBC (Bld) 0.4 % Normal 0-1 [facility] Comment on above: Performed By: #### L 100.0100 ####[facility] [address] [place], [address] Eosinophils/100 WBC (Bld) 0.1 % Normal 0-5 [facility] Comment on above: Performed By: #### L 100.0100 ####[facility] [address] [place], [address] Erythrocyte distribution width (RBC) [Ratio] 12.9 % Normal 11.6-14.6 [facility] Comment on above: Performed By: #### L 100.0100 ####[facility] [address] [place], [address] Hematocrit (Bld) [Volume fraction] 39.9 % Normal 37-47 [facility] Comment on above: Performed By: #### L 100.0100 ####[facility] [address] [place], [address] Hemoglobin (Bld) [Mass/Vol] 13.7 g/dL Normal 12.0-15.0 [facility] Comment on above: Performed By: #### L 100.0100 ####[facility] [address] [place], [address] IG% 0.800 Normal 0.0-0.9 [facility] Comment on above: Result Comment: IG% - Immature Granulocytes (promyelocytes, myelocytes andmetamyelocytes) > 1% indicates that a LEFT SHIFT is Present. Performed By: #### L 100.0100 ####[facility] [address] [place], [address] Lymphocytes/100 WBC (Bld) 15.1 % Low 19-41 [facility] Comment on above: Performed By: #### L 100.0100 ####[facility] [address] [place], [address] MCH (RBC) [Entitic mass] 29.7 pg Normal 27.0-32.0 [facility] Comment on above: Performed By: #### L 100.0100 ####[facility] [address] [place], [address] MCHC (RBC) [Mass/Vol] 34.3 g/dL Normal 32-36 [facility] Comment on above: Performed By: #### L 100.0100 ####[facility] [address] [place], [address] MCV (RBC) [Entitic vol] 86.4 fL Normal 81-99 [facility] Comment on above: Performed By: #### L 100.0100 ####[facility] [address] [place], [address] Monocytes/100 WBC (Bld) 4.9 % Normal 0-10 [facility] Comment on above: Performed By: #### L 100.0100 ####[facility] [address] [place], [address] Neutrophils/100 WBC (Bld) 78.7 % High 47-70 [facility] Comment on above: Performed By: #### L 100.0100 ####[facility] [address] [place], [address] Nucleated RBC (Bld) [#/Vol] 0 10*3/uL Normal 0-5 [facility] Comment on above: Performed By: #### L 100.0100 ####[facility] [address] [place], [address] Platelet mean volume (Bld) [Entitic vol] 12.6 fL High 6.2-12.0 [facility] Comment on above: Performed By: #### L 100.0100 ####[facility] [address] [place], [address] Platelets (Bld) [#/Vol] 159 10*3/uL Normal 150-450 [facility] Comment on above: Performed By: #### L 100.0100 ####[facility] [address] [place], [address] RBC (Bld) [#/Vol] 4.62 10*6/uL Normal 4.2-5.4 [facility] Comment on above: Performed By: #### L 100.0100 ####[facility] [address] [place], [address] RDW SD 40.1 fl Normal 35.1-43.9 [facility] Comment on above: Performed By: #### L 100.0100 ####[facility] [address] [place], [address] WBC (Bld) [#/Vol] 15.9 10*3/uL High 4.4-11.0 [facility] Comment on above: Performed By: #### L 100.0100 ####[facility] [address] [place], [address] Comprehensive Metabolic Prof [facility] 12-14-2024 Albumin [Mass/Vol] 4.2 g/dL Normal 3.5-5.0 [facility] Comment on above: Performed By: #### L 501.6901, L500.4050, L501.2450, L700.6800 ####[facility] [address] [place], [address] Albumin/Globulin [Mass ratio] 1.8 {ratio} Normal 0.9-2.4 [facility] Comment on above: Performed By: #### L 501.6901, L500.4050, L501.2450, L700.6800 ####[facility] [address] [place], [address] ALK PHOS 76 U/L Normal 35-104 [facility] Comment on above: Performed By: #### L 501.6901, L500.4050, L501.2450, L700.6800 ####[facility] [address] [place], [address] ALT [Catalytic activity/Vol] 11 U/L Normal <=34 [facility] Comment on above: Performed By: #### L 501.6901, L500.4050, L501.2450, L700.6800 ####[facility] [address] [place], [address] AST [Catalytic activity/Vol] 16 U/L Normal <=31 [facility] Comment on above: Performed By: #### L 501.6901, L500.4050, L501.2450, L700.6800 ####[facility] [address] [place], [address] Bilirubin [Mass/Vol] 0.92 mg/dL Normal 0.00-1.30 [facility] Comment on above: Performed By: #### L 501.6901, L500.4050, L501.2450, L700.6800 ####[facility] [address] [place], [address] BUN/CRE 18.2 RATIO Normal 10-20 [facility] Comment on above: Performed By: #### L 501.6901, L500.4050, L501.2450, L700.6800 ####[facility] [address] [place], [address] Calcium [Mass/Vol] 8.2 mg/dL Normal 7.6-11.0 [facility] Comment on above: Performed By: #### L 501.6901, L500.4050, L501.2450, L700.6800 ####[facility] [address] [place], [address] Chloride [Moles/Vol] 104 mmol/L Normal 98-108 [facility] Comment on above: Performed By: #### L 501.6901, L500.4050, L501.2450, L700.6800 ####[facility] [address] [place], [address] CO2 [Moles/Vol] 15.1 mmol/L Low 21.0-32.0 [facility] Comment on above: Performed By: #### L 501.6901, L500.4050, L501.2450, L700.6800 ####[facility] [address] [place], [address] Creatinine [Mass/Vol] 0.74 mg/dL Normal 0.70-1.20 [facility] Comment on above: Performed By: #### L 501.6901, L500.4050, L501.2450, L700.6800 ####[facility] [address] [place], [address] ECRCL 125.65 ml/min Normal 50-250 [facility] Comment on above: Performed By: #### L 501.6901, L500.4050, L501.2450, L700.6800 ####[facility] [address] [place], [address] GAP 17 High 5-15 [facility] Comment on above: Performed By: #### L 501.6901, L500.4050, L501.2450, L700.6800 ####[facility] [address] [place], [address] GFR/1.73 sq M.predicted among non-blacks MDRD (S/P/Bld) [Vol rate/Area] 112 mL/min/{1.73_m2} Normal >60 [facility] Comment on above: Result Comment: mL/m in/1.73m2 CKD-EPI Creatinine Equation (2020) Performed By: #### L 501.6901, L500.4050, L501.2450, L700.6800 ####[facility] [address] [place], [address] Globulin (S) [Mass/Vol] 2.4 g/dL Normal 2.2-4.2 [facility] Comment on above: Performed By: #### L 501.6901, L500.4050, L501.2450, L700.6800 ####[facility] [address] [place], [address] Glucose [Mass/Vol] 329 mg/dL High 70-99 [facility] Comment on above: Performed By: #### L 501.6901, L500.4050, L501.2450, L700.6800 ####[facility] [address] [place], [address] Potassium [Moles/Vol] 3.6 mmol/L Normal 3.3-5.1 [facility] Comment on above: Performed By: #### L 501.6901, L500.4050, L501.2450, L700.6800 ####[facility] [address] [place], [address] Sodium [Moles/Vol] 136 mmol/L Normal 133-145 [facility] Comment on above: Performed By: #### L 501.6901, L500.4050, L501.2450, L700.6800 ####[facility] [address] [place], [address] T PROT 6.5 g/dL Normal 5.9-8.4 [facility] Comment on above: Performed By: #### L 501.6901, L500.4050, L501.2450, L700.6800 ####[facility] [address] [place], [address] Urea nitrogen [Mass/Vol] 13 mg/dL Normal 4-19 [facility] Comment on above: Performed By: #### L 501.6901, L500.4050, L501.2450, L700.6800 ####[facility] [address] [place], [address] Emergency Department Summary on 12-14-2024 Emergency Department Summary Normal [facility] H AND P Exam - Hospitaliston 12-14-2024 H&P Exam - Hospitalist Normal [facility] Lipaseon 12-14-2024 Lipase [Catalytic activity/Vol] 13 U/L Normal 13-75 [facility] Comment on above: Result Comment: Sulma schmitz note:LIPASE revised reference range effective 22.New Lipase methodology. Expected to produce lower valuesthan the previous assay method.NEW Reference Range: 13 - 75 U/L Performed By: #### L 501.6901, L500.4050, L501.2450, L700.6800 ####[facility] [address] [place], [address] Magnesiumon 12-14-2024 Magnesium [Mass/Vol] 1.5 mg/dL Normal 1.5-2.2 [facility] Comment on above: Performed By: #### L 501.2300, L501.5200 ####[facility] [address] [place], [address] Phosphoruson 12-14-2024 Phosphate [Mass/Vol] 1.4 mg/dL Invalid Interpretation Code 2.7-4.5 [facility] Comment on above: Performed By: #### L 501.2300, L501.5200 ####[facility] [address] [place], [address] ,Serum,hCG Quali.on 12-14-2024 HCG, SERUM QUAL Negative Normal [facility] Comment on above: Performed By: #### L 501.6901, L500.4050, L501.2450, L700.6800 ####[facility] [address] [place], [address] Urinalysis, Completeon 12-14 EPI,SQUAMOUS 0-5 SEEN Normal 5-10 [facility] Comment on above: Order Comment: CLEAN CATCH Performed By: #### L 400.0001 ####[facility] [address] [place], [address] BACTERIA 0 SEEN Normal None Seen [facility] Comment on above: Order Comment: CLEAN CATCH Performed By: #### L 400.0001 ####[facility] [address] [place], [address] Mucus Ql (Urine sed) 0 SEEN Normal [facility] Comment on above: Order Comment: CLEAN CATCH Performed By: #### L 400.0001 ####[facility] [address] [place], [address] RBC 0 SEEN Normal 0-5 [facility] Comment on above: Order Comment: CLEAN CATCH Performed By: #### L 400.0001 ####[facility] [address] [place], [address] WBC 0 SEEN Normal 0-5 [facility] Comment on above: Order Comment: CLEAN CATCH Performed By: #### L 400.0001 ####[facility] [address] [place], [address] Venous Blood Gason 5 Blood Gas Type ISABELLE Normal [facility] Comment on above: Performed By: #### L 9000.0810 ####[facility] [address] [place], [address] CO2 [Moles/Vol] 16 mmol/L Low 23-33 [facility] Comment on above: Performed By: #### L 9000.0810 ####[facility] [address] [place], [address] HCO3 (Bld) [Moles/Vol] 15 mmol/L Low 22-26 [facility] Comment on above: Performed By: #### L 9000.0810 ####[facility] [address] [place], [address] O2 Delivery Dev Room Air Normal [facility] Comment on above: Performed By: #### L 9000.0810 ####[facility] [address] [place], [address] SITE Not entered Normal [facility] Comment on above: Performed By: #### L 9000.0810 ####[facility] [address] [place], [address] VBG BE -9 mmol/L Low -1.0-3.5 [facility] Comment on above: Performed By: #### L 9000.0810 ####[facility] [address] [place], [address] VBG pCO2 21.7 mmHg Low 41-51 [facility] Comment on above: Performed By: #### L 9000.0810 ####[facility] [address] [place], [address] VBG pH 7.45 High 7.32-7.42 [facility] Comment on above: Performed By: #### L 9000.0810 ####[facility] [address] [place], [address] VBG PO2 43 mmHg High 25-40 [facility] Comment on above: Performed By: #### L 9000.0810 ####[facility] [address] [place], [address] VBG SO2 83 High 50-70 [facility] Comment on above: Performed By: #### L 9000.0810 ####[facility] [address] [place], [address] CBC W/Diff, Automatedon 04-0 PLT EST ADEQUATE Normal ADEQ [facility] Comment on above: Performed By: #### L 501.9520, L100.0100, L501.9985, L506.1001, L500.4050, L509.6001, L503.6030 ####[facility] [address] [place], [address] Comprehensive Metabolic Prof ilon 11-28-2024 Albumin [Mass/Vol] 4.1 g/dL Normal 3.5-5.0 [facility] Comment on above: Performed By: #### L 501.9520, L100.0100, L501.9985, L506.1001, L500.4050, L509.6001, L503.6030 ####[facility] [address] [place], [address] Albumin/Globulin [Mass ratio] 1.8 {ratio} Normal 0.9-2.4 [facility] Comment on above: Performed By: #### L 501.9520, L100.0100, L501.9985, L506.1001, L500.4050, L509.6001, L503.6030 ####[facility] [address] [place], [address] ALK PHOS 68 U/L Normal 35-104 [facility] Comment on above: Performed By: #### L 501.9520, L100.0100, L501.9985, L506.1001, L500.4050, L509.6001, L503.6030 ####[facility] [address] [place], [address] ALT [Catalytic activity/Vol] 6 U/L Normal <=34 [facility] Comment on above: Performed By: #### L 501.9520, L100.0100, L501.9985, L506.1001, L500.4050, L509.6001, L503.6030 ####[facility] [address] [place], [address] AST [Catalytic activity/Vol] 16 U/L Normal <=31 [facility] Comment on above: Performed By: #### L 501.9520, L100.0100, L501.9985, L506.1001, L500.4050, L509.6001, L503.6030 ####[facility] [address] [place], [address] Bilirubin [Mass/Vol] 0.29 mg/dL Normal 0.00-1.30 [facility] Comment on above: Performed By: #### L 501.9520, L100.0100, L501.9985, L506.1001, L500.4050, L509.6001, L503.6030 ####[facility] [address] [place], [address] BUN/CRE 19.9 RATIO Normal 10-20 [facility] Comment on above: Performed By: #### L 501.9520, L100.0100, L501.9985, L506.1001, L500.4050, L509.6001, L503.6030 ####[facility] [address] [place], [address] Calcium [Mass/Vol] 9.1 mg/dL Normal 7.6-11.0 [facility] Comment on above: Performed By: #### L 501.9520, L100.0100, L501.9985, L506.1001, L500.4050, L509.6001, L503.6030 ####[facility] [address] [place], [address] Chloride [Moles/Vol] 107 mmol/L Normal 98-108 [facility] Comment on above: Performed By: #### L 501.9520, L100.0100, L501.9985, L506.1001, L500.4050, L509.6001, L503.6030 ####[facility] [address] [place], [address] CO2 [Moles/Vol] 20.4 mmol/L Low 21.0-32.0 [facility] Comment on above: Performed By: #### L 501.9520, L100.0100, L501.9985, L506.1001, L500.4050, L509.6001, L503.6030 ####[facility] [address] [place], [address] Creatinine [Mass/Vol] 0.59 mg/dL Low 0.70-1.20 [facility] Comment on above: Performed By: #### L 501.9520, L100.0100, L501.9985, L506.1001, L500.4050, L509.6001, L503.6030 ####[facility] [address] [place], [address] GAP 11 Normal 5-15 [facility] Comment on above: Performed By: #### L 501.9520, L100.0100, L501.9985, L506.1001, L500.4050, L509.6001, L503.6030 ####[facility] [address] [place], [address] GFR/1.73 sq M.predicted among non-blacks MDRD (S/P/Bld) [Vol rate/Area] 124 mL/min/{1.73_m2} Normal >60 [facility] Comment on above: Result Comment: mL/m in/1.73m2 CKD-EPI Creatinine Equation (2020) Performed By: #### L 501.9520, L100.0100, L501.9985, L506.1001, L500.4050, L509.6001, L503.6030 ####[facility] [address] [place], [address] Globulin (S) [Mass/Vol] 2.3 g/dL Normal 2.2-4.2 [facility] Comment on above: Performed By: #### L 501.9520, L100.0100, L501.9985, L506.1001, L500.4050, L509.6001, L503.6030 ####[facility] [address] [place], [address] Glucose [Mass/Vol] 222 mg/dL High 70-99 [facility] Comment on above: Performed By: #### L 501.9520, L100.0100, L501.9985, L506.1001, L500.4050, L509.6001, L503.6030 ####[facility] [address] [place], [address] Potassium [Moles/Vol] 4.2 mmol/L Normal 3.3-5.1 [facility] Comment on above: Performed By: #### L 501.9520, L100.0100, L501.9985, L506.1001, L500.4050, L509.6001, L503.6030 ####[facility] [address] [place], [address] Sodium [Moles/Vol] 138 mmol/L Normal 133-145 [facility] Comment on above: Performed By: #### L 501.9520, L100.0100, L501.9985, L506.1001, L500.4050, L509.6001, L503.6030 ####[facility] [address] [place], [address] T PROT 6.4 g/dL Normal 5.9-8.4 [facility] Comment on above: Performed By: #### L 501.9520, L100.0100, L501.9985, L506.1001, L500.4050, L509.6001, L503.6030 ####[facility] [address] [place], [address] Urea nitrogen [Mass/Vol] 12 mg/dL Normal 4-19 [facility] Comment on above: Performed By: #### L 501.9520, L100.0100, L501.9985, L506.1001, L500.4050, L509.6001, L503.6030 ####[facility] [address] [place], [address] Hemoglobin A1con 11-28-2024 HbA1c (Bld) [Mass fraction] 10.1 % Normal <=5.6 [facility] Comment on above: Performed By: #### L 501.9520, L100.0100, L501.9985, L506.1001, L500.4050, L509.6001, L503.6030 ####[facility] [address] [place], [address] Iron+Iron Binding Capacityon 11-28-2024 Iron [Mass/Vol] 71 ug/dL Normal 50-170 [facility] Comment on above: Performed By: #### L 501.9520, L100.0100, L501.9985, L506.1001, L500.4050, L509.6001, L503.6030 ####[facility] [address] [place], [address] IRON SATURATION 28.0 Normal 13-59 [facility] Comment on above: Performed By: #### L 501.9520, L100.0100, L501.9985, L506.1001, L500.4050, L509.6001, L503.6030 ####[facility] [address] [place], [address] TIBC 248 ug/dL Low 250-450 [facility] Comment on above: Performed By: #### L 501.9520, L100.0100, L501.9985, L506.1001, L500.4050, L509.6001, L503.6030 ####[facility] [address] [place], [address] UIBC 177 ug/dL Low 228-428 [facility] Comment on above: Performed By: #### L 501.9520, L100.0100, L501.9985, L506.1001, L500.4050, L509.6001, L503.6030 ####[facility] [address] [place], [address] L509.6001on 11-28-2024 CORTISOL 5.66 ug/dL Low 6.02-18.40 [facility] Comment on above: Performed By: #### L 501.9520, L100.0100, L501.9985, L506.1001, L500.4050, L509.6001, L503.6030 ####[facility] [address] [place], [address] Thyroid Stim Hormone (TSH)on 11-28-2024 TSH 0.451 uIU/mL Normal 0.300-4.200 [facility] Comment on above: Performed By: #### L 501.9520, L100.0100, L501.9985, L506.1001, L500.4050, L509.6001, L503.6030 ####[facility] [address] [place], [address] Vitamin D,25 Hydroxyon 11-28 Vitamin D 25-OH 15.7 ng/mL Low 30-100 [facility] Comment on above: Result Comment: Shira min D StatusDeficiency: <20 ng/mL (50nmol/L)Insufficiency: 20-30 ng/mL (50-75 nmol/L)Sufficiency: 30-100 ng/mL (75-250 nmol/L)Toxicity: >100 ng/mL (>250 nmol/L) Performed By: #### L 501.9520, L100.0100, L501.9985, L506.1001, L500.4050, L509.6001, L503.6030 ####[facility] [address] [place], [address] CNCOon 11-13-2024 CNCO Letter Text Normal [facility] CNOVon 11-11-2024 CNOV Office Visit ([facility] ) KATHLEEN VILLA ([id number]) 1995 F CHT Date Time Provider Department 11/11/24 10:30 AM LETICIA HYLTON [facility] During your visit today, we recorded the following information about you: Pulse Blood pressure Weight Height 107/minute 103/66 77 kg 1.753 m Leticia Hylton DO 11/11/2024 10:44 AM Signed FOLLOW UP VISIT CHIEF COMPLAINT Patient presents with: Recheck: F/u visit with abdominal discomfort x 4 weeks Ms. Villa is here today for follow-up of: nausea abdominal pain. HPI I saw this 29y/o in follow up for her gi issues. She developed abd pain followed by pain in the flanks. She was treated with ATB without relief. She describes the pain as electric shock feeling. Her bowels are moving relatively well. The blood sugars are erratic with both high and low. The patient has had 2 smart pills with identical GET of 4hr 6min. Current Outpatient Medications Medication Sig Dispense Refill Doxepin 6 mg tab Take 6 mg by mouth daily at bedtime. QUEtiapine XR (SEROQUEL XR) 50 mg Tb24 Take 50 mg by mouth daily at bedtime. Acetone, Urine, Test (KETONE URINE TEST) In case of concern with DKA, to be used at home 100 Each 3 busPIRone (BUSPAR) 5 mg tablet Take 1 tablet by mouth every 12 hours. mirtazapine (REMERON) 15 mg tablet Take 15 mg by mouth daily at bedtime. insulin glargine (LANTUS SOLOSTAR U-100 INSULIN) 100 unit/mL (3 mL) Inject 43 Units subcutaneously every 24 hours. 38.7 mL 1 Insulin [place], Disposable, (PEN NEEDLE) 32 gauge x 32 Inject 4 Each subcutaneously every 24 hours. Give with each insulin administration. 360 Each 3 insulin lispro (HUMALOG KWIKPEN) 100 unit/mL Please inject three times a day with meals- 1 unit for every 10 grams of carbs AND sliding scale 1 ADMINISTER SUPPLEMENTAL INSULIN REGARDLESS OF MEAL OR NUTRITION INTAKE: If Blood Glucose (mg/dL) is <110 Give 0 units 111-150 Give 0 units 151-200 Give 1 unit 201-250 Give 2 units 251-300 Give 3 units 301-350 Give 4 units 351-400 Give 5 units >400 give 5 units and notify provider. MAX TDD 40 units 45 mL 3 Lancets (MICROLET LANCET) Use as instructed to test blood sugar 4 times daily. E10.65 400 Each 3 insulin lispro (HUMALOG U-100 INSULIN) 100 unit/mL injection Use in the Insulin Pump for TDD of 100 units. 90 mL 1 Needle, Disp, 23 G 23 gauge x 1 ndle Use to inject Solucortef intramuscularly 10 Each 1 promethazine (PHENERGAN) 25 mg tablet Take 1 tablet by mouth every 6 hours as needed. 30 tablet 0 blood sugar diagnostic (CONTOUR NEXT TEST STRIPS) test strip Use as instructed to check blood glucose 5 times daily. E10.65 500 Strip 3 lubiprostone (AMITIZA) 8 mcg capsule Take 1 capsule by mouth twice daily with meals. 60 capsule 5 prochlorperazine (COMPAZINE) 10 mg tablet Take 1 tablet by mouth every 6 hours as needed. 15 tablet 0 glucose 4 gram chewable tablet Take 4 tablets by mouth as needed. 100 tablet 11 SKYRIZI 150 mg/mL injection INJECT 150 MG UNDER THE SKIN EVERY 12 WEEKS No current facility-administered medications for this visit. ALLERGIES Allergen Reactions Keflex [Cephalexin] Other: See Comments Yeast infection Morphine Rash, Itching Zofran [Ondansetron* Other: See Comments Syncope, incontinence Adhesive Tape (Lidia* Rash Indomethacin Rash Percocet [Oxycodone* Rash, Intolerance, Itching Adhesive Rash Social History Tobacco Use Smoking status: Former Current packs/day: 0.00 Average packs/day: 0.3 packs/day for 8.0 years (2.4 ttl pk-yrs) Types: Cigarettes Start date: 06/2011 Quit date: 06/2019 Years since quittin.3 Smokeless tobacco: Never Vaping Use Vaping status: Never Used Substance Use Topics Alcohol use: Yes Comment: very rarely Drug use: Yes Types: Marijuana Comment: medical card previous, daily Medical History: No changes since last visit. REVIEW OF SYSTEMS: GENERAL: weight stable, no fevers. 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 Reviewed with patient during visit today. PHYSICAL EXAMINATION: BP 103/66 Pulse 107 Ht 5' 9 (1.75m) Wt 169 lb 12.1 oz (77.0kg) LMP 06/04/2024 BMI 25.06 kg/(m2). GENERAL APPEARANCE: Well developed and well nourished. SKIN: Skin color, texture, turgor normal. No rashes or lesions. EYES: Conjunctiva normal without icterus. OROPHARYNX: lips, mucosa, and tongue normal, teeth and gums normal NECK: Supple, full range of motion, no lymphadenopathy, normal thyroid, no carotid bruits and no JVD LUNGS: Normal breath sounds, Clear to auscultation, No wheezes, No crackles. HEART:Normal PMI, Regular rate and rhythm, Normal heart sounds, S1 and S2 and No murmurs. NEURO: Alert and oriented in no acute distress. ABDOMEN: Normal bowel sounds, abdomen flat with no distention, Soft, non-tender, no hepat (more content not included)... Normal [facility] DAISYKATHLEEN Swain ([id number]) 1995 F CHT Date Time Provider Department 11/11/24 LETICIA HYLTON [facility] During your visit today, we recorded the following information about you: Guero Hammer LPN 11/11/2024 2:03 PM Signed Please let her know that her x-ray demonstrates a significantly large amount of stool throughout the colon. I am going to send in Trulance for her to try spoke with patient and she is aware of new Rx was sent to pharmacy. Guero Hammer LPN Allergies As of Date: 11/11/2024 Noted Allergy Reaction KEFLEX (CEPHALEXIN) 11/12/2013 14 - Other: See Comments Comments: Yeast infection MORPHINE 08/30/2013 2 - Rash 9 - Itching ZOFRAN (ONDANSETRON HCL (PF)) 01/14/2015 14 - Other: See Comments Comments: Syncope, incontinence ADHESIVE TAPE (ROSINS) 09/04/2013 2 - Rash INDOMETHACIN 11/20/2003 2 - Rash PERCOCET (OXYCODONE-ACETAMINOPH EN)01/10/2014 2 - Rash 5 - Intolerance 9 - Itching ADHESIVE 11/07/2022 2 - Rash Date Reviewed: 11/11/2024 Reviewed by: Leticia Hylton, DO - Fully Assessed Prescriptions as of 11/11/2024 - Doxepin 6 mg tab Take 6 mg by mouth daily at bedtime. - QUEtiapine XR (SEROQUEL XR) 50 mg Tb24 Take 50 mg by mouth daily at bedtime. - plecanatide (TRULANCE) 3 mg tablet Take 1 tablet by mouth once daily. - Acetone, Urine, Test (KETONE URINE TEST) In case of concern with DKA, to be used at home - busPIRone (BUSPAR) 5 mg tablet Take 1 tablet by mouth every 12 hours. - mirtazapine (REMERON) 15 mg tablet Take 15 mg by mouth daily at bedtime. - insulin glargine (LANTUS SOLOSTAR U-100 INSULIN) 100 unit/mL (3 mL) Inject 43 Units subcutaneously every 24 hours. - Insulin [place], Disposable, (PEN NEEDLE) 32 gauge x Inject 4 Each subcutaneously every 24 hours. Give with each insulin administration. - insulin lispro (HUMALOG KWIKPEN) 100 unit/mL Please inject three times a day with meals- 1 unit for every 10 grams of carbs AND sliding scale 1 ADMINISTER SUPPLEMENTAL INSULIN REGARDLESS OF MEAL OR NUTRITION INTAKE: If Blood Glucose (mg/dL) is <110 Give 0 units 111-150 Give 0 units 151-200 Give 1 unit 201-250 Give 2 units 251-300 Give 3 units 301-350 Give 4 units 351-400 Give 5 units >400 give 5 units and notify provider. MAX TDD 40 units - Lancets (MICROLET LANCET) Use as instructed to test blood sugar 4 times daily. E10.65 - insulin lispro (HUMALOG U-100 INSULIN) 100 unit/mL injection Use in the Insulin Pump for TDD of 100 units. - Needle, Disp, 23 G 23 gauge x 1 ndle Use to inject Solucortef intramuscularly - promethazine (PHENERGAN) 25 mg tablet Take 1 tablet by mouth every 6 hours as needed. - blood sugar diagnostic (CONTOUR NEXT TEST STRIPS) test strip Use as instructed to check blood glucose 5 times daily. E10.65 - lubiprostone (AMITIZA) 8 mcg capsule Take 1 capsule by mouth twice daily with meals. - prochlorperazine (COMPAZINE) 10 mg tablet Take 1 tablet by mouth every 6 hours as needed. - glucose 4 gram chewable tablet Take 4 tablets by mouth as needed. - SKYRIZI 150 mg/mL injection INJECT 150 MG UNDER THE SKIN EVERY 12 WEEKS Meds Comments as of 01/09/2020: All meds reviewed before sx. Pt has aye also for after sx. CL 01/09/20 IC PNV prenata plus multivitamin Problem List As Of Date 11/11/2024 Noted Resolved Retinal detachment [H33.20] 10/26/2012 12/25/2012 SUMMARY [V999.95] 12/25/2012 Acute chest pain [R07.9] 12/25/2012 Marfan syndrome [Q87.40] 12/25/2012 DM (diabetes mellitus) (HCC) [E11.9] 12/25/2012 Gastroparesis due to DM (HCC) [E11.43, K31.84] 12/25/2012 PTSD (post-traumatic stress disorder) [F43.10] 12/25/2012 DVT prophylaxis [AVM4560] 12/25/2012 09/04/2013 DISPOSITION AND FOLLOW-UP [V999.01] 12/25/2012 09/04/2013 HTN (hypertension) [I10] Hypertension in , antepartum [O16.9] 09/19/2013 01/08/2014 GBS (group B Streptococcus carrier), +RV cultur*11/11/2013 04/16/2014 [Z34.90] 11/22/2013 04/16/2014 Diabetes mellitus in (HCC) [O24.919] 12/25/2013 04/16/2014 Diabetic ketoacidosis without coma associated w*01/08/2014 02/04/2023 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] 01/08/2014 DVT prophylaxis [SRF7732] 02/25/2014 04/16/2014 care and examination [Z39.2] 02/25/2014 04/16/2014 Near syncope [R55] 06/17/2014 Dyspnea [R06.00] 11/04/2014 Pre-op testing [Z01.818] 11/28/2014 Atelectasis [J98.11] 12/10/2014 Fluid overload [E87.70] 12/10/2014 12/15/2014 Tachycardia, unspecified [R00.0] 12/10/2014 12/12/2014 Post-operative pain [G89.18] 12/10/2014 Anxiety [F41.9] 12/10/2014 12/13/2014 Pre-existing type 1 diabetes mellitus in pregna*08/05/2015 10/03/2018 Hereditary disease in family possibly affecting*10/07/2015 Diabetes (HCC) [E11.9] 10/30/2015 Abdominal pain complicating , antepart*11/12/2015 [Z34.90] 01/28/2016 03/06/2017 Type 1 d (more content not included)... Normal [facility] XR ABDOMEN 1V SUPINEon 11-11 XR ABDOMEN 1V SUPINE * * *Final Report* * * DATE OF EXAM: Nov 11 2024 11:09AM SPX [id number] - XR ABDOMEN 1V SUPINE / PROCEDURE REASON: Chronic idiopathic constipation * * * * Physician Interpretation * * * * RESULT: EXAMINATION: XR ABDOMEN 1V SUPINE CLINICAL HISTORY: CHRONIC IDIOPATHIC CONSTIPATION Chronic idiopathic constipation Technique: XR ABDOMEN 1V SUPINE -- with 1 views on 2 images Comparison: 01/31/2023, CT 04/06/2023 RESULT: Moderate-large colonic stool burden. No dilated bowel. Surgical sutures in the right lower abdomen/pelvis. No acute bony abnormality. IMPRESSION: Moderate-large colonic stool burden. No dilated bowel. Transcribed Using Voice Recognition Transcribe Date/Time: Nov 11 2024 11:10A Dictated by: TRES EVANS DO This examination was interpreted and the report reviewed and electronically signed by: TRES EVANS DO on Nov 11 2024 11:13AM EST [id number] Normal [facility] XR Abdomen Supine and Uprigh ton 11-11-2024 IMPRESSION: Moderate-large colonic stool burden. No dilated bowel. Transcribed Using Voice Recognition Transcribe Date/Time: Nov 11 2024 11:10A Dictated by: TRES EVANS DO This examination was interpreted and the report reviewed and electronically signed by: TRES EVANS DO on Nov 11 2024 11:13AM EST [facility] * * *Final Report* * * DATE OF EXAM: Nov 11 2024 11:09AM SPX [id number] - XR ABDOMEN 1V SUPINE / PROCEDURE REASON: Chronic idiopathic constipation * * * * Physician Interpretation * * * * RESULT: EXAMINATION: XR ABDOMEN 1V SUPINE CLINICAL HISTORY: CHRONIC IDIOPATHIC CONSTIPATION Chronic idiopathic constipation Technique: XR ABDOMEN 1V SUPINE -- with 1 views on 2 images Comparison: 01/31/2023, CT 04/06/2023 RESULT: Moderate-large colonic stool burden. No dilated bowel. Surgical sutures in the right lower abdomen/pelvis. No acute bony abnormality. [facility] Provider, [facility] Prabha Ettrick - 11/11/2024 * * *Final Report* * * DATE OF EXAM: Nov 11 2024 11:09AM SPX [id number] - XR ABDOMEN 1V SUPINE / PROCEDURE REASON: Chronic idiopathic constipation * * * * Physician Interpretation * * * * RESULT: EXAMINATION: XR ABDOMEN 1V SUPINE CLINICAL HISTORY: CHRONIC IDIOPATHIC CONSTIPATION Chronic idiopathic constipation Technique: XR ABDOMEN 1V SUPINE -- with 1 views on 2 images Comparison: 01/31/2023, CT 04/06/2023 RESULT: Moderate-large colonic stool burden. No dilated bowel. Surgical sutures in the right lower abdomen/pelvis. No acute bony abnormality. IMPRESSION IMPRESSION: Moderate-large colonic stool burden. No dilated bowel. Transcribed Using Voice Recognition Transcribe Date/Time: Nov 11 2024 11:10A Dictated by: TRES EVANS DO This examination was interpreted and the report reviewed and electronically signed by: TRES EVANS DO on Nov 11 2024 11:13AM EST [facility] Study observation (narrative) [facility] XR Abdomen Supine and Uprigh tOrdered By: [facility] Provider on 11-11-2024 [facility] Basic Metabolic Profile (BMP )on 11-06-2024 BUN/CRE 16.8 RATIO Normal 10-20 [facility] Comment on above: Performed By: #### L 500.2500 ####[facility] [address] [place], [address] Calcium [Mass/Vol] 8.0 mg/dL Normal 7.6-11.0 [facility] Comment on above: Performed By: #### L 500.2500 ####[facility] [address] [place], [address] Chloride [Moles/Vol] 104 mmol/L Normal 98-108 [facility] Comment on above: Performed By: #### L 500.2500 ####[facility] [address] [place], [address] CO2 [Moles/Vol] 21.1 mmol/L Normal 21.0-32.0 [facility] Comment on above: Performed By: #### L 500.2500 ####[facility] [address] [place], [address] Creatinine [Mass/Vol] 0.64 mg/dL Low 0.70-1.20 [facility] Comment on above: Performed By: #### L 500.2500 ####[facility] [address] [place], [address] ECRCL 134.33 ml/min Normal 50-250 [facility] Comment on above: Performed By: #### L 500.2500 ####[facility] [address] [place], [address] GAP 12 Normal 5-15 [facility] Comment on above: Performed By: #### L 500.2500 ####[facility] [address] [place], [address] GFR/1.73 sq M.predicted among non-blacks MDRD (S/P/Bld) [Vol rate/Area] 122 mL/min/{1.73_m2} Normal >60 [facility] Comment on above: Result Comment: mL/m in/1.73m2 CKD-EPI Creatinine Equation (2020) Performed By: #### L 500.2500 ####[facility] [address] [place], [address] Glucose [Mass/Vol] 64 mg/dL Low 70-99 [facility] Comment on above: Performed By: #### L 500.2500 ####[facility] [address] [place], [address] Potassium [Moles/Vol] 3.3 mmol/L Normal 3.3-5.1 [facility] Comment on above: Performed By: #### L 500.2500 ####[facility] [address] [place], [address] Sodium [Moles/Vol] 137 mmol/L Normal 133-145 [facility] Comment on above: Performed By: #### L 500.2500 ####[facility] [address] [place], [address] Urea nitrogen [Mass/Vol] 11 mg/dL Normal 4-19 [facility] Comment on above: Performed By: #### L 500.2500 ####[facility] [address] [place], [address] Bedside Glucoseon 11-06-2024 FINGERSTICK GLU 100 mg/dL Normal 74-106 [facility] Comment on above: Result Comment: EDGAR GEMENT OF PATIENT CARE PER NURSING PROTOCOL Performed By: #### L 501.080 ####[facility] [address] [place], [address] FINGERSTICK GLU 151 mg/dL High 74-106 [facility] Comment on above: Result Comment: EDGAR GEMENT OF PATIENT CARE PER NURSING PROTOCOL Performed By: #### L 501.080 ####[facility] [address] [place], [address] FINGERSTICK GLU 153 mg/dL High 74-106 [facility] Comment on above: Result Comment: EDGAR GEMENT OF PATIENT CARE PER NURSING PROTOCOL Performed By: #### L 501.080 ####[facility] [address] [place], [address] FINGERSTICK GLU 50 mg/dL Low 74-106 [facility] Comment on above: Result Comment: EDGAR GEMENT OF PATIENT CARE PER NURSING PROTOCOL Performed By: #### L 501.080 ####[facility] [address] [place], [address] FINGERSTICK GLU 141 mg/dL High 74-106 [facility] Comment on above: Result Comment: EDGAR GEMENT OF PATIENT CARE PER NURSING PROTOCOL Performed By: #### L 501.080 ####[facility] [address] [place], [address] FINGERSTICK GLU 129 mg/dL High 74-106 [facility] Comment on above: Result Comment: EDGAR GEMENT OF PATIENT CARE PER NURSING PROTOCOL Performed By: #### L 501.080 ####[facility] [address] [place], [address] CBC W/Diff, Automatedon 10-26 Absolute Lymph 2.60 X10 3/uL Normal 0.83-4.51 [facility] Comment on above: Performed By: #### L 100.0100 ####[facility] [address] [place], [address] Absolute Neut 7.6 X10 3/uL Normal 2.0-7.7 [facility] Comment on above: Performed By: #### L 100.0100 ####[facility] [address] [place], [address] Basophils/100 WBC (Bld) 0.5 % Normal 0-1 [facility] Comment on above: Performed By: #### L 100.0100 ####[facility] [address] [place], [address] Eosinophils/100 WBC (Bld) 0.4 % Normal 0-5 [facility] Comment on above: Performed By: #### L 100.0100 ####[facility] [address] [place], [address] Erythrocyte distribution width (RBC) [Ratio] 13.7 % Normal 11.6-14.6 [facility] Comment on above: Performed By: #### L 100.0100 ####[facility] [address] [place], [address] Hematocrit (Bld) [Volume fraction] 36.0 % Low 37-47 [facility] Comment on above: Performed By: #### L 100.0100 ####[facility] [address] [place], [address] Hemoglobin (Bld) [Mass/Vol] 12.2 g/dL Normal 12.0-15.0 [facility] Comment on above: Performed By: #### L 100.0100 ####[facility] [address] [place], [address] IG% 1.000 High 0.0-0.9 [facility] Comment on above: Result Comment: IG% - Immature Granulocytes (promyelocytes, myelocytes andmetamyelocytes) > 1% indicates that a LEFT SHIFT is Present. Performed By: #### L 100.0100 ####[facility] [address] [place], [address] Lymphocytes/100 WBC (Bld) 23.4 % Normal 19-41 [facility] Comment on above: Performed By: #### L 100.0100 ####[facility] [address] [place], [address] MCH (RBC) [Entitic mass] 29.7 pg Normal 27.0-32.0 [facility] Comment on above: Performed By: #### L 100.0100 ####[facility] [address] [place], [address] MCHC (RBC) [Mass/Vol] 33.9 g/dL Normal 32-36 [facility] Comment on above: Performed By: #### L 100.0100 ####[facility] [address] [place], [address] MCV (RBC) [Entitic vol] 87.6 fL Normal 81-99 [facility] Comment on above: Performed By: #### L 100.0100 ####[facility] [address] [place], [address] Monocytes/100 WBC (Bld) 6.7 % Normal 0-10 [facility] Comment on above: Performed By: #### L 100.0100 ####[facility] [address] [place], [address] Neutrophils/100 WBC (Bld) 68.0 % Normal 47-70 [facility] Comment on above: Performed By: #### L 100.0100 ####[facility] [address] [place], [address] Nucleated RBC (Bld) [#/Vol] 0 10*3/uL Normal 0-5 [facility] Comment on above: Performed By: #### L 100.0100 ####[facility] [address] [place], [address] Platelet mean volume (Bld) [Entitic vol] 10.8 fL Normal 6.2-12.0 [facility] Comment on above: Performed By: #### L 100.0100 ####[facility] [address] [place], [address] Platelets (Bld) [#/Vol] 188 10*3/uL Normal 150-450 [facility] Comment on above: Performed By: #### L 100.0100 ####[facility] [address] [place], [address] RBC (Bld) [#/Vol] 4.11 10*6/uL Low 4.2-5.4 [facility] Comment on above: Performed By: #### L 100.0100 ####[facility] [address] [place], [address] RDW SD 43.6 fl Normal 35.1-43.9 [facility] Comment on above: Performed By: #### L 100.0100 ####[facility] [address] [place], [address] WBC (Bld) [#/Vol] 11.1 10*3/uL High 4.4-11.0 [facility] Comment on above: Performed By: #### L 100.0100 ####[facility] [address] [place], [address] Comprehensive Metabolic Prof ilon 11-06-2024 Albumin [Mass/Vol] 3.6 g/dL Normal 3.5-5.0 [facility] Comment on above: Order Comment: CMP-T IMED FOR A Q6 BMP Performed By: #### L 501.2300, L501.5200, L500.4050 ####[facility] [address] [place], [address] Albumin/Globulin [Mass ratio] 1.6 {ratio} Normal 0.9-2.4 [facility] Comment on above: Order Comment: CMP-T IMED FOR A Q6 BMP Performed By: #### L 501.2300, L501.5200, L500.4050 ####[facility] [address] [place], [address] ALK PHOS 76 U/L Normal 35-104 [facility] Comment on above: Order Comment: CMP-T IMED FOR A Q6 BMP Performed By: #### L 501.2300, L501.5200, L500.4050 ####[facility] [address] [place], [address] ALT [Catalytic activity/Vol] 14 U/L Normal <=34 [facility] Comment on above: Order Comment: CMP-T IMED FOR A Q6 BMP Performed By: #### L 501.2300, L501.5200, L500.4050 ####[facility] [address] [place], [address] AST [Catalytic activity/Vol] 17 U/L Normal <=31 [facility] Comment on above: Order Comment: CMP-T IMED FOR A Q6 BMP Performed By: #### L 501.2300, L501.5200, L500.4050 ####[facility] [address] [place], [address] Bilirubin [Mass/Vol] 0.91 mg/dL Normal 0.00-1.30 [facility] Comment on above: Order Comment: CMP-T IMED FOR A Q6 BMP Performed By: #### L 501.2300, L501.5200, L500.4050 ####[facility] [address] [place], [address] BUN/CRE 12.2 RATIO Normal 10-20 [facility] Comment on above: Order Comment: CMP-T IMED FOR A Q6 BMP Performed By: #### L 501.2300, L501.5200, L500.4050 ####[facility] [address] [place], [address] Calcium [Mass/Vol] 8.2 mg/dL Normal 7.6-11.0 [facility] Comment on above: Order Comment: CMP-T IMED FOR A Q6 BMP Performed By: #### L 501.2300, L501.5200, L500.4050 ####[facility] [address] [place], [address] Chloride [Moles/Vol] 105 mmol/L Normal 98-108 [facility] Comment on above: Order Comment: CMP-T IMED FOR A Q6 BMP Performed By: #### L 501.2300, L501.5200, L500.4050 ####[facility] [address] [place], [address] CO2 [Moles/Vol] 22.2 mmol/L Normal 21.0-32.0 [facility] Comment on above: Order Comment: CMP-T IMED FOR A Q6 BMP Performed By: #### L 501.2300, L501.5200, L500.4050 ####[facility] [address] [place], [address] Creatinine [Mass/Vol] 0.61 mg/dL Low 0.70-1.20 [facility] Comment on above: Order Comment: CMP-T IMED FOR A Q6 BMP Performed By: #### L 501.2300, L501.5200, L500.4050 ####[facility] [address] [place], [address] ECRCL 140.93 ml/min Normal 50-250 [facility] Comment on above: Order Comment: CMP-T IMED FOR A Q6 BMP Performed By: #### L 501.2300, L501.5200, L500.4050 ####[facility] [address] [place], [address] GAP 11 Normal 5-15 [facility] Comment on above: Order Comment: CMP-T IMED FOR A Q6 BMP Performed By: #### L 501.2300, L501.5200, L500.4050 ####[facility] [address] [place], [address] GFR/1.73 sq M.predicted among non-blacks MDRD (S/P/Bld) [Vol rate/Area] 123 mL/min/{1.73_m2} Normal >60 [facility] Comment on above: Order Comment: CMP-T IMED FOR A Q6 BMP Result Comment: mL/m in/1.73m2 CKD-EPI Creatinine Equation (2020) Performed By: #### L 501.2300, L501.5200, L500.4050 ####[facility] [address] [place], [address] Globulin (S) [Mass/Vol] 2.2 g/dL Normal 2.2-4.2 [facility] Comment on above: Order Comment: CMP-T IMED FOR A Q6 BMP Performed By: #### L 501.2300, L501.5200, L500.4050 ####[facility] [address] [place], [address] Glucose [Mass/Vol] 122 mg/dL High 70-99 [facility] Comment on above: Order Comment: CMP-T IMED FOR A Q6 BMP Performed By: #### L 501.2300, L501.5200, L500.4050 ####[facility] [address] [place], [address] Potassium [Moles/Vol] 3.4 mmol/L Normal 3.3-5.1 [facility] Comment on above: Order Comment: CMP-T IMED FOR A Q6 BMP Performed By: #### L 501.2300, L501.5200, L500.4050 ####[facility] [address] [place], [address] Sodium [Moles/Vol] 138 mmol/L Normal 133-145 [facility] Comment on above: Order Comment: CMP-T IMED FOR A Q6 BMP Performed By: #### L 501.2300, L501.5200, L500.4050 ####[facility] [address] [place], [address] T PROT 5.9 g/dL Normal 5.9-8.4 [facility] Comment on above: Order Comment: CMP-T IMED FOR A Q6 BMP Performed By: #### L 501.2300, L501.5200, L500.4050 ####[facility] [address] [place], [address] Urea nitrogen [Mass/Vol] 7 mg/dL Normal 4-19 [facility] Comment on above: Order Comment: CMP-T IMED FOR A Q6 BMP Performed By: #### L 501.2300, L501.5200, L500.4050 ####[facility] [address] [place], [address] Discharge Instructionon 10-26 Discharge Instruction Normal [facility] Magnesiumon 11-06-2024 Magnesium [Mass/Vol] 2.2 mg/dL Normal 1.5-2.2 [facility] Comment on above: Order Comment: CMP-T IMED FOR A Q6 BMP Performed By: #### L 501.2300, L501.5200, L500.4050 ####[facility] [address] [place], [address] Phosphoruson 11-06-2024 Phosphate [Mass/Vol] 2.1 mg/dL Low 2.7-4.5 [facility] Comment on above: Order Comment: CMP-T IMED FOR A Q6 BMP Performed By: #### L 501.2300, L501.5200, L500.4050 ####[facility] [address] [place], [address] Urine Drug Screen (VISTA)on 11-06-2024 AMPHETAMINES Negative Normal <1000 ng/mL [facility] Comment on above: Performed By: #### L 505.5000 ####[facility] [address] [place], [address] BARBITIURATES Negative Normal < 200 ng/mL [facility] Comment on above: Performed By: #### L 505.5000 ####[facility] [address] [place], [address] BENZODIAZIPINE Negative Normal < 200 ng/mL [facility] Comment on above: Performed By: #### L 505.5000 ####[facility] [address] [place], [address] BUP Ur Drug Scr Negative Normal < 200 ng/mL [facility] Comment on above: Performed By: #### L 505.5000 ####[facility] [address] [place], [place], [phone] COCAINE Negative Normal < 300 ng/mL [facility] Comment on above: Performed By: #### L 505.5000 ####[facility] [address] [place], [address] Fentanyl Negative Normal [facility] Comment on above: Performed By: #### L 505.5000 ####[facility] [address] [place], [address] METHADONE Negative Normal < 300 ng/mL [facility] Comment on above: Performed By: #### L 505.5000 ####[facility] [address] [place], [address] OPIATES Negative Normal < 300 ng/mL [facility] Comment on above: Performed By: #### L 505.5000 ####[facility] [address] [place], [address] OXYCODONE Negative Normal < 100 ng/mL [facility] Comment on above: Performed By: #### L 505.5000 ####[facility] [address] [place], [address] PCP Negative Normal < 25 ng/mL [facility] Comment on above: Performed By: #### L 505.5000 ####[facility] [address] [place], [address] THC Positive Normal < 50 ng/mL [facility] Comment on above: Result Comment: If c onfirmation testing is needed, a separate order will berequired to send out testing to the reference laboratory. Performed By: #### L 505.5000 ####[facility] [address] [place], [address] Basic Metabolic Profile (BMP )on 11-05-2024 BUN/CRE 18.5 RATIO Normal 10-20 [facility] Comment on above: Performed By: #### L 500.2500 ####[facility] [address] [place], [address] Calcium [Mass/Vol] 7.5 mg/dL Low 7.6-11.0 [facility] Comment on above: Performed By: #### L 500.2500 ####[facility] [address] [place], [address] Chloride [Moles/Vol] 99 mmol/L Normal 98-108 [facility] Comment on above: Performed By: #### L 500.2500 ####[facility] [address] [place], [address] CO2 [Moles/Vol] 15.7 mmol/L Low 21.0-32.0 [facility] Comment on above: Performed By: #### L 500.2500 ####[facility] [address] [place], [address] Creatinine [Mass/Vol] 0.74 mg/dL Normal 0.70-1.20 [facility] Comment on above: Performed By: #### L 500.2500 ####[facility] [address] [place], [address] ECRCL 116.17 ml/min Normal 50-250 [facility] [facility] Comment on above: Performed By: #### L 500.2500 ####[facility] [address] [place], [address] GAP 18 High 5-15 [facility] Comment on above: Performed By: #### L 500.2500 ####[facility] [address] [place], [address] GFR/1.73 sq M.predicted among non-blacks MDRD (S/P/Bld) [Vol rate/Area] 111 mL/min/{1.73_m2} Normal >60 [facility] Comment on above: Result Comment: mL/m in/1.73m2 CKD-EPI Creatinine Equation (2020) Performed By: #### L 500.2500 ####[facility] [address] [place], [address] Glucose [Mass/Vol] 176 mg/dL High 70-99 [facility] Comment on above: Performed By: #### L 500.2500 ####[facility] [address] [place], [address] Potassium [Moles/Vol] 4.8 mmol/L Normal 3.3-5.1 [facility] Comment on above: Performed By: #### L 500.2500 ####[facility] [address] [place], [address] Sodium [Moles/Vol] 133 mmol/L Normal 133-145 [facility] Comment on above: Performed By: #### L 500.2500 ####[facility] [address] [place], [address] Urea nitrogen [Mass/Vol] 14 mg/dL Normal 4-19 [facility] Comment on above: Performed By: #### L 500.2500 ####[facility] [address] [place], [address] BUN Normal 4-19 [facility] Comment on above: Result Comment: DUPL ICATE Performed By: #### L 500.2500 ####[facility] [address] [place], [address] BUN/CRE Normal 10-20 [facility] Comment on above: Result Comment: DUPL ICATE Performed By: #### L 500.2500 ####[facility] [address] [place], [address] Calcium Normal 7.6-11.0 [facility] Comment on above: Result Comment: DUPL ICATE Performed By: #### L 500.2500 ####[facility] [address] [place], [address] CL Normal 98-108 [facility] Comment on above: Result Comment: DUPL ICATE Performed By: #### L 500.2500 ####[facility] [address] [place], [address] CO2 Normal 21.0-32.0 [facility] Comment on above: Result Comment: DUPL ICATE Performed By: #### L 500.2500 ####[facility] [address] [place], [address] CREAT,SERUM Normal 0.70-1.20 [facility] Comment on above: Result Comment: DUPL ICATE Performed By: #### L 500.2500 ####[facility] [address] [place], [address] eGFR Normal >60 [facility] Comment on above: Result Comment: DUPL ICATE Performed By: #### L 500.2500 ####[facility] [address] [place], [address] GAP Normal 5-15 [facility] Comment on above: Result Comment: DUPL ICATE Performed By: #### L 500.2500 ####[facility] [address] [place], [address] GLU Normal 70-99 [facility] Comment on above: Result Comment: DUPL ICATE Performed By: #### L 500.2500 ####[facility] [address] [place], [address] Potassium Normal 3.3-5.1 [facility] Comment on above: Result Comment: DUPL ICATE Performed By: #### L 500.2500 ####[facility] [address] [place], [address] Basic Metabolic Profile (BMP) Normal 133-145 [facility] Comment on above: Result Comment: DUPL ICATE Performed By: #### L 500.2500 ####[facility] [address] [place], [address] Bedside Glucoseon 11-05-2024 FINGERSTICK GLU 109 mg/dL High 74-106 [facility] Comment on above: Result Comment: EDGAR GEMENT OF PATIENT CARE PER NURSING PROTOCOL Performed By: #### L 501.080 ####[facility] [address] [place], [address] FINGERSTICK GLU 222 mg/dL High 74-106 [facility] Comment on above: Result Comment: EDGAR GEMENT OF PATIENT CARE PER NURSING PROTOCOL Performed By: #### L 501.080 ####[facility] [address] [place], [address] [facility] G[facility] Positive Normal [facility] Comment on above: Performed By: #### L 9000.0800 ####[facility] [address] [place], [address] Base excess Calc (Bld) [Moles/Vol] -5 mmol/L Low -2 to +2 [facility] Comment on above: Performed By: #### L 9000.0800 ####[facility] [address] [place], [address] Blood Gas Type ART [facility] Comment on above: Performed By: #### L 9000.0800 ####[facility] [address] [place], [address] CO2 [Moles/Vol] 21 mmol/L [facility] Comment on above: Performed By: #### L 9000.0800 ####[facility] [address] [place], [address] HCO3 (Bld) [Moles/Vol] 19.9 mmol/L Low 22-26 [facility] Comment on above: Performed By: #### L 9000.0800 ####[facility] [address] [place], [address] Mode Not entered [facility] Comment on above: Performed By: #### L 9000.0800 ####[facility] [address] [place], [address] O2 Delivery Dev Room Air [facility] Comment on above: Performed By: #### L 9000.0800 ####[facility] [address] [place], [address] pCO2 31.1 mmHg Low 35-45 [facility] Comment on above: Performed By: #### L 0.0800 ####[facility] [address] [place], [address] pH (Bld) 7.42 [pH] Normal 7.35-7.45 [facility] Comment on above: Performed By: #### L 9000.0800 ####[facility] [address] [place], [address] PO2 89 mmHG Normal 75-100 [facility] Comment on above: Performed By: #### L 9000.0800 ####[facility] [address] [place], [address] SITE L Radial Normal [facility] Comment on above: Performed By: #### L 0.0800 ####[facility] [address] [place], [address] SO2 97 Normal 95-99 [facility] Comment on above: Performed By: #### L 9000.0800 ####[facility] [address] [place], [address] CBC W/Diff, Automatedon 10-26 Absolute Lymph 0.93 X10 3/uL Normal 0.83-4.51 [facility] Comment on above: Performed By: #### L 700.6800, L501.2450, L503.6005, L100.0100, L500.4050 ####[facility] [address] [place], [address] Absolute Neut 13.4 X10 3/uL High 2.0-7.7 [facility] Comment on above: Performed By: #### L 700.6800, L501.2450, L503.6005, L100.0100, L500.4050 ####[facility] [address] [place], [address] Basophils/100 WBC (Bld) 0.2 % Normal 0-1 [facility] Comment on above: Performed By: #### L 700.6800, L501.2450, L503.6005, L100.0100, L500.4050 ####[facility] [address] [place], [address] Eosinophils/100 WBC (Bld) 0.0 % Normal 0-5 [facility] Comment on above: Performed By: #### L 700.6800, L501.2450, L503.6005, L100.0100, L500.4050 ####[facility] [address] [place], [address] Erythrocyte distribution width (RBC) [Ratio] 13.6 % Normal 11.6-14.6 [facility] Comment on above: Performed By: #### L 700.6800, L501.2450, L503.6005, L100.0100, L500.4050 ####[facility] [address] [place], [address] Hematocrit (Bld) [Volume fraction] 38.0 % Normal 37-47 [facility] Comment on above: Performed By: #### L 700.6800, L501.2450, L503.6005, L100.0100, L500.4050 ####[facility] [address] [place], [address] Hemoglobin (Bld) [Mass/Vol] 12.7 g/dL Normal 12.0-15.0 [facility] Comment on above: Performed By: #### L 700.6800, L501.2450, L503.6005, L100.0100, L500.4050 ####[facility] [address] [place], [address] IG% 1.000 High 0.0-0.9 [facility] Comment on above: Result Comment: IG% - Immature Granulocytes (promyelocytes, myelocytes andmetamyelocytes) > 1% indicates that a LEFT SHIFT is Present. Performed By: #### L 700.6800, L501.2450, L503.6005, L100.0100, L500.4050 ####[facility] [address] [place], [address] Lymphocytes/100 WBC (Bld) 6.1 % Low 19-41 [facility] Comment on above: Performed By: #### L 700.6800, L501.2450, L503.6005, L100.0100, L500.4050 ####[facility] [address] [place], [address] MCH (RBC) [Entitic mass] 29.9 pg Normal 27.0-32.0 [facility] Comment on above: Performed By: #### L 700.6800, L501.2450, L503.6005, L100.0100, L500.4050 ####[facility] [address] [place], [address] MCHC (RBC) [Mass/Vol] 33.4 g/dL Normal 32-36 [facility] Comment on above: Performed By: #### L 700.6800, L501.2450, L503.6005, L100.0100, L500.4050 ####[facility] [address] [place], [address] MCV (RBC) [Entitic vol] 89.4 fL Normal 81-99 [facility] Comment on above: Performed By: #### L 700.6800, L501.2450, L503.6005, L100.0100, L500.4050 ####[facility] [address] [place], [address] Monocytes/100 WBC (Bld) 4.7 % Normal 0-10 [facility] Comment on above: Performed By: #### L 700.6800, L501.2450, L503.6005, L100.0100, L500.4050 ####[facility] [address] [place], [address] Neutrophils/100 WBC (Bld) 88.0 % High 47-70 [facility] Comment on above: Performed By: #### L 700.6800, L501.2450, L503.6005, L100.0100, L500.4050 ####[facility] [address] [place], [address] Nucleated RBC (Bld) [#/Vol] 0 10*3/uL Normal 0-5 [facility] Comment on above: Performed By: #### L 700.6800, L501.2450, L503.6005, L100.0100, L500.4050 ####[facility] [address] [place], [address] Platelet mean volume (Bld) [Entitic vol] 11.7 fL Normal 6.2-12.0 [facility] Comment on above: Performed By: #### L 700.6800, L501.2450, L503.6005, L100.0100, L500.4050 ####[facility] [address] [place], [address] Platelets (Bld) [#/Vol] 201 10*3/uL Normal 150-450 [facility] Comment on above: Performed By: #### L 700.6800, L501.2450, L503.6005, L100.0100, L500.4050 ####[facility] [address] [place], [address] RBC (Bld) [#/Vol] 4.25 10*6/uL Normal 4.2-5.4 [facility] Comment on above: Performed By: #### L 700.6800, L501.2450, L503.6005, L100.0100, L500.4050 ####[facility] [address] [place], [place], [address] RDW SD 44.6 fl High 35.1-43.9 [facility] Comment on above: Performed By: #### L 700.6800, L501.2450, L503.6005, L100.0100, L500.4050 ####[facility] [address] [place], [place], [address] WBC (Bld) [#/Vol] 15.2 10*3/uL High 4.4-11.0 [facility] Comment on above: Performed By: #### L 700.6800, L501.2450, L503.6005, L100.0100, L500.4050 ####[facility] [address] [place], [address] [facility] KATHLEEN VILLA ([id number]) [address] [facility] Date Time Provider Department 11/05/24 LETICIA HYLTON [facility] During your visit today, we recorded the following information about you: Chelsey Haywood 11/05/2024 1:11 PM Signed Patient called and left v/m crying. States she has an appointment but is having some major issues and needs to talk to someone about what to do. She did not state what kinds of issues she is having however she was crying on the phone. Guero Hammer LPN 11/05/2024 1:33 PM Addendum Called patient and she is crying in pain Patient she is miserable for 3 weeks with pain and nausea and vomiting.She went to ER x 2 and she was send back home withy some atb for uti and nausea meds.Per patient statement ER dr told her is her GP pain and she need check with us.During phone conversation patient is crying and she can't hold the pain.Her BM are normal (soft and she is not constipated.Patient encouraged to go back to ER d/I increasing pain and she can not functioning appropriately. Please advice. SKYE Cowan Michael S, DO 11/05/2024 2:46 PM Signed Agree with ER. The patient actually does not have gastroparesis although she keeps stating that she does. Her smart pill in 2020 demonstrated no evidence of gastroparesis. What she has is chronic constipation and abdominal pain. Allergies As of Date: 11/05/2024 Noted Allergy Reaction KEFLEX (CEPHALEXIN) 11/12/2013 14 - Other: See Comments Comments: Yeast infection MORPHINE 08/30/2013 2 - Rash 9 - Itching ZOFRAN (ONDANSETRON HCL (PF)) 01/14/2015 14 - Other: See Comments Comments: Syncope, incontinence ADHESIVE TAPE (ROSINS) 09/04/2013 2 - Rash INDOMETHACIN 11/20/2003 2 - Rash PERCOCET (OXYCODONE-ACETAMINOPH EN)01/10/2014 2 - Rash 5 - Intolerance 9 - Itching ADHESIVE 11/07/2022 2 - Rash Date Reviewed: 09/02/2024 Reviewed by: Leticia Hylton DO - Fully Assessed Reason for Visit: Patient states having major issues [Other] Prescriptions as of 11/05/2024 - Acetone, Urine, Test (KETONE URINE TEST) In case of concern with DKA, to be used at home - busPIRone (BUSPAR) 5 mg tablet Take 1 tablet by mouth every 12 hours. - mirtazapine (REMERON) 15 mg tablet Take 15 mg by mouth daily at bedtime. - insulin glargine (LANTUS SOLOSTAR U-100 INSULIN) 100 unit/mL (3 mL) Inject 43 Units subcutaneously every 24 hours. - Insulin [place], Disposable, (PEN NEEDLE) 32 gauge x 5/32 Inject 4 Each subcutaneously every 24 hours. Give with each insulin administration. - insulin lispro (HUMALOG KWIKPEN) 100 unit/mL Please inject three times a day with meals- 1 unit for every 10 grams of carbs AND sliding scale 1 ADMINISTER SUPPLEMENTAL INSULIN REGARDLESS OF MEAL OR NUTRITION INTAKE: If Blood Glucose (mg/dL) is <110 Give 0 units 111-150 Give 0 units 151-200 Give 1 unit 201-250 Give 2 units 251-300 Give 3 units 301-350 Give 4 units 351-400 Give 5 units >400 give 5 units and notify provider. MAX TDD 40 units - Lancets (MICROLET LANCET) Use as instructed to test blood sugar 4 times daily. E10.65 - insulin lispro (HUMALOG U-100 INSULIN) 100 unit/mL injection Use in the Insulin Pump for TDD of 100 units. - Needle, Disp, 23 G 23 gauge x 1 ndle Use to inject Solucortef intramuscularly - promethazine (PHENERGAN) 25 mg tablet Take 1 tablet by mouth every 6 hours as needed. - blood sugar diagnostic (CONTOUR NEXT TEST STRIPS) test strip Use as instructed to check blood glucose 5 times daily. E10.65 - lubiprostone (AMITIZA) 8 mcg capsule Take 1 capsule by mouth twice daily with meals. - prochlorperazine (COMPAZINE) 10 mg tablet Take 1 tablet by mouth every 6 hours as needed. - glucose 4 gram chewable tablet Take 4 tablets by mouth as needed. - SKYRIZI 150 mg/mL injection INJECT 150 MG UNDER THE SKIN EVERY 12 WEEKS Meds Comments as of 01/09/2020: All meds reviewed before sx. Pt has aye also for after sx. CL 01/09/20 IC PNV prenata plus multivitamin Problem List As Of Date 11/05/2024 Noted Resolved Retinal detachment [H33.20] 10/26/2012 12/25/2012 SUMMARY [V999.95] 12/25/2012 Acute chest pain [R07.9] 12/25/2012 Marfan syndrome [Q87.40] 12/25/2012 DM (diabetes mellitus) (HCC) [E11.9] 12/25/2012 Gastroparesis due to DM (HCC) [E11.43, K31.84] 12/25/2012 PTSD (post-traumatic stress disorder) [F43.10] 12/25/2012 DVT prophylaxis [JTP7379] 12/25/2012 09/04/2013 DISPOSITION AND FOLLOW-UP [V999.01] 12/25/2012 09/04/2013 HTN (hypertension) [I10] Hypertension in , antepartum [O16.9] 09/19/2013 01/08/2014 GBS (group B Streptococcus carrier), +RV cultur*11/11/2013 04/16/2014 [Z34.90] 11/22/2013 04/16/2014 Diabetes mellitus in (HCC) [O24.919] 12/25/2013 04/16/2014 Diabetic ketoacidosis without coma associated w*01/08/2014 02/04/2023 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] (more content not included)... Normal [facility] Metabolic Prof ilon 11-05-2024 Albumin [Mass/Vol] 4.1 g/dL Normal 3.5-5.0 [facility] Comment on above: Performed By: #### L 700.6800, L501.2450, L503.6005, L100.0100, L500.4050 ####[facility] [address] [place], [address] Albumin/Globulin [Mass ratio] 1.5 {ratio} Normal 0.9-2.4 [facility] Comment on above: Performed By: #### L 700.6800, L501.2450, L503.6005, L100.0100, L500.4050 ####[facility] [address] [place], [address] ALK PHOS 89 U/L Normal 35-104 [facility] Comment on above: Performed By: #### L 700.6800, L501.2450, L503.6005, L100.0100, L500.4050 ####[facility] [address] [place], [address] ALT [Catalytic activity/Vol] 17 U/L Normal <=34 [facility] Comment on above: Performed By: #### L 700.6800, L501.2450, L503.6005, L100.0100, L500.4050 ####[facility] [address] [place], [address] AST [Catalytic activity/Vol] 21 U/L Normal <=31 [facility] Comment on above: Performed By: #### L 700.6800, L501.2450, L503.6005, L100.0100, L500.4050 ####[facility] [address] [place], [address] Bilirubin [Mass/Vol] 1.15 mg/dL Normal 0.00-1.30 [facility] Comment on above: Performed By: #### L 700.6800, L501.2450, L503.6005, L100.0100, L500.4050 ####[facility] [address] [place], [address] BUN/CRE 18.4 RATIO Normal 10-20 [facility] Comment on above: Performed By: #### L 700.6800, L501.2450, L503.6005, L100.0100, L500.4050 ####[facility] [address] [place], [address] Calcium [Mass/Vol] 8.2 mg/dL Normal 7.6-11.0 [facility] Comment on above: Performed By: #### L 700.6800, L501.2450, L503.6005, L100.0100, L500.4050 ####[facility] [address] [place], [address] Chloride [Moles/Vol] 94 mmol/L Low 98-108 [facility] Comment on above: Performed By: #### L 700.6800, L501.2450, L503.6005, L100.0100, L500.4050 ####[facility] [address] [place], [address] CO2 [Moles/Vol] 12.8 mmol/L Low 21.0-32.0 [facility] Comment on above: Performed By: #### L 700.6800, L501.2450, L503.6005, L100.0100, L500.4050 ####[facility] [address] [place], [address] Creatinine [Mass/Vol] 0.86 mg/dL Normal 0.70-1.20 [facility] Comment on above: Performed By: #### L 700.6800, L501.2450, L503.6005, L100.0100, L500.4050 ####[facility] [address] [place], [address] ECRCL 99.96 ml/min Normal 50-250 [facility] Comment on above: Performed By: #### L 700.6800, L501.2450, L503.6005, L100.0100, L500.4050 ####[facility] [address] [place], [address] GAP 27 High 5-15 [facility] Comment on above: Performed By: #### L 700.6800, L501.2450, L503.6005, L100.0100, L500.4050 ####[facility] [address] [place], [address] GFR/1.73 sq M.predicted among non-blacks MDRD (S/P/Bld) [Vol rate/Area] 93 mL/min/{1.73_m2} Normal >60 [facility] Comment on above: Result Comment: mL/m in/1.73m2 CKD-EPI Creatinine Equation (2020) Performed By: #### L 700.6800, L501.2450, L503.6005, L100.0100, L500.4050 ####[facility] [address] [place], [address] Globulin (S) [Mass/Vol] 2.8 g/dL Normal 2.2-4.2 [facility] Comment on above: Performed By: #### L 700.6800, L501.2450, L503.6005, L100.0100, L500.4050 ####[facility] [address] [place], [address] Glucose [Mass/Vol] 251 mg/dL High 70-99 [facility] Comment on above: Performed By: #### L 700.6800, L501.2450, L503.6005, L100.0100, L500.4050 ####[facility] [address] [place], [address] Potassium [Moles/Vol] 3.0 mmol/L Low 3.3-5.1 [facility] Comment on above: Performed By: #### L 700.6800, L501.2450, L503.6005, L100.0100, L500.4050 ####[facility] [address] [place], [address] Sodium [Moles/Vol] 134 mmol/L Normal 133-145 [facility] Comment on above: Performed By: #### L 700.6800, L501.2450, L503.6005, L100.0100, L500.4050 ####[facility] [address] [place], [address] T PROT 6.9 g/dL Normal 5.9-8.4 [facility] Comment on above: Performed By: #### L 700.6800, L501.2450, L503.6005, L100.0100, L500.4050 ####[facility] [address] [place], [address] Urea nitrogen [Mass/Vol] 16 mg/dL Normal 4-19 [facility] Comment on above: Performed By: #### L 700.6800, L501.2450, L503.6005, L100.0100, L500.4050 ####[facility] [address] [place], [address] Emergency Department Summary on 11-05-2024 Emergency Department Summary Normal [facility] Gallbladderon 11-05-2024 Gallbladder Normal [facility] H AND P Exam - Hospitaliston 11-05-2024 H&P Exam - Hospitalist Normal [facility] L501.6901on 11-05-2024 BETA-HYDROXYBUT 7.1 mmol/L Normal 0.0-0.3 [facility] Comment on above: Performed By: #### L 501.6901 ####[facility] [address] [place], [address] Lactic Acidon 11-05-2024 Lactate [Moles/Vol] mmol/L Normal 0.0-2.0 [facility] Comment on above: Order Comment: Y Performed By: #### L 700.6800, L501.2450, L503.6005, L100.0100, L500.4050 ####[facility] [address] [place], [address] Lipaseon 11-05-2024 Lipase [Catalytic activity/Vol] 13 U/L Normal 13-75 [facility] Comment on above: Result Comment: Sulma schmitz note:LIPASE revised reference range effective 22.New Lipase methodology. Expected to produce lower valuesthan the previous assay method.NEW Reference Range: 13 - 75 U/L Performed By: #### L 700.6800, L501.2450, L503.6005, L100.0100, L500.4050 ####[facility] [address] [place], [address] ,Serum,hCG Quali.on 11-05-2024 HCG, SERUM QUAL Negative Normal [facility] Comment on above: Performed By: #### L 700.6800, L501.2450, L503.6005, L100.0100, L500.4050 ####[facility] [address] [place], [address] Urinalysis, Completeon 11-05 BACTERIA 1+ /hpf Normal None Seen [facility] Comment on above: Order Comment: CLEAN CATCH Performed By: #### L 400.0001 ####[facility] [address] [place], [address] EPI,SQUAMOUS 0-5 SEEN Normal 5-10 [facility] Comment on above: Order Comment: CLEAN CATCH Performed By: #### L 400.0001 ####[facility] [address] [place], [address] WBC 0-5 SEEN Normal 0-5 [facility] Comment on above: Order Comment: CLEAN CATCH Performed By: #### L 400.0001 ####[facility] [address] [place], [address] RBC 0 SEEN Normal 0-5 [facility] Comment on above: Order Comment: CLEAN CATCH Performed By: #### L 400.0001 ####[facility] [address] [place], [address] Mucus Ql (Urine sed) 0 SEEN Normal [facility] Comment on above: Order Comment: CLEAN CATCH Performed By: #### L 400.0001 ####[facility] [address] [place], [address] Venous Blood Gason 5 Blood Gas Type ISABELLE Normal [facility] Comment on above: Performed By: #### L 9000.0810 ####[facility] [address] [place], [address] CO2 [Moles/Vol] 14 mmol/L Low 23-33 [facility] Comment on above: Performed By: #### L 9000.0810 ####[facility] [address] [place], [address] HCO3 (Bld) [Moles/Vol] 14 mmol/L Low 22-26 [facility] Comment on above: Performed By: #### L 9000.0810 ####[facility] [address] [place], [address] O2 Delivery Dev Not entered Normal [facility] Comment on above: Performed By: #### L 9000.0810 ####[facility] [address] [place], [address] SITE Not entered Normal [facility] Comment on above: Performed By: #### L 9000.0810 ####[facility] [address] [place], [address] VBG BE -11 mmol/L Low -1.0-3.5 [facility] Comment on above: Performed By: #### L 9000.0810 ####[facility] [address] [place], [address] VBG pCO2 20.7 mmHg Low 41-51 [facility] Comment on above: Performed By: #### L 9000.0810 ####[facility] [address] [place], [address] VBG pH 7.43 High 7.32-7.42 [facility] Comment on above: Performed By: #### L 9000.0810 ####[facility] [address] [place], [address] VBG PO2 68 mmHg High 25-40 [facility] Comment on above: Performed By: #### L 9000.0810 ####[facility] [address] [place], [address] VBG SO2 95 High 50-70 [facility] Comment on above: Performed By: #### L 9000.0810 ####[facility] [address] [place], [address] L501.6901on 03-10-2025 BETA-HYDROXYBUT 1.5 mmol/L Normal 0.0-0.3 [facility] Comment on above: Performed By: #### L 501.6901 ####[facility] [address] [place], [address] Venous Blood Gason 5 CO2 [Moles/Vol] 20 mmol/L Low 23-33 [facility] Comment on above: Performed By: #### L 9000.0810 ####[facility] [address] [place], [address] HCO3 (Bld) [Moles/Vol] 19 mmol/L Low 22-26 [facility] Comment on above: Performed By: #### L 9000.0810 ####[facility] [address] [place], [address] VBG SO2 94 High 50-70 [facility] Comment on above: Performed By: #### L 9000.0810 ####[facility] [address] [place], [address] Blood Gas Type ISABELLE Normal [facility] Comment on above: Performed By: #### L 9000.0810 ####[facility] [address] [place], [address] VBG pCO2 30.3 mmHg Low 41-51 [facility] Comment on above: Performed By: #### L 9000.0810 ####[facility] [address] [place], [address] VBG pH 7.40 Normal 7.32-7.42 [facility] Comment on above: Performed By: #### L 9000.0810 ####[facility] [address] [place], [address] VBG PO2 71 mmHg High 25-40 [facility] Comment on above: Performed By: #### L 9000.0810 ####[facility] [address] [place], [address] Abdomen/Pelvis W IV Cont ONL Yon 11-03-2024 Abdomen/Pelvis W IV Cont ONLY Normal [facility] CBC W/Diff, Automatedon 03-0 Absolute Lymph 1.92 X10 3/uL Normal 0.83-4.51 [facility] Comment on above: Performed By: #### L 500.4050, L100.0100, L501.2450 ####[facility] [address] [place], [address] Absolute Neut 8.4 X10 3/uL High 2.0-7.7 [facility] Comment on above: Performed By: #### L 500.4050, L100.0100, L501.2450 ####[facility] [address] [place], [address] Basophils/100 WBC (Bld) 0.5 % Normal 0-1 [facility] Comment on above: Performed By: #### L 500.4050, L100.0100, L501.2450 ####[facility] [address] [place], [address] Eosinophils/100 WBC (Bld) 0.3 % Normal 0-5 [facility] Comment on above: Performed By: #### L 500.4050, L100.0100, L501.2450 ####[facility] [address] [place], [address] Erythrocyte distribution width (RBC) [Ratio] 13.2 % Normal 11.6-14.6 [facility] Comment on above: Performed By: #### L 500.4050, L100.0100, L501.2450 ####[facility] [address] [place], [address] Hematocrit (Bld) [Volume fraction] 42.1 % Normal 37-47 [facility] Comment on above: Performed By: #### L 500.4050, L100.0100, L501.2450 ####[facility] [address] [place], [address] Hemoglobin (Bld) [Mass/Vol] 14.2 g/dL Normal 12.0-15.0 [facility] Comment on above: Performed By: #### L 500.4050, L100.0100, L501.2450 ####[facility] [address] [place], [address] IG% 0.800 Normal 0.0-0.9 [facility] Comment on above: Result Comment: IG% - Immature Granulocytes (promyelocytes, myelocytes andmetamyelocytes) > 1% indicates that a LEFT SHIFT is Present. Performed By: #### L 500.4050, L100.0100, L501.2450 ####[facility] [address] [place], [address] Lymphocytes/100 WBC (Bld) 17.5 % Low 19-41 [facility] Comment on above: Performed By: #### L 500.4050, L100.0100, L501.2450 ####[facility] [address] [place], [address] MCH (RBC) [Entitic mass] 29.3 pg Normal 27.0-32.0 [facility] Comment on above: Performed By: #### L 500.4050, L100.0100, L501.2450 ####[facility] [address] [place], [address] MCHC (RBC) [Mass/Vol] 33.7 g/dL Normal 32-36 [facility] Comment on above: Performed By: #### L 500.4050, L100.0100, L501.2450 ####[facility] [address] [place], [address] MCV (RBC) [Entitic vol] 87.0 fL Normal 81-99 [facility] Comment on above: Performed By: #### L 500.4050, L100.0100, L501.2450 ####[facility] [address] [place], [address] Monocytes/100 WBC (Bld) 4.6 % Normal 0-10 [facility] Comment on above: Performed By: #### L 500.4050, L100.0100, L501.2450 ####[facility] [address] [place], [address] Neutrophils/100 WBC (Bld) 76.3 % High 47-70 [facility] Comment on above: Performed By: #### L 500.4050, L100.0100, L501.2450 ####[facility] [address] [place], [address] Nucleated RBC (Bld) [#/Vol] 0 10*3/uL Normal 0-5 [facility] Comment on above: Performed By: #### L 500.4050, L100.0100, L501.2450 ####[facility] [address] [place], [address] Platelet mean volume (Bld) [Entitic vol] 12.4 fL High 6.2-12.0 [facility] Comment on above: Performed By: #### L 500.4050, L100.0100, L501.2450 ####[facility] [address] [place], [address] Platelets (Bld) [#/Vol] 263 10*3/uL Normal 150-450 [facility] Comment on above: Performed By: #### L 500.4050, L100.0100, L501.2450 ####[facility] [address] [place], [address] RBC (Bld) [#/Vol] 4.84 10*6/uL Normal 4.2-5.4 [facility] Comment on above: Performed By: #### L 500.4050, L100.0100, L501.2450 ####[facility] [address] [place], [address] RDW SD 41.6 fl Normal 35.1-43.9 [facility] Comment on above: Performed By: #### L 500.4050, L100.0100, L501.2450 ####[facility] [address] [place], [address] WBC (Bld) [#/Vol] 11.0 10*3/uL Normal 4.4-11.0 [facility] Comment on above: Performed By: #### L 500.4050, L100.0100, L501.2450 ####[facility] [address] [place], [address] Comprehensive Metabolic Prof ilon 11-03-2024 Albumin [Mass/Vol] 4.7 g/dL Normal 3.5-5.0 [facility] Comment on above: Performed By: #### L 500.4050, L100.0100, L501.2450 ####[facility] [address] [place], [address] Albumin/Globulin [Mass ratio] 1.4 {ratio} Normal 0.9-2.4 [facility] Comment on above: Performed By: #### L 500.4050, L100.0100, L501.2450 ####[facility] [address] [place], [address] ALK PHOS 101 U/L Normal 35-104 [facility] Comment on above: Performed By: #### L 500.4050, L100.0100, L501.2450 ####[facility] [address] [place], [address] ALT [Catalytic activity/Vol] 22 U/L Normal <=34 [facility] Comment on above: Performed By: #### L 500.4050, L100.0100, L501.2450 ####[facility] [address] [place], [address] AST [Catalytic activity/Vol] 20 U/L Normal <=31 [facility] Comment on above: Result Comment: Hemo lysis present, Results??could be affected.?? Performed By: #### L 500.4050, L100.0100, L501.2450 ####[facility] [address] [place], [address] Bilirubin [Mass/Vol] 0.98 mg/dL Normal 0.00-1.30 [facility] Comment on above: Performed By: #### L 500.4050, L100.0100, L501.2450 ####[facility] [address] [place], [address] BUN/CRE 17.6 RATIO Normal 10-20 [facility] Comment on above: Performed By: #### L 500.4050, L100.0100, L501.2450 ####[facility] [address] [place], [address] Calcium [Mass/Vol] 9.9 mg/dL Normal 7.6-11.0 [facility] Comment on above: Performed By: #### L 500.4050, L100.0100, L501.2450 ####[facility] [address] [place], [address] Chloride [Moles/Vol] 97 mmol/L Low 98-108 [facility] Comment on above: Performed By: #### L 500.4050, L100.0100, L501.2450 ####[facility] [address] [place], [address] CO2 [Moles/Vol] 18.2 mmol/L Low 21.0-32.0 [facility] Comment on above: Performed By: #### L 500.4050, L100.0100, L501.2450 ####[facility] [address] [place], [address] Creatinine [Mass/Vol] 0.84 mg/dL Normal 0.70-1.20 [facility] Comment on above: Performed By: #### L 500.4050, L100.0100, L501.2450 ####[facility] [address] [place], [address] ECRCL 102.34 ml/min Normal 50-250 [facility] Comment on above: Performed By: #### L 500.4050, L100.0100, L501.2450 ####[facility] [address] [place], [address] GAP 18 High 5-15 [facility] Comment on above: Performed By: #### L 500.4050, L100.0100, L501.2450 ####[facility] [address] [place], [address] GFR/1.73 sq M.predicted among non-blacks MDRD (S/P/Bld) [Vol rate/Area] 96 mL/min/{1.73_m2} Normal >60 [facility] Comment on above: Result Comment: mL/m in/1.73m2 CKD-EPI Creatinine Equation (2020) Performed By: #### L 500.4050, L100.0100, L501.2450 ####[facility] [address] [place], [address] Globulin (S) [Mass/Vol] 3.3 g/dL Normal 2.2-4.2 [facility] Comment on above: Performed By: #### L 500.4050, L100.0100, L501.2450 ####[facility] [address] [place], [address] Glucose [Mass/Vol] 375 mg/dL High 70-99 [facility] Comment on above: Performed By: #### L 500.4050, L100.0100, L501.2450 ####[facility] [address] [place], [address] Potassium [Moles/Vol] 4.4 mmol/L Normal 3.3-5.1 [facility] Comment on above: Result Comment: Hemo lysis present, Results??could be affected.?? Performed By: #### L 500.4050, L100.0100, L501.2450 ####[facility] [address] [place], [address] Sodium [Moles/Vol] 133 mmol/L Normal 133-145 [facility] Comment on above: Performed By: #### L 500.4050, L100.0100, L501.2450 ####[facility] [address] [place], [address] T PROT 7.9 g/dL Normal 5.9-8.4 [facility] Comment on above: Performed By: #### L 500.4050, L100.0100, L501.2450 ####[facility] [address] [place], [address] Urea nitrogen [Mass/Vol] 15 mg/dL Normal 4-19 [facility] Comment on above: Performed By: #### L 500.4050, L100.0100, L501.2450 ####[facility] [address] [place], [address] Emergency Department Summary on 11-03-2024 Emergency Department Summary Normal [facility] Lipaseon 11-03-2024 Lipase [Catalytic activity/Vol] 14 U/L Normal 13-75 [facility] Comment on above: Result Comment: Sulma schmitz note:LIPASE revised reference range effective 22.New Lipase methodology. Expected to produce lower valuesthan the previous assay method.NEW Reference Range: 13 - 75 U/L Performed By: #### L 500.4050, L100.0100, L501.2450 ####[facility] [address] [place], [address] Urinalysis, Completeon 11-03 BACTERIA RARE Normal None Seen [facility] Comment on above: Order Comment: CLEAN CATCH Performed By: #### L 400.0001 ####[facility] [address] [place], [address] EPI,SQUAMOUS 0-5 SEEN Normal 5-10 [facility] Comment on above: Order Comment: CLEAN CATCH Performed By: #### L 400.0001 ####[facility] [address] [place], [address] RBC 0 SEEN Normal 0-5 [facility] Comment on above: Order Comment: CLEAN CATCH Performed By: #### L 400.0001 ####[facility] [address] [place], [address] WBC 0-5 SEEN Normal 0-5 [facility] Comment on above: Order Comment: CLEAN CATCH Performed By: #### L 400.0001 ####[facility] [address] [place], [address] BILIRUBIN URINE Negative Normal Negative [facility] Comment on above: Order Comment: CLEAN CATCH Performed By: #### L 400.0001 ####[facility] [address] [place], [address] Clarity (U) Turbid Normal Clear [facility] Comment on above: Order Comment: CLEAN CATCH Performed By: #### L 400.0001 ####[facility] [address] [place], [address] Color (U) Straw Normal Yellow [facility] Comment on above: Order Comment: CLEAN CATCH Performed By: #### L 400.0001 ####[facility] [address] [place], [address] GLUCOSE, UR 1000 mg/dl Abnormal Normal [facility] Comment on above: Order Comment: CLEAN CATCH Performed By: #### L 400.0001 ####[facility] [address] [place], [address] KETONE UR 50 mg/dl Abnormal Negative [facility] Comment on above: Order Comment: CLEAN CATCH Performed By: #### L 400.0001 ####[facility] [address] [place], [address] LEUK ESTERASE Negative Normal Negative [facility] Comment on above: Order Comment: CLEAN CATCH Performed By: #### L 400.0001 ####[facility] [address] [place], [address] Nitrite Ql (U) Negative Normal Negative [facility] Comment on above: Order Comment: CLEAN CATCH Performed By: #### L 400.0001 ####[facility] [address] [place], [address] OCCULT BLOOD-UR Negative Normal Negative [facility] Comment on above: Order Comment: CLEAN CATCH Performed By: #### L 400.0001 ####[facility] [address] [place], [address] pH UR 6.0 Normal 5.0 - 8.0 [facility] Comment on above: Order Comment: CLEAN CATCH Performed By: #### L 400.0001 ####[facility] [address] [place], [address] PROT DIPSTX Negative Normal Negative [facility] Comment on above: Order Comment: CLEAN CATCH Performed By: #### L 400.0001 ####[facility] [address] [place], [address] SP.GR. DIPSTX 1.015 Normal 1.002-1.030 [facility] Comment on above: Order Comment: CLEAN CATCH Performed By: #### L 400.0001 ####[facility] [address] [place], [address] UROBILI Normal Normal Normal [facility] Comment on above: Order Comment: CLEAN CATCH Performed By: #### L 400.0001 ####[facility] [address] [place], [address] Mucus Ql (Urine sed) 0 SEEN Normal [facility] Comment on above: Order Comment: CLEAN CATCH Performed By: #### L 400.0001 ####[facility] [address] [place], [address] Basic Metabolic Profile (BMP )on 10-27-2024 BUN Normal 7-18 [facility] Comment on above: Result Comment: Canc elled via OM: Order cancelled - Patient discharged Performed By: #### L 100.0100, L500.2500 ####[facility] [address] [place], [address] BUN/CRE Normal 10-20 [facility] Comment on above: Result Comment: Canc elled via OM: Order cancelled - Patient discharged Performed By: #### L 100.0100, L500.2500 ####[facility] [address] [place], [address] CA,Total Normal 8.5-10.1 [facility] Comment on above: Result Comment: Canc elled via OM: Order cancelled - Patient discharged Performed By: #### L 100.0100, L500.2500 ####[facility] [address] [place], [address] CL Normal 98-107 [facility] Comment on above: Result Comment: Canc elled via OM: Order cancelled - Patient discharged Performed By: #### L 100.0100, L500.2500 ####[facility] [address] [place], [address] CO2 Normal 21.0-32.0 [facility] Comment on above: Result Comment: Canc elled via OM: Order cancelled - Patient discharged Performed By: #### L 100.0100, L500.2500 ####[facility] [address] [place], [address] CREAT,SERUM Normal 0.55-1.02 [facility] Comment on above: Result Comment: Canc elled via OM: Order cancelled - Patient discharged Performed By: #### L 100.0100, L500.2500 ####[facility] [address] [place], [address] EST GFR Normal >60 [facility] Comment on above: Result Comment: Canc elled via OM: Order cancelled - Patient discharged Performed By: #### L 100.0100, L500.2500 ####[facility] [address] [place], [address] EST GFR - AA Normal >60 [facility] Comment on above: Result Comment: Canc elled via OM: Order cancelled - Patient discharged Performed By: #### L 100.0100, L500.2500 ####[facility] [address] [place], [address] GAP Normal 5-15 [facility] Comment on above: Result Comment: Canc elled via OM: Order cancelled - Patient discharged Performed By: #### L 100.0100, L500.2500 ####[facility] [address] [place], [address] GLU Normal 74-106 [facility] Comment on above: Result Comment: Canc elled via OM: Order cancelled - Patient discharged Performed By: #### L 100.0100, L500.2500 ####[facility] [address] [place], [address] Potassium Normal 3.5-5.1 [facility] Comment on above: Result Comment: Canc elled via OM: Order cancelled - Patient discharged Performed By: #### L 100.0100, L500.2500 ####[facility] [address] [place], [address] Basic Metabolic Profile (BMP) Normal 136-145 [facility] Comment on above: Result Comment: Canc elled via OM: Order cancelled - Patient discharged Performed By: #### L 100.0100, L500.2500 ####[facility] [address] [place], [address] CBC W/Diff, Automatedon 03-0 Absolute Neut Normal 2.0-7.7 [facility] Comment on above: Result Comment: Canc elled via OM: Order cancelled - Patient discharged Performed By: #### L 100.0100, L500.2500 ####[facility] [address] [place], [address] HCT Normal 37-47 [facility] Comment on above: Result Comment: Canc elled via OM: Order cancelled - Patient discharged Performed By: #### L 100.0100, L500.2500 ####[facility] [address] [place], [address] HGB Normal 12.0-15.0 [facility] Comment on above: Result Comment: Canc elled via OM: Order cancelled - Patient discharged Performed By: #### L 100.0100, L500.2500 ####[facility] [address] [place], [address] MCH Normal 27.0-32.0 [facility] Comment on above: Result Comment: Canc elled via OM: Order cancelled - Patient discharged Performed By: #### L 100.0100, L500.2500 ####[facility] [address] [place], [address] MCHC Normal 32-36 [facility] Comment on above: Result Comment: Canc elled via OM: Order cancelled - Patient discharged Performed By: #### L 100.0100, L500.2500 ####[facility] [address] [place], [address] MCV Normal 81-99 [facility] Comment on above: Result Comment: Canc elled via OM: Order cancelled - Patient discharged Performed By: #### L 100.0100, L500.2500 ####[facility] [address] [place], [address] NEUT% Normal 47-70 [facility] Comment on above: Result Comment: Canc elled via OM: Order cancelled - Patient discharged Performed By: #### L 100.0100, L500.2500 ####[facility] [address] [place], [address] PLT Normal 150-450 [facility] Comment on above: Result Comment: Canc elled via OM: Order cancelled - Patient discharged Performed By: #### L 100.0100, L500.2500 ####[facility] [address] [place], [address] RBC Normal 4.2-5.4 [facility] Comment on above: Result Comment: Canc elled via OM: Order cancelled - Patient discharged Performed By: #### L 100.0100, L500.2500 ####[facility] [address] [place], [address] RDW CV Normal 11.6-14.6 [facility] Comment on above: Result Comment: Canc elled via OM: Order cancelled - Patient discharged Performed By: #### L 100.0100, L500.2500 ####[facility] [address] [place], [address] RDW SD Normal 35.1-43.9 [facility] Comment on above: Result Comment: Canc elled via OM: Order cancelled - Patient discharged Performed By: #### L 100.0100, L500.2500 ####[facility] [address] [place], [address] WBC Normal 4.4-11.0 [facility] Comment on above: Result Comment: Canc elled via OM: Order cancelled - Patient discharged Performed By: #### L 100.0100, L500.2500 ####[facility] [address] [place], [address] Basic Metabolic Profile (BMP )on 10-26-2024 BUN Normal 7-18 [facility] Comment on above: Result Comment: Canc elled via OM: Order cancelled - Patient discharged Performed By: #### L 500.2500, L100.0100 ####[facility] [address] [place], [address] BUN/CRE Normal 10-20 [facility] Comment on above: Result Comment: Canc elled via OM: Order cancelled - Patient discharged Performed By: #### L 500.2500, L100.0100 ####[facility] [address] [place], [address] CA,Total Normal 8.5-10.1 [facility] Comment on above: Result Comment: Canc elled via OM: Order cancelled - Patient discharged Performed By: #### L 500.2500, L100.0100 ####[facility] [address] [place], [address] CL Normal 98-107 [facility] Comment on above: Result Comment: Canc elled via OM: Order cancelled - Patient discharged Performed By: #### L 500.2500, L100.0100 ####[facility] [address] [place], [address] CO2 Normal 21.0-32.0 [facility] Comment on above: Result Comment: Canc elled via OM: Order cancelled - Patient discharged Performed By: #### L 500.2500, L100.0100 ####[facility] [address] [place], [address] CREAT,SERUM Normal 0.55-1.02 [facility] Comment on above: Result Comment: Canc elled via OM: Order cancelled - Patient discharged Performed By: #### L 500.2500, L100.0100 ####[facility] [address] [place], [address] EST GFR Normal >60 [facility] Comment on above: Result Comment: Canc elled via OM: Order cancelled - Patient discharged Performed By: #### L 500.2500, L100.0100 ####[facility] [address] [place], [address] EST GFR - AA Normal >60 [facility] Comment on above: Result Comment: Canc elled via OM: Order cancelled - Patient discharged Performed By: #### L 500.2500, L100.0100 ####[facility] [address] [place], [address] GAP Normal 5-15 [facility] Comment on above: Result Comment: Canc elled via OM: Order cancelled - Patient discharged Performed By: #### L 500.2500, L100.0100 ####[facility] [address] [place], [address] GLU Normal 74-106 [facility] Comment on above: Result Comment: Canc elled via OM: Order cancelled - Patient discharged Performed By: #### L 500.2500, L100.0100 ####[facility] [address] [place], [address] Potassium Normal 3.5-5.1 [facility] Comment on above: Result Comment: Canc elled via OM: Order cancelled - Patient discharged Performed By: #### L 500.2500, L100.0100 ####[facility] [address] [place], [address] Basic Metabolic Profile (BMP) Normal 136-145 [facility] Comment on above: Result Comment: Canc elled via OM: Order cancelled - Patient discharged Performed By: #### L 500.2500, L100.0100 ####[facility] [address] [place], [address] CBC W/Diff, Automatedon 03-0 Absolute Neut Normal 2.0-7.7 [facility] Comment on above: Result Comment: Canc elled via OM: Order cancelled - Patient discharged Performed By: #### L 500.2500, L100.0100 ####[facility] [address] [place], [address] HCT Normal 37-47 [facility] Comment on above: Result Comment: Canc elled via OM: Order cancelled - Patient discharged Performed By: #### L 500.2500, L100.0100 ####[facility] [address] [place], [address] HGB Normal 12.0-15.0 [facility] Comment on above: Result Comment: Canc elled via OM: Order cancelled - Patient discharged Performed By: #### L 500.2500, L100.0100 ####[facility] [address] [place], [address] MCH Normal 27.0-32.0 [facility] Comment on above: Result Comment: Canc elled via OM: Order cancelled - Patient discharged Performed By: #### L 500.2500, L100.0100 ####[facility] [address] [place], [address] MCHC Normal 32-36 [facility] Comment on above: Result Comment: Canc elled via OM: Order cancelled - Patient discharged Performed By: #### L 500.2500, L100.0100 ####[facility] [address] [place], [address] MCV Normal 81-99 [facility] Comment on above: Result Comment: Canc elled via OM: Order cancelled - Patient discharged Performed By: #### L 500.2500, L100.0100 ####[facility] [address] [place], [address] NEUT% Normal 47-70 [facility] Comment on above: Result Comment: Canc elled via OM: Order cancelled - Patient discharged Performed By: #### L 500.2500, L100.0100 ####[facility] [address] [place], [address] PLT Normal 150-450 [facility] Comment on above: Result Comment: Canc elled via OM: Order cancelled - Patient discharged Performed By: #### L 500.2500, L100.0100 ####[facility] [address] [place], [address] RBC Normal 4.2-5.4 [facility] Comment on above: Result Comment: Canc elled via OM: Order cancelled - Patient discharged Performed By: #### L 500.2500, L100.0100 ####[facility] [address] [place], [address] RDW CV Normal 11.6-14.6 [facility] Comment on above: Result Comment: Canc elled via OM: Order cancelled - Patient discharged Performed By: #### L 500.2500, L100.0100 ####[facility] [address] [place], [address] RDW SD Normal 35.1-43.9 [facility] Comment on above: Result Comment: Canc elled via OM: Order cancelled - Patient discharged Performed By: #### L 500.2500, L100.0100 ####[facility] [address] [place], [address] WBC Normal 4.4-11.0 [facility] Comment on above: Result Comment: Canc elled via OM: Order cancelled - Patient discharged Performed By: #### L 500.2500, L100.0100 ####[facility] [address] [place], [address] Basic Metabolic Profile (BMP )on 10-25-2024 BUN Normal 7-18 [facility] Comment on above: Result Comment: Canc elled via OM: Order cancelled - Patient discharged Performed By: #### L 500.2500, L100.0100 ####[facility] [address] [place], [address] BUN/CRE Normal 10-20 [facility] Comment on above: Result Comment: Canc elled via OM: Order cancelled - Patient discharged Performed By: #### L 500.2500, L100.0100 ####[facility] [address] [place], [address] CA,Total Normal 8.5-10.1 [facility] Comment on above: Result Comment: Canc elled via OM: Order cancelled - Patient discharged Performed By: #### L 500.2500, L100.0100 ####[facility] [address] [place], [address] CL Normal 98-107 [facility] Comment on above: Result Comment: Canc elled via OM: Order cancelled - Patient discharged Performed By: #### L 500.2500, L100.0100 ####[facility] [address] [place], [address] CO2 Normal 21.0-32.0 [facility] Comment on above: Result Comment: Canc elled via OM: Order cancelled - Patient discharged Performed By: #### L 500.2500, L100.0100 ####[facility] [address] [place], [address] CREAT,SERUM Normal 0.55-1.02 [facility] Comment on above: Result Comment: Canc elled via OM: Order cancelled - Patient discharged Performed By: #### L 500.2500, L100.0100 ####[facility] [address] [place], [address] EST GFR Normal >60 [facility] Comment on above: Result Comment: Canc elled via OM: Order cancelled - Patient discharged Performed By: #### L 500.2500, L100.0100 ####[facility] [address] [place], [address] EST GFR - AA Normal >60 [facility] Comment on above: Result Comment: Canc elled via OM: Order cancelled - Patient discharged Performed By: #### L 500.2500, L100.0100 ####[facility] [address] [place], [address] GAP Normal 5-15 [facility] Comment on above: Result Comment: Canc elled via OM: Order cancelled - Patient discharged Performed By: #### L 500.2500, L100.0100 ####[facility] [address] [place], [address] GLU Normal 74-106 [facility] Comment on above: Result Comment: Canc elled via OM: Order cancelled - Patient discharged Performed By: #### L 500.2500, L100.0100 ####[facility] [address] [place], [address] Potassium Normal 3.5-5.1 [facility] Comment on above: Result Comment: Canc elled via OM: Order cancelled - Patient discharged Performed By: #### L 500.2500, L100.0100 ####[facility] [address] [place], [address] Basic Metabolic Profile (BMP) Normal 136-145 [facility] Comment on above: Result Comment: Canc elled via OM: Order cancelled - Patient discharged Performed By: #### L 500.2500, L100.0100 ####[facility] [address] [place], [address] CBC W/Diff, Automatedon 02- Absolute Neut Normal 2.0-7.7 [facility] Comment on above: Result Comment: Canc elled via OM: Order cancelled - Patient discharged Performed By: #### L 500.2500, L100.0100 ####[facility] [address] [place], [address] HCT Normal 37-47 [facility] Comment on above: Result Comment: Canc elled via OM: Order cancelled - Patient discharged Performed By: #### L 500.2500, L100.0100 ####[facility] [address] [place], [address] HGB Normal 12.0-15.0 [facility] Comment on above: Result Comment: Canc elled via OM: Order cancelled - Patient discharged Performed By: #### L 500.2500, L100.0100 ####[facility] [address] [place], [address] MCH Normal 27.0-32.0 [facility] Comment on above: Result Comment: Canc elled via OM: Order cancelled - Patient discharged Performed By: #### L 500.2500, L100.0100 ####[facility] [address] [place], [address] MCHC Normal 32-36 [facility] Comment on above: Result Comment: Canc elled via OM: Order cancelled - Patient discharged Performed By: #### L 500.2500, L100.0100 ####[facility] [address] [place], [address] MCV Normal 81-99 [facility] Comment on above: Result Comment: Canc elled via OM: Order cancelled - Patient discharged Performed By: #### L 500.2500, L100.0100 ####[facility] [address] [place], [address] NEUT% Normal 47-70 [facility] Comment on above: Result Comment: Canc elled via OM: Order cancelled - Patient discharged Performed By: #### L 500.2500, L100.0100 ####[facility] [address] [place], [address] PLT Normal 150-450 [facility] Comment on above: Result Comment: Canc elled via OM: Order cancelled - Patient discharged Performed By: #### L 500.2500, L100.0100 ####[facility] [address] [place], [address] RBC Normal 4.2-5.4 [facility] Comment on above: Result Comment: Canc elled via OM: Order cancelled - Patient discharged Performed By: #### L 500.2500, L100.0100 ####[facility] [address] [place], [address] RDW CV Normal 11.6-14.6 [facility] Comment on above: Result Comment: Canc elled via OM: Order cancelled - Patient discharged Performed By: #### L 500.2500, L100.0100 ####[facility] [address] [place], [address] RDW SD Normal 35.1-43.9 [facility] Comment on above: Result Comment: Canc elled via OM: Order cancelled - Patient discharged Performed By: #### L 500.2500, L100.0100 ####[facility] [address] [place], [address] WBC Normal 4.4-11.0 [facility] Comment on above: Result Comment: Canc elled via OM: Order cancelled - Patient discharged Performed By: #### L 500.2500, L100.0100 ####[facility] [address] [place], [address] Basic Metabolic Profile (BMP )on 10-24-2024 BUN Normal 7-18 [facility] Comment on above: Result Comment: Canc elled via OM: Order cancelled - Patient discharged Performed By: #### L 100.0100, L500.2500 ####[facility] [address] [place], [address] BUN/CRE Normal 10-20 [facility] Comment on above: Result Comment: Canc elled via OM: Order cancelled - Patient discharged Performed By: #### L 100.0100, L500.2500 ####[facility] [address] [place], [address] CA,Total Normal 8.5-10.1 [facility] Comment on above: Result Comment: Canc elled via OM: Order cancelled - Patient discharged Performed By: #### L 100.0100, L500.2500 ####[facility] [address] [place], [address] CL Normal 98-107 [facility] Comment on above: Result Comment: Canc elled via OM: Order cancelled - Patient discharged Performed By: #### L 100.0100, L500.2500 ####[facility] [address] [place], [address] CO2 Normal 21.0-32.0 [facility] Comment on above: Result Comment: Canc elled via OM: Order cancelled - Patient discharged Performed By: #### L 100.0100, L500.2500 ####[facility] [address] [place], [address] CREAT,SERUM Normal 0.55-1.02 [facility] Comment on above: Result Comment: Canc elled via OM: Order cancelled - Patient discharged Performed By: #### L 100.0100, L500.2500 ####[facility] [address] [place], [address] EST GFR Normal >60 [facility] Comment on above: Result Comment: Canc elled via OM: Order cancelled - Patient discharged Performed By: #### L 100.0100, L500.2500 ####[facility] [address] [place], [address] EST GFR - AA Normal >60 [facility] Comment on above: Result Comment: Canc elled via OM: Order cancelled - Patient discharged Performed By: #### L 100.0100, L500.2500 ####[facility] [address] [place], [address] GAP Normal 5-15 [facility] Comment on above: Result Comment: Canc elled via OM: Order cancelled - Patient discharged Performed By: #### L 100.0100, L500.2500 ####[facility] [address] [place], [address] GLU Normal 74-106 [facility] Comment on above: Result Comment: Canc elled via OM: Order cancelled - Patient discharged Performed By: #### L 100.0100, L500.2500 ####[facility] [address] [place], [address] Potassium Normal 3.5-5.1 [facility] Comment on above: Result Comment: Canc elled via OM: Order cancelled - Patient discharged Performed By: #### L 100.0100, L500.2500 ####[facility] [address] [place], [address] Basic Metabolic Profile (BMP) Normal 136-145 [facility] Comment on above: Result Comment: Canc elled via OM: Order cancelled - Patient discharged Performed By: #### L 100.0100, L500.2500 ####[facility] [address] [place], [address] CBC W/Diff, Automatedon 02-2 Absolute Neut Normal 2.0-7.7 [facility] Comment on above: Result Comment: Canc elled via OM: Order cancelled - Patient discharged Performed By: #### L 100.0100, L500.2500 ####[facility] [address] [place], [address] HCT Normal 37-47 [facility] Comment on above: Result Comment: Canc elled via OM: Order cancelled - Patient discharged Performed By: #### L 100.0100, L500.2500 ####[facility] [address] [place], [address] HGB Normal 12.0-15.0 [facility] Comment on above: Result Comment: Canc elled via OM: Order cancelled - Patient discharged Performed By: #### L 100.0100, L500.2500 ####[facility] [address] [place], [address] MCH Normal 27.0-32.0 [facility] Comment on above: Result Comment: Canc elled via OM: Order cancelled - Patient discharged Performed By: #### L 100.0100, L500.2500 ####[facility] [address] [place], [address] MCHC Normal 32-36 [facility] Comment on above: Result Comment: Canc elled via OM: Order cancelled - Patient discharged Performed By: #### L 100.0100, L500.2500 ####[facility] [address] [place], [address] MCV Normal 81-99 [facility] Comment on above: Result Comment: Canc elled via OM: Order cancelled - Patient discharged Performed By: #### L 100.0100, L500.2500 ####[facility] [address] [place], [address] NEUT% Normal 47-70 [facility] Comment on above: Result Comment: Canc elled via OM: Order cancelled - Patient discharged Performed By: #### L 100.0100, L500.2500 ####[facility] [address] [place], [address] PLT Normal 150-450 [facility] Comment on above: Result Comment: Canc elled via OM: Order cancelled - Patient discharged Performed By: #### L 100.0100, L500.2500 ####[facility] [address] [place], [address] RBC Normal 4.2-5.4 [facility] Comment on above: Result Comment: Canc elled via OM: Order cancelled - Patient discharged Performed By: #### L 100.0100, L500.2500 ####[facility] [address] [place], [address] RDW CV Normal 11.6-14.6 [facility] Comment on above: Result Comment: Canc elled via OM: Order cancelled - Patient discharged Performed By: #### L 100.0100, L500.2500 ####[facility] [address] [place], [address] RDW SD Normal 35.1-43.9 [facility] Comment on above: Result Comment: Canc elled via OM: Order cancelled - Patient discharged Performed By: #### L 100.0100, L500.2500 ####[facility] [address] [place], [address] WBC Normal 4.4-11.0 [facility] Comment on above: Result Comment: Canc elled via OM: Order cancelled - Patient discharged Performed By: #### L 100.0100, L500.2500 ####[facility] [address] [place], [address] Basic Metabolic Profile (BMP )on 10-23-2024 BUN Normal 7-18 [facility] Comment on above: Result Comment: Canc elled via OM: Order cancelled - Patient discharged Performed By: #### L 100.0100, L500.2500 ####[facility] [address] [place], [address] BUN/CRE Normal 10-20 [facility] Comment on above: Result Comment: Canc elled via OM: Order cancelled - Patient discharged Performed By: #### L 100.0100, L500.2500 ####[facility] [address] [place], [address] CA,Total Normal 8.5-10.1 [facility] Comment on above: Result Comment: Canc elled via OM: Order cancelled - Patient discharged Performed By: #### L 100.0100, L500.2500 ####[facility] [address] [place], [address] CL Normal 98-107 [facility] Comment on above: Result Comment: Canc elled via OM: Order cancelled - Patient discharged Performed By: #### L 100.0100, L500.2500 ####[facility] [address] [place], [address] CO2 Normal 21.0-32.0 [facility] Comment on above: Result Comment: Canc elled via OM: Order cancelled - Patient discharged Performed By: #### L 100.0100, L500.2500 ####[facility] [address] [place], [address] CREAT,SERUM Normal 0.55-1.02 [facility] Comment on above: Result Comment: Canc elled via OM: Order cancelled - Patient discharged Performed By: #### L 100.0100, L500.2500 ####[facility] [address] [place], [address] EST GFR Normal >60 [facility] Comment on above: Result Comment: Canc elled via OM: Order cancelled - Patient discharged Performed By: #### L 100.0100, L500.2500 ####[facility] [address] [place], [address] EST GFR - AA Normal >60 [facility] Comment on above: Result Comment: Canc elled via OM: Order cancelled - Patient discharged Performed By: #### L 100.0100, L500.2500 ####[facility] [address] [place], [address] GAP Normal 5-15 [facility] Comment on above: Result Comment: Canc elled via OM: Order cancelled - Patient discharged Performed By: #### L 100.0100, L500.2500 ####[facility] [address] [place], [address] GLU Normal 74-106 [facility] Comment on above: Result Comment: Canc elled via OM: Order cancelled - Patient discharged Performed By: #### L 100.0100, L500.2500 ####[facility] [address] [place], [address] Potassium Normal 3.5-5.1 [facility] Comment on above: Result Comment: Canc elled via OM: Order cancelled - Patient discharged Performed By: #### L 100.0100, L500.2500 ####[facility] [address] [place], [address] Basic Metabolic Profile (BMP) Normal 136-145 [facility] Comment on above: Result Comment: Canc elled via OM: Order cancelled - Patient discharged Performed By: #### L 100.0100, L500.2500 ####[facility] [address] [place], [address] CBC W/Diff, Automatedon 02-2 Absolute Neut Normal 2.0-7.7 [facility] Comment on above: Result Comment: Canc elled via OM: Order cancelled - Patient discharged Performed By: #### L 100.0100, L500.2500 ####[facility] [address] [place], [address] HCT Normal 37-47 [facility] Comment on above: Result Comment: Canc elled via OM: Order cancelled - Patient discharged Performed By: #### L 100.0100, L500.2500 ####[facility] [address] [place], [address] HGB Normal 12.0-15.0 [facility] Comment on above: Result Comment: Canc elled via OM: Order cancelled - Patient discharged Performed By: #### L 100.0100, L500.2500 ####[facility] [address] [place], [address] MCH Normal 27.0-32.0 [facility] Comment on above: Result Comment: Canc elled via OM: Order cancelled - Patient discharged Performed By: #### L 100.0100, L500.2500 ####[facility] [address] [place], [address] MCHC Normal 32-36 [facility] Comment on above: Result Comment: Canc elled via OM: Order cancelled - Patient discharged Performed By: #### L 100.0100, L500.2500 ####[facility] [address] [place], [address] MCV Normal 81-99 [facility] Comment on above: Result Comment: Canc elled via OM: Order cancelled - Patient discharged Performed By: #### L 100.0100, L500.2500 ####[facility] [address] [place], [address] NEUT% Normal 47-70 [facility] Comment on above: Result Comment: Canc elled via OM: Order cancelled - Patient discharged Performed By: #### L 100.0100, L500.2500 ####[facility] [address] [place], [address] PLT Normal 150-450 [facility] Comment on above: Result Comment: Canc elled via OM: Order cancelled - Patient discharged Performed By: #### L 100.0100, L500.2500 ####[facility] [address] [place], [address] RBC Normal 4.2-5.4 [facility] Comment on above: Result Comment: Canc elled via OM: Order cancelled - Patient discharged Performed By: #### L 100.0100, L500.2500 ####[facility] [address] [place], [address] RDW CV Normal 11.6-14.6 [facility] Comment on above: Result Comment: Canc elled via OM: Order cancelled - Patient discharged Performed By: #### L 100.0100, L500.2500 ####[facility] [address] [place], [address] RDW SD Normal 35.1-43.9 [facility] Comment on above: Result Comment: Canc elled via OM: Order cancelled - Patient discharged Performed By: #### L 100.0100, L500.2500 ####[facility] [address] [place], [address] WBC Normal 4.4-11.0 [facility] Comment on above: Result Comment: Canc elled via OM: Order cancelled - Patient discharged Performed By: #### L 100.0100, L500.2500 ####[facility] [address] [place], [address] Basic Metabolic Profile (BMP )on 10-22-2024 BUN Normal 7-18 [facility] Comment on above: Result Comment: Canc elled via OM: Order cancelled - Patient discharged Performed By: #### L 100.0100, L500.2500 ####[facility] [address] [place], [address] BUN/CRE Normal 10-20 [facility] Comment on above: Result Comment: Canc elled via OM: Order cancelled - Patient discharged Performed By: #### L 100.0100, L500.2500 ####[facility] [address] [place], [address] CA,Total Normal 8.5-10.1 [facility] Comment on above: Result Comment: Canc elled via OM: Order cancelled - Patient discharged Performed By: #### L 100.0100, L500.2500 ####[facility] [address] [facility] [address] CL Normal 98-107 [facility] Comment on above: Result Comment: Canc elled via OM: Order cancelled - Patient discharged Performed By: #### L 100.0100, L500.2500 ####[facility] [address] [facility] [address] CO2 Normal 21.0-32.0 [facility] Comment on above: Result Comment: Canc elled via OM: Order cancelled - Patient discharged Performed By: #### L 100.0100, L500.2500 ####[facility] [address] [place], [address] CREAT,SERUM Normal 0.55-1.02 [facility] Comment on above: Result Comment: Canc elled via OM: Order cancelled - Patient discharged Performed By: #### L 100.0100, L500.2500 ####[facility] [address] [facility] [address] EST GFR Normal >60 [facility] Comment on above: Result Comment: Canc elled via OM: Order cancelled - Patient discharged Performed By: #### L 100.0100, L500.2500 ####[facility] [address] [place], [address] EST GFR - AA Normal >60 [facility] Comment on above: Result Comment: Canc elled via OM: Order cancelled - Patient discharged Performed By: #### L 100.0100, L500.2500 ####[facility] [address] [place], [address] GAP Normal 5-15 [facility] Comment on above: Result Comment: Canc elled via OM: Order cancelled - Patient discharged Performed By: #### L 100.0100, L500.2500 ####[facility] [address] [place], [address] GLU Normal 74-106 [facility] Comment on above: Result Comment: Canc elled via OM: Order cancelled - Patient discharged Performed By: #### L 100.0100, L500.2500 ####[facility] [address] [place], [address] Potassium Normal 3.5-5.1 [facility] Comment on above: Result Comment: Canc elled via OM: Order cancelled - Patient discharged Performed By: #### L 100.0100, L500.2500 ####[facility] [address] [place], [address] Basic Metabolic Profile (BMP) Normal 136-145 [facility] Comment on above: Result Comment: Canc elled via OM: Order cancelled - Patient discharged Performed By: #### L 100.0100, L500.2500 ####[facility] [address] [place], [address] CBC W/Diff, Automatedon 02-2 Absolute Neut Normal 2.0-7.7 [facility] Comment on above: Result Comment: Canc elled via OM: Order cancelled - Patient discharged Performed By: #### L 100.0100, L500.2500 ####[facility] [address] [place], [address] HCT Normal 37-47 [facility] Comment on above: Result Comment: Canc elled via OM: Order cancelled - Patient discharged Performed By: #### L 100.0100, L500.2500 ####[facility] [address] [place], [address] HGB Normal 12.0-15.0 [facility] Comment on above: Result Comment: Canc elled via OM: Order cancelled - Patient discharged Performed By: #### L 100.0100, L500.2500 ####[facility] [address] [place], [address] MCH Normal 27.0-32.0 [facility] Comment on above: Result Comment: Canc elled via OM: Order cancelled - Patient discharged Performed By: #### L 100.0100, L500.2500 ####[facility] [address] [place], [address] MCHC Normal 32-36 [facility] Comment on above: Result Comment: Canc elled via OM: Order cancelled - Patient discharged Performed By: #### L 100.0100, L500.2500 ####[facility] [address] [place], [address] MCV Normal 81-99 [facility] Comment on above: Result Comment: Canc elled via OM: Order cancelled - Patient discharged Performed By: #### L 100.0100, L500.2500 ####[facility] [address] [place], [address] NEUT% Normal 47-70 [facility] Comment on above: Result Comment: Canc elled via OM: Order cancelled - Patient discharged Performed By: #### L 100.0100, L500.2500 ####[facility] [address] [place], [address] PLT Normal 150-450 [facility] Comment on above: Result Comment: Canc elled via OM: Order cancelled - Patient discharged Performed By: #### L 100.0100, L500.2500 ####[facility] [address] [place], [address] RBC Normal 4.2-5.4 [facility] Comment on above: Result Comment: Canc elled via OM: Order cancelled - Patient discharged Performed By: #### L 100.0100, L500.2500 ####[facility] [address] [place], [address] RDW CV Normal 11.6-14.6 [facility] Comment on above: Result Comment: Canc elled via OM: Order cancelled - Patient discharged Performed By: #### L 100.0100, L500.2500 ####[facility] [address] [place], [address] RDW SD Normal 35.1-43.9 [facility] Comment on above: Result Comment: Canc elled via OM: Order cancelled - Patient discharged Performed By: #### L 100.0100, L500.2500 ####[facility] [address] [place], [address] WBC Normal 4.4-11.0 [facility] Comment on above: Result Comment: Canc elled via OM: Order cancelled - Patient discharged Performed By: #### L 100.0100, L500.2500 ####[facility] [address] [place], [address] Basic Metabolic Profile (BMP )on 10-21-2024 BUN/CRE 17.1 RATIO Normal 10-20 [facility] Comment on above: Performed By: #### L 100.0100, L500.2500 ####[facility] [address] [place], [address] CA,Total 9.4 mg/dL Normal 8.5-10.1 [facility] Comment on above: Performed By: #### L 100.0100, L500.2500 ####[facility] [address] [place], [address] Chloride [Moles/Vol] 97 mmol/L Low 98-107 [facility] Comment on above: Performed By: #### L 100.0100, L500.2500 ####[facility] [address] [place], [address] CO2 [Moles/Vol] 16.0 mmol/L Low 21.0-32.0 [facility] Comment on above: Performed By: #### L 100.0100, L500.2500 ####[facility] [address] [place], [address] Creatinine [Mass/Vol] 0.88 mg/dL Normal 0.55-1.02 [facility] Comment on above: Result Comment: The validity of the calculated GFR GFRAA in patients over70 years has not been determined. Clinical correlation isessential. Performed By: #### L 100.0100, L500.2500 ####[facility] [address] [place], [address] ECRCL 97.69 ml/min Normal [facility] Comment on above: Performed By: #### L 100.0100, L500.2500 ####[facility] [address] [place], [address] EST GFR - AA 97 mL/min Normal >60 [facility] Comment on above: Result Comment: Afri can Brazilian GFR Calc Performed By: #### L 100.0100, L500.2500 ####[facility] [address] [place], [address] GAP 15 Normal 5-15 [facility] Comment on above: Performed By: #### L 100.0100, L500.2500 ####[facility] [address] [place], [address] GFR/1.73 sq M.predicted among non-blacks MDRD (S/P/Bld) [Vol rate/Area] 80 mL/min/{1.73_m2} Normal >60 [facility] Comment on above: Result Comment: Non- GFR Calc Performed By: #### L 100.0100, L500.2500 ####[facility] [address] [place], [address] Glucose [Mass/Vol] 546 mg/dL Invalid Interpretation Code 74-106 [facility] Comment on above: Result Comment: Crit ical Result(s) Called at: 05:07:31 10/21/2024 by:Nan Friedman to [place]. Results read back by same.Glucose result greater than or equal to 200 mg/dLsuggests DIABETES MELLITUS per A.D.A. criteria. Performed By: #### L 100.0100, L500.2500 ####[facility] [address] [place], [address] Potassium [Moles/Vol] 5.3 mmol/L High 3.5-5.1 [facility] Comment on above: Performed By: #### L 100.0100, L500.2500 ####[facility] [address] [place], [address] Sodium [Moles/Vol] 128 mmol/L Low 136-145 [facility] Comment on above: Performed By: #### L 100.0100, L500.2500 ####[facility] [address] [place], [address] Urea nitrogen [Mass/Vol] 15 mg/dL Normal 7-18 [facility] Comment on above: Performed By: #### L 100.0100, L500.2500 ####[facility] [address] [place], [address] Bedside Glucoseon 10-21-2024 FINGERSTICK GLU 296 mg/dL High -[address] [place] [address] Comment on above: Result Comment: EDGAR ANTOINETTEENT OF PATIENT CARE PER NURSING PROTOCOL Performed By: #### L 501.080 ####[facility] [address] [place], [address] FINGERSTICK GLU 187 mg/dL High [address] [place] [address] Comment on above: Result Comment: EDGAR GEMENT OF PATIENT CARE PER NURSING PROTOCOL Performed By: #### L 501.080 ####[facility] [address] [place], [address] FINGERSTICK GLU 408 mg/dL High 74-106 [facility] Comment on above: Result Comment: EDGAR GEMENT OF PATIENT CARE PER NURSING PROTOCOL Performed By: #### L 501.080 ####[facility] [address] [place], [address] FINGERSTICK GLU 481 mg/dL Invalid Interpretation Code 74-106 [facility] Comment on above: Result Comment: Repe at TestMANAGEMENT OF PATIENT CARE PER NURSING PROTOCOL Performed By: #### L 501.080 ####[facility] [address] [place], [address] CBC W/Diff, Automatedon 09-29 Absolute Lymph 2.01 X10 3/uL Normal 0.83-4.51 [facility] Comment on above: Performed By: #### L 100.0100, L500.2500 ####[facility] [address] [place], [address] Absolute Neut 13.3 X10 3/uL High 2.0-7.7 [facility] Comment on above: Performed By: #### L 100.0100, L500.2500 ####[facility] [address] [place], [address] Basophils/100 WBC (Bld) 0.5 % Normal 0-1 [facility] Comment on above: Performed By: #### L 100.0100, L500.2500 ####[facility] [address] [place], [address] Eosinophils/100 WBC (Bld) 1.8 % Normal 0-5 [facility] Comment on above: Performed By: #### L 100.0100, L500.2500 ####[facility] [address] [place], [address] Erythrocyte distribution width (RBC) [Ratio] 12.9 % Normal 11.6-14.6 [facility] Comment on above: Performed By: #### L 100.0100, L500.2500 ####[facility] [address] [place], [address] Hematocrit (Bld) [Volume fraction] 44.3 % Normal 37-47 [facility] Comment on above: Performed By: #### L 100.0100, L500.2500 ####[facility] [address] [place], [address] Hemoglobin (Bld) [Mass/Vol] 14.3 g/dL Normal 12.0-15.0 [facility] Comment on above: Performed By: #### L 100.0100, L500.2500 ####[facility] [address] [place], [address] IG% 0.800 Normal 0.0-0.9 [facility] Comment on above: Result Comment: IG% - Immature Granulocytes (promyelocytes, myelocytes andmetamyelocytes) > 1% indicates that a LEFT SHIFT is Present. Performed By: #### L 100.0100, L500.2500 ####[facility] [address] [place], [address] Lymphocytes/100 WBC (Bld) 12.2 % Low 19-41 [facility] Comment on above: Performed By: #### L 100.0100, L500.2500 ####[facility] [address] [place], [address] MCH (RBC) [Entitic mass] 28.8 pg Normal 27.0-32.0 [facility] Comment on above: Performed By: #### L 100.0100, L500.2500 ####[facility] [address] [place], [address] MCHC (RBC) [Mass/Vol] 32.3 g/dL Normal 32-36 [facility] Comment on above: Performed By: #### L 100.0100, L500.2500 ####[facility] [address] [place], [address] MCV (RBC) [Entitic vol] 89.1 fL Normal 81-99 [facility] Comment on above: Performed By: #### L 100.0100, L500.2500 ####[facility] [address] [place], [address] Monocytes/100 WBC (Bld) 4.3 % Normal 0-10 [facility] Comment on above: Performed By: #### L 100.0100, L500.2500 ####[facility] [address] [place], [address] Neutrophils/100 WBC (Bld) 80.4 % High 47-70 [facility] Comment on above: Performed By: #### L 100.0100, L500.2500 ####[facility] [address] [place], [address] Nucleated RBC (Bld) [#/Vol] 0 10*3/uL Normal 0-5 [facility] Comment on above: Performed By: #### L 100.0100, L500.2500 ####[facility] [address] [place], [address] Platelet mean volume (Bld) [Entitic vol] 12.6 fL High 6.2-12.0 [facility] Comment on above: Performed By: #### L 100.0100, L500.2500 ####[facility] [address] [place], [address] Platelets (Bld) [#/Vol] 192 10*3/uL Normal 150-450 [facility] Comment on above: Performed By: #### L 100.0100, L500.2500 ####[facility] [address] [place], [address] RBC (Bld) [#/Vol] 4.97 10*6/uL Normal 4.2-5.4 [facility] Comment on above: Performed By: #### L 100.0100, L500.2500 ####[facility] [address] [place], [address] RDW SD 41.7 fl Normal 35.1-43.9 [facility] Comment on above: Performed By: #### L 100.0100, L500.2500 ####[facility] [address] [place], [address] WBC (Bld) [#/Vol] 16.5 10*3/uL High 4.4-11.0 [facility] Comment on above: Performed By: #### L 100.0100, L500.2500 ####[facility] [address] [place], [address] Discharge Instructionon 09-29 Discharge Instruction Normal [facility] Basic Metabolic Profile (BMP )on 10-20-2024 BUN/CRE 13.2 RATIO Normal 10-20 [facility] Comment on above: Performed By: #### L 100.0100, L500.2500 ####[facility] [address] [place], [address] CA,Total 8.8 mg/dL Normal 8.5-10.1 [facility] Comment on above: Performed By: #### L 100.0100, L500.2500 ####[facility] [address] [place], [address] Chloride [Moles/Vol] 104 mmol/L Normal 98-107 [facility] Comment on above: Performed By: #### L 100.0100, L500.2500 ####[facility] [address] [place], [address] CO2 [Moles/Vol] 22.0 mmol/L Normal 21.0-32.0 [facility] Comment on above: Performed By: #### L 100.0100, L500.2500 ####[facility] [address] [place], [address] Creatinine [Mass/Vol] 0.61 mg/dL Normal 0.55-1.02 [facility] Comment on above: Result Comment: The validity of the calculated GFR GFRAA in patients over70 years has not been determined. Clinical correlation isessential. Performed By: #### L 100.0100, L500.2500 ####[facility] [address] [place], [address] ECRCL 140.93 ml/min Normal [facility] Comment on above: Performed By: #### L 100.0100, L500.2500 ####[facility] [address] [place], [address] EST GFR - AA 149 mL/min Normal >60 [facility] Comment on above: Result Comment: Afri can Brazilian GFR Calc Performed By: #### L 100.0100, L500.2500 ####[facility] [address] [place], [address] GAP 8 Normal 5-15 [facility] Comment on above: Performed By: #### L 100.0100, L500.2500 ####[facility] [address] [place], [address] GFR/1.73 sq M.predicted among non-blacks MDRD (S/P/Bld) [Vol rate/Area] 123 mL/min/{1.73_m2} Normal >60 [facility] Comment on above: Result Comment: Non- GFR Calc Performed By: #### L 100.0100, L500.2500 ####[facility] [address] [place], [address] Glucose [Mass/Vol] 222 mg/dL High 74-106 [facility] Comment on above: Result Comment: Gluc ose result greater than or equal to 200 mg/dLsuggests DIABETES MELLITUS per A.D.A. criteria. Performed By: #### L 100.0100, L500.2500 ####[facility] [address] [place], [address] Potassium [Moles/Vol] 4.2 mmol/L Normal 3.5-5.1 [facility] Comment on above: Performed By: #### L 100.0100, L500.2500 ####[facility] [address] [place], [address] Sodium [Moles/Vol] 134 mmol/L Low 136-145 [facility] Comment on above: Performed By: #### L 100.0100, L500.2500 ####[facility] [address] [place], [address] Urea nitrogen [Mass/Vol] 8 mg/dL Normal 7-18 [facility] Comment on above: Performed By: #### L 100.0100, L500.2500 ####[facility] [address] [place], [address] Bedside Glucoseon 10-20-2024 FINGERSTICK GLU 94 mg/dL Normal 74-106 [facility] Comment on above: Result Comment: EDGAR GEMENT OF PATIENT CARE PER NURSING PROTOCOL Performed By: #### L 501.080 ####[facility] [address] [place], [address] FINGERSTICK GLU 337 mg/dL High 74-106 [facility] Comment on above: Result Comment: EDGAR GEMENT OF PATIENT CARE PER NURSING PROTOCOL Performed By: #### L 501.080 ####[facility] [address] [place], [address] FINGERSTICK GLU 441 mg/dL High 74-106 [facility] Comment on above: Result Comment: EDGAR GEMENT OF PATIENT CARE PER NURSING PROTOCOL Performed By: #### L 501.080 ####[facility] [address] [place], [address] FINGERSTICK GLU 200 mg/dL High 74-106 [facility] Comment on above: Result Comment: EDGAR GEMENT OF PATIENT CARE PER NURSING PROTOCOL Performed By: #### L 501.080 ####[facility] [address] [place], [address] FINGERSTICK GLU 90 mg/dL Normal 74-106 [facility] Comment on above: Result Comment: EDGAR GEMENT OF PATIENT CARE PER NURSING PROTOCOL Performed By: #### L 501.080 ####[facility] [address] [place], [address] FINGERSTICK GLU 182 mg/dL High 74-106 [facility] Comment on above: Result Comment: EDGAR GEMENT OF PATIENT CARE PER NURSING PROTOCOL Performed By: #### L 501.080 ####[facility] [address] [place], [address] FINGERSTICK GLU 303 mg/dL High 74-106 [facility] Comment on above: Result Comment: EDGAR GEMENT OF PATIENT CARE PER NURSING PROTOCOL Performed By: #### L 501.080 ####[facility] [address] [place], [address] CBC W/Diff, Automatedon 02-2 -2024 Absolute Lymph 2.82 X10 3/uL Normal 0.83-4.51 [facility] Comment on above: Performed By: #### L 100.0100, L500.2500 ####[facility] [address] [place], [address] Absolute Neut 6.3 X10 3/uL Normal 2.0-7.7 [facility] Comment on above: Performed By: #### L 100.0100, L500.2500 ####[facility] [address] [place], [address] Basophils/100 WBC (Bld) 0.4 % Normal 0-1 [facility] Comment on above: Performed By: #### L 100.0100, L500.2500 ####[facility] [address] [place], [address] Eosinophils/100 WBC (Bld) 3.1 % Normal 0-5 [facility] Comment on above: Performed By: #### L 100.0100, L500.2500 ####[facility] [address] [place], [address] Erythrocyte distribution width (RBC) [Ratio] 13.0 % Normal 11.6-14.6 [facility] Comment on above: Performed By: #### L 100.0100, L500.2500 ####[facility] [address] [place], [address] Hematocrit (Bld) [Volume fraction] 40.2 % Normal 37-47 [facility] Comment on above: Performed By: #### L 100.0100, L500.2500 ####[facility] [address] [place], [address] Hemoglobin (Bld) [Mass/Vol] 13.0 g/dL Normal 12.0-15.0 [facility] Comment on above: Performed By: #### L 100.0100, L500.2500 ####[facility] [address] [place], [address] IG% 0.700 Normal 0.0-0.9 [facility] Comment on above: Result Comment: IG% - Immature Granulocytes (promyelocytes, myelocytes andmetamyelocytes) > 1% indicates that a LEFT SHIFT is Present. Performed By: #### L 100.0100, L500.2500 ####[facility] [address] [place], [address] Lymphocytes/100 WBC (Bld) 27.9 % Normal 19-41 [facility] Comment on above: Performed By: #### L 100.0100, L500.2500 ####[facility] [address] [place], [address] MCH (RBC) [Entitic mass] 28.6 pg Normal 27.0-32.0 [facility] Comment on above: Performed By: #### L 100.0100, L500.2500 ####[facility] [address] [place], [address] MCHC (RBC) [Mass/Vol] 32.3 g/dL Normal 32-36 [facility] Comment on above: Performed By: #### L 100.0100, L500.2500 ####[facility] [address] [place], [address] MCV (RBC) [Entitic vol] 88.5 fL Normal 81-99 [facility] Comment on above: Performed By: #### L 100.0100, L500.2500 ####[facility] [address] [place], [address] Monocytes/100 WBC (Bld) 5.5 % Normal 0-10 [facility] Comment on above: Performed By: #### L 100.0100, L500.2500 ####[facility] [address] [place], [address] Neutrophils/100 WBC (Bld) 62.4 % Normal 47-70 [facility] Comment on above: Performed By: #### L 100.0100, L500.2500 ####[facility] [address] [place], [address] Nucleated RBC (Bld) [#/Vol] 0 10*3/uL Normal 0-5 [facility] Comment on above: Performed By: #### L 100.0100, L500.2500 ####[facility] [address] [place], [address] Platelet mean volume (Bld) [Entitic vol] 12.5 fL High 6.2-12.0 [facility] Comment on above: Performed By: #### L 100.0100, L500.2500 ####[facility] [address] [place], [address] Platelets (Bld) [#/Vol] 158 10*3/uL Normal 150-450 [facility] Comment on above: Performed By: #### L 100.0100, L500.2500 ####[facility] [address] [place], [address] RBC (Bld) [#/Vol] 4.54 10*6/uL Normal 4.2-5.4 [facility] [facility] Comment on above: Performed By: #### L 100.0100, L500.2500 ####[facility] [address] [place], [address] RDW SD 42.4 fl Normal 35.1-43.9 [facility] Comment on above: Performed By: #### L 100.0100, L500.2500 ####[facility] [address] [place], [address] WBC (Bld) [#/Vol] 10.1 10*3/uL Normal 4.4-11.0 [facility] Comment on above: Performed By: #### L 100.0100, L500.2500 ####[facility] [address] [place], [address] Urine Cultureon 10-20-2024 URC Mixed Gram Positive Organisms [place] Count 11,000-25,000 MIXC Mixed contaminants. Submit a new specimen if indicated. Normal [facility] Comment on above: Performed By: #### M 100.2200 ####[facility] [address] [place], [address] Bedside Glucoseon 10-19-2024 FINGERSTICK GLU 246 mg/dL High 74-106 [facility] Comment on above: Result Comment: EDGAR GEMENT OF PATIENT CARE PER NURSING PROTOCOL Performed By: #### L 501.080 ####[facility] [address] [place], [address] FINGERSTICK GLU 85 mg/dL Normal 74-106 [facility] Comment on above: Result Comment: EDGAR GEMENT OF PATIENT CARE PER NURSING PROTOCOL Performed By: #### L 501.080 ####[facility] [address] [place], [address] FINGERSTICK GLU 35 mg/dL Invalid Interpretation Code [address] [place] [address] Comment on above: Result Comment: EDGAR GEMENT OF PATIENT CARE PER NURSING PROTOCOL Performed By: #### L 501.080 ####[facility] [address] [place], [address] FINGERSTICK GLU 64 mg/dL Low -[address] [place] [address] Comment on above: Result Comment: EDGAR GEMENT OF PATIENT CARE PER NURSING PROTOCOL Performed By: #### L 501.080 ####[facility] [address] [place], [address] FINGERSTICK GLU 156 mg/dL High 74-[address] [place] [address] Comment on above: Result Comment: EDGAR GEMENT OF PATIENT CARE PER NURSING PROTOCOL Performed By: #### L 501.080 ####[facility] [address] [place], [address] FINGERSTICK GLU 53 mg/dL Low -[address] [place] [address] Comment on above: Result Comment: EDGAR GEMENT OF PATIENT CARE PER NURSING PROTOCOL Performed By: #### L 501.080 ####[facility] [address] [place], [address] FINGERSTICK GLU 40 mg/dL Invalid Interpretation Code [address] [place] [address] Comment on above: Result Comment: Nelly blancas GivenMANAGEMENT OF PATIENT CARE PER NURSING PROTOCOL Performed By: #### L 501.080 ####[facility] [address] [place], [address] FINGERSTICK GLU 235 mg/dL High 74-106 [facility] Comment on above: Result Comment: EDGAR GEMENT OF PATIENT CARE PER NURSING PROTOCOL Performed By: #### L 501.080 ####[facility] [address] [place], [address] FINGERSTICK GLU 52 mg/dL Low 74-106 [facility] Comment on above: Result Comment: EDGAR GEMENT OF PATIENT CARE PER NURSING PROTOCOL Performed By: #### L 501.080 ####[facility] [address] [place], [address] FINGERSTICK GLU 132 mg/dL High 74-106 [facility] Comment on above: Result Comment: EDGAR GEMENT OF PATIENT CARE PER NURSING PROTOCOL Performed By: #### L 501.080 ####[facility] [address] [place], [address] CBC W/Diff, Automatedon 02 Absolute Lymph 3.09 X10 3/uL Normal 0.83-4.51 [facility] Comment on above: Performed By: #### L 100.0100, L500.4050 ####[facility] [address] [place], [address] Absolute Neut 6.9 X10 3/uL Normal 2.0-7.7 [facility] Comment on above: Performed By: #### L 100.0100, L500.4050 ####[facility] [address] [place], [address] Basophils/100 WBC (Bld) 0.5 % Normal 0-1 [facility] Comment on above: Performed By: #### L 100.0100, L500.4050 ####[facility] [address] [place], [address] Eosinophils/100 WBC (Bld) 1.8 % Normal 0-5 [facility] Comment on above: Performed By: #### L 100.0100, L500.4050 ####[facility] [address] [place], [address] Erythrocyte distribution width (RBC) [Ratio] 13.2 % Normal 11.6-14.6 [facility] Comment on above: Performed By: #### L 100.0100, L500.4050 ####[facility] [address] [place], [address] Hematocrit (Bld) [Volume fraction] 37.6 % Normal 37-47 [facility] Comment on above: Performed By: #### L 100.0100, L500.4050 ####[facility] [address] [place], [address] Hemoglobin (Bld) [Mass/Vol] 12.5 g/dL Normal 12.0-15.0 [facility] Comment on above: Performed By: #### L 100.0100, L500.4050 ####[facility] [address] [place], [address] IG% 0.800 Normal 0.0-0.9 [facility] Comment on above: Result Comment: IG% - Immature Granulocytes (promyelocytes, myelocytes andmetamyelocytes) > 1% indicates that a LEFT SHIFT is Present. Performed By: #### L 100.0100, L500.4050 ####[facility] [address] [place], [address] Lymphocytes/100 WBC (Bld) 27.9 % Normal 19-41 [facility] Comment on above: Performed By: #### L 100.0100, L500.4050 ####[facility] [address] [place], [address] MCH (RBC) [Entitic mass] 29.3 pg Normal 27.0-32.0 [facility] Comment on above: Performed By: #### L 100.0100, L500.4050 ####[facility] [address] [place], [address] MCHC (RBC) [Mass/Vol] 33.2 g/dL Normal 32-36 [facility] Comment on above: Performed By: #### L 100.0100, L500.4050 ####[facility] [address] [place], [address] MCV (RBC) [Entitic vol] 88.1 fL Normal 81-99 [facility] Comment on above: Performed By: #### L 100.0100, L500.4050 ####[facility] [address] [place], [address] Monocytes/100 WBC (Bld) 6.8 % Normal 0-10 [facility] Comment on above: Performed By: #### L 100.0100, L500.4050 ####[facility] [address] [place], [address] Neutrophils/100 WBC (Bld) 62.2 % Normal 47-70 [facility] Comment on above: Performed By: #### L 100.0100, L500.4050 ####[facility] [address] [place], [address] Nucleated RBC (Bld) [#/Vol] 0 10*3/uL Normal 0-5 [facility] Comment on above: Performed By: #### L 100.0100, L500.4050 ####[facility] [address] [place], [address] Platelet mean volume (Bld) [Entitic vol] 12.0 fL Normal 6.2-12.0 [facility] Comment on above: Performed By: #### L 100.0100, L500.4050 ####[facility] [address] [place], [address] Platelets (Bld) [#/Vol] 149 10*3/uL Low 150-450 [facility] Comment on above: Performed By: #### L 100.0100, L500.4050 ####[facility] [address] [place], [address] RBC (Bld) [#/Vol] 4.27 10*6/uL Normal 4.2-5.4 [facility] Comment on above: Performed By: #### L 100.0100, L500.4050 ####[facility] [address] [place], [address] RDW SD 42.4 fl Normal 35.1-43.9 [facility] Comment on above: Performed By: #### L 100.0100, L500.4050 ####[facility] [address] [place], [address] WBC (Bld) [#/Vol] 11.1 10*3/uL High 4.4-11.0 [facility] Comment on above: Performed By: #### L 100.0100, L500.4050 ####[facility] [address] [place], [address] Comprehensive Metabolic Prof ilon 10-19-2024 Albumin [Mass/Vol] 3.0 g/dL Low 3.2-5.0 [facility] Comment on above: Performed By: #### L 100.0100, L500.4050 ####[facility] [address] [place], [address] Albumin/Globulin [Mass ratio] 0.9 {ratio} Normal 0.9-2.4 [facility] Comment on above: Performed By: #### L 100.0100, L500.4050 ####[facility] [address] [place], [address] ALK P 67 U/L Normal 45-117 [facility] Comment on above: Performed By: #### L 100.0100, L500.4050 ####[facility] [address] [place], [address] ALT [Catalytic activity/Vol] 21 U/L Normal 13-56 [facility] Comment on above: Performed By: #### L 100.0100, L500.4050 ####[facility] [address] [place], [address] AST [Catalytic activity/Vol] 13 U/L Low 15-37 [facility] Comment on above: Performed By: #### L 100.0100, L500.4050 ####[facility] [address] [place], [address] Bilirubin [Mass/Vol] 0.40 mg/dL Normal 0.20-1.00 [facility] Comment on above: Result Comment: For patients on eltrombopag therapy, use of Dimension Liberty TBIL is not recommended. Performed By: #### L 100.0100, L500.4050 ####[facility] [address] [place], [address] BUN/CRE 14.4 RATIO Normal 10-20 [facility] Comment on above: Performed By: #### L 100.0100, L500.4050 ####[facility] [address] [place], [address] CA,Total 8.2 mg/dL Low 8.5-10.1 [facility] Comment on above: Performed By: #### L 100.0100, L500.4050 ####[facility] [address] [place], [address] Chloride [Moles/Vol] 112 mmol/L High 98-107 [facility] Comment on above: Performed By: #### L 100.0100, L500.4050 ####[facility] [address] [place], [address] CO2 [Moles/Vol] 21.0 mmol/L Normal 21.0-32.0 [facility] Comment on above: Performed By: #### L 100.0100, L500.4050 ####[facility] [address] [place], [address] Creatinine [Mass/Vol] 0.55 mg/dL Normal 0.55-1.02 [facility] Comment on above: Result Comment: The validity of the calculated GFR GFRAA in patients over70 years has not been determined. Clinical correlation isessential. Performed By: #### L 100.0100, L500.4050 ####[facility] [address] [place], [address] ECRCL 156.31 ml/min Normal [facility] Comment on above: Performed By: #### L 100.0100, L500.4050 ####[facility] [address] [place], [address] EST GFR - AA 165 mL/min Normal >60 [facility] Comment on above: Result Comment: Afri can Brazilian GFR Calc Performed By: #### L 100.0100, L500.4050 ####[facility] [address] [place], [address] GAP 8 Normal 5-15 [facility] Comment on above: Performed By: #### L 100.0100, L500.4050 ####[facility] [address] [place], [address] GFR/1.73 sq M.predicted among non-blacks MDRD (S/P/Bld) [Vol rate/Area] 137 mL/min/{1.73_m2} Normal >60 [facility] Comment on above: Result Comment: Non- GFR Calc Performed By: #### L 100.0100, L500.4050 ####[facility] [address] [place], [address] Globulin (S) [Mass/Vol] 3.2 g/dL Normal 2.2-4.2 [facility] Comment on above: Performed By: #### L 100.0100, L500.4050 ####[facility] [address] [place], [address] Glucose [Mass/Vol] 49 mg/dL Low 74-106 [facility] Comment on above: Result Comment: Gluc ose result less than 50 mg/dL suggests HYPOGLYCEMIA. Performed By: #### L 100.0100, L500.4050 ####[facility] [address] [place], [address] Potassium [Moles/Vol] 3.7 mmol/L Normal 3.5-5.1 [facility] Comment on above: Performed By: #### L 100.0100, L500.4050 ####[facility] [address] [place], [address] Sodium [Moles/Vol] 140 mmol/L Normal 136-145 [facility] Comment on above: Performed By: #### L 100.0100, L500.4050 ####[facility] [address] [place], [address] T PROT 6.2 g/dL Low 6.4-8.2 [facility] Comment on above: Performed By: #### L 100.0100, L500.4050 ####[facility] [address] [place], [address] Urea nitrogen [Mass/Vol] 8 mg/dL Normal 7-18 [facility] Comment on above: Performed By: #### L 100.0100, L500.4050 ####[facility] [address] [place], [address] Glucoseon 10-19-2024 Glucose [Mass/Vol] 231 mg/dL High 74-106 [facility] Comment on above: Result Comment: Gluc ose result greater than or equal to 200 mg/dLsuggests DIABETES MELLITUS per A.D.A. criteria. Performed By: #### L 501.0100 ####[facility] [address] [place], [address] Glucose [Mass/Vol] 88 mg/dL Normal 74-106 [facility] Comment on above: Performed By: #### L 501.0100 ####[facility] [address] [place], [address] 12 Lead EKGon 10-18-2024 12 Lead EKG Normal [facility] Abdomen/Pelvis W IV Cont ONL Yon 10-18-2024 Abdomen/Pelvis W IV Cont ONLY Normal [facility] Acetone Serumon 10-18-2024 ACETONE SERUM Negative Normal NEG [facility] Comment on above: Performed By: #### L 501.6900 ####[facility] [address] [place], [address] Bedside Glucoseon 10-18-2024 FINGERSTICK GLU 85 mg/dL Normal [address] [place] [address] Comment on above: Result Comment: EDGAR GEMENT OF PATIENT CARE PER NURSING PROTOCOL Performed By: #### L 501.080 ####[facility] [address] [place], [address] FINGERSTICK GLU 100 mg/dL Normal [address] [place] [address] Comment on above: Result Comment: EDGAR GEMENT OF PATIENT CARE PER NURSING PROTOCOL Performed By: #### L 501.080 ####[facility] [address] [place], [address] FINGERSTICK GLU 62 mg/dL Low -[address] [place] [address] Comment on above: Result Comment: EDGAR GEMENT OF PATIENT CARE PER NURSING PROTOCOL Performed By: #### L 501.080 ####[facility] [address] [place], [address] CBC W/Diff, Automatedon 02-2 Absolute Lymph 1.82 X10 3/uL Normal 0.83-4.51 [facility] Comment on above: Performed By: #### L 501.2450, L100.0100, L700.6800, L500.4050 ####[facility] [address] [place], [address] Absolute Neut 14.0 X10 3/uL High 2.0-7.7 [facility] Comment on above: Performed By: #### L 501.2450, L100.0100, L700.6800, L500.4050 ####[facility] [address] [place], [address] Basophils/100 WBC (Bld) 0.2 % Normal 0-1 [facility] Comment on above: Performed By: #### L 501.2450, L100.0100, L700.6800, L500.4050 ####[facility] [address] [place], [address] Eosinophils/100 WBC (Bld) 0.2 % Normal 0-5 [facility] Comment on above: Performed By: #### L 501.2450, L100.0100, L700.6800, L500.4050 ####[facility] [address] [place], [address] Erythrocyte distribution width (RBC) [Ratio] 13.1 % Normal 11.6-14.6 [facility] Comment on above: Performed By: #### L 501.2450, L100.0100, L700.6800, L500.4050 ####[facility] [address] [place], [address] Hematocrit (Bld) [Volume fraction] 38.8 % Normal 37-47 [facility] Comment on above: Performed By: #### L 501.2450, L100.0100, L700.6800, L500.4050 ####[facility] [address] [place], [address] Hemoglobin (Bld) [Mass/Vol] 12.9 g/dL Normal 12.0-15.0 [facility] Comment on above: Performed By: #### L 501.2450, L100.0100, L700.6800, L500.4050 ####[facility] [address] [place], [address] IG% 0.600 Normal 0.0-0.9 [facility] Comment on above: Result Comment: IG% - Immature Granulocytes (promyelocytes, myelocytes andmetamyelocytes) > 1% indicates that a LEFT SHIFT is Present. Performed By: #### L 501.2450, L100.0100, L700.6800, L500.4050 ####[facility] [address] [place], [address] Lymphocytes/100 WBC (Bld) 10.7 % Low 19-41 [facility] Comment on above: Performed By: #### L 501.2450, L100.0100, L700.6800, L500.4050 ####[facility] [address] [place], [address] MCH (RBC) [Entitic mass] 29.3 pg Normal 27.0-32.0 [facility] Comment on above: Performed By: #### L 501.2450, L100.0100, L700.6800, L500.4050 ####[facility] [address] [place], [address] MCHC (RBC) [Mass/Vol] 33.2 g/dL Normal 32-36 [facility] Comment on above: Performed By: #### L 501.2450, L100.0100, L700.6800, L500.4050 ####[facility] [address] [place], [address] MCV (RBC) [Entitic vol] 88.2 fL Normal 81-99 [facility] Comment on above: Performed By: #### L 501.2450, L100.0100, L700.6800, L500.4050 ####[facility] [address] [place], [address] Monocytes/100 WBC (Bld) 6.1 % Normal 0-10 [facility] Comment on above: Performed By: #### L 501.2450, L100.0100, L700.6800, L500.4050 ####[facility] [address] [place], [address] Neutrophils/100 WBC (Bld) 82.2 % High 47-70 [facility] Comment on above: Performed By: #### L 501.2450, L100.0100, L700.6800, L500.4050 ####[facility] [address] [place], [address] Nucleated RBC (Bld) [#/Vol] 0 10*3/uL Normal 0-5 [facility] Comment on above: Performed By: #### L 501.2450, L100.0100, L700.6800, L500.4050 ####[facility] [address] [place], [address] Platelet mean volume (Bld) [Entitic vol] 12.3 fL High 6.2-12.0 [facility] Comment on above: Performed By: #### L 501.2450, L100.0100, L700.6800, L500.4050 ####[facility] [address] [place], [address] Platelets (Bld) [#/Vol] 166 10*3/uL Normal 150-450 [facility] Comment on above: Performed By: #### L 501.2450, L100.0100, L700.6800, L500.4050 ####[facility] [address] [place], [address] RBC (Bld) [#/Vol] 4.40 10*6/uL Normal 4.2-5.4 [facility] Comment on above: Performed By: #### L 501.2450, L100.0100, L700.6800, L500.4050 ####[facility] [address] [place], [address] RDW SD 42.5 fl Normal 35.1-43.9 [facility] Comment on above: Performed By: #### L 501.2450, L100.0100, L700.6800, L500.4050 ####[facility] [address] [place], [address] WBC (Bld) [#/Vol] 17.1 10*3/uL High 4.4-11.0 [facility] Comment on above: Performed By: #### L 501.2450, L100.0100, L700.6800, L500.4050 ####[facility] [address] [place], [address] Comprehensive Metabolic Prof [facility] 10-18-2024 Albumin [Mass/Vol] 3.7 g/dL Normal 3.2-5.0 [facility] Comment on above: Performed By: #### L 501.2450, L100.0100, L700.6800, L500.4050 ####[facility] [address] [place], [address] Albumin/Globulin [Mass ratio] 1.1 {ratio} Normal 0.9-2.4 [facility] Comment on above: Performed By: #### L 501.2450, L100.0100, L700.6800, L500.4050 ####[facility] [address] [place], [address] ALK P 84 U/L Normal 45-117 [facility] Comment on above: Performed By: #### L 501.2450, L100.0100, L700.6800, L500.4050 ####[facility] [address] [place], [address] ALT [Catalytic activity/Vol] 24 U/L Normal 13-56 [facility] Comment on above: Performed By: #### L 501.2450, L100.0100, L700.6800, L500.4050 ####[facility] [address] [place], [address] AST [Catalytic activity/Vol] 14 U/L Low 15-37 [facility] Comment on above: Performed By: #### L 501.2450, L100.0100, L700.6800, L500.4050 ####[facility] [address] [place], [address] Bilirubin [Mass/Vol] 0.40 mg/dL Normal 0.20-1.00 [facility] Comment on above: Result Comment: For patients on eltrombopag therapy, use of Dimension Liberty TBIL is not recommended. Performed By: #### L 501.2450, L100.0100, L700.6800, L500.4050 ####[facility] [address] [place], [address] BUN/CRE 19.7 RATIO Normal 10-20 [facility] Comment on above: Performed By: #### L 501.2450, L100.0100, L700.6800, L500.4050 ####[facility] [address] [place], [address] CA,Total 9.4 mg/dL Normal 8.5-10.1 [facility] Comment on above: Performed By: #### L 501.2450, L100.0100, L700.6800, L500.4050 ####[facility] [address] [place], [address] Chloride [Moles/Vol] 109 mmol/L High 98-107 [facility] Comment on above: Performed By: #### L 501.2450, L100.0100, L700.6800, L500.4050 ####[facility] [address] [place], [address] CO2 [Moles/Vol] 25.0 mmol/L Normal 21.0-32.0 [facility] Comment on above: Performed By: #### L 501.2450, L100.0100, L700.6800, L500.4050 ####[facility] [address] [place], [address] Creatinine [Mass/Vol] 0.76 mg/dL Normal 0.55-1.02 [facility] Comment on above: Result Comment: The validity of the calculated GFR GFRAA in patients over70 years has not been determined. Clinical correlation isessential. Performed By: #### L 501.2450, L100.0100, L700.6800, L500.4050 ####[facility] [address] [place], [address] ECRCL 123.05 ml/min Normal [facility] Comment on above: Performed By: #### L 501.2450, L100.0100, L700.6800, L500.4050 ####[facility] [address] [place], [address] EST GFR - AA 115 mL/min Normal >60 [facility] Comment on above: Result Comment: Afri can Brazilian GFR Calc Performed By: #### L 501.2450, L100.0100, L700.6800, L500.4050 ####[facility] [address] [place], [address] GAP 5 Normal 5-15 [facility] Comment on above: Performed By: #### L 501.2450, L100.0100, L700.6800, L500.4050 ####[facility] [address] [place], [address] GFR/1.73 sq M.predicted among non-blacks MDRD (S/P/Bld) [Vol rate/Area] 95 mL/min/{1.73_m2} Normal >60 [facility] Comment on above: Result Comment: Non- GFR Calc Performed By: #### L 501.2450, L100.0100, L700.6800, L500.4050 ####[facility] [address] [place], [address] Globulin (S) [Mass/Vol] 3.4 g/dL Normal 2.2-4.2 [facility] Comment on above: Performed By: #### L 501.2450, L100.0100, L700.6800, L500.4050 ####[facility] [address] [place], [address] Glucose [Mass/Vol] 116 mg/dL High 74-106 [facility] Comment on above: Result Comment: Fast ing Glucose result from 100 to 125 mg/dLsuggests IMPAIRED HOMEOSTASIS per A.D.A. criteria. Performed By: #### L 501.2450, L100.0100, L700.6800, L500.4050 ####[facility] [address] [place], [address] Potassium [Moles/Vol] 4.0 mmol/L Normal 3.5-5.1 [facility] Comment on above: Performed By: #### L 501.2450, L100.0100, L700.6800, L500.4050 ####[facility] [address] [place], [address] Sodium [Moles/Vol] 139 mmol/L Normal 136-145 [facility] Comment on above: Performed By: #### L 501.2450, L100.0100, L700.6800, L500.4050 ####[facility] [address] [place], [address] T PROT 7.1 g/dL Normal 6.4-8.2 [facility] Comment on above: Performed By: #### L 501.2450, L100.0100, L700.6800, L500.4050 ####[facility] [address] [place], [address] Urea nitrogen [Mass/Vol] 15 mg/dL Normal 7-18 [facility] Comment on above: Performed By: #### L 501.2450, L100.0100, L700.6800, L500.4050 ####[facility] [address] [place], [address] Emergency Department Summary on 10-18-2024 Emergency Department Summary Normal [facility] H AND P Exam - Hospitaliston 10-18-2024 H&P Exam - Hospitalist Normal [facility] Lactic Acidon 10-18-2024 Lactate [Moles/Vol] 1.4 mmol/L Normal 0.4-1.9 [facility] Comment on above: Order Comment: Y Performed By: #### L 700.6800, L503.6005 ####[facility] [address] [place], [address] Lipaseon 10-18-2024 Lipase [Catalytic activity/Vol] 18 U/L Low 73-393 [facility] Comment on above: Performed By: #### L 501.2450, L100.0100, L700.6800, L500.4050 ####[facility] [address] [place], [address] M100.678on 10-18-2024 M100.678 SARS-CoV-2 (COVID 19 ) Negative INFLUENZA A Negative INFLUENZA B Negative RSV PCR Negative Normal [facility] Comment on above: Performed By: #### M 100.678 ####[facility] [address] [place], [address] Magnesiumon 10-18-2024 Magnesium [Mass/Vol] 1.8 mg/dL Normal 1.6-2.6 [facility] Comment on above: Order Comment: Comme nts: May add to ED labsComments: may add to ED labs Performed By: #### L 509.7000, L501.2300, L501.5200 ####[facility] [address] [place], [address] Phosphoruson 10-18-2024 Phosphate [Mass/Vol] 3.3 mg/dL Normal 2.5-4.9 [facility] Comment on above: Order Comment: Comme nts: May add to ED labsComments: may add to ED labs Performed By: #### L 509.7000, L501.2300, L501.5200 ####[facility] [address] [place], [address] ,Serum,hCG Quali.on 10-18-2024 HCG, SERUM QUAL Negative Normal [facility] Comment on above: Performed By: #### L 501.2450, L100.0100, L700.6800, L500.4050 ####[facility] [address] [place], [address] HCG, SERUM QUAL Normal [facility] Comment on above: Result Comment: Mary sanchez via OM: Ordered Performed By: #### L 700.6800, L503.6005 ####[facility] [address] [place], [address] INTERNAL QC OK? Normal [facility] Comment on above: Result Comment: Canc elled via OM: MD Ordered Performed By: #### L 700.6800, L503.6005 ####[facility] [address] [place], [address] RECORD KIT LOT# Normal [facility] Comment on above: Result Comment: Canc elled via OM: MD Ordered Performed By: #### L 700.6800, L503.6005 ####[facility] [address] [place], [address] Procalcitoninon 10-18-2024 Procalcitonin 0.07 ng/mL Normal 0.00-0.09 [facility] Comment on above: Result Comment: A pr ocalcitonin (PCT) level above 2.0 ng/mL on the first day of ICU admission is associated with a high risk for progression to severe sepsis and/or septic shock. A PCT level below 0.5 ng/mL on the first day of ICU admission is associated with a low risk for progression to severe and/or septic shock. Note: Concentrations <0.5 ng/mL do not exclude an infection on account of localized infections (without systemic signs) which can be associated with such low concentrations, or a systemic infection in its initial stages (<6 hours). Furthermore, increased procalcitonin can occur without infection. PCT concentrations between 0.5 and 2.0 ng/mL should be interpreted taking into account the patient's history. It is recommended to retest PCT within 6-24 hours if any concentrations <2 ng/mL are obtained. Performed By: #### L 509.7000, L501.2300, L501.5200 ####[facility] [address] [place], [place], [address] Urinalysis, Completeon 10-18 BACTERIA 1+ /hpf Normal None Seen [facility] Comment on above: Order Comment: CLEAN CATCH Performed By: #### L 400.0001 ####[facility] [address] [place], [address] EPI,SQUAMOUS 0-5 SEEN Normal 5-10 [facility] Comment on above: Order Comment: CLEAN CATCH Performed By: #### L 400.0001 ####[facility] [address] [place], [address] Mucus Ql (Urine sed) 1+ /hpf Normal [facility] Comment on above: Order Comment: CLEAN CATCH Performed By: #### L 400.0001 ####[facility] [address] [place], [address] RBC 5-10 SEEN Normal 0-5 [facility] Comment on above: Order Comment: CLEAN CATCH Performed By: #### L 400.0001 ####[facility] [address] [place], [address] WBC 10-25 SEEN Normal 0-5 [facility] Comment on above: Order Comment: CLEAN CATCH Performed By: #### L 400.0001 ####[facility] [address] [place], [address] Venous Blood Gason 5 Blood Gas Type ISABELLE Normal [facility] Comment on above: Performed By: #### L 9000.0810 ####[facility] [address] [place], [address] CO2 [Moles/Vol] 26 mmol/L Normal 23-33 [facility] Comment on above: Performed By: #### L 9000.0810 ####[facility] [address] [place], [address] HCO3 (Bld) [Moles/Vol] 25 mmol/L Normal 22-26 [facility] Comment on above: Performed By: #### L 9000.0810 ####[facility] [address] [place], [address] O2 Delivery Dev Room Air Normal [facility] Comment on above: Performed By: #### L 9000.0810 ####[facility] [address] [place], [address] SITE Not entered Normal [facility] Comment on above: Performed By: #### L 9000.0810 ####[facility] [address] [place], [address] VBG BE 0 mmol/L Normal -1.0-3.5 [facility] Comment on above: Performed By: #### L 9000.0810 ####[facility] [address] [place], [address] VBG pCO2 41.6 mmHg Normal 41-51 [facility] Comment on above: Performed By: #### L 9000.0810 ####[facility] [address] [place], [address] VBG pH 7.38 Normal 7.32-7.42 [facility] Comment on above: Performed By: #### L 9000.0810 ####[facility] [address] [place], [address] VBG PO2 32 mmHg Normal 25-40 [facility] Comment on above: Performed By: #### L 9000.0810 ####[facility] [address] [place], [address] VBG SO2 59 Normal 50-70 [facility] Comment on above: Performed By: #### L 9000.0810 ####[facility] [address] [place], [address] CNPDanitza 10-02-2024 GIOVANA Telephone (ENDOIN) KATHLEEN VILLA ([id number]) 1995 F CHT Date Time Provider Department 10/02/24 JESSICA GUERRERO During your visit today, we recorded the following information about you: Nichole Quinteros 10/02/2024 9:53 AM Signed Patient has been identified by name and date of : Yes Type of form: [facility] Medical Physician Order for Insulin Pump Therapy and Diabetes Testing Form received via: abstract When form is completed, fax form to fax number provided. Form has been forwarded to: Provider's mailbox. Provider name: FRIEDA Urena Diamond, RN 10/02/2024 2:45 PM Signed Clinical notes and DWO for infusion supplies placed on providers desk to review and advise. To be faxed to [facility] Medical [phone] Jessica Guerrero APRN.CNP 10/02/2024 3:09 PM Signed Form signed. RHYS Urena Diamond, RN 10/10/2024 11:49 AM Signed Form re-faxed per [facility] request Allergies As of Date: 10/02/2024 Noted Allergy Reaction KEFLEX (CEPHALEXIN) 11/12/2013 14 - Other: See Comments Comments: Yeast infection MORPHINE 08/30/2013 2 - Rash 9 - Itching ZOFRAN (ONDANSETRON HCL (PF)) 01/14/2015 14 - Other: See Comments Comments: Syncope, incontinence ADHESIVE TAPE (ROSINS) 09/04/2013 2 - Rash INDOMETHACIN 11/20/2003 2 - Rash PERCOCET (OXYCODONE-ACETAMINOPH EN)01/10/2014 2 - Rash 5 - Intolerance 9 - Itching ADHESIVE 11/07/2022 2 - Rash Date Reviewed: 09/02/2024 Reviewed by: Leticia Hylton DO - Fully Assessed Reason for Visit: Forms [203] Prescriptions as of 10/10/2024 - Acetone, Urine, Test (KETONE URINE TEST) In case of concern with DKA, to be used at home - busPIRone (BUSPAR) 5 mg tablet Take 1 tablet by mouth every 12 hours. - mirtazapine (REMERON) 15 mg tablet Take 15 mg by mouth daily at bedtime. - insulin glargine (LANTUS SOLOSTAR U-100 INSULIN) 100 unit/mL (3 mL) Inject 43 Units subcutaneously every 24 hours. - Insulin [place], Disposable, (PEN NEEDLE) 32 gauge x /32 Inject 4 Each subcutaneously every 24 hours. Give with each insulin administration. - insulin lispro (HUMALOG KWIKPEN) 100 unit/mL Please inject three times a day with meals- 1 unit for every 10 grams of carbs AND sliding scale 1 ADMINISTER SUPPLEMENTAL INSULIN REGARDLESS OF MEAL OR NUTRITION INTAKE: If Blood Glucose (mg/dL) is <110 Give 0 units 111-150 Give 0 units 151-200 Give 1 unit 201-250 Give 2 units 251-300 Give 3 units 301-350 Give 4 units 351-400 Give 5 units >400 give 5 units and notify provider. MAX TDD 40 units - Lancets (MICROLET LANCET) Use as instructed to test blood sugar 4 times daily. E10.65 - insulin lispro (HUMALOG U-100 INSULIN) 100 unit/mL injection Use in the Insulin Pump for TDD of 100 units. - Needle, Disp, 23 G 23 gauge x 1 ndle Use to inject Solucortef intramuscularly - promethazine (PHENERGAN) 25 mg tablet Take 1 tablet by mouth every 6 hours as needed. - blood sugar diagnostic (CONTOUR NEXT TEST STRIPS) test strip Use as instructed to check blood glucose 5 times daily. E10.65 - lubiprostone (AMITIZA) 8 mcg capsule Take 1 capsule by mouth twice daily with meals. - prochlorperazine (COMPAZINE) 10 mg tablet Take 1 tablet by mouth every 6 hours as needed. - glucose 4 gram chewable tablet Take 4 tablets by mouth as needed. - SKYRIZI 150 mg/mL injection INJECT 150 MG UNDER THE SKIN EVERY 12 WEEKS Meds Comments as of 01/09/2020: All meds reviewed before sx. Pt has aye also for after sx. CL 01/09/20 IC PNV prenata plus multivitamin Problem List As Of Date 10/02/2024 Noted Resolved Retinal detachment [H33.20] 10/26/2012 12/25/2012 SUMMARY [V999.95] 12/25/2012 Acute chest pain [R07.9] 12/25/2012 Marfan syndrome [Q87.40] 12/25/2012 DM (diabetes mellitus) (HCC) [E11.9] 12/25/2012 Gastroparesis due to DM (HCC) [E11.43, K31.84] 12/25/2012 PTSD (post-traumatic stress disorder) [F43.10] 12/25/2012 DVT prophylaxis [ASY9477] 12/25/2012 09/04/2013 DISPOSITION AND FOLLOW-UP [V999.01] 12/25/2012 09/04/2013 HTN (hypertension) [I10] Hypertension in , antepartum [O16.9] 09/19/2013 01/08/2014 GBS (group B Streptococcus carrier), +RV cultur*11/11/2013 04/16/2014 [Z34.90] 11/22/2013 04/16/2014 Diabetes mellitus in (HCC) [O24.919] 12/25/2013 04/16/2014 Diabetic ketoacidosis without coma associated w*01/08/2014 02/04/2023 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 Normal [facility] Basic Metabolic Profile (BMP )on 09-02-2024 BUN/CRE 16.2 RATIO Normal 06-16 [facility] Comment on above: Performed By: #### L 100.0100, L500.2500 ####[facility] [address] [place], [address] CA,Total 9.2 mg/dL Normal 8.5-10.1 [facility] Comment on above: Performed By: #### L 100.0100, L500.2500 ####[facility] [address] [place], [address] Chloride [Moles/Vol] 112 mmol/L High 98-107 [facility] Comment on above: Performed By: #### L 100.0100, L500.2500 ####[facility] [address] [place], [address] CO2 [Moles/Vol] 21.0 mmol/L Normal 21.0-32.0 [facility] Comment on above: Performed By: #### L 100.0100, L500.2500 ####[facility] [address] [place], [address] Creatinine [Mass/Vol] 0.86 mg/dL Normal 0.55-1.02 [facility] Comment on above: Result Comment: The validity of the calculated GFR GFRAA in patients over70 years has not been determined. Clinical correlation isessential. Performed By: #### L 100.0100, L500.2500 ####[facility] [address] [place], [address] ECRCL 99.96 ml/min Normal [facility] Comment on above: Performed By: #### L 100.0100, L500.2500 ####[facility] [address] [place], [address] EST GFR - AA 99 mL/min Normal >60 [facility] Comment on above: Result Comment: Afri can Brazilian GFR Calc Performed By: #### L 100.0100, L500.2500 ####[facility] [address] [place], [address] GAP 10 Normal 5-15 [facility] Comment on above: Performed By: #### L 100.0100, L500.2500 ####[facility] [address] [place], [address] GFR/1.73 sq M.predicted among non-blacks MDRD (S/P/Bld) [Vol rate/Area] 82 mL/min/{1.73_m2} Normal >60 [facility] Comment on above: Result Comment: Non- GFR Calc Performed By: #### L 100.0100, L500.2500 ####[facility] [address] [place], [address] Glucose [Mass/Vol] 129 mg/dL High 74-106 [facility] Comment on above: Result Comment: Fast ing Glucose result greater than or equal to 126 mg/dLsuggests DIABETES MELLITUS per A.D.A. criteria. Performed By: #### L 100.0100, L500.2500 ####[facility] [address] [place], [address] Potassium [Moles/Vol] 3.0 mmol/L Low 3.5-5.1 [facility] Comment on above: Performed By: #### L 100.0100, L500.2500 ####[facility] [address] [place], [address] Sodium [Moles/Vol] 142 mmol/L Normal 136-145 [facility] Comment on above: Performed By: #### L 100.0100, L500.2500 ####[facility] [address] [place], [address] Urea nitrogen [Mass/Vol] 14 mg/dL Normal 7-18 [facility] Comment on above: Performed By: #### L 100.0100, L500.2500 ####[facility] [address] [place], [address] CBC W/Diff, Automatedon 0 Absolute Lymph 2.60 X10 3/uL Normal 0.83-4.51 [facility] Comment on above: Performed By: #### L 100.0100, L500.2500 ####[facility] [address] [place], [address] Absolute Neut 12.8 X10 3/uL High 2.0-7.7 [facility] Comment on above: Performed By: #### L 100.0100, L500.2500 ####[facility] [address] [place], [address] Basophils/100 WBC (Bld) 0.5 % Normal 0-1 [facility] Comment on above: Performed By: #### L 100.0100, L500.2500 ####[facility] [address] [place], [address] Eosinophils/100 WBC (Bld) 0.4 % Normal 0-5 [facility] Comment on above: Performed By: #### L 100.0100, L500.2500 ####[facility] [address] [place], [address] Erythrocyte distribution width (RBC) [Ratio] 12.6 % Normal 11.6-14.6 [facility] Comment on above: Performed By: #### L 100.0100, L500.2500 ####[facility] [address] [place], [address] Hematocrit (Bld) [Volume fraction] 42.7 % Normal 37-47 [facility] Comment on above: Performed By: #### L 100.0100, L500.2500 ####[facility] [address] [place], [address] Hemoglobin (Bld) [Mass/Vol] 14.1 g/dL Normal 12.0-15.0 [facility] Comment on above: Performed By: #### L 100.0100, L500.2500 ####[facility] [address] [place], [address] IG% 1.000 High 0.0-0.9 [facility] Comment on above: Result Comment: IG% - Immature Granulocytes (promyelocytes, myelocytes andmetamyelocytes) > 1% indicates that a LEFT SHIFT is Present. Performed By: #### L 100.0100, L500.2500 ####[facility] [address] [place], [address] Lymphocytes/100 WBC (Bld) 15.8 % Low 19-41 [facility] Comment on above: Performed By: #### L 100.0100, L500.2500 ####[facility] [address] [place], [address] MCH (RBC) [Entitic mass] 28.9 pg Normal 27.0-32.0 [facility] Comment on above: Performed By: #### L 100.0100, L500.2500 ####[facility] [address] [place], [address] MCHC (RBC) [Mass/Vol] 33.0 g/dL Normal 32-36 [facility] Comment on above: Performed By: #### L 100.0100, L500.2500 ####[facility] [address] [place], [address] MCV (RBC) [Entitic vol] 87.5 fL Normal 81-99 [facility] Comment on above: Performed By: #### L 100.0100, L500.2500 ####[facility] [address] [place], [address] Monocytes/100 WBC (Bld) 4.6 % Normal 0-10 [facility] Comment on above: Performed By: #### L 100.0100, L500.2500 ####[facility] [address] [place], [address] Neutrophils/100 WBC (Bld) 77.7 % High 47-70 [facility] Comment on above: Performed By: #### L 100.0100, L500.2500 ####[facility] [address] [place], [address] Nucleated RBC (Bld) [#/Vol] 0 10*3/uL Normal 0-5 [facility] Comment on above: Performed By: #### L 100.0100, L500.2500 ####[facility] [address] [place], [address] Platelet mean volume (Bld) [Entitic vol] 12.5 fL High 6.2-12.0 [facility] Comment on above: Performed By: #### L 100.0100, L500.2500 ####[facility] [address] [place], [address] Platelets (Bld) [#/Vol] 199 10*3/uL Normal 150-450 [facility] Comment on above: Performed By: #### L 100.0100, L500.2500 ####[facility] [address] [place], [address] RBC (Bld) [#/Vol] 4.88 10*6/uL Normal 4.2-5.4 [facility] Comment on above: Performed By: #### L 100.0100, L500.2500 ####[facility] [address] [place], [address] RDW SD 40.3 fl Normal 35.1-43.9 [facility] Comment on above: Performed By: #### L 100.0100, L500.2500 ####[facility] [address] [place], [address] WBC (Bld) [#/Vol] 16.5 10*3/uL High 4.4-11.0 [facility] Comment on above: Performed By: #### L 100.0100, L500.2500 ####[facility] [address] [place], [address] Emergency Department Summary on 09-02-2024 Emergency Department Summary Normal [facility] Urinalysis, Completeon 09-02 BACTERIA 2+ /hpf Normal None Seen [facility] Comment on above: Order Comment: CLEAN CATCH Performed By: #### L 400.0001 ####[facility] [address] [place], [address] EPI,SQUAMOUS 0-5 SEEN Normal 5-10 [facility] Comment on above: Order Comment: CLEAN CATCH Performed By: #### L 400.0001 ####[facility] [address] [place], [address] Mucus Ql (Urine sed) RARE Normal [facility] Comment on above: Order Comment: CLEAN CATCH Performed By: #### L 400.0001 ####[facility] [address] [place], [address] WBC 0-5 SEEN Normal 0-5 [facility] Comment on above: Order Comment: CLEAN CATCH Performed By: #### L 400.0001 ####[facility] [address] [place], [address] RBC 0 SEEN Normal 0-5 [facility] Comment on above: Order Comment: CLEAN CATCH Performed By: #### L 400.0001 ####[facility] [address] [place], [address] 36on 08-07-2024 36 Medication: Skyrizi 150mg/ml Dosing Schedule: 150mg every 12 weeks Prior Authorization: Submitted date: 08.07.2024 [place] reference #: [id number] Approval dates: 08.07.2024-08.27.2024 [facility] [phone] Normal [facility] Urine Cultureon 08-04-2024 [facility] Mixed Gram Positive Organisms [place] Count 11,000-25,000 MIX[facility] Mixed contaminants. Submit a new specimen if indicated. Normal [facility] Comment on above: Performed By: #### M 100.8329 ####[facility] [address] [place], [address] Basic Metabolic Profile (BMP )on 08-03-2024 BUN/CRE 9.9 RATIO Low 10-20 [facility] Comment on above: Order Comment: Call MD with results STAT Performed By: #### L 501.9520, L500.2500, L501.2300 ####[facility] [address] [place], [address] CA,Total 7.9 mg/dL Low 8.5-10.1 [facility] Comment on above: Order Comment: Call MD with results STAT Performed By: #### L 501.9520, L500.2500, L501.2300 ####[facility] [address] [place], [address] Chloride [Moles/Vol] 114 mmol/L High 98-107 [facility] Comment on above: Order Comment: Call MD with results STAT Performed By: #### L 501.9520, L500.2500, L501.2300 ####[facility] [address] [place], [address] CO2 [Moles/Vol] 22.0 mmol/L Normal 21.0-32.0 [facility] Comment on above: Order Comment: Call MD with results STAT Performed By: #### L 501.9520, L500.2500, L501.2300 ####[facility] [address] [place], [address] Creatinine [Mass/Vol] 0.61 mg/dL Normal 0.55-1.02 [facility] Comment on above: Order Comment: Call MD with results STAT Result Comment: The validity of the calculated GFR GFRAA in patients over70 years has not been determined. Clinical correlation isessential. Performed By: #### L 501.9520, L500.2500, L501.2300 ####[facility] [address] [place], [address] ECRCL 140.93 ml/min Normal [facility] Comment on above: Order Comment: Call MD with results STAT Performed By: #### L 501.9520, L500.2500, L501.2300 ####[facility] [address] [place], [address] EST GFR - AA 149 mL/min Normal >60 [facility] Comment on above: Order Comment: Call MD with results STAT Result Comment: Afri can Brazilian GFR Calc Performed By: #### L 501.9520, L500.2500, L501.2300 ####[facility] [address] [place], [address] GAP 5 Normal 5-15 [facility] Comment on above: Order Comment: Call MD with results STAT Performed By: #### L 501.9520, L500.2500, L501.2300 ####[facility] [address] [place], [address] GFR/1.73 sq M.predicted among non-blacks MDRD (S/P/Bld) [Vol rate/Area] 123 mL/min/{1.73_m2} Normal >60 [facility] Comment on above: Order Comment: Call MD with results STAT Result Comment: Non- GFR Calc Performed By: #### L 501.9520, L500.2500, L501.2300 ####[facility] [address] [place], [address] Glucose [Mass/Vol] 193 mg/dL High 74-106 [facility] [facility] Comment on above: Order Comment: Call MD with results STAT Result Comment: Fast ing Glucose result greater than or equal to 126 mg/dLsuggests DIABETES MELLITUS per A.D.A. criteria. Performed By: #### L 501.9520, L500.2500, L501.2300 ####[facility] [address] [place], [address] Potassium [Moles/Vol] 4.5 mmol/L Normal 3.5-5.1 [facility] Comment on above: Order Comment: Call MD with results STAT Result Comment: Slig ht Hemolysis, Result may be falsely increased. Performed By: #### L 501.9520, L500.2500, L501.2300 ####[facility] [address] [place], [address] Sodium [Moles/Vol] 140 mmol/L Normal 136-145 [facility] Comment on above: Order Comment: Call MD with results STAT Performed By: #### L 501.9520, L500.2500, L501.2300 ####[facility] [address] [place], [address] Urea nitrogen [Mass/Vol] 6 mg/dL Low 7-18 [facility] Comment on above: Order Comment: Call MD with results STAT Performed By: #### L 501.9520, L500.2500, L501.2300 ####[facility] [address] [place], [address] BUN Normal 7-18 [facility] Comment on above: Order Comment: Call MD with results STAT Result Comment: @NOT NEEDED BY MADISON BONDING MACHINE TENDER Performed By: #### L 500.2500 ####[facility] [address] [place], [address] BUN/CRE Normal 10-20 [facility] Comment on above: Order Comment: Call with results STAT Result Comment: @NOT NEEDED BY [employer] BONDING MACHINE TENDER Performed By: #### L 500.2500 ####[facility] [address] [place], [address] CA,Total Normal 8.5-10.1 [facility] Comment on above: Order Comment: Call MD with results STAT Result Comment: @NOT NEEDED BY ROLANR2 BONDING MACHINE TENDER Performed By: #### L 500.2500 ####[facility] [address] [place], [address] CL Normal 98-107 [facility] Comment on above: Order Comment: Call MD with results STAT Result Comment: @NOT NEEDED BY PETRONAR2 BONDING MACHINE TENDER Performed By: #### L 500.2500 ####[facility] [address] [place], [address] CO2 Normal 21.0-32.0 [facility] Comment on above: Order Comment: Call MD with results STAT Result Comment: @NOT NEEDED BY TMPETRONAR2 BONDING MACHINE TENDER Performed By: #### L 500.2500 ####[facility] [address] [place], [address] CREAT,SERUM Normal 0.55-1.02 [facility] Comment on above: Order Comment: Call MD with results STAT Result Comment: @NOT NEEDED BY TMPETRONAR2 BONDING MACHINE TENDER Performed By: #### L 500.2500 ####[facility] [address] [place], [address] EST GFR Normal >60 [facility] Comment on above: Order Comment: Call MD with results STAT Result Comment: @NOT NEEDED BY PETRONAR2 BONDING MACHINE TENDER Performed By: #### L 500.2500 ####[facility] [address] [place], [address] EST GFR - AA Normal >60 [facility] Comment on above: Order Comment: Call MD with results STAT Result Comment: @NOT NEEDED BY PETRONAR2 BONDING MACHINE TENDER Performed By: #### L 500.2500 ####[facility] [address] [place], [address] GAP Normal 5-15 [facility] Comment on above: Order Comment: Call MD with results STAT Result Comment: @NOT NEEDED BY ROLANR2 BONDING MACHINE TENDER Performed By: #### L 500.2500 ####[facility] [address] [place], [address] GLU Normal 74-106 [facility] Comment on above: Order Comment: Call MD with results STAT Result Comment: @NOT NEEDED BY TMILLER2 BONDING MACHINE TENDER Performed By: #### L 500.2500 ####[facility] [address] [place], [address] Potassium Normal 3.5-5.1 [facility] Comment on above: Order Comment: Call MD with results STAT Result Comment: @NOT NEEDED BY ROLANR2 BONDING MACHINE TENDER Performed By: #### L 500.2500 ####[facility] [address] [place], [address] Basic Metabolic Profile (BMP) Normal 136-145 [facility] Comment on above: Order Comment: Call MD with results STAT Result Comment: @NOT NEEDED BY [employer] BONDING MACHINE TENDER Performed By: #### L 500.2500 ####[facility] [address] [place], [address] Bedside Glucoseon 08-03-2024 FINGERSTICK GLU 212 mg/dL High 74-106 [facility] Comment on above: Result Comment: EDGAR GEMENT OF PATIENT CARE PER NURSING PROTOCOL Performed By: #### L 501.080 ####[facility] [address] [place], [address] FINGERSTICK GLU 256 mg/dL High 74-106 [facility] Comment on above: Result Comment: EDGAR GEMENT OF PATIENT CARE PER NURSING PROTOCOL Performed By: #### L 501.080 ####[facility] [address] [place], [address] FINGERSTICK GLU 153 mg/dL High 74-106 [facility] Comment on above: Result Comment: EDGAR GEMENT OF PATIENT CARE PER NURSING PROTOCOL Performed By: #### L 501.080 ####[facility] [address] [place], [address] Discharge Instructionon 12-0 Discharge Instruction Normal [facility] Phosphoruson 08-03-2024 Phosphate [Mass/Vol] 1.8 mg/dL Low 2.5-4.9 [facility] Comment on above: Order Comment: Call MD with results STAT Performed By: #### L 501.9520, L500.2500, L501.2300 ####[facility] [address] [place], [address] Thyroid Stim Hormone (TSH)on 08-03-2024 TSH 2.360 uIU/mL Normal 0.358-3.740 [facility] Comment on above: Order Comment: Call MD with results STAT Performed By: #### L 501.9520, L500.2500, L501.2300 ####[facility] [address] [place], [address] Acetone Serumon 08-02-2024 ACETONE SERUM Negative Normal NEG [facility] Comment on above: Performed By: #### L 501.6900 ####[facility] [address] [place], [address] ACETONE SERUM SMALL Abnormal NEG [facility] Comment on above: Result Comment: RESU LTS CALLED TO [facility] 08/02/24 0107 Jhoana Martínez.REPORT READ BACK BY SAME. Performed By: #### L 501.2450, L501.5200, L500.3400, L700.6800, L500.2500, L501.6900, L503.6005, L100.0100 ####[facility] [address] [place], [address] Basic Metabolic Profile (BMP )on 08-02-2024 BUN Normal 7-18 [facility] Comment on above: Order Comment: Call MD with results STAT Result Comment: @NOT NEEDED BY MADISON BONDING MACHINE TENDER Performed By: #### L 500.2500 ####[facility] [address] [place], [address] BUN/CRE Normal 10-20 [facility] Comment on above: Order Comment: Call MD with results STAT Result Comment: @NOT NEEDED BY MADISON BONDING MACHINE TENDER Performed By: #### L 500.2500 ####[facility] [address] [place], [address] CA,Total Normal 8.5-10.1 [facility] Comment on above: Order Comment: Call MD with results STAT Result Comment: @NOT NEEDED BY ROLANR2 BONDING MACHINE TENDER Performed By: #### L 500.2500 ####[facility] [address] [place], [address] CL Normal 98-107 [facility] Comment on above: Order Comment: Call MD with results STAT Result Comment: @NOT NEEDED BY ROLANR2 BONDING MACHINE TENDER Performed By: #### L 500.2500 ####[facility] [address] [place], [address] CO2 Normal 21.0-32.0 [facility] Comment on above: Order Comment: Call MD with results STAT Result Comment: @NOT NEEDED BY PETRONAR2 BONDING MACHINE TENDER Performed By: #### L 500.2500 ####[facility] [address] [place], [address] CREAT,SERUM Normal 0.55-1.02 [facility] Comment on above: Order Comment: Call MD with results STAT Result Comment: @NOT NEEDED BY ROLANR2 BONDING MACHINE TENDER Performed By: #### L 500.2500 ####[facility] [address] [place], [address] EST GFR Normal >60 [facility] Comment on above: Order Comment: Call with results STAT Result Comment: @NOT NEEDED BY ROLANR2 BONDING MACHINE TENDER Performed By: #### L 500.2500 ####[facility] [address] [place], [address] EST GFR - AA Normal >60 [facility] Comment on above: Order Comment: Call MD with results STAT Result Comment: @NOT NEEDED BY TMPETRONAR2 BONDING MACHINE TENDER Performed By: #### L 500.2500 ####[facility] [address] [place], [address] GAP Normal 5-15 [facility] Comment on above: Order Comment: Call MD with results STAT Result Comment: @NOT NEEDED BY TMPETRONAR2 BONDING MACHINE TENDER Performed By: #### L 500.2500 ####[facility] [address] [place], [address] GLU Normal 74-106 [facility] Comment on above: Order Comment: Call MD with results STAT Result Comment: @NOT NEEDED BY TMILLER2 BONDING MACHINE TENDER Performed By: #### L 500.2500 ####[facility] [address] [place], [address] Potassium Normal 3.5-5.1 [facility] Comment on above: Order Comment: Call MD with results STAT Result Comment: @NOT NEEDED BY TMPETRONAR2 BONDING MACHINE TENDER Performed By: #### L 500.2500 ####[facility] [address] [place], [address] Basic Metabolic Profile (BMP) Normal 136-145 [facility] Comment on above: Order Comment: Call MD with results STAT Result Comment: @NOT NEEDED BY PETRONAR2 BONDING MACHINE TENDER Performed By: #### L 500.2500 ####[facility] [address] [place], [address] BUN Normal 7-18 [facility] Comment on above: Order Comment: Call MD with results STAT Result Comment: @NOT NEEDED BY TMPETRONAR2 BONDING MACHINE TENDER Performed By: #### L 500.2500 ####[facility] [address] [place], [address] BUN/CRE Normal 10-20 [facility] Comment on above: Order Comment: Call MD with results STAT Result Comment: @NOT NEEDED BY TMPETRONAR2 BONDING MACHINE TENDER Performed By: #### L 500.2500 ####[facility] [address] [place], [address] CA,Total Normal 8.5-10.1 [facility] Comment on above: Order Comment: Call MD with results STAT Result Comment: @NOT NEEDED BY TMILLER2 BONDING MACHINE TENDER Performed By: #### L 500.2500 ####[facility] [address] [place], [address] CL Normal 98-107 [facility] Comment on above: Order Comment: Call MD with results STAT Result Comment: @NOT NEEDED BY ROLANR2 BONDING MACHINE TENDER Performed By: #### L 500.2500 ####[facility] [address] [place], [address] CO2 Normal 21.0-32.0 [facility] Comment on above: Order Comment: Call MD with results STAT Result Comment: @NOT NEEDED BY ROLANR2 BONDING MACHINE TENDER Performed By: #### L 500.2500 ####[facility] [address] [place], [address] CREAT,SERUM Normal 0.55-1.02 [facility] Comment on above: Order Comment: Call MD with results STAT Result Comment: @NOT NEEDED BY ROLANR2 BONDING MACHINE TENDER Performed By: #### L 500.2500 ####[facility] [address] [place], [address] EST GFR Normal >60 [facility] Comment on above: Order Comment: Call MD with results STAT Result Comment: @NOT NEEDED BY ROLANR2 BONDING MACHINE TENDER Performed By: #### L 500.2500 ####[facility] [address] [place], [address] EST GFR - AA Normal >60 [facility] Comment on above: Order Comment: Call MD with results STAT Result Comment: @NOT NEEDED BY ROLANR2 BONDING MACHINE TENDER Performed By: #### L 500.2500 ####[facility] [address] [place], [address] GAP Normal 5-15 [facility] Comment on above: Order Comment: Call MD with results STAT Result Comment: @NOT NEEDED BY TMPETRONAR2 BONDING MACHINE TENDER Performed By: #### L 500.2500 ####[facility] [address] [place], [address] GLU Normal 74-106 [facility] Comment on above: Order Comment: Call MD with results STAT Result Comment: @NOT NEEDED BY ROLANR2 BONDING MACHINE TENDER Performed By: #### L 500.2500 ####[facility] [address] [place], [address] Potassium Normal 3.5-5.1 [facility] Comment on above: Order Comment: Call MD with results STAT Result Comment: @NOT NEEDED BY TMPETRONAR2 BONDING MACHINE TENDER Performed By: #### L 500.2500 ####[facility] [address] [place], [address] Basic Metabolic Profile (BMP) Normal 136-145 [facility] Comment on above: Order Comment: Call MD with results STAT Result Comment: @NOT NEEDED BY ROLANR2 BONDING MACHINE TENDER Performed By: #### L 500.2500 ####[facility] [address] [place], [address] BUN/CRE 11.7 RATIO Normal 10-20 [facility] Comment on above: Order Comment: Call MD with results STAT Performed By: #### L 500.2500 ####[facility] [address] [place], [address] CA,Total 7.7 mg/dL Low 8.5-10.1 [facility] Comment on above: Order Comment: Call MD with results STAT Performed By: #### L 500.2500 ####[facility] [address] [place], [address] Chloride [Moles/Vol] 116 mmol/L High 98-107 [facility] Comment on above: Order Comment: Call MD with results STAT Performed By: #### L 500.2500 ####[facility] [address] [place], [address] CO2 [Moles/Vol] 21.0 mmol/L Normal 21.0-32.0 [facility] Comment on above: Order Comment: Call MD with results STAT Performed By: #### L 500.2500 ####[facility] [address] [place], [address] Creatinine [Mass/Vol] 0.68 mg/dL Normal 0.55-1.02 [facility] Comment on above: Order Comment: Call MD with results STAT Result Comment: The validity of the calculated GFR GFRAA in patients over70 years has not been determined. Clinical correlation isessential. Performed By: #### L 500.2500 ####[facility] [address] [place], [address] ECRCL 126.42 ml/min Normal [facility] Comment on above: Order Comment: Call MD with results STAT Performed By: #### L 500.2500 ####[facility] [address] [place], [address] EST GFR - AA 130 mL/min Normal >60 [facility] Comment on above: Order Comment: Call MD with results STAT Result Comment: Afri can Brazilian GFR Calc Performed By: #### L 500.2500 ####[facility] [address] [place], [address] GAP 5 Normal 5-15 [facility] Comment on above: Order Comment: Call MD with results STAT Performed By: #### L 500.2500 ####[facility] [address] [place], [address] GFR/1.73 sq M.predicted among non-blacks MDRD (S/P/Bld) [Vol rate/Area] 107 mL/min/{1.73_m2} Normal >60 [facility] Comment on above: Order Comment: Call MD with results STAT Result Comment: Non- GFR Calc Performed By: #### L 500.2500 ####[facility] [address] [place], [address] Glucose [Mass/Vol] 116 mg/dL High 74-106 [facility] Comment on above: Order Comment: Call MD with results STAT Result Comment: Fast ing Glucose result from 100 to 125 mg/dLsuggests IMPAIRED HOMEOSTASIS per A.D.A. criteria. Performed By: #### L 500.2500 ####[facility] [address] [place], [address] Potassium [Moles/Vol] 3.8 mmol/L Normal 3.5-5.1 [facility] Comment on above: Order Comment: Call MD with results STAT Performed By: #### L 500.2500 ####[facility] [address] [place], [address] Sodium [Moles/Vol] 141 mmol/L Normal 136-145 [facility] Comment on above: Order Comment: Call MD with results STAT Performed By: #### L 500.2500 ####[facility] [address] [place], [address] Urea nitrogen [Mass/Vol] 8 mg/dL Normal 7-18 [facility] Comment on above: Order Comment: Call MD with results STAT Performed By: #### L 500.2500 ####[facility] [address] [place], [address] BUN Normal 7-18 [facility] Comment on above: Order Comment: Call MD with results STAT Result Comment: NO S PECIMEN DRAWN Performed By: #### L 500.2500 ####[facility] [address] [place], [address] BUN/CRE Normal 10-20 [facility] Comment on above: Order Comment: Call MD with results STAT Result Comment: NO S PECIMEN DRAWN Performed By: #### L 500.2500 ####[facility] [address] [place], [address] CA,Total Normal 8.5-10.1 [facility] Comment on above: Order Comment: Call MD with results STAT Result Comment: NO S PECIMEN DRAWN Performed By: #### L 500.2500 ####[facility] [address] [place], [address] CL Normal 98-107 [facility] Comment on above: Order Comment: Call MD with results STAT Result Comment: NO S PECIMEN DRAWN Performed By: #### L 500.2500 ####[facility] [address] [place], [address] CO2 Normal 21.0-32.0 [facility] Comment on above: Order Comment: Call MD with results STAT Result Comment: NO S PECIMEN DRAWN Performed By: #### L 500.2500 ####[facility] [address] [place], [address] CREAT,SERUM Normal 0.55-1.02 [facility] Comment on above: Order Comment: Call MD with results STAT Result Comment: NO S PECIMEN DRAWN Performed By: #### L 500.2500 ####[facility] [address] [place], [address] EST GFR Normal >60 [facility] Comment on above: Order Comment: Call MD with results STAT Result Comment: NO S PECIMEN DRAWN Performed By: #### L 500.2500 ####[facility] [address] [place], [address] EST GFR - AA Normal >60 [facility] Comment on above: Order Comment: Call MD with results STAT Result Comment: NO S PECIMEN DRAWN Performed By: #### L 500.2500 ####[facility] [address] [place], [address] GAP Normal 5-15 [facility] Comment on above: Order Comment: Call MD with results STAT Result Comment: NO S PECIMEN DRAWN Performed By: #### L 500.2500 ####[facility] [address] [place], [address] GLU Normal 74-106 [facility] Comment on above: Order Comment: Call MD with results STAT Result Comment: NO S PECIMEN DRAWN Performed By: #### L 500.2500 ####[facility] [address] [place], [address] Potassium Normal 3.5-5.1 [facility] Comment on above: Order Comment: Call MD with results STAT Result Comment: NO S PECIMEN DRAWN Performed By: #### L 500.2500 ####[facility] [address] [place], [address] Basic Metabolic Profile (BMP) Normal 136-145 [facility] Comment on above: Order Comment: Call MD with results STAT Result Comment: NO S PECIMEN DRAWN Performed By: #### L 500.2500 ####[facility] [address] [place], [address] BUN Normal 7-18 [facility] Comment on above: Order Comment: Call MD with results STAT Result Comment: NO S PECIMEN DRAWN Performed By: #### L 501.9985, L500.2500 ####[facility] [address] [place], [address] BUN/CRE Normal 10-20 [facility] Comment on above: Order Comment: Call MD with results STAT Result Comment: NO S PECIMEN DRAWN Performed By: #### L 501.9985, L500.2500 ####[facility] [address] [place], [address] CA,Total Normal 8.5-10.1 [facility] Comment on above: Order Comment: Call MD with results STAT Result Comment: NO S PECIMEN DRAWN Performed By: #### L 501.9985, L500.2500 ####[facility] [address] [place], [address] CL Normal 98-107 [facility] Comment on above: Order Comment: Call MD with results STAT Result Comment: NO S PECIMEN DRAWN Performed By: #### L 501.9985, L500.2500 ####[facility] [address] [place], [address] CO2 Normal 21.0-32.0 [facility] Comment on above: Order Comment: Call MD with results STAT Result Comment: NO S PECIMEN DRAWN Performed By: #### L 501.9985, L500.2500 ####[facility] [address] [place], [address] CREAT,SERUM Normal 0.55-1.02 [facility] Comment on above: Order Comment: Call MD with results STAT Result Comment: NO S PECIMEN DRAWN Performed By: #### L 501.9985, L500.2500 ####[facility] [address] [place], [address] EST GFR Normal >60 [facility] Comment on above: Order Comment: Call MD with results STAT Result Comment: NO S PECIMEN DRAWN Performed By: #### L 501.9985, L500.2500 ####[facility] [address] [place], [address] EST GFR - AA Normal >60 [facility] Comment on above: Order Comment: Call MD with results STAT Result Comment: NO S PECIMEN DRAWN Performed By: #### L 501.9985, L500.2500 ####[facility] [address] [place], [address] GAP Normal 5-15 [facility] Comment on above: Order Comment: Call MD with results STAT Result Comment: NO S PECIMEN DRAWN Performed By: #### L 501.9985, L500.2500 ####[facility] [address] [place], [address] GLU Normal 74-106 [facility] Comment on above: Order Comment: Call MD with results STAT Result Comment: NO S PECIMEN DRAWN Performed By: #### L 501.9985, L500.2500 ####[facility] [address] [place], [address] Potassium Normal 3.5-5.1 [facility] Comment on above: Order Comment: Call MD with results STAT Result Comment: NO S PECIMEN DRAWN Performed By: #### L 501.9985, L500.2500 ####[facility] [address] [place], [address] Basic Metabolic Profile (BMP) Normal 136-145 [facility] Comment on above: Order Comment: Call MD with results STAT Result Comment: NO S PECIMEN DRAWN Performed By: #### L 501.9985, L500.2500 ####[facility] [address] [place], [address] BUN/CRE 16.6 RATIO Normal 10-20 [facility] Comment on above: Performed By: #### L 501.2450, L501.5200, L500.3400, L700.6800, L500.2500, L501.6900, L503.6005, L100.0100 ####[facility] [address] [place], [address] CA,Total 8.9 mg/dL Normal 8.5-10.1 [facility] Comment on above: Performed By: #### L 501.2450, L501.5200, L500.3400, L700.6800, L500.2500, L501.6900, L503.6005, L100.0100 ####[facility] [address] [place], [address] Chloride [Moles/Vol] 107 mmol/L Normal 98-107 [facility] Comment on above: Performed By: #### L 501.2450, L501.5200, L500.3400, L700.6800, L500.2500, L501.6900, L503.6005, L100.0100 ####[facility] [address] [place], [address] CO2 [Moles/Vol] 17.0 mmol/L Low 21.0-32.0 [facility] Comment on above: Performed By: #### L 501.2450, L501.5200, L500.3400, L700.6800, L500.2500, L501.6900, L503.6005, L100.0100 ####[facility] [address] [place], [address] Creatinine [Mass/Vol] 0.84 mg/dL Normal 0.55-1.02 [facility] Comment on above: Result Comment: The validity of the calculated GFR GFRAA in patients over70 years has not been determined. Clinical correlation isessential. Performed By: #### L 501.2450, L501.5200, L500.3400, L700.6800, L500.2500, L501.6900, L503.6005, L100.0100 ####[facility] [address] [place], [place], [id number] ECRCL 102.34 ml/min Normal [facility] Comment on above: Performed By: #### L 501.2450, L501.5200, L500.3400, L700.6800, L500.2500, L501.6900, L503.6005, L100.0100 ####[facility] [address] [place], [address] EST GFR - AA 102 mL/min Normal >60 [facility] Comment on above: Result Comment: Afri can Brazilian GFR Calc Performed By: #### L 501.2450, L501.5200, L500.3400, L700.6800, L500.2500, L501.6900, L503.6005, L100.0100 ####[facility] [address] [place], [address] GAP 14 Normal 5-15 [facility] Comment on above: Performed By: #### L 501.2450, L501.5200, L500.3400, L700.6800, L500.2500, L501.6900, L503.6005, L100.0100 ####[facility] [address] [place], [address] GFR/1.73 sq M.predicted among non-blacks MDRD (S/P/Bld) [Vol rate/Area] 84 mL/min/{1.73_m2} Normal >60 [facility] Comment on above: Result Comment: Non- GFR Calc Performed By: #### L 501.2450, L501.5200, L500.3400, L700.6800, L500.2500, L501.6900, L503.6005, L100.0100 ####[facility] [address] [place], [address] Glucose [Mass/Vol] 253 mg/dL High 74-106 [facility] Comment on above: Result Comment: Gluc ose result greater than or equal to 200 mg/dLsuggests DIABETES MELLITUS per A.D.A. criteria. Performed By: #### L 501.2450, L501.5200, L500.3400, L700.6800, L500.2500, L501.6900, L503.6005, L100.0100 ####[facility] [address] [place], [address] Potassium [Moles/Vol] 3.4 mmol/L Low 3.5-5.1 [facility] Comment on above: Performed By: #### L 501.2450, L501.5200, L500.3400, L700.6800, L500.2500, L501.6900, L503.6005, L100.0100 ####[facility] [address] [place], [address] Sodium [Moles/Vol] 139 mmol/L Normal 136-145 [facility] Comment on above: Performed By: #### L 501.2450, L501.5200, L500.3400, L700.6800, L500.2500, L501.6900, L503.6005, L100.0100 ####[facility] [address] [place], [address] Urea nitrogen [Mass/Vol] 14 mg/dL Normal 7-18 [facility] Comment on above: Performed By: #### L 501.2450, L501.5200, L500.3400, L700.6800, L500.2500, L501.6900, L503.6005, L100.0100 ####[facility] [address] [place], [address] Bedside Glucoseon 08-02-2024 FINGERSTICK GLU 246 mg/dL High 74-106 [facility] Comment on above: Result Comment: EDGAR GEMENT OF PATIENT CARE PER NURSING PROTOCOL Performed By: #### L 501.080 ####[facility] [address] [place], [address] FINGERSTICK GLU 77 mg/dL Normal 74-106 [facility] Comment on above: Result Comment: EDGAR GEMENT OF PATIENT CARE PER NURSING PROTOCOL Performed By: #### L 501.080 ####[facility] [address] [place], [address] FINGERSTICK GLU 90 mg/dL Normal 74-106 [facility] Comment on above: Result Comment: EDGAR GEMENT OF PATIENT CARE PER NURSING PROTOCOL Performed By: #### L 501.080 ####[facility] [address] [place], [address] FINGERSTICK GLU 163 mg/dL High 74-106 [facility] Comment on above: Result Comment: EDGAR GEMENT OF PATIENT CARE PER NURSING PROTOCOL Performed By: #### L 501.080 ####[facility] [address] [place], [address] FINGERSTICK GLU 102 mg/dL Normal 74-106 [facility] Comment on above: Result Comment: EDGAR GEMENT OF PATIENT CARE PER NURSING PROTOCOL Performed By: #### L 501.080 ####[facility] [address] [place], [address] FINGERSTICK GLU 147 mg/dL High 74-106 [facility] Comment on above: Result Comment: EDGAR GEMENT OF PATIENT CARE PER NURSING PROTOCOL Performed By: #### L 501.080 ####[facility] [address] [place], [address] FINGERSTICK GLU 83 mg/dL Normal 74-106 [facility] Comment on above: Result Comment: EDGAR GEMENT OF PATIENT CARE PER NURSING PROTOCOL Performed By: #### L 501.080 ####[facility] [address] [place], [address] FINGERSTICK GLU 121 mg/dL High 74-106 [facility] Comment on above: Result Comment: EDGRA GEMENT OF PATIENT CARE PER NURSING PROTOCOL Performed By: #### L 501.080 ####[facility] [address] [place], [address] FINGERSTICK GLU 95 mg/dL Normal 74-106 [facility] Comment on above: Result Comment: EDGAR GEMENT OF PATIENT CARE PER NURSING PROTOCOL Performed By: #### L 501.080 ####[facility] [address] [place], [address] FINGERSTICK GLU 123 mg/dL High 74-106 [facility] Comment on above: Result Comment: EDGAR GEMENT OF PATIENT CARE PER NURSING PROTOCOL Performed By: #### L 501.080 ####[facility] [address] [place], [address] FINGERSTICK GLU 147 mg/dL High 74-106 [facility] Comment on above: Result Comment: EDGAR GEMENT OF PATIENT CARE PER NURSING PROTOCOL Performed By: #### L 501.080 ####[facility] [address] [place], [address] FINGERSTICK GLU 263 mg/dL High 74-106 [facility] Comment on above: Result Comment: EDGAR GEMENT OF PATIENT CARE PER NURSING PROTOCOL Performed By: #### L 501.080 ####[facility] [address] [place], [address] FINGERSTICK GLU 251 mg/dL High 74-106 [facility] Comment on above: Result Comment: EDGAR GEMENT OF PATIENT CARE PER NURSING PROTOCOL Performed By: #### L 501.080 ####[facility] [address] [place], [address] CBC W/Diff, Automatedon 12-0 -2023 Absolute Lymph 1.00 X10 3/uL Normal 0.83-4.51 [facility] Comment on above: Performed By: #### L 501.2450, L501.5200, L500.3400, L700.6800, L500.2500, L501.6900, L503.6005, L100.0100 ####[facility] [address] [place], [address] Absolute Neut 11.9 X10 3/uL High 2.0-7.7 [facility] Comment on above: Performed By: #### L 501.2450, L501.5200, L500.3400, L700.6800, L500.2500, L501.6900, L503.6005, L100.0100 ####[facility] [address] [place], [address] Basophils/100 WBC (Bld) 0.2 % Normal 0-1 [facility] Comment on above: Performed By: #### L 501.2450, L501.5200, L500.3400, L700.6800, L500.2500, L501.6900, L503.6005, L100.0100 ####[facility] [address] [place], [address] Eosinophils/100 WBC (Bld) 0.0 % Normal 0-5 [facility] Comment on above: Performed By: #### L 501.2450, L501.5200, L500.3400, L700.6800, L500.2500, L501.6900, L503.6005, L100.0100 ####[facility] [address] [place], [place], [id number](101) Erythrocyte distribution width (RBC) [Ratio] 12.3 % Normal 11.6-14.6 [facility] Comment on above: Performed By: #### L 501.2450, L501.5200, L500.3400, L700.6800, L500.2500, L501.6900, L503.6005, L100.0100 ####[facility] [address] [place], [address](145) Hematocrit (Bld) [Volume fraction] 38.3 % Normal 37-47 [facility] Comment on above: Performed By: #### L 501.2450, L501.5200, L500.3400, L700.6800, L500.2500, L501.6900, L503.6005, L100.0100 ####[facility] [address] [place], [address] Hemoglobin (Bld) [Mass/Vol] 13.0 g/dL Normal 12.0-15.0 [facility] Comment on above: Performed By: #### L 501.2450, L501.5200, L500.3400, L700.6800, L500.2500, L501.6900, L503.6005, L100.0100 ####[facility] [address] [place], [address] IG% 0.600 Normal 0.0-0.9 [facility] Comment on above: Result Comment: IG% - Immature Granulocytes (promyelocytes, myelocytes andmetamyelocytes) > 1% indicates that a LEFT SHIFT is Present. Performed By: #### L 501.2450, L501.5200, L500.3400, L700.6800, L500.2500, L501.6900, L503.6005, L100.0100 ####[facility] [address] [place], [address] Lymphocytes/100 WBC (Bld) 7.5 % Low 19-41 [facility] Comment on above: Performed By: #### L 501.2450, L501.5200, L500.3400, L700.6800, L500.2500, L501.6900, L503.6005, L100.0100 ####[facility] [address] [place], [address] MCH (RBC) [Entitic mass] 29.7 pg Normal 27.0-32.0 [facility] Comment on above: Performed By: #### L 501.2450, L501.5200, L500.3400, L700.6800, L500.2500, L501.6900, L503.6005, L100.0100 ####[facility] [address] [place], [address] MCHC (RBC) [Mass/Vol] 33.9 g/dL Normal 32-36 [facility] Comment on above: Performed By: #### L 501.2450, L501.5200, L500.3400, L700.6800, L500.2500, L501.6900, L503.6005, L100.0100 ####[facility] [address] [place], [address] MCV (RBC) [Entitic vol] 87.6 fL Normal 81-99 [facility] Comment on above: Performed By: #### L 501.2450, L501.5200, L500.3400, L700.6800, L500.2500, L501.6900, L503.6005, L100.0100 ####[facility] [address] [place], [address] Monocytes/100 WBC (Bld) 2.8 % Normal 0-10 [facility] Comment on above: Performed By: #### L 501.2450, L501.5200, L500.3400, L700.6800, L500.2500, L501.6900, L503.6005, L100.0100 ####[facility] [address] [place], [address] Neutrophils/100 WBC (Bld) 88.9 % High 47-70 [facility] Comment on above: Performed By: #### L 501.2450, L501.5200, L500.3400, L700.6800, L500.2500, L501.6900, L503.6005, L100.0100 ####[facility] [address] [place], [address] Nucleated RBC (Bld) [#/Vol] 0 10*3/uL Normal 0-5 [facility] Comment on above: Performed By: #### L 501.2450, L501.5200, L500.3400, L700.6800, L500.2500, L501.6900, L503.6005, L100.0100 ####[facility] [address] [place], [address] Platelet mean volume (Bld) [Entitic vol] 13.0 fL High 6.2-12.0 [facility] Comment on above: Performed By: #### L 501.2450, L501.5200, L500.3400, L700.6800, L500.2500, L501.6900, L503.6005, L100.0100 ####[facility] [address] [place], [address] Platelets (Bld) [#/Vol] 169 10*3/uL Normal 150-450 [facility] Comment on above: Performed By: #### L 501.2450, L501.5200, L500.3400, L700.6800, L500.2500, L501.6900, L503.6005, L100.0100 ####[facility] [address] [place], [address] RBC (Bld) [#/Vol] 4.37 10*6/uL Normal 4.2-5.4 [facility] Comment on above: Performed By: #### L 501.2450, L501.5200, L500.3400, L700.6800, L500.2500, L501.6900, L503.6005, L100.0100 ####[facility] [address] [place], [address] RDW SD 39.6 fl Normal 35.1-43.9 [facility] Comment on above: Performed By: #### L 501.2450, L501.5200, L500.3400, L700.6800, L500.2500, L501.6900, L503.6005, L100.0100 ####[facility] [address] [place], [address] WBC (Bld) [#/Vol] 13.4 10*3/uL High 4.4-11.0 [facility] Comment on above: Performed By: #### L 501.2450, L501.5200, L500.3400, L700.6800, L500.2500, L501.6900, L503.6005, L100.0100 ####[facility] [address] [place], [place], [id number] Emergency Department Summary on 08-02-2024 Emergency Department Summary Normal [facility] H AND P Exam - Hospitaliston 08-02-2024 H&P Exam - Hospitalist Normal [facility] Hemoglobin A1con 08-02-2024 HbA1c (Bld) [Mass fraction] 7.9 % High 3.8-5.6 [facility] Comment on above: Result Comment: Norm al < 5.7 % Prediabetic 5.7 - 6.4 % Diabetic >or= 6.5 % Please note range changes. Performed By: #### L 501.9985, L500.2500 ####[facility] [address] [place], [address] Kidney and Bladderon 024 Kidney and Bladder Normal [facility] Lactic Acidon 08-02-2024 Lactate [Moles/Vol] 1.4 mmol/L Normal 0.4-1.9 [facility] Comment on above: Performed By: #### L 503.6005 ####[facility] [address] [place], [address] Lactate [Moles/Vol] 0.9 mmol/L Normal 0.4-1.9 [facility] Comment on above: Order Comment: Y Performed By: #### L 503.6005 ####[facility] [address] [place], [address] Lactate [Moles/Vol] 2.2 mmol/L Invalid Interpretation Code 0.4-1.9 [facility] Comment on above: Order Comment: Y Result Comment: Crit ical Result(s) Called at: 01:06:13 08/02/2024 by:Jhoana Martínez lforrestResults read back by same. Performed By: #### L 501.2450, L501.5200, L500.3400, L700.6800, L500.2500, L501.6900, L503.6005, L100.0100 ####[facility] [address] [place], [address] Lipaseon 08-02-2024 Lipase [Catalytic activity/Vol] U/L Low 13-75 [facility] Comment on above: Result Comment: Sulma schmitz note:LIPASE revised reference range effective 22.New Lipase methodology. Expected to produce lower valuesthan the previous assay method.NEW Reference Range: 13 - 75 U/L Performed By: #### L 501.2450, L501.5200, L500.3400, L700.6800, L500.2500, L501.6900, L503.6005, L100.0100 ####[facility] [address] [place], [address] Liver Profileon 08-02-2024 Albumin [Mass/Vol] 4.1 g/dL Normal 3.2-5.0 [facility] Comment on above: Performed By: #### L 501.2450, L501.5200, L500.3400, L700.6800, L500.2500, L501.6900, L503.6005, L100.0100 ####[facility] [address] [place], [address] ALK P 78 U/L Normal 45-117 [facility] Comment on above: Performed By: #### L 501.2450, L501.5200, L500.3400, L700.6800, L500.2500, L501.6900, L503.6005, L100.0100 ####[facility] [address] [place], [address] ALT [Catalytic activity/Vol] 15 U/L Normal 13-56 [facility] Comment on above: Performed By: #### L 501.2450, L501.5200, L500.3400, L700.6800, L500.2500, L501.6900, L503.6005, L100.0100 ####[facility] [address] [place], [address] AST [Catalytic activity/Vol] 13 U/L Low 15-37 [facility] Comment on above: Performed By: #### L 501.2450, L501.5200, L500.3400, L700.6800, L500.2500, L501.6900, L503.6005, L100.0100 ####[facility] [address] [place], [address] Bilirubin [Mass/Vol] 1.20 mg/dL High 0.20-1.00 [facility] Comment on above: Result Comment: For patients on eltrombopag therapy, use of Dimension Liberty TBIL is not recommended. Performed By: #### L 501.2450, L501.5200, L500.3400, L700.6800, L500.2500, L501.6900, L503.6005, L100.0100 ####[facility] [address] [place], [address] Bilirubin.direct [Mass/Vol] 0.38 mg/dL High 0.00-0.30 [facility] Comment on above: Performed By: #### L 501.2450, L501.5200, L500.3400, L700.6800, L500.2500, L501.6900, L503.6005, L100.0100 ####[facility] [address] [place], [address] Globulin (S) [Mass/Vol] 3.3 g/dL Normal 2.2-4.2 [facility] Comment on above: Performed By: #### L 501.2450, L501.5200, L500.3400, L700.6800, L500.2500, L501.6900, L503.6005, L100.0100 ####[facility] [address] [place], [address] T PROT 7.4 g/dL Normal 6.4-8.2 [facility] Comment on above: Performed By: #### L 501.2450, L501.5200, L500.3400, L700.6800, L500.2500, L501.6900, L503.6005, L100.0100 ####[facility] [address] [place], [address] Magnesiumon 08-02-2024 Magnesium [Mass/Vol] 2.5 mg/dL Normal 1.6-2.6 [facility] Comment on above: Performed By: #### L 501.2300, L501.5200 ####[facility] [address] [place], [address] Magnesium [Mass/Vol] 1.5 mg/dL Low 1.6-2.6 [facility] Comment on above: Performed By: #### L 501.2450, L501.5200, L500.3400, L700.6800, L500.2500, L501.6900, L503.6005, L100.0100 ####[facility] [address] [place], [address] Phosphoruson 08-02-2024 Phosphate [Mass/Vol] 2.2 mg/dL Low 2.5-4.9 [facility] Comment on above: Performed By: #### L 501.2300, L501.5200 ####[facility] [address] [place], [address] ,Serum,hCG Quali.on 08-02-2024 HCG, SERUM QUAL Negative Normal [facility] Comment on above: Performed By: #### L 501.2450, L501.5200, L500.3400, L700.6800, L500.2500, L501.6900, L503.6005, L100.0100 ####[facility] [address] [place], [address] Urinalysis, Completeon 08-02 BACTERIA 1+ /hpf Normal None Seen [facility] Comment on above: Order Comment: CLEAN CATCH Performed By: #### L 400.0001 ####[facility] [address] [place], [address] EPI,SQUAMOUS 0-5 SEEN Normal 5-10 [facility] Comment on above: Order Comment: CLEAN CATCH Performed By: #### L 400.0001 ####[facility] [address] [place], [address] WBC 0-5 SEEN Normal 0-5 [facility] Comment on above: Order Comment: CLEAN CATCH Performed By: #### L 400.0001 ####[facility] [address] [place], [address] Mucus Ql (Urine sed) 0 SEEN Normal [facility] Comment on above: Order Comment: CLEAN CATCH Performed By: #### L 400.0001 ####[facility] [address] [place], [address] RBC 0 SEEN Normal 0-5 [facility] Comment on above: Order Comment: CLEAN CATCH Performed By: #### L 400.0001 ####[facility] [address] [facility] [address] Urine Drug Screen (VISTA)on 08-02-2024 AMPHETAMINES Negative Normal <1000 ng/mL [facility] Comment on above: Performed By: #### L 505.5000 ####[facility] [address] [place], [address] BARBITIURATES Negative Normal < 200 ng/mL [facility] Comment on above: Performed By: #### L 505.5000 ####[facility] [address] [facility] [address] BENZODIAZIPINE Negative Normal < 200 ng/mL [facility] Comment on above: Performed By: #### L 505.5000 ####[facility] [address] [facility] [address] COCAINE Negative Normal < 300 ng/mL [facility] Comment on above: Performed By: #### L 505.5000 ####[facility] [address] [place] [id number] ECSTACY Negative Normal < 500 ng/mL [facility] Comment on above: Performed By: #### L 505.5000 ####[facility] [address] [place], [address] METHADONE Negative Normal < 300 ng/mL [facility] Comment on above: Performed By: #### L 505.5000 ####[facility] [address] [place], [address] OPIATES Negative Normal < 300 ng/mL [facility] Comment on above: Performed By: #### L 505.5000 ####[facility] [address] [place], [address] PCP Negative Normal < 25 ng/mL [facility] Comment on above: Performed By: #### L 505.5000 ####[facility] [address] [place], [address] THC Positive Abnormal < 50 ng/mL [facility] Comment on above: Performed By: #### L 505.5000 ####[facility] [address] [place], [address] VISTA UDS PH 5 Normal [facility] Comment on above: Performed By: #### L 505.5000 ####[facility] [address] [place], [address] Venous Blood Gason 4 Blood Gas Type ISABELLE Normal [facility] Comment on above: Performed By: #### L 9000.0810 ####[facility] [address] [place], [address] CO2 [Moles/Vol] 17 mmol/L Low 23-33 [facility] Comment on above: Performed By: #### L 9000.0810 ####[facility] [address] [place], [address] HCO3 (Bld) [Moles/Vol] 16 mmol/L Low 22-26 [facility] Comment on above: Performed By: #### L 9000.0810 ####[facility] [address] [place], [address] O2 Delivery Dev Room Air Normal [facility] Comment on above: Performed By: #### L 9000.0810 ####[facility] [address] [place], [address] SITE Not entered [facility] Comment on above: Performed By: #### L 9000.0810 ####[facility] [address] [place], [address] VBG BE -9 mmol/L Low -1.0-3.5 [facility] Comment on above: Performed By: #### L 9000.0810 ####[facility] [address] [place], [address] VBG pCO2 28.0 mmHg Low 41-51 [facility] Comment on above: Performed By: #### L 9000.0810 ####[facility] [address] [place], [address] VBG pH 7.38 Normal 7.32-7.42 [facility] Comment on above: Performed By: #### L 9000.0810 ####[facility] [address] [place], [address] VBG PO2 46 mmHg High 25-40 [facility] Comment on above: Performed By: #### L 9000.0810 ####[facility] [address] [place], [address] VBG SO2 82 High 50-70 [facility] Comment on above: Performed By: #### L 9000.0810 ####[facility] [address] [place], [address] Chest PA and Lateralon 12-05 -2024 Chest PA and Lateral Normal [facility] Emergency Department Summary on 08-01-2024 Emergency Department Summary Normal [facility] CNNURSEon 07-23-2024 CNNURSE Nurse Visit (ENDIMT) KATHLEEN VILLA ([id number]) 1995 F CHT Date Time Provider Department 07/23/24 9:00 AM VAMSI CARSON During your visit today, we recorded the following information about you: Vamsi Carson RN 07/23/2024 9:04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 unable to retrieve. Patient states that she is currently using a loaner pump through [employer], that she will be billed $3,600 for. Patient is agreeable to any pump suggestions from provider. Insurance states she will have coverage for pumps, except for [employer]. Patient is also in need of a refill of Insulin Lispro. [email or web address] in office Please advise Jessica Guerrero APRN.FRIEDA 06/25/2024 1:58 PM Signed I recommend she sees nutrition educator to review pump options- I am fine with Omnipod or Tandem pumps both are good options, but I want to make sure this is something that works well for her. I recommend she switches to MDI for now: Lantus 43 units daily Novolog 1 unit of insulin for every 10 grams of carbs and sliding scale 1 with meals ADMINISTER SUPPLEMENTAL INSULIN REGARDLESS OF MEAL OR NUTRITION INTAKE: If Blood Glucose (mg/dL) is <110 Give 0 units 111-150 Give 0 units 151-200 Give 1 unit 201-250 Give 2 units 251-300 Give 3 units 301-350 Give 4 units 351-400 Give 5 units >400 give 5 units and notify provider. Refills for both have been sent in. Please let me know if any further questions or concerns, Jessica Guerrero APRN.Estrellita Viera RN 06/25/2024 3:01 PM Signed Message has been relayed to patient via phone. Patient verbalizes understanding. RightSignature message sent for patients reference as requested. Allergies As of Date: 06/24/2024 Noted Allergy Reaction KEFLEX (CEPHALEXIN) 11/12/2013 14 - Other: See Comments Comments: Yeast infection MORPHINE 08/30/2013 2 - Rash 9 - Itching ZOFRAN (ONDANSETRON HCL (PF)) 01/14/2015 14 - Other: See Comments Comments: Syncope, incontinence ADHESIVE TAPE (ROSINS) 09/04/2013 2 - Rash INDOMETHACIN 11/20/2003 2 - Rash PERCOCET (OXYCODONE-ACETAMINOPH EN)01/10/2014 2 - Rash 5 - Intolerance 9 - Itching ADHESIVE 11/07/2022 2 - Rash Date Reviewed: 03/12/2024 Reviewed by: Lisa Aguilar LPN - Fully Assessed Reason for Visit: diabetic supplies [Other] Primary Visit Diagnosis:Diabetes mellitus type 1, controlled, without complications (HCC) [E10.9] Order(s):insulin glargine (LANTUS SOLOSTAR U-100 INSULIN) 100 unit/mL (3 mL)Inject 43 Units subcutaneously every 24 hours.Disp: 38.7 mLRfl: 1 Insulin [place], Disposable, (PEN NEEDLE) 32 gauge x 5/32Inject 4 Each subcutaneously every 24 hours. Give with each insulin administration.Disp: 360 EachRfl: 3 insulin lispro (HUMALOG KWIKPEN) 100 unit/mLPlease inject three times a day with meals- 1 unit for every 10 grams of carbs AND sliding scale 1 ADMINISTER SUPPLEMENTAL INSULIN REGARDLESS OF MEAL OR NUTRITION INTAKE: If Blood Glucose (mg/dL) is <110 Give 0 units 111-150 Give 0 units 151-200 Give 1 unit 201-250 Give 2 units 251-300 Give 3 units 301-350 Give 4 units 351-400 Give 5 units >400 give 5 units and notify provider. MAX TDD 40 unitsDisp: 45 mLRfl: 3 Prescriptions as of 06/25/2024 - insulin glargine (LANTUS SOLOSTAR U-100 INSULIN) 100 unit/mL (3 mL) Inject 43 Units subcutaneously every 24 hours. - Insulin [place], Disposable, (PEN NEEDLE) 32 gauge x 5/32 Inject 4 Each subcutaneously every 24 hours. Give with each insulin administration. - insulin lispro (HUMALOG KWIKPEN) 100 unit/mL Please inject three times a day with meals- 1 unit for every 10 grams of carbs AND sliding scale 1 ADMINISTER SUPPLEMENTAL INSULIN REGARDLESS OF MEAL OR NUTRITION INTAKE: If Blood Glucose (mg/dL) is <110 Give 0 units 111-150 Give 0 units 151-200 Give 1 unit 201-250 Give 2 units 251-300 Give 3 units 301-350 Give 4 units 351-400 Give 5 units >400 give 5 units and notify provider. MAX TDD 40 units - Lancets (MICROLET LANCET) Use as instructed to test blood sugar 4 times daily. E10.65 - insulin lispro (HUMALOG U-100 INSULIN) 100 unit/mL injection Use in the Insulin Pump for TDD of 100 units. - Needle, Disp, 23 G 23 gauge x 1 ndle Use to inject Solucortef intramuscularly - promethazine (PHENERGAN) 25 mg tablet Take 1 tablet by mouth every 6 hours as needed. - blood sugar diagnostic (CONTOUR NEXT TEST STRIPS) (more content not included)... Normal [facility] CNPNon 06-17-2024 FREIDAN Telephone (ASHLEYIN) KATHLEEN VILLA ([id number]) 1995 F CHT Date Time Provider Department 06/17/24 KVNG LEWIS During your visit today, we recorded the following information about you: Nichole Quinteros 06/17/2024 3:16 PM Signed Patient has been identified by name and date of : Yes Type of form: [facility] Medication Reconciliation Post Discharge V2 Form received via: Fax When form is completed, fax form to fax number provided. Form has been forwarded to: Provider's mailbox. Provider name: Re Rivers RN 06/17/2024 5:16 PM Signed Noted. Copy scanned into chart Allergies As of Date: 06/17/2024 Noted Allergy Reaction KEFLEX (CEPHALEXIN) 11/12/2013 14 - Other: See Comments Comments: Yeast infection MORPHINE 08/30/2013 2 - Rash 9 - Itching ZOFRAN (ONDANSETRON HCL (PF)) 01/14/2015 14 - Other: See Comments Comments: Syncope, incontinence ADHESIVE TAPE (ROSINS) 09/04/2013 2 - Rash INDOMETHACIN 11/20/2003 2 - Rash PERCOCET (OXYCODONE-ACETAMINOPH EN)01/10/2014 2 - Rash 5 - Intolerance 9 - Itching ADHESIVE 11/07/2022 2 - Rash Date Reviewed: 03/12/2024 Reviewed by: Lisa Aguilar LPN - Fully Assessed Reason for Visit: Forms [913] Prescriptions as of 06/17/2024 - insulin glargine 100 unit/mL (3 mL) Inject 43 Units subcutaneously as directed in the event of Insulin pump failure. - Lancets (MICROLET LANCET) Use as instructed to test blood sugar 4 times daily. E10.65 - insulin lispro (HUMALOG U-100 INSULIN) 100 unit/mL injection Use in the Insulin Pump for TDD of 100 units. - Needle, Disp, 23 G 23 gauge x 1 ndle Use to inject Solucortef intramuscularly - promethazine (PHENERGAN) 25 mg tablet Take 1 tablet by mouth every 6 hours as needed. - blood sugar diagnostic (CONTOUR NEXT TEST STRIPS) test strip Use as instructed to check blood glucose 5 times daily. E10.65 - lubiprostone (AMITIZA) 8 mcg capsule Take 1 capsule by mouth twice daily with meals. - prochlorperazine (COMPAZINE) 10 mg tablet Take 1 tablet by mouth every 6 hours as needed. - glucose 4 gram chewable tablet Take 4 tablets by mouth as needed. - Acetone, Urine, Test (KETONE URINE TEST) Use as directed - SKYRIZI 150 mg/mL injection INJECT 150 MG UNDER THE SKIN EVERY 12 WEEKS Meds Comments as of 01/09/2020: All meds reviewed before sx. Pt has aye also for after sx. CL 01/09/20 IC PNV prenata plus multivitamin Problem List As Of Date 06/17/2024 Noted Resolved Retinal detachment [H33.20] 10/26/2012 12/25/2012 SUMMARY [V999.95] 12/25/2012 Acute chest pain [R07.9] 12/25/2012 Marfan syndrome [Q87.40] 12/25/2012 DM (diabetes mellitus) (HCC) [E11.9] 12/25/2012 Gastroparesis due to DM (HCC) [E11.43, K31.84] 12/25/2012 PTSD (post-traumatic stress disorder) [F43.10] 12/25/2012 DVT prophylaxis [SSM0073] 12/25/2012 09/04/2013 DISPOSITION AND FOLLOW-UP [V999.01] 12/25/2012 09/04/2013 HTN (hypertension) [I10] Hypertension in , antepartum [O16.9] 09/19/2013 01/08/2014 GBS (group B Streptococcus carrier), +RV cultur*11/11/2013 04/16/2014 [Z34.90] 11/22/2013 04/16/2014 Diabetes mellitus in (HCC) [O24.919] 12/25/2013 04/16/2014 Diabetic ketoacidosis without coma associated w*01/08/2014 02/04/2023 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] 01/08/2014 DVT prophylaxis [NKE6038] 02/25/2014 04/16/2014 care and examination [Z39.2] 02/25/2014 04/16/2014 Near syncope [R55] 06/17/2014 Dyspnea [R06.00] 11/04/2014 Pre-op testing [Z01.818] 11/28/2014 Atelectasis [J98.11] 12/10/2014 Fluid overload [E87.70] 12/10/2014 12/15/2014 Tachycardia, unspecified [R00.0] 12/10/2014 12/12/2014 Post-operative pain [G89.18] 12/10/2014 Anxiety [F41.9] 12/10/2014 12/13/2014 Pre-existing type 1 diabetes mellitus in pregna*08/05/2015 10/03/2018 Hereditary disease in family possibly affecting*10/07/2015 Diabetes (HCC) [E11.9] 10/30/2015 Abdominal pain complicating , antepart*11/12/2015 [Z34.90] 01/28/2016 03/06/2017 Type 1 diabetes mellitus with stable proliferat*03/17/2017 Chronic idiopathic constipation [K59.04] 11/18/2021 Menstrual irregularity [N92.6] 04/18/2022 Screening for STD (sexually transmitted disease*04/18/2022 Chronic nausea [R11.0] 04/18/2022 Type 1 diabetes mellitus with hyperglycemia, wi*08/16/2022 Insulin pump status [Z96.41] 08/16/2022 Gastroparesis [K31.84] 11/23/2022 Generalized abdominal pain [R10.84] 12/08/2022 Nausea and vomiting [R11.2] 02/01/2023 Abdominal pain, suprapubic [R10.2] 02/07/2023 Encounter Status:Closed by RE GONZALEZ on 06/17/24 Normal [facility], Blood (WB)on 2023 CUB No growth in 5 days. Normal [facility] Comment on above: Performed By: #### M 200.1000 ####[facility] [address] [place], [address] Basic Metabolic Profile (BMP )on 06-11-2024 BUN/CRE 9.8 RATIO Low 10-20 [facility] Comment on above: Performed By: #### L 500.2500 ####[facility] [address] [place], [address] CA,Total 8.7 mg/dL Normal 8.5-10.1 [facility] Comment on above: Performed By: #### L 500.2500 ####[facility] [address] [place], [address] Chloride [Moles/Vol] 107 mmol/L Normal 98-107 [facility] Comment on above: Performed By: #### L 500.2500 ####[facility] [address] [place], [address] CO2 [Moles/Vol] 27.0 mmol/L Normal 21.0-32.0 [facility] Comment on above: Performed By: #### L 500.2500 ####[facility] [address] [place], [address] Creatinine [Mass/Vol] 0.82 mg/dL Normal 0.55-1.02 [facility] Comment on above: Result Comment: The validity of the calculated GFR GFRAA in patients over70 years has not been determined. Clinical correlation isessential. Performed By: #### L 500.2500 ####[facility] [address] [place], [address] ECRCL 105.79 ml/min Normal [facility] Comment on above: Performed By: #### L 500.2500 ####[facility] [address] [place], [address] EST GFR - AA 106 mL/min Normal >60 [facility] Comment on above: Result Comment: Afri can Brazilian GFR Calc Performed By: #### L 500.2500 ####[facility] [address] [place], [address] GAP 6 Normal 5-15 [facility] Comment on above: Performed By: #### L 500.2500 ####[facility] [address] [place], [address] GFR/1.73 sq M.predicted among non-blacks MDRD (S/P/Bld) [Vol rate/Area] 87 mL/min/{1.73_m2} Normal >60 [facility] Comment on above: Result Comment: Non- GFR Calc Performed By: #### L 500.2500 ####[facility] [address] [place], [address] Glucose [Mass/Vol] 194 mg/dL High 74-106 [facility] Comment on above: Result Comment: Fast ing Glucose result greater than or equal to 126 mg/dLsuggests DIABETES MELLITUS per A.D.A. criteria. Performed By: #### L 500.2500 ####[facility] [address] [place], [address] Potassium [Moles/Vol] 3.3 mmol/L Low 3.5-5.1 [facility] Comment on above: Performed By: #### L 500.2500 ####[facility] [address] [place], [address] Sodium [Moles/Vol] 140 mmol/L Normal 136-145 [facility] Comment on above: Performed By: #### L 500.2500 ####[facility] [address] [place], [address] Urea nitrogen [Mass/Vol] 8 mg/dL Normal 7-18 [facility] Comment on above: Performed By: #### L 500.2500 ####[facility] [address] [place], [address] Bedside Glucoseon 06-11-2024 FINGERSTICK GLU 116 mg/dL High 74-106 [facility] Comment on above: Result Comment: Dr Ej foreman FollowedMANAGEMENT OF PATIENT CARE PER NURSING PROTOCOL Performed By: #### L 501.080 ####[facility] [address] [place], [address] FINGERSTICK GLU 180 mg/dL High 74-106 [facility] Comment on above: Result Comment: EDGAR HUNG OF PATIENT CARE PER NURSING PROTOCOL Performed By: #### L 501.080 ####[facility] [address] [place], [address] Discharge Instructionon 05-28 Discharge Instruction Normal [facility] Acetone Serumon 06-10-2024 ACETONE SERUM Negative Normal NEG [facility] Comment on above: Performed By: #### L 501.6900 ####[facility] [address] [place], [address] Basic Metabolic Profile (BMP )on 06-10-2024 BUN Normal 7-18 [facility] Comment on above: Result Comment: Canc elled via OM: MD Ordered Performed By: #### L 500.2500 ####[facility] [address] [place], [address] BUN/CRE Normal 10-20 [facility] Comment on above: Result Comment: Canc elled via OM: MD Ordered Performed By: #### L 500.2500 ####[facility] [address] [place], [address] CA,Total Normal 8.5-10.1 [facility] Comment on above: Result Comment: Canc elled via OM: MD Ordered Performed By: #### L 500.2500 ####[facility] [address] [place], [address] CL Normal 98-107 [facility] Comment on above: Result Comment: Canc elled via OM: MD Ordered Performed By: #### L 500.2500 ####[facility] [address] [place], [address] CO2 Normal 21.0-32.0 [facility] Comment on above: Result Comment: Canc elled via OM: MD Ordered Performed By: #### L 500.2500 ####[facility] [address] [place], [address] CREAT,SERUM Normal 0.55-1.02 [facility] Comment on above: Result Comment: Canc elled via OM: MD Ordered Performed By: #### L 500.2500 ####[facility] [address] [place], [address] EST GFR Normal >60 [facility] Comment on above: Result Comment: Canc elled via OM: MD Ordered Performed By: #### L 500.2500 ####[facility] [address] [place], [address] EST GFR - AA Normal >60 [facility] Comment on above: Result Comment: Canc elled via OM: MD Ordered Performed By: #### L 500.2500 ####[facility] [address] [place], [address] GAP Normal 5-15 [facility] Comment on above: Result Comment: Canc elled via OM: MD Ordered Performed By: #### L 500.2500 ####[facility] [address] [place], [address] GLU Normal 74-106 [facility] Comment on above: Result Comment: Canc elled via OM: MD Ordered Performed By: #### L 500.2500 ####[facility] [address] [place], [address] Potassium Normal 3.5-5.1 [facility] Comment on above: Result Comment: Canc elled via OM: MD Ordered Performed By: #### L 500.2500 ####[facility] [address] [place], [address] Basic Metabolic Profile (BMP) Normal 136-145 [facility] Comment on above: Result Comment: Mary elled via OM: MD Ordered Performed By: #### L 500.2500 ####[facility] [address] [place], [address] BUN/CRE 9.8 RATIO Low 10-20 [facility] Comment on above: Performed By: #### L 500.2500 ####[facility] [address] [place], [address] CA,Total 7.9 mg/dL Low 8.5-10.1 [facility] Comment on above: Performed By: #### L 500.2500 ####[facility] [address] [place], [address] Chloride [Moles/Vol] 107 mmol/L Normal 98-107 [facility] Comment on above: Performed By: #### L 500.2500 ####[facility] [address] [place], [address] CO2 [Moles/Vol] 25.0 mmol/L Normal 21.0-32.0 [facility] Comment on above: Performed By: #### L 500.2500 ####[facility] [address] [place], [address] Creatinine [Mass/Vol] 0.61 mg/dL Normal 0.55-1.02 [facility] Comment on above: Result Comment: The validity of the calculated GFR GFRAA in patients over70 years has not been determined. Clinical correlation isessential. Performed By: #### L 500.2500 ####[facility] [address] [place], [address] ECRCL 142.21 ml/min Normal [facility] Comment on above: Performed By: #### L 500.2500 ####[facility] [address] [place], [address] EST GFR - AA 148 mL/min Normal >60 [facility] Comment on above: Result Comment: Afri can Brazilian GFR Calc Performed By: #### L 500.2500 ####[facility] [address] [place], [address] GAP 10 Normal 5-15 [facility] Comment on above: Performed By: #### L 500.2500 ####[facility] [address] [place], [address] GFR/1.73 sq M.predicted among non-blacks MDRD (S/P/Bld) [Vol rate/Area] 123 mL/min/{1.73_m2} Normal >60 [facility] Comment on above: Result Comment: Non- GFR Calc Performed By: #### L 500.2500 ####[facility] [address] [place], [address] Glucose [Mass/Vol] 89 mg/dL Normal 74-106 [facility] Comment on above: Performed By: #### L 500.2500 ####[facility] [address] [place], [address] Potassium [Moles/Vol] 3.0 mmol/L Low 3.5-5.1 [facility] Comment on above: Performed By: #### L 500.2500 ####[facility] [address] [place], [address] Sodium [Moles/Vol] 141 mmol/L Normal 136-145 [facility] Comment on above: Performed By: #### L 500.2500 ####[facility] [address] [place], [address] Urea nitrogen [Mass/Vol] 6 mg/dL Low 7-18 [facility] Comment on above: Performed By: #### L 500.2500 ####[facility] [address] [place], [address] BUN/CRE 11.2 RATIO Normal 10-20 [facility] Comment on above: Performed By: #### L 501.2300, L100.0100, L500.2500, L501.5200 ####[facility] [address] [place], [address] CA,Total 8.0 mg/dL Low 8.5-10.1 [facility] Comment on above: Performed By: #### L 501.2300, L100.0100, L500.2500, L501.5200 ####[facility] [address] [place], [address] Chloride [Moles/Vol] 107 mmol/L Normal 98-107 [facility] Comment on above: Performed By: #### L 501.2300, L100.0100, L500.2500, L501.5200 ####[facility] [address] [place], [address] CO2 [Moles/Vol] 24.0 mmol/L Normal 21.0-32.0 [facility] Comment on above: Performed By: #### L 501.2300, L100.0100, L500.2500, L501.5200 ####[facility] [address] [place], [address] Creatinine [Mass/Vol] 0.63 mg/dL Normal 0.55-1.02 [facility] Comment on above: Result Comment: The validity of the calculated GFR GFRAA in patients over70 years has not been determined. Clinical correlation isessential. Performed By: #### L 501.2300, L100.0100, L500.2500, L501.5200 ####[facility] [address] [place], [address] ECRCL 137.70 ml/min Normal [facility] Comment on above: Performed By: #### L 501.2300, L100.0100, L500.2500, L501.5200 ####[facility] [address] [place], [address] EST GFR - AA 144 mL/min Normal >60 [facility] Comment on above: Result Comment: Afri can Brazilian GFR Calc Performed By: #### L 501.2300, L100.0100, L500.2500, L501.5200 ####[facility] [address] [place], [address] GAP 7 Normal 5-15 [facility] Comment on above: Performed By: #### L 501.2300, L100.0100, L500.2500, L501.5200 ####[facility] [address] [place], [address] GFR/1.73 sq M.predicted among non-blacks MDRD (S/P/Bld) [Vol rate/Area] 119 mL/min/{1.73_m2} Normal >60 [facility] Comment on above: Result Comment: Non- GFR Calc Performed By: #### L 501.2300, L100.0100, L500.2500, L501.5200 ####[facility] [address] [place], [address] Glucose [Mass/Vol] 127 mg/dL High 74-106 [facility] Comment on above: Result Comment: Fast ing Glucose result greater than or equal to 126 mg/dLsuggests DIABETES MELLITUS per A.D.A. criteria. Performed By: #### L 501.2300, L100.0100, L500.2500, L501.5200 ####[facility] [address] [place], [address] Potassium [Moles/Vol] 3.7 mmol/L Normal 3.5-5.1 [facility] Comment on above: Performed By: #### L 501.2300, L100.0100, L500.2500, L501.5200 ####[facility] [address] [place], [address] Sodium [Moles/Vol] 138 mmol/L Normal 136-145 [facility] Comment on above: Performed By: #### L 501.2300, L100.0100, L500.2500, L501.5200 ####[facility] [address] [place], [address] Urea nitrogen [Mass/Vol] 7 mg/dL Normal 7-18 [facility] Comment on above: Performed By: #### L 501.2300, L100.0100, L500.2500, L501.5200 ####[facility] [address] [place], [address] BUN/CRE 11.2 RATIO Normal 10-20 [facility] Comment on above: Performed By: #### L 500.2500 ####[facility] [address] [place], [address] CA,Total 7.9 mg/dL Low 8.5-10.1 [facility] Comment on above: Performed By: #### L 500.2500 ####[facility] [address] [place], [address] Chloride [Moles/Vol] 107 mmol/L Normal 98-107 [facility] Comment on above: Performed By: #### L 500.2500 ####[facility] [address] [place], [address] CO2 [Moles/Vol] 25.0 mmol/L Normal 21.0-32.0 [facility] Comment on above: Performed By: #### L 500.2500 ####[facility] [address] [place], [address] Creatinine [Mass/Vol] 0.81 mg/dL Normal 0.55-1.02 [facility] Comment on above: Result Comment: The validity of the calculated GFR GFRAA in patients over70 years has not been determined. Clinical correlation isessential. Performed By: #### L 500.2500 ####[facility] [address] [place], [address] ECRCL 107.10 ml/min Normal [facility] Comment on above: Performed By: #### L 500.2500 ####[facility] [address] [place], [address] EST GFR - AA 108 mL/min Normal >60 [facility] Comment on above: Result Comment: Afri can Brazilian GFR Calc Performed By: #### L 500.2500 ####[facility] [address] [place], [address] GAP 7 Normal 5-15 [facility] Comment on above: Performed By: #### L 500.2500 ####[facility] [address] [place], [address] GFR/1.73 sq M.predicted among non-blacks MDRD (S/P/Bld) [Vol rate/Area] 89 mL/min/{1.73_m2} Normal >60 [facility] Comment on above: Result Comment: Non- GFR Calc Performed By: #### L 500.2500 ####[facility] [address] [place], [address] Glucose [Mass/Vol] 185 mg/dL High 74-106 [facility] Comment on above: Result Comment: Fast ing Glucose result greater than or equal to 126 mg/dLsuggests DIABETES MELLITUS per A.D.A. criteria. Performed By: #### L 500.2500 ####[facility] [address] [place], [address] Potassium [Moles/Vol] 2.9 mmol/L Low 3.5-5.1 [facility] Comment on above: Performed By: #### L 500.2500 ####[facility] [address] [place], [address] Sodium [Moles/Vol] 140 mmol/L Normal 136-145 [facility] Comment on above: Performed By: #### L 500.2500 ####[facility] [address] [place], [address] Urea nitrogen [Mass/Vol] 9 mg/dL Normal 7-18 [facility] Comment on above: Performed By: #### L 500.2500 ####[facility] [address] [place], [address] Bedside Glucoseon 06-10-2024 FINGERSTICK GLU 122 mg/dL High 74-106 [facility] Comment on above: Result Comment: EDGAR GEMENT OF PATIENT CARE PER NURSING PROTOCOL Performed By: #### L 501.080 ####[facility] [address] [place], [address] FINGERSTICK GLU 120 mg/dL High 74-106 [facility] Comment on above: Result Comment: EDGAR GEMENT OF PATIENT CARE PER NURSING PROTOCOL Performed By: #### L 501.080 ####[facility] [address] [place], [address] FINGERSTICK GLU 158 mg/dL High 74-106 [facility] Comment on above: Result Comment: EDGAR GEMENT OF PATIENT CARE PER NURSING PROTOCOL Performed By: #### L 501.080 ####[facility] [address] [place], [address] FINGERSTICK GLU 93 mg/dL Normal 74-106 [facility] Comment on above: Result Comment: EDGAR GEMENT OF PATIENT CARE PER NURSING PROTOCOL Performed By: #### L 501.080 ####[facility] [address] [place], [address] FINGERSTICK GLU 85 mg/dL Normal 74-106 [facility] Comment on above: Result Comment: EDGAR GEMENT OF PATIENT CARE PER NURSING PROTOCOL Performed By: #### L 501.080 ####[facility] [address] [place], [address] FINGERSTICK GLU 67 mg/dL Low 74-106 [facility] Comment on above: Result Comment: EDGAR GEMENT OF PATIENT CARE PER NURSING PROTOCOL Performed By: #### L 501.080 ####[facility] [address] [place], [address] FINGERSTICK GLU 64 mg/dL Low 74-106 [facility] Comment on above: Result Comment: EDGAR GEMENT OF PATIENT CARE PER NURSING PROTOCOL Performed By: #### L 501.080 ####[facility] [address] [place], [address] FINGERSTICK GLU 74 mg/dL Normal 74-106 [facility] Comment on above: Result Comment: EDGAR GEMENT OF PATIENT CARE PER NURSING PROTOCOL Performed By: #### L 501.080 ####[facility] [address] [place], [address] FINGERSTICK GLU 124 mg/dL High 74-106 [facility] Comment on above: Result Comment: EDGAR GEMENT OF PATIENT CARE PER NURSING PROTOCOL Performed By: #### L 501.080 ####[facility] [address] [place], [address] FINGERSTICK GLU 146 mg/dL High 74-106 [facility] Comment on above: Result Comment: EDGAR GEMENT OF PATIENT CARE PER NURSING PROTOCOL Performed By: #### L 501.080 ####[facility] [address] [place], [address] FINGERSTICK GLU 122 mg/dL High 74-106 [facility] Comment on above: Result Comment: EDGAR GEMENT OF PATIENT CARE PER NURSING PROTOCOL Performed By: #### L 501.080 ####[facility] [address] [place], [address] FINGERSTICK GLU 286 mg/dL High 74-106 [facility] Comment on above: Result Comment: EDGAR GEMENT OF PATIENT CARE PER NURSING PROTOCOL Performed By: #### L 501.080 ####[facility] [address] [place], [address] FINGERSTICK GLU 233 mg/dL High 74-106 [facility] Comment on above: Result Comment: EDGAR GEMENT OF PATIENT CARE PER NURSING PROTOCOL Performed By: #### L 501.080 ####[facility] [address] [place], [address] FINGERSTICK GLU 194 mg/dL High -106 [facility] Comment on above: Result Comment: EDGAR GEMENT OF PATIENT CARE PER NURSING PROTOCOL Performed By: #### L 501.080 ####[facility] [address] [place], [address] FINGERSTICK GLU 195 mg/dL High 74-106 [facility] Comment on above: Result Comment: EDGAR GEMENT OF PATIENT CARE PER NURSING PROTOCOL Performed By: #### L 501.080 ####[facility] [address] [place], [address] CBC W/Diff, Automatedon 10-1 Absolute Lymph 2.08 X10 3/uL Normal 0.83-4.51 [facility] Comment on above: Performed By: #### L 501.2300, L100.0100, L500.2500, L501.5200 ####[facility] [address] [place], [address] Absolute Neut 11.6 X10 3/uL High 2.0-7.7 [facility] Comment on above: Performed By: #### L 501.2300, L100.0100, L500.2500, L501.5200 ####[facility] [address] [place], [address] Basophils/100 WBC (Bld) 0.3 % Normal 0-1 [facility] Comment on above: Performed By: #### L 501.2300, L100.0100, L500.2500, L501.5200 ####[facility] [address] [place], [address] Eosinophils/100 WBC (Bld) 0.1 % Normal 0-5 [facility] Comment on above: Performed By: #### L 501.2300, L100.0100, L500.2500, L501.5200 ####[facility] [address] [place], [address] Erythrocyte distribution width (RBC) [Ratio] 12.6 % Normal 11.6-14.6 [facility] Comment on above: Performed By: #### L 501.2300, L100.0100, L500.2500, L501.5200 ####[facility] [address] [place], [address] Hematocrit (Bld) [Volume fraction] 36.7 % Low 37-47 [facility] Comment on above: Performed By: #### L 501.2300, L100.0100, L500.2500, L501.5200 ####[facility] [address] [place], [address] Hemoglobin (Bld) [Mass/Vol] 12.2 g/dL Normal 12.0-15.0 [facility] Comment on above: Performed By: #### L 501.2300, L100.0100, L500.2500, L501.5200 ####[facility] [address] [place], [address] IG% 1.100 High 0.0-0.9 [facility] Comment on above: Result Comment: IG% - Immature Granulocytes (promyelocytes, myelocytes andmetamyelocytes) > 1% indicates that a LEFT SHIFT is Present. Performed By: #### L 501.2300, L100.0100, L500.2500, L501.5200 ####[facility] [address] [place], [address] Lymphocytes/100 WBC (Bld) 14.1 % Low 19-41 [facility] Comment on above: Performed By: #### L 501.2300, L100.0100, L500.2500, L501.5200 ####[facility] [address] [place], [address] MCH (RBC) [Entitic mass] 29.5 pg Normal 27.0-32.0 [facility] Comment on above: Performed By: #### L 501.2300, L100.0100, L500.2500, L501.5200 ####[facility] [address] [place], [address] MCHC (RBC) [Mass/Vol] 33.2 g/dL Normal 32-36 [facility] Comment on above: Performed By: #### L 501.2300, L100.0100, L500.2500, L501.5200 ####[facility] [address] [place], [address] MCV (RBC) [Entitic vol] 88.9 fL Normal 81-99 [facility] Comment on above: Performed By: #### L 501.2300, L100.0100, L500.2500, L501.5200 ####[facility] [address] [place], [address] Monocytes/100 WBC (Bld) 5.9 % Normal 0-10 [facility] Comment on above: Performed By: #### L 501.2300, L100.0100, L500.2500, L501.5200 ####[facility] [address] [place], [address] Neutrophils/100 WBC (Bld) 78.5 % High 47-70 [facility] Comment on above: Performed By: #### L 501.2300, L100.0100, L500.2500, L501.5200 ####[facility] [address] [place], [address] Nucleated RBC (Bld) [#/Vol] 0 10*3/uL Normal 0-5 [facility] Comment on above: Performed By: #### L 501.2300, L100.0100, L500.2500, L501.5200 ####[facility] [address] [place], [address] Platelet mean volume (Bld) [Entitic vol] 11.8 fL Normal 6.2-12.0 [facility] Comment on above: Performed By: #### L 501.2300, L100.0100, L500.2500, L501.5200 ####[facility] [address] [place], [address] Platelets (Bld) [#/Vol] 187 10*3/uL Normal 150-450 [facility] Comment on above: Performed By: #### L 501.2300, L100.0100, L500.2500, L501.5200 ####[facility] [address] [place], [address] RBC (Bld) [#/Vol] 4.13 10*6/uL Low 4.2-5.4 [facility] Comment on above: Performed By: #### L 501.2300, L100.0100, L500.2500, L501.5200 ####[facility] [address] [place], [address] RDW SD 41.1 fl Normal 35.1-43.9 [facility] Comment on above: Performed By: #### L 501.2300, L100.0100, L500.2500, L501.5200 ####[facility] [address] [place], [address] WBC (Bld) [#/Vol] 14.8 10*3/uL High 4.4-11.0 [facility] Comment on above: Performed By: #### L 501.2300, L100.0100, L500.2500, L501.5200 ####[facility] [address] [place], [address] Magnesiumon 06-10-2024 Magnesium [Mass/Vol] 2.2 mg/dL Normal 1.6-2.6 [facility] Comment on above: Performed By: #### L 501.2300, L100.0100, L500.2500, L501.5200 ####[facility] [address] [place], [address] Phosphoruson 06-10-2024 Phosphate [Mass/Vol] 2.3 mg/dL Low 2.5-4.9 [facility] Comment on above: Performed By: #### L 501.2300 ####[facility] [address] [place], [address] Phosphate [Mass/Vol] 1.8 mg/dL Low 2.5-4.9 [facility] Comment on above: Performed By: #### L 501.2300, L100.0100, L500.2500, L501.5200 ####[facility] [address] [place], [address] Acetone Serumon 06-09-2024 ACETONE SERUM LARGE Abnormal NEG [facility] Comment on above: Performed By: #### L 501.6900 ####[facility] [address] [place], [address] Basic Metabolic Profile (BMP )on 06-09-2024 BUN/CRE 12.1 RATIO Normal 10-20 [facility] Comment on above: Performed By: #### L 500.2500 ####[facility] [address] [place], [address] CA,Total 8.0 mg/dL Low 8.5-10.1 [facility] Comment on above: Performed By: #### L 500.2500 ####[facility] [address] [place], [address] Chloride [Moles/Vol] 103 mmol/L Normal 98-107 [facility] Comment on above: Performed By: #### L 500.2500 ####[facility] [address] [place], [address] CO2 [Moles/Vol] 21.0 mmol/L Normal 21.0-32.0 [facility] Comment on above: Performed By: #### L 500.2500 ####[facility] [address] [place], [address] Creatinine [Mass/Vol] 0.74 mg/dL Normal 0.55-1.02 [facility] Comment on above: Result Comment: The validity of the calculated GFR GFRAA in patients over70 years has not been determined. Clinical correlation isessential. Performed By: #### L 500.2500 ####[facility] [address] [place], [address] ECRCL 117.23 ml/min Normal [facility] Comment on above: Performed By: #### L 500.2500 ####[facility] [address] [place], [address] EST GFR - AA 118 mL/min Normal >60 [facility] Comment on above: Result Comment: Afri can Brazilian GFR Calc Performed By: #### L 500.2500 ####[facility] [address] [place], [address] GAP 12 Normal 5-15 [facility] Comment on above: Performed By: #### L 500.2500 ####[facility] [address] [place], [address] GFR/1.73 sq M.predicted among non-blacks MDRD (S/P/Bld) [Vol rate/Area] 98 mL/min/{1.73_m2} Normal >60 [facility] Comment on above: Result Comment: Non- GFR Calc Performed By: #### L 500.2500 ####[facility] [address] [place], [address] Glucose [Mass/Vol] 351 mg/dL High 74-106 [facility] Comment on above: Result Comment: Gluc ose result greater than or equal to 200 mg/dLsuggests DIABETES MELLITUS per A.D.A. criteria. Performed By: #### L 500.2500 ####[facility] [address] [place], [address] Potassium [Moles/Vol] 3.4 mmol/L Low 3.5-5.1 [facility] Comment on above: Performed By: #### L 500.2500 ####[facility] [address] [place], [address] Sodium [Moles/Vol] 136 mmol/L Normal 136-145 [facility] Comment on above: Performed By: #### L 500.2500 ####[facility] [address] [place], [address] Urea nitrogen [Mass/Vol] 9 mg/dL Normal 7-18 [facility] Comment on above: Performed By: #### L 500.2500 ####[facility] [address] [place], [address] BUN Normal 7-18 [facility] Comment on above: Result Comment: Mary sanchez via OM: Ordered Performed By: #### L 500.2500 ####[facility] [address] [place], [address] Order Comment: Call MD with results STAT BUN/CRE Normal 10-20 [facility] Comment on above: Result Comment: Canc elled via OM: MD Ordered Performed By: #### L 500.2500 ####[facility] [address] [place], [address] Order Comment: Call MD with results STAT CA,Total Normal 8.5-10.1 [facility] Comment on above: Result Comment: Canc elled via OM: MD Ordered Performed By: #### L 500.2500 ####[facility] [address] [place], [address] Order Comment: Call MD with results STAT CL Normal 98-107 [facility] Comment on above: Result Comment: Canc elled via OM: MD Ordered Performed By: #### L 500.2500 ####[facility] [address] [place] [address] Order Comment: Call MD with results STAT CO2 Normal 21.0-32.0 [facility] Comment on above: Result Comment: Canc elled via OM: MD Ordered Performed By: #### L 500.2500 ####[facility] [address] [place] [id number] Order Comment: Call MD with results STAT CREAT,SERUM Normal 0.55-1.02 [facility] Comment on above: Result Comment: Canc elled via OM: MD Ordered Performed By: #### L 500.2500 ####[facility] [address] [place] [address] Order Comment: Call MD with results STAT EST GFR Normal >60 [facility] Comment on above: Result Comment: Canc elled via OM: MD Ordered Performed By: #### L 500.2500 ####[facility] [address] [place] [address] Order Comment: Call MD with results STAT EST GFR - AA Normal >60 [facility] Comment on above: Result Comment: Canc elled via OM: MD Ordered Performed By: #### L 500.2500 ####[facility] [address] [place], [address] Order Comment: Call MD with results STAT GAP Normal 5-15 [facility] Comment on above: Result Comment: Canc elled via OM: MD Ordered Performed By: #### L 500.2500 ####[facility] [address] [place], [address] Order Comment: Call MD with results STAT GLU Normal 74-106 [facility] Comment on above: Result Comment: Canc elled via OM: MD Ordered Performed By: #### L 500.2500 ####[facility] [address] [place], [address] Order Comment: Call MD with results STAT Potassium Normal 3.5-5.1 [facility] Comment on above: Result Comment: Canc elled via OM: MD Ordered Performed By: #### L 500.2500 ####[facility] [address] [place], [address] Order Comment: Call MD with results STAT Basic Metabolic Profile (BMP) Normal 136-145 [facility] Comment on above: Result Comment: Can elled via OM: MD Ordered Performed By: #### L 500.2500 ####[facility] [address] [place], [address] Order Comment: Call MD with results STAT BUN Normal 7-18 [facility] Comment on above: Order Comment: Call MD with results STAT Result Comment: NOT COLLECTED. Performed By: #### L 500.2500 ####[facility] [address] [place], [address] BUN/CRE Normal 10-20 [facility] Comment on above: Order Comment: Call MD with results STAT Result Comment: NOT COLLECTED. Performed By: #### L 500.2500 ####[facility] [address] [place], [address] CA,Total Normal 8.5-10.1 [facility] Comment on above: Order Comment: Call MD with results STAT Result Comment: NOT COLLECTED. Performed By: #### L 500.2500 ####[facility] [address] [place], [address] CL Normal 98-107 [facility] Comment on above: Order Comment: Call MD with results STAT Result Comment: NOT COLLECTED. Performed By: #### L 500.2500 ####[facility] [address] [place], [address] CO2 Normal 21.0-32.0 [facility] Comment on above: Order Comment: Call MD with results STAT Result Comment: NOT COLLECTED. Performed By: #### L 500.2500 ####[facility] [address] [place], [address] CREAT,SERUM Normal 0.55-1.02 [facility] Comment on above: Order Comment: Call MD with results STAT Result Comment: NOT COLLECTED. Performed By: #### L 500.2500 ####[facility] [address] [place], [address] EST GFR Normal >60 [facility] Comment on above: Order Comment: Call MD with results STAT Result Comment: NOT COLLECTED. Performed By: #### L 500.2500 ####[facility] [address] [place], [address] EST GFR - AA Normal >60 [facility] Comment on above: Order Comment: Call MD with results STAT Result Comment: NOT COLLECTED. Performed By: #### L 500.2500 ####[facility] [address] [place], [address] GAP Normal 5-15 [facility] Comment on above: Order Comment: Call MD with results STAT Result Comment: NOT COLLECTED. Performed By: #### L 500.2500 ####[facility] [address] [place], [address] GLU Normal 74-106 [facility] Comment on above: Order Comment: Call MD with results STAT Result Comment: NOT COLLECTED. Performed By: #### L 500.2500 ####[facility] [address] [place], [address] Potassium Normal 3.5-5.1 [facility] Comment on above: Order Comment: Call MD with results STAT Result Comment: NOT COLLECTED. Performed By: #### L 500.2500 ####[facility] [address] [place], [address] Basic Metabolic Profile (BMP) Normal 136-145 [facility] Comment on above: Order Comment: Call MD with results STAT Result Comment: NOT COLLECTED. Performed By: #### L 500.2500 ####[facility] [address] [place], [address] Bedside Glucoseon 06-09-2024 FINGERSTICK GLU 322 mg/dL High 74-106 [facility] Comment on above: Result Comment: EDGAR GEMENT OF PATIENT CARE PER NURSING PROTOCOL Performed By: #### L 501.080 ####[facility] [address] [place], [address] FINGERSTICK GLU 354 mg/dL High 74-106 [facility] Comment on above: Result Comment: EDGAR GEMENT OF PATIENT CARE PER NURSING PROTOCOL Performed By: #### L 501.080 ####[facility] [address] [place], [address] FINGERSTICK GLU 146 mg/dL High 74-106 [facility] Comment on above: Result Comment: EDGAR GEMENT OF PATIENT CARE PER NURSING PROTOCOL Performed By: #### L 501.080 ####[facility] [address] [place], [address] FINGERSTICK GLU 51 mg/dL Low 74-106 [facility] Comment on above: Result Comment: EDGAR GEMENT OF PATIENT CARE PER NURSING PROTOCOL Performed By: #### L 501.080 ####[facility] [address] [place], [address] FINGERSTICK GLU 72 mg/dL Low 74-106 [facility] Comment on above: Result Comment: EDGAR GEMENT OF PATIENT CARE PER NURSING PROTOCOL Performed By: #### L 501.080 ####[facility] [address] [place], [address] FINGERSTICK GLU 127 mg/dL High 74-106 [facility] Comment on above: Result Comment: EDGAR GEMENT OF PATIENT CARE PER NURSING PROTOCOL Performed By: #### L 501.080 ####[facility] [address] [facility] [address] FINGERSTICK GLU 128 mg/dL High 74-106 [facility] Comment on above: Result Comment: EDGAR GEMENT OF PATIENT CARE PER NURSING PROTOCOL Performed By: #### L 501.080 ####[facility] [address] [facility] [address] FINGERSTICK GLU 135 mg/dL High 74-106 [facility] Comment on above: Result Comment: EDGAR GEMENT OF PATIENT CARE PER NURSING PROTOCOL Performed By: #### L 501.080 ####[facility] [address] [place], [address] FINGERSTICK GLU 127 mg/dL High 74-106 [facility] Comment on above: Result Comment: EDGAR GEMENT OF PATIENT CARE PER NURSING PROTOCOL Performed By: #### L 501.080 ####[facility] [address] [facility] [address] FINGERSTICK GLU 131 mg/dL High 74-106 [facility] Comment on above: Result Comment: EDGAR GEMENT OF PATIENT CARE PER NURSING PROTOCOL Performed By: #### L 501.080 ####[facility] [address] [facility] [address] FINGERSTICK GLU 136 mg/dL High 74-106 [facility] Comment on above: Result Comment: EDGAR GEMENT OF PATIENT CARE PER NURSING PROTOCOL Performed By: #### L 501.080 ####[facility] [address] [place], [address] FINGERSTICK GLU 170 mg/dL High 74-106 [facility] Comment on above: Result Comment: EDGAR GEMENT OF PATIENT CARE PER NURSING PROTOCOL Performed By: #### L 501.080 ####[facility] [address] [place], [address] FINGERSTICK GLU 206 mg/dL High 74-106 [facility] Comment on above: Result Comment: EDGAR GEMENT OF PATIENT CARE PER NURSING PROTOCOL Performed By: #### L 501.080 ####[facility] [address] [place], [address] CBC W/Diff, Automatedon 10-1 3-2023 Absolute Lymph 1.62 X10 3/uL Normal 0.83-4.51 [facility] Comment on above: Performed By: #### L 501.2300, L100.0100 ####[facility] [address] [place], [address] Absolute Neut 14.1 X10 3/uL High 2.0-7.7 [facility] Comment on above: Performed By: #### L 501.2300, L100.0100 ####[facility] [address] [place], [address] Basophils/100 WBC (Bld) 0.2 % Normal 0-1 [facility] Comment on above: Performed By: #### L 501.2300, L100.0100 ####[facility] [address] [place], [address] Eosinophils/100 WBC (Bld) 0.1 % Normal 0-5 [facility] Comment on above: Performed By: #### L 501.2300, L100.0100 ####[facility] [address] [place], [address] Erythrocyte distribution width (RBC) [Ratio] 12.9 % Normal 11.6-14.6 [facility] Comment on above: Performed By: #### L 501.2300, L100.0100 ####[facility] [address] [place], [address] Hematocrit (Bld) [Volume fraction] 34.0 % Low 37-47 [facility] Comment on above: Performed By: #### L 501.2300, L100.0100 ####[facility] [address] [place], [address] Hemoglobin (Bld) [Mass/Vol] 11.1 g/dL Low 12.0-15.0 [facility] Comment on above: Performed By: #### L 501.2300, L100.0100 ####[facility] [address] [place], [address] IG% 0.800 Normal 0.0-0.9 [facility] Comment on above: Result Comment: IG% - Immature Granulocytes (promyelocytes, myelocytes andmetamyelocytes) > 1% indicates that a LEFT SHIFT is Present. Performed By: #### L 501.2300, L100.0100 ####[facility] [address] [place], [address] Lymphocytes/100 WBC (Bld) 9.7 % Low 19-41 [facility] Comment on above: Performed By: #### L 501.2300, L100.0100 ####[facility] [address] [place], [address] MCH (RBC) [Entitic mass] 29.1 pg Normal 27.0-32.0 [facility] Comment on above: Performed By: #### L 501.2300, L100.0100 ####[facility] [address] [place], [address] MCHC (RBC) [Mass/Vol] 32.6 g/dL Normal 32-36 [facility] Comment on above: Performed By: #### L 501.2300, L100.0100 ####[facility] [address] [place], [address] MCV (RBC) [Entitic vol] 89.2 fL Normal 81-99 [facility] Comment on above: Performed By: #### L 501.2300, L100.0100 ####[facility] [address] [place], [address] Monocytes/100 WBC (Bld) 5.1 % Normal 0-10 [facility] Comment on above: Performed By: #### L 501.2300, L100.0100 ####[facility] [address] [place], [address] Neutrophils/100 WBC (Bld) 84.1 % High 47-70 [facility] Comment on above: Performed By: #### L 501.2300, L100.0100 ####[facility] [address] [place], [address] Nucleated RBC (Bld) [#/Vol] 0 10*3/uL Normal 0-5 [facility] Comment on above: Performed By: #### L 501.2300, L100.0100 ####[facility] [address] [place], [address] Platelet mean volume (Bld) [Entitic vol] 12.0 fL Normal 6.2-12.0 [facility] Comment on above: Performed By: #### L 501.2300, L100.0100 ####[facility] [address] [place], [address] Platelets (Bld) [#/Vol] 147 10*3/uL Low 150-450 [facility] Comment on above: Performed By: #### L 501.2300, L100.0100 ####[facility] [address] [place], [address] RBC (Bld) [#/Vol] 3.81 10*6/uL Low 4.2-5.4 [facility] Comment on above: Performed By: #### L 501.2300, L100.0100 ####[facility] [address] [place], [address] RDW SD 42.1 fl Normal 35.1-43.9 [facility] Comment on above: Performed By: #### L 501.2300, L100.0100 ####[facility] [address] [place], [address] WBC (Bld) [#/Vol] 16.7 10*3/uL High 4.4-11.0 [facility] Comment on above: Performed By: #### L 501.2300, L100.0100 ####[facility] [address] [place], [address] Comprehensive Metabolic Prof ilon 06-09-2024 Albumin [Mass/Vol] 3.0 g/dL Low 3.2-5.0 [facility] Comment on above: Order Comment: Call MD with results STAT Performed By: #### L 500.4050, L501.5200 ####[facility] [address] [place], [address] Albumin/Globulin [Mass ratio] 1.1 {ratio} Normal 0.9-2.4 [facility] Comment on above: Order Comment: Call MD with results STAT Performed By: #### L 500.4050, L501.5200 ####[facility] [address] [place], [address] ALK P 68 U/L Normal 45-117 [facility] Comment on above: Order Comment: Call MD with results STAT Performed By: #### L 500.4050, L501.5200 ####[facility] [address] [place], [address] ALT [Catalytic activity/Vol] 22 U/L Normal 13-56 [facility] Comment on above: Order Comment: Call MD with results STAT Performed By: #### L 500.4050, L501.5200 ####[facility] [address] [place], [address] AST [Catalytic activity/Vol] 12 U/L Low 15-37 [facility] Comment on above: Order Comment: Call MD with results STAT Performed By: #### L 500.4050, L501.5200 ####[facility] [address] [place], [address] Bilirubin [Mass/Vol] 0.80 mg/dL Normal 0.20-1.00 [facility] Comment on above: Order Comment: Call MD with results STAT Result Comment: For patients on eltrombopag therapy, use of Dimension Liberty TBIL is not recommended. Performed By: #### L 500.4050, L501.5200 ####[facility] [address] [place], [address] BUN/CRE 16.7 RATIO Normal 10-20 [facility] Comment on above: Order Comment: Call MD with results STAT Performed By: #### L 500.4050, L501.5200 ####[facility] [address] [place], [address] CA,Total 7.7 mg/dL Low 8.5-10.1 [facility] Comment on above: Order Comment: Call MD with results STAT Performed By: #### L 500.4050, L501.5200 ####[facility] [address] [place], [address] Chloride [Moles/Vol] 111 mmol/L High 98-107 [facility] Comment on above: Order Comment: Call MD with results STAT Performed By: #### L 500.4050, L501.5200 ####[facility] [address] [place], [address] CO2 [Moles/Vol] 23.0 mmol/L Normal 21.0-32.0 [facility] Comment on above: Order Comment: Call MD with results STAT Performed By: #### L 500.4050, L501.5200 ####[facility] [address] [place], [address] Creatinine [Mass/Vol] 0.60 mg/dL Normal 0.55-1.02 [facility] Comment on above: Order Comment: Call MD with results STAT Result Comment: The validity of the calculated GFR GFRAA in patients over70 years has not been determined. Clinical correlation isessential. Performed By: #### L 500.4050, L501.5200 ####[facility] [address] [place], [address] ECRCL 144.58 ml/min Normal [facility] Comment on above: Order Comment: Call MD with results STAT Performed By: #### L 500.4050, L501.5200 ####[facility] [address] [place], [address] EST GFR - AA 151 mL/min Normal >60 [facility] Comment on above: Order Comment: Call MD with results STAT Result Comment: Afri can Brazilian GFR Calc Performed By: #### L 500.4050, L501.5200 ####[facility] [address] [place], [address] GAP 6 Normal 5-15 [facility] Comment on above: Order Comment: Call MD with results STAT Performed By: #### L 500.4050, L501.5200 ####[facility] [address] [place], [address] GFR/1.73 sq M.predicted among non-blacks MDRD (S/P/Bld) [Vol rate/Area] 125 mL/min/{1.73_m2} Normal >60 [facility] Comment on above: Order Comment: Call MD with results STAT Result Comment: Non- GFR Calc Performed By: #### L 500.4050, L501.5200 ####[facility] [address] [place], [address] Globulin (S) [Mass/Vol] 2.7 g/dL Normal 2.2-4.2 [facility] Comment on above: Order Comment: Call MD with results STAT Performed By: #### L 500.4050, L501.5200 ####[facility] [address] [place], [address] Glucose [Mass/Vol] 142 mg/dL High 74-106 [facility] Comment on above: Order Comment: Call MD with results STAT Result Comment: Fast ing Glucose result greater than or equal to 126 mg/dLsuggests DIABETES MELLITUS per A.D.A. criteria. Performed By: #### L 500.4050, L501.5200 ####[facility] [address] [place], [address] Potassium [Moles/Vol] 3.0 mmol/L Low 3.5-5.1 [facility] Comment on above: Order Comment: Call MD with results STAT Performed By: #### L 500.4050, L501.5200 ####[facility] [address] [place], [address] Sodium [Moles/Vol] 139 mmol/L Normal 136-145 [facility] Comment on above: Order Comment: Call MD with results STAT Performed By: #### L 500.4050, L501.5200 ####[facility] [address] [place], [address] T PROT 5.7 g/dL Low 6.4-8.2 [facility] Comment on above: Order Comment: Call MD with results STAT Performed By: #### L 500.4050, L501.5200 ####[facility] [address] [place], [address] Urea nitrogen [Mass/Vol] 10 mg/dL Normal - [facility] Comment on above: Order Comment: Call MD with results STAT Performed By: #### L 500.4050, L501.5200 ####[facility] [address] [place], [address] Magnesiumon 06-09-2024 Magnesium [Mass/Vol] 2.0 mg/dL Normal 1.6-2.6 [facility] Comment on above: Order Comment: Call MD with results STAT Performed By: #### L 500.4050, L501.5200 ####[facility] [address] [place], [address] Phosphoruson 06-09-2024 Phosphate [Mass/Vol] 1.2 mg/dL Low 2.5-4.9 [facility] Comment on above: Performed By: #### L 501.2300, L100.0100 ####[facility] [address] [place], [address] Acetone Serumon 06-08-2024 ACETONE SERUM SMALL Abnormal NEG [facility] Comment on above: Order Comment: Comme nts: If not done in the ED Performed By: #### L 501.6900 ####[facility] [address] [place], [address] Basic Metabolic Profile (BMP )on 06-08-2024 BUN Normal 03-14 [facility] Comment on above: Order Comment: Call MD with results STAT Result Comment: NOT COLLECTED. Performed By: #### L 500.2500 ####[facility] [address] [place], [address] BUN/CRE Normal 06-16 [facility] Comment on above: Order Comment: Call MD with results STAT Result Comment: NOT COLLECTED. Performed By: #### L 500.2500 ####[facility] [address] [place], [address] CA,Total Normal 8.5-10.1 [facility] Comment on above: Order Comment: Call MD with results STAT Result Comment: NOT COLLECTED. Performed By: #### L 500.2500 ####[facility] [address] [place], [address] CL Normal 98-107 [facility] Comment on above: Order Comment: Call MD with results STAT Result Comment: NOT COLLECTED. Performed By: #### L 500.2500 ####[facility] [address] [place], [address] CO2 Normal 21.0-32.0 [facility] Comment on above: Order Comment: Call MD with results STAT Result Comment: NOT COLLECTED. Performed By: #### L 500.2500 ####[facility] [address] [place], [address] CREAT,SERUM Normal 0.55-1.02 [facility] Comment on above: Order Comment: Call MD with results STAT Result Comment: NOT COLLECTED. Performed By: #### L 500.2500 ####[facility] [address] [place], [address] EST GFR Normal >60 [facility] Comment on above: Order Comment: Call MD with results STAT Result Comment: NOT COLLECTED. Performed By: #### L 500.2500 ####[facility] [address] [place], [address] EST GFR - AA Normal >60 [facility] Comment on above: Order Comment: Call MD with results STAT Result Comment: NOT COLLECTED. Performed By: #### L 500.2500 ####[facility] [address] [place], [address] GAP Normal 5-15 [facility] Comment on above: Order Comment: Call MD with results STAT Result Comment: NOT COLLECTED. Performed By: #### L 500.2500 ####[facility] [address] [place], [address] GLU Normal 74-106 [facility] Comment on above: Order Comment: Call MD with results STAT Result Comment: NOT COLLECTED. Performed By: #### L 500.2500 ####[facility] [address] [place], [address] Potassium Normal 3.5-5.1 [facility] Comment on above: Order Comment: Call MD with results STAT Result Comment: NOT COLLECTED. Performed By: #### L 500.2500 ####[facility] [address] [place], [address] Basic Metabolic Profile (BMP) Normal 136-145 [facility] Comment on above: Order Comment: Call MD with results STAT Result Comment: NOT COLLECTED. Performed By: #### L 500.2500 ####[facility] [address] [place], [address] BUN Normal 7-18 [facility] Comment on above: Order Comment: Call MD with results STAT Result Comment: NOT COLLECTED. Performed By: #### L 500.2500 ####[facility] [address] [place], [address] BUN/CRE Normal 10-20 [facility] Comment on above: Order Comment: Call MD with results STAT Result Comment: NOT COLLECTED. Performed By: #### L 500.2500 ####[facility] [address] [place], [address] CA,Total Normal 8.5-10.1 [facility] Comment on above: Order Comment: Call MD with results STAT Result Comment: NOT COLLECTED. Performed By: #### L 500.2500 ####[facility] [address] [place], [address] CL Normal 98-107 [facility] Comment on above: Order Comment: Call MD with results STAT Result Comment: NOT COLLECTED. Performed By: #### L 500.2500 ####[facility] [address] [place], [address] CO2 Normal 21.0-32.0 [facility] Comment on above: Order Comment: Call MD with results STAT Result Comment: NOT COLLECTED. Performed By: #### L 500.2500 ####[facility] [address] [place], [address] CREAT,SERUM Normal 0.55-1.02 [facility] Comment on above: Order Comment: Call MD with results STAT Result Comment: NOT COLLECTED. Performed By: #### L 500.2500 ####[facility] [address] [place], [address] EST GFR Normal >60 [facility] Comment on above: Order Comment: Call MD with results STAT Result Comment: NOT COLLECTED. Performed By: #### L 500.2500 ####[facility] [address] [place], [address] EST GFR - AA Normal >60 [facility] Comment on above: Order Comment: Call MD with results STAT Result Comment: NOT COLLECTED. Performed By: #### L 500.2500 ####[facility] [address] [place], [address] GAP Normal 5-15 [facility] Comment on above: Order Comment: Call MD with results STAT Result Comment: NOT COLLECTED. Performed By: #### L 500.2500 ####[facility] [address] [place], [address] GLU Normal 74-106 [facility] Comment on above: Order Comment: Call MD with results STAT Result Comment: NOT COLLECTED. Performed By: #### L 500.2500 ####[facility] [address] [place], [address] Potassium Normal 3.5-5.1 [facility] Comment on above: Order Comment: Call MD with results STAT Result Comment: NOT COLLECTED. Performed By: #### L 500.2500 ####[facility] [address] [place], [address] Basic Metabolic Profile (BMP) Normal 136-145 [facility] Comment on above: Order Comment: Call MD with results STAT Result Comment: NOT COLLECTED. Performed By: #### L 500.2500 ####[facility] [address] [place], [address] BUN/CRE 19.6 RATIO Normal 10-20 [facility] Comment on above: Performed By: #### L 500.2500 ####[facility] [address] [place], [address] CA,Total 8.0 mg/dL Low 8.5-10.1 [facility] Comment on above: Performed By: #### L 500.2500 ####[facility] [address] [place], [address] Chloride [Moles/Vol] 112 mmol/L High 98-107 [facility] Comment on above: Performed By: #### L 500.2500 ####[facility] [address] [place], [address] CO2 [Moles/Vol] 18.0 mmol/L Low 21.0-32.0 [facility] Comment on above: Performed By: #### L 500.2500 ####[facility] [address] [place], [address] Creatinine [Mass/Vol] 0.87 mg/dL Normal 0.55-1.02 [facility] Comment on above: Result Comment: The validity of the calculated GFR GFRAA in patients over70 years has not been determined. Clinical correlation isessential. Performed By: #### L 500.2500 ####[facility] [address] [place], [address] ECRCL 99.71 ml/min Normal [facility] Comment on above: Performed By: #### L 500.2500 ####[facility] [address] [place], [address] EST GFR - AA 99 mL/min Normal >60 [facility] Comment on above: Result Comment: Afri can Brazilian GFR Calc Performed By: #### L 500.2500 ####[facility] [address] [place], [address] GAP 10 Normal 5-15 [facility] Comment on above: Performed By: #### L 500.2500 ####[facility] [address] [place], [address] GFR/1.73 sq M.predicted among non-blacks MDRD (S/P/Bld) [Vol rate/Area] 82 mL/min/{1.73_m2} Normal >60 [facility] Comment on above: Result Comment: Non- GFR Calc Performed By: #### L 500.2500 ####[facility] [address] [place], [address] Glucose [Mass/Vol] 189 mg/dL High 74-106 [facility] Comment on above: Result Comment: Fast ing Glucose result greater than or equal to 126 mg/dLsuggests DIABETES MELLITUS per A.D.A. criteria. Performed By: #### L 500.2500 ####[facility] [address] [place], [address] Potassium [Moles/Vol] 3.8 mmol/L Normal 3.5-5.1 [facility] Comment on above: Performed By: #### L 500.2500 ####[facility] [address] [place], [address] Sodium [Moles/Vol] 140 mmol/L Normal 136-145 [facility] Comment on above: Performed By: #### L 500.2500 ####[facility] [address] [place], [address] Urea nitrogen [Mass/Vol] 17 mg/dL Normal 7-18 [facility] Comment on above: Performed By: #### L 500.2500 ####[facility] [address] [place], [address] BUN Normal 7-18 [facility] Comment on above: Order Comment: Call MD with results STAT Result Comment: NOT COLLECTED. Performed By: #### L 500.2500 ####[facility] [address] [place], [address] BUN/CRE Normal 10-20 [facility] Comment on above: Order Comment: Call MD with results STAT Result Comment: NOT COLLECTED. Performed By: #### L 500.2500 ####[facility] [address] [place], [address] CA,Total Normal 8.5-10.1 [facility] Comment on above: Order Comment: Call MD with results STAT Result Comment: NOT COLLECTED. Performed By: #### L 500.2500 ####[facility] [address] [place], [address] CL Normal 98-107 [facility] Comment on above: Order Comment: Call MD with results STAT Result Comment: NOT COLLECTED. Performed By: #### L 500.2500 ####[facility] [address] [place], [address] CO2 Normal 21.0-32.0 [facility] Comment on above: Order Comment: Call MD with results STAT Result Comment: NOT COLLECTED. Performed By: #### L 500.2500 ####[facility] [address] [place], [address] CREAT,SERUM Normal 0.55-1.02 [facility] Comment on above: Order Comment: Call MD with results STAT Result Comment: NOT COLLECTED. Performed By: #### L 500.2500 ####[facility] [address] [place], [address] EST GFR Normal >60 [facility] Comment on above: Order Comment: Call MD with results STAT Result Comment: NOT COLLECTED. Performed By: #### L 500.2500 ####[facility] [address] [place], [address] EST GFR - AA Normal >60 [facility] Comment on above: Order Comment: Call MD with results STAT Result Comment: NOT COLLECTED. Performed By: #### L 500.2500 ####[facility] [address] [place], [address] GAP Normal 5-15 [facility] Comment on above: Order Comment: Call MD with results STAT Result Comment: NOT COLLECTED. Performed By: #### L 500.2500 ####[facility] [address] [place], [address] GLU Normal 74-106 [facility] Comment on above: Order Comment: Call MD with results STAT Result Comment: NOT COLLECTED. Performed By: #### L 500.2500 ####[facility] [address] [place], [address] Potassium Normal 3.5-5.1 [facility] Comment on above: Order Comment: Call MD with results STAT Result Comment: NOT COLLECTED. Performed By: #### L 500.2500 ####[facility] [address] [place], [address] Basic Metabolic Profile (BMP) Normal 136-145 [facility] Comment on above: Order Comment: Call MD with results STAT Result Comment: NOT COLLECTED. Performed By: #### L 500.2500 ####[facility] [address] [place], [address] BUN/CRE 19.6 RATIO Normal 10-20 [facility] Comment on above: Order Comment: Call MD with results STAT Performed By: #### L 500.2500 ####[facility] [address] [place], [address] CA,Total 7.9 mg/dL Low 8.5-10.1 [facility] Comment on above: Order Comment: Call MD with results STAT Performed By: #### L 500.2500 ####[facility] [address] [place], [address] Chloride [Moles/Vol] 112 mmol/L High 98-107 [facility] Comment on above: Order Comment: Call MD with results STAT Performed By: #### L 500.2500 ####[facility] [address] [place], [address] CO2 [Moles/Vol] 17.0 mmol/L Low 21.0-32.0 [facility] Comment on above: Order Comment: Call MD with results STAT Performed By: #### L 500.2500 ####[facility] [address] [place], [address] Creatinine [Mass/Vol] 1.02 mg/dL Normal 0.55-1.02 [facility] Comment on above: Order Comment: Call MD with results STAT Result Comment: The validity of the calculated GFR GFRAA in patients over70 years has not been determined. Clinical correlation isessential. Performed By: #### L 500.2500 ####[facility] [address] [place], [address] ECRCL 82.09 ml/min Normal [facility] Comment on above: Order Comment: Call MD with results STAT Performed By: #### L 500.2500 ####[facility] [address] [place], [address] EST GFR - AA 82 mL/min Normal >60 [facility] Comment on above: Order Comment: Call MD with results STAT Result Comment: Afri can Brazilian GFR Calc Performed By: #### L 500.2500 ####[facility] [address] [place], [address] GAP 10 Normal 5-15 [facility] Comment on above: Order Comment: Call MD with results STAT Performed By: #### L 500.2500 ####[facility] [address] [place], [address] GFR/1.73 sq M.predicted among non-blacks MDRD (S/P/Bld) [Vol rate/Area] 68 mL/min/{1.73_m2} Normal >60 [facility] Comment on above: Order Comment: Call MD with results STAT Result Comment: Non- GFR Calc Performed By: #### L 500.2500 ####[facility] [address] [place], [address] Glucose [Mass/Vol] 168 mg/dL High 74-106 [facility] Comment on above: Order Comment: Call MD with results STAT Result Comment: Fast ing Glucose result greater than or equal to 126 mg/dLsuggests DIABETES MELLITUS per A.D.A. criteria. Performed By: #### L 500.2500 ####[facility] [address] [place], [address] Potassium [Moles/Vol] 3.7 mmol/L Normal 3.5-5.1 [facility] Comment on above: Order Comment: Call MD with results STAT Performed By: #### L 500.2500 ####[facility] [facility] [address] [place], [address] Sodium [Moles/Vol] 139 mmol/L Normal 136-145 [facility] Comment on above: Order Comment: Call MD with results STAT Performed By: #### L 500.2500 ####[facility] [address] [place], [address] Urea nitrogen [Mass/Vol] 20 mg/dL High 7-18 [facility] Comment on above: Order Comment: Call MD with results STAT Performed By: #### L 500.2500 ####[facility] [address] [place], [address] Bedside Glucoseon 06-08-2024 FINGERSTICK GLU 191 mg/dL High 74-106 [facility] Comment on above: Result Comment: EDGAR HUNG OF PATIENT CARE PER NURSING PROTOCOL Performed By: #### L 501.080 ####[facility] [address] [place], [address] FINGERSTICK GLU 198 mg/dL High 74-106 [facility] Comment on above: Result Comment: EDGAR GEMENT OF PATIENT CARE PER NURSING PROTOCOL Performed By: #### L 501.080 ####[facility] [address] [place], [address] FINGERSTICK GLU 247 mg/dL High 74-106 [facility] Comment on above: Result Comment: EDGAR GEMENT OF PATIENT CARE PER NURSING PROTOCOL Performed By: #### L 501.080 ####[facility] [address] [place], [address] FINGERSTICK GLU 252 mg/dL High -106 [facility] Comment on above: Result Comment: EDGAR GEMENT OF PATIENT CARE PER NURSING PROTOCOL Performed By: #### L 501.080 ####[facility] [address] [place], [address] FINGERSTICK GLU 205 mg/dL High 74-106 [facility] Comment on above: Result Comment: EDGAR GEMENT OF PATIENT CARE PER NURSING PROTOCOL Performed By: #### L 501.080 ####[facility] [address] [place], [address] FINGERSTICK GLU 151 mg/dL High 74-106 [facility] Comment on above: Result Comment: EDGAR GEMENT OF PATIENT CARE PER NURSING PROTOCOL Performed By: #### L 501.080 ####[facility] [address] [place], [address] FINGERSTICK GLU 176 mg/dL High -106 [facility] Comment on above: Result Comment: EDGAR GEMENT OF PATIENT CARE PER NURSING PROTOCOL Performed By: #### L 501.080 ####[facility] [address] [place], [address] FINGERSTICK GLU 121 mg/dL High 74-106 [facility] Comment on above: Result Comment: EDGAR GEMENT OF PATIENT CARE PER NURSING PROTOCOL Performed By: #### L 501.080 ####[facility] [address] [place], [address] FINGERSTICK GLU 108 mg/dL High 74-106 [facility] Comment on above: Result Comment: EDGAR GEMENT OF PATIENT CARE PER NURSING PROTOCOL Performed By: #### L 501.080 ####[facility] [address] [place], [address] FINGERSTICK GLU 114 mg/dL High 74-106 [facility] Comment on above: Result Comment: EDGAR GEMENT OF PATIENT CARE PER NURSING PROTOCOL Performed By: #### L 501.080 ####[facility] [address] [place], [address] FINGERSTICK GLU 236 mg/dL High 74-106 [facility] Comment on above: Result Comment: EDGAR GEMENT OF PATIENT CARE PER NURSING PROTOCOL Performed By: #### L 501.080 ####[facility] [address] [place], [address] FINGERSTICK GLU 251 mg/dL High 74-106 [facility] Comment on above: Result Comment: EDGAR GEMENT OF PATIENT CARE PER NURSING PROTOCOL Performed By: #### L 501.080 ####[facility] [address] [place], [address] FINGERSTICK GLU 261 mg/dL High 74-106 [facility] Comment on above: Result Comment: EDGAR GEMENT OF PATIENT CARE PER NURSING PROTOCOL Performed By: #### L 501.080 ####[facility] [address] [place], [address] FINGERSTICK GLU 402 mg/dL High 74-106 [facility] Comment on above: Result Comment: EDGAR GEMENT OF PATIENT CARE PER NURSING PROTOCOL Performed By: #### L 501.080 ####[facility] [address] [place], [address] FINGERSTICK GLU 324 mg/dL High 74-106 [facility] Comment on above: Result Comment: EDGAR HUNG OF PATIENT CARE PER NURSING PROTOCOL Performed By: #### L 501.080 ####[facility] [address] [place], [address] Blood Gases by [facility] 024 GEM TEST Positive Normal [facility] Comment on above: Performed By: #### L 9000.0800 ####[facility] [address] [place], [address] Base excess Calc (Bld) [Moles/Vol] -14 mmol/L Low -2 to +2 [facility] Comment on above: Performed By: #### L 9000.0800 ####[facility] [address] [place], [address] Blood Gas Type ART Normal [facility] Comment on above: Performed By: #### L 9000.0800 ####[facility] [address] [place], [address] CO2 [Moles/Vol] 11 mmol/L [facility] Comment on above: Performed By: #### L 9000.0800 ####[facility] [address] [place], [address] FI02 21.0 Normal [facility] Comment on above: Performed By: #### L 9000.0800 ####[facility] [address] [place], [address] HCO3 (Bld) [Moles/Vol] 10.7 mmol/L Low 22-26 [facility] Comment on above: Performed By: #### L 9000.0800 ####[facility] [address] [place], [address] Mode Not entered Normal [facility] Comment on above: Performed By: #### L 9000.0800 ####[facility] [address] [place], [address] O2 Delivery Dev Room Air Normal [facility] Comment on above: Performed By: #### L 9000.0800 ####[facility] [address] [place], [address] pCO2 17.9 mmHg Invalid Interpretation Code 35-45 [facility] Comment on above: Performed By: #### L 9000.0800 ####[facility] [address] [place], [address] pH (Bld) 7.39 [pH] Normal 7.35-7.45 [facility] Comment on above: Performed By: #### L 9000.0800 ####[facility] [address] [place], [address] PO2 114 mmHG High 75-100 [facility] Comment on above: Performed By: #### L 9000.0800 ####[facility] [address] [place], [address] Read Back By Yes [facility] Comment on above: Performed By: #### L 9000.0800 ####[facility] [address] [place], [address] Results To denia [facility] Comment on above: Performed By: #### L 9000.0800 ####[facility] [address] [place], [address] SITE L Radial Normal [facility] Comment on above: Performed By: #### L 9000.0800 ####[facility] [address] [place], [address] SO2 99 Normal 95-99 [facility] Comment on above: Performed By: #### L 9000.0800 ####[facility] [address] [place], [address] Time Given 09:45:00 Normal [facility] Comment on above: Performed By: #### L 9000.0800 ####[facility] [address] [place], [address] CBC W/Diff, Automatedon 10-1 Absolute Lymph 0.71 X10 3/uL Low 0.83-4.51 [facility] Comment on above: Performed By: #### L 500.4050, L100.0100, L501.5200 ####[facility] [address] [place], [address] Absolute Neut 19.8 X10 3/uL High 2.0-7.7 [facility] Comment on above: Performed By: #### L 500.4050, L100.0100, L501.5200 ####[facility] [address] [place], [address] Basophils/100 WBC (Bld) 0.1 % Normal 0-1 [facility] Comment on above: Performed By: #### L 500.4050, L100.0100, L501.5200 ####[facility] [address] [place], [address] Eosinophils/100 WBC (Bld) 0.0 % Normal 0-5 [facility] Comment on above: Performed By: #### L 500.4050, L100.0100, L501.5200 ####[facility] [address] [place], [address] Erythrocyte distribution width (RBC) [Ratio] 12.9 % Normal 11.6-14.6 [facility] Comment on above: Performed By: #### L 500.4050, L100.0100, L501.5200 ####[facility] [address] [place], [address] Hematocrit (Bld) [Volume fraction] 41.0 % Normal 37-47 [facility] Comment on above: Performed By: #### L 500.4050, L100.0100, L501.5200 ####[facility] [address] [place], [address] Hemoglobin (Bld) [Mass/Vol] 13.2 g/dL Normal 12.0-15.0 [facility] Comment on above: Performed By: #### L 500.4050, L100.0100, L501.5200 ####[facility] [address] [place], [address] IG% 0.900 Normal 0.0-0.9 [facility] Comment on above: Result Comment: IG% - Immature Granulocytes (promyelocytes, myelocytes andmetamyelocytes) > 1% indicates that a LEFT SHIFT is Present. Performed By: #### L 500.4050, L100.0100, L501.5200 ####[facility] [address] [place], [address] Lymphocytes/100 WBC (Bld) 3.3 % Low 19-41 [facility] Comment on above: Performed By: #### L 500.4050, L100.0100, L501.5200 ####[facility] [address] [place], [address] MCH (RBC) [Entitic mass] 29.7 pg Normal 27.0-32.0 [facility] Comment on above: Performed By: #### L 500.4050, L100.0100, L501.5200 ####[facility] [address] [place], [address] MCHC (RBC) [Mass/Vol] 32.2 g/dL Normal 32-36 [facility] Comment on above: Performed By: #### L 500.4050, L100.0100, L501.5200 ####[facility] [address] [place], [address] MCV (RBC) [Entitic vol] 92.1 fL Normal 81-99 [facility] Comment on above: Performed By: #### L 500.4050, L100.0100, L501.5200 ####[facility] [address] [place], [address] Monocytes/100 WBC (Bld) 4.9 % Normal 0-10 [facility] Comment on above: Performed By: #### L 500.4050, L100.0100, L501.5200 ####[facility] [address] [place], [address] Neutrophils/100 WBC (Bld) 90.8 % High 47-70 [facility] Comment on above: Performed By: #### L 500.4050, L100.0100, L501.5200 ####[facility] [address] [place], [address] Nucleated RBC (Bld) [#/Vol] 0 10*3/uL Normal 0-5 [facility] Comment on above: Performed By: #### L 500.4050, L100.0100, L501.5200 ####[facility] [address] [place], [address] Platelet mean volume (Bld) [Entitic vol] 13.6 fL High 6.2-12.0 [facility] Comment on above: Performed By: #### L 500.4050, L100.0100, L501.5200 ####[facility] [address] [place], [address] Platelets (Bld) [#/Vol] 171 10*3/uL Normal 150-450 [facility] Comment on above: Performed By: #### L 500.4050, L100.0100, L501.5200 ####[facility] [address] [place], [address] RBC (Bld) [#/Vol] 4.45 10*6/uL Normal 4.2-5.4 [facility] Comment on above: Performed By: #### L 500.4050, L100.0100, L501.5200 ####[facility] [address] [place], [address] RDW SD 43.6 fl Normal 35.1-43.9 [facility] Comment on above: Performed By: #### L 500.4050, L100.0100, L501.5200 ####[facility] [address] [place], [address] WBC (Bld) [#/Vol] 21.8 10*3/uL High 4.4-11.0 [facility] Comment on above: Performed By: #### L 500.4050, L100.0100, L501.5200 ####[facility] [address] [place], [address] Comprehensive Metabolic Prof [facility] 06-08-2024 Albumin [Mass/Vol] 3.9 g/dL Normal 3.2-5.0 [facility] Comment on above: Performed By: #### L 500.4050, L100.0100, L501.5200 ####[facility] [address] [place], [address] Albumin/Globulin [Mass ratio] 1.2 {ratio} Normal 0.9-2.4 [facility] Comment on above: Performed By: #### L 500.4050, L100.0100, L501.5200 ####[facility] [address] [place], [address] ALK P 90 U/L Normal 45-117 [facility] Comment on above: Performed By: #### L 500.4050, L100.0100, L501.5200 ####[facility] [address] [place], [address] ALT [Catalytic activity/Vol] 21 U/L Normal 13-56 [facility] Comment on above: Performed By: #### L 500.4050, L100.0100, L501.5200 ####[facility] [address] [place], [address] AST [Catalytic activity/Vol] 15 U/L Normal 15-37 [facility] Comment on above: Performed By: #### L 500.4050, L100.0100, L501.5200 ####[facility] [address] [place], [address] Bilirubin [Mass/Vol] 1.30 mg/dL High 0.20-1.00 [facility] Comment on above: Result Comment: For patients on eltrombopag therapy, use of Dimension Liberty TBIL is not recommended. Performed By: #### L 500.4050, L100.0100, L501.5200 ####[facility] [address] [place], [address] BUN/CRE 22.0 RATIO High 10-20 [facility] Comment on above: Performed By: #### L 500.4050, L100.0100, L501.5200 ####[facility] [address] [place], [address] CA,Total 8.9 mg/dL Normal 8.5-10.1 [facility] Comment on above: Performed By: #### L 500.4050, L100.0100, L501.5200 ####[facility] [address] [place], [address] Chloride [Moles/Vol] 100 mmol/L Normal 98-107 [facility] Comment on above: Performed By: #### L 500.4050, L100.0100, L501.5200 ####[facility] [address] [place], [address] CO2 [Moles/Vol] 12.0 mmol/L Low 21.0-32.0 [facility] Comment on above: Performed By: #### L 500.4050, L100.0100, L501.5200 ####[facility] [address] [place], [address] Creatinine [Mass/Vol] 1.00 mg/dL Normal 0.55-1.02 [facility] Comment on above: Result Comment: The validity of the calculated GFR GFRAA in patients over70 years has not been determined. Clinical correlation isessential. Performed By: #### L 500.4050, L100.0100, L501.5200 ####[facility] [address] [place], [address] ECRCL 83.74 ml/min Normal [facility] Comment on above: Performed By: #### L 500.4050, L100.0100, L501.5200 ####[facility] [address] [place], [address] EST GFR - AA 84 mL/min Normal >60 [facility] Comment on above: Result Comment: Afri can Brazilian GFR Calc Performed By: #### L 500.4050, L100.0100, L501.5200 ####[facility] [address] [place], [address] GAP 18 High 5-15 [facility] Comment on above: Performed By: #### L 500.4050, L100.0100, L501.5200 ####[facility] [address] [place], [address] GFR/1.73 sq M.predicted among non-blacks MDRD (S/P/Bld) [Vol rate/Area] 69 mL/min/{1.73_m2} Normal >60 [facility] Comment on above: Result Comment: Non- GFR Calc Performed By: #### L 500.4050, L100.0100, L501.5200 ####[facility] [address] [place], [address] Globulin (S) [Mass/Vol] 3.2 g/dL Normal 2.2-4.2 [facility] Comment on above: Performed By: #### L 500.4050, L100.0100, L501.5200 ####[facility] [address] [place], [address] Glucose [Mass/Vol] 398 mg/dL High 74-106 [facility] Comment on above: Result Comment: Gluc ose result greater than or equal to 200 mg/dLsuggests DIABETES MELLITUS per A.D.A. criteria. Performed By: #### L 500.4050, L100.0100, L501.5200 ####[facility] [address] [place], [address] Potassium [Moles/Vol] 4.2 mmol/L Normal 3.5-5.1 [facility] Comment on above: Performed By: #### L 500.4050, L100.0100, L501.5200 ####[facility] [address] [place], [address] Sodium [Moles/Vol] 131 mmol/L Low 136-145 [facility] Comment on above: Performed By: #### L 500.4050, L100.0100, L501.5200 ####[facility] [address] [place], [address] T PROT 7.1 g/dL Normal 6.4-8.2 [facility] Comment on above: Performed By: #### L 500.4050, L100.0100, L501.5200 ####[facility] [address] [place], [address] Urea nitrogen [Mass/Vol] 22 mg/dL High 7-18 [facility] Comment on above: Performed By: #### L 500.4050, L100.0100, L501.5200 ####[facility] [address] [place], [address] Hemoglobin A1con 06-08-2024 HbA1c (Bld) [Mass fraction] 8.6 % High 3.8-5.6 [facility] Comment on above: Result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 FLUARIX, FLULAVAL, FLUZONE) 11/05/2019 influenza (LAIV) vaccine, nasal, unspecified formulation 05/30/2016 meningococcal (MenACWY-D) vaccine, quadrivalent (MENACTRA) 11/03/2009 pneumococcal polysaccharide (PPV23) vaccine, 23 valent (PNEUMOVAX 23) 01/01/2013 tetanus diphtheria pertussis (Tdap) vaccine, age 7+ yr (ADACEL, BOOSTRIX) 04/16/2014 Pended Date(s) Pended influenza vaccine, unspecified formulation 05/27/2013 pneumococcal polysaccharide (PPV23) vaccine, 23 valent (PNEUMOVAX 23) 05/27/2013 CC: type 1 DM BG Values: Average Hypoglycemia: Yes Can detect Adrenergic symptoms Diet: No specific diet regimen Exercise: actively walks daily Eye Exam: no Podiatry: no BP Controlled (<130/80) Never done HPV Vaccine(3 - 3-dose series) due on 12/11/2012 Hepatitis B Vaccine(1 of 3 - 19+ 3-dose series) Never done Pneumococcal Vaccine(2 of 2 - PCV) due on 01/01/2014 Urine Albumin:Creatinine Ratio due on 03/21/2018 Dilated Retinal Exam due on 12/23/2020 LDL Cholesterol due on 02/04/2022 Covid-19 Vaccine( season) Never done Diabetic Foot Exam due on 08/16/2023 Behavioral Health Screening Never done Annual PCP Team Chronic Disease Visit due on 01/21/2024 DTaP,Tdap,Td Vaccine(3 - Td or Tdap) due on 04/16/2024 Influenza Vaccine(1) due on 04/28/2024 HbA1C due on 06/13/2024 Cervical Cancer Screening due on 05/10/2025 Hepatitis C Screening Completed HIV Screening Completed REVIEW OF SYSTEMS: VISUAL SYMPTOMS No blurred vision or diplopia CHEST: No chest pain, dyspnea, palpitations or edema ABDOMEN: Positive for gastroparesis UROLOGICAL: no dysuria, polyuria, frequency, or nocturia EXTREMITIES no pain, numbness, burning, or edema FEET: no pain, deformity, ulceration, callus, or toenail problem SEXUAL/REPRODUCTIVE: normal Lipohypertrophy at injection sites: No Past medical history unchanged compared to last visit. Social history is unchanged compared to last visit. Family history unchanged compared to last visit. PHYSICAL EXAMINATION: LMP 11/26/2022 (Exact Date) BP 100/58 (BP Site: Left Arm, BP Position: Sitting) Pulse 69 Ht 175.3 cm (5' 9) Wt 78 kg (171 lb 15.3 oz) LMP 11/26/2022 (Exact Date) SpO2 97% BMI 25.39 kg/m? Labs: HbA1c. TSH. Creatinine. ALT. Albumin to creatinine ratio. Cholesterol. TSH (UIU/ML) Date Value 06/03/2021 6.118 02/04/2021 3.712 08/14/2019 4.480 ALT (U/L) Date Value 07/12/2023 74 04/05/2023 87 02/03/2023 19 01/29/2022 28 12/27/2021 13 12/25/2021 13 Potassium Date Value 07/12/2023 4.0 mmol/L 04/05/2023 4.0 mmol/L 02/04/2023 3.4 mmol/L 02/01/2022 3.7 MMOL/L 01/31/2022 3.7 MMOL/L 01/30/2022 3.2 MMOL/L Hemoglobin A1C (%) Date Value 12/30/2021 6.2 02/04/2021 6.1 10/06/2020 6.7 Hemoglobin A1C (POCT) (%) Date Value 12/13/2023 7.1 09/12/2023 6.4 05/31/2023 7.2 Creatinine Date Value 07/12/2023 0.63 mg/dL 04/05/2023 0.69 mg/dL 02/04/2023 0.58 mg/dL 02/01/2022 0.64 MG/DL 01/31/2022 0.61 MG/DL 01/30/2022 0.68 MG/DL Albumin, Urine Random (mg/L) Date Value 03/21/2017 25.6 Microalbumin, Urine Random (UG/ML) Date Value 05/06/2019 LESS THAN 5.0 Albumin/Creat Ratio (mg/g) Date Value 03/21/2017 28 Glucose Date Value 07/12/2023 313 mg/dL 04/05/2023 79 mg/dL 02/04/2023 271 mg/dL 02/01/2022 104 MG/DL 01/31/2022 167 MG/DL 01/30/2022 87 MG/DL 08/31/2015 287 mg/dL Lipids: Cholesterol, Total Date Value 02/04/2021 161 MG/dL 08/14/2019 228 MG/DL HDL Cholesterol (MG/DL) Date Value 02/04/2021 36 08/14/2019 38 LDL Cholesterol (MG/DL) Date Value 02/04/2021 108 08/14/2019 149 Trigly (more content not included)... Normal [facility] HEMOGLOBIN A1C (POC)on 03-12 HbA1c (Bld) [Mass fraction] 8.8 % Abnormal 4.3 - 5.6 % [facility] Comment on above: Location:[address], [place], [place], [address] Point of care (POC) Hemoglobin A1c (HGBA1C) testing is intended to assess glucose control and provide a management tool for patients known to have diabetes and their healthcare providers. Target HGBA1C levels may depend on specific clinical circumstances. POC HGBA1C is not intended for use as a diagnostic or screening test; laboratory-based testing should be used for diagnostic purposes. The following information is supplemental and may not be applicable to specific diabetes management situations: The POC device bottle house cleaners supervisor provides a normal range of 4.2% to 6.5% for the HGBA1C POC test. However, the [place] [employer] guidelines indicate that patients with HGBA1C in the range of 5.7% to 6.4% are at increased risk for development of diabetes and that intervention by lifestyle modification may be beneficial. A HGBA1C level greater than or equal to 6.5% is considered diagnostic of diabetes, pending confirmatory testing. Use of HGBA1C testing to evaluate glucose control may not be appropriate for patients with hemoglobin variants or other conditions (e.g. anemia) that alter red blood cell lifespan. Interpretation and review of laboratory results Abnormal [facility] CNPNon 03-02-2024 CNPN Telephone (ENDOIN) KATHLEEN VILLA ([id number]) 1995 F CHT Date Time Provider Department 03/02/24 KVNG LEWIS During your visit today, we recorded the following information about you: Anahi Liriano 03/02/2024 11:51 AM Signed Patient has been identified by name and date of : Yes Type of form: Medical Necessity [employer] Form received via: Fax When form is completed, fax form to fax number provided. Form has been forwarded to: Re Garcia RN 03/04/2024 11:26 AM Signed On your desk. Please sign Kvng Lewis MD 03/05/2024 2:04 PM Signed Signed Estrellita Mcclendon RN 03/05/2024 2:33 PM Signed Faxed and filed. Allergies As of Date: 03/02/2024 Noted Allergy Reaction KEFLEX (CEPHALEXIN) 11/12/2013 14 - Other: See Comments Comments: Yeast infection MORPHINE 08/30/2013 2 - Rash 9 - Itching ZOFRAN (ONDANSETRON HCL (PF)) 01/14/2015 14 - Other: See Comments Comments: Syncope, incontinence ADHESIVE TAPE (ROSINS) 09/04/2013 2 - Rash INDOMETHACIN 11/20/2003 2 - Rash PERCOCET (OXYCODONE-ACETAMINOPH EN)01/10/2014 2 - Rash 5 - Intolerance 9 - Itching ADHESIVE 11/07/2022 2 - Rash Date Reviewed: 12/13/2023 Reviewed by: Avery, Jessica, COMPUTER SYSTEMS TECHNOLOGY INSTRUCTOR.TECHNICAL PROGRAMS MANAGER - Fully Assessed Reason for Visit: Forms [913] Prescriptions as of 03/05/2024 - insulin lispro (HUMALOG U-100 INSULIN) 100 unit/mL injection Use in the Insulin Pump for TDD of 100 units. - insulin glargine 100 unit/mL (3 mL) Inject 43 Units subcutaneously as directed in the event of Insulin pump failure. - Needle, Disp, 23 G 23 gauge x 1 ndle Use to inject Solucortef intramuscularly - promethazine (PHENERGAN) 25 mg tablet Take 1 tablet by mouth every 6 hours as needed. - Lancets (MICROLET LANCET) lancets Use as instructed to test blood sugar 4 times daily. E10.65 - blood sugar diagnostic (CONTOUR NEXT TEST STRIPS) test strip Use as instructed to check blood glucose 5 times daily. E10.65 - lubiprostone (AMITIZA) 8 mcg capsule Take 1 capsule by mouth twice daily with meals. - prochlorperazine (COMPAZINE) 10 mg tablet Take 1 tablet by mouth every 6 hours as needed. - glucose 4 gram chewable tablet Take 4 tablets by mouth as needed. - Acetone, Urine, Test (KETONE URINE TEST) Use as directed - SKYRIZI 150 mg/mL injection INJECT 150 MG UNDER THE SKIN EVERY 12 WEEKS Meds Comments as of 01/09/2020: All meds reviewed before sx. Pt has aye also for after sx. CL 01/09/20 IC PNV prenata plus multivitamin Problem List As Of Date 03/02/2024 Noted Resolved Retinal detachment [H33.20] 10/26/2012 12/25/2012 SUMMARY [V999.95] 12/25/2012 Acute chest pain [R07.9] 12/25/2012 Marfan syndrome [Q87.40] 12/25/2012 DM (diabetes mellitus) (HCC) [E11.9] 12/25/2012 Gastroparesis due to DM (HCC) [E11.43, K31.84] 12/25/2012 PTSD (post-traumatic stress disorder) [F43.10] 12/25/2012 DVT prophylaxis [[id number]] 12/25/2012 09/04/2013 DISPOSITION AND FOLLOW-UP [V999.01] 12/25/2012 09/04/2013 HTN (hypertension) [I10] Hypertension in , antepartum [O16.9] 09/19/2013 01/08/2014 GBS (group B Streptococcus carrier), +RV cultur*11/11/2013 04/16/2014 [Z34.90] 11/22/2013 04/16/2014 Diabetes mellitus in (HCC) [O24.919] 12/25/2013 04/16/2014 Diabetic ketoacidosis without coma associated w*01/08/2014 02/04/2023 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] 01/08/2014 DVT prophylaxis [[id number]] 02/25/2014 04/16/2014 care and examination [Z39.2] 02/25/2014 04/16/2014 Near syncope [R55] 06/17/2014 Dyspnea [R06.00] 11/04/2014 Pre-op testing [Z01.818] 11/28/2014 Atelectasis [J98.11] 12/10/2014 Fluid overload [E87.70] 12/10/2014 12/15/2014 Tachycardia, unspecified [R00.0] 12/10/2014 12/12/2014 Post-operative pain [G89.18] 12/10/2014 Anxiety [F41.9] 12/10/2014 12/13/2014 Pre-existing type 1 diabetes mellitus in pregna*08/05/2015 10/03/2018 Hereditary disease in family possibly affecting*10/07/2015 Diabetes (HCC) [E11.9] 10/30/2015 Abdominal pain complicating , antepart*11/12/2015 [Z34.90] 01/28/2016 03/06/2017 Type 1 diabetes mellitus with stable proliferat*03/17/2017 Chronic idiopathic constipation [K59.04] 11/18/2021 Menstrual irregularity [N92.6] 04/18/2022 Screening for STD (sexually transmitted disease*04/18/2022 Chronic nausea [R11.0] 04/18/2022 Type 1 diabetes mellitus with hyperglycemia, wi*08/16/2022 Insulin pump status [Z96.41] 08/16/2022 Gastroparesis [K31.84] 11/23/2022 Generalized abdominal pain [R10.84] 12/08/2022 Nausea and vomiting [R11.2] 02/01/2023 Abdominal pain, suprapubic [R10.2] 02/07/2023 Encounter Status:Closed by ESTRELLITA MCCLENDON on 03/05/24 [facility] Dipak 02-14-2024 CNPN Telephone (ENDOIN) KATHLEEN VILLA ([id number]) [address] [facility] Date Time Provider Department 02/14/24 KVNG LEWIS During your visit today, we recorded the following information about you: Jennifer Ramos 02/14/2024 1:51 PM Signed Patient stated that her 630G pump malfunctioned and she had to get a new one. Patient needs to now what settings to put the pump on. Patient can be reached at [phone] Estrellita Mcclendon, RN 02/14/2024 4:43 PM Signed Spoke with patient via phone and reviewed orders per JOSE notes. The patient is currently taking Humalog insulin via Medtronic 630G insulin pump in manual mode at the following settings to manage their diabetes: Basal rate: 00:00= 1.8 units/hr 43.2= units per 24 h basal rate Bolus: Insulin:carb ratio 00:00= 10 g/ unit Sensitivity 00:00= 30 mg/dL Blood glucose target 00:00= 100-120 mg/dL Insulin duration= 3 hrs ------- Patient verbalizes understanding. No further questions at this time. Allergies As of Date: 02/14/2024 Noted Allergy Reaction KEFLEX (CEPHALEXIN) 11/12/2013 14 - Other: See Comments Comments: Yeast infection MORPHINE 08/30/2013 2 - Rash 9 - Itching ZOFRAN (ONDANSETRON HCL (PF)) 01/14/2015 14 - Other: See Comments Comments: Syncope, incontinence ADHESIVE TAPE (ROSINS) 09/04/2013 2 - Rash INDOMETHACIN 11/20/2003 2 - Rash PERCOCET (OXYCODONE-ACETAMINOPH EN)01/10/2014 2 - Rash 5 - Intolerance 9 - Itching ADHESIVE 11/07/2022 2 - Rash Date Reviewed: 12/13/2023 Reviewed by: Jessica Guerrero APRN.TECHNICAL PROGRAMS MANAGER - Fully Assessed Reason for Visit: machine question [Other] Prescriptions as of 02/14/2024 - insulin lispro (HUMALOG U-100 INSULIN) 100 unit/mL injection Use in the Insulin Pump for TDD of 100 units. - insulin glargine 100 unit/mL (3 mL) Inject 43 Units subcutaneously as directed in the event of Insulin pump failure. - Needle, Disp, 23 G 23 gauge x 1 ndle Use to inject Solucortef intramuscularly - promethazine (PHENERGAN) 25 mg tablet Take 1 tablet by mouth every 6 hours as needed. - Lancets (MICROLET LANCET) lancets Use as instructed to test blood sugar 4 times daily. E10.65 - blood sugar diagnostic (CONTOUR NEXT TEST STRIPS) test strip Use as instructed to check blood glucose 5 times daily. E10.65 - lubiprostone (AMITIZA) 8 mcg capsule Take 1 capsule by mouth twice daily with meals. - prochlorperazine (COMPAZINE) 10 mg tablet Take 1 tablet by mouth every 6 hours as needed. - glucose 4 gram chewable tablet Take 4 tablets by mouth as needed. - Acetone, Urine, Test (KETONE URINE TEST) Use as directed - SKYRIZI 150 mg/mL injection INJECT 150 MG UNDER THE SKIN EVERY 12 WEEKS Meds Comments as of 01/09/2020: All meds reviewed before sx. Pt has aye also for after sx. CL 01/09/20 IC PNV prenata plus multivitamin Problem List As Of Date 02/14/2024 Noted Resolved Retinal detachment [H33.20] 10/26/2012 12/25/2012 SUMMARY [V999.95] 12/25/2012 Acute chest pain [R07.9] 12/25/2012 Marfan syndrome [Q87.40] 12/25/2012 DM (diabetes mellitus) (HCC) [E11.9] 12/25/2012 Gastroparesis due to DM (HCC) [E11.43, K31.84] 12/25/2012 PTSD (post-traumatic stress disorder) [F43.10] 12/25/2012 DVT prophylaxis [[id number]] 12/25/2012 09/04/2013 DISPOSITION AND FOLLOW-UP [V999.01] 12/25/2012 09/04/2013 HTN (hypertension) [I10] Hypertension in , antepartum [O16.9] 09/19/2013 01/08/2014 GBS (group B Streptococcus carrier), +RV cultur*11/11/2013 04/16/2014 [Z34.90] 11/22/2013 04/16/2014 Diabetes mellitus in (HCC) [O24.919] 12/25/2013 04/16/2014 Diabetic ketoacidosis without coma associated w*01/08/2014 02/04/2023 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] 01/08/2014 DVT prophylaxis [[id number]] 02/25/2014 04/16/2014 care and examination [Z39.2] 02/25/2014 04/16/2014 Near syncope [R55] 06/17/2014 Dyspnea [R06.00] 11/04/2014 Pre-op testing [Z01.818] 11/28/2014 Atelectasis [J98.11] 12/10/2014 Fluid overload [E87.70] 12/10/2014 12/15/2014 Tachycardia, unspecified [R00.0] 12/10/2014 12/12/2014 Post-operative pain [G89.18] 12/10/2014 Anxiety [F41.9] 12/10/2014 12/13/2014 Pre-existing type 1 diabetes mellitus in pregna*08/05/2015 10/03/2018 Hereditary disease in family possibly affecting*10/07/2015 Diabetes (HCC) [E11.9] 10/30/2015 Abdominal pain complicating , antepart*11/12/2015 [Z34.90] 01/28/2016 03/06/2017 Type 1 diabetes mellitus with stable proliferat*03/17/2017 Chronic idiopathic constipation [K59.04] 11/18/2021 Menstrual irregularity [N92.6] 04/18/2022 Screening for STD (sexually transmitted disease*04/18/2022 Chronic nausea [R11.0] 04/18/2022 Type 1 diabetes mellitus with hyperglycemia, wi*08/16/2022 Insulin pump status [Z96.41] 08/16/2022 Gastroparesis [K31.84] 11/23/2022 Generalized abdominal pain [R10.8 (more content not included)... Normal [facility] CNPNon 02-13-2024 CNPN Telephone (ENDOMN) KATHLEEN VILLA ([id number]) 1995 F CHT Date Time Provider Department 02/13/24 KRYSTAL AGUILAR During your visit today, we recorded the following information about you: Jenn Aguilar MD 02/13/2024 7:05 PM Signed Returned patient's call. Pt states her pump got water on it and stopped working. Pt requests back up medication. Lantus and Humalog sent to the pharmacy of patient's preference. Jenn Solo MD Clinical Fellow PGY-4 Endocrinology and Metabolism [place] Allergies As of Date: 02/13/2024 Noted Allergy Reaction KEFLEX (CEPHALEXIN) 11/12/2013 14 - Other: See Comments Comments: Yeast infection MORPHINE 08/30/2013 2 - Rash 9 - Itching ZOFRAN (ONDANSETRON HCL (PF)) 01/14/2015 14 - Other: See Comments Comments: Syncope, incontinence ADHESIVE TAPE (ROSINS) 09/04/2013 2 - Rash INDOMETHACIN 11/20/2003 2 - Rash PERCOCET (OXYCODONE-ACETAMINOPH EN)01/10/2014 2 - Rash 5 - Intolerance 9 - Itching ADHESIVE 11/07/2022 2 - Rash Date Reviewed: 12/13/2023 Reviewed by: Jessica Guerrero APRN.TECHNICAL PROGRAMS MANAGER - Fully Assessed Reason for Visit: Medication Problem [65] Returning Patient's Call [[phone]] Visit Diagnoses:Type 1 diabetes mellitus with hyperglycemia, with long-term current use of insulin ([facility]) [E10.65] Insulin pump status [Z96.41] Order(s):insulin lispro (HUMALOG U-100 INSULIN) 100 unit/mL injectionUse in the Insulin Pump for TDD of 100 units.Disp: 90 mLRfl: 1 insulin glargine 100 unit/mL (3 mL)Inject 43 Units subcutaneously as directed in the event of Insulin pump failure.Disp: 15 mLRfl: 1 Needle, Disp, 23 G 23 gauge x 1 ndleUse to inject Solucortef intramuscularlyDisp: 10 EachRfl: 1 Prescriptions as of 02/13/2024 - insulin lispro (HUMALOG U-100 INSULIN) 100 unit/mL injection Use in the Insulin Pump for TDD of 100 units. - insulin glargine 100 unit/mL (3 mL) Inject 43 Units subcutaneously as directed in the event of Insulin pump failure. - Needle, Disp, 23 G 23 gauge x 1 ndle Use to inject Solucortef intramuscularly - promethazine (PHENERGAN) 25 mg tablet Take 1 tablet by mouth every 6 hours as needed. - Lancets (MICROLET LANCET) lancets Use as instructed to test blood sugar 4 times daily. E10.65 - blood sugar diagnostic (CONTOUR NEXT TEST STRIPS) test strip Use as instructed to check blood glucose 5 times daily. E10.65 - lubiprostone (AMITIZA) 8 mcg capsule Take 1 capsule by mouth twice daily with meals. - prochlorperazine (COMPAZINE) 10 mg tablet Take 1 tablet by mouth every 6 hours as needed. - glucose 4 gram chewable tablet Take 4 tablets by mouth as needed. - Acetone, Urine, Test (KETONE URINE TEST) Use as directed - SKYRIZI 150 mg/mL injection INJECT 150 MG UNDER THE SKIN EVERY 12 WEEKS Meds Comments as of 01/09/2020: All meds reviewed before sx. Pt has aye also for after sx. CL 01/09/20 IC PNV prenata plus multivitamin Problem List As Of Date 02/13/2024 Noted Resolved Retinal detachment [H33.20] 10/26/2012 12/25/2012 SUMMARY [V999.95] 12/25/2012 Acute chest pain [R07.9] 12/25/2012 Marfan syndrome [Q87.40] 12/25/2012 DM (diabetes mellitus) (HCC) [E11.9] 12/25/2012 Gastroparesis due to DM (HCC) [E11.43, K31.84] 12/25/2012 PTSD (post-traumatic stress disorder) [F43.10] 12/25/2012 DVT prophylaxis [[id number]] 12/25/2012 09/04/2013 DISPOSITION AND FOLLOW-UP [V999.01] 12/25/2012 09/04/2013 HTN (hypertension) [I10] Hypertension in , antepartum [O16.9] 09/19/2013 01/08/2014 GBS (group B Streptococcus carrier), +RV cultur*11/11/2013 04/16/2014 [Z34.90] 11/22/2013 04/16/2014 Diabetes mellitus in (HCC) [O24.919] 12/25/2013 04/16/2014 Diabetic ketoacidosis without coma associated w*01/08/2014 02/04/2023 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] 01/08/2014 DVT prophylaxis [[id number]] 02/25/2014 04/16/2014 care and examination [Z39.2] 02/25/2014 04/16/2014 Near syncope [R55] 06/17/2014 Dyspnea [R06.00] 11/04/2014 Pre-op testing [Z01.818] 11/28/2014 Atelectasis [J98.11] 12/10/2014 Fluid overload [E87.70] 12/10/2014 12/15/2014 Tachycardia, unspecified [R00.0] 12/10/2014 12/12/2014 Post-operative pain [G89.18] 12/10/2014 Anxiety [F41.9] 12/10/2014 12/13/2014 Pre-existing type 1 diabetes mellitus in pregna*08/05/2015 10/03/2018 Hereditary disease in family possibly affecting*10/07/2015 Diabetes (HCC) [E11.9] 10/30/2015 Abdominal pain complicating , antepart*11/12/2015 [Z34.90] 01/28/2016 03/06/2017 Type 1 diabetes mellitus with stable proliferat*03/17/2017 Chronic idiopathic constipation [K59.04] 11/18/2021 Menstrual irregularity [N92.6] 04/18/2022 Screening for STD (sexually transmitted disease*04/18/2022 Chronic nausea [R11.0] 04/18/2022 Type 1 diabetes mellitus with hyperglycemia, wi*08/16/2022 Insulin pump status [Z96.41] 08/16/2022 Gastro (more content not included)... Normal [facility] CNOVon 12-13-2023 CNOV Office Visit (ENDOIN ) KATHLEEN VILLA ([id number]) 1995 F CHT Date Time Provider Department 12/13/23 4:00 PM JESSICA GUERRERO During your visit today, we recorded the following information about you: Pulse Respiration Blood pressure Weight 80/minute 16/minute 139/87 77.1 kg Jessica Guerrero, COMPUTER SYSTEMS TECHNOLOGY INSTRUCTOR.TECHNICAL PROGRAMS MANAGER 12/13/2023 4:53 PM Signed [facility] DIABETES VISIT ALLERGIES Allergen Reactions Keflex [Cephalexin] Other: See Comments Yeast infection Morphine Rash, Itching Zofran [Ondansetron* Other: See Comments Syncope, incontinence Adhesive Tape (Lidia* Rash Indomethacin Rash Percocet [Oxycodone* Rash, Intolerance, Itching Adhesive Rash Current Outpatient Medications Medication Sig promethazine (PHENERGAN) 25 mg tablet Take 1 tablet by mouth every 6 hours as needed. insulin lispro (HUMALOG U-100 INSULIN) 100 unit/mL injection Use in the Insulin Pump for TDD of 100 units. Lancets (MICROLET LANCET) lancets Use as instructed to test blood sugar 4 times daily. E10.65 blood sugar diagnostic (CONTOUR NEXT TEST STRIPS) test strip Use as instructed to check blood glucose 5 times daily. E10.65 lubiprostone (AMITIZA) 8 mcg capsule Take 1 capsule by mouth twice daily with meals. prochlorperazine (COMPAZINE) 10 mg tablet Take 1 tablet by mouth every 6 hours as needed. glucose 4 gram chewable tablet Take 4 tablets by mouth as needed. insulin glargine (LANTUS SOLOSTAR, BASAGLAR KWIKPEN) 100 unit/mL (3 mL) Inject 43 Units subcutaneously as directed in the event of Insulin pump failure. Acetone, Urine, Test (KETONE URINE TEST) Use as directed SKYRIZI 150 mg/mL injection INJECT 150 MG UNDER THE SKIN EVERY 12 WEEKS No current facility-administered medications for this visit. Immunization History Administered Date(s) Administered hepatitis A (HepA) vaccine, 2-dose series, ped/adol (HAVRIX-PEDS, VAQTA-PEDS) 05/09/2012 human papillomavirus (HPV4) vaccine, quadrivalent (GARDASIL) 06/12/2012 08/11/2012 influenza (IIV3) vaccine, age 3+ yr, trivalent (AFLURIA, FLULAVAL, FLUVIRIN, FLUZONE) 05/23/2014 influenza (IIV3) vaccine, trivalent (AFLURIA, FLULAVAL, FLUVIRIN, FLUZONE) 06/14/2016 influenza (IIV3) vaccine, trivalent, PF (AFLURIA, FLUARIX, FLULAVAL, FLUVIRIN, FLUZONE) 06/05/2015 influenza (IIV4) vaccine, age 6 mo - 64 yr, quadrivalent, PF (AFLURIA, FLUARIX, FLULAVAL, FLUZONE) 11/05/2019 influenza (LAIV) vaccine, nasal, unspecified formulation 05/30/2016 meningococcal (MenACWY-D) vaccine, quadrivalent (MENACTRA) 11/03/2009 pneumococcal polysaccharide (PPV23) vaccine, 23 valent (PNEUMOVAX 23) 01/01/2013 tetanus diphtheria pertussis (Tdap) vaccine, age 7+ yr (ADACEL, BOOSTRIX) 11/03/2009 04/16/2014 Social History Tobacco Use Smoking status: Former Packs/day: 0.30 Years: 8.00 Additional pack years: 0.00 Total pack years: 2.40 Types: Cigarettes Quit date: 06/2019 Years since quittin.4 Smokeless tobacco: Never Vaping Use Vaping Use: Never used Substance Use Topics Alcohol use: Yes Comment: very rarely Drug use: Yes Types: Marijuana Comment: medical card previous, daily 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 VAMSI 11/2014 SECTION HX 02/25/2014 amairani 37 weeks PAST SURGICAL HISTORY OF Right 01/08/2020 REMOVE IMPLANTED MATERIAL POSTERIOR SEGMENT OF EYE, EXTRAOCULAR PICC LINE INSERT/CONSULT 01/09/2014 PORT Left VITRECTOMY MECHANICAL PARS PLANA 10/29/2012 PPV ([place] Vitrectomy) OD VITRECTOMY MECHANICAL PARS PLANA 05/14/2014 PPV ([place] Vitrectomy)/PCIOL OS XTRNL PT ACTIV ECG TRANSMIS W/LUBA left chest wall FAMILY HISTORY Problem Relation Age of Onset Cancer Mother 18 cervical Thyroid Mother Multiple Sclerosis Father other (mitral valve) Father Thyroid Sister Diabetes Maternal Grandmother type 2 diabetes Cataract Other maternal great grandma Glaucoma Other maternal great grandma I reviewed the Metallurgical Technician's notes with this visit for vital signs, current allergies, medications, electronic medical record, lab(s), outside lab(s), and or back office lab(s) results, history of vaccinations, and chief complaints. I edited the information obtained, as required. HISTORY OF PRESENT ILLNESS Last endo office visit: 08/[address] Joshua Wang Brynn Villa is a 28 year old female who comes for follow-up of Type 1 DM (more content not included)... Normal [facility] HEMOGLOBIN A1C (POC)on 12-12 HbA1c (Bld) [Mass fraction] 7.1 % Abnormal 4.3 - 5.6 % [facility] Absolute lymphocyte countOrd ered By: Lin Johansen on 10-25-2023 Lymphocytes Auto (Unsp spec) [#/Vol] 2.23 10*3/uL 0.83-4.51 [facility] Automated lymphocyte count a s percentage of total leukocytesOrdered By: Lin Johansen on 10-25-2023 Lymphocytes/100 WBC Auto (Unsp spec) 17.4 % 19-41 [facility] Basophil percentageOrdered B y: Lin Johansen on 10-25-2023 Basophils/100 WBC (Bld) 0.8 % 0-1 [facility] Chloride [Moles/Vol] 106 mmol/L 98-107 [facility] Eosinophils/100 WBC (Bld) 0.7 % 0-5 [facility] Glucose [Mass/Vol] 255 mg/dL 74-106 [facility] Comment on above: Glucose result great er than or equal to 200 mg/dLsuggests DIABETES MELLITUS per A.D.A. criteria. Hemoglobin (Bld) [Mass/Vol] 14.3 g/dL 12.0-15.0 [facility] Monocytes/100 WBC (Bld) 3.7 % 0-10 [facility] Neutrophils (Bld) [#/Vol] 9.8 10*3/uL 2.0-7.7 [facility] Neutrophils/100 WBC (Bld) 76.5 % 47-70 [facility] Potassium [Moles/Vol] 4.3 mmol/L 3.5-5.1 [facility] Sodium [Moles/Vol] 137 mmol/L 136-145 [facility] WBC (Bld) [#/Vol] 12.8 10*3/uL 4.4-11.0 [facility] Determination of erythrocyte mean corpuscular volume (MCV)Ordered By: Lin Johansen on 10-25-2023 MCV (RBC) [Entitic vol] 89.6 fL 81-99 [facility] Erythrocyte distribution wid th ratioOrdered By: Lin Johansen on 10-25-2023 Erythrocyte distribution width (RBC) [Ratio] 13.9 % 11.6-14.6 [facility] Erythrocyte distribution wid th standard deviationOrdered By: Lin Johansen on 10-25-2023 Erythrocyte distribution width (RBC) [Entitic vol] 46.0 fL 35.1-43.9 [facility] Hematocrit Auto (Bld) [Volum e fraction]Ordered By: Lin Johansen on 10-25-2023 Hematocrit (Bld) [Volume fraction] 44.7 % 37-47 [facility] Immature granulocytes/100 WB C Auto (Bld)Ordered By: Lin Johansen on 10-25-2023 Immature granulocytes/100 WBC (Bld) 0.900 % 0.0-0.9 [facility] Comment on above: IG% - Immature Granu locytes (promyelocytes, myelocytes and metamyelocytes) > 1% indicates that a LEFT SHIFT is Present. Laboratory - Chemistry and C hemistry - challengeOrdered By: Lin Johansen on 10-25-2023 CO2 [Moles/Vol] 23.0 mmol/L 21.0-32.0 [facility] Urea nitrogen/Creatinine [Mass ratio] 21.5 mg/mg 10-20 [facility] Laboratory - Drug toxicology Ordered By: Lin Johansen on 10-25-2023 Amphetamines Ql (U) Negative <1000 ng/mL [facility] Benzodiazepines Ql (U) Negative < 200 ng/mL [facility] Cannabinoids Screen Ql (U) Positive < 50 ng/mL [facility] Cocaine Ql (U) Negative < 300 ng/mL [facility] Opiates Ql (U) Negative < 300 ng/mL [facility] Laboratory - Hematology and Cell countsOrdered By: Lin Johansen on 10-25-2023 MCH (RBC) [Entitic mass] 28.7 pg 27.0-32.0 [facility] MCHC (RBC) [Mass/Vol] 32.0 g/dL 32-36 [facility] Nucleated RBC/100 WBC (Bld) [Ratio] 0 % 0-5 [facility] Platelet mean volume (Bld) [Entitic vol] 11.9 fL 6.2-12.0 [facility] Platelets (Bld) [#/Vol] 171 10*3/uL 150-450 [facility] No Panel InformationOrdered By: Lin Johansen on 10-25-2023 Estimated Creatinine Clearance Calc 109.81 ml/min [facility] Estimated GFR (MDRD) Amer 110 mL/min >60 [facility] Comment on above: GFR Calc Estimated GFR (MDRD) Non-Af Amer 91 mL/min >60 [facility] Comment on above: Non- GFR Calc Ethyl Alcohol Level < 3.0 mg/dL [facility] Comment on above: The serum:whole bloo d ethanol ratio is approximately 1.14and varies slightly with hematocrit. Medical Alcohol reference interval and critical value innon-tolerant individuals; 50 - 100 Impairment 100 Intoxication 100 - 250 Severe Poisoning 250 - 400 Deep/possible fatal coma MDMA (Ecstasy) Screen Negative < 500 ng/mL [facility] Urine Barbiturates Screen Negative < 200 ng/mL [facility] Urine Drug Screen Comment [facility] Comment on above: CONFIRMATORY TESTING FOR ALL POSITIVE URINE DRUG SCREENRESULTS WILL ONLY BE SENT OUT UPON PHYSICIAN ORDER. VISTA Urine Drug Screen methods provide only preliminaryanalytical test results. A more specific alternate chemicalmethod must be used in order to obtain a confirmedanalytical result. Gas chromatography/mass spectrometery(GC/MS) is the preferred confirmatory method. Clinicalconsideration and professional judgement should be appliedto any drug of abuse test result, particularly whenpreliminary positive results are used. URINE TCA TESTING MUST BE ORDERED SEPARATELY. USE TESTMNEMONIC: [facility] Urine Methadone Screen Negative < 300 ng/mL [facility] RBC Auto (Bld) [#/Vol]Ordere d By: Lin Johansen on 10-25-2023 RBC (Bld) [#/Vol] 4.99 10*6/uL 4.2-5.4 [facility] Serum or plasma calcium milli urement (mass/volume)Ordered By: Lin Johansen on 10-25-2023 Calcium [Mass/Vol] 9.0 mg/dL 8.5-10.1 [facility] Serum or plasma choriogonado tropin detectionOrdered By: Lin Johansen on 10-25-2023 HCG ( test) Ql Negative [facility] Serum or plasma creatinine m easurement (mass/volume)Ordered By: Lin Johansen on 10-25-2023 Creatinine [Mass/Vol] 0.79 mg/dL 0.55-1.02 [facility] Comment on above: The validity of the calculated GFR & GFRAA in patients over 70 years has not been determined. Clinical correlation is essential. Serum or plasma urea nitroge n measurement (mass/volume)Ordered By: Lin Johansen on 10-25-2023 Urea nitrogen [Mass/Vol] 17 mg/dL 7-18 [facility] Thin prep Papanicolaou smear with manual screeningOrdered By: Lin Johansen on 10-25-2023 Thin prep Papanicolaou smear with manual screening 60 mg/dL 74-106 [facility] Comment on above: MANAGEMENT OF PATIEN T CARE PER NURSING PROTOCOL Thin prep Papanicolaou smear with manual screening 8 5-15 [facility] Urine phencyclidine (PCP) de tectionOrdered By: Lin Johansen on 10-25-2023 Phencyclidine Ql (U) Negative < 25 ng/mL [facility] Absolute lymphocyte countOrd ered By: Vita Jefferson on 10-18-2023 Lymphocytes Auto (Unsp spec) [#/Vol] 2.87 10*3/uL 0.83-4.51 [facility] Automated lymphocyte count a s percentage of total leukocytesOrdered By: Vita Jefferson on 10-18-2023 Lymphocytes/100 WBC Auto (Unsp spec) 32.5 % 19-41 [facility] Basophil percentageOrdered B y: Vita Jefferson on 10-18-2023 Basophils/100 WBC (Bld) 0.3 % 0-1 [facility] Chloride [Moles/Vol] 110 mmol/L 98-107 [facility] Eosinophils/100 WBC (Bld) 1.0 % 0-5 [facility] Glucose [Mass/Vol] 227 mg/dL 74-106 [facility] Comment on above: Glucose result great er than or equal to 200 mg/dLsuggests DIABETES MELLITUS per A.D.A. criteria. Hemoglobin (Bld) [Mass/Vol] 12.0 g/dL 12.0-15.0 [facility] Monocytes/100 WBC (Bld) 6.0 % 0-10 [facility] Neutrophils (Bld) [#/Vol] 5.3 10*3/uL 2.0-7.7 [facility] Neutrophils/100 WBC (Bld) 59.5 % 47-70 [facility] Potassium [Moles/Vol] 4.1 mmol/L 3.5-5.1 [facility] Sodium [Moles/Vol] 138 mmol/L 136-145 [facility] WBC (Bld) [#/Vol] 8.8 10*3/uL 4.4-11.0 [facility] Determination of erythrocyte mean corpuscular volume (MCV)Ordered By: Vita Jefferson on 10-18-2023 MCV (RBC) [Entitic vol] 89.4 fL 81-99 [facility] Erythrocyte distribution wid th ratioOrdered By: Vita Jefferson on 10-18-2023 Erythrocyte distribution width (RBC) [Ratio] 13.2 % 11.6-14.6 [facility] Erythrocyte distribution wid th standard deviationOrdered By: Vita Jefferson on 10-18-2023 Erythrocyte distribution width (RBC) [Entitic vol] 43.0 fL 35.1-43.9 [facility] Hematocrit Auto (Bld) [Volum e fraction]Ordered By: Vitaselene Jefferson on 10-18-2023 Hematocrit (Bld) [Volume fraction] 36.4 % 37-47 [facility] Immature granulocytes/100 WB C Auto (Bld)Ordered By: Vitaselene Jefferson on 10-18-2023 Immature granulocytes/100 WBC (Bld) 0.700 % 0.0-0.9 [facility] Comment on above: IG% - Immature Granu locytes (promyelocytes, myelocytes and metamyelocytes) > 1% indicates that a LEFT SHIFT is Present. Laboratory - Chemistry and C hemistry - challengeOrdered By: Vita Jefferson on 10-18-2023 CO2 [Moles/Vol] 25.0 mmol/L 21.0-32.0 [facility] Urea nitrogen/Creatinine [Mass ratio] 24.0 mg/mg 10-20 [facility] Laboratory - Hematology and Cell countsOrdered By: Vita Jefferson on 10-18-2023 MCH (RBC) [Entitic mass] 29.5 pg 27.0-32.0 [facility] MCHC (RBC) [Mass/Vol] 33.0 g/dL 32-36 [facility] Nucleated RBC/100 WBC (Bld) [Ratio] 0 % 0-5 [facility] Platelet mean volume (Bld) [Entitic vol] 12.1 fL 6.2-12.0 [facility] Platelets (Bld) [#/Vol] 111 10*3/uL 150-450 [facility] No Panel InformationOrdered By: Vita Jefferson on 10-18-2023 Estimated Creatinine Clearance Calc 129.48 ml/min [facility] Estimated GFR (MDRD) Amer 135 mL/min >60 [facility] Comment on above: GFR Calc Estimated GFR (MDRD) Non-Af Amer 111 mL/min >60 [facility] Comment on above: Non- GFR Calc RBC Auto (Bld) [#/Vol]Ordere d By: Vita Jefferson on 10-18-2023 RBC (Bld) [#/Vol] 4.07 10*6/uL 4.2-5.4 [facility] Serum or plasma calcium milli urement (mass/volume)Ordered By: Vita Jefferson on 10-18-2023 Calcium [Mass/Vol] 7.6 mg/dL 8.5-10.1 [facility] Serum or plasma creatinine m easurement (mass/volume)Ordered By: Vita Jefferson on 10-18-2023 Creatinine [Mass/Vol] 0.67 mg/dL 0.55-1.02 [facility] Comment on above: The validity of the calculated GFR & GFRAA in patients over 70 years has not been determined. Clinical correlation is essential. Serum or plasma urea nitroge n measurement (mass/volume)Ordered By: Vita Jefferson on 10-18-2023 Urea nitrogen [Mass/Vol] 16 mg/dL 7-18 [facility] Thin prep Papanicolaou smear with manual screeningOrdered By: Vita Jefferson on 10-18-2023 Thin prep Papanicolaou smear with manual screening 3 5-15 [facility] Absolute lymphocyte countOrd ered By: Alexandro Garces on 10-17-2023 Lymphocytes Auto (Unsp spec) [#/Vol] 1.06 10*3/uL 0.83-4.51 [facility] Automated lymphocyte count a s percentage of total leukocytesOrdered By: Alexandro Garces on 10-17-2023 Lymphocytes/100 WBC Auto (Unsp spec) 7.8 % 19-41 [facility] Basophil percentageOrdered B y: Alexandro Garces on 10-17-2023 Basophils/100 WBC (Bld) 0.4 % 0-1 [facility] Chloride [Moles/Vol] 98 mmol/L 98-107 [facility] Eosinophils/100 WBC (Bld) 0.1 % 0-5 [facility] Glucose [Mass/Vol] 534 mg/dL 74-106 [facility] Comment on above: Critical Result(s) C alled at: 10:55:26 10/17/2023 by: Nan Bray. Results read back by same.Glucose result greater than or equal to 200 mg/dLsuggests DIABETES MELLITUS per A.D.A. criteria. Hemoglobin (Bld) [Mass/Vol] 13.6 g/dL 12.0-15.0 [facility] Monocytes/100 WBC (Bld) 2.4 % 0-10 [facility] Neutrophils (Bld) [#/Vol] 12.0 10*3/uL 2.0-7.7 [facility] Neutrophils/100 WBC (Bld) 88.4 % 47-70 [facility] Potassium [Moles/Vol] 4.8 mmol/L 3.5-5.1 [facility] Sodium [Moles/Vol] 132 mmol/L 136-145 [facility] WBC (Bld) [#/Vol] 13.6 10*3/uL 4.4-11.0 [facility] Determination of erythrocyte mean corpuscular volume (MCV)Ordered By: Alexandro Garces on 10-17-2023 MCV (RBC) [Entitic vol] 90.2 fL 81-99 [facility] Erythrocyte distribution wid th ratioOrdered By: Alexandro Garces on 10-17-2023 Erythrocyte distribution width (RBC) [Ratio] 13.1 % 11.6-14.6 [facility] Erythrocyte distribution wid th standard deviationOrdered By: Alexandro Garces on 10-17-2023 Erythrocyte distribution width (RBC) [Entitic vol] 43.1 fL 35.1-43.9 [facility] Hematocrit Auto (Bld) [Volum e fraction]Ordered By: Alexandro Garces on 10-17-2023 Hematocrit (Bld) [Volume fraction] 42.5 % 37-47 [facility] Immature granulocytes/100 WB C Auto (Bld)Ordered By: Alexandro Garces on 10-17-2023 Immature granulocytes/100 WBC (Bld) 0.900 % 0.0-0.9 [facility] Comment on above: IG% - Immature Granu locytes (promyelocytes, myelocytes and metamyelocytes) > 1% indicates that a LEFT SHIFT is Present. Laboratory - Chemistry and C hemistry - challengeOrdered By: Alexandro Garces on 10-17-2023 CO2 [Moles/Vol] 16.0 mmol/L 21.0-32.0 [facility] Urea nitrogen/Creatinine [Mass ratio] 18.6 mg/mg 10-20 [facility] Laboratory - Hematology and Cell countsOrdered By: Alexandro Garces on 10-17-2023 MCH (RBC) [Entitic mass] 28.9 pg 27.0-32.0 [facility] MCHC (RBC) [Mass/Vol] 32.0 g/dL 32-36 [facility] Nucleated RBC/100 WBC (Bld) [Ratio] 0 % 0-5 [facility] Platelet mean volume (Bld) [Entitic vol] 12.2 fL 6.2-12.0 [facility] Platelets (Bld) [#/Vol] 138 10*3/uL 150-450 [facility] No Panel InformationOrdered By: Alexandro Garces on 10-17-2023 Estimated Creatinine Clearance Calc 73.52 ml/min [facility] Estimated GFR (MDRD) Amer 70 mL/min >60 [facility] Comment on above: GFR Calc Estimated GFR (MDRD) Non-Af Amer 58 mL/min >60 [facility] Comment on above: Non- GFR Calc RBC Auto (Bld) [#/Vol]Ordere d By: Alexandro Garces on 10-17-2023 RBC (Bld) [#/Vol] 4.71 10*6/uL 4.2-5.4 [facility] Serum or plasma acetone milli urement (mass/volume)Ordered By: Alexandro Garces on 10-17-2023 Acetone [Mass/Vol] MODERATE NEG [facility] Serum or plasma calcium milli urement (mass/volume)Ordered By: Alexandro Garces on 10-17-2023 Calcium [Mass/Vol] 9.1 mg/dL 8.5-10.1 [facility] Serum or plasma creatinine m easurement (mass/volume)Ordered By: Alexandro Garces on 10-17-2023 Creatinine [Mass/Vol] 1.18 mg/dL 0.55-1.02 [facility] Comment on above: The validity of the calculated GFR & GFRAA in patients over 70 years has not been determined. Clinical correlation is essential. Serum or plasma urea nitroge n measurement (mass/volume)Ordered By: Alexandro Garces on 10-17-2023 Urea nitrogen [Mass/Vol] 22 mg/dL 7-18 [facility] Thin prep Papanicolaou smear with manual screeningOrdered By: Vita Jefferson on 10-17-2023 Thin prep Papanicolaou smear with manual screening 293 mg/dL 74-106 [facility] Comment on above: MANAGEMENT OF PATIEN T CARE PER NURSING PROTOCOL Thin prep Papanicolaou smear with manual screeningOrdered By: Alexandro Garces on 10-17-2023 Thin prep Papanicolaou smear with manual screening 18 5-15 [facility] Absolute lymphocyte countOrd ered By: Olvin Ibarra on 09-25-2023 Lymphocytes Auto (Unsp spec) [#/Vol] 0.95 10*3/uL 0.83-4.51 [facility] Automated lymphocyte count a s percentage of total leukocytesOrdered By: Olvin Ibarra on 09-25-2023 Lymphocytes/100 WBC Auto (Unsp spec) 15.8 % 19-41 [facility] Basophil percentageOrdered B y: Olvin Ibarra on 09-25-2023 Basophils/100 WBC (Bld) 0.3 % 0-1 [facility] Chloride [Moles/Vol] 106 mmol/L 98-107 [facility] Eosinophils/100 WBC (Bld) 0.2 % 0-5 [facility] Glucose [Mass/Vol] 331 mg/dL 74-106 [facility] Comment on above: Glucose result great er than or equal to 200 mg/dLsuggests DIABETES MELLITUS per A.D.A. criteria. Hemoglobin (Bld) [Mass/Vol] 13.2 g/dL 12.0-15.0 [facility] Monocytes/100 WBC (Bld) 12.0 % 0-10 [facility] Neutrophils (Bld) [#/Vol] 4.2 10*3/uL 2.0-7.7 [facility] Neutrophils/100 WBC (Bld) 70.4 % 47-70 [facility] Potassium [Moles/Vol] 3.7 mmol/L 3.5-5.1 [facility] Sodium [Moles/Vol] 135 mmol/L 136-145 [facility] WBC (Bld) [#/Vol] 6.0 10*3/uL 4.4-11.0 [facility] Blood platelet adequacy dete ction by light microscopyOrdered By: Olvin Ibarra on 09-25-2023 Platelets LM Ql (Bld) MOD DEC ADEQ [facility] Determination of erythrocyte mean corpuscular volume (MCV)Ordered By: Olvin Ibarra on 09-25-2023 MCV (RBC) [Entitic vol] 90.2 fL 81-99 [facility] Erythrocyte distribution wid th ratioOrdered By: Olvin Ibarra on 09-25-2023 Erythrocyte distribution width (RBC) [Ratio] 13.8 % 11.6-14.6 [facility] Erythrocyte distribution wid th standard deviationOrdered By: Olvin Ibarra on 09-25-2023 Erythrocyte distribution width (RBC) [Entitic vol] 45.7 fL 35.1-43.9 [facility] Hematocrit Auto (Bld) [Volum e fraction]Ordered By: Olvin Ibarra on 09-25-2023 Hematocrit (Bld) [Volume fraction] 41.6 % 37-47 [facility] Immature granulocytes/100 WB C Auto (Bld)Ordered By: Olvin Ibarra on 09-25-2023 Immature granulocytes/100 WBC (Bld) 1.300 % 0.0-0.9 [facility] Comment on above: IG% - Immature Granu locytes (promyelocytes, myelocytes and metamyelocytes) > 1% indicates that a LEFT SHIFT is Present. Laboratory - Chemistry and C hemistry - challengeOrdered By: Olvin Ibarra on 09-25-2023 CO2 [Moles/Vol] 18.0 mmol/L 21.0-32.0 [facility] Urea nitrogen/Creatinine [Mass ratio] 15.6 mg/mg 10-20 [facility] Laboratory - Hematology and Cell countsOrdered By: Olvin Ibarra on 09-25-2023 MCH (RBC) [Entitic mass] 28.6 pg 27.0-32.0 [facility] MCHC (RBC) [Mass/Vol] 31.7 g/dL 32-36 [facility] Nucleated RBC/100 WBC (Bld) [Ratio] 0 % 0-5 [facility] Platelets (Bld) [#/Vol] 76 10*3/uL 150-450 [facility] No Panel InformationOrdered By: Olvin Ibarra on 09-25-2023 Estimated Creatinine Clearance Calc 96.39 ml/min [facility] Estimated GFR (MDRD) Amer 96 mL/min >60 [facility] Comment on above: GFR Calc Estimated GFR (MDRD) Non-Af Amer 79 mL/min >60 [facility] Comment on above: Non- GFR Calc Platelet mean volume Dong-Ec ker (Bld) [Entitic vol]Ordered By: Olvin Ibarra on 09-25-2023 Platelet mean volume (Bld) [Entitic vol] 12.8 fL 6.2-12.0 [facility] RBC Auto (Bld) [#/Vol]Ordere d By: Olvin Ibarra on 09-25-2023 RBC (Bld) [#/Vol] 4.61 10*6/uL 4.2-5.4 [facility] Serum or plasma calcium milli urement (mass/volume)Ordered By: Olvin Ibarra on 09-25-2023 Calcium [Mass/Vol] 8.4 mg/dL 8.5-10.1 [facility] Serum or plasma creatinine m easurement (mass/volume)Ordered By: Olvin Ibarra on 09-25-2023 Creatinine [Mass/Vol] 0.90 mg/dL 0.55-1.02 [facility] Comment on above: The validity of the calculated GFR & GFRAA in patients over 70 years has not been determined. Clinical correlation is essential. Serum or plasma urea nitroge n measurement (mass/volume)Ordered By: Olvin Ibarra on 09-25-2023 Urea nitrogen [Mass/Vol] 14 mg/dL 7-18 [facility] Thin prep Papanicolaou smear with manual screeningOrdered By: Olvin Ibarra on 09-25-2023 Thin prep Papanicolaou smear with manual screening 11 5-15 [facility] Laboratory - Microbiology an d Antimicrobial susceptibilityOrdered By: Siddharth Michelle on 09-24-2023 SARS-CoV-2 (COVID-19) RNA DANIEL+probe Ql (Unsp spec) Influenzae B [facility] Absolute lymphocyte countOrd ered By: Rm Chirinos on 09-20-2023 Lymphocytes Auto (Unsp spec) [#/Vol] 0.75 10*3/uL 0.83-4.51 [facility] Automated lymphocyte count a s percentage of total leukocytesOrdered By: Rm Chirinos on 09-20-2023 Lymphocytes/100 WBC Auto (Unsp spec) 4.6 % 19-41 [facility] Base excessOrdered By: Rm Mayur allo on 09-20-2023 Base excess Calc (BldV) [Moles/Vol] -5 mmol/L -1.0-3.5 [facility] Basophil percentageOrdered B y: Rm Chirinos on 09-20-2023 Basophil percentage 0 SEEN /hpf 0-5 [facility] Basophils/100 WBC (Bld) 0.4 % 0-1 [facility] Chloride [Moles/Vol] 102 mmol/L 98-107 [facility] Eosinophils/100 WBC (Bld) 0.0 % 0-5 [facility] Glucose [Mass/Vol] 534 mg/dL 74-106 [facility] Comment on above: Critical Result(s) C alled at: 12:17:31 09/20/2023 by: Reid Rogers. Colin Lo RN (ER). Results read back by same.Glucose result greater than or equal to 200 mg/dLsuggests DIABETES MELLITUS per A.D.A. criteria. Hemoglobin (Bld) [Mass/Vol] 13.4 g/dL 12.0-15.0 [facility] Monocytes/100 WBC (Bld) 2.8 % 0-10 [facility] Neutrophils (Bld) [#/Vol] 14.7 10*3/uL 2.0-7.7 [facility] Neutrophils/100 WBC (Bld) 91.2 % 47-70 [facility] Potassium [Moles/Vol] 4.9 mmol/L 3.5-5.1 [facility] Sodium [Moles/Vol] 132 mmol/L 136-145 [facility] WBC (Bld) [#/Vol] 16.2 10*3/uL 4.4-11.0 [facility] Bilirubin Test strip Ql (U)O rdered By: Rm Chirinos on 09-20-2023 Bilirubin Ql (U) Negative Negative [facility] CO2 (BldV) [Moles/Vol]Ordere d By: Rm Chirinos on 09-20-2023 CO2 [Moles/Vol] 22 mmol/L 23-33 [facility] Determination of erythrocyte mean corpuscular volume (MCV)Ordered By: Rm Chirinos on 09-20-2023 MCV (RBC) [Entitic vol] 90.3 fL 81-99 [facility] Erythrocyte distribution wid th ratioOrdered By: Rmej Chirinos on 09-20-2023 Erythrocyte distribution width (RBC) [Ratio] 13.5 % 11.6-14.6 [facility] Erythrocyte distribution wid th standard deviationOrdered By: Rmej Chirinos on 09-20-2023 Erythrocyte distribution width (RBC) [Entitic vol] 44.9 fL 35.1-43.9 [facility] Hematocrit Auto (Bld) [Volum e fraction]Ordered By: Rmej Chirinos on 09-20-2023 Hematocrit (Bld) [Volume fraction] 41.8 % 37-47 [facility] Immature granulocytes/100 WB C Auto (Bld)Ordered By: Rmej Chirinos on 09-20-2023 Immature granulocytes/100 WBC (Bld) 1.000 % 0.0-0.9 [facility] Comment on above: IG% - Immature Granu locytes (promyelocytes, myelocytes and metamyelocytes) > 1% indicates that a LEFT SHIFT is Present. Ketones Test strip Ql (U)Ord ered By: Rm Chirinos on 09-20-2023 Ketones Ql (U) 150 mg/dl Negative [facility] Comment on above: CRITICAL VALUE *HCRI TICAL VALUE VERIFIED. CALLED TO WILFREDO SALEEM (ER)09/20/23 1215 [employer].RESULTS READ BACK BY SAME. Laboratory - Chemistry and C hemistry - challengeOrdered By: Rm Chirinos on 09-20-2023 CO2 [Moles/Vol] 21.0 mmol/L 21.0-32.0 [facility] Urea nitrogen/Creatinine [Mass ratio] 19.1 mg/mg 10-20 [facility] Laboratory - Hematology and Cell countsOrdered By: Rm Chirinos on 09-20-2023 MCH (RBC) [Entitic mass] 28.9 pg 27.0-32.0 [facility] MCHC (RBC) [Mass/Vol] 32.1 g/dL 32-36 [facility] Nucleated RBC/100 WBC (Bld) [Ratio] 0 % 0-5 [facility] Platelets (Bld) [#/Vol] 111 10*3/uL 150-450 [facility] Mucus LM Ql (Urine sed)Order ed By: Rm Chirinos on 09-20-2023 Mucus Ql (Urine sed) 0 SEEN /hpf [facility] Nitrite Test strip Ql (U)Ord ered By: Rm Chirinos on 09-20-2023 Nitrite Ql (U) Negative Negative [facility] No Panel InformationOrdered By: Rm Chirinos on 09-20-2023 Blood Gas Sample Site Not entered [facility] Blood Gas Specimen Type ISABELLE [facility] Oxygen Delivery Device Room Air [facility] Urine RBC 0 SEEN /hpf 0-5 [facility] Estimated Creatinine Clearance Calc 93.93 ml/min [facility] Estimated GFR (MDRD) Amer 85 mL/min >60 [facility] Comment on above: GFR Calc Estimated GFR (MDRD) Non-Af Amer 70 mL/min >60 [facility] Comment on above: Non- GFR Calc PCO2 venousOrdered By: Rm siddiqi on 09-20-2023 CO2 (BldV) [Partial pressure] 37.3 mm[Hg] 41-51 [facility] PO2 venousOrdered By: Rm sahni on 09-20-2023 Oxygen (BldV) [Partial pressure] 64 mm[Hg] 25-40 [facility] Platelet mean volume Dong-Ec ker (Bld) [Entitic vol]Ordered By: Rm Chirinos on 09-20-2023 Platelet mean volume (Bld) [Entitic vol] 13.3 fL 6.2-12.0 [facility] Protein Test strip Ql (U)Ord ered By: Rm Chirinos on 09-20-2023 Protein Ql (U) 15 mg/dl Negative [facility] RBC Auto (Bld) [#/Vol]Ordere d By: Rm Chirinos on 09-20-2023 RBC (Bld) [#/Vol] 4.63 10*6/uL 4.2-5.4 [facility] Serum or plasma calcium milli urement (mass/volume)Ordered By: Rm Chirinos on 09-20-2023 Calcium [Mass/Vol] 8.8 mg/dL 8.5-10.1 [facility] Serum or plasma creatinine m easurement (mass/volume)Ordered By: Rm Chirinos on 09-20-2023 Creatinine [Mass/Vol] 1.00 mg/dL 0.55-1.02 [facility] Comment on above: The validity of the calculated GFR & GFRAA in patients over 70 years has not been determined. Clinical correlation is essential. Serum or plasma urea nitroge n measurement (mass/volume)Ordered By: Rm Chirinos on 09-20-2023 Urea nitrogen [Mass/Vol] 19 mg/dL 7-18 [facility] Squamous epithelial cells de tection in urine sediment by light microscopyOrdered By: Rm Chirinos on 09-20-2023 Epithelial cells.squamous LM Ql (Urine sed) 0-5 SEEN /hpf 5-10 [facility] Thin prep Papanicolaou smear with manual screeningOrdered By: Rm Chirinos on 09-20-2023 Thin prep Papanicolaou smear with manual screening 264 mg/dL 74-106 [facility] Comment on above: MANAGEMENT OF PATIEN T CARE PER NURSING PROTOCOL Thin prep Papanicolaou smear with manual screening 9 5-15 [facility] Urine blood detectionOrdered By: Rm Chirinos on 09-20-2023 RBC Ql (U) Negative Negative [facility] Urine clarityOrdered By: Rm Chirinos on 09-20-2023 Clarity (U) Sl. Cloudy Clear [facility] Urine color determinationOrd ered By: Rm Chirinos on 09-20-2023 Color (U) Yellow Yellow [facility] Urine glucose detectionOrder ed By: Rm Chirinos on 09-20-2023 Glucose Ql (U) 1000 mg/dl Normal [facility] Urine leukocyte esterase det ection by dipstickOrdered By: Rm Chirinos on 09-20-2023 Leukocyte esterase Test strip Ql (U) Negative Negative [facility] Urine pHOrdered By: Rm pagan on 09-20-2023 pH (U) 6.0 [pH] 5.0 - 8.0 [facility] Urine sediment bacteria coun t by microscopy (number/high power field)Ordered By: Rm Chirinos on 09-20-2023 Bacteria LM.HPF (Urine sed) [#/Area] 0 /[HPF] None Seen [facility] Urine specific gravity measu rementOrdered By: Rm Chirinos on 09-20-2023 Specific gravity (U) [Rel density] 1.010 1.002-1.030 [facility] Urine urobilinogen measureme ntOrdered By: Rm Chirinos on 09-20-2023 Urobilinogen Ql (U) Normal mg/dl Normal [facility] Venous blood bicarbonate penelope surementOrdered By: Rm Chirinos on 09-20-2023 HCO3 (BldCoV) [Moles/Vol] 21 mmol/L 22- [facility] Venous blood oxygen saturati on (pure mass fraction)Ordered By: Rm Chirinos on 09-20-2023 SaO2% (BldV) [Pure mass fraction] 91 % 50-70 [facility] Venous blood pH measurementO rdered By: Rm Chirinos on 09-20-2023 pH (BldV) 7.35 [pH] 7.32-7.42 [facility] Absolute lymphocyte countOrd ered By: Greg Philip on 09-06-2023 Lymphocytes Auto (Unsp spec) [#/Vol] 2.47 10*3/uL 0.83-4.51 [facility] Basophil percentageOrdered B y: Greg Philip on 09-06-2023 Basophil percentage 0-5 SEEN /hpf 0-5 [facility] Basophils/100 WBC (Bld) 0.4 % 0-1 [facility] Bilirubin [Mass/Vol] 0.50 mg/dL 0.20-1.00 [facility] Comment on above: For patients on eltr ombopag therapy, use of Dimension [employer] TBIL is not recommended. Chloride [Moles/Vol] 111 mmol/L 98-107 [facility] Eosinophils/100 WBC (Bld) 0.7 % 0-5 [facility] Glucose [Mass/Vol] 101 mg/dL 74-106 [facility] Comment on above: Fasting Glucose resu lt from 100 to 125 mg/dL suggests IMPAIRED HOMEOSTASIS per A.D.A. criteria. Neutrophils (Bld) [#/Vol] 6.5 10*3/uL 2.0-7.7 [facility] Neutrophils/100 WBC (Bld) 67.1 % 47-70 [facility] Potassium [Moles/Vol] 3.9 mmol/L 3.5-5.1 [facility] Protein [Mass/Vol] 6.8 g/dL 6.4-8.2 [facility] Sodium [Moles/Vol] 142 mmol/L 136-145 [facility] WBC (Bld) [#/Vol] 9.6 10*3/uL 4.4-11.0 [facility] Beta hCG serum qualOrdered B y: Greg Philip on 09-06-2023 Beta HCG ( test) Ql Negative [facility] Bilirubin Test strip Ql (U)O rdered By: Greg Philip on 09-06-2023 Bilirubin Ql (U) Negative Negative [facility] Blood erythrocytes count (nu mber/volume)Ordered By: Greg Philip on 09-06-2023 RBC (Bld) [#/Vol] 4.34 10*6/uL 4.2-5.4 [facility] Blood hemoglobin measurement (mass/volume)Ordered By: Greg Philip on 09-06-2023 Hemoglobin (Bld) [Mass/Vol] 12.7 g/dL 12.0-15.0 [facility] Blood lymphocytes/100 leukoc ytesOrdered By: Greg Philip on 09-06-2023 Lymphocytes/100 WBC (Bld) 25.6 % 19-41 [facility] Blood monocytes/100 leukocyt esOrdered By: Greg Philip on 09-06-2023 Monocytes/100 WBC (Bld) 5.7 % 0-10 [facility] Blood platelet mean volumeOr dered By: Greg Philip on 09-06-2023 Platelet mean volume (Bld) [Entitic vol] 12.4 fL 6.2-12.0 [facility] Determination of erythrocyte mean corpuscular volume (MCV)Ordered By: Greg Philip on 09-06-2023 MCV (RBC) [Entitic vol] 91.0 fL 81-99 [facility] Hematocrit Auto (Bld) [Volum e fraction]Ordered By: Greg Philip on 09-06-2023 Hematocrit (Bld) [Volume fraction] 39.5 % 37-47 [facility] Ketones Test strip Ql (U)Ord ered By: Greg Philip on 09-06-2023 Ketones Ql (U) 5 mg/dl Negative [facility] Laboratory - Chemistry and C hemistry - challengeOrdered By: Greg Philip on 09-06-2023 ALP [Catalytic activity/Vol] 69 U/L 45-117 [facility] ALT [Catalytic activity/Vol] 47 U/L 13-56 [facility] CO2 [Moles/Vol] 27.0 mmol/L 21.0-32.0 [facility] Globulin (S) [Mass/Vol] 3.2 g/dL 2.2-4.2 [facility] Urea nitrogen/Creatinine [Mass ratio] 22.9 mg/mg 10-20 [facility] - Hematology and Cell countsOrdered By: Greg Philip on 09-06-2023 Erythrocyte distribution width (RBC) [Entitic vol] 45.5 fL 35.1-43.9 [facility] Erythrocyte distribution width (RBC) [Ratio] 13.6 % 11.6-14.6 [facility] Immature granulocytes/100 WBC (Bld) 0.500 % 0.0-0.9 [facility] Comment on above: IG% - Immature Granu locytes (promyelocytes, myelocytes and metamyelocytes) > 1% indicates that a LEFT SHIFT is Present. MCH (RBC) [Entitic mass] 29.3 pg 27.0-32.0 [facility] Nucleated RBC/100 WBC (Bld) [Ratio] 0 % 0-5 [facility] MCHC Auto (RBC) [Mass/Vol]Or dered By: Greg Philip on 09-06-2023 MCHC (RBC) [Mass/Vol] 32.2 g/dL 32-36 [facility] Mucus LM Ql (Urine sed)Order ed By: Greg Philip on 09-06-2023 Mucus Ql (Urine sed) 1+ /hpf [facility] Nitrite Test strip Ql (U)Ord ered By: Greg Philip on 09-06-2023 Nitrite Ql (U) Negative Negative [facility] No Panel InformationOrdered By: Greg Philip on 09-06-2023 Estimated Creatinine Clearance Calc 131.44 ml/min [facility] Estimated GFR (MDRD) Amer 137 mL/min >60 [facility] Comment on above: GFR Calc Estimated GFR (MDRD) Non-Af Amer 113 mL/min >60 [facility] Comment on above: Non- GFR Calc Platelets bldOrdered By: Allyn Philip on 09-06-2023 Platelets (Bld) [#/Vol] 144 10*3/uL 150-450 [facility] Protein Test strip Ql (U)Ord ered By: Grge Philip on 09-06-2023 Protein Ql (U) 15 mg/dl Negative [facility] Serum or plasma albumin milli urement (mass/volume)Ordered By: Greg Philip on 09-06-2023 Albumin [Mass/Vol] 3.6 g/dL 3.2-5.0 [facility] Serum or plasma albumin/glob ulin mass ratioOrdered By: Greg Philip on 09-06-2023 Albumin/Globulin [Mass ratio] 1.1 {ratio} 0.9-2.4 [facility] Serum or plasma calcium milli urement (mass/volume)Ordered By: Greg Philip on 09-06-2023 Calcium [Mass/Vol] 8.5 mg/dL 8.5-10.1 [facility] Serum or plasma creatinine m easurement (mass/volume)Ordered By: Greg Philip on 09-06-2023 Creatinine [Mass/Vol] 0.66 mg/dL 0.55-1.02 [facility] Comment on above: The validity of the calculated GFR & GFRAA in patients over 70 years has not been determined. Clinical correlation is essential. Serum or plasma urea nitroge n measurement (mass/volume)Ordered By: Greg Philip on 09-06-2023 Urea nitrogen [Mass/Vol] 15 mg/dL 7-18 [facility] Squamous epithelial cells de tection in urine sediment by light microscopyOrdered By: Greg Philip on 09-06-2023 Epithelial cells.squamous LM Ql (Urine sed) 5-10 SEEN /hpf 5-10 [facility] Thin prep Papanicolaou smear with manual screeningOrdered By: Greg Philip on 09-06-2023 Thin prep Papanicolaou smear with manual screening 28 U/L 15-37 [facility] Thin prep Papanicolaou smear with manual screening 4 5-15 [facility] Urine blood detectionOrdered By: Greg Philip on 09-06-2023 RBC Ql (U) Negative Negative [facility] RBC Ql (U) 0 SEEN /hpf 0-5 [facility] Urine clarityOrdered By: Allyn Philip on 09-06-2023 Clarity (U) Clear Clear [facility] Urine color determinationOrd ered By: Greg Philip on 09-06-2023 Color (U) Yellow Yellow [facility] Urine glucose detectionOrder ed By: Greg Philip on 09-06-2023 Glucose Ql (U) 50 mg/dl Normal [facility] Urine leukocyte esterase det ection by dipstickOrdered By: Greg Philip on 09-06-2023 Leukocyte esterase Test strip Ql (U) Negative Negative [facility] Urine pHOrdered By: Greg sun on 09-06-2023 pH (U) 6.5 [pH] 5.0 - 8.0 [facility] Urine sediment bacteria coun t by microscopy (number/high power field)Ordered By: Greg Philip on 09-06-2023 Bacteria LM.HPF (Urine sed) [#/Area] 0 /[HPF] None Seen [facility] Urine specific gravity measu rementOrdered By: Greg Philip on 09-06-2023 Specific gravity (U) [Rel density] 1.020 1.002-1.030 [facility] Urobilinogen Auto test strip Ql (U)Ordered By: Greg Philip on 09-06-2023 Urobilinogen Ql (U) 1 mg/dl Normal [facility] Absolute lymphocyte countOrd ered By: Marc Carl on 08-22-2023 Lymphocytes Auto (Unsp spec) [#/Vol] 2.29 10*3/uL 0.83-4.51 [facility] Basophil percentageOrdered B y: Marc Carl on 08-22-2023 Basophil percentage 0 SEEN /hpf 0-5 [facility] Basophils/100 WBC (Bld) 0.6 % 0-1 [facility] Bilirubin [Mass/Vol] 0.50 mg/dL 0.20-1.00 [facility] Comment on above: For patients on eltr ombopag therapy, use of [employer] TBIL is not recommended. Chloride [Moles/Vol] 106 mmol/L 98-107 [facility] Eosinophils/100 WBC (Bld) 0.9 % 0-5 [facility] Glucose [Mass/Vol] 397 mg/dL 74-106 [facility] Comment on above: Glucose result great er than or equal to 200 mg/dLsuggests DIABETES MELLITUS per A.D.A. criteria. Neutrophils (Bld) [#/Vol] 4.8 10*3/uL 2.0-7.7 [facility] Neutrophils/100 WBC (Bld) 60.5 % 47-70 [facility] Potassium [Moles/Vol] 4.1 mmol/L 3.5-5.1 [facility] Protein [Mass/Vol] 6.6 g/dL 6.4-8.2 [facility] Sodium [Moles/Vol] 138 mmol/L 136-145 [facility] WBC (Bld) [#/Vol] 8.0 10*3/uL 4.4-11.0 [facility] Bilirubin Test strip Ql (U)O rdered By: Marc Carl on 08-22-2023 Bilirubin Ql (U) Negative Negative [facility] Blood erythrocytes count (nu mber/volume)Ordered By: Marc Carl on 08-22-2023 RBC (Bld) [#/Vol] 4.04 10*6/uL 4.2-5.4 [facility] Blood hemoglobin measurement (mass/volume)Ordered By: Marc Carl on 08-22-2023 Hemoglobin (Bld) [Mass/Vol] 11.6 g/dL 12.0-15.0 [facility] Blood lymphocytes/100 leukoc ytesOrdered By: Marc Carl on 08-22-2023 Lymphocytes/100 WBC (Bld) 28.7 % 19-41 [facility] Blood monocytes/100 leukocyt esOrdered By: Marc Carl on 08-22-2023 Monocytes/100 WBC (Bld) 7.9 % 0-10 [facility] Blood platelet mean volumeOr dered By: Marc Carl on 08-22-2023 Platelet mean volume (Bld) [Entitic vol] 12.0 fL 6.2-12.0 [facility] Determination of erythrocyte mean corpuscular volume (MCV)Ordered By: Marc Carl on 08-22-2023 MCV (RBC) [Entitic vol] 92.3 fL 81-99 [facility] Glucose Glucometer (BldC) [M ass/Vol]Ordered By: Marc Carl on 08-22-2023 Glucose [Mass/Vol] 207 mg/dL 74-106 [facility] Comment on above: MANAGEMENT OF PATIEN T CARE PER NURSING PROTOCOL Hematocrit Auto (Bld) [Volum e fraction]Ordered By: Marc Carl on 08-22-2023 Hematocrit (Bld) [Volume fraction] 37.3 % 37-47 [facility] Ketones Test strip Ql (U)Ord ered By: Marc Carl on 08-22-2023 Ketones Ql (U) 5 mg/dl Negative [facility] Laboratory - Chemistry and C hemistry - challengeOrdered By: Marc Carl on 08-22-2023 ALP [Catalytic activity/Vol] 72 U/L 45-117 [facility] ALT [Catalytic activity/Vol] 87 U/L 13-56 [facility] CO2 [Moles/Vol] 27.0 mmol/L 21.0-32.0 [facility] Globulin (S) [Mass/Vol] 3.3 g/dL 2.2-4.2 [facility] Urea nitrogen/Creatinine [Mass ratio] 13.4 mg/mg 10-20 [facility] - Hematology and Cell countsOrdered By: Marc Carl on 08-22-2023 Erythrocyte distribution width (RBC) [Entitic vol] 45.2 fL 35.1-43.9 [facility] Erythrocyte distribution width (RBC) [Ratio] 13.4 % 11.6-14.6 [facility] Immature granulocytes/100 WBC (Bld) 1.400 % 0.0-0.9 [facility] Comment on above: IG% - Immature Granu locytes (promyelocytes, myelocytes and metamyelocytes) > 1% indicates that a LEFT SHIFT is Present. MCH (RBC) [Entitic mass] 28.7 pg 27.0-32.0 [facility] Nucleated RBC/100 WBC (Bld) [Ratio] 0 % 0-5 [facility] MCHC Auto (RBC) [Mass/Vol]Or dered By: Marc Carl on 08-22-2023 MCHC (RBC) [Mass/Vol] 31.1 g/dL 32-36 [facility] Mucus LM Ql (Urine sed)Order ed By: Marc Carl on 08-22-2023 Mucus Ql (Urine sed) 0 SEEN /hpf [facility] Nitrite Test strip Ql (U)Ord ered By: Marc Carl on 08-22-2023 Nitrite Ql (U) Negative Negative [facility] No Panel InformationOrdered By: Marc Carl on 08-22-2023 Estimated Creatinine Clearance Calc 96.39 ml/min [facility] Estimated GFR (MDRD) Amer 95 mL/min >60 [facility] Comment on above: GFR Calc Estimated GFR (MDRD) Non-Af Amer 79 mL/min >60 [facility] Comment on above: Non- GFR Calc Platelets bldOrdered By: Filipe Carl on 08-22-2023 Platelets (Bld) [#/Vol] 206 10*3/uL 150-450 [facility] Protein Test strip Ql (U)Ord ered By: Marc Carl on 08-22-2023 Protein Ql (U) Negative Negative [facility] Serum or plasma albumin milli urement (mass/volume)Ordered By: Marc Carl on 08-22-2023 Albumin [Mass/Vol] 3.3 g/dL 3.2-5.0 [facility] Serum or plasma albumin/glob ulin mass ratioOrdered By: Marc Carl on 08-22-2023 Albumin/Globulin [Mass ratio] 1.0 {ratio} 0.9-2.4 [facility] Serum or plasma calcium milli urement (mass/volume)Ordered By: Marc Carl on 08-22-2023 Calcium [Mass/Vol] 8.4 mg/dL 8.5-10.1 [facility] Serum or plasma creatinine m easurement (mass/volume)Ordered By: Marc Carl on 08-22-2023 Creatinine [Mass/Vol] 0.90 mg/dL 0.55-1.02 [facility] Comment on above: The validity of the calculated GFR & GFRAA in patients over 70 years has not been determined. Clinical correlation is essential. Serum or plasma urea nitroge n measurement (mass/volume)Ordered By: Marc Carl on 08-22-2023 Urea nitrogen [Mass/Vol] 12 mg/dL 7-18 [facility] Squamous epithelial cells de tection in urine sediment by light microscopyOrdered By: Marc Carl on 08-22-2023 Epithelial cells.squamous LM Ql (Urine sed) 0-5 SEEN /hpf 5-10 [facility] Thin prep Papanicolaou smear with manual screeningOrdered By: Marc Carl on 08-22-2023 Thin prep Papanicolaou smear with manual screening 36 U/L 15-37 [facility] Thin prep Papanicolaou smear with manual screening 5 5-15 [facility] Urine blood detectionOrdered By: Marc Carl on 08-22-2023 RBC Ql (U) Negative Negative [facility] RBC Ql (U) 0 SEEN /hpf 0-5 [facility] Urine clarityOrdered By: Filipe Carl on 08-22-2023 Clarity (U) Clear Clear [facility] Urine color determinationOrd ered By: Marc Carl on 08-22-2023 Color (U) Yellow Yellow [facility] Urine glucose detectionOrder ed By: Marc Carl on 08-22-2023 Glucose Ql (U) 1000 mg/dl Normal [facility] Urine leukocyte esterase det ection by dipstickOrdered By: Marc Carl on 08-22-2023 Leukocyte esterase Test strip Ql (U) Negative Negative [facility] Urine pHOrdered By: Marc griffiths on 08-22-2023 pH (U) 8.0 [pH] 5.0 - 8.0 [facility] Urine sediment bacteria coun t by microscopy (number/high power field)Ordered By: Marc Carl on 08-22-2023 Bacteria LM.HPF (Urine sed) [#/Area] 0 /[HPF] None Seen [facility] Urine specific gravity measu rementOrdered By: Marc Carl on 08-22-2023 Specific gravity (U) [Rel density] 1.010 1.002-1.030 [facility] Urobilinogen Auto test strip Ql (U)Ordered By: Marc Carl on 08-22-2023 Urobilinogen Ql (U) Normal mg/dl Normal [facility] Basophil percentageOrdered B y: Dangelo Encarnacion on 08-10-2023 Chloride [Moles/Vol] 109 mmol/L 98-107 [facility] Glucose [Mass/Vol] 195 mg/dL 74-106 [facility] Comment on above: Fasting Glucose resu lt greater than or equal to 126 mg/dL suggests DIABETES MELLITUS per A.D.A. criteria. Potassium [Moles/Vol] 3.7 mmol/L 3.5-5.1 [facility] Sodium [Moles/Vol] 139 mmol/L 136-145 [facility] WBC (Bld) [#/Vol] 8.5 10*3/uL 4.4-11.0 [facility] Blood erythrocytes count (nu mber/volume)Ordered By: Dangelo Encarnacion on 08-10-2023 RBC (Bld) [#/Vol] 4.50 10*6/uL 4.2-5.4 [facility] Blood hemoglobin measurement (mass/volume)Ordered By: Dangelo Encarnacion on 08-10-2023 Hemoglobin (Bld) [Mass/Vol] 13.0 g/dL 12.0-15.0 [facility] Blood platelet mean volumeOr dered By: Dangelo Encarnacion on 08-10-2023 Platelet mean volume (Bld) [Entitic vol] 11.8 fL 6.2-12.0 [facility] Determination of erythrocyte mean corpuscular volume (MCV)Ordered By: Dangelo Encarnacion on 08-10-2023 MCV (RBC) [Entitic vol] 88.2 fL 81-99 [facility] Glucose Glucometer (BldC) [M ass/Vol]Ordered By: Dangelo Encarnacion on 08-10-2023 Glucose [Mass/Vol] 208 mg/dL 74-106 [facility] Comment on above: MANAGEMENT OF PATIEN T CARE PER NURSING PROTOCOL Hematocrit Auto (Bld) [Volum e fraction]Ordered By: Dangelo Encarnacion on 08-10-2023 Hematocrit (Bld) [Volume fraction] 39.7 % 37-47 [facility] - Chemistry and C hemistry - challengeOrdered By: Dangelo Encarnacion on 08-10-2023 CO2 [Moles/Vol] 20.0 mmol/L 21.0-32.0 [facility] Urea nitrogen/Creatinine [Mass ratio] 15.4 mg/mg 10-20 [facility] - Hematology and Cell countsOrdered By: Dangelo Encarnacion on 08-10-2023 Erythrocyte distribution width (RBC) [Entitic vol] 42.0 fL 35.1-43.9 [facility] Erythrocyte distribution width (RBC) [Ratio] 12.9 % 11.6-14.6 [facility] MCH (RBC) [Entitic mass] 28.9 pg 27.0-32.0 [facility] MCHC Auto (RBC) [Mass/Vol]Or dered By: Dangelo Encarnacion on 08-10-2023 MCHC (RBC) [Mass/Vol] 32.7 g/dL 32-36 [facility] No Panel InformationOrdered By: Dangelo Encarnacion on 08-10-2023 Estimated Creatinine Clearance Calc 149.57 ml/min [facility] Estimated GFR (MDRD) Amer 157 mL/min >60 [facility] Comment on above: GFR Calc Estimated GFR (MDRD) Non-Af Amer 129 mL/min >60 [facility] Comment on above: Non- GFR Calc Platelets bldOrdered By: Lauren Encarnacion on 08-10-2023 Platelets (Bld) [#/Vol] 109 10*3/uL 150-450 [facility] Serum or plasma calcium milli urement (mass/volume)Ordered By: Dangelo Encarnacion on 08-10-2023 Calcium [Mass/Vol] 8.0 mg/dL 8.5-10.1 [facility] Serum or plasma creatinine m easurement (mass/volume)Ordered By: Dangelo Encarnacion on 08-10-2023 Creatinine [Mass/Vol] 0.58 mg/dL 0.55-1.02 [facility] Comment on above: The validity of the calculated GFR & GFRAA in patients over 70 years has not been determined. Clinical correlation is essential. Serum or plasma urea nitroge n measurement (mass/volume)Ordered By: Dangelo Encarnacion on 08-10-2023 Urea nitrogen [Mass/Vol] 9 mg/dL 7-18 [facility] Thin prep Papanicolaou smear with manual screeningOrdered By: Dangelo Encarnacion on 08-10-2023 Thin prep Papanicolaou smear with manual screening 10 5-15 [facility] Basophil percentageOrdered B y: Lul Nkechibing on 08-07-2023 Lactate [Moles/Vol] 2.2 mmol/L 0.4-2.0 [facility] Comment on above: Critical Result(s) C alled at: 06:54:28 08/07/2023 by: Reid Rogers. Colin Hopkins RN (ICU). Results read back by same. HCO3 (BldA) [Moles/Vol]Order ed By: Vamsi Lewis on 08-07-2023 HCO3 (Bld) [Moles/Vol] 12 mmol/L 22- [facility] - Chemistry and C hemistry - challengeOrdered By: Vamsi Lewis on 08-07-2023 CO2 [Moles/Vol] 13 mmol/L 23-33 [facility] Magnesium [Mass/Vol] 1.8 mg/dL 1.6-2.6 [facility] Comment on above: Slight Hemolysis, Re sult may be falsely increased. No Panel InformationOrdered By: Vamsi Lewis on 08-07-2023 Bed Mix Venous Bld PCO2 at Pat Temp 28.0 mmHg 41-51 [facility] Blood Gas Oxygen Percent 21.0 [facility] Blood Gas Sample Site Not entered [facility] Blood Gas Specimen Type ISABELLE [facility] Oxygen Delivery Device Not entered [facility] Venous Blood Base Excess -16 mmol/L -1.0-3.5 [facility] PO2 venousOrdered By: Vamsi Lewis on 08-07-2023 Oxygen (BldV) [Partial pressure] 52 mm[Hg] 25-40 [facility] Respiratory pathogens detect ion panel by molecular detection methodOrdered By: Vamsi Lewis on 08-07-2023 Respiratory pathogens DNA and RNA panel DANIEL+probe (Resp) [facility] Respiratory pathogens DNA and RNA panel DANIEL+probe (Resp) [facility] Serum or plasma acetone milli urement (mass/volume)Ordered By: Vamsi Lewis on 08-07-2023 Acetone [Mass/Vol] MODERATE NEG [facility] Vital signsOrdered By: Vamsi Lewis on 08-07-2023 Oxygen saturation in Blood 81 % 50-70 [facility] Whole blood hemoglobin A1c/t otal hemoglobin ratio (mass fraction)Ordered By: Vamsi Lewis on 08-07-2023 HbA1c (Bld) [Mass fraction] 7.0 % 3.8-5.6 [facility] Comment on above: Normal < 5.7 % Predi abetic 5.7 - 6.4 % Diabetic >or= 6.5 % Please note range changes. pH measurementOrdered By: Miller Lewis on 08-07-2023 pH (Unsp spec) 7.24 [pH] 7.32-7.42 [facility] Absolute lymphocyte countOrd ered By: Lul Singh on 08-06-2023 Lymphocytes Auto (Unsp spec) [#/Vol] 0.42 10*3/uL 0.83-4.51 [facility] Absolute lymphocyte countOrd ered By: Juan Marquez on 08-06-2023 Lymphocytes Auto (Unsp spec) [#/Vol] 1.08 10*3/uL 0.83-4.51 [facility] Basophil percentageOrdered B y: Lul Singh on 08-06-2023 Basophils/100 WBC (Bld) 0.5 % 0-1 [facility] Chloride [Moles/Vol] 101 mmol/L 98-107 [facility] Eosinophils/100 WBC (Bld) 0.0 % 0-5 [facility] Glucose [Mass/Vol] 548 mg/dL 74-106 [facility] Comment on above: Critical Result(s) C alled at: 23:51:02 08/06/2023 by: Jay Hill. colin Castro (RN) (ED) Results read back by same.Glucose result greater than or equal to 200 mg/dLsuggests DIABETES MELLITUS per A.D.A. criteria. Lactate [Moles/Vol] 4.4 mmol/L 0.4-2.0 [facility] Comment on above: Critical Result(s) C alled at: 23:51:02 08/06/2023 by: Jay Hill. to Matthew AcuñaRN) (ED) Results read back by same. Neutrophils (Bld) [#/Vol] 18.8 10*3/uL 2.0-7.7 [facility] Neutrophils/100 WBC (Bld) 92.7 % 47-70 [facility] Potassium [Moles/Vol] 4.8 mmol/L 3.5-5.1 [facility] Sodium [Moles/Vol] 132 mmol/L 136-145 [facility] WBC (Bld) [#/Vol] 20.3 10*3/uL 4.4-11.0 [facility] Basophil percentage 0 SEEN /hpf 0-5 [facility] Basophil percentageOrdered B y: Juan Marquez on 08-06-2023 Basophils/100 WBC (Bld) 0.2 % 0-1 [facility] Bilirubin [Mass/Vol] 0.70 mg/dL 0.20-1.00 [facility] Comment on above: For patients on eltr ombopag therapy, use of [employer] TBIL is not recommended. Chloride [Moles/Vol] 108 mmol/L 98-107 [facility] Eosinophils/100 WBC (Bld) 0.1 % 0-5 [facility] Glucose [Mass/Vol] 69 mg/dL 74-106 [facility] Neutrophils (Bld) [#/Vol] 19.2 10*3/uL 2.0-7.7 [facility] Neutrophils/100 WBC (Bld) 87.7 % 47-70 [facility] Potassium [Moles/Vol] 3.3 mmol/L 3.5-5.1 [facility] Protein [Mass/Vol] 7.5 g/dL 6.4-8.2 [facility] Sodium [Moles/Vol] 139 mmol/L 136-145 [facility] WBC (Bld) [#/Vol] 21.9 10*3/uL 4.4-11.0 [facility] Beta hCG serum qualOrdered B y: Juan Marquez on 08-06-2023 Beta HCG ( test) Ql Negative [facility] Bilirubin Test strip Ql (U)O rdered By: Lul Singh on 08-06-2023 Bilirubin Ql (U) Negative Negative [facility] Blood erythrocytes count (nu mber/volume)Ordered By: Lul Singh on 08-06-2023 RBC (Bld) [#/Vol] 4.35 10*6/uL 4.2-5.4 [facility] Blood erythrocytes count (nu mber/volume)Ordered By: Juan Marquez on 08-06-2023 RBC (Bld) [#/Vol] 5.03 10*6/uL 4.2-5.4 [facility] Blood hemoglobin measurement (mass/volume)Ordered By: Lul Singh on 08-06-2023 Hemoglobin (Bld) [Mass/Vol] 12.6 g/dL 12.0-15.0 [facility] Blood hemoglobin measurement (mass/volume)Ordered By: Juan Marquez on 08-06-2023 Hemoglobin (Bld) [Mass/Vol] 14.7 g/dL 12.0-15.0 [facility] Blood lymphocytes/100 leukoc ytesOrdered By: Lul Singh on 08-06-2023 Lymphocytes/100 WBC (Bld) 2.1 % [facility] Blood lymphocytes/100 leukoc ytesOrdered By: Juan Marquez on 08-06-2023 Lymphocytes/100 WBC (Bld) 4.9 % - [facility] Blood manual differential co mment interpretation (narrative result)Ordered By: Lul Singh on 08-06-2023 Manual differential comment Faraz (Bld) [Interp] SCANNED [facility] Comment on above: LYMPHOPENIA PRESENT Blood monocytes/100 leukocyt esOrdered By: Lul Singh on 08-06-2023 Monocytes/100 WBC (Bld) 2.0 % 0-10 [facility] Blood monocytes/100 leukocyt esOrdered By: Juan Marquez on 08-06-2023 Monocytes/100 WBC (Bld) 5.6 % 0-10 [facility] Blood platelet mean volumeOr dered By: Lul Singh on 08-06-2023 Platelet mean volume (Bld) [Entitic vol] 13.8 fL 6.2-12.0 [facility] Blood platelet mean volumeOr dered By: Juan Marquez on 08-06-2023 Platelet mean volume (Bld) [Entitic vol] 12.1 fL 6.2-12.0 [facility] Determination of erythrocyte mean corpuscular volume (MCV)Ordered By: Lul Singh on 08-06-2023 MCV (RBC) [Entitic vol] 93.1 fL 81-99 [facility] Determination of erythrocyte mean corpuscular volume (MCV)Ordered By: Juan Marquez on 08-06-2023 MCV (RBC) [Entitic vol] 88.9 fL 81-99 [facility] Glucose Glucometer (dC) [M ass/Vol]Ordered By: Juan Marquez on 08-06-2023 Glucose [Mass/Vol] 397 mg/dL 74-106 [facility] Comment on above: MANAGEMENT OF PATIEN T CARE PER NURSING PROTOCOL HCO3 (BldA) [Moles/Vol]Order ed By: Lul Singh on 08-06-2023 HCO3 (Bld) [Moles/Vol] 12 mmol/L 22-26 [facility] Hematocrit Auto (Bld) [Volum e fraction]Ordered By: Lul Singh on 08-06-2023 Hematocrit (Bld) [Volume fraction] 40.5 % 37-47 [facility] Hematocrit Auto (Bld) [Volum e fraction]Ordered By: Juan Marquez on 08-06-2023 Hematocrit (Bld) [Volume fraction] 44.7 % 37-47 [facility] Ketones Test strip Ql (U)Ord ered By: Lul Singh on 08-06-2023 Ketones Ql (U) 150 mg/dl Negative [facility] Comment on above: CRITICAL VALUE *HCRI TICAL VALUE VERIFIED. CALLED TO [id number]/11/23 0049 [place].RESULTS READ BACK BY SAME. Laboratory - Chemistry and C hemistry - challengeOrdered By: Lul Singh on 08-06-2023 CO2 [Moles/Vol] 13 mmol/L 23-33 [facility] CO2 [Moles/Vol] 14.0 mmol/L 21.0-32.0 [facility] Magnesium [Mass/Vol] 2.0 mg/dL 1.6-2.6 [facility] Urea nitrogen/Creatinine [Mass ratio] 16.1 mg/mg 10- [facility] Laboratory - Chemistry and C hemistry - challengeOrdered By: Juan Marquez on 08-06-2023 ALP [Catalytic activity/Vol] 94 U/L 45-117 [facility] ALT [Catalytic activity/Vol] 32 U/L 13-56 [facility] CO2 [Moles/Vol] 26.0 mmol/L 21.0-32.0 [facility] Globulin (S) [Mass/Vol] 3.6 g/dL 2.2-4.2 [facility] Lipase [Catalytic activity/Vol] 16 U/L 13-75 [facility] Comment on above: Please note:LIPASE r evised reference range effective 22. New Lipase methodology. Expected to produce lower values than the previous assay method. NEW Reference Range: 13 - 75 U/L Urea nitrogen/Creatinine [Mass ratio] 20.0 mg/mg - [facility] Laboratory - Hematology and Cell countsOrdered By: Lul Singh on 08-06-2023 Erythrocyte distribution width (RBC) [Entitic vol] 45.1 fL 35.1-43.9 [facility] Erythrocyte distribution width (RBC) [Ratio] 13.2 % 11.6-14.6 [facility] Immature granulocytes/100 WBC (Bld) 2.700 % 0.0-0.9 [facility] Comment on above: IG% - Immature Granu locytes (promyelocytes, myelocytes and metamyelocytes) > 1% indicates that a LEFT SHIFT is Present. MCH (RBC) [Entitic mass] 29.0 pg 27.0-32.0 [facility] Nucleated RBC/100 WBC (Bld) [Ratio] 0 % 0-5 [facility] Laboratory - Hematology and Cell countsOrdered By: Juan Marquez on 08-06-2023 Erythrocyte distribution width (RBC) [Entitic vol] 42.0 fL 35.1-43.9 [facility] Erythrocyte distribution width (RBC) [Ratio] 12.9 % 11.6-14.6 [facility] Immature granulocytes/100 WBC (Bld) 1.500 % 0.0-0.9 [facility] Comment on above: IG% - Immature Granu locytes (promyelocytes, myelocytes and metamyelocytes) > 1% indicates that a LEFT SHIFT is Present. MCH (RBC) [Entitic mass] 29.2 pg 27.0-32.0 [facility] Nucleated RBC/100 WBC (Bld) [Ratio] 0 % 0-5 [facility] MCHC Auto (RBC) [Mass/Vol]Or dered By: Lul Singh on 08-06-2023 MCHC (RBC) [Mass/Vol] 31.1 g/dL [facility] Comment on above: Delta: 32.9 on 08/06 MCHC Auto (RBC) [Mass/Vol]Or dered By: Juan Marquez on 08-06-2023 MCHC (RBC) [Mass/Vol] 32.9 g/dL [facility] Mucus LM Ql (Urine sed)Order ed By: Lul Singh on 08-06-2023 Mucus Ql (Urine sed) 0 SEEN /hpf [facility] Nitrite Test strip Ql (U)Ord ered By: Lul Singh on 08-06-2023 Nitrite Ql (U) Negative Negative [facility] No Panel InformationOrdered By: Lul Singh on 08-06-2023 Bed Mix Venous Bld PCO2 at Pat Temp 22.9 mmHg 41-51 [facility] Blood Gas Sample Site Not entered [facility] Blood Gas Specimen Type ISABELLE [facility] Oxygen Delivery Device Room Air [facility] Venous Blood Base Excess -14 mmol/L -1.0-3.5 [facility] Estimated Creatinine Clearance Calc 73.52 ml/min [facility] Estimated GFR (MDRD) Amer 70 mL/min >60 [facility] Comment on above: GFR Calc Estimated GFR (MDRD) Non-Af Amer 58 mL/min >60 [facility] Comment on above: Non- GFR Calc No Panel InformationOrdered By: Juan Marquez on 12-10-2023 Estimated Creatinine Clearance Calc 108.44 ml/min [facility] Estimated GFR (MDRD) Amer 109 mL/min >60 [facility] Comment on above: GFR Calc Estimated GFR (MDRD) Non-Af Amer 90 mL/min >60 [facility] Comment on above: Non- GFR Calc PO2 venousOrdered By: Lul Singh on 08-06-2023 Oxygen (BldV) [Partial pressure] 58 mm[Hg] 25-40 [facility] Platelets bldOrdered By: Lane Singh on 08-06-2023 Platelets (Bld) [#/Vol] 140 10*3/uL 150-450 [facility] Platelets bldOrdered By: Lauren Marquez on 08-06-2023 Platelets (Bld) [#/Vol] 199 10*3/uL 150-450 [facility] Protein Test strip Ql (U)Ord ered By: Lul Singh on 08-06-2023 Protein Ql (U) Negative Negative [facility] Serum or plasma acetone milli urement (mass/volume)Ordered By: Lul Singh on 08-06-2023 Acetone [Mass/Vol] SMALL NEG [facility] Serum or plasma albumin milli urement (mass/volume)Ordered By: Juan Marquez on 08-06-2023 Albumin [Mass/Vol] 3.9 g/dL 3.2-5.0 [facility] Serum or plasma albumin/glob ulin mass ratioOrdered By: Juan Marquez on 08-06-2023 Albumin/Globulin [Mass ratio] 1.1 {ratio} 0.9-2.4 [facility] Serum or plasma calcium milli urement (mass/volume)Ordered By: Lul Singh on 08-06-2023 Calcium [Mass/Vol] 9.1 mg/dL 8.5-10.1 [facility] Serum or plasma calcium milli urement (mass/volume)Ordered By: Juan Marquez on 08-06-2023 Calcium [Mass/Vol] 9.6 mg/dL 8.5-10.1 [facility] Serum or plasma creatinine m easurement (mass/volume)Ordered By: Lul Singh on 08-06-2023 Creatinine [Mass/Vol] 1.18 mg/dL 0.55-1.02 [facility] Comment on above: The validity of the calculated GFR & GFRAA in patients over 70 years has not been determined. Clinical correlation is essential. Serum or plasma creatinine m easurement (mass/volume)Ordered By: Juan Marquez on 08-06-2023 Creatinine [Mass/Vol] 0.80 mg/dL 0.55-1.02 [facility] Comment on above: The validity of the calculated GFR & GFRAA in patients over 70 years has not been determined. Clinical correlation is essential. Serum or plasma urea nitroge n measurement (mass/volume)Ordered By: Lul Singh on 08-06-2023 Urea nitrogen [Mass/Vol] 19 mg/dL 03-14 [facility] Serum or plasma urea nitroge n measurement (mass/volume)Ordered By: Juan Marquez on 08-06-2023 Urea nitrogen [Mass/Vol] 16 mg/dL 03-14 [facility] Squamous epithelial cells de tection in urine sediment by light microscopyOrdered By: Lul Singh on 08-06-2023 Epithelial cells.squamous LM Ql (Urine sed) 0-5 SEEN /hpf -10 [facility] Thin prep Papanicolaou smear with manual screeningOrdered By: Lul Singh on 08-06-2023 Thin prep Papanicolaou smear with manual screening 17 5-15 [facility] Thin prep Papanicolaou smear with manual screeningOrdered By: Juan Marquez on 08-06-2023 Thin prep Papanicolaou smear with manual screening 15 U/L 15-37 [facility] Thin prep Papanicolaou smear with manual screening 5 5-15 [facility] Urine blood detectionOrdered By: Lul Singh on 08-06-2023 RBC Ql (U) 10 /ul Negative [facility] RBC Ql (U) 0 SEEN /hpf 0-5 [facility] Urine clarityOrdered By: Lane Singh on 08-06-2023 Clarity (U) Clear Clear [facility] Urine color determinationOrd ered By: Lul Singh on 08-06-2023 Color (U) Yellow Yellow [facility] Urine glucose detectionOrder ed By: Lul Singh on 08-06-2023 Glucose Ql (U) 1000 mg/dl Normal [facility] Urine leukocyte esterase det ection by dipstickOrdered By: Lul Singh on 08-06-2023 Leukocyte esterase Test strip Ql (U) Negative Negative [facility] Urine pHOrdered By: Lul fontaine on 08-06-2023 pH (U) 5.0 [pH] 5.0 - 8.0 [facility] Urine sediment bacteria coun t by microscopy (number/high power field)Ordered By: Lul Singh on 08-06-2023 Bacteria LM.HPF (Urine sed) [#/Area] 0 /[HPF] None Seen [facility] Urine specific gravity measu rementOrdered By: Lul Singh on 08-06-2023 Specific gravity (U) [Rel density] 1.015 1.002-1.030 [facility] Urobilinogen Auto test strip Ql (U)Ordered By: Lul Singh on 08-06-2023 Urobilinogen Ql (U) Normal mg/dl Normal [facility] Vital signsOrdered By: Partha Singh on 08-06-2023 Oxygen saturation in Blood 89 % 50-70 [facility] pH measurementOrdered By: Yarelis Singh on 08-06-2023 pH (Unsp spec) 7.34 [pH] 7.32-7.42 [facility] CBC panel Auto (Bld)on 07-12 Erythrocyte distribution width (RBC) [Ratio] 13.3 % Normal 11.5-15.0 [facility] Comment on above: Order Comment: Speci men Type: BLOOD SPECIMEN Ordering Facility: [facility] Address: [address] [phone] Performed By: #### 3 1201-7, 5195-3, 65567-1, SYPH #### [facility] CLIA [id number] [address] [place] [address] [place] Hematocrit (Bld) [Volume fraction] 44.2 % Normal 36.0-46.0 [facility] Comment on above: Order Comment: Speci men Type: BLOOD SPECIMEN Ordering Facility: [facility] Address: [address] [phone] Performed By: #### 3 1201-7, 5195-3, 98238-3, SYPH #### [facility] CLIA [id number] [address] [place], [place] [id number] [place] Hemoglobin (Bld) [Mass/Vol] 14.8 g/dL Normal 11.5-15.5 [facility] Comment on above: Order Comment: Speci men Type: BLOOD SPECIMEN Ordering Facility: [facility] Address: [address] [place] [address] Performed By: #### 3 1201-7, 5194-3, 41874-7, SYPH #### [facility] CLIA [id number] [address] [place] [address] [place] MCH (RBC) [Entitic mass] 29.4 pg Normal 26.0-34.0 [facility] Comment on above: Order Comment: Speci men Type: BLOOD SPECIMEN Ordering Facility: [facility] Address: [address] [place] [address] Performed By: #### 3 120-7, 3, , SYPH #### [facility] CLIA [id number] [address] [place] [address] [place] MCHC (RBC) [Mass/Vol] 33.5 g/dL Normal 30.5-36.0 [facility] Comment on above: Order Comment: Speci men Type: BLOOD SPECIMEN Ordering Facility: [facility] Address: [address] [place] [address] Performed By: #### 3 1201-7, 5194-3, , SYPH #### [facility] CLIA [id number] [address] [place] [address] [place] MCV (RBC) [Entitic vol] 87.7 fL Normal 80.0-100.0 [facility] Comment on above: Order Comment: Speci men Type: BLOOD SPECIMEN Ordering Facility: [facility] Address: [address] [place] [address] Performed By: #### 3 1201-7, 5194-3, 47422-1, SYPH #### [facility] CLIA [id number] [address] [place] [address] [place] Nucleated RBC (Bld) [#/Vol] 10*3/uL Normal <0.01 [facility] Comment on above: Order Comment: Speci men Type: BLOOD SPECIMEN Ordering Facility: [facility] Address: [address] [place] [address] Performed By: #### 3 1201-7, 5195-3, 27055-0, SYPH #### [facility] CLIA [id number] [address] [place] [address] [place] Platelet mean volume (Bld) [Entitic vol] 13.3 fL High 9.0-12.7 [facility] Comment on above: Order Comment: Speci men Type: BLOOD SPECIMEN Ordering Facility: [facility] Address: [address] [place] [address] Performed By: #### 3 1201-7, 5195-3, 36045-5, SYPH #### [facility] CLIA [id number] [address] [place] [address] [place] Platelets (Bld) [#/Vol] 111 10*3/uL Low 150-400 [facility] Comment on above: Order Comment: Speci men Type: BLOOD SPECIMEN Ordering Facility: [facility] Address: [address] [place] [address] Result Comment: No c lot detected. Performed By: #### 3 1201-7, 5195-3, 31696-8, SYPH #### [facility] CLIA [id number] [address] [place] [address] [place] RBC (Bld) [#/Vol] 5.04 10*6/uL Normal 3.90-5.20 [facility] Comment on above: Order Comment: Speci men Type: BLOOD SPECIMEN Ordering Facility: [facility] Address: [address] [place] [address] Performed By: #### 3 1201-7, 5195-3, 78661-5, SYPH #### [facility] CLIA [id number] [address] [place] [address] [place] WBC (Bld) [#/Vol] 11.34 10*3/uL High 3.70-11.00 [facility] Comment on above: Order Comment: Speci men Type: BLOOD SPECIMEN Ordering Facility: [facility] Address: [address] [place], [place] [address] [phone] Performed By: #### 3 1201-7, 5195-3, 94609-9, [place] #### [facility] CLIA [id number] [address] [id number] [place] CTA ABD/PEL W IVCONon 2022 CTA ABD/PEL W IVCON * * *Final Report* * * DATE OF EXAM: Jul 12 2023 10:08AM [facility] 0311 - CTA ABD/PEL W IVCON / PROCEDURE REASON: Aortic dissection suspected * * * * Physician Interpretation * * * * CTA chest, abdomen and pelvis dated 07/12/2023 10:08 AM. Comparison: CTA chest abdomen and pelvis 11/02/2022 History: 27 years old Female with aortic dissection suspected. Technique: High-resolution contrast-enhanced helical CT of the chest, abdomen, and pelvis was performed, timed to the arterial phase. 3-D processing was performed by the physician on an independent work station, with MIP and volume-rendering techniques. Total of 100 ml of Isovue 370 was injected IV during the examination. The study was performed without oral contrast. CT Dose-Length Product (DLP): 2346.[address] Dose Reduction Employed: Automated exposure control(AEC) and iterative recon For optimization of anatomic evaluation, multiplanar reconstruction, maximum intensity projections, and advanced 3-D off-line postprocessing were performed on a dedicated stand-alone workstation by the interpreting physician. RESULT: Potential study limitations: None. VASCULAR FINDINGS Findings of a prior aortic root repair are noted. There is no evidence of aortic aneurysm, dissection or hemodynamically significant stenosis. There is normal and patent three-vessel branching pattern of the aortic arch. The celiac, superior mesenteric and inferior mesenteric arteries demonstrate no aneurysmal dilatation, dissection or hemodynamically significant stenosis. The bilateral common, internal and external iliac arteries are patent and aneurysmal dilatation, dissection or hemodynamically significant stenosis. There are no filling defects noted within the adequately opacified pulmonary arteries. NONVASCULAR FINDINGS Lines, tubes, and devices: Left-sided chest port with tip terminating at the cavoatrial junction. Lung parenchyma and airways: No consolidation. No suspicious pulmonary nodule. The central airways are patent. Pleural space: No pleural effusion. No pneumothorax. Lower neck, lymph nodes, and mediastinum: The imaged thyroid gland is normal. No lymphadenopathy in the supraclavicular, axillary, mediastinal, or hilar regions. Liver: No mass. Biliary: No bile duct dilation. Gallbladder is unremarkable. Spleen: No mass. No splenomegaly. Pancreas: No mass or duct dilation. Adrenals: No mass. Kidneys: Symmetric nephrograms. Ureters are normal in course and caliber. The urinary bladder is unremarkable. GI tract: No dilation or wall thickening. Lymph nodes: No abdominal or pelvic lymphadenopathy. Mesentery/Peritoneum: No ascites or mass. Retroperitoneum: No mass. Pelvis: No pelvic mass identified. A small amount of pelvic free fluid is noted and considered physiologic in a patient of this age. Bones and soft tissues: No destructive bone lesion. Chest and abdominal robert are unremarkable. Prior sternotomy noted. IMPRESSION: 1. Normal thoracic and abdominal aorta without acute aortic pathology. Dictated by Decator Operator: Dutch Aguilar DO I, Valdo Islas MD, have supervised the procedure and/or image review, and agree with the above interpretation and report. Promotions Coordinator: CONCHITA Transcribe Date/Time: Jul 12 2023 10:10A Dictated by : DUTCH AGUILAR DO This examination was interpreted and the report reviewed and electronically signed by: VALDO ISLAS MD on Jul 12 2023 2:59PM EST [id number] Normal [facility] CTA CHEST (GATED) WO/W IVCON on 07-12-2023 CTA CHEST (GATED) WO/W IVCON * * *Final Report* * * DATE OF EXAM: Jul 12 2023 10:08AM [facility] 0126 - CTA CHEST (GATED) WO/W IVCON / PROCEDURE REASON: Aortic dissection suspected * * * * Physician Interpretation * * * * CTA chest, abdomen and pelvis dated 07/12/2023 10:08 AM. Comparison: CTA chest abdomen and pelvis 11/02/2022 History: 27 years old Female with aortic dissection suspected. Technique: High-resolution contrast-enhanced helical CT of the chest, abdomen, and pelvis was performed, timed to the arterial phase. 3-D processing was performed by the physician on an independent work station, with MIP and volume-rendering techniques. Total of 100 ml of Isovue 370 was injected IV during the examination. The study was performed without oral contrast. CT Dose-Length Product (DLP): 2346.[address] Dose Reduction Employed: Automated exposure control(AEC) and iterative recon For optimization of anatomic evaluation, multiplanar reconstruction, maximum intensity projections, and advanced 3-D off-line postprocessing were performed on a dedicated stand-alone workstation by the interpreting physician. RESULT: Potential study limitations: None. VASCULAR FINDINGS Findings of a prior aortic root repair are noted. There is no evidence of aortic aneurysm, dissection or hemodynamically significant stenosis. There is normal and patent three-vessel branching pattern of the aortic arch. The celiac, superior mesenteric and inferior mesenteric arteries demonstrate no aneurysmal dilatation, dissection or hemodynamically significant stenosis. The bilateral common, internal and external iliac arteries are patent and aneurysmal dilatation, dissection or hemodynamically significant stenosis. There are no filling defects noted within the adequately opacified pulmonary arteries. NONVASCULAR FINDINGS Lines, tubes, and devices: Left-sided chest port with tip terminating at the cavoatrial junction. Lung parenchyma and airways: No consolidation. No suspicious pulmonary nodule. The central airways are patent. Pleural space: No pleural effusion. No pneumothorax. Lower neck, lymph nodes, and mediastinum: The imaged thyroid gland is normal. No lymphadenopathy in the supraclavicular, axillary, mediastinal, or hilar regions. Liver: No mass. Biliary: No bile duct dilation. Gallbladder is unremarkable. Spleen: No mass. No splenomegaly. Pancreas: No mass or duct dilation. Adrenals: No mass. Kidneys: Symmetric nephrograms. Ureters are normal in course and caliber. The urinary bladder is unremarkable. GI tract: No dilation or wall thickening. Lymph nodes: No abdominal or pelvic lymphadenopathy. Mesentery/Peritoneum: No ascites or mass. Retroperitoneum: No mass. Pelvis: No pelvic mass identified. A small amount of pelvic free fluid is noted and considered physiologic in a patient of this age. Bones and soft tissues: No destructive bone lesion. Chest and abdominal robert are unremarkable. Prior sternotomy noted. IMPRESSION: 1. Normal thoracic and abdominal aorta without acute aortic pathology. Dictated by Decator Operator: Dutch Aguilar DO I, Valdo Islas MD, have supervised the procedure and/or image review, and agree with the above interpretation and report. Promotions Coordinator: PSCB Transcribe Date/Time: Jul 12 2023 10:10A Dictated by : DUTCH AGUILAR DO This examination was interpreted and the report reviewed and electronically signed by: VALDO ISLAS MD on Jul 12 2023 2:59PM EST [id number] Normal [facility] Comprehensive metabolic 2000 panelon 07-12-2023 Albumin [Mass/Vol] 3.6 g/dL Normal 3.2-5.0 [facility] Comment on above: Order Comment: Jon russ Type: BLOOD SPECIMENOrdering Facility: [facility] Address: [address] [place] [address] Performed By: #### 2 4323-8, ####[facility] [id number] [place] [address] [place] ALP [Catalytic activity/Vol] 80 U/L Normal 45-117 [facility] Comment on above: Order Comment: Jon russ Type: BLOOD SPECIMENOrdering Facility: [facility] Address: [address] [place] [address] Performed By: #### 2 4323-8, ####[facility] [id number] [address] [place] ALT [Catalytic activity/Vol] 74 U/L High 13-61 [facility] Comment on above: Order Comment: Jon russ Type: BLOOD SPECIMENOrdering Facility: [facility] Address: [address] [place] [address] Result Comment: Resu lts may be falsely depressed after the administration of Sulfasalazine and/or Sulfapyridine. Performed By: #### 2 4323-8, ####[facility] [id number] [address] [id number] [place] Anion gap [Moles/Vol] 9 mmol/L Normal 5-16 [facility] Comment on above: Order Comment: Speci men Type: BLOOD SPECIMENOrdering Facility: [facility] Address: [address] [place] [address] Performed By: #### 2 4323-8, ####[facility] [id number] [address] [id number] [place] AST [Catalytic activity/Vol] 44 U/L High 8-34 [facility] Comment on above: Order Comment: Speci men Type: BLOOD SPECIMENOrdering Facility: [facility] Address: [address] [place] [address] Result Comment: Resu lts may be falsely depressed after the administration of Sulfasalazine and/or Sulfapyridine. Performed By: #### 2 4323-8, ####[facility] [id number] [place] [address] [place] Bilirubin [Mass/Vol] 0.4 mg/dL Normal 0.2-1.0 [facility] Comment on above: Order Comment: Speci men Type: BLOOD SPECIMENOrdering Facility: [facility] Address: [address] [place] [address] Performed By: #### 2 4323-8, ####[facility] HEALTH LABORATORYCLIA [id number] [place] [id number] [place] Calcium [Mass/Vol] 9.2 mg/dL Normal 8.5-10.5 [facility] Comment on above: Order Comment: Speci men Type: BLOOD SPECIMENOrdering Facility: [facility] Address: [address] [place] [address] Performed By: #### 2 4323-8, ####[facility] LABORATORYCLIA [id number] [place] [id number] [place] Chloride [Moles/Vol] 104 mmol/L Normal 98-107 [facility] Comment on above: Order Comment: Speci men Type: BLOOD SPECIMENOrdering Facility: [facility] Address: [address] [place] [address] Performed By: #### 2 4323-8, ####[facility] LABORATORYCLIA [id number] [place] [id number] [place] CO2 [Moles/Vol] 26 mmol/L Normal 21-32 [facility] Comment on above: Order Comment: Speci men Type: BLOOD SPECIMENOrdering Facility: [facility] Address: [address] [place] [address] Performed By: #### 2 4323-8, ####[facility] LABORATORYCLIA [id number] [place] [id number] [place] Creatinine [Mass/Vol] 0.63 mg/dL Normal 0.51-0.95 [facility] Comment on above: Order Comment: Speci men Type: BLOOD SPECIMENOrdering Facility: [facility] Address: [address] [place] [address] Result Comment: Cleopatra ents receiving either N-Acetylcysteine (NAC) or Metamizole prior to venipuncture, may have falsely depressed results. Performed By: #### 2 4323-8, ####[facility] LABORATORYCLIA [id number] [address] Creatinine and Glomerular filtration rate.predicted panel (S/P/Bld) 124 mL/min/1.73m??? Normal >=60 [facility] Comment on above: Order Comment: Speci men Type: BLOOD SPECIMENOrdering Facility: [facility] Address: [address] [place] [address] Result Comment: Janett mated Glomerular Filtration Rate (eGFR) is calculated using the 2020 CKD-EPI creatinine equation. This equation utilizes serum creatinine, sex, and age as parameters. The creatinine assay has traceable calibration to isotope dilution-mass spectrometry. Refer to KDIGO guidelines for clinical interpretation. In patients with unstable renal function, e.g. those with acute kidney injury, the eGFR may not accurately reflect actual GFR. Performed By: #### 2 4323-, ####[facility] LABORATORYCLIA [id number] [place] [id number] [place] Glucose [Mass/Vol] 313 mg/dL High 70-100 [facility] Comment on above: Order Comment: Jon jeb Type: BLOOD SPECIMENOrdering Facility: [facility] Address: [address] [place] [address] Result Comment: The [place] Diabetes Association (ADA) provides guidance for cutoff values for fasting glucose and random glucose. The ADA defines fasting as no caloric intake for at least 8 hours. Fasting plasma glucose results between 100 to 125 mg/dL indicate increased risk for diabetes (prediabetes). Fasting plasma glucose results greater than or equal to 126 mg/dL meet the criteria for diagnosis of diabetes. In the absence of unequivocal hyperglycemia, results should be confirmed by repeat testing. In a patient with classic symptoms of hyperglycemia or hyperglycemic crisis, random plasma glucose results greater than or equal to 200 mg/dL meet the criteria for diagnosis of diabetes. Reference: Standards of Medical Care in Diabetes 2016, [place] Diabetes Association. Diabetes Care. 2016.39(Suppl 1). Results may be falsely elevated after the administration of Sulfapyridine. Results may be falsely depressed after the administration of Sulfasalazine. Performed By: #### 2 4323-8, ####[facility] LABORATORYCLIA [id number] [place] [id number] [place] Potassium [Moles/Vol] 4.0 mmol/L Normal 3.5-5.1 [facility] Comment on above: Order Comment: Jon russ Type: BLOOD SPECIMENOrdering Facility: [facility] Address: [address] [place] [address] Performed By: #### 2 4323-8, ####[facility] LABORATORYCLIA [id number] [place] [id number] [place] Protein [Mass/Vol] 6.3 g/dL Normal 6.0-8.5 [facility] Comment on above: Order Comment: Jon jeb Type: BLOOD SPECIMENOrdering Facility: [facility] Address: [address] [place] [address] Performed By: #### 2 4323-8, ####[facility] LABORATORYCLIA [id number] [place] [id number] [place] Sodium [Moles/Vol] 139 mmol/L Normal 136-145 [facility] Comment on above: Order Comment: Speci men Type: BLOOD SPECIMENOrdering Facility: [facility] Address: [address] [place] [address] Performed By: #### 2 4323-8, ####[facility] LABORATORYCLIA [id number] [address] [place] Urea nitrogen [Mass/Vol] 16 mg/dL Normal 7-26 [facility] Comment on above: Order Comment: Speci men Type: BLOOD SPECIMENOrdering Facility: [facility] Address: [address] [place] [address] Performed By: #### 2 4323-8, 01180-8 ####[facility] LABORATORYCLIA [id number] [address] [place] ECG COMPLETEon 07-12-2023 ECG COMPLETE Ventricular Rate : 9 6 BPM Atrial Rate : 96 BPM P-R Interval : 132 ms QRS Duration : 78 ms Q-T Interval : 370 ms QTC Calculation(Bazett) : 468 ms Calculated P [place] : 49 degrees Calculated R [place] : 95 degrees Calculated T [place] : 68 degrees Normal sinus rhythm with sinus arrhythmia Normal ECG When compared with ECG of 31-JAN-2023 19:42, Nonspecific T wave abnormality no longer evident in Inferior leads Nonspecific T wave abnormality, improved in Anterolateral leads Confirmed by ANASTASIA CHENG MD ([id number]) on 07/13/2023 7:59:29 PM NAME : KATHLEEN VILLA PID : [id number] : 1995 Gender : Female Race : ORD : [id number] Procedure Date : Jul 12 2023 03:45:28 Edit Date : Jul 13 2023 19:59:34 Diagnosis: Normal sinus rhythm with sinus arrhythmia Normal ECG When compared with ECG of 31-JAN-2023 19:42, Nonspecific T wave abnormality no longer evident in Inferior leads Nonspecific T wave abnormality, improved in Anterolateral leads Confirmed by ANASTASIA CHENG MD ([id number]) on 07/13/2023 7:59:29 PM Test Reason : STAT Location : 0 : ED A Overread By : ANASTASIA CHENG MD Edited By : ANASTASIA CHENG MD Referred By : , Acquired by : [facility], [facility] ED NOTEon 07-12-2023 ED NOTE HNO ID: [id number] Author: Vinayak Arevalo, STIVEN Service: ? Author Type: Registered Nurse Type: ED Notes Filed: 07/12/2023 10:15 AM Note Text: Pt c/o CP after CT. Dr Cortes notified [facility] ED NOTE HNO ID: [id number] Author: Jhoana Hope RN Service: ? Author Type: Registered Nurse Type: ED Notes Filed: 07/12/2023 6:05 AM Note Text: Failed IV/ Blood draw attempts x 2 by multiple staff members. Pt states she has a port and would like it accessed. [facility] ED PROV NOTEon 07-12-2023 ED PROV NOTE HNO ID: [id number] Author: Zohreh Cortes MD Service: ? Author Type: Physician Type: ED Provider Notes Filed: 07/12/2023 3:59 PM Note Text: ED Provider Note Patient Name: Kathleen Villa : 1995 SERVICE DATE: 07/12/23 History Patient presents with: Chest Pain: 8/10 intermittent left sided CP stabbing and electric CP onset 3 days worsening tonight. C/O SOB, and nausea, pain radiates to back. Hx open heart 2015 Was brought to the emergency department via family. Chief complaint is chest pain. Patient is a 27-year-old female who has a history of Marfan syndrome and a sending aortic aneurysm with a graft. Presents with a chief complaint of 2 days worth of mid chest discomfort that radiates into her back. States at times it is dull. At times it sharp. Denies any heavy lifting or trauma. States the discomfort will take her breath away but does not really have any shortness of breath with the walking. Denies fevers or chills or night sweats. Denies any cough or congestion. Has no headaches or blurry vision. No neck pain. Denies fevers or chills or night sweats. Has no abdominal pain. Denies nausea or vomiting. No diarrhea. No constipation. No blood in her urine or stool. Denies any dysuria or urinary frequency. No vaginal bleeding or discharge. No numbness tingling or weakness in the upper or lower extremities. 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 VAMSI 11/2014 SECTION HX 02/25/2014 amairani 37 weeks PAST SURGICAL HISTORY OF Right 01/08/2020 REMOVE IMPLANTED MATERIAL POSTERIOR SEGMENT OF EYE, EXTRAOCULAR PICC LINE INSERT/CONSULT 01/09/2014 PORT Left VITRECTOMY MECHANICAL PARS PLANA 10/29/2012 PPV ([place] Vitrectomy) OD VITRECTOMY MECHANICAL PARS PLANA 05/14/2014 PPV ([place] Vitrectomy)/PCIOL OS XTRNL PT ACTIV ECG TRANSMIS W/LUBA left chest wall FAMILY HISTORY Problem Relation Age of Onset Cancer Mother 18 cervical Thyroid Mother Multiple Sclerosis Father other (mitral valve) Father Thyroid Sister Diabetes Maternal Grandmother type 2 diabetes Cataract Other maternal great grandma Glaucoma Other maternal great grandma Social History Tobacco Use Smoking status: Former Packs/day: 0.30 Years: 8.00 Additional pack years: 0.00 Total pack years: 2.40 Types: Cigarettes Quit date: 06/2019 Years since quittin.0 Smokeless tobacco: Never Vaping Use Vaping Use: Never used Substance and Sexual Activity Alcohol use: Yes Comment: very rarely Drug use: Yes Types: Marijuana Comment: medical card previous, daily Sexual activity: Yes Partners: Male control/protection: None ALLERGIES Allergen Reactions Percocet [Oxycodone* Rash, Intolerance, Itching Adhesive Tape (Lidia* Rash Indomethacin Rash Keflex [Cephalexin] Other: See Comments Makes infection worse- patient denies this on 02/25/2014 Morphine Rash, Itching Zofran [Ondansetron* Other: See Comments syncope Adhesive Rash Review of Systems HENT: Negative. Eyes: Negative. Respiratory: Positive for shortness of breath. Cardiovascular: Positive for chest pain. Gastrointestinal: Positive for nausea. Negative for vomiting. Endocrine: Negative. Genitourinary: Negative. Musculoskeletal: Negative. Skin: Negative. Allergic/Immunologic: Negative. Neurological: Negative. Hematological: Negative. Psychiatric/Behavioral : Negative. Physical Exam Vitals [07/12/23 0340] BP Pulse Temp Temp src Resp SpO2 Weight Height 116/79 (!) 94 36.9 ?C (98.5 ?F) Oral 16 97 % 77.1 kg (170 lb) 1.753 m (5' 9) Physical Exam Constitutional: Appearance: She is well-developed. HENT: Head: Normocephalic and atraumatic. Eyes: Extraocular Movements: Extraocular movements intact. Pupils: Pupils are equal, round, and reactive to light. Cardiovascular: Rate and Rhythm: Normal rate and regular rhythm. Heart sounds: Normal heart sounds. Pulmonary: Effort: Pulmonary effort is normal. Breath sounds: Normal breath sounds. Abdominal: General: Bowel sounds are normal. Palpations: Abdomen is soft. Musculoskeletal: General: Normal range of motion. Cervical back: Normal range of motion and neck supple. Right lower leg: No tenderness. No edema. Left lower leg: No tenderness. No edema. Skin: General: Skin is warm and dry. Neurological: General: No focal deficit present. Mental Status: She is alert and oriented to person, place, and time. (more content not included)... Normal [facility] HIGH SENSITIVITY TROPONIN Io n 07-12-2023 Tropinin I.cardiac panel High sensitivity method <2.5 Normal 0.0-34.0 [facility] Comment on above: Order Comment: Speci men Type: BLOOD SPECIMEN [facility] Address: [address] [place] [id number] Result Comment: This assay uses different antibodies than our current assay, and assays, even by the same bottle house cleaners supervisor may recognize different regions of the antibody and cannot be used interchangeably. Expect results of this assay to run higher than the previous assay. Performed By: #### 3 1201-7, 5195-3, 42074-2, SYPH #### [facility] CLIA [id number] [facility] [place] [address] [place] Tropinin I.cardiac panel High sensitivity method 3.3 pg/mL Normal 0.0-34.0 [facility] Comment on above: Order Comment: Speci men Type: BLOOD SPECIMEN [facility] Address: [address] [place] [address] Result Comment: This assay uses different antibodies than our current assay, and assays, even by the same bottle house cleaners supervisor may recognize different regions of the antibody and cannot be used interchangeably. Expect results of this assay to run higher than the previous assay. Performed By: #### 3 1201-7, 5195-3, 91673-1, SYPH #### [facility] CLIA [id number] [address] [place] [address] [place] Lipase SerPl-cCncon 07-12-20 23 Lipase [Catalytic activity/Vol] 23 U/L Normal 12-60 [facility] Comment on above: Order Comment: Speci men Type: BLOOD SPECIMENOrdering Facility: [facility] Address: [address] [place] [address] Performed By: #### 3 040-3 ####[facility] LABORATORYCLIA [id number] [place] [address] [place] MORPH WAM REFLEXon 3 Platelets Estimate (Bld) [#/Vol] Decreased Normal [facility] Comment on above: Order Comment: Speci men Type: BLOOD SPECIMEN [facility] Address: [address] [place] [address] Performed By: #### 3 1201-7, 5195-3, 30237-5, SYPH #### [facility] CLIA [id number] [address] [place] [address] [place] RED CELL MORPH Reviewed: unremarkable Normal [facility] Comment on above: Order Comment: Speci men Type: BLOOD SPECIMEN [facility] Address: [address] [place] [address] Performed By: #### 3 1201-7, 5195-3, 86087-5, SYPH #### [facility] CLIA [id number] [address] [place] [address] [place] Magnesium SerPl-mCncon 07-12 Magnesium [Mass/Vol] 1.8 mg/dL Normal 1.6-2.6 [facility] Comment on above: Order Comment: Speci men Type: BLOOD SPECIMEN [facility] Address: [place] [address] Performed By: #### 3 1201-7, 5195-3, 00261-2, SYPH #### [facility] CLIA [id number] [address] [place], [place] [id number] [facility] XR CHEST 2V FRONTAL/LATon XR CHEST 2V FRONTAL/LAT * * *Final Report* * * DATE OF EXAM: Jul 12 2023 4:22AM RHX [id number] - XR CHEST 2V FRONTAL/LAT / PROCEDURE REASON: Chest Pain * * * * Physician Interpretation * * * * EXAMINATION: 2 VIEW CHEST RADIOGRAPH (PA/AP AND LATERAL) PATIENT/TECHNOLOGIST PROVIDED HISTORY: CHEST PAIN TONIGHT, HX OF OPEN HEART IN 2014 CLINICAL INFORMATION ( PROVIDED BY ORDERING CLINICIAN) : Chest Pain Comparison: 01/29/2022 RESULT: Lines, tubes, and devices: LEFT subclavian Mediport tip is unchanged, projecting over the caudal aspect of the SVC. Cardiac loop recorder again noted. Lungs and pleura: No confluent infiltrate, large pleural effusion or pneumothorax. Cardiomediastinal silhouette: Within normal limits. Other: No acute bony abnormality identified. IMPRESSION: No significant acute radiographic abnormality of the chest. Promotions Coordinator: PSCB Transcribe Date/Time: Jul 12 2023 4:44A Dictated by : LETICIA HUTCHINS MD This examination was interpreted and the report reviewed and electronically signed by: LETICIA HUTCHINS MD on Jul 12 2023 4:45AM EST [id number] Normal [facility] Absolute lymphocyte countOrd ered By: Siddharth Herrera on 06-26-2023 Lymphocytes Auto (Unsp spec) [#/Vol] 0.96 10*3/uL 0.83-4.51 [facility] Basophil percentageOrdered B y: Siddharth Herrera on 06-26-2023 Basophils/100 WBC (Bld) 0.1 % 0-1 [facility] Bilirubin [Mass/Vol] 0.90 mg/dL 0.20-1.00 [facility] Comment on above: For patients on eltr ombopag therapy, use of Dimension [place] TBIL is not recommended. Chloride [Moles/Vol] 104 mmol/L 98-107 [facility] Eosinophils/100 WBC (Bld) 0.0 % 0-5 [facility] Glucose [Mass/Vol] 254 mg/dL 74-106 [facility] Comment on above: Glucose result great er than or equal to 200 mg/dLsuggests DIABETES MELLITUS per A.D.A. criteria. Neutrophils (Bld) [#/Vol] 12.6 10*3/uL 2.0-7.7 [facility] Neutrophils/100 WBC (Bld) 88.9 % 47-70 [facility] Potassium [Moles/Vol] 3.5 mmol/L 3.5-5.1 [facility] Protein [Mass/Vol] 6.8 g/dL 6.4-8.2 [facility] Sodium [Moles/Vol] 137 mmol/L 136-145 [facility] WBC (Bld) [#/Vol] 14.2 10*3/uL 4.4-11.0 [facility] Blood erythrocytes count (nu mber/volume)Ordered By: Siddharth Herrera on 06-26-2023 RBC (Bld) [#/Vol] 4.21 10*6/uL 4.2-5.4 [facility] Blood hemoglobin measurement (mass/volume)Ordered By: Siddharth Herrera on 06-26-2023 Hemoglobin (Bld) [Mass/Vol] 12.3 g/dL 12.0-15.0 [facility] Blood lymphocytes/100 leukoc ytesOrdered By: Siddharth Herrera on 06-26-2023 Lymphocytes/100 WBC (Bld) 6.8 % 19-41 [facility] Blood monocytes/100 leukocyt esOrdered By: Siddharth Herrera on 06-26-2023 Monocytes/100 WBC (Bld) 3.4 % 0-10 [facility] Blood platelet mean volumeOr dered By: Siddharth Herrera on 06-26-2023 Platelet mean volume (Bld) [Entitic vol] 12.7 fL 6.2-12.0 [facility] Determination of erythrocyte mean corpuscular volume (MCV)Ordered By: Siddharth Herrera on 06-26-2023 MCV (RBC) [Entitic vol] 90.5 fL 81-99 [facility] Hematocrit Auto (Bld) [Volum e fraction]Ordered By: [facility] on 06-26-2023 Hematocrit (Bld) [Volume fraction] 38.1 % 37-47 [facility] Laboratory - Chemistry and C hemistry - challengeOrdered By: Siddharth Sharon on 06-26-2023 ALP [Catalytic activity/Vol] 86 U/L 45-117 [facility] ALT [Catalytic activity/Vol] 69 U/L 13-56 [facility] CO2 [Moles/Vol] 21.0 mmol/L 21.0-32.0 [facility] Globulin (S) [Mass/Vol] 3.2 g/dL 2.2-4.2 [facility] Lipase [Catalytic activity/Vol] U/L 13-75 [facility] Comment on above: Please note:LIPASE r evised reference range effective 22. New Lipase methodology. Expected to produce lower values than the previous assay method. NEW Reference Range: 13 - 75 U/L Urea nitrogen/Creatinine [Mass ratio] 18.9 mg/mg 10-20 [facility] - Hematology and Cell countsOrdered By: Siddharth Sharon on 06-26-2023 Erythrocyte distribution width (RBC) [Entitic vol] 42.9 fL 35.1-43.9 [facility] Erythrocyte distribution width (RBC) [Ratio] 13.0 % 11.6-14.6 [facility] Immature granulocytes/100 WBC (Bld) 0.800 % 0.0-0.9 [facility] Comment on above: IG% - Immature Granu locytes (promyelocytes, myelocytes and metamyelocytes) > 1% indicates that a LEFT SHIFT is Present. MCH (RBC) [Entitic mass] 29.2 pg 27.0-32.0 [facility] Nucleated RBC/100 WBC (Bld) [Ratio] 0 % 0-5 [facility] MCHC Auto (RBC) [Mass/Vol]Or dered By: Siddharth Herrera on 06-26-2023 MCHC (RBC) [Mass/Vol] 32.3 g/dL 32-36 [facility] No Panel InformationOrdered By: Siddharth Herrera on 06-26-2023 Estimated Creatinine Clearance Calc 102.98 ml/min [facility] Estimated GFR (MDRD) Amer 102 mL/min >60 [facility] Comment on above: GFR Calc Estimated GFR (MDRD) Non-Af Amer 84 mL/min >60 [facility] Comment on above: Non- GFR Calc Platelets bldOrdered By: Margarita Herrera on 06-26-2023 Platelets (Bld) [#/Vol] 160 10*3/uL 150-450 [facility] Serum or plasma albumin milli urement (mass/volume)Ordered By: Siddharth Herrera on 06-26-2023 Albumin [Mass/Vol] 3.6 g/dL 3.2-5.0 [facility] Serum or plasma albumin/glob ulin mass ratioOrdered By: Siddharth Herrera on 06-26-2023 Albumin/Globulin [Mass ratio] 1.1 {ratio} 0.9-2.4 [facility] Serum or plasma calcium milli urement (mass/volume)Ordered By: Siddharth Herrera on 06-26-2023 Calcium [Mass/Vol] 8.8 mg/dL 8.5-10.1 [facility] Serum or plasma creatinine m easurement (mass/volume)Ordered By: Siddharth Herrera on 06-26-2023 Creatinine [Mass/Vol] 0.85 mg/dL 0.55-1.02 [facility] Comment on above: The validity of the calculated GFR & GFRAA in patients over 70 years has not been determined. Clinical correlation is essential. Serum or plasma urea nitroge n measurement (mass/volume)Ordered By: Siddharth Herrera on 06-26-2023 Urea nitrogen [Mass/Vol] 16 mg/dL 7-18 [facility] Thin prep Papanicolaou smear with manual screeningOrdered By: Siddharth Herrera on 06-26-2023 Thin prep Papanicolaou smear with manual screening 35 U/L 15-37 [facility] Thin prep Papanicolaou smear with manual screening 12 5-15 [facility] Absolute lymphocyte countOrd ered By: Greg Philip on 06-25-2023 Lymphocytes Auto (Unsp spec) [#/Vol] 2.12 10*3/uL 0.83-4.51 [facility] Basophil percentageOrdered B y: Greg Philip on 06-25-2023 Basophils/100 WBC (Bld) 0.4 % 0-1 [facility] Bilirubin [Mass/Vol] 0.60 mg/dL 0.20-1.00 [facility] Comment on above: For patients on eltr ombopag therapy, use of Dimension [place] TBIL is not recommended. Chloride [Moles/Vol] 109 mmol/L 98-107 [facility] Eosinophils/100 WBC (Bld) 0.4 % 0-5 [facility] Glucose [Mass/Vol] 283 mg/dL 74-106 [facility] Comment on above: Glucose result great er than or equal to 200 mg/dLsuggests DIABETES MELLITUS per A.D.A. criteria. Neutrophils (Bld) [#/Vol] 9.2 10*3/uL 2.0-7.7 [facility] Neutrophils/100 WBC (Bld) 75.9 % 47-70 [facility] Potassium [Moles/Vol] 3.8 mmol/L 3.5-5.1 [facility] Protein [Mass/Vol] 6.9 g/dL 6.4-8.2 [facility] Sodium [Moles/Vol] 140 mmol/L 136-145 [facility] WBC (Bld) [#/Vol] 12.1 10*3/uL 4.4-11.0 [facility] Beta hCG serum qualOrdered B y: Greg Philip on 06-25-2023 Beta HCG ( test) Ql Negative [facility] Blood erythrocytes count (nu mber/volume)Ordered By: Greg Philip on 06-25-2023 RBC (Bld) [#/Vol] 4.56 10*6/uL 4.2-5.4 [facility] Blood hemoglobin measurement (mass/volume)Ordered By: Greg Philip on 06-25-2023 Hemoglobin (Bld) [Mass/Vol] 13.5 g/dL 12.0-15.0 [facility] Blood lymphocytes/100 leukoc ytesOrdered By: Greg Philip on 06-25-2023 Lymphocytes/100 WBC (Bld) 17.5 % 19-41 [facility] Blood monocytes/100 leukocyt esOrdered By: Greg Philip on 06-25-2023 Monocytes/100 WBC (Bld) 5.0 % 0-10 [facility] Blood platelet mean volumeOr dered By: Greg Philip on 06-25-2023 Platelet mean volume (Bld) [Entitic vol] 12.9 fL 6.2-12.0 [facility] Determination of erythrocyte mean corpuscular volume (MCV)Ordered By: Greg Philip on 06-25-2023 MCV (RBC) [Entitic vol] 89.5 fL 81-99 [facility] Hematocrit Auto (Bld) [Volum e fraction]Ordered By: Greg Philip on 06-25-2023 Hematocrit (Bld) [Volume fraction] 40.8 % 37-47 [facility] Laboratory - Chemistry and C hemistry - challengeOrdered By: Greg Philip on 06-25-2023 ALP [Catalytic activity/Vol] 85 U/L 45-117 [facility] ALT [Catalytic activity/Vol] 70 U/L 13-56 [facility] CO2 [Moles/Vol] 22.0 mmol/L 21.0-32.0 [facility] Globulin (S) [Mass/Vol] 3.2 g/dL 2.2-4.2 [facility] Lipase [Catalytic activity/Vol] 16 U/L 13-75 [facility] Comment on above: Please note:LIPASE r evised reference range effective 22. New Lipase methodology. Expected to produce lower values than the previous assay method. NEW Reference Range: 13 - 75 U/L Urea nitrogen/Creatinine [Mass ratio] 17.3 mg/mg 10-20 [facility] - Hematology and Cell countsOrdered By: Greg Philip on 06-25-2023 Erythrocyte distribution width (RBC) [Entitic vol] 42.5 fL 35.1-43.9 [facility] Erythrocyte distribution width (RBC) [Ratio] 13.1 % 11.6-14.6 [facility] Immature granulocytes/100 WBC (Bld) 0.800 % 0.0-0.9 [facility] Comment on above: IG% - Immature Granu locytes (promyelocytes, myelocytes and metamyelocytes) > 1% indicates that a LEFT SHIFT is Present. MCH (RBC) [Entitic mass] 29.6 pg 27.0-32.0 [facility] Nucleated RBC/100 WBC (Bld) [Ratio] 0 % 0-5 [facility] MCHC Auto (RBC) [Mass/Vol]Or dered By: Greg Philip on 06-25-2023 MCHC (RBC) [Mass/Vol] 33.1 g/dL 32-36 [facility] No Panel InformationOrdered By: Greg Philip on 06-25-2023 Estimated Creatinine Clearance Calc 104.31 ml/min [facility] Estimated GFR (MDRD) Amer 108 mL/min >60 [facility] Comment on above: GFR Calc Estimated GFR (MDRD) Non-Af Amer 89 mL/min >60 [facility] Comment on above: Non- GFR Calc Platelets bldOrdered By: Allyn Philip on 06-25-2023 Platelets (Bld) [#/Vol] 180 10*3/uL 150-450 [facility] Serum or plasma albumin milli urement (mass/volume)Ordered By: Greg Philip on 06-25-2023 Albumin [Mass/Vol] 3.7 g/dL 3.2-5.0 [facility] Serum or plasma albumin/glob ulin mass ratioOrdered By: Greg Philip on 06-25-2023 Albumin/Globulin [Mass ratio] 1.2 {ratio} 0.9-2.4 [facility] Serum or plasma calcium milli urement (mass/volume)Ordered By: Greg Philip on 06-25-2023 Calcium [Mass/Vol] 9.1 mg/dL 8.5-10.1 [facility] Serum or plasma creatinine m easurement (mass/volume)Ordered By: Greg Philip on 06-25-2023 Creatinine [Mass/Vol] 0.81 mg/dL 0.55-1.02 [facility] Comment on above: The validity of the calculated GFR & GFRAA in patients over 70 years has not been determined. Clinical correlation is essential. Serum or plasma urea nitroge n measurement (mass/volume)Ordered By: Greg Philip on 06-25-2023 Urea nitrogen [Mass/Vol] 14 mg/dL 7-18 [facility] Thin prep Papanicolaou smear with manual screeningOrdered By: Greg Philip on 06-25-2023 Thin prep Papanicolaou smear with manual screening 39 U/L 15-37 [facility] Thin prep Papanicolaou smear with manual screening 9 5-15 [facility] HEMOGLOBIN A1C (POC)on 05-31 HbA1c (Bld) [Mass fraction] 7.2 % Abnormal 4.2 - 5.6 % [facility] CNPNon 05-23-2023 CNPN Telephone (FAMPOR) KATHLEEN VILLA ([id number]) 1995 F T Date Time Provider Department 05/23[facility] During your visit today, we recorded the following information about you: Eunice Mcdonald 05/23/2023 2:30 PM Signed No show letter #1 Rolando Anderson 07/26/2023 7:13 AM Signed Certified came back unclaimed Allergies As of Date: 05/23/2023 Noted Allergy Reaction PERCOCET (OXYCODONE-ACETAMINOPH EN)01/10/2014 2 - Rash 5 - Intolerance 9 - Itching ADHESIVE TAPE (ROSINS) 09/04/2013 2 - Rash INDOMETHACIN 11/20/2003 2 - Rash KEFLEX (CEPHALEXIN) 11/12/2013 14 - Other: See Comments Comments: Makes infection worse- patient denies this on 02/25/2014 MORPHINE 08/30/2013 2 - Rash 9 - Itching ZOFRAN (ONDANSETRON HCL (PF)) 01/14/2015 14 - Other: See Comments Comments: syncope ADHESIVE 11/07/2022 2 - Rash Date Reviewed: 04/05/2023 Reviewed by: Ten Mao RN - Fully Assessed Reason for Visit: No Show letter #1 [Other] Prescriptions as of 07/26/2023 - insulin lispro (HUMALOG U-100 INSULIN) 100 unit/mL injection Use in the Insulin Pump for TDD of 100 units. - Lancets (MICROLET LANCET) lancets Use as instructed to test blood sugar 4 times daily. E10.65 - blood sugar diagnostic (CONTOUR NEXT TEST STRIPS) test strip Use as instructed to check blood glucose 5 times daily. E10.65 - lubiprostone (AMITIZA) 8 mcg capsule Take 1 capsule by mouth twice daily with meals. - prochlorperazine (COMPAZINE) 10 mg tablet Take 1 tablet by mouth every 6 hours as needed. - glucose 4 gram chewable tablet Take 4 tablets by mouth as needed. - insulin glargine (LANTUS SOLOSTAR, BASAGLAR KWIKPEN) 100 unit/mL (3 mL) Inject 43 Units subcutaneously as directed in the event of Insulin pump failure. - Acetone, Urine, Test (KETONE URINE TEST) Use as directed - promethazine (PHENERGAN) 50 mg tab(s) Take 1 tablet by mouth every 8 hours as needed. - SKYRIZI 150 mg/mL injection INJECT 150 MG UNDER THE SKIN EVERY 12 WEEKS Meds Comments as of 01/09/2020: All meds reviewed before sx. Pt has aye also for after sx. CL 01/09/20 IC PNV prenata plus multivitamin Problem List As Of Date 05/23/2023 Noted Resolved Retinal detachment [H33.20] 10/26/2012 12/25/2012 SUMMARY [V999.95] 12/25/2012 Acute chest pain [R07.9] 12/25/2012 Marfan syndrome [Q87.40] 12/25/2012 DM (diabetes mellitus) (HCC) [E11.9] 12/25/2012 Gastroparesis due to DM (HCC) [E11.43, K31.84] 12/25/2012 PTSD (post-traumatic stress disorder) [F43.10] 12/25/2012 DVT prophylaxis [Z79.899] 12/25/2012 09/04/2013 DISPOSITION AND FOLLOW-UP [V999.01] 12/25/2012 09/04/2013 HTN (hypertension) [I10] Hypertension in , antepartum [O16.9] 09/19/2013 01/08/2014 GBS (group B Streptococcus carrier), +RV cultur*11/11/2013 04/16/2014 [Z34.90] 11/22/2013 04/16/2014 Diabetes mellitus in (HCC) [O24.919] 12/25/2013 04/16/2014 Diabetic ketoacidosis without coma associated w*01/08/2014 02/04/2023 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] 01/08/2014 DVT prophylaxis [Z79.899] 02/25/2014 04/16/2014 care and examination [Z39.2] 02/25/2014 04/16/2014 Near syncope [R55] 06/17/2014 Dyspnea [R06.00] 11/04/2014 Pre-op testing [Z01.818] 11/28/2014 Atelectasis [J98.11] 12/10/2014 Fluid overload [E87.70] 12/10/2014 12/15/2014 Tachycardia, unspecified [R00.0] 12/10/2014 12/12/2014 Post-operative pain [G89.18] 12/10/2014 Anxiety [F41.9] 12/10/2014 12/13/2014 Pre-existing type 1 diabetes mellitus in pregna*08/05/2015 10/03/2018 Hereditary disease in family possibly affecting*10/07/2015 Diabetes (HCC) [E11.9] 10/30/2015 Abdominal pain complicating , antepart*11/12/2015 [Z34.90] 01/28/2016 03/06/2017 Type 1 diabetes mellitus with stable proliferat*03/17/2017 Chronic idiopathic constipation [K59.04] 11/18/2021 Menstrual irregularity [N92.6] 04/18/2022 Screening for STD (sexually transmitted disease*04/18/2022 Chronic nausea [R11.0] 04/18/2022 Type 1 diabetes mellitus with hyperglycemia, wi*08/16/2022 Insulin pump status [Z96.41] 08/16/2022 Gastroparesis [K31.84] 11/23/2022 Generalized abdominal pain [R10.84] 12/08/2022 Nausea and vomiting [R11.2] 02/01/2023 Abdominal pain, suprapubic [R10.2] 02/07/2023 Letter Text Encounter Status:Closed by EUNICE MCDONALD on 05/23/23 [facility] Basophil percentageOrdered B y: Lin Johansen on 05-03-2023 Chloride [Moles/Vol] 111 mmol/L 98-107 [facility] Glucose [Mass/Vol] 230 mg/dL 74-106 [facility] Comment on above: Glucose result great er than or equal to 200 mg/dLsuggests DIABETES MELLITUS per A.D.A. criteria. Potassium [Moles/Vol] 3.7 mmol/L 3.5-5.1 [facility] Sodium [Moles/Vol] 142 mmol/L 136-145 [facility] Beta hCG serum qualOrdered B y: Marc Carl on 05-03-2023 Beta HCG ( test) Ql Negative [facility] - Chemistry and C hemistry - challengeOrdered By: Lin Johansen on 05-03-2023 CO2 [Moles/Vol] 22.0 mmol/L 21.0-32.0 [facility] Urea nitrogen/Creatinine [Mass ratio] 12.8 mg/mg 10-20 [facility] No Panel InformationOrdered By: Lin Johansen on 05-03-2023 Estimated Creatinine Clearance Calc 141.18 ml/min [facility] Estimated GFR (MDRD) Amer 145 mL/min >60 [facility] Comment on above: GFR Calc Estimated GFR (MDRD) Non-Af Amer 120 mL/min >60 [facility] Comment on above: Non- GFR Calc Serum or plasma acetone milli urement (mass/volume)Ordered By: Marc Carl on 05-03-2023 Acetone [Mass/Vol] MODERATE NEG [facility] Serum or plasma calcium milli urement (mass/volume)Ordered By: Lin Johansen on 05-03-2023 Calcium [Mass/Vol] 7.7 mg/dL 8.5-10.1 [facility] Serum or plasma creatinine m easurement (mass/volume)Ordered By: Lin Johansen on 05-03-2023 Creatinine [Mass/Vol] 0.62 mg/dL 0.55-1.02 [facility] Comment on above: The validity of the calculated GFR & GFRAA in patients over 70 years has not been determined. Clinical correlation is essential. Serum or plasma urea nitroge n measurement (mass/volume)Ordered By: Lin Johansen on 05-03-2023 Urea nitrogen [Mass/Vol] 8 mg/dL 7-18 [facility] Thin prep Papanicolaou smear with manual screeningOrdered By: Lin Johansen on 05-03-2023 Thin prep Papanicolaou smear with manual screening 9 5-15 [facility] Absolute lymphocyte countOrd ered By: Ileana Lobo on 04-29-2023 Lymphocytes Auto (Unsp spec) [#/Vol] 2.07 10*3/uL 0.83-4.51 [facility] Basophil percentageOrdered B y: Ileana Lobo on 04-29-2023 Basophils/100 WBC (Bld) 0.3 % 0-1 [facility] Chloride [Moles/Vol] 108 mmol/L 98-107 [facility] Eosinophils/100 WBC (Bld) 0.0 % 0-5 [facility] Glucose [Mass/Vol] 258 mg/dL 74-106 [facility] Comment on above: Glucose result great er than or equal to 200 mg/dLsuggests DIABETES MELLITUS per A.D.A. criteria. Neutrophils (Bld) [#/Vol] 11.5 10*3/uL 2.0-7.7 [facility] Neutrophils/100 WBC (Bld) 79.4 % 47-70 [facility] Potassium [Moles/Vol] 4.5 mmol/L 3.5-5.1 [facility] Sodium [Moles/Vol] 136 mmol/L 136-145 [facility] WBC (Bld) [#/Vol] 14.4 10*3/uL 4.4-11.0 [facility] Blood erythrocytes count (nu mber/volume)Ordered By: Ileana Lobo on 04-29-2023 RBC (Bld) [#/Vol] 3.86 10*6/uL 4.2-5.4 [facility] Blood hemoglobin measurement (mass/volume)Ordered By: Ileana Lobo on 04-29-2023 Hemoglobin (Bld) [Mass/Vol] 11.5 g/dL 12.0-15.0 [facility] Blood lymphocytes/100 leukoc ytesOrdered By: Ileana Lobo on 04-29-2023 Lymphocytes/100 WBC (Bld) 14.3 % 19-41 [facility] Blood monocytes/100 leukocyt esOrdered By: Ileana Lobo on 04-29-2023 Monocytes/100 WBC (Bld) 4.9 % 0-10 [facility] Blood platelet mean volumeOr dered By: Ileana Lobo on 04-29-2023 Platelet mean volume (Bld) [Entitic vol] 11.6 fL 6.2-12.0 [facility] Determination of erythrocyte mean corpuscular volume (MCV)Ordered By: Ileana Lobo on 04-29-2023 MCV (RBC) [Entitic vol] 91.2 fL 81-99 [facility] Glucose Glucometer (dC) [M ass/Vol]Ordered By: Ileana Lobo on 04-29-2023 Glucose [Mass/Vol] 210 mg/dL 74-106 [facility] Comment on above: MANAGEMENT OF PATIEN T CARE PER NURSING PROTOCOL Hematocrit Auto (Bld) [Volum e fraction]Ordered By: Ileana Lobo on 04-29-2023 Hematocrit (Bld) [Volume fraction] 35.2 % 37-47 [facility] - Chemistry and C hemistry - challengeOrdered By: Ileana Lobo on 04-29-2023 CO2 [Moles/Vol] 19.0 mmol/L 21.0-32.0 [facility] Urea nitrogen/Creatinine [Mass ratio] 11.6 mg/mg 10-20 [facility] - Hematology and Cell countsOrdered By: Ileana Lobo on 04-29-2023 Erythrocyte distribution width (RBC) [Entitic vol] 47.9 fL 35.1-43.9 [facility] Erythrocyte distribution width (RBC) [Ratio] 14.3 % 11.6-14.6 [facility] Immature granulocytes/100 WBC (Bld) 1.100 % 0.0-0.9 [facility] Comment on above: IG% - Immature Granu locytes (promyelocytes, myelocytes and metamyelocytes) > 1% indicates that a LEFT SHIFT is Present. MCH (RBC) [Entitic mass] 29.8 pg 27.0-32.0 [facility] Nucleated RBC/100 WBC (Bld) [Ratio] 0 % 0-5 [facility] MCHC Auto (RBC) [Mass/Vol]Or dered By: Ileana Lobo on 04-29-2023 MCHC (RBC) [Mass/Vol] 32.7 g/dL 32-36 [facility] No Panel InformationOrdered By: Ileana Lobo on 04-29-2023 Estimated Creatinine Clearance Calc 112.22 ml/min [facility] Estimated GFR (MDRD) Amer 113 mL/min >60 [facility] Comment on above: GFR Calc Estimated GFR (MDRD) Non-Af Amer 93 mL/min >60 [facility] Comment on above: Non- GFR Calc Platelets bldOrdered By: Jes Lobo on 04-29-2023 Platelets (Bld) [#/Vol] 143 10*3/uL 150-450 [facility] Serum or plasma calcium milli urement (mass/volume)Ordered By: Ileana Lobo on 04-29-2023 Calcium [Mass/Vol] 8.0 mg/dL 8.5-10.1 [facility] Serum or plasma creatinine m easurement (mass/volume)Ordered By: Ileana Lobo on 04-29-2023 Creatinine [Mass/Vol] 0.78 mg/dL 0.55-1.02 [facility] Comment on above: The validity of the calculated GFR & GFRAA in patients over 70 years has not been determined. Clinical correlation is essential. Serum or plasma urea nitroge n measurement (mass/volume)Ordered By: Ileana Lobo on 04-29-2023 Urea nitrogen [Mass/Vol] 9 mg/dL 7-18 [facility] Thin prep Papanicolaou smear with manual screeningOrdered By: Ileana Lobo on 04-29-2023 Thin prep Papanicolaou smear with manual screening 9 5-15 [facility] Assessment of wrist artery p atency prior to arterial punctureOrdered By: David Smith on 04-28-2023 Arterial patency Wrist artery --pre arterial puncture Positive [facility] Base excessOrdered By: Demond Smith on 04-28-2023 Base excess Calc (BldV) [Moles/Vol] -6 mmol/L -2-2 [facility] Basophil percentageOrdered B y: Ileana Lobo on 04-28-2023 Basophil percentage 0-5 SEEN /hpf 0-5 [facility] Basophil percentageOrdered B y: David Smith on 04-28-2023 Basophil percentage 18.2 mmol/L 22-26 [facility] Basophils/100 WBC (Bld) 99 % 95-99 [facility] Bilirubin Test strip Ql (U)O rdered By: Ileana Lobo on 04-28-2023 Bilirubin Ql (U) Negative Negative [facility] CO2 (BldA) [Partial pressure ]Ordered By: David Smith on 04-28-2023 CO2 (Bld) [Partial pressure] 26.7 mm[Hg] 35-45 [facility] Culture, urineOrdered By: Jocelyne Lobo on 04-28-2023 Bacteria identified Cx Nom (U) Positive [facility] Bacteria identified Cx Nom (U) Positive [facility] Ketones Test strip Ql (U)Ord ered By: Ileana Lobo on 04-28-2023 Ketones Ql (U) 150 mg/dl Negative [facility] Comment on above: CRITICAL VALUE *HCRI TICAL VALUE VERIFIED. CALLED TO [id number]/01/23 1736 Emily Felix.RESULTS READ BACK BY SAME . Laboratory - Chemistry and C hemistry - challengeOrdered By: Ileana Lobo on 04-28-2023 Magnesium [Mass/Vol] 2.1 mg/dL 1.6-2.6 [facility] Laboratory - Drug toxicology Ordered By: Ileana Lobo on 04-28-2023 Amphetamines Ql (U) Negative <1000 ng/mL [facility] Benzodiazepines Ql (U) Negative < 200 ng/mL W [facility] Cannabinoids Screen Ql (U) Positive < 50 ng/mL [facility] Cocaine Ql (U) Negative < 300 ng/mL [facility] Opiates Ql (U) Negative < 300 ng/mL [facility] Mucus LM Ql (Urine sed)Order ed By: Ileana Lobo on 04-28-2023 Mucus Ql (Urine sed) 0 SEEN /hpf [facility] Nitrite Test strip Ql (U)Ord ered By: Ileana Lobo on 04-28-2023 Nitrite Ql (U) Negative Negative [facility] No Panel InformationOrdered By: Ileana Lobo on 04-28-2023 MDMA (Ecstasy) Screen Negative < 500 ng/mL [facility] Urine Barbiturates Screen Negative < 200 ng/mL [facility] Urine Drug Screen Comment [facility] Comment on above: CONFIRMATORY TESTING FOR ALL POSITIVE URINE DRUG SCREENRESULTS WILL ONLY BE SENT OUT UPON PHYSICIAN ORDER. VISTA Urine Drug Screen methods provide only preliminaryanalytical test results. A more specific alternate chemicalmethod must be used in order to obtain a confirmedanalytical result. Gas chromatography/mass spectrometery(GC/MS) is the preferred confirmatory method. Clinicalconsideration and professional judgement should be appliedto any drug of abuse test result, particularly whenpreliminary positive results are used. URINE TCA TESTING MUST BE ORDERED SEPARATELY. USE TESTMNEMONIC: [facility] Urine Methadone Screen Negative < 300 ng/mL W [facility] No Panel InformationOrdered By: David Smith on 04-28-2023 Blood Gas Sample Site R Radial [facility] Blood Gas Specimen Type ART [facility] Blood Gas Total CO2 19 mmol/L [facility] Oxygen (BldA) [Partial press ure]Ordered By: David Smith on 04-28-2023 Oxygen (Bld) [Partial pressure] 107 mmHG 75-100 [facility] Protein Test strip Ql (U)Ord ered By: Ileana Lobo on 04-28-2023 Protein Ql (U) Negative Negative [facility] Serum or plasma acetone milli urement (mass/volume)Ordered By: Vincenzo Castañeda on 04-28-2023 Acetone [Mass/Vol] SMALL NEG [facility] Serum procalcitonin measurem entOrdered By: Ileana Lobo on 04-28-2023 Procalcitonin [Mass/Vol] 0.08 ng/mL 0.00-0.09 [facility] Comment on above: A procalcitonin (PCT ) level above 2.0 ng/mL on the first day of ICU admission is associated with a high risk for progression to severe sepsis and/or septic shock. A PCT level below 0.5 ng/mL on the first day of ICU admission is associated with a low risk for progression to severe and/or septic shock. Note: Concentrations <0.5 ng/mL do not exclude an infection on account of localized infections (without systemic signs) which can be associated with such low concentrations, or a systemic infection in its initial stages (<6 hours). Furthermore, increased procalcitonin can occur without infection. PCT concentrations between 0.5 and 2.0 ng/mL should be interpreted taking into account the patient's history. It is recommended to retest PCT within 6-24 hours if any concentrations <2 ng/mL are obtained. Squamous epithelial cells de tection in urine sediment by light microscopyOrdered By: Ileana Lobo on 04-28-2023 Epithelial cells.squamous LM Ql (Urine sed) 0 SEEN /hpf 5-10 [facility] Urine blood detectionOrdered By: Ileana Lobo on 04-28-2023 RBC Ql (U) Negative Negative [facility] RBC Ql (U) 0 SEEN /hpf 0-5 [facility] Urine clarityOrdered By: Jes Lobo on 04-28-2023 Clarity (U) Clear Clear [facility] Urine color determinationOrd ered By: Ileana Lobo on 04-28-2023 Color (U) Straw Yellow [facility] Urine glucose detectionOrder ed By: Ileana Lobo on 04-28-2023 Glucose Ql (U) 100 mg/dl Normal [facility] Urine leukocyte esterase det ection by dipstickOrdered By: Ileana Lobo on 04-28-2023 Leukocyte esterase Test strip Ql (U) 25 /ul Negative [facility] Urine pHOrdered By: Ileana mayorga on 04-28-2023 pH (U) 5.0 [pH] 5.0 - 8.0 [facility] Urine phencyclidine (PCP) de tectionOrdered By: Ileana Lobo on 04-28-2023 Phencyclidine Ql (U) Negative < 25 ng/mL [facility] Urine sediment bacteria coun t by microscopy (number/high power field)Ordered By: Ileana Lobo on 04-28-2023 Bacteria LM.HPF (Urine sed) [#/Area] 0 /[HPF] None Seen [facility] Urine specific gravity measu rementOrdered By: Ileana Lobo on 04-28-2023 Specific gravity (U) [Rel density] 1.010 1.002-1.030 [facility] Urobilinogen Auto test strip Ql (U)Ordered By: Ileana Lobo on 04-28-2023 Urobilinogen Ql (U) Normal mg/dl Normal [facility] pH measurementOrdered By: Gloria Smith on 04-28-2023 pH (Unsp spec) 7.44 [pH] 7.35-7.45 [facility] Absolute lymphocyte countOrd ered By: Lin Johansen on 04-27-2023 Lymphocytes Auto (Unsp spec) [#/Vol] 0.67 10*3/uL 0.83-4.51 [facility] Basophil percentageOrdered B y: Lin Johansen on 04-27-2023 Basophils/100 WBC (Bld) 0.2 % 0-1 [facility] Bilirubin [Mass/Vol] 1.00 mg/dL 0.20-1.00 [facility] Comment on above: For patients on eltr ombopag therapy, use of [employer] TBIL is not recommended. Chloride [Moles/Vol] 102 mmol/L 98-107 [facility] Eosinophils/100 WBC (Bld) 0.0 % 0-5 [facility] Glucose [Mass/Vol] 313 mg/dL 74-106 [facility] Comment on above: Glucose result great er than or equal to 200 mg/dLsuggests DIABETES MELLITUS per A.D.A. criteria. Neutrophils (Bld) [#/Vol] 19.6 10*3/uL 2.0-7.7 [facility] Neutrophils/100 WBC (Bld) 93.9 % 47-70 [facility] Potassium [Moles/Vol] 5.1 mmol/L 3.5-5.1 [facility] Protein [Mass/Vol] 7.5 g/dL 6.4-8.2 [facility] Sodium [Moles/Vol] 130 mmol/L 136-145 [facility] WBC (Bld) [#/Vol] 20.9 10*3/uL 4.4-11.0 [facility] Blood erythrocytes count (nu mber/volume)Ordered By: Lin Johansen on 04-27-2023 RBC (Bld) [#/Vol] 4.65 10*6/uL 4.2-5.4 [facility] Blood hemoglobin measurement (mass/volume)Ordered By: Lin Johansen on 04-27-2023 Hemoglobin (Bld) [Mass/Vol] 13.5 g/dL 12.0-15.0 [facility] Blood lymphocytes/100 leukoc ytesOrdered By: Lin Johansen on 04-27-2023 Lymphocytes/100 WBC (Bld) 3.2 % 19-41 [facility] Blood monocytes/100 leukocyt esOrdered By: Lin Johansen on 04-27-2023 Monocytes/100 WBC (Bld) 0.9 % 0-10 [facility] Blood platelet mean volumeOr dered By: Lin Johansen on 04-27-2023 Platelet mean volume (Bld) [Entitic vol] 12.5 fL 6.2-12.0 [facility] Determination of erythrocyte mean corpuscular volume (MCV)Ordered By: Lin Johansen on 04-27-2023 MCV (RBC) [Entitic vol] 90.3 fL 81-99 [facility] Direct bilirubinOrdered By: Lin Johansen on 04-27-2023 Bilirubin.direct [Mass/Vol] 0.30 mg/dL 0.00-0.30 [facility] Glucose Glucometer (dC) [M ass/Vol]Ordered By: Lin Johansen on 04-27-2023 Glucose [Mass/Vol] 206 mg/dL 74-106 [facility] Comment on above: MANAGEMENT OF PATIEN T CARE PER NURSING PROTOCOL Hematocrit Auto (Bld) [Volum e fraction]Ordered By: Lin Johansen on 04-27-2023 Hematocrit (Bld) [Volume fraction] 42.0 % 37-47 [facility] Laboratory - Chemistry and C hemistry - challengeOrdered By: Lin Johansen on 04-27-2023 ALP [Catalytic activity/Vol] 85 U/L 45-117 [facility] ALT [Catalytic activity/Vol] 22 U/L 13-56 [facility] CO2 [Moles/Vol] 13.0 mmol/L 21.0-32.0 [facility] Globulin (S) [Mass/Vol] 3.5 g/dL 2.2-4.2 [facility] Lipase [Catalytic activity/Vol] 10 U/L 13-75 [facility] Comment on above: Please note:LIPASE r evised reference range effective 22. New Lipase methodology. Expected to produce lower values than the previous assay method. NEW Reference Range: 13 - 75 U/L Urea nitrogen/Creatinine [Mass ratio] 13.9 mg/mg 10-20 [facility] - Hematology and Cell countsOrdered By: Lin Johansen on 04-27-2023 Erythrocyte distribution width (RBC) [Entitic vol] 46.5 fL 35.1-43.9 [facility] Erythrocyte distribution width (RBC) [Ratio] 14.2 % 11.6-14.6 [facility] Immature granulocytes/100 WBC (Bld) 1.800 % 0.0-0.9 [facility] Comment on above: IG% - Immature Granu locytes (promyelocytes, myelocytes and metamyelocytes) > 1% indicates that a LEFT SHIFT is Present. MCH (RBC) [Entitic mass] 29.0 pg 27.0-32.0 [facility] Nucleated RBC/100 WBC (Bld) [Ratio] 0 % 0-5 [facility] MCHC Auto (RBC) [Mass/Vol]Or dered By: Lin Johansen on 04-27-2023 MCHC (RBC) [Mass/Vol] 32.1 g/dL 32-36 [facility] No Panel InformationOrdered By: Lin Johansen on 04-27-2023 Estimated Creatinine Clearance Calc 78.23 ml/min [facility] Estimated GFR (MDRD) Amer 77 mL/min >60 [facility] [facility] Comment on above: GFR Calc Estimated GFR (MDRD) Non-Af Amer 64 mL/min >60 [facility] Comment on above: Non- GFR Calc Platelets bldOrdered By: Vicenta Johansen on 04-27-2023 Platelets (Bld) [#/Vol] 158 10*3/uL 150-450 [facility] Serum or plasma albumin milli urement (mass/volume)Ordered By: Lin Johansen on 04-27-2023 Albumin [Mass/Vol] 4.0 g/dL 3.2-5.0 [facility] Serum or plasma calcium milli urement (mass/volume)Ordered By: Lin Johansen on 04-27-2023 Calcium [Mass/Vol] 9.4 mg/dL 8.5-10.1 [facility] Serum or plasma creatinine m easurement (mass/volume)Ordered By: Lin Johansen on 04-27-2023 Creatinine [Mass/Vol] 1.08 mg/dL 0.55-1.02 [facility] Comment on above: The validity of the calculated GFR & GFRAA in patients over 70 years has not been determined. Clinical correlation is essential. Serum or plasma urea nitroge n measurement (mass/volume)Ordered By: Lin Johansen on 04-27-2023 Urea nitrogen [Mass/Vol] 15 mg/dL 7-18 [facility] Thin prep Papanicolaou smear with manual screeningOrdered By: Lin Johansen on 04-27-2023 Thin prep Papanicolaou smear with manual screening 10 U/L 15-37 [facility] Thin prep Papanicolaou smear with manual screening 15 5-15 [facility] Absolute lymphocyte countOrd ered By: Loki Soria on 04-26-2023 Lymphocytes Auto (Unsp spec) [#/Vol] 1.87 10*3/uL 0.83-4.51 [facility] Basophil percentageOrdered B y: Loki Soria on 04-26-2023 Basophils/100 WBC (Bld) 0.3 % 0-1 [facility] Chloride [Moles/Vol] 106 mmol/L 98-107 [facility] Eosinophils/100 WBC (Bld) 0.4 % 0-5 [facility] Glucose [Mass/Vol] 108 mg/dL 74-106 [facility] Comment on above: Fasting Glucose resu lt from 100 to 125 mg/dL suggests IMPAIRED HOMEOSTASIS per A.D.A. criteria. Neutrophils (Bld) [#/Vol] 10.8 10*3/uL 2.0-7.7 [facility] Neutrophils/100 WBC (Bld) 78.6 % 47-70 [facility] Potassium [Moles/Vol] 3.9 mmol/L 3.5-5.1 [facility] Sodium [Moles/Vol] 135 mmol/L 136-145 [facility] WBC (Bld) [#/Vol] 13.8 10*3/uL 4.4-11.0 [facility] Blood erythrocytes count (nu mber/volume)Ordered By: Loki Soria on 04-26-2023 RBC (Bld) [#/Vol] 4.80 10*6/uL 4.2-5.4 [facility] Blood hemoglobin measurement (mass/volume)Ordered By: Loki Soria on 04-26-2023 Hemoglobin (Bld) [Mass/Vol] 14.1 g/dL 12.0-15.0 [facility] Blood lymphocytes/100 leukoc ytesOrdered By: Loki Soria on 04-26-2023 Lymphocytes/100 WBC (Bld) 13.6 % 19-41 [facility] Blood monocytes/100 leukocyt esOrdered By: Loki Soria on 04-26-2023 Monocytes/100 WBC (Bld) 6.2 % 0-10 [facility] Blood platelet mean volumeOr dered By: Loki Soria on 04-26-2023 Platelet mean volume (Bld) [Entitic vol] 11.5 fL 6.2-12.0 [facility] Determination of erythrocyte mean corpuscular volume (MCV)Ordered By: Loki Soria on 04-26-2023 MCV (RBC) [Entitic vol] 88.8 fL 81-99 [facility] Hematocrit Auto (Bld) [Volum e fraction]Ordered By: Loki Soria on 04-26-2023 Hematocrit (Bld) [Volume fraction] 42.6 % 37-47 [facility] Laboratory - Chemistry and C hemistry - challengeOrdered By: Loki Soria on 04-26-2023 CO2 [Moles/Vol] 20.0 mmol/L 21.0-32.0 [facility] Urea nitrogen/Creatinine [Mass ratio] 10.5 mg/mg 10-20 [facility] Laboratory - Hematology and Cell countsOrdered By: Loki Soria on 04-26-2023 Erythrocyte distribution width (RBC) [Entitic vol] 45.3 fL 35.1-43.9 [facility] Erythrocyte distribution width (RBC) [Ratio] 13.9 % 11.6-14.6 [facility] Immature granulocytes/100 WBC (Bld) 0.900 % 0.0-0.9 [facility] Comment on above: IG% - Immature Granu locytes (promyelocytes, myelocytes and metamyelocytes) > 1% indicates that a LEFT SHIFT is Present. MCH (RBC) [Entitic mass] 29.4 pg 27.0-32.0 [facility] Nucleated RBC/100 WBC (Bld) [Ratio] 0 % 0-5 [facility] MCHC Auto (RBC) [Mass/Vol]Or dered By: Loki Soria on 04-26-2023 MCHC (RBC) [Mass/Vol] 33.1 g/dL 32-36 [facility] No Panel InformationOrdered By: Loki Soria on 04-26-2023 Estimated Creatinine Clearance Calc 91.18 ml/min [facility] Estimated GFR (MDRD) Amer 89 mL/min >60 [facility] Comment on above: GFR Calc Estimated GFR (MDRD) Non-Af Amer 74 mL/min >60 [facility] Comment on above: Non- GFR Calc Thyroid Stimulating Hormone (TSH) 3.85 uIU/mL 0.358-3.74 [facility] Troponin I High Sensitivity 4 pg/mL 3.0-54.0 [facility] Comment on above: Please Note: New Ivone t Units and Gender Specific Reference Ranges. For more information see Policy Stat Procedure [facility] High Sensitivity Troponin (TNIH) and attachments. Platelets bldOrdered By: Ashley Soria on 04-26-2023 Platelets (Bld) [#/Vol] 158 10*3/uL 150-450 [facility] Serum or plasma calcium milli urement (mass/volume)Ordered By: Loki Soria on 04-26-2023 Calcium [Mass/Vol] 9.2 mg/dL 8.5-10.1 [facility] Serum or plasma creatinine m easurement (mass/volume)Ordered By: Loki Soria on 04-26-2023 Creatinine [Mass/Vol] 0.96 mg/dL 0.55-1.02 [facility] Comment on above: The validity of the calculated GFR & GFRAA in patients over 70 years has not been determined. Clinical correlation is essential. Serum or plasma urea nitroge n measurement (mass/volume)Ordered By: Loki Soria on 04-26-2023 Urea nitrogen [Mass/Vol] 10 mg/dL 7-18 [facility] Thin prep Papanicolaou smear with manual screeningOrdered By: Loki Soria on 04-26-2023 Thin prep Papanicolaou smear with manual screening 9 5-15 [facility] Absolute lymphocyte countOrd ered By: Greg Leslieradha on 04-23-2023 Lymphocytes Auto (Unsp spec) [#/Vol] 1.93 10*3/uL 0.83-4.51 [facility] Basophil percentageOrdered B y: Greg Philip on 04-23-2023 Basophil percentage 5-10 SEEN /hpf 0-5 W [facility] Basophils/100 WBC (Bld) 0.3 % 0-1 [facility] Bilirubin [Mass/Vol] 0.30 mg/dL 0.20-1.00 [facility] Comment on above: For patients on eltr ombopag therapy, use of Dimension [facility] TBIL is not recommended. Chloride [Moles/Vol] 114 mmol/L 98-107 [facility] Eosinophils/100 WBC (Bld) 0.6 % 0-5 [facility] Glucose [Mass/Vol] 60 mg/dL 74-106 [facility] Neutrophils (Bld) [#/Vol] 10.3 10*3/uL 2.0-7.7 [facility] Neutrophils/100 WBC (Bld) 77.2 % 47-70 [facility] Potassium [Moles/Vol] 3.3 mmol/L 3.5-5.1 [facility] Protein [Mass/Vol] 6.3 g/dL 6.4-8.2 [facility] Sodium [Moles/Vol] 143 mmol/L 136-145 [facility] WBC (Bld) [#/Vol] 13.4 10*3/uL 4.4-11.0 [facility] Beta hCG serum qualOrdered B y: Greg Philip on 04-23-2023 Beta HCG ( test) Ql Negative [facility] Bilirubin Test strip Ql (U)O rdered By: Greg Philip on 04-23-2023 Bilirubin Ql (U) Negative Negative [facility] Blood erythrocytes count (nu mber/volume)Ordered By: Greg Philip on 04-23-2023 RBC (Bld) [#/Vol] 4.34 10*6/uL 4.2-5.4 [facility] Blood hemoglobin measurement (mass/volume)Ordered By: Greg Philip on 04-23-2023 Hemoglobin (Bld) [Mass/Vol] 13.0 g/dL 12.0-15.0 [facility] Blood lymphocytes/100 leukoc ytesOrdered By: Greg Philip on 04-23-2023 Lymphocytes/100 WBC (Bld) 14.5 % 19-41 [facility] Blood monocytes/100 leukocyt esOrdered By: Greg Philip on 04-23-2023 Monocytes/100 WBC (Bld) 6.7 % 0-10 [facility] Blood platelet mean volumeOr dered By: Greg Philip on 04-23-2023 Platelet mean volume (Bld) [Entitic vol] 12.7 fL 6.2-12.0 [facility] Determination of erythrocyte mean corpuscular volume (MCV)Ordered By: Greg Philip on 04-23-2023 MCV (RBC) [Entitic vol] 91.7 fL 81-99 [facility] Glucose Glucometer (dC) [M ass/Vol]Ordered By: Greg Philip on 04-23-2023 Glucose [Mass/Vol] 108 mg/dL 74-106 [facility] Comment on above: MANAGEMENT OF PATIEN T CARE PER NURSING PROTOCOL Hematocrit Auto (Bld) [Volum e fraction]Ordered By: Greg Philip on 04-23-2023 Hematocrit (Bld) [Volume fraction] 39.8 % 37-47 [facility] INR in Blood by Coagulation assayOrdered By: Greg Philip on 04-23-2023 INR Coag (Bld) [Relative time] 1.1 {INR} [facility] Ketones Test strip Ql (U)Ord ered By: Greg Philip on 04-23-2023 Ketones Ql (U) Negative Negative [facility] Laboratory - Chemistry and C hemistry - challengeOrdered By: Greg Philip on 04-23-2023 ALP [Catalytic activity/Vol] 66 U/L 45-117 [facility] ALT [Catalytic activity/Vol] 31 U/L 13-56 [facility] CO2 [Moles/Vol] 25.0 mmol/L 21.0-32.0 [facility] Globulin (S) [Mass/Vol] 2.9 g/dL 2.2-4.2 [facility] Lipase [Catalytic activity/Vol] 19 U/L 13-75 [facility] Comment on above: Please note:LIPASE r evised reference range effective 22. New Lipase methodology. Expected to produce lower values than the previous assay method. NEW Reference Range: 13 - 75 U/L Urea nitrogen/Creatinine [Mass ratio] 23.1 mg/mg 10-20 [facility] Laboratory - CoagulationOrde red By: Greg Philip on 04-23-2023 aPTT Coag (Bld) [Time] 34.5 s 24.1-36.2 [facility] PT Coag (PPP) [Time] 14.4 s 11.7-14.9 [facility] Laboratory - Hematology and Cell countsOrdered By: Greg Philip on 04-23-2023 Erythrocyte distribution width (RBC) [Entitic vol] 47.8 fL 35.1-43.9 [facility] Erythrocyte distribution width (RBC) [Ratio] 14.1 % 11.6-14.6 [facility] Immature granulocytes/100 WBC (Bld) 0.700 % 0.0-0.9 [facility] Comment on above: IG% - Immature Granu locytes (promyelocytes, myelocytes and metamyelocytes) > 1% indicates that a LEFT SHIFT is Present. MCH (RBC) [Entitic mass] 30.0 pg 27.0-32.0 [facility] Nucleated RBC/100 WBC (Bld) [Ratio] 0 % 0-5 [facility] MCHC Auto (RBC) [Mass/Vol]Or dered By: Greg Philip on 04-23-2023 MCHC (RBC) [Mass/Vol] 32.7 g/dL 32-36 [facility] Mucus LM Ql (Urine sed)Order ed By: Greg Philip on 04-23-2023 Mucus Ql (Urine sed) 0 SEEN /hpf [facility] Nitrite Test strip Ql (U)Ord ered By: Greg Philip on 04-23-2023 Nitrite Ql (U) Negative Negative [facility] No Panel InformationOrdered By: Greg Philip on 04-23-2023 Estimated Creatinine Clearance Calc 156.31 ml/min [facility] Estimated GFR (MDRD) Amer 164 mL/min >60 [facility] Comment on above: GFR Calc Estimated GFR (MDRD) Non-Af Amer 135 mL/min >60 [facility] Comment on above: Non- GFR Calc Troponin I High Sensitivity 6 pg/mL 3.0-54.0 [facility] Comment on above: Please Note: New Ivone t Units and Gender Specific Reference Ranges. For more information see Policy Stat Procedure [facility] High Sensitivity Troponin (TNIH) and attachments. Platelets bldOrdered By: Allyn Philip on 04-23-2023 Platelets (Bld) [#/Vol] 149 10*3/uL 150-450 [facility] Protein Test strip Ql (U)Ord ered By: Greg Philip on 04-23-2023 Protein Ql (U) Negative Negative [facility] Serum or plasma acetone milli urement (mass/volume)Ordered By: Greg Philip on 04-23-2023 Acetone [Mass/Vol] Negative NEG [facility] Serum or plasma albumin milli urement (mass/volume)Ordered By: Greg Philip on 04-23-2023 Albumin [Mass/Vol] 3.4 g/dL 3.2-5.0 [facility] Serum or plasma albumin/glob ulin mass ratioOrdered By: Greg Philip on 04-23-2023 Albumin/Globulin [Mass ratio] 1.2 {ratio} 0.9-2.4 [facility] Serum or plasma calcium milli urement (mass/volume)Ordered By: Greg Philip on 04-23-2023 Calcium [Mass/Vol] 8.6 mg/dL 8.5-10.1 [facility] Serum or plasma creatinine m easurement (mass/volume)Ordered By: Greg Philip on 04-23-2023 Creatinine [Mass/Vol] 0.56 mg/dL 0.55-1.02 [facility] Comment on above: The validity of the calculated GFR & GFRAA in patients over 70 years has not been determined. Clinical correlation is essential. Serum or plasma urea nitroge n measurement (mass/volume)Ordered By: Greg Philip on 04-23-2023 Urea nitrogen [Mass/Vol] 13 mg/dL 7-18 [facility] Squamous epithelial cells de tection in urine sediment by light microscopyOrdered By: Greg Philip on 04-23-2023 Epithelial cells.squamous LM Ql (Urine sed) 0 SEEN /hpf 5-10 [facility] Thin prep Papanicolaou smear with manual screeningOrdered By: Greg Philip on 04-23-2023 Thin prep Papanicolaou smear with manual screening 13 U/L 15-37 [facility] Thin prep Papanicolaou smear with manual screening 4 5-15 [facility] Urine blood detectionOrdered By: Greg Philip on 04-23-2023 RBC Ql (U) Negative Negative [facility] RBC Ql (U) 0 SEEN /hpf 0-5 [facility] Urine clarityOrdered By: Allyn Philip on 04-23-2023 Clarity (U) Clear Clear [facility] Urine color determinationOrd ered By: Greg Philip on 04-23-2023 Color (U) Yellow Yellow [facility] Urine glucose detectionOrder ed By: Greg Philip on 04-23-2023 Glucose Ql (U) 50 mg/dl Normal [facility] Urine leukocyte esterase det ection by dipstickOrdered By: Greg Philip on 04-23-2023 Leukocyte esterase Test strip Ql (U) 500 /ul Negative [facility] Urine pHOrdered By: Greg sun on 04-23-2023 pH (U) 8.0 [pH] 5.0 - 8.0 [facility] Urine sediment bacteria coun t by microscopy (number/high power field)Ordered By: Greg Philip on 04-23-2023 Bacteria LM.HPF (Urine sed) [#/Area] 1 /[HPF] None Seen [facility] Urine specific gravity measu rementOrdered By: Greg Philip on 04-23-2023 Specific gravity (U) [Rel density] 1.015 1.002-1.030 [facility] Urobilinogen Auto test strip Ql (U)Ordered By: Greg Philip on 04-23-2023 Urobilinogen Ql (U) Normal mg/dl Normal [facility] CBC W Auto Differential pane l (Bld)on 04-06-2023 Basophils (Bld) [#/Vol] 0.05 10*3/uL Normal <0.11 [facility] Comment on above: Order Comment: Speci men Type: BLOOD SPECIMEN Ordering Facility: [facility] Address: [address] [place] [address] Performed By: #### 3 1201-7, 5195-3, 70426-2, SYPH #### [facility] CLIA [id number] [address] [place] [address] [place] Basophils/100 WBC (Bld) 0.4 % Normal [facility] Comment on above: Order Comment: Speci men Type: BLOOD SPECIMEN Ordering Facility: [facility] Address: [address] [place] [address] Performed By: #### 3 1201-7, 5194-3, 53037-0, SYPH #### [facility] CLIA [id number] [address] [place] [address] [place] Differential cell count method Nom (Bld) Auto Normal [facility] Comment on above: Order Comment: Speci men Type: BLOOD SPECIMEN Ordering Facility: [facility] Address: [address] [place] [address] Performed By: #### 3 1201-7, 5-3, 23706-4, SYPH #### [facility] CLIA [id number] [address] [place] [address] [place] Eosinophils (Bld) [#/Vol] 0.03 10*3/uL Normal <0.46 [facility] Comment on above: Order Comment: Speci men Type: BLOOD SPECIMEN Ordering Facility: [facility] Address: [address] [place] [address] Performed By: #### 3 1201-7, 5195-3, 88098-5, SYPH #### [facility] CLIA [id number] [address] [place] [address] [place] Eosinophils/100 WBC (Bld) 0.2 % Normal [facility] Comment on above: Order Comment: Speci men Type: BLOOD SPECIMEN Ordering Facility: [facility] Address: [place] [address] Performed By: #### 3 1201-7, 5-3, 42368-7, SYPH #### [facility] CLIA [id number] [address] [place] [address] [place] Erythrocyte distribution width (RBC) [Ratio] 13.9 % Normal 11.5-15.0 [facility] Comment on above: Order Comment: Speci men Type: BLOOD SPECIMEN Ordering Facility: [facility] Address: [address] [place] [address] Performed By: #### 3 1201-7, 5-3, 93384-9, SYPH #### [facility] CLIA [id number] [address] [place] [address] [place] Hematocrit (Bld) [Volume fraction] 43.8 % Normal 36.0-46.0 [facility] Comment on above: Order Comment: Speci men Type: BLOOD SPECIMEN Ordering Facility: [facility] Address: [address] [place] [address] Performed By: #### 3 1201-7, 5-3, 31001-1, SYPH #### [facility] CLIA [id number] [address] [place] [address] [place] Hemoglobin (Bld) [Mass/Vol] 14.4 g/dL Normal 11.5-15.5 [facility] Comment on above: Order Comment: Speci men Type: BLOOD SPECIMEN Ordering Facility: [facility] Address: [address] [place] [address] Performed By: #### 3 1201-7, 5-3, 78929-4, SYPH #### [facility] CLIA [id number] [address] [place] [address] [place] Immature granulocytes (Bld) [#/Vol] 0.11 10*3/uL High <0.10 [facility] Comment on above: Order Comment: Speci men Type: BLOOD SPECIMEN Ordering Facility: [facility] Address: [address] [place] [address] Performed By: #### 3 1201-7, 5195-3, 75836-7, SYPH #### [facility] CLIA [id number] [address] [place] [address] [place] Immature granulocytes/100 WBC (Bld) 0.8 % Normal [facility] Comment on above: Order Comment: Speci men Type: BLOOD SPECIMEN Ordering Facility: [facility] Address: [address] [place] [address] Performed By: #### 3 1201-7, 5-3, 49470-3, SYPH #### [facility] CLIA [id number] [address] [place] [address] [place] Lymphocytes (Bld) [#/Vol] 2.59 10*3/uL Normal 1.00-4.00 [facility] Comment on above: Order Comment: Speci men Type: BLOOD SPECIMEN Ordering Facility: [facility] Address: [address] [place] [address] Performed By: #### 3 1201-7, 5194-3, , SYPH #### [facility] CLIA [id number] [address] [place] [address] [place] Lymphocytes/100 WBC (Bld) 19.8 % Normal [facility] Comment on above: Order Comment: Speci men Type: BLOOD SPECIMEN Ordering Facility: [facility] Address: [address] [place] [address] Performed By: #### 3 1201-7, 5-3, 16336-1, SYPH #### [facility] CLIA [id number] [address] [place] [address] [place] MCH (RBC) [Entitic mass] 29.1 pg Normal 26.0-34.0 [facility] Comment on above: Order Comment: Speci men Type: BLOOD SPECIMEN Ordering Facility: [facility] Address: [address] [place] [address] Performed By: #### 3 1201-7, 5195-3, 15863-2, SYPH #### [facility] CLIA [id number] [address] [place] [address] [place] MCHC (RBC) [Mass/Vol] 32.9 g/dL Normal 30.5-36.0 [facility] Comment on above: Order Comment: Speci men Type: BLOOD SPECIMEN Ordering Facility: [facility] Address: [address] [place] [place] [address] Performed By: #### 3 1201-7, 5195-3, 12003-9, SYPH #### [facility] CLIA [id number] [address] [place] [address] [place] MCV (RBC) [Entitic vol] 88.5 fL Normal 80.0-100.0 [facility] Comment on above: Order Comment: Speci men Type: BLOOD SPECIMEN Ordering Facility: [facility] Address: [address] [place] [address] Performed By: #### 3 1201-7, 5195-3, 52911-4, SYPH #### [facility] CLIA [id number] [address] [place] [address] [place] Monocytes (Bld) [#/Vol] 0.76 10*3/uL Normal <0.87 [facility] Comment on above: Order Comment: Speci men Type: BLOOD SPECIMEN Ordering Facility: [facility] Address: [address] [place] [place] [address] Performed By: #### 3 1201-7, 5195-3, 29952-2, SYPH #### [facility] CLIA [id number] [address] [place] [address] [place] Monocytes/100 WBC (Bld) 5.8 % Normal [facility] Comment on above: Order Comment: Speci men Type: BLOOD SPECIMEN Ordering Facility: [facility] Address: [address] [place] [place] [address] Performed By: #### 3 1201-7, 5195-3, 08338-9, SYPH #### [facility] CLIA [id number] [address] [place] [address] [place] Neutrophils (Bld) [#/Vol] 9.56 10*3/uL High 1.45-7.50 [facility] Comment on above: Order Comment: Speci men Type: BLOOD SPECIMEN Ordering Facility: [facility] Address: [address] [place] [address] Performed By: #### 3 1201-7, 5195-3, 70887-5, SYPH #### [facility] CLIA [id number] [address] [place] [address] [place] Neutrophils/100 WBC (Bld) 73.0 % Normal [facility] Comment on above: Order Comment: Speci men Type: BLOOD SPECIMEN Ordering Facility: [facility] Address: [address] [place] [address] Performed By: #### 3 1201-7, 5-3, 63841-7, SYPH #### [facility] CLIA [id number] [address] [place] [address] [place] Nucleated RBC (Bld) [#/Vol] 10*3/uL Normal <0.01 [facility] Comment on above: Order Comment: Speci men Type: BLOOD SPECIMEN Ordering Facility: [facility] Address: [address] [place] [address] Performed By: #### 3 1201-7, 5-3, 90935-1, SYPH #### [facility] CLIA [id number] [address] [place] [address] [place] Nucleated RBC/100 WBC (Bld) [Ratio] 0.0 /100 WBC Normal [facility] Comment on above: Order Comment: Speci men Type: BLOOD SPECIMEN Ordering Facility: [facility] Address: [address] [place] [address] Performed By: #### 3 1201-7, 5195-3, 30306-7, SYPH #### [facility] CLIA [id number] [address] [place] [address] [place] Platelet mean volume (Bld) [Entitic vol] 12.0 fL Normal 9.0-12.7 [facility] Comment on above: Order Comment: Speci men Type: BLOOD SPECIMEN Ordering Facility: [facility] Address: [address] [place] [address] Performed By: #### 3 1201-7, 5195-3, 28416-3, SYPH #### [facility] CLIA [id number] [address] [place] [address] [place] Platelets (Bld) [#/Vol] 180 10*3/uL Normal 150-400 [facility] Comment on above: Order Comment: Speci men Type: BLOOD SPECIMEN Ordering Facility: [facility] Address: [address] [place] [address] Performed By: #### 3 1201-7, 5195-3, 82888-1, SYPH #### [facility] CLIA [id number] [address] [place] [address] [place] RBC (Bld) [#/Vol] 4.95 10*6/uL Normal 3.90-5.20 [facility] Comment on above: Order Comment: Speci men Type: BLOOD SPECIMEN Ordering Facility: [facility] Address: [address] [place] [address] Performed By: #### 3 1201-7, 5195-3, 38924-0, SYPH #### [facility] CLIA [id number] [address] [place], [place] [id number] [place] WBC (Bld) [#/Vol] 13.10 10*3/uL High 3.70-11.00 [facility] Comment on above: Order Comment: Speci men Type: BLOOD SPECIMEN Ordering Facility: [facility] Address: [address] [place] [address] Performed By: #### 3 1201-7, 5195-3, 12273-9, SYPH #### [facility] CLIA [id number] [address] [place] [address], [place] [address] [place] CT ABD/PEL W IVCONon 023 CT ABD/PEL W IVCON * * *Final Report* * * DATE OF EXAM: Apr 06 2023 12:56AM [facility] 0530 - CT ABD/PEL W IVCON / PROCEDURE REASON: Abdominal pain, acute, nonlocalized * * * * Physician Interpretation * * * * EXAMINATION: CT ABD/PEL W IVCON INDICATION: Abdominal pain, acute, nonlocalized Abdominal pain, acute, nonlocalized COMPARISON: 12/08/2022 TECHNIQUE: CT of the abdomen and pelvis was performed using standard technique, scanning from just above the dome of the diaphragm to the pubic symphysis. Contrast: Central IV: 100 ml of Isovue 370 : ml of CT Radiation dose: Integrated Dose-length product (DLP) for this visit = 687.27 mGy*cm. CT Dose Reduction Employed: Automated exposure control(AEC) and iterative recon FINDINGS: Lower Thorax: No consolidations Liver: Medial left liver hypoattenuation, unchanged and may be perfusional or geographic fat. No masses. Gallbladder/Biliary: Unremarkable. No biliary ductal dilatation. Spleen: Unremarkable. Pancreas: Unremarkable. Adrenals: No nodules Kidneys: No suspicious masses. No hydronephrosis. Vasculature: No abdominal aortic aneurysm. GI Tract: No wall thickening or obstruction. Appendectomy. Pelvis: No pelvic masses. No bladder wall thickening. Mesentery/Peritoneum/R etroperitoneum: No free air or fluid Lymph Nodes: No lymphadenopathy. Bones and soft tissues: No suspicious bone lesions. Likely right lower quadrant ventral injection sites/granuloma. Compounder Flavorings (topogram) images: No additional findings. IMPRESSION: 1. No acute abnormality. Promotions Coordinator: PSCB Transcribe Date/Time: Apr 06 2023 1:25A Dictated by : LIANG SLAUGHTER MD This examination was interpreted and the report reviewed and electronically signed by: LIANG SLAUGHTER MD on Apr 06 2023 1:30AM EST [id number] Normal [facility] Comprehensive metabolic 2000 panelon 04-06-2023 Albumin [Mass/Vol] 4.2 g/dL Normal 3.2-5.0 [facility] Comment on above: Order Comment: Speci men Type: BLOOD SPECIMEN Ordering Facility: [facility] Address: [address] [place] [address] Performed By: #### 3 1201-7, 5195-3, 39410-0, SYPH #### [facility] CLIA [id number] [address] [place] [address] [place] ALP [Catalytic activity/Vol] 85 U/L Normal 45-117 [facility] Comment on above: Order Comment: Speci men Type: BLOOD SPECIMEN Ordering Facility: [facility] Address: [address] [place] [address] Performed By: #### 3 1201-7, 5195-3, 63887-7, SYPH #### [facility] CLIA [id number] [address] [place] [address] [place] ALT [Catalytic activity/Vol] 87 U/L High 13-61 [facility] Comment on above: Order Comment: Speci men Type: BLOOD SPECIMEN Ordering Facility: [facility] Address: [address] [place] [address] Result Comment: Resu lts may be falsely depressed after the administration of Sulfasalazine and/or Sulfapyridine. Performed By: #### 3 1201-7, 5195-3, 32346-4, SYPH #### [facility] CLIA [id number] [address] [place] [address] [place] Anion gap [Moles/Vol] 8 mmol/L Normal 5-16 [facility] Comment on above: Order Comment: Speci men Type: BLOOD SPECIMEN Ordering Facility: [facility] Address: [address] [place] [address] Performed By: #### 3 1201-7, 5195-3, 48608-7, SYPH #### [facility] CLIA [id number] [address] [place] [address] [place] AST [Catalytic activity/Vol] 60 U/L High 8-34 [facility] Comment on above: Order Comment: Speci men Type: BLOOD SPECIMEN Ordering Facility: [facility] Address: [address] Result Comment: Resu lts may be falsely depressed after the administration of Sulfasalazine and/or Sulfapyridine. Performed By: #### 3 1201-7, 5195-3, 52204-9, SYPH #### [facility] CLIA [id number] [address] [place] [address] [place] Bilirubin [Mass/Vol] 0.7 mg/dL Normal 0.2-1.0 [facility] Comment on above: Order Comment: Speci men Type: BLOOD SPECIMEN Ordering Facility: [facility] Address: [address] [address] Performed By: #### 3 1201-7, 5-3, , SYPH #### [facility] CLIA [id number] [address] [place] [address] [place] Calcium [Mass/Vol] 9.6 mg/dL Normal 8.5-10.5 [facility] Comment on above: Order Comment: Speci men Type: BLOOD SPECIMEN Ordering Facility: [facility] Address: [address] [place] [address] Performed By: #### 3 1201-7, 5194-3, , SYPH #### [facility] CLIA [id number] [address] [place] [address] [place] Chloride [Moles/Vol] 107 mmol/L Normal 98-107 [facility] Comment on above: Order Comment: Speci men Type: BLOOD SPECIMEN Ordering Facility: [facility] Address: [address] [address] Performed By: #### 3 1201-7, 5195-3, 90710-5, SYPH #### [facility] CLIA [id number] [address] [place] [address] [place] CO2 [Moles/Vol] 26 mmol/L Normal 21-32 [facility] Comment on above: Order Comment: Speci men Type: BLOOD SPECIMEN Ordering Facility: [facility] Address: [address] [place], [place] [address] Performed By: #### 3 1201-7, 5195-3, 16871-3, SYPH #### [facility] CLIA [id number] [address] [place] [address] [place] Creatinine [Mass/Vol] 0.69 mg/dL Normal 0.51-0.95 [facility] Comment on above: Order Comment: Speclatasha russ Type: BLOOD SPECIMEN Ordering Facility: [facility] Address: [address] Result Comment: Cleopatra ents receiving either N-Acetylcysteine (NAC) or Metamizole prior to venipuncture, may have falsely depressed results. Performed By: #### 3 1201-7, 5195-3, 61276-2, SYPH #### [facility] CLIA [id number] [address] [place] [address] [place] [facility] ESTIMATED GLOMERULAR FILTRATION RATE 121 mL/min/1.73m??? Normal >=60 [facility] Comment on above: Order Comment: Belindai jeb Type: BLOOD SPECIMEN Ordering Facility: [facility] Address: [address] [address] Result Comment: Janett mated Glomerular Filtration Rate (eGFR) is calculated using the 2020 CKD-EPI creatinine equation. This equation utilizes serum creatinine, sex, and age as parameters. The creatinine assay has traceable calibration to isotope dilution-mass spectrometry. Refer to KDIGO guidelines for clinical interpretation. In patients with unstable renal function, e.g. those with acute kidney injury, the eGFR may not accurately reflect actual GFR. Performed By: #### 3 1201-7, 5195-3, 99084-1, SYPH #### [facility] CLIA [id number] [address] [place] [address] [place] Glucose [Mass/Vol] 79 mg/dL Normal 70-100 [facility] Comment on above: Order Comment: Jon russ Type: BLOOD SPECIMEN Ordering Facility: [facility] Address: [address] [address] Result Comment: The [place] Diabetes Association (ADA) provides guidance for cutoff values for fasting glucose and random glucose. The ADA defines fasting as no caloric intake for at least 8 hours. Fasting plasma glucose results between 100 to 125 mg/dL indicate increased risk for diabetes (prediabetes). Fasting plasma glucose results greater than or equal to 126 mg/dL meet the criteria for diagnosis of diabetes. In the absence of unequivocal hyperglycemia, results should be confirmed by repeat testing. In a patient with classic symptoms of hyperglycemia or hyperglycemic crisis, random plasma glucose results greater than or equal to 200 mg/dL meet the criteria for diagnosis of diabetes. Reference: Standards of Medical Care in Diabetes 2016, [place] Diabetes Association. Diabetes Care. 2016.39(Suppl 1). Results may be falsely elevated after the administration of Sulfapyridine. Results may be falsely depressed after the administration of Sulfasalazine. Performed By: #### 3 1201-7, 5195-3, 62471-0, SYPH #### [facility] CLIA [id number] [address] [place] [address] [place] Potassium [Moles/Vol] 4.0 mmol/L Normal 3.5-5.1 [facility] Comment on above: Order Comment: Jon russ Type: BLOOD SPECIMEN Ordering Facility: [facility] Address: [address] [place] [address] Performed By: #### 3 1201-7, 5195-3, 73439-0, SYPH #### [facility] CLIA [id number] [address] [place] [address] [place] Protein [Mass/Vol] 7.2 g/dL Normal 6.0-8.5 [facility] Comment on above: Order Comment: Jon russ Type: BLOOD SPECIMEN Ordering Facility: [facility] Address: [address] [id number] Performed By: #### 3 1201-7, 5195-3, 11155-5, SYPH #### [facility] CLIA [id number] [address] [place] [address] [place] Sodium [Moles/Vol] 141 mmol/L Normal 136-145 [facility] Comment on above: Order Comment: Jon russ Type: BLOOD SPECIMEN Ordering Facility: [facility] Address: [address] [place] [address] Performed By: #### 3 1201-7, 5195-3, 85254-1, SYPH #### [facility] CLIA [id number] [address] [place], [place] [address] [facility] Urea nitrogen [Mass/Vol] 15 mg/dL Normal 7- [facility] Comment on above: Order Comment: Speci men Type: BLOOD SPECIMEN Ordering Facility: [facility] Address: [place] [address] Performed By: #### 3 1201-7, 5195-3, 61079-0, SYPH #### [facility] CLIA [id number] [address] [place], [place] [address] [facility] ED PROV NOTEon 04-06-2023 ED PROV NOTE HNO ID: [id number] Author: Greg Talbot DO Service: Emergency Medicine Author Type: Physician Type: ED Provider Notes Filed: 04/06/2023 2:54 AM Note Text: ED CONTINUATION OF CARE NOTE Code Status: Prior Assumed care from: Dr Nj Presentation / Findings / Interventions / Plan / Items to Follow Up: Patient was signed out to me by the outgoing nighttime physician pending urinalysis and CT abdominal imaging. CT scan has resulted without acute findings, urinalysis negative. Of note, the patient did have a couple periods of low blood glucose levels in the emergency room this evening, she was given crackers and snacks by nursing staff, recheck resulted at 54, after further discussion with the patient, she does note that her insulin pump is currently active, she intended to shut this off earlier this evening and had forgotten. Ultimately, after shutting off her insulin pump briefly, repeat glucose is 213. She is felt appropriate for discharge home at this time with supportive care and return precautions given. Clinical Impressions as of 04/06/23253 Pain of left hip Pelvic pain in female SIGNATURE: Greg Talbot DO PATIENT NAME: Kathleen Villa DATE: April 06, 2023 TIME: 2:25 AM PAGER/CONTACT #: GREG TALBOT 04/06/23 0236 GREG TALBOT 04/06/23253 [facility] ED PROV NOTE HNO ID: [id number] Author: Jorge Alberto Nj MD Service: ? Author Type: Physician Type: ED Provider Notes Filed: 04/06/2023 12:02 AM Note Text: ED Provider Note Patient Name: Kathleen Villa : 1995 SERVICE DATE: 04/05/23 History Patient presents with: Hip Pain Back Pain Pelvic Pain: Left side since AM 27-year-old female comes in for evaluation of some left-sided lower quadrant and flank and hip discomfort. History of ovarian cyst, which she states does not really feel exactly like it. History of remote kidney stone also states does not really feel exactly like that. She thought it may be radiating into her hip joint a bit as well as the flank and groin. She has not noticed any dysuria. She has had nausea. She has some diminished p.o. intake today because of the nausea. While waiting in the waiting room, she felt like her blood glucose was getting low she checked it at 46 and she ate a little bit of food. She is a type I diabetic, and also has a history of heart fans syndrome. She has had previous cardiac surgery due to the Marfan's. She denies fever or diarrhea. 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 VAMSI 11/2014 SECTION HX 02/25/2014 amairani 37 weeks PAST SURGICAL HISTORY OF Right 01/08/2020 REMOVE IMPLANTED MATERIAL POSTERIOR SEGMENT OF EYE, EXTRAOCULAR PICC LINE INSERT/CONSULT 01/09/2014 PORT Left VITRECTOMY MECHANICAL PARS PLANA 10/29/2012 PPV (Pars Plana Vitrectomy) OD VITRECTOMY MECHANICAL PARS PLANA 05/14/2014 PPV (Pars Plana Vitrectomy)/PCIOL OS XTRNL PT ACTIV ECG TRANSMIS W/LUBA left chest wall FAMILY HISTORY Problem Relation Age of Onset Cancer Mother 18 cervical Thyroid Mother Multiple Sclerosis Father other (mitral valve) Father Thyroid Sister Diabetes Maternal Grandmother type 2 diabetes Cataract Other maternal great grandma Glaucoma Other maternal great grandma Social History Tobacco Use Smoking status: Former Packs/day: 0.30 Years: 8.00 Total pack years: 2.40 Types: Cigarettes Quit date: 06/2019 Years since quittin.7 Smokeless tobacco: Never Vaping Use Vaping Use: Never used Substance and Sexual Activity Alcohol use: Yes Comment: very rarely Drug use: Yes Types: Marijuana Comment: medical card previous Sexual activity: Yes Partners: Male control/protection: None ALLERGIES Allergen Reactions Percocet [Oxycodone* Rash, Intolerance, Itching Adhesive Tape (Lidia* Rash Indomethacin Rash Keflex [Cephalexin] Other: See Comments Makes infection worse- patient denies this on 02/25/2014 Morphine Rash, Itching Zofran [Ondansetron* Other: See Comments syncope Adhesive Rash Physical Exam Vitals [04/05/23 2140] BP Pulse Temp Temp src Resp SpO2 Weight Height 119/77 85 37.1 ?C (98.8 ?F) Oral 16 95 % 81.6 kg (180 lb) 1.753 m (5' 9) Physical Exam Constitutional: Appearance: Normal appearance. HENT: Head: Normocephalic and atraumatic. Cardiovascular: Rate and Rhythm: Normal rate. Pulmonary: Effort: Pulmonary effort is normal. Breath sounds: Normal breath sounds. Abdominal: Palpations: Abdomen is soft. Comments: Some vague abdominal tenderness on the left side and left flank with she does not really consistently reproduce. Musculoskeletal: Cervical back: Normal range of motion. Comments: Crosslegged on the bed, does not appear that this is a hip joint problem. No other acute extremity findings today Skin: General: Skin is warm and dry. Neurological: Mental Status: She is alert. Diagnostic Testing ED Labs Ordered and Reviewed COMP METABOLIC PANEL - Abnormal; Notable for the following components: Result Value Ref Range AST 60 (*) 8 - 34 U/L ALT 87 (*) 13 - 61 U/L All other components within normal limits CBC + DIFF - Abnormal; Notable for the following components: WBC 13.10 (*) 3.70 - 11.00 k/uL Abs Neut 9.56 (*) 1.45 - 7.50 k/uL Abs Immature Gran 0.11 (*) <0.10 k/uL All other components within normal limits HCG QUAL BLD - Normal URINALYSIS WITH MICROSCOPIC, REFLEX CULTURE Procedures ED Course / Clinical Impression MDM / Disposition / Plan So the patient is a type I diabetic. She does not clinically look like she is in DKA but we will need to check some lab work on her. We will hydrate her and treat her symptomatically with pain medication and nausea medicine in the interim. As far as workup for this flank discomfort, this could be ki (more content not included)... Normal [facility] ED Triage Noteon 04-06-2023 ED Triage Note HNO ID: [id number] Author: Merced Mora PA-C Service: ? Author Type: Physician [employer] Clerk Type: ED Triage Notes Filed: 04/05/2023 10:31 PM Note Text: ED INTAKE NOTE Patient Name: Kathleen Villa Service Date: 04/05/23 BRIEF HPI: The patient, 27-year-old female presents emergency department for evaluation of left lower hip, pelvic and back pain. Patient states her symptoms started earlier today. She developed pain in her left lower abdomen, hip area that she thought may have been secondary to a cyst. She states the pain is since moved into her back and low pelvis area. She has had some associated nausea but denies any vomiting, fevers, urinary symptoms. While in the emergency department waiting room patient states she did become hypoglycemic which she states her blood sugar was 46. She states that is been ongoing intermittently today, as she has not been able to eat or drink much secondary to the nausea. BRIEF EXAM: Awake and Alert RRR CTAB Abd soft/NT/ND; no rebound/guarding INTAKE WORKUP: Bloodwork: CBC CMP Urinalysis SIGNATURE: Merced Mora PA-C Normal [facility] HCG QUAL BLDon 04-06-2023 HCG, QUALITATIVE Negative Normal Negative [facility] Comment on above: Order Comment: Speci men Type: BLOOD SPECIMEN Ordering Facility: [facility] Address: [place] [address] Performed By: #### 3 1201-7, 5195-3, 81778-1, SYPH #### [facility] CLIA [id number] [facility] [place] [address] [place] Urinalysis complete panel (U )on 04-06-2023 Bacteria LM.HPF (Urine sed) [#/Area] Rare Abnormal None Seen [facility] Comment on above: Order Comment: Speci men Type: BLOOD SPECIMEN Ordering Facility: [facility] Address: [address] [address] Performed By: #### 3 1201-7, 5195-3, 71554-8, SYPH #### [facility] CLIA [id number] [address] [place] [address] [place] Bilirubin Ql (U) Negative Normal Negative [facility] Comment on above: Order Comment: Speci men Type: BLOOD SPECIMEN Ordering Facility: [facility] Address: [address] [place] [address] Performed By: #### 3 1201-7, 5-3, 87546-9, SYPH #### [facility] CLIA [id number] [address] [place] [address] [place] Clarity (Unsp spec) Clear Normal Clear [facility] Comment on above: Order Comment: Speci men Type: BLOOD SPECIMEN Ordering Facility: [facility] Address: [address] [place] [address] Performed By: #### 3 1201-7, 5-3, 48626-8, SYPH #### [facility] CLIA [id number] [address] [place] [address] [place] Color (U) Yellow Normal Yellow [facility] Comment on above: Order Comment: Speci men Type: BLOOD SPECIMEN Ordering Facility: [facility] Address: [address] [address] Performed By: #### 3 1201-7, 5195-3, 53220-2, SYPH #### [facility] CLIA [id number] [address] [place] [address] [place] Epithelial cells LM.HPF (Urine sed) [#/Area] Many Normal [facility] Comment on above: Order Comment: Speci men Type: BLOOD SPECIMEN Ordering Facility: [facility] Address: [address] [place] [address] Performed By: #### 3 1201-7, 5-3, 44225-5, SYPH #### [facility] CLIA [id number] [address] [place] [address] [place] Glucose Test strip (U) [Mass/Vol] Negative Normal Negative [facility] Comment on above: Order Comment: Speci men Type: BLOOD SPECIMEN Ordering Facility: [facility] Address: [address] [place] [address] Performed By: #### 3 1201-7, 5-3, 98683-4, SYPH #### [facility] CLIA [id number] [address] [place] [address] [place] Hemoglobin Ql (U) Negative Normal Negative [facility] Comment on above: Order Comment: Speci men Type: BLOOD SPECIMEN Ordering Facility: [facility] Address: [address] [place] [address] Performed By: #### 3 1201-7, 3, 47827-5, SYPH #### [facility] CLIA [id number] [address] [place] [address] [place] Ketones Ql (U) Trace Abnormal Negative [facility] Comment on above: Order Comment: Speci men Type: BLOOD SPECIMEN Ordering Facility: [facility] Address: [address] [place] [address] Performed By: #### 3 1201-7, 5194-3, 49380-5, SYPH #### [facility] CLIA [id number] [address] [place] [address] [place] Leukocyte esterase Test strip Ql (U) 1+ Abnormal Negative [facility] Comment on above: Order Comment: Speci men Type: BLOOD SPECIMEN Ordering Facility: [facility] Address: [address] [place] [address] Performed By: #### 3 1201-7, 5-3, 13860-3, SYPH #### [facility] CLIA [id number] [address] [place] [address] [place] Nitrite Ql (U) Negative Normal Negative [facility] Comment on above: Order Comment: Speci men Type: BLOOD SPECIMEN Ordering Facility: [facility] Address: [address] [place] [address] Performed By: #### 3 1201-7, 5195-3, 99066-2, SYPH #### [facility] CLIA [id number] [address] [place] [address] [place] pH (U) 5.0 [pH] Normal 5.0-8.0 [facility] Comment on above: Order Comment: Speci men Type: BLOOD SPECIMEN Ordering Facility: [facility] Address: [address] [place] [address] Performed By: #### 3 1201-7, 5195-3, 52655-5, SYPH #### [facility] CLIA [id number] [address] [place] [address] [place] Protein (U) [Mass/Vol] Negative Normal Negative [facility] Comment on above: Order Comment: Speci men Type: BLOOD SPECIMEN Ordering Facility: [facility] Address: [address] [place] [address] Performed By: #### 3 1201-7, 53, , SYPH #### [facility] CLIA [id number] [address] [place] [address] [place] RBC LM.HPF (Urine sed) [#/Area] 3-5 /HPF Abnormal 0-3 /HPF [facility] Comment on above: Order Comment: Speci men Type: BLOOD SPECIMEN Ordering Facility: [facility] Address: [address] [place] [address] Performed By: #### 3 1201-7, 5195-3, 29398-7, SYPH #### [facility] CLIA [id number] [address] [place] [address] [place] Specific gravity (U) [Rel density] >1.030 High 1.005-1.030 [facility] Comment on above: Order Comment: Speci men Type: BLOOD SPECIMEN Ordering Facility: [facility] Address: [address] [place] [address] Performed By: #### 3 1201-7, 5195-3, 43247-9, SYPH #### [facility] CLIA [id number] [address] [place] [address] Urobilinogen Ql (U) Negative Normal Negative [facility] Comment on above: Order Comment: Speci men Type: BLOOD SPECIMEN Ordering Facility: [facility] Address: [address] [place], [place] [address] Performed By: #### 3 1201-7, 5195-3, 26668-6, SYPH #### [facility] CLIA [id number] [address] [place] [address] [place] WBC LM.HPF (Urine sed) [#/Area] 6-10 /HPF Abnormal 0-5 /HPF [facility] Comment on above: Order Comment: Speci men Type: BLOOD SPECIMEN Ordering Facility: [facility] Address: [address] [place], [place] [address] Performed By: #### 3 1201-7, 5195-3, 80598-5, SYPH #### [facility] CLIA [id number] [address] [place] [address] [place] ED NOTEon 04-05-2023 ED NOTE HNO ID: [id number] Author: Ten Mao RN Service: Nursing Author Type: Registered Nurse Type: ED Notes Filed: 04/05/2023 9:44 PM Note Text: PT presents to ED with c/o left hip pain, back pain and pelvic pain. Reports hip pain started first this morning. Pain now radiating into back and pelvic area. Endorses nausea. Normal [facility] Basic metabolic 2000 panelon 03-22-2023 Anion gap [Moles/Vol] 7 mmol/L Low 10 - 20 mmol/L [facility] Calcium [Mass/Vol] 8.0 mg/dL Low 8.4 - 10. 2 mg/dL [facility] Chloride [Moles/Vol] 110 mmol/L High 98 - 10 8 mmol/L [facility] Creatinine [Mass/Vol] 0.81 mg/dL 0.40 - 1.10 mg/dL [facility] [facility] GFR/1.73 sq M.predicted CKD-EPI (S/P/Bld) [Vol rate/Area] 102 - PINF [facility] Comment on above: Estimated GFR was ca lculated using the 2020 CKD-EPI creatinine equation. Glucose [Mass/Vol] 251 mg/dL High 65 - 99 mg/dL [facility] HCO3 [Moles/Vol] 26 mmol/L 21 - 32 mmol/L [facility] Interpretation and review of laboratory results Abnormal [facility] Potassium [Moles/Vol] 3.2 mmol/L Low 3.5 - 5.1 mmol/L [facility] Sodium [Moles/Vol] 140 mmol/L 135 - 145 mmol/L [facility] Urea nitrogen [Mass/Vol] 8 mg/dL 8 - 25 mg/dL [facility] Urea nitrogen/Creatinine [Mass ratio] 9.9 mg/mg Low 10.0 - 20.0 [facility] has implemented the eGFR calculation approach that does not have a coefficient for race that conforms to the NKF-ASN Task Force Recommendations. [facility] CBC Auto Differentialon 02-26 Basophils (Bld) [#/Vol] 0.02 10*3/uL [facility] Basophils/100 WBC (Bld) 0.2 % [facility] Eosinophils (Bld) [#/Vol] 0.04 10*3/uL [facility] Eosinophils/100 WBC (Bld) 0.4 % [facility] Erythrocyte distribution width (RBC) [Entitic vol] 13.9 % 11.6 - 14.8 % [facility] Hematocrit (Bld) [Volume fraction] 37.4 % 36.0 - 46.0 % [facility] Hemoglobin (Bld) [Mass/Vol] 12.4 g/dL 12.0 - 16.0 g/dL [facility] Immature granulocytes (Bld) [#/Vol] 0.07 10*3/uL [facility] Immature granulocytes/100 WBC (Bld) 0.70 % [facility] Comment on above: The IG parameter is the percentage of metamyelocytes, myelocytes and promyelocytes. An immature granulocyte count (IG) of 1% or more suggests the possibility of infection, an IG count of 3% is very likely related to an infection. Lymphocytes (Bld) [#/Vol] 2.55 10*3/uL [facility] Lymphocytes/100 WBC (Bld) 27.1 % [facility] MCH (RBC) [Entitic mass] 29.1 pg 26.0 - 34.0 pg [facility] MCHC (RBC) [Mass/Vol] 33.2 g/dL 31.0 - 37.0 g/dL [facility] MCV (RBC) [Entitic vol] 87.8 fL 80.0 - 100.0 fL [facility] Monocytes (Bld) [#/Vol] 0.57 10*3/uL [facility] Monocytes/100 WBC (Bld) 6.1 % [facility] Neutrophils (Bld) [#/Vol] 6.16 10*3/uL [facility] Neutrophils/100 WBC (Bld) 65.5 % [facility] Nucleated RBC (Bld) [#/Vol] 0.00 10*3/uL [facility] Nucleated RBC/100 WBC (Bld) [Ratio] 0.0 % [facility] Platelet mean volume (Bld) [Entitic vol] 11.8 fL 9.4 - 12.4 fL [facility] Platelets (Bld) [#/Vol] 165 10*3/uL [facility] RBC (Bld) [#/Vol] 4.26 10*6/uL [facility] WBC (Bld) [#/Vol] 9.41 10*3/uL [facility] Glucose (Bld) [Mass/Vol]on 0 03-22-2023 Glucose [Mass/Vol] 101 mg/dL High 65 - 99 mg/dL [facility] Interpretation and review of laboratory results Abnormal [facility] Glucose [Mass/Vol] 117 mg/dL High 65 - 99 mg/dL [facility] Interpretation and review of laboratory results Abnormal [facility] Glucose [Mass/Vol] 182 mg/dL High 65 - 99 mg/dL [facility] Interpretation and review of laboratory results Abnormal [facility] Glucose [Mass/Vol] 168 mg/dL High 65 - 99 mg/dL [facility] Interpretation and review of laboratory results Abnormal [facility] Glucose [Mass/Vol] 77 mg/dL 65 - 99 mg/dL [facility] Interpretation and review of laboratory results Normal [facility] Glucose [Mass/Vol] 42 mg/dL Low 65 - 99 mg/dL [facility] Interpretation and review of laboratory results Abnormal [facility] Magnesium Levelon 03-22-2023 Magnesium [Mass/Vol] 2.0 mg/dL 1.6 - 2 .4 mg/dL [facility] Magnesium [Mass/Vol]on 03-22 Interpretation and review of laboratory results Normal [facility] No Panel Informationon 03-22 [facility] Phosphate [Mass/Vol]on 03-22 Interpretation and review of laboratory results Abnormal [facility] Phosphoruson 03-22-2023 Phosphate [Mass/Vol] 2.4 mg/dL Low 2.7 - 4 .5 mg/dL [facility] CBC panel Auto (Bld)on 03-21 Erythrocyte distribution width (RBC) [Entitic vol] 14.0 % 11.6 - 14.8 % [facility] Hematocrit (Bld) [Volume fraction] 35.7 % Low 36.0 - 46.0 % [facility] Hemoglobin (Bld) [Mass/Vol] 11.7 g/dL Low 12.0 - 16.0 g/dL [facility] Interpretation and review of laboratory results Abnormal [facility] MCH (RBC) [Entitic mass] 29.2 pg 26.0 - 34.0 pg [facility] MCHC (RBC) [Mass/Vol] 32.8 g/dL 31.0 - 37.0 g/dL [facility] MCV (RBC) [Entitic vol] 89.0 fL 80.0 - 100.0 fL [facility] Nucleated RBC (Bld) [#/Vol] 0.00 10*3/uL [facility] Nucleated RBC/100 WBC (Bld) [Ratio] 0.0 % [facility] Platelet mean volume (Bld) [Entitic vol] 12.9 fL High 9.4 - 12.4 fL [facility] Platelets (Bld) [#/Vol] 169 10*3/uL [facility] RBC (Bld) [#/Vol] 4.01 10*6/uL [facility] WBC (Bld) [#/Vol] 20.82 10*3/uL [facility] Comprehensive metabolic 2000 panelon 03-21-2023 Albumin [Mass/Vol] 3.3 g/dL 3.2 - 5.2 g/dL [facility] ALP [Catalytic activity/Vol] 71 U/L 40 - 140 U/L [facility] ALT [Catalytic activity/Vol] 20 U/L 14 - 65 U/L [facility] Anion gap [Moles/Vol] 16 mmol/L 10 - 20 mmol/L [facility] AST [Catalytic activity/Vol] 10 U/L 0 - 45 U/L [facility] Bilirubin [Mass/Vol] 0.8 mg/dL 0.0 - 1 .3 mg/dL [facility] Calcium [Mass/Vol] 8.4 mg/dL 8.4 - 10. 2 mg/dL [facility] Chloride [Moles/Vol] 111 mmol/L High 98 - 10 8 mmol/L [facility] Creatinine [Mass/Vol] 0.81 mg/dL 0.40 - 1.10 mg/dL [facility] GFR/1.73 sq M.predicted CKD-EPI (S/P/Bld) [Vol rate/Area] 102 - PINF [facility] Comment on above: Estimated GFR was ca lculated using the 2020 CKD-EPI creatinine equation. Glucose [Mass/Vol] 162 mg/dL High 65 - 99 mg/dL [facility] HCO3 [Moles/Vol] 18 mmol/L Low 21 - 32 mmol/L [facility] Interpretation and review of laboratory results Abnormal [facility] Potassium [Moles/Vol] 3.6 mmol/L 3.5 - 5.1 mmol/L [facility] Protein [Mass/Vol] 6.3 g/dL 6.0 - 8.0 g/dL [facility] Sodium [Moles/Vol] 141 mmol/L 135 - 145 mmol/L [facility] Urea nitrogen [Mass/Vol] 11 mg/dL 8 - 25 mg/dL [facility] Urea nitrogen/Creatinine [Mass ratio] 13.6 mg/mg 10.0 - 20.0 [facility] has implemented the eGFR calculation approach that does not have a coefficient for race that conforms to the NKF-ASN Task Force Recommendations. [facility] Glucose (Bld) [Mass/Vol]on 0 03-21-2023 Glucose [Mass/Vol] 179 mg/dL High 65 - 99 mg/dL [facility] Interpretation and review of laboratory results Abnormal [facility] Glucose [Mass/Vol] 102 mg/dL High 65 - [facility] of [facility] results Abnormal [facility] Glucose [Mass/Vol] 80 mg/dL 65 - 99 mg/dL [facility] Interpretation and review of laboratory results Normal [facility] Glucose [Mass/Vol] 113 mg/dL High 65 - 99 mg/dL [facility] Interpretation and review of laboratory results Abnormal [facility] Magnesiumon 03-21-2023 Magnesium [Mass/Vol] 2.4 mg/dL 1.6 - 2 .4 mg/dL [facility] Magnesium [Mass/Vol]on 03-21 Interpretation and review of laboratory results Normal [facility] No Panel Informationon 03-21 [facility] Phosphate [Mass/Vol]on 03-21 Interpretation and review of laboratory results Normal [facility] Phosphoruson 03-21-2023 Phosphate [Mass/Vol] 2.7 mg/dL 2.7 - 4 .5 mg/dL [facility] Basic metabolic 1997 panelon 03-20-2023 Anion gap [Moles/Vol] 12 mmol/L 10 - 20 mmol/L [facility] Chloride [Moles/Vol] 108 mmol/L 98 - 10 8 mmol/L [facility] Creatinine [Mass/Vol] 0.98 mg/dL 0.40 - 1.10 mg/dL [facility] GFR/1.73 sq M.predicted CKD-EPI (S/P/Bld) [Vol rate/Area] 81 - PINF [facility] Comment on above: Estimated GFR was ca lculated using the 2020 CKD-EPI creatinine equation. Glucose [Mass/Vol] 247 mg/dL High 65 - 99 mg/dL [facility] HCO3 [Moles/Vol] 24 mmol/L 21 - 32 mmol/L [facility] Potassium [Moles/Vol] 3.5 mmol/L 3.5 - 5.1 mmol/L [facility] Sodium [Moles/Vol] 140 mmol/L 135 - 145 mmol/L [facility] Urea nitrogen [Mass/Vol] 15 mg/dL 8 - 25 mg/dL [facility] Urea nitrogen/Creatinine [Mass ratio] 15.3 mg/mg 10.0 - 20.0 [facility] has implemented the eGFR calculation approach that does not have a coefficient for race that conforms to the NKF-ASN Task Force Recommendations. [facility] Basic metabolic 1999 panelon 03-20-2023 Anion gap [Moles/Vol] 13 mmol/L 10 - 20 mmol/L [facility] Calcium [Mass/Vol] 8.1 mg/dL Low 8.4 - 10. 2 mg/dL [facility] Chloride [Moles/Vol] 106 mmol/L 98 - 10 8 mmol/L [facility] Creatinine [Mass/Vol] 0.86 mg/dL 0.40 - 1.10 mg/dL [facility] GFR/1.73 sq M.predicted CKD-EPI (S/P/Bld) [Vol rate/Area] 95 - PINF [facility] Comment on above: Estimated GFR was ca lculated using the 2020 CKD-EPI creatinine equation. Glucose [Mass/Vol] 316 mg/dL High 65 - 99 mg/dL [facility] HCO3 [Moles/Vol] 21 mmol/L 21 - 32 mmol/L [facility] Interpretation and review of laboratory results Abnormal [facility] Potassium [Moles/Vol] 4.0 mmol/L 3.5 - 5.1 mmol/L [facility] Sodium [Moles/Vol] 136 mmol/L 135 - 145 mmol/L [facility] Urea nitrogen [Mass/Vol] 12 mg/dL 8 - 25 mg/dL [facility] Urea nitrogen/Creatinine [Mass ratio] 14.0 mg/mg 10.0 - 20.0 [facility] has implemented the eGFR calculation approach that does not have a coefficient for race that conforms to the NKF-ASN Task Force Recommendations. [facility] Beta HCG ( test) Ql on 03-20-2023 Interpretation and review of laboratory results Normal [facility] Negative: The result is less than or equal to 5 mIU/mL of HCG. [facility] Beta hydroxybutyrate [Moles/ Vol]on 03-20-2023 Interpretation and review of laboratory results Abnormal [facility] Beta-Hydroxybutyrateon 03-20 Beta hydroxybutyrate [Moles/Vol] 1.8 mmol/L High 0.0 - 0.3 mmol/L [facility] CBC Auto Differentialon 02-26 Basophils (Bld) [#/Vol] 0.04 10*3/uL [facility] Basophils/100 WBC (Bld) 0.4 % [facility] Eosinophils (Bld) [#/Vol] 0.03 10*3/uL [facility] Eosinophils/100 WBC (Bld) 0.3 % [facility] Erythrocyte distribution width (RBC) [Entitic vol] 13.7 % 11.6 - 14.8 % [facility] Hematocrit (Bld) [Volume fraction] 38.9 % 36.0 - 46.0 % [facility] Hemoglobin (Bld) [Mass/Vol] 13.0 g/dL 12.0 - 16.0 g/dL [facility] Immature granulocytes (Bld) [#/Vol] 0.08 10*3/uL [facility] Immature granulocytes/100 WBC (Bld) 0.80 % [facility] Comment on above: The IG parameter is the percentage of metamyelocytes, myelocytes and promyelocytes. An immature granulocyte count (IG) of 1% or more suggests the possibility of infection, an IG count of 3% is very likely related to an infection. Interpretation and review of laboratory results Abnormal [facility] Lymphocytes (Bld) [#/Vol] 2.45 10*3/uL [facility] Lymphocytes/100 WBC (Bld) 23.6 % [facility] MCH (RBC) [Entitic mass] 29.0 pg 26.0 - 34.0 pg [facility] MCHC (RBC) [Mass/Vol] 33.4 g/dL 31.0 - 37.0 g/dL [facility] MCV (RBC) [Entitic vol] 86.6 fL 80.0 - 100.0 fL [facility] Monocytes (Bld) [#/Vol] 0.62 10*3/uL [facility] Monocytes/100 WBC (Bld) 6.0 % [facility] Neutrophils (Bld) [#/Vol] 7.17 10*3/uL High [facility] Neutrophils/100 WBC (Bld) 68.9 % [facility] Nucleated RBC (Bld) [#/Vol] 0.00 10*3/uL [facility] Nucleated RBC/100 WBC (Bld) [Ratio] 0.0 % [facility] Platelet mean volume (Bld) [Entitic vol] 12.5 fL High 9.4 - 12.4 fL [facility] Platelets (Bld) [#/Vol] 160 10*3/uL [facility] RBC (Bld) [#/Vol] 4.49 10*6/uL [facility]alth WBC (Bld) [#/Vol] 10.39 10*3/uL [facility] CT [facility]GRAM [facility]ST [facility]BD[facility]EN [facility]23 CT ANGIOGRAM CHEST ABDOMEN PELVIS EXAMINATION: CT ANGIOGRAM CHEST ABDOMEN PELVIS HISTORY: ORDERING SYSTEM PROVIDED HISTORY: chest and abdomen pain, TECHNOLOGIST PROVIDED HISTORY: Illness/Other Reason for exam: chest and abd pain, vomiting Encounter Type: Initial Additional signs and symptoms: ORDERING SYSTEM PROVIDED DIAGNOSIS CODES: COMPARISON: None. TECHNIQUE: Dose reduction techniques were achieved by using automated exposure control and/or adjustment of mA and/or kV according to patient size and/or use of iterative reconstruction technique. Coronal and sagittal MIP (maximum intensity projection) images were performed. CT angiography chest, abdomen and pelvis studies are acquired during bolus intravenous administration of iodinated contrast material. Multiplanar reconstruction performed as well as independent 3D workstation postprocessed imaging. CONTRAST: IOPAMIDOL 370 MG IODINE/ML (76 %) INTRAVENOUS SOLUTION - 75 mL, FINDINGS: CTA: There is a tricuspid aortic valve, normal diameter aortic root. Graft material in the region of the aortic root noted should be closely clinically correlated. The aortic arch, brachiocephalic vessel origins and proximal included segments appear to be normal. There is normal caliber of the descending thoracic aorta. Abdominal aortic caliber is normal. All visceral branch origins and proximal segments appeared normal. Normal common and external iliac arteries to the level of the common femoral arteries. Central pulmonary arteries are well opacified. No filling defects identified based on these studies. CT CHEST: The heart is not enlarged. There are no enlarged mediastinal lymph nodes or abnormality of the esophagus. The lung airspaces are clear and well ventilated. Central tracheobronchial tree structures are clear. Supraclavicular soft tissues and thyroid are normal. Chest wall, axillary soft tissues are normal. There is a left pectoral port noted position with subclavian entry point and tip positioned at the upper right atrium. Note made of sternotomy. The bony structures of the thoracic spine and sternum appear to be intact. CT ABDOMEN AND PELVIS: There does not appear to be peritoneal free air or free fluid on the studies. The size, configuration of the liver and spleen are normal. Internal density appears satisfactory. Normal fluid-filled gallbladder. The pancreas, adrenal glands, and bilateral kidneys appear to be satisfactory. No retroperitoneal mass or adenopathy. Mesenteric lymph nodes are unremarkable. In the pelvis, nonenlarged uterus seen. There appears to be a vaginal pessary. No adnexal masses or free fluid noted. The bladder appears to be satisfactory. Normal size, configuration of the stomach, duodenum. Small bowel loops are normal caliber. Normal ileocecal junction, and colon appearances on the study. There appear to be cholecystectomy clips present in the cecal tip region. The bony pelvic girdle and lumbar spine appear to be intact. Abdominal wall structures appear to be intact. IMPRESSION: 1. No acute thoracoabdominal aortic pathology. No aneurysm. 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 2. No acute cardiopulmonary abnormality. No airspace opacities or pleural fluid. 3. No acute intraabdominal or pelvic pathology. Specifically, no signs of bowel or urinary tract obstruction, free air, free fluid or abnormal dilation of large or small bowel. Note made of prior appendectomy surgical clips. [employer] Workstation ID: [id number] Dictated by: DAVID MOURA on MonMar 20, 2023 9:50:12 AM EDT Transcribed by: TANNER LOVETT on MonMar 20, 2023 9:59:46 AM EDT Finalized by: DAVID MOURA on MonMar 20, 2023 10:29:33 AM EDT [facility] Comment on above: Order Comment: Injur y/Trauma or Illness?:Illness/Other How long have you had these symptoms (acute/chronic)?:Acute Reason for exam?:chest and abd pain, vomiting Type of Exam?:Initial Additional signs and symptoms?: CT Angiogram Chest Abdomen [facility] 03-20-2023 1. No acute thoracoabdominal aortic pathology. No aneurysm. 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 2. No acute cardiopulmonary abnormality. No airspace opacities or pleural fluid. 3. No acute intraabdominal or pelvic pathology. Specifically, no signs of bowel or urinary tract obstruction, free air, free fluid or abnormal dilation of large or small bowel. Note made of prior appendectomy surgical clips. [employer] Workstation ID: [id number] [facility] EXAMINATION: CT ANGIOGRAM CHEST ABDOMEN PELVIS HISTORY: ORDERING SYSTEM PROVIDED HISTORY: chest and abdomen pain, TECHNOLOGIST PROVIDED HISTORY: Illness/Other Reason for exam: chest and abd pain, vomiting Encounter Type: Initial Additional signs and symptoms: ORDERING SYSTEM PROVIDED DIAGNOSIS CODES: COMPARISON: None. TECHNIQUE: Dose reduction techniques were achieved by using automated exposure control and/or adjustment of mA and/or kV according to patient size and/or use of iterative reconstruction technique. Coronal and sagittal MIP (maximum intensity projection) images were performed. CT angiography chest, abdomen and pelvis studies are acquired during bolus intravenous administration of iodinated contrast material. Multiplanar reconstruction performed as well as independent 3D workstation postprocessed imaging. CONTRAST: IOPAMIDOL 370 MG IODINE/ML (76 %) INTRAVENOUS SOLUTION - 75 mL, FINDINGS: CTA: There is a tricuspid aortic valve, normal diameter aortic root. Graft material in the region of the aortic root noted should be closely clinically correlated. The aortic arch, brachiocephalic vessel origins and proximal included segments appear to be normal. There is normal caliber of the descending thoracic aorta. Abdominal aortic caliber is normal. All visceral branch origins and proximal segments appeared normal. Normal common and external iliac arteries to the level of the common femoral arteries. Central pulmonary arteries are well opacified. No filling defects identified based on these studies. CT CHEST: The heart is not enlarged. There are no enlarged mediastinal lymph nodes or abnormality of the esophagus. The lung airspaces are clear and well ventilated. Central tracheobronchial tree structures are clear. Supraclavicular soft tissues and thyroid are normal. Chest wall, axillary soft tissues are normal. There is a left pectoral port noted position with subclavian entry point and tip positioned at the upper right atrium. Note made of sternotomy. The bony structures of the thoracic spine and sternum appear to be intact. CT ABDOMEN AND PELVIS: There does not appear to be peritoneal free air or free fluid on the studies. The size, configuration of the liver and spleen are normal. Internal density appears satisfactory. Normal fluid-filled gallbladder. The pancreas, adrenal glands, and bilateral kidneys appear to be satisfactory. No retroperitoneal mass or adenopathy. Mesenteric lymph nodes are unremarkable. In the pelvis, nonenlarged uterus seen. There appears to be a vaginal pessary. No adnexal masses or free fluid noted. The bladder appears to be satisfactory. Normal size, configuration of the stomach, duodenum. Small bowel loops are normal caliber. Normal ileocecal junction, and colon appearances on the study. There appear to be cholecystectomy clips present in the cecal tip region. The bony pelvic girdle and lumbar spine appear to be intact. Abdominal wall structures appear to be intact. [employer] David Kulkarni, DO - 03/20/2023 EXAMINATION: CT ANGIOGRAM CHEST ABDOMEN PELVIS HISTORY: ORDERING SYSTEM PROVIDED HISTORY: chest and abdomen pain, TECHNOLOGIST PROVIDED HISTORY: Illness/Other Reason for exam: chest and abd pain, vomiting Encounter Type: Initial Additional signs and symptoms: ORDERING SYSTEM PROVIDED DIAGNOSIS CODES: COMPARISON: None. TECHNIQUE: Dose reduction techniques were achieved by using automated exposure control and/or adjustment of mA and/or kV according to patient size and/or use of iterative reconstruction technique. Coronal and sagittal MIP (maximum intensity projection) images were performed. CT angiography chest, abdomen and pelvis studies are acquired during bolus intravenous administration of iodinated contrast material. Multiplanar reconstruction performed as well as independent 3D workstation postprocessed imaging. CONTRAST: IOPAMIDOL 370 MG IODINE/ML (76 %) INTRAVENOUS SOLUTION - 75 mL, FINDINGS: CTA: There is a tricuspid aortic valve, normal diameter aortic root. Graft material in the region of the aortic root noted should be closely clinically correlated. The aortic arch, brachiocephalic vessel origins and proximal included segments appear to be normal. There is normal caliber of the descending thoracic aorta. Abdominal aortic caliber is normal. All visceral branch origins and proximal segments appeared normal. Normal common and external iliac arteries to the level of the common femoral arteries. Central pulmonary arteries are well opacified. No filling defects identified based on these studies. CT CHEST: The heart is not enlarged. There are no enlarged mediastinal lymph nodes or abnormality of the esophagus. The lung airspaces are clear and well ventilated. Central tracheobronchial tree structures are clear. Supraclavicular soft tissues and thyroid are normal. Chest wall, axillary soft tissues are normal. There is a left pectoral port noted position with subclavian entry point and tip positioned at the upper right atrium. Note made of sternotomy. The bony structures of the thoracic spine and sternum appear to be intact. CT ABDOMEN AND PELVIS: There does not appear to be peritoneal free air or free fluid on the studies. The size, configuration of the liver and spleen are normal. Internal density appears satisfactory. Normal fluid-filled gallbladder. The pancreas, adrenal glands, and bilateral kidneys appear to be satisfactory. No retroperitoneal mass or adenopathy. Mesenteric lymph nodes are unremarkable. In the pelvis, nonenlarged uterus seen. There appears to be a vaginal pessary. No adnexal masses or free fluid noted. The bladder appears to be satisfactory. Normal size, configuration of the stomach, duodenum. Small bowel loops are normal caliber. Normal ileocecal junction, and colon appearances on the study. There appear to be cholecystectomy clips present in the cecal tip region. The bony pelvic girdle and lumbar spine appear to be intact. Abdominal wall structures appear to be intact. IMPRESSION: 1. No acute thoracoabdominal aortic pathology. No aneurysm. 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 2. No acute cardiopulmonary abnormality. No airspace opacities or pleural fluid. 3. No acute intraabdominal or pelvic pathology. Specifically, no signs of bowel or urinary tract obstruction, free air, free fluid or abnormal dilation of large or small bowel. Note made of prior appendectomy surgical clips. NTP/cdr Workstation ID: [id number] [facility] Radiology Study observation (narrative) [facility] CT Angiogram Chest Abdomen P elvisOrdered By: David Moura on 03-20-2023 [facility] Work Phone: ECG 12 Leadon 03-20-2023 Siddharth Gagnon MD 03/20/2023 4:45 PM ECG 12 Lead Date/Time: 03/20/2023 4:45 PM Performed by: Siddharth Gagnon MD Authorized by: Mariel Gagnon MD Interpreted by ED attending physician Comparison: not compared with previous ECG Rhythm: sinus rhythm and sinus bradycardia BPM: 56 Conduction: conduction normal ST Segments: ST segments normal T Waves: T waves normal normal ND interval QT Interval: 514 Clinical impression: non-specific ECG and sinus bradycardia [facility] EKGon 03-20-2023 [facility] EKG 12-leadon 03-20-2023 Atrial Rate 56 BPM [facility] P [place] 9 degrees [facility] P-R Interval 130 ms [facility] Q-T Interval 514 ms [facility] QRS Duration 108 ms [facility] QTC Calculation (Bezet) 496 ms [facility] R [place] 51 degrees [facility] T [place] 42 degrees [facility] Ventricular Rate 56 BPM [facility] Sinus bradycardia wi th sinus arrhythmia Prolonged QT Abnormal ECG ECG Cart Interpretation see physician note for interpretation. Confirmed by Zita Dozier ([id number]) on 03/20/2023 1:39:42 PM MUSE [facility] Atrial Rate 73 BPM [facility] P [place] 45 degrees [facility] P-R Interval 136 ms [facility] Q-T Interval 398 ms [facility] QRS Duration 92 ms [facility] QTC Calculation (Bezet) 438 ms [facility] R [place] 83 degrees [facility] T [place] 53 degrees [facility] Ventricular Rate 73 BPM [facility] Mariel Gagnon M D 03/21/2023 2:39 PM EKG 12-lead Date/Time: 03/20/2023 6:02 AM Performed by: Mariel Gagnon MD Authorized by: Mariel Gagnon MD Interpreted by ED attending physician Rhythm: sinus rhythm BPM: 73 QRS axis: normal Clinical impression: normal ECG MUSE [facility] Glucose (Bld) [Mass/Vol]on 0 03-20-2023 Glucose [Mass/Vol] 245 mg/dL High 65 - 99 mg/dL [facility] Interpretation and review of laboratory results Abnormal [facility] Glucose [Mass/Vol] 284 mg/dL High 65 - 99 mg/dL [facility] Interpretation and review of laboratory results Abnormal [facility] Glucose [Mass/Vol] 406 mg/dL Critically high 65 - 99 mg/d L [facility] Interpretation and review of laboratory results Abnormal [facility] Critical result acte d upon time of test. Test performed at bedside. [facility] HCG (QUALITATIVE)on 03-20-20 Beta HCG ( test) Ql Negative Negative [facility] HbA1c (Bld) [Mass fraction]O rdered By: Destinee Baez on 03-20-2023 Average glucose Estimated from glycated hemoglobin (Bld) [Mass/Vol] 160 mg/dL High 68 - 114 mg/dL [facility] Interpretation and review of laboratory results Abnormal [facility] Normal: 4.0% - 5.6% Increased risk for diabetes: 5.7% - 6.4% Diabetes: >= 6.5% Pediatrics: No established reference range Estimated average glucose: 68-114 mg/dL [facility] Hemoglobin [id number] By: Georgina Baez on 03-20-2023 HbA1c (Bld) [Mass fraction] 7.2 % High 4.0 - 5.6 % [facility] Hepatic function 2000 panelo n 03-20-2023 Albumin [Mass/Vol] 3.8 g/dL 3.2 - 5.2 g/dL [facility] ALP [Catalytic activity/Vol] 84 U/L 40 - 140 U/L [facility] ALT [Catalytic activity/Vol] 26 U/L 14 - 65 U/L [facility] AST [Catalytic activity/Vol] 13 U/L 0 - 45 U/L [facility] Bilirubin [Mass/Vol] 0.6 mg/dL 0.0 - 1 .3 mg/dL [facility] Bilirubin.conjugated [Mass/Vol] 0.1 mg/dL 0.0 - 0.4 mg/dL [facility] Interpretation and review of laboratory results Normal [facility] Protein [Mass/Vol] 7.2 g/dL 6.0 - 8.0 g/dL [facility] Light Blue Topon 03-20-2023 Extra Tube Hold for add-ons. [facility] Comment on above: Auto resulted. [facility] Lipaseon 03-20-2023 Lipase [Catalytic activity/Vol] 53 U/L Low 73 - 393 U/L [facility] Magnesium Levelon 03-20-2023 Magnesium [Mass/Vol] 1.8 mg/dL 1.6 - 2 .4 mg/dL [facility] Magnesium [Mass/Vol]on 03-20 Interpretation and review of laboratory results Normal [facility] No Panel Informationon 03-20 Interpretation and review of laboratory results Abnormal [facility] UrinalysisOrdered By: Alysha Ramos on 03-20-2023 Bacteria Auto Ql (U) None Seen None Seen /hpf [facility] Bilirubin Ql (U) Negative Negative [facility] Clarity Refractometry automated (U) Cloudy Abnormal Clear [facility] Color (U) Yellow Colorless, Yellow [facility] Glucose Auto test strip (U) [Mass/Vol] >=500 Abnormal Negative mg/dL [facility] Hemoglobin Auto test strip Ql (U) Negative Negative [facility] Interpretation and review of laboratory results Abnormal [facility] Ketones (U) [Mass/Vol] mg/dL Abnormal Negative mg/d L [facility] Leukocyte esterase Auto test strip Ql (U) Negative Negative [facility] h Mucus Auto (Urine sed) [#/Area] Rare None Seen, Rare /lpf [facility] Nitrite Auto test strip Ql (U) Negative Negative [facility] pH (U) 7.0 [pH] 5.0 - 7.0 [facility] Protein (U) [Mass/Vol] Negative Negative mg/d L [facility] RBC Auto (Urine sed) [#/Area] 1 [facility] Specific gravity (U) [Rel density] 1.023 1.005 - 1.025 [facility] Urobilinogen (U) [Mass/Vol] mg/dL NINF - 2.0 mg/dL [facility] WBC Auto (Urine sed) [#/Area] 3 [facility] Microscopic examination is performed on all urinalysis samples and only positive findings are reported. The test for blood on the chemical analytic portion of urinalysis may also be positive due to hemoglobinuria and myoglobinuria and if red blood cells are present they are quantified by microscopic examination. [facility] CNPNon 02-26-2023 CNPN Telephone (AKURFL) KATHLEEN VILLA ([id number]) 1995 F CHT Date Time Provider Department 02/26/23 VERITO BORDEN During your visit today, we recorded the following information about you: Verito Borden PA-C 02/26/2023 7:21 AM Signed This pt needs scheduled with dr gonzales or jacquelyn to. ALEX Choen 03/03/2023 10:57 AM Signed Called and confirmed with pt updated date and time. Thanks Allergies As of Date: 02/26/2023 Noted Allergy Reaction PERCOCET (OXYCODONE-ACETAMINOPH EN)01/10/2014 2 - Rash 5 - Intolerance 9 - Itching ADHESIVE TAPE (ROSINS) 09/04/2013 2 - Rash INDOMETHACIN 11/20/2003 2 - Rash KEFLEX (CEPHALEXIN) 11/12/2013 14 - Other: See Comments Comments: Makes infection worse- patient denies this on 02/25/2014 MORPHINE 08/30/2013 2 - Rash 9 - Itching ZOFRAN (ONDANSETRON HCL (PF)) 01/14/2015 14 - Other: See Comments Comments: syncope ADHESIVE 11/07/2022 2 - Rash Date Reviewed: 02/07/2023 Reviewed by: Leticia Hylton DO - Fully Assessed Reason for Visit: Appointment [186] Prescriptions as of 03/03/2023 - lubiprostone (AMITIZA) 8 mcg capsule Take 1 capsule by mouth twice daily with meals. - insulin aspart U-100 (NOVOLOG U-100 INSULIN ASPART) 100 unit/mL Use in the Insulin pump for TDD of 100 units. - prochlorperazine (COMPAZINE) 10 mg tablet Take 1 tablet by mouth every 6 hours as needed. - Lancets (MICROLET LANCET) lancets Use as instructed to test blood sugar 4 times daily. E10.65 - blood sugar diagnostic (CONTOUR NEXT TEST STRIPS) test strip Use as instructed to check blood glucose 5 times daily. E10.65 - glucose 4 gram chewable tablet Take 4 tablets by mouth as needed. - insulin glargine (LANTUS SOLOSTAR, BASAGLAR KWIKPEN) 100 unit/mL (3 mL) Inject 43 Units subcutaneously as directed in the event of Insulin pump failure. - Acetone, Urine, Test (KETONE URINE TEST) Use as directed - promethazine (PHENERGAN) 50 mg tab(s) Take 1 tablet by mouth every 8 hours as needed. - SKYRIZI 150 mg/mL injection INJECT 150 MG UNDER THE SKIN EVERY 12 WEEKS Meds Comments as of 01/09/2020: All meds reviewed before sx. Pt has aye also for after sx. CL 01/09/20 IC PNV prenata plus multivitamin Problem List As Of Date 02/26/2023 Noted Resolved Retinal detachment [H33.20] 10/26/2012 12/25/2012 SUMMARY [V999.95] 12/25/2012 Acute chest pain [R07.9] 12/25/2012 Marfan syndrome [Q87.40] 12/25/2012 DM (diabetes mellitus) (HCC) [E11.9] 12/25/2012 Gastroparesis due to DM (HCC) [E11.43, K31.84] 12/25/2012 PTSD (post-traumatic stress disorder) [F43.10] 12/25/2012 DVT prophylaxis [Z79.899] 12/25/2012 09/04/2013 DISPOSITION AND FOLLOW-UP [V999.01] 12/25/2012 09/04/2013 HTN (hypertension) [I10] Hypertension in , antepartum [O16.9] 09/19/2013 01/08/2014 GBS (group B Streptococcus carrier), +RV cultur*11/11/2013 04/16/2014 [Z34.90] 11/22/2013 04/16/2014 Diabetes mellitus in (HCC) [O24.919] 12/25/2013 04/16/2014 Diabetic ketoacidosis without coma associated w*01/08/2014 02/04/2023 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] 01/08/2014 DVT prophylaxis [Z79.899] 02/25/2014 04/16/2014 care and examination [Z39.2] 02/25/2014 04/16/2014 Near syncope [R55] 06/17/2014 Dyspnea [R06.00] 11/04/2014 Pre-op testing [Z01.818] 11/28/2014 Atelectasis [J98.11] 12/10/2014 Fluid overload [E87.70] 12/10/2014 12/15/2014 Tachycardia, unspecified [R00.0] 12/10/2014 12/12/2014 Post-operative pain [G89.18] 12/10/2014 Anxiety [F41.9] 12/10/2014 12/13/2014 Pre-existing type 1 diabetes mellitus in pregna*08/05/2015 10/03/2018 Hereditary disease in family possibly affecting*10/07/2015 Diabetes (HCC) [E11.9] 10/30/2015 Abdominal pain complicating , antepart*11/12/2015 [Z34.90] 01/28/2016 03/06/2017 Type 1 diabetes mellitus with stable proliferat*03/17/2017 Chronic idiopathic constipation [K59.04] 11/18/2021 Menstrual irregularity [N92.6] 04/18/2022 Screening for STD (sexually transmitted disease*04/18/2022 Chronic nausea [R11.0] 04/18/2022 Type 1 diabetes mellitus with hyperglycemia, wi*08/16/2022 Insulin pump status [Z96.41] 08/16/2022 Gastroparesis [K31.84] 11/23/2022 Generalized abdominal pain [R10.84] 12/08/2022 Nausea and vomiting [R11.2] 02/01/2023 Abdominal pain, suprapubic [R10.2] 02/07/2023 Encounter Status:Closed by VERITO BORDEN on 02/26/23 Normal [facility] Basic metabolic 2000 panelon 02-04-2023 Anion gap [Moles/Vol] 8 mmol/L Normal 5-16 [facility] Comment on above: Order Comment: Speci men Type: BLOOD SPECIMEN Ordering Facility: [facility] Address: [address] [place] [address] Performed By: #### 3 1201-7, 5195-3, 56793-3, SYPH #### [facility] CLIA [id number] [address] [place] [address] [place] Calcium [Mass/Vol] 8.3 mg/dL Low 8.5-10.5 [facility] Comment on above: Order Comment: Speci men Type: BLOOD SPECIMEN Ordering Facility: [facility] Address: [address] [place] [address] Performed By: #### 3 1201-7, 5195-3, 86285-8, SYPH #### [facility] CLIA [id number] [address] [place] [address] [place] Chloride [Moles/Vol] 106 mmol/L Normal 98-107 [facility] Comment on above: Order Comment: Speci men Type: BLOOD SPECIMEN Ordering Facility: [facility] Address: [address] [place] [address] Performed By: #### 3 1201-7, 5195-3, 87764-0, SYPH #### [facility] CLIA [id number] [address] [place] [address] [place] CO2 [Moles/Vol] 27 mmol/L Normal 21-32 [facility] Comment on above: Order Comment: Speci men Type: BLOOD SPECIMEN Ordering Facility: [facility] Address: [address] [place] [address] Performed By: #### 3 1201-7, 5195-3, 61813-5, SYPH #### [facility] CLIA [id number] [address] [place], [place] [id number] [place] Creatinine [Mass/Vol] 0.58 mg/dL Normal 0.51-0.95 [facility] Comment on above: Order Comment: Jon russ Type: BLOOD SPECIMEN Ordering Facility: [facility] Address: [address] [phone] Result Comment: Cleopatra ents receiving either N-Acetylcysteine (NAC) or Metamizole prior to venipuncture, may have falsely depressed results. Performed By: #### 3 1201-7, 5195-3, 61011-0, SYPH #### [facility] CLIA [id number] [address] [place] [address] [place] ESTIMATED GLOMERULAR FILTRATION RATE 127 mL/min/1.73m??? Normal >=60 [facility] Comment on above: Order Comment: Jon russ Type: BLOOD SPECIMEN Ordering Facility: [facility] Address: [address] [place], [place] [phone] Result Comment: Janett mated Glomerular Filtration Rate (eGFR) is calculated using the 2020 CKD-EPI creatinine equation. This equation utilizes serum creatinine, sex, and age as parameters. The creatinine assay has traceable calibration to isotope dilution-mass spectrometry. Refer to KDIGO guidelines for clinical interpretation. In patients with unstable renal function, e.g. those with acute kidney injury, the eGFR may not accurately reflect actual GFR. Performed By: #### 3 1201-7, 5195-3, 99213-2, SYPH #### [facility] CLIA [id number] [address] [place] [address] [place] Glucose [Mass/Vol] 271 mg/dL High 70-100 [facility] Comment on above: Order Comment: Jon russ Type: BLOOD SPECIMEN Ordering Facility: [facility] Address: [address] [phone] Result Comment: The [place] Diabetes Association (ADA) provides guidance for cutoff values for fasting glucose and random glucose. The ADA defines fasting as no caloric intake for at least 8 hours. Fasting plasma glucose results between 100 to 125 mg/dL indicate increased risk for diabetes (prediabetes). Fasting plasma glucose results greater than or equal to 126 mg/dL meet the criteria for diagnosis of diabetes. In the absence of unequivocal hyperglycemia, results should be confirmed by repeat testing. In a patient with classic symptoms of hyperglycemia or hyperglycemic crisis, random plasma glucose results greater than or equal to 200 mg/dL meet the criteria for diagnosis of diabetes. Reference: Standards of Medical Care in Diabetes 2016, [place] Diabetes Association. Diabetes Care. 2016.39(Suppl 1). Results may be falsely elevated after the administration of Sulfapyridine. Results may be falsely depressed after the administration of Sulfasalazine. Performed By: #### 3 1201-7, 5195-3, 55280-0, SYPH #### [facility] CLIA [id number] [address] [place] [address] [place] Potassium [Moles/Vol] 3.4 mmol/L Low 3.5-5.1 [facility] Comment on above: Order Comment: Jon russ Type: BLOOD SPECIMEN Ordering Facility: [facility] Address: [address] [place] [address] Performed By: #### 3 1201-7, 5195-3, 77093-9, SYPH #### [facility] CLIA [id number] [address] [place] [address] [place] Sodium [Moles/Vol] 141 mmol/L Normal 136-145 [facility] Comment on above: Order Comment: Jon russ Type: BLOOD SPECIMEN Ordering Facility: [facility] Address: [address] [place] [address] Performed By: #### 3 1201-7, 5195-3, 25481-2, SYPH #### [facility] CLIA [id number] [address] [place] [address] [place] Urea nitrogen [Mass/Vol] 6 mg/dL Low 7-26 [facility] Comment on above: Order Comment: Jon russ Type: BLOOD SPECIMEN Ordering Facility: [facility] Address: [address] [place] [address] Performed By: #### 3 1201-7, 5195-3, 91170-3, SYPH #### [facility] CLIA [id number] [address] [place] [address] [place] Anion gap [Moles/Vol] 7 mmol/L Normal 5-16 [facility] Comment on above: Order Comment: Speci men Type: BLOOD SPECIMEN Ordering Facility: [facility] Address: [address] [address] Performed By: #### 3 1201-7, 5195-3, 83141-9, SYPH #### [facility] CLIA [id number] [address] [place] [address] [place] Calcium [Mass/Vol] 8.0 mg/dL Low 8.5-10.5 [facility] Comment on above: Order Comment: Speci men Type: BLOOD SPECIMEN Ordering Facility: [facility] Address: [address] [place] [address] Performed By: #### 3 1201-7, 5195-3, 17763-0, SYPH #### [facility] CLIA [id number] [address] [place] [address] [place] Chloride [Moles/Vol] 106 mmol/L Normal 98-107 [facility] Comment on above: Order Comment: Speci men Type: BLOOD SPECIMEN Ordering Facility: [facility] Address: [address] [place] [address] Performed By: #### 3 1201-7, 5-3, 21729-0, SYPH #### [facility] CLIA [id number] [address] [place] [address] [place] CO2 [Moles/Vol] 27 mmol/L Normal 21-32 [facility] Comment on above: Order Comment: Speci men Type: BLOOD SPECIMEN Ordering Facility: [facility] Address: [address] [place] [address] Performed By: #### 3 1201-7, 5195-3, 24752-6, SYPH #### [facility] CLIA [id number] [address] [place] [address] [place] Creatinine [Mass/Vol] 0.61 mg/dL Normal 0.51-0.95 [facility] Comment on above: Order Comment: Speci men Type: BLOOD SPECIMEN Ordering Facility: [facility] Address: [address] [phone] Result Comment: Cleopatra ents receiving either N-Acetylcysteine (NAC) or Metamizole prior to venipuncture, may have falsely depressed results. Performed By: #### 3 1201-7, 5195-3, 65727-7, SYPH #### [facility] CLIA [id number] [address] [place] [address] [place] ESTIMATED GLOMERULAR FILTRATION RATE 125 mL/min/1.73m??? Normal >=60 [facility] Comment on above: Order Comment: Jon russ Type: BLOOD SPECIMEN Ordering Facility: [facility] Address: [address] [place] [address] Result Comment: Janett mated Glomerular Filtration Rate (eGFR) is calculated using the 2020 CKD-EPI creatinine equation. This equation utilizes serum creatinine, sex, and age as parameters. The creatinine assay has traceable calibration to isotope dilution-mass spectrometry. Refer to KDIGO guidelines for clinical interpretation. In patients with unstable renal function, e.g. those with acute kidney injury, the eGFR may not accurately reflect actual GFR. Performed By: #### 3 1201-7, 5195-3, 17371-6, SYPH #### [facility] CLIA [id number] [address] [place] [address] [place] Glucose [Mass/Vol] 269 mg/dL High 70-100 [facility] Comment on above: Order Comment: Jon russ Type: BLOOD SPECIMEN Ordering Facility: [facility] Address: [address] [phone] Result Comment: The [place] Diabetes Association (ADA) provides guidance for cutoff values for fasting glucose and random glucose. The ADA defines fasting as no caloric intake for at least 8 hours. Fasting plasma glucose results between 100 to 125 mg/dL indicate increased risk for diabetes (prediabetes). Fasting plasma glucose results greater than or equal to 126 mg/dL meet the criteria for diagnosis of diabetes. In the absence of unequivocal hyperglycemia, results should be confirmed by repeat testing. In a patient with classic symptoms of hyperglycemia or hyperglycemic crisis, random plasma glucose results greater than or equal to 200 mg/dL meet the criteria for diagnosis of diabetes. Reference: Standards of Medical Care in Diabetes 2016, [place] Diabetes Association. Diabetes Care. 2016.39(Suppl 1). Results may be falsely elevated after the administration of Sulfapyridine. Results may be falsely depressed after the administration of Sulfasalazine. Performed By: #### 3 1201-7, 5195-3, 82181-0, SYPH #### [facility] CLIA [id number] [address] [place] [address] [place] Potassium [Moles/Vol] 3.5 mmol/L Normal 3.5-5.1 [facility] Comment on above: Order Comment: Belindai jeb Type: BLOOD SPECIMEN Ordering Facility: [facility] Address: [address] [place] [address] Performed By: #### 3 1201-7, 5195-3, 45516-9, SYPH #### [facility] CLIA [id number] [address] [place] [address] [place] Sodium [Moles/Vol] 140 mmol/L Normal 136-145 [facility] Comment on above: Order Comment: Belindai jeb Type: BLOOD SPECIMEN Ordering Facility: [facility] Address: [address] [place] [address] Performed By: #### 3 1201-7, 5195-3, 97822-9, SYPH #### [facility] CLIA [id number] [address] [place] [address] [place] Urea nitrogen [Mass/Vol] 6 mg/dL Low 7- [facility] Comment on above: Order Comment: Belindai jeb Type: BLOOD SPECIMEN Ordering Facility: [facility] Address: [address] [address] Performed By: #### 3 1201-7, 5195-3, 32834-7, SYPH #### [facility] CLIA [id number] [address] [place] [address] [place] CBC W Auto Differential pane l (Bld)on 02-04-2023 Basophils (Bld) [#/Vol] 0.04 10*3/uL Normal <0.11 [facility] Comment on above: Order Comment: Speci men Type: BLOOD SPECIMEN Ordering Facility: [facility] Address: [address] [address] Performed By: #### 3 1201-7, 5194-3, 97646-4, SYPH #### [facility] CLIA [id number] [address] [place] [address] [place] Basophils/100 WBC (Bld) 0.4 % Normal [facility] Comment on above: Order Comment: Speci men Type: BLOOD SPECIMEN Ordering Facility: [facility] Address: [address] [address] Performed By: #### 3 1201-7, 5194-3, 34888-1, SYPH #### [facility] CLIA [id number] [address] [place] [address] [place] Differential cell count method Nom (Bld) Auto Normal [facility] Comment on above: Order Comment: Speci men Type: BLOOD SPECIMEN Ordering Facility: [facility] Address: [address] [address] Performed By: #### 3 1201-7, 5194-3, 05516-6, SYPH #### [facility] CLIA [id number] [address] [place] [address] [place] Eosinophils (Bld) [#/Vol] 0.04 10*3/uL Normal <0.46 [facility] Comment on above: Order Comment: Speci men Type: BLOOD SPECIMEN Ordering Facility: [facility] Address: [address] [address] Performed By: #### 3 1201-7, 5-3, 30649-2, SYPH #### [facility] CLIA [id number] [address] [place] [address] [place] Eosinophils/100 WBC (Bld) 0.4 % Normal [facility] Comment on above: Order Comment: Speci men Type: BLOOD SPECIMEN Ordering Facility: [facility] Address: [address] [address] Performed By: #### 3 1201-7, 5194-3, 73160-5, SYPH #### [facility] CLIA [id number] [address] [place] [address] [place] Erythrocyte distribution width (RBC) [Ratio] 13.3 % Normal 11.5-15.0 [facility] Comment on above: Order Comment: Speci men Type: BLOOD SPECIMEN Ordering Facility: [facility] Address: [address] [address] Performed By: #### 3 1201-7, 5-3, 24495-2, SYPH #### [facility] CLIA [id number] [address] [place] [address] [place] Hematocrit (Bld) [Volume fraction] 34.5 % Low 36.0-46.0 [facility] Comment on above: Order Comment: Speci men Type: BLOOD SPECIMEN Ordering Facility: [facility] Address: [address] [place] [address] Performed By: #### 3 1201-7, 5194-3, 08285-5, SYPH #### [facility] CLIA [id number] [address] [place] [address] [place] Hemoglobin (Bld) [Mass/Vol] 11.6 g/dL Normal 11.5-15.5 [facility] Comment on above: Order Comment: Speci men Type: BLOOD SPECIMEN Ordering Facility: [facility] Address: [address] [address] Performed By: #### 3 1201-7, 5194-3, 24061-5, SYPH #### [facility] CLIA [id number] [address] [place] [address] [place] Immature granulocytes (Bld) [#/Vol] 0.10 10*3/uL High <0.10 [facility] Comment on above: Order Comment: Speci men Type: BLOOD SPECIMEN Ordering Facility: [facility] Address: [address] [place] [address] Performed By: #### 3 1201-7, 5194-3, 95421-0, SYPH #### [facility] CLIA [id number] [address] [place] [address] [place] Immature granulocytes/100 WBC (Bld) 0.9 % Normal [facility] Comment on above: Order Comment: Speci men Type: BLOOD SPECIMEN Ordering Facility: [facility] Address: [address] [place] [address] Performed By: #### 3 1201-7, 5195-3, 34572-6, SYPH #### [facility] CLIA [id number] [address] [place] [address] [place] Lymphocytes (Bld) [#/Vol] 2.41 10*3/uL Normal 1.00-4.00 [facility] Comment on above: Order Comment: Speci men Type: BLOOD SPECIMEN Ordering Facility: [facility] Address: [address] [place] [address] Performed By: #### 3 1201-7, 5-3, 92558-8, SYPH #### [facility] CLIA [id number] [address] [place] [address] Lymphocytes/100 WBC (Bld) 22.3 % Normal [facility] Comment on above: Order Comment: Speci men Type: BLOOD SPECIMEN Ordering Facility: [facility] Address: [address] [place] [address] Performed By: #### 3 1201-7, 5195-3, 19236-7, SYPH #### [facility] CLIA [id number] [address] [place] [address] [place] MCH (RBC) [Entitic mass] 29.1 pg Normal 26.0-34.0 [facility] Comment on above: Order Comment: Speci men Type: BLOOD SPECIMEN Ordering Facility: [facility] Address: [address] [place] [address] Performed By: #### 3 1201-7, 5195-3, 56053-6, SYPH #### [facility] CLIA [id number] [address] [place] [address] [place] MCHC (RBC) [Mass/Vol] 33.6 g/dL Normal 30.5-36.0 [facility] Comment on above: Order Comment: Speci men Type: BLOOD SPECIMEN Ordering Facility: [facility] Address: [address] [place] [address] Performed By: #### 3 1201-7, 5195-3, 90235-5, SYPH #### [facility] CLIA [id number] [address] [place] [address] [place] MCV (RBC) [Entitic vol] 86.5 fL Normal 80.0-100.0 [facility] Comment on above: Order Comment: Speci men Type: BLOOD SPECIMEN Ordering Facility: [facility] Address: [address] [place] [address] Performed By: #### 3 1201-7, 5195-3, 99732-3, SYPH #### [facility] CLIA [id number] [address] [place] [address] [place] Monocytes (Bld) [#/Vol] 0.70 10*3/uL Normal <0.87 [facility] Comment on above: Order Comment: Speci men Type: BLOOD SPECIMEN Ordering Facility: [facility] Address: [address] [place] [address] Performed By: #### 3 1201-7, 5195-3, 26184-6, SYPH #### [facility] CLIA [id number] [address] [place] [address] [place] Monocytes/100 WBC (Bld) 6.5 % Normal [facility] Comment on above: Order Comment: Speci men Type: BLOOD SPECIMEN Ordering Facility: [facility] Address: [address] [place] [address] Performed By: #### 3 1201-7, 5-3, 28268-5, SYPH #### [facility] CLIA [id number] [address] [place] [address] [facility] [place] Neutrophils (Bld) [#/Vol] 7.54 10*3/uL High 1.45-7.50 [facility] Comment on above: Order Comment: Speci men Type: BLOOD SPECIMEN Ordering Facility: [facility] Address: [address] [place] [address] Performed By: #### 3 1201-7, 5-3, 55172-5, SYPH #### [facility] CLIA [id number] [address] [place] [address] [place] Neutrophils/100 WBC (Bld) 69.5 % Normal [facility] Comment on above: Order Comment: Speci men Type: BLOOD SPECIMEN Ordering Facility: [facility] Address: [address] [address] Performed By: #### 3 1201-7, 5194-3, 04630-4, SYPH #### [facility] CLIA [id number] [address] [place] [address] [place] Nucleated RBC (Bld) [#/Vol] 10*3/uL Normal <0.01 [facility] Comment on above: Order Comment: Speci men Type: BLOOD SPECIMEN Ordering Facility: [facility] Address: [address] [place] [address] Performed By: #### 3 1201-7, 3, 79066-2, SYPH #### [facility] CLIA [id number] [address] [place] [address] [place] Nucleated RBC/100 WBC (Bld) [Ratio] 0.0 /100 WBC Normal [facility] Comment on above: Order Comment: Speci men Type: BLOOD SPECIMEN Ordering Facility: [facility] Address: [address] [place] [address] Performed By: #### 3 1201-7, 5-3, 80414-1, SYPH #### [facility] CLIA [id number] [address] [place] [address] [place] Platelet mean volume (Bld) [Entitic vol] 11.7 fL Normal 9.0-12.7 [facility] Comment on above: Order Comment: Speci men Type: BLOOD SPECIMEN Ordering Facility: [facility] Address: [address] [place], [place] [id number] Performed By: #### 3 1201-7, 5195-3, 11710-3, SYPH #### [facility] CLIA [id number] [address] [place] [address] [place] Platelets (Bld) [#/Vol] 163 10*3/uL Normal 150-400 [facility] Comment on above: Order Comment: Speci men Type: BLOOD SPECIMEN Ordering Facility: [facility] Address: [address] [place], [place] [address] Performed By: #### 3 1201-7, 5195-3, 14723-3, SYPH #### [facility] CLIA [id number] [address] [place] [address] [place] RBC (Bld) [#/Vol] 3.99 10*6/uL Normal 3.90-5.20 [facility] Comment on above: Order Comment: Speci men Type: BLOOD SPECIMEN Ordering Facility: [facility] Address: [address] [place], [place] [id number] Performed By: #### 3 1201-7, 5195-3, 90370-3, SYPH #### [facility] CLIA [id number] [address] [place] [address] [place] WBC (Bld) [#/Vol] 10.83 10*3/uL Normal 3.70-11.00 [facility] Comment on above: Order Comment: Speci men Type: BLOOD SPECIMEN Ordering Facility: [facility] Address: [address] [place], [place] [address] Performed By: #### 3 1201-7, 5195-3, 58726-4, SYPH #### [facility] CLIA [id number] [address] [place] [address] [place] CNDSon 02-04-2023 CNDS HNO ID: [id number] Author: David Burnett DO Service: Hospital Medicine Author Type: Physician Type: Discharge Summary Filed: 02/04/2023 2:30 PM Note Text: DISCHARGE SUMMARY PATIENT NAME: Kathleen Villa ADMISSION DATE: 01/31/2023 DISCHARGE DATE: 02/04/2023 ATTENDING PHYSICIAN: David Burnett DO Code Status: Full Code Highest Readmission Risk Score: 16 The 30 day readmissions risk score is derived from an internally validated risk model which evaluates patient level characteristics, utilization history, medication orders and lab results up until the day of discharge. Patients with a score of 40 or above are considered highest risk for readmission. Specific patient level drivers will be listed at the bottom of the summary. SPECIALITY SERVICES SEEN DURING HOSPITALIZATION: hospitalist, teletypist CHIEF COMPLAINT: DKA REASON FOR HOSPITALIZATION: DKA, gastroparesis FINAL DIAGNOSIS: DKA, gastroparesis OPERATIONS/PROCEDURES DURING HOSPITALIZATION: HOSPITAL COURSE: 27-year-old white female who presented 2 days ago on 01/31 secondary to nausea and vomiting at home. Patient has a known history of diabetic gastroparesis. She follows in [facility]. She was admitted to [place]. Unfortunately she has not been tolerating p.o. intake with the exception of some ice chips. ICU service was contacted by Dr. Deedee Allen of the hospitalist service today given concerns for evolving DKA. Patient's serum bicarbonate level has decreased from 15-12. A BMP is currently pending. Anion gap was 18 as of 2:00 this morning. Patient's last blood sugar was 421. Patient typically is on the insulin pump however this had a critical value. She was transitioned to Lantus subcutaneous dosing. 3 L of fluid was administered. However the patient continues to backslide. Thus she will be admitted to ICU for further ongoing aggressive crystalloid volume resuscitation and insulin management. Fpatient would be started on insulin drip while in the ICU. Anion gap would close and the patient would be transitioined to a diet. Blood sugars would remain stable once restarting her insulin pump. She will cotninue following with her personal steward dishwasher outpatient. Follow up with PCP in one week. Vital signs were stable on discharge. Patient understood and agreed with discharge plan. ADMISSION PHYSICAL EXAM: Gen: This is a 27-year-old white female alert awake appears fairly miserable drawnout appearance. Slowly eating ice chips HEENT: Normocephalic, Atraumatic, Pupils Equally Reactive to light and accomodation, moist mucous membranes, Neck: Supple trachea midline. Lungs: Lungs are clear throughout Heart: Regular Rate and Rhythm, Normal S1 and S2, no murmurs Abd: Soft, Nontender and nodistended, Positive Bowel Sounds Ext: No edema. Palpable pulses. No asymmetry no cyanosis ASSESSMENT AND PLAN: IMPRESSION: -DKA -Metabolic acidosis secondary to DKA -Diabetic gastroparesis -Leukocytosis suspected leukemoid reaction. No left shift. Procalcitonin only 0.33 PLAN: -We will start insulin drip. Every hour blood sugars. Every 6 hours BMP. We will give 2 L of LR now. Start D5 half-normal saline given blood sugars 182 -Continue home Reglan 10 mg every 6 hours as at home -Sips and chips. Replace magnesium -A.m. labs PATIENT CONDITION AT DISCHARGE: Stable DISCHARGE DISPOSITION: Home VITALS: Patient Vitals for the past 12 hrs: BP Temp Temp src Pulse Resp SpO2 Weight 02/04/23 0834 118/56 37.2 ?C (99 ?F) Oral 66 18 98 % 84.3 kg (185 lb 14.4 oz) INFORMATION PROVIDED TO PATIENT: ALLERGIES Allergen Reactions Percocet [Oxycodone* Rash, Intolerance, Itching Adhesive Tape (Lidia* Rash Indomethacin Rash Keflex [Cephalexin] Other: See Comments Makes infection worse- patient denies this on 02/25/2014 Morphine Rash, Itching Zofran [Ondansetron* Other: See Comments syncope Adhesive Rash DISCHARGE MEDICATION: Current Discharge Medication List CONTINUE these medications which have NOT CHANGED insulin aspart U-100 (NOVOLOG U-100 INSULIN ASPART) 100 unit/mL Use in the Insulin pump for TDD of 100 units. Qty: 90 mL Refills: 1 Associated Diagnoses:Type 1 diabetes mellitus with hyperglycemia, with long-term current use of insulin ([facility]); Insulin pump status prochlorperazine (COMPAZINE) 10 mg Take 10 mg by mouth every 6 hours as needed. Qty: 15 tablet Refills: 0 Lancets (MICROLET LANCET) lancets Use as instructed to test blood sugar 4 times daily. E10.65 Qty: 400 Each Refills: 3 Associated Diagnoses:Type 1 diabetes mellitus with hyperglycemia, with long-term current use of insulin ([facility]); Insulin pump status blood sugar diagnostic (CONTOUR NEXT TEST STRIPS) test strip Use as instructed to check blood glucose 5 times daily. E10.65 Qty: 500 Strip Refills: 3 Associated Diagnoses:Type 1 diabetes mellitus with hyperglycemia, with long-term current use of insulin ([facility]); Insulin p (more content not included)... [facility] ALLIED HEALTHon 02-03-2023 ALLIED HEALTH HNO ID: [id number] Author: Chaplain Craig Service: Spiritual Care Author Type: Tip Puncher Type: Allied Health Filed: 02/03/2023 11:39 AM Note Text: SPIRITUAL CARE PROGRESS NOTE SERVICE DATE: 02/03/2023 SERVICE TIME: 10:35 am While rounding in ICU, attempted to provided spiritual presence to patient. Patient was busy . No family was present. A hand plug shaper will follow up. To contact the Spiritual Care Department: Please call [phone]. SIGNATURE: Chaplain Craig PATIENT NAME: Kathleen Villa DATE: February 03, 2023 TIME: 11:37 AM PAGER/CONTACT #: [phone] [facility] Basic metabolic 2000 panelon 02-03-2023 Anion gap [Moles/Vol] 9 mmol/L Normal 5-16 [facility] Comment on above: Order Comment: Speci men Type: BLOOD SPECIMEN Ordering Facility: [facility] Address: [address] [place], [place] [phone] Performed By: #### 3 1201-7, 5195-3, 02655-6, SYPH #### [facility] CLIA [id number] [address] [place] [address] [place] Calcium [Mass/Vol] 8.1 mg/dL Low 8.5-10.5 [facility] Comment on above: Order Comment: Speci men Type: BLOOD SPECIMEN Ordering Facility: [facility] Address: [address] [place], [place] [phone] Performed By: #### 3 1201-7, 5195-3, 94244-2, SYPH #### [facility] CLIA [id number] [address] [place] [address] [place] Chloride [Moles/Vol] 112 mmol/L High 98-107 [facility] Comment on above: Order Comment: Speci men Type: BLOOD SPECIMEN Ordering Facility: [facility] Address: [address] [place], [place] [phone] Performed By: #### 3 1201-7, 5195-3, 91095-1, SYPH #### [facility] CLIA [id number] [address] [place] [address] [place] CO2 [Moles/Vol] 22 mmol/L Normal 21-32 [facility] Comment on above: Order Comment: Speci men Type: BLOOD SPECIMEN Ordering Facility: [facility] Address: [address] [place], [place] [phone] Performed By: #### 3 1201-7, 5195-3, 26635-5, SYPH #### [facility] CLIA [id number] [address] [place] [address] [place] Creatinine [Mass/Vol] 0.57 mg/dL Normal 0.51-0.95 [facility] Comment on above: Order Comment: Speci men Type: BLOOD SPECIMEN Ordering Facility: [facility] Address: [address] [place], [place] [address] Result Comment: Cleopatra ents receiving either N-Acetylcysteine (NAC) or Metamizole prior to venipuncture, may have falsely depressed results. Performed By: #### 3 1201-7, 5195-3, 96445-0, SYPH #### [facility] CLIA [id number] [address] [place] [address] OF [facility] ESTIMATED GLOMERULAR FILTRATION RATE 127 mL/min/1.73m??? Normal >=60 [facility] Comment on above: Order Comment: Speci men Type: BLOOD SPECIMEN Ordering Facility: [facility] Address: [address] [place], [place] [address] Result Comment: Janett mated Glomerular Filtration Rate (eGFR) is calculated using the 2020 CKD-EPI creatinine equation. This equation utilizes serum creatinine, sex, and age as parameters. The creatinine assay has traceable calibration to isotope dilution-mass spectrometry. Refer to KDIGO guidelines for clinical interpretation. In patients with unstable renal function, e.g. those with acute kidney injury, the eGFR may not accurately reflect actual GFR. Performed By: #### 3 1201-7, 5195-3, 57291-1, SYPH #### [facility] CLIA [id number] [address] [place], [place] [address] [place] Glucose [Mass/Vol] 135 mg/dL High 70-100 [facility] Comment on above: Order Comment: Speci men Type: BLOOD SPECIMEN Ordering Facility: [facility] Address: [address] [id number] Result Comment: The [place] Diabetes Association (ADA) provides guidance for cutoff values for fasting glucose and random glucose. The ADA defines fasting as no caloric intake for at least 8 hours. Fasting plasma glucose results between 100 to 125 mg/dL indicate increased risk for diabetes (prediabetes). Fasting plasma glucose results greater than or equal to 126 mg/dL meet the criteria for diagnosis of diabetes. In the absence of unequivocal hyperglycemia, results should be confirmed by repeat testing. In a patient with classic symptoms of hyperglycemia or hyperglycemic crisis, random plasma glucose results greater than or equal to 200 mg/dL meet the criteria for diagnosis of diabetes. Reference: Standards of Medical Care in Diabetes 2016, [place] Diabetes Association. Diabetes Care. 2016.39(Suppl 1). Results may be falsely elevated after the administration of Sulfapyridine. Results may be falsely depressed after the administration of Sulfasalazine. Performed By: #### 3 1201-7, 5195-3, 43621-2, SYPH #### [facility] CLIA [id number] [address] [place] [address] [place] Potassium [Moles/Vol] 4.0 mmol/L Normal 3.5-5.1 [facility] Comment on above: Order Comment: Speci men Type: BLOOD SPECIMEN Ordering Facility: [facility] Address: [place] [address] Performed By: #### 3 1201-7, 5195-3, 86837-7, SYPH #### [facility] CLIA [id number] [address] [place] [address] [place] Sodium [Moles/Vol] 143 mmol/L Normal 136-145 [facility] Comment on above: Order Comment: Speci men Type: BLOOD SPECIMEN Ordering Facility: [facility] Address: [place] [address] Performed By: #### 3 1201-7, 5195-3, 02641-8, SYPH #### [facility] CLIA [id number] [address] [place], [place] [address] [facility] Urea nitrogen [Mass/Vol] 8 mg/dL Normal - [facility] Comment on above: Order Comment: Speci men Type: BLOOD SPECIMEN Ordering Facility: [facility] Address: [place] [address] Performed By: #### 3 1201-7, 5195-3, 25543-9, SYPH #### [facility] CLIA [id number] [address] [place], [place] [address] [facility] CASE MGT INIT ASSESon 2022 CASE MGT INIT ASSES HNO ID: [id number] Author: MICHELLE Tobar Service: Social Work Author Type: Grape Cutter Type: Care Mgt Initial Assessment Filed: 02/03/2023 2:35 PM Note Text: CARE MANAGEMENT: ASSESSMENT AND DISCHARGE PLAN SERVICE DATE: February 03, 2023 SERVICE TIME: 2:31 PM PCP: Vivi Smith MD Primary Contact: Extended Emergency Contact Information Primary Emergency Contact: Rene Christie [place] Relation: Significant other Admission Status: Inpatient Insurance [facility] Discharge Planning requested by: Per Department Practice Potential Transition Plans Home Advance Directives Current Advance Directive: None Vice President Regulatory Attempted to Assist with AD Completion: Yes Action: Education Provided;Patient Unwilling Current Living Arrangements and Support Lives with: Spouse/significant other, Other person(s) Rene (CANDICE) and his daughter and her fiance Type of Residence: Private Residence (House) Does the patient have to climb stairs at home?: Yes;stairs outside the home;stairs within the home Support: Family members, Spouse/significant other How do you manage to accomplish the following: Independent: Ambulation;Bathe/Showe r;Dress;Meals/Meal Prep;Going to the bathroom;Medication Management;Transportat ion to appointments/community Current Services/Equipment Current Post-Acute Service(s): None Discharge Planning Patient Goal(s): Be able to go home, General wellness [place] of Choice Explained: [place] of Choice Given: No Reason Not Given: No placements necessary Are you interested in bedside delivery of your medications? No Discharge Planning Participant(s): Patient Patient/Family Comments: none Caregiver Assessment: Caregiver is ready, willing and able to meet the patient's needs as recommended by the inter-professional team: Yes Name of Caregiver: Rene Transport at Discharge: Needs Prior to Discharge: Needs Prior to Discharge: To Be Determined Post-Acute Discharge Plan: Patient admitted to ICU for DKA, metabolic acidosis, diabetic gastroenteritis, leukocytosis, +n/v. Patient on RA, insulin gtt, q1h BS checks, IVF, IV reglan and Zofran, NPO, D5 1/2 at 150. Met with patient to complete IA. Patient lives at home with boyfriend Rene, his daughter and her fiance, independent with ADLs and IADLs prior to admission, does not drive, no DME at baseline, however patient's insulin pump malfunctioned resulting in hospital admission. No issues with insurance coverage or obtaining prescriptions. Patient active with PCP every 3-6 month and has several specialists she sees just as often. Plan to return home when medically stable. No needs identified at this time. Patient reports Rene will provide transport at hi. SIGNATURE: MICHELLE Tobar PATIENT NAME: Kathleen Villa DATE: February 03, 2023 TIME: 2:31 PM CONTACT #: [phone] [facility] CBC W Auto Differential pane l (Bld)on 02-03-2023 Basophils (Bld) [#/Vol] 0.05 10*3/uL Normal <0.11 [facility] Comment on above: Order Comment: Speci men Type: BLOOD SPECIMEN Ordering Facility: [facility] Address: [place] [address] Performed By: #### 3 1201-7, 5195-3, 58972-8, SYPH #### [facility] CLIA [id number] [address] [place] [address] [place] Basophils/100 WBC (Bld) 0.3 % [facility] Comment on above: Order Comment: Speci men Type: BLOOD SPECIMEN Ordering Facility: [facility] Address: [address] [address] Performed By: #### 3 1201-7, 5-3, 60928-8, SYPH #### [facility] CLIA [id number] [address] [place] [address] [place] Differential cell count method Nom (Bld) Auto Normal [facility] Comment on above: Order Comment: Speci men Type: BLOOD SPECIMEN Ordering Facility: [facility] Address: [address] [address] Performed By: #### 3 1201-7, 5-3, 28918-7, SYPH #### [facility] CLIA [id number] [address] [place] [address] [place] Eosinophils (Bld) [#/Vol] 10*3/uL Normal <0.46 [facility] Comment on above: Order Comment: Speci men Type: BLOOD SPECIMEN Ordering Facility: [facility] Address: [address] [address] Performed By: #### 3 1201-7, 5-3, 95361-9, SYPH #### [facility] CLIA [id number] [address] [place] [address] [place] Eosinophils/100 WBC (Bld) 0.0 % Normal [facility] Comment on above: Order Comment: Speci men Type: BLOOD SPECIMEN Ordering Facility: [facility] Address: [address] [address] Performed By: #### 3 1201-7, 5-3, 41106-8, SYPH #### [facility] CLIA [id number] [address] [place] [address] [place] Erythrocyte distribution width (RBC) [Ratio] 13.5 % Normal 11.5-15.0 [facility] Comment on above: Order Comment: Speci men Type: BLOOD SPECIMEN Ordering Facility: [facility] Address: [address] [address] Performed By: #### 3 1201-7, 5195-3, 64940-5, SYPH #### [facility] CLIA [id number] [address] [place] [address] [place] Hematocrit (Bld) [Volume fraction] 37.7 % Normal 36.0-46.0 [facility] Comment on above: Order Comment: Speci men Type: BLOOD SPECIMEN Ordering Facility: [facility] Address: [address] [place] [address] Performed By: #### 3 1201-7, 5195-3, 98370-0, SYPH #### [facility] CLIA [id number] [address] [place] [address] [place] Hemoglobin (Bld) [Mass/Vol] 11.8 g/dL Normal 11.5-15.5 [facility] Comment on above: Order Comment: Speci men Type: BLOOD SPECIMEN Ordering Facility: [facility] Address: [address] Performed By: #### 3 1201-7, 5-3, 20075-9, SYPH #### [facility] CLIA [id number] [address] [place] [address] [place] Immature granulocytes (Bld) [#/Vol] 0.16 10*3/uL High <0.10 [facility] Comment on above: Order Comment: Speci men Type: BLOOD SPECIMEN Ordering Facility: [facility] Address: [address] [place] [address] Performed By: #### 3 1201-7, 5195-3, 48704-8, SYPH #### [facility] CLIA [id number] [address] [place] [address] [place] Immature granulocytes/100 WBC (Bld) 1.0 % Normal [facility] Comment on above: Order Comment: Speci men Type: BLOOD SPECIMEN Ordering Facility: [facility] Address: [address] Performed By: #### 3 1201-7, 5195-3, 89007-3, SYPH #### [facility] CLIA [id number] [address] [place] [address] [place] Lymphocytes (Bld) [#/Vol] 1.76 10*3/uL Normal 1.00-4.00 [facility] Comment on above: Order Comment: Speci men Type: BLOOD SPECIMEN Ordering Facility: [facility] Address: [address] [place] [address] Performed By: #### 3 1201-7, 5194-3, 23695-9, SYPH #### [facility] CLIA [id number] [address] [place] [address] [place] Lymphocytes/100 WBC (Bld) 10.7 % Normal [facility] Comment on above: Order Comment: Speci men Type: BLOOD SPECIMEN Ordering Facility: [facility] Address: [address] [place] [address] Performed By: #### 3 1201-7, 5194-3, , SYPH #### [facility] CLIA [id number] [address] [place] [address] [place] MCH (RBC) [Entitic mass] 29.7 pg Normal 26.0-34.0 [facility] Comment on above: Order Comment: Speci men Type: BLOOD SPECIMEN Ordering Facility: [facility] Address: [address] [place] [address] Performed By: #### 3 1201-7, 5194-3, , SYPH #### [facility] CLIA [id number] [address] [place] [address] [place] MCHC (RBC) [Mass/Vol] 31.3 g/dL Normal 30.5-36.0 [facility] Comment on above: Order Comment: Speci men Type: BLOOD SPECIMEN Ordering Facility: [facility] Address: [address] [place] [address] Performed By: #### 3 1201-7, 5194-3, 94165-9, SYPH #### [facility] CLIA [id number] [address] [place] [address] [place] MCV (RBC) [Entitic vol] 95.0 fL Normal 80.0-100.0 [facility] Comment on above: Order Comment: Speci men Type: BLOOD SPECIMEN Ordering Facility: [facility] Address: [address] [place] [address] Performed By: #### 3 1201-7, 5195-3, 91487-5, SYPH #### [facility] CLIA [id number] [address] [place] [address] [place] Monocytes (Bld) [#/Vol] 0.77 10*3/uL Normal <0.87 [facility] Comment on above: Order Comment: Speci men Type: BLOOD SPECIMEN Ordering Facility: [facility] Address: [address] [place] [address] Performed By: #### 3 1201-7, 5195-3, 36095-0, SYPH #### [facility] CLIA [id number] [address] [place] [address] [place] Monocytes/100 WBC (Bld) 4.7 % Normal [facility] Comment on above: Order Comment: Speci men Type: BLOOD SPECIMEN Ordering Facility: [facility] Address: [address] [place] [address] Performed By: #### 3 1201-7, 5195-3, 80420-6, SYPH #### [facility] CLIA [id number] [address] [place], [place] [address] [place] Neutrophils (Bld) [#/Vol] 13.71 10*3/uL High 1.45-7.50 [facility] Comment on above: Order Comment: Speci men Type: BLOOD SPECIMEN Ordering Facility: [facility] Address: [address] [place] [address] Performed By: #### 3 1201-7, 5195-3, 18200-4, SYPH #### [facility] CLIA [id number] [address] [place] [address] [place] Neutrophils/100 WBC (Bld) 83.3 % Normal [facility] Comment on above: Order Comment: Speci men Type: BLOOD SPECIMEN Ordering Facility: [facility] Address: [address] [place] [address] Performed By: #### 3 1201-7, 5-3, 15931-2, SYPH #### [facility] CLIA [id number] [address] [place] [address] [place] Nucleated RBC (Bld) [#/Vol] 10*3/uL Normal <0.01 [facility] Comment on above: Order Comment: Speci men Type: BLOOD SPECIMEN Ordering Facility: [facility] Address: [address] [place] [address] Performed By: #### 3 1201-7, 5-3, 63094-0, SYPH #### [facility] CLIA [id number] [address] [place] [address] [place] Nucleated RBC/100 WBC (Bld) [Ratio] 0.0 /100 WBC Normal [facility] Comment on above: Order Comment: Speci men Type: BLOOD SPECIMEN Ordering Facility: [facility] Address: [address] [place] [address] Performed By: #### 3 1201-7, 5-3, 49416-7, SYPH #### [facility] CLIA [id number] [address] [place] [address] [place] Platelet mean volume (Bld) [Entitic vol] 12.4 fL Normal 9.0-12.7 [facility] Comment on above: Order Comment: Speci men Type: BLOOD SPECIMEN Ordering Facility: [facility] Address: [address] [place] [address] Performed By: #### 3 1201-7, 5194-3, 92380-4, SYPH #### [facility] CLIA [id number] [address] [place] [address] [place] Platelets (Bld) [#/Vol] 144 10*3/uL Low 150-400 [facility] Comment on above: Order Comment: Speci men Type: BLOOD SPECIMEN Ordering Facility: [facility] Address: [address] [place], [place] [id number] Performed By: #### 3 1201-7, 5195-3, 43797-9, SYPH #### [facility] CLIA [id number] [address] [place], [place] [address] [place] RBC (Bld) [#/Vol] 3.97 10*6/uL Normal 3.90-5.20 [facility] Comment on above: Order Comment: Speci men Type: BLOOD SPECIMEN Ordering Facility: [facility] Address: [address] [place] [place] [address] Performed By: #### 3 1201-7, 5195-3, 75826-3, SYPH #### [facility] CLIA [id number] [address] [place] [address] [place] WBC (Bld) [#/Vol] 16.45 10*3/uL High 3.70-11.00 [facility] Comment on above: Order Comment: Speci men Type: BLOOD SPECIMEN Ordering Facility: [facility] Address: [address] [place] [address] Performed By: #### 3 1201-7, 5195-3, 89260-9, SYPH #### [facility] CLIA [id number] [address] [place], [place] [address] [place] Comprehensive metabolic 2000 panelon 02-03-2023 Albumin [Mass/Vol] 3.5 g/dL Normal 3.2-5.0 [facility] Comment on above: Order Comment: Speci men Type: BLOOD SPECIMEN Ordering Facility: [facility] Address: [address] [place] [place] [address] Performed By: #### 3 1201-7, 5195-3, 18064-9, SYPH #### [facility] CLIA [id number] [address] [place], [place] [address] [facility] ALP [Catalytic activity/Vol] 82 U/L Normal 45-117 [facility] Comment on above: Order Comment: Speci men Type: BLOOD SPECIMEN Ordering Facility: [facility] Address: [address] Performed By: #### 3 1201-7, 5195-3, 13794-9, SYPH #### [facility] CLIA [id number] [address] [place] [address] [place] [facility] ALT [Catalytic activity/Vol] 19 U/L Normal 13-61 [facility] Comment on above: Order Comment: Speci men Type: BLOOD SPECIMEN Ordering Facility: [facility] Address: [address] [place] [address] Result Comment: Resu lts may be falsely depressed after the administration of Sulfasalazine and/or Sulfapyridine. Performed By: #### 3 1201-7, 5195-3, 57370-7, SYPH #### [facility] CLIA [id number] [address] [place] [address] [place] Anion gap [Moles/Vol] 17 mmol/L High 5-16 [facility] Comment on above: Order Comment: Speci men Type: BLOOD SPECIMEN Ordering Facility: [facility] Address: [address] [place] [address] Performed By: #### 3 1201-7, 5195-3, 38160-5, SYPH #### [facility] CLIA [id number] [address] [place] [address] [place] AST [Catalytic activity/Vol] Normal [facility] Comment on above: Order Comment: Speci jeb Type: BLOOD SPECIMEN Ordering Facility: [facility] Address: [address] [place] [address] Result Comment: Unab le to assay due to interference from hemolysis. Suggest reorder as clinically indicated. Critical or Urgent Result(s) Called at: 04:33:47 on 02/03/2023 by milly. Called to and read back by: CLOVIS Results may be falsely depressed after the administration of Sulfasalazine and/or Sulfapyridine. Performed By: #### 3 1201-7, 5195-3, 00345-0, SYPH #### [facility] CLIA [id number] [address] [place] [address] [place] Bilirubin [Mass/Vol] 1.0 mg/dL Normal 0.2-1.0 [facility] Comment on above: Order Comment: Speci men Type: BLOOD SPECIMEN Ordering Facility: [facility] Address: [address] [place] [address] Performed By: #### 3 1201-7, 5195-3, 65241-0, SYPH #### [facility] CLIA [id number] [address] [place] [address] [place] Calcium [Mass/Vol] 8.5 mg/dL Normal 8.5-10.5 [facility] Comment on above: Order Comment: Speci men Type: BLOOD SPECIMEN Ordering Facility: [facility] Address: [address] [place] [address] Performed By: #### 3 1201-7, 5195-3, 22135-8, SYPH #### [facility] CLIA [id number] [address] [place] [address] [place] Chloride [Moles/Vol] 109 mmol/L High 98-107 [facility] Comment on above: Order Comment: Speci men Type: BLOOD SPECIMEN Ordering Facility: [facility] Address: [address] [place] [address] Performed By: #### 3 1201-7, 5195-3, 02821-8, SYPH #### [facility] CLIA [id number] [address] [place] [address] [place] CO2 [Moles/Vol] 12 mmol/L Low 21-32 [facility] Comment on above: Order Comment: Speci men Type: BLOOD SPECIMEN Ordering Facility: [facility] Address: [address] [place] [address] Performed By: #### 3 1201-7, 5195-3, 66990-3, SYPH #### [facility] CLIA [id number] [address] [place] [address] [place] Creatinine [Mass/Vol] 0.64 mg/dL Normal 0.51-0.95 [facility] Comment on above: Order Comment: Jon russ Type: BLOOD SPECIMEN Ordering Facility: [facility] Address: [address] [id number] Result Comment: Cleopatra ents receiving either N-Acetylcysteine (NAC) or Metamizole prior to venipuncture, may have falsely depressed results. Performed By: #### 3 1201-7, 5195-3, 69008-1, SYPH #### [facility] CLIA [id number] [address] [place] [address] [place] ESTIMATED GLOMERULAR FILTRATION RATE 124 mL/min/1.73m??? Normal >=60 [facility] Comment on above: Order Comment: Jon russ Type: BLOOD SPECIMEN Ordering Facility: [facility] Address: [address] [place], [place] [phone] Result Comment: Janett mated Glomerular Filtration Rate (eGFR) is calculated using the 2020 CKD-EPI creatinine equation. This equation utilizes serum creatinine, sex, and age as parameters. The creatinine assay has traceable calibration to isotope dilution-mass spectrometry. Refer to KDIGO guidelines for clinical interpretation. In patients with unstable renal function, e.g. those with acute kidney injury, the eGFR may not accurately reflect actual GFR. Performed By: #### 3 1201-7, 5195-3, 48509-0, SYPH #### [facility] CLIA [id number] [address] [place] [address] [place] Glucose [Mass/Vol] 252 mg/dL High 70-100 [facility] Comment on above: Order Comment: Jon russ Type: BLOOD SPECIMEN Ordering Facility: [facility] Address: [address] [id number] Result Comment: The [place] Diabetes [employer] (ADA) provides guidance for cutoff values for fasting glucose and random glucose. The ADA defines fasting as no caloric intake for at least 8 hours. Fasting plasma glucose results between 100 to 125 mg/dL indicate increased risk for diabetes (prediabetes). Fasting plasma glucose results greater than or equal to 126 mg/dL meet the criteria for diagnosis of diabetes. In the absence of unequivocal hyperglycemia, results should be confirmed by repeat testing. In a patient with classic symptoms of hyperglycemia or hyperglycemic crisis, random plasma glucose results greater than or equal to 200 mg/dL meet the criteria for diagnosis of diabetes. Reference: Standards of Medical Care in Diabetes 2016, [place] [employer] Association. Diabetes Care. 2016.39(Suppl 1). Results may be falsely elevated after the administration of Sulfapyridine. Results may be falsely depressed after the administration of Sulfasalazine. Performed By: #### 3 1201-7, 5195-3, 21827-7, SYPH #### [facility] CLIA [id number] [address] [place] [address] [place] Potassium [Moles/Vol] Normal [facility] Comment on above: Order Comment: Jon russ Type: BLOOD SPECIMEN Ordering Facility: [facility] Address: [address] [place] [address] Result Comment: Unab le to assay due to interference from hemolysis. Suggest reorder as clinically indicated. Critical or Urgent Result(s) Called at: 04:33:11 on 02/03/2023 by milly. Called to and read back by: CLOVIS Performed By: #### 3 1201-7, 5195-3, 10447-3, SYPH #### [facility] CLIA [id number] [address] [place] [address] [place] Protein [Mass/Vol] 5.8 g/dL Low 6.0-8.5 [facility] Comment on above: Order Comment: Jon russ Type: BLOOD SPECIMEN Ordering Facility: [facility] Address: [address] [address] Performed By: #### 3 1201-7, 5195-3, 91472-6, SYPH #### [facility] CLIA [id number] [address] [place] [address] [place] Sodium [Moles/Vol] 138 mmol/L Normal 136-145 [facility] Comment on above: Order Comment: Jon russ Type: BLOOD SPECIMEN Ordering Facility: [facility] Address: [address] [address] Performed By: #### 3 1201-7, 5195-3, 08675-3, SYPH #### [facility] CLIA [id number] [address] [place], [place] [address] [place] Urea nitrogen [Mass/Vol] 10 mg/dL Normal - [facility] Comment on above: Order Comment: Speci men Type: BLOOD SPECIMEN Ordering Facility: [facility] Address: [address] [place] [address] Performed By: #### 3 1201-7, 5195-3, 14751-4, SYPH #### [facility] CLIA [id number] [address] [place] [address] [place] Magnesium SerPl-mCncon 02-03 Magnesium [Mass/Vol] 1.8 mg/dL Normal 1.6-2.6 [facility] Comment on above: Order Comment: Speci men Type: BLOOD SPECIMEN Ordering Facility: [facility] Address: [address] [place] [address] Performed By: #### 3 1201-7, 5195-3, 08790-0, SYPH #### [facility] CLIA [id number] [address] [place], [place] [address] [place] Basic metabolic 2000 panelon 02-02-2023 Anion gap [Moles/Vol] 17 mmol/L High -16 [facility] Comment on above: Order Comment: Speci men Type: BLOOD SPECIMEN Ordering Facility: [facility] Address: [address] [place] [address] Performed By: #### 3 1201-7, 5195-3, 14810-2, SYPH #### [facility] CLIA [id number] [address] [place], [place] [address] [place] Calcium [Mass/Vol] 8.0 mg/dL Low 8.5-10.5 [facility] Comment on above: Order Comment: Speci men Type: BLOOD SPECIMEN Ordering Facility: [facility] Address: [address] [place] [address] Performed By: #### 3 1201-7, 5195-3, 41146-8, SYPH #### [facility] CLIA [id number] [address] [place] [address] [place] Chloride [Moles/Vol] 108 mmol/L High 98-107 [facility] Comment on above: Order Comment: Speci men Type: BLOOD SPECIMEN Ordering Facility: [facility] Address: [address] [place] [address] Performed By: #### 3 1201-7, 5195-3, 12251-6, SYPH #### [facility] CLIA [id number] [address] [place] [address] [place] CO2 [Moles/Vol] 13 mmol/L Low 21-32 [facility] Comment on above: Order Comment: Speci men Type: BLOOD SPECIMEN Ordering Facility: [facility] Address: [address] [place] [address] Performed By: #### 3 1201-7, 5195-3, 91139-3, SYPH #### [facility] CLIA [id number] [address] [place] [address] [place] Creatinine [Mass/Vol] 0.69 mg/dL Normal 0.51-0.95 [facility] Comment on above: Order Comment: Speci men Type: BLOOD SPECIMEN Ordering Facility: [facility] Address: [address] [place] [address] Result Comment: Cleopatra ents receiving either N-Acetylcysteine (NAC) or Metamizole prior to venipuncture, may have falsely depressed results. Performed By: #### 3 1201-7, 5195-3, 65466-6, SYPH #### [facility] CLIA [id number] [address] [place] [address] [place] ESTIMATED GLOMERULAR FILTRATION RATE 121 mL/min/1.73m??? Normal >=60 [facility] Comment on above: Order Comment: Speci men Type: BLOOD SPECIMEN Ordering Facility: [facility] Address: [address] [place] [address] Result Comment: Janett mated Glomerular Filtration Rate (eGFR) is calculated using the 2020 CKD-EPI creatinine equation. This equation utilizes serum creatinine, sex, and age as parameters. The creatinine assay has traceable calibration to isotope dilution-mass spectrometry. Refer to KDIGO guidelines for clinical interpretation. In patients with unstable renal function, e.g. those with acute kidney injury, the eGFR may not accurately reflect actual GFR. Performed By: #### 3 1201-7, 5195-3, 64440-5, SYPH #### [facility] CLIA [id number] [address] [place], [place] [address] [place] Glucose [Mass/Vol] 251 mg/dL High 70-100 [facility] Comment on above: Order Comment: Jon russ Type: BLOOD SPECIMEN Ordering Facility: [facility] Address: [address] [place] [address] Result Comment: The [place] Diabetes Association (ADA) provides guidance for cutoff values for fasting glucose and random glucose. The ADA defines fasting as no caloric intake for at least 8 hours. Fasting plasma glucose results between 100 to 125 mg/dL indicate increased risk for diabetes (prediabetes). Fasting plasma glucose results greater than or equal to 126 mg/dL meet the criteria for diagnosis of diabetes. In the absence of unequivocal hyperglycemia, results should be confirmed by repeat testing. In a patient with classic symptoms of hyperglycemia or hyperglycemic crisis, random plasma glucose results greater than or equal to 200 mg/dL meet the criteria for diagnosis of diabetes. Reference: Standards of Medical Care in Diabetes 2016, [place] Diabetes Association. Diabetes Care. 2016.39(Suppl 1). Results may be falsely elevated after the administration of Sulfapyridine. Results may be falsely depressed after the administration of Sulfasalazine. Performed By: #### 3 1201-7, 5195-3, 42830-2, SYPH #### [facility] CLIA [id number] [address] [place], [place] [address] [place] Potassium [Moles/Vol] 4.4 mmol/L Normal 3.5-5.1 [facility] Comment on above: Order Comment: Jon russ Type: BLOOD SPECIMEN Ordering Facility: [facility] Address: [address] [place] [address] Performed By: #### 3 1201-7, 5195-3, 75088-7, SYPH #### [facility] CLIA [id number] [address] [place] [address] [place] Sodium [Moles/Vol] 138 mmol/L Normal 136-145 [facility] Comment on above: Order Comment: Speci men Type: BLOOD SPECIMEN Ordering Facility: [facility] Address: [address] [place] [address] Performed By: #### 3 1201-7, 5195-3, 10131-3, SYPH #### [facility] CLIA [id number] [address] [place] [address] [place] Urea nitrogen [Mass/Vol] 12 mg/dL Normal 7-26 [facility] Comment on above: Order Comment: Speci men Type: BLOOD SPECIMEN Ordering Facility: [facility] Address: [address] [place] [address] Performed By: #### 3 1201-7, 5195-3, 29604-8, SYPH #### [facility] CLIA [id number] [address] [place] [address] [place] Anion gap [Moles/Vol] 15 mmol/L Normal 5-16 [facility] Comment on above: Order Comment: Speci men Type: BLOOD SPECIMEN Ordering Facility: [facility] Address: [address] [place] [address] Performed By: #### 3 1201-7, 5195-3, 62220-5, SYPH #### [facility] CLIA [id number] [address] [place] [address] [place] Calcium [Mass/Vol] 8.2 mg/dL Low 8.5-10.5 [facility] Comment on above: Order Comment: Speci men Type: BLOOD SPECIMEN Ordering Facility: [facility] Address: [address] [place] [address] Performed By: #### 3 1201-7, 5195-3, 76803-1, SYPH #### [facility] CLIA [id number] [address] [place] [address] [place] Chloride [Moles/Vol] 113 mmol/L High 98-107 [facility] Comment on above: Order Comment: Speci men Type: BLOOD SPECIMEN Ordering Facility: [facility] Address: [address] [address] Performed By: #### 3 1201-7, 5195-3, 43968-1, SYPH #### [facility] CLIA [id number] [address] [place] [address] [place] CO2 [Moles/Vol] 11 mmol/L Low 21-32 [facility] Comment on above: Order Comment: Speci men Type: BLOOD SPECIMEN Ordering Facility: [facility] Address: [address] [place] [address] Performed By: #### 3 1201-7, 5195-3, 70358-1, SYPH #### [facility] CLIA [id number] [address] [place] [address] [place] Creatinine [Mass/Vol] 0.77 mg/dL Normal 0.51-0.95 [facility] Comment on above: Order Comment: Speci men Type: BLOOD SPECIMEN Ordering Facility: [facility] Address: [address] [place] [address] Result Comment: Cleopatra ents receiving either N-Acetylcysteine (NAC) or Metamizole prior to venipuncture, may have falsely depressed results. Performed By: #### 3 1201-7, 5195-3, 47685-6, SYPH #### [facility] CLIA [id number] [address] [place] [address] [place] ESTIMATED GLOMERULAR FILTRATION RATE 108 mL/min/1.73m??? Normal >=60 [facility] Comment on above: Order Comment: Speci men Type: BLOOD SPECIMEN Ordering Facility: [facility] Address: [address] [place] [address] Result Comment: Janett mated Glomerular Filtration Rate (eGFR) is calculated using the 2020 CKD-EPI creatinine equation. This equation utilizes serum creatinine, sex, and age as parameters. The creatinine assay has traceable calibration to isotope dilution-mass spectrometry. Refer to KDIGO guidelines for clinical interpretation. In patients with unstable renal function, e.g. those with acute kidney injury, the eGFR may not accurately reflect actual GFR. Performed By: #### 3 1201-7, 5195-3, 34173-3, SYPH #### [facility] CLIA [id number] [address] [place], [place] [address] [place] Glucose [Mass/Vol] 253 mg/dL High 70-100 [facility] Comment on above: Order Comment: Jon russ Type: BLOOD SPECIMEN Ordering Facility: [facility] Address: [address] [id number] Result Comment: The [place] Diabetes Association (ADA) provides guidance for cutoff values for fasting glucose and random glucose. The ADA defines fasting as no caloric intake for at least 8 hours. Fasting plasma glucose results between 100 to 125 mg/dL indicate increased risk for diabetes (prediabetes). Fasting plasma glucose results greater than or equal to 126 mg/dL meet the criteria for diagnosis of diabetes. In the absence of unequivocal hyperglycemia, results should be confirmed by repeat testing. In a patient with classic symptoms of hyperglycemia or hyperglycemic crisis, random plasma glucose results greater than or equal to 200 mg/dL meet the criteria for diagnosis of diabetes. Reference: Standards of Medical Care in Diabetes 2016, [place] Diabetes Association. Diabetes Care. 2016.39(Suppl 1). Results may be falsely elevated after the administration of Sulfapyridine. Results may be falsely depressed after the administration of Sulfasalazine. Performed By: #### 3 1201-7, 5195-3, 48151-1, SYPH #### [facility] CLIA [id number] [address] [place] [address] [place] Potassium [Moles/Vol] 4.6 mmol/L Normal 3.5-5.1 [facility] Comment on above: Order Comment: Jon russ Type: BLOOD SPECIMEN Ordering Facility: [facility] Address: [address] [phone] Performed By: #### 3 1201-7, 5195-3, 39086-9, SYPH #### [facility] CLIA [id number] [address] [place] [address] [place] Sodium [Moles/Vol] 139 mmol/L Normal 136-145 [facility] Comment on above: Order Comment: Speci men Type: BLOOD SPECIMEN Ordering Facility: [facility] Address: [address] [address] Performed By: #### 3 1201-7, 5195-3, 06956-9, SYPH #### [facility] CLIA [id number] [address] [place], [place] [address] [place] Urea nitrogen [Mass/Vol] 18 mg/dL Normal 7-26 [facility] Comment on above: Order Comment: Speci men Type: BLOOD SPECIMEN Ordering Facility: [facility] Address: [address] [address] Performed By: #### 3 1201-7, 5195-3, 54446-6, SYPH #### [facility] CLIA [id number] [address] [place] [address] [place] Anion gap [Moles/Vol] 19 mmol/L High 5-16 [facility] Comment on above: Order Comment: Speci men Type: SWAB Ordering Facility: [facility] Address: [address] [address] Performed By: #### 3 6902-5 #### [facility] CLIA [id number] [address] [place] [address] [place] Calcium [Mass/Vol] 8.6 mg/dL Normal 8.5-10.5 [facility] Comment on above: Order Comment: Speci men Type: SWAB Ordering Facility: [facility] Address: [address] Performed By: #### 3 6902-5 #### [facility] CLIA [id number] [address] [place] [address] [place] Chloride [Moles/Vol] 108 mmol/L High 98-107 [facility] Comment on above: Order Comment: Speci men Type: SWAB Ordering Facility: [facility] Address: [address] Performed By: #### 3 6902-5 #### [facility] CLIA [id number] [address] [place] [address] [place] CO2 [Moles/Vol] 9 mmol/L Low 21-32 [facility] Comment on above: Order Comment: Speci men Type: SWAB Ordering Facility: [facility] Address: [address] [address] Result Comment: Crit ical or Urgent Result(s) Called at: 10:32:16 on 02/02/2023 by KPW. Called to and read back by: Billie SALEEM Performed By: #### 3 6902-5 #### [facility] CLIA [id number] [address] [place] [address] [place] Creatinine [Mass/Vol] 0.82 mg/dL Normal 0.51-0.95 [facility] Comment on above: Order Comment: Speci men Type: SWAB Ordering Facility: [facility] Address: [address] [place] [address] Result Comment: Cleopatra ents receiving either N-Acetylcysteine (NAC) or Metamizole prior to venipuncture, may have falsely depressed results. Performed By: #### 3 6902-5 #### [facility] CLIA [id number] [address] [place] [address] [place] [facility] ESTIMATED GLOMERULAR FILTRATION RATE 100 mL/min/1.73m??? Normal >=60 [facility] Comment on above: Order Comment: Speci men Type: SWAB Ordering Facility: [facility] Address: [address] [place] [address] Result Comment: Janett mated Glomerular Filtration Rate (eGFR) is calculated using the 2020 CKD-EPI creatinine equation. This equation utilizes serum creatinine, sex, and age as parameters. The creatinine assay has traceable calibration to isotope dilution-mass spectrometry. Refer to KDIGO guidelines for clinical interpretation. In patients with unstable renal function, e.g. those with acute kidney injury, the eGFR may not accurately reflect actual GFR. Performed By: #### 3 6902-5 #### [facility] CLIA [id number] [address] [place] [address] [place] Glucose [Mass/Vol] 336 mg/dL High 70-100 [facility] Comment on above: Order Comment: Speci men Type: SWAB Ordering Facility: [facility] Address: [address] [place] [address] Result Comment: The [place] Diabetes Association (ADA) provides guidance for cutoff values for fasting glucose and random glucose. The ADA defines fasting as no caloric intake for at least 8 hours. Fasting plasma glucose results between 100 to 125 mg/dL indicate increased risk for diabetes (prediabetes). Fasting plasma glucose results greater than or equal to 126 mg/dL meet the criteria for diagnosis of diabetes. In the absence of unequivocal hyperglycemia, results should be confirmed by repeat testing. In a patient with classic symptoms of hyperglycemia or hyperglycemic crisis, random plasma glucose results greater than or equal to 200 mg/dL meet the criteria for diagnosis of diabetes. Reference: Standards of Medical Care in Diabetes 2016, [place] Diabetes Association. Diabetes Care. 2016.39(Suppl 1). Results may be falsely elevated after the administration of Sulfapyridine. Results may be falsely depressed after the administration of Sulfasalazine. Performed By: #### 3 6902-5 #### [facility] CLIA [id number] [address] [place] [address] [place] Potassium [Moles/Vol] Normal [facility] Comment on above: Order Comment: Speci men Type: SWAB Ordering Facility: [facility] Address: [address] [place] [address] Result Comment: Unab le to assay due to interference from hemolysis. Suggest reorder as clinically indicated. Spoke to Billie SALEEM Performed By: #### 3 6902-5 #### [facility] CLIA [id number] [address] [place] [address] [place] Sodium [Moles/Vol] 136 mmol/L Normal 136-145 [facility] Comment on above: Order Comment: Speci men Type: SWAB Ordering Facility: [facility] Address: [address] [place] [address] Performed By: #### 3 6902-5 #### [facility] CLIA [id number] [address] [place] [address] [place] Urea nitrogen [Mass/Vol] 19 mg/dL Normal 7-26 [facility] Comment on above: Order Comment: Speci men Type: SWAB Ordering Facility: [facility] Address: [address] [address] Performed By: #### 3 6902-5 #### [facility] CLIA [id number] [address] [place] [address] [place] Anion gap [Moles/Vol] 18 mmol/L High 5-16 [facility] Comment on above: Order Comment: Speci men Type: SWAB Ordering Facility: [facility] Address: [address] [address] Performed By: #### 3 6902-5 #### [facility] CLIA [id number] [address] [place] [address] [place] Calcium [Mass/Vol] 8.6 mg/dL Normal 8.5-10.5 [facility] Comment on above: Order Comment: Speci men Type: SWAB Ordering Facility: [facility] Address: [address] [address] Performed By: #### 3 6902-5 #### [facility] CLIA [id number] [address] [place] [address] [place] Chloride [Moles/Vol] 108 mmol/L High 98-107 [facility] Comment on above: Order Comment: Speci men Type: SWAB Ordering Facility: [facility] Address: [address] [address] Performed By: #### 3 6902-5 #### [facility] CLIA [id number] [address] [place] [address] [place] CO2 [Moles/Vol] 12 mmol/L Low 21-32 [facility] Comment on above: Order Comment: Speci men Type: SWAB Ordering Facility: [facility] Address: [address] [address] Performed By: #### 3 6902-5 #### [facility] CLIA [id number] [address] [place] [address] [place] Creatinine [Mass/Vol] 0.75 mg/dL Normal 0.51-0.95 [facility] Comment on above: Order Comment: Jon russ Type: SWAB Ordering Facility: [facility] Address: [address] [address] Result Comment: Cleopatra ents receiving either N-Acetylcysteine (NAC) or Metamizole prior to venipuncture, may have falsely depressed results. Performed By: #### 3 6902-5 #### [facility] CLIA [id number] [address] [place] [address] [place] ESTIMATED GLOMERULAR FILTRATION RATE 111 mL/min/1.73m??? Normal >=60 [facility] Comment on above: Order Comment: Jon russ Type: SWAB Ordering Facility: [facility] Address: [address] [place] [address] Result Comment: Janett mated Glomerular Filtration Rate (eGFR) is calculated using the 2020 CKD-EPI creatinine equation. This equation utilizes serum creatinine, sex, and age as parameters. The creatinine assay has traceable calibration to isotope dilution-mass spectrometry. Refer to KDIGO guidelines for clinical interpretation. In patients with unstable renal function, e.g. those with acute kidney injury, the eGFR may not accurately reflect actual GFR. Performed By: #### 3 6902-5 #### [facility] CLIA [id number] [address] [place] [address] [place] Glucose [Mass/Vol] 421 mg/dL High 70-100 [facility] Comment on above: Order Comment: Jon russ Type: SWAB Ordering Facility: [facility] Address: [address] [address] Result Comment: The [place] Diabetes Association (ADA) provides guidance for cutoff values for fasting glucose and random glucose. The ADA defines fasting as no caloric intake for at least 8 hours. Fasting plasma glucose results between 100 to 125 mg/dL indicate increased risk for diabetes (prediabetes). Fasting plasma glucose results greater than or equal to 126 mg/dL meet the criteria for diagnosis of diabetes. In the absence of unequivocal hyperglycemia, results should be confirmed by repeat testing. In a patient with classic symptoms of hyperglycemia or hyperglycemic crisis, random plasma glucose results greater than or equal to 200 mg/dL meet the criteria for diagnosis of diabetes. Reference: Standards of Medical Care in Diabetes 2016, [place] Diabetes Association. Diabetes Care. 2016.39(Suppl 1). Results may be falsely elevated after the administration of Sulfapyridine. Results may be falsely depressed after the administration of Sulfasalazine. Performed By: #### 3 6902-5 #### [facility] CLIA [id number] [address] [place] [address] [place] Potassium [Moles/Vol] 4.8 mmol/L Normal 3.5-5.1 [facility] Comment on above: Order Comment: Speci men Type: SWAB Ordering Facility: [facility] Address: [address] [place] [address] Performed By: #### 3 6902-5 #### [facility] CLIA [id number] [address] [place] [address] [place] Sodium [Moles/Vol] 138 mmol/L Normal 136-145 [facility] Comment on above: Order Comment: Speci men Type: SWAB Ordering Facility: [facility] Address: [address] [place] [address] Performed By: #### 3 6902-5 #### [facility] CLIA [id number] [address] [place] [address] [place] Urea nitrogen [Mass/Vol] 20 mg/dL Normal 7-26 [facility] Comment on above: Order Comment: Speci men Type: SWAB Ordering Facility: [facility] Address: [address] [place] [address] Performed By: #### 3 6902-5 #### [facility] CLIA [id number] [address] [place] [address] [place] CBC W Auto Differential pane l (Bld)on 02-02-2023 Basophils (Bld) [#/Vol] 0.03 10*3/uL Normal <0.11 [facility] Comment on above: Order Comment: Speci men Type: BLOOD SPECIMEN Ordering Facility: [facility] Address: [address] [address] Performed By: #### 3 1201-7, 5-3, 21240-0, SYPH #### [facility] CLIA [id number] [address] [place] [address] [place] Basophils/100 WBC (Bld) 0.1 % Normal [facility] Comment on above: Order Comment: Speci men Type: BLOOD SPECIMEN Ordering Facility: [facility] Address: [address] [address] Performed By: #### 3 1201-7, 5-3, 31487-1, SYPH #### [facility] CLIA [id number] [address] [place] [address] [place] Differential cell count method Nom (Bld) Auto Normal [facility] Comment on above: Order Comment: Speci men Type: BLOOD SPECIMEN Ordering Facility: [facility] Address: [address] [address] Performed By: #### 3 1201-7, 5194-3, 55054-7, SYPH #### [facility] CLIA [id number] [address] [place] [address] [place] Eosinophils (Bld) [#/Vol] 10*3/uL Normal <0.46 [facility] Comment on above: Order Comment: Speci men Type: BLOOD SPECIMEN Ordering Facility: [facility] Address: [address] [address] Performed By: #### 3 1201-7, 5194-3, 05865-9, SYPH #### [facility] CLIA [id number] [address] [place] [address] [place] Eosinophils/100 WBC (Bld) 0.0 % Normal [facility] Comment on above: Order Comment: Speci men Type: BLOOD SPECIMEN Ordering Facility: [facility] Address: [address] [address] Performed By: #### 3 1201-7, 5-3, 92600-8, SYPH #### [facility] CLIA [id number] [address] [place] [address] [place] Erythrocyte distribution width (RBC) [Ratio] 14.0 % Normal 11.5-15.0 [facility] Comment on above: Order Comment: Speci men Type: BLOOD SPECIMEN Ordering Facility: [facility] Address: [address] [place] [address] Performed By: #### 3 1201-7, 5194-3, , SYPH #### [facility] CLIA [id number] [address] [place] [address] [place] Hematocrit (Bld) [Volume fraction] 33.8 % Low 36.0-46.0 [facility] Comment on above: Order Comment: Speci men Type: BLOOD SPECIMEN Ordering Facility: [facility] Address: [address] [place] [address] Performed By: #### 3 1201-7, 5194-3, , SYPH #### [facility] CLIA [id number] [address] [place] [address] [place] Hemoglobin (Bld) [Mass/Vol] 10.8 g/dL Low 11.5-15.5 [facility] Comment on above: Order Comment: Speci men Type: BLOOD SPECIMEN Ordering Facility: [facility] Address: [address] [place] [address] Performed By: #### 3 1201-7, 5194-3, , SYPH #### [facility] CLIA [id number] [address] [place] [address] [place] Immature granulocytes (Bld) [#/Vol] 0.19 10*3/uL High <0.10 [facility] Comment on above: Order Comment: Speci men Type: BLOOD SPECIMEN Ordering Facility: [facility] Address: [address] [place] [address] Performed By: #### 3 1201-7, 519-3, 19189-9, SYPH #### [facility] CLIA [id number] [address] [place] [address] [place] Immature granulocytes/100 WBC (Bld) 0.9 % Normal [facility] Comment on above: Order Comment: Speci men Type: BLOOD SPECIMEN Ordering Facility: [facility] Address: [address] [place] [address] Performed By: #### 3 1201-7, 5195-3, 54637-8, SYPH #### [facility] CLIA [id number] [address] [place] [address] [place] Lymphocytes (Bld) [#/Vol] 2.41 10*3/uL Normal 1.00-4.00 [facility] Comment on above: Order Comment: Speci men Type: BLOOD SPECIMEN Ordering Facility: [facility] Address: [address] [place] [address] Performed By: #### 3 1201-7, 5195-3, 58219-5, SYPH #### [facility] CLIA [id number] [address] [place] [address] [place] Lymphocytes/100 WBC (Bld) 11.6 % Normal [facility] Comment on above: Order Comment: Speci men Type: BLOOD SPECIMEN Ordering Facility: [facility] Address: [address] [place] [address] Performed By: #### 3 1201-7, 5195-3, 04489-2, SYPH #### [facility] CLIA [id number] [address] [place] [address] [place] MCH (RBC) [Entitic mass] 29.1 pg Normal 26.0-34.0 [facility] Comment on above: Order Comment: Speci men Type: BLOOD SPECIMEN Ordering Facility: [facility] Address: [address] [place] [address] Performed By: #### 3 1201-7, 5195-3, 23729-8, SYPH #### [facility] CLIA [id number] [address] [place] [address] [place] MCHC (RBC) [Mass/Vol] 32.0 g/dL Normal 30.5-36.0 [facility] Comment on above: Order Comment: Speci men Type: BLOOD SPECIMEN Ordering Facility: [facility] Address: [address] Performed By: #### 3 1201-7, 5195-3, 69124-3, SYPH #### [facility] CLIA [id number] [address] [place] [address] [place] MCV (RBC) [Entitic vol] 91.1 fL Normal 80.0-100.0 [facility] Comment on above: Order Comment: Speci men Type: BLOOD SPECIMEN Ordering Facility: [facility] Address: [address] [address] Performed By: #### 3 1201-7, 5195-3, 47865-7, SYPH #### [facility] CLIA [id number] [address] [place] [address] [place] Monocytes (Bld) [#/Vol] 0.93 10*3/uL High <0.87 [facility] Comment on above: Order Comment: Speci men Type: BLOOD SPECIMEN Ordering Facility: [facility] Address: [address] [place] [address] Performed By: #### 3 1201-7, 5195-3, 19793-8, SYPH #### [facility] CLIA [id number] [address] [place] [address] [place] Monocytes/100 WBC (Bld) 4.5 % Normal [facility] Comment on above: Order Comment: Speci men Type: BLOOD SPECIMEN Ordering Facility: [facility] Address: [address] Performed By: #### 3 1201-7, 5195-3, 03622-7, SYPH #### [facility] CLIA [id number] [address] [place] [address] [place] Neutrophils (Bld) [#/Vol] 17.17 10*3/uL High 1.45-7.50 [facility] Comment on above: Order Comment: Speci men Type: BLOOD SPECIMEN Ordering Facility: [facility] Address: [address] [address] Performed By: #### 3 1201-7, 5-3, 05766-9, SYPH #### [facility] CLIA [id number] [address] [place] [address] [place] Neutrophils/100 WBC (Bld) 82.9 % Normal [facility] Comment on above: Order Comment: Speci men Type: BLOOD SPECIMEN Ordering Facility: [facility] Address: [address] [address] Performed By: #### 3 1201-7, 5-3, 91193-5, SYPH #### [facility] CLIA [id number] [address] [place] [address] [place] Nucleated RBC (Bld) [#/Vol] 10*3/uL Normal <0.01 [facility] Comment on above: Order Comment: Speci men Type: BLOOD SPECIMEN Ordering Facility: [facility] Address: [address] [address] Performed By: #### 3 1201-7, 5194-3, 92173-2, SYPH #### [facility] CLIA [id number] [address] [place] [address] [place] Nucleated RBC/100 WBC (Bld) [Ratio] 0.0 /100 WBC Normal [facility] Comment on above: Order Comment: Speci men Type: BLOOD SPECIMEN Ordering Facility: [facility] Address: [address] Performed By: #### 3 1201-7, 5195-3, 65484-8, SYPH #### [facility] CLIA [id number] [address] [place] [address] [place] Platelet mean volume (Bld) [Entitic vol] 12.0 fL Normal 9.0-12.7 [facility] Comment on above: Order Comment: Speci men Type: BLOOD SPECIMEN Ordering Facility: [facility] Address: [address] [place] [id number] Performed By: #### 3 1201-7, 5195-3, 74415-4, SYPH #### [facility] CLIA [id number] [address] [place], [place] [address] [place] Platelets (Bld) [#/Vol] 164 10*3/uL Normal 150-400 [facility] Comment on above: Order Comment: Speci men Type: BLOOD SPECIMEN Ordering Facility: [facility] Address: [address] Performed By: #### 3 1201-7, 5195-3, 58110-7, SYPH #### [facility] CLIA [id number] [address] [place], [place] [address] [place] RBC (Bld) [#/Vol] 3.71 10*6/uL Low 3.90-5.20 [facility] Comment on above: Order Comment: Speci men Type: BLOOD SPECIMEN Ordering Facility: [facility] Address: [address] Performed By: #### 3 1201-7, 5195-3, 26225-4, SYPH #### [facility] CLIA [id number] [address] [place], [place] [address] [facility] OF [place] WBC (Bld) [#/Vol] 20.73 10*3/uL High 3.70-11.00 [facility] Comment on above: Order Comment: Speci men Type: BLOOD SPECIMEN Ordering Facility: [facility] Address: [address] [id number] Performed By: #### 3 1201-7, 5195-3, 27860-3, SYPH #### [facility] CLIA [id number] [address] [place], [place] [address] [facility] OF [place] Gas and Carbon monoxide pane l (BldV)on 02-02-2023 BASE DEFICIT, VENOUS -16 mmol/L Low -2-0 [facility] Comment on above: Order Comment: Speci men Type: SWAB Ordering Facility: [facility] Address: [address] [place], [place] [id number] Performed By: #### 3 6902-5 #### [facility] CLIA [id number] [address] [place] [address] [place] Body temperature 98.6 [degF] Normal [facility] Comment on above: Order Comment: Speci men Type: SWAB Ordering Facility: [facility] Address: [address] [place] [address] Performed By: #### 3 6902-5 #### [facility] CLIA [id number] [address] [place] [address] [place] Calcium.ionized (Bld) [Mass/Vol] 1.14 mmol/L Normal 1.08-1.30 [facility] Comment on above: Order Comment: Speci men Type: SWAB Ordering Facility: [facility] Address: [address] [place] [address] Performed By: #### 3 6902-5 #### [facility] CLIA [id number] [address] [place] [address] [place] Carboxyhemoglobin (BldV) [Mass fraction] 1.0 % Normal 0.0-2.0 [facility] Comment on above: Order Comment: Speci men Type: SWAB Ordering Facility: [facility] Address: [address] [place] [address] Result Comment: Carb oxyhemoglobin Reference Range for Smokers: 2.0-8.0% Performed By: #### 3 6902-5 #### [facility] CLIA [id number] [address] [place] [address] [place] CO2 (BldV) [Partial pressure] 22 mm[Hg] Low 42-55 [facility] Comment on above: Order Comment: Speci men Type: SWAB Ordering Facility: [facility] Address: [address] [place] [address] Performed By: #### 3 6902-5 #### [facility] CLIA [id number] [address] [place] [address] [place] Glucose [Mass/Vol] 335 mg/dL High 60-105 [facility] Comment on above: Order Comment: Speci men Type: SWAB Ordering Facility: [facility] Address: [address] [address] Performed By: #### 3 6902-5 #### [facility] CLIA [id number] [address] [place] [address] [place] HCO3 (Bld) [Moles/Vol] 9 mmol/L Low 24-28 [facility] Comment on above: Order Comment: Speci men Type: SWAB Ordering Facility: [facility] Address: [address] [address] Performed By: #### 3 6902-5 #### [facility] CLIA [id number] [address] [place] [address] [place] Hemoglobin (Bld) [Mass/Vol] 13.1 g/dL Normal 11.5-15.5 [facility] Comment on above: Order Comment: Speci men Type: SWAB Ordering Facility: [facility] Address: [address] Performed By: #### 3 6902-5 #### [facility] CLIA [id number] [address] [place] [address] [place] Lactate [Moles/Vol] 1.8 mmol/L Normal 0.5-2.2 [facility] Comment on above: Order Comment: Speci men Type: SWAB Ordering Facility: [facility] Address: [address] Performed By: #### 3 6902-5 #### [facility] CLIA [id number] [address] [place] [address] [place] Methemoglobin (Bld) [Mass fraction] 0.3 % Normal 0.0-1.5 [facility] Comment on above: Order Comment: Speci men Type: SWAB Ordering Facility: [facility] Address: [address] Performed By: #### 3 6902-5 #### [facility] CLIA [id number] [address] [place] [address] [place] O2 THERAPY RA=Room Air Normal [facility] Comment on above: Order Comment: Speci men Type: SWAB Ordering Facility: [facility] Address: [address] [address] Performed By: #### 3 6902-5 #### [facility] CLIA [id number] [address] [place] [address] [place] Oxygen (BldV) [Partial pressure] 93 mm[Hg] High 35-45 [facility] Comment on above: Order Comment: Speci men Type: SWAB Ordering Facility: [facility] Address: [address] [address] Performed By: #### 3 6902-5 #### [facility] [place] [id number] [address] [place] [address] [place] Oxyhemoglobin (BldV) [Mass fraction] 94 % Normal 4-98 [facility] Comment on above: Order Comment: Speci men Type: SWAB Ordering Facility: [facility] Address: [address] [address] Performed By: #### 3 6902-5 #### [facility] [place] [id number] [address] [place] [address] [place] pH (BldV) 7.24 [pH] Low 7.32-7.42 [facility] Comment on above: Order Comment: Speci men Type: SWAB Ordering Facility: [facility] Address: [address] [address] Performed By: #### 3 6902-5 #### [facility] CLIA [id number] [address] [place] [address] [place] Potassium [Moles/Vol] 5.3 mmol/L Normal 2.5-6.0 [facility] Comment on above: Order Comment: Speci men Type: SWAB Ordering Facility: [facility] Address: [address] [address] Performed By: #### 3 6902-5 #### [facility] CLIA [id number] [address] [place], [place] [address] [place] Sodium [Moles/Vol] 131 mmol/L Low 136-144 [facility] Comment on above: Order Comment: Speci men Type: SWAB Ordering Facility: [facility] Address: [facility] [place] [address] Performed By: #### 3 6902-5 #### [facility] CLIA [id number] [address] [id number] [place] HISTORY PHYSICALon HISTORY PHYSICAL HNO ID: [id number] Author: Yimi Leroy APRN.TECHNICAL PROGRAMS MANAGER Service: Critical Care Author Type: Nurse Practitioner Type: HANDP Filed: 02/02/2023 9:48 AM Note Text: [facility] DATE: February 02, 2023 SERVICE TIME: 919 Consulting Doctor: Dr Diana CHIEF COMPLAINT: DKA HPI: This is a 27-year-old white female who presented 2 days ago on 01/31 secondary to nausea and vomiting at home. Patient has a known history of diabetic gastroparesis. She follows in [facility]. She was admitted to [place]. Unfortunately she has not been tolerating p.o. intake with the exception of some ice chips. ICU service was contacted by Dr. Deedee Allen of the hospitalist service today given concerns for evolving DKA. Patient's serum bicarbonate level has decreased from 15-12. A BMP is currently pending. Anion gap was 18 as of 2:00 this morning. Patient's last blood sugar was 421. Patient typically is on the insulin pump however this had a critical value. She was transitioned to Lantus subcutaneous dosing. 3 L of fluid was administered. However the patient continues to backslide. Thus she will be admitted to ICU for further ongoing aggressive crystalloid volume resuscitation and insulin management. 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 VAMSI 11/2014 SECTION HX 02/25/2014 amairani 37 weeks PAST SURGICAL HISTORY OF Right 01/08/2020 REMOVE IMPLANTED MATERIAL POSTERIOR SEGMENT OF EYE, EXTRAOCULAR PICC LINE INSERT/CONSULT 01/09/2014 PORT Left VITRECTOMY MECHANICAL PARS PLANA 10/29/2012 PPV (Pars Plana Vitrectomy) OD VITRECTOMY MECHANICAL PARS PLANA 05/14/2014 PPV (Pars Plana Vitrectomy)/PCIOL OS XTRNL PT ACTIV ECG TRANSMIS W/LUBA left chest wall FAMILY HISTORY Problem Relation Age of Onset Cancer Mother 18 cervical Thyroid Mother Multiple Sclerosis Father other (mitral valve) Father Thyroid Sister Diabetes Maternal Grandmother type 2 diabetes Cataract Other maternal great grandma Glaucoma Other maternal great grandma Social History Tobacco Use Smoking status: Former Packs/day: 0.30 Years: 8.00 Pack years: 2.40 Types: Cigarettes Quit date: 06/2019 Years since quittin.6 Smokeless tobacco: Never Vaping Use Vaping Use: Never used Substance Use Topics Alcohol use: Yes Comment: very rarely Drug use: Yes Types: Marijuana Comment: medical card previous HOME MEDICATIONS: insulin aspart U-100 (NOVOLOG U-100 INSULIN ASPART) 100 unit/mLUse in the Insulin pump for TDD of 100 units.Disp: 90 mLRfl: 1 prochlorperazine (COMPAZINE) 10 mg tabletTake 1 tablet by mouth every 6 hours as needed.Disp: 15 tabletRfl: 0 Lancets (MICROLET LANCET) lancetsUse as instructed to test blood sugar 4 times daily. E10.65Disp: 400 EachRfl: 3 blood sugar diagnostic (CONTOUR NEXT TEST STRIPS) test stripUse as instructed to check blood glucose 5 times daily. E10.65Disp: 500 StripRfl: 3 glucose 4 gram chewable tabletTake 4 tablets by mouth as needed.Disp: 100 tabletRfl: 11 linaCLOtide (LINZESS) 72 mcg capsuleTake 1 capsule by mouth once daily. Administer on an empty stomach. Swallow whole; DO NOT crush or chew.Disp: 30 capsuleRfl: 4 promethazine (PHENERGAN) 50 mg tab(s)Take 1 tablet by mouth every 8 hours as needed.Disp: 30 tabletRfl: 2 insulin glargine (LANTUS SOLOSTAR, BASAGLAR KWIKPEN) 100 unit/mL (3 mL)Inject 43 Units subcutaneously as directed in the event of Insulin pump failure.Disp: 15 mLRfl: 1 Acetone, Urine, Test (KETONE URINE TEST)Use as directedDisp: 100 StripRfl: 5 SKYRIZI 150 mg/mL injectionINJECT 150 MG UNDER THE SKIN EVERY 12 WEEKSDisp: Rfl: INPATIENT MEDICATIONS: Current Facility-Administered Medications Medication Dose Route Frequency NaCl 0.9% iv flush bag 20 mL INTRAVENOUS PRN NaCl 0.9% iv infusion 125 mL/hr INTRAVENOUS CONTINUOUS acetaminophen 650 mg tab(s) (TYLENOL) 650 mg ORAL q 4 H PRN dextrose 40 % 15 g 15 g ORAL PRN Or glucagon 1 mg injection 1 mg INTRAMUSCULAR PRN Or dextrose 10% iv bolus 12.5 g INTRAVENOUS PRN insulin lispro injection (rapid acting) (HumaLOG) SUBCUTANEOUS w MEALS prochlorperazine 10 mg injection (COMPAZINE) 10 mg INTRAVENOUS q 6 H PRN metoclopramide HCl 10 mg injection (REGLAN) 10 mg INTRAVENOUS q 6 H PRN pantoprazole 40 mg injection (PROTONIX) 40 mg INTRAVENOUS DAILY (6 AM) insulin aspart human 300 Units per 3mL vial for insulin pump (JUSTIN (more content not included)... Normal [facility] KETONES/ACETONE/BHBon 2022 Beta hydroxybutyrate [Moles/Vol] >6.00 High 0.02-0.27 [facility] Comment on above: Order Comment: Speci men Type: SWAB Ordering Facility: [facility] Address: [address] [place] [address] [place] [address] Result Comment: Rudolph ortiz ketone levels will vary depending on several factors (for example, food intake, alcohol intake and conditions such as ketoacidosis). Patients should be fasting 12 hours prior to collection. Patient samples with high levels of M-Protein (i.e. Gammopathy) may affect the accuracy of this assay. Performed By: #### 3 6902-5 #### [facility] CLIA [id number] [address] [place] [address] [place] Beta hydroxybutyrate [Moles/Vol] 5.70 mmol/L High 0.02-0.27 [facility] Comment on above: Order Comment: Jon russ Type: SWAB Ordering Facility: [facility] Address: [address] [place] [address] Result Comment: Bloo d ketone levels will vary depending on several factors (for example, food intake, alcohol intake and conditions such as ketoacidosis). Patients should be fasting 12 hours prior to collection. Patient samples with high levels of M-Protein (i.e. Gammopathy) may affect the accuracy of this assay. Performed By: #### 3 6902-5 #### [facility] CLIA [id number] [address] [place] [address] [place] Magnesium SerPl-mCncon 02-02 Magnesium [Mass/Vol] 2.3 mg/dL Normal 1.6-2.6 [facility] Comment on above: Order Comment: Jon russ Type: SWAB Ordering Facility: [facility] Address: [address] [place] [address] Performed By: #### 3 6902-5 #### [facility] CLIA [id number] [address] [place] [address] [place] Procalcitonin SerPl-mCncon 0 02-02-2023 Procalcitonin [Mass/Vol] 0.33 ng/mL Normal 0.00-0.50 [facility] Comment on above: Order Comment: Jon russ Type: BLOOD SPECIMEN Ordering Facility: [facility] Address: [address] [place] [address] Result Comment: PCT Concentration Interpretation PCT <=0.1 ng/mL: Normal range for healthy adults PCT >0.1 ng/mL and <0.5 ng/mL: Systemic infection (sepsis) is possible and may require antibiotic treatment, but other conditions are known to elevate PCT as well. PCT >0.5 ng/mL: Should be considered at risk for developing severe sepsis or septic shock. PCT >2.0 ng/mL: Important systemic inflammatory response. Almost exclusively indicates episode of severe bacterial sepsis or septic shock. Performed By: #### 3 1201-7, 5195-3, 23234-6, SYPH #### [facility] CLIA [id number] [address] [place] [address] [place] Basic metabolic 2000 panelon 02-01-2023 Anion gap [Moles/Vol] 16 mmol/L Normal 5-16 [facility] Comment on above: Order Comment: Speci men Type: SWAB Ordering Facility: [facility] Address: [address] [place] [address] Performed By: #### 3 6902-5 #### [facility] CLIA [id number] [address] [place] [address] [place] Calcium [Mass/Vol] 8.4 mg/dL Low 8.5-10.5 [facility] Comment on above: Order Comment: Speci men Type: SWAB Ordering Facility: [facility] Address: [address] [place] [address] Performed By: #### 3 6902-5 #### [facility] CLIA [id number] [address] [place] [address] [place] Chloride [Moles/Vol] 108 mmol/L High 98-107 [facility] Comment on above: Order Comment: Speci men Type: SWAB Ordering Facility: [facility] Address: [address] [place] [address] Performed By: #### 3 6902-5 #### [facility] CLIA [id number] [address] [place] [address] [place] CO2 [Moles/Vol] 15 mmol/L Low 21-32 [facility] Comment on above: Order Comment: Speci men Type: SWAB Ordering Facility: [facility] Address: [address] [address] Performed By: #### 3 6902-5 #### [facility] CLIA [id number] [address] [place] [address] [place] Creatinine [Mass/Vol] 0.89 mg/dL Normal 0.51-0.95 [facility] Comment on above: Order Comment: Speci men Type: SWAB Ordering Facility: [facility] Address: [address] [place] [address] Result Comment: Cleopatra ents receiving either N-Acetylcysteine (NAC) or Metamizole prior to venipuncture, may have falsely depressed results. Performed By: #### 3 6902-5 #### [facility] CLIA [id number] [address] [place] [address] [place] ESTIMATED GLOMERULAR FILTRATION RATE 91 mL/min/1.73m??? Normal >=60 [facility] Comment on above: Order Comment: Speci men Type: SWAB Ordering Facility: [facility] Address: [address] [address] Result Comment: Janett mated Glomerular Filtration Rate (eGFR) is calculated using the 2020 CKD-EPI creatinine equation. This equation utilizes serum creatinine, sex, and age as parameters. The creatinine assay has traceable calibration to isotope dilution-mass spectrometry. Refer to KDIGO guidelines for clinical interpretation. In patients with unstable renal function, e.g. those with acute kidney injury, the eGFR may not accurately reflect actual GFR. Performed By: #### 3 6902-5 #### [facility] CLIA [id number] [address] [place] [address] [place] Glucose [Mass/Vol] 351 mg/dL High 70-100 [facility] Comment on above: Order Comment: Belindai men Type: SWAB Ordering Facility: [facility] Address: [address] [place] [address] Result Comment: The [place] Diabetes Association (ADA) provides guidance for cutoff values for fasting glucose and random glucose. The ADA defines fasting as no caloric intake for at least 8 hours. Fasting plasma glucose results between 100 to 125 mg/dL indicate increased risk for diabetes (prediabetes). Fasting plasma glucose results greater than or equal to 126 mg/dL meet the criteria for diagnosis of diabetes. In the absence of unequivocal hyperglycemia, results should be confirmed by repeat testing. In a patient with classic symptoms of hyperglycemia or hyperglycemic crisis, random plasma glucose results greater than or equal to 200 mg/dL meet the criteria for diagnosis of diabetes. Reference: Standards of Medical Care in Diabetes 2016, [place] Diabetes Association. Diabetes Care. 2016.39(Suppl 1). Results may be falsely elevated after the administration of Sulfapyridine. Results may be falsely depressed after the administration of Sulfasalazine. Performed By: #### 3 6902-5 #### [facility] CLIA [id number] [address] [place] [address] [place] Potassium [Moles/Vol] 4.0 mmol/L Normal 3.5-5.1 [facility] Comment on above: Order Comment: Speci men Type: SWAB Ordering Facility: [facility] Address: [address] [place] [address] Performed By: #### 3 6902-5 #### [facility] CLIA [id number] [address] [place] [address] [place] Sodium [Moles/Vol] 139 mmol/L Normal 136-145 [facility] Comment on above: Order Comment: Speci men Type: SWAB Ordering Facility: [facility] Address: [address] [place] [address] Performed By: #### 3 6902-5 #### [facility] CLIA [id number] [address] [place] [address] [place] Urea nitrogen [Mass/Vol] 19 mg/dL Normal 7-26 [facility] Comment on above: Order Comment: Speci men Type: SWAB Ordering Facility: [facility] Address: [address] [place] [address] Performed By: #### 3 6902-5 #### [facility] CLIA [id number] [address] [place] [address] [place] CBC panel Auto (Bld)on 02-01 Erythrocyte distribution width (RBC) [Ratio] 13.3 % Normal 11.5-15.0 [facility] Comment on above: Order Comment: Speci men Type: BLOOD SPECIMENOrdering Facility: [facility] Address: [address] [place] [address] Performed By: #### L [id number] #### [facility] CLIA [id number] [address] [place], [place] [id number] [place] Hematocrit (Bld) [Volume fraction] 38.4 % Normal 36.0-46.0 [facility] Comment on above: Order Comment: Speci men Type: BLOOD SPECIMENOrdering Facility: [facility] Address: [address] [address] Performed By: #### L [id number] #### [facility] CLIA [id number] [address] [place] [address] [place] Hemoglobin (Bld) [Mass/Vol] 12.6 g/dL Normal 11.5-15.5 [facility] Comment on above: Order Comment: Speci men Type: BLOOD SPECIMENOrdering Facility: [facility] Address: [address] Performed By: #### L [id number] #### [facility] CLIA [id number] [address] [place] [address] [place] MCH (RBC) [Entitic mass] 29.2 pg Normal 26.0-34.0 [facility] Comment on above: Order Comment: Speci men Type: BLOOD SPECIMENOrdering Facility: [facility] Address: [address] Performed By: #### L [id number] #### [facility] CLIA [id number] [address] [place] [address] [place] MCHC (RBC) [Mass/Vol] 32.8 g/dL Normal 30.5-36.0 [facility] Comment on above: Order Comment: Speci men Type: BLOOD SPECIMENOrdering Facility: [facility] Address: [address] Performed By: #### L [id number] #### [facility] CLIA [id number] [address] [place] [address] [place] MCV (RBC) [Entitic vol] 88.9 fL Normal 80.0-100.0 [facility] Comment on above: Order Comment: Speci men Type: BLOOD SPECIMENOrdering Facility: [facility] Address: [address] Performed By: #### L [id number] #### [facility] CLIA [id number] [address] [place] [address] [place] Nucleated RBC (Bld) [#/Vol] 10*3/uL Normal <0.01 [facility] Comment on above: Order Comment: Speci men Type: BLOOD SPECIMENOrdering Facility: [facility] Address: [address] [place] [address] Performed By: #### L [id number] #### [facility] CLIA [id number] [address] [place] [address] [place] Platelet mean volume (Bld) [Entitic vol] 13.5 fL High 9.0-12.7 [facility] Comment on above: Order Comment: Speci men Type: BLOOD SPECIMENOrdering Facility: [facility] Address: [address] [place] [address] Performed By: #### L [id number] #### [facility] CLIA [id number] [address] [place] [address] [place] Platelets (Bld) [#/Vol] 139 10*3/uL Low 150-400 [facility] Comment on above: Order Comment: Speci men Type: BLOOD SPECIMENOrdering Facility: [facility] Address: [address] [place] [address] Result Comment: No c lot detected. Performed By: #### L [id number] #### [facility] CLIA [id number] [address] [place] [address] [place] RBC (Bld) [#/Vol] 4.32 10*6/uL Normal 3.90-5.20 [facility] Comment on above: Order Comment: Speci men Type: BLOOD SPECIMENOrdering Facility: [facility] Address: [address] [place] [address] Performed By: #### L [id number] #### [facility] CLIA [id number] [address] [place] [address] [place] WBC (Bld) [#/Vol] 16.97 10*3/uL High 3.70-11.00 [facility] Comment on above: Order Comment: Speci men Type: BLOOD SPECIMENOrdering Facility: [facility] Address: [place] [address] Performed By: #### L [id number] #### [facility] CLIA [id number] [address] [place] [address] [place] CNPNon 02-01-2023 CNPN Telephone (FAMPOR) KATHLEEN IVLLA ([id number]) 1995 F CHT Date Time Provider Department 02/01/23 VIVI SMITH During your visit today, we recorded the following information about you: Radha Mandel MA 02/01/2023 10:35 AM Signed ----- Message from Vivi Smith MD sent at 01/27/2023 8:53 AM EDT ----- Please call and notify patient no signs of UTI on urine culture Radha Mandel MA 02/01/2023 10:36 AM Signed Spoke with patient and she voiced understanding. Allergies As of Date: 02/01/2023 Noted Allergy Reaction PERCOCET (OXYCODONE-ACETAMINOPH EN)01/10/2014 2 - Rash 5 - Intolerance 9 - Itching ADHESIVE TAPE (ROSINS) 09/04/2013 2 - Rash INDOMETHACIN 11/20/2003 2 - Rash KEFLEX (CEPHALEXIN) 11/12/2013 14 - Other: See Comments Comments: Makes infection worse- patient denies this on 02/25/2014 MORPHINE 08/30/2013 2 - Rash 9 - Itching ZOFRAN (ONDANSETRON HCL (PF)) 01/14/2015 14 - Other: See Comments Comments: syncope ADHESIVE 11/07/2022 2 - Rash Date Reviewed: 02/01/2023 Reviewed by: Avani Seo RN - Fully Assessed Reason for Visit: Results [95] Prescriptions as of 02/01/2023 - insulin aspart U-100 (NOVOLOG U-100 INSULIN ASPART) 100 unit/mL Use in the Insulin pump for TDD of 100 units. - prochlorperazine (COMPAZINE) 10 mg tablet Take 1 tablet by mouth every 6 hours as needed. - hyoscyamine sublingual (LEVSIN/SL) 0.125 mg (Discontinued) Dissolve 1 tablet under the tongue every 4 hours as needed. - Lancets (MICROLET LANCET) lancets Use as instructed to test blood sugar 4 times daily. E10.65 - blood sugar diagnostic (CONTOUR NEXT TEST STRIPS) test strip Use as instructed to check blood glucose 5 times daily. E10.65 - glucagon (BAQSIMI) 3 mg/actuation nasal spray Use 1 [place] in the nose as needed for low blood sugar. May repeat after 15 minutes using a new device if there is no response. - glucose 4 gram chewable tablet Take 4 tablets by mouth as needed. - insulin glargine (LANTUS SOLOSTAR, BASAGLAR KWIKPEN) 100 unit/mL (3 mL) Inject 43 Units subcutaneously as directed in the event of Insulin pump failure. - linaCLOtide (LINZESS) 72 mcg capsule Take 1 capsule by mouth once daily. Administer on an empty stomach. Swallow whole; DO NOT crush or chew. - Acetone, Urine, Test (KETONE URINE TEST) Use as directed - promethazine (PHENERGAN) 50 mg tab(s) Take 1 tablet by mouth every 8 hours as needed. - SKYRIZI 150 mg/mL injection INJECT 150 MG UNDER THE SKIN EVERY 12 WEEKS - hydrOXYzine HCl (ATARAX) 50 mg tablet Take 50 mg by mouth every 6 hours as needed. Facility-Administered Medications as of 02/01/2023 - NaCl 0.9% iv flush bag - NaCl 0.9% iv infusion - acetaminophen 650 mg tab(s) (TYLENOL) - dextrose 40 % 15 g - glucagon 1 mg injection - dextrose 10% iv bolus - insulin lispro injection (rapid acting) (HumaLOG) - metoclopramide HCl 5 mg injection (REGLAN) - prochlorperazine 10 mg injection (COMPAZINE) - hyoscyamine sublingual 0.125 mg tab(s) (LEVSIN SL) Meds Comments as of 01/09/2020: All meds reviewed before sx. Pt has aye also for after sx. CL 01/09/20 IC PNV prenata plus multivitamin Problem List As Of Date 02/01/2023 Noted Resolved Retinal detachment [H33.20] 10/26/2012 12/25/2012 SUMMARY [V999.95] 12/25/2012 Acute chest pain [R07.9] 12/25/2012 Marfan syndrome [Q87.40] 12/25/2012 DM (diabetes mellitus) (HCC) [E11.9] 12/25/2012 Gastroparesis due to DM (HCC) [E11.43, K31.84] 12/25/2012 PTSD (post-traumatic stress disorder) [F43.10] 12/25/2012 DVT prophylaxis [Z79.899] 12/25/2012 09/04/2013 DISPOSITION AND FOLLOW-UP [V999.01] 12/25/2012 09/04/2013 HTN (hypertension) [I10] Hypertension in , antepartum [O16.9] 09/19/2013 01/08/2014 GBS (group B Streptococcus carrier), +RV cultur*11/11/2013 04/16/2014 [Z34.90] 11/22/2013 04/16/2014 Diabetes mellitus in (HCC) [O24.919] 12/25/2013 04/16/2014 DKA (diabetic ketoacidoses) [E11.10] 01/08/2014 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] 01/08/2014 DVT prophylaxis [Z79.899] 02/25/2014 04/16/2014 care and examination [Z39.2] 02/25/2014 04/16/2014 Near syncope [R55] 06/17/2014 Dyspnea [R06.00] 11/04/2014 Pre-op testing [Z01.818] 11/28/2014 Atelectasis [J98.11] 12/10/2014 Fluid overload [E87.70] 12/10/2014 12/15/2014 Tachycardia, unspecified [R00.0] 12/10/2014 12/12/2014 Post-operative pain [G89.18] 12/10/2014 Anxiety [F41.9] 12/10/2014 12/13/2014 Pre-existing type 1 diabetes mellitus in pregna*08/05/2015 10/03/2018 Hereditary disease in family possibly affecting*10/07/2015 Diabetes (HCC) [E11.9] 10/30/2015 Abdominal pain complicating , antepart*11/12/2015 [Z34.90] 01/28/2016 03/06/2017 Type 1 diabetes mellitus with stable proliferat*03/17/2017 Chronic idiopathic constipation [K59.04] 11/18/2021 Menstrual irregularity [N92.6] (more content not included)... Normal [facility] Comprehensive metabolic 2000 panelon 02-01-2023 Albumin [Mass/Vol] 3.8 g/dL Normal 3.2-5.0 [facility] Comment on above: Order Comment: Jon russ Type: BLOOD SPECIMENOrdering Facility: [facility] Address: [address] [place] [address] Performed By: #### L [id number] #### [facility] CLIA [id number] [address] [place] [address] [place] ALP [Catalytic activity/Vol] 84 U/L Normal 45-117 [facility] Comment on above: Order Comment: Jon russ Type: BLOOD SPECIMENOrdering Facility: [facility] Address: [address] [place] [address] Performed By: #### L [id number] #### [facility] CLIA [id number] [address] [place] [address] [place] ALT [Catalytic activity/Vol] 19 U/L Normal 13-61 [facility] Comment on above: Order Comment: Jon russ Type: BLOOD SPECIMENOrdering Facility: [facility] Address: [address] [place] [address] Result Comment: Resu lts may be falsely depressed after the administration of Sulfasalazine and/or Sulfapyridine. Performed By: #### L [id number] #### [facility] CLIA [id number] [address] [place] [address] [place] Anion gap [Moles/Vol] 16 mmol/L Normal 5-16 [facility] Comment on above: Order Comment: Speci men Type: BLOOD SPECIMENOrdering Facility: [facility] Address: [address] [address] Performed By: #### L [id number] #### [facility] CLIA [id number] [address] [place] [address] [place] AST [Catalytic activity/Vol] 15 U/L Normal 8-34 [facility] Comment on above: Order Comment: Speci men Type: BLOOD SPECIMENOrdering Facility: [facility] Address: [address] [address] Result Comment: Resu lts may be falsely depressed after the administration of Sulfasalazine and/or Sulfapyridine. Performed By: #### L [id number] #### [facility] CLIA [id number] [address] [place] [address] [place] Bilirubin [Mass/Vol] 0.7 mg/dL Normal 0.2-1.0 [facility] Comment on above: Order Comment: Speci men Type: BLOOD SPECIMENOrdering Facility: [facility] Address: [address] [address] Performed By: #### L [id number] #### [facility] CLIA [id number] [address] [place] [address] [place] Calcium [Mass/Vol] 8.7 mg/dL Normal 8.5-10.5 [facility] Comment on above: Order Comment: Speci men Type: BLOOD SPECIMENOrdering Facility: [facility] Address: [address] [address] Performed By: #### L [id number] #### [facility] CLIA [id number] [address] [place] [address] [place] Chloride [Moles/Vol] 110 mmol/L High 98-107 [facility] Comment on above: Order Comment: Speci men Type: BLOOD SPECIMENOrdering Facility: [facility] Address: [address] [address] Performed By: #### L [id number] #### [facility] CLIA [id number] [address] [place] [address] [place] CO2 [Moles/Vol] 15 mmol/L Low 21-32 [facility] Comment on above: Order Comment: Speci men Type: BLOOD SPECIMENOrdering Facility: [facility] Address: [address] [place] [address] Performed By: #### L [id number] #### [facility] CLIA [id number] [address] [place] [address] [place] Creatinine [Mass/Vol] 0.66 mg/dL Normal 0.51-0.95 [facility] Comment on above: Order Comment: Speci men Type: BLOOD SPECIMENOrdering Facility: [facility] Address: [address] [place] [address] Result Comment: Cleopatra ents receiving either N-Acetylcysteine (NAC) or Metamizole prior to venipuncture, may have falsely depressed results. Performed By: #### L [id number] #### [facility] CLIA [id number] [address] [place] [address] [place] ESTIMATED GLOMERULAR FILTRATION RATE 123 mL/min/1.73m??? Normal >=60 [facility] Comment on above: Order Comment: Speci men Type: BLOOD SPECIMENOrdering Facility: [facility] Address: [address] [place] [address] Result Comment: Janett mated Glomerular Filtration Rate (eGFR) is calculated using the 2020 CKD-EPI creatinine equation. This equation utilizes serum creatinine, sex, and age as parameters. The creatinine assay has traceable calibration to isotope dilution-mass spectrometry. Refer to KDIGO guidelines for clinical interpretation. In patients with unstable renal function, e.g. those with acute kidney injury, the eGFR may not accurately reflect actual GFR. Performed By: #### L [id number] #### [facility] CLIA [id number] [address] [place] [address] [place] Glucose [Mass/Vol] 311 mg/dL High 70-100 [facility] Comment on above: Order Comment: Speci men Type: BLOOD SPECIMENOrdering Facility: [facility] Address: [address] [place] [address] Result Comment: The [place] Diabetes Association (ADA) provides guidance for cutoff values for fasting glucose and random glucose. The ADA defines fasting as no caloric intake for at least 8 hours. Fasting plasma glucose results between 100 to 125 mg/dL indicate increased risk for diabetes (prediabetes). Fasting plasma glucose results greater than or equal to 126 mg/dL meet the criteria for diagnosis of diabetes. In the absence of unequivocal hyperglycemia, results should be confirmed by repeat testing. In a patient with classic symptoms of hyperglycemia or hyperglycemic crisis, random plasma glucose results greater than or equal to 200 mg/dL meet the criteria for diagnosis of diabetes. Reference: Standards of Medical Care in Diabetes 2016, [place] Diabetes Association. Diabetes Care. 2016.39(Suppl 1). Results may be falsely elevated after the administration of Sulfapyridine. Results may be falsely depressed after the administration of Sulfasalazine. Performed By: #### L [id number] #### [facility] CLIA [id number] [address] [place] [address] [place] Potassium [Moles/Vol] 4.4 mmol/L Normal 3.5-5.1 [facility] Comment on above: Order Comment: Speci men Type: BLOOD SPECIMENOrdering Facility: [facility] Address: [address] [place] [address] Performed By: #### L [id number] #### [facility] CLIA [id number] [address] [place] [address] [place] Protein [Mass/Vol] 6.5 g/dL Normal 6.0-8.5 [facility] Comment on above: Order Comment: Speci men Type: BLOOD SPECIMENOrdering Facility: [facility] Address: [address] [place] [address] Performed By: #### L [id number] #### [facility] CLIA [id number] [address] [place] [address] [place] Sodium [Moles/Vol] 141 mmol/L Normal 136-145 [facility] Comment on above: Order Comment: Speci men Type: BLOOD SPECIMENOrdering Facility: [facility] Address: [place] [address] Performed By: #### L [id number] #### [facility] CLIA [id number] [address] [place], [place] [id number] [facility] Urea nitrogen [Mass/Vol] 15 mg/dL Normal 7-26 [facility] Comment on above: Order Comment: Speci men Type: BLOOD SPECIMENOrdering Facility: [facility] Address: [address] [place] [address] Performed By: #### L [id number] #### [facility] CLIA [id number] [address] [place], [place] [id number] [facility] ED PROV NOTEon 02-01-2023 ED PROV NOTE HNO ID: [id number] Author: Adryan Alexis PA-C Service: ? Author Type: Physician [employer] Clerk Type: ED Provider Notes Filed: 01/31/2023 11:39 PM Note Text: ED Provider Note Patient Name: Kathleen Villa : 1995 SERVICE DATE: 01/31/23 History Patient presents with: Vomiting Chest Pain: Chest pain that radiates into her back, actively vomiting in triage. History of gastroparesis that caused her chest pain at times. 27-year-old female with a history of diabetes mellitus and diabetic gastroparesis presents to the emergency department for evaluation of nausea and intractable vomiting since this morning. She states that she has been unable to keep anything down today. She reports diffuse abdominal cramping. Denies any hematemesis, melena, hematochezia. She denies any fever or chills. She states that the pain is primarily to the epigastrium and does radiate up into her chest/esophagus. She denies any additional complaints. 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 VAMSI 11/2014 SECTION HX 02/25/2014 amairani 37 weeks PAST SURGICAL HISTORY OF Right 01/08/2020 REMOVE IMPLANTED MATERIAL POSTERIOR SEGMENT OF EYE, EXTRAOCULAR PICC LINE INSERT/CONSULT 01/09/2014 PORT Left VITRECTOMY MECHANICAL PARS PLANA 10/29/2012 PPV ([place]ana Vitrectomy) OD VITRECTOMY MECHANICAL PARS PLANA 05/14/2014 PPV ([place]ana Vitrectomy)/PCIOL OS XTRNL PT ACTIV ECG TRANSMIS W/LUBA left chest wall FAMILY HISTORY Problem Relation Age of Onset Cancer Mother 18 cervical Thyroid Mother Multiple Sclerosis Father other (mitral valve) Father Thyroid Sister Diabetes Maternal Grandmother type 2 diabetes Cataract Other maternal great grandma Glaucoma Other maternal great grandma Social History Tobacco Use Smoking status: Former Packs/day: 0.30 Years: 8.00 Pack years: 2.40 Types: Cigarettes Quit date: 06/2019 Years since quittin.5 Smokeless tobacco: Never Vaping Use Vaping Use: Never used Substance and Sexual Activity Alcohol use: Yes Comment: very rarely Drug use: Yes Types: Marijuana Comment: medical card previous Sexual activity: Yes Partners: Male control/protection: None ALLERGIES Allergen Reactions Percocet [Oxycodone* Rash, Intolerance, Itching Adhesive Tape (Lidia* Rash Indomethacin Rash Keflex [Cephalexin] Other: See Comments Makes infection worse- patient denies this on 02/25/2014 Morphine Rash, Itching Zofran [Ondansetron* Other: See Comments syncope Adhesive Rash Review of Systems Gastrointestinal: Positive for abdominal pain, nausea and vomiting. All other systems reviewed and are negative. Physical Exam Vitals [01/31/23 1853] BP Pulse Temp Temp src Resp SpO2 Weight Height 117/87 88 36.6 ?C (97.8 ?F) Oral 22 97 % 86.2 kg (190 lb) 1.753 m (5' 9) Physical Exam Vitals and nursing note reviewed. Constitutional: Appearance: Normal appearance. HENT: Head: Normocephalic and atraumatic. Cardiovascular: Rate and Rhythm: Normal rate and regular rhythm. Pulmonary: Effort: Pulmonary effort is normal. Breath sounds: Normal breath sounds. Abdominal: General: Abdomen is flat. Palpations: Abdomen is soft. Comments: No guarding or rigidity. Mild diffuse tenderness to palpation. No rebound or peritoneal signs. No palpable mass organomegaly. Musculoskeletal: Cervical back: Neck supple. Skin: General: Skin is warm and dry. Neurological: General: No focal deficit present. Mental Status: She is alert. Psychiatric: Mood and Affect: Mood normal. Diagnostic Testing ED Labs Ordered and Reviewed CBC + DIFF - Abnormal; Notable for the following components: Result Value Ref Range WBC 15.46 (*) 3.70 - 11.00 k/uL MPV 13.0 (*) 9.0 - 12.7 fL Abs Neut 12.16 (*) 1.45 - 7.50 k/uL Abs Immature Gran 0.12 (*) <0.10 k/uL All other components within normal limits BASIC METABOLIC PNL - Abnormal; Notable for the following components: Glucose 248 (*) 70 - 100 mg/dL Chloride 110 (*) 98 - 107 mmol/L CO2 15 (*) 21 - 32 mmol/L All other components within normal limits URINALYSIS WITH MICROSCOPIC, REFLEX CULTURE - Abnormal; Notable for the following components: Glucose, Urine 3+ (*) Negative Ketones, Urine 2+ (*) Negative Hemoglobin/Blood,Ur 2+ (*) Negative Protein, Urine 1+ (*) Negative RBC, Urine 3-5 /HPF (*) 0-3 /HPF Bacteria Rare (*) None Seen /HPF All other components within normal limits SEPSIS LACT (more content not included)... Normal [facility] HISTORY PHYSICALon HISTORY PHYSICAL HNO ID: [id number] Author: Camilo Centeno DO Service: Hospital Medicine Author Type: Physician Type: HANDP Filed: 02/01/2023 8:08 AM Note Text: HISTORY AND PHYSICAL SERVICE DATE: 01/31/2023 SERVICE TIME: 11:46 PM PRIMARY CARE PHYSICIAN: Vivi Smith MD Subjective CHIEF COMPLAINT: Abdominal pain, nausea, and vomiting HPI: Patient is a 27-year-old female who presented to the [facility] emergency department earlier this evening for further evaluation of nausea and vomiting. She was also endorsing some abdominal pain. By her admission symptoms began earlier this morning and gradually worsened throughout the day. She has been unable to keep anything down. Of note, the patient is a known insulin-dependent diabetic. She does have gastroparesis. Upon arrival to the emergency department the patient was found to be hemodynamically stable. On exam her abdomen was tender to palpation. Routine labs revealed hyperglycemia that was consistent with her known diabetes. White blood cell count was elevated at 15.46. Lactic acid was elevated at 3.0. High-sensitivity troponin was within normal limits. Urinalysis was negative for signs of infection. KUB was obtained. A non-specific bowel gas pattern was seen. Patient was given Reglan and IV fluids. PAST MEDICAL HISTORY: Marfan syndrome Type I diabetes mellitus Gastroparesis Hypertension Polycystic ovarian syndrome (PCOS) Anxiety Depression Marijuana use Hx of tobacco abuse PAST SURGICAL HISTORY: Appendectomy Ascending aortic aneurysm repair Bilateral eyes surgery section FAMILY HISTORY: Mother: cancer SOCIAL HISTORY: Smokes marijuana, former cigarette use ALLERGIES Allergen Reactions Percocet [Oxycodone* Rash, Intolerance, Itching Adhesive Tape (Lidia* Rash Indomethacin Rash Keflex [Cephalexin] Other: See Comments Makes infection worse- patient denies this on 02/25/2014 Morphine Rash, Itching Zofran [Ondansetron* Other: See Comments syncope Adhesive Rash REVIEW OF SYSTEMS: Constitutional: no fever/chills/sweats, no fatigue, no weakness, no weight gain/loss HEENT: no vision changes, no hearing loss, no nasal congestion/drainage, no sore throat Cardiovascular: no chest pain, no palpitations, no orthopnea, no leg swelling, no syncope Respiratory: no shortness of breath, no cough, no sputum production, no wheezing, no hemoptysis Gastrointestinal: admits abdominal pain, nausea, and vomiting, no abdominal pain, no diarrhea, no constipation, no bloody stool, no loss of appetite Genitourinary: no dysuria, no hematuria, no retention, no urgency, no penile/vaginal discharge, no vaginal bleeding Musculoskeletal: no joint pain/swelling, no back pain, no muscle aches Skin: no rashes Lymphatic: no enlarged lymph nodes Endocrine: no polyuria, no polydipsia, no temperature intolerance Neurology: no headache, no dizziness, no numbness, no weakness, no tingling, no difficulty with speech Psychiatry: no anxiety, no depression, no suicidal ideation MEDICATIONS: Current Outpatient Medications Medication Sig insulin aspart U-100 (NOVOLOG U-100 INSULIN ASPART) 100 unit/mL Use in the Insulin pump for TDD of 100 units. prochlorperazine (COMPAZINE) 10 mg tablet Take 1 tablet by mouth every 6 hours as needed. hyoscyamine sublingual (LEVSIN SL) 0.125 mg Dissolve 2 tablets under the tongue before meals and at bedtime for 7 days. Lancets (MICROLET LANCET) lancets Use as instructed to test blood sugar 4 times daily. E10.65 blood sugar diagnostic (CONTOUR NEXT TEST STRIPS) test strip Use as instructed to check blood glucose 5 times daily. E10.65 glucagon (BAQSIMI) 3 mg/actuation nasal spray Use 1 [place] in the nose as needed for low blood sugar. May repeat after 15 minutes using a new device if there is no response. glucose 4 gram chewable tablet Take 4 tablets by mouth as needed. insulin glargine (LANTUS SOLOSTAR, BASAGLAR KWIKPEN) 100 unit/mL (3 mL) Inject 43 Units subcutaneously as directed in the event of Insulin pump failure. linaCLOtide (LINZESS) 72 mcg capsule Take 1 capsule by mouth once daily. Administer on an empty stomach. Swallow whole; DO NOT crush or chew. Acetone, Urine, Test (KETONE URINE TEST) Use as directed promethazine (PHENERGAN) 50 mg tab(s) Take 1 tablet by mouth every 8 hours as needed. SKYRIZI 150 mg/mL injection INJECT 150 MG UNDER THE SKIN EVERY 12 WEEKS hydrOXYzine HCl (ATARAX) 50 mg tablet Take 50 mg by mouth every 6 hours as needed. Objective BP 148/68 Pulse 57 Temp (Src) 97.8 (Oral) Resp 22 Ht 5' 9 (1.75m) Wt 190 lb (86.2kg) SpO2 98% LMP 11/26/2022 BMI 28.05 kg/(m2). O2 Therapy: Room Air PHYSICAL EXAM: General: alert and oriented x3, resting comfortably Neck: supple, no hepatojugular reflux or jugular venous distention, no carotid bruits Lungs: clear to auscultation bilaterally, no wheezing, rales, or rhonchi (more content not included)... Normal [facility] Magnesium SerPl-mCncon 02-01 Magnesium [Mass/Vol] 1.7 mg/dL Normal 1.6-2.6 [facility] Comment on above: Order Comment: Speci men Type: BLOOD SPECIMENOrdering Facility: [facility] Address: [address] [place], [place] [address] [address] Performed By: #### L [id number] #### [facility] CLIA [id number] [facility] [place] [address] [place] NURSING PROGon 02-01-2023 NURSING PROG HNO ID: [id number] Author: Avani Seo RN Service: Nursing Author Type: Registered Nurse Type: Nursing Progress Note Filed: 02/01/2023 3:21 PM Note Text: Summary: condition Pt had multiple episodes of vomiting light green bile. She has taken about 6 showers stating that makes her feel better. The dressing on her port was wet after a shower and dressing changed. Her insulin pump is now malfunctioning with a critical error. 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 It is now disconnected and she will now take sliding scale insulin for coverage. Normal [facility] Urinalysis complete panel (U )on 02-01-2023 Bacteria LM.HPF (Urine sed) [#/Area] Rare Abnormal None Seen [facility] Comment on above: Order Comment: Speci men Type: URINE SPECIMENOrdering Facility: [facility] Address: [address] [place] [address] Performed By: #### L [id number] #### [facility] CLIA [id number] [facility] [place] [address] [place] Bilirubin Ql (U) Negative Normal Negative [facility] Comment on above: Order Comment: Speci men Type: URINE SPECIMENOrdering Facility: [facility] Address: [address] [address] Performed By: #### L [id number] #### [facility] CLIA [id number] [address] [place] [address] [place] Clarity (Unsp spec) Clear Normal Clear [facility] Comment on above: Order Comment: Speci men Type: URINE SPECIMENOrdering Facility: [facility] Address: [address] [place] [address] Performed By: #### L [id number] #### [facility] CLIA [id number] [address] [place] [address] [place] Color (U) Yellow Normal Yellow [facility] Comment on above: Order Comment: Speci men Type: URINE SPECIMENOrdering Facility: [facility] Address: [address] [place] [address] Performed By: #### L [id number] #### [facility] CLIA [id number] [address] [place] [address] [place] Epithelial cells LM.HPF (Urine sed) [#/Area] Few Normal [facility] Comment on above: Order Comment: Speci men Type: URINE SPECIMENOrdering Facility: [facility] Address: [address] [place] [address] Performed By: #### L [id number] #### [facility] CLIA [id number] [address] [place] [address] [place] Glucose Test strip (U) [Mass/Vol] 3+ Abnormal Negative [facility] Comment on above: Order Comment: Speci men Type: URINE SPECIMENOrdering Facility: [facility] Address: [address] [place] [address] Performed By: #### L [id number] #### [facility] CLIA [id number] [address] [place] [address] [place] Hemoglobin Ql (U) 2+ Abnormal Negative [facility] Comment on above: Order Comment: Speci men Type: URINE SPECIMENOrdering Facility: [facility] Address: [address] [place] [address] Performed By: #### L [id number] #### [facility] CLIA [id number] [address] [place] [address] [place] Ketones Ql (U) 2+ Abnormal Negative [facility] Comment on above: Order Comment: Speci men Type: URINE SPECIMENOrdering Facility: [facility] Address: [address] [address] Performed By: #### L [id number] #### [facility] CLIA [id number] [address] [place] [address] [place] Leukocyte esterase Test strip Ql (U) Negative Normal Negative [facility] Comment on above: Order Comment: Speci men Type: URINE SPECIMENOrdering Facility: [facility] Address: [address] [place] [address] Performed By: #### L [id number] #### [facility] CLIA [id number] [address] [place] [address] [place] Nitrite Ql (U) Negative Normal Negative [facility] Comment on above: Order Comment: Speci men Type: URINE SPECIMENOrdering Facility: [facility] Address: [address] [place] [address] Performed By: #### L [id number] #### [facility] LABORATORY CLIA [id number] [address] [place] [address] [place] pH (U) 7.0 [pH] Normal 5.0-8.0 [facility] Comment on above: Order Comment: Speci men Type: URINE SPECIMENOrdering Facility: [facility] Address: [address] [address] Performed By: #### L [id number] #### [facility] CLIA [id number] [address] [place] [address] [place] Protein (U) [Mass/Vol] 1+ Abnormal Negative [facility] Comment on above: Order Comment: Speci men Type: URINE SPECIMENOrdering Facility: [facility] Address: [address] [place] [address] Performed By: #### L [id number] #### [facility] CLIA [id number] [address] [place] [address] STATES [facility] RBC LM.HPF (Urine sed) [#/Area] 3-5 /HPF Abnormal 0-3 /HPF [facility] Comment on above: Order Comment: Speci men Type: URINE SPECIMENOrdering Facility: [facility] Address: [address] [place] [address] Performed By: #### L [id number] #### [facility] CLIA [id number] [address] [place] [address] [place] Specific gravity (U) [Rel density] 1.021 Normal 1.005-1.030 [facility] Comment on above: Order Comment: Speci men Type: URINE SPECIMENOrdering Facility: [facility] Address: [address] [place] [address] Performed By: #### L [id number] #### [facility] CLIA [id number] [address] [place] [address] Urobilinogen Ql (U) Negative Normal Negative [facility] Comment on above: Order Comment: Speci men Type: URINE SPECIMENOrdering Facility: [facility] Address: [address] [place] [address] Performed By: #### L [id number] #### [facility] CLIA [id number] [address] [place] [address] [place] WBC LM.HPF (Urine sed) [#/Area] 0-5 /HPF Normal 0-5 /HPF [facility] Comment on above: Order Comment: Speci men Type: URINE SPECIMENOrdering Facility: [facility] Address: [address] [place] [address] Performed By: #### L [id number] #### [facility] CLIA [id number] [address] [place] [address] [place] Basic metabolic 2000 panelon 01-31-2023 Anion gap [Moles/Vol] 16 mmol/L Normal 5-16 [facility] Comment on above: Order Comment: Speci men Type: BLOOD SPECIMENOrdering Facility: [facility] Address: [address] [address] Performed By: #### 2 4325-3, 19147-5, HCG ####[facility]ORY[facility] [id number] [place] [address] [place] Calcium [Mass/Vol] 9.9 mg/dL Normal 8.5-10.5 [facility] Comment on above: Order Comment: Speci men Type: BLOOD SPECIMENOrdering Facility: [facility] Address: [address] [address] Performed By: #### 2 4325-3, 76126-9, HCG ####[facility] [id number] [place] [address] [place] Chloride [Moles/Vol] 110 mmol/L High 98-107 [facility] Comment on above: Order Comment: Speci men Type: BLOOD SPECIMENOrdering Facility: [facility] Address: [address] [address] Performed By: #### 2 4325-3, 90503-8, HCG ####[facility] [id number] [place] [address] [place] CO2 [Moles/Vol] 15 mmol/L Low 21-32 [facility] Comment on above: Order Comment: Speci men Type: BLOOD SPECIMENOrdering Facility: [facility] Address: [address] [address] Performed By: #### 2 4325-3, 12449-1, HCG ####[facility] [id number] [place] [address] [place] Creatinine [Mass/Vol] 0.65 mg/dL Normal 0.51-0.95 [facility] Comment on above: Order Comment: Speci men Type: BLOOD SPECIMENOrdering Facility: [facility] Address: [address] [address] Result Comment: Cleopatra ents receiving either N-Acetylcysteine (NAC) or Metamizole prior to venipuncture, may have falsely depressed results. Performed By: #### 2 4325-3, 85238-0, HCG ####[facility]ORYCLIA [id number] [place] [id number] [place] ESTIMATED GLOMERULAR FILTRATION RATE 123 mL/min/1.73m??? Normal >=60 [facility] Comment on above: Order Comment: Jon russ Type: BLOOD SPECIMENOrdering Facility: [facility] Address: [address] [address] Result Comment: Janett mated Glomerular Filtration Rate (eGFR) is calculated using the 2020 CKD-EPI creatinine equation. This equation utilizes serum creatinine, sex, and age as parameters. The creatinine assay has traceable calibration to isotope dilution-mass spectrometry. Refer to KDIGO guidelines for clinical interpretation. In patients with unstable renal function, e.g. those with acute kidney injury, the eGFR may not accurately reflect actual GFR. Performed By: #### 2 4325-3, 15148-0, HCG ####[facility]ORYCL[facility] [id number] [place] [address] [place] Glucose [Mass/Vol] 248 mg/dL High 70-100 [facility] Comment on above: Order Comment: Jon russ Type: BLOOD SPECIMENOrdering Facility: [facility] Address: [address] [place] [address] Result Comment: The [place] Diabetes Association (ADA) provides guidance for cutoff values for fasting glucose and random glucose. The ADA defines fasting as no caloric intake for at least 8 hours. Fasting plasma glucose results between 100 to 125 mg/dL indicate increased risk for diabetes (prediabetes). Fasting plasma glucose results greater than or equal to 126 mg/dL meet the criteria for diagnosis of diabetes. In the absence of unequivocal hyperglycemia, results should be confirmed by repeat testing. In a patient with classic symptoms of hyperglycemia or hyperglycemic crisis, random plasma glucose results greater than or equal to 200 mg/dL meet the criteria for diagnosis of diabetes. Reference: Standards of Medical Care in Diabetes 2016, [place] Diabetes Association. Diabetes Care. 2016.39(Suppl 1). Results may be falsely elevated after the administration of Sulfapyridine. Results may be falsely depressed after the administration of Sulfasalazine. Performed By: #### 2 4325-3, 24752-8, HCG ####[facility]ORY[facility]IA [id number] [place] [id number] [place] Potassium [Moles/Vol] 3.8 mmol/L Normal 3.5-5.1 [facility] Comment on above: Order Comment: Speci men Type: BLOOD SPECIMENOrdering Facility: [facility] Address: [address] [address] Performed By: #### 2 4325-3, 48596-8, HCG ####[facility]ORYCLIA [id number] [place] [address] [place] Sodium [Moles/Vol] 141 mmol/L Normal 136-145 [facility] Comment on above: Order Comment: Speci men Type: BLOOD SPECIMENOrdering Facility: [facility] Address: [address] [address] Performed By: #### 2 4325-3, 29536-9, HCG ####[facility]ORY[facility]IA [id number] [place] [address] [place] Urea nitrogen [Mass/Vol] 17 mg/dL Normal 7-26 [facility] Comment on above: Order Comment: Speci men Type: BLOOD SPECIMENOrdering Facility: [facility] Address: [address] [address] Performed By: #### 2 4325-3, 58918-6, HCG ####[facility]ORY[facility] [id number] [place] [address] [place] CBC W Auto Differential pane l (Bld)on 01-31-2023 Basophils (Bld) [#/Vol] 0.07 10*3/uL Normal <0.11 [facility] Comment on above: Order Comment: Speci men Type: BLOOD SPECIMENOrdering Facility: [facility] Address: [address] [address] Performed By: #### 5 7021-8 ####[facility]ORYCLIA [id number] [place] [address] [place] Basophils/100 WBC (Bld) 0.5 % Normal [facility] Comment on above: Order Comment: Speci men Type: BLOOD SPECIMENOrdering Facility: [facility] Address: [address] [address] Performed By: #### 5 7021-8 ####[facility]ORY[facility]IA [id number] [place] [address] [place] Differential cell count method Nom (Bld) Auto Normal [facility] Comment on above: Order Comment: Speci men Type: BLOOD SPECIMENOrdering Facility: [facility] Address: [address] [address] Performed By: #### 5 7021-8 ####[facility]ORY[facility]IA [id number] [place] [address] [place] Eosinophils (Bld) [#/Vol] 10*3/uL Normal <0.46 [facility] Comment on above: Order Comment: Speci men Type: BLOOD SPECIMENOrdering Facility: [facility] Address: [address] [address] Performed By: #### 5 7021-8 ####[facility]CLIA [id number] [address] [place] Eosinophils/100 WBC (Bld) 0.1 % Normal [facility] Comment on above: Order Comment: Speci men Type: BLOOD SPECIMENOrdering Facility: [facility] Address: [address] [address] Performed By: #### 5 7021-8 ####[facility] [id number] [place] [address] [place] Erythrocyte distribution width (RBC) [Ratio] 12.9 % Normal 11.5-15.0 [facility] Comment on above: Order Comment: Speci men Type: BLOOD SPECIMENOrdering Facility: [facility] Address: [address] [address] Performed By: #### 5 7021-8 ####[facility]ORY[facility]IA [id number] [place] [address] [place] Hematocrit (Bld) [Volume fraction] 43.2 % Normal 36.0-46.0 [facility] Comment on above: Order Comment: Speci men Type: BLOOD SPECIMENOrdering Facility: [facility] Address: [address] [place] [address] Performed By: #### 5 7021-8 ####[facility]ORYCLIA [id number] [place] [address] [place] Hemoglobin (Bld) [Mass/Vol] 14.8 g/dL Normal 11.5-15.5 [facility] Comment on above: Order Comment: Speci men Type: BLOOD SPECIMENOrdering Facility: [facility] Address: [address] [place] [address] Performed By: #### 5 7021-8 ####[facility]ORYCLIA [id number] [place] [address] [place] Immature granulocytes (Bld) [#/Vol] 0.12 10*3/uL High <0.10 [facility] Comment on above: Order Comment: Speci men Type: BLOOD SPECIMENOrdering Facility: [facility] Address: [address] [place] [address] Performed By: #### 5 7021-8 ####[facility]ORYCLIA [id number] [place] [address] [place] Immature granulocytes/100 WBC (Bld) 0.8 % Normal [facility] Comment on above: Order Comment: Speci men Type: BLOOD SPECIMENOrdering Facility: [facility] Address: [address] [place] [address] Performed By: #### 5 7021-8 ####[facility]ORYCLIA [id number] [place] [address] [place] Lymphocytes (Bld) [#/Vol] 2.36 10*3/uL Normal 1.00-4.00 [facility] Comment on above: Order Comment: Speci men Type: BLOOD SPECIMENOrdering Facility: [facility] Address: [address] [address] Performed By: #### 5 7021-8 ####[facility]CLIA [id number] [address] [place] Lymphocytes/100 WBC (Bld) 15.3 % Normal [facility] Comment on above: Order Comment: Speci men Type: BLOOD SPECIMENOrdering Facility: [facility] Address: [address] [address] Performed By: #### 5 7021-8 ####[facility]IA [id number] [address] [place] MCH (RBC) [Entitic mass] 29.1 pg Normal 26.0-34.0 [facility] Comment on above: Order Comment: Speci men Type: BLOOD SPECIMENOrdering Facility: [facility] Address: [address] [address] Performed By: #### 5 7021-8 ####[facility]ORYCLIA [id number] [address] MCHC (RBC) [Mass/Vol] 34.3 g/dL Normal 30.5-36.0 [facility] Comment on above: Order Comment: Speci men Type: BLOOD SPECIMENOrdering Facility: [facility] Address: [address] [address] Performed By: #### 5 7021-8 ####[facility]IA [id number] [address] [place] MCV (RBC) [Entitic vol] 84.9 fL Normal 80.0-100.0 [facility] Comment on above: Order Comment: Speci men Type: BLOOD SPECIMENOrdering Facility: [facility] Address: [address] [address] Performed By: #### 5 7021-8 ####[facility]ORYCLIA [id number] [place] [address] [place] Monocytes (Bld) [#/Vol] 0.73 10*3/uL Normal <0.87 [facility] Comment on above: Order Comment: Speci men Type: BLOOD SPECIMENOrdering Facility: [facility] Address: [address] [address] Performed By: #### 5 7021-8 ####[facility]IA [id number] [place] [address] [place] Monocytes/100 WBC (Bld) 4.7 % Normal [facility] Comment on above: Order Comment: Speci men Type: BLOOD SPECIMENOrdering Facility: [facility] Address: [address] [address] Performed By: #### 5 7021-8 ####[facility]IA [id number] [place] [address] [place] Neutrophils (Bld) [#/Vol] 12.16 10*3/uL High 1.45-7.50 [facility] Comment on above: Order Comment: Speci men Type: BLOOD SPECIMENOrdering Facility: [facility] Address: [address] [address] Performed By: #### 5 7021-8 ####[facility]IA [id number] [place] [address] [place] Neutrophils/100 WBC (Bld) 78.6 % Normal [facility] Comment on above: Order Comment: Speci men Type: BLOOD SPECIMENOrdering Facility: [facility] Address: [address] Performed By: #### 5 7021-8 ####[facility]CLIA [id number] [place] [address] [place] Nucleated RBC (Bld) [#/Vol] 10*3/uL Normal <0.01 [facility] Comment on above: Order Comment: Speci men Type: BLOOD SPECIMENOrdering Facility: [facility] Address: [address] [address] Performed By: #### 5 7021-8 ####[facility]IA [id number] [place] [address] [place] Nucleated RBC/100 WBC (Bld) [Ratio] 0.0 /100 WBC Normal [facility] Comment on above: Order Comment: Speci men Type: BLOOD SPECIMENOrdering Facility: [facility] Address: [address] [place] [address] Performed By: #### 5 7021-8 ####[facility]CLIA [id number] [place] [address] [place] Platelet mean volume (Bld) [Entitic vol] 13.0 fL High 9.0-12.7 [facility] Comment on above: Order Comment: Speci men Type: BLOOD SPECIMENOrdering Facility: [facility] Address: [address] [place] [address] Performed By: #### 5 7021-8 ####[facility]CLIA [id number] [address] [place] Platelets (Bld) [#/Vol] 180 10*3/uL Normal 150-400 [facility] Comment on above: Order Comment: Speci men Type: BLOOD SPECIMENOrdering Facility: [facility] Address: [address] [place] [address] Result Comment: No c lot detected. Performed By: #### 5 7021-8 ####[facility]IA [id number] [place] [address] [place] RBC (Bld) [#/Vol] 5.09 10*6/uL Normal 3.90-5.20 [facility] Comment on above: Order Comment: Speci men Type: BLOOD SPECIMENOrdering Facility: [facility] Address: [address] [place] [address] Performed By: #### 5 7021-8 ####[facility]CLIA [id number] [place] [address] [place] WBC (Bld) [#/Vol] 15.46 10*3/uL High 3.70-11.00 [facility] Comment on above: Order Comment: Speci men Type: BLOOD SPECIMENOrdering Facility: [facility] Address: [place] [address] Performed By: #### 5 7021-8 ####[facility]CLIA [id number] [place] [address] [place] ECG COMPLETEon 01-31-2023 ECG COMPLETE Ventricular Rate : 8 0 BPM Atrial Rate : 80 BPM P-R Interval : 144 ms QRS Duration : 84 ms Q-T Interval : 402 ms QTC Calculation(Bazett) : 463 ms Calculated P [place] : 26 degrees Calculated R [place] : 78 degrees Calculated T [place] : 72 degrees Normal sinus rhythm Nonspecific T wave abnormality Abnormal ECG When compared with ECG of 23-NOV-2022 18:14, Nonspecific T wave abnormality now evident in Lateral leads QT has lengthened Confirmed by ANASTASIA CHENG MD ([id number]) on 01/31/2023 11:03:12 PM NAME : KATHLEEN VILLA PID : [id number] : 1995 Gender : Female Race : ORD : [id number] Procedure Date : Jan 31 2023 19:42:30 Edit Date : Jan 31 2023 23:03:15 Diagnosis: Normal sinus rhythm Nonspecific T wave abnormality Abnormal ECG When compared with ECG of 23-NOV-2022 18:14, Nonspecific T wave abnormality now evident in Lateral leads QT has lengthened Confirmed by ANASTASIA CHENG MD ([id number]) on 01/31/2023 11:03:12 PM Test Reason : STAT Location : 0 : ED 9 Overread By : ANASTASIA CHENG MD Edited By : ANASTASIA CHENG MD Referred By : , Acquired by : [facility], [facility] ED NOTEon 01-31-2023 ED NOTE HNO ID: [id number] Author: Clementina Alarcon RN Service: Nursing Author Type: Registered Nurse Type: ED Notes Filed: 01/31/2023 9:06 PM Note Text: Report to oncoming nurse. [facility] ED NOTE HNO ID: [id number] Author: Blaise Flower RN Service: ? Author Type: Registered Nurse Type: ED Notes Filed: 01/31/2023 7:21 PM Note Text: Bed: 09-ED Expected date: 01/31/23 Expected time: Means of arrival: Comments: [facility] ED Triage Noteon 01-31-2023 ED Triage Note HNO ID: [id number] Author: Huy Horton PA-C Service: ? Author Type: Physician [employer] Clerk Type: ED Triage Notes Filed: 01/31/2023 7:06 PM Note Text: ED INTAKE NOTE Patient Name: Kathleen Villa Service Date: 01/31/23 BRIEF HPI: Patient presents with chest pain and nausea/vomiting. She has a history of gastroparesis. BRIEF EXAM: Patient is actively dry heaving in the triage area, regular rate and rhythm, lungs clear to auscultation, abdomen soft and nontender. INTAKE WORKUP: Labs and imaging obtained and pending. SIGNATURE: Huy Horton PA-C [facility] Gas and Carbon monoxide pane l (BldV)on 01-31-2023 BASE DEFICIT, VENOUS -2 mmol/L Normal -2-0 [facility] Comment on above: Order Comment: Speci men Type: VENOUS BLOOD SPECIMENOrdering Facility: [facility] Address: [address] [place] [address] Performed By: #### 2 4344-4 ####[facility] THERAPYCLIA [id number] [place] [address] [place] Body temperature 98.6 [degF] Normal [facility] Comment on above: Order Comment: Speci men Type: VENOUS BLOOD SPECIMENOrdering Facility: [facility] Address: [address] [address] Performed By: #### 2 4344-4 ####[facility] THERAPYCLIA [id number] [place] [address] [place] Calcium.ionized (Bld) [Mass/Vol] 1.11 mmol/L Normal 1.08-1.30 [facility] Comment on above: Order Comment: Speci men Type: VENOUS BLOOD SPECIMENOrdering Facility: [facility] Address: [address] [address] Performed By: #### 2 4344-4 ####[facility] THERAPYCLIA [id number] [place] [address] [place] Carboxyhemoglobin (BldV) [Mass fraction] 0.8 % Normal 0.0-2.0 [facility] Comment on above: Order Comment: Speci men Type: VENOUS BLOOD SPECIMENOrdering Facility: [facility] Address: [address] [place] [address] Result Comment: Carb oxyhemoglobin Reference Range for Smokers: 2.0-8.0% Performed By: #### 2 4344-4 ####[facility] THERAPYCLIA [id number] [place] [address] [place] CO2 (BldV) [Partial pressure] 22 mm[Hg] Low 42-55 [facility] Comment on above: Order Comment: Speci men Type: VENOUS BLOOD SPECIMENOrdering Facility: [facility] Address: [address] [place] [address] Performed By: #### 2 4344-4 ####[facility] THERAPYCLIA [id number] [place] [address] [place] Glucose [Mass/Vol] 303 mg/dL High 60-105 [facility] Comment on above: Order Comment: Speci men Type: VENOUS BLOOD SPECIMENOrdering Facility: [facility] Address: [address] [place] [address] Performed By: #### 2 4344-4 ####[facility] THERAPYCLIA [id number] [place] [address] [place] HCO3 (Bld) [Moles/Vol] 18 mmol/L Low 24-28 [facility] Comment on above: Order Comment: Speci men Type: VENOUS BLOOD SPECIMENOrdering Facility: [facility] Address: [address] [place] [address] Performed By: #### 2 4344-4 ####[facility] THERAPYCLIA [id number] [place] [address] [place] Hemoglobin (Bld) [Mass/Vol] 15.2 g/dL Normal 11.5-15.5 [facility] Comment on above: Order Comment: Speci men Type: VENOUS BLOOD SPECIMENOrdering Facility: [facility] Address: [address] [address] Performed By: #### 2 4344-4 ####[facility] THERAPYCLIA [id number] [address] [place] Lactate [Moles/Vol] 2.1 mmol/L Normal 0.5-2.2 [facility] Comment on above: Order Comment: Speci men Type: VENOUS BLOOD SPECIMENOrdering Facility: [facility] Address: [address] [address] Performed By: #### 2 4344-4 ####[facility] THERAPYCLIA [id number] [address] Methemoglobin (Bld) [Mass fraction] 0.3 % Normal 0.0-1.5 [facility] Comment on above: Order Comment: Speci men Type: VENOUS BLOOD SPECIMENOrdering Facility: [facility] Address: [address] [address] Performed By: #### 2 4344-4 ####[facility] THERAPYCLIA [id number] [address] O2 THERAPY RA=Room Air Normal [facility] Comment on above: Order Comment: Speci men Type: VENOUS BLOOD SPECIMENOrdering Facility: [facility] Address: [address] [address] Performed By: #### 2 4344-4 ####[facility] THERAPYCLIA [id number] [address] [place] Oxygen (BldV) [Partial pressure] 28 mm[Hg] Low 35-45 [facility] Comment on above: Order Comment: Speci men Type: VENOUS BLOOD SPECIMENOrdering Facility: [facility] Address: [address] [address] Performed By: #### 2 4344-4 ####[facility] THERAPYCLIA [id number] [address] [place] Oxyhemoglobin (BldV) [Mass fraction] 63 % Normal 4-98 [facility] Comment on above: Order Comment: Speci men Type: VENOUS BLOOD SPECIMENOrdering Facility: [facility] Address: [address] [address] Performed By: #### 2 4344-4 ####[facility] THERAPYCLIA [id number] [place] [address] [place] pH (BldV) 7.53 [pH] High 7.32-7.42 [facility] Comment on above: Order Comment: Speci men Type: VENOUS BLOOD SPECIMENOrdering Facility: [facility] Address: [address] [address] Performed By: #### 2 4344-4 ####[facility] THERAPYCLIA [id number] [address] [place] Potassium [Moles/Vol] 3.9 mmol/L Normal 2.5-6.0 [facility] Comment on above: Order Comment: Speci men Type: VENOUS BLOOD SPECIMENOrdering Facility: [facility] Address: [address] [address] Performed By: #### 2 4344-4 ####[facility] THERAPYCLIA [id number] [address] [place] Sodium [Moles/Vol] 138 mmol/L Normal 136-144 [facility] Comment on above: Order Comment: Speci men Type: VENOUS BLOOD SPECIMENOrdering Facility: [facility] Address: [address] [place] [address] Performed By: #### 2 4344-4 ####[facility] RESPIRATORY THERAPYCLIA [id number] [address] [place] HCG QUAL BLDon 01-31-2023 HCG, QUALITATIVE Negative Normal Negative [facility] Comment on above: Order Comment: Speci men Type: BLOOD SPECIMENOrdering Facility: [facility] Address: [address] [address] Performed By: #### 2 4325-3, 80657-6, HCG ####[facility]ORY[facility]IA [id number] [place] [address] [place] HIGH SENSITIVITY TROPONIN Io n 01-31-2023 Tropinin I.cardiac panel High sensitivity method <2.5 Normal 0.0-34.0 [facility] Comment on above: Order Comment: Speci men Type: BLOOD SPECIMENOrdering Facility: [facility] Address: [address] [place] [address] Result Comment: This assay uses different antibodies than our current assay, and assays, even by the same bottle house cleaners supervisor may recognize different regions of the antibody and cannot be used interchangeably. Expect results of this assay to run higher than the previous assay. Performed By: #### H STROP ####[facility]ORYCLIA [id number] [address] [place] Hepatic function 2000 panelo n 01-31-2023 Albumin [Mass/Vol] 4.3 g/dL Normal 3.2-5.0 [facility] Comment on above: Order Comment: Speci men Type: BLOOD SPECIMENOrdering Facility: [facility] Address: [address] [place] [address] Performed By: #### 2 4325-3, 45599-0, HCG ####[facility] [id number] [place] [address] [place] ALP [Catalytic activity/Vol] 93 U/L Normal 45-117 [facility] Comment on above: Order Comment: Speci men Type: BLOOD SPECIMENOrdering Facility: [facility] Address: [address] [place] [address] Performed By: #### 2 4325-3, 41619-8, HCG ####[facility]ORYCLIA [id number] [place] [address] [place] ALT [Catalytic activity/Vol] 21 U/L Normal 13-61 [facility] Comment on above: Order Comment: Speci men Type: BLOOD SPECIMENOrdering Facility: [facility] Address: [address] [place] [address] Result Comment: Resu lts may be falsely depressed after the administration of Sulfasalazine and/or Sulfapyridine. Performed By: #### 2 4325-3, 98731-0, HCG ####[facility]ORY[facility] [id number] [address] [place] AST [Catalytic activity/Vol] 19 U/L Normal 8-34 [facility] Comment on above: Order Comment: Speci men Type: BLOOD SPECIMENOrdering Facility: [facility] Address: [address] [place] [address] Result Comment: Resu lts may be falsely depressed after the administration of Sulfasalazine and/or Sulfapyridine. Performed By: #### 2 4325-3, 51832-0, HCG ####[facility]ORYCLIA [id number] [address] [place] Bilirubin [Mass/Vol] 0.8 mg/dL Normal 0.2-1.0 [facility] Comment on above: Order Comment: Speci men Type: BLOOD SPECIMENOrdering Facility: [facility] Address: [address] [place] [address] Performed By: #### 2 4325-3, 87378-0, HCG ####[facility]ORYCL[facility] [id number] [address] [place] Bilirubin.conjugated [Mass/Vol] 0.2 mg/dL Normal 0.0-0.4 [facility] Comment on above: Order Comment: Speci men Type: BLOOD SPECIMENOrdering Facility: [facility] Address: [address] [place] [address] Performed By: #### 2 4325-3, 04159-1, HCG ####[facility]ORYCLIA [id number] [place] [address] [place] Protein [Mass/Vol] 7.3 g/dL Normal 6.0-8.5 [facility] Comment on above: Order Comment: Speci men Type: BLOOD SPECIMENOrdering Facility: [facility] Address: [address] [address] Performed By: #### 2 4325-3, 48256-1, HCG ####[facility]ORYCLIA [id number] [address] [place] Lipase SerPl-cCncon 02-01-20 23 Lipase [Catalytic activity/Vol] 21 U/L Normal 12-60 [facility] Comment on above: Order Comment: Speci men Type: BLOOD SPECIMENOrdering Facility: [facility] Address: [address] [place] [address] Performed By: #### 3 040-3 ####[facility]ORYCLIA [id number] [address] SEPSIS LACTATEon 01-31-2023 Lactate [Moles/Vol] 3.0 mmol/L High 0.4-2.0 [facility] Comment on above: Order Comment: Speci men Type: BLOOD SPECIMENOrdering Facility: [facility] Address: [address] [place] [address] Performed By: #### S LACT ####[facility]ORYCLIA [id number] [address] XR ACUTE ABD SERIES 2V ABD+C XRon 01-31-2023 XR ACUTE ABD SERIES 2V ABD+CXR * * *Final Report* * * DATE OF EXAM: Jan 31 2023 7:33PM RHX [id number] - XR ACUTE ABD SERIES 2V ABD+CXR / PROCEDURE REASON: Bowel obstruction suspected * * * * Physician Interpretation * * * * EXAM: XR ACUTE ABD SERIES 2V ABD+CXR HISTORY: Bowel obstruction suspected COMPARISON: 11/24/2022. FINDINGS: Left-sided chest port tip projects over the SVC. Loop recorder projects over the left chest. Sternotomy wires are present. No focal pulmonary opacity. No pleural effusion or pneumothorax. Cardiac silhouette and nelida are normal. No pneumoperitoneum. Curvilinear lucencies project over the pelvis, similar to previous examinations and not associated with pathology. Bowel gas pattern is not well-characterized is there is no appreciable gas. Mild right-sided colonic stool burden. No appreciable pathologic calcification. IMPRESSION: No acute cardiopulmonary disease. Nonspecific bowel gas pattern, favored fluid-filled bowel. Consider CT if concern remains high. Promotions Coordinator: PSCB Transcribe Date/Time: Jan 31 2023 7:56P Dictated by : SARAVANAN REESE MD This examination was interpreted and the report reviewed and electronically signed by: SARAVANAN REESE MD on Jan 31 2023 8:00PM EST [id number] Normal [facility] Bacteria Ur Culton 3 Bacteria identified Cx Nom (U) CULTURE, URINE: <10,000 CFU/ml Normal Urogenital Dorothy Normal [facility] Comment on above: Performed By: #### 6 30-4 ####[facility]ORYCLIA [id number] [address] OF [facility] CNNURSEon 01-25-2023 CNNURSE Nurse Visit (FAMPOR) KATHLEEN VILLA ([id number]) 1995 F CHT Date Time Provider Department 01/25/23 12:30 PM NURSE FAMP [place] F[facility]OR During your visit today, we recorded the following information about you: Radha Mandel MA 01/25/2023 1:01 PM Signed Patient here today to recollect urine as previous urine culture was contaminated. Patient concerned as that was her second collection with multiple bacteria. Urine collected, dipped, and sent out for culture. Allergies As of Date: 01/25/2023 Noted Allergy Reaction PERCOCET (OXYCODONE-ACETAMINOPH EN)01/10/2014 2 - Rash 5 - Intolerance 9 - Itching ADHESIVE TAPE (ROSINS) 09/04/2013 2 - Rash INDOMETHACIN 11/20/2003 2 - Rash KEFLEX (CEPHALEXIN) 11/12/2013 14 - Other: See Comments Comments: Makes infection worse- patient denies this on 02/25/2014 MORPHINE 08/30/2013 2 - Rash 9 - Itching ZOFRAN (ONDANSETRON HCL (PF)) 01/14/2015 14 - Other: See Comments Comments: syncope ADHESIVE 11/07/2022 2 - Rash Date Reviewed: 01/20/2023 Reviewed by: Nicolette Cox LPN - Fully Assessed Primary Visit Diagnosis:Left flank pain [R10.9] Other Visit Diagnosis:Dysuria [R30.0] Order(s):UA DIP B/O [[id number]] Order #: [id number] Prescriptions as of 01/25/2023 - prochlorperazine (COMPAZINE) 10 mg tablet Take 1 tablet by mouth every 6 hours as needed. - hyoscyamine sublingual (LEVSIN/SL) 0.125 mg (Discontinued) Dissolve 1 tablet under the tongue every 4 hours as needed. - insulin aspart U-100 (NOVOLOG U-100 INSULIN ASPART) 100 unit/mL Use in the Insulin pump for TDD of 100 units. - Lancets (MICROLET LANCET) lancets Use as instructed to test blood sugar 4 times daily. E10.65 - blood sugar diagnostic (CONTOUR NEXT TEST STRIPS) test strip Use as instructed to check blood glucose 5 times daily. E10.65 - glucagon (BAQSIMI) 3 mg/actuation nasal spray Use 1 [place] in the nose as needed for low blood sugar. May repeat after 15 minutes using a new device if there is no response. - glucose 4 gram chewable tablet Take 4 tablets by mouth as needed. - insulin glargine (LANTUS SOLOSTAR, BASAGLAR KWIKPEN) 100 unit/mL (3 mL) Inject 43 Units subcutaneously as directed in the event of Insulin pump failure. - linaCLOtide (LINZESS) 72 mcg capsule Take 1 capsule by mouth once daily. Administer on an empty stomach. Swallow whole; DO NOT crush or chew. - Acetone, Urine, Test (KETONE URINE TEST) Use as directed - promethazine (PHENERGAN) 50 mg tab(s) Take 1 tablet by mouth every 8 hours as needed. - SKYRIZI 150 mg/mL injection INJECT 150 MG UNDER THE SKIN EVERY 12 WEEKS - hydrOXYzine HCl (ATARAX) 50 mg tablet Take 50 mg by mouth every 6 hours as needed. Meds Comments as of 01/09/2020: All meds reviewed before sx. Pt has aye also for after sx. CL 01/09/20 IC PNV prenata plus multivitamin Problem List As Of Date 01/25/2023 Noted Resolved Retinal detachment [H33.20] 10/26/2012 12/25/2012 SUMMARY [V999.95] 12/25/2012 Acute chest pain [R07.9] 12/25/2012 Marfan syndrome [Q87.40] 12/25/2012 DM (diabetes mellitus) (HCC) [E11.9] 12/25/2012 Gastroparesis due to DM (HCC) [E11.43, K31.84] 12/25/2012 PTSD (post-traumatic stress disorder) [F43.10] 12/25/2012 DVT prophylaxis [Z79.899] 12/25/2012 09/04/2013 DISPOSITION AND FOLLOW-UP [V999.01] 12/25/2012 09/04/2013 HTN (hypertension) [I10] Hypertension in , antepartum [O16.9] 09/19/2013 01/08/2014 GBS (group B Streptococcus carrier), +RV cultur*11/11/2013 04/16/2014 [Z34.90] 11/22/2013 04/16/2014 Diabetes mellitus in ([facility]) [O24.919] 12/25/2013 04/16/2014 DKA (diabetic ketoacidoses) [E11.10] 01/08/2014 Aortic root aneurysm ([facility]) [I71.21] 01/08/2014 DVT prophylaxis [Z79.899] 02/25/2014 04/16/2014 care and examination [Z39.2] 02/25/2014 04/16/2014 Near syncope [R55] 06/17/2014 Dyspnea [R06.00] 11/04/2014 Pre-op testing [Z01.818] 11/28/2014 Atelectasis [J98.11] 12/10/2014 Fluid overload [E87.70] 12/10/2014 12/15/2014 Tachycardia, unspecified [R00.0] 12/10/2014 12/12/2014 Post-operative pain [G89.18] 12/10/2014 Anxiety [F41.9] 12/10/2014 12/13/2014 Pre-existing type 1 diabetes mellitus in pregna*08/05/2015 10/03/2018 Hereditary disease in family possibly affecting*10/07/2015 Diabetes (HCC) [E11.9] 10/30/2015 Abdominal pain complicating , antepart*11/12/2015 [Z34.90] 01/28/2016 03/06/2017 Type 1 diabetes mellitus with stable proliferat*03/17/2017 Chronic idiopathic constipation [K59.04] 11/18/2021 Menstrual irregularity [N92.6] 04/18/2022 Screening for STD (sexually transmitted disease*04/18/2022 Chronic nausea [R11.0] 04/18/2022 Type 1 diabetes mellitus with hyperglycemia, wi*08/16/2022 Insulin pump status [Z96.41] 08/16/2022 Gastroparesis [K31.84] 11/23/2022 11/26/2022 Generalized abdominal pain [R10.84] 12/08/2022 Encoun (more content not included)... Normal [facility] HEMOGLOBIN A1C (POC)on 01-25 HbA1c (Bld) [Mass fraction] 7.6 % Abnormal 4.2 - 5.6 % [facility] - Chemistry and C hemistry - challengeon 01-25-2023 Glucose Ql (U) Negative Neg mg/dL [facility] Ketones Ql (U) Negative Neg [facility] pH (U) 6.5 [pH] 4.5 - 8.0 [facility] Protein.monoclonal (U) [Mass/Vol] Negative Neg mg/dL [facility] - Urinalysison Nitrite Ql (U) Negative Neg [facility] No Panel Informationon 01-25 Bilirubin, Urine Negative [facility] Color/Appearance Yellow/clear [facility] Hemoglobin/Blood,Ur Negative Neg [facility] Leukocytes Negative Neg [facility] Specific [place], Ur 1.020 1.005 - 1.030 [facility], Urine 0.2 EU Normal ( <1.1) EU [facility] CNPNon 01-24-2023 CNPN Telephone (FAMPOR) KATHLEEN VILLA ([id number]) 1995 F CHT Date Time Provider Department 01/24/23 VIVI SMITH During your visit today, we recorded the following information about you: Radha Mandel MA 01/24/2023 11:44 AM Signed Yaima from [facility] called and they need an order for a port flush. Please place order and I will fax. Vivi Smith MD 01/24/2023 11:59 AM Signed Port Flush order in Outbox on RX paper as unable to write order in Epic Allergies As of Date: 01/24/2023 Noted Allergy Reaction PERCOCET (OXYCODONE-ACETAMINOPH EN)01/10/2014 2 - Rash 5 - Intolerance 9 - Itching ADHESIVE TAPE (ROSINS) 09/04/2013 2 - Rash INDOMETHACIN 11/20/2003 2 - Rash KEFLEX (CEPHALEXIN) 11/12/2013 14 - Other: See Comments Comments: Makes infection worse- patient denies this on 02/25/2014 MORPHINE 08/30/2013 2 - Rash 9 - Itching ZOFRAN (ONDANSETRON HCL (PF)) 01/14/2015 14 - Other: See Comments Comments: syncope ADHESIVE 11/07/2022 2 - Rash Date Reviewed: 01/20/2023 Reviewed by: Nicolette Cox LPN - Fully Assessed Reason for Visit: Orders [681] Prescriptions as of 01/24/2023 - prochlorperazine (COMPAZINE) 10 mg tablet Take 1 tablet by mouth every 6 hours as needed. - hyoscyamine sublingual (LEVSIN/SL) 0.125 mg (Discontinued) Dissolve 1 tablet under the tongue every 4 hours as needed. - insulin aspart U-100 (NOVOLOG U-100 INSULIN ASPART) 100 unit/mL Use in the Insulin pump for TDD of 100 units. - Lancets (MICROLET LANCET) lancets Use as instructed to test blood sugar 4 times daily. E10.65 - blood sugar diagnostic (CONTOUR NEXT TEST STRIPS) test strip Use as instructed to check blood glucose 5 times daily. E10.65 - glucagon (BAQSIMI) 3 mg/actuation nasal spray Use 1 [place] in the nose as needed for low blood sugar. May repeat after 15 minutes using a new device if there is no response. - glucose 4 gram chewable tablet Take 4 tablets by mouth as needed. - insulin glargine (LANTUS SOLOSTAR, BASAGLAR KWIKPEN) 100 unit/mL (3 mL) Inject 43 Units subcutaneously as directed in the event of Insulin pump failure. - linaCLOtide (LINZESS) 72 mcg capsule Take 1 capsule by mouth once daily. Administer on an empty stomach. Swallow whole; DO NOT crush or chew. - Acetone, Urine, Test (KETONE URINE TEST) Use as directed - promethazine (PHENERGAN) 50 mg tab(s) Take 1 tablet by mouth every 8 hours as needed. - SKYRIZI 150 mg/mL injection INJECT 150 MG UNDER THE SKIN EVERY 12 WEEKS - hydrOXYzine HCl (ATARAX) 50 mg tablet Take 50 mg by mouth every 6 hours as needed. Meds Comments as of 01/09/2020: All meds reviewed before sx. Pt has aye also for after sx. CL 01/09/20 IC PNV prenata plus multivitamin Problem List As Of Date 01/24/2023 Noted Resolved Retinal detachment [H33.20] 10/26/2012 12/25/2012 SUMMARY [V999.95] 12/25/2012 Acute chest pain [R07.9] 12/25/2012 Marfan syndrome [Q87.40] 12/25/2012 DM (diabetes mellitus) (HCC) [E11.9] 12/25/2012 Gastroparesis due to DM (HCC) [E11.43, K31.84] 12/25/2012 PTSD (post-traumatic stress disorder) [F43.10] 12/25/2012 DVT prophylaxis [Z79.899] 12/25/2012 09/04/2013 DISPOSITION AND FOLLOW-UP [V999.01] 12/25/2012 09/04/2013 HTN (hypertension) [I10] Hypertension in , antepartum [O16.9] 09/19/2013 01/08/2014 GBS (group B Streptococcus carrier), +RV cultur*11/11/2013 04/16/2014 [Z34.90] 11/22/2013 04/16/2014 Diabetes mellitus in (HCC) [O24.919] 12/25/2013 04/16/2014 DKA (diabetic ketoacidoses) [E11.10] 01/08/2014 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] 01/08/2014 DVT prophylaxis [Z79.899] 02/25/2014 04/16/2014 care and examination [Z39.2] 02/25/2014 04/16/2014 Near syncope [R55] 06/17/2014 Dyspnea [R06.00] 11/04/2014 Pre-op testing [Z01.818] 11/28/2014 Atelectasis [J98.11] 12/10/2014 Fluid overload [E87.70] 12/10/2014 12/15/2014 Tachycardia, unspecified [R00.0] 12/10/2014 12/12/2014 Post-operative pain [G89.18] 12/10/2014 Anxiety [F41.9] 12/10/2014 12/13/2014 Pre-existing type 1 diabetes mellitus in pregna*08/05/2015 10/03/2018 Hereditary disease in family possibly affecting*10/07/2015 Diabetes (HCC) [E11.9] 10/30/2015 Abdominal pain complicating , antepart*11/12/2015 [Z34.90] 01/28/2016 03/06/2017 Type 1 diabetes mellitus with stable proliferat*03/17/2017 Chronic idiopathic constipation [K59.04] 11/18/2021 Menstrual irregularity [N92.6] 04/18/2022 Screening for STD (sexually transmitted disease*04/18/2022 Chronic nausea [R11.0] 04/18/2022 Type 1 diabetes mellitus with hyperglycemia, wi*08/16/2022 Insulin pump status [Z96.41] 08/16/2022 Gastroparesis [K31.84] 11/23/2022 11/26/2022 Generalized abdominal pain [R10.84] 12/08/2022 Encounter Status:Closed by VIVI SMITH on (more content not included)... [facility] KATHLEEN VILLA ([id number]) 1995 F CHT Date Time Provider Department 01/24/23 VIVI SMITH During your visit today, we recorded the following information about you: Radha Mandel MA 01/24/2023 1:58 PM Signed ----- Message from Vivi Smith MD sent at 01/23/2023 5:58 AM EDT ----- Please call and notify patient urine culture shows multiple bacteria suggesting contamination. No uti based on this specimen Radha Mandel MA 01/24/2023 1:59 PM Signed LM for patient to call the office. Radha Mandel MA 01/25/2023 11:06 AM Signed Spoke with patient and she is concerned as she knows how to do a clean catch to collect a urine and it is showing multiple bacteria. Patient scheduled for [place] to collect another urine. Please sign orders. Thank you. Allergies As of Date: 01/24/2023 Noted Allergy Reaction PERCOCET (OXYCODONE-ACETAMINOPH EN)01/10/2014 2 - Rash 5 - Intolerance 9 - Itching ADHESIVE TAPE (ROSINS) 09/04/2013 2 - Rash INDOMETHACIN 11/20/2003 2 - Rash KEFLEX (CEPHALEXIN) 11/12/2013 14 - Other: See Comments Comments: Makes infection worse- patient denies this on 02/25/2014 MORPHINE 08/30/2013 2 - Rash 9 - Itching ZOFRAN (ONDANSETRON HCL (PF)) 01/14/2015 14 - Other: See Comments Comments: syncope ADHESIVE 11/07/2022 2 - Rash Date Reviewed: 01/20/2023 Reviewed by: Nicolette Cox LPN - Fully Assessed Reason for Visit: Results [95] Primary Visit Diagnosis:Left flank pain [R10.9] Order(s):UA DIP B/O [[id number]] Order #: [id number] FUTURE URINE CULTURE [SQURCUL] Order #: [id number] Prescriptions as of 01/25/2023 - prochlorperazine (COMPAZINE) 10 mg tablet Take 1 tablet by mouth every 6 hours as needed. - hyoscyamine sublingual (LEVSIN/SL) 0.125 mg (Discontinued) Dissolve 1 tablet under the tongue every 4 hours as needed. - insulin aspart U-100 (NOVOLOG U-100 INSULIN ASPART) 100 unit/mL Use in the Insulin pump for TDD of 100 units. - Lancets (MICROLET LANCET) lancets Use as instructed to test blood sugar 4 times daily. E10.65 - blood sugar diagnostic (CONTOUR NEXT TEST STRIPS) test strip Use as instructed to check blood glucose 5 times daily. E10.65 - glucagon (BAQSIMI) 3 mg/actuation nasal spray Use 1 [place] in the nose as needed for low blood sugar. May repeat after 15 minutes using a new device if there is no response. - glucose 4 gram chewable tablet Take 4 tablets by mouth as needed. - insulin glargine (LANTUS SOLOSTAR, BASAGLAR KWIKPEN) 100 unit/mL (3 mL) Inject 43 Units subcutaneously as directed in the event of Insulin pump failure. - linaCLOtide (LINZESS) 72 mcg capsule Take 1 capsule by mouth once daily. Administer on an empty stomach. Swallow whole; DO NOT crush or chew. - Acetone, Urine, Test (KETONE URINE TEST) Use as directed - promethazine (PHENERGAN) 50 mg tab(s) Take 1 tablet by mouth every 8 hours as needed. - SKYRIZI 150 mg/mL injection INJECT 150 MG UNDER THE SKIN EVERY 12 WEEKS - hydrOXYzine HCl (ATARAX) 50 mg tablet Take 50 mg by mouth every 6 hours as needed. Meds Comments as of 01/09/2020: All meds reviewed before sx. Pt has aye also for after sx. CL 01/09/20 IC PNV prenata plus multivitamin Problem List As Of Date 01/24/2023 Noted Resolved Retinal detachment [H33.20] 10/26/2012 12/25/2012 SUMMARY [V999.95] 12/25/2012 Acute chest pain [R07.9] 12/25/2012 Marfan syndrome [Q87.40] 12/25/2012 DM (diabetes mellitus) (HCC) [E11.9] 12/25/2012 Gastroparesis due to DM (HCC) [E11.43, K31.84] 12/25/2012 PTSD (post-traumatic stress disorder) [F43.10] 12/25/2012 DVT prophylaxis [Z79.899] 12/25/2012 09/04/2013 DISPOSITION AND FOLLOW-UP [V999.01] 12/25/2012 09/04/2013 HTN (hypertension) [I10] Hypertension in , antepartum [O16.9] 09/19/2013 01/08/2014 GBS (group B Streptococcus carrier), +RV cultur*11/11/2013 04/16/2014 [Z34.90] 11/22/2013 04/16/2014 Diabetes mellitus in (HCC) [O24.919] 12/25/2013 04/16/2014 DKA (diabetic ketoacidoses) [E11.10] 01/08/2014 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] 01/08/2014 DVT prophylaxis [Z79.899] 02/25/2014 04/16/2014 care and examination [Z39.2] 02/25/2014 04/16/2014 Near syncope [R55] 06/17/2014 Dyspnea [R06.00] 11/04/2014 Pre-op testing [Z01.818] 11/28/2014 Atelectasis [J98.11] 12/10/2014 Fluid overload [E87.70] 12/10/2014 12/15/2014 Tachycardia, unspecified [R00.0] 12/10/2014 12/12/2014 Post-operative pain [G89.18] 12/10/2014 Anxiety [F41.9] 12/10/2014 12/13/2014 Pre-existing type 1 diabetes mellitus in pregna*08/05/2015 10/03/2018 Hereditary disease in family possibly affecting*10/07/2015 Diabetes (HCC) [E11.9] 10/30/2015 Abdominal pain complicating , antepart*11/12/2015 [Z34.90] 01/28/2016 03/06/2017 Type 1 diabetes mellitus with stable proliferat*03/17/2017 Chronic idiopathic constipation [K59.04] 10/27 (more content not included)... Normal [facility] CNPN Telephone (HETRME) KATHLEEN VILLA ([id number]) 1995 F CHT Date Time Provider Department 01/24/23 VIVI SMITH HETRME During your visit today, we recorded the following information about you: Allergies As of Date: 01/24/2023 Noted Allergy Reaction PERCOCET (OXYCODONE-ACETAMINOPH EN)01/10/2014 2 - Rash 5 - Intolerance 9 - Itching ADHESIVE TAPE (ROSINS) 09/04/2013 2 - Rash INDOMETHACIN 11/20/2003 2 - Rash KEFLEX (CEPHALEXIN) 11/12/2013 14 - Other: See Comments Comments: Makes infection worse- patient denies this on 02/25/2014 MORPHINE 08/30/2013 2 - Rash 9 - Itching ZOFRAN (ONDANSETRON HCL (PF)) 01/14/2015 14 - Other: See Comments Comments: syncope ADHESIVE 11/07/2022 2 - Rash Date Reviewed: 01/20/2023 Reviewed by: Nicolette Cox LPN - Fully Assessed Reason for Visit: Appointment [186] Prescriptions as of 01/26/2023 - insulin aspart U-100 (NOVOLOG U-100 INSULIN ASPART) 100 unit/mL Use in the Insulin pump for TDD of 100 units. - prochlorperazine (COMPAZINE) 10 mg tablet Take 1 tablet by mouth every 6 hours as needed. - hyoscyamine sublingual (LEVSIN SL) 0.125 mg Dissolve 2 tablets under the tongue before meals and at bedtime for 7 days. - Lancets (MICROLET LANCET) lancets Use as instructed to test blood sugar 4 times daily. E10.65 - blood sugar diagnostic (CONTOUR NEXT TEST STRIPS) test strip Use as instructed to check blood glucose 5 times daily. E10.65 - glucagon (BAQSIMI) 3 mg/actuation nasal spray Use 1 [place] in the nose as needed for low blood sugar. May repeat after 15 minutes using a new device if there is no response. - glucose 4 gram chewable tablet Take 4 tablets by mouth as needed. - insulin glargine (LANTUS SOLOSTAR, BASAGLAR KWIKPEN) 100 unit/mL (3 mL) Inject 43 Units subcutaneously as directed in the event of Insulin pump failure. - linaCLOtide (LINZESS) 72 mcg capsule Take 1 capsule by mouth once daily. Administer on an empty stomach. Swallow whole; DO NOT crush or chew. - Acetone, Urine, Test (KETONE URINE TEST) Use as directed - promethazine (PHENERGAN) 50 mg tab(s) Take 1 tablet by mouth every 8 hours as needed. - SKYRIZI 150 mg/mL injection INJECT 150 MG UNDER THE SKIN EVERY 12 WEEKS - hydrOXYzine HCl (ATARAX) 50 mg tablet Take 50 mg by mouth every 6 hours as needed. Meds Comments as of 01/09/2020: All meds reviewed before sx. Pt has aye also for after sx. CL 01/09/20 IC PNV prenata plus multivitamin Problem List As Of Date 01/24/2023 Noted Resolved Retinal detachment [H33.20] 10/26/2012 12/25/2012 SUMMARY [V999.95] 12/25/2012 Acute chest pain [R07.9] 12/25/2012 Marfan syndrome [Q87.40] 12/25/2012 DM (diabetes mellitus) (HCC) [E11.9] 12/25/2012 Gastroparesis due to DM (HCC) [E11.43, K31.84] 12/25/2012 PTSD (post-traumatic stress disorder) [F43.10] 12/25/2012 DVT prophylaxis [Z79.899] 12/25/2012 09/04/2013 DISPOSITION AND FOLLOW-UP [V999.01] 12/25/2012 09/04/2013 HTN (hypertension) [I10] Hypertension in , antepartum [O16.9] 09/19/2013 01/08/2014 GBS (group B Streptococcus carrier), +RV cultur*11/11/2013 04/16/2014 [Z34.90] 11/22/2013 04/16/2014 Diabetes mellitus in (HCC) [O24.919] 12/25/2013 04/16/2014 DKA (diabetic ketoacidoses) [E11.10] 01/08/2014 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] 01/08/2014 DVT prophylaxis [Z79.899] 02/25/2014 04/16/2014 care and examination [Z39.2] 02/25/2014 04/16/2014 Near syncope [R55] 06/17/2014 Dyspnea [R06.00] 11/04/2014 Pre-op testing [Z01.818] 11/28/2014 Atelectasis [J98.11] 12/10/2014 Fluid overload [E87.70] 12/10/2014 12/15/2014 Tachycardia, unspecified [R00.0] 12/10/2014 12/12/2014 Post-operative pain [G89.18] 12/10/2014 Anxiety [F41.9] 12/10/2014 12/13/2014 Pre-existing type 1 diabetes mellitus in pregna*08/05/2015 10/03/2018 Hereditary disease in family possibly affecting*10/07/2015 Diabetes (HCC) [E11.9] 10/30/2015 Abdominal pain complicating , antepart*11/12/2015 [Z34.90] 01/28/2016 03/06/2017 Type 1 diabetes mellitus with stable proliferat*03/17/2017 Chronic idiopathic constipation [K59.04] 11/18/2021 Menstrual irregularity [N92.6] 04/18/2022 Screening for STD (sexually transmitted disease*04/18/2022 Chronic nausea [R11.0] 04/18/2022 Type 1 diabetes mellitus with hyperglycemia, wi*08/16/2022 Insulin pump status [Z96.41] 08/16/2022 Gastroparesis [K31.84] 11/23/2022 11/26/2022 Generalized abdominal pain [R10.84] 12/08/2022 Encounter Status:Closed by YAIMA AGUILAR on 01/26/23 [facility] Bacteria Ur Culton 3 Bacteria identified Cx Nom (U) CULTURE, URINE: 10,000-<50,000 CFU/mL Three or more organisms, no one type predominant, suggesting contamination during collection. Recollect if clinically indicated. [facility] Comment on above: Performed By: #### 6 30-4 ####[facility] [id number] [place] [id number] [place] CNOVon 01-20-2023 CNOV Office Visit (FAMPOR ) KATHLEEN VILLA ([id number]) 1995 F T Date Time Provider Department 01/20/23 11:00 AM VIVI SMITH During your visit today, we recorded the following information about you: Temperature Pulse Respiration Blood pressure 97 degrees 71/minute 18/minute 114/76 Weight Height 83.9 kg 1.74 m Vivi Smith MD 01/20/2023 3:16 PM Signed 01/20/2023 This is a 27 year old female who presents today for: follow up Appointment with GI/Dr Hylton is 02/07/23 for possible upper GI endoscope and had recommended possible surgery. She states in the last 2 weeks has had left flank pain that she is unsure of the diagnosis. So far the only diagnosis she has been given has been gastroparesis. She admits to doing less and not exercising. She states this has helped her dealing with pain. She declines pain management as she realizes pain medications would not help her condition but was counseled other modalities could be recommended. As far as DM she states her glucose levels have been in the upper 200s/. She sees Endo next week. 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 Last seen 12/08/22 PSH: + Appendectomy Denies vaginal bleeding. States her urine was normal at the ER and hospital on prior admissions. She agrees to a urine culture and UA today. 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 VAMSI 11/2014 SECTION HX 02/25/2014 amairani 37 weeks PAST SURGICAL HISTORY OF Right 01/08/2020 REMOVE IMPLANTED MATERIAL POSTERIOR SEGMENT OF EYE, EXTRAOCULAR PICC LINE INSERT/CONSULT 01/09/2014 PORT Left VITRECTOMY MECHANICAL PARS PLANA 10/29/2012 PPV (Pars Plana Vitrectomy) OD VITRECTOMY MECHANICAL PARS PLANA 05/14/2014 PPV (Pars Plana Vitrectomy)/PCIOL OS XTRNL PT ACTIV ECG TRANSMIS W/LUBA left chest wall Current Outpatient Medications Medication Sig prochlorperazine (COMPAZINE) 10 mg tablet Take 1 tablet by mouth every 6 hours as needed. Lancets (MICROLET LANCET) lancets Use as instructed to test blood sugar 4 times daily. E10.65 blood sugar diagnostic (CONTOUR NEXT TEST STRIPS) test strip Use as instructed to check blood glucose 5 times daily. E10.65 glucagon (BAQSIMI) 3 mg/actuation nasal spray Use 1 [place] in the nose as needed for low blood sugar. May repeat after 15 minutes using a new device if there is no response. glucose 4 gram chewable tablet Take 4 tablets by mouth as needed. insulin glargine (LANTUS SOLOSTAR, BASAGLAR KWIKPEN) 100 unit/mL (3 mL) Inject 43 Units subcutaneously as directed in the event of Insulin pump failure. linaCLOtide (LINZESS) 72 mcg capsule Take 1 capsule by mouth once daily. Administer on an empty stomach. Swallow whole; DO NOT crush or chew. Acetone, Urine, Test (KETONE URINE TEST) Use as directed promethazine (PHENERGAN) 50 mg tab(s) Take 1 tablet by mouth every 8 hours as needed. SKYRIZI 150 mg/mL injection INJECT 150 MG UNDER THE SKIN EVERY 12 WEEKS hydrOXYzine HCl (ATARAX) 50 mg tablet Take 50 mg by mouth every 6 hours as needed. insulin aspart U-100 (NOVOLOG U-100 INSULIN ASPART) 100 unit/mL Use in the Insulin pump for TDD of 100 units. No current facility-administered medications for this visit. Social History Tobacco Use Smoking status: Former Packs/day: 0.30 Years: 8.00 Pack years: 2.40 Types: Cigarettes Quit date: 06/2019 Years since quittin.5 Smokeless tobacco: Never Vaping Use Vaping Use: Never used Substance Use Topics Alcohol use: Yes Comment: very rarely Drug use: Yes Types: Marijuana Comment: medical card previous REVIEW OF SYSTEMS: Review of Systems Constitutional: Negative for fatigue and fever. HENT: Negative for trouble swallowing. Respiratory: Negative for shortness of breath. Cardiovascular: Negative for chest pain. Gastrointestinal: Positive for abdominal pain. Genitourinary: Negative for difficulty urinating. Musculoskeletal: Positive for back pain. Skin: Negative for rash. PHYSICAL EXAM: BP 114/76 Pulse 71 Temp (Src) 97 (Temporal) Resp 18 Ht 5' 8.5 (1.74m) Wt 185 lb (83.9kg) SpO2 98% LMP 11/26/2022 BMI 27.72 kg/(m2). Physical Exam Vitals reviewed. Constitutional: General: She is not in acute distress. Appearance: Normal appearance. She is not ill-appearing, toxic-appearing or diaphoretic. HENT: Head: Normocephalic. Right Ear: Ty (more content not included)... Normal [facility] C. trachomatis+N. gonorrhoea e DNA DANIEL+probe Ql (Unsp spec)on 01-12-2023 C. trachomatis DNA DANIEL+probe Ql (Unsp spec) Negative Normal Negative for Chlamydia trachomatis by amplificaton [facility] Comment on above: Order Comment: Speci men Type: SWAB Ordering Facility: [facility] Address: [address] [place] [address] Performed By: #### 3 6902-5 #### [facility] CLIA [id number] [address] [place] [address] [place] N. gonorrhoeae DNA DANIEL+probe Ql (Unsp spec) Negative Normal Negative for Neisseria gonorrhoeae by amplification [facility] Comment on above: Order Comment: Speci men Type: SWAB Ordering Facility: [facility] Address: [address] [place] [address] Performed By: #### 3 6902-5 #### [facility] CLIA [id number] [address] [place] [address] [place] [address] [facility] CNOVon 01-12-2023 CNOV Office Visit (OBGYMM ) KATHLEEN VILLA ([id number]) 1995 F CHT Date Time Provider Department 01/12/23 1:00 PM MADONNA TORO OBGYMM During your visit today, we recorded the following information about you: Blood pressure Weight Height Last Period 100/70 86.3 kg 1.753 m 11/26/22 Faviola Engle MA 01/12/2023 1:32 PM Signed Pt was exposed to a std. aMdonna Toro DO 01/12/2023 1:32 PM Signed Kathleen Swain Daisy is a 27 year old female coming today for chief complaint of STD screening. Patient states that she was notified by a recent sex partner that he was going to get tested for a possible STD because he has another partner that tested positive for something. Patient thinks it might be trich. Patient denies S/S of infection. OB History T1 L2 SAB0 IAB0 Ectopic0 Multiple0 Live Births2 Patient's last menstrual period was 11/26/2022 (exact date). 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 VAMSI 11/2014 SECTION HX 02/25/2014 amairani 37 weeks PAST SURGICAL HISTORY OF Right 01/08/2020 REMOVE IMPLANTED MATERIAL POSTERIOR SEGMENT OF EYE, EXTRAOCULAR PICC LINE INSERT/CONSULT 01/09/2014 PORT Left VITRECTOMY MECHANICAL PARS PLANA 10/29/2012 PPV (Pars Plana Vitrectomy) OD VITRECTOMY MECHANICAL PARS PLANA 05/14/2014 PPV (Pars Plana Vitrectomy)/PCIOL OS XTRNL PT ACTIV ECG TRANSMIS W/LUBA left chest wall FAMILY HISTORY Problem Relation Age of Onset Cancer Mother 18 cervical Thyroid Mother Multiple Sclerosis Father other (mitral valve) Father Thyroid Sister Diabetes Maternal Grandmother type 2 diabetes Cataract Other maternal great grandma Glaucoma Other maternal great grandma Social History Tobacco Use Smoking status: Former Packs/day: 0.30 Years: 8.00 Pack years: 2.40 Types: Cigarettes Quit date: 06/2019 Years since quittin.5 Smokeless tobacco: Never Vaping Use Vaping Use: Never used Substance Use Topics Alcohol use: Yes Comment: very rarely Drug use: Yes Types: Marijuana Comment: medical card previous REVIEW OF SYSTEMS GENERAL: No weight loss, malaise or fevers GI: No nausea, vomiting, or diarrhea 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 The remainder of the review of systems is noncontributory PHYSICAL EXAMINATION: BP 100/70 (BP Site: Left Arm, BP Position: Sitting, BP Cuff Size: Regular Adult) Ht 5' 9 (1.753 m) Wt 190 lb 4.8 oz (86.3 kg) LMP 11/26/2022 (Exact Date) BMI 28.10 kg/m? General: healthy, alert, cooperative, pleasant, in no acute distress, overweight Breast : Abdomen: soft, nontender, nondistended Genital Urinary: vulva/vagina no lesions or discharge, cervix no lesions, discharge, or motion tenderness, uterus is anteverted, adnexa no palpable masses Vulva: Nonerythematous, normal genitalia. Vagina: Normal vagina with normal vaginal tone. Cervix: nulliparous, pink, and no discharge. Uterus: nontender, midline, and mobile. Adnexa: Bilaterally without overt masses and nontender. Thinprep pap collected? No. Culture for GC/Chlamydia collected? Yes. Ext: no edema in LE bilaterally Skin: Clear without rash (Z11.3) Screening examination for STD (sexually transmitted disease) (primary encounter diagnosis) Plan: GC/CHLAMYDIA DNA DET, WET PREP, HEP C AB IA W/CONF SCRN, HEP B SURF AG SCRN, HIV 1 2 COMBO(AG/AB),WITH REFLEX TO DIFFERENTIATION, TREPONEMA PALLIDUM SCREEN, HERPES SIMPLEX TYPE 1 AND 2 IG Call with results. Madonna Toro, Allergies As of Date: 01/12/2023 Noted Allergy Reaction PERCOCET (OXYCODONE-ACETAMINOPH EN)01/10/2014 2 - Rash 5 - Intolerance 9 - Itching ADHESIVE TAPE (ROSINS) 09/04/2013 2 - Rash INDOMETHACIN 11/20/2003 2 - Rash KEFLEX (CEPHALEXIN) 11/12/2013 14 - Other: See Comments Comments: Makes infection worse- patient denies this on 02/25/2014 MORPHINE 08/30/2013 2 - Rash 9 - Itching ZOFRAN (ONDANSETRON HCL (PF)) 01/14/2015 14 - Other: See Comments Comments: syncope ADHESIVE 11/07/2022 2 - Rash Date Reviewed: 01/12/2023 Reviewed by: Faviola Engle MA - Fully Assessed Reason for Visit: STD [102] Primary Visit Diagnosis:Screening examination for STD (sexually transmitted disease) [Z11.3] Order(s):GC/CHLAMYDIA DNA DET [SQGCCAMP] Order (more content not included)... Normal [facility] HBV surface Ag Ser Qlon 12-26 HBV surface Ag Ql (S) Non-Reactive Normal Equivo cristina, Nonreactive [facility] Comment on above: Order Comment: Speci men Type: BLOOD SPECIMEN Ordering Facility: [facility] Address: [address] [place] [address] Result Comment: Resu lts were obtained with the AtellLifeBlinx IM IgM assay. Values obtained with different manufactures' assay methods may not be used interchangeably. Performed By: #### 3 1201-7, 5195-3, 60024-3, SYPH #### [facility] CLIA [id number] [address] [place] [address] [place] HCV Ab Ser Qlon 01-12-2023 HCV Ab Ql (S) Non-Reactive [facility] Comment on above: Order Comment: Speci men Type: BLOOD SPECIMEN Ordering Facility: [facility] Address: [address] [place] [address] Result Comment: Scre ening test negative Nonreactive HCV Antibody Screen is consistent with no HCV infection, unless recent infection is suspected or other evidence exists to indicate HCV infection. Results were obtained with the Atellica IM IgM assay. Values obtained with different manufactures' assay methods may not be used interchangeably. Performed By: #### 3 1201-7, 5195-3, 39396-1, SYPH #### [facility] CLIA [id number] [address] [place] [address] [place] HIV 1+2 Ab IA Qlon 3 HIV 1+2 Ab+HIV1 p24 Ag IA Ql Non-Reactive Normal Nonreactive [facility] Comment on above: Order Comment: Speci men Type: BLOOD SPECIMEN Ordering Facility: [facility] Address: [address] [place] [address] Result Comment: Nonr eactive: Less than 1.0 index value Specimens with an index value <1.0 are considered nonreactive for antibodies to HIV-1, HIV-2, and p24 antigen by the Atellica IM CHIV assay. Performed By: #### 3 1201-7, 5195-3, 11830-0, SYPH #### [facility] CLIA [id number] [address] [place] [address] TREPONEMA PALLIDUM SCREENon 01-12-2023 T. pallidum IgG IF Ql (S) Non-Reactive Normal Nonreactive [facility] Comment on above: Order Comment: Speci men Type: BLOOD SPECIMEN Ordering Facility: [facility] Address: [address] [place] [address] Result Comment: Samp les with an index value of less than 0.90 are considered Nonreactive for Syphilis T. pallidum antibodies. Performed By: #### 3 1201-7, 5195-3, 11977-1, SYPH #### [facility] CLIA [id number] [address] [place] [address] [place] WET PREPon 01-12-2023 WET PREP WET PREP RESULT: No Trichomonads, No yeast observed Moderate Clue cells present Normal [facility] Comment on above: Performed By: #### L [id number] #### [facility] CLIA [id number] [address] [place] [address] [place] HEMOGLOBIN A1C (POC)on 08-16 HbA1c (Bld) [Mass fraction] 7.0 % Abnormal 4.2 - 5.6 % [facility] BMPon 02-01-2022 Anion gap [Moles/Vol] 7 mmol/L Normal 5-16 [facility] Comment on above: Order Comment: Campu s: M Performed By: #### L 500.53243, L500.75869, L500.57279 ####[facility] [id number] [place], [place] [address]Li# [phone] BUN/CREA TNP Normal 15-24 [facility] Comment on above: Order Comment: Campu s: M Performed By: #### L 500.59745, L500.81933, L500.82755 ####[facility] [id number] [place], [place] [address]Mb# [phone] Calcium [Mass/Vol] 8.4 mg/dL Low 8.5-10.5 [facility] Comment on above: Order Comment: Campu s: M Result Comment: NOTE NEW NORMAL RANGE DUE TO REAGENT CHANGE Performed By: #### L 500.06246, L500.87356, L500.36918 ####[facility] [id number] [place], [place] [address]Kw# [phone] Chloride [Moles/Vol] 112 mmol/L High 98-107 [facility] Comment on above: Order Comment: Campu s: M Performed By: #### L 500.30208, L500.77125, L500.94232 ####[facility] [id number] [place], [place] [address]Hx# [phone] CO2 [Moles/Vol] 24.0 mmol/L Normal 21-32 [facility] Comment on above: Order Comment: Campu s: M Performed By: #### L 500.72463, L500.70371, L500.28689 ####[facility] [id number] [place], [place] [address]Nx# [phone] Creatinine [Mass/Vol] 0.64 mg/dL Normal 0.510-0.950 [facility] Comment on above: Order Comment: Zach s: M Result Comment: Cleopatra ents receiving either N-Acetylcysteine (NAC) orMetamizole prior to venipuncture, may have falsely depressedresults. Performed By: #### L 500.39144, L500.08426, L500.08011 ####[facility] [id number] [place], [place] [address]Ho# [phone] Glucose [Mass/Vol] 104 mg/dL High 70-100 [facility] Comment on above: Order Comment: Zach richter: Millicent Result Comment: 70-1 00- Normal Fasting; 100-125 Impaired Fasting; greaterthan 126 on more than one result- Diabetes. ADA guidelines.Results may be falsely elevated after the administration ofSulfapyridine.Results may be falsely depressed after the administration ofSulfasalazine. Performed By: #### L 500.13911, L500.63351, L500.70278 ####[facility] [id number] [place], [place] [address]Tw# [phone] Potassium [Moles/Vol] 3.7 mmol/L Normal 3.5-5.1 [facility] Comment on above: Order Comment: Zach s: M Result Comment: Slig ht Hemolysis, Result may be affected. Performed By: #### L 500.35906, L500.50991, L500.14727 ####[facility] [id number] [place], [place] [address]Pu# [phone] Sodium [Moles/Vol] 143 mmol/L Normal 136-145 [facility] Comment on above: Order Comment: Zach Ricks Performed By: #### L 500.78655, L500.61246, L500.55036 ####[facility] [id number] [place], [place] [address]Zb# [phone] Urea nitrogen [Mass/Vol] 5 mg/dL Low 7-26 [facility] Comment on above: Order Comment: Campu s: M Performed By: #### L 500.53284, L500.38910, L500.41589 ####[facility] [id number] [place], [place] [address]Ns# [phone] CBC W/DIFFon 02-01-2022 BASO ABS 0.10 K/CU MM Normal 0-0.2 [facility] Comment on above: Order Comment: Campu s: M Performed By: #### L 200.05043 ####[address] [address]Ld# [phone] Basophils/100 WBC (Bld) 0.6 % Normal 0-2 [facility] Comment on above: Order Comment: Campu s: M Performed By: #### L 200.16200 ####[place] [address]Ph# [phone] EOS ABS 0.10 K/CU MM Normal 0-0.5 [facility] Comment on above: Order Comment: Campu s: M Performed By: #### L 200.85856 ####[facility] [id number] [place], [place] [address]Ph# [phone] Eosinophils/100 WBC (Bld) 1.3 % Normal 0-5 [facility] Comment on above: Order Comment: Campu s: M Performed By: #### L 200.10366 ####[facility] [id number] [place] [address]Ao# [phone] Erythrocyte distribution width (RBC) [Ratio] 13.8 % Normal 11-14.5 [facility] Comment on above: Order Comment: Campu s: M Performed By: #### L 200.86078 ####[facility] [id number] [place] [address]Hf# [phone] Hematocrit (Bld) [Volume fraction] 36.9 % Normal 35.0-47.0 [facility] Comment on above: Order Comment: Campu s: M Performed By: #### L 200.62275 ####[facility] [id number] [place] [address]Mf# [phone] Hemoglobin (Bld) [Mass/Vol] 12.3 g/dL Normal 11.5-15.5 [facility] Comment on above: Order Comment: Campu s: M Performed By: #### L 200.70037 ####[facility] [id number] [place], [place] [address]Ph# [phone] IMMATR GRAN ABS 0.20 K/CU MM Normal Less than 2 [facility] Comment on above: Order Comment: Campu s: M Performed By: #### L 200.69778 ####[place] [address]Ph# [phone] IMMATURE GRAN % 2.2 % Normal Less than 2 [facility] Comment on above: Order Comment: Campu s: M Performed By: #### L 200.82044 ####[place] [address]Ph# [phone] LYMPH ABS 3.70 K/CU MM Normal 0.9-4.4 [facility] Comment on above: Order Comment: Campu s: M Performed By: #### L 200.20634 ####[address] [address]Tu# [phone] Lymphocytes/100 WBC (Bld) 33.6 % Normal 20-40 [facility] Comment on above: Order Comment: Campu s: M Performed By: #### L 200.20903 ####[facility] [id number] [place] [address]Se# [phone] MCHC (RBC) [Mass/Vol] 33.3 g/dL Normal 32.0-36.0 [facility] Comment on above: Order Comment: Campu s: M Performed By: #### L 200.27539 ####[facility] [id number] [place], [place] [address]Ph# [phone] MCV (RBC) [Entitic vol] 86.8 fL Normal 80.0-99.0 [facility] Comment on above: Order Comment: Campu s: M Performed By: #### L 200.36116 ####[facility] [id number] [place], [place] [address]Yp# [phone] MONO ABS 0.80 K/CU MM Normal 0.1-1.1 [facility] Comment on above: Order Comment: Campu s: M Performed By: #### L 200.91500 ####[place] [address]Ph# [phone] Monocytes/100 WBC (Bld) 7.3 % Normal 2-10 [facility] Comment on above: Order Comment: Campu s: M Performed By: #### L 200.93403 ####[place] [address]Ph# [phone] NEUTROPHIL ABS 6.00 K/CU MM Normal 2.0-8.3 [facility] Comment on above: Order Comment: Campu s: M Performed By: #### L 200.13052 ####[facility] [id number] [place], [place] [address]Ph# [phone] Neutrophils/100 WBC (Bld) 55.0 % Normal 45-75 [facility] Comment on above: Order Comment: Campu s: M Performed By: #### L 200.97525 ####[facility] [id number] [place], [place] [address]Ph# [phone] Nucleated RBC/100 WBC (Bld) [Ratio] 0.0 % Normal Less than 1 [facility] Comment on above: Order Comment: Campu s: M Performed By: #### L 200.89731 ####[facility] [id number] [place] [address]Mt# [phone] Platelet mean volume (Bld) [Entitic vol] 11.3 fL Normal 9.4-12.4 [facility] Comment on above: Order Comment: Campu s: M Performed By: #### L 200.21197 ####[facility] [id number] [place], [place] [address]Mv# [phone] PLT 173 K/CU MM Normal 150-450 [facility] Comment on above: Order Comment: Campu s: M Performed By: #### L 200.14216 ####[facility] [id number] [place], [place] [address]Ds# [phone] RBC 4.25 M/CU MM Normal 3.90-5.30 [facility] Comment on above: Order Comment: Campu s: M Performed By: #### L 200.87305 ####[facility] [id number] [place], [place] [address]Jn# [phone] WBC 10.9 K/CUMM Normal 4.5-11.0 [facility] Comment on above: Order Comment: Campu s: M Performed By: #### L 200.42403 ####[facility] [id number] [place] [address]Ls# [phone] DISCH.SUMon 02-01-2022 DISCH.SUM Normal [facility] GFR ESTon 02-01-2022 IF AMER Greater than 60 Normal [facility] Comment on above: Order Comment: Campu s: M Performed By: #### L 500.69553, L500.95664, L500.95721 ####[facility] [id number] [place], [place] [address]Tt# [phone] IF non-AFR AMER Greater than 60 Normal [facility] Comment on above: Order Comment: Campu s: M Performed By: #### L 500.88985, L500.36891, L500.63394 ####[facility] [id number] [place], [place] [address]Cj# [phone] GLUCOSE METERon 02-01-2022 Glucose [Mass/Vol] 291 mg/dL High 70-115 [facility] Glucose [Mass/Vol] 89 mg/dL Normal 70-115 [facility] MAGNESIUMon 02-01-2022 Magnesium [Mass/Vol] 2.0 mg/dL Normal 1.6-2.6 [facility] Comment on above: Order Comment: Campu s: M Performed By: #### L 500.58728, L500.28183, L500.45354 ####[facility] QUHNXIVYCC4593 [place], [place] [address]Om# [phone] BMPon 01-31-2022 Anion gap [Moles/Vol] 12 mmol/L Normal 5-16 [facility] [place] Comment on above: Order Comment: Campu s: M Performed By: #### L 500.17708, L500.46133, L500.94186 ####[facility] QXRMKHWDMF5555 [place], [place] [address]Bj# [phone] Calcium [Mass/Vol] 9.1 mg/dL Normal 8.5-10.5 [facility] Comment on above: Order Comment: Campu s: M Result Comment: NOTE NEW NORMAL RANGE DUE TO REAGENT CHANGE Performed By: #### L 500.88932, L500.23982, L500.53941 ####[facility] KWJGQFRKNA8537 [place], [place] [address]Ap# [phone] Chloride [Moles/Vol] 106 mmol/L Normal 98-107 [facility] Comment on above: Order Comment: Campu s: M Performed By: #### L 500.35171, L500.64276, L500.01704 ####[facility] NBNZNOKTKR2437 [place], [place] [address]Zq# [phone] CO2 [Moles/Vol] 24.0 mmol/L Normal 21-32 [facility] Comment on above: Order Comment: Campu s: M Performed By: #### L 500.69938, L500.67156, L500.74898 ####[facility] LRSYZDMOKY4735 [place], [place] [address]Df# [phone] Creatinine [Mass/Vol] 0.61 mg/dL Normal 0.510-0.950 [facility] [place] Comment on above: Order Comment: Campu s: M Result Comment: Cleopatra ents receiving either N-Acetylcysteine (NAC) orMetamizole prior to venipuncture, may have falsely depressedresults. Performed By: #### L 500.84930, L500.68761, L500.97089 ####[facility] HQNTRKIMPJ4389 [place], [place] [address]Tc# [phone] Glucose [Mass/Vol] 167 mg/dL High 70-100 [facility] Comment on above: Order Comment: Campu s: M Result Comment: Delt a check [id number] Normal Fasting; 100-125 Impaired Fasting; greaterthan 126 on more than one result- Diabetes. ADA guidelines.Results may be falsely elevated after the administration ofSulfapyridine.Results may be falsely depressed after the administration ofSulfasalazine. Performed By: #### L 500.20837, L500.62851, L500.72284 ####[facility] KDZDXHAIXP7516 [place], [place] [address]Hz# [phone] Potassium [Moles/Vol] 3.7 mmol/L Normal 3.5-5.1 [facility] Comment on above: Order Comment: Campu s: M Result Comment: Slig ht Hemolysis, Result may be affected. Performed By: #### L 500.06301, L500.25585, L500.45120 ####[facility] HBUPSUMXSW8948 [place], [place] [address]Pr# [phone] Sodium [Moles/Vol] 142 mmol/L Normal 136-145 [facility] Comment on above: Order Comment: Campu s: M Performed By: #### L 500.25847, L500.41933, L500.55473 ####[facility] UOJWJDQRWX3091 [place], [place] [address]Zd# [phone] Urea nitrogen [Mass/Vol] 7 mg/dL Normal 7-26 [facility] Comment on above: Order Comment: Campu s: M Performed By: #### L 500.64677, L500.60657, L500.37230 ####[facility] K[address]ZTOREMC[address] [place] [address]Dt# [phone] Urea nitrogen/Creatinine [Mass ratio] 11 mg/mg Low 15-24 [facility] [place] Comment on above: Order Comment: Campu s: M Performed By: #### L 500.48258, L500.47732, L500.54590 ####[facility] Q[address]KAVMJS[address] [place] [address]Oe# [phone] CBC W/DIFFon 01-31-2022 BASO ABS 0.10 K/CU MM Normal 0-0.2 [facility] [place] Comment on above: Order Comment: Campu s: M Performed By: #### L 200.41863 ####[address] [address]Pf# [phone] Basophils/100 WBC (Bld) 0.5 % Normal 0-2 [facility] [place] Comment on above: Order Comment: Campu s: M Performed By: #### L 200.24681 ####[facility] [id number] [place] [address]Rb# [phone] EOS ABS 0.00 K/CU MM Normal 0-0.5 [facility] [place] Comment on above: Order Comment: Campu s: M Performed By: #### L 200.05962 ####[facility] WWKAQNYCYB[address] [place] [address]Pf# [phone] Eosinophils/100 WBC (Bld) 0.1 % Normal 0-5 [facility] [place] Comment on above: Order Comment: Campu s: M Performed By: #### L 200.06296 ####[facility] NKWPIAULCO[address] [place] [address]Ik# [phone] Erythrocyte distribution width (RBC) [Ratio] 13.9 % Normal 11-14.5 [facility] [place] Comment on above: Order Comment: Campu s: M Performed By: #### L 200.88575 ####[facility] [id number] [place] [address]Gd# [phone] Hematocrit (Bld) [Volume fraction] 37.5 % Normal 35.0-47.0 [facility] [place] Comment on above: Order Comment: Campu s: M Performed By: #### L 200.52613 ####[facility] [address]ULKULJXL[address] [place] [address]Hr# [phone] Hemoglobin (Bld) [Mass/Vol] 12.3 g/dL Normal 11.5-15.5 [facility] Comment on above: Order Comment: Campu s: M Performed By: #### L 200.17008 ####[place] [address]Ph# [phone] IMMATR GRAN ABS 0.30 K/CU MM Normal Less than 2 [facility] [place] Comment on above: Order Comment: Campu s: M Performed By: #### L 200.41417 ####[place] [address]Ph# [phone] IMMATURE GRAN % 1.9 % Normal Less than 2 [facility] [place] Comment on above: Order Comment: Campu s: M Performed By: #### L 200.22135 ####[place] [address]Ph# [phone] LYMPH ABS 4.00 K/CU MM Normal 0.9-4.4 [facility] Comment on above: Order Comment: Campu s: M Performed By: #### L 200.22824 ####[facility] UEXISRGFZK[address] [place], [place] [address]Ph# [phone] Lymphocytes/100 WBC (Bld) 24.8 % Normal 20-40 [facility] Comment on above: Order Comment: Campu s: M Performed By: #### L 200.11892 ####[facility] [id number] [place] [address]Rt# [phone] MCHC (RBC) [Mass/Vol] 32.8 g/dL Normal 32.0-36.0 [facility] [place] Comment on above: Order Comment: Campu s: M Performed By: #### L 200.61393 ####[facility] SFXYCSCZZI9719 [place], [place] [address]Ez# [phone] MCV (RBC) [Entitic vol] 87.6 fL Normal 80.0-99.0 [facility] Comment on above: Order Comment: Campu s: M Performed By: #### L 200.63575 ####[place] [address]Ph# [phone] MONO ABS 1.00 K/CU MM Normal 0.1-1.1 [facility] Comment on above: Order Comment: Campu s: M Performed By: #### L 200.16997 ####[place] [address]Ph# [phone] Monocytes/100 WBC (Bld) 6.2 % Normal 2-10 [facility] Comment on above: Order Comment: Campu s: M Performed By: #### L 200.67756 ####[place] [address]Ph# [phone] NEUTROPHIL ABS 10.60 K/CU MM High 2.0-8.3 [facility] Comment on above: Order Comment: Campu s: M Performed By: #### L 200.51849 ####[place] [address]Ph# [phone] Neutrophils/100 WBC (Bld) 66.5 % Normal 45-75 [facility] Comment on above: Order Comment: Campu s: M Performed By: #### L 200.74192 ####[facility] ECHBXEHNLO[address] [place] [address]Ps# [phone] Nucleated RBC/100 WBC (Bld) [Ratio] 0.0 % Normal Less than 1 [facility] Comment on above: Order Comment: Campu s: M Performed By: #### L 200.44523 ####[facility] XBDVYOEEKJ[address] [place], [place] [address]Ph# [phone] Platelet mean volume (Bld) [Entitic vol] 12.0 fL Normal 9.4-12.4 [facility] Comment on above: Order Comment: Campu s: M Performed By: #### L 200.94102 ####[facility] ZZRWENQCGZ4366 [place], [place] [address]Hb# [phone] PLT 183 K/CU MM Normal 150-450 [facility] Comment on above: Order Comment: Campu s: M Performed By: #### L 200.21223 ####[facility] XZWNALSJXV4595 [place], [place] [address]Rz# [phone] RBC 4.28 M/CU MM Normal 3.90-5.30 [facility] Comment on above: Order Comment: Campu s: M Performed By: #### L 200.72138 ####[facility] GWTWYTKOQS5207 [place], [place] [address]Nv# [phone] WBC 16.0 K/CUMM High 4.5-11.0 [facility] [place] Comment on above: Order Comment: Campu s: M Performed By: #### L 200.84185 ####[facility] CHVHMCDXDE5366 [place], [place] [address]Pu# [phone] GFR ESTon 01-31-2022 IF AMER Greater than 60 Normal [facility] Comment [facility]: Order Comment: Campu s: M Performed By: #### L 500.50919, L500.12170, L500.07774 ####[facility] DPWPSJIVTE1136 [place], [place] [address]Ke# [phone] IF non-AFR AMER Greater than 60 Normal [facility] [place] Comment on above: Order Comment: Campu s: M Performed By: #### L 500.87231, L500.69080, L500.01791 ####[facility] GCOFEYKPCA7887 [place], [place] [address]Vy# [phone] GLUCOSE METERon 01-31-2022 Glucose [Mass/Vol] 233 mg/dL High 70-115 [facility] Glucose [Mass/Vol] 216 mg/dL High 70-115 [facility] Glucose [Mass/Vol] 171 mg/dL High 70-115 [facility] [place] Glucose [Mass/Vol] 230 mg/dL High 70-115 [facility] [place] Glucose [Mass/Vol] 284 mg/dL High 70-115 [facility] MAGNESIUMon 01-31-2022 Magnesium [Mass/Vol] 1.8 mg/dL Normal 1.6-2.6 [facility] Comment on above: Order Comment: Campu s: M Performed By: #### L 500.18988, L500.33436, L500.96380 ####[facility] BYRQYQIIPH6786 [place], [place] [address]Xs# [phone] PROG IMSon 01-31-2022 PROG IMS Normal [facility] Progress Note-Hospitalist Normal [facility] BMPon 01-30-2022 Anion gap [Moles/Vol] 8 mmol/L Normal 5-16 [facility] Comment on above: Order Comment: Campu s: M Performed By: #### L 500.36506, L500.09218 ####[facility] BFCYNUUVRY7341 [place], [place] [address]Jt# [phone] Calcium [Mass/Vol] 8.7 mg/dL Normal 8.5-10.5 [facility] Comment on above: Order Comment: Campu s: M Result Comment: NOTE NEW NORMAL RANGE DUE TO REAGENT CHANGE Performed By: #### L 500.86283, L500.74752 ####[facility] GSHKIAQPDL5233 [place], [place] [address]Ig# [phone] Chloride [Moles/Vol] 114 mmol/L High 98-107 [facility] Comment on above: Order Comment: Campu s: M Performed By: #### L 500.10517, L500.68103 ####[facility] OUSWFYSDBB0033 [place], [place] [address]Hf# [phone] CO2 [Moles/Vol] 22.0 mmol/L Normal 21-32 [facility] Comment on above: Order Comment: Campu s: M Performed By: #### L 500.84582, L500.12021 ####[facility] HNGBVIAHPV4327 [place], [place] [address]Zt# [phone] Creatinine [Mass/Vol] 0.68 mg/dL Normal 0.510-0.950 [facility] Comment on above: Order Comment: Campu s: M Result Comment: Cleopatra ents receiving either N-Acetylcysteine (NAC) orMetamizole prior to venipuncture, may have falsely depressedresults. Performed By: #### L 500.33244, L500.99404 ####[facility] GVUSANKXME5101 [place], [place] [address]Yy# [phone] Glucose [Mass/Vol] 87 mg/dL Normal 70-100 [facility] Comment on above: Order Comment: Campu s: M Result Comment: 70-1 00- Normal Fasting; 100-125 Impaired Fasting; greaterthan 126 on more than one result- Diabetes. ADA guidelines.Results may be falsely elevated after the administration ofSulfapyridine.Results may be falsely depressed after the administration ofSulfasalazine. Performed By: #### L 500.52983, L500.28026 ####[facility] EZCQWXQOUE5654 [place], [place] [address]Yp# [phone] Potassium [Moles/Vol] 3.2 mmol/L Low 3.5-5.1 [facility] Comment on above: Order Comment: Campu s: M Result Comment: Slig ht Hemolysis, Result may be affected. Performed By: #### L 500.46629, L500.63675 ####[facility] LEDWXPPOOS8204 [place], [place] [address]Pg# [phone] Sodium [Moles/Vol] 144 mmol/L Normal 136-145 [facility] Comment on above: Order Comment: Campu s: M Performed By: #### L 500.78223, L500.73480 ####[facility] ZGWEKWDPWM2504 [place], [place] [address]My# [phone] Urea nitrogen [Mass/Vol] 14 mg/dL Normal 7-26 [facility] [place] Comment on above: Order Comment: Campu s: M Performed By: #### L 500.78509, L500.32585 ####[facility] HRSJLZSGDW1276 [place], [place] [address]Jt# [phone] Urea nitrogen/Creatinine [Mass ratio] 20 mg/mg Normal 15-24 [facility] Comment on above: Order Comment: Campu s: M Performed By: #### L 500.85380, L500.46442 ####[facility] AFLGVBGAMP2106 [place], [place] [address]Wn# [phone] Anion gap [Moles/Vol] 5 mmol/L Normal 5-16 [facility] Comment on above: Order Comment: Campu s: M Performed By: #### L 500.77933, L500.55830 ####[facility] GRKTYVOKWK7496 [place], [place] [address]Ap# [phone] Calcium [Mass/Vol] 9.0 mg/dL Normal 8.5-10.5 [facility] Comment on above: Order Comment: Campu s: M Result Comment: NOTE NEW NORMAL RANGE DUE TO REAGENT CHANGE Performed By: #### L 500.18578, L500.55169 ####[facility] VNMXVCTRVI7848 [place], [place] [address]Rd# [phone] Chloride [Moles/Vol] 114 mmol/L High 98-107 [facility] Comment on above: Order Comment: Campu s: M Result Comment: Delt a check reviewed Performed By: #### L 500.87227, L500.78746 ####[facility] ZCSMPMNEML8665 [place], [place] [address]Zn# [phone] CO2 [Moles/Vol] 22.0 mmol/L Normal 21-32 [facility] Comment on above: Order Comment: Campu s: M Result Comment: Delt a check reviewed Performed By: #### L 500.98711, L500.12154 ####[facility] [address]QAJZHCMK[address] [place] [address]Wl# [phone] Creatinine [Mass/Vol] 0.74 mg/dL Normal 0.510-0.950 [facility] [place] Comment on above: Order Comment: Campu s: M Result Comment: Cleopatra ents receiving either N-Acetylcysteine (NAC) orMetamizole prior to venipuncture, may have falsely depressedresults. Performed By: #### L 500.26576, L500.56544 ####[facility] ZSNZQCANFC4093 [place], [place] [address]Hn# [phone] Glucose [Mass/Vol] 95 mg/dL Normal 70-100 [facility] Comment on above: Order Comment: Campu s: M Result Comment: 70-1 00- Normal Fasting; 100-125 Impaired Fasting; greaterthan 126 on more than one result- Diabetes. ADA guidelines.Results may be falsely elevated after the administration ofSulfapyridine.Results may be falsely depressed after the administration ofSulfasalazine. Performed By: #### L 500.38718, L500.33070 ####[facility] VSCPVEMPZS2560 [place], [place] [address]Mg# [phone] Potassium [Moles/Vol] 3.6 mmol/L Normal 3.5-5.1 [facility] Comment on above: Order Comment: Campu s: M Performed By: #### L 500.50822, L500.30309 ####[facility] NYCSGPLNWT3877 [place], [place] [address]Dq# [phone] Sodium [Moles/Vol] 141 mmol/L Normal 136-145 [facility] Comment on above: Order Comment: Campu s: M Performed By: #### L 500.98222, L500.50370 ####[facility] PBMERIRSQT9058 [place], [place] [address]Oq# [phone] Urea nitrogen [Mass/Vol] 18 mg/dL Normal 7-26 [facility] Comment on above: Order Comment: Campu s: M Performed By: #### L 500.84081, L500.47985 ####[facility] DUJAMTGSTR2526 [place] [address]Ph# [phone] Urea nitrogen/Creatinine [Mass ratio] 24 mg/mg Normal 15-24 [facility] [place] Comment on above: Order Comment: Benjiu s: M Performed By: #### L 500.20770, L500.17973 ####[facility] SYIPNVLEKV6992 [place], [place] [address]Mq# [phone] CBC W/DIFFon 01-30-2022 BASO ABS 0.00 K/CU MM Normal 0-0.2 [facility] Comment on above: Order Comment: Campu s: MRN/MD Draw Performed By: #### L 200.00542 ####[facility] [address]PUNFVNUEE[address] [place], [place] [address]Ph# [phone] Basophils/100 WBC (Bld) 0.2 % Normal 0-2 [facility] Comment on above: Order Comment: Campu s: MRN/MD Draw Performed By: #### L 200.79546 ####[facility] [address]ZWSXSSB[address] [place] [address]At# [phone] EOS ABS 0.00 K/CU MM Normal 0-0.5 [facility] Comment on above: Order Comment: Campu s: MRN/MD Draw Performed By: #### L 200.62452 ####[facility] CSRXLAABZZ[address] [place] [address]Ca# [phone] Eosinophils/100 WBC (Bld) 0.0 % Normal 0-5 [facility] Comment on above: Order Comment: Campu s: MRN/MD Draw Performed By: #### L 200.84441 ####[facility] RSRUBICXTZ[address] [place] [address]Cl# [phone] Erythrocyte distribution width (RBC) [Ratio] 14.3 % Normal 11-14.5 [facility] Comment on above: Order Comment: Campu s: MRN/MD Draw Performed By: #### L 200.70534 ####[facility] FEWEWZWENI7[address] [place], [place] [address]Ph# [phone] Hematocrit (Bld) [Volume fraction] 34.4 % Low 35.0-47.0 [facility] Comment on above: Order Comment: Campu s: MRN/MD Draw Performed By: #### L 200.59260 ####[facility] TNFSVEIQGW[address] [place], [place] [address]Ph# [phone] Hemoglobin (Bld) [Mass/Vol] 11.3 g/dL Low 11.5-15.5 [facility] Comment on above: Order Comment: Campu s: MRN/MD Draw Performed By: #### L 200.85850 ####[facility] QSMLKTPIBW[address] [place] [address]# [phone] IMMATR GRAN ABS 0.20 K/CU MM Normal Less than 2 [facility] Comment on above: Order Comment: Benjiu s: MRN/MD Draw Performed By: #### L 200.17881 ####[facility] MDPSZGXUYQ[address] [place], [place] [address]Ph# [phone] IMMATURE GRAN % 0.8 % Normal Less than 2 [facility] Comment on above: Order Comment: Benjiu s: MRN/MD Draw Performed By: #### L 200.41734 ####[facility] WJVKALVORO[address] [place], [place] [address]Ph# [phone] LYMPH ABS 2.20 K/CU MM Normal 0.9-4.4 [facility] Comment on above: Order Comment: Campu s: MRN/MD Draw Performed By: #### L 200.73314 ####[facility] HUUCDVIFKC[address] [place], [place] [address]Ph# [phone] Lymphocytes/100 WBC (Bld) 9.0 % Low 20-40 [facility] Comment on above: Order Comment: Campu s: MRN/MD Draw Performed By: #### L 200.99006 ####[facility] IWBJEBGNZL[address] [place], [place] [address]Ph# [phone] MCHC (RBC) [Mass/Vol] 32.8 g/dL Normal 32.0-36.0 [facility] [place] Comment on above: Order Comment: Campu s: MRN/MD Draw Performed By: #### L 200.35984 ####[facility] FLLDBYOHEB9902 [place], [place] [address]Bj# [phone] MCV (RBC) [Entitic vol] 88.0 fL Normal 80.0-99.0 [facility] Comment on above: Order Comment: Campu s: MRN/MD Draw Performed By: #### L 200.93787 ####[facility] ZCWAGLEGPN9114 [place], [place] [address]Xk# [phone] MONO ABS 1.60 K/CU MM High 0.1-1.1 [facility] Comment on above: Order Comment: Benjiu s: MRN/MD Draw Performed By: #### L 200.18877 ####[facility] SFFARGFJFS1084 [place] [address]Ph# [phone] Monocytes/100 WBC (Bld) 6.5 % Normal 2-10 [facility] Comment on above: Order Comment: Benjiu s: MRN/MD Draw Performed By: #### L 200.41224 ####[facility] XSVRIAEXRL0886 [place], [place] [address]Mz# [phone] NEUTROPHIL ABS 20.60 K/CU MM High 2.0-8.3 [facility] Comment on above: Order Comment: Campu s: MRN/MD Draw Performed By: #### L 200.91428 ####[facility] PYLYIXCZNS6093 [place], [place] [address]Mc# [phone] Neutrophils/100 WBC (Bld) 83.5 % High 45-75 [facility] Comment on above: Order Comment: Campu s: MRN/MD Draw Performed By: #### L 200.77081 ####[facility] NLFESVRTMI6662 [place], [place] [address]Om# [phone] Nucleated RBC/100 WBC (Bld) [Ratio] 0.0 % Normal Less than 1 [facility] Comment on above: Order Comment: Campu s: MRN/MD Draw Performed By: #### L 200.91017 ####[facility] JWDIBICFZZ9888 [place], [place] [address]Ia# [phone] Platelet mean volume (Bld) [Entitic vol] 12.0 fL Normal 9.4-12.4 [facility] Comment on above: Order Comment: Campu s: MRN/MD Draw Performed By: #### L 200.87654 ####[facility] LJABRITONZ7649 [place], [place] [address]Wv# [phone] PLT 198 K/CU MM Normal 150-450 [facility] Comment on above: Order Comment: Campu s: MRN/MD Draw Performed By: #### L 200.62966 ####[facility] DGEIVBVUBG4938 [place], [place] [address]Wi# [phone] RBC 3.91 M/CU MM Normal 3.90-5.30 [facility] Comment on above: Order Comment: Campu s: MRN/MD Draw Performed By: #### L 200.61674 ####[facility] OLWMTEJGFX0271 [place], [place] [address]Yg# [phone] WBC 24.7 K/CUMM High 4.5-11.0 [facility] Comment on above: Order Comment: Campu s: MRN/MD Draw Performed By: #### L 200.90965 ####[facility] BTNLLUVCWX0943 [place], [place] [address]Yr# [phone] GFR ESTon 01-30-2022 IF AMER Greater than 60 Normal [facility] Comment on above: Order Comment: Campu s: M Performed By: #### L 500.28414, L500.76530 ####[facility] FHQYCVLRUU5565 [place], [place] [address]Hj# [phone] IF non-AFR AMER Greater than 60 Normal [facility] Comment on above: Order Comment: Campu s: M Performed By: #### L 500.40241, L500.88501 ####[facility] WLLIJBARHK2117 [place], [place] [address]Et# [phone] IF AMER Greater than 60 Normal [facility] Comment on above: Order Comment: Campu s: M Performed By: #### L 500.96399, L500.96694 ####[facility] PSRWOVWBLD1309 [place], [place] [address]En# [phone] IF non-AFR AMER Greater than 60 Normal [facility] Comment on above: Order Comment: Campu s: M Performed By: #### L 500.81518, L500.63865 ####[facility] CNVLDGWVCV4903 [place], [place] [address]Bw# [phone] GLUCOSE METERon 01-30-2022 Glucose [Mass/Vol] 214 mg/dL High 70-115 [facility] Glucose [Mass/Vol] 219 mg/dL High 70-115 [facility] Glucose [Mass/Vol] 114 mg/dL Normal 70-115 [facility] Glucose [Mass/Vol] 125 mg/dL High 70-115 [facility] Glucose [Mass/Vol] 120 mg/dL High 70-115 [facility] Glucose [Mass/Vol] 86 mg/dL Normal 70-115 [facility] Glucose [Mass/Vol] 134 mg/dL High 70-115 [facility] Glucose [Mass/Vol] 105 mg/dL Normal 70-115 [facility] [place] Glucose [Mass/Vol] 94 mg/dL Normal 70-115 [facility] [place] Glucose [Mass/Vol] 189 mg/dL High 70-115 [facility] [place] Glucose [Mass/Vol] 122 mg/dL High 70-115 [facility] [place] Glucose [Mass/Vol] 188 mg/dL High 70-115 [facility] [place] Glucose [Mass/Vol] 206 mg/dL High 70-115 [facility] [place] MAGNESIUMon 01-30-2022 Magnesium [Mass/Vol] 1.9 mg/dL Normal 1.6-2.6 [facility] [place] Comment on above: Order Comment: Campu s: MRN/ Draw Performed By: #### [id number], [id number] ####[facility] [id number] [place], [place] [address]Wp# [phone] PHOSon 01-30-2022 Phosphate [Mass/Vol] 2.20 mg/dL Low 2.5-4.9 [facility] Comment on above: Order Comment: Zach s: MRN/MD Draw Result Comment: Elev ated m-protein (paraprotein) levels in the serum may beexhibited in patients with monoclonal gammopathies, causingfalsely elevated inorganic phosphorus results. Performed By: #### L 500.34658, L500.73848 ####[facility] USXQYPAPKC7507 [place], [place] [address]El# [phone] PROG IMSon 01-30-2022 PROG IMS Normal [facility] Progress Note-Hospitalist Normal [facility] PROG.INTENon 01-30-2022 PROG.INTEN Normal [facility] Progress Note-Fuel Cell Battery Technician Normal [facility] BETA-HYDRO BUTon 01-29-2022 BETA-HYDRO BUT 3.92 MMOL/L High 0.02-0.27 [facility] Comment on above: Order Comment: Zahc richter: M Result Comment: Bloo d ketone levels will vary depending on several factors(for example, food intake, alcohol intake and conditionssuch as ketoacidosis). Patients should be fasting 12 hoursprior to collection.PATIENT SAMPLES WITH HIGH LEVELS OF M-PROTEIN (I.E.GAMMOPATHY) MAY AFFECT THE ACCURACY OF THIS ASSAY. Performed By: #### L 500.93803 ####[facility] [id number] [place], [place] [address]Ey# [phone] BMPon 01-29-2022 Anion gap [Moles/Vol] 18 mmol/L High 5-16 [facility] Comment on above: Order Comment: Zach richter: M Performed By: #### L 500.56563, L500.72993, L500.02887, L500.62528, L500.41278 ####[facility] KPHAIDBUAZ4542 [place], [place] [address]Cd# [phone] Calcium [Mass/Vol] 9.9 mg/dL Normal 8.5-10.5 [facility] Comment on above: Order Comment: Campu s: M Result Comment: NOTE NEW NORMAL RANGE DUE TO REAGENT CHANGE Performed By: #### L 500.21220, L500.46470, L500.19242, L500.66850, L500.35382 ####[facility] IUXRKDDLWC0544 [place], [place] [address]Iy# [phone] Chloride [Moles/Vol] 103 mmol/L Normal 98-107 [facility] Comment on above: Order Comment: Campu s: M Performed By: #### L 500.56857, L500.83941, L500.03183, L500.72700, L500.00265 ####[facility] INLJTHCALP9043 [place], [place] [address]No# [phone] CO2 [Moles/Vol] 15.0 mmol/L Low 21-32 [facility] Comment on above: Order Comment: Campu s: M Performed By: #### L 500.65443, L500.46918, L500.95983, L500.28936, L500.69151 ####[facility] BIMDWONADV1534 [place], [place] [address]Lm# [phone] Creatinine [Mass/Vol] 0.71 mg/dL Normal 0.510-0.950 [facility] Comment on above: Order Comment: Campu s: M Result Comment: Cleopatra ents receiving either N-Acetylcysteine (NAC) orMetamizole prior to venipuncture, may have falsely depressedresults. Performed By: #### L 500.64800, L500.22771, L500.01672, L500.86413, L500.29420 ####[facility] [id number] [place], [place] [address]Do# [phone] Glucose [Mass/Vol] 412 mg/dL High 70-100 [facility] Comment on above: Order Comment: Campu s: M Result Comment: 70-1 00- Normal Fasting; 100-125 Impaired Fasting; greaterthan 126 on more than one result- Diabetes. ADA guidelines.Results may be falsely elevated after the administration ofSulfapyridine.Results may be falsely depressed after the administration ofSulfasalazine. Performed By: #### L 500.63869, L500.30300, L500.13510, L500.61140, L500.53760 ####[facility] UOBKOJYHFW5832 [place], [place] [address]Xi# [phone] Potassium [Moles/Vol] 4.2 mmol/L Normal 3.5-5.1 [facility] Comment on above: Order Comment: Campu s: M Performed By: #### L 500.27867, L500.89848, L500.31524, L500.37100, L500.65549 ####[facility] VFMGIQWAWB8692 [place], [place] [address]Kq# [phone] Sodium [Moles/Vol] 136 mmol/L Normal 136-145 [facility] Comment on above: Order Comment: Campu s: M Performed By: #### L 500.71465, L500.05724, L500.73143, L500.50227, L500.66250 ####[facility] WZMMFIOSKS0206 [place], [place] [address]Vx# [phone] Urea nitrogen [Mass/Vol] 23 mg/dL Normal 7-26 [facility] Comment on above: Order Comment: Campu s: M Performed By: #### L 500.00113, L500.05817, L500.58105, L500.05586, L500.64972 ####[facility] QPFDMKDZFZ4766 [place], [place] [address]Jn# [phone] Urea nitrogen/Creatinine [Mass ratio] 32 mg/mg High 15-24 [facility] Comment on above: Order Comment: Campu s: M Performed By: #### L 500.21664, L500.26435, L500.59418, L500.53367, L500.31689 ####[facility] QIGIEIBGLH6092 [place], [place] [address]Xs# [phone] CBC W/DIFFon 01-29-2022 BASO ABS 0.00 K/CU MM Normal 0-0.2 [facility] Comment on above: Order Comment: Campu s: M Performed By: #### L 200.94214 ####[facility] [address]AZNXAY[address] [place], [place] [address]Ph# [phone] Basophils/100 WBC (Bld) 0.1 % Normal 0-2 [facility] Comment on above: Order Comment: Campu s: M Performed By: #### L 200.44343 ####[address] [address]Rs# [phone] EOS ABS 0.00 K/CU MM Normal 0-0.5 [facility] Comment on above: Order Comment: Campu s: M Performed By: #### L 200.69043 ####[address] [address]An# [phone] Eosinophils/100 WBC (Bld) 0.1 % Normal 0-5 [facility] Comment on above: Order Comment: Campu s: M Performed By: #### L 200.53619 ####[facility] [address]ZRYWDHP[address] [place] [address]Wl# [phone] Erythrocyte distribution width (RBC) [Ratio] 13.6 % Normal 11-14.5 [facility] Comment on above: Order Comment: Campu s: M Performed By: #### L 200.00125 ####[facility] CNQMMDFJVC[address] [place] [address]Vc# [phone] Hematocrit (Bld) [Volume fraction] 38.7 % Normal 35.0-47.0 [facility] Comment on above: Order Comment: Campu s: M Performed By: #### L 200.88010 ####[facility] WXCKLDBTUK[address] [place], [place] [address]Ph# [phone] Hemoglobin (Bld) [Mass/Vol] 12.6 g/dL Normal 11.5-15.5 [facility] Comment on above: Order Comment: Campu s: M Performed By: #### L 200.70936 ####[facility] OBTUERVEIX[address] [place] [address]Bi# [phone] IMMATR GRAN ABS 0.10 K/CU MM Normal Less than 2 [facility] Comment on above: Order Comment: Campu s: M Performed By: #### L 200.60773 ####[place] [address]Ph# [phone] IMMATURE GRAN % 0.8 % Normal Less than 2 [facility] Comment on above: Order Comment: Campu s: M Performed By: #### L 200.87361 ####[place] [address]Ph# [phone] LYMPH ABS 0.80 K/CU MM Low 0.9-4.4 [facility] Comment on above: Order Comment: Campu s: M Performed By: #### L 200.10936 ####[place] [address]Ph# [phone] Lymphocytes/100 WBC (Bld) 4.4 % Low 20-40 [facility] Comment on above: Order Comment: Campu s: M Performed By: #### L 200.46680 ####[facility] ZYTTZCLHRB[address] [place], [place] [address]Ph# [phone] MCHC (RBC) [Mass/Vol] 32.6 g/dL Normal 32.0-36.0 [facility] Comment on above: Order Comment: Campu s: M Performed By: #### L 200.61503 ####[facility] JNCPQSAQYD367[address] [place], [place] [address]Ph# [phone] MCV (RBC) [Entitic vol] 86.4 fL Normal 80.0-99.0 [facility] Comment on above: Order Comment: Campu s: M Performed By: #### L 200.07962 ####[facility] PWJTSFPMKL1153 [place], [place] [address]Ba# [phone] MONO ABS 0.30 K/CU MM Normal 0.1-1.1 [facility] Comment on above: Order Comment: Campu s: M Performed By: #### L 200.86876 ####[facility] BUSSOJFNSR[address] [place], [place] [address]Ph# [phone] Monocytes/100 WBC (Bld) 1.7 % Low 2-10 [facility] Comment on above: Order Comment: Campu s: M Performed By: #### L 200.99260 ####[address] [address]Xv# [phone] NC/NC NORMOCYTIC Normal [facility] Comment on above: Order Comment: Campu s: M Performed By: #### L 200.05755 ####[place] [address]Ph# [phone] NEUTROPHIL ABS 17.00 K/CU MM High 2.0-8.3 [facility] Comment on above: Order Comment: Campu s: M Performed By: #### L 200.93787 ####[address] [address]Mz# [phone] Neutrophils/100 WBC (Bld) 92.9 % High 45-75 [facility] Comment on above: Order Comment: Campu s: M Performed By: #### L 200.88664 ####[facility] [address]UDGXVJV[address] [place] [address]Mn# [phone] Nucleated RBC/100 WBC (Bld) [Ratio] 0.0 % Normal Less than 1 [facility] Comment on above: Order Comment: Campu s: M Performed By: #### L 200.03150 ####[facility] YDWSERDUGZ[address] [place], [place] [address]Ph# [phone] Platelet mean volume (Bld) [Entitic vol] 13.5 fL High 9.4-12.4 [facility] Comment on above: Order Comment: Campu s: M Performed By: #### L 200.59034 ####[facility] WPMVIYHTKH1358 [place], [place] [address]Xj# [phone] PLT 174 K/CU MM Normal 150-450 [facility] Comment on above: Order Comment: Campu s: M Performed By: #### L 200.65675 ####[facility] BIKWJBUDXW5621 [place], [place] [address]Qh# [phone] PLT EST ADEQUATE [facility] Comment on above: Order Comment: Campu s: M Performed By: #### L 200.09637 ####[facility] WGJGVBTEEB2151 [place], [place] [address]Wk# [phone] RBC 4.48 M/CU MM Normal 3.90-5.30 [facility] Comment on above: Order Comment: Campu s: M Performed By: #### L 200.62845 ####[facility] BVFJYJPSCP5877 [place], [place] [address]Aa# [phone] WBC 18.3 K/CUMM High 4.5-11.0 [facility] Comment on above: Order Comment: Campu s: M Performed By: #### L 200.24316 ####[facility] OVNHPE[address]WC[address] [place] [address]Vt# [phone] CONS.INTENon 01-29-2022 CONS.INTEN [facility] Consultation-Intensivi st [facility] Stacie 01-29-2022 EMERGENCY PHYSICIAN REPORT This is a preliminary report only, as the practitioner review and authentication has not occurred. Normal [facility] 01-29-2022 IF AMER Greater than 60 [facility] Comment on above: Order Comment: Campu s: M Performed By: #### L 500.21428, L500.57490, L500.06751, L500.93020, L500.28696 ####[facility] ZNRCIZIIKS3664 [place], [place] [address]Eb# [phone] IF non-AFR AMER Greater than 60 Normal [facility] Comment on above: Order Comment: Zach s: M Performed By: #### L 500.10956, L500.32059, L500.64979, L500.56549, L500.63217 ####[facility] XQSICXETVC1425 [place], [place] [address]Zy# [phone] GLUCOSE METERon 01-29-2022 Glucose [Mass/Vol] 135 mg/dL High 70-115 [facility] Glucose [Mass/Vol] 146 mg/dL High 70-115 [facility] Glucose [Mass/Vol] 141 mg/dL High 70-115 [facility] Glucose [Mass/Vol] 117 mg/dL High 70-115 [facility] Glucose [Mass/Vol] 151 mg/dL High 70-115 [facility] Glucose [Mass/Vol] 221 mg/dL High 70-115 [facility] Glucose [Mass/Vol] 286 mg/dL High 70-115 [facility] Glucose [Mass/Vol] 382 mg/dL High 70-115 [facility] Glucose [Mass/Vol] 402 mg/dL High 70-115 [facility] HCGon 01-29-2022 HCG SER RESULT Negative Normal NEGATIVE [facility] Comment on above: Order Comment: Zach s: M Performed By: #### L 500.52335, L500.49059, L500.06727, L500.09846, L500.09087 ####[facility] URJAEDTUBN6594 [place], [place] [address]Zx# [phone] HP.IMS.ADMon 01-29-2022 Admission-H&P Normal [facility] HP.IMS.ADM Normal [facility] LIPASEon 01-29-2022 Lipase [Catalytic activity/Vol] 22 U/L Normal 12-60 [facility] Comment on above: Order Comment: Zach s: M Result Comment: NOTE NEW NORMAL RANGE DUE TO REAGENT CHANGE Performed By: #### L 500.28133, L500.94227, L500.80132, L500.16428, L500.57009 ####[facility] NBYCVALOPD8595 [place], [place] [address]Ar# [phone] LIVERon 01-29-2022 Albumin [Mass/Vol] 4.5 g/dL Normal 3.2-5.0 [facility] Comment on above: Order Comment: Campu s: M Performed By: #### L 500.60540, L500.64804, L500.22141, L500.14955, L500.71356 ####[facility] [id number] [place], [place] [address]Jq# [phone] Albumin/Globulin [Mass ratio] 1.7 {ratio} Normal 0.8-2.0 [facility] Comment on above: Order Comment: Campu s: M Performed By: #### L 500.70628, L500.53061, L500.38443, L500.27499, L500.78369 ####[facility] MTHPELEXDU1363 [place], [place] [address]Vt# [phone] ALK PHOS 104 U/L Normal 45-117 [facility] Comment on above: Order Comment: Campu s: M Performed By: #### L 500.25496, L500.94268, L500.30426, L500.36160, L500.28509 ####[facility] MTWMAKWSUN4798 [place], [place] [address]Nb# [phone] ALT [Catalytic activity/Vol] 28 U/L Normal 13-61 [facility] Comment on above: Order Comment: Campu s: M Result Comment: RESU LTS MAY BE FALSELY DEPRESSED AFTER THE ADMINISTRATION OFSULFASALAZINE AND/OR SULFAPYRIDINE. Performed By: #### L 500.38263, L500.94635, L500.63834, L500.08675, L500.25866 ####[facility] QKWVJZNFPB5004 [place], [place] [address]Fz# [phone] AST [Catalytic activity/Vol] 24 U/L Normal 8-34 [facility] Comment on above: Order Comment: Campu s: M Result Comment: RESU LTS MAY BE FALSELY DEPRESSED AFTER THE ADMINISTRATION OFSULFASALAZINE AND/OR SULFAPYRIDINE. Performed By: #### L 500.51206, L500.32035, L500.23671, L500.47960, L500.37335 ####[facility] WZJBQGJHUM7913 [place], [place] [address]Mo# [phone] BILI DIRECT 0.3 MG/DL Normal 0.00-0.36 [facility] Comment on above: Order Comment: Campu s: M Result Comment: NOTE NEW NORMAL RANGE DUE TO REAGENT CHANGE Performed By: #### L 500.05039, L500.84418, L500.44740, L500.04714, L500.58432 ####[facility] BNTDJPEETD3877 [place], [place] [address]Tp# [phone] BILI TOTAL 0.90 MG/DL Normal 0.2-1.0 [facility] Comment on above: Order Comment: Campu s: M Performed By: #### L 500.38162, L500.75839, L500.71861, L500.69180, L500.78861 ####[facility] YODDKOBIRR9107 [place], [place] [address]Oy# [phone] Globulin (S) [Mass/Vol] 2.7 g/dL Normal 2.2-4.2 [facility] Comment on above: Order Comment: Campu s: M Performed By: #### L 500.98766, L500.44683, L500.75824, L500.14869, L500.26868 ####[facility] MJYRCPGWAN4807 [place], [place] [address]Ns# [phone] Protein [Mass/Vol] 7.2 g/dL Normal 6.0-8.5 [facility] Comment on above: Order Comment: Campu s: M Performed By: #### L 500.88449, L500.22858, L500.93170, L500.07754, L500.01754 ####[facility] YYOJBZAMAS4898 [place], [place] [address]Ym# [phone] MRSA PCRon 01-29-2022 MRSA PCR Negative Normal NEGATIVE [facility] Comment on above: Order Comment: Zach s: M Result Comment: SULMA SCHMITZ NOTE: TESTING DONE BY PCR TECHNOLOGY.The SA Nasal complete MRSA assay on the [place] GeneXperthas not been validated for use on patients under 21 years ofage. All patients under 21 years of age, run on theCarol[place] HarvestXpert will be confirmed by a Blood [place] plate, followedby an SHINE, to confirm MRSA. Performed By: #### L 770.72245 ####[facility] XVLWLHWTJL2097 [place], [place] [address]Sy# [phone] SA PCR Positive High NEGATIVE [facility] Comment on above: Order Comment: Zach s: Millicent Result Comment: PLESelene SCHMITZ NOTE: TESTING DONE BY PCR TECHNOLOGY. Performed By: #### L 770.79675 ####[facility] [address]IWBFW[address] [place] [address]El# [phone] PORTABLE CHESTon 01-29-2022 PORTABLE CHEST Normal [facility] [id number] 01-29-2022 SARS-CoV-2 (COVID-19) RNA DANIEL+probe Ql (Unsp spec) Negative Invalid Interpretation Code Negative [facility] Comment on above: Order Comment: Zach richter: Millicent Result Comment: RESU LTS CALLED TO AND READ BACK BY MARY UAAT 1039 01/29/22 BY ELIDA ROJASNegative results do not preclude SARS-CoV-2 infection andshould not be used as the sole basis for treatment or otherpatient management decisions. Negative results must becombined with clinical observation, patient history, andepidemiological information.This test was performed by PCR. Performed By: #### L 770.68728 ####[facility] [id number] [place], [place] [address]Rx# [phone] UA COMPLETEon 01-29-2022 Color (U) Straw Normal [facility] Comment on above: Order Comment: Campu s: M Performed By: #### L 600.23190 ####[facility] FUTWXPGCGN[address] [place] [address]Qb# [phone] Glucose (U) [Mass/Vol] 500 mg/dL Normal NORMAL Me [facility] Comment on above: Order Comment: Campu s: M Performed By: #### L 600.50448 ####[facility] [address]MKZVWKE[address] [place] [address]Tz# [phone] UA APPEARANCE Clear Normal CLEAR [facility] Comment on above: Order Comment: Campu s: M Performed By: #### L 600.05853 ####[facility] FFCWCHRYEK[address] [place] [address]Cm# [phone] UA BILIRUBIN Negative Normal NEGATIVE [facility] Comment on above: Order Comment: Campu s: M Performed By: #### L 600.28262 ####[facility] EBBYEUCYGR[address] [place] [address]Ga# [phone] UA BLOOD Negative Normal NEGATIVE [facility] Comment on above: Order Comment: Campu s: M Performed By: #### L 600.45889 ####[facility] [address]FWFPKGFBD[address] [place] [address]Db# [phone] UA KETONE 80 Normal NEGATIVE [facility] Comment on above: Order Comment: Campu s: M Performed By: #### L 600.59631 ####[facility] [id number] [place] [address]Jf# [phone] UA LK ESTERASE Negative Normal NEGATIVE [facility] Comment on above: Order Comment: Campu s: M Performed By: #### L 600.45711 ####[facility] [address]QFMXKAND[address] [place] [address]Ya# [phone] UA NITRITE Negative Normal NEGATIVE [facility] Comment on above: Order Comment: Campu s: M Performed By: #### L 600.24729 ####[facility] SYLSPQFYWL7835 [place], [place] [address]Dl# [phone] UA PH 6.0 Normal 5-6 [facility] Comment on above: Order Comment: Campu s: M Performed By: #### L 600.79562 ####[facility] UHRIMWUJFO7357 [place], [place] [address]Ae# [phone] UA PROTEIN Negative Normal NEGATIVE [facility] Comment on above: Order Comment: Campu s: M Performed By: #### L 600.85376 ####[facility] KQMFNVRFRX[address] [place] [address]Mw# [phone] UA SPEC GRAV 1.028 Normal 1.005-1.030 [facility] Comment on above: Order Comment: Campu s: M Performed By: #### L 600.48864 ####[address] [address]Zb# [phone] UA UROBILINOGEN Negative Normal NORMAL [facility] Comment on above: Order Comment: Campu s: M Performed By: #### L 600.50920 ####[facility] [id number] [place] [address]Zs# [phone] VBG PHon 01-29-2022 VBG PH 7.36 MMHG Normal 7.31-7.41 [facility] Comment on above: Order Comment: Campu s: M Performed By: #### L 100.85763 ####[facility] OV[address]QVEHMW[address] [place] [address]Ec# [phone] BMPon 12-30-2021 Anion gap [Moles/Vol] 4 mmol/L Low 5-16 [facility] Comment on above: Order Comment: Campu s: M Performed By: #### L 500.32627, L500.15567 ####[facility] ZCWNBHIWEY[address] [place] [address]Qs# [phone] Calcium [Mass/Vol] 8.8 mg/dL Normal 8.5-10.5 [facility] Comment on above: Order Comment: Campu s: M Result Comment: NOTE NEW NORMAL RANGE DUE TO REAGENT CHANGE Performed By: #### L 500.90507, L500.32984 ####[facility] HHABOXZZFY6695 [place], [place] [address]Xl# [phone] Chloride [Moles/Vol] 109 mmol/L High 98-107 [facility] Comment on above: Order Comment: Campu s: M Performed By: #### L 500.51067, L500.53781 ####[facility] WRDVQOEZMT8426 [place], [place] [address]Ly# [phone] CO2 [Moles/Vol] 28.0 mmol/L Normal 21-32 [facility] Comment on above: Order Comment: Campu s: M Performed By: #### L 500.92117, L5.11707 ####[facility] M[address]ADVFTDF[address] [place] [address]Zx# [phone] Creatinine [Mass/Vol] 0.64 mg/dL Normal 0.510-0.950 [facility] Comment on above: Order Comment: Campu s: M Result Comment: Cleopatra ents receiving either N-Acetylcysteine (NAC) orMetamizole prior to venipuncture, may have falsely depressedresults. Performed By: #### L 500.48881, L5.30753 ####[facility] [address]JTBUMU[address] [place] [address]Hl# [phone] Glucose [Mass/Vol] 160 mg/dL High 70-100 [facility] Comment on above: Order Comment: Campu s: M Result Comment: Delt a check [id number] Normal Fasting; 100-125 Impaired Fasting; greaterthan 126 on more than one result- Diabetes. ADA guidelines.Results may be falsely elevated after the administration ofSulfapyridine.Results may be falsely depressed after the administration ofSulfasalazine. Performed By: #### L 500.58299, L500.63601 ####[facility] YRJGBTVRHE3576 [place], [place] [address]Jg# [phone] Potassium [Moles/Vol] 3.8 mmol/L Normal 3.5-5.1 [facility] Comment on above: Order Comment: Campu s: M Performed By: #### L 500.88626, L500.57608 ####[facility] UVPRJKOSVA8013 [place], [place] [address]Wl# [phone] Sodium [Moles/Vol] 141 mmol/L Normal 136-145 [facility] Comment on above: Order Comment: Campu s: M Performed By: #### L 500.19266, L5.13259 ####[facility] XQOEBJQYHA9468 [place], [place] [address]Mb# [phone] Urea nitrogen [Mass/Vol] 9 mg/dL Normal 7-26 [facility] Comment on above: Order Comment: Campu s: M Performed By: #### L 500.00592, L500.80507 ####[facility] RRENKFTQFL3629 [place], [place] [address]Pw# [phone] Urea nitrogen/Creatinine [Mass ratio] 14 mg/mg Low 15-24 [facility] Comment on above: Order Comment: Campu s: M Performed By: #### L 500.93254, L500.50098 ####[facility] [id number] [place] [address]Vl# [phone] DISCH.SUMon 12-30-2021 DISCH.SUM Normal [facility] GFR ESTon 12-30-2021 IF AMER Greater than 60 Normal [facility] Comment on above: Order Comment: Campu s: M Performed By: #### L 500.03810, L500.68931 ####[facility] LUVCIEHABB7142 [place], [place] [address]La# [phone] IF non-AFR AMER Greater than 60 Normal [facility] Comment on above: Order Comment: Campu s: M Performed By: #### L [id number], [id number] ####[facility] [id number] [place], [place] [address]Id# [phone] GLUCOSE METERon 12-30-2021 Glucose [Mass/Vol] 141 mg/dL High 70-115 [facility] [place] Glucose [Mass/Vol] 184 mg/dL High 70-115 [facility] Glucose [Mass/Vol] 269 mg/dL High 70-115 [facility] HGB A1C GLYCOHBon 12-30-2021 HbA1c (Bld) [Mass fraction] 6.2 % High 4.3-6.0 [facility] Comment on above: Order Comment: Campu s: M Performed By: #### L [id number] ####[facility] [id number] [place], [place] [address]Cl# [phone] BMPon 12-29-2021 Anion gap [Moles/Vol] 7 mmol/L Normal 5-16 [facility] Comment on above: Order Comment: Campu s: M Performed By: #### L [id number], [id number] ####[facility] [id number] [place], [place] [address]Gv# [phone] Calcium [Mass/Vol] 7.1 mg/dL Low 8.5-10.5 [facility] Comment on above: Order Comment: Campu s: M Result Comment: NOTE NEW NORMAL RANGE DUE TO REAGENT CHANGE Performed By: #### L 500.11885, L500.77967 ####[facility] XROYGGXCBH3806 [place], [place] [address]Bl# [phone] Chloride [Moles/Vol] 114 mmol/L High 98-107 [facility] Comment on above: Order Comment: Campu s: M Performed By: #### L 500.19823, L500.55834 ####[facility] AWRIJLNMMW7083 [place], [place] [address]Hi# [phone] CO2 [Moles/Vol] 22.0 mmol/L Normal 21-32 [facility] Comment on above: Order Comment: Campu s: M Performed By: #### L 500.28845, L500.25153 ####[facility] MDINVSTRRD7765 [place], [place] [address]Pc# [phone] Creatinine [Mass/Vol] 0.52 mg/dL Normal 0.510-0.950 [facility] [place] Comment on above: Order Comment: Benjiu s: M Result Comment: Cleopatra ents receiving either N-Acetylcysteine (NAC) orMetamizole prior to venipuncture, may have falsely depressedresults. Performed By: #### L 500.63906, L500.86542 ####[facility] DJPVIMPWPY8629 [place], [place] [address]Dz# [phone] Glucose [Mass/Vol] 94 mg/dL Normal 70-100 [facility] Comment on above: Order Comment: Campu s: M Result Comment: 70-1 00- Normal Fasting; 100-125 Impaired Fasting; greaterthan 126 on more than one result- Diabetes. ADA guidelines.Results may be falsely elevated after the administration ofSulfapyridine.Results may be falsely depressed after the administration ofSulfasalazine. Performed By: #### L 500.98266, L500.69902 ####[facility] NRRBQQOJIF8769 [place], [place] [address]Db# [phone] Potassium [Moles/Vol] 3.2 mmol/L Low 3.5-5.1 [facility] Comment on above: Order Comment: Benjiu s: M Result Comment: Slig ht Hemolysis, Result may be affected. Performed By: #### L 500.21179, L500.04915 ####[facility] [id number] [place] [address]Iv# [phone] Sodium [Moles/Vol] 143 mmol/L Normal 136-145 [facility] Comment on above: Order Comment: Benjiu s: M Result Comment: Delt a check reviewed Performed By: #### L 500.67125, L500.04828 ####[facility] XSIGQQFFFP7900 [place], [place] [address]Js# [phone] Urea nitrogen [Mass/Vol] 6 mg/dL Low 7-26 [facility] Comment on above: Order Comment: Benjiu s: M Performed By: #### L 500.24296, L500.83862 ####[facility] ROUATBHYUW7133 [place], [place] [address]Rb# [phone] Urea nitrogen/Creatinine [Mass ratio] 11 mg/mg Low 15-24 [facility] [place] Comment on above: Order Comment: Campu s: M Performed By: #### L 500.04692, L500.24561 ####[facility] HGYFQJRVTP0795 [place], [place] [address]Dk# [phone] CBC W/DIFFon 12-29-2021 BASO ABS 0.00 K/CU MM Normal 0-0.2 [facility] Comment on above: Order Comment: Campu s: M Performed By: #### L 200.49716 ####[facility] DELMRELOEO[address] [place], [place] [address]Ph# [phone] Basophils/100 WBC (Bld) 0.3 % Normal 0-2 [facility] Comment on above: Order Comment: Campu s: M Performed By: #### L 200.79646 ####[facility] [address]NCCVMTS[address] [place] [address]So# [phone] EOS ABS 0.00 K/CU MM Normal 0-0.5 [facility] Comment on above: Order Comment: Campu s: M Performed By: #### L 200.45686 ####[facility] LQXQATXZOI[address] [place] [address]Uv# [phone] Eosinophils/100 WBC (Bld) 0.2 % Normal 0-5 [facility] Comment on above: Order Comment: Campu s: M Performed By: #### L 200.80854 ####[facility] DPGCUYADMK[address] [place] [address]Py# [phone] Erythrocyte distribution width (RBC) [Ratio] 13.5 % Normal 11-14.5 [facility] Comment on above: Order Comment: Campu s: M Performed By: #### L 200.28917 ####[facility] CIIJEYDLQH[address] [place] [address]Oa# [phone] Hematocrit (Bld) [Volume fraction] 34.3 % Low 35.0-47.0 [facility] Comment on above: Order Comment: Campu s: M Performed By: #### L 200.37164 ####[facility] GXZINLMQDP[address] [place] [address]Fq# [phone] Hemoglobin (Bld) [Mass/Vol] 11.5 g/dL Normal 11.5-15.5 [facility] Comment on above: Order Comment: Campu s: M Performed By: #### L 200.08846 ####[place] [address]Ph# [phone] IMMATR GRAN ABS 0.20 K/CU MM Normal Less than 2 [facility] Comment on above: Order Comment: Campu s: M Performed By: #### L 200.23381 ####[place] [address]Ph# [phone] IMMATURE GRAN % 1.8 % Normal Less than 2 [facility] Comment on above: Order Comment: Campu s: M Performed By: #### L 200.04437 ####[facility] XSQSNMDSAM[address] [place], [place] [address]Ph# [phone] LYMPH ABS 3.60 K/CU MM Normal 0.9-4.4 [facility] Comment on above: Order Comment: Campu s: M Performed By: #### L 200.24628 ####[facility] LSFCNLZYYH[address] [place], [place] [address]Ph# [phone] Lymphocytes/100 WBC (Bld) 29.4 % Normal 20-40 [facility] Comment on above: Order Comment: Campu s: M Performed By: #### L 200.01179 ####[facility] [address]QNMYGPRDX[address] [place] [address]Dk# [phone] MCHC (RBC) [Mass/Vol] 33.5 g/dL Normal 32.0-36.0 [facility] Comment on above: Order Comment: Campu s: M Performed By: #### L 200.91442 ####[facility] OIFVQJXBVV8642 [place], [place] [address]Ip# [phone] MCV (RBC) [Entitic vol] 86.2 fL Normal 80.0-99.0 [facility] Comment on above: Order Comment: Campu s: M Performed By: #### L 200.48602 ####[facility] WSWBCTTTKW[address] [place] [address]Dj# [phone] MONO ABS 0.80 K/CU MM Normal 0.1-1.1 [facility] Comment on above: Order Comment: Campu s: M Performed By: #### L 200.90007 ####[place] [address]Ph# [phone] Monocytes/100 WBC (Bld) 6.7 % Normal 2-10 [facility] Comment on above: Order Comment: Campu s: M Performed By: #### L 200.20371 ####[facility] [address]NOZNUSGBX[address] [place], [place] [address]Ph# [phone] NEUTROPHIL ABS 7.60 K/CU MM Normal 2.0-8.3 [facility] Comment on above: Order Comment: Campu s: M Performed By: #### L 200.41835 ####[address] [address]Xl# [phone] Neutrophils/100 WBC (Bld) 61.6 % Normal 45-75 [facility] Comment on above: Order Comment: Campu s: M Performed By: #### L 200.84564 ####[facility] LHSOQMGSZZ[address] [place] [address]Jb# [phone] Nucleated RBC/100 WBC (Bld) [Ratio] 0.0 % Normal Less than 1 [facility] Comment on above: Order Comment: Campu s: M Performed By: #### L 200.52645 ####[facility] ELABTAXEOE[address] [place], [place] [address]Ph# [phone] Platelet mean volume (Bld) [Entitic vol] 11.7 fL Normal 9.4-12.4 [facility] Comment on above: Order Comment: Campu s: M Performed By: #### L 200.96541 ####[facility] GBUOPUGWNF6791 [place], [place] [address]Zx# [phone] PLT 167 K/CU MM Normal 150-450 [facility] Comment on above: Order Comment: Campu s: M Performed By: #### L 200.03050 ####[facility] [id number] [place] [address]Lk# [phone] RBC 3.98 M/CU MM Normal 3.90-5.30 [facility] Comment on above: Order Comment: Campu s: M Performed By: #### L 200.11159 ####[facility] GQCCQZPUUD[address] [place] [address]Tc# [phone] WBC 12.4 K/CUMM High 4.5-11.0 [facility] Comment on above: Order Comment: Campu s: M Performed By: #### L 200.11268 ####[facility] [address]XSESDFXLK[address] [place] [address]Qt# [phone] GFR ESTon 12-29-2021 IF AMER Greater than 60 [facility] Comment on above: Order Comment: Campu s: M Performed By: #### L 500.43607, L500.96427 ####[facility] [address]WJQEZXJ[address] [place] [address]Ft# [phone] IF non-AFR AMER Greater than 60 Normal [facility] [place] Comment on above: Order Comment: Campu s: M Performed By: #### L 500.23578, L500.24421 ####[facility] YKEPXYHHRI[address] [place] [address]Nq# [phone] GLUCOSE METERon 12-29-2021 Glucose [Mass/Vol] 266 mg/dL High 70-115 [facility] Glucose [Mass/Vol] 109 mg/dL Normal 70-115 [facility] Glucose [Mass/Vol] 67 mg/dL Low 70-115 [facility] Glucose [Mass/Vol] 49 mg/dL Critically low 70-115 [facility] [place] Glucose [Mass/Vol] 63 mg/dL Low 70-115 [facility] Glucose [Mass/Vol] 98 mg/dL Normal 70-115 [facility] PR[facility]MSon 12-29-2021 PROG IMS Normal [facility] Progress Note-Hospitalist Normal [facility] ADM.INTERVon 12-28-2021 ADM.INTERV Normal [facility] Admission Interval Note Normal [facility] BETA-HYDRO BUTon 12-28-2021 BETA-HYDRO BUT 4.79 MMOL/L High 0.02-0.27 [facility] Comment on above: Order Comment: Campu s: M Result Comment: Bloo d ketone levels will vary depending on several factors(for example, food intake, alcohol intake and conditionssuch as ketoacidosis). Patients should be fasting 12 hoursprior to collection.PATIENT SAMPLES WITH HIGH LEVELS OF M-PROTEIN (I.E.GAMMOPATHY) MAY AFFECT THE ACCURACY OF THIS ASSAY. Performed By: #### L 500.24240, L500.41145, L500.76856 ####[facility] MDXVJHJKOD9839 [place], [place] [address]Ro# [phone] BMPon 12-28-2021 Anion gap [Moles/Vol] 13 mmol/L Normal 5-16 [facility] Comment on above: Order Comment: Campu s: M Performed By: #### L 500.57977, L500.59817, L500.58300 ####[facility] JDHSPAMUNC6960 [place], [place] [address]Eg# [phone] Calcium [Mass/Vol] 8.9 mg/dL Normal 8.5-10.5 [facility] Comment on above: Order Comment: Campu s: M Result Comment: NOTE NEW NORMAL RANGE DUE TO REAGENT CHANGE Performed By: #### L 500.74434, L500.38521, L500.89753 ####[facility] WMQXNAMBXU1531 [place], [place] [address]Vf# [phone] Chloride [Moles/Vol] 105 mmol/L Normal 98-107 [facility] Comment on above: Order Comment: Zach s: M Performed By: #### L 500.24024, L500.81377, L500.04525 ####[facility] WGSVHXLTCF2920 [place], [place] [address]Gk# [phone] CO2 [Moles/Vol] 18.0 mmol/L Low 21-32 [facility] Comment on above: Order Comment: Zach s: M Performed By: #### L 500.47523, L500.00789, L500.57722 ####[facility] GPDQBUDPIV1864 [place], [place] [address]Vm# [phone] Creatinine [Mass/Vol] 0.61 mg/dL Normal 0.510-0.950 [facility] Comment on above: Order Comment: Zach s: M Result Comment: Cleopatra ents receiving either N-Acetylcysteine (NAC) orMetamizole prior to venipuncture, may have falsely depressedresults. Performed By: #### L 500.99057, L500.60042, L500.32378 ####[facility] CWTJHDZRME2338 [place], [place] [address]Cu# [phone] Glucose [Mass/Vol] 80 mg/dL Normal 70-100 [facility] Comment on above: Order Comment: Zach s: M Result Comment: 70-1 00- Normal Fasting; 100-125 Impaired Fasting; greaterthan 126 on more than one result- Diabetes. ADA guidelines.Results may be falsely elevated after the administration ofSulfapyridine.Results may be falsely depressed after the administration ofSulfasalazine. Performed By: #### L 500.85409, L500.27365, L500.01746 ####[facility] PDRXOAERZT7097 [place], [place] [address]Rn# [phone] Potassium [Moles/Vol] 2.9 mmol/L Critically low 3.5-5.1 [facility] Comment on above: Order Comment: Zach s: M Result Comment: Slig ht Hemolysis, Result may be affected.Critical Result(s)Called at: 19:38:48 on 12/28/2021 by lls. Called to vinh back by: DR MORLEY Performed By: #### L 500.01904, L500.07156, L500.59110 ####[facility] GKAQUSAXKZ2193 [place], [place] [address]Gb# [phone] Sodium [Moles/Vol] 136 mmol/L Normal 136-145 [facility] Comment on above: Order Comment: Campu s: M Performed By: #### L 500.59028, L500.41162, L500.13805 ####[facility] YPOIXEUOUD1569 [place], [place] [address]Go# [phone] Urea nitrogen [Mass/Vol] 11 mg/dL Normal 7-26 [facility] Comment on above: Order Comment: Campu s: M Performed By: #### L 500.33970, L500.70550, L500.51312 ####[facility] NABUEAKMBH5290 [place], [place] [address]Er# [phone] Urea nitrogen/Creatinine [Mass ratio] 18 mg/mg Normal 15-24 [facility] Comment on above: Order Comment: Campu s: M Performed By: #### L 500.37259, L500.27439, L500.90389 ####[facility] EGTPOGTNRP7435 [place], [place] [address]Lm# [phone] Stacie 12-28-2021 EMERGENCY PHYSICIAN REPORT This is a preliminary report only, as the practitioner review and authentication has not occurred. Normal [facility] ER Normal [facility] GFR ESTon 12-28-2021 IF AMER Greater than 60 Normal [facility] Comment on above: Order Comment: Campu s: M Performed By: #### L 500.77090, L500.32205, L500.94624 ####[facility] TFBFRONRXH2984 [place], [place] [address]Aj# [phone] IF non-AFR AMER [facility] than [facility] Comment on above: Order Comment: Campu s: M Performed By: #### L 500.18223, L500.84366, L500.75543 ####[facility] TFQLTZRPTJ9440 [place], [place] [address]Ca# [phone] VBG PANELon 12-28-2021 BASE EXCESS -4.6 MMOL/L Low 0-2 [facility] Comment on above: Order Comment: Campu s: M Performed By: #### L 100.51335 ####[facility] NPVDPPJCZQ1120 [place], [place] [address]Tw# [phone] Body temperature 98.6 [degF] Normal [facility] Comment on above: Order Comment: Campu s: M Performed By: #### L 100.90341 ####[facility] [address]ZXYW[address] [place] [address]Gq# [phone] EQUIPMENT UNKNOWN [facility] Comment on above: Order Comment: Campu s: M Performed By: #### L 100.41594 ####[facility] ZNIUZPIKWK8407 [place], [place] [address]Lj# [phone] HCO3 (Bld) [Moles/Vol] 17.6 mmol/L Low 22-26 [facility] Comment on above: Order Comment: Campu s: M Performed By: #### L 100.53734 ####[facility] SDHOZZGZKP4989 [place], [place] [address]Sj# [phone] Hemoglobin (Bld) [Mass/Vol] 13.9 g/dL Low 16.0-22.0 [facility] Comment on above: Order Comment: Campu s: M Performed By: #### L 100.26684 ####[facility] ZVBWEOSAFS[address] [place] [address]Ai# [phone] SAMPLE SITE UNKNOWN [facility] Comment on above: Order Comment: Campu s: M Performed By: #### L 100.37765 ####[facility] [address]TGYWFTIRB[address] [place] [address]Ou# [phone] SAMPLE TYPE VENOUS Normal [facility] Comment on above: Order Comment: Campu s: M Performed By: #### L 100.13575 ####[facility] QTISXBCPFI7864 [place], [place] [address]Dd# [phone] VBG CARBOXYHGB 1.5 % Normal 0-10 [facility] Comment on above: Order Comment: Campu s: M Performed By: #### L 100.27690 ####[facility] GWHSPCWNWL[address] [place] [address]Gw# [phone] VBG METHGB 0.3 % Low 0.4-1.5 [facility] Comment on above: Order Comment: Campu s: M Performed By: #### L 100.66917 ####[facility] [address]HROPALEP[address] [place] [address]Ym# [phone] VBG O2 CAPACITY 19.0 VOL% Normal [facility] Comment on above: Order Comment: Campu s: M Performed By: #### L 100.33986 ####[facility] GDBRBJZQLV[address] [place] [address]Bo# [phone] VBG O2 HG SATUR 88.4 % High 40-70 [facility] Comment on above: Order Comment: Campu s: M Performed By: #### L 100.17022 ####[facility] SNSEPOGNAR3912 [place], [place] [address]Oi# [phone] VBG PCO2 25.6 MMHG Critically low 40-50 [facility] Comment on above: Order Comment: Campu s: M Result Comment: VALU E IS OUTSIDE OF THE VERIFIED RANGES OF THIS ANALYZER.ADAM CHOE. PCO2 25.6 MMHG Performed By: #### L 100.01920 ####[facility] KBYGGVBHOR8026 [place], [place] [address]Dg# [phone] VBG PH 7.46 MMHG High 7.31-7.41 [facility] Comment on above: Order Comment: Campu s: M Performed By: #### L 100.65022 ####[facility] VZYVJHHJVF9079 [place], [place] [address]Yt# [phone] VBG PO2 54.3 MMHG High 35-45 [facility] Comment on above: Order Comment: Campu s: M Performed By: #### L 100.70809 ####[facility] TPVUAOUIOT8555 [place], [place] [address]Lv# [phone] BETA-HYDRO BUTon 12-27-2021 BETA-HYDRO BUT 3.29 MMOL/L High 0.02-0.27 [facility] Comment on above: Order Comment: Campu s: M Result Comment: Bloo d ketone levels will vary depending on several factors(for example, food intake, alcohol intake and conditionssuch as ketoacidosis). Patients should be fasting 12 hoursprior to collection.PATIENT SAMPLES WITH HIGH LEVELS OF M-PROTEIN (I.E.GAMMOPATHY) MAY AFFECT THE ACCURACY OF THIS ASSAY. Performed By: #### L 500.77454 ####[facility] LNMRTYIDZB4990 [place], [place] [address]Qp# [phone] BMPon 12-27-2021 Anion gap [Moles/Vol] 15 mmol/L Normal 5-16 [facility] Comment on above: Order Comment: Campu s: M Performed By: #### L 500.02521, L500.29983, L500.25207 ####[facility] BPOPZZTPYD1934 [place], [place] [address]Dh# [phone] Calcium [Mass/Vol] 9.2 mg/dL Normal 8.5-10.5 [facility] Comment on above: Order Comment: Campu s: M Result Comment: NOTE NEW NORMAL RANGE DUE TO REAGENT CHANGE Performed By: #### L 500.02073, L500.19200, L500.41544 ####[facility] WBEWQCMKVL4417 [place], [place] [address]Pb# [phone] Chloride [Moles/Vol] 107 mmol/L Normal 98-107 [facility] Comment on above: Order Comment: Campu s: M Performed By: #### L 500.40820, L500.70441, L500.58207 ####[facility] FODXCHXGKW2670 [place], [place] [address]Pa# [phone] CO2 [Moles/Vol] 18.0 mmol/L Low 21-32 [facility] Comment on above: Order Comment: Zach s: M Performed By: #### L 500.00731, L500.69146, L500.64811 ####[facility] EQJHXJHNSV7768 [place], [place] [address]Td# [phone] Creatinine [Mass/Vol] 0.67 mg/dL Normal 0.510-0.950 [facility] Comment on above: Order Comment: Benjiu s: M Result Comment: Cleopatra ents receiving either N-Acetylcysteine (NAC) orMetamizole prior to venipuncture, may have falsely depressedresults. Performed By: #### L 500.92987, L500.21827, L500.19463 ####[facility] XLBHJHGRMB9454 [place], [place] [address]Xh# [phone] Glucose [Mass/Vol] 118 mg/dL High 70-100 [facility] Comment on above: Order Comment: Benjiu s: M Result Comment: 70-1 00- Normal Fasting; 100-125 Impaired Fasting; greaterthan 126 on more than one result- Diabetes. ADA guidelines.Results may be falsely elevated after the administration ofSulfapyridine.Results may be falsely depressed after the administration ofSulfasalazine. Performed By: #### L 500.16094, L500.02692, L500.76221 ####[facility] MCDOVNDNTL2923 [place], [place] [address]Pr# [phone] Potassium [Moles/Vol] 3.3 mmol/L Low 3.5-5.1 [facility] Comment on above: Order Comment: Zach s: M Performed By: #### L 500.47306, L500.27208, L500.44393 ####[facility] DYQOGKPQOD3389 [place], [place] [address]Dj# [phone] Sodium [Moles/Vol] 140 mmol/L Normal 136-145 [facility] Comment on above: Order Comment: Campu s: M Performed By: #### L 500.83821, L500.65488, L500.28085 ####[facility] INCMBVNEXU2437 [place], [place] [address]Nk# [phone] Urea nitrogen [Mass/Vol] 14 mg/dL Normal 7-26 [facility] Comment on above: Order Comment: Campu s: M Performed By: #### L 500.30612, L500.46704, L500.48455 ####[facility] RLHKVWYKSN4631 [place], [place] [address]Kc# [phone] Urea nitrogen/Creatinine [Mass ratio] 21 mg/mg Normal 15-24 [facility] Comment on above: Order Comment: Campu s: M Performed By: #### L 500.71667, L500.20224, L500.52133 ####[facility] RAJGXCDEJW7021 [place], [place] [address]Re# [phone] CBC W/DIFFon 12-27-2021 BASO ABS 0.00 K/CU MM Normal 0-0.2 [facility] Comment on above: Order Comment: Campu s: M Performed By: #### L 200.33729 ####[facility] [address]PBNKBOL[address] [place] [address]Ol# [phone] Basophils/100 WBC (Bld) 0.3 % Normal 0-2 [facility] Comment on above: Order Comment: Campu s: M Performed By: #### L 200.12431 ####[facility] J[address]QJFWNJFS[address] [place] [address]Cg# [phone] EOS ABS 0.00 K/CU MM Normal 0-0.5 [facility] Comment on above: Order Comment: Campu s: M Performed By: #### L 200.72253 ####[facility] JWDPIDHRUC[address] [place] [address]Nl# [phone] Eosinophils/100 WBC (Bld) 0.0 % Normal 0-5 [facility] Comment on above: Order Comment: Campu s: M Performed By: #### L 200.32960 ####[facility] SRWTUFYTJB7886 [place], [place] [address]Tr# [phone] Erythrocyte distribution width (RBC) [Ratio] 13.8 % Normal 11-14.5 [facility] Comment on above: Order Comment: Campu s: M Performed By: #### L 200.12600 ####[facility] [address]CAKZTJRN[address] [place], [place] [address]Ph# [phone] Hematocrit (Bld) [Volume fraction] 36.4 % Normal 35.0-47.0 [facility] Comment on above: Order Comment: Campu s: M Performed By: #### L 200.35278 ####[place] [address]Ph# [phone] Hemoglobin (Bld) [Mass/Vol] 12.1 g/dL Normal 11.5-15.5 [facility] Comment on above: Order Comment: Campu s: M Performed By: #### L 200.28998 ####[facility] [address]YPTEJWYOA[address] [place], [place] [address]Ph# [phone] IMMATR GRAN ABS 0.30 K/CU MM Normal Less than 2 [facility] Comment on above: Order Comment: Campu s: M Performed By: #### L 200.70506 ####[facility] DKISHKBPWT[address] [place], [place] [address]Ph# [phone] IMMATURE GRAN % 1.8 % Normal Less than 2 [facility] Comment on above: Order Comment: Campu s: M Performed By: #### L 200.42034 ####[facility] NGIZRXCSJR[address] [place], [place] [address]Ph# [phone] LYMPH ABS 1.30 K/CU MM Normal 0.9-4.4 [facility] Comment on above: Order Comment: Campu s: M Performed By: #### L [id number] ####[facility] [id number] [place], [place] [address]Ll# [phone] Lymphocytes/100 WBC (Bld) 9.4 % Low 20-40 [facility] Comment on above: Order Comment: Campu s: M Performed By: #### L [id number] ####[address] [address]Mr# [phone] MCHC (RBC) [Mass/Vol] 33.2 g/dL Normal 32.0-36.0 [facility] [place] Comment on above: Order Comment: Campu s: M Performed By: #### L [id number] ####[address] [address]Ql# [phone] MCV (RBC) [Entitic vol] 85.4 fL Normal 80.0-99.0 [facility] Comment on above: Order Comment: Campu s: M Performed By: #### L [id number] ####[address] [address]Hk# [phone] MONO ABS 0.60 K/CU MM Normal 0.1-1.1 [facility] Comment on above: Order Comment: Campu s: M Performed By: #### L [id number] ####[address] [address]Hi# [phone] Monocytes/100 WBC (Bld) 4.1 % Normal 2-10 [facility] Comment on above: Order Comment: Campu s: M Performed By: #### L 200.57960 ####[facility] [id number] [place] [address]Md# [phone] NEUTROPHIL ABS 11.70 K/CU MM High 2.0-8.3 [facility] Comment on above: Order Comment: Campu s: M Performed By: #### L 200.83931 ####[facility] [id number] [place], [place] [address]Ph# [phone] Neutrophils/100 WBC (Bld) 84.4 % High 45-75 [facility] Comment on above: Order Comment: Campu s: M Performed By: #### L 200.20652 ####[facility] [id number] [place], [place] [address]Xa# [phone] Nucleated RBC/100 WBC (Bld) [Ratio] 0.0 % Normal Less than 1 [facility] Comment on above: Order Comment: Campu s: M Performed By: #### L 200.64486 ####[facility] MNBJCCMPRW9462 [place], [place] [address]Xm# [phone] Platelet mean volume (Bld) [Entitic vol] 12.1 fL Normal 9.4-12.4 [facility] Comment on above: Order Comment: Campu s: M Performed By: #### L 200.35839 ####[facility] ZCJOGDDKME5032 [place], [place] [address]On# [phone] PLT 184 K/CU MM Normal 150-450 [facility] Comment on above: Order Comment: Campu s: M Performed By: #### L 200.04199 ####[facility] ZVSIZNMKYY4798 [place], [place] [address]Lm# [phone] RBC 4.26 M/CU MM Normal 3.90-5.30 [facility] Comment on above: Order Comment: Campu s: M Performed By: #### L 200.98601 ####[facility] [id number] [place], [place] [address]Bs# [phone] WBC 13.9 K/CUMM High 4.5-11.0 [facility] Comment on above: Order Comment: Campu s: M Performed By: #### L 200.83668 ####[facility] KNYPMVGFTI6107 [place], [place] [address]Ja# [phone] Stacie 12-27-2021 EMERGENCY PHYSICIAN REPORT This is a preliminary report only, as the practitioner review and authentication has not occurred. Normal [facility] ER Normal [facility] G[facility] ESTon 12-27-2021 IF AMER Greater than 60 Normal [facility] Comment on above: Order Comment: Campu s: M Performed By: #### L 500.09808, L500.19937, L500.92819 ####[facility] [id number] [place], [place] [address]Fq# [phone] IF non-AFR AMER Greater than 60 Normal [facility] Comment on above: Order Comment: Campu s: M Performed By: #### L 500.35135, L500.01734, L500.59109 ####[facility] SYBWCEVPDZ1761 [place], [place] [address]Xj# [phone] HCGon 12-27-2021 HCG SER RESULT Negative Normal NEGATIVE [facility] Comment on above: Order Comment: Campu s: M Performed By: #### L 500.23166, L500.45190, L500.69588 ####[facility] [address]ZWZJVC[address] [place] [address]Dg# [phone] LACTATE BLOODon 12-27-2021 LACTATE BLOOD 2.43 MMOL/L High 0.40-2.00 [facility] Comment on above: Order Comment: Campu s: M Performed By: #### L 550.64425 ####[facility] [id number] [place] [address]Bi# [phone] LIPASEon 12-27-2021 Lipase [Catalytic activity/Vol] 25 U/L Normal 12-60 [facility] Comment on above: Order Comment: Campu s: M Result Comment: NOTE NEW NORMAL RANGE DUE TO REAGENT CHANGE Performed By: #### L 500.29817, L500.76612 ####[facility] [id number] [place] [address]Up# [phone] LIVERon 12-27-2021 Albumin [Mass/Vol] 4.2 g/dL Normal 3.2-5.0 [facility] Comment on above: Order Comment: Campu s: M Performed By: #### L 500.54483, L500.03297 ####[facility] DECCCSEVBD7086 [place], [place] [address]Fs# [phone] Albumin/Globulin [Mass ratio] 1.7 {ratio} Normal 0.8-2.0 [facility] Comment on above: Order Comment: Campu s: M Performed By: #### L 500.65489, L500.04726 ####[facility] ZILUFNFVSM4936 [place], [place] [address]Do# [phone] ALK PHOS 87 U/L Normal 45-117 [facility] Comment on above: Order Comment: Campu s: M Performed By: #### L 500.28250, L500.76600 ####[facility] IMBKKMICCM3805 [place], [place] [address]Ni# [phone] ALT [Catalytic activity/Vol] 13 U/L Normal 13-61 [facility] Comment on above: Order Comment: Campu s: M Result Comment: RESU LTS MAY BE FALSELY DEPRESSED AFTER THE ADMINISTRATION OFSULFASALAZINE AND/OR SULFAPYRIDINE. Performed By: #### L 500.16114, L500.96906 ####[facility] FUFEREWREO0486 [place], [place] [address]Ba# [phone] AST [Catalytic activity/Vol] 23 U/L Normal 8-34 [facility] Comment on above: Order Comment: Campu s: M Result Comment: RESU LTS MAY BE FALSELY DEPRESSED AFTER THE ADMINISTRATION OFSULFASALAZINE AND/OR SULFAPYRIDINE. Performed By: #### L 500.88585, L500.71522 ####[facility] VAHMWYXFXY4559 [place], [place] [address]Te# [phone] BILI DIRECT 0.3 MG/DL Normal 0.00-0.36 [facility] Comment on above: Order Comment: Campu s: M Result Comment: NOTE NEW NORMAL RANGE DUE TO REAGENT CHANGE Performed By: #### L 500.85039, L500.51746 ####[facility] YPQNCKQLEW5448 [place], [place] [address]Bg# [phone] BILI TOTAL 0.90 MG/DL Normal 0.2-1.0 [facility] [place] Comment on above: Order Comment: Campu s: M Performed By: #### L 500.92949, L500.37534 ####[facility] XDLMQLBVHY1952 [place], [place] [address]Bz# [phone] Globulin (S) [Mass/Vol] 2.5 g/dL Normal 2.2-4.2 [facility] Comment on above: Order Comment: Campu s: M Performed By: #### L 500.84774, L500.95680 ####[place] [address] [place], [place] [address]Hu# [phone] Protein [Mass/Vol] 6.7 g/dL Normal 6.0-8.5 [facility] Comment on above: Order Comment: Campu s: M Performed By: #### L 500.37972, L500.30262 ####[facility] RBBHYTNIPS9413 [place], [place] [address]Hb# [phone] [id number] 12-27-2021 SARS-CoV-2 (COVID-19) RNA DANIEL+probe Ql (Unsp spec) Negative Invalid Interpretation Code Negative [facility] Comment on above: Order Comment: Campu s: M Result Comment: RESU LTS CALLED TO AND READ BACK BY MEGHAN UAAT 1803 12/27/21 BY ELIDA ROJASNegative results do not preclude SARS-CoV-2 infection andshould not be used as the sole basis for treatment or otherpatient management decisions. Negative results must becombined with clinical observation, patient history, andepidemiological information.This test was performed by PCR. Performed By: #### L 770.71170 ####[facility] TVQBXDEENE4253 [place], [place] [address]Sg# [phone] UA COMPLETEon 12-27-2021 Color (U) Yellow Normal [facility] Comment on above: Order Comment: Campu s: M Performed By: #### L 600.52032 ####[facility] CINKNIYZUG2221 [place], [place] [address]Ef# [phone] Glucose (U) [Mass/Vol] Negative Normal NORMAL [facility] [place] Comment on above: Order Comment: Campu s: M Performed By: #### L 600.33952 ####[facility] [id number] [place] [address]Mk# [phone] UA APPEARANCE Clear Normal CLEAR [facility] Comment on above: Order Comment: Campu s: M Performed By: #### L 600.44357 ####[facility] [address]QMBFSD[address] [place] [address]Cl# [phone] UA BILIRUBIN Negative Normal NEGATIVE [facility] Comment on above: Order Comment: Campu s: M Performed By: #### L 600.06657 ####[facility] [id number] [place] [address]Od# [phone] UA BLOOD Negative Normal NEGATIVE [facility] Comment on above: Order Comment: Campu s: M Performed By: #### L 600.28121 ####[facility] [id number] [place] [address]Ni# [phone] UA KETONE 80 Normal NEGATIVE [facility] Comment on above: Order Comment: Campu s: M Performed By: #### L 600.26349 ####[facility] [id number] [place] [address]Eg# [phone] UA LK ESTERASE Negative Normal NEGATIVE [facility] Comment on above: Order Comment: Campu s: M Performed By: #### L 600.67685 ####[facility] [id number] [place] [address]Bj# [phone] UA NITRITE Negative Normal NEGATIVE [facility] Comment on above: Order Comment: Campu s: M Performed By: #### L 600.48201 ####[facility] [id number] [place] [address]Jo# [phone] UA PH 6.0 Normal 5-6 [facility] Comment on above: Order Comment: Campu s: M Performed By: #### L 600.32534 ####[facility] OSTSTUDBPE2416 [place], [place] [address]Lo# [phone] UA PROTEIN Negative Normal NEGATIVE [facility] Comment on above: Order Comment: Campu s: M Performed By: #### L 600.35467 ####[facility] LPIPZMXMBO1098 [place], [place] [address]Lc# [phone] UA SPEC GRAV 1.018 Normal 1.005-1.030 [facility] Comment on above: Order Comment: Campu s: M Performed By: #### L 600.87859 ####[facility] RLGAOYVWVY7482 [place], [place] [address]Sa# [phone] UA UROBILINOGEN 2.0 Normal NORMAL [facility] Comment on above: Order Comment: Campu s: M Performed By: #### L 600.75409 ####[facility] HRHPFDVXAH4253 [place], [place] [address]Po# [phone] VBG PHon 12-27-2021 VBG PH 7.57 MMHG High 7.31-7.41 [facility] Comment on above: Order Comment: Campu s: M Performed By: #### L 100.37110 ####[facility] [id number] [place], [place] [address]Iq# [phone] Stacie 12-26-2021 EMERGENCY PHYSICIAN REPORT This is a preliminary report only, as the practitioner review and authentication has not occurred. Normal [facility] ER Normal [facility] GLUCOSE METERon 12-26-2021 Glucose [Mass/Vol] 246 mg/dL High 70-115 [facility] Glucose [Mass/Vol] 311 mg/dL High 70-115 [facility] PROG.NOTEon 12-26-2021 PROG.NOTE Normal [facility] Progress Note-Physician Normal [facility] ABDOMEN OR KUBon 12-25-2021 ABDOMEN OR KUB Normal [facility] BETA-HYDRO BUTon 12-25-2021 BETA-HYDRO BUT 2.49 MMOL/L High 0.02-0.27 [facility] Comment on above: Order Comment: Campu s: M Result Comment: Bloo d ketone levels will vary depending on several factors(for example, food intake, alcohol intake and conditionssuch as ketoacidosis). Patients should be fasting 12 hoursprior to collection.PATIENT SAMPLES WITH HIGH LEVELS OF M-PROTEIN (I.E.GAMMOPATHY) MAY AFFECT THE ACCURACY OF THIS ASSAY. Performed By: #### L 500.47003 ####[facility] TCNGSOYCOY7521 [place], [place] [address]Kb# [phone] BMPon 12-25-2021 Anion gap [Moles/Vol] 13 mmol/L Normal 5-16 [facility] Comment on above: Order Comment: Campu s: M Performed By: #### L 500.36820, L500.09311, L500.09761, L500.75719, L500.75002 ####[facility] YKXXCAEQSY7481 [place], [place] [address]Le# [phone] Calcium [Mass/Vol] 10.0 mg/dL Normal 8.5-10.5 [facility] Comment on above: Order Comment: Campu s: M Result Comment: NOTE NEW NORMAL RANGE DUE TO REAGENT CHANGE Performed By: #### L 500.48228, L500.12766, L500.95608, L500.01559, L500.31690 ####[facility] UESXQMDFCA7644 [place], [place] [address]Pf# [phone] Chloride [Moles/Vol] 107 mmol/L Normal 98-107 [facility] Comment on above: Order Comment: Campu s: M Performed By: #### L 500.65961, L500.15272, L500.31948, L500.95623, L500.54675 ####[facility] EJBLILNLIF8548 [place], [place] [address]Om# [phone] CO2 [Moles/Vol] 17.0 mmol/L Low 21-32 [facility] Comment on above: Order Comment: Campu s: M Performed By: #### L 500.10893, L500.13237, L500.81733, L500.98293, L500.30575 ####[facility] KDFYEJNRRY3333 [place], [place] [address]Gw# [phone] Creatinine [Mass/Vol] 0.66 mg/dL Normal 0.510-0.950 [facility] Comment on above: Order Comment: Benjiu s: M Result Comment: Cleopatra ents receiving either N-Acetylcysteine (NAC) orMetamizole prior to venipuncture, may have falsely depressedresults. Performed By: #### L 500.39567, L500.47926, L500.57166, L500.99124, L500.64399 ####[facility] NKZPXHXSVQ7137 [place], [place] [address]Ll# [phone] Glucose [Mass/Vol] 359 mg/dL High 70-100 [facility] Comment on above: Order Comment: Benjiu s: M Result Comment: 70-1 00- Normal Fasting; 100-125 Impaired Fasting; greaterthan 126 on more than one result- Diabetes. ADA guidelines.Results may be falsely elevated after the administration ofSulfapyridine.Results may be falsely depressed after the administration ofSulfasalazine. Performed By: #### L 500.28899, L500.40976, L500.11054, L500.56321, L500.28186 ####[facility] HRYMSQCHKH0145 [place], [place] [address]Ly# [phone] Potassium [Moles/Vol] 4.1 mmol/L Normal 3.5-5.1 [facility] Comment on above: Order Comment: Zach s: M Performed By: #### L 500.60758, L500.30317, L500.25822, L500.70245, L500.18004 ####[facility] GXRFCKJZUA0868 [place], [place] [address]Ld# [phone] Sodium [Moles/Vol] 137 mmol/L Normal 136-145 [facility] Comment on above: Order Comment: Zach s: M Performed By: #### L 500.29399, L500.27383, L500.03135, L500.55748, L500.10271 ####[facility] HDMSLCWBKW2214 [place], [place] [address]Wd# [phone] Urea nitrogen [Mass/Vol] 17 mg/dL Normal 7- [facility] [place] Comment on above: Order Comment: Campu s: M Performed By: #### L 500.42720, L500.09680, L500.23715, L500.34950, L500.74784 ####[facility] KKJCZYGCDF4256 [place], [place] [address]Ro# [phone] Urea nitrogen/Creatinine [Mass ratio] 26 mg/mg High 15-24 [facility] Comment on above: Order Comment: Campu s: M Performed By: #### L 500.20866, L500.36295, L500.54878, L500.82717, L500.90775 ####[facility] UGDSDEPRUX[address] [place] [address]Ds# [phone] CBC W/DIFFon 12-25-2021 BASO ABS 0.00 K/CU MM Normal 0-0.2 [facility] [place] Comment on above: Order Comment: Campu s: M Performed By: #### L 200.20879 ####[facility] STCHLRRPJZ[address] [place] [address]Pn# [phone] Basophils/100 WBC (Bld) 0.2 % Normal 0-2 [facility] [place] Comment on above: Order Comment: Campu s: M Performed By: #### L 200.67925 ####[facility] [id number] [place] [address]Sj# [phone] EOS ABS 0.00 K/CU MM Normal 0-0.5 [facility] [place] Comment on above: Order Comment: Campu s: M Performed By: #### L 200.73680 ####[facility] USCSMHUKDK1609[address] [place] [address]Zk# [phone] Eosinophils/100 WBC (Bld) 0.0 % Normal 0-5 [facility] [place] Comment on above: Order Comment: Campu s: M Performed By: #### L 200.69306 ####[facility] UKYTHKEZVL7979 [place], [place] [address]Ni# [phone] Erythrocyte distribution width (RBC) [Ratio] 13.4 % Normal 11-14.5 [facility] Comment on above: Order Comment: Campu s: M Performed By: #### L 200.49442 ####[facility] [id number] [place], [place] [address]Ph# [phone] Hematocrit (Bld) [Volume fraction] 38.3 % Normal 35.0-47.0 [facility] Comment on above: Order Comment: Campu s: M Performed By: #### L 200.42501 ####[address] [address]Xj# [phone] Hemoglobin (Bld) [Mass/Vol] 13.0 g/dL Normal 11.5-15.5 [facility] [place] Comment on above: Order Comment: Campu s: M Performed By: #### L 200.99088 ####[facility] ANJJNTCJJJ[address] [place], [place] [address]Ph# [phone] IMMATR GRAN ABS 0.20 K/CU MM Normal Less than 2 [facility] [place] Comment on above: Order Comment: Campu s: M Performed By: #### L 200.48132 ####[facility] AFATBQHAHB[address] [place], [place] [address]Ph# [phone] IMMATURE GRAN % 1.0 % Normal Less than 2 [facility] Comment on above: Order Comment: Campu s: M Performed By: #### L 200.88113 ####[facility] FOPMLFDXGG[address] [place] [address]Np# [phone] LYMPH ABS 0.90 K/CU MM Normal 0.9-4.4 [facility] Comment on above: Order Comment: Campu s: M Performed By: #### L 200.29001 ####[facility] WAIFKHZENP3564 [place], [place] [address]Jj# [phone] Lymphocytes/100 WBC (Bld) 4.8 % Low 20-40 [facility] Comment on above: Order Comment: Campu s: M Performed By: #### L 200.56327 ####[facility] YLZSQZZNJJ[address] [place] [address]Hy# [phone] MCHC (RBC) [Mass/Vol] 33.9 g/dL Normal 32.0-36.0 [facility] [place] Comment on above: Order Comment: Campu s: M Performed By: #### L 200.43517 ####[place] [address]608Ph# [phone] MCV (RBC) [Entitic vol] 84.2 fL Normal 80.0-99.0 [facility] Comment on above: Order Comment: Campu s: M Performed By: #### L 200.09654 ####[facility] WKLXONIRZC[address] [place] [address]Ik# [phone] MONO ABS 0.50 K/CU MM Normal 0.1-1.1 [facility] Comment on above: Order Comment: Campu s: M Performed By: #### L 200.05928 ####[address] [address]Xm# [phone] Monocytes/100 WBC (Bld) 2.4 % Normal 2-10 [facility] Comment on above: Order Comment: Campu s: M Performed By: #### L 200.45621 ####[facility] [address]VMQZCJRBL[address] [place] [address]Pk# [phone] NEUTROPHIL ABS 17.60 K/CU MM High 2.0-8.3 [facility] Comment on above: Order Comment: Campu s: M Performed By: #### L 200.92577 ####[facility] WBFYZIHOLE[address] [place], [place] [address]Ph# [phone] Neutrophils/100 WBC (Bld) 91.6 % High 45-75 [facility] Comment on above: Order Comment: Campu s: M Performed By: #### L 200.36476 ####[facility] NWRDMBDJEM7484 [place], [place] [address]El# [phone] Nucleated RBC/100 WBC (Bld) [Ratio] 0.0 % Normal Less than 1 [facility] Comment on above: Order Comment: Campu s: M Performed By: #### L 200.40641 ####[facility] [address]WVPYTEMJ[address] [place] [address]Up# [phone] Platelet mean volume (Bld) [Entitic vol] 13.2 fL High 9.4-12.4 [facility] Comment on above: Order Comment: Campu s: M Performed By: #### L 200.78205 ####[facility] YIENRXXDUP7198 [place], [place] [address]Co# [phone] PLT 187 K/CU MM Normal 150-450 [facility] Comment on above: Order Comment: Campu s: M Result Comment: Accu racy questionable due to platelet clumping, actualplatelet count may be higher than the reported value. Performed By: #### L 200.28334 ####[facility] [id number] [place] [address]Px# [phone] PLT EST UNABLE TO QUANTITATE Normal [facility] Comment on above: Order Comment: Campu s: M Performed By: #### L 200.20484 ####[facility] DKAUYUKHBX1200 [place], [place] [address]Gf# [phone] POIK 1+ Normal [facility] Comment on above: Order Comment: Campu s: M Performed By: #### L 200.50882 ####[facility] FIIRMJDOGI[address] [place] [address]Ce# [phone] POLY 1+ Normal [facility] Comment on above: Order Comment: Campu s: M Performed By: #### L 200.97571 ####[facility] [id number] [place] [address]Bo# [phone] RBC 4.55 M/CU MM Normal 3.90-5.30 [facility] Comment on above: Order Comment: Benjiu s: M Performed By: #### L 200.19379 ####[facility] [id number] [place], [place] [address]Qi# [phone] WBC 19.2 K/CUMM High 4.5-11.0 [facility] Comment on above: Order Comment: Benjiu s: M Performed By: #### L 200.96425 ####[facility] KRJAMBNSVN8355 [place], [place] [address]Wk# [phone] CNPDanitza 12-25-2021 CNPN Telephone (FVPRAD) KATHLEEN VILLA ([id number]) 1995 F T Date Time Provider Department 12/25/21 VELIA KAUR During your visit today, we recorded the following information about you: Velia Kaur MD 12/25/2021 12:44 PM Signed 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 She is out of infusion sets for her insulin pump. Reviewed pump settings and endocrinology notes. Advised her to take lantus 42 units every 24 hours. Dose humalog based on ICR 10 and sensitivity 30. She has lantus at home as well as syringes. She is aware to contact office when she has infusion sets for instructions on timing of restarting pump. She will call us back is she has any difficulties. Allergies As of Date: 12/25/2021 Noted Allergy Reaction PERCOCET (OXYCODONE-ACETAMINOPH EN)01/10/2014 2 - Rash 5 - Intolerance 9 - Itching ADHESIVE TAPE (ROSINS) 09/04/2013 2 - Rash KEFLEX (CEPHALEXIN) 11/12/2013 14 - Other: See Comments Comments: Makes infection worse- patient denies this on 02/25/2014 MORPHINE 08/30/2013 2 - Rash 9 - Itching ZOFRAN (ONDANSETRON HCL (PF)) 01/14/2015 14 - Other: See Comments Comments: syncope Date Reviewed: 12/25/2021 Reviewed by: Earnestine Tomas RN - Fully Assessed Reason for Visit: Patient Question [1477] Prescriptions as of 12/25/2021 - linaCLOtide (LINZESS) 72 mcg capsule Take 1 capsule by mouth once daily. Administer on an empty stomach. Swallow whole; DO NOT crush or chew. - insulin aspart U-100 (NOVOLOG U-100 INSULIN ASPART) 100 unit/mL Use with insulin pump upto 100 units/day - blood sugar diagnostic (CONTOUR NEXT TEST STRIPS) test strip Use as instructed to check blood glucose 7 times daily. - Acetone, Urine, Test (KETONE URINE TEST) Use as directed - hydrOXYzine HCl (ATARAX) 50 mg tablet Take 50 mg by mouth every 6 hours as needed. - lancets (GameWith LANCETS) 30 gauge 10 x daily DX Code: O24.011 on insulin RUFINA voucher has been faxed - sertraline (ZOLOFT) 50 mg tablet - busPIRone (BUSPAR) 5 mg tablet - glucose 4 gram chewable tablet Take 4 tablets by mouth as needed. - promethazine HCl (PHENERGAN ORAL) Take by mouth as needed. - lisinopril 2.5 mg tablet Take 2.5 mg by mouth once daily. - glucagon, human recombinant, (GLUCAGON EMERGENCY KIT, HUMAN,) 1 mg injection Inject (1)one mg intramuscularly or subcutaneously for insulin shock. 250.03 Meds Comments as of 01/09/2020: All meds reviewed before sx. Pt has aye also for after sx. CL 01/09/20 IC PNV prenata plus multivitamin Problem List As Of Date 12/25/2021 Noted Resolved Retinal detachment [H33.20] 10/26/2012 12/25/2012 SUMMARY [V999.95] 12/25/2012 Acute chest pain [R07.9] 12/25/2012 Marfan syndrome [Q87.40] 12/25/2012 DM (diabetes mellitus) (HCC) [E11.9] 12/25/2012 Gastroparesis due to DM (HCC) [E11.43, K31.84] 12/25/2012 PTSD (post-traumatic stress disorder) [F43.10] 12/25/2012 DVT prophylaxis [Z29.9] 12/25/2012 09/04/2013 DISPOSITION AND FOLLOW-UP [V999.01] 12/25/2012 09/04/2013 HTN (hypertension) [I10] Hypertension in , antepartum [O16.9] 09/19/2013 01/08/2014 GBS (group B Streptococcus carrier), +RV cultur*11/11/2013 04/16/2014 [Z34.90] 11/22/2013 04/16/2014 Diabetes mellitus in (HCC) [O24.919] 12/25/2013 04/16/2014 DKA (diabetic ketoacidoses) [E11.10] 01/08/2014 Aortic root aneurysm (HCC) [I71.9] 01/08/2014 DVT prophylaxis [Z29.9] 02/25/2014 04/16/2014 care and examination [Z39.2] 02/25/2014 04/16/2014 Near syncope [R55] 06/17/2014 Dyspnea [R06.00] 11/04/2014 Pre-op testing [Z01.818] 11/28/2014 Atelectasis [J98.11] 12/10/2014 Fluid overload [E87.70] 12/10/2014 12/15/2014 Tachycardia, unspecified [R00.0] 12/10/2014 12/12/2014 Post-operative pain [G89.18] 12/10/2014 Anxiety [F41.9] 12/10/2014 12/13/2014 Pre-existing type 1 diabetes mellitus in pregna*08/05/2015 10/03/2018 Hereditary disease in family possibly affecting*10/07/2015 Diabetes (HCC) [E11.9] 10/30/2015 Abdominal pain complicating , antepart*11/12/2015 [Z34.90] 01/28/2016 03/06/2017 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41570, L500.88901, L500.97315, L500.35010, L500.16607 ####[facility] AQQEPDLGJU1788 [place], [place] [address]Vo# [phone] HCGon 12-25-2021 HCG SER RESULT Negative Normal NEGATIVE [facility] Comment on above: Order Comment: Campu s: M Performed By: #### L 500.42920, L500.95249, L500.32954, L500.50763, L500.53529 ####[facility] LBPNABGYOU2729 [place], [place] [address]Ne# [phone] HP.IMS.ADMon 12-25-2021 Admission-H&P Normal [facility] HP.IMS.ADM Normal [facility] LACTATE BLOODon 12-25-2021 LACTATE BLOOD 3.03 MMOL/L High 0.40-2.00 [facility] Comment on above: Order Comment: Campu s: M Performed By: #### L 550.30678, L100.95032 ####[facility] FBPHCZLBKN1741 [place], [place] [address]Io# [phone] LIPASEon 12-25-2021 Lipase [Catalytic activity/Vol] 23 U/L Normal 12-60 [facility] Comment on above: Order Comment: Campu s: M Result Comment: NOTE NEW NORMAL RANGE DUE TO REAGENT CHANGE Performed By: #### L 500.47729, L500.58067, L500.39911, L500.80993, L500.62358 ####[facility] GFYDTUPXWE9999 [place], [place] [address]Xi# [phone] LIVERon 12-25-2021 Albumin [Mass/Vol] 4.2 g/dL Normal 3.2-5.0 [facility] Comment on above: Order Comment: Campu s: M Performed By: #### L 500.93897, L500.98988, L500.52142, L500.28710, L500.91279 ####[facility] JWVHYSOEGL3044 [place], [place] [address]Ga# [phone] Albumin/Globulin [Mass ratio] 1.6 {ratio} Normal 0.8-2.0 [facility] Comment on above: Order Comment: Campu s: M Performed By: #### L 500.92104, L500.01761, L500.42026, L500.22557, L500.80766 ####[facility] GPMKMIMYLG1256 [place], [place] [address]Qi# [phone] ALK PHOS 92 U/L Normal 45-117 [facility] Comment on above: Order Comment: Campu s: M Performed By: #### L 500.41345, L500.99785, L500.81380, L500.71173, L500.09815 ####[facility] KEXJJSVXNB9045 [place], [place] [address]Xp# [phone] ALT [Catalytic activity/Vol] 13 U/L Normal 13-61 [facility] Comment on above: Order Comment: Campu s: M Result Comment: RESU LTS MAY BE FALSELY DEPRESSED AFTER THE ADMINISTRATION OFSULFASALAZINE AND/OR SULFAPYRIDINE. Performed By: #### L 500.55302, L500.31155, L500.14285, L500.24695, L500.60337 ####[facility] HSYFATOREK0775 [place], [place] [address]Et# [phone] AST [Catalytic activity/Vol] 18 U/L Normal 8-34 [facility] Comment on above: Order Comment: Campu s: M Result Comment: RESU LTS MAY BE FALSELY DEPRESSED AFTER THE ADMINISTRATION OFSULFASALAZINE AND/OR SULFAPYRIDINE. Performed By: #### L 500.38763, L500.17803, L500.16679, L500.87506, L500.52472 ####[facility] DKRHDDRNKM[address] [place] [address]Fx# [phone] BILI DIRECT 0.3 MG/DL Normal 0.00-0.36 [facility] Comment on above: Order Comment: Campu s: M Result Comment: NOTE NEW NORMAL RANGE DUE TO REAGENT CHANGE Performed By: #### L 500.12379, L500.52524, L500.99158, L500.89667, L500.53971 ####[facility] MPSUDVSSHC[address] [place] [address]Qn# [phone] BILI TOTAL 0.90 MG/DL Normal 0.2-1.0 [facility] Comment on above: Order Comment: Campu s: M Performed By: #### L 500.45799, L500.05420, L500.28930, L500.12809, L500.94165 ####[facility] WCPLTNKMSH5374 [place], [place] [address]Aq# [phone] Globulin (S) [Mass/Vol] 2.6 g/dL Normal 2.2-4.2 [facility] Comment on above: Order Comment: Campu s: M Performed By: #### L 500.25782, L500.08209, L500.27363, L500.23293, L500.31572 ####[facility] SUBEFVPLEW5130 [place], [place] [address]Gb# [phone] Protein [Mass/Vol] 6.8 g/dL Normal 6.0-8.5 [facility] Comment on above: Order Comment: Campu s: M Performed By: #### L 500.37886, L500.63321, L500.58520, L500.27814, L500.72892 ####[facility] NMJNETYWXD4439 [place], [place] [address]Rl# [phone] RURBYWXKWT02io 12-25-2021 SARS-CoV-2 (COVID-19) RNA DANIEL+probe Ql (Unsp spec) Negative Invalid Interpretation Code Negative [facility] Comment on above: Order Comment: Campu s: M Result Comment: RESU LTS CALLED TO AND READ BACK BY BETH ROSADO/EDAT 195612/25/21 BY NANI CARLISLENegative results do not preclude SARS-CoV-2 infection andshould not be used as the sole basis for treatment or otherpatient management decisions. Negative results must becombined with clinical observation, patient history, andepidemiological information.This test was performed by PCR. Performed By: #### L 770.39538 ####[facility] LASVDOTIOB5068 [place], [place] [address]Gp# [phone] UA COMPLETEon 12-25-2021 Color (U) Straw Normal [facility] Comment on above: Order Comment: Campu s: M Performed By: #### L 600.50203 ####[facility] NUAVVMTVMS9793 [place], [place] [address]Wf# [phone] Glucose (U) [Mass/Vol] 500 mg/dL Normal NORMAL [facility] Comment on above: Order Comment: Campu s: M Performed By: #### L 600.06075 ####[facility] CEQLRDLNMA9423 [place], [place] [address]Ks# [phone] UA APPEARANCE Clear Normal CLEAR [facility] Comment on above: Order Comment: Campu s: M Performed By: #### L 600.06815 ####[facility] SKMNBSEDOU9686 [place], [place] [address]Ue# [phone] UA BILIRUBIN Negative Normal NEGATIVE [facility] Comment on above: Order Comment: Campu s: M Performed By: #### L 600.07106 ####[facility] RROTYHUQHB3490 [place], [place] [address]Dl# [phone] UA BLOOD Negative Normal NEGATIVE [facility] Comment on above: Order Comment: Campu s: M Performed By: #### L 600.36532 ####[facility] KVPWOEVUYX2021 [place], [place] [address]Ul# [phone] UA KETONE 80 Normal NEGATIVE [facility] Comment on above: Order Comment: Campu s: M Performed By: #### L 600.85480 ####[facility] FOURVPIUIN[address] [place] [address]Kg# [phone] UA LK ESTERASE Negative Normal NEGATIVE [facility] Comment on above: Order Comment: Campu s: M Performed By: #### L 600.00759 ####[facility] BYELCHKJBW[address] [place] [address]Th# [phone] UA NITRITE Negative Normal NEGATIVE [facility] Comment on above: Order Comment: Campu s: M Performed By: #### L 600.92159 ####[facility] JIPPCPSEBA[address] [place] [address]Vr# [phone] UA PH 7.0 Normal 5-6 [facility] Comment on above: Order Comment: Campu s: M Performed By: #### L 600.82301 ####[facility] QUPRBIEGLD[address] [place] [address]Mr# [phone] UA PROTEIN Negative Normal NEGATIVE [facility] Comment on above: Order Comment: Campu s: M Performed By: #### L 600.50465 ####[facility] CFBSKQTAGH[address] [place] [address]Gj# [phone] UA SPEC GRAV 1.028 Normal 1.005-1.030 [facility] Comment on above: Order Comment: Campu s: M Performed By: #### L 600.64994 ####[facility] ZXKKZFRPXZ[address] [place] [address]Ws# [phone] UA UROBILINOGEN Negative Normal NORMAL [facility] Comment on above: Order Comment: Campu s: M Performed By: #### L 600.84713 ####[facility] KREDECAQCA[address] [place] [address]Fi# [phone] VBGPEon 12-25-2021 BASE EXCESS -3.6 MMOL/L Low 0-2 [facility] Comment on above: Order Comment: Campu s: M Performed By: #### L 550.04255, L100.42952 ####[place] [address] [place], [place] [address]Tr# [phone] Body temperature 98.6 [degF] Normal [facility] Comment on above: Order Comment: Campu s: M Performed By: #### L 550.63035, L100.03791 ####[address] [address]Ou# [phone] EQUIPMENT UNKNOWN Normal [facility] Comment on above: Order Comment: Campu s: M Performed By: #### L 550.32626, L100.64478 ####[facility] GHUTNDHTXG[address] [place] [address]Kf# [phone] HCO3 (Bld) [Moles/Vol] 17.0 mmol/L Low 22-26 M [facility] Comment on above: Order Comment: Campu s: M Performed By: #### L 550.54128, L100.26248 ####[facility] [id number] [place] [address]Cb# [phone] Hemoglobin (Bld) [Mass/Vol] 14.2 g/dL Low 16.0-22.0 [facility] Comment on above: Order Comment: Campu s: M Performed By: #### L 550.16341, L100.42251 ####[facility] ENFYJGEEWN[address] [place] [address]Tj# [phone] IONIZED CA 1.13 MMOL/L Normal 1.13-1.32 [facility] Comment on above: Order Comment: Campu s: M Performed By: #### L 550.53141, L100.00829 ####[facility] [place], [place] [address]Lz# [phone] Potassium [Moles/Vol] 4.1 mmol/L Normal 3.5-5.0 [facility] Comment on above: Order Comment: Campu s: M Performed By: #### L 550.28056, L100.97750 ####[address] [address]Gn# [phone] SAMPLE SITE VENOUS Normal [facility] Comment on above: Order Comment: Campu s: M Performed By: #### L 550.95321, L100.98815 ####[address] [address]Fl# [phone] SAMPLE TYPE VENOUS Normal [facility] Comment on above: Order Comment: Campu s: M Performed By: #### L 550.23001, L100.02639 ####[address] [address]La# [phone] Sodium [Moles/Vol] 136 mmol/L Normal 136-148 [facility] Comment on above: Order Comment: Campu s: M Performed By: #### L 550.44188, L100.08624 ####[address] [address]Rz# [phone] VBG CARBOXYHGB 1.4 % Normal 0-10 [facility] Comment on above: Order Comment: Campu s: M Performed By: #### L 550.35976, L100.74217 ####[facility] PURUEQNZGC[address] [place] [address]Me# [phone] VBG METHGB 0.3 % Low 0.4-1.5 [facility] Comment on above: Order Comment: Campu s: M Performed By: #### L 550.16630, L100.69055 ####[facility] UQKSODQHPZ[address] [place] [address]Fu# [phone] VBG O2 CAPACITY 19.4 VOL% Normal [facility] Comment on above: Order Comment: Campu s: M Performed By: #### L 550.22315, L100.77937 ####[facility] JBBIHQDCNB9664 [place], [place] [address]Co# [phone] VBG O2 HG SATUR 65.5 % Normal 40-70 [facility] Comment on above: Order Comment: Campu s: M Performed By: #### L 550.86546, L100.49627 ####[facility] QIFPZEIVEH2047 [place], [place] [address]Xc# [phone] VBG PCO2 21.5 MMHG Critically low 40-50 [facility] Comment on above: Order Comment: Campu s: M Result Comment: CRIT ICAL VALUE(S) VERIFIED AND HAND DELIVERED TO AND READBACK BY DR. HOFFMAN AT 1835 12/25/21 BY JOSE MARCIAL. Performed By: #### L 550.73346, L100.48429 ####[facility] HPMVSAQHMG9383 [place], [place] [address]Yj# [phone] VBG PH 7.52 MMHG High 7.31-7.41 [facility] Comment on above: Order Comment: Campu s: M Performed By: #### L 550.75935, L100.23378 ####[facility] RKFHGBSBEZ2306 [place], [place] [address]Cw# [phone] VBG PO2 LESS THAN 32.4 Low 35-45 [facility] Comment on above: Order Comment: Campu s: M Result Comment: VALU E IS OUTSIDE OF THE VERIFIED RANGES OF THIS ANALYZER.LIN MARCIAL Performed By: #### L 550.90109, L100.01946 ####[facility] GWDISWBTQV[address] [place] [address]Jy# [phone] DISCH.SUMon 10-25-2021 DISCH.SUM Normal [facility] GLUCOSE METERon 10-25-2021 Glucose [Mass/Vol] 113 mg/dL Normal 70-115 [facility] Glucose [Mass/Vol] 108 mg/dL Normal 70-115 [facility] BMPon 10-24-2021 Anion gap [Moles/Vol] 12 mmol/L Normal 5-16 [facility] Comment on above: Order Comment: Campu s: M Performed By: #### L 500.76918, L500.78849 ####[facility] XZQVUJTZYW1299 [place], [place] [address]Lw# [phone] Calcium [Mass/Vol] 8.4 mg/dL Low 8.5-10.5 [facility] Comment on above: Order Comment: Campu s: M Result Comment: NOTE NEW NORMAL RANGE DUE TO REAGENT CHANGE Performed By: #### L 500.10597, L500.92223 ####[facility] FAILFEXKKL9091 [place], [place] [address]Nb# [phone] Chloride [Moles/Vol] 103 mmol/L Normal 98-107 [facility] Comment on above: Order Comment: Campu s: M Performed By: #### L 500.15100, L500.76421 ####[facility] [address]ZHGQZHX[address] [place] [address]Af# [phone] CO2 [Moles/Vol] 24.0 mmol/L Normal 21-32 [facility] Comment on above: Order Comment: Campu s: M Performed By: #### L 500.95124, L500.37289 ####[facility] HUAIBGQGZF6526 [place], [place] [address]Gs# [phone] Creatinine [Mass/Vol] 0.69 mg/dL Normal 0.510-0.950 [facility] Comment on above: Order Comment: Campu s: M Result Comment: Cleopatra ents receiving either N-Acetylcysteine (NAC) orMetamizole prior to venipuncture, may have falsely depressedresults. Performed By: #### L 500.13847, L500.16575 ####[facility] TRLVRHIRCT1710 [place], [place] [address]Av# [phone] Glucose [Mass/Vol] 113 mg/dL High 70-100 [facility] Comment on above: Order Comment: Campu s: M Result Comment: 70-1 00- Normal Fasting; 100-125 Impaired Fasting; greaterthan 126 on more than one result- Diabetes. ADA guidelines.Results may be falsely elevated after the administration ofSulfapyridine.Results may be falsely depressed after the administration ofSulfasalazine. Performed By: #### L 500.38320, L500.56038 ####[facility] HVPBZEUGCK3364 [place], [place] [address]Vk# [phone] Potassium [Moles/Vol] 3.0 mmol/L Low 3.5-5.1 [facility] Comment on above: Order Comment: Campu s: M Result Comment: NOT A CRITICAL Performed By: #### L 500.01489, L500.18601 ####[address] [address]Ox# [phone] Sodium [Moles/Vol] 139 mmol/L Normal 136-145 [facility] Comment on above: Order Comment: Campu s: M Performed By: #### L 500.11637, L500.35080 ####[facility] KPFRTRNKSF[address] [place] [address]Pn# [phone] Urea nitrogen [Mass/Vol] 10 mg/dL Normal 7-26 [facility] Comment on above: Order Comment: Campu s: M Performed By: #### L 500.72689, L500.09256 ####[facility] K[address]ZJLIMSL[address] [place] [address]Fn# [phone] Urea nitrogen/Creatinine [Mass ratio] 15 mg/mg Normal 15-24 [facility] Comment on above: Order Comment: Campu s: M Performed By: #### L 500.40246, L500.02052 ####[facility] [address]ZOPMXGXRU[address] [place] [address]Tt# [phone] CBC W/DIFFon 10-24-2021 BASO ABS 0.00 K/CU MM Normal 0-0.2 [facility] Comment on above: Order Comment: Campu s: M Performed By: #### L 200.47623 ####[facility] CNXZIGOAMS1016 [place], [place] [address]Xm# [phone] Basophils/100 WBC (Bld) 0.2 % Normal 0-2 [facility] Comment on above: Order Comment: Campu s: M Performed By: #### L 200.86494 ####[facility] FTISGGUKPA[address] [place] [address]Gq# [phone] EOS ABS 0.00 K/CU MM Normal 0-0.5 [facility] Comment on above: Order Comment: Campu s: M Performed By: #### L 200.96954 ####[place] [address]608Ph# [phone] Eosinophils/100 WBC (Bld) 0.0 % Normal 0-5 [facility] Comment on above: Order Comment: Campu s: M Performed By: #### L 200.09233 ####[facility] ZUAXXWFHYX[address] [place] [address]Yu# [phone] Erythrocyte distribution width (RBC) [Ratio] 13.3 % Normal 11-14.5 [facility] Comment on above: Order Comment: Campu s: M Performed By: #### L 200.90588 ####[address] [address]Vj# [phone] Hematocrit (Bld) [Volume fraction] 36.5 % Normal 35.0-47.0 [facility] Comment on above: Order Comment: Campu s: M Performed By: #### L 200.65289 ####[facility] BKUNUBLXGP[address] [place] [address]Pl# [phone] Hemoglobin (Bld) [Mass/Vol] 12.3 g/dL Normal 11.5-15.5 [facility] Comment on above: Order Comment: Campu s: M Performed By: #### L 200.81963 ####[facility] TRMFLIILIO[address] [place], [place] [address]Ph# [phone] IMMATR GRAN ABS 0.20 K/CU MM Normal Less than 2 [facility] Comment on above: Order Comment: Campu s: M Performed By: #### L 200.98099 ####[facility] KAOTDPPSPY7770 [place], [place] [address]Ak# [phone] IMMATURE GRAN % 1.3 % Normal Less than 2 [facility] Comment on above: Order Comment: Campu s: M Performed By: #### L 200.80639 ####[facility] JXAJXXHTHT[address] [place], [place] [address]Ph# [phone] LYMPH ABS 1.90 K/CU MM Normal 0.9-4.4 [facility] Comment on above: Order Comment: Campu s: M Performed By: #### L 200.52846 ####[place] [address]Ph# [phone] Lymphocytes/100 WBC (Bld) 14.9 % Low 20-40 [facility] Comment on above: Order Comment: Campu s: M Performed By: #### L 200.00418 ####[facility] QNFEBERZQZ[address] [place], [place] [address]Ph# [phone] MCHC (RBC) [Mass/Vol] 33.7 g/dL Normal 32.0-36.0 [facility] Comment on above: Order Comment: Campu s: M Performed By: #### L 200.27139 ####[facility] IYOOEPZUWI[address] [place], [place] [address]Ph# [phone] MCV (RBC) [Entitic vol] 84.1 fL Normal 80.0-99.0 [facility] Comment on above: Order Comment: Campu s: M Performed By: #### L 200.47261 ####[facility] LEXPZDNXGT25[address] [place] [address]Vz# [phone] MONO ABS 0.70 K/CU MM Normal 0.1-1.1 [facility] Comment on above: Order Comment: Campu s: M Performed By: #### L 200.27026 ####[facility] AYAVXESCKZ4929 [place], [place] [address]Ue# [phone] Monocytes/100 WBC (Bld) 5.3 % Normal 2-10 [facility] Comment on above: Order Comment: Campu s: M Performed By: #### L 200.44556 ####[facility] ZMWWLXFKQE0269 [place], [place] [address]Vo# [phone] NEUTROPHIL ABS 10.10 K/CU MM High 2.0-8.3 [facility] Comment on above: Order Comment: Campu s: M Performed By: #### L 200.41264 ####[facility] GPIUAQAAPN[address] [place], [place] [address]Ph# [phone] Neutrophils/100 WBC (Bld) 78.3 % High 45-75 [facility] Comment on above: Order Comment: Campu s: M Performed By: #### L 200.44085 ####[facility] CRGYAKBKVT[address] [place], [place] [address]Ph# [phone] Nucleated RBC/100 WBC (Bld) [Ratio] 0.0 % Normal Less than 1 [facility] Comment on above: Order Comment: Campu s: M Performed By: #### L 200.13369 ####[facility] CLCPKKQXPE[address] [place] [address]Kt# [phone] Platelet mean volume (Bld) [Entitic vol] 11.8 fL Normal 9.4-12.4 [facility] Comment on above: Order Comment: Campu s: M Performed By: #### L 200.26734 ####[facility] RSXDBSSRQG[address] [place] [address]Ir# [phone] PLT 176 K/CU MM Normal 150-450 [facility] Comment on above: Order Comment: Campu s: M Performed By: #### L 200.96179 ####[facility] GNSKKWEVSM[address] [place], [place] [address]Ph# [phone] RBC 4.34 M/CU MM Normal 3.90-5.30 [facility] Comment on above: Order Comment: Campu s: M Performed By: #### L 200.97736 ####[facility] LBGCLDAMBM0829 [place], [place] [address]Xf# [phone] WBC 12.9 K/CUMM High 4.5-11.0 [facility] Comment on above: Order Comment: Campu s: M Performed By: #### L 200.98446 ####[facility] [address]KUBMEZC[address] [place] [address]Fd# [phone] GFR ESTon 10-24-2021 IF AMER Greater than 60 Normal [facility] Comment on above: Order Comment: Campu s: M Performed By: #### L 500.96896, L500.10411 ####[facility] OIKFTQOFRF1919 [place], [place] [address]Bq# [phone] IF non-AFR AMER Greater than 60 Normal [facility] Comment on above: Order Comment: Campu s: M Performed By: #### L 500.97560, L500.82088 ####[facility] CAJUMWWRDY2158 [place], [place] [address]Do# [phone] GLUCOSE METERon 10-24-2021 Glucose [Mass/Vol] 203 mg/dL High 70-115 [facility] Glucose [Mass/Vol] 115 mg/dL Normal 70-115 [facility] Glucose [Mass/Vol] 103 mg/dL Normal 70-115 [facility] Glucose [Mass/Vol] 112 mg/dL Normal 70-115 [facility] PR[facility] IMSon 10-24-2021 PROG IMS Normal [facility] Progress Note-Hospitalist Normal [facility] PTon 10-24-2021 INR Coag (PPP) [Relative time] 1.05 {INR} Normal 0.9-1.1 [facility] Comment on above: Order Comment: Campu s: M Result Comment: Den mmended PT INR therapeutic range for exterminator andprophylactic therapy is 2.0 - 3.0. For heart valve andshunt patients the range is 2.5 - 3.5. Performed By: #### L 300.74961 ####[facility] I[address]QWFGZUL[address] [place] [address]Tx# [phone] PTS 11.4 SECONDS Normal 9.5-12.0 [facility] Comment on above: Order Comment: Campu s: M Performed By: #### L 300.41125 ####[facility] IRPSCWXKFE[address] [place] [address]Gw# [phone] UA COMPLETEon 10-24-2021 Color (U) Straw Normal [facility] Comment on above: Order Comment: Campu s: M Performed By: #### L 600.80573 ####[address] [address]Vw# [phone] Glucose (U) [Mass/Vol] Negative Normal NORMAL [facility] Comment on above: Order Comment: Campu s: M Performed By: #### L 600.88309 ####[facility] [id number] [place] [address]Hw# [phone] UA APPEARANCE Clear Normal CLEAR [facility] Comment on above: Order Comment: Campu s: M Performed By: #### L 600.30224 ####[facility] [id number] [place] [address]Mw# [phone] UA BILIRUBIN Negative Normal NEGATIVE [facility] Comment on above: Order Comment: Campu s: M Performed By: #### L 600.56028 ####[facility] [id number] [place] [address] 369[address]Ah# [phone] UA BLOOD Negative Normal NEGATIVE [facility] Comment on above: Order Comment: Campu s: M Performed By: #### L 600.33760 ####[facility] [id number] [place] [address] 98248As# [phone] UA KETONE 20 Normal NEGATIVE [facility] Comment on above: Order Comment: Campu s: M Performed By: #### L 600.06286 ####[facility] [id number] [place], [place] [address]Uf# [phone] UA LK ESTERASE Negative Normal NEGATIVE [facility] Comment on above: Order Comment: Campu s: M Performed By: #### L 600.05592 ####[facility] SPJJAQBXGU3624 [place], [place] [address]By# [phone] UA NITRITE Negative Normal NEGATIVE [facility] Comment on above: Order Comment: Campu s: M Performed By: #### L 600.34097 ####[facility] ZCEWAGNTHH1727 [place], [place] [address]Hs# [phone] UA PH 7.0 Normal - [facility] Comment on above: Order Comment: Campu s: M Performed By: #### L 600.16213 ####[facility] [id number] [place] [address]Xo# [phone] UA PROTEIN Negative Normal NEGATIVE [facility] Comment on above: Order Comment: Campu s: M Performed By: #### L 600.89666 ####[facility] [address]EEYWCRMH[address] [place] [address]Xa# [phone] UA SPEC GRAV 1.009 Normal 1.005-1.030 [facility] Comment on above: Order Comment: Campu s: M Performed By: #### L 600.00354 ####[facility] [address]YPWYPCN[address] [place] [address]Au# [phone] UA UROBILINOGEN Negative Normal NORMAL [facility] Comment on above: Order Comment: Campu s: M Performed By: #### L 600.94019 ####[facility] GSNPTWQEDN[address] [place] [address]Mb# [phone] BMPon 10-23-2021 Anion gap [Moles/Vol] 12 mmol/L Normal -16 [facility] Comment on above: Order Comment: Campu s: M Performed By: #### L 500.59748, L500.45759, L500.85103 ####[facility] VFNYWXNIOE1526 [place], [place] [address]Kb# [phone] Calcium [Mass/Vol] 8.7 mg/dL Normal 8.5-10.5 [facility] Comment on above: Order Comment: Campu s: M Result Comment: NOTE NEW NORMAL RANGE DUE TO REAGENT CHANGE Performed By: #### L 500.47607, L500.36863, L500.99261 ####[facility] OPWXVEKOEP9973 [place], [place] [address]Up# [phone] Chloride [Moles/Vol] 107 mmol/L Normal 98-107 [facility] Comment on above: Order Comment: Campu s: M Performed By: #### L 500.72007, L500.38640, L500.68780 ####[facility] QQIDFYMHFG8855 [place], [place] [address]Su# [phone] CO2 [Moles/Vol] 22.0 mmol/L Normal 21-32 [facility] Comment on above: Order Comment: Campu s: M Performed By: #### L 500.18560, L500.31825, L500.10020 ####[facility] TSAGHGKYAZ4007 [place], [place] [address]Gs# [phone] Creatinine [Mass/Vol] 0.62 mg/dL Normal 0.510-0.950 [facility] Comment on above: Order Comment: Campu s: M Result Comment: Cleopatra ents receiving either N-Acetylcysteine (NAC) orMetamizole prior to venipuncture, may have falsely depressedresults. Performed By: #### L 500.92390, L500.32127, L500.03605 ####[facility] LMRXYQCLOZ5796 [place], [place] [address]Xz# [phone] Glucose [Mass/Vol] 208 mg/dL High 70-100 [facility] Comment on above: Order Comment: Campu s: M Result Comment: 70-1 00- Normal Fasting; 100-125 Impaired Fasting; greaterthan 126 on more than one result- Diabetes. ADA guidelines.Results may be falsely elevated after the administration ofSulfapyridine.Results may be falsely depressed after the administration ofSulfasalazine. Performed By: #### L 500.39523, L500.69683, L500.04837 ####[facility] GMFYTMGPSG3494 [place], [place] [address]Wk# [phone] Potassium [Moles/Vol] 3.2 mmol/L Low 3.5-5.1 [facility] [place] Comment on above: Order Comment: Campu s: M Performed By: #### L 500.15501, L500.49727, L500.31467 ####[facility] OWSYBLFCLI6124 [place], [place] [address]Mh# [phone] Sodium [Moles/Vol] 141 mmol/L Normal 136-145 [facility] Comment on above: Order Comment: Campu s: M Performed By: #### L 500.78516, L500.21927, L500.47221 ####[facility] RRHHLJSOPB2017 [place], [place] [address]Eo# [phone] Urea nitrogen [Mass/Vol] 16 mg/dL Normal 7-26 [facility] Comment on above: Order Comment: Campu s: M Performed By: #### L 500.97649, L500.47710, L500.10829 ####[facility] MTADGFCFKJ2232 [place], [place] [address]Ll# [phone] Urea nitrogen/Creatinine [Mass ratio] 26 mg/mg High 15-24 [facility] Comment on above: Order Comment: Campu s: M Performed By: #### L 500.66285, L500.50732, L500.61868 ####[facility] KRXSGUBLFU[address] [place] [address]Cj# [phone] CBC W/DIFFon 10-23-2021 BASO ABS 0.00 K/CU MM Normal 0-0.2 [facility] Comment on above: Order Comment: Campu s: M Performed By: #### L 200.78938 ####[facility] LHQYGCKUNG[address] [place] [address]Zo# [phone] Basophils/100 WBC (Bld) 0.2 % Normal 0-2 [facility] [place] Comment on above: Order Comment: Campu s: M Performed By: #### L 200.44268 ####[facility] QJYPFFVXOB2073 [place], [place] [address]As# [phone] EOS ABS 0.00 K/CU MM Normal 0-0.5 [facility] [place] Comment on above: Order Comment: Campu s: M Performed By: #### L 200.09274 ####[facility] WCRTOIZSCU[address] [place] [address]Or# [phone] Eosinophils/100 WBC (Bld) 0.0 % Normal 0-5 [facility] Comment on above: Order Comment: Campu s: M Performed By: #### L 200.53147 ####[address] [address]Rj# [phone] Erythrocyte distribution width (RBC) [Ratio] 13.9 % Normal 11-14.5 [facility] Comment on above: Order Comment: Campu s: M Performed By: #### L 200.99673 ####[facility] [id number] [place] [address]Dd# [phone] Hematocrit (Bld) [Volume fraction] 32.9 % Low 35.0-47.0 [facility] Comment on above: Order Comment: Campu s: M Performed By: #### L 200.82565 ####[facility] UEWLDHMRTE34[address] [place] [address]Wz# [phone] Hemoglobin (Bld) [Mass/Vol] 11.0 g/dL Low 11.5-15.5 [facility] Comment on above: Order Comment: Campu s: M Performed By: #### L 200.04561 ####[facility] FNYHMFFOXW2155[address] [place] [address]Ff# [phone] IMMATR GRAN ABS 0.10 K/CU MM Normal Less than 2 [facility] Comment on above: Order Comment: Campu s: M Performed By: #### L 200.37729 ####[facility] UGYYMWWHSC8839 [place], [place] [address]Xp# [phone] IMMATURE GRAN % 0.8 % Normal Less than 2 [facility] Comment on above: Order Comment: Campu s: M Performed By: #### L 200.17618 ####[facility] [id number] [place] [address]Lc# [phone] LYMPH ABS 1.80 K/CU MM Normal 0.9-4.4 [facility] Comment on above: Order Comment: Campu s: M Performed By: #### L 200.91984 ####[place] [address]Ph# [phone] Lymphocytes/100 WBC (Bld) 10.5 % Low 20-40 [facility] Comment on above: Order Comment: Campu s: M Performed By: #### L 200.29799 ####[facility] ABXABTDWMG[address] [place], [place] [address]Ph# [phone] MCHC (RBC) [Mass/Vol] 33.4 g/dL Normal 32.0-36.0 [facility] Comment on above: Order Comment: Campu s: M Performed By: #### L 200.82415 ####[facility] SAYYNTOYHJ[address] [place] [address]Ci# [phone] MCV (RBC) [Entitic vol] 84.6 fL Normal 80.0-99.0 [facility] Comment on above: Order Comment: Campu s: M Performed By: #### L 200.60565 ####[facility] DEKJUPCBJB[address] [place] [address]Kd# [phone] MONO ABS 0.70 K/CU MM Normal 0.1-1.1 [facility] Comment on above: Order Comment: Campu s: M Performed By: #### L 200.74291 ####[facility] YHYEIZQJFM[address] [place], [place] [address]Ph# [phone] Monocytes/100 WBC (Bld) 3.9 % Normal 2-10 [facility] Comment on above: Order Comment: Campu s: M Performed By: #### L 200.36057 ####[facility] SRRBGKZXRF1205 [place], [place] [address]Ym# [phone] NEUTROPHIL ABS 14.50 K/CU MM High 2.0-8.3 [facility] Comment on above: Order Comment: Campu s: M Performed By: #### L 200.99898 ####[facility] YJEFKSEZJF69[address] [place], [place] [address]Ph# [phone] Neutrophils/100 WBC (Bld) 84.6 % High 45-75 [facility] Comment on above: Order Comment: Campu s: M Performed By: #### L 200.70273 ####[facility] NVASKKCKQA035[address] [place], [place] [address]Ph# [phone] Nucleated RBC/100 WBC (Bld) [Ratio] 0.0 % Normal Less than 1 [facility] Comment on above: Order Comment: Campu s: M Performed By: #### L 200.40596 ####[facility] ZBGDZRGCPI[address] [place], [place] [address]Ph# [phone] Platelet mean volume (Bld) [Entitic vol] 12.2 fL Normal 9.4-12.4 [facility] Comment on above: Order Comment: Campu s: M Performed By: #### L 200.67294 ####[facility] V[address]BUZSXFA[address] [place] [address]Jd# [phone] PLT 145 K/CU MM Low 150-450 [facility] Comment on above: Order Comment: Campu s: M Performed By: #### L 200.22032 ####[facility] BOBPKUHJUO6845 [place], [place] [address]Bu# [phone] RBC 3.89 M/CU MM Low 3.90-5.30 [facility] Comment on above: Order Comment: Campu s: M Performed By: #### L 200.26082 ####[facility] WNQIPJONLT6581 [place], [place] [address]Cn# [phone] WBC 17.1 K/CUMM High 4.5-11.0 [facility] Comment on above: Order Comment: Campu s: M Performed By: #### L 200.41252 ####[facility] UFTLFSQOXS9800 [place], [place] [address]Et# [phone] GFR ESTon 10-23-2021 IF AMER Greater than 60 Normal [facility] Comment on above: Order Comment: Campu s: M Performed By: #### L 500.97221, L500.02920, L500.62002 ####[facility] MGZMDKVJMM9803 [place], [place] [address]Mb# [phone] IF non-AFR AMER Greater than 60 Normal [facility] Comment on above: Order Comment: Campu s: M Performed By: #### L 500.46907, L500.69625, L500.94347 ####[facility] JBKGDFIULJ9846 [place], [place] [address]Im# [phone] GLUCOSE METERon 10-23-2021 Glucose [Mass/Vol] 142 mg/dL High 70-115 [facility] Glucose [Mass/Vol] 127 mg/dL High 70-115 [facility] Glucose [Mass/Vol] 172 mg/dL High 70-115 [facility] MAGNESIUMon 10-23-2021 Magnesium [Mass/Vol] 1.7 mg/dL Normal 1.6-2.6 [facility] Comment on above: Order Comment: Campu s: M Performed By: #### L 500.14667, L500.76926, L500.09866 ####[facility] MSHGXNOKHE2264 [place], [place] [address]Xn# [phone] PROG IMSon 10-23-2021 PROG IMS Normal [facility] Progress Note-Hospitalist Normal [facility] [place] BMPon 10-22-2021 Anion gap [Moles/Vol] 10 mmol/L Normal 5-16 [facility] Comment on above: Order Comment: Campu s: M Performed By: #### L 500.04042, L500.74989 ####[facility] ZOKXAUXGJQ0229 [place], [place] [address]Ng# [phone] Calcium [Mass/Vol] 8.9 mg/dL Normal 8.5-10.5 [facility] Comment on above: Order Comment: Campu s: M Result Comment: NOTE NEW NORMAL RANGE DUE TO REAGENT CHANGE Performed By: #### L 500.80748, L500.65385 ####[facility] DDUSMPIXDY8696 [place], [place] [address]Do# [phone] Chloride [Moles/Vol] 109 mmol/L High 98-107 [facility] Comment on above: Order Comment: Campu s: M Performed By: #### L 500.56273, L500.49925 ####[facility] ASLEEIITAS9006 [place], [place] [address]Qs# [phone] CO2 [Moles/Vol] 20.0 mmol/L Low 21-32 [facility] Comment on above: Order Comment: Campu s: M Performed By: #### L 500.25481, L500.78801 ####[facility] OMLMHUTVAC0616 [place], [place] [address]Ss# [phone] Creatinine [Mass/Vol] 0.63 mg/dL Normal 0.510-0.950 [facility] [place] Comment on above: Order Comment: Campu s: M Result Comment: Cleopatra ents receiving either N-Acetylcysteine (NAC) orMetamizole prior to venipuncture, may have falsely depressedresults. Performed By: #### L 500.93437, L500.07280 ####[facility] MYFOFLYYAJ1505 [place], [place] [address]Qh# [phone] Glucose [Mass/Vol] 237 mg/dL High 70-100 [facility] Comment on above: Order Comment: Campu s: M Result Comment: 70-1 00- Normal Fasting; 100-125 Impaired Fasting; greaterthan 126 on more than one result- Diabetes. ADA guidelines.Results may be falsely elevated after the administration ofSulfapyridine.Results may be falsely depressed after the administration ofSulfasalazine. Performed By: #### L 500.65694, L500.92189 ####[facility] APSKDQGQKC1800 [place], [place] [address]Cj# [phone] Potassium [Moles/Vol] 3.8 mmol/L Normal 3.5-5.1 [facility] Comment on above: Order Comment: Campu s: M Performed By: #### L 500.89685, L500.29922 ####[facility] [address]ZDTPGSN[address] [place] [address]Hp# [phone] Sodium [Moles/Vol] 140 mmol/L Normal 136-145 [facility] Comment on above: Order Comment: Campu s: M Performed By: #### L 500.84898, L500.37113 ####[facility] QUIWQDZMMX90[address] [place] [address]Og# [phone] Urea nitrogen [Mass/Vol] 15 mg/dL Normal 7-26 [facility] Comment on above: Order Comment: Campu s: M Performed By: #### L 500.62875, L500.79899 ####[facility] EITDDLEEDM1328 [place], [place] [address]Ep# [phone] Urea nitrogen/Creatinine [Mass ratio] 24 mg/mg Normal 15-24 [facility] Comment on above: Order Comment: Campu s: M Performed By: #### L 500.88454, L500.41028 ####[facility] ZWZCMMEHYE9272 [place], [place] [address]Ry# [phone] Urea nitrogen/Creatinine [Mass ratio] 25 mg/mg High 15-24 [facility] Comment on above: Order Comment: Campu s: M Performed By: #### L 500.06554, L500.78990, L500.24335, L500.02813 ####[facility] THTKAYRULN[address] [place] [address]Cx# [phone] Anion gap [Moles/Vol] 12 mmol/L Normal 5-16 [facility] Comment on above: Order Comment: Campu s: M Performed By: #### L 500.16090, L500.43187, L500.94300, L500.05802 ####[facility] UMVGFXCDYO4626 [place], [place] [address]Ee# [phone] Calcium [Mass/Vol] 10.1 mg/dL Normal 8.5-10.5 [facility] Comment on above: Order Comment: Campu s: M Result Comment: NOTE NEW NORMAL RANGE DUE TO REAGENT CHANGE Performed By: #### L 500.52415, L500.96462, L500.51195, L500.62256 ####[facility] OMQSKWZNUS7074 [place], [place] [address]Fz# [phone] Chloride [Moles/Vol] 107 mmol/L Normal 98-107 [facility] Comment on above: Order Comment: Campu s: M Performed By: #### L 500.11453, L500.37056, L500.16457, L500.14556 ####[facility] NLHXFWDEDO9584 [place], [place] [address]Cb# [phone] CO2 [Moles/Vol] 20.0 mmol/L Low 21-32 [facility] Comment on above: Order Comment: Campu s: M Performed By: #### L 500.59497, L500.34836, L500.42819, L500.31450 ####[facility] AKIMVXMXIF0694 [place], [place] [address]Pt# [phone] Creatinine [Mass/Vol] 0.64 mg/dL Normal 0.510-0.950 [facility] [place] Comment on above: Order Comment: Campu s: M Result Comment: Cleopatra ents receiving either N-Acetylcysteine (NAC) orMetamizole prior to venipuncture, may have falsely depressedresults. Performed By: #### L 500.68500, L500.63507, L500.66993, L500.86366 ####[facility] UXLJAXESUP4988 [place], [place] [address]Ve# [phone] Glucose [Mass/Vol] 309 mg/dL High 70-100 [facility] Comment on above: Order Comment: Campu s: M Result Comment: 70-1 00- Normal Fasting; 100-125 Impaired Fasting; greaterthan 126 on more than one result- Diabetes. ADA guidelines.Results may be falsely elevated after the administration ofSulfapyridine.Results may be falsely depressed after the administration ofSulfasalazine. Performed By: #### L 500.16088, L500.22185, L500.73473, L500.33479 ####[facility] RXEGRLFVXJ8970 [place], [place] [address]Wl# [phone] Potassium [Moles/Vol] 3.9 mmol/L Normal 3.5-5.1 [facility] Comment on above: Order Comment: Campu s: M Performed By: #### L 500.78598, L500.71637, L500.27319, L500.14469 ####[facility] QNINPWEDBM7038 [place], [place] [address]Zb# [phone] Sodium [Moles/Vol] 139 mmol/L Normal 136-145 [facility] Comment on above: Order Comment: Campu s: M Performed By: #### L 500.34355, L500.24648, L500.85039, L500.33517 ####[facility] YPVMLHSWGN3778 [place], [place] [address]Dw# [phone] Urea nitrogen [Mass/Vol] 16 mg/dL Normal 7-26 [facility] Comment on above: Order Comment: Campu s: M Performed By: #### L 500.54366, L500.28199, L500.54578, L500.48162 ####[facility] MFMYWOECLV0805 [place], [place] [address]Jh# [phone] CBC W/DIFFon 10-22-2021 BASO ABS 0.10 K/CU MM Normal 0-0.2 [facility] Comment on above: Order Comment: Campu s: M Performed By: #### L 200.06025 ####[facility] EBYIVGIKNW4690 [place], [place] [address]Gr# [phone] Basophils/100 WBC (Bld) 0.2 % Normal 0-2 [facility] Comment on above: Order Comment: Campu s: M Performed By: #### L 200.57916 ####[address] [address]Ya# [phone] EOS ABS 0.00 K/CU MM Normal 0-0.5 [facility] Comment on above: Order Comment: Campu s: M Performed By: #### L 200.80818 ####[place] [address]697[address]Ph# [phone] Eosinophils/100 WBC (Bld) 0.0 % Normal 0-5 [facility] Comment on above: Order Comment: Campu s: M Performed By: #### L 200.10277 ####[address] [address]Jy# [phone] Erythrocyte distribution width (RBC) [Ratio] 13.5 % Normal 11-14.5 [facility] Comment on above: Order Comment: Campu s: M Performed By: #### L 200.92855 ####[address] [address]Dt# [phone] Hematocrit (Bld) [Volume fraction] 39.5 % Normal 35.0-47.0 [facility] Comment on above: Order Comment: Campu s: M Performed By: #### L 200.12349 ####[facility] HKOALRCLEL[address] [place] [address]Me# [phone] Hemoglobin (Bld) [Mass/Vol] 13.4 g/dL Normal 11.5-15.5 [facility] Comment on above: Order Comment: Campu s: M Performed By: #### L 200.53208 ####[facility] OKHJUTGNJK145[address] [place], [place] [address]Ph# [phone] IMMATR GRAN ABS 0.20 K/CU MM Normal Less than 2 [facility] Comment on above: Order Comment: Campu s: M Performed By: #### L 200.47445 ####[facility] IQLIMBYYBD8804 [place], [place] [address]Zk# [phone] IMMATURE GRAN % 1.0 % Normal Less than 2 [facility] Comment on above: Order Comment: Campu s: M Performed By: #### L 200.67955 ####[place] [address]Ph# [phone] LYMPH ABS 1.30 K/CU MM Normal 0.9-4.4 [facility] Comment on above: Order Comment: Campu s: M Performed By: #### L 200.21488 ####[place] [address]Ph# [phone] Lymphocytes/100 WBC (Bld) 5.6 % Low 20-40 [facility] Comment on above: Order Comment: Campu s: M Performed By: #### L 200.76090 ####[facility] QIFKWZXTLF[address] [place], [place] [address]Ph# [phone] MCHC (RBC) [Mass/Vol] 33.9 g/dL Normal 32.0-36.0 [facility] [place] Comment on above: Order Comment: Campu s: M Performed By: #### L 200.76157 ####[facility] FKPCZPKGKU518[address] [place], [place] [address]Ph# [phone] MCV (RBC) [Entitic vol] 84.4 fL Normal 80.0-99.0 [facility] Comment on above: Order Comment: Campu s: M Performed By: #### L 200.39728 ####[facility] XONWCZELBW[address] [place], [place] [address]Ph# [phone] MONO ABS 0.60 K/CU MM Normal 0.1-1.1 [facility] Comment on above: Order Comment: Campu s: M Performed By: #### L 200.22963 ####[facility] GBQITKBQXO8664 [place], [place] [address]Qf# [phone] Monocytes/100 WBC (Bld) 2.6 % Normal 2-10 [facility] Comment on above: Order Comment: Campu s: M Performed By: #### L 200.70776 ####[facility] [address]HHDGRNKQ[address] [place] [address]Gz# [phone] NEUTROPHIL ABS 20.70 K/CU MM High 2.0-8.3 [facility] Comment on above: Order Comment: Campu s: M Performed By: #### L 200.32958 ####[facility] RXJPMEWZMR[address] [place] [address]Fp# [phone] Neutrophils/100 WBC (Bld) 90.6 % High 45-75 [facility] Comment on above: Order Comment: Campu s: M Performed By: #### L 200.92196 ####[facility] VYJYLAWENL2675 [place], [place] [address]Dd# [phone] Nucleated RBC/100 WBC (Bld) [Ratio] 0.0 % Normal Less than 1 [facility] Comment on above: Order Comment: Campu s: M Performed By: #### L 200.44711 ####[facility] WMHHXHJNOL5077 [place], [place] [address]Xl# [phone] Platelet mean volume (Bld) [Entitic vol] 13.2 fL High 9.4-12.4 [facility] Comment on above: Order Comment: Campu s: M Performed By: #### L 200.90577 ####[facility] DBXDJYBHWP0020 [place], [place] [address]Ro# [phone] PLT 164 K/CU MM Normal 150-450 [facility] Comment on above: Order Comment: Campu s: M Result Comment: Conf irmed by slide estimate. Performed By: #### L 200.99964 ####[facility] GKTEEZFLYF0253 [place] [address]Ph# [phone] PLT EST ADEQUATE Normal [facility] Comment on above: Order Comment: Campu s: M Performed By: #### L 200.46450 ####[facility] QLRHXJZRXG0932 [place], [place] [address]Ij# [phone] POIK 1+ Normal [facility] Comment on above: Order Comment: Campu s: M Performed By: #### L 200.73536 ####[facility] FWVOBAGQYK5319 [place], [place] [address]Rx# [phone] POLY 1+ Normal [facility] Comment on above: Order Comment: Campu s: M Performed By: #### L 200.86600 ####[facility] LVBQBNRIBI4072 [place], [place] [address]Qh# [phone] RBC 4.68 M/CU MM Normal 3.90-5.30 [facility] Comment on above: Order Comment: Campu s: M Performed By: #### L 200.69397 ####[facility] GNSEELOUCA8672 [place], [place] [address]Nt# [phone] WBC 22.9 K/CUMM High 4.5-11.0 [facility] Comment on above: Order Comment: Campu s: M Performed By: #### L 200.06100 ####[facility] [id number] [place] [id number]# [phone] Stacie 10-22-2021 EMERGENCY PHYSICIAN REPORT This is a preliminary report only, as the practitioner review and authentication has not occurred. [facility] ESTon 10-22-2021 IF AMER Greater than 60 [facility] Comment on above: Order Comment: Campu s: M Performed By: #### L 500.57705, L500.07338 ####[facility] [id number] [place], [place] [address]Id# [phone] IF non-AFR AMER Greater than 60 Normal [facility] Comment on above: Order Comment: Campu s: M Performed By: #### L 500.28453, L500.19119 ####[facility] [id number] [place], [place] [address]Sy# [phone] IF AMER Greater than 60 Normal [facility] Comment on above: Order Comment: Campu s: M Performed By: #### L 500.26721, L500.41214, L500.48509, L500.40321 ####[facility] [id number] [place], [place] [address]Aw# [phone] IF non-AFR AMER Greater than 60 Normal [facility] Comment on above: Order Comment: Campu s: M Performed By: #### L 500.62513, L500.81083, L500.04929, L500.22361 ####[facility] [id number] [place], [place] [address]Wv# [phone] GLUCOSE METERon 10-22-2021 Glucose [Mass/Vol] 145 mg/dL High 70-115 [facility] Glucose [Mass/Vol] 255 mg/dL High 70-115 [facility] Glucose [Mass/Vol] 232 mg/dL High 70-115 [facility] Glucose [Mass/Vol] 269 mg/dL High 70-115 [facility] Glucose [Mass/Vol] 249 mg/dL High 70-115 [facility] HPon 10-22-2021 HP Normal [facility] LIPASEon 10-22-2021 Lipase [Catalytic activity/Vol] 18 U/L Normal 12-60 [facility] Comment on above: Order Comment: Campu s: M Result Comment: NOTE NEW NORMAL RANGE DUE TO REAGENT CHANGE Performed By: #### L 500.92024, L500.20586, L500.31587, L500.03045 ####[facility] UFOAOLYTBJ7784 [place], [place] [address]Si# [phone] LIVERon 10-22-2021 Globulin (S) [Mass/Vol] 2.8 g/dL Normal 2.2-4.2 [facility] Comment on above: Order Comment: Campu s: M Performed By: #### L 500.62290, L500.27079, L500.54454, L500.93638 ####[facility] KLZFMHFQNH3215 [place], [place] [address]Nf# [phone] Albumin/Globulin [Mass ratio] 1.54 {ratio} Normal 0.8-2.0 [facility] Comment on above: Order Comment: Campu s: M Performed By: #### L 500.96954, L500.22189, L500.09727, L500.58437 ####[facility] LTWVWNZYHL9366 [place], [place] [address]Ut# [phone] Albumin [Mass/Vol] 4.3 g/dL Normal 3.2-5.0 [facility] Comment on above: Order Comment: Campu s: M Performed By: #### L 500.21603, L500.56094, L500.51636, L500.38316 ####[facility] VVRWQIDRXM4964 [place], [place] [address]Mb# [phone] ALK PHOS 100 U/L Normal 45-117 [facility] Comment on above: Order Comment: Campu s: M Performed By: #### L 500.63515, L500.91869, L500.84916, L500.55693 ####[facility] XCQLQDIZFC3572 [place], [place] [address]Un# [phone] ALT [Catalytic activity/Vol] 9 U/L Low 13-61 [facility] Comment on above: Order Comment: Campu s: M Result Comment: RESU LTS MAY BE FALSELY DEPRESSED AFTER THE ADMINISTRATION OFSULFASALAZINE AND/OR SULFAPYRIDINE. Performed By: #### L 500.82382, L500.99587, L500.31996, L500.75517 ####[facility] [id number] [place], [place] [address]Nr# [phone] AST [Catalytic activity/Vol] 12 U/L Normal 8-34 [facility] Comment on above: Order Comment: Campu s: M Result Comment: RESU LTS MAY BE FALSELY DEPRESSED AFTER THE ADMINISTRATION OFSULFASALAZINE AND/OR SULFAPYRIDINE. Performed By: #### L 500.47771, L500.01581, L500.00280, L500.59201 ####[facility] EBGOBDZDEZ3941 [place], [place] [address]Mu# [phone] BILI DIRECT 0.3 MG/DL Normal 0.00-0.36 [facility] Comment on above: Order Comment: Campu s: M Result Comment: NOTE NEW NORMAL RANGE DUE TO REAGENT CHANGE Performed By: #### L 500.85140, L500.57124, L500.14485, L500.84327 ####[facility] JQXDCRZRLR2405 [place], [place] [address]Qv# [phone] BILI TOTAL 0.80 MG/DL Normal 0.2-1.0 [facility] Comment on above: Order Comment: Campu s: M Performed By: #### L 500.67943, L500.90004, L500.18693, L500.10490 ####[facility] GVQXYPZBUJ1143 [place], [place] [address]Dg# [phone] Protein [Mass/Vol] 7.1 g/dL Normal 6.0-8.5 [facility] Comment on above: Order Comment: Campu s: M Performed By: #### L 500.30762, L500.38325, L500.92607, L500.11022 ####[facility] [address]ZZ[address] [place] [address]Ti# [phone] [id number] 10-22-2021 SARS-CoV-2 (COVID-19) RNA DANIEL+probe Ql (Unsp spec) Negative Invalid Interpretation Code Negative [facility] Comment on above: Order Comment: Campu s: M Result Comment: RESU LTS CALLED TO ALONZO MORALES/JUSTIN 0106 10/22/21 BY JHOANA PALMERNegative results do not preclude SARS-CoV-2 infection andshould not be used as the sole basis for treatment or otherpatient management decisions. Negative results must becombined with clinical observation, patient history, andepidemiological information.This test was performed by PCR. Performed By: #### L 770.44120 ####[facility] PCYPNCZLKU1863 [place], [place] [address]Sj# [phone] UA COMPLETEon 10-22-2021 UA UROBILINOGEN Negative Normal NORMAL [facility] Comment on above: Order Comment: Campu s: M Performed By: #### L 600.35012 ####[facility] BKRCULPTAP1391 [place], [place] [address]Yl# [phone] Color (U) YELLOW Normal [facility] Comment on above: Order Comment: Campu s: M Performed By: #### L 600.63201 ####[facility] FBSHAJFUAS4117 [place], [place] [address]Gc# [phone] Glucose (U) [Mass/Vol] mg/dL Normal NORMAL [facility] Comment on above: Order Comment: Campu s: M Performed By: #### L 600.38204 ####[facility] NGUUACXZMQ8359 [place], [place] [address]Tx# [phone] Mucus Ql (Urine sed) TRACE Normal NEGATIVE [facility] Comment on above: Order Comment: Campu s: M Performed By: #### L 600.54857 ####[facility] DNHFTHAARQ4428 [place], [place] [address]Jv# [phone] SQUAMOUS EPIS 2 EPI/HPF Normal 0-5 [facility] Comment on above: Order Comment: Campu s: M Performed By: #### L 600.12635 ####[facility] SPNMUOBWMO5324 [place], [place] [address]Id# [phone] UA APPEARANCE CLEAR Normal CLEAR [facility] Comment on above: Order Comment: Campu s: M Performed By: #### L 600.12239 ####[facility] CHTGYKFZNB2062 [place], [place] [address]Mw# [phone] UA BACTERIA NONE Normal NONE [facility] Comment on above: Order Comment: Campu s: M Performed By: #### L 600.25364 ####[facility] KXBMGQCKSO0739 [place], [place] [address]Lf# [phone] UA BILIRUBIN Negative Normal NEGATIVE [facility] Comment on above: Order Comment: Campu s: M Performed By: #### L 600.77835 ####[facility] BVUABEMCGV[address] [place] [address]Ln# [phone] UA BLOOD SMALL Normal NEGATIVE [facility] Comment on above: Order Comment: Campu s: M Performed By: #### L 600.17277 ####[facility] [address]VIHGIWV[address] [place] [address]Jg# [phone] UA KETONE 80 Normal NEGATIVE [facility] Comment on above: Order Comment: Campu s: M Performed By: #### L 600.02656 ####[facility] IOIUNFYGJO[address] [place] [address]Vk# [phone] UA LK ESTERASE N Normal NEGATIVE [facility] Comment on above: Order Comment: Campu s: M Performed By: #### L 600.49733 ####[facility] NXEVTEFONR[address] [place] [address]Zy# [phone] UA NITRITE Negative Normal NEGATIVE [facility] Comment on above: Order Comment: Campu s: M Performed By: #### L 600.50390 ####[facility] VBXOIOKENB[address] [place] [address]Yg# [phone] UA PH 6.0 Normal 5-6 [facility] Comment on above: Order Comment: Campu s: M Performed By: #### L 600.96490 ####[facility] SPJCMAHEGK[address] [place] [address]Oi# [phone] UA PROTEIN 30 Normal NEGATIVE [facility] Comment on above: Order Comment: Campu s: M Performed By: #### L 600.28986 ####[facility] AZETRZALSZ[address] [place] [address]Sw# [phone] UA RBC NONE Low 0-3 [facility] Comment on above: Order Comment: Campu s: M Performed By: #### L 600.33125 ####[facility] KHLWFZWVPW7894 [place], [place] [address]Mr# [phone] UA SPEC GRAV 1.023 Normal 1.005-1.030 [facility] Comment on above: Order Comment: Campu s: M Performed By: #### L 600.42257 ####[facility] VTKQQPNRPN[address] [place] [address]Ow# [phone] UA WBC 1 WBC/HPF Normal 0-5 [facility] Comment on above: Order Comment: Campu s: M Performed By: #### L 600.82113 ####[facility] UWROXYATZX[address] [place] [address]Je# [phone] VBG PHon 10-22-2021 VBG PH 7.49 MMHG High 7.31-7.41 [facility] Comment on above: Order Comment: Campu s: M Performed By: #### L 100.61727 ####[facility] NQAYLDJQBK[address] [place] [address]Mv# [phone] BLOOD CULTUREon 06-09-2021 Bacteria identified Cx Nom (Bld) NO GROWTH AFTER 5 DAYS Normal [facility] Comment on above: Order Comment: Campu s: M Performed By: #### M 050.69289 ####[facility] TUWOOIDIRB[address] [place] [address]Sa# [phone] Bacteria identified Cx Nom (Bld) NO GROWTH AFTER 5 DAYS [facility] Comment on above: Order Comment: Campu s: M Performed By: #### M 050.19866 ####[facility] [address]YZQRYN[address] [place] [address]Ge# [phone] GLUCOSE METERon 06-07-2021 Glucose [Mass/Vol] 44 mg/dL Critically low 70-115 [facility] 06-05-2021 Bacteria identified Cx Nom (Bld) NO GROWTH AFTER 5 DAYS Normal [facility] Comment on above: Order Comment: Zach s: M Performed By: #### M 050.47591 ####[facility] HXPPSSEOAE3081 [place], [place] [address]Fl# [phone] DISCH.SUMon 06-05-2021 DISCH.SUM Normal [facility] GLUCOSE METERon 06-05-2021 Glucose [Mass/Vol] 104 mg/dL Normal 70-115 [facility] Glucose [Mass/Vol] 83 mg/dL Normal 70-115 [facility] Glucose [Mass/Vol] 105 mg/dL Normal 70-115 [facility] Glucose [Mass/Vol] 177 mg/dL High 70-115 [facility] Glucose [Mass/Vol] 61 mg/dL Low 70-115 [facility] PR[facility].ENDOon 06-05-2021 PROG.ENDO Normal [facility] Progress Note-Endocrinology Normal [facility] BCID PCRon 06-04-2021 BC ACINETOBACTE Not detected Normal NOT DETECTD [facility] Comment on above: Performed By: #### L 770. ####[facility] BGEFRMMUQB6912 [place], [place] [address]Ba# [phone] BC BETA STREP A Not detected Normal NOT DETECTD [facility] Comment on above: Performed By: #### L 770. ####[facility] CUQFVYMTMZ3075 [place], [place] [address]Jr# [phone] BC BETA STREP B Not detected Normal NOT DETECTD [facility] Comment on above: Performed By: #### L 770.03138 ####[facility] DSRMRAXLAD3851 [place], [place] [address]Vv# [phone] BC C ALBICANS Not detected Normal NOT DETECTD [facility] Comment on above: Performed By: #### L 770.73833 ####[facility] CWKCUUJJSD5338 [place], [place] [address]Hh# [phone] BC C GLABRATA Not detected Normal NOT DETECTD [facility] Comment on above: Performed By: #### L 770.31582 ####[facility] RUZLQFZZRQ5894 [place], [place] [address]Kr# [phone] BC C KRUSEI Not detected Normal NOT DETECTD [facility] Comment on above: Performed By: #### L 770.41369 ####[facility] TGNFGDADHP1007 [place], [place] [address]Sb# [phone] BC C PARAPSILOS Not detected Normal NOT DETECTD [facility] Comment on above: Performed By: #### L 770.76797 ####[facility] ELSLKHYHXJ6216 [place], [place] [address]Cr# [phone] BC C TROPICALIS Not detected Normal NOT DETECTD [facility] Comment on above: Performed By: #### L 770. ####[facility] KOGBABMDDM0359 [place], [place] [address]Nl# [phone] BC E COLI Not detected Normal NOT DETECTD [facility] Comment on above: Performed By: #### L 770. ####[facility] GUGWZBYZBN7247 [place], [place] [address]Ae# [phone] BC ENTER CLOACA Not detected Normal NOT DETECTD [facility] Comment on above: Performed By: #### L 770.51732 ####[facility] UTLAYSWISI9542 [place], [place] [address]Yx# [phone] BC ENTEROCOCCUS Not detected Normal NOT DETECTD [facility] Comment on above: Performed By: #### L 770.08379 ####[facility] XALDBYSWTV3066 [place], [place] [address]Cu# [phone] BC H.INFLUENZA Not detected Normal NOT DETECTD [facility] Comment on above: Performed By: #### L 770.36893 ####[facility] WMXTKSKPLD7506 [place], [place] [address]Wv# [phone] BC KLEB OXYTOCA Not detected Normal NOT DETECTD [facility] Comment on above: Performed By: #### L 770.54000 ####[facility] HBDTWYUUFE8105 [place], [place] [address]Ye# [phone] BC KLEB PNEUMO Not detected Normal NOT DETECTD [facility] Comment on above: Performed By: #### L 770.12672 ####[facility] LKHONMNZUL7148 [place], [place] [address]Dk# [phone] BC KPC Not detected Normal NOT DETECTD [facility] Comment on above: Performed By: #### L 770.06428 ####[facility] [address]ZULAEG[address] [place] [address]Pr# [phone] BC LISTERIA Not detected Normal NOT DETECTD [facility] Comment on above: Performed By: #### L 770.17831 ####[facility] [id number] [place] [address]Vp# [phone] BC MEC A Not detected Normal NOT DETECTD [facility] Comment on above: Performed By: #### L 770.32631 ####[facility] QBKPECEWME[address] [place] [address]Rq# [phone] BC N MENINGITID Not detected Normal NOT DETECTD [facility] Comment on above: Performed By: #### L 770.97290 ####[facility] [address]WICEVNL[address] [place] [address]Ok# [phone] BC PROTEUS SP. Not detected Normal NOT DETECTD [facility] Comment on above: Performed By: #### L 770.68714 ####[facility] MCBTCKZWED[address] [place] [address]Ba# [phone] BC PSEUDO AERUG Not detected Normal NOT DETECTD [facility] Comment on above: Performed By: #### L 770.45244 ####[facility] YAWUVVLASK[address] [place] [address]Ph# [phone] BC SERRATIA MAR Not detected Normal NOT DETECTD [facility] Comment on above: Performed By: #### L 770.01137 ####[facility] LXOXLAWYGB9703 [place], [place] [address]Su# [phone] BC STAPH AUREUS Not detected Normal NOT DETECTD [facility] Comment on above: Performed By: #### L 770.77420 ####[facility] ESGCKLOHBA7268 [place], [place] [address]Da# [phone] BC STAPH SPE. Not detected Normal NOT DETECTD [facility] Comment on above: Performed By: #### L 770.93399 ####[facility] YEZRJOOKUB4527 [place], [place] [address]Qa# [phone] BC STREP PNEUMO Not detected Normal NOT DETECTD [facility] Comment on above: Performed By: #### L 770.32618 ####[facility] TVPUJTLQLZ3373 [place], [place] [address]Ou# [phone] BC STREPTOCOCCU Not detected Normal NOT DETECTD [facility] Comment on above: Performed By: #### L 770.19222 ####[facility] OOGSWWELEF9811 [place], [place] [address]Jt# [phone] BC VAN A/B Not detected Normal NOT DETECTD [facility] Comment on above: Performed By: #### L 770.11824 ####[facility] IWDKELBSDS5737 [place], [place] [address]Ch# [phone] ENTEROBACEAE SP Not detected Normal NOT DETECTD [facility] Comment on above: Performed By: #### L 770.17716 ####[facility] SKMHDPCNBD2863 [place], [place] [address]Hh# [phone] BLOOD CULTUREon 06-04-2021 Bacteria identified Cx Nom (Bld) INITIAL POSITIVE BLOOD CULTURE RESULTS CALLED TO MICHELLE RN/8M AND READ BACK BY AT 201206/02/21 BY NANI CARLISLE ORGANISM 1: MICROCOCCUS SP./RELATED GENERA ID TO FOLLOW NOT VIABLE FOR SENSITIVITY Normal [facility] Comment on above: Order Comment: Campu s: M Performed By: #### M 050.23965 ####[facility] ARWVHDKEDW5044 [place], [place] [address]Ky# [phone] GLUCOSE METERon 06-04-2021 Glucose [Mass/Vol] 161 mg/dL High 70-115 [facility] Glucose [Mass/Vol] 79 mg/dL Normal 70-115 [facility] Glucose [Mass/Vol] 236 mg/dL High 70-115 [facility] Glucose [Mass/Vol] 273 mg/dL High 70-115 [facility] Glucose [Mass/Vol] 221 mg/dL High 70-115 [facility] Glucose [Mass/Vol] 305 mg/dL High 70-115 [facility] PROG IMSon 06-04-2021 PROG IMS Normal [facility] Progress Note-Hospitalist Normal [facility] PROG.ENDOon 06-04-2021 PROG.ENDO Normal [facility] Progress Note-Endocrinology Normal [facility] BMPon 06-03-2021 Anion gap [Moles/Vol] 9 mmol/L Normal 5-16 [facility] Comment on above: Order Comment: Campu s: MMinimal Draw: Y Performed By: #### L 500.97351, L500.82961, L500.93275 ####[facility] LHYFGIMDAW4912 [place], [place] [address]Ni# [phone] Calcium [Mass/Vol] 8.5 mg/dL Normal 8.5-10.5 [facility] Comment on above: Order Comment: Campu s: MMinimal Draw: Y Result Comment: NOTE NEW NORMAL RANGE DUE TO REAGENT CHANGE Performed By: #### L 500.36758, L500.68221, L500.93188 ####[facility] BHFIXHOJSY5796 [place], [place] [address]Au# [phone] Chloride [Moles/Vol] 109 mmol/L High 98-107 [facility] Comment on above: Order Comment: Campu s: MMinimal Draw: Y Performed By: #### L 500.08293, L500.26985, L500.48044 ####[facility] JWVETGFFNA4468 [place], [place] [address]Ah# [phone] CO2 [Moles/Vol] 23.0 mmol/L Normal 21-32 [facility] Comment on above: Order Comment: Campu s: MMinimal Draw: Y Performed By: #### L 500.30636, L500.59193, L500.04093 ####[facility] DJFFMAZAIG5989 [place], [place] [address]Qm# [phone] Creatinine [Mass/Vol] 0.70 mg/dL Normal 0.510-0.950 [facility] Comment on above: Order Comment: Campu s: MMinimal Draw: Y Result Comment: Cleopatra ents receiving either N-Acetylcysteine (NAC) orMetamizole prior to venipuncture, may have falsely depressedresults. Performed By: #### L 500.78931, L500.25206, L500.09418 ####[facility] YVSOUMLPAM3639 [place], [place] [address]Xb# [phone] Glucose [Mass/Vol] 303 mg/dL High 70-100 [facility] Comment on above: Order Comment: Campu s: MMinimal Draw: Y Result Comment: 70-1 00- Normal Fasting; 100-125 Impaired Fasting; greaterthan 126 on more than one result- Diabetes. ADA guidelines.Results may be falsely elevated after the administration ofSulfapyridine.Results may be falsely depressed after the administration ofSulfasalazine. Performed By: #### L 500.60107, L500.85566, L500.87995 ####[facility] OSADAVSSVT5262 [place], [place] [address]Gz# [phone] Potassium [Moles/Vol] 4.4 mmol/L Normal 3.5-5.1 [facility] Comment on above: Order Comment: Campu s: MMinimal Draw: Y Result Comment: Slig ht Hemolysis, Result may be affected. Performed By: #### L 500.97029, L500.86032, L500.49489 ####[facility] TSOCOPZDYL6598 [place], [place] [address]Zo# [phone] Sodium [Moles/Vol] 141 mmol/L Normal 136-145 [facility] Comment on above: Order Comment: Campu s: MMinimal Draw: Y Performed By: #### L 500.21179, L500.53670, L500.79582 ####[facility] JUIEGPQFTW1164 [place], [place] [address]Za# [phone] Urea nitrogen [Mass/Vol] 16 mg/dL Normal 7-26 [facility] Comment on above: Order Comment: Campu s: MMinimal Draw: Y Performed By: #### L 500.90986, L500.19250, L500.22270 ####[facility] PUFNCRBCNE4694 [place], [place] [address]Eu# [phone] Urea nitrogen/Creatinine [Mass ratio] 23 mg/mg Normal 15-24 [facility] Comment on above: Order Comment: Campu s: MMinimal Draw: Y Performed By: #### L 500.95778, L500.78431, L500.50971 ####[facility] YTDJMFEJGZ3215 [place], [place] [address]On# [phone] CBC W/DIFFon 06-03-2021 BASO ABS 0.00 K/CU MM Normal 0-0.2 [facility] Comment on above: Order Comment: Campu s: MMinimal Draw: Y Performed By: #### L 200.45156 ####[facility] IMYGJONQLE[address] [place] [address]Vp# [phone] Basophils/100 WBC (Bld) 0.2 % Normal 0-2 [facility] Comment on above: Order Comment: Campu s: MMinimal Draw: Y Performed By: #### L 200.14259 ####[facility] OVGBHXISQM[address] [place] [address]Pj# [phone] EOS ABS 0.00 K/CU MM Normal 0-0.5 [facility] Comment on above: Order Comment: Campu s: MMinimal Draw: Y Performed By: #### L 200.03961 ####[facility] WNIVDETXOA[address] [place] [address]Sw# [phone] Eosinophils/100 WBC (Bld) 0.3 % Normal 0-5 [facility] Comment on above: Order Comment: Campu s: MMinimal Draw: Y Performed By: #### L 200.18751 ####[facility] QRDSRXXBOI[address] [place] [address]Ps# [phone] Erythrocyte distribution width (RBC) [Ratio] 15.1 % High 11-14.5 [facility] Comment on above: Order Comment: Campu s: MMinimal Draw: Y Performed By: #### L 200.94613 ####[place] [address]Ph# [phone] Hematocrit (Bld) [Volume fraction] 29.3 % Low 35.0-47.0 [facility] Comment on above: Order Comment: Campu s: MMinimal Draw: Y Performed By: #### L 200.97320 ####[facility] WCNHEPEJBD[address] [place], [place] [address]Ph# [phone] Hemoglobin (Bld) [Mass/Vol] 9.4 g/dL Low 11.5-15.5 [facility] Comment on above: Order Comment: Campu s: MMinimal Draw: Y Result Comment: Repe ated and verified. Performed By: #### L 200.14846 ####[facility] PNEEXNDNJR[address] [place], [place] [address]Ph# [phone] IMMATR GRAN ABS 0.10 K/CU MM Normal Less than 2 [facility] Comment on above: Order Comment: Campu s: MMinimal Draw: Y Performed By: #### L 200.22215 ####[facility] [id number] [place], [place] [address]Ph# [phone] IMMATURE GRAN % 0.8 % Normal Less than 2 [facility] Comment on above: Order Comment: Campu s: MMinimal Draw: Y Performed By: #### L 200.04563 ####[facility] EWXKZUZZBU17[address] [place], [place] [address]Ph# [phone] LYMPH ABS 2.90 K/CU MM Normal 0.9-4.4 [facility] Comment on above: Order Comment: Campu s: MMinimal Draw: Y Performed By: #### L 200.35880 ####[facility] RAVWRWSIVK[address] [place], [place] [address]Ph# [phone] Lymphocytes/100 WBC (Bld) 25.7 % Normal 20-40 [facility] Comment on above: Order Comment: Campu s: MMinimal Draw: Y Performed By: #### L 200.97617 ####[place] [address]Ph# [phone] MCHC (RBC) [Mass/Vol] 32.1 g/dL Normal 32.0-36.0 [facility] Comment on above: Order Comment: Campu s: MMinimal Draw: Y Performed By: #### L 200.14678 ####[place] [address]Ph# [phone] MCV (RBC) [Entitic vol] 87.5 fL Normal 80.0-99.0 [facility] Comment on above: Order Comment: Campu s: MMinimal Draw: Y Performed By: #### L 200.31283 ####[place] [address]Ph# [phone] MONO ABS 0.50 K/CU MM Normal 0.1-1.1 [facility] Comment on above: Order Comment: Campu s: MMinimal Draw: Y Performed By: #### L [id number] ####[facility] [id number] [place], [place] [id number]# [phone] Monocytes/100 WBC (Bld) 4.3 % Normal 2-10 [facility] Comment on above: Order Comment: Campu s: MMinimal Draw: Y Performed By: #### L [id number] ####[facility] [id number] [place], [place] [address]Ph# [phone] NEUTROPHIL ABS 7.70 K/CU MM Normal 2.0-8.3 [facility] Comment on above: Order Comment: Campu s: MMinimal Draw: Y Performed By: #### L [id number] ####[facility] [id number] [place], [place] [address]Zl# [phone] Neutrophils/100 WBC (Bld) 68.7 % Normal 45-75 [facility] Comment on above: Order Comment: Campu s: MMinimal Draw: Y Performed By: #### L 200.31807 ####[facility] ITVMXZJIAA7175 [place], [place] [address]Ax# [phone] Nucleated RBC/100 WBC (Bld) [Ratio] 0.0 % Normal Less than 1 [facility] Comment on above: Order Comment: Campu s: MMinimal Draw: Y Performed By: #### L 200.40427 ####[facility] [address]MQPNZBPHG[address] [place] [address]Gg# [phone] Platelet mean volume (Bld) [Entitic vol] 11.6 fL Normal 9.4-12.4 [facility] Comment on above: Order Comment: Campu s: MMinimal Draw: Y Performed By: #### L 200.70685 ####[facility] [id number] [place] [address]Ax# [phone] PLT 166 K/CU MM Normal 150-450 [facility] Comment on above: Order Comment: Campu s: MMinimal Draw: Y Performed By: #### L 200.20661 ####[facility] [id number] [place], [place] [address]Ww# [phone] RBC 3.35 M/CU MM Low 3.90-5.30 [facility] Comment on above: Order Comment: Campu s: MMinimal Draw: Y Performed By: #### L 200.69243 ####[facility] NLBCPYTVZX[address] [place] [address]Mv# [phone] WBC 11.3 K/CUMM High 4.5-11.0 [facility] Comment on above: Order Comment: Campu s: MMinimal Draw: Y Performed By: #### L 200.91838 ####[facility] YPZULZNTGI1859 [place], [place] [address]Yz# [phone] GFR ESTon 06-03-2021 IF AMER Greater than 60 [facility] Comment on above: Order Comment: Campu s: MMinimal Draw: Y Performed By: #### L 500.58091, L500.14384, L500.38612 ####[facility] KNYKSFVRQT1188 [place], [place] [address]Km# [phone] IF non-AFR AMER Greater than 60 [facility] Comment on above: Order Comment: Campu s: MMinimal Draw: Y Performed By: #### L 500.09839, L500.03306, L500.93437 ####[facility] XSNBBYNPPP2787 [place], [place] [address]Wr# [phone] GLUCOSE METERon 06-03-2021 Glucose [Mass/Vol] 227 mg/dL High 70-115 [facility] Glucose [Mass/Vol] 182 mg/dL High 70-115 [facility] Glucose [Mass/Vol] 299 mg/dL High 70-115 [facility] PROG IMSon 06-03-2021 PROG IMS Normal [facility] Progress Note-Hospitalist Normal [facility] PROG.ENDOon 06-03-2021 PROG.ENDO Normal [facility] Progress Note-Endocrinology Normal [facility] TSHon 06-03-2021 TSH 6.118 UIU/ML High 0.358-3.740 [facility] Comment on above: Order Comment: Campu s: MMinimal Draw: Y Result Comment: 3rd generation ultra sensitive TSH Performed By: #### L 500.70438, L500.00453, L500.57439 ####[facility] VIYIIZHOQM1692 [place], [place] [address]Ma# [phone] CONS.ENDOon 06-02-2021 CONS.ENDO [facility]-ENDOCRINO LOGY Normal [facility] GLUCOSE METERon 06-02-2021 Glucose [Mass/Vol] 372 mg/dL High 70-115 [facility] Glucose [Mass/Vol] 255 mg/dL High 70-115 [facility] Glucose [Mass/Vol] 210 mg/dL High 70-115 [facility] Glucose [Mass/Vol] 205 mg/dL High 70-115 [facility] PROG IMSon 06-02-2021 PROG IMS Normal [facility] Progress Note-Hospitalist Normal [facility] BMPon 06-01-2021 Anion gap [Moles/Vol] 23 mmol/L High 5-16 [facility] Comment on above: Order Comment: Campu s: M Performed By: #### L 500.79276, L500.47142 ####[facility] FFLRFLTXWB4759 [place], [place] [address]Ik# [phone] Calcium [Mass/Vol] 9.4 mg/dL Normal 8.5-10.5 [facility] Comment on above: Order Comment: Campu s: M Result Comment: NOTE NEW NORMAL RANGE DUE TO REAGENT CHANGE Performed By: #### L 500.70342, L500.30689 ####[facility] PEXPWMWDXZ9261 [place], [place] [address]Us# [phone] Chloride [Moles/Vol] 103 mmol/L Normal 98-107 [facility] Comment on above: Order Comment: Campu s: M Performed By: #### L 500.72671, L500.10399 ####[facility] QLPFQZXSES8640 [place], [place] [address]Sz# [phone] CO2 [Moles/Vol] 11.0 mmol/L Low 21-32 [facility] Comment on above: Order Comment: Campu s: M Result Comment: Delt a check reviewed Performed By: #### L 500.31529, L500.68652 ####[facility] OTWIDEAKUF9166 [place], [place] [address]Ed# [phone] Creatinine [Mass/Vol] 0.71 mg/dL Normal 0.510-0.950 [facility] [place] Comment on above: Order Comment: Zach s: M Result Comment: Cleopatra ents receiving either N-Acetylcysteine (NAC) orMetamizole prior to venipuncture, may have falsely depressedresults. Performed By: #### L 500.57673, L500.06547 ####[facility] NOZAZSHRWJ9694 [place], [place] [address]Wv# [phone] Glucose [Mass/Vol] 447 mg/dL High 70-100 [facility] Comment on above: Order Comment: Zach s: M Result Comment: 70-1 00- Normal Fasting; 100-125 Impaired Fasting; greaterthan 126 on more than one result- Diabetes. ADA guidelines.Results may be falsely elevated after the administration ofSulfapyridine.Results may be falsely depressed after the administration ofSulfasalazine. Performed By: #### L 500.81980, L500.63122 ####[facility] RXKBUSLFLX7436 [place], [place] [address]Xn# [phone] Potassium [Moles/Vol] 5.2 mmol/L High 3.5-5.1 [facility] Comment on above: Order Comment: Zach s: M Result Comment: Slig ht Hemolysis, Result may be affected. Performed By: #### L 500.91680, L500.07337 ####[facility] GSCRAYURTP3566 [place], [place] [address]Ed# [phone] Sodium [Moles/Vol] 137 mmol/L Normal 136-145 [facility] Comment on above: Order Comment: Zach s: M Performed By: #### L 500.35605, L500.02841 ####[facility] ZDDODTZBNC5440 [place], [place] [address]Yk# [phone] Urea nitrogen [Mass/Vol] 20 mg/dL Normal 7-26 [facility] Comment on above: Order Comment: Zach s: M Result Comment: Slig ht Hemolysis, Result may be affected. Performed By: #### L 500.67771, L500.70868 ####[facility] YPSAXGUXQZ0751 [place], [place] [address]Cg# [phone] Urea nitrogen/Creatinine [Mass ratio] 28 mg/mg High 15-24 [facility] Comment on above: Order Comment: Campu s: M Performed By: #### L 500.33583, L500.05493 ####[facility] TUUBDDCHLL8901 [place], [place] [address]Kn# [phone] Stacie 06-01-2021 EMERGENCY PHYSICIAN REPORT This is a preliminary report only, as the practitioner review and authentication has not occurred. Normal [facility] GFR ESTon 06-01-2021 IF AMER Greater than 60 [facility] Comment on above: Order Comment: Campu s: M Performed By: #### L 500.35242, L500.12500 ####[facility] QCWBVJEXOW6777 [place], [place] [address]Fs# [phone] IF non-AFR AMER Greater than 60 [facility] Comment on above: Order Comment: Campu s: M Performed By: #### L 500.05214, L500.55824 ####[facility] WFCTIXGPUV4946 [place], [place] [address]Co# [phone] GLUCOSE METERon 06-01-2021 Glucose [Mass/Vol] 384 mg/dL High 70-115 [facility] Glucose [Mass/Vol] 322 mg/dL High 70-115 [facility] Glucose [Mass/Vol] 550 mg/dL Critically high 70-115 [facility] GLUCOSE METER > 600 Critically high 70-115 [facility] Glucose [Mass/Vol] 450 mg/dL High 70-115 [facility] HP.IMS.ADMon 06-01-2021 Admission-H&P Normal [facility] HP.IMS.ADM Normal [facility] LACTIC ACIDon 06-01-2021 Lactate [Moles/Vol] 3.82 mmol/L High 0.40-2.00 [facility] Comment on above: Performed By: #### L 550.75235 ####[facility] GEKPZZUOBQ9980 [place], [place] [address]Hk# [phone] PROCAL Aon 06-01-2021 PROCAL A 2.89 NG/ML High 0-0.50 [facility] Comment on above: Order Comment: Zach s: M Result Comment: PCT Concentration InterpretationPCT <=0.1 NG/ML:Normal range for healthy adultsPCT >0.1 NG/ML and <0.5 NG/ML:Systemic infection (sepsis) is possible and may requireantibiotic treatment, but other conditions are known toelevate PCT as well.PCT >0.5 NG/ML:Should ne considered at risk for developing severe sepsisor septic shock.PCT >2.0 NG/ML:Important systemic inflammatory response. Almost exclusivelyindicates episode of severe bacterial sepsis or septicshock.This assy uses differnt methodologies and produces resultssignificantly lower than the Vidas. It is recommended toevaluate patients for sepsis based on results obtained fromthe [employer] platform vs the [employer] Vidas platform(previous).NOTE NEW NORMAL RANGE DUE TO REAGENT CHANGE Performed By: #### L 550.43648 ####[facility] GXWSBSMRJT8523 [place], [place] [address]Ao# [phone] PROG IMSon 06-01-2021 PROG IMS Normal [facility] Progress Note-Hospitalist Normal [facility] UR DRUG ABUSEon 06-01-2021 UR AMPH Negative Normal Zsbibl=7119 [facility] Comment on above: Performed By: #### L 600.70295 ####[facility] OLGQTLZNQB5147 [place], [place] [address]Ez# [phone] UR JARON Negative Normal Wqbiug=545 [facility] Comment on above: Performed By: #### L 600.43902 ####[facility] THAQGPFLNN1088 [place], [place] [address]Ia# [phone] UR TAMRA Negative Normal Fpzlcx=131 [facility] Comment on above: Performed By: #### L 600.87837 ####[facility] CFAYLFUQER4840 [place], [place] [address]Hh# [phone] UR MONTY/THC Positive Normal Cutoff=50 [facility] Comment on above: Performed By: #### L 600.70114 ####[facility] KXIBTWUCIV6146 [place], [place] [address]Mb# [phone] UR ALISHA Negative Normal Afgryk=350 [facility] Comment on above: Performed By: #### L 600.55539 ####[facility] [address]ZONYHRHX[address] [place] [address]Nj# [phone] UR OPIAT Positive Normal Nfzfbn=333 [facility] Comment on above: Performed By: #### L 600.75954 ####[address] [address]Po# [phone] UR PCP Negative Normal Cutoff=25 [facility] Comment on above: Performed By: #### L 600.15123 ####[address] [address]Ho# [phone] DRAB COMMENT Normal [facility] Comment on above: Result Comment: [employer] results are qualitative, providing apreliminary analytical result. A positive result for anassay should be confirmed by another nonimmunological,reference method. A negative result indicates that theassay material is either not present, or present at levelsbelow the cutoff threshold for the analytical method range(AMR) validation. Performed By: #### L 600.09085 ####[facility] TFUVQXBKVN[address] [place] [address]Tl# [phone] ABGPon 05-31-2021 ABG BE -8.6 MML/L Low -2.0-2.0 [facility] Comment on above: Order Comment: Zach Ricks Performed By: #### L 100.32694 ####[facility] [address]YUOIGQBH[address] [place] [address]Oz# [phone] ABG COHBA 0.4 % Normal 0-10 [facility] Comment on above: Order Comment: Campu s: M Performed By: #### L 100.05815 ####[facility] YQNCIRQOWC3581 [place], [place] [address]Qu# [phone] ABG MET 0.3 % Low 0.4-1.5 [facility] Comment on above: Order Comment: Campu s: M Performed By: #### L 100.92286 ####[facility] FOGCPQUBAO5983 [place], [place] [address]Ia# [phone] ABG O2 CAPACITY 17.9 mL/dL Normal [facility] Comment on above: Order Comment: Campu s: M Performed By: #### L 100.49965 ####[facility] NZUMEYZKAC1590 [place], [place] [address]Qp# [phone] ABG O2 CONTENT 17.2 mL/dL Normal 15.7-21.6 [facility] Comment on above: Order Comment: Campu s: M Performed By: #### L 100.28541 ####[facility] ABPQYRNSPT4986 [place], [place] [address]Mo# [phone] ABG O2HB SAT 93.9 % Normal 90-100 [facility] Comment on above: Order Comment: Campu s: M Performed By: #### L 100.25573 ####[facility] GYTVSKZNRH9512 [place], [place] [address]Uv# [phone] ABG PCO2 34.2 MMHG Low 35-45 [facility] Comment on above: Order Comment: Campu s: M Performed By: #### L 100.74055 ####[facility] DFIANSMTZR1951 [place], [place] [address]Rx# [phone] ABG PH 7.31 Low 7.35-7.45 [facility] Comment on above: Order Comment: Campu s: M Performed By: #### L 100.55974 ####[facility] NGRAHTSUDC1625 [place], [place] [address]Dt# [phone] ABG PO2 85.7 MMHG Normal 80-100 [facility] Comment on above: Order Comment: Campu s: M Performed By: #### L 100.62383 ####[facility] OMSKGEHUVE7395 [place], [place] [address]Fz# [phone] ABG REDUCED HGB 5.4 % High 0-5 [facility] Comment on above: Order Comment: Campu s: M Performed By: #### L 100.61577 ####[facility] BYPVRDCYBL[address] [place] [address]Xp# [phone] GEM TEST Positive Normal [facility] Comment on above: Order Comment: Campu s: M Performed By: #### L 100.65339 ####[facility] [address]KGWNJVEJ[address] [place] [address]Qs# [phone] Body temperature 98.6 [degF] Normal [facility] Comment on above: Order Comment: Campu s: M Performed By: #### L 100.79937 ####[facility] NDXFKEHRKY3577[address] [place] [address]Iq# [phone] EQUIPMENT ROOM AIR Normal [facility] Comment on above: Order Comment: Campu s: M Performed By: #### L 100.68029 ####[facility] VLUWLEUOFM[address] [place] [address]La# [phone] FIO2 21 % Normal [facility] Comment on above: Order Comment: Campu s: M Performed By: #### L 100.20463 ####[facility] RCYKLNEJOS97[address] [place] [address]Gs# [phone] HCO3 (Bld) [Moles/Vol] 16.8 mmol/L Low 22-26 M [facility] Comment on above: Order Comment: Campu s: M Performed By: #### L 100.52569 ####[facility] PHREOJRENX3899 [place], [place] [address]Mc# [phone] Hemoglobin (Bld) [Mass/Vol] 13.0 g/dL Normal 10-16 [facility] Comment on above: Order Comment: Campu s: M Performed By: #### L 100.87265 ####[facility] KVVXDFQVPY[address] [place] [address]Zm# [phone] SAMPLE SITE L RADIAL Normal [facility] Comment on above: Order Comment: Campu s: M Performed By: #### L .16804 ####[facility] [address]ICBLZYNUH[address] [place] [address]Aj# [phone] SAMPLE TYPE ARTERIAL Normal [facility] Comment on above: Order Comment: Campu s: M Performed By: #### L .04660 ####[facility] UGGFLZEQEB[address] [place] [address]Fl# [phone] ABGPEGLAon 05-31-2021 ABG BE -10.1 MML/L Low -2.0-2.0 [facility] Comment on above: Order Comment: Campu s: M Performed By: #### L .98811 ####[facility] ONYLZIBVRF[address] [place] [address]Kb# [phone] ABG COHBA 0.4 % Normal 0-10 [facility] Comment on above: Order Comment: Campu s: M Performed By: #### L 100.36756 ####[facility] QSQYXQWGQI1793 [place], [place] [address]Rq# [phone] ABG GLU 317.0 MG/DL High 60-80 [facility] Comment on above: Order Comment: Campu s: M Performed By: #### L 100.12195 ####[facility] QMBVVICFZQ[address] [place] [address]Ur# [phone] ABG MET 0.3 % Low 0.4-1.5 [facility] Comment on above: Order Comment: Campu s: M Performed By: #### L .05708 ####[facility] IPKRSHZIFC2799 [place], [place] [address]Br# [phone] ABG O2 CAPACITY 15.6 mL/dL Normal [facility] Comment on above: Order Comment: Campu s: M Performed By: #### L 100.64921 ####[facility] XYDPIYCKYR1889 [place], [place] [address]Co# [phone] ABG O2 CONTENT 11.1 mL/dL Low 15.7-21.6 [facility] Comment on above: Order Comment: Campu s: M Performed By: #### L 100.29041 ####[facility] UBYWLHMIAM2154 [place], [place] [address]Li# [phone] ABG O2HB SAT 69.7 % Critically low 90-100 [facility] Comment on above: Order Comment: Benjiu s: M Performed By: #### L 100.34340 ####[facility] [place], [place] [address]Gc# [phone] ABG PCO2 19.0 MMHG Critically low 35-45 [facility] Comment on above: Order Comment: Benjiu s: M Result Comment: CRIT ICAL VALUE(S) VERIFIED AND HAND DELIVERED TO AND READBACK BY DR CORTES AT 1829 05/31/21 BY ADAM CHOE Performed By: #### L 100.95842 ####[place] [place] [place], [place] [address]Fy# [phone] ABG PH 7.43 Normal 7.35-7.45 [facility] Comment on above: Order Comment: Benjiu s: M Performed By: #### L 100.42437 ####[facility] TVRUWGZHTT0958 [place], [place] [address]Lu# [phone] ABG PO2 37.4 MMHG Critically low 80-100 [facility] Comment on above: Order Comment: Benjiu s: M Performed By: #### L 100.32292 ####[facility] QXVPPEFDGE5521 [place], [place] [address]Pt# [phone] ABG REDUCED HGB 29.6 % Critically high 0-5 [facility] Comment on above: Order Comment: Benjiu s: M Performed By: #### L 100.64951 ####[facility] STVAVUKFKZ0287 [place], [place] [address]Ra# [phone] GEM TEST N/A Normal [facility] Comment on above: Order Comment: Campu s: M Performed By: #### L 100.41989 ####[facility] YPKUTXNEFS[address] [place] [address]Dz# [phone] Body temperature 98.6 [degF] Normal [facility] Comment on above: Order Comment: Campu s: M Performed By: #### L 100.43971 ####[address] [address]Sj# [phone] EQUIPMENT ROOM AIR Normal [facility] Comment on above: Order Comment: Campu s: M Performed By: #### L 100.79094 ####[address] [address]Pn# [phone] HCO3 (Bld) [Moles/Vol] 12.2 mmol/L Low 22-26 M [facility] Comment on above: Order Comment: Campu s: M Performed By: #### L 100.60264 ####[address] [address]Dj# [phone] Hemoglobin (Bld) [Mass/Vol] 11.3 g/dL Normal 10-16 [facility] Comment on above: Order Comment: Campu s: M Performed By: #### L 100.84539 ####[facility] WBRPCYCAHQ[address] [place] [address]Sz# [phone] IONIZED CA 0.95 MMOL/L Low 1.13-1.32 [facility] Comment on above: Order Comment: Campu s: M Performed By: #### L 100.06204 ####[facility] [address]ZIAOVHKG[address] [place] [address]Oa# [phone] LACTATE BLOOD 2.01 MMOL/L High 0.40-2.00 [facility] Comment on above: Order Comment: Campu s: M Performed By: #### L 100.29187 ####[facility] AVIQYOUZCN3103 [place], [place] [address]Zx# [phone] Potassium [Moles/Vol] 2.7 mmol/L Critically low 3.5-5.0 [facility] Comment on above: Order Comment: Campu s: M Performed By: #### L 100.62579 ####[facility] TPUFRCXHAK3665 [place], [place] [address]Ul# [phone] RESP. RATE 30 Normal [facility] Comment on above: Order Comment: Campu s: M Performed By: #### L 100.21192 ####[facility] [address]LTWRAAPRY[address] [place] [address]Dr# [phone] SAMPLE SITE R BRACHIAL Normal [facility] Comment on above: Order Comment: Campu s: M Performed By: #### L .57519 ####[facility] MVGYXXEJTX[address] [place] [address]Pi# [phone] SAMPLE TYPE ARTERIAL Normal [facility] Comment on above: Order Comment: Campu s: M Performed By: #### L 100.89320 ####[facility] NSCLQJGUDR[address] [place] [address]Lg# [phone] Sodium [Moles/Vol] 140 mmol/L Normal 136-148 [facility] Comment on above: Order Comment: Campu s: M Performed By: #### L 100.07660 ####[facility] UQJPQJPGTY[address] [place] [address]Sf# [phone] BMPon 05-31-2021 Anion gap [Moles/Vol] 16 mmol/L Normal 5-16 [facility] Comment on above: Order Comment: Campu s: M Performed By: #### L 500.11948, L500.01519, L500.42782, L500.14535 ####[facility] QOYLPCLGVY1540 [place], [place] [address]Tw# [phone] Calcium [Mass/Vol] 9.9 mg/dL Normal 8.5-10.5 [facility] Comment on above: Order Comment: Campu s: M Result Comment: NOTE NEW NORMAL RANGE DUE TO REAGENT CHANGE Performed By: #### L 500.15204, L500.72380, L500.00845, L500.95597 ####[facility] JFYUMBVOTV3321 [place], [place] [address]Pt# [phone] Chloride [Moles/Vol] 105 mmol/L Normal 98-107 [facility] Comment on above: Order Comment: Campu s: M Performed By: #### L 500.86825, L500.07182, L500.27274, L500.48069 ####[facility] XJBOSWOEQW3198 [place], [place] [address]Db# [phone] CO2 [Moles/Vol] 16.0 mmol/L Low 21-32 [facility] Comment on above: Order Comment: Campu s: M Performed By: #### L 500.24688, L500.21178, L500.54961, L500.89687 ####[facility] JQTIFBCCOL6542 [place], [place] [address]De# [phone] Creatinine [Mass/Vol] 0.63 mg/dL Normal 0.510-0.950 [facility] Comment on above: Order Comment: Campu s: M Result Comment: Cleopatra ents receiving either N-Acetylcysteine (NAC) orMetamizole prior to venipuncture, may have falsely depressedresults. Performed By: #### L 500.96137, L500.76731, L500.41096, L500.71578 ####[facility] PUMFFAGEYZ0803 [place], [place] [address]Qa# [phone] Glucose [Mass/Vol] 422 mg/dL High 70-100 [facility] Comment on above: Order Comment: Campu s: M Result Comment: 70-1 00- Normal Fasting; 100-125 Impaired Fasting; greaterthan 126 on more than one result- Diabetes. ADA guidelines.Results may be falsely elevated after the administration ofSulfapyridine.Results may be falsely depressed after the administration ofSulfasalazine. Performed By: #### L 500.60525, L500.21539, L500.06443, L500.21122 ####[facility] UFEECZOMGP4141 [place], [place] [address]Mz# [phone] Potassium [Moles/Vol] 4.4 mmol/L Normal 3.5-5.1 [facility] Comment on above: Order Comment: Campu s: M Result Comment: Slig ht Hemolysis, Result may be affected. Performed By: #### L 500.70919, L500.30166, L500.61120, L500.09243 ####[facility] SUJANVPUGN2209 [place], [place] [address]Fy# [phone] Sodium [Moles/Vol] 137 mmol/L Normal 136-145 [facility] Comment on above: Order Comment: Campu s: M Performed By: #### L 500.26058, L500.18773, L500.24760, L500.03479 ####[facility] TXGRUPPZAP1985 [place], [place] [address]Bh# [phone] Urea nitrogen [Mass/Vol] 17 mg/dL Normal 7-26 [facility] Comment on above: Order Comment: Campu s: M Performed By: #### L 500.83658, L500.86593, L500.67829, L500.86632 ####[facility] SHCHNPIEAQ8311 [place], [place] [address]Nh# [phone] Urea nitrogen/Creatinine [Mass ratio] 27 mg/mg High 15-24 [facility] Comment on above: Order Comment: Campu s: M Performed By: #### L 500.85177, L500.70936, L500.70435, L500.51489 ####[facility] DBDXMSHEVX0266 [place], [place] [address]Rz# [phone] CBC W/DIFFon 05-31-2021 BASO ABS 0.00 K/CU MM Normal 0-0.2 [facility] Comment on above: Order Comment: Campu s: M Performed By: #### L 200.13820 ####[facility] [id number] [place], [place] [address]Rr# [phone] Basophils/100 WBC (Bld) 0.2 % Normal 0-2 [facility] [place] Comment on above: Order Comment: Campu s: M Performed By: #### L 200.38212 ####[facility] [id number] [place] [address]La# [phone] EOS ABS 0.00 K/CU MM Normal 0-0.5 [facility] [place] Comment on above: Order Comment: Campu s: M Performed By: #### L 200.67054 ####[place] [id number]# [phone] Eosinophils/100 WBC (Bld) 0.0 % Normal 0-5 [facility] [place] Comment on above: Order Comment: Campu s: M Performed By: #### L 200.30814 ####[place] [address]Ph# [phone] Erythrocyte distribution width (RBC) [Ratio] 14.1 % Normal 11-14.5 [facility] Comment on above: Order Comment: Campu s: M Performed By: #### L 200.77118 ####[address] [address]Lb# [phone] Hematocrit (Bld) [Volume fraction] 39.5 % Normal 35.0-47.0 [facility] Comment on above: Order Comment: Campu s: M Performed By: #### L 200.81870 ####[facility] VIYXGOQAQC[address] [place], [place] [address]Ph# [phone] Hemoglobin (Bld) [Mass/Vol] 13.1 g/dL Normal 11.5-15.5 [facility] [place] Comment on above: Order Comment: Campu s: M Performed By: #### L 200.57554 ####[facility] R[address]OLNSQSX[address] [place], [place] [address]Ph# [phone] IMMATR GRAN ABS 0.20 K/CU MM Normal Less than 2 [facility] Comment on above: Order Comment: Campu s: M Performed By: #### L 200.81652 ####[facility] [id number] [place], [place] [address]Ph# [phone] IMMATURE GRAN % 0.8 % Normal Less than 2 [facility] Comment on above: Order Comment: Campu s: M Performed By: #### L 200.81223 ####[address]# [phone] LYMPH ABS 1.10 K/CU MM Normal 0.9-4.4 [facility] [place] Comment on above: Order Comment: Campu s: M Performed By: #### L 200.85993 ####[place] [address]Ph# [phone] Lymphocytes/100 WBC (Bld) 4.7 % Low 20-40 [facility] Comment on above: Order Comment: Campu s: M Performed By: #### L 200.42363 ####[place] [address]Ph# [phone] MCHC (RBC) [Mass/Vol] 33.2 g/dL Normal 32.0-36.0 [facility] [place] Comment on above: Order Comment: Campu s: M Performed By: #### L 200.00974 ####[place] [address]Ph# [phone] MCV (RBC) [Entitic vol] 84.9 fL Normal 80.0-99.0 [facility] [place] Comment on above: Order Comment: Campu s: M Performed By: #### L 200.16359 ####[facility] [id number] [place], [place] [address]Ph# [phone] MONO ABS 0.40 K/CU MM Normal 0.1-1.1 [facility] Comment on above: Order Comment: Campu s: M Performed By: #### L 200.77701 ####[facility] AEGMNUYTUW1207 [place], [place] [address]Mt# [phone] Monocytes/100 WBC (Bld) 1.8 % Low 2-10 [facility] Comment on above: Order Comment: Campu s: M Performed By: #### L 200.07487 ####[facility] [id number] [place] [address]Zd# [phone] NEUTROPHIL ABS 20.90 K/CU MM High 2.0-8.3 [facility] Comment on above: Order Comment: Campu s: M Performed By: #### L 200.25682 ####[facility] VHEFKCTCZC[address] [place], [place] [address]Ph# [phone] Neutrophils/100 WBC (Bld) 92.5 % High 45-75 [facility] Comment on above: Order Comment: Campu s: M Performed By: #### L 200.73028 ####[facility] BMTHPXMFNP[address] [place], [place] [address]Ph# [phone] Nucleated RBC/100 WBC (Bld) [Ratio] 0.0 % Normal Less than 1 [facility] Comment on above: Order Comment: Campu s: M Performed By: #### L 200.88216 ####[facility] [address]JZRW[address] [place] [address]Nn# [phone] Platelet mean volume (Bld) [Entitic vol] 12.4 fL Normal 9.4-12.4 [facility] Comment on above: Order Comment: Campu s: M Performed By: #### L 200.28482 ####[facility] [address]GUBQPZ[address] [place] [address]Gt# [phone] PLT 211 K/CU MM Normal 150-450 [facility] Comment on above: Order Comment: Campu s: M Performed By: #### L 200.60637 ####[facility] [id number] [place] [address]Ou# [phone] RBC 4.65 M/CU MM Normal 3.90-5.30 [facility] Comment on above: Order Comment: Campu s: M Performed By: #### L 200.60308 ####[facility] PBNXPTPLIS8124 [place], [place] [address]Mk# [phone] WBC 22.6 K/CUMM High 4.5-11.0 [facility] Comment on above: Order Comment: Campu s: M Performed By: #### L 200.14074 ####[facility] UXLPJNJUMW0226 [place], [place] [address]Qg# [phone] CT ABD/PEL W IV CONTRAST ONL Yon 05-31-2021 CT ABD/PEL W IV CONTRAST ONLY Normal [facility] GFR ESTon 05-31-2021 IF AMER Greater than 60 Normal [facility] Comment on above: Order Comment: Campu s: M Performed By: #### L 500.75484, L500.74968, L500.10431, L500.89560 ####[facility] XKCPUYFGAL9268 [place], [place] [address]Mt# [phone] IF non-AFR AMER Greater than 60 Normal [facility] Comment on above: Order Comment: Campu s: M Performed By: #### L 500.68612, L500.29104, L500.80708, L500.63426 ####[facility] WRRENINHBZ5490 [place], [place] [address]Fu# [phone] GLUCOSE METERon 05-31-2021 Glucose [Mass/Vol] 405 mg/dL High 70-115 [facility] LACTATE BLOODon 05-31-2021 LACTATE BLOOD 3.32 MMOL/L High 0.40-2.00 [facility] Comment on above: Order Comment: Campu s: M Performed By: #### L 550.61054 ####[facility] [id number] [place], [place] [address]Vm# [phone] LIPASEon 05-31-2021 Lipase [Catalytic activity/Vol] 18 U/L Normal 12-60 [facility] Comment on above: Order Comment: Campu s: M Result Comment: NOTE NEW NORMAL RANGE DUE TO REAGENT CHANGE Performed By: #### L 500.60895, L500.23287, L500.60334, L500.56754 ####[facility] NTIQMVRIUT3595 [place], [place] [address]Td# [phone] LIVERon 05-31-2021 Albumin [Mass/Vol] 4.3 g/dL Normal 3.2-5.0 [facility] Comment on above: Order Comment: Campu s: M Performed By: #### L 500.79025, L500.10623, L500.32625, L500.48536 ####[facility] KVYATZGSHJ1928 [place], [place] [address]Lp# [phone] Albumin/Globulin [Mass ratio] 1.4 {ratio} Normal 0.8-2.0 [facility] Comment on above: Order Comment: Campu s: M Performed By: #### L 500.72293, L500.13802, L500.57360, L500.67761 ####[facility] TJFLHUISLS8525 [place], [place] [address]Fl# [phone] ALK PHOS 89 U/L Normal 45-117 [facility] Comment on above: Order Comment: Campu s: M Performed By: #### L 500.87183, L500.62025, L500.48932, L500.22639 ####[facility] QWBIAFGFVW6621 [place], [place] [address]Mu# [phone] ALT [Catalytic activity/Vol] 11 U/L Low 13-61 [facility] Comment on above: Order Comment: Campu s: M Result Comment: RESU LTS MAY BE FALSELY DEPRESSED AFTER THE ADMINISTRATION OFSULFASALAZINE AND/OR SULFAPYRIDINE. Performed By: #### L 500.15298, L500.61120, L500.69034, L500.12007 ####[facility] XDZPWSBFXG8273 [place], [place] [address]Nd# [phone] AST [Catalytic activity/Vol] 16 U/L Normal 8-34 [facility] Comment on above: Order Comment: Campu s: M Result Comment: RESU LTS MAY BE FALSELY DEPRESSED AFTER THE ADMINISTRATION OFSULFASALAZINE AND/OR SULFAPYRIDINE. Performed By: #### L 500.22735, L500.53447, L500.46503, L500.00571 ####[facility] BRQYOMKQLG1105 [place], [place] [address]Xr# [phone] BILI DIRECT 0.3 MG/DL Normal 0.00-0.36 [facility] Comment on above: Order Comment: Campu s: M Result Comment: NOTE NEW NORMAL RANGE DUE TO REAGENT CHANGE Performed By: #### L 500.12934, L500.71273, L500.34520, L500.81905 ####[facility] BGWGVEBTHU5474 [place], [place] [address]Bv# [phone] BILI TOTAL 1.00 MG/DL Normal 0.2-1.0 [facility] Comment on above: Order Comment: Campu s: M Performed By: #### L 500.00910, L500.93570, L500.23017, L500.35968 ####[facility] POXJMLHSTB0029 [place], [place] [address]Qs# [phone] Globulin (S) [Mass/Vol] 3.0 g/dL Normal 2.2-4.2 [facility] Comment on above: Order Comment: Campu s: M Performed By: #### L 500.42577, L500.94891, L500.94082, L500.06032 ####[facility] BDPAUCJLUU3075 [place], [place] [address]Sz# [phone] Protein [Mass/Vol] 7.3 g/dL Normal 6.0-8.5 [facility] Comment on above: Order Comment: Campu s: M Performed By: #### L 500.05525, L500.00501, L500.59350, L500.04678 ####[facility] XESVWHICOG7616 [place], [place] [address]Bh# [phone] PORTABLE CHESTon 05-31-2021 PORTABLE CHEST Normal [facility] [id number] 05-31-2021 SARS-CoV-2 (COVID-19) RNA DANIEL+probe Ql (Unsp spec) Negative Invalid Interpretation Code Negative [facility] Comment on above: Order Comment: Campu s: M Result Comment: RESU LTS CALLED TO MillicentSathish ZINA, UA/EDAT 205305/31/21 BY JHOANA PALMERNegative results do not preclude SARS-CoV-2 infection andshould not be used as the sole basis for treatment or otherpatient management decisions. Negative results must becombined with clinical observation, patient history, andepidemiological information.This test was performed by PCR. Performed By: #### L 770.67468 ####[facility] IAMXWDPFFE0294 [place], [place] [address]Tg# [phone] UA COMPLETEon 05-31-2021 Color (U) Straw Normal [facility] Comment on above: Order Comment: Campu s: M Performed By: #### L 600.89124 ####[facility] [address]POEATBXZ[address] [place] [address]Jt# [phone] Glucose (U) [Mass/Vol] 500 mg/dL Normal NORMAL [facility] Comment on above: Order Comment: Campu s: M Performed By: #### L 600.96251 ####[facility] HVPBDOIIML4789 [place], [place] [address]Cy# [phone] UA APPEARANCE Clear Normal CLEAR [facility] Comment on above: Order Comment: Campu s: M Performed By: #### L 600.29619 ####[facility] JMWGRHAVWG8471 [place], [place] [address]Ix# [phone] UA BILIRUBIN Negative Normal NEGATIVE [facility] Comment on above: Order Comment: Campu s: M Performed By: #### L 600.73066 ####[facility] DXPTHHYZYS2103 [place], [place] [address]Zs# [phone] UA BLOOD Negative Normal NEGATIVE [facility] Comment on above: Order Comment: Campu s: M Performed By: #### L 600.03141 ####[facility] GSWSBCONJV1967 [place], [place] [address]Wm# [phone] UA KETONE 80 Normal NEGATIVE [facility] Comment on above: Order Comment: Campu s: M Performed By: #### L 600.32074 ####[facility] ZYONBWBOEF9499 [place], [place] [address]Hc# [phone] UA LK ESTERASE Negative Normal NEGATIVE [facility] Comment on above: Order Comment: Campu s: M Performed By: #### L 600.70517 ####[facility] GFGEKXSPWS[address] [place] [address]Wb# [phone] UA NITRITE Negative Normal NEGATIVE [facility] Comment on above: Order Comment: Campu s: M Performed By: #### L 600.83686 ####[facility] YSXRXLEPCS[address] [place] [address]Kp# [phone] UA PH 6.0 Normal 5-6 [facility] Comment on above: Order Comment: Campu s: M Performed By: #### L 600.18932 ####[facility] [address]UJVXHZKH[address] [place] [address]By# [phone] UA PROTEIN Negative Normal NEGATIVE [facility] Comment on above: Order Comment: Campu s: M Performed By: #### L 600.68412 ####[facility] [id number] [place] [address]Ah# [phone] UA SPEC GRAV 1.030 Normal 1.005-1.030 [facility] Comment on above: Order Comment: Campu s: M Performed By: #### L 600.53604 ####[facility] NBHMKFSOYL[address] [place] [address]Xs# [phone] UA UROBILINOGEN Negative Normal NORMAL [facility] Comment on above: Order Comment: Campu s: M Performed By: #### L 600.74499 ####[facility] [address]IPTKJITVT[address] [place] [address]Zv# [phone] BMPon 04-15-2021 Anion gap [Moles/Vol] 14 mmol/L Normal 5-16 [facility] [place] Comment on above: Order Comment: Campu s: M Performed By: #### L 500.07474, L500.03821, L500.20120, L500.79755 ####[facility] VSXLQKDCNB4445 [place], [place] [address]Bv# [phone] Calcium [Mass/Vol] 9.9 mg/dL Normal 8.5-10.5 [facility] Comment on above: Order Comment: Campu s: M Result Comment: NOTE NEW NORMAL RANGE DUE TO REAGENT CHANGE Performed By: #### L 500.35363, L500.75935, L500.49367, L500.08572 ####[facility] WGSBKIDUOC7969 [place], [place] [address]Fu# [phone] Chloride [Moles/Vol] 96 mmol/L Low 98-107 [facility] Comment on above: Order Comment: Campu s: M Performed By: #### L 500.08058, L500.39470, L500.20482, L500.59558 ####[facility] UVWYXTLODX4423 [place], [place] [address]Gb# [phone] CO2 [Moles/Vol] 22.0 mmol/L Normal 21-32 [facility] Comment on above: Order Comment: Campu s: M Performed By: #### L 500.62281, L500.51812, L500.65478, L500.75467 ####[facility] VASTBTFQCN7966 [place], [place] [address]Ks# [phone] Creatinine [Mass/Vol] 0.68 mg/dL Normal 0.510-0.950 [facility] Comment on above: Order Comment: Campu s: M Result Comment: Cleopatra ents receiving either N-Acetylcysteine (NAC) orMetamizole prior to venipuncture, may have falsely depressedresults. Performed By: #### L 500.38784, L500.51665, L500.79783, L500.99688 ####[facility] IHBCWMULIJ1554 [place], [place] [address]Qo# [phone] Glucose [Mass/Vol] 306 mg/dL High 70-100 [facility] Comment on above: Order Comment: Campu s: M Result Comment: 70-1 00- Normal Fasting; 100-125 Impaired Fasting; greaterthan 126 on more than one result- Diabetes. ADA guidelines.Results may be falsely elevated after the administration ofSulfapyridine.Results may be falsely depressed after the administration ofSulfasalazine. Performed By: #### L 500.62475, L500.90112, L500.59778, L500.16407 ####[facility] QQNFRJNQRU3087 [place], [place] [address]On# [phone] Potassium [Moles/Vol] 3.3 mmol/L Low 3.5-5.1 [facility] Comment on above: Order Comment: Campu s: M Performed By: #### L 500.84176, L500.91552, L500.49619, L500.28938 ####[facility] KVHOEGHUYU0677 [place], [place] [address]Gk# [phone] Sodium [Moles/Vol] 133 mmol/L Low 136-145 [facility] Comment on above: Order Comment: Campu s: M Performed By: #### L 500.26181, L500.27136, L500.30924, L500.73712 ####[facility] UMRRTHIQFQ[address] [place] [address]Xd# [phone] Urea nitrogen [Mass/Vol] 21 mg/dL Normal 7-26 [facility] Comment on above: Order Comment: Campu s: M Performed By: #### L 500.59475, L500.94312, L500.77174, L500.90573 ####[facility] UKWFYPETYS6796 [place], [place] [address]Zs# [phone] Urea nitrogen/Creatinine [Mass ratio] 31 mg/mg High 15-24 [facility] Comment on above: Order Comment: Campu s: M Performed By: #### L 500.65343, L500.32951, L500.34946, L500.10114 ####[facility] ZQNTNSVBTW7370 [place], [place] [address]Wl# [phone] Stacie 04-15-2021 EMERGENCY PHYSICIAN REPORT This is a preliminary report only, as the practitioner review and authentication has not occurred. Normal [facility] ER Normal [facility] EMERGENCY PHYSICIAN REPORT This is a preliminary report only, as the practitioner review and authentication has not occurred. Normal [facility] ER Normal [facility] G[facility] ESTon 04-15-2021 IF AMER Greater than 60 [facility] Comment on above: Order Comment: Campu s: M Performed By: #### L 500.76640, L500.38310, L500.19306, L500.64907 ####[facility] SXMCSXEXKC6297 [place], [place] [address]Hs# [phone] IF non-AFR AMER Greater than 60 [facility] Comment on above: Order Comment: Campu s: M Performed By: #### L 500.84215, L500.67717, L500.26920, L500.82803 ####[facility] WJWAFLAOCN4486 [place], [place] [address]Fr# [phone] GLUCOSE METERon 04-15-2021 Glucose [Mass/Vol] 305 mg/dL High 70-115 [facility] Glucose [Mass/Vol] 197 mg/dL High 70-115 [facility] LACTATE BLOODon 04-15-2021 LACTATE BLOOD 2.16 MMOL/L High 0.40-2.00 [facility] Comment on above: Order Comment: Campu s: M Performed By: #### L 550.97862 ####[facility] BPEMJRHMYL6118 [place], [place] [address]Qi# [phone] LIPASEon 04-15-2021 Lipase [Catalytic activity/Vol] 19 U/L Normal 12-60 [facility] Comment on above: Order Comment: Campu s: M Result Comment: NOTE NEW NORMAL RANGE DUE TO REAGENT CHANGE Performed By: #### L 500.30753, L500.86986, L500.70338, L500.75155 ####[facility] LXRACJPFSS6881 [place], [place] [address]Bk# [phone] LIVERon 04-15-2021 Albumin [Mass/Vol] 4.2 g/dL Normal 3.2-5.0 [facility] Comment on above: Order Comment: Campu s: M Performed By: #### L 500.66680, L500.14445, L500.58826, L500.89973 ####[facility] PJSWOWAXFU6520 [place], [place] [address]Ro# [phone] Albumin/Globulin [Mass ratio] 1.3 {ratio} Normal 0.8-2.0 [facility] Comment on above: Order Comment: Campu s: M Performed By: #### L 500.47678, L500.82858, L500.48144, L500.51679 ####[facility] XXENJJWUOW1556 [place], [place] [address]Pp# [phone] ALK PHOS 102 U/L Normal 45-117 [facility] Comment on above: Order Comment: Campu s: M Performed By: #### L 500.81735, L500.91141, L500.89700, L500.78250 ####[facility] XLQWUHMKON9303 [place], [place] [address]Ct# [phone] ALT [Catalytic activity/Vol] 11 U/L Low 13-61 [facility] Comment on above: Order Comment: Campu s: M Result Comment: RESU LTS MAY BE FALSELY DEPRESSED AFTER THE ADMINISTRATION OFSULFASALAZINE AND/OR SULFAPYRIDINE. Performed By: #### L 500.38053, L500.36200, L500.27111, L500.08668 ####[facility] BBUWXGKKLY5552 [place], [place] [address]Dh# [phone] AST [Catalytic activity/Vol] 13 U/L Normal 8-34 [facility] Comment on above: Order Comment: Campu s: M Result Comment: RESU LTS MAY BE FALSELY DEPRESSED AFTER THE ADMINISTRATION OFSULFASALAZINE AND/OR SULFAPYRIDINE. Performed By: #### L 500.20251, L500.81618, L500.62108, L500.07317 ####[facility] ZAAZKNNYQS1221 [place], [place] [address]Zg# [phone] BILI DIRECT 0.3 MG/DL Normal 0.00-0.36 [facility] Comment on above: Order Comment: Campu s: M Result Comment: NOTE NEW NORMAL RANGE DUE TO REAGENT CHANGE Performed By: #### L 500.65735, L500.44487, L500.42016, L500.20629 ####[facility] LRCSAJADUQ4386 [place], [place] [address]Xl# [phone] BILI TOTAL 1.10 MG/DL High 0.2-1.0 [facility] Comment on above: Order Comment: Campu s: M Performed By: #### L 500.60363, L500.35071, L500.68079, L500.93826 ####[facility] PPXNZBNJON5253 [place], [place] [address]Lq# [phone] Globulin (S) [Mass/Vol] 3.3 g/dL Normal 2.2-4.2 [facility] Comment on above: Order Comment: Campu s: M Performed By: #### L 500.59142, L500.75513, L500.08175, L500.17511 ####[facility] RLQSQJMUPW6672 [place], [place] [address]Hz# [phone] Protein [Mass/Vol] 7.5 g/dL Normal 6.0-8.5 [facility] Comment on above: Order Comment: Campu s: M Performed By: #### L 500.80689, L500.88295, L500.21437, L500.16051 ####[facility] RCVBIUVDIY0644 [place], [place] [address]Lr# [phone] UA COMPLETEon 04-15-2021 Color (U) Yellow Normal [facility] Comment on above: Order Comment: Campu s: M Performed By: #### L 600.07072 ####[facility] KGSKMGFZTY[address] [place] [address]Yn# [phone] Glucose (U) [Mass/Vol] 500 mg/dL Normal NORMAL [facility] [place] Comment on above: Order Comment: Campu s: M Performed By: #### L 600.41491 ####[facility] WSYJOUIFGR8[address] [place] [address]Np# [phone] Mucus Ql (Urine sed) TRACE Normal NEGATIVE [facility] [place] Comment on above: Order Comment: Campu s: M Performed By: #### L 600.79719 ####[address] [address]Jn# [phone] SQUAMOUS EPIS 2 EPI/HPF Normal 0-5 [facility] Comment on above: Order Comment: Campu s: M Performed By: #### L 600.68829 ####[address] [address]Pu# [phone] UA APPEARANCE Clear Normal CLEAR [facility] Comment on above: Order Comment: Campu s: M Performed By: #### L 600.26124 ####[address] [address]Hq# [phone] UA BACTERIA TRACE Normal NONE [facility] Comment on above: Order Comment: Campu s: M Performed By: #### L 600.97765 ####[facility] [id number] [place] [address]Aa# [phone] UA BILIRUBIN Negative Normal NEGATIVE [facility] Comment on above: Order Comment: Campu s: M Performed By: #### L 600.80465 ####[facility] QWPXDVKUVD64[address] [place] [address]Og# [phone] UA BLOOD Negative Normal NEGATIVE [facility] Comment on above: Order Comment: Campu s: M Performed By: #### L 600.74950 ####[facility] QYMAEMKATF8790 [place], [place] [address]Jg# [phone] UA KETONE 80 Normal NEGATIVE [facility] Comment on above: Order Comment: Campu s: M Performed By: #### L 600.24300 ####[facility] ZEQISJTUVU[address] [place] [address]Ic# [phone] UA LK ESTERASE Negative Normal NEGATIVE [facility] Comment on above: Order Comment: Campu s: M Performed By: #### L 600.32376 ####[facility] WLIEGRRKKL[address] [place] [address]Mj# [phone] UA NITRITE Negative Normal NEGATIVE [facility] Comment on above: Order Comment: Campu s: M Performed By: #### L 600.07054 ####[facility] SISJPGOIPM[address] [place] [address]Zj# [phone] UA PH 6.0 Normal 5-6 [facility] Comment on above: Order Comment: Campu s: M Performed By: #### L 600.91032 ####[facility] FTGONBESSW[address] [place] [address]Qt# [phone] UA PROTEIN 30 Normal NEGATIVE [facility] Comment on above: Order Comment: Campu s: M Performed By: #### L 600.33940 ####[facility] [id number] [place] [address] 81160Mb# [phone] UA RBC 1 RBC/HPF Normal 0-3 [facility] Comment on above: Order Comment: Campu s: M Performed By: #### L 600.60399 ####[facility] [id number] [place] [address] 13081Kx# [phone] UA SPEC GRAV 1.017 Normal 1.005-1.030 [facility] Comment on above: Order Comment: Campu s: M Performed By: #### L 600.28401 ####[facility] [id number] [place] [address] 07488Ym# [phone] UA UROBILINOGEN Negative Normal NORMAL [facility] Comment on above: Order Comment: Campu s: M Performed By: #### L 600.28701 ####[facility] [id number] [place], [place] [address]Uh# [phone] UA WBC 6 WBC/HPF High 0-5 [facility] Comment on above: Order Comment: Campu s: M Performed By: #### L 600.51998 ####[facility] [id number] [place] [address] 664[address]Aw# [phone] BMPon 03-17-2021 Anion gap [Moles/Vol] 16 mmol/L Normal 5-16 [facility] [place] Comment on above: Order Comment: Campu s: M Performed By: #### L 500.51432, L500.54832 ####[facility] [id number] [place], [place] [address]Ra# [phone] Calcium [Mass/Vol] 10.0 mg/dL Normal 8.5-10.5 [facility] Comment on above: Order Comment: Campu s: M Result Comment: NOTE NEW NORMAL RANGE DUE TO REAGENT CHANGE Performed By: #### L 500.20042, L500.35447 ####[facility] [id number] [place], [place] [address]Qz# [phone] Chloride [Moles/Vol] 102 mmol/L Normal 98-107 [facility] Comment on above: Order Comment: Campu s: M Performed By: #### L 500.94953, L500.27218 ####[facility] [id number] [place], [place] [address]Sz# [phone] CO2 [Moles/Vol] 16.0 mmol/L Low 21-32 [facility] Comment on above: Order Comment: Campu s: M Performed By: #### L 500.06598, L500.96536 ####[facility] [id number] [place], [place] [address]Ro# [phone] Creatinine [Mass/Vol] 0.71 mg/dL Normal 0.510-0.950 [facility] [place] Comment on above: Order Comment: Campu s: M Result Comment: Cleopatra ents receiving either N-Acetylcysteine (NAC) orMetamizole prior to venipuncture, may have falsely depressedresults. Performed By: #### L 500.38573, L500.31306 ####[facility] [id number] [place], [place] [address]Gv# [phone] Glucose [Mass/Vol] 418 mg/dL High 70-100 [facility] Comment on above: Order Comment: Campu s: M Result Comment: 70-1 00- Normal Fasting; 100-125 Impaired Fasting; greaterthan 126 on more than one result- Diabetes. ADA guidelines.Results may be falsely elevated after the administration ofSulfapyridine.Results may be falsely depressed after the administration ofSulfasalazine. Performed By: #### L 500.97141, L500.89352 ####[facility] [id number] [place], [place] [address]Io# [phone] Potassium [Moles/Vol] 4.2 mmol/L Normal 3.5-5.1 [facility] Comment on above: Order Comment: Campu s: M Result Comment: Slig ht Hemolysis, Result may be affected. Performed By: #### L 500.50234, L500.82012 ####[facility] [id number] [place], [place] [address]Js# [phone] Sodium [Moles/Vol] 134 mmol/L Low 136-145 [facility] Comment on above: Order Comment: Campu s: M Performed By: #### L 500.00793, L500.84888 ####[facility] [id number] [place], [place] [address]Uu# [phone] Urea nitrogen [Mass/Vol] 25 mg/dL Normal 7-26 [facility] Comment on above: Order Comment: Campu s: M Performed By: #### L 500.30338, L500.29032 ####[facility] [id number] [place], [place] [address]Oz# [phone] Urea nitrogen/Creatinine [Mass ratio] 35 mg/mg High 15-24 [facility] [place] Comment on above: Order Comment: Campu s: M Performed By: #### L 500.40607, L500.10259 ####[facility] [id number] [place] [address]Wh# [phone] CBC W/DIFFon 03-17-2021 BASO ABS 0.00 K/CU MM Normal 0-0.2 [facility] [place] Comment on above: Order Comment: Campu s: M Performed By: #### L 200.14395 ####[facility] [id number] [place] [address]Bf# [phone] Basophils/100 WBC (Bld) 0.1 % Normal 0-2 [facility] [place] Comment on above: Order Comment: Campu s: M Performed By: #### L 200.96784 ####[address] [address]Ab# [phone] EOS ABS 0.00 K/CU MM Normal 0-0.5 [facility] [place] Comment on above: Order Comment: Campu s: M Performed By: #### L 200.47813 ####[facility] [id number] [place] [address]Gk# [phone] Eosinophils/100 WBC (Bld) 0.0 % Normal 0-5 [facility] Comment on above: Order Comment: Campu s: M Performed By: #### L 200.77942 ####[facility] [id number] [place] [address]Br# [phone] Erythrocyte distribution width (RBC) [Ratio] 14.6 % High 11-14.5 [facility] Comment on above: Order Comment: Campu s: M Performed By: #### L 200.65069 ####[facility] [id number] [place] [address]Fg# [phone] Hematocrit (Bld) [Volume fraction] 37.2 % Normal 35.0-47.0 [facility] Comment on above: Order Comment: Campu s: M Performed By: #### L 200.79224 ####[facility] [id number] [place], [place] [address]Zr# [phone] Hemoglobin (Bld) [Mass/Vol] 12.4 g/dL Normal 11.5-15.5 [facility] Comment on above: Order Comment: Campu s: M Performed By: #### L 200.64256 ####[place] [address]Ph# [phone] IMMATR GRAN ABS 0.10 K/CU MM Normal Less than 2 [facility] [place] Comment on above: Order Comment: Campu s: M Performed By: #### L 200.67493 ####[place] [address]Ph# [phone] IMMATURE GRAN % 0.8 % Normal Less than 2 [facility] [place] Comment on above: Order Comment: Campu s: M Performed By: #### L 200.17632 ####[place] [address]Ph# [phone] LYMPH ABS 0.80 K/CU MM Low 0.9-4.4 [facility] Comment on above: Order Comment: Campu s: M Performed By: #### L 200.27695 ####[place] [address]Ph# [phone] Lymphocytes/100 WBC (Bld) 4.5 % Low 20-40 [facility] Comment on above: Order Comment: Campu s: M Performed By: #### L 200.34881 ####[facility] [id number] [place], [place] [address]Ph# [phone] MCHC (RBC) [Mass/Vol] 33.3 g/dL Normal 32.0-36.0 [facility] [place] Comment on above: Order Comment: Campu s: M Performed By: #### L 200.44116 ####[facility] [id number] [place], [place] [address]Ph# [phone] MCV (RBC) [Entitic vol] 83.2 fL Normal 80.0-99.0 [facility] Comment on above: Order Comment: Campu s: M Performed By: #### L 200.39152 ####[facility] [id number] [place], [place] [address]Nu# [phone] MONO ABS 0.30 K/CU MM Normal 0.1-1.1 [facility] Comment on above: Order Comment: Campu s: M Performed By: #### L 200.88853 ####[facility] [id number] [place], [place] [address]Ph# [phone] Monocytes/100 WBC (Bld) 1.7 % Low 2-10 [facility] Comment on above: Order Comment: Campu s: M Performed By: #### L 200.24191 ####[address] [address]Vk# [phone] NEUTROPHIL ABS 16.70 K/CU MM High 2.0-8.3 [facility] [place] Comment on above: Order Comment: Campu s: M Performed By: #### L 200.37140 ####[facility] [id number] [place], [place] [address]Ph# [phone] Neutrophils/100 WBC (Bld) 92.9 % High 45-75 [facility] Comment on above: Order Comment: Campu s: M Performed By: #### L 200.40830 ####[facility] [id number] [place], [place] [address]Ph# [phone] Nucleated RBC/100 WBC (Bld) [Ratio] 0.0 % Normal Less than 1 [facility] Comment on above: Order Comment: Campu s: M Performed By: #### L 200.88057 ####[facility] [id number] [place] [address]Ae# [phone] Platelet mean volume (Bld) [Entitic vol] 12.9 fL High 9.4-12.4 [facility] Comment on above: Order Comment: Campu s: M Performed By: #### L 200.89971 ####[facility] [id number] [place], [place] [address]Vh# [phone] PLT 181 K/CU MM Normal 150-450 [facility] Comment on above: Order Comment: Campu s: M Performed By: #### L 200.03694 ####[facility] [id number] [place], [place] [address]Ax# [phone] RBC 4.47 M/CU MM Normal 3.90-5.30 [facility] Comment on above: Order Comment: Campu s: M Performed By: #### L 200.91420 ####[facility] [id number] [place], [place] [address]Hn# [phone] WBC 17.9 K/CUMM High 4.5-11.0 [facility] Comment on above: Order Comment: Campu s: M Performed By: #### L 200.90945 ####[facility] [id number] [place], [place] [address]Gj# [phone] Stacie 03-17-2021 EMERGENCY PHYSICIAN REPORT This is a preliminary report only, as the practitioner review and authentication has not occurred. [facility] ER [facility] EMERGENCY PHYSICIAN REPORT This is a preliminary report only, as the practitioner review and authentication has not occurred. [facility] ER [facility] GFR ESTon 03-17-2021 IF AMER Greater than 60 [facility] Comment on above: Order Comment: Campu s: M Performed By: #### L 500.41907, L500.59810 ####[facility] [id number] [place], [place] [address]Jo# [phone] IF non-AFR AMER Greater than 60 [facility] Comment on above: Order Comment: Campu s: M Performed By: #### L 500.75741, L500.78598 ####[facility] [id number] [place], [place] [address]At# [phone] GLUCOSE METERon 03-17-2021 Glucose [Mass/Vol] 333 mg/dL High 70-115 [facility] [place] Glucose [Mass/Vol] 360 mg/dL High 70-115 [facility] [place] VBG PHon 03-17-2021 VBG PH 7.40 MMHG Normal 7.31-7.41 [facility] Comment on above: Order Comment: Zach s: M Performed By: #### L 100.96137 ####[facility] [id number] [place], [place] [address]Wa# [phone] A1C Hgbon 02-24-2017 Hemoglobin A1c/Hemoglobin.total mass fraction (Bld) 10.8 % High 4.0-6.0 [facility] Comment on above: Performed By: #### G FR ####[facility], [address] [place] [address]398 Basic Metabolic Panelon 01-28 BUN/Creatinine Ratio 21.4 mg/mg Normal 10.0-22.0 [facility] Comment on above: Order Comment: CBN Performed By: #### G FR ####[facility], [address] [place] [address]6218 Creatinine 0.56 mg/dL Normal 0.50-1.20 [facility] Comment on above: Order Comment: CBN Performed By: #### G FR ####[address] [address] Calcium 7.8 mg/dL Low 8.4-10.1 [facility] Comment on above: Order Comment: CBN Performed By: #### G FR ####[facility], [facility] [place] [address] Chloride 107 mmol/L Normal 98-110 [facility] Comment on above: Order Comment: CBN Performed By: #### G FR ####[facility], [facility] [address] [place] [address] 41382 Electrolyte Balance 10.0 mEq/L Normal 4.0-15.0 [facility] Comment on above: Order Comment: CBN Performed By: #### G FR ####[facility], [address] [place] [address] 61555 Sodium 138 mmol/L Normal 136-145 [facility] Comment on above: Order Comment: CBN Performed By: #### G FR ####[facility], [address] [place] [address] 24515 Glucose mass conc 289 mg/dL High 70-110 [facility] Comment on above: Order Comment: CBN Performed By: #### G FR ####[facility], [address] [place] [address] 11016 CO2 21 mmol/L Low 22-32 [facility] Comment on above: Order Comment: CBN Performed By: #### G FR ####[facility], [address] [place] [address] 08074 Urea nitrogen 12.0 mg/dL Normal 8.0-22.0 [facility] Comment on above: Order Comment: CBN Performed By: #### G FR ####[facility], [address] [place] [address] 99863 Potassium molar conc 3.7 mmol/L Normal 3.5-5.0 [facility] Comment on above: Order Comment: CBN Performed By: #### G FR ####[facility], [address] [place] [address] 13098 CBCon 02-24-2017 Basophils/100 WBC Auto (Bld) 0.4 % Normal 0.0-2.5 [facility] Comment on above: Order Comment: CBN Performed By: #### G FR ####[facility], [address] [place] [address] 94296 Eosinophils/100 leukocytes 1.5 % Normal 0.0-6.0 [facility] Comment on above: Order Comment: CBN Performed By: #### G FR ####[facility], [address] [place] [address] 69554 Erythrocyte distribution width Auto Ratio (RBC) 15.1 % Normal 11.5-15.5 [facility] Comment on above: Order Comment: CBN Performed By: #### G FR ####[facility], [address] [place] [address] 29249 Erythrocytes (RBC) 4.19 10 6/mcL Normal 4.10-5.30 [facility] Comment on above: Order Comment: CBN Performed By: #### G FR ####[facility], [address] [place] [address] 31445 Hematocrit (HCT) 35.9 % Normal 34.0-46.0 [facility] Comment on above: Order Comment: CBN Performed By: #### G FR ####[facility], [address] [place] [address] 46566 Hemoglobin mass conc (Bld) 11.9 G/dL Low 12.0-16.0 [facility] Comment on above: Order Comment: CBN Performed By: #### G FR ####[address] [address] Lymphocytes/100 leukocytes 36.7 % Normal 20.0-40.0 [facility] Comment on above: Order Comment: CBN Performed By: #### G FR ####[facility], [address] [place] [address] 55369 MCH 28.5 pg Normal 27.0-33.0 [facility] Comment on above: Order Comment: CBN Performed By: #### G FR ####[facility], [address] [place] [address] 19833 MCHC mass conc (RBC) 33.2 G/dL Normal 32.0-36.0 [facility] Comment on above: Order Comment: CBN Performed By: #### G FR ####[address] [address] MCV 85.8 fL Normal 80.0-99.0 [facility] Comment on above: Order Comment: CBN Performed By: #### G FR ####[address] [address] Monocytes/100 leukocytes 4.9 % Normal 2.0-13.0 [facility] Comment on above: Order Comment: CBN Performed By: #### G FR ####[facility], [address] [place] [address] 93907 Neutrophils 4.40 10 3/mcL Normal 1.90-7.90 [facility] Comment on above: Order Comment: CBN Performed By: #### G FR ####[facility], [address] [place] [address] 84232 Neutrophils/100 WBC Auto (Bld) 56.5 % Normal 50.0-75.0 [facility] Comment on above: Order Comment: CBN Performed By: #### G FR ####[address] [address] Platelet mean volume (PMV) 8.0 fL Normal 6.6-10.5 [facility] Comment on above: Order Comment: CBN Performed By: #### G FR ####[address] [address] Platelets 301 10 3/mcL Normal 150-450 [facility] Comment on above: Order Comment: CBN Performed By: #### G FR ####[address] [address] WBC (Leukocytes) 7.70 10 3/mcL Normal 4.50-10.80 [facility] Comment on above: Order Comment: CBN Performed By: #### G FR ####[address] [address] Depart Summaryon 02-24-2017 Depart Summary Normal [facility] Discharge Note-Physicianon 0 02-24-2017 Discharge Note-Physician Normal [facility] Glomerular Filtration Rate E stimateon 02-24-2017 eGFR (non-black) mL/min/{1.73_m2} Normal [facility] Comment on above: Order Comment: CBN Result Comment: Davidson kowalski mean GFR = 116 mL/min/1.73 sq.m. for ages 20-29 years. Chronic Kidney Disease: Less than 60 mL/min/1.73 square metersEnd Stage Renal Disease: Less than 15 mL/min/1.73 square meters Performed By: #### G FR ####[facility], [address] [place], [place] [id number] History and Physicalon 02-24 History and Physical Normal [facility] Inpatient Patient Summaryon 02-24-2017 Inpatient Patient Summary Normal [facility] Troponin Ion 02-24-2017 Troponin I.cardiac mass conc ng/mL Normal 0.000-0.040 [facility] Comment on above: Result Comment: Trop onin I reference ranges (05/05/14): 0.00-0.040 ng/mL Negative and non-diagnostic. >0.040 ng/mL Consistent with cardiac damage, increased clinical risk and possibility of myocardial infarction. Serial measurements, a rise & fall in test results, clinical history, appropriate symptoms and/or ECG changes may help assess possibility of OK. *Other non-acute coronary syndrome conditions such as CHF, myocarditis, pulmonary emboli, sepsis and cardiac surgery could result in myocardial damage and increased troponin levels. NOTE: This is a new and more precise Troponin assay started 05-05-14 Performed By: #### C BC ####[place] [id number] B-Hydroxybutyrateon 02-24-20 17 B-Hydroxybutyrate 51.30 mg/dL High 0.20-2.81 [facility] Comment on above: Performed By: #### C BC ####[place] [id number] Basic Metabolic Panelon 01-27 BUN/Creatinine Ratio 32.1 mg/mg High 10.0-22.0 [facility] Comment on above: Performed By: #### C BC ####[place] [address] Creatinine 0.53 mg/dL Normal 0.50-1.20 [facility] Comment on above: Performed By: #### C BC ####[place] [address] Calcium 8.0 mg/dL Low 8.4-10.1 [facility] Comment on above: Performed By: #### C BC ####[facility], [address] [place] [address] 75782 Chloride 109 mmol/L Normal 98-110 [facility] Comment on above: Performed By: #### C BC ####[facility], [address] [place] [address] 38331 Electrolyte Balance 15.0 mEq/L Normal 4.0-15.0 [facility] Comment on above: Performed By: #### C BC ####[facility], [address] [place] [address] 33991 Sodium 141 mmol/L Normal 136-145 [facility] Comment on above: Performed By: #### C BC ####[facility], [address] [place] [address] 58416 CO2 17 mmol/L Low 22-32 [facility] Comment on above: Performed By: #### C BC ####[facility], [address] [place] [address] 54910 Glucose mass conc 160 mg/dL High 70-110 [facility] Comment on above: Performed By: #### C BC ####[facility], [address] [place] [address] 14920 Urea nitrogen 17.0 mg/dL Normal 8.0-22.0 [facility] Comment on above: Performed By: #### C BC ####[facility], [address] [place] [address] 67666 Potassium molar conc 3.9 mmol/L Normal 3.5-5.0 [facility] Comment on above: Performed By: #### C BC ####[facility], [address] [place] [address] 04501 Calcium 7.9 mg/dL Low 8.4-10.1 [facility] Comment on above: Performed By: #### C BC ####[facility], [address] [place] [address] 35407 Chloride 103 mmol/L Normal 98-110 [facility] Comment on above: Performed By: #### C BC ####[facility], [address] [place] [address] 30738 Electrolyte Balance 15.0 mEq/L Normal 4.0-15.0 [facility] Comment on above: Performed By: #### C BC ####[facility], [address] [place] [address] 70790 BUN/Creatinine Ratio 33.3 mg/mg High 10.0-22.0 [facility] Comment on above: Performed By: #### C BC ####[facility], [address] [place] [address] 49201 Creatinine 0.54 mg/dL Normal 0.50-1.20 [facility] Comment on above: Performed By: #### C BC ####[facility], [address] [place] [address] 97173 CO2 19 mmol/L Low 22-32 [facility] Comment on above: Performed By: #### C BC ####[facility], [address] [place] [address] 52855 Glucose mass conc 368 mg/dL High 70-110 [facility] Comment on above: Performed By: #### C BC ####[facility], [address] [place] [address] 24698 Urea nitrogen 18.0 mg/dL Normal 8.0-22.0 [facility] Comment on above: Performed By: #### C BC ####[facility], [address] [place] [address] 28132 Potassium molar conc 4.2 mmol/L Normal 3.5-5.0 [facility] Comment on above: Performed By: #### C BC ####[address] [address] Sodium 137 mmol/L Normal 136-145 [facility] Comment on above: Performed By: #### C BC ####[facility], [address] [place] [address] 11957 Glucose mass conc 568 mg/dL Critically high 70-110 [facility] Comment on above: Order Comment: CBN Performed By: #### B MP ####[facility], [address] [place] [address] 47290 BUN/Creatinine Ratio 27.3 mg/mg High 10.0-22.0 [facility] Comment on above: Order Comment: CBN Performed By: #### B MP ####[facility], [address] [place] [address] 70901 Creatinine 0.77 mg/dL Normal 0.50-1.20 [facility] Comment on above: Order Comment: CBN Performed By: #### B MP ####[facility], [facility] [address] [place] [address] 35386 Calcium 10.1 mg/dL Normal 8.4-10.1 [facility] Comment on above: Order Comment: CBN Performed By: #### B MP ####[facility], [address] [place] [address] 43972 CO2 21 mmol/L Low 22-32 [facility] Comment on above: Order Comment: CBN Performed By: #### B MP ####[address] [address] Electrolyte Balance 19.0 mEq/L High 4.0-15.0 [facility] Comment on above: Order Comment: CBN Performed By: #### B MP ####[facility], [address] [place] [address] 75848 Urea nitrogen 21.0 mg/dL Normal 8.0-22.0 [facility] Comment on above: Order Comment: CBN Performed By: #### B MP ####[facility], [facility] [address] [place] [address] 60046 Chloride 89 mmol/L Low 98-110 [facility] Comment on above: Order Comment: CBN Performed By: #### B MP ####[facility], [facility] [address] [place] [address] 38799 Potassium molar conc 4.5 mmol/L Normal 3.5-5.0 [facility] Comment on above: Order Comment: CBN Performed By: #### B MP ####[facility], [facility] [address] [place] [address] 82942 Sodium 129 mmol/L Low 136-145 [facility] Comment on above: Order Comment: CBN Performed By: #### B MP ####[facility], [address] [place] [address] 55789 CBCon 02-23-2017 Basophils/100 WBC Auto (Bld) 0.7 % Normal 0.0-2.5 [facility] Comment on above: Order Comment: CBN Performed By: #### C BC ####[address] [address] Eosinophils/100 leukocytes 0.7 % Normal 0.0-6.0 [facility] Comment on above: Order Comment: CBN Performed By: #### C BC ####[place] [address] Erythrocyte distribution width Auto Ratio (RBC) 14.9 % Normal 11.5-15.5 [facility] Comment on above: Order Comment: CBN Performed By: #### C BC ####[place] [id number] Erythrocytes (RBC) 5.16 10 6/mcL Normal 4.10-5.30 [facility] Comment on above: Order Comment: CBN Performed By: #### C BC ####[place] [id number] Hematocrit (HCT) 44.8 % Normal 34.0-46.0 [facility] Comment on above: Order Comment: CBN Performed By: #### C BC ####[place] [id number] Hemoglobin mass conc (Bld) 14.7 G/dL Normal 12.0-16.0 [facility] Comment on above: Order Comment: CBN Performed By: #### C BC ####[address] [address] Lymphocytes/100 leukocytes 21.2 % Normal 20.0-40.0 [facility] Comment on above: Order Comment: CBN Performed By: #### C BC ####[address] [place] [address] MCH 28.5 pg Normal 27.0-33.0 [facility] Comment on above: Order Comment: CBN Performed By: #### C BC ####[facility], [address] [place] [address] 05825 MCHC mass conc (RBC) 32.8 G/dL Normal 32.0-36.0 [facility] Comment on above: Order Comment: CBN Performed By: #### C BC ####[facility], [address] [place] [address] 78142 MCV 86.9 fL Normal 80.0-99.0 [facility] Comment on above: Order Comment: CBN Performed By: #### C BC ####[facility], [address] [place] [address] 19921 Monocytes/100 leukocytes 3.9 % Normal 2.0-13.0 [facility] Comment on above: Order Comment: CBN Performed By: #### C BC ####[facility], [address] [place] [address] 09614 Neutrophils 6.10 10 3/mcL Normal 1.90-7.90 [facility] Comment on above: Order Comment: CBN Performed By: #### C BC ####[facility], [address] [place] [address] [id number] Neutrophils/100 WBC Auto (Bld) 73.5 % Normal 50.0-75.0 [facility] Comment on above: Order Comment: CBN Performed By: #### C BC ####[facility], [address] [place] [address] 65902 Platelet mean volume (PMV) 7.9 fL Normal 6.6-10.5 [facility] Comment on above: Order Comment: CBN Performed By: #### C BC ####[facility], [address] [place] [address] [id number] Platelets 316 10 3/mcL Normal 150-450 [facility] Comment on above: Order Comment: CBN Performed By: #### C BC ####[facility], [address] [place] [address] 50503 WBC (Leukocytes) 8.30 10 3/mcL Normal 4.50-10.80 [facility] Comment on above: Order Comment: CBN Performed By: #### C BC ####[facility], [address] [place] [address] 12809 Culture Bloodon 02-23-2017 Culture Blood Name : KATHLEEN VILLA Brynn Roque: 1995 Sex: Ovalles# Loc Src Site [id number] Blood #1 02/23/17NTIBIOTICS AT COL.: See MEGAN Angel MEDICINE RESIDENT [address] [place], [place] [id number] Blood FINALCulture has been received in lab and is no growth to date.Routine cultures are held for 5 days.Blood Culture: No Growth at 5 daysKEY FOR RESULTS: - NEW RESULTATT.PHYS.: VAMSI MARRUFO LOCATION: [id number].DATE: 02/23/17 PATIENT : KATHLEEN VILLA LMICROBIOLOGYPRINTED: 02/28/17 18:00 REGULAR 2 PAGE: 2 of 1 1 Normal [facility] Drug Screen (s)on 02-23-2017 Acetaminophen mass conc <2.0 Low 10.0-30.0 [facility] Comment on above: Performed By: #### C BC ####[facility], [address] [place] [address] [id number] Drug Screen (s) Positive Normal [facility] Comment on above: Result Comment: . THE SERUM SHOWS EVIDENCE OF:1. Salicylate. Performed By: #### C BC ####[address] [address] Ethanol mg/dL Normal [facility] Comment on above: Performed By: #### C BC ####[address] [address] Serum TCA Negative Normal [facility] Comment on above: Performed By: #### C BC ####[facility], [address] [place] [address] Salicylate (ds) 3.0 mg/dL Low 10.0-25.0 [facility] Comment on above: Performed By: #### C BC ####[facility], [address] [place] [address] Drugs screened: SEE BELOW Normal [facility] Comment on above: Result Comment: T his drug screen is a presumptive screening only. Noconfirmation will be performed unless requested.Drugs screened include: Threshold Ethanol 10.0 mg/dl Salicylate 2.0 mg/dL Acetaminophen 2.0 mcg/mL Tricyclic Antidepressants 300 ng/mLTesting has been performed FOR MEDICAL PURPOSES ONLY. Performed By: #### C BC ####[place] [id number] ED Note-Provideron 7 ED Note-Provider Normal [facility] Glomerular Filtration Rate E stimateon 02-23-2017 eGFR (non-black) mL/min/{1.73_m2} Normal [facility] Comment on above: Result Comment: [facility]FR = 116 mL/min/1.73 sq.m. for ages 20-29 years. Chronic Kidney Disease: Less than 60 mL/min/1.73 square metersEnd Stage Renal Disease: Less than 15 mL/min/1.73 square meters Performed By: #### C BC ####[place] [address] eGFR (non-black) mL/min/{1.73_m2} Normal [facility] Comment on above: Result Comment: Davidson latsoham mean GFR = 116 mL/min/1.73 sq.m. for ages 20-29 years. Chronic Kidney Disease: Less than 60 mL/min/1.73 square metersEnd Stage Renal Disease: Less than 15 mL/min/1.73 square meters Performed By: #### G FR ####[facility], [address] [place], [place] [id number] eGFR (non-black) mL/min/{1.73_m2} Normal [facility] Comment on above: Order Comment: CBN Performed By: #### G FR ####[facility], [address] [place] [address] Result Comment: Davidson kowalski mean GFR = 116 mL/min/1.73 sq.m. for ages 20-29 years. Chronic Kidney Disease: Less than 60 mL/min/1.73 square metersEnd Stage Renal Disease: Less than 15 mL/min/1.73 square meters Magnesiumon 02-23-2017 Magnesium 2.0 mg/dL Normal 1.6-2.4 [facility] Comment on above: Performed By: #### M G ####[place] [address] Osmolality (s)on 02-23-2017 Osmolality 299 mOsm/kg Normal 275-300 [facility] Comment on above: Performed By: #### C BC ####[place] [id number] Phosphoruson 02-23-2017 Phosphate 2.8 mg/dL Normal 2.5-4.5 [facility] Comment on above: Performed By: #### P HOS ####[place] [id number] TSHon 02-23-2017 Thyroid stimulating hormone (TSH) 0.62 mcIU/mL Normal 0.36-3.74 [facility] Comment on above: Performed By: #### C BC ####[place] [id number] Troponin Ion 02-23-2017 Troponin I.cardiac mass conc ng/mL Normal 0.000-0.040 [facility] Comment on above: Result Comment: Trop onin I reference ranges (05/05/14): 0.00-0.040 ng/mL Negative and non-diagnostic. >0.040 ng/mL Consistent with cardiac damage, increased clinical risk and possibility of myocardial infarction. Serial measurements, a rise & fall in test results, clinical history, appropriate symptoms and/or ECG changes may help assess possibility of OK. *Other non-acute coronary syndrome conditions such as CHF, myocarditis, pulmonary emboli, sepsis and cardiac surgery could result in myocardial damage and increased troponin levels. NOTE: This is a new and more precise Troponin assay started 05-05-14 Performed By: #### T ROPI ####[facility], [address] [place] [address] XR CHEST 1 VIEWon 02-23-2017 XR CHEST 1 VIEW ORIGINALXR CHEST 1 VIEWPortable AP upright CLINICAL INDICATION: Chest Pain COMPARISON: 01/17/2017 FINDINGS: Cardiac and mediastinal silhouettes are normal. Sternotomy wires are present. There is an implantable loop recorder overlying the left heart border. The lungs are free of infiltrate. There is no vascular congestion, pneumothorax or pleural effusion. The bones are intact. IMPRESSION: No acute cardiopulmonary disease. No change from the prior study. Interpreted By: Neo Villagran MDPreliminary Report By: Neo Villagran MDElectronically Signed By: Neo Villagran MD Dictated Date: 02/23/2017 4:54:41 PM Prelim Date: 02/23/2017 4:54:41 PM Sign Date: 02/23/2017 4:58:05 PM Normal [facility] XR FOOT COMPLETE RIGHTon XR FOOT COMPLETE RIGHT ORIGINALXR FOOT COMPLETE RIGHT, 3 views CLINICAL STATEMENT: pain, trauma COMPARISON: None FINDINGS: There is no acute oblique fracture involving the distal portion of the proximal phalanx, fifth digit with lateral displacement of the distal fracture fragment. No other fractures are identified. The calcaneus has an unusual morphology inferiorly, of unlikely significance. The joint spaces are maintained. There is no radiopaque foreign body. IMPRESSION: Acute fracture of the proximal phalanx, fifth digit. Interpreted By: Leticia Lawlerreliminary Report By: Leticia Lawler MDElectronically Signed By: Leticia Lawler MD Dictated Date: 02/23/2017 7:46:42 PM Prelim Date: 02/23/2017 7:46:42 PM Sign Date: 02/23/2017 7:47:57 PM Normal [facility] pH (venous)on 02-23-2017 pH of blood 7.381 [pH] Normal 7.380-7.460 [facility] Comment on above: Order Comment: CBN Performed By: #### P HV ####[facility], [address] [place] [address] Vital Signs Date Time Vital Sign Value Performing Clinician Facility 01-27-2025 13:08-0400 Diastolic blood pressure 87 mm[Hg] Mishel Neelima PA-C Work Phone: [facility] 01-27-2025 13:08-0400 Heart rate 98 /min Mishel Neelima PA-C Work Phone: [facility] 01-27-2025 13:08-0400 Systolic blood pressure 134 mm[Hg] Mishel Neelima PA-C Work Phone: [facility] 11-11-2024 10:18-0400 Body height 175.3 cm Leticia Islase DO Work Phone: [facility] 11-11-2024 10:18-0400 Body mass index (BMI) [Ratio] 25.07 kg/m2 Leticia Hylton DO Work Phone: [facility] 11-11-2024 10:18-0400 Body weight 77 kg Leticia Islase DO Work Phone: [facility] 11-11-2024 10:18-0400 Diastolic blood pressure 66 mm[Hg] Leticia Hylton DO Work Phone: [facility] 11-11-2024 10:18-0400 Heart rate 107 /min Leticia Islase DO Work Phone: [facility] 11-11-2024 10:18-0400 Systolic blood pressure 103 mm[Hg] Leticia Hylton DO Work Phone: [facility] 07-10-2024 11:25-0500 Body height 172.7 cm Jason Paredes MD Work Phone: [facility] 07-10-2024 11:25-0500 Body mass index (BMI) [Ratio] 26 kg/m2 Jason Paredes MD Work Phone: [facility] 07-10-2024 11:25-0500 Body weight 77.56 kg Jason Paredes MD Work Phone: [facility] 07-10-2024 11:25-0500 Diastolic blood pressure 68 mm[Hg] Jason Paredes MD Work Phone: [facility] 07-10-2024 11:25-0500 Systolic blood pressure 112 mm[Hg] Jason Paredes MD Work Phone: [facility] 03-12-2024 13:58-0400 Body height 175.3 cm Kvng Lewis MD Work Phone: [facility] 03-12-2024 13:58-0400 Body mass index (BMI) [Ratio] 25.39 kg/m2 Kvng Lewis MD Work Phone: [facility] 03-12-2024 13:58-0400 Body weight 78 kg Kvng Lewis MD Work Phone: [facility] 03-12-2024 13:58-0400 Diastolic blood pressure 58 mm[Hg] Kvng Lewis MD Work Phone: [facility] 03-12-2024 13:58-0400 Heart rate 69 /min Kvng Lewis MD Work Phone: [facility] 03-12-2024 13:58-0400 SaO2% (BldA) [Mass fraction] 97 % Kvng Lewis MD Work Phone: [facility] 03-12-2024 13:58-0400 Systolic blood pressure 100 mm[Hg] Kvng Lewis MD Work Phone: [facility] 12-13-2023 15:12-0400 Body weight 77.11 kg Jessica Guerrero APRN.CNP Work Phone: [facility] 12-13-2023 15:12-0400 Diastolic blood pressure 87 mm[Hg] Jessica Avery COMPUTER SYSTEMS TECHNOLOGY INSTRUCTOR.TECHNICAL PROGRAMS MANAGER Work Phone: [facility] 12-13-2023 15:12-0400 Heart rate 80 /min Jessica Avery COMPUTER SYSTEMS TECHNOLOGY INSTRUCTOR.TECHNICAL PROGRAMS MANAGER Work Phone: [facility] 12-13-2023 15:12-0400 Respiratory rate 16 /min Jessica Avery COMPUTER SYSTEMS TECHNOLOGY INSTRUCTOR.TECHNICAL PROGRAMS MANAGER Work Phone: [facility] 12-13-2023 15:12-0400 Systolic blood pressure 139 mm[Hg] Jessica Avery COMPUTER SYSTEMS TECHNOLOGY INSTRUCTOR.TECHNICAL PROGRAMS MANAGER Work Phone: [facility] 12-07-2023 17:30-0400 Body height 175.26 cm No Primary Care Physician [facility] 12-07-2023 17:30-0400 Body temperature 97.1 [degF] No Primary Care Physician [facility] 12-07-2023 17:30-0400 Diastolic blood pressure 70 mm[Hg] No Primary Care Physician [facility] 12-07-2023 17:30-0400 Heart rate 68 /min No Primary Care Physician [facility] 12-07-2023 17:30-0400 Respiratory rate 15 /min No Primary Care Physician [facility] 12-07-2023 17:30-0400 SaO2% (BldA) [Mass fraction] 98 % No Primary Care Physician [facility] 12-07-2023 17:30-0400 Systolic blood pressure 130 mm[Hg] No Primary Care Physician [facility] 10-25-2023 22:04-0500 Body temperature 97.4 [degF] No Primary Care Physician [facility] 10-25-2023 22:04-0500 Diastolic blood pressure 64 mm[Hg] No Primary Care Physician [facility] 10-25-2023 22:04-0500 Heart rate 77 /min No Primary Care Physician [facility] 10-25-2023 22:04-0500 Respiratory rate 19 /min No Primary Care Physician [facility] 10-25-2023 22:04-0500 SaO2% (BldA) [Mass fraction] 100 % No Primary Care Physician [facility] 10-25-2023 22:04-0500 Systolic blood pressure 117 mm[Hg] No Primary Care Physician [facility] 10-25-2023 17:12-0500 Body mass index (BMI) [Ratio] 23.3 kg/m2 No Primary Care Physician [facility] 10-25-2023 17:12-0500 Body weight 71.7 kg No Primary Care Physician [facility] 10-25-2023 16:24-0500 Body height 175.26 cm No Primary Care Physician [facility] 10-18-2023 10:00-0500 Diastolic blood pressure 71 mm[Hg] No Primary Care Physician [facility] 10-18-2023 10:00-0500 Heart rate 62 /min No Primary Care Physician [facility] 10-18-2023 10:00-0500 Respiratory rate 16 /min No Primary Care Physician [facility] 10-18-2023 10:00-0500 SaO2% (BldA) [Mass fraction] 99 % No Primary Care Physician [facility] 10-18-2023 10:00-0500 Systolic blood pressure 115 mm[Hg] No Primary Care Physician [facility] 10-18-2023 08:00-0500 Body temperature 97.9 [degF] No Primary Care Physician [facility] 10-18-2023 05:28-0500 Body mass index (BMI) [Ratio] 24.6 kg/m2 No Primary Care Physician [facility] 10-18-2023 05:28-0500 Body weight 75.6 kg No Primary Care Physician [facility] 10-17-2023 15:25-0500 Body height 175.26 cm No Primary Care Physician [facility] 10-17-2023 11:51-0500 Body temperature 97.6 [degF] No Primary Care Physician [facility] 10-17-2023 11:51-0500 Diastolic blood pressure 58 mm[Hg] No Primary Care Physician [facility] 10-17-2023 11:51-0500 Heart rate 85 /min No Primary Care Physician [facility] 10-17-2023 11:51-0500 Respiratory rate 18 /min No Primary Care Physician [facility] 10-17-2023 11:51-0500 SaO2% (BldA) [Mass fraction] 98 % No Primary Care Physician [facility] 10-17-2023 11:51-0500 Systolic blood pressure 116 mm[Hg] No Primary Care Physician [facility] 10-17-2023 09:57-0500 Body height 175.26 cm No Primary Care Physician [facility] 10-17-2023 09:57-0500 Body mass index (BMI) [Ratio] 24.7 kg/m2 No Primary Care Physician [facility] 10-17-2023 09:57-0500 Body weight 76.2 kg No Primary Care Physician [facility] 09-25-2023 11:05-0500 Body temperature 97.6 [degF] No Primary Care Physician [facility] 09-25-2023 11:05-0500 Heart rate 76 /min No Primary Care Physician [facility] 09-25-2023 11:05-0500 Respiratory rate 14 /min No Primary Care Physician [facility] 09-25-2023 11:05-0500 SaO2% (BldA) [Mass fraction] 99 % No Primary Care Physician [facility] 09-25-2023 08:08-0500 Body mass index (BMI) [Ratio] 24.1 kg/m2 No Primary Care Physician [facility] 09-25-2023 08:08-0500 Body weight 74.19 kg No Primary Care Physician [facility] 09-25-2023 08:08-0500 Diastolic blood pressure 79 mm[Hg] No Primary Care Physician [facility] 09-25-2023 08:08-0500 Systolic blood pressure 140 mm[Hg] No Primary Care Physician [facility] 09-24-2023 20:19-0500 Body temperature 97 [degF] No Primary Care Physician [facility] 09-24-2023 20:19-0500 Diastolic blood pressure 66 mm[Hg] No Primary Care Physician [facility] 09-24-2023 20:19-0500 Heart rate 96 /min No Primary Care Physician [facility] 09-24-2023 20:19-0500 Respiratory rate 16 /min No Primary Care Physician [facility] 09-24-2023 20:19-0500 SaO2% (BldA) [Mass fraction] 97 % No Primary Care Physician [facility] 09-24-2023 20:19-0500 Systolic blood pressure 125 mm[Hg] No Primary Care Physician [facility] 09-24-2023 17:48-0500 Body height 175.26 cm No Primary Care Physician [facility] 09-24-2023 17:48-0500 Body mass index (BMI) [Ratio] 24.3 kg/m2 No Primary Care Physician [facility] 09-24-2023 17:48-0500 Body weight 74.7 kg No Primary Care Physician [facility] 09-20-2023 15:35-0500 Diastolic blood pressure 79 mm[Hg] No Primary Care Physician [facility] 09-20-2023 15:35-0500 Heart rate 79 /min No Primary Care Physician [facility] 09-20-2023 15:35-0500 Respiratory rate 16 /min No Primary Care Physician [facility] 09-20-2023 15:35-0500 SaO2% (BldA) [Mass fraction] 97 % No Primary Care Physician [facility] 09-20-2023 15:35-0500 Systolic blood pressure 107 mm[Hg] No Primary Care Physician [facility] 09-20-2023 10:21-0500 Body mass index (BMI) [Ratio] 25.9 kg/m2 No Primary Care Physician [facility] 09-20-2023 10:21-0500 Body temperature 97.9 [degF] No Primary Care Physician [facility] 09-20-2023 10:21-0500 Body weight 79.9 kg No Primary Care Physician [facility] 09-06-2023 21:32-0500 Heart rate 78 /min No Primary Care Physician [facility] 09-06-2023 21:32-0500 Respiratory rate 18 /min No Primary Care Physician [facility] 09-06-2023 21:32-0500 SaO2% (BldA) [Mass fraction] 99 % No Primary Care Physician [facility] 09-06-2023 21:30-0500 Diastolic blood pressure 72 mm[Hg] No Primary Care Physician [facility] 09-06-2023 21:30-0500 Systolic blood pressure 118 mm[Hg] No Primary Care Physician [facility] 09-06-2023 18:31-0500 Body mass index (BMI) [Ratio] 25.3 kg/m2 No Primary Care Physician [facility] 09-06-2023 18:31-0500 Body temperature 98.2 [degF] No Primary Care Physician [facility] 09-06-2023 18:31-0500 Body weight 77.9 kg No Primary Care Physician [facility] 08-22-2023 06:14-0500 Diastolic blood pressure 63 mm[Hg] No Primary Care Physician [facility] 08-22-2023 06:14-0500 Heart rate 64 /min No Primary Care Physician [facility] 08-22-2023 06:14-0500 Respiratory rate 16 /min No Primary Care Physician [facility] 08-22-2023 06:14-0500 SaO2% (BldA) [Mass fraction] 97 % No Primary Care Physician [facility] 08-22-2023 06:14-0500 Systolic blood pressure 99 mm[Hg] No Primary Care Physician [facility] 08-22-2023 02:45-0500 Body height 175.26 cm No Primary Care Physician [facility] 08-22-2023 02:45-0500 Body mass index (BMI) [Ratio] 26.4 kg/m2 No Primary Care Physician [facility] 08-22-2023 02:45-0500 Body temperature 98.7 [degF] No Primary Care Physician [facility] 08-22-2023 02:45-0500 Body weight 81.2 kg No Primary Care Physician [facility] 08-10-2023 08:00-0500 Body temperature 98.1 [degF] No Primary Care Physician [facility] 08-10-2023 08:00-0500 Diastolic blood pressure 71 mm[Hg] No Primary Care Physician [facility] 08-10-2023 08:00-0500 Heart rate 65 /min No Primary Care Physician [facility] 08-10-2023 08:00-0500 Respiratory rate 15 /min No Primary Care Physician [facility] 08-10-2023 08:00-0500 SaO2% (BldA) [Mass fraction] 97 % No Primary Care Physician [facility] 08-10-2023 08:00-0500 Systolic blood pressure 109 mm[Hg] No Primary Care Physician [facility] 08-10-2023 05:07-0500 Body mass index (BMI) [Ratio] 25.9 kg/m2 No Primary Care Physician [facility] 08-10-2023 05:07-0500 Body weight 79.9 kg No Primary Care Physician [facility] 08-07-2023 10:46-0500 Body height 175.26 cm No Primary Care Physician [facility] 08-07-2023 00:45-0500 Diastolic blood pressure 41 mm[Hg] No Primary Care Physician [facility] 08-07-2023 00:45-0500 Heart rate 114 /min No Primary Care Physician [facility] 08-07-2023 00:45-0500 Respiratory rate 18 /min No Primary Care Physician [facility] 08-07-2023 00:45-0500 SaO2% (BldA) [Mass fraction] 99 % No Primary Care Physician [facility] 08-07-2023 00:45-0500 Systolic blood pressure 136 mm[Hg] No Primary Care Physician [facility] 08-06-2023 21:33-0500 Body height 175.26 cm No Primary Care Physician [facility] 08-06-2023 21:33-0500 Body mass index (BMI) [Ratio] 25.9 kg/m2 No Primary Care Physician [facility] 08-06-2023 21:33-0500 Body temperature 97.8 [degF] No Primary Care Physician [facility] 08-06-2023 21:33-0500 Body weight 79.8 kg No Primary Care Physician [facility] 08-06-2023 14:00-0500 Respiratory rate 16 /min No Primary Care Physician [facility] 08-06-2023 08:53-0500 Body height 175.26 cm No Primary Care Physician [facility] 08-06-2023 08:53-0500 Body mass index (BMI) [Ratio] 26.3 kg/m2 No Primary Care Physician [facility] 08-06-2023 08:53-0500 Body temperature 97.6 [degF] No Primary Care Physician [facility] 08-06-2023 08:53-0500 Body weight 80.8 kg No Primary Care Physician [facility] 08-06-2023 08:53-0500 Diastolic blood pressure 83 mm[Hg] No Primary Care Physician [facility] 08-06-2023 08:53-0500 Heart rate 115 /min No Primary Care Physician [facility] 08-06-2023 08:53-0500 SaO2% (BldA) [Mass fraction] 97 % No Primary Care Physician [facility] 08-06-2023 08:53-0500 Systolic blood pressure 126 mm[Hg] No Primary Care Physician [facility] 06-26-2023 02:56-0400 Diastolic blood pressure 48 mm[Hg] No Primary Care Physician [facility] 06-26-2023 02:56-0400 Systolic blood pressure 96 mm[Hg] No Primary Care Physician [facility] 06-26-2023 01:13-0400 Heart rate 80 /min No Primary Care Physician [facility] 06-26-2023 01:13-0400 Respiratory rate 18 /min No Primary Care Physician [facility] 06-26-2023 01:13-0400 SaO2% (BldA) [Mass fraction] 97 % No Primary Care Physician [facility] 06-25-2023 23:14-0400 Body height 175.26 cm No Primary Care Physician [facility] 06-25-2023 23:14-0400 Body mass index (BMI) [Ratio] 26.5 kg/m2 No Primary Care Physician [facility] 06-25-2023 23:14-0400 Body temperature 97.4 [degF] No Primary Care Physician [facility] 06-25-2023 23:14-0400 Body weight 81.6 kg No Primary Care Physician [facility] 06-25-2023 11:37-0400 Heart rate 82 /min No Primary Care Physician [facility] 06-25-2023 11:37-0400 Respiratory rate 16 /min No Primary Care Physician [facility] 06-25-2023 11:37-0400 SaO2% (BldA) [Mass fraction] 97 % No Primary Care Physician [facility] 06-25-2023 08:21-0400 Body height 175.01 cm No Primary Care Physician [facility] 06-25-2023 08:21-0400 Body mass index (BMI) [Ratio] 25.8 kg/m2 No Primary Care Physician [facility] 06-25-2023 08:21-0400 Body temperature 97.4 [degF] No Primary Care Physician [facility] 06-25-2023 08:21-0400 Body weight 79.06 kg No Primary Care Physician [facility] 06-25-2023 08:21-0400 Diastolic blood pressure 45 mm[Hg] No Primary Care Physician [facility] 06-25-2023 08:21-0400 Systolic blood pressure 136 mm[Hg] No Primary Care Physician [facility] 05-31-2023 15:02-0400 Body weight 78.47 kg Jessica Avery COMPUTER SYSTEMS TECHNOLOGY INSTRUCTOR.TECHNICAL PROGRAMS MANAGER Work Phone: [facility] 05-31-2023 15:02-0400 Diastolic blood pressure 60 mm[Hg] Jessica Avery COMPUTER SYSTEMS TECHNOLOGY INSTRUCTOR.TECHNICAL PROGRAMS MANAGER Work Phone: [facility] 05-31-2023 15:02-0400 Heart rate 91 /min Jessica Avery COMPUTER SYSTEMS TECHNOLOGY INSTRUCTOR.TECHNICAL PROGRAMS MANAGER Work Phone: [facility] 05-31-2023 15:02-0400 Respiratory rate 18 /min Jessica Avery COMPUTER SYSTEMS TECHNOLOGY INSTRUCTOR.TECHNICAL PROGRAMS MANAGER Work Phone: [facility] 05-31-2023 15:02-0400 Systolic blood pressure 92 mm[Hg] Jessica Avery COMPUTER SYSTEMS TECHNOLOGY INSTRUCTOR.TECHNICAL PROGRAMS MANAGER Work Phone: [facility] 05-03-2023 09:00-0400 Respiratory rate 16 /min No Primary Care Physician [facility] 05-03-2023 04:23-0400 Body height 175.26 cm No Primary Care Physician [facility] 05-03-2023 04:23-0400 Body mass index (BMI) [Ratio] 26.9 kg/m2 No Primary Care Physician [facility] 05-03-2023 04:23-0400 Body temperature 97.7 [degF] No Primary Care Physician [facility] 05-03-2023 04:23-0400 Body weight 82.8 kg No Primary Care Physician [facility] 05-03-2023 04:23-0400 Diastolic blood pressure 68 mm[Hg] No Primary Care Physician [facility] 05-03-2023 04:23-0400 Heart rate 89 /min No Primary Care Physician [facility] 05-03-2023 04:23-0400 SaO2% (BldA) [Mass fraction] 97 % No Primary Care Physician [facility] 05-03-2023 04:23-0400 Systolic blood pressure 121 mm[Hg] No Primary Care Physician [facility] 04-29-2023 14:12-0400 Body temperature 98.3 [degF] No Primary Care Physician [facility] 04-29-2023 14:12-0400 Diastolic blood pressure 61 mm[Hg] No Primary Care Physician [facility] 04-29-2023 14:12-0400 Heart rate 62 /min No Primary Care Physician [facility] 04-29-2023 14:12-0400 Respiratory rate 18 /min No Primary Care Physician [facility] 04-29-2023 14:12-0400 SaO2% (BldA) [Mass fraction] 98 % No Primary Care Physician [facility] 04-29-2023 14:12-0400 Systolic blood pressure 132 mm[Hg] No Primary Care Physician [facility] 04-28-2023 12:55-0400 Body height 175.26 cm No Primary Care Physician [facility] 04-28-2023 12:55-0400 Body weight 78.69 kg No Primary Care Physician [facility] 04-27-2023 17:02-0400 Body mass index (BMI) [Ratio] 25.6 kg/m2 No Primary Care Physician [facility] 04-27-2023 16:45-0400 Diastolic blood pressure 61 mm[Hg] [facility] 04-27-2023 16:45-0400 Respiratory rate 18 /min [facility] 04-27-2023 16:45-0400 Systolic blood pressure 118 mm[Hg] [facility] 04-27-2023 16:13-0400 Body temperature 97.8 [degF] [facility] 04-27-2023 16:13-0400 Heart rate 90 /min [facility] 04-27-2023 13:23-0400 SaO2% (BldA) [Mass fraction] 96 % [facility] 04-27-2023 09:26-0400 Body height 175.[address] [facility] 04-27-2023 09:26-0400 Body mass index (BMI) [Ratio] 28.1 kg/m2 [facility] 04-27-2023 09:26-0400 Body weight 86.[address] [facility] 04-26-2023 23:47-0400 Respiratory rate 22 /min [facility] 04-26-2023 22:00-0400 Heart rate 81 /min [facility] 04-26-2023 22:00-0400 SaO2% (BldA) [Mass fraction] 97 % [facility] 04-26-2023 21:29-0400 Diastolic blood pressure 82 mm[Hg] [facility] 04-26-2023 21:29-0400 Systolic blood pressure 115 mm[Hg] [facility] 04-26-2023 20:25-0400 Body height 175.[address] [facility] 04-26-2023 20:25-0400 Body mass index (BMI) [Ratio] 25.4 kg/m2 [facility] 04-26-2023 20:25-0400 Body temperature 98.6 [degF] [facility] 04-26-2023 20:25-0400 Body weight 78.[address] [facility] 04-23-2023 13:00-0400 Respiratory rate 16 /min [facility] 04-23-2023 11:40-0400 Heart rate 52 /min [facility] 04-23-2023 08:33-0400 Body mass index (BMI) [Ratio] 26.9 kg/m2 [facility] 04-23-2023 08:33-0400 Body temperature 97.6 [degF] [facility] 04-23-2023 08:33-0400 Body weight 82.[address] [facility] 04-23-2023 08:33-0400 Diastolic blood pressure 77 mm[Hg] [facility] 04-23-2023 08:33-0400 SaO2% (BldA) [Mass fraction] 96 % [facility] 04-23-2023 08:33-0400 Systolic blood pressure 123 mm[Hg] [facility] 03-22-2023 11:23-0400 Body temperature 98.1 [degF] Benito Jewell MD Work Phone: [facility] 03-22-2023 11:23-0400 Diastolic blood pressure 72 mm[Hg] Benito Jewell MD Work Phone: [facility] 03-22-2023 11:23-0400 Heart rate 61 /min Benito Jewell MD Work Phone: [facility] 03-22-2023 11:23-0400 Respiratory rate 16 /min Benito Jewell MD Work Phone: [facility] 03-22-2023 11:23-0400 SaO2% (BldA) [Mass fraction] 96 % Benito Jewell MD Work Phone: [facility] 03-22-2023 11:23-0400 Systolic blood pressure 116 mm[Hg] Benito Jewell MD Work Phone: [facility] 03-20-2023 03:02-0400 Body height 175.3 cm Benito Jewell MD Work Phone: [facility] 03-20-2023 03:02-0400 Body mass index (BMI) [Ratio] 26.73 kg/m2 Benito Jewell MD Work Phone: [facility] 03-20-2023 03:02-0400 Body weight 82.1 kg Benito Jewell MD Work Phone: [facility] 01-25-2023 14:02-0400 Body weight 83.92 kg Autumn Valadez APRN.TECHNICAL PROGRAMS MANAGER Work Phone: [facility] 01-25-2023 14:02-0400 Diastolic blood pressure 64 mm[Hg] Autumn Valadez APRN.TECHNICAL PROGRAMS MANAGER Work Phone: [facility] 01-25-2023 14:02-0400 Heart rate 73 /min Autumn Valadez APRN.TECHNICAL PROGRAMS MANAGER Work Phone: [facility] 01-25-2023 14:02-0400 Respiratory rate 18 /min Autumn Valadez APRN.TECHNICAL PROGRAMS MANAGER Work Phone: [facility] 01-25-2023 14:02-0400 Systolic blood pressure 129 mm[Hg] Autumn Valadez APRN.TECHNICAL PROGRAMS MANAGER Work Phone: [facility] 12-08-2022 14:10-0400 Body height 175.3 cm Vivi Smith MD Work Phone: [facility] 12-08-2022 14:10-0400 Body temperature 97 [degF] Vivi Smith MD Work Phone: [facility] 12-08-2022 14:10-0400 Body weight 85 kg Vivi Smith MD Work Phone: [facility] 12-08-2022 14:10-0400 Diastolic blood pressure 86 mm[Hg] Vivi Smith MD Work Phone: [facility] 12-08-2022 14:10-0400 Heart rate 90 /min Vivi Smith MD Work Phone: [facility] 12-08-2022 14:10-0400 Respiratory rate 20 /min Vivi Smith MD Work Phone: [facility] 12-08-2022 14:10-0400 SaO2% (BldA) [Mass fraction] 98 % Vivi Smith MD Work Phone: [facility] 12-08-2022 14:10-0400 Systolic blood pressure 142 mm[Hg] Vivi Smith MD Work Phone: [facility] 11-07-2022 14:00-0400 Body temperature 97.3 [degF] Abelardo La MD Work Phone: [facility] 11-07-2022 14:00-0400 Body weight 90.72 kg Abelardo La MD Work Phone: [facility] 11-07-2022 14:00-0400 Diastolic blood pressure 72 mm[Hg] Abelardo La MD Work Phone: [facility] 11-07-2022 14:00-0400 Heart rate 94 /min Abelardo La MD Work Phone: [facility] 11-07-2022 14:00-0400 Respiratory rate 16 /min Abelardo La MD Work Phone: [facility] 11-07-2022 14:00-0400 SaO2% (BldA) [Mass fraction] 95 % Abelardo La MD Work Phone: [facility] 11-07-2022 14:00-0400 Systolic blood pressure 129 mm[Hg] Abelardo La MD Work Phone: [facility] 10-22-2022 16:14-0500 Body temperature 99.5 [degF] Abelardo La MD Work Phone: [facility] 10-22-2022 16:14-0500 Body weight 86.18 kg Abelardo La MD Work Phone: [facility] 10-22-2022 16:14-0500 Diastolic blood pressure 96 mm[Hg] Abelardo La MD Work Phone: [facility] 10-22-2022 16:14-0500 Heart rate 143 /min Abelardo La MD Work Phone: [facility] 10-22-2022 16:14-0500 Respiratory rate 20 /min Abelardo La MD Work Phone: [facility] 10-22-2022 16:14-0500 SaO2% (BldA) [Mass fraction] 94 % Abelardo La MD Work Phone: [facility] 10-22-2022 16:14-0500 Systolic blood pressure 150 mm[Hg] Abelardo La MD Work Phone: [facility] 09-19-2022 13:18-0500 Body temperature 97.5 [degF] Injection/[facility] 09-19-2022 13:18-0500 Diastolic blood pressure 62 mm[Hg] Injection/[facility] 09-19-2022 13:18-0500 Heart rate 50 /min Injection/[facility] 09-19-2022 13:18-0500 Respiratory rate 18 /min Injection/[facility] 09-19-2022 13:18-0500 Systolic blood pressure 123 mm[Hg] Injection/[facility] 08-16-2022 15:14-0500 Body weight 87.09 kg Autumn Valadez COMPUTER SYSTEMS TECHNOLOGY INSTRUCTOR.TECHNICAL PROGRAMS MANAGER Work Phone: [facility] 08-16-2022 15:14-0500 Diastolic blood pressure 58 mm[Hg] Autumn Damonssler COMPUTER SYSTEMS TECHNOLOGY INSTRUCTOR.TECHNICAL PROGRAMS MANAGER Work Phone: [facility] 08-16-2022 15:14-0500 Heart rate 68 /min Autumn Valadez COMPUTER SYSTEMS TECHNOLOGY INSTRUCTOR.TECHNICAL PROGRAMS MANAGER Work Phone: [facility] 08-16-2022 15:14-0500 SaO2% (BldA) [Mass fraction] 95 % Autumn Valadez COMPUTER SYSTEMS TECHNOLOGY INSTRUCTOR.TECHNICAL PROGRAMS MANAGER Work Phone: [facility] 08-16-2022 15:14-0500 Systolic blood pressure 113 mm[Hg] Autumn Damonssler COMPUTER SYSTEMS TECHNOLOGY INSTRUCTOR.TECHNICAL PROGRAMS MANAGER Work Phone: [facility] 08-05-2022 11:37-0500 Body temperature 97.2 [degF] Injection/[facility] 08-05-2022 11:37-0500 Diastolic blood pressure 70 mm[Hg] Injection/[facility] 08-05-2022 11:37-0500 Heart rate 68 /min Injection/[facility] 08-05-2022 11:37-0500 Respiratory rate 18 /min Injection/[facility] 08-05-2022 11:37-0500 Systolic blood pressure 119 mm[Hg] Injection/[facility] 06-07-2022 14:14-0400 Body height 175.3 cm Phoebe COMPUTER SYSTEMS TECHNOLOGY INSTRUCTOR.TECHNICAL PROGRAMS MANAGER Work Phone: [facility] 06-07-2022 14:14-0400 Body weight 82.33 kg Phoebe er COMPUTER SYSTEMS TECHNOLOGY INSTRUCTOR.TECHNICAL PROGRAMS MANAGER Work Phone: [facility] 06-07-2022 14:14-0400 Diastolic blood pressure 70 mm[Hg] Phoebe er COMPUTER SYSTEMS TECHNOLOGY INSTRUCTOR.TECHNICAL PROGRAMS MANAGER Work Phone: [facility] 06-07-2022 14:14-0400 Systolic blood pressure 118 mm[Hg] Phoebe Mckeon COMPUTER SYSTEMS TECHNOLOGY INSTRUCTOR.TECHNICAL PROGRAMS MANAGER Work Phone: [facility] 04-18-2022 08:13-0400 Body height 175.3 cm Dishon Kamwesa COMPUTER SYSTEMS TECHNOLOGY INSTRUCTOR.TECHNICAL PROGRAMS MANAGER Work Phone: [facility] 04-18-2022 08:13-0400 Body temperature 96.91 [degF] Dishon Kamwesa COMPUTER SYSTEMS TECHNOLOGY INSTRUCTOR.TECHNICAL PROGRAMS MANAGER Work Phone: [facility] 04-18-2022 08:13-0400 Body weight 81.65 kg Dishon Kamwesa COMPUTER SYSTEMS TECHNOLOGY INSTRUCTOR.TECHNICAL PROGRAMS MANAGER Work Phone: [facility] 04-18-2022 08:13-0400 Diastolic blood pressure 72 mm[Hg] Dishon Kamwesa COMPUTER SYSTEMS TECHNOLOGY INSTRUCTOR.TECHNICAL PROGRAMS MANAGER Work Phone: [facility] 04-18-2022 08:13-0400 Heart rate 78 /min Dishon Kamwesa COMPUTER SYSTEMS TECHNOLOGY INSTRUCTOR.TECHNICAL PROGRAMS MANAGER Work Phone: [facility] 04-18-2022 08:13-0400 SaO2% (BldA) [Mass fraction] 97 % Dishon Kamwesa COMPUTER SYSTEMS TECHNOLOGY INSTRUCTOR.TECHNICAL PROGRAMS MANAGER Work Phone: [facility] 04-18-2022 08:13-0400 Systolic blood pressure 120 mm[Hg] Dishon Kamwesa COMPUTER SYSTEMS TECHNOLOGY INSTRUCTOR.TECHNICAL PROGRAMS MANAGER Work Phone: [facility] 03-11-2022 12:07-0400 Body temperature 96.8 [degF] [facility] 03-11-2022 12:07-0400 Diastolic blood pressure 51 mm[Hg] [facility] 03-11-2022 12:07-0400 Heart rate 55 /min [facility] 03-11-2022 12:07-0400 Respiratory rate 16 /min [facility] 03-11-2022 12:07-0400 Systolic blood pressure 101 mm[Hg] [facility] 03-07-2022 14:00-0400 Body temperature 96.91 [degF] Injection/[facility] 03-07-2022 14:00-0400 Diastolic blood pressure 65 mm[Hg] Injection/[facility] 03-07-2022 14:00-0400 Heart rate 83 /min Injection/[facility] 03-07-2022 14:00-0400 Respiratory rate 16 /min Injection/[facility] 03-07-2022 14:00-0400 Systolic blood pressure 124 mm[Hg] Injection/[facility] 12-28-2021 16:16-0400 Body temperature 97.88 [degF] ANITA COMER MD [facility] 12-28-2021 16:16-0400 Diastolic blood pressure 81 mm[Hg] ANITA COMER MD [facility] 12-28-2021 16:16-0400 Heart rate 78 /min ANITA COMER MD [facility] 12-28-2021 16:16-0400 Respiratory rate 20 /min ANITA COMER MD [facility] 12-28-2021 16:16-0400 Systolic blood pressure 134 mm[Hg] ANITA COMER MD [facility] 05-31-2021 20:30-0400 SaO2% (BldA) [Mass fraction] 100 % [facility] Comment on above: Order Comment: Kyle: M Performed By: #### [id number] ####[facility] [id number] [place], [place] [address]Kq# [phone] Encounters Encounter Date Encounter Type Care Provider Facility Start: 03-06-2025 ambulatory Dangelo Encarnacion Fac ility:[facility] Start: 03-06-2025 End: 03-08-2025 Evaluation and management of inpatient Dangelo Encarnacion Facility:[facility] Start: 03-05-2025 End: 03-05-2025 ambulatory Zebulun Beam VSC Facility:[facility] Start: 02-25-2025 End: 02-25-2025 ambulatory Zebulun Beam VSC Facility:[facility] Start: 02-18-2025 ambulatory Zebulun Beam VSC Facili ty:[facility] Start: 02-18-2025 End: 02-19-2025 Evaluation and management of inpatient Zebulun Beam VSC Facility:[facility] Start: 02-03-2025 End: 02-03-2025 ambulatory Zebulun Beam VSC Facility:[facility] Start: 01-27-2025 End: 01-27-2025 Office outpatient visit 25 minutes Mishel Ortez PA-C Work Phone: [facility] Comment on above: Psoriasis vulgaris ( Primary Dx); Folliculitis; Multiple benign melanocytic nevi of both upper extremities, both lower extremities, and trunk; Seborrheic keratosis; Solar lentigo; Dermatofibroma; Cody angioma; Screening for viral disease; Encounter for screening for respiratory tuberculosis; Encounter for long-term (current) use of medications Start: 01-27-2025 End: 01-27-2025 [facility] Start: 01-22-2025 ambulatory Zebulun Beam VSC Facili ty:[facility] Start: 01-22-2025 End: 01-26-2025 Evaluation and management of inpatient Zebulun Beam VSC Facility:[facility] Start: 01-08-2025 End: 01-08-2025 ambulatory Zebulun Beam VSC Facility:[facility] Start: 01-07-2025 End: 01-08-2025 Refill Mishel Ortez PA-C Work Phone: [facility] Start: 12-25-2024 End: 12-25-2024 ambulatory Zebulun Beam VSC Facility:[facility] Start: 12-19-2024 End: 12-23-2024 Telephone encounter Manasa Cantu PA-C Work Phone: [facility] Comment on above: Appointment Request (rayray) Start: 12-14-2024 End: 12-16-2024 ambulatory Dangelo Encarnacion Facility:[facility] Start: 11-28-2024 End: 11-28-2024 ambulatory No Primary Care Physician Facility:[facility] Start: 11-11-2024 End: 11-11-2024 Telephone encounter Leticia Hylton DO Work Phone: Gastroenterology Start: 11-11-2024 End: 11-11-2024 Subsequent hospital visit by physician [facility] Comment on above: Chronic idiopathic c onstipation [K59.04] Start: 11-11-2024 End: 11-11-2024 ambulatory LETICIA HYLTON Facility:[facility] Start: 11-11-2024 End: 11-11-2024 Patient encounter procedure Leticia Hylton DO Work Phone: Gastroenterology Comment on above: Chronic idiopathic c onstipation (Primary Dx); Abdominal pain, suprapubic Start: 11-05-2024 ambulatory No Primary Car e Physician Facility:[facility] Start: 11-05-2024 End: 11-06-2024 Evaluation and management of inpatient John Knapp Facility:[facility] Start: 11-05-2024 End: 11-05-2024 Telephone encounter Leticia Hylton DO Work Phone: Gastroenterology Comment on above: Patient states havin g major issues Start: 11-03-2024 End: 11-04-2024 Emergency department patient visit No Primary Care Physician Facility:[facility] Start: 10-18-2024 End: 10-21-2024 ambulatory Ramya Lombardo Facility:[facility] Start: 10-02-2024 End: 10-10-2024 Telephone encounter Jessica Guerrero APRN.TECHNICAL PROGRAMS MANAGER Work Phone: Endocrinology Comment on above: Forms Start: 09-02-2024 End: 09-02-2024 Emergency department patient visit No Primary Care Physician Facility:[facility] Start: 09-02-2024 End: 09-02-2024 ambulatory Leticia Hylton DO Work Phone: Gastroenterology Comment on above: Chronic idiopathic c onstipation (Primary Dx); Gastroparesis Start: 09-02-2024 End: 09-02-2024 Telemedicine consultation with patient Leticia Hylton DO Work Phone: Gastroenterology Start: 08-07-2024 End: 08-07-2024 Telephone encounter Manasa Cantu PA-C Work Phone: [facility] Comment on above: Prior Authorization (Skyrizi renewal) Start: 08-02-2024 ambulatory Vamsi Duvall Facili ty:[facility] Start: 08-02-2024 End: 08-03-2024 Evaluation and management of inpatient Vamsi Duvall Facility:[facility] Start: 08-01-2024 End: 08-01-2024 Emergency department patient visit No Primary Care Physician Facility:[facility] Start: 2024 End: 08-06-2024 ambulatory [facility] Facility:[facility] Start: 07-23-2024 End: 07-23-2024 ambulatory [facility] Facility:[facility] Start: 07-23-2024 End: 07-23-2024 Nursing evaluation of patient and report Vamsi Carson RN Work Phone: Endocrinology Comment on above: Type 1 diabetes kasi itus with hyperglycemia, with long-term current use of insulin (HCC); Insulin pump status Start: 07-19-2024 End: 07-30-2024 Telephone encounter Jessica Guerrero APRN.CNP Work Phone: Endocrinology Start: 07-19-2024 End: 07-19-2024 ambulatory Jessica Guerrero APRN.CNP Work Phone: Endocrinology Comment on above: Type 1 diabetes kasi itus with hyperglycemia, with long-term current use of insulin (HCC) (Primary Dx); Insulin pump status Start: 07-19-2024 End: 07-19-2024 Telemedicine consultation with patient Jessica Guerrero APRN.CNP Work Phone: Endocrinology Start: 07-11-2024 End: 07-27-2024 ambulatory [facility] Facility:[facility] Start: 07-10-2024 End: 07-10-2024 ambulatory VIVI IZAGUIRREAHIM Facility:[facility] Start: 07-10-2024 End: 07-10-2024 ambulatory VIVI BARAHONA SMITH Facility:[facility] Start: 07-10-2024 End: 07-10-2024 Patient encounter procedure Jason Paredes MD Work Phone: OB/Gynecology Comment on above: Encounter for gyneco logical examination (general) (routine) without abnormal findings (Primary Dx); Encounter for screening for malignant neoplasm of cervix; Screening for human papillomavirus (HPV); Irregular menstrual bleeding; Routine screening for STI (sexually transmitted infection) Start: 07-10-2024 End: 07-10-2024 Patient encounter status Jason Paredes MD Work Phone: [facility] Start: 06-28-2024 End: 07-05-2024 ambulatory [facility] Facility:[facility] Start: 06-24-2024 End: 06-25-2024 Telephone encounter Jessica Guerrero APRN.TECHNICAL PROGRAMS MANAGER Work Phone: [facility] [place] Comment on above: diabetic supplies Start: 06-17-2024 End: 06-17-2024 Telephone encounter Kvng Lewis MD Work Phone: Endocrinology Comment on above: Forms Start: 06-07-2024 ambulatory Kenyetta Suarez Facility:[facility] Start: 06-07-2024 End: 06-11-2024 Evaluation and management of inpatient John Knapp Facility:[facility] Start: 05-28-2024 End: 06-27-2024 ambulatory [facility] Facility:[facility] Start: 05-21-2024 End: 05-27-2024 ambulatory [facility] Facility:[facility] Start: 05-16-2024 End: 05-24-2024 Telephone encounter Jessica Guerrero APRN.TECHNICAL PROGRAMS MANAGER Work Phone: Endocrinology Comment on above: insulin pump Start: 05-06-2024 End: 05-06-2024 Telephone encounter Leesa Huddleston PA-C Work Phone: [facility] Dermat[facility] Comment on above: Prior Authorization (Skyrizi renewal) Start: 04-21-2024 End: 04-21-2024 Emergency department patient visit No Primary Care Physician Facility:[facility] Start: 04-16-2024 End: 04-16-2024 Refill Leesa Huddleston PA-C Work Phone: [facility] Start: 04-08-2024 Refill Jessica Guerrero APRN.TECHNICAL PROGRAMS MANAGER Work Phone: [facility] [place] Comment on above: Refill Request Start: 03-12-2024 End: 03-12-2024 ambulatory [facility] Facility:[facility] Start: 03-12-2024 End: 03-12-2024 Patient encounter procedure Kvng Lewis MD Work Phone: Endocrinology Comment on above: Type 1 diabetes kasi itus with hyperglycemia, with long-term current use of insulin (HCC) (Primary Dx); Insulin pump status Start: 03-02-2024 Telephone encounter Kvng Brink MD Work Phone: Endocrinology Comment on above: Forms Start: 02-14-2024 Telephone encounter Kvng Brink MD Work Phone: Endocrinology Comment on above: machine question Start: 02-13-2024 Telephone encounter Jenn Solo MD Work Phone: Endocrinology Comment on above: Medication Problem; Returning Patient's Call Start: 01-23-2024 Telephone encounter Leesa Huddleston PA-C Work Phone: [facility] Comment on above: Medication Problem ( Skyrizi) Start: 12-15-2023 ambulatory Kyara Wu [employer] Comment on above: Primary Care Coordin ator Chronic Care Start: 12-13-2023 End: 12-13-2023 ambulatory [facility] Facility:[facility] Start: 12-13-2023 End: 12-13-2023 Patient encounter procedure Jessica Guerrero APRN.CNP Work Phone: Endocrinology Comment on above: Type 1 diabetes kasi itus with hyperglycemia, with long-term current use of insulin (HCC) (Primary Dx); Insulin pump status Start: 12-07-2023 End: 12-07-2023 Emergency department patient visit No Primary Care Physician [facility] Work Phone: Start: 11-14-2023 End: 11-14-2023 Office outpatient visit 15 minutes Leesa Huddleston PA-C Work Phone: [facility] Derm[facility] Comment on above: Psoriasis vulgaris ( Primary Dx); Multiple benign nevi Start: 11-10-2023 Patient Outreach Kyara Wu [employer] Business Development Manager Comment on above: Transition Of Care Start: 11-03-2023 Patient Outreach Kyara Wu Ict Business Development Manager Comment on above: Transition Of Care Start: 10-27-2023 [facility] Out[facility] Comment on above: Transition Of Care Start: 10-25-2023 End: 10-25-2023 Emergency department patient visit No Primary Care Physician [facility] Work Phone: Start: 10-20-2023 Patient Outreach [facility] Comment on above: Transition Of Care Start: 10-19-2023 Patient Outreach [facility] Comment on above: Transition Of Care ( Message) Start: 10-18-2023 Non-patient / Non-visit No [facility] Physician [facility] Work Phone: Start: 10-17-2023 End: 10-18-2023 Evaluation and management of inpatient No Primary Care Physician [facility] Work Phone: Start: 10-12-2023 ambulatory [facility] Comment on above: Primary Care Coordin ator Chronic Care Start: 10-02-2023 Telephone encounter Kvng Brink MD Work Phone: Endocrinology Comment on above: Forms (DME: [employer] for pump supplies) Start: 09-29-2023 ambulatory Kyara Wu [employer] Business Development Manager Comment on above: Primary Care Coordin ator Chronic Care Start: 09-25-2023 End: 09-25-2023 Emergency department patient visit No Primary Care Physician [facility] Work Phone: Start: 09-24-2023 End: 09-24-2023 Emergency department patient visit [facility] Start: 09-21-2023 Refill Vivi Smith MD Work Phone: [facility] [place] Comment on above: Refill Request Start: 09-20-2023 End: 09-20-2023 Emergency department patient visit No [facility] Start: 09-06-2023 End: 09-06-2023 Emergency department patient visit No Primary Care Physician [facility] Work Phone: Start: 08-22-2023 End: 08-22-2023 Emergency department patient visit No Primary Care Physician [facility] Work Phone: Start: 08-17-2023 Telephone encounter Leesa Huddleston PA-C Work Phone: [facility] Dermat[facility] Start: 08-15-2023 Patient Outreach Kyara garza RN [facility] [employer] Business [employer] Manager Comment on above: Transition Of Care Start: 08-10-2023 Non-patient / Non-visit No Elaine caal [facility] Physician [facility] Inpatient Physicians Work Phone: Start: 08-09-2023 Non-patient / Non-visit No Elaine caal [facility] Physician [facility] In[facility] Physicians Work Phone: Start: 08-08-2023 Non-patient / Non-visit No Elaine caal [facility] Physician [facility] In[facility] Physicians Work Phone: Start: 08-07-2023 End: 08-10-2023 Evaluation and management of inpatient No [facility] Work Phone: Start: 08-06-2023 End: 08-06-2023 Emergency department patient visit No Primary Care Physician [facility] Work Phone: Start: 06-25-2023 End: 06-26-2023 Emergency department patient visit No Primary Care Physician [facility] Work Phone: Start: 06-25-2023 End: 06-25-2023 Emergency department patient visit No Primary Care Physician [facility] Work Phone: Start: 05-31-2023 End: 05-31-2023 Patient encounter procedure Jessica Josue HICKSN.TECHNICAL PROGRAMS MANAGER Work Phone: Endocrinology Comment on above: Type 1 diabetes ksai itus with hyperglycemia, with long-term current use of insulin (HCC) (Primary Dx); Insulin pump status Start: 05-03-2023 End: 05-03-2023 Emergency department patient visit No Primary Care Physician [facility] Department Work Phone: Start: 05-02-2023 Enedina swain PA-C Work Phone: [facility] Dermatology Comment on above: Psoriasis vulgaris ( Primary Dx) Start: 04-29-2023 Non-patient / Non-visit No [facility] Physician [facility] Phys[facility] Work Phone: Start: 04-28-2023 Non-patient / Non-visit No [facility] Physician [facility] Work Phone: Start: 04-27-2023 Non-patient / Non-visit No [facility] Physician [facility] Work Phone: Start: 04-27-2023 End: 04-29-2023 Evaluation and management of inpatient [facility] Surgical 3 Work Phone: Start: 04-27-2023 End: 04-29-2023 observation encounter No Primary Care Physician [facility] Work Phone: Start: 04-26-2023 End: 04-26-2023 Emergency department patient visit [facility] Work Phone: Start: 04-23-2023 End: 04-23-2023 Emergency department patient visit [facility] Work Phone: Start: 04-06-2023 End: 04-06-2023 Emergency department patient visit VIVI SMITH Facility:[id number] Start: 03-20-2023 End: 03-22-2023 ambulatory BENITO JEWELL [facility] Start: 03-20-2023 End: 03-22-2023 Emergency department patient visit Mariel Gagnon MD Work Phone: [facility] Start: 02-15-2023 Patient encounter procedure [facility] Department Start: 02-08-2023 Patient Outreach Kyara garza RN [facility]ct Business Development Manager Comment on above: Transition Of Care Start: 02-01-2023 Telephone encounter Vivi Smith MD Work Phone: [facility] Primary Comment on above: Results Start: 01-31-2023 End: 02-04-2023 Evaluation and management of inpatient VIVI SMITH Facility:[id number] Start: 01-25-2023 End: 01-25-2023 ambulatory VIVI SMITH Facility:[id number] Start: 01-25-2023 End: 01-25-2023 Patient encounter procedure Autumn Valadez APRN.CNP Work Phone: Endocrinology Comment on above: Type 1 diabetes kasi itus with hyperglycemia, with long-term current use of insulin (HCC) (Primary Dx); Insulin pump status; Screening for diabetic retinopathy Start: 01-25-2023 End: 01-25-2023 Nursing evaluation of patient and report Nurse Laura Rg Work Phone: [facility] Comment on above: Left flank pain (Elaine ten Dx); Dysuria Start: 01-24-2023 Telephone encounter Vivi Smith MD Work Phone: [facility] Primary Comment on above: Orders Results Appointment Start: 01-20-2023 End: 01-20-2023 ambulatory VIVI SMITH Facility:[id number] Start: 01-12-2023 End: 01-13-2023 ambulatory MADONNA TORO Facility:[id number] Start: 01-09-2023 E-mail encounter mario m caregiver Phoebe Mckeon COMPUTER SYSTEMS TECHNOLOGY INSTRUCTOR.TECHNICAL PROGRAMS MANAGER Work Phone: [facility] Start: 01-09-2023 Patient encounter procedure Phoebe Fisherlorenaloni COMPUTER SYSTEMS TECHNOLOGY INSTRUCTOR.TECHNICAL PROGRAMS MANAGER Work Phone: Obstetrics and Gynecology Comment on above: Request an Appointme nt Start: 01-03-2023 Telephone encounter Kvng Brink MD Work Phone: Endocrinology Comment on above: Forms Start: 12-09-2022 Telephone encounter Vivi Smith MD Work Phone: [facility] Primary [facility] Primary Comment on above: Patient Question Start: 12-08-2022 End: 12-08-2022 Office outpatient new 30 minutes Vivi Smith MD Work Phone: [facility] Comment on above: Gastroparesis due to DM (HCC) (Primary Dx); Aortic root aneurysm (HCC); Primary hypertension; Chronic nausea; 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); Marfan syndrome; PTSD (post-traumatic stress disorder); Generalized abdominal pain Start: 11-07-2022 End: 11-07-2022 Patient encounter procedure Abelardo La MD Work Phone: [facility] [place] Comment on above: Viral conjunctivitis (Primary Dx) Start: 11-04-2022 Refill Leesatavares swain PA-C Work Phone: [facility] Start: 11-02-2022 Telephone encounter Kvng Brink MD Work Phone: Endocrinology Comment on above: Forms Start: 10-31-2022 Telephone encounter Kvng Brink MD Work Phone: Endocrinology Comment on above: Insurance Authorizat ion; Forms Start: 10-22-2022 End: 10-22-2022 Patient encounter procedure Abelardo La MD Work Phone: [facility] Comment on above: Lower abdominal pain (Primary Dx) Start: 10-04-2022 End: 10-04-2022 Office outpatient visit 25 minutes Leesa Huddleston PA-C Work Phone: Dermatology [facility] Comment on above: Psoriasis vulgaris ( Primary Dx); Folliculitis; Encounter for long-term current use of high risk medication; Screening for viral disease Start: 09-19-2022 End: 09-19-2022 ambulatory [facility] Comment on above: Type 1 diabetes kasi itus with other specified complication (HCC) (Primary Dx) Start: 09-06-2022 Telephone encounter Autumn peralta APRN.TECHNICAL PROGRAMS MANAGER Work Phone: Endocrinology Comment on above: Medication Problem Start: 08-16-2022 End: 08-16-2022 Patient encounter procedure Autumn Valadez APRN.TECHNICAL PROGRAMS MANAGER Work Phone: Endocrinology Comment on above: Type 1 diabetes kasi itus with hyperglycemia, with long-term current use of insulin (HCC) (Primary Dx); Insulin pump status Start: 08-05-2022 End: 08-05-2022 ambulatory [facility] Comment on above: Type 1 diabetes kasi itus with other specified complication (HCC) (Primary Dx) Start: 07-14-2022 Telephone encounter Kvng Brink MD Work Phone: Endocrinology Comment on above: [facility] form Start: 07-11-2022 End: 07-11-2022 ambulatory Kvng Lewis MD Work Phone: Endocrinology Comment on above: Type 1 diabetes kasi itus with hyperglycemia (HCC) (Primary Dx); Insulin pump status; Abnormal results of thyroid function studies Start: 07-11-2022 End: 07-11-2022 Telemedicine consultation with patient Kvng Lewis MD Work Phone: [facility] Start: 07-06-2022 Telephone encounter Kvng Brink MD Work Phone: Endocrinology Comment on above: Appointment Start: 06-13-2022 Telephone encounter Tawanda soto DO Work Phone: Endocrinology Comment on above: Rodrigue MONIQUE for insu marci pump/pump supplies Start: 06-07-2022 End: 06-07-2022 Patient encounter procedure Phoebe Mckeon COMPUTER SYSTEMS TECHNOLOGY INSTRUCTOR.TECHNICAL PROGRAMS MANAGER Work Phone: Obstetrics and Gynecology Comment on above: Gonorrhea (Primary D x); Screen for sexually transmitted diseases Start: 06-07-2022 Telephone encounter Cyndy walker MD Work Phone: Endocrinology Comment on above: Forms ([facility]) Start: 05-13-2022 ambulatory Tawanda Khoury DO Work Phone: Endocrinology Comment on above: Pump Data/30 day glu cose logs Start: 05-13-2022 E-mail encounter mario m caregiver Tawanda Khoury DO Work Phone: [facility] Start: 05-12-2022 End: 05-12-2022 Nursing evaluation of patient and report Nurse Powerhouse Engineer [facility] Work Phone: Obstetrics and Gynecology Comment on above: Gonorrhea (Primary D x) Start: 05-10-2022 ambulatory Phoebe eid COMPUTER SYSTEMS TECHNOLOGY INSTRUCTOR.TECHNICAL PROGRAMS MANAGER Work Phone: Obstetrics and Gynecology Comment on above: Question regarding S YPHILIS TOTAL W/REFLEX Start: 05-10-2022 Telephone encounter Phoebe Raya COMPUTER SYSTEMS TECHNOLOGY INSTRUCTOR.TECHNICAL PROGRAMS MANAGER Work Phone: Obstetrics and Gynecology Comment on above: Results; Orders Start: 05-02-2022 Refill Tawanda Khoury DO Work Phone: Endocrinology Comment on above: Refill Request Refill Request (Marciz ess) Start: 04-18-2022 End: 04-18-2022 Patient encounter procedure Dashawn Cain COMPUTER SYSTEMS TECHNOLOGY INSTRUCTOR.TECHNICAL PROGRAMS MANAGER Work Phone: [facility] Comment on above: Menstrual irregulari ty (Primary Dx); Screening for STD (sexually transmitted disease); Chronic nausea Start: 03-11-2022 End: 03-11-2022 ambulatory Chair 9 [facility] Comment on above: Type 1 diabetes kasi itus with other specified complication (HCC) (Primary Dx) Start: 03-10-2022 Refill Dashawn Cain APRN.TECHNICAL PROGRAMS MANAGER Work Phone: [facility] Start: 03-07-2022 End: 03-07-2022 ambulatory Injection/Port [facility] [place] Comment on above: Type 1 diabetes kasi itus with other specified complication (HCC) (Primary Dx) Start: 03-01-2022 Chart abstracting Jayjay cobb MD Work Phone: Infusion Center Start: 01-29-2022 End: 01-29-2022 Subsequent hospital visit by physician Sourav Butts MD Work Phone: [facility] Comment on above: DKA,TYPE 1 Start: 01-27-2022 End: 01-27-2022 Subsequent hospital visit by physician Dashawn Cain APRN.TECHNICAL PROGRAMS MANAGER Work Phone: [facility] Comment on above: E10.9 Start: 12-31-2021 Telephone encounter Tawanda soto DO Work Phone: Endocrinology Comment on above: [facility] office n otes request/CGM Data Start: 12-28-2021 End: 12-28-2021 Subsequent hospital visit by physician Alysha Bishop DO Work Phone: [facility] Comment on above: GASTROPARESIS, INTRA CTABLE NAUSEA AND VOMITING Start: 12-28-2021 End: 12-28-2021 Emergency department patient visit ANITA COMER MD [facility] Start: 12-27-2021 End: 12-27-2021 Subsequent hospital visit by physician Latosha MARTINEZ [facility] Comment on above: VOMITTING/CFD/TRIAGE Start: 12-25-2021 Telephone encounter Velia caballero MD Work Phone: [facility] Adult Comment on above: Patient Question Start: 12-06-2021 Telephone encounter Tawanda Keller rst DO Work Phone: Endocrinology Comment on above: approval letter (ins ulin aspart U-100 (NOVOLOG U-100 INSULIN ASPART) 100 unit/mL) Start: 11-26-2021 End: 11-26-2021 Subsequent hospital visit by physician [facility] JANNETHHerve TORST[facility] Comment on above: E10.9 Start: 11-25-2021 End: 11-26-2021 Subsequent hospital visit by physician [facility] Comment on above: E10.9 Start: 10-12-2021 Telephone encounter Leticia Hylton DO Work Phone: Gastroenterology Comment on above: Appointment Start: 02-23-2017 End: 02-24-2017 Emergency department patient visit [facility] Start: 12-05-2014 Patient encounter status [facility] Procedures Date Procedure Procedure Detail Performing Clinician Start: 11-11-2024 Radiologic exam abdo men 1 view Leticia Hylton DO Work Phone: Start: 07-10-2024 Microscopic observat ion [Identifier] in Cervix by Cyto stain Manasa Cantu PA-C Work Phone: Start: 03-12-2024 Hemoglobin A1c/Hemoglobin.total in Blood Kvng Lewis MD Work Phone: Start: 12-13-2023 Hemoglobin A1c/Hemoglobin.total in Blood Jessica Avery COMPUTER SYSTEMS TECHNOLOGY INSTRUCTOR.TECHNICAL PROGRAMS MANAGER Work Phone: Start: 09-24-2023 Plain chest X-ray No Pr imary Care Physician Start: 09-24-2023 SARS-CoV-2, Influenz a & RSV (PCR) No Primary Care Physician Start: 08-07-2023 Nucleic acid assay No P rimary Care Physician Start: 08-07-2023 Ova OR parasites identification No Primary Care Physician Start: 08-06-2023 Computed tomography of abdomen and pelvis with intravenous contrast No Primary Care Physician Start: 05-31-2023 Hemoglobin A1c/Hemoglobin.total in Blood Jessica Avery COMPUTER SYSTEMS TECHNOLOGY INSTRUCTOR.TECHNICAL PROGRAMS MANAGER Work Phone: Start: 04-28-2023 Urine culture No Primar y Care Physician Start: 04-26-2023 CT angiography of ch est with contrast Start: 04-23-2023 CT of thorax, abdome n and pelvis with contrast Start: 03-22-2023 Glucose measurement Gabo Ireland MD Work Phone: Start: 03-22-2023 Glucose measurement Gabo Ireland MD Work Phone: Start: 03-22-2023 Glucose measurement Gabo Ireland MD Work Phone: Start: 03-22-2023 Basic metabolic pane l calcium total Judith Edmondson MD Work Phone: Start: 03-22-2023 Glucose measurement Gabo Ireland MD Work Phone: Start: 03-22-2023 End: 03-22-2023 Glucose measurement Ernie Ireland MD Work Phone: Start: 03-21-2023 Glucose measurement Gabo Ireland MD Work Phone: Start: 03-21-2023 Glucose measurement Gabo Ireland MD Work Phone: Start: 03-21-2023 Glucose measurement Gabo Ireland MD Work Phone: Start: 03-21-2023 Glucose measurement Gabo Ireland MD Work Phone: Start: 03-21-2023 Comprehensive metabolic panel Ernie Ireland MD Work Phone: Start: 03-20-2023 Glucose measurement Gabo Ireland MD Work Phone: Start: 03-20-2023 Electrocardiogram Jack Ireland MD Work Phone: Start: 03-20-2023 Glucose measurement Gabo Ireland MD Work Phone: Start: 03-20-2023 Ecg routine ecg w/le ast 12 lds w/i&r Siddharth Gagnon MD Work Phone: Start: 03-20-2023 Glucose measurement [facility] tammy Ireland MD Work Phone: Start: 03-20-2023 Ecg routine ecg w/le ast 12 lds w/i&r Mary Jennifer Mesa PA-C Work Phone: Start: 03-20-2023 Basic metabolic pane l calcium total Mary Jennifer Mesa PA-C Work Phone: Start: 03-20-2023 Ct angiography chest w/contrast/noncontrast Mariel Gagnon MD Work Phone: Start: 03-20-2023 Electrocardiogram Marile Gagnon MD Work Phone: Start: 03-20-2023 Urnls dip stick/tabl et reagent auto microscopy Mariel Gagnon MD Work Phone: Start: 03-20-2023 Hemoglobin glycosylated a1c Ernie Ireland MD Work Phone: Start: 03-20-2023 Hepatic function panel Mariel Gagnon MD Work Phone: Start: 03-20-2023 LIGHT BLUE TOP Mariel Gagnon MD Work Phone: Start: 03-20-2023 RAINBOW DRAW Mariel stubbs MD Work Phone: Start: 03-20-2023 Ecg routine ecg w/le ast 12 lds w/i&r Mariel Gagnon MD Work Phone: Start: 01-25-2023 Hemoglobin A1c/Hemoglobin.total in Blood Autumn Valadez COMPUTER SYSTEMS TECHNOLOGY INSTRUCTOR.TECHNICAL PROGRAMS MANAGER Work Phone: Start: 01-25-2023 Urnls dip stick/tabl et rgnt auto w/o microscopy Vivi Smith MD Work Phone: Start: 08-16-2022 Hemoglobin A1c/Hemoglobin.total in Blood Autumn Valadez COMPUTER SYSTEMS TECHNOLOGY INSTRUCTOR.TECHNICAL PROGRAMS MANAGER Work Phone: Start: 05-10-2022 Microscopic observat ion [Identifier] in Cervix by Cyto stain Leesa Huddleston PA-C Work Phone: Start: 04-18-2022 Adult depression scr eening assessment Dashawn Cain APRN.CNP Work Phone: Start: 12-28-2021 Ecg routine ecg w/le ast 12 lds i&r only Start: 10-22-2021 Ecg routine ecg w/le ast 12 lds i&r only Start: 06-02-2021 Ecg routine ecg w/le ast 12 lds i&r only Start: 06-01-2021 Ecg routine ecg w/le ast 12 lds i&r only Start: 11-24-2015 Adult depression scr eening assessment [facility] Provider Start: 11-26-2014 History of aortic va lve replacement ANITA COMER MD Start: 04-28-2014 Ophthalmic surgery ( qualifier value) ANITA COMER MD Comment on above: gas bubble put in rt eye due to retina detachment Implantation of inse rtable loop recorder ANITA COMER MD Plan of Treatment Date Care Activity Detail Author Start: 2069 RSV Immunization for Adults (1 - 1-dose 75+ series) RSV Immunization for Adults (1 - 1-dose 75+ series) [facility] Start: 2054 RSV Immunization aged 60 or older (1 - 1-dose 60+ series) RSV Immunization aged 60 or older (1 - 1-dose 60+ series) [facility] Start: 2044 Zoster Vaccines (1 of 2) Zoster Vaccines (1 of 2) [facility] Start: 07-10-2029 Screening for malignant neoplasm of cervix Cervical Cancer Screening [facility] Start: 07-10-2027 Screening for malignant neoplasm of cervix [facility] Start: 02-04-2026 End: 02-04-2026 Patient encounter procedure 02/04/2026 10:00 AM EDT Office Visit [facility] Dermatology - [place] [address] [place] [id number] Mishel Ortez PA-C [address] [place] [address] [facility] Dermatology - [place] Start: 11-11-2025 BP Controlled (<130/80) BP Controlled (<130/80) [facility] Start: 07-30-2025 End: 07-30-2025 Patient encounter procedure 07/30/2025 9:20 AM EST Office Visit [facility] Dermatology [place] [address] [place] [phone] Mishel Ortez PA-C [address] [place] [address] [facility] Dermatology - [place] Start: 07-14-2025 End: 07-14-2025 Patient encounter procedure 07/14/2025 10:30 AM EST Office Visit OB/Gynecology [address] [place], [place] [id number] Jason Paredes MD [address] [place], [place] [id number] Annual OB/Gynecology Comment on above: Annual Start: 07-10-2025 BP Controlled (<130/80) BP Controlled (<130/80) [facility] Start: 05-10-2025 PAP TESTING PAP TESTING [facility] Start: 05-10-2025 Screening for malignant neoplasm of cervix [facility] Start: 04-28-2025 Influenza vaccination Influenza Vaccine (Season Ended) [facility] Start: 03-12-2025 BP Controlled (<130/80) BP Controlled (<130/80) [facility] Start: 03-12-2025 Hemoglobin A1c measurement Diabetes: Hemoglobin A1C [facility] Start: 01-27-2025 End: 01-27-2026 CBC W Auto Differential panel - Blood CBC auto differential Lab Routine Encounter for long-term (current) use of medications Expected: 01/27/2025 (Approximate), Expires: 01/27/2026 [facility] Work Phone: Comment on above: Expected: 01/27/2025 (Approximate), Expi res: 01/27/2026 Start: 01-27-2025 End: 01-27-2026 Comprehensive metabolic 1998 panel - Serum or Plasma Comprehensive metabolic panel Lab Routine Encounter for long-term (current) use of medications Expected: 01/27/2025 (Approximate), Expires: 01/27/2026 [facility] Comment on above: Expected: 01/27/2025 (Approximate), Expi res: 01/27/2026 Start: 01-27-2025 End: 01-27-2026 Hepatitis A virus IgM Ab [Presence] in Serum or Plasma by Immunoassay Hepatitis A antibody, IgM Lab Routine Screening for viral disease Encounter for long-term (current) use of medications Expected: 01/27/2025 (Approximate), Expires: 01/27/2026 [facility] Comment on above: Expected: 01/27/2025 (Approximate), Expi res: 01/27/2026 Start: 01-27-2025 End: 01-27-2026 Hepatitis B virus core IgM Ab [Presence] in Serum or Plasma by Immunoassay Hepatitis B core antibody, IgM Lab Routine Screening for viral disease Encounter for long-term (current) use of medications Expected: 01/27/2025 (Approximate), Expires: 01/27/2026 [facility] Comment on above: Expected: 01/27/2025 (Approximate), Expi res: 01/27/2026 Start: 01-27-2025 End: 01-27-2026 Hepatitis B virus surface Ab [Units/volume] in Serum or Plasma by Immunoassay Hepatitis B surface antibody Lab Routine Screening for viral disease Encounter for long-term (current) use of medications Expected: 01/27/2025 (Approximate), Expires: 01/27/2026 [facility] Comment on above: Expected: 01/27/2025 (Approximate), Expi res: 01/27/2026 Start: 01-27-2025 End: 01-27-2026 Hepatitis B virus surface Ag [Presence] in Serum or Plasma by Immunoassay Hepatitis B surface antigen Lab Routine Screening for viral disease Encounter for long-term (current) use of medications Expected: 01/27/2025 (Approximate), Expires: 01/27/2026 [facility] Comment on above: Expected: 01/27/2025 (Approximate), Expi res: 01/27/2026 Start: 01-27-2025 End: 01-27-2026 Hepatitis C virus Ab [Presence] in Serum or Plasma by Immunoassay Hepatitis C antibody Lab Routine Screening for viral disease Encounter for long-term (current) use of medications Expected: 01/27/2025 (Approximate), Expires: 01/27/2026 [facility] Comment on above: Expected: 01/27/2025 (Approximate), Expi res: 01/27/2026 Start: 01-27-2025 End: 01-27-2026 HIV 1+2 Ab+HIV1 p24 Ag [Presence] in Serum or Plasma by Immunoassay HIV-1 and HIV-2 Antigen-Antibody Screen Lab Routine Screening for viral disease Encounter for long-term (current) use of medications Expected: 01/27/2025 (Approximate), Expires: 01/27/2026 [facility] Comment on above: Expected: 01/27/2025 (Approximate), Expi res: 01/27/2026 Start: 01-27-2025 End: 01-27-2026 QUANTIFERON TB GOLD QUANTIFERON TB GOLD Lab Routine Encounter for screening for respiratory tuberculosis Encounter for long-term (current) use of medications Expected: 01/27/2025 (Approximate), Expires: 01/27/2026 [facility] Comment on above: Expected: 01/27/2025 (Approximate), Expi res: 01/27/2026 Start: 01-27-2025 End: 01-27-2025 Patient encounter procedure 01/27/2025 1:00 PM EDT Office Visit [facility] - [place] [facility] [address] [place] [phone] Mishel Ortez PA-C [address] [place] [address] [facility] D[facility]at[facility] - [place] Start: 01-06-2025 End: 01-06-2025 Patient encounter procedure 01/06/2025 1:00 PM EDT Office Visit [facility] [place] [facility] [address] [place] [phone] Gardenia Reyes PA-C [address] [place] [address] [facility] D[facility]atology - [place] Start: 12-12-2024 Hemoglobin A1c measurement Diabetes: Hemoglobin A1C [facility] Start: 11-11-2024 End: 11-11-2024 Patient encounter procedure 11/11/2024 10:30 AM EDT Office Visit Gastroenterology [address] [place] [address] Leticia Hylton DO [address] [place] [address] eating issues/gp Gastroenterology Comment on above: eating issues/gp Start: 09-12-2024 BP Controlled (<130/80) BP Controlled (<130/80) [facility] Start: 09-12-2024 Hemoglobin A1c measurement [facility] Start: 09-03-2024 End: 09-03-2024 Patient encounter procedure 09/03/2024 11:30 AM EST Office Visit Endocrinology [address] [place] [address] Jessica Guerrero APRN.TECHNICAL PROGRAMS MANAGER [address] [place] [address] 6 month follow up Endocrinology Comment on above: 6 month follow up Start: 09-02-2024 End: 09-02-2024 ambulatory 09/02/2024 9:30 AM EST [facility] [address] [place] [address] Leticia Hylton DO [address] [place] [address] gp f/u Gastroenterology Comment on above: gp f/u Start: 08-28-2024 Medicare Advantage Annual Wellness Visit Medicare Advantage Annual Well[facility] [facility] Start: 08-15-2024 Diabetes: Estimated Glomerular Filtration Rate for [facility]ney [facility] Diabetes: Estimated Glomerular Filtration Rate for Kidney Health [facility] Start: 08-06-2024 End: 08-06-2024 Patient encounter procedure [facility] Start: 2024 Screening for malignant neoplasm of cervix HPV/Cotest [facility] Start: 07-23-2024 End: 07-23-2024 Nursing evaluation of patient and report 07/23/2024 9:00 AM EST Nurse Visit Endocrinology [address] [place] [address] Vamsi Carson, RN [address] [id number] Type 1 diabetes mellitus with hyperglycemia, with long-term current use of insul... Endocrinology Comment on above: Type 1 diabetes mellitus with hyperglyce emma, with long-term current use of insul... Start: 07-19-2024 End: 10-18-2024 Comprehensive metabolic 2000 panel - Serum or Plasma COMPREHENSIVE METABOLIC PANEL Lab Routine Type 1 diabetes mellitus with hyperglycemia, with long-term current use of insulin (HCC) Insulin pump status Expected: 07/19/2024, Expires: 10/18/2024 [facility] Work Phone: Comment on above: Expected: 07/19/2024, Expires: Start: 07-19-2024 End: 10-18-2024 Hemoglobin A1c in Blood HEMOGLOBIN A1C Lab Routine Type 1 diabetes mellitus with hyperglycemia, with long-term current use of insulin (HCC) Insulin pump status Expected: 07/19/2024, Expires: 10/18/2024 [facility] Comment on above: Expected: 07/19/2024, Expires: 5 Start: 07-19-2024 End: 10-18-2024 Lipid 1996 panel - Serum or Plasma LIPID PANEL BASIC Lab Routine Type 1 diabetes mellitus with hyperglycemia, with long-term current use of insulin (HCC) Insulin pump status Expected: 07/19/2024, Expires: 10/18/2024 [facility] Comment on above: Expected: 07/19/2024, Expires: 5 Start: 07-19-2024 End: 10-18-2024 Microalbumin/Creatinine [Mass Ratio] in Urine ALBUMIN/CREATININE RATIO, URINE Lab Routine Type 1 diabetes mellitus with hyperglycemia, with long-term current use of insulin (HCC) Insulin pump status Expected: 07/19/2024, Expires: 10/18/2024 [facility] Comment on above: Expected: 07/19/2024, Expires: 5 Start: 07-19-2024 End: 07-19-2024 ambulatory 07/19/2024 1:30 PM EST [facility] [address] [place] [address] Jessica Guerrero APRN.TECHNICAL PROGRAMS MANAGER [address] [place] [address] follw up Endocrinology Comment on above: follw up Start: 07-10-2024 End: 10-09-2024 Hepatitis C virus RNA [Units/volume] (viral load) in Serum or Plasma by DANIEL with probe detection [facility] Comment on above: Expected: 07/10/2024, Expires: Start: 07-10-2024 End: 10-09-2024 HIV 1+2 Ab [Presence] in Serum or Plasma by Immunoassay [facility] Work Phone: Comment on above: Expected: 07/10/2024, Expires: 5 Start: 07-10-2024 End: 10-09-2024 SYPHILIS TREPONEMAL W/REFLEX [facility] Comment on above: Expected: 07/10/2024, Expires: 5 Start: 07-10-2024 End: 10-09-2024 Thyrotropin [Units/volume] in Serum or Plasma [facility] Comment on above: Expected: 07/10/2024, Expires: 5 Start: 07-10-2024 End: 07-10-2024 Patient encounter procedure 07/10/2024 11:10 AM EST Office Visit OB/Gynecology [address] [place] [id number] Jason Paredes MD [address] [place] [address] Annual/ Referral in Scan Doc OB/Gynecology Comment on above: Annual/ Referral in Scan Doc Start: 06-13-2024 End: 06-13-2024 Patient encounter procedure 06/13/2024 3:00 PM EDT Office Visit Endocrinology [address] [facility] [place] [address] Jessica Guerrero, ESTEFANIA.TECHNICAL PROGRAMS MANAGER [address] [facility] [place] [address] 6 month follow up Endocrinology Comment on above: 6 month follow up Start: 06-13-2024 Hemoglobin A1c measurement HbA1C [facility] Start: 06-12-2024 Hemoglobin A1c measurement HbA1C [facility] Start: 05-31-2024 BP Controlled (<130/80) BP Controlled (<130/80) [facility] Start: 05-31-2024 Hemoglobin A1c measurement Diabetes: Hemoglobin A1C [facility] Start: 05-28-2024 End: 05-28-2024 Patient encounter procedure 05/28/2024 11:30 AM EDT Office Visit Endocrinology [address] [place] [address] Jessica Guerrero, COMPUTER SYSTEMS TECHNOLOGY INSTRUCTOR.TECHNICAL PROGRAMS MANAGER [address] [facility] [place] [address] 2-3 month f/u Endocrinology Comment on above: 2-3 month f/u Start: 04-28-2024 COVID-19 Vaccine ( season) COVID-19 Vaccine ( season) [facility] Start: 04-28-2024 Covid-19 Vaccine ( season) Covid-19 Vaccine ( season) [facility] Start: 04-28-2024 Influenza vaccination [facility] Start: 04-16-2024 DTaP/Tdap/Td Vaccines (3 - Td or Tdap) DTaP/Tdap/Td Vaccines (3 - Td or Tdap) [facility] Start: 04-16-2024 Urine microalbumin profile [facility] Start: 03-12-2024 Hemoglobin A1c measurement HbA1C [facility] Start: 03-12-2024 End: 03-12-2024 Patient encounter procedure 03/12/2024 2:00 PM EDT Office Visit Endocrinology [address] [facility] [place] [address] Kvng Lewis MD [address] [place] [address] follow up Endocrinology Comment on above: follow up Start: 02-08-2024 BP CONTROLLED (<130/80) BP CONTROLLED (<130/80) [facility] Start: 02-01-2024 End: 02-01-2024 Patient encounter procedure 02/01/2024 10:00 AM EDT Office Visit [facility] Dermatology [address] [place] [id number] Leesa Huddleston PA-C [address] [place] [address] [facility] Start: 01-26-2024 BP CONTROLLED (<130/80) BP CONTROLLED (<130/80) [facility] Start: 01-21-2024 ANNUAL PCP TEAM CHRONIC DISEASE VISIT ANNUAL PCP TEAM CHRONIC DISEASE VISIT [facility] Start: 01-21-2024 BP CONTROLLED (<130/80) BP CONTROLLED (<130/80) [facility] Start: 12-09-2023 ANNUAL PCP TEAM CHRONIC DISEASE VISIT ANNUAL PCP TEAM CHRONIC DISEASE VISIT [facility] Start: 11-30-2023 Hemoglobin A1c measurement HbA1C [facility] Start: 11-30-2023 Hemoglobin A1c/Hemoglobin.total in Blood HbA1C [facility] Start: 11-14-2023 End: 11-14-2023 Patient encounter procedure 11/14/2023 10:20 AM EDT Office Visit [facility] Dermatology [address] [place] [id number] Leesa Huddleston PA-C [address] [place] [address] [facility] Start: 11-08-2023 BP CONTROLLED (<130/80) BP CONTROLLED (<130/80) [facility] in Start: 10-25-2023 [facility] Start: 02-28-2024 Suicide precautions [facility] Start: 10-18-2023 Patient discharge [facility] Start: 10-17-2023 [facility] Start: 10-17-2023 Venous catheter care management [facility] Start: 10-17-2023 Assessment of risk of venous thromboembolism [facility] Start: 10-17-2023 Continuous pulse oximetry [facility] Start: 10-17-2023 Insertion of catheter into peripheral vein [facility] Start: 10-17-2023 Measuring intake and output [facility] Start: 10-17-2023 Notification of physician [facility] Start: 10-17-2023 Patient education [facility] Start: 10-17-2023 Patient referral to dietitian [facility] Start: 10-17-2023 Providing care according to standard [facility] Start: 10-17-2023 Referral to occupational therapist [facility] Start: 10-17-2023 Referral to service [facility] Start: 10-17-2023 Vital signs measurements [facility] Start: 10-17-2023 [facility] Start: 10-17-2023 Verification routine [facility] Start: 10-17-2023 Admission procedure [facility] Start: 10-17-2023 Hospital admission, emergency, from emergency room, medical nature [facility] Start: 10-17-2023 [facility] Start: 09-25-2023 Venous catheter care management [facility] Start: 09-25-2023 [facility] Start: 09-20-2023 [facility] Start: 09-06-2023 Venous catheter care management [facility] Start: 09-06-2023 [facility] Start: 08-28-2023 Behavioral Health Screening Behavioral Health Screening [facility] Start: 08-28-2023 Depression Assessment Depression Assessment [facility] Start: 08-28-2023 Medicare Advantage Annual Wellness Visit Medicare Advantage Annual Wellness Visit [facility] Start: 08-22-2023 [facility] Start: 08-22-2023 [facility] Start: 08-22-2023 Venous catheter care management [facility] Start: 08-16-2023 3 comp foot exam completed DIABETIC FOOT EXAM [facility] Start: 08-16-2023 BP CONTROLLED (<130/80) BP CONTROLLED (<130/80) [facility] Start: 08-16-2023 Diabetic foot examination Diabetic Foot Exam [facility] Start: 08-15-2023 End: 08-15-2023 Patient encounter procedure [facility] Start: 08-10-2023 Patient discharge [facility] Start: 08-10-2023 End: 08-10-2023 [facility] Start: 08-09-2023 Care planning and problem solving actions [facility] Start: 08-09-2023 Provision of activity privileges [facility] Start: 08-08-2023 [facility] Start: 08-08-2023 Blood chemistry [facility] Start: 08-08-2023 [facility] Start: 08-07-2023 Care planning and problem solving actions [facility] Start: 08-07-2023 Blood chemistry [facility] Start: 08-07-2023 Blood chemistry [facility] Start: 08-07-2023 Care planning and problem solving actions [facility] Start: 08-07-2023 Blood chemistry [facility] Start: 08-07-2023 Blood chemistry [facility] Start: 08-07-2023 Acetone [Presence] in Serum or Plasma [facility] Start: 08-07-2023 Gas panel - Arterial blood [facility] Start: 08-07-2023 Blood chemistry [facility] Start: 08-07-2023 Application of intermittent pneumatic compression device [facility] Start: 08-07-2023 Enteric precautions [facility] Start: 08-07-2023 Following clinical pathway protocol [facility] Start: 08-07-2023 Hemoglobin A1c/Hemoglobin.total in Blood [facility] Start: 08-07-2023 Lab findings surveillance [facility] Start: 08-07-2023 Notification of physician [facility] Start: 08-07-2023 Patient education [facility] Start: 08-07-2023 Taking nasal swab [facility] Start: 08-07-2023 Vital signs measurements [facility] Start: 08-07-2023 [facility] Start: 08-07-2023 Aspiration precautions [facility] Start: 08-07-2023 Blood chemistry [facility] Start: 08-07-2023 Admission procedure [facility] Start: 08-06-2023 Venous catheter care management [facility] Start: 08-06-2023 Gas panel - Venous blood [facility] Start: 08-06-2023 [facility] Start: 08-06-2023 Venous catheter care management [facility] Start: 07-27-2023 Hemoglobin A1c/Hemoglobin.total in Blood HBA1C [facility] Start: 06-26-2023 Venous catheter care management [facility] Start: 06-26-2023 [facility] Start: 06-25-2023 End: 06-25-2023 [facility] Start: 06-07-2023 BP CONTROLLED (<130/80) BP CONTROLLED (<130/80) [facility] Start: 05-10-2023 BP CONTROLLED (<130/80) BP CONTROLLED (<130/80) [facility] Start: 05-06-2023 Blood chemistry [facility] Start: 05-05-2023 Blood chemistry [facility] Start: 05-04-2023 Blood chemistry [facility] Start: 05-03-2023 Venous catheter care management [facility] Start: 05-03-2023 Blood chemistry [facility] Start: 05-02-2023 Blood chemistry [facility] Start: 05-01-2023 Blood chemistry [facility] Start: 04-30-2023 Blood chemistry [facility] Start: 04-29-2023 Patient discharge [facility] Start: 04-29-2023 Venous catheter care management [facility] Start: 04-28-2023 Care regimes management [facility] Start: 04-28-2023 Notification of physician [facility] Start: 04-28-2023 End: 04-28-2023 [facility] Start: 04-28-2023 Covid-19 Vaccine () Covid-19 Vaccine () [facility] Start: 04-28-2023 Influenza vaccination [facility] Start: 04-28-2023 Urine culture Urine Culture [facility] Start: 04-28-2023 [facility] Start: 04-27-2023 Following clinical pathway protocol [facility] Start: 04-27-2023 Ambulation without limitation [facility] Start: 04-27-2023 Assessment of risk of venous thromboembolism [facility] Start: 04-27-2023 Insertion of catheter into peripheral vein [facility] Start: 04-27-2023 Providing care according to standard [facility] Start: 04-27-2023 [facility] Start: 04-27-2023 Verification routine [facility] Start: 04-27-2023 Admission procedure [facility] Start: 04-27-2023 [facility] Start: 04-27-2023 Venous catheter care management [facility] Start: 04-27-2023 Consultation [facility] Start: 04-27-2023 Patient referral to dietitian [facility] Start: 04-23-2023 Venous catheter care management [facility] Start: 04-18-2023 Adult depression screening assessment DEPRESSION SCREENING [facility] Start: 04-18-2023 ANNUAL PCP TEAM CHRONIC DISEASE VISIT ANNUAL PCP TEAM CHRONIC DISEASE VISIT [facility] Start: 04-18-2023 BP CONTROLLED (<130/80) BP CONTROLLED (<130/80) [facility] Start: 02-14-2023 Hemoglobin A1c/Hemoglobin.total in Blood HBA1C [facility] Start: 01-25-2023 End: 03-27-2023 ALBUMIN/CREAT RATIO RND UR ALBUMIN/CREAT RATIO RND UR Lab Routine Type 1 diabetes mellitus with hyperglycemia, with long-term current use of insulin (HCC) Expected: 01/25/2023, Expires: 03/27/2023 [facility] Work Phone: Comment on above: Expected: 01/25/2023, Expires: Start: 10-04-2022 End: 10-04-2023 CBC W Auto Differential panel - Blood CBC auto differential Lab Routine Psoriasis vulgaris Encounter for long-term current use of high risk medication Expected: 10/04/2022 (Approximate), Expires: 10/04/2023 [facility] Work Phone: Comment on above: Expected: 10/04/2022 (Approximate), Expi res: 10/04/2023 Start: 10-04-2022 End: 10-04-2023 Comprehensive metabolic 1998 panel - Serum or Plasma Comprehensive metabolic panel Lab Routine Psoriasis vulgaris Encounter for long-term current use of high risk medication Expected: 10/04/2022 (Approximate), Expires: 10/04/2023 [facility] Comment on above: Expected: 10/04/2022 (Approximate), Expi res: 10/04/2023 Start: 10-04-2022 End: 10-04-2023 Hepatitis A virus IgM Ab [Presence] in Serum or Plasma by Immunoassay Hepatitis A antibody, IgM Lab Routine Psoriasis vulgaris Encounter for long-term current use of high risk medication Screening for viral disease Expected: 10/04/2022 (Approximate), Expires: 10/04/2023 [facility] Comment on above: Expected: 10/04/2022 (Approximate), Expi res: 10/04/2023 Start: 10-04-2022 End: 10-04-2023 Hepatitis B virus core IgM Ab [Presence] in Serum or Plasma by Immunoassay Hepatitis B core antibody, IgM Lab Routine Psoriasis vulgaris Encounter for long-term current use of high risk medication Screening for viral disease Expected: 10/04/2022 (Approximate), Expires: 10/04/2023 [facility] Comment on above: Expected: 10/04/2022 (Approximate), Expi res: 10/04/2023 Start: 10-04-2022 End: 10-04-2023 Hepatitis B virus surface Ab [Units/volume] in Serum or Plasma by Immunoassay Hepatitis B surface antibody Lab Routine Psoriasis vulgaris Encounter for long-term current use of high risk medication Screening for viral disease Expected: 10/04/2022 (Approximate), Expires: 10/04/2023 [facility] Comment on above: Expected: 10/04/2022 (Approximate), Expi res: 10/04/2023 Start: 10-04-2022 End: 10-04-2023 Hepatitis B virus surface Ag [Presence] in Serum or Plasma by Immunoassay Hepatitis B surface antigen Lab Routine Psoriasis vulgaris Encounter for long-term current use of high risk medication Screening for viral disease Expected: 10/04/2022 (Approximate), Expires: 10/04/2023 [facility] Comment on above: Expected: 10/04/2022 (Approximate), Expi res: 10/04/2023 Start: 10-04-2022 End: 10-04-2023 Hepatitis C virus Ab [Presence] in Serum or Plasma by Immunoassay Hepatitis C antibody Lab Routine Psoriasis vulgaris Encounter for long-term current use of high risk medication Screening for viral disease Expected: 10/04/2022 (Approximate), Expires: 10/04/2023 [facility] Comment on above: Expected: 10/04/2022 (Approximate), Expi res: 10/04/2023 Start: 10-04-2022 End: 10-04-2023 HIV 1+2 Ab+HIV1 p24 Ag [Presence] in Serum or Plasma by Immunoassay HIV-1 and HIV-2 Antigen-Antibody Screen Lab Routine Psoriasis vulgaris Encounter for long-term current use of high risk medication Screening for viral disease Expected: 10/04/2022 (Approximate), Expires: 10/04/2023 [facility] Comment on above: Expected: 10/04/2022 (Approximate), Expi res: 10/04/2023 Start: 10-04-2022 End: 10-04-2023 QUANTIFERON TB GOLD QUANTIFERON TB GOLD Lab Routine Psoriasis vulgaris Encounter for long-term current use of high risk medication Expected: 10/04/2022 (Approximate), Expires: 10/04/2023 [facility] Comment on above: Expected: 10/04/2022 (Approximate), Expi res: 10/04/2023 Start: 08-28-2022 DEPRESSION ASSESSMENT DEPRESSION ASSESSMENT [facility] Start: 07-11-2022 End: 09-10-2022 Hemoglobin A1c in Blood HGB A1C Lab Routine Type 1 diabetes mellitus with hyperglycemia (HCC) Insulin pump status Expected: 07/11/2022, Expires: 09/10/2022 [facility] Work Phone: Comment on above: Expected: 07/11/2022, Expires: 3 Start: 07-11-2022 End: 09-10-2022 THYROID PEROXIDASE ANTIBODY BLOOD THYROID PEROXIDASE ANTIBODY BLOOD Lab Routine Type 1 diabetes mellitus with hyperglycemia (HCC) Insulin pump status Abnormal results of thyroid function studies Expected: 07/11/2022, Expires: 09/10/2022 [facility] Work Phone: Comment on above: Expected: 07/11/2022, Expires: 3 Start: 07-11-2022 End: 09-10-2022 Thyrotropin [Units/volume] in Serum or Plasma TSH BLD Lab Routine Type 1 diabetes mellitus with hyperglycemia (HCC) Insulin pump status Abnormal results of thyroid function studies Expected: 07/11/2022, Expires: 09/10/2022 [facility] Work Phone: Comment on above: Expected: 07/11/2022, Expires: 3 Start: 07-11-2022 End: 09-10-2022 Thyroxine (T4) free [Mass/volume] in Serum or Plasma T4 FREE/FREE THYROX Lab Routine Type 1 diabetes mellitus with hyperglycemia (HCC) Insulin pump status Abnormal results of thyroid function studies Expected: 07/11/2022, Expires: 09/10/2022 [facility] Work Phone: Comment on above: Expected: 07/11/2022, Expires: 3 Start: 07-02-2022 Hemoglobin A1c/Hemoglobin.total in Blood HBA1C [facility] Start: 04-28-2022 Influenza vaccination [facility] Start: 04-18-2022 End: 06-18-2022 Chlamydia trachomatis+Neisseria gonorrhoeae DNA [Presence] in Urine by DANIEL with probe detection GC/CHLAMYDIA AMPLIF, URINE Microbiology Routine Menstrual irregularity Screening for STD (sexually transmitted disease) Expected: 04/18/2022, Expires: 06/18/2022 [facility] Work Phone: Comment on above: Expected: 04/18/2022, Expires: 2 Start: 04-18-2022 End: 06-18-2022 Choriogonadotropin ( test) [Presence] in Urine HCG QUAL UR Lab Routine Menstrual irregularity Expected: 04/18/2022, Expires: 06/18/2022 [facility] Work Phone: Comment on above: Expected: 04/18/2022, Expires: 2 Start: 02-04-2022 Hepatitis B surface antibody level LDL CHOLESTEROL [facility] Start: 08-28-2021 DEPRESSION ASSESSMENT DEPRESSION ASSESSMENT [facility] Start: 05-27-2021 Hemoglobin A1c/Hemoglobin.total in Blood HBA1C [facility] Start: 12-23-2020 Glaucoma screening Dilated Retinal Exam [facility] Start: 12-23-2020 Hepatitis C antibody, confirmatory test DILATED RETINAL EXAM [facility] Start: 03-30-2019 PAP TESTING PAP TESTING [facility] Start: 03-21-2018 Diabetes: Urine Albumin-Creatinine Ratio for [facility] Diabetes: Urine Albumin-Creatinine Ratio for [facility] Start: 03-21-2018 Hepatitis B screening URINE ALBUMIN:CREATININE RATIO [facility] Start: 11-23-2016 Adult depression screening assessment DEPRESSION SCREENING [facility] Start: 11-12-2016 3 comp foot exam completed DIABETIC FOOT EXAM [facility] Start: 01-01-2014 PNEUMOCOCCAL (2 - PCV) PNEUMOCOCCAL (2 - PCV) [facility] Start: 01-01-2014 Pneumococcal vaccination [facility] Start: 2013 HEPATITIS B (1 of 3 - Risk 3-dose series) HEPATITIS B (1 of 3 - Risk 3-dose series) [facility] Start: 2013 Hepatitis B Vaccine (1 of 3 - 19+ 3-dose series) Hepatitis B Vaccine (1 of 3 - 19+ 3-dose series) [facility] Start: 2013 Hepatitis B Vaccines (1 of 3 - 19+ 3-dose series) Hepatitis B Vaccines (1 of 3 - 19+ 3-dose series) [facility] Start: 2013 Urine screening for protein Diabetes: Urine Protein Screening [facility] Start: 12-11-2012 HPV Vaccine (3 - 3-dose series) HPV Vaccine (3 - 3-dose series) [facility] Start: 12-11-2012 HPV Vaccines (3 - 3-dose series) HPV Vaccines (3 - 3-dose series) [facility] Start: 11-06-2012 Hepatitis A Vaccines (2 of 2 - 2-dose series) Hepatitis A Vaccines (2 of 2 - 2-dose series) [facility] Start: 2012 ANNUAL PCP TEAM CHRONIC DISEASE VISIT ANNUAL PCP TEAM CHRONIC DISEASE VISIT [facility] Start: 2012 BP CONTROLLED (<130/80) BP CONTROLLED (<130/80) [facility] Start: 2012 Depression Screening Depression Screening [facility] Start: 2012 Diabetes: Urine Albumin-Creatinine Ratio for [facility] Diabetes: Urine Albumin-Creatinine Ratio for [facility] Start: 2012 Hepatitis B surface antibody level LDL CHOLESTEROL [facility] Start: 2007 Varicella vaccination Varicella Vaccines (1 of 2 - 13+ 2-dose series) [facility] Start: 2006 Depression Monitoring Depression Monitoring [facility] Start: 2006 Depression Screening Depression Screening [facility] Start: 2004 Diabetic foot examination Diabetes: Foot Exam [facility] Start: 2004 Glaucoma screening Diabetes: Retinopathy Screening [facility] Start: 2004 Preventive dental service Diabetes: Dental Exam [facility] Start: 2000 PNEUMOCOCCAL (1 - PCV) PNEUMOCOCCAL (1 - PCV) [facility] Start: 1999 COVID-19 VACCINE (#1) COVID-19 VACCINE (#1) [facility] Start: 1999 COVID-19 VACCINE (1) COVID-19 VACCINE (1) [facility] Start: 1995 MMR Vaccines (1 of 1 - Standard series) MMR Vaccines (1 of 1 - Standard series) [facility] Start: 1995 Varicella vaccination Varicella Vaccines (1 of 2 - 2-dose childhood series) [facility] Start: 01-27-1995 COVID-19 VACCINE (#1) COVID-19 VACCINE (#1) [facility] Start: 1994 Hemoglobin A1c measurement Diabetes: Hemoglobin A1C [facility] [place] 1994 HEPATITIS B (1 of 3 - 3-dose series) HEPATITIS B (1 of 3 - 3-dose series) [facility] Start: 1994 Hepatitis B Vaccine (1 of 3 - 3-dose series) Hepatitis B Vaccine (1 of 3 - 3-dose series) [facility] Start: 1994 Hepatitis B Vaccines (1 of 3 - 3-dose series) Hepatitis B Vaccines (1 of 3 - 3-dose series) [facility] Start: 1994 Lipid panel Lipid Panel [facility] Start: 1994 Medicare Advantage Annual Wellness Visit (AWV) Medicare Advantage Annual Wellness Visit (AWV) [facility] Anion gap measurement [facility] Anion gap measurement [facility] Anion gap measurement [facility] Anion gap measurement [facility] Anion gap measurement [facility] Anion gap measurement [facility] Anion gap measurement [facility] An[facility] gap measurement [facility] Anion gap measurement [facility] An[facility] gap measurement [facility] Anion gap measurement [facility] Anion gap measurement [facility] Anion gap measurement [facility] Anion gap [facility] Bacteria identified in Urine by Culture URINE CULTURE Microbiology Routine Left flank pain Ordered: 01/25/2023 [facility] Work Phone: Comment on above: Ordered: 01/25/2023 BUN/Creatinine ratio [facility] BUN/Creatinine ratio [facility] BUN/Creatinine ratio [facility] BUN/Creatinine ratio [facility] BUN/Creatinine ratio [facility] BUN/Creatinine ratio [facility] BUN/Creatinine ratio [facility] BUN/Creatinine ratio [facility] BUN/Creatinine ratio [facility] BUN/Creatinine ratio [facility] BUN/Creatinine ratio [facility] BUN/Creatinine ratio [facility] BUN/Creatinine ratio [facility] BUN/Creatinine ratio [facility] Calcium [Mass/volume ] in Serum or Plasma [facility] Calcium [Mass/volume ] in Serum or Plasma [facility] Calcium [Mass/volume ] in Serum or Plasma [facility] Calcium [Mass/volume ] in Serum or Plasma [facility] Calcium [Mass/volume ] in Serum or Plasma [facility] Calcium [Mass/volume ] in Serum or Plasma [facility] Calcium [Mass/volume ] in Serum or Plasma [facility] Calcium [Mass/volume ] in Serum or Plasma [facility] Calcium [Mass/volume ] in Serum or Plasma [facility] Calcium [Mass/volume ] in Serum or Plasma [facility] Calcium [Mass/volume ] in Serum or Plasma [facility] Calcium [Mass/volume ] in Serum or Plasma [facility] Calcium [Mass/volume ] in Serum or Plasma [facility] Calcium [Mass/volume ] in Serum or Plasma [facility] Carbon dioxide, tota l [Moles/volume] in Serum or Plasma [facility] Carbon dioxide, tota l [Moles/volume] in Serum or Plasma [facility] Carbon dioxide, tota l [Moles/volume] in Serum or Plasma [facility] Carbon dioxide, tota l [Moles/volume] in Serum or Plasma [facility] Carbon dioxide, tota l [Moles/volume] in Serum or Plasma [facility] Carbon dioxide, tota l [Moles/volume] in Serum or Plasma [facility] Carbon dioxide, tota l [Moles/volume] in Serum or Plasma [facility] Carbon dioxide, tota l [Moles/volume] in Serum or Plasma [facility] Carbon dioxide, tota l [Moles/volume] in Serum or Plasma [facility] Carbon dioxide, tota l [Moles/volume] in Serum or Plasma [facility] Carbon dioxide, tota l [Moles/volume] in Serum or Plasma [facility] Carbon dioxide, tota l [Moles/volume] in Serum or Plasma [facility] Carbon dioxide, tota l [Moles/volume] in Serum or Plasma [facility] Carbon dioxide, tota l [Moles/volume] in Serum or Plasma [facility] Chlamydia trachomatis+Neisseria gonorrhoeae DNA [Presence] in Unspecified specimen by DANIEL with probe detection GC/CHLAMYDIA DNA DET Lab Routine Gonorrhea Screen for sexually transmitted diseases Ordered: 06/07/2022 [facility] Work Phone: Comment on above: Ordered: 06/07/2022 Chlamydia trachomatis+Neisseria gonorrhoeae DNA [Presence] in Unspecified specimen by DANIEL with probe detection GONORRHEA/CHLAMYDIA NAAT Lab Routine Encounter for gynecological examination (general) (routine) without abnormal findings Encounter for screening for malignant neoplasm of cervix Screening for human papillomavirus (HPV) Irregular menstrual bleeding Routine screening for STI (sexually transmitted infection) 07/10/2024 12:13 PM [facility] Chloride [Moles/volu me] in Serum or Plasma [facility] Chloride [Moles/volu me] in Serum or Plasma [facility] Chloride [Moles/volu me] in Serum or Plasma [facility] Chloride [Moles/volu me] in Serum or Plasma [facility] Chloride [Moles/volu me] in Serum or Plasma [facility] Chloride [Moles/volu me] in Serum or Plasma [facility] Chloride [Moles/volu me] in Serum or Plasma [facility] Chloride [Moles/volu me] in Serum or Plasma [facility] Chloride [Moles/volu me] in Serum or Plasma [facility] Chloride [Moles/volu me] in Serum or Plasma [facility] Chloride [Moles/volu me] in Serum or Plasma [facility] Chloride [Moles/volu me] in Serum or Plasma [facility] Chloride [Moles/volu me] in Serum or Plasma [facility] Chloride [Moles/volu me] in Serum or Plasma [facility] Clostridioides diffi cile DNA [Presence] in Unspecified specimen by DANIEL with probe detection [facility] Creatinine [Moles/vo lume] in Serum or Plasma [facility] Creatinine [Moles/vo lume] in Serum or Plasma [facility] Creatinine [Moles/vo lume] in Serum or Plasma [facility] Creatinine [Moles/vo lume] in Serum or Plasma [facility] Creatinine [Moles/vo lume] in Serum or Plasma [facility] Creatinine [Moles/vo lume] in Serum or Plasma [facility] Creatinine [Moles/vo lume] in Serum or Plasma [facility] Creatinine [Moles/vo lume] in Serum or Plasma [facility] Creatinine [Moles/vo lume] in Serum or Plasma [facility] Creatinine [Moles/vo lume] in Serum or Plasma [facility] Creatinine [Moles/vo lume] in Serum or Plasma [facility] Creatinine [Moles/vo lume] in Serum or Plasma [facility] Creatinine [Moles/vo lume] in Serum or Plasma [facility] Creatinine [Moles/vo lume] in Serum or Plasma [facility] Gastrointestinal pathogens panel - Stool by DANIEL with probe detection [facility] Glucose [Mass/volume ] in Serum or Plasma [facility] Glucose [Mass/volume ] in Serum or Plasma [facility] Glucose [Mass/volume ] in Serum or Plasma [facility] Glucose [Mass/volume ] in Serum or Plasma [facility] Glucose [Mass/volume ] in Serum or Plasma [facility] Glucose [Mass/volume ] in Serum or Plasma [facility] Glucose [Mass/volume ] in Serum or Plasma [facility] Glucose [Mass/volume ] in Serum or Plasma [facility] Glucose [Mass/volume ] in Serum or Plasma [facility] Glucose [Mass/volume ] in Serum or Plasma [facility] Glucose [Mass/volume ] in Serum or Plasma [facility] Glucose [Mass/volume ] in Serum or Plasma [facility] Glucose [Mass/volume ] in Serum or Plasma [facility] Glucose [Mass/volume ] in Serum or Plasma [facility] Hematocrit [Volume Fraction] of Blood [facility] Hematocrit [Volume Fraction] of Blood [facility] Hematocrit [Volume Fraction] of Blood [facility] Hematocrit [Volume Fraction] of Blood [facility] Hematocrit [Volume Fraction] of Blood [facility] Hematocrit [Volume Fraction] of Blood [facility] Hematocrit [Volume Fraction] of Blood [facility] Hemoglobin [Mass/vol ume] in Blood [facility] Hemoglobin [Mass/vol ume] in Blood [facility] Hemoglobin [Mass/vol ume] in Blood [facility] Hemoglobin [Mass/vol ume] in Blood [facility] Hemoglobin [Mass/vol ume] in Blood [facility] Hemoglobin [Mass/vol ume] in Blood [facility] Hemoglobin [Mass/vol ume] in Blood [facility] Hemoglobin A1c/Hemoglobin.total in Blood HEMOGLOBIN A1C (POC) Lab Routine Type 1 diabetes mellitus with hyperglycemia, with long-term current use of insulin (HCC) Ordered: 03/12/2024 [facility] Work Phone: Comment on above: Ordered: 03/12/2024 Lactoferrin [Presenc e] in Stool by Immunoassay [facility] Leukocytes [#/volume ] in Blood [facility] Leukocytes [#/volume ] in Blood [facility] Leukocytes [#/volume ] in Blood [facility] Leukocytes [#/volume ] in Blood [facility] Leukocytes [#/volume ] in Blood [facility] Leukocytes [#/volume ] in Blood [facility] Leukocytes [#/volume ] in Blood [facility] Magnesium [Mass/volu me] in Serum or Plasma [facility] Mean corpuscular hemoglobin concentration determination [facility] Mean corpuscular hemoglobin concentration determination [facility] Mean corpuscular hemoglobin concentration determination [facility] Mean corpuscular hemoglobin concentration determination [facility] Mean corpuscular hemoglobin concentration determination [facility] Mean corpuscular hemoglobin concentration determination [facility] Mean corpuscular hemoglobin concentration determination [facility] Mean corpuscular hemoglobin determination [facility] Mean corpuscular hemoglobin determination [facility] Mean corpuscular hemoglobin determination [facility] Mean corpuscular hemoglobin determination [facility] Mean corpuscular hemoglobin determination [facility] Mean corpuscular hemoglobin determination [facility] Mean corpuscular hemoglobin determination [facility] Measurement of renal function [facility] Measurement of renal function [facility] Measurement of renal function [facility] Measurement of renal function [facility] Measurement of renal function [facility] Measurement of renal function [facility] Measurement of renal function [facility] Measurement of renal function [facility] Measurement of renal function [facility] Measurement of renal function [facility] Measurement of renal function [facility] Measurement of renal function [facility] Measurement of renal function [facility] Measurement of renal function [facility] Neutrophil count [facility] Neutrophil count [facility] Neutrophil count [facility] Neutrophil count [facility] Neutrophil count [facility] Neutrophil count [facility] Neutrophil count [facility] Neutrophil percent differential count [facility] Neutrophil percent differential count [facility] Neutrophil percent differential count [facility] Neutrophil percent differential count [facility] Neutrophil percent differential count [facility] Neutrophil percent differential count [facility] Neutrophil percent differential count [facility] Ova and parasites identified in Unspecified specimen by Light microscopy [facility] PAP TEST PAP TEST Lab [facility] for screening for malignant neoplasm of cervix Screening for human papillomavirus (HPV) 07/10/2024 12:13 PM [facility] Patient Education [facility] Work Phone: Patient referral [facility] Work Phone: Platelets [#/volume] in Blood [facility] Platelets [#/volume] in Blood [facility] Platelets [#/volume] in Blood [facility] Platelets [#/volume] in Blood [facility] Platelets [#/volume] in Blood [facility] Platelets [#/volume] in Blood [facility] Platelets [#/volume] in Blood [facility] Potassium [Moles/vol ume] in Serum or Plasma [facility] Potassium [Moles/vol ume] in Serum or Plasma [facility] Potassium [Moles/vol ume] in Serum or Plasma [facility] Potassium [Moles/vol ume] in Serum or Plasma [facility] Potassium [Moles/vol ume] in Serum or Plasma [facility] Potassium [Moles/vol ume] in Serum or Plasma [facility] Potassium [Moles/vol ume] in Serum or Plasma [facility] Potassium [Moles/vol ume] in Serum or Plasma [facility] Potassium [Moles/vol ume] in Serum or Plasma [facility] Potassium [Moles/vol ume] in Serum or Plasma [facility] Potassium [Moles/vol ume] in Serum or Plasma [facility] Potassium [Moles/vol ume] in Serum or Plasma [facility] Potassium [Moles/vol ume] in Serum or Plasma [facility] Potassium [Moles/vol ume] in Serum or Plasma [facility] Red blood cell count [facility] Red blood cell count [facility] Red blood cell count [facility] Red blood cell count [facility] Red blood cell count [facility] Red blood cell count [facility] Red blood cell count [facility] Red cell distributio n width determination [facility] Red cell distributio n width determination [facility] Red cell distributio n width determination [facility] Red cell distributio n width determination [facility] Red cell distributio n width determination [facility] Red cell distributio n width determination [facility] Red cell distributio n width determination [facility] Respiratory pathogen s DNA and RNA panel - Respiratory specimen by DANIEL with probe detection [facility] Sodium [Moles/volume ] in Serum or Plasma [facility] Sodium [Moles/volume ] in Serum or Plasma [facility] Sodium [Moles/volume ] in Serum or Plasma [facility] Sodium [Moles/volume ] in Serum or Plasma [facility] Sodium [Moles/volume ] in Serum or Plasma [facility] Sodium [Moles/volume ] in Serum or Plasma [facility] Sodium [Moles/volume ] in Serum or Plasma [facility] Sodium [Moles/volume ] in Serum or Plasma [facility] Sodium [Moles/volume ] in Serum or Plasma [facility] Sodium [Moles/volume ] in Serum or Plasma [facility] Sodium [Moles/volume ] in Serum or Plasma [facility] Sodium [Moles/volume ] in Serum or Plasma [facility] Sodium [Moles/volume ] in Serum or Plasma [facility] Sodium [Moles/volume ] in Serum or Plasma [facility] T VAGINALIS AMPLIFICATION T VAGI NALIS AMPLIFICATION Lab Routine Screening for STD (sexually transmitted disease) Ordered: 04/18/2022 [facility] Work Phone: Comment on above: Ordered: 04/18/2022 TRICHOMONAS VAGINALI S NAAT TRICHOMONAS VAGINALIS NAAT Lab Routine Encounter for gynecological examination (general) (routine) without abnormal findings Encounter for screening for malignant neoplasm of cervix Screening for human papillomavirus (HPV) Irregular menstrual bleeding Routine screening for STI (sexually transmitted infection) 07/10/2024 12:13 PM [facility] Urea nitrogen [Mass/volume] in Serum or Plasma [facility] Urea nitrogen [Mass/volume] in Serum or Plasma [facility] Urea nitrogen [Mass/volume] in Serum or Plasma [facility] Urea nitrogen [Mass/volume] in Serum or Plasma [facility] Urea nitrogen [Mass/volume] in Serum or Plasma [facility] Urea nitrogen [Mass/volume] in Serum or Plasma [facility] Urea nitrogen [Mass/volume] in Serum or Plasma [facility] Urea nitrogen [Mass/volume] in Serum or Plasma [facility] Urea nitrogen [Mass/volume] in Serum or Plasma [facility] Urea nitrogen [Mass/volume] in Serum or Plasma [facility] Urea nitrogen [Mass/volume] in Serum or Plasma [facility] Urea nitrogen [Mass/volume] in Serum or Plasma [facility] Urea nitrogen [Mass/volume] in Serum or Plasma [facility] Urea nitrogen [Mass/volume] in Serum or Plasma [facility] Immunizations Immunization Date Immunization Notes Care Provider Genia bhat 11-05-2019 influenza, injectabl e, quadrivalent, preservative free Autumn Valadez COMPUTER SYSTEMS TECHNOLOGY INSTRUCTOR.TECHNICAL PROGRAMS MANAGER Work Phone: [facility] Work Phone: 11-05-2019 influenza virus vacc ine, unspecified formulation Leesa Huddleston PA-C Work Phone: [facility] 06-14-2016 influenza, seasonal, injectable Autumn Valadez COMPUTER SYSTEMS TECHNOLOGY INSTRUCTOR.TECHNICAL PROGRAMS MANAGER Work Phone: [facility] Work Phone: 05-30-2016 influenza nasal, unspecified formulation Autumn Valadez COMPUTER SYSTEMS TECHNOLOGY INSTRUCTOR.[facility] Work Phone: [facility] Work Phone: 05-30-2016 influenza virus vacc ine, unspecified formulation ANITA COMER MD [facility] 06-05-2015 influenza, seasonal, injectable, preservative free Autumn Valadez COMPUTER SYSTEMS TECHNOLOGY INSTRUCTOR.[facility] Work Phone: [facility] Work Phone: 05-23-2014 influenza virus vacc ine, unspecified formulation Leesa Huddleston PA-C Work Phone: [facility] 05-23-2014 influenza, seasonal, injectable [facility] Work Phone: 04-16-2014 tetanus toxoid, redu luis eduardo diphtheria toxoid, and acellular pertussis vaccine, adsorbed [facility] 01-01-2013 pneumococcal polysaccharide vaccine, 23 valent Autumn Valadez COMPUTER SYSTEMS TECHNOLOGY INSTRUCTOR.[facility] Work Phone: [facility] Work Phone: 08-11-2012 human papilloma viru s vaccine, quadrivalent Autumn Valadez COMPUTER SYSTEMS TECHNOLOGY INSTRUCTOR.[facility] Work Phone: [facility] Work Phone: 08-11-2012 HPV, unspecified formulation Leesa Huddleston PA-C Work Phone: [facility] 06-12-2012 human papilloma viru s vaccine, quadrivalent Autumn Valadez COMPUTER SYSTEMS TECHNOLOGY INSTRUCTOR.[facility] Work Phone: [facility] Work Phone: 05-09-2012 hepatitis A vaccine, pediatric/adolescent dosage, 2 dose schedule Autumn Valadez COMPUTER SYSTEMS TECHNOLOGY INSTRUCTOR.[facility] Work Phone: [facility] Work Phone: 05-09-2012 hepatitis A and hepatitis B vaccine Leesa Huddleston PA-C Work Phone: [facility] 11-03-2009 meningococcal polysaccharide (groups A, C, Y and W-135) diphtheria toxoid conjugate vaccine (MCV4P) Autumn Valadez COMPUTER SYSTEMS TECHNOLOGY INSTRUCTOR.TECHNICAL PROGRAMS MANAGER Work Phone: [facility] Work Phone: 11-03-2009 tetanus toxoid, redu luis eduardo diphtheria toxoid, and acellular pertussis vaccine, adsorbed Autumn Valadez COMPUTER SYSTEMS TECHNOLOGY INSTRUCTOR.[facility] Work Phone: [facility] Work Phone: Payers Date Payer Category Payer Self-pay 2022 Medicare HMO [employer]IC[employer] [id number] 2019 Medicare (Managed Care) [facility] [id number] 2019 Medicare [id number] 2017 Medicaid [id number] 2017 Medicare [id number] 2017 Medicare [id number] [id number]. [id number] 2012 Medicaid [id number] 1994 Unknown [id number] 2.0.1.638395.3.579.2. 903 Unknown [id number] .0.1.249018.3.579.2. 462 Unknown [id number] 2..1.308287.3.579.2. 462 Unknown [id number] 2.840.1.700139.3.579.2. 462 Unknown [id number] .0.1.605661.3.579.2. 462 Unknown [id number] 2.840.1.386451.3.579.2. 462 Unknown [id number] 2.840.1.186419.3.579.2. 462 Unknown [id number] 2.0.1.777303.3.579.2. 462 Unknown [id number] 2.16.840.1.628069.3.579.2. 462 Unknown [id number] 2.16.840.1.209841.3.579.2. 462 Unknown [id number] 2.16.840.1.357641.3.579.2. 462 Unknown [id number] 2.16.840.1.729217.3.579.2. 462 Unknown [id number] 2.16.840.1.247971.3.579.2. 462 Unknown [id number] 2.16.840.1.785694.3.579.2. 462 Unknown [id number] 2.16.840.1.516370.3.579.2. 462 Unknown [id number] 2.840.1.635167.3.579.2. 462 Unknown [id number] 2.840.1.865581.3.579.2. 462 Unknown [id number] 2.16.840.1.269840.3.579.2. 462 Unknown [id number] 2.16.840.1.546041.3.579.2. 462 Unknown [id number] 2.16.840.1.236483.3.579.2. 462 Unknown [id number] 2.16840.1.679327.3.579.2. 462 Unknown [id number] 2.16840.1.757258.3.579.2. 462 Unknown [id number] 2.16.840.1.224796.3.579.2. 462 Unknown [id number] 2.16.840.1.584755.3.579.2. 462 Unknown [id number] 2.16.840.1.465784.3.579.2. 462 Unknown [id number] 2.16.840.1.970252.3.579.2. 462 Unknown [id number] 2.16.840.1.286755.3.579.2. 462 Unknown [id number] 2.16.840.1.553273.3.579.2. 462 Unknown [id number] 2.16.840.1.847290.3.579.2. 462 Unknown [id number] 2.16.840.1.326194.3.579.2. 462 Unknown [id number] 2.16.840.1.971951.3.579.2. 462 Unknown [id number] 2.16.840.1.180833.3.579.2. 462 Unknown [id number] 2.16.840.1.211348.3.579.2. 462 Unknown [id number] 2.16.840.1.749122.3.579.2. 462 Unknown [id number] 2.16.840.1.630275.3.579.2. 462 Unknown [id number] 2.840.1.969268.3.579.2. 462 Unknown [id number] 2.16840.1.079280.3.579.2. 462 Unknown [id number] 2.840.1.945254.3.579.2. 462 Unknown [id number] 2.16840.1.744098.3.579.2. 462 Unknown [id number] 2.16.840.1.382825.3.579.2. 462 Unknown [id number] 2.16.840.1.461069.3.579.2. 462 Unknown [id number] 2.16.840.1.439064.3.579.2. 462 Unknown [id number] 2.16.840.1.932660.3.579.2. 462 Unknown [id number] 2.16.840.1.208592.3.579.2. 462 Unknown [id number] 2.16.840.1.141953.3.579.2. 462 Unknown [id number] 2.16.840.1.247193.3.579.2. 462 Unknown [id number] 2.16.840.1.154395.3.579.2. 462 Unknown [id number] 2.16.840.1.381611.3.579.2. 462 Unknown [id number] 2.16.840.1.559024.3.579.2. 462 Unknown [id number] 2.16.840.1.524649.3.579.2. 462 Unknown [id number] 2.16.840.1.095889.3.579.2. 462 Unknown [id number] 2.16840.1.235576.3.579.2. 462 Unknown [id number] 2.16840.1.939889.3.579.2. 462 Social History Date Type Detail Facility Start: 12-31-2019 End: 07-10-2024 Tobacco smoking status NHIS Ex-smoker [facility] Start: 06-28-2011 End: 06-28-2019 History of tobacco use Current smoker [facility] Start: 06-28-2011 End: 06-28-2019 History of tobacco use Cigarette Smoker [facility] Start: 12-31-2019 End: 11-14-2023 Cigarettes smoked current (pack per day) - Reported 0.3 [facility] Start: 12-31-2019 End: 07-10-2024 Tobacco use and exposure Smokeless tobacco non-user [facility] Start: 11-25-2020 End: 10-22-2022 Alcohol intake Current non-drinker of alcohol (finding) [facility] Start: 11-02-2020 End: 02-03-2023 History SDOH Social Connections Phone 5 [facility] Start: 11-02-2020 End: 02-03-2023 History SDOH Social Connections Protestant 1 [facility] Start: 11-02-2020 End: 02-03-2023 History SDOH Social Connections Membership 2 [facility] Start: 11-02-2020 History SDOH Social Connections Living 7 [facility] Start: 11-02-2020 History SDOH Physica l Activity DPW 4 [facility] Start: 11-02-2020 History SDOH Physica l Activity MPS 3 [facility] Start: 1995 [facility]: 04-26-2023 End: 08-07-2023 Tobacco smoking status Tobacco smoking consumption unknown (finding) [facility] Sex Assigned At Sex [facility] Start: 02-25-2022 End: 10-04-2022 Exposure to SARS-CoV-2 (event) Not sure [facility] Start: 12-08-2022 End: 07-19-2024 Alcohol intake Current drinker of alcohol (finding) [facility] Start: 12-08-2022 Education 13 [facility] Start: 12-08-2022 Alcohol Comment very rarely [facility] Start: 03-20-2023 Tobacco smoking stat [facility] Never smoked tobacco [facility] Start: 03-20-2023 End: 11-14-2023 Tobacco use panel [facility] Start: 03-20-2023 Alcohol Comment occasional [facility] Start: 1995 Sex Assigned At Not on file S [facility] Start: 10-30-2020 Gender identity Identifies as female gender (finding) [facility] Start: 10-30-2020 Sexual orientation Bisexual (finding ) [facility] Start: 01-18-2021 End: 11-14-2023 Alcohol intake Ex-drinker (finding) [facility] Do you belong to any clubs or organizations such as denominational groups, unions, fraternal or athletic groups, or school groups? No [facility] Are you now , , , , never or living with a partner? Never [facility] How hard is it for y ou to pay for the very basics like food, housing, medical care, and heating Not hard at all [facility] Do you feel stress - tense, restless, nervous, or anxious, or unable to sleep at night because your mind is troubled all the time - these days [OSQ] Not at all [facility] (I/We) worried wheth er (my/our) food would run out before (I/we) got money to buy more. Never true [facility] In the past 12 month s, was there a time when you were not able to pay the mortgage or rent on time? Yes [facility] Start: 03-28-2022 Sex Female (finding) [facility] NEGATED: Highlighted row [facility] Medical Equipment Procedure Code Equipment Code Equipment Original Text Equipment Identifier Dates Graft Vasc 30cm 28mm [facility] [address] - [id number] Start: 12-09-2014 Comment on above: Description: ascendi ng aorta Slv Scler 30mm 2.4mm 1.5mm Dinorah - [id number] Start: 10-29-2012 Comment on above: Description: Style # 72 Silicone Sleeve Strip Scler [id number] Dinorah Strl - [id number] Start: 10-29-2012 Comment on above: Description: Style 4 050 Gas Io Ispan Vsn Sys 125gm Sf6 - [id number] Start: 10-29-2012 Comment on above: Description: SF6 gas 22% [place] Cv 6x6in Thk1.65mm Ptfe - [id number] Start: 12-09-2014 Lens Iol +15.5 Mary Jo 13mm 5.5mm - [id number] Start: 05-14-2014 [id number], [id number], [id number], [id number], [id number], [id number] Start: 05-18-2020 End: 06-25-2025 Comment on above: Use as instructed to check blood glucose 7 times daily. 10 x daily DX Code: O24.011 on insulin RUFINA voucher has been faxed Use as instructed to check blood glucose 5 times daily. E10.65 Use as instructed to test blood sugar 4 times daily. E10.65 Pen Needle, Diabetic (Ultra-Thin Ii Ins Pen [place]) 29 gauge x 1/2 needle Start: 08-10-2023 Pen Needle, Diabetic (Ultra-Thin Ii Ins Pen [place]) 29 gauge x 1/2 needle Start: 08-10-2023 Pen Needle, Diabetic (Ultra-Thin Ii Ins Pen [place]) 29 gauge x 1/2 needle Start: 08-10-2023 Pen Needle, Diabetic (Ultra-Thin Ii Ins Pen [place]) 29 gauge x 1/2 needle Start: 08-10-2023 Pen Needle, Diabetic (Ultra-Thin Ii Ins Pen [place]) 29 gauge x 1/2 needle Start: 08-10-2023 Pen Needle, Diabetic (Ultra-Thin Ii Ins Pen [place]) 29 gauge x 1/2 needle Start: 08-10-2023 Loop Recorder-[id number] Reveal [id number] Start: 09-15-2014 Goals Date Patient Goal Desired Activity /State Personal health goal Functional Status Date Assessment Result Facility 10-18-2023 Functional status Ambulates [facility] Work Phone: 08-10-2023 Functional status Up ad narendra [facility] Work Phone: 04-29-2023 Functional status Ambulates;Bedr est;Bathro om Privilege [facility] Work Phone: 02-04-2023 Are you deaf, or do you have serious difficulty hearing No 02/04/2023 2:39 PM Jhoana Mart RN No [facility] 02-04-2023 Are you blind, or do you have serious difficulty seeing, even when wearing glasses No 02/04/2023 2:39 PM Jhoana Mart, STIVEN No [facility] 02-04-2023 Do you have serious difficulty walking or climbing stairs No 02/04/2023 2:39 PM Jhoana Mart, STIVEN No [facility] 02-04-2023 Do you have difficul ty dressing or bathing No 02/04/2023 2:39 PM Jhoana Mart, STIVEN No [facility] 02-04-2023 Because of a physica l, mental, or emotional condition, do you have difficulty doing errands alone such as visiting a physician's office or shopping No 02/04/2023 2:39 PM Jhoana Mart, STIVEN No [facility] Mental Status Date Assessment Result Facility 10-17-2023 Cognitive function Awake;Alert;Appropriat e [facility] Work Phone: 09-20-2023 Cognitive function Level Of Cons ciousness Awake;Alert;Appropriate;Fol lows Commands [facility] Work Phone: 08-10-2023 Cognitive function Voice/Name [facility] Work Phone: 04-29-2023 Cognitive function Voice/Name [facility] Work Phone: 04-26-2023 Cognitive function Voice/Name [facility] Work Phone: 02-04-2023 Because of a physica l, mental, or emotional condition, do you have serious difficulty concentrating, remembering, or making decisions No 02/04/2023 2:39 PM EDT Jhoana Colunga RN No [facility] Clinical Notes 01-28-2016 to 03-08-2025 Mishel Ortez PA-C - 01/27/2025 1:00 PM EDTTelephone Encounter - Guero Hammer LPN - 11/11/2024 1:55 PM EDTTelephone Encounter - Guero Hammer LPN - 11/11/2024 1:55 PM EDT Note Date & Type Note Facility 03-08-[address] [facility] 03-05-[address] [facility] 02-21-[address] [facility] 01-27-2025 History of Present illness Narrative DATE OF SERVICE: 01/27/2025 PATIENT NAME: Kathleen Villa : 1995 AGE: 29 y.o. CLINIC NUMBER: [id number] Visit type: Established patient Chief Complaint Patient presents with Skin Lesion (PKN) Subjective HISTORY OF PRESENT ILLNESS: Kathleen Villa is a 29 y.o. who presents to the office for a check up. Patient has never had an FSE before. C/o-skin lesion located on the left cheek x 1-2 years. Patient states the lesion is knight and slightly raised. Admits itching sometimes. Denies changes in size, shape, color. Pt admits hair growth in the mole. Denies previous treatment. F/u psoriasis; Last seen 11/14/2023 by Leesa Huddleston PA-C. Improved, stable since last visit. Currently treating with Skyrizi 150 mg injection every 12 weeks, ketoconazole 2% shampoo, and clobetasol 0.05% solution BID PRN. Patient states she does not use the topicals because they never worked for her. Pt states the Skyrizi keeps her skin pretty clear. Patient self administers injections at home without complications. Start date 02/2021. Last injection 01/15/2025. Last labs 08/15/2023. Denies flares currently. Denies redness, flaking, scaling. Denies itching, burning, pain. Admits joint pain/ joint stiffness to the knees, hips elbows. Patient states this is chronic and normal for her, denies worsening of pain. Follow up folliculitis of the lower legs; stable since last visit. Currently treating with clindamycin lotion daily as needed. Pt admits improvement with medication and requesting refills. Patient has no h/o of ATN. Patient has no h/o of AKs. Patient has no personal h/o skin cancer. Patient has family h/o melanoma: maternal aunt. Are you or ? No History of pacemaker/ defibrillator? No History of HIV/ Hep C? No Allergies to Lidocaine, Epinephrine, Latex or Adhesive? Yes- adhesives. Social History: Born/raised in [place]. Excessive sun exposure: Yes Used tanning beds: No Patient does wear SPF. Patient does use additional sun protection measures. Review of Systems Dermatology: as per HPI, otherwise negative Vitals: 01/27/25 1308 BP: 134/87 Pulse: 98 PHYSICAL EXAM: GENERAL APPEARANCE:?alert and oriented x3, well developed and well nourished. PSYCH: appropriate mood and affect DERMATOLOGY: Skin Exam 1. PSORIASIS VULGARIS Head - Anterior (Face) Skin clear on exam [x]Chronic []Acute [x]Stable []Flaring/Exacerbation Educated and reassured. Treatment options, risks, benefits, and expectations reviewed. Patient stopped using the ketoconazole shampoo and clobetasol solution. Pt states the Skyrizi keeps her skin clear. Biologic labs ordered today. Continue: -Skyrizi 150 mg injection every 12 weeks. 2. FOLLICULITIS Left Leg, Right Leg Clear on exam [x]Chronic []Acute [x]Stable []Flaring/Exacerbation Educated and reassured. Treatment options, risks, benefits, and expectations reviewed. Continue: -clindamycin lotion prn flares Related Medications clindamycin (Cleocin-T) 1 % lotion Apply thin layer to affected areas of bilateral legs every day. 3. 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 Educated that if the lesion changes color, becomes larger, bleeds, becomes bothersome or painful then it should be reevaluated. Patient expresses understanding and is agreeable to plan. Patient advised to perform monthly skin exams; checking the skin for any new or changing lesions. Any lesions that are new, elevated, firm and/or growing should be evaluated in our office. Also look for ABCDEs of Melanoma (warning signs): Asymmetry- the appearance of one side of the mole doesn't look like the other side. Borders- the borders of the mole are jagged, notched or smeared. Color- there are multiple colors in the mole, or it has changed colors. It can become darker, red or even lose pigment. Diameter- diameter greater than 6mm or the size of a pencil eraser. Evolution- Any change or evolving in size, shape or color of a mole. Also, any new symptom like bleeding, pain or itching may be a warning sign. You can visit the [employer] Cancer Foundation at skincancer.org for more information on melanoma and other skin cancers. 4. SEBORRHEIC KERATOSIS Generalized Knight-brown waxy papule(s) and plaque(s) Reassured that this is a benign lesion and does not require any treatment. Educated that if the lesion changes color, becomes larger, bleeds, becomes bothersome or painful then it should be reevaluated. Patient expresses understanding and is agreeable to plan. 5. SOLAR LENTIGO Generalized Light brown well-circumscribed macule(s) Educated and reassured, benign finding secondary to sun exposure. Patient educated on the proper use of sunscreen, SPF, and how often to reapply. Recommend use of OTC mineral sun block, like Neutrogena or [place]. Patient advised to look for zinc or titanium as the active ingredient(s). 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 Patient advised to perform self-skin checks and call for follow up appointment if any new or concerning lesions detected. Sunscreen Use & Sun Safety It is recommended a water-resistant, broad-spectrum sunscreen with SPF of at least 15 to 30. Apply sunscreen to all exposed skin 30 minutes before sun exposure, and then every 2 hours. Apply sooner if sweating or coming out of pool/water. Using the proper amount of sunscreen in important. An adult should use about 1-1.5 oz of sunscreen to the entire body, about 2-3 tablespoons per application. Use a lip balm with SPF 30 or higher to protect the lips from sun damage. Limit time in the sun, especially between 10 AM and 2 PM when the sun s rays are the strongest. Clothing labeled with a UPF (ultra-steve protection factor) rating indicates that it s protective against UV rays. Also, wear wide-brimmed hats, and sunglasses for sun protection. 6. DERMATOFIBROMA Right Thigh - Anterior Firm hyperpigmented papule(s) This is a benign growth that may occur secondary to trauma or insect bite, although the exact cause or manner of development is unknown. 7. CODY ANGIOMA Generalized Bright red vascular papule(s) Reassured and educated, benign finding. 8. SCREENING FOR VIRAL DISEASE Related Procedures Hepatitis A antibody, IgM Hepatitis B core antibody, IgM Hepatitis B surface antibody Hepatitis B surface antigen Hepatitis C antibody HIV-1 and HIV-2 Antigen-Antibody Screen 9. ENCOUNTER FOR SCREENING FOR RESPIRATORY TUBERCULOSIS Related Procedures QUANTIFERON TB GOLD 10. ENCOUNTER FOR LONG-TERM (CURRENT) USE OF MEDICATIONS Related Procedures CBC auto differential Comprehensive metabolic panel Hepatitis A antibody, IgM Hepatitis B core antibody, IgM Hepatitis B surface antibody Hepatitis B surface antigen Hepatitis C antibody HIV-1 and HIV-2 Antigen-Antibody Screen QUANTIFERON TB GOLD Follow up in about 6 months (around 2025) for psoriasis f/u, one year FSE. Mishel Ortez PA-C 01/27/25 1:44 PM REFERRING MD: No referring provider defined for this encounter. documented in this encounter [facility] 01-26-[address] [facility] 12-16-[address] [facility] 11-11-2024 Telephone encounter Note Please let her know that her x-ray demonstrates a significantly large amount of stool throughout the colon. I am going to send in Trulance for her to try spoke with patient and she is aware of new Rx was sent to pharmacy. Guero Hammer LPN [facility] 11-11-2024 Miscellaneous Notes Please let her know that her x-ray demonstrates a significantly large amount of stool throughout the colon. I am going to send in Trulance for her to try spoke with patient and she is aware of new Rx was sent to pharmacy. Guero Hammer LPN documented in this encounter [facility] 11-11-2024 History of Present illness Narrative Radiology Service Progress Note PATIENT NAME: Kathleen Villa DATE OF SERVICE: November 11, 2024 TIME: 11:07 AM PATIENT IDENTITY VERIFICATION COMPLETED USING TWO (2) IDENTIFIERS: Name and Date of confirmed by patient verbally and Name and Date of confirmed by identification band. FALL SCREENING: Has the patient had 2 falls in the last year or 1 fall with injury or currently using an Ambulatory Assistive Device (Walker, Cane, Wheelchair, Crutches, etc.)? No PATIENT GENDER DATA: Assigned female at . status: : No status: NO. PATIENT RELEVANT IMPLANT DATA REVIEWED: Not Applicable PATIENT PRESENTS WITH AN IMPLANTABLE OR ATTACHED MILL MANAGER: No RADIOLOGY DEPARTMENT: General X-ray: Exam(s) Completed: Abdomen X-Ray: Abdomen PERIPHERAL IV DATA: Not applicable SIGNED BY: RT Eugenio(R) November 11, 2024 11:07 AM documented in this encounter [facility] 11-11-2024 Note HNO ID: [id number] Author: RICCARDO, VAMSI, RT(R) Service: Radiology Author Type: Technologist Type: Progress Notes Filed: 11/11/2024 11:07 Note Text: Radiology Service Progress Note PATIENT NAME: Kathleen Villa DATE OF SERVICE: November 11, 2024 TIME: 11:07 AM PATIENT IDENTITY VERIFICATION COMPLETED USING TWO (2) IDENTIFIERS: Name and Date of confirmed by patient verbally and Name and Date of confirmed by identification band. FALL SCREENING: Has the patient had 2 falls in the last year or 1 fall with injury or currently using an Ambulatory Assistive Device (Walker, Cane, Wheelchair, Crutches, etc.)? No PATIENT GENDER DATA: Assigned female at . status: : No status: NO. PATIENT RELEVANT IMPLANT DATA REVIEWED: Not Applicable PATIENT PRESENTS WITH AN IMPLANTABLE OR ATTACHED MILL MANAGER: No RADIOLOGY DEPARTMENT: General X-ray: Exam(s) Completed: Abdomen X-Ray: Abdomen PERIPHERAL IV DATA: Not applicable SIGNED BY: RT Eugenio(R) November 11, 2024 11:07 AM [facility] 11-11-2024 Note HNO ID: [id number] Author: LETICIA HYLTON, DO Service: ? Author Type: Physician Type: Progress Notes Filed: 11/11/2024 10:44 Note Text: FOLLOW UP VISIT CHIEF COMPLAINT Patient presents with: Recheck: F/u visit with abdominal discomfort x 4 weeks Ms. Villa is here today for follow-up of: nausea abdominal pain. HPI I saw this 29y/o in follow up for her gi issues. She developed abd pain followed by pain in the flanks. She was treated with ATB without relief. She describes the pain as electric shock feeling. Her bowels are moving relatively well. The blood sugars are erratic with both high and low. The patient has had 2 smart pills with identical GET of 4hr 6min. Current Outpatient Medications Medication Sig Dispense Refill Doxepin 6 mg tab Take 6 mg by mouth daily at bedtime. QUEtiapine XR (SEROQUEL XR) 50 mg Tb24 Take 50 mg by mouth daily at bedtime. Acetone, Urine, Test (KETONE URINE TEST) In case of concern with DKA, to be used at home 100 Each 3 busPIRone (BUSPAR) 5 mg tablet Take 1 tablet by mouth every 12 hours. mirtazapine (REMERON) 15 mg tablet Take 15 mg by mouth daily at bedtime. insulin glargine (LANTUS SOLOSTAR U-100 INSULIN) 100 unit/mL (3 mL) Inject 43 Units subcutaneously every 24 hours. 38.7 mL 1 Insulin [place], Disposable, (PEN NEEDLE) 32 gauge x /32 Inject 4 Each subcutaneously every 24 hours. Give with each insulin administration. 360 Each 3 insulin lispro (HUMALOG KWIKPEN) 100 unit/mL Please inject three times a day with meals- 1 unit for every 10 grams of carbs AND sliding scale 1 ADMINISTER SUPPLEMENTAL INSULIN REGARDLESS OF MEAL OR NUTRITION INTAKE: If Blood Glucose (mg/dL) is <110 Give 0 units 111-150 Give 0 units 151-200 Give 1 unit 201-250 Give 2 units 251-300 Give 3 units 301-350 Give 4 units 351-400 Give 5 units >400 give 5 units and notify provider. MAX TDD 40 units 45 mL 3 Lancets (MICROLET LANCET) Use as instructed to test blood sugar 4 times daily. E10.65 400 Each 3 insulin lispro (HUMALOG U-100 INSULIN) 100 unit/mL injection Use in the Insulin Pump for TDD of 100 units. 90 mL 1 Needle, Disp, 23 G 23 gauge x 1 ndle Use to inject Solucortef intramuscularly 10 Each 1 promethazine (PHENERGAN) 25 mg tablet Take 1 tablet by mouth every 6 hours as needed. 30 tablet 0 blood sugar diagnostic (CONTOUR NEXT TEST STRIPS) test strip Use as instructed to check blood glucose 5 times daily. E10.65 500 Strip 3 lubiprostone (AMITIZA) 8 mcg capsule Take 1 capsule by mouth twice daily with meals. 60 capsule 5 prochlorperazine (COMPAZINE) 10 mg tablet Take 1 tablet by mouth every 6 hours as needed. 15 tablet 0 glucose 4 gram chewable tablet Take 4 tablets by mouth as needed. 100 tablet 11 SKYRIZI 150 mg/mL injection INJECT 150 MG UNDER THE SKIN EVERY 12 WEEKS No current facility-administered medications for this visit. ALLERGIES Allergen Reactions Keflex [Cephalexin] Other: See Comments Yeast infection Morphine Rash, Itching Zofran [Ondansetron* Other: See Comments Syncope, incontinence Adhesive Tape (Lidia* Rash Indomethacin Rash Percocet [Oxycodone* Rash, Intolerance, Itching Adhesive Rash Social History Tobacco Use Smoking status: Former Current packs/day: 0.00 Average packs/day: 0.3 packs/day for 8.0 years (2.4 ttl pk-yrs) Types: Cigarettes Start date: 06/2011 Quit date: 06/2019 Years since quittin.3 Smokeless tobacco: Never Vaping Use Vaping status: Never Used Substance Use Topics Alcohol use: Yes Comment: very rarely Drug use: Yes Types: Marijuana Comment: medical card previous, daily Medical History: No changes since last visit. REVIEW OF SYSTEMS: GENERAL: weight stable, no fevers. 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 Reviewed with patient during visit today. PHYSICAL EXAMINATION: BP 103/66 Pulse 107 Ht 5' 9 (1.75m) Wt 169 lb 12.1 oz (77.0kg) LMP 06/04/2024 BMI 25.06 kg/(m2). GENERAL APPEARANCE: Well developed and well nourished. SKIN: Skin color, texture, turgor normal. No rashes or lesions. EYES: Conjunctiva normal without icterus. OROPHARYNX: lips, mucosa, and tongue normal, teeth and gums normal NECK: Supple, full range of motion, no lymphadenopathy, normal thyroid, no carotid bruits and no JVD LUNGS: Normal breath sounds, Clear to auscultation, No wheezes, No crackles. HEART:Normal PMI, Regular rate and rhythm, Normal heart sounds, S1 and S2 and No murmurs. NEURO: Alert and oriented in no acute distress. ABDOMEN: Normal bowel sounds, abdomen flat with no distention, Soft, non-tender, no hepatomegaly. no palpable masses, no abdominal bruits, no rebound and no rigidity. EXTREMITIES:Extremities normal, No deformities, No skin discoloration, No edema . Assessment Encounter Diagnosis ICD-10-CM 1. Chronic idiopathic constipation K59.04 XR ABDOMEN 1V SUPINE (more content not included)... [facility] 11-11-2024 History of Present illness Narrative FOLLOW UP VISIT CHIEF COMPLAINT Patient presents with: Recheck: F/u visit with abdominal discomfort x 4 weeks Ms. Villa is here today for follow-up of: nausea abdominal pain. HPI I saw this 29y/o in follow up for her gi issues. She developed abd pain followed by pain in the flanks. She was treated with ATB without relief. She describes the pain as electric shock feeling. Her bowels are moving relatively well. The blood sugars are erratic with both high and low. The patient has had 2 smart pills with identical GET of 4hr 6min. Current Outpatient Medications Medication Sig Dispense Refill Doxepin 6 mg tab Take 6 mg by mouth daily at bedtime. QUEtiapine XR (SEROQUEL XR) 50 mg Tb24 Take 50 mg by mouth daily at bedtime. Acetone, Urine, Test (KETONE URINE TEST) In case of concern with DKA, to be used at home 100 Each 3 busPIRone (BUSPAR) 5 mg tablet Take 1 tablet by mouth every 12 hours. mirtazapine (REMERON) 15 mg tablet Take 15 mg by mouth daily at bedtime. insulin glargine (LANTUS SOLOSTAR U-100 INSULIN) 100 unit/mL (3 mL) Inject 43 Units subcutaneously every 24 hours. 38.7 mL 1 Insulin [place], Disposable, (PEN NEEDLE) 32 gauge x 5/32 Inject 4 Each subcutaneously every 24 hours. Give with each insulin administration. 360 Each 3 insulin lispro (HUMALOG KWIKPEN) 100 unit/mL Please inject three times a day with meals- 1 unit for every 10 grams of carbs AND sliding scale 1 ADMINISTER SUPPLEMENTAL INSULIN REGARDLESS OF MEAL OR NUTRITION INTAKE: If Blood Glucose (mg/dL) is <110 Give 0 units 111-150 Give 0 units 151-200 Give 1 unit 201-250 Give 2 units 251-300 Give 3 units 301-350 Give 4 units 351-400 Give 5 units >400 give 5 units and notify provider. MAX TDD 40 units 45 mL 3 Lancets (MICROLET LANCET) Use as instructed to test blood sugar 4 times daily. E10.65 400 Each 3 insulin lispro (HUMALOG U-100 INSULIN) 100 unit/mL injection Use in the Insulin Pump for TDD of 100 units. 90 mL 1 Needle, Disp, 23 G 23 gauge x 1 ndle Use to inject Solucortef intramuscularly 10 Each 1 promethazine (PHENERGAN) 25 mg tablet Take 1 tablet by mouth every 6 hours as needed. 30 tablet 0 blood sugar diagnostic (CONTOUR NEXT TEST STRIPS) test strip Use as instructed to check blood glucose 5 times daily. E10.65 500 Strip 3 lubiprostone (AMITIZA) 8 mcg capsule Take 1 capsule by mouth twice daily with meals. 60 capsule 5 prochlorperazine (COMPAZINE) 10 mg tablet Take 1 tablet by mouth every 6 hours as needed. 15 tablet 0 glucose 4 gram chewable tablet Take 4 tablets by mouth as needed. 100 tablet 11 SKYRIZI 150 mg/mL injection INJECT 150 MG UNDER THE SKIN EVERY 12 WEEKS No current facility-administered medications for this visit. ALLERGIES Allergen Reactions Keflex [Cephalexin] Other: See Comments Yeast infection Morphine Rash, Itching Zofran [Ondansetron* Other: See Comments Syncope, incontinence Adhesive Tape (Lidia* Rash Indomethacin Rash Percocet [Oxycodone* Rash, Intolerance, Itching Adhesive Rash Social History Tobacco Use Smoking status: Former Current packs/day: 0.00 Average packs/day: 0.3 packs/day for 8.0 years (2.4 ttl pk-yrs) Types: Cigarettes Start date: 06/2011 Quit date: 06/2019 Years since quittin.3 Smokeless tobacco: Never Vaping Use Vaping status: Never Used Substance Use Topics Alcohol use: Yes Comment: very rarely Drug use: Yes Types: Marijuana Comment: medical card previous, daily Medical History: No changes since last visit. REVIEW OF SYSTEMS: GENERAL: weight stable, no fevers. 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 Reviewed with patient during visit today. PHYSICAL EXAMINATION: BP 103/66 Pulse 107 Ht 5' 9 (1.75m) Wt 169 lb 12.1 oz (77.0kg) LMP 06/04/2024 BMI 25.06 kg/(m^2). GENERAL APPEARANCE: Well developed and well nourished. SKIN: Skin color, texture, turgor normal. No rashes or lesions. EYES: Conjunctiva normal without icterus. OROPHARYNX: lips, mucosa, and tongue normal, teeth and gums normal NECK: Supple, full range of motion, no lymphadenopathy, normal thyroid, no carotid bruits and no JVD LUNGS: Normal breath sounds, Clear to auscultation, No wheezes, No crackles. HEART:Normal PMI, Regular rate and rhythm, Normal heart sounds, S1 and S2 and No murmurs. NEURO: Alert and oriented in no acute distress. ABDOMEN: Normal bowel sounds, abdomen flat with no distention, Soft, non-tender, no hepatomegaly. no palpable masses, no abdominal bruits, no rebound and no rigidity. EXTREMITIES:Extremities normal, No deformities, No skin discoloration, No edema . Assessment Encounter Diagnosis ICD-10-CM 1. Chronic idiopathic constipation K59.04 XR ABDOMEN 1V SUPINE 2. Abdominal pain, suprapubic R10.2 Will check the xray and start from there Leticia Hylton DO 11/11/2024 documented in this encounter [facility] 11-06-[address] [facility] 11-05-2024 Miscellaneous Notes Agree with ER. The patient actually does not have gastroparesis although she keeps stating that she does. Her smart pill in 2020 demonstrated no evidence of gastroparesis. What she has is chronic constipation and abdominal pain. Called patient and she is crying in pain Patient she is miserable for 3 weeks with pain and nausea and vomiting.She went to ER x 2 and she was send back home withy some atb for uti and nausea meds.Per patient statement ER dr told her is her GP pain and she need check with us.During phone conversation patient is crying and she can't hold the pain.Her BM are normal (soft and she is not constipated.Patient encouraged to go back to ER d/I increasing pain and she can not functioning appropriately. Please advice. Guero Hammer LPN Patient called and left v/m crying. States she has an appointment but is having some major issues and needs to talk to someone about what to do. She did not state what kinds of issues she is having however she was crying on the phone. documented in this encounter [facility] 11-05-2024 Telephone encounter Note Agree with ER. The patient actually does not have gastroparesis although she keeps stating that she does. Her smart pill in 2020 demonstrated no evidence of gastroparesis. What she has is chronic constipation and abdominal pain. [facility] 11-05-2024 Telephone encounter Note Called patient and she is crying in pain Patient she is miserable for 3 weeks with pain and nausea and vomiting.She went to ER x 2 and she was send back home withy some atb for uti and nausea meds.Per patient statement ER dr told her is her GP pain and she need check with us.During phone conversation patient is crying and she can't hold the pain.Her BM are normal (soft and she is not constipated.Patient encouraged to go back to ER d/I increasing pain and she can not functioning appropriately. Please advice. Guero Hammer LPN [facility] 11-05-2024 Telephone encounter Note Patient called and left v/m crying. States she has an appointment but is having some major issues and needs to talk to someone about what to do. She did not state what kinds of issues she is having however she was crying on the phone. [facility] Work Phone: 10-21-[address] [facility] 10-10-2024 Telephone encounter Note Form re-faxed per [facility] request [facility] 10-10-2024 Miscellaneous Notes Form re-faxed per [facility] request Form signed. Jessica Guerrero APRN.CNP Clinical notes and DWO for infusion supplies placed on providers desk to review and advise. To be faxed to [facility] Medical [phone] Patient has been identified by name and date of : Yes Type of form: [facility] Medical Physician Order for Insulin Pump Therapy and Diabetes Testing Form received via: abstract When form is completed, fax form to fax number provided. Form has been forwarded to: Provider's mailbox. Provider name: FRIEDA Urena documented in this encounter [facility] 10-02-2024 Telephone encounter Note Form signed. Jessica Guerrero APRN.CNP [facility] 10-02-2024 Telephone encounter Note Clinical notes and DWO for infusion supplies placed on providers desk to review and advise. To be faxed to [facility] Medical [phone] [facility] 10-02-2024 Telephone encounter Note Patient has been identified by name and date of : Yes Type of form: [facility] Medical Physician Order for Insulin Pump Therapy and Diabetes Testing Form received via: abstract When form is completed, fax form to fax number provided. Form has been forwarded to: Provider's mailbox. Provider name: FRIEDA Urena [facility] 09-02-2024 Note HNO ID: [id number] Author: LETICIA HYLTON, DO Service: ? Author Type: Physician Type: Progress Notes Filed: 09/02/2024 09:32 Note Text: FOLLOW UP VIRTUAL VISIT I have communicated my name and active licensure. The patient's identity and physical location were verified at the time of this visit. Either the patient or their legal sales representative raw fibers has been informed of the risks and benefits of -- and alternatives to -- treatment through a remote evaluation and consents to proceed with the evaluation remotely. This visit was conducted as a virtual visit. CHIEF COMPLAINT Patient presents with: Constipation Nausea Ms. Villa is here today for follow-up of: nausea constipation. HPI I saw this patient in follow up for the gi issues by virtual visit. The patient was last seen 02/07/2023 for these problems. Smart pill in 2020 was essentially unremarkable. She has recently been vomiting more and noted that hot baths have helped. The bowels remain erratic at best. Current Outpatient Medications Medication Sig Dispense Refill Acetone, Urine, Test (KETONE URINE TEST) In case of concern with DKA, to be used at home 100 Each 3 busPIRone (BUSPAR) 5 mg tablet Take 1 tablet by mouth every 12 hours. mirtazapine (REMERON) 15 mg tablet Take 15 mg by mouth daily at bedtime. insulin glargine (LANTUS SOLOSTAR U-100 INSULIN) 100 unit/mL (3 mL) Inject 43 Units subcutaneously every 24 hours. 38.7 mL 1 Insulin Branch[place], Disposable, (PEN NEEDLE) 32 gauge x 5/32 Inject 4 Each subcutaneously every 24 hours. Give with each insulin administration. 360 Each 3 insulin lispro (HUMALOG KWIKPEN) 100 unit/mL Please inject three times a day with meals- 1 unit for every 10 grams of carbs AND sliding scale 1 ADMINISTER SUPPLEMENTAL INSULIN REGARDLESS OF MEAL OR NUTRITION INTAKE: If Blood Glucose (mg/dL) is <110 Give 0 units 111-150 Give 0 units 151-200 Give 1 unit 201-250 Give 2 units 251-300 Give 3 units 301-350 Give 4 units 351-400 Give 5 units >400 give 5 units and notify provider. MAX TDD 40 units 45 mL 3 Lancets (MICROLET LANCET) Use as instructed to test blood sugar 4 times daily. E10.65 400 Each 3 insulin lispro (HUMALOG U-100 INSULIN) 100 unit/mL injection Use in the Insulin Pump for TDD of 100 units. 90 mL 1 Needle, Disp, 23 G 23 gauge x 1 ndle Use to inject Solucortef intramuscularly 10 Each 1 promethazine (PHENERGAN) 25 mg tablet Take 1 tablet by mouth every 6 hours as needed. 30 tablet 0 blood sugar diagnostic (CONTOUR NEXT TEST STRIPS) test strip Use as instructed to check blood glucose 5 times daily. E10.65 500 Strip 3 lubiprostone (AMITIZA) 8 mcg capsule Take 1 capsule by mouth twice daily with meals. 60 capsule 5 prochlorperazine (COMPAZINE) 10 mg tablet Take 1 tablet by mouth every 6 hours as needed. 15 tablet 0 glucose 4 gram chewable tablet Take 4 tablets by mouth as needed. 100 tablet 11 SKYRIZI 150 mg/mL injection INJECT 150 MG UNDER THE SKIN EVERY 12 WEEKS No current facility-administered medications for this visit. ALLERGIES Allergen Reactions Keflex [Cephalexin] Other: See Comments Yeast infection Morphine Rash, Itching Zofran [Ondansetron* Other: See Comments Syncope, incontinence Adhesive Tape (Lidia* Rash Indomethacin Rash Percocet [Oxycodone* Rash, Intolerance, Itching Adhesive Rash Social History Tobacco Use Smoking status: Former Current packs/day: 0.00 Average packs/day: 0.3 packs/day for 8.0 years (2.4 ttl pk-yrs) Types: Cigarettes Start date: 06/2011 Quit date: 06/2019 Years since quittin.1 Smokeless tobacco: Never Vaping Use Vaping status: Never Used Substance Use Topics Alcohol use: Yes Comment: very rarely Drug use: Yes Types: Marijuana Comment: medical card previous, daily Medical History: No changes since last visit. REVIEW OF SYSTEMS: GENERAL: weight stable, no fevers. CARDIOVASCULAR: No chest pain, no edema RESPIRATORY: No dyspnea : Negative BRAZING MACHINE SETTER: Negative The remainder of the review of systems are negative. Reviewed with patient during visit today. PHYSICAL EXAMINATION: LMP 06/04/2024 Estimated weight: GENERAL APPEARANCE: Well developed and well nourished. SKIN: Skin color, texture, turgor normal. No rashes or lesions. EYES: Conjunctiva normal without icterus. OROPHARYNX: lips, mucosa, and tongue normal, teeth and gums normal NECK: no JVD LUNGS: Normal respirations on RA HEART:pt describes normal heart rythm NEURO: Alert and oriented in no acute distress. ABDOMEN: nondistended EXTREMITIES:Extremities normal, No deformities, No skin discoloration, No edema . Assessment Encounter Diagnosis ICD-10-CM 1. Chronic idiopathic constipation K59.04 2. Gastroparesis K31.84 She will call the squad to take to the local ER Leticia Hylton DO 09/02/2024 [facility] 09-02-2024 History of Present illness Narrative FOLLOW UP VIRTUAL VISIT I have communicated my name and active licensure. The patient's identity and physical location were verified at the time of this visit. Either the patient or their legal sales representative raw fibers has been informed of the risks and benefits of -- and alternatives to -- treatment through a remote evaluation and consents to proceed with the evaluation remotely. This visit was conducted as a virtual visit. CHIEF COMPLAINT Patient presents with: Constipation Nausea Ms. Villa is here today for follow-up of: nausea constipation. HPI I saw this patient in follow up for the gi issues by virtual visit. The patient was last seen 02/07/2023 for these problems. Smart pill in 2020 was essentially unremarkable. She has recently been vomiting more and noted that hot baths have helped. The bowels remain erratic at best. Current Outpatient Medications Medication Sig Dispense Refill Acetone, Urine, Test (KETONE URINE TEST) In case of concern with DKA, to be used at home 100 Each 3 busPIRone (BUSPAR) 5 mg tablet Take 1 tablet by mouth every 12 hours. mirtazapine (REMERON) 15 mg tablet Take 15 mg by mouth daily at bedtime. insulin glargine (LANTUS SOLOSTAR U-100 INSULIN) 100 unit/mL (3 mL) Inject 43 Units subcutaneously every 24 hours. 38.7 mL 1 Insulin [place], Disposable, (PEN NEEDLE) 32 gauge x 5/32 Inject 4 Each subcutaneously every 24 hours. Give with each insulin administration. 360 Each 3 insulin lispro (HUMALOG KWIKPEN) 100 unit/mL Please inject three times a day with meals- 1 unit for every 10 grams of carbs AND sliding scale 1 ADMINISTER SUPPLEMENTAL INSULIN REGARDLESS OF MEAL OR NUTRITION INTAKE: If Blood Glucose (mg/dL) is <110 Give 0 units 111-150 Give 0 units 151-200 Give 1 unit 201-250 Give 2 units 251-300 Give 3 units 301-350 Give 4 units 351-400 Give 5 units >400 give 5 units and notify provider. MAX TDD 40 units 45 mL 3 Lancets (MICROLET LANCET) Use as instructed to test blood sugar 4 times daily. E10.65 400 Each 3 insulin lispro (HUMALOG U-100 INSULIN) 100 unit/mL injection Use in the Insulin Pump for TDD of 100 units. 90 mL 1 Needle, Disp, 23 G 23 gauge x 1 ndle Use to inject Solucortef intramuscularly 10 Each 1 promethazine (PHENERGAN) 25 mg tablet Take 1 tablet by mouth every 6 hours as needed. 30 tablet 0 blood sugar diagnostic (CONTOUR NEXT TEST STRIPS) test strip Use as instructed to check blood glucose 5 times daily. E10.65 500 Strip 3 lubiprostone (AMITIZA) 8 mcg capsule Take 1 capsule by mouth twice daily with meals. 60 capsule 5 prochlorperazine (COMPAZINE) 10 mg tablet Take 1 tablet by mouth every 6 hours as needed. 15 tablet 0 glucose 4 gram chewable tablet Take 4 tablets by mouth as needed. 100 tablet 11 SKYRIZI 150 mg/mL injection INJECT 150 MG UNDER THE SKIN EVERY 12 WEEKS No current facility-administered medications for this visit. ALLERGIES Allergen Reactions Keflex [Cephalexin] Other: See Comments Yeast infection Morphine Rash, Itching Zofran [Ondansetron* Other: See Comments Syncope, incontinence Adhesive Tape (Lidia* Rash Indomethacin Rash Percocet [Oxycodone* Rash, Intolerance, Itching Adhesive Rash Social History Tobacco Use Smoking status: Former Current packs/day: 0.00 Average packs/day: 0.3 packs/day for 8.0 years (2.4 ttl pk-yrs) Types: Cigarettes Start date: 06/2011 Quit date: 06/2019 Years since quittin.1 Smokeless tobacco: Never Vaping Use Vaping status: Never Used Substance Use Topics Alcohol use: Yes Comment: very rarely Drug use: Yes Types: Marijuana Comment: medical card previous, daily Medical History: No changes since last visit. REVIEW OF SYSTEMS: GENERAL: weight stable, no fevers. CARDIOVASCULAR: No chest pain, no edema RESPIRATORY: No dyspnea : Negative BRAZING MACHINE SETTER: Negative The remainder of the review of systems are negative. Reviewed with patient during visit today. PHYSICAL EXAMINATION: [facility] 06/04/2024 Estimated weight: GENERAL APPEARANCE: Well developed and well nourished. SKIN: Skin color, texture, turgor normal. No rashes or lesions. EYES: Conjunctiva normal without icterus. OROPHARYNX: lips, mucosa, and tongue normal, teeth and gums normal NECK: no JVD LUNGS: Normal respirations on RA HEART:pt describes normal heart rythm NEURO: Alert and oriented in no acute distress. ABDOMEN: nondistended EXTREMITIES:Extremities normal, No deformities, No skin discoloration, No edema . Assessment Encounter Diagnosis ICD-10-CM 1. Chronic idiopathic constipation K59.04 2. Gastroparesis K31.84 She will call the squad to take to the local ER Leticia Hylton DO 09/02/2024 documented in this encounter [facility] 08-07-2024 Telephone encounter Note Medication: Skyrizi 150mg/ml Dosing Schedule: 150mg every 12 weeks Prior Authorization: Submitted date: 08.07.2024 [place] reference #: [id number] Approval dates: 08.07.2024-08.27.[address] [facility] [phone] [facility] 08-07-2024 Miscellaneous Notes Medication: Skyrizi 150mg/ml Dosing Schedule: 150mg every 12 weeks Prior Authorization: Submitted date: 08.07.2024 [place] reference #: [id number] Approval dates: 08.07.2024-08.27.[address] [facility] [phone] documented in this encounter [facility] 08-03-[address] [facility] 07-24-2024 Telephone encounter Note [facility] form for CGM /Pump completed and signed per Provider for Medtronic 780G pump and Guardian 4. Completed form and JOSE X2 documentation faxed as requested to [facility]. Lisa Aguilar LPN [facility] 07-24-2024 Miscellaneous Notes [facility] form for CGM /Pump completed and signed per Provider for Medtronic 780G pump and Guardian 4. Completed form and JOSE X2 documentation faxed as requested to [facility]. Lisa Aguilar LPN Images from the original note were not included. Jessica Guerrero APRN.FRIEDA Garrido Ma Pool She was able to get upgraded pump recently. I am sending her to [facility] and medtronic to start. She will need new supplies from [facility] including Guardian 4 CGM and supplies for Medtronic 780 G. Jessica Guerrero APRN.TECHNICAL PROGRAMS MANAGER documented in this encounter [facility] 07-23-2024 Note HNO ID: [id number] Author: VAMSI CARSON RN Service: ? Author Type: Registered Nurse Type: Progress Notes Filed: 07/23/2024 09:04 Note Text: DIABETES CARE AND EDUCATION VISIT Location: [place] Type of visit: In person individual PATIENT'S MAIN CONCERN TODAY: Help with transferring settings Support person present for education today: none Cognitive ability: Alert and oriented Motivation to learn: Interested Learning barriers identified by educator: none Method of instruction: written, verbal, and demonstration ICR - 10 ISF - 30 Targets - 100-120 AIT - 3 1.8 units/ hr Reviewed with patient how to transfer settinngs from her temporary 670g to her permanent 770g. She does not use sensor with it. She's working with [employer] to get the 780g upgrade and compatible CGM for Hybrid Closed Loop HANDOUTS: None LEARNING RESPONSE: Taking medications: Demonstrated understanding/competency today or at previous visit POSSIBLE FUTURE TOPICS: 1. DIABETES CARE AND EDUCATION PLAN: Individual follow-up as needed Time Spent (Minutes): 20 This visit note will be communicated to the healthcare provider via access to shared medical record. SIGNATURE: Vamsi Carson RN PATIENT NAME: Kathleen Villa DATE: July 23, 2024 TIME: 8:47 AM [facility] 07-23-2024 History of Present illness Narrative DIABETES CARE AND EDUCATION VISIT Location: [place] Type of visit: In person individual PATIENT'S MAIN CONCERN TODAY: Help with transferring settings Support person present for education today: none Cognitive ability: Alert and oriented Motivation to learn: Interested Learning barriers identified by educator: none Method of instruction: written, verbal, and demonstration ICR - 10 ISF - 30 Targets - 100-120 AIT - 3 1.8 units/ hr Reviewed with patient how to transfer settinngs from her temporary 670g to her permanent 770g. She does not use sensor with it. She's working with [employer] to get the 780g upgrade and compatible CGM for Hybrid Closed Loop HANDOUTS: None LEARNING RESPONSE: Taking medications: Demonstrated understanding/competency today or at previous visit POSSIBLE FUTURE TOPICS: 1. DIABETES CARE AND EDUCATION PLAN: Individual follow-up as needed Time Spent (Minutes): 20 This visit note will be communicated to the healthcare provider via access to shared medical record. SIGNATURE: Vamsi Carson RN PATIENT NAME: Kathleen Swain Daisy DATE: July 23, 2024 TIME: 8:47 AM documented in this encounter [facility] 07-19-2024 Telephone encounter Note Images from the original note were not included. Jessica Guerrero APRN.FRIEDA Garrido Silvino Isma She was able to get upgraded pump recently. I am sending her to [employer] and [employer] to start. She will need new supplies from [facility] including Guardian 4 CGM and supplies for Medtronic 780 G. Jessica Guerrero APRN.TECHNICAL PROGRAMS MANAGER [facility] 07-19-2024 History of Present illness Narrative [facility] DIABETES VISIT VIRTUAL VISIT I have communicated my name and active licensure. The patient's identity and physical location were verified at the time of this visit. Either the patient or their legal sales representative raw fibers has been informed of the risks and benefits of -- and alternatives to -- treatment through a remote evaluation and consents to proceed with the evaluation remotely. ALLERGIES Allergen Reactions Keflex [Cephalexin] Other: See Comments Yeast infection Morphine Rash, Itching Zofran [Ondansetron* Other: See Comments Syncope, incontinence Adhesive Tape (Lidia* Rash Indomethacin Rash Percocet [Oxycodone* Rash, Intolerance, Itching Adhesive Rash Current Outpatient Medications Medication Sig insulin glargine (LANTUS SOLOSTAR U-100 INSULIN) 100 unit/mL (3 mL) Inject 43 Units subcutaneously every 24 hours. Insulin [place], Disposable, (PEN NEEDLE) 32 gauge x 5/32 Inject 4 Each subcutaneously every 24 hours. Give with each insulin administration. insulin lispro (HUMALOG KWIKPEN) 100 unit/mL Please inject three times a day with meals- 1 unit for every 10 grams of carbs AND sliding scale 1 ADMINISTER SUPPLEMENTAL INSULIN REGARDLESS OF MEAL OR NUTRITION INTAKE: If Blood Glucose (mg/dL) is <110 Give 0 units 111-150 Give 0 units 151-200 Give 1 unit 201-250 Give 2 units 251-300 Give 3 units 301-350 Give 4 units 351-400 Give 5 units >400 give 5 units and notify provider. MAX TDD 40 units Lancets (MICROLET LANCET) Use as instructed to test blood sugar 4 times daily. E10.65 insulin lispro (HUMALOG U-100 INSULIN) 100 unit/mL injection Use in the Insulin Pump for TDD of 100 units. Needle, Disp, 23 G 23 gauge x 1 ndle Use to inject Solucortef intramuscularly promethazine (PHENERGAN) 25 mg tablet Take 1 tablet by mouth every 6 hours as needed. blood sugar diagnostic (CONTOUR NEXT TEST STRIPS) test strip Use as instructed to check blood glucose 5 times daily. E10.65 lubiprostone (AMITIZA) 8 mcg capsule Take 1 capsule by mouth twice daily with meals. prochlorperazine (COMPAZINE) 10 mg tablet Take 1 tablet by mouth every 6 hours as needed. glucose 4 gram chewable tablet Take 4 tablets by mouth as needed. Acetone, Urine, Test (KETONE URINE TEST) Use as directed SKYRIZI 150 mg/mL injection INJECT 150 MG UNDER THE SKIN EVERY 12 WEEKS No current facility-administered medications for this visit. Immunization History Administered Date(s) Administered hepatitis A (HepA) vaccine, 2-dose series, ped/adol (HAVRIX-PEDS, VAQTA-PEDS) 05/09/2012 human papillomavirus (HPV4) vaccine, quadrivalent (GARDASIL) 06/12/2012 08/11/2012 influenza (IIV3) vaccine, age 6 mo - 64 yr, trivalent (AFLURIA, FLULAVAL, FLUVIRIN, FLUZONE) 05/23/2014 influenza (IIV3) vaccine, trivalent (AFLURIA, FLULAVAL, FLUVIRIN, FLUZONE) 06/14/2016 influenza (IIV3) vaccine, trivalent, PF (AFLURIA, FLUARIX,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 Telephone encounter Note Attempted to contact patient to offer/schedule for ILK injection to the stubborn spot on her scalp. Advised to return call if she would like to schedule. [facility] 01-23-2024 Telephone encounter Note Spoke to patient today to set up delivery of Skyrizi. She states that she has a stubborn spot on her scalp that is not going away. Everything else is going well but the topicals are not helping either. [facility] 12-15-2023 Note HNO ID: [id number] Author: GOKYARA HEAD RN Service: ? Author Type: Registered Nurse Type: Progress Notes Filed: 12/15/2023 14:20 Note Text: Summary: PCC discharge PRIMARY CARE COORDINATION DISCHARGE Patient has been identified by name and date of : Yes Patient discharged from Primary Care Coordination: YES Active Goals - Current status as of 12/15/2023 at 2:17 PM None Completed Goals as of 12/15/2023 at 2:17 PM Most Recent COMPLETED: Blood Pressure < 130/80 139/87 (12/13/2023) COMPLETED: Confirm medication adherence of all prescribed medications and uses them correctly On track (10/12/2023) COMPLETED: Hemoglobin A1C < 7 6.2 (12/30/2021) COMPLETED: LDL at or below 100 mg/dL or on a high statin Goals met Demonstrates engagement through active participation in self-care Patient has reliable caregiver, family and/or social support Health outcomes are maximized, evidence by patient-centered clinical outcomes Goals not met NA Patient knowledgeable and confident in contacting Health Care Providers for questions or concerns: YES Reinforced with patient and/or caregiver that Primary Care Coordination may be reinitiated if a change in status warrants navigation readmission: YES Discussed with: Patient What was the Focus/Challenges addressed in Care Coordination? Education on Chronic Disease Management Disposition: Follow up with PCP Care Team Tab - End: YES Follow up call placed, states is moving at end of month. Is following with Endocrinology, had recent appointment and are working on CGM for her. States has all medications, taking as directed, Declines need for continued follow up, discharged from care coordination. Kyara Luis RN [facility] 12-15-2023 History of Present illness Narrative Summary: PCC discharge PRIMARY CARE COORDINATION DISCHARGE Patient has been identified by name and date of : Yes Patient discharged from Primary Care Coordination: YES Active Goals - Current status as of 12/15/2023 at 2:17 PM None Completed Goals as of 12/15/2023 at 2:17 PM Most Recent COMPLETED: Blood Pressure < 130/80 139/87 (12/13/2023) COMPLETED: Confirm medication adherence of all prescribed medications and uses them correctly On track (10/12/2023) COMPLETED: Hemoglobin A1C < 7 6.2 (12/30/2021) COMPLETED: LDL at or below 100 mg/dL or on a high statin Goals met Demonstrates engagement through active participation in self-care Patient has reliable caregiver, family and/or social support Health outcomes are maximized, evidence by patient-centered clinical outcomes Goals not met NA Patient knowledgeable and confident in contacting Health Care Providers for questions or concerns: YES Reinforced with patient and/or caregiver that Primary Care Coordination may be reinitiated if a change in status warrants navigation readmission: YES Discussed with: Patient What was the Focus/Challenges addressed in Care Coordination? Education on Chronic Disease Management Disposition: Follow up with PCP Care Team Tab - End: YES Follow up call placed, states is moving at end of month. Is following with Endocrinology, had recent appointment and are working on CGM for her. States has all medications, taking as directed, Declines need for continued follow up, discharged from care coordination. Kyara Luis RN documented in this encounter [facility] 12-15-2023 Note Patient Outreach (MR CAC) KATHLEEN VILLA ([id number]) 1995 F CHT Date Time Provider Department 12/15/23 KYARA LUIS [facility] During your visit today, we recorded the following information about you: Kyara Luis, STIVEN 12/15/2023 2:20 PM Signed PRIMARY CARE COORDINATION DISCHARGE Patient has been identified by name and date of : Yes Patient discharged from Primary Care Coordination: YES Active Goals - Current status as of 12/15/2023 at 2:17 PM None Completed Goals as of 12/15/2023 at 2:17 PM Most Recent COMPLETED: Blood Pressure < 130/80 139/87 (12/13/2023) COMPLETED: Confirm medication adherence of all prescribed medications and uses them correctly On track (10/12/2023) COMPLETED: Hemoglobin A1C < 7 6.2 (12/30/2021) COMPLETED: LDL at or below 100 mg/dL or on a high statin Goals met Demonstrates engagement through active participation in self-care Patient has reliable caregiver, family and/or social support Health outcomes are maximized, evidence by patient-centered clinical outcomes Goals not met NA Patient knowledgeable and confident in contacting Health Care Providers for questions or concerns: YES Reinforced with patient and/or caregiver that Primary Care Coordination may be reinitiated if a change in status warrants navigation readmission: YES Discussed with: Patient What was the Focus/Challenges addressed in Care Coordination? Education on Chronic Disease Management Disposition: Follow up with PCP Care Team Tab - End: YES Follow up call placed, states is moving at end of month. Is following with Endocrinology, had recent appointment and are working on CGM for her. States has all medications, taking as directed, Declines need for continued follow up, discharged from care coordination. Kyara Luis RN Allergies As of Date: 12/15/2023 Noted Allergy Reaction KEFLEX (CEPHALEXIN) 11/12/2013 14 - Other: See Comments Comments: Yeast infection MORPHINE 08/30/2013 2 - Rash 9 - Itching ZOFRAN (ONDANSETRON HCL (PF)) 01/14/2015 14 - Other: See Comments Comments: Syncope, incontinence ADHESIVE TAPE (ROSINS) 09/04/2013 2 - Rash INDOMETHACIN 11/20/2003 2 - Rash PERCOCET (OXYCODONE-ACETAMINOPHEN) 014 2 - Rash 5 - Intolerance 9 - Itching ADHESIVE 11/07/2022 2 - Rash Date Reviewed: 12/13/2023 Reviewed by: Jessica Guerrero APRN.TECHNICAL PROGRAMS MANAGER - Fully Assessed Reason for Visit: 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 [[id number]] Prescriptions as of 12/15/2023 - promethazine (PHENERGAN) 25 mg tablet Take 1 tablet by mouth every 6 hours as needed. - insulin lispro (HUMALOG U-100 INSULIN) 100 unit/mL injection Use in the Insulin Pump for TDD of 100 units. - Lancets (MICROLET LANCET) lancets Use as instructed to test blood sugar 4 times daily. E10.65 - blood sugar diagnostic (CONTOUR NEXT TEST STRIPS) test strip Use as instructed to check blood glucose 5 times daily. E10.65 - lubiprostone (AMITIZA) 8 mcg capsule Take 1 capsule by mouth twice daily with meals. - prochlorperazine (COMPAZINE) 10 mg tablet Take 1 tablet by mouth every 6 hours as needed. - glucose 4 gram chewable tablet Take 4 tablets by mouth as needed. - insulin glargine (LANTUS SOLOSTAR, BASAGLAR KWIKPEN) 100 unit/mL (3 mL) Inject 43 Units subcutaneously as directed in the event of Insulin pump failure. - Acetone, Urine, Test (KETONE URINE TEST) Use as directed - SKYRIZI 150 mg/mL injection INJECT 150 MG UNDER THE SKIN EVERY 12 WEEKS Meds Comments as of 01/09/2020: All meds reviewed before sx. Pt has aye also for after sx. CL 01/09/20 IC PNV prenata plus multivitamin Problem List As Of Date 12/15/2023 Noted Resolved Retinal detachment [H33.20] 10/26/2012 12/25/2012 SUMMARY [V999.95] 12/25/2012 Acute chest pain [R07.9] 12/25/2012 Marfan syndrome [Q87.40] 12/25/2012 DM (diabetes mellitus) (HCC) [E11.9] 12/25/2012 Gastroparesis due to DM (HCC) [E11.43, K31.84] 12/25/2012 PTSD (post-traumatic stress disorder) [F43.10] 12/25/2012 DVT prophylaxis [UTF8869] 12/25/2012 09/04/2013 DISPOSITION AND FOLLOW-UP [V999.01] 12/25/2012 09/04/2013 HTN (hypertension) [I10] Hypertension in , antepartum [O16.9] 09/19/2013 01/08/2014 GBS (group B Streptococcus carrier), +RV cultur*11/11/2013 04/16/2014 [Z34.90] 11/22/2013 04/16/2014 Diabetes mellitus in (HCC) [O24.919] 12/25/2013 04/16/2014 Diabetic ketoacidosis without coma associated w*01/08/2014 02/04/2023 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] 01/08/2014 DVT prophylaxis [CRB3809] 02/25/2014 04/16/2014 care and examination [Z39.2] 02/25/2014 04/16/2014 Near syncope [R55] 06/17/2014 Dyspnea [R06.00] 11/04/2014 Pre-op testing [Z01.818] 11/28/2014 Atelectasis [J98.11] 12/10/2014 Fluid overload [E87.70] 12/10/2014 12/15/2014 Tachycardia, unspecified [R00.0] 12/10/2014 12/12/2014 Post-operative pain [G89.18] (more content not included)... [facility] 12-13-2023 Instructions Jessica Guerrero APRN.CNP - 12/13/2023 3:51 PM EDT Plan: 1) Keep glucose tablets or hard candy with you at all times in case of a low blood sugar 2) Please bring meter and/or log book with you to your appointments 3) Insulin pump settings The patient is currently taking Humalog insulin via Medtronic 630G insulin pump in manual mode at the following settings to manage their diabetes: Basal rate: 00:00= 1.8 units/hr >> 1.7 43.2= units per 24 h basal rate Bolus: Insulin:carb ratio 00:00= 10 g/ unit Sensitivity 00:00= 30 mg/dL Blood glucose target 00:00= 100-120 mg/dL Insulin duration= 3 hrs 4) Referral to diabetes education regarding insulin pumps 5) Information for Medtr[employer] rep 6) Follow up in 3 months documented in this encounter [facility] 12-13-2023 History of Present illness Narrative Images from the original note were not included. [facility] DIABETES VISIT ALLERGIES Allergen Reactions Keflex [Cephalexin] Other: See Comments Yeast infection Morphine Rash, Itching Zofran [Ondansetron* Other: See Comments Syncope, incontinence Adhesive Tape (Lidia* Rash Indomethacin Rash Percocet [Oxycodone* Rash, Intolerance, Itching Adhesive Rash Current Outpatient Medications Medication Sig promethazine (PHENERGAN) 25 mg tablet Take 1 tablet by mouth every 6 hours as needed. insulin lispro (HUMALOG U-100 INSULIN) 100 unit/mL injection Use in the Insulin Pump for TDD of 100 units. Lancets (MICROLET LANCET) lancets Use as instructed to test blood sugar 4 times daily. E10.65 blood sugar diagnostic (CONTOUR NEXT TEST STRIPS) test strip Use as instructed to check blood glucose 5 times daily. E10.65 lubiprostone (AMITIZA) 8 mcg capsule Take 1 capsule by mouth twice daily with meals. prochlorperazine (COMPAZINE) 10 mg tablet Take 1 tablet by mouth every 6 hours as needed. glucose 4 gram chewable tablet Take 4 tablets by mouth as needed. insulin glargine (LANTUS SOLOSTAR, BASAGLAR KWIKPEN) 100 unit/mL (3 mL) Inject 43 Units subcutaneously as directed in the event of Insulin pump failure. Acetone, Urine, Test (KETONE URINE TEST) Use as directed SKYRIZI 150 mg/mL injection INJECT 150 MG UNDER THE SKIN EVERY 12 WEEKS No current facility-administered medications for this visit. Immunization History Administered Date(s) Administered hepatitis A (HepA) vaccine, 2-dose series, ped/adol (HAVRIX-PEDS, VAQTA-PEDS) 05/09/2012 human papillomavirus (HPV4) vaccine, quadrivalent (GARDASIL) 06/12/2012 08/11/2012 influenza (IIV3) vaccine, age 3+ yr, trivalent (AFLURIA, FLULAVAL, FLUVIRIN, FLUZONE) 05/23/2014 influenza (IIV3) vaccine, trivalent (AFLURIA, FLULAVAL, FLUVIRIN, FLUZONE) 06/14/2016 influenza (IIV3) vaccine, trivalent, PF (AFLURIA, FLUARIX, FLULAVAL, FLUVIRIN, FLUZONE) 06/05/2015 influenza (IIV4) vaccine, age 6 mo - 64 yr, quadrivalent, PF (AFLURIA, FLUARIX, FLULAVAL, FLUZONE) 11/05/2019 influenza (LAIV) vaccine, nasal, unspecified formulation 05/30/2016 meningococcal (MenACWY-D) vaccine, quadrivalent (MENACTRA) 11/03/2009 pneumococcal polysaccharide (PPV23) vaccine, 23 valent (PNEUMOVAX 23) 01/01/2013 tetanus diphtheria pertussis (Tdap) vaccine, age 7+ yr (ADACEL, BOOSTRIX) 11/03/2009 04/16/2014 Social History Tobacco Use Smoking status: Former Packs/day: 0.30 Years: 8.00 Additional pack years: 0.00 Total pack years: 2.40 Types: Cigarettes Quit date: 06/2019 Years since quittin.4 Smokeless tobacco: Never Vaping Use Vaping Use: Never used Substance Use Topics Alcohol use: Yes Comment: very rarely Drug use: Yes Types: Marijuana Comment: medical card previous, daily 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 VAMSI 11/2014 SECTION HX 02/25/2014 amairani 37 weeks PAST SURGICAL HISTORY OF Right 01/08/2020 REMOVE IMPLANTED MATERIAL POSTERIOR SEGMENT OF EYE, EXTRAOCULAR PICC LINE INSERT/CONSULT 01/09/2014 PORT Left VITRECTOMY MECHANICAL PARS PLANA 10/29/2012 PPV (Pars Plana Vitrectomy) OD VITRECTOMY MECHANICAL PARS PLANA 05/14/2014 PPV (Pars Plana Vitrectomy)/PCIOL OS XTRNL PT ACTIV ECG TRANSMIS W/R&I </30 DAYS 09/05/2014 left chest wall FAMILY HISTORY Problem Relation Age of Onset Cancer Mother 18 cervical Thyroid Mother Multiple Sclerosis Father other (mitral valve) Father Thyroid Sister Diabetes Maternal Grandmother type 2 diabetes Cataract Other maternal great grandma Glaucoma Other maternal great grandma I reviewed the Metallurgical Technician's notes with this visit for vital signs, current allergies, medications, electronic medical record, lab(s), outside lab(s), and or back office lab(s) results, history of vaccinations, and chief complaints. I edited the information obtained, as required. HISTORY OF PRESENT ILLNESS Last endo office visit: 08/[address] Joshua Wang Brynn Villa is a 28 year old female who comes for follow-up of Type 1 DM which is uncontrolled. Patient has had diabetes since age 14 YO. Also known history of gastroparesis, retinopathy, HTN, Marfan's syndrome with dilated aortic root, anxiety/depression Family history of DM: yes, maternal grandmother DM2 She is living at a retirement currently, will be moving at the end of the month She has been noticing frequent lows over the past week or so Would like to resume CGM for her pump, I am not sure what the holdback is as PA was submitted by Dr. Lewis Mild DKA in September- admitted for 3 days, BG >400 Patient's last HgA1C was Hemoglobin A1C (%) Date Value 12/30/2021 6.2 Hemoglobin A1C (POCT) (%) Date Value 12/13/2023 7.1 Diet: Meals vary Appetite has been up and down Eating 1-3 meals per day She is entering extra carbs to her pump that she is not eating Current Medications to manage DM: Lantus- backup insulin Baqsimi- nasal glucagon The patient is currently taking Humalog insulin via Medtronic 630G insulin pump in manual mode at the following settings to manage their diabetes: Basal rate: 00:00= 1.8 units/hr 43.2= units per 24 h basal rate Bolus: Insulin:carb ratio 00:00= 10 g/ unit Sensitivity 00:00= 30 mg/dL Blood glucose target 00:00= 100-120 mg/dL Insulin duration= 3 hrs MONITORING: Insulin pump download reveals the following over the last 14 days: 1. Patient tests an average of 1.6 times per day 2. Patient boluses an average of 3.6 times per day 3. Average total daily dose is 74.1 units 4. Average % basal: bolus Ratio is 58:42 5. Average fingerstick blood glucose is 134 + 114 mg/dl 6. Average sensor blood glucose is n/a 7. Average daily carbs entered is 303 + 138 g 8. Patient changes pump site every 3.7 days. Download of insulin pump of past 14 days: Hypoglycemia: yes Hypoglycemia awareness: yes OTHER ISSUES: Ophthalmology 06/2020 Retinopathy: yes Podiatry: Neuropathy: none Exercise: walking LABS TSH (UIU/ML) Date Value 06/03/2021 6.118 02/04/2021 3.712 08/14/2019 4.480 ALT (U/L) Date Value 07/12/2023 74 04/05/2023 87 02/03/2023 19 01/29/2022 28 12/27/2021 13 12/25/2021 13 Potassium Date Value 07/12/2023 4.0 mmol/L 04/05/2023 4.0 mmol/L 02/01/2022 3.7 MMOL/L 01/31/2022 3.7 MMOL/L Creatinine Date Value 07/12/2023 0.63 mg/dL 04/05/2023 0.69 mg/dL 02/04/2023 0.58 mg/dL 02/01/2022 0.64 MG/DL 01/31/2022 0.61 MG/DL 01/30/2022 0.68 MG/DL Hemoglobin A1C (%) Date Value 12/30/2021 6.2 02/04/2021 6.1 10/06/2020 6.7 Hemoglobin A1C (POCT) (%) Date Value 09/12/2023 6.4 05/31/2023 7.2 01/25/2023 7.6 Albumin, Urine Random (mg/L) Date Value 03/21/2017 25.6 Microalbumin, Urine Random (UG/ML) Date Value 05/06/2019 LESS THAN 5.0 Creatinine, Ur Random (UCRR) (mg/dL) Date Value 03/21/2017 90.3 Albumin/Creat Ratio (mg/g) Date Value 03/21/2017 28 Glucose Date Value 07/12/2023 313 mg/dL 04/05/2023 79 mg/dL 02/04/2023 271 mg/dL 02/01/2022 104 MG/DL 01/31/2022 167 MG/DL 01/30/2022 87 MG/DL 08/31/2015 287 mg/dL Calcium (MG/DL) Date Value 02/01/2022 8.4 01/31/2022 9.1 Calcium, Total (mg/dL) Date Value 07/12/2023 9.2 04/05/2023 9.6 Vitamin D 25 Hydroxy (NG/ML) Date Value 02/04/2021 25.6 04/30/2019 15.8 Lipids: Cholesterol, Total Date Value 02/04/2021 161 MG/dL 08/14/2019 228 MG/DL 04/30/2019 206 MG/DL HDL Cholesterol (MG/DL) Date Value 02/04/2021 36 08/14/2019 38 04/30/2019 47 LDL Cholesterol (MG/DL) Date Value 02/04/2021 108 08/14/2019 149 04/30/2019 137 Triglyceride (MG/DL) Date Value 02/04/2021 84 08/14/2019 206 04/30/2019 110 REVIEW OF SYSTEMS General: no fever, chills Eyes: no blurred or double vision Cardiac: +chest pain Pulmonary: denies shortness of breath GI: +N/V with gastroparesis : denies dysuria or frequency Neuro: no neuropathy Musc: denies weakness PHYSICAL EXAMINATION: BP 139/87 Pulse 80 Resp 16 Wt 170 lb (77.1kg) LMP 11/26/2022 General: Well appearing, alert, in no acute distress, well nourished. Lung: Unlabored on room air Neurological: alert and oriented x3 IMPRESSION/PLAN Ms. Villa is a 28 year old female who returns to the Department of Endocrinology for diabetes management. (E10.65) Type 1 diabetes mellitus with hyperglycemia, with long-term current use of insulin ([facility]) (primary encounter diagnosis) (Z96.41) Insulin pump status - Worsening control - She is having frequent lows - Will adjust basal rate to help prevent low readings - I will reach out to [facility] regarding why CGM order is delayed as PA was sent by Dr. Lewis - Discussed different insulin pump, she will review with CDE Comment: HgbA1C 7.1 % Labs: 2022 Cr 0.61 GFR 124 Plan: 1) Keep glucose tablets or hard candy with you at all times in case of a low blood sugar 2) Please bring meter and/or log book with you to your appointments 3) Insulin pump settings The patient is currently taking Humalog insulin via Medtronic 630G insulin pump in manual mode at the following settings to manage their diabetes: Basal rate: 00:00= 1.8 units/hr >> 1.7 43.2= units per 24 h basal rate Bolus: Insulin:carb ratio 00:00= 10 g/ unit Sensitivity 00:00= 30 mg/dL Blood glucose target 00:00= 100-120 mg/dL Insulin duration= 3 hrs 4) Referral to diabetes education regarding insulin pumps 5) Information for Med[employer]onic rep 6) Follow up in 3 months -Hypoglycemia guidelines reviewed -Recommended diet: Low carbohydrate, Low Added Fat, and No Added Salt -Recommended exercise: 150 minutes of exercise per week as goal -Monitor blood glucose 4 times per day. The patient was advised to contact the office if the blood sugar readings are consistently high or if having frequent hypoglycemia. -Driving and Diabetes has been reviewed with the patient BP and lipids per PCP Patient to continue to follow up with her Primary Care Provider and with other consultants regarding her other medical problems. Next visit in 3 months. Jessica Guerrero APRN.CNP Endocrinology & Metabolism [place] Some elements in this note were copied from my last note and have been updated as appropriate and reflect medical decision making today. documented in this encounter [facility] 12-13-2023 Note HNO ID: [id number] Author: JESSICA GUERRERO APRN.CNP Service: ? Author Type: Nurse Practitioner Type: Progress Notes Filed: 12/13/2023 16:53 Note Text: [facility] DIABETES VISIT ALLERGIES Allergen Reactions Keflex [Cephalexin] Other: See Comments Yeast infection Morphine Rash, Itching Zofran [Ondansetron* Other: See Comments Syncope, incontinence Adhesive Tape (Lidia* Rash Indomethacin Rash Percocet [Oxycodone* Rash, Intolerance, Itching Adhesive Rash Current Outpatient Medications Medication Sig promethazine (PHENERGAN) 25 mg tablet Take 1 tablet by mouth every 6 hours as needed. insulin lispro (HUMALOG U-100 INSULIN) 100 unit/mL injection Use in the Insulin Pump for TDD of 100 units. Lancets (MICROLET LANCET) lancets Use as instructed to test blood sugar 4 times daily. E10.65 blood sugar diagnostic (CONTOUR NEXT TEST STRIPS) test strip Use as instructed to check blood glucose 5 times daily. E10.65 lubiprostone (AMITIZA) 8 mcg capsule Take 1 capsule by mouth twice daily with meals. prochlorperazine (COMPAZINE) 10 mg tablet Take 1 tablet by mouth every 6 hours as needed. glucose 4 gram chewable tablet Take 4 tablets by mouth as needed. insulin glargine (LANTUS SOLOSTAR, BASAGLAR KWIKPEN) 100 unit/mL (3 mL) Inject 43 Units subcutaneously as directed in the event of Insulin pump failure. Acetone, Urine, Test (KETONE URINE TEST) Use as directed SKYRIZI 150 mg/mL injection INJECT 150 MG UNDER THE SKIN EVERY 12 WEEKS No current facility-administered medications for this visit. Immunization History Administered Date(s) Administered hepatitis A (HepA) vaccine, 2-dose series, ped/adol (HAVRIX-PEDS, VAQTA-PEDS) 05/09/2012 human papillomavirus (HPV4) vaccine, quadrivalent (GARDASIL) 06/12/2012 08/11/2012 influenza (IIV3) vaccine, age 3+ yr, trivalent (AFLURIA, FLULAVAL, FLUVIRIN, FLUZONE) 05/23/2014 influenza (IIV3) vaccine, trivalent (AFLURIA, FLULAVAL, FLUVIRIN, FLUZONE) 06/14/2016 influenza (IIV3) vaccine, trivalent, PF (AFLURIA, FLUARIX, FLULAVAL, FLUVIRIN, FLUZONE) 06/05/2015 influenza (IIV4) vaccine, age 6 mo - 64 yr, quadrivalent, PF (AFLURIA, FLUARIX, FLULAVAL, FLUZONE) 11/05/2019 influenza (LAIV) vaccine, nasal, unspecified formulation 05/30/2016 meningococcal (MenACWY-D) vaccine, quadrivalent (MENACTRA) 11/03/2009 pneumococcal polysaccharide (PPV23) vaccine, 23 valent (PNEUMOVAX 23) 01/01/2013 tetanus diphtheria pertussis (Tdap) vaccine, age 7+ yr (ADACEL, BOOSTRIX) 11/03/2009 04/16/2014 Social History Tobacco Use Smoking status: Former Packs/day: 0.30 Years: 8.00 Additional pack years: 0.00 Total pack years: 2.40 Types: Cigarettes Quit date: 06/2019 Years since quittin.4 Smokeless tobacco: Never Vaping Use Vaping Use: Never used Substance Use Topics Alcohol use: Yes Comment: very rarely Drug use: Yes Types: Marijuana Comment: medical card previous, daily 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 VAMSI 11/2014 SECTION HX 02/25/2014 amairani 37 weeks PAST SURGICAL HISTORY OF Right 01/08/2020 REMOVE IMPLANTED MATERIAL POSTERIOR SEGMENT OF EYE, EXTRAOCULAR PICC LINE INSERT/CONSULT 01/09/2014 PORT Left VITRECTOMY MECHANICAL PARS PLANA 10/29/2012 PPV (Pars Plana Vitrectomy) OD VITRECTOMY MECHANICAL PARS PLANA 05/14/2014 PPV (Pars Plana Vitrectomy)/PCIOL OS XTRNL PT ACTIV ECG TRANSMIS W/LUBA left chest wall FAMILY HISTORY Problem Relation Age of Onset Cancer Mother 18 cervical Thyroid Mother Multiple Sclerosis Father other (mitral valve) Father Thyroid Sister Diabetes Maternal Grandmother type 2 diabetes Cataract Other maternal great grandma Glaucoma Other maternal great grandma I reviewed the Metallurgical Technician's notes with this visit for vital signs, current allergies, medications, electronic medical record, lab(s), outside lab(s), and or back office lab(s) results, history of vaccinations, and chief complaints. I edited the information obtained, as required. HISTORY OF PRESENT ILLNESS Last endo office visit: 08/[address] Joshua Swain Daisy is a 28 year old female who comes for follow-up of Type 1 DM which is uncontrolled. Patient has had diabetes since age 14 YO. Also known history of gastroparesis, retinopathy, HTN, Marfan's syndrome with dilated aortic root, anxiety/depression Family history of DM: yes, maternal grandmother DM2 She is living at a (more content not included)... [facility] 11-22-2023 Note HNO ID: [id number] Author: KYARA LUIS RN Service: ? Author Type: Registered Nurse Type: Progress Notes Filed: 11/22/2023 14:34 Note Text: Summary: TCM follow up TRANSITION CARE MANAGEMENT (TCM) FOLLOW-UP NOTE Provider Action/FYI Patient identified by name and date of : YES Summary: TCM follow up call placed, patient states doing well. Has been accepted for [facility], completed paperwork and turned in today. States will be moving in near future and [employer] to provide household furnishings. Per patient she has stopped smoking marijuana, focusing on improving mental health and is working 12 step program. Blood sugars remains stable, this am 181, has all medications, taking as directed. TCM completed will follow for care coordination. Datastage Developer plan for next outreach: Will follow up Kyara Luis RN November 22, 2023 2:29 PM [facility] 11-22-2023 Note Patient Outreach (MR [facility]) KATHLEEN VILLA ([id number]) 1995 F CHT Date Time Provider Department 11/22/23 KYARA LUIS [facility] During your visit today, we recorded the following information about you: Kyara Luis RN 11/22/2023 2:34 PM Signed TRANSITION CARE MANAGEMENT (TCM) FOLLOW-UP NOTE Provider Action/FYI Patient identified by name and date of : YES Summary: TCM follow up call placed, patient states doing well. Has been accepted for [facility], completed paperwork and turned in today. States will be moving in near future and [employer] to provide household furnishings. Per patient she has stopped smoking marijuana, focusing on improving mental health and is working 12 step program. Blood sugars remains stable, this am 181, has all medications, taking as directed. TCM completed will follow for care coordination. Datastage Developer plan for next outreach: Will follow up Kyara Luis RN November 22, 2023 2:29 PM Allergies As of Date: 11/22/2023 Noted Allergy Reaction KEFLEX (CEPHALEXIN) 11/12/2013 14 - Other: See Comments Comments: Yeast infection MORPHINE 08/30/2013 2 - Rash 9 - Itching ZOFRAN (ONDANSETRON HCL (PF)) 01/14/2015 14 - Other: See Comments Comments: Syncope, incontinence ADHESIVE TAPE (ROSINS) 09/04/2013 2 - Rash INDOMETHACIN 11/20/2003 2 - Rash PERCOCET (OXYCODONE-ACETAMINOPHEN) 014 2 - Rash 5 - Intolerance 9 - Itching ADHESIVE 11/07/2022 2 - Rash Date Reviewed: 09/12/2023 Reviewed by: Lisa Aguilar LPN - Fully Assessed Reason for Visit: Transition Of Care [4074] Prescriptions as of 11/22/2023 - promethazine (PHENERGAN) 25 mg tablet Take 1 tablet by mouth every 6 hours as needed. - insulin lispro (HUMALOG U-100 INSULIN) 100 unit/mL injection Use in the Insulin Pump for TDD of 100 units. - Lancets (MICROLET LANCET) lancets Use as instructed to test blood sugar 4 times daily. E10.65 - blood sugar diagnostic (CONTOUR NEXT TEST STRIPS) test strip Use as instructed to check blood glucose 5 times daily. E10.65 - lubiprostone (AMITIZA) 8 mcg capsule Take 1 capsule by mouth twice daily with meals. - prochlorperazine (COMPAZINE) 10 mg tablet Take 1 tablet by mouth every 6 hours as needed. - glucose 4 gram chewable tablet Take 4 tablets by mouth as needed. - insulin glargine (LANTUS SOLOSTAR, BASAGLAR VANIKPEN) 100 unit/mL (3 mL) Inject 43 Units subcutaneously as directed in the event of Insulin pump failure. - Acetone, Urine, Test (KETONE URINE TEST) Use as directed - SKYRIZI 150 mg/mL injection INJECT 150 MG UNDER THE SKIN EVERY 12 WEEKS Meds Comments as of 01/09/2020: All meds reviewed before sx. Pt has aye also for after sx. CL 01/09/20 IC PNV prenata plus multivitamin Problem List As Of Date 11/22/2023 Noted Resolved Retinal detachment [H33.20] 10/26/2012 12/25/2012 SUMMARY [V999.95] 12/25/2012 Acute chest pain [R07.9] 12/25/2012 Marfan syndrome [Q87.40] 12/25/2012 DM (diabetes mellitus) ([facility]) [E11.9] 12/25/2012 Gastroparesis due to DM ([facility]) [E11.43, K31.84] 12/25/2012 PTSD (post-traumatic stress disorder) [F43.10] 12/25/2012 DVT prophylaxis [[id number]] 12/25/2012 09/04/2013 DISPOSITION AND FOLLOW-UP [V999.01] 12/25/2012 09/04/2013 HTN (hypertension) [I10] Hypertension in , antepartum [O16.9] 09/19/2013 01/08/2014 GBS (group B Streptococcus carrier), +RV cultur*11/11/2013 04/16/2014 [Z34.90] 11/22/2013 04/16/2014 Diabetes mellitus in ([facility]) [O24.919] 12/25/2013 04/16/2014 Diabetic ketoacidosis without coma associated w*01/08/2014 02/04/2023 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] 01/08/2014 DVT prophylaxis [[id number]] 02/25/2014 04/16/2014 care and examination [Z39.2] 02/25/2014 04/16/2014 Near syncope [R55] 06/17/2014 Dyspnea [R06.00] 11/04/2014 Pre-op testing [Z01.818] 11/28/2014 Atelectasis [J98.11] 12/10/2014 Fluid overload [E87.70] 12/10/2014 12/15/2014 Tachycardia, unspecified [R00.0] 12/10/2014 12/12/2014 Post-operative pain [G89.18] 12/10/2014 Anxiety [F41.9] 12/10/2014 12/13/2014 Pre-existing type 1 diabetes mellitus in pregna*08/05/2015 10/03/2018 Hereditary disease in family possibly affecting*10/07/2015 Diabetes (HCC) [E11.9] 10/30/2015 Abdominal pain complicating , antepart*11/12/2015 [Z34.90] 01/28/2016 03/06/2017 Type 1 diabetes mellitus with stable proliferat*03/17/2017 Chronic idiopathic constipation [K59.04] 11/18/2021 Menstrual irregularity [N92.6] 04/18/2022 Screening for STD (sexually transmitted disease*04/18/2022 Chronic nausea [R11.0] 04/18/2022 Type 1 diabetes mellitus with hyperglycemia, wi*08/16/2022 Insulin pump status [Z96.41] 08/16/2022 Gastroparesis [K31.84] 11/23/2022 Generalized abdominal pain [R10.84] 12/08/2022 Nausea and vomiting [R11.2] 02/01/2023 Abdominal pain, suprapubic [R10.2] 02/07/2023 (more content not included)... [facility] 11-14-2023 History of Present illness Narrative DATE OF SERVICE: 11/14/2023 PATIENT NAME: Kathleen Villa : 1995 AGE: 28 y.o. CLINIC NUMBER: [id number] Visit type: Established patient Chief Complaint Patient presents with Psoriasis (PKN) Subjective HISTORY OF PRESENT ILLNESS: This is a 28 y.o. female who presents for evaluation of psoriasis and a skin lesion; last seen 08/15/2023. F/u psoriasis; Improved since last visit. Currently treating with: - Skyrizi injections every 12 weeks as directed - ketoconazole 2% shampoo as directed - clobetasol 0.05% solution as directed Patient self administers injections at home without complications. Last injection 11/09/2023. Last labs 08/15/2023. Patient states the shampoo was not helping and she does not use the clobetasol. Denies needing refills. Denies flares recently or currently. Denies redness, flaking, scaling. Denies itching, burning, pain. Denies joint pain/ joint stiffness. Denies nail ridges, pitting, thickening, discoloration. C/o-skin lesion located on the right shoulder x one week. Patient states the lesion is a large freckle. Denies itching, bleeding, pain. Denies changes in size, shape, color. Denies previous treatment. Patient believes she had a precancerous spot that was removed around 8 years ago. She does not remember the name of the doctor she saw. Are you or ? No History of pacemaker/ defibrillator? No History of HIV/ Hep C? No Allergies to Lidocaine, Epinephrine, Latex or Adhesive? Yes- adhesives Review of Systems There were no vitals filed for this visit. PHYSICAL EXAM GENERAL APPEARANCE: Alert & oriented x3, pleasant. Well developed, well nourished. PSYCH: appropriate mood and affect DERMATOLOGY: (all measurements are in cm, unless otherwise noted) 1. Psoriasis vulgaris No current flaring [x]Chronic []Acute [x]Stable []Flaring/Exacerbation Educated and reassured. Treatment options, risks, benefits, and expectations reviewed. Continue: - Skyrizi injections every 12 weeks as directed - ketoconazole 2% shampoo as directed - clobetasol 0.05% solution as directed Patient advised psoriasis is a chronic, multisystem inflammatory disease which most commonly affects the skin. Psoriasis can also affect the nails, joints and skin folds. Depending on the severity and location of the psoriasis, treatment includes topical steroids, topical vitamin D analogs, UV treatment, topical retinoids and systemic treatment. Systemic medications called biologics are injection medications that can be used to treat psoriasis. Biologics are selected on an individual basis with consideration of the patient's medical history and family history. Related Medications Skyrizi 150 MG/ML solution prefilled syringe INJECT 150 MG UNDER THE SKIN EVERY 12 WEEKS ketoconazole (NIZOral) 2 % shampoo Use to wash the scalp 3 to 4 times weekly allowing to sit 3 minutes before rinsing. May use regular shampoo and condition after. 2. Multiple benign nevi (2) Generalized, Right Shoulder - Anterior Scattered uniform brown macules/ papules with globular appearance on dermoscopy No treatment is needed for the benign appearing and asymptomatic lesions described above. The ABCDE (Asymmetry, Border, Color, Diameter, Evolution/Change) criteria used to evaluate pigmented lesions were reviewed with the patient. Patient educated on the proper use of sunscreen, SPF, and how often to reapply. 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 Patient advised to perform self-skin checks and call for follow up appointment if any new or concerning lesions detected. Follow up in about 1 year (around 11/13/2024) for Psoriasis f/u. Leesa Huddleston PA-C 11/14/23 5:13 PM REFERRING MD: documented in this encounter [facility] 11-10-2023 Note HNO ID: [id number] Author: KYARA LUIS RN Service: ? Author Type: Registered Nurse Type: Progress Notes Filed: 11/10/2023 13:21 Note Text: Summary: TCM follow up TRANSITION CARE MANAGEMENT (TCM) FOLLOW-UP NOTE Provider Action/FYI Summary: TCM follow up placed, states blood sugars have remained stable. Had intake on Monday for IOP and has first appointment in November. States has all medications, taking as directed. Did received email with physicians in her area, has yet to schedule but plans to call. Datastage Developer plan for next outreach: Will follow up Priscilla Luis RN November 10, 2023 [facility] 11-10-2023 Note Patient Outreach (MR [facility]) KATHLEEN VILLA ([id number]) 1995 F CHT Date Time Provider Department 11/10/23 KYARA LUIS [facility] During your visit today, we recorded the following information about you: Kyara Luis RN 11/10/2023 1:21 PM Signed TRANSITION CARE MANAGEMENT (TCM) FOLLOW-UP NOTE Provider Action/FYI Summary: TCM follow up placed, states blood sugars have remained stable. Had intake on Monday for IOP and has first appointment in November. States has all medications, taking as directed. Did received email with physicians in her area, has yet to schedule but plans to call. Datastage Developer plan for next outreach: Will follow up Signature Kyara Luis RN November 10, 2023 Allergies As of Date: 11/10/2023 Noted Allergy Reaction KEFLEX (CEPHALEXIN) 11/12/2013 14 - Other: See Comments Comments: Yeast infection MORPHINE 08/30/2013 2 - Rash 9 - Itching ZOFRAN (ONDANSETRON HCL (PF)) 01/14/2015 14 - Other: See Comments Comments: Syncope, incontinence ADHESIVE TAPE (ROSINS) 09/04/2013 2 - Rash INDOMETHACIN 11/20/2003 2 - Rash PERCOCET (OXYCODONE-ACETAMINOPHEN) 014 2 - Rash 5 - Intolerance 9 - Itching ADHESIVE 11/07/2022 2 - Rash Date Reviewed: 09/12/2023 Reviewed by: Lisa Aguilar LPN - Fully Assessed Reason for Visit: Transition Of Care [4074] Prescriptions as of 11/10/2023 - promethazine (PHENERGAN) 25 mg tablet Take 1 tablet by mouth every 6 hours as needed. - insulin lispro (HUMALOG U-100 INSULIN) 100 unit/mL injection Use in the Insulin Pump for TDD of 100 units. - Lancets (MICROLET LANCET) lancets Use as instructed to test blood sugar 4 times daily. E10.65 - blood sugar diagnostic (CONTOUR NEXT TEST STRIPS) test strip Use as instructed to check blood glucose 5 times daily. E10.65 - lubiprostone (AMITIZA) 8 mcg capsule Take 1 capsule by mouth twice daily with meals. - prochlorperazine (COMPAZINE) 10 mg tablet Take 1 tablet by mouth every 6 hours as needed. - glucose 4 gram chewable tablet Take 4 tablets by mouth as needed. - insulin glargine (LANTUS SOLOSTAR, BASAGLAR KWIKPEN) 100 unit/mL (3 mL) Inject 43 Units subcutaneously as directed in the event of Insulin pump failure. - Acetone, Urine, Test (KETONE URINE TEST) Use as directed - SKYRIZI 150 mg/mL injection INJECT 150 MG UNDER THE SKIN EVERY 12 WEEKS Meds Comments as of 01/09/2020: All meds reviewed before sx. Pt has aye also for after sx. CL 01/09/20 IC PNV prenata plus multivitamin Problem List As Of Date 11/10/2023 Noted Resolved Retinal detachment [H33.20] 10/26/2012 12/25/2012 SUMMARY [V999.95] 12/25/2012 Acute chest pain [R07.9] 12/25/2012 Marfan syndrome [Q87.40] 12/25/2012 DM (diabetes mellitus) (HCC) [E11.9] 12/25/2012 Gastroparesis due to DM (HCC) [E11.43, K31.84] 12/25/2012 PTSD (post-traumatic stress disorder) [F43.10] 12/25/2012 DVT prophylaxis [[id number]] 12/25/2012 09/04/2013 DISPOSITION AND FOLLOW-UP [V999.01] 12/25/2012 09/04/2013 HTN (hypertension) [I10] Hypertension in , antepartum [O16.9] 09/19/2013 01/08/2014 GBS (group B Streptococcus carrier), +RV cultur*11/11/2013 04/16/2014 [Z34.90] 11/22/2013 04/16/2014 Diabetes mellitus in (HCC) [O24.919] 12/25/2013 04/16/2014 Diabetic ketoacidosis without coma associated w*01/08/2014 02/04/2023 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] 01/08/2014 DVT prophylaxis [[id number]] 02/25/2014 04/16/2014 care and examination [Z39.2] 02/25/2014 04/16/2014 Near syncope [R55] 06/17/2014 Dyspnea [R06.00] 11/04/2014 Pre-op testing [Z01.818] 11/28/2014 Atelectasis [J98.11] 12/10/2014 Fluid overload [E87.70] 12/10/2014 12/15/2014 Tachycardia, unspecified [R00.0] 12/10/2014 12/12/2014 Post-operative pain [G89.18] 12/10/2014 Anxiety [F41.9] 12/10/2014 12/13/2014 Pre-existing type 1 diabetes mellitus in pregna*08/05/2015 10/03/2018 Hereditary disease in family possibly affecting*10/07/2015 Diabetes (HCC) [E11.9] 10/30/2015 Abdominal pain complicating , antepart*11/12/2015 [Z34.90] 01/28/2016 03/06/2017 Type 1 diabetes mellitus with stable proliferat*03/17/2017 Chronic idiopathic constipation [K59.04] 11/18/2021 Menstrual irregularity [N92.6] 04/18/2022 Screening for STD (sexually transmitted disease*04/18/2022 Chronic nausea [R11.0] 04/18/2022 Type 1 diabetes mellitus with hyperglycemia, wi*08/16/2022 Insulin pump status [Z96.41] 08/16/2022 Gastroparesis [K31.84] 11/23/2022 Generalized abdominal pain [R10.84] 12/08/2022 Nausea and vomiting [R11.2] 02/01/2023 Abdominal pain, suprapubic [R10.2] 02/07/2023 Encounter Status:Closed by KYARA LUIS on 11/10/23 [facility] 11-10-2023 History of Present illness Narrative Summary: TCM follow up TRANSITION CARE MANAGEMENT (TCM) FOLLOW-UP NOTE Provider Action/FYI Summary: TCM follow up placed, states blood sugars have remained stable. Had intake on Monday for IOP and has first appointment in November. States has all medications, taking as directed. Did received email with physicians in her area, has yet to schedule but plans to call. Datastage Developer plan for next outreach: Will follow up Signature Kyara Luis RN November 10, 2023 documented in this encounter [facility] 11-03-2023 Note HNO ID: [id number] Author: KYARA LUIS RN Service: ? Author Type: Registered Nurse Type: Progress Notes Filed: 11/03/2023 12:45 Note Text: Summary: TCM follow up TRANSITION CARE MANAGEMENT (TCM) FOLLOW-UP NOTE Provider Action/FYI Patient identified by name and date of : YES Summary: TCM follow up call placed, patient requesting call back at later date, currently resting Datastage Developer plan for next outreach: Will follow up Priscilla Luis RN November 03, 2023 [facility] 11-03-2023 Note Patient Outreach (MR [facility]) KATHLEEN VILLA ([id number]) 1995 F CHT Date Time Provider Department 11/03/23 KYARA LUIS [facility] During your visit today, we recorded the following information about you: Kyara Luis, RN 11/03/2023 12:45 PM Signed TRANSITION CARE MANAGEMENT (TCM) FOLLOW-UP NOTE Provider Action/FYI Patient identified by name and date of : YES Summary: TCM follow up call placed, patient requesting call back at later date, currently resting Datastage Developer plan for next outreach: Will follow up Signature Kyara Luis RN November 03, 2023 Allergies As of Date: 11/03/2023 Noted Allergy Reaction KEFLEX (CEPHALEXIN) 11/12/2013 14 - Other: See Comments Comments: Yeast infection MORPHINE 08/30/2013 2 - Rash 9 - Itching ZOFRAN (ONDANSETRON HCL (PF)) 01/14/2015 14 - Other: See Comments Comments: Syncope, incontinence ADHESIVE TAPE (ROSINS) 09/04/2013 2 - Rash INDOMETHACIN 11/20/2003 2 - Rash PERCOCET (OXYCODONE-ACETAMINOPHEN) 014 2 - Rash 5 - Intolerance 9 - Itching ADHESIVE 11/07/2022 2 - Rash Date Reviewed: 09/12/2023 Reviewed by: Lisa Aguilar LPN - Fully Assessed Reason for Visit: Transition Of Care [4074] Prescriptions as of 11/03/2023 - promethazine (PHENERGAN) 25 mg tablet Take 1 tablet by mouth every 6 hours as needed. - insulin lispro (HUMALOG U-100 INSULIN) 100 unit/mL injection Use in the Insulin Pump for TDD of 100 units. - Lancets (MICROLET LANCET) lancets Use as instructed to test blood sugar 4 times daily. E10.65 - blood sugar diagnostic (CONTOUR NEXT TEST STRIPS) test strip Use as instructed to check blood glucose 5 times daily. E10.65 - lubiprostone (AMITIZA) 8 mcg capsule Take 1 capsule by mouth twice daily with meals. - prochlorperazine (COMPAZINE) 10 mg tablet Take 1 tablet by mouth every 6 hours as needed. - glucose 4 gram chewable tablet Take 4 tablets by mouth as needed. - insulin glargine (LANTUS SOLOSTAR, BASAGLAR KWIKPEN) 100 unit/mL (3 mL) Inject 43 Units subcutaneously as directed in the event of Insulin pump failure. - Acetone, Urine, Test (KETONE URINE TEST) Use as directed - SKYRIZI 150 mg/mL injection INJECT 150 MG UNDER THE SKIN EVERY 12 WEEKS Meds Comments as of 01/09/2020: All meds reviewed before sx. Pt has aye also for after sx. CL 01/09/20 IC PNV prenata plus multivitamin Problem List As Of Date 11/03/2023 Noted Resolved Retinal detachment [H33.20] 10/26/2012 12/25/2012 SUMMARY [V999.95] 12/25/2012 Acute chest pain [R07.9] 12/25/2012 Marfan syndrome [Q87.40] 12/25/2012 DM (diabetes mellitus) (HCC) [E11.9] 12/25/2012 Gastroparesis due to DM (HCC) [E11.43, K31.84] 12/25/2012 PTSD (post-traumatic stress disorder) [F43.10] 12/25/2012 DVT prophylaxis [[id number]] 12/25/2012 09/04/2013 DISPOSITION AND FOLLOW-UP [V999.01] 12/25/2012 09/04/2013 HTN (hypertension) [I10] Hypertension in , antepartum [O16.9] 09/19/2013 01/08/2014 GBS (group B Streptococcus carrier), +RV cultur*11/11/2013 04/16/2014 [Z34.90] 11/22/2013 04/16/2014 Diabetes mellitus in (HCC) [O24.919] 12/25/2013 04/16/2014 Diabetic ketoacidosis without coma associated w*01/08/2014 02/04/2023 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] 01/08/2014 DVT prophylaxis [[id number]] 02/25/2014 04/16/2014 care and examination [Z39.2] 02/25/2014 04/16/2014 Near syncope [R55] 06/17/2014 Dyspnea [R06.00] 11/04/2014 Pre-op testing [Z01.818] 11/28/2014 Atelectasis [J98.11] 12/10/2014 Fluid overload [E87.70] 12/10/2014 12/15/2014 Tachycardia, unspecified [R00.0] 12/10/2014 12/12/2014 Post-operative pain [G89.18] 12/10/2014 Anxiety [F41.9] 12/10/2014 12/13/2014 Pre-existing type 1 diabetes mellitus in pregna*08/05/2015 10/03/2018 Hereditary disease in family possibly affecting*10/07/2015 Diabetes (HCC) [E11.9] 10/30/2015 Abdominal pain complicating , antepart*11/12/2015 [Z34.90] 01/28/2016 03/06/2017 Type 1 diabetes mellitus with stable proliferat*03/17/2017 Chronic idiopathic constipation [K59.04] 11/18/2021 Menstrual irregularity [N92.6] 04/18/2022 Screening for STD (sexually transmitted disease*04/18/2022 Chronic nausea [R11.0] 04/18/2022 Type 1 diabetes mellitus with hyperglycemia, wi*08/16/2022 Insulin pump status [Z96.41] 08/16/2022 Gastroparesis [K31.84] 11/23/2022 Generalized abdominal pain [R10.84] 12/08/2022 Nausea and vomiting [R11.2] 02/01/2023 Abdominal pain, suprapubic [R10.2] 02/07/2023 Encounter Status:Closed by KYARA LUIS on 11/03/23 [facility] 11-03-2023 History of Present illness Narrative Summary: TCM follow up TRANSITION CARE MANAGEMENT (TCM) FOLLOW-UP NOTE Provider Action/FYI Patient identified by name and date of : YES Summary: TCM follow up call placed, patient requesting call back at later date, currently resting Datastage Developer plan for next outreach: Will follow up Signature Kyara Luis RN November 03, 2023 documented in this encounter [facility] 10-27-2023 Note HNO ID: [id number] Author: KYARA LUIS, STIVEN Service: ? Author Type: Registered Nurse Type: Progress Notes Filed: 10/27/2023 14:48 Note Text: Summary: TCM follow up TRANSITION CARE MANAGEMENT (TCM) FOLLOW-UP NOTE Provider Action/FYI Patient identified by name and date of : YES Discharge Network Status: [id number] (OON) Discharge Summary: TCM follow up call placed to patient, states was at ED on 10/25 due to anxiety, started on ativan which is helping. Per patient has thoughts of self harm/cutting, this has subsided, no suicidal ideation. Has been in contact with local center for intensive outpatient program and has evaluation on 11/05. Has been in contact with her counselor. Has number to crisis and encouraged to return to ED if new/worsening symptoms. Monitoring blood sugars, states have been stable. Per patient may have to change to PCP in [place], has difficulty obtaining ride to [employer]. Patient asked if name and number of locals physicians can be sent to her, sent via email. States has all medications, taking as directed. Datastage Developer plan for next outreach: Will follow up Signature Kyara Luis RN October 27, 2023 [facility] 10-27-2023 History of Present illness Narrative Summary: TCM follow up TRANSITION CARE MANAGEMENT (TCM) FOLLOW-UP NOTE Provider Action/FYI Patient identified by name and date of : YES Discharge Network Status: [id number] (OON) Discharge Summary: TCM follow up call placed to patient, was at ED on 10/25 due to anxiety, started on ativan which is helping. Per patient has thoughts of self harm/cutting, this has subsided, no suicidal ideation. Has been in contact with local [place] for intensive outpatient program and has evaluation on 11/05. Has been in contact with her counselor. Has number to crisis and encouraged to return to ED if new/worsening symptoms. Monitoring blood sugars, states have been stable. Per patient may have to change to PCP in [place], has difficulty obtaining ride to [place]. Patient asked if name and number of locals physicians can be sent to her, sent via email. States has all medications, taking as directed. Datastage Developer plan for next outreach: Will follow up Signature Kyara Luis RN October 27, 2023 documented in this encounter [facility] 10-27-2023 Note Patient Outreach (MR [facility]) KATHLEEN VILLA ([id number]) 1995 F T Date Time Provider Department 10/27/23 KYARA LUIS [facility] During your visit today, we recorded the following information about you: Kyara Luis RN 10/27/2023 2:48 PM Signed TRANSITION CARE MANAGEMENT (TCM) FOLLOW-UP NOTE Provider Action/FYI Patient identified by name and date of : YES Discharge Network Status: [id number] (OON) Discharge Summary: TCM follow up call placed to patient, was at ED on 10/25 due to anxiety, started on ativan which is helping. Per patient has thoughts of self harm/cutting, this has subsided, no suicidal ideation. Has been in contact with local center for intensive outpatient program and has evaluation on 11/05. Has been in contact with her counselor. Has number to crisis and encouraged to return to ED if new/worsening symptoms. Monitoring blood sugars, states have been stable. Per patient may have to change to PCP in [place], has difficulty obtaining ride to [place]. Patient asked if name and number of locals physicians can be sent to her, sent via email. States has all medications, taking as directed. Datastage Developer plan for next outreach: Will follow up Signature Kyara Luis RN October 27, 2023 Allergies As of Date: 10/27/2023 Noted Allergy Reaction KEFLEX (CEPHALEXIN) 11/12/2013 14 - Other: See Comments Comments: Yeast infection MORPHINE 08/30/2013 2 - Rash 9 - Itching ZOFRAN (ONDANSETRON HCL (PF)) 01/14/2015 14 - Other: See Comments Comments: Syncope, incontinence ADHESIVE TAPE (ROSINS) 09/04/2013 2 - Rash INDOMETHACIN 11/20/2003 2 - Rash PERCOCET (OXYCODONE-ACETAMINOPHEN) 014 2 - Rash 5 - Intolerance 9 - Itching ADHESIVE 11/07/2022 2 - Rash Date Reviewed: 09/12/2023 Reviewed by: Lisa Aguilar LPN - Fully Assessed Reason for Visit: Transition Of Care [4074] Prescriptions as of 10/27/2023 - promethazine (PHENERGAN) 25 mg tablet Take 1 tablet by mouth every 6 hours as needed. - insulin lispro (HUMALOG U-100 INSULIN) 100 unit/mL injection Use in the Insulin Pump for TDD of 100 units. - Lancets (MICROLET LANCET) lancets Use as instructed to test blood sugar 4 times daily. E10.65 - blood sugar diagnostic (CONTOUR NEXT TEST STRIPS) test strip Use as instructed to check blood glucose 5 times daily. E10.65 - lubiprostone (AMITIZA) 8 mcg capsule Take 1 capsule by mouth twice daily with meals. - prochlorperazine (COMPAZINE) 10 mg tablet Take 1 tablet by mouth every 6 hours as needed. - glucose 4 gram chewable tablet Take 4 tablets by mouth as needed. - insulin glargine (LANTUS SOLOSTAR, BASAGLAR KWIKPEN) 100 unit/mL (3 mL) Inject 43 Units subcutaneously as directed in the event of Insulin pump failure. - Acetone, Urine, Test (KETONE URINE TEST) Use as directed - SKYRIZI 150 mg/mL injection INJECT 150 MG UNDER THE SKIN EVERY 12 WEEKS Meds Comments as of 01/09/2020: All meds reviewed before sx. Pt has aye also for after sx. CL 01/09/20 IC PNV prenata plus multivitamin Problem List As Of Date 10/27/2023 Noted Resolved Retinal detachment [H33.20] 10/26/2012 12/25/2012 SUMMARY [V999.95] 12/25/2012 Acute chest pain [R07.9] 12/25/2012 Marfan syndrome [Q87.40] 12/25/2012 DM (diabetes mellitus) (HCC) [E11.9] 12/25/2012 Gastroparesis due to DM (HCC) [E11.43, K31.84] 12/25/2012 PTSD (post-traumatic stress disorder) [F43.10] 12/25/2012 DVT prophylaxis [[id number]] 12/25/2012 09/04/2013 DISPOSITION AND FOLLOW-UP [V999.01] 12/25/2012 09/04/2013 HTN (hypertension) [I10] Hypertension in , antepartum [O16.9] 09/19/2013 01/08/2014 GBS (group B Streptococcus carrier), +RV cultur*11/11/2013 04/16/2014 [Z34.90] 11/22/2013 04/16/2014 Diabetes mellitus in (HCC) [O24.919] 12/25/2013 04/16/2014 Diabetic ketoacidosis without coma associated w*01/08/2014 02/04/2023 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] 01/08/2014 DVT prophylaxis [[id number]] 02/25/2014 04/16/2014 care and examination [Z39.2] 02/25/2014 04/16/2014 Near syncope [R55] 06/17/2014 Dyspnea [R06.00] 11/04/2014 Pre-op testing [Z01.818] 11/28/2014 Atelectasis [J98.11] 12/10/2014 Fluid overload [E87.70] 12/10/2014 12/15/2014 Tachycardia, unspecified [R00.0] 12/10/2014 12/12/2014 Post-operative pain [G89.18] 12/10/2014 Anxiety [F41.9] 12/10/2014 12/13/2014 Pre-existing type 1 diabetes mellitus in pregna*08/05/2015 10/03/2018 Hereditary disease in family possibly affecting*10/07/2015 Diabetes (HCC) [E11.9] 10/30/2015 Abdominal pain complicating , antepart*11/12/2015 [Z34.90] 01/28/2016 03/06/2017 Type 1 diabetes mellitus with stable proliferat*03/17/2017 Chronic idiopathic constipation [K59.04] 11/18/2021 Menstrual irregularity [N92.6] 04/18/2022 Screening for STD (sexually transmitted disease*04/18/2022 Chronic na (more content not included)... [facility] 10-20-2023 Note HNO ID: [id number] Author: KYARA LUIS RN Service: ? Author Type: Registered Nurse Type: Progress Notes Filed: 10/20/2023 14:23 Note Text: Summary: TCM call TRANSITION CARE MANAGEMENT (TCM) INITIAL CONTACT Provider Action/FYI: Initial contact with patient post discharge, spoke to patient, introduced self. Discharge instructions reviewed. TCM call placed to patient., states blood sugar was high, reading >500 at home, per patient has had increased anxiety, was experiencing nausea/vomiting. States insulin pump was functioning properly, thinks it was related to stress secondary to friend and her daughter having a difficult time at a homeless retirement. Patient does attend weekly counseling at [facility], encouraged her to reach out to her counselor to discuss increased stress/anxiety levels and she plans on calling today. Per patient, no medication changes, blood sugar today is 156, state n/v resolving, Has all medications, taking as directed. . Patient identified by name and .Yes TCM Eligibility Documentation Program: Transitional Care Management Status: Identified Start Date: 10/18/2023 Responsible Staff: Kyara Luis RN Discharge date: 10/18/2023 (Program start) Date of initial contact: 10/20/2023 Initial contact Target status: Successful; Contact made within 2 business days post-discharge SUMMARY: -Pt discharged from [facility] on 10/18/23. -Follow up appointment Endo. -Medication review done Yes. -Admitted for: DKA CONCERNS NEW MEDICATIONS:NA MEDS HELD/DISCONTINUED: NA BRIEF HOSPITAL COURSE: KATHLEEN VILLA, is a 28 F with a PMH as outlined who presents via the ED on 10/17/2023 with a complaint of hyperglycemia. She is a known type 1 diabetic. She has not been feeling well for the past few days. She admitted to nausea and vomiting but denied any fever or chills or any other symptoms. Review of systems is otherwise negative. Had A1c in EMR from July 2023 was 7, and per patient, her last A1C with her steward dishwasher was 6.7. She had however had recurrent DKA. Vitals in the ED were temperature of 98.2 with heart rate of 142 and blood pressure of 149/124. Respirate rate was 18. She was saturating at 96% on room air. CBC showed WBC of 13.6 with hemoglobin of 13.6 and platelets of 158. Chemistry shows sodium of 152 with anion gap of 18 and creatinine of 1.18. Bicarb was 16. Glucose was 534. Serum acetone level was moderate. She was admitted to be managed for DKA and an known type I diabetic. SHe was admitted to the ICU and started on insulin drip. Her DKA resolved and gap closed x 2. She was placed on her insulin pump. She was also placed on a diet which she tolerated. She remained stable and was discharged home on 10/18/2023. 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 Patient seen and examined prior to discharge. She had no active complaints and had an uneventful night. Review of systems is otherwise negative. Labs and vitals reviewed. Home meds reviewed and reconciled. Kyara Luis RN [facility] 10-20-2023 History of Present illness Narrative Summary: TCM call TRANSITION CARE MANAGEMENT (TCM) INITIAL CONTACT Provider Action/FYI: Initial contact with patient post discharge, spoke to patient, introduced self. Discharge instructions reviewed. TCM call placed to patient., states blood sugar was high, reading >500 at home, per patient has had increased anxiety, was experiencing nausea/vomiting. States insulin pump was functioning properly, thinks it was related to stress secondary to friend and her daughter having a difficult time at a homeless retirement. Patient does attend weekly counseling at [facility], encouraged her to reach out to her counselor to discuss increased stress/anxiety levels and she plans on calling today. Per patient, no medication changes, blood sugar today is 156, state n/v resolving, Has all medications, taking as directed. . Patient identified by name and .Yes TCM Eligibility Documentation Program: Transitional Care Management Status: Identified Start Date: 10/18/2023 Responsible Staff: Kyara Luis assembly machine set up mechanic date: 10/18/2023 (Program start) Date of initial contact: 10/20/2023 Initial contact Target status: Successful; Contact made within 2 business days post-discharge SUMMARY: -Pt discharged from [facility] on 10/18/23. -Follow up appointment Endo. -Medication review done Yes. -Admitted for: DKA CONCERNS NEW MEDICATIONS:NA MEDS HELD/DISCONTINUED: NA BRIEF HOSPITAL COURSE: KATHLEEN VILLA, is a 28 F with a PMH as outlined who presents via the ED on 10/17/2023 with a complaint of hyperglycemia. She is a known type 1 diabetic. She has not been feeling well for the past few days. She admitted to nausea and vomiting but denied any fever or chills or any other symptoms. Review of systems is otherwise negative. Had A1c in EMR from July 2023 was 7, and per patient, her last A1C with her steward dishwasher was 6.7. She had however had recurrent DKA. Vitals in the ED were temperature of 98.2 with heart rate of 142 and blood pressure of 149/124. Respirate rate was 18. She was saturating at 96% on room air. CBC showed WBC of 13.6 with hemoglobin of 13.6 and platelets of 158. Chemistry shows sodium of 152 with anion gap of 18 and creatinine of 1.18. Bicarb was 16. Glucose was 534. Serum acetone level was moderate. She was admitted to be managed for DKA and an known type I diabetic. SHe was admitted to the ICU and started on insulin drip. Her DKA resolved and gap closed x 2. She was placed on her insulin pump. She was also placed on a diet which she tolerated. She remained stable and was discharged home on 10/18/2023. 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 Patient seen and examined prior to discharge. She had no active complaints and had an uneventful night. Review of systems is otherwise negative. Labs and vitals reviewed. Home meds reviewed and reconciled. Kyara Luis RN documented in this encounter [facility] 10-20-2023 Note Patient Outreach (MR CAC) KATHLEEN VILLA ([id number]) 1995 F T Date Time Provider Department 10/20/23 KYARA LUIS [facility] During your visit today, we recorded the following information about you: Kyara Luis RN 10/20/2023 2:23 PM Signed TRANSITION CARE MANAGEMENT (TCM) INITIAL CONTACT Provider Action/FYI: Initial contact with patient post discharge, spoke to patient, introduced self. Discharge instructions reviewed. TCM call placed to patient., states blood sugar was high, reading >500 at home, per patient has had increased anxiety, was experiencing nausea/vomiting. States insulin pump was functioning properly, thinks it was related to stress secondary to friend and her daughter having a difficult time at a homeless retirement. Patient does attend weekly counseling at [facility], encouraged her to reach out to her counselor to discuss increased stress/anxiety levels and she plans on calling today. Per patient, no medication changes, blood sugar today is 156, state n/v resolving, Has all medications, taking as directed. . Patient identified by name and .Yes TCM Eligibility Documentation Program: Transitional Care Management Status: Identified Start Date: 10/18/2023 Responsible Staff: Kyara Luis RN Discharge date: 10/18/2023 (Program start) Date of initial contact: 10/20/2023 Initial contact Target status: Successful; Contact made within 2 business days post-discharge SUMMARY: -Pt discharged from [facility] on 10/18/23. -Follow up appointment Endo. -Medication review done Yes. -Admitted for: DKA CONCERNS NEW MEDICATIONS:NA MEDS HELD/DISCONTINUED: NA BRIEF HOSPITAL COURSE: KATHLEEN VILLA, is a 28 F with a PMH as outlined who presents via the ED on 10/17/2023 with a complaint of hyperglycemia. She is a known type 1 diabetic. She has not been feeling well for the past few days. She admitted to nausea and vomiting but denied any fever or chills or any other symptoms. Review of systems is otherwise negative. Had A1c in EMR from July 2023 was 7, and per patient, her last A1C with her steward dishwasher was 6.7. She had however had recurrent DKA. Vitals in the ED were temperature of 98.2 with heart rate of 142 and blood pressure of 149/124. Respirate rate was 18. She was saturating at 96% on room air. CBC showed WBC of 13.6 with hemoglobin of 13.6 and platelets of 158. Chemistry shows sodium of 152 with anion gap of 18 and creatinine of 1.18. Bicarb was 16. Glucose was 534. Serum acetone level was moderate. She was admitted to be managed for DKA and an known type I diabetic. SHe was admitted to the ICU and started on insulin drip. Her DKA resolved and gap closed x 2. She was placed on her insulin pump. She was also placed on a diet which she tolerated. She remained stable and was discharged home on 10/18/2023. 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 Patient seen and examined prior to discharge. She had no active complaints and had an uneventful night. Review of systems is otherwise negative. Labs and vitals reviewed. Home meds reviewed and reconciled. Kyara Luis RN Allergies As of Date: 10/20/2023 Noted Allergy Reaction KEFLEX (CEPHALEXIN) 11/12/2013 14 - Other: See Comments Comments: Yeast infection MORPHINE 08/30/2013 2 - Rash 9 - Itching ZOFRAN (ONDANSETRON HCL (PF)) 01/14/2015 14 - Other: See Comments Comments: Syncope, incontinence ADHESIVE TAPE (ROSINS) 09/04/2013 2 - Rash INDOMETHACIN 11/20/2003 2 - Rash PERCOCET (OXYCODONE-ACETAMINOPHEN) 014 2 - Rash 5 - Intolerance 9 - Itching ADHESIVE 11/07/2022 2 - Rash Date Reviewed: 09/12/2023 Reviewed by: Lisa Aguilar LPN - Fully Assessed Reason for Visit: Transition Of Care [4074] Prescriptions as of 10/20/2023 - promethazine (PHENERGAN) 25 mg tablet Take 1 tablet by mouth every 6 hours as needed. - insulin lispro (HUMALOG U-100 INSULIN) 100 unit/mL injection Use in the Insulin Pump for TDD of 100 units. - Lancets (MICROLET LANCET) lancets Use as instructed to test blood sugar 4 times daily. E10.65 - blood sugar diagnostic (CONTOUR NEXT TEST STRIPS) test strip Use as instructed to check blood glucose 5 times daily. E10.65 - lubiprostone (AMITIZA) 8 mcg capsule Take 1 capsule by mouth twice daily with meals. - prochlorperazine (COMPAZINE) 10 mg tablet Take 1 tablet by mouth every 6 hours as needed. - glucose 4 gram chewable tablet Take 4 tablets by mouth as needed. - insulin glargine (LANTUS SOLOSTAR, BASAGLAR KWIKPEN) 100 unit/mL (3 mL) Inject 43 Units subcutaneously as directed in the event of Insulin pump failure. - Acetone, Urine, Test (KETONE URINE TEST) Use as directed - SKYRIZI 150 mg/mL injection INJECT 150 MG UNDER THE SKIN EVERY 12 WEEKS Meds Comments as of 01/09/2020: All (more content not included)... [facility] 10-19-2023 Note HNO ID: [id number] Author: KYARA LUIS RN Service: ? Author Type: Registered Nurse Type: Progress Notes Filed: 10/19/2023 12:05 Note Text: Summary: TCM call TRANSITION CARE MANAGEMENT (TCM) FOLLOW-UP NOTE Provider Action/FYI Summary: TCM call placed to patient, no answer, message left to return my call at [phone] ext [phone] Datastage Developer plan for next outreach: Will follow up Signature Kyara Luis RN October 19, 2023 [facility] 10-19-2023 Note Patient Outreach (MR CAC) KATHLEEN VILLA ([id number]) 1995 F CHT Date Time Provider Department 10/19/23 KYARA LUIS [facility] During your visit today, we recorded the following information about you: Kyara Luis RN 10/19/2023 12:05 PM Signed TRANSITION CARE MANAGEMENT (TCM) FOLLOW-UP NOTE Provider Action/FYI Summary: TCM call placed to patient, no answer, message left to return my call at [phone] ext [phone] Datastage Developer plan for next outreach: Will follow up Signature Kyara Luis RN October 19, 2023 Allergies As of Date: 10/19/2023 Noted Allergy Reaction KEFLEX (CEPHALEXIN) 11/12/2013 14 - Other: See Comments Comments: Yeast infection MORPHINE 08/30/2013 2 - Rash 9 - Itching ZOFRAN (ONDANSETRON HCL (PF)) 01/14/2015 14 - Other: See Comments Comments: Syncope, incontinence ADHESIVE TAPE (ROSINS) 09/04/2013 2 - Rash INDOMETHACIN 11/20/2003 2 - Rash PERCOCET (OXYCODONE-ACETAMINOPHEN) 014 2 - Rash 5 - Intolerance 9 - Itching ADHESIVE 11/07/2022 2 - Rash Date Reviewed: 09/12/2023 Reviewed by: Lisa Aguilar LPN - Fully Assessed Reason for Visit: Transition Of Care [4074] Cmt: Message Prescriptions as of 10/19/2023 - promethazine (PHENERGAN) 25 mg tablet Take 1 tablet by mouth every 6 hours as needed. - insulin lispro (HUMALOG U-100 INSULIN) 100 unit/mL injection Use in the Insulin Pump for TDD of 100 units. - Lancets (MICROLET LANCET) lancets Use as instructed to test blood sugar 4 times daily. E10.65 - blood sugar diagnostic (CONTOUR NEXT TEST STRIPS) test strip Use as instructed to check blood glucose 5 times daily. E10.65 - lubiprostone (AMITIZA) 8 mcg capsule Take 1 capsule by mouth twice daily with meals. - prochlorperazine (COMPAZINE) 10 mg tablet Take 1 tablet by mouth every 6 hours as needed. - glucose 4 gram chewable tablet Take 4 tablets by mouth as needed. - insulin glargine (LANTUS SOLOSTAR, BASAGLAR KWIKPEN) 100 unit/mL (3 mL) Inject 43 Units subcutaneously as directed in the event of Insulin pump failure. - Acetone, Urine, Test (KETONE URINE TEST) Use as directed - SKYRIZI 150 mg/mL injection INJECT 150 MG UNDER THE SKIN EVERY 12 WEEKS Meds Comments as of 01/09/2020: All meds reviewed before sx. Pt has aye also for after sx. CL 01/09/20 IC PNV prenata plus multivitamin Problem List As Of Date 10/19/2023 Noted Resolved Retinal detachment [H33.20] 10/26/2012 12/25/2012 SUMMARY [V999.95] 12/25/2012 Acute chest pain [R07.9] 12/25/2012 Marfan syndrome [Q87.40] 12/25/2012 DM (diabetes mellitus) (HCC) [E11.9] 12/25/2012 Gastroparesis due to DM (HCC) [E11.43, K31.84] 12/25/2012 PTSD (post-traumatic stress disorder) [F43.10] 12/25/2012 DVT prophylaxis [MHX2936] 12/25/2012 09/04/2013 DISPOSITION AND FOLLOW-UP [V999.01] 12/25/2012 09/04/2013 HTN (hypertension) [I10] Hypertension in , antepartum [O16.9] 09/19/2013 01/08/2014 GBS (group B Streptococcus carrier), +RV cultur*11/11/2013 04/16/2014 [Z34.90] 11/22/2013 04/16/2014 Diabetes mellitus in (HCC) [O24.919] 12/25/2013 04/16/2014 Diabetic ketoacidosis without coma associated w*01/08/2014 02/04/2023 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] 01/08/2014 DVT prophylaxis [[id number]] 02/25/2014 04/16/2014 care and examination [Z39.2] 02/25/2014 04/16/2014 Near syncope [R55] 06/17/2014 Dyspnea [R06.00] 11/04/2014 Pre-op testing [Z01.818] 11/28/2014 Atelectasis [J98.11] 12/10/2014 Fluid overload [E87.70] 12/10/2014 12/15/2014 Tachycardia, unspecified [R00.0] 12/10/2014 12/12/2014 Post-operative pain [G89.18] 12/10/2014 Anxiety [F41.9] 12/10/2014 12/13/2014 Pre-existing type 1 diabetes mellitus in pregna*08/05/2015 10/03/2018 Hereditary disease in family possibly affecting*10/07/2015 Diabetes (HCC) [E11.9] 10/30/2015 Abdominal pain complicating , antepart*11/12/2015 [Z34.90] 01/28/2016 03/06/2017 Type 1 diabetes mellitus with stable proliferat*03/17/2017 Chronic idiopathic constipation [K59.04] 11/18/2021 Menstrual irregularity [N92.6] 04/18/2022 Screening for STD (sexually transmitted disease*04/18/2022 Chronic nausea [R11.0] 04/18/2022 Type 1 diabetes mellitus with hyperglycemia, wi*08/16/2022 Insulin pump status [Z96.41] 08/16/2022 Gastroparesis [K31.84] 11/23/2022 Generalized abdominal pain [R10.84] 12/08/2022 Nausea and vomiting [R11.2] 02/01/2023 Abdominal pain, suprapubic [R10.2] 02/07/2023 Encounter Status:Closed by KYARA LUIS on 10/19/23 [facility] 10-19-2023 History of Present illness Narrative Summary: TCM call TRANSITION CARE MANAGEMENT (TCM) FOLLOW-UP NOTE Provider Action/FYI Summary: TCM call placed to patient, no answer, message left to return my call at [phone] ext [phone] Datastage Developer plan for next outreach: Will follow up Signature Kyara Luis RN October 19, 2023 documented in this encounter [facility] 10-17-2023 History and physi cristina note Note Date/Time October 17, 2023 11:24am [facility] Medical Records Department [address] [place] [address] History & Physical Exam 10/17/23 1120 MR#: [id number] Acct: [id number] Name: KATHLEEN VILLA Rep #:[id number] : 1995 28 From: Vita Jefferson MD PCP: FUNMILAYO SMITH Status:ADM IN Location: ICU CVICU20 2-1 HPI - General General Date of Admission: 10/17/23 Date of Service: 10/17/23 Chief Complaint: Hyperglycemia HPI Narrative KATHLEEN VILLA, is a 28 F with a PMH as outlined who presents via the ED on 10/17/2023 with a complaint of hyperglycemia. She is a known type 1 diabetic. Shehas not been feeling well for the past few days. She admited to nausea and vomiting but denied any fever or chills or any other symptoms. Review of systemsis otherwise negative. Vitals in the ED were temperature of 98.2 with heart rate of 142 and blood pressure of 149/124. Respirate rate was 18. She was saturating at 96% on room air. CBC showed WBC of 13.6 with hemoglobin of 13.6 and platelets of 158. Chemistry shows sodium of 152 with anion gap of 18 and creatinine of 1.18. Bicarb was 16. Glucose was 534. Serum acetone level was moderate. She has beenadmitted to be managed for DKA and an known type I diabetic. [facility]LY [facility], [facility] Medical History Anxiety Borderline personality disorder Depression Diabetic gastroparesis Gastroparesis History of tachycardia Intractable vomiting Kidney disease Kidney stones Marfan syndrome PTSD (post-traumatic stress disorder) Smoker Substance abuse Type 1 diabetes Type 1 diabetes Home Medications insulin lispro 100 unit/mL subcutaneous solution (Humalog U-100 Insulin) See Rx Instructions .Route .COMPLEX 04/27/23 [History Last Taken 09/20/23] pen needle, diabetic 29 gauge x 1/2 (Ultra-Thin II Insulin Pen [place]) #100 ea08/10/23 [Rx Last Taken Unknown] prochlorperazine maleate 10 mg tablet (Compazine) 10 mg PO TID PRN nausea and vomiting #20 tabs 09/25/23 [Rx Last Taken Unknown] Allergy/AdvReac Type Severity Reaction Status Date / Time adhesive tape Allergy Intermediate Rash Verified 10/17/23 09:57 cephalexin [From Keflex] Allergy Intermediate Other Verified 10/17/23 09:57 morphine Allergy Intermediate Rash Verified 10/17/23 09:57 oxycodone [From Percocet] Allergy Intermediate Rash Verified 10/17/23 09:57 ondansetron AdvReac I BLACK Verified 10/17/23 09:57 OUT AND LOSE CONTROL OF MY BLADDER Surgical History H/O aortic root repair History of loop recorder Hx of appendectomy Hx of eye surgery Social History Smoking Status: Current some day smoker tobacco type: e-cigarettes substance use type: marijuana ROS Constitutional Constitutional: Reports chills, malaise and weakness; Denies anorexia, change inweight, fatigue or fever(s) Eyes Eyes: Denies change in vision ENT HEENT: Denies dysphagia or headache(s) Cardiovascular Cardiovascular: Denies chest pain, edema, orthopnea, palpitations, paroxysmal nocturnal dyspnea or syncope Respiratory/Chest Respiratory/Chest: Denies cough, shortness of breath at rest, shortness of breath with exertion or wheezing Gastrointestinal Gastrointestinal: Denies abdominal pain, diarrhea, nausea or vomiting Genitourinary Genitourinary: Denies dysuria Neurologic Neurologic: Denies confusion, dizziness, focal weakness or headache(s) Endocrine Endocrinology: Denies change in body appearance Vital Signs Vital Signs Vital Signs: 10/17/23 09:57 10/17/23 10:02 10/17/23 10:02 Temperature 98.2 F Temperature Source Oral Pulse Rate 138 H 142 H Respiratory Rate 18 Respiratory Effort Normal Respiratory Pattern Normal Blood Pressure 149/124 H Blood Pressure Mean 132 Pulse Ox 96 Oxygen Delivery Method Room Air Weight Weight: 167 lb 15.876 oz Body Mass Index (BMI) 24.7 Physical Exam Const alert and oriented x3 Constitutional Narrative: frail, weak. HEENT normocephalic, head/scalp atraumatic and moist oral mucous membranes Eyes PERRL and EOMs intact bilaterally Neck supple and no JVD Lymph Lymphatic: no lymphadenopathy noted Resp normal respiratory effort, normal air movement and clear to auscultation bilaterally Cardio regular rate, regular rhythm, S1 normal heart sound, S2 normal heart sound and no murmurs GI normal to inspection, nondistended, normoactive bowel sounds, soft to palpation and non-distended GI Narrative: Minimal generalized tenderness. No guarding. Extremity normal capillary refill, no clubbing, cyanosis or edema and no calf tenderness Skin General Skin Exam: no breakdown and turgor normal Neuro CN's II-XII intact bilaterally and no focal motor deficits Motor Exam: strength 5/5 throughout and general weakness Psych thought process normal and cooperative Appearance: appropriate Results Lab / Micro Data 10/17/23 10:35 10/17/23 13:00 Labs: Laboratory Results - last 24 hr 10/17/23 10:35: WBC 13.6 H, RBC 4.71, Hgb 13.6, Hct 42.5, MCV 90.2, MCH 28.9, MCHC 32.0, RDW Std Deviation 43.1, RDW Coeff of Joyce 13.1, Plt Count 138 L, MPV 12.2 H, Immature Gran % (Auto) 0.900, Neut % (Auto) 88.4 H, Lymph % (Auto) 7.8 L, Mclean % (Auto) 2.4, Eos % (Auto) 0.1, Baso % (Auto) 0.4, Absolute Neuts (auto) 12.0 H, Absolute Lymphs (auto) 1.06, Nucleated RBC % 0, Sodium 132 L, Potassium 4.8, Chloride 98, Carbon Dioxide 16.0 L, Anion Gap 18 H, BUN 22 H, Creatinine 1.18 H, Estim Creat Clear Calc 73.52, Est GFR (MDRD) Af Amer 70, Est GFR (MDRD) Non-Af 58 L, BUN/Creatinine Ratio 18.6, Glucose 534 H*, Calcium 9.1, Acetone Level MODERATE H Assessment & Plan Assessment/Plan (1) Nausea & vomiting: (2) DKA (diabetic ketoacidosis): PLAN: Plan #DKA in the setting of type 1 diabetes * blood sugar was >500 * anion gap was 18 and bicarb was 16. * admit to ICU * start on insulin drip; check BMP q4hrly * continue insulin drip until anion gap closes x 2, and then switch to her insulin pump * patient says she has been compliant with her insulin pump and diet, and her last A1C was 6.7. * follows up with an steward dishwasher in [facility] in [place]. * last A1C from 08/07/2023 was 7 * #Gastroparesis in the setting of type 1 diabetes mellitus * on compazine. Add on phenergan prn * will benefit from metoclorpromide if nausea persists. * #Hypotension * BP is down in the 90s systolic. * will hydrate with IVF and trend. * DVT prpphylaxis: lovenox. Charges/Coding Visit Charges Inpatient E&M: 63787 Init Hosp L3 10/17/23 1554 <Electronically signed by Vita Jefferson MD> Cosigner Signature (if applicable): CC: Dr. Vita Jefferson MD; FUNMILAYO SMITH~ Signed [facility] Work Phone: 1(607) 100-742702-20-2024 Discharge summary Author Alexandro Garces [facility] October 17, 2023 11:38am Note Date/Time October 17, 2023 11:24am [facility] Medical Records Department [address] [place] [address] Emergency Department Summary 10/17/23 MR#: [id number] Acct: [id number] Name: KATHLEEN VILLA Rep #:[id number] : 1995 28 From: Alexandro Garces MD PCP: FUNMILAYO SMITH Status:REG ER Location: ED HPI <Jacqueline Alvarez RN - Last Filed: 10/17/23 11:31> History of Present Illness Chief Complaint: Hyperglycemia Detail of Chief Complaint: High blood sugar at home this morning Informant: patient Onset/Context/Timing Onset: Today Timing: Continuous Associated Symptoms Associated Symptoms: Nausea, vomiting, abdominal pain Narrative Narrative: Patient presents to the ED with complaints of increased nausea beginning beginning 10/13/2019 in the evening. Patient reports she vomited once on 10/14/2023. Vomited 4-5 times this morning with the last episode containing bile. Patient reports being able to continue to drink water. Patient also reports increased lower abdominal pain beginning last night which she attributedto a gastroparesis attack. Patient describes a squeezing in the mid abdomen. Indicates she has chronic abdominal pain. She currently rates this pain a 8/10 with her baseline being 6/10. No aggravating or relieving factors. Patient reports feeling as if she is constipated. Reports small soft bowel movements with the last one being yesterday. Patient also reports her blood glucose at home was 556 this morning. Reports she averages approximately 100-110 over the last week. She reports increased thirst and increased urination. Patient also reports increased chest pain that she describes as a sharp ache worse with her vomiting. Rates as 7/10 with her baseline intermittent chest pain being 5/10. Patient reports trying Compazine on 10/15/2023 Phenergan on 10/16/2023 in the evening without relief. Patient indicates her last admission for DKA was withinthe last few months. Patient also reports last episode of gastroparesis was 08/21/2023. Prior similar symptoms: Yes Recent Illness/Hospitalization: No PFSH <Jacqueline Alvarez RN - Last Filed: 10/17/23 11:31> PFSH Medical History Anxiety Borderline personality disorder Depression Diabetic gastroparesis Gastroparesis History of tachycardia Intractable vomiting Kidney disease Kidney stones Marfan syndrome PTSD (post-traumatic stress disorder) Smoker Substance abuse Type 1 diabetes Type 1 diabetes Home Medications insulin lispro 100 unit/mL subcutaneous solution (Humalog U-100 Insulin) See Rx Instructions .Route .COMPLEX 04/27/23 [History Last Taken 09/20/23] pen needle, diabetic 29 gauge x 1/2 (Ultra-Thin II Insulin Pen [place]) #100 ea08/10/23 [Rx Last Taken Unknown] ibuprofen 600 mg tablet 600 mg PO Q6H PRN PRN pain #20 TABLETS 09/25/23 [Rx Last Taken Unknown] oseltamivir 75 mg capsule (Tamiflu) 75 mg PO BID 5 days #10 caps 09/25/23 [Rx Last Taken Unknown] prochlorperazine maleate 10 mg tablet (Compazine) 10 mg PO TID PRN nausea and vomiting #20 tabs 09/25/23 [Rx Last Taken Unknown] Allergy/AdvReac Type Severity Reaction Status Date / Time adhesive tape Allergy Intermediate Rash Verified 10/17/23 09:57 cephalexin [From Keflex] Allergy Intermediate Other Verified 10/17/23 09:57 morphine Allergy Intermediate Rash Verified 10/17/23 09:57 oxycodone [From Percocet] Allergy Intermediate Rash Verified 10/17/23 09:57 ondansetron AdvReac I BLACK Verified 10/17/23 09:57 OUT AND LOSE CONTROL OF MY BLADDER Surgical History H/O aortic root repair History of loop recorder Hx of appendectomy Hx of eye surgery Social History Smoking Status: Current some day smoker tobacco type: e-cigarettes substance use type: marijuana ROS <Jacqueline Alvarez RN - Last Filed: 10/17/23 11:31> ROS ED Constitutional Constitutional ED: Reports chills; Denies fever(s) or sweats Eyes Eyes: Denies blurry vision ENT ENT ED: Denies sore throat Cardiovascular Cardiovascular: Reports chest pain; Denies palpitations or racing heartbeat Respiratory/Chest Respiratory/Chest: Denies cough or dyspnea Gastrointestinal Gastrointestinal: Reports abdominal pain, constipation, nausea and vomiting Genitourinary Genitourinary ED: Reports dysuria and urinary frequency Musculoskeletal Musculoskeletal: Reports arthralgias; Denies myalgias Neurologic Neurologic: Reports weakness; Denies headache(s) Hematologic/Lymphatic Hematologic/Lymphatic: Reports systems reviewed and no addt'l complaints, exceptas documented EXAM <Jacqueline Alvarez RN - Last Filed: 10/17/23 11:31> Physical Exam Const Vital Signs: 10/17/23 09:57 10/17/23 10:02 10/17/23 10:02 Temperature 98.2 F Temperature Source Oral Pulse Rate 138 H 142 H Respiratory Rate 18 Respiratory Effort Normal Respiratory Pattern Normal Blood Pressure 149/124 H Blood Pressure Mean 132 Pulse Ox 96 Oxygen Delivery Method Room Air Positive well nourished and well developed General Appearance ED: well developed HEENT Reports moist mucous membranes Eyes PERRL Neck no lymphadenopathy Chest Wall inspection of chest normal and palpation of chest normal Resp normal respiratory effort and clear to auscultation bilaterally Cardio regular rhythm, S1 normal heart sound, S2 normal heart sound and no murmurs Rate: tachycardic GI Auscultation: normoactive bowel sounds Palpation: soft and tender LLQ, RLQ, LUQ and RUQ Extremity normal to inspection General Extremety ED: Negative for edema or tenderness General Extremity: Negative for edema Neuro oriented x3 Sensorium / Orientation: alert Psych mental status grossly normal Skin no rashes or lesions noted <Dr. Alexandro Garces MD - Last Filed: 10/17/23 11:38> Physical Exam Const Vital Signs: 10/17/23 09:57 10/17/23 10:02 10/17/23 10:02 Temperature 98.2 F Temperature Source Oral Pulse Rate 138 H 142 H Respiratory Rate 18 Respiratory Effort Normal Respiratory Pattern Normal Blood Pressure 149/124 H Blood Pressure Mean 132 Pulse Ox 96 Oxygen Delivery Method Room Air MDM <Jacqueline Alvarez RN - Last Filed: 10/17/23 11:31> [employer] Narrative Medical decision making narrative: Patient placed on monitoring and evaluation advisor. IV line initiated. Labwork obtained to evaluate for leukocytosis, anemia, and electrolyte derangement. Normal saline ordered due to vomiting. Reglan ordered due to vomiting. History & Record Review Discussion w/independent historian: Patient Additional record(s) reviewed:: Prior inpatient record Lab Data Attestation: I reviewed the patient's lab results. Labs: Laboratory Results - last 24 hr 10/17/23 10:35 WBC 13.6 H RBC 4.71 Hgb 13.6 Hct 42.5 MCV 90.2 MCH 28.9 MCHC 32.0 RDW Std Deviation 43.1 RDW Coeff of Joyce 13.1 Plt Count 138 L MPV 12.2 H Immature Gran % (Auto) 0.900 Neut % (Auto) 88.4 H Lymph % (Auto) 7.8 L Mclean % (Auto) 2.4 Eos % (Auto) 0.1 Baso % (Auto) 0.4 Absolute Neuts (auto) 12.0 H Absolute Lymphs (auto) 1.06 Nucleated RBC % 0 Sodium 132 L Potassium 4.8 Chloride 98 Carbon Dioxide 16.0 L Anion Gap 18 H BUN 22 H Creatinine 1.18 H Estim Creat Clear Calc 73.52 Est GFR (MDRD) Af Amer 70 Est GFR (MDRD) Non-Af 58 L BUN/Creatinine Ratio 18.6 Glucose 534 H* Calcium 9.1 Acetone Level MODERATE H EKG Initial EKG: Attestation: I personally reviewed and interpreted this EKG as follows: Interpretation: Sinus Tachycardia Comments: Sinus tachycardia with heart rate 121. No dysrhythmias or ischemia noted. Prior EKG tracings: not available for review Differential Diagnosis Differential Diagnosis: DKA Differential Diagnosis: Gastroparesis Management Discussion w/another healthcare provider: Other (Dr. Garces, ED provider) Treatment and Re-Evaluation :: Complete blood count shows white blood cells 13.6 with neutrophils 88.4%. Hemoglobin 13.6. Chemistries show hyponatremia at 132. Potassium normal at 4.8. Carbon dioxide low at 16. BUN 22 and creatinine 1.18. Anion gap 18 and glucose 534. Serum acetone is moderate. Patient initially given 1 L normal saline. Lab work reveals patient is in DKA. Additional liter normal saline ordered as well as an insulin drip. Upon reevaluation, patient appears to be resting more comfortably in bed. Heartrate 91 sinus rhythm. Patient aware she is in DKA. Asked to remove insulin pump which patient did. Patient aware of plan for admission. Dr. Garces discussed case with hospitalist. <Dr. Alexandro Garces MD - Last Filed: 10/17/23 11:38> [employer] Narrative Medical decision making narrative: Patient placed on monitoring and evaluation advisor. IV line initiated. Labwork obtained to evaluate for leukocytosis, anemia, and electrolyte derangement. Normal saline ordered due to vomiting. Reglan ordered due to vomiting. I have personally performed a face to face assessment of the patient and have reviewed the ASHLY Note. I performed a substantive portion of the visit including all aspects of the following. My herrera findings include: History is [28-year-old female history of diabetes with insulin pump. Has not felt well the last 2 days with nausea and vomiting today. History of prior DKA. No dysuria. No fever.] Exam is [27-year-old female vital signs stable initial blood pressure elevated 149/124. Tachycardic 140. Afebrile. H EENT exam dry mucous membranes. Pupils round reactive light extra motions are intact. No droop. Normal speech. Neck nontender no lymphadenopathy. Lungs clear to auscultation bilaterally. Heart tachycardic no murmur. Chest wall nontender. Abdomen soft nontender. No peritoneal signs. No distention. Moving all 4 extremities. Nontender no edema. No erythema. Neurologically patient is awake and alert with no focal motor deficits. Answering questions and following commands.] Medical Decision Making [28-year-old female with concern for DKA. Screening labs. IV fluids. Once the labs returned the patient is written for second liter normal saline and an insulin drip. I spoke to the hospitalist about admission to the ICU for DKA.] Other additions or changes: [None] Lab Data Lab results narrative: CBC shows a white count of 13.6. Patient often has elevated white counts between 16 and 22,000. H&H 13 and 42. Platelets 138. Electrolytes show sodium 132. Gap 18. BUN 22 creatinine 1.18 consistent with mild dehydration. Glucose 534. Acetone level moderate. Labs are consistent with DKA and dehydration. IV fluids and insulin drip. Labs: Laboratory Results - last 24 hr 10/17/23 10:35 WBC 13.6 H RBC 4.71 Hgb 13.6 Hct 42.5 MCV 90.2 MCH 28.9 MCHC 32.0 RDW Std Deviation 43.1 RDW Coeff of Joyce 13.1 Plt Count 138 L MPV 12.2 H Immature Gran % (Auto) 0.900 Neut % (Auto) 88.4 H Lymph % (Auto) 7.8 L Mclean % (Auto) 2.4 Eos % (Auto) 0.1 Baso % (Auto) 0.4 Absolute Neuts (auto) 12.0 H Absolute Lymphs (auto) 1.06 Nucleated RBC % 0 Sodium 132 L Potassium 4.8 Chloride 98 Carbon Dioxide 16.0 L Anion Gap 18 H BUN 22 H Creatinine 1.18 H Estim Creat Clear Calc 73.52 Est GFR (MDRD) Af Amer 70 Est GFR (MDRD) Non-Af 58 L BUN/Creatinine Ratio 18.6 Glucose 534 H* Calcium 9.1 Acetone Level MODERATE H Rhythm Strip Rhythm Strip: Sinus Tach Rate: 121 Ectopy: None <Dr. Alexandro Garces MD - Last Filed: 10/17/23 11:38> Critical Care Time Critical Care Time: Yes Critical care time (excluding procedures): 30-74 minutes, Including time spent:, Discussing w/Patient &/or Family/Chair Springer, Discussing w/Consultants, Arranging Admission or Transfer, Performing Direct Patient Care at Bedside and - (35 minutes) Discharge Plan Dx/Rx/DC Orders Clinical Impression: DKA (diabetic ketoacidosis), Tachycardia, Nausea & vomiting, Acute dehydration Disposition Disposition: Acute Care Hospital [facility] What to do if you have Problems For any increased pain, shortness of breath, bleeding, nausea or vomiting, chest pain, or any unexpected problems, contact your Primary Care Provider. Call [facility] ([phone]) or report to the closest Emergency Room. Call 911 if necessary. 10/17/23 1138 <Electronically signed by Alexandro Garces MD> Cosigner Signature (if applicable): 10/17/23 1131 <Electronically signed by Jacqueline Alvarez RN> CC: FUNMILAYO SMITH ~ Signed [facility] Work Phone: 1(790) 702-179902-15-2024 NoteHNO ID: [id number] Author: KYARA LUIS RN Service: ? Author Type: Registered Nurse Type: Progress Notes Filed: 10/12/2023 14:16 Note Text: Summary: PCC follow up PRIMARY CARE COORDINATION FOLLOW-UP NOTE Provider Action/FYI Patient identified by name and date of . YES Summary: PCC follow up placed to patient, has moved out of retirement, now sharing and apartment. Per patient is working with endocrinology on CGM supplies. Currently checking via fingerstick. continues to have nausea, taking compazine. Encouraged to call and schedule follow up with PCP. was not able to make appointment on 10/03 due to moving. has all medications, taking as directed. is following diet, attempting to balance diabetic diet with foods that she can tolerate with her gastroparesis. Will follow up Goals: Active Goals - Current status as of 10/12/2023 at 2:01 PM Most Recent Blood Pressure < 130/80 122/62 (09/12/2023) Confirm medication adherence of all prescribed medications and uses them correctly On track (10/12/2023) Hemoglobin A1C < 7 6.2 (12/30/2021) LDL at or below 100 mg/dL or on a high statin [employer] plan for next outreach: Will follow up Signature Kyara Luis RN October 12, 2023[facility]02-15-2024 NotePatient Outreach (MRCAC) DAISYKATHLEEN Richter ([id number]) 1995 F CHT Date Time Provider Department 10/12/23 KYARA LUIS [facility] During your visit today, we recorded the following information about you: Kyara Luis RN 10/12/2023 2:16 PM Signed PRIMARY CARE COORDINATION FOLLOW-UP NOTE Provider Action/FYI Patient identified by name and date of . YES Summary: PCC follow up placed to patient, has moved out of retirement, now sharing and apartment. Per patient is working with endocrinology on CGM supplies. Currently checking via fingerstick. continues to have nausea, taking compazine. Encouraged to call and schedule follow up with PCP. was not able to make appointment on 10/03 due to moving. has all medications, taking as directed. is following diet, attempting to balance diabetic diet with foods that she can tolerate with her gastroparesis. Will follow up Goals: Active Goals - Current status as of 10/12/2023 at 2:01 PM Most Recent Blood Pressure < 130/80 122/62 (09/12/2023) Confirm medication adherence of all prescribed medications and uses them correctly On track (10/12/2023) Hemoglobin A1C < 7 6.2 (12/30/2021) LDL at or below 100 mg/dL or on a high statin [employer] plan for next outreach: Will follow up Signature Kyara Luis RN October 12, 2023 Allergies As of Date: 10/12/2023 Noted Allergy Reaction KEFLEX (CEPHALEXIN) 11/12/2013 14 - Other: See Comments Comments: Yeast infection MORPHINE 08/30/2013 2 - Rash 9 - Itching ZOFRAN (ONDANSETRON HCL (PF)) 01/14/2015 14 - Other: See Comments Comments: Syncope, incontinence ADHESIVE TAPE (ROSINS) 09/04/2013 2 - Rash INDOMETHACIN 11/20/2003 2 - Rash PERCOCET (OXYCODONE-ACETAMINOPHEN)01/10/2014 2 - Rash 5 - Intolerance 9 - Itching ADHESIVE 11/07/2022 2 - Rash Date Reviewed: 09/12/2023 Reviewed by: Lisa Aguilar LPN - Fully Assessed Reason for Visit: 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 [3503] Prescriptions as of 10/12/2023 - promethazine (PHENERGAN) 25 mg tablet Take 1 tablet by mouth every 6 hours as needed. - insulin lispro (HUMALOG U-100 INSULIN) 100 unit/mL injection Use in the Insulin Pump for TDD of 100 units. - Lancets (MICROLET LANCET) lancets Use as instructed to test blood sugar 4 times daily. E10.65 - blood sugar diagnostic (CONTOUR NEXT TEST STRIPS) test strip Use as instructed to check blood glucose 5 times daily. E10.65 - lubiprostone (AMITIZA) 8 mcg capsule Take 1 capsule by mouth twice daily with meals. - prochlorperazine (COMPAZINE) 10 mg tablet Take 1 tablet by mouth every 6 hours as needed. - glucose 4 gram chewable tablet Take 4 tablets by mouth as needed. - insulin glargine (LANTUS SOLOSTAR, BASAGLAR KWIKPEN) 100 unit/mL (3 mL) Inject 43 Units subcutaneously as directed in the event of Insulin pump failure. - Acetone, Urine, Test (KETONE URINE TEST) Use as directed - SKYRIZI 150 mg/mL injection INJECT 150 MG UNDER THE SKIN EVERY 12 WEEKS Meds Comments as of 01/09/2020: All meds reviewed before sx. Pt has aye also for after sx. CL 01/09/20 IC PNV prenata plus multivitamin Problem List As Of Date 10/12/2023 Noted Resolved Retinal detachment [H33.20] 10/26/2012 12/25/2012 SUMMARY [V999.95] 12/25/2012 Acute chest pain [R07.9] 12/25/2012 Marfan syndrome [Q87.40] 12/25/2012 DM (diabetes mellitus) (HCC) [E11.9] 12/25/2012 Gastroparesis due to DM (HCC) [E11.43, K31.84] 12/25/2012 PTSD (post-traumatic stress disorder) [F43.10] 12/25/2012 DVT prophylaxis [LWC8081] 12/25/2012 09/04/2013 DISPOSITION AND FOLLOW-UP [V999.01] 12/25/2012 09/04/2013 HTN (hypertension) [I10] Hypertension in , antepartum [O16.9] 09/19/2013 01/08/2014 GBS (group B Streptococcus carrier), +RV cultur*11/11/2013 04/16/2014 [Z34.90] 11/22/2013 04/16/2014 Diabetes mellitus in (HCC) [O24.919] 12/25/2013 04/16/2014 Diabetic ketoacidosis without coma associated w*01/08/2014 02/04/2023 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] 01/08/2014 DVT prophylaxis [JPQ9550] 02/25/2014 04/16/2014 care and examination [Z39.2] 02/25/2014 04/16/2014 Near syncope [R55] 06/17/2014 Dyspnea [R06.00] 11/04/2014 Pre-op testing [Z01.818] 11/28/2014 Atelectasis [J98.11] 12/10/2014 Fluid overload [E87.70] 12/10/2014 12/15/2014 Tachycardia, unspecified [R00.0] 12/10/2014 12/12/2014 Post-operative pain [G89.18] 12/10/2014 Anxiety [F41.9] 12/10/2014 12/13/2014 Pre-existing type 1 diabetes mellitus in pregna*08/05/2015 10/03/2018 Hereditary disease in family possibly affecting*10/07/2015 Diabetes (HCC) [E11.9] 10/30/2015 Abdominal pain complicating , antepart*11/12/2015 [Z34.90] 01/28/2016 03/06/2017 Type 1 diabetes mellitus with stable proliferat*03/17/2017 Chronic idiopathic constipation [K59.04] 11/18/2021 Menstrual i (more content not included)...[facility]02-15-2024 History of Present illness Narrative* Kyara Luis RN - 10/12/2023 1:55 PM EST Summary: PCC follow up PRIMARY CARE COORDINATION FOLLOW-UP NOTE Provider Action/FYI Patient identified by name and date of . YES Summary: PCC follow up placed to patient, has moved out of retirement, now sharing and apartment. Per patient is working with endocrinology on CGM supplies. Currently checking via fingerstick. continues to have nausea, taking compazine. Encouraged to call and schedule follow up with PCP. was not able to make appointment on 10/03 due to moving. has all medications, taking as directed. is following diet, attempting to balance diabetic diet with foods that she can tolerate with her gastroparesis. Will follow up Goals: Active Goals - Current status as of 10/12/2023 at 2:01 PM Most Recent Blood Pressure < 130/80 122/62 (09/12/2023) Confirm medication adherence of all prescribed medications and uses them correctly On track (10/12/2023) Hemoglobin A1C < 7 6.2 (12/30/2021) LDL at or below 100 mg/dL or on a high statin [employer] plan for next outreach: Will follow up Signature Kyara Luis RN October 12, 2023 [facility] Miscellaneous Notes* Telephone Encounter - Lisa Aguilar LPN - 10/02/2023 10:52 AM EST [employer] forms faxed to office for pump and CGM supplies, [employer] and [employer]. [employer] as back up. Completed forms and JOSE documentation faxed as requested. Lisa Aguilar LPN [facility]24 NotePatient Outreach (MRCAC) KATHLEEN VILLA ([id number]) 1995 F CHT Date Time Provider Department 09/29/23 KYARA LUIS [facility] During your visit today, we recorded the following information about you: Kyara Luis RN 09/29/2023 11:04 AM Signed PRIMARY CARE COORDINATION FOLLOW-UP NOTE Provider Action/FYI Patient identified by name and date of . YES Summary: Follow up call placed to patient, states continues to have nausea, taking compazine. Per patient has been moved to different retirement in [place] and will not be moving to [place]. States blood sugars are stable. Using insurance for transportation and will need to call them to update her new address. Has all medications, taking as directed. [employer] plan for next outreach: Will follow up Signature Kyara Luis RN September 29, 2023 Allergies As of Date: 09/29/2023 Noted Allergy Reaction KEFLEX (CEPHALEXIN) 11/12/2013 14 - Other: See Comments Comments: Yeast infection MORPHINE 08/30/2013 2 - Rash 9 - Itching ZOFRAN (ONDANSETRON HCL (PF)) 01/14/2015 14 - Other: See Comments Comments: Syncope, incontinence ADHESIVE TAPE (ROSINS) 09/04/2013 2 - Rash INDOMETHACIN 11/20/2003 2 - Rash PERCOCET (OXYCODONE-ACETAMINOPHEN)01/10/2014 2 - Rash 5 - Intolerance 9 - Itching ADHESIVE 11/07/2022 2 - Rash Date Reviewed: 09/12/2023 Reviewed by: Lisa Aguilar LPN - Fully 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 - insulin lispro (HUMALOG U-100 INSULIN) 100 unit/mL injection Use in the Insulin Pump for TDD of 100 units. - Lancets (MICROLET LANCET) lancets Use as instructed to test blood sugar 4 times daily. E10.65 - blood sugar diagnostic (CONTOUR NEXT TEST STRIPS) test strip Use as instructed to check blood glucose 5 times daily. E10.65 - lubiprostone (AMITIZA) 8 mcg capsule Take 1 capsule by mouth twice daily with meals. - prochlorperazine (COMPAZINE) 10 mg tablet Take 1 tablet by mouth every 6 hours as needed. - glucose 4 gram chewable tablet Take 4 tablets by mouth as needed. - insulin glargine (LANTUS SOLOSTAR, BASAGLAR VANIKPEN) 100 unit/mL (3 mL) Inject 43 Units subcutaneously as directed in the event of Insulin pump failure. - Acetone, Urine, Test (KETONE URINE TEST) Use as directed - SKYRIZI 150 mg/mL injection INJECT 150 MG UNDER THE SKIN EVERY 12 WEEKS Meds Comments as of 01/09/2020: All meds reviewed before sx. Pt has aye also for after sx. CL 01/09/20 IC PNV prenata plus multivitamin Problem List As Of Date 09/29/2023 Noted Resolved Retinal detachment [H33.20] 10/26/2012 12/25/2012 SUMMARY [V999.95] 12/25/2012 Acute chest pain [R07.9] 12/25/2012 Marfan syndrome [Q87.40] 12/25/2012 DM (diabetes mellitus) ([facility]) [E11.9] 12/25/2012 Gastroparesis due to DM (HCC) [E11.43, K31.84] 12/25/2012 PTSD (post-traumatic stress disorder) [F43.10] 12/25/2012 DVT prophylaxis [[id number]] 12/25/2012 09/04/2013 DISPOSITION AND FOLLOW-UP [V999.01] 12/25/2012 09/04/2013 HTN (hypertension) [I10] Hypertension in , antepartum [O16.9] 09/19/2013 01/08/2014 GBS (group B Streptococcus carrier), +RV cultur*11/11/2013 04/16/2014 [Z34.90] 11/22/2013 04/16/2014 Diabetes mellitus in (HCC) [O24.919] 12/25/2013 04/16/2014 Diabetic ketoacidosis without coma associated w*01/08/2014 02/04/2023 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] 01/08/2014 DVT prophylaxis [[id number]] 02/25/2014 04/16/2014 care and examination [Z39.2] 02/25/2014 04/16/2014 Near syncope [R55] 06/17/2014 Dyspnea [R06.00] 11/04/2014 Pre-op testing [Z01.818] 11/28/2014 Atelectasis [J98.11] 12/10/2014 Fluid overload [E87.70] 12/10/2014 12/15/2014 Tachycardia, unspecified [R00.0] 12/10/2014 12/12/2014 Post-operative pain [G89.18] 12/10/2014 Anxiety [F41.9] 12/10/2014 12/13/2014 Pre-existing type 1 diabetes mellitus in pregna*08/05/2015 10/03/2018 Hereditary disease in family possibly affecting*10/07/2015 Diabetes (HCC) [E11.9] 10/30/2015 Abdominal pain complicating , antepart*11/12/2015 [Z34.90] 01/28/2016 03/06/2017 Type 1 diabetes mellitus with stable proliferat*03/17/2017 Chronic idiopathic constipation [K59.04] 11/18/2021 Menstrual irregularity [N92.6] 04/18/2022 Screening for STD (sexually transmitted disease*04/18/2022 Chronic nausea [R11.0] 04/18/2022 Type 1 diabetes mellitus with hyperglycemia, wi*08/16/2022 Insulin pump status [Z96.41] 08/16/2022 Gastroparesis [K31.84] 11/23/2022 Generalized abdominal pain [R10.84] 12/08/2022 Nausea and vomiting [R11.2] 02/01/2023 Abdominal pain, suprapubic [R10.2] 02/07/2023 Encounter Status:Closed by KYARA LUIS on 09/29/23[facility] 09-29-2023 NoteHNO ID: [id number] Author: KYARA LUIS RN Service: ? Author Type: Registered Nurse Type: Progress Notes Filed: 09/29/2023 11:04 Note Text: Summary: PCC follow up PRIMARY CARE COORDINATION FOLLOW-UP NOTE Provider Action/FYI Patient identified by name and date of . YES Summary: Follow up call placed to patient, continues to have nausea, taking compazine. Per patient has been moved to different retirement in [place] and will not be moving to [place]. States blood sugars are stable. Using insurance for transportation and will need to call them to update her new address. Has all medications, taking as directed. Datastage Developer plan for next outreach: Will follow up Signature Kyara Luis RN September 29, 2023[facility]02-02-2024 History of Present illness Narrative* Kyara Luis RN - 09/29/2023 10:48 AM ESTSummary: PCC follow up PRIMARY CARE COORDINATION FOLLOW-UP NOTE Provider Action/FYI Patient identified by name and date of . YES Summary: Follow up call placed to patient, continues to have nausea, taking compazine. Per patient has been moved to different retirement in [place] and will not be moving to [place]. States blood sugars are stable. Using insurance for transportation and will need to call them to update her new address. Has all medications, taking as directed. Datastage Developer plan for next outreach: Will follow up Signature Kyara Luis RN September 29, 2023 [facility] NoteHNO ID: [id number] Author: KYARA LUIS RN Service: ? 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 States blood sugar today has been continued nausea, no relief from reglan prescribed in ED, requesting phenergan, states has been on in the past and is out of refills. Patient has been living in homeless retirement in [place] making it difficult to keep appointments, also needing follow up with PCP. plan is to be moving to [place] and will be staying at [facility]. Message to office Spoke with patient aware phenergan filled and PCP scheduled for 10/03/23 Patient identified by name and date : YES SUMMARY: -Patient discharged from [place] ED on 09/20/22. -Follow up appointment on Message to office. -Medication review done Yes. -Presented with: Nausea, hyperglycemia NEW MEDICATIONS: metoclopramide HCl [Reglan] 5 mg tablet 10 mg PO Q6H Qty: 10 MEDS HELD/DISCONTINUED: NA BRIEF ED COURSE: Patient is a 28-year-old woman with history of type 1 diabetes. She is status post thoracic surg for aortic aneurysm. She states her blood sugar was upper 200s and she took insulin per protocol. Her blood sugars continue to rise. She reports that she does not feel well. She had nausea and vomiting since this morning. She does endorse probably urea, polydipsia and nocturia. She denies dysuria or hematuria. She denies blood in her emesis or coffee-ground appearing emesis. She denies black or maroon-colored stool. She does admit to recent upper respiratory symptoms. She presently has a mild headache. Denies light sensitivity. Denies neck pain or neck stiffness. Her cough is nonproductive. She vomits after coughing as well. Medical decision making narrative: Patient with hyperglycemia. Need to evaluate for DKA. Will obtain EKG to assess for peaked T waves or changes concerning for hyperkalemia. IV fluids were ordered. Since she is allergic to Zofran she was treated with Reglan for her nausea and vomiting. 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 States blood sugar today has been continued nausea, no relief from reglan prescribed in ED, requesting phenergan, states has been on in the past and is out of refills. Patient has been living in homeless retirement in [place] making it difficult to keep appointments, also needing follow up with PCP. plan is to be moving to [place] and will be staying at [facility]. Message to office Spoke with patient aware phenergan filled and PCP scheduled for 10/03/23 Patient identified by name and date : YES SUMMARY: -Patient discharged from [place] ED on 09/20/22. -Follow up appointment on Message to office. -Medication review done Yes. -Presented with: Nausea, hyperglycemia NEW MEDICATIONS: metoclopramide HCl [Reglan] 5 mg tablet 10 mg PO Q6H Qty: 10 MEDS HELD/DISCONTINUED: NA BRIEF ED COURSE: Patient is a 28-year-old woman with history of type 1 diabetes. She is status post thoracic surg for aortic aneurysm. She states her blood sugar was upper 200s and she took insulin per protocol. Her blood sugars continue to rise. She reports that she does not feel well. She had nausea and vomiting since this morning. She does endorse probably urea, polydipsia and nocturia. She denies dysuria or hematuria. She denies blood in her emesis or coffee-ground appearing emesis. She denies black or maroon-colored stool. She does admit to recent upper respiratory symptoms. She presently has a mild headache. Denies light sensitivity. Denies neck pain or neck stiffness. Her cough is nonproductive. She vomits after coughing as well. Medical decision making narrative: Patient with hyperglycemia. Need to evaluate for DKA. Will obtain EKG to assess for peaked T waves or changes concerning for hyperkalemia. IV fluids were ordered. Since she is allergic to Zofran she was treated with Reglan for her nausea and vomiting. 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 - insulin lispro (HUMALOG U-100 INSULIN) 100 unit/mL injection Use in the Insulin Pump for TDD of 100 units. - Lancets (MICROLET LANCET) lancets Use as instructed to test blood sugar 4 times daily. E10.65 - blood sugar diagnostic (CONTOUR NEXT TEST STRIPS) test strip Use as instructed to check blood glucose 5 times daily. E10.65 - lubiprostone (AMITIZA) 8 mcg capsule Take 1 capsule by mouth twice daily with meals. - prochlorperazine (COMPAZINE) 10 mg tablet Take 1 tablet by mouth every 6 hours as needed. - glucose 4 gram chewable tablet Take 4 tablets by mouth as needed. - insulin glargine (LANTUS SOLOSTAR, BASAGLAR KWIKPEN) 100 unit/mL (3 mL) Inject 43 Units subcutaneously as directed in the event of Insulin pump failure. - Acetone, Urine, Test (KETONE URINE TEST) Use as directed - SKYRIZI 150 mg/mL injection INJECT 150 MG UNDER THE SKIN EVERY 12 WEEKS Meds Comments as of 01/09/2020: All meds reviewed before sx. Pt has aye also for after sx. CL 01/09/20 IC PNV prenata plus multivitamin Problem List As Of Date 09/21/2023 Noted Resolved Retinal detachment [H33.20] 10/26/2012 12/25/2012 SUMMARY [V999.95] 12/25/2012 Acute chest pain [R07.9] 12/25/2012 Marfan syndrome [Q87.40] 12/25/2012 DM (diabetes mellitus) (HCC) [E11.9] 12/25/2012 Gastroparesis due to DM (HCC) [E11.43, K31.84] 12/25/2012 PTSD (post-t (more content not included)...[facility]12-21-2023 Telephone encounter Note* Telephone Encounter - Mary Moreno PharmD - 08/17/2023 12:47 PM EST SUBJECTIVE Kathleen Villa is a 28 year old Female who was referred to [facility] for clinical management services for Skyrizi 150 MG/ML. Diagnosis Psoriasis vulgaris L40.0 OBJECTIVE Medications: Betamethasone Valerate 0.1 % CREA EX Clobetasol Propionate 0.05 % SOLN EX [place]/FS Body 0.01 % OIL EX Levothyroxine Sodium 50 MCG TABS PO Linzess 145 MCG CAPS PO Nizoral 2 % SHAM EX Skyrizi 150 MG/ML SOSY SC Temovate 0.05 % OINT EX Triamcinolone Acetonide 0.1 % CREA EX Allergies: Keflex Adhesive morphine Percocet Zofran Medical History & Comorbidities: Problem list has been reviewed in the EHR Data Collect Skyrizi 08/17/2023 DLQI Assessment Date: 08/17/2023 Value: 1 ASSESSMENT / PLAN Skyrizi 150 MG/ML Administration Counseled on administration directions, Inject 150 mg under the skin at week 0, 4, and every 12 weeks thereafter. Remove dose from refrigerator 30-60 minutes prior to injection and allow to warm to room temperature. Rotate injection sites - best sites for a subcutaneous injection is top of the thighs or abdomen/abdominal region at least 2 inches away from the belly button. May apply ice or heat the spot prior to and after injection. Can treat with OTC agents for minor irritation including hydrocortisone or diphenhydramine. The patient will inject the medication herself every 12 weeks. I do not foresee any barriers as the patient is comfortable with injection technique. Contact Advised when to contact pharmacy or provider. Provided with direct number to clinical pharmacist for questions or concerns prior to scheduled follow up. The patient was oriented to the pharmacy s services upon their initial fill and it was communicated that they can participate in this plan of careby speaking with a Pharmacist which is offered during each reassessment. Disease state education Counseled on general disease state management strategies. Emphasized that Psoriasis is a chronic medical condition that requires consistent adherence to prescribed medication in order to achieve treatment goals. Monitoring and follow up Reviewed therapy monitoring parameters and importance to maintain follow-up lab and provider visits. The patient is aware to let us know if any issues or reactions occur while on this medication so that we can let the provider know as well as any changes in medications so we can assess for interactions and such. Storage/Disposal Counseled on proper storage of medication in the refrigerator between 36-48 degrees F. Expectations and Goals of therapy Educated that full effect of new biologic therapy may take up 2-3 months - it is important to remain on any other therapies currently prescribed for management. May also need to continue to use pain relievers and other therapies for symptom management in the interim. Goals of therapy include reducebody surface area coverage, reduce pain/itching, reduce flaring, DLQI improvement. Adherence Since this is a preventative therapy, the patient needs to take Skyrizi routinely every 84 days regardless of the activity of their disease. Side effects Educated that common side effects include injection reactions and infection. Emphasis placed on self-management of infection related issues, particularly as it relates to withholding the next dose ofSkyrizi if there is an active infection or if a course of antibiotic therapy is still in progress. Emphasized that rare, but serious adverse events such as blood cancers and demyelinating disorders have happened in patients taking biologic medications, so regular follow up is essential to ensure safety. Counseled that patient should not receive live vaccines while on Skyrizi due to risk of potential adverse effects. Efficacy Discussed with patient the importance of ensuring that she continue to inject as prescribed. Pharmacy Recommendations/Education/Other Patient knows to let us know if any changes in the medication are to occur so that we can properly assess for interactions and such. Patient knows we are available -04-01 at [phone]. Mary Moreno Clinical Pharmacist [phone] Miscellaneous Notes* Telephone Encounter - Mary Moreno PharmD - 08/17/2023 12:47 PM EST SUBJECTIVE Kathleen Villa is a 28 year old Female who was referred to [facility] for clinical management services for Skyrizi 150 MG/ML. Diagnosis Psoriasis vulgaris L40.0 OBJECTIVE Medications: Betamethasone Valerate 0.1 % CREA EX Clobetasol Propionate 0.05 % SOLN EX [place]/FS Body 0.01 % OIL EX Levothyroxine Sodium 50 MCG TABS PO Linzess 145 MCG CAPS PO Nizoral 2 % SHAM EX Skyrizi 150 MG/ML SOSY SC Temovate 0.05 % OINT EX Triamcinolone Acetonide 0.1 % CREA EX Allergies: Keflex Adhesive morphine Percocet Zofran Medical History & Comorbidities: Problem list has been reviewed in the EHR Data Collect Anaizi 08/17/2023 DLQI Assessment Date: 08/17/2023 Value: 1 ASSESSMENT / PLAN Skyrizi 150 MG/ML Administration Counseled on administration directions, Inject 150 mg under the skin at week 0, 4, and every 12 weeks thereafter. Remove dose from refrigerator 30-60 minutes prior to injection and allow to warm to room temperature. Rotate injection sites - best sites for a subcutaneous injection is top of the thighs or abdomen/abdominal region at least 2 inches away from the belly button. May apply ice or heat the spot prior to and after injection. Can treat with OTC agents for minor irritation including hydrocortisone or diphenhydramine. The patient will inject the medication herself every 12 weeks. I do not foresee any barriers as the patient is comfortable with injection technique. Contact Advised when to contact pharmacy or provider. Provided with direct number to clinical pharmacist for questions or concerns prior to scheduled follow up. The patient was oriented to the pharmacy s services upon their initial fill and it was communicated that they can participate in this plan of careby speaking with a Pharmacist which is offered during each reassessment. Disease state education Counseled on general disease state management strategies. Emphasized that Psoriasis is a chronic medical condition that requires consistent adherence to prescribed medication in order to achieve treatment goals. Monitoring and follow up Reviewed therapy monitoring parameters and importance to maintain follow-up lab and provider visits. The patient is aware to let us know if any issues or reactions occur while on this medication so that we can let the provider know as well as any changes in medications so we can assess for interactions and such. Storage/Disposal Counseled on proper storage of medication in the refrigerator between 36-48 degrees F. Expectations and Goals of therapy Educated that full effect of new biologic therapy may take up 2-3 months - it is important to remain on any other therapies currently prescribed for management. May also need to continue to use pain relievers and other therapies for symptom management in the interim. Goals of therapy include reducebody surface area coverage, reduce pain/itching, reduce flaring, DLQI improvement. Adherence Since this is a preventative therapy, the patient needs to take Skyrizi routinely every 84 days regardless of the activity of their disease. Side effects Educated that common side effects include injection reactions and infection. Emphasis placed on self-management of infection related issues, particularly as it relates to withholding the next dose ofSkyrizi if there is an active infection or if a course of antibiotic therapy is still in progress. Emphasized that rare, but serious adverse events such as blood cancers and demyelinating disorders have happened in patients taking biologic medications, so regular follow up is essential to ensure safety. Counseled that patient should not receive live vaccines while on Skyrizi due to risk of potential adverse effects. Efficacy Discussed with patient the importance of ensuring that she continue to inject as prescribed. Pharmacy Recommendations/Education/Other Patient knows to let us know if any changes in the medication are to occur so that we can properly assess for interactions and such. Patient knows we are available M- 8 at [phone]. Mary Moreno Clinical Pharmacist [facility] documented in this [facility]12-19-2023 NotePatient Outreach (MRCAC) KATHLEEN VILLA ([id number]) 1995 F T Date Time Provider Department 08/15/23 KYARA LUIS During your visit today, we recorded the following information about you: Kyara Luis RN 08/15/2023 11:57 AM Signed Error Kyara Luis RN 08/15/2023 11:57 AM Signed Call Summary: Call placed to Kathleen Villa for transitional care management follow-up call. Spoke with patient, introduced self, explained role, discharge instructions, medications and follow up appointments reviewed with patient. Per patient insulin pump malfunctioning and has received new supplies from [employer]. Has reached out to endocrinology and will keep scheduled appointment in August. Has picked up new medications, taking as directed, no further abdominal pain and blood sugar this am [email or web address] Sweet is currently staying in retirement and working with staff to secure housing. Declining follow up calls. Encouraged to reach out to PCP or specialty provider if new or worsening symptoms. APPOINTMENTS/SERVICES Reviewed follow up appointments per discharge summary. Yes Confirmed patient has transportation to appointments: Yes Reviewed the following additional services: None MEDICATION REVIEW Confirmed patient able to obtain medications (new and/or refills): Yes Reviewed medications below in detail. Patient reports compliance with appropriate medications at this time. FOLLOW-UP Additional Concerns/ Needs: None Additional follow-up: None needed at this time Routed to PCP: No Patient identified by name and . TRANSITION CARE MANAGEMENT: Date of Outreach: 08/15/2023 Outreach Attempt 1: Contact Not Made Outreach Attempt 2: Contact Made Date of Discharge 08/10/2023 Some recent data might be hidden SUMMARY: -Admitted for: DKA -Pt discharged from [place] on 08/10/23. -Follow up appointment on Declines PCP will follow up as scheduled with ashley. -Medication review completed. NEW OR CHANGED MEDICATIONS: metronidazole 500 mg Tablet 500 mg PO Q8 4 Days Qty: 12 MEDS HELD/DISCONTINUED: NA BRIEF HOSPITAL COURSE: DKA, resolved; history of type 1 diabetes mellitus on insulin pump, with history of diabetic gastroparesis DKA on presentation secondary to insulin blood malfunction as noted by patient versus insulin nonadherence, with enterocolitis as noted below likely contributing. BG 548, lactic acid 4.4, positive serum acetone with anion gap metabolic acidosis on admission. Placed in ICU on admission. community educator evaluated on 08/07, patient reported no needs at this time. Patient transitioned off insulin drip on evening of 08/07, unfortunately had increased blood sugars with reopening of gap that evening, required insulin drip again in civil engineer helper of 08/08. Gap closed on morning of 08/08. Patient started using her insulin pump on 08/08, had stable blood sugars for about 8 to 10 hours but then unfortunately her pump malfunctioned again. Discussed with Dr. Martinez with endocrinology and [employer] rep over the phone on 08/09, who suspected that patient's plastic tubing of catheter injection site was bending and malfunctioning. [employer] sent new catheter supplies to her home prior to discharge. Patient was discharged with short courses of Lantus and Humalog in case new supplies did not arrive in time for her to use right after arriving at home. Recommended close outpatient follow-up with her steward dishwasher. Enterocolitis, improving CT abdomen pelvis on admit showed fluid-filled mildly thickened loops of small bowel and proximal colon consistent with enterocolitis. WBC count 20 on admit, improving. Stool panel, C. difficile, lactoferrin negative. Ova and parasites pending on discharge. WBC count improved, patient appeared to have subjective improvement of abdominal pain and discomfort. Discharged on p.o. Flagyl to complete 7-day course. You may be receiving a survey about your experience. We really value your feedback. If you would fill out the survey, it would help us tremendously as we continue to improve. Kyara Luis RN August 15, 2023 11:46 AM Allergies As of Date: 08/15/2023 Noted Allergy Reaction PERCOCET (OXYCODONE-ACETAMINOPHEN)01/10/2014 2 - Rash 5 - Intolerance 9 - Itching ADHESIVE TAPE (ROSINS) 09/04/2013 2 - Rash INDOMETHACIN 11/20/2003 2 - Rash KEFLEX (CEPHALEXIN) 11/12/2013 14 - Other: See Comments Comments: Makes infection worse- patient denies this on 02/25/2014 MORPHINE 08/30/2013 2 - Rash 9 - Itching ZOFRAN (ONDANSETRON HCL (PF)) 01/14/2015 14 - Other: See Comments Comments: syncope ADHESIVE 11/07/2022 2 - Rash Date Reviewed: 07/12/2023 Reviewed by: Jhoana Hope, STIVEN - Fully Assessed Reason for Visit: Transition Of Care [4074] Prescriptions as of 08/15/2023 - insulin lispro (HUMALOG U-100 INSULIN) 100 unit/mL i (more content not included)...[facility]12-19-2023 NoteHNO ID: [id number] Author: Kyara Luis RN Service: ? Author Type: Registered Nurse Type: Progress Notes Filed: 08/15/2023 11:57 AM Note Text: Call Summary: Call placed to Kathleen Villa for transitional care management follow-up call. Spoke with patient, introduced self, explained role, discharge instructions, medications and follow up appointments reviewed with patient. Per patient insulin pump malfunctioning and has received new supplies from [employer]. Has reached out to endocrinology and will keep scheduled appointment in August. Has picked up new medications, taking as directed, no further abdominal pain and blood sugar this am [email or web address] Sweet is currently staying in retirement and working with staff to secure housing. Declining follow up calls. Encouraged to reach out to PCP or specialty provider if new or worsening symptoms. APPOINTMENTS/SERVICES Reviewed follow up appointments per discharge summary. Yes Confirmed patient has transportation to appointments: Yes Reviewed the following additional services: None MEDICATION REVIEW Confirmed patient able to obtain medications (new and/or refills): Yes Reviewed medications below in detail. Patient reports compliance with appropriate medications at this time. FOLLOW-UP Additional Concerns/ Needs: None Additional follow-up: None needed at this time Routed to PCP: No Patient identified by name and . TRANSITION CARE MANAGEMENT: Date of Outreach: 08/15/2023 Outreach Attempt 1: Contact Not Made Outreach Attempt 2: Contact Made Date of Discharge 08/10/2023 Some recent data might be hidden SUMMARY: -Admitted for: DKA -Pt discharged from [place] on 08/10/23. -Follow up appointment on Declines PCP will follow up as scheduled with endo. -Medication review completed. NEW OR CHANGED MEDICATIONS: metronidazole 500 mg Tablet 500 mg PO Q8 4 Days Qty: 12 MEDS HELD/DISCONTINUED: NA BRIEF HOSPITAL COURSE: DKA, resolved; history of type 1 diabetes mellitus on insulin pump, with history of diabetic gastroparesis DKA on presentation secondary to insulin blood malfunction as noted by patient versus insulin nonadherence, with enterocolitis as noted below likely contributing. BG 548, lactic acid 4.4, positive serum acetone with anion gap metabolic acidosis on admission. Placed in ICU on admission. community educator evaluated on 08/07, patient reported no needs at this time. Patient transitioned off insulin drip on evening of 08/07, unfortunately had increased blood sugars with reopening of gap that evening, required insulin drip again in civil engineer helper of 08/08. Gap closed on morning of 08/08. Patient started using her insulin pump on 08/08, had stable blood sugars for about 8 to 10 hours but then unfortunately her pump malfunctioned again. Discussed with Dr. Martinez with endocrinology and [employer] rep over the phone on 08/09, who suspected that patient's plastic tubing of catheter injection site was bending and malfunctioning. [employer] sent new catheter supplies to her home prior to discharge. Patient was discharged with short courses of Lantus and Humalog in case new supplies did not arrive in time for her to use right after arriving at home. Recommended close outpatient follow-up with her steward dishwasher. Enterocolitis, improving CT abdomen pelvis on admit showed fluid-filled mildly thickened loops of small bowel and proximal colon consistent with enterocolitis. WBC count 20 on admit, improving. Stool panel, C. difficile, lactoferrin negative. Ova and parasites pending on discharge. WBC count improved, patient appeared to have subjective improvement of abdominal pain and discomfort. Discharged on p.o. Flagyl to complete 7-day course. You may be receiving a survey about your experience. We really value your feedback. If you would fill out the survey, it would help us tremendously as we continue to improve. Kyara Luis RN August 15, 2023 11:46 [facility]12-19-2023 NoteHNO ID: [id number] Author: Kyara Luis RN Service: ? Author Type: Registered Nurse Type: Progress Notes Filed: 08/15/2023 11:57 AM Note Text: [facility]12-19-2023 History of Present illness Narrative* Kyara Luis RN - 08/15/2023 11:46 AM EST Call Summary: Call placed to Kathleen Villa for transitional care management follow-up call. Spoke with patient, introduced self, explained role, discharge instructions, medications and follow up appointments reviewed with patient. Per patient insulin pump malfunctioning and has received new supplies from [employer]. Has reached out to endocrinology and will keep scheduled appointment in August. Has picked up new medications, taking as directed, no further abdominal pain and blood sugar this am 153.v States is currently staying in retirement and working with staff to secure housing. Declining follow up calls. Encouraged to reach out to PCP or specialty provider if new or worsening symptoms. APPOINTMENTS/SERVICES Reviewed follow up appointments per discharge summary. Yes Confirmed patient has transportation to appointments: Yes Reviewed the following additional services: None MEDICATION REVIEW Confirmed patient able to obtain medications (new and/or refills): Yes Reviewed medications below in detail. Patient reports compliance with appropriate medications at this time. FOLLOW-UP Additional Concerns/ Needs: None Additional follow-up: None needed at this time Routed to PCP: No Patient identified by name and . TRANSITION CARE MANAGEMENT: Date of Outreach: 08/15/2023 Outreach Attempt 1: Contact Not Made Outreach Attempt 2: Contact Made Date of Discharge 08/10/2023 Some recent data might be hidden SUMMARY: -Admitted for: DKA -Pt discharged from [place] on 08/10/23. -Follow up appointment on Declines PCP will follow up as scheduled with ashley. -Medication review completed. NEW OR CHANGED MEDICATIONS: metronidazole 500 mg Tablet 500 mg PO Q8 4 Days Qty: 12 MEDS HELD/DISCONTINUED: NA BRIEF HOSPITAL COURSE: DKA, resolved; history of type 1 diabetes mellitus on insulin pump, with history of diabetic gastroparesis DKA on presentation secondary to insulin blood malfunction as noted by patient versus insulin nonadherence, with enterocolitis as noted below likely contributing. BG 548, lactic acid 4.4, positive serum acetone with anion gap metabolic acidosis on admission. Placed in ICU on admission. community educator evaluated on 08/07, patient reported no needs at this time. Patient transitioned off insulin drip on evening of 08/07, unfortunately had increased blood sugars with reopening of gap that evening, required insulin drip again in civil engineer helper of 08/08. Gap closed on morning of 08/08. Patient started using her insulin pump on 08/08, had stable blood sugars for about 8 to 10 hours but then unfortunately her pump malfunctioned again. Discussed with Dr. Martinez with endocrinology and [employer] rep over the phone on 08/09, who suspected that patient's plastic tubing of catheter injection site was bending and malfunctioning. [employer] sent new catheter supplies to her home prior to discharge. Patient was discharged with short courses of Lantus and Humalog in case new supplies did not arrive in time for her to use right after arriving at home. Recommended close outpatient follow-up withher steward dishwasher. Enterocolitis, improving CT abdomen pelvis on admit showed fluid-filled mildly thickened loops of small bowel and proximal colon consistent with enterocolitis. WBC count 20 on admit, improving. Stoolpanel, C. difficile, lactoferrin negative. Ova and parasites pending on discharge. WBC count improved, patient appeared to have subjective improvement of abdominal pain and discomfort. Discharged on p.o. Flagyl to complete 7-day course. You may be receiving a survey about your experience. We really value your feedback. If you would fill out the survey, it would help us tremendously as we continue to improve. Kyara Luis RN August 15, 2023 11:46 AM * Kyara Luis RN - 08/15/2023 11:45 AM EST [facility] Discharge summary Author Dangelo Encarnacion [facility] August 10, 2023 12:06pm Note Date/Time August 10, 2023 12:04pm [facility] Medical Records Department [address] [place] [id number] Instructions for Home/Discharge Instructions 08/10/23 1204 MR#: [id number] Acct: [id number] Name: KATHLEEN VILLA Rep #:[id number] : 1995 28 From: Dangelo beth DO PCP: Care Physician,No Primary Status :ADM IN Discharge Instructions Diet Discharge Diet: Carb Control Diet Activity Discharge Activity: Return to Normal Activity Weight Bearing Status: Full weight bearing Follow Up Care Test Results: Test results from this visit will be discussed in further detail at your follow- up appointment, if applicable. Pending Tests Upon Discharge: None Discharge Plan Admission Admit Date/Time: 08/07/23 00:33 Attending Provider: Dangelo Encarnacion Primary Care Provider: Care Physician,No Primary Consulting Providers: Vamsi Duvall Instructions Additional Instructions / Restrictions: Complete antibiotic course as noted below. Follow-up with your steward dishwasher when able. Follow-up with your outpatient primary care provider as able. Discharge Orders/Prescriptions Prescriptions: New metronidazole 500 mg Tablet 500 mg PO Q8 4 Days Qty: 12 0RF Continued insulin lispro [Humalog U-100 Insulin] 100 unit/mL solution See Rx Instructions .ROUTE .COMPLEX Patient Comments: use IN THE INSULIN PUMP FOR A TOTAL DAILY DOSE OF 100 UNITS Rx Instructions: 100U VIA PUMP DAILY; Referrals / Follow Up: Care Physician,No Primary [Primary Care Provider] - Disposition Disposition (needs filled in before D/C Order can be placed): Home, Self Care 08/10/23 1206<Electronically signed by Dangelo Encarnacion DO>Dangelo Encarnacion DO CC: Dr. Vamsi Duvall, ; No Primary Care Physician ~ Signed [facility] Work Phone: 1(967) 249-588812-13-2023 Progress note Author Dangelo Encarnacion [facility] August 09, 2023 5:28pm Note Date/Time August 09, 2023 5:28pm [facility] Medical Records Department [address] [place] [address] Progress Note - Hospitalist 08/09/23 1724 MR#: [id number] Acct: [id number] Name: KATHLEEN VILLA Rep #:[id number] : 1995 28 From: Dangelo beth DO PCP: Care Physician,No Primary Status :ADM IN Location: [place] [address] Reason for Visit Reason for Visit: Diagnoses Type 1 diabetes mellitus with ketoacidosis without coma (08/07/23) Type 2 diabetes mellitus with ketoacidosis without coma (08/07/23) 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 (poly)neuropathy (08/07/23) Gastroparesis (08/07/23) Noninfective gastroenteritis and colitis, unspecified (08/07/23) Nausea with vomiting, unspecified (08/07/23) Subjective Subjective Patient transferred to the PCU this morning given her medical stability. Seen at bedside in the PCU midmorning. Patient unfortunately stated that her insulinpump again malfunctioned overnight. On further discussion, patient has very wary about going home on subcutaneous insulin as she tells me she is a brittle diabetic and does not have good blood sugar control without her insulin pump. States she had nausea and abdominal pain overnight with high blood sugars which is now resolved this morning. No other acute concerns this morning. Objective Data Objective Data Vital Signs: Vital Signs Temp Pulse Resp BP Pulse Ox O2 Del Method 98.4 F 62 12 119/71 98 Room Air 08/09/23 14:32 08/09/23 14:32 08/09/23 14:32 08/09/23 14:32 08/09/23 14:32 08/09/23 14:32 Oxygen Delivery Method Room Air Weight: 80.3 kg Body Mass Index (BMI) 26.1 Intake & Output: Intake and Output for Last 24 Hours 08/07/23 08/08/23 08/09/23 23:59 23:59 23:59 Intake Total 3442.49 / 3442.49 2125.44 / 2125.44 300 / 300 Output Total 200 / 200 Balance 3242.49 / 3242.49 2125.44 / 2125.44 300 / 300 Lab / Micro Data 08/09/23 03:39 08/09/23 03:39 Labs: Laboratory Results - last 24 hr 08/08/23 17:18: POC Glucose 345 H 08/08/23 18:48: POC Glucose 341 H 08/08/23 20:31: POC Glucose 325 H 08/08/23 21:49: POC Glucose 333 H 08/08/23 21:53: Sodium 136, Potassium 4.5, Chloride 106, Carbon Dioxide 19.0 L, Anion Gap 11, BUN 10, Creatinine 0.80, Estim Creat Clear Calc 108.44, Est GFR (MDRD) Af Amer 110, Est GFR (MDRD) Non-Af 91, BUN/Creatinine Ratio 12.6, [id number] H, Calcium 8.0 L 08/08/23 23:58: POC Glucose 302 H 08/09/23 03:34: POC Glucose 272 H 08/09/23 03:39: WBC 9.9, RBC 4.00 L, Hgb 11.6 L, Hct 36.5 L, MCV 91.3, MCH 29.0,MCHC 31.8 L, RDW Std Deviation 43.4, RDW Coeff of Joyce 13.1, Plt Count 110 L, MPV11.7, Sodium 135 L, Potassium 4.4, Chloride 105, Carbon Dioxide 18.0 L, Anion Gap 12, BUN 10, Creatinine 0.79, Estim Creat Clear Calc 109.81, Est GFR (MDRD) Af Amer 111, Est GFR (MDRD) Non-Af 92, BUN/Creatinine Ratio 12.7, Glucose 311 H,Calcium 7.8 L 08/09/23 07:42: POC Glucose 311 H 08/09/23 10:59: POC Glucose 192 H 08/09/23 16:06: POC Glucose 129 H Micro: Microbiology 08/07/23 18:10 Stool Stool Lactoferrin - Final 08/07/23 18:10 Stool Enteric Bacteriology - Final 08/07/23 18:10 Stool C. difficile DNA Amplification - Final 08/07/23 03:55 Mucosa - Nasopharyngeal Respiratory Panel (PCR) - Final Physical Exam Const alert, no apparent distress and average body habitus Constitutional Narrative: Awake and alert this morning, sitting comfortably in bed, conversing normally, no acute distress. General Appearance: cooperative and comfortable HEENT normocephalic, head/scalp atraumatic, hearing grossly normal bilaterally, nasal mucous membranes and turbinates normal and moist oral mucous membranes Eyes PERRL, EOMs intact bilaterally and conjunctivae normal Neck full ROM, no lymphadenopathy and supple Lymph Lymphatic: no lymphadenopathy noted Chest inspection of chest normal Resp normal respiratory effort, normal air movement, no use of accessory muscles and clear to auscultation bilaterally Cardio regular rate, regular rhythm, no murmurs and peripheral pulses 2+ throughout GI normal to inspection, nondistended, normoactive bowel sounds, soft to palpation,non-tender and non-distended Back/Spine normal ROM Extremity normal to inspection, full ROM and no pedal edema Skin no rashes or lesions noted Neuro moves all extremities and no focal motor deficits Speech: speech normal Psych affect normal Mood & Affect: anxious Assessment & Plan Assessment/Plan (1) DKA (diabetic ketoacidoses): QUALIFIERS: Diabetes mellitus type: type 1 Diabetes mellitus complication detail: without coma Qualified Code(s): E10.10 - Type 1 diabetes mellitus with ketoacidosis without coma PLAN: Plan Patient is a 28-year-old female who presented to [facility] ED on 08/06/2023 with nausea/vomiting and abdominal pain. 1. DKA, resolved; history of type 1 diabetes mellitus on insulin pump, with history of diabetic gastroparesis DKA on presentation secondary to insulin blood malfunction as noted by patient versus insulin nonadherence, with enterocolitis as noted below likely contributing. BG 548, lactic acid 4.4, positive serum acetone with anion gap metabolic acidosis on admission. Placed in ICU on admission. Diabetes educatorevaluated on 08/07, patient reported no needs at this time. Patient transitioned off insulin drip on evening of 08/07, unfortunately had increased blood sugars with reopening of gap that evening, required insulin drip again in civil engineer helper of 08/08. Gap closed on morning of 08/08. Patient started using her insulin pump on 08/08, had stable blood sugars for about 8 to 10 hours but then unfortunately her pump malfunctioned again. ? Discussed with Dr. Martinez over the phone with endocrinology and with a [employer]rep over the phone. Suspect it is patient's plastic tubing of catheter and injection site that is pending and malfunctioning. [employer] is sending her newcatheter supplies with a temporary steel tipped catheter to use while her previous insulin sites are healing, will be at her home tomorrow. Continue subcutaneous insulin today, with plan to discharge home tomorrow morning. 2. Enterocolitis, improving CT abdomen pelvis on admit showed fluid-filled mildly thickened loops of small bowel and proximal colon consistent with enterocolitis. WBC count 20 on admit, improving. Stool panel, C. difficile, lactoferrin negative. Ova and parasites pending. ? Continue IV Flagyl for now, will likely plan to discharge patient on p.o. Flagyl for 7-day course total. Chronic medical conditions: ? Borderline personality disorder, PTSD: Stable. Not on home medications. ? Marfan syndrome, with history of aortic root repair and previous eye surgery ? History of renal calculi ? Tobacco abuse: Patient refused nicotine replacement therapy. Encouraged cessation. ? History of cannabis use, with medical marijuana card DVT prophylaxis: Lovenox CODE STATUS: Full code, verified Expected disposition: Home, tomorrow Total clinical time spent by myself addressing the patient's medical issues, reviewing all the data, and collaborating with patient's care team: 35 minutes. Charges/Coding Visit Charges Inpatient E&M: 10777 Subs Hosp L2 08/09/23 1728 <Electronically signed by Dangelo Encarnacion DO> Cosigner Signature (if applicable): CC: ~ Signed [facility] Work Phone: 1(660) 966-494312-13-2023 Progress note Author Ramya Lombardo [facility] August 08, 2023 10:31pm Note Date/Time August 08, 2023 9:19pm [facility] Medical Records Department [address] [place] [address] Progress Note - Hospitalist 08/08/232117 MR#: [id number] Acct: [id number] Name: KATHLEEN VILLA Rep #:[id number] : 1995 28 From: Ramya Lombardo MD PCP: Care Physician,No Primary Status :ADM IN Location: ICU CVICU20 3-1 Hospitalist Note BS remain in 300 range. Currently on her own insulin pump and dosing herself with her own home ISS. From report with RN it appears 6.8 u insulin administeredfor BS 325 level. She does report mild nausea currently. Will obtain BMP to be cautious. 08/08/232118 <Electronically signed by Ramya Lombardo MD> Cosigner Signature (if applicable): CC: ~ Signed ADDENDUM by Dr. Ramya Lombardo MD on 08/08/23 at 0 Addendum Will change BS checks to q4 hours as BMP without concern. 08/08/232229<Electronically signed by Ramya Lombardo MD> Cosigner Signature (if applicable): cc: ~* Signed [facility] Work Phone: 1(684) 369-455112-12-2023 Progress note Author Dangelo [facility] August 08, 2023 3:36pm Note Date/Time August 08, 2023 3:36pm [facility] Medical Records Department [address] [place] [id number] Progress Note - Hospitalist 08/08/23 1530 MR#: [id number] Acct: [id number] Name: KATHLEEN VILLA Rep #:[id number] : 1995 28 From: Dangelo beth DO PCP: Care Physician,No Primary Status :ADM IN Location: ICU CVICU20 3-1 Reason for Visit Reason for Visit: Diagnoses Type 1 diabetes mellitus with ketoacidosis without coma (08/07/23) Type 2 diabetes mellitus with ketoacidosis without coma (08/07/23) 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 (poly)neuropathy (08/07/23) Gastroparesis (08/07/23) Noninfective gastroenteritis and colitis, unspecified (08/07/23) Nausea with vomiting, unspecified (08/07/23) Subjective Subjective Patient was transitioned off the insulin drip before dinnertime yesterday evening. Unfortunately, overnight patient had elevated blood sugars and anion gap reopened, so she was placed on insulin drip from around 12 AM to 7 AM. Repeat BMP showed that the gap closed. Was transitioned off the insulin drip again around 8 AM. Patient seen at bedside this morning. Laying comfortably bed and appears more awake and alert this morning. Patient stated she was glad she went back on the insulin drip overnight, since she was starting to feel morenauseous at that time. She feels improved this morning. Patient would like to go back on her insulin pump today if able. She changed her pump site since coming to the hospital and feels that this should work fine for her. She otherwise denies any acute concerns today. Objective Data Objective Data Vital Signs: Vital Signs Temp Pulse Resp BP Pulse Ox O2 Del Method 97.5 F L 78 14 105/65 92 Room Air 08/08/23 08:00 08/08/23 10:00 08/08/23 10:00 08/08/23 10:00 08/08/23 10:00 08/08/23 10:00 Oxygen Delivery Method Room Air Weight: 82 kg Body Mass Index (BMI) 26.6 Intake & Output: Intake and Output for Last 24 Hours 08/06/23 08/07/23 08/08/23 23:59 23:59 23:59 Intake Total 1000 / 1000 3442.49 / 3442.49 1625.44 / 1625.44 Output Total 200 / 200 Balance 1000 / 1000 3242.49 / 3242.49 1625.44 / 1625.44 Lab / Micro Data 08/08/23 04:05 08/08/23 04:05 Labs: Laboratory Results - last 24 hr 08/07/23 15:55: POC Glucose 200 H 08/07/23 17:22: POC Glucose 195 H 08/07/23 21:33: POC Glucose 344 H 08/07/23 21:50: Sodium 142, Potassium 3.5, Chloride 117 H, Carbon Dioxide 16.0 L, Anion Gap 9, BUN 12, Creatinine 0.71, Estim Creat Clear Calc 122.18, Est GFR (MDRD) Af Amer 126, Est GFR (MDRD) Non-Af 104, BUN/Creatinine Ratio 17.0, Glucose 311 H, Calcium 6.4 L* 08/08/23 00:06: POC Glucose 250 H 08/08/23 01:02: POC Glucose 217 H 08/08/23 02:13: POC Glucose 186 H 08/08/23 03:14: POC Glucose 143 H 08/08/23 04:02: POC Glucose 114 H 08/08/23 04:05: WBC 17.5 H, RBC 3.55 L, Hgb 10.2 L, Hct 32.0 L, MCV 90.1, MCH 28.7, MCHC 31.9 L, RDW Std Deviation 45.2 H, RDW Coeff of Joyce 13.5, Plt Count 127 L, MPV 11.4, Sodium 141, Potassium 3.5, Chloride 114 H, Carbon Dioxide 23.0,Anion Gap 4 L, BUN 13, Creatinine 0.76, Estim Creat Clear Calc 114.14, Est GFR (MDRD) Af Amer 116, Est GFR (MDRD) Non-Af 96, BUN/Creatinine Ratio 17.2, [id number] H, Calcium 7.4 L 08/08/23 05:04: POC Glucose 94 08/08/23 06:03: POC Glucose 62 L 08/08/23 06:52: POC Glucose 78 08/08/23 09:54: POC Glucose 162 H 08/08/23 12:03: POC Glucose 135 H Micro: Microbiology 08/07/23 18:10 Stool Stool Lactoferrin - Final 08/07/23 18:10 Stool Enteric Bacteriology - Final 08/07/23 18:10 Stool C. difficile DNA Amplification - Final 08/07/23 03:55 Mucosa - Nasopharyngeal Respiratory Panel (PCR) - Final Physical Exam Const alert, no apparent distress and average body habitus Constitutional Narrative: More awake and alert this morning, laying comfortably in bed, no acute distress. General Appearance: cooperative and comfortable HEENT normocephalic, head/scalp atraumatic, hearing grossly normal bilaterally, nasal mucous membranes and turbinates normal and moist oral mucous membranes Eyes PERRL, EOMs intact bilaterally and conjunctivae normal Neck full ROM, no lymphadenopathy and supple Lymph Lymphatic: no lymphadenopathy noted Chest inspection of chest normal Resp normal respiratory effort, normal air movement, no use of accessory muscles and clear to auscultation bilaterally Cardio regular rate, regular rhythm, no murmurs and peripheral pulses 2+ throughout GI normal to inspection, nondistended, normoactive bowel sounds, soft to palpation,non-tender and non-distended Back/Spine normal ROM Extremity normal to inspection, full ROM and no pedal edema Skin no rashes or lesions noted Neuro moves all extremities and no focal motor deficits Speech: speech normal Psych Mood & Affect: anxious Assessment & Plan Assessment/Plan (1) DKA (diabetic ketoacidoses): QUALIFIERS: Diabetes mellitus type: type 1 Diabetes mellitus complication detail: without coma Qualified Code(s): E10.10 - Type 1 diabetes mellitus with ketoacidosis without coma PLAN: Plan Patient is a 28-year-old female who presented to [facility] ED on 08/06/2023 with nausea/vomiting and abdominal pain. 1. DKA, resolved; history of type 1 diabetes mellitus on insulin pump, with history of diabetic gastroparesis DKA on presentation secondary to insulin blood malfunction as noted by patient versus insulin nonadherence, with enterocolitis as noted below likely contributing. BG 548, lactic acid 4.4, positive serum acetone with anion gap metabolic acidosis on admission. Placed in ICU on admission. Diabetes educatorevaluated on 08/07, patient reported no needs at this time. Patient transitioned off insulin drip on evening of 08/07, unfortunately had increased blood sugars with reopening of gap that evening, required insulin drip again in civil engineer helper of 08/08. Gap closed on morning of 08/08. ? Discussed with patient, will allow patient to start her insulin pump today andmonitor her blood sugars closely. If sugars remain stable through tomorrow, will likely be okay for discharge home tomorrow. Patient follows with an outside steward dishwasher, recommended close follow-up appointment with her steward dishwasher on discharge. Monitor BMP tomorrow morning. 2. Enterocolitis, improving CT abdomen pelvis on admit showed fluid-filled mildly thickened loops of small bowel and proximal colon consistent with enterocolitis. WBC count 20 on admit, improving. Stool panel, C. difficile, lactoferrin negative. Ova and parasites pending. ? Continue IV Flagyl for now, will likely plan to discharge patient on p.o. Flagyl for 7-day course total. Chronic medical conditions: ? Borderline personality disorder, PTSD: Stable. Not on home medications. ? Marfan syndrome, with history of aortic root repair and previous eye surgery ? History of renal calculi ? Tobacco abuse: Patient refused nicotine replacement therapy. Encouraged cessation. ? History of cannabis use, with medical marijuana card DVT prophylaxis: Lovenox CODE STATUS: Full code, verified Expected disposition: Home, 1 to 2 days Total clinical time spent by myself addressing the patient's medical issues, reviewing all the data, and collaborating with patient's care team: 35 minutes. Charges/Coding Visit Charges Inpatient E&M: 64222 Subs Hosp L2 08/08/23 1536 <Electronically signed by Dangelo Encarnacion DO> Cosigner Signature (if applicable): CC: ~ Signed [facility] Work Phone: 1(412) 467-814312-11-2023 Progress note Author [facility] August 07, 2023 5:01pm Note Date/Time August 07, 2023 3:12pm [facility] Medical Records Department [address] [place] [address] Progress Note - Hospitalist 08/07/23 1512 MR#: [id number] Acct: [id number] Name: KATHLEEN VILLA Rep #:[id number] : 1995 28 From: Dangelo beth DO PCP: Care Physician,No Primary Status :ADM IN Location: ICU CVICU20 3-1 Reason for Visit Reason for Visit: Diagnoses Type 1 diabetes mellitus with ketoacidosis without coma (08/07/23) Type 2 diabetes mellitus with ketoacidosis without coma (08/07/23) 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 (poly)neuropathy (08/07/23) Gastroparesis (08/07/23) Noninfective gastroenteritis and colitis, unspecified (08/07/23) Nausea with vomiting, unspecified (08/07/23) Subjective Subjective Patient admitted overnight for DKA. Seen at bedside this morning in the ICU. Patient was laying in bed comfortably, no acute distress. Patient appeared veryfatigued, was falling asleep while answering most questions. Stated that she continued to feel somewhat nauseous this morning but improved from yesterday evening. She otherwise denies any acute pain or discomfort. Denies any fevers or chills. No other acute concerns. Objective Data Objective Data Vital Signs: Vital Signs Temp Pulse Resp BP Pulse Ox O2 Del Method 97.4 F L 101 H 21 H 85/39 L 97 Room Air 08/07/23 12:00 12/11/23 14:00 08/07/23 14:00 08/07/23 14:00 08/07/23 14:00 08/07/23 14:00 Oxygen Delivery Method Room Air Weight: 79.9 kg Body Mass Index (BMI) 25.9 Intake & Output: Intake and Output for Last 24 Hours 08/05/23 08/06/23 08/07/23 23:59 23:59 23:59 Intake Total 1000 / 1000 2235.44 / 2235.44 Balance 1000 / 1000 2235.44 / 2235.44 Lab / Micro Data 08/06/23 22:55 08/07/23 14:45 Labs: Laboratory Results - last 24 hr 08/06/23 00:18: Urine Color Yellow, Urine Clarity Clear, Urine pH 5.0, Ur Specific [place] 1.015, Urine Protein Negative, Urine Glucose (UA) 1000 H, UrineKetones 150 A*, Urine Occult Blood 10 H, Urine Nitrite Negative, Urine BilirubinNegative, Urine Urobilinogen Normal, Ur Leukocyte Esterase Negative, Urine RBC 0SEEN, Urine WBC 0 SEEN, Ur Squamous Epith Cells 0-5 SEEN, Urine Bacteria 0 SEEN,Urine Mucus 0 SEEN 08/06/23 22:55: WBC 20.3 H, RBC 4.35, Hgb 12.6, Hct 40.5, MCV 93.1, MCH 29.0, MCHC 31.1 L D, RDW Std Deviation 45.1 H, RDW Coeff of Joyce 13.2, Plt Count 140 L,MPV 13.8 H, Immature Gran % (Auto) 2.700 H, Neut % (Auto) 92.7 H, Lymph % (Auto)2.1 L, Mclean % (Auto) 2.0, Eos % (Auto) 0.0, Baso % (Auto) 0.5, Absolute Neuts (auto) 18.8 H, Absolute Lymphs (auto) 0.42 L, Nucleated RBC % 0, Differential Comment SCANNED, Sodium 132 L, Potassium 4.8, Chloride 101, Carbon Dioxide 14.0 L, Anion Gap 17 H, BUN 19 H, Creatinine 1.18 H, Estim Creat Clear Calc 73.52, Est GFR (MDRD) Af Amer 70, Est GFR (MDRD) Non-Af 58 L, BUN/Creatinine Ratio 16.1, Glucose 548 H*, Lactic Acid 4.4 H*, Calcium 9.1, Magnesium 2.0, Acetone Level SMALL H 08/07/23 01:45: Sodium 136, Potassium 4.2, Chloride 107, Carbon Dioxide 12.0 L, Anion Gap 17 H, BUN 20 H, Creatinine 1.25 H, Estim Creat Clear Calc 69.40, Est GFR (MDRD) Af Amer 65, Est GFR (MDRD) Non-Af 54 L, BUN/Creatinine Ratio 16.0, Glucose 425 H, Hemoglobin A1c 7.0 H, Calcium 7.6 L, Magnesium 1.8 08/07/23 01:46: POC Glucose 413 H 08/07/23 03:08: POC Glucose 362 H 08/07/23 04:05: POC Glucose 343 H 08/07/23 05:15: POC Glucose 362 H 08/07/23 05:55: Sodium 137, Potassium 4.1, Chloride 108 H, Carbon Dioxide 14.0 L, Anion Gap 15, BUN 20 H, Creatinine 1.12 H, Estim Creat Clear Calc 77.45, Est GFR (MDRD) Af Amer 74, Est GFR (MDRD) Non-Af 61, BUN/Creatinine Ratio 17.9, Glucose 374 H, Lactic Acid 2.2 H*, Calcium 7.8 L, Acetone Level MODERATE H 08/07/23 06:04: POC Glucose 333 H 08/07/23 07:00: POC Glucose 331 H 08/07/23 08:07: POC Glucose 336 H 08/07/23 09:11: POC Glucose 252 H 08/07/23 10:11: POC Glucose 234 H 08/07/23 10:15: Sodium 139, Potassium 4.0, Chloride 113 H, Carbon Dioxide 14.0 L, Anion Gap 12, BUN 18, Creatinine 0.90, Estim Creat Clear Calc 96.39, Est GFR (MDRD) Af Amer 96, Est GFR (MDRD) Non-Af 79, BUN/Creatinine Ratio 20.1 H, Glucose 263 H, Calcium 7.3 L 08/07/23 11:19: POC Glucose 266 H 08/07/23 12:09: POC Glucose 269 H 08/07/23 13:17: POC Glucose 251 H 08/07/23 14:40: POC Glucose 201 H 08/07/23 14:45: Sodium 139, Potassium 3.8, Chloride 114 H, Carbon Dioxide 22.0, Anion Gap 3 L, BUN 16, Creatinine 0.79, Estim Creat Clear Calc 109.81, Est GFR (MDRD) Af Amer 110, Est GFR (MDRD) Non-Af 91, BUN/Creatinine Ratio 20.2 H, Glucose 232 H, Calcium 7.5 L Micro: Microbiology 08/07/23 03:55 Mucosa - Nasopharyngeal Respiratory Panel (PCR) - Final ABG Data ABG results: ABG 08/06/23 08/07/23 23:04 06:05 Specimen Type ISABELLE ISABELLE Sample Site Not entered Not entered O2 % 21.0 VBG pH 7.34 7.24 L VBG pO2 58 H 52 H VBG HCO3 12 L 12 L VBG Total CO2 13 L 13 L VBG O2 Sat (Calc) 89 H 81 H VBG Base Excess -14 L -16 L POC Mix VBG pCO2 Pt Tmp 22.9 L 28.0 L O2 Delivery Device Room Air Not entered Physical Exam Const alert, no apparent distress and average body habitus Constitutional Narrative: Alert but fatigued appearing, laying comfortably in bed, no acute distress. General Appearance: cooperative and comfortable HEENT normocephalic, head/scalp atraumatic, hearing grossly normal bilaterally, nasal mucous membranes and turbinates normal and moist oral mucous membranes Eyes PERRL, EOMs intact bilaterally and conjunctivae normal Neck full ROM, no lymphadenopathy and supple Lymph Lymphatic: no lymphadenopathy noted Chest inspection of chest normal Resp normal respiratory effort, normal air movement, no use of accessory muscles and clear to auscultation bilaterally Cardio regular rate, regular rhythm, no murmurs and peripheral pulses 2+ throughout GI normal to inspection, nondistended, normoactive bowel sounds, soft to palpation,non-tender and non-distended Back/Spine normal ROM Extremity normal to inspection, full ROM and no pedal edema Skin no rashes or lesions noted Neuro moves all extremities and no focal motor deficits Speech: speech normal Psych Mood & Affect: anxious Assessment & Plan Assessment/Plan (1) DKA (diabetic ketoacidoses): QUALIFIERS: Diabetes mellitus complication detail: without coma Diabetes mellitus type: type 1 Qualified Code(s): E10.10 - Type 1 diabetes mellitus with ketoacidosis without coma PLAN: Plan Patient is a 28-year-old female who presented to [facility] ED on 08/06/2023 with nausea/vomiting and abdominal pain. 1. DKA, resolved; history of type 1 diabetes mellitus on insulin pump, with history of diabetic gastroparesis DKA on presentation secondary to insulin blood malfunction as noted by patient versus insulin nonadherence, with enterocolitis as noted below likely contributing. BG 548, lactic acid 4.4, positive serum acetone with anion gap metabolic acidosis on admission. Placed in ICU on admission. Diabetes educatorevaluated on 08/07, patient reported no needs at this time. ? Anion gap closed this afternoon, bicarb 22, patient with minimal nausea/vomiting and wanting to eat. Transitioned off insulin drip to Lantus 15 units at night, Humalog 5 units 3 times daily AC plus high?medium sliding scale,will adjust as needed. Will give one-time dose of NPH 7 units this afternoon totransition to long-acting insulin this evening. Repeat BMP tonight and tomorrowmorning. Patient will likely need to be discharged on Lantus plus Humalog injectable insulin to bridge her to her next endocrinology appointment, where insulin pump can be further inspected. 2. Enterocolitis CT abdomen pelvis on admit showed fluid-filled mildly thickened loops of small bowel and proximal colon consistent with enterocolitis. WBC count 20 on admit. ? Continue IV Flagyl for now. Stool studies pending. Trend daily CBC. Chronic medical conditions: ? Borderline personality disorder, PTSD: Stable. Not on home medications. ? Marfan syndrome, with history of aortic root repair and previous eye surgery ? History of renal calculi ? Tobacco abuse: Patient refused nicotine replacement therapy. Encouraged cessation. ? History of cannabis use, with medical marijuana card DVT prophylaxis: Lovenox CODE STATUS: Full code, verified Expected disposition: Home, 1 to 2 days Total clinical time spent by myself addressing the patient's medical issues, reviewing all the data, and collaborating with patient's care team: 35 minutes. Charges/Coding Visit Charges Inpatient E&M: 77324 Subs Hosp L2 08/07/23 1701 <Electronically signed by Dangelo Encarnacion DO> Cosigner Signature (if applicable): CC: ~ Signed [facility] Work Phone: 1(135) 215-573212-11-2023 History and physical note Author Vamsi Lewis [facility] August 07, 2023 5:40am Note Date/Time August 07, 2023 12:08am [facility] Medical Records Department [address] [place] [address] H&P Exam - Hospitalist 08/07/23 0006 MR#: [id number] Acct: [id number] Name: KATHLEEN VILLA Rep #:[id number] : 1995 28 From: Vamsi Roldan DO PCP: Care Physician,No Primary Status :ADM IN Location: ICU CVICU20 3-1 HPI - General General Date of Admission: 08/07/23 Date of Service: 08/07/23 Chief Complaint: Nausea, Vomiting, Abdominal Pain and Hyperglycemia. HPI Narrative KATHLEEN VILLA, is a 28 F with a past medical history of DM-1; s/p insulin pump - uncontrolled with Hyperglycemia with several bouts of DKA, Diabetic Gastroparesis, Marfan's Syndrome; with history of aortic root repair and previous eye surgery, history of Renal Calculi, Borderline Personality Disorder,PTSD, Tobacco Abuse and history Cannabis Abuse (with medical marijuana card) whopresents to [facility] ER complaining of nausea, vomiting, abdominal pain and hyperglycemia. Ms. Villa reports her symptoms began approximately 2 days prior to admission with a gradual onset of nausea, vomitingwith bilious emesis and abdominal pain. She then came to the ER earlier on August 06, 2023, and had a CT scan consistent with enterocolitis and hypoglycemia of 69 mg/dL present on admission complicated by leukocytosis of 21.9 present on admission she was then treated with IV fluids and her mild hypokalemia of 3.3 mmol/L present on admission was treated with good result and she was subsequently discharged home. She describes the abdominal pain as cramping, moderate to severe, waxing and waning and generalized with nothing makingthe pain better or worse. She denies associated fever, chills or constipation but she does admit to diarrhea. She admits her symptoms are similar to her previous bouts of DKA - but this episode is more severe. Then later in the evening on August 06, 2023 she returned stating that she did not think her insulin pump was working with severe hyperglycemia of 548 mg/dL with a lactic acidosis of 4.4 mmol/L present on admission and positive serum acetone consistent with diabetic ketoacidosis complicated by leukocytosis of 20.3 present on admission plus clinical evidence of intractable nausea and vomiting with nonbloody diarrhea and she was then admitted to the ICU for ongoing care under the DKA protocol for a stay that is expected to be greater than 48 hours. [facility] Medical History Anxiety Borderline personality disorder Depression Gastroparesis History of tachycardia Intractable vomiting Kidney disease Kidney stones Marfan syndrome PTSD (post-traumatic stress disorder) Smoker Substance abuse Type 1 diabetes Home Medications insulin lispro 100 unit/mL subcutaneous solution (Humalog U-100 Insulin) See Rx Instructions .Route .COMPLEX 04/27/23 [History Last Taken 04/27/23] Allergy/AdvReac Type Severity Reaction Status Date / Time adhesive tape Allergy Intermediate Rash Verified 08/06/23 21:38 cephalexin [From Keflex] Allergy Intermediate Other Verified 08/06/23 21:38 morphine Allergy Intermediate Rash Verified 08/06/23 21:38 oxycodone [From Percocet] Allergy Intermediate Rash Verified 08/06/23 21:38 ondansetron AdvReac I BLACK Verified 08/06/23 21:38 OUT AND LOSE CONTROL OF MY BLADDER Family History no significant family his Surgical History H/O aortic root repair History of loop recorder Hx of appendectomy Hx of eye surgery Social History Smoking Status: Current some day smoker tobacco type: cigarettes and e- cigarettes substance use type: marijuana ROS ROS Narrative Review of systems: Constitutional: Patient denies fever or chills. Eyes: Patient denies visual changes. ENT: Patient denies runny nose or sore throat. Cardiovascular: Patient denies chest pain or palpitations. Respiratory: Patient denies shortness of breath or cough. Gastrointestinal: Patient admits to abdominal pain nausea and bilious emesis with nonbloody diarrhea. Genitourinary patient denies dysuria, hematuria or urinary frequency. Musculoskeletal: Patient admits to myalgias. Integumentary: Patient denies rash. Neurologic: Patient admits to generalized weakness but denies headache or other focal neurologic deficits. Hematologic: Patient denies easy bleeding or easy bruisability. Allergic: Patient denies lip swelling, tongue swelling or urticaria. Psychiatric: Patient admits to depression and anxiety but denies suicidal ideation. Endocrinologic: Patient admits to polyuria and polydipsia and she claims her insulin pump is not functioning appropriately. 14 point review of systems otherwise negative except for positives noted above in HPI. Vital Signs Vital Signs Vital Signs: 08/06/23 21:33 Temperature 97.8 F Temperature Source Oral Pulse Rate 82 Respiratory Rate 16 Blood Pressure 138/97 H Blood Pressure Mean 110 Pulse Ox 100 Oxygen Delivery Method Room Air Weight Weight: 175 lb 14.862 oz Body Mass Index (BMI) 25.9 Physical Exam Const alert, oriented x3, no apparent distress and average body habitus General Appearance: cooperative HEENT normocephalic, head/scalp atraumatic, hearing grossly normal bilaterally and moist oral mucous membranes HEENT Narrative: Oropharynx dry. Eyes PERRL and EOMs intact bilaterally Neck no lymphadenopathy and supple Resp normal respiratory effort, no retractions, no use of accessory muscles and clearto auscultation bilaterally Cardio regular rate and regular rhythm GI normal to inspection, nondistended, normoactive bowel sounds, soft to palpation and non-distended GI Narrative: Mild diffuse pain with palpation without voluntary guarding or rigidity. Extremity normal to inspection and full ROM Skin Skin Narrative: Patient has no evidence of rash at this time. Neuro oriented x3, CN's II-XII intact bilaterally, moves all extremities and no focal motor deficits Sensorium / Orientation: awake, alert, oriented to person, oriented to place andoriented to time Speech: speech normal Motor Exam: strength 5/5 throughout Psych Mood & Affect: anxious Results Medical Records Data Attestation: I reviewed the patient's medical records Lab / Micro Data Attestation: I reviewed the patient's lab results. 08/06/23 22:55 08/07/23 01:45 Labs: Laboratory Results - last 24 hr 08/06/23 22:55: WBC 20.3 H, RBC 4.35, Hgb 12.6, Hct 40.5, MCV 93.1, MCH 29.0, MCHC 31.1 L D, RDW Std Deviation 45.1 H, RDW Coeff of Joyce 13.2, Plt Count 140 L,MPV 13.8 H, Immature Gran % (Auto) 2.700 H, Neut % (Auto) 92.7 H, Lymph % (Auto)2.1 L, Mclean % (Auto) 2.0, Eos % (Auto) 0.0, Baso % (Auto) 0.5, Absolute Neuts (auto) 18.8 H, Absolute Lymphs (auto) 0.42 L, Nucleated RBC % 0, Sodium 132 L, Potassium 4.8, Chloride 101, Carbon Dioxide 14.0 L, Anion Gap 17 H, BUN 19 H, Creatinine 1.18 H, Estim Creat Clear Calc 73.52, Est GFR (MDRD) Af Amer 70, Est GFR (MDRD) Non-Af 58 L, BUN/Creatinine Ratio 16.1, Glucose 548 H*, Lactic Acid 4.4 H*, Calcium 9.1, Magnesium 2.0, Acetone Level SMALL H ABG Data ABG results: ABG 08/06/23 23:04 Specimen Type ISABELLE Sample Site Not entered VBG pH 7.34 VBG pO2 58 H VBG HCO3 12 L VBG Total CO2 13 L VBG O2 Sat (Calc) 89 H VBG Base Excess -14 L POC Mix VBG pCO2 Pt Tmp 22.9 L O2 Delivery Device Room Air Attestation: I personally reviewed and interpreted this ABG as follows: Interpretation: Metabolic acidosis consistent with DKA. Assessment & Plan Assessment/Plan (1) DKA (diabetic ketoacidoses): QUALIFIERS: Diabetes mellitus complication detail: without coma Diabetes mellitus type: type 1 Qualified Code(s): E10.10 - Type 1 diabetes mellitus with ketoacidosis without coma (2) Diabetic gastroparesis: (3) Enterocolitis: (4) Intractable nausea and vomiting: PLAN: Plan 1. Diabetic ketoacidosis; with hyperglycemia of 548 mg/dL and lactic acidosis of 4.4 mmol/L present on admission plus positive serum acetone with alleged insulin pump malfunction - Admit to ICU for treatment under DKA protocol. Continue IV insulin and vigorously volume resuscitate. Recheck serum ketones inthe a.m. to objectively evaluate for potential improvement with treatment. Alsorecheck VBG in the a.m. to follow trend of response to therapy. Finally, we will consult primary special educator to see this patient in the a.m. on rounds for further teaching about her insulin pump to help prevent serial readmission with help appreciated in advance. 2. Intractable nausea and vomiting in the setting of known diabetic gastroparesis complicating #1 - Give IV Zofran as needed and monitor for improvement. 3. Enterocolitis evident on CT done earlier today with leukocytosis of 20.3 present on admission likely precipitating #1 & #2 - Place on enteric precautions. Check stool studies to evaluate for potential underlying infectious agent, including: C. difficile colitis toxin AMB PCR, fecal ova and parasites, fecal leukocytes and Hemoccult. Start empiric IV Flagyl until stool studies returned prevent further clinical deterioration in the interim. 4. Borderline Personality Disorder and PTSD - Stable. Continue home regimen asprevious plus give prn IM Vistaril for breakthrough agitation. 5. Marfan's Syndrome; with history of aortic root repair and previous eye surgery - Noted. 6. History of Renal Calculi - Stable with no evidence of recurrence at this time. 7. Tobacco Abuse - Tobacco Cessation was strongly encouraged with Nicotine patch offered to control cravings. 8. History Cannabis Abuse (with medical marijuana card) - Noted. 9. DVT prophylaxis - Lovenox 40 mg sq daily plus SCD's. Total time: Approximately 75 minutes. Charges/Coding Visit Charges Inpatient E&M: 96756 Init Hosp L3 08/07/23 0540 <Electronically signed by Vamsi Duvall DO> Cosigner Signature (if applicable): CC: Dr. Vamsi Duvall DO; No Primary Care Physician~ Signed [facility] Work Phone: 1(259) 254-125012-11-2023 Discharge summary Author Lul Singh [facility] August 07, 2023 12:37am Note Date/Time August 06, 2023 10:54pm [facility] Medical Records Department [address] [place] [address] Emergency Department Summary 08/06/23 MR#: [id number] Acct: [id number] Name: KATHLEEN VILLA Rep #:[id number] : 1995 28 From: Lul Singh DO PCP: Care Physician,No Primary Status :ADM IN Location: ICU CVICU20 3-1 HPI History of Present Illness Chief Complaint: Nausea/Vomiting Informant: patient Narrative Narrative: Patient is a 28-year-old female with past medical history of type 1 diabetes anddiabetic gastroparesis. She was seen earlier today secondary to nausea vomitingabdominal pain. At that time she was worked up with basic blood work and CT scan and found to have enterocolitis consistent with her symptoms but not in DKAand after hydration and treatment she was discharged home. She states that since returning home she has noted that her blood sugar is elevated and she doesnot believe her insulin pump was functioning properly. Secondary to the increased glucose she was concerned as she has been in DKA in the past and therefore comes in for evaluation [facility] Medical History Anxiety Borderline personality disorder Depression Gastroparesis History of tachycardia Intractable vomiting Kidney disease Kidney stones Marfan syndrome PTSD (post-traumatic stress disorder) Smoker Substance abuse Type 1 diabetes Home Medications insulin lispro 100 unit/mL subcutaneous solution (Humalog U-100 Insulin) See Rx Instructions .Route .COMPLEX 04/27/23 [History Last Taken 04/27/23] Allergy/AdvReac Type Severity Reaction Status Date / Time adhesive tape Allergy Intermediate Rash Verified 08/06/23 21:38 cephalexin [From Keflex] Allergy Intermediate Other Verified 08/06/23 21:38 morphine Allergy Intermediate Rash Verified 08/06/23 21:38 oxycodone [From Percocet] Allergy Intermediate Rash Verified 08/06/23 21:38 ondansetron AdvReac I BLACK Verified 08/06/23 21:38 OUT AND LOSE CONTROL OF MY BLADDER Family History no significant family his Surgical History H/O aortic root repair History of loop recorder Hx of appendectomy Hx of eye surgery Social History Smoking Status: Current some day smoker tobacco type: cigarettes and e- cigarettes substance use type: marijuana ROS ROS ED Constitutional Constitutional ED: Denies chills or fever(s) ENT ENT ED: Denies rhinorrhea or sore throat Cardiovascular Cardiovascular: Denies chest pain Respiratory/Chest Respiratory/Chest: Denies cough or dyspnea Gastrointestinal Gastrointestinal: Reports abdominal pain, diarrhea, nausea and vomiting Genitourinary Genitourinary ED: Denies dysuria Musculoskeletal Musculoskeletal: Reports myalgias Integumentary Denies rash Neurologic Neurologic: Reports weakness; Denies headache(s) Hematologic/Lymphatic Hematologic/Lymphatic: Denies easy bleeding or easy bruising EXAM Physical Exam Const Vital Signs: 08/06/23 21:33 Temperature 97.8 F Temperature Source Oral Pulse Rate 82 Respiratory Rate 16 Blood Pressure 138/97 H Blood Pressure Mean 110 Pulse Ox 100 Oxygen Delivery Method Room Air Positive well nourished and well developed General Appearance ED: well developed; Negative for pallor HEENT HEENT Narrative: Mucous membranes are slightly dry and tacky No airway edema or compromise No tongue or lip swelling noted No secondary changes in the posterior pharynx to suggest infection Eyes PERRL and EOMs intact bilaterally General Eye ED: Negative for scleral icterus Neck supple Neck Narrative: No nuchal rigidity or meningeal signs noted Resp normal respiratory effort and clear to auscultation bilaterally Cardio regular rate and regular rhythm Rate: other Other Details: Heart is regular rate and rhythm without murmurs rubsor gallops Radial and carotid pulses are equal and symmetric GI non-distended GI Narrative: Abdomen is soft and nondistended with hyperactive bowel sounds. There is mild diffuse pain on palpation without voluntary guarding or rigidity. No pulsatile mass or fluid wave Auscultation: hyperactive bowel sounds Palpation: soft Extremity normal to inspection Neuro oriented x3, CN's II-XII intact bilaterally and no sensory deficits noted Sensorium / Orientation: alert Motor Exam: strength 5/5 throughout Psych mental status grossly normal Skin no rashes or lesions noted and skin turgor normal General Skin Exam: Negative for jaundice or pallor MDM MDM MDM Narrative Medical decision making narrative: Patient presented to the ER and reported persistent abdominal pain with bouts ofnausea and vomiting but now reported that her blood sugars were elevated and believe her insulin pump was malfunctioning. There is concern for acute kidney injury versus electrolyte derangement versus dehydration versus diabetic ketoacidosis and secondary to this I did elect to repeat basic laboratory studies. Patient's white count was elevated at 20 but this is similar nature toearlier in the day. However her sugar is now elevated at 550 her lactic acid iselevated her anion gap is elevated her serum bicarb is decreased and her acetonelevel was small going with mild to moderate DKA. Based on this she was given 2 L of fluid and based on the DKA she will need admitted to the ICU for insulin drip and continued insulin and fluid resuscitation. Therefore I did discuss thecase with the hospitalist who does agree to accept the patient at this time. Patient will be admitted to their service for further care. As the white count has remained stable and she is afebrile and she had a normal CT scan earlier in the day I do not feel there is need for repeat imaging studies. History & Record Review Discussion w/independent historian: Patient Lab Data Attestation: I reviewed the patient's lab results. Labs: Laboratory Results - last 24 hr 08/06/23 22:55 WBC 20.3 H RBC 4.35 Hgb 12.6 Hct 40.5 MCV 93.1 MCH 29.0 MCHC 31.1 L D RDW Std Deviation 45.1 H RDW Coeff of Joyce 13.2 Plt Count 140 L MPV 13.8 H Immature Gran % (Auto) 2.700 H Neut % (Auto) 92.7 H Lymph % (Auto) 2.1 L Mclean % (Auto) 2.0 Eos % (Auto) 0.0 Baso % (Auto) 0.5 Absolute Neuts (auto) 18.8 H Absolute Lymphs (auto) 0.42 L Nucleated RBC % 0 Sodium 132 L Potassium 4.8 Chloride 101 Carbon Dioxide 14.0 L Anion Gap 17 H BUN 19 H Creatinine 1.18 H Estim Creat Clear Calc 73.52 Est GFR (MDRD) Af Amer 70 Est GFR (MDRD) Non-Af 58 L BUN/Creatinine Ratio 16.1 Glucose 548 H* Lactic Acid 4.4 H* Calcium 9.1 Magnesium 2.0 Acetone Level SMALL H ABG Data ABG results: ABG 08/06/23 23:04 Specimen Type ISABELLE Sample Site Not entered VBG pH 7.34 VBG pO2 58 H VBG HCO3 12 L VBG Total CO2 13 L VBG O2 Sat (Calc) 89 H VBG Base Excess -14 L POC Mix VBG pCO2 Pt Tmp 22.9 L O2 Delivery Device Room Air Management Discussion w/another healthcare provider: Hospitalist Critical Care Time Critical Care Time: Yes Critical care time (excluding procedures): Discussing w/Patient &/or Family/CareGiver and - (Critical care time of of 33 minutes) Discharge Plan Triage Chief Complaint: Nausea/Vomiting ED Provider: Lul Singh Dx/Rx/DC Orders Clinical Impression: DKA (diabetic ketoacidoses), Type 1 diabetes, Nausea & vomiting, Diabetic gastroparesis Primary Care Provider: Care Physician,No Primary Disposition Disposition: Acute Care Hospital [facility] What to do if you have Problems For any increased pain, shortness of breath, bleeding, nausea or vomiting, chestpain, or any unexpected problems, contact your Primary Care Provider. Call [facility] ([phone]) or report to the closest Emergency Room. Call 911 if necessary. 08/07/23 0037 <Electronically signed by Lul Singh DO> Cosigner Signature (if applicable): CC: No Primary Care Physician ~ Signed [facility] Work Phone: 1([phone]) 409-295912-11-2023 Discharge summary Author Lul Singh [facility] August 07, 2023 12:37am Note Date/Time August 06, 2023 10:54pm [facility] Medical Records Department [address] [place] [address] Emergency Department Summary 08/06/23 MR#: [id number] Acct: [id number] Name: KATHLEEN VILLA Rep #:[id number] : 1995 28 From: Lul Singh DO PCP: Care Physician,No Primary Status :ADM IN Location: ICU CVICU20 3-1 HPI History of Present Illness Chief Complaint: Nausea/Vomiting Informant: patient Narrative Narrative: Patient is a 28-year-old female with past medical history of type 1 diabetes anddiabetic gastroparesis. She was seen earlier today secondary to nausea vomitingabdominal pain. At that time she was worked up with basic blood work and CT scan and found to have enterocolitis consistent with her symptoms but not in DKAand after hydration and treatment she was discharged home. She states that since returning home she has noted that her blood sugar is elevated and she doesnot believe her insulin pump was functioning properly. Secondary to the increased glucose she was concerned as she has been in DKA in the past and therefore comes in for evaluation [facility] Medical History Anxiety Borderline personality disorder Depression Gastroparesis History of tachycardia Intractable vomiting Kidney disease Kidney stones Marfan syndrome PTSD (post-traumatic stress disorder) Smoker Substance abuse Type 1 diabetes Home Medications insulin lispro 100 unit/mL subcutaneous solution (Humalog U-100 Insulin) See Rx Instructions .Route .COMPLEX 04/27/23 [History Last Taken 04/27/23] Allergy/AdvReac Type Severity Reaction Status Date / Time adhesive tape Allergy Intermediate Rash Verified 08/06/23 21:38 cephalexin [From Keflex] Allergy Intermediate Other Verified 08/06/23 21:38 morphine Allergy Intermediate Rash Verified 08/06/23 21:38 oxycodone [From Percocet] Allergy Intermediate Rash Verified 08/06/23 21:38 ondansetron AdvReac I BLACK Verified 08/06/23 21:38 OUT AND LOSE CONTROL OF MY BLADDER Family History no significant family his Surgical History H/O aortic root repair History of loop recorder Hx of appendectomy Hx of eye surgery Social History Smoking Status: Current some day smoker tobacco type: cigarettes and e- cigarettes substance use type: marijuana ROS ROS ED Constitutional Constitutional ED: Denies chills or fever(s) ENT ENT ED: Denies rhinorrhea or sore throat Cardiovascular Cardiovascular: Denies chest pain Respiratory/Chest Respiratory/Chest: Denies cough or dyspnea Gastrointestinal Gastrointestinal: Reports abdominal pain, diarrhea, nausea and vomiting Genitourinary Genitourinary ED: Denies dysuria Musculoskeletal Musculoskeletal: Reports myalgias Integumentary Denies rash Neurologic Neurologic: Reports weakness; Denies headache(s) Hematologic/Lymphatic Hematologic/Lymphatic: Denies easy bleeding or easy bruising EXAM Physical Exam Const Vital Signs: 08/06/23 21:33 Temperature 97.8 F Temperature Source Oral Pulse Rate 82 Respiratory Rate 16 Blood Pressure 138/97 H Blood Pressure Mean 110 Pulse Ox 100 Oxygen Delivery Method Room Air Positive well nourished and well developed General Appearance ED: well developed; Negative for pallor HEENT HEENT Narrative: Mucous membranes are slightly dry and tacky No airway edema or compromise No tongue or lip swelling noted No secondary changes in the posterior pharynx to suggest infection Eyes PERRL and EOMs intact bilaterally General Eye ED: Negative for scleral icterus Neck supple Neck Narrative: No nuchal rigidity or meningeal signs noted Resp normal respiratory effort and clear to auscultation bilaterally Cardio regular rate and regular rhythm Rate: other Other Details: Heart is regular rate and rhythm without murmurs rubsor gallops Radial and carotid pulses are equal and symmetric GI non-distended GI Narrative: Abdomen is soft and nondistended with hyperactive bowel sounds. There is mild diffuse pain on palpation without voluntary guarding or rigidity. No pulsatile mass or fluid wave Auscultation: hyperactive bowel sounds Palpation: soft Extremity normal to inspection Neuro oriented x3, CN's II-XII intact bilaterally and no sensory deficits noted Sensorium / Orientation: alert Motor Exam: strength 5/5 throughout Psych mental status grossly normal Skin no rashes or lesions noted and skin turgor normal General Skin Exam: Negative for jaundice or pallor MDM MDM MDM Narrative Medical decision making narrative: Patient presented to the ER and reported persistent abdominal pain with bouts ofnausea and vomiting but now reported that her blood sugars were elevated and believe her insulin pump was malfunctioning. There is concern for acute kidney injury versus electrolyte derangement versus dehydration versus diabetic ketoacidosis and secondary to this I did elect to repeat basic laboratory studies. Patient's white count was elevated at 20 but this is similar nature toearlier in the day. However her sugar is now elevated at 550 her lactic acid iselevated her anion gap is elevated her serum bicarb is decreased and her acetonelevel was small going with mild to moderate DKA. Based on this she was given 2 L of fluid and based on the DKA she will need admitted to the ICU for insulin drip and continued insulin and fluid resuscitation. Therefore I did discuss thecase with the hospitalist who does agree to accept the patient at this time. Patient will be admitted to their service for further care. As the white count has remained stable and she is afebrile and she had a normal CT scan earlier in the day I do not feel there is need for repeat imaging studies. History & Record Review Discussion w/independent historian: Patient Lab Data Attestation: I reviewed the patient's lab results. Labs: Laboratory Results - last 24 hr 08/06/23 22:55 WBC 20.3 H RBC 4.35 Hgb 12.6 Hct 40.5 MCV 93.1 MCH 29.0 MCHC 31.1 L D RDW Std Deviation 45.1 H RDW Coeff of Joyce 13.2 Plt Count 140 L MPV 13.8 H Immature Gran % (Auto) 2.700 H Neut % (Auto) 92.7 H Lymph % (Auto) 2.1 L Mclean % (Auto) 2.0 Eos % (Auto) 0.0 Baso % (Auto) 0.5 Absolute Neuts (auto) 18.8 H Absolute Lymphs (auto) 0.42 L Nucleated RBC % 0 Sodium 132 L Potassium 4.8 Chloride 101 Carbon Dioxide 14.0 L Anion Gap 17 H BUN 19 H Creatinine 1.18 H Estim Creat Clear Calc 73.52 Est GFR (MDRD) Af Amer 70 Est GFR (MDRD) Non-Af 58 L BUN/Creatinine Ratio 16.1 Glucose 548 H* Lactic Acid 4.4 H* Calcium 9.1 Magnesium 2.0 Acetone Level SMALL H ABG Data ABG results: ABG 08/06/23 23:04 Specimen Type ISABELLE Sample Site Not entered VBG pH 7.34 VBG pO2 58 H VBG HCO3 12 L VBG Total CO2 13 L VBG O2 Sat (Calc) 89 H VBG Base Excess -14 L POC Mix VBG pCO2 Pt Tmp 22.9 L O2 Delivery Device Room Air Management Discussion w/another healthcare provider: Hospitalist Critical Care Time Critical Care Time: Yes Critical care time (excluding procedures): Discussing w/Patient &/or Family/CareGiver and - (Critical care time of of 33 minutes) Discharge Plan Triage Chief Complaint: Nausea/Vomiting ED Provider: Lul Singh Dx/Rx/DC Orders Clinical Impression: DKA (diabetic ketoacidoses), Type 1 diabetes, Nausea & vomiting, Diabetic gastroparesis Primary Care Provider: Care Physician,No Primary Disposition Disposition: Acute Care Hospital [facility] What to do if you have Problems For any increased pain, shortness of breath, bleeding, nausea or vomiting, chestpain, or any unexpected problems, contact your Primary Care Provider. Call [facility] ([phone]) or report to the closest Emergency Room. Call 911 if necessary. 08/07/23 0037 <Electronically signed by Lul Singh DO> Cosigner Signature (if applicable): CC: No Primary Care Physician ~ Signed [facility] Work Phone: 1(783) 995-613610-30-2023 Discharge summary Author Siddharth Herrera [facility] June 26, 2023 2:36am Note Date/Time June 25, 2023 1 1:26pm [facility] Medical Records Department [address] [place] [address] Emergency Department Summary 06/25/23 MR#: [id number] Acct: [id number] Name: KATHLEEN VILLA Rep #:[id number] : 1995 27 From: Siddharth Herrera MD PCP: Care Physician,No Primary Status :REG ER Location: ED HPI History of Present Illness Chief Complaint: Nausea/Vomiting Narrative Narrative: Patient presents with nausea and vomiting abdominal cramping. She has a historyof diabetic gastroparesis. She was seen earlier for similar symptoms. No fevers or chills. No back pain or tearing sensation. She has no urinary symptoms. PFSH PFS Medical History Anxiety Borderline personality disorder Depression Gastroparesis History of tachycardia Intractable vomiting Kidney disease Kidney stones Marfan syndrome PTSD (post-traumatic stress disorder) Smoker Substance abuse Type 1 diabetes Home Medications insulin lispro 100 unit/mL subcutaneous solution (Humalog U-100 Insulin) See Rx Instructions .Route .COMPLEX 04/27/23 [History Last Taken 04/27/23] pantoprazole 40 mg tablet,delayed release (Protonix) 40 mg PO DAILY #30 tabs 04/29/23 [Rx Last Taken Unknown] scopolamine base 1 mg over 3 days transdermal patch 1 patch transdermal Q3D #3 ea 04/29/23 [Rx Last Taken Unknown] Allergy/AdvReac Type Severity Reaction Status Date / Time adhesive tape Allergy Intermediate Rash Verified 06/25/23 08:26 cephalexin [From Keflex] Allergy Intermediate Other Verified 06/25/23 08:26 morphine Allergy Intermediate Rash Verified 06/25/23 08:26 oxycodone [From Percocet] Allergy Intermediate Rash Verified 06/25/23 08:26 ondansetron AdvReac I BLACK Verified 06/25/23 08:26 OUT AND LOSE CONTROL OF MY BLADDER Surgical History H/O aortic root repair History of loop recorder Hx of appendectomy Hx of eye surgery Social History Smoking Status: Current some day smoker tobacco type: cigarettes and e- cigarettes substance use type: marijuana ROS ROS ED ROS Narrative Past medical history: Reviewed Medications: Reviewed Social history: Noncontributory Review of systems: All systems negative except as indicated General: No fever Eyes: No visual changes ENT: No upper airway congestion, normal voice Neck: No neck pain Cardiovascular: No chest pain Respiratory: No shortness of breath or cough Gastrointestinal: Nausea vomiting and abdominal pain. Genitourinary: No dysuria Musculoskeletal: Denies myalgias no difficulty with ambulation Skin: No rash Neurological: No memory loss, confusion or any focal weakness EXAM Physical Exam Narrative Exam Narrative: Physical exam General: Well nourished, Well developed, No Acute Distress Head: Normocephalic, Atraumatic Eyes: Conjunctiva not pale ENT: Moist mucous membranes Neck: Supple, Nontender, No lymphadenopathy Cardiovascular: Regular rate, Regular rhythm Respiratory: No distress, CTA bilaterally Abdomen: Soft, tenderness throughout the abdomen. Back: Nontender, Normal Inspection. Negative for: CVA tenderness Extremities: Nontender, No edema Skin: Normal color, No rash Neurological: Alert, Normal Strength, Normal Sensation Const Vital Signs: 06/25/23 23:14 06/26/23 01:13 Temperature 97.4 F L Temperature Source Temporal Pulse Rate 50 L 80 Respiratory Rate 18 18 Blood Pressure 118/44 L 97/40 L Blood Pressure Mean 68 59 Pulse Ox 97 97 Oxygen Delivery Method Room Air Room Air MDM MDM MDM Narrative Medical decision making narrative: Patient significantly improved after Haldol, Reglan, Benadryl and Valium. She does not have an anion gap, glucose is slightly elevated. At this time she doesnot have any abdominal pain I do not believe she needs a CT of the abdomen. Shewants to be discharged and I will discharge in stable condition. Her gastroparesis is chronic and recurrent and feels similar to all prior gastroparesis. She does not meet admission criteria since she improved. Lab Data Labs: Laboratory Results - last 24 hr 06/26/23 00:40 WBC 14.2 H RBC 4.21 Hgb 12.3 Hct 38.1 MCV 90.5 MCH 29.2 MCHC 32.3 RDW Std Deviation 42.9 RDW Coeff of Joyce 13.0 Plt Count 160 MPV 12.7 H Immature Gran % (Auto) 0.800 Neut % (Auto) 88.9 H Lymph % (Auto) 6.8 L Mclean % (Auto) 3.4 Eos % (Auto) 0.0 Baso % (Auto) 0.1 Absolute Neuts (auto) 12.6 H Absolute Lymphs (auto) 0.96 Nucleated RBC % 0 Sodium 137 Potassium 3.5 Chloride 104 Carbon Dioxide 21.0 Anion Gap 12 BUN 16 Creatinine 0.85 Estim Creat Clear Calc 102.98 Est GFR (MDRD) Af Amer 102 Est GFR (MDRD) Non-Af 84 BUN/Creatinine Ratio 18.9 Glucose 254 H Calcium 8.8 Total Bilirubin 0.90 AST 35 ALT 69 H Alkaline Phosphatase 86 Total Protein 6.8 Albumin 3.6 Globulin 3.2 Albumin/Globulin Ratio 1.1 Lipase < 10 L Discharge Plan Triage Chief Complaint: Nausea/Vomiting ED Provider: Siddharth Herrera Dx/Rx/DC Orders Clinical Impression: Diabetes mellitus, Vomiting, Diabetic gastroparesis Instructions: ED Vomiting (Adult) Prescriptions: No Action insulin lispro [Humalog U-100 Insulin] 100 unit/mL solution See Rx Instructions .ROUTE .COMPLEX Patient Comments: use IN THE INSULIN PUMP FOR A TOTAL DAILY DOSE OF 100 UNITS Rx Instructions: 100U VIA PUMP DAILY; scopolamine base 1 mg over 3 days Patch 3 Day 1 patch transdermal Q3D Qty: 3 0RF pantoprazole [Protonix] 40 mg tablet,delayed release (DR/EC) 40 mg PO DAILY Qty: 30 0RF Primary Care Provider: Care Physician,No Primary Referrals: Care Physician,No Primary [Primary Care Provider] - 3-5 Days Disposition Disposition: Home, Self Care What to do if you have Problems For any increased pain, shortness of breath, bleeding, nausea or vomiting, chestpain, or any unexpected problems, contact your Primary Care Provider. Call [facility] ([phone]) or report to the closest Emergency Room. Call 911 if necessary. 06/26/23 0236 <Electronically signed by Siddharth Herrera MD> Cosigner Signature (if applicable): CC: No Primary Care Physician ~ Signed [facility] Work Phone: 1(551) 146-112810-04-2023 Instructions* Patient Instructions* Jessica Guerrero APRN.TECHNICAL PROGRAMS MANAGER - 05/31/2023 3:38 PM EDT Plan: 1) Keep glucose tablets or hard candy with you at all times in case of a low blood sugar 2) Please bring meter and/or log book with you to your appointments 3) Talk to Zohreh Cerrato regarding setting up for Medtronic upgrade 4) Continue with same insulin pump settings 5) [facility] History of Present illness Narrative* Jessica Guerrero APRN.FRIEDA - 05/31/2023 3:00 PM EDT Images from the original note were not included. [facility] DIABETES VISIT ALLERGIES Allergen Reactions Percocet [Oxycodone* Rash, Intolerance, Itching Adhesive Tape (Lidia* Rash Indomethacin Rash Keflex [Cephalexin] Other: See Comments Makes infection worse- patient denies this on 02/25/2014 Morphine Rash, Itching Zofran [Ondansetron* Other: See Comments syncope Adhesive Rash Current Outpatient Medications Medication Sig insulin lispro (HUMALOG U-100 INSULIN) 100 unit/mL injection Use in the Insulin Pump for TDD of 100units. lubiprostone (AMITIZA) 8 mcg capsule Take 1 capsule by mouth twice daily with meals. prochlorperazine (COMPAZINE) 10 mg tablet Take 1 tablet by mouth every 6 hours as needed. Lancets (MICROLET LANCET) lancets Use as instructed to test blood sugar 4 times daily. E10.65 blood sugar diagnostic (CONTOUR NEXT TEST STRIPS) test strip Use as instructed to check blood glucose 5 times daily. E10.65 glucose 4 gram chewable tablet Take 4 tablets by mouth as needed. insulin glargine (LANTUS SOLOSTAR, BASAGLAR KWIKPEN) 100 unit/mL (3 mL) Inject 43 Units subcutaneously as directed in the event of Insulin pump failure. Acetone, Urine, Test (KETONE URINE TEST) Use as directed promethazine (PHENERGAN) 50 mg tab(s) Take 1 tablet by mouth every 8 hours as needed. SKYRIZI 150 mg/mL injection INJECT 150 MG UNDER THE SKIN EVERY 12 WEEKS No current facility-administered medications for this visit. Immunization History Administered Date(s) Administered hepatitis A (HepA) vaccine, 2-dose series, ped/adol (HAVRIX-PEDS, VAQTA-PEDS) 05/09/2012 human papillomavirus (HPV4) vaccine, quadrivalent (GARDASIL) 06/12/2012 08/11/2012 influenza (IIV3) vaccine, age 3+ yr, trivalent (AFLURIA, FLULAVAL, FLUVIRIN, FLUZONE) 05/23/2014 influenza (IIV3) vaccine, trivalent (AFLURIA, FLULAVAL, FLUVIRIN, FLUZONE) 06/14/2016 influenza (IIV3) vaccine, trivalent, PF (AFLURIA, FLUARIX, FLULAVAL, FLUVIRIN, FLUZONE) 06/05/2015 influenza (IIV4) vaccine, age 6 mo - 64 yr, quadrivalent, PF (AFLURIA, FLUARIX, FLULAVAL, FLUZONE) 11/05/2019 influenza (LAIV) vaccine, nasal, unspecified formulation 05/30/2016 meningococcal (MenACWY-D) vaccine, quadrivalent (MENACTRA) 11/03/2009 pneumococcal (PPV23) vaccine, 23 valent (PNEUMOVAX 23) 01/01/2013 tetanus diphtheria pertussis (Tdap) vaccine, age 7+ yr (ADACEL, BOOSTRIX) 11/03/2009 04/16/2014 Social History Tobacco Use Smoking status: Former Packs/day: 0.30 Years: 8.00 Additional pack years: 0.00 Total pack years: 2.40 Types: Cigarettes Quit date: 06/2019 Years since quittin.9 Smokeless tobacco: Never Vaping Use Vaping Use: Never used Substance Use Topics Alcohol use: Yes Comment: very rarely Drug use: Yes Types: Marijuana Comment: medical card previous 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 VAMSI 11/2014 SECTION HX 02/25/2014 amairani 37 weeks PAST SURGICAL HISTORY OF Right 01/08/2020 REMOVE IMPLANTED MATERIAL POSTERIOR SEGMENT OF EYE, EXTRAOCULAR PICC LINE INSERT/CONSULT 01/09/2014 PORT Left VITRECTOMY MECHANICAL PARS PLANA 10/29/2012 PPV ([place] Vitrectomy) OD VITRECTOMY MECHANICAL PARS PLANA 05/14/2014 PPV (Pars [place]ana Vitrectomy)/PCIOL OS XTRNL PT ACTIV ECG TRANSMIS W/R&I </30 DAYS 09/05/2014 left chest wall FAMILY HISTORY Problem Relation Age of Onset Cancer Mother 18 cervical Thyroid Mother Multiple Sclerosis Father other (mitral valve) Father Thyroid Sister Diabetes Maternal Grandmother type 2 diabetes Cataract Other maternal great grandma Glaucoma Other maternal great grandma I reviewed the Metallurgical Technician's notes with this visit for vital signs, current allergies, medications, electronic medical record, lab(s), outside lab(s), and or back office lab(s) results, historyof vaccinations, and chief complaints. I edited the information obtained, as required. HISTORY OF PRESENT ILLNESS Last endo office visit: 12/2022 with CHRIS Leyva Kathleen Villa is a 27 year old female who comes for follow-up of Type 1 DM which is uncontrolled. Patient has had diabetes since age 14 YO. Also known history of gastroparesis, retinopathy, HTN, Marfan's syndrome with dilated aortic root, anxiety/depression Family history of DM: yes, maternal grandmother DM2 Hospitalized 01/31-02/04 for nausea and vomiting, DKA ED visit for nausea/vomiting 03/20/23 Following with GI for gastroparesis She is living at a retirement currently She was not able to find her meter for Medtronic until today. She has been using other meter to check blood glucose levels She has Medtronic 770G, needs to set up appointment with Zohreh Block to transfer to new insulin pump. Gilda needs office visit notes from today faxed to [facility] in order to receive transmitter for her Guardian CGM. Patient's last HgA1C was Hemoglobin A1C (%) Date Value 12/30/2021 6.2 Hemoglobin A1C (POCT) (%) Date Value 05/31/2023 7.2 . Diet: Number of meals per day: 1 Number of snack per day: 2 Meals vary Challenging with gastroparesis At least 1 meal and snacks Current Medications to manage DM: The patient is currently taking Humalog insulin via Medtronic 630G insulin pump in manual mode at the following settings to manage their diabetes: Basal rate: 00:00= 1.8 units/hr 43.2= units per 24 h basal rate Bolus: Insulin:carb ratio 00:00= 10 g/ unit Sensitivity 00:00= 30 mg/dL Blood glucose target 00:00= 100-120 mg/dL Insulin duration= 3 hrs MONITORING: Insulin pump download reveals the following over the last 14 days: 1. Patient tests an average of 0.2 times per day 2. Patient boluses an average of 4.2 times per day 3. Average total daily dose is 93.7 units 4. Average % basal: bolus Ratio is 46:54 5. Average fingerstick blood glucose is 213 + 156 mg/dl 6. Average sensor blood glucose is N/a 7. Average daily carbs entered is 474 + 268 g 8. Patient changes pump site every 3.3 days. Download of Insulin Pump of past 14 days: She is entering extra carbs to her pump that she is not eating Recalls average blood glucose 100-190 on other meter. Symptoms of Hyperglycemia including polyuria, polydipsia, rapid weight loss, blurred vision: no Hypoglycemia: yes Hypoglycemia awareness: yes, karolina OTHER ISSUES: Ophthalmology 06/2020 Retinopathy: yes Podiatry: Neuropathy: none Exercise: walking LABS TSH (UIU/ML) Date Value 06/03/2021 6.118 02/04/2021 3.712 08/14/2019 4.480 ALT (U/L) Date Value 04/05/2023 87 02/03/2023 19 02/01/2023 19 01/29/2022 28 12/27/2021 13 12/25/2021 13 Potassium Date Value 04/05/2023 4.0 mmol/L 02/04/2023 3.4 mmol/L 02/01/2022 3.7 MMOL/L 01/31/2022 3.7 MMOL/L Creatinine Date Value 04/05/2023 0.69 mg/dL 02/04/2023 0.58 mg/dL 02/04/2023 0.61 mg/dL 02/01/2022 0.64 MG/DL 01/31/2022 0.61 MG/DL 01/30/2022 0.68 MG/DL Hemoglobin A1C (%) Date Value 12/30/2021 6.2 02/04/2021 6.1 10/06/2020 6.7 Hemoglobin A1C (POCT) (%) Date Value 01/25/2023 7.6 08/16/2022 7.0 11/25/2020 6.3 Albumin, Urine Random (mg/L) Date Value 03/21/2017 25.6 Microalbumin, Urine Random (UG/ML) Date Value 05/06/2019 LESS THAN 5.0 Creatinine, Ur Random (UCRR) (mg/dL) Date Value 03/21/2017 90.3 Albumin/Creat Ratio (mg/g) Date Value 03/21/2017 28 Glucose Date Value 04/05/2023 79 mg/dL 02/04/2023 271 mg/dL 02/04/2023 269 mg/dL 02/01/2022 104 MG/DL 01/31/2022 167 MG/DL 01/30/2022 87 MG/DL 08/31/2015 287 mg/dL Calcium (MG/DL) Date Value 02/01/2022 8.4 01/31/2022 9.1 Calcium, Total (mg/dL) Date Value 04/05/2023 9.6 02/04/2023 8.3 Vitamin D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 all of which could also be pointing to an early DKA, will monitor closely and adjust as necessary -04/28: Continue insulin glargine 10 twice daily with 5 units of Premeal, continueIV Reglan, patient was started on erythromycin overnight as well, patient has been on aggressive fluids, diet as tolerated. Patient did have ketones in urineand acetone was small without any acidosis or anion gap but bicarb is low which is likely multifactorial as chloride is elevated, will switch fluids to LR, continue management otherwise #Leukocytosis -Possibly reactive, UA not suggestive of UTI -Had recent CT of abdomen that was unremarkable -Could have GI source however she reported her symptoms were similar to her gastroparesis symptoms and did not have any significant abdominal pain #History of Marfan's syndrome has had an aortic root repair -04/28: Supportive care, had CTA of the chest 04/26/2023 with no dissection DVT: Ambulation 40 minutes was spent on direct patient care, including documentation as well as chart review and collaboration with colleagues Charges/Coding Visit Charges Inpatient E&M: 86891 Subs Hosp L2 04/28/23 1035 <Electronically signed by Ileana Lobo MD> Cosigner Signature (if applicable): CC: ~ Signed [facility] Work Phone: 1(956) 987-221009-01-2023 Progress note Author Vincenzo Castañeda [facility] April 28, 2023 2:00am Note Date/Time April 28, 2023 2:00am [facility] Medical Records Department [address] [place] [address] Progress Note 04/28/23 0158 MR#: [id number] Acct: [id number] Name: KATHLEEN VILLA Rep #:[id number] : 1995 27 From: Vincenzo Castañeda MD PCP: Care Physician,No Primary Status :ADM LEROY Location: [place]3 TM957-3 Progress Note With possible gastroparesis and nausea and vomiting persisting with reglan and compazine; and allergic to statin start erthyromycin base. 04/28/23 0200 <Electronically signed by Vincenzo Castañeda MD> Vincenzo Castañeda MD Cosigner Signature (if applicable): CC: ~ Signed [facility] Work Phone: [phone] History and physical note Author David Smith [facility] April 27, 2023 6:50pm Note Date/Time April 27, 2023 5: 22pm [facility] Medical Records Department [address] [place] [address] H&P Exam - Hospitalist 04/27/23 1712 MR#: [id number] Acct: [id number] Name: KATHLEEN VILLA Rep #:[id number] : 1995 27 From: David beatty MD PCP: Care Physician,No Primary Status :ADM LEROY Location: [place]3 WA219-6 HPI - General General Date of Admission: 04/27/23 HPI Narrative KATHLEEN VILLA, is a 27 F who presents to the hospital with intractable nausea and vomiting. She denies any recent illnesses, no fevers or chills but has had significant issues and feels like this is her gastroparesis. She is a type I diabetic on an insulin pump and states that normally when she is doing well her blood sugar is maximum 180, today 313 she does have a leukocytosis of unknown etiology no urine or chest x-ray was obtained. She denies any shortness of breath or cough however will need to obtain a urine. She has received IV fluidsand her creatinine is slightly elevated though not consistent with an YANDY. [facility], [facility] Medical History (Updated 04/27/23 @ 17:16 by Estelita Vargas) Anxiety Borderline personality disorder Depression Gastroparesis History of tachycardia Kidney disease Kidney stones Marfan syndrome PTSD (post-traumatic stress disorder) Smoker Substance abuse Type 1 diabetes Home Medications sulfamethoxazole 800 mg-trimethoprim 160 mg tablet 1 tab PO BID #6 TABLETS 04/23/23 [Rx Last Taken 04/26/23] insulin lispro 100 unit/mL subcutaneous solution (Humalog U-100 Insulin) See Rx Instructions .Route .COMPLEX 04/27/23 [History Last Taken 04/27/23] risankizumab-rzaa 150 mg/mL subcutaneous syringe (Skyrizi) 150 mg subcut Q84D 04/27/23 [History Last Taken Unknown] sucralfate 1 gram tablet 1 g PO ACHS PRN STOMACH 04/27/23 [History Last Taken Unknown] Allergy/AdvReac Type Severity Reaction Status Date / Time acetaminophen [From Percocet] Allergy Intermediate Rash Verified 04/27/23 12:30 adhesive tape Allergy Intermediate Rash Verified 04/27/23 12:30 cephalexin [From Keflex] Allergy Intermediate Other Verified 04/27/23 12:31 morphine Allergy Intermediate Rash Verified 04/27/23 12:30 oxycodone [From Percocet] Allergy Intermediate Rash Verified 04/27/23 12:30 ondansetron AdvReac I BLACK Verified 04/27/23 09:26 OUT AND LOSE CONTROL OF MY BLADDER no significant family history Surgical History H/O aortic root repair History of loop recorder Hx of appendectomy Hx of eye surgery Social History Smoking Status: Current some day smoker tobacco type: e-cigarettes substance use type: marijuana ROS Constitutional Constitutional: Denies chills, fatigue, fever(s) or malaise Eyes Eyes: Denies blurry vision ENT HEENT: Denies headache(s) or nasal discharge Cardiovascular Cardiovascular: Denies chest pain, dyspnea on exertion or syncope Respiratory/Chest Respiratory/Chest: Denies cough, shortness of breath at rest or shortness of breath with exertion Gastrointestinal Gastrointestinal: Reports abdominal pain, nausea and vomiting; Denies constipation or diarrhea Genitourinary Genitourinary: Denies dysuria Neurologic Neurologic: Denies focal weakness, numbness or tremor(s) Psychiatric Psychiatric: Denies anxiety or depression Vital Signs Vital Signs Vital Signs: 04/27/23 09:26 04/27/23 11:22 04/27/23 12:39 Temperature 96.8 F L Temperature Source Temporal Pulse Rate 123 H 84 93 Respiratory Rate 21 H 27 H 18 Blood Pressure 115/86 H 116/61 120/51 L Blood Pressure Mean 95 79 74 Pulse Ox 100 96 Oxygen Delivery Method Room Air Room Air Room Air 04/27/23 13:23 04/27/23 16:13 04/27/23 16:45 Temperature 97.8 F Temperature Source Oral Pulse Rate 100 90 Respiratory Rate 30 H 21 H 18 Blood Pressure 119/58 L 128/81 H 118/61 Blood Pressure Mean 78 96 80 Pulse Ox 96 Oxygen Delivery Method Room Air Room Air Room Air Weight Weight: 173 lb 8 oz Body Mass Index (BMI) 25.6 Physical Exam Narrative General: Alert, Oriented x3, Cooperative, No apparent distress HEENT: Atraumatic, PERRLA, EOMI, Normocephalic Oral: Dry mucosa Neck: Supple, No JVD Lungs: Clear to auscultation, Normal air movement, No rhonchi, No wheeze, No rales Cardiovascular: Tachycardic, Regular Rhythm, Normal S1, Normal S2, No murmurs Abdomen: Soft, Non Tender, Non-Distended, No Hepato-splenomegaly Extremities: No edema, Capillary Refill Less than 3 Seconds Skin: No rashes, No breakdown Musculoskeletal: No Tenderness to Palpation of Joints or Extremities Neurological: Cranial nerves II-XII grossly intact, Motor Exam 5/5 strength throughout, Sensory exam intact to light touch and pain Psych/Mental Status: Flat Results Lab / Micro Data 04/27/23 10:20 04/27/23 10:20 Labs: Laboratory Results - last 24 hr 04/27/23 10:20: WBC 20.9 H, RBC 4.65, Hgb 13.5, Hct 42.0, MCV 90.3, MCH 29.0, MCHC 32.1, RDW Std Deviation 46.5 H, RDW Coeff of Joyce 14.2, Plt Count 158, MPV 12.5 H, Immature Gran % (Auto) 1.800 H, Neut % (Auto) 93.9 H, Lymph % (Auto) 3.2L, Mclean % (Auto) 0.9, Eos % (Auto) 0.0, Baso % (Auto) 0.2, Absolute Neuts (auto)19.6 H, Absolute Lymphs (auto) 0.67 L, Nucleated RBC % 0, Sodium 130 L, Potassium 5.1, Chloride 102, Carbon Dioxide 13.0 L, Anion Gap 15, BUN 15, Creatinine 1.08 H, Estim Creat Clear Calc 78.23, Est GFR (MDRD) Af Amer 77, Est GFR (MDRD) Non-Af 64, BUN/Creatinine Ratio 13.9, Glucose 313 H, Calcium 9.4, Total Bilirubin 1.00, Direct Bilirubin 0.30, AST 10 L, ALT 22, Alkaline Phosphatase 85, Total Protein 7.5, Albumin 4.0, Globulin 3.5, Lipase 10 L 04/27/23 15:11: POC Glucose 206 H Assessment & Plan Assessment/Plan (1) Intractable vomiting: PLAN: Plan 1. Intractable nausea and vomiting in the setting of type 1 diabetes with a history of gastroparesis ? Blood sugars elevated this could be an early DKA therefore we will give a significant amount of fluids as well as aggressively control her blood sugar ? We will add a carb controlled diet ? We will continue with Reglan ? She did have leukocytosis this could be reactive however we will check a UA asshe is on Bactrim for possible UTI though we have no records of it in our system ?Of note she has had a decreasing bicarb on lab work from 25 down to 13 she has had a worsening pseudohyponatremia all of which could also be pointing to an early DKA, will monitor closely and adjust as necessary 2. History of Marfan's syndrome has had an aortic root repair DVT: Ambulation 75 minutes was spent on direct patient care, including documentation as well as chart review and collaboration with colleagues Charges/Coding Visit Charges Inpatient E&M: 27658 Init Hosp L3 04/27/23 7710 <Electronically signed by David Smith MD> Cosigner Signature (if applicable): CC: Dr. David Smith MD; No Primary Care Physician~ Signed [facility] Work Phone: [phone] Discharge summary Author Lin Johansen [facility] April 27, 2023 5:22pm Note Date/Time April 27, 2023 11 :49am [facility] Medical Records Department [address] [place] [address] Emergency Department Summary 04/27/23 MR#: [id number] Acct: [id number] Name: KATHLEEN VILLA Rep #:[id number] : 1995 27 From: Lin Johansen MD PCP: Care Physician,No Primary Status :ADM LEROY Location: [place] [address] HPI History of Present Illness Chief Complaint: Nausea/Vomiting Informant: patient Onset/Context/Timing Onset: Yesterday Narrative Narrative: Patient presents secondary to nausea and vomiting. She is a history of gastroparesis with similar symptoms. Patient was seen in the ER yesterday with elevated heart rate. Work-up was rather unremarkable. She states she was getting nauseated prior to discharge and was given a dose of antiemetics. Patient states in spite of this she continued to have progressive nausea overnight and vomited several times. [facility] Medical History Anxiety Borderline personality disorder Depression Gastroparesis Marfan syndrome PTSD (post-traumatic stress disorder) Type 1 diabetes Home Medications promethazine 50 mg tablet 50 mg PO Q6H PRN nausea 04/23/23 [History Last Taken Unknown] sulfamethoxazole 800 mg-trimethoprim 160 mg tablet 1 tab PO BID #6 TABLETS 04/23/23 [Rx Last Taken Unknown] Allergy/AdvReac Type Severity Reaction Status Date / Time acetaminophen [From Percocet] Allergy Intermediate Rash Verified 04/27/23 12:30 adhesive tape Allergy Intermediate Rash Verified 04/27/23 12:30 cephalexin [From Keflex] Allergy Intermediate Other Verified 04/27/23 12:31 morphine Allergy Intermediate Rash Verified 04/27/23 12:30 oxycodone [From Percocet] Allergy Intermediate Rash Verified 04/27/23 12:30 ondansetron AdvReac I BLACK Verified 04/27/23 09:26 OUT AND LOSE CONTROL OF MY BLADDER Surgical History H/O aortic root repair History of loop recorder Hx of appendectomy Hx of eye surgery Social History Smoking Status: Current some day smoker tobacco type: e-cigarettes substance use type: marijuana ROS ROS ED Constitutional Constitutional ED: Denies chills or fever(s) Eyes Eyes: Denies discharge from eye(s) ENT ENT ED: Denies discharge from eye(s), rhinorrhea or sore throat Cardiovascular Cardiovascular: Denies chest pain Respiratory/Chest Respiratory/Chest: Denies cough or dyspnea Gastrointestinal Gastrointestinal: Reports abdominal pain, nausea and vomiting; Denies diarrhea Genitourinary Genitourinary ED: Denies dysuria Musculoskeletal Musculoskeletal: Denies back pain or extremity pain Integumentary Denies Abrasions or rash Neurologic Neurologic: Denies headache(s) or weakness Psychiatric Psychiatric: Denies anxiety or depression Allergic/Immunologic Allergic/Immunologic ED: Denies lip swelling or urticaria EXAM Physical Exam Const Vital Signs: 04/27/23 09:26 04/27/23 11:22 04/27/23 12:39 Temperature 96.8 F L Temperature Source Temporal Pulse Rate 123 H 84 93 Respiratory Rate 21 H 27 H 18 Blood Pressure 115/86 H 116/61 120/51 L Blood Pressure Mean 95 79 74 Pulse Ox 100 96 Oxygen Delivery Method Room Air Room Air Room Air 04/27/23 13:23 Temperature Temperature Source Pulse Rate 100 Respiratory Rate 30 H Blood Pressure 119/58 L Blood Pressure Mean 78 Pulse Ox 96 Oxygen Delivery Method Room Air Positive well nourished and well developed General Appearance ED: well developed HEENT Reports moist mucous membranes Eyes EOMs intact bilaterally Chest Wall inspection of chest normal and palpation of chest normal Resp normal respiratory effort and clear to auscultation bilaterally Cardio regular rate and regular rhythm GI GI Narrative: Abdomen soft with mild diffuse tenderness palpation. No guarding or rebound. Extremity normal to inspection Neuro oriented x3 and no sensory deficits noted Motor Exam: strength 5/5 throughout Skin no rashes or lesions noted MDM MDM MDM Narrative Medical decision making narrative: Patient has been seen twice in the ER recently. Did review those notes. Patient had CT imaging of her chest, abdomen, and pelvis at these visits. Labwork obtained to evaluate for leukocytosis, anemia, and electrolyte derangement. Patient given IV fluids along with Bentyl and Phenergan which seemed to help control her symptoms previously. History & Record Review Discussion w/independent historian: Patient Additional record(s) reviewed:: Prior ED visit and Prior labs Lab Data Attestation: I reviewed the patient's lab results. Labs: Laboratory Results - last 24 hr 04/27/23 04/27/23 10:20 15:11 WBC 20.9 H RBC 4.65 Hgb 13.5 Hct 42.0 MCV 90.3 MCH 29.0 MCHC 32.1 RDW Std Deviation 46.5 H RDW Coeff of Joyce 14.2 Plt Count 158 MPV 12.5 H Immature Gran % (Auto) 1.800 H Neut % (Auto) 93.9 H Lymph % (Auto) 3.2 L Mclean % (Auto) 0.9 Eos % (Auto) 0.0 Baso % (Auto) 0.2 Absolute Neuts (auto) 19.6 H Absolute Lymphs (auto) 0.67 L Nucleated RBC % 0 Sodium 130 L Potassium 5.1 Chloride 102 Carbon Dioxide 13.0 L Anion Gap 15 BUN 15 Creatinine 1.08 H Estim Creat Clear Calc 78.23 Est GFR (MDRD) Af Amer 77 Est GFR (MDRD) Non-Af 64 BUN/Creatinine Ratio 13.9 Glucose 313 H Calcium 9.4 Total Bilirubin 1.00 Direct Bilirubin 0.30 AST 10 L ALT 22 Alkaline Phosphatase 85 Total Protein 7.5 Albumin 4.0 Globulin 3.5 Lipase 10 L POC Glucose 206 H Treatment and Re-Evaluation :: CBC reveals an elevated white count at 20.9. White count was elevated in the 13- 14 range on previous visits. She does have 94% neutrophils. Chemistry studies reveal a sodium of 130 with a potassium of 5.1. Bicarb is slightly low at 13. Anion gap is normal at 15. Glucose is 313 and patient is a known diabetic. LFTs are unremarkable and lipase is normal. On repeat evaluation patient states she just had further vomiting. I will give her a dose of Reglan and Benadryl at this time. She continues to complain of only mild diffuse abdominal cramping. Given that she has had recent imaging I do not feel repeat CT is needed at this time. My suspicion is that her her vomiting has contributed to her leukocytosis. After the patient had received Reglan and Benadryl she continued to have significant nausea with vomiting. She requested something to help with acid reflux and was given Protonix. I attempted to give her a GI cocktail but because of vomiting she was unable to tolerate this. She was given an additional dose of Phenergan. At this time patient continues to be quite nauseated and cannot tolerate p.o. This is the patient's third visit to the ER this week. With 3 rounds of antiemetics at this time and her nausea still not well controlled I do feel she will require hospitalization. I will speak with the hospitalist. Discharge Plan Triage Chief Complaint: Nausea/Vomiting ED Provider: Lin Johansen Dx/Rx/DC Orders Clinical Impression: Intractable vomiting Prescriptions: No Action promethazine 50 mg tablet 50 mg PO Q6H PRN (Reason: nausea) sulfamethoxazole-trimethoprim [sulfamethoxazole-trimethoprim] 800-160 mg tablet 1 tab PO BID Qty: 6 0RF Primary Care Provider: Care Physician,No Primary Referrals: Care Physician,No Primary [Primary Care Provider] - Disposition Disposition: Acute Care Hospital [facility] What to do if you have Problems For any increased pain, shortness of breath, bleeding, nausea or vomiting, chestpain, or any unexpected problems, contact your Primary Care Provider. Call [facility] ([phone]) or report to the closest Emergency Room. Call 911 if necessary. 04/27/231721 <Electronically signed by Lin Johanesn MD> Cosigner Signature (if applicable): CC: No Primary Care Physician ~ Signed [facility] Work Phone: 1([phone]) 351-662908-30-2023 Discharge summary Author Loki Soria [facility] April 26, 2023 11:22pm Note Date/Time April 26, 2023 8: 53pm [facility] Medical Records Department [address] [place] [address] Emergency Department Summary 04/26/23 MR#: [id number] Acct: [id number] Name: KATHLEEN VILLA Rep #:[id number] : 1995 27 From: Loki Soria DO PCP: Care Physician,No Primary Status :REG ER Location: ED HPI History of Present Illness Chief Complaint: Palpitations Detail of Chief Complaint: Chest pain and tachycardia Informant: patient Narrative Narrative: Patient presents to the emergency Veteran complaint of tachycardia that started while in the shower. Patient states that her friend at the [facility] had a pulse oximeter and her heart rate was in the 150s. She subsequently developed asharp chest pain rating from the left chest towards the center of her chest. Pain is intermittent. Currently she rates her pain a 6 out of 10. She denies recent travel or surgery. Patient states that she has history of Marfan's and has had an aortic root repair in 2014. Patient does have episodes of tachycardia and tells me that every time they put her on medication to control that her blood pressure does not tolerate it and drops. PFSH PFS Medical History (Updated 04/26/23 @ 23:[address] Loki Soria DO) Anxiety Borderline personality disorder Depression Gastroparesis Marfan syndrome PTSD (post-traumatic stress disorder) Type 1 diabetes Home Medications promethazine 50 mg tablet 50 mg PO Q6H PRN nausea 04/23/23 [History Last Taken Unknown] sulfamethoxazole 800 mg-trimethoprim 160 mg tablet 1 tab PO BID #6 TABLETS 04/23/23 [Rx Last Taken Unknown] Allergy/AdvReac Type Severity Reaction Status Date / Time ondansetron AdvReac I BLACK Verified 04/26/23 20:27 OUT AND LOSE CONTROL OF MY BLADDER Surgical History H/O aortic root repair History of loop recorder Hx of appendectomy Hx of eye surgery Social History (Updated 04/23/23 @ 09:[address] Greg Philip DO) Smoking Status: Current some day smoker tobacco type: e-cigarettes substance use type: marijuana ROS ROS ED Review of Systems ROS Unobtainable: other Constitutional Constitutional ED: Reports lethargy; Denies chills, fever(s), sweats or weight loss Eyes Eyes: Denies blurry vision, change in vision or diplopia ENT ENT ED: Denies rhinorrhea or sore throat Cardiovascular Cardiovascular: Reports chest pain, palpitations and racing heartbeat; Denies orthopnea Respiratory/Chest Respiratory/Chest: Denies cough, dyspnea, dyspnea on exertion, orthopnea or sputum Gastrointestinal Gastrointestinal: Denies abdominal pain, diarrhea, nausea or vomiting Genitourinary Genitourinary ED: Denies dysuria, hematuria or urinary frequency Musculoskeletal Musculoskeletal: Denies arthralgias, back pain, myalgias or neck pain Integumentary Denies abscess, Abrasions or rash Neurologic Neurologic: Denies headache(s) or weakness Psychiatric Psychiatric: Denies anxiety, depression or suicidal thoughts Endocrine Endocrinology: Denies polydipsia, polyphagia or polyuria Hematologic/Lymphatic Hematologic/Lymphatic: Denies easy bleeding, easy bruising or lymphadenopathy Allergic/Immunologic Allergic/Immunologic ED: Denies mouth swelling, tongue swelling or urticaria EXAM Physical Exam Const Vital Signs: 04/26/23 20:25 04/26/23 21:29 04/26/23 21:30 Temperature 98.6 F Temperature Source Temporal Pulse Rate 116 H 78 Respiratory Rate 18 21 H Respiratory Effort Non-Labored Blood Pressure 113/82 H 115/82 H Blood Pressure Mean 92 93 Pulse Ox 98 95 Oxygen Delivery Method Room Air Room Air 04/26/23 22:00 Temperature Temperature Source Pulse Rate 81 Respiratory Rate 22 H Respiratory Effort Blood Pressure Blood Pressure Mean Pulse Ox 97 Oxygen Delivery Method Room Air Positive well nourished and well developed General Appearance ED: well developed and NAD HEENT Reports TM's clear and moist mucous membranes normocephalic and atraumatic; Negative for trauma or tenderness Tympanic Membrane ED: Yes TM's clear Eyes PERRL and EOMs intact bilaterally General Eye ED: Negative for pale conjunctiva or scleral icterus Neck no lymphadenopathy, supple and no JVD General: Negative for tenderness Chest Wall inspection of chest normal and palpation of chest normal Chest: Negative for tenderness Resp normal respiratory effort and clear to auscultation bilaterally Effort and Inspection: Negative for respiratory distress or pain with movement Auscultation: Negative for rhonchi, wheezes or diminished lung sounds Cardio regular rate, regular rhythm, S1 normal heart sound, S2 normal heart sound and no murmurs Peripheral Pulses: pulses 2+ throughout GI normal to inspection, nondistended, normoactive bowel sounds, soft to palpation,non-tender, non-distended and no masses Back/Spine no CVA tenderness and no thoracic nor lumbar tenderness Extremity normal to inspection General Extremety ED: Negative for edema General Extremity: Negative for edema Neuro oriented x3, CN's II-XII intact bilaterally, no sensory deficits noted and gait normal Sensorium / Orientation: awake, alert, oriented to person, oriented to place andoriented to time Motor Exam: strength 5/5 throughout and strength abnormal Psych mental status grossly normal Skin no rashes or lesions noted and no wounds MDM MDM MDM Narrative Medical decision making narrative: Patient presented with tachycardia while in the shower today as well as development of chest pain. She has history of aortic root repair and history of Marfan's. IV line established on arrival. EKG obtained showed a sinus rhythm with a rate of 106 bpm with right atrial enlargement. CBC with differential showed a white count of 13.8 with hemoglobin of 14 and platelet count of 158. Chemistries unremarkable. Troponin was normal at 4. TSH was slightly elevated 3.85. CT of the chest was obtained to rule out dissection which was normal. Inreviewing her chart afterwards it was noted that patient was recently in the emergency department with similar complaint and had CT scan of the chest abdomenand pelvis which was unremarkable. Patient continued to complain of nausea and was given Compazine 10 mg IV. I also ordered a milligram of Ativan. Patient has Phenergan at home for her nausea. I will discharge her to home and advised to follow-up with primary care physician within next 3 to 5 days. Also will refer to GI for follow-up. Lab Data Attestation: I reviewed the patient's lab results. Labs: Laboratory Results - last 24 hr 04/26/23 21:20 WBC 13.8 H RBC 4.80 Hgb 14.1 Hct 42.6 MCV 88.8 MCH 29.4 MCHC 33.1 RDW Std Deviation 45.3 H RDW Coeff of Joyce 13.9 Plt Count 158 MPV 11.5 Immature Gran % (Auto) 0.900 Neut % (Auto) 78.6 H Lymph % (Auto) 13.6 L Mclean % (Auto) 6.2 Eos % (Auto) 0.4 Baso % (Auto) 0.3 Absolute Neuts (auto) 10.8 H Absolute Lymphs (auto) 1.87 Nucleated RBC % 0 Sodium 135 L Potassium 3.9 Chloride 106 Carbon Dioxide 20.0 L Anion Gap 9 BUN 10 Creatinine 0.96 Estim Creat Clear Calc 91.18 Est GFR (MDRD) Af Amer 89 Est GFR (MDRD) Non-Af 74 BUN/Creatinine Ratio 10.5 Glucose 108 H Calcium 9.2 Troponin I High Sens 4 TSH 3.85 H Radiography Diagnostic Testing: Clinical Impression(s) from Imaging Studies Chest CTA 04/26/23 20:50 IMPRESSION: Normal CTA chest examination, without a demonstrated pulmonary embolism or arterial dissection. No acute cardiopulmonary disease. Electronically Signed: Ruby Trimble MD at 22:52 EDT , EKG Initial EKG: Attestation: I personally reviewed and interpreted this EKG as follows: Comments: Sinus rhythm with a rate of 106 bpm with right atrial enlargement Discharge Plan Triage Chief Complaint: Palpitations ED Provider: Loki Soria Dx/Rx/DC Orders Clinical Impression: Tachycardia, Chest pain, Vomiting Instructions: ED Chest Pain, Uncertain Cause, ED Palpitations, ED Vomiting (Adult) Prescriptions: No Action promethazine 50 mg tablet 50 mg PO Q6H PRN (Reason: nausea) sulfamethoxazole-trimethoprim [sulfamethoxazole-trimethoprim] 800-160 mg tablet 1 tab PO BID Qty: 6 0RF Primary Care Provider: Care Physician,No Primary Referrals: Truman Gee DO [Med Staff - Active Staff] - 3-5 Days Care Physician,No Primary [Primary Care Provider] - Disposition Disposition: Home, Self Care What to do if you have Problems For any increased pain, shortness of breath, bleeding, nausea or vomiting, chestpain, or any unexpected problems, contact your Primary Care Provider. Call [facility] ([phone]) or report to the closest Emergency Room. Call 911 if necessary. 04/26/232321 <Electronically signed by Loki Soria DO> Cosigner Signature (if applicable): CC: No Primary Care Physician ~ Signed [facility] Work Phone: [phone]) 700-478107-26-2023 Note* Quick Note - Radha Pablo RN - 03/22/2023 4:32 PM EDT Seen by [place] [facility]. Received community resources. [id number] Miscellaneous Notes* Quick Note - Radha Pablo RN - 03/22/2023 4:32 PM EDT Seen by [place] [facility]. Received community resources. * Quick Note - Alta Teague RN - 03/22/2023 4:20 PM EDT Patient educated on discharge instructions including need for follow up, new medications, and symptoms to monitor for. Port heparinized and de-accessed. No further questions. * Plan of Care - Alta Teague RN - 03/22/2023 11:21 AM EDT Advance diet as tolerated today. Problem: Actual or potential alteration in health Goal: Absence of healthcare acquired conditions Outcome: Partially Met Goal: Knowledge of Interdisciplinary Plan of Care Outcome: Partially Met Goal: Knowledge of Enviroment Outcome: Partially Met Problem: Pain Goal: Manage acute pain Outcome: Partially Met Goal: Manage chronic pain Outcome: Partially Met Goal: Reduced pain sensation Outcome: Partially Met Goal: Achievement of comfort function goal Outcome: Partially Met * Quick Note - Liang Boothe RN - 03/22/2023 5:20 AM EDT 0355 pt complaining of feeling sick to her stomach and is sweaty so PSA obtained blood glucose level which was 42. This RN initiated the hypoglycemic order set and the patient was alert enough to eat/drink so 15g of glutose gel was given. Pt stated she gave herself 1.5 units of insulin through her insulin pump after eating a snack at 0046 and that must have dropped her. 0419 blood glucose recheck was 77. Pt was given a snack to maintain blood glucose and she stated she feels better at this time. Asked for PRN compazine at this time. 0516 blood glucose recheck was 168. Pt no longer feels sick. Will continue to monitor blood glucoseregularly. Pt resting in bed comfortably with no further needs at this time. * Plan of Care - Liang Boothe RN - 03/22/2023 12:15 AM EDT Problem: Actual or potential alteration in health Goal: Absence of healthcare acquired conditions Outcome: Partially Met Goal: Knowledge of Interdisciplinary Plan of Care Outcome: Partially Met Goal: Knowledge of Enviroment Outcome: Partially Met Problem: Pain Goal: Manage acute pain Outcome: Partially Met Goal: Manage chronic pain Outcome: Partially Met Goal: Reduced pain sensation Outcome: Partially Met Goal: Achievement of comfort function goal Outcome: Partially Met * Pharmacy Note - Felicia Montes RPh,PharmD - 03/21/2023 1:30 PM EDT Pharmacotherapy Note: CSII Pump Verification Pharmacist has inspected physical integrity of insulin. The following has been verified with the patient and / or patient's caregiver and by visual inspection: Type of Insulin used in pump: Insulin Lispro (Humalog). Patient is able to explain that the insulin and tubing are to be changed every 72 hours and that the infusion site is rotated with each refill. 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 She recently switched to Humalog and said the pump was refilled with brand new insulin before admission. Continue with insulin regimen as written. Please call pharmacy with any questions. Pharmacist: Felicia Montes Date: 03/21/2023 Contact Information: [phone] or Vocera * Plan of Care - Liang Boothe RN - 03/21/2023 1:19 AM EDT Problem: Actual or potential alteration in health Goal: Absence of healthcare acquired conditions Outcome: Partially Met Goal: Knowledge of Interdisciplinary Plan of Care Outcome: Partially Met Goal: Knowledge of Enviroment Outcome: Partially Met Problem: Pain Goal: Manage acute pain Outcome: Partially Met Goal: Manage chronic pain Outcome: Partially Met Goal: Reduced pain sensation Outcome: Partially Met Goal: Achievement of comfort function goal Outcome: Partially Met * Quick Note - Liang Purcell RN - 03/20/2023 6:32 PM EDT Admission skin assessment completed by this nurse and STIVEN Caceres. No skin issues identified at this time. * Plan of Care - Liang Purcell RN - 03/20/2023 6:29 PM EDT Care plan started Problem: Actual or potential alteration in health Goal: Absence of healthcare acquired conditions Outcome: Partially Met Goal: Knowledge of Interdisciplinary Plan of Care Outcome: Partially Met Goal: Knowledge of Enviroment Outcome: Partially Met Problem: Pain Goal: Manage acute pain Outcome: Partially Met Goal: Manage chronic pain Outcome: Partially Met Goal: Reduced pain sensation Outcome: Partially Met Goal: Achievement of comfort function goal Outcome: Partially Met * ED Procedure Note - Siddharth Gagnon MD - 03/20/2023 4:45 PM EDT Associated Order(s): ECG 12 Lead ECG 12 Lead Date/Time: 03/20/2023 4:45 PM Performed by: Siddharth Gagnon MD Authorized by: Mariel Gagnon MD Interpreted by ED attending physician Comparison: not compared with previous ECG Rhythm: sinus rhythm and sinus bradycardia BPM: 56 Conduction: conduction normal ST Segments: ST segments normal T Waves: T waves normal normal ND interval QT Interval: 514 Clinical impression: non-specific ECG and sinus bradycardia * ED Update Note - Mary Mesa PA-C - 03/20/2023 10:18 AM EDT I resumed care of this patient after Dr. Mariel Gagnon. No acute abnormalities noted on CT scan. Symptomatic therapy given here. Patient is still feeling unwell. Still complaining of nausea, chest pain, abdominal pain, dizziness. Discussed this patient with the hospitalist and she will be admitted for further evaluation and treatment. documented in this [id number] Note* Quick Note - Alta Teague RN - 03/22/2023 4:20 PM EDT Patient educated on discharge instructions including need for follow up, new medications, and symptoms to monitor for. Port heparinized and de-accessed. No further questions. [id number] Hospital course Narrative* Benito Jewell MD - 03/22/2023 1:34 PM EDT [facility] [place] -- [facility] Kathleen Villa Admitted: 03/20/2023 Discharge Date: 03/22/23 PCP Handoff Recommended Outpatient Testing Follow-up with PCP Results Pending At Discharge None Clinical Summary Assessment and Plan Kathleen Villa is a 27 y.o. female patient of Marfan syndrome, thoracic aortic aneurysm status postrepair, and type 1 diabetes mellitus (on insulin pump). She is admitted on 03/20/2023 with chief complaint of nauseousness and vomiting. Intractable nausea/vomiting Gastroparesis Leukocytosis likely reactive CT scan of chest abdomen and pelvis reviewed with no acute abnormalities Advance diet as tolerated Discharge the patient on Carafate, Protonix, and Reglan Type 1 diabetes: Hyperglycemia Hypoglycemia 03/22/2023 With insulin pump malfunction in ED dislodged during CT per patient. Insulin pump dislodged in ED Glargine 20 units twice daily on admission (patient reporting total basal dose of approximately 50 units daily on insulin pump) Sliding scale insulin Endocrine consulted, appreciate recommendations. The patient was restarted on the insulin pump and developed hypoglycemia. Endocrinology are following. At this time, the patient is not hypoglycemic. Discharge the patient on the insulin pump Hypokalemia Hypophosphatemia Replete electrolytes as needed Discharge Medications Discharge Medications New Medications Details metoclopramide 10 MG tablet Commonly known as: REGLAN Take 1 (one) tablet (10 mg total) by mouth 4 (four) times a day with meals and nightly . Quantity: 120 tablet pantoprazole 40 MG tablet Commonly known as: PROTONIX Take 1 (one) tablet (40 mg total) by mouth daily . Quantity: 30 tablet sucralfate 1 gram tablet Commonly known as: CARAFATE Take 1 (one) tablet (1 g total) by mouth 4 (four) times a day before meals . Quantity: 120 tablet Medications To Continue Details HumaLOG U-100 Insulin 100 unit/mL injection Generic drug: insulin lispro use IN THE INSULIN PUMP FOR A TOTAL DAILY DOSE OF 100 UNITS Physician(s) Follow Up: No follow-up provider specified. Condition at Discharge: Stable Disposition: Home I reviewed discharge recommendations with the patient in person. Patient instructions, including activity, were given to the patient/family at discharge. On day of discharge I saw Kathleen Villa and spent: > 30 minutes on discharge. Completed by: Benito Jewell on 03/22/23, 1:34 PM documented in this [id number] Note* Plan of Care - Alta Teague RN - 03/22/2023 11:21 AM EDT Advance diet as tolerated today. Problem: Actual or potential alteration in health Goal: Absence of healthcare acquired conditions Outcome: Partially Met Goal: Knowledge of Interdisciplinary Plan of Care Outcome: Partially Met Goal: Knowledge of Enviroment Outcome: Partially Met Problem: Pain Goal: Manage acute pain Outcome: Partially Met Goal: Manage chronic pain Outcome: Partially Met Goal: Reduced pain sensation Outcome: Partially Met Goal: Achievement of comfort function goal Outcome: Partially Met [id number] History of Present illness Narrative* Benito Jewell MD - 03/22/2023 8:36 AM EDT [facility]GRESS [place] Assessment and Plan Kathleen Villa is a 27 y.o. female patient of Marfan syndrome, thoracic aortic aneurysm status postrepair, and type 1 diabetes mellitus (on insulin pump). She is admitted on 03/20/2023 with chief complaint of nauseousness and vomiting. Intractable nausea/vomiting Gastroparesis Leukocytosis likely reactive CT scan of chest abdomen and pelvis reviewed with no acute abnormalities Advance diet as tolerated As needed Compazine Scheduled Carafate with meals and IV Protonix twice daily Type 1 diabetes: Hyperglycemia Hypoglycemia 03/22/2023 With insulin pump malfunction in ED dislodged during CT per patient. Insulin pump dislodged in ED Glargine 20 units twice daily on admission (patient reporting total basal dose of approximately 50 units daily on insulin pump) Sliding scale insulin Endocrine consulted, appreciate recommendations. The patient was restarted on the insulin pump and developed hypoglycemia. Endocrinology are following. At this time, the patient is not hypoglycemic. Hypokalemia Hypophosphatemia Replete electrolytes as needed Disposition Estimated Discharge Date: 03/22 Discharge Location: Home Outpatient Testing: Quality Measures DVT Prophylaxis: lovenox Cortez Catheter: absent Code Status Full Code; code status verified on 03/21/2023 with patient (capacity intact) Primary Contact Information Subjective Patient resting comfortably states her abdominal pain nausea is better today. Denies any concerns. Feels ready for discharge. She will try regular diet at lunch. Will discharge if tolerates diet. Objective BP 116/66 Pulse (!) 51 Temp 98.3 F (36.8 C) (Oral) Resp 16 Ht 5' 9 Wt 82.1 kg (181 lb) SpO2 96% BMI 26.73 kg/m Physical Examination General Appearance: alert; well appearing; in no acute distress HEENT: Head- normocephalic; Eyes- EOMI, sclera anicteric; Cardiovascular: regular rate and rhythm; normal S1, S2; no murmurs, rubs, clicks or gallops; peripheral edema absent Respiratory: lungs clear to auscultation; without wheezes, rales or rhonchi; on room air Abdomen: soft, non-tender, non-distended Neurological: oriented x 3; normal speech; no focal findings or movement disorder noted Musculoskeletal: no significant deformity or tenderness to palpation Skin: normal coloration Psych: normal mood and affect * Arlene Choudhary CNP - 03/22/2023 8:12 AM EDT Images from the original note were not included. Patient ID: Patient Name: Kathleen Villa Admit Date: 03/20/2023 MR #: [id number] : 1995 Current location: [facility] Physicians: Nya, Physician (Family); Dr Ireland (Referring) Reason for consult: Type 1 diabetes Assessment/Plan: Dx: Type 1 diabetes, under good control Currently taking as outpatient: Insulin Pump Humalog insulin 670G insulin pump 00:00 1.8 units/h Insulin to carb ratio: 1: 10 Sensitivity: 1: 30 Current Hemoglobin A1C= Lab Results Component Value Date HGBA1C 7.2 (H) 03/20/2023 NOTES: 03/21: Patient presented to the hospital on 03/20/2023 with nausea/vomiting. She has a history of gastroparesis. She also had some mild abdominal discomfort. During her evaluation in the emergency department she had an issue with her insulin pump, which caused some hyperglycemia. Her pump is now backup and running her blood sugars been fairly well controlled. She is not currently utilizing her sensor 03/22: BG and labs reviewed over the past 24hours. Patients BG has been well controlled on her current pump settings. Pump History was reviewed. She may get discharged today. Blood Glucoses: 03/20 ---406---284---245 03/21 113---80---102---179 03/22: 182 Plan: 1. Rx changes: see below Insulin Pump Continue current pump settings 03/22: CPM 2. Education: Reviewed ABCs of diabetes management (respective goals in parentheses): A1C (7.0-8.0), blood pressure (<130/80), and cholesterol (LDL <100). Referral to Diabetes Education Referral to Nutrition therapy Subjective: Brief HPI: Kathleen Villa is a 27 y.o. female patient with Marfan syndrome, thoracic aortic aneurysm status post repair, and type 1 diabetes mellitus (on insulin pump). She is admitted on 03/20/2023 with chief complaint of nausea and vomiting. To further elaborate patient reports 3-day history of nauseousness and vomiting. Nonbloody nonbilious. No melena. Also with generalized abdominal pain. No diarrhea. No fevers or chills. No chest painor syncopal episodes. In the ED blood pressure stable, satting appropriately on room air, and afebrile. Labs showing hyperglycemia to 316, beta hydroxybutyrate minimally elevated to 1.8 but no anion gap on chemistry. CT angiogram chest abdomen pelvis obtained while in the ED and without acute pathology. Given fluid boluses and antiemetics and admitted to [facility] for further management. While in the ER the patients insulinpump apparently became dislodged and her BG began to increase. Patient has had diabetes for 13 years. Diagnosed at the age of 14. Patient is currently on 670G insulin pump with guardian sensor. Her endocrinology practices in [facility]. She follows with them regularly. Her most recent hemoglobin A1c is 7.2%. Current monitoring regimen: home blood tests - 4 times daily Complications of diabetes include: Retinopathy: Positive: Background diabetic retinopathy Nephropathy: Negative Peripheral Neuropathy: Positive Autonomic Neuropathy: Positive history of gastroparesis Allergies: Allergies Allergen Reactions Zofran [Ondansetron Hcl] Other (See Comments) States she blacks out and loses control of my bladder Adhesive Tape-Silicones Rash Morphine Rash Percocet [Oxycodone-Acetaminophen] Rash Home Medications: Outpatient Medications Marked as Taking for the 03/20/23 encounter (Hospital Encounter): HumaLOG U-100 Insulin 100 unit/mL injection, use IN THE INSULIN PUMP FOR A TOTAL DAILY DOSE OF 100 UNITS Current Medications: enoxaparin (LOVENOX) injection 40 mg Subcutaneous Daily pantoprazole 40 mg Intravenous BID sodium chloride (PF) 5 mL Intravenous Q8H AMAIRANI sucralfate 1 g Oral 4x daily before meals acetaminophen, melatonin, nalOXone AND Notify physician AND naloxone, prochlorperazine (COMPAZINE) injection, promethazine, [COMPLETED] Insert peripheral IV AND Saline lock IV AND sodium chloride (PF) AND sodium chloride 0.9 %, Saline lock IV AND sodium chloride (PF) ANDsodium chloride (PF) AND sodium chloride 0.9 % Review of Systems: Review of Systems Constitutional: Negative for activity change, appetite change, fatigue and unexpected weight change. HENT: Negative. Negative for sore throat and trouble swallowing. Eyes: Negative. Respiratory: Negative for cough, chest tightness and shortness of breath. Cardiovascular: Negative for chest pain, palpitations and leg swelling. Gastrointestinal: Positive for nausea and vomiting. Negative for abdominal pain, constipation and diarrhea. Endocrine: Negative for cold intolerance, heat intolerance, polydipsia, polyphagia and polyuria. Genitourinary: Negative for dysuria and frequency. Musculoskeletal: Negative. Skin: Negative for rash and wound. Allergic/Immunologic: Negative. Neurological: Negative for numbness. Hematological: Negative. Psychiatric/Behavioral: Negative. History: Past Medical History: Diagnosis Date Diabetes mellitus (HCC) Gastroparesis Marfan syndrome Past Surgical History: Procedure Laterality Date CARDIAC SURGERY SECTION History reviewed. No pertinent family history. Social History Tobacco Use Smoking status: Never Smokeless tobacco: Never Substance Use Topics Alcohol use: Yes Comment: occasional Drug use: Yes Types: Marijuana The following portions of the patient's history were reviewed and updated as appropriate: allergies, current medications, past family history, past medical history, past social history, past surgicalhistory and problem list. Objective: BP 116/66 Pulse (!) 51 Temp 98.3 F (36.8 C) (Oral) Resp 16 Ht 5' 9 Wt 82.1 kg (181 lb) SpO2 96% BMI 26.73 kg/m Wt Readings from Last 3 Encounters: 03/20/23 82.1 kg (181 lb) Physical Exam: Physical Exam Constitutional: General: She is not in acute distress. Appearance: She is well-developed. HENT: Head: Normocephalic and atraumatic. Eyes: Conjunctiva/sclera: Conjunctivae normal. Pupils: Pupils are equal, round, and reactive to light. Neck: Thyroid: No thyromegaly. Cardiovascular: Rate and Rhythm: Normal rate and regular rhythm. Pulses: Dorsalis pedis pulses are 2+ on the right side and 2+ on the left side. Heart sounds: Normal heart sounds. No murmur heard. No friction rub. No gallop. Pulmonary: Effort: Pulmonary effort is normal. No respiratory distress. Breath sounds: Normal breath sounds. No wheezing or rales. Abdominal: General: Bowel sounds are normal. There is no distension. Palpations: Abdomen is soft. Tenderness: There is no abdominal tenderness. Musculoskeletal: General: No deformity. Normal range of motion. Cervical back: Normal range of motion and neck supple. Right foot: Normal. Normal range of motion. No swelling or deformity. Left foot: Normal. Normal range of motion. No swelling or deformity. Skin: General: Skin is warm and dry. Findings: No erythema or rash. Neurological: Mental Status: She is alert and oriented to person, place, and time. Psychiatric: Behavior: Behavior normal. Thought Content: Thought content normal. Judgment: Judgment normal. Laboratory Review: BP 116/66 Pulse (!) 51 Temp 98.3 F (36.8 C) (Oral) Resp 16 Ht 5' 9 Wt 82.1 kg (181 lb) SpO2 96% BMI 26.73 kg/m Lab Results Component Value Date HGBA1C 7.2 (H) 03/20/2023 Glucose (mg/dL) Date Value 03/22/2023 251 (H) Creatinine (mg/dL) Date Value 03/22/2023 0.81 No results found for: CHOL, TRIG, HDL, LDLCALC, LDL No results found for: TSH No results found for: FREET4 Lab Results Component Value Date WBC 9.41 03/22/2023 HGB 12.4 03/22/2023 HCT 37.4 03/22/2023 MCV 87.8 03/22/2023 PLT 165 03/22/2023 This SmartLink has not been configured with any valid records. This SmartLink has not been configured with any valid records. Laboratory and Additional Data Reviewed: Laboratory 03/22/23 8:12 AM Microbiology 03/22/23 8:12 AM Pathology 03/22/23 8:12 AM Radiology 03/22/23 8:12 AM Cardiology 03/22/23 8:12 AM Medications 03/22/23 8:12 AM Transcriptions 03/22/23 8:12 AM Thank you for this consultation, we will continue to follow this patient with you. Electronically signed by Arlene ALEGRIA 238:28 AM Arlene Choudhary CNP * Judith Edmondson MD - 03/21/2023 4:30 PM EDT [facility] PROGRESS NOTE Assessment and Plan Kathleen Villa is a 27 y.o. female patient of Marfan syndrome, thoracic aortic aneurysm status postrepair, and type 1 diabetes mellitus (on insulin pump). She is admitted on 03/20/2023 with chief complaint of nauseousness and vomiting. Intractable nausea/vomiting Gastroparesis Patient states she is feeling better Tolerating clear liquid diet Advanced diet to full liquid diet As needed Compazine Scheduled Carafate with meals and IV Protonix twice daily Type 1 diabetes: Hyperglycemia With insulin pump malfunction in ED dislodged during CT per patient. Insulin pump dislodged in ED 27.2 Glargine 20 units twice daily on admission (patient reporting total basal dose of approximately 50 units daily on insulin pump) Sliding scale insulin Endocrine consulted, appreciate recommendations Appreciate endocrinology input Disposition Estimated Discharge Date: 03/22 Discharge Location: d Outpatient Testing: Quality Measures DVT Prophylaxis: SCDs Cortez Catheter: absent Code Status Full Code; code status verified on 03/21/2023 with patient (capacity intact) Primary Contact Information Subjective Patient resting comfortably states her abdominal pain nausea is better today Discussed with endocrinology Objective BP 105/62 Pulse 80 Temp 98.7 F (37.1 C) (Oral) Resp 15 Ht 5' 9 Wt 82.1 kg (181 lb) SpO2 94% BMI 26.73 kg/m Physical Examination General Appearance: alert; well appearing; in no acute distress HEENT: Head- normocephalic; Eyes- EOMI, sclera anicteric; Throat- mucous membranes moist Cardiovascular: regular rate and rhythm; normal S1, S2; no murmurs, rubs, clicks or gallops; peripheral edema absent Respiratory: lungs clear to auscultation; without wheezes, rales or rhonchi; on room air Abdomen: soft, non-tender, non-distended Neurological: oriented x 3; normal speech; no focal findings or movement disorder noted Musculoskeletal: no significant deformity or tenderness to palpation Skin: normal coloration Psych: normal mood and affect * Ella Daly RN - 03/20/2023 9:55 AM EDT 03/20/23 0900 Patient Information Source of Information Patient;Chart Does Patient have a PCP? (No PCP noted in chart. Kathleen states that she follows with Dr. Stevens at [facility].) Care Plan Care Plan No documented in this [id number] Note* Quick Note - Liang Boothe RN - 03/22/2023 5:20 AM EDT 0355 pt complaining of feeling sick to her stomach and is sweaty so PSA obtained blood glucose level which was 42. This RN initiated the hypoglycemic order set and the patient was alert enough to eat/drink so 15g of glutose gel was given. Pt stated she gave herself 1.5 units of insulin through her insulin pump after eating a snack at 0046 and that must have dropped her. 0419 blood glucose recheck was 77. Pt was given a snack to maintain blood glucose and she stated she feels better at this time. Asked for PRN compazine at this time. 0516 blood glucose recheck was 168. Pt no longer feels sick. Will continue to monitor blood glucoseregularly. Pt resting in bed comfortably with no further needs at this time. [id number] Note* Plan of Care - Liang Boothe RN - 03/22/2023 12:15 AM EDT Problem: Actual or potential alteration in health Goal: Absence of healthcare acquired conditions Outcome: Partially Met Goal: Knowledge of Interdisciplinary Plan of Care Outcome: Partially Met Goal: Knowledge of Enviroment Outcome: Partially Met Problem: Pain Goal: Manage acute pain Outcome: Partially Met Goal: Manage chronic pain Outcome: Partially Met Goal: Reduced pain sensation Outcome: Partially Met Goal: Achievement of comfort function goal Outcome: Partially Met [id number] Note* Pharmacy Note - Felicia Montes RPh,PharmD - 03/21/2023 1:30 PM EDT Pharmacotherapy Note: CSII Pump Verification Pharmacist has inspected physical integrity of insulin. The following has been verified with the patient and / or patient's caregiver and by visual inspection: Type of Insulin used in pump: Insulin Lispro (Humalog). Patient is able to explain that the insulin and tubing are to be changed every 72 hours and that the infusion site is rotated with each refill. 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 She recently switched to Humalog and said the pump was refilled with brand new insulin before admission. Continue with insulin regimen as written. Please call pharmacy with any questions. Pharmacist: Felicia Montes Date: 03/21/2023 Contact Information: [phone] or Vocera [id number] Note* Plan of Care - Liang Boothe RN - 03/21/2023 1:19 AM EDT Problem: Actual or potential alteration in health Goal: Absence of healthcare acquired conditions Outcome: Partially Met Goal: Knowledge of Interdisciplinary Plan of Care Outcome: Partially Met Goal: Knowledge of Enviroment Outcome: Partially Met Problem: Pain Goal: Manage acute pain Outcome: Partially Met Goal: Manage chronic pain Outcome: Partially Met Goal: Reduced pain sensation Outcome: Partially Met Goal: Achievement of comfort function goal Outcome: Partially Met [id number] Note* Quick Note - Liang Purcell RN - 03/20/2023 6:32 PM EDT Admission skin assessment completed by this nurse and STIVEN Caceres. No skin issues identified at this time. T [id number] Note* Plan of Care - Liang Purcell RN - 03/20/2023 6:29 PM EDT Care plan started Problem: Actual or potential alteration in health Goal: Absence of healthcare acquired conditions Outcome: Partially Met Goal: Knowledge of Interdisciplinary Plan of Care Outcome: Partially Met Goal: Knowledge of Enviroment Outcome: Partially Met Problem: Pain Goal: Manage acute pain Outcome: Partially Met Goal: Manage chronic pain Outcome: Partially Met Goal: Reduced pain sensation Outcome: Partially Met Goal: Achievement of comfort function goal Outcome: Partially Met [id number] Note* ED Procedure Note - Siddharth Gagnon MD - 03/20/2023 4:45 PM EDTAssociated Order(s): ECG 12 Lead ECG 12 Lead Date/Time: 03/20/2023 4:45 PM Performed by: Siddharth Gagnon MD Authorized by: Mariel Gagnon MD Interpreted by ED attending physician Comparison: not compared with previous ECG Rhythm: sinus rhythm and sinus bradycardia BPM: 56 Conduction: conduction normal ST Segments: ST segments normal T Waves: T waves normal normal ND interval QT Interval: 514 Clinical impression: non-specific ECG and sinus bradycardia [facility] Work Phone: [phone] 385-747407-24-2023 Emergency department Note* Zee Chahal RN - 03/20/2023 11:22 AM EDT Bed: 36 Expected date: Expected time: Means of arrival: Comments: ROOM 14 [id number] Emergency department Note* Zee Chahal RN - 03/20/2023 11:22 AM EDT Bed: 36 Expected date: Expected time: Means of arrival: Comments: ROOM 14 * Mariel Gagnon MD - 03/20/2023 6:01 AM EDTAssociated Order(s): EKG 12-lead [facility] ATTENDING NOTE: NAME: Kathleen Villa CSN: [id number] 27 y.o. PCP: No, Physician History: Chief Complaint: Abdominal Pain and Emesis HPI: The history was obtained from the patient and friend. Kathleen is a 27 y.o. female with a history of gastroparesis, Marfan syndrome, diabetes, and 2 previous sections who presents with a chief complaint of Abdominal Pain and Emesis. She reports persistent nausea and vomiting since Monday morning. She is unable to keep anything down by mouth. She denies diarrhea. States she had a normal bowel movement yesterday morning. Complains of generalized abdominal pain and pain in the centerof her chest that have been present since she began vomiting PMHx: Past Medical History: Diagnosis Date Diabetes mellitus (HCC) Gastroparesis Marfan syndrome PMSx: Past Surgical History: Procedure Laterality Date CARDIAC SURGERY SECTION FAM. Hx: History reviewed. No pertinent family history. SOC. Hx: Social History Socioeconomic History Marital status: Single Tobacco Use Smoking status: Never Smokeless tobacco: Never Substance and Sexual Activity Alcohol use: Yes Comment: occasional Drug use: Yes Types: Marijuana MEDs: Previous Medications Medication Sig HumaLOG U-100 Insulin 100 unit/mL injection use IN THE INSULIN PUMP FOR A TOTAL DAILY DOSE OF 100 UNITS ALL: Allergies Allergen Reactions Zofran [Ondansetron Hcl] Other (See Comments) States she blacks out and loses control of my bladder Adhesive Tape-Silicones Rash Morphine Rash Percocet [Oxycodone-Acetaminophen] Rash ROS: Review of Systems Constitutional: Negative for chills, fever and unexpected weight change. HENT: Negative for ear pain, rhinorrhea and sore throat. Eyes: Negative for pain, redness and visual disturbance. Respiratory: Negative for cough, shortness of breath and wheezing. Cardiovascular: Positive for chest pain. Negative for palpitations and leg swelling. Gastrointestinal: Positive for abdominal pain, nausea and vomiting. Negative for constipation and diarrhea. Genitourinary: Negative for dysuria, hematuria and urgency. Musculoskeletal: Negative for arthralgias and joint swelling. Skin: Negative for rash. Neurological: Negative for dizziness, seizures and headaches. All other systems reviewed and are negative. Positives and pertinent negatives as per HPI. All other systems were reviewed and are negative. Physical Exam: Patient Vitals for the past 24 hrs: BP Temp Temp src Pulse Resp SpO2 03/21/23 1118 105/62 98.7 F (37.1 C) Oral 80 15 94 % 03/21/23 0814 (!) 112/58 98.5 F (36.9 C) Oral 67 16 92 % 03/21/23 0323 (!) 105/54 99.5 F (37.5 C) Oral 85 18 95 % 03/21/23 0052 128/73 -- -- -- -- -- 03/20/23 2349 (!) 94/50 -- -- -- -- -- 03/20/23 2336 (!) 92/43 98.6 F (37 C) Oral 64 18 95 % 03/20/23 1959 137/69 99.2 F (37.3 C) Axillary 89 16 97 % 03/20/23 1620 123/66 98.3 F (36.8 C) Oral (!) 54 16 98 % Physical Exam Vitals reviewed. Constitutional: Appearance: Normal appearance. She is well-developed. Comments: Dry heaving, appears uncomfortable HENT: Head: Normocephalic and atraumatic. Nose: Nose normal. Mouth/Throat: Mouth: Mucous membranes are moist. Eyes: General: No scleral icterus. Pupils: Pupils are equal, round, and reactive to light. Pupils are equal. Right eye: Pupil is round. Left eye: Pupil is round. Cardiovascular: Rate and Rhythm: Normal rate and regular rhythm. Pulses: Normal pulses. Heart sounds: Normal heart sounds. No murmur heard. No friction rub. No gallop. Musculoskeletal: Cervical back: Neck supple. Right lower leg: No swelling or tenderness. Left lower leg: No swelling or tenderness. Pulmonary: Effort: Pulmonary effort is normal. Breath sounds: Normal breath sounds. Chest: Comments: Left chest wall port is noted Abdominal: General: Bowel sounds are normal. Palpations: Abdomen is soft. Abdomen is not rigid. There is no pulsatile mass. Tenderness: There is generalized abdominal tenderness. There is no guarding or rebound. Skin: General: Skin is warm and dry. Capillary Refill: Capillary refill takes less than 2 seconds. Neurological: Mental Status: She is alert and oriented to person, place, and time. Laboratory & Radiological Imaging (if done): Labs Reviewed CHEM 7 - Abnormal; Notable for the following components: Result Value Glucose 247 (*) All other components within normal limits Narrative: [facility] has implemented the eGFR calculation approach that does not have a coefficient for race that conforms to the NKF-ASN Task Force Recommendations. LIPASE - Abnormal; Notable for the following components: Lipase 53 (*) All other components within normal limits URINALYSIS - Abnormal; Notable for the following components: Clarity, Urine Cloudy (*) Glucose, Urine >=500 (*) Ketones, Urine >=80 (*) All other components within normal limits Narrative: Microscopic examination is performed on all urinalysis samples and only positive findings are reported. The test for blood on the chemical analytic portion of urinalysis may also be positive due to hemoglobinuria and myoglobinuria and if red blood cells are present they are quantified by microscopic examination. BETA-HYDROXYBUTYRATE - Abnormal; Notable for the following components: Beta-Hydroxybutyrate 1.8 (*) All other components within normal limits BASIC METABOLIC PANEL - Abnormal; Notable for the following components: Glucose 316 (*) Calcium 8.1 (*) All other components within normal limits Narrative: [facility] has implemented the eGFR calculation approach that does not have a coefficient for race that conforms to the NKF-ASN Task Force Recommendations. HEMOGLOBIN A1C - Abnormal; Notable for the following components: Hemoglobin A1C 7.2 (*) Estimated Average Glucose 160 (*) All other components within normal limits Narrative: Normal: 4.0% - 5.6% Increased risk for diabetes: 5.7% - 6.4% Diabetes: >= 6.5% Pediatrics: No established reference range Estimated average glucose: 68-114 mg/dL CBC - Abnormal; Notable for the following components: WBC 20.82 (*) Hemoglobin 11.7 (*) Hematocrit 35.7 (*) MPV 12.9 (*) All other components within normal limits COMPREHENSIVE METABOLIC PANEL - Abnormal; Notable for the following components: Chloride 111 (*) Bicarbonate 18 (*) Glucose 162 (*) All other components within normal limits Narrative: [facility] has implemented the eGFR calculation approach that does not have a coefficient for race that conforms to the NKF-ASN Task Force Recommendations. POC GLUCOSE - RALS - Abnormal; Notable for the following components: Glucose 406 (*) All other components within normal limits Narrative: Critical result acted upon time of test. Test performed at bedside. POC GLUCOSE - RALS - Abnormal; Notable for the following components: Glucose 284 (*) All other components within normal limits POC GLUCOSE - RALS - Abnormal; Notable for the following components: Glucose 245 (*) All other components within normal limits POC GLUCOSE - RALS - Abnormal; Notable for the following components: Glucose 113 (*) All other components within normal limits CBC WITH AUTO DIFFERENTIAL - Abnormal; Notable for the following components: MPV 12.5 (*) Neutrophils Abs 7.17 (*) All other components within normal limits HEPATIC FUNCTION PANEL - Normal HCG, SERUM, QUALITATIVE - Normal Narrative: Negative: The result is less than or equal to 5 mIU/mL of HCG. MAGNESIUM LEVEL - Normal MAGNESIUM LEVEL - Normal PHOSPHORUS - Normal POC GLUCOSE - RALS - Normal CBC AND DIFFERENTIAL Narrative: The following orders were created for panel order CBC w/ Diff. Procedure Abnormality Status --------- ------ CBC Auto Differential[[id number]] Abnormal Final result Please view results for these tests on the individual orders. DRUGS OF ABUSE SCREEN, URINE POC GLUCOSE CT Angiogram Chest Abdomen Pelvis Final Result 1. No acute thoracoabdominal aortic pathology. No aneurysm. 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 2. No acute cardiopulmonary abnormality. No airspace opacities or pleural fluid. 3. No acute intraabdominal or pelvic pathology. Specifically, no signs of bowel or urinary tract obstruction, free air, free fluid or abnormal dilation of large or small bowel. Note made of prior appendectomy surgical clips. NTP/cdr Workstation ID: [id number] Procedures: EKG 12-lead Date/Time: 03/20/2023 6:02 AM Performed by: Mariel Gagnon MD Authorized by: Mariel Gagnon MD Interpreted by ED attending physician Rhythm: sinus rhythm BPM: 73 QRS axis: normal Clinical impression: normal ECG ED Course / Medical Decision Making: I did personally review Kathleen's past medical history, surgical history, social history, as well as family history (when relevant). In this case, I also oversaw the her drug management by reviewingher medication list, allergy list, as well as the medications that I prescribed during the ED course and/or recommended as an out-patient (including possible OTC medications such as acetaminophen, NSAIDs , etc). Her past medical problem list included: Active Ambulatory Problems Diagnosis Date Noted No Active Ambulatory Problems Resolved Ambulatory Problems Diagnosis Date Noted No Resolved Ambulatory Problems Past Medical History: Diagnosis Date Diabetes mellitus (HCC) Gastroparesis Marfan syndrome ED MEDICATIONS GIVEN: Medications sodium chloride (PF) (NS) flush 5 mL (has no administration in time range) And sodium chloride 0.9% (NS) (has no administration in time range) haloperidol lactate (HALDOL) injection 0.25 mg (0.25 mg Intramuscular Not Given 03/20/23 0500) HYDROmorphone (DILAUDID) injection 0.5 mg (0.5 mg Intravenous Not Given 03/20/23 0540) sodium chloride (PF) (NS) flush 5 mL (has no administration in time range) And sodium chloride (PF) (NS) flush 5 mL (5 mL Intravenous Not Given 03/21/23 0600) And sodium chloride 0.9% (NS) (has no administration in time range) acetaminophen (TYLENOL) tablet 650 mg (has no administration in time range) melatonin tablet 3 mg (has no administration in time range) enoxaparin (LOVENOX) syringe 40 mg (40 mg Subcutaneous Given 03/21/23 0944) lactated Ringers infusion (100 mL/hr Intravenous New Bag 03/20/23 1805) naloxone (NARCAN) injection 0.1 mg (has no administration in time range) And naloxone (NARCAN) injection 0.4 mg (has no administration in time range) pantoprazole (PROTONIX) injection 40 mg (40 mg Intravenous Given 03/21/23 0944) sucralfate (CARAFATE) tablet 1 g (1 g Oral Given 03/21/23 1150) prochlorperazine (COMPAZINE) injection 10 mg (10 mg Intravenous Given 03/21/23 1150) promethazine (PHENERGAN) suppository 12.5 mg (has no administration in time range) subcutaneous insulin pump Misc (has no administration in time range) prochlorperazine (COMPAZINE) injection 10 mg (10 mg Intravenous Given 03/20/23 0319) sodium chloride 0.9% (NS) bolus 500 mL (0 mL Intravenous Stopped 03/20/23 0541) sodium chloride (PF) (NS) 0.9 % contrast line flush 10 mL (10 mL Intravenous Given 03/20/23 0806) And sodium chloride (PF) (NS) 0.9 % contrast line flush 80 mL (80 mL Intravenous Given 03/20/23 0804) iopamidoL (ISOVUE-370) 370 mg iodine /mL (76 %) injection 75 mL (75 mL Intravenous Contrast Administered 03/20/23 0803) sodium chloride 0.9% (NS) bolus 1,000 mL (0 mL Intravenous Stopped 03/20/23 1026) HYDROmorphone (DILAUDID) injection 0.25 mg (0.25 mg Intravenous Given 03/20/23 1257) promethazine (PHENERGAN) suppository 12.5 mg (12.5 mg Rectal Given 03/20/23 2324) After reviewing the items above, I did look at previous medical documentation, such as recent hospitalizations, office visits, and/or recent consultations with PCP/specialist. SDOH: Another factor that I considered in Kathleen's care was her Social Determinants of Health (SDOH). During this ED encounter, she DID have issues that complicated the ED care today which includedno Primary Care Provider. LAB TESTING: Ancillary lab testing: Chem-7 is normal with the exception of hyperglycemia with a glucose of 247. Lipase is normal. Urinalysis contains glucose and ketones but is negative for infection. White blood cell count is normal. LFTs are normal. is negative. Magnesium is normal. CBCis normal. EKG is normal. RADIOLOGY: I did consider radiological studies for [facility] care today: CTA of the chest, abdomen, and pelvis is pending DIFFERENTIAL DIAGNOSES: Some general clinical impressions that I considered included gastroparesis,cyclic vomiting, cannabis hyperemesis, cholelithiasis, cholecystitis, esophagitis, gastritis, aortic dissection, GERD, peptic ulcer disease, appendicitis ED COURSE: At the conclusion of my shift, CTA of the chest, abdomen, and pelvis is still pending. Her care was transitioned to the next emergency provider until an appropriate disposition can be determined based on pending test results. She has required multiple doses of IV antiemetics in the emergency department and continues to have persistent nausea for me. Based on the medication and/or treatment that our team has rendered to this patient, their medical condition has stabilized. I recognize that there are risks with hospitalization (such as nosocomial infections, falls, thromboembolic disease, etc) as well as being discharged (worsening of condition,including cardiopulmonary arrest). However, in my medical opinion with the clinical information available to me at the time of this decision, I believe the best disposition for Kathleen is still pending. Clinical Impression: 1. Hyperglycemia 2. Ketonuria 3. Nausea and vomiting, unspecified vomiting type 4. Abdominal pain, unspecified abdominal location 5. Chest pain, unspecified type 6. Bradycardia Disposition: ED Disposition ED Disposition Hospitalize Condition -- Comment Reason for inpatient over two midnights: Intractable nausea and vomiting New Prescriptions This print group is not available in inpatient encounters. 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 Mariel Gagnon MD ED Attending Physician [facility] (Please note that portions of this note have been completed with a voice recognition software. Efforts were made to correct any errors, but occasionally words are mis-transcribed.) Mariel Gagnon MD 03/21/23 1439 * Tony Hernandez RN - 03/20/2023 4:26 AM EDT PT STATES THAT SHE CAN NOT PROVIDE URINE SAMPLE AND SHE NEEDS STRAIGHT CATH PERFORMED. * Queta Arias RN - 03/20/2023 2:17 AM EDT Pt c/o vomiting and abdominal pain that started today, also c/o chest pain, states last bgl was 217about an hour ago documented in this [id number] History and physical note* Ernie Ireland MD - 03/20/2023 11:17 AM EDT [facility] Patient Name: Kathleen Villa : 1995 MR #: [id number] Admit Date: 03/20/2023 Physicians: No, Physician (Family); No ref. provider found (Referring) Kathleen Villa is a 27 y.o. female patient of Marfan syndrome, thoracic aortic aneurysm status postrepair, and type 1 diabetes mellitus (on insulin pump). She is admitted on 03/20/2023 with chief complaint of nauseousness and vomiting. Intractable nausea/vomiting Suspected gastroenteritis With 3-day history of intractable nausea/vomiting. CT abdomen pelvis in the ED nonacute. Suspect most likely gastroenteritis. History of type 1 diabetes noted but no anion gap on chemistry. Status post fluid bolus in ED, continue maintenance IV fluids on admission Clear diet, advance as tolerated As needed Compazine Scheduled Carafate with meals and IV Protonix twice daily Type 1 diabetes: Hyperglycemia With insulin pump malfunction in ED dislodged during CT per patient. Insulin pump dislodged in ED Check A1c Glargine 20 units twice daily on admission (patient reporting total basal dose of approximately 50 units daily on insulin pump) Sliding scale insulin Endocrine consulted, appreciate recommendations. Residence prior to admission: house or apartment Was patient transferred from outlying hospital or ED no Quality Measures DVT Prophylaxis: lovenox Cortez Catheter: absent Medication Reconciliation: Verified Risk variables present on admission: None. Please see assessment and plan for further details. Code Status Full Code; unverified Chief Complaint nausea/vomiting History of Present Illness Kathleen Villa is a 27 y.o. female patient of Marfan syndrome, thoracic aortic aneurysm status post repair, and type 1 diabetes mellitus (on insulin pump). She is admitted on 03/20/2023 with chief complaint of nauseousness and vomiting. To further elaborate patient reports 3-day history of nauseousness and vomiting. Nonbloody nonbilious. No melena. Also with generalized abdominal pain. No diarrhea. No fevers or chills. No chest painor syncopal episodes. In the ED blood pressure stable, satting appropriately on room air, and afebrile. Labs showing hyperglycemia to 316, beta hydroxybutyrate minimally elevated to 1.8 but no anion gap on chemistry. CT angiogram chest abdomen pelvis obtained while in the ED and without acute pathology. Given fluid boluses and antiemetics and admitted to [facility] for further management. Past Medical History Past Medical History: Diagnosis Date Diabetes mellitus (HCC) Gastroparesis Marfan syndrome Past Surgical History Past Surgical History: Procedure Laterality Date CARDIAC SURGERY SECTION Family History History reviewed. No pertinent family history. Social History Social History Tobacco Use Smoking Status Never Smokeless Tobacco Never Social History Substance and Sexual Activity Alcohol Use Yes Comment: occasional Social History Substance and Sexual Activity Drug Use Yes Types: Marijuana Allergy Information I have reviewed the patient's allergies. Zofran [ondansetron hcl], Adhesive tape-silicones, Morphine, and Percocet [oxycodone-acetaminophen] Home Medications Home medications were reviewed. Review Of Systems All relevant systems have been reviewed and are negative except as noted in HPI or below Physical Examination BP (!) 109/47 Pulse (!) 55 Temp 98.1 F (36.7 C) (Axillary) Resp 13 Ht 5' 9 Wt 82.1 kg (181 lb) SpO2 92% BMI 26.73 kg/m General Appearance: alert; well appearing; in no acute distress HEENT: Head- normocephalic; Eyes- EOMI, sclera anicteric; Throat- mucous membranes moist Cardiovascular: regular rate and rhythm; normal S1, S2; no murmurs, rubs, clicks or gallops; peripheral edema absent Respiratory: lungs clear to auscultation; without wheezes, rales or rhonchi; on room air Abdomen: soft, non-tender, non-distended Neurological: oriented x 3; normal speech; no focal findings or movement disorder noted Musculoskeletal: no significant deformity or tenderness to palpation Skin: normal coloration Psych: normal mood and affect [id number] History and physical note* Ernie Ireland MD - 03/20/2023 11:17 AM EDT [facility] [place] [facility] -- [facility] Patient Name: Kathleen Villa : 1995 MR #: [id number] Admit Date: 03/20/2023 Physicians: No, Physician (Family); No ref. provider found (Referring) Kathleen Villa is a 27 y.o. female patient of Marfan syndrome, thoracic aortic aneurysm status postrepair, and type 1 diabetes mellitus (on insulin pump). She is admitted on 03/20/2023 with chief complaint of nauseousness and vomiting. Intractable nausea/vomiting Suspected gastroenteritis With 3-day history of intractable nausea/vomiting. CT abdomen pelvis in the ED nonacute. Suspect most likely gastroenteritis. History of type 1 diabetes noted but no anion gap on chemistry. Status post fluid bolus in ED, continue maintenance IV fluids on admission Clear diet, advance as tolerated As needed Compazine Scheduled Carafate with meals and IV Protonix twice daily Type 1 diabetes: Hyperglycemia With insulin pump malfunction in ED dislodged during CT per patient. Insulin pump dislodged in ED Check A1c Glargine 20 units twice daily on admission (patient reporting total basal dose of approximately 50 units daily on insulin pump) Sliding scale insulin Endocrine consulted, appreciate recommendations. Residence prior to admission: house or apartment Was patient transferred from outlying hospital or ED no Quality Measures DVT Prophylaxis: lovenox Cortez Catheter: absent Medication Reconciliation: Verified Risk variables present on admission: None. Please see assessment and plan for further details. Code Status Full Code; unverified Chief Complaint nausea/vomiting History of Present Illness Kathleen Villa is a 27 y.o. female patient of Marfan syndrome, thoracic aortic aneurysm status post repair, and type 1 diabetes mellitus (on insulin pump). She is admitted on 03/20/2023 with chief complaint of nauseousness and vomiting. To further elaborate patient reports 3-day history of nauseousness and vomiting. Nonbloody nonbilious. No melena. Also with generalized abdominal pain. No diarrhea. No fevers or chills. No chest painor syncopal episodes. In the ED blood pressure stable, satting appropriately on room air, and afebrile. Labs showing hyperglycemia to 316, beta hydroxybutyrate minimally elevated to 1.8 but no anion gap on chemistry. CT angiogram chest abdomen pelvis obtained while in the ED and without acute pathology. Given fluid boluses and antiemetics and admitted to [facility] for further management. Past Medical History Past Medical History: Diagnosis Date Diabetes mellitus (HCC) Gastroparesis Marfan syndrome Past Surgical History Past Surgical History: Procedure Laterality Date CARDIAC SURGERY SECTION Family History History reviewed. No pertinent family history. Social History Social History Tobacco Use Smoking Status Never Smokeless Tobacco Never Social History Substance and Sexual Activity Alcohol Use Yes Comment: occasional Social History Substance and Sexual Activity Drug Use Yes Types: Marijuana Allergy Information I have reviewed the patient's allergies. Zofran [ondansetron hcl], Adhesive tape-silicones, Morphine, and Percocet [oxycodone-acetaminophen] Home Medications Home medications were reviewed. Review Of Systems All relevant systems have been reviewed and are negative except as noted in HPI or below Physical Examination BP (!) 109/47 Pulse (!) 55 Temp 98.1 F (36.7 C) (Axillary) Resp 13 Ht 5' 9 Wt 82.1 kg (181 lb) SpO2 92% BMI 26.73 kg/m General Appearance: alert; well appearing; in no acute distress HEENT: Head- normocephalic; Eyes- EOMI, sclera anicteric; Throat- mucous membranes moist Cardiovascular: regular rate and rhythm; normal S1, S2; no murmurs, rubs, clicks or gallops; peripheral edema absent Respiratory: lungs clear to auscultation; without wheezes, rales or rhonchi; on room air Abdomen: soft, non-tender, non-distended Neurological: oriented x 3; normal speech; no focal findings or movement disorder noted Musculoskeletal: no significant deformity or tenderness to palpation Skin: normal coloration Psych: normal mood and affect documented in this [id number] Note* ED Update Note - Mary Mesa PA-C - 03/20/2023 10:18 AM EDT I resumed care of this patient after Dr. Mariel Gagnon. No acute abnormalities noted on CT scan. Symptomatic therapy given here. Patient is still feeling unwell. Still complaining of nausea, chest pain, abdominal pain, dizziness. Discussed this patient with the hospitalist and she will be admitted for further evaluation and treatment. [id number] Physician Emergency department Note* Mariel Gagnon MD - 03/20/2023 6:01 AM EDTAssociated Order(s): EKG 12-lead [facility] ATTENDING NOTE: NAME: Kathleen Villa CSN: [id number] 27 y.o. PCP: No, Physician History: Chief Complaint: Abdominal Pain and Emesis HPI: The history was obtained from the patient and friend. Kathleen is a 27 y.o. female with a history of gastroparesis, Marfan syndrome, diabetes, and 2 previous sections who presents with a chief complaint of Abdominal Pain and Emesis. She reports persistent nausea and vomiting since Monday morning. She is unable to keep anything down by mouth. She denies diarrhea. States she had a normal bowel movement yesterday morning. Complains of generalized abdominal pain and pain in the centerof her chest that have been present since she began vomiting PMHx: Past Medical History: Diagnosis Date Diabetes mellitus (HCC) Gastroparesis Marfan syndrome PMSx: Past Surgical History: Procedure Laterality Date CARDIAC SURGERY SECTION FAM. Hx: History reviewed. No pertinent family history. SOC. Hx: Social History Socioeconomic History Marital status: Single Tobacco Use Smoking status: Never Smokeless tobacco: Never Substance and Sexual Activity Alcohol use: Yes Comment: occasional Drug use: Yes Types: Marijuana MEDs: Previous Medications Medication Sig HumaLOG U-100 Insulin 100 unit/mL injection use IN THE INSULIN PUMP FOR A TOTAL DAILY DOSE OF 100 UNITS ALL: Allergies Allergen Reactions Zofran [Ondansetron Hcl] Other (See Comments) States she blacks out and loses control of my bladder Adhesive Tape-Silicones Rash Morphine Rash Percocet [Oxycodone-Acetaminophen] Rash ROS: Review of Systems Constitutional: Negative for chills, fever and unexpected weight change. HENT: Negative for ear pain, rhinorrhea and sore throat. Eyes: Negative for pain, redness and visual disturbance. Respiratory: Negative for cough, shortness of breath and wheezing. Cardiovascular: Positive for chest pain. Negative for palpitations and leg swelling. Gastrointestinal: Positive for abdominal pain, nausea and vomiting. Negative for constipation and diarrhea. Genitourinary: Negative for dysuria, hematuria and urgency. Musculoskeletal: Negative for arthralgias and joint swelling. Skin: Negative for rash. Neurological: Negative for dizziness, seizures and headaches. All other systems reviewed and are negative. Positives and pertinent negatives as per HPI. All other systems were reviewed and are negative. Physical Exam: Patient Vitals for the past 24 hrs: BP Temp Temp src Pulse Resp SpO2 03/21/23 1118 105/62 98.7 F (37.1 C) Oral 80 15 94 % 03/21/23 0814 (!) 112/58 98.5 F (36.9 C) Oral 67 16 92 % 03/21/23 0323 (!) 105/54 99.5 F (37.5 C) Oral 85 18 95 % 03/21/23 0052 128/73 -- -- -- -- -- 03/20/23 2349 (!) 94/50 -- -- -- -- -- 03/20/23 2336 (!) 92/43 98.6 F (37 C) Oral 64 18 95 % 03/20/23 1959 137/69 99.2 F (37.3 C) Axillary 89 16 97 % 03/20/23 1620 123/66 98.3 F (36.8 C) Oral (!) 54 16 98 % Physical Exam Vitals reviewed. Constitutional: Appearance: Normal appearance. She is well-developed. Comments: Dry heaving, appears uncomfortable HENT: Head: Normocephalic and atraumatic. Nose: Nose normal. Mouth/Throat: Mouth: Mucous membranes are moist. Eyes: General: No scleral icterus. Pupils: Pupils are equal, round, and reactive to light. Pupils are equal. Right eye: Pupil is round. Left eye: Pupil is round. Cardiovascular: Rate and Rhythm: Normal rate and regular rhythm. Pulses: Normal pulses. Heart sounds: Normal heart sounds. No murmur heard. No friction rub. No gallop. Musculoskeletal: Cervical back: Neck supple. Right lower leg: No swelling or tenderness. Left lower leg: No swelling or tenderness. Pulmonary: Effort: Pulmonary effort is normal. Breath sounds: Normal breath sounds. Chest: Comments: Left chest wall port is noted Abdominal: General: Bowel sounds are normal. Palpations: Abdomen is soft. Abdomen is not rigid. There is no pulsatile mass. Tenderness: There is generalized abdominal tenderness. There is no guarding or rebound. Skin: General: Skin is warm and dry. Capillary Refill: Capillary refill takes less than 2 seconds. Neurological: Mental Status: She is alert and oriented to person, place, and time. Laboratory & Radiological Imaging (if done): Labs Reviewed CHEM 7 - Abnormal; Notable for the following components: Result Value Glucose 247 (*) All other components within normal limits Narrative: [facility] has implemented the eGFR calculation approach that does not have a coefficient for race that conforms to the NKF-ASN Task Force Recommendations. LIPASE - Abnormal; Notable for the following components: Lipase 53 (*) All other components within normal limits URINALYSIS - Abnormal; Notable for the following components: Clarity, Urine Cloudy (*) Glucose, Urine >=500 (*) Ketones, Urine >=80 (*) All other components within normal limits Narrative: Microscopic examination is performed on all urinalysis samples and only positive findings are reported. The test for blood on the chemical analytic portion of urinalysis may also be positive due to hemoglobinuria and myoglobinuria and if red blood cells are present they are quantified by microscopic examination. BETA-HYDROXYBUTYRATE - Abnormal; Notable for the following components: Beta-Hydroxybutyrate 1.8 (*) All other components within normal limits BASIC METABOLIC PANEL - Abnormal; Notable for the following components: Glucose 316 (*) Calcium 8.1 (*) All other components within normal limits Narrative: [facility] has implemented the eGFR calculation approach that does not have a coefficient for race that conforms to the NKF-ASN Task Force Recommendations. HEMOGLOBIN A1C - Abnormal; Notable for the following components: Hemoglobin A1C 7.2 (*) Estimated Average Glucose 160 (*) All other components within normal limits Narrative: Normal: 4.0% - 5.6% Increased risk for diabetes: 5.7% - 6.4% Diabetes: >= 6.5% Pediatrics: No established reference range Estimated average glucose: 68-114 mg/dL CBC - Abnormal; Notable for the following components: WBC 20.82 (*) Hemoglobin 11.7 (*) Hematocrit 35.7 (*) MPV 12.9 (*) All other components within normal limits COMPREHENSIVE METABOLIC PANEL - Abnormal; Notable for the following components: Chloride 111 (*) Bicarbonate 18 (*) Glucose 162 (*) All other components within normal limits Narrative: [facility] has implemented the eGFR calculation approach that does not have a coefficient for race that conforms to the NKF-ASN Task Force Recommendations. POC GLUCOSE - RALS - Abnormal; Notable for the following components: Glucose 406 (*) All other components within normal limits Narrative: Critical result acted upon time of test. Test performed at bedside. POC GLUCOSE - RALS - Abnormal; Notable for the following components: Glucose 284 (*) All other components within normal limits POC GLUCOSE - RALS - Abnormal; Notable for the following components: Glucose 245 (*) All other components within normal limits POC GLUCOSE - RALS - Abnormal; Notable for the following components: Glucose 113 (*) All other components within normal limits CBC WITH AUTO DIFFERENTIAL - Abnormal; Notable for the following components: MPV 12.5 (*) Neutrophils Abs 7.17 (*) All other components within normal limits HEPATIC FUNCTION PANEL - Normal HCG, SERUM, QUALITATIVE - Normal Narrative: Negative: The result is less than or equal to 5 mIU/mL of HCG. MAGNESIUM LEVEL - Normal MAGNESIUM LEVEL - Normal PHOSPHORUS - Normal POC GLUCOSE - RALS - Normal CBC AND DIFFERENTIAL Narrative: The following orders were created for panel order CBC w/ Diff. Procedure Abnormality Status --------- ------ CBC Auto Differential[[id number]] Abnormal Final result Please view results for these tests on the individual orders. DRUGS OF ABUSE SCREEN, URINE POC GLUCOSE CT Angiogram Chest Abdomen Pelvis Final Result 1. No acute thoracoabdominal aortic pathology. No aneurysm. 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 2. No acute cardiopulmonary abnormality. No airspace opacities or pleural fluid. 3. No acute intraabdominal or pelvic pathology. Specifically, no signs of bowel or urinary tract obstruction, free air, free fluid or abnormal dilation of large or small bowel. Note made of prior appendectomy surgical clips. [facility]/cdr Workstation ID: [id number] Procedures: EKG 12-lead Date/Time: 03/20/2023 6:02 AM Performed by: Mariel Gagnon MD Authorized by: Mariel Gagnon MD Interpreted by ED attending physician Rhythm: sinus rhythm BPM: 73 QRS axis: normal Clinical impression: normal ECG ED Course / Medical Decision Making: I did personally review Kathleen's past medical history, surgical history, social history, as well as family history (when relevant). In this case, I also oversaw the her drug management by reviewingher medication list, allergy list, as well as the medications that I prescribed during the ED course and/or recommended as an out-patient (including possible OTC medications such as acetaminophen, NSAIDs , etc). Her past medical problem list included: Active Ambulatory Problems Diagnosis Date Noted No Active Ambulatory Problems Resolved Ambulatory Problems Diagnosis Date Noted No Resolved Ambulatory Problems Past Medical History: Diagnosis Date Diabetes mellitus (HCC) Gastroparesis Marfan syndrome ED MEDICATIONS GIVEN: Medications sodium chloride (PF) (NS) flush 5 mL (has no administration in time range) And sodium chloride 0.9% (NS) (has no administration in time range) haloperidol lactate (HALDOL) injection 0.25 mg (0.25 mg Intramuscular Not Given 03/20/23 0500) HYDROmorphone (DILAUDID) injection 0.5 mg (0.5 mg Intravenous Not Given 03/20/23 0540) sodium chloride (PF) (NS) flush 5 mL (has no administration in time range) And sodium chloride (PF) (NS) flush 5 mL (5 mL Intravenous Not Given 03/21/23 0600) And sodium chloride 0.9% (NS) (has no administration in time range) acetaminophen (TYLENOL) tablet 650 mg (has no administration in time range) melatonin tablet 3 mg (has no administration in time range) enoxaparin (LOVENOX) syringe 40 mg (40 mg Subcutaneous Given 03/21/23 0944) lactated Ringers infusion (100 mL/hr Intravenous New Bag 03/20/23 1805) naloxone (NARCAN) injection 0.1 mg (has no administration in time range) And naloxone (NARCAN) injection 0.4 mg (has no administration in time range) pantoprazole (PROTONIX) injection 40 mg (40 mg Intravenous Given 03/21/23 0944) sucralfate (CARAFATE) tablet 1 g (1 g Oral Given 03/21/23 1150) prochlorperazine (COMPAZINE) injection 10 mg (10 mg Intravenous Given 03/21/23 1150) promethazine (PHENERGAN) suppository 12.5 mg (has no administration in time range) subcutaneous insulin pump Misc (has no administration in time range) prochlorperazine (COMPAZINE) injection 10 mg (10 mg Intravenous Given 03/20/23 0319) sodium chloride 0.9% (NS) bolus 500 mL (0 mL Intravenous Stopped 03/20/23 0541) sodium chloride (PF) (NS) 0.9 % contrast line flush 10 mL (10 mL Intravenous Given 03/20/23 0806) And sodium chloride (PF) (NS) 0.9 % contrast line flush 80 mL (80 mL Intravenous Given 03/20/23 0804) iopamidoL (ISOVUE-370) 370 mg iodine /mL (76 %) injection 75 mL (75 mL Intravenous Contrast Administered 03/20/23 0803) sodium chloride 0.9% (NS) bolus 1,000 mL (0 mL Intravenous Stopped 03/20/23 1026) HYDROmorphone (DILAUDID) injection 0.25 mg (0.25 mg Intravenous Given 03/20/23 1257) promethazine (PHENERGAN) suppository 12.5 mg (12.5 mg Rectal Given 03/20/23 2324) After reviewing the items above, I did look at previous medical documentation, such as recent hospitalizations, office visits, and/or recent consultations with PCP/specialist. SDOH: Another factor that I considered in [facility] care was her Social Determinants of Health (SDOH). During this ED encounter, she DID have issues that complicated the ED care today which includedno Primary Care Provider. LAB TESTING: Ancillary lab testing: Chem-7 is normal with the exception of hyperglycemia with a glucose of 247. Lipase is normal. Urinalysis contains glucose and ketones but is negative for infection. White blood cell count is normal. LFTs are normal. is negative. Magnesium is normal. CBCis normal. EKG is normal. RADIOLOGY: I did consider radiological studies for [facility] care today: CTA of the chest, abdomen, and pelvis is pending DIFFERENTIAL DIAGNOSES: Some general clinical impressions that I considered included gastroparesis,cyclic vomiting, cannabis hyperemesis, cholelithiasis, cholecystitis, esophagitis, gastritis, aortic dissection, GERD, peptic ulcer disease, appendicitis ED COURSE: At the conclusion of my shift, CTA of the chest, abdomen, and pelvis is still pending. Her care was transitioned to the next emergency provider until an appropriate disposition can be determined based on pending test results. She has required multiple doses of IV antiemetics in the emergency department and continues to have persistent nausea for me. Based on the medication and/or treatment that our team has rendered to this patient, their medical condition has stabilized. I recognize that there are risks with hospitalization (such as nosocomial infections, falls, thromboembolic disease, etc) as well as being discharged (worsening of condition,including cardiopulmonary arrest). However, in my medical opinion with the clinical information available to me at the time of this decision, I believe the best disposition for Kathleen is still pending. Clinical Impression: 1. Hyperglycemia 2. Ketonuria 3. Nausea and vomiting, unspecified vomiting type 4. Abdominal pain, unspecified abdominal location 5. Chest pain, unspecified type 6. Bradycardia Disposition: ED Disposition ED Disposition Hospitalize Condition -- Comment Reason for inpatient over two midnights: Intractable nausea and vomiting New Prescriptions This print group is not available in inpatient encounters. 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 Mariel Gagnon MD ED Attending Physician [facility] (Please note that portions of this note have been completed with a voice recognition software. Efforts were made to correct any errors, but occasionally words are mis-transcribed.) Mariel Gagnon MD 03/21/23 [address] [facility] Work Phone: [phone] 634-365107-24-2023 Emergency department Note* Tony Hernandez RN - 03/20/2023 4:26 AM EDT PT STATES THAT SHE CAN NOT PROVIDE URINE SAMPLE AND SHE NEEDS STRAIGHT CATH PERFORMED. [id number] Emergency department Triage note* Queta Arias RN - 03/20/2023 2:17 AM EDT Pt c/o vomiting and abdominal pain that started today, also c/o chest pain, states last bgl was 217about an hour ago [id number] NotePatient Outreach ([facility]) KATHLEEN VILLA ([id number]) 1995 F T Date Time Provider Department 02/08/23 KYARA LUIS [facility] During your visit today, we recorded the following information about you: Kyara Luis RN 02/08/2023 11:44 AM Signed Provider Update: Patient Concerns: Needs from Physician/Office: Call Summary: Call placed to Kathleen Villa for transitional care management follow-up call. Spoke with patient, introduced self, explained role, discharge instructions and medications reviewed with patient. States that she has history of gastroparesis, follow up yesterday with GI and medication changes made, will moss picker new medication from her pharmacy. States that vomiting has resolved, tolerating diet, does have nausea and is on compazine and phenergan at home. Monitors blood sugar 5 times per day, FBS this am 131, has insulin pump and adjust according to carbohydrate intake. Currently waiting on continuous glucose monitor that was ordered at her last endocrinology appointment through [facility], patient calling today to follow up (has had in past), states all insulin pump supplies are provided by them as well. Declines need for further follow up, has my name and number if needs arise. Encouraged to reach out to PCP or specialty provider if new or worsening symptoms. APPOINTMENTS/SERVICES Reviewed follow up appointments per discharge summary. Yes Reviewed the following additional services: None SDOH With in the past 12 months, have you had any concerns with not having reliable transportation that has kept you from medical appointments or from getting things you needed for daily living? No Within the past 12 months, have you run out of food or been concerned that your were not going to be able to afford food? No MEDICATION REVIEW Confirmed patient able to obtain medications (new and/or refills): Yes Reviewed medications below in detail. Patient reports compliance with appropriate medications at this time. FOLLOW-UP Additional Concerns/ Needs: None Additional follow-up: None needed at this time Routed to PCP: No Patient identified by name and . TRANSITION CARE MANAGEMENT: Date of Outreach: 02/08/2023 02/06/2023 Outreach Attempt 1: Contact Not Made Contact Not Made Outreach Attempt 2: Contact Made - Date of Discharge 02/06/2023 - Some recent data might be hidden SUMMARY: -Admitted for: Vomiting/diabetic gastroparesis -Pt discharged from [facility] on 02/04. -Follow up appointment: Has had f/u with GI, declines sooner PCP appointment at this time . -Medication review completed. NEW OR CHANGED MEDICATIONS:NA MEDS HELD/DISCONTINUED:NA BRIEF HOSPITAL COURSE: 27-year-old white female who presented 2 days ago on 01/31 secondary to nausea and vomiting at home. Patient has a known history of diabetic gastroparesis. She follows in clinic [facility]. She was admitted to [place]. Unfortunately she has not been tolerating p.o. intake with the exception of some ice chips Patient would be started on insulin drip while in the ICU. Anion gap would close and the patient would be transitioined to a diet. Blood sugars would remain stable once restarting her insulin pump. She will cotninue following with her personal steward dishwasher outpatient. Follow up with PCP in one week. Vital signs were stable on discharge. Patient understood and agreed with discharge plan You may be receiving a survey about your experience. We really value your feedback. If you would fill out the survey, it would help us tremendously as we continue to improve. Kyara Luis RN February 08, 2023 11:36 AM Allergies As of Date: 02/08/2023 Noted Allergy Reaction PERCOCET (OXYCODONE-ACETAMINOPHEN)01/10/2014 2 - Rash 5 - Intolerance 9 - Itching ADHESIVE TAPE (ROSINS) 09/04/2013 2 - Rash INDOMETHACIN 11/20/2003 2 - Rash KEFLEX (CEPHALEXIN) 11/12/2013 14 - Other: See Comments Comments: Makes infection worse- patient denies this on 02/25/2014 MORPHINE 08/30/2013 2 - Rash 9 - Itching ZOFRAN (ONDANSETRON HCL (PF)) 01/14/2015 14 - Other: See Comments Comments: syncope ADHESIVE 11/07/2022 2 - Rash Date Reviewed: 02/07/2023 Reviewed by: Leticia Hylton DO - Fully Assessed Reason for Visit: Transition Of Care [4074] Prescriptions as of 02/08/2023 - lubiprostone (AMITIZA) 8 mcg capsule Take 1 capsule by mouth twice daily with meals. - insulin aspart U-100 (NOVOLOG U-100 INSULIN ASPART) 100 unit/mL Use in the Insulin pump for TDD of 100 units. - prochlorperazine (COMPAZINE) 10 mg tablet Take 1 tablet by mouth every 6 hours as needed. - Lancets (MICROLET LANCET) lancets Use as instructed to test blood sugar 4 times daily. E10.65 - blood sugar diagnostic (CONTOUR NEXT TEST STRIPS) test strip Use as instructed to check blood glucose 5 times daily. E10.65 - glucose 4 gram chewable tablet (more content not included)...[facility]06-14-2023 NoteHNO ID: [id number] Author: Kyara Luis RN Service: ? Author Type: Registered Nurse Type: Progress Notes Filed: 02/08/2023 11:44 AM Note Text: Summary: TCM call Provider Update: Patient Concerns: Needs from Physician/Office: Call Summary: Call placed to Kathleen Villa for transitional care management follow-up call. Spoke with patient, introduced self, explained role, discharge instructions and medications reviewed with patient. States that she has history of gastroparesis, follow up yesterday with GI and medication changes made, will moss picker new medication from her pharmacy. States that vomiting has resolved, tolerating diet, does have nausea and is on compazine and phenergan at home. Monitors blood sugar 5 times per day, FBS this am 131, has insulin pump and adjust according to carbohydrate intake. Currently waiting on continuous glucose monitor that was ordered at her last endocrinology appointment through [facility], patient calling today to follow up (has had in past), states all insulin pump supplies are provided by them as well. Declines need for further follow up, has my name and number if needs arise. Encouraged to reach out to PCP or specialty provider if new or worsening symptoms. APPOINTMENTS/SERVICES Reviewed follow up appointments per discharge summary. Yes Reviewed the following additional services: None SDOH With in the past 12 months, have you had any concerns with not having reliable transportation that has kept you from medical appointments or from getting things you needed for daily living? No Within the past 12 months, have you run out of food or been concerned that your were not going to be able to afford food? No MEDICATION REVIEW Confirmed patient able to obtain medications (new and/or refills): Yes Reviewed medications below in detail. Patient reports compliance with appropriate medications at this time. FOLLOW-UP Additional Concerns/ Needs: None Additional follow-up: None needed at this time Routed to PCP: No Patient identified by name and . TRANSITION CARE MANAGEMENT: Date of Outreach: 02/08/2023 02/06/2023 Outreach Attempt 1: Contact Not Made Contact Not Made Outreach Attempt 2: Contact Made - Date of Discharge 02/06/2023 - Some recent data might be hidden SUMMARY: -Admitted for: Vomiting/diabetic gastroparesis -Pt discharged from [facility] on 02/04. -Follow up appointment: Has had f/u with GI, declines sooner PCP appointment at this time . -Medication review completed. NEW OR CHANGED MEDICATIONS:NA MEDS HELD/DISCONTINUED:NA BRIEF HOSPITAL COURSE: 27-year-old white female who presented 2 days ago on 01/31 secondary to nausea and vomiting at home. Patient has a known history of diabetic gastroparesis. She follows in [facility]. She was admitted to [place]. Unfortunately she has not been tolerating p.o. intake with the exception of some ice chips Patient would be started on insulin drip while in the ICU. Anion gap would close and the patient would be transitioined to a diet. Blood sugars would remain stable once restarting her insulin pump. She will cotninue following with her personal steward dishwasher outpatient. Follow up with PCP in one week. Vital signs were stable on discharge. Patient understood and agreed with discharge plan You may be receiving a survey about your experience. We really value your feedback. If you would fill out the survey, it would help us tremendously as we continue to improve. Kyara Luis RN February 08, 2023 11:36 [facility]06-14-2023 History of Present illness Narrative* Kyara Luis RN - 02/08/2023 11:34 AM EDTSummary: TCM call Provider Update: Patient Concerns: Needs from Physician/Office: Call Summary: Call placed to Kathleen Villa for transitional care management follow-up call. Spoke with patient, introduced self, explained role, discharge instructions and medications reviewed with patient. States that she has history of gastroparesis, follow up yesterday with GI and medication changes made, will moss picker new medication from her pharmacy. States that vomiting has resolved, tolerating diet, does have nausea and is on compazine and phenergan at home. Monitors blood sugar 5 times per day, FBSthis am 131, has insulin pump and adjust according to carbohydrate intake. Currently waiting on continuous glucose monitor that was ordered at her last endocrinology appointment through [facility], patient calling today to follow up (has had in past), states all insulin pump supplies are provided by them as well. Declines need for further follow up, has my name and number if needs arise. Encouraged to reach out to PCP or specialty provider if new or worsening symptoms. APPOINTMENTS/SERVICES Reviewed follow up appointments per discharge summary. Yes Reviewed the following additional services: None SDOH With in the past 12 months, have you had any concerns with not having reliable transportation that has kept you from medical appointments or from getting things you needed for daily living? No Within the past 12 months, have you run out of food or been concerned that your were not going to be able to afford food? No MEDICATION REVIEW Confirmed patient able to obtain medications (new and/or refills): Yes Reviewed medications below in detail. Patient reports compliance with appropriate medications at this time. FOLLOW-UP Additional Concerns/ Needs: None Additional follow-up: None needed at this time Routed to PCP: No Patient identified by name and . TRANSITION CARE MANAGEMENT: Date of Outreach: 02/08/2023 02/06/2023 Outreach Attempt 1: Contact Not Made Contact Not Made Outreach Attempt 2: Contact Made - Date of Discharge 02/06/2023 - Some recent data might be hidden SUMMARY: -Admitted for: Vomiting/diabetic gastroparesis -Pt discharged from [facility] on 02/04. -Follow up appointment: Has had f/u with GI, declines sooner PCP appointment at this time . -Medication review completed. NEW OR CHANGED MEDICATIONS:NA MEDS HELD/DISCONTINUED:NA BRIEF HOSPITAL COURSE: 27-year-old white female who presented 2 days ago on 01/31 secondary to nausea and vomiting at home. Patient has a known history of diabetic gastroparesis. She follows in [facility]. She was admitted to [place]. Unfortunately she has not been tolerating p.o. intake with the exception of some ice chips Patient would be started on insulin drip while in the ICU. Anion gap would close and the patient would be transitioined to a diet. Blood sugars would remain stable once restarting her insulin pump. She will cotninue following with her personal steward dishwasher outpatient. Follow up with PCP in one week. Vital signs were stable on discharge. Patient understood and agreed with discharge plan You may be receiving a survey about your experience. We really value your feedback. If you would fill out the survey, it would help us tremendously as we continue to improve. Kyara Luis RN February 08, 2023 11:36 AM [facility] NotePatient Outreach (MRCAC) KATHLEEN VILLA ([id number]) 1995 F CHT Date Time Provider Department 02/06/23 KYARA LUIS During your visit today, we recorded the following information about you: Kyara Luis RN 02/06/2023 11:56 AM Signed TRANSITION CARE MANAGEMENT (TCM) FOLLOW-UP NOTE Provider Action/FYI Patient identified by name and date of : YES Summary: Transitional care call placed to patient, message left to return my call at [phone] ext [phone] Datastage Developer plan for next outreach: Will follow up this week Signature Kyara Luis RN February 06, 2023 Allergies As of Date: 02/06/2023 Noted Allergy Reaction PERCOCET (OXYCODONE-ACETAMINOPHEN)01/10/2014 2 - Rash 5 - Intolerance 9 - Itching ADHESIVE TAPE (ROSINS) 09/04/2013 2 - Rash INDOMETHACIN 11/20/2003 2 - Rash KEFLEX (CEPHALEXIN) 11/12/2013 14 - Other: See Comments Comments: Makes infection worse- patient denies this on 02/25/2014 MORPHINE 08/30/2013 2 - Rash 9 - Itching ZOFRAN (ONDANSETRON HCL (PF)) 01/14/2015 14 - Other: See Comments Comments: syncope ADHESIVE 11/07/2022 2 - Rash Date Reviewed: 02/04/2023 Reviewed by: Jhoana Colunga RN - Fully Assessed Reason for Visit: Transition Of Care [4074] Cmt: Message left Prescriptions as of 02/06/2023 - insulin aspart U-100 (NOVOLOG U-100 INSULIN ASPART) 100 unit/mL Use in the Insulin pump for TDD of 100 units. - prochlorperazine (COMPAZINE) 10 mg tablet Take 1 tablet by mouth every 6 hours as needed. - Lancets (MICROLET LANCET) lancets Use as instructed to test blood sugar 4 times daily. E10.65 - blood sugar diagnostic (CONTOUR NEXT TEST STRIPS) test strip Use as instructed to check blood glucose 5 times daily. E10.65 - glucose 4 gram chewable tablet Take 4 tablets by mouth as needed. - insulin glargine (LANTUS SOLOSTAR, BASAGLAR KWIKPEN) 100 unit/mL (3 mL) Inject 43 Units subcutaneously as directed in the event of Insulin pump failure. - linaCLOtide (LINZESS) 72 mcg capsule Take 1 capsule by mouth once daily. Administer on an empty stomach. Swallow whole; DO NOT crush or chew. - Acetone, Urine, Test (KETONE URINE TEST) Use as directed - promethazine (PHENERGAN) 50 mg tab(s) Take 1 tablet by mouth every 8 hours as needed. - SKYRIZI 150 mg/mL injection INJECT 150 MG UNDER THE SKIN EVERY 12 WEEKS Meds Comments as of 01/09/2020: All meds reviewed before sx. Pt has aye also for after sx. CL 01/09/20 IC PNV prenata plus multivitamin Problem List As Of Date 02/06/2023 Noted Resolved Retinal detachment [H33.20] 10/26/2012 12/25/2012 SUMMARY [V999.95] 12/25/2012 Acute chest pain [R07.9] 12/25/2012 Marfan syndrome [Q87.40] 12/25/2012 DM (diabetes mellitus) (HCC) [E11.9] 12/25/2012 Gastroparesis due to DM (HCC) [E11.43, K31.84] 12/25/2012 PTSD (post-traumatic stress disorder) [F43.10] 12/25/2012 DVT prophylaxis [Z79.899] 12/25/2012 09/04/2013 DISPOSITION AND FOLLOW-UP [V999.01] 12/25/2012 09/04/2013 HTN (hypertension) [I10] Hypertension in , antepartum [O16.9] 09/19/2013 01/08/2014 GBS (group B Streptococcus carrier), +RV cultur*11/11/2013 04/16/2014 [Z34.90] 11/22/2013 04/16/2014 Diabetes mellitus in (HCC) [O24.919] 12/25/2013 04/16/2014 Diabetic ketoacidosis without coma associated w*01/08/2014 02/04/2023 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] 01/08/2014 DVT prophylaxis [Z79.899] 02/25/2014 04/16/2014 care and examination [Z39.2] 02/25/2014 04/16/2014 Near syncope [R55] 06/17/2014 Dyspnea [R06.00] 11/04/2014 Pre-op testing [Z01.818] 11/28/2014 Atelectasis [J98.11] 12/10/2014 Fluid overload [E87.70] 12/10/2014 12/15/2014 Tachycardia, unspecified [R00.0] 12/10/2014 12/12/2014 Post-operative pain [G89.18] 12/10/2014 Anxiety [F41.9] 12/10/2014 12/13/2014 Pre-existing type 1 diabetes mellitus in pregna*08/05/2015 10/03/2018 Hereditary disease in family possibly affecting*10/07/2015 Diabetes (HCC) [E11.9] 10/30/2015 Abdominal pain complicating , antepart*11/12/2015 [Z34.90] 01/28/2016 03/06/2017 Type 1 diabetes mellitus with stable proliferat*03/17/2017 Chronic idiopathic constipation [K59.04] 11/18/2021 Menstrual irregularity [N92.6] 04/18/2022 Screening for STD (sexually transmitted disease*04/18/2022 Chronic nausea [R11.0] 04/18/2022 Type 1 diabetes mellitus with hyperglycemia, wi*08/16/2022 Insulin pump status [Z96.41] 08/16/2022 Gastroparesis [K31.84] 11/23/2022 Generalized abdominal pain [R10.84] 12/08/2022 Nausea and vomiting [R11.2] 02/01/2023 Encounter Status:Closed by KYARA LUIS on 02/06/23[facility] 02-06-2023 NoteHNO ID: [id number] Author: Kyara Luis RN Service: ? Author Type: Registered Nurse Type: Progress Notes Filed: 02/06/2023 11:56 AM Note Text: Summary: TCM call TRANSITION CARE MANAGEMENT (TCM) FOLLOW-UP NOTE Provider Action/FYI Patient identified by name and date of : YES Summary: Transitional care call placed to patient, message left to return my call at [phone] Datastage Developer plan for next outreach: Will follow up this week Signature Kyara Luis RN February 06, 2023[facility]06-09-2023 NoteHNO ID: [id number] Author: Clemencia Rivera RN Service: PICC Team Author Type: Registered Nurse Type: Procedures Filed: 02/03/2023 2:30 PM Note Text: MIDLINE INSERTION PROCEDURE NOTE - PICC TEAM NURSES DATE OF PROCEDURE: 02/03/2023 TIME OF PROCEDURE: 1420 ORDERING PHYSICIAN: Juan Carlos Leroy CNP Indications for line placement: Intravenous access Condition of line placement: Sterile Primary Proceduralist: Lewis Fuentes RN [employer] [place] Clerk: Clemencia Rivera RN Pre-procedure Review: ALLERGIES Allergen Reactions Percocet [Oxycodone* Rash, Intolerance, Itching Adhesive Tape (Lidia* Rash Indomethacin Rash Keflex [Cephalexin] Other: See Comments Makes infection worse- patient denies this on 02/25/2014 Morphine Rash, Itching Zofran [Ondansetron* Other: See Comments syncope Adhesive Rash Known history of Upper Venous Thrombosis: No Known history of Permanent Pacemaker or Automated Implanted Cardiac Device: No Previous breast surgery of lymph node dissection: No Estimated Glomerular Filtration Rate Date Value Ref Range Status 02/03/2023 127 >=60 mL/min/1.73m? Final Comment: Estimated Glomerular Filtration Rate (eGFR) is calculated using the 2020 CKD-EPI creatinine equation. This equation utilizes serum creatinine, sex, and age as parameters. The creatinine assay has traceable calibration to isotope dilution-mass spectrometry. Refer to KDIGO guidelines for clinical interpretation. In patients with unstable renal function, e.g. those with acute kidney injury, the eGFR may not accurately reflect actual GFR. eGFR- Date Value Ref Range Status 02/01/2022 Greater than 60 Final Estimated GFR Date Value Ref Range Status 02/01/2022 Greater than 60 Final History of Renal Disease: No Ultrasound assessment complete: Yes Procedure Narrative Safe Practice: Hand hygiene per hospital policy: Yes Skin preparation used: Chloraprep (CHG + alcohol), allowed to dry Barriers used by Proceduralist and all assisting personnel: Yes UNIVERSAL PROTOCOL / SAFETY CHECKLIST Procedure to be Performed: Midline Insertion Sign In: A Moment of CARE was completed. Personnel directly involved with the procedure wore the appropriate PPE (Personal Protective Equipment). Patient/Surrogate Stated/Verified: PATIENT VERIFIED(optional for EMERGENT procedures): Patient name, Date of , Relevant allergies, and The intended procedure Time Out Communication: Intended patient and procedure match the source documents. Relevant labs, photos, and/or imaging studies have been reviewed. No medications required for procedure. No fire risk assessment and interventions applicable. No implant(s) inserted. Sign Out: SIGN OUT (optional for EMERGENT procedures): No specimen collected. Clemencia Rivera RN Midline Catheter Placement: Brand: BARD Lot: [id number] Number of lumens: 1 Type of Midline: Power Injectable Midline Lumen size: 3 [place] Placement Technique: Lidocaine: Yes, Lidocaine 1% Volume 2 mL Subcutaneous Modified Seldinger Technique use to place line via the: Left Basilic Ultrasound Guidance: Yes Number of attempts at insertion: 1 Ensured control of guidewire during all aspects of the procedure: Yes Accounted for entire guidewire upon removal: Yes Internal length: 11 cm External length: 0 cm Trim length:11 cm Mid-Arm circumference: 28 centimeters Post insertion pain level related to procedure: 0 Action taken to address pain: None needed Verified placement: Positive blood return Line was flushed with 10 mL normal saline Line secured with: Securement device Sterile dressing applied and dated: Yes Sterile caps on all ports prior to leaving procedure area: Yes, Disinfection caps applied Specimens: None Complications: None Patient education materials: Placed in chart Questions or problems: Call Vascular Access Nurse on [facility] SIGNATURE: Clemencia Rivera RN PATIENT NAME: Kathleen Villa DATE: February 03, 2023 TIME: 2:24 PM PAGER: Call Vascular Access Nurse on [facility] 02-03-2023 NoteHNO ID: [id number] Author: Mary Ordoñez RN Service: Nursing Author Type: Registered Nurse Type: Nursing Progress Note Filed: 02/03/2023 1:55 PM Note Text: Vascular access team at bedside setting up for ordered midline IV placement at this time.[facility]06-09-2023 NoteHNO ID: [id number] Author: Rubio Diana MD Service: Critical Care Author Type: Physician Type: Progress Notes Filed: 02/03/2023 11:39 AM Note Text: [facility] STAFF PHYSICIAN NOTE OF PERSONAL INVOLVEMENT IN CARE I have reviewed the progress note obtained and documented by the ASHLY. I have personally performed a face to face assessment of the patient and performed the substantive portion of the visit which includes the medical decision making. I have discussed the case and management of the patient's care. The following comments revise or confirm relevant herrera components of the note. IMPRESSION: -DKA -Metabolic acidosis secondary to DKA -Diabetic gastroparesis -Leukocytosis suspected leukemoid reaction. No left shift. Procalcitonin only 0.33 PLAN: -We will start insulin drip. Every hour blood sugars. Every 6 hours BMP. We will give 2 L of LR now. Start D5 half-normal saline given blood sugars 182 -Continue home Reglan 10 mg every 6 hours as at home -Sips and chips. Replace magnesium -A.m. labs Patient/Family Updated: Patient, Kathleen Villa, updated regarding the goals of care, medical plan for the day, behavioral consultant recommendations, medical disposition and current medical condition/prognosis as and if clinically indicated. All questions and concerns were answered and addressed at this juncture. They were notified on February 03, 2023 at 0800. The duration of the conversation was 5 minutes. This patient has a high probability of sudden, clinically significant deterioration, which requires the highest level of physician preparedness to intervene urgently. I managed/supervised life or organ supporting interventions that required frequent physician assessment. I devoted my full attention to the direct care of this patient for the amount of time indicated below. Time I spent with family or surrogate(s) is included only if the patient was incapable of providing the necessary information or participating in medical decision making. Time devoted to teaching and to any procedures I billed separately is not included. Critical Care Documentation: The patient has the following organ/system impairment(s): Severe metabolic disorder Time spent providing critical care services: 35 minutes. SIGNATURE: Rubio Diana MD [facility] DATE of SERVICE: 02/03/2023[facility]06-09-2023 NoteHNO ID: [id number] Author: Yimi Leroy APRN.CNP Service: Critical Care Author Type: Nurse Practitioner Type: Progress Notes Filed: 02/03/2023 8:07 AM Note Text: PULMONARY/CRITICAL CARE INTENSIVE MEDICAL/SURGICAL CARE UNIT PROGRESS NOTE Patient Name: Kathleen Villa Account #: Data Unavailable Admission Date: 01/31/2023 Date of Evaluation: 02/03/2023 Time of Evaluation: 8:02 AM SUBJECTIVE Discussed with nursing. Patient states she slept reasonably well last evening. Unfortunately anion gap was upwards of 17 this morning. This had improved but then worsened. Unfortunate will place the patient on a insulin drip. Continue aggressive crystalloid volume resuscitation. Patient was able to keep down some grape juice last evening in addition to ice chips. Persistent nausea. Chest port clotted at 1 point last evening now patent again following Activase VITALS 02/03/23 0552 02/03/23 0600 02/03/23 0700 02/03/23 0753 BP: 117/56 120/58 Pulse: (!) 48 (!) 48 Resp: 29 23 Temp: 37.1 ?C (98.7 ?F) TempSrc: Oral SpO2: 97% 94% Weight: 87.2 kg (192 lb 3.9 oz) Height: PHYSICAL EXAM Gen: Alert and awake. No distress conversant Lungs: Clear throughout Heart: Regular rate and rhythm no murmur Abd: Mild tenderness diffusely. Nothing focal. Positive bowel sounds Ext: Palpable pulses. Left chest port 24 hour Intake AND Output: Intake/Output Summary (Last 24 hours) at 02/03/2023 0802 Last data filed at 02/03/2023 0500 Gross per 24 hour Intake 6124 ml Output 2 ml Net 6122 ml INPATIENT MEDICATIONS : Current Facility-Administered Medications Medication Dose Route Frequency NaCl 0.9% iv flush bag 20 mL INTRAVENOUS PRN acetaminophen 650 mg tab(s) (TYLENOL) 650 mg ORAL q 4 H PRN dextrose 40 % 15 g 15 g ORAL PRN Or glucagon 1 mg injection 1 mg INTRAMUSCULAR PRN Or dextrose 10% iv bolus 12.5 g INTRAVENOUS PRN prochlorperazine 10 mg injection (COMPAZINE) 10 mg INTRAVENOUS q 6 H PRN metoclopramide HCl 10 mg injection (REGLAN) 10 mg INTRAVENOUS q 6 H PRN pantoprazole 40 mg injection (PROTONIX) 40 mg INTRAVENOUS DAILY (6 AM) insulin glargine 20 Units pen (long acting) 20 Units SUBCUTANEOUS AT BEDTIME lactated ringers iv infusion 125 mL/hr INTRAVENOUS CONTINUOUS insulin lispro injection (rapid acting) (HumaLOG) SUBCUTANEOUS q 6 H HOME MEDICATIONS: insulin aspart U-100 (NOVOLOG U-100 INSULIN ASPART) 100 unit/mLUse in the Insulin pump for TDD of 100 units.Disp: 90 mLRfl: 1 prochlorperazine (COMPAZINE) 10 mg tabletTake 1 tablet by mouth every 6 hours as needed.Disp: 15 tabletRfl: 0 Lancets (MICROLET LANCET) lancetsUse as instructed to test blood sugar 4 times daily. E10.65Disp: 400 EachRfl: 3 blood sugar diagnostic (CONTOUR NEXT TEST STRIPS) test stripUse as instructed to check blood glucose 5 times daily. E10.65Disp: 500 StripRfl: 3 glucose 4 gram chewable tabletTake 4 tablets by mouth as needed.Disp: 100 tabletRfl: 11 linaCLOtide (LINZESS) 72 mcg capsuleTake 1 capsule by mouth once daily. Administer on an empty stomach. Swallow whole; DO NOT crush or chew.Disp: 30 capsuleRfl: 4 promethazine (PHENERGAN) 50 mg tab(s)Take 1 tablet by mouth every 8 hours as needed.Disp: 30 tabletRfl: 2 insulin glargine (LANTUS SOLOSTAR, BASAGLAR KWIKPEN) 100 unit/mL (3 mL)Inject 43 Units subcutaneously as directed in the event of Insulin pump failure.Disp: 15 mLRfl: 1 Acetone, Urine, Test (KETONE URINE TEST)Use as directedDisp: 100 StripRfl: 5 SKYRIZI 150 mg/mL injectionINJECT 150 MG UNDER THE SKIN EVERY 12 WEEKSDisp: Rfl: LABORATORY TESTS: CBC: Recent Labs 02/03/23 0336 02/02/23 1126 02/01/23 0514 01/31/23 1956 WBC 16.45* 20.73* 16.97* 15.46* HB 11.8 10.8* 12.6 14.8 HCT 37.7 33.8* 38.4 43.2 PLT 144* 164 139* 180 MCV 95.0 91.1 88.9 84.9 RDWCV 13.5 14.0 13.3 12.9 NEUTP 83.3 82.9 -- 78.6 ABSNEUT 13.71* 17.17* -- 12.16* LYMPHP 10.7 11.6 -- 15.3 MONOP 4.7 4.5 -- 4.7 COAG: No results for input(s): APTT, INR in the last 168 hours. BMP: Recent Labs 02/03/2333502/02/23192902/02/23 1126 02/02/23 0944 02/02/23 0202 02/01/23 1235 02/01/23 0514 01/31/231955 GLUC 252* 251* 253* 336* 421* 351* 311* 248* NA 138 138 139 136 138 139 141 141 K -- 4.4 4.6 -- 4.8 4.0 4.4 3.8 CHLOR 109* 108* 113* 108* 108* 108* 110* 110* CO2 12* 13* 11* 9* 12* 15* 15* 15* ANION 17* 17* 15 19* 18* 16 16 16 BUN 10 12 18 19 20 19 15 17 CREAT 0.64 0.69 0.77 0.82 0.75 0.89 0.66 0.65 CHEM: Recent Labs 02/03/2333502/02/23192902/02/23 11202/02/23 0944 02/02/23 0202 02/01/23 1235 02/01/23 0514 01/31/231955 ALB 3.5 -- -- -- -- -- 3.8 4.3 TPROT 5.8* -- -- -- -- -- 6.5 7.3 CA 8.5 8.0* 8.2* 8.6 8.6 8.4* 8.7 9.9 MG 1.8 -- -- 2.3 -- -- 1.7 -- HEPATIC: Recent Labs 02/03/2333502/01/23 0514 01/31/231955 ALKPHOS 82 84 93 ALT 19 19 21 AST -- 15 19 TBILI 1.0 0.7 0.8 LIPASE -- -- 21 URINALYSIS: Recent Lab (more content not included)...[facility]06-08-2023 NoteHNO ID: [id number] Author: Rubio Diana MD Service: Critical Care Author Type: Physician Type: Progress Notes Filed: 02/02/2023 2:32 PM Note Text: [facility] STAFF PHYSICIAN NOTE OF PERSONAL INVOLVEMENT IN CARE I have reviewed the history and physical examination obtained and documented by the ASHLY. I have personally performed a face to face assessment of the patient and performed the substantive portion of the visit which includes the medical decision making. I have discussed the case and management of the patient's care. The following comments revise or confirm relevant herrera components of the note. IMPRESSION/PLAN: ASSESSMENT: -DKA -Metabolic acidosis secondary to DKA -Gastroparesis PLAN: -Patient be transferred to ICU. Case discussed with Dr. Mccray -Give 3L of IV fluid/LR now. LR maintenance at 125 cc/h thereafter -Q2R blood sugars -Every 6 hours BMP. Beta hydroxybutyrate level pending. Patient did have ketones +2 in her urine upon arrival -Awaiting VBG, stat BMP as last check was at 2 AM -Restart Reglan 10 mg every 6 hours as at home -Sips and chips -A.m. labs Patient/Family Updated: Patient, Kathleen Villa, updated regarding the goals of care, medical plan for the day, behavioral consultant recommendations, medical disposition and current medical condition/prognosis as and if clinically indicated. All questions and concerns were answered and addressed at this juncture. They were notified on February 02, 2023 at 1300. The duration of the conversation was 10 minutes. This patient has a high probability of sudden, clinically significant deterioration, which requires the highest level of physician preparedness to intervene urgently. I managed/supervised life or organ supporting interventions that required frequent physician assessment. I devoted my full attention to the direct care of this patient for the amount of time indicated below. Time I spent with family or surrogate(s) is included only if the patient was incapable of providing the necessary information or participating in medical decision making. Time devoted to teaching and to any procedures I billed separately is not included. Critical Care Documentation: The patient has the following organ/system impairment(s): Severe electrolyte imbalance and Severe metabolic disorder Time spent providing critical care services: 30 minutes. SIGNATURE: Rubio Diana MD [facility] DATE of SERVICE: 02/02/2023[facility]06-08-2023 NoteHNO ID: [id number] Author: Alex Mccray MD Service: Hospital Medicine Author Type: Physician Type: Progress Notes Filed: 02/02/2023 9:37 AM Note Text: INPATIENT PROGRESS NOTE SERVICE DATE: 02/02/2023 SERVICE TIME: 9:03 AM SUBJECTIVE: CHIEF COMPLAINT: Nausea, vomiting, abdominal pain INTERVAL HPI: Patient seen and examined. Patient is 27-year-old female with history of diabetes, gastroparesis, follows with commercial decorator at [facility] who presented for abdominal pain, nausea, vomiting for 1 day and on evaluation she was thought to have gastroparesis episode for which she was admitted. She still mentions having significant nausea/vomiting this morning along with some abdominal discomfort. Her insulin pump was found to be nonfunctional yesterday and she was started on subcutaneous insulin last evening. Bicarb went low to 12 at 2 AM this morning and anion gap 18. Denies fever, urinary symptoms or change in mental status. No other events overnight. OBJECTIVE: VITAL SIGNS: BP 114/54 Pulse 86 Temp (Src) 99 (Oral) Resp 18 Ht 5' 9 (1.75m) Wt 190 lb (86.2kg) SpO2 99% LMP 11/26/2022 BMI 28.05 kg/(m2). O2 Therapy: Room Air PHYSICAL EXAM: Physical Exam Performed: GENERAL: [Patient is a moderately built female lying in bed in some distress due to not feeling well.] HEAD: [Atraumatic, normocephalic.] NECK: [Supple.] CARDIOVASCULAR: [S1-S2 audible, no murmurs.] RESPIRAORY: [Bilateral air entry present. No significant rales or wheezing noted.] ABDOMIN: [Soft, mild nonspecific tenderness noted diffusely, bowel sounds appreciated.] EXTREMITIES: [No edema, pulses palpable bilaterally.] SKIN: [Clear, no evidence of bleeding.] RELAY TELEGRAPHER: [Patient awake, alert, oriented ?3. No focal neurological deficits. ] PSYCHIATRIC: [ Patient is in some distress due to not feeling well.] DATA: Diagnostic tests reviewed for today's visit: Recent Results (from the past 24 hour(s)) GLUCOSE, BLOOD (POC) Collection Time: 02/01/23 9:35 AM Result Value Ref Range Glucose, Point of Care 416 (A) 85 - 125 mg/dL GLUCOSE, BLOOD (POC) Collection Time: 02/01/23 12:05 PM Result Value Ref Range Glucose, Point of Care 326 (A) 85 - 125 mg/dL BASIC METABOLIC PNL Collection Time: 02/01/23 12:35 PM Result Value Ref Range Glucose 351 (H) 70 - 100 mg/dL BUN 19 7 - 26 mg/dL Creatinine 0.89 0.51 - 0.95 mg/dL Sodium 139 136 - 145 mmol/L Potassium 4.0 3.5 - 5.1 mmol/L Chloride 108 (H) 98 - 107 mmol/L CO2 15 (L) 21 - 32 mmol/L Anion Gap 16 5 - 16 mmol/L Calcium, Total 8.4 (L) 8.5 - 10.5 mg/dL Estimated Glomerular Filtration Rate 91 >=60 mL/min/1.73m? GLUCOSE, BLOOD (POC) Collection Time: 02/01/23 2:27 PM Result Value Ref Range Glucose, Point of Care 222 (A) 85 - 125 mg/dL GLUCOSE, BLOOD (POC) Collection Time: 02/01/23 4:42 PM Result Value Ref Range Glucose, Point of Care 282 (A) 85 - 125 mg/dL GLUCOSE, BLOOD (POC) Collection Time: 02/01/23 7:38 PM Result Value Ref Range Glucose, Point of Care 326 (A) 85 - 125 mg/dL BASIC METABOLIC PNL Collection Time: 02/02/23 2:02 AM Result Value Ref Range Glucose 421 (H) 70 - 100 mg/dL BUN 20 7 - 26 mg/dL Creatinine 0.75 0.51 - 0.95 mg/dL Sodium 138 136 - 145 mmol/L Potassium 4.8 3.5 - 5.1 mmol/L Chloride 108 (H) 98 - 107 mmol/L CO2 12 (L) 21 - 32 mmol/L Anion Gap 18 (H) 5 - 16 mmol/L Calcium, Total 8.6 8.5 - 10.5 mg/dL Estimated Glomerular Filtration Rate 111 >=60 mL/min/1.73m? GLUCOSE, BLOOD (POC) Collection Time: 02/02/23 3:22 AM Result Value Ref Range Glucose, Point of Care 386 (A) 85 - 125 mg/dL GLUCOSE, BLOOD (POC) Collection Time: 02/02/23 8:18 AM Result Value Ref Range Glucose, Point of Care 280 (A) 85 - 125 mg/dL INPATIENT MEDICATIONS: Current Facility-Administered Medications Medication Dose Route Frequency NaCl 0.9% iv flush bag 20 mL INTRAVENOUS PRN NaCl 0.9% iv infusion 125 mL/hr INTRAVENOUS CONTINUOUS acetaminophen 650 mg tab(s) (TYLENOL) 650 mg ORAL q 4 H PRN dextrose 40 % 15 g 15 g ORAL PRN Or glucagon 1 mg injection 1 mg INTRAMUSCULAR PRN Or dextrose 10% iv bolus 12.5 g INTRAVENOUS PRN insulin lispro injection (rapid acting) (HumaLOG) SUBCUTANEOUS w MEALS prochlorperazine 10 mg injection (COMPAZINE) 10 mg INTRAVENOUS q 6 H PRN metoclopramide HCl 10 mg injection (REGLAN) 10 mg INTRAVENOUS q 6 H PRN pantoprazole 40 mg injection (PROTONIX) 40 mg INTRAVENOUS DAILY (6 AM) insulin aspart human 300 Units per 3mL vial for insulin pump (SELF ADMINISTERED) 300 Units SUBCUTANEOUS CONTINUOUS insulin glargine 20 Units pen (long acting) 20 Units SUBCUTANEOUS AT BEDTIME ASSESSMENT AND PLAN: Principal Problem: Nausea and vomiting POA: Yes Patient is 27-year-old female with history of diabetes, gastroparesis, follows with commercial decorator at [facility] who presented for abdominal pain, nausea, vomiting for 1 day and on evaluation she was thought to have gastroparesis episode for which s (more content not included)...[facility]06-07-2023 NoteHNO ID: [id number] Author: Alex Mccray MD Service: Hospital Medicine Author Type: Physician Type: Progress Notes Filed: 02/02/2023 8:24 AM Note Text: INPATIENT PROGRESS NOTE SERVICE DATE: 02/01/2023 SERVICE TIME: 11:38 AM SUBJECTIVE: CHIEF COMPLAINT: Nausea, vomiting, abdominal pain INTERVAL HPI: Patient seen and examined. Patient is 27-year-old female with history of diabetes, gastroparesis, follows with commercial decorator at [facility] who presented for abdominal pain, nausea, vomiting for 1 day and on evaluation she was thought to have gastroparesis episode for which she was admitted. She still mentions having significant nausea/vomiting this morning along with some abdominal discomfort. Denies fever, urinary symptoms or change in mental status. No other events overnight. OBJECTIVE: VITAL SIGNS: BP 105/43 Pulse 78 Temp (Src) 97.8 (Oral) Resp 20 Ht 5' 9 (1.75m) Wt 190 lb (86.2kg) SpO2 98% LMP 11/26/2022 BMI 28.05 kg/(m2). O2 Therapy: Room Air PHYSICAL EXAM: Physical Exam Performed: GENERAL: [Patient is a moderately built female lying in bed in some distress due to not feeling well.] HEAD: [Atraumatic, normocephalic.] NECK: [Supple.] CARDIOVASCULAR: [S1-S2 audible, no murmurs.] RESPIRAORY: [Bilateral air entry present. No significant rales or wheezing noted.] ABDOMIN: [Soft, mild nonspecific tenderness noted diffusely, bowel sounds appreciated.] EXTREMITIES: [No edema, pulses palpable bilaterally.] SKIN: [Clear, no evidence of bleeding.] RELAY TELEGRAPHER: [Patient awake, alert, oriented ?3. No focal neurological deficits. ] PSYCHIATRIC: [ Patient is in some distress due to not feeling well.] DATA: Diagnostic tests reviewed for today's visit: Recent Results (from the past 24 hour(s)) XR ACUTE ABD SERIES 3V (2V ABD/1V CXR) Collection Time: 01/31/23 7:33 PM Narrative * * *Final Report* * * DATE OF EXAM: Jan 31 2023 7:33PM [id number] [id number] - XR ACUTE ABD SERIES 2V ABD+CXR / PROCEDURE REASON: Bowel obstruction suspected * * * * Physician Interpretation * * * * EXAM: XR ACUTE ABD SERIES 2V ABD+CXR HISTORY: Bowel obstruction suspected COMPARISON: 11/24/2022. FINDINGS: Left-sided chest port tip projects over the SVC. Loop recorder projects over the left chest. Sternotomy wires are present. No focal pulmonary opacity. No pleural effusion or pneumothorax. Cardiac silhouette and nelida are normal. No pneumoperitoneum. Curvilinear lucencies project over the pelvis, similar to previous examinations and not associated with pathology. Bowel gas pattern is not well-characterized is there is no appreciable gas. Mild right-sided colonic stool burden. No appreciable pathologic calcification. Impression IMPRESSION: No acute cardiopulmonary disease. Nonspecific bowel gas pattern, favored fluid-filled bowel. Consider CT if concern remains high. Promotions Coordinator: PSCB Transcribe Date/Time: Jan 31 2023 7:56P Dictated by : SARAVANAN REESE MD This examination was interpreted and the report reviewed and electronically signed by: SARAVANAN REESE MD on Jan 31 2023 8:00PM EST ECG COMPLETE Collection Time: 01/31/23 7:42 PM Result Value Ref Range Ventricular Rate 80 BPM Atrial Rate 80 BPM P-R Interval 144 ms QRS Duration 84 ms QT Interval 402 ms QTC Calculation (Bazett) 463 ms Calculated P [place] 26 degrees Calculated R [place] 78 degrees Calculated T [place] 72 degrees Narrative NAME : KATHLEEN VILLA PID : [id number] : 1995 Gender : Female Race : ORD : [id number] Procedure Date : Jan 31 2023 19:42:30 Edit Date : Jan 31 2023 23:03:15 Diagnosis: Normal sinus rhythm Nonspecific T wave abnormality Abnormal ECG When compared with ECG of 23-NOV-2022 18:14, Nonspecific T wave abnormality now evident in Lateral leads QT has lengthened Confirmed by ANASTASIA CHENG MD ([id number]) on 01/31/2023 11:03:12 PM Test Reason : STAT Location : 0 : ED 9 Overread By : ANASTASIA CHENG MD Edited By : ANASTASIA CHENG MD Referred By : , Acquired by : SARWAT, Impression Normal sinus rhythm Nonspecific T wave abnormality Abnormal ECG When compared with ECG of 23-NOV-2022 18:14, Nonspecific T wave abnormality now evident in Lateral leads QT has lengthened Confirmed by ANASTASIA CHENG MD ([id number]) on 01/31/2023 11:03:12 PM CBC + DIFF Collection Time: 01/31/23 7:56 PM Result Value Ref Range WBC 15.46 (H) 3.70 - 11.00 k/uL RBC 5.09 3.90 - 5.20 m/uL Hemoglobin 14.8 11.5 - 15.5 g/dL Hematocrit 43.2 36.0 - 46.0 % MCV 84.9 80.0 - 100.0 fL MCH 29.1 26.0 - 34.0 pg MCHC 34.3 30.5 - 36.0 g/dL RDW-CV 12.9 11.5 - 15.0 % Platelet Count 180 150 - 400 k/uL MPV 13.0 (H) 9.0 - 12.7 fL Neutrophils % 78.6 % Abs Neut 12.16 (H) 1.45 - 7.50 k/uL Lymphocytes % 15.3 % Abs Lymph 2.36 1.00 - 4.00 k/uL Monocytes % 4.7 % Abs Mclean 0.73 <0.87 k/uL Eosinophils % 0.1 % Abs Eosin <0.03 <0.46 k/uL Basophils % 0.5 % Abs Baso 0.07 <0.11 k/uL (more content not included)...[facility]06-07-2023 Miscellaneous Notes * Telephone Encounter - Radha Mandel MA - 02/01/2023 10:36 AM EDT Spoke with patient and she voiced understanding. * Telephone Encounter - Radha Mandel MA - 02/01/2023 10:35 AM EDT ----- Message from Vivi Smith MD sent at 01/27/2023 8:53 AM EDT ----- Please call and notify patient no signs of UTI on urine culture [facility] NoteHNO ID: [id number] Author: Radha Mandel MA Service: ? Author Type: Metallurgical Technician Type: Progress Notes Filed: 01/25/2023 1:01 PM Note Text: Patient here today to recollect urine as previous urine culture was contaminated. Patient concerned as that was her second collection with multiple bacteria. Urine collected, dipped, and sent out for culture.[facility]05-31-2023 History of Present illness Narrative* Autumn Valadez APRN.FRIEDA - 01/25/2023 1:30 PM EDT Images from the original note were not included. [facility] DIABETES VISIT ALLERGIES Allergen Reactions Percocet [Oxycodone* Rash, Intolerance, Itching Adhesive Tape (Lidia* Rash Indomethacin Rash Keflex [Cephalexin] Other: See Comments Makes infection worse- patient denies this on 02/25/2014 Morphine Rash, Itching Zofran [Ondansetron* Other: See Comments syncope Adhesive Rash Current Outpatient Medications Medication Sig prochlorperazine (COMPAZINE) 10 mg tablet Take 1 tablet by mouth every 6 hours as needed. Lancets (MICROLET LANCET) lancets Use as instructed to test blood sugar 4 times daily. E10.65 blood sugar diagnostic (CONTOUR NEXT TEST STRIPS) test strip Use as instructed to check blood glucose 5 times daily. E10.65 glucagon (BAQSIMI) 3 mg/actuation nasal spray Use 1 [place] in the nose as needed for low blood sugar. May repeat after 15 minutes using a new device if there is no response. glucose 4 gram chewable tablet Take 4 tablets by mouth as needed. insulin glargine (LANTUS SOLOSTAR, BASAGLAR KWIKPEN) 100 unit/mL (3 mL) Inject 43 Units subcutaneously as directed in the event of Insulin pump failure. linaCLOtide (LINZESS) 72 mcg capsule Take 1 capsule by mouth once daily. Administer on an empty stomach. Swallow whole; DO NOT crush or chew. Acetone, Urine, Test (KETONE URINE TEST) Use as directed promethazine (PHENERGAN) 50 mg tab(s) Take 1 tablet by mouth every 8 hours as needed. SKYRIZI 150 mg/mL injection INJECT 150 MG UNDER THE SKIN EVERY 12 WEEKS hydrOXYzine HCl (ATARAX) 50 mg tablet Take 50 mg by mouth every 6 hours as needed. insulin aspart U-100 (NOVOLOG U-100 INSULIN ASPART) 100 unit/mL Use in the Insulin pump for TDD of 100 units. hyoscyamine sublingual (LEVSIN SL) 0.125 mg Dissolve 2 tablets under the tongue before meals and atbedtime for 7 days. No current facility-administered medications for this visit. Immunization History Administered Date(s) Administered hepatitis A (HepA) vaccine, 2-dose series, ped/adol (HAVRIX-PEDS, VAQTA-PEDS) 05/09/2012 human papillomavirus (HPV4) vaccine, quadrivalent (GARDASIL) 06/12/2012 08/11/2012 influenza (IIV3) vaccine, age 3+ yr, trivalent (AFLURIA, FLULAVAL, FLUVIRIN, FLUZONE) 05/23/2014 influenza (IIV3) vaccine, trivalent (AFLURIA, FLULAVAL, FLUVIRIN, FLUZONE) 06/14/2016 influenza (IIV3) vaccine, trivalent, PF (AFLURIA, FLUARIX, FLULAVAL, FLUVIRIN, FLUZONE) 06/05/2015 influenza (IIV4) vaccine, age 6 mo - 64 yr, quadrivalent, PF (AFLURIA, FLUARIX, FLULAVAL, FLUZONE) 11/05/2019 influenza (LAIV) vaccine, nasal, unspecified formulation 05/30/2016 meningococcal (MenACWY-D) vaccine, quadrivalent (MENACTRA) 11/03/2009 pneumococcal (PPV23) vaccine, 23 valent (PNEUMOVAX 23) 01/01/2013 tetanus diphtheria pertussis (Tdap) vaccine, age 7+ yr (ADACEL, BOOSTRIX) 11/03/2009 04/16/2014 Social History Tobacco Use Smoking status: Former Packs/day: 0.30 Years: 8.00 Pack years: 2.40 Types: Cigarettes Quit date: 06/2019 Years since quittin.5 Smokeless tobacco: Never Vaping Use Vaping Use: Never used Substance Use Topics Alcohol use: Yes Comment: very rarely Drug use: Yes Types: Marijuana Comment: medical card previous 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 VAMSI 11/2014 SECTION HX 02/25/2014 amairani 37 weeks PAST SURGICAL HISTORY OF Right 01/08/2020 REMOVE IMPLANTED MATERIAL POSTERIOR SEGMENT OF EYE, EXTRAOCULAR PICC LINE INSERT/CONSULT 01/09/2014 PORT Left VITRECTOMY MECHANICAL PARS PLANA 10/29/2012 PPV ([place] Vitrectomy) OD VITRECTOMY MECHANICAL PARS PLANA 05/14/2014 PPV ([place] Vitrectomy)/PCIOL OS XTRNL PT ACTIV ECG TRANSMIS W/R&I </30 DAYS 09/05/2014 left chest wall FAMILY HISTORY Problem Relation Age of Onset Cancer Mother 18 cervical Thyroid Mother Multiple Sclerosis Father other (mitral valve) Father Thyroid Sister Diabetes Maternal Grandmother type 2 diabetes Cataract Other maternal great grandma Glaucoma Other maternal great grandma I reviewed the Metallurgical Technician's notes with this visit for vital signs, current allergies, medications, electronic medical record, lab(s), outside lab(s), and or back office lab(s) results, historyof vaccinations, and chief complaints. I edited the information obtained, as required. HISTORY OF PRESENT ILLNESS Last endo office visit: 07/2022 with me Kathleen Villa is a 27 year old female who comes for follow-up of Type 1 DM which is uncontrolled. Patient has had diabetes since age 14 YO. Also known history of gastroparesis, retinopathy, HTN, Marfan's syndrome with dilated aortic root, anxiety/depression Family history of DM: yes, maternal grandmother DM2 She was late to this appt today. Zohreh Block will be training her on the new Medtronic 770G. Gilda needs office visit notes from today faxed to [facility] in order to receive her Guardian CGM. Patient's last HgA1C was Hemoglobin A1C (%) Date Value 12/30/2021 6.2 Hemoglobin A1C (POCT) (%) Date Value 01/25/2023 7.6 Diet: Carb counting 1 meal/day: 1/2 pizza or bratwurst, potato salad, mac salad. Small bowl of salad. Fish Snacking: chips, string cheese, apple sauce, 1/2 bologna sandwich Water, diet dr. Sams. Current Medications to manage DM: The patient is currently taking Novolog insulin via Medtronic 630G insulin pump in manual mode at the following settings to manage their diabetes: Basal rate: 00:00= 1.8 units/hr 43.2= units per 24 h basal rate Bolus: Insulin:carb ratio 00:00= 10 g/ unit Sensitivity 00:00= 30 mg/dL Blood glucose target 00:00= 110-120 mg/dL Insulin duration= 3 hrs MONITORING: Insulin pump download reveals the following over the last 14 days: 1. Patient tests an average of 1.2 times per day 2. Patient boluses an average of 6.5 times per day 3. Average total daily dose is 98.3 units 4. Average % basal: bolus Ratio is 44:56 5. Average fingerstick blood glucose is 210 + 141 mg/dl 6. Average sensor blood glucose is N/a 7. Average daily carbs entered is 500 + 204 g 8. Patient changes pump site every 3.3 days. Download of Insulin pump of past 14 days: she is entering in extra carbs to her pump that she isn'tactually eating Hypoglycemia awareness: yes, dizzy, lightheaded, nausea OTHER ISSUES: Ophthalmology 06/2020 Retinopathy: yes Podiatry: Neuropathy: none Exercise: walking 1 mile and steps at the park LABS TSH (UIU/ML) Date Value 06/03/2021 6.118 02/04/2021 3.712 08/14/2019 4.480 ALT (U/L) Date Value 12/08/2022 23 11/23/2022 23 11/07/2022 16 01/29/2022 28 12/27/2021 13 12/25/2021 13 Potassium Date Value 12/08/2022 4.1 mmol/L 11/24/2022 4.1 mmol/L 02/01/2022 3.7 MMOL/L 01/31/2022 3.7 MMOL/L Creatinine Date Value 12/08/2022 0.64 mg/dL 11/24/2022 0.59 mg/dL 11/23/2022 0.69 mg/dL 02/01/2022 0.64 MG/DL 01/31/2022 0.61 MG/DL 01/30/2022 0.68 MG/DL Hemoglobin A1C (%) Date Value 12/30/2021 6.2 02/04/2021 6.1 10/06/2020 6.7 Hemoglobin A1C (POCT) (%) Date Value 08/16/2022 7.0 11/25/2020 6.3 Albumin, Urine Random (mg/L) Date Value 03/21/2017 25.6 Microalbumin, Urine Random (UG/ML) Date Value 05/06/2019 LESS THAN 5.0 Creatinine, Ur Random (UCRR) (mg/dL) Date Value 03/21/2017 90.3 Albumin/Creat Ratio (mg/g) Date Value 03/21/2017 28 Glucose Date Value 12/08/2022 78 mg/dL 11/24/2022 65 mg/dL 11/23/2022 273 mg/dL 02/01/2022 104 MG/DL 01/31/2022 167 MG/DL 01/30/2022 87 MG/DL 08/31/2015 287 mg/dL Calcium (MG/DL) Date Value 02/01/2022 8.4 01/31/2022 9.1 Calcium, Total (mg/dL) Date Value 12/08/2022 9.4 11/24/2022 8.6 Vitamin D 25 Hydroxy (NG/ML) Date Value 02/04/2021 25.6 04/30/2019 15.8 Lipids: Cholesterol, Total Date Value 02/04/2021 161 MG/dL 08/14/2019 228 MG/DL 04/30/2019 206 MG/DL HDL Cholesterol (MG/DL) Date Value 02/04/2021 36 08/14/2019 38 04/30/2019 47 LDL Cholesterol (MG/DL) Date Value 02/04/2021 108 08/14/2019 149 04/30/2019 137 Triglyceride (MG/DL) Date Value 02/04/2021 84 08/14/2019 206 04/30/2019 110 REVIEW OF SYSTEMS General: no fever, chills Eyes: no blurred or double vision Cardiac: denies chest pain Pulmonary: denies shortness of breath GI: + abdominal pain, nausea : denies dysuria or frequency Neuro: no neuropathy Musc: denies weakness PHYSICAL EXAMINATION: BP 129/64 Pulse 73 Resp 18 Wt 185 lb (83.9kg) LMP 11/26/2022 General: alert, in no acute distress, well nourished. Lung: Unlabored on room air Neurological: alert and oriented x 3 IMPRESSION/PLAN Ms. Villa is a 27 year old female who returns to the Department of Endocrinology for diabetes management. (E10.65) Type 1 diabetes mellitus with hyperglycemia, with long-term current use of insulin ([facility]) (primary encounter diagnosis) (Z96.41) Insulin pump status (Z13.5) Screening for diabetic retinopathy Comment: HgbA1C 7.6 % Labs: 2022 Cr 0.64 GFR 124 Plan: 1) Keep glucose tablets or hard candy with you at all times in case of a low blood sugar 2) Please bring meter and/or log book with you to your appointments 3) Will send chart notes to [facility] so she can get the Guardian CGM. Plans to contact Zohreh to set up Medtronic 770G 4) Continue with current Insulin pump settings. She is not entering enough information into her pump to make changes today. 5) she has back up Insulin in case of Insulin pump failure, Baqsimi as well -Hypoglycemia guidelines reviewed -Recommended diet: Low carbohydrate, Low Added Fat, and No Added Salt -Recommended exercise: 150 minutes of exercise per week as goal -Monitor blood glucose 4 times per day. The patient was advised to contact the office if the blood sugar readings are consistently high or if having frequent hypoglycemia. -Driving and Diabetes has been reviewed with the patient Patient to continue to follow up with her Primary Care Provider and with other consultants regarding her other medical problems. Next visit in 3 months with FRIEDA Urena APRN.TECHNICAL PROGRAMS MANAGER Endocrinology & Metabolism [place] Some elements in this note were copied from my last note and have been updated as appropriate and reflect medical decision making today. [facility] History of Present illness Narrative* Radha Mandel MA - 01/25/2023 12:59 PM EDT Patient here today to recollect urine as previous urine culture was contaminated. Patient concernedas that was her second collection with multiple bacteria. Urine collected, dipped, and sent out forculture. documented in this encounterGrant Hospital05-31-2023 Miscellaneous Notes* Telephone Encounter - Radha Mandel MA - 01/25/2023 11:04 AM EDT Spoke with patient and she is concerned as she knows how to do a clean catch to collect a urine andit is showing multiple bacteria. Patient scheduled for [place] to collect another urine. Please sign orders. Thank you. * Telephone Encounter - Radha Mandel MA - 01/24/2023 1:58 PM EDT LM for patient to call the office. * Telephone Encounter - Radha Mandel MA - 01/24/2023 1:58 PM EDT ----- Message from Vivi Smith MD sent at 01/23/2023 5:58 AM EDT ----- Please call and notify patient urine culture shows multiple bacteria suggesting contamination. No uti based on this specimen documented in this encounterGrant Hospital05-30-2023 Miscellaneous Notes* Telephone Encounter - Vivi Smith MD - 01/24/2023 11:58 AM EDT Port Flush order in Outbox on RX paper as unable to write order in Epic * Telephone Encounter - Radha Mandel MA - 01/24/2023 11:37 AM EDT Yaima from [facility] called and they need an order for a port flush. Pleaseplace order and I will fax. documented in this encounterGrant Hospital05-26-2023 NoteHNO ID: [id number] Author: Nicolette Cox LPN Service: ? Author Type: LICENSED NURSE Type: Progress Notes Filed: 01/20/2023 3:16 PM Note Text: Gilda presents today for a 1 month follow up visit.Gilda continues to c/o abdominal pain that radiates to her back. She states she did not follow up with pain management.[facility]05-26-2023 NoteHNO ID: [id number] Author: Vivi Smith MD Service: ? Author Type: Physician Type: Progress Notes Filed: 01/20/2023 3:16 PM Note Text: 01/20/2023 This is a 27 year old female who presents today for: follow up Appointment with [facility]/Dr Hylton is 02/07/23 for possible upper GI endoscope and had recommended possible surgery. She states in the last 2 weeks has had left flank pain that she is unsure of the diagnosis. So far the only diagnosis she has been given has been gastroparesis. She admits to doing less and not exercising. She states this has helped her dealing with pain. She declines pain management as she realizes pain medications would not help her condition but was counseled other modalities could be recommended. As far as DM she states her glucose levels have been in the upper 200s/. She sees Endo next week. 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 Last seen 12/08/22 PSH: + Appendectomy Denies vaginal bleeding. States her urine was normal at the ER and hospital on prior admissions. She agrees to a urine culture and UA today. 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 VAMSI 11/2014 SECTION HX 02/25/2014 amairani 37 weeks PAST SURGICAL HISTORY OF Right 01/08/2020 REMOVE IMPLANTED MATERIAL POSTERIOR SEGMENT OF EYE, EXTRAOCULAR PICC LINE INSERT/CONSULT 01/09/2014 PORT Left VITRECTOMY MECHANICAL PARS PLANA 10/29/2012 PPV (Pars Plana Vitrectomy) OD VITRECTOMY MECHANICAL PARS PLANA 05/14/2014 PPV (Pars Plana Vitrectomy)/PCIOL OS XTRNL PT ACTIV ECG TRANSMIS W/LUBA left chest wall Current Outpatient Medications Medication Sig prochlorperazine (COMPAZINE) 10 mg tablet Take 1 tablet by mouth every 6 hours as needed. Lancets (MICROLET LANCET) lancets Use as instructed to test blood sugar 4 times daily. E10.65 blood sugar diagnostic (CONTOUR NEXT TEST STRIPS) test strip Use as instructed to check blood glucose 5 times daily. E10.65 glucagon (BAQSIMI) 3 mg/actuation nasal spray Use 1 [place] in the nose as needed for low blood sugar. May repeat after 15 minutes using a new device if there is no response. glucose 4 gram chewable tablet Take 4 tablets by mouth as needed. insulin glargine (LANTUS SOLOSTAR, BASAGLHAMMAD ARAUJOIKPEN) 100 unit/mL (3 mL) Inject 43 Units subcutaneously as directed in the event of Insulin pump failure. linaCLOtide (LINZESS) 72 mcg capsule Take 1 capsule by mouth once daily. Administer on an empty stomach. Swallow whole; DO NOT crush or chew. Acetone, Urine, Test (KETONE URINE TEST) Use as directed promethazine (PHENERGAN) 50 mg tab(s) Take 1 tablet by mouth every 8 hours as needed. SKYRIZI 150 mg/mL injection INJECT 150 MG UNDER THE SKIN EVERY 12 WEEKS hydrOXYzine HCl (ATARAX) 50 mg tablet Take 50 mg by mouth every 6 hours as needed. insulin aspart U-100 (NOVOLOG U-100 INSULIN ASPART) 100 unit/mL Use in the Insulin pump for TDD of 100 units. No current facility-administered medications for this visit. Social History Tobacco Use Smoking status: Former Packs/day: 0.30 Years: 8.00 Pack years: 2.40 Types: Cigarettes Quit date: 06/2019 Years since quittin.5 Smokeless tobacco: Never Vaping Use Vaping Use: Never used Substance Use Topics Alcohol use: Yes Comment: very rarely Drug use: Yes Types: Marijuana Comment: medical card previous REVIEW OF SYSTEMS: Review of Systems Constitutional: Negative for fatigue and fever. HENT: Negative for trouble swallowing. Respiratory: Negative for shortness of breath. Cardiovascular: Negative for chest pain. Gastrointestinal: Positive for abdominal pain. Genitourinary: Negative for difficulty urinating. Musculoskeletal: Positive for back pain. Skin: Negative for rash. PHYSICAL EXAM: BP 114/76 Pulse 71 Temp (Src) 97 (Temporal) Resp 18 Ht 5' 8.5 (1.74m) Wt 185 lb (83.9kg) SpO2 98% LMP 11/26/2022 BMI 27.72 kg/(m2). Physical Exam Vitals reviewed. Constitutional: General: She is not in acute distress. Appearance: Normal appearance. She is not ill-appearing, toxic-appearing or diaphoretic. HENT: Head: Normocephalic. Right Ear: Tympanic membrane, ear canal and external ear normal. Left Ear: Tympanic membrane, ear canal and external ear normal. Nose: No congestion. Mouth/Throat: Mouth: Mucous membranes are moist. Pharynx: Oropharynx is clear. Eyes: Extraocular Movements: Extraocular movements intact. Conjunctiva/sclera: Conjunc (more content not included)...[facility] 01-12-2023 NoteHNO ID: [id number] Author: Madonna Toro, DO Service: ? Author Type: Physician Type: Progress Notes Filed: 01/12/2023 1:32 PM Note Text: Kathleen Villa is a 27 year old female coming today for chief complaint of STD screening. Patient states that she was notified by a recent sex partner that he was going to get tested for a possible STD because he has another partner that tested positive for something. Patient thinks it might be trich. Patient denies S/S of infection. OB History T1 L2 SAB0 IAB0 Ectopic0 Multiple0 Live Births2 Patient's last menstrual period was 11/26/2022 (exact date). 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 VAMSI 11/2014 SECTION HX 02/25/2014 amairani 37 weeks PAST SURGICAL HISTORY OF Right 01/08/2020 REMOVE IMPLANTED MATERIAL POSTERIOR SEGMENT OF EYE, EXTRAOCULAR PICC LINE INSERT/CONSULT 01/09/2014 PORT Left VITRECTOMY MECHANICAL PARS PLANA 10/29/2012 PPV (Pars Plana Vitrectomy) OD VITRECTOMY MECHANICAL PARS PLANA 05/14/2014 PPV (Pars Plana Vitrectomy)/PCIOL OS XTRNL PT ACTIV ECG TRANSMIS W/LUBA left chest wall FAMILY HISTORY Problem Relation Age of Onset Cancer Mother 18 cervical Thyroid Mother Multiple Sclerosis Father other (mitral valve) Father Thyroid Sister Diabetes Maternal Grandmother type 2 diabetes Cataract Other maternal great grandma Glaucoma Other maternal great grandma Social History Tobacco Use Smoking status: Former Packs/day: 0.30 Years: 8.00 Pack years: 2.40 Types: Cigarettes Quit date: 06/2019 Years since quittin.5 Smokeless tobacco: Never Vaping Use Vaping Use: Never used Substance Use Topics Alcohol use: Yes Comment: very rarely Drug use: Yes Types: Marijuana Comment: medical card previous REVIEW OF SYSTEMS GENERAL: No weight loss, malaise or fevers GI: No nausea, vomiting, or diarrhea 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 The remainder of the review of systems is noncontributory PHYSICAL EXAMINATION: BP 100/70 (BP Site: Left Arm, BP Position: Sitting, BP Cuff Size: Regular Adult) Ht 5' 9 (1.753 m) Wt 190 lb 4.8 oz (86.3 kg) LMP 11/26/2022 (Exact Date) BMI 28.10 kg/m? General: healthy, alert, cooperative, pleasant, in no acute distress, overweight Breast : Abdomen: soft, nontender, nondistended Genital Urinary: vulva/vagina no lesions or discharge, cervix no lesions, discharge, or motion tenderness, uterus is anteverted, adnexa no palpable masses Vulva: Nonerythematous, normal genitalia. Vagina: Normal vagina with normal vaginal tone. Cervix: nulliparous, pink, and no discharge. Uterus: nontender, midline, and mobile. Adnexa: Bilaterally without overt masses and nontender. Thinprep pap collected? No. Culture for GC/Chlamydia collected? Yes. Ext: no edema in LE bilaterally Skin: Clear without rash (Z11.3) Screening examination for STD (sexually transmitted disease) (primary encounter diagnosis) Plan: GC/CHLAMYDIA DNA DET, WET PREP, HEP C AB IA W/CONF SCRN, HEP B SURF AG SCRN, HIV 1 2 COMBO(AG/AB),WITH REFLEX TO DIFFERENTIATION, TREPONEMA PALLIDUM SCREEN, HERPES SIMPLEX TYPE 1 AND 2 IG Call with results. Madonna Toro, [facility]05-18-2023 NoteHNO ID: [id number] Author: Faviola Engle MA Service: ? Author Type: Metallurgical Technician Type: Progress Notes Filed: 01/12/2023 1:32 PM Note Text: Pt was exposed to a std.[facility]05-16-2023 Miscellaneous Notes* Telephone Encounter - Dori Chapman RN - 01/10/2023 8:58 AM EDT I called pt - pt confirmed 1:00p on Thursday documented in this encounterGrant Hospital05-09-2023 Miscellaneous Notes* Telephone Encounter - Lucius Santillan RN - 01/03/2023 12:54 PM EDT Form faxed * Telephone Encounter - Kvng Lewis MD - 01/03/2023 12:38 PM EDT Form signed * Telephone Encounter - David De Jesus RN - 01/03/2023 11:11 AM EDT Placed your in box * Telephone Encounter - Tessy Trujillo - 01/03/2023 8:38 AM EDT Patient has been identified by name and date of : Yes Type of form: CGM with Physicians Order Form received via: Fax When form is completed, fax form to fax number provided. Form has been forwarded to: SILVINO Trujillo documented in this encounterGrant Hospital04-14-2023 Miscellaneous Notes* Telephone Encounter - Nicolette Cox LPN - 12/09/2022 1:04 PM EDT Returned call to patient to let her know that Dr. Smith states he can bridge pain medication until Gilda gets in with pain management. Referral completed today. Gilda states she did get a scheduled appt with maria a Keller for January. * Telephone Encounter - Nicolette Cox LPN - 12/09/2022 9:01 AM EDT Gilda called in and states ER referred her to GI doctor but she is unable to get in for a month withDr. Love. She is wondering if there was a GI she could get in to see sooner. She states she also left a mychart message for Dr. Joh[facility] seen. She states she was sent home with a prescription for hydrocodone #12 tablets. She is asking if you can continue to prescribe pain medication until she gets in with GI doctor. Please advise. She states she scheduled a follow up appt with you on 01/20/23 but wants to know if you want to seeher sooner. documented in this encounterGrant Hospital04-13-2023 History of Present illness Narrative* Nicolette Cox LPN - 12/08/2022 1:54 PM EDT Gilda presents today to establish care and for a hospital follow up for Gastroparesis. Gilda c/o mid lower abdominal discomfort that started when she was discharged from the hospital. She describes thepain as electricity that starts below my belly button and spiders up. She c/o frequent nausea. Denies emesis. Denies fever. She c/o diarrhea since before going to the hospital, she states she has taken immodium but it has not helped. Bp checked manually 142/86, electronically 133/75 * Vivi Smith MD - 12/08/2022 1:45 PM EDT Images from the original note were not included. 12/08/2022 This is a 27 year old female who presents today for:new patient establishment of care. She was just discharged from the hospital 11/26/2022 with unexplained lower abdominal pain that worsens after she urinates. Patient has had extensive workup with CT and US. Patient was told she has gastroparesis but states this pain is different . She also states the levsin that was prescribed needs to be prior authorized and the ED /hospital was unable to do so. Associated with her symptoms are non bloody diarrhea for several weeks. GI had suggested an EGD but no indication for colonoscope. PSH: + Appendectomy Denies vaginal bleeding. States her urine was normal at the ER and hospital on prior admissions. Discharge Summary Fide Pitts MD (Physician) [facility] Medicine Expand All Collapse All DISCHARGE SUMMARY PATIENT NAME: Kathleen Villa ADMISSION DATE: 11/23/2022 DISCHARGE DATE: 11/26/2022 ATTENDING PHYSICIAN: Fide Pitts MD Code Status: Full Code Highest Readmission Risk Score: 10 The 30 day readmissions risk score is derived from an internally validated risk model which evaluates patient level characteristics, utilization history, medication orders and lab results up until the day of discharge. Patients with a score of 40 or above are considered highest risk for readmission. Specific patient level drivers will be listed at the bottom of the summary. CONSULTING TEAMS DURING HOSPITALIZATION: CHIEF COMPLAINT: Abdominal Pain REASON FOR HOSPITALIZATION: Abdominal Pain FINAL DIAGNOSIS: Abdominal Pain OPERATIONS/PROCEDURES DURING HOSPITALIZATION: HOSPITAL COURSE: The patient is a 27-year-old female past medical history of diabetes Marfan's gastroparesis presented to the hospital with complaints of nausea vomiting and some lower abdominal pain. She stated it started earlier today. She claims she had a loose stool earlier. She claims no burning with urination. No history of bowel obstruction. Denies fever and chills. Gastroparesis thought to be the cause of patient's nausea vomiting and abdominal discomfort. GI on consult. KUB showed curvilinear gas lucencies within the pelvis, possibly related to the bladder. CTabdomen/pelvis showed no acute process. Right upper quadrant ultrasound was negative. Gastroenterology recommending PPI and sucralfate, outpatient EGD. Patients pain was improved and she was tolerating a diet at time of discharge. PATIENT CONDITION AT DISCHARGE: Stable DISCHARGE DISPOSITION: Home VITALS: Patient Vitals for the past 12 hrs: BP Temp Temp src Pulse Resp SpO2 11/26/22 0800 114/66 36.7 C (98.1 F) Oral 60 16 98 % PHYSICAL EXAM: Constitutional: Appearance: Normal appearance. She is obese. HENT: Head: Normocephalic. Eyes: Conjunctiva/sclera: Conjunctivae normal. Pupils: Pupils are equal, round, and reactive to light. Neck: Trachea: Trachea normal. Cardiovascular: Rate and Rhythm: Normal rate and regular rhythm. Pulses: Normal pulses. Heart sounds: Normal heart sounds, S1 normal and S2 normal. No murmur heard. No friction rub. No gallop. Pulmonary: Effort: Pulmonary effort is normal. No respiratory distress. Breath sounds: Normal breath sounds. No stridor. No wheezing or rhonchi. Abdominal: General: Abdomen is flat. Bowel sounds are normal. There is no distension. Palpations: Abdomen is soft. Tenderness: There is no abdominal tenderness. There is no guarding or rebound. Musculoskeletal: General: Normal range of motion. Cervical back: Normal range of motion. Right lower leg: No edema. Left lower leg: No edema. Skin: General: Skin is warm and dry. Capillary Refill: Capillary refill takes less than 2 seconds. Neurological: General: No focal deficit present. Mental Status: She is alert and oriented to person, place, and time. Cranial Nerves: Cranial nerves 2-12 are intact. Sensory: Sensation is intact. Motor: No weakness. Psychiatric: Attention and Perception: Attention normal. Mood and Affect: Mood normal. Behavior: Behavior is cooperative. Thought Content: Thought content normal. INFORMATION PROVIDED TO PATIENT: ADDITIONAL INSTRUCTIONS: ALLERGIES: ALLERGIES ALLERGIES Allergen Reactions Percocet [Oxycodone* Rash, Intolerance, Itching Adhesive Tape (Lidia* Rash Indomethacin Rash Keflex [Cephalexin] Other: See Comments Makes infection worse- patient denies this on 02/25/2014 Morphine Rash, Itching Zofran [Ondansetron* Other: See Comments syncope Adhesive Rash DISCHARGE MEDICATIONS: Current Discharge Medication List START taking these medications hyoscyamine sublingual (LEVSIN SL) 0.25 mg Dissolve 0.25 mg under the tongue before meals and at bedtime. Qty: 56 tablet Refills: 0 prochlorperazine (COMPAZINE) 10 mg Take 10 mg by mouth every 6 hours as needed. Qty: 28 tablet Refills: 0 sucralfate (CARAFATE) 1 g Take 1 g by mouth before meals and at bedtime. Qty: 120 tablet Refills: 0 metoclopramide HCl (REGLAN) 10 mg Take 10 mg by mouth three times daily. Qty: 21 tablet Refills: 0 CONTINUE these medications which have NOT CHANGED insulin aspart U-100 (NOVOLOG U-100 INSULIN ASPART) 100 unit/mL Use in the Insulin pump for TDD of 100 units. Qty: 90 mL Refills: 1 Associated Diagnoses:Type 1 diabetes mellitus with hyperglycemia, with long-term current use of insulin ([facility]); Insulin pump status LINZESS 72 mcg Take 72 mcg by mouth once daily. <span hidden class=[email or web address]></span>Administer on an empty stomach. Swallow whole; DO NOT crush or chew. Qty: 30 capsule Refills: 4 Associated Diagnoses:Chronic idiopathic constipation promethazine (PHENERGAN) 50 mg Take 50 mg by mouth every 8 hours as needed. Qty: 30 tablet Refills: 2 Associated Diagnoses:Chronic nausea SKYRIZI 150 mg/mL injection INJECT 150 MG UNDER THE SKIN EVERY 12 WEEKS Lancets (MICROLET LANCET) lancets Use as instructed to test blood sugar 4 times daily. E10.65 Qty: 400 Each Refills: 3 Associated Diagnoses:Type 1 diabetes mellitus with hyperglycemia, with long-term current use of insulin ([facility]); Insulin pump status blood sugar diagnostic (CONTOUR NEXT TEST STRIPS) test strip Use as instructed to check blood glucose 5 times daily. E10.65 Qty: 500 Strip Refills: 3 Associated Diagnoses:Type 1 diabetes mellitus with hyperglycemia, with long-term current use of insulin ([facility]); Insulin pump status BAQSIMI 3 mg Use 3 mg in the nose as needed for low blood sugar. <span hidden class=[email or web address]></span>May repeat after 15 minutes using a new device if there is no response. Qty: 2 Each Refills: 2 Associated Diagnoses:Type 1 diabetes mellitus with hyperglycemia, with long-term current use of insulin ([facility]); Insulin pump status glucose 16 g Take 16 g by mouth as needed. Qty: 100 tablet Refills: 11 Associated Diagnoses:Type 1 diabetes mellitus with hyperglycemia, with long-term current use of insulin ([facility]); Insulin pump status insulin glargine (LANTUS SOLOSTAR, BASAGLAR KWIKPEN) 100 unit/mL (3 mL) Inject 43 Units subcutaneously as directed in the event of Insulin pump failure. Qty: 15 mL Refills: 1 Comments: Generic or brand: dispense product preferred by patient/insurance unless BRET flag is selected. Associated Diagnoses:Type 1 diabetes mellitus with hyperglycemia, with long-term current use of insulin ([facility]); Insulin pump status Acetone, Urine, Test (KETONE URINE TEST) Use as directed Qty: 100 Strip Refills: 5 Associated Diagnoses: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) hydrOXYzine HCl (ATARAX) 50 mg Take 50 mg by mouth every 6 hours as needed. FUTURE APPOINTMENTS: Follow Up with Gastroenterology: Ricci Burgess MD Discharge Information Row Name ED to Hosp-Admission (Current) from 11/23/2022 in [facility] 2M MED/SURG Medical Follow-Up Appointment Specialty Primary Care Provider Provider Name Dr. Smith Address [address] [place] [address], [place] [address] Appointment Date 12/08/22 Appointment Time 1:45pm The patient's risk for 30-day readmission is determined using the following contributing factors: Pt variables contributing to increased readmission risk: 18 Active Medication Orders 12 Most Recent BUN Result 9.5 First Resulted Calcium During Admission 3 Number of Previous ED Visits (6 mos.) 1 Previous ED Visit (6 mos.)? 1 Insurance - Medicare DISCHARGE TIME: 50 Minutes SIGNATURE: Fide Pitts MD DATE: November 26, 2022 TIME: 12:42 PM Hospital doctor note: Assessment/Plan Gastroparesis-this is thought to be the cause of patient's nausea vomiting and abdominal discomfort. Will order Reglan, consult GI, give IV fluids, nausea medication, pain meds. She has had multiple previous CT scans of the abdomen pelvis the latest earlier in October. We will check a KUB to rule outbowel obstruction. UA was checked and negative. Patient reports a prior appendectomy. Lipase was checked and negative Diabetes-we will order sliding scale insulin, monitor blood sugars closely with poor oral intake Marijuana abuse-could be a contributing factor to nausea and vomiting, would encourage cessation Marfan's-defer to outpatient physicians for management, patient has required previous surgeries on her aortic arch as well as eyes SIGNATURE: Leticia Gardiner, GI consult: Impression/Recommendations Insulin-dependent diabetes mellitus type 1 with gastroparesis: Patient follows with commercial decorator Dr. Leticia Hylton with several smart pill studies that identified gastroparesis. She trialed Reglan and EES with no results. Patient uses marijuana to control her nausea. Finds Compazine to be most effective when she is hospitalized. Current itching noted after receiving Dilaudid but no rash. Ongoing severe upper abdominal pain. Dr. Riley had discussed with her possible surgical intervention at the pylorus. She had an EGD several years ago but cannot recall findings. -Would recommend trialing the Compazine that she finds effective over the Phenergan -PPI and consider adding sucralfate -Would recommend an outpatient EGD to evaluate for pyloric stenosis but this was not seen on the smart pill -Patient often uses Linzess for her constipation -Can consider the new Gimoti is inhaled Reglan often bypassing the delayed absorption please and improves control over the gastroparesis. 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 VAMSI 11/2014 SECTION HX 02/25/2014 amairani 37 weeks PAST SURGICAL HISTORY OF Right 01/08/2020 REMOVE IMPLANTED MATERIAL POSTERIOR SEGMENT OF EYE, EXTRAOCULAR PICC LINE INSERT/CONSULT 01/09/2014 PORT Left VITRECTOMY MECHANICAL PARS PLANA 10/29/2012 PPV ([place] Vitrectomy) OD VITRECTOMY MECHANICAL PARS PLANA 05/14/2014 PPV ([place] Vitrectomy)/PCIOL OS XTRNL PT ACTIV ECG TRANSMIS W/R&I </30 DAYS 09/05/2014 left chest wall Current Outpatient Medications Medication Sig insulin aspart U-100 (NOVOLOG U-100 INSULIN ASPART) 100 unit/mL Use in the Insulin pump for TDD of 100 units. Lancets (MICROLET LANCET) lancets Use as instructed to test blood sugar 4 times daily. E10.65 blood sugar diagnostic (CONTOUR NEXT TEST STRIPS) test strip Use as instructed to check blood glucose 5 times daily. E10.65 glucagon (BAQSIMI) 3 mg/actuation nasal spray Use 1 [place] in the nose as needed for low blood sugar. May repeat after 15 minutes using a new device if there is no response. glucose 4 gram chewable tablet Take 4 tablets by mouth as needed. insulin glargine (LANTUS SOLOSTAR, BASAGLAR KWIKPEN) 100 unit/mL (3 mL) Inject 43 Units subcutaneously as directed in the event of Insulin pump failure. Acetone, Urine, Test (KETONE URINE TEST) Use as directed promethazine (PHENERGAN) 50 mg tab(s) Take 1 tablet by mouth every 8 hours as needed. SKYRIZI 150 mg/mL injection INJECT 150 MG UNDER THE SKIN EVERY 12 WEEKS hydrOXYzine HCl (ATARAX) 50 mg tablet Take 50 mg by mouth every 6 hours as needed. sucralfate (CARAFATE) 1 gram tablet Take 1 tablet by mouth before meals and at bedtime. (Patient not taking: Reported on 12/08/2022) linaCLOtide (LINZESS) 72 mcg capsule Take 1 capsule by mouth once daily. Administer on an empty stomach. Swallow whole; DO NOT crush or chew. (Patient not taking: Reported on 12/08/2022) No current facility-administered medications for this visit. Social History Tobacco Use Smoking status: Former Packs/day: 0.30 Years: 8.00 Pack years: 2.40 Types: Cigarettes Quit date: 06/2019 Years since quittin.4 Smokeless tobacco: Never Vaping Use Vaping Use: Never used Substance Use Topics Alcohol use: Yes Comment: very rarely Drug use: Yes Types: Marijuana Comment: medical card previous REVIEW OF SYSTEMS: Review of Systems Constitutional: Negative for fatigue and fever. HENT: Negative for trouble swallowing. Gastrointestinal: Positive for abdominal pain. Genitourinary: Negative for frequency. Pain is worse after urinating Musculoskeletal: Negative for back pain. Skin: Negative for rash. PHYSICAL EXAM: BP 142/86 Pulse 90 Temp (Src) 97 (Temporal) Resp 20 Ht 5' 9 (1.75m) Wt 187 lb 6.4 oz (85.0kg) SpO2 98% LMP 10/13/2022 BMI 27.66 kg/(m^2). Physical Exam Constitutional: General: She is in acute distress. HENT: Right Ear: Tympanic membrane normal. Left Ear: Tympanic membrane normal. Mouth/Throat: Mouth: Mucous membranes are moist. Pharynx: Oropharynx is clear. Eyes: Extraocular Movements: Extraocular movements intact. Pupils: Pupils are equal, round, and reactive to light. Cardiovascular: Rate and Rhythm: Normal rate and regular rhythm. Pulmonary: Effort: Pulmonary effort is normal. Breath sounds: Normal breath sounds. Abdominal: Palpations: There is no mass. Tenderness: There is abdominal tenderness. There is guarding. There is no rebound. Hernia: A hernia is present. Comments: Umbilical, bilateral right and left lower quadrant tenderness with pain out of proportion Skin: Findings: No rash. Neurological: General: No focal deficit present. ASSESSMENT/PLAN: Encounter Diagnosis ICD-10-CM 1. Gastroparesis due to DM ([facility]) E11.43 K31.84 2. 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 Primary hypertension I10 4. Chronic nausea R11.0 5. 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 ([facility]) E10.3553 6. Marfan syndrome Q87.40 7. PTSD (post-traumatic stress disorder) F43.10 8. Generalized abdominal pain R10.84 Per Hospital note reviewed but patient states her pain is different Will refer down to [facility] ED for further evaulation Stable at the moment Unclear etiology On Insulin Pump. HBA1c 3 months ago was 7 Noted Stable Pain out of portion. Sent by private vehicle to rule out blood clot/mesenteric ischemia and furtheretiologies. Vivi Smith MD documented in this encounterGrant Hospital04-10-[facility]23 Miscellaneous Notes* Telephone Encounter - Lisa Aguilar LPN - 12/05/2022 3:09 PM EDT Form faxed to [facility]. Lisa Aguilar LPN * Telephone Encounter - Autumn Valadez APRN.FRIEDA - 12/05/2022 12:32 PM EDT Signed Autumn Valadez APRN.FRIEDA * Telephone Encounter - Lisa Aguilar LPN - 12/05/2022 10:04 AM EDT JOSE:08/16/2022 NOV: 12/07/2022 Called patient Verified she has new pump medtronic 770G and will be meeting with [facility] for education on newpump. Patient currently has enough supplies from Medtronic 630G until she makes the transfer to the new on. She also prefers to use a sensor that connects with Medtronic and will be issued a new Guardian sensor. She will call with any changes. Forms for [facility] needed clarification of of make and model. Placed form on desk for review. Please review and advise. Thank You, Lisa Aguilar LPN * Telephone Encounter - Jackeline Maria - 12/02/2022 2:36 PM EDT Patient has been identified by name and date of : Yes Type of form: [facility] form requesting question #6 sign and date Form received via: Fax When form is completed, fax form to fax number provided. Form has been forwarded to: Provider's mailbox. Provider name: Dr Joshua Maria * Telephone Encounter - David De Jesus RN - 11/23/2022 10:09 AM EDT INsulin approved 11/12/22-12/14/23 * Telephone Encounter - Lisa Aguilar LPN - 11/08/2022 2:19 PM EDT Form and documentation faxed to [facility]. Lisa Aguilar LPN * Telephone Encounter - Kvng Lewis MD - 11/08/2022 12:49 PM EDT Form signed. * Telephone Encounter - Florence Murillo RN - 11/07/2022 3:19 PM EDT Received form from [facility] Medical Form, 6 months of OV notes and CGM download on desk, please sign * Telephone Encounter - Lisa Aguilar LPN - 11/04/2022 11:15 AM EST Completed form faxed to [facility]. Lisa Aguilar LPN * Telephone Encounter - Kvng Lewis MD - 11/02/2022 3:36 PM EST Form signed on my desk. * Telephone Encounter - Lisa Aguilar LPN - 11/02/2022 3:03 PM EST JSOE: 08/16/2022 NOV: 12/07/2022 Forms placed on Provider's desk. Please review and advise. Thank You, Lisa Aguilar LPN * Telephone Encounter - Rose Hayes Pss - 10/31/2022 12:55 PM EST Patient has been identified by name and date of : Yes Type of form: [facility] MEDICAL / CGM Form received via: Fax When form is completed, fax form to fax number provided.[phone] Form has been forwarded to: SILVINO Hayes Pss documented in this encounterGrant Hospital03-29-2023 History of Past illness Narrative* Problem Noted Date Resolved Date Gastroparesis 11/23/2022 11/26/2022 01/28/2016 03/06/2017 Pre-existing type 1 diabetes mellitus in in first trimester 08/05/2015 10/03/2018 Fluid overload 12/10/2014 12/15/2014 Overview: Postoperative fluid overload A/P: Positive fluid balance. cont diuresis Tachycardia, unspecified 12/10/201412/12/ 015 Overview: Noted to have sinus tachycardia introap and post op A/P: HR improved with BB. Cont BB Anxiety 12/10/2014 12/13/2014 Overview: anxious at times, flat affect shaking legs post op A/p: improving, PRN xanax , resolved DVT prophylaxis 02/25/2014 04/16/2014 Overview: - IPCs care and examination 02/25/2014 04/16/2014 Overview: - Delivered by on 02/25/2014 morning - On fentanyl gtt per [facility] Plan: - [facility] [employer] team to round on patient and manage care Diabetes mellitus in 12/25/2013 0 04/16/2014 11/22/2013 04/16/2014 Overview: Recommended she consider inpatient management of her issues --- Reviewed importance of compliance. - Normal growth on ultrasound today. Biophysical profile score is reassuring. - VSD - appears smaller than on last scan - Discussed delivery at 37 weeks in the SDU - Possible risk for RDS in the but higher risks to her and the baby if is prolonged - Earlier delivery if any indications arise --- Follows with Dr. Garcia at [facility] Plan: - Continuous monitoring - F/u [employer] [facility] recs GBS (group B Streptococcus carrier), +RV culture @ 22 wks 11/11/2013 04/16/2014 Hypertension in , antepartum 09/19/2013 01/08/2014 DVT prophylaxis 12/25/2012 09/04/2013 Overview: IPCs DISPOSITION AND FOLLOW-UP 12/25/20122013 Overview: Full code Retinal detachment 10/26/2012 12/25/2012 documented as of this encounter (statuses as of 12/09/2022) [facility] of Past illness Narrative* Problem Noted Date Resolved Date Gastroparesis 11/23/2022 11/26/2022 01/28/2016 03/06/2017 Pre-existing type 1 diabetes mellitus in in first trimester 08/05/2015 10/03/2018 Fluid overload 12/10/2014 12/15/2014 Overview: Postoperative fluid overload A/P: Positive fluid balance. cont diuresis Tachycardia, unspecified 12/10/2014 015 Overview: Noted to have sinus tachycardia introap and post op A/P: HR improved with BB. Cont BB Anxiety 12/10/2014 12/13/2014 Overview: anxious at times, flat affect shaking legs post op A/p: improving, PRN xanax , resolved DVT prophylaxis 02/25/2014 04/16/2014 Overview: - IPCs care and examination 02/25/2014 04/16/2014 Overview: - Delivered by on 02/25/2014 morning - On fentanyl gtt per [facility] Plan: - [facility] [employer] [facility] team to round on patient and manage care Diabetes mellitus in 12/25/2013 0 04/16/2014 11/22/2013 04/16/2014 Overview: Recommended she consider inpatient management of her issues --- Reviewed importance of compliance. - Normal growth on ultrasound today. Biophysical profile score is reassuring. - VSD - appears smaller than on last scan - Discussed delivery at 37 weeks in the SDU - Possible risk for RDS in the but higher risks to her and the baby if is prolonged - Earlier delivery if any indications arise --- Follows with Dr. Garcia at [facility] Plan: - Continuous monitoring - F/u [employer] [facility] recs GBS (group B Streptococcus carrier), +RV culture @ 22 wks 11/11/2013 04/16/2014 Hypertension in , antepartum 09/19/2013 01/08/2014 DVT prophylaxis 12/25/2012 09/04/2013 Overview: IPCs DISPOSITION AND FOLLOW-UP 12/25/20122013 Overview: Full code Retinal detachment 10/26/2012 12/25/2012 documented as of this encounter (statuses as of 12/09/2022) [facility] of Past illness Narrative* Problem Noted Date Resolved Date Gastroparesis 11/23/2022 11/26/2022 01/28/2016 03/06/2017 Pre-existing type 1 diabetes mellitus in in first trimester 08/05/2015 10/03/2018 Fluid overload 12/10/2014 12/15/2014 Overview: Postoperative fluid overload A/P: Positive fluid balance. cont diuresis Tachycardia, unspecified 12/10/2014 015 Overview: Noted to have sinus tachycardia introap and post op A/P: HR improved with BB. Cont BB Anxiety 12/10/2014 12/13/2014 Overview: anxious at times, flat affect shaking legs post op A/p: improving, PRN xanax , resolved DVT prophylaxis 02/25/2014 04/16/2014 Overview: - IPCs care and examination 02/25/2014 04/16/2014 Overview: - Delivered by on 02/25/2014 morning - On fentanyl gtt per [facility] [employer] [facility] Plan: - [facility] [employer] [facility] team to round on patient and manage care Diabetes mellitus in 12/25/2013 0 04/16/2014 11/22/2013 04/16/2014 Overview: Recommended she consider inpatient management of her issues --- Reviewed importance of compliance. - Normal growth on ultrasound today. Biophysical profile score is reassuring. - VSD - appears smaller than on last scan - Discussed delivery at 37 weeks in the SDU - Possible risk for RDS in the but higher risks to her and the baby if is prolonged - Earlier delivery if any indications arise --- Follows with Dr. Garcia at [facility] Plan: - Continuous monitoring - F/u [employer] recs GBS (group B Streptococcus carrier), +RV culture @ 22 wks 11/11/2013 04/16/2014 Hypertension in , antepartum 09/19/2013 01/08/2014 DVT prophylaxis 12/25/2012 09/04/2013 Overview: IPCs DISPOSITION AND FOLLOW-UP 12/25/20122013 Overview: Full code Retinal detachment 10/26/2012 12/25/2012 documented as of this encounter (statuses as of 01/03/2023) [facility] of Past illness Narrative* Problem Noted Date Resolved Date Gastroparesis 11/23/2022 11/26/2022 01/28/2016 03/06/2017 Pre-existing type 1 diabetes mellitus in in first trimester 08/05/2015 10/03/2018 Fluid overload 12/10/2014 12/15/2014 Overview: Postoperative fluid overload A/P: Positive fluid balance. cont diuresis Tachycardia, unspecified 12/10/2014 015 Overview: Noted to have sinus tachycardia introap and post op A/P: HR improved with BB. Cont BB Anxiety 12/10/2014 12/13/2014 Overview: anxious at times, flat affect shaking legs post op A/p: improving, PRN xanax , resolved DVT prophylaxis 02/25/2014 04/16/2014 Overview: - IPCs care and examination 02/25/2014 04/16/2014 Overview: - Delivered by on 02/25/2014 morning - On fentanyl gtt per [employer] [facility] Plan: - [facility] [employer] [facility] team to round on patient and manage care Diabetes mellitus in 12/25/2013 0 04/16/2014 11/22/2013 04/16/2014 Overview: Recommended she consider inpatient management of her issues --- Reviewed importance of compliance. - Normal growth on ultrasound today. Biophysical profile score is reassuring. - VSD - appears smaller than on last scan - Discussed delivery at 37 weeks in the SDU - Possible risk for RDS in the but higher risks to her and the baby if is prolonged - Earlier delivery if any indications arise --- Follows with Dr. Garcia at [facility] Plan: - Continuous monitoring - F/u [employer] recs GBS (group B Streptococcus carrier), +RV culture @ 22 wks 11/11/2013 04/16/2014 Hypertension in , antepartum 09/19/2013 01/08/2014 DVT prophylaxis 12/25/2012 09/04/2013 Overview: IPCs DISPOSITION AND FOLLOW-UP 12/25/20122013 Overview: Full code Retinal detachment 10/26/2012 12/25/2012 documented as of this encounter (statuses as of 01/10/2023) [facility] of Past illness Narrative* Problem Noted Date Resolved Date Gastroparesis 11/23/2022 11/26/2022 01/28/2016 03/06/2017 Pre-existing type 1 diabetes mellitus in in first trimester 08/05/2015 10/03/2018 Fluid overload 12/10/2014 12/15/2014 Overview: Postoperative fluid overload A/P: Positive fluid balance. cont diuresis Tachycardia, unspecified 12/10/2014 015 Overview: Noted to have sinus tachycardia introap and post op A/P: HR improved with BB. Cont BB Anxiety 12/10/2014 12/13/2014 Overview: anxious at times, flat affect shaking legs post op A/p: improving, PRN xanax , resolved DVT prophylaxis 02/25/2014 04/16/2014 Overview: - IPCs care and examination 02/25/2014 04/16/2014 Overview: - Delivered by on 02/25/2014 morning - On fentanyl gtt per [employer] [facility] Plan: - [employer] team to round on patient and manage care Diabetes mellitus in 12/25/2013 0 04/16/2014 11/22/2013 04/16/2014 Overview: Recommended she consider inpatient management of her issues --- Reviewed importance of compliance. - Normal growth on ultrasound today. Biophysical profile score is reassuring. - VSD - appears smaller than on last scan - Discussed delivery at 37 weeks in the SDU - Possible risk for RDS in the but higher risks to her and the baby if is prolonged - Earlier delivery if any indications arise --- Follows with Dr. Garcia at [facility] Plan: - Continuous monitoring - F/u [employer] recs GBS (group B Streptococcus carrier), +RV culture @ 22 wks 11/11/2013 04/16/2014 Hypertension in , antepartum 09/19/2013 01/08/2014 DVT prophylaxis 12/25/2012 09/04/2013 Overview: IPCs DISPOSITION AND FOLLOW-UP 12/25/20122013 Overview: Full code Retinal detachment 10/26/2012 12/25/2012 documented as of this encounter (statuses as of 01/24/2023) [facility] of Past illness Narrative* Problem Noted Date Resolved Date Gastroparesis 11/23/2022 11/26/2022 01/28/2016 03/06/2017 Pre-existing type 1 diabetes mellitus in in first trimester 08/05/2015 10/03/2018 Fluid overload 12/10/2014 12/15/2014 Overview: Postoperative fluid overload A/P: Positive fluid balance. cont diuresis Tachycardia, unspecified 12/10/2014 015 Overview: Noted to have sinus tachycardia introap and post op A/P: HR improved with BB. Cont BB Anxiety 12/10/2014 12/13/2014 Overview: anxious at times, flat affect shaking legs post op A/p: improving, PRN xanax , resolved DVT prophylaxis 02/25/2014 04/16/2014 Overview: - IPCs care and examination 02/25/2014 04/16/2014 Overview: - Delivered by on 02/25/2014 morning - On fentanyl gtt per [employer] [facility] Plan: - [employer] [facility] team to round on patient and manage care Diabetes mellitus in 12/25/2013 0 04/16/2014 11/22/2013 04/16/2014 Overview: Recommended she consider inpatient management of her issues --- Reviewed importance of compliance. - Normal growth on ultrasound today. Biophysical profile score is reassuring. - VSD - appears smaller than on last scan - Discussed delivery at 37 weeks in the SDU - Possible risk for RDS in the but higher risks to her and the baby if is prolonged - Earlier delivery if any indications arise --- Follows with Dr. Garcia at [facility] Plan: - Continuous monitoring - F/u [employer] recs GBS (group B Streptococcus carrier), +RV culture @ 22 wks 11/11/2013 04/16/2014 Hypertension in , antepartum 09/19/2013 01/08/2014 DVT prophylaxis 12/25/2012 09/04/2013 Overview: IPCs DISPOSITION AND FOLLOW-UP 12/25/20122013 Overview: Full code Retinal detachment 10/26/2012 12/25/2012 documented as of this encounter (statuses as of 01/25/2023) [facility] of Past illness Narrative* Problem Noted Date Resolved Date Gastroparesis 11/23/2022 11/26/2022 01/28/2016 03/06/2017 Pre-existing type 1 diabetes mellitus in in first trimester 08/05/2015 10/03/2018 Fluid overload 12/10/2014 12/15/2014 Overview: Postoperative fluid overload A/P: Positive fluid balance. cont diuresis Tachycardia, unspecified 12/10/2014 015 Overview: Noted to have sinus tachycardia introap and post op A/P: HR improved with BB. Cont BB Anxiety 12/10/2014 12/13/2014 Overview: anxious at times, flat affect shaking legs post op A/p: improving, PRN xanax , resolved DVT prophylaxis 02/25/2014 04/16/2014 Overview: - IPCs care and examination 02/25/2014 04/16/2014 Overview: - Delivered by on 02/25/2014 morning - On fentanyl gtt per [employer] Plan: - [employer] team to round on patient and manage care Diabetes mellitus in 12/25/2013 0 04/16/2014 11/22/2013 04/16/2014 Overview: Recommended she consider inpatient management of her issues --- Reviewed importance of compliance. - Normal growth on ultrasound today. Biophysical profile score is reassuring. - VSD - appears smaller than on last scan - Discussed delivery at 37 weeks in the SDU - Possible risk for RDS in the but higher risks to her and the baby if is prolonged - Earlier delivery if any indications arise --- Follows with Dr. Garcia at [facility] Plan: - Continuous monitoring - F/u [employer] recs GBS (group B Streptococcus carrier), +RV culture @ 22 wks 11/11/2013 04/16/2014 Hypertension in , antepartum 09/19/2013 01/08/2014 DVT prophylaxis 12/25/2012 09/04/2013 Overview: IPCs DISPOSITION AND FOLLOW-UP 12/25/20122013 Overview: Full code Retinal detachment 10/26/2012 12/25/2012 documented as of this encounter (statuses as of 01/25/2023) [facility] of Past illness Narrative* Problem Noted Date Resolved Date Gastroparesis 11/23/2022 11/26/2022 01/28/2016 03/06/2017 Pre-existing type 1 diabetes mellitus in in first trimester 08/05/2015 10/03/2018 Fluid overload 12/10/2014 12/15/2014 Overview: Postoperative fluid overload A/P: Positive fluid balance. cont diuresis Tachycardia, unspecified 12/10/2014 015 Overview: Noted to have sinus tachycardia introap and post op A/P: HR improved with BB. Cont BB Anxiety 12/10/2014 12/13/2014 Overview: anxious at times, flat affect shaking legs post op A/p: improving, PRN xanax , resolved DVT prophylaxis 02/25/2014 04/16/2014 Overview: - IPCs care and examination 02/25/2014 04/16/2014 Overview: - Delivered by on 02/25/2014 morning - On fentanyl gtt per [employer] Plan: - [employer] team to round on patient and manage care Diabetes mellitus in 12/25/2013 0 04/16/2014 11/22/2013 04/16/2014 Overview: Recommended she consider inpatient management of her issues --- Reviewed importance of compliance. - Normal growth on ultrasound today. Biophysical profile score is reassuring. - VSD - appears smaller than on last scan - Discussed delivery at 37 weeks in the SDU - Possible risk for RDS in the but higher risks to her and the baby if is prolonged - Earlier delivery if any indications arise --- Follows with Dr. Garcia at [facility] Plan: - Continuous monitoring - F/u [employer] recs GBS (group B Streptococcus carrier), +RV culture @ 22 wks 11/11/2013 04/16/2014 Hypertension in , antepartum 09/19/2013 01/08/2014 DVT prophylaxis 12/25/2012 09/04/2013 Overview: IPCs DISPOSITION AND FOLLOW-UP 12/25/20122013 Overview: Full code Retinal detachment 10/26/2012 12/25/2012 documented as of this encounter (statuses as of 01/25/2023) [facility] of Past illness Narrative* Problem Noted Date Resolved Date Gastroparesis 11/23/2022 11/26/2022 01/28/2016 03/06/2017 Pre-existing type 1 diabetes mellitus in in first trimester 08/05/2015 10/03/2018 Fluid overload 12/10/2014 12/15/2014 Overview: Postoperative fluid overload A/P: Positive fluid balance. cont diuresis Tachycardia, unspecified 12/10/2014 015 Overview: Noted to have sinus tachycardia introap and post op A/P: HR improved with BB. Cont BB Anxiety 12/10/2014 12/13/2014 Overview: anxious at times, flat affect shaking legs post op A/p: improving, PRN xanax , resolved DVT prophylaxis 02/25/2014 04/16/2014 Overview: - IPCs care and examination 02/25/2014 04/16/2014 Overview: - Delivered by on 02/25/2014 morning - On fentanyl gtt per [employer] Plan: - [employer] team to round on patient and manage care Diabetes mellitus in 12/25/2013 0 04/16/2014 11/22/2013 04/16/2014 Overview: Recommended she consider inpatient management of her issues --- Reviewed importance of compliance. - Normal growth on ultrasound today. Biophysical profile score is reassuring. - VSD - appears smaller than on last scan - Discussed delivery at 37 weeks in the SDU - Possible risk for RDS in the but higher risks to her and the baby if is prolonged - Earlier delivery if any indications arise --- Follows with Dr. Garcia at [facility] Plan: - Continuous monitoring - F/u [employer] recs GBS (group B Streptococcus carrier), +RV culture @ 22 wks 11/11/2013 04/16/2014 Hypertension in , antepartum 09/19/2013 01/08/2014 DVT prophylaxis 12/25/2012 09/04/2013 Overview: IPCs DISPOSITION AND FOLLOW-UP 12/25/20122013 Overview: Full code Retinal detachment 10/26/2012 12/25/2012 documented as of this encounter (statuses as of 01/26/2023) [facility] Past illness Narrative* Problem Noted Date Resolved Date Gastroparesis 11/23/2022 11/26/2022 01/28/2016 03/06/2017 Pre-existing type 1 diabetes mellitus in in first trimester 08/05/2015 10/03/2018 Fluid overload 12/10/2014 12/15/2014 Overview: Postoperative fluid overload A/P: Positive fluid balance. cont diuresis Tachycardia, unspecified 12/10/2014 015 Overview: Noted to have sinus tachycardia introap and post op A/P: HR improved with BB. Cont BB Anxiety 12/10/2014 12/13/2014 Overview: anxious at times, flat affect shaking legs post op A/p: improving, PRN xanax , resolved DVT prophylaxis 02/25/2014 04/16/2014 Overview: - IPCs care and examination 02/25/2014 04/16/2014 Overview: - Delivered by on 02/25/2014 morning - On fentanyl gtt per [facility] Plan: - [facility] team to round on patient and manage care Diabetes mellitus in 12/25/2013 0 04/16/2014 11/22/2013 04/16/2014 Overview: Recommended she consider inpatient management of her issues --- Reviewed importance of compliance. - Normal growth on ultrasound today. Biophysical profile score is reassuring. - VSD - appears smaller than on last scan - Discussed delivery at 37 weeks in the SDU - Possible risk for RDS in the but higher risks to her and the baby if is prolonged - Earlier delivery if any indications arise --- Follows with Dr. Garcia at [facility] Plan: - Continuous monitoring - F/u [facility] recs GBS (group B Streptococcus carrier), +RV culture @ 22 wks 11/11/2013 04/16/2014 Hypertension in , antepartum 09/19/2013 01/08/2014 DVT prophylaxis 12/25/2012 09/04/2013 Overview: IPCs DISPOSITION AND FOLLOW-UP 12/25/20122013 Overview: Full code Retinal detachment 10/26/2012 12/25/2012 documented as of this encounter (statuses as of 01/26/2023) [facility] History of Past illness Narrative* Problem Noted Date Resolved Date Gastroparesis 11/23/2022 11/26/2022 01/28/2016 03/06/2017 Pre-existing type 1 diabetes mellitus in in first trimester 08/05/2015 10/03/2018 Fluid overload 12/10/2014 12/15/2014 Overview: Postoperative fluid overload A/P: Positive fluid balance. cont diuresis Tachycardia, unspecified 12/10/2014 015 Overview: Noted to have sinus tachycardia introap and post op A/P: HR improved with BB. Cont BB Anxiety 12/10/2014 12/13/2014 Overview: anxious at times, flat affect shaking legs post op A/p: improving, PRN xanax , resolved DVT prophylaxis 02/25/2014 04/16/2014 Overview: - IPCs care and examination 02/25/2014 04/16/2014 Overview: - Delivered by on 02/25/2014 morning - On fentanyl gtt per [facility] Plan: - [facility] team to round on patient and manage care Diabetes mellitus in 12/25/2013 0 04/16/2014 11/22/2013 04/16/2014 Overview: Recommended she consider inpatient management of her issues --- Reviewed importance of compliance. - Normal growth on ultrasound today. Biophysical profile score is reassuring. - VSD - appears smaller than on last scan - Discussed delivery at 37 weeks in the SDU - Possible risk for RDS in the but higher risks to her and the baby if is prolonged - Earlier delivery if any indications arise --- Follows with Dr. Garcia at [facility] Plan: - Continuous monitoring - F/u [facility] recs GBS (group B Streptococcus carrier), +RV culture @ 22 wks 11/11/2013 04/16/2014 Hypertension in , antepartum 09/19/2013 01/08/2014 DVT prophylaxis 12/25/2012 09/04/2013 Overview: IPCs DISPOSITION AND FOLLOW-UP 12/25/20122013 Overview: Full code Retinal detachment 10/26/2012 12/25/2012 documented as of this encounter (statuses as of 02/01/2023) [facility] History of Present illness Narrative* Abelardo La MD - 11/07/2022 2:41 PM EDT Kathleen Villa is a 27 year old female who presents with Swelling Around Left Eye (Pain,yesterday) 27-year-old female presented here complaining of left irritation following drainage. Denies any trauma or injuries. No other complaint. 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 Syncope Dyspnea Pre-Op Testing Atelectasis Post-Operative Pain Hereditary Disease in Family Possibly Affecting Fetus, Affecting Management of Mother, Antepartum Condition Or Complication Diabetes (Hcc) Abdominal Pain Complicating , Antepartum Type 1 Diabetes Mellitus With Stable Proliferative Retinopathy of Both Eyes (Hcc) Chronic Idiopathic Constipation Menstrual Irregularity Screening for Std (Sexually Transmitted Disease) Chronic Nausea Type 1 Diabetes Mellitus With Hyperglycemia, With Long-Term Current Use of Insulin (Hcc) Insulin Pump Status Current Outpatient Medications Medication Sig Dispense Refill insulin aspart U-100 (NOVOLOG U-100 INSULIN ASPART) 100 unit/mL Use in the Insulin pump for TDD of 100 units. 90 mL 1 Lancets (MICROLET LANCET) lancets Use as instructed to test blood sugar 4 times daily. E10.65 400 Each 3 blood sugar diagnostic (CONTOUR NEXT TEST STRIPS) test strip Use as instructed to check blood glucose 5 times daily. E10.65 500 Strip 3 glucagon (BAQSIMI) 3 mg/actuation nasal spray Use 1 [place] in the nose as needed for low blood sugar. May repeat after 15 minutes using a new device if there is no response. 2 Each 2 glucose 4 gram chewable tablet Take 4 tablets by mouth as needed. 100 tablet 11 insulin glargine (LANTUS SOLOSTAR, BASAGLAR KWIKPEN) 100 unit/mL (3 mL) Inject 43 Units subcutaneously as directed in the event of Insulin pump failure. 15 mL 1 linaCLOtide (LINZESS) 72 mcg capsule Take 1 capsule by mouth once daily. Administer on an empty stomach. Swallow whole; DO NOT crush or chew. 30 capsule 4 Acetone, Urine, Test (KETONE URINE TEST) Use as directed 100 Strip 5 promethazine (PHENERGAN) 50 mg tab(s) Take 1 tablet by mouth every 8 hours as needed. 30 tablet 2 SKYRIZI 150 mg/mL injection INJECT 150 MG UNDER THE SKIN EVERY 12 WEEKS hydrOXYzine HCl (ATARAX) 50 mg tablet Take 50 mg by mouth every 6 hours as needed. neomycin/polymyxin b/dexametha(MAXITROL 3.5 MG/ML-10,000 UNIT/ML-0.1% EYE DROPS,SUSPENSION) Use 1 Drop in the right eye four times daily for 7 days. 15 mL 0 No current facility-administered medications for this visit. Social History Tobacco Use Smoking status: Former Packs/day: 0.30 Years: 8.00 Pack years: 2.40 Types: Cigarettes Quit date: 06/2019 Years since quittin.3 Smokeless tobacco: Never Vaping Use Vaping Use: Never used Substance Use Topics Alcohol use: No Drug use: Yes Types: Marijuana Comment: medical card Alcohol Use: No Tobacco Use: 0.3 packs/day, for 8 years. Quit 06/28/2019. Types: Cigarettes FAMILY HISTORY Problem Relation Age of Onset Cancer Mother 18 cervical Thyroid Mother Thyroid Sister Diabetes Maternal Grandmother type 2 diabetes Cataract Other maternal great grandma Glaucoma Other maternal great grandma Review of Systems Eyes: Positive for discharge and redness. All other systems reviewed and are negative. BP 129/72 Pulse 94 Temp (Src) 97.3 (Temporal) Resp 16 Wt 200 lb (90.7kg) SpO2 95% LMP 10/13/2022 Physical Exam Vitals and nursing note reviewed. Constitutional: Appearance: Normal appearance. HENT: Nose: Nose normal. Mouth/Throat: Mouth: Mucous membranes are moist. Eyes: Extraocular Movements: Extraocular movements intact. Pupils: Pupils are equal, round, and reactive to light. Comments: Conjunctiva is red and injected there is purulent yellow drainage Cardiovascular: Rate and Rhythm: Normal rate and regular rhythm. Pulses: Normal pulses. Heart sounds: Normal heart sounds. Pulmonary: Effort: Pulmonary effort is normal. Breath sounds: Normal breath sounds. Neurological: Mental Status: She is alert. ASSESSMENT/PLAN: 1. Viral conjunctivitis - ICD9: 077.99, ICD10: B30.9 Maxitrol ophthalmic eyedrop 1 drop 4 times daily have patient follow-up as needed Abelardo La documented in this encounterGrant [facility]03-[facility]23 Miscellaneous Notes* Telephone Encounter - Florence Murillo RN - 11/03/2022 3:24 PM EST Situation handled in different encounter * Telephone Encounter - Jackeline Estrada [facility] - 11/02/2022 4:28 PM EST Patient has been identified by name and date of : Yes Type of form: Pump and CGM Physician's order/record request/demo sheet/insurance Form received via: Fax When form is completed, fax form to fax number provided. Form has been forwarded to: Provider's mailbox. Provider name: Dr Joshua Estrada Pss documented in this encounterGrant Hospital02-25-[facility]23 History of Present illness Narrative* Mary Cha LPN - 10/22/2022 4:34 PM EST Toradol 60 mg IM administered to the right buttock. Patient tolerated well. Mary Cha LPN * Abelardo La MD - 10/22/2022 4:25 PM EST Kathleen Villa is a 27 year old female who presents with Abdominal Pain ( Cramps Started yesterday morning /Bleeding and jimmy clots/Left side pain feels like something is stabbing & sharp pain ), Back Pain (Lower left back pain started yesterday morning 9am), and Head Pain Left-side 27-year-old female presented here complaint severe abdominal pain from cramping. Patient started her menstrual period yesterday since then the cramping started the pain has gotten worse. Patient states this is the worst cramps she ever had. 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 Syncope Dyspnea Pre-Op Testing Atelectasis Post-Operative Pain Hereditary Disease in Family Possibly Affecting Fetus, Affecting Management of Mother, Antepartum Condition Or Complication Diabetes (Hcc) Abdominal Pain Complicating , Antepartum Type 1 Diabetes Mellitus With Stable Proliferative Retinopathy of Both Eyes (Hcc) Chronic Idiopathic Constipation Menstrual Irregularity Screening for Std (Sexually Transmitted Disease) Chronic Nausea Type 1 Diabetes Mellitus With Hyperglycemia, With Long-Term Current Use of Insulin (Hcc) Insulin Pump Status Current Outpatient Medications Medication Sig Dispense Refill insulin aspart U-100 (NOVOLOG U-100 INSULIN ASPART) 100 unit/mL Use in the Insulin pump for TDD of 100 units. 90 mL 1 Lancets (MICROLET LANCET) lancets Use as instructed to test blood sugar 4 times daily. E10.65 400 Each 3 blood sugar diagnostic (CONTOUR NEXT TEST STRIPS) test strip Use as instructed to check blood glucose 5 times daily. E10.65 500 Strip 3 glucagon (BAQSIMI) 3 mg/actuation nasal spray Use 1 [place] in the nose as needed for low blood sugar. May repeat after 15 minutes using a new device if there is no response. 2 Each 2 glucose 4 gram chewable tablet Take 4 tablets by mouth as needed. 100 tablet 11 insulin glargine (LANTUS SOLOSTAR, BASAGLAR KWIKPEN) 100 unit/mL (3 mL) Inject 43 Units subcutaneously as directed in the event of Insulin pump failure. 15 mL 1 Acetone, Urine, Test (KETONE URINE TEST) Use as directed 100 Strip 5 promethazine (PHENERGAN) 50 mg tab(s) Take 1 tablet by mouth every 8 hours as needed. 30 tablet 2 SKYRIZI 150 mg/mL injection INJECT 150 MG UNDER THE SKIN EVERY 12 WEEKS linaCLOtide (LINZESS) 72 mcg capsule Take 1 capsule by mouth once daily. Administer on an empty stomach. Swallow whole; DO NOT crush or chew. 30 capsule 4 hydrOXYzine HCl (ATARAX) 50 mg tablet Take 50 mg by mouth every 6 hours as needed. (Patient not taking: Reported on 10/22/2022) Current Facility-Administered Medications Medication Dose Route Frequency Provider Last Rate Last Admin keTORolac 60 mg injection (TORADOL) 60 mg INTRAMUSCULAR ONCE Abelardo La MD Social History Tobacco Use Smoking status: Former Packs/day: 0.30 Years: 8.00 Pack years: 2.40 Types: Cigarettes Quit date: 06/2019 Years since quittin.3 Smokeless tobacco: Never Vaping Use Vaping Use: Never used Substance Use Topics Alcohol use: No Drug use: Yes Types: Marijuana Comment: medical card Alcohol Use: No Tobacco Use: 0.3 packs/day, for 8 years. Quit 06/28/2019. Types: Cigarettes FAMILY HISTORY Problem Relation Age of Onset Cancer Mother 18 cervical Thyroid Mother Thyroid Sister Diabetes Maternal Grandmother type 2 diabetes Cataract Other maternal great grandma Glaucoma Other maternal great grandma Review of Systems Gastrointestinal: Positive for abdominal pain. All other systems reviewed and are negative. BP 150/96 Pulse 143 Temp 99.5 Resp 20 Wt 190 lb (86.2kg) SpO2 94% LMP 10/13/2022 Physical Exam Vitals and nursing note reviewed. Constitutional: Appearance: Normal appearance. Cardiovascular: Rate and Rhythm: Normal rate and regular rhythm. Pulses: Normal pulses. Heart sounds: Normal heart sounds. Pulmonary: Effort: Pulmonary effort is normal. Breath sounds: Normal breath sounds. Abdominal: Comments: Severe tenderness in all 4 quadrant no rebound tenderness Neurological: Mental Status: She is alert. ASSESSMENT/PLAN: 1. Lower abdominal pain - ICD9: 789.09, ICD10: R10.30 Patient was sent to the ER for further evaluation. A shot of Toradol 60 mg IM was given here - KETOROLAC 60 MG/2 ML INTRAMUSCULAR SOLUTION Abelardo La documented in this encounterGrant Hospital02-07-2023 History of Present illness Narrative* Leesa Huddleston PA-C - 10/04/2022 2:00 PM EST DATE OF SERVICE: 10/04/2022 PATIENT NAME: Kathleen Villa : 1995 AGE: 27 y.o. CLINIC NUMBER: [id number] Visit type: Established patient Chief Complaint Patient presents with Psoriasis LV 02/07/22 Subjective HISTORY OF PRESENT ILLNESS: This is a 27 y.o. female who presents for evaluation of psoriasis vulgaris; last seen 02/07/22. F/u psoriasis. Improved since last visit. Currently treating with Sonam seo. Patient self administers injections at home without complications. Last injection 08/2022. Denies flares. Denies redness, flaking, scaling. Denies itching, burning, pain. Admits joint pain/ joint stiffness to the bilateral knees, hips, and elbows. Patient stated she is not sure if her joint pain is from Marfan's syndrome. Denies nail ridges, pitting, thickening, discoloration. C/o-skin lesion located on the right upper lip x 3 years. Patient states the lesion is tender. Denies itching, bleeding, pain. Admits changes in size. Denies previous treatment. Are you or ? No History of pacemaker/ defibrillator? No History of HIV/ Hep C? No Allergies to Lidocaine, Epinephrine, Latex or Adhesive? Yes-adhesives. Review of Systems Orders Placed This Encounter Medications clindamycin (Cleocin-T) 1 % lotion Sig: Apply thin layer to affected areas of bilateral legs every day. Dispense: 60 mL Refill: 3 There were no vitals filed for this visit. PHYSICAL EXAM GENERAL APPEARANCE:?Alert & oriented x3, pleasant. Well developed, well nourished. PSYCH: appropriate mood and affect DERMATOLOGY: (all measurements are in cm, unless otherwise noted) 1. Psoriasis vulgaris Clear on exam today [x]Chronic []Acute [x]Stable []Flaring/Exacerbation Educated and reassured. Treatment options, risks, benefits, and expectations reviewed. Continue: - Skyrizi injection Patient advised psoriasis is a chronic, multisystem inflammatory disease which most commonly affects the skin. Psoriasis can also affect the nails, joints and skin folds. Depending on the severity and location of the psoriasis, treatment includes topical steroids, topical vitamin D analogs, UV treatment, topical retinoids and systemic treatment. Systemic medications called biologics are injectionmedications that can be used to treat psoriasis. Biologics are selected on an individual basis withconsideration of the patient's medical history and family history. Related Procedures CBC auto differential Comprehensive metabolic panel Hepatitis A antibody, IgM Hepatitis B core antibody, IgM Hepatitis B surface antibody Hepatitis B surface antigen Hepatitis C antibody HIV-1 and HIV-2 Antigen-Antibody Screen QUANTIFERON TB GOLD 2. Folliculitis Left Lower Leg - Posterior, Right Lower Leg - Posterior Scattered pink perifollicular papule(s) and few pustule(s) []Chronic [x]Acute []Stable [x]Flaring/Exacerbation Educated and reassured. Treatment options, risks, benefits, and expectations reviewed. Start: - clindamycin lotion:Apply thin layer to affected areas of bilateral legs every day. Related Medications clindamycin (Cleocin-T) 1 % lotion Apply thin layer to affected areas of bilateral legs every day. 3. Encounter for long-term current use of high risk medication Related Procedures CBC auto differential Comprehensive metabolic panel Hepatitis A antibody, IgM Hepatitis B core antibody, IgM Hepatitis B surface antibody Hepatitis B surface antigen Hepatitis C antibody HIV-1 and HIV-2 Antigen-Antibody Screen QUANTIFERON TB GOLD Related Medications clindamycin (Cleocin-T) 1 % lotion Apply thin layer to affected areas of bilateral legs every day. 4. Screening for viral disease Related Procedures Hepatitis A antibody, IgM Hepatitis B core antibody, IgM Hepatitis B surface antibody Hepatitis B surface antigen Hepatitis C antibody HIV-1 and HIV-2 Antigen-Antibody Screen Follow up in about 1 year (around 10/04/2023) for Psoriasis f/u, FSE. Leesa Huddleston PA-C 10/04/22 2:01 PM REFERRING MD: documented in this [facility]01-11-2023 Miscellaneous Notes* Telephone Encounter - David De Jesus RN - 09/07/2022 4:16 PM EST Completed PA via [employer]. CaseId:[id number]; Status:Approved; Valid08/08/2022 - 09/07/2023; Patient notified. * Telephone Encounter - Ira Maria - 09/06/2022 3:12 PM EST Pt's insurance will no longer cover any contour products. She needs scripts for new meter, test strips and lancets sent to [facility] on file. States her insurance will cover just about anything other than contour products. She requests a brand that is compatible with her medtronic pump, if possible. documented in this encounterGrant Hospital12-22-2022 Miscellaneous Notes* Telephone Encounter - Lisa Aguilar LPN - 08/18/2022 3:37 PM EST Faxed completed form, last 2 Visit Progress Notes and pump upload to [facility] medical. Lisa Aguilar LPN * Telephone Encounter - Autumn Valadez APRN.CNP - 08/18/2022 3:28 PM EST Formsigned Autumn Valadez APRN.TECHNICAL PROGRAMS MANAGER * Telephone Encounter - Lisa Aguilar LPN - 08/18/2022 2:48 PM EST JOSE: 08/16/2022 Additional visit notes required for [facility] supplies. Forms completed and placed on Provider's desk. Please review and advise. Thank You, Lisa Aguilar LPN * Telephone Encounter - Re Gonzalez - 07/19/2022 9:53 AM EST Forms to be sent over after next visit on 08/16/22. In file folder * Telephone Encounter - Lorie Mccann Pss - 07/14/2022 4:09 PM EST Spoke w Pt and informed of below w good understanding. Follow up appt mercy Leyva has been scheduled aswell. Pt will call back if needed. * Telephone Encounter - Lisa Aguilar LPN - 07/14/2022 2:49 PM EST Forms received via fax from [facility] for CGM and pump supplies. [facility] is requiring Last 2 office visit notes and Medtronic pump download. Called patient to verify needs. Patient needs replacement for 630 Medtronic pump and [place] sensors. Patient initial visit, Virtual Visit with Dr. Lewis on 07/11/2022. Next visit to be scheduled with Autumn Valadez CNP in person 1-3 months. Patient aware [facility] requires pump download, will download at next visit. Please call patient and schedule appointment with Autumn Valadez CNP Thank you, Lisa Aguilar LPN documented in this encounterGrant Hospital12-20-2022 History of Present illness Narrative* Autumn Valadez APRN.FRIEDA - 08/16/2022 2:45 PM EST Images from the original note were not included. [facility] DIABETES VISIT ALLERGIES Allergen Reactions Percocet [Oxycodone* Rash, Intolerance, Itching Adhesive Tape (Lidia* Rash Keflex [Cephalexin] Other: See Comments Makes infection worse- patient denies this on 02/25/2014 Morphine Rash, Itching Zofran [Ondansetron* Other: See Comments syncope Current Outpatient Medications Medication Sig linaCLOtide (LINZESS) 72 mcg capsule Take 1 capsule by mouth once daily. Administer on an empty stomach. Swallow whole; DO NOT crush or chew. Acetone, Urine, Test (KETONE URINE TEST) Use as directed promethazine (PHENERGAN) 50 mg tab(s) Take 1 tablet by mouth every 8 hours as needed. SKYRIZI 150 mg/mL injection INJECT 150 MG UNDER THE SKIN EVERY 12 WEEKS hydrOXYzine HCl (ATARAX) 50 mg tablet Take 50 mg by mouth every 6 hours as needed. insulin aspart U-100 (NOVOLOG U-100 INSULIN ASPART) 100 unit/mL Use in the Insulin pump for TDD of 100 units. Lancets (MICROLET LANCET) lancets Use as instructed to test blood sugar 4 times daily. E10.65 blood sugar diagnostic (CONTOUR NEXT TEST STRIPS) test strip Use as instructed to check blood glucose 5 times daily. E10.65 glucagon (BAQSIMI) 3 mg/actuation nasal spray Use 1 [place] in the nose as needed for low blood sugar. May repeat after 15 minutes using a new device if there is no response. glucose 4 gram chewable tablet Take 4 tablets by mouth as needed. insulin glargine (LANTUS SOLOSTAR, BASAGLAR KWIKPEN) 100 unit/mL (3 mL) Inject 43 Units subcutaneously as directed in the event of Insulin pump failure. No current facility-administered medications for this visit. 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 VAMSI 11/2014 SECTION HX 02/25/2014 amairani 37 weeks PAST SURGICAL HISTORY OF Right 01/08/2020 REMOVE IMPLANTED MATERIAL POSTERIOR SEGMENT OF EYE, EXTRAOCULAR PICC LINE INSERT/CONSULT 01/09/2014 PORT Left VITRECTOMY MECHANICAL PARS PLANA 10/29/2012 PPV ([place]ana Vitrectomy) OD VITRECTOMY MECHANICAL PARS PLANA 05/14/2014 PPV ([place] Vitrectomy)/PCIOL OS XTRNL PT ACTIV ECG TRANSMIS W/R&I </30 DAYS 09/05/2014 left chest wall FAMILY HISTORY Problem Relation Age of Onset Cancer Mother 18 cervical Thyroid Mother Thyroid Sister Diabetes Maternal Grandmother type 2 diabetes Cataract Other maternal great grandma Glaucoma Other maternal great grandma I reviewed the Metallurgical Technician's notes with this visit for vital signs, current allergies, medications, electronic medical record, lab(s), outside lab(s), and or back office lab(s) results, historyof vaccinations, and chief complaints. I edited the information obtained, as required. HISTORY OF PRESENT ILLNESS Last endo office visit: 07/11/[address] Joshua Benavides patient to me Kathleen Villa is a 27 year old female who comes for 1 month follow-up of Type 1 DM. Patient has had diabetes since age 14 YO. Also known history of gastroparesis, retinopathy, HTN, Marfan's syndrome with dilated aortic root, anxiety/depression Family history of DM: yes, maternal grandmother DM2 She is due for Insulin pump/ CGM upgrade. She notes she has always had difficulty managing her blood sugars. Reports large variations in the readings. She is entering in carbs even when not eating to try and improve the hyperglycemia. I take 3 extra units on top of the amount I'm supposed to for blood sugar above 200 mg/dL. Patient's last HgA1C was Hemoglobin A1C (%) Date Value 12/30/2021 6.2 Hemoglobin A1C (POCT) (%) Date Value 08/16/2022 7.0 Diet: Carb counts Tries to avoid high carbs Doesn't eat until later in the day a lot of nausea d/t gastroparesis Salad, milk, apple sauce Current Medications to manage DM: The patient is currently taking Novolog insulin via Medtronic 630G insulin pump in manual mode at the following settings to manage their diabetes: Basal rate: 00:00= 1.8 units/hr 43.2= units per 24 h basal rate Bolus: Insulin:carb ratio 00:00= 10 g/ unit Sensitivity 00:00= 30 mg/dL Blood glucose target 00:00= 110-120 mg/dL Insulin duration= 3 hrs MONITORING: Insulin pump download reveals the following over the last 14 days: 1. Patient tests an average of 4.1 times per day 2. Patient boluses an average of 6.1 times per day 3. Average total daily dose is 97.4 units 4. Average % basal: bolus Ratio is 44:56 5. Average fingerstick blood glucose is 169 + 102 mg/dl 6. Average sensor blood glucose is N/A 7. Average daily carbs entered is 460 + 168 g 8. Patient changes pump site every 2.6 days. Download of insulin of past 14 days: Hypoglycemia awareness: yes OTHER ISSUES: Ophthalmology 2019 Retinopathy: yes Podiatry: none Neuropathy: none Exercise: yes, walking LABS TSH (UIU/ML) Date Value 06/03/2021 6.118 02/04/2021 3.712 08/14/2019 4.480 ALT (U/L) Date Value 04/22/2022 14 01/29/2022 28 12/27/2021 13 12/25/2021 13 Potassium Date Value 04/22/2022 3.4 mmol/L 02/01/2022 3.7 MMOL/L 01/31/2022 3.7 MMOL/L Creatinine Date Value 04/22/2022 0.72 mg/dL 02/01/2022 0.64 MG/DL 01/31/2022 0.61 MG/DL 01/30/2022 0.68 MG/DL Hemoglobin A1C (%) Date Value 12/30/2021 6.2 02/04/2021 6.1 10/06/2020 6.7 Hemoglobin A1C (POCT) (%) Date Value 11/25/2020 6.3 Albumin, Urine Random (mg/L) Date Value 03/21/2017 25.6 Microalbumin, Urine Random (UG/ML) Date Value 05/06/2019 LESS THAN 5.0 Creatinine, Ur Random (UCRR) (mg/dL) Date Value 03/21/2017 90.3 Albumin/Creat Ratio (mg/g) Date Value 03/21/2017 28 Glucose Date Value 04/22/2022 140 mg/dL 02/01/2022 104 MG/DL 01/31/2022 167 MG/DL 01/30/2022 87 MG/DL 08/31/2015 287 mg/dL Calcium (MG/DL) Date Value 02/01/2022 8.4 01/31/2022 9.1 Calcium, Total (mg/dL) Date Value 04/22/2022 9.8 Vitamin D 25 Hydroxy (NG/ML) Date Value 02/04/2021 25.6 04/30/2019 15.8 Lipids: Cholesterol, Total Date Value 02/04/2021 161 MG/dL 08/14/2019 228 MG/DL 04/30/2019 206 MG/DL HDL Cholesterol (MG/DL) Date Value 02/04/2021 36 08/14/2019 38 04/30/2019 47 LDL Cholesterol (MG/DL) Date Value 02/04/2021 108 08/14/2019 149 04/30/2019 137 Triglyceride (MG/DL) Date Value 02/04/2021 84 08/14/2019 206 04/30/2019 110 REVIEW OF SYSTEMS General: no fever, chills Eyes: no blurred or double vision Cardiac: denies chest pain Pulmonary: denies shortness of breath GI: + diarrhea/constipation, + nausea : denies dysuria or frequency Neuro: no neuropathy Musc: denies weakness PHYSICAL EXAMINATION: BP 113/58 Pulse 68 Wt 192 lb (87.1kg) SpO2 95% LMP 08/08/2022 General: Well appearing, alert, in no acute distress, well nourished. Heart: no murmur Lung: Lungs clear to auscultation. No wheezing, rhonchi, rales. Abdomen: soft, non-tender Extremities: no edema Feet: Shoes and socks removed, No deformities, ulcers, calluses, normal distal pulses, and sensitive to 10 gm monofilament Neurological: alert and oriented x 3 IMPRESSION/PLAN Ms. Villa is a 27 year old female who returns to the Department of Endocrinology for diabetes management. (E10.65) Type 1 diabetes mellitus with hyperglycemia, with long-term current use of insulin ([facility]) (primary encounter diagnosis) (Z96.41) Insulin pump status Comment: HgbA1C 7.0 % Labs: 2021 Cr 0.72 GFR 118 Plan: 1) Keep glucose tablets or hard candy with you at all times in case of a low blood sugar 2) Please bring meter and/or log book with you to your appointments 3) She does not want any Insulin pump changes made today. We discussed options for changes at length today but she still declines. 4) She is due for Insulin pump upgrade 5) RX sent for basal Insulin in event of Insulin pump failure and Baqsimi -Hypoglycemia guidelines reviewed -Recommended diet: Low carbohydrate, Low Added Fat, and No Added Salt -Recommended exercise: 150 minutes of exercise per week as goal -Monitor blood glucose 4 times per day. The patient was advised to contact the office if the blood sugar readings are consistently high or if having frequent hypoglycemia. -Driving and Diabetes has been reviewed with the patient BP 113/58 in office Goal BP <130/80 Patient to continue to follow up with her Primary Care Provider and with other consultants regarding her other medical problems. Next visit scheduled in November with Dr. Lewis 6 mo with ak Autumn Valadez APRN.FRIEDA Endocrinology & Metabolism [place] documented in this encounter[facility]-14-[facility] History of Present illness Narrative* Kvng Lewis MD - 07/11/2022 11:00 AM EST VIRTUAL VISIT DIABETES NOTE Reason for Consultation: DM Type 1 HISTORY OF PRESENT ILLNESS: Ms. Villa is a 26 year old female presenting here today for a follow up of DM Type 1. She would like to transfer to care Dr. Khoury Lives in [place] Type 1 dx age 14 ( 12 years) Known complications include: gastroparesis and stable retinopathy ( noted by Dr. Khoury in prior visits Exacerbating factors include: HTN, Marfans , Anxiety / depression Current diabetes regimen is as follows: insulin pump - supposed to be upgrading insulin pump Medtronic 630 She is in process of upgrading on both CGM and insulin pump she is checking her blood glucose Ms. Villa is a 26 year old female presenting here today for a follow up regarding uncontrolled type1 diabetes mellitus. she is former Dr. khoury patient and is interested in transfering care due to convenient location She lives in [place]. Dr. Khoury was managing patient during her she delivered a 7lbs 2oz baby girl by 01/2016. Unfortunately her daughter in May 2017 unexpectedly. She has hx of Marfan's syndrome with dilated aortic root. She was diagnosed with type 1 diabetes atage 14. Historically she has had very difficult to manage diabetes, very labile BG (even while inpatient) according to Dr. Khoury . Having continued issues with nausea, gastroparesis which further complicates her glycemic control. POC HbA1c at previous visit was 6.3%. BASAL ( confimed with patient over the visit) MIDNIGHT 1.8 7AM 1.8 IC RATIO Midnight 10 ISF 30 Target 110 - 120 mg/dL Active insulin 3 hours 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 VAMSI 11/2014 SECTION HX 02/25/2014 amairani 37 weeks PAST SURGICAL HISTORY OF Right 01/08/2020 REMOVE IMPLANTED MATERIAL POSTERIOR SEGMENT OF EYE, EXTRAOCULAR PICC LINE INSERT/CONSULT 01/09/2014 PORT Left VITRECTOMY MECHANICAL PARS PLANA 10/29/2012 PPV (Pars Plana Vitrectomy) OD VITRECTOMY MECHANICAL PARS PLANA 05/14/2014 PPV (Pars Plana Vitrectomy)/PCIOL OS XTRNL PT ACTIV ECG TRANSMIS W/R&I </30 DAYS 09/05/2014 left chest wall FAMILY HISTORY Problem Relation Age of Onset Cancer Mother 18 cervical Thyroid Mother Thyroid Sister Diabetes Maternal Grandmother type 2 diabetes Cataract Other maternal great grandma Glaucoma Other maternal great grandma Social History Tobacco Use Smoking status: Former Packs/day: 0.30 Years: 8.00 Pack years: 2.40 Types: Cigarettes Quit date: 06/2019 Years since quittin.0 Smokeless tobacco: Never Vaping Use Vaping Use: Never used Substance Use Topics Alcohol use: No Drug use: Yes Types: Marijuana Allergies As of Date: 07/11/2022 Allergen Noted Reaction PERCOCET [OXYCODONE-ACETAMINOPHEN]01/10/2014 Rash, Intolerance, and Itching ADHESIVE TAPE (ROSINS) 09/04/2013 Rash MORPHINE 08/30/2013 Rash and Itching ZOFRAN [ONDANSETRON HCL (PF)] 01/14/2015 Other: See Comments Fully Assessed 06/07/2022 Current Outpatient Medications Medication Sig Dispense Refill insulin aspart U-100 (NOVOLOG U-100 INSULIN ASPART) 100 unit/mL Use with insulin pump upto 100 units/day 90 mL 1 linaCLOtide (LINZESS) 72 mcg capsule Take 1 capsule by mouth once daily. Administer on an empty stomach. Swallow whole; DO NOT crush or chew. 30 capsule 4 blood sugar diagnostic (CONTOUR NEXT TEST STRIPS) test strip Use as instructed to check blood glucose 7 times daily. 250 Strip 11 Acetone, Urine, Test (KETONE URINE TEST) Use as directed 100 Strip 5 promethazine (PHENERGAN) 50 mg tab(s) Take 1 tablet by mouth every 8 hours as needed. 30 tablet 2 SKYRIZI 150 mg/mL injection INJECT 150 MG UNDER THE SKIN EVERY 12 WEEKS hydrOXYzine HCl (ATARAX) 50 mg tablet Take 50 mg by mouth every 6 hours as needed. lancets (GameWith LANCETS) 30 gauge 10 x daily DX Code: O24.011 on insulin RUFINA voucher has been faxed 300 Each 11 glucose 4 gram chewable tablet Take 4 tablets by mouth as needed. 100 tablet 11 glucagon, human recombinant, (GLUCAGON EMERGENCY KIT, HUMAN,) 1 mg injection Inject (1)one mg intramuscularly or subcutaneously for insulin shock. 250.03 1 Each 3 No current facility-administered medications for this visit. REVIEW OF SYSTEMS: Constitutional: + nausea General: no fever, chills or acute changes in weight in the last 6 months Appetite: Intact GI: + nausea PHYSICAL EXAMINATION: General Appearance: Well appearing, alert, in no acute distress, well-hydrated, well nourished. DATA: Hemoglobin A1C (%) Date Value 12/30/2021 6.2 ) Glucose Date Value 04/22/2022 140 mg/dL 02/01/2022 104 MG/DL 08/31/2015 287 mg/dL Potassium Date Value 04/22/2022 3.4 mmol/L 02/01/2022 3.7 MMOL/L Sodium Date Value 04/22/2022 140 mmol/L 02/01/2022 143 MMOL/L Chloride Date Value 04/22/2022 104 mmol/L 02/01/2022 112 MMOL/L CO2 Date Value 04/22/2022 20 mmol/L 02/01/2022 24.0 MMOL/L Creatinine Date Value 04/22/2022 0.72 mg/dL 02/01/2022 0.64 MG/DL BUN Date Value 04/22/2022 14 mg/dL 02/01/2022 LESS THAN 5 MG/DL Anion Gap Date Value 04/22/2022 16 mmol/L 02/01/2022 7 MMOL/L Calcium (MG/DL) Date Value 02/01/2022 8.4 Calcium, Total (mg/dL) Date Value 04/22/2022 9.8 Hemoglobin A1C (%) Date Value 12/30/2021 6.2 02/04/2021 6.1 10/06/2020 6.7 02/02/2020 8.7 08/14/2019 10.5 Hemoglobin A1C (POCT) (%) Date Value 11/25/2020 6.3 05/18/2020 6.5 02/05/2020 8.6 10/16/2019 9.5 IMPRESSION: Ms. Villa is a 26 year old female is being evaluated via [facility] for DM1 Complicated patient with complex PMH - anxiety/ depression h/o eating disorder, Marfans syndrome DM dx age 14 ( 13 years ago ) complications gastroparesis and retinopathy Comorbidities Marfans Insulin pump Medtronic 630 with CGM She is in the process of pump upgrade andrea Khoury patient Has insulin from 04/2022 with 1 RF RECOMMENDATIONS: Difficult appointment to be completed virtually I discussed this with patient Unable to review her data and she was unable to download ahead this appointment was made to est with new provider I discussed with patient that I prefer to see pump patients in person for the first visit - she verbalized understanding. I offered to refill medication until she is able to be seen and she told me she did not need any refills at this time Dr. Khoury has provided refill for Novolog in Apr with 1 refill I encourage patient to schedule appt with our PLANNING ASSOCIATE Autumn Valadez in the next 1-3 mos in person See me after 3 mos after h/o abnormal TSH I have place another order for TSH/ Free T4 and TPO AB Will also place another order for HGa1c as it is has been over 6mos Kvng Lewis MD I spent a total of 40 minutes on the date of the service which included [id number] patient care, completing clinical documentation, performing a medically appropriate examination, ordering medications, tests, or procedures, and care coordination (not separately reported). Answers submitted by the patient for this visit: Endocrine Review of Systems (Submitted on 07/11/2022) Fatigue: Yes Night Sweats: No Recent Unintentional Weight Change: No Skin Color Changes: No Post-Nasal Drip: No Thyroid Pain (lower neck): No Trouble Swallowing: No Vision Disturbance: No Chest Pain: Yes Leg Swelling: No Blood Clots?: No Leg Pain while walking?: No Difficulty Breathing?: No Heartburn: No Nausea: Yes Vomiting?: Yes Diarrhea: Yes Constipation: Yes Abdominal Pain: Yes Bone Pain?: Yes Muscle Aches: Yes Muscle Weakness: Yes Joint Pain or Stiffness: Yes Headaches: No Dizziness: No Numbness?: No Urgency to Urinate?: No Increased Urination?: Yes Slow or Small Urine Stream?: No Are your menstrual cycles regular?: No Are your menstrual cycles irregular?: Yes Have your menstrual cycles stopped?: No Flushing?: No Hot Flashes?: No Increased Thirst: Yes Change in Body Hair?: Yes Cold Intolerance: Yes Heat Intolerance?: Yes documented in this [facility]11-09-2022 Miscellaneous Notes* Telephone Encounter - Lisa Aguilar LPN - 07/06/2022 12:21 PM EST Called patient, left message to call office. Also, sent detailed KOWNt message re: upcoming Virtual appointment. Lisa Aguilar LPN * Telephone Encounter - Ira Maria - 07/06/2022 12:15 PM EST Pt calling, says she is returning call from nurse, does not remember the name of the nurse. She can be reached at [phone] documented in this [facility]10-20-2022 Miscellaneous Notes* Telephone Encounter - Anahi Benito MA - 06/16/2022 9:29 AM EDT Received [employer] form and placed on physicians desk for review. Form faxed with confirmation. documented in this [facility]10-12-2022 Miscellaneous Notes* Telephone Encounter - David De Jesus RN - 06/08/2022 3:08 PM EDT Patient has not been seen by Dr. Stanford. * Telephone Encounter - Lorie Mccann Pss - 06/07/2022 3:10 PM EDT Patient has been identified by name and date of : Yes Type of form: [employer] CGM Referral w Physician's Order Form received via: Fax When form is completed, fax form to fax number provided # [phone] Form has been forwarded to: SILVINO/nidia documented in this [facility]10-11-2022 History of Present illness Narrative* Phoebe Mckeon APRN.TECHNICAL PROGRAMS MANAGER - 06/07/2022 2:25 PM EDT Kathleen Villa is a 26 year old who presents today for STD follow-up. After + GC dx on 05/10/22. Pt states that partner was treated. They had previously been swingers and they notified all previous partners, all were negative so far. Pt and her partner have abstained SUBJECTIVE Symptoms: resolved Partners at risk notified: yes Partners treated: yes Sexual contact since last visit: Yes Number of partners: 4 Condom used: No EVALUATION OF TREATMENT PLAN Cultures previously done: GC Positive , Chlamydia Negative , RPR Negative , HIV Negative , HPV Negative Antibiotics used: yes - COMPLETED OBJECTIVE Abdomen: soft, non-tender, no masses, no hepatosplenomegaly, and no lymphadenopathy Pelvic examination: Deferred GC/CT cx done, advised condom use at all times. Pt says they are done swinging. RTC- 1 yr/prn Phoebe Mckeon APRN.TECHNICAL PROGRAMS MANAGER documented in this [facility]10-11-20[facility] Nurse Note* Alysha Petersen MA - 06/07/2022 2:11 PM EDT Pt is here today for JASON. Pt has no concerns at this time. documented in this [facility]09-16-2022 Miscellaneous Notes* Telephone Encounter - Anahi Benito MA - 05/13/2022 12:23 PM EDT Received [employer] and [employer] forms for pump/cgm supplies. Patient next visit is in June and has not been seen since 08/24/2021. RightSignature message sent to patient requesting pump upload. documented in this [facility]09-15-20[facility] Nurse Note* Zohreh Rodarte LPN - 05/12/2022 10:15 AM EDT Pt given 2 doses of Rocephin 250 mg, total 500 mg in the left buttock. Pt tolerated injection well.BP 110/70. documented in this [facility]09-15-2022 History of Present illness Narrative* Phoebe Mckeon APRN.CNP - 05/12/2022 9:34 AM EDT . documented in this [facility]09-13-2022 Miscellaneous Notes* Telephone Encounter - Dori Chapman RN - 05/10/2022 1:38 PM EDT PT coming for injection on 05/12/22 at 9:30a advised to bring medication with her to appt. Pt voiced understanding. 4 week JASON scheduled * Telephone Encounter - Phoebe Mckeon APRN.CNP - 05/10/2022 11:34 AM EDT Please notify pt that she is + for Gonorrhea. She will renny to come in for an injection. I have alsosent a Rx that she will need to bring with her to that visit. She will need to take that medicationat the time of the injection. This is an STD and her partner(s) will also need treated. Advise NO intercourse for 2 weeks AFTER her partner(s) have been treated. She will need to return in 4 wks for a JASON Thanks Phoebe Mckeon APRN.TECHNICAL PROGRAMS MANAGER documented in this [facility]09-07-2022 Miscellaneous Notes* Telephone Encounter - Sol Choe LPN - 05/04/2022 10:19 AM EDT Requester: Patient Patients last Endocrinology visit occurred 08/24/21. Follow-up evaluation has been established 07/05/22. Requested Prescriptions Pending Prescriptions Disp Refills insulin aspart U-100 (NOVOLOG U-100 INSULIN ASPART) 100 unit/mL Sig: Use with insulin pump upto 100 units/day If patient is due for an appointment please route to provider for refill consideration and also to the endo scheduling pool. PSS NOTE: Patient needs scheduled appointment No * Telephone Encounter - Shahana Fink RN - 05/03/2022 2:09 PM EDT Patient calling back to update pharmacy for this refill. Updated to [facility] for insulin aspart U-100 documented in this [facility]09-06-2022 Miscellaneous Notes* Telephone Encounter - Darnell Vera RN - 05/03/2022 11:49 AM EDT Pended - please file if appropriate. documented in this [facility]09-06-2022 Miscellaneous Notes* Telephone Encounter - Clemencia Ma - 05/03/2022 9:31 AM EDT LVM for patient informing them to schedule follow up visit(s) in regards to the prescription refillrequests received from pharmacy. * Telephone Encounter - Anahi Benito MA - 05/03/2022 9:18 AM EDT Requester: Pharmacy Patients last Endocrinology visit occurred 08/24/2021. Follow-up evaluation has been established none. Requested Prescriptions Pending Prescriptions Disp Refills blood sugar diagnostic (CONTOUR NEXT TEST STRIPS) test strip 250 Strip 11 Sig: Use as instructed to check blood glucose 7 times daily. Acetone, Urine, Test (KETONE URINE TEST) 100 Strip 5 Sig: Use as directed If patient is due for an appointment please route to provider for refill consideration and also to the endo scheduling pool. PSS NOTE: Patient needs scheduled appointment Yes documented in this [facility]08-22-2022 Instructions* Patient Instructions* Dashawn Cain APRN.CNP - 04/18/2022 8:39 AM EDT Labs ordered- urine tests. Have done at Urgent care or [facility]. We will call with results. Referral placed to BRAZING MACHINE SETTER clinic at [facility]. This should get in contact with you within the next couple weeks if not you may call central scheduling at [phone] to inquire about your appointment. documented in this [facility]08-22-2022 History of Present illness Narrative* Dashawn Cain APRN.CNP - 04/18/2022 8:22 AM EDT This note was created using [email or web address]. Subjective Kathleen Villa is a 26 year old female. Kathleen is here today with some complaints about her menstrual cycles. She reports that her last period lasted 63 days. She also reports that she would like to be tested for STDs. Reports she has been bumps on her cervix and she was told it was blocked pores apparently. She does not have a current HEAD OF MARKETING ANALYTICS. Her previous BRAZING MACHINE SETTER is Dr. Kristin Garcia at [facility]. She had noticed some mild discharge. She had a PAP smear done on March 04 and was given some medication for a yeast infection, now no longer having discharge. Review of Systems Gastrointestinal: Positive for nausea. Genitourinary: Positive for menstrual problem and vaginal discharge. All other systems reviewed and are negative. Objective BP 120/72 (BP Site: Left Arm, BP Position: Sitting, BP Cuff Size: Regular Adult) Pulse 78 Temp (!) 35.5 C (95.9 F) (Temporal) Ht 175.3 cm (5' 9) Wt 81.6 kg (180 lb) LMP 01/20/2020 SpO2 97% BMI 26.58 kg/m Physical Exam Vitals and nursing note reviewed. Constitutional: Appearance: Normal appearance. HENT: Head: Normocephalic and atraumatic. Eyes: Extraocular Movements: Extraocular movements intact. Conjunctiva/sclera: Conjunctivae normal. Pupils: Pupils are equal, round, and reactive to light. Cardiovascular: Rate and Rhythm: Normal rate and regular rhythm. Pulses: Normal pulses. Heart sounds: Normal heart sounds. Abdominal: Palpations: Abdomen is soft. Musculoskeletal: General: Normal range of motion. Neurological: General: No focal deficit present. Mental Status: She is alert. Psychiatric: Mood and Affect: Mood normal. Behavior: Behavior normal. Thought Content: Thought content normal. ASSESSMENT/PLAN: 1. Menstrual irregularity - ICD9: 626.4, ICD10: N92.6 (primary diagnosis) - CONSULT TO GYNECOLOGY - GC/CHLAMYDIA AMPLIF, URINE - HCG QUAL UR 2. Screening for STD (sexually transmitted disease) - ICD9: V74.5, ICD10: Z11.3 - GC/CHLAMYDIA AMPLIF, URINE - T VAGINALIS AMPLIFICATION 3. Chronic nausea - ICD9: 787.02, ICD10: R11.0 - PROMETHAZINE 50 MG TABLET This note was partially generated using Algorithmia voice recognition system. Dashawn Cain APRN.TECHNICAL PROGRAMS MANAGER documented in this [facility]07-[facility] History of Present illness Narrative* Teressa Mckoy RN - 03/11/2022 1:10 PM EDT 2mg/2ml Activase instilled in port at 1207. Blood return obtained at 1255. 10ml withdrawn and discarded. Port flushed with saline and heparin per protocol. documented in this [facility]07-11-2022 History of Present illness Narrative* Teressa Mckoy RN - 03/07/2022 4:38 PM EDT Unable to obtain blood return. Will notify ordering practitioner for Activase order. Patient reports unable to stay today. Will return Monday03/11/22. documented in this [facility]06-07-2022 [facility]05-06-2022 Miscellaneous Notes* Telephone Encounter - Anahi Haywood MA - 12/31/2021 11:44 AM EDT Received [facility] Medical request for most recent office notes and CGM data. Office notes printed for physicians signature. Called patient on mobile number and advised if she can upload her pump. Patient stated she is not at home and will upload as soon as she can. Advised patient no problem and she cansend Normal message once upload is completed. Patient voiced understanding. documented in this [facility]05-05-2022 [facility]05-03-2022 Evaluation + Plan note Diagnostic Tests Pending * Complete Metabolic Panel 12/28/21 * Lipase Level 12/28/21 [facility] 04-30-2022 [facility]04-30-2022 Miscellaneous Notes* Telephone Encounter - Velia Kaur MD - 12/25/2021 12:42 PM EDT 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 She is out of infusion sets for her insulin pump. Reviewed pump settings and endocrinology notes. Advised her to take lantus 42 units every 24 hours. Dose humalog based on ICR 10 and sensitivity 30. She has lantus at home as well as syringes. She is aware to contactoffice when she has infusion sets for instructions on timing of restarting pump. She will call us back is she has any difficulties. documented in this [facility]04-11-2022 Miscellaneous Notes* Telephone Encounter - Loretta Brown Ma - 12/06/2021 9:00 AM EDT received a fax from [facility] Patient has been approved for insulin aspart U-100 (NOVOLOG U-100 INSULIN ASPART) 100 unit/mL from 11/02/2021 to 12/04/2022 No further action is needed documented in this [facility]02-28-2022 [facility]02-25-2022 [facility]02-15-2022 Miscellaneous Notes* Telephone Encounter - Jess Guardado - 10/12/2021 10:25 AM EST Left VM for patient to call office to offer sooner apt with JOCELYNE Mcdonald. [facility] of Past illness Narrative* Problem Noted Date Resolved Date 01/28/2016 03/06/2017 Pre-existing type 1 diabetes mellitus in in first trimester 08/05/2015 10/03/2018 Fluid overload 12/10/2014 12/15/2014 Overview: Postoperative fluid overload A/P: Positive fluid balance. cont diuresis Tachycardia, unspecified 12/10/2014 015 Overview: Noted to have sinus tachycardia introap and post op A/P: HR improved with BB. Cont BB Anxiety 12/10/2014 12/13/2014 Overview: anxious at times, flat affect shaking legs post op A/p: improving, PRN xanax , resolved DVT prophylaxis 02/25/2014 04/16/2014 Overview: - IPCs care and examination 02/25/2014 04/16/2014 Overview: - Delivered by on 02/25/2014 morning - On fentanyl gtt per [employer] Plan: - [employer] team to round on patient and manage care Diabetes mellitus in 12/25/2013 0 04/16/2014 11/22/2013 04/16/2014 Overview: Recommended she consider inpatient management of her issues --- Reviewed importance of compliance. - Normal growth on ultrasound today. Biophysical profile score is reassuring. - VSD - appears smaller than on last scan - Discussed delivery at 37 weeks in the SDU - Possible risk for RDS in the but higher risks to her and the baby if is prolonged - Earlier delivery if any indications arise --- Follows with Dr. Garcia at [facility] Plan: - Continuous monitoring - F/u [employer] recs GBS (group B Streptococcus carrier), +RV culture @ 22 wks 11/11/2013 04/16/2014 Hypertension in , antepartum 09/19/2013 01/08/2014 DVT prophylaxis 12/25/2012 09/04/2013 Overview: IPCs DISPOSITION AND FOLLOW-UP 12/25/20122013 Overview: Full code Retinal detachment 10/26/2012 12/25/2012 documented as of this encounter (statuses as of 11/26/2021) [facility] of Past illness Narrative* Problem Noted Date Resolved Date 01/28/2016 03/06/2017 Pre-existing type 1 diabetes mellitus in in first trimester 08/05/2015 10/03/2018 Fluid overload 12/10/2014 12/15/2014 Overview: Postoperative fluid overload A/P: Positive fluid balance. cont diuresis Tachycardia, unspecified 12/10/2014 015 Overview: Noted to have sinus tachycardia introap and post op A/P: HR improved with BB. Cont BB Anxiety 12/10/2014 12/13/2014 Overview: anxious at times, flat affect shaking legs post op A/p: improving, PRN xanax , resolved DVT prophylaxis 02/25/2014 04/16/2014 Overview: - IPCs care and examination 02/25/2014 04/16/2014 Overview: - Delivered by on 02/25/2014 morning - On fentanyl gtt per [employer] Plan: - [employer] team to round on patient and manage care Diabetes mellitus in 12/25/2013 0 04/16/2014 11/22/2013 04/16/2014 Overview: Recommended she consider inpatient management of her issues --- Reviewed importance of compliance. - Normal growth on ultrasound today. Biophysical profile score is reassuring. - VSD - appears smaller than on last scan - Discussed delivery at 37 weeks in the SDU - Possible risk for RDS in the but higher risks to her and the baby if is prolonged - Earlier delivery if any indications arise --- Follows with Dr. Garcia at [facility] Plan: - Continuous monitoring - F/u [employer] recs GBS (group B Streptococcus carrier), +RV culture @ 22 wks 11/11/2013 04/16/2014 Hypertension in , antepartum 09/19/2013 01/08/2014 DVT prophylaxis 12/25/2012 09/04/2013 Overview: IPCs DISPOSITION AND FOLLOW-UP 12/25/20122013 Overview: Full code Retinal detachment 10/26/2012 12/25/2012 documented as of this encounter (statuses as of 11/27/2021) [facility] illness Narrative* Problem Noted Date Resolved Date 01/28/2016 03/06/2017 Pre-existing type 1 diabetes mellitus in in first trimester 08/05/2015 10/03/2018 Fluid overload 12/10/2014 12/15/2014 Overview: Postoperative fluid overload A/P: Positive fluid balance. cont diuresis Tachycardia, unspecified 12/10/2014 015 Overview: Noted to have sinus tachycardia introap and post op A/P: HR improved with BB. Cont BB Anxiety 12/10/2014 12/13/2014 Overview: anxious at times, flat affect shaking legs post op A/p: improving, PRN xanax , resolved DVT prophylaxis 02/25/2014 04/16/2014 Overview: - IPCs care and examination 02/25/2014 04/16/2014 Overview: - Delivered by on 02/25/2014 morning - On fentanyl gtt per [employer] Plan: - [employer] team to round on patient and manage care Diabetes mellitus in 12/25/2013 0 04/16/2014 11/22/2013 04/16/2014 Overview: Recommended she consider inpatient management of her issues --- Reviewed importance of compliance. - Normal growth on ultrasound today. Biophysical profile score is reassuring. - VSD - appears smaller than on last scan - Discussed delivery at 37 weeks in the SDU - Possible risk for RDS in the but higher risks to her and the baby if is prolonged - Earlier delivery if any indications arise --- Follows with Dr. Garcia at [facility] Plan: - Continuous monitoring - F/u [employer] recs GBS (group B Streptococcus carrier), +RV culture @ 22 wks 11/11/2013 04/16/2014 Hypertension in , antepartum 09/19/2013 01/08/2014 DVT prophylaxis 12/25/2012 09/04/2013 Overview: IPCs DISPOSITION AND FOLLOW-UP 12/25/20122013 Overview: Full code Retinal detachment 10/26/2012 12/25/2012 documented as of this encounter (statuses as of 12/06/2021) [facility] illness Narrative* Problem Noted Date Resolved Date 01/28/2016 03/06/2017 Pre-existing type 1 diabetes mellitus in in first trimester 08/05/2015 10/03/2018 Fluid overload 12/10/2014 12/15/2014 Overview: Postoperative fluid overload A/P: Positive fluid balance. cont diuresis Tachycardia, unspecified 12/10/2014 015 Overview: Noted to have sinus tachycardia introap and post op A/P: HR improved with BB. Cont BB Anxiety 12/10/2014 12/13/2014 Overview: anxious at times, flat affect shaking legs post op A/p: improving, PRN xanax , resolved DVT prophylaxis 02/25/2014 04/16/2014 Overview: - IPCs care and examination 02/25/2014 04/16/2014 Overview: - Delivered by on 02/25/2014 morning - On fentanyl gtt per [employer] Plan: - [employer] team to round on patient and manage care Diabetes mellitus in 12/25/2013 0 04/16/2014 11/22/2013 04/16/2014 Overview: Recommended she consider inpatient management of her issues --- Reviewed importance of compliance. - Normal growth on ultrasound today. Biophysical profile score is reassuring. - VSD - appears smaller than on last scan - Discussed delivery at 37 weeks in the SDU - Possible risk for RDS in the but higher risks to her and the baby if is prolonged - Earlier delivery if any indications arise --- Follows with Dr. Garcia at [facility] Plan: - Continuous monitoring - F/u [employer] recs GBS (group B Streptococcus carrier), +RV culture @ 22 wks 11/11/2013 04/16/2014 Hypertension in , antepartum 09/19/2013 01/08/2014 DVT prophylaxis 12/25/2012 09/04/2013 Overview: IPCs DISPOSITION AND FOLLOW-UP 12/25/20122013 Overview: Full code Retinal detachment 10/26/2012 12/25/2012 documented as of this encounter (statuses as of 12/26/2021) [facility] illness Narrative* Problem Noted Date Resolved Date 01/28/2016 03/06/2017 Pre-existing type 1 diabetes mellitus in in first trimester 08/05/2015 10/03/2018 Fluid overload 12/10/2014 12/15/2014 Overview: Postoperative fluid overload A/P: Positive fluid balance. cont diuresis Tachycardia, unspecified 12/10/2014 015 Overview: Noted to have sinus tachycardia introap and post op A/P: HR improved with BB. Cont BB Anxiety 12/10/2014 12/13/2014 Overview: anxious at times, flat affect shaking legs post op A/p: improving, PRN xanax , resolved DVT prophylaxis 02/25/2014 04/16/2014 Overview: - IPCs care and examination 02/25/2014 04/16/2014 Overview: - Delivered by on 02/25/2014 morning - On fentanyl gtt per [employer] Plan: - [employer] team to round on patient and manage care Diabetes mellitus in 12/25/2013 0 04/16/2014 11/22/2013 04/16/2014 Overview: Recommended she consider inpatient management of her issues --- Reviewed importance of compliance. - Normal growth on ultrasound today. Biophysical profile score is reassuring. - VSD - appears smaller than on last scan - Discussed delivery at 37 weeks in the SDU - Possible risk for RDS in the but higher risks to her and the baby if is prolonged - Earlier delivery if any indications arise --- Follows with Dr. Garcia at [facility] Plan: - Continuous monitoring - F/u [employer] recs GBS (group B Streptococcus carrier), +RV culture @ 22 wks 11/11/2013 04/16/2014 Hypertension in , antepartum 09/19/2013 01/08/2014 DVT prophylaxis 12/25/2012 09/04/2013 Overview: IPCs DISPOSITION AND FOLLOW-UP 12/25/20122013 Overview: Full code Retinal detachment 10/26/2012 12/25/2012 documented as of this encounter (statuses as of 12/27/2021) [facility] Narrative* Problem Noted Date Resolved Date 01/28/2016 03/06/2017 Pre-existing type 1 diabetes mellitus in in first trimester 08/05/2015 10/03/2018 Fluid overload 12/10/2014 12/15/2014 Overview: Postoperative fluid overload A/P: Positive fluid balance. cont diuresis Tachycardia, unspecified 12/10/2014 015 Overview: Noted to have sinus tachycardia introap and post op A/P: HR improved with BB. Cont BB Anxiety 12/10/2014 12/13/2014 Overview: anxious at times, flat affect shaking legs post op A/p: improving, PRN xanax , resolved DVT prophylaxis 02/25/2014 04/16/2014 Overview: - IPCs care and examination 02/25/2014 04/16/2014 Overview: - Delivered by on 02/25/2014 morning - On fentanyl gtt per [employer] Plan: - [employer] team to round on patient and manage care Diabetes mellitus in 12/25/2013 0 04/16/2014 11/22/2013 04/16/2014 Overview: Recommended she consider inpatient management of her issues --- Reviewed importance of compliance. - Normal growth on ultrasound today. Biophysical profile score is reassuring. - VSD - appears smaller than on last scan - Discussed delivery at 37 weeks in the SDU - Possible risk for RDS in the but higher risks to her and the baby if is prolonged - Earlier delivery if any indications arise --- Follows with Dr. Garcia at [facility] Plan: - Continuous monitoring - F/u [employer] recs GBS (group B Streptococcus carrier), +RV culture @ 22 wks 11/11/2013 04/16/2014 Hypertension in , antepartum 09/19/2013 01/08/2014 DVT prophylaxis 12/25/2012 09/04/2013 Overview: IPCs DISPOSITION AND FOLLOW-UP 12/25/20122013 Overview: Full code Retinal detachment 10/26/2012 12/25/2012 documented as of this encounter (statuses as of 12/29/2021) [facility] illness Narrative* Problem Noted Date Resolved Date 01/28/2016 03/06/2017 Pre-existing type 1 diabetes mellitus in in first trimester 08/05/2015 10/03/2018 Fluid overload 12/10/2014 12/15/2014 Overview: Postoperative fluid overload A/P: Positive fluid balance. cont diuresis Tachycardia, unspecified 12/10/2014 015 Overview: Noted to have sinus tachycardia introap and post op A/P: HR improved with BB. Cont BB Anxiety 12/10/2014 12/13/2014 Overview: anxious at times, flat affect shaking legs post op A/p: improving, PRN xanax , resolved DVT prophylaxis 02/25/2014 04/16/2014 Overview: - IPCs care and examination 02/25/2014 04/16/2014 Overview: - Delivered by on 02/25/2014 morning - On fentanyl gtt per [employer] Plan: - [employer] team to round on patient and manage care Diabetes mellitus in 12/25/2013 0 04/16/2014 11/22/2013 04/16/2014 Overview: Recommended she consider inpatient management of her issues --- Reviewed importance of compliance. - Normal growth on ultrasound today. Biophysical profile score is reassuring. - VSD - appears smaller than on last scan - Discussed delivery at 37 weeks in the SDU - Possible risk for RDS in the but higher risks to her and the baby if is prolonged - Earlier delivery if any indications arise --- Follows with Dr. Garcia at [facility] Plan: - Continuous monitoring - F/u [employer] recs GBS (group B Streptococcus carrier), +RV culture @ 22 wks 11/11/2013 04/16/2014 Hypertension in , antepartum 09/19/2013 01/08/2014 DVT prophylaxis 12/25/2012 09/04/2013 Overview: IPCs DISPOSITION AND FOLLOW-UP 12/25/20122013 Overview: Full code Retinal detachment 10/26/2012 12/25/2012 documented as of this encounter (statuses as of 01/28/2022) [facility] Narrative* Problem Noted Date Resolved Date 01/28/2016 03/06/2017 Pre-existing type 1 diabetes mellitus in in first trimester 08/05/2015 10/03/2018 Fluid overload 12/10/2014 12/15/2014 Overview: Postoperative fluid overload A/P: Positive fluid balance. cont diuresis Tachycardia, unspecified 12/10/2014 015 Overview: Noted to have sinus tachycardia introap and post op A/P: HR improved with BB. Cont BB Anxiety 12/10/2014 12/13/2014 Overview: anxious at times, flat affect shaking legs post op A/p: improving, PRN xanax , resolved DVT prophylaxis 02/25/2014 04/16/2014 Overview: - IPCs care and examination 02/25/2014 04/16/2014 Overview: - Delivered by on 02/25/2014 morning - On fentanyl gtt per [employer] Plan: - [employer] team to round on patient and manage care Diabetes mellitus in 12/25/2013 0 04/16/2014 11/22/2013 04/16/2014 Overview: Recommended she consider inpatient management of her issues --- Reviewed importance of compliance. - Normal growth on ultrasound today. Biophysical profile score is reassuring. - VSD - appears smaller than on last scan - Discussed delivery at 37 weeks in the SDU - Possible risk for RDS in the but higher risks to her and the baby if is prolonged - Earlier delivery if any indications arise --- Follows with Dr. Garcia at [facility] Plan: - Continuous monitoring - F/u [employer] recs GBS (group B Streptococcus carrier), +RV culture @ 22 wks 11/11/2013 04/16/2014 Hypertension in , antepartum 09/19/2013 01/08/2014 DVT prophylaxis 12/25/2012 09/04/2013 Overview: IPCs DISPOSITION AND FOLLOW-UP 12/25/20122013 Overview: Full code Retinal detachment 10/26/2012 12/25/2012 documented as of this encounter (statuses as of 01/30/2022) [facility] Narrative* Problem Noted Date Resolved Date 01/28/2016 03/06/2017 Pre-existing type 1 diabetes mellitus in in first trimester 08/05/2015 10/03/2018 Fluid overload 12/10/2014 12/15/2014 Overview: Postoperative fluid overload A/P: Positive fluid balance. cont diuresis Tachycardia, unspecified 12/10/2014 015 Overview: Noted to have sinus tachycardia introap and post op A/P: HR improved with BB. Cont BB Anxiety 12/10/2014 12/13/2014 Overview: anxious at times, flat affect shaking legs post op A/p: improving, PRN xanax , resolved DVT prophylaxis 02/25/2014 04/16/2014 Overview: - IPCs care and examination 02/25/2014 04/16/2014 Overview: - Delivered by on 02/25/2014 morning - On fentanyl gtt per [employer] Plan: - [employer] team to round on patient and manage care Diabetes mellitus in 12/25/2013 0 04/16/2014 11/22/2013 04/16/2014 Overview: Recommended she consider inpatient management of her issues --- Reviewed importance of compliance. - Normal growth on ultrasound today. Biophysical profile score is reassuring. - VSD - appears smaller than on last scan - Discussed delivery at 37 weeks in the SDU - Possible risk for RDS in the but higher risks to her and the baby if is prolonged - Earlier delivery if any indications arise --- Follows with Dr. Garcia at [facility] Plan: - Continuous monitoring - F/u [employer] recs GBS (group B Streptococcus carrier), +RV culture @ 22 wks 11/11/2013 04/16/2014 Hypertension in , antepartum 09/19/2013 01/08/2014 DVT prophylaxis 12/25/2012 09/04/2013 Overview: IPCs DISPOSITION AND FOLLOW-UP 12/25/20122013 Overview: Full code Retinal detachment 10/26/2012 12/25/2012 documented as of this encounter (statuses as of 02/24/2022) [facility] Narrative* Problem Noted Date Resolved Date 01/28/2016 03/06/2017 Pre-existing type 1 diabetes mellitus in in first trimester 08/05/2015 10/03/2018 Fluid overload 12/10/2014 12/15/2014 Overview: Postoperative fluid overload A/P: Positive fluid balance. cont diuresis Tachycardia, unspecified 12/10/2014 015 Overview: Noted to have sinus tachycardia introap and post op A/P: HR improved with BB. Cont BB Anxiety 12/10/2014 12/13/2014 Overview: anxious at times, flat affect shaking legs post op A/p: improving, PRN xanax , resolved DVT prophylaxis 02/25/2014 04/16/2014 Overview: - IPCs care and examination 02/25/2014 04/16/2014 Overview: - Delivered by on 02/25/2014 morning - On fentanyl gtt per [employer] Plan: - [employer] team to round on patient and manage care Diabetes mellitus in 12/25/2013 0 04/16/2014 11/22/2013 04/16/2014 Overview: Recommended she consider inpatient management of her issues --- Reviewed importance of compliance. - Normal growth on ultrasound today. Biophysical profile score is reassuring. - VSD - appears smaller than on last scan - Discussed delivery at 37 weeks in the SDU - Possible risk for RDS in the but higher risks to her and the baby if is prolonged - Earlier delivery if any indications arise --- Follows with Dr. Garcia at [facility] Plan: - Continuous monitoring - F/u [employer] recs GBS (group B Streptococcus carrier), +RV culture @ 22 wks 11/11/2013 04/16/2014 Hypertension in , antepartum 09/19/2013 01/08/2014 DVT prophylaxis 12/25/2012 09/04/2013 Overview: IPCs DISPOSITION AND FOLLOW-UP 12/25/20122013 Overview: Full code Retinal detachment 10/26/2012 12/25/2012 documented as of this encounter (statuses as of 03/01/2022) [facility] Narrative* Problem Noted Date Resolved Date 01/28/2016 03/06/2017 Pre-existing type 1 diabetes mellitus in in first trimester 08/05/2015 10/03/2018 Fluid overload 12/10/2014 12/15/2014 Overview: Postoperative fluid overload A/P: Positive fluid balance. cont diuresis Tachycardia, unspecified 12/10/2014 015 Overview: Noted to have sinus tachycardia introap and post op A/P: HR improved with BB. Cont BB Anxiety 12/10/2014 12/13/2014 Overview: anxious at times, flat affect shaking legs post op A/p: improving, PRN xanax , resolved DVT prophylaxis 02/25/2014 04/16/2014 Overview: - IPCs care and examination 02/25/2014 04/16/2014 Overview: - Delivered by on 02/25/2014 morning - On fentanyl gtt per [employer] Plan: - [employer] team to round on patient and manage care Diabetes mellitus in 12/25/2013 0 04/16/2014 11/22/2013 04/16/2014 Overview: Recommended she consider inpatient management of her issues --- Reviewed importance of compliance. - Normal growth on ultrasound today. Biophysical profile score is reassuring. - VSD - appears smaller than on last scan - Discussed delivery at 37 weeks in the SDU - Possible risk for RDS in the but higher risks to her and the baby if is prolonged - Earlier delivery if any indications arise --- Follows with Dr. Garcia at [facility] Plan: - Continuous monitoring - F/u [employer] recs GBS (group B Streptococcus carrier), +RV culture @ 22 wks 11/11/2013 04/16/2014 Hypertension in , antepartum 09/19/2013 01/08/2014 DVT prophylaxis 12/25/2012 09/04/2013 Overview: IPCs DISPOSITION AND FOLLOW-UP 12/25/20122013 Overview: Full code Retinal detachment 10/26/2012 12/25/2012 documented as of this encounter (statuses as of 03/07/2022) [facility] Narrative* Problem Noted Date Resolved Date 01/28/2016 03/06/2017 Pre-existing type 1 diabetes mellitus in in first trimester 08/05/2015 10/03/2018 Fluid overload 12/10/2014 12/15/2014 Overview: Postoperative fluid overload A/P: Positive fluid balance. cont diuresis Tachycardia, unspecified 12/10/2014 015 Overview: Noted to have sinus tachycardia introap and post op A/P: HR improved with BB. Cont BB Anxiety 12/10/2014 12/13/2014 Overview: anxious at times, flat affect shaking legs post op A/p: improving, PRN xanax , resolved DVT prophylaxis 02/25/2014 04/16/2014 Overview: - IPCs care and examination 02/25/2014 04/16/2014 Overview: - Delivered by on 02/25/2014 morning - On fentanyl gtt per [employer] Plan: - [employer] team to round on patient and manage care Diabetes mellitus in 12/25/2013 0 04/16/2014 11/22/2013 04/16/2014 Overview: Recommended she consider inpatient management of her issues --- Reviewed importance of compliance. - Normal growth on ultrasound today. Biophysical profile score is reassuring. - VSD - appears smaller than on last scan - Discussed delivery at 37 weeks in the SDU - Possible risk for RDS in the but higher risks to her and the baby if is prolonged - Earlier delivery if any indications arise --- Follows with Dr. Garcia at [facility] Plan: - Continuous monitoring - F/u [employer] recs GBS (group B Streptococcus carrier), +RV culture @ 22 wks 11/11/2013 04/16/2014 Hypertension in , antepartum 09/19/2013 01/08/2014 DVT prophylaxis 12/25/2012 09/04/2013 Overview: IPCs DISPOSITION AND FOLLOW-UP 12/25/20122013 Overview: Full code Retinal detachment 10/26/2012 12/25/2012 documented as of this encounter (statuses as of 03/10/2022) [facility] Narrative* Problem Noted Date Resolved Date 01/28/2016 03/06/2017 Pre-existing type 1 diabetes mellitus in in first trimester 08/05/2015 10/03/2018 Fluid overload 12/10/2014 12/15/2014 Overview: Postoperative fluid overload A/P: Positive fluid balance. cont diuresis Tachycardia, unspecified 12/10/2014 015 Overview: Noted to have sinus tachycardia introap and post op A/P: HR improved with BB. Cont BB Anxiety 12/10/2014 12/13/2014 Overview: anxious at times, flat affect shaking legs post op A/p: improving, PRN xanax , resolved DVT prophylaxis 02/25/2014 04/16/2014 Overview: - IPCs care and examination 02/25/2014 04/16/2014 Overview: - Delivered by on 02/25/2014 morning - On fentanyl gtt per [employer] Plan: - [employer] team to round on patient and manage care Diabetes mellitus in 12/25/2013 0 04/16/2014 11/22/2013 04/16/2014 Overview: Recommended she consider inpatient management of her issues --- Reviewed importance of compliance. - Normal growth on ultrasound today. Biophysical profile score is reassuring. - VSD - appears smaller than on last scan - Discussed delivery at 37 weeks in the SDU - Possible risk for RDS in the but higher risks to her and the baby if is prolonged - Earlier delivery if any indications arise --- Follows with Dr. Garcia at [facility] Plan: - Continuous monitoring - F/u [employer] recs GBS (group B Streptococcus carrier), +RV culture @ 22 wks 11/11/2013 04/16/2014 Hypertension in , antepartum 09/19/2013 01/08/2014 DVT prophylaxis 12/25/2012 09/04/2013 Overview: IPCs DISPOSITION AND FOLLOW-UP 12/25/20122013 Overview: Full code Retinal detachment 10/26/2012 12/25/2012 documented as of this encounter (statuses as of 03/11/2022) [facility] Narrative* Problem Noted Date Resolved Date 01/28/2016 03/06/2017 Pre-existing type 1 diabetes mellitus in in first trimester 08/05/2015 10/03/2018 Fluid overload 12/10/2014 12/15/2014 Overview: Postoperative fluid overload A/P: Positive fluid balance. cont diuresis Tachycardia, unspecified 12/10/2014 015 Overview: Noted to have sinus tachycardia introap and post op A/P: HR improved with BB. Cont BB Anxiety 12/10/2014 12/13/2014 Overview: anxious at times, flat affect shaking legs post op A/p: improving, PRN xanax , resolved DVT prophylaxis 02/25/2014 04/16/2014 Overview: - IPCs care and examination 02/25/2014 04/16/2014 Overview: - Delivered by on 02/25/2014 morning - On fentanyl gtt per [employer] Plan: - [employer] team to round on patient and manage care Diabetes mellitus in 12/25/2013 0 04/16/2014 11/22/2013 04/16/2014 Overview: Recommended she consider inpatient management of her issues --- Reviewed importance of compliance. - Normal growth on ultrasound today. Biophysical profile score is reassuring. - VSD - appears smaller than on last scan - Discussed delivery at 37 weeks in the SDU - Possible risk for RDS in the but higher risks to her and the baby if is prolonged - Earlier delivery if any indications arise --- Follows with Dr. Garcia at [facility] Plan: - Continuous monitoring - F/u [employer] recs GBS (group B Streptococcus carrier), +RV culture @ 22 wks 11/11/2013 04/16/2014 Hypertension in , antepartum 09/19/2013 01/08/2014 DVT prophylaxis 12/25/2012 09/04/2013 Overview: IPCs DISPOSITION AND FOLLOW-UP 12/25/20122013 Overview: Full code Retinal detachment 10/26/2012 12/25/2012 documented as of this encounter (statuses as of 04/18/2022) [facility] History of Past illness Narrative* Problem Noted Date Resolved Date 01/28/2016 03/06/2017 Pre-existing type 1 diabetes mellitus in in first trimester 08/05/2015 10/03/2018 Fluid overload 12/10/2014 12/15/2014 Overview: Postoperative fluid overload A/P: Positive fluid balance. cont diuresis Tachycardia, unspecified 12/10/2014 015 Overview: Noted to have sinus tachycardia introap and post op A/P: HR improved with BB. Cont BB Anxiety 12/10/2014 12/13/2014 Overview: anxious at times, flat affect shaking legs post op A/p: improving, PRN xanax , resolved DVT prophylaxis 02/25/2014 04/16/2014 Overview: - IPCs care and examination 02/25/2014 04/16/2014 Overview: - Delivered by on 02/25/2014 morning - On fentanyl gtt per [employer] Plan: - [facility] [employer] team to round on patient and manage care Diabetes mellitus in 12/25/2013 0 04/16/2014 11/22/2013 04/16/2014 Overview: Recommended she consider inpatient management of her issues --- Reviewed importance of compliance. - Normal growth on ultrasound today. Biophysical profile score is reassuring. - VSD - appears smaller than on last scan - Discussed delivery at 37 weeks in the SDU - Possible risk for RDS in the but higher risks to her and the baby if is prolonged - Earlier delivery if any indications arise --- Follows with Dr. Garcia at [facility] Plan: - Continuous monitoring - F/u [employer] recs GBS (group B Streptococcus carrier), +RV culture @ 22 wks 11/11/2013 04/16/2014 Hypertension in , antepartum 09/19/2013 01/08/2014 DVT prophylaxis 12/25/2012 09/04/2013 Overview: IPCs DISPOSITION AND FOLLOW-UP 12/25/20122013 Overview: Full code Retinal detachment 10/26/2012 12/25/2012 documented as of this encounter (statuses as of 05/03/2022) [facility] History of Past illness Narrative* Problem Noted Date Resolved Date 01/28/2016 03/06/2017 Pre-existing type 1 diabetes mellitus in in first trimester 08/05/2015 10/03/2018 Fluid overload 12/10/2014 12/15/2014 Overview: Postoperative fluid overload A/P: Positive fluid balance. cont diuresis Tachycardia, unspecified 12/10/2014 015 Overview: Noted to have sinus tachycardia introap and post op A/P: HR improved with BB. Cont BB Anxiety 12/10/2014 12/13/2014 Overview: anxious at times, flat affect shaking legs post op A/p: improving, PRN xanax , resolved DVT prophylaxis 02/25/2014 04/16/2014 Overview: - IPCs care and examination 02/25/2014 04/16/2014 Overview: - Delivered by on 02/25/2014 morning - On fentanyl gtt per [employer] Plan: - [facility] [employer] team to round on patient and manage care Diabetes mellitus in 12/25/2013 0 04/16/2014 11/22/2013 04/16/2014 Overview: Recommended she consider inpatient management of her issues --- Reviewed importance of compliance. - Normal growth on ultrasound today. Biophysical profile score is reassuring. - VSD - appears smaller than on last scan - Discussed delivery at 37 weeks in the SDU - Possible risk for RDS in the but higher risks to her and the baby if is prolonged - Earlier delivery if any indications arise --- Follows with Dr. Garcia at [facility] Plan: - Continuous monitoring - F/u [employer] recs GBS (group B Streptococcus carrier), +RV culture @ 22 wks 11/11/2013 04/16/2014 Hypertension in , antepartum 09/19/2013 01/08/2014 DVT prophylaxis 12/25/2012 09/04/2013 Overview: IPCs DISPOSITION AND FOLLOW-UP 12/25/20122013 Overview: Full code Retinal detachment 10/26/2012 12/25/2012 documented as of this encounter (statuses as of 05/03/2022) [facility] History of Past illness Narrative* Problem Noted Date Resolved Date 01/28/2016 03/06/2017 Pre-existing type 1 diabetes mellitus in in first trimester 08/05/2015 10/03/2018 Fluid overload 12/10/2014 12/15/2014 Overview: Postoperative fluid overload A/P: Positive fluid balance. cont diuresis Tachycardia, unspecified 12/10/2014 015 Overview: Noted to have sinus tachycardia introap and post op A/P: HR improved with BB. Cont BB Anxiety 12/10/2014 12/13/2014 Overview: anxious at times, flat affect shaking legs post op A/p: improving, PRN xanax , resolved DVT prophylaxis 02/25/2014 04/16/2014 Overview: - IPCs care and examination 02/25/2014 04/16/2014 Overview: - Delivered by on 02/25/2014 morning - On fentanyl gtt per [employer] Plan: - [employer] team to round on patient and manage care Diabetes mellitus in 12/25/2013 0 04/16/2014 11/22/2013 04/16/2014 Overview: Recommended she consider inpatient management of her issues --- Reviewed importance of compliance. - Normal growth on ultrasound today. Biophysical profile score is reassuring. - VSD - appears smaller than on last scan - Discussed delivery at 37 weeks in the SDU - Possible risk for RDS in the but higher risks to her and the baby if is prolonged - Earlier delivery if any indications arise --- Follows with Dr. Garcia at [facility] Plan: - Continuous monitoring - F/u [employer] recs GBS (group B Streptococcus carrier), +RV culture @ 22 wks 11/11/2013 04/16/2014 Hypertension in , antepartum 09/19/2013 01/08/2014 DVT prophylaxis 12/25/2012 09/04/2013 Overview: IPCs DISPOSITION AND FOLLOW-UP 12/25/20122013 Overview: Full code Retinal detachment 10/26/2012 12/25/2012 documented as of this encounter (statuses as of 05/04/2022) [facility] History of Past illness Narrative* Problem Noted Date Resolved Date 01/28/2016 03/06/2017 Pre-existing type 1 diabetes mellitus in in first trimester 08/05/2015 10/03/2018 Fluid overload 12/10/2014 12/15/2014 Overview: Postoperative fluid overload A/P: Positive fluid balance. cont diuresis Tachycardia, unspecified 12/10/2014 015 Overview: Noted to have sinus tachycardia introap and post op A/P: HR improved with BB. Cont BB Anxiety 12/10/2014 12/13/2014 Overview: anxious at times, flat affect shaking legs post op A/p: improving, PRN xanax , resolved DVT prophylaxis 02/25/2014 04/16/2014 Overview: - IPCs care and examination 02/25/2014 04/16/2014 Overview: - Delivered by on 02/25/2014 morning - On fentanyl gtt per [employer] Plan: - [employer] team to round on patient and manage care Diabetes mellitus in 12/25/2013 0 04/16/2014 11/22/2013 04/16/2014 Overview: Recommended she consider inpatient management of her issues --- Reviewed importance of compliance. - Normal growth on ultrasound today. Biophysical profile score is reassuring. - VSD - appears smaller than on last scan - Discussed delivery at 37 weeks in the SDU - Possible risk for RDS in the but higher risks to her and the baby if is prolonged - Earlier delivery if any indications arise --- Follows with Dr. Garcia at [facility] Plan: - Continuous monitoring - F/u [employer] recs GBS (group B Streptococcus carrier), +RV culture @ 22 wks 11/11/2013 04/16/2014 Hypertension in , antepartum 09/19/2013 01/08/2014 DVT prophylaxis 12/25/2012 09/04/2013 Overview: IPCs DISPOSITION AND FOLLOW-UP 12/25/20122013 Overview: Full code Retinal detachment 10/26/2012 12/25/2012 documented as of this encounter (statuses as of 05/10/2022) [facility] History of Past illness Narrative* Problem Noted Date Resolved Date 01/28/2016 03/06/2017 Pre-existing type 1 diabetes mellitus in in first trimester 08/05/2015 10/03/2018 Fluid overload 12/10/2014 12/15/2014 Overview: Postoperative fluid overload A/P: Positive fluid balance. cont diuresis Tachycardia, unspecified 12/10/2014 015 Overview: Noted to have sinus tachycardia introap and post op A/P: HR improved with BB. Cont BB Anxiety 12/10/2014 12/13/2014 Overview: anxious at times, flat affect shaking legs post op A/p: improving, PRN xanax , resolved DVT prophylaxis 02/25/2014 04/16/2014 Overview: - IPCs care and examination 02/25/2014 04/16/2014 Overview: - Delivered by on 02/25/2014 morning - On fentanyl gtt per [employer] Plan: - [employer] team to round on patient and manage care Diabetes mellitus in 12/25/2013 0 04/16/2014 11/22/2013 04/16/2014 Overview: Recommended she consider inpatient management of her issues --- Reviewed importance of compliance. - Normal growth on ultrasound today. Biophysical profile score is reassuring. - VSD - appears smaller than on last scan - Discussed delivery at 37 weeks in the SDU - Possible risk for RDS in the but higher risks to her and the baby if is prolonged - Earlier delivery if any indications arise --- Follows with Dr. Garcia at [facility] Plan: - Continuous monitoring - F/u [employer] recs GBS (group B Streptococcus carrier), +RV culture @ 22 wks 11/11/2013 04/16/2014 Hypertension in , antepartum 09/19/2013 01/08/2014 DVT prophylaxis 12/25/2012 09/04/2013 Overview: IPCs DISPOSITION AND FOLLOW-UP 12/25/20122013 Overview: Full code Retinal detachment 10/26/2012 12/25/2012 documented as of this encounter (statuses as of 05/11/2022) [facility] History of Past illness Narrative* Problem Noted Date Resolved Date 01/28/2016 03/06/2017 Pre-existing type 1 diabetes mellitus in in first trimester 08/05/2015 10/03/2018 Fluid overload 12/10/2014 12/15/2014 Overview: Postoperative fluid overload A/P: Positive fluid balance. cont diuresis Tachycardia, unspecified 12/10/2014 015 Overview: Noted to have sinus tachycardia introap and post op A/P: HR improved with BB. Cont BB Anxiety 12/10/2014 12/13/2014 Overview: anxious at times, flat affect shaking legs post op A/p: improving, PRN xanax , resolved DVT prophylaxis 02/25/2014 04/16/2014 Overview: - IPCs care and examination 02/25/2014 04/16/2014 Overview: - Delivered by on 02/25/2014 morning - On fentanyl gtt per [employer] Plan: - [employer] team to round on patient and manage care Diabetes mellitus in 12/25/2013 0 04/16/2014 11/22/2013 04/16/2014 Overview: Recommended she consider inpatient management of her issues --- Reviewed importance of compliance. - Normal growth on ultrasound today. Biophysical profile score is reassuring. - VSD - appears smaller than on last scan - Discussed delivery at 37 weeks in the SDU - Possible risk for RDS in the but higher risks to her and the baby if is prolonged - Earlier delivery if any indications arise --- Follows with Dr. Garcia at [facility] Plan: - Continuous monitoring - F/u [employer] recs GBS (group B Streptococcus carrier), +RV culture @ 22 wks 11/11/2013 04/16/2014 Hypertension in , antepartum 09/19/2013 01/08/2014 DVT prophylaxis 12/25/2012 09/04/2013 Overview: IPCs DISPOSITION AND FOLLOW-UP 12/25/20122013 Overview: Full code Retinal detachment 10/26/2012 12/25/2012 documented as of this encounter (statuses as of 05/12/2022) [facility] History of Past illness Narrative* Problem Noted Date Resolved Date 01/28/2016 03/06/2017 Pre-existing type 1 diabetes mellitus in in first trimester 08/05/2015 10/03/2018 Fluid overload 12/10/2014 12/15/2014 Overview: Postoperative fluid overload A/P: Positive fluid balance. cont diuresis Tachycardia, unspecified 12/10/2014 015 Overview: Noted to have sinus tachycardia introap and post op A/P: HR improved with BB. Cont BB Anxiety 12/10/2014 12/13/2014 Overview: anxious at times, flat affect shaking legs post op A/p: improving, PRN xanax , resolved DVT prophylaxis 02/25/2014 04/16/2014 Overview: - IPCs care and examination 02/25/2014 04/16/2014 Overview: - Delivered by on 02/25/2014 morning - On fentanyl gtt per [employer] Plan: - [employer] team to round on patient and manage care Diabetes mellitus in 12/25/2013 0 04/16/2014 11/22/2013 04/16/2014 Overview: Recommended she consider inpatient management of her issues --- Reviewed importance of compliance. - Normal growth on ultrasound today. Biophysical profile score is reassuring. - VSD - appears smaller than on last scan - Discussed delivery at 37 weeks in the SDU - Possible risk for RDS in the but higher risks to her and the baby if is prolonged - Earlier delivery if any indications arise --- Follows with Dr. Garcia at [facility] Plan: - Continuous monitoring - F/u [employer] recs GBS (group B Streptococcus carrier), +RV culture @ 22 wks 11/11/2013 04/16/2014 Hypertension in , antepartum 09/19/2013 01/08/2014 DVT prophylaxis 12/25/2012 09/04/2013 Overview: IPCs DISPOSITION AND FOLLOW-UP 12/25/20122013 Overview: Full code Retinal detachment 10/26/2012 12/25/2012 documented as of this encounter (statuses as of 05/13/2022) [facility] History of Past illness Narrative* Problem Noted Date Resolved Date 01/28/2016 03/06/2017 Pre-existing type 1 diabetes mellitus in in first trimester 08/05/2015 10/03/2018 Fluid overload 12/10/2014 12/15/2014 Overview: Postoperative fluid overload A/P: Positive fluid balance. cont diuresis Tachycardia, unspecified 12/10/2014 015 Overview: Noted to have sinus tachycardia introap and post op A/P: HR improved with BB. Cont BB Anxiety 12/10/2014 12/13/2014 Overview: anxious at times, flat affect shaking legs post op A/p: improving, PRN xanax , resolved DVT prophylaxis 02/25/2014 04/16/2014 Overview: - IPCs care and examination 02/25/2014 04/16/2014 Overview: - Delivered by on 02/25/2014 morning - On fentanyl gtt per [employer] Plan: - [employer] team to round on patient and manage care Diabetes mellitus in 12/25/2013 0 04/16/2014 11/22/2013 04/16/2014 Overview: Recommended she consider inpatient management of her issues --- Reviewed importance of compliance. - Normal growth on ultrasound today. Biophysical profile score is reassuring. - VSD - appears smaller than on last scan - Discussed delivery at 37 weeks in the SDU - Possible risk for RDS in the but higher risks to her and the baby if is prolonged - Earlier delivery if any indications arise --- Follows with Dr. Garcia at [facility] Plan: - Continuous monitoring - F/u [employer] recs GBS (group B Streptococcus carrier), +RV culture @ 22 wks 11/11/2013 04/16/2014 Hypertension in , antepartum 09/19/2013 01/08/2014 DVT prophylaxis 12/25/2012 09/04/2013 Overview: IPCs DISPOSITION AND FOLLOW-UP 12/25/20122013 Overview: Full code Retinal detachment 10/26/2012 12/25/2012 documented as of this encounter (statuses as of 05/30/2022) [facility] History of Past illness Narrative* Problem Noted Date Resolved Date 01/28/2016 03/06/2017 Pre-existing type 1 diabetes mellitus in in first trimester 08/05/2015 10/03/2018 Fluid overload 12/10/2014 12/15/2014 Overview: Postoperative fluid overload A/P: Positive fluid balance. cont diuresis Tachycardia, unspecified 12/10/2014 015 Overview: Noted to have sinus tachycardia introap and post op A/P: HR improved with BB. Cont BB Anxiety 12/10/2014 12/13/2014 Overview: anxious at times, flat affect shaking legs post op A/p: improving, PRN xanax , resolved DVT prophylaxis 02/25/2014 04/16/2014 Overview: - IPCs care and examination 02/25/2014 04/16/2014 Overview: - Delivered by on 02/25/2014 morning - On fentanyl gtt per [employer] Plan: - [employer] team to round on patient and manage care Diabetes mellitus in 12/25/2013 0 04/16/2014 11/22/2013 04/16/2014 Overview: Recommended she consider inpatient management of her issues --- Reviewed importance of compliance. - Normal growth on ultrasound today. Biophysical profile score is reassuring. - VSD - appears smaller than on last scan - Discussed delivery at 37 weeks in the SDU - Possible risk for RDS in the but higher risks to her and the baby if is prolonged - Earlier delivery if any indications arise --- Follows with Dr. Garcia at [facility] Plan: - Continuous monitoring - F/u [employer] recs GBS (group B Streptococcus carrier), +RV culture @ 22 wks 11/11/2013 04/16/2014 Hypertension in , antepartum 09/19/2013 01/08/2014 DVT prophylaxis 12/25/2012 09/04/2013 Overview: IPCs DISPOSITION AND FOLLOW-UP 12/25/20122013 Overview: Full code Retinal detachment 10/26/2012 12/25/2012 documented as of this encounter (statuses as of 06/07/2022) [facility] History of Past illness Narrative* Problem Noted Date Resolved Date 01/28/2016 03/06/2017 Pre-existing type 1 diabetes mellitus in in first trimester 08/05/2015 10/03/2018 Fluid overload 12/10/2014 12/15/2014 Overview: Postoperative fluid overload A/P: Positive fluid balance. cont diuresis Tachycardia, unspecified 12/10/2014 015 Overview: Noted to have sinus tachycardia introap and post op A/P: HR improved with BB. Cont BB Anxiety 12/10/2014 12/13/2014 Overview: anxious at times, flat affect shaking legs post op A/p: improving, PRN xanax , resolved DVT prophylaxis 02/25/2014 04/16/2014 Overview: - IPCs care and examination 02/25/2014 04/16/2014 Overview: - Delivered by on 02/25/2014 morning - On fentanyl gtt per [employer] Plan: - [employer] team to round on patient and manage care Diabetes mellitus in 12/25/2013 0 04/16/2014 11/22/2013 04/16/2014 Overview: Recommended she consider inpatient management of her issues --- Reviewed importance of compliance. - Normal growth on ultrasound today. Biophysical profile score is reassuring. - VSD - appears smaller than on last scan - Discussed delivery at 37 weeks in the SDU - Possible risk for RDS in the but higher risks to her and the baby if is prolonged - Earlier delivery if any indications arise --- Follows with Dr. Garcia at [facility] Plan: - Continuous monitoring - F/u [employer] recs GBS (group B Streptococcus carrier), +RV culture @ 22 wks 11/11/2013 04/16/2014 Hypertension in , antepartum 09/19/2013 01/08/2014 DVT prophylaxis 12/25/2012 09/04/2013 Overview: IPCs DISPOSITION AND FOLLOW-UP 12/25/20122013 Overview: Full code Retinal detachment 10/26/2012 12/25/2012 documented as of this encounter (statuses as of 06/08/2022) [facility] of Past illness Narrative* Problem Noted Date Resolved Date 01/28/2016 03/06/2017 Pre-existing type 1 diabetes mellitus in in first trimester 08/05/2015 10/03/2018 Fluid overload 12/10/2014 12/15/2014 Overview: Postoperative fluid overload A/P: Positive fluid balance. cont diuresis Tachycardia, unspecified 12/10/2014 015 Overview: Noted to have sinus tachycardia introap and post op A/P: HR improved with BB. Cont BB Anxiety 12/10/2014 12/13/2014 Overview: anxious at times, flat affect shaking legs post op A/p: improving, PRN xanax , resolved DVT prophylaxis 02/25/2014 04/16/2014 Overview: - IPCs care and examination 02/25/2014 04/16/2014 Overview: - Delivered by on 02/25/2014 morning - On fentanyl gtt per [employer] Plan: - [employer] team to round on patient and manage care Diabetes mellitus in 12/25/2013 0 04/16/2014 11/22/2013 04/16/2014 Overview: Recommended she consider inpatient management of her issues --- Reviewed importance of compliance. - Normal growth on ultrasound today. Biophysical profile score is reassuring. - VSD - appears smaller than on last scan - Discussed delivery at 37 weeks in the SDU - Possible risk for RDS in the but higher risks to her and the baby if is prolonged - Earlier delivery if any indications arise --- Follows with Dr. Garcia at [facility] Plan: - Continuous monitoring - F/u [employer] recs GBS (group B Streptococcus carrier), +RV culture @ 22 wks 11/11/2013 04/16/2014 Hypertension in , antepartum 09/19/2013 01/08/2014 DVT prophylaxis 12/25/2012 09/04/2013 Overview: IPCs DISPOSITION AND FOLLOW-UP 12/25/20122013 Overview: Full code Retinal detachment 10/26/2012 12/25/2012 documented as of this encounter (statuses as of 06/16/2022) [facility] History of Past illness Narrative* Problem Noted Date Resolved Date 01/28/2016 03/06/2017 Pre-existing type 1 diabetes mellitus in in first trimester 08/05/2015 10/03/2018 Fluid overload 12/10/2014 12/15/2014 Overview: Postoperative fluid overload A/P: Positive fluid balance. cont diuresis Tachycardia, unspecified 12/10/2014 015 Overview: Noted to have sinus tachycardia introap and post op A/P: HR improved with BB. Cont BB Anxiety 12/10/2014 12/13/2014 Overview: anxious at times, flat affect shaking legs post op A/p: improving, PRN xanax , resolved DVT prophylaxis 02/25/2014 04/16/2014 Overview: - IPCs care and examination 02/25/2014 04/16/2014 Overview: - Delivered by on 02/25/2014 morning - On fentanyl gtt per [employer] Plan: - [employer] team to round on patient and manage care Diabetes mellitus in 12/25/2013 0 04/16/2014 11/22/2013 04/16/2014 Overview: Recommended she consider inpatient management of her issues --- Reviewed importance of compliance. - Normal growth on ultrasound today. Biophysical profile score is reassuring. - VSD - appears smaller than on last scan - Discussed delivery at 37 weeks in the SDU - Possible risk for RDS in the but higher risks to her and the baby if is prolonged - Earlier delivery if any indications arise --- Follows with Dr. Garcia at [facility] Plan: - Continuous monitoring - F/u [employer] recs GBS (group B Streptococcus carrier), +RV culture @ 22 wks 11/11/2013 04/16/2014 Hypertension in , antepartum 09/19/2013 01/08/2014 DVT prophylaxis 12/25/2012 09/04/2013 Overview: IPCs DISPOSITION AND FOLLOW-UP 12/25/20122013 Overview: Full code Retinal detachment 10/26/2012 12/25/2012 documented as of this encounter (statuses as of 07/12/2022) [facility] History of Past illness Narrative* Problem Noted Date Resolved Date 01/28/2016 03/06/2017 Pre-existing type 1 diabetes mellitus in in first trimester 08/05/2015 10/03/2018 Fluid overload 12/10/2014 12/15/2014 Overview: Postoperative fluid overload A/P: Positive fluid balance. cont diuresis Tachycardia, unspecified 12/10/2014 015 Overview: Noted to have sinus tachycardia introap and post op A/P: HR improved with BB. Cont BB Anxiety 12/10/2014 12/13/2014 Overview: anxious at times, flat affect shaking legs post op A/p: improving, PRN xanax , resolved DVT prophylaxis 02/25/2014 04/16/2014 Overview: - IPCs care and examination 02/25/2014 04/16/2014 Overview: - Delivered by on 02/25/2014 morning - On fentanyl gtt per [employer] Plan: - [employer] team to round on patient and manage care Diabetes mellitus in 12/25/2013 0 04/16/2014 11/22/2013 04/16/2014 Overview: Recommended she consider inpatient management of her issues --- Reviewed importance of compliance. - Normal growth on ultrasound today. Biophysical profile score is reassuring. - VSD - appears smaller than on last scan - Discussed delivery at 37 weeks in the SDU - Possible risk for RDS in the but higher risks to her and the baby if is prolonged - Earlier delivery if any indications arise --- Follows with Dr. Garcia at [facility] Plan: - Continuous monitoring - F/u [employer] recs GBS (group B Streptococcus carrier), +RV culture @ 22 wks 11/11/2013 04/16/2014 Hypertension in , antepartum 09/19/2013 01/08/2014 DVT prophylaxis 12/25/2012 09/04/2013 Overview: IPCs DISPOSITION AND FOLLOW-UP 12/25/20122013 Overview: Full code Retinal detachment 10/26/2012 12/25/2012 documented as of this encounter (statuses as of 07/25/2022) [facility] History of Past illness Narrative* Problem Noted Date Resolved Date 01/28/2016 03/06/2017 Pre-existing type 1 diabetes mellitus in in first trimester 08/05/2015 10/03/2018 Fluid overload 12/10/2014 12/15/2014 Overview: Postoperative fluid overload A/P: Positive fluid balance. cont diuresis Tachycardia, unspecified 12/10/2014 015 Overview: Noted to have sinus tachycardia introap and post op A/P: HR improved with BB. Cont BB Anxiety 12/10/2014 12/13/2014 Overview: anxious at times, flat affect shaking legs post op A/p: improving, PRN xanax , resolved DVT prophylaxis 02/25/2014 04/16/2014 Overview: - IPCs care and examination 02/25/2014 04/16/2014 Overview: - Delivered by on 02/25/2014 morning - On fentanyl gtt per [employer] Plan: - [employer] team to round on patient and manage care Diabetes mellitus in 12/25/2013 0 04/16/2014 11/22/2013 04/16/2014 Overview: Recommended she consider inpatient management of her issues --- Reviewed importance of compliance. - Normal growth on ultrasound today. Biophysical profile score is reassuring. - VSD - appears smaller than on last scan - Discussed delivery at 37 weeks in the SDU - Possible risk for RDS in the but higher risks to her and the baby if is prolonged - Earlier delivery if any indications arise --- Follows with Dr. Garcia at [facility] Plan: - Continuous monitoring - F/u [employer] recs GBS (group B Streptococcus carrier), +RV culture @ 22 wks 11/11/2013 04/16/2014 Hypertension in , antepartum 09/19/2013 01/08/2014 DVT prophylaxis 12/25/2012 09/04/2013 Overview: IPCs DISPOSITION AND FOLLOW-UP 12/25/20122013 Overview: Full code Retinal detachment 10/26/2012 12/25/2012 documented as of this encounter (statuses as of 08/05/2022) [facility] History of Past illness Narrative* Problem Noted Date Resolved Date 01/28/2016 03/06/2017 Pre-existing type 1 diabetes mellitus in in first trimester 08/05/2015 10/03/2018 Fluid overload 12/10/2014 12/15/2014 Overview: Postoperative fluid overload A/P: Positive fluid balance. cont diuresis Tachycardia, unspecified 12/10/2014 015 Overview: Noted to have sinus tachycardia introap and post op A/P: HR improved with BB. Cont BB Anxiety 12/10/2014 12/13/2014 Overview: anxious at times, flat affect shaking legs post op A/p: improving, PRN xanax , resolved DVT prophylaxis 02/25/2014 04/16/2014 Overview: - IPCs care and examination 02/25/2014 04/16/2014 Overview: - Delivered by on 02/25/2014 morning - On fentanyl gtt per [employer] Plan: - [employer] team to round on patient and manage care Diabetes mellitus in 12/25/2013 0 04/16/2014 11/22/2013 04/16/2014 Overview: Recommended she consider inpatient management of her issues --- Reviewed importance of compliance. - Normal growth on ultrasound today. Biophysical profile score is reassuring. - VSD - appears smaller than on last scan - Discussed delivery at 37 weeks in the SDU - Possible risk for RDS in the but higher risks to her and the baby if is prolonged - Earlier delivery if any indications arise --- Follows with Dr. Garcia at [facility] Plan: - Continuous monitoring - F/u [employer] recs GBS (group B Streptococcus carrier), +RV culture @ 22 wks 11/11/2013 04/16/2014 Hypertension in , antepartum 09/19/2013 01/08/2014 DVT prophylaxis 12/25/2012 09/04/2013 Overview: IPCs DISPOSITION AND FOLLOW-UP 12/25/20122013 Overview: Full code Retinal detachment 10/26/2012 12/25/2012 documented as of this encounter (statuses as of 08/16/2022) [facility] History of Past illness Narrative* Problem Noted Date Resolved Date 01/28/2016 03/06/2017 Pre-existing type 1 diabetes mellitus in in first trimester 08/05/2015 10/03/2018 Fluid overload 12/10/2014 12/15/2014 Overview: Postoperative fluid overload A/P: Positive fluid balance. cont diuresis Tachycardia, unspecified 12/10/2014 015 Overview: Noted to have sinus tachycardia introap and post op A/P: HR improved with BB. Cont BB Anxiety 12/10/2014 12/13/2014 Overview: anxious at times, flat affect shaking legs post op A/p: improving, PRN xanax , resolved DVT prophylaxis 02/25/2014 04/16/2014 Overview: - IPCs care and examination 02/25/2014 04/16/2014 Overview: - Delivered by on 02/25/2014 morning - On fentanyl gtt per [employer] Plan: - [employer] team to round on patient and manage care Diabetes mellitus in 12/25/2013 0 04/16/2014 11/22/2013 04/16/2014 Overview: Recommended she consider inpatient management of her issues --- Reviewed importance of compliance. - Normal growth on ultrasound today. Biophysical profile score is reassuring. - VSD - appears smaller than on last scan - Discussed delivery at 37 weeks in the SDU - Possible risk for RDS in the but higher risks to her and the baby if is prolonged - Earlier delivery if any indications arise --- Follows with Dr. Garcia at [facility] Plan: - Continuous monitoring - F/u [employer] recs GBS (group B Streptococcus carrier), +RV culture @ 22 wks 11/11/2013 04/16/2014 Hypertension in , antepartum 09/19/2013 01/08/2014 DVT prophylaxis 12/25/2012 09/04/2013 Overview: IPCs DISPOSITION AND FOLLOW-UP 12/25/20122013 Overview: Full code Retinal detachment 10/26/2012 12/25/2012 documented as of this encounter (statuses as of 09/02/2022) [facility] History of Past illness Narrative* Problem Noted Date Resolved Date 01/28/2016 03/06/2017 Pre-existing type 1 diabetes mellitus in in first trimester 08/05/2015 10/03/2018 Fluid overload 12/10/2014 12/15/2014 Overview: Postoperative fluid overload A/P: Positive fluid balance. cont diuresis Tachycardia, unspecified 12/10/2014 015 Overview: Noted to have sinus tachycardia introap and post op A/P: HR improved with BB. Cont BB Anxiety 12/10/2014 12/13/2014 Overview: anxious at times, flat affect shaking legs post op A/p: improving, PRN xanax , resolved DVT prophylaxis 02/25/2014 04/16/2014 Overview: - IPCs care and examination 02/25/2014 04/16/2014 Overview: - Delivered by on 02/25/2014 morning - On fentanyl gtt per [employer] Plan: - [employer] team to round on patient and manage care Diabetes mellitus in 12/25/2013 0 04/16/2014 11/22/2013 04/16/2014 Overview: Recommended she consider inpatient management of her issues --- Reviewed importance of compliance. - Normal growth on ultrasound today. Biophysical profile score is reassuring. - VSD - appears smaller than on last scan - Discussed delivery at 37 weeks in the SDU - Possible risk for RDS in the but higher risks to her and the baby if is prolonged - Earlier delivery if any indications arise --- Follows with Dr. Garcia at [facility] Plan: - Continuous monitoring - F/u [employer] recs GBS (group B Streptococcus carrier), +RV culture @ 22 wks 11/11/2013 04/16/2014 Hypertension in , antepartum 09/19/2013 01/08/2014 DVT prophylaxis 12/25/2012 09/04/2013 Overview: IPCs DISPOSITION AND FOLLOW-UP 12/25/20122013 Overview: Full code Retinal detachment 10/26/2012 12/25/2012 documented as of this encounter (statuses as of 09/07/2022) [facility] History of Past illness Narrative* Problem Noted Date Resolved Date 01/28/2016 03/06/2017 Pre-existing type 1 diabetes mellitus in in first trimester 08/05/2015 10/03/2018 Fluid overload 12/10/2014 12/15/2014 Overview: Postoperative fluid overload A/P: Positive fluid balance. cont diuresis Tachycardia, unspecified 12/10/2014 015 Overview: Noted to have sinus tachycardia introap and post op A/P: HR improved with BB. Cont BB Anxiety 12/10/2014 12/13/2014 Overview: anxious at times, flat affect shaking legs post op A/p: improving, PRN xanax , resolved DVT prophylaxis 02/25/2014 04/16/2014 Overview: - IPCs care and examination 02/25/2014 04/16/2014 Overview: - Delivered by on 02/25/2014 morning - On fentanyl gtt per [employer] Plan: - [employer] team to round on patient and manage care Diabetes mellitus in 12/25/2013 0 04/16/2014 11/22/2013 04/16/2014 Overview: Recommended she consider inpatient management of her issues --- Reviewed importance of compliance. - Normal growth on ultrasound today. Biophysical profile score is reassuring. - VSD - appears smaller than on last scan - Discussed delivery at 37 weeks in the SDU - Possible risk for RDS in the but higher risks to her and the baby if is prolonged - Earlier delivery if any indications arise --- Follows with Dr. Garcia at [facility] Plan: - Continuous monitoring - F/u [employer] recs GBS (group B Streptococcus carrier), +RV culture @ 22 wks 11/11/2013 04/16/2014 Hypertension in , antepartum 09/19/2013 01/08/2014 DVT prophylaxis 12/25/2012 09/04/2013 Overview: IPCs DISPOSITION AND FOLLOW-UP 12/25/20122013 Overview: Full code Retinal detachment 10/26/2012 12/25/2012 documented as of this encounter (statuses as of 09/20/2022) [facility] History of Past illness Narrative* Problem Noted Date Resolved Date 01/28/2016 03/06/2017 Pre-existing type 1 diabetes mellitus in in first trimester 08/05/2015 10/03/2018 Fluid overload 12/10/2014 12/15/2014 Overview: Postoperative fluid overload A/P: Positive fluid balance. cont diuresis Tachycardia, unspecified 12/10/2014 015 Overview: Noted to have sinus tachycardia introap and post op A/P: HR improved with BB. Cont BB Anxiety 12/10/2014 12/13/2014 Overview: anxious at times, flat affect shaking legs post op A/p: improving, PRN xanax , resolved DVT prophylaxis 02/25/2014 04/16/2014 Overview: - IPCs care and examination 02/25/2014 04/16/2014 Overview: - Delivered by on 02/25/2014 morning - On fentanyl gtt per [employer] Plan: - [employer] team to round on patient and manage care Diabetes mellitus in 12/25/2013 0 04/16/2014 11/22/2013 04/16/2014 Overview: Recommended she consider inpatient management of her issues --- Reviewed importance of compliance. - Normal growth on ultrasound today. Biophysical profile score is reassuring. - VSD - appears smaller than on last scan - Discussed delivery at 37 weeks in the SDU - Possible risk for RDS in the but higher risks to her and the baby if is prolonged - Earlier delivery if any indications arise --- Follows with Dr. Garcia at [facility] Plan: - Continuous monitoring - F/u [employer] recs GBS (group B Streptococcus carrier), +RV culture @ 22 wks 11/11/2013 04/16/2014 Hypertension in , antepartum 09/19/2013 01/08/2014 DVT prophylaxis 12/25/2012 09/04/2013 Overview: IPCs DISPOSITION AND FOLLOW-UP 12/25/20122013 Overview: Full code Retinal detachment 10/26/2012 12/25/2012 documented as of this encounter (statuses as of 10/22/2022) [facility] History of Past illness Narrative* Problem Noted Date Resolved Date 01/28/2016 03/06/2017 Pre-existing type 1 diabetes mellitus in in first trimester 08/05/2015 10/03/2018 Fluid overload 12/10/2014 12/15/2014 Overview: Postoperative fluid overload A/P: Positive fluid balance. cont diuresis Tachycardia, unspecified 12/10/2014 015 Overview: Noted to have sinus tachycardia introap and post op A/P: HR improved with BB. Cont BB Anxiety 12/10/2014 12/13/2014 Overview: anxious at times, flat affect shaking legs post op A/p: improving, PRN xanax , resolved DVT prophylaxis 02/25/2014 04/16/2014 Overview: - IPCs care and examination 02/25/2014 04/16/2014 Overview: - Delivered by on 02/25/2014 morning - On fentanyl gtt per [employer] Plan: - [employer] team to round on patient and manage care Diabetes mellitus in 12/25/2013 0 04/16/2014 11/22/2013 04/16/2014 Overview: Recommended she consider inpatient management of her issues --- Reviewed importance of compliance. - Normal growth on ultrasound today. Biophysical profile score is reassuring. - VSD - appears smaller than on last scan - Discussed delivery at 37 weeks in the SDU - Possible risk for RDS in the but higher risks to her and the baby if is prolonged - Earlier delivery if any indications arise --- Follows with Dr. Garcia at [facility] Plan: - Continuous monitoring - F/u [employer] recs GBS (group B Streptococcus carrier), +RV culture @ 22 wks 11/11/2013 04/16/2014 Hypertension in , antepartum 09/19/2013 01/08/2014 DVT prophylaxis 12/25/2012 09/04/2013 Overview: IPCs DISPOSITION AND FOLLOW-UP 12/25/20122013 Overview: Full code Retinal detachment 10/26/2012 12/25/2012 documented as of this encounter (statuses as of 11/03/2022) [facility] History of Past illness Narrative* Problem Noted Date Resolved Date 01/28/2016 03/06/2017 Pre-existing type 1 diabetes mellitus in in first trimester 08/05/2015 10/03/2018 Fluid overload 12/10/2014 12/15/2014 Overview: Postoperative fluid overload A/P: Positive fluid balance. cont diuresis Tachycardia, unspecified 12/10/2014 015 Overview: Noted to have sinus tachycardia introap and post op A/P: HR improved with BB. Cont BB Anxiety 12/10/2014 12/13/2014 Overview: anxious at times, flat affect shaking legs post op A/p: improving, PRN xanax , resolved DVT prophylaxis 02/25/2014 04/16/2014 Overview: - IPCs care and examination 02/25/2014 04/16/2014 Overview: - Delivered by on 02/25/2014 morning - On fentanyl gtt per [employer] Plan: - [employer] team to round on patient and manage care Diabetes mellitus in 12/25/2013 0 04/16/2014 11/22/2013 04/16/2014 Overview: Recommended she consider inpatient management of her issues --- Reviewed importance of compliance. - Normal growth on ultrasound today. Biophysical profile score is reassuring. - VSD - appears smaller than on last scan - Discussed delivery at 37 weeks in the SDU - Possible risk for RDS in the but higher risks to her and the baby if is prolonged - Earlier delivery if any indications arise --- Follows with Dr. Garcia at [facility] Plan: - Continuous monitoring - F/u [employer] recs GBS (group B Streptococcus carrier), +RV culture @ 22 wks 11/11/2013 04/16/2014 Hypertension in , antepartum 09/19/2013 01/08/2014 DVT prophylaxis 12/25/2012 09/04/2013 Overview: IPCs DISPOSITION AND FOLLOW-UP 12/25/20122013 Overview: Full code Retinal detachment 10/26/2012 12/25/2012 documented as of this encounter (statuses as of 11/07/2022) [facility] History of Past illness Narrative* Problem Noted Date Resolved Date 01/28/2016 03/06/2017 Pre-existing type 1 diabetes mellitus in in first trimester 08/05/2015 10/03/2018 Fluid overload 12/10/2014 12/15/2014 Overview: Postoperative fluid overload A/P: Positive fluid balance. cont diuresis Tachycardia, unspecified 12/10/2014 015 Overview: Noted to have sinus tachycardia introap and post op A/P: HR improved with BB. Cont BB Anxiety 12/10/2014 12/13/2014 Overview: anxious at times, flat affect shaking legs post op A/p: improving, PRN xanax , resolved DVT prophylaxis 02/25/2014 04/16/2014 Overview: - IPCs care and examination 02/25/2014 04/16/2014 Overview: - Delivered by on 02/25/2014 morning - On fentanyl gtt per [employer] Plan: - [employer] team to round on patient and manage care Diabetic ketoacidosis withou t coma associated with type 1 diabetes mellitus 01/08/2014 02/04/2023 Overview: Type 1 diabetes with poor control, frequent DKA episodes --- Throughout the day she takes insulin to keep sugars 80-150 - Presented to [facility] on 01/08/2014 with sub-sternal chest pain in the setting of DKA, blood glucose level ~300 - She recently was admitted on 11/08/13 for DKA as well Plan: - Carb Controlled diet - BMP / Mag / Phos q8 hours - Appreciate endocrinology recs - Per Endo goal blood sugar should be 90-120 before meals - Basal insulin levemir 26 u q 12 hrs - Novolog sliding scale AC/HS: - Accuchecks AC/HS Diabetes mellitus in 12/25/2013 0 04/16/2014 11/22/2013 04/16/2014 Overview: Recommended she consider inpatient management of her issues --- Reviewed importance of compliance. - Normal growth on ultrasound today. Biophysical profile score is reassuring. - VSD - appears smaller than on last scan - Discussed delivery at 37 weeks in the SDU - Possible risk for RDS in the but higher risks to her and the baby if is prolonged - Earlier delivery if any indications arise --- Follows with Dr. Garcia at [facility] Plan: - Continuous monitoring - F/u [employer] recs GBS (group B Streptococcus carrier), +RV culture @ 22 wks 11/11/2013 04/16/2014 Hypertension in , antepartum 09/19/2013 01/08/2014 DVT prophylaxis 12/25/2012 09/04/2013 Overview: IPCs DISPOSITION AND FOLLOW-UP 12/25/20122013 Overview: Full code Retinal detachment 10/26/2012 12/25/2012 documented as of this encounter (statuses as of 02/08/2023) [facility] History of Past illness Narrative* Problem Noted Date Resolved Date 01/28/2016 03/06/2017 Pre-existing type 1 diabetes mellitus in in first trimester 08/05/2015 10/03/2018 Fluid overload 12/10/2014 12/15/2014 Overview: Postoperative fluid overload A/P: Positive fluid balance. cont diuresis Tachycardia, unspecified 12/10/2014 04/ 015 Overview: Noted to have sinus tachycardia introap and post op A/P: HR improved with BB. Cont BB Anxiety 12/10/2014 12/13/2014 Overview: anxious at times, flat affect shaking legs post op A/p: improving, PRN xanax , resolved DVT prophylaxis 02/25/2014 04/16/2014 Overview: - IPCs care and examination 02/25/2014 04/16/2014 Overview: - Delivered by on 02/25/2014 morning - On fentanyl gtt per [employer] Plan: - [employer] team to round on patient and manage care Diabetic ketoacidosis withou t coma associated with type 1 diabetes mellitus 01/08/2014 02/04/2023 Overview: Type 1 diabetes with poor control, frequent DKA episodes --- Throughout the day she takes insulin to keep sugars 80-150 - Presented to [facility] on 01/08/2014 with sub-sternal chest pain in the setting of DKA, blood glucose level ~300 - She recently was admitted on 11/08/13 for DKA as well Plan: - Carb Controlled diet - BMP / Mag / Phos q8 hours - Appreciate endocrinology recs - Per Endo goal blood sugar should be 90-120 before meals - Basal insulin levemir 26 u q 12 hrs - Novolog sliding scale AC/HS: - Accuchecks AC/HS Diabetes mellitus in 12/25/2013 0 04/16/2014 11/22/2013 04/16/2014 Overview: Recommended she consider inpatient management of her issues --- Reviewed importance of compliance. - Normal growth on ultrasound today. Biophysical profile score is reassuring. - VSD - appears smaller than on last scan - Discussed delivery at 37 weeks in the SDU - Possible risk for RDS in the but higher risks to her and the baby if is prolonged - Earlier delivery if any indications arise --- Follows with Dr. Garcia at [facility] Plan: - Continuous monitoring - F/u [employer] recs GBS (group B Streptococcus carrier), +RV culture @ 22 wks 11/11/2013 04/16/2014 Hypertension in , antepartum 09/19/2013 01/08/2014 DVT prophylaxis 12/25/2012 09/04/2013 Overview: IPCs DISPOSITION AND FOLLOW-UP 12/25/20122013 Overview: Full code Retinal detachment 10/26/2012 12/25/2012 documented as of this encounter (statuses as of 02/15/2023) [facility] History of Past illness Narrative* Problem Noted Date Diagnosed Date Resolved Date 01/28/2016 03/06/2017 Pre-existing type 1 diabetes mellitus in in first trimester 08/05/2015 10/03/2018 Fluid overload 12/10/2014 12/15/2014 Overview: Postoperative fluid overload A/P: Positive fluid balance. cont diuresis Tachycardia, unspecified 12/10/2014 Overview: Noted to have sinus tachycardia introap and post op A/P: HR improved with BB. Cont BB Anxiety 12/10/2014 12/13/2014 Overview: anxious at times, flat affect shaking legs post op A/p: improving, PRN xanax , resolved DVT prophylaxis 02/25/2014 04/16/2014 Overview: - IPCs care and examination 02/25/2014 04/16/2014 Overview: - Delivered by on 02/25/2014 morning - On fentanyl gtt per [employer] Plan: - [employer] team to round on patient and manage care Diabetic ketoacidosis withou t coma associated with type 1 diabetes mellitus 01/08/2014 02/04/2023 Overview: Type 1 diabetes with poor control, frequent DKA episodes --- Throughout the day she takes insulin to keep sugars 80-150 - Presented to [facility] on 01/08/2014 with sub-sternal chest pain in the setting of DKA, blood glucose level ~300 - She recently was admitted on 11/08/13 for DKA as well Plan: - Carb Controlled diet - BMP / Mag / Phos q8 hours - Appreciate endocrinology recs - Per Endo goal blood sugar should be 90-120 before meals - Basal insulin levemir 26 u q 12 hrs - Novolog sliding scale AC/HS: - Accuchecks AC/HS Diabetes mellitus in 12/25/2013 04/16/2014 11/22/2013 04/16/2014 Overview: Recommended she consider inpatient management of her issues --- Reviewed importance of compliance. - Normal growth on ultrasound today. Biophysical profile score is reassuring. - VSD - appears smaller than on last scan - Discussed delivery at 37 weeks in the SDU - Possible risk for RDS in the but higher risks to her and the baby if is prolonged - Earlier delivery if any indications arise --- Follows with Dr. Garcia at [facility] Plan: - Continuous monitoring - F/u [employer] recs GBS (group B Streptococcus c arrier), +RV culture @ 22 wks 11/11/2013 04/16/2014 Hypertension in , antepartum 09/19/2013 01/08/2014 DVT prophylaxis 12/25/2012 09/04/2013 Overview: IPCs DISPOSITION AND FOLLOW-UP 12/25/2012 Overview: Full code Retinal detachment 10/26/2012 3 documented as of this encounter (statuses as of 06/02/2023) [facility] History of Past illness Narrative* Problem Noted Date Diagnosed Date Resolved Date 01/28/2016 03/06/2017 Pre-existing type 1 diabetes mellitus in in first trimester 08/05/2015 10/03/2018 Fluid overload 12/10/2014 12/15/2014 Overview: Postoperative fluid overload A/P: Positive fluid balance. cont diuresis Tachycardia, unspecified 12/10/2014 Overview: Noted to have sinus tachycardia introap and post op A/P: HR improved with BB. Cont BB Anxiety 12/10/2014 12/13/2014 Overview: anxious at times, flat affect shaking legs post op A/p: improving, PRN xanax , resolved DVT prophylaxis 02/25/2014 04/16/2014 Overview: - IPCs care and examination 02/25/2014 04/16/2014 Overview: - Delivered by on 02/25/2014 morning - On fentanyl gtt per [employer] Plan: - [employer] team to round on patient and manage care Diabetic ketoacidosis withou t coma associated with type 1 diabetes mellitus 01/08/2014 02/04/2023 Overview: Type 1 diabetes with poor control, frequent DKA episodes --- Throughout the day she takes insulin to keep sugars 80-150 - Presented to [facility] on 01/08/2014 with sub-sternal chest pain in the setting of DKA, blood glucose level ~300 - She recently was admitted on 11/08/13 for DKA as well Plan: - Carb Controlled diet - BMP / Mag / Phos q8 hours - Appreciate endocrinology recs - Per Endo goal blood sugar should be 90-120 before meals - Basal insulin levemir 26 u q 12 hrs - Novolog sliding scale AC/HS: - Accuchecks AC/HS Diabetes mellitus in 12/25/2013 04/16/2014 11/22/2013 04/16/2014 Overview: Recommended she consider inpatient management of her issues --- Reviewed importance of compliance. - Normal growth on ultrasound today. Biophysical profile score is reassuring. - VSD - appears smaller than on last scan - Discussed delivery at 37 weeks in the SDU - Possible risk for RDS in the but higher risks to her and the baby if is prolonged - Earlier delivery if any indications arise --- Follows with Dr. Garcia at [facility] Plan: - Continuous monitoring - F/u [employer] recs GBS (group B Streptococcus c arrier), +RV culture @ 22 wks 11/11/2013 04/16/2014 Hypertension in , antepartum 09/19/2013 01/08/2014 DVT prophylaxis 12/25/2012 09/04/2013 Overview: IPCs DISPOSITION AND FOLLOW-UP 12/25/2012 Overview: Full code Retinal detachment 10/26/2012 3 documented as of this encounter (statuses as of 08/16/2023) [facility] History of Past illness Narrative* Problem Noted Date Diagnosed Date Resolved Date 01/28/2016 03/06/2017 Pre-existing type 1 diabetes mellitus in in first trimester 08/05/2015 10/03/2018 Fluid overload 12/10/2014 12/15/2014 Overview: Postoperative fluid overload A/P: Positive fluid balance. cont diuresis Tachycardia, unspecified 12/10/2014 Overview: Noted to have sinus tachycardia introap and post op A/P: HR improved with BB. Cont BB Anxiety 12/10/2014 12/13/2014 Overview: anxious at times, flat affect shaking legs post op A/p: improving, PRN xanax , resolved DVT prophylaxis 02/25/2014 04/16/2014 Overview: - IPCs care and examination 02/25/2014 04/16/2014 Overview: - Delivered by on 02/25/2014 morning - On fentanyl gtt per [employer] Plan: - [employer] team to round on patient and manage care Diabetic ketoacidosis withou t coma associated with type 1 diabetes mellitus 01/08/2014 02/04/2023 Overview: Type 1 diabetes with poor control, frequent DKA episodes --- Throughout the day she takes insulin to keep sugars 80-150 - Presented to [facility] on 01/08/2014 with sub-sternal chest pain in the setting of DKA, blood glucose level ~300 - She recently was admitted on 11/08/13 for DKA as well Plan: - Carb Controlled diet - BMP / Mag / Phos q8 hours - Appreciate endocrinology recs - Per Endo goal blood sugar should be 90-120 before meals - Basal insulin levemir 26 u q 12 hrs - Novolog sliding scale AC/HS: - Accuchecks AC/HS Diabetes mellitus in 12/25/2013 04/16/2014 11/22/2013 04/16/2014 Overview: Recommended she consider inpatient management of her issues --- Reviewed importance of compliance. - Normal growth on ultrasound today. Biophysical profile score is reassuring. - VSD - appears smaller than on last scan - Discussed delivery at 37 weeks in the SDU - Possible risk for RDS in the but higher risks to her and the baby if is prolonged - Earlier delivery if any indications arise --- Follows with Dr. Garcia at [facility] Plan: - Continuous monitoring - F/u [employer] recs GBS (group B Streptococcus c arrier), +RV culture @ 22 wks 11/11/2013 04/16/2014 Hypertension in , antepartum 09/19/2013 01/08/2014 DVT prophylaxis 12/25/2012 09/04/2013 Overview: IPCs DISPOSITION AND FOLLOW-UP 12/25/2012 Overview: Full code Retinal detachment 10/26/2012 3 documented as of this encounter (statuses as of 09/29/2023) [facility] History of Past illness Narrative* Problem Noted Date Diagnosed Date Resolved Date 01/28/2016 03/06/2017 Pre-existing type 1 diabetes mellitus in in first trimester 08/05/2015 10/03/2018 Fluid overload 12/10/2014 12/15/2014 Overview: Postoperative fluid overload A/P: Positive fluid balance. cont diuresis Tachycardia, unspecified 12/10/2014 Overview: Noted to have sinus tachycardia introap and post op A/P: HR improved with BB. Cont BB Anxiety 12/10/2014 12/13/2014 Overview: anxious at times, flat affect shaking legs post op A/p: improving, PRN xanax , resolved DVT prophylaxis 02/25/2014 04/16/2014 Overview: - IPCs care and examination 02/25/2014 04/16/2014 Overview: - Delivered by on 02/25/2014 morning - On fentanyl gtt per [employer] Plan: - [employer] team to round on patient and manage care Diabetic ketoacidosis withou t coma associated with type 1 diabetes mellitus 01/08/2014 02/04/2023 Overview: Type 1 diabetes with poor control, frequent DKA episodes --- Throughout the day she takes insulin to keep sugars 80-150 - Presented to [facility] on 01/08/2014 with sub-sternal chest pain in the setting of DKA, blood glucose level ~300 - She recently was admitted on 11/08/13 for DKA as well Plan: - Carb Controlled diet - BMP / Mag / Phos q8 hours - Appreciate endocrinology recs - Per Endo goal blood sugar should be 90-120 before meals - Basal insulin levemir 26 u q 12 hrs - Novolog sliding scale AC/HS: - Accuchecks AC/HS Diabetes mellitus in 12/25/2013 04/16/2014 11/22/2013 04/16/2014 Overview: Recommended she consider inpatient management of her issues --- Reviewed importance of compliance. - Normal growth on ultrasound today. Biophysical profile score is reassuring. - VSD - appears smaller than on last scan - Discussed delivery at 37 weeks in the SDU - Possible risk for RDS in the but higher risks to her and the baby if is prolonged - Earlier delivery if any indications arise --- Follows with Dr. Garcia at [facility] Plan: - Continuous monitoring - F/u [employer] recs GBS (group B Streptococcus c arrier), +RV culture @ 22 wks 11/11/2013 04/16/2014 Hypertension in , antepartum 09/19/2013 01/08/2014 DVT prophylaxis 12/25/2012 09/04/2013 Overview: IPCs DISPOSITION AND FOLLOW-UP 12/25/2012 Overview: Full code Retinal detachment 10/26/2012 3 documented as of this encounter (statuses as of 09/29/2023) [facility] History of Past illness Narrative* Problem Noted Date Diagnosed Date Resolved Date 01/28/2016 03/06/2017 Pre-existing type 1 diabetes mellitus in in first trimester 08/05/2015 10/03/2018 Fluid overload 12/10/2014 12/15/2014 Overview: Postoperative fluid overload A/P: Positive fluid balance. cont diuresis Tachycardia, unspecified 12/10/2014 Overview: Noted to have sinus tachycardia introap and post op A/P: HR improved with BB. Cont BB Anxiety 12/10/2014 12/13/2014 Overview: anxious at times, flat affect shaking legs post op A/p: improving, PRN xanax , resolved DVT prophylaxis 02/25/2014 04/16/2014 Overview: - IPCs care and examination 02/25/2014 04/16/2014 Overview: - Delivered by on 02/25/2014 morning - On fentanyl gtt per [employer] Plan: - [employer] team to round on patient and manage care Diabetic ketoacidosis withou t coma associated with type 1 diabetes mellitus 01/08/2014 02/04/2023 Overview: Type 1 diabetes with poor control, frequent DKA episodes --- Throughout the day she takes insulin to keep sugars 80-150 - Presented to [facility] on 01/08/2014 with sub-sternal chest pain in the setting of DKA, blood glucose level ~300 - She recently was admitted on 11/08/13 for DKA as well Plan: - Carb Controlled diet - BMP / Mag / Phos q8 hours - Appreciate endocrinology recs - Per Endo goal blood sugar should be 90-120 before meals - Basal insulin levemir 26 u q 12 hrs - Novolog sliding scale AC/HS: - Accuchecks AC/HS Diabetes mellitus in 12/25/2013 04/16/2014 11/22/2013 04/16/2014 Overview: Recommended she consider inpatient management of her issues --- Reviewed importance of compliance. - Normal growth on ultrasound today. Biophysical profile score is reassuring. - VSD - appears smaller than on last scan - Discussed delivery at 37 weeks in the SDU - Possible risk for RDS in the but higher risks to her and the baby if is prolonged - Earlier delivery if any indications arise --- Follows with Dr. Garcia at [facility] Plan: - Continuous monitoring - F/u [employer] recs GBS (group B Streptococcus c arrier), +RV culture @ 22 wks 11/11/2013 04/16/2014 Hypertension in , antepartum 09/19/2013 01/08/2014 DVT prophylaxis 12/25/2012 09/04/2013 Overview: IPCs DISPOSITION AND FOLLOW-UP 12/25/2012 Overview: Full code Retinal detachment 10/26/2012 3 documented as of this encounter (statuses as of 10/04/2023) [facility] History of Past illness Narrative* Problem Noted Date Diagnosed Date Resolved Date 01/28/2016 03/06/2017 Pre-existing type 1 diabetes mellitus in in first trimester 08/05/2015 10/03/2018 Fluid overload 12/10/2014 12/15/2014 Overview: Postoperative fluid overload A/P: Positive fluid balance. cont diuresis Tachycardia, unspecified 12/10/2014 Overview: Noted to have sinus tachycardia introap and post op A/P: HR improved with BB. Cont BB Anxiety 12/10/2014 12/13/2014 Overview: anxious at times, flat affect shaking legs post op A/p: improving, PRN xanax , resolved DVT prophylaxis 02/25/2014 04/16/2014 Overview: - IPCs care and examination 02/25/2014 04/16/2014 Overview: - Delivered by on 02/25/2014 morning - On fentanyl gtt per [employer] Plan: - [employer] team to round on patient and manage care Diabetic ketoacidosis withou t coma associated with type 1 diabetes mellitus 01/08/2014 02/04/2023 Overview: Type 1 diabetes with poor control, frequent DKA episodes --- Throughout the day she takes insulin to keep sugars 80-150 - Presented to [facility] on 01/08/2014 with sub-sternal chest pain in the setting of DKA, blood glucose level ~300 - She recently was admitted on 11/08/13 for DKA as well Plan: - Carb Controlled diet - BMP / Mag / Phos q8 hours - Appreciate endocrinology recs - Per Endo goal blood sugar should be 90-120 before meals - Basal insulin levemir 26 u q 12 hrs - Novolog sliding scale AC/HS: - Accuchecks AC/HS Diabetes mellitus in 12/25/2013 04/16/2014 11/22/2013 04/16/2014 Overview: Recommended she consider inpatient management of her issues --- Reviewed importance of compliance. - Normal growth on ultrasound today. Biophysical profile score is reassuring. - VSD - appears smaller than on last scan - Discussed delivery at 37 weeks in the SDU - Possible risk for RDS in the but higher risks to her and the baby if is prolonged - Earlier delivery if any indications arise --- Follows with Dr. Garcia at [facility] Plan: - Continuous monitoring - F/u [employer] recs GBS (group B Streptococcus c gregorio), +RV culture @ 22 wks 11/11/2013 04/16/2014 Hypertension in , antepartum 09/19/2013 01/08/2014 DVT prophylaxis 12/25/2012 09/04/2013 Overview: IPCs DISPOSITION AND FOLLOW-UP 12/25/2012 Overview: Full code Retinal detachment 10/26/2012 3 documented as of this encounter (statuses as of 10/12/2023) [facility] History of Past illness Narrative* Problem Noted Date Diagnosed Date Resolved Date 01/28/2016 03/06/2017 Pre-existing type 1 diabetes mellitus in in first trimester 08/05/2015 10/03/2018 Fluid overload 12/10/2014 12/15/2014 Overview: Postoperative fluid overload A/P: Positive fluid balance. cont diuresis Tachycardia, unspecified 12/10/2014 Overview: Noted to have sinus tachycardia introap and post op A/P: HR improved with BB. Cont BB Anxiety 12/10/2014 12/13/2014 Overview: anxious at times, flat affect shaking legs post op A/p: improving, PRN xanax , resolved DVT prophylaxis 02/25/2014 04/16/2014 Overview: - IPCs care and examination 02/25/2014 04/16/2014 Overview: - Delivered by on 02/25/2014 morning - On fentanyl gtt per [employer] Plan: - [employer] team to round on patient and manage care Diabetic ketoacidosis withou t coma associated with type 1 diabetes mellitus 01/08/2014 02/04/2023 Overview: Type 1 diabetes with poor control, frequent DKA episodes --- Throughout the day she takes insulin to keep sugars 80-150 - Presented to [facility] on 01/08/2014 with sub-sternal chest pain in the setting of DKA, blood glucose level ~300 - She recently was admitted on 11/08/13 for DKA as well Plan: - Carb Controlled diet - BMP / Mag / Phos q8 hours - Appreciate endocrinology recs - Per Endo goal blood sugar should be 90-120 before meals - Basal insulin levemir 26 u q 12 hrs - Novolog sliding scale AC/HS: - Accuchecks AC/HS Diabetes mellitus in 12/25/2013 04/16/2014 11/22/2013 04/16/2014 Overview: Recommended she consider inpatient management of her issues --- Reviewed importance of compliance. - Normal growth on ultrasound today. Biophysical profile score is reassuring. - VSD - appears smaller than on last scan - Discussed delivery at 37 weeks in the SDU - Possible risk for RDS in the but higher risks to her and the baby if is prolonged - Earlier delivery if any indications arise --- Follows with Dr. Garcia at [facility] Plan: - Continuous monitoring - F/u [employer] recs GBS (group B Streptococcus c arrhilary), +RV culture @ 22 wks 11/11/2013 04/16/2014 Hypertension in , antepartum 09/19/2013 01/08/2014 DVT prophylaxis 12/25/2012 09/04/2013 Overview: IPCs DISPOSITION AND FOLLOW-UP 12/25/2012 Overview: Full code Retinal detachment 10/26/2012 3 documented as of this encounter (statuses as of 10/19/2023) [facility] History of Past illness Narrative* Problem Noted Date Diagnosed Date Resolved Date 01/28/2016 03/06/2017 Pre-existing type 1 diabetes mellitus in in first trimester 08/05/2015 10/03/2018 Fluid overload 12/10/2014 12/15/2014 Overview: Postoperative fluid overload A/P: Positive fluid balance. cont diuresis Tachycardia, unspecified 12/10/2014 Overview: Noted to have sinus tachycardia introap and post op A/P: HR improved with BB. Cont BB Anxiety 12/10/2014 12/13/2014 Overview: anxious at times, flat affect shaking legs post op A/p: improving, PRN xanax , resolved DVT prophylaxis 02/25/2014 04/16/2014 Overview: - IPCs care and examination 02/25/2014 04/16/2014 Overview: - Delivered by on 02/25/2014 morning - On fentanyl gtt per [employer] Plan: - [employer] team to round on patient and manage care Diabetic ketoacidosis withou t coma associated with type 1 diabetes mellitus 01/08/2014 02/04/2023 Overview: Type 1 diabetes with poor control, frequent DKA episodes --- Throughout the day she takes insulin to keep sugars 80-150 - Presented to [facility] on 01/08/2014 with sub-sternal chest pain in the setting of DKA, blood glucose level ~300 - She recently was admitted on 11/08/13 for DKA as well Plan: - Carb Controlled diet - BMP / Mag / Phos q8 hours - Appreciate endocrinology recs - Per Endo goal blood sugar should be 90-120 before meals - Basal insulin levemir 26 u q 12 hrs - Novolog sliding scale AC/HS: - Accuchecks AC/HS Diabetes mellitus in 12/25/2013 04/16/2014 11/22/2013 04/16/2014 Overview: Recommended she consider inpatient management of her issues --- Reviewed importance of compliance. - Normal growth on ultrasound today. Biophysical profile score is reassuring. - VSD - appears smaller than on last scan - Discussed delivery at 37 weeks in the SDU - Possible risk for RDS in the but higher risks to her and the baby if is prolonged - Earlier delivery if any indications arise --- Follows with Dr. Garcia at [facility] Plan: - Continuous monitoring - F/u [employer] recs GBS (group B Streptococcus c arrier), +RV culture @ 22 wks 11/11/2013 04/16/2014 Hypertension in , antepartum 09/19/2013 01/08/2014 DVT prophylaxis 12/25/2012 09/04/2013 Overview: IPCs DISPOSITION AND FOLLOW-UP 12/25/2012 Overview: Full code Retinal detachment 10/26/2012 3 documented as of this encounter (statuses as of 10/20/2023) [facility] History of Past illness Narrative* Problem Noted Date Diagnosed Date Resolved Date 01/28/2016 03/06/2017 Pre-existing type 1 diabetes mellitus in in first trimester 08/05/2015 10/03/2018 Fluid overload 12/10/2014 12/15/2014 Overview: Postoperative fluid overload A/P: Positive fluid balance. cont diuresis Tachycardia, unspecified 12/10/2014 Overview: Noted to have sinus tachycardia introap and post op A/P: HR improved with BB. Cont BB Anxiety 12/10/2014 12/13/2014 Overview: anxious at times, flat affect shaking legs post op A/p: improving, PRN xanax , resolved DVT prophylaxis 02/25/2014 04/16/2014 Overview: - IPCs care and examination 02/25/2014 04/16/2014 Overview: - Delivered by on 02/25/2014 morning - On fentanyl gtt per [employer] Plan: - [employer] team to round on patient and manage care Diabetic ketoacidosis withou t coma associated with type 1 diabetes mellitus 01/08/2014 02/04/2023 Overview: Type 1 diabetes with poor control, frequent DKA episodes --- Throughout the day she takes insulin to keep sugars 80-150 - Presented to [facility] on 01/08/2014 with sub-sternal chest pain in the setting of DKA, blood glucose level ~300 - She recently was admitted on 11/08/13 for DKA as well Plan: - Carb Controlled diet - BMP / Mag / Phos q8 hours - Appreciate endocrinology recs - Per Endo goal blood sugar should be 90-120 before meals - Basal insulin levemir 26 u q 12 hrs - Novolog sliding scale AC/HS: - Accuchecks AC/HS Diabetes mellitus in 12/25/2013 04/16/2014 11/22/2013 04/16/2014 Overview: Recommended she consider inpatient management of her issues --- Reviewed importance of compliance. - Normal growth on ultrasound today. Biophysical profile score is reassuring. - VSD - appears smaller than on last scan - Discussed delivery at 37 weeks in the SDU - Possible risk for RDS in the but higher risks to her and the baby if is prolonged - Earlier delivery if any indications arise --- Follows with Dr. Garcia at [facility] Plan: - Continuous monitoring - F/u [employer] recs GBS (group B Streptococcus c arrier), +RV culture @ 22 wks 11/11/2013 04/16/2014 Hypertension in , antepartum 09/19/2013 01/08/2014 DVT prophylaxis 12/25/2012 09/04/2013 Overview: IPCs DISPOSITION AND FOLLOW-UP 12/25/2012 Overview: Full code Retinal detachment 10/26/2012 3 documented as of this encounter (statuses as of 10/27/2023) [facility] History of Past illness Narrative* Problem Noted Date Diagnosed Date Resolved Date 01/28/2016 03/06/2017 Pre-existing type 1 diabetes mellitus in in first trimester 08/05/2015 10/03/2018 Fluid overload 12/10/2014 12/15/2014 Overview: Postoperative fluid overload A/P: Positive fluid balance. cont diuresis Tachycardia, unspecified 12/10/2014 Overview: Noted to have sinus tachycardia introap and post op A/P: HR improved with BB. Cont BB Anxiety 12/10/2014 12/13/2014 Overview: anxious at times, flat affect shaking legs post op A/p: improving, PRN xanax , resolved DVT prophylaxis 02/25/2014 04/16/2014 Overview: - IPCs care and examination 02/25/2014 04/16/2014 Overview: - Delivered by on 02/25/2014 morning - On fentanyl gtt per [employer] Plan: - [employer] team to round on patient and manage care Diabetic ketoacidosis withou t coma associated with type 1 diabetes mellitus 01/08/2014 02/04/2023 Overview: Type 1 diabetes with poor control, frequent DKA episodes --- Throughout the day she takes insulin to keep sugars 80-150 - Presented to [facility] on 01/08/2014 with sub-sternal chest pain in the setting of DKA, blood glucose level ~300 - She recently was admitted on 11/08/13 for DKA as well Plan: - Carb Controlled diet - BMP / Mag / Phos q8 hours - Appreciate endocrinology recs - Per Endo goal blood sugar should be 90-120 before meals - Basal insulin levemir 26 u q 12 hrs - Novolog sliding scale AC/HS: - Accuchecks AC/HS Diabetes mellitus in 12/25/2013 04/16/2014 11/22/2013 04/16/2014 Overview: Recommended she consider inpatient management of her issues --- Reviewed importance of compliance. - Normal growth on ultrasound today. Biophysical profile score is reassuring. - VSD - appears smaller than on last scan - Discussed delivery at 37 weeks in the SDU - Possible risk for RDS in the but higher risks to her and the baby if is prolonged - Earlier delivery if any indications arise --- Follows with Dr. Garcia at [facility] Plan: - Continuous monitoring - F/u [employer] recs GBS (group B Streptococcus c arrier), +RV culture @ 22 wks 11/11/2013 04/16/2014 Hypertension in , antepartum 09/19/2013 01/08/2014 DVT prophylaxis 12/25/2012 09/04/2013 Overview: IPCs DISPOSITION AND FOLLOW-UP 12/25/2012 Overview: Full code Retinal detachment 10/26/2012 3 documented as of this encounter (statuses as of 11/03/2023) [facility] History of Past illness Narrative* Problem Noted Date Diagnosed Date Resolved Date 01/28/2016 03/06/2017 Pre-existing type 1 diabetes mellitus in in first trimester 08/05/2015 10/03/2018 Fluid overload 12/10/2014 12/15/2014 Overview: Postoperative fluid overload A/P: Positive fluid balance. cont diuresis Tachycardia, unspecified 12/10/2014 Overview: Noted to have sinus tachycardia introap and post op A/P: HR improved with BB. Cont BB Anxiety 12/10/2014 12/13/2014 Overview: anxious at times, flat affect shaking legs post op A/p: improving, PRN xanax , resolved DVT prophylaxis 02/25/2014 04/16/2014 Overview: - IPCs care and examination 02/25/2014 04/16/2014 Overview: - Delivered by on 02/25/2014 morning - On fentanyl gtt per [employer] Plan: - [employer] team to round on patient and manage care Diabetic ketoacidosis withou t coma associated with type 1 diabetes mellitus 01/08/2014 02/04/2023 Overview: Type 1 diabetes with poor control, frequent DKA episodes --- Throughout the day she takes insulin to keep sugars 80-150 - Presented to [facility] on 01/08/2014 with sub-sternal chest pain in the setting of DKA, blood glucose level ~300 - She recently was admitted on 11/08/13 for DKA as well Plan: - Carb Controlled diet - BMP / Mag / Phos q8 hours - Appreciate endocrinology recs - Per Endo goal blood sugar should be 90-120 before meals - Basal insulin levemir 26 u q 12 hrs - Novolog sliding scale AC/HS: - Accuchecks AC/HS Diabetes mellitus in 12/25/2013 04/16/2014 11/22/2013 04/16/2014 Overview: Recommended she consider inpatient management of her issues --- Reviewed importance of compliance. - Normal growth on ultrasound today. Biophysical profile score is reassuring. - VSD - appears smaller than on last scan - Discussed delivery at 37 weeks in the SDU - Possible risk for RDS in the but higher risks to her and the baby if is prolonged - Earlier delivery if any indications arise --- Follows with Dr. Garcia at [facility] Plan: - Continuous monitoring - F/u [employer] recs GBS (group B Streptococcus c arrier), +RV culture @ 22 wks 11/11/2013 04/16/2014 Hypertension in , antepartum 09/19/2013 01/08/2014 DVT prophylaxis 12/25/2012 09/04/2013 Overview: IPCs DISPOSITION AND FOLLOW-UP 12/25/2012 Overview: Full code Retinal detachment 10/26/2012 3 documented as of this encounter (statuses as of 11/10/2023) [facility] History of Past illness Narrative* Problem Noted Date Diagnosed Date Resolved Date 01/28/2016 03/06/2017 Pre-existing type 1 diabetes mellitus in in first trimester 08/05/2015 10/03/2018 Fluid overload 12/10/2014 12/15/2014 Overview: Postoperative fluid overload A/P: Positive fluid balance. cont diuresis Tachycardia, unspecified 12/10/2014 Overview: Noted to have sinus tachycardia introap and post op A/P: HR improved with BB. Cont BB Anxiety 12/10/2014 12/13/2014 Overview: anxious at times, flat affect shaking legs post op A/p: improving, PRN xanax , resolved DVT prophylaxis 02/25/2014 04/16/2014 Overview: - IPCs care and examination 02/25/2014 04/16/2014 Overview: - Delivered by on 02/25/2014 morning - On fentanyl gtt per [facility] Plan: - [facility] team to round on patient and manage care Diabetic ketoacidosis withou t coma associated with type 1 diabetes mellitus 01/08/2014 02/04/2023 Overview: Type 1 diabetes with poor control, frequent DKA episodes --- Throughout the day she takes insulin to keep sugars 80-150 - Presented to [facility] on 01/08/2014 with sub-sternal chest pain in the setting of DKA, blood glucose level ~300 - She recently was admitted on 11/08/13 for DKA as well Plan: - Carb Controlled diet - BMP / Mag / Phos q8 hours - Appreciate endocrinology recs - Per Endo goal blood sugar should be 90-120 before meals - Basal insulin levemir 26 u q 12 hrs - Novolog sliding scale AC/HS: - Accuchecks AC/HS Diabetes mellitus in 12/25/2013 04/16/2014 11/22/2013 04/16/2014 Overview: Recommended she consider inpatient management of her issues --- Reviewed importance of compliance. - Normal growth on ultrasound today. Biophysical profile score is reassuring. - VSD - appears smaller than on last scan - Discussed delivery at 37 weeks in the SDU - Possible risk for RDS in the but higher risks to her and the baby if is prolonged - Earlier delivery if any indications arise --- Follows with Dr. Garcia at [facility] Plan: - Continuous monitoring - F/u [facility] recs GBS (group B Streptococcus c arrier), +RV culture @ 22 wks 11/11/2013 04/16/2014 Hypertension in , antepartum 09/19/2013 01/08/2014 DVT prophylaxis 12/25/2012 09/04/2013 Overview: IPCs DISPOSITION AND FOLLOW-UP 12/25/2012 Overview: Full code Retinal detachment 10/26/2012 3 documented as of this encounter (statuses as of 12/14/2023) [facility] History of Past illness Narrative* Problem Noted Date Diagnosed Date Resolved Date 01/28/2016 03/06/2017 Pre-existing type 1 diabetes mellitus in in first trimester 08/05/2015 10/03/2018 Fluid overload 12/10/2014 12/15/2014 Overview: Postoperative fluid overload A/P: Positive fluid balance. cont diuresis Tachycardia, unspecified 12/10/2014 Overview: Noted to have sinus tachycardia introap and post op A/P: HR improved with BB. Cont BB Anxiety 12/10/2014 12/13/2014 Overview: anxious at times, flat affect shaking legs post op A/p: improving, PRN xanax , resolved DVT prophylaxis 02/25/2014 04/16/2014 Overview: - IPCs care and examination 02/25/2014 04/16/2014 Overview: - Delivered by on 02/25/2014 morning - On fentanyl gtt per [facility] Plan: - [facility] team to round on patient and manage care Diabetic ketoacidosis withou t coma associated with type 1 diabetes mellitus 01/08/2014 02/04/2023 Overview: Type 1 diabetes with poor control, frequent DKA episodes --- Throughout the day she takes insulin to keep sugars 80-150 - Presented to [facility] on 01/08/2014 with sub-sternal chest pain in the setting of DKA, blood glucose level ~300 - She recently was admitted on 11/08/13 for DKA as well Plan: - Carb Controlled diet - BMP / Mag / Phos q8 hours - Appreciate endocrinology recs - Per Endo goal blood sugar should be 90-120 before meals - Basal insulin levemir 26 u q 12 hrs - Novolog sliding scale AC/HS: - Accuchecks AC/HS Diabetes mellitus in 12/25/2013 04/16/2014 11/22/2013 04/16/2014 Overview: Recommended she consider inpatient management of her issues --- Reviewed importance of compliance. - Normal growth on ultrasound today. Biophysical profile score is reassuring. - VSD - appears smaller than on last scan - Discussed delivery at 37 weeks in the SDU - Possible risk for RDS in the but higher risks to her and the baby if is prolonged - Earlier delivery if any indications arise --- Follows with Dr. Garcia at [facility] Plan: - Continuous monitoring - F/u [facility] [employer] [facility] recs GBS (group B Streptococcus c arrier), +RV culture @ 22 wks 11/11/2013 04/16/2014 Hypertension in , antepartum 09/19/2013 01/08/2014 DVT prophylaxis 12/25/2012 09/04/2013 Overview: IPCs DISPOSITION AND FOLLOW-UP 12/25/2012 Overview: Full code Retinal detachment 10/26/2012 3 documented as of this encounter (statuses as of 12/15/2023) [facility] Cynthia [facility]ison [facility] October 18, 2023 11:21am Note Date/Time October 18, 2023 11:21am [facility] Medical Records Department [address] [place] [address] Counseling Note - Pharmacy 10/18/23 1121 MR#: [id number] Acct: [id number] Name: KATHLEEN VILLA Rep #:[id number] : 1995 28 From: Cynthia Hutchison PCP: FUNMILAYO SMITH Status:ADM IN Y Location: ICU CVICU20 2-1 Pharmacy [place] Med Reconciliation Pharmacy Service has performed discharge medication reconciliation for this patient. The patient's discharge medication list was reviewed for discrepancies and discrepancies were resolved. Medications at Discharge Home Medications insulin lispro 100 unit/mL subcutaneous solution (Humalog U-100 Insulin) See Rx Instructions .Route .COMPLEX 04/27/23 pen needle, diabetic 29 gauge x 1/2 (Ultra-Thin II Insulin Pen [place]) #100 ea08/10/23 prochlorperazine maleate 10 mg tablet (Compazine) 10 mg PO TID PRN nausea and vomiting #20 tabs 09/25/23 10/18/23 1121 <Electronically signed by Cynthia Hutchison> Date _ Cynthia Hutchison Cosigner Signature (if applicable): Date CC: ~ Signed [facility] Work Phone: Discharge summary Author Ileana Lobo [facility] April 29, 2023 5:54pm Note Date/Time April 29, 2023 5:45pm [facility] Medical Records Department [address] [place] [address] Instructions for Home/Discharge Instructions 04/29/23 1744 MR#: [id number] Acct: [id number] Name: KATHLEEN VILLA Rep #:[id number] : 1995 27 From: Ileana Lobo MD PCP: Care Physician,No Primary Status :ADM LEROY Discharge Instructions Diet Discharge Diet: Light diet - advance as tolerated Activity Discharge Activity: Return to Normal Activity Follow Up Care Test Results: Test results from this visit will be discussed in further detail at your follow- up appointment, if applicable. Discharge Plan Admission Admit Date/Time: 04/27/23 15:53 Primary Reason for Your Visit: Nausea and vomiting Attending Provider: Ileana Lobo Primary Care Provider: Care Physician,No Primary Consulting Providers: David Smith Instructions Patient Instructions: ED Cyclic Vomiting Syndrome Additional Instructions / Restrictions: DISCHARGE INSTRUCTIONS PLEASE READ *Please take this with you to your next doctors appointment* -You recently finished a prescription for Bactrim, your repeat urine culture wasnormal and you will not be discharged on any further antibiotics -You will be discharged on 40 mg of Protonix daily to help with any reflux component and scopolamine patches will be sent to your pharmacy -It is strongly advised that you avoid any marijuana as this will worsen your problem over time and can contribute to further episodes even if it temporarily seems to help with nausea -Continue to closely monitor blood glucose, if you have any questions please contact your prescribing physician -Please call your primary care provider's office upon discharge to schedule a hospital follow up within 1 week. -If you do not have a primary care physician of list of local primary care physicians can be provided for you upon discharge. Please ask for this list prior to discharge -For any concerning signs or symptoms please call 911 or proceed to the nearest emergency department Discharge Orders/Prescriptions Prescriptions: New scopolamine base 1 mg over 3 days Patch 3 Day 1 patch transdermal Q3D Qty: 3 0RF pantoprazole [Protonix] 40 mg tablet,delayed release (DR/EC) 40 mg PO DAILY Qty: 30 0RF Continued sulfamethoxazole-trimethoprim 800-160 mg tablet 1 tab PO BID Qty: 6 0RF sucralfate 1 gram tablet 1 g PO ACHS PRN (Reason: STOMACH) Skyrizi 150 mg/mL syringe 150 mg subcut Q84D insulin lispro [Humalog U-100 Insulin] 100 unit/mL solution See Rx Instructions .ROUTE .COMPLEX Patient Comments: use IN THE INSULIN PUMP FOR A TOTAL DAILY DOSE OF 100 UNITS Rx Instructions: 100U VIA PUMP DAILY; Referrals / Follow Up: Care Physician,No Primary [Primary Care Provider] - ( -If you do not have a primary care physician of list of local primary care physicians can be provided for you upon discharge. Please ask for this list prior to discharge) Disposition Disposition (needs filled in before D/C Order can be placed): Home, Self Care 04/29/231753<Electronically signed by Ileana Lobo MD>Ileana Lobo MD CC: Dr. David Smith MD; No Primary Care Physician ~ Signed [facility] Work Phone: Discharge summary Author Alexandro Garces [facility] October 17, 2023 11:38am Note Date/Time October 17, 2023 11:24am [facility] Medical Records Department [address] [place] [address] Emergency Department Summary 10/17/23 MR#: [id number] Acct: [id number] Name: KATHLEEN VILLA Rep #:[id number] : 1995 28 From: Alexandro Garces MD PCP: FUNMILAYO SMITH Status:REG ER Location: ED HPI <Jacqueline Alvarez RN - Last Filed: 10/17/23 11:31> History of Present Illness Chief Complaint: Hyperglycemia Detail of Chief Complaint: High blood sugar at home this morning Informant: patient Onset/Context/Timing Onset: Today Timing: Continuous Associated Symptoms Associated Symptoms: Nausea, vomiting, abdominal pain Narrative Narrative: Patient presents to the ED with complaints of increased nausea beginning beginning 10/13/2019 in the evening. Patient reports she vomited once on 10/14/2023. Vomited 4-5 times this morning with the last episode containing bile. Patient reports being able to continue to drink water. Patient also reports increased lower abdominal pain beginning last night which she attributedto a gastroparesis attack. Patient describes a squeezing in the mid abdomen. Indicates she has chronic abdominal pain. She currently rates this pain a 8/10 with her baseline being 6/10. No aggravating or relieving factors. Patient reports feeling as if she is constipated. Reports small soft bowel movements with the last one being yesterday. Patient also reports her blood glucose at home was 556 this morning. Reports she averages approximately 100-110 over the last week. She reports increased thirst and increased urination. Patient also reports increased chest pain that she describes as a sharp ache worse with her vomiting. Rates as 7/10 with her baseline intermittent chest pain being 5/10. Patient reports trying Compazine on 10/15/2023 Phenergan on 10/16/2023 in the evening without relief. Patient indicates her last admission for DKA was withinthe last few months. Patient also reports last episode of gastroparesis was 08/21/2023. Prior similar symptoms: Yes Recent Illness/Hospitalization: No PFSH <Jacqueline Alvarez RN - Last Filed: 10/17/23 11:31> PFSH Medical History Anxiety Borderline personality disorder Depression Diabetic gastroparesis Gastroparesis History of tachycardia Intractable vomiting Kidney disease Kidney stones Marfan syndrome PTSD (post-traumatic stress disorder) Smoker Substance abuse Type 1 diabetes Type 1 diabetes Home Medications insulin lispro 100 unit/mL subcutaneous solution (Humalog U-100 Insulin) See Rx Instructions .Route .COMPLEX 04/27/23 [History Last Taken 09/20/23] pen needle, diabetic 29 gauge x 1/2 (Ultra-Thin II Insulin Pen [place]) #100 ea08/10/23 [Rx Last Taken Unknown] ibuprofen 600 mg tablet 600 mg PO Q6H PRN PRN pain #20 TABLETS 09/25/23 [Rx Last Taken Unknown] oseltamivir 75 mg capsule (Tamiflu) 75 mg PO BID 5 days #10 caps 09/25/23 [Rx Last Taken Unknown] prochlorperazine maleate 10 mg tablet (Compazine) 10 mg PO TID PRN nausea and vomiting #20 tabs 09/25/23 [Rx Last Taken Unknown] Allergy/AdvReac Type Severity Reaction Status Date / Time adhesive tape Allergy Intermediate Rash Verified 10/17/23 09:57 cephalexin [From Keflex] Allergy Intermediate Other Verified 10/17/23 09:57 morphine Allergy Intermediate Rash Verified 10/17/23 09:57 oxycodone [From Percocet] Allergy Intermediate Rash Verified 10/17/23 09:57 ondansetron AdvReac I BLACK Verified 10/17/23 09:57 OUT AND LOSE CONTROL OF MY BLADDER Surgical History H/O aortic root repair History of loop recorder Hx of appendectomy Hx of eye surgery Social History Smoking Status: Current some day smoker tobacco type: e-cigarettes substance use type: marijuana ROS <Jacqueline Alvarez RN - Last Filed: 10/17/23 11:31> ROS ED Constitutional Constitutional ED: Reports chills; Denies fever(s) or sweats Eyes Eyes: Denies blurry vision ENT ENT ED: Denies sore throat Cardiovascular Cardiovascular: Reports chest pain; Denies palpitations or racing heartbeat Respiratory/Chest Respiratory/Chest: Denies cough or dyspnea Gastrointestinal Gastrointestinal: Reports abdominal pain, constipation, nausea and vomiting Genitourinary Genitourinary ED: Reports dysuria and urinary frequency Musculoskeletal Musculoskeletal: Reports arthralgias; Denies myalgias Neurologic Neurologic: Reports weakness; Denies headache(s) Hematologic/Lymphatic Hematologic/Lymphatic: Reports systems reviewed and no addt'l complaints, exceptas documented EXAM <Jacqueline Alvarez RN - Last Filed: 10/17/23 11:31> Physical Exam Const Vital Signs: 10/17/23 09:57 10/17/23 10:02 10/17/23 10:02 Temperature 98.2 F Temperature Source Oral Pulse Rate 138 H 142 H Respiratory Rate 18 Respiratory Effort Normal Respiratory Pattern Normal Blood Pressure 149/124 H Blood Pressure Mean 132 Pulse Ox 96 Oxygen Delivery Method Room Air Positive well nourished and well developed General Appearance ED: well developed HEENT Reports moist mucous membranes Eyes PERRL Neck no lymphadenopathy Chest Wall inspection of chest normal and palpation of chest normal Resp normal respiratory effort and clear to auscultation bilaterally Cardio regular rhythm, S1 normal heart sound, S2 normal heart sound and no murmurs Rate: tachycardic GI Auscultation: normoactive bowel sounds Palpation: soft and tender LLQ, RLQ, LUQ and RUQ Extremity normal to inspection General Extremety ED: Negative for edema or tenderness General Extremity: Negative for edema Neuro oriented x3 Sensorium / Orientation: alert Psych mental status grossly normal Skin no rashes or lesions noted <Dr. Alexandro Garces MD - Last Filed: 10/17/23 11:38> Physical Exam Const Vital Signs: 10/17/23 09:57 10/17/23 10:02 10/17/23 10:02 Temperature 98.2 F Temperature Source Oral Pulse Rate 138 H 142 H Respiratory Rate 18 Respiratory Effort Normal Respiratory Pattern Normal Blood Pressure 149/124 H Blood Pressure Mean 132 Pulse Ox 96 Oxygen Delivery Method Room Air MDM <Jacqueline Alvarez RN - Last Filed: 10/17/23 11:31> MDM MDM Narrative Medical decision making narrative: Patient placed on monitoring and evaluation advisor. IV line initiated. Labwork obtained to evaluate for leukocytosis, anemia, and electrolyte derangement. Normal saline ordered due to vomiting. Reglan ordered due to vomiting. History & Record Review Discussion w/independent historian: Patient Additional record(s) reviewed:: Prior inpatient record Lab Data Attestation: I reviewed the patient's lab results. Labs: Laboratory Results - last 24 hr 10/17/23 10:35 WBC 13.6 H RBC 4.71 Hgb 13.6 Hct 42.5 MCV 90.2 MCH 28.9 MCHC 32.0 RDW Std Deviation 43.1 RDW Coeff of Joyce 13.1 Plt Count 138 L MPV 12.2 H Immature Gran % (Auto) 0.900 Neut % (Auto) 88.4 H Lymph % (Auto) 7.8 L Mclean % (Auto) 2.4 Eos % (Auto) 0.1 Baso % (Auto) 0.4 Absolute Neuts (auto) 12.0 H Absolute Lymphs (auto) 1.06 Nucleated RBC % 0 Sodium 132 L Potassium 4.8 Chloride 98 Carbon Dioxide 16.0 L Anion Gap 18 H BUN 22 H Creatinine 1.18 H Estim Creat Clear Calc 73.52 Est GFR (MDRD) Af Amer 70 Est GFR (MDRD) Non-Af 58 L BUN/Creatinine Ratio 18.6 Glucose 534 H* Calcium 9.1 Acetone Level MODERATE H EKG Initial EKG: Attestation: I personally reviewed and interpreted this EKG as follows: Interpretation: Sinus Tachycardia Comments: Sinus tachycardia with heart rate 121. No dysrhythmias or ischemia noted. Prior EKG tracings: not available for review Differential Diagnosis Differential Diagnosis: DKA Differential Diagnosis: Gastroparesis Management Discussion w/another healthcare provider: Other (Dr. Garces, ED provider) Treatment and Re-Evaluation :: Complete blood count shows white blood cells 13.6 with neutrophils 88.4%. Hemoglobin 13.6. Chemistries show hyponatremia at 132. Potassium normal at 4.8. Carbon dioxide low at 16. BUN 22 and creatinine 1.18. Anion gap 18 and glucose 534. Serum acetone is moderate. Patient initially given 1 L normal saline. Lab work reveals patient is in DKA. Additional liter normal saline ordered as well as an insulin drip. Upon reevaluation, patient appears to be resting more comfortably in bed. Heartrate 91 sinus rhythm. Patient aware she is in DKA. Asked to remove insulin pump which patient did. Patient aware of plan for admission. Dr. Garces discussed case with hospitalist. <Dr. Alexandro Garces MD - Last Filed: 10/17/23 11:38> [employer] Narrative Medical decision making narrative: Patient placed on monitoring and evaluation advisor. IV line initiated. Labwork obtained to evaluate for leukocytosis, anemia, and electrolyte derangement. Normal saline ordered due to vomiting. Reglan ordered due to vomiting. I have personally performed a face to face assessment of the patient and have reviewed the ASHLY Note. I performed a substantive portion of the visit including all aspects of the following. My herrera findings include: History is [28-year-old female history of diabetes with insulin pump. Has not felt well the last 2 days with nausea and vomiting today. History of prior DKA. No dysuria. No fever.] Exam is [27-year-old female vital signs stable initial blood pressure elevated 149/124. Tachycardic 140. Afebrile. H EENT exam dry mucous membranes. Pupils round reactive light extra motions are intact. No droop. Normal speech. Neck nontender no lymphadenopathy. Lungs clear to auscultation bilaterally. Heart tachycardic no murmur. Chest wall nontender. Abdomen soft nontender. No peritoneal signs. No distention. Moving all 4 extremities. Nontender no edema. No erythema. Neurologically patient is awake and alert with no focal motor deficits. Answering questions and following commands.] Medical Decision Making [28-year-old female with concern for DKA. Screening labs. IV fluids. Once the labs returned the patient is written for second liter normal saline and an insulin drip. I spoke to the hospitalist about admission to the ICU for DKA.] Other additions or changes: [None] Lab Data Lab results narrative: CBC shows a white count of 13.6. Patient often has elevated white counts between 16 and 22,000. H&H 13 and 42. Platelets 138. Electrolytes show sodium 132. Gap 18. BUN 22 creatinine 1.18 consistent with mild dehydration. Glucose 534. Acetone level moderate. Labs are consistent with DKA and dehydration. IV fluids and insulin drip. Labs: Laboratory Results - last 24 hr 10/17/23 10:35 WBC 13.6 H RBC 4.71 Hgb 13.6 Hct 42.5 MCV 90.2 MCH 28.9 MCHC 32.0 RDW Std Deviation 43.1 RDW Coeff of Joyce 13.1 Plt Count 138 L MPV 12.2 H Immature Gran % (Auto) 0.900 Neut % (Auto) 88.4 H Lymph % (Auto) 7.8 L Mclean % (Auto) 2.4 Eos % (Auto) 0.1 Baso % (Auto) 0.4 Absolute Neuts (auto) 12.0 H Absolute Lymphs (auto) 1.06 Nucleated RBC % 0 Sodium 132 L Potassium 4.8 Chloride 98 Carbon Dioxide 16.0 L Anion Gap 18 H BUN 22 H Creatinine 1.18 H Estim Creat Clear Calc 73.52 Est GFR (MDRD) Af Amer 70 Est GFR (MDRD) Non-Af 58 L BUN/Creatinine Ratio 18.6 Glucose 534 H* Calcium 9.1 Acetone Level MODERATE H Rhythm Strip Rhythm Strip: Sinus Tach Rate: 121 Ectopy: None <Dr. Alexandro Garces MD - Last Filed: 10/17/23 11:38> Critical Care Time Critical Care Time: Yes Critical care time (excluding procedures): 30-74 minutes, Including time spent:, Discussing w/Patient &/or Family/Chair Springer, Discussing w/Consultants, Arranging Admission or Transfer, Performing Direct Patient Care at Bedside and - (35 minutes) Discharge Plan Dx/Rx/DC Orders Clinical Impression: DKA (diabetic ketoacidosis), Tachycardia, Nausea & vomiting, Acute dehydration Disposition Disposition: [facility] What to do if you have Problems For any increased pain, shortness of breath, bleeding, nausea or vomiting, chest pain, or any unexpected problems, contact your Primary Care Provider. Call [facility] ([phone]) or report to the closest Emergency Room. Call 911 if necessary. 10/17/23 1138 <Electronically signed by Alexandro Garces MD> Cosigner Signature (if applicable): 10/17/23 1131 <Electronically signed by Jacqueline Alvarez RN> CC: FUNMILAYO SMITH ~ Signed [facility] Work Phone: Discharge summary Author [facility]ita [facility] October 18, 2023 10:54am Note Date/Time October 18, 2023 10:54am [facility] Medical Records Department [address] [place] [address] Instructions for Home/Discharge Instructions 10/18/23 1054 MR#: [id number] Acct: [id number] Name: KATHLEEN VILLA Rep #:[id number] : 1995 28 From: Vita Jefferson MD PCP: FUNMILAYO SMITH Status:ADM IN Discharge Instructions Diet Discharge Diet: Low fat / Low cholesterol Activity Discharge Activity: Return to Normal Activity Weight Bearing Status: Weight bearing as tolerated Dressing / Incision Call your doctor if you observe: Fever of 101 or Higher, Shortness of breath, Dizziness, Swelling in the ankles and Chest pain Follow Up Care Test Results: Test results from this visit will be discussed in further detail at your follow- up appointment, if applicable. Discharge Plan Admission Admit Date/Time: 10/17/23 11:28 Primary Reason for Your Visit: DKA Attending Provider: Vita Jefferson Primary Care Provider: FUNMILAYO SMITH Instructions Patient Instructions: Ketoacidosis Ch Additional Instructions / Restrictions: follow up with your steward dishwasher and commercial decorator SIRI. Discharge Orders/Prescriptions Prescriptions: Continued insulin lispro [Humalog U-100 Insulin] 100 unit/mL solution See Rx Instructions .ROUTE .COMPLEX Patient Comments: use IN THE INSULIN PUMP FOR A TOTAL DAILY DOSE OF 100 UNITS Rx Instructions: 100 U VIA PUMP DAILY; BASAL RATE - 1.8 UNITS/HOUR BOLUS: CARB RATIO- 1 UNIT /10 GRAMS OF CARBS CORRECTION- 1 UNIT FOR EVERY 30MG/DL BLOOD GLUCOSE OVER 120 (DME) pen needle, diabetic [Ultra-Thin II Ins Pen [place]] 29 gauge x 1/2 needle See Rx Instructions .Route Qty: 100 0RF Rx Instructions: As directed prochlorperazine maleate [Compazine] 10 mg tablet 10 mg PO TID PRN (Reason: nausea and vomiting) Qty: 20 0RF Referrals / Follow Up: FUNMILAYO SMITH [Other] - Within 1 Week FUNMILAYO SMITH [Other] Disposition Disposition (needs filled in before D/C Order can be placed): Home, Self Care 10/18/23 1054<Electronically signed by Vita Jefferson MD>Vita Jefferson MD CC: FUNMILAYO SMITH ~ Signed [facility] Work Phone: Discharge summary Author Vita [facility] October 18, 2023 11:09am Note Date/Time October 18, 2023 10:58am [facility] Medical Records Department [address] [place] [address] Discharge Summary 10/18/23 1054 MR#: [id number] Acct: [id number] Name: KATHLEEN VILLA Rep #:[id number] : 1995 28 From: Vita Jefferson MD PCP: FUNMILAYO SMITH Status:ADM IN Location: ICU CVICU20 2-1 Providers Date of Admission: 10/17/23 Date of Discharge: 10/18/23 Primary Care Physician: FUNMILAYO SMITH Reason For Visit: DKA Diagnosis Discharge Diagnosis (1) Nausea & vomiting: Status: Acute Code(s): R11.2 - Nausea with vomiting, unspecified (2) DKA (diabetic ketoacidosis): Status: Acute Code(s): E11.10 - Type 2 diabetes mellitus with ketoacidosis without coma Plan #DKA in the setting of type 1 diabetes * blood sugar was >500 * anion gap was 18 and bicarb was 16. * admit to ICU * start on insulin drip; check BMP q4hrly * continue insulin drip until anion gap closes x 2, and then switch to her insulin pump * patient says she has been compliant with her insulin pump and diet, and her last A1C was 6.7. * follows up with an steward dishwasher in [facility] in [place]. * last A1C from 08/07/2023 was 7 * #Gastroparesis in the setting of type 1 diabetes mellitus * on compazine. Add on phenergan prn * will benefit from metoclorpromide if nausea persists. * #Hypotension * BP is down in the 90s systolic. * will hydrate with IVF and trend. * DVT prpphylaxis: lovenox. Medications at Discharge Home Medications insulin lispro 100 unit/mL subcutaneous solution (Humalog U-100 Insulin) See Rx Instructions .Route .COMPLEX 04/27/23 pen needle, diabetic 29 gauge x 1/2 (Ultra-Thin II Insulin Pen [place]) #100 ea08/10/23 prochlorperazine maleate 10 mg tablet (Compazine) 10 mg PO TID PRN nausea and vomiting #20 tabs 09/25/23 Hospital Course Operations None Procedures None Summary of Care Provided Minutes Spent on Discharge: 55 Hospital Course: KATHLEEN VILLA, is a 28 F with a PMH as outlined who presents via the ED on 10/17/2023 with a complaint of hyperglycemia. She is a known type 1 diabetic. Shehas not been feeling well for the past few days. She admitted to nausea and vomiting but denied any fever or chills or any other symptoms. Review of systemsis otherwise negative. Had A1c in EMR from July 2023 was 7, and per patient, her last A1C with her steward dishwasher was 6.7. She had however had recurrent DKA. Vitals in the ED were temperature of 98.2 with heart rate of 142 and blood pressure of 149/124. Respirate rate was 18. She was saturating at 96% on room air. CBC showed WBC of 13.6 with hemoglobin of 13.6 and platelets of 158. Chemistry shows sodium of 152 with anion gap of 18 and creatinine of 1.18. Bicarb was 16. Glucose was 534. Serum acetone level was moderate. She was admitted to be managed for DKA and an known type I diabetic. SHe was admitted tothe ICU and started on insulin drip. Her DKA resolved and gap closed x 2. She was placed on her insulin pump. She was also placed on a diet which she tolerated. She remained stable and was discharged home on 10/18/2023. 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 Patient seen and examined prior to discharge. She had no active complaints and had an uneventful night. Review of systems is otherwise negative. Labs and vitals reviewed. Home meds reviewed and reconciled. Physical Exam Const alert, oriented x3 and no apparent distress General Appearance: cooperative and comfortable Orientation / Consciousness: awake HEENT normocephalic, head/scalp atraumatic, hearing grossly normal bilaterally and moist oral mucous membranes Mouth: oral and palatal mucosa normal Eyes PERRL and EOMs intact bilaterally Neck no lymphadenopathy, supple and no JVD Lymph Lymphatic: no lymphadenopathy noted and no lymphedema noted Resp normal respiratory effort, normal air movement and clear to auscultation bilaterally Cardio regular rate, regular rhythm, S1 normal heart sound, S2 normal heart sound and no murmurs GI normal to inspection, nondistended, normoactive bowel sounds, soft to palpation,non-tender and non-distended Extremity normal to inspection, full ROM, normal capillary refill, no clubbing, cyanosis or edema and no calf tenderness Skin no rashes or lesions noted General Skin Exam: no breakdown and turgor normal Neuro oriented x3, CN's II-XII intact bilaterally, moves all extremities and no focal motor deficits Motor Exam: strength 5/5 throughout and general weakness Psych thought process normal and cooperative Appearance: appropriate Weight / BMI Weight Weight: 166 lb 10.711 oz Body Mass Index (BMI) 24.6 ABG / Lab / Microbiology Data 10/18/23 04:45 10/18/23 04:45 Laboratory: Laboratory Results - last 24 hr 10/17/23 10:35: Sodium 132 L, Potassium 4.8, Chloride 98, Carbon Dioxide 16.0 L,Anion Gap 18 H, BUN 22 H, Creatinine 1.18 H, Estim Creat Clear Calc 73.52, Est GFR (MDRD) Af Amer 70, Est GFR (MDRD) Non-Af 58 L, BUN/Creatinine Ratio 18.6, Glucose 534 H*, Calcium 9.1 10/17/23 12:41: POC Glucose 304 H 10/17/23 13:00: Sodium 137, Potassium 4.1, Chloride 107, Carbon Dioxide 19.0 L, Anion Gap 11, BUN 20 H, Creatinine 0.98, Estim Creat Clear Calc 85.44, Est GFR (MDRD) Af Amer 86, Est GFR (MDRD) Non-Af 71, BUN/Creatinine Ratio 20.4 H, Glucose 303 H, Calcium 8.3 L 10/17/23 14:00: POC Glucose 241 H 10/17/23 14:55: POC Glucose 217 H 10/17/23 16:11: POC Glucose 207 H 10/17/23 16:20: Sodium 138, Potassium 4.3, Chloride 109 H, Carbon Dioxide 22.0, Anion Gap 7, BUN 20 H, Creatinine 0.84, Estim Creat Clear Calc 103.27, Est GFR (MDRD) Af Amer 103, Est GFR (MDRD) Non-Af 85, BUN/Creatinine Ratio 23.8 H, Glucose 261 H, Calcium 8.0 L 10/17/23 17:07: POC Glucose 239 H 10/17/23 21:19: POC Glucose 293 H 10/18/23 04:45: WBC 8.8, RBC 4.07 L, Hgb 12.0, Hct 36.4 L, MCV 89.4, MCH 29.5, MCHC 33.0, RDW Std Deviation 43.0, RDW Coeff of Joyce 13.2, Plt Count 111 L, MPV 12.1 H, Immature Gran % (Auto) 0.700, Neut % (Auto) 59.5, Lymph % (Auto) 32.5, Mclean % (Auto) 6.0, Eos % (Auto) 1.0, Baso % (Auto) 0.3, Absolute Neuts (auto) 5.3, Absolute Lymphs (auto) 2.87, Nucleated RBC % 0, Sodium 138, Potassium 4.1, Chloride 110 H, Carbon Dioxide 25.0, Anion Gap 3 L, BUN 16, Creatinine 0.67, Estim Creat Clear Calc 129.48, Est GFR (MDRD) Af Amer 135, Est GFR (MDRD) Non-Af111, BUN/Creatinine Ratio 24.0 H, Glucose 227 H, Calcium 7.6 L D/C Instructions Discharge Diet: 1800 Calorie Control Diet Discharge Activity: Return to Normal Activity Weight Bearing Status: Weight bearing as tolerated Call your doctor if you observe: Fever of 101 or Higher, Shortness of breath, Dizziness, Swelling in the ankles and Chest pain Meaningful Use Info Meaningful Use Diagnoses (Choose all that apply): None applicable Discharge Plan Admission Admit Date/Time: 10/17/23 11:28 Primary Reason for Your Visit: DKA Attending Provider: Vita Jefferson Primary Care Provider: FUNMILAYO SMITH Instructions Patient Instructions: Ketoacidosis Ch Additional Instructions / Restrictions: follow up with your steward dishwasher and commercial decorator SIRI. Discharge Orders/Prescriptions Prescriptions: Continued insulin lispro [Humalog U-100 Insulin] 100 unit/mL solution See Rx Instructions .ROUTE .COMPLEX Patient Comments: use IN THE INSULIN PUMP FOR A TOTAL DAILY DOSE OF 100 UNITS Rx Instructions: 100 U VIA PUMP DAILY; BASAL RATE - 1.8 UNITS/HOUR BOLUS: CARB RATIO- 1 UNIT /10 GRAMS OF CARBS CORRECTION- 1 UNIT FOR EVERY 30MG/DL BLOOD GLUCOSE OVER 120 (DME) pen needle, diabetic [Ultra-Thin II Ins Pen [place]] 29 gauge x 1/2 needle See Rx Instructions .Route Qty: 100 0RF Rx Instructions: As directed prochlorperazine maleate [Compazine] 10 mg tablet 10 mg PO TID PRN (Reason: nausea and vomiting) Qty: 20 0RF Referrals / Follow Up: FUNMILAYO SMITH [Other] - Within 1 Week FUNMILAYO SMITH [Other] Disposition Disposition (needs filled in before D/C Order can be placed): Home, Self Care Charges/Coding Visit Charges Inpatient E&M: 61546 Disch Hosp >30min 10/18/23 1109 <Electronically signed by Vita Jefferson MD> Cosigner Signature (if applicable): CC: Dr. Vita Jefferson MD; FUNMILAYO SMITH~ Signed [facility] Work Phone: Evaluation note* Diagnosis Type 1 diabetes mellitus with other specified complication (HCC)- [facility] Diagnosis Obstruction of central line, initial encounter (HCC)- [facility] Diagnosis Type 1 diabetes mellitus with other specified complication (HCC)- [facility] Diagnosis Menstrual irregularity- Primary Irregular menstrual cycle Screening for STD (sexually transmitted disease) Screening examination for venereal disease Chronic nausea Nausea alone [facility] Diagnosis 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) [facility] Diagnosis Chronic idiopathic constipation Unspecified constipation [facility] Diagnosis Gonorrhea- Primary Gonococcal infection (acute) of lower genitourinary tract [facility] Diagnosis Gonorrhea- Primary Gonococcal infection (acute) of lower genitourinary tract [facility] Gonorrhea- Primary Gonococcal infection (acute) of lower genitourinary tract Screen for sexually transmitted diseases Screening examination for venereal disease [facility] Diagnosis Type 1 diabetes mellitus with hyperglycemia (HCC)- Primary Type I (juvenile type) diabetes mellitus without mention of complication, not stated as uncontrolled Insulin pump status Abnormal results of thyroid function studies Nonspecific abnormal results of thyroid function study [facility] Diagnosis Type 1 diabetes mellitus with hyperglycemia, with long-term current use of insulin (HCC)- Primary Insulin pump status [facility] Diagnosis Type 1 diabetes mellitus with other specified complication (HCC)- [facility] Diagnosis Lower abdominal pain- Primary Abdominal pain, other specified site [facility] Diagnosis Viral conjunctivitis- Primary Unspecified diseases of conjunctiva due to viruses documented in this encounter [facility] note* Diagnosis Gastroparesis due to DM (HCC)- Primary Type II or unspecified type diabetes mellitus with neurological manifestations, not stated as uncontrolled Aortic root aneurysm (HCC) Aortic aneurysm of unspecified site without mention of rupture Primary hypertension Unspecified essential hypertension Chronic nausea Nausea alone 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 ([facility]) Marfan syndrome Marfan's syndrome PTSD (post-traumatic stress disorder) Posttraumatic stress disorder Generalized abdominal pain Abdominal pain, generalized documented in this encounter [facility] note* Diagnosis Gastroparesis due to DM (HCC)- Primary Type II or unspecified type diabetes mellitus with neurological manifestations, not stated as uncontrolled Generalized abdominal pain Abdominal pain, generalized documented in this encounter [facility] note* Diagnosis Left flank pain- Primary Abdominal pain, unspecified site documented in this encounter [facility] note* Diagnosis Left flank pain- Primary Abdominal pain, unspecified site Dysuria documented in this encounter [facility] note* Diagnosis Type 1 diabetes mellitus with hyperglycemia, with long-term current use of insulin ([facility])- Primary Insulin pump status Screening for diabetic retinopathy Screening for other eye conditions documented in this encounter [facility] note* Diagnosis Nausea & vomiting- Primary Nausea with vomiting Hyperglycemia Other abnormal glucose Ketonuria Acetonuria Nausea and vomiting, unspecified vomiting type Abdominal pain, unspecified abdominal location Chest pain, unspecified type Bradycardia Other specified cardiac dysrhythmias documented in this encounter [facility] noteNo assessment information availableWPro[facility] Work Phone: Evaluation note* Diagnosis Onset Date Resolution Status Intractable vomiting acute [facility] Work Phone: Evaluation note* Diagnosis Psoriasis vulgaris- Primary Other psoriasis documented in this encounter [facility] note* Diagnosis Type 1 diabetes mellitus with hyperglycemia, with long-term current use of insulin ([facility])- Primary Insulin pump status documented in this encounter [facility] note* Diagnosis Onset Date Resolution Status Diabetic gastroparesis acute DKA (diabetic ketoacidoses) acute Enterocolitis acute Intractable nausea and vomiting acute Nausea & vomiting acute Type 1 diabetes acute [facility] Work Phone: Evaluation note* Diagnosis Onset Date Resolution Status DKA (diabetic ketoacidoses) resolved Intractable nausea and vomiting resolved Nausea & vomiting resolved [facility] Work Phone: Evaluation note* Diagnosis Onset Date Resolution Status DKA (diabetic ketoacidoses) resolved Intractable nausea and vomiting resolved Nausea & vomiting resolved Acute dehydration acute DKA (diabetic ketoacidosis) acute Nausea & vomiting acute Tachycardia acute [facility] Work Phone: Evaluation note* Diagnosis Psoriasis vulgaris- Primary Other psoriasis Multiple benign nevi documented in this encounter [facility] note* Diagnosis Onset Date Resolution Status DKA (diabetic ketoacidoses) resolved Intractable nausea and vomiting resolved Nausea & vomiting resolved Acute dehydration resolved DKA (diabetic ketoacidosis) resolved Nausea & vomiting resolved Tachycardia resolved [facility] Work Phone: Evaluation note* Diagnosis Type 1 diabetes mellitus with hyperglycemia, with long-term current use of insulin ([facility])- Primary Insulin pump status documented in this encounter [facility] note* Diagnosis Type 1 diabetes mellitus with hyperglycemia, with long-term current use of insulin ([facility]) Insulin pump status documented in this encounter [facility] note* Diagnosis Type 1 diabetes mellitus with hyperglycemia, with long-term current use of insulin ([facility])- Primary Insulin pump status documented in this encounter [facility] note* Diagnosis Type 1 diabetes mellitus with hyperglycemia, with long-term current use of insulin ([facility]) documented in this encounter [facility] note* Diagnosis Obstructive sleep apnea- Primary Obstructive sleep apnea (adult) (pediatric) Dyspnea Other dyspnea and respiratory abnormality Type 1 diabetes mellitus with hyperglycemia, with long-term current use of insulin ([facility]) Insulin pump status documented in this encounter [facility] note* Diagnosis Obstructive sleep apnea- Primary Obstructive sleep apnea (adult) (pediatric) Dyspnea Other dyspnea and respiratory abnormality Diabetes mellitus type 1, controlled, without complications (HCC)- Primary Type I (juvenile type) diabetes mellitus without mention of complication, not stated as uncontrolled documented in this encounter [facility] note* Diagnosis Obstructive sleep apnea- Primary Obstructive sleep apnea (adult) (pediatric) Dyspnea Other dyspnea and respiratory abnormality Encounter for gynecological examination (general) (routine) without abnormal findings- Primary Encounter for screening for malignant neoplasm of cervix Screening for malignant neoplasm of the cervix Screening for human papillomavirus (HPV) Special screening examination for human papillomavirus (HPV) Irregular menstrual bleeding Irregular menstrual cycle Routine screening for STI (sexually transmitted infection) Screening examination for venereal disease [facility]* Diagnosis Obstructive sleep apnea- Primary Obstructive sleep apnea (adult) (pediatric) Dyspnea Other dyspnea and respiratory abnormality Type 1 diabetes mellitus with hyperglycemia, with long-term current use of insulin (HCC)- Primary Insulin pump status [facility]* Diagnosis Obstructive sleep apnea- Primary Obstructive sleep apnea (adult) (pediatric) Dyspnea Other dyspnea and respiratory abnormality Type 1 diabetes mellitus with hyperglycemia, with long-term current use of insulin (HCC) Insulin pump status [facility]* Diagnosis Psoriasis vulgaris- Primary Other psoriasis Folliculitis Other specified disease of hair and hair follicles Encounter for long-term current use of high risk medication Screening for viral disease Special screening examination for unspecified viral disease documented in this encounter [facility] note* Diagnosis Obstructive sleep apnea- Primary Obstructive sleep apnea (adult) (pediatric) Dyspnea Other dyspnea and respiratory abnormality Chronic idiopathic constipation- Primary Unspecified constipation Gastroparesis documented in this encounter [facility] note* Diagnosis Obstructive sleep apnea- Primary Obstructive sleep apnea (adult) (pediatric) Dyspnea Other dyspnea and respiratory abnormality Chronic idiopathic constipation- Primary Unspecified constipation Abdominal pain, suprapubic Abdominal pain, other specified site Chronic idiopathic constipation Unspecified constipation documented in this encounter [facility] note* Diagnosis Obstructive sleep apnea- Primary Obstructive sleep apnea (adult) (pediatric) Dyspnea Other dyspnea and respiratory abnormality Chronic idiopathic constipation Unspecified constipation documented in this encounter [facility] note* Diagnosis Psoriasis vulgaris- Primary Other psoriasis Folliculitis Other specified disease of hair and hair follicles Multiple benign melanocytic nevi of both upper extremities, both lower extremities, and trunk Seborrheic keratosis Solar lentigo Other dyschromia Dermatofibroma Benign neoplasm of skin, site unspecified [place] angioma Screening for viral disease Special screening examination for unspecified viral disease Encounter for screening for respiratory tuberculosis Encounter for long-term (current) use of medications Encounter for long-term (current) use of other medications documented in this encounter [facility] course Narrative No data available for this section [facility] Discharge instructions No data available for this section [facility] Discharge instructions* Attachments The following attachments cannot be sent through Care Everywhere. * Gastroparesis ([place]) [facility] Additional Instructions Please follow-up with your diabetes doctor Please keep a close eye on your blood sugar and adjust your pump accordingly. Please try to drink plenty of fluids today.[facility] Work Phone: Hospital Discharge instructions Additional Instructions You have influenza B. You should start to feel better later in the week. You need to maintain hydration, keep a close eye on your sugars. You need to eat and drink, do not get behind and get dehydrated. Use ibuprofen and Tylenol. Use your albuterol inhaler.[facility] Work Phone: Progress note No data available for this section [facility] Reason for visit Narrative* Diagnostic Procedure Only (Routine) - Closed Specialty Diagnoses / Procedures Referred By Contac t Referred To Contact XR IMAGING Diagnoses Chronic idiopathic constipation Procedures XR ABDOMEN 1V SUPINE RADIOLOGIC EXAM ABDOMEN 1 VIEW Leticia Hylton DO [address] [place] [address] Phone: tel: fax: [place] [phone] Referral ID Status Reason Start Date Expiration Date V isits Requested Visits Authorized [id number] Closed Auto-Generate d Referral 11/11/2024 12/11/2025 1 1 [facility] Summary Purpose Family History No Family History Records FoundNo Family History Records FoundNo Family History Records FoundNo Family History Records FoundNo Family History Records FoundNo Family History Records FoundNo Family History Records FoundNo Family History Records FoundNo Family History Records FoundNo Family History Records Found Advance Directives No Advanced Directives Records FoundDocuments on File Type Date Recorded 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 Advance Directive(s) Advance Directive(s) 01/02/2020 3:16 PM Advance Directive(s) 01/20/2016 9:39 AM Advance Directive(s) 11/13/2015 8:50 AM Advance Directive(s) 02/27/2014 5:42 PM Advance Directive(s) 01/09/2014 8:55 PM Advance Directive(s) 12/25/2012 9:16 PM Documents on File Type Date Recorded 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 Advance Directive(s) 02/27/2014 5:42 PM Advance Directive(s) 01/09/2014 8:55 PM Advance Directive(s) 12/25/2012 9:16 PM Documents on File Type Date Recorded 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 Advance Directive(s) 02/27/2014 5:42 PM Advance Directive(s) 01/09/2014 8:55 PM Advance Directive(s) 12/25/2012 9:16 PM Latest Code Status on File Code Status Date Activated Date Inactivated Comments Full Code 11/23/2022 11:30 PM 11/26/2022 7:43 PM Full Code Order Discussed With: Patient Latest Code Status on File Code Status Date Activated Date Inactivated Comments Full Code 11/23/2022 11:30 PM 11/26/2022 7:43 PM Latest Code Status on File Code Status Date Activated Date Inactivated Comments Full Code 02/01/2023 2:02 AM Full Code 11/23/2022 11:30 PM 11/26/2022 7:43 PM Latest Code Status on File Code Status Date Activated Date Inactivated Comments Full Code 02/01/2023 2:02 AM 02/04/2023 6:35 PM Latest Code Status on File Code Status Date Activated Date Inactivated Comments Full Code - Unverified 03/20/2023 11:33 AM 03/22/2023 6: 44 PM Advance Directive Response Recorded Date/ Time Living Will No April 26 9:30pm Power of General Education Professor No April 26 2 023 9:30pm Advance Directive Response Recorded Date/ Time Living Will No April 27 9:26am Power of General Education Professor No April 27 2 023 9:26am Advance Directive Response Recorded Date/ Time Living Will No April 27 3 5:02pm Power of General Education Professor No April 27, 2 023 5:02pm Advance Directive Response Recorded Date/ Time Living Will No May 03 2 023 4:27am Power of General Education Professor No May 03, 2023 4:27am Latest Code Status on File Code Status Date Activated Date Inactivated Comments Full Code 02/01/2023 2:02 AM 02/04/2023 6:35 PM Question Answer Comments Full Code Order Discussed With: Patient Code Status History Code Status Date Activated Date Inactivated Comments Full Code 11/23/2022 11:30 PM 11/26/2022 7:43 PM Question Answer Comments Full Code Order Discussed With: Patient Advance Directive Response Recorded Date/ Time Living Will No June 25 9:47am Power of General Education Professor No June 25, 2023 9:47am Advance Directive Response Recorded Date/ Time Living Will No June 25 11:14pm Power of General Education Professor No June 25, 2023 11:14pm Advance Directive Response Recorded Date/ Time Living Will No August 06, 2 023 8:56am Power of General Education Professor No August 06, 2023 8:56am Advance Directive Response Recorded Date/ Time Living Will No August 06, 2 023 9:39pm Power of General Education Professor No August 06, 2023 9:39pm Advance Directive Response Recorded Date/ Time Living Will No August 22, 2 023 2:48am Power of General Education Professor No August 22, 2023 2:48am Advance Directive Response Recorded Date/ Time Living Will No September 24 5:58pm Power of General Education Professor No September 24, 2023 5:58pm Advance Directive Response Recorded Date/ Time Living Will No October 17, 2 024 10:02am Power of General Education Professor No October 17, 2023 10:02am Advance Directive Response Recorded Date/ Time Living Will No October 17, 2 024 12:47pm Power of General Education Professor No October 17, 2023 12:47pm Advance Directive Response Recorded Date/ Time Living Will No October 25, 2 024 4:43pm Power of General Education Professor No October 25, 2023 4:43pm Date Activated Date Inactivated Comments 02/01/2023 2:02 AM 02/04/2023 6:35 PM Question Answer Comments Full Code Order Discussed With: Patient Date Activated Date Inactivated Comments 11/23/2022 11:30 PM 11/26/2022 7:43 PM Question Answer Comments Full Code Order Discussed With: Patient Advance Directive Response Recorded Date/ Time Living Will No October 25, 2 024 5:43pm Power of General Education Professor No October 25, 2023 5:43pm Date Activated Date Inactivated Comments 02/01/2023 2:02 AM 02/04/2023 6:35 PM Question Answer Comments Full Code Order Discussed With: Patient Date Activated Date Inactivated Comments 11/23/2022 11:30 PM 11/26/2022 7:43 PM Question Answer Comments Full Code Order Discussed With: Patient Advance Directive Response Recorded Date/ Time Living Will No August 07, 023 1:35am Power of General Education Professor No August 07, 2023 1:35am Health Concerns Infection Onset Date Last Indicated Resolved Time COVID-19 Rule-Out 10/21/2021 12/27/2021 02/05/2022 8:54 PM EDT COVID-19 Rule-Out 01/29/2022 01/29/2022 02/08/2022 12:54 PM EDT Infection Onset Date Last Indicated Resolved Time COVID-19 Rule-Out 10/21/2021 12/27/2021 02/05/2022 8:54 PM EDT COVID-19 Rule-Out 01/29/2022 01/29/2022 02/08/2022 12:54 PM EDT COVID-19 Rule-Out 04/22/2022 04/22/2022 04/22/2022 6:31 PM EDT Infection Onset Date Last Indicated Resolved Time COVID-19 Rule-Out 11/02/2022 11/02/2022 11/02/2022 5:15 PM EST Infection Onset Date Last Indicated Resolved Time COVID-19 Rule-Out 11/02/2022 11/02/2022 11/02/2022 5:15 PM EST COVID-19 Rule-Out 11/23/2022 11/23/2022 11/24/2022 3:23 AM EDT COVID-19 Rule-Out 11/24/2022 11/24/2022 11/24/2022 4:55 AM EDT Medications Administered Section Inactive Administered Medications - up to 3 most recent administrations Medication Order MAR Action Action Date Dose Rate Site alteplase 2 mg catheter clearance solution (CATHFLO) 2 mg, INTRALUMINAL, ONCE, 1 dose, On Mon03/11/22 at 1200, Refrigerate - Protect From Light Add 2.2 mL SWFI or NaCl 0.9% to vial. Do Not Shake. Mix gently by swirling until contents are completely dissolved. Final Concentration: 1 mg/mL. Use within 8 hours. Given 03/11/2022 12:07 PM EDT 2 mg Inactive Administered Medications - up to 3 most recent administrations Medication Order MAR Action Action Date Dose Rate Site cefTRIAXone 250 mg intramuscular injection (ROCEPHIN) 250 mg, INTRAMUSCULAR, ONCE, 1 dose, On Ramila 05/12/22 at 1000, Please document the antimicrobial indication: Empiric Given 05/12/2022 10:00 AM EDT 250 mg Buttocks, Left Inactive Administered Medications - up to 3 most recent administrations Medication Order MAR Action Action Date Dose Rate Site keTORolac 60 mg injection (TORADOL) 60 mg, INTRAMUSCULAR, ONCE, 1 dose, On 10/22/22 at 1630, Ketorolac (Toradol) is indicated for the short-term (up to 5 days) management of moderately severe acute pain. Continuation of ketorolac (Toradol) beyond 5 days increases the risk of developing serious adverse events. Please verify the duration of therapy for ketorolac (Toradol)., If ordered PRN for pain, patient/guardian may elect to receive this medication for higher pain levels INSTEAD of the opioid, if preferred: Yes Given 10/22/2022 4:34 PM EST 60 mg Buttocks, Right Reason for Referral Specialty Diagnoses / Procedures Referred By Ajay t Referred To Contact Diagnoses Type 1 diabetes mellitus with hyperglycemia, with long-term current use of insulin (HCC) Procedures CONSULT TO DIABETES EDUCATION DSME/MNT MEDICAL NUTRITION ASSMT&IVNTJ INDIV EACH 15 [place] MEDICAL NUTRITION ASSMT&IVNTJ INDIV EACH 15 [place] MEDICAL NUTRITION ASSMT&IVNTJ INDIV EACH 15 [place] MEDICAL NUTRITION ASSMT&IVNTJ INDIV EACH 15 OK Jessica Guerrero, ESTEFANIA.[facility] [address] [place] [address] Referral ID Status Reason Start Date Expiration Date Visits Requested Visits Authorized [id number] Authorized PCP Requested Referral 12/13/2023 12/12/2024 1 1 Specialty Diagnoses / Procedures Referred By Ajay t Referred To Contact Diagnoses Psoriasis vulgaris Leesa Huddleston PA-C [address] [facility] [address] [place] [address] Referral ID Status Reason Start Date Expiration Date V isits Requested Visits Authorized [id number] Authorized 04/14/2021 05/13/2024 1 1 Specialty Diagnoses / Procedures Referred By Ajay t Referred To Contact Ophthalmology Diagnoses Screening for diabetic retinopathy Procedures CONSULT TO OPHTHALMOLOGY OFFICE/OUTPATIENT NEW HIGH MDM 60-74 MINUTES Autumn Valadez, COMPUTER SYSTEMS TECHNOLOGY INSTRUCTOR.TECHNICAL PROGRAMS MANAGER [address] [place] [address] Referral ID Status Reason Start Date Expiration Date Visits Requested Visits Authorized [id number] Authorized PCP Requested Referral 01/25/2023 01/25/2024 1 1 Specialty Diagnoses / Procedures Referred By Contac t Referred To Contact Gastroenterology Diagnoses Gastroparesis due to DM (HCC) Generalized abdominal pain Procedures CONSULT TO GASTROENTEROLOGY OFFICE/OUTPATIENT [facility] 60-74 MINUTES Vivi Smith MD [address] [place] [address] [place] [address] [facility] [address] [place] [address] Referral ID Status Reason Start Date Expiration Date Visits Requested Visits Authorized [id number] Authorized PCP Requested Referral 12/09/2022 12/09/2023 1 1 Specialty Diagnoses / Procedures Referred By Contac t Referred To Contact Pain Management / PAIN MANAGEMENT Diagnoses Gastroparesis due to DM (HCC) Generalized abdominal pain Procedures CONSULT TO PAIN MGT OFFICE/OUTPATIENT [facility] 60-74 MINUTES Vivi Smith MD [address] [place] [address] Elisabet Guzmán DO [address] [place] [address] Referral ID Status Reason Start Date Expiration Date Visits Requested Visits Authorized [id number] Authorized PCP Requested Referral 12/09/2022 12/09/2023 1 1 Specialty Diagnoses / Procedures Referred By Contac t Referred To Contact Gynecology Diagnoses Menstrual irregularity Procedures CONSULT TO GYNECOLOGY OFFICE/OUTPATIENT [facility] 60-74 MINUTES Dashawn Cain, COMPUTER SYSTEMS TECHNOLOGY INSTRUCTOR.TECHNICAL PROGRAMS MANAGER [address] [place] [address] Referral ID Status Reason Start Date Expiration Date Visits Requested Visits Authorized [id number] Authorized PCP Requested Referral Auto-Generate d Referral 04/18/2022 04/18/2023 1 1 Chief Complaint and Reason for Visit Chief Complaint N/V TACHYCARDIA Chief Complaint N/V TACHYCARDIA INTRACTABLE NAUSEA AND VOMITING Reason for Visit Intractable vomiting Chief Complaint N/V TACHYCARDIA INTRACTABLE NAUSEA AND VOMITING INTRACTABLE NAUSEA AND VOMITING INTRACTABLE NAUSEA AND VOMITING INTRACTABLE NAUSEA AND VOMITING Reason for Visit Intractable vomiting Chief Complaint N/V TACHYCARDIA INTRACTABLE NAUSEA AND VOMITING INTRACTABLE NAUSEA AND VOMITING INTRACTABLE NAUSEA AND VOMITING INTRACTABLE NAUSEA AND VOMITING NV Chief Complaint N/V TACHYCARDIA INTRACTABLE NAUSEA AND VOMITING INTRACTABLE NAUSEA AND VOMITING INTRACTABLE NAUSEA AND VOMITING INTRACTABLE NAUSEA AND VOMITING NV nausea vomiting Chief Complaint N/V TACHYCARDIA INTRACTABLE NAUSEA AND VOMITING INTRACTABLE NAUSEA AND VOMITING INTRACTABLE NAUSEA AND VOMITING INTRACTABLE NAUSEA AND VOMITING NV nausea vomiting N/V DIZZY Chief Complaint N/V TACHYCARDIA INTRACTABLE NAUSEA AND VOMITING INTRACTABLE NAUSEA AND VOMITING INTRACTABLE NAUSEA AND VOMITING INTRACTABLE NAUSEA AND VOMITING NV nausea vomiting N/V DIZZY n/v Chief Complaint N/V TACHYCARDIA INTRACTABLE NAUSEA AND VOMITING INTRACTABLE NAUSEA AND VOMITING INTRACTABLE NAUSEA AND VOMITING INTRACTABLE NAUSEA AND VOMITING NV nausea vomiting N/V DIZZY n/v DKA, ENTEROLITIS ON CT Reason for Visit Diabetic gastropares is DKA (diabetic ketoacidoses) Enterocolitis Intractable nausea and vomiting Nausea & vomiting Type 1 diabetes Chief Complaint TACHYCARDIA INTRACTABLE NAUSEA AND VOMITING INTRACTABLE NAUSEA AND VOMITING INTRACTABLE NAUSEA AND VOMITING INTRACTABLE NAUSEA AND VOMITING NV nausea vomiting N/V DIZZY n/v DKA, ENTEROLITIS ON CT DKA, ENTEROLITIS ON CT DKA, ENTEROLITIS ON CT DKA, ENTEROLITIS ON CT abdominal pain Reason for Visit DKA (diabetic ketoac idoses) Intractable nausea and vomiting Nausea & vomiting Chief Complaint nausea vomiting N/V DIZZY n/v DKA, ENTEROLITIS ON CT DKA, ENTEROLITIS ON CT DKA, ENTEROLITIS ON CT DKA, ENTEROLITIS ON CT abdominal pain N/V nausea vomiting, dizzyness. bs at home 574 cough Reason for Visit DKA (diabetic ketoac idoses) Intractable nausea and vomiting Nausea & vomiting Chief Complaint nausea vomiting N/V DIZZY n/v DKA, ENTEROLITIS ON CT DKA, ENTEROLITIS ON CT DKA, ENTEROLITIS ON CT DKA, ENTEROLITIS ON CT abdominal pain N/V nausea vomiting, dizzyness. bs at home 574 cough SOB DKA Reason for Visit DKA (diabetic ketoac idoses) Intractable nausea and vomiting Nausea & vomiting Acute dehydration DKA (diabetic ketoacidosis) Nausea & vomiting Tachycardia Chief Complaint nausea vomiting N/V DIZZY n/v DKA, ENTEROLITIS ON CT DKA, ENTEROLITIS ON CT DKA, ENTEROLITIS ON CT DKA, ENTEROLITIS ON CT abdominal pain N/V nausea vomiting, dizzyness. bs at home 574 cough SOB DKA DKA Reason for Visit DKA (diabetic ketoac idoses) Intractable nausea and vomiting Nausea & vomiting Acute dehydration DKA (diabetic ketoacidosis) Nausea & vomiting Tachycardia Chief Complaint n/v DKA, ENTEROLITIS ON CT DKA, ENTEROLITIS ON CT DKA, ENTEROLITIS ON CT DKA, ENTEROLITIS ON CT abdominal pain N/V nausea vomiting, dizzyness. bs at home 574 cough SOB DKA DKA Mental Health Reason for Visit DKA (diabetic ketoac idoses) Intractable nausea and vomiting Nausea & vomiting Acute dehydration DKA (diabetic ketoacidosis) Nausea & vomiting Tachycardia Chief Complaint DKA, ENTEROLITIS ON CT DKA, ENTEROLITIS ON CT DKA, ENTEROLITIS ON CT abdominal pain N/V nausea vomiting, dizzyness. bs at home 574 cough SOB DKA DKA Mental Health BLOOD GLUCOSE Reason for Visit DKA (diabetic ketoac idoses) Intractable nausea and vomiting Nausea & vomiting Acute dehydration DKA (diabetic ketoacidosis) Nausea & vomiting Tachycardia Chief Complaint N/V TACHYCARDIA INTRACTABLE NAUSEA AND VOMITING INTRACTABLE NAUSEA AND VOMITING INTRACTABLE NAUSEA AND VOMITING INTRACTABLE NAUSEA AND VOMITING NV nausea vomiting N/V DIZZY n/v DKA, ENTEROLITIS ON CT DKA, ENTEROLITIS ON CT DKA, ENTEROLITIS ON CT Reason for Visit Diabetic gastropares is DKA (diabetic ketoacidoses) Enterocolitis Intractable nausea and vomiting Nausea & vomiting Type 1 diabetes Additional Source Comments INFORMATION SOURCE (unrecogn ized section and content) DATE CREATED AUTHOR 02/21/2018 [facility] DATE CREATED AUTHOR AUTHOR'S ORGANIZ ATION 12/28/2021 [facility] DATE CREATED AUTHOR AUTHOR'S ORGANIZ ATION 02/12/2022 [facility] DATE CREATED AUTHOR AUTHOR'S ORGANIZ ATION 03/04/2023 [facility] DATE CREATED AUTHOR AUTHOR'S ORGANIZ ATION 04/20/2023 [facility] DATE CREATED AUTHOR AUTHOR'S ORGANIZ ATION 12/17/2023 [facility] DATE CREATED AUTHOR AUTHOR'S ORGANIZ ATION 11/13/2024 [facility] DATE CREATED AUTHOR AUTHOR'S ORGANIZ ATION 11/15/2024 [facility] DATE CREATED AUTHOR AUTHOR'S ORGANIZ ATION 01/28/2025 [facility] DATE CREATED AUTHOR AUTHOR'S ORGANIZ ATION 03/16/[address] [facility] Source Comments (unrecognize d section and content) In the event this informatio n is protected by the Federal Confidentiality of Alcohol and Drug Abuse Patient Records regulations: The Federal rules restrict any use of the information to criminally investigate or prosecute any alcohol or drug abuse patient.[facility] HospitalIn the event this information is protected by the Federal Confidentiality of Alcohol and Drug Abuse Patient Records regulations: The Federal rules restrict any use of the information to criminally investigate or prosecute any alcohol or drug abuse patient.[facility] HospitalIn the event this information is protected by the Federal Confidentiality of Alcohol and Drug Abuse Patient Records regulations: The Federal rules restrict any use of the information to criminally investigate or prosecute any alcohol or drug abuse patient.[facility] HospitalIn the event this information is protected by the Federal Confidentiality of Alcohol and Drug Abuse Patient Records regulations: The Federal rules restrict any use of the information to criminally investigate or prosecute any alcohol or drug abuse patient.[facility] HospitalIn the event this information is protected by the Federal Confidentiality of Alcohol and Drug Abuse Patient Records regulations: The Federal rules restrict any use of the information to criminally investigate or prosecute any alcohol or drug abuse patient.[facility] HospitalIn the event this information is protected by the Federal Confidentiality of Alcohol and Drug Abuse Patient Records regulations: The Federal rules restrict any use of the information to criminally investigate or prosecute any alcohol or drug abuse patient.[facility] HospitalIn the event this information is protected by the Federal Confidentiality of Alcohol and Drug Abuse Patient Records regulations: The Federal rules restrict any use of the information to criminally investigate or prosecute any alcohol or drug abuse patient.[facility] HospitalIn the event this information is protected by the Federal Confidentiality of Alcohol and Drug Abuse Patient Records regulations: The Federal rules restrict any use of the information to criminally investigate or prosecute any alcohol or drug abuse patient.[facility] HospitalIn the event this information is protected by the Federal Confidentiality of Alcohol and Drug Abuse Patient Records regulations: The Federal rules restrict any use of the information to criminally investigate or prosecute any alcohol or drug abuse patient.[facility] HospitalIn the event this information is protected by the Federal Confidentiality of Alcohol and Drug Abuse Patient Records regulations: The Federal rules restrict any use of the information to criminally investigate or prosecute any alcohol or drug abuse patient.[facility] HospitalIn the event this information is protected by the Federal Confidentiality of Alcohol and Drug Abuse Patient Records regulations: The Federal rules restrict any use of the information to criminally investigate or prosecute any alcohol or drug abuse patient.[facility] HospitalIn the event this information is protected by the Federal Confidentiality of Alcohol and Drug Abuse Patient Records regulations: The Federal rules restrict any use of the information to criminally investigate or prosecute any alcohol or drug abuse patient.[facility] HospitalIn the event this information is protected by the Federal Confidentiality of Alcohol and Drug Abuse Patient Records regulations: The Federal rules restrict any use of the information to criminally investigate or prosecute any alcohol or drug abuse patient.[facility] HospitalIn the event this information is protected by the Federal Confidentiality of Alcohol and Drug Abuse Patient Records regulations: The Federal rules restrict any use of the information to criminally investigate or prosecute any alcohol or drug abuse patient.[facility] HospitalIn the event this information is protected by the Federal Confidentiality of Alcohol and Drug Abuse Patient Records regulations: The Federal rules restrict any use of the information to criminally investigate or prosecute any alcohol or drug abuse patient.[facility] HospitalIn the event this information is protected by the Federal Confidentiality of Alcohol and Drug Abuse Patient Records regulations: The Federal rules restrict any use of the information to criminally investigate or prosecute any alcohol or drug abuse patient.[facility] HospitalIn the event this information is protected by the Federal Confidentiality of Alcohol and Drug Abuse Patient Records regulations: The Federal rules restrict any use of the information to criminally investigate or prosecute any alcohol or drug abuse patient.[facility] HospitalIn the event this information is protected by the Federal Confidentiality of Alcohol and Drug Abuse Patient Records regulations: The Federal rules restrict any use of the information to criminally investigate or prosecute any alcohol or drug abuse patient.[facility] HospitalIn the event this information is protected by the Federal Confidentiality of Alcohol and Drug Abuse Patient Records regulations: The Federal rules restrict any use of the information to criminally investigate or prosecute any alcohol or drug abuse patient.[facility] HospitalIn the event this information is protected by the Federal Confidentiality of Alcohol and Drug Abuse Patient Records regulations: The Federal rules restrict any use of the information to criminally investigate or prosecute any alcohol or drug abuse patient.[facility] HospitalIn the event this information is protected by the Federal Confidentiality of Alcohol and Drug Abuse Patient Records regulations: The Federal rules restrict any use of the information to criminally investigate or prosecute any alcohol or drug abuse patient.[facility] HospitalIn the event this information is protected by the Federal Confidentiality of Alcohol and Drug Abuse Patient Records regulations: The Federal rules restrict any use of the information to criminally investigate or prosecute any alcohol or drug abuse patient.[facility] HospitalIn the event this information is protected by the Federal Confidentiality of Alcohol and Drug Abuse Patient Records regulations: The Federal rules restrict any use of the information to criminally investigate or prosecute any alcohol or drug abuse patient.[facility] HospitalIn the event this information is protected by the Federal Confidentiality of Alcohol and Drug Abuse Patient Records regulations: The Federal rules restrict any use of the information to criminally investigate or prosecute any alcohol or drug abuse patient.[facility] HospitalIn the event this information is protected by the Federal Confidentiality of Alcohol and Drug Abuse Patient Records regulations: The Federal rules restrict any use of the information to criminally investigate or prosecute any alcohol or drug abuse patient.[facility] HospitalIn the event this information is protected by the Federal Confidentiality of Alcohol and Drug Abuse Patient Records regulations: The Federal rules restrict any use of the information to criminally investigate or prosecute any alcohol or drug abuse patient.[facility] HospitalIn the event this information is protected by the Federal Confidentiality of Alcohol and Drug Abuse Patient Records regulations: The Federal rules restrict any use of the information to criminally investigate or prosecute any alcohol or drug abuse patient.[facility] HospitalIn the event this information is protected by the Federal Confidentiality of Alcohol and Drug Abuse Patient Records regulations: The Federal rules restrict any use of the information to criminally investigate or prosecute any alcohol or drug abuse patient.[facility] HospitalIn the event this information is protected by the Federal Confidentiality of Alcohol and Drug Abuse Patient Records regulations: The Federal rules restrict any use of the information to criminally investigate or prosecute any alcohol or drug abuse patient.[facility] HospitalIn the event this information is protected by the Federal Confidentiality of Alcohol and Drug Abuse Patient Records regulations: The Federal rules restrict any use of the information to criminally investigate or prosecute any alcohol or drug abuse patient.[facility] HospitalIn the event this information is protected by the Federal Confidentiality of Alcohol and Drug Abuse Patient Records regulations: The Federal rules restrict any use of the information to criminally investigate or prosecute any alcohol or drug abuse patient.[facility] HospitalIn the event this information is protected by the Federal Confidentiality of Alcohol and Drug Abuse Patient Records regulations: The Federal rules restrict any use of the information to criminally investigate or prosecute any alcohol or drug abuse patient.[facility] HospitalIn the event this information is protected by the Federal Confidentiality of Alcohol and Drug Abuse Patient Records regulations: The Federal rules restrict any use of the information to criminally investigate or prosecute any alcohol or drug abuse patient.[facility] HospitalIn the event this information is protected by the Federal Confidentiality of Alcohol and Drug Abuse Patient Records regulations: The Federal rules restrict any use of the information to criminally investigate or prosecute any alcohol or drug abuse patient.[facility] HospitalIn the event this information is protected by the Federal Confidentiality of Alcohol and Drug Abuse Patient Records regulations: The Federal rules restrict any use of the information to criminally investigate or prosecute any alcohol or drug abuse patient.[facility] HospitalIn the event this information is protected by the Federal Confidentiality of Alcohol and Drug Abuse Patient Records regulations: The Federal rules restrict any use of the information to criminally investigate or prosecute any alcohol or drug abuse patient.[facility] HospitalIn the event this information is protected by the Federal Confidentiality of Alcohol and Drug Abuse Patient Records regulations: The Federal rules restrict any use of the information to criminally investigate or prosecute any alcohol or drug abuse patient.[facility] HospitalIn the event this information is protected by the Federal Confidentiality of Alcohol and Drug Abuse Patient Records regulations: The Federal rules restrict any use of the information to criminally investigate or prosecute any alcohol or drug abuse patient.[facility] HospitalIn the event this information is protected by the Federal Confidentiality of Alcohol and Drug Abuse Patient Records regulations: The Federal rules restrict any use of the information to criminally investigate or prosecute any alcohol or drug abuse patient.[facility] HospitalIn the event this information is protected by the Federal Confidentiality of Alcohol and Drug Abuse Patient Records regulations: The Federal rules restrict any use of the information to criminally investigate or prosecute any alcohol or drug abuse patient.[facility] HospitalIn the event this information is protected by the Federal Confidentiality of Alcohol and Drug Abuse Patient Records regulations: The Federal rules restrict any use of the information to criminally investigate or prosecute any alcohol or drug abuse patient.[facility] HospitalIn the event this information is protected by the Federal Confidentiality of Alcohol and Drug Abuse Patient Records regulations: The Federal rules restrict any use of the information to criminally investigate or prosecute any alcohol or drug abuse patient.[facility] HospitalIn the event this information is protected by the Federal Confidentiality of Alcohol and Drug Abuse Patient Records regulations: The Federal rules restrict any use of the information to criminally investigate or prosecute any alcohol or drug abuse patient.[facility] HospitalIn the event this information is protected by the Federal Confidentiality of Alcohol and Drug Abuse Patient Records regulations: The Federal rules restrict any use of the information to criminally investigate or prosecute any alcohol or drug abuse patient.[facility] HospitalIn the event this information is protected by the Federal Confidentiality of Alcohol and Drug Abuse Patient Records regulations: The Federal rules restrict any use of the information to criminally investigate or prosecute any alcohol or drug abuse patient.[facility] HospitalIn the event this information is protected by the Federal Confidentiality of Alcohol and Drug Abuse Patient Records regulations: The Federal rules restrict any use of the information to criminally investigate or prosecute any alcohol or drug abuse patient.[facility] HospitalIn the event this information is protected by the Federal Confidentiality of Alcohol and Drug Abuse Patient Records regulations: The Federal rules restrict any use of the information to criminally investigate or prosecute any alcohol or drug abuse patient.[facility] HospitalIn the event this information is protected by the Federal Confidentiality of Alcohol and Drug Abuse Patient Records regulations: The Federal rules restrict any use of the information to criminally investigate or prosecute any alcohol or drug abuse patient.[facility] HospitalIn the event this information is protected by the Federal Confidentiality of Alcohol and Drug Abuse Patient Records regulations: The Federal rules restrict any use of the information to criminally investigate or prosecute any alcohol or drug abuse patient.[facility] HospitalIn the event this information is protected by the Federal Confidentiality of Alcohol and Drug Abuse Patient Records regulations: The Federal rules restrict any use of the information to criminally investigate or prosecute any alcohol or drug abuse patient.[facility] HospitalIn the event this information is protected by the Federal Confidentiality of Alcohol and Drug Abuse Patient Records regulations: The Federal rules restrict any use of the information to criminally investigate or prosecute any alcohol or drug abuse patient.[facility] HospitalIn the event this information is protected by the Federal Confidentiality of Alcohol and Drug Abuse Patient Records regulations: The Federal rules restrict any use of the information to criminally investigate or prosecute any alcohol or drug abuse patient.[facility] HospitalIn the event this information is protected by the Federal Confidentiality of Alcohol and Drug Abuse Patient Records regulations: The Federal rules restrict any use of the information to criminally investigate or prosecute any alcohol or drug abuse patient.[facility] HospitalIn the event this information is protected by the Federal Confidentiality of Alcohol and Drug Abuse Patient Records regulations: The Federal rules restrict any use of the information to criminally investigate or prosecute any alcohol or drug abuse patient.[facility] HospitalIn the event this information is protected by the Federal Confidentiality of Alcohol and Drug Abuse Patient Records regulations: The Federal rules restrict any use of the information to criminally investigate or prosecute any alcohol or drug abuse patient.[facility] HospitalIn the event this information is protected by the Federal Confidentiality of Alcohol and Drug Abuse Patient Records regulations: The Federal rules restrict any use of the information to criminally investigate or prosecute any alcohol or drug abuse patient.[facility] HospitalIn the event this information is protected by the Federal Confidentiality of Alcohol and Drug Abuse Patient Records regulations: The Federal rules restrict any use of the information to criminally investigate or prosecute any alcohol or drug abuse patient.[facility] HospitalIn the event this information is protected by the Federal Confidentiality of Alcohol and Drug Abuse Patient Records regulations: The Federal rules restrict any use of the information to criminally investigate or prosecute any alcohol or drug abuse patient.[facility] HospitalIn the event this information is protected by the Federal Confidentiality of Alcohol and Drug Abuse Patient Records regulations: The Federal rules restrict any use of the information to criminally investigate or prosecute any alcohol or drug abuse patient.[facility] HospitalIn the event this information is protected by the Federal Confidentiality of Alcohol and Drug Abuse Patient Records regulations: The Federal rules restrict any use of the information to criminally investigate or prosecute any alcohol or drug abuse patient.[facility] HospitalIn the event this information is protected by the Federal Confidentiality of Alcohol and Drug Abuse Patient Records regulations: The Federal rules restrict any use of the information to criminally investigate or prosecute any alcohol or drug abuse patient.[facility] HospitalIn the event this information is protected by the Federal Confidentiality of Alcohol and Drug Abuse Patient Records regulations: The Federal rules restrict any use of the information to criminally investigate or prosecute any alcohol or drug abuse patient.[facility] HospitalIn the event this information is protected by the Federal Confidentiality of Alcohol and Drug Abuse Patient Records regulations: The Federal rules restrict any use of the information to criminally investigate or prosecute any alcohol or drug abuse patient.[facility] HospitalIn the event this information is protected by the Federal Confidentiality of Alcohol and Drug Abuse Patient Records regulations: The Federal rules restrict any use of the information to criminally investigate or prosecute any alcohol or drug abuse patient.[facility] HospitalIn the event this information is protected by the Federal Confidentiality of Alcohol and Drug Abuse Patient Records regulations: The Federal rules restrict any use of the information to criminally investigate or prosecute any alcohol or drug abuse patient.[facility] HospitalIn the event this information is protected by the Federal Confidentiality of Alcohol and Drug Abuse Patient Records regulations: The Federal rules restrict any use of the information to criminally investigate or prosecute any alcohol or drug abuse patient.[facility] HospitalIn the event this information is protected by the Federal Confidentiality of Alcohol and Drug Abuse Patient Records regulations: The Federal rules restrict any use of the information to criminally investigate or prosecute any alcohol or drug abuse patient.[facility] HospitalIn the event this information is protected by the Federal Confidentiality of Alcohol and Drug Abuse Patient Records regulations: The Federal rules restrict any use of the information to criminally investigate or prosecute any alcohol or drug abuse patient.[facility] HospitalIn the event this information is protected by the Federal Confidentiality of Alcohol and Drug Abuse Patient Records regulations: The Federal rules restrict any use of the information to criminally investigate or prosecute any alcohol or drug abuse patient.[facility] HospitalIn the event this information is protected by the Federal Confidentiality of Alcohol and Drug Abuse Patient Records regulations: The Federal rules restrict any use of the information to criminally investigate or prosecute any alcohol or drug abuse patient.[facility] HospitalIn the event this information is protected by the Federal Confidentiality of Alcohol and Drug Abuse Patient Records regulations: The Federal rules restrict any use of the information to criminally investigate or prosecute any alcohol or drug abuse patient.[facility] HospitalIn the event this information is protected by the Federal Confidentiality of Alcohol and Drug Abuse Patient Records regulations: The Federal rules restrict any use of the information to criminally investigate or prosecute any alcohol or drug abuse patient.[facility] HospitalIn the event this information is protected by the Federal Confidentiality of Alcohol and Drug Abuse Patient Records regulations: The Federal rules restrict any use of the information to criminally investigate or prosecute any alcohol or drug abuse patient.[facility] HospitalIn the event this information is protected by the Federal Confidentiality of Alcohol and Drug Abuse Patient Records regulations: The Federal rules restrict any use of the information to criminally investigate or prosecute any alcohol or drug abuse patient.[facility] HospitalIn the event this information is protected by the Federal Confidentiality of Alcohol and Drug Abuse Patient Records regulations: The Federal rules restrict any use of the information to criminally investigate or prosecute any alcohol or drug abuse patient.[facility] HospitalIn the event this information is protected by the Federal Confidentiality of Alcohol and Drug Abuse Patient Records regulations: The Federal rules restrict any use of the information to criminally investigate or prosecute any alcohol or drug abuse patient.[facility] HospitalIn the event this information is protected by the Federal Confidentiality of Alcohol and Drug Abuse Patient Records regulations: The Federal rules restrict any use of the information to criminally investigate or prosecute any alcohol or drug abuse patient.[facility] HospitalIn the event this information is protected by the Federal Confidentiality of Alcohol and Drug Abuse Patient Records regulations: The Federal rules restrict any use of the information to criminally investigate or prosecute any alcohol or drug abuse patient.[facility] HospitalIn the event this information is protected by the Federal Confidentiality of Alcohol and Drug Abuse Patient Records regulations: The Federal rules restrict any use of the information to criminally investigate or prosecute any alcohol or drug abuse patient.[facility] HospitalIn the event this information is protected by the Federal Confidentiality of Alcohol and Drug Abuse Patient Records regulations: The Federal rules restrict any use of the information to criminally investigate or prosecute any alcohol or drug abuse patient.[facility] Care Teams (unrecognized sec tion and content) Team Status: Active Member Role Status Dates Out of Town Doctor Primary Care Provider Active Team Status: Active Member Role Status Dates No Primary Care Physician Primary Care Provider Active Dr. Lul Singh , DO Emergency Provider Active Dr. Vamsi Duvall , DO Admit Provider, Other Provid er Active Dr. Dangelo Encarnacion , DO Attending Provider, Other Provider Active Team Status: Active Member Role Status Dates [facility], [facility] Primary Care Provider Active Dr. Alexandro Garces MD Emergency Provider Active Dr. Vita Jefferson MD Admit Provider, Attending Provider, Other Provider Active Team Status: Inactive Member Role Status Dates No Primary Care Physician Primary Care Provider Active Dr. Lul Singh , DO Emergency Provider Active Dr. Vamsi Duvall DO Admit Provider, Other Provid er Active Dr. Dangelo Encarnacion , DO Attending Provider Active Team Status: Inactive Member Role Status Dates No Primary Care Physician Primary Care Provider Active Dr. Marc Carl , DO Attending Provider, Emergency P rovider Active Team Status: Inactive Member Role Status Dates Dr. Greg Philip , DO Attending Provider, Emergency P rovider Active FUN[facility]IL[facility]O, [facility] Primary Care Provider Active Team Status: Inactive Member Role Status Dates [facility]O, [facility] Primary Care Provider Active Dr. Rm Chirinos MD Attending Provider, Emergency Provi benjie Active Team Status: Inactive Member Role Status Dates [facility]O, [facility] Primary Care Provider Active Dr. Edwin Scales MD Attending Provider, Emergency Provider Active Team Status: Inactive Member Role Status Dates [facility], [facility] Primary Care Provider Active Dr. Olvin Ibarra DO Attending Provider, Emergency Provide r Active Team Status: Inactive Member Role Status Dates No Primary Care Physician Primary Care Provider Active Juan Marquez MD Attending Provider, Emergency Provid er Active Team Status: Inactive Member Role Status Dates Out of Town Doctor Primary Care Provider Active Dr. Lin Johansen MD Emergency Provider Active Team Status: Inactive Member Role Status Dates [facility]O, [facility] Primary Care Provider Active Dr. Alexandro Garces MD Emergency Provider Active Dr. Vita Jefferson MD Admit Provider, Attending Prov ider Active Team Status: Active Member Role Status [facility] Provider Active Team Status: Inactive Member Role Status Dates No Primary Care Physician Primary Care Provider Active Dr. Siddharth Herrera MD Attending Provider, Emergency Pr ovider Active Team Status: Inactive Member Role Status Dates [facility] Primary Care Provider Active Dr. Rm Chirinos MD Emergency Provider Active Team Status: Inactive Member Role Status Dates [facility]IL[facility]O, [facility] Primary Care Provider Active Dr. Edwin Scales MD Emergency Provider Active Team Status: Inactive Member Role Status Dates No Primary Care Physician Primary Care Provider Active Dr. Greg Philip DO Attending Provider, Emergency P rovibenjie Active Team Status: Active Member Role Status Dates No Primary Care Physician Primary Care Provider Active Team Status: Active Member Role Status Dates No Primary Care Physician Primary Care Provider Active Dr. Lin Johansen MD Emergency Provider Active Dr. David Smith MD Admit Provi benjie, Attending Provider, Other Provider Active Team Status: Active Member Role Status Dates No Primary Care Physician Primary Care Provider Active Dr. Lin Johansen MD Emergency Provider Active Dr. David Smith MD Admit Provider, Other Pro vider Active Dr. Vincenzo Castañeda MD Attending Provider Active Team Status: Active Member Role Status Dates No Primary Care Physician Primary Care Provider Active Dr. Lin Johansen MD Emergency Provider Active Dr. David Smith MD Admit Provider, Other Pro vider Active Dr. Ileana Lobo MD Attending Provider, Other Provid er Active Team Status: Inactive Member Role Status Dates Dr. Greg Philip DO Emergency Provider Active No Primary Care Physician Primary Care Provider Active Team Status: Inactive Member Role Status Dates No Primary Care Physician Primary Care Provider Active Dr. Loki Soria DO Emergency Provider Active Team Status: Inactive Member Role Status Dates No Primary Care Physician Primary Care Provider Active Dr. Lin Johansen MD Emergency Provider Active Dr. David Smith MD Admit Provider, Other Pro vider Active Dr. Ileana Lobo MD Attending Provider Active Manager Lpn Relationship Specialty Start Date End Date Alfredo Mccullough [address] Sr[address] [place] [address] PCP - General Family Practice 12/31/19 Latosha Johnson LSW [employer] 12/10/14 Vamsi Cohen MD Primary Staff Physician Cardiology 11/13/18 Manager Lpn Relationship Specialty Start Date End Date Jamel, [facility]. [address] [place], [place] PCP - General Family Practice 12/31/19 Latosha Johnson [employer]AIC TILE MAK[employer] 12/10/14 Vamsi Cohen MD Primary Staff Physician Cardiology 11/13/18 Manager Lpn Relationship Specialty Start Date End Date Jamel, [facility]. [address] [place], [place] PCP - General Family Practice 12/31/19 Latosha Johnson [employer] 12/10/14 Vamsi Cohen MD Primary Staff Physician Cardiology 11/13/18 Manager Lpn Relationship Specialty Start Date End Date Jamel, [facility]. [address] [place], [place] PCP - General Family Practice 12/31/19 Latosha Johnson [employer] MAK[employer] G[employer] 12/10/14 Vamsi Cohen MD Primary Staff Physician Cardiology 11/13/18 Manager Lpn Relationship Specialty Start Date End Date [facility]. [address] [place], [place] PCP - General Family Practice 12/31/19 Latosha Johnson, [employer] 12/10/14 Vamsi Cohen MD Primary Staff Physician Cardiology 11/13/18 Manager Lpn Relationship Specialty Start Date End Date Paul, COMPUTER SYSTEMS TECHNOLOGY INSTRUCTOR.TECHNICAL PROGRAMS MANAGER [address] [facility] [place], [place] PCP - General Family Practice 03/08/22 Latosha Johnson, [facility] Grape [employer]utter 12/10/14 Vamsi Cohen MD Primary Staff Physician Cardiology 11/13/18 Manager Lpn Relationship Specialty Start Date End Date Paul, COMPUTER SYSTEMS TECHNOLOGY INSTRUCTOR.TECHNICAL PROGRAMS MANAGER [address] [facility] [place] PCP - General Family Practice 03/08/22 JohnsonLatosha khan, [facility] [employer] 12/10/14 Vamsi Cohen MD Primary Staff Physician Cardiology 11/13/18 Manager Lpn Relationship Specialty Start Date End Date Paul, COMPUTER SYSTEMS TECHNOLOGY INSTRUCTOR.TECHNICAL PROGRAMS MANAGER [address] [facility] [place] PCP - General Family Practice 03/08/22 Latosha Johnson, [facility] [employer] 12/10/14 Vamsi Cohen MD Primary Staff Physician Cardiology 11/13/18 Manager Lpn Relationship Specialty Start Date End Date Paul, COMPUTER SYSTEMS TECHNOLOGY INSTRUCTOR.TECHNICAL PROGRAMS MANAGER [address] [facility] [place] PCP - General Family Practice 03/08/22 Latosha Johnson, [facility] G[employer] 12/10/14 Vamsi Cohen MD Primary Staff Physician Cardiology 11/13/18 Manager Lpn Relationship Specialty Start Date End Date Dashawn, COMPUTER SYSTEMS TECHNOLOGY INSTRUCTOR.TECHNICAL PROGRAMS MANAGER [address] [facility] [place] PCP - General Family Practice 03/08/22 Latosha Johnson LSW [employer] 12/10/14 Vamsi Cohen MD Primary Staff Physician Cardiology 11/13/18 Manager Lpn Relationship Specialty Start Date End Date eliseoPaul, COMPUTER SYSTEMS TECHNOLOGY INSTRUCTOR.TECHNICAL PROGRAMS MANAGER [address] [place], [place] PCP - General Family Practice 03/08/22 Latosha Johnson LSW [employer] 12/10/14 Vamsi Cohen MD Primary Staff Physician Cardiology 11/13/18 Manager Lpn Relationship Specialty Start Date End Date eliseoPaul, COMPUTER SYSTEMS TECHNOLOGY INSTRUCTOR.TECHNICAL PROGRAMS MANAGER [address] [place], [place] PCP - General Family Practice 03/08/22 Latosha Johnson [employer] 12/10/14 Vamsi Cohen MD Primary Staff Physician Cardiology 11/13/18 Manager Lpn Relationship Specialty Start Date End Date eliseoDashawn, COMPUTER SYSTEMS TECHNOLOGY INSTRUCTOR.TECHNICAL PROGRAMS MANAGER [address] [place] [address] PCP - General Family Practice 03/08/22 Latosha Johnson, [facility] Grape [employer]utter 12/10/14 Vamsi Cohen MD Primary Staff Physician Cardiology 11/13/18 Manager Lpn Relationship Specialty Start Date End Date Paul, COMPUTER SYSTEMS TECHNOLOGY INSTRUCTOR.TECHNICAL PROGRAMS MANAGER [address] [place] [address] PCP - General Family Practice 03/08/22 Latosha Johnson LSW [employer] 12/10/14 Vamsi Cohen MD Primary Staff Physician Cardiology 11/13/18 Manager Lpn Relationship Specialty Start Date End Date Dashawn Cain, COMPUTER SYSTEMS TECHNOLOGY INSTRUCTOR.TECHNICAL PROGRAMS MANAGER [address] [place] [place] PCP - General Family Practice 03/08/22 Latosha Johnson [facility] Grape [employer]utter 12/10/14 Vamsi Cohen MD Primary Staff Physician Cardiology 11/13/18 Manager Lpn Relationship Specialty Start Date End Date Alfredo Mccullough [place] Sr. [address] [place] PCP - General Family Medicine 12/31/19 03/07/22 Dashawn Cain, COMPUTER SYSTEMS TECHNOLOGY INSTRUCTOR.TECHNICAL PROGRAMS MANAGER [address] [facility] [place] [facility] - General Family Medicine 03/08/22 Latosha Johnson [facility] Grape [employer]utter 12/10/14 Vamsi Cohen MD Primary Staff Physician Cardiology 11/13/18 Manager Lpn Relationship Specialty Start Date End Date Dashawn Cain, COMPUTER SYSTEMS TECHNOLOGY INSTRUCTOR.TECHNICAL PROGRAMS MANAGER [address] [place], [place] PCP - General Family Medicine 03/08/22 Latosha Johnson [facility] Grape [employer]utter 12/10/14 Vamsi Cohen MD Primary Staff Physician Cardiology 11/13/18 Manager Lpn Relationship Specialty Start Date End Date Dashawn Cain, COMPUTER SYSTEMS TECHNOLOGY INSTRUCTOR.TECHNICAL PROGRAMS MANAGER [address] [place], [place] PCP - General Family Medicine 03/08/22 Latosha Johnson, [facility] Grape [employer]utter 12/10/14 Vamsi Cohen MD Primary Staff Physician Cardiology 11/13/18 Manager Lpn Relationship Specialty Start Date End Date DelfinDashawn, COMPUTER SYSTEMS TECHNOLOGY INSTRUCTOR.TECHNICAL PROGRAMS MANAGER [address] [facility] [place] [address] PCP - General Family Medicine 03/08/22 Latosha Johnson, [facility] Grape [employer] 12/10/14 Vamsi Cohen MD Primary Staff Physician Cardiology 11/13/18 Manager Lpn Relationship Specialty Start Date End Date DelfinPaul, COMPUTER SYSTEMS TECHNOLOGY INSTRUCTOR.TECHNICAL PROGRAMS MANAGER [address] [place] [address] PCP - General Family Medicine 03/08/22 Latosha Johnson, [facility] Grape Cutter 12/10/14 Vamsi Cohen MD Primary Staff Physician Cardiology 11/13/18 Manager Lpn Relationship Specialty Start Date End Date DelfinDashawn, COMPUTER SYSTEMS TECHNOLOGY INSTRUCTOR.TECHNICAL PROGRAMS MANAGER [address] [facility] [place] [address] PCP - General Family Medicine 03/08/22 Latosha Johnson, [facility] Grape Cutter 12/10/14 Vamsi Cohen MD Primary Staff Physician Cardiology 11/13/18 Manager Lpn Relationship Specialty Start Date End Date DelfinDashawn, COMPUTER SYSTEMS TECHNOLOGY INSTRUCTOR.TECHNICAL PROGRAMS MANAGER [address] [facility] [place] [address] PCP - General Family Medicine 03/08/22 Latosha Johnson, [facility] Grape [employer]utter 12/10/14 Vamsi Cohen MD Primary Staff Physician Cardiology 11/13/18 Manager Lpn Relationship Specialty Start Date End Date DelfinDashawn, COMPUTER SYSTEMS TECHNOLOGY INSTRUCTOR.TECHNICAL PROGRAMS MANAGER [address] [place] [address] PCP - General Family Medicine 03/08/22 Latosha Johnson [facility] Grape [employer]utter 12/10/14 Vamsi Cohen MD Primary Staff Physician Cardiology 11/13/18 Manager Lpn Relationship Specialty Start Date End Date Dashawn, COMPUTER SYSTEMS TECHNOLOGY INSTRUCTOR.TECHNICAL PROGRAMS MANAGER [address] [place] PCP - General Family Medicine 03/08/22 Latosha Johnson [facility] Grape [employer] 12/10/14 Vamsi Cohen MD Primary Staff Physician Cardiology 11/13/18 Manager Lpn Relationship Specialty Start Date End Date Dashawn, COMPUTER SYSTEMS TECHNOLOGY INSTRUCTOR.TECHNICAL PROGRAMS MANAGER [address] [facility] [place] PCP - General Family Medicine 03/08/22 Latosha Johnson [facility] Grape [employer]utter 12/10/14 Vamsi Cohen MD Primary Staff Physician Cardiology 11/13/18 Manager Lpn Relationship Specialty Start Date End Date DelfinDashawn, COMPUTER SYSTEMS TECHNOLOGY INSTRUCTOR.TECHNICAL PROGRAMS MANAGER [address] [facility] [place] PCP - General Family Medicine 03/08/22 Latosha Johnson [facility] G[employer]utter 12/10/14 Vamsi Cohen MD Primary Staff Physician Cardiology 11/13/18 Manager Lpn Relationship Specialty Start Date End Date PaytonDashawn, COMPUTER SYSTEMS TECHNOLOGY INSTRUCTOR.TECHNICAL PROGRAMS MANAGER PCP - General Family Medicine 03/08/22 Latosha Johnson LSW [employer] 12/10/14 Vamsi Cohen MD Primary Staff Physician Cardiology 11/13/18 Manager Lpn Relationship Specialty Start Date End Date RhetteliseoDashawn, COMPUTER SYSTEMS TECHNOLOGY INSTRUCTOR.TECHNICAL PROGRAMS MANAGER PCP - General Family Medicine 03/08/22 Latosha Johnson LSW [employer] 12/10/14 Vamsi Cohen MD Primary Staff Physician Cardiology 11/13/18 Manager Lpn Relationship Specialty Start Date End Date Latosha Johnson [facility] G[employer] 12/10/14 Vamsi Cohen MD Primary Staff Physician Cardiology 11/13/18 Manager Lpn Relationship Specialty Start Date End Date Vivi Smith MD [address] [place] [id number] PCP - General Family Medicine 12/08/22 Latosha Johnson [facility] G[employer] 12/10/14 Vamsi Cohen MD Primary Staff Physician Cardiology 11/13/18 Manager Lpn Relationship Specialty Start Date End Date Vivi Smith MD [address] [place] [id number] PCP - General Family Medicine 12/08/22 Latosha Johnson, [employer] MAK[employer] 12/10/14 Vamsi Cohen MD Primary Staff Physician Cardiology 11/13/18 Manager Lpn Relationship Specialty Start Date End Date Vivi Smith MD [facility] [place] [address] PCP - General Family Medicine 12/08/22 Latosha Johnson, [facility] Grape Cutter 12/10/14 Vamsi Cohen MD Primary Staff Physician Cardiology 11/13/18 Manager Lpn Relationship Specialty Start Date End Date Vivi Smith MD [facility] [place] [address] PCP - General Family Medicine 12/08/22 Latosha Johnson, [facility] G[facility] 12/10/14 Vamsi Cohen MD Primary Staff Physician Cardiology 11/13/18 Manager Lpn Relationship Specialty Start Date End Date Vivi Smith MD [address] [place] [address] [id number] PCP - General Family Medicine 12/08/22 Latosha Johnson, [facility] Grape C[facility] 12/10/14 Vamsi Cohen MD Primary Staff Physician Cardiology 11/13/18 Manager Lpn Relationship Specialty Start Date End Date Vivi Smith MD [facility] [place] [address] PCP - General Family Medicine 12/08/22 Latosha Johnson, [facility] Grape Cutter 12/10/14 Vamsi Cohen MD Primary Staff Physician Cardiology 11/13/18 Manager Lpn Relationship Specialty Start Date End Date Vivi Smith MD [address] [place] [address] [phone] PCP - General Family Medicine 12/08/22 Latosha Johnson, [facility] G[facility] 12/10/14 Vamsi Cohen MD Primary Staff Physician Cardiology 11/13/18 Manager Lpn Relationship Specialty Start Date End Date Vivi Smith MD [address] [place] [address] [phone] PCP - General Family Medicine 12/08/22 Latosha Johnson, [employer] Grape Cutter 12/10/14 Vamsi Cohen MD Primary Staff Physician Cardiology 11/13/18 Manager Lpn Relationship Specialty Start Date End Date Dashawn Cain, COMPUTER SYSTEMS TECHNOLOGY INSTRUCTOR.TECHNICAL PROGRAMS MANAGER PCP - General Family Medicine 03/08/22 11/06/22 Vivi Smith MD [address] [place] [address] [phone] PCP - General Family Medicine 12/08/22 Latosha Johnson, [facility] G[facility] 12/10/14 Vamsi Cohen MD Primary Staff Physician Cardiology 11/13/18 Manager Lpn Relationship Specialty Start Date End Date Vivi Smith MD [address] [place] [address] [phone] PCP - General Family Medicine 12/08/22 Latosha Johnson, [facility] Grape [facility]utter 12/10/14 Vamsi Cohen MD Primary Staff Physician Cardiology 11/13/18 Manager Lpn Relationship Specialty Start Date End Date Vivi Smith MD [address] [place] [address] [id number] PCP - General Family Medicine 12/08/22 Latosha Johnson LSW Grape [employer] 12/10/14 Vamsi Cohen MD Primary Staff Physician Cardiology 11/13/18 Manager Lpn Relationship Specialty Start Date End Date No, Physician [facility] PCP - General 03/20/23 Team Status: Active Member Role Status Dates No Primary Care Physician Primary Care Provider Active Dr. Lin Johansen MD Emergency Provider Active Dr. David Smith MD Admit Provider, Attending Provider Active Manager Lpn Relationship Specialty Start Date End Date Alfredo Mccullough MD [address] [place] [address] [phone] PCP - General 01/18/21 Team Status: Inactive Member Role Status Dates Dr. Greg Philip DO Attending Provider, Emergency P neida Active No Primary Care Physician Primary Care Provider Active Team Status: Inactive Member Role Status Dates No Primary Care Physician Primary Care Provider Active Dr. Marc Carl , Emergency Provider Active Manager Lpn Relationship Specialty Start Date End Date Vivi Smith MD [address] [place] [address] [phone] PCP - General Family Medicine 12/08/22 Latosha Johnson LSW Grape [employer] 12/10/14 Vamsi Cohen MD Primary Staff Physician Cardiology 11/13/18 Team Status: Active Member Role Status Dates No Primary Care Physician Primary Care Provider Active Dr. Lin Johansen MD Emergency Provider Active Dr. David Smith MD Admit Provider, Other Pro vider Active Dr. Vincenzo Castañeda MD Active Dr. Ileana Lobo MD Attending Provider Active Team Status: Inactive Member Role Status Dates No Primary Care Physician Primary Care Provider Active Dr. Loki Soria DO Attending Provider, Emergency Pro vider Active Team Status: Inactive Member Role Status Dates No Primary Care Physician Primary Care Provider Active Dr. Greg Philip , DO Emergency Provider Active Team Status: Inactive Member Role Status Dates No Primary Care Physician Primary Care Provider Active Dr. Siddharth Herrera MD Emergency Provider Active Team Status: Inactive Member Role Status Dates No Primary Care Physician Primary Care Provider Active Juan Marquez MD Emergency Provider Active Team Status: Active Member Role Status Dates No Primary Care Physician Primary Care Provider Active Dr. Lul Singh , DO Emergency Provider Active Dr. Vamsi Duvall , DO Admit Provider, Attending Pr ovider Active Manager Lpn Relationship Specialty Start Date End Date Vivi Smith MD [address] [place] [address] [phone] PCP - General Family Medicine 12/08/22 Latosha Johnson, [employer] G[employer] 12/10/14 Vamsi Cohen MD Primary Staff Physician Cardiology 11/13/18 Manager Lpn Relationship Specialty Start Date End Date [facility] [address] [place] [address] [phone] PCP - General 08/15/23 Manager Lpn Relationship Specialty Start Date End Date Vivi Smith MD [address] [place] [address] [phone] PCP - General Family Medicine 12/08/22 Latosha Johnson, MICHELLE [facility] 12/10/14 Vamsi Cohen MD Primary Staff Physician Cardiology 11/13/18 Manager Lpn Relationship Specialty Start Date End Date Vivi Smith MD [address] [place] [address] [phone] PCP - General Family Medicine 12/08/22 Latosha Johnson, MICHELLE [employer] 12/10/14 Vamsi Cohen MD Primary Staff Physician Cardiology 11/13/18 Manager Lpn Relationship Specialty Start Date End Date Vivi Smith MD [address] [place] [address] [phone] PCP - General Family Medicine 12/08/22 JohnsonLatosha reddy, [facility] G[facility] 12/10/14 Vamsi Cohen MD Primary Staff Physician Cardiology 11/13/18 Kyara Luis, telephone solicitor supervisorOpera Singer 10/12/23 Team Status: Active Member Role Status Dates SARAH MELLO Primary Care Provider Active Dr. Alexandro Garces MD Emergency Provider Active Dr. iVta Jefferson MD Admit Provider, Attending Prov ider Active Manager Lpn Relationship Specialty Start Date End Date Vivi Smith MD [address] [place] [address] [phone] PCP - General Family Medicine 12/08/22 Latosha Johnson, [facility] G[facility] [employer] 12/10/14 Vamsi Cohen MD Primary Staff Physician Cardiology 11/13/18 Kyara Luis, telephone solicitor supervisorOpera Singer 10/12/23 Kyara Luis RN Primary Care Temporary Staff Accountant 10/19/23 Manager Lpn Relationship Specialty Start Date End Date Gracie Godoy [address] [place] [address] [phone] PCP - General 08/15/23 Team Status: Inactive Member Role Status Dates Out of Town Doctor Primary Care Provider Active Dr. Lin Johansen MD Attending Provider, Emergency Provider Active Team Status: Inactive Member Role Status Dates Out of Town Doctor Primary Care Provider Active Ed Physician Provider Emergency Provider Active Manager Lpn Relationship Specialty Start Date End Date Vivi Smith MD [address] [place] [address] [phone] PCP - General Family Medicine 12/08/22 Latosha Johnson, [employer] Grape [employer]utter 12/10/14 Vamsi Cohen MD Primary Staff Physician Cardiology 11/13/18 Kyara Luis telephone solicitor supervisorOpera Singer 10/12/23 Manager Lpn Relationship Specialty Start Date End Date [facility] [address] [place] [address] PCP - General 08/15/23 Manager Lpn Relationship Specialty Start Date End Date [facility] [address] [place] [address] PCP - General 08/15/23 Manager Lpn Relationship Specialty Start Date End Date Vivi Smith MD [address] [place] [address] [phone] PCP - General Family Medicine 12/08/22 Latosha Johnson, [employer] G[employer] 12/10/14 Vamsi Cohen MD Primary Staff Physician Cardiology 11/13/18 Kyara Luis, telephone solicitor supervisorOpera Singer 10/12/23 Manager Lpn Relationship Specialty Start Date End Date Vivi Smith MD [address] [place] [address] [phone] PCP - General Family Medicine 12/08/22 Latosha Johnson, MICHELLE [employer] 12/10/14 Vamsi Choen MD Primary Staff Physician Cardiology 11/13/18 Kyara Luis, telephone solicitor supervisorOpera Singer 10/12/23 Manager Lpn Relationship Specialty Start Date End Date Vivi Smith MD [address] [place] [address] [phone] PCP - General Family Medicine 12/08/22 Latosha Johnson, [employer] G[employer] 12/10/14 Vamsi Cohen MD Primary Staff Physician Cardiology 11/13/18 Kyara Luis, telephone solicitor supervisorOpera Singer 10/12/23 Manager Lpn Relationship Specialty Start Date End Date Vivi Smith MD [address] [place] [address] [phone] PCP - General Family Medicine 12/08/22 Latosha Johnson, [employer] G[employer] 12/10/14 Vamsi Cohen MD Primary Staff Physician Cardiology 11/13/18 Kyara Luis, telephone solicitor supervisorOpera Singer 10/12/23 Manager Lpn Relationship Specialty Start Date End Date [facility] [address] [place] [address] PCP - General 08/15/23 Manager Lpn Relationship Specialty Start Date End Date [facility] [address] [place] [address] PCP - General 08/15/23 Manager Lpn Relationship Specialty Start Date End Date Vivi Smith MD [address] [place] [address] [phone] PCP - General Family Medicine 12/08/22 Latosha Johnson, [employer] Grape Cutter 12/10/14 Vamsi Cohen MD Primary Staff Physician Cardiology 11/13/18 Kyara Luis, telephone solicitor supervisorOpera Singer 10/12/23 Manager Lpn Relationship Specialty Start Date End Date Vivi Smith MD [address] [place] [address] [phone] PCP - General Family Medicine 12/08/22 Latosha Johnson, [facility] Grape Cutter 12/10/14 Vamsi Cohen MD Primary Staff Physician Cardiology 11/13/18 Kyara Luis, telephone solicitor supervisorOpera Singer 10/12/23 Manager Lpn Relationship Specialty Start Date End Date Vivi Smith MD [address] [place] [address] [phone] PCP - General Family Medicine 12/08/22 Latosha Johnson, [facility] Grape [facility]utter 12/10/14 Vamsi Cohen MD Primary Staff Physician Cardiology 11/13/18 Kyara Luis, telephone solicitor supervisorOpera Singer 10/12/23 Manager Lpn Relationship Specialty Start Date End Date Vivi Smith MD [address] [place], [place] [phone] PCP - General Family Medicine 12/08/22 Latosha Johnson, [facility] Grape Cutter 12/10/14 Vamsi Cohen MD Primary Staff Physician Cardiology 11/13/18 Kyara Luis, telephone solicitor supervisorOpera Singer 10/12/23 Manager Lpn Relationship Specialty Start Date End Date Vivi Smith MD [address] [place] [address] [phone] PCP - General Family Medicine 12/08/22 Latosha Johnson LSW Grape [employer]utter 12/10/14 Vamsi Cohen MD Primary Staff Physician Cardiology 11/13/18 Kyara Luis telephone solicitor supervisorOpera Singer 10/12/23 Manager Lpn Relationship Specialty Start Date End Date Vivi Smith MD [address] [place] [address] [phone] PCP - General Family Medicine 12/08/22 Latosha Johnson, MICHELLE [employer] 12/10/14 Vamsi Cohen MD Primary Staff Physician Cardiology 11/13/18 Kyara Luis telephone solicitor supervisorOpera Singer 10/12/23 Manager Lpn Relationship Specialty Start Date End Date Alfredo Mccullough MD [address] [place] [phone] PCP - General 01/18/21 Manager Lpn Relationship Specialty Start Date End Date Alfredo Mccullough MD [address] [place] [address] [phone] PCP - General 01/18/21 Manager Lpn Relationship Specialty Start Date End Date Vivi Smith MD [address] [place] [address] [phone] PCP - General Family Medicine 12/08/22 Latosha Johnson, [employer] MAK[employer] Grape Cutter 12/10/14 Vamsi Cohen MD Primary Staff Physician Cardiology 11/13/18 Gohlke, Kyara S, telephone solicitor supervisorOpera Singer 10/12/23 Manager Lpn Relationship Specialty Start Date End Date Vivi Smith MD [address] [place], [place] [phone] PCP - General Family Medicine 12/08/22 Latosha Johnson, [facility] Grape Cutter 12/10/14 Vamsi Cohen MD Primary Staff Physician Cardiology 11/13/18 Kyara Luis, telephone solicitor supervisorOpera Singer 10/12/23 Manager Lpn Relationship Specialty Start Date End Date Vivi Smith MD [address] [place] [address] PCP - General Family Medicine 12/08/22 Latosha Johnson, [facility] Grape Cutter 12/10/14 Vamsi Cohen MD Primary Staff Physician Cardiology 11/13/18 Kyara Luis, telephone solicitor supervisorOpera Singer 10/12/23 Manager Lpn Relationship Specialty Start Date End Date Vivi Smith MD [address] [place] [address] PCP - General Family Medicine 12/08/22 Latosha Johnson, [facility] Grape Cutter 12/10/14 Vamsi Cohen MD Primary Staff Physician Cardiology 11/13/18 Kyara Luis, telephone solicitor supervisorOpera Singer 10/12/23 Manager Lpn Relationship Specialty Start Date End Date Vivi Smith MD [address] [place], [place] [phone] PCP - General Family Medicine 12/08/22 Latosha Johnson, [facility] Grape Cutter 12/10/14 Vamsi Cohen MD Primary Staff Physician Cardiology 11/13/18 Kyara Luis, telephone solicitor supervisorOpera Singer 10/12/23 Manager Lpn Relationship Specialty Start Date End Date Vivi Smith MD [address] [place] [address] [phone] PCP - General Family Medicine 12/08/22 Latosha Johnson [facility] Grape [facility]utter 12/10/14 Vamsi Cohen MD Primary Staff Physician Cardiology 11/13/18 Kyara Luis, telephone solicitor supervisorOpera Singer 10/12/23 Manager Lpn Relationship Specialty Start Date End Date Vivi Smith MD [address] [place] [address] [phone] PCP - General Family Medicine 12/08/22 Latosha Johnson, [facility] Grape Cutter 12/10/14 Vamsi Cohen MD Primary Staff Physician Cardiology 11/13/18 Kyara Luis, telephone solicitor supervisorOpera Singer 10/12/23 Manager Lpn Relationship Specialty Start Date End Date [facility] [address] [place] [address] PCP - General 08/15/23 Manager Lpn Relationship Specialty Start Date End Date [facility] [address] [place] [address] PCP - General 08/15/23 Reason for Visit (unrecogniz ed section and content) Reason Comments approval letter insulin aspart U-100 (NOVOLOG U-100 INSULIN ASPART) 100 unit/mL Reason Comments Patient Question Reason Comments [facility] office notes request/CGM Сергей a Reason Comments Acute Visit She has been having issues with her periods. Last one lasted 63 days. Would like to be tested for STD's. Has bumps on cervix that she was told that it was blocked pores. Reason Onset Date Comments Refill Request 05/02/2022 Reason Onset Date Comments Refill Request 05/02/2022 Linzess Reason Comments Results Orders Specialty Diagnoses / Procedures Referred By Ajay cobb Referred To Contact [employer] MARKETING [employer] Diagnoses STD exposure ROCEPHIN INJECTION - GONORRHEA Procedures INJECTION , Phoebe Richter, COMPUTER SYSTEMS TECHNOLOGY INSTRUCTOR.TECHNICAL PROGRAMS MANAGER [address] [place] [address] Phoebe, COMPUTER SYSTEMS TECHNOLOGY INSTRUCTOR.TECHNICAL PROGRAMS MANAGER [address] [place] [address] Referral ID Status Reason Start Date Expiration Date V isits Requested Visits Authorized [id number] Closed Benefit Check 05/10/2022 08/27/2022 1 1 Reason Comments Appointment Reason Comments STD JASON Reason Comments Forms [facility] Reason Comments Rodrigue LMN for insulin pump/pump suppli es Reason Comments Insulin Dependent Diabetes Mellitus Reason Comments Follow Up Reason Comments [facility] form Reason Comments Medication Problem Reason Comments Abdominal Pain Cramps Started yeste rday morning Bleeding and jimmy clotsLeft side pain feels like something is stabbing & sharp pain Back Pain Lower left back pain started yesterday morning 9am Head Pain Left-side Reason Comments Forms Reason Comments Swelling Around Left Eye Pain,yesterday Reason Comments New Patient To establish care. Reason Comments Patient Question Reason Comments Orders Reason Comments Results Reason Comments High Blood Sugar Reason Comments Insurance Authorization Forms Reason Onset Date Comments Transition Of Care 02/08/2023 Reason Comments Abdominal Pain Emesis Specialty Diagnoses / Procedures Referred By Ajay cobb Referred To Contact Diagnoses Ketonuria Bradycardia Nausea & vomiting Hyperglycemia Abdominal pain, unspecified abdominal location Chest pain, unspecified type Nausea and vomiting, unspecified vomiting type Referral ID Status Reason Start Date Expiration Date Visits Re quested Visits Authorized [id number] 1 1 Reason Onset Date Comments Med Refill 05/02/2023 Reason Comments High Blood Sugar Reason Onset Date Comments Transition Of Care 08/15/2023 Reason Onset Date Comments 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 09/29/2023 Reason Onset Date Comments Refill Request 09/21/2023 Reason Comments Forms DME: [facility] for pump gleason pplies Reason Onset Date Comments 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 10/12/2023 Reason Onset Date Comments Transition Of Care 10/19/2023 Message Reason Onset Date Comments Transition Of Care 10/20/2023 Reason Onset Date Comments Transition Of Care 10/27/2023 Reason Onset Date Comments Transition Of Care 11/03/2023 Reason Onset Date Comments Transition Of Care 11/10/2023 Reason Comments Psoriasis (PKN) Reason Onset Date Comments 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 12/15/2023 Reason Onset Date Comments Medication Problem 01/23/2024 Rayray Reason Comments Medication Problem Returning Patient's Call Reason Comments machine question Reason Comments Insulin Dependent Diabetes Mellitus Reason Onset Date Comments Refill Request 04/08/2024 Reason Comments Med Refill Reason Onset Date Comments Prior Authorization 05/06/2024 Rayray crum Reason Comments insulin pump Reason Comments diabetic supplies Reason Comments Well Woman Specialty Diagnoses / Procedures Referred By Contac t Referred To Contact Diagnoses Type 1 diabetes mellitus with hyperglycemia, with long-term current use of insulin (HCC) Insulin pump status Procedures CONSULT TO DIABETES EDUCATION DSME MEDICAL NUTRITION ASSMT&IVNTJ INDIV EACH 15 [place] MEDICAL NUTRITION ASSMT&IVNTJ INDIV EACH 15 [place] MEDICAL NUTRITION ASSMT&IVNTJ INDIV EACH 15 [place] MEDICAL NUTRITION ASSMT&IVNTJ INDIV EACH 15 OK Kvng Lewis MD [address] [place] [address] Referral ID Status Reason Start Date Expiration Date V isits Requested Visits Authorized [id number] Closed PCP Requested Referral 03/12/2024 03/12/2025 1 1 Reason Onset Date Comments Prior Authorization 08/07/2024 Rayray crum Reason Comments Psoriasis LV 02/07/22 Reason Comments Constipation Nausea Reason Comments Patient states having major issues Reason Comments Recheck F/u visit with abdom inal discomfort x 4 weeks Reason Onset Date Comments Appointment Request 12/19/2024 rayray Reason Comments Skin Lesion (PKN) Scheduled Active and Recently Administ ered Medications (unrecognized section and content) Medication Order 03/20/2023 03/21/2023 03/22/2023 dextrose (GLUTOSE) 40 % gel 15 g (COMPLETED) 15 g, Oral, Once, On Mon03/22/23 at 0500, For 1 dose, Per Hypoglycemia Protocol: Blood Sugar: less than or equal to 50 mg/dL. Patient Condition: patient is ALERT, ABLE to swallow/eat and NOT NPO. Intervention: Administer oral glucose gel (15 grams carbohydrate) to swallow. 0405 (Given - Provider: Liang Boothe RN) enoxaparin (LOVENOX) syringe 40 mg 40 mg, Subcutaneous, Daily, First dose on Mon03/20/23 at 1235, Administer in abdomen unless otherwise directed by prescriber. Notify physician if patient refuses., Indication: VTE Prophylaxis 1235 (Not Given - Provider: Zee Chahal RN - Reason: Patient/family refused) 0944 (Given - Provider: Omari Bradley RN) 0925 (Given - Provider: Alta Teague RN) heparin, porcine (PF) injection 500 Units (COMPLETED) 500 Units, Intravenous, Once, On Mon03/22/23 at 1645, For 1 dose 1609 (Given - Provider: Alta Teague, STIVEN) HYDROmorphone (DILAUDID) injection 0.25 mg (COMPLETED) 0.25 mg, Intravenous, Once, On Mon03/20/23 at 1235, For 1 dose 1257 (Given - Provider: Zee Chahal RN) insulin lispro (AdmeLOG,HumaLOG) injection 0-30 Units (CANCELED) 0-30 Units, Subcutaneous, 3 times daily before meals, First dose on Mon03/20/23 at 1230, Dose should be given 10-15 minutes before a meal. If poor oral intake, nausea or blood glucose value < 80 before meal, give of the dose (rounded up to nearest unit) immediately after meal completed. If patient skipping meal, hold base prandial dose and continue to use corrective insulin as ordered. Once diet resumed, total base prandial + corrective doses may be given., Prandial Insulin Dosing Method: NO Prandial Dose - Corrective Scale ONLY, Corrective Insulin Regimen (select desired scale to cover BG result): Normal Sensitivity Scale, For Downtime Calculator, use: Insulin SC MEALtime PREprandial 1238 (Given - Provider: Zee Chahal, STIVEN)1813 (Given - Provider: Liang Purcell, STIVEN) 0730 (Not Given - Provider: Omari Bradley RN - Reason: Patient/family refused)1130 (Not Given - Provider: Omari Bradley RN - Reason: Patient/family refused) pantoprazole (PROTONIX) injection 40 mg 40 mg, Intravenous, 2 times daily, First dose on Mon03/20/23 at 1410, Dilute each vial with 10 mL of 0.9% NaCl. 181 (Given - Provider: Liang Purcell, RN)2100 (Not Given - Provider: Liang Boothe, STIVEN - Reason: Contraindicated - Comment: Too soon to previosu dose administration, pharmacy stated to hold and give 9am dose.) 0944 (Given - Provider: Omari Bradley RN)2106 (Given - Provider: Liang Boothe, STIVEN) 09 (Given - Provider: Alta Teague RN) potassium chloride SA (K-DUR,KLOR-CON) CR tablet 40 mEq (COMPLETED) 40 mEq, Oral, Once, On Mon03/22/23 at 0945, For 1 dose, DO NOT CRUSH OR CHEW (if instructed may dissolve tablet(s) in liquid) DO NOT ADMINISTER DISSOLVED TABLET VIA SURGICALLY PLACED TUBE OR TUBE less than 14 Botswanan. To administer dissolved tablet(s) mix with 4 ounces of water over 2-3 minutes, stir for 30 seconds prior to administration; rinse dosing cup and administer residual medication to ensure full dose given 923 (Given - Provider: Alta Teague RN) prochlorperazine (COMPAZINE) injection 10 mg (COMPLETED) 10 mg, Intravenous, Once, On Mon03/20/23 at 0310, For 1 dose, If IV, give slow IV push at a rate not exceeding 5 mg/minute and remain lying down for 30 minutes to reduce risk of hypotension. If IM, inject deep into outer buttocks quadrant. 031 (Given - Provider: Tony Hernandez RN - Comment: power port) promethazine (PHENERGAN) suppository 12.5 mg (COMPLETED) 12.5 mg, Rectal, Once, On Mon03/21/23 at 0000, For 1 dose 2324 (Given - Provider: Liang Boothe RN) sodium chloride (PF) (NS) flush 5 mL(Linked Group 1) 5 mL, Intravenous, Every 8 hours scheduled, First dose on Mon03/20/23 at 1400, Saline lock 1400 (Not Given - Provider: Zee Chahal RN - Reason: Other - Comment: INFUSING)2200 (Not Given - Provider: Liang Boothe RN - Reason: Other - Comment: IV infusing) 0600 (Not Given - Provider: Liang Boothe RN - Reason: Other - Comment: PRN given)1400 (Not Given - Provider: Omari Bradley RN - Reason: Patient/family refused)2200 (Not Given - Provider: Liang Boothe RN - Reason: Other - Comment: PRN dose use to flush med) 0539 (Given - Provider: Liang Boothe RN)1400 (Not Given - Provider: Alta Teague RN - Reason: Loss of IV access) sodium chloride 0.9% (NS) bolus 1,000 mL (COMPLETED) 1,000 mL, Intravenous, at 983.6 mL/hr, Once, On Mon03/20/23 at 0925, For 1 dose 0925 (New Bag - Provider: Zee Chahal RN)1026 (Stopped - Provider: Zee Chahal RN) sodium chloride 0.9% (NS) bolus 500 mL (COMPLETED) 500 mL, Intravenous, at 967.7 mL/hr, Once, On Mon03/20/23 at 0500, For 1 dose 0510 (New Bag - Provider: Zee Mcdonald RN)0541 (Stopped - Provider: Zee Mcdonald RN) sucralfate (CARAFATE) tablet 1 g 1 g, Oral, 4 times daily before meals, First dose on Mon03/20/23 at 1630, Administer on an empty stomach. Do not administer antacids within 30 minutes of administration of sucralfate. In general, separate administration of other oral medications and sucralfate by at least 2 hours Enteral feed should be stopped at least 1 hour before dose and not re-started for 1 hour post-dose. A longer break may be prudent in patients with delayed gastric emptying. 1809 (Not Given - Provider: Liang Purcell RN - Reason: Other - Comment: pt nauseated)2100 (Not Given - Provider: Liang Boothe RN - Reason: Patient/family refused - Comment: Pt stated they do not feel well and don't think they would tolerate oral pills at this time. Pt given education about the medication and why she was prescribed it. Pt declines.) 0544 (Given - Provider: Liang Boothe, RN)1150 (Given - Provider: Omari Bradley, RN)1823 (Given - Provider: Omari Bradley RN)2100 (Not Given - Provider: Liang Boothe RN - Reason: Other - Comment: too soon to previous administration) 0538 (Given - Provider: Liang Boothe, STIVEN)1148 (Given - Provider: Alta Teague RN)1630 (Due) Continuous Medication Order 03/20/2023 03/21/2023 03/22/2023 lactated Ringers infusion () 100 mL/hr, Intravenous, Continuous, Starting on Mon03/20/23 at 1235, For 10 hours 1235 (New Bag - Provider: Zee Chahal RN)1805 (New Bag - Provider: Sixto Mercado RN)2300 (Stopped - Provider: Liang Boothe RN) subcutaneous insulin pump Misc Miscellaneous, Continuous, Starting on Mon03/21/23 at 1245, Select Insulin Product in Pump: lispro (HUMALOG), Specify Number of Different Basal Rates per 24hr: 1, Starting Time: 12:00 AM, Basal Rate (units / hr): 1.8, Prandial Bolus Method: Carbohydrate Ratio (1 unit of insulin per specified grams of carbs), Breakfast (1 unit of insulin per specified number of carbs): 10, Lunch (1 unit of insulin per specified number of carbs): 10, Dinner (1 unit of insulin per specified number of carbs): 10, For meals when blood glucose (BG) is greater than: 150, Add: 1 unit per specified mg / dL, (specify per pump setting): 30 1245 (Not Given - Provider: Omari Bradley RN - Reason: Patient/family refused) PRN Medication Order 03/20/2023 03/21/2023 03/22/2023 acetaminophen (TYLENOL) tablet 650 mg 650 mg, Oral, Every 4 hours PRN, mild pain, fever 100.4 F or greater, headaches, Starting on Mon03/20/23 at 1132 1927 (Given - Provider: Liang Boothe RN) iopamidoL (ISOVUE-370) 370 mg iodine /mL (76 %) injection 75 mL (COMPLETED) 75 mL, Intravenous, Once in imaging, contrast, Starting on Mon03/20/23 at 0551, For 1 dose 0803 (Contrast Administered - Provider: Kaylyn Alvarado, TECHNOLOGIST) melatonin tablet 3 mg 3 mg, Oral, Nightly PRN, Sleep, Starting on Mon03/20/23 at 1133 naloxone (NARCAN) injection 0.1 mg(Linked Group 2) 0.1 mg, Intravenous, As needed, opioid reversal, For respiratory rate less than or equal to 8 per minute., Starting on Mon03/20/23 at 1231, Mix nalOXone (NARCAN) 0.4 mg (1mL) with 9 mL of Normal Saline to total 10 mL. Administer 0.1 mg (2.5mL) IV Push every 2 minutes until respiratory rate is 10 or greater. naloxone (NARCAN) injection 0.4 mg(Linked Group 2) 0.4 mg, Intravenous, As needed, opioid reversal, patient is pulseless, breathless, and unresponsive, Starting on Mon03/20/23 at 1231, Call a code first, then administer naloxone dose undiluted IV Push over 30 seconds. prochlorperazine (COMPAZINE) injection 10 mg 10 mg, Intravenous, Every 6 hours PRN, nausea, vomiting, Starting on Mon03/20/23 at 2308, If IV, give slow IV push at a rate not exceeding 5 mg/minute and remain lying down for 30 minutes to reduce risk of hypotension. If IM, inject deep into outer buttocks quadrant. 2313 (Given - Provider: Liang Boothe, STIVEN) 0544 (Given - Provider: Liang Boothe RN)1150 (Given - Provider: Omari Bradley RN)1927 (Given - Provider: Liang Boothe, RN) 0429 (Given - Provider: Liang Boothe, STIVEN) prochlorperazine (COMPAZINE) injection 5 mg (CANCELED) 5 mg, Intravenous, Every 6 hours PRN, nausea, vomiting, Starting on Mon03/20/23 at 1231, If IV, give slow IV push at a rate not exceeding 5 mg/minute and remain lying down for 30 minutes to reduce risk of hypotension. If IM, inject deep into outer buttocks quadrant. 1757 (Given - Provider: Sixto Mercado RN)2307 ([facility] - Provider: Liang Boothe, STIVEN) promethazine (PHENERGAN) suppository 12.5 mg 12.5 mg, Rectal, Every 6 hours PRN, nausea, vomiting, Starting on Mon03/21/23 at 1006 sodium chloride (PF) (NS) 0.9 % contrast line flush 10 mL (COMPLETED) 10 mL, Intravenous, Once in imaging, contrast, Per marble machine tender (Radiology) for line patency check prior to contrast administration, Starting on Mon03/20/23 at 0551, For 1 dose 0806 (Given - Provider: Kaylyn Alvarado, TECHNOLOGIST) sodium chloride (PF) (NS) 0.9 % contrast line flush 80 mL (COMPLETED) 80 mL, Intravenous, Once in imaging, contrast, Per marble machine tender (Radiology), Starting on Mon03/20/23 at 0551, For 1 dose, 30 mL BEFORE contrast administration 50 mL AFTER contrast administration 0804 (Given - Provider: Kaylyn Alvarado, TECHNOLOGIST) sodium chloride (PF) (NS) flush 5 mL(Linked Group 3) 5 mL, Intravenous, As needed, line care, Starting on Mon03/20/23 at 0222 sodium chloride (PF) (NS) flush 5 mL(Linked Group 1) 5 mL, Intravenous, As needed, line care, Starting on Mon03/20/23 at 1130 sodium chloride 0.9% (NS)(Linked Group 3) 0-150 mL/hr, Intravenous, As needed, To flush line after IV infusions when no maintenance IV ordered or a compatibility issue. Infuse 20ml at the same rate as the secondary infusion, Starting on Mon03/20/23 at 0222, Run as Primary IV. NOT intended for KVO. sodium chloride 0.9% (NS)(Linked Group 1) 0-150 mL/hr, Intravenous, As needed, To flush line after IV infusions when no maintenance IV ordered or a compatibility issue. Infuse 20ml at the same rate as the secondary infusion, Starting on Mon03/20/23 at 1130, Run as Primary IV. NOT intended for KVO. Linked Groups Order Group 1: Saline lock IV (CANCELED) Routine, Continuous, Starting on Mon03/20/23 at 1131, Until Specified And sodium chloride (PF) (NS) flush 5 mLJump to med 5 mL, Intravenous, As needed, line care, Starting on Mon03/20/23 at 1130 And sodium chloride (PF) (NS) flush 5 mLJump to med 5 mL, Intravenous, Every 8 hours scheduled, First dose on Mon03/20/23 at 1400
Saline lock
And sodium chloride 0.9% (NS)Jump to med 0-150 mL/hr, Intravenous, As needed, To flush line after IV infusions when no maintenance IV ordered or a compatibility issue. Infuse 20ml at the same rate as the secondary infusion, Starting on Mon03/20/23 at 1130
Run as Primary IV. NOT intended for KVO.
Group 2: naloxone (NARCAN) injection 0.1 mgJump to med 0.1 mg, Intravenous, As needed, opioid reversal, For respiratory rate less than or equal to 8 per minute., Starting on Mon03/20/23 at 1231
Mix nalOXone (NARCAN) 0.4 mg (1mL) with 9 mL of Normal Saline to total 10 mL. Administer 0.1 mg (2.5mL) IV Push every 2 minutes until respiratory rate is 10 or greater.
And Notify physician (CANCELED) STAT, Until discontinued, Starting on Mon03/20/23 at 1232, Until Specified
Respiratory rate less than: 8
For respiratory rate less than or equal to 8, notify physician and/or appropriate staff for additional orders. And naloxone (NARCAN) injection 0.4 mgJump to med 0.4 mg, Intravenous, As needed, opioid reversal, patient is pulseless, breathless, and unresponsive, Starting on Mon03/20/23 at 1231
Call a code first, then administer naloxone dose undiluted IV Push over 30 seconds.
Group 3: Insert peripheral IV (COMPLETED) SIRI, Once, On Mon03/20/23 at 0223, For 1 occurrence And Saline lock IV (CANCELED) SIRI, Once, On Mon03/20/23 at 0223, For 1 occurrence And sodium chloride (PF) (NS) flush 5 mLJump to med 5 mL, Intravenous, As needed, line care, Starting on Mon03/20/23 at 0222 And sodium chloride 0.9% (NS)Jump to med 0-150 mL/hr, Intravenous, As needed, To flush line after IV infusions when no maintenance IV ordered or a compatibility issue. Infuse 20ml at the same rate as the secondary infusion, Starting on Mon03/20/23 at 0222
Run as Primary IV. NOT intended for KVO.
Goals (unrecognized section and content) Goals may be documented in a n alternate section FOR RECORDS PERTAINING TO PATIENTS WHO ARE OR HAVE BEEN ENROLLED IN A CHEMICAL DEPENDENCY/SUBSTANCEABUSE PROGRAM, SOME INFORMATION MAY BE OMITTED. This clinical summary was aggregated from multiple sources. Caution should be exercised in using it in the provision of clinical care. This summary normalizes information from multiple sources, and as a consequence, information in this document may materially change the coding, format and clinical context of patient data. In addition, data may be omitted in some cases. CLINICAL DECISIONS SHOULD BE BASED ON THE PRIMARY CLINICAL RECORDS. [employer] provides no warranty or guarantee of the accuracy or completeness of information in this document.
[2025-03-17 21:53] VITALS: BP 108/55; PULSE 122; RESP 23; O2SAT 98
[2025-03-17] MEDS: Insulin Lispro 100 UNIT in 0.9% Normal Saline (100mL Bag) 99 ML 7.1 UNIT CONT INF (22:16)
[2025-03-17 22:21] VITALS: TEMP 37.1
[2025-03-17 22:38] LABS: Differential Comment SCANNED
[2025-03-17 22:40] LABS: BETA-HYDROXYBUTYRATE 9.3 mmol/L (0.0-0.3)
[2025-03-17 23:00] VITALS: BP 102/77; PULSE 145; RESP 22
--- NOTE | 2025-03-17 23:28 | PCM.HP.STD ---
HPI - General General Date of Admission: 03/17/25 Date of Service: 03/17/25 Chief Complaint: Diabetic ketoacidosis HPI Narrative THEODORE VILLA, is a 29 F who presents to the emergency room with elevated blood sugar. Patient has a significant past medical history of type 1 diabetes and frequent encounters in the hospital for diabetic ketoacidosis. Patient reported feeling nausea and vomiting earlier today and was seen and evaluated and sent to the emergency room for further treatment. Initial laboratory studies reveal white blood cell count of 34,000 with a hemoglobin of 14, hematocrit 42.5, platelets 188, venous blood gas of 7.15, sodium 128, potassium 5.4, chloride 84, bicarb 6, BUN 17, creatinine 1.18, blood glucose level 561 with an anion gap of 37. Patient received fluid boluses and IV insulin in the emergency room and hospitalist service was called for admission. Patient will be admitted to the intensive care unit for treatment of DKA. [facility] Medical History (Updated 03/17/25 @ 23:[address] Siddharth Saucedo MD) DKA, type 1 Insulin dependent diabetes mellitus Wears glasses Marijuana use Syncope Gastroparesis Electronic cigarette use History of echocardiogram History of stress test Cardiology follow-up encounter Metabolic acidosis Vomiting delivery delivered History of marijuana use Hx of diabetic gastroparesis Diabetes mellitus with hyperglycemia Intractable cyclical vomiting with nausea Depression Compensated metabolic acidosis Dysuria UTI (urinary tract infection) Hypokalemia Type 1 diabetes Metabolic acidosis Leukocytosis Intractable abdominal pain Intractable nausea and vomiting Panic disorder Major depressive disorder, recurrent severe without psychotic features Diabetic gastroparesis Substance abuse Kidney stones Kidney disease Smoker Intractable vomiting Type 1 diabetes Marfan syndrome PTSD (post-traumatic stress disorder) Borderline personality disorder Home Medications ?Medication ?Instructions ?Recorded ?Last Taken ?Type pen needle, diabetic 29 gauge x #100 ea 08/10/23 Unknown Rx 1/2 (Ultra-Thin II Insulin Pen [place]) risankizumab-rzaa 150 mg/mL 150 mg subcut .[id number] PSORIASIS 02/07/24 02/03/25 History subcutaneous pen injector (Skyrizi) Insulin Basal Pump (Pt's Own) 1.8 unit subcut UD diabetes ##0 06/11/24 03/05/25 Rx [Pump, Basal] albuterol sulfate 90 mcg/actuation 1 - 2 puff inhalation Q4H PRN PRN 08/01/24 Unknown Rx aerosol inhaler (Ventolin HFA) Wheezing ##1 doxepin 6 mg tablet 6 mg PO QHS insomnia 10/18/24 03/04/25 History promethazine 25 mg tablet 50 mg PO Q6H PRN nausea and 10/18/24 Unknown History vomiting quetiapine 50 mg tablet,extended 50 mg PO QHS mood 10/18/24 03/04/25 History release 24 hr cholecalciferol (vitamin D3) 1,250 1,250 mcg PO QWEEK 12/14/24 02/26/25 History mcg (50,000 unit) capsule plecanatide 3 mg tablet (Trulance) 3 mg PO DAILY 12/14/24 03/02/25 History haloperidol 5 mg tablet 5 mg PO TID PRN nausea and 12/16/24 03/04/25 Rx vomiting #20 tabs gabapentin 300 mg capsule 600 mg PO BID 01/08/25 03/04/25 History insulin lispro 100 unit/mL See Rx Instructions .Route 01/26/25 03/05/25 Rx subcutaneous solution (Humalog .COMPLEX #10 mL U-100 Insulin) prochlorperazine maleate 10 mg 10 mg PO TID PRN PRN 03/03/25 Unknown History tablet nausea/vomiting Allergy/AdvReac Type Severity Reaction Status Date / Time adhesive tape Allergy Intermediate Rash Verified 03/17/25 19:58 cephalexin (From Keflex) Allergy Intermediate yeast Verified 03/17/25 19:58 infection morphine Allergy Intermediate Rash Verified 03/17/25 19:58 oxycodone (From Percocet) Allergy Intermediate Rash Verified 03/17/25 19:58 ondansetron AdvReac I BLACK Verified 03/17/25 19:58 OUT AND LOSE CONTROL OF MY BLADDER Family History Mother Anxiety and depression Bipolar disorder PCOS (polycystic ovarian syndrome) Father Valvular heart disease Surgical History H/O tubal ligation History of loop recorder Hx of appendectomy Hx of eye surgery H/O aortic root repair Social History household members: spouse Smoking Status: Current every day smoker tobacco type: e-cigarettes Electronic Cigarette Use: with nicotine alcohol intake: never substance use type: marijuana ROS Constitutional Constitutional: Denies chills or fever(s) Eyes Eyes: Denies blurry vision ENT HEENT: Denies abnormal hearing Cardiovascular Cardiovascular: Denies chest pain Respiratory/Chest Respiratory/Chest: Denies cough Gastrointestinal Gastrointestinal: Reports nausea and vomiting Genitourinary Genitourinary: Denies dysuria Musculoskeletal Musculoskeletal: Denies back pain Integumentary Integumentary: Denies dry skin Neurologic Neurologic: Denies abnormal gait Psychiatric Psychiatric: Denies anxiety Vital Signs Vital Signs Vital Signs: 03/17/25 19:55 03/17/25 21:53 03/17/25 22:21 Temperature 96.4 F L 98.7 F Temperature Source Temporal Oral Pulse Rate 135 H 122 H Respiratory Rate 18 23 H Blood Pressure 124/54 H 108/55 L Blood Pressure Mean 77 72 Pulse Ox 97 98 Oxygen Delivery Method Room Air Room Air 03/17/25 23:00 Temperature Temperature Source Pulse Rate 145 H Respiratory Rate 22 H Blood Pressure 102/77 Blood Pressure Mean 85 Pulse Ox Oxygen Delivery Method Weight Weight: 156 lb 4.924 oz Body Mass Index (BMI) 23.1 Physical Exam Const alert Orientation / Consciousness: confused and lethargic HEENT normocephalic and head/scalp atraumatic Eyes PERRL Neck no lymphadenopathy Lymph Lymphatic: no lymphadenopathy noted Resp normal air movement and clear to auscultation bilaterally Effort and Inspection: tachypneic Cardio regular rhythm, S1 normal heart sound and S2 normal heart sound Rate: tachycardic GI normal to inspection, nondistended, normoactive bowel sounds Extremity normal capillary refill Skin General Skin Exam: no breakdown Neuro no focal motor deficits and no sensory deficits noted Psych Psych Narrative: Sluggish to respond Results Lab / Micro Data 03/17/25 20:40 03/17/25 20:40 Labs: Laboratory Results - last 24 hr 03/17/25 20:40: WBC 34.1 H*, RBC 4.69, Hgb 14.0, Hct 42.5, MCV 90.6, MCH 29.9, MCHC 32.9, RDW Std Deviation 42.9, RDW Coeff of Joyce 13.2, Plt Count 188, MPV 12.7 H, Immature Gran % (Auto) 4.200 H, Neut % (Auto) 90.2 H, Lymph % (Auto) 2.8 L, [place] % (Auto) 2.7, Eos % (Auto) 0.0, Baso % (Auto) 0.1, Absolute Neuts (auto) 30.8 H, Absolute Lymphs (auto) 0.94, Nucleated RBC % 0, Differential Comment SCANNED, Diff Path Review December, Platelet Estimate ADEQUATE, Sodium 128 L 03/17/25 20:40: Sodium Cancelled, Potassium 5.4 H 03/17/25 20:40: Potassium Cancelled, Chloride 84 L 03/17/25 20:40: Chloride Cancelled, Carbon Dioxide 6.0 L* 03/17/25 20:40: Carbon Dioxide Cancelled, Anion Gap 37 H 03/17/25 20:40: Anion Gap Cancelled, BUN 17 03/17/25 20:40: BUN Cancelled, Creatinine 1.18 03/17/25 20:40: Creatinine Cancelled, Estim Creat Clear Calc 72.85, Est GFR (MDRD) Non-Af 64 03/17/25 20:40: Est GFR (MDRD) Non-Af Cancelled, BUN/Creatinine Ratio 14.1 03/17/25 20:40: BUN/Creatinine Ratio Cancelled, Glucose 561 H* 03/17/25 20:40: Glucose Cancelled, Calcium 9.7 03/17/25 20:40: Calcium Cancelled, Total Bilirubin 0.74, AST 18, ALT 18, Alkaline Phosphatase 123 H, Total Protein 7.6, Albumin 5.0, Globulin 2.7, Albumin/Globulin Ratio 1.9, Lipase 10 L, b-Hydroxybutyric mmol/L 9.3 H, Serum , Qual NEGATIVE ABG Data ABG results: ABG 03/17/25 20:44 Specimen Type ISABELLE Sample Site Not entered VBG pH 7.15 L* VBG pO2 55 H VBG HCO3 6 L VBG Total CO2 7 L VBG O2 Sat (Calc) 80 H VBG Base Excess -23 L POC Mix VBG pCO2 Pt Tmp 17.3 L* O2 Delivery Device Room Air Crit Call To/Read Back Yes Blood Gas Notified Whom Garces Blood Gas Notified Time 20:45:58 Imaging Radiology Impression Chest X-Ray 03/17/25 21:42 IMPRESSION: Mild pulmonary vascular congestion. No focal consolidations. Reading Location: [facility] Assessment & Plan Assessment/Plan (1) Leukocytosis: (2) Hx of diabetic gastroparesis: (3) Diabetic keto-acidosis: PLAN: Plan 1 Diabetic ketoacidosis?admit patient to intensive care unit consult ICU urban sociologist, initiate DKA protocol including insulin drip. Will monitor BMPs and await closure of anion gap. Continue Zofran and Compazine as needed for nausea and vomiting. Continue IV fluids per routine protocol, 2. Leukocytosis, no source identified will monitor for fever and check urinalysis to identify source of possible infection. 3. DVT prophylaxis?low molecular weight heparin 4. Consult case management for discharge planning and recurrent admissions for diabetic ketoacidosis to assist with identifying barriers to this patient maintaining adequate care of themselves as an outpatient. Charges/Coding Visit Charges Inpatient E&M: 38468 Init Hosp L2
--- OUTSIDE RECORDS SUMMARY | 2025-03-17 23:47 | XMS RPT_ITS | CCD ---
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 Name Role Phone MEDICAL, CLINIC Unavailable Unavailable TEACH, MTS LUCY Unavailable Unavailable VAMSI MARRUFO Unavailable Unavailable MEDICAL, CLINIC Unavailable Unavailable Latosha Castro Unavailable Unavailab Vamsi Zaidi MD Unavailable [facility] Primary Care Provi benjie PHYSICIAN, PATIENT UNSURE Primary Care Physician Unavailable Kamwesa FAMILY PROGRAM SPECIALIST.Dashawn MALAVE Primary Care Provider Vamsi Cohen MD Unavailable Kamwesa FAMILY PROGRAM SPECIALIST.Dashawn MALAVE Primary Care Provider Vamsi Cohen MD Unavailable [facility] Care Provi benjie Kamwesa FAMILY PROGRAM SPECIALIST.Dashawn MALAVE Primary Care Provider Latosha Castro Unavailable Unavailab Vamsi Zaidi MD Unavailable [phone] Kamwesa FAMILY PROGRAM SPECIALIST.Dashawn MALAVE Primary Care Provider Kamwesa FAMILY PROGRAM SPECIALIST.Dashawn MALAVE Primary Care Provider Vivi Smith MD Primary Care Provider Kamwesa FAMILY PROGRAM SPECIALIST.Dashawn MALAVE Primary Care Provider No, Physician Primary [...] Attending Provider Dr. Ileana Lobo Other Provider aJmel LOCKE, Alfredo Primary Care Provider Vamsi Cohen MD Unavailable Dr. Ileana Lobo Attending Provider Care Physician, No Primary Primary Care Provider Unavailable Dr. Lin Johansen Emergency Provider Dr. David Smith Admit Provider Dr. David Smith Attending Provider Dr. David Smith Other Provider Dr. Ileana Lobo Attending Provider Dr. Ileana Lobo Other Provider [facility] Primary Care Provider Unav ailDr. Lul Ferrell Emergency Provider Dr. Vamsi Duvall Admit Provider Unavailabl e Dr. Vamsi Duvall Other Provider Unavailabl e Dr. Dangelo Encarnacion Attending Provider [phone] Dr. Dangelo Encarnacion Other Provider [phone] Care Physician, No Primary Primary Care Provider Unavailable Toby SALEEM, Kyara Richter Unavailable Unavailab FUNMILAYO Del Angel Primary Care Provider Dr. Alexandro Garces Emergency Provider Dr. Vita Jefferson Admit Provider [phone] Koram, Dr. Vita Rojas Attending Provider [phone] Koram, Dr. Vita Rojas Other Provider Toby SALEEM, Kyara Richter Unavailable Unavailab le Care Physician, No Primary Primary Care Provider Unavailable Dr. Lul Singh Emergency Provider Dr. Vamsi Duvall Admit Provider Unavailvera e Dr. Vamsi Duvall Other Provider Unavailabl e Alysha, Dr. Pierson Attending Provider Dr. Dangelo Encarnacion Other Provider FUNMILAYO SMITH Primary Care Provider [phone] Dr. Alexandro Garces Emergency Provider Koram, Dr. Vita Rojas Admit Provider Korismael, Dr. Vita Rojas Attending Provider Kor, Dr. Vita Rojas Other Provider SMITH, AHMAD KHPATRICIO Primary Care Unavailabl e GREG TALBOT Attending Unavailable MADONNA TORO Attending Unavailable SMITH, AHMAD KHPATRICIO Primary Care Unavailabl e MADONNA TORO Referring Unavailable SMITH, AHMAD KHPATRICIO Primary Care Unavailabl e SMITH, VIVI BARAHONA Attending Unavailabl e [facility] Primary Care Unavailabl e SMITH, AHLAFranklin BARAHONA Primary Care Unavailabl e SMITH, AHLAFranklin KHPATRICIO Primary Care Unavailabl e CAMILO CENTENO Admitting Unavailable DAVID BURNETT Attending Unavailable KVNG LEWIS Consulting Unavailable Sarah LOCKE, Vivi Barahona Primary Care Provider Jamel LOCKE, Alfredo Cobb Primary Care Provider Vamsi Cohen MD Unavailable LETICIA HYLTON Referring Unavailable SMITH, AHMAD KHPATRICIO Primary Care Unavailabl e SMITH, AHMAD KHPATRICIO Primary Care Unavailabl e ELTICIA HYLTON Attending Unavailable SMITH, AHMAD KHPATRICIO Primary Care Unavailabl e JESSICA GUERRERO Attending Unavailable SMITH, AHMAD KHARIS Primary Care UnavailKVNG Bush Attending Unavailable SMITH, AHMAD KHARIS Primary Care Unavailabl e JASON PAREDES Attending Unavailable SMITH, AHMAD KHARIS Primary Care Unavailabl e JASON PAREDES Referring Unavailable SMITH, AHMAD KHARIS Primary Care Unavailabl e JESSICA GUERRERO Attending Unavailable KVNG LEWIS Referring Unavailable SMITH, [facility] Primary Care Unavailabl e LETICIA HYLTON Attending Unavailable SMITH, AHMAD KHARIS Primary Care Unavailabl e MISHEL ORTEZ Attending Unavailable [facility] Primary Care Unavailable Care Physician, No [...] oxyCODONE Drug Allergy 4 Itching, Rash, Intolerance [facility] Adhesive Tape (1 source) Adhesive Tape Substance Allergy 4 Rash [facility] Cephalosporins (antibiotic) (2 sources) Cephalexin Drug Allergy 4 Other: See Comments [facility] NSAIDs (1 source) Indomethacin Drug Allergy 4 Rash [facility] Ondansetron (2 sources) Ondansetron Drug Allergy 5 Other: See Comments [facility] Opioid Agonists (2 sources) Morphine Drug Allergy 4 Itching, Rash [facility] (20 sources) Acetaminophen / oxyCODONE; Translations: [acetaminophen-ox ycodone] Drug Allergy 4 Rash, Intolerance, Itching [facility] (20 sources) Adhesive Tape; Translations: [ADHESIVE TAPE (ROSINS)] Allergy to substance 4 Rash [facility] (20 sources) Cephalexin; Translations: [cephalexin] Drug Allergy 4 Other: See Comments, Urinary tract infectious disease (disorder) [facility] Work Phone: (20 sources) Morphine; Translations: [morphine] Drug Allergy 4 Rash, Itching [facility] (20 sources) Ondansetron; Translations: [ONDANSETRON HCL (PF)] Drug Allergy 5 Other: See Comments, Other (See Comments) [facility] (1 source) Adhesive Tape Propensity to adverse reactions to substance Redness [facility] (20 sources) Ondansetron; Translations: [ondansetron] Drug Allergy 5 I BLACK OUT AND LOSE CONTROL OF MY BLADDER [facility] (20 sources) Adhesive agent; Translations: [ADHESIVE] Drug Allergy 3 [facility] (20 sources) Indomethacin; Translations: [INDOMETHACIN] Drug Allergy 4 [facility] (2 sources) Adhesive Tape-Silicones; Translations: [ADHESIVE TAPE-SILICONES] Propensity to adverse reactions to drug 3 [facility] (1 source) Ondansetron; Translations: [ONDANSETRON HCL] Drug Allergy 3 [facility] (2 sources) Acetaminophen Drug Allergy 3 [facility] (15 sources) Adhesive Tape; Translations: [adhesive tape] Allergy to substance 3 [facility] (15 sources) oxyCODONE Drug Allergy 3 Itching, [facility] (1 source) Acetaminophen Drug Allergy 3 Itching, Rash [facility] (1 source) Wound Dressing Adhesive Drug Allergy 3 [facility] (1 source) Cephalexin Drug Allergy 5 [facility] Repository (1 source) Morphine Drug Allergy 5 [facility] Rep[facility] (1 source) Ondansetron Drug Allergy 5 [facility] Repository (1 source) oxyCODONE Drug Allergy 5 [facility] Repository Medications Current Medications Medication Drug Class(es) Dates Sig (Normalized) Sig (Original) acetaminophen 325 mg / HYDROcodone bitartrate 5 mg oral tablet (2 sources) Opioid Agonist Start: 10-21-2024 take 1 tablet by mouth every six hours as needed for pain HYDROcodone-aceta minophen ([place]) 5-325 MG tablet TAKE 1 TABLET BY [...] Active Comment on above: Use as directed [id number] 200 actuat albuterol 0.09 mg/actuat metered dose [...] Comment on above: Take 2 tablets by [facility] once daily for 1 day. benzoyl [...] 12-09-2024 cholecalcifero l (Vitamin D-3) 1.25 MG (45376 UT) capsule Take by mouth 1 (one) [...] / neomycin 3.5 mg/ml / polymyxin b 60120 unt/ml ophthalmic suspension (1 source) Aminoglycoside Antibacterial, [...] long-term current use of insulin ([facility]) , Insulin pump status Inject [...] type 1, controlled, without complications ([facility]) Please inject three times a [...] long-term current use of insulin ([facility]) Use in the Insulin Pump [...] Comment on above: Take 1 capsule by [facility] twice daily with meals. metoclopramide 5 [...] of central line, initial encounter ([facility]) 2 mL by INTRALUMINAL route [...] long-term current use of insulin ([facility]) , Insulin pump status Use 1 [place] in the nose as needed for low [...] subcutaneously for insulin shock. 250.03 Use 1 [place] in the n ose as needed for [...] Comment on above: Take 1 capsule by [facility] once daily. Administer on an empty [...] current use of drug therapy; Translations: [Other technician terminal and repeater (current) drug therapy] 01-27-2025 Episodic Other aftercare (2 sources) Other correction (current) drug therapy; Translations: [Other correction (current) drug therapy] Onset: 01-27-2025 Episodic Other [...] 03-08-2025 FINGERSTICK GLU 252 mg/dL High 74-106 [facility] Comment on above: Result Comment: EDGAR GEMENT OF PATIENT CARE PER NURSING PROTOCOL Performed By: #### L 501.080 ####[facility] [address] [place], [place], [address] FINGERSTICK GLU 272 mg/dL High 74-106 [facility] Comment on above: Result Comment: EDGAR GEMENT OF PATIENT CARE PER NURSING PROTOCOL Performed By: #### L 501.080 ####[facility] [address] [place], [address] Basic Metabolic Profile (BMP )on 03-07-2025 BUN Normal 4-19 [facility] Comment on above: Result Comment: Canc elled via OM: MD Ordered Performed By: #### L 500.2500 ####[facility] [address] [place], [address] BUN/CRE Normal 10-20 [facility] Comment on above: Result Comment: Canc elled via OM: MD Ordered Performed By: #### L 500.2500 ####[facility] [address] [place], [address] Calcium Normal 7.6-11.0 [facility] Comment on above: Result Comment: Canc elled via OM: MD Ordered Performed By: #### L 500.2500 ####[facility] [address] [place], [address] CL Normal 98-108 [facility] Comment on above: Result Comment: Canc elled via OM: MD Ordered Performed By: #### L 500.2500 ####[facility] [address] [place], [address] CO2 Normal 21.0-32.0 [facility] Comment on above: Result Comment: Canc elled via OM: MD Ordered Performed By: #### L 500.2500 ####[facility] [address] [place], [address] CREAT,SERUM Normal 0.70-1.20 [facility] Comment on above: Result Comment: Canc elled via OM: MD Ordered Performed By: #### L 500.2500 ####[facility] [address] [place], [address] eGFR Normal >60 [facility] Comment on above: Result Comment: Canc elled via OM: MD Ordered Performed By: #### L 500.2500 ####[facility] [address] [place], [address] GAP Normal 5-15 [facility] Comment on above: Result Comment: Canc elled via OM: MD Ordered Performed By: #### L 500.2500 ####[facility] [address] [place], [address] GLU Normal 70-99 [facility] Comment on above: Result Comment: Canc elled via OM: MD Ordered Performed By: #### L 500.2500 ####[facility] [address] [place], [address] Potassium Normal 3.3-5.1 [facility] Comment on above: Result Comment: Canc elled via OM: MD Ordered Performed By: #### L 500.2500 ####[facility] [address] [place], [address] Basic Metabolic Profile (BMP) Normal 133-145 [facility] Comment on above: Result Comment: Canc elled via OM: MD Ordered Performed By: #### L 500.2500 ####[facility] [address] [place], [address] BUN/CRE 8.1 RATIO Low 10-20 [facility] Comment on above: Performed By: #### L 500.2500 ####[facility] [address] [place], [address] Calcium [Mass/Vol] 8.0 mg/dL Normal 7.6-11.0 [facility] Comment on above: Performed By: #### L 500.2500 ####[facility] [address] [place], [address] Chloride [Moles/Vol] 110 mmol/L High 98-108 [facility] Comment on above: Performed By: #### L 500.2500 ####[facility] [address] [place], [address] CO2 [Moles/Vol] 21.4 mmol/L Normal 21.0-32.0 [facility] Comment on above: Performed By: #### L 500.2500 ####[facility] [address] [place], [address] Creatinine [Mass/Vol] 0.58 mg/dL Low 0.70-1.20 [facility] Comment on above: Performed By: #### L 500.2500 ####[facility] [address] [place], [address] ECRCL 148.22 ml/min Normal 50-250 [facility] Comment on above: Performed By: #### L 500.2500 ####[facility] [address] [place], [address] GAP 8 Normal 5-15 [facility] Comment on above: Performed By: #### L 500.2500 ####[facility] [address] [place], [address] GFR/1.73 sq M.predicted among non-blacks MDRD (S/P/Bld) [Vol rate/Area] 125 mL/min/{1.73_m2} Normal >60 [facility] Comment on above: Result Comment: mL/m in/1.73m2 CKD-EPI Creatinine Equation (2020) Performed By: #### L 500.2500 ####[facility] [address] [place], [address] Glucose [Mass/Vol] 113 mg/dL High 70-99 [facility] Comment on above: Performed By: #### L 500.2500 ####[facility] [address] [place], [address] Potassium [Moles/Vol] 3.2 mmol/L Low 3.3-5.1 [facility] Comment on above: Performed By: #### L 500.2500 ####[facility] [address] [place], [address] Sodium [Moles/Vol] 139 mmol/L Normal 133-145 [facility] Comment on above: Performed By: #### L 500.2500 ####[facility] [address] [place], [address] Urea nitrogen [Mass/Vol] 5 mg/dL Normal 4-19 [facility] Comment on above: Performed By: #### L 500.2500 ####[facility] [address] [place], [address] BUN/CRE 9.9 RATIO Low 10-20 [facility] Comment on above: Performed By: #### L 500.2500 ####[facility] [address] [place], [address] Calcium [Mass/Vol] 8.2 mg/dL Normal 7.6-11.0 [facility] Comment on above: Performed By: #### L 500.2500 ####[facility] [address] [place], [address] Chloride [Moles/Vol] 109 mmol/L High 98-108 [facility] Comment on above: Performed By: #### L 500.2500 ####[facility] [address] [place], [address] CO2 [Moles/Vol] 20.2 mmol/L Low 21.0-32.0 [facility] Comment on above: Performed By: #### L 500.2500 ####[facility] [address] [place], [address] Creatinine [Mass/Vol] 0.63 mg/dL Low 0.70-1.20 [facility] Comment on above: Performed By: #### L 500.2500 ####[facility] [address] [place], [address] ECRCL 136.46 ml/min Normal 50-250 [facility] Comment on above: Performed By: #### L 500.2500 ####[facility] [address] [place], [address] GAP 10 Normal 5-15 [facility] Comment on above: Performed By: #### L 500.2500 ####[facility] [address] [place], [address] GFR/1.73 sq M.predicted among non-blacks MDRD (S/P/Bld) [Vol rate/Area] 122 mL/min/{1.73_m2} Normal >60 [facility] Comment on above: Result Comment: mL/m in/1.73m2 CKD-EPI Creatinine Equation (2020) Performed By: #### L 500.2500 ####[facility] [address] [place], [address] Glucose [Mass/Vol] 136 mg/dL High 70-99 [facility] Comment on above: Performed By: #### L 500.2500 ####[facility] [address] [place], [address] Potassium [Moles/Vol] 3.3 mmol/L Normal 3.3-5.1 [facility] Comment on above: Performed By: #### L 500.2500 ####[facility] [address] [place], [address] Sodium [Moles/Vol] 139 mmol/L Normal 133-145 [facility] Comment on above: Performed By: #### L 500.2500 ####[facility] [address] [place], [address] Urea nitrogen [Mass/Vol] 6 mg/dL Normal 4-19 [facility] Comment on above: Performed By: #### L 500.2500 ####[facility] [address] [place], [address] Bedside Glucoseon 03-07-2025 FINGERSTICK GLU 282 mg/dL High 74-106 [facility] Comment on above: Result Comment: EDGAR GEMENT OF PATIENT CARE PER NURSING PROTOCOL Performed By: #### L 501.080 ####[facility] [address] [place], [address] FINGERSTICK GLU 262 mg/dL High 74-106 [facility] Comment on above: Result Comment: EDGAR GEMENT OF PATIENT CARE PER NURSING PROTOCOL Performed By: #### L 501.080 ####[facility] [address] [place], [address] FINGERSTICK GLU 354 mg/dL High 74-106 [facility] Comment on above: Result Comment: EDGAR GEMENT OF PATIENT CARE PER NURSING PROTOCOL Performed By: #### L 501.080 ####[facility] [address] [place], [address] FINGERSTICK GLU 169 mg/dL High 74-106 [facility] Comment on above: Result Comment: EDGAR GEMENT OF PATIENT CARE PER NURSING PROTOCOL Performed By: #### L 501.080 ####[facility] [address] [place], [address] FINGERSTICK GLU 163 mg/dL High 74-106 [facility] Comment on above: Result Comment: EDGAR GEMENT OF PATIENT CARE PER NURSING PROTOCOL Performed By: #### L 501.080 ####[facility] [address] [place], [address] FINGERSTICK GLU 106 mg/dL Normal 74-106 [facility] Comment on above: Result Comment: EDGAR GEMENT OF PATIENT CARE PER NURSING PROTOCOL Performed By: #### L 501.080 ####[facility] [address] [place], [address] FINGERSTICK GLU 88 mg/dL Normal 74-106 [facility] Comment on above: Result Comment: EDGAR GEMENT OF PATIENT CARE PER NURSING PROTOCOL Performed By: #### L 501.080 ####[facility] [address] [place], [address] FINGERSTICK GLU 94 mg/dL Normal 74-106 [facility] Comment on above: Result Comment: EDGAR GEMENT OF PATIENT CARE PER NURSING PROTOCOL Performed By: #### L 501.080 ####[facility] [address] [place], [address] FINGERSTICK GLU 129 mg/dL High 74-106 [facility] Comment on above: Result Comment: EDGAR GEMENT OF PATIENT CARE PER NURSING PROTOCOL Performed By: #### L 501.080 ####[facility] [address] [place], [address] FINGERSTICK GLU 119 mg/dL High 74-106 [facility] Comment on above: Result Comment: EDGAR GEMENT OF PATIENT CARE PER NURSING PROTOCOL Performed By: #### L 501.080 ####[facility] [address] [place], [address] Beta-Hydroxbytyrateon 2024 BETA-HYDROXYBUT 1.2 mmol/L High 0.0-0.3 [facility] Comment on above: Performed By: #### L 501.6901 ####[facility] [address] [place], [address] CBC-Complete Blood Cnt No Di ffon 03-07-2025 Erythrocyte distribution width (RBC) [Ratio] 13.8 % Normal 11.6-14.6 [facility] Comment on above: Performed By: #### L 100.0500 ####[facility] [address] [place], [address] Hematocrit (Bld) [Volume fraction] 33.3 % Low 37-47 [facility] Comment on above: Performed By: #### L 100.0500 ####[facility] [address] [place], [address] Hemoglobin (Bld) [Mass/Vol] 11.0 g/dL Low 12.0-15.0 [facility] Comment on above: Performed By: #### L 100.0500 ####[facility] [address] [place], [address] MCH (RBC) [Entitic mass] 29.6 pg Normal 27.0-32.0 [facility] Comment on above: Performed By: #### L 100.0500 ####[facility] [address] [place], [address] MCHC (RBC) [Mass/Vol] 33.0 g/dL Normal 32-36 [facility] Comment on above: Performed By: #### L 100.0500 ####[facility] [address] [place], [address] MCV (RBC) [Entitic vol] 89.8 fL Normal 81-99 [facility] Comment on above: Performed By: #### L 100.0500 ####[facility] [address] [place], [address] Platelet mean volume (Bld) [Entitic vol] 11.4 fL Normal 6.2-12.0 [facility] Comment on above: Performed By: #### L 100.0500 ####[facility] [address] [place], [address] Platelets (Bld) [#/Vol] 176 10*3/uL Normal 150-450 [facility] Comment on above: Performed By: #### L 100.0500 ####[facility] [address] [place], [address] RBC (Bld) [#/Vol] 3.71 10*6/uL Low 4.2-5.4 [facility] Comment on above: Performed By: #### L 100.0500 ####[facility] [address] [place], [address] RDW SD 45.2 fl High 35.1-43.9 [facility] Comment on above: Performed By: #### L 100.0500 ####[facility] [address] [place], [address] WBC (Bld) [#/Vol] 15.4 10*3/uL High 4.4-11.0 [facility] Comment on above: Performed By: #### L 100.0500 ####[facility] [address] [place], [address] Basic Metabolic Profile (BMP )on 03-06-2025 BUN/CRE 12.3 RATIO Normal - [facility] Comment on above: Order Comment: Call MD with results STAT Performed By: #### L 500.2500 ####[facility] [address] [place], [address] Calcium [Mass/Vol] 8.3 mg/dL Normal 7.6-11.0 [facility] Comment on above: Order Comment: Call MD with results STAT Performed By: #### L 500.2500 ####[facility] [address] [place], [address] Chloride [Moles/Vol] 107 mmol/L Normal 98-108 [facility] Comment on above: Order Comment: Call MD with results STAT Performed By: #### L 500.2500 ####[facility] [address] [place], [address] CO2 [Moles/Vol] 18.9 mmol/L Low 21.0-32.0 [facility] Comment on above: Order Comment: Call MD with results STAT Performed By: #### L 500.2500 ####[facility] [address] [place], [address] Creatinine [Mass/Vol] 0.68 mg/dL Low 0.70-1.20 [facility] Comment on above: Order Comment: Call MD with results STAT Performed By: #### L 500.2500 ####[facility] [address] [place], [address] ECRCL 126.42 ml/min Normal 50-250 [facility] Comment on above: Order Comment: Call MD with results STAT Performed By: #### L 500.2500 ####[facility] [address] [place], [address] GAP 12 Normal 5-15 [facility] Comment on above: Order Comment: Call MD with results STAT Performed By: #### L 500.2500 ####[facility] [address] [place], [address] GFR/1.73 sq M.predicted among non-blacks MDRD (S/P/Bld) [Vol rate/Area] 120 mL/min/{1.73_m2} Normal >60 [facility] Comment on above: Order Comment: Call MD with results STAT Result Comment: mL/m in/1.73m2 CKD-EPI Creatinine Equation (2020) Performed By: #### L 500.2500 ####[facility] [address] [place], [address] Glucose [Mass/Vol] 199 mg/dL High 70-99 [facility] Comment on above: Order Comment: Call MD with results STAT Performed By: #### L 500.2500 ####[facility] [address] [place], [address] Potassium [Moles/Vol] 3.6 mmol/L Normal 3.3-5.1 [facility] Comment on above: Order Comment: Call MD with results STAT Performed By: #### L 500.2500 ####[facility] [address] [place], [address] Sodium [Moles/Vol] 137 mmol/L Normal 133-145 [facility] Comment on above: Order Comment: Call MD with results STAT Performed By: #### L 500.2500 ####[facility] [address] [place], [address] Urea nitrogen [Mass/Vol] 8 mg/dL Normal 4-19 [facility] Comment on above: Order Comment: Call MD with results STAT Performed By: #### L 500.2500 ####[facility] [address] [place], [address] BUN/CRE 13.8 RATIO Normal 10-20 [facility] Comment on above: Order Comment: Call MD with results STAT Performed By: #### L 500.2500 ####[facility] [address] [place], [address] Calcium [Mass/Vol] 8.3 mg/dL Normal 7.6-11.0 [facility] Comment on above: Order Comment: Call MD with results STAT Performed By: #### L 500.2500 ####[facility] [address] [place], [address] Chloride [Moles/Vol] 105 mmol/L Normal 98-108 [facility] Comment on above: Order Comment: Call MD with results STAT Performed By: #### L 500.2500 ####[facility] [address] [place], [address] CO2 [Moles/Vol] 16.5 mmol/L Low 21.0-32.0 [facility] Comment on above: Order Comment: Call MD with results STAT Performed By: #### L 500.2500 ####[facility] [address] [place], [address] Creatinine [Mass/Vol] 0.70 mg/dL Normal 0.70-1.20 [facility] Comment on above: Order Comment: Call MD with results STAT Performed By: #### L 500.2500 ####[facility] [address] [place], [address] ECRCL 122.81 ml/min Normal 50-250 [facility] Comment on above: Order Comment: Call MD with results STAT Performed By: #### L 500.2500 ####[facility] [address] [place], [address] GAP 15 Normal 5-15 [facility] Comment on above: Order Comment: Call MD with results STAT Performed By: #### L 500.2500 ####[facility] [address] [place], [address] GFR/1.73 sq M.predicted among non-blacks MDRD (S/P/Bld) [Vol rate/Area] 119 mL/min/{1.73_m2} Normal >60 [facility] Comment on above: Order Comment: Call MD with results STAT Result Comment: mL/m in/1.73m2 CKD-EPI Creatinine Equation (2020) Performed By: #### L 500.2500 ####[facility] [address] [place], [address] Glucose [Mass/Vol] 239 mg/dL High 70-99 [facility] Comment on above: Order Comment: Call MD with results STAT Performed By: #### L 500.2500 ####[facility] [address] [place], [address] Potassium [Moles/Vol] 4.0 mmol/L Normal 3.3-5.1 [facility] Comment on above: Order Comment: Call MD with results STAT Performed By: #### L 500.2500 ####[facility] [address] [place], [address] Sodium [Moles/Vol] 136 mmol/L Normal 133-145 [facility] Comment on above: Order Comment: Call MD with results STAT Performed By: #### L 500.2500 ####[facility] [address] [place], [address] Urea nitrogen [Mass/Vol] 10 mg/dL Normal 4-19 [facility] Comment on above: Order Comment: Call MD with results STAT Performed By: #### L 500.2500 ####[facility] [address] [place], [address] BUN/CRE 15.9 RATIO Normal 10-20 [facility] Comment on above: Order Comment: Call MD with results STAT Performed By: #### L 500.2500 ####[facility] [address] [place], [address] Calcium [Mass/Vol] 8.3 mg/dL Normal 7.6-11.0 [facility] Comment on above: Order Comment: Call MD with results STAT Performed By: #### L 500.2500 ####[facility] [address] [place], [address] Chloride [Moles/Vol] 105 mmol/L Normal 98-108 [facility] Comment on above: Order Comment: Call MD with results STAT Performed By: #### L 500.2500 ####[facility] [address] [place], [address] CO2 [Moles/Vol] 13.0 mmol/L Low 21.0-32.0 [facility] Comment on above: Order Comment: Call MD with results STAT Performed By: #### L 500.2500 ####[facility] [address] [place], [address] Creatinine [Mass/Vol] 0.71 mg/dL Normal 0.70-1.20 [facility] Comment on above: Order Comment: Call MD with results STAT Performed By: #### L 500.2500 ####[facility] [address] [place], [address] ECRCL 121.08 ml/min Normal 50-250 [facility] Comment on above: Order Comment: Call MD with results STAT Performed By: #### L 500.2500 ####[facility] [address] [place], [address] GAP 18 High 5-15 [facility] Comment on above: Order Comment: Call MD with results STAT Performed By: #### L 500.2500 ####[facility] [address] [place], [address] GFR/1.73 sq M.predicted among non-blacks MDRD (S/P/Bld) [Vol rate/Area] 117 mL/min/{1.73_m2} Normal >60 [facility] Comment on above: Order Comment: Call MD with results STAT Result Comment: mL/m in/1.73m2 CKD-EPI Creatinine Equation (2020) Performed By: #### L 500.2500 ####[facility] [address] [place], [address] Glucose [Mass/Vol] 220 mg/dL High 70-99 [facility] Comment on above: Order Comment: Call MD with results STAT Performed By: #### L 500.2500 ####[facility] [address] [place], [address] Potassium [Moles/Vol] 4.3 mmol/L Normal 3.3-5.1 [facility] Comment on above: Order Comment: Call MD with results STAT Result Comment: Hemo lysis present, Results??could be affected.?? Performed By: #### L 500.2500 ####[facility] [address] [place], [address] Sodium [Moles/Vol] 136 mmol/L Normal 133-145 [facility] Comment on above: Order Comment: Call MD with results STAT Performed By: #### L 500.2500 ####[facility] [address] [place], [address] Urea nitrogen [Mass/Vol] 11 mg/dL Normal 4-19 [facility] Comment on above: Order Comment: Call MD with results STAT Performed By: #### L 500.2500 ####[facility] [address] [place], [address] BUN/CRE 17.5 RATIO Normal 10-20 [facility] Comment on above: Order Comment: Call MD with results STAT Performed By: #### L 500.2500 ####[facility] [address] [place], [address] Calcium [Mass/Vol] 8.8 mg/dL Normal 7.6-11.0 [facility] Comment on above: Order Comment: Call MD with results STAT Performed By: #### L 500.2500 ####[facility] [address] [place], [address] Chloride [Moles/Vol] 102 mmol/L Normal 98-108 [facility] Comment on above: Order Comment: Call MD with results STAT Performed By: #### L 500.2500 ####[facility] [address] [place], [address] CO2 [Moles/Vol] 11.6 mmol/L Low 21.0-32.0 [facility] Comment on above: Order Comment: Call MD with results STAT Performed By: #### L 500.2500 ####[facility] [address] [place], [address] Creatinine [Mass/Vol] 0.85 mg/dL Normal 0.70-1.20 [facility] Comment on above: Order Comment: Call MD with results STAT Performed By: #### L 500.2500 ####[facility] [address] [place], [address] ECRCL 101.14 ml/min Normal 50-250 [facility] Comment on above: Order Comment: Call MD with results STAT Performed By: #### L 500.2500 ####[facility] [address] [place], [address] GAP 22 High 5-15 [facility] Comment on above: Order Comment: Call MD with results STAT Performed By: #### L 500.2500 ####[facility] [address] [place], [address] GFR/1.73 sq M.predicted among non-blacks MDRD (S/P/Bld) [Vol rate/Area] 94 mL/min/{1.73_m2} Normal >60 [facility] Comment on above: Order Comment: Call MD with results STAT Result Comment: mL/m in/1.73m2 CKD-EPI Creatinine Equation (2020) Performed By: #### L 500.2500 ####[facility] [address] [place], [address] Glucose [Mass/Vol] 317 mg/dL High 70-99 [facility] Comment on above: Order Comment: Call MD with results STAT Performed By: #### L 500.2500 ####[facility] [address] [place], [address] Potassium [Moles/Vol] 4.6 mmol/L Normal 3.3-5.1 [facility] Comment on above: Order Comment: Call MD with results STAT Result Comment: Hemo lysis present, Results??could be affected.?? Performed By: #### L 500.2500 ####[facility] [address] [place], [address] Sodium [Moles/Vol] 136 mmol/L Normal 133-145 [facility] Comment on above: Order Comment: Call MD with results STAT Performed By: #### L 500.2500 ####[facility] [address] [place], [address] Urea nitrogen [Mass/Vol] 15 mg/dL Normal 4-19 [facility] Comment on above: Order Comment: Call MD with results STAT Performed By: #### L 500.2500 ####[facility] [address] [place], [address] BUN/CRE 18.2 RATIO Normal 10-20 [facility] Comment on above: Performed By: #### L 500.3400, L100.0100, L501.7300, L501.2450, L500.2500 ####[facility] [address] [place], [address] Calcium [Mass/Vol] 9.3 mg/dL Normal 7.6-11.0 [facility] Comment on above: Performed By: #### L 500.3400, L100.0100, L501.7300, L501.2450, L500.2500 ####[facility] [address] [place], [address] Chloride [Moles/Vol] 95 mmol/L Low 98-108 [facility] Comment on above: Performed By: #### L 500.3400, L100.0100, L501.7300, L501.2450, L500.2500 ####[facility] [address] [place], [address] CO2 [Moles/Vol] 11.4 mmol/L Low 21.0-32.0 [facility] Comment on above: Performed By: #### L 500.3400, L100.0100, L501.7300, L501.2450, L500.2500 ####[facility] [address] [place], [address] Creatinine [Mass/Vol] 0.87 mg/dL Normal 0.70-1.20 [facility] Comment on above: Performed By: #### L 500.3400, L100.0100, L501.7300, L501.2450, L500.2500 ####[facility] [address] [place], [address] ECRCL 98.81 ml/min Normal 50-250 [facility] Comment on above: Performed By: #### L 500.3400, L100.0100, L501.7300, L501.2450, L500.2500 ####[facility] [address] [place], [address] GAP 27 High 5-15 [facility] Comment on above: Performed By: #### L 500.3400, L100.0100, L501.7300, L501.2450, L500.2500 ####[facility] [address] [place], [address] GFR/1.73 sq M.predicted among non-blacks MDRD (S/P/Bld) [Vol rate/Area] 91 mL/min/{1.73_m2} Normal >60 [facility] Comment on above: Result Comment: mL/m in/1.73m2 CKD-EPI Creatinine Equation (2020) Performed By: #### L 500.3400, L100.0100, L501.7300, L501.2450, L500.2500 ####[facility] [address] [place], [address] Glucose [Mass/Vol] 547 mg/dL Invalid Interpretation Code 70-99 [facility] Comment on above: Result Comment: Crit ical Result(s) Called at 0240: by: SUZANNE AGUILERA??Results read back by same. Performed By: #### L 500.3400, L100.0100, L501.7300, L501.2450, L500.2500 ####[facility] [address] [place], [address] Potassium [Moles/Vol] 4.4 mmol/L Normal 3.3-5.1 [facility] Comment on above: Performed By: #### L 500.3400, L100.0100, L501.7300, L501.2450, L500.2500 ####[facility] [address] [place], [address] Sodium [Moles/Vol] 133 mmol/L Normal 133-145 [facility] Comment on above: Performed By: #### L 500.3400, L100.0100, L501.7300, L501.2450, L500.2500 ####[facility] [address] [place], [address] Urea nitrogen [Mass/Vol] 16 mg/dL Normal 4-19 [facility] Comment on above: Performed By: #### L 500.3400, L100.0100, L501.7300, L501.2450, L500.2500 ####[facility] [address] [place], [address] Bedside Glucoseon 03-06-2025 FINGERSTICK GLU 127 mg/dL High 74-106 [facility] Comment on above: Result Comment: EDGAR GEMENT OF PATIENT CARE PER NURSING PROTOCOL Performed By: #### L 501.080 ####[facility] [address] [place], [address] FINGERSTICK GLU 160 mg/dL High 74-106 [facility] Comment on above: Result Comment: EDGAR GEMENT OF PATIENT CARE PER NURSING PROTOCOL Performed By: #### L 501.080 ####[facility] [address] [place], [address] FINGERSTICK GLU 127 mg/dL High 74-106 [facility] Comment on above: Result Comment: EDGAR GEMENT OF PATIENT CARE PER NURSING PROTOCOL Performed By: #### L 501.080 ####[facility] [address] [place], [address] FINGERSTICK GLU 196 mg/dL High 74-106 [facility] Comment on above: Result Comment: EDGAR GEMENT OF PATIENT CARE PER NURSING PROTOCOL Performed By: #### L 501.080 ####[facility] [address] [place], [address] FINGERSTICK GLU 203 mg/dL High 74-106 [facility] Comment on above: Result Comment: Dr Ej foreman FollowedMANAGEMENT OF PATIENT CARE PER NURSING PROTOCOL Performed By: #### L 501.080 ####[facility] [address] [place], [address] FINGERSTICK GLU 231 mg/dL High 74-106 [facility] Comment on above: Result Comment: Dr Ej foreman FollowedMANAGEMENT OF PATIENT CARE PER NURSING PROTOCOL Performed By: #### L 501.080 ####[facility] [address] [place], [address] FINGERSTICK GLU 222 mg/dL High [address] [place] [address] Comment on above: Result Comment: EDGAR GEMENT OF PATIENT CARE PER NURSING PROTOCOL Performed By: #### L 501.080 ####[facility] [address] [place], [address] FINGERSTICK GLU 214 mg/dL High [address] [place] [address] Comment on above: Result Comment: EDGAR GEMENT OF PATIENT CARE PER NURSING PROTOCOL Performed By: #### L 501.080 ####[facility] [address] [place], [address] FINGERSTICK GLU 214 mg/dL High [address] [place] [address] Comment on above: Result Comment: EDGAR GEMENT OF PATIENT CARE PER NURSING PROTOCOL Performed By: #### L 501.080 ####[facility] [address] [place], [address] FINGERSTICK GLU 241 mg/dL High [address] [place] [address] Comment on above: Result Comment: EDGAR GEMENT OF PATIENT CARE PER NURSING PROTOCOL Performed By: #### L 501.080 ####[facility] [address] [place], [address] FINGERSTICK GLU 247 mg/dL High [address] [place] [address] Comment on above: Result Comment: Dr Ej foreman FollowedMANAGEMENT OF PATIENT CARE PER NURSING PROTOCOL Performed By: #### L 501.080 ####[facility] [address] [place], [address] FINGERSTICK GLU 217 mg/dL High [address] [place] [address] Comment on above: Result Comment: EDGAR GEMENT OF PATIENT CARE PER NURSING PROTOCOL Performed By: #### L 501.080 ####[facility] [address] [place], [address] FINGERSTICK GLU 253 mg/dL High [address] [place] [address] Comment on above: Result Comment: EDGAR GEMENT OF PATIENT CARE PER NURSING PROTOCOL Performed By: #### L 501.080 ####[facility] [address] [place], [address] FINGERSTICK GLU 313 mg/dL High -[address] [place] [address] Comment on above: Result Comment: EDGAR GEMENT OF PATIENT CARE PER NURSING PROTOCOL Performed By: #### L 501.080 ####[facility] [address] [place], [address] FINGERSTICK GLU 352 mg/dL High [address] [place] [address] Comment on above: Result Comment: EDGAR GEMENT OF PATIENT CARE PER NURSING PROTOCOL Performed By: #### L 501.080 ####[facility] [address] [place], [address] FINGERSTICK GLU 480 mg/dL Invalid Interpretation Code -[address] [place] [address] Comment on above: Result Comment: EDGAR GEMENT OF PATIENT CARE PER NURSING PROTOCOL Performed By: #### L 501.080 ####[facility] [address] [place], [address] Beta-Hydroxbytyrateon 2024 BETA-HYDROXYBUT 1.7 mmol/L High 0.0-0.3 [facility] Comment on above: Performed By: #### L 501.6901 ####[facility] [address] [place], [address] BETA-HYDROXYBUT 4.2 mmol/L High 0.0-0.3 [facility] Comment on above: Order Comment: FOR N IGHLTY MAINTENANCE, MOVED TO DIFFERENT REQ FOR THATREASON Performed By: #### L 501.6901 ####[facility] [address] [place], [address] CBC W/Diff, Automatedon 07- PLT MORPH CLUMPED Normal [facility] Comment on above: Performed By: #### L 100.0100 ####[facility] [address] [place], [address] RED CELL MORPH NORM C+C Normal NORM C C [facility] Comment on above: Performed By: #### L 100.0100 ####[facility] [address] [place], [address] PLT EST ADEQUATE Normal ADEQ [facility] Comment on above: Performed By: #### L 100.0100 ####[facility] [address] [place], [address] SMEAR COMMENT SCANNED Normal [facility] Comment on above: Performed By: #### L 100.0100 ####[facility] [address] [place], [address] Absolute Neut Normal 2.0-7.7 [facility] Comment on above: Result Comment: This specimen has been REJECTED due to Laboratory criteria:Clotted.GENO has been notified of need of recollection.03/06/25143 [place] Performed By: #### L 500.3400, L100.0100, L501.7300, L501.2450, L500.2500 ####[facility] [address] [place], [address] HCT Normal 37-47 [facility] Comment on above: Result Comment: This specimen has been REJECTED due to Laboratory criteria:Clotted.GENO has been notified of need of recollection.03/06/25143 [place] Performed By: #### L 500.3400, L100.0100, L501.7300, L501.2450, L500.2500 ####[facility] [address] [place], [address] HGB Normal 12.0-15.0 [facility] Comment on above: Result Comment: This specimen has been REJECTED due to Laboratory criteria:Clotted.GENO has been notified of need of recollection.03/06/25143 [place] Performed By: #### L 500.3400, L100.0100, L501.7300, L501.2450, L500.2500 ####[facility] [address] [place], [address] MCH Normal 27.0-32.0 [facility] Comment on above: Result Comment: This specimen has been REJECTED due to Laboratory criteria:Clotted.GENO has been notified of need of recollection.03/06/25143 [place] Performed By: #### L 500.3400, L100.0100, L501.7300, L501.2450, L500.2500 ####[facility] [address] [place], [address] MCHC Normal 32-36 [facility] Comment on above: Result Comment: This specimen has been REJECTED due to Laboratory criteria:Clotted.GENO has been notified of need of recollection.03/06/25143 [place] Performed By: #### L 500.3400, L100.0100, L501.7300, L501.2450, L500.2500 ####[facility] [address] [place], [address] MCV Normal 81-99 [facility] Comment on above: Result Comment: This specimen has been REJECTED due to Laboratory criteria:Clotted.GENO has been notified of need of recollection.03/06/25143 [place] Performed By: #### L 500.3400, L100.0100, L501.7300, L501.2450, L500.2500 ####[facility] [address] [place], [address] NEUT% Normal 47-70 [facility] Comment on above: Result Comment: This specimen has been REJECTED due to Laboratory criteria:Clotted.GENO has been notified of need of recollection.03/06/25143 [place] Performed By: #### L 500.3400, L100.0100, L501.7300, L501.2450, L500.2500 ####[facility] [address] [place], [address] PLT Normal 150-450 [facility] Comment on above: Result Comment: This specimen has been REJECTED due to Laboratory criteria:Clotted.GENO has been notified of need of recollection.03/06/25143 [place] Performed By: #### L 500.3400, L100.0100, L501.7300, L501.2450, L500.2500 ####[facility] [address] [place], [address] RBC Normal 4.2-5.4 [facility] Comment on above: Result Comment: This specimen has been REJECTED due to Laboratory criteria:Clotted.GENO has been notified of need of recollection.03/06/25143 [place] Performed By: #### L 500.3400, L100.0100, L501.7300, L501.2450, L500.2500 ####[facility] [address] [place], [address] RDW CV Normal 11.6-14.6 [facility] Comment on above: Result Comment: This specimen has been REJECTED due to Laboratory criteria:Clotted.GENO has been notified of need of recollection.03/06/25143 [place] Performed By: #### L 500.3400, L100.0100, L501.7300, L501.2450, L500.2500 ####[facility] [address] [place], [address] RDW SD Normal 35.1-43.9 [facility] Comment on above: Result Comment: This specimen has been REJECTED due to Laboratory criteria:Clotted.GENO has been notified of need of recollection.03/06/25143 [place] Performed By: #### L 500.3400, L100.0100, L501.7300, L501.2450, L500.2500 ####[facility] [address] [place], [address] WBC Normal 4.4-11.0 [facility] Comment on above: Result Comment: This specimen has been REJECTED due to Laboratory criteria:Clotted.GENO has been notified of need of recollection.03/06/25143 [place] Performed By: #### L 500.3400, L100.0100, L501.7300, L501.2450, L500.2500 ####[facility] [address] [place], [address] Chest PA and Lateralon 03-06 Chest PA and Lateral Normal [facility] Emergency Department Summary on 03-06-2025 Emergency Department Summary Normal [facility] H AND P Exam - Hospitaliston 03-06-2025 H&P Exam - Hospitalist Normal [facility] Lipaseon 03-06-2025 Lipase [Catalytic activity/Vol] 21 U/L Normal 13-75 [facility] Comment on above: Result Comment: Sulma schmitz note:LIPASE revised reference range effective 22.New Lipase methodology. Expected to produce lower valuesthan the previous assay method.NEW Reference Range: 13 - 75 U/L Performed By: #### L 500.3400, L100.0100, L501.7300, L501.2450, L500.2500 ####[facility] [address] [place], [address] Liver Profileon 03-06-2025 Albumin [Mass/Vol] 4.4 g/dL Normal 3.5-5.0 [facility] Comment on above: Performed By: #### L 500.3400, L100.0100, L501.7300, L501.2450, L500.2500 ####[facility] [address] [place], [address] ALK PHOS 85 U/L Normal 35-104 [facility] Comment on above: Performed By: #### L 500.3400, L100.0100, L501.7300, L501.2450, L500.2500 ####[facility] [address] [place], [address] ALT [Catalytic activity/Vol] 11 U/L Normal <=34 [facility] Comment on above: Performed By: #### L 500.3400, L100.0100, L501.7300, L501.2450, L500.2500 ####[facility] [address] [place], [address] AST [Catalytic activity/Vol] 17 U/L Normal <=31 [facility] Comment on above: Performed By: #### L 500.3400, L100.0100, L501.7300, L501.2450, L500.2500 ####[facility] [address] [place], [address] Bilirubin [Mass/Vol] 0.79 mg/dL Normal 0.00-1.30 [facility] Comment on above: Performed By: #### L 500.3400, L100.0100, L501.7300, L501.2450, L500.2500 ####[facility] [address] [place], [address] Bilirubin.direct [Mass/Vol] 0.35 mg/dL High 0.00-0.30 [facility] Comment on above: Performed By: #### L 500.3400, L100.0100, L501.7300, L501.2450, L500.2500 ####[facility] [address] [place], [address] Globulin (S) [Mass/Vol] 2.5 g/dL Normal 2.2-4.2 [facility] Comment on above: Performed By: #### L 500.3400, L100.0100, L501.7300, L501.2450, L500.2500 ####[facility] [address] [place], [address] T PROT 6.9 g/dL Normal 5.9-8.4 [facility] Comment on above: Performed By: #### L 500.3400, L100.0100, L501.7300, L501.2450, L500.2500 ####[facility] [address] [place], [address] Osmolality, Serumon 03-06-20 25 OSMOLALITY,SER 325 mOsm/KG High 275-295 [facility] Comment on above: Performed By: #### L 500.3400, L100.0100, L501.7300, L501.2450, L500.2500 ####[facility] [address] [place], [address] Venous Blood Gason 5 VBG pCO2 8.2 mmHg Invalid Interpretation Code 41-51 [facility] Comment on above: Performed By: #### L 9000.0810 ####[facility] [address] [place], [address] Bedside Glucoseon 03-05-2025 FINGERSTICK GLU 91 mg/dL Normal 74-106 [facility] Comment on above: Result Comment: EDGAR HUNG OF PATIENT CARE PER NURSING PROTOCOL Performed By: #### L 501.080 ####[facility] [address] [place], [address] Colonoscopy Reporton 025 Colonoscopy Report Normal [facility] EGD Reporton 03-05-2025 EGD Report Normal [facility] Immunohistochemical Stainson 03-05-2025 Immunohistochemical Stains Normal [facility] Comment on above: Performed By: #### P IMHI ####[facility] [address] [place], [address] MR/POSTOP.ANEon 03-05-2025 MR/POSTOP.ANE Normal [facility] MR/JNXFUGZL3aq 03-05-2025 MR/POSTOPAN2 Normal [facility] MR/PAT.ANEon 03-04-2025 MR/PAT.ANE Normal [facility] CBC W/Diff, Automatedon 07-0 Absolute Lymph 2.23 X10 3/uL Normal 0.83-4.51 [facility] Comment on above: Performed By: #### L 100.0100, L501.5200, L500.4050 ####[facility] [address] [place], [address] Absolute Neut 9.6 X10 3/uL High 2.0-7.7 [facility] Comment on above: Performed By: #### L 100.0100, L501.5200, L500.4050 ####[facility] [address] [place], [address] Basophils/100 WBC (Bld) 0.4 % Normal 0-1 [facility] Comment on above: Performed By: #### L 100.0100, L501.5200, L500.4050 ####[facility] [address] [place], [address] Eosinophils/100 WBC (Bld) 2.7 % Normal 0-5 [facility] Comment on above: Performed By: #### L 100.0100, L501.5200, L500.4050 ####[facility] [address] [place], [address] Erythrocyte distribution width (RBC) [Ratio] 13.7 % Normal 11.6-14.6 [facility] Comment on above: Performed By: #### L 100.0100, L501.5200, L500.4050 ####[facility] [address] [place], [address] Hematocrit (Bld) [Volume fraction] 43.5 % Normal 37-47 [facility] Comment on above: Performed By: #### L 100.0100, L501.5200, L500.4050 ####[facility] [address] [place], [address] Hemoglobin (Bld) [Mass/Vol] 14.2 g/dL Normal 12.0-15.0 [facility] Comment on above: Performed By: #### L 100.0100, L501.5200, L500.4050 ####[facility] [address] [place], [address] IG% 1.800 High 0.0-0.9 [facility] Comment on above: Result Comment: IG% - Immature Granulocytes (promyelocytes, myelocytes andmetamyelocytes) > 1% indicates that a LEFT SHIFT is Present. Performed By: #### L 100.0100, L501.5200, L500.4050 ####[facility] [address] [place], [address] Lymphocytes/100 WBC (Bld) 17.1 % Low 19-41 [facility] Comment on above: Performed By: #### L 100.0100, L501.5200, L500.4050 ####[facility] [address] [place], [address] MCH (RBC) [Entitic mass] 29.3 pg Normal 27.0-32.0 [facility] Comment on above: Performed By: #### L 100.0100, L501.5200, L500.4050 ####[facility] [address] [place], [address] MCHC (RBC) [Mass/Vol] 32.6 g/dL Normal 32-36 [facility] Comment on above: Performed By: #### L 100.0100, L501.5200, L500.4050 ####[facility] [address] [place], [address] MCV (RBC) [Entitic vol] 89.9 fL Normal 81-99 [facility] Comment on above: Performed By: #### L 100.0100, L501.5200, L500.4050 ####[facility] [address] [place], [address] Monocytes/100 WBC (Bld) 4.6 % Normal 0-10 [facility] Comment on above: Performed By: #### L 100.0100, L501.5200, L500.4050 ####[facility] [address] [place], [address] Neutrophils/100 WBC (Bld) 73.4 % High 47-70 [facility] Comment on above: Performed By: #### L 100.0100, L501.5200, L500.4050 ####[facility] [address] [place], [address] Nucleated RBC (Bld) [#/Vol] 0 10*3/uL Normal 0-5 [facility] Comment on above: Performed By: #### L 100.0100, L501.5200, L500.4050 ####[facility] [address] [place], [address] Platelet mean volume (Bld) [Entitic vol] 12.2 fL High 6.2-12.0 [facility] Comment on above: Performed By: #### L 100.0100, L501.5200, L500.4050 ####[facility] [address] [place], [address] Platelets (Bld) [#/Vol] 201 10*3/uL Normal 150-450 [facility] Comment on above: Performed By: #### L 100.0100, L501.5200, L500.4050 ####[facility] [address] [place], [address] RBC (Bld) [#/Vol] 4.84 10*6/uL Normal 4.2-5.4 [facility] Comment on above: Performed By: #### L 100.0100, L501.5200, L500.4050 ####[facility] [address] [place], [address] RDW SD 44.5 fl High 35.1-43.9 [facility] Comment on above: Performed By: #### L 100.0100, L501.5200, L500.4050 ####[facility] [address] [place], [address] WBC (Bld) [#/Vol] 13.1 10*3/uL High 4.4-11.0 [facility] Comment on above: Performed By: #### L 100.0100, L501.5200, L500.4050 ####[facility] [address] [place], [address] Comprehensive Metabolic Prof paon 02-25-2025 Albumin [Mass/Vol] 4.2 g/dL Normal 3.5-5.0 [facility] Comment on above: Performed By: #### L 100.0100, L501.5200, L500.4050 ####[facility] [address] [place], [address] Albumin/Globulin [Mass ratio] 1.6 {ratio} Normal 0.9-2.4 [facility] Comment on above: Performed By: #### L 100.0100, L501.5200, L500.4050 ####[facility] [address] [place], [address] ALK PHOS 77 U/L Normal 35-104 [facility] Comment on above: Performed By: #### L 100.0100, L501.5200, L500.4050 ####[facility] [address] [facility] [place], [address] ALT [Catalytic activity/Vol] 7 U/L Normal <=34 [facility] Comment on above: Performed By: #### L 100.0100, L501.5200, L500.4050 ####[facility] [address] [place], [address] AST [Catalytic activity/Vol] 15 U/L Normal <=31 [facility] Comment on above: Performed By: #### L 100.0100, L501.5200, L500.4050 ####[facility] [address] [place], [address] Bilirubin [Mass/Vol] 0.71 mg/dL Normal 0.00-1.30 [facility] Comment on above: Performed By: #### L 100.0100, L501.5200, L500.4050 ####[facility] [address] [place], [address] BUN/CRE 18.7 RATIO Normal 10-20 [facility] Comment on above: Performed By: #### L 100.0100, L501.5200, L500.4050 ####[facility] [address] [place], [address] Calcium [Mass/Vol] 9.2 mg/dL Normal 7.6-11.0 [facility] Comment on above: Performed By: #### L 100.0100, L501.5200, L500.4050 ####[facility] [address] [place], [address] Chloride [Moles/Vol] 104 mmol/L Normal 98-108 [facility] Comment on above: Performed By: #### L 100.0100, L501.5200, L500.4050 ####[facility] [address] [place], [address] CO2 [Moles/Vol] 20.2 mmol/L Low 21.0-32.0 [facility] Comment on above: Performed By: #### L 100.0100, L501.5200, L500.4050 ####[facility] [address] [place], [address] Creatinine [Mass/Vol] 0.63 mg/dL Low 0.70-1.20 [facility] Comment on above: Performed By: #### L 100.0100, L501.5200, L500.4050 ####[facility] [address] [place], [address] GAP 14 Normal 5-15 [facility] Comment on above: Performed By: #### L 100.0100, L501.5200, L500.4050 ####[facility] [address] [place], [address] GFR/1.73 sq M.predicted among non-blacks MDRD (S/P/Bld) [Vol rate/Area] 122 mL/min/{1.73_m2} Normal >60 [facility] Comment on above: Result Comment: mL/m in/1.73m2 CKD-EPI Creatinine Equation (2020) Performed By: #### L 100.0100, L501.5200, L500.4050 ####[facility] [address] [place], [address] Globulin (S) [Mass/Vol] 2.6 g/dL Normal 2.2-4.2 [facility] Comment on above: Performed By: #### L 100.0100, L501.5200, L500.4050 ####[facility] [address] [place], [address] Glucose [Mass/Vol] 153 mg/dL High 70-99 [facility] Comment on above: Performed By: #### L 100.0100, L501.5200, L500.4050 ####[facility] [address] [place], [address] Potassium [Moles/Vol] 3.9 mmol/L Normal 3.3-5.1 [facility] Comment on above: Performed By: #### L 100.0100, L501.5200, L500.4050 ####[facility] [address] [place], [address] Sodium [Moles/Vol] 138 mmol/L Normal 133-145 [facility] Comment on above: Performed By: #### L 100.0100, L501.5200, L500.4050 ####[facility] [address] [place], [address] T PROT 6.7 g/dL Normal 5.9-8.4 [facility] Comment on above: Performed By: #### L 100.0100, L501.5200, L500.4050 ####[facility] [address] [place], [address] Urea nitrogen [Mass/Vol] 12 mg/dL Normal - [facility] Comment on above: Performed By: #### L 100.0100, L501.5200, L500.4050 ####[facility] [address] [place], [address] Magnesiumon 02-25-2025 Magnesium [Mass/Vol] 2.2 mg/dL Normal 1.5-2.2 [facility] Comment on above: Performed By: #### L 100.0100, L501.5200, L500.4050 ####[facility] [address] [place], [address] Discharge Instructionon - Discharge Instruction Normal [facility] Basic Metabolic Profile (BMP )on 02-20-2025 BUN Normal 12-14 [facility] Comment on above: Result Comment: Canc elled via OM: Order cancelled - Patient discharged Performed By: #### L 500.2500, L100.0500 ####[facility] [address] [place], [address] BUN/CRE Normal 10-20 [facility] Comment on above: Result Comment: Canc elled via OM: Order cancelled - Patient discharged Performed By: #### L 500.2500, L100.0500 ####[facility] [address] [place], [address] Calcium Normal 7.6-11.0 [facility] Comment on above: Result Comment: Canc elled via OM: Order cancelled - Patient discharged Performed By: #### L 500.2500, L100.0500 ####[facility] [address] [place], [address] CL Normal 98-108 [facility] Comment on above: Result Comment: Canc elled via OM: Order cancelled - Patient discharged Performed By: #### L 500.2500, L100.0500 ####[facility] [address] [place], [address] CO2 Normal 21.0-32.0 [facility] Comment on above: Result Comment: Canc elled via OM: Order cancelled - Patient discharged Performed By: #### L 500.2500, L100.0500 ####[facility] [address] [place], [address] CREAT,SERUM Normal 0.70-1.20 [facility] Comment on above: Result Comment: Canc elled via OM: Order cancelled - Patient discharged Performed By: #### L 500.2500, L100.0500 ####[facility] [address] [place], [address] eGFR Normal >60 [facility] Comment on above: Result Comment: Canc elled via OM: Order cancelled - Patient discharged Performed By: #### L 500.2500, L100.0500 ####[facility] [address] [place], [address] GAP Normal 5-15 [facility] Comment on above: Result Comment: Canc elled via OM: Order cancelled - Patient discharged Performed By: #### L 500.2500, L100.0500 ####[facility] [address] [place], [address] GLU Normal 70-99 [facility] Comment on above: Result Comment: Canc elled via OM: Order cancelled - Patient discharged Performed By: #### L 500.2500, L100.0500 ####[facility] [address] [place], [address] Potassium Normal 3.3-5.1 [facility] Comment on above: Result Comment: Canc elled via OM: Order cancelled - Patient discharged Performed By: #### L 500.2500, L100.0500 ####[facility] [address] [place], [address] Basic Metabolic Profile (BMP) Normal 133-145 [facility] Comment on above: Result Comment: Canc elled via OM: Order cancelled - Patient discharged Performed By: #### L 500.2500, L100.0500 ####[facility] [address] [place], [address] Bedside Glucoseon 02-20-2025 FINGERSTICK GLU 143 mg/dL High 74-106 [facility] Comment on above: Result Comment: EDGAR HUNG OF PATIENT CARE PER NURSING PROTOCOL Performed By: #### L 501.080 ####[facility] [address] [place], [address] CBC-Complete Blood Cnt No Di ffon 02-20-2025 HCT Normal 37-47 [facility] Comment on above: Result Comment: Canc elled via OM: Order cancelled - Patient discharged Performed By: #### L 500.2500, L100.0500 ####[facility] [address] [place], [address] HGB Normal 12.0-15.0 [facility] Comment on above: Result Comment: Canc elled via OM: Order cancelled - Patient discharged Performed By: #### L 500.2500, L100.0500 ####[facility] [address] [place], [address] MCH Normal 27.0-32.0 [facility] Comment on above: Result Comment: Canc elled via OM: Order cancelled - Patient discharged Performed By: #### L 500.2500, L100.0500 ####[facility] [address] [place], [address] MCHC Normal 32-36 [facility] Comment on above: Result Comment: Canc elled via OM: Order cancelled - Patient discharged Performed By: #### L 500.2500, L100.0500 ####[facility] [address] [place], [address] MCV Normal 81-99 [facility] Comment on above: Result Comment: Canc elled via OM: Order cancelled - Patient discharged Performed By: #### L 500.2500, L100.0500 ####[facility] [address] [place], [address] PLT Normal 150-450 [facility] Comment on above: Result Comment: Canc elled via OM: Order cancelled - Patient discharged Performed By: #### L 500.2500, L100.0500 ####[facility] [address] [place], [address] RBC Normal 4.2-5.4 [facility] Comment on above: Result Comment: Canc elled via OM: Order cancelled - Patient discharged Performed By: #### L 500.2500, L100.0500 ####[facility] [address] [place], [address] RDW CV Normal 11.6-14.6 [facility] Comment on above: Result Comment: Canc elled via OM: Order cancelled - Patient discharged Performed By: #### L 500.2500, L100.0500 ####[facility] [address] [place], [address] RDW SD Normal 35.1-43.9 [facility] Comment on above: Result Comment: Canc elled via OM: Order cancelled - Patient discharged Performed By: #### L 500.2500, L100.0500 ####[facility] [address] [place], [address] WBC Normal 4.4-11.0 [facility] Comment on above: Result Comment: Canc elled via OM: Order cancelled - Patient discharged Performed By: #### L 500.2500, L100.0500 ####[facility] [address] [place], [address] Basic Metabolic Profile (BMP )on 02-19-2025 BUN Normal 4-19 [facility] Comment on above: Result Comment: Canc elled via OM: insulin off Performed By: #### L 500.2500 ####[facility] [address] [place], [address] Order Comment: Call MD with results STAT Result Comment: Canc elled via OM: MD Ordered Result Comment: OM C ANCEL REQUEST BUN/CRE Normal 10-20 [facility] Comment on above: Result Comment: Canc elled via OM: insulin off Performed By: #### L 500.2500 ####[facility] [address] [place], [address] Order Comment: Call MD with results STAT Result Comment: Canc elled via OM: MD Ordered Result Comment: OM C ANCEL REQUEST Calcium Normal 7.6-11.0 [facility] Comment on above: Result Comment: Canc elled via OM: insulin off Performed By: #### L 500.2500 ####[facility] [address] [place], [place], [address] Order Comment: Call MD with results STAT Result Comment: Canc elled via OM: MD Ordered Result Comment: OM C ANCEL REQUEST CL Normal 98-108 [facility] Comment on above: Result Comment: Canc elled via OM: insulin off Performed By: #### L 500.2500 ####[facility] [address] [place], [place], [address] Order Comment: Call MD with results STAT Result Comment: Canc elled via OM: MD Ordered Result Comment: OM C ANCEL REQUEST CO2 Normal 21.0-32.0 [facility] Comment on above: Result Comment: Canc elled via OM: insulin off Performed By: #### L 500.2500 ####[facility] [address] [place], [address] Order Comment: Call MD with results STAT Result Comment: Canc elled via OM: MD Ordered Result Comment: OM C ANCEL REQUEST CREAT,SERUM Normal 0.70-1.20 [facility] Comment on above: Result Comment: Canc elled via OM: insulin off Performed By: #### L 500.2500 ####[facility] [address] [place], [address] Order Comment: Call with results STAT Result Comment: Canc elled via OM: MD Ordered Result Comment: OM C ANCEL REQUEST eGFR Normal >60 [facility] Comment on above: Result Comment: Canc elled via OM: insulin off Performed By: #### L 500.2500 ####[facility] [address] [place], [address] Order Comment: Call with results STAT Result Comment: Canc elled via OM: MD Ordered Result Comment: OM C ANCEL REQUEST GAP Normal 5-15 [facility] Comment on above: Result Comment: Canc elled via OM: insulin off Performed By: #### L 500.2500 ####[facility] [address] [place], [address] Order Comment: Call MD with results STAT Result Comment: Canc elled via OM: MD Ordered Result Comment: OM C ANCEL REQUEST GLU Normal 70-99 [facility] Comment on above: Result Comment: Canc elled via OM: insulin off Performed By: #### L 500.2500 ####[facility] [address] [place], [place], [address] Order Comment: Call MD with results STAT Result Comment: Canc elled via OM: MD Ordered Result Comment: OM C ANCEL REQUEST Potassium Normal 3.3-5.1 [facility] Comment on above: Result Comment: Canc elled via OM: insulin off Performed By: #### L 500.2500 ####[facility] [address] [place], [address] Order Comment: Call MD with results STAT Result Comment: Canc elled via OM: MD Ordered Result Comment: OM C ANCEL REQUEST Basic Metabolic Profile (BMP) Normal 133-145 [facility] Comment on above: Result Comment: Canc elled via OM: insulin off Performed By: #### L 500.2500 ####[facility] [address] [place], [address] Order Comment: Call MD with results STAT Result Comment: Canc elled via OM: MD Ordered Result Comment: OM C ANCEL REQUEST BUN/CRE 8.8 RATIO Low 10-20 [facility] Comment on above: Performed By: #### L 500.2500 ####[facility] [address] [place], [address] Calcium [Mass/Vol] 8.5 mg/dL Normal 7.6-11.0 [facility] Comment on above: Performed By: #### L 500.2500 ####[facility] [address] [place], [address] Chloride [Moles/Vol] 107 mmol/L Normal 98-108 [facility] Comment on above: Performed By: #### L 500.2500 ####[facility] [address] [place], [address] CO2 [Moles/Vol] 18.6 mmol/L Low 21.0-32.0 [facility] Comment on above: Performed By: #### L 500.2500 ####[facility] [address] [place], [address] Creatinine [Mass/Vol] 0.63 mg/dL Low 0.70-1.20 [facility] Comment on above: Performed By: #### L 500.2500 ####[facility] [address] [place], [address] ECRCL 136.46 ml/min Normal 50-250 [facility] Comment on above: Performed By: #### L 500.2500 ####[facility] [address] [place], [address] GAP 13 Normal 5-15 [facility] Comment on above: Performed By: #### L 500.2500 ####[facility] [address] [place], [address] GFR/1.73 sq M.predicted among non-blacks MDRD (S/P/Bld) [Vol rate/Area] 122 mL/min/{1.73_m2} Normal >60 [facility] Comment on above: Result Comment: mL/m in/1.73m2 CKD-EPI Creatinine Equation (2020) Performed By: #### L 500.2500 ####[facility] [address] [place], [address] Glucose [Mass/Vol] 249 mg/dL High 70-99 [facility] Comment on above: Performed By: #### L 500.2500 ####[facility] [address] [place], [address] Potassium [Moles/Vol] 4.1 mmol/L Normal 3.3-5.1 [facility] Comment on above: Performed By: #### L 500.2500 ####[facility] [address] [place], [address] Sodium [Moles/Vol] 138 mmol/L Normal 133-145 [facility] Comment on above: Performed By: #### L 500.2500 ####[facility] [address] [place], [address] Urea nitrogen [Mass/Vol] 6 mg/dL Normal 4-19 [facility] Comment on above: Performed By: #### L 500.2500 ####[facility] [address] [place], [address] BUN/CRE 10.8 RATIO Normal 10-20 [facility] Comment on above: Performed By: #### L 500.2500, L501.5200, L100.0100 ####[facility] [address] [place], [address] Calcium [Mass/Vol] 8.0 mg/dL Normal 7.6-11.0 [facility] Comment on above: Performed By: #### L 500.2500, L501.5200, L100.0100 ####[facility] [address] [place], [address] Chloride [Moles/Vol] 112 mmol/L High 98-108 [facility] Comment on above: Performed By: #### L 500.2500, L501.5200, L100.0100 ####[facility] [address] [place], [address] CO2 [Moles/Vol] 17.1 mmol/L Low 21.0-32.0 [facility] Comment on above: Performed By: #### L 500.2500, L501.5200, L100.0100 ####[facility] [address] [place], [address] Creatinine [Mass/Vol] 0.57 mg/dL Low 0.70-1.20 [facility] Comment on above: Performed By: #### L 500.2500, L501.5200, L100.0100 ####[facility] [address] [place], [address] ECRCL 150.82 ml/min Normal 50-250 [facility] Comment on above: Performed By: #### L 500.2500, L501.5200, L100.0100 ####[facility] [address] [place], [address] GAP 10 Normal 5-15 [facility] Comment on above: Performed By: #### L 500.2500, L501.5200, L100.0100 ####[facility] [address] [place], [address] GFR/1.73 sq M.predicted among non-blacks MDRD (S/P/Bld) [Vol rate/Area] 126 mL/min/{1.73_m2} Normal >60 [facility] Comment on above: Result Comment: mL/m in/1.73m2 CKD-EPI Creatinine Equation (2020) Performed By: #### L 500.2500, L501.5200, L100.0100 ####[facility] [address] [place], [address] Glucose [Mass/Vol] 81 mg/dL Normal 70-99 [facility] Comment on above: Performed By: #### L 500.2500, L501.5200, L100.0100 ####[facility] [address] [place], [address] Potassium [Moles/Vol] 4.0 mmol/L Normal 3.3-5.1 [facility] Comment on above: Result Comment: Hemo lysis present, Results??could be affected.?? Performed By: #### L 500.2500, L501.5200, L100.0100 ####[facility] [address] [place], [address] Sodium [Moles/Vol] 139 mmol/L Normal 133-145 [facility] Comment on above: Performed By: #### L 500.2500, L501.5200, L100.0100 ####[facility] [address] [place], [address] Urea nitrogen [Mass/Vol] 6 mg/dL Normal 4-19 [facility] Comment on above: Performed By: #### L 500.2500, L501.5200, L100.0100 ####[facility] [address] [place], [address] BUN Normal 4-19 [facility] Comment on above: Order Comment: Call MD with results STAT Result Comment: OM C ANCEL REQUEST Performed By: #### L 500.2500 ####[facility] [address] [place], [address] BUN/CRE Normal 10-20 [facility] Comment on above: Order Comment: Call MD with results STAT Result Comment: OM C ANCEL REQUEST Performed By: #### L 500.2500 ####[facility] [address] [place], [address] Calcium Normal 7.6-11.0 [facility] Comment on above: Order Comment: Call MD with results STAT Result Comment: OM C ANCEL REQUEST Performed By: #### L 500.2500 ####[facility] [address] [place], [address] CL Normal 98-108 [facility] Comment on above: Order Comment: Call MD with results STAT Result Comment: OM C ANCEL REQUEST Performed By: #### L 500.2500 ####[facility] [address] [place], [address] CO2 Normal 21.0-32.0 [facility] Comment on above: Order Comment: Call MD with results STAT Result Comment: OM C ANCEL REQUEST Performed By: #### L 500.2500 ####[facility] [address] [place], [address] CREAT,SERUM Normal 0.70-1.20 [facility] Comment on above: Order Comment: Call MD with results STAT Result Comment: OM C ANCEL REQUEST Performed By: #### L 500.2500 ####[facility] [address] [place], [address] eGFR Normal >60 [facility] Comment on above: Order Comment: Call MD with results STAT Result Comment: OM C ANCEL REQUEST Performed By: #### L 500.2500 ####[facility] [address] [place], [address] GAP Normal 5-15 [facility] Comment on above: Order Comment: Call MD with results STAT Result Comment: OM C ANCEL REQUEST Performed By: #### L 500.2500 ####[facility] [address] [place], [address] GLU Normal 70-99 [facility] Comment on above: Order Comment: Call MD with results STAT Result Comment: OM C ANCEL REQUEST Performed By: #### L 500.2500 ####[facility] [address] [place], [address] Potassium Normal 3.3-5.1 [facility] Comment on above: Order Comment: Call MD with results STAT Result Comment: OM C ANCEL REQUEST Performed By: #### L 500.2500 ####[facility] [address] [place], [address] Basic Metabolic Profile (BMP) Normal 133-145 [facility] Comment on above: Order Comment: Call MD with results STAT Result Comment: OM C ANCEL REQUEST Performed By: #### L 500.2500 ####[facility] [address] [place], [address] BUN/CRE 13.3 RATIO Normal 10-20 [facility] Comment on above: Order Comment: Call MD with results STAT Performed By: #### L 500.2500 ####[facility] [address] [place], [address] Calcium [Mass/Vol] 8.1 mg/dL Normal 7.6-11.0 [facility] Comment on above: Order Comment: Call MD with results STAT Performed By: #### L 500.2500 ####[facility] [address] [place], [address] Chloride [Moles/Vol] 108 mmol/L Normal 98-108 [facility] Comment on above: Order Comment: Call MD with results STAT Performed By: #### L 500.2500 ####[facility] [address] [place], [address] CO2 [Moles/Vol] 17.8 mmol/L Low 21.0-32.0 [facility] Comment on above: Order Comment: Call MD with results STAT Performed By: #### L 500.2500 ####[facility] [address] [place], [address] Creatinine [Mass/Vol] 0.56 mg/dL Low 0.70-1.20 [facility] Comment on above: Order Comment: Call MD with results STAT Performed By: #### L 500.2500 ####[facility] [address] [place], [address] ECRCL 153.51 ml/min Normal 50-250 [facility] Comment on above: Order Comment: Call MD with results STAT Performed By: #### L 500.2500 ####[facility] [address] [place], [address] GAP 12 Normal 5-15 [facility] Comment on above: Order Comment: Call MD with results STAT Performed By: #### L 500.2500 ####[facility] [address] [place], [address] GFR/1.73 sq M.predicted among non-blacks MDRD (S/P/Bld) [Vol rate/Area] 126 mL/min/{1.73_m2} Normal >60 [facility] Comment on above: Order Comment: Call MD with results STAT Result Comment: mL/m in/1.73m2 CKD-EPI Creatinine Equation (2020) Performed By: #### L 500.2500 ####[facility] [address] [place], [address] Glucose [Mass/Vol] 126 mg/dL High 70-99 [facility] Comment on above: Order Comment: Call MD with results STAT Performed By: #### L 500.2500 ####[facility] [address] [place], [address] Potassium [Moles/Vol] 3.7 mmol/L Normal 3.3-5.1 [facility] Comment on above: Order Comment: Call MD with results STAT Performed By: #### L 500.2500 ####[facility] [address] [place], [address] Sodium [Moles/Vol] 137 mmol/L Normal 133-145 [facility] Comment on above: Order Comment: Call MD with results STAT Performed By: #### L 500.2500 ####[facility] [address] [place], [address] Urea nitrogen [Mass/Vol] 7 mg/dL Normal 4-19 [facility] Comment on above: Order Comment: Call MD with results STAT Performed By: #### L 500.2500 ####[facility] [address] [place], [address] Bedside Glucoseon 02-19-2025 FINGERSTICK GLU 141 mg/dL High 74-106 [facility] Comment on above: Result Comment: EDGAR HUNG OF PATIENT CARE PER NURSING PROTOCOL Performed By: #### L 501.080 ####[facility] [address] [place], [address] FINGERSTICK GLU 222 mg/dL High 74-106 [facility] Comment on above: Result Comment: EDGAR GEMENT OF PATIENT CARE PER NURSING PROTOCOL Performed By: #### L 501.080 ####[facility] [address] [place], [address] FINGERSTICK GLU 242 mg/dL High 74-106 [facility] Comment on above: Result Comment: EDGAR GEMENT OF PATIENT CARE PER NURSING PROTOCOL Performed By: #### L 501.080 ####[facility] [address] [place], [address] FINGERSTICK GLU 146 mg/dL High 74-106 [facility] Comment on above: Result Comment: EDGAR GEMENT OF PATIENT CARE PER NURSING PROTOCOL Performed By: #### L 501.080 ####[facility] [address] [place], [address] FINGERSTICK GLU 59 mg/dL Low 74-106 [facility] Comment on above: Result Comment: EDGAR GEMENT OF PATIENT CARE PER NURSING PROTOCOL Performed By: #### L 501.080 ####[facility] [address] [place], [address] FINGERSTICK GLU 93 mg/dL Normal 74-106 [facility] Comment on above: Result Comment: EDGAR GEMENT OF PATIENT CARE PER NURSING PROTOCOL Performed By: #### L 501.080 ####[facility] [address] [place], [address] FINGERSTICK GLU 143 mg/dL High 74-106 [facility] Comment on above: Result Comment: EDGAR GEMENT OF PATIENT CARE PER NURSING PROTOCOL Performed By: #### L 501.080 ####[facility] [address] [place], [address] FINGERSTICK GLU 59 mg/dL Low 74-106 [facility] Comment on above: Result Comment: EDGAR GEMENT OF PATIENT CARE PER NURSING PROTOCOL Performed By: #### L 501.080 ####[facility] [address] [place], [address] FINGERSTICK GLU 76 mg/dL Normal 74-106 [facility] Comment on above: Result Comment: EDGAR GEMENT OF PATIENT CARE PER NURSING PROTOCOL Performed By: #### L 501.080 ####[facility] [address] [place], [address] FINGERSTICK GLU 89 mg/dL Normal 74-106 [facility] Comment on above: Result Comment: EDGAR GEMENT OF PATIENT CARE PER NURSING PROTOCOL Performed By: #### L 501.080 ####[facility] [address] [place], [address] FINGERSTICK GLU 118 mg/dL High 74-106 [facility] Comment on above: Result Comment: EDGAR GEMENT OF PATIENT CARE PER NURSING PROTOCOL Performed By: #### L 501.080 ####[facility] [address] [place], [address] FINGERSTICK GLU 111 mg/dL High 74-106 [facility] Comment on above: Result Comment: EDGAR GEMENT OF PATIENT CARE PER NURSING PROTOCOL Performed By: #### L 501.080 ####[facility] [address] [place], [address] FINGERSTICK GLU 123 mg/dL High 74-106 [facility] Comment on above: Result Comment: EDGAR GEMENT OF PATIENT CARE PER NURSING PROTOCOL Performed By: #### L 501.080 ####[facility] [address] [place], [address] CBC W/Diff, Automatedon 06-2 -2024 Absolute Lymph 1.08 X10 3/uL Normal 0.83-4.51 [facility] Comment on above: Performed By: #### L 500.2500, L501.5200, L100.0100 ####[facility] [address] [place], [address] Absolute Neut 18.3 X10 3/uL High 2.0-7.7 [facility] Comment on above: Performed By: #### L 500.2500, L501.5200, L100.0100 ####[facility] [address] [place], [address] Basophils/100 WBC (Bld) 0.2 % Normal 0-1 [facility] Comment on above: Performed By: #### L 500.2500, L501.5200, L100.0100 ####[facility] [address] [place], [address] Eosinophils/100 WBC (Bld) 0.0 % Normal 0-5 [facility] Comment on above: Performed By: #### L 500.2500, L501.5200, L100.0100 ####[facility] [address] [place], [address] Erythrocyte distribution width (RBC) [Ratio] 13.4 % Normal 11.6-14.6 [facility] Comment on above: Performed By: #### L 500.2500, L501.5200, L100.0100 ####[facility] [address] [place], [address] Hematocrit (Bld) [Volume fraction] 35.4 % Low 37-47 [facility] Comment on above: Performed By: #### L 500.2500, L501.5200, L100.0100 ####[facility] [address] [place], [address] Hemoglobin (Bld) [Mass/Vol] 11.8 g/dL Low 12.0-15.0 [facility] Comment on above: Performed By: #### L 500.2500, L501.5200, L100.0100 ####[facility] [address] [place], [address] IG% 1.000 High 0.0-0.9 [facility] Comment on above: Result Comment: IG% - Immature Granulocytes (promyelocytes, myelocytes andmetamyelocytes) > 1% indicates that a LEFT SHIFT is Present. Performed By: #### L 500.2500, L501.5200, L100.0100 ####[facility] [address] [place], [address] Lymphocytes/100 WBC (Bld) 5.3 % Low 19-41 [facility] Comment on above: Performed By: #### L 500.2500, L501.5200, L100.0100 ####[facility] [address] [place], [address] MCH (RBC) [Entitic mass] 29.7 pg Normal 27.0-32.0 [facility] Comment on above: Performed By: #### L 500.2500, L501.5200, L100.0100 ####[facility] [address] [place], [address] MCHC (RBC) [Mass/Vol] 33.3 g/dL Normal 32-36 [facility] Comment on above: Performed By: #### L 500.2500, L501.5200, L100.0100 ####[facility] [address] [place], [address] MCV (RBC) [Entitic vol] 89.2 fL Normal 81-99 [facility] Comment on above: Performed By: #### L 500.2500, L501.5200, L100.0100 ####[facility] [address] [place], [address] Monocytes/100 WBC (Bld) 4.1 % Normal 0-10 [facility] Comment on above: Performed By: #### L 500.2500, L501.5200, L100.0100 ####[facility] [address] [place], [address] Neutrophils/100 WBC (Bld) 89.4 % High 47-70 [facility] Comment on above: Performed By: #### L 500.2500, L501.5200, L100.0100 ####[facility] [address] [place], [address] Nucleated RBC (Bld) [#/Vol] 0 10*3/uL Normal 0-5 [facility] Comment on above: Performed By: #### L 500.2500, L501.5200, L100.0100 ####[facility] [address] [place], [address] Platelet mean volume (Bld) [Entitic vol] 11.5 fL Normal 6.2-12.0 [facility] Comment on above: Performed By: #### L 500.2500, L501.5200, L100.0100 ####[facility] [address] [place], [address] Platelets (Bld) [#/Vol] 188 10*3/uL Normal 150-450 [facility] Comment on above: Performed By: #### L 500.2500, L501.5200, L100.0100 ####[facility] [address] [place], [address] RBC (Bld) [#/Vol] 3.97 10*6/uL Low 4.2-5.4 [facility] Comment on above: Performed By: #### L 500.2500, L501.5200, L100.0100 ####[facility] [address] [place], [address] RDW SD 43.9 fl Normal 35.1-43.9 [facility] Comment on above: Performed By: #### L 500.2500, L501.5200, L100.0100 ####[facility] [address] [place], [address] WBC (Bld) [#/Vol] 20.5 10*3/uL High 4.4-11.0 [facility] Comment on above: Performed By: #### L 500.2500, L501.5200, L100.0100 ####[facility] [address] [place], [address] Magnesiumon 02-19-2025 Magnesium [Mass/Vol] 2.9 mg/dL High 1.5-2.2 [facility] Comment on above: Performed By: #### L 500.2500, L501.5200, L100.0100 ####[facility] [address] [place], [address] 12 Lead EKGon 02-18-2025 12 Lead EKG Normal [facility] Basic Metabolic Profile (BMP )on 02-18-2025 BUN/CRE 16.4 RATIO Normal 10-20 [facility] Comment on above: Order Comment: Call MD with results STAT Performed By: #### L 500.2500 ####[facility] [address] [place], [address] Calcium [Mass/Vol] 7.8 mg/dL Normal 7.6-11.0 [facility] Comment on above: Order Comment: Call MD with results STAT Performed By: #### L 500.2500 ####[facility] [address] [place], [address] Chloride [Moles/Vol] 107 mmol/L Normal 98-108 [facility] Comment on above: Order Comment: Call MD with results STAT Performed By: #### L 500.2500 ####[facility] [address] [place], [address] CO2 [Moles/Vol] 17.2 mmol/L Low 21.0-32.0 [facility] Comment on above: Order Comment: Call MD with results STAT Performed By: #### L 500.2500 ####[facility] [address] [place], [address] Creatinine [Mass/Vol] 0.57 mg/dL Low 0.70-1.20 [facility] Comment on above: Order Comment: Call MD with results STAT Performed By: #### L 500.2500 ####[facility] [address] [place], [address] ECRCL 150.82 ml/min Normal 50-250 [facility] Comment on above: Order Comment: Call MD with results STAT Performed By: #### L 500.2500 ####[facility] [address] [place], [address] GAP 12 Normal 5-15 [facility] Comment on above: Order Comment: Call MD with results STAT Performed By: #### L 500.2500 ####[facility] [address] [place], [address] GFR/1.73 sq M.predicted among non-blacks MDRD (S/P/Bld) [Vol rate/Area] 125 mL/min/{1.73_m2} Normal >60 [facility] Comment on above: Order Comment: Call MD with results STAT Result Comment: mL/m in/1.73m2 CKD-EPI Creatinine Equation (2020) Performed By: #### L 500.2500 ####[facility] [address] [place], [address] Glucose [Mass/Vol] 111 mg/dL High 70-99 [facility] Comment on above: Order Comment: Call MD with results STAT Performed By: #### L 500.2500 ####[facility] [address] [place], [address] Potassium [Moles/Vol] 3.9 mmol/L Normal 3.3-5.1 [facility] Comment on above: Order Comment: Call MD with results STAT Performed By: #### L 500.2500 ####[facility] [address] [place], [address] Sodium [Moles/Vol] 137 mmol/L Normal 133-145 [facility] Comment on above: Order Comment: Call MD with results STAT Performed By: #### L 500.2500 ####[facility] [address] [place], [address] Urea nitrogen [Mass/Vol] 9 mg/dL Normal 4-19 [facility] Comment on above: Order Comment: Call MD with results STAT Performed By: #### L 500.2500 ####[facility] [address] [place], [address] Bedside Glucoseon 02-18-2025 FINGERSTICK GLU 125 mg/dL High 74-106 [facility] Comment on above: Result Comment: EDGAR GEMENT OF PATIENT CARE PER NURSING PROTOCOL Performed By: #### L 501.080 ####[facility] [address] [place], [address] FINGERSTICK GLU 121 mg/dL High 74-106 [facility] Comment on above: Result Comment: EDGAR GEMENT OF PATIENT CARE PER NURSING PROTOCOL Performed By: #### L 501.080 ####[facility] [address] [place], [address] FINGERSTICK GLU 93 mg/dL Normal 74-106 [facility] Comment on above: Result Comment: EDGAR GEMENT OF PATIENT CARE PER NURSING PROTOCOL Performed By: #### L 501.080 ####[facility] [address] [place], [address] FINGERSTICK GLU 97 mg/dL Normal 74-106 [facility] Comment on above: Result Comment: EDGAR GEMENT OF PATIENT CARE PER NURSING PROTOCOL Performed By: #### L 501.080 ####[facility] [address] [place], [address] FINGERSTICK GLU 144 mg/dL High 74-106 [facility] Comment on above: Result Comment: EDGAR GEMENT OF PATIENT CARE PER NURSING PROTOCOL Performed By: #### L 501.080 ####[facility] [address] [place], [address] FINGERSTICK GLU 265 mg/dL High 74-106 [facility] Comment on above: Result Comment: EDGAR HUNG OF PATIENT CARE PER NURSING PROTOCOL Performed By: #### L 501.080 ####[facility] [address] [place], [address] Beta-Hydroxbytyrateon 2024 BETA-HYDROXYBUT 2.2 mmol/L High 0.0-0.3 [facility] Comment on above: Performed By: #### L 501.6901 ####[facility] [address] [place], [address] CBC W/Diff, Automatedon 01-27 Absolute Lymph 0.88 X10 3/uL Normal 0.83-4.51 [facility] Comment on above: Performed By: #### L 500.4050, L100.0100, L700.6800, L501.2450, L501.5200 ####[facility] [address] [place], [address] Absolute Neut 17.1 X10 3/uL High 2.0-7.7 [facility] Comment on above: Performed By: #### L 500.4050, L100.0100, L700.6800, L501.2450, L501.5200 ####[facility] [address] [place], [address] Basophils/100 WBC (Bld) 0.5 % Normal 0-1 [facility] Comment on above: Performed By: #### L 500.4050, L100.0100, L700.6800, L501.2450, L501.5200 ####[facility] [address] [place], [address] Eosinophils/100 WBC (Bld) 0.0 % Normal 0-5 [facility] Comment on above: Performed By: #### L 500.4050, L100.0100, L700.6800, L501.2450, L501.5200 ####[facility] [address] [place], [address] Erythrocyte distribution width (RBC) [Ratio] 13.3 % Normal 11.6-14.6 [facility] Comment on above: Performed By: #### L 500.4050, L100.0100, L700.6800, L501.2450, L501.5200 ####[facility] [address] [place], [address] Hematocrit (Bld) [Volume fraction] 41.2 % Normal 37-47 [facility] Comment on above: Performed By: #### L 500.4050, L100.0100, L700.6800, L501.2450, L501.5200 ####[facility] [address] [place], [address] Hemoglobin (Bld) [Mass/Vol] 13.7 g/dL Normal 12.0-15.0 [facility] Comment on above: Performed By: #### L 500.4050, L100.0100, L700.6800, L501.2450, L501.5200 ####[facility] [address] [place], [address] IG% 1.600 High 0.0-0.9 [facility] Comment on above: Result Comment: IG% - Immature Granulocytes (promyelocytes, myelocytes andmetamyelocytes) > 1% indicates that a LEFT SHIFT is Present. Performed By: #### L 500.4050, L100.0100, L700.6800, L501.2450, L501.5200 ####[facility] [address] [place], [address] Lymphocytes/100 WBC (Bld) 4.7 % Low 19-41 [facility] Comment on above: Performed By: #### L 500.4050, L100.0100, L700.6800, L501.2450, L501.5200 ####[facility] [address] [place], [address] MCH (RBC) [Entitic mass] 29.3 pg Normal 27.0-32.0 [facility] Comment on above: Performed By: #### L 500.4050, L100.0100, L700.6800, L501.2450, L501.5200 ####[facility] [address] [place], [address] MCHC (RBC) [Mass/Vol] 33.3 g/dL Normal 32-36 [facility] Comment on above: Performed By: #### L 500.4050, L100.0100, L700.6800, L501.2450, L501.5200 ####[facility] [address] [place], [address] MCV (RBC) [Entitic vol] 88.0 fL Normal 81-99 [facility] Comment on above: Performed By: #### L 500.4050, L100.0100, L700.6800, L501.2450, L501.5200 ####[facility] [address] [place], [address] Monocytes/100 WBC (Bld) 2.3 % Normal 0-10 [facility] Comment on above: Performed By: #### L 500.4050, L100.0100, L700.6800, L501.2450, L501.5200 ####[facility] [address] [place], [address] Neutrophils/100 WBC (Bld) 90.9 % High 47-70 [facility] Comment on above: Performed By: #### L 500.4050, L100.0100, L700.6800, L501.2450, L501.5200 ####[facility] [address] [place], [address] Nucleated RBC (Bld) [#/Vol] 0 10*3/uL Normal 0-5 [facility] Comment on above: Performed By: #### L 500.4050, L100.0100, L700.6800, L501.2450, L501.5200 ####[facility] [address] [place], [address] Platelet mean volume (Bld) [Entitic vol] 11.8 fL Normal 6.2-12.0 [facility] Comment on above: Performed By: #### L 500.4050, L100.0100, L700.6800, L501.2450, L501.5200 ####[facility] [address] [place], [address] Platelets (Bld) [#/Vol] 226 10*3/uL Normal 150-450 [facility] Comment on above: Performed By: #### L 500.4050, L100.0100, L700.6800, L501.2450, L501.5200 ####[facility] [address] [place], [address] RBC (Bld) [#/Vol] 4.68 10*6/uL Normal 4.2-5.4 [facility] Comment on above: Performed By: #### L 500.4050, L100.0100, L700.6800, L501.2450, L501.5200 ####[facility] [address] [place], [address] RDW SD 42.8 fl Normal 35.1-43.9 [facility] Comment on above: Performed By: #### L 500.4050, L100.0100, L700.6800, L501.2450, L501.5200 ####[facility] [address] [place], [address] WBC (Bld) [#/Vol] 18.8 10*3/uL High 4.4-11.0 [facility] Comment on above: Performed By: #### L 500.4050, L100.0100, L700.6800, L501.2450, L501.5200 ####[facility] [address] [place], [address] Comprehensive Metabolic Prof ilon 02-18-2025 Albumin [Mass/Vol] 4.3 g/dL Normal 3.5-5.0 [facility] Comment on above: Performed By: #### L 500.4050, L100.0100, L700.6800, L501.2450, L501.5200 ####[facility] [address] [place], [address] Albumin/Globulin [Mass ratio] 1.7 {ratio} Normal 0.9-2.4 [facility] Comment on above: Performed By: #### L 500.4050, L100.0100, L700.6800, L501.2450, L501.5200 ####[facility] [address] [place], [address] ALK PHOS 85 U/L Normal 35-104 [facility] Comment on above: Performed By: #### L 500.4050, L100.0100, L700.6800, L501.2450, L501.5200 ####[facility] [address] [place], [address] ALT [Catalytic activity/Vol] 11 U/L Normal <=34 [facility] Comment on above: Performed By: #### L 500.4050, L100.0100, L700.6800, L501.2450, L501.5200 ####[facility] [address] [place], [address] AST [Catalytic activity/Vol] 17 U/L Normal <=31 [facility] Comment on above: Performed By: #### L 500.4050, L100.0100, L700.6800, L501.2450, L501.5200 ####[facility] [address] [place], [address] Bilirubin [Mass/Vol] 0.79 mg/dL Normal 0.00-1.30 [facility] Comment on above: Performed By: #### L 500.4050, L100.0100, L700.6800, L501.2450, L501.5200 ####[facility] [address] [place], [address] BUN/CRE 15.1 RATIO Normal 10-20 [facility] Comment on above: Performed By: #### L 500.4050, L100.0100, L700.6800, L501.2450, L501.5200 ####[facility] [address] [place], [address] Calcium [Mass/Vol] 9.6 mg/dL Normal 7.6-11.0 [facility] Comment on above: Performed By: #### L 500.4050, L100.0100, L700.6800, L501.2450, L501.5200 ####[facility] [address] [place], [address] Chloride [Moles/Vol] 101 mmol/L Normal 98-108 [facility] Comment on above: Performed By: #### L 500.4050, L100.0100, L700.6800, L501.2450, L501.5200 ####[facility] [address] [place], [address] CO2 [Moles/Vol] 15.4 mmol/L Low 21.0-32.0 [facility] Comment on above: Performed By: #### L 500.4050, L100.0100, L700.6800, L501.2450, L501.5200 ####[facility] [address] [place], [address] Creatinine [Mass/Vol] 0.73 mg/dL Normal 0.70-1.20 [facility] Comment on above: Performed By: #### L 500.4050, L100.0100, L700.6800, L501.2450, L501.5200 ####[facility] [address] [place], [address] GAP 20 High 5-15 [facility] Comment on above: Performed By: #### L 500.4050, L100.0100, L700.6800, L501.2450, L501.5200 ####[facility] [address] [place], [address] GFR/1.73 sq M.predicted among non-blacks MDRD (S/P/Bld) [Vol rate/Area] 114 mL/min/{1.73_m2} Normal >60 [facility] Comment on above: Result Comment: mL/m in/1.73m2 CKD-EPI Creatinine Equation (2020) Performed By: #### L 500.4050, L100.0100, L700.6800, L501.2450, L501.5200 ####[facility] [address] [place], [address] Globulin (S) [Mass/Vol] 2.6 g/dL Normal 2.2-4.2 [facility] Comment on above: Performed By: #### L 500.4050, L100.0100, L700.6800, L501.2450, L501.5200 ####[facility] [address] [place], [address] Glucose [Mass/Vol] 324 mg/dL High 70-99 [facility] Comment on above: Performed By: #### L 500.4050, L100.0100, L700.6800, L501.2450, L501.5200 ####[facility] [address] [place], [address] Potassium [Moles/Vol] 4.2 mmol/L Normal 3.3-5.1 [facility] Comment on above: Performed By: #### L 500.4050, L100.0100, L700.6800, L501.2450, L501.5200 ####[facility] [address] [place], [address] Sodium [Moles/Vol] 136 mmol/L Normal 133-145 [facility] Comment on above: Performed By: #### L 500.4050, L100.0100, L700.6800, L501.2450, L501.5200 ####[facility] [address] [place], [address] T PROT 6.9 g/dL Normal 5.9-8.4 [facility] Comment on above: Performed By: #### L 500.4050, L100.0100, L700.6800, L501.2450, L501.5200 ####[facility] [address] [place], [address] Urea nitrogen [Mass/Vol] 11 mg/dL Normal 4-19 [facility] Comment on above: Performed By: #### L 500.4050, L100.0100, L700.6800, L501.2450, L501.5200 ####[facility] [address] [place], [address] Emergency Department Summary on 02-18-2025 Emergency Department Summary Normal [facility] H AND P Exam - Hospitaliston 02-18-2025 H&P Exam - Hospitalist Normal [facility] Lipaseon 02-18-2025 Lipase [Catalytic activity/Vol] 9 U/L Low 13-75 [facility] Comment on above: Result Comment: Sulma schmitz note:LIPASE revised reference range effective 22.New Lipase methodology. Expected to produce lower valuesthan the previous assay method.NEW Reference Range: 13 - 75 U/L Performed By: #### L 500.4050, L100.0100, L700.6800, L501.2450, L501.5200 ####[facility] [address] [place], [address] Magnesiumon 02-18-2025 Magnesium [Mass/Vol] 1.5 mg/dL Normal 1.5-2.2 [facility] Comment on above: Performed By: #### L 500.4050, L100.0100, L700.6800, L501.2450, L501.5200 ####[facility] [address] [place], [address] ,Serum,hCG Quali.on 02-18-2025 HCG, SERUM QUAL Negative Normal [facility] Comment on above: Performed By: #### L 500.4050, L100.0100, L700.6800, L501.2450, L501.5200 ####[facility] [address] [place], [address] Urinalysis, Completeon 02-18 RBC 0-5 SEEN Normal 0-5 [facility] Comment on above: Order Comment: CLEAN CATCH Performed By: #### L 400.0001 ####[facility] [address] [place], [address] WBC 0-5 SEEN Normal 0-5 [facility] Comment on above: Order Comment: CLEAN CATCH Performed By: #### L 400.0001 ####[facility] [address] [place], [address] EPI,SQUAMOUS 5-10 SEEN Normal 5-10 [facility] Comment on above: Order Comment: CLEAN CATCH Performed By: #### L 400.0001 ####[facility] [address] [place], [address] BACTERIA 0 SEEN Normal None Seen [facility] Comment on above: Order Comment: CLEAN CATCH Performed By: #### L 400.0001 ####[facility] [address] [place], [address] Mucus Ql (Urine sed) 0 SEEN Normal [facility] Comment on above: Order Comment: CLEAN CATCH Performed By: #### L 400.0001 ####[facility] [address] [place], [address] Venous Blood Gason 5 Blood Gas Type ISABELLE [facility] Comment on above: Performed By: #### L 9000.0810 ####[facility] [address] [place], [address] CO2 [Moles/Vol] 22 mmol/L Low 23-33 [facility] Comment on above: Performed By: #### L 9000.0810 ####[facility] [address] [place], [address] HCO3 (Bld) [Moles/Vol] 22 mmol/L Normal 22-26 [facility] Comment on above: Performed By: #### L 9000.0810 ####[facility] [address] [place], [address] O2 Delivery Dev Not entered [facility] Comment on above: Performed By: #### L 9000.0810 ####[facility] [address] [place], [address] SITE Not entered [facility] Comment on above: Performed By: #### L 9000.0810 ####[facility] [address] [place], [address] VBG BE -1 mmol/L Normal -1.0-3.5 [facility] Comment on above: Performed By: #### L 9000.0810 ####[facility] [address] [place], [address] VBG pCO2 26.5 mmHg Low 41-51 [facility] Comment on above: Performed By: #### L 9000.0810 ####[facility] [address] [place], [address] VBG pH 7.52 High 7.32-7.42 [facility] Comment on above: Performed By: #### L 9000.0810 ####[facility] [address] [place], [address] VBG PO2 29 mmHg Normal 25-40 [facility] Comment on above: Performed By: #### L 9000.0810 ####[facility] [address] [place], [address] VBG SO2 64 Normal 50-70 [facility] Comment on above: Performed By: #### L 9000.0810 ####[facility] [address] [place], [address] Hepatitis A AB, Totalon 06-1 HEPATITIS A,TOT Positive Abnormal Negative [facility] Comment on above: Order Comment: KATHY [...] HAVtotal antibody results to IgM (e.g., panel #[id number] HAVAntibody w/ Rfx).Performed at: CB - [facility] [address] [place], [place] [id number] Director: Esteban Jin PhD, Phone: [phone] Performed By: #### L 3890.6102, L3100.0300, L3410.9992, L500.3400, L3890.6301, L500.2500, L501.9520, L3890.6202, L501.9985, L100.0100, L300.3900, L3100.0460 ####[facility] [address] [place], [address] Hepatitis B Core Ab Totalon 02-05-2025 HEP B CORE,TOT Negative Normal Negative [facility] Comment on above: Order Comment: KATHY CALDERON ORDERED BMP,LIVER,CBCD,PT/INR,TSH,HEBSAG,HECAB,HEAT,HEP B CORE, AND ELF.ANTONIA ORDERED CMP AND A1C Performed By: #### L 3890.6102, L3100.0300, L3410.9992, L500.3400, L3890.6301, L500.2500, L501.9520, L3890.6202, L501.9985, L100.0100, L300.3900, L3100.0460 ####[facility] [address] [place], [address] L3410.9992on 02-05-2025 [facility] Misc. COMMENT Normal . [facility] Comment on above: Order Comment: KATHY CALDERON ORDERED BMP,LIVER,CBCD,PT/INR,TSH,HEBSAG,HECAB,HEAT,HEP B CORE, AND ELF.ANTONIA ORDERED CMP AND [id number] Result Comment: Test Ordered: [id number] Enhanced Liver Fibrosis (ELF)ELF(TM) Score 8.11 BN [...] STELLAR trials. J Hepatol. 2020 Feb;73(1):26-39.Performed at: [facility] [address] [id number] Director: Brian Rouse MD, Phone: [phone] at: [facility] [address] [id number] Director: Esteban Jin PhD, Phone: [phone] Performed By: #### L 3890.6102, L3100.0300, L3410.9992, L500.3400, L3890.6301, L500.2500, L501.9520, L3890.6202, L501.9985, L100.0100, L300.3900, L3100.0460 ####[facility] [address] [place], [address] Basic Metabolic Profile (BMP )on 02-03-2025 BUN/CRE 12.4 RATIO Normal 10-20 [facility] Comment on above: Order Comment: KATHY CALDERON ORDERED BMP,LIVER,CBCD,PT/INR,TSH,HEBSAG,HECAB,HEAT,HEP B CORE, AND ELF.ANTONIA ORDERED CMP AND A1C Performed By: #### L 3890.6102, L3100.0300, L3410.9992, L500.3400, L3890.6301, L500.2500, L501.9520, L3890.6202, L501.9985, L100.0100, L300.3900, L3100.0460 ####[facility] [address], [address] Calcium [Mass/Vol] 9.7 mg/dL Normal 7.6-11.0 [facility] Comment on above: Order Comment: KATHY CALDERON ORDERED BMP,LIVER,CBCD,PT/INR,TSH,HEBSAG,HECAB,HEAT,HEP B CORE, AND ELF.APPRENTICESHIP CONSULTANT.SAMANTHAHOF ORDERED CMP AND A1C Performed By: #### L 3890.6102, L3100.0300, L3410.9992, L500.3400, L3890.6301, L500.2500, L501.9520, L3890.6202, L501.9985, L100.0100, L300.3900, L3100.0460 ####[facility] [address] [facility] [place], [place], [phone] Chloride [Moles/Vol] 96 mmol/L Low 98-108 [facility] Comment on above: Order Comment: KATHY CALDERON ORDERED BMP,LIVER,CBCD,PT/INR,TSH,HEBSAG,HECAB,HEAT,HEP B CORE, AND ELF.APPRENTICESHIP CONSULTANT.ATASANDIHOF ORDERED CMP AND A1C Performed By: #### L 3890.6102, L3100.0300, L3410.9992, L500.3400, L3890.6301, L500.2500, L501.9520, L3890.6202, L501.9985, L100.0100, L300.3900, L3100.0460 ####[facility] [address] [facility] [place], [place], [phone] CO2 [Moles/Vol] 22.5 mmol/L Normal 21.0-32.0 [facility] Comment on above: Order Comment: KATHY CALDERON ORDERED BMP,LIVER,CBCD,PT/INR,TSH,HEBSAG,HECAB,HEAT,HEP B CORE, AND ELF.APPRENTICESHIP CONSULTANT.MIKEYNNHOF ORDERED CMP AND A1C Performed By: #### L 3890.6102, L3100.0300, L3410.9992, L500.3400, L3890.6301, L500.2500, L501.9520, L3890.6202, L501.9985, L100.0100, L300.3900, L3100.0460 ####[facility] [address] [place], [address] Creatinine [Mass/Vol] 0.78 mg/dL Normal 0.70-1.20 [facility] Comment on above: Order Comment: KATHY CALDERON ORDERED BMP,LIVER,CBCD,PT/INR,TSH,HEBSAG,HECAB,HEAT,HEP B CORE, AND ELF.ANTONIA ORDERED CMP AND A1C Performed By: #### L 3890.6102, L3100.0300, L3410.9992, L500.3400, L3890.6301, L500.2500, L501.9520, L3890.6202, L501.9985, L100.0100, L300.3900, L3100.0460 ####[facility] [address] [place], [address] GAP 15 Normal 5-15 [facility] Comment on above: Order Comment: KATHY CALDERON ORDERED BMP,LIVER,CBCD,PT/INR,TSH,HEBSAG,HECAB,HEAT,HEP B CORE, AND ELF.ANTONIA ORDERED CMP AND A1C Performed By: #### L 3890.6102, L3100.0300, L3410.9992, L500.3400, L3890.6301, L500.2500, L501.9520, L3890.6202, L501.9985, L100.0100, L300.3900, L3100.0460 ####[facility] [address] [place], [address] GFR/1.73 sq M.predicted among non-blacks MDRD (S/P/Bld) [Vol rate/Area] 106 mL/min/{1.73_m2} Normal >60 [facility] Comment on above: Order Comment: KATHY CALDERON ORDERED BMP,LIVER,CBCD,PT/INR,TSH,HEBSAG,HECAB,HEAT,HEP B CORE, AND ELF.APPRENTICESHIP CONSULTANT.SAMANTHAHOWalter ORDERED CMP AND A1C Result Comment: mL/m in/1.73m2 CKD-EPI Creatinine Equation (2020) Performed By: #### L 3890.6102, L3100.0300, L3410.9992, L500.3400, L3890.6301, L500.2500, L501.9520, L3890.6202, L501.9985, L100.0100, L300.3900, L3100.0460 ####[facility] [address] [place], [place], [address] Glucose [Mass/Vol] 459 mg/dL Invalid Interpretation Code 70-99 [facility] Comment on above: Order Comment: KATHY CALDERON ORDERED BMP,LIVER,CBCD,PT/INR,TSH,HEBSAG,HECAB,HEAT,HEP B CORE, AND ELF.APPRENTICESHIP CONSULTANT.SAMANTHAHOWalter ORDERED CMP AND A1C Result Comment: Crit ical Result(s) Called at: by:??Results read back bysa.LEFT VOICEMAIL @ 8144 Performed By: #### L 3890.6102, L3100.0300, L3410.9992, L500.3400, L3890.6301, L500.2500, L501.9520, L3890.6202, L501.9985, L100.0100, L300.3900, L3100.0460 ####[facility] [address] [place], [place], [phone] Potassium [Moles/Vol] 4.7 mmol/L Normal 3.3-5.1 [facility] Comment on above: Order Comment: KATHY CALDERON ORDERED BMP,LIVER,CBCD,PT/INR,TSH,HEBSAG,HECAB,HEAT,HEP B CORE, AND ELF.APPRENTICESHIP CONSULTANT.SAMANTHAHOWalter ORDERED CMP AND A1C Performed By: #### L 3890.6102, L3100.0300, L3410.9992, L500.3400, L3890.6301, L500.2500, L501.9520, L3890.6202, L501.9985, L100.0100, L300.3900, L3100.0460 ####[facility] [address] [place], [address] Sodium [Moles/Vol] 133 mmol/L Normal 133-145 [facility] Comment on above: Order Comment: KATHY CALDERON ORDERED BMP,LIVER,CBCD,PT/INR,TSH,HEBSAG,HECAB,HEAT,HEP B CORE, AND ELF.APPRENTICESHIP CONSULTANT.AMOS ORDERED CMP AND A1C Performed By: #### L 3890.6102, L3100.0300, L3410.9992, L500.3400, L3890.6301, L500.2500, L501.9520, L3890.6202, L501.9985, L100.0100, L300.3900, L3100.0460 ####[facility] [address], [address] Urea nitrogen [Mass/Vol] 10 mg/dL Normal 4-19 [facility] Comment on above: Order Comment: KATHY CALDERON ORDERED BMP,LIVER,CBCD,PT/INR,TSH,HEBSAG,HECAB,HEAT,HEP B CORE, AND ELF.ANTONIA ORDERED CMP AND A1C Performed By: #### L 3890.6102, L3100.0300, L3410.9992, L500.3400, L3890.6301, L500.2500, L501.9520, L3890.6202, L501.9985, L100.0100, L300.3900, L3100.0460 ####[facility] [address] [place], [place], [id number] CBC W/Diff, Automatedon 06-0 9-2024 Absolute Lymph 1.69 X10 3/uL Normal 0.83-4.51 [facility] Comment on above: Order Comment: KATHY CALDERON ORDERED BMP,LIVER,CBCD,PT/INR,TSH,HEBSAG,HECAB,HEAT,HEP B CORE, AND ELF.ANTONIA ORDERED CMP AND A1C Performed By: #### L 3890.6102, L3100.0300, L3410.9992, L500.3400, L3890.6301, L500.2500, L501.9520, L3890.6202, L501.9985, L100.0100, L300.3900, L3100.0460 ####[facility] [address] [place], [address] Absolute Neut 7.9 X10 3/uL High 2.0-7.7 [facility] Comment on above: Order Comment: KATHY CALDERON ORDERED BMP,LIVER,CBCD,PT/INR,TSH,HEBSAG,HECAB,HEAT,HEP B CORE, AND ELF.ANTONIA ORDERED CMP AND A1C Performed By: #### L 3890.6102, L3100.0300, L3410.9992, L500.3400, L3890.6301, L500.2500, L501.9520, L3890.6202, L501.9985, L100.0100, L300.3900, L3100.0460 ####[facility] [address] [place], [address] Basophils/100 WBC (Bld) 0.5 % Normal 0-1 [facility] Comment on above: Order Comment: KATHY CALDERON ORDERED BMP,LIVER,CBCD,PT/INR,TSH,HEBSAG,HECAB,HEAT,HEP B CORE, AND ELF.ANTONIA ORDERED CMP AND A1C Performed By: #### L 3890.6102, L3100.0300, L3410.9992, L500.3400, L3890.6301, L500.2500, L501.9520, L3890.6202, L501.9985, L100.0100, L300.3900, L3100.0460 ####[facility] [address] [place], [place], [phone] Eosinophils/100 WBC (Bld) 0.5 % Normal 0-5 [facility] Comment on above: Order Comment: KATHY CALDERON ORDERED BMP,LIVER,CBCD,PT/INR,TSH,HEBSAG,HECAB,HEAT,HEP B CORE, AND ELF.ANTONIA ORDERED CMP AND A1C Performed By: #### L 3890.6102, L3100.0300, L3410.9992, L500.3400, L3890.6301, L500.2500, L501.9520, L3890.6202, L501.9985, L100.0100, L300.3900, L3100.0460 ####[facility] [address] [place], [place], [phone] Erythrocyte distribution width (RBC) [Ratio] 13.4 % Normal 11.6-14.6 [facility] Comment on above: Order Comment: KATHY CALDERON ORDERED BMP,LIVER,CBCD,PT/INR,TSH,HEBSAG,HECAB,HEAT,HEP B CORE, AND ELF.ANTONIA ORDERED CMP AND A1C Performed By: #### L 3890.6102, L3100.0300, L3410.9992, L500.3400, L3890.6301, L500.2500, L501.9520, L3890.6202, L501.9985, L100.0100, L300.3900, L3100.0460 ####[facility] [address] [place], [place], [address] Hematocrit (Bld) [Volume fraction] 40.5 % Normal 37-47 [facility] Comment on above: Order Comment: KATHY CALDERON ORDERED BMP,LIVER,CBCD,PT/INR,TSH,HEBSAG,HECAB,HEAT,HEP B CORE, AND ELF.ANTONIA ORDERED CMP AND A1C Performed By: #### L 3890.6102, L3100.0300, L3410.9992, L500.3400, L3890.6301, L500.2500, L501.9520, L3890.6202, L501.9985, L100.0100, L300.3900, L3100.0460 ####[facility] [address] [place], [address] Hemoglobin (Bld) [Mass/Vol] 13.5 g/dL Normal 12.0-15.0 [facility] Comment on above: Order Comment: KATHY CALDERON ORDERED BMP,LIVER,CBCD,PT/INR,TSH,HEBSAG,HECAB,HEAT,HEP B CORE, AND ELF.ANTONIA ORDERED CMP AND A1C Performed By: #### L 3890.6102, L3100.0300, L3410.9992, L500.3400, L3890.6301, L500.2500, L501.9520, L3890.6202, L501.9985, L100.0100, L300.3900, L3100.0460 ####[facility] [address] [place], [address] IG% 1.500 High 0.0-0.9 [facility] Comment on above: Order Comment: KATHY CALDERON ORDERED BMP,LIVER,CBCD,PT/INR,TSH,HEBSAG,HECAB,HEAT,HEP B CORE, AND ELF.ANTONIA ORDERED CMP AND A1C Result Comment: IG% - Immature Granulocytes (promyelocytes, myelocytes andmetamyelocytes) > 1% indicates that a LEFT SHIFT is Present. Performed By: #### L 3890.6102, L3100.0300, L3410.9992, L500.3400, L3890.6301, L500.2500, L501.9520, L3890.6202, L501.9985, L100.0100, L300.3900, L3100.0460 ####[facility] [address] [place], [address] Lymphocytes/100 WBC (Bld) 16.3 % Low 19-41 [facility] Comment on above: Order Comment: KATHY CALDERON ORDERED BMP,LIVER,CBCD,PT/INR,TSH,HEBSAG,HECAB,HEAT,HEP B CORE, AND ELF.APPRENTICESHIP CONSULTANT.SAMANTHAHOWalter ORDERED CMP AND A1C Performed By: #### L 3890.6102, L3100.0300, L3410.9992, L500.3400, L3890.6301, L500.2500, L501.9520, L3890.6202, L501.9985, L100.0100, L300.3900, L3100.0460 ####[facility] [address] [place], [place], [phone] MCH (RBC) [Entitic mass] 29.7 pg Normal 27.0-32.0 [facility] Comment on above: Order Comment: KATHY CALDERON ORDERED BMP,LIVER,CBCD,PT/INR,TSH,HEBSAG,HECAB,HEAT,HEP B CORE, AND ELF.APPRENTICESHIP CONSULTANT.SAMANTHAHOWalter ORDERED CMP AND A1C Performed By: #### L 3890.6102, L3100.0300, L3410.9992, L500.3400, L3890.6301, L500.2500, L501.9520, L3890.6202, L501.9985, L100.0100, L300.3900, L3100.0460 ####[facility] [address] [place], [place], [phone] MCHC (RBC) [Mass/Vol] 33.3 g/dL Normal 32-36 [facility] Comment on above: Order Comment: KATHY CALDERON ORDERED BMP,LIVER,CBCD,PT/INR,TSH,HEBSAG,HECAB,HEAT,HEP B CORE, AND ELF.APPRENTICESHIP CONSULTANT.SAMANTHAHOWalter ORDERED CMP AND A1C Performed By: #### L 3890.6102, L3100.0300, L3410.9992, L500.3400, L3890.6301, L500.2500, L501.9520, L3890.6202, L501.9985, L100.0100, L300.3900, L3100.0460 ####[facility] [address] [place], [address] MCV (RBC) [Entitic vol] 89.0 fL Normal 81-99 [facility] Comment on above: Order Comment: KATHY CALDERON ORDERED BMP,LIVER,CBCD,PT/INR,TSH,HEBSAG,HECAB,HEAT,HEP B CORE, AND ELF.ANTONIA ORDERED CMP AND A1C Performed By: #### L 3890.6102, L3100.0300, L3410.9992, L500.3400, L3890.6301, L500.2500, L501.9520, L3890.6202, L501.9985, L100.0100, L300.3900, L3100.0460 ####[facility] [address] [place], [address] Monocytes/100 WBC (Bld) 4.8 % Normal 0-10 [facility] Comment on above: Order Comment: KATHY CALDERON ORDERED BMP,LIVER,CBCD,PT/INR,TSH,HEBSAG,HECAB,HEAT,HEP B CORE, AND ELF.ANTONIA ORDERED CMP AND A1C Performed By: #### L 3890.6102, L3100.0300, L3410.9992, L500.3400, L3890.6301, L500.2500, L501.9520, L3890.6202, L501.9985, L100.0100, L300.3900, L3100.0460 ####[facility] [address] [facility] [place], [address] Neutrophils/100 WBC (Bld) 76.4 % High 47-70 [facility] Comment on above: Order Comment: KATHY CALDERON ORDERED BMP,LIVER,CBCD,PT/INR,TSH,HEBSAG,HECAB,HEAT,HEP B CORE, AND ELF.SAMANTHAHOWalter ORDERED CMP AND A1C Performed By: #### L 3890.6102, L3100.0300, L3410.9992, L500.3400, L3890.6301, L500.2500, L501.9520, L3890.6202, L501.9985, L100.0100, L300.3900, L3100.0460 ####[facility] [address] [place], [place], [phone] Nucleated RBC (Bld) [#/Vol] 0 10*3/uL Normal 0-5 [facility] Comment on above: Order Comment: KATHY CALDERON ORDERED BMP,LIVER,CBCD,PT/INR,TSH,HEBSAG,HECAB,HEAT,HEP B CORE, AND ELF.APPRENTICESHIP CONSULTANT.SAMANTHAHOWalter ORDERED CMP AND A1C Performed By: #### L 3890.6102, L3100.0300, L3410.9992, L500.3400, L3890.6301, L500.2500, L501.9520, L3890.6202, L501.9985, L100.0100, L300.3900, L3100.0460 ####[facility] [address] [place], [address] Platelet mean volume (Bld) [Entitic vol] 11.5 fL Normal 6.2-12.0 [facility] Comment on above: Order Comment: KATHY CALDERON ORDERED BMP,LIVER,CBCD,PT/INR,TSH,HEBSAG,HECAB,HEAT,HEP B CORE, AND ELF.APPRENTICESHIP CONSULTANT.SAMANTHAHOWalter ORDERED CMP AND A1C Performed By: #### L 3890.6102, L3100.0300, L3410.9992, L500.3400, L3890.6301, L500.2500, L501.9520, L3890.6202, L501.9985, L100.0100, L300.3900, L3100.0460 ####[facility] [address] [facility] [place], [phone] Platelets (Bld) [#/Vol] 215 10*3/uL Normal 150-450 [facility] Comment on above: Order Comment: KATHY CALDERON ORDERED BMP,LIVER,CBCD,PT/INR,TSH,HEBSAG,HECAB,HEAT,HEP B CORE, AND ELF.APPRENTICESHIP CONSULTANT.AMOS ORDERED CMP AND A1C Performed By: #### L 3890.6102, L3100.0300, L3410.9992, L500.3400, L3890.6301, L500.2500, L501.9520, L3890.6202, L501.9985, L100.0100, L300.3900, L3100.0460 ####[facility] [address] [place], [place], [phone]) RBC (Bld) [#/Vol] 4.55 10*6/uL Normal 4.2-5.4 [facility] Comment on above: Order Comment: KATHY CALDERON ORDERED BMP,LIVER,CBCD,PT/INR,TSH,HEBSAG,HECAB,HEAT,HEP B CORE, AND ELF.APPRENTICESHIP CONSULTANT.AMOS ORDERED CMP AND A1C Performed By: #### L 3890.6102, L3100.0300, L3410.9992, L500.3400, L3890.6301, L500.2500, L501.9520, L3890.6202, L501.9985, L100.0100, L300.3900, L3100.0460 ####[facility] [address] [place], [place], [phone]) RDW SD 43.5 fl Normal 35.1-43.9 [facility] Comment on above: Order Comment: KATHY CALDERON ORDERED BMP,LIVER,CBCD,PT/INR,TSH,HEBSAG,HECAB,HEAT,HEP B CORE, AND ELF.APPRENTICESHIP CONSULTANTDAYANA ORDERED CMP AND A1C Performed By: #### L 3890.6102, L3100.0300, L3410.9992, L500.3400, L3890.6301, L500.2500, L501.9520, L3890.6202, L501.9985, L100.0100, L300.3900, L3100.0460 ####[facility] [address] [place], [address] WBC (Bld) [#/Vol] 10.4 10*3/uL Normal 4.4-11.0 [facility] Comment on above: Order Comment: KATHY CALDERON ORDERED BMP,LIVER,CBCD,PT/INR,TSH,HEBSAG,HECAB,HEAT,HEP B CORE, AND ELF.ANTONIA ORDERED CMP AND A1C Performed By: #### L 3890.6102, L3100.0300, L3410.9992, L500.3400, L3890.6301, L500.2500, L501.9520, L3890.6202, L501.9985, L100.0100, L300.3900, L3100.0460 ####[facility] [address] [place], [address] Hemoglobin A1con 02-03-2025 HbA1c (Bld) [Mass fraction] 10.9 % High <=5.6 [facility] Comment on above: Order Comment: KATHY CALDERON ORDERED BMP,LIVER,CBCD,PT/INR,TSH,HEBSAG,HECAB,HEAT,HEP B CORE, AND ELF.ANTONIA ORDERED CMP AND A1C Result Comment: Norm al < 5.7 % Prediabetic 5.7 - 6.4 % Diabetic >or= 6.5 % Please note range changes. Performed By: #### L 3890.6102, L3100.0300, L3410.9992, L500.3400, L3890.6301, L500.2500, L501.9520, L3890.6202, L501.9985, L100.0100, L300.3900, L3100.0460 ####[facility] [address] [place], [place], [address] Hepatitis B Surface Antibody on 02-03-2025 HEP B Surf Ab Non-Reactive Normal [facility] Comment on above: Order Comment: KATHY [...] L500.2500, L501.9520, L3890.6202, L501.9985, L100.0100, L300.3900, L3100.0460 ####[facility] [address] [place], [place], [id number] Hepatitis C Antibodyon 02-03 Hepatitis C Ab Non-Reactive Normal Nonreactive [facility] Comment on above: Order Comment: KATHY [...] testing: HCV Quant by PCR testing -[facility] #[id number] Non Reactive: < 0.8 Equivocal: >/= 0.8 to < 1.0 Reactive: >/= 1.0The CDC requires that a reactive/equivocal HCV antibodyresult be sent out for confirmation. HCV Quant by PCRtesting. Performed By: #### L 3890.6102, L3100.0300, L3410.9992, L500.3400, L3890.6301, L500.2500, L501.9520, L3890.6202, L501.9985, L100.0100, L300.3900, L3100.0460 ####[facility] [address] [place], [place], [id number] L3890.6102on 02-03-2025 HEP B Surf Ag Non-Reactive Normal Nonreactive [facility] Comment on above: Order Comment: KATHY [...] L500.2500, L501.9520, L3890.6202, L501.9985, L100.0100, L300.3900, L3100.0460 ####[facility] [address] [place], [place], [phone] Liver Profileon 02-03-2025 Albumin [Mass/Vol] 4.2 g/dL Normal 3.5-5.0 [facility] Comment on above: Order Comment: KATHY CALDERON ORDERED BMP,LIVER,CBCD,PT/INR,TSH,HEBSAG,HECAB,HEAT,HEP B CORE, AND ELF.ANTONIA ORDERED CMP AND A1C Performed By: #### L 3890.6102, L3100.0300, L3410.9992, L500.3400, L3890.6301, L500.2500, L501.9520, L3890.6202, L501.9985, L100.0100, L300.3900, L3100.0460 ####[facility] [address] [place], [address] ALK PHOS 95 U/L Normal 35-104 [facility] Comment on above: Order Comment: KATHY CALDERON ORDERED BMP,LIVER,CBCD,PT/INR,TSH,HEBSAG,HECAB,HEAT,HEP B CORE, AND ELF.ANTONIA ORDERED CMP AND A1C Performed By: #### L 3890.6102, L3100.0300, L3410.9992, L500.3400, L3890.6301, L500.2500, L501.9520, L3890.6202, L501.9985, L100.0100, L300.3900, L3100.0460 ####[facility] [address] [place], [address] ALT [Catalytic activity/Vol] 29 U/L Normal <=34 [facility] Comment on above: Order Comment: KATHY CALDERON ORDERED BMP,LIVER,CBCD,PT/INR,TSH,HEBSAG,HECAB,HEAT,HEP B CORE, AND ELF.ANTONIA ORDERED CMP AND A1C Performed By: #### L 3890.6102, L3100.0300, L3410.9992, L500.3400, L3890.6301, L500.2500, L501.9520, L3890.6202, L501.9985, L100.0100, L300.3900, L3100.0460 ####[facility] [address] [place], [place], [phone] AST [Catalytic activity/Vol] 18 U/L Normal <=31 [facility] Comment on above: Order Comment: KATHY CALDERON ORDERED BMP,LIVER,CBCD,PT/INR,TSH,HEBSAG,HECAB,HEAT,HEP B CORE, AND ELF.ANTONIA ORDERED CMP AND A1C Performed By: #### L 3890.6102, L3100.0300, L3410.9992, L500.3400, L3890.6301, L500.2500, L501.9520, L3890.6202, L501.9985, L100.0100, L300.3900, L3100.0460 ####[facility] [address] [place], [address] Bilirubin [Mass/Vol] 0.30 mg/dL Normal 0.00-1.30 [facility] Comment on above: Order Comment: KATHY CALDERON ORDERED BMP,LIVER,CBCD,PT/INR,TSH,HEBSAG,HECAB,HEAT,HEP B CORE, AND ELF.ANTONIA ORDERED CMP AND A1C Performed By: #### L 3890.6102, L3100.0300, L3410.9992, L500.3400, L3890.6301, L500.2500, L501.9520, L3890.6202, L501.9985, L100.0100, L300.3900, L3100.0460 ####[facility] [address] [place], [place], [phone] Bilirubin.direct [Mass/Vol] 0.13 mg/dL Normal 0.00-0.30 [facility] Comment on above: Order Comment: KATHY CALDERON ORDERED BMP,LIVER,CBCD,PT/INR,TSH,HEBSAG,HECAB,HEAT,HEP B CORE, AND ELF.ANTONIA ORDERED CMP AND A1C Performed By: #### L 3890.6102, L3100.0300, L3410.9992, L500.3400, L3890.6301, L500.2500, L501.9520, L3890.6202, L501.9985, L100.0100, L300.3900, L3100.0460 ####[facility] [address] [place], [address] Globulin (S) [Mass/Vol] 2.7 g/dL Normal 2.2-4.2 [facility] Comment on above: Order Comment: KATHY CALDERON ORDERED BMP,LIVER,CBCD,PT/INR,TSH,HEBSAG,HECAB,HEAT,HEP B CORE, AND ELF.ANTONIA ORDERED CMP AND A1C Performed By: #### L 3890.6102, L3100.0300, L3410.9992, L500.3400, L3890.6301, L500.2500, L501.9520, L3890.6202, L501.9985, L100.0100, L300.3900, L3100.0460 ####[facility] [address] [place], [place], [phone] T PROT 6.8 g/dL Normal 5.9-8.4 [facility] Comment on above: Order Comment: KATHY CALDERON ORDERED BMP,LIVER,CBCD,PT/INR,TSH,HEBSAG,HECAB,HEAT,HEP B CORE, AND ELF.ANTONIA ORDERED CMP AND A1C Performed By: #### L 3890.6102, L3100.0300, L3410.9992, L500.3400, L3890.6301, L500.2500, L501.9520, L3890.6202, L501.9985, L100.0100, L300.3900, L3100.0460 ####[facility] [address] [place], [place], [phone] Prothrombin Time w/INRon INR Coag (PPP) [Relative time] 0.9 {INR} Normal [facility] Comment on above: Order Comment: KATHY CALDERON ORDERED BMP,LIVER,CBCD,PT/INR,TSH,HEBSAG,HECAB,HEAT,HEP B CORE, AND ELF.ANTONIA ORDERED CMP AND A1C Performed By: #### L 3890.6102, L3100.0300, L3410.9992, L500.3400, L3890.6301, L500.2500, L501.9520, L3890.6202, L501.9985, L100.0100, L300.3900, L3100.0460 ####[facility] [address] [place], [address] PT Coag (PPP) [Time] 11.9 s Normal 11.7-14.9 [facility] Comment on above: Order Comment: KATHY CALDERON ORDERED BMP,LIVER,CBCD,PT/INR,TSH,HEBSAG,HECAB,HEAT,HEP B CORE, AND ELF.ANTONIA ORDERED CMP AND A1C Performed By: #### L 3890.6102, L3100.0300, L3410.9992, L500.3400, L3890.6301, L500.2500, L501.9520, L3890.6202, L501.9985, L100.0100, L300.3900, L3100.0460 ####[facility] [address] [place], [address] Thyroid Stim Hormone (TSH)on 02-03-2025 TSH 1.140 uIU/mL Normal 0.300-4.200 [facility] Comment on above: Order Comment: KATHY CALDERON ORDERED BMP,LIVER,CBCD,PT/INR,TSH,HEBSAG,HECAB,HEAT,HEP B CORE, AND ELF.ANTONIA ORDERED CMP AND A1C Performed By: #### L 3890.6102, L3100.0300, L3410.9992, L500.3400, L3890.6301, L500.2500, L501.9520, L3890.6202, L501.9985, L100.0100, L300.3900, L3100.0460 ####[facility] [address] [place], [address] Basic Metabolic Profile (BMP )on 02-01-2025 BUN Normal 4-19 [facility] Comment on above: Result Comment: Canc elled via OM: Order cancelled - Patient discharged Performed By: #### L 100.0100, L500.2500 ####[facility] [address] [place], [address] BUN/CRE Normal 10-20 [facility] Comment on above: Result Comment: Canc elled via OM: Order cancelled - Patient discharged Performed By: #### L 100.0100, L500.2500 ####[facility] [address] [place], [address] Calcium Normal 7.6-11.0 [facility] Comment on above: Result Comment: Canc elled via OM: Order cancelled - Patient discharged Performed By: #### L 100.0100, L500.2500 ####[facility] [address] [place], [address] CL Normal 98-108 [facility] Comment on above: Result Comment: Canc elled via OM: Order cancelled - Patient discharged Performed By: #### L 100.0100, L500.2500 ####[facility] [address] [place], [address] CO2 Normal 21.0-32.0 [facility] Comment on above: Result Comment: Canc elled via OM: Order cancelled - Patient discharged Performed By: #### L 100.0100, L500.2500 ####[facility] [address] [place], [address] CREAT,SERUM Normal 0.70-1.20 [facility] Comment on above: Result Comment: Canc elled via OM: Order cancelled - Patient discharged Performed By: #### L 100.0100, L500.2500 ####[facility] [address] [place], [address] eGFR Normal >60 [facility] Comment on above: Result Comment: Canc elled via OM: Order cancelled - Patient discharged Performed By: #### L 100.0100, L500.2500 ####[facility] [address] [place], [address] GAP Normal 5-15 [facility] Comment on above: Result Comment: Canc elled via OM: Order cancelled - Patient discharged Performed By: #### L 100.0100, L500.2500 ####[facility] [address] [place], [address] GLU Normal 70-99 [facility] Comment on above: Result Comment: Canc elled via OM: Order cancelled - Patient discharged Performed By: #### L 100.0100, L500.2500 ####[facility] [address] [place], [address] Potassium Normal 3.3-5.1 [facility] Comment on above: Result Comment: Canc elled via OM: Order cancelled - Patient discharged Performed By: #### L 100.0100, L500.2500 ####[facility] [address] [place], [address] Basic Metabolic Profile (BMP) Normal 133-145 [facility] Comment on above: Result Comment: Canc elled via OM: Order cancelled - Patient discharged Performed By: #### L 100.0100, L500.2500 ####[facility] [address] [place], [address] CBC W/Diff, Automatedon 06-0 7-2024 Absolute Neut Normal 2.0-7.7 [facility] Comment on above: Result Comment: Canc elled via OM: Order cancelled - Patient discharged Performed By: #### L 100.0100, L500.2500 ####[facility] [address] [place], [address] HCT Normal 37-47 [facility] Comment on above: Result Comment: Canc elled via OM: Order cancelled - Patient discharged Performed By: #### L 100.0100, L500.2500 ####[facility] [address] [place], [address] HGB Normal 12.0-15.0 [facility] Comment on above: Result Comment: Canc elled via OM: Order cancelled - Patient discharged Performed By: #### L 100.0100, L500.2500 ####[facility] [address] [place], [address] MCH Normal 27.0-32.0 [facility] Comment on above: Result Comment: Canc elled via OM: Order cancelled - Patient discharged Performed By: #### L 100.0100, L500.2500 ####[facility] [address] [place], [address] MCHC Normal 32-36 [facility] Comment on above: Result Comment: Canc elled via OM: Order cancelled - Patient discharged Performed By: #### L 100.0100, L500.2500 ####[facility] [address] [place], [address] MCV Normal 81-99 [facility] Comment on above: Result Comment: Canc elled via OM: Order cancelled - Patient discharged Performed By: #### L 100.0100, L500.2500 ####[facility] [address] [place], [address] NEUT% Normal 47-70 [facility] Comment on above: Result Comment: Canc elled via OM: Order cancelled - Patient discharged Performed By: #### L 100.0100, L500.2500 ####[facility] [address] [place], [address] PLT Normal 150-450 [facility] Comment on above: Result Comment: Canc elled via OM: Order cancelled - Patient discharged Performed By: #### L 100.0100, L500.2500 ####[facility] [address] [place], [address] RBC Normal 4.2-5.4 [facility] Comment on above: Result Comment: Canc elled via OM: Order cancelled - Patient discharged Performed By: #### L 100.0100, L500.2500 ####[facility] [address] [place], [address] RDW CV Normal 11.6-14.6 [facility] Comment on above: Result Comment: Canc elled via OM: Order cancelled - Patient discharged Performed By: #### L 100.0100, L500.2500 ####[facility] [address] [place], [address] RDW SD Normal 35.1-43.9 [facility] Comment on above: Result Comment: Canc elled via OM: Order cancelled - Patient discharged Performed By: #### L 100.0100, L500.2500 ####[facility] [address] [place], [address] WBC Normal 4.4-11.0 [facility] Comment on above: Result Comment: Canc elled via OM: Order cancelled - Patient discharged Performed By: #### L 100.0100, L500.2500 ####[facility] [address] [place], [address] Basic Metabolic Profile (BMP )on 01-31-2025 BUN Normal 4-19 [facility] Comment on above: Result Comment: Canc elled via OM: Order cancelled - Patient discharged Performed By: #### L 100.0100, L500.2500 ####[facility] [address] [place], [address] BUN/CRE Normal 10-20 [facility] Comment on above: Result Comment: Canc elled via OM: Order cancelled - Patient discharged Performed By: #### L 100.0100, L500.2500 ####[facility] [address] [place], [address] Calcium Normal 7.6-11.0 [facility] Comment on above: Result Comment: Canc elled via OM: Order cancelled - Patient discharged Performed By: #### L 100.0100, L500.2500 ####[facility] [address] [place], [address] CL Normal 98-108 [facility] Comment on above: Result Comment: Canc elled via OM: Order cancelled - Patient discharged Performed By: #### L 100.0100, L500.2500 ####[facility] [address] [place], [address] CO2 Normal 21.0-32.0 [facility] Comment on above: Result Comment: Canc elled via OM: Order cancelled - Patient discharged Performed By: #### L 100.0100, L500.2500 ####[facility] [address] [place], [address] CREAT,SERUM Normal 0.70-1.20 [facility] Comment on above: Result Comment: Canc elled via OM: Order cancelled - Patient discharged Performed By: #### L 100.0100, L500.2500 ####[facility] [address] [place], [address] eGFR Normal >60 [facility] Comment on above: Result Comment: Canc elled via OM: Order cancelled - Patient discharged Performed By: #### L 100.0100, L500.2500 ####[facility] [address] [place], [address] GAP Normal 5-15 [facility] Comment on above: Result Comment: Canc elled via OM: Order cancelled - Patient discharged Performed By: #### L 100.0100, L500.2500 ####[facility] [address] [place], [address] GLU Normal 70-99 [facility] Comment on above: Result Comment: Canc elled via OM: Order cancelled - Patient discharged Performed By: #### L 100.0100, L500.2500 ####[facility] [address] [place], [address] Potassium Normal 3.3-5.1 [facility] Comment on above: Result Comment: Canc elled via OM: Order cancelled - Patient discharged Performed By: #### L 100.0100, L500.2500 ####[facility] [address] [place], [address] Basic Metabolic Profile (BMP) Normal 133-145 [facility] Comment on above: Result Comment: Canc elled via OM: Order cancelled - Patient discharged Performed By: #### L 100.0100, L500.2500 ####[facility] [address] [place], [address] CBC W/Diff, Automatedon 06-0 6-2024 Absolute Neut Normal 2.0-7.7 [facility] Comment on above: Result Comment: Canc elled via OM: Order cancelled - Patient discharged Performed By: #### L 100.0100, L500.2500 ####[facility] [address] [place], [address] HCT Normal 37-47 [facility] Comment on above: Result Comment: Canc elled via OM: Order cancelled - Patient discharged Performed By: #### L 100.0100, L500.2500 ####[facility] [address] [place], [address] HGB Normal 12.0-15.0 [facility] Comment on above: Result Comment: Canc elled via OM: Order cancelled - Patient discharged Performed By: #### L 100.0100, L500.2500 ####[facility] [address] [place], [address] MCH Normal 27.0-32.0 [facility] Comment on above: Result Comment: Canc elled via OM: Order cancelled - Patient discharged Performed By: #### L 100.0100, L500.2500 ####[facility] [address] [place], [address] MCHC Normal 32-36 [facility] Comment on above: Result Comment: Canc elled via OM: Order cancelled - Patient discharged Performed By: #### L 100.0100, L500.2500 ####[facility] [address] [place], [address] MCV Normal 81-99 [facility] Comment on above: Result Comment: Canc elled via OM: Order cancelled - Patient discharged Performed By: #### L 100.0100, L500.2500 ####[facility] [address] [place], [address] NEUT% Normal 47-70 [facility] Comment on above: Result Comment: Canc elled via OM: Order cancelled - Patient discharged Performed By: #### L 100.0100, L500.2500 ####[facility] [address] [place], [address] PLT Normal 150-450 [facility] Comment on above: Result Comment: Canc elled via OM: Order cancelled - Patient discharged Performed By: #### L 100.0100, L500.2500 ####[facility] [address] [place], [address] RBC Normal 4.2-5.4 [facility] Comment on above: Result Comment: Canc elled via OM: Order cancelled - Patient discharged Performed By: #### L 100.0100, L500.2500 ####[facility] [address] [place], [address] RDW CV Normal 11.6-14.6 [facility] Comment on above: Result Comment: Canc elled via OM: Order cancelled - Patient discharged Performed By: #### L 100.0100, L500.2500 ####[facility] [address] [place], [address] RDW SD Normal 35.1-43.9 [facility] Comment on above: Result Comment: Canc elled via OM: Order cancelled - Patient discharged Performed By: #### L 100.0100, L500.2500 ####[facility] [address] [place], [address] WBC Normal 4.4-11.0 [facility] Comment on above: Result Comment: Canc elled via OM: Order cancelled - Patient discharged Performed By: #### L 100.0100, L500.2500 ####[facility] [address] [place], [address] Basic Metabolic Profile (BMP )on 01-30-2025 BUN Normal 4-19 [facility] Comment on above: Result Comment: Canc elled via OM: Order cancelled - Patient discharged Performed By: #### L 100.0100, L500.2500 ####[facility] [address] [place], [address] BUN/CRE Normal 10-20 [facility] Comment on above: Result Comment: Canc elled via OM: Order cancelled - Patient discharged Performed By: #### L 100.0100, L500.2500 ####[facility] [address] [place], [address] Calcium Normal 7.6-11.0 [facility] Comment on above: Result Comment: Canc elled via OM: Order cancelled - Patient discharged Performed By: #### L 100.0100, L500.2500 ####[facility] [address] [place], [address] CL Normal 98-108 [facility] Comment on above: Result Comment: Canc elled via OM: Order cancelled - Patient discharged Performed By: #### L 100.0100, L500.2500 ####[facility] [address] [place], [address] CO2 Normal 21.0-32.0 [facility] Comment on above: Result Comment: Canc elled via OM: Order cancelled - Patient discharged Performed By: #### L 100.0100, L500.2500 ####[facility] [address] [place], [address] CREAT,SERUM Normal 0.70-1.20 [facility] Comment on above: Result Comment: Canc elled via OM: Order cancelled - Patient discharged Performed By: #### L 100.0100, L500.2500 ####[facility] [address] [place], [address] eGFR Normal >60 [facility] Comment on above: Result Comment: Canc elled via OM: Order cancelled - Patient discharged Performed By: #### L 100.0100, L500.2500 ####[facility] [address] [place], [address] GAP Normal 5-15 [facility] Comment on above: Result Comment: Canc elled via OM: Order cancelled - Patient discharged Performed By: #### L 100.0100, L500.2500 ####[facility] [address] [place], [address] GLU Normal 70-99 [facility] Comment on above: Result Comment: Canc elled via OM: Order cancelled - Patient discharged Performed By: #### L 100.0100, L500.2500 ####[facility] [address] [place], [address] Potassium Normal 3.3-5.1 [facility] Comment on above: Result Comment: Canc elled via OM: Order cancelled - Patient discharged Performed By: #### L 100.0100, L500.2500 ####[facility] [address] [place], [address] Basic Metabolic Profile (BMP) Normal 133-145 [facility] Comment on above: Result Comment: Canc elled via OM: Order cancelled - Patient discharged Performed By: #### L 100.0100, L500.2500 ####[facility] [address] [place], [address] CBC W/Diff, Automatedon 06-0 -2024 Absolute Neut Normal 2.0-7.7 [facility] Comment on above: Result Comment: Canc elled via OM: Order cancelled - Patient discharged Performed By: #### L 100.0100, L500.2500 ####[facility] [address] [place], [address] HCT Normal 37-47 [facility] Comment on above: Result Comment: Canc elled via OM: Order cancelled - Patient discharged Performed By: #### L 100.0100, L500.2500 ####[facility] [address] [place], [address] HGB Normal 12.0-15.0 [facility] Comment on above: Result Comment: Canc elled via OM: Order cancelled - Patient discharged Performed By: #### L 100.0100, L500.2500 ####[facility] [address] [place], [address] MCH Normal 27.0-32.0 [facility] Comment on above: Result Comment: Canc elled via OM: Order cancelled - Patient discharged Performed By: #### L 100.0100, L500.2500 ####[facility] [address] [place], [address] MCHC Normal 32-36 [facility] Comment on above: Result Comment: Canc elled via OM: Order cancelled - Patient discharged Performed By: #### L 100.0100, L500.2500 ####[facility] [address] [place], [address] MCV Normal 81-99 [facility] Comment on above: Result Comment: Canc elled via OM: Order cancelled - Patient discharged Performed By: #### L 100.0100, L500.2500 ####[facility] [address] [place], [address] NEUT% Normal 47-70 [facility] Comment on above: Result Comment: Canc elled via OM: Order cancelled - Patient discharged Performed By: #### L 100.0100, L500.2500 ####[facility] [address] [place], [address] PLT Normal 150-450 [facility] Comment on above: Result Comment: Canc elled via OM: Order cancelled - Patient discharged Performed By: #### L 100.0100, L500.2500 ####[facility] [address] [place], [address] RBC Normal 4.2-5.4 [facility] Comment on above: Result Comment: Canc elled via OM: Order cancelled - Patient discharged Performed By: #### L 100.0100, L500.2500 ####[facility] [address] [place], [address] RDW CV Normal 11.6-14.6 [facility] Comment on above: Result Comment: Canc elled via OM: Order cancelled - Patient discharged Performed By: #### L 100.0100, L500.2500 ####[facility] [address] [place], [address] RDW SD Normal 35.1-43.9 [facility] Comment on above: Result Comment: Canc elled via OM: Order cancelled - Patient discharged Performed By: #### L 100.0100, L500.2500 ####[facility] [address] [place], [address] WBC Normal 4.4-11.0 [facility] Comment on above: Result Comment: Canc elled via OM: Order cancelled - Patient discharged Performed By: #### L 100.0100, L500.2500 ####[facility] [address] [place], [address] Basic Metabolic Profile (BMP )on 01-29-2025 BUN Normal 4-19 [facility] Comment on above: Result Comment: Canc elled via OM: Order cancelled - Patient discharged Performed By: #### L 100.0100, L500.2500 ####[facility] [address] [place], [address] BUN/CRE Normal 10-20 [facility] Comment on above: Result Comment: Canc elled via OM: Order cancelled - Patient discharged Performed By: #### L 100.0100, L500.2500 ####[facility] [address] [place], [address] Calcium Normal 7.6-11.0 [facility] Comment on above: Result Comment: Canc elled via OM: Order cancelled - Patient discharged Performed By: #### L 100.0100, L500.2500 ####[facility] [address] [place], [address] CL Normal 98-108 [facility] Comment on above: Result Comment: Canc elled via OM: Order cancelled - Patient discharged Performed By: #### L 100.0100, L500.2500 ####[facility] [address] [place], [address] CO2 Normal 21.0-32.0 [facility] Comment on above: Result Comment: Canc elled via OM: Order cancelled - Patient discharged Performed By: #### L 100.0100, L500.2500 ####[facility] [address] [place], [address] CREAT,SERUM Normal 0.70-1.20 [facility] Comment on above: Result Comment: Canc elled via OM: Order cancelled - Patient discharged Performed By: #### L 100.0100, L500.2500 ####[facility] [address] [place], [address] eGFR Normal >60 [facility] Comment on above: Result Comment: Canc elled via OM: Order cancelled - Patient discharged Performed By: #### L 100.0100, L500.2500 ####[facility] [address] [place], [address] GAP Normal 5-15 [facility] Comment on above: Result Comment: Canc elled via OM: Order cancelled - Patient discharged Performed By: #### L 100.0100, L500.2500 ####[facility] [address] [place], [address] GLU Normal 70-99 [facility] Comment on above: Result Comment: Canc elled via OM: Order cancelled - Patient discharged Performed By: #### L 100.0100, L500.2500 ####[facility] [address] [place], [address] Potassium Normal 3.3-5.1 [facility] Comment on above: Result Comment: Canc elled via OM: Order cancelled - Patient discharged Performed By: #### L 100.0100, L500.2500 ####[facility] [address] [place], [address] Basic Metabolic Profile (BMP) Normal 133-145 [facility] Comment on above: Result Comment: Canc elled via OM: Order cancelled - Patient discharged Performed By: #### L 100.0100, L500.2500 ####[facility] [address] [place], [address] CBC W/Diff, Automatedon 06-0 -2024 Absolute Neut Normal 2.0-7.7 [facility] Comment on above: Result Comment: Canc elled via OM: Order cancelled - Patient discharged Performed By: #### L 100.0100, L500.2500 ####[facility] [address] [place], [address] HCT Normal 37-47 [facility] Comment on above: Result Comment: Canc elled via OM: Order cancelled - Patient discharged Performed By: #### L 100.0100, L500.2500 ####[facility] [address] [place], [address] HGB Normal 12.0-15.0 [facility] Comment on above: Result Comment: Canc elled via OM: Order cancelled - Patient discharged Performed By: #### L 100.0100, L500.2500 ####[facility] [address] [place], [address] MCH Normal 27.0-32.0 [facility] Comment on above: Result Comment: Canc elled via OM: Order cancelled - Patient discharged Performed By: #### L 100.0100, L500.2500 ####[facility] [address] [place], [address] MCHC Normal 32-36 [facility] Comment on above: Result Comment: Canc elled via OM: Order cancelled - Patient discharged Performed By: #### L 100.0100, L500.2500 ####[facility] [address] [place], [address] MCV Normal 81-99 [facility] Comment on above: Result Comment: Canc elled via OM: Order cancelled - Patient discharged Performed By: #### L 100.0100, L500.2500 ####[facility] [address] [place], [address] NEUT% Normal 47-70 [facility] Comment on above: Result Comment: Canc elled via OM: Order cancelled - Patient discharged Performed By: #### L 100.0100, L500.2500 ####[facility] [address] [place], [address] PLT Normal 150-450 [facility] Comment on above: Result Comment: Canc elled via OM: Order cancelled - Patient discharged Performed By: #### L 100.0100, L500.2500 ####[facility] [address] [place], [address] RBC Normal 4.2-5.4 [facility] Comment on above: Result Comment: Canc elled via OM: Order cancelled - Patient discharged Performed By: #### L 100.0100, L500.2500 ####[facility] [address] [place], [address] RDW CV Normal 11.6-14.6 [facility] Comment on above: Result Comment: Canc elled via OM: Order cancelled - Patient discharged Performed By: #### L 100.0100, L500.2500 ####[facility] [address] [place], [address] RDW SD Normal 35.1-43.9 [facility] Comment on above: Result Comment: Canc elled via OM: Order cancelled - Patient discharged Performed By: #### L 100.0100, L500.2500 ####[facility] [address] [place], [address] WBC Normal 4.4-11.0 [facility] Comment on above: Result Comment: Canc elled via OM: Order cancelled - Patient discharged Performed By: #### L 100.0100, L500.2500 ####[facility] [address] [place], [address] Basic Metabolic Profile (BMP )on 01-28-2025 BUN Normal 4-19 [facility] Comment on above: Result Comment: Canc elled via OM: Order cancelled - Patient discharged Performed By: #### L 100.0100, L500.2500 ####[facility] [address] [place], [address] BUN/CRE Normal 10-20 [facility] Comment on above: Result Comment: Canc elled via OM: Order cancelled - Patient discharged Performed By: #### L 100.0100, L500.2500 ####[facility] [address] [place], [address] Calcium Normal 7.6-11.0 [facility] Comment on above: Result Comment: Canc elled via OM: Order cancelled - Patient discharged Performed By: #### L 100.0100, L500.2500 ####[facility] [address] [place], [address] CL Normal 98-108 [facility] Comment on above: Result Comment: Canc elled via OM: Order cancelled - Patient discharged Performed By: #### L 100.0100, L500.2500 ####[facility] [address] [place], [address] CO2 Normal 21.0-32.0 [facility] Comment on above: Result Comment: Canc elled via OM: Order cancelled - Patient discharged Performed By: #### L 100.0100, L500.2500 ####[facility] [address] [place], [address] CREAT,SERUM Normal 0.70-1.20 [facility] Comment on above: Result Comment: Canc elled via OM: Order cancelled - Patient discharged Performed By: #### L 100.0100, L500.2500 ####[facility] [address] [place], [address] eGFR Normal >60 [facility] Comment on above: Result Comment: Canc elled via OM: Order cancelled - Patient discharged Performed By: #### L 100.0100, L500.2500 ####[facility] [address] [place], [address] GAP Normal 5-15 [facility] Comment on above: Result Comment: Canc elled via OM: Order cancelled - Patient discharged Performed By: #### L 100.0100, L500.2500 ####[facility] [address] [place], [address] GLU Normal 70-99 [facility] Comment on above: Result Comment: Canc elled via OM: Order cancelled - Patient discharged Performed By: #### L 100.0100, L500.2500 ####[facility] [address] [place], [address] Potassium Normal 3.3-5.1 [facility] Comment on above: Result Comment: Canc elled via OM: Order cancelled - Patient discharged Performed By: #### L 100.0100, L500.2500 ####[facility] [address] [place], [address] Basic Metabolic Profile (BMP) Normal 133-145 [facility] Comment on above: Result Comment: Canc elled via OM: Order cancelled - Patient discharged Performed By: #### L 100.0100, L500.2500 ####[facility] [address] [place], [address] CBC W/Diff, Automatedon 06-0 -2024 Absolute Neut Normal 2.0-7.7 [facility] Comment on above: Result Comment: Canc elled via OM: Order cancelled - Patient discharged Performed By: #### L 100.0100, L500.2500 ####[facility] [address] [place], [address] HCT Normal 37-47 [facility] Comment on above: Result Comment: Canc elled via OM: Order cancelled - Patient discharged Performed By: #### L 100.0100, L500.2500 ####[facility] [address] [place], [address] HGB Normal 12.0-15.0 [facility] Comment on above: Result Comment: Canc elled via OM: Order cancelled - Patient discharged Performed By: #### L 100.0100, L500.2500 ####[facility] [address] [place], [address] MCH Normal 27.0-32.0 [facility] Comment on above: Result Comment: Canc elled via OM: Order cancelled - Patient discharged Performed By: #### L 100.0100, L500.2500 ####[facility] [address] [place], [address] MCHC Normal 32-36 [facility] Comment on above: Result Comment: Canc elled via OM: Order cancelled - Patient discharged Performed By: #### L 100.0100, L500.2500 ####[facility] [address] [place], [address] MCV Normal 81-99 [facility] Comment on above: Result Comment: Canc elled via OM: Order cancelled - Patient discharged Performed By: #### L 100.0100, L500.2500 ####[facility] [address] [place], [address] NEUT% Normal 47-70 [facility] Comment on above: Result Comment: Canc elled via OM: Order cancelled - Patient discharged Performed By: #### L 100.0100, L500.2500 ####[facility] [address] [place], [address] PLT Normal 150-450 [facility] Comment on above: Result Comment: Canc elled via OM: Order cancelled - Patient discharged Performed By: #### L 100.0100, L500.2500 ####[facility] [address] [place], [address] RBC Normal 4.2-5.4 [facility] Comment on above: Result Comment: Canc elled via OM: Order cancelled - Patient discharged Performed By: #### L 100.0100, L500.2500 ####[facility] [address] [place], [address] RDW CV Normal 11.6-14.6 [facility] Comment on above: Result Comment: Canc elled via OM: Order cancelled - Patient discharged Performed By: #### L 100.0100, L500.2500 ####[facility] [address] [place], [address] RDW SD Normal 35.1-43.9 [facility] Comment on above: Result Comment: Canc elled via OM: Order cancelled - Patient discharged Performed By: #### L 100.0100, L500.2500 ####[facility] [address] [place], [address] WBC Normal 4.4-11.0 [facility] Comment on above: Result Comment: Canc elled via OM: Order cancelled - Patient discharged Performed By: #### L 100.0100, L500.2500 ####[facility] [address] [place], [address] Basic Metabolic Profile (BMP )on 01-27-2025 BUN Normal 4-19 [facility] Comment on above: Result Comment: Canc elled via OM: Order cancelled - Patient discharged Performed By: #### L 500.2500, L100.0100 ####[facility] [address] [place], [address] BUN/CRE Normal 10-20 [facility] Comment on above: Result Comment: Canc elled via OM: Order cancelled - Patient discharged Performed By: #### L 500.2500, L100.0100 ####[facility] [address] [place], [address] Calcium Normal 7.6-11.0 [facility] Comment on above: Result Comment: Canc elled via OM: Order cancelled - Patient discharged Performed By: #### L 500.2500, L100.0100 ####[facility] [address] [place], [address] CL Normal 98-108 [facility] Comment on above: Result Comment: Canc elled via OM: Order cancelled - Patient discharged Performed By: #### L 500.2500, L100.0100 ####[facility] [address] [place], [address] CO2 Normal 21.0-32.0 [facility] Comment on above: Result Comment: Canc elled via OM: Order cancelled - Patient discharged Performed By: #### L 500.2500, L100.0100 ####[facility] [address] [place], [address] CREAT,SERUM Normal 0.70-1.20 [facility] Comment on above: Result Comment: Canc elled via OM: Order cancelled - Patient discharged Performed By: #### L 500.2500, L100.0100 ####[facility] [address] [place], [address] eGFR Normal >60 [facility] Comment on above: Result Comment: Canc elled via OM: Order cancelled - Patient discharged Performed By: #### L 500.2500, L100.0100 ####[facility] [address] [place], [address] GAP Normal 5-15 [facility] Comment on above: Result Comment: Canc elled via OM: Order cancelled - Patient discharged Performed By: #### L 500.2500, L100.0100 ####[facility] [address] [place], [address] GLU Normal 70-99 [facility] Comment on above: Result Comment: Canc elled via OM: Order cancelled - Patient discharged Performed By: #### L 500.2500, L100.0100 ####[facility] [address] [place], [address] Potassium Normal 3.3-5.1 [facility] Comment on above: Result Comment: Canc elled via OM: Order cancelled - Patient discharged Performed By: #### L 500.2500, L100.0100 ####[facility] [address] [place], [address] Basic Metabolic Profile (BMP) Normal 133-145 [facility] Comment on above: Result Comment: Canc elled via OM: Order cancelled - Patient discharged Performed By: #### L 500.2500, L100.0100 ####[facility] [address] [place], [address] Bedside Glucoseon 01-27-2025 FINGERSTICK GLU 350 mg/dL High 74-106 [facility] Comment on above: Result Comment: EDGAR GEMENT OF PATIENT CARE PER NURSING PROTOCOL Performed By: #### L 501.080 ####[facility] [address] [place], [address] FINGERSTICK GLU 322 mg/dL High 74-106 [facility] Comment on above: Result Comment: EDGAR GEMENT OF PATIENT CARE PER NURSING PROTOCOL Performed By: #### L 501.080 ####[facility] [address] [place], [address] FINGERSTICK GLU 340 mg/dL High 74-106 [facility] Comment on above: Result Comment: EDGAR GEMENT OF PATIENT CARE PER NURSING PROTOCOL Performed By: #### L 501.080 ####[facility] [address] [place], [address] CBC W/Diff, Automatedon 06-0 Absolute Neut Normal 2.0-7.7 [facility] Comment on above: Result Comment: Canc elled via OM: Order cancelled - Patient discharged Performed By: #### L 500.2500, L100.0100 ####[facility] [address] [place], [address] HCT Normal 37-47 [facility] Comment on above: Result Comment: Canc elled via OM: Order cancelled - Patient discharged Performed By: #### L 500.2500, L100.0100 ####[facility] [address] [place], [address] HGB Normal 12.0-15.0 [facility] Comment on above: Result Comment: Canc elled via OM: Order cancelled - Patient discharged Performed By: #### L 500.2500, L100.0100 ####[facility] [address] [place], [address] MCH Normal 27.0-32.0 [facility] Comment on above: Result Comment: Canc elled via OM: Order cancelled - Patient discharged Performed By: #### L 500.2500, L100.0100 ####[facility] [address] [place], [address] MCHC Normal 32-36 [facility] Comment on above: Result Comment: Canc elled via OM: Order cancelled - Patient discharged Performed By: #### L 500.2500, L100.0100 ####[facility] [address] [place], [address] MCV Normal 81-99 [facility] Comment on above: Result Comment: Canc elled via OM: Order cancelled - Patient discharged Performed By: #### L 500.2500, L100.0100 ####[facility] [address] [place], [address] NEUT% Normal 47-70 [facility] Comment on above: Result Comment: Canc elled via OM: Order cancelled - Patient discharged Performed By: #### L 500.2500, L100.0100 ####[facility] [address] [place], [address] PLT Normal 150-450 [facility] Comment on above: Result Comment: Canc elled via OM: Order cancelled - Patient discharged Performed By: #### L 500.2500, L100.0100 ####[facility] [address] [place], [address] RBC Normal 4.2-5.4 [facility] Comment on above: Result Comment: Canc elled via OM: Order cancelled - Patient discharged Performed By: #### L 500.2500, L100.0100 ####[facility] [address] [place], [address] RDW CV Normal 11.6-14.6 [facility] Comment on above: Result Comment: Canc elled via OM: Order cancelled - Patient discharged Performed By: #### L 500.2500, L100.0100 ####[facility] [address] [place], [address] RDW SD Normal 35.1-43.9 [facility] Comment on above: Result Comment: Canc elled via OM: Order cancelled - Patient discharged Performed By: #### L 500.2500, L100.0100 ####[facility] [address] [place], [address] WBC Normal 4.4-11.0 [facility] Comment on above: Result Comment: Canc elled via OM: Order cancelled - Patient discharged Performed By: #### L 500.2500, L100.0100 ####[facility] [address] [place], [address] Office Visiton 01-27-2025 Follow-up visit [id number] Kathleen Villa 1995 F Date Provider Department Center 01/27/2025 Monica-MISHEL ORTEZ [facility] None Family History Problem Relation Age of Onset Anxiety disorder Mother Multiple sclerosis Father Psoriasis Father Family Status - Relation Status Age at Mother Alive Father Alive Level of Service:33120 [place] OFFICE/OUTPATIENT ESTABLISHED MOD MDM 30 MIN Reason for Visit and Comments: Skin Lesion [[id number]] - (PKN) Normal [facility] Progress Noteon 01-27-2025 Progress Note DATE OF SERVICE: 01/27/2025 PATIENT NAME: Kathleen Villa : 1995 AGE: 29 y.o. CLINIC NUMBER: [id number] Visit type: Established patient Chief Complaint Patient [...] Adhesive? Yes- adhesives. Social History: Born/raised in [place]. Excessive sun exposure: Yes Used tanning beds: [...] exposure. Patien (more content not included)... Normal [facility] Basic Metabolic Profile (BMP )on 01-26-2025 BUN/CRE 7.8 RATIO Low 10-20 [facility] Comment on above: Performed By: #### L 500.2500, L100.0100 ####[facility] [address] [place], [address] Calcium [Mass/Vol] 8.5 mg/dL Normal 7.6-11.0 [facility] Comment on above: Performed By: #### L 500.2500, L100.0100 ####[facility] [address] [place], [address] Chloride [Moles/Vol] 97 mmol/L Low 98-108 [facility] Comment on above: Performed By: #### L 500.2500, L100.0100 ####[facility] [address] [place], [address] CO2 [Moles/Vol] 12.9 mmol/L Low 21.0-32.0 [facility] Comment on above: Performed By: #### L 500.2500, L100.0100 ####[facility] [address] [place], [address] Creatinine [Mass/Vol] 0.76 mg/dL Normal 0.70-1.20 [facility] Comment on above: Performed By: #### L 500.2500, L100.0100 ####[facility] [address] [place], [address] ECRCL 109.19 ml/min Normal 50-250 [facility] Comment on above: Performed By: #### L 500.2500, L100.0100 ####[facility] [address] [place], [address] GAP 24 High 5-15 [facility] Comment on above: Performed By: #### L 500.2500, L100.0100 ####[facility] [address] [place], [address] GFR/1.73 sq M.predicted among non-blacks MDRD (S/P/Bld) [Vol rate/Area] 109 mL/min/{1.73_m2} Normal >60 [facility] Comment on above: Result Comment: mL/m in/1.73m2 CKD-EPI Creatinine Equation (2020) Performed By: #### L 500.2500, L100.0100 ####[facility] [address] [place], [address] Glucose [Mass/Vol] 315 mg/dL High 70-99 [facility] Comment on above: Performed By: #### L 500.2500, L100.0100 ####[facility] [address] [place], [address] Potassium [Moles/Vol] 3.0 mmol/L Low 3.3-5.1 [facility] Comment on above: Performed By: #### L 500.2500, L100.0100 ####[facility] [address] [place], [address] Sodium [Moles/Vol] 133 mmol/L Normal 133-145 [facility] Comment on above: Performed By: #### L 500.2500, L100.0100 ####[facility] [address] [place], [address] Urea nitrogen [Mass/Vol] 6 mg/dL Normal 4-19 [facility] Comment on above: Performed By: #### L 500.2500, L100.0100 ####[facility] [address] [place], [address] Bedside Glucoseon 01-26-2024 FINGERSTICK GLU 328 mg/dL High 74-106 [facility] Comment on above: Result Comment: EDGAR GEMENT OF PATIENT CARE PER NURSING PROTOCOL Performed By: #### L 501.080 ####[facility] [address] [place], [address] FINGERSTICK GLU 306 mg/dL High 74-106 [facility] Comment on above: Result Comment: EDGAR GEMENT OF PATIENT CARE PER NURSING PROTOCOL Performed By: #### L 501.080 ####[facility] [address] [place], [address] CBC W/Diff, Automatedon 06-0 Absolute Lymph 1.50 X10 3/uL Normal 0.83-4.51 [facility] Comment on above: Performed By: #### L 500.2500, L100.0100 ####[facility] [address] [place], [address] Absolute Neut 13.5 X10 3/uL High 2.0-7.7 [facility] Comment on above: Performed By: #### L 500.2500, L100.0100 ####[facility] [address] [place], [address] Basophils/100 WBC (Bld) 0.3 % Normal 0-1 [facility] Comment on above: Performed By: #### L 500.2500, L100.0100 ####[facility] [address] [place], [address] Eosinophils/100 WBC (Bld) 0.0 % Normal 0-5 [facility] Comment on above: Performed By: #### L 500.2500, L100.0100 ####[facility] [address] [place], [address] Erythrocyte distribution width (RBC) [Ratio] 13.1 % Normal 11.6-14.6 [facility] Comment on above: Performed By: #### L 500.2500, L100.0100 ####[facility] [address] [place], [address] Hematocrit (Bld) [Volume fraction] 38.8 % Normal 37-47 [facility] Comment on above: Performed By: #### L 500.2500, L100.0100 ####[facility] [address] [place], [address] Hemoglobin (Bld) [Mass/Vol] 13.4 g/dL Normal 12.0-15.0 [facility] Comment on above: Performed By: #### L 500.2500, L100.0100 ####[facility] [address] [place], [address] IG% 1.300 High 0.0-0.9 [facility] Comment on above: Result Comment: IG% - Immature Granulocytes (promyelocytes, myelocytes andmetamyelocytes) > 1% indicates that a LEFT SHIFT is Present. Performed By: #### L 500.2500, L100.0100 ####[facility] [address] [place], [address] Lymphocytes/100 WBC (Bld) 9.3 % Low 19-41 [facility] Comment on above: Performed By: #### L 500.2500, L100.0100 ####[facility] [address] [place], [address] MCH (RBC) [Entitic mass] 30.0 pg Normal 27.0-32.0 [facility] Comment on above: Performed By: #### L 500.2500, L100.0100 ####[facility] [address] [place], [address] MCHC (RBC) [Mass/Vol] 34.5 g/dL Normal 32-36 [facility] Comment on above: Performed By: #### L 500.2500, L100.0100 ####[facility] [address] [place], [address] MCV (RBC) [Entitic vol] 86.8 fL Normal 81-99 [facility] Comment on above: Performed By: #### L 500.2500, L100.0100 ####[facility] [address] [place], [address] Monocytes/100 WBC (Bld) 5.2 % Normal 0-10 [facility] Comment on above: Performed By: #### L 500.2500, L100.0100 ####[facility] [address] [place], [address] Neutrophils/100 WBC (Bld) 83.9 % High 47-70 [facility] Comment on above: Performed By: #### L 500.2500, L100.0100 ####[facility] [address] [place], [address] Nucleated RBC (Bld) [#/Vol] 0 10*3/uL Normal 0-5 [facility] Comment on above: Performed By: #### L 500.2500, L100.0100 ####[facility] [address] [place], [address] Platelet mean volume (Bld) [Entitic vol] 11.5 fL Normal 6.2-12.0 [facility] Comment on above: Performed By: #### L 500.2500, L100.0100 ####[facility] [address] [place], [address] Platelets (Bld) [#/Vol] 169 10*3/uL Normal 150-450 [facility] Comment on above: Performed By: #### L 500.2500, L100.0100 ####[facility] [address] [place], [address] RBC (Bld) [#/Vol] 4.47 10*6/uL Normal 4.2-5.4 [facility] Comment on above: Performed By: #### L 500.2500, L100.0100 ####[facility] [address] [place], [address] RDW SD 41.1 fl Normal 35.1-43.9 [facility] Comment on above: Performed By: #### L 500.2500, L100.0100 ####[facility] [address] [place], [address] WBC (Bld) [#/Vol] 16.1 10*3/uL High 4.4-11.0 [facility] Comment on above: Performed By: #### L 500.2500, L100.0100 ####[facility] [address] [place], [address] Discharge Instructionon 06-0 Discharge Instruction Normal [facility] Basic Metabolic Profile (BMP )on 01-25-2025 BUN/CRE 8.0 RATIO Low 10-20 [facility] Comment on above: Performed By: #### L 500.2500, L100.0100 ####[facility] [address] [place], [address] Calcium [Mass/Vol] 8.1 mg/dL Normal 7.6-11.0 [facility] Comment on above: Performed By: #### L 500.2500, L100.0100 ####[facility] [address] [place], [address] Chloride [Moles/Vol] 100 mmol/L Normal 98-108 [facility] Comment on above: Performed By: #### L 500.2500, L100.0100 ####[facility] [address] [place], [address] CO2 [Moles/Vol] 14.7 mmol/L Low 21.0-32.0 [facility] Comment on above: Performed By: #### L 500.2500, L100.0100 ####[facility] [address] [place], [address] Creatinine [Mass/Vol] 0.66 mg/dL Low 0.70-1.20 [facility] Comment on above: Performed By: #### L 500.2500, L100.0100 ####[facility] [address] [place], [address] ECRCL 125.73 ml/min Normal 50-250 [facility] Comment on above: Performed By: #### L 500.2500, L100.0100 ####[facility] [address] [place], [address] GAP 22 High 5-15 [facility] Comment on above: Performed By: #### L 500.2500, L100.0100 ####[facility] [address] [place], [address] GFR/1.73 sq M.predicted among non-blacks MDRD (S/P/Bld) [Vol rate/Area] 121 mL/min/{1.73_m2} Normal >60 [facility] Comment on above: Result Comment: mL/m in/1.73m2 CKD-EPI Creatinine Equation (2020) Performed By: #### L 500.2500, L100.0100 ####[facility] [address] [place], [address] Glucose [Mass/Vol] 287 mg/dL High 70-99 [facility] Comment on above: Performed By: #### L 500.2500, L100.0100 ####[facility] [address] [place], [address] Potassium [Moles/Vol] 2.9 mmol/L Low 3.3-5.1 [facility] Comment on above: Performed By: #### L 500.2500, L100.0100 ####[facility] [address] [place], [address] Sodium [Moles/Vol] 136 mmol/L Normal 133-145 [facility] Comment on above: Performed By: #### L 500.2500, L100.0100 ####[facility] [address] [place], [address] Urea nitrogen [Mass/Vol] 5 mg/dL Normal 4-19 [facility] Comment on above: Performed By: #### L 500.2500, L100.0100 ####[facility] [address] [place], [address] Bedside Glucoseon --2024 FINGERSTICK GLU 352 mg/dL High 74-106 [facility] Comment on above: Result Comment: EDGAR GEMENT OF PATIENT CARE PER NURSING PROTOCOL Performed By: #### L 501.080 ####[facility] [address] [place], [address] FINGERSTICK GLU 220 mg/dL High 74-106 [facility] Comment on above: Result Comment: EDGAR GEMENT OF PATIENT CARE PER NURSING PROTOCOL Performed By: #### L 501.080 ####[facility] [address] [place], [address] CBC W/Diff, Automatedon 05- Absolute Lymph 1.08 X10 3/uL Normal 0.83-4.51 [facility] Comment on above: Performed By: #### L 500.2500, L100.0100 ####[facility] [address] [place], [address] Absolute Neut 19.8 X10 3/uL High 2.0-7.7 [facility] Comment on above: Performed By: #### L 500.2500, L100.0100 ####[facility] [address] [place], [address] Basophils/100 WBC (Bld) 0.2 % Normal 0-1 [facility] Comment on above: Performed By: #### L 500.2500, L100.0100 ####[facility] [address] [place], [address] Eosinophils/100 WBC (Bld) 0.0 % Normal 0-5 [facility] Comment on above: Performed By: #### L 500.2500, L100.0100 ####[facility] [address] [place], [address] Erythrocyte distribution width (RBC) [Ratio] 12.9 % Normal 11.6-14.6 [facility] Comment on above: Performed By: #### L 500.2500, L100.0100 ####[facility] [address] [place], [address] Hematocrit (Bld) [Volume fraction] 32.9 % Low 37-47 [facility] Comment on above: Performed By: #### L 500.2500, L100.0100 ####[facility] [address] [place], [address] Hemoglobin (Bld) [Mass/Vol] 11.3 g/dL Low 12.0-15.0 [facility] Comment on above: Performed By: #### L 500.2500, L100.0100 ####[facility] [address] [place], [address] IG% 1.100 High 0.0-0.9 [facility] Comment on above: Result Comment: IG% - Immature Granulocytes (promyelocytes, myelocytes andmetamyelocytes) > 1% indicates that a LEFT SHIFT is Present. Performed By: #### L 500.2500, L100.0100 ####[facility] [address] [place], [address] Lymphocytes/100 WBC (Bld) 4.8 % Low 19-41 [facility] Comment on above: Performed By: #### L 500.2500, L100.0100 ####[facility] [address] [place], [address] MCH (RBC) [Entitic mass] 29.7 pg Normal 27.0-32.0 [facility] Comment on above: Performed By: #### L 500.2500, L100.0100 ####[facility] [address] [place], [address] MCHC (RBC) [Mass/Vol] 34.3 g/dL Normal 32-36 [facility] Comment on above: Performed By: #### L 500.2500, L100.0100 ####[facility] [address] [place], [address] MCV (RBC) [Entitic vol] 86.6 fL Normal 81-99 [facility] Comment on above: Performed By: #### L 500.2500, L100.0100 ####[facility] [address] [place], [address] Monocytes/100 WBC (Bld) 6.8 % Normal 0-10 [facility] Comment on above: Performed By: #### L 500.2500, L100.0100 ####[facility] [address] [place], [address] Neutrophils/100 WBC (Bld) 87.1 % High 47-70 [facility] Comment on above: Performed By: #### L 500.2500, L100.0100 ####[facility] [address] [place], [address] Nucleated RBC (Bld) [#/Vol] 0 10*3/uL Normal 0-5 [facility] Comment on above: Performed By: #### L 500.2500, L100.0100 ####[facility] [address] [place], [address] Platelet mean volume (Bld) [Entitic vol] 12.0 fL Normal 6.2-12.0 [facility] Comment on above: Performed By: #### L 500.2500, L100.0100 ####[facility] [address] [place], [address] Platelets (Bld) [#/Vol] 129 10*3/uL Low 150-450 [facility] Comment on above: Performed By: #### L 500.2500, L100.0100 ####[facility] [address] [place], [address] RBC (Bld) [#/Vol] 3.80 10*6/uL Low 4.2-5.4 [facility] Comment on above: Performed By: #### L 500.2500, L100.0100 ####[facility] [address] [place], [address] RDW SD 40.6 fl Normal 35.1-43.9 [facility] Comment on above: Performed By: #### L 500.2500, L100.0100 ####[facility] [address] [place], [address] WBC (Bld) [#/Vol] 22.7 10*3/uL High 4.4-11.0 [facility] Comment on above: Performed By: #### L 500.2500, L100.0100 ####[facility] [address] [place], [address] Magnesiumon 01-25-2025 Magnesium [Mass/Vol] 1.6 mg/dL Normal 1.5-2.2 [facility] Comment on above: Performed By: #### L 501.5200, L501.2300 ####[facility] [address] [place], [address] Phosphoruson 01-25-2025 Phosphate [Mass/Vol] 2.1 mg/dL Low 2.7-4.5 [facility] Comment on above: Performed By: #### L 501.5200, L501.2300 ####[facility] [address] [place], [address] Basic Metabolic Profile (BMP )on 01-24-2025 BUN/CRE 6.3 RATIO Low 10-20 [facility] Comment on above: Performed By: #### L 500.2500 ####[facility] [address] [place], [address] Calcium [Mass/Vol] 7.6 mg/dL Normal 7.6-11.0 [facility] Comment on above: Performed By: #### L 500.2500 ####[facility] [address] [place], [address] Chloride [Moles/Vol] 111 mmol/L High 98-108 [facility] Comment on above: Performed By: #### L 500.2500 ####[facility] [address] [place], [address] CO2 [Moles/Vol] 18.8 mmol/L Low 21.0-32.0 [facility] Comment on above: Performed By: #### L 500.2500 ####[facility] [address] [place], [address] Creatinine [Mass/Vol] 0.64 mg/dL Low 0.70-1.20 [facility] Comment on above: Performed By: #### L 500.2500 ####[facility] [address] [place], [address] ECRCL 129.66 ml/min Normal 50-250 [facility] Comment on above: Performed By: #### L 500.2500 ####[facility] [address] [place], [address] GAP 6 Normal 5-15 [facility] Comment on above: Performed By: #### L 500.2500 ####[facility] [address] [place], [address] GFR/1.73 sq M.predicted among non-blacks MDRD (S/P/Bld) [Vol rate/Area] 122 mL/min/{1.73_m2} Normal >60 [facility] Comment on above: Result Comment: mL/m in/1.73m2 CKD-EPI Creatinine Equation (2020) Performed By: #### L 500.2500 ####[facility] [address] [place], [address] Glucose [Mass/Vol] 182 mg/dL High 70-99 [facility] Comment on above: Performed By: #### L 500.2500 ####[facility] [address] [place], [address] Potassium [Moles/Vol] 3.9 mmol/L Normal 3.3-5.1 [facility] Comment on above: Performed By: #### L 500.2500 ####[facility] [address] [place], [address] Sodium [Moles/Vol] 136 mmol/L Normal 133-145 [facility] Comment on above: Performed By: #### L 500.2500 ####[facility] [address] [place], [address] Urea nitrogen [Mass/Vol] 4 mg/dL Normal 4-19 [facility] Comment on above: Performed By: #### L 500.2500 ####[facility] [address] [place], [address] CO2 [Moles/Vol] 9.9 mmol/L Invalid Interpretation Code 21.0-32.0 [facility] Comment on above: Order Comment: Call [...] by same. Performed By: #### L 500.2500 ####[facility] [address] [place], [address] BUN/CRE 8.6 RATIO Low 10-20 [facility] Comment on above: Order Comment: Call MD with results STAT Performed By: #### L 500.2500 ####[facility] [address] [place], [address] Calcium [Mass/Vol] 7.8 mg/dL Normal 7.6-11.0 [facility] Comment on above: Order Comment: Call MD with results STAT Performed By: #### L 500.2500 ####[facility] [address] [place], [address] Chloride [Moles/Vol] 113 mmol/L High 98-108 [facility] Comment on above: Order Comment: Call MD with results STAT Performed By: #### L 500.2500 ####[facility] [address] [place], [address] CO2 [Moles/Vol] 18.6 mmol/L Low 21.0-32.0 [facility] Comment on above: Order Comment: Call MD with results STAT Performed By: #### L 500.2500 ####[facility] [address] [place], [address] Creatinine [Mass/Vol] 0.65 mg/dL Low 0.70-1.20 [facility] Comment on above: Order Comment: Call MD with results STAT Performed By: #### L 500.2500 ####[facility] [address] [place], [address] ECRCL 127.66 ml/min Normal 50-250 [facility] Comment on above: Order Comment: Call MD with results STAT Performed By: #### L 500.2500 ####[facility] [address] [place], [address] GAP 9 Normal 5-15 [facility] Comment on above: Order Comment: Call MD with results STAT Performed By: #### L 500.2500 ####[facility] [address] [place], [address] GFR/1.73 sq M.predicted among non-blacks MDRD (S/P/Bld) [Vol rate/Area] 121 mL/min/{1.73_m2} Normal >60 [facility] Comment on above: Order Comment: Call MD with results STAT Result Comment: mL/m in/1.73m2 CKD-EPI Creatinine Equation (2020) Performed By: #### L 500.2500 ####[facility] [address] [place], [address] Glucose [Mass/Vol] 121 mg/dL High 70-99 [facility] Comment on above: Order Comment: Call MD with results STAT Performed By: #### L 500.2500 ####[facility] [address] [place], [address] Potassium [Moles/Vol] 2.9 mmol/L Low 3.3-5.1 [facility] Comment on above: Order Comment: Call MD with results STAT Performed By: #### L 500.2500 ####[facility] [address] [place], [address] Sodium [Moles/Vol] 141 mmol/L Normal 133-145 [facility] Comment on above: Order Comment: Call MD with results STAT Performed By: #### L 500.2500 ####[facility] [address] [place], [address] Urea nitrogen [Mass/Vol] 6 mg/dL Normal 4-19 [facility] Comment on above: Order Comment: Call MD with results STAT Performed By: #### L 500.2500 ####[facility] [address] [place], [address] Bedside Glucoseon 01-24-2025 FINGERSTICK GLU 304 mg/dL High [address] [place] [address] Comment on above: Result Comment: EDGAR GEMENT OF PATIENT CARE PER NURSING PROTOCOL Performed By: #### L 501.080 ####[facility] [address] [place], [address] FINGERSTICK GLU 239 mg/dL High [address] [place] [address] Comment on above: Result Comment: EDGAR GEMENT OF PATIENT CARE PER NURSING PROTOCOL Performed By: #### L 501.080 ####[facility] [address] [place], [address] FINGERSTICK GLU 400 mg/dL High [address] [place] [address] Comment on above: Result Comment: EDGAR GEMENT OF PATIENT CARE PER NURSING PROTOCOL Performed By: #### L 501.080 ####[facility] [address] [place], [address] FINGERSTICK GLU 309 mg/dL High [address] [place] [address] Comment on above: Result Comment: EDGAR GEMENT OF PATIENT CARE PER NURSING PROTOCOL Performed By: #### L 501.080 ####[facility] [address] [place], [address] FINGERSTICK GLU 261 mg/dL High [address] [place] [address] Comment on above: Result Comment: EDGAR GEMENT OF PATIENT CARE PER NURSING PROTOCOL Performed By: #### L 501.080 ####[facility] [address] [place], [address] FINGERSTICK GLU 129 mg/dL High 74-106 [facility] Comment on above: Result Comment: EDGAR GEMENT OF PATIENT CARE PER NURSING PROTOCOL Performed By: #### L 501.080 ####[facility] [address] [place], [address] FINGERSTICK GLU 177 mg/dL High 74-106 [facility] Comment on above: Result Comment: EDGAR GEMENT OF PATIENT CARE PER NURSING PROTOCOL Performed By: #### L 501.080 ####[facility] [address] [place], [address] FINGERSTICK GLU 167 mg/dL High 74-106 [facility] Comment on above: Result Comment: EDGAR GEMENT OF PATIENT CARE PER NURSING PROTOCOL Performed By: #### L 501.080 ####[facility] [address] [place], [address] FINGERSTICK GLU 172 mg/dL High 74-106 [facility] Comment on above: Result Comment: EDGAR GEMENT OF PATIENT CARE PER NURSING PROTOCOL Performed By: #### L 501.080 ####[facility] [address] [place], [address] FINGERSTICK GLU 156 mg/dL High 74-106 [facility] Comment on above: Result Comment: EDGAR GEMENT OF PATIENT CARE PER NURSING PROTOCOL Performed By: #### L 501.080 ####[facility] [address] [place], [address] FINGERSTICK GLU 123 mg/dL High 74-106 [facility] Comment on above: Result Comment: EDGAR GEMENT OF PATIENT CARE PER NURSING PROTOCOL Performed By: #### L 501.080 ####[facility] [address] [place], [address] FINGERSTICK GLU 97 mg/dL Normal 74-106 [facility] Comment on above: Result Comment: EDGAR GEMENT OF PATIENT CARE PER NURSING PROTOCOL Performed By: #### L 501.080 ####[facility] [address] [place], [address] FINGERSTICK GLU 115 mg/dL High 74-106 [facility] Comment on above: Result Comment: EDGAR GEMENT OF PATIENT CARE PER NURSING PROTOCOL Performed By: #### L 501.080 ####[facility] [address] [place], [address] FINGERSTICK GLU 143 mg/dL High 74-106 [facility] Comment on above: Result Comment: EDGAR GEMENT OF PATIENT CARE PER NURSING PROTOCOL Performed By: #### L 501.080 ####[facility] [address] [place], [address] CBC W/Diff, Automatedon 05-3 SMEAR COMMENT COMMENT Normal [facility] Comment on above: Result Comment: LYMP HOPENIA. Performed By: #### L 100.0100 ####[facility] [address] [place], [address] PLT EST MOD DEC Normal ADEQ [facility] Comment on above: Performed By: #### L 100.0100 ####[facility] [address] [place], [address] Basic Metabolic Profile (BMP )on 01-23-2025 BUN/CRE 11.7 RATIO Normal 10-20 [facility] Comment on above: Order Comment: Call MD with results STAT Performed By: #### L 500.2500 ####[facility] [address] [place], [address] Calcium [Mass/Vol] 7.7 mg/dL Normal 7.6-11.0 [facility] Comment on above: Order Comment: Call MD with results STAT Performed By: #### L 500.2500 ####[facility] [address] [place], [address] Chloride [Moles/Vol] 112 mmol/L High 98-108 [facility] Comment on above: Order Comment: Call MD with results STAT Performed By: #### L 500.2500 ####[facility] [address] [place], [address] CO2 [Moles/Vol] 16.8 mmol/L Low 21.0-32.0 [facility] Comment on above: Order Comment: Call MD with results STAT Performed By: #### L 500.2500 ####[facility] [address] [place], [address] Creatinine [Mass/Vol] 0.64 mg/dL Low 0.70-1.20 [facility] Comment on above: Order Comment: Call MD with results STAT Performed By: #### L 500.2500 ####[facility] [address] [place], [address] ECRCL 129.66 ml/min Normal 50-250 [facility] Comment on above: Order Comment: Call MD with results STAT Performed By: #### L 500.2500 ####[facility] [address] [place], [address] GAP 10 Normal 5-15 [facility] Comment on above: Order Comment: Call MD with results STAT Performed By: #### L 500.2500 ####[facility] [address] [place], [address] GFR/1.73 sq M.predicted among non-blacks MDRD (S/P/Bld) [Vol rate/Area] 122 mL/min/{1.73_m2} Normal >60 [facility] Comment on above: Order Comment: Call MD with results STAT Result Comment: mL/m in/1.73m2 CKD-EPI Creatinine Equation (2020) Performed By: #### L 500.2500 ####[facility] [address] [place], [address] Glucose [Mass/Vol] 150 mg/dL High 70-99 [facility] Comment on above: Order Comment: Call MD with results STAT Performed By: #### L 500.2500 ####[facility] [address] [place], [address] Potassium [Moles/Vol] 3.2 mmol/L Low 3.3-5.1 [facility] Comment on above: Order Comment: Call MD with results STAT Performed By: #### L 500.2500 ####[facility] [address] [place], [address] Sodium [Moles/Vol] 139 mmol/L Normal 133-145 [facility] Comment on above: Order Comment: Call MD with results STAT Performed By: #### L 500.2500 ####[facility] [address] [place], [address] Urea nitrogen [Mass/Vol] 8 mg/dL Normal 4-19 [facility] Comment on above: Order Comment: Call MD with results STAT Performed By: #### L 500.2500 ####[facility] [address] [place], [address] BUN/CRE 14.4 RATIO Normal 10-20 [facility] Comment on above: Order Comment: Call MD with results STAT Performed By: #### L 500.2500 ####[facility] [address] [place], [address] Calcium [Mass/Vol] 7.5 mg/dL Low 7.6-11.0 [facility] Comment on above: Order Comment: Call MD with results STAT Performed By: #### L 500.2500 ####[facility] [address] [place], [address] Chloride [Moles/Vol] 112 mmol/L High 98-108 [facility] Comment on above: Order Comment: Call MD with results STAT Performed By: #### L 500.2500 ####[facility] [address] [place], [address] CO2 [Moles/Vol] 13.6 mmol/L Low 21.0-32.0 [facility] Comment on above: Order Comment: Call MD with results STAT Performed By: #### L 500.2500 ####[facility] [address] [place], [address] Creatinine [Mass/Vol] 0.69 mg/dL Low 0.70-1.20 [facility] Comment on above: Order Comment: Call MD with results STAT Performed By: #### L 500.2500 ####[facility] [address] [place], [address] ECRCL 120.26 ml/min Normal 50-250 [facility] Comment on above: Order Comment: Call MD with results STAT Performed By: #### L 500.2500 ####[facility] [address] [place], [address] GAP 13 Normal 5-15 [facility] Comment on above: Order Comment: Call MD with results STAT Performed By: #### L 500.2500 ####[facility] [address] [place], [address] GFR/1.73 sq M.predicted among non-blacks MDRD (S/P/Bld) [Vol rate/Area] 120 mL/min/{1.73_m2} Normal >60 [facility] Comment on above: Order Comment: Call MD with results STAT Result Comment: mL/m in/1.73m2 CKD-EPI Creatinine Equation (2020) Performed By: #### L 500.2500 ####[facility] [address] [place], [address] Glucose [Mass/Vol] 139 mg/dL High 70-99 [facility] Comment on above: Order Comment: Call MD with results STAT Performed By: #### L 500.2500 ####[facility] [address] [place], [address] Potassium [Moles/Vol] 3.4 mmol/L Normal 3.3-5.1 [facility] Comment on above: Order Comment: Call MD with results STAT Performed By: #### L 500.2500 ####[facility] [address] [place], [address] Sodium [Moles/Vol] 139 mmol/L Normal 133-145 [facility] Comment on above: Order Comment: Call MD with results STAT Performed By: #### L 500.2500 ####[facility] [address] [place], [address] Urea nitrogen [Mass/Vol] 10 mg/dL Normal 4-19 [facility] Comment on above: Order Comment: Call MD with results STAT Performed By: #### L 500.2500 ####[facility] [address] [place], [address] BUN/CRE 16.3 RATIO Normal 10-20 [facility] Comment on above: Order Comment: Call MD with results STAT Performed By: #### L 500.2500 ####[facility] [address] [place], [address] Calcium [Mass/Vol] 7.6 mg/dL Normal 7.6-11.0 [facility] Comment on above: Order Comment: Call MD with results STAT Performed By: #### L 500.2500 ####[facility] [address] [place], [address] Chloride [Moles/Vol] 110 mmol/L High 98-108 [facility] Comment on above: Order Comment: Call MD with results STAT Performed By: #### L 500.2500 ####[facility] [address] [place], [address] CO2 [Moles/Vol] 12.5 mmol/L Low 21.0-32.0 [facility] Comment on above: Order Comment: Call MD with results STAT Performed By: #### L 500.2500 ####[facility] [address] [place], [address] Creatinine [Mass/Vol] 0.72 mg/dL Normal 0.70-1.20 [facility] Comment on above: Order Comment: Call MD with results STAT Performed By: #### L 500.2500 ####[facility] [address] [place], [address] ECRCL 115.25 ml/min Normal 50-250 [facility] Comment on above: Order Comment: Call MD with results STAT Performed By: #### L 500.2500 ####[facility] [address] [place], [address] GAP 16 High 5-15 [facility] Comment on above: Order Comment: Call MD with results STAT Performed By: #### L 500.2500 ####[facility] [address] [place], [address] GFR/1.73 sq M.predicted among non-blacks MDRD (S/P/Bld) [Vol rate/Area] 115 mL/min/{1.73_m2} Normal >60 [facility] Comment on above: Order Comment: Call MD with results STAT Result Comment: mL/m in/1.73m2 CKD-EPI Creatinine Equation (2020) Performed By: #### L 500.2500 ####[facility] [address] [place], [address] Glucose [Mass/Vol] 176 mg/dL High 70-99 [facility] Comment on above: Order Comment: Call MD with results STAT Performed By: #### L 500.2500 ####[facility] [address] [place], [address] Potassium [Moles/Vol] 3.7 mmol/L Normal 3.3-5.1 [facility] Comment on above: Order Comment: Call MD with results STAT Performed By: #### L 500.2500 ####[facility] [address] [place], [address] Sodium [Moles/Vol] 138 mmol/L Normal 133-145 [facility] Comment on above: Order Comment: Call MD with results STAT Performed By: #### L 500.2500 ####[facility] [address] [place], [address] Urea nitrogen [Mass/Vol] 12 mg/dL Normal 4-19 [facility] Comment on above: Order Comment: Call MD with results STAT Performed By: #### L 500.2500 ####[facility] [address] [place], [address] BUN/CRE 16.2 RATIO Normal 10-20 [facility] Comment on above: Order Comment: Call MD with results STAT Performed By: #### L 500.2500 ####[facility] [address] [place], [address] Calcium [Mass/Vol] 7.6 mg/dL Normal 7.6-11.0 [facility] Comment on above: Order Comment: Call MD with results STAT Performed By: #### L 500.2500 ####[facility] [address] [place], [address] Chloride [Moles/Vol] 111 mmol/L High 98-108 [facility] Comment on above: Order Comment: Call MD with results STAT Performed By: #### L 500.2500 ####[facility] [address] [place], [address] CO2 [Moles/Vol] 11.0 mmol/L Low 21.0-32.0 [facility] Comment on above: Order Comment: Call MD with results STAT Performed By: #### L 500.2500 ####[facility] [address] [place], [address] Creatinine [Mass/Vol] 0.81 mg/dL Normal 0.70-1.20 [facility] Comment on above: Order Comment: Call MD with results STAT Performed By: #### L 500.2500 ####[facility] [address] [place], [address] ECRCL 102.45 ml/min Normal 50-250 [facility] Comment on above: Order Comment: Call MD with results STAT Performed By: #### L 500.2500 ####[facility] [address] [place], [address] GAP 18 High 5-15 [facility] Comment on above: Order Comment: Call MD with results STAT Performed By: #### L 500.2500 ####[facility] [address] [place], [address] GFR/1.73 sq M.predicted among non-blacks MDRD (S/P/Bld) [Vol rate/Area] 100 mL/min/{1.73_m2} Normal >60 [facility] Comment on above: Order Comment: Call MD with results STAT Result Comment: mL/m in/1.73m2 CKD-EPI Creatinine Equation (2020) Performed By: #### L 500.2500 ####[facility] [address] [place], [address] Glucose [Mass/Vol] 209 mg/dL High 70-99 [facility] Comment on above: Order Comment: Call MD with results STAT Performed By: #### L 500.2500 ####[facility] [address] [place], [address] Potassium [Moles/Vol] 4.5 mmol/L Normal 3.3-5.1 [facility] Comment on above: Order Comment: Call MD with results STAT Result Comment: Hemo lysis present, Results??could be affected.?? Performed By: #### L 500.2500 ####[facility] [address] [place], [address] Sodium [Moles/Vol] 140 mmol/L Normal 133-145 [facility] Comment on above: Order Comment: Call MD with results STAT Performed By: #### L 500.2500 ####[facility] [address] [place], [address] Urea nitrogen [Mass/Vol] 13 mg/dL Normal 4-19 [facility] Comment on above: Order Comment: Call MD with results STAT Performed By: #### L 500.2500 ####[facility] [address] [place], [address] BUN/CRE 21.2 RATIO High 10-20 [facility] Comment on above: Order Comment: Call MD with results STAT Performed By: #### L 500.2500 ####[facility] [address] [place], [address] Calcium [Mass/Vol] 8.4 mg/dL Normal 7.6-11.0 [facility] Comment on above: Order Comment: Call MD with results STAT Performed By: #### L 500.2500 ####[facility] [address] [place], [address] Chloride [Moles/Vol] 102 mmol/L Normal 98-108 [facility] Comment on above: Order Comment: Call MD with results STAT Performed By: #### L 500.2500 ####[facility] [address] [place], [address] CO2 [Moles/Vol] 7.2 mmol/L Invalid Interpretation Code 21.0-32.0 [facility] Comment on above: Order Comment: Call MD with results STAT Result Comment: Crit ical Result(s) Called at: by:??Results read back bysade.Critical Result(s) Called at:0104 by: ROSLYN ARNETTN TO DIXIECINDY??Results read back by same. Performed By: #### L 500.2500 ####[facility] [address] [place], [address] Creatinine [Mass/Vol] 1.01 mg/dL Normal 0.70-1.20 [facility] Comment on above: Order Comment: Call MD with results STAT Performed By: #### L 500.2500 ####[facility] [address] [place], [address] ECRCL 82.16 ml/min Normal 50-250 [facility] Comment on above: Order Comment: Call MD with results STAT Performed By: #### L 500.2500 ####[facility] [address] [place], [address] GAP 26 High 5-15 [facility] Comment on above: Order Comment: Call MD with results STAT Performed By: #### L 500.2500 ####[facility] [address] [place], [address] GFR/1.73 sq M.predicted among non-blacks MDRD (S/P/Bld) [Vol rate/Area] 77 mL/min/{1.73_m2} Normal >60 [facility] Comment on above: Order Comment: Call MD with results STAT Result Comment: mL/m in/1.73m2 CKD-EPI Creatinine Equation (2020) Performed By: #### L 500.2500 ####[facility] [address] [place], [address] Glucose [Mass/Vol] 330 mg/dL High 70-99 [facility] Comment on above: Order Comment: Call MD with results STAT Performed By: #### L 500.2500 ####[facility] [address] [place], [address] Potassium [Moles/Vol] 4.4 mmol/L Normal 3.3-5.1 [facility] Comment on above: Order Comment: Call MD with results STAT Result Comment: Hemo lysis present, Results??could be affected.?? Performed By: #### L 500.2500 ####[facility] [address] [place], [address] Sodium [Moles/Vol] 135 mmol/L Normal 133-145 [facility] Comment on above: Order Comment: Call MD with results STAT Performed By: #### L 500.2500 ####[facility] [address] [place], [address] Urea nitrogen [Mass/Vol] 21 mg/dL High 4-19 [facility] Comment on above: Order Comment: Call MD with results STAT Performed By: #### L 500.2500 ####[facility] [address] [place], [address] Bedside Glucoseon 01-23-2025 FINGERSTICK GLU 150 mg/dL High 74-106 [facility] Comment on above: Result Comment: EDGAR GEMENT OF PATIENT CARE PER NURSING PROTOCOL Performed By: #### L 501.080 ####[facility] [address] [place], [address] FINGERSTICK GLU 170 mg/dL High 74-106 [facility] Comment on above: Result Comment: EDGAR GEMENT OF PATIENT CARE PER NURSING PROTOCOL Performed By: #### L 501.080 ####[facility] [address] [place], [address] FINGERSTICK GLU 134 mg/dL High 74-106 [facility] Comment on above: Result Comment: EDGAR GEMENT OF PATIENT CARE PER NURSING PROTOCOL Performed By: #### L 501.080 ####[facility] [address] [place], [address] FINGERSTICK GLU 134 mg/dL High 74-106 [facility] Comment on above: Result Comment: EDGAR GEMENT OF PATIENT CARE PER NURSING PROTOCOL Performed By: #### L 501.080 ####[facility] [address] [place], [address] FINGERSTICK GLU 145 mg/dL High 74-106 [facility] Comment on above: Result Comment: EDGAR GEMENT OF PATIENT CARE PER NURSING PROTOCOL Performed By: #### L 501.080 ####[facility] [address] [place], [address] FINGERSTICK GLU 136 mg/dL High 74-106 [facility] Comment on above: Result Comment: EDGAR GEMENT OF PATIENT CARE PER NURSING PROTOCOL Performed By: #### L 501.080 ####[facility] [address] [place], [address] FINGERSTICK GLU 128 mg/dL High 74-106 [facility] Comment on above: Result Comment: EDGAR GEMENT OF PATIENT CARE PER NURSING PROTOCOL Performed By: #### L 501.080 ####[facility] [address] [place], [address] FINGERSTICK GLU 127 mg/dL High 74-106 [facility] Comment on above: Result Comment: EDGAR GEMENT OF PATIENT CARE PER NURSING PROTOCOL Performed By: #### L 501.080 ####[facility] [address] [place], [address] FINGERSTICK GLU 120 mg/dL High 74-106 [facility] Comment on above: Result Comment: EDGAR GEMENT OF PATIENT CARE PER NURSING PROTOCOL Performed By: #### L 501.080 ####[facility] [address] [place], [address] FINGERSTICK GLU 127 mg/dL High 74-106 [facility] Comment on above: Result Comment: EDGAR GEMENT OF PATIENT CARE PER NURSING PROTOCOL Performed By: #### L 501.080 ####[facility] [address] [place], [address] FINGERSTICK GLU 176 mg/dL High 74-106 [facility] Comment on above: Result Comment: EDGAR GEMENT OF PATIENT CARE PER NURSING PROTOCOL Performed By: #### L 501.080 ####[facility] [address] [place], [address] FINGERSTICK GLU 156 mg/dL High 74-106 [facility] Comment on above: Result Comment: EDGAR GEMENT OF PATIENT CARE PER NURSING PROTOCOL Performed By: #### L 501.080 ####[facility] [address] [place], [address] FINGERSTICK GLU 177 mg/dL High -106 [facility] Comment on above: Result Comment: EDGAR GEMENT OF PATIENT CARE PER NURSING PROTOCOL Performed By: #### L 501.080 ####[facility] [address] [place], [address] FINGERSTICK GLU 200 mg/dL High -[address] [place] [address] Comment on above: Result Comment: EDGAR GEMENT OF PATIENT CARE PER NURSING PROTOCOL Performed By: #### L 501.080 ####[facility] [address] [place], [address] FINGERSTICK GLU 203 mg/dL High -[address] [place] [address] Comment on above: Result Comment: EDGAR GEMENT OF PATIENT CARE PER NURSING PROTOCOL Performed By: #### L 501.080 ####[facility] [address] [place], [address] FINGERSTICK GLU 214 mg/dL High -[address] [place] [address] Comment on above: Result Comment: EDGAR GEMENT OF PATIENT CARE PER NURSING PROTOCOL Performed By: #### L 501.080 ####[facility] [address] [place], [address] FINGERSTICK GLU 217 mg/dL High 74-106 [facility] Comment on above: Result Comment: EDGAR GEMENT OF PATIENT CARE PER NURSING PROTOCOL Performed By: #### L 501.080 ####[facility] [address] [place], [address] FINGERSTICK GLU 230 mg/dL High -106 [facility] Comment on above: Result Comment: EDGAR GEMENT OF PATIENT CARE PER NURSING PROTOCOL Performed By: #### L 501.080 ####[facility] [address] [place], [address] FINGERSTICK GLU 258 mg/dL High 74-106 [facility] Comment on above: Result Comment: EDGAR GEMENT OF PATIENT CARE PER NURSING PROTOCOL Performed By: #### L 501.080 ####[facility] [address] [place], [address] FINGERSTICK GLU 269 mg/dL High 74-106 [facility] Comment on above: Result Comment: EDGAR GEMENT OF PATIENT CARE PER NURSING PROTOCOL Performed By: #### L 501.080 ####[facility] [address] [place], [address] FINGERSTICK GLU 253 mg/dL High [facility]106 [facility] Comment on above: Result Comment: EDGAR GEMENT OF PATIENT CARE PER NURSING PROTOCOL Performed By: #### L 501.080 ####[facility] [address] [place], [address] FINGERSTICK GLU 286 mg/dL High [address] [place] [address] Comment on above: Result Comment: EDGAR GEMENT OF PATIENT CARE PER NURSING PROTOCOL Performed By: #### L 501.080 ####[facility] [address] [place], [address] CBC W/Diff, Automatedon 05-2 SMEAR COMMENT SCANNED Normal [facility] Comment on above: Performed By: #### L 100.0100 ####[facility] [address] [place], [address] Basic Metabolic Profile (BMP )on 01-22-2025 BUN/CRE 21.4 RATIO High 10-20 [facility] Comment on above: Performed By: #### L 700.6800, L500.3400, L501.2450, L500.2500, L100.0100 ####[facility] [address] [place], [address] Calcium [Mass/Vol] 9.4 mg/dL Normal 7.6-11.0 [facility] Comment on above: Performed By: #### L 700.6800, L500.3400, L501.2450, L500.2500, L100.0100 ####[facility] [address] [place], [address] Chloride [Moles/Vol] 92 mmol/L Low 98-108 [facility] Comment on above: Performed By: #### L 700.6800, L500.3400, L501.2450, L500.2500, L100.0100 ####[facility] [address] [place], [address] CO2 [Moles/Vol] 6.3 mmol/L Invalid Interpretation Code 21.0-32.0 [facility] Comment on above: Result Comment: Crit ical Result(s) Called at: by:??[facility] Result(s) Called at: 2055 by: ROSLYN AYERS??Results read back by same. Performed By: #### L 700.6800, L500.3400, L501.2450, L500.2500, L100.0100 ####[facility] [address] [place], [address] Creatinine [Mass/Vol] 1.10 mg/dL Normal 0.70-1.20 [facility] Comment on above: Performed By: #### L 700.6800, L500.3400, L501.2450, L500.2500, L100.0100 ####[facility] [address] [place], [address] GAP 32 High 5-15 [facility] Comment on above: Performed By: #### L 700.6800, L500.3400, L501.2450, L500.2500, L100.0100 ####[facility] [address] [place], [address] GFR/1.73 sq M.predicted among non-blacks MDRD (S/P/Bld) [Vol rate/Area] 69 mL/min/{1.73_m2} Normal >60 [facility] Comment on above: Result Comment: mL/m in/1.73m2 CKD-EPI Creatinine Equation (2020) Performed By: #### L 700.6800, L500.3400, L501.2450, L500.2500, L100.0100 ####[facility] [address] [place], [address] Glucose [Mass/Vol] 507 mg/dL Invalid Interpretation Code 70-99 [facility] Comment on above: Result Comment: Crit ical Result(s) Called at: by:??Results read back bysame.Critical Result(s) Called at: 2055 by: ROSLYN AYERS??Results read back by same.Critical Result(s) Called at: by:??Results read back bysame. Performed By: #### L 700.6800, L500.3400, L501.2450, L500.2500, L100.0100 ####[facility] [address] [place], [address] Potassium [Moles/Vol] 4.7 mmol/L Normal 3.3-5.1 [facility] Comment on above: Performed By: #### L 700.6800, L500.3400, L501.2450, L500.2500, L100.0100 ####[facility] [address] [place], [address] Sodium [Moles/Vol] 130 mmol/L Low 133-145 [facility] Comment on above: Performed By: #### L 700.6800, L500.3400, L501.2450, L500.2500, L100.0100 ####[facility] [address] [place], [address] Urea nitrogen [Mass/Vol] 24 mg/dL High -19 [facility] Comment on above: Performed By: #### L 700.6800, L500.3400, L501.2450, L500.2500, L100.0100 ####[facility] [address] [place], [address] Bedside Glucoseon 01-22-2025 FINGERSTICK GLU 369 mg/dL High 74-106 [facility] Comment on above: Result Comment: EDGAR GEMENT OF PATIENT CARE PER NURSING PROTOCOL Performed By: #### L 501.080 ####[facility] [address] [place], [address] FINGERSTICK GLU > 500 Invalid Interpretation Code [facility]106 [facility] Comment on above: Result Comment: Insu marci GivenMANAGEMENT OF PATIENT CARE PER NURSING PROTOCOL Performed By: #### L 501.080 ####[facility] [address] [place], [address] FINGERSTICK GLU 492 mg/dL Invalid Interpretation Code [address] [place] [address] Comment on above: Result Comment: Dr Ej foreman FollowedMANAGEMENT OF PATIENT CARE PER NURSING PROTOCOL Performed By: #### L 501.080 ####[facility] [address] [place], [address] Beta-Hydroxbytyrateon 2024 BETA-HYDROXYBUT 6.8 mmol/L Normal 0.0-0.3 [facility] Comment on above: Performed By: #### L 501.6901 ####[facility] [address] [place], [address] CBC W/Diff, Automatedon - PLT EST SLT DEC Normal ADEQ [facility] Comment on above: Performed By: #### L 700.6800, L500.3400, L501.2450, L500.2500, L100.0100 ####[facility] [address] [place], [address] SMEAR COMMENT SCANNED Normal [facility] Comment on above: Performed By: #### L 700.6800, L500.3400, L501.2450, L500.2500, L100.0100 ####[facility] [address] [place], [address] Emergency Department Summary on 01-22-2025 Emergency Department Summary Normal [facility] H AND P Exam - Hospitaliston 01-22-2025 H&P Exam - Hospitalist Normal [facility] Lipaseon 01-22-2025 Lipase [Catalytic activity/Vol] 11 U/L Low 13-75 [facility] Comment on above: Result Comment: Sulma schmitz note:LIPASE revised reference range effective 22.New Lipase methodology. Expected to produce lower valuesthan the previous assay method.NEW Reference Range: 13 - 75 U/L Performed By: #### L 700.6800, L500.3400, L501.2450, L500.2500, L100.0100 ####[facility] [address] [place], [address] Liver Profileon 01-22-2025 Albumin [Mass/Vol] 4.6 g/dL Normal 3.5-5.0 [facility] Comment on above: Performed By: #### L 700.6800, L500.3400, L501.2450, L500.2500, L100.0100 ####[facility] [address] [place], [address] ALK PHOS 109 U/L High 35-104 [facility] Comment on above: Performed By: #### L 700.6800, L500.3400, L501.2450, L500.2500, L100.0100 ####[facility] [address] [place], [address] ALT [Catalytic activity/Vol] 11 U/L Normal <=34 [facility] Comment on above: Performed By: #### L 700.6800, L500.3400, L501.2450, L500.2500, L100.0100 ####[facility] [address] [place], [address] AST [Catalytic activity/Vol] 16 U/L Normal <=31 [facility] Comment on above: Performed By: #### L 700.6800, L500.3400, L501.2450, L500.2500, L100.0100 ####[facility] [address] [place], [address] Bilirubin [Mass/Vol] 0.96 mg/dL Normal 0.00-1.30 [facility] Comment on above: Performed By: #### L 700.6800, L500.3400, L501.2450, L500.2500, L100.0100 ####[facility] [address] [place], [address] Bilirubin.direct [Mass/Vol] 0.40 mg/dL High 0.00-0.30 [facility] Comment on above: Performed By: #### L 700.6800, L500.3400, L501.2450, L500.2500, L100.0100 ####[facility] [address] [place], [address] Globulin (S) [Mass/Vol] 3.3 g/dL Normal 2.2-4.2 [facility] Comment on above: Performed By: #### L 700.6800, L500.3400, L501.2450, L500.2500, L100.0100 ####[facility] [address] [place], [address] T PROT 7.9 g/dL Normal 5.9-8.4 [facility] Comment on above: Performed By: #### L 700.6800, L500.3400, L501.2450, L500.2500, L100.0100 ####[facility] [address] [place], [address] ,Serum,hCG Quali.on 01-22-2025 HCG, SERUM QUAL Negative Normal [facility] Comment on above: Performed By: #### L 700.6800, L500.3400, L501.2450, L500.2500, L100.0100 ####[facility] [address] [place], [address] Urinalysis, Completeon 01-22 WBC 0-5 SEEN Normal 0-5 [facility] Comment on above: Order Comment: CRITI CRISTINA VALUE CALLED TO [facility]01/22/252058 Nguyen Lollo.RESULTS READ BACK BY SAME.CLEAN CATCH Performed By: #### L 400.0001 ####[facility] [address] [place], [address] RBC 0-5 SEEN Normal 0-5 [facility] Comment on above: Order Comment: CRITI CRISTINA VALUE CALLED TO [facility]01/22/252058 Nguyen Lollo.RESULTS READ BACK BY SAME.CLEAN CATCH Performed By: #### L 400.0001 ####[facility] [address] [place], [address] BACTERIA 1+ /hpf Normal None Seen [facility] Comment on above: Order Comment: CRITI CRISTINA VALUE CALLED TO [facility]01/22/252058 Nguyen Lollo.RESULTS READ BACK BY SAME.CLEAN CATCH Performed By: #### L 400.0001 ####[facility] [address] [place], [address] EPI,SQUAMOUS 0-5 SEEN Normal 5-10 [facility] Comment on above: Order Comment: CRITI CRISTINA VALUE CALLED TO [facility]01/22/252058 Nguyen Lollo.RESULTS READ BACK BY SAME.CLEAN CATCH Performed By: #### L 400.0001 ####[facility] [address] [place], [address] Mucus Ql (Urine sed) 0 SEEN Normal [facility] Comment on above: Order Comment: CRITI CRISTINA VALUE CALLED TO [facility]01/22/252058 Nguyen [employer]er.RESULTS READ BACK BY SAME.CLEAN CATCH Performed By: #### L 400.0001 ####[facility] [address] [place], [address] Venous Blood Gason 5 Blood Gas Type ISABELLE Normal [facility] Comment on above: Performed By: #### L 9000.0810 ####[facility] [address] [place], [address] CO2 [Moles/Vol] 8 mmol/L Low 23-33 [facility] Comment on above: Performed By: #### L 9000.0810 ####[facility] [address] [place], [address] HCO3 (Bld) [Moles/Vol] 8 mmol/L Low 22-26 [facility] Comment on above: Performed By: #### L 9000.0810 ####[facility] [address] [place], [address] O2 Delivery Dev Not entered [facility] Comment on above: Performed By: #### L 9000.0810 ####[facility] [address] [place], [address] Read Back By Yes [facility] Comment on above: Performed By: #### L 9000.0810 ####[facility] [address] [place], [address] SITE Not entered [facility] Comment on above: Performed By: #### L 9000.0810 ####[facility] [address] [place], [address] VBG BE -21 mmol/L Low -1.0-3.5 [facility] Comment on above: Performed By: #### L 9000.0810 ####[facility] [address] [place], [address] VBG pCO2 20.8 mmHg Low 41-51 [facility] Comment on above: Performed By: #### L 9000.0810 ####[facility] [address] [place], [address] VBG pH 7.17 Invalid Interpretation Code 7.32-7.42 [facility] Comment on above: Performed By: #### L 9000.0810 ####[facility] [address] [place], [address] VBG PO2 48 mmHg High 25-40 [facility] Comment on above: Performed By: #### L 9000.0810 ####[facility] [address] [place], [address] VBG SO2 74 High 50-70 [facility] Comment on above: Performed By: #### L 9000.0810 ####[facility] [address] [place], [address] Abdomen Single Viewon 2024 Abdomen Single View Normal [facility] Gastroenterology Visit Repor ton 01-08-2025 Gastroenterology Visit Report Normal [facility] CBC W/Diff, Automatedon 04-3 Absolute Lymph 1.70 X10 3/uL Normal 0.83-4.51 [facility] Comment on above: Performed By: #### L 500.4050, L100.0100, L501.2300 ####[facility] [address] [place], [address] Absolute Neut 7.3 X10 3/uL Normal 2.0-7.7 [facility] Comment on above: Performed By: #### L 500.4050, L100.0100, L501.2300 ####[facility] [address] [place], [address] Basophils/100 WBC (Bld) 0.5 % Normal 0-1 [facility] Comment on above: Performed By: #### L 500.4050, L100.0100, L501.2300 ####[facility] [address] [place], [address] Eosinophils/100 WBC (Bld) 0.6 % Normal 0-5 [facility] Comment on above: Performed By: #### L 500.4050, L100.0100, L501.2300 ####[facility] [address] [place], [address] Erythrocyte distribution width (RBC) [Ratio] 13.1 % Normal 11.6-14.6 [facility] Comment on above: Performed By: #### L 500.4050, L100.0100, L501.2300 ####[facility] [address] [place], [address] Hematocrit (Bld) [Volume fraction] 42.8 % Normal 37-47 [facility] Comment on above: Performed By: #### L 500.4050, L100.0100, L501.2300 ####[facility] [address] [place], [address] Hemoglobin (Bld) [Mass/Vol] 14.5 g/dL Normal 12.0-15.0 [facility] Comment on above: Performed By: #### L 500.4050, L100.0100, L501.2300 ####[facility] [address] [place], [address] IG% 0.900 Normal 0.0-0.9 [facility] Comment on above: Result Comment: IG% - Immature Granulocytes (promyelocytes, myelocytes andmetamyelocytes) > 1% indicates that a LEFT SHIFT is Present. Performed By: #### L 500.4050, L100.0100, L501.2300 ####[facility] [address] [place], [address] Lymphocytes/100 WBC (Bld) 17.6 % Low 19-41 [facility] Comment on above: Performed By: #### L 500.4050, L100.0100, L501.2300 ####[facility] [address] [place], [address] MCH (RBC) [Entitic mass] 29.5 pg Normal 27.0-32.0 [facility] Comment on above: Performed By: #### L 500.4050, L100.0100, L501.2300 ####[facility] [address] [place], [address] MCHC (RBC) [Mass/Vol] 33.9 g/dL Normal 32-36 [facility] Comment on above: Performed By: #### L 500.4050, L100.0100, L501.2300 ####[facility] [address] [place], [address] MCV (RBC) [Entitic vol] 87.2 fL Normal 81-99 [facility] Comment on above: Performed By: #### L 500.4050, L100.0100, L501.2300 ####[facility] [address] [place], [address] Monocytes/100 WBC (Bld) 5.3 % Normal 0-10 [facility] Comment on above: Performed By: #### L 500.4050, L100.0100, L501.2300 ####[facility] [address] [place], [address] Neutrophils/100 WBC (Bld) 75.1 % High 47-70 [facility] Comment on above: Performed By: #### L 500.4050, L100.0100, L501.2300 ####[facility] [address] [place], [address] Nucleated RBC (Bld) [#/Vol] 0 10*3/uL Normal 0-5 [facility] Comment on above: Performed By: #### L 500.4050, L100.0100, L501.2300 ####[facility] [address] [place], [address] Platelet mean volume (Bld) [Entitic vol] 12.4 fL High 6.2-12.0 [facility] Comment on above: Performed By: #### L 500.4050, L100.0100, L501.2300 ####[facility] [address] [place], [address] Platelets (Bld) [#/Vol] 149 10*3/uL Low 150-450 [facility] Comment on above: Performed By: #### L 500.4050, L100.0100, L501.2300 ####[facility] [address] [place], [address] RBC (Bld) [#/Vol] 4.91 10*6/uL Normal 4.2-5.4 [facility] Comment on above: Performed By: #### L 500.4050, L100.0100, L501.2300 ####[facility] [address] [place], [address] RDW SD 41.7 fl Normal 35.1-43.9 [facility] Comment on above: Performed By: #### L 500.4050, L100.0100, L501.2300 ####[facility] [address] [place], [address] WBC (Bld) [#/Vol] 9.7 10*3/uL Normal 4.4-11.0 [facility] Comment on above: Performed By: #### L 500.4050, L100.0100, L501.2300 ####[facility] [address] [place], [address] Comprehensive Metabolic Prof ilon 12-25-2024 Albumin [Mass/Vol] 4.3 g/dL Normal 3.5-5.0 [facility] Comment on above: Performed By: #### L 500.4050, L100.0100, L501.2300 ####[facility] [address] [place], [address] Albumin/Globulin [Mass ratio] 1.6 {ratio} Normal 0.9-2.4 [facility] Comment on above: Performed By: #### L 500.4050, L100.0100, L501.2300 ####[facility] [address] [place], [address] ALK PHOS 78 U/L Normal 35-104 [facility] Comment on above: Performed By: #### L 500.4050, L100.0100, L501.2300 ####[facility] [address] [place], [address] ALT [Catalytic activity/Vol] 9 U/L Normal <=34 [facility] Comment on above: Performed By: #### L 500.4050, L100.0100, L501.2300 ####[facility] [address] [place], [address] AST [Catalytic activity/Vol] 14 U/L Normal <=31 [facility] Comment on above: Performed By: #### L 500.4050, L100.0100, L501.2300 ####[facility] [address] [place], [address] Bilirubin [Mass/Vol] 0.56 mg/dL Normal 0.00-1.30 [facility] Comment on above: Performed By: #### L 500.4050, L100.0100, L501.2300 ####[facility] [address] [place], [address] BUN/CRE 14.6 RATIO Normal 10-20 [facility] Comment on above: Performed By: #### L 500.4050, L100.0100, L501.2300 ####[facility] [address] [place], [address] Calcium [Mass/Vol] 9.3 mg/dL Normal 7.6-11.0 [facility] Comment on above: Performed By: #### L 500.4050, L100.0100, L501.2300 ####[facility] [address] [place], [address] Chloride [Moles/Vol] 100 mmol/L Normal 98-108 [facility] Comment on above: Performed By: #### L 500.4050, L100.0100, L501.2300 ####[facility] [address] [place], [address] CO2 [Moles/Vol] 19.3 mmol/L Low 21.0-32.0 [facility] Comment on above: Performed By: #### L 500.4050, L100.0100, L501.2300 ####[facility] [address] [place], [address] Creatinine [Mass/Vol] 0.75 mg/dL Normal 0.70-1.20 [facility] Comment on above: Performed By: #### L 500.4050, L100.0100, L501.2300 ####[facility] [address] [place], [address] GAP 13 Normal 5-15 [facility] Comment on above: Performed By: #### L 500.4050, L100.0100, L501.2300 ####[facility] [address] [place], [address] GFR/1.73 sq M.predicted among non-blacks MDRD (S/P/Bld) [Vol rate/Area] 110 mL/min/{1.73_m2} Normal >60 [facility] Comment on above: Result Comment: mL/m in/1.73m2 CKD-EPI Creatinine Equation (2020) Performed By: #### L 500.4050, L100.0100, L501.2300 ####[facility] [address] [place], [address] Globulin (S) [Mass/Vol] 2.7 g/dL Normal 2.2-4.2 [facility] Comment on above: Performed By: #### L 500.4050, L100.0100, L501.2300 ####[facility] [address] [place], [address] Glucose [Mass/Vol] 443 mg/dL High 70-99 [facility] Comment on above: Performed By: #### L 500.4050, L100.0100, L501.2300 ####[facility] [address] [place], [address] Potassium [Moles/Vol] 4.5 mmol/L Normal 3.3-5.1 [facility] Comment on above: Performed By: #### L 500.4050, L100.0100, L501.2300 ####[facility] [address] [place], [address] Sodium [Moles/Vol] 133 mmol/L Normal 133-145 [facility] Comment on above: Performed By: #### L 500.4050, L100.0100, L501.2300 ####[facility] [address] [place], [address] T PROT 7.0 g/dL Normal 5.9-8.4 [facility] Comment on above: Performed By: #### L 500.4050, L100.0100, L501.2300 ####[facility] [address] [place], [address] Urea nitrogen [Mass/Vol] 11 mg/dL Normal 4-19 [facility] Comment on above: Performed By: #### L 500.4050, L100.0100, L501.2300 ####[facility] [address] [place], [address] Phosphoruson 12-25-2024 Phosphate [Mass/Vol] 2.9 mg/dL Normal 2.7-4.5 [facility] Comment on above: Performed By: #### L 500.4050, L100.0100, L501.2300 ####[facility] [address] [place], [address] Basic Metabolic Profile (BMP )on 12-16-2024 BUN/CRE 10.1 RATIO Normal 10-20 [facility] Comment on above: Performed By: #### L 500.2500, L100.0100 ####[facility] [address] [place], [address] Calcium [Mass/Vol] 8.4 mg/dL Normal 7.6-11.0 [facility] Comment on above: Performed By: #### L 500.2500, L100.0100 ####[facility] [address] [place], [address] Chloride [Moles/Vol] 107 mmol/L Normal 98-108 [facility] Comment on above: Performed By: #### L 500.2500, L100.0100 ####[facility] [address] [place], [address] CO2 [Moles/Vol] 19.2 mmol/L Low 21.0-32.0 [facility] Comment on above: Performed By: #### L 500.2500, L100.0100 ####[facility] [address] [place], [address] Creatinine [Mass/Vol] 0.68 mg/dL Low 0.70-1.20 [facility] Comment on above: Performed By: #### L 500.2500, L100.0100 ####[facility] [address] [place], [address] ECRCL 126.42 ml/min Normal 50-250 [facility] Comment on above: Performed By: #### L 500.2500, L100.0100 ####[facility] [address] [place], [address] GAP 11 Normal 5-15 [facility] Comment on above: Performed By: #### L 500.2500, L100.0100 ####[facility] [address] [place], [address] GFR/1.73 sq M.predicted among non-blacks MDRD (S/P/Bld) [Vol rate/Area] 120 mL/min/{1.73_m2} Normal >60 [facility] Comment on above: Result Comment: mL/m in/1.73m2 CKD-EPI Creatinine Equation (2020) Performed By: #### L 500.2500, L100.0100 ####[facility] [address] [place], [address] Glucose [Mass/Vol] 203 mg/dL High 70-99 [facility] Comment on above: Performed By: #### L 500.2500, L100.0100 ####[facility] [address] [place], [address] Potassium [Moles/Vol] 4.4 mmol/L Normal 3.3-5.1 [facility] Comment on above: Result Comment: Hemo lysis present, Results??could be affected.?? Performed By: #### L 500.2500, L100.0100 ####[facility] [address] [place], [address] Sodium [Moles/Vol] 137 mmol/L Normal 133-145 [facility] Comment on above: Performed By: #### L 500.2500, L100.0100 ####[facility] [address] [place], [address] Urea nitrogen [Mass/Vol] 7 mg/dL Normal 4-19 [facility] Comment on above: Performed By: #### L 500.2500, L100.0100 ####[facility] [address] [place], [address] Bedside Glucoseon 12-16-2024 FINGERSTICK GLU 214 mg/dL High 74-106 [facility] Comment on above: Result Comment: EDGAR GEMENT OF PATIENT CARE PER NURSING PROTOCOL Performed By: #### L 501.080 ####[facility] [address] [place], [address] FINGERSTICK GLU 227 mg/dL High 74-106 [facility] Comment on above: Result Comment: EDGAR GEMENT OF PATIENT CARE PER NURSING PROTOCOL Performed By: #### L 501.080 ####[facility] [address] [place], [address] FINGERSTICK GLU 180 mg/dL High 74-106 [facility] Comment on above: Result Comment: EDGAR GEMENT OF PATIENT CARE PER NURSING PROTOCOL Performed By: #### L 501.080 ####[facility] [address] [place], [address] CBC W/Diff, Automatedon - Absolute Lymph 2.03 X10 3/uL Normal 0.83-4.51 [facility] Comment on above: Performed By: #### L 500.2500, L100.0100 ####[facility] [address] [place], [address] Absolute Neut 14.1 X10 3/uL High 2.0-7.7 [facility] Comment on above: Performed By: #### L 500.2500, L100.0100 ####[facility] [address] [place], [address] Basophils/100 WBC (Bld) 0.3 % Normal 0-1 [facility] Comment on above: Performed By: #### L 500.2500, L100.0100 ####[facility] [address] [place], [address] Eosinophils/100 WBC (Bld) 0.1 % Normal 0-5 [facility] Comment on above: Performed By: #### L 500.2500, L100.0100 ####[facility] [address] [place], [address] Erythrocyte distribution width (RBC) [Ratio] 13.3 % Normal 11.6-14.6 [facility] Comment on above: Performed By: #### L 500.2500, L100.0100 ####[facility] [address] [place], [address] Hematocrit (Bld) [Volume fraction] 36.8 % Low 37-47 [facility] Comment on above: Performed By: #### L 500.2500, L100.0100 ####[facility] [address] [place], [address] Hemoglobin (Bld) [Mass/Vol] 12.4 g/dL Normal 12.0-15.0 [facility] Comment on above: Performed By: #### L 500.2500, L100.0100 ####[facility] [address] [place], [address] IG% 0.800 Normal 0.0-0.9 [facility] Comment on above: Result Comment: IG% - Immature Granulocytes (promyelocytes, myelocytes andmetamyelocytes) > 1% indicates that a LEFT SHIFT is Present. Performed By: #### L 500.2500, L100.0100 ####[facility] [address] [place], [address] Lymphocytes/100 WBC (Bld) 11.8 % Low 19-41 [facility] Comment on above: Performed By: #### L 500.2500, L100.0100 ####[facility] [address] [place], [address] MCH (RBC) [Entitic mass] 29.5 pg Normal 27.0-32.0 [facility] Comment on above: Performed By: #### L 500.2500, L100.0100 ####[facility] [address] [place], [address] MCHC (RBC) [Mass/Vol] 33.7 g/dL Normal 32-36 [facility] Comment on above: Performed By: #### L 500.2500, L100.0100 ####[facility] [address] [place], [address] MCV (RBC) [Entitic vol] 87.4 fL Normal 81-99 [facility] Comment on above: Performed By: #### L 500.2500, L100.0100 ####[facility] [address] [place], [address] Monocytes/100 WBC (Bld) 5.0 % Normal 0-10 [facility] Comment on above: Performed By: #### L 500.2500, L100.0100 ####[facility] [address] [place], [address] Neutrophils/100 WBC (Bld) 82.0 % High 47-70 [facility] Comment on above: Performed By: #### L 500.2500, L100.0100 ####[facility] [address] [place], [address] Nucleated RBC (Bld) [#/Vol] 0 10*3/uL Normal 0-5 [facility] Comment on above: Performed By: #### L 500.2500, L100.0100 ####[facility] [address] [place], [address] Platelet mean volume (Bld) [Entitic vol] 12.4 fL High 6.2-12.0 [facility] Comment on above: Performed By: #### L 500.2500, L100.0100 ####[facility] [address] [place], [address] Platelets (Bld) [#/Vol] 165 10*3/uL Normal 150-450 [facility] Comment on above: Performed By: #### L 500.2500, L100.0100 ####[facility] [address] [place], [address] RBC (Bld) [#/Vol] 4.21 10*6/uL Normal 4.2-5.4 [facility] Comment on above: Performed By: #### L 500.2500, L100.0100 ####[facility] [address] [place], [address] RDW SD 42.4 fl Normal 35.1-43.9 [facility] Comment on above: Performed By: #### L 500.2500, L100.0100 ####[facility] [address] [place], [address] WBC (Bld) [#/Vol] 17.1 10*3/uL High 4.4-11.0 [facility] Comment on above: Performed By: #### L 500.2500, L100.0100 ####[facility] [address] [place], [address] Discharge Instructionon 11-27 Discharge Instruction Normal [facility] Basic Metabolic Profile (BMP )on 12-15-2024 BUN/CRE 19.3 RATIO Normal 10-20 [facility] Comment on above: Performed By: #### L 100.0500, L500.2500 ####[facility] [address] [place], [address] Calcium [Mass/Vol] 7.9 mg/dL Normal 7.6-11.0 [facility] Comment on above: Performed By: #### L 100.0500, L500.2500 ####[facility] [address] [place], [address] Chloride [Moles/Vol] 106 mmol/L Normal 98-108 [facility] Comment on above: Performed By: #### L 100.0500, L500.2500 ####[facility] [address] [place], [address] CO2 [Moles/Vol] 14.3 mmol/L Low 21.0-32.0 [facility] Comment on above: Performed By: #### L 100.0500, L500.2500 ####[facility] [address] [place], [address] Creatinine [Mass/Vol] 0.56 mg/dL Low 0.70-1.20 [facility] Comment on above: Performed By: #### L 100.0500, L500.2500 ####[facility] [address] [place], [address] ECRCL 153.51 ml/min Normal 50-250 [facility] Comment on above: Performed By: #### L 100.0500, L500.2500 ####[facility] [address] [place], [address] GAP 17 High 5-15 [facility] Comment on above: Performed By: #### L 100.0500, L500.2500 ####[facility] [address] [place], [address] GFR/1.73 sq M.predicted among non-blacks MDRD (S/P/Bld) [Vol rate/Area] 126 mL/min/{1.73_m2} Normal >60 [facility] Comment on above: Result Comment: mL/m in/1.73m2 CKD-EPI Creatinine Equation (2020) Performed By: #### L 100.0500, L500.2500 ####[facility] [address] [place], [address] Glucose [Mass/Vol] 40 mg/dL Invalid Interpretation Code 70-99 [facility] Comment on above: Result Comment: Crit ical Result(s) Called at: 0709 by:??ROSLYN MACK Results read back by same. Performed By: #### L 100.0500, L500.2500 ####[facility] [address] [place], [address] Potassium [Moles/Vol] 3.1 mmol/L Low 3.3-5.1 [facility] Comment on above: Performed By: #### L 100.0500, L500.2500 ####[facility] [address] [place], [address] Sodium [Moles/Vol] 138 mmol/L Normal 133-145 [facility] Comment on above: Performed By: #### L 100.0500, L500.2500 ####[facility] [address] [place], [address] Urea nitrogen [Mass/Vol] 11 mg/dL Normal 4-19 [facility] Comment on above: Performed By: #### L 100.0500, L500.2500 ####[facility] [address] [place], [address] Bedside Glucoseon 12-15-2024 FINGERSTICK GLU 260 mg/dL High 74-106 [facility] Comment on above: Result Comment: EDGAR HUNG OF PATIENT CARE PER NURSING PROTOCOL Performed By: #### L 501.080 ####[facility] [address] [place], [address] FINGERSTICK GLU 307 mg/dL High 74-106 [facility] Comment on above: Result Comment: EDGAR GEMENT OF PATIENT CARE PER NURSING PROTOCOL Performed By: #### L 501.080 ####[facility] [address] [place], [address] FINGERSTICK GLU 204 mg/dL High 74-106 [facility] Comment on above: Result Comment: EDGAR GEMENT OF PATIENT CARE PER NURSING PROTOCOL Performed By: #### L 501.080 ####[facility] [address] [place], [address] FINGERSTICK GLU 77 mg/dL Normal 74-106 [facility] Comment on above: Result Comment: EDGAR GEMENT OF PATIENT CARE PER NURSING PROTOCOL Performed By: #### L 501.080 ####[facility] [address] [place], [address] FINGERSTICK GLU 34 mg/dL Invalid Interpretation Code 74-106 [facility] Comment on above: Result Comment: DEGAR GEMENT OF PATIENT CARE PER NURSING PROTOCOL Performed By: #### L 501.080 ####[facility] [address] [place], [address] FINGERSTICK GLU 109 mg/dL High 74-106 [facility] Comment on above: Result Comment: EDGAR GEMENT OF PATIENT CARE PER NURSING PROTOCOL Performed By: #### L 501.080 ####[facility] [address] [place], [address] CBC-Complete Blood Cnt No Di ffon 12-15-2024 Erythrocyte distribution width (RBC) [Ratio] 13.1 % Normal 11.6-14.6 [facility] Comment on above: Performed By: #### L 100.0500, L500.2500 ####[facility] [address] [place], [address] Hematocrit (Bld) [Volume fraction] 36.0 % Low 37-47 [facility] Comment on above: Performed By: #### L 100.0500, L500.2500 ####[facility] [address] [place], [address] Hemoglobin (Bld) [Mass/Vol] 12.2 g/dL Normal 12.0-15.0 [facility] Comment on above: Performed By: #### L 100.0500, L500.2500 ####[facility] [address] [place], [address] MCH (RBC) [Entitic mass] 30.1 pg Normal 27.0-32.0 [facility] Comment on above: Performed By: #### L 100.0500, L500.2500 ####[facility] [address] [place], [address] MCHC (RBC) [Mass/Vol] 33.9 g/dL Normal 32-36 [facility] Comment on above: Performed By: #### L 100.0500, L500.2500 ####[facility] [address] [place], [address] MCV (RBC) [Entitic vol] 88.9 fL Normal 81-99 [facility] Comment on above: Performed By: #### L 100.0500, L500.2500 ####[facility] [address] [place], [address] Platelet mean volume (Bld) [Entitic vol] 12.9 fL High 6.2-12.0 [facility] Comment on above: Performed By: #### L 100.0500, L500.2500 ####[facility] [address] [place], [address] Platelets (Bld) [#/Vol] 145 10*3/uL Low 150-450 [facility] Comment on above: Performed By: #### L 100.0500, L500.2500 ####[facility] [address] [place], [address] RBC (Bld) [#/Vol] 4.05 10*6/uL Low 4.2-5.4 [facility] Comment on above: Performed By: #### L 100.0500, L500.2500 ####[facility] [address] [place], [address] RDW SD 42.8 fl Normal 35.1-43.9 [facility] Comment on above: Performed By: #### L 100.0500, L500.2500 ####[facility] [address] [place], [address] WBC (Bld) [#/Vol] 16.4 10*3/uL High 4.4-11.0 [facility] Comment on above: Performed By: #### L 100.0500, L500.2500 ####[facility] [address] [place], [address] Basic Metabolic Profile (BMP )on 12-14-2024 BUN/CRE 17.1 RATIO Normal 10-20 [facility] Comment on above: Performed By: #### L 500.2500 ####[facility] [address] [place], [address] Calcium [Mass/Vol] 7.7 mg/dL Normal 7.6-11.0 [facility] Comment on above: Performed By: #### L 500.2500 ####[facility] [address] [place], [address] Chloride [Moles/Vol] 108 mmol/L Normal 98-108 [facility] Comment on above: Performed By: #### L 500.2500 ####[facility] [address] [place], [address] CO2 [Moles/Vol] 15.3 mmol/L Low 21.0-32.0 [facility] Comment on above: Performed By: #### L 500.2500 ####[facility] [address] [place], [address] Creatinine [Mass/Vol] 0.67 mg/dL Low 0.70-1.20 [facility] Comment on above: Performed By: #### L 500.2500 ####[facility] [address] [place], [address] ECRCL 138.78 ml/min Normal 50-250 [facility] Comment on above: Performed By: #### L 500.2500 ####[facility] [address] [place], [address] GAP 15 Normal 5-15 [facility] Comment on above: Performed By: #### L 500.2500 ####[facility] [address] [place], [address] GFR/1.73 sq M.predicted among non-blacks MDRD (S/P/Bld) [Vol rate/Area] 121 mL/min/{1.73_m2} Normal >60 [facility] Comment on above: Result Comment: mL/m in/1.73m2 CKD-EPI Creatinine Equation (2020) Performed By: #### L 500.2500 ####[facility] [address] [place], [address] Glucose [Mass/Vol] 180 mg/dL High 70-99 [facility] Comment on above: Performed By: #### L 500.2500 ####[facility] [address] [place], [address] Potassium [Moles/Vol] 3.3 mmol/L Normal 3.3-5.1 [facility] Comment on above: Performed By: #### L 500.2500 ####[facility] [address] [place], [address] Sodium [Moles/Vol] 138 mmol/L Normal 133-145 [facility] Comment on above: Performed By: #### L 500.2500 ####[facility] [address] [place], [address] Urea nitrogen [Mass/Vol] 11 mg/dL Normal 4-19 [facility] Comment on above: Performed By: #### L 500.2500 ####[facility] [address] [place], [address] Bedside Glucoseon 12-14-2024 FINGERSTICK GLU 186 mg/dL High 74-106 [facility] Comment on above: Result Comment: EDGAR GEMENT OF PATIENT CARE PER NURSING PROTOCOL Performed By: #### L 501.080 ####[facility] [address] [place], [address] FINGERSTICK GLU 291 mg/dL High 74-106 [facility] Comment on above: Result Comment: EDGAR GEMENT OF PATIENT CARE PER NURSING PROTOCOL Performed By: #### L 501.080 ####[facility] [address] [place], [address] FINGERSTICK GLU 352 mg/dL High 74-106 [facility] Comment on above: Result Comment: EDGAR GEMENT OF PATIENT CARE PER NURSING PROTOCOL Performed By: #### L 501.080 ####[facility] [address] [place], [address] Beta-Hydroxbytyrateon 2024 BETA-HYDROXYBUT 1.9 mmol/L Normal 0.0-0.3 [facility] Comment on above: Performed By: #### L 501.6901, L500.4050, L501.2450, L700.6800 ####[facility] [address] [place], [address] CBC W/Diff, Automatedon 11-26 Absolute Lymph 2.40 X10 3/uL Normal 0.83-4.51 [facility] Comment on above: Performed By: #### L 100.0100 ####[facility] [address] [place], [address] Absolute Neut 12.5 X10 3/uL High 2.0-7.7 [facility] Comment on above: Performed By: #### L 100.0100 ####[facility] [address] [place], [address] Basophils/100 WBC (Bld) 0.4 % Normal 0-1 [facility] Comment on above: Performed By: #### L 100.0100 ####[facility] [address] [place], [address] Eosinophils/100 WBC (Bld) 0.1 % Normal 0-5 [facility] Comment on above: Performed By: #### L 100.0100 ####[facility] [address] [place], [address] Erythrocyte distribution width (RBC) [Ratio] 12.9 % Normal 11.6-14.6 [facility] Comment on above: Performed By: #### L 100.0100 ####[facility] [address] [place], [address] Hematocrit (Bld) [Volume fraction] 39.9 % Normal 37-47 [facility] Comment on above: Performed By: #### L 100.0100 ####[facility] [address] [place], [address] Hemoglobin (Bld) [Mass/Vol] 13.7 g/dL Normal 12.0-15.0 [facility] Comment on above: Performed By: #### L 100.0100 ####[facility] [address] [place], [address] IG% 0.800 Normal 0.0-0.9 [facility] Comment on above: Result Comment: IG% - Immature Granulocytes (promyelocytes, myelocytes andmetamyelocytes) > 1% indicates that a LEFT SHIFT is Present. Performed By: #### L 100.0100 ####[facility] [address] [place], [address] Lymphocytes/100 WBC (Bld) 15.1 % Low 19-41 [facility] Comment on above: Performed By: #### L 100.0100 ####[facility] [address] [place], [address] MCH (RBC) [Entitic mass] 29.7 pg Normal 27.0-32.0 [facility] Comment on above: Performed By: #### L 100.0100 ####[facility] [address] [place], [address] MCHC (RBC) [Mass/Vol] 34.3 g/dL Normal 32-36 [facility] Comment on above: Performed By: #### L 100.0100 ####[facility] [address] [place], [address] MCV (RBC) [Entitic vol] 86.4 fL Normal 81-99 [facility] Comment on above: Performed By: #### L 100.0100 ####[facility] [address] [place], [address] Monocytes/100 WBC (Bld) 4.9 % Normal 0-10 [facility] Comment on above: Performed By: #### L 100.0100 ####[facility] [address] [place], [address] Neutrophils/100 WBC (Bld) 78.7 % High 47-70 [facility] Comment on above: Performed By: #### L 100.0100 ####[facility] [address] [place], [address] Nucleated RBC (Bld) [#/Vol] 0 10*3/uL Normal 0-5 [facility] Comment on above: Performed By: #### L 100.0100 ####[facility] [address] [place], [address] Platelet mean volume (Bld) [Entitic vol] 12.6 fL High 6.2-12.0 [facility] Comment on above: Performed By: #### L 100.0100 ####[facility] [address] [place], [address] Platelets (Bld) [#/Vol] 159 10*3/uL Normal 150-450 [facility] Comment on above: Performed By: #### L 100.0100 ####[facility] [address] [place], [address] RBC (Bld) [#/Vol] 4.62 10*6/uL Normal 4.2-5.4 [facility] Comment on above: Performed By: #### L 100.0100 ####[facility] [address] [place], [address] RDW SD 40.1 fl Normal 35.1-43.9 [facility] Comment on above: Performed By: #### L 100.0100 ####[facility] [address] [place], [address] WBC (Bld) [#/Vol] 15.9 10*3/uL High 4.4-11.0 [facility] Comment on above: Performed By: #### L 100.0100 ####[facility] [address] [place], [address] Comprehensive Metabolic Prof [facility] 12-14-2024 Albumin [Mass/Vol] 4.2 g/dL Normal 3.5-5.0 [facility] Comment on above: Performed By: #### L 501.6901, L500.4050, L501.2450, L700.6800 ####[facility] [address] [place], [address] Albumin/Globulin [Mass ratio] 1.8 {ratio} Normal 0.9-2.4 [facility] Comment on above: Performed By: #### L 501.6901, L500.4050, L501.2450, L700.6800 ####[facility] [address] [place], [address] ALK PHOS 76 U/L Normal 35-104 [facility] Comment on above: Performed By: #### L 501.6901, L500.4050, L501.2450, L700.6800 ####[facility] [address] [place], [address] ALT [Catalytic activity/Vol] 11 U/L Normal <=34 [facility] Comment on above: Performed By: #### L 501.6901, L500.4050, L501.2450, L700.6800 ####[facility] [address] [place], [address] AST [Catalytic activity/Vol] 16 U/L Normal <=31 [facility] Comment on above: Performed By: #### L 501.6901, L500.4050, L501.2450, L700.6800 ####[facility] [address] [place], [address] Bilirubin [Mass/Vol] 0.92 mg/dL Normal 0.00-1.30 [facility] Comment on above: Performed By: #### L 501.6901, L500.4050, L501.2450, L700.6800 ####[facility] [address] [place], [address] BUN/CRE 18.2 RATIO Normal 10-20 [facility] Comment on above: Performed By: #### L 501.6901, L500.4050, L501.2450, L700.6800 ####[facility] [address] [place], [address] Calcium [Mass/Vol] 8.2 mg/dL Normal 7.6-11.0 [facility] Comment on above: Performed By: #### L 501.6901, L500.4050, L501.2450, L700.6800 ####[facility] [address] [place], [address] Chloride [Moles/Vol] 104 mmol/L Normal 98-108 [facility] Comment on above: Performed By: #### L 501.6901, L500.4050, L501.2450, L700.6800 ####[facility] [address] [place], [address] CO2 [Moles/Vol] 15.1 mmol/L Low 21.0-32.0 [facility] Comment on above: Performed By: #### L 501.6901, L500.4050, L501.2450, L700.6800 ####[facility] [address] [place], [address] Creatinine [Mass/Vol] 0.74 mg/dL Normal 0.70-1.20 [facility] Comment on above: Performed By: #### L 501.6901, L500.4050, L501.2450, L700.6800 ####[facility] [address] [place], [address] ECRCL 125.65 ml/min Normal 50-250 [facility] Comment on above: Performed By: #### L 501.6901, L500.4050, L501.2450, L700.6800 ####[facility] [address] [place], [address] GAP 17 High 5-15 [facility] Comment on above: Performed By: #### L 501.6901, L500.4050, L501.2450, L700.6800 ####[facility] [address] [place], [address] GFR/1.73 sq M.predicted among non-blacks MDRD (S/P/Bld) [Vol rate/Area] 112 mL/min/{1.73_m2} Normal >60 [facility] Comment on above: Result Comment: mL/m in/1.73m2 CKD-EPI Creatinine Equation (2020) Performed By: #### L 501.6901, L500.4050, L501.2450, L700.6800 ####[facility] [address] [place], [address] Globulin (S) [Mass/Vol] 2.4 g/dL Normal 2.2-4.2 [facility] Comment on above: Performed By: #### L 501.6901, L500.4050, L501.2450, L700.6800 ####[facility] [address] [place], [address] Glucose [Mass/Vol] 329 mg/dL High 70-99 [facility] Comment on above: Performed By: #### L 501.6901, L500.4050, L501.2450, L700.6800 ####[facility] [address] [place], [address] Potassium [Moles/Vol] 3.6 mmol/L Normal 3.3-5.1 [facility] Comment on above: Performed By: #### L 501.6901, L500.4050, L501.2450, L700.6800 ####[facility] [address] [place], [address] Sodium [Moles/Vol] 136 mmol/L Normal 133-145 [facility] Comment on above: Performed By: #### L 501.6901, L500.4050, L501.2450, L700.6800 ####[facility] [address] [place], [address] T PROT 6.5 g/dL Normal 5.9-8.4 [facility] Comment on above: Performed By: #### L 501.6901, L500.4050, L501.2450, L700.6800 ####[facility] [address] [place], [address] Urea nitrogen [Mass/Vol] 13 mg/dL Normal 4-19 [facility] Comment on above: Performed By: #### L 501.6901, L500.4050, L501.2450, L700.6800 ####[facility] [address] [place], [address] Emergency Department Summary on 12-14-2024 Emergency Department Summary Normal [facility] H AND P Exam - Hospitaliston 12-14-2024 H&P Exam - Hospitalist Normal [facility] Lipaseon 12-14-2024 Lipase [Catalytic activity/Vol] 13 U/L Normal 13-75 [facility] Comment on above: Result Comment: Sulma schmitz note:LIPASE revised reference range effective 22.New Lipase methodology. Expected to produce lower valuesthan the previous assay method.NEW Reference Range: 13 - 75 U/L Performed By: #### L 501.6901, L500.4050, L501.2450, L700.6800 ####[facility] [address] [place], [address] Magnesiumon 12-14-2024 Magnesium [Mass/Vol] 1.5 mg/dL Normal 1.5-2.2 [facility] Comment on above: Performed By: #### L 501.2300, L501.5200 ####[facility] [address] [place], [address] Phosphoruson 12-14-2024 Phosphate [Mass/Vol] 1.4 mg/dL Invalid Interpretation Code 2.7-4.5 [facility] Comment on above: Performed By: #### L 501.2300, L501.5200 ####[facility] [address] [place], [address] ,Serum,hCG Quali.on 12-14-2024 HCG, SERUM QUAL Negative Normal [facility] Comment on above: Performed By: #### L 501.6901, L500.4050, L501.2450, L700.6800 ####[facility] [address] [place], [address] Urinalysis, Completeon 12-14 EPI,SQUAMOUS 0-5 SEEN Normal 5-10 [facility] Comment on above: Order Comment: CLEAN CATCH Performed By: #### L 400.0001 ####[facility] [address] [place], [address] BACTERIA 0 SEEN Normal None Seen [facility] Comment on above: Order Comment: CLEAN CATCH Performed By: #### L 400.0001 ####[facility] [address] [place], [address] Mucus Ql (Urine sed) 0 SEEN Normal [facility] Comment on above: Order Comment: CLEAN CATCH Performed By: #### L 400.0001 ####[facility] [address] [place], [address] RBC 0 SEEN Normal 0-5 [facility] Comment on above: Order Comment: CLEAN CATCH Performed By: #### L 400.0001 ####[facility] [address] [place], [address] WBC 0 SEEN Normal 0-5 [facility] Comment on above: Order Comment: CLEAN CATCH Performed By: #### L 400.0001 ####[facility] [address] [place], [address] Venous Blood Gason 5 Blood Gas Type ISABELLE Normal [facility] Comment on above: Performed By: #### L 9000.0810 ####[facility] [address] [place], [address] CO2 [Moles/Vol] 16 mmol/L Low 23-33 [facility] Comment on above: Performed By: #### L 9000.0810 ####[facility] [address] [place], [address] HCO3 (Bld) [Moles/Vol] 15 mmol/L Low 22-26 [facility] Comment on above: Performed By: #### L 9000.0810 ####[facility] [address] [place], [address] O2 Delivery Dev Room Air Normal [facility] Comment on above: Performed By: #### L 9000.0810 ####[facility] [address] [place], [address] SITE Not entered Normal [facility] Comment on above: Performed By: #### L 9000.0810 ####[facility] [address] [place], [address] VBG BE -9 mmol/L Low -1.0-3.5 [facility] Comment on above: Performed By: #### L 9000.0810 ####[facility] [address] [place], [address] VBG pCO2 21.7 mmHg Low 41-51 [facility] Comment on above: Performed By: #### L 9000.0810 ####[facility] [address] [place], [address] VBG pH 7.45 High 7.32-7.42 [facility] Comment on above: Performed By: #### L 9000.0810 ####[facility] [address] [place], [address] VBG PO2 43 mmHg High 25-40 [facility] Comment on above: Performed By: #### L 9000.0810 ####[facility] [address] [place], [address] VBG SO2 83 High 50-70 [facility] Comment on above: Performed By: #### L 9000.0810 ####[facility] [address] [place], [address] CBC W/Diff, Automatedon 04-0 PLT EST ADEQUATE Normal ADEQ [facility] Comment on above: Performed By: #### L 501.9520, L100.0100, L501.9985, L506.1001, L500.4050, L509.6001, L503.6030 ####[facility] [address] [place], [address] Comprehensive Metabolic Prof ilon 11-28-2024 Albumin [Mass/Vol] 4.1 g/dL Normal 3.5-5.0 [facility] Comment on above: Performed By: #### L 501.9520, L100.0100, L501.9985, L506.1001, L500.4050, L509.6001, L503.6030 ####[facility] [address] [place], [address] Albumin/Globulin [Mass ratio] 1.8 {ratio} Normal 0.9-2.4 [facility] Comment on above: Performed By: #### L 501.9520, L100.0100, L501.9985, L506.1001, L500.4050, L509.6001, L503.6030 ####[facility] [address] [place], [address] ALK PHOS 68 U/L Normal 35-104 [facility] Comment on above: Performed By: #### L 501.9520, L100.0100, L501.9985, L506.1001, L500.4050, L509.6001, L503.6030 ####[facility] [address] [place], [address] ALT [Catalytic activity/Vol] 6 U/L Normal <=34 [facility] Comment on above: Performed By: #### L 501.9520, L100.0100, L501.9985, L506.1001, L500.4050, L509.6001, L503.6030 ####[facility] [address] [place], [address] AST [Catalytic activity/Vol] 16 U/L Normal <=31 [facility] Comment on above: Performed By: #### L 501.9520, L100.0100, L501.9985, L506.1001, L500.4050, L509.6001, L503.6030 ####[facility] [address] [place], [address] Bilirubin [Mass/Vol] 0.29 mg/dL Normal 0.00-1.30 [facility] Comment on above: Performed By: #### L 501.9520, L100.0100, L501.9985, L506.1001, L500.4050, L509.6001, L503.6030 ####[facility] [address] [place], [address] BUN/CRE 19.9 RATIO Normal 10-20 [facility] Comment on above: Performed By: #### L 501.9520, L100.0100, L501.9985, L506.1001, L500.4050, L509.6001, L503.6030 ####[facility] [address] [place], [address] Calcium [Mass/Vol] 9.1 mg/dL Normal 7.6-11.0 [facility] Comment on above: Performed By: #### L 501.9520, L100.0100, L501.9985, L506.1001, L500.4050, L509.6001, L503.6030 ####[facility] [address] [place], [address] Chloride [Moles/Vol] 107 mmol/L Normal 98-108 [facility] Comment on above: Performed By: #### L 501.9520, L100.0100, L501.9985, L506.1001, L500.4050, L509.6001, L503.6030 ####[facility] [address] [place], [address] CO2 [Moles/Vol] 20.4 mmol/L Low 21.0-32.0 [facility] Comment on above: Performed By: #### L 501.9520, L100.0100, L501.9985, L506.1001, L500.4050, L509.6001, L503.6030 ####[facility] [address] [place], [address] Creatinine [Mass/Vol] 0.59 mg/dL Low 0.70-1.20 [facility] Comment on above: Performed By: #### L 501.9520, L100.0100, L501.9985, L506.1001, L500.4050, L509.6001, L503.6030 ####[facility] [address] [place], [address] GAP 11 Normal 5-15 [facility] Comment on above: Performed By: #### L 501.9520, L100.0100, L501.9985, L506.1001, L500.4050, L509.6001, L503.6030 ####[facility] [address] [place], [address] GFR/1.73 sq M.predicted among non-blacks MDRD (S/P/Bld) [Vol rate/Area] 124 mL/min/{1.73_m2} Normal >60 [facility] Comment on above: Result Comment: mL/m in/1.73m2 CKD-EPI Creatinine Equation (2020) Performed By: #### L 501.9520, L100.0100, L501.9985, L506.1001, L500.4050, L509.6001, L503.6030 ####[facility] [address] [place], [address] Globulin (S) [Mass/Vol] 2.3 g/dL Normal 2.2-4.2 [facility] Comment on above: Performed By: #### L 501.9520, L100.0100, L501.9985, L506.1001, L500.4050, L509.6001, L503.6030 ####[facility] [address] [place], [address] Glucose [Mass/Vol] 222 mg/dL High 70-99 [facility] Comment on above: Performed By: #### L 501.9520, L100.0100, L501.9985, L506.1001, L500.4050, L509.6001, L503.6030 ####[facility] [address] [place], [address] Potassium [Moles/Vol] 4.2 mmol/L Normal 3.3-5.1 [facility] Comment on above: Performed By: #### L 501.9520, L100.0100, L501.9985, L506.1001, L500.4050, L509.6001, L503.6030 ####[facility] [address] [place], [address] Sodium [Moles/Vol] 138 mmol/L Normal 133-145 [facility] Comment on above: Performed By: #### L 501.9520, L100.0100, L501.9985, L506.1001, L500.4050, L509.6001, L503.6030 ####[facility] [address] [place], [address] T PROT 6.4 g/dL Normal 5.9-8.4 [facility] Comment on above: Performed By: #### L 501.9520, L100.0100, L501.9985, L506.1001, L500.4050, L509.6001, L503.6030 ####[facility] [address] [place], [address] Urea nitrogen [Mass/Vol] 12 mg/dL Normal 4-19 [facility] Comment on above: Performed By: #### L 501.9520, L100.0100, L501.9985, L506.1001, L500.4050, L509.6001, L503.6030 ####[facility] [address] [place], [address] Hemoglobin A1con 11-28-2024 HbA1c (Bld) [Mass fraction] 10.1 % Normal <=5.6 [facility] Comment on above: Performed By: #### L 501.9520, L100.0100, L501.9985, L506.1001, L500.4050, L509.6001, L503.6030 ####[facility] [address] [place], [address] Iron+Iron Binding Capacityon 11-28-2024 Iron [Mass/Vol] 71 ug/dL Normal 50-170 [facility] Comment on above: Performed By: #### L 501.9520, L100.0100, L501.9985, L506.1001, L500.4050, L509.6001, L503.6030 ####[facility] [address] [place], [address] IRON SATURATION 28.0 Normal 13-59 [facility] Comment on above: Performed By: #### L 501.9520, L100.0100, L501.9985, L506.1001, L500.4050, L509.6001, L503.6030 ####[facility] [address] [place], [address] TIBC 248 ug/dL Low 250-450 [facility] Comment on above: Performed By: #### L 501.9520, L100.0100, L501.9985, L506.1001, L500.4050, L509.6001, L503.6030 ####[facility] [address] [place], [address] UIBC 177 ug/dL Low 228-428 [facility] Comment on above: Performed By: #### L 501.9520, L100.0100, L501.9985, L506.1001, L500.4050, L509.6001, L503.6030 ####[facility] [address] [place], [address] L509.6001on 11-28-2024 CORTISOL 5.66 ug/dL Low 6.02-18.40 [facility] Comment on above: Performed By: #### L 501.9520, L100.0100, L501.9985, L506.1001, L500.4050, L509.6001, L503.6030 ####[facility] [address] [place], [address] Thyroid Stim Hormone (TSH)on 11-28-2024 TSH 0.451 uIU/mL Normal 0.300-4.200 [facility] Comment on above: Performed By: #### L 501.9520, L100.0100, L501.9985, L506.1001, L500.4050, L509.6001, L503.6030 ####[facility] [address] [place], [address] Vitamin D,25 Hydroxyon 11-28 Vitamin D 25-OH 15.7 ng/mL Low 30-100 [facility] Comment on above: Result Comment: Shira min D StatusDeficiency: <20 ng/mL (50nmol/L)Insufficiency: 20-30 ng/mL (50-75 nmol/L)Sufficiency: 30-100 ng/mL (75-250 nmol/L)Toxicity: >100 ng/mL (>250 nmol/L) Performed By: #### L 501.9520, L100.0100, L501.9985, L506.1001, L500.4050, L509.6001, L503.6030 ####[facility] [address] [place], [address] CNCOon 11-13-2024 CNCO Letter Text Normal [facility] CNOVon 11-11-2024 CNOV Office Visit ([facility] ) KATHLEEN VILLA ([id number]) 1995 F CHT Date Time Provider Department [...] every 24 hours. 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 Normal [facility]ak [facility]11-20[facility] DAISYKATHLEEN Swain ([id number]) 1995 F CHT Date Time Provider Department 11/11/24 LETICIA HYLTON [facility] During your visit today, we [...] Units subcutaneously every 24 hours. - Insulin [place], Disposable, (PEN NEEDLE) 32 gauge x Inject [...] (post-traumatic stress disorder) [F43.10] 12/25/2012 DVT prophylaxis [[id number]] 12/25/2012 09/04/2013 DISPOSITION AND FOLLOW-UP [V999.01] 12/25/2012 09/04/2013 HTN (hypertension) [I10] Hypertension in , antepartum [O16.9] 09/19/2013 01/08/2014 GBS (group B Streptococcus carrier), +RV cultur*11/11/2013 04/16/2014 [Z34.90] 11/22/2013 04/16/2014 Diabetes mellitus in (HCC) [O24.919] 12/25/2013 04/16/2014 Diabetic ketoacidosis without coma associated w*01/08/2014 02/04/2023 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] 01/08/2014 DVT prophylaxis [[id number]] 02/25/2014 04/16/2014 care and examination [Z39.2] 02/25/2014 [...] 1 d (more content not included)... Normal [facility] XR ABDOMEN 1V SUPINEon 11-11 XR ABDOMEN [...] Nov 11 2024 11:13AM EST [id number] Normal [facility] XR Abdomen Supine and Uprigh ton 11-11-2024 IMPRESSION: Moderate-large colonic stool burden. No dilated bowel. Transcribed Using Voice Recognition Transcribe Date/Time: Nov 11 2024 11:10A Dictated by: TRES EVANS DO This examination was interpreted and the report reviewed and electronically signed by: TRES EVANS DO on Nov 11 2024 11:13AM EST [facility] * * *Final Report* * [...] right lower abdomen/pelvis. No acute bony abnormality. [facility] Provider, [facility] Prabha [place] - 11/11/2024 * * *Final Report* * [...] DO on Nov 11 2024 11:13AM EST [facility] Radiology Study observation (narrative) [facility] XR Abdomen Supine and Uprigh tOrdered By: [facility] Provider on 11-11-2024 [facility] Basic Metabolic Profile (BMP )on 11-06-2024 BUN/CRE 16.8 RATIO Normal 10-20 [facility] Comment on above: Performed By: #### L 500.2500 ####[facility] [address] [place], [address] Calcium [Mass/Vol] 8.0 mg/dL Normal 7.6-11.0 [facility] Comment on above: Performed By: #### L 500.2500 ####[facility] [address] [place], [address] Chloride [Moles/Vol] 104 mmol/L Normal 98-108 [facility] Comment on above: Performed By: #### L 500.2500 ####[facility] [address] [place], [address] CO2 [Moles/Vol] 21.1 mmol/L Normal 21.0-32.0 [facility] Comment on above: Performed By: #### L 500.2500 ####[facility] [address] [place], [address] Creatinine [Mass/Vol] 0.64 mg/dL Low 0.70-1.20 [facility] Comment on above: Performed By: #### L 500.2500 ####[facility] [address] [place], [address] ECRCL 134.33 ml/min Normal 50-250 [facility] Comment on above: Performed By: #### L 500.2500 ####[facility] [address] [place], [address] GAP 12 Normal 5-15 [facility] Comment on above: Performed By: #### L 500.2500 ####[facility] [address] [place], [address] GFR/1.73 sq M.predicted among non-blacks MDRD (S/P/Bld) [Vol rate/Area] 122 mL/min/{1.73_m2} Normal >60 [facility] Comment on above: Result Comment: mL/m in/1.73m2 CKD-EPI Creatinine Equation (2020) Performed By: #### L 500.2500 ####[facility] [address] [place], [address] Glucose [Mass/Vol] 64 mg/dL Low 70-99 [facility] Comment on above: Performed By: #### L 500.2500 ####[facility] [address] [place], [address] Potassium [Moles/Vol] 3.3 mmol/L Normal 3.3-5.1 [facility] Comment on above: Performed By: #### L 500.2500 ####[facility] [address] [place], [address] Sodium [Moles/Vol] 137 mmol/L Normal 133-145 [facility] Comment on above: Performed By: #### L 500.2500 ####[facility] [address] [place], [address] Urea nitrogen [Mass/Vol] 11 mg/dL Normal 4-19 [facility] Comment on above: Performed By: #### L 500.2500 ####[facility] [address] [place], [address] Bedside Glucoseon 11-06-2024 FINGERSTICK GLU 100 mg/dL Normal 74-106 [facility] Comment on above: Result Comment: EDGAR GEMENT OF PATIENT CARE PER NURSING PROTOCOL Performed By: #### L 501.080 ####[facility] [address] [place], [address] FINGERSTICK GLU 151 mg/dL High 74-106 [facility] Comment on above: Result Comment: EDGAR GEMENT OF PATIENT CARE PER NURSING PROTOCOL Performed By: #### L 501.080 ####[facility] [address] [place], [address] FINGERSTICK GLU 153 mg/dL High 74-106 [facility] Comment on above: Result Comment: EDGAR GEMENT OF PATIENT CARE PER NURSING PROTOCOL Performed By: #### L 501.080 ####[facility] [address] [place], [address] FINGERSTICK GLU 50 mg/dL Low 74-106 [facility] Comment on above: Result Comment: EDGAR GEMENT OF PATIENT CARE PER NURSING PROTOCOL Performed By: #### L 501.080 ####[facility] [address] [place], [address] FINGERSTICK GLU 141 mg/dL High 74-106 [facility] Comment on above: Result Comment: EDGAR GEMENT OF PATIENT CARE PER NURSING PROTOCOL Performed By: #### L 501.080 ####[facility] [address] [place], [address] FINGERSTICK GLU 129 mg/dL High 74-106 [facility] Comment on above: Result Comment: EDGAR GEMENT OF PATIENT CARE PER NURSING PROTOCOL Performed By: #### L 501.080 ####[facility] [address] [place], [address] CBC W/Diff, Automatedon 10-26 Absolute Lymph 2.60 X10 3/uL Normal 0.83-4.51 [facility] Comment on above: Performed By: #### L 100.0100 ####[facility] [address] [place], [address] Absolute Neut 7.6 X10 3/uL Normal 2.0-7.7 [facility] Comment on above: Performed By: #### L 100.0100 ####[facility] [address] [place], [address] Basophils/100 WBC (Bld) 0.5 % Normal 0-1 [facility] Comment on above: Performed By: #### L 100.0100 ####[facility] [address] [place], [address] Eosinophils/100 WBC (Bld) 0.4 % Normal 0-5 [facility] Comment on above: Performed By: #### L 100.0100 ####[facility] [address] [place], [address] Erythrocyte distribution width (RBC) [Ratio] 13.7 % Normal 11.6-14.6 [facility] Comment on above: Performed By: #### L 100.0100 ####[facility] [address] [place], [address] Hematocrit (Bld) [Volume fraction] 36.0 % Low 37-47 [facility] Comment on above: Performed By: #### L 100.0100 ####[facility] [address] [place], [address] Hemoglobin (Bld) [Mass/Vol] 12.2 g/dL Normal 12.0-15.0 [facility] Comment on above: Performed By: #### L 100.0100 ####[facility] [address] [place], [address] IG% 1.000 High 0.0-0.9 [facility] Comment on above: Result Comment: IG% - Immature Granulocytes (promyelocytes, myelocytes andmetamyelocytes) > 1% indicates that a LEFT SHIFT is Present. Performed By: #### L 100.0100 ####[facility] [address] [place], [address] Lymphocytes/100 WBC (Bld) 23.4 % Normal 19-41 [facility] Comment on above: Performed By: #### L 100.0100 ####[facility] [address] [place], [address] MCH (RBC) [Entitic mass] 29.7 pg Normal 27.0-32.0 [facility] Comment on above: Performed By: #### L 100.0100 ####[facility] [address] [place], [address] MCHC (RBC) [Mass/Vol] 33.9 g/dL Normal 32-36 [facility] Comment on above: Performed By: #### L 100.0100 ####[facility] [address] [place], [address] MCV (RBC) [Entitic vol] 87.6 fL Normal 81-99 [facility] Comment on above: Performed By: #### L 100.0100 ####[facility] [address] [place], [address] Monocytes/100 WBC (Bld) 6.7 % Normal 0-10 [facility] Comment on above: Performed By: #### L 100.0100 ####[facility] [address] [place], [address] Neutrophils/100 WBC (Bld) 68.0 % Normal 47-70 [facility] Comment on above: Performed By: #### L 100.0100 ####[facility] [address] [place], [address] Nucleated RBC (Bld) [#/Vol] 0 10*3/uL Normal 0-5 [facility] Comment on above: Performed By: #### L 100.0100 ####[facility] [address] [place], [address] Platelet mean volume (Bld) [Entitic vol] 10.8 fL Normal 6.2-12.0 [facility] Comment on above: Performed By: #### L 100.0100 ####[facility] [address] [place], [address] Platelets (Bld) [#/Vol] 188 10*3/uL Normal 150-450 [facility] Comment on above: Performed By: #### L 100.0100 ####[facility] [address] [place], [address] RBC (Bld) [#/Vol] 4.11 10*6/uL Low 4.2-5.4 [facility] Comment on above: Performed By: #### L 100.0100 ####[facility] [address] [place], [address] RDW SD 43.6 fl Normal 35.1-43.9 [facility] Comment on above: Performed By: #### L 100.0100 ####[facility] [address] [place], [address] WBC (Bld) [#/Vol] 11.1 10*3/uL High 4.4-11.0 [facility] Comment on above: Performed By: #### L 100.0100 ####[facility] [address] [place], [address] Comprehensive Metabolic Prof ilon 11-06-2024 Albumin [Mass/Vol] 3.6 g/dL Normal 3.5-5.0 [facility] Comment on above: Order Comment: CMP-T IMED FOR A Q6 BMP Performed By: #### L 501.2300, L501.5200, L500.4050 ####[facility] [address] [place], [address] Albumin/Globulin [Mass ratio] 1.6 {ratio} Normal 0.9-2.4 [facility] Comment on above: Order Comment: CMP-T IMED FOR A Q6 BMP Performed By: #### L 501.2300, L501.5200, L500.4050 ####[facility] [address] [place], [address] ALK PHOS 76 U/L Normal 35-104 [facility] Comment on above: Order Comment: CMP-T IMED FOR A Q6 BMP Performed By: #### L 501.2300, L501.5200, L500.4050 ####[facility] [address] [place], [address] ALT [Catalytic activity/Vol] 14 U/L Normal <=34 [facility] Comment on above: Order Comment: CMP-T IMED FOR A Q6 BMP Performed By: #### L 501.2300, L501.5200, L500.4050 ####[facility] [address] [place], [address] AST [Catalytic activity/Vol] 17 U/L Normal <=31 [facility] Comment on above: Order Comment: CMP-T IMED FOR A Q6 BMP Performed By: #### L 501.2300, L501.5200, L500.4050 ####[facility] [address] [place], [address] Bilirubin [Mass/Vol] 0.91 mg/dL Normal 0.00-1.30 [facility] Comment on above: Order Comment: CMP-T IMED FOR A Q6 BMP Performed By: #### L 501.2300, L501.5200, L500.4050 ####[facility] [address] [place], [address] BUN/CRE 12.2 RATIO Normal 10-20 [facility] Comment on above: Order Comment: CMP-T IMED FOR A Q6 BMP Performed By: #### L 501.2300, L501.5200, L500.4050 ####[facility] [address] [place], [address] Calcium [Mass/Vol] 8.2 mg/dL Normal 7.6-11.0 [facility] Comment on above: Order Comment: CMP-T IMED FOR A Q6 BMP Performed By: #### L 501.2300, L501.5200, L500.4050 ####[facility] [address] [place], [address] Chloride [Moles/Vol] 105 mmol/L Normal 98-108 [facility] Comment on above: Order Comment: CMP-T IMED FOR A Q6 BMP Performed By: #### L 501.2300, L501.5200, L500.4050 ####[facility] [address] [place], [address] CO2 [Moles/Vol] 22.2 mmol/L Normal 21.0-32.0 [facility] Comment on above: Order Comment: CMP-T IMED FOR A Q6 BMP Performed By: #### L 501.2300, L501.5200, L500.4050 ####[facility] [address] [place], [address] Creatinine [Mass/Vol] 0.61 mg/dL Low 0.70-1.20 [facility] Comment on above: Order Comment: CMP-T IMED FOR A Q6 BMP Performed By: #### L 501.2300, L501.5200, L500.4050 ####[facility] [address] [place], [address] ECRCL 140.93 ml/min Normal 50-250 [facility] Comment on above: Order Comment: CMP-T IMED FOR A Q6 BMP Performed By: #### L 501.2300, L501.5200, L500.4050 ####[facility] [address] [place], [address] GAP 11 Normal 5-15 [facility] Comment on above: Order Comment: CMP-T IMED FOR A Q6 BMP Performed By: #### L 501.2300, L501.5200, L500.4050 ####[facility] [address] [place], [address] GFR/1.73 sq M.predicted among non-blacks MDRD (S/P/Bld) [Vol rate/Area] 123 mL/min/{1.73_m2} Normal >60 [facility] Comment on above: Order Comment: CMP-T IMED FOR A Q6 BMP Result Comment: mL/m in/1.73m2 CKD-EPI Creatinine Equation (2020) Performed By: #### L 501.2300, L501.5200, L500.4050 ####[facility] [address] [place], [address] Globulin (S) [Mass/Vol] 2.2 g/dL Normal 2.2-4.2 [facility] Comment on above: Order Comment: CMP-T IMED FOR A Q6 BMP Performed By: #### L 501.2300, L501.5200, L500.4050 ####[facility] [address] [place], [address] Glucose [Mass/Vol] 122 mg/dL High 70-99 [facility] Comment on above: Order Comment: CMP-T IMED FOR A Q6 BMP Performed By: #### L 501.2300, L501.5200, L500.4050 ####[facility] [address] [place], [address] Potassium [Moles/Vol] 3.4 mmol/L Normal 3.3-5.1 [facility] Comment on above: Order Comment: CMP-T IMED FOR A Q6 BMP Performed By: #### L 501.2300, L501.5200, L500.4050 ####[facility] [address] [place], [address] Sodium [Moles/Vol] 138 mmol/L Normal 133-145 [facility] Comment on above: Order Comment: CMP-T IMED FOR A Q6 BMP Performed By: #### L 501.2300, L501.5200, L500.4050 ####[facility] [address] [place], [address] T PROT 5.9 g/dL Normal 5.9-8.4 [facility] Comment on above: Order Comment: CMP-T IMED FOR A Q6 BMP Performed By: #### L 501.2300, L501.5200, L500.4050 ####[facility] [address] [place], [address] Urea nitrogen [Mass/Vol] 7 mg/dL Normal 4-19 [facility] Comment on above: Order Comment: CMP-T IMED FOR A Q6 BMP Performed By: #### L 501.2300, L501.5200, L500.4050 ####[facility] [address] [place], [address] Discharge Instructionon 10-26 Discharge Instruction Normal [facility] Magnesiumon 11-06-2024 Magnesium [Mass/Vol] 2.2 mg/dL Normal 1.5-2.2 [facility] Comment on above: Order Comment: CMP-T IMED FOR A Q6 BMP Performed By: #### L 501.2300, L501.5200, L500.4050 ####[facility] [address] [place], [address] Phosphoruson 11-06-2024 Phosphate [Mass/Vol] 2.1 mg/dL Low 2.7-4.5 [facility] Comment on above: Order Comment: CMP-T IMED FOR A Q6 BMP Performed By: #### L 501.2300, L501.5200, L500.4050 ####[facility] [address] [place], [address] Urine Drug Screen (VISTA)on 11-06-2024 AMPHETAMINES Negative Normal <1000 ng/mL [facility] Comment on above: Performed By: #### L 505.5000 ####[facility] [address] [place], [address] BARBITIURATES Negative Normal < 200 ng/mL [facility] Comment on above: Performed By: #### L 505.5000 ####[facility] [address] [place], [address] BENZODIAZIPINE Negative Normal < 200 ng/mL [facility] Comment on above: Performed By: #### L 505.5000 ####[facility] [address] [place], [address] BUP Ur Drug Scr Negative Normal < 200 ng/mL [facility] Comment on above: Performed By: #### L 505.5000 ####[facility] [address] [place], [place], [phone] COCAINE Negative Normal < 300 ng/mL [facility] Comment on above: Performed By: #### L 505.5000 ####[facility] [address] [place], [address] Fentanyl Negative Normal [facility] Comment on above: Performed By: #### L 505.5000 ####[facility] [address] [place], [address] METHADONE Negative Normal < 300 ng/mL [facility] Comment on above: Performed By: #### L 505.5000 ####[facility] [address] [place], [address] OPIATES Negative Normal < 300 ng/mL [facility] Comment on above: Performed By: #### L 505.5000 ####[facility] [address] [place], [address] OXYCODONE Negative Normal < 100 ng/mL [facility] Comment on above: Performed By: #### L 505.5000 ####[facility] [address] [place], [address] PCP Negative Normal < 25 ng/mL [facility] Comment on above: Performed By: #### L 505.5000 ####[facility] [address] [place], [address] THC Positive Normal < 50 ng/mL [facility] Comment on above: Result Comment: If c onfirmation testing is needed, a separate order will berequired to send out testing to the reference laboratory. Performed By: #### L 505.5000 ####[facility] [address] [place], [address] Basic Metabolic Profile (BMP )on 11-05-2024 BUN/CRE 18.5 RATIO Normal 10-20 [facility] Comment on above: Performed By: #### L 500.2500 ####[facility] [address] [place], [address] Calcium [Mass/Vol] 7.5 mg/dL Low 7.6-11.0 [facility] Comment on above: Performed By: #### L 500.2500 ####[facility] [address] [place], [address] Chloride [Moles/Vol] 99 mmol/L Normal 98-108 [facility] Comment on above: Performed By: #### L 500.2500 ####[facility] [address] [place], [address] CO2 [Moles/Vol] 15.7 mmol/L Low 21.0-32.0 [facility] Comment on above: Performed By: #### L 500.2500 ####[facility] [address] [place], [address] Creatinine [Mass/Vol] 0.74 mg/dL Normal 0.70-1.20 [facility] Comment on above: Performed By: #### L 500.2500 ####[facility] [address] [place], [address] ECRCL 116.17 ml/min Normal 50-250 [facility] Comment on above: Performed By: #### L 500.2500 ####[facility] [address] [place], [address] GAP 18 High 5-15 [facility] Comment on above: Performed By: #### L 500.2500 ####[facility] [address] [place], [address] GFR/1.73 sq M.predicted among non-blacks MDRD (S/P/Bld) [Vol rate/Area] 111 mL/min/{1.73_m2} Normal >60 [facility] Comment on above: Result Comment: mL/m in/1.73m2 CKD-EPI Creatinine Equation (2020) Performed By: #### L 500.2500 ####[facility] [address] [place], [address] Glucose [Mass/Vol] 176 mg/dL High 70-99 [facility] Comment on above: Performed By: #### L 500.2500 ####[facility] [address] [place], [address] Potassium [Moles/Vol] 4.8 mmol/L Normal 3.3-5.1 [facility] Comment on above: Performed By: #### L 500.2500 ####[facility] [address] [place], [address] Sodium [Moles/Vol] 133 mmol/L Normal 133-145 [facility] Comment on above: Performed By: #### L 500.2500 ####[facility] [address] [place], [address] Urea nitrogen [Mass/Vol] 14 mg/dL Normal 4-19 [facility] Comment on above: Performed By: #### L 500.2500 ####[facility] [address] [place], [address] BUN Normal 4-19 [facility] Comment on above: Result Comment: DUPL ICATE Performed By: #### L 500.2500 ####[facility] [address] [place], [address] BUN/CRE Normal 10-20 [facility] Comment on above: Result Comment: DUPL ICATE Performed By: #### L 500.2500 ####[facility] [address] [place], [address] Calcium Normal 7.6-11.0 [facility] Comment on above: Result Comment: DUPL ICATE Performed By: #### L 500.2500 ####[facility] [address] [place], [address] CL Normal 98-108 [facility] Comment on above: Result Comment: DUPL ICATE Performed By: #### L 500.2500 ####[facility] [address] [place], [address] CO2 Normal 21.0-32.0 [facility] Comment on above: Result Comment: DUPL ICATE Performed By: #### L 500.2500 ####[facility] [address] [place], [address] CREAT,SERUM Normal 0.70-1.20 [facility] Comment on above: Result Comment: DUPL ICATE Performed By: #### L 500.2500 ####[facility] [address] [place], [address] eGFR Normal >60 [facility] Comment on above: Result Comment: DUPL ICATE Performed By: #### L 500.2500 ####[facility] [address] [place], [address] GAP Normal 5-15 [facility] Comment on above: Result Comment: DUPL ICATE Performed By: #### L 500.2500 ####[facility] [address] [place], [address] GLU Normal 70-99 [facility] Comment on above: Result Comment: DUPL ICATE Performed By: #### L 500.2500 ####[facility] [address] [place], [address] Potassium Normal 3.3-5.1 [facility] Comment on above: Result Comment: DUPL ICATE Performed By: #### L 500.2500 ####[facility] [address] [place], [address] Basic Metabolic Profile (BMP) Normal 133-145 [facility] Comment on above: Result Comment: DUPL ICATE Performed By: #### L 500.2500 ####[facility] [address] [place], [address] Bedside Glucoseon 11-05-2024 FINGERSTICK GLU 109 mg/dL High 74-106 [facility] Comment on above: Result Comment: EDGAR GEMENT OF PATIENT CARE PER NURSING PROTOCOL Performed By: #### L 501.080 ####[facility] [address] [place], [address] FINGERSTICK GLU 222 mg/dL High 74-106 [facility] Comment on above: Result Comment: EDGAR GEMENT OF PATIENT CARE PER NURSING PROTOCOL Performed By: #### L 501.080 ####[facility] [address] [place], [address] [facility] GEM TEST Positive Normal [facility] Comment on above: Performed By: #### L 9000.0800 ####[facility] [address] [place], [address] Base excess Calc (Bld) [Moles/Vol] -5 mmol/L Low -2 to +2 [facility] Comment on above: Performed By: #### L 9000.0800 ####[facility] [address] [place], [address] Blood Gas Type ART [facility] Comment on above: Performed By: #### L 9000.0800 ####[facility] [address] [place], [address] CO2 [Moles/Vol] 21 mmol/L [facility] Comment on above: Performed By: #### L 9000.0800 ####[facility] [address] [place], [address] HCO3 (Bld) [Moles/Vol] 19.9 mmol/L Low 22-26 [facility] Comment on above: Performed By: #### L 9000.0800 ####[facility] [address] [place], [address] Mode Not entered [facility] Comment on above: Performed By: #### L 9000.0800 ####[facility] [address] [place], [address] O2 Delivery Dev Room Air [facility] Comment on above: Performed By: #### L 9000.0800 ####[facility] [address] [place], [address] pCO2 31.1 mmHg Low 35-45 [facility] Comment on above: Performed By: #### L 0.0800 ####[facility] [address] [place], [address] pH (Bld) 7.42 [pH] Normal 7.35-7.45 [facility] Comment on above: Performed By: #### L 9000.0800 ####[facility] [address] [place], [address] PO2 89 mmHG Normal 75-100 [facility] Comment on above: Performed By: #### L 9000.0800 ####[facility] [address] [place], [address] SITE L Radial Normal [facility] Comment on above: Performed By: #### L 0.0800 ####[facility] [address] [place], [address] SO2 97 Normal 95-99 [facility] Comment on above: Performed By: #### L 9000.0800 ####[facility] [address] [place], [address] CBC W/Diff, Automatedon 10-26 Absolute Lymph 0.93 X10 3/uL Normal 0.83-4.51 [facility] Comment on above: Performed By: #### L 700.6800, L501.2450, L503.6005, L100.0100, L500.4050 ####[facility] [address] [place], [address] Absolute Neut 13.4 X10 3/uL High 2.0-7.7 [facility] Comment on above: Performed By: #### L 700.6800, L501.2450, L503.6005, L100.0100, L500.4050 ####[facility] [address] [place], [address] Basophils/100 WBC (Bld) 0.2 % Normal 0-1 [facility] Comment on above: Performed By: #### L 700.6800, L501.2450, L503.6005, L100.0100, L500.4050 ####[facility] [address] [place], [address] Eosinophils/100 WBC (Bld) 0.0 % Normal 0-5 [facility] Comment on above: Performed By: #### L 700.6800, L501.2450, L503.6005, L100.0100, L500.4050 ####[facility] [address] [place], [address] Erythrocyte distribution width (RBC) [Ratio] 13.6 % Normal 11.6-14.6 [facility] Comment on above: Performed By: #### L 700.6800, L501.2450, L503.6005, L100.0100, L500.4050 ####[facility] [address] [place], [address] Hematocrit (Bld) [Volume fraction] 38.0 % Normal 37-47 [facility] Comment on above: Performed By: #### L 700.6800, L501.2450, L503.6005, L100.0100, L500.4050 ####[facility] [address] [place], [address] Hemoglobin (Bld) [Mass/Vol] 12.7 g/dL Normal 12.0-15.0 [facility] Comment on above: Performed By: #### L 700.6800, L501.2450, L503.6005, L100.0100, L500.4050 ####[facility] [address] [place], [address] IG% 1.000 High 0.0-0.9 [facility] Comment on above: Result Comment: IG% - Immature Granulocytes (promyelocytes, myelocytes andmetamyelocytes) > 1% indicates that a LEFT SHIFT is Present. Performed By: #### L 700.6800, L501.2450, L503.6005, L100.0100, L500.4050 ####[facility] [address] [place], [address] Lymphocytes/100 WBC (Bld) 6.1 % Low 19-41 [facility] Comment on above: Performed By: #### L 700.6800, L501.2450, L503.6005, L100.0100, L500.4050 ####[facility] [address] [place], [address] MCH (RBC) [Entitic mass] 29.9 pg Normal 27.0-32.0 [facility] Comment on above: Performed By: #### L 700.6800, L501.2450, L503.6005, L100.0100, L500.4050 ####[facility] [address] [place], [address] MCHC (RBC) [Mass/Vol] 33.4 g/dL Normal 32-36 [facility] Comment on above: Performed By: #### L 700.6800, L501.2450, L503.6005, L100.0100, L500.4050 ####[facility] [address] [place], [address] MCV (RBC) [Entitic vol] 89.4 fL Normal 81-99 [facility] Comment on above: Performed By: #### L 700.6800, L501.2450, L503.6005, L100.0100, L500.4050 ####[facility] [address] [place], [address] Monocytes/100 WBC (Bld) 4.7 % Normal 0-10 [facility] Comment on above: Performed By: #### L 700.6800, L501.2450, L503.6005, L100.0100, L500.4050 ####[facility] [address] [place], [address] Neutrophils/100 WBC (Bld) 88.0 % High 47-70 [facility] Comment on above: Performed By: #### L 700.6800, L501.2450, L503.6005, L100.0100, L500.4050 ####[facility] [address] [place], [address] Nucleated RBC (Bld) [#/Vol] 0 10*3/uL Normal 0-5 [facility] Comment on above: Performed By: #### L 700.6800, L501.2450, L503.6005, L100.0100, L500.4050 ####[facility] [address] [place], [address] Platelet mean volume (Bld) [Entitic vol] 11.7 fL Normal 6.2-12.0 [facility] Comment on above: Performed By: #### L 700.6800, L501.2450, L503.6005, L100.0100, L500.4050 ####[facility] [address] [place], [address] Platelets (Bld) [#/Vol] 201 10*3/uL Normal 150-450 [facility] Comment on above: Performed By: #### L 700.6800, L501.2450, L503.6005, L100.0100, L500.4050 ####[facility] [address] [place], [address] RBC (Bld) [#/Vol] 4.25 10*6/uL Normal 4.2-5.4 [facility] Comment on above: Performed By: #### L 700.6800, L501.2450, L503.6005, L100.0100, L500.4050 ####[facility] [address] [place], [place], [address] RDW SD 44.6 fl High 35.1-43.9 [facility] Comment on above: Performed By: #### L 700.6800, L501.2450, L503.6005, L100.0100, L500.4050 ####[facility] [address] [place], [place], [address] WBC (Bld) [#/Vol] 15.2 10*3/uL High 4.4-11.0 [facility] Comment on above: Performed By: #### L 700.6800, L501.2450, L503.6005, L100.0100, L500.4050 ####[facility] [address], [address] [facility] [place] [facility] KATHLEEN VILLA ([id number]) 1995 [facility] Date Time Provider Department 11/05/24 LETICIA [facility] During your visit today, we [...] Units subcutaneously every 24 hours. 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 Normal [facility] Metabolic Prof ilon 11-05-2024 Albumin [Mass/Vol] 4.1 g/dL Normal 3.5-5.0 [facility] Comment on above: Performed By: #### L 700.6800, L501.2450, L503.6005, L100.0100, L500.4050 ####[facility] [address] [place], [address] Albumin/Globulin [Mass ratio] 1.5 {ratio} Normal 0.9-2.4 [facility] Comment on above: Performed By: #### L 700.6800, L501.2450, L503.6005, L100.0100, L500.4050 ####[facility] [address] [place], [address] ALK PHOS 89 U/L Normal 35-104 [facility] Comment on above: Performed By: #### L 700.6800, L501.2450, L503.6005, L100.0100, L500.4050 ####[facility] [address] [place], [address] ALT [Catalytic activity/Vol] 17 U/L Normal <=34 [facility] Comment on above: Performed By: #### L 700.6800, L501.2450, L503.6005, L100.0100, L500.4050 ####[facility] [address] [place], [address] AST [Catalytic activity/Vol] 21 U/L Normal <=31 [facility] Comment on above: Performed By: #### L 700.6800, L501.2450, L503.6005, L100.0100, L500.4050 ####[facility] [address] [place], [address] Bilirubin [Mass/Vol] 1.15 mg/dL Normal 0.00-1.30 [facility] Comment on above: Performed By: #### L 700.6800, L501.2450, L503.6005, L100.0100, L500.4050 ####[facility] [address] [place], [address] BUN/CRE 18.4 RATIO Normal 10-20 [facility] Comment on above: Performed By: #### L 700.6800, L501.2450, L503.6005, L100.0100, L500.4050 ####[facility] [address] [place], [address] Calcium [Mass/Vol] 8.2 mg/dL Normal 7.6-11.0 [facility] Comment on above: Performed By: #### L 700.6800, L501.2450, L503.6005, L100.0100, L500.4050 ####[facility] [address] [place], [address] Chloride [Moles/Vol] 94 mmol/L Low 98-108 [facility] Comment on above: Performed By: #### L 700.6800, L501.2450, L503.6005, L100.0100, L500.4050 ####[facility] [address] [place], [address] CO2 [Moles/Vol] 12.8 mmol/L Low 21.0-32.0 [facility] Comment on above: Performed By: #### L 700.6800, L501.2450, L503.6005, L100.0100, L500.4050 ####[facility] [address] [place], [address] Creatinine [Mass/Vol] 0.86 mg/dL Normal 0.70-1.20 [facility] Comment on above: Performed By: #### L 700.6800, L501.2450, L503.6005, L100.0100, L500.4050 ####[facility] [address] [place], [address] ECRCL 99.96 ml/min Normal 50-250 [facility] Comment on above: Performed By: #### L 700.6800, L501.2450, L503.6005, L100.0100, L500.4050 ####[facility] [address] [place], [address] GAP 27 High 5-15 [facility] Comment on above: Performed By: #### L 700.6800, L501.2450, L503.6005, L100.0100, L500.4050 ####[facility] [address] [place], [address] GFR/1.73 sq M.predicted among non-blacks MDRD (S/P/Bld) [Vol rate/Area] 93 mL/min/{1.73_m2} Normal >60 [facility] Comment on above: Result Comment: mL/m in/1.73m2 CKD-EPI Creatinine Equation (2020) Performed By: #### L 700.6800, L501.2450, L503.6005, L100.0100, L500.4050 ####[facility] [address] [place], [address] Globulin (S) [Mass/Vol] 2.8 g/dL Normal 2.2-4.2 [facility] Comment on above: Performed By: #### L 700.6800, L501.2450, L503.6005, L100.0100, L500.4050 ####[facility] [address] [place], [address] Glucose [Mass/Vol] 251 mg/dL High 70-99 [facility] Comment on above: Performed By: #### L 700.6800, L501.2450, L503.6005, L100.0100, L500.4050 ####[facility] [address] [place], [address] Potassium [Moles/Vol] 3.0 mmol/L Low 3.3-5.1 [facility] Comment on above: Performed By: #### L 700.6800, L501.2450, L503.6005, L100.0100, L500.4050 ####[facility] [address] [place], [address] Sodium [Moles/Vol] 134 mmol/L Normal 133-145 [facility] Comment on above: Performed By: #### L 700.6800, L501.2450, L503.6005, L100.0100, L500.4050 ####[facility] [address] [place], [address] T PROT 6.9 g/dL Normal 5.9-8.4 [facility] Comment on above: Performed By: #### L 700.6800, L501.2450, L503.6005, L100.0100, L500.4050 ####[facility] [address] [place], [address] Urea nitrogen [Mass/Vol] 16 mg/dL Normal 4-19 [facility] Comment on above: Performed By: #### L 700.6800, L501.2450, L503.6005, L100.0100, L500.4050 ####[facility] [address] [place], [address] Emergency Department Summary on 11-05-2024 Emergency Department Summary Normal [facility] Gallbladderon 11-05-2024 Gallbladder Normal [facility] H AND P Exam - Hospitaliston 11-05-2024 H&P Exam - Hospitalist Normal [facility] L501.6901on 11-05-2024 BETA-HYDROXYBUT 7.1 mmol/L Normal 0.0-0.3 [facility] Comment on above: Performed By: #### L 501.6901 ####[facility] [address] [place], [address] Lactic Acidon 11-05-2024 Lactate [Moles/Vol] mmol/L Normal 0.0-2.0 [facility] Comment on above: Order Comment: Y Performed By: #### L 700.6800, L501.2450, L503.6005, L100.0100, L500.4050 ####[facility] [address] [place], [address] Lipaseon 11-05-2024 Lipase [Catalytic activity/Vol] 13 U/L Normal 13-75 [facility] Comment on above: Result Comment: Sulma schmitz note:LIPASE revised reference range effective 22.New Lipase methodology. Expected to produce lower valuesthan the previous assay method.NEW Reference Range: 13 - 75 U/L Performed By: #### L 700.6800, L501.2450, L503.6005, L100.0100, L500.4050 ####[facility] [address] [place], [address] ,Serum,hCG Quali.on 11-05-2024 HCG, SERUM QUAL Negative Normal [facility] Comment on above: Performed By: #### L 700.6800, L501.2450, L503.6005, L100.0100, L500.4050 ####[facility] [address] [place], [address] Urinalysis, Completeon 11-05 BACTERIA 1+ /hpf Normal None Seen [facility] Comment on above: Order Comment: CLEAN CATCH Performed By: #### L 400.0001 ####[facility] [address] [place], [address] EPI,SQUAMOUS 0-5 SEEN Normal 5-10 [facility] Comment on above: Order Comment: CLEAN CATCH Performed By: #### L 400.0001 ####[facility] [address] [place], [address] WBC 0-5 SEEN Normal 0-5 [facility] Comment on above: Order Comment: CLEAN CATCH Performed By: #### L 400.0001 ####[facility] [address] [place], [address] RBC 0 SEEN Normal 0-5 [facility] Comment on above: Order Comment: CLEAN CATCH Performed By: #### L 400.0001 ####[facility] [address] [place], [address] Mucus Ql (Urine sed) 0 SEEN Normal [facility] Comment on above: Order Comment: CLEAN CATCH Performed By: #### L 400.0001 ####[facility] [address] [place], [address] Venous Blood Gason 5 Blood Gas Type ISABELLE Normal [facility] Comment on above: Performed By: #### L 9000.0810 ####[facility] [address] [place], [address] CO2 [Moles/Vol] 14 mmol/L Low 23-33 [facility] Comment on above: Performed By: #### L 9000.0810 ####[facility] [address] [place], [address] HCO3 (Bld) [Moles/Vol] 14 mmol/L Low 22-26 [facility] Comment on above: Performed By: #### L 9000.0810 ####[facility] [address] [place], [address] O2 Delivery Dev Not entered Normal [facility] Comment on above: Performed By: #### L 9000.0810 ####[facility] [address] [place], [address] SITE Not entered Normal [facility] Comment on above: Performed By: #### L 9000.0810 ####[facility] [address] [place], [address] VBG BE -11 mmol/L Low -1.0-3.5 [facility] Comment on above: Performed By: #### L 9000.0810 ####[facility] [address] [place], [address] VBG pCO2 20.7 mmHg Low 41-51 [facility] Comment on above: Performed By: #### L 9000.0810 ####[facility] [address] [place], [address] VBG pH 7.43 High 7.32-7.42 [facility] Comment on above: Performed By: #### L 9000.0810 ####[facility] [address] [place], [address] VBG PO2 68 mmHg High 25-40 [facility] Comment on above: Performed By: #### L 9000.0810 ####[facility] [address] [place], [address] VBG SO2 95 High 50-70 [facility] Comment on above: Performed By: #### L 9000.0810 ####[facility] [address] [place], [address] L501.6901on 03-10-2025 BETA-HYDROXYBUT 1.5 mmol/L Normal 0.0-0.3 [facility] Comment on above: Performed By: #### L 501.6901 ####[facility] [address] [place], [address] Venous Blood Gason 5 CO2 [Moles/Vol] 20 mmol/L Low 23-33 [facility] Comment on above: Performed By: #### L 9000.0810 ####[facility] [address] [place], [address] HCO3 (Bld) [Moles/Vol] 19 mmol/L Low 22-26 [facility] Comment on above: Performed By: #### L 9000.0810 ####[facility] [address] [place], [address] VBG SO2 94 High 50-70 [facility] Comment on above: Performed By: #### L 9000.0810 ####[facility] [address] [place], [address] Blood Gas Type ISABELLE Normal [facility] Comment on above: Performed By: #### L 9000.0810 ####[facility] [address] [place], [address] VBG pCO2 30.3 mmHg Low 41-51 [facility] Comment on above: Performed By: #### L 9000.0810 ####[facility] [address] [place], [address] VBG pH 7.40 Normal 7.32-7.42 [facility] Comment on above: Performed By: #### L 9000.0810 ####[facility] [address] [place], [address] VBG PO2 71 mmHg High 25-40 [facility] Comment on above: Performed By: #### L 9000.0810 ####[facility] [address] [place], [address] Abdomen/Pelvis W IV Cont ONL Yon 11-03-2024 Abdomen/Pelvis W IV Cont ONLY Normal [facility] CBC W/Diff, Automatedon 03-0 Absolute Lymph 1.92 X10 3/uL Normal 0.83-4.51 [facility] Comment on above: Performed By: #### L 500.4050, L100.0100, L501.2450 ####[facility] [address] [place], [address] Absolute Neut 8.4 X10 3/uL High 2.0-7.7 [facility] Comment on above: Performed By: #### L 500.4050, L100.0100, L501.2450 ####[facility] [address] [place], [address] Basophils/100 WBC (Bld) 0.5 % Normal 0-1 [facility] Comment on above: Performed By: #### L 500.4050, L100.0100, L501.2450 ####[facility] [address] [place], [address] Eosinophils/100 WBC (Bld) 0.3 % Normal 0-5 [facility] Comment on above: Performed By: #### L 500.4050, L100.0100, L501.2450 ####[facility] [address] [place], [address] Erythrocyte distribution width (RBC) [Ratio] 13.2 % Normal 11.6-14.6 [facility] Comment on above: Performed By: #### L 500.4050, L100.0100, L501.2450 ####[facility] [address] [place], [address] Hematocrit (Bld) [Volume fraction] 42.1 % Normal 37-47 [facility] Comment on above: Performed By: #### L 500.4050, L100.0100, L501.2450 ####[facility] [address] [place], [address] Hemoglobin (Bld) [Mass/Vol] 14.2 g/dL Normal 12.0-15.0 [facility] Comment on above: Performed By: #### L 500.4050, L100.0100, L501.2450 ####[facility] [address] [place], [address] IG% 0.800 Normal 0.0-0.9 [facility] Comment on above: Result Comment: IG% - Immature Granulocytes (promyelocytes, myelocytes andmetamyelocytes) > 1% indicates that a LEFT SHIFT is Present. Performed By: #### L 500.4050, L100.0100, L501.2450 ####[facility] [address] [place], [address] Lymphocytes/100 WBC (Bld) 17.5 % Low 19-41 [facility] Comment on above: Performed By: #### L 500.4050, L100.0100, L501.2450 ####[facility] [address] [place], [address] MCH (RBC) [Entitic mass] 29.3 pg Normal 27.0-32.0 [facility] Comment on above: Performed By: #### L 500.4050, L100.0100, L501.2450 ####[facility] [address] [place], [address] MCHC (RBC) [Mass/Vol] 33.7 g/dL Normal 32-36 [facility] Comment on above: Performed By: #### L 500.4050, L100.0100, L501.2450 ####[facility] [address] [place], [address] MCV (RBC) [Entitic vol] 87.0 fL Normal 81-99 [facility] Comment on above: Performed By: #### L 500.4050, L100.0100, L501.2450 ####[facility] [address] [place], [address] Monocytes/100 WBC (Bld) 4.6 % Normal 0-10 [facility] Comment on above: Performed By: #### L 500.4050, L100.0100, L501.2450 ####[facility] [address] [place], [address] Neutrophils/100 WBC (Bld) 76.3 % High 47-70 [facility] Comment on above: Performed By: #### L 500.4050, L100.0100, L501.2450 ####[facility] [address] [place], [address] Nucleated RBC (Bld) [#/Vol] 0 10*3/uL Normal 0-5 [facility] Comment on above: Performed By: #### L 500.4050, L100.0100, L501.2450 ####[facility] [address] [place], [address] Platelet mean volume (Bld) [Entitic vol] 12.4 fL High 6.2-12.0 [facility] Comment on above: Performed By: #### L 500.4050, L100.0100, L501.2450 ####[facility] [address] [place], [address] Platelets (Bld) [#/Vol] 263 10*3/uL Normal 150-450 [facility] Comment on above: Performed By: #### L 500.4050, L100.0100, L501.2450 ####[facility] [address] [place], [address] RBC (Bld) [#/Vol] 4.84 10*6/uL Normal 4.2-5.4 [facility] Comment on above: Performed By: #### L 500.4050, L100.0100, L501.2450 ####[facility] [address] [place], [address] RDW SD 41.6 fl Normal 35.1-43.9 [facility] Comment on above: Performed By: #### L 500.4050, L100.0100, L501.2450 ####[facility] [address] [place], [address] WBC (Bld) [#/Vol] 11.0 10*3/uL Normal 4.4-11.0 [facility] Comment on above: Performed By: #### L 500.4050, L100.0100, L501.2450 ####[facility] [address] [place], [address] Comprehensive Metabolic Prof ilon 11-03-2024 Albumin [Mass/Vol] 4.7 g/dL Normal 3.5-5.0 [facility] Comment on above: Performed By: #### L 500.4050, L100.0100, L501.2450 ####[facility] [address] [place], [address] Albumin/Globulin [Mass ratio] 1.4 {ratio} Normal 0.9-2.4 [facility] Comment on above: Performed By: #### L 500.4050, L100.0100, L501.2450 ####[facility] [address] [place], [address] ALK PHOS 101 U/L Normal 35-104 [facility] Comment on above: Performed By: #### L 500.4050, L100.0100, L501.2450 ####[facility] [address] [place], [address] ALT [Catalytic activity/Vol] 22 U/L Normal <=34 [facility] Comment on above: Performed By: #### L 500.4050, L100.0100, L501.2450 ####[facility] [address] [place], [address] AST [Catalytic activity/Vol] 20 U/L Normal <=31 [facility] Comment on above: Result Comment: Hemo lysis present, Results??could be affected.?? Performed By: #### L 500.4050, L100.0100, L501.2450 ####[facility] [address] [place], [address] Bilirubin [Mass/Vol] 0.98 mg/dL Normal 0.00-1.30 [facility] Comment on above: Performed By: #### L 500.4050, L100.0100, L501.2450 ####[facility] [address] [place], [address] BUN/CRE 17.6 RATIO Normal 10-20 [facility] Comment on above: Performed By: #### L 500.4050, L100.0100, L501.2450 ####[facility] [address] [place], [address] Calcium [Mass/Vol] 9.9 mg/dL Normal 7.6-11.0 [facility] Comment on above: Performed By: #### L 500.4050, L100.0100, L501.2450 ####[facility] [address] [place], [address] Chloride [Moles/Vol] 97 mmol/L Low 98-108 [facility] [facility] Comment on above: Performed By: #### L 500.4050, L100.0100, L501.2450 ####[facility] [address] [place], [address] CO2 [Moles/Vol] 18.2 mmol/L Low 21.0-32.0 [facility] Comment on above: Performed By: #### L 500.4050, L100.0100, L501.2450 ####[facility] [address] [place], [address] Creatinine [Mass/Vol] 0.84 mg/dL Normal 0.70-1.20 [facility] Comment on above: Performed By: #### L 500.4050, L100.0100, L501.2450 ####[facility] [address] [place], [address] ECRCL 102.34 ml/min Normal 50-250 [facility] Comment on above: Performed By: #### L 500.4050, L100.0100, L501.2450 ####[facility] [address] [place], [address] GAP 18 High 5-15 [facility] Comment on above: Performed By: #### L 500.4050, L100.0100, L501.2450 ####[facility] [address] [place], [address] GFR/1.73 sq M.predicted among non-blacks MDRD (S/P/Bld) [Vol rate/Area] 96 mL/min/{1.73_m2} Normal >60 [facility] Comment on above: Result Comment: mL/m in/1.73m2 CKD-EPI Creatinine Equation (2020) Performed By: #### L 500.4050, L100.0100, L501.2450 ####[facility] [address] [place], [address] Globulin (S) [Mass/Vol] 3.3 g/dL Normal 2.2-4.2 [facility] Comment on above: Performed By: #### L 500.4050, L100.0100, L501.2450 ####[facility] [address] [place], [address] Glucose [Mass/Vol] 375 mg/dL High 70-99 [facility] Comment on above: Performed By: #### L 500.4050, L100.0100, L501.2450 ####[facility] [address] [place], [address] Potassium [Moles/Vol] 4.4 mmol/L Normal 3.3-5.1 [facility] Comment on above: Result Comment: Hemo lysis present, Results??could be affected.?? Performed By: #### L 500.4050, L100.0100, L501.2450 ####[facility] [address] [place], [address] Sodium [Moles/Vol] 133 mmol/L Normal 133-145 [facility] Comment on above: Performed By: #### L 500.4050, L100.0100, L501.2450 ####[facility] [address] [place], [address] T PROT 7.9 g/dL Normal 5.9-8.4 [facility] Comment on above: Performed By: #### L 500.4050, L100.0100, L501.2450 ####[facility] [address] [place], [address] Urea nitrogen [Mass/Vol] 15 mg/dL Normal 4-19 [facility] Comment on above: Performed By: #### L 500.4050, L100.0100, L501.2450 ####[facility] [address] [place], [address] Emergency Department Summary on 11-03-2024 Emergency Department Summary Normal [facility] Lipaseon 11-03-2024 Lipase [Catalytic activity/Vol] 14 U/L Normal 13-75 [facility] Comment on above: Result Comment: Sulma schmitz note:LIPASE revised reference range effective 22.New Lipase methodology. Expected to produce lower valuesthan the previous assay method.NEW Reference Range: 13 - 75 U/L Performed By: #### L 500.4050, L100.0100, L501.2450 ####[facility] [address] [place], [address] Urinalysis, Completeon 11-03 BACTERIA RARE Normal None Seen [facility] Comment on above: Order Comment: CLEAN CATCH Performed By: #### L 400.0001 ####[facility] [address] [place], [address] EPI,SQUAMOUS 0-5 SEEN Normal 5-10 [facility] Comment on above: Order Comment: CLEAN CATCH Performed By: #### L 400.0001 ####[facility] [address] [place], [address] RBC 0 SEEN Normal 0-5 [facility] Comment on above: Order Comment: CLEAN CATCH Performed By: #### L 400.0001 ####[facility] [address] [place], [address] WBC 0-5 SEEN Normal 0-5 [facility] Comment on above: Order Comment: CLEAN CATCH Performed By: #### L 400.0001 ####[facility] [address] [place], [address] BILIRUBIN URINE Negative Normal Negative [facility] Comment on above: Order Comment: CLEAN CATCH Performed By: #### L 400.0001 ####[facility] [address] [place], [address] Clarity (U) Turbid Normal Clear [facility] Comment on above: Order Comment: CLEAN CATCH Performed By: #### L 400.0001 ####[facility] [address] [place], [address] Color (U) Straw Normal Yellow [facility] Comment on above: Order Comment: CLEAN CATCH Performed By: #### L 400.0001 ####[facility] [address] [place], [address] GLUCOSE, UR 1000 mg/dl Abnormal Normal [facility] Comment on above: Order Comment: CLEAN CATCH Performed By: #### L 400.0001 ####[facility] [address] [place], [address] KETONE UR 50 mg/dl Abnormal Negative [facility] Comment on above: Order Comment: CLEAN CATCH Performed By: #### L 400.0001 ####[facility] [address] [place], [address] LEUK ESTERASE Negative Normal Negative [facility] Comment on above: Order Comment: CLEAN CATCH Performed By: #### L 400.0001 ####[facility] [address] [place], [address] Nitrite Ql (U) Negative Normal Negative [facility] Comment on above: Order Comment: CLEAN CATCH Performed By: #### L 400.0001 ####[facility] [address] [place], [address] OCCULT BLOOD-UR Negative Normal Negative [facility] Comment on above: Order Comment: CLEAN CATCH Performed By: #### L 400.0001 ####[facility] [address] [place], [address] pH UR 6.0 Normal 5.0 - 8.0 [facility] Comment on above: Order Comment: CLEAN CATCH Performed By: #### L 400.0001 ####[facility] [address] [place], [address] PROT DIPSTX Negative Normal Negative [facility] Comment on above: Order Comment: CLEAN CATCH Performed By: #### L 400.0001 ####[facility] [address] [place], [address] SP.GR. DIPSTX 1.015 Normal 1.002-1.030 [facility] Comment on above: Order Comment: CLEAN CATCH Performed By: #### L 400.0001 ####[facility] [address] [place], [address] UROBILI Normal Normal Normal [facility] Comment on above: Order Comment: CLEAN CATCH Performed By: #### L 400.0001 ####[facility] [address] [place], [address] Mucus Ql (Urine sed) 0 SEEN Normal [facility] Comment on above: Order Comment: CLEAN CATCH Performed By: #### L 400.0001 ####[facility] [address] [place], [address] Basic Metabolic Profile (BMP )on 10-27-2024 BUN Normal 7-18 [facility] Comment on above: Result Comment: Canc elled via OM: Order cancelled - Patient discharged Performed By: #### L 100.0100, L500.2500 ####[facility] [address] [place], [address] BUN/CRE Normal 10-20 [facility] Comment on above: Result Comment: Canc elled via OM: Order cancelled - Patient discharged Performed By: #### L 100.0100, L500.2500 ####[facility] [address] [place], [address] CA,Total Normal 8.5-10.1 [facility] Comment on above: Result Comment: Canc elled via OM: Order cancelled - Patient discharged Performed By: #### L 100.0100, L500.2500 ####[facility] [address] [place], [address] CL Normal 98-107 [facility] Comment on above: Result Comment: Canc elled via OM: Order cancelled - Patient discharged Performed By: #### L 100.0100, L500.2500 ####[facility] [address] [place], [address] CO2 Normal 21.0-32.0 [facility] Comment on above: Result Comment: Canc elled via OM: Order cancelled - Patient discharged Performed By: #### L 100.0100, L500.2500 ####[facility] [address] [place], [address] CREAT,SERUM Normal 0.55-1.02 [facility] Comment on above: Result Comment: Canc elled via OM: Order cancelled - Patient discharged Performed By: #### L 100.0100, L500.2500 ####[facility] [address] [place], [address] EST GFR Normal >60 [facility] Comment on above: Result Comment: Canc elled via OM: Order cancelled - Patient discharged Performed By: #### L 100.0100, L500.2500 ####[facility] [address] [place], [address] EST GFR - AA Normal >60 [facility] Comment on above: Result Comment: Canc elled via OM: Order cancelled - Patient discharged Performed By: #### L 100.0100, L500.2500 ####[facility] [address] [place], [address] GAP Normal 5-15 [facility] Comment on above: Result Comment: Canc elled via OM: Order cancelled - Patient discharged Performed By: #### L 100.0100, L500.2500 ####[facility] [address] [place], [address] GLU Normal 74-106 [facility] Comment on above: Result Comment: Canc elled via OM: Order cancelled - Patient discharged Performed By: #### L 100.0100, L500.2500 ####[facility] [address] [place], [address] Potassium Normal 3.5-5.1 [facility] Comment on above: Result Comment: Canc elled via OM: Order cancelled - Patient discharged Performed By: #### L 100.0100, L500.2500 ####[facility] [address] [place], [address] Basic Metabolic Profile (BMP) Normal 136-145 [facility] Comment on above: Result Comment: Canc elled via OM: Order cancelled - Patient discharged Performed By: #### L 100.0100, L500.2500 ####[facility] [address] [place], [address] CBC W/Diff, Automatedon 03-0 Absolute Neut Normal 2.0-7.7 [facility] Comment on above: Result Comment: Canc elled via OM: Order cancelled - Patient discharged Performed By: #### L 100.0100, L500.2500 ####[facility] [address] [place], [address] HCT Normal 37-47 [facility] Comment on above: Result Comment: Canc elled via OM: Order cancelled - Patient discharged Performed By: #### L 100.0100, L500.2500 ####[facility] [address] [place], [address] HGB Normal 12.0-15.0 [facility] Comment on above: Result Comment: Canc elled via OM: Order cancelled - Patient discharged Performed By: #### L 100.0100, L500.2500 ####[facility] [address] [place], [address] MCH Normal 27.0-32.0 [facility] Comment on above: Result Comment: Canc elled via OM: Order cancelled - Patient discharged Performed By: #### L 100.0100, L500.2500 ####[facility] [address] [place], [address] MCHC Normal 32-36 [facility] Comment on above: Result Comment: Canc elled via OM: Order cancelled - Patient discharged Performed By: #### L 100.0100, L500.2500 ####[facility] [address] [place], [address] MCV Normal 81-99 [facility] Comment on above: Result Comment: Canc elled via OM: Order cancelled - Patient discharged Performed By: #### L 100.0100, L500.2500 ####[facility] [address] [place], [address] NEUT% Normal 47-70 [facility] Comment on above: Result Comment: Canc elled via OM: Order cancelled - Patient discharged Performed By: #### L 100.0100, L500.2500 ####[facility] [address] [place], [address] PLT Normal 150-450 [facility] Comment on above: Result Comment: Canc elled via OM: Order cancelled - Patient discharged Performed By: #### L 100.0100, L500.2500 ####[facility] [address] [place], [address] RBC Normal 4.2-5.4 [facility] Comment on above: Result Comment: Canc elled via OM: Order cancelled - Patient discharged Performed By: #### L 100.0100, L500.2500 ####[facility] [address] [place], [address] RDW CV Normal 11.6-14.6 [facility] Comment on above: Result Comment: Canc elled via OM: Order cancelled - Patient discharged Performed By: #### L 100.0100, L500.2500 ####[facility] [address] [place], [address] RDW SD Normal 35.1-43.9 [facility] Comment on above: Result Comment: Canc elled via OM: Order cancelled - Patient discharged Performed By: #### L 100.0100, L500.2500 ####[facility] [address] [place], [address] WBC Normal 4.4-11.0 [facility] Comment on above: Result Comment: Canc elled via OM: Order cancelled - Patient discharged Performed By: #### L 100.0100, L500.2500 ####[facility] [address] [place], [address] Basic Metabolic Profile (BMP )on 10-26-2024 BUN Normal 7-18 [facility] Comment on above: Result Comment: Canc elled via OM: Order cancelled - Patient discharged Performed By: #### L 500.2500, L100.0100 ####[facility] [address] [place], [address] BUN/CRE Normal 10-20 [facility] Comment on above: Result Comment: Canc elled via OM: Order cancelled - Patient discharged Performed By: #### L 500.2500, L100.0100 ####[facility] [address] [place], [address] CA,Total Normal 8.5-10.1 [facility] Comment on above: Result Comment: Canc elled via OM: Order cancelled - Patient discharged Performed By: #### L 500.2500, L100.0100 ####[facility] [address] [place], [address] CL Normal 98-107 [facility] Comment on above: Result Comment: Canc elled via OM: Order cancelled - Patient discharged Performed By: #### L 500.2500, L100.0100 ####[facility] [address] [place], [address] CO2 Normal 21.0-32.0 [facility] Comment on above: Result Comment: Canc elled via OM: Order cancelled - Patient discharged Performed By: #### L 500.2500, L100.0100 ####[facility] [address] [place], [address] CREAT,SERUM Normal 0.55-1.02 [facility] Comment on above: Result Comment: Canc elled via OM: Order cancelled - Patient discharged Performed By: #### L 500.2500, L100.0100 ####[facility] [address] [place], [address] EST GFR Normal >60 [facility] Comment on above: Result Comment: Canc elled via OM: Order cancelled - Patient discharged Performed By: #### L 500.2500, L100.0100 ####[facility] [address] [place], [address] EST GFR - AA Normal >60 [facility] Comment on above: Result Comment: Canc elled via OM: Order cancelled - Patient discharged Performed By: #### L 500.2500, L100.0100 ####[facility] [address] [place], [address] GAP Normal 5-15 [facility] Comment on above: Result Comment: Canc elled via OM: Order cancelled - Patient discharged Performed By: #### L 500.2500, L100.0100 ####[facility] [address] [place], [address] GLU Normal 74-106 [facility] Comment on above: Result Comment: Canc elled via OM: Order cancelled - Patient discharged Performed By: #### L 500.2500, L100.0100 ####[facility] [address] [place], [address] Potassium Normal 3.5-5.1 [facility] Comment on above: Result Comment: Canc elled via OM: Order cancelled - Patient discharged Performed By: #### L 500.2500, L100.0100 ####[facility] [address] [place], [address] Basic Metabolic Profile (BMP) Normal 136-145 [facility] Comment on above: Result Comment: Canc elled via OM: Order cancelled - Patient discharged Performed By: #### L 500.2500, L100.0100 ####[facility] [address] [place], [address] CBC W/Diff, Automatedon 03-0 Absolute Neut Normal 2.0-7.7 [facility] Comment on above: Result Comment: Canc elled via OM: Order cancelled - Patient discharged Performed By: #### L 500.2500, L100.0100 ####[facility] [address] [place], [address] HCT Normal 37-47 [facility] Comment on above: Result Comment: Canc elled via OM: Order cancelled - Patient discharged Performed By: #### L 500.2500, L100.0100 ####[facility] [address] [place], [address] HGB Normal 12.0-15.0 [facility] Comment on above: Result Comment: Canc elled via OM: Order cancelled - Patient discharged Performed By: #### L 500.2500, L100.0100 ####[facility] [address] [place], [address] MCH Normal 27.0-32.0 [facility] Comment on above: Result Comment: Canc elled via OM: Order cancelled - Patient discharged Performed By: #### L 500.2500, L100.0100 ####[facility] [address] [place], [address] MCHC Normal 32-36 [facility] Comment on above: Result Comment: Canc elled via OM: Order cancelled - Patient discharged Performed By: #### L 500.2500, L100.0100 ####[facility] [address] [place], [address] MCV Normal 81-99 [facility] Comment on above: Result Comment: Canc elled via OM: Order cancelled - Patient discharged Performed By: #### L 500.2500, L100.0100 ####[facility] [address] [place], [address] NEUT% Normal 47-70 [facility] Comment on above: Result Comment: Canc elled via OM: Order cancelled - Patient discharged Performed By: #### L 500.2500, L100.0100 ####[facility] [address] [place], [address] PLT Normal 150-450 [facility] Comment on above: Result Comment: Canc elled via OM: Order cancelled - Patient discharged Performed By: #### L 500.2500, L100.0100 ####[facility] [address] [place], [address] RBC Normal 4.2-5.4 [facility] Comment on above: Result Comment: Canc elled via OM: Order cancelled - Patient discharged Performed By: #### L 500.2500, L100.0100 ####[facility] [address] [place], [address] RDW CV Normal 11.6-14.6 [facility] Comment on above: Result Comment: Canc elled via OM: Order cancelled - Patient discharged Performed By: #### L 500.2500, L100.0100 ####[facility] [address] [place], [address] RDW SD Normal 35.1-43.9 [facility] Comment on above: Result Comment: Canc elled via OM: Order cancelled - Patient discharged Performed By: #### L 500.2500, L100.0100 ####[facility] [address] [place], [address] WBC Normal 4.4-11.0 [facility] Comment on above: Result Comment: Canc elled via OM: Order cancelled - Patient discharged Performed By: #### L 500.2500, L100.0100 ####[facility] [address] [place], [address] Basic Metabolic Profile (BMP )on 10-25-2024 BUN Normal 7-18 [facility] Comment on above: Result Comment: Canc elled via OM: Order cancelled - Patient discharged Performed By: #### L 500.2500, L100.0100 ####[facility] [address] [place], [address] BUN/CRE Normal 10-20 [facility] Comment on above: Result Comment: Canc elled via OM: Order cancelled - Patient discharged Performed By: #### L 500.2500, L100.0100 ####[facility] [address] [place], [address] CA,Total Normal 8.5-10.1 [facility] Comment on above: Result Comment: Canc elled via OM: Order cancelled - Patient discharged Performed By: #### L 500.2500, L100.0100 ####[facility] [address] [place], [address] CL Normal 98-107 [facility] Comment on above: Result Comment: Canc elled via OM: Order cancelled - Patient discharged Performed By: #### L 500.2500, L100.0100 ####[facility] [address] [place], [address] CO2 Normal 21.0-32.0 [facility] Comment on above: Result Comment: Canc elled via OM: Order cancelled - Patient discharged Performed By: #### L 500.2500, L100.0100 ####[facility] [address] [place], [address] CREAT,SERUM Normal 0.55-1.02 [facility] Comment on above: Result Comment: Canc elled via OM: Order cancelled - Patient discharged Performed By: #### L 500.2500, L100.0100 ####[facility] [address] [place], [address] EST GFR Normal >60 [facility] Comment on above: Result Comment: Canc elled via OM: Order cancelled - Patient discharged Performed By: #### L 500.2500, L100.0100 ####[facility] [address] [place], [address] EST GFR - AA Normal >60 [facility] Comment on above: Result Comment: Canc elled via OM: Order cancelled - Patient discharged Performed By: #### L 500.2500, L100.0100 ####[facility] [address] [place], [address] GAP Normal 5-15 [facility] Comment on above: Result Comment: Canc elled via OM: Order cancelled - Patient discharged Performed By: #### L 500.2500, L100.0100 ####[facility] [address] [place], [address] GLU Normal 74-106 [facility] Comment on above: Result Comment: Canc elled via OM: Order cancelled - Patient discharged Performed By: #### L 500.2500, L100.0100 ####[facility] [address] [place], [address] Potassium Normal 3.5-5.1 [facility] Comment on above: Result Comment: Canc elled via OM: Order cancelled - Patient discharged Performed By: #### L 500.2500, L100.0100 ####[facility] [address] [place], [address] Basic Metabolic Profile (BMP) Normal 136-145 [facility] Comment on above: Result Comment: Canc elled via OM: Order cancelled - Patient discharged Performed By: #### L 500.2500, L100.0100 ####[facility] [address] [place], [address] CBC W/Diff, Automatedon 02- Absolute Neut Normal 2.0-7.7 [facility] Comment on above: Result Comment: Canc elled via OM: Order cancelled - Patient discharged Performed By: #### L 500.2500, L100.0100 ####[facility] [address] [place], [address] HCT Normal 37-47 [facility] Comment on above: Result Comment: Canc elled via OM: Order cancelled - Patient discharged Performed By: #### L 500.2500, L100.0100 ####[facility] [address] [place], [address] HGB Normal 12.0-15.0 [facility] Comment on above: Result Comment: Canc elled via OM: Order cancelled - Patient discharged Performed By: #### L 500.2500, L100.0100 ####[facility] [address] [place], [address] MCH Normal 27.0-32.0 [facility] Comment on above: Result Comment: Canc elled via OM: Order cancelled - Patient discharged Performed By: #### L 500.2500, L100.0100 ####[facility] [address] [place], [address] MCHC Normal 32-36 [facility] Comment on above: Result Comment: Canc elled via OM: Order cancelled - Patient discharged Performed By: #### L 500.2500, L100.0100 ####[facility] [address] [place], [address] MCV Normal 81-99 [facility] Comment on above: Result Comment: Canc elled via OM: Order cancelled - Patient discharged Performed By: #### L 500.2500, L100.0100 ####[facility] [address] [place], [address] NEUT% Normal 47-70 [facility] Comment on above: Result Comment: Canc elled via OM: Order cancelled - Patient discharged Performed By: #### L 500.2500, L100.0100 ####[facility] [address] [place], [address] PLT Normal 150-450 [facility] Comment on above: Result Comment: Canc elled via OM: Order cancelled - Patient discharged Performed By: #### L 500.2500, L100.0100 ####[facility] [address] [place], [address] RBC Normal 4.2-5.4 [facility] Comment on above: Result Comment: Canc elled via OM: Order cancelled - Patient discharged Performed By: #### L 500.2500, L100.0100 ####[facility] [address] [place], [address] RDW CV Normal 11.6-14.6 [facility] Comment on above: Result Comment: Canc elled via OM: Order cancelled - Patient discharged Performed By: #### L 500.2500, L100.0100 ####[facility] [address] [place], [address] RDW SD Normal 35.1-43.9 [facility] Comment on above: Result Comment: Canc elled via OM: Order cancelled - Patient discharged Performed By: #### L 500.2500, L100.0100 ####[facility] [address] [place], [address] WBC Normal 4.4-11.0 [facility] Comment on above: Result Comment: Canc elled via OM: Order cancelled - Patient discharged Performed By: #### L 500.2500, L100.0100 ####[facility] [address] [place], [address] Basic Metabolic Profile (BMP )on 10-24-2024 BUN Normal 7-18 [facility] Comment on above: Result Comment: Canc elled via OM: Order cancelled - Patient discharged Performed By: #### L 100.0100, L500.2500 ####[facility] [address] [place], [address] BUN/CRE Normal 10-20 [facility] Comment on above: Result Comment: Canc elled via OM: Order cancelled - Patient discharged Performed By: #### L 100.0100, L500.2500 ####[facility] [address] [place], [address] CA,Total Normal 8.5-10.1 [facility] Comment on above: Result Comment: Canc elled via OM: Order cancelled - Patient discharged Performed By: #### L 100.0100, L500.2500 ####[facility] [address] [place], [address] CL Normal 98-107 [facility] Comment on above: Result Comment: Canc elled via OM: Order cancelled - Patient discharged Performed By: #### L 100.0100, L500.2500 ####[facility] [address] [place], [address] CO2 Normal 21.0-32.0 [facility] Comment on above: Result Comment: Canc elled via OM: Order cancelled - Patient discharged Performed By: #### L 100.0100, L500.2500 ####[facility] [address] [place], [address] CREAT,SERUM Normal 0.55-1.02 [facility] Comment on above: Result Comment: Canc elled via OM: Order cancelled - Patient discharged Performed By: #### L 100.0100, L500.2500 ####[facility] [address] [place], [address] EST GFR Normal >60 [facility] Comment on above: Result Comment: Canc elled via OM: Order cancelled - Patient discharged Performed By: #### L 100.0100, L500.2500 ####[facility] [address] [place], [address] EST GFR - AA Normal >60 [facility] Comment on above: Result Comment: Canc elled via OM: Order cancelled - Patient discharged Performed By: #### L 100.0100, L500.2500 ####[facility] [address] [place], [address] GAP Normal 5-15 [facility] Comment on above: Result Comment: Canc elled via OM: Order cancelled - Patient discharged Performed By: #### L 100.0100, L500.2500 ####[facility] [address] [place], [address] GLU Normal 74-106 [facility] Comment on above: Result Comment: Canc elled via OM: Order cancelled - Patient discharged Performed By: #### L 100.0100, L500.2500 ####[facility] [address] [place], [address] Potassium Normal 3.5-5.1 [facility] Comment on above: Result Comment: Canc elled via OM: Order cancelled - Patient discharged Performed By: #### L 100.0100, L500.2500 ####[facility] [address] [place], [address] Basic Metabolic Profile (BMP) Normal 136-145 [facility] Comment on above: Result Comment: Canc elled via OM: Order cancelled - Patient discharged Performed By: #### L 100.0100, L500.2500 ####[facility] [address] [place], [address] CBC W/Diff, Automatedon 02-2 Absolute Neut Normal 2.0-7.7 [facility] Comment on above: Result Comment: Canc elled via OM: Order cancelled - Patient discharged Performed By: #### L 100.0100, L500.2500 ####[facility] [address] [place], [address] HCT Normal 37-47 [facility] Comment on above: Result Comment: Canc elled via OM: Order cancelled - Patient discharged Performed By: #### L 100.0100, L500.2500 ####[facility] [address] [place], [address] HGB Normal 12.0-15.0 [facility] Comment on above: Result Comment: Canc elled via OM: Order cancelled - Patient discharged Performed By: #### L 100.0100, L500.2500 ####[facility] [address] [place], [address] MCH Normal 27.0-32.0 [facility] Comment on above: Result Comment: Canc elled via OM: Order cancelled - Patient discharged Performed By: #### L 100.0100, L500.2500 ####[facility] [address] [place], [address] MCHC Normal 32-36 [facility] Comment on above: Result Comment: Canc elled via OM: Order cancelled - Patient discharged Performed By: #### L 100.0100, L500.2500 ####[facility] [address] [place], [address] MCV Normal 81-99 [facility] Comment on above: Result Comment: Canc elled via OM: Order cancelled - Patient discharged Performed By: #### L 100.0100, L500.2500 ####[facility] [address] [place], [address] NEUT% Normal 47-70 [facility] Comment on above: Result Comment: Canc elled via OM: Order cancelled - Patient discharged Performed By: #### L 100.0100, L500.2500 ####[facility] [address] [place], [address] PLT Normal 150-450 [facility] Comment on above: Result Comment: Canc elled via OM: Order cancelled - Patient discharged Performed By: #### L 100.0100, L500.2500 ####[facility] [address] [place], [address] RBC Normal 4.2-5.4 [facility] Comment on above: Result Comment: Canc elled via OM: Order cancelled - Patient discharged Performed By: #### L 100.0100, L500.2500 ####[facility] [address] [place], [address] RDW CV Normal 11.6-14.6 [facility] Comment on above: Result Comment: Canc elled via OM: Order cancelled - Patient discharged Performed By: #### L 100.0100, L500.2500 ####[facility] [address] [place], [address] RDW SD Normal 35.1-43.9 [facility] Comment on above: Result Comment: Canc elled via OM: Order cancelled - Patient discharged Performed By: #### L 100.0100, L500.2500 ####[facility] [address] [place], [address] WBC Normal 4.4-11.0 [facility] Comment on above: Result Comment: Canc elled via OM: Order cancelled - Patient discharged Performed By: #### L 100.0100, L500.2500 ####[facility] [address] [place], [address] Basic Metabolic Profile (BMP )on 10-23-2024 BUN Normal 7-18 [facility] Comment on above: Result Comment: Canc elled via OM: Order cancelled - Patient discharged Performed By: #### L 100.0100, L500.2500 ####[facility] [address] [place], [address] BUN/CRE Normal 10-20 [facility] Comment on above: Result Comment: Canc elled via OM: Order cancelled - Patient discharged Performed By: #### L 100.0100, L500.2500 ####[facility] [address] [place], [address] CA,Total Normal 8.5-10.1 [facility] Comment on above: Result Comment: Canc elled via OM: Order cancelled - Patient discharged Performed By: #### L 100.0100, L500.2500 ####[facility] [address] [place], [address] CL Normal 98-107 [facility] Comment on above: Result Comment: Canc elled via OM: Order cancelled - Patient discharged Performed By: #### L 100.0100, L500.2500 ####[facility] [address] [place], [address] CO2 Normal 21.0-32.0 [facility] Comment on above: Result Comment: Canc elled via OM: Order cancelled - Patient discharged Performed By: #### L 100.0100, L500.2500 ####[facility] [address] [place], [address] CREAT,SERUM Normal 0.55-1.02 [facility] Comment on above: Result Comment: Canc elled via OM: Order cancelled - Patient discharged Performed By: #### L 100.0100, L500.2500 ####[facility] [address] [place], [address] EST GFR Normal >60 [facility] Comment on above: Result Comment: Canc elled via OM: Order cancelled - Patient discharged Performed By: #### L 100.0100, L500.2500 ####[facility] [address] [place], [address] EST GFR - AA Normal >60 [facility] Comment on above: Result Comment: Canc elled via OM: Order cancelled - Patient discharged Performed By: #### L 100.0100, L500.2500 ####[facility] [address] [place], [address] GAP Normal 5-15 [facility] Comment on above: Result Comment: Canc elled via OM: Order cancelled - Patient discharged Performed By: #### L 100.0100, L500.2500 ####[facility] [address] [place], [address] GLU Normal 74-106 [facility] Comment on above: Result Comment: Canc elled via OM: Order cancelled - Patient discharged Performed By: #### L 100.0100, L500.2500 ####[facility] [address] [place], [address] Potassium Normal 3.5-5.1 [facility] Comment on above: Result Comment: Canc elled via OM: Order cancelled - Patient discharged Performed By: #### L 100.0100, L500.2500 ####[facility] [address] [place], [address] Basic Metabolic Profile (BMP) Normal 136-145 [facility] Comment on above: Result Comment: Canc elled via OM: Order cancelled - Patient discharged Performed By: #### L 100.0100, L500.2500 ####[facility] [address] [place], [address] CBC W/Diff, Automatedon 02-2 Absolute Neut Normal 2.0-7.7 [facility] Comment on above: Result Comment: Canc elled via OM: Order cancelled - Patient discharged Performed By: #### L 100.0100, L500.2500 ####[facility] [address] [place], [address] HCT Normal 37-47 [facility] Comment on above: Result Comment: Canc elled via OM: Order cancelled - Patient discharged Performed By: #### L 100.0100, L500.2500 ####[facility] [address] [place], [address] HGB Normal 12.0-15.0 [facility] Comment on above: Result Comment: Canc elled via OM: Order cancelled - Patient discharged Performed By: #### L 100.0100, L500.2500 ####[facility] [address] [place], [address] MCH Normal 27.0-32.0 [facility] Comment on above: Result Comment: Canc elled via OM: Order cancelled - Patient discharged Performed By: #### L 100.0100, L500.2500 ####[facility] [address] [place], [address] MCHC Normal 32-36 [facility] Comment on above: Result Comment: Canc elled via OM: Order cancelled - Patient discharged Performed By: #### L 100.0100, L500.2500 ####[facility] [address] [place], [address] MCV Normal 81-99 [facility] Comment on above: Result Comment: Canc elled via OM: Order cancelled - Patient discharged Performed By: #### L 100.0100, L500.2500 ####[facility] [address] [place], [address] NEUT% Normal 47-70 [facility] Comment on above: Result Comment: Canc elled via OM: Order cancelled - Patient discharged Performed By: #### L 100.0100, L500.2500 ####[facility] [address] [place], [address] PLT Normal 150-450 [facility] Comment on above: Result Comment: Canc elled via OM: Order cancelled - Patient discharged Performed By: #### L 100.0100, L500.2500 ####[facility] [address] [place], [address] RBC Normal 4.2-5.4 [facility] Comment on above: Result Comment: Canc elled via OM: Order cancelled - Patient discharged Performed By: #### L 100.0100, L500.2500 ####[facility] [address] [place], [address] RDW CV Normal 11.6-14.6 [facility] Comment on above: Result Comment: Canc elled via OM: Order cancelled - Patient discharged Performed By: #### L 100.0100, L500.2500 ####[facility] [address] [place], [address] RDW SD Normal 35.1-43.9 [facility] Comment on above: Result Comment: Canc elled via OM: Order cancelled - Patient discharged Performed By: #### L 100.0100, L500.2500 ####[facility] [address] [place], [address] WBC Normal 4.4-11.0 [facility] Comment on above: Result Comment: Canc elled via OM: Order cancelled - Patient discharged Performed By: #### L 100.0100, L500.2500 ####[facility] [address] [place], [address] Basic Metabolic Profile (BMP )on 10-22-2024 BUN Normal 7-18 [facility] Comment on above: Result Comment: Canc elled via OM: Order cancelled - Patient discharged Performed By: #### L 100.0100, L500.2500 ####[facility] [address] [place], [address] BUN/CRE Normal 10-20 [facility] Comment on above: Result Comment: Canc elled via OM: Order cancelled - Patient discharged Performed By: #### L 100.0100, L500.2500 ####[facility] [address] [place], [address] CA,Total Normal 8.5-10.1 [facility] Comment on above: Result Comment: Canc elled via OM: Order cancelled - Patient discharged Performed By: #### L 100.0100, L500.2500 ####[facility] [address] [facility] [address] CL Normal 98-107 [facility] Comment on above: Result Comment: Canc elled via OM: Order cancelled - Patient discharged Performed By: #### L 100.0100, L500.2500 ####[facility] [address] [facility] [address] CO2 Normal 21.0-32.0 [facility] Comment on above: Result Comment: Canc elled via OM: Order cancelled - Patient discharged Performed By: #### L 100.0100, L500.2500 ####[facility] [address] [place], [address] CREAT,SERUM Normal 0.55-1.02 [facility] Comment on above: Result Comment: Canc elled via OM: Order cancelled - Patient discharged Performed By: #### L 100.0100, L500.2500 ####[facility] [address] [facility] [address] EST GFR Normal >60 [facility] Comment on above: Result Comment: Canc elled via OM: Order cancelled - Patient discharged Performed By: #### L 100.0100, L500.2500 ####[facility] [address] [place], [address] EST GFR - AA Normal >60 [facility] Comment on above: Result Comment: Canc elled via OM: Order cancelled - Patient discharged Performed By: #### L 100.0100, L500.2500 ####[facility] [address] [place], [address] GAP Normal 5-15 [facility] Comment on above: Result Comment: Canc elled via OM: Order cancelled - Patient discharged Performed By: #### L 100.0100, L500.2500 ####[facility] [address] [place], [address] GLU Normal 74-106 [facility] Comment on above: Result Comment: Canc elled via OM: Order cancelled - Patient discharged Performed By: #### L 100.0100, L500.2500 ####[facility] [address] [place], [address] Potassium Normal 3.5-5.1 [facility] Comment on above: Result Comment: Canc elled via OM: Order cancelled - Patient discharged Performed By: #### L 100.0100, L500.2500 ####[facility] [address] [place], [address] Basic Metabolic Profile (BMP) Normal 136-145 [facility] Comment on above: Result Comment: Canc elled via OM: Order cancelled - Patient discharged Performed By: #### L 100.0100, L500.2500 ####[facility] [address] [place], [address] CBC W/Diff, Automatedon 02-2 Absolute Neut Normal 2.0-7.7 [facility] Comment on above: Result Comment: Canc elled via OM: Order cancelled - Patient discharged Performed By: #### L 100.0100, L500.2500 ####[facility] [address] [place], [address] HCT Normal 37-47 [facility] Comment on above: Result Comment: Canc elled via OM: Order cancelled - Patient discharged Performed By: #### L 100.0100, L500.2500 ####[facility] [address] [place], [address] HGB Normal 12.0-15.0 [facility] Comment on above: Result Comment: Canc elled via OM: Order cancelled - Patient discharged Performed By: #### L 100.0100, L500.2500 ####[facility] [address] [place], [address] MCH Normal 27.0-32.0 [facility] Comment on above: Result Comment: Canc elled via OM: Order cancelled - Patient discharged Performed By: #### L 100.0100, L500.2500 ####[facility] [address] [place], [address] MCHC Normal 32-36 [facility] Comment on above: Result Comment: Canc elled via OM: Order cancelled - Patient discharged Performed By: #### L 100.0100, L500.2500 ####[facility] [address] [place], [address] MCV Normal 81-99 [facility] Comment on above: Result Comment: Canc elled via OM: Order cancelled - Patient discharged Performed By: #### L 100.0100, L500.2500 ####[facility] [address] [place], [address] NEUT% Normal 47-70 [facility] Comment on above: Result Comment: Canc elled via OM: Order cancelled - Patient discharged Performed By: #### L 100.0100, L500.2500 ####[facility] [address] [place], [address] PLT Normal 150-450 [facility] Comment on above: Result Comment: Canc elled via OM: Order cancelled - Patient discharged Performed By: #### L 100.0100, L500.2500 ####[facility] [address] [place], [address] RBC Normal 4.2-5.4 [facility] Comment on above: Result Comment: Canc elled via OM: Order cancelled - Patient discharged Performed By: #### L 100.0100, L500.2500 ####[facility] [address] [place], [address] RDW CV Normal 11.6-14.6 [facility] Comment on above: Result Comment: Canc elled via OM: Order cancelled - Patient discharged Performed By: #### L 100.0100, L500.2500 ####[facility] [address] [place], [address] RDW SD Normal 35.1-43.9 [facility] Comment on above: Result Comment: Canc elled via OM: Order cancelled - Patient discharged Performed By: #### L 100.0100, L500.2500 ####[facility] [address] [place], [address] WBC Normal 4.4-11.0 [facility] Comment on above: Result Comment: Canc elled via OM: Order cancelled - Patient discharged Performed By: #### L 100.0100, L500.2500 ####[facility] [address] [place], [address] Basic Metabolic Profile (BMP )on 10-21-2024 BUN/CRE 17.1 RATIO Normal 10-20 [facility] Comment on above: Performed By: #### L 100.0100, L500.2500 ####[facility] [address] [place], [address] CA,Total 9.4 mg/dL Normal 8.5-10.1 [facility] Comment on above: Performed By: #### L 100.0100, L500.2500 ####[facility] [address] [place], [address] Chloride [Moles/Vol] 97 mmol/L Low 98-107 [facility] Comment on above: Performed By: #### L 100.0100, L500.2500 ####[facility] [address] [place], [address] CO2 [Moles/Vol] 16.0 mmol/L Low 21.0-32.0 [facility] Comment on above: Performed By: #### L 100.0100, L500.2500 ####[facility] [address] [place], [address] Creatinine [Mass/Vol] 0.88 mg/dL Normal 0.55-1.02 [facility] Comment on above: Result Comment: The validity of the calculated GFR GFRAA in patients over70 years has not been determined. Clinical correlation isessential. Performed By: #### L 100.0100, L500.2500 ####[facility] [address] [place], [address] ECRCL 97.69 ml/min Normal [facility] Comment on above: Performed By: #### L 100.0100, L500.2500 ####[facility] [address] [place], [address] EST GFR - AA 97 mL/min Normal >60 [facility] Comment on above: Result Comment: Afri can [place] GFR Calc Performed By: #### L 100.0100, L500.2500 ####[facility] [address] [place], [address] GAP 15 Normal 5-15 [facility] Comment on above: Performed By: #### L 100.0100, L500.2500 ####[facility] [address] [place], [address] GFR/1.73 sq M.predicted among non-blacks MDRD (S/P/Bld) [Vol rate/Area] 80 mL/min/{1.73_m2} Normal >60 [facility] Comment on above: Result Comment: Non- GFR Calc Performed By: #### L 100.0100, L500.2500 ####[facility] [address] [place], [address] Glucose [Mass/Vol] 546 mg/dL Invalid Interpretation Code 74-106 [facility] Comment on above: Result Comment: Crit ical Result(s) Called at: 05:07:31 10/21/2024 by:Nan Friedman to [facility]. Results read back by same.Glucose result greater than or equal to 200 mg/dLsuggests DIABETES MELLITUS per A.D.A. criteria. Performed By: #### L 100.0100, L500.2500 ####[facility] [address] [place], [address] Potassium [Moles/Vol] 5.3 mmol/L High 3.5-5.1 [facility] Comment on above: Performed By: #### L 100.0100, L500.2500 ####[facility] [address] [place], [address] Sodium [Moles/Vol] 128 mmol/L Low 136-145 [facility] Comment on above: Performed By: #### L 100.0100, L500.2500 ####[facility] [address] [place], [address] Urea nitrogen [Mass/Vol] 15 mg/dL Normal 7-18 [facility] Comment on above: Performed By: #### L 100.0100, L500.2500 ####[facility] [address] [place], [address] Bedside Glucoseon 10-21-2024 FINGERSTICK GLU 296 mg/dL High -[address] [place] [address] Comment on above: Result Comment: EDGAR ANTOINETTEENT OF PATIENT CARE PER NURSING PROTOCOL Performed By: #### L 501.080 ####[facility] [address] [place], [address] FINGERSTICK GLU 187 mg/dL High [address] [place] [address] Comment on above: Result Comment: EDGAR GEMENT OF PATIENT CARE PER NURSING PROTOCOL Performed By: #### L 501.080 ####[facility] [address] [place], [address] FINGERSTICK GLU 408 mg/dL High 74-106 [facility] Comment on above: Result Comment: EDGAR GEMENT OF PATIENT CARE PER NURSING PROTOCOL Performed By: #### L 501.080 ####[facility] [address] [place], [address] FINGERSTICK GLU 481 mg/dL Invalid Interpretation Code 74-106 [facility] Comment on above: Result Comment: Repe at TestMANAGEMENT OF PATIENT CARE PER NURSING PROTOCOL Performed By: #### L 501.080 ####[facility] [address] [place], [address] CBC W/Diff, Automatedon 09-29 Absolute Lymph 2.01 X10 3/uL Normal 0.83-4.51 [facility] Comment on above: Performed By: #### L 100.0100, L500.2500 ####[facility] [address] [place], [address] Absolute Neut 13.3 X10 3/uL High 2.0-7.7 [facility] Comment on above: Performed By: #### L 100.0100, L500.2500 ####[facility] [address] [place], [address] Basophils/100 WBC (Bld) 0.5 % Normal 0-1 [facility] Comment on above: Performed By: #### L 100.0100, L500.2500 ####[facility] [address] [place], [address] Eosinophils/100 WBC (Bld) 1.8 % Normal 0-5 [facility] Comment on above: Performed By: #### L 100.0100, L500.2500 ####[facility] [address] [place], [address] Erythrocyte distribution width (RBC) [Ratio] 12.9 % Normal 11.6-14.6 [facility] Comment on above: Performed By: #### L 100.0100, L500.2500 ####[facility] [address] [place], [address] Hematocrit (Bld) [Volume fraction] 44.3 % Normal 37-47 [facility] Comment on above: Performed By: #### L 100.0100, L500.2500 ####[facility] [address] [place], [address] Hemoglobin (Bld) [Mass/Vol] 14.3 g/dL Normal 12.0-15.0 [facility] Comment on above: Performed By: #### L 100.0100, L500.2500 ####[facility] [address] [place], [address] IG% 0.800 Normal 0.0-0.9 [facility] Comment on above: Result Comment: IG% - Immature Granulocytes (promyelocytes, myelocytes andmetamyelocytes) > 1% indicates that a LEFT SHIFT is Present. Performed By: #### L 100.0100, L500.2500 ####[facility] [address] [place], [address] Lymphocytes/100 WBC (Bld) 12.2 % Low 19-41 [facility] Comment on above: Performed By: #### L 100.0100, L500.2500 ####[facility] [address] [place], [address] MCH (RBC) [Entitic mass] 28.8 pg Normal 27.0-32.0 [facility] Comment on above: Performed By: #### L 100.0100, L500.2500 ####[facility] [address] [place], [address] MCHC (RBC) [Mass/Vol] 32.3 g/dL Normal 32-36 [facility] Comment on above: Performed By: #### L 100.0100, L500.2500 ####[facility] [address] [place], [address] MCV (RBC) [Entitic vol] 89.1 fL Normal 81-99 [facility] Comment on above: Performed By: #### L 100.0100, L500.2500 ####[facility] [address] [place], [address] Monocytes/100 WBC (Bld) 4.3 % Normal 0-10 [facility] Comment on above: Performed By: #### L 100.0100, L500.2500 ####[facility] [address] [place], [address] Neutrophils/100 WBC (Bld) 80.4 % High 47-70 [facility] Comment on above: Performed By: #### L 100.0100, L500.2500 ####[facility] [address] [place], [address] Nucleated RBC (Bld) [#/Vol] 0 10*3/uL Normal 0-5 [facility] Comment on above: Performed By: #### L 100.0100, L500.2500 ####[facility] [address] [place], [address] Platelet mean volume (Bld) [Entitic vol] 12.6 fL High 6.2-12.0 [facility] Comment on above: Performed By: #### L 100.0100, L500.2500 ####[facility] [address] [place], [address] Platelets (Bld) [#/Vol] 192 10*3/uL Normal 150-450 [facility] Comment on above: Performed By: #### L 100.0100, L500.2500 ####[facility] [address] [place], [address] RBC (Bld) [#/Vol] 4.97 10*6/uL Normal 4.2-5.4 [facility] Comment on above: Performed By: #### L 100.0100, L500.2500 ####[facility] [address] [place], [address] RDW SD 41.7 fl Normal 35.1-43.9 [facility] Comment on above: Performed By: #### L 100.0100, L500.2500 ####[facility] [address] [place], [address] WBC (Bld) [#/Vol] 16.5 10*3/uL High 4.4-11.0 [facility] Comment on above: Performed By: #### L 100.0100, L500.2500 ####[facility] [address] [place], [address] Discharge Instructionon 09-29 Discharge Instruction Normal [facility] Basic Metabolic Profile (BMP )on 10-20-2024 BUN/CRE 13.2 RATIO Normal 10-20 [facility] Comment on above: Performed By: #### L 100.0100, L500.2500 ####[facility] [address] [place], [address] CA,Total 8.8 mg/dL Normal 8.5-10.1 [facility] Comment on above: Performed By: #### L 100.0100, L500.2500 ####[facility] [address] [place], [address] Chloride [Moles/Vol] 104 mmol/L Normal 98-107 [facility] Comment on above: Performed By: #### L 100.0100, L500.2500 ####[facility] [address] [place], [address] CO2 [Moles/Vol] 22.0 mmol/L Normal 21.0-32.0 [facility] Comment on above: Performed By: #### L 100.0100, L500.2500 ####[facility] [address] [place], [address] Creatinine [Mass/Vol] 0.61 mg/dL Normal 0.55-1.02 [facility] Comment on above: Result Comment: The validity of the calculated GFR GFRAA in patients over70 years has not been determined. Clinical correlation isessential. Performed By: #### L 100.0100, L500.2500 ####[facility] [address] [place], [address] ECRCL 140.93 ml/min Normal [facility] Comment on above: Performed By: #### L 100.0100, L500.2500 ####[facility] [address] [place], [address] EST GFR - AA 149 mL/min Normal >60 [facility] Comment on above: Result Comment: Afri can [place] GFR Calc Performed By: #### L 100.0100, L500.2500 ####[facility] [address] [place], [address] GAP 8 Normal 5-15 [facility] Comment on above: Performed By: #### L 100.0100, L500.2500 ####[facility] [address] [place], [address] GFR/1.73 sq M.predicted among non-blacks MDRD (S/P/Bld) [Vol rate/Area] 123 mL/min/{1.73_m2} Normal >60 [facility] Comment on above: Result Comment: Non- GFR Calc Performed By: #### L 100.0100, L500.2500 ####[facility] [address] [place], [address] Glucose [Mass/Vol] 222 mg/dL High 74-106 [facility] Comment on above: Result Comment: Gluc ose result greater than or equal to 200 mg/dLsuggests DIABETES MELLITUS per A.D.A. criteria. Performed By: #### L 100.0100, L500.2500 ####[facility] [address] [place], [address] Potassium [Moles/Vol] 4.2 mmol/L Normal 3.5-5.1 [facility] Comment on above: Performed By: #### L 100.0100, L500.2500 ####[facility] [address] [place], [address] Sodium [Moles/Vol] 134 mmol/L Low 136-145 [facility] Comment on above: Performed By: #### L 100.0100, L500.2500 ####[facility] [address] [place], [address] Urea nitrogen [Mass/Vol] 8 mg/dL Normal 7-18 [facility] Comment on above: Performed By: #### L 100.0100, L500.2500 ####[facility] [address] [place], [address] Bedside Glucoseon 10-20-2024 FINGERSTICK GLU 94 mg/dL Normal 74-106 [facility] Comment on above: Result Comment: EDGAR GEMENT OF PATIENT CARE PER NURSING PROTOCOL Performed By: #### L 501.080 ####[facility] [address] [place], [address] FINGERSTICK GLU 337 mg/dL High 74-106 [facility] Comment on above: Result Comment: EDGAR GEMENT OF PATIENT CARE PER NURSING PROTOCOL Performed By: #### L 501.080 ####[facility] [address] [place], [address] FINGERSTICK GLU 441 mg/dL High 74-106 [facility] Comment on above: Result Comment: EDGAR GEMENT OF PATIENT CARE PER NURSING PROTOCOL Performed By: #### L 501.080 ####[facility] [address] [place], [address] FINGERSTICK GLU 200 mg/dL High 74-106 [facility] Comment on above: Result Comment: EDGAR GEMENT OF PATIENT CARE PER NURSING PROTOCOL Performed By: #### L 501.080 ####[facility] [address] [place], [address] FINGERSTICK GLU 90 mg/dL Normal 74-106 [facility] Comment on above: Result Comment: EDGAR GEMENT OF PATIENT CARE PER NURSING PROTOCOL Performed By: #### L 501.080 ####[facility] [address] [place], [address] FINGERSTICK GLU 182 mg/dL High 74-106 [facility] Comment on above: Result Comment: EDGAR GEMENT OF PATIENT CARE PER NURSING PROTOCOL Performed By: #### L 501.080 ####[facility] [address] [place], [address] FINGERSTICK GLU 303 mg/dL High 74-106 [facility] Comment on above: Result Comment: EDGAR GEMENT OF PATIENT CARE PER NURSING PROTOCOL Performed By: #### L 501.080 ####[facility] [address] [place], [address] CBC W/Diff, Automatedon 02-2 -2024 Absolute Lymph 2.82 X10 3/uL Normal 0.83-4.51 [facility] Comment on above: Performed By: #### L 100.0100, L500.2500 ####[facility] [address] [place], [address] Absolute Neut 6.3 X10 3/uL Normal 2.0-7.7 [facility] Comment on above: Performed By: #### L 100.0100, L500.2500 ####[facility] [address] [place], [address] Basophils/100 WBC (Bld) 0.4 % Normal 0-1 [facility] Comment on above: Performed By: #### L 100.0100, L500.2500 ####[facility] [address] [place], [address] Eosinophils/100 WBC (Bld) 3.1 % Normal 0-5 [facility] Comment on above: Performed By: #### L 100.0100, L500.2500 ####[facility] [address] [place], [address] Erythrocyte distribution width (RBC) [Ratio] 13.0 % Normal 11.6-14.6 [facility] Comment on above: Performed By: #### L 100.0100, L500.2500 ####[facility] [address] [place], [address] Hematocrit (Bld) [Volume fraction] 40.2 % Normal 37-47 [facility] Comment on above: Performed By: #### L 100.0100, L500.2500 ####[facility] [address] [place], [address] Hemoglobin (Bld) [Mass/Vol] 13.0 g/dL Normal 12.0-15.0 [facility] Comment on above: Performed By: #### L 100.0100, L500.2500 ####[facility] [address] [place], [address] IG% 0.700 Normal 0.0-0.9 [facility] Comment on above: Result Comment: IG% - Immature Granulocytes (promyelocytes, myelocytes andmetamyelocytes) > 1% indicates that a LEFT SHIFT is Present. Performed By: #### L 100.0100, L500.2500 ####[facility] [address] [place], [address] Lymphocytes/100 WBC (Bld) 27.9 % Normal 19-41 [facility] Comment on above: Performed By: #### L 100.0100, L500.2500 ####[facility] [address] [place], [address] MCH (RBC) [Entitic mass] 28.6 pg Normal 27.0-32.0 [facility] Comment on above: Performed By: #### L 100.0100, L500.2500 ####[facility] [address] [place], [address] MCHC (RBC) [Mass/Vol] 32.3 g/dL Normal 32-36 [facility] Comment on above: Performed By: #### L 100.0100, L500.2500 ####[facility] [address] [place], [address] MCV (RBC) [Entitic vol] 88.5 fL Normal 81-99 [facility] Comment on above: Performed By: #### L 100.0100, L500.2500 ####[facility] [address] [place], [address] Monocytes/100 WBC (Bld) 5.5 % Normal 0-10 [facility] Comment on above: Performed By: #### L 100.0100, L500.2500 ####[facility] [address] [place], [address] Neutrophils/100 WBC (Bld) 62.4 % Normal 47-70 [facility] Comment on above: Performed By: #### L 100.0100, L500.2500 ####[facility] [address] [place], [address] Nucleated RBC (Bld) [#/Vol] 0 10*3/uL Normal 0-5 [facility] Comment on above: Performed By: #### L 100.0100, L500.2500 ####[facility] [address] [place], [address] Platelet mean volume (Bld) [Entitic vol] 12.5 fL High 6.2-12.0 [facility] Comment on above: Performed By: #### L 100.0100, L500.2500 ####[facility] [address] [place], [address] Platelets (Bld) [#/Vol] 158 10*3/uL Normal 150-450 [facility] Comment on above: Performed By: #### L 100.0100, L500.2500 ####[facility] [address] [place], [address] RBC (Bld) [#/Vol] 4.54 10*6/uL Normal 4.2-5.4 [facility] Comment on above: Performed By: #### L 100.0100, L500.2500 ####[facility] [address] [place], [address] RDW SD 42.4 fl Normal 35.1-43.9 [facility] Comment on above: Performed By: #### L 100.0100, L500.2500 ####[facility] [address] [place], [address] WBC (Bld) [#/Vol] 10.1 10*3/uL Normal 4.4-11.0 [facility] Comment on above: Performed By: #### L 100.0100, L500.2500 ####[facility] [address] [place], [address] Urine Cultureon 10-20-2024 URC Mixed Gram Positive Organisms Snover Count 11,000-25,000 MIXC Mixed contaminants. Submit a new specimen if indicated. Normal [facility] Comment on above: Performed By: #### M 100.2200 ####[facility] [address] [place], [address] Bedside Glucoseon 10-19-2024 FINGERSTICK GLU 246 mg/dL High 74-106 [facility] Comment on above: Result Comment: EDGAR GEMENT OF PATIENT CARE PER NURSING PROTOCOL Performed By: #### L 501.080 ####[facility] [address] [place], [address] FINGERSTICK GLU 85 mg/dL Normal 74-106 [facility] Comment on above: Result Comment: EDGAR GEMENT OF PATIENT CARE PER NURSING PROTOCOL Performed By: #### L 501.080 ####[facility] [address] [place], [address] FINGERSTICK GLU 35 mg/dL Invalid Interpretation Code [address] [place] [address] Comment on above: Result Comment: EDGAR GEMENT OF PATIENT CARE PER NURSING PROTOCOL Performed By: #### L 501.080 ####[facility] [address] [place], [address] FINGERSTICK GLU 64 mg/dL Low -[address] [place] [address] Comment on above: Result Comment: EDGAR GEMENT OF PATIENT CARE PER NURSING PROTOCOL Performed By: #### L 501.080 ####[facility] [address] [place], [address] FINGERSTICK GLU 156 mg/dL High 74-[address] [place] [address] Comment on above: Result Comment: EDGAR GEMENT OF PATIENT CARE PER NURSING PROTOCOL Performed By: #### L 501.080 ####[facility] [address] [place], [address] FINGERSTICK GLU 53 mg/dL Low -[address] [place] [address] Comment on above: Result Comment: EDGAR GEMENT OF PATIENT CARE PER NURSING PROTOCOL Performed By: #### L 501.080 ####[facility] [address] [place], [address] FINGERSTICK GLU 40 mg/dL Invalid Interpretation Code [address] [place] [address] Comment on above: Result Comment: Nelly blancas GivenMANAGEMENT OF PATIENT CARE PER NURSING PROTOCOL Performed By: #### L 501.080 ####[facility] [address] [place], [address] FINGERSTICK GLU 235 mg/dL High 74-106 [facility] Comment on above: Result Comment: EDGAR GEMENT OF PATIENT CARE PER NURSING PROTOCOL Performed By: #### L 501.080 ####[facility] [address] [place], [address] FINGERSTICK GLU 52 mg/dL Low 74-106 [facility] Comment on above: Result Comment: EDGAR GEMENT OF PATIENT CARE PER NURSING PROTOCOL Performed By: #### L 501.080 ####[facility] [address] [place], [address] FINGERSTICK GLU 132 mg/dL High 74-106 [facility] Comment on above: Result Comment: EDGAR GEMENT OF PATIENT CARE PER NURSING PROTOCOL Performed By: #### L 501.080 ####[facility] [address] [place], [address] CBC W/Diff, Automatedon 02 Absolute Lymph 3.09 X10 3/uL Normal 0.83-4.51 [facility] Comment on above: Performed By: #### L 100.0100, L500.4050 ####[facility] [address] [place], [address] Absolute Neut 6.9 X10 3/uL Normal 2.0-7.7 [facility] Comment on above: Performed By: #### L 100.0100, L500.4050 ####[facility] [address] [place], [address] Basophils/100 WBC (Bld) 0.5 % Normal 0-1 [facility] Comment on above: Performed By: #### L 100.0100, L500.4050 ####[facility] [address] [place], [address] Eosinophils/100 WBC (Bld) 1.8 % Normal 0-5 [facility] Comment on above: Performed By: #### L 100.0100, L500.4050 ####[facility] [address] [place], [address] Erythrocyte distribution width (RBC) [Ratio] 13.2 % Normal 11.6-14.6 [facility] Comment on above: Performed By: #### L 100.0100, L500.4050 ####[facility] [address] [place], [address] Hematocrit (Bld) [Volume fraction] 37.6 % Normal 37-47 [facility] Comment on above: Performed By: #### L 100.0100, L500.4050 ####[facility] [address] [place], [address] Hemoglobin (Bld) [Mass/Vol] 12.5 g/dL Normal 12.0-15.0 [facility] Comment on above: Performed By: #### L 100.0100, L500.4050 ####[facility] [address] [place], [address] IG% 0.800 Normal 0.0-0.9 [facility] Comment on above: Result Comment: IG% - Immature Granulocytes (promyelocytes, myelocytes andmetamyelocytes) > 1% indicates that a LEFT SHIFT is Present. Performed By: #### L 100.0100, L500.4050 ####[facility] [address] [place], [address] Lymphocytes/100 WBC (Bld) 27.9 % Normal 19-41 [facility] Comment on above: Performed By: #### L 100.0100, L500.4050 ####[facility] [address] [place], [address] MCH (RBC) [Entitic mass] 29.3 pg Normal 27.0-32.0 [facility] Comment on above: Performed By: #### L 100.0100, L500.4050 ####[facility] [address] [place], [address] MCHC (RBC) [Mass/Vol] 33.2 g/dL Normal 32-36 [facility] Comment on above: Performed By: #### L 100.0100, L500.4050 ####[facility] [address] [place], [address] MCV (RBC) [Entitic vol] 88.1 fL Normal 81-99 [facility] Comment on above: Performed By: #### L 100.0100, L500.4050 ####[facility] [address] [place], [address] Monocytes/100 WBC (Bld) 6.8 % Normal 0-10 [facility] Comment on above: Performed By: #### L 100.0100, L500.4050 ####[facility] [address] [place], [address] Neutrophils/100 WBC (Bld) 62.2 % Normal 47-70 [facility] Comment on above: Performed By: #### L 100.0100, L500.4050 ####[facility] [address] [place], [address] Nucleated RBC (Bld) [#/Vol] 0 10*3/uL Normal 0-5 [facility] Comment on above: Performed By: #### L 100.0100, L500.4050 ####[facility] [address] [place], [address] Platelet mean volume (Bld) [Entitic vol] 12.0 fL Normal 6.2-12.0 [facility] Comment on above: Performed By: #### L 100.0100, L500.4050 ####[facility] [address] [place], [address] Platelets (Bld) [#/Vol] 149 10*3/uL Low 150-450 [facility] Comment on above: Performed By: #### L 100.0100, L500.4050 ####[facility] [address] [place], [address] RBC (Bld) [#/Vol] 4.27 10*6/uL Normal 4.2-5.4 [facility] Comment on above: Performed By: #### L 100.0100, L500.4050 ####[facility] [address] [place], [address] RDW SD 42.4 fl Normal 35.1-43.9 [facility] Comment on above: Performed By: #### L 100.0100, L500.4050 ####[facility] [address] [place], [address] WBC (Bld) [#/Vol] 11.1 10*3/uL High 4.4-11.0 [facility] Comment on above: Performed By: #### L 100.0100, L500.4050 ####[facility] [address] [place], [address] Comprehensive Metabolic Prof ilon 10-19-2024 Albumin [Mass/Vol] 3.0 g/dL Low 3.2-5.0 [facility] Comment on above: Performed By: #### L 100.0100, L500.4050 ####[facility] [address] [place], [address] Albumin/Globulin [Mass ratio] 0.9 {ratio} Normal 0.9-2.4 [facility] Comment on above: Performed By: #### L 100.0100, L500.4050 ####[facility] [address] [place], [address] ALK P 67 U/L Normal 45-117 [facility] Comment on above: Performed By: #### L 100.0100, L500.4050 ####[facility] [address] [place], [address] ALT [Catalytic activity/Vol] 21 U/L Normal 13-56 [facility] Comment on above: Performed By: #### L 100.0100, L500.4050 ####[facility] [address] [place], [address] AST [Catalytic activity/Vol] 13 U/L Low 15-37 [facility] Comment on above: Performed By: #### L 100.0100, L500.4050 ####[facility] [address] [place], [address] Bilirubin [Mass/Vol] 0.40 mg/dL Normal 0.20-1.00 [facility] Comment on above: Result Comment: For patients on eltrombopag therapy, use of Dimension Hale TBIL is not recommended. Performed By: #### L 100.0100, L500.4050 ####[facility] [address] [place], [address] BUN/CRE 14.4 RATIO Normal 10-20 [facility] Comment on above: Performed By: #### L 100.0100, L500.4050 ####[facility] [address] [place], [address] CA,Total 8.2 mg/dL Low 8.5-10.1 [facility] Comment on above: Performed By: #### L 100.0100, L500.4050 ####[facility] [address] [place], [address] Chloride [Moles/Vol] 112 mmol/L High 98-107 [facility] Comment on above: Performed By: #### L 100.0100, L500.4050 ####[facility] [address] [place], [address] CO2 [Moles/Vol] 21.0 mmol/L Normal 21.0-32.0 [facility] Comment on above: Performed By: #### L 100.0100, L500.4050 ####[facility] [address] [place], [address] Creatinine [Mass/Vol] 0.55 mg/dL Normal 0.55-1.02 [facility] Comment on above: Result Comment: The validity of the calculated GFR GFRAA in patients over70 years has not been determined. Clinical correlation isessential. Performed By: #### L 100.0100, L500.4050 ####[facility] [address] [place], [address] ECRCL 156.31 ml/min Normal [facility] Comment on above: Performed By: #### L 100.0100, L500.4050 ####[facility] [address] [place], [address] EST GFR - AA 165 mL/min Normal >60 [facility] Comment on above: Result Comment: Afri can [place] GFR Calc Performed By: #### L 100.0100, L500.4050 ####[facility] [address] [place], [address] GAP 8 Normal 5-15 [facility] Comment on above: Performed By: #### L 100.0100, L500.4050 ####[facility] [address] [place], [address] GFR/1.73 sq M.predicted among non-blacks MDRD (S/P/Bld) [Vol rate/Area] 137 mL/min/{1.73_m2} Normal >60 [facility] Comment on above: Result Comment: Non- GFR Calc Performed By: #### L 100.0100, L500.4050 ####[facility] [address] [place], [address] Globulin (S) [Mass/Vol] 3.2 g/dL Normal 2.2-4.2 [facility] Comment on above: Performed By: #### L 100.0100, L500.4050 ####[facility] [address] [place], [address] Glucose [Mass/Vol] 49 mg/dL Low 74-106 [facility] Comment on above: Result Comment: Gluc ose result less than 50 mg/dL suggests HYPOGLYCEMIA. Performed By: #### L 100.0100, L500.4050 ####[facility] [address] [place], [address] Potassium [Moles/Vol] 3.7 mmol/L Normal 3.5-5.1 [facility] Comment on above: Performed By: #### L 100.0100, L500.4050 ####[facility] [address] [place], [address] Sodium [Moles/Vol] 140 mmol/L Normal 136-145 [facility] Comment on above: Performed By: #### L 100.0100, L500.4050 ####[facility] [address] [place], [address] T PROT 6.2 g/dL Low 6.4-8.2 [facility] Comment on above: Performed By: #### L 100.0100, L500.4050 ####[facility] [address] [place], [address] Urea nitrogen [Mass/Vol] 8 mg/dL Normal 7-18 [facility] Comment on above: Performed By: #### L 100.0100, L500.4050 ####[facility] [address] [place], [address] Glucoseon 10-19-2024 Glucose [Mass/Vol] 231 mg/dL High 74-106 [facility] Comment on above: Result Comment: Gluc ose result greater than or equal to 200 mg/dLsuggests DIABETES MELLITUS per A.D.A. criteria. Performed By: #### L 501.0100 ####[facility] [address] [place], [address] Glucose [Mass/Vol] 88 mg/dL Normal 74-106 [facility] Comment on above: Performed By: #### L 501.0100 ####[facility] [address] [place], [address] 12 Lead EKGon 10-18-2024 12 Lead EKG Normal [facility] Abdomen/Pelvis W IV Cont ONL Yon 10-18-2024 Abdomen/Pelvis W IV Cont ONLY Normal [facility] Acetone Serumon 10-18-2024 ACETONE SERUM Negative Normal NEG [facility] Comment on above: Performed By: #### L 501.6900 ####[facility] [address] [place], [address] Bedside Glucoseon 10-18-2024 FINGERSTICK GLU 85 mg/dL Normal [address] [place] [address] Comment on above: Result Comment: EDGAR GEMENT OF PATIENT CARE PER NURSING PROTOCOL Performed By: #### L 501.080 ####[facility] [address] [place], [address] FINGERSTICK GLU 100 mg/dL Normal [address] [place] [address] Comment on above: Result Comment: EDGAR GEMENT OF PATIENT CARE PER NURSING PROTOCOL Performed By: #### L 501.080 ####[facility] [address] [place], [address] FINGERSTICK GLU 62 mg/dL Low -[address] [place] [address] Comment on above: Result Comment: EDGAR GEMENT OF PATIENT CARE PER NURSING PROTOCOL Performed By: #### L 501.080 ####[facility] [address] [place], [address] CBC W/Diff, Automatedon 02-2 Absolute Lymph 1.82 X10 3/uL Normal 0.83-4.51 [facility] Comment on above: Performed By: #### L 501.2450, L100.0100, L700.6800, L500.4050 ####[facility] [address] [place], [address] Absolute Neut 14.0 X10 3/uL High 2.0-7.7 [facility] Comment on above: Performed By: #### L 501.2450, L100.0100, L700.6800, L500.4050 ####[facility] [address] [place], [address] Basophils/100 WBC (Bld) 0.2 % Normal 0-1 [facility] Comment on above: Performed By: #### L 501.2450, L100.0100, L700.6800, L500.4050 ####[facility] [address] [place], [address] Eosinophils/100 WBC (Bld) 0.2 % Normal 0-5 [facility] Comment on above: Performed By: #### L 501.2450, L100.0100, L700.6800, L500.4050 ####[facility] [address] [place], [address] Erythrocyte distribution width (RBC) [Ratio] 13.1 % Normal 11.6-14.6 [facility] Comment on above: Performed By: #### L 501.2450, L100.0100, L700.6800, L500.4050 ####[facility] [address] [place], [address] Hematocrit (Bld) [Volume fraction] 38.8 % Normal 37-47 [facility] Comment on above: Performed By: #### L 501.2450, L100.0100, L700.6800, L500.4050 ####[facility] [address] [place], [address] Hemoglobin (Bld) [Mass/Vol] 12.9 g/dL Normal 12.0-15.0 [facility] Comment on above: Performed By: #### L 501.2450, L100.0100, L700.6800, L500.4050 ####[facility] [address] [place], [address] IG% 0.600 Normal 0.0-0.9 [facility] Comment on above: Result Comment: IG% - Immature Granulocytes (promyelocytes, myelocytes andmetamyelocytes) > 1% indicates that a LEFT SHIFT is Present. Performed By: #### L 501.2450, L100.0100, L700.6800, L500.4050 ####[facility] [address] [place], [address] Lymphocytes/100 WBC (Bld) 10.7 % Low 19-41 [facility] Comment on above: Performed By: #### L 501.2450, L100.0100, L700.6800, L500.4050 ####[facility] [address] [place], [address] MCH (RBC) [Entitic mass] 29.3 pg Normal 27.0-32.0 [facility] Comment on above: Performed By: #### L 501.2450, L100.0100, L700.6800, L500.4050 ####[facility] [address] [place], [address] MCHC (RBC) [Mass/Vol] 33.2 g/dL Normal 32-36 [facility] Comment on above: Performed By: #### L 501.2450, L100.0100, L700.6800, L500.4050 ####[facility] [address] [place], [address] MCV (RBC) [Entitic vol] 88.2 fL Normal 81-99 [facility] Comment on above: Performed By: #### L 501.2450, L100.0100, L700.6800, L500.4050 ####[facility] [address] [place], [address] Monocytes/100 WBC (Bld) 6.1 % Normal 0-10 [facility] Comment on above: Performed By: #### L 501.2450, L100.0100, L700.6800, L500.4050 ####[facility] [address] [place], [address] Neutrophils/100 WBC (Bld) 82.2 % High 47-70 [facility] Comment on above: Performed By: #### L 501.2450, L100.0100, L700.6800, L500.4050 ####[facility] [address] [place], [address] Nucleated RBC (Bld) [#/Vol] 0 10*3/uL Normal 0-5 [facility] Comment on above: Performed By: #### L 501.2450, L100.0100, L700.6800, L500.4050 ####[facility] [address] [place], [address] Platelet mean volume (Bld) [Entitic vol] 12.3 fL High 6.2-12.0 [facility] Comment on above: Performed By: #### L 501.2450, L100.0100, L700.6800, L500.4050 ####[facility] [address] [place], [address] Platelets (Bld) [#/Vol] 166 10*3/uL Normal 150-450 [facility] Comment on above: Performed By: #### L 501.2450, L100.0100, L700.6800, L500.4050 ####[facility] [address] [place], [address] RBC (Bld) [#/Vol] 4.40 10*6/uL Normal 4.2-5.4 [facility] Comment on above: Performed By: #### L 501.2450, L100.0100, L700.6800, L500.4050 ####[facility] [address] [place], [address] RDW SD 42.5 fl Normal 35.1-43.9 [facility] Comment on above: Performed By: #### L 501.2450, L100.0100, L700.6800, L500.4050 ####[facility] [address] [place], [address] WBC (Bld) [#/Vol] 17.1 10*3/uL High 4.4-11.0 [facility] Comment on above: Performed By: #### L 501.2450, L100.0100, L700.6800, L500.4050 ####[facility] [address] [place], [address] Comprehensive Metabolic Prof [facility] 10-18-2024 Albumin [Mass/Vol] 3.7 g/dL Normal 3.2-5.0 [facility] Comment on above: Performed By: #### L 501.2450, L100.0100, L700.6800, L500.4050 ####[facility] [address] [place], [address] Albumin/Globulin [Mass ratio] 1.1 {ratio} Normal 0.9-2.4 [facility] Comment on above: Performed By: #### L 501.2450, L100.0100, L700.6800, L500.4050 ####[facility] [address] [place], [address] ALK P 84 U/L Normal 45-117 [facility] Comment on above: Performed By: #### L 501.2450, L100.0100, L700.6800, L500.4050 ####[facility] [address] [place], [address] ALT [Catalytic activity/Vol] 24 U/L Normal 13-56 [facility] Comment on above: Performed By: #### L 501.2450, L100.0100, L700.6800, L500.4050 ####[facility] [address] [place], [address] AST [Catalytic activity/Vol] 14 U/L Low 15-37 [facility] Comment on above: Performed By: #### L 501.2450, L100.0100, L700.6800, L500.4050 ####[facility] [address] [place], [address] Bilirubin [Mass/Vol] 0.40 mg/dL Normal 0.20-1.00 [facility] Comment on above: Result Comment: For patients on eltrombopag therapy, use of Dimension Hale TBIL is not recommended. Performed By: #### L 501.2450, L100.0100, L700.6800, L500.4050 ####[facility] [address] [place], [address] BUN/CRE 19.7 RATIO Normal 10-20 [facility] Comment on above: Performed By: #### L 501.2450, L100.0100, L700.6800, L500.4050 ####[facility] [address] [place], [address] CA,Total 9.4 mg/dL Normal 8.5-10.1 [facility] Comment on above: Performed By: #### L 501.2450, L100.0100, L700.6800, L500.4050 ####[facility] [address] [place], [address] Chloride [Moles/Vol] 109 mmol/L High 98-107 [facility] Comment on above: Performed By: #### L 501.2450, L100.0100, L700.6800, L500.4050 ####[facility] [address] [place], [address] CO2 [Moles/Vol] 25.0 mmol/L Normal 21.0-32.0 [facility] Comment on above: Performed By: #### L 501.2450, L100.0100, L700.6800, L500.4050 ####[facility] [address] [place], [address] Creatinine [Mass/Vol] 0.76 mg/dL Normal 0.55-1.02 [facility] Comment on above: Result Comment: The validity of the calculated GFR GFRAA in patients over70 years has not been determined. Clinical correlation isessential. Performed By: #### L 501.2450, L100.0100, L700.6800, L500.4050 ####[facility] [address] [place], [address] ECRCL 123.05 ml/min Normal [facility] Comment on above: Performed By: #### L 501.2450, L100.0100, L700.6800, L500.4050 ####[facility] [address] [place], [address] EST GFR - AA 115 mL/min Normal >60 [facility] Comment on above: Result Comment: Afri can [place] GFR Calc Performed By: #### L 501.2450, L100.0100, L700.6800, L500.4050 ####[facility] [address] [place], [address] GAP 5 Normal 5-15 [facility] Comment on above: Performed By: #### L 501.2450, L100.0100, L700.6800, L500.4050 ####[facility] [address] [place], [address] GFR/1.73 sq M.predicted among non-blacks MDRD (S/P/Bld) [Vol rate/Area] 95 mL/min/{1.73_m2} Normal >60 [facility] Comment on above: Result Comment: Non- GFR Calc Performed By: #### L 501.2450, L100.0100, L700.6800, L500.4050 ####[facility] [address] [place], [address] Globulin (S) [Mass/Vol] 3.4 g/dL Normal 2.2-4.2 [facility] Comment on above: Performed By: #### L 501.2450, L100.0100, L700.6800, L500.4050 ####[facility] [address] [place], [address] Glucose [Mass/Vol] 116 mg/dL High 74-106 [facility] Comment on above: Result Comment: Fast ing Glucose result from 100 to 125 mg/dLsuggests IMPAIRED HOMEOSTASIS per A.D.A. criteria. Performed By: #### L 501.2450, L100.0100, L700.6800, L500.4050 ####[facility] [address] [place], [address] Potassium [Moles/Vol] 4.0 mmol/L Normal 3.5-5.1 [facility] Comment on above: Performed By: #### L 501.2450, L100.0100, L700.6800, L500.4050 ####[facility] [address] [place], [address] Sodium [Moles/Vol] 139 mmol/L Normal 136-145 [facility] Comment on above: Performed By: #### L 501.2450, L100.0100, L700.6800, L500.4050 ####[facility] [address] [place], [address] T PROT 7.1 g/dL Normal 6.4-8.2 [facility] Comment on above: Performed By: #### L 501.2450, L100.0100, L700.6800, L500.4050 ####[facility] [address] [place], [address] Urea nitrogen [Mass/Vol] 15 mg/dL Normal 7-18 [facility] Comment on above: Performed By: #### L 501.2450, L100.0100, L700.6800, L500.4050 ####[facility] [address] [place], [address] Emergency Department Summary on 10-18-2024 Emergency Department Summary Normal [facility] H AND P Exam - Hospitaliston 10-18-2024 H&P Exam - Hospitalist Normal [facility] Lactic Acidon 10-18-2024 Lactate [Moles/Vol] 1.4 mmol/L Normal 0.4-1.9 [facility] Comment on above: Order Comment: Y Performed By: #### L 700.6800, L503.6005 ####[facility] [address] [place], [address] Lipaseon 10-18-2024 Lipase [Catalytic activity/Vol] 18 U/L Low 73-393 [facility] Comment on above: Performed By: #### L 501.2450, L100.0100, L700.6800, L500.4050 ####[facility] [address] [place], [address] M100.678on 10-18-2024 M100.678 SARS-CoV-2 (COVID 19 ) Negative INFLUENZA A Negative INFLUENZA B Negative RSV PCR Negative Normal [facility] Comment on above: Performed By: #### M 100.678 ####[facility] [address] [place], [address] Magnesiumon 10-18-2024 Magnesium [Mass/Vol] 1.8 mg/dL Normal 1.6-2.6 [facility] Comment on above: Order Comment: Comme nts: May add to ED labsComments: may add to ED labs Performed By: #### L 509.7000, L501.2300, L501.5200 ####[facility] [address] [place], [address] Phosphoruson 10-18-2024 Phosphate [Mass/Vol] 3.3 mg/dL Normal 2.5-4.9 [facility] Comment on above: Order Comment: Comme nts: May add to ED labsComments: may add to ED labs Performed By: #### L 509.7000, L501.2300, L501.5200 ####[facility] [address] [place], [address] ,Serum,hCG Quali.on 10-18-2024 HCG, SERUM QUAL Negative Normal [facility] Comment on above: Performed By: #### L 501.2450, L100.0100, L700.6800, L500.4050 ####[facility] [address] [place], [address] HCG, SERUM QUAL Normal [facility] Comment on above: Result Comment: Mary sanchez via OM: Ordered Performed By: #### L 700.6800, L503.6005 ####[facility] [address] [place], [address] INTERNAL QC OK? Normal [facility] Comment on above: Result Comment: Canc elled via OM: MD Ordered Performed By: #### L 700.6800, L503.6005 ####[facility] [address] [place], [address] RECORD KIT LOT# Normal [facility] Comment on above: Result Comment: Canc elled via OM: MD Ordered Performed By: #### L 700.6800, L503.6005 ####[facility] [address] [place], [address] Procalcitoninon 10-18-2024 Procalcitonin 0.07 ng/mL Normal 0.00-0.09 [facility] Comment on above: Result Comment: A [...] Performed By: #### L 509.7000, L501.2300, L501.5200 ####[facility] [address] [place], [place], [address] Urinalysis, Completeon 10-18 BACTERIA 1+ /hpf Normal None Seen [facility] Comment on above: Order Comment: CLEAN CATCH Performed By: #### L 400.0001 ####[facility] [address] [place], [address] EPI,SQUAMOUS 0-5 SEEN Normal 5-10 [facility] Comment on above: Order Comment: CLEAN CATCH Performed By: #### L 400.0001 ####[facility] [address] [place], [address] Mucus Ql (Urine sed) 1+ /hpf Normal [facility] Comment on above: Order Comment: CLEAN CATCH Performed By: #### L 400.0001 ####[facility] [address] [place], [address] RBC 5-10 SEEN Normal 0-5 [facility] Comment on above: Order Comment: CLEAN CATCH Performed By: #### L 400.0001 ####[facility] [address] [place], [address] WBC 10-25 SEEN Normal 0-5 [facility] Comment on above: Order Comment: CLEAN CATCH Performed By: #### L 400.0001 ####[facility] [address] [place], [address] Venous Blood Gason 5 Blood Gas Type ISABELLE Normal [facility] Comment on above: Performed By: #### L 9000.0810 ####[facility] [address] [place], [address] CO2 [Moles/Vol] 26 mmol/L Normal 23-33 [facility] Comment on above: Performed By: #### L 9000.0810 ####[facility] [address] [place], [address] HCO3 (Bld) [Moles/Vol] 25 mmol/L Normal 22-26 [facility] Comment on above: Performed By: #### L 9000.0810 ####[facility] [address] [place], [address] O2 Delivery Dev Room Air Normal [facility] Comment on above: Performed By: #### L 9000.0810 ####[facility] [address] [place], [address] SITE Not entered Normal [facility] Comment on above: Performed By: #### L 9000.0810 ####[facility] [address] [place], [address] VBG BE 0 mmol/L Normal -1.0-3.5 [facility] Comment on above: Performed By: #### L 9000.0810 ####[facility] [address] [place], [address] VBG pCO2 41.6 mmHg Normal 41-51 [facility] Comment on above: Performed By: #### L 9000.0810 ####[facility] [address] [place], [address] VBG pH 7.38 Normal 7.32-7.42 [facility] Comment on above: Performed By: #### L 9000.0810 ####[facility] [address] [place], [address] VBG PO2 32 mmHg Normal 25-40 [facility] Comment on above: Performed By: #### L 9000.0810 ####[facility] [address] [place], [address] VBG SO2 59 Normal 50-70 [facility] Comment on above: Performed By: #### L 9000.0810 ####[facility] [address] [place], [address] CNPDanitza 10-02-2024 GIOVANA Telephone (ENDOIN) KATHLEEN VILLA ([id number]) 1995 F CHT Date Time Provider Department 10/02/24 JESSICA GUERRERO During your visit today, we recorded the following information about you: Nichole Quinteros 10/02/2024 9:53 AM Signed Patient has been identified by name and date of : Yes Type of form: [facility] Medical Physician Order for Insulin Pump Therapy and Diabetes Testing Form received via: abstract When form is completed, fax form to fax number provided. Form has been forwarded to: Provider's mailbox. Provider name: FRIEDA Urena Diamond, RN 10/02/2024 2:45 PM Signed Clinical notes and DWO for infusion supplies placed on providers desk to review and advise. To be faxed to [facility] Medical [phone] Jessica Guerrero APRN.CNP 10/02/2024 3:09 PM Signed Form signed. RHYS Urena Diamond, RN 10/10/2024 11:49 AM Signed Form re-faxed per [facility] request Allergies As of Date: 10/02/2024 [...] Units subcutaneously every 24 hours. 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 Normal [facility] Basic Metabolic Profile (BMP )on 09-02-2024 BUN/CRE 16.2 RATIO Normal 06-16 [facility] Comment on above: Performed By: #### L 100.0100, L500.2500 ####[facility] [address] [place], [address] CA,Total 9.2 mg/dL Normal 8.5-10.1 [facility] Comment on above: Performed By: #### L 100.0100, L500.2500 ####[facility] [address] [place], [address] Chloride [Moles/Vol] 112 mmol/L High 98-107 [facility] Comment on above: Performed By: #### L 100.0100, L500.2500 ####[facility] [address] [place], [address] CO2 [Moles/Vol] 21.0 mmol/L Normal 21.0-32.0 [facility] Comment on above: Performed By: #### L 100.0100, L500.2500 ####[facility] [address] [place], [address] Creatinine [Mass/Vol] 0.86 mg/dL Normal 0.55-1.02 [facility] Comment on above: Result Comment: The validity of the calculated GFR GFRAA in patients over70 years has not been determined. Clinical correlation isessential. Performed By: #### L 100.0100, L500.2500 ####[facility] [address] [place], [address] ECRCL 99.96 ml/min Normal [facility] Comment on above: Performed By: #### L 100.0100, L500.2500 ####[facility] [address] [place], [address] EST GFR - AA 99 mL/min Normal >60 [facility] Comment on above: Result Comment: Afri can [place] GFR Calc Performed By: #### L 100.0100, L500.2500 ####[facility] [address] [place], [address] GAP 10 Normal 5-15 [facility] Comment on above: Performed By: #### L 100.0100, L500.2500 ####[facility] [address] [place], [address] GFR/1.73 sq M.predicted among non-blacks MDRD (S/P/Bld) [Vol rate/Area] 82 mL/min/{1.73_m2} Normal >60 [facility] Comment on above: Result Comment: Non- GFR Calc Performed By: #### L 100.0100, L500.2500 ####[facility] [address] [place], [address] Glucose [Mass/Vol] 129 mg/dL High 74-106 [facility] Comment on above: Result Comment: Fast ing Glucose result greater than or equal to 126 mg/dLsuggests DIABETES MELLITUS per A.D.A. criteria. Performed By: #### L 100.0100, L500.2500 ####[facility] [address] [place], [address] Potassium [Moles/Vol] 3.0 mmol/L Low 3.5-5.1 [facility] Comment on above: Performed By: #### L 100.0100, L500.2500 ####[facility] [address] [place], [address] Sodium [Moles/Vol] 142 mmol/L Normal 136-145 [facility] Comment on above: Performed By: #### L 100.0100, L500.2500 ####[facility] [address] [place], [address] Urea nitrogen [Mass/Vol] 14 mg/dL Normal 7-18 [facility] Comment on above: Performed By: #### L 100.0100, L500.2500 ####[facility] [address] [place], [address] CBC W/Diff, Automatedon 0 Absolute Lymph 2.60 X10 3/uL Normal 0.83-4.51 [facility] Comment on above: Performed By: #### L 100.0100, L500.2500 ####[facility] [address] [place], [address] Absolute Neut 12.8 X10 3/uL High 2.0-7.7 [facility] Comment on above: Performed By: #### L 100.0100, L500.2500 ####[facility] [address] [place], [address] Basophils/100 WBC (Bld) 0.5 % Normal 0-1 [facility] Comment on above: Performed By: #### L 100.0100, L500.2500 ####[facility] [address] [place], [address] Eosinophils/100 WBC (Bld) 0.4 % Normal 0-5 [facility] Comment on above: Performed By: #### L 100.0100, L500.2500 ####[facility] [address] [place], [address] Erythrocyte distribution width (RBC) [Ratio] 12.6 % Normal 11.6-14.6 [facility] Comment on above: Performed By: #### L 100.0100, L500.2500 ####[facility] [address] [place], [address] Hematocrit (Bld) [Volume fraction] 42.7 % Normal 37-47 [facility] Comment on above: Performed By: #### L 100.0100, L500.2500 ####[facility] [address] [place], [address] Hemoglobin (Bld) [Mass/Vol] 14.1 g/dL Normal 12.0-15.0 [facility] Comment on above: Performed By: #### L 100.0100, L500.2500 ####[facility] [address] [place], [address] IG% 1.000 High 0.0-0.9 [facility] Comment on above: Result Comment: IG% - Immature Granulocytes (promyelocytes, myelocytes andmetamyelocytes) > 1% indicates that a LEFT SHIFT is Present. Performed By: #### L 100.0100, L500.2500 ####[facility] [address] [place], [address] Lymphocytes/100 WBC (Bld) 15.8 % Low 19-41 [facility] Comment on above: Performed By: #### L 100.0100, L500.2500 ####[facility] [address] [place], [address] MCH (RBC) [Entitic mass] 28.9 pg Normal 27.0-32.0 [facility] Comment on above: Performed By: #### L 100.0100, L500.2500 ####[facility] [address] [place], [address] MCHC (RBC) [Mass/Vol] 33.0 g/dL Normal 32-36 [facility] Comment on above: Performed By: #### L 100.0100, L500.2500 ####[facility] [address] [place], [address] MCV (RBC) [Entitic vol] 87.5 fL Normal 81-99 [facility] Comment on above: Performed By: #### L 100.0100, L500.2500 ####[facility] [address] [place], [address] Monocytes/100 WBC (Bld) 4.6 % Normal 0-10 [facility] Comment on above: Performed By: #### L 100.0100, L500.2500 ####[facility] [address] [place], [address] Neutrophils/100 WBC (Bld) 77.7 % High 47-70 [facility] Comment on above: Performed By: #### L 100.0100, L500.2500 ####[facility] [address] [place], [address] Nucleated RBC (Bld) [#/Vol] 0 10*3/uL Normal 0-5 [facility] Comment on above: Performed By: #### L 100.0100, L500.2500 ####[facility] [address] [place], [address] Platelet mean volume (Bld) [Entitic vol] 12.5 fL High 6.2-12.0 [facility] Comment on above: Performed By: #### L 100.0100, L500.2500 ####[facility] [address] [place], [address] Platelets (Bld) [#/Vol] 199 10*3/uL Normal 150-450 [facility] Comment on above: Performed By: #### L 100.0100, L500.2500 ####[facility] [address] [place], [address] RBC (Bld) [#/Vol] 4.88 10*6/uL Normal 4.2-5.4 [facility] Comment on above: Performed By: #### L 100.0100, L500.2500 ####[facility] [address] [place], [address] RDW SD 40.3 fl Normal 35.1-43.9 [facility] Comment on above: Performed By: #### L 100.0100, L500.2500 ####[facility] [address] [place], [address] WBC (Bld) [#/Vol] 16.5 10*3/uL High 4.4-11.0 [facility] Comment on above: Performed By: #### L 100.0100, L500.2500 ####[facility] [address] [place], [address] Emergency Department Summary on 09-02-2024 Emergency Department Summary Normal [facility] Urinalysis, Completeon 09-02 BACTERIA 2+ /hpf Normal None Seen [facility] Comment on above: Order Comment: CLEAN CATCH Performed By: #### L 400.0001 ####[facility] [address] [place], [address] EPI,SQUAMOUS 0-5 SEEN Normal 5-10 [facility] Comment on above: Order Comment: CLEAN CATCH Performed By: #### L 400.0001 ####[facility] [address] [place], [address] Mucus Ql (Urine sed) RARE Normal [facility] Comment on above: Order Comment: CLEAN CATCH Performed By: #### L 400.0001 ####[facility] [address] [place], [address] WBC 0-5 SEEN Normal 0-5 [facility] Comment on above: Order Comment: CLEAN CATCH Performed By: #### L 400.0001 ####[facility] [address] [place], [address] RBC 0 SEEN Normal 0-5 [facility] Comment on above: Order Comment: CLEAN CATCH Performed By: #### L 400.0001 ####[facility] [address] [place], [address] 36on 08-07-2024 36 Medication: Skyrizi 150mg/ml Dosing Schedule: 150mg every 12 weeks Prior Authorization: Submitted date: 08.07.2024 [place] reference #: [id number] Approval dates: 08.07.2024-08.27.2024 [facility] [phone] Normal [facility] Urine Cultureon 08-04-2024 [facility] Mixed Gram Positive Organisms Snover Count 11,000-25,000 [facility] Mixed contaminants. Submit a new specimen if indicated. Normal [facility] Comment on above: Performed By: #### M 100.4869 ####[facility] [address] [place], [address] Basic Metabolic Profile (BMP )on 08-03-2024 BUN/CRE 9.9 RATIO Low 10-20 [facility] Comment on above: Order Comment: Call MD with results STAT Performed By: #### L 501.9520, L500.2500, L501.2300 ####[facility] [address] [place], [address] CA,Total 7.9 mg/dL Low 8.5-10.1 [facility] Comment on above: Order Comment: Call MD with results STAT Performed By: #### L 501.9520, L500.2500, L501.2300 ####[facility] [address] [place], [address] Chloride [Moles/Vol] 114 mmol/L High 98-107 [facility] Comment on above: Order Comment: Call MD with results STAT Performed By: #### L 501.9520, L500.2500, L501.2300 ####[facility] [address] [place], [address] CO2 [Moles/Vol] 22.0 mmol/L Normal 21.0-32.0 [facility] Comment on above: Order Comment: Call MD with results STAT Performed By: #### L 501.9520, L500.2500, L501.2300 ####[facility] [address] [place], [address] Creatinine [Mass/Vol] 0.61 mg/dL Normal 0.55-1.02 [facility] Comment on above: Order Comment: Call MD with results STAT Result Comment: The validity of the calculated GFR GFRAA in patients over70 years has not been determined. Clinical correlation isessential. Performed By: #### L 501.9520, L500.2500, L501.2300 ####[facility] [address] [place], [address] ECRCL 140.93 ml/min Normal [facility] Comment on above: Order Comment: Call MD with results STAT Performed By: #### L 501.9520, L500.2500, L501.2300 ####[facility] [address] [place], [address] EST GFR - AA 149 mL/min Normal >60 [facility] Comment on above: Order Comment: Call MD with results STAT Result Comment: Afri can Botswanan GFR Calc Performed By: #### L 501.9520, L500.2500, L501.2300 ####[facility] [address] [place], [address] GAP 5 Normal 5-15 [facility] Comment on above: Order Comment: Call MD with results STAT Performed By: #### L 501.9520, L500.2500, L501.2300 ####[facility] [address] [place], [address] GFR/1.73 sq M.predicted among non-blacks MDRD (S/P/Bld) [Vol rate/Area] 123 mL/min/{1.73_m2} Normal >60 [facility] Comment on above: Order Comment: Call MD with results STAT Result Comment: Non- GFR Calc Performed By: #### L 501.9520, L500.2500, L501.2300 ####[facility] [address] [place], [address] Glucose [Mass/Vol] 193 mg/dL High 74-106 [facility] Comment on above: Order Comment: Call MD with results STAT Result Comment: Fast ing Glucose result greater than or equal to 126 mg/dLsuggests DIABETES MELLITUS per A.D.A. criteria. Performed By: #### L 501.9520, L500.2500, L501.2300 ####[facility] [address] [place], [address] Potassium [Moles/Vol] 4.5 mmol/L Normal 3.5-5.1 [facility] Comment on above: Order Comment: Call MD with results STAT Result Comment: Slig ht Hemolysis, Result may be falsely increased. Performed By: #### L 501.9520, L500.2500, L501.2300 ####[facility] [address] [place], [address] Sodium [Moles/Vol] 140 mmol/L Normal 136-145 [facility] Comment on above: Order Comment: Call MD with results STAT Performed By: #### L 501.9520, L500.2500, L501.2300 ####[facility] [address] [place], [address] Urea nitrogen [Mass/Vol] 6 mg/dL Low 7-18 [facility] Comment on above: Order Comment: Call MD with results STAT Performed By: #### L 501.9520, L500.2500, L501.2300 ####[facility] [address] [place], [address] BUN Normal 7-18 [facility] Comment on above: Order Comment: Call MD with results STAT Result Comment: @NOT NEEDED BY [place] FIRE CONTROL TECHNICIAN Performed By: #### L 500.2500 ####[facility] [address] [place], [address] BUN/CRE Normal 10-20 [facility] Comment on above: Order Comment: Call with results STAT Result Comment: @NOT NEEDED BY [place] FIRE CONTROL TECHNICIAN Performed By: #### L 500.2500 ####[facility] [address] [place], [address] CA,Total Normal 8.5-10.1 [facility] Comment on above: Order Comment: Call MD with results STAT Result Comment: @NOT NEEDED BY ROLANR2 FIRE CONTROL TECHNICIAN Performed By: #### L 500.2500 ####[facility] [address] [place], [address] CL Normal 98-107 [facility] Comment on above: Order Comment: Call MD with results STAT Result Comment: @NOT NEEDED BY PETRONAR2 FIRE CONTROL TECHNICIAN Performed By: #### L 500.2500 ####[facility] [address] [place], [address] CO2 Normal 21.0-32.0 [facility] Comment on above: Order Comment: Call MD with results STAT Result Comment: @NOT NEEDED BY TMPETRONAR2 FIRE CONTROL TECHNICIAN Performed By: #### L 500.2500 ####[facility] [address] [place], [address] CREAT,SERUM Normal 0.55-1.02 [facility] Comment on above: Order Comment: Call MD with results STAT Result Comment: @NOT NEEDED BY TMPETRONAR2 FIRE CONTROL TECHNICIAN Performed By: #### L 500.2500 ####[facility] [address] [place], [address] EST GFR Normal >60 [facility] Comment on above: Order Comment: Call MD with results STAT Result Comment: @NOT NEEDED BY PETRONAR2 FIRE CONTROL TECHNICIAN Performed By: #### L 500.2500 ####[facility] [address] [place], [address] EST GFR - AA Normal >60 [facility] Comment on above: Order Comment: Call MD with results STAT Result Comment: @NOT NEEDED BY PETRONAR2 FIRE CONTROL TECHNICIAN Performed By: #### L 500.2500 ####[facility] [address] [place], [address] GAP Normal 5-15 [facility] Comment on above: Order Comment: Call MD with results STAT Result Comment: @NOT NEEDED BY ROLANR2 FIRE CONTROL TECHNICIAN Performed By: #### L 500.2500 ####[facility] [address] [place], [address] GLU Normal 74-106 [facility] Comment on above: Order Comment: Call MD with results STAT Result Comment: @NOT NEEDED BY TMILLER2 FIRE CONTROL TECHNICIAN Performed By: #### L 500.2500 ####[facility] [address] [place], [address] Potassium Normal 3.5-5.1 [facility] Comment on above: Order Comment: Call MD with results STAT Result Comment: @NOT NEEDED BY ROLANR2 FIRE CONTROL TECHNICIAN Performed By: #### L 500.2500 ####[facility] [address] [place], [address] Basic Metabolic Profile (BMP) Normal 136-145 [facility] Comment on above: Order Comment: Call MD with results STAT Result Comment: @NOT NEEDED BY [place] FIRE CONTROL TECHNICIAN Performed By: #### L 500.2500 ####[facility] [address] [place], [address] Bedside Glucoseon 08-03-2024 FINGERSTICK GLU 212 mg/dL High 74-106 [facility] Comment on above: Result Comment: EDGAR GEMENT OF PATIENT CARE PER NURSING PROTOCOL Performed By: #### L 501.080 ####[facility] [address] [place], [address] FINGERSTICK GLU 256 mg/dL High 74-106 [facility] Comment on above: Result Comment: EDGAR GEMENT OF PATIENT CARE PER NURSING PROTOCOL Performed By: #### L 501.080 ####[facility] [address] [place], [address] FINGERSTICK GLU 153 mg/dL High 74-106 [facility] Comment on above: Result Comment: EDGAR GEMENT OF PATIENT CARE PER NURSING PROTOCOL Performed By: #### L 501.080 ####[facility] [address] [place], [address] Discharge Instructionon 12-0 Discharge Instruction Normal [facility] Phosphoruson 08-03-2024 Phosphate [Mass/Vol] 1.8 mg/dL Low 2.5-4.9 [facility] Comment on above: Order Comment: Call MD with results STAT Performed By: #### L 501.9520, L500.2500, L501.2300 ####[facility] [address] [place], [address] Thyroid Stim Hormone (TSH)on 08-03-2024 TSH 2.360 uIU/mL Normal 0.358-3.740 [facility] Comment on above: Order Comment: Call MD with results STAT Performed By: #### L 501.9520, L500.2500, L501.2300 ####[facility] [address] [place], [address] Acetone Serumon 08-02-2024 ACETONE SERUM Negative Normal NEG [facility] Comment on above: Performed By: #### L 501.6900 ####[facility] [address] [place], [address] ACETONE SERUM SMALL Abnormal NEG [facility] Comment on above: Result Comment: RESU LTS CALLED TO [facility] 08/02/24 0107 Jhoana Martínez.REPORT READ BACK BY SAME. Performed By: #### L 501.2450, L501.5200, L500.3400, L700.6800, L500.2500, L501.6900, L503.6005, L100.0100 ####[facility] [address] [place], [address] Basic Metabolic Profile (BMP )on 08-02-2024 BUN Normal 7-18 [facility] Comment on above: Order Comment: Call MD with results STAT Result Comment: @NOT NEEDED BY [place] FIRE CONTROL TECHNICIAN Performed By: #### L 500.2500 ####[facility] [address] [place], [address] BUN/CRE Normal 10-20 [facility] Comment on above: Order Comment: Call MD with results STAT Result Comment: @NOT NEEDED BY [place] FIRE CONTROL TECHNICIAN Performed By: #### L 500.2500 ####[facility] [address] [place], [address] CA,Total Normal 8.5-10.1 [facility] Comment on above: Order Comment: Call MD with results STAT Result Comment: @NOT NEEDED BY ROLANR2 FIRE CONTROL TECHNICIAN Performed By: #### L 500.2500 ####[facility] [address] [place], [address] CL Normal 98-107 [facility] Comment on above: Order Comment: Call MD with results STAT Result Comment: @NOT NEEDED BY ROLANR2 FIRE CONTROL TECHNICIAN Performed By: #### L 500.2500 ####[facility] [address] [place], [address] CO2 Normal 21.0-32.0 [facility] Comment on above: Order Comment: Call MD with results STAT Result Comment: @NOT NEEDED BY PETRONAR2 FIRE CONTROL TECHNICIAN Performed By: #### L 500.2500 ####[facility] [address] [place], [address] CREAT,SERUM Normal 0.55-1.02 [facility] Comment on above: Order Comment: Call MD with results STAT Result Comment: @NOT NEEDED BY ROLANR2 FIRE CONTROL TECHNICIAN Performed By: #### L 500.2500 ####[facility] [address] [place], [address] EST GFR Normal >60 [facility] Comment on above: Order Comment: Call with results STAT Result Comment: @NOT NEEDED BY ROLANR2 FIRE CONTROL TECHNICIAN Performed By: #### L 500.2500 ####[facility] [address] [place], [address] EST GFR - AA Normal >60 [facility] Comment on above: Order Comment: Call MD with results STAT Result Comment: @NOT NEEDED BY TMPETRONAR2 FIRE CONTROL TECHNICIAN Performed By: #### L 500.2500 ####[facility] [address] [place], [address] GAP Normal 5-15 [facility] Comment on above: Order Comment: Call MD with results STAT Result Comment: @NOT NEEDED BY TMPETRONAR2 FIRE CONTROL TECHNICIAN Performed By: #### L 500.2500 ####[facility] [address] [place], [address] GLU Normal 74-106 [facility] Comment on above: Order Comment: Call MD with results STAT Result Comment: @NOT NEEDED BY TMILLER2 FIRE CONTROL TECHNICIAN Performed By: #### L 500.2500 ####[facility] [address] [place], [address] Potassium Normal 3.5-5.1 [facility] Comment on above: Order Comment: Call MD with results STAT Result Comment: @NOT NEEDED BY TMPETRONAR2 FIRE CONTROL TECHNICIAN Performed By: #### L 500.2500 ####[facility] [address] [place], [address] Basic Metabolic Profile (BMP) Normal 136-145 [facility] Comment on above: Order Comment: Call MD with results STAT Result Comment: @NOT NEEDED BY PETRONAR2 FIRE CONTROL TECHNICIAN Performed By: #### L 500.2500 ####[facility] [address] [place], [address] BUN Normal 7-18 [facility] Comment on above: Order Comment: Call MD with results STAT Result Comment: @NOT NEEDED BY TMPETRONAR2 FIRE CONTROL TECHNICIAN Performed By: #### L 500.2500 ####[facility] [address] [place], [address] BUN/CRE Normal 10-20 [facility] Comment on above: Order Comment: Call MD with results STAT Result Comment: @NOT NEEDED BY TMPETRONAR2 FIRE CONTROL TECHNICIAN Performed By: #### L 500.2500 ####[facility] [address] [place], [address] CA,Total Normal 8.5-10.1 [facility] Comment on above: Order Comment: Call MD with results STAT Result Comment: @NOT NEEDED BY TMILLER2 FIRE CONTROL TECHNICIAN Performed By: #### L 500.2500 ####[facility] [address] [place], [address] CL Normal 98-107 [facility] Comment on above: Order Comment: Call MD with results STAT Result Comment: @NOT NEEDED BY ROLANR2 FIRE CONTROL TECHNICIAN Performed By: #### L 500.2500 ####[facility] [address] [place], [address] CO2 Normal 21.0-32.0 [facility] Comment on above: Order Comment: Call MD with results STAT Result Comment: @NOT NEEDED BY ROLANR2 FIRE CONTROL TECHNICIAN Performed By: #### L 500.2500 ####[facility] [address] [place], [address] CREAT,SERUM Normal 0.55-1.02 [facility] Comment on above: Order Comment: Call MD with results STAT Result Comment: @NOT NEEDED BY ROLANR2 FIRE CONTROL TECHNICIAN Performed By: #### L 500.2500 ####[facility] [address] [place], [address] EST GFR Normal >60 [facility] Comment on above: Order Comment: Call MD with results STAT Result Comment: @NOT NEEDED BY ROLANR2 FIRE CONTROL TECHNICIAN Performed By: #### L 500.2500 ####[facility] [address] [place], [address] EST GFR - AA Normal >60 [facility] Comment on above: Order Comment: Call MD with results STAT Result Comment: @NOT NEEDED BY ROLANR2 FIRE CONTROL TECHNICIAN Performed By: #### L 500.2500 ####[facility] [address] [place], [address] GAP Normal 5-15 [facility] Comment on above: Order Comment: Call MD with results STAT Result Comment: @NOT NEEDED BY TMPETRONAR2 FIRE CONTROL TECHNICIAN Performed By: #### L 500.2500 ####[facility] [address] [place], [address] GLU Normal 74-106 [facility] Comment on above: Order Comment: Call MD with results STAT Result Comment: @NOT NEEDED BY ROLANR2 FIRE CONTROL TECHNICIAN Performed By: #### L 500.2500 ####[facility] [address] [place], [address] Potassium Normal 3.5-5.1 [facility] Comment on above: Order Comment: Call MD with results STAT Result Comment: @NOT NEEDED BY TMPETRONAR2 FIRE CONTROL TECHNICIAN Performed By: #### L 500.2500 ####[facility] [address] [place], [address] Basic Metabolic Profile (BMP) Normal 136-145 [facility] Comment on above: Order Comment: Call MD with results STAT Result Comment: @NOT NEEDED BY ROLANR2 FIRE CONTROL TECHNICIAN Performed By: #### L 500.2500 ####[facility] [address] [place], [address] BUN/CRE 11.7 RATIO Normal 10-20 [facility] Comment on above: Order Comment: Call MD with results STAT Performed By: #### L 500.2500 ####[facility] [address] [place], [address] CA,Total 7.7 mg/dL Low 8.5-10.1 [facility] Comment on above: Order Comment: Call MD with results STAT Performed By: #### L 500.2500 ####[facility] [address] [place], [address] Chloride [Moles/Vol] 116 mmol/L High 98-107 [facility] Comment on above: Order Comment: Call MD with results STAT Performed By: #### L 500.2500 ####[facility] [address] [place], [address] CO2 [Moles/Vol] 21.0 mmol/L Normal 21.0-32.0 [facility] Comment on above: Order Comment: Call MD with results STAT Performed By: #### L 500.2500 ####[facility] [address] [place], [address] Creatinine [Mass/Vol] 0.68 mg/dL Normal 0.55-1.02 [facility] Comment on above: Order Comment: Call MD with results STAT Result Comment: The validity of the calculated GFR GFRAA in patients over70 years has not been determined. Clinical correlation isessential. Performed By: #### L 500.2500 ####[facility] [address] [place], [address] ECRCL 126.42 ml/min Normal [facility] Comment on above: Order Comment: Call MD with results STAT Performed By: #### L 500.2500 ####[facility] [address] [place], [address] EST GFR - AA 130 mL/min Normal >60 [facility] Comment on above: Order Comment: Call MD with results STAT Result Comment: Afri can Botswanan GFR Calc Performed By: #### L 500.2500 ####[facility] [address] [place], [address] GAP 5 Normal 5-15 [facility] Comment on above: Order Comment: Call MD with results STAT Performed By: #### L 500.2500 ####[facility] [address] [place], [address] GFR/1.73 sq M.predicted among non-blacks MDRD (S/P/Bld) [Vol rate/Area] 107 mL/min/{1.73_m2} Normal >60 [facility] Comment on above: Order Comment: Call MD with results STAT Result Comment: Non- GFR Calc Performed By: #### L 500.2500 ####[facility] [address] [place], [address] Glucose [Mass/Vol] 116 mg/dL High 74-106 [facility] Comment on above: Order Comment: Call MD with results STAT Result Comment: Fast ing Glucose result from 100 to 125 mg/dLsuggests IMPAIRED HOMEOSTASIS per A.D.A. criteria. Performed By: #### L 500.2500 ####[facility] [address] [place], [address] Potassium [Moles/Vol] 3.8 mmol/L Normal 3.5-5.1 [facility] Comment on above: Order Comment: Call MD with results STAT Performed By: #### L 500.2500 ####[facility] [address] [place], [address] Sodium [Moles/Vol] 141 mmol/L Normal 136-145 [facility] Comment on above: Order Comment: Call MD with results STAT Performed By: #### L 500.2500 ####[facility] [address] [place], [address] Urea nitrogen [Mass/Vol] 8 mg/dL Normal 7-18 [facility] Comment on above: Order Comment: Call MD with results STAT Performed By: #### L 500.2500 ####[facility] [address] [place], [address] BUN Normal 7-18 [facility] Comment on above: Order Comment: Call MD with results STAT Result Comment: NO S PECIMEN DRAWN Performed By: #### L 500.2500 ####[facility] [address] [place], [address] BUN/CRE Normal 10-20 [facility] Comment on above: Order Comment: Call MD with results STAT Result Comment: NO S PECIMEN DRAWN Performed By: #### L 500.2500 ####[facility] [address] [place], [address] CA,Total Normal 8.5-10.1 [facility] Comment on above: Order Comment: Call MD with results STAT Result Comment: NO S PECIMEN DRAWN Performed By: #### L 500.2500 ####[facility] [address] [place], [address] CL Normal 98-107 [facility] Comment on above: Order Comment: Call MD with results STAT Result Comment: NO S PECIMEN DRAWN Performed By: #### L 500.2500 ####[facility] [address] [place], [address] CO2 Normal 21.0-32.0 [facility] Comment on above: Order Comment: Call MD with results STAT Result Comment: NO S PECIMEN DRAWN Performed By: #### L 500.2500 ####[facility] [address] [place], [address] CREAT,SERUM Normal 0.55-1.02 [facility] Comment on above: Order Comment: Call MD with results STAT Result Comment: NO S PECIMEN DRAWN Performed By: #### L 500.2500 ####[facility] [address] [place], [address] EST GFR Normal >60 [facility] Comment on above: Order Comment: Call MD with results STAT Result Comment: NO S PECIMEN DRAWN Performed By: #### L 500.2500 ####[facility] [address] [place], [address] EST GFR - AA Normal >60 [facility] Comment on above: Order Comment: Call MD with results STAT Result Comment: NO S PECIMEN DRAWN Performed By: #### L 500.2500 ####[facility] [address] [place], [address] GAP Normal 5-15 [facility] Comment on above: Order Comment: Call MD with results STAT Result Comment: NO S PECIMEN DRAWN Performed By: #### L 500.2500 ####[facility] [address] [place], [address] GLU Normal 74-106 [facility] Comment on above: Order Comment: Call MD with results STAT Result Comment: NO S PECIMEN DRAWN Performed By: #### L 500.2500 ####[facility] [address] [place], [address] Potassium Normal 3.5-5.1 [facility] Comment on above: Order Comment: Call MD with results STAT Result Comment: NO S PECIMEN DRAWN Performed By: #### L 500.2500 ####[facility] [address] [place], [address] Basic Metabolic Profile (BMP) Normal 136-145 [facility] Comment on above: Order Comment: Call MD with results STAT Result Comment: NO S PECIMEN DRAWN Performed By: #### L 500.2500 ####[facility] [address] [place], [address] BUN Normal 7-18 [facility] Comment on above: Order Comment: Call MD with results STAT Result Comment: NO S PECIMEN DRAWN Performed By: #### L 501.9985, L500.2500 ####[facility] [address] [place], [address] BUN/CRE Normal 10-20 [facility] Comment on above: Order Comment: Call MD with results STAT Result Comment: NO S PECIMEN DRAWN Performed By: #### L 501.9985, L500.2500 ####[facility] [address] [place], [address] CA,Total Normal 8.5-10.1 [facility] Comment on above: Order Comment: Call MD with results STAT Result Comment: NO S PECIMEN DRAWN Performed By: #### L 501.9985, L500.2500 ####[facility] [address] [place], [address] CL Normal 98-107 [facility] Comment on above: Order Comment: Call MD with results STAT Result Comment: NO S PECIMEN DRAWN Performed By: #### L 501.9985, L500.2500 ####[facility] [address] [place], [address] CO2 Normal 21.0-32.0 [facility] Comment on above: Order Comment: Call MD with results STAT Result Comment: NO S PECIMEN DRAWN Performed By: #### L 501.9985, L500.2500 ####[facility] [address] [place], [address] CREAT,SERUM Normal 0.55-1.02 [facility] Comment on above: Order Comment: Call MD with results STAT Result Comment: NO S PECIMEN DRAWN Performed By: #### L 501.9985, L500.2500 ####[facility] [address] [place], [address] EST GFR Normal >60 [facility] Comment on above: Order Comment: Call MD with results STAT Result Comment: NO S PECIMEN DRAWN Performed By: #### L 501.9985, L500.2500 ####[facility] [address] [place], [address] EST GFR - AA Normal >60 [facility] Comment on above: Order Comment: Call MD with results STAT Result Comment: NO S PECIMEN DRAWN Performed By: #### L 501.9985, L500.2500 ####[facility] [address] [place], [address] GAP Normal 5-15 [facility] Comment on above: Order Comment: Call MD with results STAT Result Comment: NO S PECIMEN DRAWN Performed By: #### L 501.9985, L500.2500 ####[facility] [address] [place], [address] GLU Normal 74-106 [facility] Comment on above: Order Comment: Call MD with results STAT Result Comment: NO S PECIMEN DRAWN Performed By: #### L 501.9985, L500.2500 ####[facility] [address] [place], [address] Potassium Normal 3.5-5.1 [facility] Comment on above: Order Comment: Call MD with results STAT Result Comment: NO S PECIMEN DRAWN Performed By: #### L 501.9985, L500.2500 ####[facility] [address] [place], [address] Basic Metabolic Profile (BMP) Normal 136-145 [facility] Comment on above: Order Comment: Call MD with results STAT Result Comment: NO S PECIMEN DRAWN Performed By: #### L 501.9985, L500.2500 ####[facility] [address] [place], [address] BUN/CRE 16.6 RATIO Normal 10-20 [facility] Comment on above: Performed By: #### L 501.2450, L501.5200, L500.3400, L700.6800, L500.2500, L501.6900, L503.6005, L100.0100 ####[facility] [address] [place], [address] CA,Total 8.9 mg/dL Normal 8.5-10.1 [facility] Comment on above: Performed By: #### L 501.2450, L501.5200, L500.3400, L700.6800, L500.2500, L501.6900, L503.6005, L100.0100 ####[facility] [address] [place], [address] Chloride [Moles/Vol] 107 mmol/L Normal 98-107 [facility] Comment on above: Performed By: #### L 501.2450, L501.5200, L500.3400, L700.6800, L500.2500, L501.6900, L503.6005, L100.0100 ####[facility] [address] [place], [address] CO2 [Moles/Vol] 17.0 mmol/L Low 21.0-32.0 [facility] Comment on above: Performed By: #### L 501.2450, L501.5200, L500.3400, L700.6800, L500.2500, L501.6900, L503.6005, L100.0100 ####[facility] [address] [place], [address] Creatinine [Mass/Vol] 0.84 mg/dL Normal 0.55-1.02 [facility] Comment on above: Result Comment: The validity of the calculated GFR GFRAA in patients over70 years has not been determined. Clinical correlation isessential. Performed By: #### L 501.2450, L501.5200, L500.3400, L700.6800, L500.2500, L501.6900, L503.6005, L100.0100 ####[facility] [address] [place], [place], [id number] ECRCL 102.34 ml/min Normal [facility] Comment on above: Performed By: #### L 501.2450, L501.5200, L500.3400, L700.6800, L500.2500, L501.6900, L503.6005, L100.0100 ####[facility] [address] [place], [address] EST GFR - AA 102 mL/min Normal >60 [facility] Comment on above: Result Comment: Afri can Bots[place] GFR Calc Performed By: #### L 501.2450, L501.5200, L500.3400, L700.6800, L500.2500, L501.6900, L503.6005, L100.0100 ####[facility] [address] [place], [address] GAP 14 Normal 5-15 [facility] Comment on above: Performed By: #### L 501.2450, L501.5200, L500.3400, L700.6800, L500.2500, L501.6900, L503.6005, L100.0100 ####[facility] [address] [place], [address] GFR/1.73 sq M.predicted among non-blacks MDRD (S/P/Bld) [Vol rate/Area] 84 mL/min/{1.73_m2} Normal >60 [facility] Comment on above: Result Comment: Non- GFR Calc Performed By: #### L 501.2450, L501.5200, L500.3400, L700.6800, L500.2500, L501.6900, L503.6005, L100.0100 ####[facility] [address] [place], [address] Glucose [Mass/Vol] 253 mg/dL High 74-106 [facility] Comment on above: Result Comment: Gluc ose result greater than or equal to 200 mg/dLsuggests DIABETES MELLITUS per A.D.A. criteria. Performed By: #### L 501.2450, L501.5200, L500.3400, L700.6800, L500.2500, L501.6900, L503.6005, L100.0100 ####[facility] [address] [place], [address] Potassium [Moles/Vol] 3.4 mmol/L Low 3.5-5.1 [facility] Comment on above: Performed By: #### L 501.2450, L501.5200, L500.3400, L700.6800, L500.2500, L501.6900, L503.6005, L100.0100 ####[facility] [address] [place], [address] Sodium [Moles/Vol] 139 mmol/L Normal 136-145 [facility] Comment on above: Performed By: #### L 501.2450, L501.5200, L500.3400, L700.6800, L500.2500, L501.6900, L503.6005, L100.0100 ####[facility] [address] [place], [address] Urea nitrogen [Mass/Vol] 14 mg/dL Normal 7-18 [facility] Comment on above: Performed By: #### L 501.2450, L501.5200, L500.3400, L700.6800, L500.2500, L501.6900, L503.6005, L100.0100 ####[facility] [address] [place], [address] Bedside Glucoseon 08-02-2024 FINGERSTICK GLU 246 mg/dL High 74-106 [facility] Comment on above: Result Comment: EDGAR GEMENT OF PATIENT CARE PER NURSING PROTOCOL Performed By: #### L 501.080 ####[facility] [address] [place], [address] FINGERSTICK GLU 77 mg/dL Normal 74-106 [facility] Comment on above: Result Comment: EDGAR GEMENT OF PATIENT CARE PER NURSING PROTOCOL Performed By: #### L 501.080 ####[facility] [address] [place], [address] FINGERSTICK GLU 90 mg/dL Normal 74-106 [facility] Comment on above: Result Comment: EDGAR GEMENT OF PATIENT CARE PER NURSING PROTOCOL Performed By: #### L 501.080 ####[facility] [address] [place], [address] FINGERSTICK GLU 163 mg/dL High 74-106 [facility] Comment on above: Result Comment: EDGAR GEMENT OF PATIENT CARE PER NURSING PROTOCOL Performed By: #### L 501.080 ####[facility] [address] [place], [address] FINGERSTICK GLU 102 mg/dL Normal 74-106 [facility] Comment on above: Result Comment: EDGAR GEMENT OF PATIENT CARE PER NURSING PROTOCOL Performed By: #### L 501.080 ####[facility] [address] [place], [address] FINGERSTICK GLU 147 mg/dL High 74-106 [facility] Comment on above: Result Comment: EDGAR GEMENT OF PATIENT CARE PER NURSING PROTOCOL Performed By: #### L 501.080 ####[facility] [address] [place], [address] FINGERSTICK GLU 83 mg/dL Normal 74-106 [facility] Comment on above: Result Comment: EDGAR GEMENT OF PATIENT CARE PER NURSING PROTOCOL Performed By: #### L 501.080 ####[facility] [address] [place], [address] FINGERSTICK GLU 121 mg/dL High 74-106 [facility] Comment on above: Result Comment: EDGAR GEMENT OF PATIENT CARE PER NURSING PROTOCOL Performed By: #### L 501.080 ####[facility] [address] [place], [address] FINGERSTICK GLU 95 mg/dL Normal 74-106 [facility] Comment on above: Result Comment: EDGAR GEMENT OF PATIENT CARE PER NURSING PROTOCOL Performed By: #### L 501.080 ####[facility] [address] [place], [address] FINGERSTICK GLU 123 mg/dL High 74-106 [facility] Comment on above: Result Comment: EDGAR GEMENT OF PATIENT CARE PER NURSING PROTOCOL Performed By: #### L 501.080 ####[facility] [address] [place], [address] FINGERSTICK GLU 147 mg/dL High 74-106 [facility] Comment on above: Result Comment: EDGAR GEMENT OF PATIENT CARE PER NURSING PROTOCOL Performed By: #### L 501.080 ####[facility] [address] [place], [address] FINGERSTICK GLU 263 mg/dL High 74-106 [facility] Comment on above: Result Comment: EDGAR GEMENT OF PATIENT CARE PER NURSING PROTOCOL Performed By: #### L 501.080 ####[facility] [address] [place], [address] FINGERSTICK GLU 251 mg/dL High 74-106 [facility] Comment on above: Result Comment: EDGAR GEMENT OF PATIENT CARE PER NURSING PROTOCOL Performed By: #### L 501.080 ####[facility] [address] [place], [address] CBC W/Diff, Automatedon 12-0 -2023 Absolute Lymph 1.00 X10 3/uL Normal 0.83-4.51 [facility] Comment on above: Performed By: #### L 501.2450, L501.5200, L500.3400, L700.6800, L500.2500, L501.6900, L503.6005, L100.0100 ####[facility] [address] [place], [address] Absolute Neut 11.9 X10 3/uL High 2.0-7.7 [facility] Comment on above: Performed By: #### L 501.2450, L501.5200, L500.3400, L700.6800, L500.2500, L501.6900, L503.6005, L100.0100 ####[facility] [address] [place], [address] Basophils/100 WBC (Bld) 0.2 % Normal 0-1 [facility] Comment on above: Performed By: #### L 501.2450, L501.5200, L500.3400, L700.6800, L500.2500, L501.6900, L503.6005, L100.0100 ####[facility] [address] [place], [address] Eosinophils/100 WBC (Bld) 0.0 % Normal 0-5 [facility] Comment on above: Performed By: #### L 501.2450, L501.5200, L500.3400, L700.6800, L500.2500, L501.6900, L503.6005, L100.0100 ####[facility] [address] [place], [place], [id number](034) Erythrocyte distribution width (RBC) [Ratio] 12.3 % Normal 11.6-14.6 [facility] Comment on above: Performed By: #### L 501.2450, L501.5200, L500.3400, L700.6800, L500.2500, L501.6900, L503.6005, L100.0100 ####[facility] [address] [facility] [place], [address](052) Hematocrit (Bld) [Volume fraction] 38.3 % Normal 37-47 [facility] Comment on above: Performed By: #### L 501.2450, L501.5200, L500.3400, L700.6800, L500.2500, L501.6900, L503.6005, L100.0100 ####[facility] [address] [place], [address] Hemoglobin (Bld) [Mass/Vol] 13.0 g/dL Normal 12.0-15.0 [facility] Comment on above: Performed By: #### L 501.2450, L501.5200, L500.3400, L700.6800, L500.2500, L501.6900, L503.6005, L100.0100 ####[facility] [address] [place], [address] IG% 0.600 Normal 0.0-0.9 [facility] Comment on above: Result Comment: IG% - Immature Granulocytes (promyelocytes, myelocytes andmetamyelocytes) > 1% indicates that a LEFT SHIFT is Present. Performed By: #### L 501.2450, L501.5200, L500.3400, L700.6800, L500.2500, L501.6900, L503.6005, L100.0100 ####[facility] [address] [place], [address] Lymphocytes/100 WBC (Bld) 7.5 % Low 19-41 [facility] Comment on above: Performed By: #### L 501.2450, L501.5200, L500.3400, L700.6800, L500.2500, L501.6900, L503.6005, L100.0100 ####[facility] [address] [place], [address] MCH (RBC) [Entitic mass] 29.7 pg Normal 27.0-32.0 [facility] Comment on above: Performed By: #### L 501.2450, L501.5200, L500.3400, L700.6800, L500.2500, L501.6900, L503.6005, L100.0100 ####[facility] [address] [place], [address] MCHC (RBC) [Mass/Vol] 33.9 g/dL Normal 32-36 [facility] Comment on above: Performed By: #### L 501.2450, L501.5200, L500.3400, L700.6800, L500.2500, L501.6900, L503.6005, L100.0100 ####[facility] [address] [place], [address] MCV (RBC) [Entitic vol] 87.6 fL Normal 81-99 [facility] Comment on above: Performed By: #### L 501.2450, L501.5200, L500.3400, L700.6800, L500.2500, L501.6900, L503.6005, L100.0100 ####[facility] [address] [place], [address] Monocytes/100 WBC (Bld) 2.8 % Normal 0-10 [facility] Comment on above: Performed By: #### L 501.2450, L501.5200, L500.3400, L700.6800, L500.2500, L501.6900, L503.6005, L100.0100 ####[facility] [address] [place], [address] Neutrophils/100 WBC (Bld) 88.9 % High 47-70 [facility] Comment on above: Performed By: #### L 501.2450, L501.5200, L500.3400, L700.6800, L500.2500, L501.6900, L503.6005, L100.0100 ####[facility] [address] [place], [address] Nucleated RBC (Bld) [#/Vol] 0 10*3/uL Normal 0-5 [facility] Comment on above: Performed By: #### L 501.2450, L501.5200, L500.3400, L700.6800, L500.2500, L501.6900, L503.6005, L100.0100 ####[facility] [address] [place], [address] Platelet mean volume (Bld) [Entitic vol] 13.0 fL High 6.2-12.0 [facility] Comment on above: Performed By: #### L 501.2450, L501.5200, L500.3400, L700.6800, L500.2500, L501.6900, L503.6005, L100.0100 ####[facility] [address] [place], [address] Platelets (Bld) [#/Vol] 169 10*3/uL Normal 150-450 [facility] Comment on above: Performed By: #### L 501.2450, L501.5200, L500.3400, L700.6800, L500.2500, L501.6900, L503.6005, L100.0100 ####[facility] [address] [place], [address] RBC (Bld) [#/Vol] 4.37 10*6/uL Normal 4.2-5.4 [facility] Comment on above: Performed By: #### L 501.2450, L501.5200, L500.3400, L700.6800, L500.2500, L501.6900, L503.6005, L100.0100 ####[facility] [address] [place], [address] RDW SD 39.6 fl Normal 35.1-43.9 [facility] Comment on above: Performed By: #### L 501.2450, L501.5200, L500.3400, L700.6800, L500.2500, L501.6900, L503.6005, L100.0100 ####[facility] [address] [place], [address] WBC (Bld) [#/Vol] 13.4 10*3/uL High 4.4-11.0 [facility] Comment on above: Performed By: #### L 501.2450, L501.5200, L500.3400, L700.6800, L500.2500, L501.6900, L503.6005, L100.0100 ####[facility] [address] [place], [place], [address] Emergency Department Summary on 08-02-2024 Emergency Department Summary Normal [facility] H AND P Exam - Hospitaliston 08-02-2024 H&P Exam - Hospitalist Normal [facility] Hemoglobin A1con 08-02-2024 HbA1c (Bld) [Mass fraction] 7.9 % High 3.8-5.6 [facility] Comment on above: Result Comment: Norm al < 5.7 % Prediabetic 5.7 - 6.4 % Diabetic >or= 6.5 % Please note range changes. Performed By: #### L 501.9985, L500.2500 ####[facility] [address] [place], [address] Kidney and Bladderon 024 Kidney and Bladder Normal [facility] Lactic Acidon 08-02-2024 Lactate [Moles/Vol] 1.4 mmol/L Normal 0.4-1.9 [facility] Comment on above: Performed By: #### L 503.6005 ####[facility] [address] [place], [address] Lactate [Moles/Vol] 0.9 mmol/L Normal 0.4-1.9 [facility] Comment on above: Order Comment: Y Performed By: #### L 503.6005 ####[facility] [address] [place], [address] Lactate [Moles/Vol] 2.2 mmol/L Invalid Interpretation Code 0.4-1.9 [facility] Comment on above: Order Comment: Y Result Comment: Crit ical Result(s) Called at: 01:06:13 08/02/2024 by:Jhoana Martínez lforrestResults read back by same. Performed By: #### L 501.2450, L501.5200, L500.3400, L700.6800, L500.2500, L501.6900, L503.6005, L100.0100 ####[facility] [address] [place], [address] Lipaseon 08-02-2024 Lipase [Catalytic activity/Vol] U/L Low 13-75 [facility] Comment on above: Result Comment: Sulma schmitz note:LIPASE revised reference range effective 22.New Lipase methodology. Expected to produce lower valuesthan the previous assay method.NEW Reference Range: 13 - 75 U/L Performed By: #### L 501.2450, L501.5200, L500.3400, L700.6800, L500.2500, L501.6900, L503.6005, L100.0100 ####[facility] [address] [place], [address] Liver Profileon 08-02-2024 Albumin [Mass/Vol] 4.1 g/dL Normal 3.2-5.0 [facility] Comment on above: Performed By: #### L 501.2450, L501.5200, L500.3400, L700.6800, L500.2500, L501.6900, L503.6005, L100.0100 ####[facility] [address] [place], [address] ALK P 78 U/L Normal 45-117 [facility] Comment on above: Performed By: #### L 501.2450, L501.5200, L500.3400, L700.6800, L500.2500, L501.6900, L503.6005, L100.0100 ####[facility] [address] [place], [address] ALT [Catalytic activity/Vol] 15 U/L Normal 13-56 [facility] Comment on above: Performed By: #### L 501.2450, L501.5200, L500.3400, L700.6800, L500.2500, L501.6900, L503.6005, L100.0100 ####[facility] [address] [place], [address] AST [Catalytic activity/Vol] 13 U/L Low 15-37 [facility] Comment on above: Performed By: #### L 501.2450, L501.5200, L500.3400, L700.6800, L500.2500, L501.6900, L503.6005, L100.0100 ####[facility] [address] [place], [address] Bilirubin [Mass/Vol] 1.20 mg/dL High 0.20-1.00 [facility] Comment on above: Result Comment: For patients on eltrombopag therapy, use of Dimension Hale TBIL is not recommended. Performed By: #### L 501.2450, L501.5200, L500.3400, L700.6800, L500.2500, L501.6900, L503.6005, L100.0100 ####[facility] [address] [place], [address] Bilirubin.direct [Mass/Vol] 0.38 mg/dL High 0.00-0.30 [facility] Comment on above: Performed By: #### L 501.2450, L501.5200, L500.3400, L700.6800, L500.2500, L501.6900, L503.6005, L100.0100 ####[facility] [address] [place], [address] Globulin (S) [Mass/Vol] 3.3 g/dL Normal 2.2-4.2 [facility] Comment on above: Performed By: #### L 501.2450, L501.5200, L500.3400, L700.6800, L500.2500, L501.6900, L503.6005, L100.0100 ####[facility] [address] [place], [address] T PROT 7.4 g/dL Normal 6.4-8.2 [facility] Comment on above: Performed By: #### L 501.2450, L501.5200, L500.3400, L700.6800, L500.2500, L501.6900, L503.6005, L100.0100 ####[facility] [address] [place], [address] Magnesiumon 08-02-2024 Magnesium [Mass/Vol] 2.5 mg/dL Normal 1.6-2.6 [facility] Comment on above: Performed By: #### L 501.2300, L501.5200 ####[facility] [address] [place], [address] Magnesium [Mass/Vol] 1.5 mg/dL Low 1.6-2.6 [facility] Comment on above: Performed By: #### L 501.2450, L501.5200, L500.3400, L700.6800, L500.2500, L501.6900, L503.6005, L100.0100 ####[facility] [address] [place], [address] Phosphoruson 08-02-2024 Phosphate [Mass/Vol] 2.2 mg/dL Low 2.5-4.9 [facility] Comment on above: Performed By: #### L 501.2300, L501.5200 ####[facility] [address] [place], [address] ,Serum,hCG Quali.on 08-02-2024 HCG, SERUM QUAL Negative Normal [facility] Comment on above: Performed By: #### L 501.2450, L501.5200, L500.3400, L700.6800, L500.2500, L501.6900, L503.6005, L100.0100 ####[facility] [address] [place], [address] Urinalysis, Completeon 08-02 BACTERIA 1+ /hpf Normal None Seen [facility] Comment on above: Order Comment: CLEAN CATCH Performed By: #### L 400.0001 ####[facility] [address] [place], [address] EPI,SQUAMOUS 0-5 SEEN Normal 5-10 [facility] Comment on above: Order Comment: CLEAN CATCH Performed By: #### L 400.0001 ####[facility] [address] [place], [address] WBC 0-5 SEEN Normal 0-5 [facility] Comment on above: Order Comment: CLEAN CATCH Performed By: #### L 400.0001 ####[facility] [address] [place], [address] Mucus Ql (Urine sed) 0 SEEN Normal [facility] Comment on above: Order Comment: CLEAN CATCH Performed By: #### L 400.0001 ####[facility] [address] [place], [address] RBC 0 SEEN Normal 0-5 [facility] Comment on above: Order Comment: CLEAN CATCH Performed By: #### L 400.0001 ####[facility] [address] [facility] [address] Urine Drug Screen (VISTA)on 08-02-2024 AMPHETAMINES Negative Normal <1000 ng/mL [facility] Comment on above: Performed By: #### L 505.5000 ####[facility] [address] [place], [address] BARBITIURATES Negative Normal < 200 ng/mL [facility] Comment on above: Performed By: #### L 505.5000 ####[facility] [address] [facility] [address] BENZODIAZIPINE Negative Normal < 200 ng/mL [facility] Comment on above: Performed By: #### L 505.5000 ####[facility] [address] [facility] [address] COCAINE Negative Normal < 300 ng/mL [facility] Comment on above: Performed By: #### L 505.5000 ####[facility] [address] [place] [id number] ECSTACY Negative Normal < 500 ng/mL [facility] Comment on above: Performed By: #### L 505.5000 ####[facility] [address] [place], [address] METHADONE Negative Normal < 300 ng/mL [facility] Comment on above: Performed By: #### L 505.5000 ####[facility] [address] [place], [address] OPIATES Negative Normal < 300 ng/mL [facility] Comment on above: Performed By: #### L 505.5000 ####[facility] [address] [place], [address] PCP Negative Normal < 25 ng/mL [facility] Comment on above: Performed By: #### L 505.5000 ####[facility] [address] [place], [address] THC Positive Abnormal < 50 ng/mL [facility] Comment on above: Performed By: #### L 505.5000 ####[facility] [address] [place], [address] VISTA UDS PH 5 Normal [facility] Comment on above: Performed By: #### L 505.5000 ####[facility] [address] [place], [address] Venous Blood Gason 4 Blood Gas Type ISABELLE Normal [facility] Comment on above: Performed By: #### L 9000.0810 ####[facility] [address] [place], [address] CO2 [Moles/Vol] 17 mmol/L Low 23-33 [facility] Comment on above: Performed By: #### L 9000.0810 ####[facility] [address] [place], [address] HCO3 (Bld) [Moles/Vol] 16 mmol/L Low 22-26 [facility] Comment on above: Performed By: #### L 9000.0810 ####[facility] [address] [place], [address] O2 Delivery Dev Room Air Normal [facility] Comment on above: Performed By: #### L 9000.0810 ####[facility] [address] [place], [address] SITE Not entered [facility] Comment on above: Performed By: #### L 9000.0810 ####[facility] [address] [place], [address] VBG BE -9 mmol/L Low -1.0-3.5 [facility] Comment on above: Performed By: #### L 9000.0810 ####[facility] [address] [place], [address] VBG pCO2 28.0 mmHg Low 41-51 [facility] Comment on above: Performed By: #### L 9000.0810 ####[facility] [address] [place], [address] VBG pH 7.38 Normal 7.32-7.42 [facility] Comment on above: Performed By: #### L 9000.0810 ####[facility] [address] [place], [address] VBG PO2 46 mmHg High 25-40 [facility] Comment on above: Performed By: #### L 9000.0810 ####[facility] [address] [place], [address] VBG SO2 82 High 50-70 [facility] Comment on above: Performed By: #### L 9000.0810 ####[facility] [address] [place], [address] Chest PA and Lateralon 12-05 -2024 Chest PA and Lateral Normal [facility] Emergency Department Summary on 08-01-2024 Emergency Department Summary Normal [facility] CNNURSEon 07-23-2024 CNNURSE Nurse Visit (ENDIMT) KATHLEEN VILLA ([id number]) 1995 F CHT Date Time Provider Department 07/23/24 9:00 AM VAMSI CARSON During your visit today, we recorded the following information about you: Vamsi Carson RN 07/23/2024 9:04 AM Signed DIABETES CARE AND EDUCATION VISIT Location: [place] Type of visit: In person individual PATIENT'S [...] TIME: 8:47 AM Referring Provider: KVNG LEWIS [[id number]] Allergies As of Date: 07/23/2024 Noted Allergy [...] Date Reviewed: 07/19/2024 Reviewed by: Jessica Guerrero APRN.SUPERVISOR AGRICULTURAL EDUCATION - Fully Assessed Visit Diagnoses:Type 1 diabetes mellitus with hyperglycemia, with long-term current use of insulin ([facility]) [E10.65] Insulin pump status [Z96.41] Order(s):CONSULT TO DIABETES EDUCATION DSME [[id number]] Order #: [id number]: 2 Prescriptions as of 07/23/2024 - Acetone, [...] Units subcutaneously every 24 hours. - Insulin Glendive, Disposable, (PEN NEEDLE) 32 gauge x 5/32 [...] (post-traumatic stress disorder) [F43.10] 12/25/2012 DVT prophylaxis [QSK2776] 12/25/2012 09/04/2013 DISPOSITION AND FOLLOW-UP [V999.01] 12/25/2012 09/04/2013 HTN (hypertension) [I10] Hypertension in , antepartum [O16.9] 09/19/2013 01/08/2014 GBS (group B Streptococcus mesa (more content not included)... Normal [facility] Dipak 07-19-2024 GIOVANA Telephone (QAMAR) DAISY,KATHLEEN L ([id number]) 1995 F CHT Date Time Provider Department 07/19/24 JESSICA GUERRERO During your visit today, we recorded the following information about you: Lisa Aguialr LPN 07/19/2024 3:45 PM Signed Jessica Guerrero APRN.FRIEDA Garrido Ma Pool She was able to get upgraded pump recently. I am sending her to [facility] and [employer] to start. She will need new supplies from [facility] including Guardian 4 CGM and supplies for Medtr[employer] 780 G. Jessica Guerrero APRN.SUPERVISOR AGRICULTURAL EDUCATION Lisa Aguilar LPN 07/24/2024 2:00 PM Signed [...] Date Reviewed: 07/19/2024 Reviewed by: Jessica Guerrero APRN.SUPERVISOR AGRICULTURAL EDUCATION - Fully Assessed Prescriptions as of 07/30/2024 [...] Units subcutaneously every 24 hours. 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 Normal [facility] C. trachomatis+N. gonorrhoea e DNA DANIEL+probe Ql (Unsp spec)on 07-10-2024 C. trachomatis rRNA DANIEL+probe Ql (Unsp spec) Negative Normal Negative for Chlamydia trachomatis by amplificaton [facility] Comment on above: Order Comment: Speci men Type: SWABOrdering Facility: [facility] Address: [address] [place] [address] Performed By: #### T RVAMP, 37032-3 ####[facility] LABCLIA [id number] [address] [place] N. gonorrhoeae rRNA DANIEL+probe Ql (Unsp spec) Negative Normal Negative for Neisseria gonorrhoeae by amplification [facility] Comment on above: Order Comment: Speci men Type: SWABOrdering Facility: [facility] Address: [address] [place] [address] Performed By: #### T RVAMP, 63330-5 ####[facility] LABCLIA [id number] [address] [place] CNOVon 07-10-2024 CNOV Office Visit (OBGYWM ) KATHLEEN VILLA ([id number]) 1995 F T Date Time Provider Department [...] L2 SAB0 IAB0 Ectopic0 Multiple0 Live Births2 [place] History LMP: 11/26/2022 (Exact Date), Having periods Age at Menarche: 12 Age at First : Age at Menopause: [place] History Comments: Sexual Activity: Yes; Male Contraception: [...] discussed with the Patient or Patient's Authorized Crusher Setter. As applicable, any other physician, advance practice provider, medical student, or other health professional student that will be observing or involved in the sensitive examination for educational or training purposes was discussed with the Patient or Authorized Crusher Setter. The Patient or Authorized Crusher Setter has agreed to proceed with the sensitive [...] external genitalia normal, normal Bartholin's glands, urethra, Dowell's glands, no vulvar lesions, no cervical lesions, good vaginal support, physiologic discharge present, normal appearing perineal body and perianal region BIMANUAL: uterus normal size, shape and consistency, no adnexal masses, and non-tender ASSESSMENT/PLAN: 1) Health maintenance:Bisexual Pap done with reflex H (more content not included)... Normal [facility] HCV RNA DANIEL+probe Qnon 07-10 HCV RNA DANIEL+probe Ql Not detected Normal Not detected [facility] Comment on above: Order Comment: Speci men Type: BLOOD SPECIMENOrdering Facility: [facility] Address: [address] [place] [address] Performed By: #### 1 1011-4 ####[facility] LABCLIA [id number] [place] [address] [place] HIGH RISK HUMAN PAPILLOMA DERECK (HPV), PCR FOR DETECTION AND GENOTYPINGon 07-10-2024 HPV 16 Ag Ql (Unsp spec) Not detected Normal Not detected [facility] Comment on above: Order Comment: Speci men Type: FLUID SPECIMENOrdering Facility: [facility] Address: [address] [place] [address] Performed By: #### H PVHRT ####[facility] LABIA [id number] [place] [address] [place] HPV 18 Ag Ql (Unsp spec) Not detected Normal Not detected [facility] Comment on above: Order Comment: Speci men Type: FLUID SPECIMENOrdering Facility: [facility] Address: [address] [place] [address] Performed By: #### H PVHRT ####[facility] [id number] [place] [address] [place] HPV 31+33+35+39+45+51+52+5 6+58+59+66+68 DNA DANIEL+probe Ql (Cvx) Not detected Normal Not detected [facility] Comment on above: Order Comment: Speci men Type: FLUID SPECIMENOrdering Facility: [facility] Address: [address] [place] [address] Result Comment: High Risk HPV Other Type includes HPV types 31, 33, 35, 39, 45, 51, 52, 56, 58, 59, 66 and 68. Performed By: #### H PVHRT ####[facility] [id number] [place] [address] [place] HIV 1+2 Ab IA Qlon HIV 1 and 2 Ab IA.rapid Nom (S/P/Bld) Normal [facility] Comment on above: Order Comment: Speci men Type: BLOOD SPECIMENOrdering Facility: [facility] Address: [address] [place] [address] Result Comment: Test not indicated. Performed By: #### 3 1201-7, 22920-5 ####[facility] LABCLIA [id number] [place] [address] [place] HIV 1+2 Ab+HIV1 p24 Ag IA Ql Non-Reactive Normal Nonreactive [facility] Comment on above: Order Comment: Speci men Type: BLOOD SPECIMENOrdering Facility: [facility] Address: [address] [place] [address] Performed By: #### 3 1201-7, 67890-0 ####[facility] LABCLIA [id number] [place] [address] [place] HIV immunoassay testing algorithm interpretation (S/P/Bld) [Interp] Normal [facility] Comment on above: Order Comment: Speci men Type: BLOOD SPECIMENOrdering Facility: [facility] Address: [address] [place] [address] Result Comment: No e vidence of HIV-1 or HIV-2 infection. Should recent infection be suspected, repeat testing may be considered 2-3 weeks after this draw. [place] Rev. Code 3701.243(E): This information has been [...] or diagnoses. Performed By: #### 3 1201-7, 22464-1 ####[facility] LABCLIA [id number] [place] [address] [place] PAP TESTon 07-10-2024 ADEQUACY Normal [facility] Comment on above: Order Comment: Speci men Type: FLUID SPECIMENOrdering Facility: [facility] Address: [address] [place] [address] Result Comment: Sati sfactory for interpretation. Limited cellularity. Performed By: #### L [id number] ####[facility] LABCLIA [id number] [place] [address] [place] CASE REPORT Normal [facility] Comment on above: Order Comment: Speci men Type: FLUID SPECIMENOrdering Facility: [facility] Address: [address] [place] [address] Result Comment: Gyne cologic Cytology Report Case: [id number] Authorizing Provider: Jason Paredes MD Collected: 07/10/2024 12:13 PM Ordering Location: OB/Gynecology Received: 07/10/2024 03:39 PM First Screen: Aramouni, Heather, CT, ASCP Specimen: Pap Test, ThinPrep, Cervix Performed By: #### L [id number] ####[facility] LABCLIA [id number] [place] [address] [place] CLINICAL HISTORY, CYTOLOGY, DIRECTOR OF DEMENTIA OPERATIONS Routine Exam Normal [facility] Comment on above: Order Comment: Speci men Type: FLUID SPECIMENOrdering Facility: [facility] Address: [address] [place] [address] Performed By: #### L [id number] ####[facility] LABCLIA [id number] [place] [address] [place] FINAL PERFORMING LAB Normal [facility] Comment on above: Order Comment: Speci men Type: FLUID SPECIMENOrdering Facility: [facility] Address: [address] [place] [address] Result Comment: Tech nical component, import specialist screening performed at [facility], [address] [place] [address] CLIA# [id number] Diagnostic interpretation performed at [facility], [address] [place] [address] CLIA# [id number] Stone Repairer: Brennen Holloway M.D. Performed By: #### L [id number] ####[facility] LABCLIA [id number] [place] [address] [place] INTERPRETATION, CYTOLOGY, DIRECTOR OF DEMENTIA OPERATIONS Normal [facility] Comment on above: Order Comment: Speci men Type: FLUID SPECIMENOrdering Facility: [facility] Address: [address] [place] [address] Result Comment: Nega tive for intraepithelial lesion or malignancy. Performed By: #### L [id number] ####[facility] LABCLIA [id number] [place] [address] [place] LMP 06/04/2024 Normal [facility] Comment on above: Order Comment: Speci men Type: FLUID SPECIMENOrdering Facility: [facility] Address: [address] [place] [address] Performed By: #### L [id number] ####[facility] LABCLIA [id number] [place] [address] [place] PAP DISCLAIMER COMMENT The Pap Smear is a screening test for cervical cancer. False negative results occur with all screening tests, emphasizing the need for rescreening at recommended intervals, and clinical correlation. Normal [facility] Comment on above: Order Comment: Speci men Type: FLUID SPECIMENOrdering Facility: [facility] Address: [address] [place] [address] Performed By: #### L [id number] ####[facility] LABCLIA [id number] [place] [id number] [place] PAP ELECTRICAL AND RADIO MECHANIC COMMENT This specimen has be en analyzed by the ThinPrep Imaging System, an automated imaging and review system, which assists the laboratory in evaluating cells on ThinPrep Pap tests. Following automated imaging, selected cazares from every slide are reviewed by a import specialist. Normal [facility] Comment on above: Order Comment: Speci men Type: FLUID SPECIMENOrdering Facility: [facility] Address: [address] [place] [address] Performed By: #### L [id number] ####[facility] LABCLIA [id number] [place] [id number] [place] Reagin and Treponema pallidu m IgG and IgM [Interp]on 07-10-2024 T. pallidum IgG+IgM IA Ql (S) Non-Reactive Normal Nonreactive [facility] Comment on above: Order Comment: Speci men Type: BLOOD SPECIMENOrdering Facility: [facility] Address: [address] [place] [address] Performed By: #### 3 1201-7, 62594-8 ####[facility] LABIA [id number] [place] [address] [place] Reagin+T pallidum IgG+IgM Se rPl-Impon 07-10-2024 Reagin and Treponema pallidum IgG and IgM [Interp] Cannot exclude recent Treponemal infection if specimen collected within 7-10 days after appearance of suspect lesions or 2-3 weeks after an exposure. Clinical correlation is required. Normal [facility] Comment on above: Order Comment: Speci men Type: BLOOD SPECIMENOrdering Facility: [facility] Address: [address] [place] [address] Performed By: #### 3 1201-7, 38411-2 ####[facility] LABIA [id number] [place] [address] [place] TRICHOMONAS VAGINALIS NAATon 07-10-2024 T. vaginalis DNA DANIEL+probe Ql (Unsp spec) Negative Normal Negative for Trichomonas vaginalis by amplification [facility] Comment on above: Order Comment: Speci men Type: SWABOrdering Facility: [facility] Address: [address] [place] [address] Performed By: #### T RVAMP, 04396-5 ####[facility] LABIA [id number] [place] [address] [place] TSH SerPl-aCncon 07-10-2024 TSH Qn 1.140 m[IU]/L Normal 0.270-4.200 [facility] Comment on above: Order Comment: Speci men Type: BLOOD SPECIMENOrdering Facility: [facility] Address: [address] [place] [id number] Result Comment: If t he patient is , TSH reference range varies by gestational period: First Trimester (weeks 9-12): 0.180-2.990 mIU/L Second Trimester: 0.110-3.980 mIU/L Third Trimester: 0.480-4.710 mIU/L Kelvin Swain et al. A Practical Approach for the Verifications and Determination of Site- and Trimester-Specific Reference Intervals for Thyroid Function tests in . Thyroid, 2019:29:3:412-420. Dangelo Raya, et al. 2017 Guidelines of the [place] Thyroid Association for the Diagnosis and Management of Thyroid Disease during and the . Thyroid, 2017:27:3:315-389. Performed By: #### 3 016-3 ####[facility] LABCLIA [id number] [facility] [id number] [place], [place] [id number] [facility]2024 CNPN Telephone (INTMIN) KATHLEEN VILLA ([id number]) 1995 F T Date Time Provider Department [...] Insulin Lispro. 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 Patient verbalizes understanding. Olery message sent for patients reference as requested. [...] every 24 hours.Disp: 38.7 mLRfl: 1 Insulin Glendive, Disposable, (PEN NEEDLE) 32 gauge x 5/32Inject [...] Units subcutaneously every 24 hours. - Insulin Glendive, Disposable, (PEN NEEDLE) 32 gauge x 5/32 [...] TEST STRIPS) (more content not included)... Normal [facility] CNPNon 06-17-2024 FRIEDAN Telephone (ASHLEYIN) KATHLEEN VILLA ([id number]) 1995 F CHT Date Time Provider Department 06/17/24 KVNG LEWIS During your visit today, we recorded the following information about you: Nichole Quinteros 06/17/2024 3:16 PM Signed Patient has been identified by name and date of : Yes Type of form: [facility] Medication Reconciliation Post Discharge V2 Form received [...] (post-traumatic stress disorder) [F43.10] 12/25/2012 DVT prophylaxis [TPP8861] 12/25/2012 09/04/2013 DISPOSITION AND FOLLOW-UP [V999.01] 12/25/2012 09/04/2013 HTN (hypertension) [I10] Hypertension in , antepartum [O16.9] 09/19/2013 01/08/2014 GBS (group B Streptococcus carrier), +RV cultur*11/11/2013 04/16/2014 [Z34.90] 11/22/2013 04/16/2014 Diabetes mellitus in (HCC) [O24.919] 12/25/2013 04/16/2014 Diabetic ketoacidosis without coma associated w*01/08/2014 02/04/2023 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 Normal [facility] Comment on above: Performed By: #### M 200.1000 ####[facility] [address] [place], [address] Basic Metabolic Profile (BMP )on 06-11-2024 BUN/CRE 9.8 RATIO Low 10-20 [facility] Comment on above: Performed By: #### L 500.2500 ####[facility] [address] [place], [address] CA,Total 8.7 mg/dL Normal 8.5-10.1 [facility] Comment on above: Performed By: #### L 500.2500 ####[facility] [address] [place], [address] Chloride [Moles/Vol] 107 mmol/L Normal 98-107 [facility] Comment on above: Performed By: #### L 500.2500 ####[facility] [address] [place], [address] CO2 [Moles/Vol] 27.0 mmol/L Normal 21.0-32.0 [facility] Comment on above: Performed By: #### L 500.2500 ####[facility] [address] [place], [address] Creatinine [Mass/Vol] 0.82 mg/dL Normal 0.55-1.02 [facility] Comment on above: Result Comment: The validity of the calculated GFR GFRAA in patients over70 years has not been determined. Clinical correlation isessential. Performed By: #### L 500.2500 ####[facility] [address] [place], [address] ECRCL 105.79 ml/min Normal [facility] Comment on above: Performed By: #### L 500.2500 ####[facility] [address] [place], [address] EST GFR - AA 106 mL/min Normal >60 [facility] Comment on above: Result Comment: Afri can [place] GFR Calc Performed By: #### L 500.2500 ####[facility] [address] [place], [address] GAP 6 Normal 5-15 [facility] Comment on above: Performed By: #### L 500.2500 ####[facility] [address] [place], [address] GFR/1.73 sq M.predicted among non-blacks MDRD (S/P/Bld) [Vol rate/Area] 87 mL/min/{1.73_m2} Normal >60 [facility] Comment on above: Result Comment: Non- GFR Calc Performed By: #### L 500.2500 ####[facility] [address] [place], [address] Glucose [Mass/Vol] 194 mg/dL High 74-106 [facility] Comment on above: Result Comment: Fast ing Glucose result greater than or equal to 126 mg/dLsuggests DIABETES MELLITUS per A.D.A. criteria. Performed By: #### L 500.2500 ####[facility] [address] [place], [address] Potassium [Moles/Vol] 3.3 mmol/L Low 3.5-5.1 [facility] Comment on above: Performed By: #### L 500.2500 ####[facility] [address] [place], [address] Sodium [Moles/Vol] 140 mmol/L Normal 136-145 [facility] Comment on above: Performed By: #### L 500.2500 ####[facility] [address] [place], [address] Urea nitrogen [Mass/Vol] 8 mg/dL Normal 7-18 [facility] Comment on above: Performed By: #### L 500.2500 ####[facility] [address] [place], [address] Bedside Glucoseon 06-11-2024 FINGERSTICK GLU 116 mg/dL High 74-106 [facility] Comment on above: Result Comment: Dr Ej foreman FollowedMANAGEMENT OF PATIENT CARE PER NURSING PROTOCOL Performed By: #### L 501.080 ####[facility] [address] [place], [address] FINGERSTICK GLU 180 mg/dL High 74-106 [facility] Comment on above: Result Comment: EDGAR HUNG OF PATIENT CARE PER NURSING PROTOCOL Performed By: #### L 501.080 ####[facility] [address] [place], [address] Discharge Instructionon 05-28 Discharge Instruction Normal [facility] Acetone Serumon 06-10-2024 ACETONE SERUM Negative Normal NEG [facility] Comment on above: Performed By: #### L 501.6900 ####[facility] [address] [place], [address] Basic Metabolic Profile (BMP )on 06-10-2024 BUN Normal 7-18 [facility] Comment on above: Result Comment: Canc elled via OM: MD Ordered Performed By: #### L 500.2500 ####[facility] [address] [place], [address] BUN/CRE Normal 10-20 [facility] Comment on above: Result Comment: Canc elled via OM: MD Ordered Performed By: #### L 500.2500 ####[facility] [address] [place], [address] CA,Total Normal 8.5-10.1 [facility] Comment on above: Result Comment: Canc elled via OM: MD Ordered Performed By: #### L 500.2500 ####[facility] [address] [place], [address] CL Normal 98-107 [facility] Comment on above: Result Comment: Canc elled via OM: MD Ordered Performed By: #### L 500.2500 ####[facility] [address] [place], [address] CO2 Normal 21.0-32.0 [facility] Comment on above: Result Comment: Canc elled via OM: MD Ordered Performed By: #### L 500.2500 ####[facility] [address] [place], [address] CREAT,SERUM Normal 0.55-1.02 [facility] Comment on above: Result Comment: Canc elled via OM: MD Ordered Performed By: #### L 500.2500 ####[facility] [address] [place], [address] EST GFR Normal >60 [facility] Comment on above: Result Comment: Canc elled via OM: MD Ordered Performed By: #### L 500.2500 ####[facility] [address] [place], [address] EST GFR - AA Normal >60 [facility] Comment on above: Result Comment: Canc elled via OM: MD Ordered Performed By: #### L 500.2500 ####[facility] [address] [place], [address] GAP Normal 5-15 [facility] Comment on above: Result Comment: Canc elled via OM: MD Ordered Performed By: #### L 500.2500 ####[facility] [address] [place], [address] GLU Normal 74-106 [facility] Comment on above: Result Comment: Canc elled via OM: MD Ordered Performed By: #### L 500.2500 ####[facility] [address] [place], [address] Potassium Normal 3.5-5.1 [facility] Comment on above: Result Comment: Canc elled via OM: MD Ordered Performed By: #### L 500.2500 ####[facility] [address] [place], [address] Basic Metabolic Profile (BMP) Normal 136-145 [facility] Comment on above: Result Comment: Mray elled via OM: MD Ordered Performed By: #### L 500.2500 ####[facility] [address] [place], [address] BUN/CRE 9.8 RATIO Low 10-20 [facility] Comment on above: Performed By: #### L 500.2500 ####[facility] [address] [place], [address] CA,Total 7.9 mg/dL Low 8.5-10.1 [facility] Comment on above: Performed By: #### L 500.2500 ####[facility] [address] [place], [address] Chloride [Moles/Vol] 107 mmol/L Normal 98-107 [facility] Comment on above: Performed By: #### L 500.2500 ####[facility] [address] [place], [address] CO2 [Moles/Vol] 25.0 mmol/L Normal 21.0-32.0 [facility] Comment on above: Performed By: #### L 500.2500 ####[facility] [address] [place], [address] Creatinine [Mass/Vol] 0.61 mg/dL Normal 0.55-1.02 [facility] Comment on above: Result Comment: The validity of the calculated GFR GFRAA in patients over70 years has not been determined. Clinical correlation isessential. Performed By: #### L 500.2500 ####[facility] [address] [place], [address] ECRCL 142.21 ml/min Normal [facility] Comment on above: Performed By: #### L 500.2500 ####[facility] [address] [place], [address] EST GFR - AA 148 mL/min Normal >60 [facility] Comment on above: Result Comment: Afri can [place]ots[place]an GFR Calc Performed By: #### L 500.2500 ####[facility] [address] [place], [address] GAP 10 Normal 5-15 [facility] Comment on above: Performed By: #### L 500.2500 ####[facility] [address] [place], [address] GFR/1.73 sq M.predicted among non-blacks MDRD (S/P/Bld) [Vol rate/Area] 123 mL/min/{1.73_m2} Normal >60 [facility] Comment on above: Result Comment: Non- GFR Calc Performed By: #### L 500.2500 ####[facility] [address] [place], [address] Glucose [Mass/Vol] 89 mg/dL Normal 74-106 [facility] Comment on above: Performed By: #### L 500.2500 ####[facility] [address] [place], [address] Potassium [Moles/Vol] 3.0 mmol/L Low 3.5-5.1 [facility] Comment on above: Performed By: #### L 500.2500 ####[facility] [address] [place], [address] Sodium [Moles/Vol] 141 mmol/L Normal 136-145 [facility] Comment on above: Performed By: #### L 500.2500 ####[facility] [address] [place], [address] Urea nitrogen [Mass/Vol] 6 mg/dL Low 7-18 [facility] Comment on above: Performed By: #### L 500.2500 ####[facility] [address] [place], [address] BUN/CRE 11.2 RATIO Normal 10-20 [facility] Comment on above: Performed By: #### L 501.2300, L100.0100, L500.2500, L501.5200 ####[facility] [address] [place], [address] CA,Total 8.0 mg/dL Low 8.5-10.1 [facility] Comment on above: Performed By: #### L 501.2300, L100.0100, L500.2500, L501.5200 ####[facility] [address] [place], [address] Chloride [Moles/Vol] 107 mmol/L Normal 98-107 [facility] Comment on above: Performed By: #### L 501.2300, L100.0100, L500.2500, L501.5200 ####[facility] [address] [place], [address] CO2 [Moles/Vol] 24.0 mmol/L Normal 21.0-32.0 [facility] Comment on above: Performed By: #### L 501.2300, L100.0100, L500.2500, L501.5200 ####[facility] [address] [place], [address] Creatinine [Mass/Vol] 0.63 mg/dL Normal 0.55-1.02 [facility] Comment on above: Result Comment: The validity of the calculated GFR GFRAA in patients over70 years has not been determined. Clinical correlation isessential. Performed By: #### L 501.2300, L100.0100, L500.2500, L501.5200 ####[facility] [address] [place], [address] ECRCL 137.70 ml/min Normal [facility] Comment on above: Performed By: #### L 501.2300, L100.0100, L500.2500, L501.5200 ####[facility] [address] [place], [address] EST GFR - AA 144 mL/min Normal >60 [facility] Comment on above: Result Comment: Afri can [place] GFR Calc Performed By: #### L 501.2300, L100.0100, L500.2500, L501.5200 ####[facility] [address] [place], [address] GAP 7 Normal 5-15 [facility] Comment on above: Performed By: #### L 501.2300, L100.0100, L500.2500, L501.5200 ####[facility] [address] [place], [address] GFR/1.73 sq M.predicted among non-blacks MDRD (S/P/Bld) [Vol rate/Area] 119 mL/min/{1.73_m2} Normal >60 [facility] Comment on above: Result Comment: Non- GFR Calc Performed By: #### L 501.2300, L100.0100, L500.2500, L501.5200 ####[facility] [address] [place], [address] Glucose [Mass/Vol] 127 mg/dL High 74-106 [facility] Comment on above: Result Comment: Fast ing Glucose result greater than or equal to 126 mg/dLsuggests DIABETES MELLITUS per A.D.A. criteria. Performed By: #### L 501.2300, L100.0100, L500.2500, L501.5200 ####[facility] [address] [place], [address] Potassium [Moles/Vol] 3.7 mmol/L Normal 3.5-5.1 [facility] Comment on above: Performed By: #### L 501.2300, L100.0100, L500.2500, L501.5200 ####[facility] [address] [place], [address] Sodium [Moles/Vol] 138 mmol/L Normal 136-145 [facility] Comment on above: Performed By: #### L 501.2300, L100.0100, L500.2500, L501.5200 ####[facility] [address] [place], [address] Urea nitrogen [Mass/Vol] 7 mg/dL Normal 7-18 [facility] Comment on above: Performed By: #### L 501.2300, L100.0100, L500.2500, L501.5200 ####[facility] [address] [place], [address] BUN/CRE 11.2 RATIO Normal 10-20 [facility] Comment on above: Performed By: #### L 500.2500 ####[facility] [address] [place], [address] CA,Total 7.9 mg/dL Low 8.5-10.1 [facility] Comment on above: Performed By: #### L 500.2500 ####[facility] [address] [place], [address] Chloride [Moles/Vol] 107 mmol/L Normal 98-107 [facility] Comment on above: Performed By: #### L 500.2500 ####[facility] [address] [place], [address] CO2 [Moles/Vol] 25.0 mmol/L Normal 21.0-32.0 [facility] Comment on above: Performed By: #### L 500.2500 ####[facility] [address] [place], [address] Creatinine [Mass/Vol] 0.81 mg/dL Normal 0.55-1.02 [facility] Comment on above: Result Comment: The validity of the calculated GFR GFRAA in patients over70 years has not been determined. Clinical correlation isessential. Performed By: #### L 500.2500 ####[facility] [address] [place], [address] ECRCL 107.10 ml/min Normal [facility] Comment on above: Performed By: #### L 500.2500 ####[facility] [address] [place], [address] EST GFR - AA 108 mL/min Normal >60 [facility] Comment on above: Result Comment: Afri can [place] GFR Calc Performed By: #### L 500.2500 ####[facility] [address] [place], [address] GAP 7 Normal 5-15 [facility] Comment on above: Performed By: #### L 500.2500 ####[facility] [address] [place], [address] GFR/1.73 sq M.predicted among non-blacks MDRD (S/P/Bld) [Vol rate/Area] 89 mL/min/{1.73_m2} Normal >60 [facility] Comment on above: Result Comment: Non- GFR Calc Performed By: #### L 500.2500 ####[facility] [address] [place], [address] Glucose [Mass/Vol] 185 mg/dL High 74-106 [facility] Comment on above: Result Comment: Fast ing Glucose result greater than or equal to 126 mg/dLsuggests DIABETES MELLITUS per A.D.A. criteria. Performed By: #### L 500.2500 ####[facility] [address] [place], [address] Potassium [Moles/Vol] 2.9 mmol/L Low 3.5-5.1 [facility] Comment on above: Performed By: #### L 500.2500 ####[facility] [address] [place], [address] Sodium [Moles/Vol] 140 mmol/L Normal 136-145 [facility] Comment on above: Performed By: #### L 500.2500 ####[facility] [address] [place], [address] Urea nitrogen [Mass/Vol] 9 mg/dL Normal 7-18 [facility] Comment on above: Performed By: #### L 500.2500 ####[facility] [address] [place], [address] Bedside Glucoseon 06-10-2024 FINGERSTICK GLU 122 mg/dL High 74-106 [facility] Comment on above: Result Comment: EDGAR GEMENT OF PATIENT CARE PER NURSING PROTOCOL Performed By: #### L 501.080 ####[facility] [address] [place], [address] FINGERSTICK GLU 120 mg/dL High 74-106 [facility] Comment on above: Result Comment: EDGAR GEMENT OF PATIENT CARE PER NURSING PROTOCOL Performed By: #### L 501.080 ####[facility] [address] [place], [address] FINGERSTICK GLU 158 mg/dL High 74-106 [facility] Comment on above: Result Comment: EDGAR GEMENT OF PATIENT CARE PER NURSING PROTOCOL Performed By: #### L 501.080 ####[facility] [address] [place], [address] FINGERSTICK GLU 93 mg/dL Normal 74-106 [facility] Comment on above: Result Comment: EDGAR GEMENT OF PATIENT CARE PER NURSING PROTOCOL Performed By: #### L 501.080 ####[facility] [address] [place], [address] FINGERSTICK GLU 85 mg/dL Normal 74-106 [facility] Comment on above: Result Comment: EDGAR GEMENT OF PATIENT CARE PER NURSING PROTOCOL Performed By: #### L 501.080 ####[facility] [address] [place], [address] FINGERSTICK GLU 67 mg/dL Low 74-106 [facility] Comment on above: Result Comment: EDGAR GEMENT OF PATIENT CARE PER NURSING PROTOCOL Performed By: #### L 501.080 ####[facility] [address] [place], [address] FINGERSTICK GLU 64 mg/dL Low 74-106 [facility] Comment on above: Result Comment: EDGAR GEMENT OF PATIENT CARE PER NURSING PROTOCOL Performed By: #### L 501.080 ####[facility] [address] [place], [address] FINGERSTICK GLU 74 mg/dL Normal 74-106 [facility] Comment on above: Result Comment: EDGAR GEMENT OF PATIENT CARE PER NURSING PROTOCOL Performed By: #### L 501.080 ####[facility] [address] [place], [address] FINGERSTICK GLU 124 mg/dL High 74-106 [facility] Comment on above: Result Comment: EDGAR GEMENT OF PATIENT CARE PER NURSING PROTOCOL Performed By: #### L 501.080 ####[facility] [address] [place], [address] FINGERSTICK GLU 146 mg/dL High 74-106 [facility] Comment on above: Result Comment: EDGAR GEMENT OF PATIENT CARE PER NURSING PROTOCOL Performed By: #### L 501.080 ####[facility] [address] [place], [address] FINGERSTICK GLU 122 mg/dL High 74-106 [facility] Comment on above: Result Comment: EDGAR GEMENT OF PATIENT CARE PER NURSING PROTOCOL Performed By: #### L 501.080 ####[facility] [address] [place], [address] FINGERSTICK GLU 286 mg/dL High 74-106 [facility] Comment on above: Result Comment: EDGAR GEMENT OF PATIENT CARE PER NURSING PROTOCOL Performed By: #### L 501.080 ####[facility] [address] [place], [address] FINGERSTICK GLU 233 mg/dL High 74-106 [facility] Comment on above: Result Comment: EDGAR GEMENT OF PATIENT CARE PER NURSING PROTOCOL Performed By: #### L 501.080 ####[facility] [address] [place], [address] FINGERSTICK GLU 194 mg/dL High -106 [facility] Comment on above: Result Comment: EDGAR GEMENT OF PATIENT CARE PER NURSING PROTOCOL Performed By: #### L 501.080 ####[facility] [address] [place], [address] FINGERSTICK GLU 195 mg/dL High 74-106 [facility] Comment on above: Result Comment: EDGAR GEMENT OF PATIENT CARE PER NURSING PROTOCOL Performed By: #### L 501.080 ####[facility] [address] [place], [address] CBC W/Diff, Automatedon 10-1 Absolute Lymph 2.08 X10 3/uL Normal 0.83-4.51 [facility] Comment on above: Performed By: #### L 501.2300, L100.0100, L500.2500, L501.5200 ####[facility] [address] [place], [address] Absolute Neut 11.6 X10 3/uL High 2.0-7.7 [facility] Comment on above: Performed By: #### L 501.2300, L100.0100, L500.2500, L501.5200 ####[facility] [address] [place], [address] Basophils/100 WBC (Bld) 0.3 % Normal 0-1 [facility] Comment on above: Performed By: #### L 501.2300, L100.0100, L500.2500, L501.5200 ####[facility] [address] [place], [address] Eosinophils/100 WBC (Bld) 0.1 % Normal 0-5 [facility] Comment on above: Performed By: #### L 501.2300, L100.0100, L500.2500, L501.5200 ####[facility] [address] [place], [address] Erythrocyte distribution width (RBC) [Ratio] 12.6 % Normal 11.6-14.6 [facility] Comment on above: Performed By: #### L 501.2300, L100.0100, L500.2500, L501.5200 ####[facility] [address] [place], [address] Hematocrit (Bld) [Volume fraction] 36.7 % Low 37-47 [facility] Comment on above: Performed By: #### L 501.2300, L100.0100, L500.2500, L501.5200 ####[facility] [address] [place], [address] Hemoglobin (Bld) [Mass/Vol] 12.2 g/dL Normal 12.0-15.0 [facility] Comment on above: Performed By: #### L 501.2300, L100.0100, L500.2500, L501.5200 ####[facility] [address] [place], [address] IG% 1.100 High 0.0-0.9 [facility] Comment on above: Result Comment: IG% - Immature Granulocytes (promyelocytes, myelocytes andmetamyelocytes) > 1% indicates that a LEFT SHIFT is Present. Performed By: #### L 501.2300, L100.0100, L500.2500, L501.5200 ####[facility] [address] [place], [address] Lymphocytes/100 WBC (Bld) 14.1 % Low 19-41 [facility] Comment on above: Performed By: #### L 501.2300, L100.0100, L500.2500, L501.5200 ####[facility] [address] [place], [address] MCH (RBC) [Entitic mass] 29.5 pg Normal 27.0-32.0 [facility] Comment on above: Performed By: #### L 501.2300, L100.0100, L500.2500, L501.5200 ####[facility] [address] [place], [address] MCHC (RBC) [Mass/Vol] 33.2 g/dL Normal 32-36 [facility] Comment on above: Performed By: #### L 501.2300, L100.0100, L500.2500, L501.5200 ####[facility] [address] [place], [address] MCV (RBC) [Entitic vol] 88.9 fL Normal 81-99 [facility] Comment on above: Performed By: #### L 501.2300, L100.0100, L500.2500, L501.5200 ####[facility] [address] [place], [address] Monocytes/100 WBC (Bld) 5.9 % Normal 0-10 [facility] Comment on above: Performed By: #### L 501.2300, L100.0100, L500.2500, L501.5200 ####[facility] [address] [place], [address] Neutrophils/100 WBC (Bld) 78.5 % High 47-70 [facility] Comment on above: Performed By: #### L 501.2300, L100.0100, L500.2500, L501.5200 ####[facility] [address] [place], [address] Nucleated RBC (Bld) [#/Vol] 0 10*3/uL Normal 0-5 [facility] Comment on above: Performed By: #### L 501.2300, L100.0100, L500.2500, L501.5200 ####[facility] [address] [place], [address] Platelet mean volume (Bld) [Entitic vol] 11.8 fL Normal 6.2-12.0 [facility] Comment on above: Performed By: #### L 501.2300, L100.0100, L500.2500, L501.5200 ####[facility] [address] [place], [address] Platelets (Bld) [#/Vol] 187 10*3/uL Normal 150-450 [facility] Comment on above: Performed By: #### L 501.2300, L100.0100, L500.2500, L501.5200 ####[facility] [address] [place], [address] RBC (Bld) [#/Vol] 4.13 10*6/uL Low 4.2-5.4 [facility] Comment on above: Performed By: #### L 501.2300, L100.0100, L500.2500, L501.5200 ####[facility] [address] [place], [address] RDW SD 41.1 fl Normal 35.1-43.9 [facility] Comment on above: Performed By: #### L 501.2300, L100.0100, L500.2500, L501.5200 ####[facility] [address] [place], [address] WBC (Bld) [#/Vol] 14.8 10*3/uL High 4.4-11.0 [facility] Comment on above: Performed By: #### L 501.2300, L100.0100, L500.2500, L501.5200 ####[facility] [address] [place], [address] Magnesiumon 06-10-2024 Magnesium [Mass/Vol] 2.2 mg/dL Normal 1.6-2.6 [facility] Comment on above: Performed By: #### L 501.2300, L100.0100, L500.2500, L501.5200 ####[facility] [address] [place], [address] Phosphoruson 06-10-2024 Phosphate [Mass/Vol] 2.3 mg/dL Low 2.5-4.9 [facility] Comment on above: Performed By: #### L 501.2300 ####[facility] [address] [place], [address] Phosphate [Mass/Vol] 1.8 mg/dL Low 2.5-4.9 [facility] Comment on above: Performed By: #### L 501.2300, L100.0100, L500.2500, L501.5200 ####[facility] [address] [place], [address] Acetone Serumon 06-09-2024 ACETONE SERUM LARGE Abnormal NEG [facility] Comment on above: Performed By: #### L 501.6900 ####[facility] [address] [place], [address] Basic Metabolic Profile (BMP )on 06-09-2024 BUN/CRE 12.1 RATIO Normal 10-20 [facility] Comment on above: Performed By: #### L 500.2500 ####[facility] [address] [place], [address] CA,Total 8.0 mg/dL Low 8.5-10.1 [facility] Comment on above: Performed By: #### L 500.2500 ####[facility] [address] [place], [address] Chloride [Moles/Vol] 103 mmol/L Normal 98-107 [facility] Comment on above: Performed By: #### L 500.2500 ####[facility] [address] [place], [address] CO2 [Moles/Vol] 21.0 mmol/L Normal 21.0-32.0 [facility] Comment on above: Performed By: #### L 500.2500 ####[facility] [address] [place], [address] Creatinine [Mass/Vol] 0.74 mg/dL Normal 0.55-1.02 [facility] Comment on above: Result Comment: The validity of the calculated GFR GFRAA in patients over70 years has not been determined. Clinical correlation isessential. Performed By: #### L 500.2500 ####[facility] [address] [place], [address] ECRCL 117.23 ml/min Normal [facility] Comment on above: Performed By: #### L 500.2500 ####[facility] [address] [place], [address] EST GFR - AA 118 mL/min Normal >60 [facility] Comment on above: Result Comment: Afri can [place] GFR Calc Performed By: #### L 500.2500 ####[facility] [address] [place], [address] GAP 12 Normal 5-15 [facility] Comment on above: Performed By: #### L 500.2500 ####[facility] [address] [place], [address] GFR/1.73 sq M.predicted among non-blacks MDRD (S/P/Bld) [Vol rate/Area] 98 mL/min/{1.73_m2} Normal >60 [facility] Comment on above: Result Comment: Non- GFR Calc Performed By: #### L 500.2500 ####[facility] [address] [place], [address] Glucose [Mass/Vol] 351 mg/dL High 74-106 [facility] Comment on above: Result Comment: Gluc ose result greater than or equal to 200 mg/dLsuggests DIABETES MELLITUS per A.D.A. criteria. Performed By: #### L 500.2500 ####[facility] [address] [place], [address] Potassium [Moles/Vol] 3.4 mmol/L Low 3.5-5.1 [facility] Comment on above: Performed By: #### L 500.2500 ####[facility] [address] [place], [address] Sodium [Moles/Vol] 136 mmol/L Normal 136-145 [facility] Comment on above: Performed By: #### L 500.2500 ####[facility] [address] [place], [address] Urea nitrogen [Mass/Vol] 9 mg/dL Normal 7-18 [facility] Comment on above: Performed By: #### L 500.2500 ####[facility] [address] [place], [address] BUN Normal 7-18 [facility] Comment on above: Result Comment: Mary sanchez via OM: Ordered Performed By: #### L 500.2500 ####[facility] [address] [place], [address] Order Comment: Call MD with results STAT BUN/CRE Normal 10-20 [facility] Comment on above: Result Comment: Canc elled via OM: MD Ordered Performed By: #### L 500.2500 ####[facility] [address] [place], [address] Order Comment: Call MD with results STAT CA,Total Normal 8.5-10.1 [facility] Comment on above: Result Comment: Canc elled via OM: MD Ordered Performed By: #### L 500.2500 ####[facility] [address] [place], [address] Order Comment: Call MD with results STAT CL Normal 98-107 [facility] Comment on above: Result Comment: Canc elled via OM: MD Ordered Performed By: #### L 500.2500 ####[facility] [address] [place] [address] Order Comment: Call MD with results STAT CO2 Normal 21.0-32.0 [facility] Comment on above: Result Comment: Canc elled via OM: MD Ordered Performed By: #### L 500.2500 ####[facility] [address] [place] [id number] Order Comment: Call MD with results STAT CREAT,SERUM Normal 0.55-1.02 [facility] Comment on above: Result Comment: Canc elled via OM: MD Ordered Performed By: #### L 500.2500 ####[facility] [address] [place] [address] Order Comment: Call MD with results STAT EST GFR Normal >60 [facility] Comment on above: Result Comment: Canc elled via OM: MD Ordered Performed By: #### L 500.2500 ####[facility] [address] [place] [place] [id number] Order Comment: Call MD with results STAT EST GFR - AA Normal >60 [facility] Comment on above: Result Comment: Canc elled via OM: MD Ordered Performed By: #### L 500.2500 ####[facility] [address] [place], [address] Order Comment: Call MD with results STAT GAP Normal 5-15 [facility] Comment on above: Result Comment: Canc elled via OM: MD Ordered Performed By: #### L 500.2500 ####[facility] [address] [place], [address] Order Comment: Call MD with results STAT GLU Normal 74-106 [facility] Comment on above: Result Comment: Canc elled via OM: MD Ordered Performed By: #### L 500.2500 ####[facility] [address] [place], [address] Order Comment: Call MD with results STAT Potassium Normal 3.5-5.1 [facility] Comment on above: Result Comment: Canc elled via OM: MD Ordered Performed By: #### L 500.2500 ####[facility] [address] [place], [address] Order Comment: Call MD with results STAT Basic Metabolic Profile (BMP) Normal 136-145 [facility] Comment on above: Result Comment: Can elled via OM: MD Ordered Performed By: #### L 500.2500 ####[facility] [address] [place], [address] Order Comment: Call MD with results STAT BUN Normal 7-18 [facility] Comment on above: Order Comment: Call MD with results STAT Result Comment: NOT COLLECTED. Performed By: #### L 500.2500 ####[facility] [address] [place], [address] BUN/CRE Normal 10-20 [facility] Comment on above: Order Comment: Call MD with results STAT Result Comment: NOT COLLECTED. Performed By: #### L 500.2500 ####[facility] [address] [place], [address] CA,Total Normal 8.5-10.1 [facility] Comment on above: Order Comment: Call MD with results STAT Result Comment: NOT COLLECTED. Performed By: #### L 500.2500 ####[facility] [address] [place], [address] CL Normal 98-107 [facility] Comment on above: Order Comment: Call MD with results STAT Result Comment: NOT COLLECTED. Performed By: #### L 500.2500 ####[facility] [address] [place], [address] CO2 Normal 21.0-32.0 [facility] Comment on above: Order Comment: Call MD with results STAT Result Comment: NOT COLLECTED. Performed By: #### L 500.2500 ####[facility] [address] [place], [address] CREAT,SERUM Normal 0.55-1.02 [facility] Comment on above: Order Comment: Call MD with results STAT Result Comment: NOT COLLECTED. Performed By: #### L 500.2500 ####[facility] [address] [place], [address] EST GFR Normal >60 [facility] Comment on above: Order Comment: Call MD with results STAT Result Comment: NOT COLLECTED. Performed By: #### L 500.2500 ####[facility] [address] [place], [address] EST GFR - AA Normal >60 [facility] Comment on above: Order Comment: Call MD with results STAT Result Comment: NOT COLLECTED. Performed By: #### L 500.2500 ####[facility] [address] [place], [address] GAP Normal 5-15 [facility] Comment on above: Order Comment: Call MD with results STAT Result Comment: NOT COLLECTED. Performed By: #### L 500.2500 ####[facility] [address] [place], [address] GLU Normal 74-106 [facility] Comment on above: Order Comment: Call MD with results STAT Result Comment: NOT COLLECTED. Performed By: #### L 500.2500 ####[facility] [address] [place], [address] Potassium Normal 3.5-5.1 [facility] Comment on above: Order Comment: Call MD with results STAT Result Comment: NOT COLLECTED. Performed By: #### L 500.2500 ####[facility] [address] [place], [address] Basic Metabolic Profile (BMP) Normal 136-145 [facility] Comment on above: Order Comment: Call MD with results STAT Result Comment: NOT COLLECTED. Performed By: #### L 500.2500 ####[facility] [address] [place], [address] Bedside Glucoseon 06-09-2024 FINGERSTICK GLU 322 mg/dL High 74-106 [facility] Comment on above: Result Comment: EDGAR GEMENT OF PATIENT CARE PER NURSING PROTOCOL Performed By: #### L 501.080 ####[facility] [address] [place], [address] FINGERSTICK GLU 354 mg/dL High 74-106 [facility] Comment on above: Result Comment: EDGAR GEMENT OF PATIENT CARE PER NURSING PROTOCOL Performed By: #### L 501.080 ####[facility] [address] [place], [address] FINGERSTICK GLU 146 mg/dL High 74-106 [facility] Comment on above: Result Comment: EDGAR GEMENT OF PATIENT CARE PER NURSING PROTOCOL Performed By: #### L 501.080 ####[facility] [address] [place], [address] FINGERSTICK GLU 51 mg/dL Low 74-106 [facility] Comment on above: Result Comment: EDGAR GEMENT OF PATIENT CARE PER NURSING PROTOCOL Performed By: #### L 501.080 ####[facility] [address] [place], [address] FINGERSTICK GLU 72 mg/dL Low 74-106 [facility] Comment on above: Result Comment: EDGAR GEMENT OF PATIENT CARE PER NURSING PROTOCOL Performed By: #### L 501.080 ####[facility] [address] [place], [address] FINGERSTICK GLU 127 mg/dL High 74-106 [facility] Comment on above: Result Comment: EDGAR GEMENT OF PATIENT CARE PER NURSING PROTOCOL Performed By: #### L 501.080 ####[facility] [address] [facility] [address] FINGERSTICK GLU 128 mg/dL High 74-106 [facility] Comment on above: Result Comment: EDGAR GEMENT OF PATIENT CARE PER NURSING PROTOCOL Performed By: #### L 501.080 ####[facility] [address] [facility] [address] FINGERSTICK GLU 135 mg/dL High 74-106 [facility] Comment on above: Result Comment: EDGAR GEMENT OF PATIENT CARE PER NURSING PROTOCOL Performed By: #### L 501.080 ####[facility] [address] [place], [address] FINGERSTICK GLU 127 mg/dL High 74-106 [facility] Comment on above: Result Comment: EDGAR GEMENT OF PATIENT CARE PER NURSING PROTOCOL Performed By: #### L 501.080 ####[facility] [address] [facility] [address] FINGERSTICK GLU 131 mg/dL High 74-106 [facility] Comment on above: Result Comment: EDGAR GEMENT OF PATIENT CARE PER NURSING PROTOCOL Performed By: #### L 501.080 ####[facility] [address] [facility] [address] FINGERSTICK GLU 136 mg/dL High 74-106 [facility] Comment on above: Result Comment: EDGAR GEMENT OF PATIENT CARE PER NURSING PROTOCOL Performed By: #### L 501.080 ####[facility] [address] [place], [address] FINGERSTICK GLU 170 mg/dL High 74-106 [facility] Comment on above: Result Comment: EDGAR GEMENT OF PATIENT CARE PER NURSING PROTOCOL Performed By: #### L 501.080 ####[facility] [address] [place], [address] FINGERSTICK GLU 206 mg/dL High 74-106 [facility] Comment on above: Result Comment: EDGAR GEMENT OF PATIENT CARE PER NURSING PROTOCOL Performed By: #### L 501.080 ####[facility] [address] [place], [address] CBC W/Diff, Automatedon 10-1 3-2023 Absolute Lymph 1.62 X10 3/uL Normal 0.83-4.51 [facility] Comment on above: Performed By: #### L 501.2300, L100.0100 ####[facility] [address] [place], [address] Absolute Neut 14.1 X10 3/uL High 2.0-7.7 [facility] Comment on above: Performed By: #### L 501.2300, L100.0100 ####[facility] [address] [place], [address] Basophils/100 WBC (Bld) 0.2 % Normal 0-1 [facility] Comment on above: Performed By: #### L 501.2300, L100.0100 ####[facility] [address] [place], [address] Eosinophils/100 WBC (Bld) 0.1 % Normal 0-5 [facility] Comment on above: Performed By: #### L 501.2300, L100.0100 ####[facility] [address] [place], [address] Erythrocyte distribution width (RBC) [Ratio] 12.9 % Normal 11.6-14.6 [facility] Comment on above: Performed By: #### L 501.2300, L100.0100 ####[facility] [address] [place], [address] Hematocrit (Bld) [Volume fraction] 34.0 % Low 37-47 [facility] Comment on above: Performed By: #### L 501.2300, L100.0100 ####[facility] [address] [place], [address] Hemoglobin (Bld) [Mass/Vol] 11.1 g/dL Low 12.0-15.0 [facility] Comment on above: Performed By: #### L 501.2300, L100.0100 ####[facility] [address] [place], [address] IG% 0.800 Normal 0.0-0.9 [facility] Comment on above: Result Comment: IG% - Immature Granulocytes (promyelocytes, myelocytes andmetamyelocytes) > 1% indicates that a LEFT SHIFT is Present. Performed By: #### L 501.2300, L100.0100 ####[facility] [address] [place], [address] Lymphocytes/100 WBC (Bld) 9.7 % Low 19-41 [facility] Comment on above: Performed By: #### L 501.2300, L100.0100 ####[facility] [address] [place], [address] MCH (RBC) [Entitic mass] 29.1 pg Normal 27.0-32.0 [facility] Comment on above: Performed By: #### L 501.2300, L100.0100 ####[facility] [address] [place], [address] MCHC (RBC) [Mass/Vol] 32.6 g/dL Normal 32-36 [facility] Comment on above: Performed By: #### L 501.2300, L100.0100 ####[facility] [address] [place], [address] MCV (RBC) [Entitic vol] 89.2 fL Normal 81-99 [facility] Comment on above: Performed By: #### L 501.2300, L100.0100 ####[facility] [address] [place], [address] Monocytes/100 WBC (Bld) 5.1 % Normal 0-10 [facility] Comment on above: Performed By: #### L 501.2300, L100.0100 ####[facility] [address] [place], [address] Neutrophils/100 WBC (Bld) 84.1 % High 47-70 [facility] Comment on above: Performed By: #### L 501.2300, L100.0100 ####[facility] [address] [place], [address] Nucleated RBC (Bld) [#/Vol] 0 10*3/uL Normal 0-5 [facility] Comment on above: Performed By: #### L 501.2300, L100.0100 ####[facility] [address] [place], [address] Platelet mean volume (Bld) [Entitic vol] 12.0 fL Normal 6.2-12.0 [facility] Comment on above: Performed By: #### L 501.2300, L100.0100 ####[facility] [address] [place], [address] Platelets (Bld) [#/Vol] 147 10*3/uL Low 150-450 [facility] Comment on above: Performed By: #### L 501.2300, L100.0100 ####[facility] [address] [place], [address] RBC (Bld) [#/Vol] 3.81 10*6/uL Low 4.2-5.4 [facility] Comment on above: Performed By: #### L 501.2300, L100.0100 ####[facility] [address] [place], [address] RDW SD 42.1 fl Normal 35.1-43.9 [facility] Comment on above: Performed By: #### L 501.2300, L100.0100 ####[facility] [address] [place], [address] WBC (Bld) [#/Vol] 16.7 10*3/uL High 4.4-11.0 [facility] Comment on above: Performed By: #### L 501.2300, L100.0100 ####[facility] [address] [place], [address] Comprehensive Metabolic Prof ilon 06-09-2024 Albumin [Mass/Vol] 3.0 g/dL Low 3.2-5.0 [facility] Comment on above: Order Comment: Call MD with results STAT Performed By: #### L 500.4050, L501.5200 ####[facility] [address] [place], [address] Albumin/Globulin [Mass ratio] 1.1 {ratio} Normal 0.9-2.4 [facility] Comment on above: Order Comment: Call MD with results STAT Performed By: #### L 500.4050, L501.5200 ####[facility] [address] [place], [address] ALK P 68 U/L Normal 45-117 [facility] Comment on above: Order Comment: Call MD with results STAT Performed By: #### L 500.4050, L501.5200 ####[facility] [address] [place], [address] ALT [Catalytic activity/Vol] 22 U/L Normal 13-56 [facility] Comment on above: Order Comment: Call MD with results STAT Performed By: #### L 500.4050, L501.5200 ####[facility] [address] [place], [address] AST [Catalytic activity/Vol] 12 U/L Low 15-37 [facility] Comment on above: Order Comment: Call MD with results STAT Performed By: #### L 500.4050, L501.5200 ####[facility] [address] [place], [address] Bilirubin [Mass/Vol] 0.80 mg/dL Normal 0.20-1.00 [facility] Comment on above: Order Comment: Call MD with results STAT Result Comment: For patients on eltrombopag therapy, use of Dimension Hale TBIL is not recommended. Performed By: #### L 500.4050, L501.5200 ####[facility] [address] [place], [address] BUN/CRE 16.7 RATIO Normal 10-20 [facility] Comment on above: Order Comment: Call MD with results STAT Performed By: #### L 500.4050, L501.5200 ####[facility] [address] [place], [address] CA,Total 7.7 mg/dL Low 8.5-10.1 [facility] Comment on above: Order Comment: Call MD with results STAT Performed By: #### L 500.4050, L501.5200 ####[facility] [address] [place], [address] Chloride [Moles/Vol] 111 mmol/L High 98-107 [facility] Comment on above: Order Comment: Call MD with results STAT Performed By: #### L 500.4050, L501.5200 ####[facility] [address] [place], [address] CO2 [Moles/Vol] 23.0 mmol/L Normal 21.0-32.0 [facility] Comment on above: Order Comment: Call MD with results STAT Performed By: #### L 500.4050, L501.5200 ####[facility] [address] [place], [address] Creatinine [Mass/Vol] 0.60 mg/dL Normal 0.55-1.02 [facility] Comment on above: Order Comment: Call MD with results STAT Result Comment: The validity of the calculated GFR GFRAA in patients over70 years has not been determined. Clinical correlation isessential. Performed By: #### L 500.4050, L501.5200 ####[facility] [address] [place], [address] ECRCL 144.58 ml/min Normal [facility] Comment on above: Order Comment: Call MD with results STAT Performed By: #### L 500.4050, L501.5200 ####[facility] [address] [place], [address] EST GFR - AA 151 mL/min Normal >60 [facility] Comment on above: Order Comment: Call MD with results STAT Result Comment: Afri can [place] GFR Calc Performed By: #### L 500.4050, L501.5200 ####[facility] [address] [place], [address] GAP 6 Normal 5-15 [facility] Comment on above: Order Comment: Call MD with results STAT Performed By: #### L 500.4050, L501.5200 ####[facility] [address] [place], [address] GFR/1.73 sq M.predicted among non-blacks MDRD (S/P/Bld) [Vol rate/Area] 125 mL/min/{1.73_m2} Normal >60 [facility] Comment on above: Order Comment: Call MD with results STAT Result Comment: Non- GFR Calc Performed By: #### L 500.4050, L501.5200 ####[facility] [address] [place], [address] Globulin (S) [Mass/Vol] 2.7 g/dL Normal 2.2-4.2 [facility] Comment on above: Order Comment: Call MD with results STAT Performed By: #### L 500.4050, L501.5200 ####[facility] [address] [place], [address] Glucose [Mass/Vol] 142 mg/dL High 74-106 [facility] Comment on above: Order Comment: Call MD with results STAT Result Comment: Fast ing Glucose result greater than or equal to 126 mg/dLsuggests DIABETES MELLITUS per A.D.A. criteria. Performed By: #### L 500.4050, L501.5200 ####[facility] [address] [place], [address] Potassium [Moles/Vol] 3.0 mmol/L Low 3.5-5.1 [facility] Comment on above: Order Comment: Call MD with results STAT Performed By: #### L 500.4050, L501.5200 ####[facility] [address] [place], [address] Sodium [Moles/Vol] 139 mmol/L Normal 136-145 [facility] Comment on above: Order Comment: Call MD with results STAT Performed By: #### L 500.4050, L501.5200 ####[facility] [address] [place], [address] T PROT 5.7 g/dL Low 6.4-8.2 [facility] Comment on above: Order Comment: Call MD with results STAT Performed By: #### L 500.4050, L501.5200 ####[facility] [address] [place], [address] Urea nitrogen [Mass/Vol] 10 mg/dL Normal - [facility] Comment on above: Order Comment: Call MD with results STAT Performed By: #### L 500.4050, L501.5200 ####[facility] [address] [place], [address] Magnesiumon 06-09-2024 Magnesium [Mass/Vol] 2.0 mg/dL Normal 1.6-2.6 [facility] Comment on above: Order Comment: Call MD with results STAT Performed By: #### L 500.4050, L501.5200 ####[facility] [address] [place], [address] Phosphoruson 06-09-2024 Phosphate [Mass/Vol] 1.2 mg/dL Low 2.5-4.9 [facility] Comment on above: Performed By: #### L 501.2300, L100.0100 ####[facility] [address] [place], [address] Acetone Serumon 06-08-2024 ACETONE SERUM SMALL Abnormal NEG [facility] Comment on above: Order Comment: Comme nts: If not done in the ED Performed By: #### L 501.6900 ####[facility] [address] [place], [address] Basic Metabolic Profile (BMP )on 06-08-2024 BUN Normal 03-14 [facility] Comment on above: Order Comment: Call MD with results STAT Result Comment: NOT COLLECTED. Performed By: #### L 500.2500 ####[facility] [address] [place], [address] BUN/CRE Normal 06-16 [facility] Comment on above: Order Comment: Call MD with results STAT Result Comment: NOT COLLECTED. Performed By: #### L 500.2500 ####[facility] [address] [place], [address] CA,Total Normal 8.5-10.1 [facility] Comment on above: Order Comment: Call MD with results STAT Result Comment: NOT COLLECTED. Performed By: #### L 500.2500 ####[facility] [address] [place], [address] CL Normal 98-107 [facility] Comment on above: Order Comment: Call MD with results STAT Result Comment: NOT COLLECTED. Performed By: #### L 500.2500 ####[facility] [address] [place], [address] CO2 Normal 21.0-32.0 [facility] Comment on above: Order Comment: Call MD with results STAT Result Comment: NOT COLLECTED. Performed By: #### L 500.2500 ####[facility] [address] [place], [address] CREAT,SERUM Normal 0.55-1.02 [facility] Comment on above: Order Comment: Call MD with results STAT Result Comment: NOT COLLECTED. Performed By: #### L 500.2500 ####[facility] [address] [place], [address] EST GFR Normal >60 [facility] Comment on above: Order Comment: Call MD with results STAT Result Comment: NOT COLLECTED. Performed By: #### L 500.2500 ####[facility] [address] [place], [address] EST GFR - AA Normal >60 [facility] Comment on above: Order Comment: Call MD with results STAT Result Comment: NOT COLLECTED. Performed By: #### L 500.2500 ####[facility] [address] [place], [address] GAP Normal 5-15 [facility] Comment on above: Order Comment: Call MD with results STAT Result Comment: NOT COLLECTED. Performed By: #### L 500.2500 ####[facility] [address] [place], [address] GLU Normal 74-106 [facility] Comment on above: Order Comment: Call MD with results STAT Result Comment: NOT COLLECTED. Performed By: #### L 500.2500 ####[facility] [address] [place], [address] Potassium Normal 3.5-5.1 [facility] Comment on above: Order Comment: Call MD with results STAT Result Comment: NOT COLLECTED. Performed By: #### L 500.2500 ####[facility] [address] [place], [address] Basic Metabolic Profile (BMP) Normal 136-145 [facility] Comment on above: Order Comment: Call MD with results STAT Result Comment: NOT COLLECTED. Performed By: #### L 500.2500 ####[facility] [address] [place], [address] BUN Normal 7-18 [facility] Comment on above: Order Comment: Call MD with results STAT Result Comment: NOT COLLECTED. Performed By: #### L 500.2500 ####[facility] [address] [place], [address] BUN/CRE Normal 10-20 [facility] Comment on above: Order Comment: Call MD with results STAT Result Comment: NOT COLLECTED. Performed By: #### L 500.2500 ####[facility] [address] [place], [address] CA,Total Normal 8.5-10.1 [facility] Comment on above: Order Comment: Call MD with results STAT Result Comment: NOT COLLECTED. Performed By: #### L 500.2500 ####[facility] [address] [place], [address] CL Normal 98-107 [facility] Comment on above: Order Comment: Call MD with results STAT Result Comment: NOT COLLECTED. Performed By: #### L 500.2500 ####[facility] [address] [place], [address] CO2 Normal 21.0-32.0 [facility] Comment on above: Order Comment: Call MD with results STAT Result Comment: NOT COLLECTED. Performed By: #### L 500.2500 ####[facility] [address] [place], [address] CREAT,SERUM Normal 0.55-1.02 [facility] Comment on above: Order Comment: Call MD with results STAT Result Comment: NOT COLLECTED. Performed By: #### L 500.2500 ####[facility] [address] [place], [address] EST GFR Normal >60 [facility] Comment on above: Order Comment: Call MD with results STAT Result Comment: NOT COLLECTED. Performed By: #### L 500.2500 ####[facility] [address] [place], [address] EST GFR - AA Normal >60 [facility] Comment on above: Order Comment: Call MD with results STAT Result Comment: NOT COLLECTED. Performed By: #### L 500.2500 ####[facility] [address] [place], [address] GAP Normal 5-15 [facility] Comment on above: Order Comment: Call MD with results STAT Result Comment: NOT COLLECTED. Performed By: #### L 500.2500 ####[facility] [address] [place], [address] GLU Normal 74-106 [facility] Comment on above: Order Comment: Call MD with results STAT Result Comment: NOT COLLECTED. Performed By: #### L 500.2500 ####[facility] [address] [place], [address] Potassium Normal 3.5-5.1 [facility] Comment on above: Order Comment: Call MD with results STAT Result Comment: NOT COLLECTED. Performed By: #### L 500.2500 ####[facility] [address] [place], [address] Basic Metabolic Profile (BMP) Normal 136-145 [facility] Comment on above: Order Comment: Call MD with results STAT Result Comment: NOT COLLECTED. Performed By: #### L 500.2500 ####[facility] [address] [place], [address] BUN/CRE 19.6 RATIO Normal 10-20 [facility] Comment on above: Performed By: #### L 500.2500 ####[facility] [address] [place], [address] CA,Total 8.0 mg/dL Low 8.5-10.1 [facility] Comment on above: Performed By: #### L 500.2500 ####[facility] [address] [place], [address] Chloride [Moles/Vol] 112 mmol/L High 98-107 [facility] Comment on above: Performed By: #### L 500.2500 ####[facility] [address] [place], [address] CO2 [Moles/Vol] 18.0 mmol/L Low 21.0-32.0 [facility] Comment on above: Performed By: #### L 500.2500 ####[facility] [address] [place], [address] Creatinine [Mass/Vol] 0.87 mg/dL Normal 0.55-1.02 [facility] Comment on above: Result Comment: The validity of the calculated GFR GFRAA in patients over70 years has not been determined. Clinical correlation isessential. Performed By: #### L 500.2500 ####[facility] [address] [place], [address] ECRCL 99.71 ml/min Normal [facility] Comment on above: Performed By: #### L 500.2500 ####[facility] [address] [place], [address] EST GFR - AA 99 mL/min Normal >60 [facility] Comment on above: Result Comment: Afri can [place] GFR Calc Performed By: #### L 500.2500 ####[facility] [address] [place], [address] GAP 10 Normal 5-15 [facility] Comment on above: Performed By: #### L 500.2500 ####[facility] [address] [place], [address] GFR/1.73 sq M.predicted among non-blacks MDRD (S/P/Bld) [Vol rate/Area] 82 mL/min/{1.73_m2} Normal >60 [facility] Comment on above: Result Comment: Non- GFR Calc Performed By: #### L 500.2500 ####[facility] [address] [place], [address] Glucose [Mass/Vol] 189 mg/dL High 74-106 [facility] Comment on above: Result Comment: Fast ing Glucose result greater than or equal to 126 mg/dLsuggests DIABETES MELLITUS per A.D.A. criteria. Performed By: #### L 500.2500 ####[facility] [address] [place], [address] Potassium [Moles/Vol] 3.8 mmol/L Normal 3.5-5.1 [facility] Comment on above: Performed By: #### L 500.2500 ####[facility] [address] [place], [address] Sodium [Moles/Vol] 140 mmol/L Normal 136-145 [facility] Comment on above: Performed By: #### L 500.2500 ####[facility] [address] [place], [address] Urea nitrogen [Mass/Vol] 17 mg/dL Normal 7-18 [facility] Comment on above: Performed By: #### L 500.2500 ####[facility] [address] [place], [address] BUN Normal 7-18 [facility] Comment on above: Order Comment: Call MD with results STAT Result Comment: NOT COLLECTED. Performed By: #### L 500.2500 ####[facility] [address] [place], [address] BUN/CRE Normal 10-20 [facility] Comment on above: Order Comment: Call MD with results STAT Result Comment: NOT COLLECTED. Performed By: #### L 500.2500 ####[facility] [address] [place], [address] CA,Total Normal 8.5-10.1 [facility] Comment on above: Order Comment: Call MD with results STAT Result Comment: NOT COLLECTED. Performed By: #### L 500.2500 ####[facility] [address] [place], [address] CL Normal 98-107 [facility] Comment on above: Order Comment: Call MD with results STAT Result Comment: NOT COLLECTED. Performed By: #### L 500.2500 ####[facility] [address] [place], [address] CO2 Normal 21.0-32.0 [facility] Comment on above: Order Comment: Call MD with results STAT Result Comment: NOT COLLECTED. Performed By: #### L 500.2500 ####[facility] [address] [place], [address] CREAT,SERUM Normal 0.55-1.02 [facility] Comment on above: Order Comment: Call MD with results STAT Result Comment: NOT COLLECTED. Performed By: #### L 500.2500 ####[facility] [address] [place], [address] EST GFR Normal >60 [facility] Comment on above: Order Comment: Call MD with results STAT Result Comment: NOT COLLECTED. Performed By: #### L 500.2500 ####[facility] [address] [place], [address] EST GFR - AA Normal >60 [facility] Comment on above: Order Comment: Call MD with results STAT Result Comment: NOT COLLECTED. Performed By: #### L 500.2500 ####[facility] [address] [place], [address] GAP Normal 5-15 [facility] Comment on above: Order Comment: Call MD with results STAT Result Comment: NOT COLLECTED. Performed By: #### L 500.2500 ####[facility] [address] [place], [address] GLU Normal 74-106 [facility] Comment on above: Order Comment: Call MD with results STAT Result Comment: NOT COLLECTED. Performed By: #### L 500.2500 ####[facility] [address] [place], [address] Potassium Normal 3.5-5.1 [facility] Comment on above: Order Comment: Call MD with results STAT Result Comment: NOT COLLECTED. Performed By: #### L 500.2500 ####[facility] [address] [place], [address] Basic Metabolic Profile (BMP) Normal 136-145 [facility] Comment on above: Order Comment: Call MD with results STAT Result Comment: NOT COLLECTED. Performed By: #### L 500.2500 ####[facility] [address] [place], [address] BUN/CRE 19.6 RATIO Normal 10-20 [facility] Comment on above: Order Comment: Call MD with results STAT Performed By: #### L 500.2500 ####[facility] [address] [place], [address] CA,Total 7.9 mg/dL Low 8.5-10.1 [facility] Comment on above: Order Comment: Call MD with results STAT Performed By: #### L 500.2500 ####[facility] [address] [place], [address] Chloride [Moles/Vol] 112 mmol/L High 98-107 [facility] Comment on above: Order Comment: Call MD with results STAT Performed By: #### L 500.2500 ####[facility] [address] [place], [address] CO2 [Moles/Vol] 17.0 mmol/L Low 21.0-32.0 [facility] Comment on above: Order Comment: Call MD with results STAT Performed By: #### L 500.2500 ####[facility] [address] [place], [address] Creatinine [Mass/Vol] 1.02 mg/dL Normal 0.55-1.02 [facility] Comment on above: Order Comment: Call MD with results STAT Result Comment: The validity of the calculated GFR GFRAA in patients over70 years has not been determined. Clinical correlation isessential. Performed By: #### L 500.2500 ####[facility] [address] [place], [address] ECRCL 82.09 ml/min Normal [facility] Comment on above: Order Comment: Call MD with results STAT Performed By: #### L 500.2500 ####[facility] [address] [place], [address] EST GFR - AA 82 mL/min Normal >60 [facility] Comment on above: Order Comment: Call MD with results STAT Result Comment: Afri can [place] GFR Calc Performed By: #### L 500.2500 ####[facility] [address] [place], [address] GAP 10 Normal 5-15 [facility] Comment on above: Order Comment: Call MD with results STAT Performed By: #### L 500.2500 ####[facility] [address] [place], [address] GFR/1.73 sq M.predicted among non-blacks MDRD (S/P/Bld) [Vol rate/Area] 68 mL/min/{1.73_m2} Normal >60 [facility] Comment on above: Order Comment: Call MD with results STAT Result Comment: Non- GFR Calc Performed By: #### L 500.2500 ####[facility] [address] [place], [address] Glucose [Mass/Vol] 168 mg/dL High 74-106 [facility] Comment on above: Order Comment: Call MD with results STAT Result Comment: Fast ing Glucose result greater than or equal to 126 mg/dLsuggests DIABETES MELLITUS per A.D.A. criteria. Performed By: #### L 500.2500 ####[facility] [address] [place], [address] Potassium [Moles/Vol] 3.7 mmol/L Normal 3.5-5.1 [facility] Comment on above: Order Comment: Call MD with results STAT Performed By: #### L 500.2500 ####[facility] [address] [place], [address] Sodium [Moles/Vol] 139 mmol/L Normal 136-145 [facility] Comment on above: Order Comment: Call MD with results STAT Performed By: #### L 500.2500 ####[facility] [address] [place], [address] Urea nitrogen [Mass/Vol] 20 mg/dL High 7-18 [facility] Comment on above: Order Comment: Call MD with results STAT Performed By: #### L 500.2500 ####[facility] [address] [place], [address] Bedside Glucoseon 06-08-2024 FINGERSTICK GLU 191 mg/dL High 74-106 [facility] Comment on above: Result Comment: EDGAR HUNG OF PATIENT CARE PER NURSING PROTOCOL Performed By: #### L 501.080 ####[facility] [address] [place], [address] FINGERSTICK GLU 198 mg/dL High 74-106 [facility] Comment on above: Result Comment: EDGAR GEMENT OF PATIENT CARE PER NURSING PROTOCOL Performed By: #### L 501.080 ####[facility] [address] [place], [address] FINGERSTICK GLU 247 mg/dL High 74-106 [facility] Comment on above: Result Comment: EDGAR GEMENT OF PATIENT CARE PER NURSING PROTOCOL Performed By: #### L 501.080 ####[facility] [address] [place], [address] FINGERSTICK GLU 252 mg/dL High -106 [facility] Comment on above: Result Comment: EDGAR GEMENT OF PATIENT CARE PER NURSING PROTOCOL Performed By: #### L 501.080 ####[facility] [address] [place], [address] FINGERSTICK GLU 205 mg/dL High 74-106 [facility] Comment on above: Result Comment: EDGAR GEMENT OF PATIENT CARE PER NURSING PROTOCOL Performed By: #### L 501.080 ####[facility] [address] [place], [address] FINGERSTICK GLU 151 mg/dL High 74-106 [facility] Comment on above: Result Comment: EDGAR GEMENT OF PATIENT CARE PER NURSING PROTOCOL Performed By: #### L 501.080 ####[facility] [address] [place], [address] FINGERSTICK GLU 176 mg/dL High -106 [facility] Comment on above: Result Comment: EDGAR GEMENT OF PATIENT CARE PER NURSING PROTOCOL Performed By: #### L 501.080 ####[facility] [address] [place], [address] FINGERSTICK GLU 121 mg/dL High 74-106 [facility] Comment on above: Result Comment: EDGAR GEMENT OF PATIENT CARE PER NURSING PROTOCOL Performed By: #### L 501.080 ####[facility] [address] [place], [address] FINGERSTICK GLU 108 mg/dL High 74-106 [facility] Comment on above: Result Comment: EDGAR GEMENT OF PATIENT CARE PER NURSING PROTOCOL Performed By: #### L 501.080 ####[facility] [address] [place], [address] FINGERSTICK GLU 114 mg/dL High 74-106 [facility] Comment on above: Result Comment: EDGAR GEMENT OF PATIENT CARE PER NURSING PROTOCOL Performed By: #### L 501.080 ####[facility] [address] [place], [address] FINGERSTICK GLU 236 mg/dL High 74-106 [facility] Comment on above: Result Comment: EDGAR GEMENT OF PATIENT CARE PER NURSING PROTOCOL Performed By: #### L 501.080 ####[facility] [address] [place], [address] FINGERSTICK GLU 251 mg/dL High 74-106 [facility] Comment on above: Result Comment: EDGAR GEMENT OF PATIENT CARE PER NURSING PROTOCOL Performed By: #### L 501.080 ####[facility] [address] [place], [address] FINGERSTICK GLU 261 mg/dL High 74-106 [facility] Comment on above: Result Comment: EDGAR GEMENT OF PATIENT CARE PER NURSING PROTOCOL Performed By: #### L 501.080 ####[facility] [address] [place], [address] FINGERSTICK GLU 402 mg/dL High 74-106 [facility] Comment on above: Result Comment: EDGAR GEMENT OF PATIENT CARE PER NURSING PROTOCOL Performed By: #### L 501.080 ####[facility] [address] [place], [address] FINGERSTICK GLU 324 mg/dL High 74-106 [facility] Comment on above: Result Comment: EDGAR HUNG OF PATIENT CARE PER NURSING PROTOCOL Performed By: #### L 501.080 ####[facility] [address] [place], [address] Blood Gases by [facility] 024 GEM TEST Positive Normal [facility] Comment on above: Performed By: #### L 9000.0800 ####[facility] [address] [place], [address] Base excess Calc (Bld) [Moles/Vol] -14 mmol/L Low -2 to +2 [facility] Comment on above: Performed By: #### L 9000.0800 ####[facility] [address] [place], [address] Blood Gas Type ART Normal [facility] Comment on above: Performed By: #### L 9000.0800 ####[facility] [address] [place], [address] CO2 [Moles/Vol] 11 mmol/L [facility] Comment on above: Performed By: #### L 9000.0800 ####[facility] [address] [place], [address] FI02 21.0 Normal [facility] Comment on above: Performed By: #### L 9000.0800 ####[facility] [address] [place], [address] HCO3 (Bld) [Moles/Vol] 10.7 mmol/L Low 22-26 [facility] Comment on above: Performed By: #### L 9000.0800 ####[facility] [address] [place], [address] Mode Not entered Normal [facility] Comment on above: Performed By: #### L 9000.0800 ####[facility] [address] [place], [address] O2 Delivery Dev Room Air Normal [facility] Comment on above: Performed By: #### L 9000.0800 ####[facility] [address] [place], [address] pCO2 17.9 mmHg Invalid Interpretation Code 35-45 [facility] Comment on above: Performed By: #### L 9000.0800 ####[facility] [address] [place], [address] pH (Bld) 7.39 [pH] Normal 7.35-7.45 [facility] Comment on above: Performed By: #### L 9000.0800 ####[facility] [address] [place], [address] PO2 114 mmHG High 75-100 [facility] Comment on above: Performed By: #### L 9000.0800 ####[facility] [address] [place], [address] Read Back By Yes [facility] Comment on above: Performed By: #### L 9000.0800 ####[facility] [address] [place], [address] Results To denia [facility] Comment on above: Performed By: #### L 9000.0800 ####[facility] [address] [place], [address] SITE L Radial Normal [facility] Comment on above: Performed By: #### L 9000.0800 ####[facility] [address] [place], [address] SO2 99 Normal 95-99 [facility] Comment on above: Performed By: #### L 9000.0800 ####[facility] [address] [place], [address] Time Given 09:45:00 Normal [facility] Comment on above: Performed By: #### L 9000.0800 ####[facility] [address] [place], [address] CBC W/Diff, Automatedon 10-1 Absolute Lymph 0.71 X10 3/uL Low 0.83-4.51 [facility] Comment on above: Performed By: #### L 500.4050, L100.0100, L501.5200 ####[facility] [address] [place], [address] Absolute Neut 19.8 X10 3/uL High 2.0-7.7 [facility] Comment on above: Performed By: #### L 500.4050, L100.0100, L501.5200 ####[facility] [address] [place], [address] Basophils/100 WBC (Bld) 0.1 % Normal 0-1 [facility] Comment on above: Performed By: #### L 500.4050, L100.0100, L501.5200 ####[facility] [address] [place], [address] Eosinophils/100 WBC (Bld) 0.0 % Normal 0-5 [facility] Comment on above: Performed By: #### L 500.4050, L100.0100, L501.5200 ####[facility] [address] [place], [address] Erythrocyte distribution width (RBC) [Ratio] 12.9 % Normal 11.6-14.6 [facility] Comment on above: Performed By: #### L 500.4050, L100.0100, L501.5200 ####[facility] [address] [place], [address] Hematocrit (Bld) [Volume fraction] 41.0 % Normal 37-47 [facility] Comment on above: Performed By: #### L 500.4050, L100.0100, L501.5200 ####[facility] [address] [place], [address] Hemoglobin (Bld) [Mass/Vol] 13.2 g/dL Normal 12.0-15.0 [facility] Comment on above: Performed By: #### L 500.4050, L100.0100, L501.5200 ####[facility] [address] [place], [address] IG% 0.900 Normal 0.0-0.9 [facility] Comment on above: Result Comment: IG% - Immature Granulocytes (promyelocytes, myelocytes andmetamyelocytes) > 1% indicates that a LEFT SHIFT is Present. Performed By: #### L 500.4050, L100.0100, L501.5200 ####[facility] [address] [place], [address] Lymphocytes/100 WBC (Bld) 3.3 % Low 19-41 [facility] Comment on above: Performed By: #### L 500.4050, L100.0100, L501.5200 ####[facility] [address] [place], [address] MCH (RBC) [Entitic mass] 29.7 pg Normal 27.0-32.0 [facility] Comment on above: Performed By: #### L 500.4050, L100.0100, L501.5200 ####[facility] [address] [place], [address] MCHC (RBC) [Mass/Vol] 32.2 g/dL Normal 32-36 [facility] Comment on above: Performed By: #### L 500.4050, L100.0100, L501.5200 ####[facility] [address] [place], [address] MCV (RBC) [Entitic vol] 92.1 fL Normal 81-99 [facility] Comment on above: Performed By: #### L 500.4050, L100.0100, L501.5200 ####[facility] [address] [place], [address] Monocytes/100 WBC (Bld) 4.9 % Normal 0-10 [facility] Comment on above: Performed By: #### L 500.4050, L100.0100, L501.5200 ####[facility] [address] [place], [address] Neutrophils/100 WBC (Bld) 90.8 % High 47-70 [facility] Comment on above: Performed By: #### L 500.4050, L100.0100, L501.5200 ####[facility] [address] [place], [address] Nucleated RBC (Bld) [#/Vol] 0 10*3/uL Normal 0-5 [facility] Comment on above: Performed By: #### L 500.4050, L100.0100, L501.5200 ####[facility] [address] [place], [address] Platelet mean volume (Bld) [Entitic vol] 13.6 fL High 6.2-12.0 [facility] Comment on above: Performed By: #### L 500.4050, L100.0100, L501.5200 ####[facility] [address] [place], [address] Platelets (Bld) [#/Vol] 171 10*3/uL Normal 150-450 [facility] Comment on above: Performed By: #### L 500.4050, L100.0100, L501.5200 ####[facility] [address] [place], [address] RBC (Bld) [#/Vol] 4.45 10*6/uL Normal 4.2-5.4 [facility] Comment on above: Performed By: #### L 500.4050, L100.0100, L501.5200 ####[facility] [address] [place], [address] RDW SD 43.6 fl Normal 35.1-43.9 [facility] Comment on above: Performed By: #### L 500.4050, L100.0100, L501.5200 ####[facility] [address] [place], [address] WBC (Bld) [#/Vol] 21.8 10*3/uL High 4.4-11.0 [facility] Comment on above: Performed By: #### L 500.4050, L100.0100, L501.5200 ####[facility] [address] [place], [address] Comprehensive Metabolic Prof [facility] 06-08-2024 Albumin [Mass/Vol] 3.9 g/dL Normal 3.2-5.0 [facility] Comment on above: Performed By: #### L 500.4050, L100.0100, L501.5200 ####[facility] [address] [place], [address] Albumin/Globulin [Mass ratio] 1.2 {ratio} Normal 0.9-2.4 [facility] Comment on above: Performed By: #### L 500.4050, L100.0100, L501.5200 ####[facility] [address] [place], [address] ALK P 90 U/L Normal 45-117 [facility] Comment on above: Performed By: #### L 500.4050, L100.0100, L501.5200 ####[facility] [address] [place], [address] ALT [Catalytic activity/Vol] 21 U/L Normal 13-56 [facility] Comment on above: Performed By: #### L 500.4050, L100.0100, L501.5200 ####[facility] [address] [place], [address] AST [Catalytic activity/Vol] 15 U/L Normal 15-37 [facility] Comment on above: Performed By: #### L 500.4050, L100.0100, L501.5200 ####[facility] [address] [place], [address] Bilirubin [Mass/Vol] 1.30 mg/dL High 0.20-1.00 [facility] Comment on above: Result Comment: For patients on eltrombopag therapy, use of Dimension Hale TBIL is not recommended. Performed By: #### L 500.4050, L100.0100, L501.5200 ####[facility] [address] [place], [address] BUN/CRE 22.0 RATIO High 10-20 [facility] Comment on above: Performed By: #### L 500.4050, L100.0100, L501.5200 ####[facility] [address] [place], [address] CA,Total 8.9 mg/dL Normal 8.5-10.1 [facility] Comment on above: Performed By: #### L 500.4050, L100.0100, L501.5200 ####[facility] [address] [place], [address] Chloride [Moles/Vol] 100 mmol/L Normal 98-107 [facility] Comment on above: Performed By: #### L 500.4050, L100.0100, L501.5200 ####[facility] [address] [place], [address] CO2 [Moles/Vol] 12.0 mmol/L Low 21.0-32.0 [facility] Comment on above: Performed By: #### L 500.4050, L100.0100, L501.5200 ####[facility] [address] [place], [address] Creatinine [Mass/Vol] 1.00 mg/dL Normal 0.55-1.02 [facility] Comment on above: Result Comment: The validity of the calculated GFR GFRAA in patients over70 years has not been determined. Clinical correlation isessential. Performed By: #### L 500.4050, L100.0100, L501.5200 ####[facility] [address] [place], [address] ECRCL 83.74 ml/min Normal [facility] Comment on above: Performed By: #### L 500.4050, L100.0100, L501.5200 ####[facility] [address] [place], [address] EST GFR - AA 84 mL/min Normal >60 [facility] Comment on above: Result Comment: Afri can [place] GFR Calc Performed By: #### L 500.4050, L100.0100, L501.5200 ####[facility] [address] [place], [address] GAP 18 High 5-15 [facility] Comment on above: Performed By: #### L 500.4050, L100.0100, L501.5200 ####[facility] [address] [place], [address] GFR/1.73 sq M.predicted among non-blacks MDRD (S/P/Bld) [Vol rate/Area] 69 mL/min/{1.73_m2} Normal >60 [facility] Comment on above: Result Comment: Non- GFR Calc Performed By: #### L 500.4050, L100.0100, L501.5200 ####[facility] [address] [place], [address] Globulin (S) [Mass/Vol] 3.2 g/dL Normal 2.2-4.2 [facility] Comment on above: Performed By: #### L 500.4050, L100.0100, L501.5200 ####[facility] [address] [place], [address] Glucose [Mass/Vol] 398 mg/dL High 74-106 [facility] Comment on above: Result Comment: Gluc ose result greater than or equal to 200 mg/dLsuggests DIABETES MELLITUS per A.D.A. criteria. Performed By: #### L 500.4050, L100.0100, L501.5200 ####[facility] [address] [place], [address] Potassium [Moles/Vol] 4.2 mmol/L Normal 3.5-5.1 [facility] Comment on above: Performed By: #### L 500.4050, L100.0100, L501.5200 ####[facility] [address] [place], [address] Sodium [Moles/Vol] 131 mmol/L Low 136-145 [facility] Comment on above: Performed By: #### L 500.4050, L100.0100, L501.5200 ####[facility] [address] [place], [address] T PROT 7.1 g/dL Normal 6.4-8.2 [facility] Comment on above: Performed By: #### L 500.4050, L100.0100, L501.5200 ####[facility] [address] [place], [address] Urea nitrogen [Mass/Vol] 22 mg/dL High 7-18 [facility] Comment on above: Performed By: #### L 500.4050, L100.0100, L501.5200 ####[facility] [address] [place], [address] Hemoglobin A1con 06-08-2024 HbA1c (Bld) [Mass fraction] 8.6 % High 3.8-5.6 [facility] Comment on above: Result Comment: Norm al < 5.7 % Prediabetic 5.7 - 6.4 % Diabetic >or= 6.5 % Please note range changes. Performed By: #### L 501.9985 ####[facility] [address] [place], [address] Magnesiumon 06-08-2024 Magnesium [Mass/Vol] 1.8 mg/dL Normal 1.6-2.6 [facility] Comment on above: Performed By: #### L 500.4050, L100.0100, L501.5200 ####[facility] [address] [place], [address] Abdomen/Pelvis W IV Cont ONL Yon 06-07-2024 Abdomen/Pelvis W IV Cont ONLY Normal [facility] Bedside Glucoseon 06-07-2024 FINGERSTICK GLU 422 mg/dL High 74-106 [facility] Comment on above: Result Comment: EDGAR GEMENT OF PATIENT CARE PER NURSING PROTOCOL Performed By: #### L 501.080 ####[facility] [address] [place], [address] FINGERSTICK GLU 331 mg/dL High 74-106 [facility] Comment on above: Result Comment: EDGAR GEMENT OF PATIENT CARE PER NURSING PROTOCOL Performed By: #### L 501.080 ####[facility] [address] [place], [address] CBC W/Diff, Automatedon 05-28 Absolute Lymph 0.76 X10 3/uL Low 0.83-4.51 [facility] Comment on above: Performed By: #### L 501.2450, L100.0100, L501.4020, L500.4050 ####[facility] [address] [place], [address] Absolute Neut 14.6 X10 3/uL High 2.0-7.7 [facility] Comment on above: Performed By: #### L 501.2450, L100.0100, L501.4020, L500.4050 ####[facility] [address] [place], [address] Basophils/100 WBC (Bld) 0.3 % Normal 0-1 [facility] Comment on above: Performed By: #### L 501.2450, L100.0100, L501.4020, L500.4050 ####[facility] [address] [place], [address] Eosinophils/100 WBC (Bld) 0.0 % Normal 0-5 [facility] Comment on above: Performed By: #### L 501.2450, L100.0100, L501.4020, L500.4050 ####[facility] [address] [place], [address] Erythrocyte distribution width (RBC) [Ratio] 12.3 % Normal 11.6-14.6 [facility] Comment on above: Performed By: #### L 501.2450, L100.0100, L501.4020, L500.4050 ####[facility] [address] [place], [address] Hematocrit (Bld) [Volume fraction] 39.5 % Normal 37-47 [facility] Comment on above: Performed By: #### L 501.2450, L100.0100, L501.4020, L500.4050 ####[facility] [address] [place], [address] Hemoglobin (Bld) [Mass/Vol] 13.4 g/dL Normal 12.0-15.0 [facility] Comment on above: Performed By: #### L 501.2450, L100.0100, L501.4020, L500.4050 ####[facility] [address] [place], [address] IG% 0.900 Normal 0.0-0.9 [facility] Comment on above: Result Comment: IG% - Immature Granulocytes (promyelocytes, myelocytes andmetamyelocytes) > 1% indicates that a LEFT SHIFT is Present. Performed By: #### L 501.2450, L100.0100, L501.4020, L500.4050 ####[facility] [address] [place], [address] Lymphocytes/100 WBC (Bld) 4.8 % Low 19-41 [facility] Comment on above: Performed By: #### L 501.2450, L100.0100, L501.4020, L500.4050 ####[facility] [address] [place], [address] MCH (RBC) [Entitic mass] 29.2 pg Normal 27.0-32.0 [facility] Comment on above: Performed By: #### L 501.2450, L100.0100, L501.4020, L500.4050 ####[facility] [address] [place], [address] MCHC (RBC) [Mass/Vol] 33.9 g/dL Normal 32-36 [facility] Comment on above: Performed By: #### L 501.2450, L100.0100, L501.4020, L500.4050 ####[facility] [address] [place], [address] MCV (RBC) [Entitic vol] 86.1 fL Normal 81-99 [facility] Comment on above: Performed By: #### L 501.2450, L100.0100, L501.4020, L500.4050 ####[facility] [address] [place], [address] Monocytes/100 WBC (Bld) 2.6 % Normal 0-10 [facility] Comment on above: Performed By: #### L 501.2450, L100.0100, L501.4020, L500.4050 ####[facility] [address] [place], [address] Neutrophils/100 WBC (Bld) 91.4 % High 47-70 [facility] Comment on above: Performed By: #### L 501.2450, L100.0100, L501.4020, L500.4050 ####[facility] [address] [place], [address] Nucleated RBC (Bld) [#/Vol] 0 10*3/uL Normal 0-5 [facility] Comment on above: Performed By: #### L 501.2450, L100.0100, L501.4020, L500.4050 ####[facility] [address] [place], [address] Platelet mean volume (Bld) [Entitic vol] 13.6 fL High 6.2-12.0 [facility] Comment on above: Performed By: #### L 501.2450, L100.0100, L501.4020, L500.4050 ####[facility] [address] [place], [address] Platelets (Bld) [#/Vol] 167 10*3/uL Normal 150-450 [facility] Comment on above: Performed By: #### L 501.2450, L100.0100, L501.4020, L500.4050 ####[facility] [address] [place], [address] RBC (Bld) [#/Vol] 4.59 10*6/uL Normal 4.2-5.4 [facility] Comment on above: Performed By: #### L 501.2450, L100.0100, L501.4020, L500.4050 ####[facility] [address] [place], [address] RDW SD 38.5 fl Normal 35.1-43.9 [facility] Comment on above: Performed By: #### L 501.2450, L100.0100, L501.4020, L500.4050 ####[facility] [address] [place], [address] WBC (Bld) [#/Vol] 16.0 10*3/uL High 4.4-11.0 [facility] Comment on above: Performed By: #### L 501.2450, L100.0100, L501.4020, L500.4050 ####[facility] [address] [place], [address] Comprehensive Metabolic Prof [facility] 06-07-2024 Albumin [Mass/Vol] 4.1 g/dL Normal 3.2-5.0 [facility] Comment on above: Order Comment: 'TROP ' Serial specimen #1, #2 or #3: 1 Performed By: #### L 501.2450, L100.0100, L501.4020, L500.4050 ####[facility] [address] [place], [address] Albumin/Globulin [Mass ratio] 1.2 {ratio} Normal 0.9-2.4 [facility] Comment on above: Order Comment: 'TROP ' Serial specimen #1, #2 or #3: 1 Performed By: #### L 501.2450, L100.0100, L501.4020, L500.4050 ####[facility] [address] [place], [address] ALK P 87 U/L Normal 45-117 [facility] Comment on above: Order Comment: 'TROP ' Serial specimen #1, #2 or #3: 1 Performed By: #### L 501.2450, L100.0100, L501.4020, L500.4050 ####[facility] [address] [place], [address] ALT [Catalytic activity/Vol] 25 U/L Normal 13-56 [facility] Comment on above: Order Comment: 'TROP ' Serial specimen #1, #2 or #3: 1 Performed By: #### L 501.2450, L100.0100, L501.4020, L500.4050 ####[facility] [address] [place], [address] AST [Catalytic activity/Vol] 15 U/L Normal 15-37 [facility] Comment on above: Order Comment: 'TROP ' Serial specimen #1, #2 or #3: 1 Performed By: #### L 501.2450, L100.0100, L501.4020, L500.4050 ####[facility] [address] [place], [address] Bilirubin [Mass/Vol] 1.30 mg/dL High 0.20-1.00 [facility] Comment on above: Order Comment: 'TROP ' Serial specimen #1, #2 or #3: 1 Result Comment: For patients on eltrombopag therapy, use of Dimension Hale TBIL is not recommended. Performed By: #### L 501.2450, L100.0100, L501.4020, L500.4050 ####[facility] [address] [place], [address] BUN/CRE 19.1 RATIO Normal 10-20 [facility] Comment on above: Order Comment: 'TROP ' Serial specimen #1, #2 or #3: 1 Performed By: #### L 501.2450, L100.0100, L501.4020, L500.4050 ####[facility] [address] [place], [address] CA,Total 9.5 mg/dL Normal 8.5-10.1 [facility] Comment on above: Order Comment: 'TROP ' Serial specimen #1, #2 or #3: 1 Performed By: #### L 501.2450, L100.0100, L501.4020, L500.4050 ####[facility] [address] [place], [address] Chloride [Moles/Vol] 105 mmol/L Normal 98-107 [facility] Comment on above: Order Comment: 'TROP ' Serial specimen #1, #2 or #3: 1 Performed By: #### L 501.2450, L100.0100, L501.4020, L500.4050 ####[facility] [address] [place], [address] CO2 [Moles/Vol] 17.0 mmol/L Low 21.0-32.0 [facility] Comment on above: Order Comment: 'TROP ' Serial specimen #1, #2 or #3: 1 Performed By: #### L 501.2450, L100.0100, L501.4020, L500.4050 ####[facility] [address] [place], [address] Creatinine [Mass/Vol] 0.94 mg/dL Normal 0.55-1.02 [facility] Comment on above: Order Comment: 'TROP ' Serial specimen #1, #2 or #3: 1 Result Comment: The validity of the calculated GFR GFRAA in patients over70 years has not been determined. Clinical correlation isessential. Performed By: #### L 501.2450, L100.0100, L501.4020, L500.4050 ####[facility] [address] [place], [address] ECRCL 92.29 ml/min Normal [facility] Comment on above: Order Comment: 'TROP ' Serial specimen #1, #2 or #3: 1 Performed By: #### L 501.2450, L100.0100, L501.4020, L500.4050 ####[facility] [address] [place], [address] EST GFR - AA 90 mL/min Normal >60 [facility] Comment on above: Order Comment: 'TROP ' Serial specimen #1, #2 or #3: 1 Result Comment: Afri can [place] GFR Calc Performed By: #### L 501.2450, L100.0100, L501.4020, L500.4050 ####[facility] [address] [place], [address] GAP 14 Normal 5-15 [facility] Comment on above: Order Comment: 'TROP ' Serial specimen #1, #2 or #3: 1 Performed By: #### L 501.2450, L100.0100, L501.4020, L500.4050 ####[facility] [address] [place], [address] GFR/1.73 sq M.predicted among non-blacks MDRD (S/P/Bld) [Vol rate/Area] 74 mL/min/{1.73_m2} Normal >60 [facility] Comment on above: Order Comment: 'TROP ' Serial specimen #1, #2 or #3: 1 Result Comment: Non- GFR Calc Performed By: #### L 501.2450, L100.0100, L501.4020, L500.4050 ####[facility] [address] [place], [address] Globulin (S) [Mass/Vol] 3.5 g/dL Normal 2.2-4.2 [facility] Comment on above: Order Comment: 'TROP ' Serial specimen #1, #2 or #3: 1 Performed By: #### L 501.2450, L100.0100, L501.4020, L500.4050 ####[facility] [address] [place], [address] Glucose [Mass/Vol] 355 mg/dL High 74-106 [facility] Comment on above: Order Comment: 'TROP ' Serial specimen #1, #2 or #3: 1 Result Comment: Gluc ose result greater than or equal to 200 mg/dLsuggests DIABETES MELLITUS per A.D.A. criteria. Performed By: #### L 501.2450, L100.0100, L501.4020, L500.4050 ####[facility] [address] [place], [address] Potassium [Moles/Vol] 3.4 mmol/L Low 3.5-5.1 [facility] Comment on above: Order Comment: 'TROP ' Serial specimen #1, #2 or #3: 1 Performed By: #### L 501.2450, L100.0100, L501.4020, L500.4050 ####[facility] [address] [place], [address] Sodium [Moles/Vol] 136 mmol/L Normal 136-145 [facility] Comment on above: Order Comment: 'TROP ' Serial specimen #1, #2 or #3: 1 Performed By: #### L 501.2450, L100.0100, L501.4020, L500.4050 ####[facility] [address] [place], [address] T PROT 7.6 g/dL Normal 6.4-8.2 [facility] Comment on above: Order Comment: 'TROP ' Serial specimen #1, #2 or #3: 1 Performed By: #### L 501.2450, L100.0100, L501.4020, L500.4050 ####[facility] [address] [place], [address] Urea nitrogen [Mass/Vol] 18 mg/dL Normal 7-18 [facility] Comment on above: Order Comment: 'TROP ' Serial specimen #1, #2 or #3: 1 Performed By: #### L 501.2450, L100.0100, L501.4020, L500.4050 ####[facility] [address] [place], [address] Emergency Department Summary on 06-07-2024 Emergency Department Summary Normal [facility] H AND P Exam - Hospitaliston 06-07-2024 H&P Exam - Hospitalist Normal [facility] L501.4020on 06-07-2024 TROPONIN-I HS 4 pg/mL Normal 3.0-54.0 [facility] Comment on above: Order Comment: 'TROP ' Serial specimen #1, #2 or #3: 1 Result Comment: Plea se Note: New Test Units and Gender Specific Reference Ranges. For more information see Policy Stat Procedure Hale High Sensitivity Troponin (TNIH) and attachments. Performed By: #### L 501.2450, L100.0100, L501.4020, L500.4050 ####[facility] [address] [place], [address] Lipaseon 06-07-2024 Lipase [Catalytic activity/Vol] 10 U/L Low 13-75 [facility] Comment on above: Order Comment: 'TROP ' Serial specimen #1, #2 or #3: 1 Result Comment: Plea se note:LIPASE revised reference range effective 22.New Lipase methodology. Expected to produce lower valuesthan the previous assay method.NEW Reference Range: 13 - 75 U/L Performed By: #### L 501.2450, L100.0100, L501.4020, L500.4050 ####[facility] [address] [place], [address] ,Urineon 06-07-2024 Beta HCG ( test) Ql (U) Negative Normal [facility] Comment on above: Order Comment: CLEAN CATCH Result Comment: Very dilute urine specimens, as indicated by a low specificgravity, may not contain solar sales representative levels of hCG.If is still suspected, a first morning urinespecimen should be collected 48 hours later and tested. Performed By: #### L 400.0001, L400.7600 ####[facility] [address] [place], [address] Urinalysis, Completeon 06-07 BACTERIA 0 SEEN Normal None Seen [facility] Comment on above: Order Comment: CLEAN CATCH Performed By: #### L 400.0001, L400.7600 ####[facility] [address] [place], [address] EPI,SQUAMOUS 0 SEEN Normal 5-10 [facility] Comment on above: Order Comment: CLEAN CATCH Performed By: #### L 400.0001, L400.7600 ####[facility] [address] [place], [address] Mucus Ql (Urine sed) 0 SEEN Normal [facility] Comment on above: Order Comment: CLEAN CATCH Performed By: #### L 400.0001, L400.7600 ####[facility] [address] [place], [address] RBC 0 SEEN Normal 0-5 [facility] Comment on above: Order Comment: CLEAN CATCH Performed By: #### L 400.0001, L400.7600 ####[facility] [address] [place], [address] WBC 0 SEEN Normal 0-5 [facility] Comment on above: Order Comment: CLEAN CATCH Performed By: #### L 400.0001, L400.7600 ####[facility] [address] [place], [address] CNPDanitza 05-16-2024 GIOVANA Telephone (ENDOIN) KATHLEEN VILLA ([id number]) 1995 F CHT Date Time Provider Department [...] pay the $3000,was told to call her website designer for assistance. Re Gonzalez RN 05/17/2024 10:09 AM Signed [facility] 03/12/24 Joshua CAMPA 05/28/24 Josue Pt uses [facility] for supplies Has had loaner pump x3 months through [employer] and now has to return it or pay $3000 out of pocket. Advised pt she has to call [facility] and have them send us an [...] Please keep me updated if any issues. eJssica Guerrero APRN.SUPERVISOR AGRICULTURAL EDUCATION Sary PssZelda 05/24/2024 1:01 PM Signed Patient has to reschedule her may appt and will be completely out of her pump supplies before her next June appt. Please advise she needs her pump suppllies Re Gonzalez RN 05/24/2024 1:41 PM Signed Spoke to pt. [facility] 03/12/24 ( we can sent notes over, if needed) NOV 07/19/24 We have not received any new order forms from [facility] or [employer]. Advised pt to reach out. 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 Normal [facility] 36on 05-06-2024 36 Medication: Skyrizi 150mg/ml Dosing Schedule: 150mg every 12 weeks Prior Authorization: Submitted date: 05.06.2024 PA reference #: [id number] Approval dates: 05.06.2024-08.27.2024 Caitie Clinical Liaison [facility] [phone] Normal [facility] 12 Lead EKGon 04-21-2024 12 Lead EKG Normal [facility] Acetone Serumon 08-25-2024 ACETONE SERUM Negative Normal NEG [facility] Comment on above: Performed By: #### L 500.2500, L501.6900 ####[facility] [address] [place], [address] Basic Metabolic Profile (BMP )on 04-21-2024 BUN/CRE 20.4 RATIO High 10-20 [facility] Comment on above: Performed By: #### L 500.2500, L501.6900 ####[facility] [address] [place], [address] CA,Total 7.3 mg/dL Low 8.5-10.1 [facility] Comment on above: Performed By: #### L 500.2500, L501.6900 ####[facility] [address] [place], [address] Chloride [Moles/Vol] 113 mmol/L High 98-107 [facility] Comment on above: Performed By: #### L 500.2500, L501.6900 ####[facility] [address] [place], [address] CO2 [Moles/Vol] 23.0 mmol/L Normal 21.0-32.0 [facility] Comment on above: Performed By: #### L 500.2500, L501.6900 ####[facility] [address] [place], [address] Creatinine [Mass/Vol] 0.68 mg/dL Normal 0.55-1.02 [facility] Comment on above: Result Comment: The validity of the calculated GFR GFRAA in patients over70 years has not been determined. Clinical correlation isessential. Performed By: #### L 500.2500, L501.6900 ####[facility] [address] [place], [address] ECRCL 127.57 ml/min Normal [facility] Comment on above: Performed By: #### L 500.2500, L501.6900 ####[facility] [address] [place], [address] EST GFR - AA 130 mL/min Normal >60 [facility] Comment on above: Result Comment: Afri can [place] GFR Calc Performed By: #### L 500.2500, L501.6900 ####[facility] [address] [place], [address] GAP 7 Normal 5-15 [facility] Comment on above: Performed By: #### L 500.2500, L501.6900 ####[facility] [address] [place], [address] GFR/1.73 sq M.predicted among non-blacks MDRD (S/P/Bld) [Vol rate/Area] 107 mL/min/{1.73_m2} Normal >60 [facility] Comment on above: Result Comment: Non- GFR Calc Performed By: #### L 500.2500, L501.6900 ####[facility] [address] [place], [address] Glucose [Mass/Vol] 173 mg/dL High 74-106 [facility] Comment on above: Result Comment: Fast ing Glucose result greater than or equal to 126 mg/dLsuggests DIABETES MELLITUS per A.D.A. criteria. Performed By: #### L 500.2500, L501.6900 ####[facility] [address] [place], [address] Potassium [Moles/Vol] 2.7 mmol/L Invalid Interpretation Code 3.5-5.1 [facility] Comment on above: Result Comment: Crit ical Result(s) Called at: 21:44:18 04/21/2024 by: DEX. Results read back by Faith Performed By: #### L 500.2500, L501.6900 ####[facility] [address] [place], [address] Sodium [Moles/Vol] 143 mmol/L Normal 136-145 [facility] Comment on above: Performed By: #### L 500.2500, L501.6900 ####[facility] [address] [place], [address] Urea nitrogen [Mass/Vol] 14 mg/dL Normal 7-18 [facility] Comment on above: Performed By: #### L 500.2500, L501.6900 ####[facility] [address] [place], [address] CBC W/Diff, Automatedon 03-29 Anisocytosis Ql (Bld) RARE Normal [facility] Comment on above: Performed By: #### L 100.0100 ####[facility] [address] [place], [address] PLT EST MOD DEC Normal ADEQ [facility] Comment on above: Performed By: #### L 100.0100 ####[facility] [address] [place], [address] RED CELL MORPH NORM C+C Normal NORM C C [facility] Comment on above: Performed By: #### L 100.0100 ####[facility] [address] [place], [address] Emergency Department Summary on 04-21-2024 Emergency Department Summary Normal [facility] Lipaseon 04-21-2024 Lipase [Catalytic activity/Vol] 14 U/L Normal 13-75 [facility] Comment on above: Result Comment: Sulma schmitz note:LIPASE revised reference range effective 22.New Lipase methodology. Expected to produce lower valuesthan the previous assay method.NEW Reference Range: 13 - 75 U/L Performed By: #### L 500.3400, L501.2450 ####[facility] [address] [place], [address] Liver Profileon 04-21-2024 Albumin [Mass/Vol] 3.0 g/dL Low 3.2-5.0 [facility] Comment on above: Performed By: #### L 500.3400, L501.2450 ####[facility] [address] [place], [address] ALK P 65 U/L Normal 45-117 [facility] Comment on above: Performed By: #### L 500.3400, L501.2450 ####[facility] [address] [place], [address] ALT [Catalytic activity/Vol] 15 U/L Normal 13-56 [facility] Comment on above: Performed By: #### L 500.3400, L501.2450 ####[facility] [address] [place], [address] AST [Catalytic activity/Vol] 10 U/L Low 15-37 [facility] Comment on above: Performed By: #### L 500.3400, L501.2450 ####[facility] [address] [place], [address] Bilirubin [Mass/Vol] 0.40 mg/dL Normal 0.20-1.00 [facility] Comment on above: Result Comment: For patients on eltrombopag therapy, use of Dimension [place] TBIL is not recommended. Performed By: #### L 500.3400, L501.2450 ####[facility] [address] [place], [address] Bilirubin.direct [Mass/Vol] 0.16 mg/dL Normal 0.00-0.30 [facility] Comment on above: Performed By: #### L 500.3400, L501.2450 ####[facility] [address] [place], [address] Globulin (S) [Mass/Vol] 2.6 g/dL Normal 2.2-4.2 [facility] Comment on above: Performed By: #### L 500.3400, L501.2450 ####[facility] [address] [place], [place], [address] T PROT 5.6 g/dL Low 6.4-8.2 [facility] Comment on above: Performed By: #### L 500.3400, L501.2450 ####[facility] [address] [place], [place], [address] ,Serum,hCG Quali.on 04-21-2024 HCG, SERUM QUAL Negative Normal [facility] Comment on above: Performed By: #### L 091.6706 ####[facility] [address] [place], [address] CNOVon 03-12-2024 CNOV Office Visit (ENDOIN ) DAISYKATHLEEN Richter Brynn ([id number]) 1995 F CHT Date Time Provider Department [...] 149 Trigly (more content not included)... Normal [facility] HEMOGLOBIN A1C (POC)on 03-12 HbA1c (Bld) [Mass fraction] 8.8 % Abnormal 4.3 - 5.6 % [facility] Comment on above: Location:[address], [place], [place], [address] Point of care (POC) Hemoglobin A1c (HGBA1C) [...] specific diabetes management situations: The POC device ethylene oxide panelboard operator provides a normal range of 4.2% to 6.5% for the HGBA1C POC test. However, the [place] Diabetes [employer] guidelines indicate that patients with [...] Interpretation and review of laboratory results Abnormal [facility] CNPNon 03-02-2024 CNPN Telephone (ENDOIN) KATHLEEN VILLA ([id number]) 1995 F CHT Date Time Provider Department [...] - Rash Date Reviewed: 12/13/2023 Reviewed by: Motley, Jessica, FAMILY PROGRAM SPECIALIST.SUPERVISOR AGRICULTURAL EDUCATION - Fully Assessed Reason for Visit: Forms [...] (post-traumatic stress disorder) [F43.10] 12/25/2012 DVT prophylaxis [[id number]] 12/25/2012 09/04/2013 DISPOSITION AND FOLLOW-UP [V999.01] 12/25/2012 09/04/2013 HTN (hypertension) [I10] Hypertension in , antepartum [O16.9] 09/19/2013 01/08/2014 GBS (group B Streptococcus carrier), +RV cultur*11/11/2013 04/16/2014 [Z34.90] 11/22/2013 04/16/2014 Diabetes mellitus in (HCC) [O24.919] 12/25/2013 04/16/2014 Diabetic ketoacidosis without coma associated w*01/08/2014 02/04/2023 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] 01/08/2014 DVT prophylaxis [[id number]] 02/25/2014 04/16/2014 care and examination [Z39.2] 02/25/2014 [...] Encounter Status:Closed by ESTRELLITA MCCLENDON on 03/05/24 [facility] 02-14-2024 CNPN Telephone (ENDOIN) KATHLEEN VILLA ([id number]) 1995 F [facility] Date Time Provider Department 02/14/24 KVNG LEWIS During your visit today, we recorded the following information about you: Jennifer Ramos 02/14/2024 1:51 PM Signed Patient stated that her 630G pump malfunctioned and she had to get a new one. Patient needs to now what settings to put the pump on. Patient can be reached at [phone] Estrellita Mcclendon, RN 02/14/2024 4:43 PM Signed [...] Date Reviewed: 12/13/2023 Reviewed by: Jessica Guerrero APRN.SUPERVISOR AGRICULTURAL EDUCATION - Fully Assessed Reason for Visit: machine [...] (post-traumatic stress disorder) [F43.10] 12/25/2012 DVT prophylaxis [[id number]] 12/25/2012 09/04/2013 DISPOSITION AND FOLLOW-UP [V999.01] 12/25/2012 09/04/2013 HTN (hypertension) [I10] Hypertension in , antepartum [O16.9] 09/19/2013 01/08/2014 GBS (group B Streptococcus carrier), +RV cultur*11/11/2013 04/16/2014 [Z34.90] 11/22/2013 04/16/2014 Diabetes mellitus in (HCC) [O24.919] 12/25/2013 04/16/2014 Diabetic ketoacidosis without coma associated w*01/08/2014 02/04/2023 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] 01/08/2014 DVT prophylaxis [[id number]] 02/25/2014 04/16/2014 care and examination [Z39.2] 02/25/2014 [...] pain [R10.8 (more content not included)... Normal [facility] CNPNon 02-13-2024 CNPN Telephone (ENDOMN) KATHLEEN VILLA ([id number]) 1995 F [facility] Date Time Provider Department [...] MD Clinical Fellow PGY-4 Endocrinology and Metabolism [place] Allergies As of Date: 02/13/2024 Noted Allergy [...] Date Reviewed: 12/13/2023 Reviewed by: Jessica Guerrero APRN.SUPERVISOR AGRICULTURAL EDUCATION - Fully Assessed Reason for Visit: Medication Problem [65] Returning Patient's Call [[phone]] Visit Diagnoses:Type 1 diabetes mellitus with hyperglycemia, with long-term current use of insulin ([facility]) [E10.65] Insulin pump status [Z96.41] [...] (post-traumatic stress disorder) [F43.10] 12/25/2012 DVT prophylaxis [[id number]] 12/25/2012 09/04/2013 DISPOSITION AND FOLLOW-UP [V999.01] 12/25/2012 09/04/2013 HTN (hypertension) [I10] Hypertension in , antepartum [O16.9] 09/19/2013 01/08/2014 GBS (group B Streptococcus carrier), +RV cultur*11/11/2013 04/16/2014 [Z34.90] 11/22/2013 04/16/2014 Diabetes mellitus in (HCC) [O24.919] 12/25/2013 04/16/2014 Diabetic ketoacidosis without coma associated w*01/08/2014 02/04/2023 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] 01/08/2014 DVT prophylaxis [[id number]] 02/25/2014 04/16/2014 care and examination [Z39.2] 02/25/2014 [...] 08/16/2022 Gastro (more content not included)... Normal [facility] CNOVon 12-13-2023 CNOV Office Visit (ENDOIN ) KATHLEEN VILLA ([id number]) 1995 F [facility] Date Time Provider Department 12/13/23 4:00 PM JESSICA GUERRERO During your visit today, we recorded the following information about you: Pulse Respiration Blood pressure Weight 80/minute 16/minute 139/87 77.1 kg Jessica Guerrero, FAMILY PROGRAM SPECIALIST.SUPERVISOR AGRICULTURAL EDUCATION 12/13/2023 4:53 PM Signed ENDOCRINOLOGY AND METABOLISM [...] Other maternal great grandma I reviewed the Aircraft Pilot's notes with this visit for vital signs, [...] 1 DM (more content not included)... Normal [facility] HEMOGLOBIN A1C (POC)on 12-12 HbA1c (Bld) [Mass fraction] 7.1 % Abnormal 4.3 - 5.6 % [facility] Absolute lymphocyte countOrd ered By: Lin Johansen on 10-25-2023 Lymphocytes Auto (Unsp spec) [#/Vol] 2.23 10*3/uL 0.83-4.51 [facility] Automated lymphocyte count a s percentage of total leukocytesOrdered By: Lin Johansen on 10-25-2023 Lymphocytes/100 WBC Auto (Unsp spec) 17.4 % 19-41 [facility] Basophil percentageOrdered B y: Lin Johansen on 10-25-2023 Basophils/100 WBC (Bld) 0.8 % 0-1 [facility] Chloride [Moles/Vol] 106 mmol/L 98-107 [facility] Eosinophils/100 WBC (Bld) 0.7 % 0-5 [facility] Glucose [Mass/Vol] 255 mg/dL 74-106 [facility] Comment on above: Glucose result great er than or equal to 200 mg/dLsuggests DIABETES MELLITUS per A.D.A. criteria. Hemoglobin (Bld) [Mass/Vol] 14.3 g/dL 12.0-15.0 [facility] Monocytes/100 WBC (Bld) 3.7 % 0-10 [facility] Neutrophils (Bld) [#/Vol] 9.8 10*3/uL 2.0-7.7 [facility] Neutrophils/100 WBC (Bld) 76.5 % 47-70 [facility] Potassium [Moles/Vol] 4.3 mmol/L 3.5-5.1 [facility] Sodium [Moles/Vol] 137 mmol/L 136-145 [facility] WBC (Bld) [#/Vol] 12.8 10*3/uL 4.4-11.0 [facility] Determination of erythrocyte mean corpuscular volume (MCV)Ordered By: Lin Johansen on 10-25-2023 MCV (RBC) [Entitic vol] 89.6 fL 81-99 [facility] Erythrocyte distribution wid th ratioOrdered By: Lin Johansen on 10-25-2023 Erythrocyte distribution width (RBC) [Ratio] 13.9 % 11.6-14.6 [facility] Erythrocyte distribution wid th standard deviationOrdered By: Lin Johansen on 10-25-2023 Erythrocyte distribution width (RBC) [Entitic vol] 46.0 fL 35.1-43.9 [facility] Hematocrit Auto (Bld) [Volum e fraction]Ordered By: Lin Johansen on 10-25-2023 Hematocrit (Bld) [Volume fraction] 44.7 % 37-47 [facility] Immature granulocytes/100 WB C Auto (Bld)Ordered By: Lin Johansen on 10-25-2023 Immature granulocytes/100 WBC (Bld) 0.900 % 0.0-0.9 [facility] Comment on above: IG% - Immature Granu locytes (promyelocytes, myelocytes and metamyelocytes) > 1% indicates that a LEFT SHIFT is Present. Laboratory - Chemistry and C hemistry - challengeOrdered By: Lin Johansen on 10-25-2023 CO2 [Moles/Vol] 23.0 mmol/L 21.0-32.0 [facility] Urea nitrogen/Creatinine [Mass ratio] 21.5 mg/mg 10-20 [facility] Laboratory - Drug toxicology Ordered By: Lin Johansen on 10-25-2023 Amphetamines Ql (U) Negative <1000 ng/mL [facility] Benzodiazepines Ql (U) Negative < 200 ng/mL [facility] Cannabinoids Screen Ql (U) Positive < 50 ng/mL [facility] Cocaine Ql (U) Negative < 300 ng/mL [facility] Opiates Ql (U) Negative < 300 ng/mL [facility] Laboratory - Hematology and Cell countsOrdered By: Lin Johansen on 10-25-2023 MCH (RBC) [Entitic mass] 28.7 pg 27.0-32.0 [facility] MCHC (RBC) [Mass/Vol] 32.0 g/dL 32-36 [facility] Nucleated RBC/100 WBC (Bld) [Ratio] 0 % 0-5 [facility] Platelet mean volume (Bld) [Entitic vol] 11.9 fL 6.2-12.0 [facility] Platelets (Bld) [#/Vol] 171 10*3/uL 150-450 [facility] No Panel InformationOrdered By: Lin Johansen on 10-25-2023 Estimated Creatinine Clearance Calc 109.81 ml/min [facility] Estimated GFR (MDRD) Amer 110 mL/min >60 [facility] Comment on above: GFR Calc Estimated GFR (MDRD) Non-Af Amer 91 mL/min >60 [facility] Comment on above: Non- GFR Calc Ethyl Alcohol Level < 3.0 mg/dL [facility] Comment on above: The serum:whole bloo d ethanol ratio is approximately 1.14and varies slightly with hematocrit. Medical Alcohol reference interval and critical value innon-tolerant individuals; 50 - 100 Impairment 100 Intoxication 100 - 250 Severe Poisoning 250 - 400 Deep/possible fatal coma MDMA (Ecstasy) Screen Negative < 500 ng/mL [facility] Urine Barbiturates Screen Negative < 200 ng/mL [facility] Urine Drug Screen Comment [facility] Comment on above: CONFIRMATORY TESTING FOR [...] Methadone Screen Negative < 300 ng/mL [facility] RBC Auto (Bld) [#/Vol]Ordere d By: Lin Johansen on 10-25-2023 RBC (Bld) [#/Vol] 4.99 10*6/uL 4.2-5.4 [facility] Serum or plasma calcium milli urement (mass/volume)Ordered By: Lin Johansen on 10-25-2023 Calcium [Mass/Vol] 9.0 mg/dL 8.5-10.1 [facility] Serum or plasma choriogonado tropin detectionOrdered By: Lin Johansen on 10-25-2023 HCG ( test) Ql Negative [facility] Serum or plasma creatinine m easurement (mass/volume)Ordered By: Lin Johansen on 10-25-2023 Creatinine [Mass/Vol] 0.79 mg/dL 0.55-1.02 [facility] Comment on above: The validity of the calculated GFR & GFRAA in patients over 70 years has not been determined. Clinical correlation is essential. Serum or plasma urea nitroge n measurement (mass/volume)Ordered By: Lin Johansen on 10-25-2023 Urea nitrogen [Mass/Vol] 17 mg/dL 7-18 [facility] Thin prep Papanicolaou smear with manual screeningOrdered By: Lin Johansen on 10-25-2023 Thin prep Papanicolaou smear with manual screening 60 mg/dL 74-106 [facility] Comment on above: MANAGEMENT OF PATIEN T CARE PER NURSING PROTOCOL Thin prep Papanicolaou smear with manual screening 8 5-15 [facility] Urine phencyclidine (PCP) de tectionOrdered By: Lin Johansen on 10-25-2023 Phencyclidine Ql (U) Negative < 25 ng/mL [facility] Absolute lymphocyte countOrd ered By: Vita Jefferson on 10-18-2023 Lymphocytes Auto (Unsp spec) [#/Vol] 2.87 10*3/uL 0.83-4.51 [facility] Automated lymphocyte count a s percentage of total leukocytesOrdered By: Vita Jefferson on 10-18-2023 Lymphocytes/100 WBC Auto (Unsp spec) 32.5 % 19-41 [facility] Basophil percentageOrdered B y: Vita Jefferson on 10-18-2023 Basophils/100 WBC (Bld) 0.3 % 0-1 [facility] Chloride [Moles/Vol] 110 mmol/L 98-107 [facility] Eosinophils/100 WBC (Bld) 1.0 % 0-5 [facility] Glucose [Mass/Vol] 227 mg/dL 74-106 [facility] Comment on above: Glucose result great er than or equal to 200 mg/dLsuggests DIABETES MELLITUS per A.D.A. criteria. Hemoglobin (Bld) [Mass/Vol] 12.0 g/dL 12.0-15.0 [facility] Monocytes/100 WBC (Bld) 6.0 % 0-10 [facility] Neutrophils (Bld) [#/Vol] 5.3 10*3/uL 2.0-7.7 [facility] Neutrophils/100 WBC (Bld) 59.5 % 47-70 [facility] Potassium [Moles/Vol] 4.1 mmol/L 3.5-5.1 [facility] Sodium [Moles/Vol] 138 mmol/L 136-145 [facility] WBC (Bld) [#/Vol] 8.8 10*3/uL 4.4-11.0 [facility] Determination of erythrocyte mean corpuscular volume (MCV)Ordered By: Vita Jefferson on 10-18-2023 MCV (RBC) [Entitic vol] 89.4 fL 81-99 [facility] Erythrocyte distribution wid th ratioOrdered By: Vita Jefferson on 10-18-2023 Erythrocyte distribution width (RBC) [Ratio] 13.2 % 11.6-14.6 [facility] Erythrocyte distribution wid th standard deviationOrdered By: Vita Jefferson on 10-18-2023 Erythrocyte distribution width (RBC) [Entitic vol] 43.0 fL 35.1-43.9 [facility] Hematocrit Auto (Bld) [Volum e fraction]Ordered By: Vitaselene Jefferson on 10-18-2023 Hematocrit (Bld) [Volume fraction] 36.4 % 37-47 [facility] Immature granulocytes/100 WB C Auto (Bld)Ordered By: Vitaselene Jefferson on 10-18-2023 Immature granulocytes/100 WBC (Bld) 0.700 % 0.0-0.9 [facility] Comment on above: IG% - Immature Granu locytes (promyelocytes, myelocytes and metamyelocytes) > 1% indicates that a LEFT SHIFT is Present. Laboratory - Chemistry and C hemistry - challengeOrdered By: Vita Jefferson on 10-18-2023 CO2 [Moles/Vol] 25.0 mmol/L 21.0-32.0 [facility] Urea nitrogen/Creatinine [Mass ratio] 24.0 mg/mg 10-20 [facility] Laboratory - Hematology and Cell countsOrdered By: Vita Jefferson on 10-18-2023 MCH (RBC) [Entitic mass] 29.5 pg 27.0-32.0 [facility] MCHC (RBC) [Mass/Vol] 33.0 g/dL 32-36 [facility] Nucleated RBC/100 WBC (Bld) [Ratio] 0 % 0-5 [facility] Platelet mean volume (Bld) [Entitic vol] 12.1 fL 6.2-12.0 [facility] Platelets (Bld) [#/Vol] 111 10*3/uL 150-450 [facility] No Panel InformationOrdered By: Vita Jefferson on 10-18-2023 Estimated Creatinine Clearance Calc 129.48 ml/min [facility] Estimated GFR (MDRD) Amer 135 mL/min >60 [facility] Comment on above: GFR Calc Estimated GFR (MDRD) Non-Af Amer 111 mL/min >60 [facility] Comment on above: Non- GFR Calc RBC Auto (Bld) [#/Vol]Ordere d By: Vita Jefferson on 10-18-2023 RBC (Bld) [#/Vol] 4.07 10*6/uL 4.2-5.4 [facility] Serum or plasma calcium milli urement (mass/volume)Ordered By: Vita Jefferson on 10-18-2023 Calcium [Mass/Vol] 7.6 mg/dL 8.5-10.1 [facility] Serum or plasma creatinine m easurement (mass/volume)Ordered By: Vita Jefferson on 10-18-2023 Creatinine [Mass/Vol] 0.67 mg/dL 0.55-1.02 [facility] Comment on above: The validity of the calculated GFR & GFRAA in patients over 70 years has not been determined. Clinical correlation is essential. Serum or plasma urea nitroge n measurement (mass/volume)Ordered By: Vita Jefferson on 10-18-2023 Urea nitrogen [Mass/Vol] 16 mg/dL 7-18 [facility] Thin prep Papanicolaou smear with manual screeningOrdered By: Vita Jefferson on 10-18-2023 Thin prep Papanicolaou smear with manual screening 3 5-15 [facility] Absolute lymphocyte countOrd ered By: Alexandro Garces on 10-17-2023 Lymphocytes Auto (Unsp spec) [#/Vol] 1.06 10*3/uL 0.83-4.51 [facility] Automated lymphocyte count a s percentage of total leukocytesOrdered By: Alexandro Garces on 10-17-2023 Lymphocytes/100 WBC Auto (Unsp spec) 7.8 % 19-41 [facility] Basophil percentageOrdered B y: Alexandro Garces on 10-17-2023 Basophils/100 WBC (Bld) 0.4 % 0-1 [facility] Chloride [Moles/Vol] 98 mmol/L 98-107 [facility] Eosinophils/100 WBC (Bld) 0.1 % 0-5 [facility] Glucose [Mass/Vol] 534 mg/dL 74-106 [facility] Comment on above: Critical Result(s) C alled at: 10:55:26 10/17/2023 by: Nan Bray. Results read back by same.Glucose result greater than or equal to 200 mg/dLsuggests DIABETES MELLITUS per A.D.A. criteria. Hemoglobin (Bld) [Mass/Vol] 13.6 g/dL 12.0-15.0 [facility] Monocytes/100 WBC (Bld) 2.4 % 0-10 [facility] Neutrophils (Bld) [#/Vol] 12.0 10*3/uL 2.0-7.7 [facility] Neutrophils/100 WBC (Bld) 88.4 % 47-70 [facility] Potassium [Moles/Vol] 4.8 mmol/L 3.5-5.1 [facility] Sodium [Moles/Vol] 132 mmol/L 136-145 [facility] WBC (Bld) [#/Vol] 13.6 10*3/uL 4.4-11.0 [facility] Determination of erythrocyte mean corpuscular volume (MCV)Ordered By: Alexandro Garces on 10-17-2023 MCV (RBC) [Entitic vol] 90.2 fL 81-99 [facility] Erythrocyte distribution wid th ratioOrdered By: Alexandro Garces on 10-17-2023 Erythrocyte distribution width (RBC) [Ratio] 13.1 % 11.6-14.6 [facility] Erythrocyte distribution wid th standard deviationOrdered By: Alexandro Garces on 10-17-2023 Erythrocyte distribution width (RBC) [Entitic vol] 43.1 fL 35.1-43.9 [facility] Hematocrit Auto (Bld) [Volum e fraction]Ordered By: Alexandro Garces on 10-17-2023 Hematocrit (Bld) [Volume fraction] 42.5 % 37-47 [facility] Immature granulocytes/100 WB C Auto (Bld)Ordered By: Alexandro Garces on 10-17-2023 Immature granulocytes/100 WBC (Bld) 0.900 % 0.0-0.9 [facility] Comment on above: IG% - Immature Granu locytes (promyelocytes, myelocytes and metamyelocytes) > 1% indicates that a LEFT SHIFT is Present. Laboratory - Chemistry and C hemistry - challengeOrdered By: Alexandro Garces on 10-17-2023 CO2 [Moles/Vol] 16.0 mmol/L 21.0-32.0 [facility] Urea nitrogen/Creatinine [Mass ratio] 18.6 mg/mg 10-20 [facility] Laboratory - Hematology and Cell countsOrdered By: Alexandro Garces on 10-17-2023 MCH (RBC) [Entitic mass] 28.9 pg 27.0-32.0 [facility] MCHC (RBC) [Mass/Vol] 32.0 g/dL 32-36 [facility] Nucleated RBC/100 WBC (Bld) [Ratio] 0 % 0-5 [facility] Platelet mean volume (Bld) [Entitic vol] 12.2 fL 6.2-12.0 [facility] Platelets (Bld) [#/Vol] 138 10*3/uL 150-450 [facility] No Panel InformationOrdered By: Alexandro Garces on 10-17-2023 Estimated Creatinine Clearance Calc 73.52 ml/min [facility] Estimated GFR (MDRD) Amer 70 mL/min >60 [facility] Comment on above: GFR Calc Estimated GFR (MDRD) Non-Af Amer 58 mL/min >60 [facility] Comment on above: Non- GFR Calc RBC Auto (Bld) [#/Vol]Ordere d By: Alexandro Garces on 10-17-2023 RBC (Bld) [#/Vol] 4.71 10*6/uL 4.2-5.4 [facility] Serum or plasma acetone milli urement (mass/volume)Ordered By: Alexandro Garces on 10-17-2023 Acetone [Mass/Vol] MODERATE NEG [facility] Serum or plasma calcium milli urement (mass/volume)Ordered By: Alexandro Garces on 10-17-2023 Calcium [Mass/Vol] 9.1 mg/dL 8.5-10.1 [facility] Serum or plasma creatinine m easurement (mass/volume)Ordered By: Alexandro Garces on 10-17-2023 Creatinine [Mass/Vol] 1.18 mg/dL 0.55-1.02 [facility] Comment on above: The validity of the calculated GFR & GFRAA in patients over 70 years has not been determined. Clinical correlation is essential. Serum or plasma urea nitroge n measurement (mass/volume)Ordered By: Alexandro Garces on 10-17-2023 Urea nitrogen [Mass/Vol] 22 mg/dL 7-18 [facility] Thin prep Papanicolaou smear with manual screeningOrdered By: Vita Jefferson on 10-17-2023 Thin prep Papanicolaou smear with manual screening 293 mg/dL 74-106 [facility] Comment on above: MANAGEMENT OF PATIEN T CARE PER NURSING PROTOCOL Thin prep Papanicolaou smear with manual screeningOrdered By: Alexandro Garces on 10-17-2023 Thin prep Papanicolaou smear with manual screening 18 5-15 [facility] Absolute lymphocyte countOrd ered By: Olvin Ibarra on 09-25-2023 Lymphocytes Auto (Unsp spec) [#/Vol] 0.95 10*3/uL 0.83-4.51 [facility] Automated lymphocyte count a s percentage of total leukocytesOrdered By: Olvin Ibarra on 09-25-2023 Lymphocytes/100 WBC Auto (Unsp spec) 15.8 % 19-41 [facility] Basophil percentageOrdered B y: Olvin Ibarra on 09-25-2023 Basophils/100 WBC (Bld) 0.3 % 0-1 [facility] Chloride [Moles/Vol] 106 mmol/L 98-107 [facility] Eosinophils/100 WBC (Bld) 0.2 % 0-5 [facility] Glucose [Mass/Vol] 331 mg/dL 74-106 [facility] Comment on above: Glucose result great er than or equal to 200 mg/dLsuggests DIABETES MELLITUS per A.D.A. criteria. Hemoglobin (Bld) [Mass/Vol] 13.2 g/dL 12.0-15.0 [facility] Monocytes/100 WBC (Bld) 12.0 % 0-10 [facility] Neutrophils (Bld) [#/Vol] 4.2 10*3/uL 2.0-7.7 [facility] Neutrophils/100 WBC (Bld) 70.4 % 47-70 [facility] Potassium [Moles/Vol] 3.7 mmol/L 3.5-5.1 [facility] Sodium [Moles/Vol] 135 mmol/L 136-145 [facility] WBC (Bld) [#/Vol] 6.0 10*3/uL 4.4-11.0 [facility] Blood platelet adequacy dete ction by light microscopyOrdered By: Olvin Ibarra on 09-25-2023 Platelets LM Ql (Bld) MOD DEC ADEQ [facility] Determination of erythrocyte mean corpuscular volume (MCV)Ordered By: Olvin Ibarra on 09-25-2023 MCV (RBC) [Entitic vol] 90.2 fL 81-99 [facility] Erythrocyte distribution wid th ratioOrdered By: Olvin Ibarra on 09-25-2023 Erythrocyte distribution width (RBC) [Ratio] 13.8 % 11.6-14.6 [facility] Erythrocyte distribution wid th standard deviationOrdered By: Olvin Ibarra on 09-25-2023 Erythrocyte distribution width (RBC) [Entitic vol] 45.7 fL 35.1-43.9 [facility] Hematocrit Auto (Bld) [Volum e fraction]Ordered By: Olvin Ibarra on 09-25-2023 Hematocrit (Bld) [Volume fraction] 41.6 % 37-47 [facility] Immature granulocytes/100 WB C Auto (Bld)Ordered By: Olvin Ibarra on 09-25-2023 Immature granulocytes/100 WBC (Bld) 1.300 % 0.0-0.9 [facility] Comment on above: IG% - Immature Granu locytes (promyelocytes, myelocytes and metamyelocytes) > 1% indicates that a LEFT SHIFT is Present. Laboratory - Chemistry and C hemistry - challengeOrdered By: Olvin Ibarra on 09-25-2023 CO2 [Moles/Vol] 18.0 mmol/L 21.0-32.0 [facility] Urea nitrogen/Creatinine [Mass ratio] 15.6 mg/mg 10-20 [facility] Laboratory - Hematology and Cell countsOrdered By: Olvin Ibarra on 09-25-2023 MCH (RBC) [Entitic mass] 28.6 pg 27.0-32.0 [facility] MCHC (RBC) [Mass/Vol] 31.7 g/dL 32-36 [facility] Nucleated RBC/100 WBC (Bld) [Ratio] 0 % 0-5 [facility] Platelets (Bld) [#/Vol] 76 10*3/uL 150-450 [facility] No Panel InformationOrdered By: Olvin Ibarra on 09-25-2023 Estimated Creatinine Clearance Calc 96.39 ml/min [facility] Estimated GFR (MDRD) Amer 96 mL/min >60 [facility] Comment on above: GFR Calc Estimated GFR (MDRD) Non-Af Amer 79 mL/min >60 [facility] Comment on above: Non- GFR Calc Platelet mean volume Dong-Ec ker (Bld) [Entitic vol]Ordered By: Olvin Ibarra on 09-25-2023 Platelet mean volume (Bld) [Entitic vol] 12.8 fL 6.2-12.0 [facility] RBC Auto (Bld) [#/Vol]Ordere d By: Olvin Ibarra on 09-25-2023 RBC (Bld) [#/Vol] 4.61 10*6/uL 4.2-5.4 [facility] Serum or plasma calcium milli urement (mass/volume)Ordered By: Olvin Ibarra on 09-25-2023 Calcium [Mass/Vol] 8.4 mg/dL 8.5-10.1 [facility] Serum or plasma creatinine m easurement (mass/volume)Ordered By: Olvin Ibarra on 09-25-2023 Creatinine [Mass/Vol] 0.90 mg/dL 0.55-1.02 [facility] Comment on above: The validity of the calculated GFR & GFRAA in patients over 70 years has not been determined. Clinical correlation is essential. Serum or plasma urea nitroge n measurement (mass/volume)Ordered By: Olvin Ibarra on 09-25-2023 Urea nitrogen [Mass/Vol] 14 mg/dL 7-18 [facility] Thin prep Papanicolaou smear with manual screeningOrdered By: Olvin Ibarra on 09-25-2023 Thin prep Papanicolaou smear with manual screening 11 5-15 [facility] Laboratory - Microbiology an d Antimicrobial susceptibilityOrdered By: Siddharth Michelle on 09-24-2023 SARS-CoV-2 (COVID-19) RNA DANIEL+probe Ql (Unsp spec) Influenzae B [facility] Absolute lymphocyte countOrd ered By: Rm Chirinos on 09-20-2023 Lymphocytes Auto (Unsp spec) [#/Vol] 0.75 10*3/uL 0.83-4.51 [facility] Automated lymphocyte count a s percentage of total leukocytesOrdered By: Rm Chirinos on 09-20-2023 Lymphocytes/100 WBC Auto (Unsp spec) 4.6 % 19-41 [facility] Base excessOrdered By: Rm Mayur allo on 09-20-2023 Base excess Calc (BldV) [Moles/Vol] -5 mmol/L -1.0-3.5 [facility] Basophil percentageOrdered B y: Rm Chirinos on 09-20-2023 Basophil percentage 0 SEEN /hpf 0-5 [facility] Basophils/100 WBC (Bld) 0.4 % 0-1 [facility] Chloride [Moles/Vol] 102 mmol/L 98-107 [facility] Eosinophils/100 WBC (Bld) 0.0 % 0-5 [facility] Glucose [Mass/Vol] 534 mg/dL 74-106 [facility] Comment on above: Critical Result(s) C alled at: 12:17:31 09/20/2023 by: Reid Rogers. Colin Lo RN (ER). Results read back by same.Glucose result greater than or equal to 200 mg/dLsuggests DIABETES MELLITUS per A.D.A. criteria. Hemoglobin (Bld) [Mass/Vol] 13.4 g/dL 12.0-15.0 [facility] Monocytes/100 WBC (Bld) 2.8 % 0-10 [facility] Neutrophils (Bld) [#/Vol] 14.7 10*3/uL 2.0-7.7 [facility] Neutrophils/100 WBC (Bld) 91.2 % 47-70 [facility] Potassium [Moles/Vol] 4.9 mmol/L 3.5-5.1 [facility] Sodium [Moles/Vol] 132 mmol/L 136-145 [facility] WBC (Bld) [#/Vol] 16.2 10*3/uL 4.4-11.0 [facility] Bilirubin Test strip Ql (U)O rdered By: Rm Chirinos on 09-20-2023 Bilirubin Ql (U) Negative Negative [facility] CO2 (BldV) [Moles/Vol]Ordere d By: Rm Chirinos on 09-20-2023 CO2 [Moles/Vol] 22 mmol/L 23-33 [facility] Determination of erythrocyte mean corpuscular volume (MCV)Ordered By: Rm Chirinos on 09-20-2023 MCV (RBC) [Entitic vol] 90.3 fL 81-99 [facility] Erythrocyte distribution wid th ratioOrdered By: Rmej Chirinos on 09-20-2023 Erythrocyte distribution width (RBC) [Ratio] 13.5 % 11.6-14.6 [facility] Erythrocyte distribution wid th standard deviationOrdered By: Rmej Chirinos on 09-20-2023 Erythrocyte distribution width (RBC) [Entitic vol] 44.9 fL 35.1-43.9 [facility] Hematocrit Auto (Bld) [Volum e fraction]Ordered By: Rmej Chirinos on 09-20-2023 Hematocrit (Bld) [Volume fraction] 41.8 % 37-47 [facility] Immature granulocytes/100 WB C Auto (Bld)Ordered By: Rmej Chirinos on 09-20-2023 Immature granulocytes/100 WBC (Bld) 1.000 % 0.0-0.9 [facility] Comment on above: IG% - Immature Granu locytes (promyelocytes, myelocytes and metamyelocytes) > 1% indicates that a LEFT SHIFT is Present. Ketones Test strip Ql (U)Ord ered By: Rm Chirinos on 09-20-2023 Ketones Ql (U) 150 mg/dl Negative [facility] Comment on above: CRITICAL VALUE *HCRI TICAL VALUE VERIFIED. CALLED TO WILFREDO SALEEM (ER)09/20/23 1215 [employer].RESULTS READ BACK BY SAME. Laboratory - Chemistry and C hemistry - challengeOrdered By: Rm Chirinos on 09-20-2023 CO2 [Moles/Vol] 21.0 mmol/L 21.0-32.0 [facility] Urea nitrogen/Creatinine [Mass ratio] 19.1 mg/mg 10-20 [facility] Laboratory - Hematology and Cell countsOrdered By: Rm Chirinos on 09-20-2023 MCH (RBC) [Entitic mass] 28.9 pg 27.0-32.0 [facility] MCHC (RBC) [Mass/Vol] 32.1 g/dL 32-36 [facility] Nucleated RBC/100 WBC (Bld) [Ratio] 0 % 0-5 [facility] Platelets (Bld) [#/Vol] 111 10*3/uL 150-450 [facility] Mucus LM Ql (Urine sed)Order ed By: Rm Chirinos on 09-20-2023 Mucus Ql (Urine sed) 0 SEEN /hpf [facility] Nitrite Test strip Ql (U)Ord ered By: Rm Chirinos on 09-20-2023 Nitrite Ql (U) Negative Negative [facility] No Panel InformationOrdered By: Rm Chirinos on 09-20-2023 Blood Gas Sample Site Not entered [facility] Blood Gas Specimen Type ISABELLE [facility] Oxygen Delivery Device Room Air [facility] Urine RBC 0 SEEN /hpf 0-5 [facility] Estimated Creatinine Clearance Calc 93.93 ml/min [facility] Estimated GFR (MDRD) Amer 85 mL/min >60 [facility] Comment on above: GFR Calc Estimated GFR (MDRD) Non-Af Amer 70 mL/min >60 [facility] Comment on above: Non- GFR Calc PCO2 venousOrdered By: Rm siddiqi on 09-20-2023 CO2 (BldV) [Partial pressure] 37.3 mm[Hg] 41-51 [facility] PO2 venousOrdered By: Rm sahni on 09-20-2023 Oxygen (BldV) [Partial pressure] 64 mm[Hg] 25-40 [facility] Platelet mean volume Dong-Ec ker (Bld) [Entitic vol]Ordered By: Rm Chirinos on 09-20-2023 Platelet mean volume (Bld) [Entitic vol] 13.3 fL 6.2-12.0 [facility] Protein Test strip Ql (U)Ord ered By: Rm Chirinos on 09-20-2023 Protein Ql (U) 15 mg/dl Negative [facility] RBC Auto (Bld) [#/Vol]Ordere d By: Rm Chirinos on 09-20-2023 RBC (Bld) [#/Vol] 4.63 10*6/uL 4.2-5.4 [facility] Serum or plasma calcium milli urement (mass/volume)Ordered By: Rm Chirinos on 09-20-2023 Calcium [Mass/Vol] 8.8 mg/dL 8.5-10.1 [facility] Serum or plasma creatinine m easurement (mass/volume)Ordered By: Rm Chirinos on 09-20-2023 Creatinine [Mass/Vol] 1.00 mg/dL 0.55-1.02 [facility] Comment on above: The validity of the calculated GFR & GFRAA in patients over 70 years has not been determined. Clinical correlation is essential. Serum or plasma urea nitroge n measurement (mass/volume)Ordered By: Rm Chirinos on 09-20-2023 Urea nitrogen [Mass/Vol] 19 mg/dL 7-18 [facility] Squamous epithelial cells de tection in urine sediment by light microscopyOrdered By: Rm Chirinos on 09-20-2023 Epithelial cells.squamous LM Ql (Urine sed) 0-5 SEEN /hpf 5-10 [facility] Thin prep Papanicolaou smear with manual screeningOrdered By: Rm Chirinos on 09-20-2023 Thin prep Papanicolaou smear with manual screening 264 mg/dL 74-106 [facility] Comment on above: MANAGEMENT OF PATIEN T CARE PER NURSING PROTOCOL Thin prep Papanicolaou smear with manual screening 9 5-15 [facility] Urine blood detectionOrdered By: Rm Chirinos on 09-20-2023 RBC Ql (U) Negative Negative [facility] Urine clarityOrdered By: Rm Chirinos on 09-20-2023 Clarity (U) Sl. Cloudy Clear [facility] Urine color determinationOrd ered By: Rm Chirinos on 09-20-2023 Color (U) Yellow Yellow [facility] Urine glucose detectionOrder ed By: Rm Chirinos on 09-20-2023 Glucose Ql (U) 1000 mg/dl Normal [facility] Urine leukocyte esterase det ection by dipstickOrdered By: Rm Chirinos on 09-20-2023 Leukocyte esterase Test strip Ql (U) Negative Negative [facility] Urine pHOrdered By: Rm pagan on 09-20-2023 pH (U) 6.0 [pH] 5.0 - 8.0 [facility] Urine sediment bacteria coun t by microscopy (number/high power field)Ordered By: Rm Chirinos on 09-20-2023 Bacteria LM.HPF (Urine sed) [#/Area] 0 /[HPF] None Seen [facility] Urine specific gravity measu rementOrdered By: Rm Chirinos on 09-20-2023 Specific gravity (U) [Rel density] 1.010 1.002-1.030 [facility] Urine urobilinogen measureme ntOrdered By: Rm Chirinos on 09-20-2023 Urobilinogen Ql (U) Normal mg/dl Normal [facility] Venous blood bicarbonate penelope surementOrdered By: Rm Chirinos on 09-20-2023 HCO3 (BldCoV) [Moles/Vol] 21 mmol/L 22- [facility] Venous blood oxygen saturati on (pure mass fraction)Ordered By: Rm Chirinos on 09-20-2023 SaO2% (BldV) [Pure mass fraction] 91 % 50-70 [facility] Venous blood pH measurementO rdered By: Rm Chirinos on 09-20-2023 pH (BldV) 7.35 [pH] 7.32-7.42 [facility] Absolute lymphocyte countOrd ered By: Greg Philip on 09-06-2023 Lymphocytes Auto (Unsp spec) [#/Vol] 2.47 10*3/uL 0.83-4.51 [facility] Basophil percentageOrdered B y: Greg Philip on 09-06-2023 Basophil percentage 0-5 SEEN /hpf 0-5 [facility] Basophils/100 WBC (Bld) 0.4 % 0-1 [facility] Bilirubin [Mass/Vol] 0.50 mg/dL 0.20-1.00 [facility] Comment on above: For patients on eltr ombopag therapy, use of Dimension [place] TBIL is not recommended. Chloride [Moles/Vol] 111 mmol/L 98-107 [facility] Eosinophils/100 WBC (Bld) 0.7 % 0-5 [facility] Glucose [Mass/Vol] 101 mg/dL 74-106 [facility] Comment on above: Fasting Glucose resu lt from 100 to 125 mg/dL suggests IMPAIRED HOMEOSTASIS per A.D.A. criteria. Neutrophils (Bld) [#/Vol] 6.5 10*3/uL 2.0-7.7 [facility] Neutrophils/100 WBC (Bld) 67.1 % 47-70 [facility] Potassium [Moles/Vol] 3.9 mmol/L 3.5-5.1 [facility] Protein [Mass/Vol] 6.8 g/dL 6.4-8.2 [facility] Sodium [Moles/Vol] 142 mmol/L 136-145 [facility] WBC (Bld) [#/Vol] 9.6 10*3/uL 4.4-11.0 [facility] Beta hCG serum qualOrdered B y: Greg Philip on 09-06-2023 Beta HCG ( test) Ql Negative [facility] Bilirubin Test strip Ql (U)O rdered By: Greg Philip on 09-06-2023 Bilirubin Ql (U) Negative Negative [facility] Blood erythrocytes count (nu mber/volume)Ordered By: Greg Philip on 09-06-2023 RBC (Bld) [#/Vol] 4.34 10*6/uL 4.2-5.4 [facility] Blood hemoglobin measurement (mass/volume)Ordered By: Greg Philip on 09-06-2023 Hemoglobin (Bld) [Mass/Vol] 12.7 g/dL 12.0-15.0 [facility] Blood lymphocytes/100 leukoc ytesOrdered By: Greg Philip on 09-06-2023 Lymphocytes/100 WBC (Bld) 25.6 % 19-41 [facility] Blood monocytes/100 leukocyt esOrdered By: Greg Philip on 09-06-2023 Monocytes/100 WBC (Bld) 5.7 % 0-10 [facility] Blood platelet mean volumeOr dered By: Greg Philip on 09-06-2023 Platelet mean volume (Bld) [Entitic vol] 12.4 fL 6.2-12.0 [facility] Determination of erythrocyte mean corpuscular volume (MCV)Ordered By: Greg Philip on 09-06-2023 MCV (RBC) [Entitic vol] 91.0 fL 81-99 [facility] Hematocrit Auto (Bld) [Volum e fraction]Ordered By: Greg Philip on 09-06-2023 Hematocrit (Bld) [Volume fraction] 39.5 % 37-47 [facility] Ketones Test strip Ql (U)Ord ered By: Greg Philip on 09-06-2023 Ketones Ql (U) 5 mg/dl Negative [facility] Laboratory - Chemistry and C hemistry - challengeOrdered By: Greg Philip on 09-06-2023 ALP [Catalytic activity/Vol] 69 U/L 45-117 [facility] ALT [Catalytic activity/Vol] 47 U/L 13-56 [facility] CO2 [Moles/Vol] 27.0 mmol/L 21.0-32.0 [facility] Globulin (S) [Mass/Vol] 3.2 g/dL 2.2-4.2 [facility] Urea nitrogen/Creatinine [Mass ratio] 22.9 mg/mg 10-20 [facility] Laboratory - Hematology and Cell countsOrdered By: Greg Philip on 09-06-2023 Erythrocyte distribution width (RBC) [Entitic vol] 45.5 fL 35.1-43.9 [facility] Erythrocyte distribution width (RBC) [Ratio] 13.6 % 11.6-14.6 [facility] Immature granulocytes/100 WBC (Bld) 0.500 % 0.0-0.9 [facility] Comment on above: IG% - Immature Granu locytes (promyelocytes, myelocytes and metamyelocytes) > 1% indicates that a LEFT SHIFT is Present. MCH (RBC) [Entitic mass] 29.3 pg 27.0-32.0 [facility] Nucleated RBC/100 WBC (Bld) [Ratio] 0 % 0-5 [facility] MCHC Auto (RBC) [Mass/Vol]Or dered By: Greg Philip on 09-06-2023 MCHC (RBC) [Mass/Vol] 32.2 g/dL 32-36 [facility] Mucus LM Ql (Urine sed)Order ed By: Greg Philip on 09-06-2023 Mucus Ql (Urine sed) 1+ /hpf [facility] Nitrite Test strip Ql (U)Ord ered By: Greg Philip on 09-06-2023 Nitrite Ql (U) Negative Negative [facility] No Panel InformationOrdered By: Greg Philip on 09-06-2023 Estimated Creatinine Clearance Calc 131.44 ml/min [facility] Estimated GFR (MDRD) Amer 137 mL/min >60 [facility] Comment on above: GFR Calc Estimated GFR (MDRD) Non-Af Amer 113 mL/min >60 [facility] Comment on above: Non- GFR Calc Platelets bldOrdered By: Allyn Philip on 09-06-2023 Platelets (Bld) [#/Vol] 144 10*3/uL 150-450 [facility] Protein Test strip Ql (U)Ord ered By: Greg Philip on 09-06-2023 Protein Ql (U) 15 mg/dl Negative [facility] Serum or plasma albumin milli urement (mass/volume)Ordered By: Greg Philip on 09-06-2023 Albumin [Mass/Vol] 3.6 g/dL 3.2-5.0 [facility] Serum or plasma albumin/glob ulin mass ratioOrdered By: Greg Philip on 09-06-2023 Albumin/Globulin [Mass ratio] 1.1 {ratio} 0.9-2.4 [facility] Serum or plasma calcium milli urement (mass/volume)Ordered By: Greg Philip on 09-06-2023 Calcium [Mass/Vol] 8.5 mg/dL 8.5-10.1 [facility] Serum or plasma creatinine m easurement (mass/volume)Ordered By: Greg Philip on 09-06-2023 Creatinine [Mass/Vol] 0.66 mg/dL 0.55-1.02 [facility] Comment on above: The validity of the calculated GFR & GFRAA in patients over 70 years has not been determined. Clinical correlation is essential. Serum or plasma urea nitroge n measurement (mass/volume)Ordered By: Greg Philip on 09-06-2023 Urea nitrogen [Mass/Vol] 15 mg/dL 7-18 [facility] Squamous epithelial cells de tection in urine sediment by light microscopyOrdered By: Greg Philip on 09-06-2023 Epithelial cells.squamous LM Ql (Urine sed) 5-10 SEEN /hpf 5-10 [facility] Thin prep Papanicolaou smear with manual screeningOrdered By: Greg Philip on 09-06-2023 Thin prep Papanicolaou smear with manual screening 28 U/L 15-37 [facility] Thin prep Papanicolaou smear with manual screening 4 5-15 [facility] Urine blood detectionOrdered By: Greg Philip on 09-06-2023 RBC Ql (U) Negative Negative [facility] RBC Ql (U) 0 SEEN /hpf 0-5 [facility] Urine clarityOrdered By: Allyn Philip on 09-06-2023 Clarity (U) Clear Clear [facility] Urine color determinationOrd ered By: Greg Philip on 09-06-2023 Color (U) Yellow Yellow [facility] Urine glucose detectionOrder ed By: Greg Philip on 09-06-2023 Glucose Ql (U) 50 mg/dl Normal [facility] Urine leukocyte esterase det ection by dipstickOrdered By: Greg Philip on 09-06-2023 Leukocyte esterase Test strip Ql (U) Negative Negative [facility] Urine pHOrdered By: Greg sun on 09-06-2023 pH (U) 6.5 [pH] 5.0 - 8.0 [facility] Urine sediment bacteria coun t by microscopy (number/high power field)Ordered By: Greg Philip on 09-06-2023 Bacteria LM.HPF (Urine sed) [#/Area] 0 /[HPF] None Seen [facility] Urine specific gravity measu rementOrdered By: Greg Philip on 09-06-2023 Specific gravity (U) [Rel density] 1.020 1.002-1.030 [facility] Urobilinogen Auto test strip Ql (U)Ordered By: Greg Philip on 09-06-2023 Urobilinogen Ql (U) 1 mg/dl Normal [facility] Absolute lymphocyte countOrd ered By: Mrac Carl on 08-22-2023 Lymphocytes Auto (Unsp spec) [#/Vol] 2.29 10*3/uL 0.83-4.51 [facility] Basophil percentageOrdered B y: Marc Carl on 08-22-2023 Basophil percentage 0 SEEN /hpf 0-5 [facility] Basophils/100 WBC (Bld) 0.6 % 0-1 [facility] Bilirubin [Mass/Vol] 0.50 mg/dL 0.20-1.00 [facility] Comment on above: For patients on eltr ombopag therapy, use of Dimension [place] TBIL is not recommended. Chloride [Moles/Vol] 106 mmol/L 98-107 [facility] Eosinophils/100 WBC (Bld) 0.9 % 0-5 [facility] Glucose [Mass/Vol] 397 mg/dL 74-106 [facility] Comment on above: Glucose result great er than or equal to 200 mg/dLsuggests DIABETES MELLITUS per A.D.A. criteria. Neutrophils (Bld) [#/Vol] 4.8 10*3/uL 2.0-7.7 [facility] Neutrophils/100 WBC (Bld) 60.5 % 47-70 [facility] Potassium [Moles/Vol] 4.1 mmol/L 3.5-5.1 [facility] Protein [Mass/Vol] 6.6 g/dL 6.4-8.2 [facility] Sodium [Moles/Vol] 138 mmol/L 136-145 [facility] WBC (Bld) [#/Vol] 8.0 10*3/uL 4.4-11.0 [facility] Bilirubin Test strip Ql (U)O rdered By: Marc Carl on 08-22-2023 Bilirubin Ql (U) Negative Negative [facility] Blood erythrocytes count (nu mber/volume)Ordered By: Marc Carl on 08-22-2023 RBC (Bld) [#/Vol] 4.04 10*6/uL 4.2-5.4 [facility] Blood hemoglobin measurement (mass/volume)Ordered By: Marc Carl on 08-22-2023 Hemoglobin (Bld) [Mass/Vol] 11.6 g/dL 12.0-15.0 [facility] Blood lymphocytes/100 leukoc ytesOrdered By: Marc Carl on 08-22-2023 Lymphocytes/100 WBC (Bld) 28.7 % 19-41 [facility] Blood monocytes/100 leukocyt esOrdered By: Marc Carl on 08-22-2023 Monocytes/100 WBC (Bld) 7.9 % 0-10 [facility] Blood platelet mean volumeOr dered By: Marc Carl on 08-22-2023 Platelet mean volume (Bld) [Entitic vol] 12.0 fL 6.2-12.0 [facility] Determination of erythrocyte mean corpuscular volume (MCV)Ordered By: Marc Carl on 08-22-2023 MCV (RBC) [Entitic vol] 92.3 fL 81-99 [facility] Glucose Glucometer (BldC) [M ass/Vol]Ordered By: Marc Carl on 08-22-2023 Glucose [Mass/Vol] 207 mg/dL 74-106 [facility] Comment on above: MANAGEMENT OF PATIEN T CARE PER NURSING PROTOCOL Hematocrit Auto (Bld) [Volum e fraction]Ordered By: Marc Carl on 08-22-2023 Hematocrit (Bld) [Volume fraction] 37.3 % 37-47 [facility] Ketones Test strip Ql (U)Ord ered By: Marc Carl on 08-22-2023 Ketones Ql (U) 5 mg/dl Negative [facility] Laboratory - Chemistry and C hemistry - challengeOrdered By: Marc Carl on 08-22-2023 ALP [Catalytic activity/Vol] 72 U/L 45-117 [facility] ALT [Catalytic activity/Vol] 87 U/L 13-56 [facility] CO2 [Moles/Vol] 27.0 mmol/L 21.0-32.0 [facility] Globulin (S) [Mass/Vol] 3.3 g/dL 2.2-4.2 [facility] Urea nitrogen/Creatinine [Mass ratio] 13.4 mg/mg 10-20 [facility] Laboratory - Hematology and Cell countsOrdered By: Marc Carl on 08-22-2023 Erythrocyte distribution width (RBC) [Entitic vol] 45.2 fL 35.1-43.9 [facility] Erythrocyte distribution width (RBC) [Ratio] 13.4 % 11.6-14.6 [facility] Immature granulocytes/100 WBC (Bld) 1.400 % 0.0-0.9 [facility] Comment on above: IG% - Immature Granu locytes (promyelocytes, myelocytes and metamyelocytes) > 1% indicates that a LEFT SHIFT is Present. MCH (RBC) [Entitic mass] 28.7 pg 27.0-32.0 [facility] Nucleated RBC/100 WBC (Bld) [Ratio] 0 % 0-5 [facility] MCHC Auto (RBC) [Mass/Vol]Or dered By: Marc Carl on 08-22-2023 MCHC (RBC) [Mass/Vol] 31.1 g/dL 32-36 [facility] Mucus LM Ql (Urine sed)Order ed By: Marc Carl on 08-22-2023 Mucus Ql (Urine sed) 0 SEEN /hpf [facility] Nitrite Test strip Ql (U)Ord ered By: Marc Carl on 08-22-2023 Nitrite Ql (U) Negative Negative [facility] No Panel InformationOrdered By: Marc Carl on 08-22-2023 Estimated Creatinine Clearance Calc 96.39 ml/min [facility] Estimated GFR (MDRD) Amer 95 mL/min >60 [facility] Comment on above: GFR Calc Estimated GFR (MDRD) Non-Af Amer 79 mL/min >60 [facility] Comment on above: Non- GFR Calc Platelets bldOrdered By: Filipe Carl on 08-22-2023 Platelets (Bld) [#/Vol] 206 10*3/uL 150-450 [facility] Protein Test strip Ql (U)Ord ered By: Marc Carl on 08-22-2023 Protein Ql (U) Negative Negative [facility] Serum or plasma albumin milli urement (mass/volume)Ordered By: Marc Carl on 08-22-2023 Albumin [Mass/Vol] 3.3 g/dL 3.2-5.0 [facility] Serum or plasma albumin/glob ulin mass ratioOrdered By: Marc Carl on 08-22-2023 Albumin/Globulin [Mass ratio] 1.0 {ratio} 0.9-2.4 [facility] Serum or plasma calcium milli urement (mass/volume)Ordered By: Marc Carl on 08-22-2023 Calcium [Mass/Vol] 8.4 mg/dL 8.5-10.1 [facility] Serum or plasma creatinine m easurement (mass/volume)Ordered By: Marc Carl on 08-22-2023 Creatinine [Mass/Vol] 0.90 mg/dL 0.55-1.02 [facility] Comment on above: The validity of the calculated GFR & GFRAA in patients over 70 years has not been determined. Clinical correlation is essential. Serum or plasma urea nitroge n measurement (mass/volume)Ordered By: Marc Carl on 08-22-2023 Urea nitrogen [Mass/Vol] 12 mg/dL 7-18 [facility] Squamous epithelial cells de tection in urine sediment by light microscopyOrdered By: Marc Carl on 08-22-2023 Epithelial cells.squamous LM Ql (Urine sed) 0-5 SEEN /hpf 5-10 [facility] Thin prep Papanicolaou smear with manual screeningOrdered By: Marc Carl on 08-22-2023 Thin prep Papanicolaou smear with manual screening 36 U/L 15-37 [facility] Thin prep Papanicolaou smear with manual screening 5 5-15 [facility] Urine blood detectionOrdered By: Marc Carl on 08-22-2023 RBC Ql (U) Negative Negative [facility] RBC Ql (U) 0 SEEN /hpf 0-5 [facility] Urine clarityOrdered By: Filipe Carl on 08-22-2023 Clarity (U) Clear Clear [facility] Urine color determinationOrd ered By: Marc Carl on 08-22-2023 Color (U) Yellow Yellow [facility] Urine glucose detectionOrder ed By: Marc Carl on 08-22-2023 Glucose Ql (U) 1000 mg/dl Normal [facility] Urine leukocyte esterase det ection by dipstickOrdered By: Marc Carl on 08-22-2023 Leukocyte esterase Test strip Ql (U) Negative Negative [facility] Urine pHOrdered By: Marc griffiths on 08-22-2023 pH (U) 8.0 [pH] 5.0 - 8.0 [facility] Urine sediment bacteria coun t by microscopy (number/high power field)Ordered By: Marc Carl on 08-22-2023 Bacteria LM.HPF (Urine sed) [#/Area] 0 /[HPF] None Seen [facility] Urine specific gravity measu rementOrdered By: Marc Carl on 08-22-2023 Specific gravity (U) [Rel density] 1.010 1.002-1.030 [facility] Urobilinogen Auto test strip Ql (U)Ordered By: Marc Carl on 08-22-2023 Urobilinogen Ql (U) Normal mg/dl Normal [facility] Basophil percentageOrdered B y: Dangelo Encarnacion on 08-10-2023 Chloride [Moles/Vol] 109 mmol/L 98-107 [facility] Glucose [Mass/Vol] 195 mg/dL 74-106 [facility] Comment on above: Fasting Glucose resu lt greater than or equal to 126 mg/dL suggests DIABETES MELLITUS per A.D.A. criteria. Potassium [Moles/Vol] 3.7 mmol/L 3.5-5.1 [facility] Sodium [Moles/Vol] 139 mmol/L 136-145 [facility] WBC (Bld) [#/Vol] 8.5 10*3/uL 4.4-11.0 [facility] Blood erythrocytes count (nu mber/volume)Ordered By: Dangelo Encarnacion on 08-10-2023 RBC (Bld) [#/Vol] 4.50 10*6/uL 4.2-5.4 [facility] Blood hemoglobin measurement (mass/volume)Ordered By: Dangelo Encarnacion on 08-10-2023 Hemoglobin (Bld) [Mass/Vol] 13.0 g/dL 12.0-15.0 [facility] Blood platelet mean volumeOr dered By: Dangelo Encarnacion on 08-10-2023 Platelet mean volume (Bld) [Entitic vol] 11.8 fL 6.2-12.0 [facility] Determination of erythrocyte mean corpuscular volume (MCV)Ordered By: Dangelo Encarnacion on 08-10-2023 MCV (RBC) [Entitic vol] 88.2 fL 81-99 [facility] Glucose Glucometer (BldC) [M ass/Vol]Ordered By: Dangelo Encarnacion on 08-10-2023 Glucose [Mass/Vol] 208 mg/dL 74-106 [facility] Comment on above: MANAGEMENT OF PATIEN T CARE PER NURSING PROTOCOL Hematocrit Auto (Bld) [Volum e fraction]Ordered By: Dangelo Encarnacion on 08-10-2023 Hematocrit (Bld) [Volume fraction] 39.7 % 37-47 [facility] - Chemistry and C hemistry - challengeOrdered By: Dangelo Encarnacion on 08-10-2023 CO2 [Moles/Vol] 20.0 mmol/L 21.0-32.0 [facility] Urea nitrogen/Creatinine [Mass ratio] 15.4 mg/mg 10-20 [facility] - Hematology and Cell countsOrdered By: Dangelo Encarnacion on 08-10-2023 Erythrocyte distribution width (RBC) [Entitic vol] 42.0 fL 35.1-43.9 [facility] Erythrocyte distribution width (RBC) [Ratio] 12.9 % 11.6-14.6 [facility] MCH (RBC) [Entitic mass] 28.9 pg 27.0-32.0 [facility] MCHC Auto (RBC) [Mass/Vol]Or dered By: Dangelo Encarnacion on 08-10-2023 MCHC (RBC) [Mass/Vol] 32.7 g/dL 32-36 [facility] No Panel InformationOrdered By: Dangelo Encarnacion on 08-10-2023 Estimated Creatinine Clearance Calc 149.57 ml/min [facility] Estimated GFR (MDRD) Amer 157 mL/min >60 [facility] Comment on above: GFR Calc Estimated GFR (MDRD) Non-Af Amer 129 mL/min >60 [facility] Comment on above: Non- GFR Calc Platelets bldOrdered By: Lauren Encarnacion on 08-10-2023 Platelets (Bld) [#/Vol] 109 10*3/uL 150-450 [facility] Serum or plasma calcium milli urement (mass/volume)Ordered By: Dangelo Encarnacion on 08-10-2023 Calcium [Mass/Vol] 8.0 mg/dL 8.5-10.1 [facility] Serum or plasma creatinine m easurement (mass/volume)Ordered By: Dangelo Encarnacion on 08-10-2023 Creatinine [Mass/Vol] 0.58 mg/dL 0.55-1.02 [facility] Comment on above: The validity of the calculated GFR & GFRAA in patients over 70 years has not been determined. Clinical correlation is essential. Serum or plasma urea nitroge n measurement (mass/volume)Ordered By: Dangelo Encarnacion on 08-10-2023 Urea nitrogen [Mass/Vol] 9 mg/dL 7-18 [facility] Thin prep Papanicolaou smear with manual screeningOrdered By: Dangelo Encarnacion on 08-10-2023 Thin prep Papanicolaou smear with manual screening 10 5-15 [facility] Basophil percentageOrdered B y: Lul Nkechibing on 08-07-2023 Lactate [Moles/Vol] 2.2 mmol/L 0.4-2.0 [facility] Comment on above: Critical Result(s) C alled at: 06:54:28 08/07/2023 by: Reid Rogers. Colin Hopkins RN (ICU). Results read back by same. HCO3 (BldA) [Moles/Vol]Order ed By: Vamsi Lewis on 08-07-2023 HCO3 (Bld) [Moles/Vol] 12 mmol/L 22- [facility] - Chemistry and C hemistry - challengeOrdered By: Vamsi Lewis on 08-07-2023 CO2 [Moles/Vol] 13 mmol/L 23-33 [facility] Magnesium [Mass/Vol] 1.8 mg/dL 1.6-2.6 [facility] Comment on above: Slight Hemolysis, Re sult may be falsely increased. No Panel InformationOrdered By: Vamsi Lewis on 08-07-2023 Bed Mix Venous Bld PCO2 at Pat Temp 28.0 mmHg 41-51 [facility] Blood Gas Oxygen Percent 21.0 [facility] Blood Gas Sample Site Not entered [facility] Blood Gas Specimen Type ISABELLE [facility] Oxygen Delivery Device Not entered [facility] Venous Blood Base Excess -16 mmol/L -1.0-3.5 [facility] PO2 venousOrdered By: Vamsi Lewis on 08-07-2023 Oxygen (BldV) [Partial pressure] 52 mm[Hg] 25-40 [facility] Respiratory pathogens detect ion panel by molecular detection methodOrdered By: Vamsi Lewis on 08-07-2023 Respiratory pathogens DNA and RNA panel DANIEL+probe (Resp) [facility] Respiratory pathogens DNA and RNA panel DANIEL+probe (Resp) [facility] Serum or plasma acetone milli urement (mass/volume)Ordered By: Vamsi Lewis on 08-07-2023 Acetone [Mass/Vol] MODERATE NEG [facility] Vital signsOrdered By: Vamsi Lewis on 08-07-2023 Oxygen saturation in Blood 81 % 50-70 [facility] Whole blood hemoglobin A1c/t otal hemoglobin ratio (mass fraction)Ordered By: Vamsi Lewis on 08-07-2023 HbA1c (Bld) [Mass fraction] 7.0 % 3.8-5.6 [facility] Comment on above: Normal < 5.7 % Predi abetic 5.7 - 6.4 % Diabetic >or= 6.5 % Please note range changes. pH measurementOrdered By: Miller Lewis on 08-07-2023 pH (Unsp spec) 7.24 [pH] 7.32-7.42 [facility] Absolute lymphocyte countOrd ered By: Lul Singh on 08-06-2023 Lymphocytes Auto (Unsp spec) [#/Vol] 0.42 10*3/uL 0.83-4.51 [facility] Absolute lymphocyte countOrd ered By: Juan Marquez on 08-06-2023 Lymphocytes Auto (Unsp spec) [#/Vol] 1.08 10*3/uL 0.83-4.51 [facility] Basophil percentageOrdered B y: Lul Singh on 08-06-2023 Basophils/100 WBC (Bld) 0.5 % 0-1 [facility] Chloride [Moles/Vol] 101 mmol/L 98-107 [facility] Eosinophils/100 WBC (Bld) 0.0 % 0-5 [facility] Glucose [Mass/Vol] 548 mg/dL 74-106 [facility] Comment on above: Critical Result(s) C alled at: 23:51:02 08/06/2023 by: Jay Hill. colin Castro (RN) (ED) Results read back by same.Glucose result greater than or equal to 200 mg/dLsuggests DIABETES MELLITUS per A.D.A. criteria. Lactate [Moles/Vol] 4.4 mmol/L 0.4-2.0 [facility] Comment on above: Critical Result(s) C alled at: 23:51:02 08/06/2023 by: Jay Hill. to Matthew AcuñaRN) (ED) Results read back by same. Neutrophils (Bld) [#/Vol] 18.8 10*3/uL 2.0-7.7 [facility] Neutrophils/100 WBC (Bld) 92.7 % 47-70 [facility] Potassium [Moles/Vol] 4.8 mmol/L 3.5-5.1 [facility] Sodium [Moles/Vol] 132 mmol/L 136-145 [facility] WBC (Bld) [#/Vol] 20.3 10*3/uL 4.4-11.0 [facility] Basophil percentage 0 SEEN /hpf 0-5 [facility] Basophil percentageOrdered B y: Juan Maqruez on 08-06-2023 Basophils/100 WBC (Bld) 0.2 % 0-1 [facility] Bilirubin [Mass/Vol] 0.70 mg/dL 0.20-1.00 [facility] Comment on above: For patients on eltr ombopag therapy, use of Dimension [place] TBIL is not recommended. Chloride [Moles/Vol] 108 mmol/L 98-107 [facility] Eosinophils/100 WBC (Bld) 0.1 % 0-5 [facility] Glucose [Mass/Vol] 69 mg/dL 74-106 [facility] Neutrophils (Bld) [#/Vol] 19.2 10*3/uL 2.0-7.7 [facility] Neutrophils/100 WBC (Bld) 87.7 % 47-70 [facility] Potassium [Moles/Vol] 3.3 mmol/L 3.5-5.1 [facility] Protein [Mass/Vol] 7.5 g/dL 6.4-8.2 [facility] Sodium [Moles/Vol] 139 mmol/L 136-145 [facility] WBC (Bld) [#/Vol] 21.9 10*3/uL 4.4-11.0 [facility] Beta hCG serum qualOrdered B y: Juan Marquez on 08-06-2023 Beta HCG ( test) Ql Negative [facility] Bilirubin Test strip Ql (U)O rdered By: Lul Singh on 08-06-2023 Bilirubin Ql (U) Negative Negative [facility] Blood erythrocytes count (nu mber/volume)Ordered By: Lul Singh on 08-06-2023 RBC (Bld) [#/Vol] 4.35 10*6/uL 4.2-5.4 [facility] Blood erythrocytes count (nu mber/volume)Ordered By: Juan Marquez on 08-06-2023 RBC (Bld) [#/Vol] 5.03 10*6/uL 4.2-5.4 [facility] Blood hemoglobin measurement (mass/volume)Ordered By: Lul Singh on 08-06-2023 Hemoglobin (Bld) [Mass/Vol] 12.6 g/dL 12.0-15.0 [facility] Blood hemoglobin measurement (mass/volume)Ordered By: Juan Marquez on 08-06-2023 Hemoglobin (Bld) [Mass/Vol] 14.7 g/dL 12.0-15.0 [facility] Blood lymphocytes/100 leukoc ytesOrdered By: Lul Singh on 08-06-2023 Lymphocytes/100 WBC (Bld) 2.1 % [facility] Blood lymphocytes/100 leukoc ytesOrdered By: Juan Marquez on 08-06-2023 Lymphocytes/100 WBC (Bld) 4.9 % - [facility] Blood manual differential co mment interpretation (narrative result)Ordered By: Lul Singh on 08-06-2023 Manual differential comment Faraz (Bld) [Interp] SCANNED [facility] Comment on above: LYMPHOPENIA PRESENT Blood monocytes/100 leukocyt esOrdered By: Lul Singh on 08-06-2023 Monocytes/100 WBC (Bld) 2.0 % 0-10 [facility] Blood monocytes/100 leukocyt esOrdered By: Juan Marquez on 08-06-2023 Monocytes/100 WBC (Bld) 5.6 % 0-10 [facility] Blood platelet mean volumeOr dered By: Lul Singh on 08-06-2023 Platelet mean volume (Bld) [Entitic vol] 13.8 fL 6.2-12.0 [facility] Blood platelet mean volumeOr dered By: Juan Marquez on 08-06-2023 Platelet mean volume (Bld) [Entitic vol] 12.1 fL 6.2-12.0 [facility] Determination of erythrocyte mean corpuscular volume (MCV)Ordered By: Lul Singh on 08-06-2023 MCV (RBC) [Entitic vol] 93.1 fL 81-99 [facility] Determination of erythrocyte mean corpuscular volume (MCV)Ordered By: Juan Marquez on 08-06-2023 MCV (RBC) [Entitic vol] 88.9 fL 81-99 [facility] Glucose Glucometer (dC) [M ass/Vol]Ordered By: Juan Marquez on 08-06-2023 Glucose [Mass/Vol] 397 mg/dL 74-106 [facility] Comment on above: MANAGEMENT OF PATIEN T CARE PER NURSING PROTOCOL HCO3 (BldA) [Moles/Vol]Order ed By: Lul Singh on 08-06-2023 HCO3 (Bld) [Moles/Vol] 12 mmol/L 22-26 [facility] Hematocrit Auto (Bld) [Volum e fraction]Ordered By: Lul Singh on 08-06-2023 Hematocrit (Bld) [Volume fraction] 40.5 % 37-47 [facility] Hematocrit Auto (Bld) [Volum e fraction]Ordered By: Juan Marquez on 08-06-2023 Hematocrit (Bld) [Volume fraction] 44.7 % 37-47 [facility] Ketones Test strip Ql (U)Ord ered By: Lul Singh on 08-06-2023 Ketones Ql (U) 150 mg/dl Negative [facility] Comment on above: CRITICAL VALUE *HCRI TICAL VALUE VERIFIED. CALLED TO [id number]/11/23 0049 Jay Hill.RESULTS READ BACK BY SAME. Laboratory - Chemistry and C hemistry - challengeOrdered By: Lul Singh on 08-06-2023 CO2 [Moles/Vol] 13 mmol/L 23-33 [facility] CO2 [Moles/Vol] 14.0 mmol/L 21.0-32.0 [facility] Magnesium [Mass/Vol] 2.0 mg/dL 1.6-2.6 [facility] Urea nitrogen/Creatinine [Mass ratio] 16.1 mg/mg 10- [facility] Laboratory - Chemistry and C hemistry - challengeOrdered By: Juan Marquez on 08-06-2023 ALP [Catalytic activity/Vol] 94 U/L 45-117 [facility] ALT [Catalytic activity/Vol] 32 U/L 13-56 [facility] CO2 [Moles/Vol] 26.0 mmol/L 21.0-32.0 [facility] Globulin (S) [Mass/Vol] 3.6 g/dL 2.2-4.2 [facility] Lipase [Catalytic activity/Vol] 16 U/L 13-75 [facility] Comment on above: Please note:LIPASE r evised reference range effective 22. New Lipase methodology. Expected to produce lower values than the previous assay method. NEW Reference Range: 13 - 75 U/L Urea nitrogen/Creatinine [Mass ratio] 20.0 mg/mg - [facility] Laboratory - Hematology and Cell countsOrdered By: Lul Singh on 08-06-2023 Erythrocyte distribution width (RBC) [Entitic vol] 45.1 fL 35.1-43.9 [facility] Erythrocyte distribution width (RBC) [Ratio] 13.2 % 11.6-14.6 [facility] Immature granulocytes/100 WBC (Bld) 2.700 % 0.0-0.9 [facility] Comment on above: IG% - Immature Granu locytes (promyelocytes, myelocytes and metamyelocytes) > 1% indicates that a LEFT SHIFT is Present. MCH (RBC) [Entitic mass] 29.0 pg 27.0-32.0 [facility] Nucleated RBC/100 WBC (Bld) [Ratio] 0 % 0-5 [facility] Laboratory - Hematology and Cell countsOrdered By: Juan Marquez on 08-06-2023 Erythrocyte distribution width (RBC) [Entitic vol] 42.0 fL 35.1-43.9 [facility] Erythrocyte distribution width (RBC) [Ratio] 12.9 % 11.6-14.6 [facility] Immature granulocytes/100 WBC (Bld) 1.500 % 0.0-0.9 [facility] Comment on above: IG% - Immature Granu locytes (promyelocytes, myelocytes and metamyelocytes) > 1% indicates that a LEFT SHIFT is Present. MCH (RBC) [Entitic mass] 29.2 pg 27.0-32.0 [facility] Nucleated RBC/100 WBC (Bld) [Ratio] 0 % 0-5 [facility] MCHC Auto (RBC) [Mass/Vol]Or dered By: Lul Singh on 08-06-2023 MCHC (RBC) [Mass/Vol] 31.1 g/dL [facility] Comment on above: Delta: 32.9 on 08/06 [facility] Auto (RBC) [Mass/Vol]Or dered By: Juan Marquez on 08-06-2023 MCHC (RBC) [Mass/Vol] 32.9 g/dL [facility] Mucus LM Ql (Urine sed)Order ed By: Lul Singh on 08-06-2023 Mucus Ql (Urine sed) 0 SEEN /hpf [facility] Nitrite Test strip Ql (U)Ord ered By: Lul Singh on 08-06-2023 Nitrite Ql (U) Negative Negative [facility] No Panel InformationOrdered By: Lul Singh on 08-06-2023 Bed Mix Venous Bld PCO2 at Pat Temp 22.9 mmHg 41-51 [facility] Blood Gas Sample Site Not entered [facility] Blood Gas Specimen Type ISABELLE [facility] Oxygen Delivery Device Room Air [facility] Venous Blood Base Excess -14 mmol/L -1.0-3.5 [facility] Estimated Creatinine Clearance Calc 73.52 ml/min [facility] Estimated GFR (MDRD) Amer 70 mL/min >60 [facility] Comment on above: GFR Calc Estimated GFR (MDRD) Non-Af Amer 58 mL/min >60 [facility] Comment on above: Non- GFR Calc No Panel InformationOrdered By: Juan Marquez on 12-10-2023 Estimated Creatinine Clearance Calc 108.44 ml/min [facility] Estimated GFR (MDRD) Amer 109 mL/min >60 [facility] Comment on above: GFR Calc Estimated GFR (MDRD) Non-Af Amer 90 mL/min >60 [facility] Comment on above: Non- GFR Calc PO2 venousOrdered By: Lul Singh on 08-06-2023 Oxygen (BldV) [Partial pressure] 58 mm[Hg] 25-40 [facility] Platelets bldOrdered By: Lane Singh on 08-06-2023 Platelets (Bld) [#/Vol] 140 10*3/uL 150-450 [facility] Platelets bldOrdered By: Lauren Marquez on 08-06-2023 Platelets (Bld) [#/Vol] 199 10*3/uL 150-450 [facility] Protein Test strip Ql (U)Ord ered By: Lul Singh on 08-06-2023 Protein Ql (U) Negative Negative [facility] Serum or plasma acetone milli urement (mass/volume)Ordered By: Lul Singh on 08-06-2023 Acetone [Mass/Vol] SMALL NEG [facility] Serum or plasma albumin milli urement (mass/volume)Ordered By: Juan Marquez on 08-06-2023 Albumin [Mass/Vol] 3.9 g/dL 3.2-5.0 [facility] Serum or plasma albumin/glob ulin mass ratioOrdered By: Juan Marquez on 08-06-2023 Albumin/Globulin [Mass ratio] 1.1 {ratio} 0.9-2.4 [facility] Serum or plasma calcium milli urement (mass/volume)Ordered By: Lul Singh on 08-06-2023 Calcium [Mass/Vol] 9.1 mg/dL 8.5-10.1 [facility] Serum or plasma calcium milli urement (mass/volume)Ordered By: Juan Marquez on 08-06-2023 Calcium [Mass/Vol] 9.6 mg/dL 8.5-10.1 [facility] Serum or plasma creatinine m easurement (mass/volume)Ordered By: Lul Singh on 08-06-2023 Creatinine [Mass/Vol] 1.18 mg/dL 0.55-1.02 [facility] Comment on above: The validity of the calculated GFR & GFRAA in patients over 70 years has not been determined. Clinical correlation is essential. Serum or plasma creatinine m easurement (mass/volume)Ordered By: Juan Marquez on 08-06-2023 Creatinine [Mass/Vol] 0.80 mg/dL 0.55-1.02 [facility] Comment on above: The validity of the calculated GFR & GFRAA in patients over 70 years has not been determined. Clinical correlation is essential. Serum or plasma urea nitroge n measurement (mass/volume)Ordered By: Lul Singh on 08-06-2023 Urea nitrogen [Mass/Vol] 19 mg/dL 03-14 [facility] Serum or plasma urea nitroge n measurement (mass/volume)Ordered By: Juan Marquez on 08-06-2023 Urea nitrogen [Mass/Vol] 16 mg/dL 03-14 [facility] Squamous epithelial cells de tection in urine sediment by light microscopyOrdered By: Lul Singh on 08-06-2023 Epithelial cells.squamous LM Ql (Urine sed) 0-5 SEEN /hpf -10 [facility] Thin prep Papanicolaou smear with manual screeningOrdered By: Lul Singh on 08-06-2023 Thin prep Papanicolaou smear with manual screening 17 5-15 [facility] Thin prep Papanicolaou smear with manual screeningOrdered By: Juan Marquez on 08-06-2023 Thin prep Papanicolaou smear with manual screening 15 U/L 15-37 [facility] Thin prep Papanicolaou smear with manual screening 5 5-15 [facility] Urine blood detectionOrdered By: Lul Singh on 08-06-2023 RBC Ql (U) 10 /ul Negative [facility] RBC Ql (U) 0 SEEN /hpf 0-5 [facility] Urine clarityOrdered By: Lane Singh on 08-06-2023 Clarity (U) Clear Clear [facility] Urine color determinationOrd ered By: Lul Singh on 08-06-2023 Color (U) Yellow Yellow [facility] Urine glucose detectionOrder ed By: Lul Singh on 08-06-2023 Glucose Ql (U) 1000 mg/dl Normal [facility] Urine leukocyte esterase det ection by dipstickOrdered By: Lul Singh on 08-06-2023 Leukocyte esterase Test strip Ql (U) Negative Negative [facility] Urine pHOrdered By: Lul fontaine on 08-06-2023 pH (U) 5.0 [pH] 5.0 - 8.0 [facility] Urine sediment bacteria coun t by microscopy (number/high power field)Ordered By: Lul Singh on 08-06-2023 Bacteria LM.HPF (Urine sed) [#/Area] 0 /[HPF] None Seen [facility] Urine specific gravity measu rementOrdered By: Lul Singh on 08-06-2023 Specific gravity (U) [Rel density] 1.015 1.002-1.030 [facility] Urobilinogen Auto test strip Ql (U)Ordered By: Lul Singh on 08-06-2023 Urobilinogen Ql (U) Normal mg/dl Normal [facility] Vital signsOrdered By: Partha Singh on 08-06-2023 Oxygen saturation in Blood 89 % 50-70 [facility] pH measurementOrdered By: Yarelis Singh on 08-06-2023 pH (Unsp spec) 7.34 [pH] 7.32-7.42 [facility] CBC panel Auto (Bld)on 07-12 Erythrocyte distribution width (RBC) [Ratio] 13.3 % Normal 11.5-15.0 [facility] Comment on above: Order Comment: Speci men Type: BLOOD SPECIMEN Ordering Facility: [facility] Address: [address] [id number] Performed By: #### 3 1201-7, 5195-3, 71780-0, SYPH #### [facility] CLIA [id number] [address] [place] [address] [place] Hematocrit (Bld) [Volume fraction] 44.2 % Normal 36.0-46.0 [facility] Comment on above: Order Comment: Speci men Type: BLOOD SPECIMEN Ordering Facility: [facility] Address: [address] [phone] Performed By: #### 3 1201-7, 5195-3, 15241-0, SYPH #### [facility] CLIA [id number] [address] [place], [place] [id number] [place] Hemoglobin (Bld) [Mass/Vol] 14.8 g/dL Normal 11.5-15.5 [facility] Comment on above: Order Comment: Speci men Type: BLOOD SPECIMEN Ordering Facility: [facility] Address: [address] [place] [address] Performed By: #### 3 1201-7, 5194-3, 88248-3, SYPH #### [facility] CLIA [id number] [address] [place] [address] [place] MCH (RBC) [Entitic mass] 29.4 pg Normal 26.0-34.0 [facility] Comment on above: Order Comment: Speci men Type: BLOOD SPECIMEN Ordering Facility: [facility] Address: [address] [place] [address] Performed By: #### 3 120-7, 3, , SYPH #### [facility] CLIA [id number] [address] [place] [address] [place] MCHC (RBC) [Mass/Vol] 33.5 g/dL Normal 30.5-36.0 [facility] Comment on above: Order Comment: Speci men Type: BLOOD SPECIMEN Ordering Facility: [facility] Address: [address] [place] [address] Performed By: #### 3 1201-7, 5194-3, , SYPH #### [facility] CLIA [id number] [address] [place] [address] [place] MCV (RBC) [Entitic vol] 87.7 fL Normal 80.0-100.0 [facility] Comment on above: Order Comment: Speci men Type: BLOOD SPECIMEN Ordering Facility: [facility] Address: [address] [place] [address] Performed By: #### 3 1201-7, 5194-3, 85058-0, SYPH #### [facility] CLIA [id number] [address] [place] [address] [place] Nucleated RBC (Bld) [#/Vol] 10*3/uL Normal <0.01 [facility] Comment on above: Order Comment: Speci men Type: BLOOD SPECIMEN Ordering Facility: [facility] Address: [address] [place] [address] Performed By: #### 3 1201-7, 5195-3, 52634-7, SYPH #### [facility] CLIA [id number] [address] [place] [address] [place] Platelet mean volume (Bld) [Entitic vol] 13.3 fL High 9.0-12.7 [facility] Comment on above: Order Comment: Speci men Type: BLOOD SPECIMEN Ordering Facility: [facility] Address: [address] [place] [address] Performed By: #### 3 1201-7, 5195-3, 44137-6, SYPH #### [facility] CLIA [id number] [address] [place] [address] [place] Platelets (Bld) [#/Vol] 111 10*3/uL Low 150-400 [facility] Comment on above: Order Comment: Speci men Type: BLOOD SPECIMEN Ordering Facility: [facility] Address: [address] [place] [address] Result Comment: No c lot detected. Performed By: #### 3 1201-7, 5195-3, 77146-5, SYPH #### [facility] CLIA [id number] [address] [place] [address] [place] RBC (Bld) [#/Vol] 5.04 10*6/uL Normal 3.90-5.20 [facility] Comment on above: Order Comment: Speci men Type: BLOOD SPECIMEN Ordering Facility: [facility] Address: [address] [place] [address] Performed By: #### 3 1201-7, 5195-3, 71662-5, SYPH #### [facility] CLIA [id number] [address] [place] [address] [place] WBC (Bld) [#/Vol] 11.34 10*3/uL High 3.70-11.00 [facility] Comment on above: Order Comment: Speci men Type: BLOOD SPECIMEN Ordering Facility: [facility] Address: [address] [place], [place] [address] [phone] Performed By: #### 3 1201-7, 5195-3, 72979-1, [facility] #### [facility] CLIA [id number] [address] [id number] [place] CTA ABD/PEL W IVCONon 2022 CTA ABD/PEL W IVCON * * *Final Report* * * DATE OF EXAM: Jul 12 2023 10:08AM [facility] 0311 - CTA ABD/PEL W IVCON / [...] aorta without acute aortic pathology. Dictated by Engineering Technical Writer: Dutch Aguilar DO I, Valdo Islas MD, have supervised the procedure and/or image review, and agree with the above interpretation and report. Drawbridge Tender: CONCHITA Transcribe Date/Time: Jul 12 2023 10:10A Dictated by : DUTCH AGUILAR DO This examination was interpreted and the report reviewed and electronically signed by: VALDO ISLAS MD on Jul 12 2023 2:59PM EST [id number] Normal [facility] CTA CHEST (GATED) WO/W IVCON on 07-12-2023 CTA CHEST (GATED) WO/W IVCON * * *Final Report* * * DATE OF EXAM: Jul 12 2023 10:08AM [facility] 0126 - CTA CHEST (GATED) WO/W IVCON [...] aorta without acute aortic pathology. Dictated by Engineering Technical Writer: Dutch Aguilar DO I, Valdo Islas MD, have supervised the procedure and/or image review, and agree with the above interpretation and report. Drawbridge Tender: PSCB Transcribe Date/Time: Jul 12 2023 10:10A Dictated by : DUTCH AGUILAR DO This examination was interpreted and the report reviewed and electronically signed by: VALDO ISLAS MD on Jul 12 2023 2:59PM EST [id number] Normal [facility] Comprehensive metabolic 2000 panelon 07-12-2023 Albumin [Mass/Vol] 3.6 g/dL Normal 3.2-5.0 [facility] Comment on above: Order Comment: Jon russ Type: BLOOD SPECIMENOrdering Facility: [facility] Address: [address] [place] [address] Performed By: #### 2 4323-8, ####[facility] [id number] [place] [address] [place] ALP [Catalytic activity/Vol] 80 U/L Normal 45-117 [facility] Comment on above: Order Comment: Jon russ Type: BLOOD SPECIMENOrdering Facility: [facility] Address: [address] [place] [address] Performed By: #### 2 4323-8, ####[facility] [id number] [address] [place] ALT [Catalytic activity/Vol] 74 U/L High 13-61 [facility] Comment on above: Order Comment: Jon russ Type: BLOOD SPECIMENOrdering Facility: [facility] Address: [address] [place] [address] Result Comment: Resu lts may be falsely depressed after the administration of Sulfasalazine and/or Sulfapyridine. Performed By: #### 2 4323-8, ####[facility] [id number] [address] [id number] [place] Anion gap [Moles/Vol] 9 mmol/L Normal 5-16 [facility] Comment on above: Order Comment: Speci men Type: BLOOD SPECIMENOrdering Facility: [facility] Address: [address] [place] [address] Performed By: #### 2 4323-8, ####[facility] [id number] [address] [id number] [place] AST [Catalytic activity/Vol] 44 U/L High 8-34 [facility] Comment on above: Order Comment: Speci men Type: BLOOD SPECIMENOrdering Facility: [facility] Address: [address] [place] [address] Result Comment: Resu lts may be falsely depressed after the administration of Sulfasalazine and/or Sulfapyridine. Performed By: #### 2 4323-8, ####[facility] [id number] [place] [address] [place] Bilirubin [Mass/Vol] 0.4 mg/dL Normal 0.2-1.0 [facility] Comment on above: Order Comment: Speci men Type: BLOOD SPECIMENOrdering Facility: [facility] Address: [address] [place] [address] Performed By: #### 2 4323-8, ####[facility] [id number] [address] [id number] [place] Calcium [Mass/Vol] 9.2 mg/dL Normal 8.5-10.5 [facility] Comment on above: Order Comment: Speci men Type: BLOOD SPECIMENOrdering Facility: [facility] Address: [address] [place] [address] Performed By: #### 2 4323-8, ####[facility] [id number] [address] [id number] [place] Chloride [Moles/Vol] 104 mmol/L Normal 98-107 [facility] Comment on above: Order Comment: Speci men Type: BLOOD SPECIMENOrdering Facility: [facility] Address: [address] [place] [address] Performed By: #### 2 4323-8, ####[facility] [id number] [address] [id number] [place] CO2 [Moles/Vol] 26 mmol/L Normal 21-32 [facility] Comment on above: Order Comment: Speci men Type: BLOOD SPECIMENOrdering Facility: [facility] Address: [address] [place] [address] Performed By: #### 2 4323-8, ####[facility] [id number] [address] [id number] [place] Creatinine [Mass/Vol] 0.63 mg/dL Normal 0.51-0.95 [facility] Comment on above: Order Comment: Speci men Type: BLOOD SPECIMENOrdering Facility: [facility] Address: [address] [place] [address] Result Comment: Cleopatra ents receiving either N-Acetylcysteine (NAC) or Metamizole prior to venipuncture, may have falsely depressed results. Performed By: #### 2 4323-8, ####[facility]ORATORYCLIA [id number] [address] Creatinine and Glomerular filtration rate.predicted panel (S/P/Bld) 124 mL/min/1.73m??? Normal >=60 [facility] Comment on above: Order Comment: Speci men Type: BLOOD SPECIMENOrdering Facility: [facility] Address: [address] [place] [address] Result Comment: Janett mated Glomerular Filtration Rate [...] actual GFR. Performed By: #### 2 4323-, ####[facility]ATORYCLIA [id number] [place] [id number] [place] Glucose [Mass/Vol] 313 mg/dL High 70-100 [facility] Comment on above: Order Comment: Jon jeb Type: BLOOD SPECIMENOrdering Facility: [facility] Address: [address] [place] [address] Result Comment: The [place] Diabetes Association (ADA) provides guidance for cutoff [...] Standards of Medical Care in Diabetes 2016, [place] [employer]. Diabetes Care. 2016.39(Suppl 1). Results may be falsely elevated after the administration of Sulfapyridine. Results may be falsely depressed after the administration of Sulfasalazine. Performed By: #### 2 4323-8, ####[facility]ATORYCLIA [id number] [place] [id number] [place] Potassium [Moles/Vol] 4.0 mmol/L Normal 3.5-5.1 [facility] Comment on above: Order Comment: Jon russ Type: BLOOD SPECIMENOrdering Facility: [facility] Address: [address] [place] [address] Performed By: #### 2 4323-8, ####[facility]ORYCLIA [id number] [place] [id number] [place] Protein [Mass/Vol] 6.3 g/dL Normal 6.0-8.5 [facility] Comment on above: Order Comment: Jon jeb Type: BLOOD SPECIMENOrdering Facility: [facility] Address: [address] [place] [address] Performed By: #### 2 4323-8, ####[facility]ATORYCLIA [id number] [place] [id number] [place] Sodium [Moles/Vol] 139 mmol/L Normal 136-145 [facility] Comment on above: Order Comment: Speci men Type: BLOOD SPECIMENOrdering Facility: [facility] Address: [address] [place] [address] Performed By: #### 2 4323-8, ####[facility]ATORYCLIA [id number] [address] [place] Urea nitrogen [Mass/Vol] 16 mg/dL Normal 7-26 [facility] Comment on above: Order Comment: Speci men Type: BLOOD SPECIMENOrdering Facility: [facility] Address: [address] [place] [address] Performed By: #### 2 4323-8, 30962-0 ####[facility]ATORYCLIA [id number] [address] [place] ECG COMPLETEon 07-12-2023 ECG COMPLETE Ventricular Rate : 9 6 BPM Atrial Rate : 96 BPM P-R Interval : 132 ms QRS Duration : 78 ms Q-T Interval : 370 ms QTC Calculation(Bazett) : 468 ms Calculated P [place] : 49 degrees Calculated R [place] : 95 degrees Calculated T [place] : 68 degrees Normal sinus rhythm with sinus arrhythmia Normal ECG When compared with ECG of 31-JAN-2023 19:42, Nonspecific T wave abnormality no longer evident in Inferior leads Nonspecific T wave abnormality, improved in Anterolateral leads Confirmed by ANASTASIA CHENG MD ([id number]) on 07/13/2023 7:59:29 PM NAME : KATHLEEN VILLA PID : [id number] : 1995 Gender : Female Race : ORD : [id number] Procedure Date : Jul 12 2023 03:45:28 Edit Date : Jul 13 2023 19:59:34 Diagnosis: Normal sinus rhythm with sinus arrhythmia Normal ECG When compared with ECG of 31-JAN-2023 19:42, Nonspecific T wave abnormality no longer evident in Inferior leads Nonspecific T wave abnormality, improved in Anterolateral leads Confirmed by ANASTASIA CHENG MD ([id number]) on 07/13/2023 7:59:29 PM Test Reason : STAT Location : 0 : ED A Overread By : ANASTASIA CHENG MD Edited By : ANASTASIA CHENG MD Referred By : , Acquired by : [facility], [facility] ED NOTEon 07-12-2023 ED NOTE HNO ID: [id number] Author: Vinayak Arevalo, STIVEN Service: ? Author Type: Registered Nurse Type: ED Notes Filed: 07/12/2023 10:15 AM Note Text: Pt c/o CP after CT. Dr Cortes notified [facility] ED NOTE HNO ID: [id number] Author: Jhoana Hope RN Service: ? Author Type: Registered Nurse Type: ED Notes Filed: 07/12/2023 6:05 AM Note Text: Failed IV/ Blood draw attempts x 2 by multiple staff members. Pt states she has a port and would like it accessed. [facility] ED PROV NOTEon 07-12-2023 ED PROV NOTE HNO ID: [id number] Author: Zohreh Cortes MD Service: ? Author [...] and time. (more content not included)... Normal [facility] HIGH SENSITIVITY TROPONIN Io n 07-12-2023 Tropinin I.cardiac panel High sensitivity method <2.5 Normal 0.0-34.0 [facility] Comment on above: Order Comment: Speci men Type: BLOOD SPECIMEN Ordering Facility: [facility] Address: [address] [place] [id number] Result Comment: This assay uses different antibodies than our current assay, and assays, even by the same ethylene oxide panelboard operator may recognize different regions of the antibody and cannot be used interchangeably. Expect results of this assay to run higher than the previous assay. Performed By: #### 3 1201-7, 5195-3, 38304-9, SYPH #### [facility] CLIA [id number] [facility] [employer] [place] [address] [place] Tropinin I.cardiac panel High sensitivity method 3.3 pg/mL Normal 0.0-34.0 [facility] Comment on above: Order Comment: Speci men Type: BLOOD SPECIMEN Ordering Facility: [facility] Address: [address] [place] [address] Result Comment: This assay uses different antibodies than our current assay, and assays, even by the same ethylene oxide panelboard operator may recognize different regions of the antibody and cannot be used interchangeably. Expect results of this assay to run higher than the previous assay. Performed By: #### 3 1201-7, 5195-3, 29207-8, SYPH #### [facility] CLIA [id number] [address] [place] [address] [place] Lipase SerPl-cCncon 07-12-20 23 Lipase [Catalytic activity/Vol] 23 U/L Normal 12-60 [facility] Comment on above: Order Comment: Speci men Type: BLOOD SPECIMENOrdering Facility: [facility] Address: [address] [place] [address] Performed By: #### 3 040-3 ####[facility]ATORYCLIA [id number] [place] [address] [place] MORPH WAM REFLEXon 3 Platelets Estimate (Bld) [#/Vol] Decreased Normal [facility] Comment on above: Order Comment: Speci men Type: BLOOD SPECIMEN Ordering Facility: [facility] Address: [address] [place] [address] Performed By: #### 3 1201-7, 5195-3, 34854-3, SYPH #### [facility] CLIA [id number] [address] [place] [address] [place] RED CELL MORPH Reviewed: unremarkable Normal [facility] Comment on above: Order Comment: Speci men Type: BLOOD SPECIMEN Ordering Facility: [facility] Address: [address] [place] [address] Performed By: #### 3 1201-7, 5195-3, 29063-7, SYPH #### [facility] CLIA [id number] [address] [place] [address] [place] Magnesium SerPl-mCncon 07-12 Magnesium [Mass/Vol] 1.8 mg/dL Normal 1.6-2.6 [facility] Comment on above: Order Comment: Speci men Type: BLOOD SPECIMEN Ordering Facility: [facility] Address: [place] [address] Performed By: #### 3 1201-7, 5195-3, 23040-8, SYPH #### [facility] CLIA [id number] [address] [place], [place] [id number] [facility] XR CHEST 2V FRONTAL/LATon XR CHEST 2V [...] significant acute radiographic abnormality of the chest. Drawbridge Tender: PSCB Transcribe Date/Time: Jul 12 2023 4:44A Dictated by : LETICIA HUTCHINS MD This examination was interpreted and the report reviewed and electronically signed by: LETICIA HUTCHINS MD on Jul 12 2023 4:45AM EST [id number] Normal [facility] Absolute lymphocyte countOrd ered By: Siddharth Herrera on 06-26-2023 Lymphocytes Auto (Unsp spec) [#/Vol] 0.96 10*3/uL 0.83-4.51 [facility] Basophil percentageOrdered B y: Siddharth Herrera on 06-26-2023 Basophils/100 WBC (Bld) 0.1 % 0-1 [facility] Bilirubin [Mass/Vol] 0.90 mg/dL 0.20-1.00 [facility] Comment on above: For patients on eltr ombopag therapy, use of Dimension Hale TBIL is not recommended. Chloride [Moles/Vol] 104 mmol/L 98-107 [facility] Eosinophils/100 WBC (Bld) 0.0 % 0-5 [facility] Glucose [Mass/Vol] 254 mg/dL 74-106 [facility] Comment on above: Glucose result great er than or equal to 200 mg/dLsuggests DIABETES MELLITUS per A.D.A. criteria. Neutrophils (Bld) [#/Vol] 12.6 10*3/uL 2.0-7.7 [facility] Neutrophils/100 WBC (Bld) 88.9 % 47-70 [facility] Potassium [Moles/Vol] 3.5 mmol/L 3.5-5.1 [facility] Protein [Mass/Vol] 6.8 g/dL 6.4-8.2 [facility] Sodium [Moles/Vol] 137 mmol/L 136-145 [facility] WBC (Bld) [#/Vol] 14.2 10*3/uL 4.4-11.0 [facility] Blood erythrocytes count (nu mber/volume)Ordered By: Siddharth Herrera on 06-26-2023 RBC (Bld) [#/Vol] 4.21 10*6/uL 4.2-5.4 [facility] Blood hemoglobin measurement (mass/volume)Ordered By: Siddharth Herrera on 06-26-2023 Hemoglobin (Bld) [Mass/Vol] 12.3 g/dL 12.0-15.0 [facility] Blood lymphocytes/100 leukoc ytesOrdered By: Siddharth Herrera on 06-26-2023 Lymphocytes/100 WBC (Bld) 6.8 % 19-41 [facility] Blood monocytes/100 leukocyt esOrdered By: Siddharth Herrera on 06-26-2023 Monocytes/100 WBC (Bld) 3.4 % 0-10 [facility] Blood platelet mean volumeOr dered By: Siddharth Herrera on 06-26-2023 Platelet mean volume (Bld) [Entitic vol] 12.7 fL 6.2-12.0 [facility] Determination of erythrocyte mean corpuscular volume (MCV)Ordered By: Siddharth Herrera on 06-26-2023 MCV (RBC) [Entitic vol] 90.5 fL 81-99 [facility] Hematocrit Auto (Bld) [Volum e fraction]Ordered By: [facility] on 06-26-2023 Hematocrit (Bld) [Volume fraction] 38.1 % 37-47 [facility] - Chemistry and C hemistry - challengeOrdered By: Siddharth Sharon on 06-26-2023 ALP [Catalytic activity/Vol] 86 U/L 45-117 [facility] ALT [Catalytic activity/Vol] 69 U/L 13-56 [facility] CO2 [Moles/Vol] 21.0 mmol/L 21.0-32.0 [facility] Globulin (S) [Mass/Vol] 3.2 g/dL 2.2-4.2 [facility] Lipase [Catalytic activity/Vol] U/L 13-75 [facility] Comment on above: Please note:LIPASE r evised reference range effective 22. New Lipase methodology. Expected to produce lower values than the previous assay method. NEW Reference Range: 13 - 75 U/L Urea nitrogen/Creatinine [Mass ratio] 18.9 mg/mg 10-20 [facility] - Hematology and Cell countsOrdered By: Siddharth Sharon on 06-26-2023 Erythrocyte distribution width (RBC) [Entitic vol] 42.9 fL 35.1-43.9 [facility] Erythrocyte distribution width (RBC) [Ratio] 13.0 % 11.6-14.6 [facility] Immature granulocytes/100 WBC (Bld) 0.800 % 0.0-0.9 [facility] Comment on above: IG% - Immature Granu locytes (promyelocytes, myelocytes and metamyelocytes) > 1% indicates that a LEFT SHIFT is Present. MCH (RBC) [Entitic mass] 29.2 pg 27.0-32.0 [facility] Nucleated RBC/100 WBC (Bld) [Ratio] 0 % 0-5 [facility] MCHC Auto (RBC) [Mass/Vol]Or dered By: Siddharth Herrera on 06-26-2023 MCHC (RBC) [Mass/Vol] 32.3 g/dL 32-36 [facility] No Panel InformationOrdered By: Siddharth Herrera on 06-26-2023 Estimated Creatinine Clearance Calc 102.98 ml/min [facility] Estimated GFR (MDRD) Amer 102 mL/min >60 [facility] Comment on above: GFR Calc Estimated GFR (MDRD) Non-Af Amer 84 mL/min >60 [facility] Comment on above: Non- GFR Calc Platelets bldOrdered By: Margarita Herrera on 06-26-2023 Platelets (Bld) [#/Vol] 160 10*3/uL 150-450 [facility] Serum or plasma albumin milli urement (mass/volume)Ordered By: Siddharth Herrera on 06-26-2023 Albumin [Mass/Vol] 3.6 g/dL 3.2-5.0 [facility] Serum or plasma albumin/glob ulin mass ratioOrdered By: Siddharth Herrera on 06-26-2023 Albumin/Globulin [Mass ratio] 1.1 {ratio} 0.9-2.4 [facility] Serum or plasma calcium milli urement (mass/volume)Ordered By: Siddharth Herrera on 06-26-2023 Calcium [Mass/Vol] 8.8 mg/dL 8.5-10.1 [facility] Serum or plasma creatinine m easurement (mass/volume)Ordered By: Siddharth Herrera on 06-26-2023 Creatinine [Mass/Vol] 0.85 mg/dL 0.55-1.02 [facility] Comment on above: The validity of the calculated GFR & GFRAA in patients over 70 years has not been determined. Clinical correlation is essential. Serum or plasma urea nitroge n measurement (mass/volume)Ordered By: Siddharth Herrera on 06-26-2023 Urea nitrogen [Mass/Vol] 16 mg/dL 7-18 [facility] Thin prep Papanicolaou smear with manual screeningOrdered By: Siddharth Herrera on 06-26-2023 Thin prep Papanicolaou smear with manual screening 35 U/L 15-37 [facility] Thin prep Papanicolaou smear with manual screening 12 5-15 [facility] Absolute lymphocyte countOrd ered By: Greg Philip on 06-25-2023 Lymphocytes Auto (Unsp spec) [#/Vol] 2.12 10*3/uL 0.83-4.51 [facility] Basophil percentageOrdered B y: Greg Philip on 06-25-2023 Basophils/100 WBC (Bld) 0.4 % 0-1 [facility] Bilirubin [Mass/Vol] 0.60 mg/dL 0.20-1.00 [facility] Comment on above: For patients on eltr ombopag therapy, use of Dimension [place] TBIL is not recommended. Chloride [Moles/Vol] 109 mmol/L 98-107 [facility] Eosinophils/100 WBC (Bld) 0.4 % 0-5 [facility] Glucose [Mass/Vol] 283 mg/dL 74-106 [facility] Comment on above: Glucose result great er than or equal to 200 mg/dLsuggests DIABETES MELLITUS per A.D.A. criteria. Neutrophils (Bld) [#/Vol] 9.2 10*3/uL 2.0-7.7 [facility] Neutrophils/100 WBC (Bld) 75.9 % 47-70 [facility] Potassium [Moles/Vol] 3.8 mmol/L 3.5-5.1 [facility] Protein [Mass/Vol] 6.9 g/dL 6.4-8.2 [facility] Sodium [Moles/Vol] 140 mmol/L 136-145 [facility] WBC (Bld) [#/Vol] 12.1 10*3/uL 4.4-11.0 [facility] Beta hCG serum qualOrdered B y: Greg Philip on 06-25-2023 Beta HCG ( test) Ql Negative [facility] Blood erythrocytes count (nu mber/volume)Ordered By: Greg Philip on 06-25-2023 RBC (Bld) [#/Vol] 4.56 10*6/uL 4.2-5.4 [facility] Blood hemoglobin measurement (mass/volume)Ordered By: Greg Philip on 06-25-2023 Hemoglobin (Bld) [Mass/Vol] 13.5 g/dL 12.0-15.0 [facility] Blood lymphocytes/100 leukoc ytesOrdered By: Greg Philip on 06-25-2023 Lymphocytes/100 WBC (Bld) 17.5 % 19-41 [facility] Blood monocytes/100 leukocyt esOrdered By: Greg Philip on 06-25-2023 Monocytes/100 WBC (Bld) 5.0 % 0-10 [facility] Blood platelet mean volumeOr dered By: Greg Philip on 06-25-2023 Platelet mean volume (Bld) [Entitic vol] 12.9 fL 6.2-12.0 [facility] Determination of erythrocyte mean corpuscular volume (MCV)Ordered By: Greg Philip on 06-25-2023 MCV (RBC) [Entitic vol] 89.5 fL 81-99 [facility] Hematocrit Auto (Bld) [Volum e fraction]Ordered By: Greg Philip on 06-25-2023 Hematocrit (Bld) [Volume fraction] 40.8 % 37-47 [facility] - Chemistry and C hemistry - challengeOrdered By: Greg Philip on 06-25-2023 ALP [Catalytic activity/Vol] 85 U/L 45-117 [facility] ALT [Catalytic activity/Vol] 70 U/L 13-56 [facility] CO2 [Moles/Vol] 22.0 mmol/L 21.0-32.0 [facility] Globulin (S) [Mass/Vol] 3.2 g/dL 2.2-4.2 [facility] Lipase [Catalytic activity/Vol] 16 U/L 13-75 [facility] Comment on above: Please note:LIPASE r evised reference range effective 22. New Lipase methodology. Expected to produce lower values than the previous assay method. NEW Reference Range: 13 - 75 U/L Urea nitrogen/Creatinine [Mass ratio] 17.3 mg/mg 10-20 [facility] - Hematology and Cell countsOrdered By: Greg Philip on 06-25-2023 Erythrocyte distribution width (RBC) [Entitic vol] 42.5 fL 35.1-43.9 [facility] Erythrocyte distribution width (RBC) [Ratio] 13.1 % 11.6-14.6 [facility] Immature granulocytes/100 WBC (Bld) 0.800 % 0.0-0.9 [facility] Comment on above: IG% - Immature Granu locytes (promyelocytes, myelocytes and metamyelocytes) > 1% indicates that a LEFT SHIFT is Present. MCH (RBC) [Entitic mass] 29.6 pg 27.0-32.0 [facility] Nucleated RBC/100 WBC (Bld) [Ratio] 0 % 0-5 [facility] MCHC Auto (RBC) [Mass/Vol]Or dered By: Greg Philip on 06-25-2023 MCHC (RBC) [Mass/Vol] 33.1 g/dL 32-36 [facility] No Panel InformationOrdered By: Greg Philip on 06-25-2023 Estimated Creatinine Clearance Calc 104.31 ml/min [facility] Estimated GFR (MDRD) Amer 108 mL/min >60 [facility] Comment on above: GFR Calc Estimated GFR (MDRD) Non-Af Amer 89 mL/min >60 [facility] Comment on above: Non- GFR Calc Platelets bldOrdered By: Allyn Philip on 06-25-2023 Platelets (Bld) [#/Vol] 180 10*3/uL 150-450 [facility] Serum or plasma albumin milli urement (mass/volume)Ordered By: Greg Philip on 06-25-2023 Albumin [Mass/Vol] 3.7 g/dL 3.2-5.0 [facility] Serum or plasma albumin/glob ulin mass ratioOrdered By: Greg Philip on 06-25-2023 Albumin/Globulin [Mass ratio] 1.2 {ratio} 0.9-2.4 [facility] Serum or plasma calcium milli urement (mass/volume)Ordered By: Greg Philip on 06-25-2023 Calcium [Mass/Vol] 9.1 mg/dL 8.5-10.1 [facility] Serum or plasma creatinine m easurement (mass/volume)Ordered By: Greg Philip on 06-25-2023 Creatinine [Mass/Vol] 0.81 mg/dL 0.55-1.02 [facility] Comment on above: The validity of the calculated GFR & GFRAA in patients over 70 years has not been determined. Clinical correlation is essential. Serum or plasma urea nitroge n measurement (mass/volume)Ordered By: Greg Philip on 06-25-2023 Urea nitrogen [Mass/Vol] 14 mg/dL 7-18 [facility] Thin prep Papanicolaou smear with manual screeningOrdered By: Greg Philip on 06-25-2023 Thin prep Papanicolaou smear with manual screening 39 U/L 15-37 [facility] Thin prep Papanicolaou smear with manual screening 9 5-15 [facility] HEMOGLOBIN A1C (POC)on 05-31 HbA1c (Bld) [Mass fraction] 7.2 % Abnormal 4.2 - 5.6 % [facility] CNPNon 05-23-2023 CNPN Telephone (FAMPOR) KATHLEEN VILLA ([id number]) 1995 F T Date Time Provider Department 05/23/[address] [facility] During your visit today, we recorded [...] Encounter Status:Closed by EUNICE MCDONALD on 05/23/23 [facility] Basophil percentageOrdered B y: Lin Johansen on 05-03-2023 Chloride [Moles/Vol] 111 mmol/L 98-107 [facility] Glucose [Mass/Vol] 230 mg/dL 74-106 [facility] Comment on above: Glucose result great er than or equal to 200 mg/dLsuggests DIABETES MELLITUS per A.D.A. criteria. Potassium [Moles/Vol] 3.7 mmol/L 3.5-5.1 [facility] Sodium [Moles/Vol] 142 mmol/L 136-145 [facility] Beta hCG serum qualOrdered B y: Marc Carl on 05-03-2023 Beta HCG ( test) Ql Negative [facility] - Chemistry and C hemistry - challengeOrdered By: Lin Johansen on 05-03-2023 CO2 [Moles/Vol] 22.0 mmol/L 21.0-32.0 [facility] Urea nitrogen/Creatinine [Mass ratio] 12.8 mg/mg 10-20 [facility] No Panel InformationOrdered By: Lin Johansen on 05-03-2023 Estimated Creatinine Clearance Calc 141.18 ml/min [facility] Estimated GFR (MDRD) Amer 145 mL/min >60 [facility] Comment on above: GFR Calc Estimated GFR (MDRD) Non-Af Amer 120 mL/min >60 [facility] Comment on above: Non- GFR Calc Serum or plasma acetone imlli urement (mass/volume)Ordered By: Marc Carl on 05-03-2023 Acetone [Mass/Vol] MODERATE NEG [facility] Serum or plasma calcium milli urement (mass/volume)Ordered By: Lin Johansen on 05-03-2023 Calcium [Mass/Vol] 7.7 mg/dL 8.5-10.1 [facility] Serum or plasma creatinine m easurement (mass/volume)Ordered By: Lin Johansen on 05-03-2023 Creatinine [Mass/Vol] 0.62 mg/dL 0.55-1.02 [facility] Comment on above: The validity of the calculated GFR & GFRAA in patients over 70 years has not been determined. Clinical correlation is essential. Serum or plasma urea nitroge n measurement (mass/volume)Ordered By: Lin Johansen on 05-03-2023 Urea nitrogen [Mass/Vol] 8 mg/dL 7-18 [facility] Thin prep Papanicolaou smear with manual screeningOrdered By: Lin Johansen on 05-03-2023 Thin prep Papanicolaou smear with manual screening 9 5-15 [facility] Absolute lymphocyte countOrd ered By: Ileana Lobo on 04-29-2023 Lymphocytes Auto (Unsp spec) [#/Vol] 2.07 10*3/uL 0.83-4.51 [facility] Basophil percentageOrdered B y: Ileana Lobo on 04-29-2023 Basophils/100 WBC (Bld) 0.3 % 0-1 [facility] Chloride [Moles/Vol] 108 mmol/L 98-107 [facility] Eosinophils/100 WBC (Bld) 0.0 % 0-5 [facility] Glucose [Mass/Vol] 258 mg/dL 74-106 [facility] Comment on above: Glucose result great er than or equal to 200 mg/dLsuggests DIABETES MELLITUS per A.D.A. criteria. Neutrophils (Bld) [#/Vol] 11.5 10*3/uL 2.0-7.7 [facility] Neutrophils/100 WBC (Bld) 79.4 % 47-70 [facility] Potassium [Moles/Vol] 4.5 mmol/L 3.5-5.1 [facility] Sodium [Moles/Vol] 136 mmol/L 136-145 [facility] WBC (Bld) [#/Vol] 14.4 10*3/uL 4.4-11.0 [facility] Blood erythrocytes count (nu mber/volume)Ordered By: Ileana Lobo on 04-29-2023 RBC (Bld) [#/Vol] 3.86 10*6/uL 4.2-5.4 [facility] Blood hemoglobin measurement (mass/volume)Ordered By: Ileana Lobo on 04-29-2023 Hemoglobin (Bld) [Mass/Vol] 11.5 g/dL 12.0-15.0 [facility] Blood lymphocytes/100 leukoc ytesOrdered By: Ileana Lobo on 04-29-2023 Lymphocytes/100 WBC (Bld) 14.3 % 19-41 [facility] Blood monocytes/100 leukocyt esOrdered By: Ileana Lobo on 04-29-2023 Monocytes/100 WBC (Bld) 4.9 % 0-10 [facility] Blood platelet mean volumeOr dered By: Ileana Lobo on 04-29-2023 Platelet mean volume (Bld) [Entitic vol] 11.6 fL 6.2-12.0 [facility] Determination of erythrocyte mean corpuscular volume (MCV)Ordered By: Ileana Lobo on 04-29-2023 MCV (RBC) [Entitic vol] 91.2 fL 81-99 [facility] Glucose Glucometer (dC) [M ass/Vol]Ordered By: Ileana Lobo on 04-29-2023 Glucose [Mass/Vol] 210 mg/dL 74-106 [facility] Comment on above: MANAGEMENT OF PATIEN T CARE PER NURSING PROTOCOL Hematocrit Auto (Bld) [Volum e fraction]Ordered By: Ileana Lobo on 04-29-2023 Hematocrit (Bld) [Volume fraction] 35.2 % 37-47 [facility] - Chemistry and C hemistry - challengeOrdered By: Ileana Lobo on 04-29-2023 CO2 [Moles/Vol] 19.0 mmol/L 21.0-32.0 [facility] Urea nitrogen/Creatinine [Mass ratio] 11.6 mg/mg 10-20 [facility] - Hematology and Cell countsOrdered By: Ileana Lobo on 04-29-2023 Erythrocyte distribution width (RBC) [Entitic vol] 47.9 fL 35.1-43.9 [facility] Erythrocyte distribution width (RBC) [Ratio] 14.3 % 11.6-14.6 [facility] Immature granulocytes/100 WBC (Bld) 1.100 % 0.0-0.9 [facility] Comment on above: IG% - Immature Granu locytes (promyelocytes, myelocytes and metamyelocytes) > 1% indicates that a LEFT SHIFT is Present. MCH (RBC) [Entitic mass] 29.8 pg 27.0-32.0 [facility] Nucleated RBC/100 WBC (Bld) [Ratio] 0 % 0-5 [facility] MCHC Auto (RBC) [Mass/Vol]Or dered By: Ileana Lobo on 04-29-2023 MCHC (RBC) [Mass/Vol] 32.7 g/dL 32-36 [facility] No Panel InformationOrdered By: Ileana Lobo on 04-29-2023 Estimated Creatinine Clearance Calc 112.22 ml/min [facility] Estimated GFR (MDRD) Amer 113 mL/min >60 [facility] Comment on above: GFR Calc Estimated GFR (MDRD) Non-Af Amer 93 mL/min >60 [facility] Comment on above: Non- GFR Calc Platelets bldOrdered By: Jes Lobo on 04-29-2023 Platelets (Bld) [#/Vol] 143 10*3/uL 150-450 [facility] Serum or plasma calcium milli urement (mass/volume)Ordered By: Ileana Lobo on 04-29-2023 Calcium [Mass/Vol] 8.0 mg/dL 8.5-10.1 [facility] Serum or plasma creatinine m easurement (mass/volume)Ordered By: Ileana Lobo on 04-29-2023 Creatinine [Mass/Vol] 0.78 mg/dL 0.55-1.02 [facility] Comment on above: The validity of the calculated GFR & GFRAA in patients over 70 years has not been determined. Clinical correlation is essential. Serum or plasma urea nitroge n measurement (mass/volume)Ordered By: Ileana Lobo on 04-29-2023 Urea nitrogen [Mass/Vol] 9 mg/dL 7-18 [facility] Thin prep Papanicolaou smear with manual screeningOrdered By: Ileana Lobo on 04-29-2023 Thin prep Papanicolaou smear with manual screening 9 5-15 [facility] Assessment of wrist artery p atency prior to arterial punctureOrdered By: David Smith on 04-28-2023 Arterial patency Wrist artery --pre arterial puncture Positive [facility] Base excessOrdered By: Demond Smith on 04-28-2023 Base excess Calc (BldV) [Moles/Vol] -6 mmol/L -2-2 [facility] Basophil percentageOrdered B y: Ileana Lobo on 04-28-2023 Basophil percentage 0-5 SEEN /hpf 0-5 [facility] Basophil percentageOrdered B y: David Smith on 04-28-2023 Basophil percentage 18.2 mmol/L 22-26 [facility] Basophils/100 WBC (Bld) 99 % 95-99 [facility] Bilirubin Test strip Ql (U)O rdered By: Ileana Lobo on 04-28-2023 Bilirubin Ql (U) Negative Negative [facility] CO2 (BldA) [Partial pressure ]Ordered By: David Smith on 04-28-2023 CO2 (Bld) [Partial pressure] 26.7 mm[Hg] 35-45 [facility] Culture, urineOrdered By: Jocelyne Lobo on 04-28-2023 Bacteria identified Cx Nom (U) Positive [facility] Bacteria identified Cx Nom (U) Positive [facility] Ketones Test strip Ql (U)Ord ered By: Ileana Lobo on 04-28-2023 Ketones Ql (U) 150 mg/dl Negative [facility] Comment on above: CRITICAL VALUE *HCRI TICAL VALUE VERIFIED. CALLED TO [id number] Emily Felix.RESULTS READ BACK BY SAME . Laboratory - Chemistry and C hemistry - challengeOrdered By: Ileana Lobo on 04-28-2023 Magnesium [Mass/Vol] 2.1 mg/dL 1.6-2.6 [facility] Laboratory - Drug toxicology Ordered By: Ileana Lobo on 04-28-2023 Amphetamines Ql (U) Negative <1000 ng/mL [facility] Benzodiazepines Ql (U) Negative < 200 ng/mL [facility] Cannabinoids Screen Ql (U) Positive < 50 ng/mL [facility] Cocaine Ql (U) Negative < 300 ng/mL [facility] Opiates Ql (U) Negative < 300 ng/mL [facility] Mucus LM Ql (Urine sed)Order ed By: Ileana Lobo on 04-28-2023 Mucus Ql (Urine sed) 0 SEEN /hpf [facility] Nitrite Test strip Ql (U)Ord ered By: Ileana Lobo on 04-28-2023 Nitrite Ql (U) Negative Negative [facility] No Panel InformationOrdered By: Ileana Lobo on 04-28-2023 MDMA (Ecstasy) Screen Negative < 500 ng/mL [facility] Urine Barbiturates Screen Negative < 200 ng/mL [facility] Urine Drug Screen Comment [facility] Comment on above: CONFIRMATORY TESTING FOR [...] Methadone Screen Negative < 300 ng/mL [facility] No Panel InformationOrdered By: David Smith on 04-28-2023 Blood Gas Sample Site R Radial [facility] Blood Gas Specimen Type ART [facility] Blood Gas Total CO2 19 mmol/L [facility] Oxygen (BldA) [Partial press ure]Ordered By: David Smith on 04-28-2023 Oxygen (Bld) [Partial pressure] 107 mmHG 75-100 [facility] Protein Test strip Ql (U)Ord ered By: Ileana Lobo on 04-28-2023 Protein Ql (U) Negative Negative [facility] Serum or plasma acetone milli urement (mass/volume)Ordered By: Vincenzo Castañeda on 04-28-2023 Acetone [Mass/Vol] SMALL NEG [facility] Serum procalcitonin measurem entOrdered By: Ileana Lobo on 04-28-2023 Procalcitonin [Mass/Vol] 0.08 ng/mL 0.00-0.09 [facility] Comment on above: A procalcitonin (PCT [...] Ql (Urine sed) 0 SEEN /hpf 5-10 [facility] Urine blood detectionOrdered By: Ileana Lobo on 04-28-2023 RBC Ql (U) Negative Negative [facility] RBC Ql (U) 0 SEEN /hpf 0-5 [facility] Urine clarityOrdered By: Jes Lobo on 04-28-2023 Clarity (U) Clear Clear [facility] Urine color determinationOrd ered By: Ileana Lobo on 04-28-2023 Color (U) Straw Yellow [facility] Urine glucose detectionOrder ed By: Ileana Lobo on 04-28-2023 Glucose Ql (U) 100 mg/dl Normal [facility] Urine leukocyte esterase det ection by dipstickOrdered By: Ileana Lobo on 04-28-2023 Leukocyte esterase Test strip Ql (U) 25 /ul Negative [facility] Urine pHOrdered By: Ileana mayorga on 04-28-2023 pH (U) 5.0 [pH] 5.0 - 8.0 [facility] Urine phencyclidine (PCP) de tectionOrdered By: Ileana Lobo on 04-28-2023 Phencyclidine Ql (U) Negative < 25 ng/mL [facility] Urine sediment bacteria coun t by microscopy (number/high power field)Ordered By: Ileana Lobo on 04-28-2023 Bacteria LM.HPF (Urine sed) [#/Area] 0 /[HPF] None Seen [facility] Urine specific gravity measu rementOrdered By: Ileana Lobo on 04-28-2023 Specific gravity (U) [Rel density] 1.010 1.002-1.030 [facility] Urobilinogen Auto test strip Ql (U)Ordered By: Ileana Lobo on 04-28-2023 Urobilinogen Ql (U) Normal mg/dl Normal [facility] pH measurementOrdered By: Gloria Smith on 04-28-2023 pH (Unsp spec) 7.44 [pH] 7.35-7.45 [facility] Absolute lymphocyte countOrd ered By: Lin Johansen on 04-27-2023 Lymphocytes Auto (Unsp spec) [#/Vol] 0.67 10*3/uL 0.83-4.51 [facility] Basophil percentageOrdered B y: Lin Johansen on 04-27-2023 Basophils/100 WBC (Bld) 0.2 % 0-1 [facility] Bilirubin [Mass/Vol] 1.00 mg/dL 0.20-1.00 [facility] Comment on above: For patients on eltr ombopag therapy, use of Dimension [facility] TBIL is not recommended. Chloride [Moles/Vol] 102 mmol/L 98-107 [facility] Eosinophils/100 WBC (Bld) 0.0 % 0-5 [facility] Glucose [Mass/Vol] 313 mg/dL 74-106 [facility] Comment on above: Glucose result great er than or equal to 200 mg/dLsuggests DIABETES MELLITUS per A.D.A. criteria. Neutrophils (Bld) [#/Vol] 19.6 10*3/uL 2.0-7.7 [facility] Neutrophils/100 WBC (Bld) 93.9 % 47-70 [facility] Potassium [Moles/Vol] 5.1 mmol/L 3.5-5.1 [facility] Protein [Mass/Vol] 7.5 g/dL 6.4-8.2 [facility] Sodium [Moles/Vol] 130 mmol/L 136-145 [facility] WBC (Bld) [#/Vol] 20.9 10*3/uL 4.4-11.0 [facility] Blood erythrocytes count (nu mber/volume)Ordered By: Lin Johansen on 04-27-2023 RBC (Bld) [#/Vol] 4.65 10*6/uL 4.2-5.4 [facility] Blood hemoglobin measurement (mass/volume)Ordered By: Lin Johansen on 04-27-2023 Hemoglobin (Bld) [Mass/Vol] 13.5 g/dL 12.0-15.0 [facility] Blood lymphocytes/100 leukoc ytesOrdered By: Lin Johansen on 04-27-2023 Lymphocytes/100 WBC (Bld) 3.2 % 19-41 [facility] Blood monocytes/100 leukocyt esOrdered By: Lin Johansen on 04-27-2023 Monocytes/100 WBC (Bld) 0.9 % 0-10 [facility] Blood platelet mean volumeOr dered By: Lin Johansen on 04-27-2023 Platelet mean volume (Bld) [Entitic vol] 12.5 fL 6.2-12.0 [facility] Determination of erythrocyte mean corpuscular volume (MCV)Ordered By: Lin Johansen on 04-27-2023 MCV (RBC) [Entitic vol] 90.3 fL 81-99 [facility] Direct bilirubinOrdered By: Lin Johansen on 04-27-2023 Bilirubin.direct [Mass/Vol] 0.30 mg/dL 0.00-0.30 [facility] Glucose Glucometer (dC) [M ass/Vol]Ordered By: Lin Johansen on 04-27-2023 Glucose [Mass/Vol] 206 mg/dL 74-106 [facility] Comment on above: MANAGEMENT OF PATIEN T CARE PER NURSING PROTOCOL Hematocrit Auto (Bld) [Volum e fraction]Ordered By: Lin Johansen on 04-27-2023 Hematocrit (Bld) [Volume fraction] 42.0 % 37-47 [facility] Laboratory - Chemistry and C hemistry - challengeOrdered By: Lin Johansen on 04-27-2023 ALP [Catalytic activity/Vol] 85 U/L 45-117 [facility] ALT [Catalytic activity/Vol] 22 U/L 13-56 [facility] CO2 [Moles/Vol] 13.0 mmol/L 21.0-32.0 [facility] Globulin (S) [Mass/Vol] 3.5 g/dL 2.2-4.2 [facility] Lipase [Catalytic activity/Vol] 10 U/L 13-75 [facility] Comment on above: Please note:LIPASE r evised reference range effective 22. New Lipase methodology. Expected to produce lower values than the previous assay method. NEW Reference Range: 13 - 75 U/L Urea nitrogen/Creatinine [Mass ratio] 13.9 mg/mg 10-20 [facility] Laboratory - Hematology and Cell countsOrdered By: Lin Johansen on 04-27-2023 Erythrocyte distribution width (RBC) [Entitic vol] 46.5 fL 35.1-43.9 [facility] Erythrocyte distribution width (RBC) [Ratio] 14.2 % 11.6-14.6 [facility] Immature granulocytes/100 WBC (Bld) 1.800 % 0.0-0.9 [facility] Comment on above: IG% - Immature Granu locytes (promyelocytes, myelocytes and metamyelocytes) > 1% indicates that a LEFT SHIFT is Present. MCH (RBC) [Entitic mass] 29.0 pg 27.0-32.0 [facility] Nucleated RBC/100 WBC (Bld) [Ratio] 0 % 0-5 [facility] MCHC Auto (RBC) [Mass/Vol]Or dered By: Lin Johansen on 04-27-2023 MCHC (RBC) [Mass/Vol] 32.1 g/dL 32-36 [facility] No Panel InformationOrdered By: Lin Johansen on 04-27-2023 Estimated Creatinine Clearance Calc 78.23 ml/min [facility] Estimated GFR (MDRD) Amer 77 mL/min >60 [facility] Comment on above: GFR Calc Estimated GFR (MDRD) Non-Af Amer 64 mL/min >60 [facility] Comment on above: Non- GFR Calc Platelets bldOrdered By: Vicenta Johansen on 04-27-2023 Platelets (Bld) [#/Vol] 158 10*3/uL 150-450 [facility] Serum or plasma albumin milli urement (mass/volume)Ordered By: Lin Johansen on 04-27-2023 Albumin [Mass/Vol] 4.0 g/dL 3.2-5.0 [facility] Serum or plasma calcium milli urement (mass/volume)Ordered By: Lin Johansen on 04-27-2023 Calcium [Mass/Vol] 9.4 mg/dL 8.5-10.1 [facility] Serum or plasma creatinine m easurement (mass/volume)Ordered By: Lin Johansen on 04-27-2023 Creatinine [Mass/Vol] 1.08 mg/dL 0.55-1.02 [facility] Comment on above: The validity of the calculated GFR & GFRAA in patients over 70 years has not been determined. Clinical correlation is essential. Serum or plasma urea nitroge n measurement (mass/volume)Ordered By: Lin Johansen on 04-27-2023 Urea nitrogen [Mass/Vol] 15 mg/dL 7-18 [facility] Thin prep Papanicolaou smear with manual screeningOrdered By: Lin Johansen on 04-27-2023 Thin prep Papanicolaou smear with manual screening 10 U/L 15-37 [facility] Thin prep Papanicolaou smear with manual screening 15 5-15 [facility] Absolute lymphocyte countOrd ered By: Loki Soria on 04-26-2023 Lymphocytes Auto (Unsp spec) [#/Vol] 1.87 10*3/uL 0.83-4.51 [facility] Basophil percentageOrdered B y: Loki Soria on 04-26-2023 Basophils/100 WBC (Bld) 0.3 % 0-1 [facility] Chloride [Moles/Vol] 106 mmol/L 98-107 [facility] Eosinophils/100 WBC (Bld) 0.4 % 0-5 [facility] Glucose [Mass/Vol] 108 mg/dL 74-106 [facility] Comment on above: Fasting Glucose resu lt from 100 to 125 mg/dL suggests IMPAIRED HOMEOSTASIS per A.D.A. criteria. Neutrophils (Bld) [#/Vol] 10.8 10*3/uL 2.0-7.7 [facility] Neutrophils/100 WBC (Bld) 78.6 % 47-70 [facility] Potassium [Moles/Vol] 3.9 mmol/L 3.5-5.1 [facility] Sodium [Moles/Vol] 135 mmol/L 136-145 [facility] WBC (Bld) [#/Vol] 13.8 10*3/uL 4.4-11.0 [facility] Blood erythrocytes count (nu mber/volume)Ordered By: Loki Soria on 04-26-2023 RBC (Bld) [#/Vol] 4.80 10*6/uL 4.2-5.4 [facility] Blood hemoglobin measurement (mass/volume)Ordered By: Loki Soria on 04-26-2023 Hemoglobin (Bld) [Mass/Vol] 14.1 g/dL 12.0-15.0 [facility] Blood lymphocytes/100 leukoc ytesOrdered By: Loki Soria on 04-26-2023 Lymphocytes/100 WBC (Bld) 13.6 % 19-41 [facility] Blood monocytes/100 leukocyt esOrdered By: Loki Soria on 04-26-2023 Monocytes/100 WBC (Bld) 6.2 % 0-10 [facility] Blood platelet mean volumeOr dered By: Loki Soria on 04-26-2023 Platelet mean volume (Bld) [Entitic vol] 11.5 fL 6.2-12.0 [facility] Determination of erythrocyte mean corpuscular volume (MCV)Ordered By: Loki Soria on 04-26-2023 MCV (RBC) [Entitic vol] 88.8 fL 81-99 [facility] Hematocrit Auto (Bld) [Volum e fraction]Ordered By: Loki Soria on 04-26-2023 Hematocrit (Bld) [Volume fraction] 42.6 % 37-47 [facility] Laboratory - Chemistry and C hemistry - challengeOrdered By: Loki Soria on 04-26-2023 CO2 [Moles/Vol] 20.0 mmol/L 21.0-32.0 [facility] Urea nitrogen/Creatinine [Mass ratio] 10.5 mg/mg 10-20 [facility] Laboratory - Hematology and Cell countsOrdered By: Loki Soria on 04-26-2023 Erythrocyte distribution width (RBC) [Entitic vol] 45.3 fL 35.1-43.9 [facility] Erythrocyte distribution width (RBC) [Ratio] 13.9 % 11.6-14.6 [facility] Immature granulocytes/100 WBC (Bld) 0.900 % 0.0-0.9 [facility] Comment on above: IG% - Immature Granu locytes (promyelocytes, myelocytes and metamyelocytes) > 1% indicates that a LEFT SHIFT is Present. MCH (RBC) [Entitic mass] 29.4 pg 27.0-32.0 [facility] Nucleated RBC/100 WBC (Bld) [Ratio] 0 % 0-5 [facility] MCHC Auto (RBC) [Mass/Vol]Or dered By: Loki Soria on 04-26-2023 MCHC (RBC) [Mass/Vol] 33.1 g/dL 32-36 [facility] No Panel InformationOrdered By: Loki Soria on 04-26-2023 Estimated Creatinine Clearance Calc 91.18 ml/min [facility] Estimated GFR (MDRD) Amer 89 mL/min >60 [facility] Comment on above: GFR Calc Estimated GFR (MDRD) Non-Af Amer 74 mL/min >60 [facility] Comment on above: Non- GFR Calc Thyroid Stimulating Hormone (TSH) 3.85 uIU/mL 0.358-3.74 [facility] Troponin I High Sensitivity 4 pg/mL 3.0-54.0 [facility] Comment on above: Please Note: New Ivone t Units and Gender Specific Reference Ranges. For more information see Policy Stat Procedure [facility] High Sensitivity Troponin (TNIH) and attachments. Platelets bldOrdered By: Ashley Soria on 04-26-2023 Platelets (Bld) [#/Vol] 158 10*3/uL 150-450 [facility] Serum or plasma calcium milli urement (mass/volume)Ordered By: Loki Soria on 04-26-2023 Calcium [Mass/Vol] 9.2 mg/dL 8.5-10.1 [facility] Serum or plasma creatinine m easurement (mass/volume)Ordered By: Loki Soria on 04-26-2023 Creatinine [Mass/Vol] 0.96 mg/dL 0.55-1.02 [facility] Comment on above: The validity of the calculated GFR & GFRAA in patients over 70 years has not been determined. Clinical correlation is essential. Serum or plasma urea nitroge n measurement (mass/volume)Ordered By: Loki Soria on 04-26-2023 Urea nitrogen [Mass/Vol] 10 mg/dL 7-18 [facility] Thin prep Papanicolaou smear with manual screeningOrdered By: Loki Soria on 04-26-2023 Thin prep Papanicolaou smear with manual screening 9 5-15 [facility] Absolute lymphocyte countOrd ered By: Greg Leslieradha on 04-23-2023 Lymphocytes Auto (Unsp spec) [#/Vol] 1.93 10*3/uL 0.83-4.51 [facility] Basophil percentageOrdered B y: Greg Philip on 04-23-2023 Basophil percentage 5-10 SEEN /hpf 0-5 [facility] Basophils/100 WBC (Bld) 0.3 % 0-1 [facility] Bilirubin [Mass/Vol] 0.30 mg/dL 0.20-1.00 [facility] Comment on above: For patients on eltr ombopag therapy, use of Dimension [facility] TBIL is not recommended. Chloride [Moles/Vol] 114 mmol/L 98-107 [facility] Eosinophils/100 WBC (Bld) 0.6 % 0-5 [facility] Glucose [Mass/Vol] 60 mg/dL 74-106 [facility] Neutrophils (Bld) [#/Vol] 10.3 10*3/uL 2.0-7.7 [facility] Neutrophils/100 WBC (Bld) 77.2 % 47-70 [facility] Potassium [Moles/Vol] 3.3 mmol/L 3.5-5.1 [facility] Protein [Mass/Vol] 6.3 g/dL 6.4-8.2 [facility] Sodium [Moles/Vol] 143 mmol/L 136-145 [facility] WBC (Bld) [#/Vol] 13.4 10*3/uL 4.4-11.0 [facility] Beta hCG serum qualOrdered B y: Greg Philip on 04-23-2023 Beta HCG ( test) Ql Negative [facility] Bilirubin Test strip Ql (U)O rdered By: Greg Philip on 04-23-2023 Bilirubin Ql (U) Negative Negative [facility] Blood erythrocytes count (nu mber/volume)Ordered By: Greg Philip on 04-23-2023 RBC (Bld) [#/Vol] 4.34 10*6/uL 4.2-5.4 [facility] Blood hemoglobin measurement (mass/volume)Ordered By: Greg Philip on 04-23-2023 Hemoglobin (Bld) [Mass/Vol] 13.0 g/dL 12.0-15.0 [facility] Blood lymphocytes/100 leukoc ytesOrdered By: Greg Philip on 04-23-2023 Lymphocytes/100 WBC (Bld) 14.5 % 19-41 [facility] Blood monocytes/100 leukocyt esOrdered By: Greg Philip on 04-23-2023 Monocytes/100 WBC (Bld) 6.7 % 0-10 [facility] Blood platelet mean volumeOr dered By: Greg Philip on 04-23-2023 Platelet mean volume (Bld) [Entitic vol] 12.7 fL 6.2-12.0 [facility] Determination of erythrocyte mean corpuscular volume (MCV)Ordered By: Greg Philip on 04-23-2023 MCV (RBC) [Entitic vol] 91.7 fL 81-99 [facility] Glucose Glucometer (dC) [M ass/Vol]Ordered By: Greg Philpi on 04-23-2023 Glucose [Mass/Vol] 108 mg/dL 74-106 [facility] Comment on above: MANAGEMENT OF PATIEN T CARE PER NURSING PROTOCOL Hematocrit Auto (Bld) [Volum e fraction]Ordered By: Greg Philip on 04-23-2023 Hematocrit (Bld) [Volume fraction] 39.8 % 37-47 [facility] INR in Blood by Coagulation assayOrdered By: Greg Philip on 04-23-2023 INR Coag (Bld) [Relative time] 1.1 {INR} [facility] Ketones Test strip Ql (U)Ord ered By: Greg Philip on 04-23-2023 Ketones Ql (U) Negative Negative [facility] Laboratory - Chemistry and C hemistry - challengeOrdered By: Greg Philip on 04-23-2023 ALP [Catalytic activity/Vol] 66 U/L 45-117 [facility] ALT [Catalytic activity/Vol] 31 U/L 13-56 [facility] CO2 [Moles/Vol] 25.0 mmol/L 21.0-32.0 [facility] Globulin (S) [Mass/Vol] 2.9 g/dL 2.2-4.2 [facility] Lipase [Catalytic activity/Vol] 19 U/L 13-75 [facility] Comment on above: Please note:LIPASE r evised reference range effective 22. New Lipase methodology. Expected to produce lower values than the previous assay method. NEW Reference Range: 13 - 75 U/L Urea nitrogen/Creatinine [Mass ratio] 23.1 mg/mg 10-20 [facility] Laboratory - CoagulationOrde red By: Greg Philip on 04-23-2023 aPTT Coag (Bld) [Time] 34.5 s 24.1-36.2 [facility] PT Coag (PPP) [Time] 14.4 s 11.7-14.9 [facility] Laboratory - Hematology and Cell countsOrdered By: Greg Philip on 04-23-2023 Erythrocyte distribution width (RBC) [Entitic vol] 47.8 fL 35.1-43.9 [facility] Erythrocyte distribution width (RBC) [Ratio] 14.1 % 11.6-14.6 [facility] Immature granulocytes/100 WBC (Bld) 0.700 % 0.0-0.9 [facility] Comment on above: IG% - Immature Granu locytes (promyelocytes, myelocytes and metamyelocytes) > 1% indicates that a LEFT SHIFT is Present. MCH (RBC) [Entitic mass] 30.0 pg 27.0-32.0 [facility] Nucleated RBC/100 WBC (Bld) [Ratio] 0 % 0-5 [facility] MCHC Auto (RBC) [Mass/Vol]Or dered By: Greg Philip on 04-23-2023 MCHC (RBC) [Mass/Vol] 32.7 g/dL 32-36 [facility] Mucus LM Ql (Urine sed)Order ed By: Greg Philip on 04-23-2023 Mucus Ql (Urine sed) 0 SEEN /hpf [facility] Nitrite Test strip Ql (U)Ord ered By: Greg Philip on 04-23-2023 Nitrite Ql (U) Negative Negative [facility] No Panel InformationOrdered By: Greg Philip on 04-23-2023 Estimated Creatinine Clearance Calc 156.31 ml/min [facility] Estimated GFR (MDRD) Amer 164 mL/min >60 [facility] Comment on above: GFR Calc Estimated GFR (MDRD) Non-Af Amer 135 mL/min >60 [facility] Comment on above: Non- GFR Calc Troponin I High Sensitivity 6 pg/mL 3.0-54.0 [facility] Comment on above: Please Note: New Ivone t Units and Gender Specific Reference Ranges. For more information see Policy Stat Procedure [facility] High Sensitivity Troponin (TNIH) and attachments. Platelets bldOrdered By: Allyn Philip on 04-23-2023 Platelets (Bld) [#/Vol] 149 10*3/uL 150-450 [facility] Protein Test strip Ql (U)Ord ered By: Greg Philip on 04-23-2023 Protein Ql (U) Negative Negative [facility] Serum or plasma acetone milli urement (mass/volume)Ordered By: Greg Philip on 04-23-2023 Acetone [Mass/Vol] Negative NEG [facility] Serum or plasma albumin milli urement (mass/volume)Ordered By: Greg Philip on 04-23-2023 Albumin [Mass/Vol] 3.4 g/dL 3.2-5.0 [facility] Serum or plasma albumin/glob ulin mass ratioOrdered By: Greg Philip on 04-23-2023 Albumin/Globulin [Mass ratio] 1.2 {ratio} 0.9-2.4 [facility] Serum or plasma calcium milli urement (mass/volume)Ordered By: Greg Philip on 04-23-2023 Calcium [Mass/Vol] 8.6 mg/dL 8.5-10.1 [facility] Serum or plasma creatinine m easurement (mass/volume)Ordered By: Greg Philip on 04-23-2023 Creatinine [Mass/Vol] 0.56 mg/dL 0.55-1.02 [facility] Comment on above: The validity of the calculated GFR & GFRAA in patients over 70 years has not been determined. Clinical correlation is essential. Serum or plasma urea nitroge n measurement (mass/volume)Ordered By: Greg Philip on 04-23-2023 Urea nitrogen [Mass/Vol] 13 mg/dL 7-18 [facility] Squamous epithelial cells de tection in urine sediment by light microscopyOrdered By: Greg Philip on 04-23-2023 Epithelial cells.squamous LM Ql (Urine sed) 0 SEEN /hpf 5-10 [facility] Thin prep Papanicolaou smear with manual screeningOrdered By: Greg Philip on 04-23-2023 Thin prep Papanicolaou smear with manual screening 13 U/L 15-37 [facility] Thin prep Papanicolaou smear with manual screening 4 5-15 [facility] Urine blood detectionOrdered By: Greg Philip on 04-23-2023 RBC Ql (U) Negative Negative [facility] RBC Ql (U) 0 SEEN /hpf 0-5 [facility] Urine clarityOrdered By: Allyn Philip on 04-23-2023 Clarity (U) Clear Clear [facility] Urine color determinationOrd ered By: Greg Philip on 04-23-2023 Color (U) Yellow Yellow [facility] Urine glucose detectionOrder ed By: Greg Philip on 04-23-2023 Glucose Ql (U) 50 mg/dl Normal [facility] Urine leukocyte esterase det ection by dipstickOrdered By: Greg Philip on 04-23-2023 Leukocyte esterase Test strip Ql (U) 500 /ul Negative [facility] Urine pHOrdered By: Greg sun on 04-23-2023 pH (U) 8.0 [pH] 5.0 - 8.0 [facility] Urine sediment bacteria coun t by microscopy (number/high power field)Ordered By: Greg Philip on 04-23-2023 Bacteria LM.HPF (Urine sed) [#/Area] 1 /[HPF] None Seen [facility] Urine specific gravity measu rementOrdered By: Greg Philip on 04-23-2023 Specific gravity (U) [Rel density] 1.015 1.002-1.030 [facility] Urobilinogen Auto test strip Ql (U)Ordered By: Greg Philip on 04-23-2023 Urobilinogen Ql (U) Normal mg/dl Normal [facility] CBC W Auto Differential pane l (Bld)on 04-06-2023 Basophils (Bld) [#/Vol] 0.05 10*3/uL Normal <0.11 [facility] Comment on above: Order Comment: Speci men Type: BLOOD SPECIMEN Ordering Facility: [facility] Address: [address] [place] [address] Performed By: #### 3 1201-7, 5195-3, 36095-7, SYPH #### [facility] CLIA [id number] [address] [place] [address] [place] Basophils/100 WBC (Bld) 0.4 % Normal [facility] Comment on above: Order Comment: Speci men Type: BLOOD SPECIMEN Ordering Facility: [facility] Address: [address] [place] [address] Performed By: #### 3 1201-7, 5194-3, 90285-6, SYPH #### [facility] CLIA [id number] [address] [place] [address] [place] Differential cell count method Nom (Bld) Auto Normal [facility] Comment on above: Order Comment: Speci men Type: BLOOD SPECIMEN Ordering Facility: [facility] Address: [address] [place] [address] Performed By: #### 3 1201-7, 5-3, 16937-5, SYPH #### [facility] CLIA [id number] [address] [place] [address] [place] Eosinophils (Bld) [#/Vol] 0.03 10*3/uL Normal <0.46 [facility] Comment on above: Order Comment: Speci men Type: BLOOD SPECIMEN Ordering Facility: [facility] Address: [address] [place] [address] Performed By: #### 3 1201-7, 5195-3, 15979-0, SYPH #### [facility] CLIA [id number] [address] [place] [address] [place] Eosinophils/100 WBC (Bld) 0.2 % Normal [facility] Comment on above: Order Comment: Speci men Type: BLOOD SPECIMEN Ordering Facility: [facility] Address: [address] [place] [address] Performed By: #### 3 1201-7, 5-3, 59917-8, SYPH #### [facility] CLIA [id number] [address] [place] [address] [place] Erythrocyte distribution width (RBC) [Ratio] 13.9 % Normal 11.5-15.0 [facility] Comment on above: Order Comment: Speci men Type: BLOOD SPECIMEN Ordering Facility: [facility] Address: [address] [place] [address] Performed By: #### 3 1201-7, 5-3, 69732-9, SYPH #### [facility] CLIA [id number] [address] [place] [address] [place] Hematocrit (Bld) [Volume fraction] 43.8 % Normal 36.0-46.0 [facility] Comment on above: Order Comment: Speci men Type: BLOOD SPECIMEN Ordering Facility: [facility] Address: [address] [place] [address] Performed By: #### 3 1201-7, 5-3, 79579-0, SYPH #### [facility] CLIA [id number] [address] [place] [address] [place] Hemoglobin (Bld) [Mass/Vol] 14.4 g/dL Normal 11.5-15.5 [facility] Comment on above: Order Comment: Speci men Type: BLOOD SPECIMEN Ordering Facility: [facility] Address: [address] [place] [address] Performed By: #### 3 1201-7, 5-3, 88934-0, SYPH #### [facility] CLIA [id number] [address] [place] [address] [place] Immature granulocytes (Bld) [#/Vol] 0.11 10*3/uL High <0.10 [facility] Comment on above: Order Comment: Speci men Type: BLOOD SPECIMEN Ordering Facility: [facility] Address: [address] [place] [place] [address] Performed By: #### 3 1201-7, 5195-3, 32254-8, SYPH #### [facility] CLIA [id number] [address] [place] [address] [place] Immature granulocytes/100 WBC (Bld) 0.8 % Normal [facility] Comment on above: Order Comment: Speci men Type: BLOOD SPECIMEN Ordering Facility: [facility] Address: [address] [place] [place] [address] Performed By: #### 3 1201-7, 5-3, 26455-6, SYPH #### [facility] CLIA [id number] [address] [place] [address] [place] Lymphocytes (Bld) [#/Vol] 2.59 10*3/uL Normal 1.00-4.00 [facility] Comment on above: Order Comment: Speci men Type: BLOOD SPECIMEN Ordering Facility: [facility] Address: [address] [place] [address] Performed By: #### 3 1201-7, 5194-3, , SYPH #### [facility] CLIA [id number] [address] [place] [address] [place] Lymphocytes/100 WBC (Bld) 19.8 % Normal [facility] Comment on above: Order Comment: Speci men Type: BLOOD SPECIMEN Ordering Facility: [facility] Address: [address] [place] [place] [address] Performed By: #### 3 1201-7, 5-3, 84324-0, SYPH #### [facility] CLIA [id number] [address] [place] [address] [place] MCH (RBC) [Entitic mass] 29.1 pg Normal 26.0-34.0 [facility] Comment on above: Order Comment: Speci men Type: BLOOD SPECIMEN Ordering Facility: [facility] Address: [address] [place] [address] Performed By: #### 3 1201-7, 5195-3, 85411-9, SYPH #### [facility] CLIA [id number] [address] [place] [address] [place] MCHC (RBC) [Mass/Vol] 32.9 g/dL Normal 30.5-36.0 [facility] Comment on above: Order Comment: Speci men Type: BLOOD SPECIMEN Ordering Facility: [facility] Address: [address] [place] [place] [address] Performed By: #### 3 1201-7, 5195-3, 58638-0, SYPH #### [facility] CLIA [id number] [address] [place] [address] [place] MCV (RBC) [Entitic vol] 88.5 fL Normal 80.0-100.0 [facility] Comment on above: Order Comment: Speci men Type: BLOOD SPECIMEN Ordering Facility: [facility] Address: [address] [place] [place] [address] Performed By: #### 3 1201-7, 5195-3, 76903-5, SYPH #### [facility] CLIA [id number] [address] [place] [address] [place] Monocytes (Bld) [#/Vol] 0.76 10*3/uL Normal <0.87 [facility] Comment on above: Order Comment: Speci men Type: BLOOD SPECIMEN Ordering Facility: [facility] Address: [address] [place] [place] [address] Performed By: #### 3 1201-7, 5195-3, 49275-3, SYPH #### [facility] CLIA [id number] [address] [place] [address] [place] Monocytes/100 WBC (Bld) 5.8 % Normal [facility] Comment on above: Order Comment: Speci men Type: BLOOD SPECIMEN Ordering Facility: [facility] Address: [address] [place] [place] [address] Performed By: #### 3 1201-7, 5195-3, 40741-8, SYPH #### [facility] CLIA [id number] [address] [place] [address] [place] Neutrophils (Bld) [#/Vol] 9.56 10*3/uL High 1.45-7.50 [facility] Comment on above: Order Comment: Speci men Type: BLOOD SPECIMEN Ordering Facility: [facility] Address: [address] [place] [address] Performed By: #### 3 1201-7, 5195-3, 23709-0, SYPH #### [facility] CLIA [id number] [address] [place] [address] [place] Neutrophils/100 WBC (Bld) 73.0 % Normal [facility] Comment on above: Order Comment: Speci men Type: BLOOD SPECIMEN Ordering Facility: [facility] Address: [address] [place] [address] Performed By: #### 3 1201-7, 5-3, 03207-1, SYPH #### [facility] CLIA [id number] [address] [place] [address] [place] Nucleated RBC (Bld) [#/Vol] 10*3/uL Normal <0.01 [facility] Comment on above: Order Comment: Speci men Type: BLOOD SPECIMEN Ordering Facility: [facility] Address: [address] [place] [address] Performed By: #### 3 1201-7, 5-3, 83381-8, SYPH #### [facility] CLIA [id number] [address] [place] [address] [place] Nucleated RBC/100 WBC (Bld) [Ratio] 0.0 /[address] [facility] Comment on above: Order Comment: Speci men Type: BLOOD SPECIMEN Ordering Facility: [facility] Address: [address] [place] [address] Performed By: #### 3 1201-7, 5195-3, 81527-2, SYPH #### [facility] CLIA [id number] [address] [place] [address] [place] Platelet mean volume (Bld) [Entitic vol] 12.0 fL Normal 9.0-12.7 [facility] Comment on above: Order Comment: Speci men Type: BLOOD SPECIMEN Ordering Facility: [facility] Address: [address] [place] [address] Performed By: #### 3 1201-7, 5195-3, 76246-4, SYPH #### [facility] CLIA [id number] [address] [place] [address] [place] Platelets (Bld) [#/Vol] 180 10*3/uL Normal 150-400 [facility] Comment on above: Order Comment: Speci men Type: BLOOD SPECIMEN Ordering Facility: [facility] Address: [address] [place] [address] Performed By: #### 3 1201-7, 5195-3, 48035-2, SYPH #### [facility] CLIA [id number] [address] [place] [address] [place] RBC (Bld) [#/Vol] 4.95 10*6/uL Normal 3.90-5.20 [facility] Comment on above: Order Comment: Speci men Type: BLOOD SPECIMEN Ordering Facility: [facility] Address: [address] [place] [address] Performed By: #### 3 1201-7, 5195-3, 79400-4, SYPH #### [facility] CLIA [id number] [address] [place], [place] [address] [place] WBC (Bld) [#/Vol] 13.10 10*3/uL High 3.70-11.00 [facility] Comment on above: Order Comment: Speci men Type: BLOOD SPECIMEN Ordering Facility: [facility] Address: [address] [place] [address] Performed By: #### 3 1201-7, 5195-3, 26173-2, SYPH #### [facility] CLIA [id number] [address] [place] [address], [place] [address] [place] CT ABD/PEL W IVCONon 023 CT ABD/PEL W IVCON * * *Final Report* * * DATE OF EXAM: Apr 06 2023 12:56AM [facility] 0530 - CT ABD/PEL W IVCON / [...] Likely right lower quadrant ventral injection sites/granuloma. Educational Manager (topogram) images: No additional findings. IMPRESSION: 1. No acute abnormality. Drawbridge Tender: PSCB Transcribe Date/Time: Apr 06 2023 1:25A Dictated by : LIANG SLAUGHTER MD This examination was interpreted and the report reviewed and electronically signed by: LIANG SLAUGHTER MD on Apr 06 2023 1:30AM EST [id number] Normal [facility] Comprehensive metabolic 2000 panelon 04-06-2023 Albumin [Mass/Vol] 4.2 g/dL Normal 3.2-5.0 [facility] Comment on above: Order Comment: Speci men Type: BLOOD SPECIMEN Ordering Facility: [facility] Address: [address] [place] [address] Performed By: #### 3 1201-7, 5195-3, 43399-6, SYPH #### [facility] CLIA [id number] [address] [place] [address] [place] ALP [Catalytic activity/Vol] 85 U/L Normal 45-117 [facility] Comment on above: Order Comment: Speci men Type: BLOOD SPECIMEN Ordering Facility: [facility] Address: [address] [place] [address] Performed By: #### 3 1201-7, 5195-3, 41092-9, SYPH #### [facility] CLIA [id number] [address] [place] [address] [place] ALT [Catalytic activity/Vol] 87 U/L High 13-61 [facility] Comment on above: Order Comment: Speci men Type: BLOOD SPECIMEN Ordering Facility: [facility] Address: [address] [place] [address] Result Comment: Resu lts may be falsely depressed after the administration of Sulfasalazine and/or Sulfapyridine. Performed By: #### 3 1201-7, 5195-3, 44206-6, SYPH #### [facility] CLIA [id number] [address] [place] [address] [place] Anion gap [Moles/Vol] 8 mmol/L Normal 5-16 [facility] Comment on above: Order Comment: Speci men Type: BLOOD SPECIMEN Ordering Facility: [facility] Address: [address] [place] [address] Performed By: #### 3 1201-7, 5195-3, 68693-9, SYPH #### [facility] CLIA [id number] [address] [place] [address] [place] AST [Catalytic activity/Vol] 60 U/L High 8-34 [facility] Comment on above: Order Comment: Speci men Type: BLOOD SPECIMEN Ordering Facility: [facility] Address: [address] Result Comment: Resu lts may be falsely depressed after the administration of Sulfasalazine and/or Sulfapyridine. Performed By: #### 3 1201-7, 5195-3, 36947-0, SYPH #### [facility] CLIA [id number] [address] [place] [address] [place] Bilirubin [Mass/Vol] 0.7 mg/dL Normal 0.2-1.0 [facility] Comment on above: Order Comment: Speci men Type: BLOOD SPECIMEN Ordering Facility: [facility] Address: [address] [place] [place] [address] Performed By: #### 3 1201-7, 5-3, , SYPH #### [facility] CLIA [id number] [address] [place] [address] [place] Calcium [Mass/Vol] 9.6 mg/dL Normal 8.5-10.5 [facility] Comment on above: Order Comment: Speci men Type: BLOOD SPECIMEN Ordering Facility: [facility] Address: [address] [place] [address] Performed By: #### 3 1201-7, 5194-3, , SYPH #### [facility] CLIA [id number] [address] [place] [address] [place] Chloride [Moles/Vol] 107 mmol/L Normal 98-107 [facility] Comment on above: Order Comment: Speci men Type: BLOOD SPECIMEN Ordering Facility: [facility] Address: [address] [place] [place] [address] Performed By: #### 3 1201-7, 5195-3, 73447-3, SYPH #### [facility] CLIA [id number] [address] [place] [address] [place] CO2 [Moles/Vol] 26 mmol/L Normal 21-32 [facility] Comment on above: Order Comment: Speci men Type: BLOOD SPECIMEN Ordering Facility: [facility] Address: [address] [place], [place] [address] Performed By: #### 3 1201-7, 5195-3, 04062-3, SYPH #### [facility] CLIA [id number] [address] [place] [address] [place] Creatinine [Mass/Vol] 0.69 mg/dL Normal 0.51-0.95 [facility] Comment on above: Order Comment: Speclatasha russ Type: BLOOD SPECIMEN Ordering Facility: [facility] Address: [address] Result Comment: Clepoatra ents receiving either N-Acetylcysteine (NAC) or Metamizole prior to venipuncture, may have falsely depressed results. Performed By: #### 3 1201-7, 5195-3, 57945-3, SYPH #### [facility] CLIA [id number] [address] [place] [address] STATES [place] [facility] ESTIMATED GLOMERULAR FILTRATION RATE 121 mL/min/1.73m??? Normal >=60 [facility] Comment on above: Order Comment: Belindai jeb Type: BLOOD SPECIMEN Ordering Facility: [facility] Address: [address] [place] [place] [address] Result Comment: Janett mated Glomerular Filtration Rate [...] GFR. Performed By: #### 3 1201-7, 5195-3, 14018-2, SYPH #### [facility] CLIA [id number] [address] [place] [address] [place] Glucose [Mass/Vol] 79 mg/dL Normal 70-100 [facility] Comment on above: Order Comment: Jon russ Type: BLOOD SPECIMEN Ordering Facility: [facility] Address: [address] [place] [place] [address] Result Comment: The [place] [employer] (ADA) provides guidance for cutoff [...] Standards of Medical Care in Diabetes 2016, [place] [employer]. Diabetes Care. 2016.39(Suppl 1). Results may be falsely elevated after the administration of Sulfapyridine. Results may be falsely depressed after the administration of Sulfasalazine. Performed By: #### 3 1201-7, 5195-3, 61644-9, SYPH #### [facility] CLIA [id number] [address] [place] [address] [place] Potassium [Moles/Vol] 4.0 mmol/L Normal 3.5-5.1 [facility] Comment on above: Order Comment: Jon russ Type: BLOOD SPECIMEN Ordering Facility: [facility] Address: [address] [place] [address] Performed By: #### 3 1201-7, 5195-3, 62440-9, SYPH #### [facility] CLIA [id number] [address] [place] [address] [place] Protein [Mass/Vol] 7.2 g/dL Normal 6.0-8.5 [facility] Comment on above: Order Comment: Jon russ Type: BLOOD SPECIMEN Ordering Facility: [facility] Address: [address] [id number] Performed By: #### 3 1201-7, 5195-3, 23270-6, SYPH #### [facility] CLIA [id number] [address] [place] [address] [place] Sodium [Moles/Vol] 141 mmol/L Normal 136-145 [facility] Comment on above: Order Comment: Jon russ Type: BLOOD SPECIMEN Ordering Facility: [facility] Address: [address] [facility] [place] [address] Performed By: #### 3 1201-7, 5195-3, 47392-9, SYPH #### [facility] CLIA [id number] [address] [place], [place] [address] [facility] Urea nitrogen [Mass/Vol] 15 mg/dL Normal 7- [facility] Comment on above: Order Comment: Speci men Type: BLOOD SPECIMEN Ordering Facility: [facility] Address: [place] [address] Performed By: #### 3 1201-7, 5195-3, 27547-0, SYPH #### [facility] CLIA [id number] [address] [place], [place] [address] [facility] ED PROV NOTEon 04-06-2023 ED PROV NOTE HNO ID: [id number] Author: Greg Talbot DO Service: Emergency Medicine [...] GREG TALBOT 04/06/23 0236 GREG TALBOT 04/06/23253 [facility] ED PROV NOTE HNO ID: [id number] Author: Jorge Alberto Nj MD Service: ? [...] be ki (more content not included)... Normal [facility] ED Triage Noteon 04-06-2023 ED Triage Note HNO ID: [id number] Author: Merced Mora PA-C Service: ? Author Type: Physician Cut Roll Machine Operator Type: ED Triage Notes Filed: 04/05/2023 10:31 [...] CMP Urinalysis SIGNATURE: Merced Mora PA-C Normal [facility] HCG QUAL BLDon 04-06-2023 HCG, QUALITATIVE Negative Normal Negative [facility] Comment on above: Order Comment: Speci men Type: BLOOD SPECIMEN Ordering Facility: [facility] Address: [place] [address] Performed By: #### 3 1201-7, 5195-3, 58573-9, SYPH #### [facility] CLIA [id number] [facility] [place] [address] [place] Urinalysis complete panel (U )on 04-06-2023 Bacteria LM.HPF (Urine sed) [#/Area] Rare Abnormal None Seen [facility] Comment on above: Order Comment: Speci men Type: BLOOD SPECIMEN Ordering Facility: [facility] Address: [address] [address] Performed By: #### 3 1201-7, 5195-3, 47480-2, SYPH #### [facility] CLIA [id number] [address] [place] [address] [place] Bilirubin Ql (U) Negative Normal Negative [facility] Comment on above: Order Comment: Speci men Type: BLOOD SPECIMEN Ordering Facility: [facility] Address: [address] [place] [address] Performed By: #### 3 1201-7, 5-3, 70588-0, SYPH #### [facility] CLIA [id number] [address] [place] [address] [place] Clarity (Unsp spec) Clear Normal Clear [facility] Comment on above: Order Comment: Speci men Type: BLOOD SPECIMEN Ordering Facility: [facility] Address: [address] [place] [address] Performed By: #### 3 1201-7, 5-3, 60569-6, SYPH #### [facility] CLIA [id number] [address] [place] [address] [place] Color (U) Yellow Normal Yellow [facility] Comment on above: Order Comment: Speci men Type: BLOOD SPECIMEN Ordering Facility: [facility] Address: [address] [address] Performed By: #### 3 1201-7, 5195-3, 80539-6, SYPH #### [facility] CLIA [id number] [address] [place] [address] OF [place] Epithelial cells LM.HPF (Urine sed) [#/Area] Many Normal [facility] Comment on above: Order Comment: Speci men Type: BLOOD SPECIMEN Ordering Facility: [facility] Address: [address] [place] [address] Performed By: #### 3 1201-7, 5-3, 02412-1, SYPH #### [facility] CLIA [id number] [address] [place] [address] OF [place] Glucose Test strip (U) [Mass/Vol] Negative Normal Negative [facility] Comment on above: Order Comment: Speci men Type: BLOOD SPECIMEN Ordering Facility: [facility] Address: [address] [place] [address] Performed By: #### 3 1201-7, 5-3, 16535-7, SYPH #### [facility] CLIA [id number] [address] [place] [address] [place] Hemoglobin Ql (U) Negative Normal Negative [facility] Comment on above: Order Comment: Speci men Type: BLOOD SPECIMEN Ordering Facility: [facility] Address: [address] [place] [address] Performed By: #### 3 1201-7, 3, 09696-4, SYPH #### [facility] CLIA [id number] [address] [place] [address] [place] Ketones Ql (U) Trace Abnormal Negative [facility] Comment on above: Order Comment: Speci men Type: BLOOD SPECIMEN Ordering Facility: [facility] Address: [address] [place] [address] Performed By: #### 3 1201-7, 5194-3, 33835-7, SYPH #### [facility] CLIA [id number] [address] [place] [address] [place] Leukocyte esterase Test strip Ql (U) 1+ Abnormal Negative [facility] Comment on above: Order Comment: Speci men Type: BLOOD SPECIMEN Ordering Facility: [facility] Address: [address] [place] [address] Performed By: #### 3 1201-7, 5-3, 33999-1, SYPH #### [facility] CLIA [id number] [address] [place] [address] [place] Nitrite Ql (U) Negative Normal Negative [facility] Comment on above: Order Comment: Speci men Type: BLOOD SPECIMEN Ordering Facility: [facility] Address: [address] [place] [address] Performed By: #### 3 1201-7, 5195-3, 42792-4, SYPH #### [facility] CLIA [id number] [address] [place] [address] [place] pH (U) 5.0 [pH] Normal 5.0-8.0 [facility] Comment on above: Order Comment: Speci men Type: BLOOD SPECIMEN Ordering Facility: [facility] Address: [address] [place] [address] Performed By: #### 3 1201-7, 5195-3, 61372-1, SYPH #### [facility] CLIA [id number] [address] [place] [address] [place] Protein (U) [Mass/Vol] Negative Normal Negative [facility] Comment on above: Order Comment: Speci men Type: BLOOD SPECIMEN Ordering Facility: [facility] Address: [address] [place] [address] Performed By: #### 3 1201-7, 53, , SYPH #### [facility] CLIA [id number] [address] [place] [address] [place] RBC LM.HPF (Urine sed) [#/Area] 3-5 /HPF Abnormal 0-3 /HPF [facility] Comment on above: Order Comment: Speci men Type: BLOOD SPECIMEN Ordering Facility: [facility] Address: [address] [place] [address] Performed By: #### 3 1201-7, 5195-3, 68006-1, SYPH #### [facility] CLIA [id number] [address] [place] [address] [place] Specific gravity (U) [Rel density] >1.030 High 1.005-1.030 [facility] Comment on above: Order Comment: Speci men Type: BLOOD SPECIMEN Ordering Facility: [facility] Address: [address] [place] [address] Performed By: #### 3 1201-7, 5195-3, 69725-9, SYPH #### [facility] CLIA [id number] [address] [place] [address] Urobilinogen Ql (U) Negative Normal Negative [facility] Comment on above: Order Comment: Speci men Type: BLOOD SPECIMEN Ordering Facility: [facility] Address: [address] [place], [place] [id number] Performed By: #### 3 1201-7, 5195-3, 88630-5, SYPH #### [facility] CLIA [id number] [address] [place] [address] [place] WBC LM.HPF (Urine sed) [#/Area] 6-10 /HPF Abnormal 0-5 /HPF [facility] Comment on above: Order Comment: Speci men Type: BLOOD SPECIMEN Ordering Facility: [facility] Address: [address] [place], [place] [id number] Performed By: #### 3 1201-7, 5195-3, 33356-2, SYPH #### [facility] CLIA [id number] [address] [place] [address] [place] ED NOTEon 04-05-2023 ED NOTE HNO ID: [id number] Author: Ten Mao RN Service: Nursing Author Type: Registered Nurse Type: ED Notes Filed: 04/05/2023 9:44 PM Note Text: PT presents to ED with c/o left hip pain, back pain and pelvic pain. Reports hip pain started first this morning. Pain now radiating into back and pelvic area. Endorses nausea. Normal [facility] Basic metabolic 2000 panelon 03-22-2023 Anion gap [Moles/Vol] 7 mmol/L Low 10 - 20 mmol/L [facility] Calcium [Mass/Vol] 8.0 mg/dL Low 8.4 - 10. 2 mg/dL [facility] Chloride [Moles/Vol] 110 mmol/L High 98 - 10 8 mmol/L [facility] Creatinine [Mass/Vol] 0.81 mg/dL 0.40 - 1.10 mg/dL [facility] GFR/1.73 sq M.predicted CKD-EPI (S/P/Bld) [Vol rate/Area] 102 - PINF [facility] Comment on above: Estimated GFR was ca lculated using the 2020 CKD-EPI creatinine equation. Glucose [Mass/Vol] 251 mg/dL High 65 - 99 mg/dL [facility] HCO3 [Moles/Vol] 26 mmol/L 21 - 32 mmol/L [facility] Interpretation and review of laboratory results Abnormal [facility] Potassium [Moles/Vol] 3.2 mmol/L Low 3.5 - 5.1 mmol/L [facility] Sodium [Moles/Vol] 140 mmol/L 135 - 145 mmol/L [facility] Urea nitrogen [Mass/Vol] 8 mg/dL 8 - 25 mg/dL [facility] Urea nitrogen/Creatinine [Mass ratio] 9.9 mg/mg Low 10.0 - 20.0 [facility] has implemented the eGFR calculation approach that does not have a coefficient for race that conforms to the NKF-ASN Task Force Recommendations. [facility] CBC Auto Differentialon 02-26 Basophils (Bld) [#/Vol] 0.02 10*3/uL [facility] Basophils/100 WBC (Bld) 0.2 % [facility] Eosinophils (Bld) [#/Vol] 0.04 10*3/uL [facility] Eosinophils/100 WBC (Bld) 0.4 % [facility] Erythrocyte distribution width (RBC) [Entitic vol] 13.9 % 11.6 - 14.8 % [facility] Hematocrit (Bld) [Volume fraction] 37.4 % 36.0 - 46.0 % [facility] Hemoglobin (Bld) [Mass/Vol] 12.4 g/dL 12.0 - 16.0 g/dL [facility] Immature granulocytes (Bld) [#/Vol] 0.07 10*3/uL [facility] Immature granulocytes/100 WBC (Bld) 0.70 % [facility] Comment on above: The IG parameter is the percentage of metamyelocytes, myelocytes and promyelocytes. An immature granulocyte count (IG) of 1% or more suggests the possibility of infection, an IG count of 3% is very likely related to an infection. Lymphocytes (Bld) [#/Vol] 2.55 10*3/uL [facility] Lymphocytes/100 WBC (Bld) 27.1 % [facility] MCH (RBC) [Entitic mass] 29.1 pg 26.0 - 34.0 pg [facility] MCHC (RBC) [Mass/Vol] 33.2 g/dL 31.0 - 37.0 g/dL [facility] MCV (RBC) [Entitic vol] 87.8 fL 80.0 - 100.0 fL [facility] Monocytes (Bld) [#/Vol] 0.57 10*3/uL [facility] Monocytes/100 WBC (Bld) 6.1 % [facility] Neutrophils (Bld) [#/Vol] 6.16 10*3/uL [facility] Neutrophils/100 WBC (Bld) 65.5 % [facility] Nucleated RBC (Bld) [#/Vol] 0.00 10*3/uL [facility] Nucleated RBC/100 WBC (Bld) [Ratio] 0.0 % [facility] Platelet mean volume (Bld) [Entitic vol] 11.8 fL 9.4 - 12.4 fL [facility] Platelets (Bld) [#/Vol] 165 10*3/uL [facility] RBC (Bld) [#/Vol] 4.26 10*6/uL [facility] WBC (Bld) [#/Vol] 9.41 10*3/uL [facility] Glucose (Bld) [Mass/Vol]on 0 03-22-2023 Glucose [Mass/Vol] 101 mg/dL High 65 - 99 mg/dL [facility] Interpretation and review of laboratory results Abnormal [facility] Glucose [Mass/Vol] 117 mg/dL High 65 - 99 mg/dL [facility] Interpretation and review of laboratory results Abnormal [facility] Glucose [Mass/Vol] 182 mg/dL High 65 - 99 mg/dL [facility] Interpretation and review of laboratory results Abnormal [facility] Glucose [Mass/Vol] 168 mg/dL High 65 - 99 mg/dL [facility] Interpretation and review of laboratory results Abnormal [facility] Glucose [Mass/Vol] 77 mg/dL 65 - 99 mg/dL [facility] Interpretation and review of laboratory results Normal [facility] Glucose [Mass/Vol] 42 mg/dL Low 65 - 99 mg/dL [facility] Interpretation and review of laboratory results Abnormal [facility] Magnesium Levelon 03-22-2023 Magnesium [Mass/Vol] 2.0 mg/dL 1.6 - 2 .4 mg/dL [facility] Magnesium [Mass/Vol]on 03-22 Interpretation and review of laboratory results Normal [facility] No Panel Informationon 03-22 [facility] Phosphate [Mass/Vol]on 03-22 Interpretation and review of laboratory results Abnormal [facility] Phosphoruson 03-22-2023 Phosphate [Mass/Vol] 2.4 mg/dL Low 2.7 - 4 .5 mg/dL [facility] CBC panel Auto (Bld)on 03-21 Erythrocyte distribution width (RBC) [Entitic vol] 14.0 % 11.6 - 14.8 % [facility] Hematocrit (Bld) [Volume fraction] 35.7 % Low 36.0 - 46.0 % [facility] Hemoglobin (Bld) [Mass/Vol] 11.7 g/dL Low 12.0 - 16.0 g/dL [facility] Interpretation and review of laboratory results Abnormal [facility] MCH (RBC) [Entitic mass] 29.2 pg 26.0 - 34.0 pg [facility] MCHC (RBC) [Mass/Vol] 32.8 g/dL 31.0 - 37.0 g/dL [facility] MCV (RBC) [Entitic vol] 89.0 fL 80.0 - 100.0 fL [facility] Nucleated RBC (Bld) [#/Vol] 0.00 10*3/uL [facility] Nucleated RBC/100 WBC (Bld) [Ratio] 0.0 % [facility] Platelet mean volume (Bld) [Entitic vol] 12.9 fL High 9.4 - 12.4 fL [facility] Platelets (Bld) [#/Vol] 169 10*3/uL [facility] RBC (Bld) [#/Vol] 4.01 10*6/uL [facility]alth WBC (Bld) [#/Vol] 20.82 10*3/uL High [facility] Comprehensive metabolic 2000 panelon 03-21-2023 Albumin [Mass/Vol] 3.3 g/dL 3.2 - 5.2 g/dL [facility] ALP [Catalytic activity/Vol] 71 U/L 40 - 140 U/L [facility] ALT [Catalytic activity/Vol] 20 U/L 14 - 65 U/L [facility] Anion gap [Moles/Vol] 16 mmol/L 10 - 20 mmol/L [facility] AST [Catalytic activity/Vol] 10 U/L 0 - 45 U/L [facility] Bilirubin [Mass/Vol] 0.8 mg/dL 0.0 - 1 .3 mg/dL [facility] Calcium [Mass/Vol] 8.4 mg/dL 8.4 - 10. 2 mg/dL [facility] Chloride [Moles/Vol] 111 mmol/L High 98 - 10 8 mmol/L [facility] Creatinine [Mass/Vol] 0.81 mg/dL 0.40 - 1.10 mg/dL [facility] GFR/1.73 sq M.predicted CKD-EPI (S/P/Bld) [Vol rate/Area] 102 - PINF [facility] Comment on above: Estimated GFR was ca lculated using the 2020 CKD-EPI creatinine equation. Glucose [Mass/Vol] 162 mg/dL High 65 - 99 mg/dL [facility] HCO3 [Moles/Vol] 18 mmol/L Low 21 - 32 mmol/L [facility] Interpretation and review of laboratory results Abnormal [facility] Potassium [Moles/Vol] 3.6 mmol/L 3.5 - 5.1 mmol/L [facility] Protein [Mass/Vol] 6.3 g/dL 6.0 - 8.0 g/dL [facility] Sodium [Moles/Vol] 141 mmol/L 135 - 145 mmol/L [facility] Urea nitrogen [Mass/Vol] 11 mg/dL 8 - 25 mg/dL [facility] Urea nitrogen/Creatinine [Mass ratio] 13.6 mg/mg 10.0 - 20.0 [facility] has implemented the eGFR calculation approach that does not have a coefficient for race that conforms to the NKF-ASN Task Force Recommendations. [facility] Glucose (Bld) [Mass/Vol]on 0 03-21-2023 Glucose [Mass/Vol] 179 mg/dL High 65 - 99 mg/dL [facility] Interpretation and review of laboratory results Abnormal [facility] Glucose [Mass/Vol] 102 mg/dL High 65 - 99 [facility] Interpretation and review of laboratory results Abnormal [facility] Glucose [Mass/Vol] 80 mg/dL 65 - 99 mg/dL [facility] Interpretation and review of laboratory results Normal [facility] Glucose [Mass/Vol] 113 mg/dL High 65 - 99 mg/dL [facility] Interpretation and review of laboratory results Abnormal [facility] Magnesiumon 03-21-2023 Magnesium [Mass/Vol] 2.4 mg/dL 1.6 - 2 .4 mg/dL [facility] Magnesium [Mass/Vol]on 03-21 Interpretation and review of laboratory results Normal [facility] No Panel Informationon 03-21 [facility] Phosphate [Mass/Vol]on 03-21 Interpretation and review of laboratory results Normal [facility] Phosphoruson 03-21-2023 Phosphate [Mass/Vol] 2.7 mg/dL 2.7 - 4 .5 mg/dL [facility] Basic metabolic 1997 panelon 03-20-2023 Anion gap [Moles/Vol] 12 mmol/L 10 - 20 mmol/L [facility] Chloride [Moles/Vol] 108 mmol/L 98 - 10 8 mmol/L [facility] Creatinine [Mass/Vol] 0.98 mg/dL 0.40 - 1.10 mg/dL [facility] GFR/1.73 sq M.predicted CKD-EPI (S/P/Bld) [Vol rate/Area] 81 - PINF [facility] Comment on above: Estimated GFR was ca lculated using the 2020 CKD-EPI creatinine equation. Glucose [Mass/Vol] 247 mg/dL High 65 - 99 mg/dL [facility] HCO3 [Moles/Vol] 24 mmol/L 21 - 32 mmol/L [facility] Potassium [Moles/Vol] 3.5 mmol/L 3.5 - 5.1 mmol/L [facility] Sodium [Moles/Vol] 140 mmol/L 135 - 145 mmol/L [facility] Urea nitrogen [Mass/Vol] 15 mg/dL 8 - 25 mg/dL [facility] Urea nitrogen/Creatinine [Mass ratio] 15.3 mg/mg 10.0 - 20.0 [facility] has implemented the eGFR calculation approach that does not have a coefficient for race that conforms to the NKF-ASN Task Force Recommendations. [facility] Basic metabolic 1999 panelon 03-20-2023 Anion gap [Moles/Vol] 13 mmol/L 10 - 20 mmol/L [facility] Calcium [Mass/Vol] 8.1 mg/dL Low 8.4 - 10. 2 mg/dL [facility] Chloride [Moles/Vol] 106 mmol/L 98 - 10 8 mmol/L [facility] Creatinine [Mass/Vol] 0.86 mg/dL 0.40 - 1.10 mg/dL [facility] GFR/1.73 sq M.predicted CKD-EPI (S/P/Bld) [Vol rate/Area] 95 - PINF [facility] Comment on above: Estimated GFR was ca lculated using the 2020 CKD-EPI creatinine equation. Glucose [Mass/Vol] 316 mg/dL High 65 - 99 mg/dL [facility] HCO3 [Moles/Vol] 21 mmol/L 21 - 32 mmol/L [facility] Interpretation and review of laboratory results Abnormal [facility] Potassium [Moles/Vol] 4.0 mmol/L 3.5 - 5.1 mmol/L [facility] Sodium [Moles/Vol] 136 mmol/L 135 - 145 mmol/L [facility] Urea nitrogen [Mass/Vol] 12 mg/dL 8 - 25 mg/dL [facility] Urea nitrogen/Creatinine [Mass ratio] 14.0 mg/mg 10.0 - 20.0 [facility] has implemented the eGFR calculation approach that does not have a coefficient for race that conforms to the NKF-ASN Task Force Recommendations. [facility] Beta HCG ( test) Ql on 03-20-2023 Interpretation and review of laboratory results Normal [facility] Negative: The result is less than or equal to 5 mIU/mL of HCG. [facility] Beta hydroxybutyrate [Moles/ Vol]on 03-20-2023 Interpretation and review of laboratory results Abnormal [facility] Beta-Hydroxybutyrateon 03-20 Beta hydroxybutyrate [Moles/Vol] 1.8 mmol/L High 0.0 - 0.3 mmol/L [facility] CBC Auto Differentialon 02-26 Basophils (Bld) [#/Vol] 0.04 10*3/uL [facility] Basophils/100 WBC (Bld) 0.4 % [facility] Eosinophils (Bld) [#/Vol] 0.03 10*3/uL [facility] Eosinophils/100 WBC (Bld) 0.3 % [facility] Erythrocyte distribution width (RBC) [Entitic vol] 13.7 % 11.6 - 14.8 % [facility] Hematocrit (Bld) [Volume fraction] 38.9 % 36.0 - 46.0 % [facility] Hemoglobin (Bld) [Mass/Vol] 13.0 g/dL 12.0 - 16.0 g/dL [facility] Immature granulocytes (Bld) [#/Vol] 0.08 10*3/uL [facility] Immature granulocytes/100 WBC (Bld) 0.80 % [facility] Comment on above: The IG parameter is the percentage of metamyelocytes, myelocytes and promyelocytes. An immature granulocyte count (IG) of 1% or more suggests the possibility of infection, an IG count of 3% is very likely related to an infection. Interpretation and review of laboratory results Abnormal [facility] Lymphocytes (Bld) [#/Vol] 2.45 10*3/uL [facility] Lymphocytes/100 WBC (Bld) 23.6 % [facility] MCH (RBC) [Entitic mass] 29.0 pg 26.0 - 34.0 pg [facility] MCHC (RBC) [Mass/Vol] 33.4 g/dL 31.0 - 37.0 g/dL [facility] MCV (RBC) [Entitic vol] 86.6 fL 80.0 - 100.0 fL [facility] Monocytes (Bld) [#/Vol] 0.62 10*3/uL [facility] Monocytes/100 WBC (Bld) 6.0 % [facility] Neutrophils (Bld) [#/Vol] 7.17 10*3/uL High [facility] Neutrophils/100 WBC (Bld) 68.9 % [facility] Nucleated RBC (Bld) [#/Vol] 0.00 10*3/uL [facility] Nucleated RBC/100 WBC (Bld) [Ratio] 0.0 % [facility] Platelet mean volume (Bld) [Entitic vol] 12.5 fL High 9.4 - 12.4 fL [facility] Platelets (Bld) [#/Vol] 160 10*3/uL [facility] RBC (Bld) [#/Vol] 4.49 10*6/uL [facility]alth WBC (Bld) [#/Vol] 10.39 10*3/uL [facility] CT ANGIOGRAM CHEST ABDOMEN P [facility] 03-20-2023 CT ANGIOGRAM CHEST ABDOMEN PELVIS EXAMINATION: [...] Note made of prior appendectomy surgical clips. [employer] Workstation ID: [id number] Dictated by: DAVID MOURA on MonMar 20, 2023 9:50:12 AM EDT Transcribed by: TANNER LOVETT on MonMar 20, 2023 9:59:46 AM EDT Finalized by: DAVID MOURA on MonMar 20, 2023 10:29:33 AM EDT [facility] Comment on above: Order Comment: Injur y/Trauma or Illness?:Illness/Other How long have you had these symptoms (acute/chronic)?:Acute Reason for exam?:chest and abd pain, vomiting Type of Exam?:Initial Additional signs and symptoms?: CT Angiogram Chest Abdomen P [facility] 03-20-2023 1. No acute thoracoabdominal aortic pathology. [...] Note made of prior appendectomy surgical clips. [employer] Workstation ID: [id number] [facility] EXAMINATION: CT ANGIOGRAM CHEST ABDOMEN PELVIS HISTORY: [...] Abdominal wall structures appear to be intact. [employer] David Kulkarni, DO - 03/20/2023 EXAMINATION: CT [...] appendectomy surgical clips. NTP/cdr Workstation ID: [id number] [facility] Radiology Study observation (narrative) [facility] CT Angiogram Chest Abdomen P elvisOrdered By: David Moura on 03-20-2023 [facility] Work Phone: ECG 12 Leadon 03-20-2023 Siddharth Gagnon MD 03/20/2023 4:45 PM ECG 12 Lead Date/Time: 03/20/2023 4:45 PM Performed by: Siddharth Gagnon MD Authorized by: Mariel Gagnon MD Interpreted by ED attending physician Comparison: not compared with previous ECG Rhythm: sinus rhythm and sinus bradycardia BPM: 56 Conduction: conduction normal ST Segments: ST segments normal T Waves: T waves normal normal [place] interval QT Interval: 514 Clinical impression: non-specific ECG and sinus bradycardia [facility] EKGon 03-20-2023 [facility] EKG 12-leadon 03-20-2023 Atrial Rate 56 BPM [facility] P [place] 9 degrees [facility] P-R Interval 130 ms [facility] Q-T Interval 514 ms [facility] QRS Duration 108 ms [facility] QTC Calculation (Bezet) 496 ms [facility] R [place] 51 degrees [facility] T [place] 42 degrees [facility] Ventricular Rate 56 BPM [facility] Sinus bradycardia wi th sinus arrhythmia Prolonged QT Abnormal ECG ECG Cart Interpretation see physician note for interpretation. Confirmed by Zita Dozier ([id number]) on 03/20/2023 1:39:42 PM MUSE [facility] Atrial Rate 73 BPM [facility] P [place] 45 degrees [facility] P-R Interval 136 ms [facility] Q-T Interval 398 ms [facility] QRS Duration 92 ms [facility] QTC Calculation (Bezet) 438 ms [facility] R [place] 83 degrees [facility] T [place] 53 degrees [facility] Ventricular Rate 73 BPM [facility] Mariel Gagnon M D 03/21/2023 2:39 PM EKG 12-lead Date/Time: 03/20/2023 6:02 AM Performed by: Mariel Gagnon MD Authorized by: Mariel Gagnon MD Interpreted by ED attending physician Rhythm: sinus rhythm BPM: 73 QRS axis: normal Clinical impression: normal ECG MUSE [facility] Glucose (Bld) [Mass/Vol]on 0 03-20-2023 Glucose [Mass/Vol] 245 mg/dL High 65 - 99 mg/dL [facility] Interpretation and review of laboratory results Abnormal [facility] Glucose [Mass/Vol] 284 mg/dL High 65 - 99 mg/dL [facility] Interpretation and review of laboratory results Abnormal [facility] Glucose [Mass/Vol] 406 mg/dL Critically high 65 - 99 mg/d L [facility] Interpretation and review of laboratory results Abnormal [facility] Critical result acte d upon time of test. Test performed at bedside. [facility] HCG (QUALITATIVE)on 03-20-20 Beta HCG ( test) Ql Negative Negative [facility] HbA1c (Bld) [Mass fraction]O rdered By: Destinee Baez on 03-20-2023 Average glucose Estimated from glycated hemoglobin (Bld) [Mass/Vol] 160 mg/dL High 68 - 114 mg/dL [facility] Interpretation and review of laboratory results Abnormal [facility] Normal: 4.0% - 5.6% Increased risk for diabetes: 5.7% - 6.4% Diabetes: >= 6.5% Pediatrics: No established reference range Estimated average glucose: 68-114 mg/dL [facility] Hemoglobin [id number] By: Georgina Baez on 03-20-2023 HbA1c (Bld) [Mass fraction] 7.2 % High 4.0 - 5.6 % [facility] Hepatic function 2000 panelo n 03-20-2023 Albumin [Mass/Vol] 3.8 g/dL 3.2 - 5.2 g/dL [facility] ALP [Catalytic activity/Vol] 84 U/L 40 - 140 U/L [facility] ALT [Catalytic activity/Vol] 26 U/L 14 - 65 U/L [facility] AST [Catalytic activity/Vol] 13 U/L 0 - 45 U/L [facility] Bilirubin [Mass/Vol] 0.6 mg/dL 0.0 - 1 .3 mg/dL [facility] Bilirubin.conjugated [Mass/Vol] 0.1 mg/dL 0.0 - 0.4 mg/dL [facility] Interpretation and review of laboratory results Normal [facility] Protein [Mass/Vol] 7.2 g/dL 6.0 - 8.0 g/dL [facility] Light Blue Topon 03-20-2023 Extra Tube Hold for add-ons. [facility] Comment on above: Auto resulted. [facility] Lipaseon 03-20-2023 Lipase [Catalytic activity/Vol] 53 U/L Low 73 - 393 U/L [facility] Magnesium Levelon 03-20-2023 Magnesium [Mass/Vol] 1.8 mg/dL 1.6 - 2 .4 mg/dL [facility] Magnesium [Mass/Vol]on 03-20 Interpretation and review of laboratory results Normal [facility] No Panel Informationon 03-20 Interpretation and review of laboratory results Abnormal [facility] UrinalysisOrdered By: Alysha Ramos on 03-20-2023 Bacteria Auto Ql (U) None Seen None Seen /hpf [facility] Bilirubin Ql (U) Negative Negative [facility] Clarity Refractometry automated (U) Cloudy Abnormal Clear [facility] Color (U) Yellow Colorless, Yellow [facility] Glucose Auto test strip (U) [Mass/Vol] >=500 Abnormal Negative mg/dL [facility] Hemoglobin Auto test strip Ql (U) Negative Negative [facility] Interpretation and review of laboratory results Abnormal [facility] Ketones (U) [Mass/Vol] mg/dL Abnormal Negative mg/d L [facility] Leukocyte esterase Auto test strip Ql (U) Negative Negative [facility] h Mucus Auto (Urine sed) [#/Area] Rare None Seen, Rare /lpf [facility] Nitrite Auto test strip Ql (U) Negative Negative [facility] pH (U) 7.0 [pH] 5.0 - 7.0 [facility] Protein (U) [Mass/Vol] Negative Negative mg/d L [facility] RBC Auto (Urine sed) [#/Area] 1 [facility] Specific gravity (U) [Rel density] 1.023 1.005 - 1.025 [facility] Urobilinogen (U) [Mass/Vol] mg/dL NINF - 2.0 mg/dL [facility] WBC Auto (Urine sed) [#/Area] 3 [facility] Microscopic examination is performed on all urinalysis samples and only positive findings are reported. The test for blood on the chemical analytic portion of urinalysis may also be positive due to hemoglobinuria and myoglobinuria and if red blood cells are present they are quantified by microscopic examination. [facility] CNPNon 02-26-2023 CNPN Telephone (AKURFL) KATHLEEN VILLA ([id number]) 1995 F CHT Date Time Provider Department 02/26/23 VERITO BORDEN During your visit today, we recorded the following information about you: Verito Borden PA-C 02/26/2023 7:21 AM Signed This pt needs scheduled with dr gonzales or jacquelyn to. ALEX Cohen 03/03/2023 10:57 AM Signed Called and confirmed [...] Status:Closed by VERITO BORDEN on 02/26/23 Normal [facility] Basic metabolic 2000 panelon 02-04-2023 Anion gap [Moles/Vol] 8 mmol/L Normal 5-16 [facility] Comment on above: Order Comment: Speci men Type: BLOOD SPECIMEN Ordering Facility: [facility] Address: [address] [place] [address] Performed By: #### 3 1201-7, 5195-3, 83648-1, SYPH #### [facility] CLIA [id number] [address] [place] [address] [place] Calcium [Mass/Vol] 8.3 mg/dL Low 8.5-10.5 [facility] Comment on above: Order Comment: Speci men Type: BLOOD SPECIMEN Ordering Facility: [facility] Address: [address] [place] [address] Performed By: #### 3 1201-7, 5195-3, 29862-1, SYPH #### [facility] CLIA [id number] [address] [place] [address] [place] Chloride [Moles/Vol] 106 mmol/L Normal 98-107 [facility] Comment on above: Order Comment: Speci men Type: BLOOD SPECIMEN Ordering Facility: [facility] Address: [address] [place] [address] Performed By: #### 3 1201-7, 5195-3, 92358-6, SYPH #### [facility] CLIA [id number] [address] [place] [address] [place] CO2 [Moles/Vol] 27 mmol/L Normal 21-32 [facility] Comment on above: Order Comment: Speci men Type: BLOOD SPECIMEN Ordering Facility: [facility] Address: [address] [place] [address] Performed By: #### 3 1201-7, 5195-3, 21806-6, SYPH #### [facility] CLIA [id number] [address] [place], [place] [id number] [place] Creatinine [Mass/Vol] 0.58 mg/dL Normal 0.51-0.95 [facility] Comment on above: Order Comment: Jon russ Type: BLOOD SPECIMEN Ordering Facility: [facility] Address: [address] [phone] Result Comment: Cleopatra ents receiving either N-Acetylcysteine (NAC) or Metamizole prior to venipuncture, may have falsely depressed results. Performed By: #### 3 1201-7, 5195-3, 58333-9, SYPH #### [facility] CLIA [id number] [address] [place] [address] [place] ESTIMATED GLOMERULAR FILTRATION RATE 127 mL/min/1.73m??? Normal >=60 [facility] Comment on above: Order Comment: Jon russ Type: BLOOD SPECIMEN Ordering Facility: [facility] Address: [address] [place], [place] [phone] Result Comment: Janett mated Glomerular Filtration Rate [...] GFR. Performed By: #### 3 1201-7, 5195-3, 06339-3, SYPH #### [facility] CLIA [id number] [address] [place] [address] [place] Glucose [Mass/Vol] 271 mg/dL High 70-100 [facility] Comment on above: Order Comment: Jon russ Type: BLOOD SPECIMEN Ordering Facility: [facility] Address: [address] [phone] Result Comment: The [place] Diabetes Association (ADA) provides guidance for cutoff [...] Standards of Medical Care in Diabetes 2016, [place] [employer]. Diabetes Care. 2016.39(Suppl 1). Results may be falsely elevated after the administration of Sulfapyridine. Results may be falsely depressed after the administration of Sulfasalazine. Performed By: #### 3 1201-7, 5195-3, 20057-6, SYPH #### [facility] CLIA [id number] [address] [place] [address] [place] Potassium [Moles/Vol] 3.4 mmol/L Low 3.5-5.1 [facility] Comment on above: Order Comment: Jon russ Type: BLOOD SPECIMEN Ordering Facility: [facility] Address: [address] [place] [address] Performed By: #### 3 1201-7, 5195-3, 44793-1, SYPH #### [facility] CLIA [id number] [address] [place] [address] [place] Sodium [Moles/Vol] 141 mmol/L Normal 136-145 [facility] Comment on above: Order Comment: Jon russ Type: BLOOD SPECIMEN Ordering Facility: [facility] Address: [address] [place] [address] Performed By: #### 3 1201-7, 5195-3, 90469-9, SYPH #### [facility] CLIA [id number] [address] [place] [address] [place] Urea nitrogen [Mass/Vol] 6 mg/dL Low 7-26 [facility] Comment on above: Order Comment: Jon russ Type: BLOOD SPECIMEN Ordering Facility: [facility] Address: [address] [place] [address] Performed By: #### 3 1201-7, 5195-3, 11702-9, SYPH #### [facility] CLIA [id number] [address] [place] [address] [place] Anion gap [Moles/Vol] 7 mmol/L Normal 5-16 [facility] Comment on above: Order Comment: Speci men Type: BLOOD SPECIMEN Ordering Facility: [facility] Address: [address] [address] Performed By: #### 3 1201-7, 5195-3, 00633-2, SYPH #### [facility] CLIA [id number] [address] [place] [address] [place] Calcium [Mass/Vol] 8.0 mg/dL Low 8.5-10.5 [facility] Comment on above: Order Comment: Speci men Type: BLOOD SPECIMEN Ordering Facility: [facility] Address: [address] [place] [address] Performed By: #### 3 1201-7, 5195-3, 98655-4, SYPH #### [facility] CLIA [id number] [address] [place] [address] [place] Chloride [Moles/Vol] 106 mmol/L Normal 98-107 [facility] Comment on above: Order Comment: Speci men Type: BLOOD SPECIMEN Ordering Facility: [facility] Address: [address] [place] [address] Performed By: #### 3 1201-7, 5-3, 98319-4, SYPH #### [facility] CLIA [id number] [address] [place] [address] [place] CO2 [Moles/Vol] 27 mmol/L Normal 21-32 [facility] Comment on above: Order Comment: Speci men Type: BLOOD SPECIMEN Ordering Facility: [facility] Address: [address] [place] [address] Performed By: #### 3 1201-7, 5195-3, 67000-6, SYPH #### [facility] CLIA [id number] [address] [place] [address] [place] Creatinine [Mass/Vol] 0.61 mg/dL Normal 0.51-0.95 [facility] Comment on above: Order Comment: Speci men Type: BLOOD SPECIMEN Ordering Facility: [facility] Address: [address] [phone] Result Comment: Cleopatra ents receiving either N-Acetylcysteine (NAC) or Metamizole prior to venipuncture, may have falsely depressed results. Performed By: #### 3 1201-7, 5195-3, 98484-6, SYPH #### [facility] CLIA [id number] [address] [place] [address] [place] ESTIMATED GLOMERULAR FILTRATION RATE 125 mL/min/1.73m??? Normal >=60 [facility] Comment on above: Order Comment: Jon russ Type: BLOOD SPECIMEN Ordering Facility: [facility] Address: [address] [place] [address] Result Comment: Janett mated Glomerular Filtration Rate [...] GFR. Performed By: #### 3 1201-7, 5195-3, 58289-0, SYPH #### [facility] CLIA [id number] [address] [place] [address] [place] Glucose [Mass/Vol] 269 mg/dL High 70-100 [facility] Comment on above: Order Comment: Jon russ Type: BLOOD SPECIMEN Ordering Facility: [facility] Address: [address] [phone] Result Comment: The [place] Diabetes Association (ADA) provides guidance for cutoff [...] Standards of Medical Care in Diabetes 2016, [place] [employer]. Diabetes Care. 2016.39(Suppl 1). Results may be falsely elevated after the administration of Sulfapyridine. Results may be falsely depressed after the administration of Sulfasalazine. Performed By: #### 3 1201-7, 5195-3, 27271-2, SYPH #### [facility] CLIA [id number] [address] [place] [address] [place] Potassium [Moles/Vol] 3.5 mmol/L Normal 3.5-5.1 [facility] Comment on above: Order Comment: Belindai jeb Type: BLOOD SPECIMEN Ordering Facility: [facility] Address: [address] [place] [address] Performed By: #### 3 1201-7, 5195-3, 00383-5, SYPH #### [facility] CLIA [id number] [address] [place] [address] [place] Sodium [Moles/Vol] 140 mmol/L Normal 136-145 [facility] Comment on above: Order Comment: Belindai jeb Type: BLOOD SPECIMEN Ordering Facility: [facility] Address: [address] [place] [address] Performed By: #### 3 1201-7, 5195-3, 01637-8, SYPH #### [facility] CLIA [id number] [address] [place] [address] [place] Urea nitrogen [Mass/Vol] 6 mg/dL Low 7- [facility] Comment on above: Order Comment: Belindai jeb Type: BLOOD SPECIMEN Ordering Facility: [facility] Address: [address] [address] Performed By: #### 3 1201-7, 5195-3, 65954-3, SYPH #### [facility] CLIA [id number] [address] [place] [address] [place] CBC W Auto Differential pane l (Bld)on 02-04-2023 Basophils (Bld) [#/Vol] 0.04 10*3/uL Normal <0.11 [facility] Comment on above: Order Comment: Speci men Type: BLOOD SPECIMEN Ordering Facility: [facility] Address: [address] [address] Performed By: #### 3 1201-7, 5194-3, 10810-7, SYPH #### [facility] CLIA [id number] [address] [place] [address] [place] Basophils/100 WBC (Bld) 0.4 % Normal [facility] Comment on above: Order Comment: Speci men Type: BLOOD SPECIMEN Ordering Facility: [facility] Address: [address] [address] Performed By: #### 3 1201-7, 5194-3, 71450-8, SYPH #### [facility] CLIA [id number] [address] [place] [address] [place] Differential cell count method Nom (Bld) Auto Normal [facility] Comment on above: Order Comment: Speci men Type: BLOOD SPECIMEN Ordering Facility: [facility] Address: [address] [address] Performed By: #### 3 1201-7, 5194-3, 01426-0, SYPH #### [facility] CLIA [id number] [address] [place] [address] [place] Eosinophils (Bld) [#/Vol] 0.04 10*3/uL Normal <0.46 [facility] Comment on above: Order Comment: Speci men Type: BLOOD SPECIMEN Ordering Facility: [facility] Address: [address] [address] Performed By: #### 3 1201-7, 5-3, 31309-7, SYPH #### [facility] CLIA [id number] [address] [place] [address] [place] Eosinophils/100 WBC (Bld) 0.4 % Normal [facility] Comment on above: Order Comment: Speci men Type: BLOOD SPECIMEN Ordering Facility: [facility] Address: [address] [address] Performed By: #### 3 1201-7, 5194-3, 76520-7, SYPH #### [facility] CLIA [id number] [address] [place] [address] [place] Erythrocyte distribution width (RBC) [Ratio] 13.3 % Normal 11.5-15.0 [facility] Comment on above: Order Comment: Speci men Type: BLOOD SPECIMEN Ordering Facility: [facility] Address: [address] [address] Performed By: #### 3 1201-7, 5-3, 89074-6, SYPH #### [facility] CLIA [id number] [address] [place] [address] [place] Hematocrit (Bld) [Volume fraction] 34.5 % Low 36.0-46.0 [facility] Comment on above: Order Comment: Speci men Type: BLOOD SPECIMEN Ordering Facility: [facility] Address: [address] [place] [address] Performed By: #### 3 1201-7, 5194-3, 60445-2, SYPH #### [facility] CLIA [id number] [address] [place] [address] [place] Hemoglobin (Bld) [Mass/Vol] 11.6 g/dL Normal 11.5-15.5 [facility] Comment on above: Order Comment: Speci men Type: BLOOD SPECIMEN Ordering Facility: [facility] Address: [address] [address] Performed By: #### 3 1201-7, 5194-3, 53052-4, SYPH #### [facility] CLIA [id number] [address] [place] [address] [place] Immature granulocytes (Bld) [#/Vol] 0.10 10*3/uL High <0.10 [facility] Comment on above: Order Comment: Speci men Type: BLOOD SPECIMEN Ordering Facility: [facility] Address: [address] [place] [address] Performed By: #### 3 1201-7, 5194-3, 39106-1, SYPH #### [facility] CLIA [id number] [address] [place] [address] [place] Immature granulocytes/100 WBC (Bld) 0.9 % Normal [facility] Comment on above: Order Comment: Speci men Type: BLOOD SPECIMEN Ordering Facility: [facility] Address: [address] [place] [address] Performed By: #### 3 1201-7, 5195-3, 82876-2, SYPH #### [facility] CLIA [id number] [address] [place] [address] [place] Lymphocytes (Bld) [#/Vol] 2.41 10*3/uL Normal 1.00-4.00 [facility] Comment on above: Order Comment: Speci men Type: BLOOD SPECIMEN Ordering Facility: [facility] Address: [address] [place] [address] Performed By: #### 3 1201-7, 5-3, 25292-3, SYPH #### [facility] CLIA [id number] [address] [place] [address] Lymphocytes/100 WBC (Bld) 22.3 % Normal [facility] Comment on above: Order Comment: Speci men Type: BLOOD SPECIMEN Ordering Facility: [facility] Address: [address] [place] [address] Performed By: #### 3 1201-7, 5195-3, 43744-8, SYPH #### [facility] CLIA [id number] [address] [place] [address] [place] MCH (RBC) [Entitic mass] 29.1 pg Normal 26.0-34.0 [facility] Comment on above: Order Comment: Speci men Type: BLOOD SPECIMEN Ordering Facility: [facility] Address: [address] [place] [address] Performed By: #### 3 1201-7, 5195-3, 48622-3, SYPH #### [facility] CLIA [id number] [address] [place] [address] [place] MCHC (RBC) [Mass/Vol] 33.6 g/dL Normal 30.5-36.0 [facility] Comment on above: Order Comment: Speci men Type: BLOOD SPECIMEN Ordering Facility: [facility] Address: [address] [place] [address] Performed By: #### 3 1201-7, 5195-3, 39076-8, SYPH #### [facility] CLIA [id number] [address] [place] [address] [place] MCV (RBC) [Entitic vol] 86.5 fL Normal 80.0-100.0 [facility] Comment on above: Order Comment: Speci men Type: BLOOD SPECIMEN Ordering Facility: [facility] Address: [address] [place] [address] Performed By: #### 3 1201-7, 5195-3, 01342-1, SYPH #### [facility] CLIA [id number] [address] [place] [address] [place] Monocytes (Bld) [#/Vol] 0.70 10*3/uL Normal <0.87 [facility] Comment on above: Order Comment: Speci men Type: BLOOD SPECIMEN Ordering Facility: [facility] Address: [address] [place] [address] Performed By: #### 3 1201-7, 5195-3, 76850-6, SYPH #### [facility] CLIA [id number] [address] [place] [address] [place] Monocytes/100 WBC (Bld) 6.5 % Normal [facility] Comment on above: Order Comment: Speci men Type: BLOOD SPECIMEN Ordering Facility: [facility] Address: [address] [place] [address] Performed By: #### 3 1201-7, 5-3, 15765-7, SYPH #### [facility] CLIA [id number] [address] [place] [address] [place] [facility] [place] Neutrophils (Bld) [#/Vol] 7.54 10*3/uL High 1.45-7.50 [facility] Comment on above: Order Comment: Speci men Type: BLOOD SPECIMEN Ordering Facility: [facility] Address: [address] [place] [address] Performed By: #### 3 1201-7, 5-3, 24915-1, SYPH #### [facility] CLIA [id number] [address] [place] [address] [place] Neutrophils/100 WBC (Bld) 69.5 % Normal [facility] Comment on above: Order Comment: Speci men Type: BLOOD SPECIMEN Ordering Facility: [facility] Address: [address] [address] Performed By: #### 3 1201-7, 5194-3, 00705-2, SYPH #### [facility] CLIA [id number] [address] [place] [address] [place] Nucleated RBC (Bld) [#/Vol] 10*3/uL Normal <0.01 [facility] Comment on above: Order Comment: Speci men Type: BLOOD SPECIMEN Ordering Facility: [facility] Address: [address] [place] [address] Performed By: #### 3 1201-7, 3, 59903-2, SYPH #### [facility] CLIA [id number] [address] [place] [address] [place] Nucleated RBC/100 WBC (Bld) [Ratio] 0.0 /[address] [facility] Comment on above: Order Comment: Speci men Type: BLOOD SPECIMEN Ordering Facility: [facility] Address: [address] [place] [address] Performed By: #### 3 1201-7, 5-3, 84600-9, SYPH #### [facility] CLIA [id number] [address] [place] [address] [place] Platelet mean volume (Bld) [Entitic vol] 11.7 fL Normal 9.0-12.7 [facility] Comment on above: Order Comment: Speci men Type: BLOOD SPECIMEN Ordering Facility: [facility] Address: [address] [place], [place] [phone] Performed By: #### 3 1201-7, 5195-3, 93858-9, SYPH #### [facility] CLIA [id number] [address] [place] [address] [place] Platelets (Bld) [#/Vol] 163 10*3/uL Normal 150-400 [facility] Comment on above: Order Comment: Speci men Type: BLOOD SPECIMEN Ordering Facility: [facility] Address: [address] [place], [place] [address] Performed By: #### 3 1201-7, 5195-3, 08816-5, SYPH #### [facility] CLIA [id number] [address] [place] [address] [place] RBC (Bld) [#/Vol] 3.99 10*6/uL Normal 3.90-5.20 [facility] Comment on above: Order Comment: Speci men Type: BLOOD SPECIMEN Ordering Facility: [facility] Address: [address] [place], [place] [id number] Performed By: #### 3 1201-7, 5195-3, 21166-6, SYPH #### [facility] CLIA [id number] [address] [place] [address] [place] WBC (Bld) [#/Vol] 10.83 10*3/uL Normal 3.70-11.00 [facility] Comment on above: Order Comment: Speci men Type: BLOOD SPECIMEN Ordering Facility: [facility] Address: [address] [place], [place] [address] Performed By: #### 3 1201-7, 5195-3, 69692-3, SYPH #### [facility] CLIA [id number] [address] [place] [address] [place] CNDSon 02-04-2023 CNDS HNO ID: [id number] Author: David Burnett DO Service: Hospital Medicine [...] summary. SPECIALITY SERVICES SEEN DURING HOSPITALIZATION: hospitalist, other sales support worker CHIEF COMPLAINT: DKA REASON FOR HOSPITALIZATION: DKA, gastroparesis FINAL DIAGNOSIS: DKA, gastroparesis OPERATIONS/PROCEDURES DURING HOSPITALIZATION: HOSPITAL COURSE: 27-year-old white female who presented 2 days ago on 01/31 secondary to nausea and vomiting at home. Patient has a known history of diabetic gastroparesis. She follows in [facility]. She was admitted to [place]. Unfortunately she has not been tolerating p.o. 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 Follow up with PCP in one [...] long-term current use of insulin ([facility]); Insulin pump status prochlorperazine (COMPAZINE) 10 mg Take 10 mg by mouth every 6 hours as needed. Qty: 15 tablet Refills: 0 Lancets (MICROLET LANCET) lancets Use as instructed to test blood sugar 4 times daily. E10.65 Qty: 400 Each Refills: 3 Associated Diagnoses:Type 1 diabetes mellitus with hyperglycemia, with long-term current use of insulin ([facility]); Insulin pump status blood sugar diagnostic (CONTOUR NEXT TEST STRIPS) test strip Use as instructed to check blood glucose 5 times daily. E10.65 Qty: 500 Strip Refills: 3 Associated Diagnoses:Type 1 diabetes mellitus with hyperglycemia, with long-term current use of insulin (HCC); Insulin p (more content not included)... [facility] ALLIED HEALTHon 02-03-2023 ALLIED HEALTH HNO ID: [id number] Author: Chaplain Craig Service: Spiritual Care Author Type: International Travel Consultant Type: Allied Health Filed: 02/03/2023 11:39 AM Note Text: SPIRITUAL CARE PROGRESS NOTE SERVICE DATE: 02/03/2023 SERVICE TIME: 10:35 am While rounding in ICU, attempted to provided spiritual presence to patient. Patient was busy . No family was present. A re recording mixer will follow up. To contact the Spiritual Care Department: Please call [phone]. SIGNATURE: Chaplain Craig PATIENT NAME: Kathleen Villa DATE: February 03, 2023 TIME: 11:37 AM PAGER/CONTACT #: [phone] [facility] Basic metabolic 2000 panelon 02-03-2023 Anion gap [Moles/Vol] 9 mmol/L Normal 5-16 [facility] Comment on above: Order Comment: Speci men Type: BLOOD SPECIMEN Ordering Facility: [facility] Address: [address] [place], [place] [id number] Performed By: #### 3 1201-7, 5195-3, 11467-4, SYPH #### [facility] CLIA [id number] [address] [place] [address] [place] Calcium [Mass/Vol] 8.1 mg/dL Low 8.5-10.5 [facility] Comment on above: Order Comment: Speci men Type: BLOOD SPECIMEN Ordering Facility: [facility] Address: [address] [place], [place] [id number] Performed By: #### 3 1201-7, 5195-3, 03723-1, SYPH #### [facility] CLIA [id number] [address] [place] [address] [place] Chloride [Moles/Vol] 112 mmol/L High 98-107 [facility] Comment on above: Order Comment: Speci men Type: BLOOD SPECIMEN Ordering Facility: [facility] Address: [address] [place], [place] [id number] Performed By: #### 3 1201-7, 5195-3, 79301-2, SYPH #### [facility] CLIA [id number] [address] [place] [address] [place] CO2 [Moles/Vol] 22 mmol/L Normal 21-32 [facility] Comment on above: Order Comment: Speci men Type: BLOOD SPECIMEN Ordering Facility: [facility] Address: [address] [place], [place] [id number] Performed By: #### 3 1201-7, 5195-3, 02169-3, SYPH #### [facility] CLIA [id number] [address] [place] [address] [place] Creatinine [Mass/Vol] 0.57 mg/dL Normal 0.51-0.95 [facility] Comment on above: Order Comment: Speci men Type: BLOOD SPECIMEN Ordering Facility: [facility] Address: [address] [place], [place] [address] Result Comment: Cleopatra ents receiving either N-Acetylcysteine (NAC) or Metamizole prior to venipuncture, may have falsely depressed results. Performed By: #### 3 1201-7, 5195-3, 49115-8, SYPH #### [facility] CLIA [id number] [address] [place] [address] OF [facility] ESTIMATED GLOMERULAR FILTRATION RATE 127 mL/min/1.73m??? Normal >=60 [facility] Comment on above: Order Comment: Speci men Type: BLOOD SPECIMEN Ordering Facility: [facility] Address: [address] [place], [place] [address] Result Comment: Janett mated Glomerular Filtration Rate [...] GFR. Performed By: #### 3 1201-7, 5195-3, 73301-5, SYPH #### [facility] CLIA [id number] [address] [place], [place] [address] [place] Glucose [Mass/Vol] 135 mg/dL High 70-100 [facility] Comment on above: Order Comment: Speci men Type: BLOOD SPECIMEN Ordering Facility: [facility] Address: [address] [place] [id number] Result Comment: The [place] Diabetes Association (ADA) provides guidance for cutoff [...] Standards of Medical Care in Diabetes 2016, [place] [employer] Association. Diabetes Care. 2016.39(Suppl 1). Results may be falsely elevated after the administration of Sulfapyridine. Results may be falsely depressed after the administration of Sulfasalazine. Performed By: #### 3 1201-7, 5195-3, 82090-1, SYPH #### [facility] CLIA [id number] [address] [place] [address] [place] Potassium [Moles/Vol] 4.0 mmol/L Normal 3.5-5.1 [facility] Comment on above: Order Comment: Speci men Type: BLOOD SPECIMEN Ordering Facility: [facility] Address: [place] [address] Performed By: #### 3 1201-7, 5195-3, 88266-3, SYPH #### [facility] CLIA [id number] [address] [place] [address] [place] Sodium [Moles/Vol] 143 mmol/L Normal 136-145 [facility] Comment on above: Order Comment: Speci men Type: BLOOD SPECIMEN Ordering Facility: [facility] Address: [place] [address] Performed By: #### 3 1201-7, 5195-3, 51815-7, SYPH #### [facility] CLIA [id number] [address] [place], [place] [address] [facility] Urea nitrogen [Mass/Vol] 8 mg/dL Normal - 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 Operator Type: Care Mgt Initial Assessment Filed: 02/03/2023 2:35 PM Note Text: CARE MANAGEMENT: ASSESSMENT AND DISCHARGE PLAN SERVICE DATE: February 03, 2023 SERVICE TIME: 2:31 PM PCP: Vivi Smith MD Primary Contact: Extended Emergency Contact Information Primary Emergency Contact: Rene [place] Relation: Significant other Admission Status: Inpatient Insurance Provider: [employer] MEDICARE Discharge Planning requested by: Per Department Practice Potential Transition Plans Home Advance Directives 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 SIGNATURE: MICHELLE Tobar PATIENT NAME: Kathleen Villa DATE: February 03, 2023 TIME: 2:31 PM CONTACT #: [phone] [facility] CBC W Auto Differential pane l (Bld)on 02-03-2023 Basophils (Bld) [#/Vol] 0.05 10*3/uL Normal <0.11 [facility] Comment on above: Order Comment: Speci men Type: BLOOD SPECIMEN Ordering Facility: [facility] Address: [place] [address] Performed By: #### 3 1201-7, 5195-3, 16042-1, SYPH #### [facility] CLIA [id number] [address] [place] [address] [place] Basophils/100 WBC (Bld) 0.3 % [facility] Comment on above: Order Comment: Speci men Type: BLOOD SPECIMEN Ordering Facility: [facility] Address: [address] [address] Performed By: #### 3 1201-7, 5-3, 43273-7, SYPH #### [facility] CLIA [id number] [address] [place] [address] [place] Differential cell count method Nom (Bld) Auto Normal [facility] Comment on above: Order Comment: Speci men Type: BLOOD SPECIMEN Ordering Facility: [facility] Address: [address] [address] Performed By: #### 3 1201-7, 5-3, 43645-8, SYPH #### [facility] CLIA [id number] [address] [place] [address] [place] Eosinophils (Bld) [#/Vol] 10*3/uL Normal <0.46 [facility] Comment on above: Order Comment: Speci men Type: BLOOD SPECIMEN Ordering Facility: [facility] Address: [address] [address] Performed By: #### 3 1201-7, 5-3, 04959-2, SYPH #### [facility] CLIA [id number] [address] [place] [address] [place] Eosinophils/100 WBC (Bld) 0.0 % Normal [facility] Comment on above: Order Comment: Speci men Type: BLOOD SPECIMEN Ordering Facility: [facility] Address: [address] [address] Performed By: #### 3 1201-7, 5-3, 86286-9, SYPH #### [facility] CLIA [id number] [address] [place] [address] [place] Erythrocyte distribution width (RBC) [Ratio] 13.5 % Normal 11.5-15.0 [facility] Comment on above: Order Comment: Speci men Type: BLOOD SPECIMEN Ordering Facility: [facility] Address: [address] [address] Performed By: #### 3 1201-7, 5195-3, 84557-5, SYPH #### [facility] CLIA [id number] [address] [place] [address] [place] Hematocrit (Bld) [Volume fraction] 37.7 % Normal 36.0-46.0 [facility] Comment on above: Order Comment: Speci men Type: BLOOD SPECIMEN Ordering Facility: [facility] Address: [address] [place] [address] Performed By: #### 3 1201-7, 5195-3, 42022-5, SYPH #### [facility] CLIA [id number] [address] [place] [address] [place] Hemoglobin (Bld) [Mass/Vol] 11.8 g/dL Normal 11.5-15.5 [facility] Comment on above: Order Comment: Speci men Type: BLOOD SPECIMEN Ordering Facility: [facility] Address: [address] Performed By: #### 3 1201-7, 5-3, 24288-0, SYPH #### [facility] CLIA [id number] [address] [place] [address] [place] Immature granulocytes (Bld) [#/Vol] 0.16 10*3/uL High <0.10 [facility] Comment on above: Order Comment: Speci men Type: BLOOD SPECIMEN Ordering Facility: [facility] Address: [address] [place] [address] Performed By: #### 3 1201-7, 5195-3, 48161-4, SYPH #### [facility] CLIA [id number] [address] [place] [address] [place] Immature granulocytes/100 WBC (Bld) 1.0 % Normal [facility] Comment on above: Order Comment: Speci men Type: BLOOD SPECIMEN Ordering Facility: [facility] Address: [address] Performed By: #### 3 1201-7, 5195-3, 97672-1, SYPH #### [facility] CLIA [id number] [address] [place] [address] [place] Lymphocytes (Bld) [#/Vol] 1.76 10*3/uL Normal 1.00-4.00 [facility] Comment on above: Order Comment: Speci men Type: BLOOD SPECIMEN Ordering Facility: [facility] Address: [address] [place] [address] Performed By: #### 3 1201-7, 5194-3, 05317-6, SYPH #### [facility] CLIA [id number] [address] [place] [address] [place] Lymphocytes/100 WBC (Bld) 10.7 % Normal [facility] Comment on above: Order Comment: Speci men Type: BLOOD SPECIMEN Ordering Facility: [facility] Address: [address] [place] [address] Performed By: #### 3 1201-7, 5194-3, , SYPH #### [facility] CLIA [id number] [address] [place] [address] [place] MCH (RBC) [Entitic mass] 29.7 pg Normal 26.0-34.0 [facility] Comment on above: Order Comment: Speci men Type: BLOOD SPECIMEN Ordering Facility: [facility] Address: [address] [place] [address] Performed By: #### 3 1201-7, 5194-3, , SYPH #### [facility] CLIA [id number] [address] [place] [address] [place] MCHC (RBC) [Mass/Vol] 31.3 g/dL Normal 30.5-36.0 [facility] Comment on above: Order Comment: Speci men Type: BLOOD SPECIMEN Ordering Facility: [facility] Address: [address] [place] [address] Performed By: #### 3 1201-7, 5194-3, 16893-2, SYPH #### [facility] CLIA [id number] [address] [place] [address] [place] MCV (RBC) [Entitic vol] 95.0 fL Normal 80.0-100.0 [facility] Comment on above: Order Comment: Speci men Type: BLOOD SPECIMEN Ordering Facility: [facility] Address: [address] [place] [address] Performed By: #### 3 1201-7, 5195-3, 15529-5, SYPH #### [facility] CLIA [id number] [address] [place] [address] [place] Monocytes (Bld) [#/Vol] 0.77 10*3/uL Normal <0.87 [facility] Comment on above: Order Comment: Speci men Type: BLOOD SPECIMEN Ordering Facility: [facility] Address: [address] [place] [address] Performed By: #### 3 1201-7, 5195-3, 29147-2, SYPH #### [facility] CLIA [id number] [address] [place] [address] [place] Monocytes/100 WBC (Bld) 4.7 % Normal [facility] Comment on above: Order Comment: Speci men Type: BLOOD SPECIMEN Ordering Facility: [facility] Address: [address] [place] [address] Performed By: #### 3 1201-7, 5195-3, 36909-6, SYPH #### [facility] CLIA [id number] [address] [place], [place] [address] [place] Neutrophils (Bld) [#/Vol] 13.71 10*3/uL High 1.45-7.50 [facility] Comment on above: Order Comment: Speci men Type: BLOOD SPECIMEN Ordering Facility: [facility] Address: [address] [place] [address] Performed By: #### 3 1201-7, 5195-3, 89925-7, SYPH #### [facility] CLIA [id number] [address] [place] [address] [place] Neutrophils/100 WBC (Bld) 83.3 % Normal [facility] Comment on above: Order Comment: Speci men Type: BLOOD SPECIMEN Ordering Facility: [facility] Address: [address] [place] [address] Performed By: #### 3 1201-7, 5-3, 44243-5, SYPH #### [facility] CLIA [id number] [address] [place] [address] [place] Nucleated RBC (Bld) [#/Vol] 10*3/uL Normal <0.01 [facility] Comment on above: Order Comment: Speci men Type: BLOOD SPECIMEN Ordering Facility: [facility] Address: [address] [place] [address] Performed By: #### 3 1201-7, 5-3, 08941-2, SYPH #### [facility] CLIA [id number] [address] [place] [address] [place] Nucleated RBC/100 WBC (Bld) [Ratio] 0.0 /[address] [facility] Comment on above: Order Comment: Speci men Type: BLOOD SPECIMEN Ordering Facility: [facility] Address: [address] [place] [address] Performed By: #### 3 1201-7, 5-3, 94122-0, SYPH #### [facility] CLIA [id number] [address] [place] [address] [place] Platelet mean volume (Bld) [Entitic vol] 12.4 fL Normal 9.0-12.7 [facility] Comment on above: Order Comment: Speci men Type: BLOOD SPECIMEN Ordering Facility: [facility] Address: [address] [place] [address] Performed By: #### 3 1201-7, 5194-3, 51138-5, SYPH #### [facility] CLIA [id number] [address] [place] [address] [place] Platelets (Bld) [#/Vol] 144 10*3/uL Low 150-400 [facility] Comment on above: Order Comment: Speci men Type: BLOOD SPECIMEN Ordering Facility: [facility] Address: [address] [place], [place] [id number] Performed By: #### 3 1201-7, 5195-3, 37652-8, SYPH #### [facility] CLIA [id number] [address] [place], [place] [address] [place] RBC (Bld) [#/Vol] 3.97 10*6/uL Normal 3.90-5.20 [facility] Comment on above: Order Comment: Speci men Type: BLOOD SPECIMEN Ordering Facility: [facility] Address: [address] [address] Performed By: #### 3 1201-7, 5195-3, 77607-2, SYPH #### [facility] CLIA [id number] [address] [place] [address] [place] WBC (Bld) [#/Vol] 16.45 10*3/uL High 3.70-11.00 [facility] Comment on above: Order Comment: Speci men Type: BLOOD SPECIMEN Ordering Facility: [facility] Address: [address] [place] [address] Performed By: #### 3 1201-7, 5195-3, 00903-6, SYPH #### [facility] CLIA [id number] [address] [place], [place] [address] [place] Comprehensive metabolic 2000 panelon 02-03-2023 Albumin [Mass/Vol] 3.5 g/dL Normal 3.2-5.0 [facility] Comment on above: Order Comment: Speci men Type: BLOOD SPECIMEN Ordering Facility: [facility] Address: [address] [address] Performed By: #### 3 1201-7, 5195-3, 05202-5, SYPH #### [facility] CLIA [id number] [address] [place], [place] [address] [facility] ALP [Catalytic activity/Vol] 82 U/L Normal 45-117 [facility] Comment on above: Order Comment: Speci men Type: BLOOD SPECIMEN Ordering Facility: [facility] Address: [address] Performed By: #### 3 1201-7, 5195-3, 16277-7, SYPH #### [facility] CLIA [id number] [address] [place] [address] [place] [facility] ALT [Catalytic activity/Vol] 19 U/L Normal 13-61 [facility] Comment on above: Order Comment: Speci men Type: BLOOD SPECIMEN Ordering Facility: [facility] Address: [address] [place] [address] Result Comment: Resu lts may be falsely depressed after the administration of Sulfasalazine and/or Sulfapyridine. Performed By: #### 3 1201-7, 5195-3, 67668-1, SYPH #### [facility] CLIA [id number] [address] [place] [address] [place] Anion gap [Moles/Vol] 17 mmol/L High 5-16 [facility] Comment on above: Order Comment: Speci men Type: BLOOD SPECIMEN Ordering Facility: [facility] Address: [address] [place] [address] Performed By: #### 3 1201-7, 5195-3, 80963-5, SYPH #### [facility] CLIA [id number] [address] [place] [address] [place] AST [Catalytic activity/Vol] Normal [facility] Comment on above: Order Comment: Speci jeb Type: BLOOD SPECIMEN Ordering Facility: [facility] Address: [address] [place] [address] Result Comment: Unab le to assay due to interference from hemolysis. Suggest reorder as clinically indicated. Critical or Urgent Result(s) Called at: 04:33:47 on 02/03/2023 by milly. Called to and read back by: CLOVIS Results may be falsely depressed after the administration of Sulfasalazine and/or Sulfapyridine. Performed By: #### 3 1201-7, 5195-3, 52984-6, SYPH #### [facility] CLIA [id number] [address] [place] [address] [place] Bilirubin [Mass/Vol] 1.0 mg/dL Normal 0.2-1.0 [facility] Comment on above: Order Comment: Speci men Type: BLOOD SPECIMEN Ordering Facility: [facility] Address: [address] [place] [address] Performed By: #### 3 1201-7, 5195-3, 86443-6, SYPH #### [facility] CLIA [id number] [address] [place] [address] [place] Calcium [Mass/Vol] 8.5 mg/dL Normal 8.5-10.5 [facility] Comment on above: Order Comment: Speci men Type: BLOOD SPECIMEN Ordering Facility: [facility] Address: [address] [place] [address] Performed By: #### 3 1201-7, 5195-3, 89774-9, SYPH #### [facility] CLIA [id number] [address] [place] [address] [place] Chloride [Moles/Vol] 109 mmol/L High 98-107 [facility] Comment on above: Order Comment: Speci men Type: BLOOD SPECIMEN Ordering Facility: [facility] Address: [address] [place] [address] Performed By: #### 3 1201-7, 5195-3, 89039-0, SYPH #### [facility] CLIA [id number] [address] [place] [address] [place] CO2 [Moles/Vol] 12 mmol/L Low 21-32 [facility] Comment on above: Order Comment: Speci men Type: BLOOD SPECIMEN Ordering Facility: [facility] Address: [address] [place] [address] Performed By: #### 3 1201-7, 5195-3, 87597-3, SYPH #### [facility] CLIA [id number] [address] [place] [address] [place] Creatinine [Mass/Vol] 0.64 mg/dL Normal 0.51-0.95 [facility] Comment on above: Order Comment: Jon russ Type: BLOOD SPECIMEN Ordering Facility: [facility] Address: [address] [id number] Result Comment: Cleopatra ents receiving either N-Acetylcysteine (NAC) or Metamizole prior to venipuncture, may have falsely depressed results. Performed By: #### 3 1201-7, 5195-3, 93360-8, SYPH #### [facility] CLIA [id number] [address] [place] [address] [place] ESTIMATED GLOMERULAR FILTRATION RATE 124 mL/min/1.73m??? Normal >=60 [facility] Comment on above: Order Comment: Jon russ Type: BLOOD SPECIMEN Ordering Facility: [facility] Address: [address] [place], [place] [id number] Result Comment: Janett mated Glomerular Filtration Rate [...] GFR. Performed By: #### 3 1201-7, 5195-3, 45011-8, SYPH #### [facility] CLIA [id number] [address] [place] [address] [place] Glucose [Mass/Vol] 252 mg/dL High 70-100 [facility] Comment on above: Order Comment: Jon russ Type: BLOOD SPECIMEN Ordering Facility: [facility] Address: [address] [id number] Result Comment: The [place] [employer] (ADA) provides guidance for cutoff [...] Standards of Medical Care in Diabetes 2016, [place] [employer]. Diabetes Care. 2016.39(Suppl 1). Results may be falsely elevated after the administration of Sulfapyridine. Results may be falsely depressed after the administration of Sulfasalazine. Performed By: #### 3 1201-7, 5195-3, 49032-5, SYPH #### [facility] CLIA [id number] [address] [place] [address] [place] Potassium [Moles/Vol] Normal [facility] Comment on above: Order Comment: oJn russ Type: BLOOD SPECIMEN Ordering Facility: [facility] Address: [address] [place] [address] Result Comment: Unab le to assay due to interference from hemolysis. Suggest reorder as clinically indicated. Critical or Urgent Result(s) Called at: 04:33:11 on 02/03/2023 by milly. Called to and read back by: CLOVIS Performed By: #### 3 1201-7, 5195-3, 80076-8, SYPH #### [facility] CLIA [id number] [address] [place] [address] [place] Protein [Mass/Vol] 5.8 g/dL Low 6.0-8.5 [facility] Comment on above: Order Comment: Jon russ Type: BLOOD SPECIMEN Ordering Facility: [facility] Address: [address] [address] Performed By: #### 3 1201-7, 5195-3, 96045-0, SYPH #### [facility] CLIA [id number] [address] [place] [address] [place] Sodium [Moles/Vol] 138 mmol/L Normal 136-145 [facility] Comment on above: Order Comment: Jon russ Type: BLOOD SPECIMEN Ordering Facility: [facility] Address: [address] [address] Performed By: #### 3 1201-7, 5195-3, 20435-1, SYPH #### [facility] CLIA [id number] [address] [place], [place] [address] [place] Urea nitrogen [Mass/Vol] 10 mg/dL Normal - [facility] Comment on above: Order Comment: Speci men Type: BLOOD SPECIMEN Ordering Facility: [facility] Address: [address] [place] [address] Performed By: #### 3 1201-7, 5195-3, 75138-2, SYPH #### [facility] CLIA [id number] [address] [place] [address] [place] Magnesium SerPl-mCncon 02-03 Magnesium [Mass/Vol] 1.8 mg/dL Normal 1.6-2.6 [facility] Comment on above: Order Comment: Speci men Type: BLOOD SPECIMEN Ordering Facility: [facility] Address: [address] [place] [address] Performed By: #### 3 1201-7, 5195-3, 66949-1, SYPH #### [facility] CLIA [id number] [address] [place], [place] [address] [place] Basic metabolic 2000 panelon 02-02-2023 Anion gap [Moles/Vol] 17 mmol/L High -16 [facility] Comment on above: Order Comment: Speci men Type: BLOOD SPECIMEN Ordering Facility: [facility] Address: [address] [place] [address] Performed By: #### 3 1201-7, 5195-3, 05459-8, SYPH #### [facility] CLIA [id number] [address] [place], [place] [address] [place] Calcium [Mass/Vol] 8.0 mg/dL Low 8.5-10.5 [facility] Comment on above: Order Comment: Speci men Type: BLOOD SPECIMEN Ordering Facility: [facility] Address: [address] [place] [address] Performed By: #### 3 1201-7, 5195-3, 40090-2, SYPH #### [facility] CLIA [id number] [address] [place] [address] [place] Chloride [Moles/Vol] 108 mmol/L High 98-107 [facility] Comment on above: Order Comment: Speci men Type: BLOOD SPECIMEN Ordering Facility: [facility] Address: [address] [place] [address] Performed By: #### 3 1201-7, 5195-3, 36474-7, SYPH #### [facility] CLIA [id number] [address] [place] [address] [place] CO2 [Moles/Vol] 13 mmol/L Low 21-32 [facility] Comment on above: Order Comment: Speci men Type: BLOOD SPECIMEN Ordering Facility: [facility] Address: [address] [place] [address] Performed By: #### 3 1201-7, 5195-3, 20722-2, SYPH #### [facility] CLIA [id number] [address] [place] [address] [place] Creatinine [Mass/Vol] 0.69 mg/dL Normal 0.51-0.95 [facility] Comment on above: Order Comment: Speci men Type: BLOOD SPECIMEN Ordering Facility: [facility] Address: [address] [place] [address] Result Comment: Cleopatra ents receiving either N-Acetylcysteine (NAC) or Metamizole prior to venipuncture, may have falsely depressed results. Performed By: #### 3 1201-7, 5195-3, 05523-7, SYPH #### [facility] CLIA [id number] [address] [place] [address] [place] ESTIMATED GLOMERULAR FILTRATION RATE 121 mL/min/1.73m??? Normal >=60 [facility] Comment on above: Order Comment: Speci men Type: BLOOD SPECIMEN Ordering Facility: [facility] Address: [address] [place] [address] Result Comment: Janett mated Glomerular Filtration Rate [...] GFR. Performed By: #### 3 1201-7, 5195-3, 74530-5, SYPH #### [facility] CLIA [id number] [address] [place], [place] [address] [place] Glucose [Mass/Vol] 251 mg/dL High 70-100 [facility] Comment on above: Order Comment: Jon russ Type: BLOOD SPECIMEN Ordering Facility: [facility] Address: [address] [place] [address] Result Comment: The [place] Diabetes Association (ADA) provides guidance for cutoff [...] Standards of Medical Care in Diabetes 2016, [place] [employer]. Diabetes Care. 2016.39(Suppl 1). Results may be falsely elevated after the administration of Sulfapyridine. Results may be falsely depressed after the administration of Sulfasalazine. Performed By: #### 3 1201-7, 5195-3, 28107-3, SYPH #### [facility] CLIA [id number] [address] [place], [place] [address] [place] Potassium [Moles/Vol] 4.4 mmol/L Normal 3.5-5.1 [facility] Comment on above: Order Comment: Jon russ Type: BLOOD SPECIMEN Ordering Facility: [facility] Address: [address] [place] [address] Performed By: #### 3 1201-7, 5195-3, 25381-9, SYPH #### [facility] CLIA [id number] [address] [place] [address] [place] Sodium [Moles/Vol] 138 mmol/L Normal 136-145 [facility] Comment on above: Order Comment: Speci men Type: BLOOD SPECIMEN Ordering Facility: [facility] Address: [address] [place] [address] Performed By: #### 3 1201-7, 5195-3, 09262-1, SYPH #### [facility] CLIA [id number] [address] [place] [address] [place] Urea nitrogen [Mass/Vol] 12 mg/dL Normal 7-26 [facility] Comment on above: Order Comment: Speci men Type: BLOOD SPECIMEN Ordering Facility: [facility] Address: [address] [place] [address] Performed By: #### 3 1201-7, 5195-3, 42595-0, SYPH #### [facility] CLIA [id number] [address] [place] [address] [place] Anion gap [Moles/Vol] 15 mmol/L Normal 5-16 [facility] Comment on above: Order Comment: Speci men Type: BLOOD SPECIMEN Ordering Facility: [facility] Address: [address] [place] [address] Performed By: #### 3 1201-7, 5195-3, 47851-5, SYPH #### [facility] CLIA [id number] [address] [place] [address] [place] Calcium [Mass/Vol] 8.2 mg/dL Low 8.5-10.5 [facility] Comment on above: Order Comment: Speci men Type: BLOOD SPECIMEN Ordering Facility: [facility] Address: [address] [place] [address] Performed By: #### 3 1201-7, 5195-3, 79516-8, SYPH #### [facility] CLIA [id number] [address] [place] [address] [place] Chloride [Moles/Vol] 113 mmol/L High 98-107 [facility] Comment on above: Order Comment: Speci men Type: BLOOD SPECIMEN Ordering Facility: [facility] Address: [address] [address] Performed By: #### 3 1201-7, 5195-3, 01012-7, SYPH #### [facility] CLIA [id number] [address] [place] [address] [place] CO2 [Moles/Vol] 11 mmol/L Low 21-32 [facility] Comment on above: Order Comment: Speci men Type: BLOOD SPECIMEN Ordering Facility: [facility] Address: [address] [place] [address] Performed By: #### 3 1201-7, 5195-3, 87139-9, SYPH #### [facility] CLIA [id number] [address] [place] [address] [place] Creatinine [Mass/Vol] 0.77 mg/dL Normal 0.51-0.95 [facility] Comment on above: Order Comment: Speci men Type: BLOOD SPECIMEN Ordering Facility: [facility] Address: [address] [place] [address] Result Comment: Cleopatra ents receiving either N-Acetylcysteine (NAC) or Metamizole prior to venipuncture, may have falsely depressed results. Performed By: #### 3 1201-7, 5195-3, 16646-9, SYPH #### [facility] CLIA [id number] [address] [place] [address] [place] ESTIMATED GLOMERULAR FILTRATION RATE 108 mL/min/1.73m??? Normal >=60 [facility] Comment on above: Order Comment: Speci men Type: BLOOD SPECIMEN Ordering Facility: [facility] Address: [address] [place] [address] Result Comment: Janett mated Glomerular Filtration Rate [...] GFR. Performed By: #### 3 1201-7, 5195-3, 21856-2, SYPH #### [facility] CLIA [id number] [address] [place], [place] [address] [place] Glucose [Mass/Vol] 253 mg/dL High 70-100 [facility] Comment on above: Order Comment: Jon russ Type: BLOOD SPECIMEN Ordering Facility: [facility] Address: [address] [phone] Result Comment: The [place] Diabetes Association (ADA) provides guidance for cutoff [...] Standards of Medical Care in Diabetes 2016, [place] [employer]. Diabetes Care. 2016.39(Suppl 1). Results may be falsely elevated after the administration of Sulfapyridine. Results may be falsely depressed after the administration of Sulfasalazine. Performed By: #### 3 1201-7, 5195-3, 35391-6, SYPH #### [facility] CLIA [id number] [address] [place] [address] [place] Potassium [Moles/Vol] 4.6 mmol/L Normal 3.5-5.1 [facility] Comment on above: Order Comment: Jon russ Type: BLOOD SPECIMEN Ordering Facility: [facility] Address: [address] [phone] Performed By: #### 3 1201-7, 5195-3, 10219-2, SYPH #### [facility] CLIA [id number] [address] [place] [address] [place] Sodium [Moles/Vol] 139 mmol/L Normal 136-145 [facility] Comment on above: Order Comment: Speci men Type: BLOOD SPECIMEN Ordering Facility: [facility] Address: [address] [address] Performed By: #### 3 1201-7, 5195-3, 64110-2, SYPH #### [facility] CLIA [id number] [address] [place], [place] [address] [place] Urea nitrogen [Mass/Vol] 18 mg/dL Normal 7-26 [facility] Comment on above: Order Comment: Speci men Type: BLOOD SPECIMEN Ordering Facility: [facility] Address: [address] [address] Performed By: #### 3 1201-7, 5195-3, 01935-8, SYPH #### [facility] CLIA [id number] [address] [place] [address] [place] Anion gap [Moles/Vol] 19 mmol/L High 5-16 [facility] Comment on above: Order Comment: Speci men Type: SWAB Ordering Facility: [facility] Address: [address] [address] Performed By: #### 3 6902-5 #### [facility] CLIA [id number] [address] [place] [address] [place] Calcium [Mass/Vol] 8.6 mg/dL Normal 8.5-10.5 [facility] Comment on above: Order Comment: Speci men Type: SWAB Ordering Facility: [facility] Address: [address] Performed By: #### 3 6902-5 #### [facility] CLIA [id number] [address] [place] [address] [place] Chloride [Moles/Vol] 108 mmol/L High 98-107 [facility] Comment on above: Order Comment: Speci men Type: SWAB Ordering Facility: [facility] Address: [address] Performed By: #### 3 6902-5 #### [facility] CLIA [id number] [address] [place] [address] [place] CO2 [Moles/Vol] 9 mmol/L Low 21-32 [facility] Comment on above: Order Comment: Speci men Type: SWAB Ordering Facility: [facility] Address: [address] [address] Result Comment: Crit ical or Urgent Result(s) Called at: 10:32:16 on 02/02/2023 by KPW. Called to and read back by: Billie SALEEM Performed By: #### 3 6902-5 #### [facility] CLIA [id number] [address] [place] [address] [place] Creatinine [Mass/Vol] 0.82 mg/dL Normal 0.51-0.95 [facility] Comment on above: Order Comment: Speci men Type: SWAB Ordering Facility: [facility] Address: [address] [place] [address] Result Comment: Cleopatra ents receiving either N-Acetylcysteine (NAC) or Metamizole prior to venipuncture, may have falsely depressed results. Performed By: #### 3 6902-5 #### [facility] CLIA [id number] [address] [place] [address] [place] [facility] ESTIMATED GLOMERULAR FILTRATION RATE 100 mL/min/1.73m??? Normal >=60 [facility] Comment on above: Order Comment: Speci men Type: SWAB Ordering Facility: [facility] Address: [address] [place] [address] Result Comment: Janett mated Glomerular Filtration Rate [...] GFR. Performed By: #### 3 6902-5 #### [facility] CLIA [id number] [address] [place] [address] [place] Glucose [Mass/Vol] 336 mg/dL High 70-100 [facility] Comment on above: Order Comment: Speci men Type: SWAB Ordering Facility: [facility] Address: [address] [place] [address] Result Comment: The [place] Diabetes Association (ADA) provides guidance for cutoff [...] Standards of Medical Care in Diabetes 2016, [place] [employer]. Diabetes Care. 2016.39(Suppl 1). Results may be falsely elevated after the administration of Sulfapyridine. Results may be falsely depressed after the administration of Sulfasalazine. Performed By: #### 3 6902-5 #### [facility] CLIA [id number] [address] [place] [address] [place] Potassium [Moles/Vol] Normal [facility] Comment on above: Order Comment: Speci men Type: SWAB Ordering Facility: [facility] Address: [address] [place] [address] Result Comment: Unab le to assay due to interference from hemolysis. Suggest reorder as clinically indicated. Spoke to Billie SALEEM Performed By: #### 3 6902-5 #### [facility] CLIA [id number] [address] [place] [address] [place] Sodium [Moles/Vol] 136 mmol/L Normal 136-145 [facility] Comment on above: Order Comment: Speci men Type: SWAB Ordering Facility: [facility] Address: [address] [place] [address] Performed By: #### 3 6902-5 #### [facility] CLIA [id number] [address] [place] [address] [place] Urea nitrogen [Mass/Vol] 19 mg/dL Normal 7-26 [facility] Comment on above: Order Comment: Speci men Type: SWAB Ordering Facility: [facility] Address: [address] [address] Performed By: #### 3 6902-5 #### [facility] CLIA [id number] [address] [place] [address] [place] Anion gap [Moles/Vol] 18 mmol/L High 5-16 [facility] Comment on above: Order Comment: Speci men Type: SWAB Ordering Facility: [facility] Address: [address] [address] Performed By: #### 3 6902-5 #### [facility] CLIA [id number] [address] [place] [address] [place] Calcium [Mass/Vol] 8.6 mg/dL Normal 8.5-10.5 [facility] Comment on above: Order Comment: Speci men Type: SWAB Ordering Facility: [facility] Address: [address] [address] Performed By: #### 3 6902-5 #### [facility] CLIA [id number] [address] [place] [address] [place] Chloride [Moles/Vol] 108 mmol/L High 98-107 [facility] Comment on above: Order Comment: Speci men Type: SWAB Ordering Facility: [facility] Address: [address] [address] Performed By: #### 3 6902-5 #### [facility] CLIA [id number] [address] [place] [address] [place] CO2 [Moles/Vol] 12 mmol/L Low 21-32 [facility] Comment on above: Order Comment: Speci men Type: SWAB Ordering Facility: [facility] Address: [address] [address] Performed By: #### 3 6902-5 #### [facility] CLIA [id number] [address] [place] [address] [place] Creatinine [Mass/Vol] 0.75 mg/dL Normal 0.51-0.95 [facility] Comment on above: Order Comment: Jon russ Type: SWAB Ordering Facility: [facility] Address: [address] [address] Result Comment: Cleopatra ents receiving either N-Acetylcysteine (NAC) or Metamizole prior to venipuncture, may have falsely depressed results. Performed By: #### 3 6902-5 #### [facility] CLIA [id number] [address] [place] [address] [place] ESTIMATED GLOMERULAR FILTRATION RATE 111 mL/min/1.73m??? Normal >=60 [facility] Comment on above: Order Comment: Jon russ Type: SWAB Ordering Facility: [facility] Address: [address] [place] [address] Result Comment: Janett mated Glomerular Filtration Rate [...] GFR. Performed By: #### 3 6902-5 #### [facility] CLIA [id number] [address] [place] [address] [place] Glucose [Mass/Vol] 421 mg/dL High 70-100 [facility] Comment on above: Order Comment: Jon russ Type: SWAB Ordering Facility: [facility] Address: [address] [address] Result Comment: The [place] Diabetes Association (ADA) provides guidance for cutoff [...] Standards of Medical Care in Diabetes 2016, [place] [employer]. Diabetes Care. 2016.39(Suppl 1). Results may be falsely elevated after the administration of Sulfapyridine. Results may be falsely depressed after the administration of Sulfasalazine. Performed By: #### 3 6902-5 #### [facility] CLIA [id number] [address] [place] [address] [place] Potassium [Moles/Vol] 4.8 mmol/L Normal 3.5-5.1 [facility] Comment on above: Order Comment: Speci men Type: SWAB Ordering Facility: [facility] Address: [address] [place] [address] Performed By: #### 3 6902-5 #### [facility] CLIA [id number] [address] [place] [address] [place] Sodium [Moles/Vol] 138 mmol/L Normal 136-145 [facility] Comment on above: Order Comment: Speci men Type: SWAB Ordering Facility: [facility] Address: [address] [place] [address] Performed By: #### 3 6902-5 #### [facility] CLIA [id number] [address] [place] [address] [place] Urea nitrogen [Mass/Vol] 20 mg/dL Normal 7-26 [facility] Comment on above: Order Comment: Speci men Type: SWAB Ordering Facility: [facility] Address: [address] [place] [address] Performed By: #### 3 6902-5 #### [facility] CLIA [id number] [address] [place] [address] [place] CBC W Auto Differential pane l (Bld)on 02-02-2023 Basophils (Bld) [#/Vol] 0.03 10*3/uL Normal <0.11 [facility] Comment on above: Order Comment: Speci men Type: BLOOD SPECIMEN Ordering Facility: [facility] Address: [address] [address] Performed By: #### 3 1201-7, 5-3, 21829-8, SYPH #### [facility] CLIA [id number] [address] [place] [address] [place] Basophils/100 WBC (Bld) 0.1 % Normal [facility] Comment on above: Order Comment: Speci men Type: BLOOD SPECIMEN Ordering Facility: [facility] Address: [address] [address] Performed By: #### 3 1201-7, 5-3, 71786-8, SYPH #### [facility] CLIA [id number] [address] [place] [address] [place] Differential cell count method Nom (Bld) Auto Normal [facility] Comment on above: Order Comment: Speci men Type: BLOOD SPECIMEN Ordering Facility: [facility] Address: [address] [address] Performed By: #### 3 1201-7, 5194-3, 87520-5, SYPH #### [facility] CLIA [id number] [address] [place] [address] [place] Eosinophils (Bld) [#/Vol] 10*3/uL Normal <0.46 [facility] Comment on above: Order Comment: Speci men Type: BLOOD SPECIMEN Ordering Facility: [facility] Address: [address] [address] Performed By: #### 3 1201-7, 5194-3, 84827-5, SYPH #### [facility] CLIA [id number] [address] [place] [address] [place] Eosinophils/100 WBC (Bld) 0.0 % Normal [facility] Comment on above: Order Comment: Speci men Type: BLOOD SPECIMEN Ordering Facility: [facility] Address: [address] [address] Performed By: #### 3 1201-7, 5-3, 43461-6, SYPH #### [facility] CLIA [id number] [address] [place] [address] [place] Erythrocyte distribution width (RBC) [Ratio] 14.0 % Normal 11.5-15.0 [facility] Comment on above: Order Comment: Speci men Type: BLOOD SPECIMEN Ordering Facility: [facility] Address: [address] [place] [address] Performed By: #### 3 1201-7, 5194-3, , SYPH #### [facility] CLIA [id number] [address] [place] [address] [place] Hematocrit (Bld) [Volume fraction] 33.8 % Low 36.0-46.0 [facility] Comment on above: Order Comment: Speci men Type: BLOOD SPECIMEN Ordering Facility: [facility] Address: [address] [place] [address] Performed By: #### 3 1201-7, 5194-3, , SYPH #### [facility] CLIA [id number] [address] [place] [address] [place] Hemoglobin (Bld) [Mass/Vol] 10.8 g/dL Low 11.5-15.5 [facility] Comment on above: Order Comment: Speci men Type: BLOOD SPECIMEN Ordering Facility: [facility] Address: [address] [place] [address] Performed By: #### 3 1201-7, 5194-3, , SYPH #### [facility] CLIA [id number] [address] [place] [address] [place] Immature granulocytes (Bld) [#/Vol] 0.19 10*3/uL High <0.10 [facility] Comment on above: Order Comment: Speci men Type: BLOOD SPECIMEN Ordering Facility: [facility] Address: [address] [place] [address] Performed By: #### 3 1201-7, 519-3, 25601-2, SYPH #### [facility] CLIA [id number] [address] [place] [address] [place] Immature granulocytes/100 WBC (Bld) 0.9 % Normal [facility] Comment on above: Order Comment: Speci men Type: BLOOD SPECIMEN Ordering Facility: [facility] Address: [address] [place] [address] Performed By: #### 3 1201-7, 5195-3, 00412-3, SYPH #### [facility] CLIA [id number] [address] [place] [address] [place] Lymphocytes (Bld) [#/Vol] 2.41 10*3/uL Normal 1.00-4.00 [facility] Comment on above: Order Comment: Speci men Type: BLOOD SPECIMEN Ordering Facility: [facility] Address: [address] [place] [address] Performed By: #### 3 1201-7, 5195-3, 92034-8, SYPH #### [facility] CLIA [id number] [address] [place] [address] [place] Lymphocytes/100 WBC (Bld) 11.6 % Normal [facility] Comment on above: Order Comment: Speci men Type: BLOOD SPECIMEN Ordering Facility: [facility] Address: [address] [place] [address] Performed By: #### 3 1201-7, 5195-3, 44666-1, SYPH #### [facility] CLIA [id number] [address] [place] [address] [place] MCH (RBC) [Entitic mass] 29.1 pg Normal 26.0-34.0 [facility] Comment on above: Order Comment: Speci men Type: BLOOD SPECIMEN Ordering Facility: [facility] Address: [address] [place] [address] Performed By: #### 3 1201-7, 5195-3, 56393-4, SYPH #### [facility] CLIA [id number] [address] [place] [address] [place] MCHC (RBC) [Mass/Vol] 32.0 g/dL Normal 30.5-36.0 [facility] Comment on above: Order Comment: Speci men Type: BLOOD SPECIMEN Ordering Facility: [facility] Address: [address] Performed By: #### 3 1201-7, 5195-3, 48783-2, SYPH #### [facility] CLIA [id number] [address] [place] [address] [place] MCV (RBC) [Entitic vol] 91.1 fL Normal 80.0-100.0 [facility] Comment on above: Order Comment: Speci men Type: BLOOD SPECIMEN Ordering Facility: [facility] Address: [address] Performed By: #### 3 1201-7, 5195-3, 50986-7, SYPH #### [facility] CLIA [id number] [address] [place] [address] [place] Monocytes (Bld) [#/Vol] 0.93 10*3/uL High <0.87 [facility] Comment on above: Order Comment: Speci men Type: BLOOD SPECIMEN Ordering Facility: [facility] Address: Russ WHIT[address] Performed By: #### 3 1201-7, 5195-3, 39849-4, SYPH #### [facility] CLIA [id number] [address] [place] [address] [place] Monocytes/100 WBC (Bld) 4.5 % Normal [facility] Comment on above: Order Comment: Speci men Type: BLOOD SPECIMEN Ordering Facility: [facility] Address: [address] Performed By: #### 3 1201-7, 5195-3, 95847-5, SYPH #### [facility] CLIA [id number] [address] [place] [address] [place] Neutrophils (Bld) [#/Vol] 17.17 10*3/uL High 1.45-7.50 [facility] Comment on above: Order Comment: Speci men Type: BLOOD SPECIMEN Ordering Facility: [facility] Address: [address] [address] Performed By: #### 3 1201-7, 5-3, 82949-6, SYPH #### [facility] CLIA [id number] [address] [place] [address] [place] Neutrophils/100 WBC (Bld) 82.9 % Normal [facility] Comment on above: Order Comment: Speci men Type: BLOOD SPECIMEN Ordering Facility: [facility] Address: [address] [address] Performed By: #### 3 1201-7, 5-3, 25793-6, SYPH #### [facility] CLIA [id number] [address] [place] [address] [place] Nucleated RBC (Bld) [#/Vol] 10*3/uL Normal <0.01 [facility] Comment on above: Order Comment: Speci men Type: BLOOD SPECIMEN Ordering Facility: [facility] Address: [address] [address] Performed By: #### 3 1201-7, 5194-3, 65920-5, SYPH #### [facility] CLIA [id number] [address] [place] [address] [place] Nucleated RBC/100 WBC (Bld) [Ratio] 0.0 /[address] [facility] Comment on above: Order Comment: Speci men Type: BLOOD SPECIMEN Ordering Facility: [facility] Address: [address] Performed By: #### 3 1201-7, 5195-3, 75406-6, SYPH #### [facility] CLIA [id number] [address] [place] [address] [place] Platelet mean volume (Bld) [Entitic vol] 12.0 fL Normal 9.0-12.7 [facility] Comment on above: Order Comment: Speci men Type: BLOOD SPECIMEN Ordering Facility: [facility] Address: [address] [place] [address] Performed By: #### 3 1201-7, 5195-3, 07749-1, SYPH #### [facility] CLIA [id number] [address] [place], [place] [address] [place] Platelets (Bld) [#/Vol] 164 10*3/uL Normal 150-400 [facility] Comment on above: Order Comment: Speci men Type: BLOOD SPECIMEN Ordering Facility: [facility] Address: [address] Performed By: #### 3 1201-7, 5195-3, 31599-5, SYPH #### [facility] CLIA [id number] [address] [place], [place] [address] [place] RBC (Bld) [#/Vol] 3.71 10*6/uL Low 3.90-5.20 [facility] Comment on above: Order Comment: Speci men Type: BLOOD SPECIMEN Ordering Facility: [facility] Address: [address] Performed By: #### 3 1201-7, 5195-3, 97562-3, SYPH #### [facility] CLIA [id number] [address] [place], [place] [address] [facility] [place] WBC (Bld) [#/Vol] 20.73 10*3/uL High 3.70-11.00 [facility] Comment on above: Order Comment: Speci men Type: BLOOD SPECIMEN Ordering Facility: [facility] Address: [address] [id number] Performed By: #### 3 1201-7, 5195-3, 38514-5, SYPH #### [facility] CLIA [id number] [address] [place], [place] [address] [facility] [place] Gas and Carbon monoxide pane l (BldV)on 02-02-2023 BASE DEFICIT, VENOUS -16 mmol/L Low -2-0 [facility] Comment on above: Order Comment: Speci men Type: SWAB Ordering Facility: [facility] Address: [address] [place], [place] [id number] Performed By: #### 3 6902-5 #### [facility] CLIA [id number] [address] [place] [address] [place] Body temperature 98.6 [degF] Normal [facility] Comment on above: Order Comment: Speci men Type: SWAB Ordering Facility: [facility] Address: [address] [place] [address] Performed By: #### 3 6902-5 #### [facility] CLIA [id number] [address] [place] [address] [place] Calcium.ionized (Bld) [Mass/Vol] 1.14 mmol/L Normal 1.08-1.30 [facility] Comment on above: Order Comment: Speci men Type: SWAB Ordering Facility: [facility] Address: [address] [place] [address] Performed By: #### 3 6902-5 #### [facility] CLIA [id number] [address] [place] [address] [place] Carboxyhemoglobin (BldV) [Mass fraction] 1.0 % Normal 0.0-2.0 [facility] Comment on above: Order Comment: Speci men Type: SWAB Ordering Facility: [facility] Address: [address] [place] [address] Result Comment: Carb oxyhemoglobin Reference Range for Smokers: 2.0-8.0% Performed By: #### 3 6902-5 #### [facility] CLIA [id number] [address] [place] [address] [place] CO2 (BldV) [Partial pressure] 22 mm[Hg] Low 42-55 [facility] Comment on above: Order Comment: Speci men Type: SWAB Ordering Facility: [facility] Address: [address] [place] [address] Performed By: #### 3 6902-5 #### [facility] CLIA [id number] [address] [place] [address] [place] Glucose [Mass/Vol] 335 mg/dL High 60-105 [facility] Comment on above: Order Comment: Speci men Type: SWAB Ordering Facility: [facility] Address: [address] [address] Performed By: #### 3 6902-5 #### [facility] CLIA [id number] [address] [place] [address] [place] HCO3 (Bld) [Moles/Vol] 9 mmol/L Low 24-28 [facility] Comment on above: Order Comment: Speci men Type: SWAB Ordering Facility: [facility] Address: [address] [address] Performed By: #### 3 6902-5 #### [facility] CLIA [id number] [address] [place] [address] [place] Hemoglobin (Bld) [Mass/Vol] 13.1 g/dL Normal 11.5-15.5 [facility] Comment on above: Order Comment: Speci men Type: SWAB Ordering Facility: [facility] Address: [address] Performed By: #### 3 6902-5 #### [facility] CLIA [id number] [address] [place] [address] [place] Lactate [Moles/Vol] 1.8 mmol/L Normal 0.5-2.2 [facility] Comment on above: Order Comment: Speci men Type: SWAB Ordering Facility: [facility] Address: [address] Performed By: #### 3 6902-5 #### [facility] CLIA [id number] [address] [place] [address] [place] Methemoglobin (Bld) [Mass fraction] 0.3 % Normal 0.0-1.5 [facility] Comment on above: Order Comment: Speci men Type: SWAB Ordering Facility: [facility] Address: [address] Performed By: #### 3 6902-5 #### [facility] CLIA [id number] [address] [place] [address] [place] O2 THERAPY RA=Room Air Normal [facility] Comment on above: Order Comment: Speci men Type: SWAB Ordering Facility: [facility] Address: [address] [address] Performed By: #### 3 6902-5 #### [facility] CLIA [id number] [address] [place] [address] [place] Oxygen (BldV) [Partial pressure] 93 mm[Hg] High 35-45 [facility] Comment on above: Order Comment: Speci men Type: SWAB Ordering Facility: [facility] Address: [address] [address] Performed By: #### 3 6902-5 #### [facility] IA [id number] [address] [place] [address] [place] Oxyhemoglobin (BldV) [Mass fraction] 94 % Normal 4-98 [facility] Comment on above: Order Comment: Speci men Type: SWAB Ordering Facility: [facility] Address: [address] [address] Performed By: #### 3 6902-5 #### [facility] IA [id number] [address] [place] [address] [place] pH (BldV) 7.24 [pH] Low 7.32-7.42 [facility] Comment on above: Order Comment: Speci men Type: SWAB Ordering Facility: [facility] Address: [address] [address] Performed By: #### 3 6902-5 #### [facility] CLIA [id number] [address] [place] [address] [place] Potassium [Moles/Vol] 5.3 mmol/L Normal 2.5-6.0 [facility] Comment on above: Order Comment: Speci men Type: SWAB Ordering Facility: [facility] Address: [address] [address] Performed By: #### 3 6902-5 #### [facility] CLIA [id number] [address] [place], [place] [address] [place] Sodium [Moles/Vol] 131 mmol/L Low 136-144 [facility] Comment on above: Order Comment: Speci men Type: SWAB Ordering Facility: [facility] Address: [facility] [place] [address] Performed By: #### 3 6902-5 #### [facility] CLIA [id number] [address] [id number] [place] HISTORY PHYSICALon HISTORY PHYSICAL HNO ID: [id number] Author: Yimi Leroy APRN.SUPERVISOR [employer] Service: Critical Care Author Type: Nurse Practitioner Type: HANDP Filed: 02/02/2023 9:48 AM Note Text: [facility] PULMON[facility]ITICAL [facility]ARE SERVICE DATE: February 02, 2023 SERVICE TIME: 919 Consulting Doctor: Dr Diana CHIEF COMPLAINT: DKA HPI: This is a 27-year-old white female who presented 2 days ago on 01/31 secondary to nausea and vomiting at home. Patient has a known history of diabetic gastroparesis. She follows [facility]. She was admitted to [place]. Unfortunately she has not been tolerating p.o. [...] pump (JUSTIN (more content not included)... Normal [facility] KETONES/ACETONE/BHBon 2022 Beta hydroxybutyrate [Moles/Vol] >6.00 High 0.02-0.27 [facility] Comment on above: Order Comment: Speci men Type: SWAB Ordering Facility: [facility] Address: [address] [place] [address] [place] [address] Result Comment: Rudolph ortiz ketone levels will vary depending on several factors (for example, food intake, alcohol intake and conditions such as ketoacidosis). Patients should be fasting 12 hours prior to collection. Patient samples with high levels of M-Protein (i.e. Gammopathy) may affect the accuracy of this assay. Performed By: #### 3 6902-5 #### [facility] CLIA [id number] [address] [place] [address] [place] Beta hydroxybutyrate [Moles/Vol] 5.70 mmol/L High 0.02-0.27 [facility] Comment on above: Order Comment: Jon russ Type: SWAB Ordering Facility: [facility] Address: [address] [place] [address] Result Comment: Bloo d ketone levels will vary depending on several factors (for example, food intake, alcohol intake and conditions such as ketoacidosis). Patients should be fasting 12 hours prior to collection. Patient samples with high levels of M-Protein (i.e. Gammopathy) may affect the accuracy of this assay. Performed By: #### 3 6902-5 #### [facility] CLIA [id number] [address] [place] [address] [place] Magnesium SerPl-mCncon 02-02 Magnesium [Mass/Vol] 2.3 mg/dL Normal 1.6-2.6 [facility] Comment on above: Order Comment: Jon russ Type: SWAB Ordering Facility: [facility] Address: [address] [place] [address] Performed By: #### 3 6902-5 #### [facility] CLIA [id number] [address] [place] [address] [place] Procalcitonin SerPl-mCncon 0 02-02-2023 Procalcitonin [Mass/Vol] 0.33 ng/mL Normal 0.00-0.50 [facility] Comment on above: Order Comment: Jon russ Type: BLOOD SPECIMEN Ordering Facility: [facility] Address: [address] [place] [address] Result Comment: PCT Concentration Interpretation PCT <=0.1 [...] shock. Performed By: #### 3 1201-7, 5195-3, 64838-1, SYPH #### [facility] CLIA [id number] [address] [place] [address] [place] Basic metabolic 2000 panelon 02-01-2023 Anion gap [Moles/Vol] 16 mmol/L Normal 5-16 [facility] Comment on above: Order Comment: Speci men Type: SWAB Ordering Facility: [facility] Address: [address] [place] [address] Performed By: #### 3 6902-5 #### [facility] CLIA [id number] [address] [place] [address] [place] Calcium [Mass/Vol] 8.4 mg/dL Low 8.5-10.5 [facility] Comment on above: Order Comment: Speci men Type: SWAB Ordering Facility: [facility] Address: [address] [place] [address] Performed By: #### 3 6902-5 #### [facility] CLIA [id number] [address] [place] [address] [place] Chloride [Moles/Vol] 108 mmol/L High 98-107 [facility] Comment on above: Order Comment: Speci men Type: SWAB Ordering Facility: [facility] Address: [address] [place] [address] Performed By: #### 3 6902-5 #### [facility] CLIA [id number] [address] [place] [address] [place] CO2 [Moles/Vol] 15 mmol/L Low 21-32 [facility] Comment on above: Order Comment: Speci men Type: SWAB Ordering Facility: [facility] Address: [address] [address] Performed By: #### 3 6902-5 #### [facility] CLIA [id number] [address] [place] [address] [place] Creatinine [Mass/Vol] 0.89 mg/dL Normal 0.51-0.95 [facility] Comment on above: Order Comment: Speci men Type: SWAB Ordering Facility: [facility] Address: [address] [place] [address] Result Comment: Cleopatra ents receiving either N-Acetylcysteine (NAC) or Metamizole prior to venipuncture, may have falsely depressed results. Performed By: #### 3 6902-5 #### [facility] CLIA [id number] [address] [place] [address] [place] ESTIMATED GLOMERULAR FILTRATION RATE 91 mL/min/1.73m??? Normal >=60 [facility] Comment on above: Order Comment: Speci men Type: SWAB Ordering Facility: [facility] Address: [address] [address] Result Comment: Janett mated Glomerular Filtration Rate [...] GFR. Performed By: #### 3 6902-5 #### [facility] CLIA [id number] [address] [place] [address] [place] Glucose [Mass/Vol] 351 mg/dL High 70-100 [facility] Comment on above: Order Comment: Belindai men Type: SWAB Ordering Facility: [facility] Address: [address] [place] [address] Result Comment: The [place] Diabetes Association (ADA) provides guidance for cutoff [...] Standards of Medical Care in Diabetes 2016, [place] [employer]. Diabetes Care. 2016.39(Suppl 1). Results may be falsely elevated after the administration of Sulfapyridine. Results may be falsely depressed after the administration of Sulfasalazine. Performed By: #### 3 6902-5 #### [facility] CLIA [id number] [address] [place] [address] [place] Potassium [Moles/Vol] 4.0 mmol/L Normal 3.5-5.1 [facility] Comment on above: Order Comment: Speci men Type: SWAB Ordering Facility: [facility] Address: [address] [place] [address] Performed By: #### 3 6902-5 #### [facility] CLIA [id number] [address] [place] [address] [place] Sodium [Moles/Vol] 139 mmol/L Normal 136-145 [facility] Comment on above: Order Comment: Speci men Type: SWAB Ordering Facility: [facility] Address: [address] [place] [address] Performed By: #### 3 6902-5 #### [facility] CLIA [id number] [address] [place] [address] [place] Urea nitrogen [Mass/Vol] 19 mg/dL Normal 7-26 [facility] Comment on above: Order Comment: Speci men Type: SWAB Ordering Facility: [facility] Address: [address] [place] [address] Performed By: #### 3 6902-5 #### [facility] CLIA [id number] [address] [place] [address] [place] CBC panel Auto (Bld)on 02-01 Erythrocyte distribution width (RBC) [Ratio] 13.3 % Normal 11.5-15.0 [facility] Comment on above: Order Comment: Speci men Type: BLOOD SPECIMENOrdering Facility: [facility] Address: [address] [place] [address] Performed By: #### L [id number] #### [facility] CLIA [id number] [address] [place], [place] [address] [place] Hematocrit (Bld) [Volume fraction] 38.4 % Normal 36.0-46.0 [facility] Comment on above: Order Comment: Speci men Type: BLOOD SPECIMENOrdering Facility: [facility] Address: [address] [address] Performed By: #### L [id number] #### [facility] CLIA [id number] [address] [place] [address] [place] Hemoglobin (Bld) [Mass/Vol] 12.6 g/dL Normal 11.5-15.5 [facility] Comment on above: Order Comment: Speci men Type: BLOOD SPECIMENOrdering Facility: [facility] Address: [address] Performed By: #### L [id number] #### [facility] CLIA [id number] [address] [place] [address] [place] MCH (RBC) [Entitic mass] 29.2 pg Normal 26.0-34.0 [facility] Comment on above: Order Comment: Speci men Type: BLOOD SPECIMENOrdering Facility: [facility] Address: [address] Performed By: #### L [id number] #### [facility] CLIA [id number] [address] [place] [address] [place] MCHC (RBC) [Mass/Vol] 32.8 g/dL Normal 30.5-36.0 [facility] Comment on above: Order Comment: Speci men Type: BLOOD SPECIMENOrdering Facility: [facility] Address: [address] Performed By: #### L [id number] #### [facility] CLIA [id number] [address] [place] [address] [place] MCV (RBC) [Entitic vol] 88.9 fL Normal 80.0-100.0 [facility] Comment on above: Order Comment: Speci men Type: BLOOD SPECIMENOrdering Facility: [facility] Address: [address] Performed By: #### L [id number] #### [facility] CLIA [id number] [address] [place] [address] [place] Nucleated RBC (Bld) [#/Vol] 10*3/uL Normal <0.01 [facility] Comment on above: Order Comment: Speci men Type: BLOOD SPECIMENOrdering Facility: [facility] Address: [address] [place] [address] Performed By: #### L [id number] #### [facility] CLIA [id number] [address] [place] [address] [place] Platelet mean volume (Bld) [Entitic vol] 13.5 fL High 9.0-12.7 [facility] Comment on above: Order Comment: Speci men Type: BLOOD SPECIMENOrdering Facility: [facility] Address: [address] [place] [address] Performed By: #### L [id number] #### [facility] CLIA [id number] [address] [place] [address] [place] Platelets (Bld) [#/Vol] 139 10*3/uL Low 150-400 [facility] Comment on above: Order Comment: Speci men Type: BLOOD SPECIMENOrdering Facility: [facility] Address: [address] [place] [address] Result Comment: No c lot detected. Performed By: #### L [id number] #### [facility] CLIA [id number] [address] [place] [address] [place] RBC (Bld) [#/Vol] 4.32 10*6/uL Normal 3.90-5.20 [facility] Comment on above: Order Comment: Speci men Type: BLOOD SPECIMENOrdering Facility: [facility] Address: [address] [place] [address] Performed By: #### L [id number] #### [facility] CLIA [id number] [address] [place] [address] [place] WBC (Bld) [#/Vol] 16.97 10*3/uL High 3.70-11.00 [facility] Comment on above: Order Comment: Speci men Type: BLOOD SPECIMENOrdering Facility: [facility] Address: [place] [address] Performed By: #### L [id number] #### [facility] [facility] CLIA [id number] [address] [place] [address] [place] CNPNon 02-01-2023 CNPN Telephone (FAMPOR) KATHLEEN VILLA ([id number]) 1995 F CHT Date Time Provider Department [...] (BAQSIMI) 3 mg/actuation nasal spray Use 1 [place] in the nose as needed for low [...] irregularity [N92.6] (more content not included)... Normal [facility] Comprehensive metabolic 2000 panelon 02-01-2023 Albumin [Mass/Vol] 3.8 g/dL Normal 3.2-5.0 [facility] Comment on above: Order Comment: Jon russ Type: BLOOD SPECIMENOrdering Facility: [facility] Address: [address] [place] [address] Performed By: #### L [id number] #### [facility] CLIA [id number] [address] [place] [address] [place] ALP [Catalytic activity/Vol] 84 U/L Normal 45-117 [facility] Comment on above: Order Comment: Jon russ Type: BLOOD SPECIMENOrdering Facility: [facility] Address: [address] [place] [address] Performed By: #### L [id number] #### [facility] CLIA [id number] [address] [place] [address] [place] ALT [Catalytic activity/Vol] 19 U/L Normal 13-61 [facility] Comment on above: Order Comment: Jon russ Type: BLOOD SPECIMENOrdering Facility: [facility] Address: [address] [place] [address] Result Comment: Resu lts may be falsely depressed after the administration of Sulfasalazine and/or Sulfapyridine. Performed By: #### L [id number] #### [facility] CLIA [id number] [address] [place] [address] [place] Anion gap [Moles/Vol] 16 mmol/L Normal 5-16 [facility] Comment on above: Order Comment: Speci men Type: BLOOD SPECIMENOrdering Facility: [facility] Address: [address] [address] Performed By: #### L [id number] #### [facility] CLIA [id number] [address] [place] [address] [place] AST [Catalytic activity/Vol] 15 U/L Normal 8-34 [facility] Comment on above: Order Comment: Speci men Type: BLOOD SPECIMENOrdering Facility: [facility] Address: [address] [address] Result Comment: Resu lts may be falsely depressed after the administration of Sulfasalazine and/or Sulfapyridine. Performed By: #### L [id number] #### [facility] CLIA [id number] [address] [place] [address] [place] Bilirubin [Mass/Vol] 0.7 mg/dL Normal 0.2-1.0 [facility] Comment on above: Order Comment: Speci men Type: BLOOD SPECIMENOrdering Facility: [facility] Address: [address] [address] Performed By: #### L [id number] #### [facility] CLIA [id number] [address] [place] [address] [place] Calcium [Mass/Vol] 8.7 mg/dL Normal 8.5-10.5 [facility] Comment on above: Order Comment: Speci men Type: BLOOD SPECIMENOrdering Facility: [facility] Address: [address] [address] Performed By: #### L [id number] #### [facility] CLIA [id number] [address] [place] [address] [place] Chloride [Moles/Vol] 110 mmol/L High 98-107 [facility] Comment on above: Order Comment: Speci men Type: BLOOD SPECIMENOrdering Facility: [facility] Address: [address] [address] Performed By: #### L [id number] #### [facility] CLIA [id number] [address] [place] [address] [place] CO2 [Moles/Vol] 15 mmol/L Low 21-32 [facility] Comment on above: Order Comment: Speci men Type: BLOOD SPECIMENOrdering Facility: [facility] Address: [address] [place] [address] Performed By: #### L [id number] #### [facility] CLIA [id number] [address] [place] [address] [place] Creatinine [Mass/Vol] 0.66 mg/dL Normal 0.51-0.95 [facility] Comment on above: Order Comment: Speci men Type: BLOOD SPECIMENOrdering Facility: [facility] Address: [address] [place] [address] Result Comment: Cleopatra ents receiving either N-Acetylcysteine (NAC) or Metamizole prior to venipuncture, may have falsely depressed results. Performed By: #### L [id number] #### [facility] CLIA [id number] [address] [place] [address] [place] ESTIMATED GLOMERULAR FILTRATION RATE 123 mL/min/1.73m??? Normal >=60 [facility] Comment on above: Order Comment: Speci men Type: BLOOD SPECIMENOrdering Facility: [facility] Address: [address] [place] [address] Result Comment: Janett mated Glomerular Filtration Rate [...] reflect actual GFR. Performed By: #### L [id number] #### [facility] CLIA [id number] [address] [place] [address] [place] Glucose [Mass/Vol] 311 mg/dL High 70-100 [facility] Comment on above: Order Comment: Speci men Type: BLOOD SPECIMENOrdering Facility: [facility] Address: [address] [place] [address] Result Comment: The [place] Diabetes Association (ADA) provides guidance for cutoff [...] Standards of Medical Care in Diabetes 2016, [place] [employer]. Diabetes Care. 2016.39(Suppl 1). Results may be falsely elevated after the administration of Sulfapyridine. Results may be falsely depressed after the administration of Sulfasalazine. Performed By: #### L [id number] #### [facility] CLIA [id number] [address] [place] [address] [place] Potassium [Moles/Vol] 4.4 mmol/L Normal 3.5-5.1 [facility] Comment on above: Order Comment: Speci men Type: BLOOD SPECIMENOrdering Facility: [facility] Address: [address] [place] [address] Performed By: #### L [id number] #### [facility] CLIA [id number] [address] [place] [address] [place] Protein [Mass/Vol] 6.5 g/dL Normal 6.0-8.5 [facility] Comment on above: Order Comment: Speci men Type: BLOOD SPECIMENOrdering Facility: [facility] Address: [address] [place] [address] Performed By: #### L [id number] #### [facility] CLIA [id number] [address] [place] [address] [place] Sodium [Moles/Vol] 141 mmol/L Normal 136-145 [facility] Comment on above: Order Comment: Speci men Type: BLOOD SPECIMENOrdering Facility: [facility] Address: [place] [address] Performed By: #### L [id number] #### [facility] CLIA [id number] [address] [place], [place] [id number] [facility] Urea nitrogen [Mass/Vol] 15 mg/dL Normal 7-26 [facility] Comment on above: Order Comment: Speci men Type: BLOOD SPECIMENOrdering Facility: [facility] Address: [address] [place] [address] Performed By: #### L [id number] #### [facility] CLIA [id number] [address] [place], [place] [address] [facility] ED PROV NOTEon 02-01-2023 ED PROV NOTE HNO ID: [id number] Author: Adryan Alexis PA-C Service: ? Author Type: Physician Cut Roll Machine Operator Type: ED Provider Notes Filed: 01/31/2023 11:39 [...] SEPSIS LACT (more content not included)... Normal [facility] HISTORY PHYSICALon HISTORY PHYSICAL HNO ID: [id number] Author: Camilo Centeno DO Service: Hospital Medicine Author Type: Physician Type: HANDP Filed: 02/01/2023 8:08 AM Note Text: HISTORY AND PHYSICAL SERVICE DATE: 01/31/2023 SERVICE TIME: 11:46 PM PRIMARY CARE PHYSICIAN: Vivi Smith MD Subjective CHIEF COMPLAINT: Abdominal pain, nausea, and vomiting HPI: Patient is a 27-year-old female who presented to the [facility] emergency department earlier this evening for further [...] (BAQSIMI) 3 mg/actuation nasal spray Use 1 [place] in the nose as needed for low [...] or rhonchi (more content not included)... Normal [facility] Magnesium SerPl-mCncon 02-01 Magnesium [Mass/Vol] 1.7 mg/dL Normal 1.6-2.6 [facility] Comment on above: Order Comment: Speci men Type: BLOOD SPECIMENOrdering Facility: [facility] Address: [address] [place], [place] [address] [address] Performed By: #### L [id number] #### [facility] CLIA [id number] [facility] [place] [address] [place] NURSING PROGon 02-01-2023 NURSING PROG HNO ID: [id number] Author: Avani Seo RN Service: Nursing Author [...] error. It must be returned to the ethylene oxide panelboard operator. It is now disconnected and she will now take sliding scale insulin for coverage. Normal [facility] Urinalysis complete panel (U )on 02-01-2023 Bacteria LM.HPF (Urine sed) [#/Area] Rare Abnormal None Seen [facility] Comment on above: Order Comment: Speci men Type: URINE SPECIMENOrdering Facility: [facility] Address: [address] [place] [address] Performed By: #### L [id number] #### [facility] CLIA [id number] [facility] [place] [address] [place] Bilirubin Ql (U) Negative Normal Negative [facility] Comment on above: Order Comment: Speci men Type: URINE SPECIMENOrdering Facility: [facility] Address: [address] [address] Performed By: #### L [id number] #### [facility] CLIA [id number] [address] [place] [address] [place] Clarity (Unsp spec) Clear Normal Clear [facility] Comment on above: Order Comment: Speci men Type: URINE SPECIMENOrdering Facility: [facility] Address: [address] [place] [address] Performed By: #### L [id number] #### [facility] CLIA [id number] [address] [place] [address] [place] Color (U) Yellow Normal Yellow [facility] Comment on above: Order Comment: Speci men Type: URINE SPECIMENOrdering Facility: [facility] Address: [address] [place] [address] Performed By: #### L [id number] #### [facility] CLIA [id number] [address] [place] [address] [place] Epithelial cells LM.HPF (Urine sed) [#/Area] Few Normal [facility] Comment on above: Order Comment: Speci men Type: URINE SPECIMENOrdering Facility: [facility] Address: [address] [place] [address] Performed By: #### L [id number] #### [facility] CLIA [id number] [address] [place] [address] [place] Glucose Test strip (U) [Mass/Vol] 3+ Abnormal Negative [facility] Comment on above: Order Comment: Speci men Type: URINE SPECIMENOrdering Facility: [facility] Address: [address] [place] [address] Performed By: #### L [id number] #### [facility] CLIA [id number] [address] [place] [address] [place] Hemoglobin Ql (U) 2+ Abnormal Negative [facility] Comment on above: Order Comment: Speci men Type: URINE SPECIMENOrdering Facility: [facility] Address: [address] [place] [address] Performed By: #### L [id number] #### [facility] CLIA [id number] [address] [place] [address] [place] Ketones Ql (U) 2+ Abnormal Negative [facility] Comment on above: Order Comment: Speci men Type: URINE SPECIMENOrdering Facility: [facility] Address: [address] [address] Performed By: #### L [id number] #### [facility] CLIA [id number] [address] [place] [address] [place] Leukocyte esterase Test strip Ql (U) Negative Normal Negative [facility] Comment on above: Order Comment: Speci men Type: URINE SPECIMENOrdering Facility: [facility] Address: [address] [place] [address] Performed By: #### L [id number] #### [facility] CLIA [id number] [address] [place] [address] [place] Nitrite Ql (U) Negative Normal Negative [facility] Comment on above: Order Comment: Speci men Type: URINE SPECIMENOrdering Facility: [facility] Address: [address] [place] [address] Performed By: #### L [id number] #### [facility] CLIA [id number] [address] [place] [address] [place] pH (U) 7.0 [pH] Normal 5.0-8.0 [facility] Comment on above: Order Comment: Speci men Type: URINE SPECIMENOrdering Facility: [facility] Address: [address] [address] Performed By: #### L [id number] #### [facility] CLIA [id number] [address] [place] [address] [place] Protein (U) [Mass/Vol] 1+ Abnormal Negative [facility] Comment on above: Order Comment: Speci men Type: URINE SPECIMENOrdering Facility: [facility] Address: [address] [place] [address] Performed By: #### L [id number] #### [facility] CLIA [id number] [address] [place] [address] [facility] RBC LM.HPF (Urine sed) [#/Area] 3-5 /HPF Abnormal 0-3 /HPF [facility] Comment on above: Order Comment: Speci men Type: URINE SPECIMENOrdering Facility: [facility] Address: [address] [place] [address] Performed By: #### L [id number] #### [facility] CLIA [id number] [address] [place] [address] [place] Specific gravity (U) [Rel density] 1.021 Normal 1.005-1.030 [facility] Comment on above: Order Comment: Speci men Type: URINE SPECIMENOrdering Facility: [facility] Address: [address] [place] [address] Performed By: #### L [id number] #### [facility] CLIA [id number] [address] [place] [address] Urobilinogen Ql (U) Negative Normal Negative [facility] Comment on above: Order Comment: Speci men Type: URINE SPECIMENOrdering Facility: [facility] Address: [address] [place] [address] Performed By: #### L [id number] #### [facility] CLIA [id number] [address] [place] [address] [place] WBC LM.HPF (Urine sed) [#/Area] 0-5 /HPF Normal 0-5 /HPF [facility] Comment on above: Order Comment: Speci men Type: URINE SPECIMENOrdering Facility: [facility] Address: [address] [place] [address] Performed By: #### L [id number] #### [facility] CLIA [id number] [address] [place] [address] [place] Basic metabolic 2000 panelon 01-31-2023 Anion gap [Moles/Vol] 16 mmol/L Normal 5-16 [facility] Comment on above: Order Comment: Speci men Type: BLOOD SPECIMENOrdering Facility: [facility] Address: [address] [address] Performed By: #### 2 4325-3, 83464-2, HCG ####[facility]CLIA [id number] [place] [address] [place] Calcium [Mass/Vol] 9.9 mg/dL Normal 8.5-10.5 [facility] Comment on above: Order Comment: Speci men Type: BLOOD SPECIMENOrdering Facility: [facility] Address: [address] [address] Performed By: #### 2 4325-3, 35964-6, HCG ####[facility]IA [id number] [place] [address] [place] Chloride [Moles/Vol] 110 mmol/L High 98-107 [facility] Comment on above: Order Comment: Speci men Type: BLOOD SPECIMENOrdering Facility: [facility] Address: [address] [address] Performed By: #### 2 4325-3, 74435-4, HCG ####[facility]IA [id number] [place] [address] [place] CO2 [Moles/Vol] 15 mmol/L Low 21-32 [facility] Comment on above: Order Comment: Speci men Type: BLOOD SPECIMENOrdering Facility: [facility] Address: [address] [address] Performed By: #### 2 4325-3, 58768-0, HCG ####[facility]ORY[facility]IA [id number] [place] [address] [place] Creatinine [Mass/Vol] 0.65 mg/dL Normal 0.51-0.95 [facility] Comment on above: Order Comment: Speci men Type: BLOOD SPECIMENOrdering Facility: [facility] Address: [address] [address] Result Comment: Cleopatra ents receiving either N-Acetylcysteine (NAC) or Metamizole prior to venipuncture, may have falsely depressed results. Performed By: #### 2 4325-3, 11781-1, HCG ####[facility]IA [id number] [place] [id number] [place] ESTIMATED GLOMERULAR FILTRATION RATE 123 mL/min/1.73m??? Normal >=60 [facility] Comment on above: Order Comment: Jon russ Type: BLOOD SPECIMENOrdering Facility: [facility] Address: [address] [address] Result Comment: Janett mated Glomerular Filtration Rate [...] actual GFR. Performed By: #### 2 4325-3, 20665-2, HCG ####[facility]IA [id number] [place] [address] [place] Glucose [Mass/Vol] 248 mg/dL High 70-100 [facility] Comment on above: Order Comment: Jon russ Type: BLOOD SPECIMENOrdering Facility: [facility] Address: [address] [place] [address] Result Comment: The [place] Diabetes Association (ADA) provides guidance for cutoff [...] Standards of Medical Care in Diabetes 2016, [place] [employer]. Diabetes Care. 2016.39(Suppl 1). Results may be falsely elevated after the administration of Sulfapyridine. Results may be falsely depressed after the administration of Sulfasalazine. Performed By: #### 2 4325-3, 10789-6, HCG ####[facility] [id number] [place] [id number] [place] Potassium [Moles/Vol] 3.8 mmol/L Normal 3.5-5.1 [facility] Comment on above: Order Comment: Speci men Type: BLOOD SPECIMENOrdering Facility: [facility] Address: [address] [address] Performed By: #### 2 4325-3, 26863-7, HCG ####[facility]ORYCLIA [id number] [place] [address] [place] Sodium [Moles/Vol] 141 mmol/L Normal 136-145 [facility] Comment on above: Order Comment: Speci men Type: BLOOD SPECIMENOrdering Facility: [facility] Address: [address] [address] Performed By: #### 2 4325-3, 83303-5, HCG ####[facility]ORYCLIA [id number] [place] [address] [place] Urea nitrogen [Mass/Vol] 17 mg/dL Normal 7-26 [facility] Comment on above: Order Comment: Speci men Type: BLOOD SPECIMENOrdering Facility: [facility] Address: [address] [address] Performed By: #### 2 4325-3, 53973-1, HCG ####[facility]IA [id number] [place] [address] [place] CBC W Auto Differential pane l (Bld)on 01-31-2023 Basophils (Bld) [#/Vol] 0.07 10*3/uL Normal <0.11 [facility] Comment on above: Order Comment: Speci men Type: BLOOD SPECIMENOrdering Facility: [facility] Address: [address] [address] Performed By: #### 5 7021-8 ####[facility]ORYCLIA [id number] [place] [address] [place] Basophils/100 WBC (Bld) 0.5 % Normal [facility] Comment on above: Order Comment: Speci men Type: BLOOD SPECIMENOrdering Facility: [facility] Address: [address] [address] Performed By: #### 5 7021-8 ####[facility]ORYCLIA [id number] [place] [address] [place] Differential cell count method Nom (Bld) Auto Normal [facility] Comment on above: Order Comment: Speci men Type: BLOOD SPECIMENOrdering Facility: [facility] Address: [address] [address] Performed By: #### 5 7021-8 ####[facility]ORYCLIA [id number] [place] [address] [place] Eosinophils (Bld) [#/Vol] 10*3/uL Normal <0.46 [facility] Comment on above: Order Comment: Speci men Type: BLOOD SPECIMENOrdering Facility: [facility] Address: [address] [address] Performed By: #### 5 7021-8 ####[facility]ORYCLIA [id number] [address] [place] Eosinophils/100 WBC (Bld) 0.1 % Normal [facility] Comment on above: Order Comment: Speci men Type: BLOOD SPECIMENOrdering Facility: [facility] Address: [address] [address] Performed By: #### 5 7021-8 ####[facility]ATORYIA [id number] [place] [address] [place] Erythrocyte distribution width (RBC) [Ratio] 12.9 % Normal 11.5-15.0 [facility] Comment on above: Order Comment: Speci men Type: BLOOD SPECIMENOrdering Facility: [facility] Address: [address] [address] Performed By: #### 5 7021-8 ####[facility]ORYCLIA [id number] [place] [address] [place] Hematocrit (Bld) [Volume fraction] 43.2 % Normal 36.0-46.0 [facility] Comment on above: Order Comment: Speci men Type: BLOOD SPECIMENOrdering Facility: [facility] Address: [address] [place] [address] Performed By: #### 5 7021-8 ####[facility]ORYCLIA [id number] [place] [address] [place] Hemoglobin (Bld) [Mass/Vol] 14.8 g/dL Normal 11.5-15.5 [facility] Comment on above: Order Comment: Speci men Type: BLOOD SPECIMENOrdering Facility: [facility] Address: [address] [place] [address] Performed By: #### 5 7021-8 ####[facility]ORYCLIA [id number] [place] [address] [place] Immature granulocytes (Bld) [#/Vol] 0.12 10*3/uL High <0.10 [facility] Comment on above: Order Comment: Speci men Type: BLOOD SPECIMENOrdering Facility: [facility] Address: [address] [place] [address] Performed By: #### 5 7021-8 ####[facility]ORYCLIA [id number] [place] [address] [place] Immature granulocytes/100 WBC (Bld) 0.8 % Normal [facility] Comment on above: Order Comment: Speci men Type: BLOOD SPECIMENOrdering Facility: [facility] Address: [address] [place] [address] Performed By: #### 5 7021-8 ####[facility] LABORATORYCLIA [id number] [place] [address] [place] Lymphocytes (Bld) [#/Vol] 2.36 10*3/uL Normal 1.00-4.00 [facility] Comment on above: Order Comment: Speci men Type: BLOOD SPECIMENOrdering Facility: [facility] Address: [address] [address] Performed By: #### 5 7021-8 ####[facility] LABORATORYCLIA [id number] [address] [place] Lymphocytes/100 WBC (Bld) 15.3 % Normal [facility] Comment on above: Order Comment: Speci men Type: BLOOD SPECIMENOrdering Facility: [facility] Address: [address] [address] Performed By: #### 5 7021-8 ####[facility] LABORATORYCLIA [id number] [address] [place] MCH (RBC) [Entitic mass] 29.1 pg Normal 26.0-34.0 [facility] Comment on above: Order Comment: Speci men Type: BLOOD SPECIMENOrdering Facility: [facility] Address: [address] [address] Performed By: #### 5 7021-8 ####[facility] LABORATORYCLIA [id number] [address] MCHC (RBC) [Mass/Vol] 34.3 g/dL Normal 30.5-36.0 [facility] Comment on above: Order Comment: Speci men Type: BLOOD SPECIMENOrdering Facility: [facility] Address: [address] [address] Performed By: #### 5 7021-8 ####[facility] LABORATORYCLIA [id number] [address] [place] MCV (RBC) [Entitic vol] 84.9 fL Normal 80.0-100.0 [facility] Comment on above: Order Comment: Speci men Type: BLOOD SPECIMENOrdering Facility: [facility] Address: [address] [address] Performed By: #### 5 7021-8 ####[facility] LABORATORYCLIA [id number] [place] [address] [place] Monocytes (Bld) [#/Vol] 0.73 10*3/uL Normal <0.87 [facility] Comment on above: Order Comment: Speci men Type: BLOOD SPECIMENOrdering Facility: [facility] Address: [address] [address] Performed By: #### 5 7021-8 ####[facility] LABORATORYCLIA [id number] [place] [address] [place] Monocytes/100 WBC (Bld) 4.7 % Normal [facility] Comment on above: Order Comment: Speci men Type: BLOOD SPECIMENOrdering Facility: [facility] Address: [address] [address] Performed By: #### 5 7021-8 ####[facility]ORATORYCLIA [id number] [place] [address] [place] Neutrophils (Bld) [#/Vol] 12.16 10*3/uL High 1.45-7.50 [facility] Comment on above: Order Comment: Speci men Type: BLOOD SPECIMENOrdering Facility: [facility] Address: [address] [address] Performed By: #### 5 7021-8 ####[facility]ORATORYCLIA [id number] [place] [address] [place] Neutrophils/100 WBC (Bld) 78.6 % Normal [facility] Comment on above: Order Comment: Speci men Type: BLOOD SPECIMENOrdering Facility: [facility] Address: [address] Performed By: #### 5 7021-8 ####[facility] LABORATORYCLIA [id number] [place] [address] [place] Nucleated RBC (Bld) [#/Vol] 10*3/uL Normal <0.01 [facility] Comment on above: Order Comment: Speci men Type: BLOOD SPECIMENOrdering Facility: [facility] Address: [address] [address] Performed By: #### 5 7021-8 ####[facility] LABORATORYCLIA [id number] [place] [id number] [place] Nucleated RBC/100 WBC (Bld) [Ratio] 0.0 /[address] [facility] Comment on above: Order Comment: Speci men Type: BLOOD SPECIMENOrdering Facility: [facility] Address: [address] [place] [address] Performed By: #### 5 7021-8 ####[facility] LABORATORYCLIA [id number] [place] [address] [place] Platelet mean volume (Bld) [Entitic vol] 13.0 fL High 9.0-12.7 [facility] Comment on above: Order Comment: Speci men Type: BLOOD SPECIMENOrdering Facility: [facility] Address: [address] [place] [address] Performed By: #### 5 7021-8 ####[facility]ORATORYCLIA [id number] [address] [place] Platelets (Bld) [#/Vol] 180 10*3/uL Normal 150-400 [facility] Comment on above: Order Comment: Speci men Type: BLOOD SPECIMENOrdering Facility: [facility] Address: [address] [place] [address] Result Comment: No c lot detected. Performed By: #### 5 7021-8 ####[facility] LABORATORYCLIA [id number] [place] [address] [place] RBC (Bld) [#/Vol] 5.09 10*6/uL Normal 3.90-5.20 [facility] Comment on above: Order Comment: Speci men Type: BLOOD SPECIMENOrdering Facility: [facility] Address: [address] [place] [address] Performed By: #### 5 7021-8 ####[facility]ORATORYCLIA [id number] [place] [address] [place] WBC (Bld) [#/Vol] 15.46 10*3/uL High 3.70-11.00 [facility] Comment on above: Order Comment: Speci men Type: BLOOD SPECIMENOrdering Facility: [facility] Address: [place] [address] Performed By: #### 5 7021-8 ####[facility] LABORATORYCLIA [id number] [place] [address] [place] ECG COMPLETEon 01-31-2023 ECG COMPLETE Ventricular Rate : 8 0 BPM Atrial Rate : 80 BPM P-R Interval : 144 ms QRS Duration : 84 ms Q-T Interval : 402 ms QTC Calculation(Bazett) : 463 ms Calculated P [place] : 26 degrees Calculated R [place] : 78 degrees Calculated T [place] : 72 degrees Normal sinus rhythm Nonspecific T wave abnormality Abnormal ECG When compared with ECG of 23-NOV-2022 18:14, Nonspecific T wave abnormality now evident in Lateral leads QT has lengthened Confirmed by ANASTASIA CHENG MD ([id number]) on 01/31/2023 11:03:12 PM NAME : KATHLEEN VILLA PID : [id number] : 1995 Gender : Female Race : ORD : [id number] Procedure Date : Jan 31 2023 19:42:30 Edit Date : Jan 31 2023 23:03:15 Diagnosis: Normal sinus rhythm Nonspecific T wave abnormality Abnormal ECG When compared with ECG of 23-NOV-2022 18:14, Nonspecific T wave abnormality now evident in Lateral leads QT has lengthened Confirmed by ANASTASIA CHENG MD ([id number]) on 01/31/2023 11:03:12 PM Test Reason : STAT Location : 0 : ED 9 Overread By : ANASTASIA CHENG MD Edited By : ANASTASIA CHENG MD Referred By : , Acquired by : [facility], [facility] ED NOTEon 01-31-2023 ED NOTE HNO ID: [id number] Author: Clementina Alarcon RN Service: Nursing Author Type: Registered Nurse Type: ED Notes Filed: 01/31/2023 9:06 PM Note Text: Report to oncoming nurse. [facility] ED NOTE HNO ID: [id number] Author: Blaise Flower RN Service: ? Author Type: Registered Nurse Type: ED Notes Filed: 01/31/2023 7:21 PM Note Text: Bed: 09-ED Expected date: 01/31/23 Expected time: Means of arrival: Comments: [facility] ED Triage Noteon 01-31-2023 ED Triage Note HNO ID: [id number] Author: Huy Hroton PA-C Service: ? Author Type: Physician Cut Roll Machine Operator Type: ED Triage Notes Filed: 01/31/2023 7:06 [...] obtained and pending. SIGNATURE: Huy Horton PA-C [facility] Gas and Carbon monoxide pane l (BldV)on 01-31-2023 BASE DEFICIT, VENOUS -2 mmol/L Normal -2-0 [facility] Comment on above: Order Comment: Speci men Type: VENOUS BLOOD SPECIMENOrdering Facility: [facility] Address: [address] [place] [address] Performed By: #### 2 4344-4 ####[facility] RESPIRATORY THERAPYCLIA [id number] [place] [address] [place] Body temperature 98.6 [degF] Normal [facility] Comment on above: Order Comment: Speci men Type: VENOUS BLOOD SPECIMENOrdering Facility: [facility] Address: [address] [address] Performed By: #### 2 4344-4 ####[facility] RESPIRATORY THERAPYCLIA [id number] [place] [address] [place] Calcium.ionized (Bld) [Mass/Vol] 1.11 mmol/L Normal 1.08-1.30 [facility] Comment on above: Order Comment: Speci men Type: VENOUS BLOOD SPECIMENOrdering Facility: [facility] Address: [address] [address] Performed By: #### 2 4344-4 ####[facility] RESPIRATORY THERAPYCLIA [id number] [place] [address] [place] Carboxyhemoglobin (BldV) [Mass fraction] 0.8 % Normal 0.0-2.0 [facility] Comment on above: Order Comment: Speci men Type: VENOUS BLOOD SPECIMENOrdering Facility: [facility] Address: [address] [place] [address] Result Comment: Carb oxyhemoglobin Reference Range for Smokers: 2.0-8.0% Performed By: #### 2 4344-4 ####[facility] RESPIRATORY THERAPYCLIA [id number] [place] [address] [place] CO2 (BldV) [Partial pressure] 22 mm[Hg] Low 42-55 [facility] Comment on above: Order Comment: Speci men Type: VENOUS BLOOD SPECIMENOrdering Facility: [facility] Address: [address] [place] [address] Performed By: #### 2 4344-4 ####[facility] RESPIRATORY THERAPYCLIA [id number] [place] [address] [place] Glucose [Mass/Vol] 303 mg/dL High 60-105 [facility] Comment on above: Order Comment: Speci men Type: VENOUS BLOOD SPECIMENOrdering Facility: [facility] Address: [address] [place] [address] Performed By: #### 2 4344-4 ####[facility] RESPIRATORY THERAPYCLIA [id number] [place] [address] [place] HCO3 (Bld) [Moles/Vol] 18 mmol/L Low 24-28 [facility] Comment on above: Order Comment: Speci men Type: VENOUS BLOOD SPECIMENOrdering Facility: [facility] Address: [address] [place] [address] Performed By: #### 2 4344-4 ####[facility] RESPIRATORY THERAPYCLIA [id number] [place] [address] [place] Hemoglobin (Bld) [Mass/Vol] 15.2 g/dL Normal 11.5-15.5 [facility] Comment on above: Order Comment: Speci men Type: VENOUS BLOOD SPECIMENOrdering Facility: [facility] Address: [address] [address] Performed By: #### 2 4344-4 ####[facility] RESPIRATORY THERAPYCLIA [id number] [address] [place] Lactate [Moles/Vol] 2.1 mmol/L Normal 0.5-2.2 [facility] Comment on above: Order Comment: Speci men Type: VENOUS BLOOD SPECIMENOrdering Facility: [facility] Address: [address] [address] Performed By: #### 2 4344-4 ####[facility] RESPIRATORY THERAPYCLIA [id number] [address] Methemoglobin (Bld) [Mass fraction] 0.3 % Normal 0.0-1.5 [facility] Comment on above: Order Comment: Speci men Type: VENOUS BLOOD SPECIMENOrdering Facility: [facility] Address: [address] [address] Performed By: #### 2 4344-4 ####[facility] RESPIRATORY THERAPYCLIA [id number] [address] O2 THERAPY RA=Room Air Normal [facility] Comment on above: Order Comment: Speci men Type: VENOUS BLOOD SPECIMENOrdering Facility: [facility] Address: [address] [address] Performed By: #### 2 4344-4 ####[facility] RESPIRATORY THERAPYCLIA [id number] [address] [place] Oxygen (BldV) [Partial pressure] 28 mm[Hg] Low 35-45 [facility] Comment on above: Order Comment: Speci men Type: VENOUS BLOOD SPECIMENOrdering Facility: [facility] Address: [address] [address] Performed By: #### 2 4344-4 ####[facility] THERAPYCLIA [id number] [address] [place] Oxyhemoglobin (BldV) [Mass fraction] 63 % Normal 4-98 [facility] Comment on above: Order Comment: Speci men Type: VENOUS BLOOD SPECIMENOrdering Facility: [facility] Address: [address] [address] Performed By: #### 2 4344-4 ####[facility] RESPIRATORY THERAPYCLIA [id number] [place] [address] [place] pH (BldV) 7.53 [pH] High 7.32-7.42 [facility] Comment on above: Order Comment: Speci men Type: VENOUS BLOOD SPECIMENOrdering Facility: [facility] Address: [address] [address] Performed By: #### 2 4344-4 ####[facility] RESPIRATORY THERAPYCLIA [id number] [address] [place] Potassium [Moles/Vol] 3.9 mmol/L Normal 2.5-6.0 [facility] Comment on above: Order Comment: Speci men Type: VENOUS BLOOD SPECIMENOrdering Facility: [facility] Address: [address] [address] Performed By: #### 2 4344-4 ####[facility] RESPIRATORY THERAPYCLIA [id number] [address] [place] Sodium [Moles/Vol] 138 mmol/L Normal 136-144 [facility] Comment on above: Order Comment: Speci men Type: VENOUS BLOOD SPECIMENOrdering Facility: [facility] Address: [address] [address] Performed By: #### 2 4344-4 ####[facility] RESPIRATORY THERAPYCLIA [id number] [address] [place] HCG QUAL BLDon 01-31-2023 HCG, QUALITATIVE Negative Normal Negative [facility] Comment on above: Order Comment: Speci men Type: BLOOD SPECIMENOrdering Facility: [facility] Address: [address] [address] Performed By: #### 2 4325-3, 07713-6, HCG ####[facility] LABORATORYCLIA [id number] [place] [address] [place] HIGH SENSITIVITY TROPONIN Io n 01-31-2023 Tropinin I.cardiac panel High sensitivity method <2.5 Normal 0.0-34.0 [facility] Comment on above: Order Comment: Speci men Type: BLOOD SPECIMENOrdering Facility: [facility] Address: [address] [place] [address] Result Comment: This assay uses different antibodies than our current assay, and assays, even by the same ethylene oxide panelboard operator may recognize different regions of the antibody and cannot be used interchangeably. Expect results of this assay to run higher than the previous assay. Performed By: #### H STROP ####[facility] LABORATORYCLIA [id number] [address] [place] Hepatic function 2000 panelo n 01-31-2023 Albumin [Mass/Vol] 4.3 g/dL Normal 3.2-5.0 [facility] Comment on above: Order Comment: Speci men Type: BLOOD SPECIMENOrdering Facility: [facility] Address: [address] [place] [address] Performed By: #### 2 4325-3, 26363-0, HCG ####[facility]CLIA [id number] [place] [address] [place] ALP [Catalytic activity/Vol] 93 U/L Normal 45-117 [facility] Comment on above: Order Comment: Speci men Type: BLOOD SPECIMENOrdering Facility: [facility] Address: [address] [place] [address] Performed By: #### 2 4325-3, 06600-7, HCG ####[facility] LABORATORYCLIA [id number] [place] [address] [place] ALT [Catalytic activity/Vol] 21 U/L Normal 13-61 [facility] Comment on above: Order Comment: Speci men Type: BLOOD SPECIMENOrdering Facility: [facility] Address: [address] [place] [address] Result Comment: Resu lts may be falsely depressed after the administration of Sulfasalazine and/or Sulfapyridine. Performed By: #### 2 4325-3, 75730-0, HCG ####[facility] LABORATORYCLIA [id number] [address] [place] AST [Catalytic activity/Vol] 19 U/L Normal 8-34 [facility] Comment on above: Order Comment: Speci men Type: BLOOD SPECIMENOrdering Facility: [facility] Address: [address] [place] [address] Result Comment: Resu lts may be falsely depressed after the administration of Sulfasalazine and/or Sulfapyridine. Performed By: #### 2 4325-3, 56475-6, HCG ####[facility] LABORATORYCLIA [id number] [address] [place] Bilirubin [Mass/Vol] 0.8 mg/dL Normal 0.2-1.0 [facility] Comment on above: Order Comment: Speci men Type: BLOOD SPECIMENOrdering Facility: [facility] Address: [address] [place] [address] Performed By: #### 2 4325-3, 33051-7, HCG ####[facility] LABORATORYCLIA [id number] [address] [place] Bilirubin.conjugated [Mass/Vol] 0.2 mg/dL Normal 0.0-0.4 [facility] Comment on above: Order Comment: Speci men Type: BLOOD SPECIMENOrdering Facility: [facility] Address: [address] [place] [address] Performed By: #### 2 4325-3, 18017-6, HCG ####[facility] LABORATORYCLIA [id number] [place] [address] [place] Protein [Mass/Vol] 7.3 g/dL Normal 6.0-8.5 [facility] Comment on above: Order Comment: Speci men Type: BLOOD SPECIMENOrdering Facility: [facility] Address: [address] [address] Performed By: #### 2 4325-3, 39389-9, HCG ####[facility] LABORATORYCLIA [id number] [address] [place] Lipase SerPl-cCncon 02-01-20 23 Lipase [Catalytic activity/Vol] 21 U/L Normal 12-60 [facility] Comment on above: Order Comment: Speci men Type: BLOOD SPECIMENOrdering Facility: [facility] Address: [address] [place] [address] Performed By: #### 3 040-3 ####[facility] LABORATORYCLIA [id number] [address] SEPSIS LACTATEon 01-31-2023 Lactate [Moles/Vol] 3.0 mmol/L High 0.4-2.0 [facility] Comment on above: Order Comment: Speci men Type: BLOOD SPECIMENOrdering Facility: [facility] Address: [address] [place] [address] Performed By: #### S LACT ####[facility] LABORATORYCLIA [id number] [address] XR ACUTE ABD SERIES 2V ABD+C [...] bowel. Consider CT if concern remains high. Drawbridge Tender: PSCB Transcribe Date/Time: Jan 31 2023 7:56P Dictated by : SARAVANAN REESE MD This examination was interpreted and the report reviewed and electronically signed by: SARAVANAN REESE MD on Jan 31 2023 8:00PM EST [id number] Normal [facility] Bacteria Ur Culton 3 Bacteria identified Cx Nom (U) CULTURE, URINE: <10,000 CFU/ml Normal Urogenital Dorothy Normal [facility] Comment on above: Performed By: #### 6 30-4 ####[facility] LABORATORYCLIA [id number] [address] OF [facility] CNNURSEon 01-25-2023 CNNURSE Nurse Visit (FAMPOR) KATHLEEN VILLA ([id number]) 1995 F CHT Date Time Provider Department [...] Other Visit Diagnosis:Dysuria [R30.0] Order(s):UA DIP B/O [[id number]] Order #: [id number] Prescriptions as of 01/25/2023 - prochlorperazine (COMPAZINE) [...] (BAQSIMI) 3 mg/actuation nasal spray Use 1 [place] in the nose as needed for low [...] 11/22/2013 04/16/2014 Diabetes mellitus in ([facility]) [O24.919] 12/25/2013 04/16/2014 DKA (diabetic ketoacidoses) [E11.10] 01/08/2014 Aortic root aneurysm ([facility]) [I71.21] 01/08/2014 DVT prophylaxis [Z79.899] [...] 12/08/2022 Encoun (more content not included)... Normal [facility] HEMOGLOBIN A1C (POC)on 01-25 HbA1c (Bld) [Mass fraction] 7.6 % Abnormal 4.2 - 5.6 % [facility] - Chemistry and C hemistry - challengeon 01-25-2023 Glucose Ql (U) Negative Neg mg/dL [facility] Ketones Ql (U) Negative Neg [facility] pH (U) 6.5 [pH] 4.5 - 8.0 [facility] Protein.monoclonal (U) [Mass/Vol] Negative Neg mg/dL [facility] - Urinalysison Nitrite Ql (U) Negative Neg [facility] No Panel Informationon 01-25 Bilirubin, Urine Negative Neg [facility] Color/Appearance Yellow/clear [facility] Hemoglobin/Blood,Ur Negative Neg [facility] Leukocytes Negative Neg [facility] Specific [place], Ur 1.020 1.005 - 1.030 [facility], Urine 0.2 EU Normal ( <1.1) EU [facility] CNPNon 01-24-2023 CNPN Telephone (FAMPOR) KATHLEEN VILLA ([id number]) 1995 F CHT Date Time Provider Department 01/24/23 VIVI SMITH During your visit today, we recorded the following information about you: Radha Mandel MA 01/24/2023 11:44 AM Signed Yaima from [facility] called and they need an order for [...] (BAQSIMI) 3 mg/actuation nasal spray Use 1 [place] in the nose as needed for low [...] VIVI SMITH on (more content not included)... [facility] CNPN Telephone [facility] KATHLEEN VILLA ([id number]) 1995 F CHT Date Time Provider Department [...] Diagnosis:Left flank pain [R10.9] Order(s):UA DIP B/O [[id number]] Order #: [id number] FUTURE URINE CULTURE [SQURCUL] Order #: [id number] Prescriptions as of 01/25/2023 - prochlorperazine (COMPAZINE) [...] (BAQSIMI) 3 mg/actuation nasal spray Use 1 [place] in the nose as needed for low [...] [facility] Center CNPN Telephone ([facility]) KATHLEEN VILLA ([id number]) 1995 F CHT Date Time Provider Department [...] - Rash Date Reviewed: 01/20/2023 Reviewed by: Nicoletet Cox LPN - Fully Assessed Reason for [...] (BAQSIMI) 3 mg/actuation nasal spray Use 1 [place] in the nose as needed for low [...] Encounter Status:Closed by YAIMA AGUILAR on 01/26/23 [facility] Bacteria Ur Culton 3 Bacteria identified Cx Nom (U) CULTURE, URINE: 10,000-<50,000 CFU/mL Three or more organisms, no one type predominant, suggesting contamination during collection. Recollect if clinically indicated. [facility] Comment on above: Performed By: #### 6 30-4 ####[facility] LABORATORYCLIA [id number] [place] [id number] [place] CNOVon 01-20-2023 CNOV Office Visit (FAMPOR ) KATHLEEN VILLA ([id number]) 1995 F T Date Time Provider Department [...] 200s/. She sees Endo next week. Seeing [employer] and had recent negative pap smear and [...] (BAQSIMI) 3 mg/actuation nasal spray Use 1 [place] in the nose as needed for low [...] Ear: Ty (more content not included)... Normal [facility] C. trachomatis+N. gonorrhoea e DNA DANIEL+probe Ql (Unsp spec)on 01-12-2023 C. trachomatis DNA DANIEL+probe Ql (Unsp spec) Negative Normal Negative for Chlamydia trachomatis by amplificaton [facility] Comment on above: Order Comment: Speci men Type: SWAB Ordering Facility: [facility] [facility] Address: [address] [place] [address] Performed By: #### 3 6902-5 #### [facility] CLIA [id number] [address] [place] [address] [place] N. gonorrhoeae DNA DANIEL+probe Ql (Unsp spec) Negative Normal Negative for Neisseria gonorrhoeae by amplification [facility] Comment on above: Order Comment: Speci men Type: SWAB Ordering Facility: [facility] Address: [address] [place] [address] Performed By: #### 3 6902-5 #### [facility] CLIA [id number] [address] [place] [address] [place] [address] [facility] CNOVon 01-12-2023 CNOV Office Visit (OBGYMM ) KATHLEEN VILLA ([id number]) 1995 F CHT Date Time Provider Department 01/12/23 1:00 PM MADONNA TORO OBGYMM During your visit today, we recorded the following information about you: Blood pressure Weight Height Last Period 100/70 86.3 kg 1.753 m 11/26/22 Faviola Engle MA 01/12/2023 1:32 PM Signed Pt was exposed to a std. Madonna Toro DO 01/12/2023 1:32 PM Signed Kathleen [...] fevers GI: No nausea, vomiting, or diarrhea DIRECTOR OF DEMENTIA OPERATIONS: Negative for abnormal vaginal bleeding, abnormal vaginal [...] [SQGCCAMP] Order (more content not included)... Normal [facility] HBV surface Ag Ser Qlon 12-26 HBV surface Ag Ql (S) Non-Reactive Normal Equivo cristina, Nonreactive [facility] Comment on above: Order Comment: Speci men Type: BLOOD SPECIMEN Ordering Facility: [facility] Address: [address] [place] [address] Result Comment: Resu lts were obtained with the [employer] IM IgM assay. Values obtained with different manufactures' assay methods may not be used interchangeably. Performed By: #### 3 1201-7, 5195-3, 84589-8, SYPH #### [facility] CLIA [id number] [address] [place] [address] [place] HCV Ab Ser Qlon 01-12-2023 HCV Ab Ql (S) Non-Reactive Normal [employer] [facility] Comment on above: Order Comment: Speci men Type: BLOOD SPECIMEN Ordering Facility: [facility] Address: [address] [place] [address] Result Comment: Scre ening test negative Nonreactive HCV Antibody Screen is consistent with no HCV infection, unless recent infection is suspected or other evidence exists to indicate HCV infection. Results were obtained with the [employer] IM IgM assay. Values obtained with different manufactures' assay methods may not be used interchangeably. Performed By: #### 3 1201-7, 5195-3, 37691-5, SYPH #### [facility] CLIA [id number] [address] [place] [address] [place] HIV 1+2 Ab IA Qlon 3 HIV 1+2 Ab+HIV1 p24 Ag IA Ql Non-Reactive Normal Nonreactive [facility] Comment on above: Order Comment: Speci men Type: BLOOD SPECIMEN Ordering Facility: [facility] Address: [address] [place] [address] Result Comment: Nonr eactive: Less than 1.0 index value Specimens with an index value <1.0 are considered nonreactive for antibodies to HIV-1, HIV-2, and p24 antigen by the [employer] IM CHIV assay. Performed By: #### 3 1201-7, 5195-3, 14338-7, SYPH #### [facility] CLIA [id number] [address] [place] [address] TREPONEMA PALLIDUM SCREENon 01-12-2023 T. pallidum IgG IF Ql (S) Non-Reactive Normal Nonreactive [facility] Comment on above: Order Comment: Speci men Type: BLOOD SPECIMEN Ordering Facility: [facility] Address: [address] [place] [address] Result Comment: Samp les with an index value of less than 0.90 are considered Nonreactive for Syphilis T. pallidum antibodies. Performed By: #### 3 1201-7, 5195-3, 37562-4, SYPH #### [facility] CLIA [id number] [address] [place] [address] OF [place]IN WET PREPon 01-12-2023 WET PREP WET PREP RESULT: No Trichomonads, No yeast observed Moderate Clue cells present Normal [facility] Comment on above: Performed By: #### L BC0827 #### [facility] CLIA [id number] [address] [place] [address] [place] HEMOGLOBIN A1C (POC)on 08-16 HbA1c (Bld) [Mass fraction] 7.0 % Abnormal 4.2 - 5.6 % [facility] BMPon 02-01-2022 Anion gap [Moles/Vol] 7 mmol/L Normal 5-16 [facility] Comment on above: Order Comment: Campu s: M Performed By: #### L 500.74170, L500.98988, L500.95566 ####[facility] [id number] [place], [place] [address]Hd# [phone] BUN/CREA TNP Normal 15-24 [facility] Comment on above: Order Comment: Campu s: M Performed By: #### L 500.94140, L500.34927, L500.00572 ####[facility] FWHZVBYGGK6466 [place], [place] [address]Fk# [phone] Calcium [Mass/Vol] 8.4 mg/dL Low 8.5-10.5 [facility] Comment on above: Order Comment: Campu s: M Result Comment: NOTE NEW NORMAL RANGE DUE TO REAGENT CHANGE Performed By: #### L 500.15006, L500.04554, L500.85462 ####[facility] [id number] [place], [place] [address]Md# [phone] Chloride [Moles/Vol] 112 mmol/L High 98-107 [facility] Comment on above: Order Comment: Campu s: M Performed By: #### L 500.27305, L500.87342, L500.02064 ####[facility] SUQIOIRHQI7296 [place], [place] [address]Ky# [phone] CO2 [Moles/Vol] 24.0 mmol/L Normal 21-32 [facility] Comment on above: Order Comment: Campu s: M Performed By: #### L 500.83367, L500.60771, L500.53118 ####[facility] YLCVMXWJCS3951 [place], [place] [address]Tx# [phone] Creatinine [Mass/Vol] 0.64 mg/dL Normal 0.510-0.950 [facility] Comment on above: Order Comment: Zach s: M Result Comment: Cleopatra ents receiving either N-Acetylcysteine (NAC) orMetamizole prior to venipuncture, may have falsely depressedresults. Performed By: #### L 500.24874, L500.80463, L500.27514 ####[facility] AMPTPJQRUT6172 [place], [place] [address]Uu# [phone] Glucose [Mass/Vol] 104 mg/dL High 70-100 [facility] Comment on above: Order Comment: Zach richter: Millicent Result Comment: 70-1 00- Normal Fasting; 100-125 Impaired Fasting; greaterthan 126 on more than one result- Diabetes. ADA guidelines.Results may be falsely elevated after the administration ofSulfapyridine.Results may be falsely depressed after the administration ofSulfasalazine. Performed By: #### L 500.58844, L500.80039, L500.02884 ####[facility] AMDVZKSLNS4594 [place], [place] [address]Im# [phone] Potassium [Moles/Vol] 3.7 mmol/L Normal 3.5-5.1 [facility] Comment on above: Order Comment: Zach s: M Result Comment: Slig ht Hemolysis, Result may be affected. Performed By: #### L 500.25517, L500.37691, L500.09391 ####[facility] AWLCFYKKZS3808 [place], [place] [address]Wr# [phone] Sodium [Moles/Vol] 143 mmol/L Normal 136-145 [facility] Comment on above: Order Comment: Zach Ricks Performed By: #### L 500.49940, L500.86289, L500.79130 ####[facility] SIIHXYJMYI3195 [place], [place] [address]Cf# [phone] Urea nitrogen [Mass/Vol] 5 mg/dL Low 7-26 [facility] Comment on above: Order Comment: Campu s: M Performed By: #### L 500.53366, L500.45324, L500.66457 ####[facility] SOYESFHAFO6661 [place], [place] [address]Bx# [phone] CBC W/DIFFon 02-01-2022 BASO ABS 0.10 K/CU MM Normal 0-0.2 [facility] Comment on above: Order Comment: Campu s: M Performed By: #### L 200.16806 ####[address] [address]Cn# [phone] Basophils/100 WBC (Bld) 0.6 % Normal 0-2 [facility] Comment on above: Order Comment: Campu s: M Performed By: #### L 200.49894 ####[place] [address]Ph# [phone] EOS ABS 0.10 K/CU MM Normal 0-0.5 [facility] Comment on above: Order Comment: Campu s: M Performed By: #### L 200.24170 ####[facility] JJRETDKBQB[address] [place], [place] [address]Ph# [phone] Eosinophils/100 WBC (Bld) 1.3 % Normal 0-5 [facility] Comment on above: Order Comment: Campu s: M Performed By: #### L 200.39827 ####[facility] [id number] [place] [address]Rq# [phone] Erythrocyte distribution width (RBC) [Ratio] 13.8 % Normal 11-14.5 [facility] Comment on above: Order Comment: Campu s: M Performed By: #### L 200.44858 ####[facility] QMRFFWLPHG[address] [place] [address]Xm# [phone] Hematocrit (Bld) [Volume fraction] 36.9 % Normal 35.0-47.0 [facility] Comment on above: Order Comment: Campu s: M Performed By: #### L 200.99087 ####[facility] MLQXLAVNQD157[address] [place] [address]Eo# [phone] Hemoglobin (Bld) [Mass/Vol] 12.3 g/dL Normal 11.5-15.5 [facility] Comment on above: Order Comment: Campu s: M Performed By: #### L 200.94647 ####[facility] VMKWNHEBSW[address] [place], [place] [address]Ph# [phone] IMMATR GRAN ABS 0.20 K/CU MM Normal Less than 2 [facility] Comment on above: Order Comment: Campu s: M Performed By: #### L 200.53779 ####[place] [address]Ph# [phone] IMMATURE GRAN % 2.2 % Normal Less than 2 [facility] Comment on above: Order Comment: Campu s: M Performed By: #### L 200.96493 ####[place] [address]Ph# [phone] LYMPH ABS 3.70 K/CU MM Normal 0.9-4.4 [facility] Comment on above: Order Comment: Campu s: M Performed By: #### L 200.49487 ####[address] [address]Po# [phone] Lymphocytes/100 WBC (Bld) 33.6 % Normal 20-40 [facility] Comment on above: Order Comment: Campu s: M Performed By: #### L 200.31807 ####[facility] [id number] [place] [address]Wj# [phone] MCHC (RBC) [Mass/Vol] 33.3 g/dL Normal 32.0-36.0 [facility] Comment on above: Order Comment: Campu s: M Performed By: #### L 200.88215 ####[facility] WBUPRVHAOS[address] [place], [place] [address]Ph# [phone] MCV (RBC) [Entitic vol] 86.8 fL Normal 80.0-99.0 [facility] Comment on above: Order Comment: Campu s: M Performed By: #### L 200.55529 ####[facility] MLATAKUFUD5271 [place], [place] [address]Bi# [phone] MONO ABS 0.80 K/CU MM Normal 0.1-1.1 [facility] Comment on above: Order Comment: Campu s: M Performed By: #### L 200.12737 ####[place] [address]Ph# [phone] Monocytes/100 WBC (Bld) 7.3 % Normal 2-10 [facility] Comment on above: Order Comment: Campu s: M Performed By: #### L 200.11826 ####[place] [address]Ph# [phone] NEUTROPHIL ABS 6.00 K/CU MM Normal 2.0-8.3 [facility] Comment on above: Order Comment: Campu s: M Performed By: #### L 200.51327 ####[facility] [id number] [place], [place] [address]Ph# [phone] Neutrophils/100 WBC (Bld) 55.0 % Normal 45-75 [facility] Comment on above: Order Comment: Campu s: M Performed By: #### L 200.14041 ####[facility] JSVFWNUDSX[address] [place], [place] [address]Ph# [phone] Nucleated RBC/100 WBC (Bld) [Ratio] 0.0 % Normal Less than 1 [facility] Comment on above: Order Comment: Campu s: M Performed By: #### L 200.42687 ####[facility] WDZJWACPSN[address] [place] [address]Mt# [phone] Platelet mean volume (Bld) [Entitic vol] 11.3 fL Normal 9.4-12.4 [facility] Comment on above: Order Comment: Campu s: M Performed By: #### L 200.57957 ####[facility] [id number] [place], [place] [address]Fs# [phone] PLT 173 K/CU MM Normal 150-450 [facility] Comment on above: Order Comment: Campu s: M Performed By: #### L 200.87569 ####[facility] BQFGQQZVZP1288 [place], [place] [address]Fd# [phone] RBC 4.25 M/CU MM Normal 3.90-5.30 [facility] Comment on above: Order Comment: Campu s: M Performed By: #### L 200.43298 ####[facility] CURNCQKSLO9633 [place], [place] [address]Vf# [phone] WBC 10.9 K/CUMM Normal 4.5-11.0 [facility] Comment on above: Order Comment: Campu s: M Performed By: #### L 200.10004 ####[facility] TY[address]MJRQHF[address] [place] [address]Xh# [phone] DISCH.SUMon 02-01-2022 DISCH.SUM Normal [facility] GFR ESTon 02-01-2022 IF AMER Greater than 60 Normal [facility] Comment on above: Order Comment: Campu s: M Performed By: #### L 500.01900, L500.33803, L500.34682 ####[facility] PAILPNQCJP7619 [place], [place] [address]Jb# [phone] IF non-AFR AMER Greater than 60 Normal [facility] Comment on above: Order Comment: Campu s: M Performed By: #### L 500.19450, L500.52907, L500.30111 ####[facility] YNUVQBNLLU6033 [place], [place] [address]Zc# [phone] GLUCOSE METERon 02-01-2022 Glucose [Mass/Vol] 291 mg/dL High 70-115 [facility] Glucose [Mass/Vol] 89 mg/dL Normal 70-115 [facility] MAGNESIUMon 02-01-2022 Magnesium [Mass/Vol] 2.0 mg/dL Normal 1.6-2.6 [facility] Comment on above: Order Comment: Campu s: M Performed By: #### L 500.59832, L500.24845, L500.12945 ####[facility] JJDLWUWWDD5065 [place], [place] [address]Gz# [phone] BMPon 01-31-2022 Anion gap [Moles/Vol] 12 mmol/L Normal 5-16 [facility] Comment on above: Order Comment: Campu s: M Performed By: #### L 500.97908, L500.58275, L500.94848 ####[facility] MFYNSPIKOH8469 [place], [place] [address]Dl# [phone] Calcium [Mass/Vol] 9.1 mg/dL Normal 8.5-10.5 [facility] Comment on above: Order Comment: Campu s: M Result Comment: NOTE NEW NORMAL RANGE DUE TO REAGENT CHANGE Performed By: #### L 500.98796, L500.97571, L500.34147 ####[facility] WMWRGOGQYW1844 [place], [place] [address]Pu# [phone] Chloride [Moles/Vol] 106 mmol/L Normal 98-107 [facility] Comment on above: Order Comment: Campu s: M Performed By: #### L 500.17561, L500.82662, L500.92425 ####[facility] ZHTXLSFHEV2069 [place], [place] [address]Wi# [phone] CO2 [Moles/Vol] 24.0 mmol/L Normal 21-32 [facility] Comment on above: Order Comment: Campu s: M Performed By: #### L 500.17889, L500.81563, L500.11054 ####[facility] JJJBEHJKUB6300 [place], [place] [address]Mz# [phone] Creatinine [Mass/Vol] 0.61 mg/dL Normal 0.510-0.950 [facility] Comment on above: Order Comment: Campu s: M Result Comment: Cleopatra ents receiving either N-Acetylcysteine (NAC) orMetamizole prior to venipuncture, may have falsely depressedresults. Performed By: #### L 500.66020, L500.54595, L500.20194 ####[facility] FWKRSUEYIH0973 [place], [place] [address]Gi# [phone] Glucose [Mass/Vol] 167 mg/dL High 70-100 [facility] Comment on above: Order Comment: Campu s: M Result Comment: Delt a check [id number] Normal Fasting; 100-125 Impaired Fasting; greaterthan 126 on more than one result- Diabetes. ADA guidelines.Results may be falsely elevated after the administration ofSulfapyridine.Results may be falsely depressed after the administration ofSulfasalazine. Performed By: #### L 500.27654, L500.97567, L500.48551 ####[facility] MFFYKEVCWS1373 [place], [place] [address]Qe# [phone] Potassium [Moles/Vol] 3.7 mmol/L Normal 3.5-5.1 [facility] Comment on above: Order Comment: Campu s: M Result Comment: Slig ht Hemolysis, Result may be affected. Performed By: #### L 500.48508, L500.79823, L500.10009 ####[facility] SULPEJRAHP1771 [place], [place] [address]Kj# [phone] Sodium [Moles/Vol] 142 mmol/L Normal 136-145 [facility] Comment on above: Order Comment: Campu s: M Performed By: #### L 500.49496, L500.62321, L500.25887 ####[facility] QIQEWLHSCD1970 [place], [place] [address]Tf# [phone] Urea nitrogen [Mass/Vol] 7 mg/dL Normal 7-26 [facility] Comment on above: Order Comment: Campu s: M Performed By: #### L 500.69417, L500.86314, L500.52190 ####[facility] SNQODZWFVF[address] [place] [address]Ns# [phone] Urea nitrogen/Creatinine [Mass ratio] 11 mg/mg Low 15-24 [facility] Comment on above: Order Comment: Campu s: M Performed By: #### L 500.50496, L500.07312, L500.09961 ####[facility] IEQZDAJOAY[address] [place] [address]Ds# [phone] CBC W/DIFFon 01-31-2022 BASO ABS 0.10 K/CU MM Normal 0-0.2 [facility] Comment on above: Order Comment: Campu s: M Performed By: #### L 200.72760 ####[address] [address]Kh# [phone] Basophils/100 WBC (Bld) 0.5 % Normal 0-2 [facility] Comment on above: Order Comment: Campu s: M Performed By: #### L 200.11153 ####[facility] SUBWVVVMQB[address] [place] [address]Pd# [phone] EOS ABS 0.00 K/CU MM Normal 0-0.5 [facility] Comment on above: Order Comment: Campu s: M Performed By: #### L 200.44177 ####[facility] FDENCCSFLK[address] [place] [address]Dr# [phone] Eosinophils/100 WBC (Bld) 0.1 % Normal 0-5 [facility] Comment on above: Order Comment: Campu s: M Performed By: #### L 200.33096 ####[facility] HOQCZBCVXM9[address] [place] [address]Sx# [phone] Erythrocyte distribution width (RBC) [Ratio] 13.9 % Normal 11-14.5 [facility] Comment on above: Order Comment: Campu s: M Performed By: #### L 200.09152 ####[facility] JXQJRQXTSD[address] [place] [address]Qo# [phone] Hematocrit (Bld) [Volume fraction] 37.5 % Normal 35.0-47.0 [facility] Comment on above: Order Comment: Campu s: M Performed By: #### L 200.94960 ####[facility] IUZJWSZETP[address] [place] [address]At# [phone] Hemoglobin (Bld) [Mass/Vol] 12.3 g/dL Normal 11.5-15.5 [facility] Comment on above: Order Comment: Campu s: M Performed By: #### L 200.71960 ####[place] [address]Ph# [phone] IMMATR GRAN ABS 0.30 K/CU MM Normal Less than 2 [facility] Comment on above: Order Comment: Campu s: M Performed By: #### L 200.82099 ####[place] [address]004[address]Ph# [phone] IMMATURE GRAN % 1.9 % Normal Less than 2 [facility] Comment on above: Order Comment: Campu s: M Performed By: #### L 200.71170 ####[place] [address]004[address]Ph# [phone] LYMPH ABS 4.00 K/CU MM Normal 0.9-4.4 [facility] Comment on above: Order Comment: Campu s: M Performed By: #### L 200.38508 ####[facility] NYFTEWAYPJ[address] [place], [place] [address]Ph# [phone] Lymphocytes/100 WBC (Bld) 24.8 % Normal 20-40 [facility] Comment on above: Order Comment: Campu s: M Performed By: #### L 200.74627 ####[facility] HWMELTRIBY[address] [place] [address]Vk# [phone] MCHC (RBC) [Mass/Vol] 32.8 g/dL Normal 32.0-36.0 [facility] Comment on above: Order Comment: Campu s: M Performed By: #### L 200.20243 ####[facility] NXVJNAOCLP6229 [place], [place] [address]Ox# [phone] MCV (RBC) [Entitic vol] 87.6 fL Normal 80.0-99.0 [facility] Comment on above: Order Comment: Campu s: M Performed By: #### L 200.07658 ####[place] [address]Ph# [phone] MONO ABS 1.00 K/CU MM Normal 0.1-1.1 [facility] Comment on above: Order Comment: Campu s: M Performed By: #### L 200.33193 ####[place] [address]004[address]Ph# [phone] Monocytes/100 WBC (Bld) 6.2 % Normal 2-10 [facility] Comment on above: Order Comment: Campu s: M Performed By: #### L 200.57168 ####[place] [address]004[address]Ph# [phone] NEUTROPHIL ABS 10.60 K/CU MM High 2.0-8.3 [facility] Comment on above: Order Comment: Campu s: M Performed By: #### L 200.63325 ####[place] [address]004[address]Ph# [phone] Neutrophils/100 WBC (Bld) 66.5 % Normal 45-75 [facility] Comment on above: Order Comment: Campu s: M Performed By: #### L 200.48863 ####[facility] GSFAGNRABY[address] [place] [address]Nr# [phone] Nucleated RBC/100 WBC (Bld) [Ratio] 0.0 % Normal Less than 1 [facility] Comment on above: Order Comment: Campu s: M Performed By: #### L 200.05320 ####[facility] JYMNUBRDNM[address] [place], [place] [address]Ph# [phone] Platelet mean volume (Bld) [Entitic vol] 12.0 fL Normal 9.4-12.4 [facility] Comment on above: Order Comment: Campu s: M Performed By: #### L 200.96776 ####[facility] VKAKQHRHOB1277 [place], [place] [address]Wd# [phone] PLT 183 K/CU MM Normal 150-450 [facility] Comment on above: Order Comment: Campu s: M Performed By: #### L 200.07699 ####[facility] GVQWLBTKTM0627 [place], [place] [address]Tq# [phone] RBC 4.28 M/CU MM Normal 3.90-5.30 [facility] Comment on above: Order Comment: Campu s: M Performed By: #### L 200.59654 ####[facility] JRIZCCOIAY0455 [place], [place] [address]Zo# [phone] WBC 16.0 K/CUMM High 4.5-11.0 [facility] Comment on above: Order Comment: Campu s: M Performed By: #### L 200.22100 ####[facility] STMYCJBJJP4315 [place], [place] [address]Xn# [phone] GFR ESTon 01-31-2022 IF AMER Greater than 60 Normal [facility] Comment on above: Order Comment: Campu s: M Performed By: #### L 500.04533, L500.24323, L500.66156 ####[facility] [id number] [place], [place] [address]Jv# [phone] IF non-AFR AMER Greater than 60 Normal [facility] Mcdonald Comment on above: Order Comment: Campu s: M Performed By: #### L 500.55996, L500.82103, L500.04793 ####[facility] [id number] [place], [place] [address]Pr# [phone] GLUCOSE METERon 01-31-2022 Glucose [Mass/Vol] 233 mg/dL High 70-115 [facility] Glucose [Mass/Vol] 216 mg/dL High 70-115 [facility] Gl[facility] [Mass/Vol] 171 mg/dL High 70-115 [facility] Glucose [Mass/Vol] 230 mg/dL High 70-115 [facility] Glucose [Mass/Vol] 284 mg/dL High 70-115 [facility] MAGNESIUMon 01-31-2022 Magnesium [Mass/Vol] 1.8 mg/dL Normal 1.6-2.6 [facility] Comment on above: Order Comment: Campu s: M Performed By: #### L 500.29713, L500.42321, L500.69095 ####[facility] KKCJWHJGPE4693 [place], [place] [address]Yj# [phone] PROG IMSon 01-31-2022 PROG IMS Normal [facility] Progress Note-Hospitalist Normal [facility] BMPon 01-30-2022 Anion gap [Moles/Vol] 8 mmol/L Normal 5-16 [facility] Comment on above: Order Comment: Campu s: M Performed By: #### L 500.13146, L500.31994 ####[facility] KGYKJZFZNE0927 [place], [place] [address]Ez# [phone] Calcium [Mass/Vol] 8.7 mg/dL Normal 8.5-10.5 [facility] Comment on above: Order Comment: Campu s: M Result Comment: NOTE NEW NORMAL RANGE DUE TO REAGENT CHANGE Performed By: #### L 500.04482, L500.50374 ####[facility] CICACOEKBR1233 [place], [place] [address]Kx# [phone] Chloride [Moles/Vol] 114 mmol/L High 98-107 [facility] Comment on above: Order Comment: Campu s: M Performed By: #### L 500.69854, L500.25218 ####[facility] UGOCIKEARE4986 [place], [place] [address]Oh# [phone] CO2 [Moles/Vol] 22.0 mmol/L Normal 21-32 [facility] Comment on above: Order Comment: Campu s: M Performed By: #### L 500.13975, L500.74818 ####[facility] GDCIYNFTFZ1302 [place], [place] [address]Wj# [phone] Creatinine [Mass/Vol] 0.68 mg/dL Normal 0.510-0.950 [facility] Comment on above: Order Comment: Campu s: M Result Comment: Cleopatra ents receiving either N-Acetylcysteine (NAC) orMetamizole prior to venipuncture, may have falsely depressedresults. Performed By: #### L 500.23753, L500.47493 ####[facility] ASCJNXWPBL2308 [place], [place] [address]Ru# [phone] Glucose [Mass/Vol] 87 mg/dL Normal 70-100 [facility] Comment on above: Order Comment: Campu s: M Result Comment: 70-1 00- Normal Fasting; 100-125 Impaired Fasting; greaterthan 126 on more than one result- Diabetes. ADA guidelines.Results may be falsely elevated after the administration ofSulfapyridine.Results may be falsely depressed after the administration ofSulfasalazine. Performed By: #### L 500.07512, L500.77725 ####[facility] KQTXTTSNMJ4147 [place], [place] [address]Ve# [phone] Potassium [Moles/Vol] 3.2 mmol/L Low 3.5-5.1 [facility] Comment on above: Order Comment: Campu s: M Result Comment: Slig ht Hemolysis, Result may be affected. Performed By: #### L 500.98884, L500.93405 ####[facility] NTCLGYQBIQ6089 [place], [place] [address]Qp# [phone] Sodium [Moles/Vol] 144 mmol/L Normal 136-145 [facility] Comment on above: Order Comment: Campu s: M Performed By: #### L 500.46885, L500.56277 ####[facility] WNPVPFRRJY4082 [place], [place] [address]Nq# [phone] Urea nitrogen [Mass/Vol] 14 mg/dL Normal 7-26 [facility] Comment on above: Order Comment: Campu s: M Performed By: #### L 500.73359, L500.78361 ####[facility] CEPNOVVUPN7371 [place], [place] [address]Vv# [phone] Urea nitrogen/Creatinine [Mass ratio] 20 mg/mg Normal 15-24 [facility] Comment on above: Order Comment: Campu s: M Performed By: #### L 500.16041, L500.01104 ####[facility] MFNNDMNYPF1197 [place], [place] [address]Ui# [phone] Anion gap [Moles/Vol] 5 mmol/L Normal 5-16 [facility] Comment on above: Order Comment: Campu s: M Performed By: #### L 500.84561, L500.38031 ####[facility] XYQXTSXURE2611 [place], [place] [address]Nf# [phone] Calcium [Mass/Vol] 9.0 mg/dL Normal 8.5-10.5 [facility] Comment on above: Order Comment: Campu s: M Result Comment: NOTE NEW NORMAL RANGE DUE TO REAGENT CHANGE Performed By: #### L 500.26306, L500.50958 ####[facility] MKTQXJECWE2529 [place], [place] [address]Qk# [phone] Chloride [Moles/Vol] 114 mmol/L High 98-107 [facility] Comment on above: Order Comment: Campu s: M Result Comment: Delt a check reviewed Performed By: #### L 500.27767, L500.08131 ####[facility] EOHWQXGZJO0054 [place], [place] [address]Qr# [phone] CO2 [Moles/Vol] 22.0 mmol/L Normal 21-32 [facility] Comment on above: Order Comment: Campu s: M Result Comment: Delt a check reviewed Performed By: #### L 500.64822, L500.15563 ####[facility] KMCAEHXTVH[address] [place] [address]Xl# [phone] Creatinine [Mass/Vol] 0.74 mg/dL Normal 0.510-0.950 [facility] Comment on above: Order Comment: Campu s: M Result Comment: Cleopatra ents receiving either N-Acetylcysteine (NAC) orMetamizole prior to venipuncture, may have falsely depressedresults. Performed By: #### L 500.42122, L500.74816 ####[facility] KDRLHHZFJR5402 [place], [place] [address]Qv# [phone] Glucose [Mass/Vol] 95 mg/dL Normal 70-100 [facility] Comment on above: Order Comment: Campu s: M Result Comment: 70-1 00- Normal Fasting; 100-125 Impaired Fasting; greaterthan 126 on more than one result- Diabetes. ADA guidelines.Results may be falsely elevated after the administration ofSulfapyridine.Results may be falsely depressed after the administration ofSulfasalazine. Performed By: #### L 500.82770, L500.36457 ####[facility] SXEKZFVVOD4699 [place], [place] [address]Cp# [phone] Potassium [Moles/Vol] 3.6 mmol/L Normal 3.5-5.1 [facility] Comment on above: Order Comment: Campu s: M Performed By: #### L 500.05756, L500.26085 ####[facility] RYYZFOYYPK5979 [place], [place] [address]Dt# [phone] Sodium [Moles/Vol] 141 mmol/L Normal 136-145 [facility] Comment on above: Order Comment: Campu s: M Performed By: #### L 500.00317, L500.38445 ####[facility] CUETPAGEDS8951 [place], [place] [address]Az# [phone] Urea nitrogen [Mass/Vol] 18 mg/dL Normal 7-26 [facility] Comment on above: Order Comment: Campu s: M Performed By: #### L 500.09607, L500.43882 ####[facility] JDYORJCXDP7424 [place] [address]Ph# [phone] Urea nitrogen/Creatinine [Mass ratio] 24 mg/mg Normal 15-24 [facility] Comment on above: Order Comment: Benjiu s: M Performed By: #### L 500.33543, L500.45811 ####[facility] RIZUVFFSMR4534 [place], [place] [address]Pq# [phone] CBC W/DIFFon 01-30-2022 BASO ABS 0.00 K/CU MM Normal 0-0.2 [facility] Comment on above: Order Comment: Campu s: MRN/MD Draw Performed By: #### L 200.11211 ####[facility] [id number] [place], [place] [address]Ph# [phone] Basophils/100 WBC (Bld) 0.2 % Normal 0-2 [facility] Comment on above: Order Comment: Campu s: MRN/MD Draw Performed By: #### L 200.25885 ####[facility] [id number] [place] [address]Pr# [phone] EOS ABS 0.00 K/CU MM Normal 0-0.5 [facility] Comment on above: Order Comment: Campu s: MRN/MD Draw Performed By: #### L 200.05046 ####[facility] [id number] [place] [address]Aj# [phone] Eosinophils/100 WBC (Bld) 0.0 % Normal 0-5 [facility] Comment on above: Order Comment: Campu s: MRN/MD Draw Performed By: #### L 200.96503 ####[facility] [id number] [place] [address]Ex# [phone] Erythrocyte distribution width (RBC) [Ratio] 14.3 % Normal 11-14.5 [facility] Comment on above: Order Comment: Campu s: MRN/MD Draw Performed By: #### L 200.19274 ####[facility] OBHXLCFNTE080[address] [place], [place] [address]Ph# [phone] Hematocrit (Bld) [Volume fraction] 34.4 % Low 35.0-47.0 [facility] Comment on above: Order Comment: Campu s: MRN/MD Draw Performed By: #### L 200.13803 ####[facility] HOFFXDIELD15[address] [place], [place] [address]Ph# [phone] Hemoglobin (Bld) [Mass/Vol] 11.3 g/dL Low 11.5-15.5 [facility] Comment on above: Order Comment: Campu s: MRN/MD Draw Performed By: #### L 200.81935 ####[facility] RXJXRXLMTV[address] [place] [address]# [phone] IMMATR GRAN ABS 0.20 K/CU MM Normal Less than 2 [facility] Comment on above: Order Comment: Benjiu s: MRN/MD Draw Performed By: #### L 200.99781 ####[facility] [id number] [place], [place] [address]Ph# [phone] IMMATURE GRAN % 0.8 % Normal Less than 2 [facility] Comment on above: Order Comment: Benjiu s: MRN/MD Draw Performed By: #### L 200.14255 ####[facility] [id number] [place], [place] [address]Ph# [phone] LYMPH ABS 2.20 K/CU MM Normal 0.9-4.4 [facility] Comment on above: Order Comment: Campu s: MRN/MD Draw Performed By: #### L 200.83811 ####[facility] [id number] [place], [place] [address]Ph# [phone] Lymphocytes/100 WBC (Bld) 9.0 % Low 20-40 [facility] Comment on above: Order Comment: Campu s: MRN/MD Draw Performed By: #### L 200.18725 ####[facility] [id number] [place], [place] [address]Ph# [phone] MCHC (RBC) [Mass/Vol] 32.8 g/dL Normal 32.0-36.0 [facility] Comment on above: Order Comment: Campu s: MRN/MD Draw Performed By: #### L 200.52977 ####[facility] KOCXVFXRSV9132 [place], [place] [address]Kh# [phone] MCV (RBC) [Entitic vol] 88.0 fL Normal 80.0-99.0 [facility] Comment on above: Order Comment: Campu s: MRN/MD Draw Performed By: #### L 200.64709 ####[facility] CYFTEUWVWP0248 [place], [place] [address]Lx# [phone] MONO ABS 1.60 K/CU MM High 0.1-1.1 [facility] Comment on above: Order Comment: Benjiu s: MRN/MD Draw Performed By: #### L 200.30497 ####[facility] RWCVJCFSMV8720 [place] [address]Ph# [phone] Monocytes/100 WBC (Bld) 6.5 % Normal 2-10 [facility] Comment on above: Order Comment: Benjiu s: MRN/MD Draw Performed By: #### L 200.16284 ####[facility] BGVBGPYMAH0080 [place], [place] [address]Jl# [phone] NEUTROPHIL ABS 20.60 K/CU MM High 2.0-8.3 [facility] Comment on above: Order Comment: Campu s: MRN/MD Draw Performed By: #### L 200.65753 ####[facility] ECZSIFDPVU2540 [place], [place] [address]Ln# [phone] Neutrophils/100 WBC (Bld) 83.5 % High 45-75 [facility] Comment on above: Order Comment: Campu s: MRN/MD Draw Performed By: #### L 200.12893 ####[facility] UOFWLWGFXW2026 [place], [place] [address]Rf# [phone] Nucleated RBC/100 WBC (Bld) [Ratio] 0.0 % Normal Less than 1 [facility] Comment on above: Order Comment: Campu s: MRN/MD Draw Performed By: #### L 200.50694 ####[facility] GAAWJTPGZK2243 [place], [place] [address]Zl# [phone] Platelet mean volume (Bld) [Entitic vol] 12.0 fL Normal 9.4-12.4 [facility] Comment on above: Order Comment: Campu s: MRN/MD Draw Performed By: #### L 200.31208 ####[facility] EEVVFUEXCO2407 [place], [place] [address]Ty# [phone] PLT 198 K/CU MM Normal 150-450 [facility] Comment on above: Order Comment: Campu s: MRN/MD Draw Performed By: #### L 200.66555 ####[facility] GYJIMVGKNS5383 [place], [place] [address]Bl# [phone] RBC 3.91 M/CU MM Normal 3.90-5.30 [facility] Comment on above: Order Comment: Campu s: MRN/MD Draw Performed By: #### L 200.48186 ####[facility] BMQPAKJFSX1470 [place], [place] [address]Li# [phone] WBC 24.7 K/CUMM High 4.5-11.0 [facility] Comment on above: Order Comment: Campu s: MRN/MD Draw Performed By: #### L 200.68077 ####[facility] SQNRVIIQKU0602 [place], [place] [address]Pd# [phone] GFR ESTon 01-30-2022 IF AMER Greater than 60 Normal [facility] Comment on above: Order Comment: Campu s: M Performed By: #### L 500.89767, L500.10881 ####[facility] UDUCELMBOH4617 [place], [place] [address]Hu# [phone] IF non-AFR AMER Greater than 60 Normal [facility] Comment on above: Order Comment: Campu s: M Performed By: #### L 500.59682, L500.95745 ####[facility] BSPWBDTAOE1857 [place], [place] [address]Lm# [phone] IF AMER Greater than 60 Normal [facility] Comment on above: Order Comment: Campu s: M Performed By: #### L 500.49415, L500.13448 ####[facility] YHJKVMRPCD9632 [place], [place] [address]Hz# [phone] IF non-AFR AMER Greater than 60 Normal [facility] Comment on above: Order Comment: Campu s: M Performed By: #### L 500.20990, L500.27192 ####[facility] NZZLZDTUAK2599 [place], [place] [address]My# [phone] GLUCOSE METERon 01-30-2022 Glucose [Mass/Vol] 214 mg/dL High 70-115 [facility] Glucose [Mass/Vol] 219 mg/dL High 70-115 [facility] Glucose [Mass/Vol] 114 mg/dL Normal 70-115 [facility] Glucose [Mass/Vol] 125 mg/dL High 70-115 [facility] Glucose [Mass/Vol] 120 mg/dL High 70-115 [facility] Glucose [Mass/Vol] 86 mg/dL Normal 70-115 [facility] Glucose [Mass/Vol] 134 mg/dL High 70-115 [facility] Glucose [Mass/Vol] 105 mg/dL Normal 70-115 [facility] Glucose [Mass/Vol] 94 mg/dL Normal 70-115 [facility] Glucose [Mass/Vol] 189 mg/dL High 70-115 [facility] Glucose [Mass/Vol] 122 mg/dL High 70-115 [facility] Glucose [Mass/Vol] 188 mg/dL High 70-115 [facility] Glucose [Mass/Vol] 206 mg/dL High 70-115 [facility] MAGNESIUMon 01-30-2022 Magnesium [Mass/Vol] 1.9 mg/dL Normal 1.6-2.6 [facility] Comment on above: Order Comment: Campu s: MRN/ Draw Performed By: #### L 500.67799, L500.54966 ####[facility] JTSSJBDTTD1833 [place], [place] [address]Um# [phone] PHOSon 01-30-2022 Phosphate [Mass/Vol] 2.20 mg/dL Low 2.5-4.9 [facility] Comment on above: Order Comment: Zach s: MRN/MD Draw Result Comment: Elev ated m-protein (paraprotein) levels in the serum may beexhibited in patients with monoclonal gammopathies, causingfalsely elevated inorganic phosphorus results. Performed By: #### L 500.73244, L500.12477 ####[facility] ZYHUXIQPWZ6477 [place], [place] [address]Pq# [phone] PROG IMSon 01-30-2022 PROG IMS Normal [facility] Progress Note-Hospitalist Normal [facility] PROG.INTENon 01-30-2022 PROG.INTEN Normal [facility] Progress Note-Ham Doctor Normal [facility] BETA-HYDRO BUTon 01-29-2022 BETA-HYDRO BUT 3.92 MMOL/L High 0.02-0.27 [facility] Comment on above: Order Comment: Zach richter: M Result Comment: Bloo d ketone levels will vary depending on several factors(for example, food intake, alcohol intake and conditionssuch as ketoacidosis). Patients should be fasting 12 hoursprior to collection.PATIENT SAMPLES WITH HIGH LEVELS OF M-PROTEIN (I.E.GAMMOPATHY) MAY AFFECT THE ACCURACY OF THIS ASSAY. Performed By: #### L 500.83670 ####[facility] IRJUTWASTT3990 [place], [place] [address]Qg# [phone] BMPon 01-29-2022 Anion gap [Moles/Vol] 18 mmol/L High 5-16 [facility] Comment on above: Order Comment: Zach richter: M Performed By: #### L 500.14524, L500.72624, L500.89827, L500.84132, L500.37709 ####[facility] WJFPHTFSRT4906 [place], [place] [address]Bb# [phone] Calcium [Mass/Vol] 9.9 mg/dL Normal 8.5-10.5 [facility] Comment on above: Order Comment: Campu s: M Result Comment: NOTE NEW NORMAL RANGE DUE TO REAGENT CHANGE Performed By: #### L 500.20268, L500.05361, L500.99963, L500.61788, L500.70243 ####[facility] RHYXOSPEXB6854 [place], [place] [address]Ek# [phone] Chloride [Moles/Vol] 103 mmol/L Normal 98-107 [facility] Comment on above: Order Comment: Campu s: M Performed By: #### L 500.82451, L500.59954, L500.05435, L500.21361, L500.38936 ####[facility] CMXRDVHNHE9770 [place], [place] [address]Ee# [phone] CO2 [Moles/Vol] 15.0 mmol/L Low 21-32 [facility] Comment on above: Order Comment: Campu s: M Performed By: #### L 500.61579, L500.13223, L500.66713, L500.96637, L500.10378 ####[facility] RBBTQKHKJY1748 [place], [place] [address]Pz# [phone] Creatinine [Mass/Vol] 0.71 mg/dL Normal 0.510-0.950 [facility] Comment on above: Order Comment: Campu s: M Result Comment: Cleopatra ents receiving either N-Acetylcysteine (NAC) orMetamizole prior to venipuncture, may have falsely depressedresults. Performed By: #### L 500.90599, L500.03052, L500.91834, L500.36928, L500.76659 ####[facility] RQKBHETBAH7167 [place], [place] [address]Ka# [phone] Glucose [Mass/Vol] 412 mg/dL High 70-100 [facility] Comment on above: Order Comment: Campu s: M Result Comment: 70-1 00- Normal Fasting; 100-125 Impaired Fasting; greaterthan 126 on more than one result- Diabetes. ADA guidelines.Results may be falsely elevated after the administration ofSulfapyridine.Results may be falsely depressed after the administration ofSulfasalazine. Performed By: #### L 500.36662, L500.65416, L500.09498, L500.69315, L500.32535 ####[facility] NPGTRLGOIR2794 [place], [place] [address]Bt# [phone] Potassium [Moles/Vol] 4.2 mmol/L Normal 3.5-5.1 [facility] Comment on above: Order Comment: Campu s: M Performed By: #### L 500.99716, L500.83422, L500.84734, L500.34350, L500.33914 ####[facility] NVZEYOFZQM5483 [place], [place] [address]Uh# [phone] Sodium [Moles/Vol] 136 mmol/L Normal 136-145 [facility] Comment on above: Order Comment: Campu s: M Performed By: #### L 500.13755, L500.15814, L500.19685, L500.15069, L500.49984 ####[facility] RZYRVHJUYZ1557 [place], [place] [address]Fl# [phone] Urea nitrogen [Mass/Vol] 23 mg/dL Normal 7-26 [facility] Comment on above: Order Comment: Campu s: M Performed By: #### L 500.81339, L500.29323, L500.33416, L500.01665, L500.18168 ####[facility] NEIBYXMSEF9953 [place], [place] [address]Gp# [phone] Urea nitrogen/Creatinine [Mass ratio] 32 mg/mg High 15-24 [facility] Comment on above: Order Comment: Campu s: M Performed By: #### L 500.30442, L500.56971, L500.27692, L500.42923, L500.93562 ####[facility] RHTKIZAEQC7324 [place], [place] [address]Dc# [phone] CBC W/DIFFon 01-29-2022 BASO ABS 0.00 K/CU MM Normal 0-0.2 [facility] Comment on above: Order Comment: Campu s: M Performed By: #### L 200.57388 ####[facility] [id number] [place], [place] [address]Ph# [phone] Basophils/100 WBC (Bld) 0.1 % Normal 0-2 [facility] Comment on above: Order Comment: Campu s: M Performed By: #### L 200.72740 ####[address] [address]Ob# [phone] EOS ABS 0.00 K/CU MM Normal 0-0.5 [facility] Comment on above: Order Comment: Campu s: M Performed By: #### L 200.78482 ####[address] [address]Dh# [phone] Eosinophils/100 WBC (Bld) 0.1 % Normal 0-5 [facility] Comment on above: Order Comment: Campu s: M Performed By: #### L 200.94615 ####[facility] U[address]APZTBME[address] [place] [address]Gy# [phone] Erythrocyte distribution width (RBC) [Ratio] 13.6 % Normal 11-14.5 [facility] Comment on above: Order Comment: Campu s: M Performed By: #### L 200.71039 ####[facility] WVZFZSMGGC[address] [place] [address]Aa# [phone] Hematocrit (Bld) [Volume fraction] 38.7 % Normal 35.0-47.0 [facility] Comment on above: Order Comment: Campu s: M Performed By: #### L 200.55535 ####[facility] [id number] [place], [place] [address]Ph# [phone] Hemoglobin (Bld) [Mass/Vol] 12.6 g/dL Normal 11.5-15.5 [facility] Comment on above: Order Comment: Campu s: M Performed By: #### L 200.02504 ####[facility] EEKERBOFHQ[address] [place] [address]Dd# [phone] IMMATR GRAN ABS 0.10 K/CU MM Normal Less than 2 [facility] Comment on above: Order Comment: Campu s: M Performed By: #### L 200.69556 ####[place] [address]Ph# [phone] IMMATURE GRAN % 0.8 % Normal Less than 2 [facility] Comment on above: Order Comment: Campu s: M Performed By: #### L 200.27345 ####[place] [address]Ph# [phone] LYMPH ABS 0.80 K/CU MM Low 0.9-4.4 [facility] Comment on above: Order Comment: Campu s: M Performed By: #### L 200.65804 ####[place] [address]Ph# [phone] Lymphocytes/100 WBC (Bld) 4.4 % Low 20-40 [facility] Comment on above: Order Comment: Campu s: M Performed By: #### L [id number] ####[facility] [id number] [place], [place] [id number]# [phone] MCHC (RBC) [Mass/Vol] 32.6 g/dL Normal 32.0-36.0 [facility] Comment on above: Order Comment: Campu s: M Performed By: #### L [id number] ####[facility] [id number] [place], [place] [id number]# [phone] MCV (RBC) [Entitic vol] 86.4 fL Normal 80.0-99.0 [facility] Comment on above: Order Comment: Campu s: M Performed By: #### L [id number] ####[facility] - [place] MFFHBRDMMR9477 [place], [place] [address]Gi# [phone] MONO ABS 0.30 K/CU MM Normal 0.1-1.1 [facility] Comment on above: Order Comment: Campu s: M Performed By: #### L 200.80337 ####[facility] [place] [id number] [place], [place] [address]Ph# [phone] Monocytes/100 WBC (Bld) 1.7 % Low 2-10 [facility] Comment on above: Order Comment: Campu s: M Performed By: #### L 200.16614 ####[address] [address]Yr# [phone] NC/NC NORMOCYTIC Normal [facility] Comment on above: Order Comment: Campu s: M Performed By: #### L 200.71347 ####[place] [address]004[address]Ph# [phone] NEUTROPHIL ABS 17.00 K/CU MM High 2.0-8.3 [facility] Comment on above: Order Comment: Campu s: M Performed By: #### L 200.08217 ####[address] [address]Rj# [phone] Neutrophils/100 WBC (Bld) 92.9 % High 45-75 [facility] Comment on above: Order Comment: Campu s: M Performed By: #### L 200.13894 ####[facility] [place] SX[address]ISXA[address] [place] [address]Zl# [phone] Nucleated RBC/100 WBC (Bld) [Ratio] 0.0 % Normal Less than 1 [facility] Comment on above: Order Comment: Campu s: M Performed By: #### L 200.60579 ####[facility] [place] [id number] [place], [place] [address]Ph# [phone] Platelet mean volume (Bld) [Entitic vol] 13.5 fL High 9.4-12.4 [facility] Comment on above: Order Comment: Campu s: M Performed By: #### L 200.89076 ####[facility] [place] YCJWSDVDQZ1370 [place], [place] [address]Yx# [phone] PLT 174 K/CU MM Normal 150-450 [facility] Comment on above: Order Comment: Campu s: M Performed By: #### L 200.07617 ####[facility] [place] NEDNQUSKBX6676 [place], [place] [address]Ze# [phone] PLT EST ADEQUATE [facility] Comment on above: Order Comment: Campu s: M Performed By: #### L 200.31293 ####[facility] [place] HTEXZSKLFC6864 [place], [place] [address]Ke# [phone] RBC 4.48 M/CU MM Normal 3.90-5.30 [facility] Comment on above: Order Comment: Campu s: M Performed By: #### L 200.49763 ####[facility] [place] TJMPLCWIVD1495 [place], [place] [address]Hv# [phone] WBC 18.3 K/CUMM High 4.5-11.0 [facility] Comment on above: Order Comment: Campu s: M Performed By: #### L 200.84923 ####[facility] [place] L[address] [place] [address]Db# [phone] CONS.INTENon 01-29-2022 CONS.INTEN [facility] Consultation-Intensivi st [facility] Stacie 01-29-2022 EMERGENCY PHYSICIAN REPORT This is a preliminary report only, as the practitioner review and authentication has not occurred. Normal [facility] 01-29-2022 IF AMER Greater than 60 [facility] Comment on above: Order Comment: Campu s: M Performed By: #### L 500.45132, L500.80745, L500.76268, L500.95295, L500.28525 ####[facility] [place] POALLODKTC5042 [place], [place] [address]Nt# [phone] IF non-AFR AMER Greater than 60 Normal [facility] Comment on above: Order Comment: Zach s: M Performed By: #### L 500.06437, L500.90974, L500.06089, L500.66250, L500.48701 ####[facility] [place] SUPUURBISO6142 [place], [place] [address]Bw# [phone] GLUCOSE METERon 01-29-2022 Glucose [Mass/Vol] 135 mg/dL High 70-115 [facility] Glucose [Mass/Vol] 146 mg/dL High 70-115 [facility] Glucose [Mass/Vol] 141 mg/dL High 70-115 [facility] Glucose [Mass/Vol] 117 mg/dL High 70-115 [facility] Glucose [Mass/Vol] 151 mg/dL High 70-115 [facility] Glucose [Mass/Vol] 221 mg/dL High 70-115 [facility] Glucose [Mass/Vol] 286 mg/dL High 70-115 [facility] Glucose [Mass/Vol] 382 mg/dL High 70-115 [facility] Glucose [Mass/Vol] 402 mg/dL High 70-115 [facility] HCGon 01-29-2022 HCG SER RESULT Negative Normal NEGATIVE [facility] Comment on above: Order Comment: Zach s: M Performed By: #### L 500.15923, L500.75868, L500.63487, L500.60167, L500.13246 ####[facility] [place] WSYLEGVLJP6483 [place], [place] [address]Df# [phone] HP.IMS.ADMon 01-29-2022 Admission-H&P Normal [facility] HP.IMS.ADM Normal [facility] LIPASEon 01-29-2022 Lipase [Catalytic activity/Vol] 22 U/L Normal 12-60 [facility] Comment on above: Order Comment: Zach s: M Result Comment: NOTE NEW NORMAL RANGE DUE TO REAGENT CHANGE Performed By: #### L 500.10869, L500.12204, L500.88649, L500.35142, L500.82279 ####[facility] [place] PWKVWJJXCV8074 [place], [place] [address]Wg# [phone] LIVERon 01-29-2022 Albumin [Mass/Vol] 4.5 g/dL Normal 3.2-5.0 [facility] Comment on above: Order Comment: Campu s: M Performed By: #### L 500.13992, L500.57376, L500.12439, L500.19272, L500.19300 ####[facility] [place] QQZXJPYAGF2802 [place], [place] [address]Wm# [phone] Albumin/Globulin [Mass ratio] 1.7 {ratio} Normal 0.8-2.0 [facility] Comment on above: Order Comment: Campu s: M Performed By: #### L 500.07333, L500.87966, L500.89130, L500.92899, L500.04083 ####[facility] [place] XRJPGNUUEA7625 [place], [place] [address]Cp# [phone] ALK PHOS 104 U/L Normal 45-117 [facility] Comment on above: Order Comment: Campu s: M Performed By: #### L 500.67844, L500.30671, L500.22764, L500.22797, L500.94226 ####[facility] [place] FQTRZUBPXX8292 [place], [place] [address]Vc# [phone] ALT [Catalytic activity/Vol] 28 U/L Normal 13-61 [facility] Comment on above: Order Comment: Campu s: M Result Comment: RESU LTS MAY BE FALSELY DEPRESSED AFTER THE ADMINISTRATION OFSULFASALAZINE AND/OR SULFAPYRIDINE. Performed By: #### L 500.62650, L500.75865, L500.81625, L500.71458, L500.71872 ####[facility] [place] QJWOHLTOXS4022 [place], [place] [address]Ok# [phone] AST [Catalytic activity/Vol] 24 U/L Normal 8-34 [facility] Comment on above: Order Comment: Campu s: M Result Comment: RESU LTS MAY BE FALSELY DEPRESSED AFTER THE ADMINISTRATION OFSULFASALAZINE AND/OR SULFAPYRIDINE. Performed By: #### L 500.52487, L500.86510, L500.16106, L500.46788, L500.16013 ####[facility] [place] QBNNNUMKVT8543 [place], [place] [address]Gb# [phone] BILI DIRECT 0.3 MG/DL Normal 0.00-0.36 [facility] Comment on above: Order Comment: Campu s: M Result Comment: NOTE NEW NORMAL RANGE DUE TO REAGENT CHANGE Performed By: #### L 500.88583, L500.67408, L500.80359, L500.77873, L500.77494 ####[facility] [place] GCAENGTRAG9862 [place], [place] [address]Uh# [phone] BILI TOTAL 0.90 MG/DL Normal 0.2-1.0 [facility] Comment on above: Order Comment: Campu s: M Performed By: #### L 500.50527, L500.78117, L500.73978, L500.80271, L500.30826 ####[facility] [place] TELVWHRGUB7042 [place], [place] [address]Hg# [phone] Globulin (S) [Mass/Vol] 2.7 g/dL Normal 2.2-4.2 [facility] Comment on above: Order Comment: Campu s: M Performed By: #### L 500.47638, L500.87987, L500.84568, L500.15727, L500.14860 ####[facility] [place] CSDXMMCCVO1442 [place], [place] [address]Kd# [phone] Protein [Mass/Vol] 7.2 g/dL Normal 6.0-8.5 [facility] Comment on above: Order Comment: Campu s: M Performed By: #### L 500.85737, L500.43228, L500.70811, L500.30509, L500.67081 ####[facility] [place] UDTJWNXKRV5887 [place], [place] [address]Mf# [phone] MRSA PCRon 01-29-2022 MRSA PCR Negative Normal NEGATIVE [facility] Comment on above: Order Comment: Zach s: M Result Comment: SULMA SCHMITZ NOTE: TESTING DONE BY PCR TECHNOLOGY.The SA Nasal complete MRSA assay on the Vaccibody GeneXperthas not been validated for use on patients under 21 years ofage. All patients under 21 years of age, run on theKoremXpert will be confirmed by a Blood [place] plate, followedby an SHINE, to confirm MRSA. Performed By: #### L 770.98380 ####[facility] [place] BXAXSACKHN3603 [place], [place] [address]Xp# [phone] SA PCR Positive High NEGATIVE [facility] Comment on above: Order Comment: Zach s: Millicent Result Comment: PLESelene SCHMITZ NOTE: TESTING DONE BY PCR TECHNOLOGY. Performed By: #### L 770.91181 ####[facility] [place] [address] [place] [address]Wy# [phone] PORTABLE CHESTon 01-29-2022 PORTABLE CHEST Normal [facility] [id number] 01-29-2022 SARS-CoV-2 (COVID-19) RNA DANIEL+probe Ql (Unsp spec) Negative Invalid Interpretation Code Negative [facility] Comment on above: Order Comment: Zach richter: [...] performed by PCR. Performed By: #### L 770.30673 ####[facility] [place] SXCKZWOEXH3910 [place], [place] [address]Ca# [phone] UA COMPLETEon 01-29-2022 Color (U) Straw Normal [facility] Comment on above: Order Comment: Campu s: M Performed By: #### L 600.88394 ####[facility] [place] VXFWMYVFJY[address] [place] [address]Vc# [phone] Glucose (U) [Mass/Vol] 500 mg/dL Normal NORMAL [facility] Comment on above: Order Comment: Campu s: M Performed By: #### L 600.81233 ####[facility] [place] W[address]KOGXI[address] [place] [address]Hk# [phone] UA APPEARANCE Clear Normal CLEAR [facility] Comment on above: Order Comment: Campu s: M Performed By: #### L 600.04176 ####[facility] [place] XSCOHSMEAJ[address] [place] [address]Sq# [phone] UA BILIRUBIN Negative Normal NEGATIVE [facility] Comment on above: Order Comment: Campu s: M Performed By: #### L 600.84553 ####[facility] [place] XMUPXVNWBU[address] [place] [address]Mx# [phone] UA BLOOD Negative Normal NEGATIVE [facility] Comment on above: Order Comment: Campu s: M Performed By: #### L 600.33667 ####[facility] [place] CYMVHHCBMX[address] [place] [address]Uk# [phone] UA KETONE 80 Normal NEGATIVE [facility] Comment on above: Order Comment: Campu s: M Performed By: #### L 600.89552 ####[facility] [place] XUHIYANMBK[address] [place] [address]Om# [phone] UA LK ESTERASE Negative Normal NEGATIVE [facility] Comment on above: Order Comment: Campu s: M Performed By: #### L 600.26829 ####[facility] [place] BYJENUFTEH[address] [place] [address]Lw# [phone] UA NITRITE Negative Normal NEGATIVE [facility] Comment on above: Order Comment: Campu s: M Performed By: #### L 600.85011 ####[facility] [place] IXIQRAUBCI9532 [place], [place] [address]Eu# [phone] UA PH 6.0 Normal 5-6 [facility] Comment on above: Order Comment: Campu s: M Performed By: #### L 600.91088 ####[facility] [place] PMRCPNPHNM1291 [place], [place] [address]Pg# [phone] UA PROTEIN Negative Normal NEGATIVE [facility] Comment on above: Order Comment: Campu s: M Performed By: #### L 600.78249 ####[facility] [place] YTTDPFSTLV[address] [place] [address]Ji# [phone] UA SPEC GRAV 1.028 Normal 1.005-1.030 [facility] Comment on above: Order Comment: Campu s: M Performed By: #### L 600.48614 ####[address] [address]Pn# [phone] UA UROBILINOGEN Negative Normal NORMAL [facility] Comment on above: Order Comment: Campu s: M Performed By: #### L 600.20889 ####[facility] [place] AWBRLPYPBJ[address] [place] [address]Rh# [phone] VBG PHon 01-29-2022 VBG PH 7.36 MMHG Normal 7.31-7.41 [facility] Comment on above: Order Comment: Campu s: M Performed By: #### L 100.02153 ####[facility] [place] SQDPJXIIYC[address] [place] [address]Pf# [phone] BMPon 12-30-2021 Anion gap [Moles/Vol] 4 mmol/L Low 5-16 [facility] Comment on above: Order Comment: Campu s: M Performed By: #### L 500.05291, L500.78617 ####[facility] [place] RIFZPMVLMJ[address] [place] [address]Pz# [phone] Calcium [Mass/Vol] 8.8 mg/dL Normal 8.5-10.5 [facility] Comment on above: Order Comment: Campu s: M Result Comment: NOTE NEW NORMAL RANGE DUE TO REAGENT CHANGE Performed By: #### L 500.14930, L500.89410 ####[facility] [place] XPLABNXJWY5944 [place], [place] [address]Yy# [phone] Chloride [Moles/Vol] 109 mmol/L High 98-107 [facility] Comment on above: Order Comment: Campu s: M Performed By: #### L 500.50121, L500.42494 ####[facility] [place] FKRYLLLDFC7955 [place], [place] [address]Oz# [phone] CO2 [Moles/Vol] 28.0 mmol/L Normal 21-32 [facility] Comment on above: Order Comment: Campu s: M Performed By: #### L 500.11060, L5.66065 ####[facility] [place] UXHEGOFTBV[address] [place] [address]Mh# [phone] Creatinine [Mass/Vol] 0.64 mg/dL Normal 0.510-0.950 [facility] Comment on above: Order Comment: Campu s: M Result Comment: Cleopatra ents receiving either N-Acetylcysteine (NAC) orMetamizole prior to venipuncture, may have falsely depressedresults. Performed By: #### L 500.98266, L5.01797 ####[facility] [place] YGABYDDHRP[address] [place] [address]Tx# [phone] Glucose [Mass/Vol] 160 mg/dL High 70-100 [facility] Comment on above: Order Comment: Campu s: M Result Comment: Delt a check [id number] Normal Fasting; 100-125 Impaired Fasting; greaterthan 126 on more than one result- Diabetes. ADA guidelines.Results may be falsely elevated after the administration ofSulfapyridine.Results may be falsely depressed after the administration ofSulfasalazine. Performed By: #### L 500.86440, L500.21412 ####[facility] [place] ZFAJZIPWYE9784 [place], [place] [address]Km# [phone] Potassium [Moles/Vol] 3.8 mmol/L Normal 3.5-5.1 [facility] Comment on above: Order Comment: Campu s: M Performed By: #### L 500.26860, L500.91359 ####[facility] [place] HBXBYZOQWW3144 [place], [place] [address]Vi# [phone] Sodium [Moles/Vol] 141 mmol/L Normal 136-145 [facility] Comment on above: Order Comment: Campu s: M Performed By: #### L 500.56205, L5.27101 ####[facility] [place] JDAERMCFTC9580 [place], [place] [address]Cz# [phone] Urea nitrogen [Mass/Vol] 9 mg/dL Normal 7-26 [facility] Comment on above: Order Comment: Campu s: M Performed By: #### L 500.22714, L500.83553 ####[facility] [place] TJFMYGDGRQ8856 [place], [place] [address]Kk# [phone] Urea nitrogen/Creatinine [Mass ratio] 14 mg/mg Low 15-24 [facility] Comment on above: Order Comment: Campu s: M Performed By: #### L 500.59138, L500.45349 ####[facility] [place] ICDKITCQSJ945[address] [place] [address]Je# [phone] DISCH.SUMon 12-30-2021 DISCH.SUM Normal [facility] GFR ESTon 12-30-2021 IF AMER Greater than 60 Normal [facility] Comment on above: Order Comment: Campu s: M Performed By: #### L 500.11438, L500.05938 ####[facility] [place] ABYNJALWVO0695 [place], [place] [address]Bo# [phone] IF non-AFR AMER Greater than 60 Normal [facility] Comment on above: Order Comment: Campu s: M Performed By: #### L 500.10492, L500.68346 ####[facility] [place] TEAVRAKVOI3525 [place], [place] [address]Pp# [phone] GLUCOSE METERon 12-30-2021 Glucose [Mass/Vol] 141 mg/dL High 70-115 [facility] Glucose [Mass/Vol] 184 mg/dL High 70-115 [facility] Glucose [Mass/Vol] 269 mg/dL High 70-115 [facility] HGB A1C GLYCOHBon 12-30-2021 HbA1c (Bld) [Mass fraction] 6.2 % High 4.3-6.0 [facility] Comment on above: Order Comment: Campu s: M Performed By: #### L 550.88644 ####[facility] [place] WHOJSSGMVB6905 [place], [place] [address]Jn# [phone] BMPon 12-29-2021 Anion gap [Moles/Vol] 7 mmol/L Normal 5-16 [facility] Comment on above: Order Comment: Campu s: M Performed By: #### L 500.13779, L500.02220 ####[facility] [place] HDKZJISWYW6015 [place], [place] [address]Wb# [phone] Calcium [Mass/Vol] 7.1 mg/dL Low 8.5-10.5 [facility] Comment on above: Order Comment: Campu s: M Result Comment: NOTE NEW NORMAL RANGE DUE TO REAGENT CHANGE Performed By: #### L 500.30892, L500.54803 ####[facility] [place] VVXXDJKNER5161 [place], [place] [address]Qb# [phone] Chloride [Moles/Vol] 114 mmol/L High 98-107 [facility] Comment on above: Order Comment: Campu s: M Performed By: #### L 500.41185, L500.27207 ####[facility] [place] XADVGSFSEQ2983 [place], [place] [address]He# [phone] CO2 [Moles/Vol] 22.0 mmol/L Normal 21-32 [facility] Comment on above: Order Comment: Campu s: M Performed By: #### L 500.04580, L500.35416 ####[facility] [place] VBNIMDMFWV4734 [place], [place] [address]Co# [phone] Creatinine [Mass/Vol] 0.52 mg/dL Normal 0.510-0.950 [facility] Comment on above: Order Comment: Benjiu s: M Result Comment: Cleopatra ents receiving either N-Acetylcysteine (NAC) orMetamizole prior to venipuncture, may have falsely depressedresults. Performed By: #### L 500.84539, L500.04434 ####[facility] [place] RUVNPPMARZ9123 [place], [place] [address]Jp# [phone] Glucose [Mass/Vol] 94 mg/dL Normal 70-100 [facility] Comment on above: Order Comment: Campu s: M Result Comment: 70-1 00- Normal Fasting; 100-125 Impaired Fasting; greaterthan 126 on more than one result- Diabetes. ADA guidelines.Results may be falsely elevated after the administration ofSulfapyridine.Results may be falsely depressed after the administration ofSulfasalazine. Performed By: #### L 500.70417, L500.80984 ####[facility] [place] ELVBCBLMDE8927 [place], [place] [address]Gz# [phone] Potassium [Moles/Vol] 3.2 mmol/L Low 3.5-5.1 [facility] Comment on above: Order Comment: Benjiu s: M Result Comment: Slig ht Hemolysis, Result may be affected. Performed By: #### L 500.71413, L500.21932 ####[facility] RLCCRPCLQW[address] [place] [address]Ic# [phone] Sodium [Moles/Vol] 143 mmol/L Normal 136-145 [facility] Comment on above: Order Comment: Benjiu s: M Result Comment: Delt a check reviewed Performed By: #### L 500.03574, L500.66862 ####[facility] FNQQCBAEPW6835 [place], [place] [address]Dt# [phone] Urea nitrogen [Mass/Vol] 6 mg/dL Low 7-26 [facility] Comment on above: Order Comment: Benjiu s: M Performed By: #### L 500.63062, L500.33232 ####[facility] RHGNPALLJR1801 [place], [place] [address]Oe# [phone] Urea nitrogen/Creatinine [Mass ratio] 11 mg/mg Low 15-24 [facility] Comment on above: Order Comment: Campu s: M Performed By: #### L 500.77330, L500.13502 ####[facility] BKSTPDTSMC3503 [place], [place] [address]Fe# [phone] CBC W/DIFFon 12-29-2021 BASO ABS 0.00 K/CU MM Normal 0-0.2 [facility] Comment on above: Order Comment: Campu s: M Performed By: #### L 200.54193 ####[facility] NL[address]DRSMPL[address] [place], [place] [address]Ph# [phone] Basophils/100 WBC (Bld) 0.3 % Normal 0-2 [facility] Comment on above: Order Comment: Campu s: M Performed By: #### L 200.36599 ####[facility] CLOZMNGIBC[address] [place] [address]Io# [phone] EOS ABS 0.00 K/CU MM Normal 0-0.5 [facility] Comment on above: Order Comment: Campu s: M Performed By: #### L 200.65816 ####[facility] LIWMHZKIDH[address] [place] [address]Db# [phone] Eosinophils/100 WBC (Bld) 0.2 % Normal 0-5 [facility] Comment on above: Order Comment: Campu s: M Performed By: #### L 200.02477 ####[facility] BUUWEHOUAV[address] [place] [address]It# [phone] Erythrocyte distribution width (RBC) [Ratio] 13.5 % Normal 11-14.5 [facility] Comment on above: Order Comment: Campu s: M Performed By: #### L 200.63309 ####[facility] ZKVWTNUZEH[address] [place] [address]Mw# [phone] Hematocrit (Bld) [Volume fraction] 34.3 % Low 35.0-47.0 [facility] Comment on above: Order Comment: Campu s: M Performed By: #### L 200.47453 ####[facility] [place] RPNEFZLLKR[address] [place] [address]Bv# [phone] Hemoglobin (Bld) [Mass/Vol] 11.5 g/dL Normal 11.5-15.5 [facility] Comment on above: Order Comment: Campu s: M Performed By: #### L 200.70477 ####[place] [address]004208Ph# [phone] IMMATR GRAN ABS 0.20 K/CU MM Normal Less than 2 [facility] Comment on above: Order Comment: Campu s: M Performed By: #### L 200.13582 ####[place] [address]004[address]Ph# [phone] IMMATURE GRAN % 1.8 % Normal Less than 2 [facility] Comment on above: Order Comment: Campu s: M Performed By: #### L 200.92392 ####[facility] JAVTKQOAXC[address] [place], [place] [address]Ph# [phone] LYMPH ABS 3.60 K/CU MM Normal 0.9-4.4 [facility] Comment on above: Order Comment: Campu s: M Performed By: #### L 200.99826 ####[facility] [id number] [place], [place] [id number]# [phone] Lymphocytes/100 WBC (Bld) 29.4 % Normal 20-40 [facility] Comment on above: Order Comment: Campu s: M Performed By: #### L [id number] ####[facility] [id number] [place] [id number]# [phone] MCHC (RBC) [Mass/Vol] 33.5 g/dL Normal 32.0-36.0 [facility] Comment on above: Order Comment: Campu s: M Performed By: #### L 200.01947 ####[facility] ETDYPVPARA3412 [place], [place] [address]Oa# [phone] MCV (RBC) [Entitic vol] 86.2 fL Normal 80.0-99.0 [facility] Comment on above: Order Comment: Campu s: M Performed By: #### L 200.91470 ####[facility] FEUNFGKUCQ[address] [place] [address]Tq# [phone] MONO ABS 0.80 K/CU MM Normal 0.1-1.1 [facility] Comment on above: Order Comment: Campu s: M Performed By: #### L 200.54304 ####[place] [address]Ph# [phone] Monocytes/100 WBC (Bld) 6.7 % Normal 2-10 [facility] Comment on above: Order Comment: Campu s: M Performed By: #### L 200.32915 ####[facility] [id number] [place], [place] [address]Ph# [phone] NEUTROPHIL ABS 7.60 K/CU MM Normal 2.0-8.3 [facility] Comment on above: Order Comment: Campu s: M Performed By: #### L 200.00170 ####[address] [address]Is# [phone] Neutrophils/100 WBC (Bld) 61.6 % Normal 45-75 [facility] Comment on above: Order Comment: Campu s: M Performed By: #### L 200.64308 ####[facility] LTZCDUWNKE[address] [place] [address]Pi# [phone] Nucleated RBC/100 WBC (Bld) [Ratio] 0.0 % Normal Less than 1 [facility] Comment on above: Order Comment: Campu s: M Performed By: #### L 200.84410 ####[facility] [id number] [place], [place] [address]Ph# [phone] Platelet mean volume (Bld) [Entitic vol] 11.7 fL Normal 9.4-12.4 [facility] Comment on above: Order Comment: Campu s: M Performed By: #### L 200.87687 ####[facility] QYUQKGTLIU1988 [place], [place] [address]Aa# [phone] PLT 167 K/CU MM Normal 150-450 [facility] Comment on above: Order Comment: Campu s: M Performed By: #### L 200.22104 ####[facility] KLFOUYWOOU[address] [place] [address]Vu# [phone] RBC 3.98 M/CU MM Normal 3.90-5.30 [facility] Comment on above: Order Comment: Campu s: M Performed By: #### L 200.29394 ####[facility] ETFVRGWGHB[address] [place] [address]Vl# [phone] WBC 12.4 K/CUMM High 4.5-11.0 [facility] Comment on above: Order Comment: Campu s: M Performed By: #### L 200.80531 ####[facility] ZHAYQZYFDG[address] [place] [address]Vp# [phone] GFR ESTon 12-29-2021 IF AMER Greater than 60 Normal [facility] Comment on above: Order Comment: Campu s: M Performed By: #### L 500.46937, L500.36067 ####[facility] XQFKPCURLH194[address] [place] [address] 84[address]Zv# [phone] IF non-AFR AMER Greater than 60 Normal [facility] Comment on above: Order Comment: Campu s: M Performed By: #### L 500.58800, L500.45699 ####[facility] NNGHMZWQLA0101[address] [place] [address]Gb# [phone] GLUCOSE METERon 12-29-2021 Glucose [Mass/Vol] 266 mg/dL High 70-115 [facility] Glucose [Mass/Vol] 109 mg/dL Normal 70-115 [facility] Glucose [Mass/Vol] 67 mg/dL Low 70-115 [facility] Glucose [Mass/Vol] 49 mg/dL Critically low 70-115 [facility] Glucose [Mass/Vol] 63 mg/dL Low 70-115 [facility] Glucose [Mass/Vol] 98 mg/dL Normal 70-115 [facility] PROG IMSon 12-29-2021 PROG IMS Normal [facility] Progress Note-Hospitalist Normal [facility] ADM.INTERVon 12-28-2021 ADM.INTERV Normal [facility] Admission Interval Note Normal [facility] BETA-HYDRO BUTon 12-28-2021 BETA-HYDRO BUT 4.79 MMOL/L High 0.02-0.27 [facility] Comment on above: Order Comment: Campu s: M Result Comment: Bloo d ketone levels will vary depending on several factors(for example, food intake, alcohol intake and conditionssuch as ketoacidosis). Patients should be fasting 12 hoursprior to collection.PATIENT SAMPLES WITH HIGH LEVELS OF M-PROTEIN (I.E.GAMMOPATHY) MAY AFFECT THE ACCURACY OF THIS ASSAY. Performed By: #### L 500.53973, L500.78536, L500.77520 ####[facility] BYKCGUBWZM6686 [place], [place] [address]Yt# [phone] BMPon 12-28-2021 Anion gap [Moles/Vol] 13 mmol/L Normal 5-16 [facility] Comment on above: Order Comment: Campu s: M Performed By: #### L 500.83703, L500.09729, L500.89429 ####[facility] ISILJPZFZL3853 [place], [place] [address]Wj# [phone] Calcium [Mass/Vol] 8.9 mg/dL Normal 8.5-10.5 [facility] Comment on above: Order Comment: Campu s: M Result Comment: NOTE NEW NORMAL RANGE DUE TO REAGENT CHANGE Performed By: #### L 500.89212, L500.99717, L500.26181 ####[facility] OXMWOCFNKZ4901 [place], [place] [address]Qj# [phone] Chloride [Moles/Vol] 105 mmol/L Normal 98-107 [facility] Comment on above: Order Comment: Zach s: M Performed By: #### L 500.01417, L500.69299, L500.05458 ####[facility] SIMIUGQTPW1025 [place], [place] [address]Kq# [phone] CO2 [Moles/Vol] 18.0 mmol/L Low 21-32 [facility] Comment on above: Order Comment: Zach s: M Performed By: #### L 500.58396, L500.30731, L500.49675 ####[facility] DJNOLNOPFZ7338 [place], [place] [address]Cb# [phone] Creatinine [Mass/Vol] 0.61 mg/dL Normal 0.510-0.950 [facility] Comment on above: Order Comment: Zach s: M Result Comment: Cleopatra ents receiving either N-Acetylcysteine (NAC) orMetamizole prior to venipuncture, may have falsely depressedresults. Performed By: #### L 500.41893, L500.82137, L500.46702 ####[facility] ERYWNBURWY3257 [place], [place] [address]Aj# [phone] Glucose [Mass/Vol] 80 mg/dL Normal 70-100 [facility] Comment on above: Order Comment: Zach s: M Result Comment: 70-1 00- Normal Fasting; 100-125 Impaired Fasting; greaterthan 126 on more than one result- Diabetes. ADA guidelines.Results may be falsely elevated after the administration ofSulfapyridine.Results may be falsely depressed after the administration ofSulfasalazine. Performed By: #### L 500.11617, L500.11718, L500.32578 ####[facility] LTPQAUVCCO2172 [place], [place] [address]Tp# [phone] Potassium [Moles/Vol] 2.9 mmol/L Critically low 3.5-5.1 [facility] Comment on above: Order Comment: Zach s: M Result Comment: Slig ht Hemolysis, Result may be affected.Critical Result(s)Called at: 19:38:48 on 12/28/2021 by lls. Called to vinh back by: DR MORLEY Performed By: #### L 500.07002, L500.22521, L500.68264 ####[facility] GWVFJDWKYS9806 [place], [place] [address]Vt# [phone] Sodium [Moles/Vol] 136 mmol/L Normal 136-145 [facility] Comment on above: Order Comment: Campu s: M Performed By: #### L 500.75841, L500.88382, L500.18807 ####[facility] CSMRJGVCSQ1512 [place], [place] [address]Bs# [phone] Urea nitrogen [Mass/Vol] 11 mg/dL Normal 7-26 [facility] Comment on above: Order Comment: Campu s: M Performed By: #### L 500.79696, L500.65724, L500.90390 ####[facility] IHMBTFAUAN8332 [place], [place] [address]Ns# [phone] Urea nitrogen/Creatinine [Mass ratio] 18 mg/mg Normal 15-24 [facility] Comment on above: Order Comment: Campu s: M Performed By: #### L 500.91710, L500.51061, L500.50052 ####[facility] DLAODEYXZT0940 [place], [place] [address]Hh# [phone] Stacei 12-28-2021 EMERGENCY PHYSICIAN REPORT This is a preliminary report only, as the practitioner review and authentication has not occurred. Normal [facility] ER Normal [facility] GFR ESTon 12-28-2021 IF AMER Greater than 60 Normal [facility] Comment on above: Order Comment: Campu s: M Performed By: #### L 500.41663, L500.17329, L500.04493 ####[facility] TCEFMGLCUI0033 [place], [place] [address]Jg# [phone] IF non-AFR AMER Greater than 60 [facility] Comment on above: Order Comment: Campu s: M Performed By: #### L 500.95607, L500.94626, L500.91789 ####[facility] NXSNVYGRWX5770 [place], [place] [address]Co# [phone] VBG PANELon 12-28-2021 BASE EXCESS -4.6 MMOL/L Low 0-2 [facility] Comment on above: Order Comment: Campu s: M Performed By: #### L 100.13814 ####[facility] YVLDKIWNMJ2619 [place], [place] [address]Fc# [phone] Body temperature 98.6 [degF] Normal [facility] Comment on above: Order Comment: Campu s: M Performed By: #### L 100.82784 ####[facility] JGZCVJMYAF[address] [place] [address]Yg# [phone] EQUIPMENT UNKNOWN [facility] Comment on above: Order Comment: Campu s: M Performed By: #### L 100.12017 ####[facility] EIQDMOWGTZ3314 [place], [place] [address]Ea# [phone] HCO3 (Bld) [Moles/Vol] 17.6 mmol/L Low 22-26 M [facility] Comment on above: Order Comment: Campu s: M Performed By: #### L 100.47502 ####[facility] GRVSJZNPHK3273 [place], [place] [address]Jx# [phone] Hemoglobin (Bld) [Mass/Vol] 13.9 g/dL Low 16.0-22.0 [facility] Comment on above: Order Comment: Campu s: M Performed By: #### L 100.69315 ####[facility] PILWTPEVRF[address] [place] [address]Yi# [phone] SAMPLE SITE UNKNOWN [facility] Comment on above: Order Comment: Campu s: M Performed By: #### L 100.66304 ####[facility] TEVTJNSICF[address] [place] [address]Tp# [phone] SAMPLE TYPE VENOUS Normal [facility] Comment on above: Order Comment: Campu s: M Performed By: #### L 100.24730 ####[facility] EVVBWRSIZJ0151 [place], [place] [address]Kn# [phone] VBG CARBOXYHGB 1.5 % Normal 0-10 [facility] Comment on above: Order Comment: Campu s: M Performed By: #### L 100.09101 ####[facility] BVXOTTBSUF[address] [place] [address]Vn# [phone] VBG METHGB 0.3 % Low 0.4-1.5 [facility] Comment on above: Order Comment: Campu s: M Performed By: #### L 100.43180 ####[facility] HZLHRZLNLQ[address] [place] [address]Gd# [phone] VBG O2 CAPACITY 19.0 VOL% Normal [facility] Comment on above: Order Comment: Campu s: M Performed By: #### L 100.21453 ####[facility] ISOKNZAGOV232[address] [place] [address]Kd# [phone] VBG O2 HG SATUR 88.4 % High 40-70 [facility] Comment on above: Order Comment: Campu s: M Performed By: #### L 100.53643 ####[facility] TEECTFEPUZ6263 [place], [place] [address]Lp# [phone] VBG PCO2 25.6 MMHG Critically low 40-50 [facility] Comment on above: Order Comment: Campu s: M Result Comment: VALU E IS OUTSIDE OF THE VERIFIED RANGES OF THIS ANALYZER.ADAM CHOE. PCO2 25.6 MMHG Performed By: #### L 100.59322 ####[facility] DPTEYKCQAC6090 [place], [place] [address]Db# [phone] VBG PH 7.46 MMHG High 7.31-7.41 [facility] Comment on above: Order Comment: Campu s: M Performed By: #### L 100.92474 ####[facility] UASDZARFEE3695 [place], [place] [address]Me# [phone] VBG PO2 54.3 MMHG High 35-45 [facility] Comment on above: Order Comment: Campu s: M Performed By: #### L 100.41753 ####[facility] QIFQKSSLJU0049 [place], [place] [address]Rn# [phone] BETA-HYDRO BUTon 12-27-2021 BETA-HYDRO BUT 3.29 MMOL/L High 0.02-0.27 [facility] Comment on above: Order Comment: Campu s: M Result Comment: Bloo d ketone levels will vary depending on several factors(for example, food intake, alcohol intake and conditionssuch as ketoacidosis). Patients should be fasting 12 hoursprior to collection.PATIENT SAMPLES WITH HIGH LEVELS OF M-PROTEIN (I.E.GAMMOPATHY) MAY AFFECT THE ACCURACY OF THIS ASSAY. Performed By: #### L 500.36278 ####[facility] SHZEUYJNHC5597 [place], [place] [address]Ug# [phone] BMPon 12-27-2021 Anion gap [Moles/Vol] 15 mmol/L Normal 5-16 [facility] Comment on above: Order Comment: Campu s: M Performed By: #### L 500.35093, L500.06410, L500.47326 ####[facility] YDASSFLTXA9605 [place], [place] [address]Zl# [phone] Calcium [Mass/Vol] 9.2 mg/dL Normal 8.5-10.5 [facility] Comment on above: Order Comment: Campu s: M Result Comment: NOTE NEW NORMAL RANGE DUE TO REAGENT CHANGE Performed By: #### L 500.43307, L500.44048, L500.50511 ####[facility] SEZGJDQENO3724 [place], [place] [address]Qy# [phone] Chloride [Moles/Vol] 107 mmol/L Normal 98-107 [facility] Comment on above: Order Comment: Campu s: M Performed By: #### L 500.09280, L500.60246, L500.26771 ####[facility] NNMRTIYCWC7702 [place], [place] [address]Wy# [phone] CO2 [Moles/Vol] 18.0 mmol/L Low 21-32 [facility] Comment on above: Order Comment: Zach s: M Performed By: #### L 500.70456, L500.66423, L500.73843 ####[facility] NMQMFEVFWH5896 [place], [place] [address]Sa# [phone] Creatinine [Mass/Vol] 0.67 mg/dL Normal 0.510-0.950 [facility] Comment on above: Order Comment: Benjiu s: M Result Comment: Cleopatra ents receiving either N-Acetylcysteine (NAC) orMetamizole prior to venipuncture, may have falsely depressedresults. Performed By: #### L 500.28481, L500.37896, L500.19784 ####[facility] DTJEHQELHK0086 [place], [place] [address]Db# [phone] Glucose [Mass/Vol] 118 mg/dL High 70-100 [facility] Comment on above: Order Comment: Benjiu s: M Result Comment: 70-1 00- Normal Fasting; 100-125 Impaired Fasting; greaterthan 126 on more than one result- Diabetes. ADA guidelines.Results may be falsely elevated after the administration ofSulfapyridine.Results may be falsely depressed after the administration ofSulfasalazine. Performed By: #### L 500.05750, L500.54975, L500.10561 ####[facility] NFMOPJHXPL4998 [place], [place] [address]Mg# [phone] Potassium [Moles/Vol] 3.3 mmol/L Low 3.5-5.1 [facility] Comment on above: Order Comment: Zach s: M Performed By: #### L 500.75950, L500.15188, L500.85161 ####[facility] ITGFQPRAFP1821 [place], [place] [address]Fi# [phone] Sodium [Moles/Vol] 140 mmol/L Normal 136-145 [facility] Comment on above: Order Comment: Campu s: M Performed By: #### L 500.37114, L500.03440, L500.88818 ####[facility] ELZGEAMNNH8219 [place], [place] [address]Wr# [phone] Urea nitrogen [Mass/Vol] 14 mg/dL Normal 7-26 [facility] Comment on above: Order Comment: Campu s: M Performed By: #### L 500.62816, L500.16013, L500.30757 ####[facility] TSQQBHQTRN4008 [place], [place] [address]Sj# [phone] Urea nitrogen/Creatinine [Mass ratio] 21 mg/mg Normal 15-24 [facility] Comment on above: Order Comment: Campu s: M Performed By: #### L 500.82406, L500.99624, L500.89911 ####[facility] VAPYMAFSXS1179 [place], [place] [address]Zw# [phone] CBC W/DIFFon 12-27-2021 BASO ABS 0.00 K/CU MM Normal 0-0.2 [facility] Comment on above: Order Comment: Campu s: M Performed By: #### L 200.52545 ####[facility] RWWIWJFKXD[address] [place] [address]Ue# [phone] Basophils/100 WBC (Bld) 0.3 % Normal 0-2 [facility] Comment on above: Order Comment: Campu s: M Performed By: #### L 200.62018 ####[facility] NUAGSOEEDH[address] [place] [address]Er# [phone] EOS ABS 0.00 K/CU MM Normal 0-0.5 [facility] Comment on above: Order Comment: Campu s: M Performed By: #### L 200.95465 ####[facility] GQIGCQWEQU605[address] [place] [address]Cz# [phone] Eosinophils/100 WBC (Bld) 0.0 % Normal 0-5 [facility] Comment on above: Order Comment: Campu s: M Performed By: #### L 200.52658 ####[facility] LVQYABTAVB1098 [place], [place] [address]Sz# [phone] Erythrocyte distribution width (RBC) [Ratio] 13.8 % Normal 11-14.5 [facility] Comment on above: Order Comment: Campu s: M Performed By: #### L 200.45812 ####[facility] GCQPLUXSOQ[address] [place], [place] [address]Ph# [phone] Hematocrit (Bld) [Volume fraction] 36.4 % Normal 35.0-47.0 [facility] Comment on above: Order Comment: Campu s: M Performed By: #### L 200.53173 ####[place] [address]Ph# [phone] Hemoglobin (Bld) [Mass/Vol] 12.1 g/dL Normal 11.5-15.5 [facility] Comment on above: Order Comment: Campu s: M Performed By: #### L 200.82768 ####[facility] SQZEBQNWPK149[address] [place], [place] [address]Ph# [phone] IMMATR GRAN ABS 0.30 K/CU MM Normal Less than 2 [facility] Comment on above: Order Comment: Campu s: M Performed By: #### L 200.69159 ####[facility] LBTRGXESZI604[address] [place], [place] [address]Ph# [phone] IMMATURE GRAN % 1.8 % Normal Less than 2 [facility] Comment on above: Order Comment: Campu s: M Performed By: #### L 200.76583 ####[facility] YVOBKYDKUT7869[address] [place], [place] [address]Ph# [phone] LYMPH ABS 1.30 K/CU MM Normal 0.9-4.4 [facility] Comment on above: Order Comment: Campu s: M Performed By: #### L 200.78034 ####[facility] SPECZDWDCY9662 [place], [place] [address]Jq# [phone] Lymphocytes/100 WBC (Bld) 9.4 % Low 20-40 [facility] Comment on above: Order Comment: Campu s: M Performed By: #### L 200.54698 ####[address] [address]Xh# [phone] MCHC (RBC) [Mass/Vol] 33.2 g/dL Normal 32.0-36.0 [facility] Comment on above: Order Comment: Campu s: M Performed By: #### L 200.68536 ####[address] [address]Se# [phone] MCV (RBC) [Entitic vol] 85.4 fL Normal 80.0-99.0 [facility] Comment on above: Order Comment: Campu s: M Performed By: #### L 200.68549 ####[address] [address]Eo# [phone] MONO ABS 0.60 K/CU MM Normal 0.1-1.1 [facility] Comment on above: Order Comment: Campu s: M Performed By: #### L 200.23618 ####[address] [address]Cz# [phone] Monocytes/100 WBC (Bld) 4.1 % Normal 2-10 [facility] Comment on above: Order Comment: Campu s: M Performed By: #### L 200.19882 ####[facility] NYTZBRSXZI[address] [place] [address]Ej# [phone] NEUTROPHIL ABS 11.70 K/CU MM High 2.0-8.3 [facility] Comment on above: Order Comment: Campu s: M Performed By: #### L 200.61245 ####[facility] PCHMHGDLBE[address] [place], [place] [address]Ph# [phone] Neutrophils/100 WBC (Bld) 84.4 % High 45-75 [facility] Comment on above: Order Comment: Campu s: M Performed By: #### L 200.37966 ####[facility] NOQYDMGUUG4124 [place], [place] [address]Kl# [phone] Nucleated RBC/100 WBC (Bld) [Ratio] 0.0 % Normal Less than 1 [facility] Comment on above: Order Comment: Campu s: M Performed By: #### L 200.59336 ####[facility] QVWGRCMFVL1993 [place], [place] [address]Wb# [phone] Platelet mean volume (Bld) [Entitic vol] 12.1 fL Normal 9.4-12.4 [facility] Comment on above: Order Comment: Campu s: M Performed By: #### L 200.48811 ####[facility] PQDGHYFCDM1863 [place], [place] [address]My# [phone] PLT 184 K/CU MM Normal 150-450 [facility] Comment on above: Order Comment: Campu s: M Performed By: #### L 200.44242 ####[facility] AAELQNLQLP8692 [place], [place] [address]Wc# [phone] RBC 4.26 M/CU MM Normal 3.90-5.30 [facility] Comment on above: Order Comment: Campu s: M Performed By: #### L 200.21465 ####[facility] CFDCLFIJJJ5091 [place], [place] [address]Kp# [phone] WBC 13.9 K/CUMM High 4.5-11.0 [facility] Comment on above: Order Comment: Campu s: M Performed By: #### L 200.80783 ####[facility] JCOKNYRZMN1454 [place], [place] [address]It# [phone] Stacie 12-27-2021 EMERGENCY PHYSICIAN REPORT This is a preliminary report only, as the practitioner review and authentication has not occurred. Normal [facility] ER Normal [facility] G[facility]on 12-27-2021 IF AMER Greater than 60 Normal [facility] Comment on above: Order Comment: Campu s: M Performed By: #### L 500.40489, L500.53316, L500.86866 ####[facility] KXSYXJFFIG7323 [place], [place] [address]Dz# [phone] IF non-AFR AMER Greater than 60 Normal [facility] Comment on above: Order Comment: Campu s: M Performed By: #### L 500.44524, L500.61176, L500.07739 ####[facility] NDXYGOSXHD9835 [place], [place] [address]Qc# [phone] HCGon 12-27-2021 HCG SER RESULT Negative Normal NEGATIVE [facility] Comment on above: Order Comment: Campu s: M Performed By: #### L 500.21730, L500.43214, L500.56334 ####[facility] OXQRXTDWHG[address] [place] [address]Gx# [phone] LACTATE BLOODon 12-27-2021 LACTATE BLOOD 2.43 MMOL/L High 0.40-2.00 [facility] Comment on above: Order Comment: Campu s: M Performed By: #### L 550.63246 ####[facility] [id number] [place] [id number]# [phone] LIPASEon 12-27-2021 Lipase [Catalytic activity/Vol] 25 U/L Normal 12-60 [facility] Comment on above: Order Comment: Campu s: M Result Comment: NOTE NEW NORMAL RANGE DUE TO REAGENT CHANGE Performed By: #### L [id number], [id number] ####[facility] [id number] [place] [address] [id number]# [phone] LIVERon 12-27-2021 Albumin [Mass/Vol] 4.2 g/dL Normal 3.2-5.0 [facility] Comment on above: Order Comment: Campu s: M Performed By: #### L 500.05346, L500.15420 ####[facility] VKJCFBDZWY8901 [place], [place] [address]Hk# [phone] Albumin/Globulin [Mass ratio] 1.7 {ratio} Normal 0.8-2.0 [facility] Comment on above: Order Comment: Campu s: M Performed By: #### L 500.32053, L500.30311 ####[facility] RFTEKQVPZN4841 [place], [place] [address]Gs# [phone] ALK PHOS 87 U/L Normal 45-117 [facility] Comment on above: Order Comment: Campu s: M Performed By: #### L 500.12226, L500.04755 ####[facility] JOSKGDKAJL5988 [place], [place] [address]Im# [phone] ALT [Catalytic activity/Vol] 13 U/L Normal 13-61 [facility] Comment on above: Order Comment: Campu s: M Result Comment: RESU LTS MAY BE FALSELY DEPRESSED AFTER THE ADMINISTRATION OFSULFASALAZINE AND/OR SULFAPYRIDINE. Performed By: #### L 500.20236, L500.51553 ####[facility] ULGXWMKMWN8111 [place], [place] [address]Ti# [phone] AST [Catalytic activity/Vol] 23 U/L Normal 8-34 [facility] Comment on above: Order Comment: Campu s: M Result Comment: RESU LTS MAY BE FALSELY DEPRESSED AFTER THE ADMINISTRATION OFSULFASALAZINE AND/OR SULFAPYRIDINE. Performed By: #### L 500.95662, L500.62237 ####[facility] IACBFCSLAF1398 [place], [place] [address]Mt# [phone] BILI DIRECT 0.3 MG/DL Normal 0.00-0.36 [facility] Comment on above: Order Comment: Campu s: M Result Comment: NOTE NEW NORMAL RANGE DUE TO REAGENT CHANGE Performed By: #### L 500.04782, L500.71733 ####[facility] QRMFLCUXMM5855 [place], [place] [address]Bq# [phone] BILI TOTAL 0.90 MG/DL Normal 0.2-1.0 [facility] Comment on above: Order Comment: Campu s: M Performed By: #### L 500.36613, L500.53026 ####[facility] TXUNRKWVGW9787 [place], [place] [address]Ki# [phone] Globulin (S) [Mass/Vol] 2.5 g/dL Normal 2.2-4.2 [facility] Comment on above: Order Comment: Campu s: M Performed By: #### L 500.47704, L500.50181 ####[place] [address] [place], [place] [address]Lh# [phone] Protein [Mass/Vol] 6.7 g/dL Normal 6.0-8.5 [facility] Comment on above: Order Comment: Campu s: M Performed By: #### L 500.84096, L500.24528 ####[facility] BGXWKIIITT8661 [place], [place] [address]Kx# [phone] [id number] 12-27-2021 SARS-CoV-2 (COVID-19) RNA DANIEL+probe Ql (Unsp spec) Negative Invalid Interpretation Code Negative [facility] Comment on above: Order Comment: [...] performed by PCR. Performed By: #### L 770.33356 ####[facility] ZJNAMEFWTR0255 [place], [place] [address]Os# [phone] UA COMPLETEon 12-27-2021 Color (U) Yellow Normal [facility] Comment on above: Order Comment: Campu s: M Performed By: #### L 600.98714 ####[facility] FCOULVZLTO8941 [place], [place] [address]Qd# [phone] Glucose (U) [Mass/Vol] Negative Normal NORMAL [facility] Comment on above: Order Comment: Campu s: M Performed By: #### L 600.19318 ####[facility] VHYUIRQBIP[address] [place] [address]Sp# [phone] UA APPEARANCE Clear Normal CLEAR [facility] Comment on above: Order Comment: Campu s: M Performed By: #### L 600.62084 ####[facility] [id number] [place] [address]Aj# [phone] UA BILIRUBIN Negative Normal NEGATIVE [facility] Comment on above: Order Comment: Campu s: M Performed By: #### L 600.82472 ####[facility] URWQFUZVLG459[address] [place] [address]Eq# [phone] UA BLOOD Negative Normal NEGATIVE [facility] Comment on above: Order Comment: Campu s: M Performed By: #### L 600.33811 ####[facility] FFILERLUSB489[address] [place] [address]Rw# [phone] UA KETONE 80 Normal NEGATIVE [facility] Comment on above: Order Comment: Campu s: M Performed By: #### L 600.43397 ####[facility] VBTHJCYAOC3924[address] [place] [address]Mc# [phone] UA LK ESTERASE Negative Normal NEGATIVE [facility] Comment on above: Order Comment: Campu s: M Performed By: #### L 600.53970 ####[facility] PAVGYFVULN[address] [place] [address]Cx# [phone] UA NITRITE Negative Normal NEGATIVE [facility] Comment on above: Order Comment: Campu s: M Performed By: #### L 600.82403 ####[facility] TIYPBFTRNW1119[address] [place] [address]Gc# [phone] UA PH 6.0 Normal 5-6 [facility] Comment on above: Order Comment: Campu s: M Performed By: #### L 600.40719 ####[facility] UGKLJWKOUZ9377 [place], [place] [address]Ma# [phone] UA PROTEIN Negative Normal NEGATIVE [facility] Comment on above: Order Comment: Campu s: M Performed By: #### L 600.88428 ####[facility] CPYAJGVSRN0806 [place], [place] [address]Ib# [phone] UA SPEC GRAV 1.018 Normal 1.005-1.030 [facility] Comment on above: Order Comment: Campu s: M Performed By: #### L 600.83503 ####[facility] TIWXOVZKWB8129 [place], [place] [address]Rk# [phone] UA UROBILINOGEN 2.0 Normal NORMAL [facility] Comment on above: Order Comment: Campu s: M Performed By: #### L 600.39897 ####[facility] KONRFJBKTI0690 [place], [place] [address]Wj# [phone] VBG PHon 12-27-2021 VBG PH 7.57 MMHG High 7.31-7.41 [facility] Comment on above: Order Comment: Campu s: M Performed By: #### L 100.36330 ####[facility] GTXEPJBMYI7730 [place], [place] [address]Pg# [phone] Stacie 12-26-2021 EMERGENCY PHYSICIAN REPORT This is a preliminary report only, as the practitioner review and authentication has not occurred. Normal [facility] ER Normal [facility] GLUCOSE METERon 12-26-2021 Glucose [Mass/Vol] 246 mg/dL High 70-115 [facility] Glucose [Mass/Vol] 311 mg/dL High 70-115 [facility] PR[facility] 12-26-2021 PROG.NOTE Normal [facility] Progress Note-Physician Normal [facility] ABDOMEN OR KUBon 12-25-2021 ABDOMEN OR KUB Normal [facility] BETA-HYDRO BUTon 12-25-2021 BETA-HYDRO BUT 2.49 MMOL/L High 0.02-0.27 [facility] Comment on above: Order Comment: Campu s: M Result Comment: Bloo d ketone levels will vary depending on several factors(for example, food intake, alcohol intake and conditionssuch as ketoacidosis). Patients should be fasting 12 hoursprior to collection.PATIENT SAMPLES WITH HIGH LEVELS OF M-PROTEIN (I.E.GAMMOPATHY) MAY AFFECT THE ACCURACY OF THIS ASSAY. Performed By: #### L 500.15713 ####[facility] KNHQZUFHYG9863 [place], [place] [address]Tk# [phone] BMPon 12-25-2021 Anion gap [Moles/Vol] 13 mmol/L Normal 5-16 [facility] Comment on above: Order Comment: Campu s: M Performed By: #### L 500.37527, L500.14140, L500.18959, L500.28712, L500.36469 ####[facility] MDNZVPSGGZ7280 [place], [place] [address]Es# [phone] Calcium [Mass/Vol] 10.0 mg/dL Normal 8.5-10.5 [facility] Comment on above: Order Comment: Campu s: M Result Comment: NOTE NEW NORMAL RANGE DUE TO REAGENT CHANGE Performed By: #### L 500.15884, L500.33433, L500.21081, L500.24326, L500.94131 ####[facility] HCPSGCTNNW5902 [place], [place] [address]Qb# [phone] Chloride [Moles/Vol] 107 mmol/L Normal 98-107 [facility] Comment on above: Order Comment: Campu s: M Performed By: #### L 500.99299, L500.63553, L500.57528, L500.20034, L500.20226 ####[facility] ZXVZGUVJJW2029 [place], [place] [address]Ae# [phone] CO2 [Moles/Vol] 17.0 mmol/L Low 21-32 [facility] Comment on above: Order Comment: Campu s: M Performed By: #### L 500.56397, L500.42354, L500.81713, L500.87422, L500.04683 ####[facility] NMOLYZKSYQ5545 [place], [place] [address]Cz# [phone] Creatinine [Mass/Vol] 0.66 mg/dL Normal 0.510-0.950 [facility] Comment on above: Order Comment: Benjiu s: M Result Comment: Cleopatra ents receiving either N-Acetylcysteine (NAC) orMetamizole prior to venipuncture, may have falsely depressedresults. Performed By: #### L 500.65205, L500.79236, L500.42544, L500.38886, L500.72179 ####[facility] XBSTBQRTWW8224 [place], [place] [address]On# [phone] Glucose [Mass/Vol] 359 mg/dL High 70-100 [facility] Comment on above: Order Comment: Benjiu s: M Result Comment: 70-1 00- Normal Fasting; 100-125 Impaired Fasting; greaterthan 126 on more than one result- Diabetes. ADA guidelines.Results may be falsely elevated after the administration ofSulfapyridine.Results may be falsely depressed after the administration ofSulfasalazine. Performed By: #### L 500.35822, L500.75385, L500.88845, L500.69040, L500.18668 ####[facility] YLLNOVBFCN3375 [place], [place] [address]Lm# [phone] Potassium [Moles/Vol] 4.1 mmol/L Normal 3.5-5.1 [facility] Comment on above: Order Comment: Zach s: M Performed By: #### L 500.59487, L500.03234, L500.51545, L500.12864, L500.29807 ####[facility] CRTVOWEMIQ0967 [place], [place] [address]Qf# [phone] Sodium [Moles/Vol] 137 mmol/L Normal 136-145 [facility] Comment on above: Order Comment: Zach s: M Performed By: #### L 500.03385, L500.66225, L500.71133, L500.92224, L500.94939 ####[facility] NFUTWRGUSD4847 [place], [place] [address]Hu# [phone] Urea nitrogen [Mass/Vol] 17 mg/dL Normal 7- [facility] Comment on above: Order Comment: Campu s: M Performed By: #### L 500.87064, L500.16405, L500.71211, L500.30862, L500.87201 ####[facility] LGQBVPMRYL0483 [place], [place] [address]Hw# [phone] Urea nitrogen/Creatinine [Mass ratio] 26 mg/mg High 15-24 [facility] Comment on above: Order Comment: Campu s: M Performed By: #### L 500.25037, L500.90768, L500.68591, L500.35977, L500.13786 ####[facility] HBWSPGYUTR110[address] [place] [address]Jx# [phone] CBC W/DIFFon 12-25-2021 BASO ABS 0.00 K/CU MM Normal 0-0.2 [facility] Comment on above: Order Comment: Campu s: M Performed By: #### L 200.02531 ####[facility] ZIRMZVECGI75[address] [place] [address]Gf# [phone] Basophils/100 WBC (Bld) 0.2 % Normal 0-2 [facility] Comment on above: Order Comment: Campu s: M Performed By: #### L 200.26516 ####[facility] VBGAVCLWYK062[address] [place] [address]Xm# [phone] EOS ABS 0.00 K/CU MM Normal 0-0.5 [facility] Comment on above: Order Comment: Campu s: M Performed By: #### L 200.54726 ####[facility] KGYSZDTCEG517[address] [place] [address]En# [phone] Eosinophils/100 WBC (Bld) 0.0 % Normal 0-5 [facility] Comment on above: Order Comment: Campu s: M Performed By: #### L 200.42442 ####[facility] YBFOGKNINY7813 [place], [place] [address]So# [phone] Erythrocyte distribution width (RBC) [Ratio] 13.4 % Normal 11-14.5 [facility] Comment on above: Order Comment: Campu s: M Performed By: #### L 200.46670 ####[facility] AKMTEMUVST[address] [place], [place] [address]Ph# [phone] Hematocrit (Bld) [Volume fraction] 38.3 % Normal 35.0-47.0 [facility] Comment on above: Order Comment: Campu s: M Performed By: #### L 200.69696 ####[address] [address]Uz# [phone] Hemoglobin (Bld) [Mass/Vol] 13.0 g/dL Normal 11.5-15.5 [facility] Comment on above: Order Comment: Campu s: M Performed By: #### L 200.80704 ####[facility] XVDWLKEQVR856[address] [place], [place] [address]Ph# [phone] IMMATR GRAN ABS 0.20 K/CU MM Normal Less than 2 [facility] Comment on above: Order Comment: Campu s: M Performed By: #### L 200.24588 ####[facility] DUJWPOFRFX301[address] [place], [place] [address]Ph# [phone] IMMATURE GRAN % 1.0 % Normal Less than 2 [facility] Comment on above: Order Comment: Campu s: M Performed By: #### L 200.21157 ####[facility] WSZCOQOYVS9037[address] [place] [address]Ta# [phone] LYMPH ABS 0.90 K/CU MM Normal 0.9-4.4 [facility] Comment on above: Order Comment: Campu s: M Performed By: #### L 200.10763 ####[facility] RBLNBVNICZ4136 [place], [place] [address]Uo# [phone] Lymphocytes/100 WBC (Bld) 4.8 % Low 20-40 [facility] Comment on above: Order Comment: Campu s: M Performed By: #### L 200.45389 ####[facility] RUXMPTWOIQ060[address] [place] [address]Ho# [phone] MCHC (RBC) [Mass/Vol] 33.9 g/dL Normal 32.0-36.0 [facility] Comment on above: Order Comment: Campu s: M Performed By: #### L 200.40337 ####[place] [address]Ph# [phone] MCV (RBC) [Entitic vol] 84.2 fL Normal 80.0-99.0 [facility] Comment on above: Order Comment: Campu s: M Performed By: #### L 200.47999 ####[facility] KRBTSFSJKX256[address] [place] [address]Te# [phone] MONO ABS 0.50 K/CU MM Normal 0.1-1.1 [facility] Comment on above: Order Comment: Campu s: M Performed By: #### L 200.67585 ####[address] [address]Qr# [phone] Monocytes/100 WBC (Bld) 2.4 % Normal 2-10 [facility] Comment on above: Order Comment: Campu s: M Performed By: #### L 200.37875 ####[facility] GTDJIIJJVR034[address] [place] [address]Qc# [phone] NEUTROPHIL ABS 17.60 K/CU MM High 2.0-8.3 [facility] Comment on above: Order Comment: Campu s: M Performed By: #### L 200.09072 ####[facility] POESWFYBVG[address] [place], [place] [address]Ph# [phone] Neutrophils/100 WBC (Bld) 91.6 % High 45-75 [facility] Comment on above: Order Comment: Campu s: M Performed By: #### L 200.29224 ####[facility] ZMJUOJHQXU0205 [place], [place] [address]Bx# [phone] Nucleated RBC/100 WBC (Bld) [Ratio] 0.0 % Normal Less than 1 [facility] Comment on above: Order Comment: Campu s: M Performed By: #### L 200.66290 ####[facility] CZCRNVRFIO418[address] [place] [address]Hl# [phone] Platelet mean volume (Bld) [Entitic vol] 13.2 fL High 9.4-12.4 [facility] Comment on above: Order Comment: Campu s: M Performed By: #### L 200.91872 ####[facility] ITSDUAGWRU5698 [place], [place] [address]Rx# [phone] PLT 187 K/CU MM Normal 150-450 [facility] Comment on above: Order Comment: Campu s: M Result Comment: Accu racy questionable due to platelet clumping, actualplatelet count may be higher than the reported value. Performed By: #### L 200.92637 ####[facility] SGFUBOYLTZ[address] [place] [address]Um# [phone] PLT EST UNABLE TO QUANTITATE Normal [facility] Comment on above: Order Comment: Campu s: M Performed By: #### L 200.38305 ####[facility] MXIDOTJKYP4731 [place], [place] [address]Yb# [phone] POIK 1+ Normal [facility] Comment on above: Order Comment: Campu s: M Performed By: #### L 200.61826 ####[facility] UOJTYCSMON[address] [place] [address]Je# [phone] POLY 1+ Normal [facility] Comment on above: Order Comment: Campu s: M Performed By: #### L 200.30408 ####[facility] RHPNBZJDXG9314[address] [place] [address]Jv# [phone] RBC 4.55 M/CU MM Normal 3.90-5.30 [facility] Comment on above: Order Comment: Benjiu s: M Performed By: #### L 200.11445 ####[facility] YDCESDBJQV4185 [place], [place] [address]Iw# [phone] WBC 19.2 K/CUMM High 4.5-11.0 [facility] Comment on above: Order Comment: Benjiu s: M Performed By: #### L 200.44030 ####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 She is out of infusion sets for [...] every 6 hours as needed. - lancets (XanEdu LANCETS) 30 gauge 10 x daily DX [...] Status:Closed by VELIA KAUR on 12/25/21 Normal [facility] DSon 12-25-[address] [facility] GFR ESTon 12-25-2021 IF AMER Greater than 60 Normal [facility] Comment on above: Order Comment: Campu s: M Performed By: #### L 500.20376, L500.57704, L500.69226, L500.72458, L500.30161 ####[facility] JCYKLIZMMP1722 [place], [place] [address]Rb# [phone] IF non-AFR AMER Greater than 60 Normal [facility] Comment on above: Order Comment: Campu s: M Performed By: #### L 500.25935, L500.84898, L500.08852, L500.79256, L500.75710 ####[facility] HKKPFOGJWZ7016 [place], [place] [address]Ro# [phone] HCGon 12-25-2021 HCG SER RESULT Negative Normal NEGATIVE [facility] Comment on above: Order Comment: Campu s: M Performed By: #### L 500.03448, L500.19043, L500.33794, L500.33592, L500.30882 ####[facility] RXMSPKWMGP7082 [place], [place] [address]Ao# [phone] HP.IMS.ADMon 12-25-2021 Admission-H&P Normal [facility] HP.IMS.ADM Normal [facility] LACTATE BLOODon 12-25-2021 LACTATE BLOOD 3.03 MMOL/L High 0.40-2.00 [facility] Comment on above: Order Comment: Campu s: M Performed By: #### L 550.93005, L100.79251 ####[facility] XSCFVIEIBM3644 [place], [place] [address]Mn# [phone] LIPASEon 12-25-2021 Lipase [Catalytic activity/Vol] 23 U/L Normal 12-60 [facility] Comment on above: Order Comment: Campu s: M Result Comment: NOTE NEW NORMAL RANGE DUE TO REAGENT CHANGE Performed By: #### L 500.31064, L500.81533, L500.62488, L500.97557, L500.52009 ####[facility] XXWSMJXWLE8978 [place], [place] [address]Pn# [phone] LIVERon 12-25-2021 Albumin [Mass/Vol] 4.2 g/dL Normal 3.2-5.0 [facility] Comment on above: Order Comment: Campu s: M Performed By: #### L 500.42016, L500.38517, L500.93840, L500.04634, L500.82798 ####[facility] IJCNVSKJJT9440 [place], [place] [address]Uq# [phone] Albumin/Globulin [Mass ratio] 1.6 {ratio} Normal 0.8-2.0 [facility] Comment on above: Order Comment: Campu s: M Performed By: #### L 500.43958, L500.86069, L500.25579, L500.37901, L500.95456 ####[facility] YBRVIJEUMW6693 [place], [place] [address]Ek# [phone] ALK PHOS 92 U/L Normal 45-117 [facility] Comment on above: Order Comment: Campu s: M Performed By: #### L 500.41450, L500.28915, L500.77698, L500.43545, L500.74000 ####[facility] IPWKWESYEK3919 [place], [place] [address]Nm# [phone] ALT [Catalytic activity/Vol] 13 U/L Normal 13-61 [facility] Comment on above: Order Comment: Campu s: M Result Comment: RESU LTS MAY BE FALSELY DEPRESSED AFTER THE ADMINISTRATION OFSULFASALAZINE AND/OR SULFAPYRIDINE. Performed By: #### L 500.61367, L500.31675, L500.74398, L500.45468, L500.68595 ####[facility] SIEZPCJDZA9735 [place], [place] [address]Ne# [phone] AST [Catalytic activity/Vol] 18 U/L Normal 8-34 [facility] Comment on above: Order Comment: Campu s: M Result Comment: RESU LTS MAY BE FALSELY DEPRESSED AFTER THE ADMINISTRATION OFSULFASALAZINE AND/OR SULFAPYRIDINE. Performed By: #### L 500.79959, L500.15211, L500.38372, L500.16601, L500.24856 ####[facility] DZEHDDPCMV[address] [place] [address]Tz# [phone] BILI DIRECT 0.3 MG/DL Normal 0.00-0.36 [facility] Comment on above: Order Comment: Campu s: M Result Comment: NOTE NEW NORMAL RANGE DUE TO REAGENT CHANGE Performed By: #### L 500.50671, L500.88774, L500.31447, L500.55059, L500.75825 ####[facility] EHRMKFEVBN[address] [place] [address]Gy# [phone] BILI TOTAL 0.90 MG/DL Normal 0.2-1.0 [facility] Comment on above: Order Comment: Campu s: M Performed By: #### L 500.38801, L500.48024, L500.50059, L500.63893, L500.63996 ####[facility] XWUQXWIFJK5002 [place], [place] [address]Bn# [phone] Globulin (S) [Mass/Vol] 2.6 g/dL Normal 2.2-4.2 [facility] Comment on above: Order Comment: Campu s: M Performed By: #### L 500.98642, L500.33334, L500.20827, L500.03180, L500.64857 ####[facility] PDTBDRLCXM9774 [place], [place] [address]Wr# [phone] Protein [Mass/Vol] 6.8 g/dL Normal 6.0-8.5 [facility] Comment on above: Order Comment: Campu s: M Performed By: #### L 500.29065, L500.59916, L500.09757, L500.72248, L500.17077 ####[facility] WXTLEKEWOY7869 [place], [place] [address]Mo# [phone] [id number] 12-25-2021 SARS-CoV-2 (COVID-19) RNA DANIEL+probe Ql (Unsp spec) Negative Invalid Interpretation Code Negative [facility] Comment on above: Order Comment: [...] performed by PCR. Performed By: #### L [id number] ####[facility] [id number] [place], [place] [address]Dc# [phone] UA COMPLETEon 12-25-2021 Color (U) Straw Normal [facility] Comment on above: Order Comment: Campu s: M Performed By: #### L 600.28289 ####[facility] [id number] [place], [place] [address]Qm# [phone] Glucose (U) [Mass/Vol] 500 mg/dL Normal NORMAL [facility] Comment on above: Order Comment: Campu s: M Performed By: #### L 600.15386 ####[facility] [id number] [place] [id number]# [phone] UA APPEARANCE Clear Normal CLEAR [facility] Comment on above: Order Comment: Campu s: M Performed By: #### L 600.85119 ####[facility] UGLAXZQMEB9615 [place], [place] [address]Sx# [phone] UA BILIRUBIN Negative Normal NEGATIVE [facility] Comment on above: Order Comment: Campu s: M Performed By: #### L 600.76084 ####[facility] WMRXGWMDKR4905 [place], [place] [address]Dj# [phone] UA BLOOD Negative Normal NEGATIVE [facility] Comment on above: Order Comment: Campu s: M Performed By: #### L 600.42778 ####[facility] GZBYGYUAFR6309 [place], [place] [address]Rx# [phone] UA KETONE [address] [facility] Comment on above: Order Comment: Campu s: M Performed By: #### L 600.16318 ####[facility] ENMOVYBIIW[address] [place] [address]Zz# [phone] UA LK ESTERASE Negative Normal NEGATIVE [facility] Comment on above: Order Comment: Campu s: M Performed By: #### L 600.15249 ####[facility] YWRUMJVJRI[address] [place] [address]Sy# [phone] UA NITRITE Negative Normal NEGATIVE [facility] Comment on above: Order Comment: Campu s: M Performed By: #### L 600.94509 ####[facility] IZLMLQUWKS[address] [place] [address]Xv# [phone] UA PH 7.0 Normal 5-6 [facility] Comment on above: Order Comment: Campu s: M Performed By: #### L 600.49596 ####[facility] JJMYLEANNL[address] [place] [address]Nf# [phone] UA PROTEIN Negative Normal NEGATIVE [facility] Comment on above: Order Comment: Campu s: M Performed By: #### L 600.05735 ####[facility] LWYVSXDGGQ044[address] [place] [address]Sw# [phone] UA SPEC GRAV 1.028 Normal 1.005-1.030 [facility] Comment on above: Order Comment: Campu s: M Performed By: #### L 600.89193 ####[facility] VNCBJDTTBX675[address] [place] [address]Hf# [phone] UA UROBILINOGEN Negative Normal NORMAL [facility] Comment on above: Order Comment: Campu s: M Performed By: #### L 600.61284 ####[facility] XBZGEYIXSI677409 [place] [address]Nd# [phone] VBGPEon 12-25-2021 BASE EXCESS -3.6 MMOL/L Low 0-2 [facility] Comment on above: Order Comment: Campu s: M Performed By: #### L 550.79319, L100.06461 ####[place] [address] [place], [place] [address]Ru# [phone] Body temperature 98.6 [degF] Normal [facility] Comment on above: Order Comment: Campu s: M Performed By: #### L 550.48860, L100.40359 ####[address] [address]Qk# [phone] EQUIPMENT UNKNOWN Normal [facility] Comment on above: Order Comment: Campu s: M Performed By: #### L 550.27074, L100.36690 ####[facility] ORWHLZKDUJ811309 [place] [address]Wz# [phone] HCO3 (Bld) [Moles/Vol] 17.0 mmol/L Low 22-26 M [facility] Comment on above: Order Comment: Campu s: M Performed By: #### L 550.18888, L100.95910 ####[facility] YDSTWKDUZK404909 [place] [address]Ce# [phone] Hemoglobin (Bld) [Mass/Vol] 14.2 g/dL Low 16.0-22.0 [facility] Comment on above: Order Comment: Campu s: M Performed By: #### L 550.67189, L100.82859 ####[facility] RYWZXQKCWT[address] [place] [address]Bc# [phone] IONIZED CA 1.13 MMOL/L Normal 1.13-1.32 [facility] Comment on above: Order Comment: Campu s: M Performed By: #### L 550.28137, L100.34562 ####[facility] [place], [place] [address]Ar# [phone] Potassium [Moles/Vol] 4.1 mmol/L Normal 3.5-5.0 [facility] Comment on above: Order Comment: Campu s: M Performed By: #### L 550.79639, L100.24486 ####[address] [address]Rk# [phone] SAMPLE SITE VENOUS Normal [facility] Comment on above: Order Comment: Campu s: M Performed By: #### L 550.03453, L100.23269 ####[address] [address]Zo# [phone] SAMPLE TYPE VENOUS Normal [facility] Comment on above: Order Comment: Campu s: M Performed By: #### L 550.34980, L100.05607 ####[address] [address]We# [phone] Sodium [Moles/Vol] 136 mmol/L Normal 136-148 [facility] Comment on above: Order Comment: Campu s: M Performed By: #### L 550.46547, L100.02952 ####[address] [address]Jl# [phone] VBG CARBOXYHGB 1.4 % Normal 0-10 [facility] Comment on above: Order Comment: Campu s: M Performed By: #### L 550.18176, L100.16826 ####[facility] IYFFCSIPAR[address] [place] [address]Ih# [phone] VBG METHGB 0.3 % Low 0.4-1.5 [facility] Comment on above: Order Comment: Campu s: M Performed By: #### L 550.37628, L100.89841 ####[facility] NSYRMSVTVW[address]24[address] [place] [address]Bs# [phone] VBG O2 CAPACITY 19.4 VOL% Normal [facility] Comment on above: Order Comment: Campu s: M Performed By: #### L 550.85243, L100.19967 ####[facility] QEDEEOHZHV1030 [place], [place] [address]Hs# [phone] VBG O2 HG SATUR 65.5 % Normal 40-70 [facility] Comment on above: Order Comment: Campu s: M Performed By: #### L 550.15472, L100.01633 ####[facility] VHUWFDRBST4235 [place], [place] [address]Wg# [phone] VBG PCO2 21.5 MMHG Critically low 40-50 [facility] Comment on above: Order Comment: Campu s: M Result Comment: CRIT ICAL VALUE(S) VERIFIED AND HAND DELIVERED TO AND READBACK BY DR. HOFFMAN AT 1835 12/25/21 BY JOSE MARCIAL. Performed By: #### L 550.46216, L100.11628 ####[facility] BCALXSWWFH5127 [place], [place] [address]Sn# [phone] VBG PH 7.52 MMHG High 7.31-7.41 [facility] Comment on above: Order Comment: Campu s: M Performed By: #### L 550.51086, L100.90303 ####[facility] BFKQWLGLVN3517 [place], [place] [address]Fb# [phone] VBG PO2 LESS THAN 32.4 Low 35-45 [facility] Comment on above: Order Comment: Campu s: M Result Comment: VALU E IS OUTSIDE OF THE VERIFIED RANGES OF THIS ANALYZER.LIN MARCIAL Performed By: #### L 550.54852, L100.77366 ####[facility] AITZWBDKFI869[address] [place] [address]Aa# [phone] DISCH.SUMon 10-25-2021 DISCH.SUM Normal [facility] GLUCOSE METERon 10-25-2021 Glucose [Mass/Vol] 113 mg/dL Normal 70-115 [facility] Glucose [Mass/Vol] 108 mg/dL Normal 70-115 [facility] BMPon 10-24-2021 Anion gap [Moles/Vol] 12 mmol/L Normal 5-16 [facility] Comment on above: Order Comment: Campu s: M Performed By: #### L 500.23449, L500.46801 ####[facility] MWCEKNEXIC5797 [place], [place] [address]Jp# [phone] Calcium [Mass/Vol] 8.4 mg/dL Low 8.5-10.5 [facility] Comment on above: Order Comment: Campu s: M Result Comment: NOTE NEW NORMAL RANGE DUE TO REAGENT CHANGE Performed By: #### L 500.00136, L500.41040 ####[facility] FDGESQXQNW7273 [place], [place] [address]Hl# [phone] Chloride [Moles/Vol] 103 mmol/L Normal 98-107 [facility] Comment on above: Order Comment: Campu s: M Performed By: #### L 500.95408, L500.00903 ####[facility] BJDWMYYMEN[address] [place] [address]Ha# [phone] CO2 [Moles/Vol] 24.0 mmol/L Normal 21-32 [facility] Comment on above: Order Comment: Campu s: M Performed By: #### L 500.83571, L500.24740 ####[facility] ZTQTKFOHXS7413 [place], [place] [address]Bb# [phone] Creatinine [Mass/Vol] 0.69 mg/dL Normal 0.510-0.950 [facility] Comment on above: Order Comment: Campu s: M Result Comment: Cleopatra ents receiving either N-Acetylcysteine (NAC) orMetamizole prior to venipuncture, may have falsely depressedresults. Performed By: #### L 500.63658, L500.43456 ####[facility] PWTCXPOKUH3150 [place], [place] [address]Ng# [phone] Glucose [Mass/Vol] 113 mg/dL High 70-100 [facility] Comment on above: Order Comment: Campu s: M Result Comment: 70-1 00- Normal Fasting; 100-125 Impaired Fasting; greaterthan 126 on more than one result- Diabetes. ADA guidelines.Results may be falsely elevated after the administration ofSulfapyridine.Results may be falsely depressed after the administration ofSulfasalazine. Performed By: #### L 500.51242, L500.21627 ####[facility] TZNJWNRPHH8409 [place], [place] [address]Qx# [phone] Potassium [Moles/Vol] 3.0 mmol/L Low 3.5-5.1 [facility] Comment on above: Order Comment: Campu s: M Result Comment: NOT A CRITICAL Performed By: #### L 500.71018, L500.09074 ####[address] [address]Wv# [phone] Sodium [Moles/Vol] 139 mmol/L Normal 136-145 [facility] Comment on above: Order Comment: Campu s: M Performed By: #### L 500.11074, L500.76417 ####[facility] ZZIQEECWBU43[address] [place] [address]Dz# [phone] Urea nitrogen [Mass/Vol] 10 mg/dL Normal 7-26 [facility] Comment on above: Order Comment: Campu s: M Performed By: #### L 500.95803, L500.11602 ####[facility] BZZDKQIGJP67[address] [place] [address] 713[address]Ec# [phone] Urea nitrogen/Creatinine [Mass ratio] 15 mg/mg Normal 15-24 [facility] Comment on above: Order Comment: Campu s: M Performed By: #### L 500.57591, L500.86961 ####[facility] TIRFPCACVE030[address] [place] [address]Cg# [phone] CBC W/DIFFon 10-24-2021 BASO ABS 0.00 K/CU MM Normal 0-0.2 [facility] Comment on above: Order Comment: Campu s: M Performed By: #### L 200.44239 ####[facility] PCJAARBBGO7369 [place], [place] [address]Wj# [phone] Basophils/100 WBC (Bld) 0.2 % Normal 0-2 [facility] Comment on above: Order Comment: Campu s: M Performed By: #### L 200.51536 ####[facility] UCNMUTLMQD784[address] [place] [address]Og# [phone] EOS ABS 0.00 K/CU MM Normal 0-0.5 [facility] Comment on above: Order Comment: Campu s: M Performed By: #### L 200.15844 ####[place] [address]Ph# [phone] Eosinophils/100 WBC (Bld) 0.0 % Normal 0-5 [facility] Comment on above: Order Comment: Campu s: M Performed By: #### L 200.77072 ####[facility] FYDHPOEAWA933[address] [place] [address]Hg# [phone] Erythrocyte distribution width (RBC) [Ratio] 13.3 % Normal 11-14.5 [facility] Comment on above: Order Comment: Campu s: M Performed By: #### L 200.04332 ####[address] [address]Im# [phone] Hematocrit (Bld) [Volume fraction] 36.5 % Normal 35.0-47.0 [facility] Comment on above: Order Comment: Campu s: M Performed By: #### L 200.40487 ####[facility] XXMQDQYQQQ745[address] [place] [address] 07[address]Ap# [phone] Hemoglobin (Bld) [Mass/Vol] 12.3 g/dL Normal 11.5-15.5 [facility] Comment on above: Order Comment: Campu s: M Performed By: #### L 200.50306 ####[facility] XRCGLCFMYO[address] [place], [place] [address]255[address]Ph# [phone] IMMATR GRAN ABS 0.20 K/CU MM Normal Less than 2 [facility] Comment on above: Order Comment: Campu s: M Performed By: #### L 200.73755 ####[facility] GTQGOWIEZL4644 [place], [place] [address]Nj# [phone] IMMATURE GRAN % 1.3 % Normal Less than 2 [facility] Comment on above: Order Comment: Campu s: M Performed By: #### L 200.13516 ####[facility] VIWGOMPZIZ60[address] [place], [place] [address]Ph# [phone] LYMPH ABS 1.90 K/CU MM Normal 0.9-4.4 [facility] Comment on above: Order Comment: Campu s: M Performed By: #### L 200.21888 ####[place] [address]004208Ph# [phone] Lymphocytes/100 WBC (Bld) 14.9 % Low 20-40 [facility] Comment on above: Order Comment: Campu s: M Performed By: #### L 200.95188 ####[facility] BABNDXRRKA124[address] [place], [place] [address]Ph# [phone] MCHC (RBC) [Mass/Vol] 33.7 g/dL Normal 32.0-36.0 [facility] Comment on above: Order Comment: Campu s: M Performed By: #### L 200.44028 ####[facility] NHTPHVSGOD246[address] [place], [place] [address]Ph# [phone] MCV (RBC) [Entitic vol] 84.1 fL Normal 80.0-99.0 [facility] Comment on above: Order Comment: Campu s: M Performed By: #### L 200.89988 ####[facility] VIRECSAAVK676[address] [place] [address]Ny# [phone] MONO ABS 0.70 K/CU MM Normal 0.1-1.1 [facility] Comment on above: Order Comment: Campu s: M Performed By: #### L 200.35581 ####[facility] FZSOZIILJM6884 [place], [place] [address]Pq# [phone] Monocytes/100 WBC (Bld) 5.3 % Normal 2-10 [facility] Comment on above: Order Comment: Campu s: M Performed By: #### L 200.59402 ####[facility] SFIIQKKCBN4468 [place], [place] [address]Xj# [phone] NEUTROPHIL ABS 10.10 K/CU MM High 2.0-8.3 [facility] Comment on above: Order Comment: Campu s: M Performed By: #### L 200.46265 ####[facility] TJTRDWEVYC[address] [place], [place] [address]Ph# [phone] Neutrophils/100 WBC (Bld) 78.3 % High 45-75 [facility] Comment on above: Order Comment: Campu s: M Performed By: #### L 200.54007 ####[facility] KHOKBZHVIU[address] [place], [place] [address]Ph# [phone] Nucleated RBC/100 WBC (Bld) [Ratio] 0.0 % Normal Less than 1 [facility] Comment on above: Order Comment: Campu s: M Performed By: #### L 200.72135 ####[facility] LUCBZUUJLB144[address] [place] [address] 205[address]Sf# [phone] Platelet mean volume (Bld) [Entitic vol] 11.8 fL Normal 9.4-12.4 [facility] Comment on above: Order Comment: Campu s: M Performed By: #### L 200.38842 ####[facility] YKFDUFEDGP725[address] [place] [address] 65[address]Nr# [phone] PLT 176 K/CU MM Normal 150-450 [facility] Comment on above: Order Comment: Campu s: M Performed By: #### L 200.04434 ####[facility] LXGYYQJAJX9[address] [place], [place] [address]Ph# [phone] RBC 4.34 M/CU MM Normal 3.90-5.30 [facility] Comment on above: Order Comment: Campu s: M Performed By: #### L 200.89227 ####[facility] EVNRCEFJWS8771 [place], [place] [address]Ob# [phone] WBC 12.9 K/CUMM High 4.5-11.0 [facility] Comment on above: Order Comment: Campu s: M Performed By: #### L 200.22936 ####[facility] PWHBVLEJQF7[address] [place] [address]Xh# [phone] GFR ESTon 10-24-2021 IF AMER Greater than 60 Normal [facility] Comment on above: Order Comment: Campu s: M Performed By: #### L 500.26662, L500.22203 ####[facility] ONJQCYAOLT2209 [place], [place] [address]Bn# [phone] IF non-AFR AMER Greater than 60 Normal [facility] Comment on above: Order Comment: Campu s: M Performed By: #### L 500.13220, L500.50441 ####[facility] GCILJWIHEA4905 [place], [place] [address]Cb# [phone] GLUCOSE METERon 10-24-2021 Glucose [Mass/Vol] 203 mg/dL High 70-115 [facility] Glucose [Mass/Vol] 115 mg/dL Normal 70-115 [facility] Glucose [Mass/Vol] 103 mg/dL Normal 70-115 [facility] Glucose [Mass/Vol] 112 mg/dL Normal 70-115 [facility] PR[facility] IMSon 10-24-2021 PROG IMS Normal [facility] Progress Note-Hospitalist Normal [facility] PTon 10-24-2021 INR Coag (PPP) [Relative time] 1.05 {INR} Normal 0.9-1.1 [facility] Comment on above: Order Comment: Campu s: M Result Comment: Den mmended PT INR therapeutic range for technician terminal and repeater andprophylactic therapy is 2.0 - 3.0. For heart valve andshunt patients the range is 2.5 - 3.5. Performed By: #### L 300.39705 ####[facility] HIVLBSQQYW836[address] [place] [address]Vc# [phone] PTS 11.4 SECONDS Normal 9.5-12.0 [facility] Comment on above: Order Comment: Campu s: M Performed By: #### L 300.53026 ####[facility] DCNJOQXTGU780[address] [place] [address] 301[address]Kz# [phone] UA COMPLETEon 10-24-2021 Color (U) Straw Normal [facility] Comment on above: Order Comment: Campu s: M Performed By: #### L 600.89528 ####[address] [address]It# [phone] Glucose (U) [Mass/Vol] Negative Normal NORMAL [facility] Comment on above: Order Comment: Campu s: M Performed By: #### L 600.60709 ####[facility] OXFECXEYLB217[address] [place] [address] 250[address]Le# [phone] UA APPEARANCE Clear Normal CLEAR [facility] Comment on above: Order Comment: Campu s: M Performed By: #### L 600.96899 ####[facility] VTSCLXEUCW350[address] [place] [address] 05[address]Nl# [phone] UA BILIRUBIN Negative Normal NEGATIVE [facility] Comment on above: Order Comment: Campu s: M Performed By: #### L 600.47980 ####[facility] RTAUUKDDTI649[address] [place] [address] 314[address]Jd# [phone] UA BLOOD Negative Normal NEGATIVE [facility] Comment on above: Order Comment: Campu s: M Performed By: #### L 600.11706 ####[facility] HJSEQBTIKT109[address] [place] [address] 87[address]Xg# [phone] UA KETONE 20 Normal NEGATIVE [facility] Comment on above: Order Comment: Campu s: M Performed By: #### L 600.26842 ####[facility] ERVDLSOVFV4289 [place], [place] [address]Mb# [phone] UA LK ESTERASE Negative Normal NEGATIVE [facility] Comment on above: Order Comment: Campu s: M Performed By: #### L 600.95114 ####[facility] MOUABINSZG4779 [place], [place] [address]Tr# [phone] UA NITRITE Negative Normal NEGATIVE [facility] Comment on above: Order Comment: Campu s: M Performed By: #### L 600.34623 ####[facility] OITINBZROD2630 [place], [place] [address]El# [phone] UA PH 7.0 Normal - [facility] Comment on above: Order Comment: Campu s: M Performed By: #### L 600.52090 ####[facility] HGJSWYUABA404[address] [place] [address]Nz# [phone] UA PROTEIN Negative Normal NEGATIVE [facility] Comment on above: Order Comment: Campu s: M Performed By: #### L 600.83332 ####[facility] NHLEDLBMGM534[address] [place] [address]Jr# [phone] UA SPEC GRAV 1.009 Normal 1.005-1.030 [facility] Comment on above: Order Comment: Campu s: M Performed By: #### L 600.55272 ####[facility] JCVQDYCSMS[address] [place] [address] 476[address]Xm# [phone] UA UROBILINOGEN Negative Normal NORMAL [facility] Comment on above: Order Comment: Campu s: M Performed By: #### L 600.66685 ####[facility] UNKIHKNWLH[address] [place] [address]Rm# [phone] BMPon 10-23-2021 Anion gap [Moles/Vol] 12 mmol/L Normal -16 [facility] Comment on above: Order Comment: Campu s: M Performed By: #### L 500.56831, L500.93654, L500.07435 ####[facility] CNTKDRSFSY3499 [place], [place] [address]De# [phone] Calcium [Mass/Vol] 8.7 mg/dL Normal 8.5-10.5 [facility] Comment on above: Order Comment: Campu s: M Result Comment: NOTE NEW NORMAL RANGE DUE TO REAGENT CHANGE Performed By: #### L 500.80749, L500.01953, L500.55692 ####[facility] QNJGKSWWIM0653 [place], [place] [address]Hz# [phone] Chloride [Moles/Vol] 107 mmol/L Normal 98-107 [facility] Comment on above: Order Comment: Campu s: M Performed By: #### L 500.83544, L500.20163, L500.39404 ####[facility] UTKKWNSTHN8659 [place], [place] [address]Qh# [phone] CO2 [Moles/Vol] 22.0 mmol/L Normal 21-32 [facility] Comment on above: Order Comment: Campu s: M Performed By: #### L 500.93084, L500.70105, L500.29609 ####[facility] QOKMYCQJWI2895 [place], [place] [address]Sv# [phone] Creatinine [Mass/Vol] 0.62 mg/dL Normal 0.510-0.950 [facility] Comment on above: Order Comment: Campu s: M Result Comment: Cleopatra ents receiving either N-Acetylcysteine (NAC) orMetamizole prior to venipuncture, may have falsely depressedresults. Performed By: #### L 500.15546, L500.11406, L500.67970 ####[facility] WABKHXDCGX6834 [place], [place] [address]Mj# [phone] Glucose [Mass/Vol] 208 mg/dL High 70-100 [facility] Comment on above: Order Comment: Campu s: M Result Comment: 70-1 00- Normal Fasting; 100-125 Impaired Fasting; greaterthan 126 on more than one result- Diabetes. ADA guidelines.Results may be falsely elevated after the administration ofSulfapyridine.Results may be falsely depressed after the administration ofSulfasalazine. Performed By: #### L 500.93825, L500.62214, L500.80681 ####[facility] [id number] [place], [place] [address]Xo# [phone] Potassium [Moles/Vol] 3.2 mmol/L Low 3.5-5.1 [facility] Comment on above: Order Comment: Campu s: M Performed By: #### L 500.16146, L500.39526, L500.33029 ####[facility] [id number] [place], [place] [address]Ir# [phone] Sodium [Moles/Vol] 141 mmol/L Normal 136-145 [facility] Comment on above: Order Comment: Campu s: M Performed By: #### L 500.31841, L500.87040, L500.39964 ####[facility] [id number] [place], [place] [address]Pn# [phone] Urea nitrogen [Mass/Vol] 16 mg/dL Normal 7-26 [facility] Comment on above: Order Comment: Campu s: M Performed By: #### L 500.58562, L500.69497, L500.26191 ####[facility] PHOGJQQNYX9048 [place], [place] [address]Hw# [phone] Urea nitrogen/Creatinine [Mass ratio] 26 mg/mg High 15-24 [facility] Comment on above: Order Comment: Campu s: M Performed By: #### L 500.50026, L500.31226, L500.97653 ####[facility] T[address]AOSQVOX[address] [place] [address]Di# [phone] CBC W/DIFFon 10-23-2021 BASO ABS 0.00 K/CU MM Normal 0-0.2 [facility] Comment on above: Order Comment: Campu s: M Performed By: #### L 200.05770 ####[facility] ACEKGFMSMX630[address] [place] [address]Sp# [phone] Basophils/100 WBC (Bld) 0.2 % Normal 0-2 [facility] Comment on above: Order Comment: Campu s: M Performed By: #### L 200.75107 ####[facility] EQFEXHNBXX6642 [place], [place] [address]Ew# [phone] EOS ABS 0.00 K/CU MM Normal 0-0.5 [facility] Comment on above: Order Comment: Campu s: M Performed By: #### L 200.40573 ####[facility] DNUQENEUNT4827[address] [place] [address]Mx# [phone] Eosinophils/100 WBC (Bld) 0.0 % Normal 0-5 [facility] Comment on above: Order Comment: Campu s: M Performed By: #### L 200.03875 ####[address] [address]Am# [phone] Erythrocyte distribution width (RBC) [Ratio] 13.9 % Normal 11-14.5 [facility] Comment on above: Order Comment: Campu s: M Performed By: #### L 200.38306 ####[facility] PRSZCJDUSF416[address] [place] [address]Hi# [phone] Hematocrit (Bld) [Volume fraction] 32.9 % Low 35.0-47.0 [facility] Comment on above: Order Comment: Campu s: M Performed By: #### L 200.54770 ####[facility] QTYXWMVFDK[address] [place] [address] 90[address]Rx# [phone] Hemoglobin (Bld) [Mass/Vol] 11.0 g/dL Low 11.5-15.5 [facility] Comment on above: Order Comment: Campu s: M Performed By: #### L 200.57429 ####[facility] XAZEUVWWGP504[address] [place] [address]Ez# [phone] IMMATR GRAN ABS 0.10 K/CU MM Normal Less than 2 [facility] Comment on above: Order Comment: Campu s: M Performed By: #### L 200.54643 ####[facility] OIHXXOXWNQ4579 [place], [place] [address]Zf# [phone] IMMATURE GRAN % 0.8 % Normal Less than 2 [facility] Comment on above: Order Comment: Campu s: M Performed By: #### L 200.67904 ####[facility] DGPNWDOEWG985[address] [place] [address]32[address]Az# [phone] LYMPH ABS 1.80 K/CU MM Normal 0.9-4.4 [facility] Comment on above: Order Comment: Campu s: M Performed By: #### L 200.27372 ####[place] [address]Ph# [phone] Lymphocytes/100 WBC (Bld) 10.5 % Low 20-40 [facility] Comment on above: Order Comment: Campu s: M Performed By: #### L 200.18047 ####[facility] BBZFTQLVRA23[address] [place], [place] [address]Ph# [phone] MCHC (RBC) [Mass/Vol] 33.4 g/dL Normal 32.0-36.0 [facility] Comment on above: Order Comment: Campu s: M Performed By: #### L 200.83688 ####[facility] RYWSREBDNS833[address] [place] [address]Eo# [phone] MCV (RBC) [Entitic vol] 84.6 fL Normal 80.0-99.0 [facility] Comment on above: Order Comment: Campu s: M Performed By: #### L 200.59098 ####[facility] ISHGYYQLOX689[address] [place] [address]Jm# [phone] MONO ABS 0.70 K/CU MM Normal 0.1-1.1 [facility] Comment on above: Order Comment: Campu s: M Performed By: #### L 200.88255 ####[facility] XGRDTKOUIY317[address] [place], [place] [address]Ph# [phone] Monocytes/100 WBC (Bld) 3.9 % Normal 2-10 [facility] Comment on above: Order Comment: Campu s: M Performed By: #### L 200.60654 ####[facility] GYZLREDUWO0788 [place], [place] [address]Gi# [phone] NEUTROPHIL ABS 14.50 K/CU MM High 2.0-8.3 [facility] Comment on above: Order Comment: Campu s: M Performed By: #### L 200.43366 ####[facility] ZEJARKVMKO525[address] [place], [place] [address]Ph# [phone] Neutrophils/100 WBC (Bld) 84.6 % High 45-75 [facility] Comment on above: Order Comment: Campu s: M Performed By: #### L 200.04387 ####[facility] IYXQTCPTBR716[address] [place], [place] [address]Ph# [phone] Nucleated RBC/100 WBC (Bld) [Ratio] 0.0 % Normal Less than 1 [facility] Comment on above: Order Comment: Campu s: M Performed By: #### L 200.58879 ####[facility] RKZNKYPYMH940[address] [place], [place] [address]Ph# [phone] Platelet mean volume (Bld) [Entitic vol] 12.2 fL Normal 9.4-12.4 [facility] Comment on above: Order Comment: Campu s: M Performed By: #### L 200.23412 ####[facility] XTMCQNUETL9916[address] [place] [address]Kv# [phone] PLT 145 K/CU MM Low 150-450 [facility] Comment on above: Order Comment: Campu s: M Performed By: #### L 200.59361 ####[facility] QDTUNLDTYB6920 [place], [place] [address]Xy# [phone] RBC 3.89 M/CU MM Low 3.90-5.30 [facility] Comment on above: Order Comment: Campu s: M Performed By: #### L 200.34837 ####[facility] LFDUWHEWRX7065 [place], [place] [address]Lx# [phone] WBC 17.1 K/CUMM High 4.5-11.0 [facility] Comment on above: Order Comment: Campu s: M Performed By: #### L 200.35614 ####[facility] DXLJZIMYTZ2909 [place], [place] [address]Qd# [phone] GFR ESTon 10-23-2021 IF AMER Greater than 60 Normal [facility] Comment on above: Order Comment: Campu s: M Performed By: #### L 500.25665, L500.37731, L500.61975 ####[facility] OCRVJNTNFC9853 [place], [place] [address]Nv# [phone] IF non-AFR AMER Greater than 60 Normal [facility] Comment on above: Order Comment: Campu s: M Performed By: #### L 500.05562, L500.17644, L500.07179 ####[facility] VYEAQIJULD1827 [place], [place] [address]Hi# [phone] GLUCOSE METERon 10-23-2021 Glucose [Mass/Vol] 142 mg/dL High 70-115 [facility] Glucose [Mass/Vol] 127 mg/dL High 70-115 [facility] Glucose [Mass/Vol] 172 mg/dL High 70-115 [facility] MAGNESIUMon 10-23-2021 Magnesium [Mass/Vol] 1.7 mg/dL Normal 1.6-2.6 [facility] Comment on above: Order Comment: Campu s: M Performed By: #### L 500.23836, L500.24848, L500.88552 ####[facility] GJFLHQADMS2922 [place], [place] [address]Fy# [phone] PROG IMSon 10-23-2021 PROG IMS Normal [facility] Progress Note-Hospitalist Normal [facility] BMPon 10-22-2021 Anion gap [Moles/Vol] 10 mmol/L Normal 5-16 [facility] Comment on above: Order Comment: Campu s: M Performed By: #### L 500.37323, L500.47949 ####[facility] CYKMWUHQWB0751 [place], [place] [address]Ck# [phone] Calcium [Mass/Vol] 8.9 mg/dL Normal 8.5-10.5 [facility] Comment on above: Order Comment: Campu s: M Result Comment: NOTE NEW NORMAL RANGE DUE TO REAGENT CHANGE Performed By: #### L 500.00366, L500.11807 ####[facility] CEOLHFKHMB2648 [place], [place] [address]Vi# [phone] Chloride [Moles/Vol] 109 mmol/L High 98-107 [facility] Comment on above: Order Comment: Campu s: M Performed By: #### L 500.44319, L500.10982 ####[facility] PUMFRSDUBS4471 [place], [place] [address]Tq# [phone] CO2 [Moles/Vol] 20.0 mmol/L Low 21-32 [facility] Comment on above: Order Comment: Campu s: M Performed By: #### L 500.14997, L500.46858 ####[facility] PTNKDDFWWK6433 [place], [place] [address]Jq# [phone] Creatinine [Mass/Vol] 0.63 mg/dL Normal 0.510-0.950 [facility] Comment on above: Order Comment: Campu s: M Result Comment: Cleopatra ents receiving either N-Acetylcysteine (NAC) orMetamizole prior to venipuncture, may have falsely depressedresults. Performed By: #### L 500.61996, L500.47589 ####[facility] UPSMSUTVRP7615 [place], [place] [address]Wh# [phone] Glucose [Mass/Vol] 237 mg/dL High 70-100 [facility] Comment on above: Order Comment: Campu s: M Result Comment: 70-1 00- Normal Fasting; 100-125 Impaired Fasting; greaterthan 126 on more than one result- Diabetes. ADA guidelines.Results may be falsely elevated after the administration ofSulfapyridine.Results may be falsely depressed after the administration ofSulfasalazine. Performed By: #### L 500.31204, L500.08044 ####[facility] ICPCNKGDAN6285 [place], [place] [address]Pp# [phone] Potassium [Moles/Vol] 3.8 mmol/L Normal 3.5-5.1 [facility] Comment on above: Order Comment: Campu s: M Performed By: #### L 500.50598, L500.14678 ####[facility] KFRQQZEDPF[address] [place] [address]Ni# [phone] Sodium [Moles/Vol] 140 mmol/L Normal 136-145 [facility] Comment on above: Order Comment: Campu s: M Performed By: #### L 500.39177, L500.43308 ####[facility] GDTZKPMOTC340[address] [place] [address]Uj# [phone] Urea nitrogen [Mass/Vol] 15 mg/dL Normal 7-26 [facility] Comment on above: Order Comment: Campu s: M Performed By: #### L 500.89066, L500.33958 ####[facility] WGRMDCHHZD8040 [place], [place] [address]Qi# [phone] Urea nitrogen/Creatinine [Mass ratio] 24 mg/mg Normal 15-24 [facility] Comment on above: Order Comment: Campu s: M Performed By: #### L 500.08401, L500.55604 ####[facility] PEMQUBZXNB6047 [place], [place] [address]Ta# [phone] Urea nitrogen/Creatinine [Mass ratio] 25 mg/mg High 15-24 [facility] Comment on above: Order Comment: Campu s: M Performed By: #### L 500.84153, L500.73464, L500.42541, L500.25297 ####[facility] IUHJEBSPVX435[address] [place] [address]Ny# [phone] Anion gap [Moles/Vol] 12 mmol/L Normal 5-16 [facility] Comment on above: Order Comment: Campu s: M Performed By: #### L 500.01044, L500.59680, L500.18105, L500.69004 ####[facility] AWDLRYMVJQ1146 [place], [place] [address]Xd# [phone] Calcium [Mass/Vol] 10.1 mg/dL Normal 8.5-10.5 [facility] Comment on above: Order Comment: Campu s: M Result Comment: NOTE NEW NORMAL RANGE DUE TO REAGENT CHANGE Performed By: #### L 500.73086, L500.37875, L500.30067, L500.28028 ####[facility] CSOHESSSBS8982 [place], [place] [address]Zp# [phone] Chloride [Moles/Vol] 107 mmol/L Normal 98-107 [facility] Comment on above: Order Comment: Campu s: M Performed By: #### L 500.42994, L500.85311, L500.77109, L500.61748 ####[facility] IXQNZXXIXH7871 [place], [place] [address]Ot# [phone] CO2 [Moles/Vol] 20.0 mmol/L Low 21-32 [facility] Comment on above: Order Comment: Campu s: M Performed By: #### L 500.76405, L500.53947, L500.70593, L500.84766 ####[facility] SNHBVLZDRF8783 [place], [place] [address]Kz# [phone] Creatinine [Mass/Vol] 0.64 mg/dL Normal 0.510-0.950 [facility] Comment on above: Order Comment: Campu s: M Result Comment: Cleopatra ents receiving either N-Acetylcysteine (NAC) orMetamizole prior to venipuncture, may have falsely depressedresults. Performed By: #### L 500.09376, L500.86086, L500.54137, L500.82222 ####[facility] WLLQITYHOG2020 [place], [place] [address]Qc# [phone] Glucose [Mass/Vol] 309 mg/dL High 70-100 [facility] Comment on above: Order Comment: Campu s: M Result Comment: 70-1 00- Normal Fasting; 100-125 Impaired Fasting; greaterthan 126 on more than one result- Diabetes. ADA guidelines.Results may be falsely elevated after the administration ofSulfapyridine.Results may be falsely depressed after the administration ofSulfasalazine. Performed By: #### L 500.57011, L500.01013, L500.85033, L500.87181 ####[facility] WCNKGAEFZQ0258 [place], [place] [address]Ra# [phone] Potassium [Moles/Vol] 3.9 mmol/L Normal 3.5-5.1 [facility] Comment on above: Order Comment: Campu s: M Performed By: #### L 500.69553, L500.80275, L500.70595, L500.92970 ####[facility] PMAGGNUVGW2389 [place], [place] [address]Da# [phone] Sodium [Moles/Vol] 139 mmol/L Normal 136-145 [facility] Comment on above: Order Comment: Campu s: M Performed By: #### L 500.26963, L500.61930, L500.99064, L500.95304 ####[facility] NNVBJEYUTR0507 [place], [place] [address]Pi# [phone] Urea nitrogen [Mass/Vol] 16 mg/dL Normal 7-26 [facility] Comment on above: Order Comment: Campu s: M Performed By: #### L 500.45281, L500.97089, L500.51625, L500.59711 ####[facility] PNVTCQQHNH6694 [place], [place] [address]Zq# [phone] CBC W/DIFFon 10-22-2021 BASO ABS 0.10 K/CU MM Normal 0-0.2 [facility] Comment on above: Order Comment: Campu s: M Performed By: #### L 200.30826 ####[facility] AJXBESTBFW8257 [place], [place] [address]Oy# [phone] Basophils/100 WBC (Bld) 0.2 % Normal 0-2 [facility] Comment on above: Order Comment: Campu s: M Performed By: #### L 200.72714 ####[address] [address]Uc# [phone] EOS ABS 0.00 K/CU MM Normal 0-0.5 [facility] Comment on above: Order Comment: Campu s: M Performed By: #### L 200.34487 ####[place] [address]004[address]Ph# [phone] Eosinophils/100 WBC (Bld) 0.0 % Normal 0-5 [facility] Comment on above: Order Comment: Campu s: M Performed By: #### L 200.07266 ####[address] [address]Pq# [phone] Erythrocyte distribution width (RBC) [Ratio] 13.5 % Normal 11-14.5 [facility] Comment on above: Order Comment: Campu s: M Performed By: #### L 200.22097 ####[address] [address]Yj# [phone] Hematocrit (Bld) [Volume fraction] 39.5 % Normal 35.0-47.0 [facility] Comment on above: Order Comment: Campu s: M Performed By: #### L 200.83476 ####[facility] WOADUBROVX139[address] [place] [address]Wa# [phone] Hemoglobin (Bld) [Mass/Vol] 13.4 g/dL Normal 11.5-15.5 [facility] Comment on above: Order Comment: Campu s: M Performed By: #### L 200.42813 ####[facility] LAKHCRQPVL90[address] [place], [place] [address]Ph# [phone] IMMATR GRAN ABS 0.20 K/CU MM Normal Less than 2 [facility] Comment on above: Order Comment: Campu s: M Performed By: #### L 200.98188 ####[facility] LPOYCVXLAP6243 [place], [place] [address]Ja# [phone] IMMATURE GRAN % 1.0 % Normal Less than 2 [facility] Comment on above: Order Comment: Campu s: M Performed By: #### L 200.77110 ####[place] [address]004[address]Ph# [phone] LYMPH ABS 1.30 K/CU MM Normal 0.9-4.4 [facility] Comment on above: Order Comment: Campu s: M Performed By: #### L 200.87286 ####[place] [address]004[address]Ph# [phone] Lymphocytes/100 WBC (Bld) 5.6 % Low 20-40 [facility] Comment on above: Order Comment: Campu s: M Performed By: #### L 200.46271 ####[facility] RNFQUBHRCH227[address] [place], [place] [address]Ph# [phone] MCHC (RBC) [Mass/Vol] 33.9 g/dL Normal 32.0-36.0 [facility] Comment on above: Order Comment: Campu s: M Performed By: #### L 200.53772 ####[facility] YSKBZAIIBX06[address] [place], [place] [address]Ph# [phone] MCV (RBC) [Entitic vol] 84.4 fL Normal 80.0-99.0 [facility] Comment on above: Order Comment: Campu s: M Performed By: #### L 200.91815 ####[facility] AFTLIZIQCG8033[address] [place], [place] [address]Ph# [phone] MONO ABS 0.60 K/CU MM Normal 0.1-1.1 [facility] Comment on above: Order Comment: Campu s: M Performed By: #### L 200.47756 ####[facility] AMYMUZHYWZ8157 [place], [place] [address]Ly# [phone] Monocytes/100 WBC (Bld) 2.6 % Normal 2-10 [facility] Comment on above: Order Comment: Campu s: M Performed By: #### L 200.14087 ####[facility] QYJICULPTH[address] [place] [address]Oh# [phone] NEUTROPHIL ABS 20.70 K/CU MM High 2.0-8.3 [facility] Comment on above: Order Comment: Campu s: M Performed By: #### L 200.56080 ####[facility] JUIAAAERSJ[address] [place] [address]On# [phone] Neutrophils/100 WBC (Bld) 90.6 % High 45-75 [facility] Comment on above: Order Comment: Campu s: M Performed By: #### L 200.46219 ####[facility] IVEYAWYCUQ4198 [place], [place] [address]Cy# [phone] Nucleated RBC/100 WBC (Bld) [Ratio] 0.0 % Normal Less than 1 [facility] Comment on above: Order Comment: Campu s: M Performed By: #### L 200.49307 ####[facility] ZMSBRJPCVY8481 [place], [place] [address]Yd# [phone] Platelet mean volume (Bld) [Entitic vol] 13.2 fL High 9.4-12.4 [facility] Comment on above: Order Comment: Campu s: M Performed By: #### L 200.42323 ####[facility] ZQVZOITGOD3611 [place], [place] [address]Rk# [phone] PLT 164 K/CU MM Normal 150-450 [facility] Comment on above: Order Comment: Campu s: M Result Comment: Conf irmed by slide estimate. Performed By: #### L 200.75243 ####[facility] NONHRNXLIU3908 [place] [address]Ph# [phone] PLT EST ADEQUATE Normal [facility] Comment on above: Order Comment: Campu s: M Performed By: #### L 200.81654 ####[facility] ESMDZVCGJC9848 [place], [place] [address]Mj# [phone] POIK 1+ Normal [facility] Comment on above: Order Comment: Campu s: M Performed By: #### L 200.13439 ####[facility] FAMYTXNXJQ3369 [place], [place] [address]Ap# [phone] POLY 1+ Normal [facility] Comment on above: Order Comment: Campu s: M Performed By: #### L 200.91153 ####[facility] KIWAGMXKRS6773 [place], [place] [address]Ra# [phone] RBC 4.68 M/CU MM Normal 3.90-5.30 [facility] Comment on above: Order Comment: Campu s: M Performed By: #### L 200.42926 ####[facility] ZALTQLCGQV9052 [place], [place] [address]Ev# [phone] WBC 22.9 K/CUMM High 4.5-11.0 [facility] Comment on above: Order Comment: Campu s: M Performed By: #### L 200.83205 ####[facility] TXHIMZQTFU[address] [place] [address]Jn# [phone] Stacie 10-22-2021 EMERGENCY PHYSICIAN REPORT This is a preliminary report only, as the practitioner review and authentication has not occurred. Normal [facility] GFR ESTon 10-22-2021 IF AMER Greater than 60 [facility] Comment on above: Order Comment: Campu s: M Performed By: #### L 500.58212, L500.97328 ####[facility] HRPBDXECAF6081 [place], [place] [address]Vd# [phone] IF non-AFR AMER Greater than 60 Normal [facility] Comment on above: Order Comment: Campu s: M Performed By: #### L 500.47924, L500.55165 ####[facility] ZXEBKGMBNQ7431 [place], [place] [address]Ww# [phone] IF AMER Greater than 60 Normal [facility] Comment on above: Order Comment: Campu s: M Performed By: #### L 500.38770, L500.52689, L500.22094, L500.45092 ####[facility] ALDHIYPZTL4973 [place], [place] [address]Qg# [phone] IF non-AFR AMER Greater than 60 Normal [facility] Comment on above: Order Comment: Campu s: M Performed By: #### L 500.23084, L500.38931, L500.35412, L500.80828 ####[facility] FFPWVEUMBO7908 [place], [place] [address]Ba# [phone] GLUCOSE METERon 10-22-2021 Glucose [Mass/Vol] 145 mg/dL High 70-115 [facility] Glucose [Mass/Vol] 255 mg/dL High 70-115 [facility] Glucose [Mass/Vol] 232 mg/dL High 70-115 [facility] Glucose [Mass/Vol] 269 mg/dL High 70-115 [facility] Glucose [Mass/Vol] 249 mg/dL High 70-115 [facility] HPon 10-22-[address] [facility] LIPASEon 10-22-2021 Lipase [Catalytic activity/Vol] 18 U/L Normal 12-60 [facility] Comment on above: Order Comment: Campu s: M Result Comment: NOTE NEW NORMAL RANGE DUE TO REAGENT CHANGE Performed By: #### L 500.88627, L500.10251, L500.11401, L500.98734 ####[facility] AXDJPFLSQC0727 [place], [place] [address]Tj# [phone] LIVERon 10-22-2021 Globulin (S) [Mass/Vol] 2.8 g/dL Normal 2.2-4.2 [facility] Comment on above: Order Comment: Campu s: M Performed By: #### L 500.41532, L500.19315, L500.84519, L500.43988 ####[facility] XWRESYSQCM1930 [place], [place] [address]Hi# [phone] Albumin/Globulin [Mass ratio] 1.54 {ratio} Normal 0.8-2.0 [facility] Comment on above: Order Comment: Campu s: M Performed By: #### L 500.85464, L500.31809, L500.90483, L500.75910 ####[facility] [id number] [place], [place] [address]Fc# [phone] Albumin [Mass/Vol] 4.3 g/dL Normal 3.2-5.0 [facility] Comment on above: Order Comment: Campu s: M Performed By: #### L 500.50168, L500.45949, L500.42479, L500.68337 ####[facility] [id number] [place], [place] [address]Aq# [phone] ALK PHOS 100 U/L Normal 45-117 [facility] Comment on above: Order Comment: Campu s: M Performed By: #### L 500.44779, L500.83184, L500.08508, L500.36878 ####[facility] [id number] [place], [place] [address]Wp# [phone] ALT [Catalytic activity/Vol] 9 U/L Low 13-61 [facility] [facility] Comment on above: Order Comment: Campu s: M Result Comment: RESU LTS MAY BE FALSELY DEPRESSED AFTER THE ADMINISTRATION OFSULFASALAZINE AND/OR SULFAPYRIDINE. Performed By: #### L 500.90043, L500.52650, L500.56939, L500.35138 ####[facility] [id number] [place], [place] [address]Vu# [phone] AST [Catalytic activity/Vol] 12 U/L Normal 8-34 [facility] Comment on above: Order Comment: Campu s: M Result Comment: RESU LTS MAY BE FALSELY DEPRESSED AFTER THE ADMINISTRATION OFSULFASALAZINE AND/OR SULFAPYRIDINE. Performed By: #### L 500.94174, L500.89301, L500.28633, L500.17988 ####[facility] AMLKYGZNZT4508 [place], [place] [address]Rv# [phone] BILI DIRECT 0.3 MG/DL Normal 0.00-0.36 [facility] Comment on above: Order Comment: Campu s: M Result Comment: NOTE NEW NORMAL RANGE DUE TO REAGENT CHANGE Performed By: #### L 500.77865, L500.00739, L500.80317, L500.36820 ####[facility] DXPWQWBQWC0659 [place], [place] [address]Zj# [phone] BILI TOTAL 0.80 MG/DL Normal 0.2-1.0 [facility] Comment on above: Order Comment: Campu s: M Performed By: #### L 500.08613, L500.18135, L500.28518, L500.98324 ####[facility] MZCAYKZNGS6586 [place], [place] [address]Rd# [phone] Protein [Mass/Vol] 7.1 g/dL Normal 6.0-8.5 [facility] Comment on above: Order Comment: Campu s: M Performed By: #### L 500.63627, L500.46160, L500.03196, L500.34179 ####[facility] [id number] [place] [address]Xp# [phone] [id number] 10-22-2021 SARS-CoV-2 (COVID-19) RNA DANIEL+probe Ql (Unsp spec) Negative Invalid Interpretation Code Negative [facility] Comment on above: Order Comment: Campu s: M Result Comment: RESU LTS CALLED TO ALONZO MORALES/JUSTIN 0106 10/22/21 BY JHOANA PALMERNegative results do not preclude SARS-CoV-2 infection andshould not be used as the sole basis for treatment or otherpatient management decisions. Negative results must becombined with clinical observation, patient history, andepidemiological information.This test was performed by PCR. Performed By: #### L 770.70923 ####[facility] [id number] [place], [place] [address]Pb# [phone] UA COMPLETEon 10-22-2021 UA UROBILINOGEN Negative Normal NORMAL [facility] Comment on above: Order Comment: Campu s: M Performed By: #### L 600.89452 ####[facility] PKPOSFAMHM9444 [place], [place] [address]Xq# [phone] Color (U) YELLOW Normal [facility] Comment on above: Order Comment: Campu s: M Performed By: #### L 600.56575 ####[facility] XNZTGIECVB3660 [place], [place] [address]Ig# [phone] Glucose (U) [Mass/Vol] mg/dL Normal NORMAL [facility] Comment on above: Order Comment: Campu s: M Performed By: #### L 600.32788 ####[facility] UVQSSAROQD5140 [place], [place] [address]Au# [phone] Mucus Ql (Urine sed) TRACE Normal NEGATIVE [facility] Comment on above: Order Comment: Campu s: M Performed By: #### L 600.27983 ####[facility] [id number] [place], [place] [address]Al# [phone] SQUAMOUS EPIS 2 EPI/HPF Normal 0-5 [facility] Comment on above: Order Comment: Campu s: M Performed By: #### L 600.98060 ####[facility] XIZPQKENJV8785 [place], [place] [address]Be# [phone] UA APPEARANCE CLEAR Normal CLEAR [facility] Comment on above: Order Comment: Campu s: M Performed By: #### L 600.12691 ####[facility] KDSJINMZKL1159 [place], [place] [address]Gx# [phone] UA BACTERIA NONE Normal NONE [facility] Comment on above: Order Comment: Campu s: M Performed By: #### L 600.84530 ####[facility] [id number] [place], [place] [address]Gl# [phone] UA BILIRUBIN Negative Normal NEGATIVE [facility] Comment on above: Order Comment: Campu s: M Performed By: #### L 600.75111 ####[facility] [id number] [place] [address]Fo# [phone] UA BLOOD SMALL Normal NEGATIVE [facility] Comment on above: Order Comment: Campu s: M Performed By: #### L 600.88377 ####[facility] VQYDWAKRPM66[address] [place] [address]Dc# [phone] UA KETONE 80 Normal NEGATIVE [facility] Comment on above: Order Comment: Campu s: M Performed By: #### L 600.12121 ####[facility] GTLLHSLSZY[address] [place] [address]Vt# [phone] UA LK ESTERASE N Normal NEGATIVE [facility] Comment on above: Order Comment: Campu s: M Performed By: #### L 600.17324 ####[facility] [id number] [place] [address]Mb# [phone] UA NITRITE Negative Normal NEGATIVE [facility] Comment on above: Order Comment: Campu s: M Performed By: #### L 600.65985 ####[facility] MMAFZMGUVC[address] [place] [address]Im# [phone] UA PH 6.0 Normal 5-6 [facility] Comment on above: Order Comment: Campu s: M Performed By: #### L 600.15951 ####[facility] ZGETYABDZX550[address] [place] [address]Wm# [phone] UA PROTEIN 30 Normal NEGATIVE [facility] Comment on above: Order Comment: Campu s: M Performed By: #### L 600.43214 ####[facility] CRANPXYOWV79[address] [place] [address]Du# [phone] UA RBC NONE Low 0-3 [facility] Comment on above: Order Comment: Campu s: M Performed By: #### L 600.73433 ####[facility] KQNNOQUVSR3119 [place], [place] [address]Pj# [phone] UA SPEC GRAV 1.023 Normal 1.005-1.030 [facility] Comment on above: Order Comment: Campu s: M Performed By: #### L 600.98100 ####[facility] VXXOACIRGT998[address] [place] [address]La# [phone] UA WBC 1 WBC/HPF Normal 0-5 [facility] Comment on above: Order Comment: Campu s: M Performed By: #### L 600.35132 ####[facility] RNQBAXBWCH798[address] [place] [address]Qr# [phone] VBG PHon 10-22-2021 VBG PH 7.49 MMHG High 7.31-7.41 [facility] Comment on above: Order Comment: Campu s: M Performed By: #### L 100.73643 ####[facility] WNPRAVALLM[address] [place] [address]Ix# [phone] BLOOD CULTUREon 06-09-2021 Bacteria identified Cx Nom (Bld) NO GROWTH AFTER 5 DAYS Normal [facility] Comment on above: Order Comment: Campu s: M Performed By: #### M 050.99433 ####[facility] [id number] [place] [address]Os# [phone] Bacteria identified Cx Nom (Bld) NO GROWTH AFTER 5 DAYS [facility] Comment on above: Order Comment: Campu s: M Performed By: #### M 050.58841 ####[facility] JXBAIJKMGY[address] [place] [address]Dx# [phone] GLUCOSE METERon 06-07-2021 Glucose [Mass/Vol] 44 mg/dL Critically low 70-115 [facility] 06-05-2021 Bacteria identified Cx Nom (Bld) NO GROWTH AFTER 5 DAYS Normal [facility] Comment on above: Order Comment: Zach s: M Performed By: #### M 050.61776 ####[facility] UKBSMSWGJY8980 [place], [place] [address]Tx# [phone] DISCH.SUMon 06-05-2021 DISCH.SUM Normal [facility] MET[facility]on 06-05-2021 Glucose [Mass/Vol] 104 mg/dL Normal 70-115 [facility] Glucose [Mass/Vol] 83 mg/dL Normal 70-115 [facility] Glucose [Mass/Vol] 105 mg/dL Normal 70-115 [facility] Glucose [Mass/Vol] 177 mg/dL High 70-115 [facility] Glucose [Mass/Vol] 61 mg/dL Low 70-115 [facility] PR[facility].ENDOon 06-05-2021 PROG.ENDO Normal [facility] Progress Note-Endocrinology Normal [facility] BCID PCRon 06-04-2021 BC ACINETOBACTE Not detected Normal NOT DETECTD [facility] Comment on above: Performed By: #### L 770. ####[facility] IIVGKEVKSQ9808 [place], [place] [address]Ay# [phone] BC BETA STREP A Not detected Normal NOT DETECTD [facility] Comment on above: Performed By: #### L 770. ####[facility] GOSQXARKTR3441 [place], [place] [address]Zk# [phone] BC BETA STREP B Not detected Normal NOT DETECTD [facility] Comment on above: Performed By: #### L 770.20736 ####[facility] MTXKGYSWIK4480 [place], [place] [address]Dj# [phone] BC C ALBICANS Not detected Normal NOT DETECTD [facility] Comment on above: Performed By: #### L 770.23762 ####[facility] RAAGPGCWYM7086 [place], [place] [address]Ht# [phone] BC C GLABRATA Not detected Normal NOT DETECTD [facility] Comment on above: Performed By: #### L 770.62410 ####[facility] PVFLGXQJAS0325 [place], [place] [address]Qf# [phone] BC C KRUSEI Not detected Normal NOT DETECTD [facility] Comment on above: Performed By: #### L 770.49104 ####[facility] QWGFOILKGZ6883 [place], [place] [address]Up# [phone] BC C PARAPSILOS Not detected Normal NOT DETECTD [facility] Comment on above: Performed By: #### L 770.58204 ####[facility] VAQVMTURKQ3170 [place], [place] [address]Ku# [phone] BC C TROPICALIS Not detected Normal NOT DETECTD [facility] Comment on above: Performed By: #### L 770. ####[facility] OLWBKRDIMN8790 [place], [place] [address]Xu# [phone] BC E COLI Not detected Normal NOT DETECTD [facility] Comment on above: Performed By: #### L 770. ####[facility] PMGHCSURUO7637 [place], [place] [address]Ns# [phone] BC ENTER CLOACA Not detected Normal NOT DETECTD [facility] Comment on above: Performed By: #### L 770.95626 ####[facility] CXKGUPPCZF4485 [place], [place] [address]Fb# [phone] BC ENTEROCOCCUS Not detected Normal NOT DETECTD [facility] Comment on above: Performed By: #### L 770.17452 ####[facility] GAEKZKETKE7940 [place], [place] [address]Ug# [phone] BC H.INFLUENZA Not detected Normal NOT DETECTD [facility] Comment on above: Performed By: #### L 770.71746 ####[facility] BTXKDMJLZE5466 [place], [place] [address]Bo# [phone] BC KLEB OXYTOCA Not detected Normal NOT DETECTD [facility] Comment on above: Performed By: #### L 770.21237 ####[facility] RHNHXEHATG7212 [place], [place] [address]Gt# [phone] BC KLEB PNEUMO Not detected Normal NOT DETECTD [facility] Comment on above: Performed By: #### L 770.62841 ####[facility] YQWNCPMPCY1349 [place], [place] [address]Tq# [phone] BC KPC Not detected Normal NOT DETECTD [facility] Comment on above: Performed By: #### L 770.14631 ####[facility] RNBBFURFOQ[address] [place] [address]Wp# [phone] BC LISTERIA Not detected Normal NOT DETECTD [facility] Comment on above: Performed By: #### L 770.32611 ####[facility] RUSCBHFDRX09[address] [place] [address]Yw# [phone] BC MEC A Not detected Normal NOT DETECTD [facility] Comment on above: Performed By: #### L 770.51464 ####[facility] JYCEZIFGNE[address] [place] [address]Qz# [phone] BC N MENINGITID Not detected Normal NOT DETECTD [facility] Comment on above: Performed By: #### L 770.52860 ####[facility] ENSWFDEZMI[address] [place] [address]Cp# [phone] BC PROTEUS SP. Not detected Normal NOT DETECTD [facility] Comment on above: Performed By: #### L 770.78171 ####[facility] PWIPESMHCI9[address] [place] [address]Le# [phone] BC PSEUDO AERUG Not detected Normal NOT DETECTD [facility] Comment on above: Performed By: #### L 770.31282 ####[facility] WTTLJEULEO[address] [place] [address]Rp# [phone] BC SERRATIA MAR Not detected Normal NOT DETECTD [facility] Comment on above: Performed By: #### L 770.33914 ####[facility] PGDNOSNTGE0844 [place], [place] [address]Yu# [phone] BC STAPH AUREUS Not detected Normal NOT DETECTD [facility] Comment on above: Performed By: #### L 770.63301 ####[facility] QMOFPDUIDY8303 [place], [place] [address]Ur# [phone] BC STAPH SPE. Not detected Normal NOT DETECTD [facility] Comment on above: Performed By: #### L 770.26448 ####[facility] HUWOGJZCRC3360 [place], [place] [address]Ef# [phone] BC STREP PNEUMO Not detected Normal NOT DETECTD [facility] Comment on above: Performed By: #### L 770.46103 ####[facility] EUUQMSTCCL7577 [place], [place] [address]Ww# [phone] BC STREPTOCOCCU Not detected Normal NOT DETECTD [facility] Comment on above: Performed By: #### L 770.07509 ####[facility] IKVGPCDZWK6640 [place], [place] [address]Zh# [phone] BC VAN A/B Not detected Normal NOT DETECTD [facility] Comment on above: Performed By: #### L 770.71423 ####[facility] BEIRHJZDOK1392 [place], [place] [address]Oq# [phone] ENTEROBACEAE SP Not detected Normal NOT DETECTD [facility] Comment on above: Performed By: #### L 770.13644 ####[facility] WLKXGVWARA5683 [place], [place] [address]Cq# [phone] BLOOD CULTUREon 06-04-2021 Bacteria identified Cx Nom (Bld) INITIAL POSITIVE BLOOD CULTURE RESULTS CALLED TO MICHELLE RN/8M AND READ BACK BY AT 201206/02/21 BY NANI CARLISLE ORGANISM 1: MICROCOCCUS SP./RELATED GENERA ID TO FOLLOW NOT VIABLE FOR SENSITIVITY Normal [facility] Comment on above: Order Comment: Campu s: M Performed By: #### M 050.27131 ####[facility] TGLYZYQUHX0976 [place], [place] [address]Up# [phone] GLUCOSE METERon 06-04-2021 Glucose [Mass/Vol] 161 mg/dL High 70-115 [facility] Glucose [Mass/Vol] 79 mg/dL Normal 70-115 [facility] Glucose [Mass/Vol] 236 mg/dL High 70-115 [facility] Glucose [Mass/Vol] 273 mg/dL High 70-115 [facility] Glucose [Mass/Vol] 221 mg/dL High 70-115 [facility] Glucose [Mass/Vol] 305 mg/dL High 70-115 [facility] PROG IMSon 06-04-2021 PROG IMS Normal [facility] Progress Note-Hospitalist Normal [facility] PROG.ENDOon 06-04-2021 PROG.ENDO Normal [facility] Progress Note-Endocrinology Normal [facility] BMPon 06-03-2021 Anion gap [Moles/Vol] 9 mmol/L Normal 5-16 [facility] Comment on above: Order Comment: Campu s: MMinimal Draw: Y Performed By: #### L 500.01056, L500.45194, L500.72560 ####[facility] VMQSVQZHSZ1871 [place], [place] [address]Kr# [phone] Calcium [Mass/Vol] 8.5 mg/dL Normal 8.5-10.5 [facility] Comment on above: Order Comment: Campu s: MMinimal Draw: Y Result Comment: NOTE NEW NORMAL RANGE DUE TO REAGENT CHANGE Performed By: #### L 500.69852, L500.14620, L500.01803 ####[facility] WONHDHSUDQ3582 [place], [place] [address]Tk# [phone] Chloride [Moles/Vol] 109 mmol/L High 98-107 [facility] Comment on above: Order Comment: Campu s: MMinimal Draw: Y Performed By: #### L 500.74935, L500.85666, L500.67711 ####[facility] HZQFELJJXK2428 [place], [place] [address]Bb# [phone] CO2 [Moles/Vol] 23.0 mmol/L Normal 21-32 [facility] Comment on above: Order Comment: Campu s: MMinimal Draw: Y Performed By: #### L 500.81732, L500.17370, L500.77455 ####[facility] DHBPFEKLGQ7737 [place], [place] [address]Hj# [phone] Creatinine [Mass/Vol] 0.70 mg/dL Normal 0.510-0.950 [facility] Comment on above: Order Comment: Campu s: MMinimal Draw: Y Result Comment: Cleopatra ents receiving either N-Acetylcysteine (NAC) orMetamizole prior to venipuncture, may have falsely depressedresults. Performed By: #### L 500.49246, L500.32869, L500.29087 ####[facility] OEMYOAQXGY0370 [place], [place] [address]Sx# [phone] Glucose [Mass/Vol] 303 mg/dL High 70-100 [facility] Comment on above: Order Comment: Campu s: MMinimal Draw: Y Result Comment: 70-1 00- Normal Fasting; 100-125 Impaired Fasting; greaterthan 126 on more than one result- Diabetes. ADA guidelines.Results may be falsely elevated after the administration ofSulfapyridine.Results may be falsely depressed after the administration ofSulfasalazine. Performed By: #### L 500.22856, L500.31228, L500.40906 ####[facility] KHGUGJWSUV8270 [place], [place] [address]Qv# [phone] Potassium [Moles/Vol] 4.4 mmol/L Normal 3.5-5.1 [facility] Comment on above: Order Comment: Campu s: MMinimal Draw: Y Result Comment: Slig ht Hemolysis, Result may be affected. Performed By: #### L 500.32735, L500.87614, L500.86998 ####[facility] SQNMLGYSTG1423 [place], [place] [address]Us# [phone] Sodium [Moles/Vol] 141 mmol/L Normal 136-145 [facility] Comment on above: Order Comment: Campu s: MMinimal Draw: Y Performed By: #### L 500.68435, L500.80342, L500.02479 ####[facility] PXXTOJPDKL1846 [place], [place] [address]Nh# [phone] Urea nitrogen [Mass/Vol] 16 mg/dL Normal 7-26 [facility] Comment on above: Order Comment: Campu s: MMinimal Draw: Y Performed By: #### L 500.66884, L500.58531, L500.37309 ####[facility] ORLXVRPMZM1550 [place], [place] [address]Kk# [phone] Urea nitrogen/Creatinine [Mass ratio] 23 mg/mg Normal 15-24 [facility] Comment on above: Order Comment: Campu s: MMinimal Draw: Y Performed By: #### L 500.71239, L500.43418, L500.27263 ####[facility] WUBDFIFEPK5741 [place], [place] [address]Au# [phone] CBC W/DIFFon 06-03-2021 BASO ABS 0.00 K/CU MM Normal 0-0.2 [facility] Comment on above: Order Comment: Campu s: MMinimal Draw: Y Performed By: #### L 200.79269 ####[facility] TIJTGIUYEN[address] [place] [address]Mo# [phone] Basophils/100 WBC (Bld) 0.2 % Normal 0-2 [facility] Comment on above: Order Comment: Campu s: MMinimal Draw: Y Performed By: #### L 200.01522 ####[facility] NETIVNJILP8[address] [place] [address]Zx# [phone] EOS ABS 0.00 K/CU MM Normal 0-0.5 [facility] Comment on above: Order Comment: Campu s: MMinimal Draw: Y Performed By: #### L 200.71035 ####[facility] MGDJAKJMGO34[address] [place] [address]Pi# [phone] Eosinophils/100 WBC (Bld) 0.3 % Normal 0-5 [facility] Comment on above: Order Comment: Campu s: MMinimal Draw: Y Performed By: #### L 200.00417 ####[facility] KEGPQOXNOY[address] [place] [address]Sl# [phone] Erythrocyte distribution width (RBC) [Ratio] 15.1 % High 11-14.5 [facility] Comment on above: Order Comment: Campu s: MMinimal Draw: Y Performed By: #### L 200.10530 ####[place] [address]004208Ph# [phone] Hematocrit (Bld) [Volume fraction] 29.3 % Low 35.0-47.0 [facility] Comment on above: Order Comment: Campu s: MMinimal Draw: Y Performed By: #### L 200.69088 ####[facility] MAVXKPVGLN[address] [place], [place] [address]Ph# [phone] Hemoglobin (Bld) [Mass/Vol] 9.4 g/dL Low 11.5-15.5 [facility] Comment on above: Order Comment: Campu s: MMinimal Draw: Y Result Comment: Repe ated and verified. Performed By: #### L 200.00779 ####[facility] [id number] [place], [place] [address]Ph# [phone] IMMATR GRAN ABS 0.10 K/CU MM Normal Less than 2 [facility] Comment on above: Order Comment: Campu s: MMinimal Draw: Y Performed By: #### L 200.38728 ####[facility] [id number] [place], [place] [address]Ph# [phone] IMMATURE GRAN % 0.8 % Normal Less than 2 [facility] Comment on above: Order Comment: Campu s: MMinimal Draw: Y Performed By: #### L 200.78612 ####[facility] VPQBQSYDLF[address] [place], [place] [address]Ph# [phone] LYMPH ABS 2.90 K/CU MM Normal 0.9-4.4 [facility] Comment on above: Order Comment: Campu s: MMinimal Draw: Y Performed By: #### L 200.83968 ####[facility] HZNJNBBGYC[address] [place], [place] [address]Ph# [phone] Lymphocytes/100 WBC (Bld) 25.7 % Normal 20-40 [facility] Comment on above: Order Comment: Campu s: MMinimal Draw: Y Performed By: #### L 200.42631 ####[place] [address]004[address]Ph# [phone] MCHC (RBC) [Mass/Vol] 32.1 g/dL Normal 32.0-36.0 [facility] Comment on above: Order Comment: Campu s: MMinimal Draw: Y Performed By: #### L 200.96040 ####[place] [address]004[address]Ph# [phone] MCV (RBC) [Entitic vol] 87.5 fL Normal 80.0-99.0 [facility] Comment on above: Order Comment: Campu s: MMinimal Draw: Y Performed By: #### L 200.49460 ####[place] [address]004[address]Ph# [phone] MONO ABS 0.50 K/CU MM Normal 0.1-1.1 [facility] Comment on above: Order Comment: Campu s: MMinimal Draw: Y Performed By: #### L 200.43279 ####[facility] WJNXRUQBZW[address] [place], [place] [address]Ph# [phone] Monocytes/100 WBC (Bld) 4.3 % Normal 2-10 [facility] Comment on above: Order Comment: Campu s: MMinimal Draw: Y Performed By: #### L 200.23520 ####[facility] [id number] [place], [place] [address]Ph# [phone] NEUTROPHIL ABS 7.70 K/CU MM Normal 2.0-8.3 [facility] Comment on above: Order Comment: Campu s: MMinimal Draw: Y Performed By: #### L 200.05110 ####[facility] OETGGYLZQZ8516 [place], [place] [address]Yy# [phone] Neutrophils/100 WBC (Bld) 68.7 % Normal 45-75 [facility] Comment on above: Order Comment: Campu s: MMinimal Draw: Y Performed By: #### L 200.06686 ####[facility] LSHNPWIIYD2224 [place], [place] [address]Og# [phone] Nucleated RBC/100 WBC (Bld) [Ratio] 0.0 % Normal Less than 1 [facility] Comment on above: Order Comment: Campu s: MMinimal Draw: Y Performed By: #### L 200.49544 ####[facility] TDIRRYBMLY[address] [place] [address]Rk# [phone] Platelet mean volume (Bld) [Entitic vol] 11.6 fL Normal 9.4-12.4 [facility] Comment on above: Order Comment: Campu s: MMinimal Draw: Y Performed By: #### L 200.51316 ####[facility] WPUAIBGKQC19[address] [place] [address]Su# [phone] PLT 166 K/CU MM Normal 150-450 [facility] Comment on above: Order Comment: Campu s: MMinimal Draw: Y Performed By: #### L 200.91100 ####[facility] AJFCJINYQN3331 [place], [place] [address]Hb# [phone] RBC 3.35 M/CU MM Low 3.90-5.30 [facility] Comment on above: Order Comment: Campu s: MMinimal Draw: Y Performed By: #### L 200.76891 ####[facility] LXOSDRKLIF9[address] [place] [address]Pf# [phone] WBC 11.3 K/CUMM High 4.5-11.0 [facility] Comment on above: Order Comment: Campu s: MMinimal Draw: Y Performed By: #### L 200.15468 ####[facility] TVJTFDPABS1284 [place], [place] [address]Rc# [phone] GFR ESTon 06-03-2021 IF AMER Greater than 60 [facility] Comment on above: Order Comment: Campu s: MMinimal Draw: Y Performed By: #### L 500.15142, L500.00979, L500.04228 ####[facility] DLPRACCWKN4151 [place], [place] [address]Tc# [phone] IF non-AFR AMER Greater than 60 [facility] Comment on above: Order Comment: Campu s: MMinimal Draw: Y Performed By: #### L 500.57570, L500.28903, L500.08069 ####[facility] XPPOYCSBJU4081 [place], [place] [address]Pa# [phone] GLUCOSE METERon 06-03-2021 Glucose [Mass/Vol] 227 mg/dL High 70-115 [facility] Glucose [Mass/Vol] 182 mg/dL High 70-115 [facility] Glucose [Mass/Vol] 299 mg/dL High 70-115 [facility] PROG IMSon 06-03-2021 PROG IMS Normal [facility] Progress Note-Hospitalist Normal [facility] PROG.ENDOon 06-03-2021 PROG.ENDO Normal [facility] Progress Note-Endocrinology Normal [facility] TSHon 06-03-2021 TSH 6.118 UIU/ML High 0.358-3.740 [facility] Comment on above: Order Comment: Campu s: MMinimal Draw: Y Result Comment: 3rd generation ultra sensitive TSH Performed By: #### L 500.74964, L500.64322, L500.04022 ####[facility] RABKKOOVDY6291 [place], [place] [address]By# [phone] CONS.ENDOon 06-02-2021 CONS.ENDO [facility]ENDOCRINO LOGY Normal [facility] GLUCOSE METERon 06-02-2021 Glucose [Mass/Vol] 372 mg/dL High 70-115 [facility] Glucose [Mass/Vol] 255 mg/dL High 70-115 [facility] Glucose [Mass/Vol] 210 mg/dL High 70-115 [facility] Glucose [Mass/Vol] 205 mg/dL High 70-115 [facility] PROG IMSon 06-02-[address] [facility] Progress Note-Hospitalist [facility] BMPon 06-01-2021 Anion gap [Moles/Vol] 23 mmol/L High 5-16 [facility] Comment on above: Order Comment: Campu s: M Performed By: #### L 500.99602, L500.62457 ####[facility] RLSFTLIYKK8186 [place], [place] [address]Rl# [phone] Calcium [Mass/Vol] 9.4 mg/dL Normal 8.5-10.5 [facility] Comment on above: Order Comment: Campu s: M Result Comment: NOTE NEW NORMAL RANGE DUE TO REAGENT CHANGE Performed By: #### L 500.25472, L500.56232 ####[facility] AXFEVYJRXQ2915 [place], [place] [address]Jq# [phone] Chloride [Moles/Vol] 103 mmol/L Normal 98-107 [facility] Comment on above: Order Comment: Campu s: M Performed By: #### L 500.81321, L500.67976 ####[facility] HOAEBORTGB0730 [place], [place] [address]Oh# [phone] CO2 [Moles/Vol] 11.0 mmol/L Low 21-32 [facility] Comment on above: Order Comment: Campu s: M Result Comment: Delt a check reviewed Performed By: #### L 500.74275, L500.41987 ####[facility] KTKLFRKIRC2689 [place], [place] [address]Vh# [phone] Creatinine [Mass/Vol] 0.71 mg/dL Normal 0.510-0.950 [facility] Comment on above: Order Comment: Zach s: M Result Comment: Cleopatra ents receiving either N-Acetylcysteine (NAC) orMetamizole prior to venipuncture, may have falsely depressedresults. Performed By: #### L 500.22053, L500.68587 ####[facility] ELAINPRIOB2361 [place], [place] [address]Sc# [phone] Glucose [Mass/Vol] 447 mg/dL High 70-100 [facility] Comment on above: Order Comment: Zach s: M Result Comment: 70-1 00- Normal Fasting; 100-125 Impaired Fasting; greaterthan 126 on more than one result- Diabetes. ADA guidelines.Results may be falsely elevated after the administration ofSulfapyridine.Results may be falsely depressed after the administration ofSulfasalazine. Performed By: #### L 500.48761, L500.14051 ####[facility] SOUATSNQWI9580 [place], [place] [address]Hq# [phone] Potassium [Moles/Vol] 5.2 mmol/L High 3.5-5.1 [facility] Comment on above: Order Comment: Zach s: M Result Comment: Slig ht Hemolysis, Result may be affected. Performed By: #### L 500.77564, L500.90256 ####[facility] WDZXSPWLPS8474 [place], [place] [address]Eh# [phone] Sodium [Moles/Vol] 137 mmol/L Normal 136-145 [facility] Comment on above: Order Comment: Zach s: M Performed By: #### L 500.84731, L500.88215 ####[facility] EBCRXRYGXW3935 [place], [place] [address]By# [phone] Urea nitrogen [Mass/Vol] 20 mg/dL Normal 7-26 [facility] Comment on above: Order Comment: Zach s: M Result Comment: Slig ht Hemolysis, Result may be affected. Performed By: #### L 500.30718, L500.53652 ####[facility] OHBJTJIYSU4701 [place], [place] [address]Si# [phone] Urea nitrogen/Creatinine [Mass ratio] 28 mg/mg High 15-24 [facility] Comment on above: Order Comment: Campu s: M Performed By: #### L 500.19264, L500.35716 ####[facility] WOQUJYJRXA2474 [place], [place] [address]Ms# [phone] Stacie 06-01-2021 EMERGENCY PHYSICIAN REPORT This is a preliminary report only, as the practitioner review and authentication has not occurred. Normal [facility] GFR ESTon 06-01-2021 IF AMER Greater than 60 [facility] Comment on above: Order Comment: Campu s: M Performed By: #### L 500.38126, L500.51458 ####[facility] HVLYRUREFP5419 [place], [place] [address]Ct# [phone] IF non-AFR AMER Greater than 60 [facility] Comment on above: Order Comment: Campu s: M Performed By: #### L 500.43363, L500.09916 ####[facility] XWDVLPIEFR7292 [place], [place] [address]Od# [phone] GLUCOSE METERon 06-01-2021 Glucose [Mass/Vol] 384 mg/dL High 70-115 [facility] Glucose [Mass/Vol] 322 mg/dL High 70-115 [facility] Glucose [Mass/Vol] 550 mg/dL Critically high 70-115 [facility] GLUCOSE METER > 600 Critically high 70-115 [facility] Glucose [Mass/Vol] 450 mg/dL High 70-115 [facility] HP.IMS.ADMon 06-01-2021 Admission-H&P Normal [facility] HP.IMS.ADM Normal [facility] LACTIC ACIDon 06-01-2021 Lactate [Moles/Vol] 3.82 mmol/L High 0.40-2.00 [facility] Comment on above: Performed By: #### L 550.03573 ####[facility] TTOFJZQGQA3101 [place], [place] [address]Ha# [phone] PROCAL Aon 06-01-2021 PROCAL A 2.89 NG/ML High 0-0.50 [facility] Comment on above: Order Comment: Zach [...] results obtained fromthe [employer] platform vs the [employer] Vidas platform(previous).NOTE NEW NORMAL RANGE DUE TO REAGENT CHANGE Performed By: #### L 550.88787 ####[facility] FSLVTEBODZ8029 [place], [place] [address]Qp# [phone] PROG IMSon 06-01-2021 PROG IMS Normal [facility] Progress Note-Hospitalist Normal [facility] UR DRUG ABUSEon 06-01-2021 UR AMPH Negative Normal Kansyr=7223 [facility] Comment on above: Performed By: #### L 600.06768 ####[facility] IHQVFYXMBS0177 [place], [place] [address]Go# [phone] UR JARON Negative Normal Stxqnt=891 [facility] Comment on above: Performed By: #### L 600.08470 ####[facility] PBYWAXWJAK4455 [place], [place] [address]Og# [phone] UR TAMRA Negative Normal Bvnrkg=753 [facility] Comment on above: Performed By: #### L 600.75306 ####[facility] UGAGCTKREW1938 [place], [place] [address]If# [phone] UR MONTY/THC Positive Normal Cutoff=50 [facility] Comment on above: Performed By: #### L 600.28824 ####[facility] DKKOVISHGE8344 [place], [place] [address]Mn# [phone] UR ALISHA Negative Normal Djlttl=787 [facility] Comment on above: Performed By: #### L 600.27528 ####[facility] HEMINBTIAL[address] [place] [address]Lj# [phone] UR OPIAT Positive Normal Xtlcrp=072 [facility] Comment on above: Performed By: #### L 600.20581 ####[address] [address]Dh# [phone] UR PCP Negative Normal Cutoff=25 [facility] Comment on above: Performed By: #### L 600.97148 ####[address] [address]Cu# [phone] DRAB COMMENT Normal [facility] Comment on above: Result Comment: [employer] results are qualitative, providing apreliminary analytical result. A positive result for anassay should be confirmed by another nonimmunological,reference method. A negative result indicates that theassay material is either not present, or present at levelsbelow the cutoff threshold for the analytical method range(AMR) validation. Performed By: #### L 600.95770 ####[facility] ZLHRFKBWOA[address] [place] [address]Gi# [phone] ABGPon 05-31-2021 ABG BE -8.6 MML/L Low -2.0-2.0 [facility] Comment on above: Order Comment: Zach Ricks Performed By: #### L 100.76507 ####[facility] UDDCBNTMKW67[address] [place] [address]Ah# [phone] ABG COHBA 0.4 % Normal 0-10 [facility] Comment on above: Order Comment: Campu s: M Performed By: #### L 100.78837 ####[facility] PKYLAAHQLF6667 [place], [place] [address]Rh# [phone] ABG MET 0.3 % Low 0.4-1.5 [facility] Comment on above: Order Comment: Campu s: M Performed By: #### L 100.28974 ####[facility] FCRXXTCMCR4688 [place], [place] [address]Dk# [phone] ABG O2 CAPACITY 17.9 mL/dL Normal [facility] Comment on above: Order Comment: Campu s: M Performed By: #### L 100.42397 ####[facility] IPUJPLUZBC7558 [place], [place] [address]Gx# [phone] ABG O2 CONTENT 17.2 mL/dL Normal 15.7-21.6 [facility] Comment on above: Order Comment: Campu s: M Performed By: #### L 100.20997 ####[facility] UOWLLYVSEZ7657 [place], [place] [address]Wt# [phone] ABG O2HB SAT 93.9 % Normal 90-100 [facility] Comment on above: Order Comment: Campu s: M Performed By: #### L 100.11650 ####[facility] NUNYPSZLSA8793 [place], [place] [address]Qj# [phone] ABG PCO2 34.2 MMHG Low 35-45 [facility] Comment on above: Order Comment: Campu s: M Performed By: #### L 100.34472 ####[facility] RYYMBDPMBW4450 [place], [place] [address]Bn# [phone] ABG PH 7.31 Low 7.35-7.45 [facility] Comment on above: Order Comment: Campu s: M Performed By: #### L 100.34075 ####[facility] YRCZEDHYWL5688 [place], [place] [address]Vy# [phone] ABG PO2 85.7 MMHG Normal 80-100 [facility] Comment on above: Order Comment: Campu s: M Performed By: #### L 100.08656 ####[facility] NYWWVASBGL2512 [place], [place] [address]Yk# [phone] ABG REDUCED HGB 5.4 % High 0-5 [facility] Comment on above: Order Comment: Campu s: M Performed By: #### L 100.96746 ####[facility] GGZAFTLMYX44[address] [place] [address]Mj# [phone] GEM TEST Positive Normal [facility] Comment on above: Order Comment: Campu s: M Performed By: #### L 100.11560 ####[facility] CRGTPXMTWR[address] [place] [address]Gs# [phone] Body temperature 98.6 [degF] Normal [facility] Comment on above: Order Comment: Campu s: M Performed By: #### L 100.01203 ####[facility] WQVTWSRKUY[address] [place] [address]Zd# [phone] EQUIPMENT ROOM AIR Normal [facility] Comment on above: Order Comment: Campu s: M Performed By: #### L 100.19964 ####[facility] BMLZWAHLNI396[address] [place] [address]Br# [phone] FIO2 21 % Normal [facility] Comment on above: Order Comment: Campu s: M Performed By: #### L 100.64615 ####[facility] XZNZBGCEIA30[address] [place] [address]Gw# [phone] HCO3 (Bld) [Moles/Vol] 16.8 mmol/L Low 22-26 M [facility] Comment on above: Order Comment: Campu s: M Performed By: #### L 100.78313 ####[facility] ZHCBFZJFVC2232 [place], [place] [address]Bt# [phone] Hemoglobin (Bld) [Mass/Vol] 13.0 g/dL Normal 10-16 [facility] Comment on above: Order Comment: Campu s: M Performed By: #### L 100.73899 ####[facility] QWIKDOHRED[address] [place] [address]Br# [phone] SAMPLE SITE L RADIAL Normal [facility] Comment on above: Order Comment: Campu s: M Performed By: #### L .79246 ####[facility] UBFLFWSPAB[address] [place] [address]Vg# [phone] SAMPLE TYPE ARTERIAL Normal [facility] Comment on above: Order Comment: Campu s: M Performed By: #### L .04473 ####[facility] JJGJKFZRHM[address] [place] [address]Kq# [phone] ABGPEGLAon 05-31-2021 ABG BE -10.1 MML/L Low -2.0-2.0 [facility] Comment on above: Order Comment: Campu s: M Performed By: #### L .80886 ####[facility] RWPLJTSZMM375[address] [place] [address]Es# [phone] ABG COHBA 0.4 % Normal 0-10 [facility] Comment on above: Order Comment: Campu s: M Performed By: #### L 100.45632 ####[facility] TXMKSKAPIB1606 [place], [place] [address]Cc# [phone] ABG GLU 317.0 MG/DL High 60-80 [facility] Comment on above: Order Comment: Campu s: M Performed By: #### L 100.50618 ####[facility] SAAPGNJEHL198[address] [place] [address]Yl# [phone] ABG MET 0.3 % Low 0.4-1.5 [facility] Comment on above: Order Comment: Campu s: M Performed By: #### L .76770 ####[facility] QUXQYNNCJT9526 [place], [place] [address]Bg# [phone] ABG O2 CAPACITY 15.6 mL/dL Normal [facility] Comment on above: Order Comment: Campu s: M Performed By: #### L 100.12251 ####[facility] EXDNFNBDLK7333 [place], [place] [address]Bp# [phone] ABG O2 CONTENT 11.1 mL/dL Low 15.7-21.6 [facility] Comment on above: Order Comment: Campu s: M Performed By: #### L 100.75104 ####[facility] NEYLKSTIWT5492 [place], [place] [address]Ny# [phone] ABG O2HB SAT 69.7 % Critically low 90-100 [facility] Comment on above: Order Comment: Benjiu s: M Performed By: #### L 100.57099 ####[facility] [place], [place] [address]Ds# [phone] ABG PCO2 19.0 MMHG Critically low 35-45 [facility] Comment on above: Order Comment: Benjiu s: M Result Comment: CRIT ICAL VALUE(S) VERIFIED AND HAND DELIVERED TO AND READBACK BY DR CORTES AT 1829 05/31/21 BY ADAM CHOE Performed By: #### L 100.32703 ####[address] [place] [place], [place] [address]Yp# [phone] ABG PH 7.43 Normal 7.35-7.45 [facility] Comment on above: Order Comment: Benjiu s: M Performed By: #### L 100.60562 ####[facility] RHLYWIGXWN9827 [place], [place] [address]Mw# [phone] ABG PO2 37.4 MMHG Critically low 80-100 [facility] Comment on above: Order Comment: Benjiu s: M Performed By: #### L 100.26220 ####[facility] GEIJVRWHWE3578 [place], [place] [address]Uq# [phone] ABG REDUCED HGB 29.6 % Critically high 0-5 [facility] Comment on above: Order Comment: Benjiu s: M Performed By: #### L 100.73442 ####[facility] DVWPPZVSFA9248 [place], [place] [address]Xi# [phone] GEM TEST N/A Normal [facility] Comment on above: Order Comment: Campu s: M Performed By: #### L 100.73927 ####[facility] KAITTYRBPZ[address] [place] [address]Df# [phone] Body temperature 98.6 [degF] Normal [facility] Comment on above: Order Comment: Campu s: M Performed By: #### L 100.41951 ####[address] [address]Ne# [phone] EQUIPMENT ROOM AIR Normal [facility] Comment on above: Order Comment: Campu s: M Performed By: #### L 100.03096 ####[address] [address]Fq# [phone] HCO3 (Bld) [Moles/Vol] 12.2 mmol/L Low 22-26 M [facility] Comment on above: Order Comment: Campu s: M Performed By: #### L 100.63848 ####[address] [address]Eg# [phone] Hemoglobin (Bld) [Mass/Vol] 11.3 g/dL Normal 10-16 [facility] Comment on above: Order Comment: Campu s: M Performed By: #### L 100.16713 ####[facility] NICXSQYDRR150[address] [place] [address]Ff# [phone] IONIZED CA 0.95 MMOL/L Low 1.13-1.32 [facility] Comment on above: Order Comment: Campu s: M Performed By: #### L 100.11359 ####[facility] LTPHZCXVEM[address] [place] [address]Tw# [phone] LACTATE BLOOD 2.01 MMOL/L High 0.40-2.00 [facility] Comment on above: Order Comment: Campu s: M Performed By: #### L 100.13064 ####[facility] PQFMRNZNDR0987 [place], [place] [address]Xn# [phone] Potassium [Moles/Vol] 2.7 mmol/L Critically low 3.5-5.0 [facility] Comment on above: Order Comment: Campu s: M Performed By: #### L 100.97819 ####[facility] NRUDBNQMIP9387 [place], [place] [address]Vz# [phone] RESP. RATE 30 Normal [facility] Comment on above: Order Comment: Campu s: M Performed By: #### L 100.03619 ####[facility] HVVYRRYBBP164[address] [place] [address]It# [phone] SAMPLE SITE R BRACHIAL Normal [facility] Comment on above: Order Comment: Campu s: M Performed By: #### L .09674 ####[facility] HHQQZLGHCM57[address] [place] [address]Cq# [phone] SAMPLE TYPE ARTERIAL Normal [facility] Comment on above: Order Comment: Campu s: M Performed By: #### L 100.05188 ####[facility] JPKSITQPRE739[address] [place] [address]Oy# [phone] Sodium [Moles/Vol] 140 mmol/L Normal 136-148 [facility] Comment on above: Order Comment: Campu s: M Performed By: #### L 100.53400 ####[facility] SCOOBQRWKT[address] [place] [address]If# [phone] BMPon 05-31-2021 Anion gap [Moles/Vol] 16 mmol/L Normal 5-16 [facility] Comment on above: Order Comment: Campu s: M Performed By: #### L 500.50062, L500.73597, L500.78307, L500.02643 ####[facility] OEPMAKAFHD8278 [place], [place] [address]Lp# [phone] Calcium [Mass/Vol] 9.9 mg/dL Normal 8.5-10.5 [facility] Comment on above: Order Comment: Campu s: M Result Comment: NOTE NEW NORMAL RANGE DUE TO REAGENT CHANGE Performed By: #### L 500.24615, L500.54257, L500.47882, L500.72743 ####[facility] EZGJSMEKJU7758 [place], [place] [address]Aj# [phone] Chloride [Moles/Vol] 105 mmol/L Normal 98-107 [facility] Comment on above: Order Comment: Campu s: M Performed By: #### L 500.36373, L500.44721, L500.52296, L500.92726 ####[facility] KTKJQTOFMP4539 [place], [place] [address]Yg# [phone] CO2 [Moles/Vol] 16.0 mmol/L Low 21-32 [facility] Comment on above: Order Comment: Campu s: M Performed By: #### L 500.88145, L500.30442, L500.76378, L500.44570 ####[facility] MUGDTFITCV1367 [place], [place] [address]Nc# [phone] Creatinine [Mass/Vol] 0.63 mg/dL Normal 0.510-0.950 [facility] Comment on above: Order Comment: Campu s: M Result Comment: Cleopatra ents receiving either N-Acetylcysteine (NAC) orMetamizole prior to venipuncture, may have falsely depressedresults. Performed By: #### L 500.94497, L500.13796, L500.82729, L500.48761 ####[facility] UKQMPTFXFG3983 [place], [place] [address]Po# [phone] Glucose [Mass/Vol] 422 mg/dL High 70-100 [facility] Comment on above: Order Comment: Campu s: M Result Comment: 70-1 00- Normal Fasting; 100-125 Impaired Fasting; greaterthan 126 on more than one result- Diabetes. ADA guidelines.Results may be falsely elevated after the administration ofSulfapyridine.Results may be falsely depressed after the administration ofSulfasalazine. Performed By: #### L 500.50886, L500.93077, L500.08368, L500.61968 ####[facility] HCPMLPNLVJ1964 [place], [place] [address]Ox# [phone] Potassium [Moles/Vol] 4.4 mmol/L Normal 3.5-5.1 [facility] Comment on above: Order Comment: Campu s: M Result Comment: Slig ht Hemolysis, Result may be affected. Performed By: #### L 500.29062, L500.83671, L500.95187, L500.84359 ####[facility] CPTKXMSCAI8686 [place], [place] [address]Pm# [phone] Sodium [Moles/Vol] 137 mmol/L Normal 136-145 [facility] Comment on above: Order Comment: Campu s: M Performed By: #### L 500.39509, L500.26320, L500.78535, L500.55205 ####[facility] VKUEBDFXWT2531 [place], [place] [address]Fz# [phone] Urea nitrogen [Mass/Vol] 17 mg/dL Normal 7-26 [facility] Comment on above: Order Comment: Campu s: M Performed By: #### L 500.37643, L500.65060, L500.27571, L500.79819 ####[facility] DJYODGJMLF4414 [place], [place] [address]Eg# [phone] Urea nitrogen/Creatinine [Mass ratio] 27 mg/mg High 15-24 [facility] Comment on above: Order Comment: Campu s: M Performed By: #### L 500.07763, L500.92711, L500.70763, L500.67484 ####[facility] NBXNJANSRK4348 [place], [place] [address]Ra# [phone] CBC W/DIFFon 05-31-2021 BASO ABS 0.00 K/CU MM Normal 0-0.2 [facility] Comment on above: Order Comment: Campu s: M Performed By: #### L 200.14091 ####[facility] QVEAIRFKZW8080 [place], [place] [address]Op# [phone] Basophils/100 WBC (Bld) 0.2 % Normal 0-2 [facility] Comment on above: Order Comment: Campu s: M Performed By: #### L 200.35829 ####[facility] WILXADXTSU[address] [place] [address]Tv# [phone] EOS ABS 0.00 K/CU MM Normal 0-0.5 [facility] Comment on above: Order Comment: Campu s: M Performed By: #### L 200.75868 ####[place] [address]Ph# [phone] Eosinophils/100 WBC (Bld) 0.0 % Normal 0-5 [facility] Comment on above: Order Comment: Campu s: M Performed By: #### L 200.74888 ####[place] [address]Ph# [phone] Erythrocyte distribution width (RBC) [Ratio] 14.1 % Normal 11-14.5 [facility] Comment on above: Order Comment: Campu s: M Performed By: #### L 200.12789 ####[address] [address]Dw# [phone] Hematocrit (Bld) [Volume fraction] 39.5 % Normal 35.0-47.0 [facility] Comment on above: Order Comment: Campu s: M Performed By: #### L 200.20436 ####[facility] CLBEZTFGQX[address] [place], [place] [address]Ph# [phone] Hemoglobin (Bld) [Mass/Vol] 13.1 g/dL Normal 11.5-15.5 [facility] Comment on above: Order Comment: Campu s: M Performed By: #### L 200.57349 ####[facility] LDEMSMGKZR9[address] [place], [place] [address]Ph# [phone] IMMATR GRAN ABS 0.20 K/CU MM Normal Less than 2 [facility] Comment on above: Order Comment: Campu s: M Performed By: #### L 200.06840 ####[facility] RVYVINVVZT722[address] [place], [place] [address]Ph# [phone] IMMATURE GRAN % 0.8 % Normal Less than 2 [facility] Comment on above: Order Comment: Campu s: M Performed By: #### L 200.41766 ####[address]# [phone] LYMPH ABS 1.10 K/CU MM Normal 0.9-4.4 [facility] Comment on above: Order Comment: Campu s: M Performed By: #### L 200.10988 ####[place] [address]Ph# [phone] Lymphocytes/100 WBC (Bld) 4.7 % Low 20-40 [facility] Comment on above: Order Comment: Campu s: M Performed By: #### L 200.12911 ####[place] [address]Ph# [phone] MCHC (RBC) [Mass/Vol] 33.2 g/dL Normal 32.0-36.0 [facility] Comment on above: Order Comment: Campu s: M Performed By: #### L 200.92256 ####[place] [address]Ph# [phone] MCV (RBC) [Entitic vol] 84.9 fL Normal 80.0-99.0 [facility] Comment on above: Order Comment: Campu s: M Performed By: #### L 200.36746 ####[facility] [id number] [place], [place] [address]Ph# [phone] MONO ABS 0.40 K/CU MM Normal 0.1-1.1 [facility] Comment on above: Order Comment: Campu s: M Performed By: #### L 200.64068 ####[facility] NWFCKYPTEX6360 [place], [place] [address]Lu# [phone] Monocytes/100 WBC (Bld) 1.8 % Low 2-10 [facility] Comment on above: Order Comment: Campu s: M Performed By: #### L 200.11974 ####[facility] AAVTHRWDCC[address] [place] [address]Xl# [phone] NEUTROPHIL ABS 20.90 K/CU MM High 2.0-8.3 [facility] Comment on above: Order Comment: Campu s: M Performed By: #### L 200.96487 ####[facility] [id number] [place], [place] [address]Ph# [phone] Neutrophils/100 WBC (Bld) 92.5 % High 45-75 [facility] Comment on above: Order Comment: Campu s: M Performed By: #### L 200.37901 ####[facility] YDXMCRHXMY[address] [place], [place] [address]Ph# [phone] Nucleated RBC/100 WBC (Bld) [Ratio] 0.0 % Normal Less than 1 [facility] Comment on above: Order Comment: Campu s: M Performed By: #### L 200.64287 ####[facility] SSPGGZVCPQ316[address] [place] [address]Bl# [phone] Platelet mean volume (Bld) [Entitic vol] 12.4 fL Normal 9.4-12.4 [facility] Comment on above: Order Comment: Campu s: M Performed By: #### L 200.78160 ####[facility] SUTQKPVMFL[address] [place] [address]Qw# [phone] PLT 211 K/CU MM Normal 150-450 [facility] Comment on above: Order Comment: Campu s: M Performed By: #### L 200.54571 ####[facility] WMQYXOUDVS834[address] [place] [address]Bj# [phone] RBC 4.65 M/CU MM Normal 3.90-5.30 [facility] Comment on above: Order Comment: Campu s: M Performed By: #### L 200.75916 ####[facility] YAREKEFGHW9566 [place], [place] [address]Is# [phone] WBC 22.6 K/CUMM High 4.5-11.0 [facility] Comment on above: Order Comment: Campu s: M Performed By: #### L 200.55186 ####[facility] PZTCIYAVIW6057 [place], [place] [address]Ag# [phone] CT ABD/PEL W IV CONTRAST ONL Yon 05-31-2021 CT ABD/PEL W IV CONTRAST ONLY Normal [facility] GFR ESTon 05-31-2021 IF AMER Greater than 60 Normal [facility] Comment on above: Order Comment: Campu s: M Performed By: #### L 500.55343, L500.42613, L500.53514, L500.76686 ####[facility] PMMBZAYPPD3170 [place], [place] [address]Jx# [phone] IF non-AFR AMER Greater than 60 Normal [facility] Comment on above: Order Comment: Campu s: M Performed By: #### L 500.33621, L500.78001, L500.96482, L500.68367 ####[facility] GJTFYTUORQ2912 [place], [place] [address]Id# [phone] GLUCOSE METERon 05-31-2021 Glucose [Mass/Vol] 405 mg/dL High 70-115 [facility] LACTATE BLOODon 05-31-2021 LACTATE BLOOD 3.32 MMOL/L High 0.40-2.00 [facility] Comment on above: Order Comment: Campu s: M Performed By: #### L 550.26331 ####[facility] DHUOQJTWKH7902 [place], [place] [address]Fx# [phone] LIPASEon 05-31-2021 Lipase [Catalytic activity/Vol] 18 U/L Normal 12-60 [facility] Comment on above: Order Comment: Campu s: M Result Comment: NOTE NEW NORMAL RANGE DUE TO REAGENT CHANGE Performed By: #### L 500.17669, L500.62728, L500.65076, L500.31534 ####[facility] FRXJBGSJGP1793 [place], [place] [address]At# [phone] LIVERon 05-31-2021 Albumin [Mass/Vol] 4.3 g/dL Normal 3.2-5.0 [facility] Comment on above: Order Comment: Campu s: M Performed By: #### L 500.48753, L500.33822, L500.90115, L500.66757 ####[facility] KGZQLRSDCQ4098 [place], [place] [address]Zg# [phone] Albumin/Globulin [Mass ratio] 1.4 {ratio} Normal 0.8-2.0 [facility] Comment on above: Order Comment: Campu s: M Performed By: #### L 500.11879, L500.63611, L500.69997, L500.88554 ####[facility] NNEOTGEBKX3909 [place], [place] [address]Ve# [phone] ALK PHOS 89 U/L Normal 45-117 [facility] Comment on above: Order Comment: Campu s: M Performed By: #### L 500.86504, L500.59815, L500.23075, L500.55419 ####[facility] SYMANLKNTT2484 [place], [place] [address]Rn# [phone] ALT [Catalytic activity/Vol] 11 U/L Low 13-61 [facility] Comment on above: Order Comment: Campu s: M Result Comment: RESU LTS MAY BE FALSELY DEPRESSED AFTER THE ADMINISTRATION OFSULFASALAZINE AND/OR SULFAPYRIDINE. Performed By: #### L 500.28242, L500.04020, L500.68482, L500.49586 ####[facility] DAQERPGDNW4454 [place], [place] [address]Yf# [phone] AST [Catalytic activity/Vol] 16 U/L Normal 8-34 [facility] Comment on above: Order Comment: Campu s: M Result Comment: RESU LTS MAY BE FALSELY DEPRESSED AFTER THE ADMINISTRATION OFSULFASALAZINE AND/OR SULFAPYRIDINE. Performed By: #### L 500.34738, L500.47868, L500.27317, L500.80388 ####[facility] HEZUMNBAYY7003 [place], [place] [address]Ir# [phone] BILI DIRECT 0.3 MG/DL Normal 0.00-0.36 [facility] Comment on above: Order Comment: Campu s: M Result Comment: NOTE NEW NORMAL RANGE DUE TO REAGENT CHANGE Performed By: #### L 500.68685, L500.92068, L500.67230, L500.98739 ####[facility] DAWMLOHMXE7791 [place], [place] [address]Ay# [phone] BILI TOTAL 1.00 MG/DL Normal 0.2-1.0 [facility] Comment on above: Order Comment: Campu s: M Performed By: #### L 500.52784, L500.60851, L500.97988, L500.47346 ####[facility] TNVMQCFTOH3622 [place], [place] [address]Gm# [phone] Globulin (S) [Mass/Vol] 3.0 g/dL Normal 2.2-4.2 [facility] Comment on above: Order Comment: Campu s: M Performed By: #### L 500.30658, L500.66467, L500.79480, L500.15298 ####[facility] YPVFPBXJOT3087 [place], [place] [address]Kx# [phone] Protein [Mass/Vol] 7.3 g/dL Normal 6.0-8.5 [facility] Comment on above: Order Comment: Campu s: M Performed By: #### L 500.69869, L500.01665, L500.33242, L500.68748 ####[facility] BGITRIJFQO0230 [place], [place] [address]Pl# [phone] PORTABLE CHESTon 05-31-2021 PORTABLE CHEST Normal [facility] [id number] 05-31-2021 SARS-CoV-2 (COVID-19) RNA DANIEL+probe Ql (Unsp spec) Negative Invalid Interpretation Code Negative [facility] Comment on above: Order Comment: Campu s: M Result Comment: RESU LTS CALLED TO MillicentSathish ZINA, UA/EDAT 205305/31/21 BY JHOANA PALMERNegative results do not preclude SARS-CoV-2 infection andshould not be used as the sole basis for treatment or otherpatient management decisions. Negative results must becombined with clinical observation, patient history, andepidemiological information.This test was performed by PCR. Performed By: #### L 770.62982 ####[facility] LANDXTYGLA8843 [place], [place] [address]Ip# [phone] UA COMPLETEon 05-31-2021 Color (U) Straw Normal [facility] Comment on above: Order Comment: Campu s: M Performed By: #### L 600.83222 ####[facility] BXFOGRISCE85[address] [place] [address]Ez# [phone] Glucose (U) [Mass/Vol] 500 mg/dL Normal NORMAL [facility] Comment on above: Order Comment: Campu s: M Performed By: #### L 600.90191 ####[facility] XBWIHNFVYO7143 [place], [place] [address]Lu# [phone] UA APPEARANCE Clear Normal CLEAR [facility] Comment on above: Order Comment: Campu s: M Performed By: #### L 600.99395 ####[facility] DZEJHUKCHX5799 [place], [place] [address]Aw# [phone] UA BILIRUBIN Negative Normal NEGATIVE [facility] Comment on above: Order Comment: Campu s: M Performed By: #### L 600.37076 ####[facility] ABQBUGTONI3033 [place], [place] [address]Fi# [phone] UA BLOOD Negative Normal NEGATIVE [facility] Comment on above: Order Comment: Campu s: M Performed By: #### L 600.56923 ####[facility] IZGXHSBVHS4659 [place], [place] [address]Uw# [phone] UA KETONE 80 Normal NEGATIVE [facility] Comment on above: Order Comment: Campu s: M Performed By: #### L 600.67833 ####[facility] OBOZAEFZVF5342 [place], [place] [address]Ib# [phone] UA LK ESTERASE Negative Normal NEGATIVE [facility] Comment on above: Order Comment: Campu s: M Performed By: #### L 600.76753 ####[facility] SOGABUROXL[address] [place] [address]Za# [phone] UA NITRITE Negative Normal NEGATIVE [facility] Comment on above: Order Comment: Campu s: M Performed By: #### L 600.65445 ####[facility] ULDPXVWDGD994[address] [place] [address]Wc# [phone] UA PH 6.0 Normal 5-6 [facility] Comment on above: Order Comment: Campu s: M Performed By: #### L 600.05597 ####[facility] GSEGZSUSJK328[address] [place] [address]Ns# [phone] UA PROTEIN Negative Normal NEGATIVE [facility] Comment on above: Order Comment: Campu s: M Performed By: #### L 600.16309 ####[facility] UIMYGCDXAJ784[address] [place] [address]Zm# [phone] UA SPEC GRAV 1.030 Normal 1.005-1.030 [facility] Comment on above: Order Comment: Campu s: M Performed By: #### L 600.15077 ####[facility] QQKIDVDXEP578[address] [place] [address]Bq# [phone] UA UROBILINOGEN Negative Normal NORMAL [facility] Comment on above: Order Comment: Campu s: M Performed By: #### L 600.39909 ####[facility] RVRHQSOVNQ821[address] [place] [address]Uv# [phone] BMPon 04-15-2021 Anion gap [Moles/Vol] 14 mmol/L Normal 5-16 [facility] Comment on above: Order Comment: Campu s: M Performed By: #### L 500.77051, L500.23242, L500.36573, L500.84359 ####[facility] APVOZOLETC9343 [place], [place] [address]Jk# [phone] Calcium [Mass/Vol] 9.9 mg/dL Normal 8.5-10.5 [facility] Comment on above: Order Comment: Campu s: M Result Comment: NOTE NEW NORMAL RANGE DUE TO REAGENT CHANGE Performed By: #### L 500.06665, L500.93822, L500.90699, L500.72411 ####[facility] KGEYIKKVUD2322 [place], [place] [address]Gt# [phone] Chloride [Moles/Vol] 96 mmol/L Low 98-107 [facility] Comment on above: Order Comment: Campu s: M Performed By: #### L 500.57964, L500.34603, L500.80635, L500.79669 ####[facility] PSVTJTSPGO6794 [place], [place] [address]Hw# [phone] CO2 [Moles/Vol] 22.0 mmol/L Normal 21-32 [facility] Comment on above: Order Comment: Campu s: M Performed By: #### L 500.58875, L500.67447, L500.64073, L500.82601 ####[facility] NDKALFKZTP0724 [place], [place] [address]Nb# [phone] Creatinine [Mass/Vol] 0.68 mg/dL Normal 0.510-0.950 [facility] Comment on above: Order Comment: Campu s: M Result Comment: Cleopatra ents receiving either N-Acetylcysteine (NAC) orMetamizole prior to venipuncture, may have falsely depressedresults. Performed By: #### L 500.33733, L500.78770, L500.00659, L500.44868 ####[facility] BMSYFCNNSL1306 [place], [place] [address]Ll# [phone] Glucose [Mass/Vol] 306 mg/dL High 70-100 [facility] Comment on above: Order Comment: Campu s: M Result Comment: 70-1 00- Normal Fasting; 100-125 Impaired Fasting; greaterthan 126 on more than one result- Diabetes. ADA guidelines.Results may be falsely elevated after the administration ofSulfapyridine.Results may be falsely depressed after the administration ofSulfasalazine. Performed By: #### L 500.81521, L500.88013, L500.30302, L500.14021 ####[facility] ZYDMXTPIWI2523 [place], [place] [address]Dz# [phone] Potassium [Moles/Vol] 3.3 mmol/L Low 3.5-5.1 [facility] Comment on above: Order Comment: Campu s: M Performed By: #### L 500.96467, L500.77099, L500.53633, L500.39541 ####[facility] XQFVXMKHJW3293 [place], [place] [address]Rp# [phone] Sodium [Moles/Vol] 133 mmol/L Low 136-145 [facility] Comment on above: Order Comment: Campu s: M Performed By: #### L 500.90237, L500.50318, L500.40406, L500.40729 ####[facility] TANTLJIQZO044[address] [place] [address]Za# [phone] Urea nitrogen [Mass/Vol] 21 mg/dL Normal 7-26 [facility] Comment on above: Order Comment: Campu s: M Performed By: #### L 500.39177, L500.33216, L500.25312, L500.64455 ####[facility] LKWEUIBAPF4824 [place], [place] [address]Js# [phone] Urea nitrogen/Creatinine [Mass ratio] 31 mg/mg High 15-24 [facility] Comment on above: Order Comment: Campu s: M Performed By: #### L 500.45574, L500.45044, L500.66446, L500.83766 ####[facility] FMNAJTXKMV1943 [place], [place] [address]Oy# [phone] Stacie 04-15-2021 EMERGENCY PHYSICIAN REPORT This is a preliminary report only, as the practitioner review and authentication has not occurred. Normal [facility] ER Normal [facility] EMERGENCY PHYSICIAN REPORT This is a preliminary report only, as the practitioner review and authentication has not occurred. Normal [facility] ER Normal [facility] ESTon 04-15-2021 IF AMER Greater than 60 [facility] Comment on above: Order Comment: Campu s: M Performed By: #### L 500.50335, L500.57138, L500.03166, L500.76759 ####[facility] XAXVWRHVEB5065 [place], [place] [address]Op# [phone] IF non-AFR AMER Greater than 60 [facility] Comment on above: Order Comment: Campu s: M Performed By: #### L 500.55627, L500.11896, L500.45075, L500.88874 ####[facility] BHBSJLKJWS4460 [place], [place] [address]Tm# [phone] GLUCOSE METERon 04-15-2021 Glucose [Mass/Vol] 305 mg/dL High 70-115 [facility] Glucose [Mass/Vol] 197 mg/dL High 70-115 [facility] LACTATE BLOODon 04-15-2021 LACTATE BLOOD 2.16 MMOL/L High 0.40-2.00 [facility] Comment on above: Order Comment: Campu s: M Performed By: #### L 550.87056 ####[facility] MXVTMGQSBP0034 [place], [place] [address]Fl# [phone] LIPASEon 04-15-2021 Lipase [Catalytic activity/Vol] 19 U/L Normal 12-60 [facility] Comment on above: Order Comment: Campu s: M Result Comment: NOTE NEW NORMAL RANGE DUE TO REAGENT CHANGE Performed By: #### L 500.66335, L500.23481, L500.39947, L500.27576 ####[facility] HMVUFFXUWO8732 [place], [place] [address]Zk# [phone] LIVERon 04-15-2021 Albumin [Mass/Vol] 4.2 g/dL Normal 3.2-5.0 [facility] Comment on above: Order Comment: Campu s: M Performed By: #### L 500.63980, L500.83572, L500.78776, L500.03348 ####[facility] NGUSRSOLIF3855 [place], [place] [address]Wf# [phone] Albumin/Globulin [Mass ratio] 1.3 {ratio} Normal 0.8-2.0 [facility] Comment on above: Order Comment: Campu s: M Performed By: #### L 500.70818, L500.36500, L500.61251, L500.71472 ####[facility] QGSWYFEMIU6521 [place], [place] [address]Fr# [phone] ALK PHOS 102 U/L Normal 45-117 [facility] Comment on above: Order Comment: Campu s: M Performed By: #### L 500.04976, L500.15152, L500.81199, L500.31238 ####[facility] NRNHIDZJEJ3814 [place], [place] [address]Cj# [phone] ALT [Catalytic activity/Vol] 11 U/L Low 13-61 [facility] Comment on above: Order Comment: Campu s: M Result Comment: RESU LTS MAY BE FALSELY DEPRESSED AFTER THE ADMINISTRATION OFSULFASALAZINE AND/OR SULFAPYRIDINE. Performed By: #### L 500.17340, L500.77657, L500.47722, L500.81548 ####[facility] XODYXDBGYA5159 [place], [place] [address]Kf# [phone] AST [Catalytic activity/Vol] 13 U/L Normal 8-34 [facility] Comment on above: Order Comment: Campu s: M Result Comment: RESU LTS MAY BE FALSELY DEPRESSED AFTER THE ADMINISTRATION OFSULFASALAZINE AND/OR SULFAPYRIDINE. Performed By: #### L 500.91815, L500.13205, L500.64828, L500.29691 ####[facility] OVSCPZAXMV6517 [place], [place] [address]Zg# [phone] BILI DIRECT 0.3 MG/DL Normal 0.00-0.36 [facility] Comment on above: Order Comment: Campu s: M Result Comment: NOTE NEW NORMAL RANGE DUE TO REAGENT CHANGE Performed By: #### L 500.36311, L500.56467, L500.78099, L500.79320 ####[facility] TDXYPAOOLX7452 [place], [place] [address]Ng# [phone] BILI TOTAL 1.10 MG/DL High 0.2-1.0 [facility] Comment on above: Order Comment: Campu s: M Performed By: #### L 500.03314, L500.99128, L500.18944, L500.14736 ####[facility] EKHCKFJFHL2889 [place], [place] [address]Uo# [phone] Globulin (S) [Mass/Vol] 3.3 g/dL Normal 2.2-4.2 [facility] Comment on above: Order Comment: Campu s: M Performed By: #### L 500.91703, L500.15814, L500.02587, L500.03178 ####[facility] [id number] [place], [place] [address]Jn# [phone] Protein [Mass/Vol] 7.5 g/dL Normal 6.0-8.5 [facility] Mcdonald Comment on above: Order Comment: Campu s: M Performed By: #### L 500.01639, L500.32243, L500.93966, L500.28722 ####[facility] [id number] [place], [place] [address]Fe# [phone] UA COMPLETEon 04-15-2021 Color (U) Yellow Normal [facility] Mcdonald Comment on above: Order Comment: Campu s: M Performed By: #### L 600.63001 ####[facility] [id number] [place] [address]On# [phone] Glucose (U) [Mass/Vol] 500 mg/dL Normal NORMAL [facility] Mcdonald Comment on above: Order Comment: Campu s: M Performed By: #### L 600.11139 ####[facility] [place] [id number] [place] [address] 460[address]Oy# [phone] Mucus Ql (Urine sed) TRACE Normal NEGATIVE [facility] Comment on above: Order Comment: Campu s: M Performed By: #### L 600.47687 ####[address] [address]Es# [phone] SQUAMOUS EPIS 2 EPI/HPF Normal 0-5 [facility] Comment on above: Order Comment: Campu s: M Performed By: #### L 600.57397 ####[address] [address]Nq# [phone] UA APPEARANCE Clear Normal CLEAR [facility] Comment on above: Order Comment: Campu s: M Performed By: #### L 600.06235 ####[address] [address]Ph# [phone] UA BACTERIA TRACE Normal NONE [facility] Comment on above: Order Comment: Campu s: M Performed By: #### L 600.97855 ####[facility] [place] [id number] [place] [address] 57034Nb# [phone] UA BILIRUBIN Negative Normal NEGATIVE [facility] Comment on above: Order Comment: Campu s: M Performed By: #### L 600.78781 ####[facility] [place] [id number] [place] [address] 39691Vr# [phone] UA BLOOD Negative Normal NEGATIVE [facility] Comment on above: Order Comment: Campu s: M Performed By: #### L 600.38345 ####[facility] [place] [id number] [place], [place] [address]Se# [phone] UA KETONE [address] [facility] Comment on above: Order Comment: Campu s: M Performed By: #### L 600.11373 ####[facility] [place] [id number] [place] [address] 31[address]Pr# [phone] UA LK ESTERASE Negative Normal NEGATIVE [facility] Comment on above: Order Comment: Campu s: M Performed By: #### L 600.55352 ####[facility] [place] [id number] [place] [address]12[address]Jj# [phone] UA NITRITE Negative Normal NEGATIVE [facility] Comment on above: Order Comment: Campu s: M Performed By: #### L 600.84911 ####[facility] [place] [id number] [place] [address] 25776Hn# [phone] UA PH 6.0 Normal 5-6 [facility] Comment on above: Order Comment: Campu s: M Performed By: #### L 600.28365 ####[facility] [place] [id number] [place] [address] 288[address]Jc# [phone] UA PROTEIN 30 Normal NEGATIVE [facility] Comment on above: Order Comment: Campu s: M Performed By: #### L 600.60582 ####[facility] [place] [id number] [place] [address] 835[address]Uo# [phone] UA RBC 1 RBC/HPF Normal 0-3 [facility] Comment on above: Order Comment: Campu s: M Performed By: #### L 600.60298 ####[facility] [place] SYCSXJCEUB[address] [place] [address] 617[address]Ap# [phone] UA SPEC GRAV 1.017 Normal 1.005-1.030 [facility] Comment on above: Order Comment: Campu s: M Performed By: #### L 600.98024 ####[facility] [place] [id number] [place] [address] 43391Yh# [phone] UA UROBILINOGEN Negative Normal NORMAL [facility] Comment on above: Order Comment: Campu s: M Performed By: #### L 600.99059 ####[facility] [place] TBUWOBKAVE1916 [place], [place] [address]Ak# [phone] UA WBC 6 WBC/HPF High 0-5 [facility] Comment on above: Order Comment: Campu s: M Performed By: #### L 600.84727 ####[facility] [place] [id number] [place] [address] 22881Ub# [phone] BMPon 03-17-2021 Anion gap [Moles/Vol] 16 mmol/L Normal 5-16 [facility] Comment on above: Order Comment: Campu s: M Performed By: #### L 500.42413, L500.02689 ####[facility] [place] CRMARRVKZD7523 [place], [place] [address]Cd# [phone] Calcium [Mass/Vol] 10.0 mg/dL Normal 8.5-10.5 [facility] Comment on above: Order Comment: Campu s: M Result Comment: NOTE NEW NORMAL RANGE DUE TO REAGENT CHANGE Performed By: #### L 500.02898, L500.04545 ####[facility] [place] [id number] [place], [place] [address]Ne# [phone] Chloride [Moles/Vol] 102 mmol/L Normal 98-107 [facility] Comment on above: Order Comment: Campu s: M Performed By: #### L 500.38292, L500.00959 ####[facility] [place] [id number] [place], [place] [address]Bi# [phone] CO2 [Moles/Vol] 16.0 mmol/L Low 21-32 [facility] Comment on above: Order Comment: Campu s: M Performed By: #### L 500.18340, L500.16334 ####[facility] [place] [id number] [place], [place] [address]Ch# [phone] Creatinine [Mass/Vol] 0.71 mg/dL Normal 0.510-0.950 [facility] Comment on above: Order Comment: Campu s: M Result Comment: Cleopatra ents receiving either N-Acetylcysteine (NAC) orMetamizole prior to venipuncture, may have falsely depressedresults. Performed By: #### L 500.48709, L500.66498 ####[facility] [place] [id number] [place], [place] [address]Ti# [phone] Glucose [Mass/Vol] 418 mg/dL High 70-100 [facility] Comment on above: Order Comment: Campu s: M Result Comment: 70-1 00- Normal Fasting; 100-125 Impaired Fasting; greaterthan 126 on more than one result- Diabetes. ADA guidelines.Results may be falsely elevated after the administration ofSulfapyridine.Results may be falsely depressed after the administration ofSulfasalazine. Performed By: #### L 500.05893, L500.89868 ####[facility] [place] XJVJRHVXYK7563 [place], [place] [address]Da# [phone] Potassium [Moles/Vol] 4.2 mmol/L Normal 3.5-5.1 [facility] Comment on above: Order Comment: Campu s: M Result Comment: Slig ht Hemolysis, Result may be affected. Performed By: #### L 500.47293, L500.83283 ####[facility] [place] [id number] [place], [place] [address]Xi# [phone] Sodium [Moles/Vol] 134 mmol/L Low 136-145 [facility] Comment on above: Order Comment: Campu s: M Performed By: #### L 500.49889, L500.73810 ####[facility] [place] [id number] [place], [place] [address]De# [phone] Urea nitrogen [Mass/Vol] 25 mg/dL Normal 7-26 [facility] Comment on above: Order Comment: Campu s: M Performed By: #### L 500.82107, L500.00183 ####[facility] [place] WOLCXAYTRL6315 [place], [place] [address]Rf# [phone] Urea nitrogen/Creatinine [Mass ratio] 35 mg/mg High 15-24 [facility] Comment on above: Order Comment: Campu s: M Performed By: #### L 500.28202, L500.27733 ####[facility] [place] [id number] [place] [address] 427[address]Rq# [phone] CBC W/DIFFon 03-17-2021 BASO ABS 0.00 K/CU MM Normal 0-0.2 [facility] Comment on above: Order Comment: Campu s: M Performed By: #### L 200.63826 ####[facility] [place] [id number] [place] [address] 18[address]Gm# [phone] Basophils/100 WBC (Bld) 0.1 % Normal 0-2 [facility] Comment on above: Order Comment: Campu s: M Performed By: #### L 200.19887 ####[address] [address]Kt# [phone] EOS ABS 0.00 K/CU MM Normal 0-0.5 [facility] Comment on above: Order Comment: Campu s: M Performed By: #### L 200.39427 ####[facility] [place] OZHYCHILIB[address] [place] [address] 847[address]Zw# [phone] Eosinophils/100 WBC (Bld) 0.0 % Normal 0-5 [facility] Comment on above: Order Comment: Campu s: M Performed By: #### L 200.16252 ####[facility] [place] [id number] [place] [address] 19[address]Ag# [phone] Erythrocyte distribution width (RBC) [Ratio] 14.6 % High 11-14.5 [facility] Comment on above: Order Comment: Campu s: M Performed By: #### L 200.62061 ####[facility] [place] [id number] [place] [address] 75[address]Fz# [phone] Hematocrit (Bld) [Volume fraction] 37.2 % Normal 35.0-47.0 [facility] Comment on above: Order Comment: Campu s: M Performed By: #### L 200.37105 ####[facility] [place] HLOILSUBFR2422 [place], [place] [address]Jz# [phone] Hemoglobin (Bld) [Mass/Vol] 12.4 g/dL Normal 11.5-15.5 [facility] Comment on above: Order Comment: Campu s: M Performed By: #### L 200.20685 ####[place] 3004208Ph# [phone] IMMATR GRAN ABS 0.10 K/CU MM Normal Less than 2 [facility] Comment on above: Order Comment: Campu s: M Performed By: #### L 200.25557 ####[place] 3004208Ph# [phone] IMMATURE GRAN % 0.8 % Normal Less than 2 [facility] Comment on above: Order Comment: Campu s: M Performed By: #### L 200.62828 ####[place] 3004208Ph# [phone] LYMPH ABS 0.80 K/CU MM Low 0.9-4.4 [facility] Comment on above: Order Comment: Campu s: M Performed By: #### L 200.54068 ####[place] 3004208Ph# [phone] Lymphocytes/100 WBC (Bld) 4.5 % Low 20-40 [facility] Comment on above: Order Comment: Campu s: M Performed By: #### L 200.62562 ####[facility] [place] [id number] [place], [place] [address]255[address]Ph# [phone] MCHC (RBC) [Mass/Vol] 33.3 g/dL Normal 32.0-36.0 [facility] Comment on above: Order Comment: Campu s: M Performed By: #### L 200.58464 ####[facility] [place] [id number] [place], [place] [address]255[address]Ph# [phone] MCV (RBC) [Entitic vol] 83.2 fL Normal 80.0-99.0 [facility] Comment on above: Order Comment: Campu s: M Performed By: #### L 200.06043 ####[facility] [place] [id number] [place], [place] [address]Dp# [phone] MONO ABS 0.30 K/CU MM Normal 0.1-1.1 [facility] Comment on above: Order Comment: Campu s: M Performed By: #### L 200.65912 ####[facility] [place] [id number] [place], [place] [address]Ph# [phone] Monocytes/100 WBC (Bld) 1.7 % Low 2-10 [facility] Comment on above: Order Comment: Campu s: M Performed By: #### L 200.97624 ####[address] [address]Om# [phone] NEUTROPHIL ABS 16.70 K/CU MM High 2.0-8.3 [facility] Comment on above: Order Comment: Campu s: M Performed By: #### L 200.65190 ####[facility] [place] [id number] [place], [place] [address]Ph# [phone] Neutrophils/100 WBC (Bld) 92.9 % High 45-75 [facility] Comment on above: Order Comment: Campu s: M Performed By: #### L 200.85260 ####[facility] [place] OZXLOZHAXT[address] [place], [place] [address]Ph# [phone] Nucleated RBC/100 WBC (Bld) [Ratio] 0.0 % Normal Less than 1 [facility] Comment on above: Order Comment: Campu s: M Performed By: #### L 200.45356 ####[facility] [place] [id number] [place] [address] 13546Md# [phone] Platelet mean volume (Bld) [Entitic vol] 12.9 fL High 9.4-12.4 [facility] Comment on above: Order Comment: Campu s: M Performed By: #### L 200.99564 ####[facility] [place] TGVHVAPBZO9687 [place], [place] [address]Cw# [phone] PLT 181 K/CU MM Normal 150-450 [facility] Comment on above: Order Comment: Campu s: M Performed By: #### L 200.98875 ####[facility] [place] XRYAVZRSMO7051 [place], [place] [address]Kx# [phone] RBC 4.47 M/CU MM Normal 3.90-5.30 [facility] Comment on above: Order Comment: Campu s: M Performed By: #### L 200.59597 ####[facility] [place] [id number] [place], [place] [address]Pj# [phone] WBC 17.9 K/CUMM High 4.5-11.0 [facility] Comment on above: Order Comment: Campu s: M Performed By: #### L 200.11494 ####[facility] [place] VPVMHCBKPK7364 [place], [place] [address]Bl# [phone] Stacie 03-17-2021 EMERGENCY PHYSICIAN REPORT This is a preliminary report only, as the practitioner review and authentication has not occurred. [facility] EMERGENCY PHYSICIAN REPORT This is a preliminary report only, as the practitioner review and authentication has not occurred. [facility] GFR ESTon 03-17-2021 IF AMER Greater than 60 [facility] Comment on above: Order Comment: Campu s: M Performed By: #### L 500.76611, L500.60784 ####[facility] [place] LYXOMHTYRC5654 [place], [place] [address]Up# [phone] IF non-AFR AMER Greater than 60 [facility] Comment on above: Order Comment: Campu s: M Performed By: #### L 500.99152, L500.12821 ####[facility] [place] HCVENAQZFE7791 [place], [place] [address]Lt# [phone] GLUCOSE METERon 03-17-2021 Glucose [Mass/Vol] 333 mg/dL High 70-115 [facility] Glucose [Mass/Vol] 360 mg/dL High 70-115 [facility] VBG PHon 03-17-2021 VBG PH 7.40 MMHG Normal 7.31-7.41 [facility] Comment on above: Order Comment: Zach s: M Performed By: #### L 100.00159 ####[facility] [place] [id number] [place], [place] [address]Ar# [phone] A1C Hgbon 02-24-2017 Hemoglobin A1c/Hemoglobin.total mass fraction (Bld) 10.8 % High 4.0-6.0 [facility] Comment on above: Performed By: #### G FR ####[facility], [address] [place] [address] Basic Metabolic Panelon 01-28 BUN/Creatinine Ratio 21.4 mg/mg Normal 10.0-22.0 [facility] Comment on above: Order Comment: CBN Performed By: #### G FR ####[facility], [address] [place] [address] 11372 Creatinine 0.56 mg/dL Normal 0.50-1.20 [facility] Comment on above: Order Comment: CBN Performed By: #### G FR ####[address] [address] Calcium 7.8 mg/dL Low 8.4-10.1 [facility] Comment on above: Order Comment: CBN Performed By: #### G FR ####[facility], [facility] [address] [place] [address] Chloride 107 mmol/L Normal 98-110 [facility] Comment on above: Order Comment: CBN Performed By: #### G FR ####[facility], [facility] [address] [place] [address] 51029 Electrolyte Balance 10.0 mEq/L Normal 4.0-15.0 [facility] Comment on above: Order Comment: CBN Performed By: #### G FR ####[facility], [address] [place] [address] 78873 Sodium 138 mmol/L Normal 136-145 [facility] Comment on above: Order Comment: CBN Performed By: #### G FR ####[facility], [address] [place] [address] 97877 Glucose mass conc 289 mg/dL High 70-110 [facility] Comment on above: Order Comment: CBN Performed By: #### G FR ####[facility], [address] [place] [address] 01113 CO2 21 mmol/L Low 22-32 [facility] Comment on above: Order Comment: CBN Performed By: #### G FR ####[facility], [address] [place] [address] 99919 Urea nitrogen 12.0 mg/dL Normal 8.0-22.0 [facility] Comment on above: Order Comment: CBN Performed By: #### G FR ####[facility], [address] [place] [address] 08792 Potassium molar conc 3.7 mmol/L Normal 3.5-5.0 [facility] Comment on above: Order Comment: CBN Performed By: #### G FR ####[facility], [address] [place] [address] 97456 CBCon 02-24-2017 Basophils/100 WBC Auto (Bld) 0.4 % Normal 0.0-2.5 [facility] Comment on above: Order Comment: CBN Performed By: #### G FR ####[facility], [address] [place] [address] 44176 Eosinophils/100 leukocytes 1.5 % Normal 0.0-6.0 [facility] Comment on above: Order Comment: CBN Performed By: #### G FR ####[facility], [address] [place] [address] 36024 Erythrocyte distribution width Auto Ratio (RBC) 15.1 % Normal 11.5-15.5 [facility] Comment on above: Order Comment: CBN Performed By: #### G FR ####[facility], [address] [place] [address] 36026 Erythrocytes (RBC) 4.19 10 6/mcL Normal 4.10-5.30 [facility] Comment on above: Order Comment: CBN Performed By: #### G FR ####[facility], [address] [place] [address] 72832 Hematocrit (HCT) 35.9 % Normal 34.0-46.0 [facility] Comment on above: Order Comment: CBN Performed By: #### G FR ####[facility], [address] [place] [address] 71480 Hemoglobin mass conc (Bld) 11.9 G/dL Low 12.0-16.0 [facility] Comment on above: Order Comment: CBN Performed By: #### G FR ####[address] [address] Lymphocytes/100 leukocytes 36.7 % Normal 20.0-40.0 [facility] Comment on above: Order Comment: CBN Performed By: #### G FR ####[facility], [address] [place] [address] 18796 MCH 28.5 pg Normal 27.0-33.0 [facility] Comment on above: Order Comment: CBN Performed By: #### G FR ####[facility], [address] [place] [address] 16090 MCHC mass conc (RBC) 33.2 G/dL Normal 32.0-36.0 [facility] Comment on above: Order Comment: CBN Performed By: #### G FR ####[address] [address] MCV 85.8 fL Normal 80.0-99.0 [facility] Comment on above: Order Comment: CBN Performed By: #### G FR ####[address] [address] Monocytes/100 leukocytes 4.9 % Normal 2.0-13.0 [facility] Comment on above: Order Comment: CBN Performed By: #### G FR ####[facility], [address] [place] [address] 87493 Neutrophils 4.40 10 3/mcL Normal 1.90-7.90 [facility] Comment on above: Order Comment: CBN Performed By: #### G FR ####[facility], [address] [place] [address] 31714 Neutrophils/100 WBC Auto (Bld) 56.5 % Normal 50.0-75.0 [facility] Comment on above: Order Comment: CBN Performed By: #### G FR ####[address] [address] Platelet mean volume (PMV) 8.0 fL Normal 6.6-10.5 [facility] Comment on above: Order Comment: CBN Performed By: #### G FR ####[address] [address] Platelets 301 10 3/mcL Normal 150-450 [facility] Comment on above: Order Comment: CBN Performed By: #### G FR ####[address] [address] WBC (Leukocytes) 7.70 10 3/mcL Normal 4.50-10.80 [facility] Comment on above: Order Comment: CBN Performed By: #### G FR ####[address] [address] Depart Summaryon 02-24-2017 Depart Summary Normal [facility] Discharge Note-Physicianon 0 02-24-2017 Discharge Note-Physician Normal [facility] Glomerular Filtration Rate E stimateon 02-24-2017 eGFR (non-black) mL/min/{1.73_m2} Normal [facility] Comment on above: Order Comment: CBN Result Comment: Davidson kowalski mean GFR = 116 mL/min/1.73 sq.m. for ages 20-29 years. Chronic Kidney Disease: Less than 60 mL/min/1.73 square metersEnd Stage Renal Disease: Less than 15 mL/min/1.73 square meters Performed By: #### G FR ####[facility], [address] [place], [place] [address] History and Physicalon 02-24 History and Physical Normal [facility] Inpatient Patient Summaryon 02-24-2017 Inpatient Patient Summary Normal [facility] Troponin Ion 02-24-2017 Troponin I.cardiac mass conc ng/mL Normal 0.000-0.040 [facility] Comment on above: Result Comment: Trop onin I reference ranges (05/05/14): 0.00-0.040 ng/mL Negative and non-diagnostic. >0.040 ng/mL Consistent with cardiac damage, increased clinical risk and possibility of myocardial infarction. Serial measurements, a rise & fall in test results, clinical history, appropriate symptoms and/or ECG changes may help assess possibility of MA. *Other non-acute coronary syndrome conditions such as CHF, myocarditis, pulmonary emboli, sepsis and cardiac surgery could result in myocardial damage and increased troponin levels. NOTE: This is a new and more precise Troponin assay started 05-05-14 Performed By: #### C BC ####[place] [id number] B-Hydroxybutyrateon 02-24-20 17 B-Hydroxybutyrate 51.30 mg/dL High 0.20-2.81 [facility] Comment on above: Performed By: #### C BC ####[place] [id number] Basic Metabolic Panelon 01-27 BUN/Creatinine Ratio 32.1 mg/mg High 10.0-22.0 [facility] Comment on above: Performed By: #### C BC ####[place] [address] Creatinine 0.53 mg/dL Normal 0.50-1.20 [facility] Comment on above: Performed By: #### C BC ####[place] [address] Calcium 8.0 mg/dL Low 8.4-10.1 [facility] Comment on above: Performed By: #### C BC ####[facility], [address] [place] [address] 78748 Chloride 109 mmol/L Normal 98-110 [facility] Comment on above: Performed By: #### C BC ####[facility], [address] [place] [address] Electrolyte Balance 15.0 mEq/L Normal 4.0-15.0 [facility] Comment on above: Performed By: #### C BC ####[facility], [address] [place] [address] 74412 Sodium 141 mmol/L Normal 136-145 [facility] Comment on above: Performed By: #### C BC ####[facility], [address] [place] [address] 82837 CO2 17 mmol/L Low 22-32 [facility] Comment on above: Performed By: #### C BC ####[facility], [address] [place] [address] 68120 Glucose mass conc 160 mg/dL High 70-110 [facility] Comment on above: Performed By: #### C BC ####[facility], [address] [place] [address] 96128 Urea nitrogen 17.0 mg/dL Normal 8.0-22.0 [facility] Comment on above: Performed By: #### C BC ####[facility], [address] [place] [address] 62335 Potassium molar conc 3.9 mmol/L Normal 3.5-5.0 [facility] Comment on above: Performed By: #### C BC ####[facility], [address] [place] [address] 46250 Calcium 7.9 mg/dL Low 8.4-10.1 [facility] Comment on above: Performed By: #### C BC ####[facility], [address] [place] [address]8410 Chloride 103 mmol/L Normal 98-110 [facility] Comment on above: Performed By: #### C BC ####[facility], [address] [place] [address] 21062 Electrolyte Balance 15.0 mEq/L Normal 4.0-15.0 [facility] Comment on above: Performed By: #### C BC ####[facility], [address] [place] [address] 31199 BUN/Creatinine Ratio 33.3 mg/mg High 10.0-22.0 [facility] Comment on above: Performed By: #### C BC ####[facility], [address] [place] [address] 38757 Creatinine 0.54 mg/dL Normal 0.50-1.20 [facility] Comment on above: Performed By: #### C BC ####[facility], [address] [place] [address] 86772 CO2 19 mmol/L Low 22-32 [facility] Comment on above: Performed By: #### C BC ####[facility], [address] [place] [address] 82699 Glucose mass conc 368 mg/dL High 70-110 [facility] Comment on above: Performed By: #### C BC ####[facility], [address] [place] [address] 68900 Urea nitrogen 18.0 mg/dL Normal 8.0-22.0 [facility] Comment on above: Performed By: #### C BC ####[facility], [address] [place] [address] 19087 Potassium molar conc 4.2 mmol/L Normal 3.5-5.0 [facility] Comment on above: Performed By: #### C BC ####[address] [address] Sodium 137 mmol/L Normal 136-145 [facility] Comment on above: Performed By: #### C BC ####[facility], [address] [place] [address] 50176 Glucose mass conc 568 mg/dL Critically high 70-110 [facility] Comment on above: Order Comment: CBN Performed By: #### B MP ####[facility], [address] [place] [address] 60406 BUN/Creatinine Ratio 27.3 mg/mg High 10.0-22.0 [facility] Comment on above: Order Comment: CBN Performed By: #### B MP ####[facility], [address] [place] [address] 55548 Creatinine 0.77 mg/dL Normal 0.50-1.20 [facility] Comment on above: Order Comment: CBN Performed By: #### B MP ####[facility], [facility] [address] [place] [address] 46736 Calcium 10.1 mg/dL Normal 8.4-10.1 [facility] Comment on above: Order Comment: CBN Performed By: #### B MP ####[facility], [address] [place] [address] 23761 CO2 21 mmol/L Low 22-32 [facility] Comment on above: Order Comment: CBN Performed By: #### B MP ####[address] [address] Electrolyte Balance 19.0 mEq/L High 4.0-15.0 [facility] Comment on above: Order Comment: CBN Performed By: #### B MP ####[facility], [address] [place] [address] 76878 Urea nitrogen 21.0 mg/dL Normal 8.0-22.0 [facility] Comment on above: Order Comment: CBN Performed By: #### B MP ####[facility], [facility] [address] [place] [address] 73877 Chloride 89 mmol/L Low 98-110 [facility] Comment on above: Order Comment: CBN Performed By: #### B MP ####[facility], [facility] [address] [place] [address] 45747 Potassium molar conc 4.5 mmol/L Normal 3.5-5.0 [facility] Comment on above: Order Comment: CBN Performed By: #### B MP ####[facility], [facility] [address] [place] [address] 04615 Sodium 129 mmol/L Low 136-145 [facility] Comment on above: Order Comment: CBN Performed By: #### B MP ####[facility], [address] [place] [address] 78534 CBCon 02-23-2017 Basophils/100 WBC Auto (Bld) 0.7 % Normal 0.0-2.5 [facility] Comment on above: Order Comment: CBN Performed By: #### C BC ####[address] [address] Eosinophils/100 leukocytes 0.7 % Normal 0.0-6.0 [facility] Comment on above: Order Comment: CBN Performed By: #### C BC ####[place] [address] Erythrocyte distribution width Auto Ratio (RBC) 14.9 % Normal 11.5-15.5 [facility] Comment on above: Order Comment: CBN Performed By: #### C BC ####[place] [id number] Erythrocytes (RBC) 5.16 10 6/mcL Normal 4.10-5.30 [facility] Comment on above: Order Comment: CBN Performed By: #### C BC ####[place] [id number] Hematocrit (HCT) 44.8 % Normal 34.0-46.0 [facility] Comment on above: Order Comment: CBN Performed By: #### C BC ####[place] [id number] Hemoglobin mass conc (Bld) 14.7 G/dL Normal 12.0-16.0 [facility] Comment on above: Order Comment: CBN Performed By: #### C BC ####[address] [address] Lymphocytes/100 leukocytes 21.2 % Normal 20.0-40.0 [facility] Comment on above: Order Comment: CBN Performed By: #### C BC ####[address] [place] [address] MCH 28.5 pg Normal 27.0-33.0 [facility] Comment on above: Order Comment: CBN Performed By: #### C BC ####[facility], [address] [place] [address] 30208 MCHC mass conc (RBC) 32.8 G/dL Normal 32.0-36.0 [facility] Comment on above: Order Comment: CBN Performed By: #### C BC ####[facility], [address] [place] [address] 91310 MCV 86.9 fL Normal 80.0-99.0 [facility] Comment on above: Order Comment: CBN Performed By: #### C BC ####[facility], [address] [place] [address] 06137 Monocytes/100 leukocytes 3.9 % Normal 2.0-13.0 [facility] Comment on above: Order Comment: CBN Performed By: #### C BC ####[facility], [address] [place] [address] 42959 Neutrophils 6.10 10 3/mcL Normal 1.90-7.90 [facility] Comment on above: Order Comment: CBN Performed By: #### C BC ####[facility], [address] [place] [address] 53048 Neutrophils/100 WBC Auto (Bld) 73.5 % Normal 50.0-75.0 [facility] Comment on above: Order Comment: CBN Performed By: #### C BC ####[facility], [address] [place] [address] 14186 Platelet mean volume (PMV) 7.9 fL Normal 6.6-10.5 [facility] Comment on above: Order Comment: CBN Performed By: #### C BC ####[facility], [address] [place] [address] 43893 Platelets 316 10 3/mcL Normal 150-450 [facility] Comment on above: Order Comment: CBN Performed By: #### C BC ####[facility], [address] [place] [address] 36583 WBC (Leukocytes) 8.30 10 3/mcL Normal 4.50-10.80 [facility] Comment on above: Order Comment: CBN Performed By: #### C BC ####[facility], [address] [place] [address] 86784 Culture Bloodon 02-23-2017 Culture Blood Name : KATHLEEN VILLA Brynn Roque: 1995 Sex: Ovalles# Loc Src Site [id number] Blood #1 02/23/17NTIBIOTICS AT COL.: See MEGAN Angel MEDICINE RESIDENT [address] [place], [place] [id number] Blood FINALCulture has been received in lab and is no growth to date.Routine cultures are held for 5 days.Blood Culture: No Growth at 5 daysKEY FOR RESULTS: - NEW RESULTATT.PHYS.: VAMSI MARRUFO LOCATION: [id number].DATE: 02/23/17 PATIENT : KATHLEEN VILLA LMICROBIOLOGYPRINTED: 02/28/17 18:00 REGULAR 2 PAGE: 2 of 1 1 Normal [facility] Drug Screen (s)on 02-23-2017 Acetaminophen mass conc <2.0 Low 10.0-30.0 [facility] Comment on above: Performed By: #### C BC ####[facility], [address] [place] [address] 10513 Drug Screen (s) Positive Normal [facility] Comment on above: Result Comment: . THE SERUM SHOWS EVIDENCE OF:1. Salicylate. Performed By: #### C BC ####[address] [address] Ethanol mg/dL Normal [facility] Comment on above: Performed By: #### C BC ####[address] [address] Serum TCA Negative Normal [facility] Comment on above: Performed By: #### C BC ####[facility], [address] [place] [address] Salicylate (ds) 3.0 mg/dL Low 10.0-25.0 [facility] Comment on above: Performed By: #### C BC ####[facility], [address] [place] [address] Drugs screened: SEE BELOW Normal [facility] Comment on above: Result Comment: T his drug screen is a presumptive screening only. Noconfirmation will be performed unless requested.Drugs screened include: Threshold Ethanol 10.0 mg/dl Salicylate 2.0 mg/dL Acetaminophen 2.0 mcg/mL Tricyclic Antidepressants 300 ng/mLTesting has been performed FOR MEDICAL PURPOSES ONLY. Performed By: #### C BC ####[place] [id number] ED Note-Provideron 7 ED Note-Provider Normal [facility] Glomerular Filtration Rate E stimateon 02-23-2017 eGFR (non-black) mL/min/{1.73_m2} Normal [facility] Comment on above: Result Comment: [facility] mean GFR = 116 mL/min/1.73 sq.m. for ages 20-29 years. Chronic Kidney Disease: Less than 60 mL/min/1.73 square metersEnd Stage Renal Disease: Less than 15 mL/min/1.73 square meters Performed By: #### C BC ####[place] [address] eGFR (non-black) mL/min/{1.73_m2} Normal [facility] Comment on above: Result Comment: [facility] mean GFR = 116 mL/min/1.73 sq.m. for ages 20-29 years. Chronic Kidney Disease: Less than 60 mL/min/1.73 square metersEnd Stage Renal Disease: Less than 15 mL/min/1.73 square meters Performed By: #### G FR ####[facility], [address] [place], [place] [address] eGFR (non-black) mL/min/{1.73_m2} Normal [facility] Comment on above: Order Comment: CBN Performed By: #### G FR ####[facility], [address] [place] [address] Result Comment: [facility] mean GFR = 116 mL/min/1.73 sq.m. for ages 20-29 years. Chronic Kidney Disease: Less than 60 mL/min/1.73 square metersEnd Stage Renal Disease: Less than 15 mL/min/1.73 square meters Magnesiumon 02-23-2017 Magnesium 2.0 mg/dL Normal 1.6-2.4 [facility] Comment on above: Performed By: #### M G ####[place] [address] Osmolality (s)on 02-23-2017 Osmolality 299 mOsm/kg Normal 275-300 [facility] Comment on above: Performed By: #### C BC ####[place] [id number] Phosphoruson 02-23-2017 Phosphate 2.8 mg/dL Normal 2.5-4.5 [facility] Comment on above: Performed By: #### P HOS ####[place] [id number] TSHon 02-23-2017 Thyroid stimulating hormone (TSH) 0.62 mcIU/mL Normal 0.36-3.74 [facility] Comment on above: Performed By: #### C BC ####[place] [id number] Troponin Ion 02-23-2017 Troponin I.cardiac mass conc ng/mL Normal 0.000-0.040 [facility] Comment on above: Result Comment: Trop onin I reference ranges (05/05/14): 0.00-0.040 ng/mL Negative and non-diagnostic. >0.040 ng/mL Consistent with cardiac damage, increased clinical risk and possibility of myocardial infarction. Serial measurements, a rise & fall in test results, clinical history, appropriate symptoms and/or ECG changes may help assess possibility of MA. *Other non-acute coronary syndrome conditions such as CHF, myocarditis, pulmonary emboli, sepsis and cardiac surgery could result in myocardial damage and increased troponin levels. NOTE: This is a new and more precise Troponin assay started 05-05-14 Performed By: #### T ROPI ####[facility], [address] [place] [address] XR CHEST 1 VIEWon 02-23-2017 XR CHEST [...] PM Sign Date: 02/23/2017 4:58:05 PM Normal [facility] XR FOOT COMPLETE RIGHTon XR FOOT [...] PM Sign Date: 02/23/2017 7:47:57 PM Normal [facility] pH (venous)on 02-23-2017 pH of blood 7.381 [pH] Normal 7.380-7.460 [facility] Comment on above: Order Comment: CBN Performed By: #### P HV ####[facility], [address] [place] [address] Vital Signs Date Time Vital Sign Value Performing Clinician Facility 01-27-2025 13:08-0400 Diastolic blood pressure 87 mm[Hg] Mishel Neelima PA-C Work Phone: [facility] 01-27-2025 13:08-0400 Heart rate 98 /min Mishel Neelima PA-C Work Phone: [facility] 01-27-2025 13:08-0400 Systolic blood pressure 134 mm[Hg] Mishel Neelima PA-C Work Phone: [facility] 11-11-2024 10:18-0400 Body height 175.3 cm Leticia Islase DO Work Phone: [facility] 11-11-2024 10:18-0400 Body mass index (BMI) [Ratio] 25.07 kg/m2 Leticia Hylton DO Work Phone: [facility] 11-11-2024 10:18-0400 Body weight 77 kg Leticia Islase DO Work Phone: [facility] 11-11-2024 10:18-0400 Diastolic blood pressure 66 mm[Hg] Leticia Hylton DO Work Phone: [facility] 11-11-2024 10:18-0400 Heart rate 107 /min Leticia Islase DO Work Phone: [facility] 11-11-2024 10:18-0400 Systolic blood pressure 103 mm[Hg] Leticia Hylton DO Work Phone: [facility] 07-10-2024 11:25-0500 Body height 172.7 cm Jason Paredes MD Work Phone: [facility] 07-10-2024 11:25-0500 Body mass index (BMI) [Ratio] 26 kg/m2 Jason Paredes MD Work Phone: [facility] 07-10-2024 11:25-0500 Body weight 77.56 kg Jason Paredes MD Work Phone: [facility] 07-10-2024 11:25-0500 Diastolic blood pressure 68 mm[Hg] Jason Paredes MD Work Phone: [facility] 07-10-2024 11:25-0500 Systolic blood pressure 112 mm[Hg] Jason Paredes MD Work Phone: [facility] 03-12-2024 13:58-0400 Body height 175.3 cm Kvng Lewis MD Work Phone: [facility] 03-12-2024 13:58-0400 Body mass index (BMI) [Ratio] 25.39 kg/m2 Kvng Lewis MD Work Phone: [facility] 03-12-2024 13:58-0400 Body weight 78 kg Kvng Lewis MD Work Phone: [facility] 03-12-2024 13:58-0400 Diastolic blood pressure 58 mm[Hg] Kvng Lewis MD Work Phone: [facility] 03-12-2024 13:58-0400 Heart rate 69 /min Kvng Lewis MD Work Phone: [facility] 03-12-2024 13:58-0400 SaO2% (BldA) [Mass fraction] 97 % Kvng Lewis MD Work Phone: [facility] 03-12-2024 13:58-0400 Systolic blood pressure 100 mm[Hg] Kvng Lewis MD Work Phone: [facility] 12-13-2023 15:12-0400 Body weight 77.11 kg Jessica Guerrero APRN.CNP Work Phone: [facility] 12-13-2023 15:12-0400 Diastolic blood pressure 87 mm[Hg] Jessica Motley FAMILY PROGRAM SPECIALIST.SUPERVISOR [employer]ICULTURAL EDUCATION Work Phone: [facility] 12-13-2023 15:12-0400 Heart rate 80 /min Jessica Motley FAMILY PROGRAM SPECIALIST.SUPERVISOR [employer]ICULT[employer] EDUCATION Work Phone: [facility] 12-13-2023 15:12-0400 Respiratory rate 16 /min Jessica Motley FAMILY PROGRAM SPECIALIST.SUPERVISOR [employer]ICULTURAL EDUCATION Work Phone: [facility] 12-13-2023 15:12-0400 Systolic blood pressure 139 mm[Hg] Jessica Motley FAMILY PROGRAM SPECIALIST.SUPERVISOR [employer]ICULTURAL EDUCATION Work Phone: [facility] 12-07-2023 17:30-0400 Body height 175.26 cm No Primary Care Physician [facility] 12-07-2023 17:30-0400 Body temperature 97.1 [degF] No Primary Care Physician [facility] 12-07-2023 17:30-0400 Diastolic blood pressure 70 mm[Hg] No Primary Care Physician [facility] 12-07-2023 17:30-0400 Heart rate 68 /min No Primary Care Physician [facility] 12-07-2023 17:30-0400 Respiratory rate 15 /min No Primary Care Physician [facility] 12-07-2023 17:30-0400 SaO2% (BldA) [Mass fraction] 98 % No Primary Care Physician [facility] 12-07-2023 17:30-0400 Systolic blood pressure 130 mm[Hg] No Primary Care Physician [facility] 10-25-2023 22:04-0500 Body temperature 97.4 [degF] No Primary Care Physician [facility] 10-25-2023 22:04-0500 Diastolic blood pressure 64 mm[Hg] No Primary Care Physician [facility] 10-25-2023 22:04-0500 Heart rate 77 /min No Primary Care Physician [facility] 10-25-2023 22:04-0500 Respiratory rate 19 /min No Primary Care Physician [facility] 10-25-2023 22:04-0500 SaO2% (BldA) [Mass fraction] 100 % No Primary Care Physician [facility] 10-25-2023 22:04-0500 Systolic blood pressure 117 mm[Hg] No Primary Care Physician [facility] 10-25-2023 17:12-0500 Body mass index (BMI) [Ratio] 23.3 kg/m2 No Primary Care Physician [facility] 10-25-2023 17:12-0500 Body weight 71.7 kg No Primary Care Physician [facility] 10-25-2023 16:24-0500 Body height 175.26 cm No Primary Care Physician [facility] 10-18-2023 10:00-0500 Diastolic blood pressure 71 mm[Hg] No Primary Care Physician [facility] 10-18-2023 10:00-0500 Heart rate 62 /min No Primary Care Physician [facility] 10-18-2023 10:00-0500 Respiratory rate 16 /min No Primary Care Physician [facility] 10-18-2023 10:00-0500 SaO2% (BldA) [Mass fraction] 99 % No Primary Care Physician [facility] 10-18-2023 10:00-0500 Systolic blood pressure 115 mm[Hg] No Primary Care Physician [facility] 10-18-2023 08:00-0500 Body temperature 97.9 [degF] No Primary Care Physician [facility] 10-18-2023 05:28-0500 Body mass index (BMI) [Ratio] 24.6 kg/m2 No Primary Care Physician [facility] 10-18-2023 05:28-0500 Body weight 75.6 kg No Primary Care Physician [facility] 10-17-2023 15:25-0500 Body height 175.26 cm No Primary Care Physician [facility] 10-17-2023 11:51-0500 Body temperature 97.6 [degF] No Primary Care Physician [facility] 10-17-2023 11:51-0500 Diastolic blood pressure 58 mm[Hg] No Primary Care Physician [facility] 10-17-2023 11:51-0500 Heart rate 85 /min No Primary Care Physician [facility] 10-17-2023 11:51-0500 Respiratory rate 18 /min No Primary Care Physician [facility] 10-17-2023 11:51-0500 SaO2% (BldA) [Mass fraction] 98 % No Primary Care Physician [facility] 10-17-2023 11:51-0500 Systolic blood pressure 116 mm[Hg] No Primary Care Physician [facility] 10-17-2023 09:57-0500 Body height 175.26 cm No Primary Care Physician [facility] 10-17-2023 09:57-0500 Body mass index (BMI) [Ratio] 24.7 kg/m2 No Primary Care Physician [facility] 10-17-2023 09:57-0500 Body weight 76.2 kg No Primary Care Physician [facility] 09-25-2023 11:05-0500 Body temperature 97.6 [degF] No Primary Care Physician [facility] 09-25-2023 11:05-0500 Heart rate 76 /min No Primary Care Physician [facility] 09-25-2023 11:05-0500 Respiratory rate 14 /min No Primary Care Physician [facility] 09-25-2023 11:05-0500 SaO2% (BldA) [Mass fraction] 99 % No Primary Care Physician [facility] 09-25-2023 08:08-0500 Body mass index (BMI) [Ratio] 24.1 kg/m2 No Primary Care Physician [facility] 09-25-2023 08:08-0500 Body weight 74.19 kg No Primary Care Physician [facility] 09-25-2023 08:08-0500 Diastolic blood pressure 79 mm[Hg] No Primary Care Physician [facility] 09-25-2023 08:08-0500 Systolic blood pressure 140 mm[Hg] No Primary Care Physician [facility] 09-24-2023 20:19-0500 Body temperature 97 [degF] No Primary Care Physician [facility] 09-24-2023 20:19-0500 Diastolic blood pressure 66 mm[Hg] No Primary Care Physician [facility] 09-24-2023 20:19-0500 Heart rate 96 /min No Primary Care Physician [facility] 09-24-2023 20:19-0500 Respiratory rate 16 /min No Primary Care Physician [facility] 09-24-2023 20:19-0500 SaO2% (BldA) [Mass fraction] 97 % No Primary Care Physician [facility] 09-24-2023 20:19-0500 Systolic blood pressure 125 mm[Hg] No Primary Care Physician [facility] 09-24-2023 17:48-0500 Body height 175.26 cm No Primary Care Physician [facility] 09-24-2023 17:48-0500 Body mass index (BMI) [Ratio] 24.3 kg/m2 No Primary Care Physician [facility] 09-24-2023 17:48-0500 Body weight 74.7 kg No Primary Care Physician [facility] 09-20-2023 15:35-0500 Diastolic blood pressure 79 mm[Hg] No Primary Care Physician [facility] 09-20-2023 15:35-0500 Heart rate 79 /min No Primary Care Physician [facility] 09-20-2023 15:35-0500 Respiratory rate 16 /min No Primary Care Physician [facility] 09-20-2023 15:35-0500 SaO2% (BldA) [Mass fraction] 97 % No Primary Care Physician [facility] 09-20-2023 15:35-0500 Systolic blood pressure 107 mm[Hg] No Primary Care Physician [facility] 09-20-2023 10:21-0500 Body mass index (BMI) [Ratio] 25.9 kg/m2 No Primary Care Physician [facility] 09-20-2023 10:21-0500 Body temperature 97.9 [degF] No Primary Care Physician [facility] 09-20-2023 10:21-0500 Body weight 79.9 kg No Primary Care Physician [facility] 09-06-2023 21:32-0500 Heart rate 78 /min No Primary Care Physician [facility] 09-06-2023 21:32-0500 Respiratory rate 18 /min No Primary Care Physician [facility] 09-06-2023 21:32-0500 SaO2% (BldA) [Mass fraction] 99 % No Primary Care Physician [facility] 09-06-2023 21:30-0500 Diastolic blood pressure 72 mm[Hg] No Primary Care Physician [facility] 09-06-2023 21:30-0500 Systolic blood pressure 118 mm[Hg] No Primary Care Physician [facility] 09-06-2023 18:31-0500 Body mass index (BMI) [Ratio] 25.3 kg/m2 No Primary Care Physician [facility] 09-06-2023 18:31-0500 Body temperature 98.2 [degF] No Primary Care Physician [facility] 09-06-2023 18:31-0500 Body weight 77.9 kg No Primary Care Physician [facility] 08-22-2023 06:14-0500 Diastolic blood pressure 63 mm[Hg] No Primary Care Physician [facility] 08-22-2023 06:14-0500 Heart rate 64 /min No Primary Care Physician [facility] 08-22-2023 06:14-0500 Respiratory rate 16 /min No Primary Care Physician [facility] 08-22-2023 06:14-0500 SaO2% (BldA) [Mass fraction] 97 % No Primary Care Physician [facility] 08-22-2023 06:14-0500 Systolic blood pressure 99 mm[Hg] No Primary Care Physician [facility] 08-22-2023 02:45-0500 Body height 175.26 cm No Primary Care Physician [facility] 08-22-2023 02:45-0500 Body mass index (BMI) [Ratio] 26.4 kg/m2 No Primary Care Physician [facility] 08-22-2023 02:45-0500 Body temperature 98.7 [degF] No Primary Care Physician [facility] 08-22-2023 02:45-0500 Body weight 81.2 kg No Primary Care Physician [facility] 08-10-2023 08:00-0500 Body temperature 98.1 [degF] No Primary Care Physician [facility] 08-10-2023 08:00-0500 Diastolic blood pressure 71 mm[Hg] No Primary Care Physician [facility] 08-10-2023 08:00-0500 Heart rate 65 /min No Primary Care Physician [facility] 08-10-2023 08:00-0500 Respiratory rate 15 /min No Primary Care Physician [facility] 08-10-2023 08:00-0500 SaO2% (BldA) [Mass fraction] 97 % No Primary Care Physician [facility] 08-10-2023 08:00-0500 Systolic blood pressure 109 mm[Hg] No Primary Care Physician [facility] 08-10-2023 05:07-0500 Body mass index (BMI) [Ratio] 25.9 kg/m2 No Primary Care Physician [facility] 08-10-2023 05:07-0500 Body weight 79.9 kg No Primary Care Physician [facility] 08-07-2023 10:46-0500 Body height 175.26 cm No Primary Care Physician [facility] 08-07-2023 00:45-0500 Diastolic blood pressure 41 mm[Hg] No Primary Care Physician [facility] 08-07-2023 00:45-0500 Heart rate 114 /min No Primary Care Physician [facility] 08-07-2023 00:45-0500 Respiratory rate 18 /min No Primary Care Physician [facility] 08-07-2023 00:45-0500 SaO2% (BldA) [Mass fraction] 99 % No Primary Care Physician [facility] 08-07-2023 00:45-0500 Systolic blood pressure 136 mm[Hg] No Primary Care Physician [facility] 08-06-2023 21:33-0500 Body height 175.26 cm No Primary Care Physician [facility] 08-06-2023 21:33-0500 Body mass index (BMI) [Ratio] 25.9 kg/m2 No Primary Care Physician [facility] 08-06-2023 21:33-0500 Body temperature 97.8 [degF] No Primary Care Physician [facility] 08-06-2023 21:33-0500 Body weight 79.8 kg No Primary Care Physician [facility] 08-06-2023 14:00-0500 Respiratory rate 16 /min No Primary Care Physician [facility] 08-06-2023 08:53-0500 Body height 175.26 cm No Primary Care Physician [facility] 08-06-2023 08:53-0500 Body mass index (BMI) [Ratio] 26.3 kg/m2 No Primary Care Physician [facility] 08-06-2023 08:53-0500 Body temperature 97.6 [degF] No Primary Care Physician [facility] 08-06-2023 08:53-0500 Body weight 80.8 kg No Primary Care Physician [facility] 08-06-2023 08:53-0500 Diastolic blood pressure 83 mm[Hg] No Primary Care Physician [facility] 08-06-2023 08:53-0500 Heart rate 115 /min No Primary Care Physician [facility] 08-06-2023 08:53-0500 SaO2% (BldA) [Mass fraction] 97 % No Primary Care Physician [facility] 08-06-2023 08:53-0500 Systolic blood pressure 126 mm[Hg] No Primary Care Physician [facility] 06-26-2023 02:56-0400 Diastolic blood pressure 48 mm[Hg] No Primary Care Physician [facility] 06-26-2023 02:56-0400 Systolic blood pressure 96 mm[Hg] No Primary Care Physician [facility] 06-26-2023 01:13-0400 Heart rate 80 /min No Primary Care Physician [facility] 06-26-2023 01:13-0400 Respiratory rate 18 /min No Primary Care Physician [facility] 06-26-2023 01:13-0400 SaO2% (BldA) [Mass fraction] 97 % No Primary Care Physician [facility] 06-25-2023 23:14-0400 Body height 175.26 cm No Primary Care Physician [facility] 06-25-2023 23:14-0400 Body mass index (BMI) [Ratio] 26.5 kg/m2 No Primary Care Physician [facility] 06-25-2023 23:14-0400 Body temperature 97.4 [degF] No Primary Care Physician [facility] 06-25-2023 23:14-0400 Body weight 81.6 kg No Primary Care Physician [facility] 06-25-2023 11:37-0400 Heart rate 82 /min No Primary Care Physician [facility] 06-25-2023 11:37-0400 Respiratory rate 16 /min No Primary Care Physician [facility] 06-25-2023 11:37-0400 SaO2% (BldA) [Mass fraction] 97 % No Primary Care Physician [facility] 06-25-2023 08:21-0400 Body height 175.01 cm No Primary Care Physician [facility] 06-25-2023 08:21-0400 Body mass index (BMI) [Ratio] 25.8 kg/m2 No Primary Care Physician [facility] 06-25-2023 08:21-0400 Body temperature 97.4 [degF] No Primary Care Physician [facility] 06-25-2023 08:21-0400 Body weight 79.06 kg No Primary Care Physician [facility] 06-25-2023 08:21-0400 Diastolic blood pressure 45 mm[Hg] No Primary Care Physician [facility] 06-25-2023 08:21-0400 Systolic blood pressure 136 mm[Hg] No Primary Care Physician [facility] 05-31-2023 15:02-0400 Body weight 78.47 kg Jessica Motley FAMILY PROGRAM SPECIALIST.SUPERVISOR [employer]IC[employer]UCATION Work Phone: [facility] 05-31-2023 15:02-0400 Diastolic blood pressure 60 mm[Hg] Jessica Motley FAMILY PROGRAM SPECIALIST.SUPERVISOR [employer] EDUCATION Work Phone: [facility] 05-31-2023 15:02-0400 Heart rate 91 /min Jessica Motley FAMILY PROGRAM SPECIALIST.SUPERVISOR [employer]UCATION Work Phone: [facility] 05-31-2023 15:02-0400 Respiratory rate 18 /min Jessica Motley FAMILY PROGRAM SPECIALIST.SUPERVISOR [employer]IC[employer] EDUCATION Work Phone: [facility] 05-31-2023 15:02-0400 Systolic blood pressure 92 mm[Hg] Jessica Motley FAMILY PROGRAM SPECIALIST.SUPERVISOR [employer]IC[employer] EDUCATION Work Phone: [facility] 05-03-2023 09:00-0400 Respiratory rate 16 /min No Primary Care Physician [facility] 05-03-2023 04:23-0400 Body height 175.26 cm No Primary Care Physician [facility] 05-03-2023 04:23-0400 Body mass index (BMI) [Ratio] 26.9 kg/m2 No Primary Care Physician [facility] 05-03-2023 04:23-0400 Body temperature 97.7 [degF] No Primary Care Physician [facility] 05-03-2023 04:23-0400 Body weight 82.8 kg No Primary Care Physician [facility] 05-03-2023 04:23-0400 Diastolic blood pressure 68 mm[Hg] No Primary Care Physician [facility] 05-03-2023 04:23-0400 Heart rate 89 /min No Primary Care Physician [facility] 05-03-2023 04:23-0400 SaO2% (BldA) [Mass fraction] 97 % No Primary Care Physician [facility] 05-03-2023 04:23-0400 Systolic blood pressure 121 mm[Hg] No Primary Care Physician [facility] 04-29-2023 14:12-0400 Body temperature 98.3 [degF] No Primary Care Physician [facility] 04-29-2023 14:12-0400 Diastolic blood pressure 61 mm[Hg] No Primary Care Physician [facility] 04-29-2023 14:12-0400 Heart rate 62 /min No Primary Care Physician [facility] 04-29-2023 14:12-0400 Respiratory rate 18 /min No Primary Care Physician [facility] 04-29-2023 14:12-0400 SaO2% (BldA) [Mass fraction] 98 % No Primary Care Physician [facility] 04-29-2023 14:12-0400 Systolic blood pressure 132 mm[Hg] No Primary Care Physician [facility] 04-28-2023 12:55-0400 Body height 175.26 cm No Primary Care Physician [facility] 04-28-2023 12:55-0400 Body weight 78.69 kg No Primary Care Physician [facility] 04-27-2023 17:02-0400 Body mass index (BMI) [Ratio] 25.6 kg/m2 No Primary Care Physician [facility] 04-27-2023 16:45-0400 Diastolic blood pressure 61 mm[Hg] [facility] 04-27-2023 16:45-0400 Respiratory rate 18 /min [facility] 04-27-2023 16:45-0400 Systolic blood pressure 118 mm[Hg] [facility] 04-27-2023 16:13-0400 Body temperature 97.8 [degF] [facility] 04-27-2023 16:13-0400 Heart rate 90 /min [facility] 04-27-2023 13:23-0400 SaO2% (BldA) [Mass fraction] 96 % [facility] 04-27-2023 09:26-0400 Body height 175.01 cm [facility] 04-27-2023 09:26-0400 Body mass index (BMI) [Ratio] 28.1 kg/m2 [facility] 04-27-2023 09:26-0400 Body weight 86.2 kg [facility] 04-26-2023 23:47-0400 Respiratory rate 22 /min [facility] 04-26-2023 22:00-0400 Heart rate 81 /min [facility] 04-26-2023 22:00-0400 SaO2% (BldA) [Mass fraction] 97 % [facility] 04-26-2023 21:29-0400 Diastolic blood pressure 82 mm[Hg] [facility] 04-26-2023 21:29-0400 Systolic blood pressure 115 mm[Hg] [facility] 04-26-2023 20:25-0400 Body height 175.26 cm [facility] 04-26-2023 20:25-0400 Body mass index (BMI) [Ratio] 25.4 kg/m2 [facility] 04-26-2023 20:25-0400 Body temperature 98.6 [degF] [facility] 04-26-2023 20:25-0400 Body weight 78.21 kg [facility] 04-23-2023 13:00-0400 Respiratory rate 16 /min [facility] 04-23-2023 11:40-0400 Heart rate 52 /min [facility] 04-23-2023 08:33-0400 Body mass index (BMI) [Ratio] 26.9 kg/m2 [facility] 04-23-2023 08:33-0400 Body temperature 97.6 [degF] [facility] 04-23-2023 08:33-0400 Body weight 82.6 kg [facility] 04-23-2023 08:33-0400 Diastolic blood pressure 77 mm[Hg] [facility] 04-23-2023 08:33-0400 SaO2% (BldA) [Mass fraction] 96 % [facility] 04-23-2023 08:33-0400 Systolic blood pressure 123 mm[Hg] [facility] 03-22-2023 11:23-0400 Body temperature 98.1 [degF] Benito Jewell MD Work Phone: [facility] 03-22-2023 11:23-0400 Diastolic blood pressure 72 mm[Hg] Benito Jewell MD Work Phone: [facility] 03-22-2023 11:23-0400 Heart rate 61 /min Benito Jewell MD Work Phone: [facility] 03-22-2023 11:23-0400 Respiratory rate 16 /min Benito Jewell MD Work Phone: [facility] 03-22-2023 11:23-0400 SaO2% (BldA) [Mass fraction] 96 % Benito Jewell MD Work Phone: [facility] 03-22-2023 11:23-0400 Systolic blood pressure 116 mm[Hg] Benito Jewell MD Work Phone: [facility] 03-20-2023 03:02-0400 Body height 175.3 cm Benito Jewell MD Work Phone: [facility] 03-20-2023 03:02-0400 Body mass index (BMI) [Ratio] 26.73 kg/m2 Benito Jweell MD Work Phone: [facility] 03-20-2023 03:02-0400 Body weight 82.1 kg Benito Jewell MD Work Phone: [facility] 01-25-2023 14:02-0400 Body weight 83.92 kg Autumn Valadez APRN.SUPERVISOR [employer]IC[employer]UCATION Work Phone: [facility] 01-25-2023 14:02-0400 Diastolic blood pressure 64 mm[Hg] Autumn Valadez APRN.SUPERVISOR [employer]IC[employer]UCATION Work Phone: [facility] 01-25-2023 14:02-0400 Heart rate 73 /min Autumn Valadez APRN.SUPERVISOR [employer]UCATION Work Phone: [facility] 01-25-2023 14:02-0400 Respiratory rate 18 /min Autumn Valadez APRN.SUPERVISOR [employer]IC[employer] EDUCATION Work Phone: [facility] 01-25-2023 14:02-0400 Systolic blood pressure 129 mm[Hg] Autumn Valadez APRN.SUPERVISOR [employer]ICULT[employer] EDUCATION Work Phone: [facility] 12-08-2022 14:10-0400 Body height 175.3 cm Vivi Smith MD Work Phone: [facility] 12-08-2022 14:10-0400 Body temperature 97 [degF] Vivi Smith MD Work Phone: [facility] 12-08-2022 14:10-0400 Body weight 85 kg Vivi Smith MD Work Phone: [facility] 12-08-2022 14:10-0400 Diastolic blood pressure 86 mm[Hg] Vivi Smith MD Work Phone: [facility] 12-08-2022 14:10-0400 Heart rate 90 /min Vivi Smith MD Work Phone: [facility] 12-08-2022 14:10-0400 Respiratory rate 20 /min Vivi Smith MD Work Phone: [facility] 12-08-2022 14:10-0400 SaO2% (BldA) [Mass fraction] 98 % Vivi Smith MD Work Phone: [facility] 12-08-2022 14:10-0400 Systolic blood pressure 142 mm[Hg] Vivi Smith MD Work Phone: [facility] 11-07-2022 14:00-0400 Body temperature 97.3 [degF] Abelardo La MD Work Phone: [facility] 11-07-2022 14:00-0400 Body weight 90.72 kg Abelardo La MD Work Phone: [facility] 11-07-2022 14:00-0400 Diastolic blood pressure 72 mm[Hg] Abelardo La MD Work Phone: [facility] 11-07-2022 14:00-0400 Heart rate 94 /min Abelardo La MD Work Phone: [facility] 11-07-2022 14:00-0400 Respiratory rate 16 /min Abelardo La MD Work Phone: [facility] 11-07-2022 14:00-0400 SaO2% (BldA) [Mass fraction] 95 % Abelardo La MD Work Phone: [facility] 11-07-2022 14:00-0400 Systolic blood pressure 129 mm[Hg] Abelardo La MD Work Phone: [facility] 10-22-2022 16:14-0500 Body temperature 99.5 [degF] Abelardo La MD Work Phone: [facility] 10-22-2022 16:14-0500 Body weight 86.18 kg Abelardo La MD Work Phone: [facility] 10-22-2022 16:14-0500 Diastolic blood pressure 96 mm[Hg] Abelardo La MD Work Phone: [facility] 10-22-2022 16:14-0500 Heart rate 143 /min Abelardo La MD Work Phone: [facility] 10-22-2022 16:14-0500 Respiratory rate 20 /min Abelardo La MD Work Phone: [facility] 10-22-2022 16:14-0500 SaO2% (BldA) [Mass fraction] 94 % Abelardo La MD Work Phone: [facility] 10-22-2022 16:14-0500 Systolic blood pressure 150 mm[Hg] Abelardo La MD Work Phone: [facility] 09-19-2022 13:18-0500 Body temperature 97.5 [degF] Injection/[facility] 09-19-2022 13:18-0500 Diastolic blood pressure 62 mm[Hg] Injection/[facility] 09-19-2022 13:18-0500 Heart rate 50 /min Injection/[facility] 09-19-2022 13:18-0500 Respiratory rate 18 /min Injection/[facility] 09-19-2022 13:18-0500 Systolic blood pressure 123 mm[Hg] Injection/[facility] 08-16-2022 15:14-0500 Body weight 87.09 kg 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SUPERVISOR [employer]IC[employer]UCATION Work Phone: [facility] 08-16-2022 15:14-0500 Diastolic blood pressure 58 mm[Hg] Autumn Damonssler FAMILY PROGRAM SPECIALIST.SUPERVISOR [employer]IC[employer] EDUCATION Work Phone: [facility] 08-16-2022 15:14-0500 Heart rate 68 /min 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SUPERVISOR [employer]IC[employer] EDUCATION Work Phone: [facility] 08-16-2022 15:14-0500 SaO2% (BldA) [Mass fraction] 95 % 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SUPERVISOR [employer]IC[employer] EDUCATION Work Phone: [facility] 08-16-2022 15:14-0500 Systolic blood pressure 113 mm[Hg] Autumn Damonssler FAMILY PROGRAM SPECIALIST.SUPERVISOR [employer]IC[employer] EDUCATION Work Phone: [facility] 08-05-2022 11:37-0500 Body temperature 97.2 [degF] Injection/[facility] 08-05-2022 11:37-0500 Diastolic blood pressure 70 mm[Hg] Injection/[facility] 08-05-2022 11:37-0500 Heart rate 68 /min Injection/[facility] 08-05-2022 11:37-0500 Respiratory rate 18 /min Injection/[facility] 08-05-2022 11:37-0500 Systolic blood pressure 119 mm[Hg] Injection/[facility] 06-07-2022 14:14-0400 Body height 175.3 cm Phoebe FAMILY PROGRAM SPECIALIST.SUPERVISOR [employer]IC[employer] EDUCATION Work Phone: [facility] 06-07-2022 14:14-0400 Body weight 82.33 kg Phoebe er FAMILY PROGRAM SPECIALIST.SUPERVISOR [employer]IC[employer] EDUCATION Work Phone: [facility] 06-07-2022 14:14-0400 Diastolic blood pressure 70 mm[Hg] Phoebe er FAMILY PROGRAM SPECIALIST.SUPERVISOR [employer]IC[employer] EDUCATION Work Phone: [facility] 06-07-2022 14:14-0400 Systolic blood pressure 118 mm[Hg] Phoebe Mckeon FAMILY PROGRAM SPECIALIST.SUPERVISOR [employer]IC[employer] EDUCATION Work Phone: [facility] 04-18-2022 08:13-0400 Body height 175.3 cm Dishon Kamwesa FAMILY PROGRAM SPECIALIST.SUPERVISOR [employer]IC[employer] EDUCATION Work Phone: [facility] 04-18-2022 08:13-0400 Body temperature 96.91 [degF] Dishon Kamwesa FAMILY PROGRAM SPECIALIST.SUPERVISOR [employer]IC[employer] EDUCATION Work Phone: [facility] 04-18-2022 08:13-0400 Body weight 81.65 kg Dishon Kamwesa FAMILY PROGRAM SPECIALIST.SUPERVISOR [employer]IC[employer] EDUCATION Work Phone: [facility] 04-18-2022 08:13-0400 Diastolic blood pressure 72 mm[Hg] Dishon Kamwesa FAMILY PROGRAM SPECIALIST.SUPERVISOR [employer]IC[employer] EDUCATION Work Phone: [facility] 04-18-2022 08:13-0400 Heart rate 78 /min Dishon Kamwesa FAMILY PROGRAM SPECIALIST.SUPERVISOR [employer]ICULTURAL EDUCATION Work Phone: [facility] 04-18-2022 08:13-0400 SaO2% (BldA) [Mass fraction] 97 % Dishon Kamwesa FAMILY PROGRAM SPECIALIST.SUPERVISOR [employer]ICULTURAL EDUCATION Work Phone: [facility] 04-18-2022 08:13-0400 Systolic blood pressure 120 mm[Hg] Dishon Kamwesa 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 03-07-2022 14:00-0400 Diastolic blood pressure 65 mm[Hg] Injection/[facility] 03-07-2022 14:00-0400 Heart rate 83 /min Injection/[facility] 03-07-2022 14:00-0400 Respiratory rate 16 /min Injection/[facility] 03-07-2022 14:00-0400 Systolic blood pressure 124 mm[Hg] Injection/[facility] 12-28-2021 16:16-0400 Body temperature 97.88 [degF] ANITA COMER MD [facility] 12-28-2021 16:16-0400 Diastolic blood pressure 81 mm[Hg] ANITA COMER MD [facility] 12-28-2021 16:16-0400 Heart rate 78 /min ANITA COMER MD [facility] 12-28-2021 16:16-0400 Respiratory rate 20 /min ANITA COMER MD [facility] 12-28-2021 16:16-0400 Systolic blood pressure 134 mm[Hg] ANITA COMER MD [facility] 05-31-2021 20:30-0400 SaO2% (BldA) [Mass fraction] 100 % [facility] Comment on above: Order Comment: [place]: M Performed By: #### L [id number] ####[facility] [id number] [place], [place] [address]Ny# [phone] Encounters Encounter Date Encounter Type Care Provider Facility Start: 03-06-2025 ambulatory Dangelo Encarnacion Fac ility:[facility] Start: 03-06-2025 End: 03-08-2025 Evaluation and management of inpatient Dangelo Encarnacion Facility:[facility] Start: 03-05-2025 End: 03-05-2025 ambulatory Zebulun Beam VSC Facility:[facility] Start: 02-25-2025 End: 02-25-2025 ambulatory Zebulun Beam VSC Facility:[facility] Start: 02-18-2025 ambulatory Zebulun Beam VSC Facili ty:[facility] Start: 02-18-2025 End: 02-19-2025 Evaluation and management of inpatient Zebulun Beam VSC Facility:[facility] Start: 02-03-2025 End: 02-03-2025 ambulatory Zebulun Beam VSC Facility:[facility] Start: 01-27-2025 End: 01-27-2025 Office outpatient visit 25 minutes Mishel Ortez PA-C Work Phone: [facility] Comment on above: Psoriasis vulgaris ( Primary Dx); Folliculitis; Multiple benign melanocytic nevi of both upper extremities, both lower extremities, and trunk; Seborrheic keratosis; Solar lentigo; Dermatofibroma; Cody angioma; Screening for viral disease; Encounter for screening for respiratory tuberculosis; Encounter for long-term (current) use of medications Start: 01-27-2025 End: 01-27-2025 [facility] Start: 01-22-2025 ambulatory Zebulun Beam VSC Facili ty:[facility] Start: 01-22-2025 End: 01-26-2025 Evaluation and management of inpatient Zebulun Beam VSC Facility:[facility] Start: 01-08-2025 End: 01-08-2025 ambulatory Zebulun Beam VSC Facility:[facility] [place] [place] Start: 01-07-2025 End: 01-08-2025 Refill Mihsel Ortez PA-C Work Phone: [facility] Start: 12-25-2024 End: 12-25-2024 ambulatory Zebulun Beam VSC Facility:[facility] Start: 12-19-2024 End: 12-23-2024 Telephone encounter Manasa Cantu PA-C Work Phone: [facility] Comment on above: Appointment Request (rayray) Start: 12-14-2024 End: 12-16-2024 ambulatory Dangelo Encarnacion Facility:[facility] Start: 11-28-2024 End: 11-28-2024 ambulatory No Primary Care Physician Facility:[facility] Start: 11-11-2024 End: 11-11-2024 Telephone encounter Leticia Hylton DO Work Phone: Gastroenterology Start: 11-11-2024 End: 11-11-2024 Subsequent hospital visit by physician [facility] Comment on above: Chronic idiopathic c onstipation [K59.04] Start: 11-11-2024 End: 11-11-2024 ambulatory LETICIA HYLTON Facility:[facility] Start: 11-11-2024 End: 11-11-2024 Patient encounter procedure Leticia Hylton DO Work Phone: Gastroenterology Comment on above: Chronic idiopathic c onstipation (Primary Dx); Abdominal pain, suprapubic Start: 11-05-2024 ambulatory No Primary Car e Physician Facility:[facility] [place] [place] Start: 11-05-2024 End: 11-06-2024 Evaluation and management of inpatient John Knapp Facility:[facility] Start: 11-05-2024 End: 11-05-2024 Telephone encounter Leticia Hylton DO Work Phone: Gastroenterology Comment on above: Patient states havin g major issues Start: 11-03-2024 End: 11-04-2024 Emergency department patient visit No Primary Care Physician Facility:[facility] Start: 10-18-2024 End: 10-21-2024 ambulatory Ramya Lombardo Facility:[facility] Start: 10-02-2024 End: 10-10-2024 Telephone encounter Jessica Guerrero APRN.SUPERVISOR [employer]ULT[employer]UCATION Work Phone: Endocrinology Comment on above: Forms Start: 09-02-2024 End: 09-02-2024 Emergency department patient visit No Primary Care Physician Facility:[facility] Start: 09-02-2024 End: 09-02-2024 ambulatory Leticia Hylton DO Work Phone: Gastroenterology Comment on above: Chronic idiopathic c onstipation (Primary Dx); Gastroparesis Start: 09-02-2024 End: 09-02-2024 Telemedicine consultation with patient Leticia Hylton DO Work Phone: Gastroenterology Start: 08-07-2024 End: 08-07-2024 Telephone encounter Manasa Cantu PA-C Work Phone: [facility] Comment on above: Prior Authorization (Skyrizi renewal) Start: 08-02-2024 ambulatory Vamsi Duvall Facili ty:[facility] Start: 08-02-2024 End: 08-03-2024 Evaluation and management of inpatient Vamsi Duvall Facility:[facility] Start: 08-01-2024 End: 08-01-2024 Emergency department patient visit No Primary Care Physician Facility:[facility] Start: 2024 End: 08-06-2024 ambulatory [facility] Facility:[facility] Start: 07-23-2024 End: 07-23-2024 ambulatory [facility] Facility:[facility] Start: 07-23-2024 End: 07-23-2024 Nursing evaluation [...] Phone: Endocrinology Start: 07-11-2024 End: 07-27-2024 ambulatory [facility] Facility:[facility] Start: 07-10-2024 End: 07-10-2024 ambulatory VIVI IZAGUIRREAHIM Facility:[facility] Start: 07-10-2024 End: 07-10-2024 ambulatory VIVI BARAHONA SMITH Facility:[facility] Start: 07-10-2024 End: 07-10-2024 Patient encounter procedure Jason Paredes MD Work Phone: OB/Gynecology Comment on above: Encounter for gyneco logical examination (general) (routine) without abnormal findings (Primary Dx); Encounter for screening for malignant neoplasm of cervix; Screening for human papillomavirus (HPV); Irregular menstrual bleeding; Routine screening for STI (sexually transmitted infection) Start: 07-10-2024 End: 07-10-2024 Patient encounter status Jason Paredes MD Work Phone: [facility] Start: 06-28-2024 End: 07-05-2024 ambulatory [facility] Facility:[facility] Start: 06-24-2024 End: 06-25-2024 Telephone encounter Jessica Guerrero APRN.SUPERVISOR [employer]IC[employer]UCATION Work Phone: Internal Medicine [place] Comment on above: diabetic supplies Start: 06-17-2024 End: 06-17-2024 Telephone encounter Kvng Lewis MD Work Phone: Endocrinology Comment on above: Forms Start: 06-07-2024 ambulatory Kenyetta Suarez Facility:[facility] Start: 06-07-2024 End: 06-11-2024 Evaluation and management of inpatient John Knapp Facility:[facility] Start: 05-28-2024 End: 06-27-2024 ambulatory [facility] Facility:[facility] Start: 05-21-2024 End: 05-27-2024 ambulatory [facility] Facility:[facility] Start: 05-16-2024 End: 05-24-2024 Telephone encounter Jessica Guerrero APRN.SUPERVISOR [employer]UCATION Work Phone: Endocrinology Comment on above: insulin pump Start: 05-06-2024 End: 05-06-2024 Telephone encounter Leesa Huddleston PA-C Work Phone: [facility] Dermatology Comment on above: Prior Authorization (Skyrizi renewal) Start: 04-21-2024 End: 04-21-2024 Emergency department patient visit No Primary Care Physician Facility:[facility] Start: 04-16-2024 End: 04-16-2024 Refill Leesa Huddleston PA-C Work Phone: [facility] Dermatology Start: 04-08-2024 Refill Jessica Guerrero APRN.SUPERVISOR AGRICULTURAL EDUCATION Work Phone: Internal Medicine [place] Comment on above: Refill Request Start: 03-12-2024 End: 03-12-2024 ambulatory [facility] Facility:[facility] Start: 03-12-2024 End: 03-12-2024 Patient encounter [...] Telephone encounter Leesa Huddleston PA-C Work Phone: [facility] Dermatology Comment on above: Medication Problem ( Skyrizi) Start: 12-15-2023 ambulatory Kyara Wu Home Care Giver Comment on above: Primary Care Coordin ator Chronic Care Start: 12-13-2023 End: 12-13-2023 ambulatory [facility] Facility:[facility] Start: 12-13-2023 End: 12-13-2023 Patient encounter procedure Jessica Guerrero APRN.CNP Work Phone: Endocrinology Comment on above: Type 1 diabetes kasi itus with hyperglycemia, with long-term current use of insulin (HCC) (Primary Dx); Insulin pump status Start: 12-07-2023 End: 12-07-2023 Emergency department patient visit No Primary Care Physician [facility]Emergency Department Work Phone: Start: 11-14-2023 End: 11-14-2023 Office outpatient visit 15 minutes Leesa Huddleston PA-C Work Phone: [facility] Dermatology Comment on above: Psoriasis vulgaris ( Primary Dx); Multiple benign nevi Start: 11-10-2023 Patient Outreach Kyara Wu Home Care Giver Comment on above: Transition Of Care Start: 11-03-2023 Patient Outreach Kyara Wu Home Care Giver Comment on above: Transition Of Care Start: 10-27-2023 Patient Outreach [facility] Comment on above: Transition Of Care Start: 10-25-2023 End: 10-25-2023 Emergency department patient visit No Primary Care Physician [facility] Work Phone: Start: 10-20-2023 Patient Outreach [facility] Comment on above: Transition Of Care Start: 10-19-2023 Patient Outreach [facility] Comment on above: Transition Of Care ( Message) Start: 10-18-2023 Non-patient / Non-visit No [facility] Physician [facility] Inpatient Physicians Work Phone: Start: 10-17-2023 End: 10-18-2023 Evaluation and management of inpatient No Primary Care Physician [facility] Work Phone: Start: 10-12-2023 ambulatory [facility] Comment on above: Primary Care Coordin ator Chronic Care Start: 10-02-2023 Telephone encounter Kvng Brink MD Work Phone: Endocrinology Comment on above: Forms (DME: [employer] for pump supplies) Start: 09-29-2023 ambulatory Kyara Wu Home Care Giver Comment on above: Primary Care Coordin ator Chronic Care Start: 09-25-2023 End: 09-25-2023 Emergency department patient visit No Primary Care Physician [facility] Work Phone: Start: 09-24-2023 End: 09-24-2023 Emergency department patient visit No [facility] Work Phone: Start: 09-21-2023 Refill Vivi Smith MD Work Phone: Internal Medicine [place] Comment on above: Refill Request Start: 09-20-2023 End: 09-20-2023 Emergency department patient visit No [facility] Work Phone: Start: 09-06-2023 End: 09-06-2023 Emergency department patient visit No Primary Care Physician [facility] Work Phone: Start: 08-22-2023 End: 08-22-2023 Emergency department patient visit No Primary Care Physician [facility] Work Phone: Start: 08-17-2023 Telephone encounter Leesa Huddleston PA-C Work Phone: [facility] Dermatology Start: 08-15-2023 Patient Outreach Kyara garza RN [facility] Home Care Giver Comment on above: Transition Of Care Start: 08-10-2023 Non-patient / Non-visit No Elaine caal [facility] Physician [facility] Inpatient Physicians Work Phone: Start: 08-09-2023 Non-patient / Non-visit No Elaine caal [facility] Physician [facility] Inpatient Physicians Work Phone: Start: 08-08-2023 Non-patient / Non-visit No Elaine caal [facility] Physician [facility] Inpatient Physicians Work Phone: Start: 08-07-2023 End: 08-10-2023 Evaluation and management of inpatient No [facility] Work Phone: Start: 08-06-2023 End: 08-06-2023 Emergency department patient visit No Primary Care Physician [facility] Work Phone: Start: 06-25-2023 End: 06-26-2023 Emergency department patient visit No Primary Care Physician [facility]Emer[facility] Work Phone: Start: 06-25-2023 End: 06-25-2023 Emergency department patient visit No Primary Care Physician [facility] Work Phone: Start: 05-31-2023 End: 05-31-2023 Patient encounter procedure Jessica Josue HICKSN.SUPERVISOR AGRICULTURAL EDUCATION Work Phone: Endocrinology Comment on above: Type 1 diabetes kasi itus with hyperglycemia, with long-term current use of insulin (HCC) (Primary Dx); Insulin pump status Start: 05-03-2023 End: 05-03-2023 Emergency department patient visit No Primary Care Physician [facility] Work Phone: Start: 05-02-2023 Enedina swain PA-C Work Phone: [facility] Dermatology Comment on above: Psoriasis vulgaris ( Primary Dx) Start: 04-29-2023 Non-patient / Non-visit No [facility] Physician [facility] Inpatient Physicians Work Phone: Start: 04-28-2023 Non-patient / Non-visit No [facility] Physician [facility] Inpatient Physicians Work Phone: Start: 04-27-2023 Non-patient / Non-visit No [facility] Physician [facility] Inpatient Physicians Work Phone: Start: 04-27-2023 End: 04-29-2023 Evaluation and management of inpatient [facility] Surgical 3 Work Phone: Start: 04-27-2023 End: 04-29-2023 observation encounter No Primary Care Physician [facility] Work Phone: Start: 04-26-2023 End: 04-26-2023 Emergency department patient visit [facility]Emer[facility] Work Phone: Start: 04-23-2023 End: 04-23-2023 Emergency department patient visit [facility]Emer[facility] Work Phone: Start: 04-06-2023 End: 04-06-2023 Emergency department patient visit VIVI SMITH Facility:[id number] Start: 03-20-2023 End: 03-22-2023 ambulatory BENITO JEWELL [facility] Start: 03-20-2023 End: 03-22-2023 Emergency department patient visit Mariel Gagnon MD Work Phone: [facility] Start: 02-15-2023 Patient encounter procedure [facility] Provider [facility] Department Start: 02-08-2023 Patient Outreach Kyara garza RN [facility] Home Care Giver Comment on above: Transition Of Care Start: 02-01-2023 Telephone encounter Vivi Smith MD Work Phone: [facility] Primary Comment on above: Results Start: 01-31-2023 End: 02-04-2023 Evaluation and management of inpatient VIVI SMITH Facility:[id number] Start: 01-25-2023 End: 01-25-2023 ambulatory VIVI SMITH Facility:[id number] Start: 01-25-2023 End: 01-25-2023 Patient encounter procedure Autumn Valadez APRN.CNP Work Phone: Endocrinology Comment on above: Type 1 diabetes kasi itus with hyperglycemia, with long-term current use of insulin (HCC) (Primary Dx); Insulin pump status; Screening for diabetic retinopathy Start: 01-25-2023 End: 01-25-2023 Nursing evaluation of patient and report Nurse Laura Rg Work Phone: [facility] Primary Comment on above: Left flank pain (Elaine ten Dx); Dysuria Start: 01-24-2023 Telephone encounter Vivi Smith MD Work Phone: [facility] Primary Comment on above: Orders Results Appointment Start: 01-20-2023 End: 01-20-2023 ambulatory VIVI SMITH Facility:[id number] Start: 01-12-2023 End: 01-13-2023 ambulatory MADONNA TORO Facility:[id number] Start: 01-09-2023 E-mail encounter mario m caregiver Phoebe Mckeon FAMILY PROGRAM SPECIALIST.SUPERVISOR AGRICULTURAL EDUCATION Work Phone: [facility] Start: 01-09-2023 Patient encounter procedure Phoebe Fisherlorenaloni FAMILY PROGRAM SPECIALIST.SUPERVISOR AGRICULTURAL EDUCATION Work Phone: Obstetrics and Gynecology Comment on above: Request an Appointme nt Start: 01-03-2023 Telephone encounter Kvng Brink MD Work Phone: Endocrinology Comment on above: Forms Start: 12-09-2022 Telephone encounter Vivi Smith MD Work Phone: [facility] Primary Comment on above: Patient Question Start: 12-08-2022 End: 12-08-2022 Office outpatient new 30 minutes Vivi Smith MD Work Phone: [facility] Primary Comment on above: Gastroparesis due to DM (HCC) (Primary Dx); Aortic root aneurysm (HCC); Primary hypertension; Chronic nausea; 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); Marfan syndrome; PTSD (post-traumatic stress disorder); Generalized abdominal pain Start: 11-07-2022 End: 11-07-2022 Patient encounter procedure Abelardo La MD Work Phone: [facility] [place] Comment on above: Viral conjunctivitis (Primary Dx) Start: 11-04-2022 Refill Leesatavares swain PA-C Work Phone: [facility] Start: 11-02-2022 Telephone encounter Kvng Brink MD Work Phone: Endocrinology Comment on above: Forms Start: 10-31-2022 Telephone encounter Kvng Brink MD Work Phone: Endocrinology Comment on above: Insurance Authorizat ion; Forms Start: 10-22-2022 End: 10-22-2022 Patient encounter procedure Abelardo La MD Work Phone: [facility] Comment on above: Lower abdominal pain (Primary Dx) Start: 10-04-2022 End: 10-04-2022 Office outpatient visit 25 minutes Leesa Huddleston PA-C Work Phone: Dermatology [place] Comment on above: Psoriasis vulgaris ( Primary Dx); Folliculitis; Encounter for long-term current use of high risk medication; Screening for viral disease Start: 09-19-2022 End: 09-19-2022 ambulatory [facility] Comment on above: Type 1 diabetes kasi itus with other specified complication (HCC) (Primary Dx) Start: 09-06-2022 Telephone encounter Autumn peralta APRN.SUPERVISOR AGRICULTURAL EDUCATION Work Phone: Endocrinology Comment on above: Medication Problem Start: 08-16-2022 End: 08-16-2022 Patient encounter procedure Autumn Valadez APRN.SUPERVISOR AGRICULTURAL EDUCATION Work Phone: Endocrinology Comment on above: Type 1 diabetes kasi itus with hyperglycemia, with long-term current use of insulin (HCC) (Primary Dx); Insulin pump status Start: 08-05-2022 End: 08-05-2022 ambulatory [facility] Comment on above: Type 1 [...] Kvng Lewis MD Work Phone: [facility] Start: 07-06-2022 Telephone encounter Kvng Brink MD Work Phone: Endocrinology Comment on above: Appointment Start: 06-13-2022 Telephone encounter Tawanda soto DO Work Phone: Endocrinology Comment on above: Rodrigue MONIQUE for insu marci pump/pump supplies Start: 06-07-2022 End: 06-07-2022 Patient encounter procedure Phoebe Mckeon FAMILY PROGRAM SPECIALIST.SUPERVISOR AGRICULTURAL EDUCATION Work Phone: Obstetrics and Gynecology Comment on above: Gonorrhea (Primary D x); Screen for sexually transmitted diseases Start: 06-07-2022 Telephone encounter Cyndy walker MD Work Phone: Endocrinology Comment on above: Forms ([employer]) Start: 05-13-2022 ambulatory Tawanda Khoury DO Work Phone: Endocrinology Comment on above: Pump Data/30 day glu cose logs Start: 05-13-2022 E-mail encounter mario m caregiver Tawanda Khoury DO Work Phone: [facility] Start: 05-12-2022 End: 05-12-2022 Nursing evaluation of patient and report Nurse Screw Machine Repairer [facility] Work Phone: Obstetrics and Gynecology Comment on above: Gonorrhea (Primary D x) Start: 05-10-2022 ambulatory Phoebe eid FAMILY PROGRAM SPECIALIST.SUPERVISOR AGRICULTURAL EDUCATION Work Phone: Obstetrics and Gynecology Comment on above: Question regarding S YPHILIS TOTAL W/REFLEX Start: 05-10-2022 Telephone encounter Phoebe Raya FAMILY PROGRAM SPECIALIST.SUPERVISOR AGRICULTURAL EDUCATION Work Phone: Obstetrics and Gynecology Comment on above: Results; Orders Start: 05-02-2022 Refill Tawanda Khoury DO Work Phone: Endocrinology Comment on above: Refill Request Refill Request (Marciz ess) Start: 04-18-2022 End: 04-18-2022 Patient encounter procedure Dashawn Cain FAMILY PROGRAM SPECIALIST.SUPERVISOR AGRICULTURAL EDUCATION Work Phone: [facility] Comment on above: Menstrual irregulari ty (Primary Dx); Screening for STD (sexually transmitted disease); Chronic nausea Start: 03-11-2022 End: 03-11-2022 ambulatory Chair 9 [facility] Comment on above: Type 1 diabetes kasi itus with other specified complication (HCC) (Primary Dx) Start: 03-10-2022 Refill Dashawn Cain APRN.SUPERVISOR AGRICULTURAL EDUCATION Work Phone: [facility] Start: 03-07-2022 End: 03-07-2022 ambulatory Injection/Port [facility]fusion [place] Comment on above: Type 1 diabetes kasi itus with other specified complication (HCC) (Primary Dx) Start: 03-01-2022 Chart abstracting Jayjay cobb MD Work Phone: Infusion Center Start: 01-29-2022 End: 01-29-2022 Subsequent hospital visit by physician Sourav Butts MD Work Phone: [facility] Comment on above: DKA,TYPE 1 Start: 01-27-2022 End: 01-27-2022 Subsequent hospital visit by physician Dashawn Cain APRN.SUPERVISOR AGRICULTURAL EDUCATION Work Phone: [facility] Comment on [...] Emergency department patient visit ANITA COMER MD [facility] Start: 12-27-2021 End: 12-27-2021 Subsequent hospital visit by physician Latosha MARTINEZ [facility] Comment on above: VOMITTING/CFD/TRIAGE Start: 12-25-2021 Telephone encounter Velia caballero MD Work Phone: [facility] Adult Comment on above: Patient Question Start: 12-06-2021 Telephone encounter Twaanda Keller rst DO Work Phone: Endocrinology Comment [...] 02-24-2017 Emergency department patient visit [facility] Start: 12-05-2014 Patient encounter status [facility] Provider [facility] Procedures Date Procedure Procedure Detail Performing Clinician Start: 11-11-2024 Radiologic exam abdo men 1 view Leticia Hylton DO Work Phone: Start: 07-10-2024 Microscopic observat ion [Identifier] in Cervix by Cyto stain Manasa Cantu PA-C Work Phone: Start: 03-12-2024 Hemoglobin A1c/Hemoglobin.total in Blood Kvng Lewis MD Work Phone: Start: 12-13-2023 Hemoglobin A1c/Hemoglobin.total in Blood Jessica Motley FAMILY PROGRAM SPECIALIST.SUPERVISOR AGRICULTURAL EDUCATION Work Phone: Start: 09-24-2023 Plain chest X-ray [...] Start: 05-31-2023 Hemoglobin A1c/Hemoglobin.total in Blood Jessica Motley FAMILY PROGRAM SPECIALIST.SUPERVISOR AGRICULTURAL EDUCATION Work Phone: Start: 04-28-2023 Urine culture No [...] MD Work Phone: Start: 03-20-2023 Glucose measurement [facility] tammy Ireland MD Work Phone: Start: 03-20-2023 Ecg routine ecg w/le ast 12 lds w/i&r Mary Jennifer Mesa PA-C Work Phone: Start: 03-20-2023 Basic metabolic pane l calcium total Mary Jennifer Mesa PA-C Work Phone: Start: 03-20-2023 Ct angiography chest w/contrast/noncontrast Mariel Gagnon MD Work Phone: Start: 03-20-2023 Electrocardiogram Mariel Gagnon MD Work Phone: Start: 03-20-2023 Urnls [...] 01-25-2023 Hemoglobin A1c/Hemoglobin.total in Blood 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SUPERVISOR AGRICULTURAL EDUCATION Work Phone: Start: 01-25-2023 Urnls dip stick/tabl et rgnt auto w/o microscopy Vivi Smith MD Work Phone: Start: 08-16-2022 Hemoglobin A1c/Hemoglobin.total in Blood 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SUPERVISOR AGRICULTURAL EDUCATION Work Phone: Start: 05-10-2022 Microscopic observat ion [...] for Adults (1 - 1-dose 75+ series) [facility] Start: 2054 RSV Immunization aged 60 or older (1 - 1-dose 60+ series) RSV Immunization aged 60 or older (1 - 1-dose 60+ series) [facility] Start: 2044 Zoster Vaccines (1 of 2) Zoster Vaccines (1 of 2) [facility] Start: 07-10-2029 Screening for malignant neoplasm of cervix Cervical Cancer Screening [facility] Start: 07-10-2027 Screening for malignant neoplasm of cervix [facility] Start: 02-04-2026 End: 02-04-2026 Patient encounter procedure 02/04/2026 10:00 AM EDT Office Visit [facility] Dermatology - [place] [address] [place] [id number] Mishel Ortez PA-C [address] [place] [address] [facility] - [place] Start: 11-11-2025 BP Controlled (<130/80) BP Controlled (<130/80) [facility] Start: 07-30-2025 End: 07-30-2025 Patient encounter procedure 07/30/2025 9:20 AM EST Office Visit [facility] Dermatology [place] [address] [place] [phone] Mishel Ortez PA-C [address] [place] [address] [facility] - [place] Start: 07-14-2025 End: 07-14-2025 Patient encounter procedure 07/14/2025 10:30 AM EST Office Visit OB/Gynecology [address] [place], [place] [id number] Jason Paredes MD [address] [place], [place] [address] Annual OB/Gynecology Comment on above: Annual Start: 07-10-2025 BP Controlled (<130/80) BP Controlled (<130/80) [facility] Start: 05-10-2025 PAP TESTING PAP TESTING [facility] Start: 05-10-2025 Screening for malignant neoplasm of cervix [facility] Start: 04-28-2025 Influenza vaccination Influenza Vaccine (Season Ended) [facility] Start: 03-12-2025 BP Controlled (<130/80) BP Controlled (<130/80) [facility] Start: 03-12-2025 Hemoglobin A1c measurement Diabetes: Hemoglobin A1C [facility] Start: 01-27-2025 End: 01-27-2026 CBC W Auto Differential panel - Blood CBC auto differential Lab Routine Encounter for long-term (current) use of medications Expected: 01/27/2025 (Approximate), Expires: 01/27/2026 [facility] Work Phone: Comment on above: Expected: 01/27/2025 (Approximate), Expi res: 01/27/2026 Start: 01-27-2025 End: 01-27-2026 Comprehensive metabolic 1998 panel - Serum or Plasma Comprehensive metabolic panel Lab Routine Encounter for long-term (current) use of medications Expected: 01/27/2025 (Approximate), Expires: 01/27/2026 [facility] Comment on above: Expected: 01/27/2025 (Approximate), Expi res: 01/27/2026 Start: 01-27-2025 End: 01-27-2026 Hepatitis A virus IgM Ab [Presence] in Serum or Plasma by Immunoassay Hepatitis A antibody, IgM Lab Routine Screening for viral disease Encounter for long-term (current) use of medications Expected: 01/27/2025 (Approximate), Expires: 01/27/2026 [facility] Comment on above: Expected: 01/27/2025 (Approximate), Expi res: 01/27/2026 Start: 01-27-2025 End: 01-27-2026 Hepatitis B virus core IgM Ab [Presence] in Serum or Plasma by Immunoassay Hepatitis B core antibody, IgM Lab Routine Screening for viral disease Encounter for long-term (current) use of medications Expected: 01/27/2025 (Approximate), Expires: 01/27/2026 [facility] Comment on above: Expected: 01/27/2025 (Approximate), Expi res: 01/27/2026 Start: 01-27-2025 End: 01-27-2026 Hepatitis B virus surface Ab [Units/volume] in Serum or Plasma by Immunoassay Hepatitis B surface antibody Lab Routine Screening for viral disease Encounter for long-term (current) use of medications Expected: 01/27/2025 (Approximate), Expires: 01/27/2026 [facility] Comment on above: Expected: 01/27/2025 (Approximate), Expi res: 01/27/2026 Start: 01-27-2025 End: 01-27-2026 Hepatitis B virus surface Ag [Presence] in Serum or Plasma by Immunoassay Hepatitis B surface antigen Lab Routine Screening for viral disease Encounter for long-term (current) use of medications Expected: 01/27/2025 (Approximate), Expires: 01/27/2026 [facility] Comment on above: Expected: 01/27/2025 (Approximate), Expi res: 01/27/2026 Start: 01-27-2025 End: 01-27-2026 Hepatitis C virus Ab [Presence] in Serum or Plasma by Immunoassay Hepatitis C antibody Lab Routine Screening for viral disease Encounter for long-term (current) use of medications Expected: 01/27/2025 (Approximate), Expires: 01/27/2026 [facility] Comment on above: Expected: 01/27/2025 (Approximate), Expi res: 01/27/2026 Start: 01-27-2025 End: 01-27-2026 HIV 1+2 Ab+HIV1 p24 Ag [Presence] in Serum or Plasma by Immunoassay HIV-1 and HIV-2 Antigen-Antibody Screen Lab Routine Screening for viral disease Encounter for long-term (current) use of medications Expected: 01/27/2025 (Approximate), Expires: 01/27/2026 [facility] Comment on above: Expected: 01/27/2025 (Approximate), Expi res: 01/27/2026 Start: 01-27-2025 End: 01-27-2026 QUANTIFERON TB GOLD QUANTIFERON TB GOLD Lab Routine Encounter for screening for respiratory tuberculosis Encounter for long-term (current) use of medications Expected: 01/27/2025 (Approximate), Expires: 01/27/2026 [facility] Comment on above: Expected: 01/27/2025 (Approximate), Expi res: 01/27/2026 Start: 01-27-2025 End: 01-27-2025 Patient encounter procedure 01/27/2025 1:00 PM EDT Office [facility] [address] [place] [phone] Mishel Ortez PA-C [address] [place] [address] [facility] - [place] Start: 01-06-2025 End: 01-06-2025 Patient encounter procedure 01/06/2025 1:00 PM EDT Office [facility] [address] [place] [phone] Gardenia Reyes PA-C [address] [place] [address] [facility] - [place] Start: 12-12-2024 Hemoglobin A1c measurement Diabetes: Hemoglobin A1C [facility] Start: 11-11-2024 End: 11-11-2024 Patient encounter procedure 11/11/2024 10:30 AM EDT Office Visit Gastroenterology [address] [place] [address] Leticia Hylton DO [address] [place] [address] eating issues/gp Gastroenterology Comment on above: eating issues/gp Start: 09-12-2024 BP Controlled (<130/80) BP Controlled (<130/80) [facility] Start: 09-12-2024 Hemoglobin A1c measurement [facility] Start: 09-03-2024 End: 09-03-2024 Patient encounter procedure 09/03/2024 11:30 AM EST Office Visit Endocrinology [address] [place] [address] Jessica Guerrero APRN.SUPERVISOR AGRICULTURAL EDUCATION [address] [place] [address] 6 month follow up Endocrinology Comment on above: 6 month follow up Start: 09-02-2024 End: 09-02-2024 ambulatory 09/02/2024 9:30 AM EST [facility] [address] [place] [address] Leticia Hylton DO [address] [place] [address] gp f/u Gastroenterology Comment on above: gp f/u Start: 08-28-2024 Medicare Advantage Annual Wellness Visit Medicare Advantage Annual Wellness Visit [facility] Start: 08-15-2024 Diabetes: Estimated Glomerular Filtration Rate for Kidney Health Diabetes: Estimated Glomerular Filtration Rate for Kidney Health [facility] Start: 08-06-2024 End: 08-06-2024 Patient encounter procedure [facility] Start: 2024 Screening for malignant neoplasm of cervix HPV/Cotest [facility] Start: 07-23-2024 End: 07-23-2024 Nursing evaluation of patient and report 07/23/2024 9:00 AM EST Nurse Visit Endocrinology [address] [place] [address] Vamsi Carson, RN [address] [id number] Type 1 diabetes mellitus with hyperglycemia, with [...] Insulin pump status Expected: 07/19/2024, Expires: 10/18/2024 [facility] Work Phone: Comment on above: Expected: 07/19/2024, Expires: Start: 07-19-2024 End: 10-18-2024 Hemoglobin A1c in Blood HEMOGLOBIN A1C Lab Routine Type 1 diabetes mellitus with hyperglycemia, with long-term current use of insulin (HCC) Insulin pump status Expected: 07/19/2024, Expires: 10/18/2024 [facility] Comment on above: Expected: 07/19/2024, Expires: 5 Start: 07-19-2024 End: 10-18-2024 Lipid 1996 panel - Serum or Plasma LIPID PANEL BASIC Lab Routine Type 1 diabetes mellitus with hyperglycemia, with long-term current use of insulin (HCC) Insulin pump status Expected: 07/19/2024, Expires: 10/18/2024 [facility] Comment on above: Expected: 07/19/2024, Expires: 5 Start: 07-19-2024 End: 10-18-2024 Microalbumin/Creatinine [Mass Ratio] in Urine ALBUMIN/CREATININE RATIO, URINE Lab Routine Type 1 diabetes mellitus with hyperglycemia, with long-term current use of insulin (HCC) Insulin pump status Expected: 07/19/2024, Expires: 10/18/2024 [facility] Comment on above: Expected: 07/19/2024, Expires: 5 Start: 07-19-2024 End: 07-19-2024 ambulatory 07/19/2024 1:30 PM EST [facility] Endocrinology [address] [place] [address] Jessica Guerrero APRN.SUPERVISOR [employer]UCATION [address] [place] [address] follw up Endocrinology Comment on above: follw up Start: 07-10-2024 End: 10-09-2024 Hepatitis C virus RNA [Units/volume] (viral load) in Serum or Plasma by DANIEL with probe detection [facility] Comment on above: Expected: 07/10/2024, Expires: Start: 07-10-2024 End: 10-09-2024 HIV 1+2 Ab [Presence] in Serum or Plasma by Immunoassay [facility] Work Phone: Comment on above: Expected: 07/10/2024, Expires: 5 Start: 07-10-2024 End: 10-09-2024 SYPHILIS TREPONEMAL W/REFLEX [facility] Comment on above: Expected: 07/10/2024, Expires: 5 Start: 07-10-2024 End: 10-09-2024 Thyrotropin [Units/volume] in Serum or Plasma [facility] Comment on above: Expected: 07/10/2024, Expires: 5 Start: 07-10-2024 End: 07-10-2024 Patient encounter procedure 07/10/2024 11:10 AM EST Office Visit OB/Gynecology [address] [place] [place] [id number] Jason Paredes MD [address] [place] [address] Annual/ Referral in Scan Doc OB/Gynecology Comment on above: Annual/ Referral in Scan Doc Start: 06-13-2024 End: 06-13-2024 Patient encounter procedure 06/13/2024 3:00 PM EDT Office Visit Endocrinology [address] [facility] [place] [address] Jessica Guerrero, ESTEFANIA.SUPERVISOR [employer]UCATION [address] [facility] [place] [address] 6 month follow up Endocrinology Comment on above: 6 month follow up Start: 06-13-2024 Hemoglobin A1c measurement HbA1C [facility] Start: 06-12-2024 Hemoglobin A1c measurement HbA1C [facility] Start: 05-31-2024 BP Controlled (<130/80) BP Controlled (<130/80) [facility] in Start: 05-31-2024 Hemoglobin A1c measurement Diabetes: Hemoglobin A1C [facility] Start: 05-28-2024 End: 05-28-2024 Patient encounter procedure 05/28/2024 11:30 AM EDT Office Visit Endocrinology [address] [place] [address] Jessica Guerrero, FAMILY PROGRAM SPECIALIST.SUPERVISOR AGRICULTURAL EDUCATION [address] [facility] [place] [address] 2-3 month f/u Endocrinology Comment on above: 2-3 month f/u Start: 04-28-2024 COVID-19 Vaccine ( season) COVID-19 Vaccine ( season) [facility] Start: 04-28-2024 Covid-19 Vaccine ( season) Covid-19 Vaccine ( season) [facility] Start: 04-28-2024 Influenza vaccination [facility] Start: 04-16-2024 DTaP/Tdap/Td Vaccines (3 - Td or Tdap) DTaP/Tdap/Td Vaccines (3 - Td or Tdap) [facility] Start: 04-16-2024 Urine microalbumin profile [facility] Start: 03-12-2024 Hemoglobin A1c measurement HbA1C [facility] Start: 03-12-2024 End: 03-12-2024 Patient encounter procedure 03/12/2024 2:00 PM EDT Office Visit Endocrinology [address] [facility] [place] [address] Kvng Lewis MD [address] [place] [address] follow up Endocrinology Comment on above: follow up Start: 02-08-2024 BP CONTROLLED (<130/80) BP CONTROLLED (<130/80) [facility] Start: 02-01-2024 End: 02-01-2024 Patient encounter procedure 02/01/2024 10:00 AM EDT Office Visit [facility] Dermatology [address] [place] [id number] Leesa Huddleston PA-C [address] [place] [address] [facility] Start: 01-26-2024 BP CONTROLLED (<130/80) BP CONTROLLED (<130/80) [facility] Start: 01-21-2024 ANNUAL PCP TEAM CHRONIC DISEASE VISIT ANNUAL PCP TEAM CHRONIC DISEASE VISIT [facility] Start: 01-21-2024 BP CONTROLLED (<130/80) BP CONTROLLED (<130/80) [facility] Start: 12-09-2023 ANNUAL PCP TEAM CHRONIC DISEASE VISIT ANNUAL PCP TEAM CHRONIC DISEASE VISIT [facility] Start: 11-30-2023 Hemoglobin A1c measurement HbA1C [facility] Start: 11-30-2023 Hemoglobin A1c/Hemoglobin.total in Blood HbA1C [facility] Start: 11-14-2023 End: 11-14-2023 Patient encounter procedure 11/14/2023 10:20 AM EDT Office Visit [facility] Dermatology [address] [place] [phone] Leesa Huddleston PA-C [address] [place] [address] [facility] Start: 11-08-2023 BP CONTROLLED (<130/80) BP CONTROLLED (<130/80) [facility] Start: 10-25-2023 [facility] Start: 02-28-2024 Suicide precautions [facility] Start: 10-18-2023 Patient discharge [facility] Start: 10-17-2023 [facility] Start: 10-17-2023 Venous catheter care management [facility] Start: 10-17-2023 Assessment of risk of venous thromboembolism [facility] Start: 10-17-2023 Continuous pulse oximetry [facility] Start: 10-17-2023 Insertion of catheter into peripheral vein [facility] Start: 10-17-2023 Measuring intake and output [facility] Start: 10-17-2023 Notification of physician [facility] Start: 10-17-2023 Patient education [facility] Start: 10-17-2023 Patient referral to dietitian [facility] Start: 10-17-2023 Providing care according to standard [facility] Start: 10-17-2023 Referral to occupational therapist [facility] Start: 10-17-2023 Referral to service [facility] Start: 10-17-2023 Vital signs measurements [facility] Start: 10-17-2023 [facility] Start: 10-17-2023 Verification routine [facility] Start: 10-17-2023 Admission procedure [facility] Start: 10-17-2023 Hospital admission, emergency, from emergency room, medical nature [facility] Start: 10-17-2023 [facility] Start: 09-25-2023 Venous catheter care management [facility] Start: 09-25-2023 [facility] Start: 09-20-2023 [facility] Start: 09-06-2023 Venous catheter care management [facility] Start: 09-06-2023 [facility] Start: 08-28-2023 Behavioral Health Screening Behavioral Health Screening [facility] Start: 08-28-2023 Depression Assessment Depression Assessment [facility] Start: 08-28-2023 Medicare Advantage Annual Wellness Visit Medicare Advantage Annual Wellness Visit [facility] Start: 08-22-2023 [facility] Start: 08-22-2023 [facility] Start: 08-22-2023 Venous catheter care management [facility] Start: 08-16-2023 3 comp foot exam completed DIABETIC FOOT EXAM [facility] Start: 08-16-2023 BP CONTROLLED (<130/80) BP CONTROLLED (<130/80) [facility] Start: 08-16-2023 Diabetic foot examination Diabetic Foot Exam [facility] Start: 08-15-2023 End: 08-15-2023 Patient encounter procedure [facility] Start: 08-10-2023 Patient discharge [facility] Start: 08-10-2023 End: 08-10-2023 [facility] Start: 08-09-2023 Care planning and problem solving actions [facility] Start: 08-09-2023 Provision of activity privileges [facility] Start: 08-08-2023 [facility] Start: 08-08-2023 Blood chemistry [facility] Start: 08-08-2023 [facility] Start: 08-07-2023 Care planning and problem solving actions [facility] Start: 08-07-2023 Blood chemistry [facility] Start: 08-07-2023 Blood chemistry [facility] Start: 08-07-2023 Care planning and problem solving actions [facility] Start: 08-07-2023 Blood chemistry [facility] Start: 08-07-2023 Blood chemistry [facility] Start: 08-07-2023 Acetone [Presence] in Serum or Plasma [facility] Start: 08-07-2023 Gas panel - Arterial blood [facility] Start: 08-07-2023 Blood chemistry [facility] Start: 08-07-2023 Application of intermittent pneumatic compression device [facility] Start: 08-07-2023 Enteric precautions [facility] Start: 08-07-2023 Following clinical pathway protocol [facility] Start: 08-07-2023 Hemoglobin A1c/Hemoglobin.total in Blood [facility] Start: 08-07-2023 Lab findings surveillance [facility] Start: 08-07-2023 Notification of physician [facility] Start: 08-07-2023 Patient education [facility] Start: 08-07-2023 Taking nasal swab [facility] Start: 08-07-2023 Vital signs measurements [facility] Start: 08-07-2023 [facility] Start: 08-07-2023 Aspiration precautions [facility] Start: 08-07-2023 Blood chemistry [facility] Start: 08-07-2023 Admission procedure [facility] Start: 08-06-2023 Venous catheter care management [facility] Start: 08-06-2023 Gas panel - Venous blood [facility] Start: 08-06-2023 [facility] Start: 08-06-2023 Venous catheter care management [facility] Start: 07-27-2023 Hemoglobin A1c/Hemoglobin.total in Blood HBA1C [facility] Start: 06-26-2023 Venous catheter care management [facility] Start: 06-26-2023 [facility] Start: 06-25-2023 End: 06-25-2023 [facility] Start: 06-07-2023 BP CONTROLLED (<130/80) BP CONTROLLED (<130/80) [facility] Start: 05-10-2023 BP CONTROLLED (<130/80) BP CONTROLLED (<130/80) [facility] in Start: 05-06-2023 Blood chemistry [facility] Start: 05-05-2023 Blood chemistry [facility] Start: 05-04-2023 Blood chemistry [facility] Start: 05-03-2023 Venous catheter care management [facility] Start: 05-03-2023 Blood chemistry [facility] Start: 05-02-2023 Blood chemistry [facility] Start: 05-01-2023 Blood chemistry [facility] Start: 04-30-2023 Blood chemistry [facility] Start: 04-29-2023 Patient discharge [facility] Start: 04-29-2023 Venous catheter care management [facility] Start: 04-28-2023 Care regimes management [facility] Start: 04-28-2023 Notification of physician [facility] Start: 04-28-2023 End: 04-28-2023 [facility] Start: 04-28-2023 Covid-19 Vaccine () Covid-19 Vaccine () [facility] Start: 04-28-2023 Influenza vaccination [facility] Start: 04-28-2023 Urine culture Urine Culture [facility] Start: 04-28-2023 [facility] Start: 04-27-2023 Following clinical pathway protocol [facility] Start: 04-27-2023 Ambulation without limitation [facility] Start: 04-27-2023 Assessment of risk of venous thromboembolism [facility] Start: 04-27-2023 Insertion of catheter into peripheral vein [facility] Start: 04-27-2023 Providing care according to standard [facility] Start: 04-27-2023 [facility] Start: 04-27-2023 Verification routine [facility] Start: 04-27-2023 Admission procedure [facility] Start: 04-27-2023 [facility] Start: 04-27-2023 Venous catheter care management [facility] Start: 04-27-2023 Consultation [facility] Start: 04-27-2023 Patient referral to dietitian [facility] Start: 04-23-2023 Venous catheter care management [facility] Start: 04-18-2023 Adult depression screening assessment DEPRESSION SCREENING [facility] Start: 04-18-2023 ANNUAL PCP TEAM CHRONIC DISEASE VISIT ANNUAL PCP TEAM CHRONIC DISEASE VISIT [facility] Start: 04-18-2023 BP CONTROLLED (<130/80) BP CONTROLLED (<130/80) [facility] in Start: 02-14-2023 Hemoglobin A1c/Hemoglobin.total in Blood HBA1C [facility] Start: 01-25-2023 End: 03-27-2023 ALBUMIN/CREAT RATIO RND UR ALBUMIN/CREAT RATIO RND UR Lab Routine Type 1 diabetes mellitus with hyperglycemia, with long-term current use of insulin (HCC) Expected: 01/25/2023, Expires: 03/27/2023 [facility] Work Phone: Comment on above: Expected: 01/25/2023, Expires: Start: 10-04-2022 End: 10-04-2023 CBC W Auto Differential panel - Blood CBC auto differential Lab Routine Psoriasis vulgaris Encounter for long-term current use of high risk medication Expected: 10/04/2022 (Approximate), Expires: 10/04/2023 [facility] Work Phone: Comment on above: Expected: 10/04/2022 (Approximate), Expi res: 10/04/2023 Start: 10-04-2022 End: 10-04-2023 Comprehensive metabolic 1998 panel - Serum or Plasma Comprehensive metabolic panel Lab Routine Psoriasis vulgaris Encounter for long-term current use of high risk medication Expected: 10/04/2022 (Approximate), Expires: 10/04/2023 [facility] Comment on above: Expected: 10/04/2022 (Approximate), Expi res: 10/04/2023 Start: 10-04-2022 End: 10-04-2023 Hepatitis A virus IgM Ab [Presence] in Serum or Plasma by Immunoassay Hepatitis A antibody, IgM Lab Routine Psoriasis vulgaris Encounter for long-term current use of high risk medication Screening for viral disease Expected: 10/04/2022 (Approximate), Expires: 10/04/2023 [employer] [facility] Comment on above: Expected: 10/04/2022 (Approximate), Expi res: 10/04/2023 Start: 10-04-2022 End: 10-04-2023 Hepatitis B virus core IgM Ab [Presence] in Serum or Plasma by Immunoassay Hepatitis B core antibody, IgM Lab Routine Psoriasis vulgaris Encounter for long-term current use of high risk medication Screening for viral disease Expected: 10/04/2022 (Approximate), Expires: 10/04/2023 [employer] Comment on above: Expected: 10/04/2022 (Approximate), Expi res: 10/04/2023 Start: 10-04-2022 End: 10-04-2023 Hepatitis B virus surface Ab [Units/volume] in Serum or Plasma by Immunoassay Hepatitis B surface antibody Lab Routine Psoriasis vulgaris Encounter for long-term current use of high risk medication Screening for viral disease Expected: 10/04/2022 (Approximate), Expires: 10/04/2023 [employer] Comment on above: Expected: 10/04/2022 (Approximate), Expi res: 10/04/2023 Start: 10-04-2022 End: 10-04-2023 Hepatitis B virus surface Ag [Presence] in Serum or Plasma by Immunoassay Hepatitis B surface antigen Lab Routine Psoriasis vulgaris Encounter for long-term current use of high risk medication Screening for viral disease Expected: 10/04/2022 (Approximate), Expires: 10/04/2023 [employer] Comment on above: Expected: 10/04/2022 (Approximate), Expi res: 10/04/2023 Start: 10-04-2022 End: 10-04-2023 Hepatitis C virus Ab [Presence] in Serum or Plasma by Immunoassay Hepatitis C antibody Lab Routine Psoriasis vulgaris Encounter for long-term current use of high risk medication Screening for viral disease Expected: 10/04/2022 (Approximate), Expires: 10/04/2023 [employer] Comment on above: Expected: 10/04/2022 (Approximate), Expi res: 10/04/2023 Start: 10-04-2022 End: 10-04-2023 HIV 1+2 Ab+HIV1 p24 Ag [Presence] in Serum or Plasma by Immunoassay HIV-1 and HIV-2 Antigen-Antibody Screen Lab Routine Psoriasis vulgaris Encounter for long-term current use of high risk medication Screening for viral disease Expected: 10/04/2022 (Approximate), Expires: 10/04/2023 [facility] Comment on above: Expected: 10/04/2022 (Approximate), Expi res: 10/04/2023 Start: 10-04-2022 End: 10-04-2023 QUANTIFERON TB GOLD QUANTIFERON TB GOLD Lab Routine Psoriasis vulgaris Encounter for long-term current use of high risk medication Expected: 10/04/2022 (Approximate), Expires: 10/04/2023 [facility] [employer] Comment on above: Expected: 10/04/2022 (Approximate), Expi res: 10/04/2023 Start: 08-28-2022 DEPRESSION ASSESSMENT DEPRESSION ASSESSMENT [facility] Start: 07-11-2022 End: 09-10-2022 Hemoglobin A1c in Blood HGB A1C Lab Routine Type 1 diabetes mellitus with hyperglycemia (HCC) Insulin pump status Expected: 07/11/2022, Expires: 09/10/2022 [facility] Work Phone: Comment on above: Expected: 07/11/2022, Expires: 3 Start: 07-11-2022 End: 09-10-2022 THYROID PEROXIDASE ANTIBODY BLOOD THYROID PEROXIDASE ANTIBODY BLOOD Lab Routine Type 1 diabetes mellitus with hyperglycemia (HCC) Insulin pump status Abnormal results of thyroid function studies Expected: 07/11/2022, Expires: 09/10/2022 [facility] Work Phone: Comment on above: Expected: 07/11/2022, Expires: 3 Start: 07-11-2022 End: 09-10-2022 Thyrotropin [Units/volume] in Serum or Plasma TSH BLD Lab Routine Type 1 diabetes mellitus with hyperglycemia (HCC) Insulin pump status Abnormal results of thyroid function studies Expected: 07/11/2022, Expires: 09/10/2022 [facility] Work Phone: Comment on above: Expected: 07/11/2022, Expires: 3 Start: 07-11-2022 End: 09-10-2022 Thyroxine (T4) free [Mass/volume] in Serum or Plasma T4 FREE/FREE THYROX Lab Routine Type 1 diabetes mellitus with hyperglycemia (HCC) Insulin pump status Abnormal results of thyroid function studies Expected: 07/11/2022, Expires: 09/10/2022 [facility] Work Phone: Comment on above: Expected: 07/11/2022, Expires: 3 Start: 07-02-2022 Hemoglobin A1c/Hemoglobin.total in Blood HBA1C [facility] Start: 04-28-2022 Influenza vaccination [facility] Start: 04-18-2022 End: 06-18-2022 Chlamydia trachomatis+Neisseria gonorrhoeae DNA [Presence] in Urine by DANIEL with probe detection GC/CHLAMYDIA AMPLIF, URINE Microbiology Routine Menstrual irregularity Screening for STD (sexually transmitted disease) Expected: 04/18/2022, Expires: 06/18/2022 [facility] Work Phone: Comment on above: Expected: 04/18/2022, Expires: 2 Start: 04-18-2022 End: 06-18-2022 Choriogonadotropin ( test) [Presence] in Urine HCG QUAL UR Lab Routine Menstrual irregularity Expected: 04/18/2022, Expires: 06/18/2022 [facility] Work Phone: Comment on above: Expected: 04/18/2022, Expires: 2 Start: 02-04-2022 Hepatitis B surface antibody level LDL CHOLESTEROL [facility] Start: 08-28-2021 DEPRESSION ASSESSMENT DEPRESSION ASSESSMENT [facility] Start: 05-27-2021 Hemoglobin A1c/Hemoglobin.total in Blood HBA1C [facility] Start: 12-23-2020 Glaucoma screening Dilated Retinal Exam [facility] Start: 12-23-2020 Hepatitis C antibody, confirmatory test DILATED RETINAL EXAM [facility] Start: 03-30-2019 PAP TESTING PAP TESTING [facility] Start: 03-21-2018 Diabetes: Urine Albumin-Creatinine Ratio for Kidney Health Diabetes: Urine Albumin-Creatinine Ratio for Kidney Health [facility] Start: 03-21-2018 Hepatitis B screening URINE ALBUMIN:CREATININE RATIO [facility] Start: 11-23-2016 Adult depression screening assessment DEPRESSION SCREENING [facility] Start: 11-12-2016 3 comp foot exam completed DIABETIC FOOT EXAM [facility] Start: 01-01-2014 PNEUMOCOCCAL (2 - PCV) PNEUMOCOCCAL (2 - PCV) [facility] Start: 01-01-2014 Pneumococcal vaccination [facility] Start: 2013 HEPATITIS B (1 of 3 - Risk 3-dose series) HEPATITIS B (1 of 3 - Risk 3-dose series) [facility] Start: 2013 Hepatitis B Vaccine (1 of 3 - 19+ 3-dose series) Hepatitis B Vaccine (1 of 3 - 19+ 3-dose series) [facility] Start: 2013 Hepatitis B Vaccines (1 of 3 - 19+ 3-dose series) Hepatitis B Vaccines (1 of 3 - 19+ 3-dose series) [facility] Start: 2013 Urine screening for protein Diabetes: Urine Protein Screening [facility] Start: 12-11-2012 HPV Vaccine (3 - 3-dose series) HPV Vaccine (3 - 3-dose series) [facility] Start: 12-11-2012 HPV Vaccines (3 - 3-dose series) HPV Vaccines (3 - 3-dose series) [facility] Start: 11-06-2012 Hepatitis A Vaccines (2 of 2 - 2-dose series) Hepatitis A Vaccines (2 of 2 - 2-dose series) [facility] Start: 2012 ANNUAL PCP TEAM CHRONIC DISEASE VISIT ANNUAL PCP TEAM CHRONIC DISEASE VISIT [facility] Start: 2012 BP CONTROLLED (<130/80) BP CONTROLLED (<130/80) [facility] Start: 2012 Depression Screening Depression Screening [facility] Start: 2012 Diabetes: Urine Albumin-Creatinine Ratio for Kidney Health Diabetes: Urine Albumin-Creatinine Ratio for Kidney Health [facility] Start: 2012 Hepatitis B surface antibody level LDL CHOLESTEROL [facility] Start: 2007 Varicella vaccination Varicella Vaccines (1 of 2 - 13+ 2-dose series) [facility] Start: 2006 Depression Monitoring Depression Monitoring [facility] Start: 2006 Depression Screening Depression Screening [facility] Start: 2004 Diabetic foot examination Diabetes: Foot Exam [facility] Start: 2004 Glaucoma screening Diabetes: Retinopathy Screening [facility] Start: 2004 Preventive dental service Diabetes: Dental Exam [facility] Start: 2000 PNEUMOCOCCAL (1 - PCV) PNEUMOCOCCAL (1 - PCV) [facility] Start: 1999 COVID-19 VACCINE (#1) COVID-19 VACCINE (#1) [facility] Start: 1999 COVID-19 VACCINE (1) COVID-19 VACCINE (1) [facility] Start: 1995 MMR Vaccines (1 of 1 - Standard series) MMR Vaccines (1 of 1 - Standard series) [facility] Start: 1995 Varicella vaccination Varicella Vaccines (1 of 2 - 2-dose childhood series) [facility] Start: 01-27-1995 COVID-19 VACCINE (#1) COVID-19 VACCINE (#1) [facility] Start: 1994 Hemoglobin A1c measurement Diabetes: Hemoglobin A1C [facility] Start: 1994 HEPATITIS B (1 of 3 - 3-dose series) HEPATITIS B (1 of 3 - 3-dose series) [facility] Start: 1994 Hepatitis B Vaccine (1 of 3 - 3-dose series) Hepatitis B Vaccine (1 of 3 - 3-dose series) [facility] Start: 1994 Hepatitis B Vaccines (1 of 3 - 3-dose series) Hepatitis B Vaccines (1 of 3 - 3-dose series) [facility] Start: 1994 Lipid panel Lipid Panel [facility] Start: 1994 Medicare Advantage Annual Wellness Visit (AWV) Medicare Advantage Annual Wellness Visit (AWV) [facility] Anion gap measurement [facility] Anion gap measurement [facility] Anion gap measurement [facility] Anion gap measurement [facility] Anion gap measurement [facility] [facility] Anion gap measurement [facility] Anion gap measurement [facility] Anion gap measurement [facility] Anion gap measurement [facility] Anion gap measurement [facility] Anion gap measurement [facility] Anion gap measurement [facility] Anion gap measurement [facility] Anion gap measurement [facility] Bacteria identified in Urine by Culture URINE CULTURE Microbiology Routine Left flank pain Ordered: 01/25/2023 [facility] Work Phone: Comment on above: Ordered: 01/25/2023 BUN/Creatinine ratio [facility] BUN/Creatinine ratio [facility] BUN/Creatinine ratio [facility] BUN/Creatinine ratio [facility] BUN/Creatinine ratio [facility] BUN/Creatinine ratio [facility] BUN/Creatinine ratio [facility] BUN/Creatinine ratio [facility] BUN/Creatinine ratio [facility] BUN/Creatinine ratio [facility] BUN/Creatinine ratio [facility] BUN/Creatinine ratio [facility] BUN/Creatinine ratio [facility] BUN/Creatinine ratio [facility] Calcium [Mass/volume ] in Serum or Plasma [facility] Calcium [Mass/volume ] in Serum or Plasma [facility] Calcium [Mass/volume ] in Serum or Plasma [facility] Calcium [Mass/volume ] in Serum or Plasma [facility] Calcium [Mass/volume ] in Serum or Plasma [facility] Calcium [Mass/volume ] in Serum or Plasma [facility] Calcium [Mass/volume ] in Serum or Plasma [facility] Calcium [Mass/volume ] in Serum or Plasma [facility] Calcium [Mass/volume ] in Serum or Plasma [facility] Calcium [Mass/volume ] in Serum or Plasma [facility] Calcium [Mass/volume ] in Serum or Plasma [facility] Calcium [Mass/volume ] in Serum or Plasma [facility] Calcium [Mass/volume ] in Serum or Plasma [facility] Calcium [Mass/volume ] in Serum or Plasma [facility] Carbon dioxide, tota l [Moles/volume] in Serum or Plasma [facility] Carbon dioxide, tota l [Moles/volume] in Serum or Plasma [facility] Carbon dioxide, tota l [Moles/volume] in Serum or Plasma [facility] Carbon dioxide, tota l [Moles/volume] in Serum or Plasma [facility] Carbon dioxide, tota l [Moles/volume] in Serum or Plasma [facility] Carbon dioxide, tota l [Moles/volume] in Serum or Plasma [facility] Carbon dioxide, tota l [Moles/volume] in Serum or Plasma [facility] Carbon dioxide, tota l [Moles/volume] in Serum or Plasma [facility] Carbon dioxide, tota l [Moles/volume] in Serum or Plasma [facility] Carbon dioxide, tota l [Moles/volume] in Serum or Plasma [facility] Carbon dioxide, tota l [Moles/volume] in Serum or Plasma [facility] Carbon dioxide, tota l [Moles/volume] in Serum or Plasma [facility] Carbon dioxide, tota l [Moles/volume] in Serum or Plasma [facility] Carbon dioxide, tota l [Moles/volume] in Serum or Plasma [facility] Chlamydia trachomatis+Neisseria gonorrhoeae DNA [Presence] in Unspecified specimen by DANIEL with probe detection GC/CHLAMYDIA DNA DET Lab Routine Gonorrhea Screen for sexually transmitted diseases Ordered: 06/07/2022 [facility] Work Phone: Comment on above: Ordered: 06/07/2022 Chlamydia trachomatis+Neisseria gonorrhoeae DNA [Presence] in Unspecified specimen by DANIEL with probe detection GONORRHEA/CHLAMYDIA NAAT Lab Routine Encounter for gynecological examination (general) (routine) without abnormal findings Encounter for screening for malignant neoplasm of cervix Screening for human papillomavirus (HPV) Irregular menstrual bleeding Routine screening for STI (sexually transmitted infection) 07/10/2024 12:13 PM [facility] Chloride [Moles/volu me] in Serum or Plasma [facility] Chloride [Moles/volu me] in Serum or Plasma [facility] Chloride [Moles/volu me] in Serum or Plasma [facility] Chloride [Moles/volu me] in Serum or Plasma [facility] Chloride [Moles/volu me] in Serum or Plasma [facility] Chloride [Moles/volu me] in Serum or Plasma [facility] Chloride [Moles/volu me] in Serum or Plasma [facility] Chloride [Moles/volu me] in Serum or Plasma [facility] Chloride [Moles/volu me] in Serum or Plasma [facility] Chloride [Moles/volu me] in Serum or Plasma [facility] Chloride [Moles/volu me] in Serum or Plasma [facility] Chloride [Moles/volu me] in Serum or Plasma [facility] Chloride [Moles/volu me] in Serum or Plasma [facility] Chloride [Moles/volu me] in Serum or Plasma [facility] Clostridioides diffi cile DNA [Presence] in Unspecified specimen by DANIEL with probe detection [facility] Creatinine [Moles/vo lume] in Serum or Plasma [facility] Creatinine [Moles/vo lume] in Serum or Plasma [facility] Creatinine [Moles/vo lume] in Serum or Plasma [facility] Creatinine [Moles/vo lume] in Serum or Plasma [facility] Creatinine [Moles/vo lume] in Serum or Plasma [facility] Creatinine [Moles/vo lume] in Serum or Plasma [facility] Creatinine [Moles/vo lume] in Serum or Plasma [facility] Creatinine [Moles/vo lume] in Serum or Plasma [facility] Creatinine [Moles/vo lume] in Serum or Plasma [facility] Creatinine [Moles/vo lume] in Serum or Plasma [facility] Creatinine [Moles/vo lume] in Serum or Plasma [facility] Creatinine [Moles/vo lume] in Serum or Plasma [facility] Creatinine [Moles/vo lume] in Serum or Plasma [facility] Creatinine [Moles/vo lume] in Serum or Plasma [facility] Gastrointestinal pathogens panel - Stool by DANIEL with probe detection [facility] Glucose [Mass/volume ] in Serum or Plasma [facility] Glucose [Mass/volume ] in Serum or Plasma [facility] Glucose [Mass/volume ] in Serum or Plasma [facility] Glucose [Mass/volume ] in Serum or Plasma [facility] Glucose [Mass/volume ] in Serum or Plasma [facility] Glucose [Mass/volume ] in Serum or Plasma [facility] Glucose [Mass/volume ] in Serum or Plasma [facility] Glucose [Mass/volume ] in Serum or Plasma [facility] Glucose [Mass/volume ] in Serum or Plasma [facility] Glucose [Mass/volume ] in Serum or Plasma [facility] Glucose [Mass/volume ] in Serum or Plasma [facility] Glucose [Mass/volume ] in Serum or Plasma [facility] Glucose [Mass/volume ] in Serum or Plasma [facility] Glucose [Mass/volume ] in Serum or Plasma [facility] Hematocrit [Volume Fraction] of Blood [facility] Hematocrit [Volume Fraction] of Blood [facility] Hematocrit [Volume Fraction] of Blood [facility] Hematocrit [Volume Fraction] of Blood [facility] Hematocrit [Volume Fraction] of Blood [facility] Hematocrit [Volume Fraction] of Blood [facility] Hematocrit [Volume Fraction] of Blood [facility] Hemoglobin [Mass/vol ume] in Blood [facility] Hemoglobin [Mass/vol ume] in Blood [facility] Hemoglobin [Mass/vol ume] in Blood [facility] Hemoglobin [Mass/vol ume] in Blood [facility] Hemoglobin [Mass/vol ume] in Blood [facility] Hemoglobin [Mass/vol ume] in Blood [facility] Hemoglobin [Mass/vol ume] in Blood [facility] Hemoglobin A1c/Hemoglobin.total in Blood HEMOGLOBIN A1C (POC) Lab Routine Type 1 diabetes mellitus with hyperglycemia, with long-term current use of insulin (HCC) Ordered: 03/12/2024 [facility] Work Phone: Comment on above: Ordered: 03/12/2024 Lactoferrin [Presenc e] in Stool by Immunoassay [facility] Leukocytes [#/volume ] in Blood [facility] Leukocytes [#/volume ] in Blood [facility] Leukocytes [#/volume ] in Blood [facility] Leukocytes [#/volume ] in Blood [facility] Leukocytes [#/volume ] in Blood [facility] Leukocytes [#/volume ] in Blood [facility] Leukocytes [#/volume ] in Blood [facility] Magnesium [Mass/volu me] in Serum or Plasma [facility] Mean corpuscular hemoglobin concentration determination [facility] Mean corpuscular hemoglobin concentration determination [facility] Mean corpuscular hemoglobin concentration determination [facility] Mean corpuscular hemoglobin concentration determination [facility] Mean corpuscular hemoglobin concentration determination [facility] Mean corpuscular hemoglobin concentration determination [facility] Mean corpuscular hemoglobin concentration determination [facility] Mean corpuscular hemoglobin determination [facility] Mean corpuscular hemoglobin determination [facility] Mean corpuscular hemoglobin determination [facility] Mean corpuscular hemoglobin determination [facility] Mean corpuscular hemoglobin determination [facility] Mean corpuscular hemoglobin determination [facility] Mean corpuscular hemoglobin determination [facility] Measurement of renal function [facility] Measurement of renal function [facility] Measurement of renal function [facility] Measurement of renal function [facility] Measurement of renal function [facility] Measurement of renal function [facility] Measurement of renal function [facility] Measurement of renal function [facility] Measurement of renal function [facility] Measurement of renal function [facility] Measurement of renal function [facility] Measurement of renal function [facility] Measurement of renal function [facility] Measurement of renal function [facility] Neutrophil count [facility] Neutrophil count [facility] Neutrophil count [facility] Neutrophil count [facility] Neutrophil count [facility] Neutrophil count [facility] Neutrophil count [facility] Neutrophil percent differential count [facility] Neutrophil percent differential count [facility] Neutrophil percent differential count [facility] Neutrophil percent differential count [facility] Neutrophil percent differential count [facility] Neutrophil percent differential count [facility] Neutrophil percent differential count [facility] Ova and parasites identified in Unspecified specimen by Light microscopy [facility] PAP TEST PAP TEST Lab [facility] for screening for malignant neoplasm of cervix Screening for human papillomavirus (HPV) 07/10/2024 12:13 PM [facility] Patient Education [facility] Work Phone: Patient referral [facility] Work Phone: Platelets [#/volume] in Blood [facility] Platelets [#/volume] in Blood [facility] Platelets [#/volume] in Blood [facility] Platelets [#/volume] in Blood [facility] Platelets [#/volume] in Blood [facility] Platelets [#/volume] in Blood [facility] Platelets [#/volume] in Blood [facility] Potassium [Moles/vol ume] in Serum or Plasma [facility] Potassium [Moles/vol ume] in Serum or Plasma [facility] Potassium [Moles/vol ume] in Serum or Plasma [facility] Potassium [Moles/vol ume] in Serum or Plasma [facility] Potassium [Moles/vol ume] in Serum or Plasma [facility] Potassium [Moles/vol ume] in Serum or Plasma [facility] Potassium [Moles/vol ume] in Serum or Plasma [facility] Potassium [Moles/vol ume] in Serum or Plasma [facility] Potassium [Moles/vol ume] in Serum or Plasma [facility] Potassium [Moles/vol ume] in Serum or Plasma [facility] Potassium [Moles/vol ume] in Serum or Plasma [facility] Potassium [Moles/vol ume] in Serum or Plasma [facility] Potassium [Moles/vol ume] in Serum or Plasma [facility] Potassium [Moles/vol ume] in Serum or Plasma [facility] Red blood cell count [facility] Red blood cell count [facility] Red blood cell count [facility] Red blood cell count [facility] Red blood cell count [facility] Red blood cell count [facility] Red blood cell count [facility] Red cell distributio n width determination [facility] Red cell distributio n width determination [facility] Red cell distributio n width determination [facility] Red cell distributio n width determination [facility] Red cell distributio n width determination [facility] Red cell distributio n width determination [facility] Red cell distributio n width determination [facility] Respiratory pathogen s DNA and RNA panel - Respiratory specimen by DANIEL with probe detection [facility] Sodium [Moles/volume ] in Serum or Plasma [facility] Sodium [Moles/volume ] in Serum or Plasma [facility] Sodium [Moles/volume ] in Serum or Plasma [facility] Sodium [Moles/volume ] in Serum or Plasma [facility] Sodium [Moles/volume ] in Serum or Plasma [facility] Sodium [Moles/volume ] in Serum or Plasma [facility] Sodium [Moles/volume ] in Serum or Plasma [facility] Sodium [Moles/volume ] in Serum or Plasma [facility] Sodium [Moles/volume ] in Serum or Plasma [facility] Sodium [Moles/volume ] in Serum or Plasma [facility] Sodium [Moles/volume ] in Serum or Plasma [facility] Sodium [Moles/volume ] in Serum or Plasma [facility] Sodium [Moles/volume ] in Serum or Plasma [facility] Sodium [Moles/volume ] in Serum or Plasma [facility] T VAGINALIS AMPLIFICATION T VAGI NALIS AMPLIFICATION Lab Routine Screening for STD (sexually transmitted disease) Ordered: 04/18/2022 [facility] Work Phone: Comment on above: Ordered: 04/18/2022 TRICHOMONAS VAGINALI S NAAT TRICHOMONAS VAGINALIS NAAT Lab Routine Encounter for gynecological examination (general) (routine) without abnormal findings Encounter for screening for malignant neoplasm of cervix Screening for human papillomavirus (HPV) Irregular menstrual bleeding Routine screening for STI (sexually transmitted infection) 07/10/2024 12:13 PM [facility] Urea nitrogen [Mass/volume] in Serum or Plasma [facility] Urea nitrogen [Mass/volume] in Serum or Plasma [facility] Urea nitrogen [Mass/volume] in Serum or Plasma [facility] Urea nitrogen [Mass/volume] in Serum or Plasma [facility] Urea nitrogen [Mass/volume] in Serum or Plasma [facility] Urea nitrogen [Mass/volume] in Serum or Plasma [facility] Urea nitrogen [Mass/volume] in Serum or Plasma [facility] Urea nitrogen [Mass/volume] in Serum or Plasma [facility] Urea nitrogen [Mass/volume] in Serum or Plasma [facility] Urea nitrogen [Mass/volume] in Serum or Plasma [facility] Urea nitrogen [Mass/volume] in Serum or Plasma [facility] Urea nitrogen [Mass/volume] in Serum or Plasma [facility] Urea nitrogen [Mass/volume] in Serum or Plasma [facility] Urea nitrogen [Mass/volume] in Serum or Plasma [facility] Immunizations Immunization Date Immunization Notes Care Provider Genia bhat 11-05-2019 influenza, injectabl e, quadrivalent, preservative free 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[employer] Work Phone: [facility] Work Phone: 11-05-2019 influenza virus vacc ine, unspecified formulation Leesa Huddleston PA-C Work Phone: [facility] 06-14-2016 influenza, seasonal, injectable 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[employer] Work Phone: [facility] Work Phone: 05-30-2016 influenza nasal, unspecified formulation 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[facility] Work Phone: [facility] Work Phone: 05-30-2016 influenza virus vacc ine, unspecified formulation ANITA COMER MD [facility] 06-05-2015 influenza, seasonal, injectable, preservative free 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[facility] Work Phone: [facility] Work Phone: 05-23-2014 influenza virus vacc ine, unspecified formulation Leesa Huddleston PA-C Work Phone: [facility] 05-23-2014 influenza, seasonal, injectable Ccf Provider [facility] Work Phone: 04-16-2014 tetanus toxoid, redu luis eduardo diphtheria toxoid, and acellular pertussis vaccine, adsorbed Ccf Provider [facility] 01-01-2013 pneumococcal polysaccharide vaccine, 23 valent 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[facility] Work Phone: [facility] Work Phone: 08-11-2012 human papilloma viru s vaccine, quadrivalent 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[facility] Work Phone: [facility] Work Phone: 08-11-2012 HPV, unspecified formulation Leesa Huddleston PA-C Work Phone: [facility] 06-12-2012 human papilloma viru s vaccine, quadrivalent 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[facility] Work Phone: [facility] Work Phone: 05-09-2012 hepatitis A vaccine, pediatric/adolescent dosage, 2 dose schedule 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[facility] Work Phone: [facility] Work Phone: 05-09-2012 hepatitis A and hepatitis B vaccine Leesa Huddleston PA-C Work Phone: [facility] 11-03-2009 meningococcal polysaccharide (groups A, C, Y and W-135) diphtheria toxoid conjugate vaccine (MCV4P) 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 2019 Medicare (Managed Care) [employer] [employer] [place] [employer] [id number] 2019 Medicare [id number] 2017 Medicaid [id number]. [id number] 2017 Medicare [id number] 2017 Medicare [id number] [id number]. [id number] 2012 Medicaid [id number] 1994 Unknown [id number] 2.0.1.625110.3.579.2. 903 Unknown [id number] .0.1.236755.3.579.2. 462 Unknown [id number] 2..1.605697.3.579.2. 462 Unknown [id number] 2.840.1.405002.3.579.2. 462 Unknown [id number] .0.1.193366.3.579.2. 462 Unknown [id number] 2.840.1.988591.3.579.2. 462 Unknown [id number] 2.840.1.721168.3.579.2. 462 Unknown [id number] 2.0.1.981667.3.579.2. 462 Unknown [id number] 2.16.840.1.106331.3.579.2. 462 Unknown [id number] 2.16.840.1.040566.3.579.2. 462 Unknown [id number] 2.16.840.1.675276.3.579.2. 462 Unknown [id number] 2.16.840.1.343713.3.579.2. 462 Unknown [id number] 2.16.840.1.701842.3.579.2. 462 Unknown [id number] 2.16.840.1.586490.3.579.2. 462 Unknown [id number] 2.16.840.1.154320.3.579.2. 462 Unknown [id number] 2.840.1.360887.3.579.2. 462 Unknown [id number] 2.840.1.656412.3.579.2. 462 Unknown [id number] 2.16.840.1.414782.3.579.2. 462 Unknown [id number] 2.16.840.1.128238.3.579.2. 462 Unknown [id number] 2.16.840.1.531527.3.579.2. 462 Unknown [id number] 2.16840.1.808460.3.579.2. 462 Unknown [id number] 2.16840.1.279062.3.579.2. 462 Unknown [id number] 2.16.840.1.321537.3.579.2. 462 Unknown [id number] 2.16.840.1.914772.3.579.2. 462 Unknown [id number] 2.16.840.1.941082.3.579.2. 462 Unknown [id number] 2.16.840.1.304753.3.579.2. 462 Unknown [id number] 2.16.840.1.117190.3.579.2. 462 Unknown [id number] 2.16.840.1.344861.3.579.2. 462 Unknown [id number] 2.16.840.1.942032.3.579.2. 462 Unknown [id number] 2.16.840.1.615526.3.579.2. 462 Unknown [id number] 2.16.840.1.295960.3.579.2. 462 Unknown [id number] 2.16.840.1.426443.3.579.2. 462 Unknown [id number] 2.16.840.1.229760.3.579.2. 462 Unknown [id number] 2.16.840.1.454107.3.579.2. 462 Unknown [id number] 2.16.840.1.930331.3.579.2. 462 Unknown [id number] 2.840.1.046074.3.579.2. 462 Unknown [id number] 2.16840.1.630809.3.579.2. 462 Unknown [id number] 2.840.1.174105.3.579.2. 462 Unknown [id number] 2.16840.1.388337.3.579.2. 462 Unknown [id number] 2.16.840.1.907705.3.579.2. 462 Unknown [id number] 2.16.840.1.610019.3.579.2. 462 Unknown [id number] 2.16.840.1.517648.3.579.2. 462 Unknown [id number] 2.16.840.1.461846.3.579.2. 462 Unknown [id number] 2.16.840.1.243567.3.579.2. 462 Unknown [id number] 2.16.840.1.869948.3.579.2. 462 Unknown [id number] 2.16.840.1.512064.3.579.2. 462 Unknown [id number] 2.16.840.1.547606.3.579.2. 462 Unknown [id number] 2.16.840.1.392587.3.579.2. 462 Unknown [id number] 2.16.840.1.069737.3.579.2. 462 Unknown [id number] 2.16.840.1.706802.3.579.2. 462 Unknown [id number] 2.16.840.1.851513.3.579.2. 462 Unknown [id number] 2.16840.1.224170.3.579.2. 462 Unknown [id number] 2.16840.1.080881.3.579.2. 462 Social History Date Type Detail Facility Start: 12-31-2019 End: 07-10-2024 Tobacco smoking status NHIS Ex-smoker [facility] Start: 06-28-2011 End: 06-28-2019 History of tobacco use Current smoker [facility] Start: 06-28-2011 End: 06-28-2019 History of tobacco use Cigarette Smoker [facility] Start: 12-31-2019 End: 11-14-2023 Cigarettes smoked current (pack per day) - Reported 0.3 [facility] Start: 12-31-2019 End: 07-10-2024 Tobacco use and exposure Smokeless tobacco non-user [facility] Start: 11-25-2020 End: 10-22-2022 Alcohol intake Current non-drinker of alcohol (finding) [facility] Start: 11-02-2020 End: 02-03-2023 History SDOH Social Connections Phone 5 [facility] Start: 11-02-2020 End: 02-03-2023 History SDOH Social Connections Mandaen 1 [facility] Start: 11-02-2020 End: 02-03-2023 History SDOH Social Connections Membership 2 [facility] Start: 11-02-2020 History SDOH Social Connections Living 7 [facility] Start: 11-02-2020 History SDOH Physica l Activity DPW 4 [facility] Start: 11-02-2020 History SDOH Physica l Activity MPS 3 [facility] Start: 1995 [facility]: [facility]23 End: 08-07-2023 Tobacco smoking status Tobacco smoking consumption unknown (finding) [facility] Sex Assigned At Sex [facility] Start: 02-25-2022 End: 10-04-2022 Exposure to SARS-CoV-2 (event) Not sure [facility] Start: 12-08-2022 End: 07-19-2024 Alcohol intake Current drinker of alcohol (finding) [facility] Start: 12-08-2022 Education 13 [facility] Start: 12-08-2022 Alcohol Comment very rarely [facility] Start: 03-20-2023 Tobacco smoking stat [facility] Never smoked tobacco [facility] Start: 03-20-2023 End: 11-14-2023 Tobacco use panel [facility] Start: 03-20-2023 Alcohol Comment occasional [facility] Start: 1995 Sex Assigned At Not on file S [facility] Start: 10-30-2020 Gender identity Identifies as female gender (finding) [facility] Start: 10-30-2020 Sexual orientation Bisexual (finding ) [facility] Start: 01-18-2021 End: 11-14-2023 Alcohol intake Ex-drinker (finding) [facility] Do you belong to any clubs or organizations such as tenriism groups, unions, fraternal or athletic groups, or school groups? No [facility] Are you now , , , , never or living with a partner? Never [facility] How hard is it for y ou to pay for the very basics like food, housing, medical care, and heating Not hard at all [facility] Do you feel stress - tense, restless, nervous, or anxious, or unable to sleep at night because your mind is troubled all the time - these days [OSQ] Not at all [facility] (I/We) worried wheth er (my/our) food would run out before (I/we) got money to buy more. Never true [facility] In the past 12 month s, was there a time when you were not able to pay the mortgage or rent on time? Yes [facility] Start: 03-28-2022 Sex Female (finding) [facility] NEGATED: Highlighted row [facility] Medical Equipment Procedure Code Equipment Code Equipment Original Text Equipment Identifier Dates Graft Vasc 30cm 28mm [facility] [address] - [id number] Start: 12-09-2014 Comment on above: Description: ascendi ng aorta Slv Scler 30mm 2.4mm 1.5mm Dinorah - [id number] Start: 10-29-2012 Comment on above: Description: Style # 72 Silicone Sleeve Strip Scler [id number] Dinorah Strl - [id number] Start: 10-29-2012 Comment on above: Description: Style 4 050 Gas Io Ispan Vsn Sys 125gm Sf6 - [id number] Start: 10-29-2012 Comment on above: Description: SF6 gas 22% [place] Cv 6x6in Thk1.65mm Ptfe - [id number] Start: 12-09-2014 Lens Iol +15.5 Mary Jo 13mm 5.5mm - [id number] Start: 05-14-2014 [id number], [id number], [id number], [id number], [id number], [id number] Start: 05-18-2020 End: 06-25-2025 Comment on above: Use as instructed to check blood glucose 7 times daily. 10 x daily DX Code: O24.011 on insulin RUFINA voucher has been faxed Use as instructed to check blood glucose 5 times daily. E10.65 Use as instructed to test blood sugar 4 times daily. E10.65 Pen Needle, Diabetic (Ultra-Thin Ii Ins Pen [place]) 29 gauge x 1/2 needle Start: 08-10-2023 Pen Needle, Diabetic (Ultra-Thin Ii Ins Pen [place]) 29 gauge x 1/2 needle Start: 08-10-2023 Pen Needle, Diabetic (Ultra-Thin Ii Ins Pen [place]) 29 gauge x 1/2 needle Start: 08-10-2023 Pen Needle, Diabetic (Ultra-Thin Ii Ins Pen [place]) 29 gauge x 1/2 needle Start: 08-10-2023 Pen Needle, Diabetic (Ultra-Thin Ii Ins Pen [place]) 29 gauge x 1/2 needle Start: 08-10-2023 Pen Needle, Diabetic (Ultra-Thin Ii Ins Pen [place]) 29 gauge x 1/2 needle Start: 08-10-2023 Loop Recorder-[id number] Reveal [id number] Start: 09-15-2014 Goals Date Patient Goal Desired Activity /State Personal health goal Functional Status Date Assessment Result Facility 10-18-2023 Functional status Ambulates [facility] Work Phone: 08-10-2023 Functional status Up ad narendra [facility] Work Phone: 04-29-2023 Functional status Ambulates;Bedr est;Bathro om Privilege [facility] Work Phone: 02-04-2023 Are you deaf, or do you have serious difficulty hearing No 02/04/2023 2:39 PM Jhoana Mart RN No [facility] 02-04-2023 Are you blind, or do you have serious difficulty seeing, even when wearing glasses No 02/04/2023 2:39 PM Jhoana Mart, STIVEN No [facility] 02-04-2023 Do you have serious difficulty walking or climbing stairs No 02/04/2023 2:39 PM Jhoana Mart, STIVEN No [facility] 02-04-2023 Do you have difficul ty dressing or bathing No 02/04/2023 2:39 PM Jhoana Mart, STIVEN No [facility] 02-04-2023 Because of a physica l, mental, or emotional condition, do you have difficulty doing errands alone such as visiting a physician's office or shopping No 02/04/2023 2:39 PM Jhoana Mart, STIVEN No [facility] Mental Status Date Assessment Result Facility 10-17-2023 Cognitive function Awake;Alert;Appropriat e [facility] Work Phone: 09-20-2023 Cognitive function Level Of Cons ciousness Awake;Alert;Appropriate;Fol lows Commands [facility] Work Phone: 08-10-2023 Cognitive function Voice/Name [facility] Work Phone: 04-29-2023 Cognitive function Voice/Name [facility] Work Phone: 04-26-2023 Cognitive function Voice/Name [facility] Work Phone: 02-04-2023 Because of a physica l, mental, or emotional condition, do you have serious difficulty concentrating, remembering, or making decisions No 02/04/2023 2:39 PM EDT Jhoana Colunga RN No [facility] Clinical Notes 01-28-2016 to 03-08-2025 Mishel Ortez PA-C - 01/27/2025 1:00 PM EDTTelephone Encounter - Guero Hammer LPN - 11/11/2024 1:55 PM EDTTelephone Encounter - Guero Hammer LPN - 11/11/2024 1:55 PM EDT Note Date & Type Note Facility 03-08-2025 Note [facility] 03-05-2025 Note [facility] 02-21-2025 Note [facility] 01-27-2025 History of Present illness Narrative DATE OF SERVICE: 01/27/2025 PATIENT NAME: Kathleen Villa : 1995 AGE: 29 y.o. CLINIC NUMBER: [id number] Visit type: Established patient Chief Complaint Patient [...] Adhesive? Yes- adhesives. Social History: Born/raised in [place]. Excessive sun exposure: Yes Used tanning beds: [...] ingredient(s). 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 Patient advised to [...] for this encounter. documented in this encounter [facility] 01-26-2025 Note [facility] 12-16-2024 Note [facility] 11-11-2024 Telephone encounter Note Please let her know that her x-ray demonstrates a significantly large amount of stool throughout the colon. I am going to send in Trulance for her to try spoke with patient and she is aware of new Rx was sent to pharmacy. Guero Hammer LPN [facility] 11-11-2024 Miscellaneous Notes Please let her know that her x-ray demonstrates a significantly large amount of stool throughout the colon. I am going to send in Trulance for her to try spoke with patient and she is aware of new Rx was sent to pharmacy. Guero Hammer LPN documented in this encounter [facility] 11-11-2024 History of Present illness Narrative Radiology [...] PATIENT PRESENTS WITH AN IMPLANTABLE OR ATTACHED WEB CONTENT & SOCIAL MEDIA MANAGER: No RADIOLOGY DEPARTMENT: General X-ray: Exam(s) Completed: Abdomen X-Ray: Abdomen PERIPHERAL IV DATA: Not applicable SIGNED BY: RT Eugenio(R) November 11, 2024 11:07 AM documented in this encounter [facility] 11-11-2024 Note HNO ID: [id number] Author: RICCARDO, VAMSI, RT(R) Service: Radiology Author [...] PATIENT PRESENTS WITH AN IMPLANTABLE OR ATTACHED WEB CONTENT & SOCIAL MEDIA MANAGER: No RADIOLOGY DEPARTMENT: General X-ray: Exam(s) Completed: Abdomen X-Ray: Abdomen PERIPHERAL IV DATA: Not applicable SIGNED BY: RT Eugenio(R) November 11, 2024 11:07 AM [facility] 11-11-2024 Note HNO ID: [id number] Author: LETICIA HYLTON, DO Service: ? Author [...] every 24 hours. 38.7 mL 1 Insulin [place], Disposable, (PEN NEEDLE) 32 gauge x /32 [...] no edema RESPIRATORY: No dyspnea : neg DIRECTOR OF DEMENTIA OPERATIONS: neg The remainder of the review of [...] ABDOMEN 1V SUPINE (more content not included)... [facility] 11-11-2024 History of Present illness Narrative FOLLOW [...] every 24 hours. 38.7 mL 1 Insulin [place], Disposable, (PEN NEEDLE) 32 gauge x 5/32 [...] no edema RESPIRATORY: No dyspnea : neg DIRECTOR OF DEMENTIA OPERATIONS: neg The remainder of the review of [...] Hylton DO 11/11/2024 documented in this encounter [facility] 11-06-2024 Note [facility] 11-05-2024 Miscellaneous Notes Agree with ER. [...] on the phone. documented in this encounter [facility] 11-05-2024 Telephone encounter Note Agree with ER. The patient actually does not have gastroparesis although she keeps stating that she does. Her smart pill in 2020 demonstrated no evidence of gastroparesis. What she has is chronic constipation and abdominal pain. [facility] 11-05-2024 Telephone encounter Note Called patient and [...] functioning appropriately. Please advice. Guero Hammer LPN [facility] 11-05-2024 Telephone encounter Note Patient called and left v/m crying. States she has an appointment but is having some major issues and needs to talk to someone about what to do. She did not state what kinds of issues she is having however she was crying on the phone. [facility] Work Phone: 10-21-2024 Note [facility] 10-10-2024 Telephone encounter Note Form re-faxed per [facility] request [facility] 10-10-2024 Miscellaneous Notes Form re-faxed per [facility] request Form signed. Jessica Guerrero APRN.CNP Clinical notes and DWO for infusion supplies placed on providers desk to review and advise. To be faxed to [facility] [phone] Patient has been identified by name and date of : Yes Type of form: [facility] Physician Order for Insulin Pump Therapy and Diabetes Testing Form received via: abstract When form is completed, fax form to fax number provided. Form has been forwarded to: Provider's mailbox. Provider name: FRIEDA Urena documented in this encounter [facility] 10-02-2024 Telephone encounter Note Form signed. Jessica Guerrero APRN.CNP [facility] 10-02-2024 Telephone encounter Note Clinical notes and DWO for infusion supplies placed on providers desk to review and advise. To be faxed to [facility] [phone] [facility] 10-02-2024 Telephone encounter Note Patient has been identified by name and date of : Yes Type of form: [facility] Physician Order for Insulin Pump Therapy and Diabetes Testing Form received via: abstract When form is completed, fax form to fax number provided. Form has been forwarded to: Provider's mailbox. Provider name: FRIEDA Urena [facility] 09-02-2024 Note HNO ID: [id number] Author: LETICIA HYLTON, DO Service: ? Author Type: Physician Type: Progress Notes Filed: 09/02/2024 09:32 Note Text: FOLLOW UP VIRTUAL VISIT I have communicated my name and active licensure. The patient's identity and physical location were verified at the time of this visit. Either the patient or their legal solar sales representative has been informed of the risks and [...] every 24 hours. 38.7 mL 1 Insulin [place], Disposable, (PEN NEEDLE) 32 gauge x 5/32 [...] no edema RESPIRATORY: No dyspnea : Negative DIRECTOR OF DEMENTIA OPERATIONS: Negative The remainder of the review of [...] the local ER Leticia Hylton DO 09/02/2024 [facility] 09-02-2024 History of Present illness Narrative FOLLOW UP VIRTUAL VISIT I have communicated my name and active licensure. The patient's identity and physical location were verified at the time of this visit. Either the patient or their legal solar sales representative has been informed of the risks and [...] every 24 hours. 38.7 mL 1 Insulin [place], Disposable, (PEN NEEDLE) 32 gauge x 5/32 [...] no edema RESPIRATORY: No dyspnea : Negative DIRECTOR OF DEMENTIA OPERATIONS: Negative The remainder of the review of systems are negative. Reviewed with patient during visit today. PHYSICAL EXAMINATION: [facility] 06/04/2024 Estimated weight: GENERAL APPEARANCE: Well developed [...] Hylton DO 09/02/2024 documented in this encounter [facility] 08-07-2024 Telephone encounter Note Medication: Skyrizi 150mg/ml Dosing Schedule: 150mg every 12 weeks Prior Authorization: Submitted date: 08.07.2024 [place] reference #: [id number] Approval dates: 08.07.2024-08.27.2024 [facility] [phone] [facility] 08-07-2024 Miscellaneous Notes Medication: Skyrizi 150mg/ml Dosing Schedule: 150mg every 12 weeks Prior Authorization: Submitted date: 08.07.2024 [place] reference #: [id number] Approval dates: 08.07.2024-08.27.2024 [facility] [phone] documented in this encounter [facility] 08-03-2024 Note [facility] 07-24-2024 Telephone encounter Note [facility] form for CGM /Pump completed and signed per Provider for Medtronic 780G pump and Guardian 4. Completed form and JOSE X2 documentation faxed as requested to [facility]. Lisa Aguilar LPN [facility] 07-24-2024 Miscellaneous Notes [facility] form for CGM /Pump completed and signed per Provider for Medtronic 780G pump and Guardian 4. Completed form and JOSE X2 documentation faxed as requested to [facility]. Lisa Aguilar LPN Images from the original note were not included. Jessica Guerrero APRN.FRIEDA Garrido Ma Pool She was able to get upgraded pump recently. I am sending her to [facility] and [employer] to start. She will need new supplies from [facility] including Guardian 4 CGM and supplies for Medtronic 780 G. Jessica Guerrero APRN.SUPERVISOR AGRICULTURAL EDUCATION documented in this encounter [facility] 07-23-2024 Note HNO ID: [id number] Author: VAMSI CARSON RN Service: ? Author [...] DATE: July 23, 2024 TIME: 8:47 AM [facility] 07-23-2024 History of Present illness Narrative DIABETES [...] TIME: 8:47 AM documented in this encounter [facility] 07-19-2024 Telephone encounter Note Images from the original note were not included. Jessica Guerrero APRN.FRIEDA Garrido Silvino Isma She was able to get upgraded pump recently. I am sending her to [employer] and [employer] to start. She will need new supplies from [facility] including Guardian 4 CGM and supplies for Medtronic 780 G. Jessica Guerrero APRN.SUPERVISOR AGRICULTURAL EDUCATION [facility] 07-19-2024 History of Present illness Narrative [facility] DIABETES VISIT VIRTUAL VISIT I have communicated my name and active licensure. The patient's identity and physical location were verified at the time of this visit. Either the patient or their legal solar sales representative has been informed of the risks and [...] 43 Units subcutaneously every 24 hours. Insulin [place], Disposable, (PEN NEEDLE) 32 gauge x 5/32 [...] long-term current use of insulin ([facility]) (primary encounter diagnosis) (Z96.41) Insulin pump status - Undetermined control - She was able to get upgraded pump back recently - Plans to send loaner back as it would be monthly charge - Will have her schedule visit with educator to start pump - Message sent to Umair at [employer] to help with upgrade to 780G and start Guardian 4 CGM - Will reach out to [facility] so she can get supplies - Update [...] I will reach out to Umair at [employer] about new pump and CGM 5) Update [...] months. Jessica Guerrero APRN.CNP Endocrinology & Metabolism [place] Some elements in this note were copied from my last note and have been updated as appropriate and reflect medical decision making today. documented in this encounter [facility] 07-19-2024 Note HNO ID: [id number] Author: JESSICA GUERRERO APRN.CNP Service: ? Author Type: Nurse Practitioner Type: Progress Notes Filed: 07/19/2024 15:15 Note Text: [facility] DIABETES VISIT VIRTUAL VISIT I have communicated my name and active licensure. The patient's identity and physical location were verified at the time of this visit. Either the patient or their legal solar sales representative has been informed of the risks and [...] 43 Units subcutaneously every 24 hours. Insulin [place], Disposable, (PEN NEEDLE) 32 gauge x 5/32 [...] ECG TRANSMIS W (more content not included)... [facility] 07-10-2024 Note HNO ID: [id number] Author: JASON PAREDES MD Service: ? Author [...] L2 SAB0 IAB0 Ectopic0 Multiple0 Live Births2 [place] History LMP: 11/26/2022 (Exact Date), Having periods Age at Menarche: 12 Age at First : Age at Menopause: [place] History Comments: Sexual Activity: Yes; Male Contraception: [...] discussed with the Patient or Patient's Authorized Crusher Setter. As applicable, any other physician, advance practice provider, medical student, or other health professional student that will be observing or involved in the sensitive examination for educational or training purposes was discussed with the Patient or Authorized Crusher Setter. The Patient or Authorized Crusher Setter has agreed to proceed with the sensitive [...] external genitalia normal, normal Bartholin's glands, urethra, Dowell's glands, no vulvar lesions, no cervical lesions, [...] or sooner as needed Jason Paredes MD [facility] 07-10-2024 History of Present illness Narrative Gilda [...] L2 SAB0 IAB0 Ectopic0 Multiple0 Live Births2 [place] History LMP: 11/26/2022 (Exact Date), Having periods Age at Menarche: 12 Age at First : Age at Menopause: [place] History Comments: Sexual Activity: Yes; Male Contraception: [...] discussed with the Patient or Patient's Authorized Crusher Setter. As applicable, any other physician, advance practice provider, medical student, or other health professional student that will be observing or involved in the sensitive examination for educational or training purposes was discussed with the Patient or Authorized Crusher Setter. The Patient or Authorized Crusher Setter has agreed to proceed with the sensitive [...] external genitalia normal, normal Bartholin's glands, urethra, Dowell's glands, no vulvar lesions, no cervical lesions, [...] Jason Paredes MD documented in this encounter [facility] 06-25-2024 Telephone encounter Note Message has been relayed to patient via phone. Patient verbalizes understanding. Olery message sent for patients reference as requested. [facility] 06-25-2024 Miscellaneous Notes Message has been relayed to patient via phone. Patient verbalizes understanding. Olery message sent for patients reference as requested. I recommend she sees field crop farmer to review pump options- I am fine [...] any further questions or concerns, Jessica Guerrero APRN.SUPERVISOR AGRICULTURAL EDUCATION JOSE- 03/12/24 NOV- 07/19/24 Spoke to patient [...] Insulin Lispro. Would like pen-injector sent to [facility] Discussed with provider in office Please advise Patient needs a new pump other than medtonic pump. She also needs pen novolog while she awaits a new pump documented in this encounter [facility] 06-25-2024 Telephone encounter Note I recommend she sees field crop farmer to review pump options- I am fine [...] any further questions or concerns, Jessica Guerrero APRN.SUPERVISOR AGRICULTURAL EDUCATION [facility] 06-25-2024 Telephone encounter Note JOSE- 03/12/24 NOV- [...] Insulin Lispro. Would like pen-injector sent to [facility] Discussed with provider in office Please advise [facility] 06-24-2024 Telephone encounter Note Patient needs a new pump other than medtonic pump. She also needs pen novolog while she awaits a new pump [facility] Work Phone: 06-17-2024 Telephone encounter Note Noted. Copy scanned into chart [facility] 06-17-2024 Miscellaneous Notes Noted. Copy scanned into chart Patient has been identified by name and date of : Yes Type of form: [employer] Medication Reconciliation Post Discharge V2 Form received via: Fax When form is completed, fax form to fax number provided. Form has been forwarded to: Provider's mailbox. Provider name: Dr. Joshua Quinteros documented in this encounter [facility] 06-17-2024 Telephone encounter Note Patient has been identified by name and date of : Yes Type of form: [employer] Medication Reconciliation Post Discharge V2 Form received via: Fax When form is completed, fax form to fax number provided. Form has been forwarded to: Provider's mailbox. Provider name: Dr. Joshua Quinteros [facility] 06-11-2024 Note [facility] 05-24-2024 Telephone encounter Note Spoke to pt. JOSE 03/12/24 ( we can sent notes over, if needed) NOV 07/19/24 We have not received any new order forms from [facility] or [employer]. Advised pt to reach out. [facility] 05-24-2024 Miscellaneous Notes Spoke to pt. [facility] 03/12/24 ( we can sent notes over, if needed) NOV 07/19/24 We have not received any new order forms [facility] Advised pt to reach out. Patient has to reschedule her may appt and will be completely out of her pump supplies before her next June appt. Please advise she needs her pump suppllies Lantus refill sent in. Please keep me updated if any issues. Jessica Guerrero APRN.SUPERVISOR AGRICULTURAL EDUCATION [facility] 03/12/24 Joshua CAMPA 05/28/24 Josue Pt uses [facility] for supplies Has had loaner pump x3 months through [employer] and now has to return it or pay $3000 out of pocket. Advised pt she has to call [facility] and have them send us an [...] using her old pump, which malfunctioned, so [employer] gave her a loaner,which she is now being told she has to send back or pay $3000 to keep it. She can't afford to pay the $3000,was told to call her website designer for assistance. documented in this encounter [facility] 05-24-2024 Telephone encounter Note Patient has to reschedule her may appt and will be completely out of her pump supplies before her next June appt. Please advise she needs her pump suppllies [facility] Work Phone: 05-17-2024 Telephone encounter Note Lantus refill sent in. Please keep me updated if any issues. Jessica Guerrero APRN.FRIEDA [facility] 05-17-2024 Telephone encounter Note JOSE 03/12/24 Joshua CAMPA 05/28/24 Josue Pt uses [facility] for supplies Has had loaner pump x3 months through [employer] and now has to return it or pay $3000 out of pocket. Advised pt she has to call [facility] and have them send us an order form for a new pump (have to see if insurance will pay for a new pump- Old pump was 5 years old) Told pt she has to let us know if she is without a pump and needs insulin ordered. Verbalized understanding. [facility] 05-16-2024 Telephone encounter Note Pt got a [...] pay the $3000,was told to call her website designer for assistance. [facility] 05-06-2024 Telephone encounter Note Medication: Skyrizi 150mg/ml Dosing Schedule: 150mg every 12 weeks Prior Authorization: Submitted date: 05.06.2024 [place] reference #: [id number] Approval dates: 05.06.2024-08.27.2024 [facility] [phone] [facility] 05-06-2024 Miscellaneous Notes Medication: Skyrizi 150mg/ml Dosing Schedule: 150mg every 12 weeks Prior Authorization: Submitted date: 05.06.2024 [place] reference #: [id number] Approval dates: 05.06.2024-08.27.2024 [facility] [phone] documented in this encounter [facility] 04-08-2024 Telephone encounter Note Prescription Refill Information [...] Yazmin Zaldivar April 08, 2024 1:18 PM [facility] 04-08-2024 Miscellaneous Notes Prescription Refill Information The [...] 2024 1:18 PM documented in this encounter [facility] 03-12-2024 History of Present illness Narrative Images from the original note were not included. Last Visit: 12/13/2023 Ms. Villa is here for follow up regarding her DM Type 1. Is patient interested in MyChart? Patient uses it SMBG: Hyperglycemia: Yes, but rare Type of Monitor: [employer] 630G/ Guardian Frequency of Monitorin-8 times a [...] long-term current use of insulin ([facility]) (primary encounter diagnosis) (Z96.41) Insulin pump status Her pump malfunctioned 3 weeks ago ( end of January 2023 ) and [employer] sent her loaner pump which she brought [...] which included preparing to see the patient, lhcr-yu-tmao patient care, completing clinical documentation, communicating results to the patient/family/caregiver, and care coordination (not separately reported). documented in this encounter [facility] 03-12-2024 Note HNO ID: [id number] Author: LISA AGUILAR LPN Service: ? Author [...] mg/dL Insulin du (more content not included)... [facility] 03-05-2024 Telephone encounter Note Faxed and filed. [facility] 03-05-2024 Miscellaneous Notes Faxed and filed. Signed On your desk. Please sign Patient has been identified by name and date of : Yes Type of form: Medical Necessity [employer] Form received via: Fax When form is completed, fax form to fax number provided. Form has been forwarded to: SILVINO Liriano documented in this encounter [facility] 03-05-2024 Telephone encounter Note Signed [facility] Work Phone: 03-04-2024 Telephone encounter Note On your desk. Please sign [facility] 03-02-2024 Telephone encounter Note Patient has been identified by name and date of : Yes Type of form: Medical Necessity [employer] Form received via: Fax When form is completed, fax form to fax number provided. Form has been forwarded to: SILVINO Liriano [facility] 02-14-2024 Telephone encounter Note Spoke with patient [...] understanding. No further questions at this time. [facility] 02-14-2024 Miscellaneous Notes Spoke with patient via [...] pump on. Patient can be reached at [phone] documented in this encounter [facility] 02-14-2024 Telephone encounter Note Patient stated that her 630G pump malfunctioned and she had to get a new one. Patient needs to now what settings to put the pump on. Patient can be reached at [phone] [facility] 02-13-2024 Telephone encounter Note Images from the original note were not included. Returned patient's call. Pt states her pump got water on it and stopped working. Pt requests back up medication. Lantus and Humalog sent to the pharmacy of patient's preference. Jenn Solo MD Clinical Fellow PGY-4 Endocrinology and Metabolism [place] [facility] 02-13-2024 Miscellaneous Notes Images from the original note were not included. Returned patient's call. Pt states her pump got water on it and stopped working. Pt requests back up medication. Lantus and Humalog sent to the pharmacy of patient's preference. Jenn Solo MD Clinical Fellow PGY-4 Endocrinology and Metabolism [place] documented in this encounter [facility] 01-25-2024 Telephone encounter Note Returned pt's call. Pt scheduled for 02/01/24 for ILK. [facility] 01-25-2024 Miscellaneous Notes Returned pt's call. Pt [...] not helping either. documented in this encounter [facility] 01-24-2024 Telephone encounter Note Patient left a voicemail on the nurses line returning ileana's call. [facility] 01-24-2024 Miscellaneous Notes Patient left a voicemail [...] not helping either. documented in this encounter [facility] 01-24-2024 Telephone encounter Note Attempted to contact patient to offer/schedule for ILK injection to the stubborn spot on her scalp. Advised to return call if she would like to schedule. [facility] 01-23-2024 Telephone encounter Note Spoke to patient today to set up delivery of Skyrizi. She states that she has a stubborn spot on her scalp that is not going away. Everything else is going well but the topicals are not helping either. [facility] 12-15-2023 Note HNO ID: [id number] Author: GOKYARA HEAD RN Service: ? Author [...] discharged from care coordination. Kyara Luis RN 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 Chronic Care [361] Prescriptions as of 12/15/2023 - promethazine (PHENERGAN) [...] (post-traumatic stress disorder) [F43.10] 12/25/2012 DVT prophylaxis [[id number]] 12/25/2012 09/04/2013 DISPOSITION AND FOLLOW-UP [V999.01] 12/25/2012 09/04/2013 HTN (hypertension) [I10] Hypertension in , antepartum [O16.9] 09/19/2013 01/08/2014 GBS (group B Streptococcus carrier), +RV cultur*11/11/2013 04/16/2014 [Z34.90] 11/22/2013 04/16/2014 Diabetes mellitus in (HCC) [O24.919] 12/25/2013 04/16/2014 Diabetic ketoacidosis without coma associated w*01/08/2014 02/04/2023 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 [facility] 12-13-2023 Instructions Jessica Guerrero APRN.CNP - 12/13/2023 [...] in 3 months documented in this encounter [facility] 12-13-2023 History of Present illness Narrative Images [...] Other maternal great grandma I reviewed the Aircraft Pilot's notes with this visit for vital signs, [...] grandmother DM2 She is living at a longterm currently, will be moving at the end [...] long-term current use of insulin ([facility]) (primary encounter diagnosis) (Z96.41) Insulin pump status - Worsening control - She is having frequent lows - Will adjust basal rate to help prevent low readings - I will reach out to [employer] regarding why CGM order is delayed as [...] months. Jessica Guerrero APRN.CNP Endocrinology & Metabolism [place] Some elements in this note were copied from my last note and have been updated as appropriate and reflect medical decision making today. documented in this encounter [facility] 12-13-2023 Note HNO ID: [id number] Author: JESSICA GUERRERO APRN.CNP Service: ? Author [...] Other maternal great grandma I reviewed the Aircraft Pilot's notes with this visit for vital signs, [...] living at a (more content not included)... [facility] 11-22-2023 Note HNO ID: [id number] Author: KYARA LUIS RN Service: ? Author Type: Registered Nurse Type: Progress Notes Filed: 11/22/2023 14:34 Note Text: Summary: TCM follow up TRANSITION CARE MANAGEMENT (TCM) FOLLOW-UP NOTE Provider Action/FYI Patient identified by name and date of : YES Summary: TCM follow up call placed, patient states doing well. Has been accepted for [facility], completed paperwork and turned in today. States will be moving in near future and Care and share to provide household furnishings. Per patient she has stopped smoking marijuana, focusing on improving mental health and is working 12 step program. Blood sugars remains stable, this am 181, has all medications, taking as directed. TCM completed will follow for care coordination. Regional Sales Trainer plan for next outreach: Will follow up Kyara Luis RN November 22, 2023 2:[address] [facility] 11-22-2023 Note Patient Outreach ([facility] KATHLEEN VILLA ([id number]) 1995 F CHT Date Time Provider Department 11/22/23 KYARA LUIS [facility] During your visit today, we [...] TCM completed will follow for care coordination. Regional Sales Trainer plan for next outreach: Will follow up [...] [Q87.40] 12/25/2012 DM (diabetes mellitus) ([facility]) [E11.9] 12/25/2012 Gastroparesis due to DM ([facility]) [E11.43, K31.84] 12/25/2012 PTSD (post-traumatic stress disorder) [F43.10] 12/25/2012 DVT prophylaxis [[id number]] 12/25/2012 09/04/2013 DISPOSITION AND FOLLOW-UP [V999.01] 12/25/2012 09/04/2013 HTN (hypertension) [I10] Hypertension in , antepartum [O16.9] 09/19/2013 01/08/2014 GBS (group B Streptococcus carrier), +RV cultur*11/11/2013 04/16/2014 [Z34.90] 11/22/2013 04/16/2014 Diabetes mellitus in ([facility]) [O24.919] 12/25/2013 04/16/2014 Diabetic ketoacidosis without coma associated w*01/08/2014 02/04/2023 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] 01/08/2014 DVT prophylaxis [[id number]] 02/25/2014 04/16/2014 care and examination [Z39.2] 02/25/2014 [...] suprapubic [R10.2] 02/07/2023 (more content not included)... [facility] 11-14-2023 History of Present illness Narrative DATE OF SERVICE: 11/14/2023 PATIENT NAME: Kathleen Villa : 1995 AGE: 28 y.o. CLINIC NUMBER: [id number] Visit type: Established patient Chief Complaint Patient [...] reapply. 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 Patient advised to perform self-skin checks and call for follow up appointment if any new or concerning lesions detected. Follow up in about 1 year (around 11/13/2024) for Psoriasis f/u. Leesa Huddleston PA-C 11/14/23 5:13 PM REFERRING MD: documented in this encounter [facility] 11-10-2023 Note HNO ID: [id number] Author: KYARA LUIS RN Service: ? Author [...] yet to schedule but plans to call. Regional Sales Trainer plan for next outreach: Will follow up Priscilla Luis RN November 10, 2023 [facility] 11-10-2023 Note Patient Outreach (MR [facility]) KATHLEEN VILLA ([id number]) 1995 F CHT Date Time Provider Department 11/10/23 KYARA LUIS [facility] During your visit today, we [...] yet to schedule but plans to call. Regional Sales Trainer plan for next outreach: Will follow up [...] (post-traumatic stress disorder) [F43.10] 12/25/2012 DVT prophylaxis [[id number]] 12/25/2012 09/04/2013 DISPOSITION AND FOLLOW-UP [V999.01] 12/25/2012 09/04/2013 HTN (hypertension) [I10] Hypertension in , antepartum [O16.9] 09/19/2013 01/08/2014 GBS (group B Streptococcus carrier), +RV cultur*11/11/2013 04/16/2014 [Z34.90] 11/22/2013 04/16/2014 Diabetes mellitus in (HCC) [O24.919] 12/25/2013 04/16/2014 Diabetic ketoacidosis without coma associated w*01/08/2014 02/04/2023 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] 01/08/2014 DVT prophylaxis [[id number]] 02/25/2014 04/16/2014 care and examination [Z39.2] 02/25/2014 [...] Encounter Status:Closed by KYARA LUIS on 11/10/23 [facility] 11-10-2023 History of Present illness Narrative Summary: [...] yet to schedule but plans to call. Regional Sales Trainer plan for next outreach: Will follow up Signature Kyara Luis RN November 10, 2023 documented in this encounter [facility] 11-03-2023 Note HNO ID: [id number] Author: KYARA LUIS RN Service: ? Author Type: Registered Nurse Type: Progress Notes Filed: 11/03/2023 12:45 Note Text: Summary: TCM follow up TRANSITION CARE MANAGEMENT (TCM) FOLLOW-UP NOTE Provider Action/FYI Patient identified by name and date of : YES Summary: TCM follow up call placed, patient requesting call back at later date, currently resting Regional Sales Trainer plan for next outreach: Will follow up Priscilla Luis RN November 03, 2023 [facility] 11-03-2023 Note Patient Outreach (MR [facility]) KATHLEEN VILLA ([id number]) 1995 F CHT Date Time Provider Department 11/03/23 KYARA LUIS [facility] During your visit today, we recorded the following information about you: Kyara Luis, RN 11/03/2023 12:45 PM Signed TRANSITION CARE MANAGEMENT (TCM) FOLLOW-UP NOTE Provider Action/FYI Patient identified by name and date of : YES Summary: TCM follow up call placed, patient requesting call back at later date, currently resting Regional Sales Trainer plan for next outreach: Will follow up [...] (post-traumatic stress disorder) [F43.10] 12/25/2012 DVT prophylaxis [[id number]] 12/25/2012 09/04/2013 DISPOSITION AND FOLLOW-UP [V999.01] 12/25/2012 09/04/2013 HTN (hypertension) [I10] Hypertension in , antepartum [O16.9] 09/19/2013 01/08/2014 GBS (group B Streptococcus carrier), +RV cultur*11/11/2013 04/16/2014 [Z34.90] 11/22/2013 04/16/2014 Diabetes mellitus in (HCC) [O24.919] 12/25/2013 04/16/2014 Diabetic ketoacidosis without coma associated w*01/08/2014 02/04/2023 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] 01/08/2014 DVT prophylaxis [[id number]] 02/25/2014 04/16/2014 care and examination [Z39.2] 02/25/2014 [...] Encounter Status:Closed by KYARA LUIS on 11/03/23 [facility] 11-03-2023 History of Present illness Narrative Summary: TCM follow up TRANSITION CARE MANAGEMENT (TCM) FOLLOW-UP NOTE Provider Action/FYI Patient identified by name and date of : YES Summary: TCM follow up call placed, patient requesting call back at later date, currently resting Regional Sales Trainer plan for next outreach: Will follow up Signature Kyara Luis RN November 03, 2023 documented in this encounter [facility] 10-27-2023 Note HNO ID: [id number] Author: KYARA LUIS, STIVEN Service: ? Author Type: Registered Nurse Type: Progress Notes Filed: 10/27/2023 14:48 Note Text: Summary: TCM follow up TRANSITION CARE MANAGEMENT (TCM) FOLLOW-UP NOTE Provider Action/FYI Patient identified by name and date of : YES Discharge Network Status: Ryl-ah-Juhxmfa (OON) Discharge Summary: TCM follow up call [...] may have to change to PCP in [place], has difficulty obtaining ride to [place]. Patient asked if name and number of locals physicians can be sent to her, sent via email. States has all medications, taking as directed. Regional Sales Trainer plan for next outreach: Will follow up Signature Kyara Luis RN October 27, 2023 [facility] 10-27-2023 History of Present illness Narrative Summary: TCM follow up TRANSITION CARE MANAGEMENT (TCM) FOLLOW-UP NOTE Provider Action/FYI Patient identified by name and date of : YES Discharge Network Status: Cyb-gz-Tmicnjt (OON) Discharge Summary: TCM follow up call placed to patient, was at ED on 10/25 due to anxiety, started on ativan which is helping. Per patient has thoughts of self harm/cutting, this has subsided, no suicidal ideation. Has been in contact with local [place] for intensive outpatient program and has evaluation on 11/05. Has been in contact with her counselor. Has number to crisis and encouraged to return to ED if new/worsening symptoms. Monitoring blood sugars, states have been stable. Per patient may have to change to PCP in [place], has difficulty obtaining ride to [place]. Patient asked if name and number of locals physicians can be sent to her, sent via email. States has all medications, taking as directed. Regional Sales Trainer plan for next outreach: Will follow up Signature Kyara Luis RN October 27, 2023 documented in this encounter [facility] 10-27-2023 Note Patient Outreach (MR CAC) KATHLEEN VILLA ([id number]) 1995 F T Date Time Provider Department 10/27/23 KYARA LUIS [facility] During your visit today, we recorded the following information about you: Kyara Luis RN 10/27/2023 2:48 PM Signed TRANSITION CARE MANAGEMENT (TCM) FOLLOW-UP NOTE Provider Action/FYI Patient identified by name and date of : YES Discharge Network Status: Iuo-qj-Hktjruu (OON) Discharge Summary: TCM follow up call [...] may have to change to PCP in [place], has difficulty obtaining ride to [place]. Patient asked if name and number of locals physicians can be sent to her, sent via email. States has all medications, taking as directed. Regional Sales Trainer plan for next outreach: Will follow up [...] (post-traumatic stress disorder) [F43.10] 12/25/2012 DVT prophylaxis [[id number]] 12/25/2012 09/04/2013 DISPOSITION AND FOLLOW-UP [V999.01] 12/25/2012 09/04/2013 HTN (hypertension) [I10] Hypertension in , antepartum [O16.9] 09/19/2013 01/08/2014 GBS (group B Streptococcus carrier), +RV cultur*11/11/2013 04/16/2014 [Z34.90] 11/22/2013 04/16/2014 Diabetes mellitus in (HCC) [O24.919] 12/25/2013 04/16/2014 Diabetic ketoacidosis without coma associated w*01/08/2014 02/04/2023 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] 01/08/2014 DVT prophylaxis [PEJ0325] 02/25/2014 04/16/2014 care and examination [Z39.2] 02/25/2014 [...] disease*04/18/2022 Chronic na (more content not included)... [facility] 10-20-2023 Note HNO ID: [id number] Author: KYARA LUIS RN Service: ? Author [...] having a difficult time at a homeless longterm. Patient does attend weekly counseling at [employer], encouraged her to reach out to her [...] business days post-discharge SUMMARY: -Pt discharged from [facility] on 10/18/23. -Follow up appointment Endo. -Medication [...] per patient, her last A1C with her website designer was 6.7. She had however had recurrent [...] to follow up with her PCP and website designer as well as well treatment offsider o/a of gastroparesis. Patient seen and examined prior to discharge. She had no active complaints and had an uneventful night. Review of systems is otherwise negative. Labs and vitals reviewed. Home meds reviewed and reconciled. Kyara Luis RN [facility] 10-20-2023 History of Present illness Narrative Summary: [...] having a difficult time at a homeless longterm. Patient does attend weekly counseling at [employer], encouraged her to reach out to her counselor to discuss increased stress/anxiety levels and she plans on calling today. Per patient, no medication changes, blood sugar today is 156, state n/v resolving, Has all medications, taking as directed. . Patient identified by name and .Yes TCM Eligibility Documentation Program: Transitional Care Management Status: Identified Start Date: 10/18/2023 Responsible Staff: Kyara Luis white goods appliance tech date: 10/18/2023 (Program start) Date of initial contact: 10/20/2023 Initial contact Target status: Successful; Contact made within 2 business days post-discharge SUMMARY: -Pt discharged from [facility] on 10/18/23. -Follow up appointment Endo. -Medication [...] per patient, her last A1C with her website designer was 6.7. She had however had recurrent [...] to follow up with her PCP and website designer as well as well treatment offsider o/a of gastroparesis. Patient seen and examined prior to discharge. She had no active complaints and had an uneventful night. Review of systems is otherwise negative. Labs and vitals reviewed. Home meds reviewed and reconciled. Kyara Luis RN documented in this encounter [facility] 10-20-2023 Note Patient Outreach (MR CAC) KATHLEEN VILLA ([id number]) 1995 F T Date Time Provider Department 10/20/23 KYARA LUIS [facility] During your visit today, we [...] having a difficult time at a homeless longterm. Patient does attend weekly counseling at [employer], encouraged her to reach out to her [...] business days post-discharge SUMMARY: -Pt discharged from [facility] on 10/18/23. -Follow up appointment Endo. -Medication [...] per patient, her last A1C with her website designer was 6.7. She had however had recurrent [...] to follow up with her PCP and website designer as well as well treatment offsider o/a of gastroparesis. Patient seen and examined [...] of 01/09/2020: All (more content not included)... [facility] 10-19-2023 Note HNO ID: [id number] Author: KYARA LUIS RN Service: ? Author Type: Registered Nurse Type: Progress Notes Filed: 10/19/2023 12:05 Note Text: Summary: TCM call TRANSITION CARE MANAGEMENT (TCM) FOLLOW-UP NOTE Provider Action/FYI Summary: TCM call placed to patient, no answer, message left to return my call at [phone] ext [phone] Regional Sales Trainer plan for next outreach: Will follow up Signature Kyara Luis RN October 19, 2023 [facility] 10-19-2023 Note Patient Outreach (MR CAC) KATHLEEN VILLA ([id number]) 1995 F CHT Date Time Provider Department 10/19/23 KYARA LUIS [facility] During your visit today, we recorded the following information about you: Kyara Luis RN 10/19/2023 12:05 PM Signed TRANSITION CARE MANAGEMENT (TCM) FOLLOW-UP NOTE Provider Action/FYI Summary: TCM call placed to patient, no answer, message left to return my call at [phone] ext [phone] Regional Sales Trainer plan for next outreach: Will follow up [...] (post-traumatic stress disorder) [F43.10] 12/25/2012 DVT prophylaxis [[id number]] 12/25/2012 09/04/2013 DISPOSITION AND FOLLOW-UP [V999.01] 12/25/2012 09/04/2013 HTN (hypertension) [I10] Hypertension in , antepartum [O16.9] 09/19/2013 01/08/2014 GBS (group B Streptococcus carrier), +RV cultur*11/11/2013 04/16/2014 [Z34.90] 11/22/2013 04/16/2014 Diabetes mellitus in (HCC) [O24.919] 12/25/2013 04/16/2014 Diabetic ketoacidosis without coma associated w*01/08/2014 02/04/2023 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] 01/08/2014 DVT prophylaxis [[id number]] 02/25/2014 04/16/2014 care and examination [Z39.2] 02/25/2014 [...] Encounter Status:Closed by KYARA LUIS on 10/19/23 [facility] 10-19-2023 History of Present illness Narrative Summary: TCM call TRANSITION CARE MANAGEMENT (TCM) FOLLOW-UP NOTE Provider Action/FYI Summary: TCM call placed to patient, no answer, message left to return my call at [phone] ext [phone] Regional Sales Trainer plan for next outreach: Will follow up Signature Kyara Luis RN October 19, 2023 documented in this encounter [facility] 10-17-2023 History and physi cristina note Note Date/Time October 17, 2023 11:24am [facility] Medical Records Department [address] [place] [address] History & Physical Exam 10/17/23 1120 MR#: [id number] Acct: [id number] Name: KATHLEEN VILLA Rep #:[id number] : [...] DKA and an known type I diabetic. [facility] Medical History Anxiety Borderline personality disorder Depression [...] gauge x 1/2 (Ultra-Thin II Insulin Pen [place]) #100 ea08/10/23 [Rx Last Taken Unknown] prochlorperazine [...] 88.4 H, Lymph % (Auto) 7.8 L, [place] % (Auto) 2.4, Eos % (Auto) 0.1, [...] was 6.7. * follows up with an website designer in [facility] in [place]. * last A1C from 08/07/2023 was 7 * #Gastroparesis in the setting of type 1 diabetes mellitus * on compazine. Add on phenergan prn * will benefit from metoclorpromide if nausea persists. * #Hypotension * BP is down in the 90s systolic. * will hydrate with IVF and trend. * DVT prpphylaxis: lovenox. Charges/Coding Visit Charges Inpatient E&M: 82812 Init Hosp L3 10/17/23 1554 <Electronically signed by Vita Jefferson MD> Cosigner Signature (if applicable): CC: Dr. Vita Jefferson MD; FUNMILAYO SMITH~ Signed [facility] Work Phone: 1(977) 133-335702-20-2024 Discharge summary Author Alexandro Garces [facility] October 17, 2023 11:38am Note Date/Time October 17, 2023 11:24am [facility] Medical Records Department [address] [place] [address] Emergency Department Summary 10/17/23 MR#: [id number] Acct: [id number] Name: KATHLEEN VILLA Rep #:[id number] : [...] gauge x 1/2 (Ultra-Thin II Insulin Pen [place]) #100 ea08/10/23 [Rx Last Taken Unknown] ibuprofen [...] Alvarez RN - Last Filed: 10/17/23 11:31> [facility] Narrative Medical decision making narrative: Patient placed on bricklayer. IV line initiated. Labwork obtained to evaluate [...] 88.4 H Lymph % (Auto) 7.8 L [place] % (Auto) 2.4 Eos % (Auto) 0.1 [...] Garces MD - Last Filed: 10/17/23 11:38> [facility] Narrative Medical decision making narrative: Patient placed on bricklayer. IV line initiated. Labwork obtained to evaluate [...] 88.4 H Lymph % (Auto) 7.8 L [place] % (Auto) 2.4 Eos % (Auto) 0.1 [...] minutes, Including time spent:, Discussing w/Patient &/or Family/Shuttleless Loom Weaver, Discussing w/Consultants, Arranging Admission or Transfer, Performing Direct Patient Care at Bedside and - (35 minutes) Discharge Plan Dx/Rx/DC Orders Clinical Impression: DKA (diabetic ketoacidosis), Tachycardia, Nausea & vomiting, Acute dehydration Disposition Disposition: Acute Care Hospital [facility] What to do if you have Problems For any increased pain, shortness of breath, bleeding, nausea or vomiting, chest pain, or any unexpected problems, contact your Primary Care Provider. Call [facility] ([phone]) or report to the closest Emergency Room. Call 911 if necessary. 10/17/23 1138 <Electronically signed by Alexandro Garces MD> Cosigner Signature (if applicable): 10/17/23 1131 <Electronically signed by Jacqueline Alvarez RN> CC: FUNMILAYO SMITH ~ Signed [facility] Work Phone: 1(492) 835-586202-15-2024 NoteHNO ID: [id number] Author: KYARA LUIS RN Service: ? Author Type: Registered Nurse Type: Progress Notes Filed: 10/12/2023 14:16 Note Text: Summary: PCC follow up PRIMARY CARE COORDINATION FOLLOW-UP NOTE Provider Action/FYI Patient identified by name and date of . YES Summary: PCC follow up placed to patient, has moved out of longterm, now sharing and apartment. Per patient is [...] 100 mg/dL or on a high statin Regional Sales Trainer plan for next outreach: Will follow up Signature Kyara Luis RN October 12, 2023[facility]24 NotePatient Outreach (MRCAC) DAISYKATHLEEN Richter ([id number]) 1995 F CHT Date Time Provider Department 10/12/23 KYARA LUIS [facility] During your visit today, we recorded the following information about you: Kyara Luis RN 10/12/2023 2:16 PM Signed PRIMARY CARE COORDINATION FOLLOW-UP NOTE Provider Action/FYI Patient identified by name and date of . YES Summary: PCC follow up placed to patient, has moved out of longterm, now sharing and apartment. Per patient is [...] 100 mg/dL or on a high statin Regional Sales Trainer plan for next outreach: Will follow up [...] LPN - Fully Assessed Reason for Visit: Military Analyst Chronic Care [8131] Prescriptions as of 10/12/2023 - promethazine (PHENERGAN) [...] (post-traumatic stress disorder) [F43.10] 12/25/2012 DVT prophylaxis [YDH5033] 12/25/2012 09/04/2013 DISPOSITION AND FOLLOW-UP [V999.01] 12/25/2012 09/04/2013 HTN (hypertension) [I10] Hypertension in , antepartum [O16.9] 09/19/2013 01/08/2014 GBS (group B Streptococcus carrier), +RV cultur*11/11/2013 04/16/2014 [Z34.90] 11/22/2013 04/16/2014 Diabetes mellitus in (HCC) [O24.919] 12/25/2013 04/16/2014 Diabetic ketoacidosis without coma associated w*01/08/2014 02/04/2023 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] 01/08/2014 DVT prophylaxis [YFI5163] 02/25/2014 04/16/2014 care and examination [Z39.2] 02/25/2014 [...] [K59.04] 11/18/2021 Menstrual i (more content not included)...[facility]02-15-2024 History of Present illness Narrative* Kyara Luis RN - 10/12/2023 1:55 PM EST Summary: PCC follow up PRIMARY CARE COORDINATION FOLLOW-UP NOTE Provider Action/FYI Patient identified by name and date of . YES Summary: PCC follow up placed to patient, has moved out of longterm, now sharing and apartment. Per patient is [...] 100 mg/dL or on a high statin Regional Sales Trainer plan for next outreach: Will follow up Signature Kyara Luis RN October 12, 2023 documented in this encounterK[facility]02-05-2024 Miscellaneous Notes* Telephone Encounter - Lisa Aguilar LPN - 10/02/2023 10:52 AM EST [employer] forms faxed to office for pump and CGM supplies, [employer] and [employer]. [employer] as back up. Completed forms and JOSE documentation faxed as requested. Lisa Aguilar LPN documented in this encounterK[facility]02-02-2024 NotePatient Outreach (MRCAC) KATHLEEN VILLA ([id number]) 1995 F CHT Date Time Provider Department 09/29/23 KYARA LUIS [facility] During your visit today, we recorded the following information about you: Kyara Luis RN 09/29/2023 11:04 AM Signed PRIMARY CARE COORDINATION FOLLOW-UP NOTE Provider Action/FYI Patient identified by name and date of . YES Summary: Follow up call placed to patient, states continues to have nausea, taking compazine. Per patient has been moved to different longterm in [place] and will not be moving to [place]. States blood sugars are stable. Using insurance for transportation and will need to call them to update her new address. Has all medications, taking as directed. Regional Sales Trainer plan for next outreach: Will follow up [...] LPN - Fully Assessed Reason for Visit: Military Analyst Chronic Care [3612] Prescriptions as of 09/29/2023 [...] [Q87.40] 12/25/2012 DM (diabetes mellitus) ([facility]) [E11.9] 12/25/2012 Gastroparesis due to DM (HCC) [E11.43, K31.84] 12/25/2012 PTSD (post-traumatic stress disorder) [F43.10] 12/25/2012 DVT prophylaxis [HTU4970] 12/25/2012 09/04/2013 DISPOSITION AND FOLLOW-UP [V999.01] 12/25/2012 09/04/2013 HTN (hypertension) [I10] Hypertension in , antepartum [O16.9] 09/19/2013 01/08/2014 GBS (group B Streptococcus carrier), +RV cultur*11/11/2013 04/16/2014 [Z34.90] 11/22/2013 04/16/2014 Diabetes mellitus in (HCC) [O24.919] 12/25/2013 04/16/2014 Diabetic ketoacidosis without coma associated w*01/08/2014 02/04/2023 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] 01/08/2014 DVT prophylaxis [NNB3334] 02/25/2014 04/16/2014 care and examination [Z39.2] 02/25/2014 [...] 02/07/2023 Encounter Status:Closed by KYARA LUIS on 09/29/23[facility] 09-29-2023 NoteHNO ID: [id number] Author: KYARA LUIS RN Service: ? Author Type: Registered Nurse Type: Progress Notes Filed: 09/29/2023 11:04 Note Text: Summary: PCC follow up PRIMARY CARE COORDINATION FOLLOW-UP NOTE Provider Action/FYI Patient identified by name and date of . YES Summary: Follow up call placed to patient, continues to have nausea, taking compazine. Per patient has been moved to different longterm in [place] and will not be moving to [place]. States blood sugars are stable. Using insurance for transportation and will need to call them to update her new address. Has all medications, taking as directed. Regional Sales Trainer plan for next outreach: Will follow up Signature Kyara Luis RN September 29, 2023[facility]02-02-2024 History of Present illness Narrative* Kyara Luis RN - 09/29/2023 10:48 AM ESTSummary: PCC follow up PRIMARY CARE COORDINATION FOLLOW-UP NOTE Provider Action/FYI Patient identified by name and date of . YES Summary: Follow up call placed to patient, continues to have nausea, taking compazine. Per patient has been moved to different longterm in [place] and will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 She recently switched to Humalog and said the pump was refilled with brand new insulin before admission. Continue with insulin regimen as written. Please call pharmacy with any questions. Pharmacist: Felicia Montes Date: 03/21/2023 Contact Information: [phone] or Vocera * Plan of Care - [...] normal T Waves: T waves normal normal AK interval QT Interval: 514 Clinical impression: non-specific [...] further evaluation and treatment. documented in this [id number] Note* Quick Note - Alta Teague RN - 03/22/2023 4:20 PM EDT Patient educated on discharge instructions including need for follow up, new medications, and symptoms to monitor for. Port heparinized and de-accessed. No further questions. [id number] Hospital course Narrative* Benito Jewell MD - 03/22/2023 1:34 PM EDT [facility] DISCHARGE SUMMARY -- [facility] Kathleen Villa Admitted: 03/20/2023 Discharge Date: 03/22/23 [...] on 03/22/23, 1:34 PM documented in this [id number] Note* Plan of Care - Alat Teague RN - 03/22/2023 11:21 AM EDT [...] of comfort function goal Outcome: Partially Met [id number] History of Present illness Narrative* Benito Jewell MD - 03/22/2023 8:36 AM EDT [facility] PROGRESS NOTE Assessment and Plan Kathleen Villa [...] Kathleen Villa Admit Date: 03/20/2023 MR #: [id number] : 1995 Current location: [facility] Physicians: Nya, Physician (Family); Dr Ireland (Referring) [...] fluid boluses and antiemetics and admitted to [facility] for further management. While in the ER the patients insulinpump apparently became dislodged and her BG began to increase. Patient has had diabetes for 13 years. Diagnosed at the age of 14. Patient is currently on 670G insulin pump with guardian sensor. Her endocrinology practices in [facility]. She follows with them regularly. Her most [...] Edmondson MD - 03/21/2023 4:30 PM EDT [facility] PROGRESS NOTE Assessment and Plan Kathleen Villa [...] that she follows with Dr. Stevens at [facility].) Care Plan Care Plan No documented in this [id number] Note* Quick Note - Liang Boothe RN [...] with no further needs at this time. [id number] Note* Plan of Care - Liang Boothe [...] of comfort function goal Outcome: Partially Met [id number] Note* Pharmacy Note - Felicia Montes RPh,PharmD [...] per the patient are well within the ethylene oxide panelboard operator expiration date and have been stored at roomtemperature (<28 days). She recently switched to Humalog and said the pump was refilled with brand new insulin before admission. Continue with insulin regimen as written. Please call pharmacy with any questions. Pharmacist: Felicia Montes Date: 03/21/2023 Contact Information: [phone] or Vocera [id number] Note* Plan of Care - Liang Boothe [...] of comfort function goal Outcome: Partially Met [id number] Note* Quick Note - Liang Purcell RN - 03/20/2023 6:32 PM EDT Admission skin assessment completed by this nurse and STIVEN Caceres. No skin issues identified at this time. T [id number] Note* Plan of Care - Liang Purcell [...] of comfort function goal Outcome: Partially Met [id number] Note* ED Procedure Note - Siddharth Gagnon [...] normal T Waves: T waves normal normal AK interval QT Interval: 514 Clinical impression: non-specific ECG and sinus bradycardia [facility] Work Phone: 1(957) 933-370307-24-2023 Emergency department Note* Zee Chahal RN - 03/20/2023 11:22 AM EDT Bed: 36 Expected date: Expected time: Means of arrival: Comments: ROOM 14 [id number] Emergency department Note* Zee Chahal RN - 03/20/2023 11:22 AM EDT Bed: 36 Expected date: Expected time: Means of arrival: Comments: ROOM 14 * Mariel Gagnon MD - 03/20/2023 6:01 AM EDTAssociated Order(s): EKG 12-lead [facility] ATTENDING NOTE: NAME: Kathleen Villa CSN: [id number] 27 y.o. PCP: No, Physician History: Chief [...] All other components within normal limits Narrative: [facility] has implemented the eGFR calculation approach that [...] All other components within normal limits Narrative: [facility] has implemented the eGFR calculation approach that [...] All other components within normal limits Narrative: [facility] has implemented the eGFR calculation approach that [...] Procedure Abnormality Status --------- ------ CBC Auto Differential[[id number]] Abnormal Final result Please view results for [...] RADIOLOGY: I did consider radiological studies for [facility] care today: CTA of the chest, abdomen, [...] available in inpatient encounters. Please contact a embedded systems engineer. Mariel Gagnon MD ED Attending Physician [facility] (Please note that portions of this note [...] 217about an hour ago documented in this [id number] History and physical note* Ernie Ireland MD - 03/20/2023 11:17 AM EDT [facility] HISTORY AND PHYSICAL -- [facility] Patient Name: Kathleen Villa : 1995 MR #: [id number] Admit Date: 03/20/2023 Physicians: No, Physician (Family); [...] fluid boluses and antiemetics and admitted to [facility] for further management. Past Medical History Past [...] normal coloration Psych: normal mood and affect [id number] History and physical note* Ernie Ireland MD - 03/20/2023 11:17 AM EDT [facility] HISTORY AND PHYSICAL -- [facility] Patient Name: Kathleen Villa : 1995 MR #: [id number] Admit Date: 03/20/2023 Physicians: No, Physician (Family); [...] fluid boluses and antiemetics and admitted to [facility] for further management. Past Medical History Past [...] normal mood and affect documented in this [id number] Note* ED Update Note - [place] [...] be admitted for further evaluation and treatment. [id number] Physician Emergency department Note* Mariel Gagnon MD - 03/20/2023 6:01 AM EDTAssociated Order(s): EKG 12-lead [facility] ATTENDING NOTE: NAME: Kathleen Villa CSN: [id number] 27 y.o. PCP: No, Physician History: Chief [...] All other components within normal limits Narrative: [facility] has implemented the eGFR calculation approach that [...] All other components within normal limits Narrative: [facility] has implemented the eGFR calculation approach that [...] All other components within normal limits Narrative: [facility] has implemented the eGFR calculation approach that [...] Procedure Abnormality Status --------- ------ CBC Auto Differential[[id number]] Abnormal Final result Please view results for [...] Note made of prior appendectomy surgical clips. [facility]/cdr Workstation ID: [id number] Procedures: EKG 12-lead Date/Time: [...] SDOH: Another factor that I considered in [facility] care was her Social Determinants of Health [...] RADIOLOGY: I did consider radiological studies for [facility] care today: CTA of the chest, abdomen, [...] available in inpatient encounters. Please contact a embedded systems engineer. Mariel Gagnon MD ED Attending Physician [facility] (Please note that portions of this note have been completed with a voice recognition software. Efforts were made to correct any errors, but occasionally words are mis-transcribed.) Mariel Gagnon MD 03/21/23 6737 [facility] Work Phone: 1(833) 310-820207-24-2023 Emergency department Note* Tony Hernandez RN - 03/20/2023 4:26 AM EDT PT STATES THAT SHE CAN NOT PROVIDE URINE SAMPLE AND SHE NEEDS STRAIGHT CATH PERFORMED. [id number] Emergency department Triage note* Queta Arias RN - 03/20/2023 2:17 AM EDT Pt c/o vomiting and abdominal pain that started today, also c/o chest pain, states last bgl was 217about an hour ago [id number] NotePatient Outreach (MRCAC) KATHLEEN VILLA ([id number]) 1995 F T Date Time Provider Department 02/08/23 KYARA LUIS [facility] During your visit today, we [...] with GI and medication changes made, will picker tender new medication from her pharmacy. States that [...] -Admitted for: Vomiting/diabetic gastroparesis -Pt discharged from [facility] on 02/04. -Follow up appointment: Has had f/u with GI, declines sooner PCP appointment at this time . -Medication review completed. NEW OR CHANGED MEDICATIONS:NA MEDS HELD/DISCONTINUED:NA BRIEF HOSPITAL COURSE: 27-year-old white female who presented 2 days ago on 01/31 secondary to nausea and vomiting at home. Patient has a known history of diabetic gastroparesis. She follows in clinic [facility]. She was admitted to [place]. Unfortunately she has not been tolerating p.o. intake with the exception of some ice chips Patient would be started on insulin drip while in the ICU. Anion gap would close and the patient would be transitioined to a diet. Blood sugars would remain stable once restarting her insulin pump. She will cotninue following with her personal website designer outpatient. Follow up with PCP in one [...] 4 gram chewable tablet (more content not included)...[facility]06-14-2023 NoteHNO ID: [id number] Author: Kyara Luis RN Service: ? Author [...] with GI and medication changes made, will picker tender new medication from her pharmacy. States that vomiting has resolved, tolerating diet, does have nausea and is on compazine and phenergan at home. Monitors blood sugar 5 times per day, FBS this am 131, has insulin pump and adjust according to carbohydrate intake. Currently waiting on continuous glucose monitor that was ordered at her last endocrinology appointment through [facility], patient calling today to follow up [...] -Admitted for: Vomiting/diabetic gastroparesis -Pt discharged from [facility] on 02/04. -Follow up appointment: Has had f/u with GI, declines sooner PCP appointment at this time . -Medication review completed. NEW OR CHANGED MEDICATIONS:NA MEDS HELD/DISCONTINUED:NA BRIEF HOSPITAL COURSE: 27-year-old white female who presented 2 days ago on 01/31 secondary to nausea and vomiting at home. Patient has a known history of diabetic gastroparesis. She follows in clinic [facility]. She was admitted to [place]. Unfortunately she has not been tolerating p.o. intake with the exception of some ice chips Patient would be started on insulin drip while in the ICU. Anion gap would close and the patient would be transitioined to a diet. Blood sugars would remain stable once restarting her insulin pump. She will cotninue following with her personal website designer outpatient. Follow up with PCP in one week. Vital signs were stable on discharge. Patient understood and agreed with discharge plan You may be receiving a survey about your experience. We really value your feedback. If you would fill out the survey, it would help us tremendously as we continue to improve. Kyara Luis RN February 08, 2023 11:36 [facility]06-14-2023 History of Present illness Narrative* Kyara Luis [...] with GI and medication changes made, will picker tender new medication from her pharmacy. States that [...] -Admitted for: Vomiting/diabetic gastroparesis -Pt discharged from [facility] on 02/04. -Follow up appointment: Has had f/u with GI, declines sooner PCP appointment at this time . -Medication review completed. NEW OR CHANGED MEDICATIONS:NA MEDS HELD/DISCONTINUED:NA BRIEF HOSPITAL COURSE: 27-year-old white female who presented 2 days ago on 01/31 secondary to nausea and vomiting at home. Patient has a known history of diabetic gastroparesis. [facility]. She was admitted to [place]. Unfortunately she has not been tolerating p.o. intake with the exception of some ice chips Patient would be started on insulin drip while in the ICU. Anion gap would close and the patient would be transitioined to a diet. Blood sugars would remain stable once restarting her insulin pump. She will cotninue following with her personal website designer outpatient. Follow up with PCP in one week. Vital signs were stable on discharge. Patient understood and agreed with discharge plan You may be receiving a survey about your experience. We really value your feedback. If you would fill out the survey, it would help us tremendously as we continue to improve. Kyara Luis RN February 08, 2023 11:36 AM documented in [facility] NotePatient Outreach (MRCAC) KATHLEEN VILLA ([id number]) 1995 F CHT Date Time Provider Department 02/06/23 KYARA LUIS During your visit today, we recorded the following information about you: Kyara Luis RN 02/06/2023 11:56 AM Signed TRANSITION CARE MANAGEMENT (TCM) FOLLOW-UP NOTE Provider Action/FYI Patient identified by name and date of : YES Summary: Transitional care call placed to patient, message left to return my call at [phone] ext [phone] Regional Sales Trainer plan for next outreach: Will follow up [...] 02/01/2023 Encounter Status:Closed by KYARA LUIS on 02/06/23[facility] 02-06-2023 NoteHNO ID: [id number] Author: Kyara Luis RN Service: ? Author Type: Registered Nurse Type: Progress Notes Filed: 02/06/2023 11:56 AM Note Text: Summary: TCM call TRANSITION CARE MANAGEMENT (TCM) FOLLOW-UP NOTE Provider Action/FYI Patient identified by name and date of : YES Summary: Transitional care call placed to patient, message left to return my call at [phone] Regional Sales Trainer plan for next outreach: Will follow up this week Signature Kyara Luis RN February 06, 2023[facility]06-09-2023 NoteHNO ID: [id number] Author: Clemencia Rivera RN Service: PICC Team Author Type: Registered Nurse Type: Procedures Filed: 02/03/2023 2:30 PM Note Text: MIDLINE INSERTION PROCEDURE NOTE - PICC TEAM NURSES DATE OF PROCEDURE: 02/03/2023 TIME OF PROCEDURE: 1420 ORDERING PHYSICIAN: Juan Carlos Leroy CNP Indications for line placement: Intravenous access Condition of line placement: Sterile Primary Proceduralist: Lewis Fuentes RN Cut Roll Machine Operator: Clemencia Rivera RN Pre-procedure Review: ALLERGIES Allergen [...] RN Midline Catheter Placement: Brand: BARD Lot: [id number] Number of lumens: 1 Type of Midline: Power Injectable Midline Lumen size: 3 [place] Placement Technique: Lidocaine: Yes, Lidocaine 1% Volume [...] or problems: Call Vascular Access Nurse on [facility] SIGNATURE: Clemencia Rivera RN PATIENT NAME: Kathleen Villa DATE: February 03, 2023 TIME: 2:24 PM PAGER: Call Vascular Access Nurse on [facility] 02-03-2023 NoteHNO ID: [id number] Author: Mary Ordoñez RN Service: Nursing Author Type: Registered Nurse Type: Nursing Progress Note Filed: 02/03/2023 1:55 PM Note Text: Vascular access team at bedside setting up for ordered midline IV placement at this time.[facility] – [place]06-09-2023 NoteHNO ID: [id number] Author: Rubio Diana MD Service: Critical Care Author Type: Physician Type: Progress Notes Filed: 02/03/2023 11:39 AM Note Text: [facility] STAFF PHYSICIAN NOTE OF PERSONAL INVOLVEMENT IN CARE I have reviewed the progress note obtained and documented by the ASHYL. I have personally performed a face to [...] of care, medical plan for the day, e business consultant recommendations, medical disposition and current medical [...] Diana MD [facility] DATE of SERVICE: 02/03/2023[facility] [place]06-09-2023 NoteHNO ID: [id number] Author: Yimi Leroy APRN.CNP Service: Critical Care [...] 21 URINALYSIS: Recent Lab (more content not included)...[facility] [place]06-08-2023 NoteHNO ID: [id number] Author: Rubio Diana MD Service: Critical Care Author Type: Physician Type: Progress Notes Filed: 02/02/2023 2:32 PM Note Text: [facility] STAFF PHYSICIAN NOTE OF PERSONAL INVOLVEMENT IN [...] of care, medical plan for the day, e business consultant recommendations, medical disposition and current medical [...] Diana MD [facility] DATE of SERVICE: 02/02/2023[facility] [place]06-08-2023 NoteHNO ID: [id number] Author: Alex Mccray MD Service: Hospital Medicine Author Type: Physician Type: Progress Notes Filed: 02/02/2023 9:37 AM Note Text: INPATIENT PROGRESS NOTE SERVICE DATE: 02/02/2023 SERVICE TIME: 9:03 AM SUBJECTIVE: CHIEF COMPLAINT: Nausea, vomiting, abdominal pain INTERVAL HPI: Patient seen and examined. Patient is 27-year-old female with history of diabetes, gastroparesis, follows with well treatment offsider at [facility] who presented for abdominal pain, nausea, vomiting [...] bilaterally.] SKIN: [Clear, no evidence of bleeding.] SUPPLY PLANNER: [Patient awake, alert, oriented ?3. No focal [...] with history of diabetes, gastroparesis, follows with well treatment offsider at [facility] who presented for abdominal pain, nausea, vomiting for 1 day and on evaluation she was thought to have gastroparesis episode for which s (more content not included)...[facility] [place]06-07-2023 NoteHNO ID: [id number] Author: Alex Mccray MD Service: Hospital Medicine Author Type: Physician Type: Progress Notes Filed: 02/02/2023 8:24 AM Note Text: INPATIENT PROGRESS NOTE SERVICE DATE: 02/01/2023 SERVICE TIME: 11:38 AM SUBJECTIVE: CHIEF COMPLAINT: Nausea, vomiting, abdominal pain INTERVAL HPI: Patient seen and examined. Patient is 27-year-old female with history of diabetes, gastroparesis, follows with well treatment offsider at [facility] who presented for abdominal pain, nausea, vomiting [...] bilaterally.] SKIN: [Clear, no evidence of bleeding.] SUPPLY PLANNER: [Patient awake, alert, oriented ?3. No focal [...] bowel. Consider CT if concern remains high. Drawbridge Tender: PSCB Transcribe Date/Time: Jan 31 2023 7:56P [...] QTC Calculation (Bazett) 463 ms Calculated P [place] 26 degrees Calculated R [place] 78 degrees Calculated T [place] 72 degrees Narrative NAME : KATHLEEN VILLA PID : [id number] : 1995 Gender : Female Race : ORD : [id number] Procedure Date : Jan 31 2023 19:42:30 Edit Date : Jan 31 2023 23:03:15 Diagnosis: Normal sinus rhythm Nonspecific T wave abnormality Abnormal ECG When compared with ECG of 23-NOV-2022 18:14, Nonspecific T wave abnormality now evident in Lateral leads QT has lengthened Confirmed by ANASTASIA CHENG MD ([id number]) on 01/31/2023 11:03:12 PM Test Reason : [...] has lengthened Confirmed by ANASTASIA CHENG MD ([id number]) on 01/31/2023 11:03:12 PM CBC + DIFF [...] 4.00 k/uL Monocytes % 4.7 % Abs [place] 0.73 <0.87 k/uL Eosinophils % 0.1 % Abs Eosin <0.03 <0.46 k/uL Basophils % 0.5 % Abs Baso 0.07 <0.11 k/uL (more content not included)...[facility] [place]06-07-2023 Miscellaneous Notes * Telephone Encounter - Radha Mandel MA - 02/01/2023 10:36 AM EDT Spoke with patient and she voiced understanding. * Telephone Encounter - Radha Mandel MA - 02/01/2023 10:35 AM EDT ----- Message from Vivi Smith MD sent at 01/27/2023 8:53 AM EDT ----- Please call and notify patient no signs of UTI on urine culture documented in this encounterK[facility]-31-2023 NoteHNO ID: [id number] Author: Radha Mandel MA Service: ? Author Type: Aircraft Pilot Type: Progress Notes Filed: 01/25/2023 1:01 PM Note Text: Patient here today to recollect urine as previous urine culture was contaminated. Patient concerned as that was her second collection with multiple bacteria. Urine collected, dipped, and sent out for culture.[facility] [place]05-31-2023 History of Present illness Narrative* Autumn Valadez [...] (BAQSIMI) 3 mg/actuation nasal spray Use 1 [place] in the nose as needed for low [...] Other maternal great grandma I reviewed the Aircraft Pilot's notes with this visit for vital signs, [...] office visit notes from today faxed to [facility] in order to receive her Guardian [...] long-term current use of insulin ([facility]) (primary encounter diagnosis) (Z96.41) Insulin [...] visit in 3 months with FRIEDA Urena APRN.SUPERVISOR AGRICULTURAL EDUCATION Endocrinology & Metabolism [place] Some elements in this note were copied from my last note and have been updated as appropriate and reflect medical decision making today. documented in this encounterKet[facility]05-31-2023 History of Present illness Narrative* Radha Mandel MA - 01/25/2023 12:59 PM EDT Patient here today to recollect urine as previous urine culture was contaminated. Patient concernedas that was her second collection with multiple bacteria. Urine collected, dipped, and sent out forculture. documented in this encounterKet[facility]05-31-2023 Miscellaneous Notes* Telephone Encounter - Radha Mandel MA - 01/25/2023 11:04 AM EDT Spoke with patient and she is concerned as she knows how to do a clean catch to collect a urine andit is showing multiple bacteria. Patient scheduled for SC to collect another urine. Please sign orders. [...] based on this specimen documented in this encounterKettering [facility]05-30-2023 Miscellaneous Notes* Telephone Encounter - Vivi Smith MD - 01/24/2023 11:58 AM EDT Port Flush order in Outbox on RX paper as unable to write order in Epic * Telephone Encounter - Radha Mandel MA - 01/24/2023 11:37 AM EDT Yaima from [facility] called and they need an order for a port flush. Pleaseplace order and I will fax. documented in this encounterKet[facility]05-26-2023 NoteHNO ID: [id number] Author: Nicolette Cox LPN Service: ? Author Type: LICENSED NURSE Type: Progress Notes Filed: 01/20/2023 3:16 PM Note Text: Gilda presents today for a 1 month follow up visit.Gilda continues to c/o abdominal pain that radiates to her back. She states she did not follow up with pain management.[facility] [place]05-26-2023 NoteHNO ID: [id number] Author: Vivi Smith MD Service: ? Author [...] 200s/. She sees Endo next week. Seeing RETAIL ASSOCIATE and had recent negative pap smear and [...] (BAQSIMI) 3 mg/actuation nasal spray Use 1 [place] in the nose as needed for low [...] movements intact. Conjunctiva/sclera: Conjunc (more content not included)...[facility] [place] 01-12-2023 NoteHNO ID: [id number] Author: Madonna Toro, DO Service: ? Author [...] fevers GI: No nausea, vomiting, or diarrhea DIRECTOR OF DEMENTIA OPERATIONS: Negative for abnormal vaginal bleeding, abnormal vaginal [...] 2 IG Call with results. Madonna Toro, [facility]05-18-2023 NoteHNO ID: [id number] Author: Faviola Engle MA Service: ? Author Type: Aircraft Pilot Type: Progress Notes Filed: 01/12/2023 1:32 PM Note Text: Pt was exposed to a std.[facility] [place]05-16-2023 Miscellaneous Notes* Telephone Encounter - Dori Chapman RN - 01/10/2023 8:58 AM EDT I called pt - pt confirmed 1:00p on Thursday documented in this encounterK[facility]05-09-2023 Miscellaneous Notes* Telephone Encounter - Lucius Santillan [...] forwarded to: SILVINO Trujillo documented in this encounterKettering [facility]04-14-2023 Miscellaneous Notes* Telephone Encounter - Nicolette Cox [...] message for Dr. Johansen who is [facility], GI doctor she previously seen. She states she was sent home with a prescription for hydrocodone #12 tablets. She is asking if you can continue to prescribe pain medication until she gets in with GI doctor. Please advise. She states she scheduled a follow up appt with you on 01/20/23 but wants to know if you want to seeher sooner. documented in this encounterKettering [facility]04-13-2023 History of Present illness Narrative* Nicolette Cox [...] admissions. Discharge Summary Fide Pitts MD (Physician) [facility] Medicine Expand All Collapse All DISCHARGE SUMMARY [...] long-term current use of insulin ([facility]); Insulin pump status LINZESS 72 [...] long-term current use of insulin ([facility]); Insulin pump status blood sugar diagnostic (CONTOUR NEXT TEST STRIPS) test strip Use as instructed to check blood glucose 5 times daily. E10.65 Qty: 500 Strip Refills: 3 Associated Diagnoses:Type 1 diabetes mellitus with hyperglycemia, with long-term current use of insulin ([facility]); Insulin pump status BAQSIMI 3 mg Use 3 mg in the nose as needed for low blood sugar. <span hidden class=[email or web address]></span>May repeat after 15 minutes using a new device if there is no response. Qty: 2 Each Refills: 2 Associated Diagnoses:Type 1 diabetes mellitus with hyperglycemia, with long-term current use of insulin ([facility]); Insulin pump status glucose 16 g Take 16 g by mouth as needed. Qty: 100 tablet Refills: 11 Associated Diagnoses:Type 1 diabetes mellitus with hyperglycemia, with long-term current use of insulin ([facility]); Insulin pump status insulin glargine (LANTUS SOLOSTAR, BASAGLAR KWIKPEN) 100 unit/mL (3 mL) Inject 43 Units subcutaneously as directed in the event of Insulin pump failure. Qty: 15 mL Refills: 1 Comments: Generic or brand: dispense product preferred by patient/insurance unless BRET flag is selected. Associated Diagnoses:Type 1 diabetes mellitus with hyperglycemia, with long-term current use of insulin ([facility]); Insulin pump status Acetone, Urine, [...] Care Provider Provider Name Dr. Smith Address [address] [place] [address], [place] [address] Appointment Date 12/08/22 Appointment Time 1:45pm The [...] type 1 with gastroparesis: Patient follows with well treatment offsider Dr. Leticia Hylton with several smart pill [...] tree and pancreatic region SIGNATURE: Kathleen Hicks, FAMILY PROGRAM SPECIALIST.SUPERVISOR AGRICULTURAL EDUCATION PAST MEDICAL HISTORY Diagnosis Date Anxiety disorder [...] (BAQSIMI) 3 mg/actuation nasal spray Use 1 [place] in the nose as needed for low [...] 1. Gastroparesis due to DM ([facility]) E11.43 K31.84 2. Aortic root aneurysm ([facility]) I71.21 3. Primary hypertension I10 4. Chronic nausea R11.0 5. 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 ([facility]) E10.3553 6. Marfan syndrome Q87.40 7. PTSD (post-traumatic stress disorder) F43.10 8. Generalized abdominal pain R10.84 Per Hospital note reviewed but patient states her pain is different Will refer down to [facility] ED for further evaulation Stable at the moment Unclear etiology On Insulin Pump. HBA1c 3 months ago was 7 Noted Stable Pain out of portion. Sent by private vehicle to rule out blood clot/mesenteric ischemia and furtheretiologies. Vivi Smith MD documented in this encounterKet[facility]04-10-2023 Miscellaneous Notes* Telephone Encounter - Lisa Aguilar LPN - 12/05/2022 3:09 PM EDT Form faxed to [facility]. Lisa Aguilar LPN * Telephone Encounter - Autumn Valadez APRN.FRIEDA - 12/05/2022 12:32 PM EDT Signed Autumn Valadez APRN.FRIEDA * Telephone Encounter - Lisa Aguilar LPN - 12/05/2022 10:04 AM EDT JOSE:08/16/2022 NOV: 12/07/2022 Called patient Verified she has new pump medtronic 770G and will be meeting with [facility] for education on newpump. Patient currently has [...] 11/07/2022 3:19 PM EDT Received form from [facility] Medical Form, 6 months of OV notes and CGM download on desk, please sign * Telephone Encounter - Lisa Aguilar LPN - 11/04/2022 11:15 AM EST Completed form faxed to [facility]. Lisa Aguilar LPN * Telephone Encounter - Kvng Lewis MD - 11/02/2022 3:36 PM EST Form signed on my desk. * Telephone Encounter - Lisa Aguilar LPN - 11/02/2022 3:03 PM EST JOSE: 08/16/2022 NOV: 12/07/2022 Forms placed on Provider's desk. Please review and advise. Thank You, Lisa Aguilar LPN * Telephone Encounter - Rose Hayes Pss - 10/31/2022 12:55 PM EST Patient has been identified by name and date of : Yes Type of form: [facility] / CGM Form received via: Fax When form is completed, fax form to fax number provided.[phone] Form has been forwarded to: SILVINO Hayes Pss documented in this encounterK[facility]03-29-2023 History of Past illness Narrative* Problem Noted [...] 02/25/2014 morning - On fentanyl gtt per AGRONOMIST Plan: - AGRONOMIST team to round on patient and manage [...] arise --- Follows with Dr. Garcia at [facility] Plan: - Continuous monitoring - F/u AGRONOMIST recs GBS (group B Streptococcus carrier), +RV culture @ 22 wks 11/11/2013 04/16/2014 Hypertension in , antepartum 09/19/2013 01/08/2014 DVT prophylaxis 12/25/2012 09/04/2013 Overview: IPCs DISPOSITION AND FOLLOW-UP 12/25/20122013 Overview: Full code Retinal detachment 10/26/2012 12/25/2012 documented as of this encounter (statuses as of 12/09/2022) [facility] History of Past illness Narrative* Problem Noted [...] 02/25/2014 morning - On fentanyl gtt per AGRONOMIST Plan: - AGRONOMIST team to round on patient and manage [...] arise --- Follows with Dr. Garcia at [facility] Plan: - Continuous monitoring - F/u AGRONOMIST recs GBS (group B Streptococcus carrier), +RV culture @ 22 wks 11/11/2013 04/16/2014 Hypertension in , antepartum 09/19/2013 01/08/2014 DVT prophylaxis 12/25/2012 09/04/2013 Overview: IPCs DISPOSITION AND FOLLOW-UP 12/25/20122013 Overview: Full code Retinal detachment 10/26/2012 12/25/2012 documented as of this encounter (statuses as of 12/09/2022) [facility] History of Past illness Narrative* Problem Noted [...] 02/25/2014 morning - On fentanyl gtt per AGRONOMIST Plan: - AGRONOMIST team to round on patient and manage [...] arise --- Follows with Dr. Garcia at [facility] Plan: - Continuous monitoring - F/u AGRONOMIST recs GBS (group B Streptococcus carrier), +RV culture @ 22 wks 11/11/2013 04/16/2014 Hypertension in , antepartum 09/19/2013 01/08/2014 DVT prophylaxis 12/25/2012 09/04/2013 Overview: IPCs DISPOSITION AND FOLLOW-UP 12/25/20122013 Overview: Full code Retinal detachment 10/26/2012 12/25/2012 documented as of this encounter (statuses as of 01/03/2023) [facility] History of Past illness Narrative* Problem Noted [...] 02/25/2014 morning - On fentanyl gtt per AGRONOMIST Plan: - AGRONOMIST team to round on patient and manage [...] arise --- Follows with Dr. Garcia at [facility] Plan: - Continuous monitoring - F/u AGRONOMIST recs GBS (group B Streptococcus carrier), +RV culture @ 22 wks 11/11/2013 04/16/2014 Hypertension in , antepartum 09/19/2013 01/08/2014 DVT prophylaxis 12/25/2012 09/04/2013 Overview: IPCs DISPOSITION AND FOLLOW-UP 12/25/20122013 Overview: Full code Retinal detachment 10/26/2012 12/25/2012 documented as of this encounter (statuses as of 01/10/2023) [facility] History of Past illness Narrative* Problem Noted [...] 02/25/2014 morning - On fentanyl gtt per AGRONOMIST Plan: - AGRONOMIST team to round on patient and manage [...] arise --- Follows with Dr. Garcia at [facility] Plan: - Continuous monitoring - F/u AGRONOMIST recs GBS (group B Streptococcus carrier), +RV culture @ 22 wks 11/11/2013 04/16/2014 Hypertension in , antepartum 09/19/2013 01/08/2014 DVT prophylaxis 12/25/2012 09/04/2013 Overview: IPCs DISPOSITION AND FOLLOW-UP 12/25/20122013 Overview: Full code Retinal detachment 10/26/2012 12/25/2012 documented as of this encounter (statuses as of 01/24/2023) [facility] History of Past illness Narrative* Problem Noted [...] 02/25/2014 morning - On fentanyl gtt per AGRONOMIST Plan: - AGRONOMIST team to round on patient and manage [...] arise --- Follows with Dr. Garcia at [facility] Plan: - Continuous monitoring - F/u AGRONOMIST recs GBS (group B Streptococcus carrier), +RV culture @ 22 wks 11/11/2013 04/16/2014 Hypertension in , antepartum 09/19/2013 01/08/2014 DVT prophylaxis 12/25/2012 09/04/2013 Overview: IPCs DISPOSITION AND FOLLOW-UP 12/25/20122013 Overview: Full code Retinal detachment 10/26/2012 12/25/2012 documented as of this encounter (statuses as of 01/25/2023) [facility] History of Past illness Narrative* Problem Noted [...] 02/25/2014 morning - On fentanyl gtt per AGRONOMIST Plan: - AGRONOMIST team to round on patient and manage [...] arise --- Follows with Dr. Garcia at [facility] Plan: - Continuous monitoring - F/u AGRONOMIST recs GBS (group B Streptococcus carrier), +RV culture @ 22 wks 11/11/2013 04/16/2014 Hypertension in , antepartum 09/19/2013 01/08/2014 DVT prophylaxis 12/25/2012 09/04/2013 Overview: IPCs DISPOSITION AND FOLLOW-UP 12/25/20122013 Overview: Full code Retinal detachment 10/26/2012 12/25/2012 documented as of this encounter (statuses as of 01/25/2023) [facility] History of Past illness Narrative* Problem Noted [...] 02/25/2014 morning - On fentanyl gtt per AGRONOMIST Plan: - AGRONOMIST team to round on patient and manage [...] arise --- Follows with Dr. Garcia at [facility] Plan: - Continuous monitoring - F/u AGRONOMIST recs GBS (group B Streptococcus carrier), +RV culture @ 22 wks 11/11/2013 04/16/2014 Hypertension in , antepartum 09/19/2013 01/08/2014 DVT prophylaxis 12/25/2012 09/04/2013 Overview: IPCs DISPOSITION AND FOLLOW-UP 12/25/20122013 Overview: Full code Retinal detachment 10/26/2012 12/25/2012 documented as of this encounter (statuses as of 01/25/2023) [facility] History of Past illness Narrative* Problem Noted [...] 02/25/2014 morning - On fentanyl gtt per AGRONOMIST Plan: - AGRONOMIST team to round on patient and manage [...] arise --- Follows with Dr. Garcia at [facility] Plan: - Continuous monitoring - F/u AGRONOMIST recs GBS (group B Streptococcus carrier), +RV culture @ 22 wks 11/11/2013 04/16/2014 Hypertension in , antepartum 09/19/2013 01/08/2014 DVT prophylaxis 12/25/2012 09/04/2013 Overview: IPCs DISPOSITION AND FOLLOW-UP 12/25/20122013 Overview: Full code Retinal detachment 10/26/2012 12/25/2012 documented as of this encounter (statuses as of 01/26/2023) [facility] History of Past illness Narrative* Problem Noted [...] 02/25/2014 morning - On fentanyl gtt per AGRONOMIST Plan: - AGRONOMIST team to round on patient and manage [...] arise --- Follows with Dr. Garcia at [facility] Plan: - Continuous monitoring - F/u AGRONOMIST recs GBS (group B Streptococcus carrier), +RV culture @ 22 wks 11/11/2013 04/16/2014 Hypertension in , antepartum 09/19/2013 01/08/2014 DVT prophylaxis 12/25/2012 09/04/2013 Overview: IPCs DISPOSITION AND FOLLOW-UP 12/25/20122013 Overview: Full code Retinal detachment 10/26/2012 12/25/2012 documented as of this encounter (statuses as of 01/26/2023) [facility] History of Past illness Narrative* Problem Noted [...] 02/25/2014 morning - On fentanyl gtt per AGRONOMIST Plan: - AGRONOMIST team to round on patient and manage [...] arise --- Follows with Dr. Garcia at [facility] Plan: - Continuous monitoring - F/u AGRONOMIST recs GBS (group B Streptococcus carrier), +RV culture @ 22 wks 11/11/2013 04/16/2014 Hypertension in , antepartum 09/19/2013 01/08/2014 DVT prophylaxis 12/25/2012 09/04/2013 Overview: IPCs DISPOSITION AND FOLLOW-UP 12/25/20122013 Overview: Full code Retinal detachment 10/26/2012 12/25/2012 documented as of this encounter (statuses as of 02/01/2023) [facility] History of Present illness Narrative* Abelardo La [...] (BAQSIMI) 3 mg/actuation nasal spray Use 1 [place] in the nose as needed for low [...] as needed Abelardo La documented in this encounterKettering [facility]03-09-2023 Miscellaneous Notes* Telephone Encounter - Florence Murillo RN - 11/03/2022 3:24 PM EST Situation handled in different encounter * Telephone Encounter - Jackeline Estrada [facility] - 11/02/2022 4:28 PM EST Patient has been identified by name and date of : Yes Type of form: Pump and CGM Physician's order/record request/demo sheet/insurance Form received via: Fax When form is completed, fax form to fax number provided. Form has been forwarded to: Provider's mailbox. Provider name: Dr Joshua Estrada Pss documented in this encounterKettering [facility]02-25-2023 History of Present illness Narrative* Mary Cha [...] (BAQSIMI) 3 mg/actuation nasal spray Use 1 [place] in the nose as needed for low [...] INTRAMUSCULAR SOLUTION Abelardo La documented in this encounterKettering Health [facility]02-07-2023 History of Present illness Narrative* Leesa Huddleston PA-C - 10/04/2022 2:00 PM EST DATE OF SERVICE: 10/04/2022 PATIENT NAME: Kathleen Villa : 1995 AGE: 27 y.o. CLINIC NUMBER: [id number] Visit type: Established patient Chief Complaint Patient [...] 2:01 PM REFERRING MD: documented in this [facility]01-11-2023 Miscellaneous Notes* Telephone Encounter - David De Jesus RN - 09/07/2022 4:16 PM EST Completed PA via [employer]. CaseId:[id number]; Status:Approved; Valid08/08/2022 - 09/07/2023; Patient notified. * [...] medtronic pump, if possible. documented in this encounterKettering [facility]12-22-2022 Miscellaneous Notes* Telephone Encounter - Lisa Aguilar LPN - 08/18/2022 3:37 PM EST Faxed completed form, last 2 Visit Progress Notes and pump upload to [facility] medical. Lisa Aguilar LPN * Telephone Encounter - Autumn Valadez APRN.CNP - 08/18/2022 3:28 PM EST Formsigned Autumn Valadez APRN.SUPERVISOR AGRICULTURAL EDUCATION * Telephone Encounter - Lisa Aguilar LPN [...] PM EST Forms received via fax from [facility] for CGM and pump supplies. [facility] is requiring Last 2 office [...] you, Lisa Aguilar LPN documented in this encounterKettering [facility]12-20-2022 History of Present illness Narrative* Autumn Valadez [...] (BAQSIMI) 3 mg/actuation nasal spray Use 1 [place] in the nose as needed for low [...] Other maternal great grandma I reviewed the Aircraft Pilot's notes with this visit for vital signs, [...] long-term current use of insulin ([facility]) (primary encounter diagnosis) (Z96.41) Insulin [...] November with Dr. Lewis 6 mo with de Autumn Valadez APRN.FRIEDA Endocrinology & Metabolism [place] documented in this encounterKettering [facility]11-14-2022 History of Present illness Narrative* Kvng Lewis MD - 07/11/2022 11:00 AM EST VIRTUAL VISIT DIABETES NOTE Reason for Consultation: DM Type 1 HISTORY OF PRESENT ILLNESS: Ms. Villa is a 26 year old female presenting here today for a follow up of DM Type 1. She would like to transfer to care Dr. Khoury Lives in [place] Type 1 dx age 14 ( 12 [...] due to convenient location She lives in [place]. Dr. Khoury was managing patient during her she delivered a 7lbs 2oz baby girl by 01/2016. Unfortunately her daughter in May 2017 unexpectedly. She has hx of Marfan's syndrome with dilated aortic root. She was diagnosed with type 1 diabetes atage 14. Historically she has had very difficult to manage diabetes, very labile BG (even while inpatient) according to Dr. Khoruy . Having continued issues with nausea, gastroparesis [...] mouth every 6 hours as needed. lancets (XanEdu LANCETS) 30 gauge 10 x daily DX [...] year old female is being evaluated via [facility] for DM1 Complicated patient with complex PMH [...] encourage patient to schedule appt with our APPRENTICESHIP CONSULTANT Autumn Valadez in the next 1-3 mos in person See me after 3 mos after h/o abnormal TSH I have place another order for TSH/ Free T4 and TPO AB Will also place another order for HGa1c as it is has been over 6mos Kvng Lewis MD I spent a total of 40 minutes on the date of the service which included [id number] patient care, completing clinical documentation, performing a [...] Yes Heat Intolerance?: Yes documented in this [facility]11-09-2022 Miscellaneous Notes* Telephone Encounter - Lisa Aguilar LPN - 07/06/2022 12:21 PM EST Called patient, left message to call office. Also, sent detailed Celergot message re: upcoming Virtual appointment. Lisa Aguilar LPN * Telephone Encounter - Ira Maria - 07/06/2022 12:15 PM EST Pt calling, says she is returning call from nurse, does not remember the name of the nurse. She can be reached at [phone] documented in this [facility]10-20-2022 Miscellaneous Notes* Telephone Encounter - Anahi Benito MA - 06/16/2022 9:29 AM EDT Received [employer] form and placed on physicians desk for review. Form faxed with confirmation. documented in this [facility]10-12-2022 Miscellaneous Notes* Telephone Encounter - David De [...] fax form to fax number provided # [phone] Form has been forwarded to: SILVINO/nidia documented in this [facility]10-11-2022 History of Present illness Narrative* Phoebe Mckeon APRN.SUPERVISOR AGRICULTURAL EDUCATION - 06/07/2022 2:25 PM EDT Kathleen Villa [...] done swinging. RTC- 1 yr/prn Phoebe Mckeon APRN.SUPERVISOR AGRICULTURAL EDUCATION documented in this [facility]10-11-2022 Nurse Note* Alysha Petersen MA - 06/07/2022 2:11 PM EDT Pt is here today for JASON. Pt has no concerns at this time. documented in this [facility]09-16-2022 Miscellaneous Notes* Telephone Encounter - Anahi Benito MA - 05/13/2022 12:23 PM EDT Received [employer] forms for pump/cgm supplies. Patient next visit is in June and has not been seen since 08/24/2021. Olery message sent to patient requesting pump upload. documented in this [facility]09-15-2022 Nurse Note* Zohreh Rodarte LPN - 05/12/2022 10:15 AM EDT Pt given 2 doses of Rocephin 250 mg, total 500 mg in the left buttock. Pt tolerated injection well.BP 110/70. documented in this [facility]09-15-2022 History of Present illness Narrative* Phoebe Mckeon APRN.CNP - 05/12/2022 9:34 AM EDT . documented in this [facility]09-13-2022 Miscellaneous Notes* Telephone Encounter - Dori Chapman [...] wks for a JASON Thanks Phoebe Mckeon APRN.SUPERVISOR AGRICULTURAL EDUCATION documented in this [facility]09-07-2022 Miscellaneous Notes* Telephone Encounter - Sol Choe [...] for insulin aspart U-100 [facility] Miscellaneous Notes* Telephone Encounter - Darnell Vera RN - 05/03/2022 11:49 AM EDT Pended - please file if appropriate. documented in this [facility]09-06-2022 Miscellaneous Notes* Telephone Encounter - Clemencia Ma [...] needs scheduled appointment Yes [facility] Instructions* Patient Instructions* Dashawn Cain APRN.CNP - 04/18/2022 8:39 AM EDT Labs ordered- urine tests. Have done at Urgent care or [facility]. We will call with results. Referral placed to DIRECTOR OF DEMENTIA OPERATIONS clinic at [facility]. This should get in contact with you within the next couple weeks if not you may call central scheduling at [phone] to inquire about your appointment. documented in this [facility]08[facility]-2022 History of Present illness Narrative* Dashawn Cain APRN.CNP - 04/18/2022 8:22 AM EDT This note was created using Shopsyriter. Subjective Kathleen Villa is a 26 year [...] apparently. She does not have a current AGRONOMIST. Her previous DIRECTOR OF DEMENTIA OPERATIONS is Dr. Kristin Garcia at [facility]. She had noticed some mild discharge. She [...] TABLET This note was partially generated using Ekinops voice recognition system. Dashawn Cain APRN.SUPERVISOR AGRICULTURAL EDUCATION documented in this [facility]2022 History of Present illness Narrative* Teressa Mckoy RN - 03/11/2022 1:10 PM EDT 2mg/2ml Activase instilled in port at 1207. Blood return obtained at 1255. 10ml withdrawn and discarded. Port flushed with saline and heparin per protocol. documented in this [facility]07-11-2022 History of Present illness Narrative* Teressa Mckoy RN - 03/07/2022 4:38 PM EDT Unable to obtain blood return. Will notify ordering practitioner for Activase order. Patient reports unable to stay today. Will return Monday03/11/22. documented in this [facility]06[facility]2022 [facility]05-06-2022 Miscellaneous Notes* Telephone Encounter - Anahi Haywood MA - 12/31/2021 11:44 AM EDT Received [facility] Medical request for most recent office notes and CGM data. Office notes printed for physicians signature. Called patient on mobile number and advised if she can upload her pump. Patient stated she is not at home and will upload as soon as she can. Advised patient no problem and she cansend Glowbl message once upload is completed. Patient voiced understanding. documented in this [facility]05[facility]-2022 [facility]05-03-2022 Evaluation + Plan note Diagnostic Tests Pending * Complete Metabolic Panel 12/28/21 * Lipase Level 12/28/21 [facility] 04-30-2022 [facility]04-30-2022 Miscellaneous Notes* Telephone Encounter - Velia Kaur MD - 12/25/2021 12:42 PM EDT Patient contacted nurse soil conservation aide. She is out of infusion sets for [...] she has any difficulties. documented in this [facility]04-11-2022 Miscellaneous Notes* Telephone Encounter - Loretta Brown Ma - 12/06/2021 9:00 AM EDT received a fax from [facility] Patient has been approved for insulin aspart U-100 (NOVOLOG U-100 INSULIN ASPART) 100 unit/mL from 11/02/2021 to 12/04/2022 No further action is needed documented in this [facility]02[facility]28-2022 [facility]02-25-2022 [facility]02-15-2022 Miscellaneous Notes* Telephone Encounter - Jess Guardado - 10/12/2021 10:25 AM EST Left VM for patient to call office to offer sooner apt with JOCELYNE Mcdonald. documented in this [facility]10-09-2021 [facility]06-02[facility]2016 History of Past illness Narrative* Problem [...] 02/25/2014 morning - On fentanyl gtt per AGRONOMIST Plan: - AGRONOMIST team to round on patient and manage [...] arise --- Follows with Dr. Garcia at [facility] Plan: - Continuous monitoring - F/u AGRONOMIST recs GBS (group B Streptococcus carrier), +RV culture @ 22 wks 11/11/2013 04/16/2014 Hypertension in , antepartum 09/19/2013 01/08/2014 DVT prophylaxis 12/25/2012 09/04/2013 Overview: IPCs DISPOSITION AND FOLLOW-UP 12/25/20122013 Overview: Full code Retinal detachment 10/26/2012 12/25/2012 documented as of this encounter (statuses as of 11/26/2021) [facility] History of Past illness Narrative* Problem Noted [...] 02/25/2014 morning - On fentanyl gtt per AGRONOMIST Plan: - AGRONOMIST team to round on patient and manage [...] arise --- Follows with Dr. Garcia at [facility] Plan: - Continuous monitoring - F/u AGRONOMIST recs GBS (group B Streptococcus carrier), +RV culture @ 22 wks 11/11/2013 04/16/2014 Hypertension in , antepartum 09/19/2013 01/08/2014 DVT prophylaxis 12/25/2012 09/04/2013 Overview: IPCs DISPOSITION AND FOLLOW-UP 12/25/20122013 Overview: Full code Retinal detachment 10/26/2012 12/25/2012 documented as of this encounter (statuses as of 11/27/2021) [facility] History of Past illness Narrative* Problem Noted [...] 02/25/2014 morning - On fentanyl gtt per AGRONOMIST Plan: - AGRONOMIST team to round on patient and manage [...] arise --- Follows with Dr. Garcia at [facility] Plan: - Continuous monitoring - F/u AGRONOMIST recs GBS (group B Streptococcus carrier), +RV culture @ 22 wks 11/11/2013 04/16/2014 Hypertension in , antepartum 09/19/2013 01/08/2014 DVT prophylaxis 12/25/2012 09/04/2013 Overview: IPCs DISPOSITION AND FOLLOW-UP 12/25/20122013 Overview: Full code Retinal detachment 10/26/2012 12/25/2012 documented as of this encounter (statuses as of 12/06/2021) [facility] History of Past illness Narrative* Problem Noted [...] 02/25/2014 morning - On fentanyl gtt per AGRONOMIST Plan: - AGRONOMIST team to round on patient and manage [...] arise --- Follows with Dr. Garcia at [facility] Plan: - Continuous monitoring - F/u AGRONOMIST recs GBS (group B Streptococcus carrier), +RV culture @ 22 wks 11/11/2013 04/16/2014 Hypertension in , antepartum 09/19/2013 01/08/2014 DVT prophylaxis 12/25/2012 09/04/2013 Overview: IPCs DISPOSITION AND FOLLOW-UP 12/25/20122013 Overview: Full code Retinal detachment 10/26/2012 12/25/2012 documented as of this encounter (statuses as of 12/26/2021) [facility] History of Past illness Narrative* Problem Noted [...] 02/25/2014 morning - On fentanyl gtt per AGRONOMIST Plan: - AGRONOMIST team to round on patient and manage [...] arise --- Follows with Dr. Garcia at [facility] Plan: - Continuous monitoring - F/u AGRONOMIST recs GBS (group B Streptococcus carrier), +RV culture @ 22 wks 11/11/2013 04/16/2014 Hypertension in , antepartum 09/19/2013 01/08/2014 DVT prophylaxis 12/25/2012 09/04/2013 Overview: IPCs DISPOSITION AND FOLLOW-UP 12/25/20122013 Overview: Full code Retinal detachment 10/26/2012 12/25/2012 documented as of this encounter (statuses as of 12/27/2021) [facility] History of Past illness Narrative* Problem Noted [...] 02/25/2014 morning - On fentanyl gtt per AGRONOMIST Plan: - AGRONOMIST team to round on patient and manage [...] arise --- Follows with Dr. Garcia at [facility] Plan: - Continuous monitoring - F/u AGRONOMIST recs GBS (group B Streptococcus carrier), +RV culture @ 22 wks 11/11/2013 04/16/2014 Hypertension in , antepartum 09/19/2013 01/08/2014 DVT prophylaxis 12/25/2012 09/04/2013 Overview: IPCs DISPOSITION AND FOLLOW-UP 12/25/20122013 Overview: Full code Retinal detachment 10/26/2012 12/25/2012 documented as of this encounter (statuses as of 12/29/2021) [facility] of Past illness Narrative* Problem Noted [...] 02/25/2014 morning - On fentanyl gtt per AGRONOMIST Plan: - AGRONOMIST team to round on patient and manage [...] arise --- Follows with Dr. Garcia at [facility] Plan: - Continuous monitoring - F/u AGRONOMIST recs GBS (group B Streptococcus carrier), +RV culture @ 22 wks 11/11/2013 04/16/2014 Hypertension in , antepartum 09/19/2013 01/08/2014 DVT prophylaxis 12/25/2012 09/04/2013 Overview: IPCs DISPOSITION AND FOLLOW-UP 12/25/20122013 Overview: Full code Retinal detachment 10/26/2012 12/25/2012 documented as of this encounter (statuses as of 01/28/2022) [facility] of Past illness Narrative* Problem Noted [...] 02/25/2014 morning - On fentanyl gtt per AGRONOMIST Plan: - AGRONOMIST team to round on patient and manage [...] arise --- Follows with Dr. Garcia at [facility] Plan: - Continuous monitoring - F/u AGRONOMIST recs GBS (group B Streptococcus carrier), +RV culture @ 22 wks 11/11/2013 04/16/2014 Hypertension in , antepartum 09/19/2013 01/08/2014 DVT prophylaxis 12/25/2012 09/04/2013 Overview: IPCs DISPOSITION AND FOLLOW-UP 12/25/20122013 Overview: Full code Retinal detachment 10/26/2012 12/25/2012 documented as of this encounter (statuses as of 01/30/2022) [facility] of Past illness Narrative* Problem Noted [...] 02/25/2014 morning - On fentanyl gtt per AGRONOMIST Plan: - AGRONOMIST team to round on patient and manage [...] arise --- Follows with Dr. Garcia at [facility] Plan: - Continuous monitoring - F/u AGRONOMIST recs GBS (group B Streptococcus carrier), +RV culture @ 22 wks 11/11/2013 04/16/2014 Hypertension in , antepartum 09/19/2013 01/08/2014 DVT prophylaxis 12/25/2012 09/04/2013 Overview: IPCs DISPOSITION AND FOLLOW-UP 12/25/20122013 Overview: Full code Retinal detachment 10/26/2012 12/25/2012 documented as of this encounter (statuses as of 02/24/2022) [facility] of Past illness Narrative* Problem Noted [...] 02/25/2014 morning - On fentanyl gtt per AGRONOMIST Plan: - AGRONOMIST team to round on patient and manage [...] arise --- Follows with Dr. Garcia at [facility] Plan: - Continuous monitoring - F/u AGRONOMIST recs GBS (group B Streptococcus carrier), +RV culture @ 22 wks 11/11/2013 04/16/2014 Hypertension in , antepartum 09/19/2013 01/08/2014 DVT prophylaxis 12/25/2012 09/04/2013 Overview: IPCs DISPOSITION AND FOLLOW-UP 12/25/20122013 Overview: Full code Retinal detachment 10/26/2012 12/25/2012 documented as of this encounter (statuses as of 03/01/2022) [facility] of Past illness Narrative* Problem Noted [...] 02/25/2014 morning - On fentanyl gtt per AGRONOMIST Plan: - AGRONOMIST team to round on patient and manage [...] arise --- Follows with Dr. Garcia at [facility] Plan: - Continuous monitoring - F/u AGRONOMIST recs GBS (group B Streptococcus carrier), +RV culture @ 22 wks 11/11/2013 04/16/2014 Hypertension in , antepartum 09/19/2013 01/08/2014 DVT prophylaxis 12/25/2012 09/04/2013 Overview: IPCs DISPOSITION AND FOLLOW-UP 12/25/20122013 Overview: Full code Retinal detachment 10/26/2012 12/25/2012 documented as of this encounter (statuses as of 03/07/2022) [facility] of Past illness Narrative* Problem Noted [...] 02/25/2014 morning - On fentanyl gtt per AGRONOMIST Plan: - AGRONOMIST team to round on patient and manage [...] arise --- Follows with Dr. Garcia at [facility] Plan: - Continuous monitoring - F/u AGRONOMIST recs GBS (group B Streptococcus carrier), +RV culture @ 22 wks 11/11/2013 04/16/2014 Hypertension in , antepartum 09/19/2013 01/08/2014 DVT prophylaxis 12/25/2012 09/04/2013 Overview: IPCs DISPOSITION AND FOLLOW-UP 12/25/20122013 Overview: Full code Retinal detachment 10/26/2012 12/25/2012 documented as of this encounter (statuses as of 03/10/2022) [facility] of Past illness Narrative* Problem Noted [...] 02/25/2014 morning - On fentanyl gtt per AGRONOMIST Plan: - AGRONOMIST team to round on patient and manage [...] arise --- Follows with Dr. Garcia at [facility] Plan: - Continuous monitoring - F/u AGRONOMIST recs GBS (group B Streptococcus carrier), +RV culture @ 22 wks 11/11/2013 04/16/2014 Hypertension in , antepartum 09/19/2013 01/08/2014 DVT prophylaxis 12/25/2012 09/04/2013 Overview: IPCs DISPOSITION AND FOLLOW-UP 12/25/20122013 Overview: Full code Retinal detachment 10/26/2012 12/25/2012 documented as of this encounter (statuses as of 03/11/2022) [facility] of Past illness Narrative* Problem Noted [...] 02/25/2014 morning - On fentanyl gtt per AGRONOMIST Plan: - AGRONOMIST team to round on patient and manage [...] arise --- Follows with Dr. Garcia at [facility] Plan: - Continuous monitoring - F/u AGRONOMIST recs GBS (group B Streptococcus carrier), +RV culture @ 22 wks 11/11/2013 04/16/2014 Hypertension in , antepartum 09/19/2013 01/08/2014 DVT prophylaxis 12/25/2012 09/04/2013 Overview: IPCs DISPOSITION AND FOLLOW-UP 12/25/20122013 Overview: Full code Retinal detachment 10/26/2012 12/25/2012 documented as of this encounter (statuses as of 04/18/2022) [facility] of Past illness Narrative* Problem Noted [...] 02/25/2014 morning - On fentanyl gtt per AGRONOMIST Plan: - AGRONOMIST team to round on patient and manage [...] arise --- Follows with Dr. Garcia at [facility] Plan: - Continuous monitoring - F/u AGRONOMIST recs GBS (group B Streptococcus carrier), +RV culture @ 22 wks 11/11/2013 04/16/2014 Hypertension in , antepartum 09/19/2013 01/08/2014 DVT prophylaxis 12/25/2012 09/04/2013 Overview: IPCs DISPOSITION AND FOLLOW-UP 12/25/20122013 Overview: Full code Retinal detachment 10/26/2012 12/25/2012 documented as of this encounter (statuses as of 05/03/2022) [facility] of Past illness Narrative* Problem Noted [...] 02/25/2014 morning - On fentanyl gtt per AGRONOMIST Plan: - AGRONOMIST team to round on patient and manage [...] arise --- Follows with Dr. Garcia at [facility] Plan: - Continuous monitoring - F/u AGRONOMIST recs GBS (group B Streptococcus carrier), +RV culture @ 22 wks 11/11/2013 04/16/2014 Hypertension in , antepartum 09/19/2013 01/08/2014 DVT prophylaxis 12/25/2012 09/04/2013 Overview: IPCs DISPOSITION AND FOLLOW-UP 12/25/20122013 Overview: Full code Retinal detachment 10/26/2012 12/25/2012 documented as of this encounter (statuses as of 05/03/2022) [facility] of Past illness Narrative* Problem Noted [...] 02/25/2014 morning - On fentanyl gtt per AGRONOMIST Plan: - AGRONOMIST team to round on patient and manage [...] arise --- Follows with Dr. Garcia at [facility] Plan: - Continuous monitoring - F/u AGRONOMIST recs GBS (group B Streptococcus carrier), +RV culture @ 22 wks 11/11/2013 04/16/2014 Hypertension in , antepartum 09/19/2013 01/08/2014 DVT prophylaxis 12/25/2012 09/04/2013 Overview: IPCs DISPOSITION AND FOLLOW-UP 12/25/20122013 Overview: Full code Retinal detachment 10/26/2012 12/25/2012 documented as of this encounter (statuses as of 05/04/2022) [facility] of [facility] illness Narrative* Problem Noted [...] 02/25/2014 morning - On fentanyl gtt per AGRONOMIST Plan: - AGRONOMIST team to round on patient and manage [...] arise --- Follows with Dr. Garcia at [facility] Plan: - Continuous monitoring - F/u AGRONOMIST recs GBS (group B Streptococcus carrier), +RV culture @ 22 wks 11/11/2013 04/16/2014 Hypertension in , antepartum 09/19/2013 01/08/2014 DVT prophylaxis 12/25/2012 09/04/2013 Overview: IPCs DISPOSITION AND FOLLOW-UP 12/25/20122013 Overview: Full code Retinal detachment 10/26/2012 12/25/2012 documented as of this encounter (statuses as of 05/10/2022) [facility] of Past illness Narrative* Problem Noted [...] 02/25/2014 morning - On fentanyl gtt per AGRONOMIST Plan: - AGRONOMIST team to round on patient and manage [...] arise --- Follows with Dr. Garcia at [facility] Plan: - Continuous monitoring - F/u AGRONOMIST recs GBS (group B Streptococcus carrier), +RV culture @ 22 wks 11/11/2013 04/16/2014 Hypertension in , antepartum 09/19/2013 01/08/2014 DVT prophylaxis 12/25/2012 09/04/2013 Overview: IPCs DISPOSITION AND FOLLOW-UP 12/25/20122013 Overview: Full code Retinal detachment 10/26/2012 12/25/2012 documented as of this encounter (statuses as of 05/11/2022) [facility] of Past illness Narrative* Problem Noted [...] 02/25/2014 morning - On fentanyl gtt per AGRONOMIST Plan: - AGRONOMIST team to round on patient and manage [...] arise --- Follows with Dr. Garcia at [facility] Plan: - Continuous monitoring - F/u AGRONOMIST recs GBS (group B Streptococcus carrier), +RV culture @ 22 wks 11/11/2013 04/16/2014 Hypertension in , antepartum 09/19/2013 01/08/2014 DVT prophylaxis 12/25/2012 09/04/2013 Overview: IPCs DISPOSITION AND FOLLOW-UP 12/25/20122013 Overview: Full code Retinal detachment 10/26/2012 12/25/2012 documented as of this encounter (statuses as of 05/12/2022) [facility] of Past illness Narrative* Problem Noted [...] 02/25/2014 morning - On fentanyl gtt per AGRONOMIST Plan: - AGRONOMIST team to round on patient and manage [...] arise --- Follows with Dr. Garcia at [facility] Plan: - Continuous monitoring - F/u AGRONOMIST recs GBS (group B Streptococcus carrier), +RV culture @ 22 wks 11/11/2013 04/16/2014 Hypertension in , antepartum 09/19/2013 01/08/2014 DVT prophylaxis 12/25/2012 09/04/2013 Overview: IPCs DISPOSITION AND FOLLOW-UP 12/25/20122013 Overview: Full code Retinal detachment 10/26/2012 12/25/2012 documented as of this encounter (statuses as of 05/13/2022) [facility] Narrative* Problem Noted [...] 02/25/2014 morning - On fentanyl gtt per AGRONOMIST Plan: - AGRONOMIST team to round on patient and manage [...] arise --- Follows with Dr. Garcia at [facility] Plan: - Continuous monitoring - F/u AGRONOMIST recs GBS (group B Streptococcus carrier), +RV culture @ 22 wks 11/11/2013 04/16/2014 Hypertension in , antepartum 09/19/2013 01/08/2014 DVT prophylaxis 12/25/2012 09/04/2013 Overview: IPCs DISPOSITION AND FOLLOW-UP 12/25/20122013 Overview: Full code Retinal detachment 10/26/2012 12/25/2012 documented as of this encounter (statuses as of 05/30/2022) [facility] of [facility] illness Narrative* Problem Noted [...] 02/25/2014 morning - On fentanyl gtt per AGRONOMIST Plan: - AGRONOMIST team to round on patient and manage [...] arise --- Follows with Dr. Garcia at [facility] Plan: - Continuous monitoring - F/u AGRONOMIST recs GBS (group B Streptococcus carrier), +RV culture @ 22 wks 11/11/2013 04/16/2014 Hypertension in , antepartum 09/19/2013 01/08/2014 DVT prophylaxis 12/25/2012 09/04/2013 Overview: IPCs DISPOSITION AND FOLLOW-UP 12/25/20122013 Overview: Full code Retinal detachment 10/26/2012 12/25/2012 documented as of this encounter (statuses as of 06/07/2022) [facility] of [facility] Narrative* Problem Noted [...] 02/25/2014 morning - On fentanyl gtt per AGRONOMIST Plan: - AGRONOMIST team to round on patient and manage [...] arise --- Follows with Dr. Garcia at [facility] Plan: - Continuous monitoring - F/u AGRONOMIST recs GBS (group B Streptococcus carrier), +RV culture @ 22 wks 11/11/2013 04/16/2014 Hypertension in , antepartum 09/19/2013 01/08/2014 DVT prophylaxis 12/25/2012 09/04/2013 Overview: IPCs DISPOSITION AND FOLLOW-UP 12/25/20122013 Overview: Full code Retinal detachment 10/26/2012 12/25/2012 documented as of this encounter (statuses as of 06/08/2022) [facility] of Past illness Narrative* Problem Noted [...] 02/25/2014 morning - On fentanyl gtt per AGRONOMIST Plan: - AGRONOMIST team to round on patient and manage [...] arise --- Follows with Dr. Garcia at [facility] Plan: - Continuous monitoring - F/u AGRONOMIST recs GBS (group B Streptococcus carrier), +RV culture @ 22 wks 11/11/2013 04/16/2014 Hypertension in , antepartum 09/19/2013 01/08/2014 DVT prophylaxis 12/25/2012 09/04/2013 Overview: IPCs DISPOSITION AND FOLLOW-UP 12/25/20122013 Overview: Full code Retinal detachment 10/26/2012 12/25/2012 documented as of this encounter (statuses as of 06/16/2022) [facility] of Past illness Narrative* Problem Noted [...] 02/25/2014 morning - On fentanyl gtt per AGRONOMIST Plan: - AGRONOMIST team to round on patient and manage [...] arise --- Follows with Dr. Garcia at [facility] Plan: - Continuous monitoring - F/u AGRONOMIST recs GBS (group B Streptococcus carrier), +RV culture @ 22 wks 11/11/2013 04/16/2014 Hypertension in , antepartum 09/19/2013 01/08/2014 DVT prophylaxis 12/25/2012 09/04/2013 Overview: IPCs DISPOSITION AND FOLLOW-UP 12/25/20122013 Overview: Full code Retinal detachment 10/26/2012 12/25/2012 documented as of this encounter (statuses as of 07/12/2022) [facility] History of Past illness Narrative* Problem Noted [...] 02/25/2014 morning - On fentanyl gtt per AGRONOMIST Plan: - AGRONOMIST team to round on patient and manage [...] arise --- Follows with Dr. Garcia at [facility] Plan: - Continuous monitoring - F/u AGRONOMIST recs GBS (group B Streptococcus carrier), +RV culture @ 22 wks 11/11/2013 04/16/2014 Hypertension in , antepartum 09/19/2013 01/08/2014 DVT prophylaxis 12/25/2012 09/04/2013 Overview: IPCs DISPOSITION AND FOLLOW-UP 12/25/20122013 Overview: Full code Retinal detachment 10/26/2012 12/25/2012 documented as of this encounter (statuses as of 07/25/2022) [facility] History of Past illness Narrative* Problem Noted [...] 02/25/2014 morning - On fentanyl gtt per AGRONOMIST Plan: - AGRONOMIST team to round on patient and manage [...] arise --- Follows with Dr. Garcia at [facility] Plan: - Continuous monitoring - F/u AGRONOMIST recs GBS (group B Streptococcus carrier), +RV culture @ 22 wks 11/11/2013 04/16/2014 Hypertension in , antepartum 09/19/2013 01/08/2014 DVT prophylaxis 12/25/2012 09/04/2013 Overview: IPCs DISPOSITION AND FOLLOW-UP 12/25/20122013 Overview: Full code Retinal detachment 10/26/2012 12/25/2012 documented as of this encounter (statuses as of 08/05/2022) [facility] History of Past illness Narrative* Problem Noted [...] 02/25/2014 morning - On fentanyl gtt per AGRONOMIST Plan: - AGRONOMIST team to round on patient and manage [...] arise --- Follows with Dr. Garcia at [facility] Plan: - Continuous monitoring - F/u AGRONOMIST recs GBS (group B Streptococcus carrier), +RV culture @ 22 wks 11/11/2013 04/16/2014 Hypertension in , antepartum 09/19/2013 01/08/2014 DVT prophylaxis 12/25/2012 09/04/2013 Overview: IPCs DISPOSITION AND FOLLOW-UP 12/25/20122013 Overview: Full code Retinal detachment 10/26/2012 12/25/2012 documented as of this encounter (statuses as of 08/16/2022) [facility] History of Past illness Narrative* Problem Noted [...] 02/25/2014 morning - On fentanyl gtt per AGRONOMIST Plan: - AGRONOMIST team to round on patient and manage [...] arise --- Follows with Dr. Garcia at [facility] Plan: - Continuous monitoring - F/u AGRONOMIST recs GBS (group B Streptococcus carrier), +RV culture @ 22 wks 11/11/2013 04/16/2014 Hypertension in , antepartum 09/19/2013 01/08/2014 DVT prophylaxis 12/25/2012 09/04/2013 Overview: IPCs DISPOSITION AND FOLLOW-UP 12/25/20122013 Overview: Full code Retinal detachment 10/26/2012 12/25/2012 documented as of this encounter (statuses as of 09/02/2022) [facility] History of Past illness Narrative* Problem Noted [...] 02/25/2014 morning - On fentanyl gtt per AGRONOMIST Plan: - AGRONOMIST team to round on patient and manage [...] arise --- Follows with Dr. Garcia at [facility] Plan: - Continuous monitoring - F/u AGRONOMIST recs GBS (group B Streptococcus carrier), +RV culture @ 22 wks 11/11/2013 04/16/2014 Hypertension in , antepartum 09/19/2013 01/08/2014 DVT prophylaxis 12/25/2012 09/04/2013 Overview: IPCs DISPOSITION AND FOLLOW-UP 12/25/20122013 Overview: Full code Retinal detachment 10/26/2012 12/25/2012 documented as of this encounter (statuses as of 09/07/2022) [facility] History of Past illness Narrative* Problem Noted [...] 02/25/2014 morning - On fentanyl gtt per AGRONOMIST Plan: - AGRONOMIST team to round on patient and manage [...] arise --- Follows with Dr. Garcia at [facility] Plan: - Continuous monitoring - F/u AGRONOMIST recs GBS (group B Streptococcus carrier), +RV culture @ 22 wks 11/11/2013 04/16/2014 Hypertension in , antepartum 09/19/2013 01/08/2014 DVT prophylaxis 12/25/2012 09/04/2013 Overview: IPCs DISPOSITION AND FOLLOW-UP 12/25/20122013 Overview: Full code Retinal detachment 10/26/2012 12/25/2012 documented as of this encounter (statuses as of 09/20/2022) [facility] History of Past illness Narrative* Problem Noted [...] 02/25/2014 morning - On fentanyl gtt per AGRONOMIST Plan: - AGRONOMIST team to round on patient and manage [...] arise --- Follows with Dr. Garcia at [facility] Plan: - Continuous monitoring - F/u AGRONOMIST recs GBS (group B Streptococcus carrier), +RV culture @ 22 wks 11/11/2013 04/16/2014 Hypertension in , antepartum 09/19/2013 01/08/2014 DVT prophylaxis 12/25/2012 09/04/2013 Overview: IPCs DISPOSITION AND FOLLOW-UP 12/25/20122013 Overview: Full code Retinal detachment 10/26/2012 12/25/2012 documented as of this encounter (statuses as of 10/22/2022) [facility] History of Past illness Narrative* Problem Noted [...] 02/25/2014 morning - On fentanyl gtt per AGRONOMIST Plan: - AGRONOMIST team to round on patient and manage [...] arise --- Follows with Dr. Garcia at [facility] Plan: - Continuous monitoring - F/u AGRONOMIST recs GBS (group B Streptococcus carrier), +RV culture @ 22 wks 11/11/2013 04/16/2014 Hypertension in , antepartum 09/19/2013 01/08/2014 DVT prophylaxis 12/25/2012 09/04/2013 Overview: IPCs DISPOSITION AND FOLLOW-UP 12/25/20122013 Overview: Full code Retinal detachment 10/26/2012 12/25/2012 documented as of this encounter (statuses as of 11/03/2022) [facility] History of Past illness Narrative* Problem Noted [...] 02/25/2014 morning - On fentanyl gtt per AGRONOMIST Plan: - AGRONOMIST team to round on patient and manage [...] arise --- Follows with Dr. Garcia at [facility] Plan: - Continuous monitoring - F/u AGRONOMIST recs GBS (group B Streptococcus carrier), +RV culture @ 22 wks 11/11/2013 04/16/2014 Hypertension in , antepartum 09/19/2013 01/08/2014 DVT prophylaxis 12/25/2012 09/04/2013 Overview: IPCs DISPOSITION AND FOLLOW-UP 12/25/20122013 Overview: Full code Retinal detachment 10/26/2012 12/25/2012 documented as of this encounter (statuses as of 11/07/2022) [facility] History of Past illness Narrative* Problem Noted [...] 02/25/2014 morning - On fentanyl gtt per AGRONOMIST Plan: - AGRONOMIST team to round on patient and manage care Diabetic ketoacidosis withou t coma associated with type 1 diabetes mellitus 01/08/2014 02/04/2023 Overview: Type 1 diabetes with poor control, frequent DKA episodes --- Throughout the day she takes insulin to keep sugars 80-150 - Presented to [facility] on 01/08/2014 with sub-sternal chest pain [...] arise --- Follows with Dr. Garcia at [facility] Plan: - Continuous monitoring - F/u AGRONOMIST recs GBS (group B Streptococcus carrier), +RV culture @ 22 wks 11/11/2013 04/16/2014 Hypertension in , antepartum 09/19/2013 01/08/2014 DVT prophylaxis 12/25/2012 09/04/2013 Overview: IPCs DISPOSITION AND FOLLOW-UP 12/25/20122013 Overview: Full code Retinal detachment 10/26/2012 12/25/2012 documented as of this encounter (statuses as of 02/08/2023) [facility] History of Past illness Narrative* Problem Noted [...] 02/25/2014 morning - On fentanyl gtt per AGRONOMIST Plan: - AGRONOMIST team to round on patient and manage care Diabetic ketoacidosis withou t coma associated with type 1 diabetes mellitus 01/08/2014 02/04/2023 Overview: Type 1 diabetes with poor control, frequent DKA episodes --- Throughout the day she takes insulin to keep sugars 80-150 - Presented to [facility] on 01/08/2014 with sub-sternal chest pain [...] arise --- Follows with Dr. Garcia at [facility] Plan: - Continuous monitoring - F/u AGRONOMIST recs GBS (group B Streptococcus carrier), +RV culture @ 22 wks 11/11/2013 04/16/2014 Hypertension in , antepartum 09/19/2013 01/08/2014 DVT prophylaxis 12/25/2012 09/04/2013 Overview: IPCs DISPOSITION AND FOLLOW-UP 12/25/20122013 Overview: Full code Retinal detachment 10/26/2012 12/25/2012 documented as of this encounter (statuses as of 02/15/2023) [facility] History of Past illness Narrative* Problem Noted [...] 02/25/2014 morning - On fentanyl gtt per AGRONOMIST Plan: - AGRONOMIST team to round on patient and manage care Diabetic ketoacidosis withou t coma associated with type 1 diabetes mellitus 01/08/2014 02/04/2023 Overview: Type 1 diabetes with poor control, frequent DKA episodes --- Throughout the day she takes insulin to keep sugars 80-150 - Presented to [facility] on 01/08/2014 with sub-sternal chest pain [...] arise --- Follows with Dr. Garcia at [facility] Plan: - Continuous monitoring - F/u AGRONOMIST recs GBS (group B Streptococcus c arrier), +RV culture @ 22 wks 11/11/2013 04/16/2014 Hypertension in , antepartum 09/19/2013 01/08/2014 DVT prophylaxis 12/25/2012 09/04/2013 Overview: IPCs DISPOSITION AND FOLLOW-UP 12/25/2012 Overview: Full code Retinal detachment 10/26/2012 3 documented as of this encounter (statuses as of 06/02/2023) [facility] History of Past illness Narrative* Problem Noted [...] 02/25/2014 morning - On fentanyl gtt per AGRONOMIST Plan: - AGRONOMIST team to round on patient and manage care Diabetic ketoacidosis withou t coma associated with type 1 diabetes mellitus 01/08/2014 02/04/2023 Overview: Type 1 diabetes with poor control, frequent DKA episodes --- Throughout the day she takes insulin to keep sugars 80-150 - Presented to [facility] on 01/08/2014 with sub-sternal chest pain [...] arise --- Follows with Dr. Garcia at [facility] Plan: - Continuous monitoring - F/u AGRONOMIST recs GBS (group B Streptococcus c arrier), +RV culture @ 22 wks 11/11/2013 04/16/2014 Hypertension in , antepartum 09/19/2013 01/08/2014 DVT prophylaxis 12/25/2012 09/04/2013 Overview: IPCs DISPOSITION AND FOLLOW-UP 12/25/2012 Overview: Full code Retinal detachment 10/26/2012 3 documented as of this encounter (statuses as of 08/16/2023) [facility] History of Past illness Narrative* Problem Noted [...] 02/25/2014 morning - On fentanyl gtt per AGRONOMIST Plan: - AGRONOMIST team to round on patient and manage care Diabetic ketoacidosis withou t coma associated with type 1 diabetes mellitus 01/08/2014 02/04/2023 Overview: Type 1 diabetes with poor control, frequent DKA episodes --- Throughout the day she takes insulin to keep sugars 80-150 - Presented to [facility] on 01/08/2014 with sub-sternal chest pain [...] arise --- Follows with Dr. Garcia at [facility] Plan: - Continuous monitoring - F/u AGRONOMIST recs GBS (group B Streptococcus c arrier), +RV culture @ 22 wks 11/11/2013 04/16/2014 Hypertension in , antepartum 09/19/2013 01/08/2014 DVT prophylaxis 12/25/2012 09/04/2013 Overview: IPCs DISPOSITION AND FOLLOW-UP 12/25/2012 Overview: Full code Retinal detachment 10/26/2012 3 documented as of this encounter (statuses as of 09/29/2023) [facility] History of Past illness Narrative* Problem Noted [...] 02/25/2014 morning - On fentanyl gtt per AGRONOMIST Plan: - AGRONOMIST team to round on patient and manage care Diabetic ketoacidosis withou t coma associated with type 1 diabetes mellitus 01/08/2014 02/04/2023 Overview: Type 1 diabetes with poor control, frequent DKA episodes --- Throughout the day she takes insulin to keep sugars 80-150 - Presented to [facility] on 01/08/2014 with sub-sternal chest pain [...] arise --- Follows with Dr. Garcia at [facility] Plan: - Continuous monitoring - F/u AGRONOMIST recs GBS (group B Streptococcus c arrier), +RV culture @ 22 wks 11/11/2013 04/16/2014 Hypertension in , antepartum 09/19/2013 01/08/2014 DVT prophylaxis 12/25/2012 09/04/2013 Overview: IPCs DISPOSITION AND FOLLOW-UP 12/25/2012 Overview: Full code Retinal detachment 10/26/2012 3 documented as of this encounter (statuses as of 09/29/2023) [facility] History of Past illness Narrative* Problem Noted [...] 02/25/2014 morning - On fentanyl gtt per AGRONOMIST Plan: - AGRONOMIST team to round on patient and manage care Diabetic ketoacidosis withou t coma associated with type 1 diabetes mellitus 01/08/2014 02/04/2023 Overview: Type 1 diabetes with poor control, frequent DKA episodes --- Throughout the day she takes insulin to keep sugars 80-150 - Presented to [facility] on 01/08/2014 with sub-sternal chest pain [...] arise --- Follows with Dr. Garcia at [facility] Plan: - Continuous monitoring - F/u AGRONOMIST recs GBS (group B Streptococcus c arrier), +RV culture @ 22 wks 11/11/2013 04/16/2014 Hypertension in , antepartum 09/19/2013 01/08/2014 DVT prophylaxis 12/25/2012 09/04/2013 Overview: IPCs DISPOSITION AND FOLLOW-UP 12/25/2012 Overview: Full code Retinal detachment 10/26/2012 3 documented as of this encounter (statuses as of 10/04/2023) [facility] History of Past illness Narrative* Problem Noted [...] 02/25/2014 morning - On fentanyl gtt per AGRONOMIST Plan: - AGRONOMIST team to round on patient and manage care Diabetic ketoacidosis withou t coma associated with type 1 diabetes mellitus 01/08/2014 02/04/2023 Overview: Type 1 diabetes with poor control, frequent DKA episodes --- Throughout the day she takes insulin to keep sugars 80-150 - Presented to [facility] on 01/08/2014 with sub-sternal chest pain [...] arise --- Follows with Dr. Garcia at [facility] Plan: - Continuous monitoring - F/u AGRONOMIST recs GBS (group B Streptococcus c gregorio), +RV culture @ 22 wks 11/11/2013 04/16/2014 Hypertension in , antepartum 09/19/2013 01/08/2014 DVT prophylaxis 12/25/2012 09/04/2013 Overview: IPCs DISPOSITION AND FOLLOW-UP 12/25/2012 Overview: Full code Retinal detachment 10/26/2012 3 documented as of this encounter (statuses as of 10/12/2023) [facility] History of Past illness Narrative* Problem Noted [...] 02/25/2014 morning - On fentanyl gtt per AGRONOMIST Plan: - AGRONOMIST team to round on patient and manage care Diabetic ketoacidosis withou t coma associated with type 1 diabetes mellitus 01/08/2014 02/04/2023 Overview: Type 1 diabetes with poor control, frequent DKA episodes --- Throughout the day she takes insulin to keep sugars 80-150 - Presented to [facility] on 01/08/2014 with sub-sternal chest pain [...] arise --- Follows with Dr. Garcia at [facility] Plan: - Continuous monitoring - F/u AGRONOMIST recs GBS (group B Streptococcus c arrhilary), +RV culture @ 22 wks 11/11/2013 04/16/2014 Hypertension in , antepartum 09/19/2013 01/08/2014 DVT prophylaxis 12/25/2012 09/04/2013 Overview: IPCs DISPOSITION AND FOLLOW-UP 12/25/2012 Overview: Full code Retinal detachment 10/26/2012 3 documented as of this encounter (statuses as of 10/19/2023) [facility] History of Past illness Narrative* Problem Noted [...] 02/25/2014 morning - On fentanyl gtt per AGRONOMIST Plan: - AGRONOMIST team to round on patient and manage care Diabetic ketoacidosis withou t coma associated with type 1 diabetes mellitus 01/08/2014 02/04/2023 Overview: Type 1 diabetes with poor control, frequent DKA episodes --- Throughout the day she takes insulin to keep sugars 80-150 - Presented to [facility] on 01/08/2014 with sub-sternal chest pain [...] arise --- Follows with Dr. Garcia at [facility] Plan: - Continuous monitoring - F/u AGRONOMIST recs GBS (group B Streptococcus c arrier), +RV culture @ 22 wks 11/11/2013 04/16/2014 Hypertension in , antepartum 09/19/2013 01/08/2014 DVT prophylaxis 12/25/2012 09/04/2013 Overview: IPCs DISPOSITION AND FOLLOW-UP 12/25/2012 Overview: Full code Retinal detachment 10/26/2012 3 documented as of this encounter (statuses as of 10/20/2023) [facility] History of Past illness Narrative* Problem Noted [...] 02/25/2014 morning - On fentanyl gtt per AGRONOMIST Plan: - AGRONOMIST team to round on patient and manage care Diabetic ketoacidosis withou t coma associated with type 1 diabetes mellitus 01/08/2014 02/04/2023 Overview: Type 1 diabetes with poor control, frequent DKA episodes --- Throughout the day she takes insulin to keep sugars 80-150 - Presented to [facility] on 01/08/2014 with sub-sternal chest pain [...] arise --- Follows with Dr. Garcia at [facility] Plan: - Continuous monitoring - F/u AGRONOMIST recs GBS (group B Streptococcus c arrier), +RV culture @ 22 wks 11/11/2013 04/16/2014 Hypertension in , antepartum 09/19/2013 01/08/2014 DVT prophylaxis 12/25/2012 09/04/2013 Overview: IPCs DISPOSITION AND FOLLOW-UP 12/25/2012 Overview: Full code Retinal detachment 10/26/2012 3 documented as of this encounter (statuses as of 10/27/2023) [facility] History of Past illness Narrative* Problem Noted [...] 02/25/2014 morning - On fentanyl gtt per AGRONOMIST Plan: - AGRONOMIST team to round on patient and manage care Diabetic ketoacidosis withou t coma associated with type 1 diabetes mellitus 01/08/2014 02/04/2023 Overview: Type 1 diabetes with poor control, frequent DKA episodes --- Throughout the day she takes insulin to keep sugars 80-150 - Presented to [facility] on 01/08/2014 with sub-sternal chest pain [...] arise --- Follows with Dr. Garcia at [facility] Plan: - Continuous monitoring - F/u AGRONOMIST recs GBS (group B Streptococcus c arrier), +RV culture @ 22 wks 11/11/2013 04/16/2014 Hypertension in , antepartum 09/19/2013 01/08/2014 DVT prophylaxis 12/25/2012 09/04/2013 Overview: IPCs DISPOSITION AND FOLLOW-UP 12/25/2012 Overview: Full code Retinal detachment 10/26/2012 3 documented as of this encounter (statuses as of 11/03/2023) [facility] History of Past illness Narrative* Problem Noted [...] 02/25/2014 morning - On fentanyl gtt per AGRONOMIST Plan: - AGRONOMIST team to round on patient and manage care Diabetic ketoacidosis withou t coma associated with type 1 diabetes mellitus 01/08/2014 02/04/2023 Overview: Type 1 diabetes with poor control, frequent DKA episodes --- Throughout the day she takes insulin to keep sugars 80-150 - Presented to [facility] on 01/08/2014 with sub-sternal chest pain [...] arise --- Follows with Dr. Garcia at [facility] Plan: - Continuous monitoring - F/u AGRONOMIST recs GBS (group B Streptococcus c arrier), +RV culture @ 22 wks 11/11/2013 04/16/2014 Hypertension in , antepartum 09/19/2013 01/08/2014 DVT prophylaxis 12/25/2012 09/04/2013 Overview: IPCs DISPOSITION AND FOLLOW-UP 12/25/2012 Overview: Full code Retinal detachment 10/26/2012 3 documented as of this encounter (statuses as of 11/10/2023) [facility] History of Past illness Narrative* Problem Noted [...] 02/25/2014 morning - On fentanyl gtt per AGRONOMIST Plan: - AGRONOMIST team to round on patient and manage care Diabetic ketoacidosis withou t coma associated with type 1 diabetes mellitus 01/08/2014 02/04/2023 Overview: Type 1 diabetes with poor control, frequent DKA episodes --- Throughout the day she takes insulin to keep sugars 80-150 - Presented to [facility] on 01/08/2014 with sub-sternal chest pain [...] arise --- Follows with Dr. Garcia at [facility] Plan: - Continuous monitoring - F/u AGRONOMIST recs GBS (group B Streptococcus c arrier), +RV culture @ 22 wks 11/11/2013 04/16/2014 Hypertension in , antepartum 09/19/2013 01/08/2014 DVT prophylaxis 12/25/2012 09/04/2013 Overview: IPCs DISPOSITION AND FOLLOW-UP 12/25/2012 Overview: Full code Retinal detachment 10/26/2012 3 documented as of this encounter (statuses as of 12/14/2023) [facility] History of Past illness Narrative* Problem Noted [...] 02/25/2014 morning - On fentanyl gtt per AGRONOMIST Plan: - AGRONOMIST team to round on patient and manage care Diabetic ketoacidosis withou t coma associated with type 1 diabetes mellitus 01/08/2014 02/04/2023 Overview: Type 1 diabetes with poor control, frequent DKA episodes --- Throughout the day she takes insulin to keep sugars 80-150 - Presented to [facility] on 01/08/2014 with sub-sternal chest pain [...] arise --- Follows with Dr. Garcia at [facility] Plan: - Continuous monitoring - F/u AGRONOMIST recs GBS (group B Streptococcus c arrier), +RV culture @ 22 wks 11/11/2013 04/16/2014 Hypertension in , antepartum 09/19/2013 01/08/2014 DVT prophylaxis 12/25/2012 09/04/2013 Overview: IPCs DISPOSITION AND FOLLOW-UP 12/25/2012 Overview: Full code Retinal detachment 10/26/2012 3 documented as of this encounter (statuses as of 12/15/2023) [facility] Cyn[facility]ison [facility] October 18, 2023 11:21am Note Date/Time October 18, 2023 11:21am [facility] Medical Records Department [address] [place] [address] Counseling Note - Pharmacy 10/18/23 1121 MR#: [id number] Acct: [id number] Name: KATHLEEN VILLA Rep #:[id number] : 1995 28 From: Cynthia Hutchison PCP: FUNMILAYO SMITH Status:ADM IN Y Location: ICU CVICU20 2-1 Pharmacy [place] Med Reconciliation Pharmacy Service has performed discharge medication reconciliation for this patient. The patient's discharge medication list was reviewed for discrepancies and discrepancies were resolved. Medications at Discharge Home Medications insulin lispro 100 unit/mL subcutaneous solution (Humalog U-100 Insulin) See Rx Instructions .Route .COMPLEX 04/27/23 pen needle, diabetic 29 gauge x 1/2 (Ultra-Thin II Insulin Pen [place]) #100 ea08/10/23 prochlorperazine maleate 10 mg tablet (Compazine) 10 mg PO TID PRN nausea and vomiting #20 tabs 09/25/23 10/18/23 1121 <Electronically signed by Cynthia Hutchison> Date _ Cynthia Hutchison Cosigner Signature (if applicable): Date CC: ~ Signed [facility] Work Phone: Discharge summary Author Ileana Lobo [facility] April 29, 2023 5:54pm Note Date/Time April 29, 2023 5:45pm [facility] Medical Records Department [address] [place] [address] Instructions for Home/Discharge Instructions 04/29/23 1744 MR#: [id number] Acct: [id number] Name: KATHLEEN VILLA Rep #:[id number] : [...] MD; No Primary Care Physician ~ Signed [facility] Work Phone: Discharge summary Author Alexandro Garces [facility] October 17, 2023 11:38am Note Date/Time October 17, 2023 11:24am [facility] Medical Records Department [address] [place] [address] Emergency Department Summary 10/17/23 MR#: [id number] Acct: [id number] Name: KATHLEEN VILLA Rep #:[id number] : [...] gauge x 1/2 (Ultra-Thin II Insulin Pen [place]) #100 ea08/10/23 [Rx Last Taken Unknown] ibuprofen [...] Medical decision making narrative: Patient placed on bricklayer. IV line initiated. Labwork obtained to evaluate [...] 88.4 H Lymph % (Auto) 7.8 L [place] % (Auto) 2.4 Eos % (Auto) 0.1 [...] Garces MD - Last Filed: 10/17/23 11:38> [facility] Narrative Medical decision making narrative: Patient placed on bricklayer. IV line initiated. Labwork obtained to evaluate [...] 88.4 H Lymph % (Auto) 7.8 L [place] % (Auto) 2.4 Eos % (Auto) 0.1 [...] minutes, Including time spent:, Discussing w/Patient &/or Family/Shuttleless Loom Weaver, Discussing w/Consultants, Arranging Admission or Transfer, Performing [...] your Primary Care Provider. Call [facility] ([phone]) or report to the closest Emergency Room. Call 911 if necessary. 10/17/23 1138 <Electronically signed by Alexandro Garces MD> Cosigner Signature (if applicable): 10/17/23 1131 <Electronically signed by Jacqueline Alvarez RN> CC: FUNMILAYO SMITH ~ Signed [facility] Work Phone: Discharge summary Author [facility] October 18, 2023 10:54am Note Date/Time October 18, 2023 10:54am [facility] Medical Records Department [address] [place] [address] Instructions for Home/Discharge Instructions 10/18/23 1054 MR#: [id number] Acct: [id number] Name: KATHLEEN VILLA Rep #:[id number] : [...] Instructions / Restrictions: follow up with your website designer and well treatment offsider SIRI. Discharge Orders/Prescriptions Prescriptions: Continued insulin lispro [...] pen needle, diabetic [Ultra-Thin II Ins Pen [place]] 29 gauge x 1/2 needle See Rx [...] Jefferson MD CC: FUNMILAYO SMITH ~ Signed [facility] Work Phone: Discharge summary Author [facility] October 18, 2023 11:09am Note Date/Time October 18, 2023 10:58am [facility] Medical Records Department [address] [place] [address] Discharge Summary 10/18/23 1054 MR#: [id number] Acct: [id number] Name: KATHLEEN VILLA Rep #:[id number] : [...] was 6.7. * follows up with an website designer in [facility] in [place]. * last A1C from 08/07/2023 was 7 [...] gauge x 1/2 (Ultra-Thin II Insulin Pen [place]) #100 ea08/10/23 prochlorperazine maleate 10 mg tablet [...] per patient, her last A1C with her website designer was 6.7. She had however had recurrent [...] to follow up with her PCP and website designer as well as well treatment offsider o/a of gastroparesis. Patient seen and examined [...] % (Auto) 59.5, Lymph % (Auto) 32.5, [place] % (Auto) 6.0, Eos % (Auto) 1.0, [...] Instructions / Restrictions: follow up with your website designer and well treatment offsider SIRI. Discharge Orders/Prescriptions Prescriptions: Continued insulin lispro [...] pen needle, diabetic [Ultra-Thin II Ins Pen [place]] 29 gauge x 1/2 needle See Rx [...] Self Care Charges/Coding Visit Charges Inpatient E&M: 52752 Disch Hosp >30min 10/18/23 1109 <Electronically signed by Vita Jefferson MD> Cosigner Signature (if applicable): CC: Dr. Vita Jefferson MD; FUNMILAYO SMITH~ Signed [facility] Work Phone: Evaluation note* Diagnosis Type 1 diabetes mellitus with other specified complication (HCC)- [facility] Diagnosis Obstruction of central line, initial encounter (HCC)- Primary [facility] Diagnosis Type 1 diabetes mellitus with other specified complication (HCC)- Primary [facility] Diagnosis Menstrual irregularity- Primary Irregular menstrual cycle Screening for STD (sexually transmitted disease) Screening examination for venereal disease Chronic nausea Nausea alone [facility] Diagnosis 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) [facility] Diagnosis Chronic idiopathic constipation Unspecified constipation [facility] Diagnosis Gonorrhea- Primary Gonococcal infection (acute) of lower genitourinary tract [facility] Diagnosis Gonorrhea- Primary Gonococcal infection (acute) of lower genitourinary tract [facility] Gonorrhea- Primary Gonococcal infection (acute) of lower genitourinary tract Screen for sexually transmitted diseases Screening examination for venereal disease [facility] Diagnosis Type 1 diabetes mellitus with hyperglycemia (HCC)- Primary Type I (juvenile type) diabetes mellitus without mention of complication, not stated as uncontrolled Insulin pump status Abnormal results of thyroid function studies Nonspecific abnormal results of thyroid function study [facility] Diagnosis Type 1 diabetes mellitus with hyperglycemia, with long-term current use of insulin (HCC)- Primary Insulin pump status [facility] Diagnosis Type 1 diabetes mellitus with other specified complication (HCC)- Primary [facility] Diagnosis Lower abdominal pain- Primary Abdominal pain, other specified site [facility] Diagnosis Viral conjunctivitis- Primary Unspecified diseases of conjunctiva due to viruses documented in this encounter [facility] note* Diagnosis Gastroparesis due to DM (HCC)- Primary Type II or unspecified type diabetes mellitus with neurological manifestations, not stated as uncontrolled Aortic root aneurysm (HCC) Aortic aneurysm of unspecified site without mention of rupture Primary hypertension Unspecified essential hypertension Chronic nausea Nausea alone 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 ([facility]) Marfan syndrome Marfan's syndrome PTSD (post-traumatic stress disorder) Posttraumatic stress disorder Generalized abdominal pain Abdominal pain, generalized documented in this encounter [facility] note* Diagnosis Gastroparesis due to DM (HCC)- Primary Type II or unspecified type diabetes mellitus with neurological manifestations, not stated as uncontrolled Generalized abdominal pain Abdominal pain, generalized documented in this encounter [facility] note* Diagnosis Left flank pain- Primary Abdominal pain, unspecified site documented in this encounter [facility] note* Diagnosis Left flank pain- Primary Abdominal pain, unspecified site Dysuria documented in this encounter [facility] note* Diagnosis Type 1 diabetes mellitus with hyperglycemia, with long-term current use of insulin ([facility])- Primary Insulin pump status Screening for diabetic retinopathy Screening for other eye conditions documented in this encounter [facility] note* Diagnosis Nausea & vomiting- Primary Nausea with vomiting Hyperglycemia Other abnormal glucose Ketonuria Acetonuria Nausea and vomiting, unspecified vomiting type Abdominal pain, unspecified abdominal location Chest pain, unspecified type Bradycardia Other specified cardiac dysrhythmias documented in this encounter [facility] noteNo assessment information availableWFostoria [facility] Work Phone: Evaluation note* Diagnosis Onset Date Resolution Status Intractable vomiting acute [facility] Work Phone: Evaluation note* Diagnosis Psoriasis vulgaris- Primary Other psoriasis [facility] Diagnosis Type 1 diabetes mellitus with hyperglycemia, with long-term current use of insulin ([facility])- Primary Insulin pump status documented in this encounter [facility] note* Diagnosis Onset Date Resolution Status Diabetic gastroparesis acute DKA (diabetic ketoacidoses) acute Enterocolitis acute Intractable nausea and vomiting acute Nausea & vomiting acute Type 1 diabetes acute [facility] Work Phone: Evaluation note* Diagnosis Onset Date Resolution Status DKA (diabetic ketoacidoses) resolved Intractable nausea and vomiting resolved Nausea & vomiting resolved [facility] Work Phone: Evaluation note* Diagnosis Onset Date Resolution Status DKA (diabetic ketoacidoses) resolved Intractable nausea and vomiting resolved Nausea & vomiting resolved Acute dehydration acute DKA (diabetic ketoacidosis) acute Nausea & vomiting acute Tachycardia acute [facility] Work Phone: Evaluation note* Diagnosis Psoriasis vulgaris- Primary Other psoriasis Multiple benign nevi [facility]* Diagnosis Onset Date Resolution Status DKA (diabetic ketoacidoses) resolved Intractable nausea and vomiting resolved Nausea & vomiting resolved Acute dehydration resolved DKA (diabetic ketoacidosis) resolved Nausea & vomiting resolved Tachycardia resolved [facility] Work Phone: Evaluation note* Diagnosis Type 1 diabetes mellitus with hyperglycemia, with long-term current use of insulin ([facility])- Primary Insulin pump status documented in this encounter [facility] note* Diagnosis Type 1 diabetes mellitus with hyperglycemia, with long-term current use of insulin ([facility]) Insulin pump status documented in this encounter [facility] note* Diagnosis Type 1 diabetes mellitus with hyperglycemia, with long-term current use of insulin ([facility])- Primary Insulin pump status documented in this encounter [facility] note* Diagnosis Type 1 diabetes mellitus with hyperglycemia, with long-term current use of insulin ([facility]) documented in this encounter [facility] note* Diagnosis Obstructive sleep apnea- Primary Obstructive sleep apnea (adult) (pediatric) Dyspnea Other dyspnea and respiratory abnormality Type 1 diabetes mellitus with hyperglycemia, with long-term current use of insulin ([facility]) Insulin pump status documented in this encounter [facility] note* Diagnosis Obstructive sleep apnea- Primary Obstructive sleep apnea (adult) (pediatric) Dyspnea Other dyspnea and respiratory abnormality Diabetes mellitus type 1, controlled, without complications (HCC)- Primary Type I (juvenile type) diabetes mellitus without mention of complication, not stated as uncontrolled documented in this encounter [facility] note* Diagnosis Obstructive sleep apnea- Primary [...] for venereal disease [facility] Diagnosis Obstructive sleep apnea- Primary Obstructive sleep apnea (adult) (pediatric) Dyspnea Other dyspnea and respiratory abnormality Type 1 diabetes mellitus with hyperglycemia, with long-term current use of insulin (HCC)- Primary Insulin pump status [facility]* Diagnosis Obstructive sleep apnea- Primary Obstructive sleep apnea (adult) (pediatric) Dyspnea Other dyspnea and respiratory abnormality Type 1 diabetes mellitus with hyperglycemia, with long-term current use of insulin (HCC) Insulin pump status [facility]* Diagnosis Psoriasis vulgaris- Primary Other psoriasis Folliculitis Other specified disease of hair and hair follicles Encounter for long-term current use of high risk medication Screening for viral disease Special screening examination for unspecified viral disease [facility]* Diagnosis Obstructive sleep apnea- Primary Obstructive sleep apnea (adult) (pediatric) Dyspnea Other dyspnea and respiratory abnormality Chronic idiopathic constipation- Primary Unspecified constipation Gastroparesis documented in this encounter [facility] note* Diagnosis Obstructive sleep apnea- Primary Obstructive sleep apnea (adult) (pediatric) Dyspnea Other dyspnea and respiratory abnormality Chronic idiopathic constipation- Primary Unspecified constipation Abdominal pain, suprapubic Abdominal pain, other specified site Chronic idiopathic constipation Unspecified constipation documented in this encounter [facility] note* Diagnosis Obstructive sleep apnea- Primary Obstructive sleep apnea (adult) (pediatric) Dyspnea Other dyspnea and respiratory abnormality Chronic idiopathic constipation Unspecified constipation documented in this encounter [facility] note* Diagnosis Psoriasis vulgaris- Primary Other [...] of other medications documented in this encounter [facility] course Narrative No data available for this section [facility] Discharge instructions No data available for this section [facility] Discharge instructions* Attachments The following attachments cannot be sent through Care Everywhere. * Gastroparesis (Uzbek) [facility] Additional Instructions Please follow-up with your diabetes doctor Please keep a close eye on your blood sugar and adjust your pump accordingly. Please try to drink plenty of fluids today.[facility] Work Phone: Hospital Discharge instructions Additional Instructions You have influenza B. You should start to feel better later in the week. You need to maintain hydration, keep a close eye on your sugars. You need to eat and drink, do not get behind and get dehydrated. Use ibuprofen and Tylenol. Use your albuterol inhaler.[facility] Work Phone: Progress note No data available for this section [facility] Reason for visit Narrative* Diagnostic Procedure Only (Routine) - Closed Specialty Diagnoses / Procedures Referred By Contac t Referred To Contact XR IMAGING Diagnoses Chronic idiopathic constipation Procedures XR ABDOMEN 1V SUPINE RADIOLOGIC EXAM ABDOMEN 1 VIEW Leticia Hylton DO [address] [place] [address] Phone: tel: fax: [place] [id number] Referral ID Status Reason Start Date Expiration Date V isits Requested Visits Authorized [id number] Closed Auto-Generate d Referral 11/11/2024 12/11/2025 1 1 [facility] Summary Purpose Family History No Family History Records FoundNo Family History Records FoundNo Family History Records FoundNo Family History Records FoundNo Family History Records FoundNo Family History Records FoundNo Family History Records FoundNo Family History Records FoundNo Family History Records FoundNo Family History Records Found Advance Directives No Advanced Directives Records FoundDocuments on File Type Date Recorded Patient Crusher Setter Expl anation Advance Directive(s) Advance Directive(s) 01/02/2020 3:16 PM Advance Directive(s) 01/20/2016 9:39 AM Advance Directive(s) 11/13/2015 8:50 AM Advance Directive(s) 02/27/2014 5:42 PM Advance Directive(s) 01/09/2014 8:55 PM Advance Directive(s) 12/25/2012 9:16 PM Documents on File Type Date Recorded Patient Crusher Setter Expl anation Advance Directive(s) 02/27/2014 5:42 PM Advance Directive(s) 01/09/2014 8:55 PM Advance Directive(s) 12/25/2012 9:16 PM Documents on File Type Date Recorded Patient Crusher Setter Expl anation Advance Directive(s) 02/27/2014 5:42 PM [...] Will No April 26 9:30pm Power of Case Consultant No April 26 2 023 9:30pm Advance Directive Response Recorded Date/ Time Living Will No April 27 9:26am Power of Case Consultant No April 27 2 023 9:26am Advance Directive Response Recorded Date/ Time Living Will No April 27 3 5:02pm Power of Case Consultant No April 27, 2 023 5:02pm Advance Directive Response Recorded Date/ Time Living Will No May 03 2 023 4:27am Power of Case Consultant No May 03, 2023 4:27am Latest Code [...] Will No June 25 9:47am Power of Case Consultant No June 25, 2023 9:47am Advance Directive Response Recorded Date/ Time Living Will No June 25 11:14pm Power of Case Consultant No June 25, 2023 11:14pm Advance Directive Response Recorded Date/ Time Living Will No August 06, 2 023 8:56am Power of Case Consultant No August 06, 2023 8:56am Advance Directive Response Recorded Date/ Time Living Will No August 06, 2 023 9:39pm Power of Case Consultant No August 06, 2023 9:39pm Advance Directive Response Recorded Date/ Time Living Will No August 22, 2 023 2:48am Power of Case Consultant No August 22, 2023 2:48am Advance Directive Response Recorded Date/ Time Living Will No September 24 5:58pm Power of Case Consultant No September 24, 2023 5:58pm Advance Directive Response Recorded Date/ Time Living Will No October 17, 2 024 10:02am Power of Case Consultant No October 17, 2023 10:02am Advance Directive Response Recorded Date/ Time Living Will No October 17, 2 024 12:47pm Power of Case Consultant No October 17, 2023 12:47pm Advance Directive Response Recorded Date/ Time Living Will No October 25, 2 024 4:43pm Power of Case Consultant No October 25, 2023 4:43pm Date Activated Date Inactivated Comments 02/01/2023 2:02 AM 02/04/2023 6:35 PM Question Answer Comments Full Code Order Discussed With: Patient Date Activated Date Inactivated Comments 11/23/2022 11:30 PM 11/26/2022 7:43 PM Question Answer Comments Full Code Order Discussed With: Patient Advance Directive Response Recorded Date/ Time Living Will No October 25, 2 024 5:43pm Power of Case Consultant No October 25, 2023 5:43pm Date Activated Date Inactivated Comments 02/01/2023 2:02 AM 02/04/2023 6:35 PM Question Answer Comments Full Code Order Discussed With: Patient Date Activated Date Inactivated Comments 11/23/2022 11:30 PM 11/26/2022 7:43 PM Question Answer Comments Full Code Order Discussed With: Patient Advance Directive Response Recorded Date/ Time Living Will No August 07, 023 1:35am Power of Case Consultant No August 07, 2023 1:35am Health Concerns [...] DSME/MNT MEDICAL NUTRITION ASSMT&IVNTJ INDIV EACH 15 MA MEDICAL NUTRITION ASSMT&IVNTJ INDIV EACH 15 MA MEDICAL NUTRITION ASSMT&IVNTJ INDIV EACH 15 MA MEDICAL NUTRITION ASSMT&IVNTJ INDIV EACH 15 MA Jessica Guerrero, ESTEFANIA.[facility] [address] [place] [address] Referral ID Status Reason Start Date Expiration Date Visits Requested Visits Authorized [id number] Authorized PCP Requested Referral 12/13/2023 12/12/2024 1 1 Specialty Diagnoses / Procedures Referred By Ajay t Referred To Contact Diagnoses Psoriasis vulgaris Leesa Huddleston PA-C [address] [facility] [address] [place] [address] Referral ID Status Reason Start Date Expiration Date V isits Requested Visits Authorized [id number] Authorized 04/14/2021 05/13/2024 1 1 Specialty Diagnoses / Procedures Referred By Ajay t Referred To Contact Ophthalmology Diagnoses Screening for diabetic retinopathy Procedures CONSULT TO OPHTHALMOLOGY OFFICE/OUTPATIENT NEW HIGH MDM 60-74 MINUTES Autumn Valadez, FAMILY PROGRAM SPECIALIST.SUPERVISOR AGRICULTURAL EDUCATION [address] [place] [address] Referral ID Status Reason Start Date Expiration Date Visits Requested Visits Authorized [id number] Authorized PCP Requested Referral 01/25/2023 01/25/2024 1 1 Specialty Diagnoses / Procedures Referred By Contac t Referred To Contact Gastroenterology Diagnoses Gastroparesis due to DM (HCC) Generalized abdominal pain Procedures CONSULT TO GASTROENTEROLOGY OFFICE/OUTPATIENT [facility] 60-74 MINUTES Vivi Smith MD [address] [place] [address] [place] [address] [facility] [address] [place] [address] Referral ID Status Reason Start Date Expiration Date Visits Requested Visits Authorized [id number] Authorized PCP Requested Referral 12/09/2022 12/09/2023 1 1 Specialty Diagnoses / Procedures Referred By Contac t Referred To Contact Pain Management / PAIN MANAGEMENT Diagnoses Gastroparesis due to DM (HCC) Generalized abdominal pain Procedures CONSULT TO PAIN MGT OFFICE/OUTPATIENT [facility] 60-74 MINUTES Vivi Smith MD [address] [place] [address] Elisabet Guzmán DO [address] [facility] [place] [address] Referral ID Status Reason Start Date Expiration Date Visits Requested Visits Authorized [id number] Authorized PCP Requested Referral 12/09/2022 12/09/2023 1 1 Specialty Diagnoses / Procedures Referred By Contac t Referred To Contact Gynecology Diagnoses Menstrual irregularity Procedures CONSULT TO GYNECOLOGY OFFICE/OUTPATIENT [facility] 60-74 MINUTES Dashawn Cain, FAMILY PROGRAM SPECIALIST.SUPERVISOR AGRICULTURAL EDUCATION [address] [place] [address] Referral ID Status Reason Start Date Expiration Date Visits Requested Visits Authorized [id number] Authorized PCP Requested Referral Auto-Generate d Referral [...] section and content) DATE CREATED AUTHOR 02/21/2018 [facility] DATE CREATED AUTHOR AUTHOR'S ORGANIZ ATION 12/28/2021 [facility] DATE CREATED AUTHOR AUTHOR'S ORGANIZ ATION 02/12/2022 [facility] DATE CREATED AUTHOR AUTHOR'S ORGANIZ ATION 03/04/2023 [facility] DATE CREATED AUTHOR AUTHOR'S ORGANIZ ATION 04/20/2023 [facility] DATE CREATED AUTHOR AUTHOR'S ORGANIZ ATION 12/17/2023 [facility] DATE CREATED AUTHOR AUTHOR'S ORGANIZ ATION 11/13/2024 [facility] DATE CREATED AUTHOR AUTHOR'S ORGANIZ ATION 11/15/2024 [facility] DATE CREATED AUTHOR AUTHOR'S ORGANIZ ATION 01/28/2025 [facility] DATE CREATED AUTHOR AUTHOR'S ORGANIZ ATION 03/16/2025 [facility] Source Comments (unrecognize d section and content) In the event this informatio n is protected by the Federal Confidentiality of Alcohol and Drug Abuse Patient Records regulations: The Federal rules restrict any use of the information to criminally investigate or prosecute any alcohol or drug abuse patient.[facility] the event this information is protected by the Federal Confidentiality of Alcohol and Drug Abuse Patient Records regulations: The Federal rules restrict any use of the information to criminally investigate or prosecute any alcohol or drug abuse patient.[facility] the event this information is protected by the Federal Confidentiality of Alcohol and Drug Abuse Patient Records regulations: The Federal rules restrict any use of the information to criminally investigate or prosecute any alcohol or drug abuse patient.[facility] the event this information is protected by the Federal Confidentiality of Alcohol and Drug Abuse Patient Records regulations: The Federal rules restrict any use of the information to criminally investigate or prosecute any alcohol or drug abuse patient.[facility] the event this information is protected by the Federal Confidentiality of Alcohol and Drug Abuse Patient Records regulations: The Federal rules restrict any use of the information to criminally investigate or prosecute any alcohol or drug abuse patient.[facility] the event this information is protected by the Federal Confidentiality of Alcohol and Drug Abuse Patient Records regulations: The Federal rules restrict any use of the information to criminally investigate or prosecute any alcohol or drug abuse patient.[facility] the event this information is protected by the Federal Confidentiality of Alcohol and Drug Abuse Patient Records regulations: The Federal rules restrict any use of the information to criminally investigate or prosecute any alcohol or drug abuse patient.[facility] the event this information is protected by the Federal Confidentiality of Alcohol and Drug Abuse Patient Records regulations: The Federal rules restrict any use of the information to criminally investigate or prosecute any alcohol or drug abuse patient.[facility] the event this information is protected by the Federal Confidentiality of Alcohol and Drug Abuse Patient Records regulations: The Federal rules restrict any use of the information to criminally investigate or prosecute any alcohol or drug abuse patient.[facility] the event this information is protected by the Federal Confidentiality of Alcohol and Drug Abuse Patient Records regulations: The Federal rules restrict any use of the information to criminally investigate or prosecute any alcohol or drug abuse patient.[facility] the event this information is protected by the Federal Confidentiality of Alcohol and Drug Abuse Patient Records regulations: The Federal rules restrict any use of the information to criminally investigate or prosecute any alcohol or drug abuse patient.[facility] the event this information is protected by the Federal Confidentiality of Alcohol and Drug Abuse Patient Records regulations: The Federal rules restrict any use of the information to criminally investigate or prosecute any alcohol or drug abuse patient.[facility] the event this information is protected by the Federal Confidentiality of Alcohol and Drug Abuse Patient Records regulations: The Federal rules restrict any use of the information to criminally investigate or prosecute any alcohol or drug abuse patient.[facility] TroyIn the event this information is protected by the Federal Confidentiality of Alcohol and Drug Abuse Patient Records regulations: The Federal rules restrict any use of the information to criminally investigate or prosecute any alcohol or drug abuse patient.[facility] TroyIn the event this information is protected by the Federal Confidentiality of Alcohol and Drug Abuse Patient Records regulations: The Federal rules restrict any use of the information to criminally investigate or prosecute any alcohol or drug abuse patient.[facility] TroyIn the event this information is protected by the Federal Confidentiality of Alcohol and Drug Abuse Patient Records regulations: The Federal rules restrict any use of the information to criminally investigate or prosecute any alcohol or drug abuse patient.[facility] TroyIn the event this information is protected by the Federal Confidentiality of Alcohol and Drug Abuse Patient Records regulations: The Federal rules restrict any use of the information to criminally investigate or prosecute any alcohol or drug abuse patient.[facility] TroyIn the event this information is protected by the Federal Confidentiality of Alcohol and Drug Abuse Patient Records regulations: The Federal rules restrict any use of the information to criminally investigate or prosecute any alcohol or drug abuse patient.[facility] TroyIn the event this information is protected by the Federal Confidentiality of Alcohol and Drug Abuse Patient Records regulations: The Federal rules restrict any use of the information to criminally investigate or prosecute any alcohol or drug abuse patient.[facility] TroyIn the event this information is protected by the Federal Confidentiality of Alcohol and Drug Abuse Patient Records regulations: The Federal rules restrict any use of the information to criminally investigate or prosecute any alcohol or drug abuse patient.[facility] TroyIn the event this information is protected by the Federal Confidentiality of Alcohol and Drug Abuse Patient Records regulations: The Federal rules restrict any use of the information to criminally investigate or prosecute any alcohol or drug abuse patient.[facility] TroyIn the event this information is protected by the Federal Confidentiality of Alcohol and Drug Abuse Patient Records regulations: The Federal rules restrict any use of the information to criminally investigate or prosecute any alcohol or drug abuse patient.[facility] TroyIn the event this information is protected by the Federal Confidentiality of Alcohol and Drug Abuse Patient Records regulations: The Federal rules restrict any use of the information to criminally investigate or prosecute any alcohol or drug abuse patient.[facility] TroyIn the event this information is protected by the Federal Confidentiality of Alcohol and Drug Abuse Patient Records regulations: The Federal rules restrict any use of the information to criminally investigate or prosecute any alcohol or drug abuse patient.[facility] TroyIn the event this information is protected by the Federal Confidentiality of Alcohol and Drug Abuse Patient Records regulations: The Federal rules restrict any use of the information to criminally investigate or prosecute any alcohol or drug abuse patient.[facility] TroyIn the event this information is protected by the Federal Confidentiality of Alcohol and Drug Abuse Patient Records regulations: The Federal rules restrict any use of the information to criminally investigate or prosecute any alcohol or drug abuse patient.[facility] TroyIn the event this information is protected by the Federal Confidentiality of Alcohol and Drug Abuse Patient Records regulations: The Federal rules restrict any use of the information to criminally investigate or prosecute any alcohol or drug abuse patient.[facility] TroyIn the event this information is protected by the Federal Confidentiality of Alcohol and Drug Abuse Patient Records regulations: The Federal rules restrict any use of the information to criminally investigate or prosecute any alcohol or drug abuse patient.[facility] TroyIn the event this information is protected by the Federal Confidentiality of Alcohol and Drug Abuse Patient Records regulations: The Federal rules restrict any use of the information to criminally investigate or prosecute any alcohol or drug abuse patient.[facility] TroyIn the event this information is protected by the Federal Confidentiality of Alcohol and Drug Abuse Patient Records regulations: The Federal rules restrict any use of the information to criminally investigate or prosecute any alcohol or drug abuse patient.[facility] TroyIn the event this information is protected by the Federal Confidentiality of Alcohol and Drug Abuse Patient Records regulations: The Federal rules restrict any use of the information to criminally investigate or prosecute any alcohol or drug abuse patient.[facility] TroyIn the event this information is protected by the Federal Confidentiality of Alcohol and Drug Abuse Patient Records regulations: The Federal rules restrict any use of the information to criminally investigate or prosecute any alcohol or drug abuse patient.[facility] TroyIn the event this information is protected by the Federal Confidentiality of Alcohol and Drug Abuse Patient Records regulations: The Federal rules restrict any use of the information to criminally investigate or prosecute any alcohol or drug abuse patient.[facility] TroyIn the event this information is protected by the Federal Confidentiality of Alcohol and Drug Abuse Patient Records regulations: The Federal rules restrict any use of the information to criminally investigate or prosecute any alcohol or drug abuse patient.[facility] TroyIn the event this information is protected by the Federal Confidentiality of Alcohol and Drug Abuse Patient Records regulations: The Federal rules restrict any use of the information to criminally investigate or prosecute any alcohol or drug abuse patient.[facility] TroyIn the event this information is protected by the Federal Confidentiality of Alcohol and Drug Abuse Patient Records regulations: The Federal rules restrict any use of the information to criminally investigate or prosecute any alcohol or drug abuse patient.[facility] TroyIn the event this information is protected by the Federal Confidentiality of Alcohol and Drug Abuse Patient Records regulations: The Federal rules restrict any use of the information to criminally investigate or prosecute any alcohol or drug abuse patient.[facility] TroyIn the event this information is protected by the Federal Confidentiality of Alcohol and Drug Abuse Patient Records regulations: The Federal rules restrict any use of the information to criminally investigate or prosecute any alcohol or drug abuse patient.[facility] TroyIn the event this information is protected by the Federal Confidentiality of Alcohol and Drug Abuse Patient Records regulations: The Federal rules restrict any use of the information to criminally investigate or prosecute any alcohol or drug abuse patient.[facility] TroyIn the event this information is protected by the Federal Confidentiality of Alcohol and Drug Abuse Patient Records regulations: The Federal rules restrict any use of the information to criminally investigate or prosecute any alcohol or drug abuse patient.[facility] TroyIn the event this information is protected by the Federal Confidentiality of Alcohol and Drug Abuse Patient Records regulations: The Federal rules restrict any use of the information to criminally investigate or prosecute any alcohol or drug abuse patient.[facility] TroyIn the event this information is protected by the Federal Confidentiality of Alcohol and Drug Abuse Patient Records regulations: The Federal rules restrict any use of the information to criminally investigate or prosecute any alcohol or drug abuse patient.[facility] TroyIn the event this information is protected by the Federal Confidentiality of Alcohol and Drug Abuse Patient Records regulations: The Federal rules restrict any use of the information to criminally investigate or prosecute any alcohol or drug abuse patient.[facility] TroyIn the event this information is protected by the Federal Confidentiality of Alcohol and Drug Abuse Patient Records regulations: The Federal rules restrict any use of the information to criminally investigate or prosecute any alcohol or drug abuse patient.[facility] TroyIn the event this information is protected by the Federal Confidentiality of Alcohol and Drug Abuse Patient Records regulations: The Federal rules restrict any use of the information to criminally investigate or prosecute any alcohol or drug abuse patient.[facility] TroyIn the event this information is protected by the Federal Confidentiality of Alcohol and Drug Abuse Patient Records regulations: The Federal rules restrict any use of the information to criminally investigate or prosecute any alcohol or drug abuse patient.[facility] TroyIn the event this information is protected by the Federal Confidentiality of Alcohol and Drug Abuse Patient Records regulations: The Federal rules restrict any use of the information to criminally investigate or prosecute any alcohol or drug abuse patient.[facility] TroyIn the event this information is protected by the Federal Confidentiality of Alcohol and Drug Abuse Patient Records regulations: The Federal rules restrict any use of the information to criminally investigate or prosecute any alcohol or drug abuse patient.[facility] TroyIn the event this information is protected by the Federal Confidentiality of Alcohol and Drug Abuse Patient Records regulations: The Federal rules restrict any use of the information to criminally investigate or prosecute any alcohol or drug abuse patient.[facility] TroyIn the event this information is protected by the Federal Confidentiality of Alcohol and Drug Abuse Patient Records regulations: The Federal rules restrict any use of the information to criminally investigate or prosecute any alcohol or drug abuse patient.[facility] TroyIn the event this information is protected by the Federal Confidentiality of Alcohol and Drug Abuse Patient Records regulations: The Federal rules restrict any use of the information to criminally investigate or prosecute any alcohol or drug abuse patient.[facility] TroyIn the event this information is protected by the Federal Confidentiality of Alcohol and Drug Abuse Patient Records regulations: The Federal rules restrict any use of the information to criminally investigate or prosecute any alcohol or drug abuse patient.[facility] TroyIn the event this information is protected by the Federal Confidentiality of Alcohol and Drug Abuse Patient Records regulations: The Federal rules restrict any use of the information to criminally investigate or prosecute any alcohol or drug abuse patient.[facility] TroyIn the event this information is protected by the Federal Confidentiality of Alcohol and Drug Abuse Patient Records regulations: The Federal rules restrict any use of the information to criminally investigate or prosecute any alcohol or drug abuse patient.[facility] TroyIn the event this information is protected by the Federal Confidentiality of Alcohol and Drug Abuse Patient Records regulations: The Federal rules restrict any use of the information to criminally investigate or prosecute any alcohol or drug abuse patient.[facility] TroyIn the event this information is protected by the Federal Confidentiality of Alcohol and Drug Abuse Patient Records regulations: The Federal rules restrict any use of the information to criminally investigate or prosecute any alcohol or drug abuse patient.[facility] TroyIn the event this information is protected by the Federal Confidentiality of Alcohol and Drug Abuse Patient Records regulations: The Federal rules restrict any use of the information to criminally investigate or prosecute any alcohol or drug abuse patient.[facility] TroyIn the event this information is protected by the Federal Confidentiality of Alcohol and Drug Abuse Patient Records regulations: The Federal rules restrict any use of the information to criminally investigate or prosecute any alcohol or drug abuse patient.[facility] TroyIn the event this information is protected by the Federal Confidentiality of Alcohol and Drug Abuse Patient Records regulations: The Federal rules restrict any use of the information to criminally investigate or prosecute any alcohol or drug abuse patient.[facility] TroyIn the event this information is protected by the Federal Confidentiality of Alcohol and Drug Abuse Patient Records regulations: The Federal rules restrict any use of the information to criminally investigate or prosecute any alcohol or drug abuse patient.[facility] TroyIn the event this information is protected by the Federal Confidentiality of Alcohol and Drug Abuse Patient Records regulations: The Federal rules restrict any use of the information to criminally investigate or prosecute any alcohol or drug abuse patient.[facility] TroyIn the event this information is protected by the Federal Confidentiality of Alcohol and Drug Abuse Patient Records regulations: The Federal rules restrict any use of the information to criminally investigate or prosecute any alcohol or drug abuse patient.[facility] TroyIn the event this information is protected by the Federal Confidentiality of Alcohol and Drug Abuse Patient Records regulations: The Federal rules restrict any use of the information to criminally investigate or prosecute any alcohol or drug abuse patient.[facility] TroyIn the event this information is protected by the Federal Confidentiality of Alcohol and Drug Abuse Patient Records regulations: The Federal rules restrict any use of the information to criminally investigate or prosecute any alcohol or drug abuse patient.[facility] TroyIn the event this information is protected by the Federal Confidentiality of Alcohol and Drug Abuse Patient Records regulations: The Federal rules restrict any use of the information to criminally investigate or prosecute any alcohol or drug abuse patient.[facility] TroyIn the event this information is protected by the Federal Confidentiality of Alcohol and Drug Abuse Patient Records regulations: The Federal rules restrict any use of the information to criminally investigate or prosecute any alcohol or drug abuse patient.[facility] TroyIn the event this information is protected by the Federal Confidentiality of Alcohol and Drug Abuse Patient Records regulations: The Federal rules restrict any use of the information to criminally investigate or prosecute any alcohol or drug abuse patient.[facility] TroyIn the event this information is protected by the Federal Confidentiality of Alcohol and Drug Abuse Patient Records regulations: The Federal rules restrict any use of the information to criminally investigate or prosecute any alcohol or drug abuse patient.[facility] TroyIn the event this information is protected by the Federal Confidentiality of Alcohol and Drug Abuse Patient Records regulations: The Federal rules restrict any use of the information to criminally investigate or prosecute any alcohol or drug abuse patient.[facility] TroyIn the event this information is protected by the Federal Confidentiality of Alcohol and Drug Abuse Patient Records regulations: The Federal rules restrict any use of the information to criminally investigate or prosecute any alcohol or drug abuse patient.[facility] TroyIn the event this information is protected by the Federal Confidentiality of Alcohol and Drug Abuse Patient Records regulations: The Federal rules restrict any use of the information to criminally investigate or prosecute any alcohol or drug abuse patient.[facility] TroyIn the event this information is protected by the Federal Confidentiality of Alcohol and Drug Abuse Patient Records regulations: The Federal rules restrict any use of the information to criminally investigate or prosecute any alcohol or drug abuse patient.[facility] TroyIn the event this information is protected by the Federal Confidentiality of Alcohol and Drug Abuse Patient Records regulations: The Federal rules restrict any use of the information to criminally investigate or prosecute any alcohol or drug abuse patient.[facility] TroyIn the event this information is protected by the Federal Confidentiality of Alcohol and Drug Abuse Patient Records regulations: The Federal rules restrict any use of the information to criminally investigate or prosecute any alcohol or drug abuse patient.[facility] TroyIn the event this information is protected by the Federal Confidentiality of Alcohol and Drug Abuse Patient Records regulations: The Federal rules restrict any use of the information to criminally investigate or prosecute any alcohol or drug abuse patient.[facility] TroyIn the event this information is protected by the Federal Confidentiality of Alcohol and Drug Abuse Patient Records regulations: The Federal rules restrict any use of the information to criminally investigate or prosecute any alcohol or drug abuse patient.[facility] TroyIn the event this information is protected by the Federal Confidentiality of Alcohol and Drug Abuse Patient Records regulations: The Federal rules restrict any use of the information to criminally investigate or prosecute any alcohol or drug abuse patient.[facility] TroyIn the event this information is protected by the Federal Confidentiality of Alcohol and Drug Abuse Patient Records regulations: The Federal rules restrict any use of the information to criminally investigate or prosecute any alcohol or drug abuse patient.[facility] TroyIn the event this information is protected by the Federal Confidentiality of Alcohol and Drug Abuse Patient Records regulations: The Federal rules restrict any use of the information to criminally investigate or prosecute any alcohol or drug abuse patient.[facility] TroyIn the event this information is protected by the Federal Confidentiality of Alcohol and Drug Abuse Patient Records regulations: The Federal rules restrict any use of the information to criminally investigate or prosecute any alcohol or drug abuse patient.[facility] Care Teams (unrecognized sec tion and content) [...] Status: Active Member Role Status Dates FUNMILAYO, [facility] Primary Care Provider Active Dr. Alexandro Garces [...] Attending Provider, Emergency P rovider Active FUNMILAYO, [facility] Primary Care Provider Active Team Status: Inactive Member Role Status Dates FUNMILAYO, [facility] Primary Care Provider Active Dr. Rm Chirinos MD Attending Provider, Emergency Provi benjie Active Team Status: Inactive Member Role Status Dates FUNMILAYO, [facility] Primary Care Provider Active Dr. Edwin Scales MD Attending Provider, Emergency Provider Active Team Status: Inactive Member Role Status Dates FUNMILAYO, [facility] Primary Care Provider Active Dr. Olvin Ibarra [...] Status: Inactive Member Role Status Dates FUNMILAYO, [facility] Primary Care Provider Active Dr. Alexandro Garces MD Emergency Provider Active Dr. Vita Jefferson MD Admit Provider, Attending Prov ider Active Team Status: Active Member [facility] Provider Active Team Status: Inactive Member Role Status Dates No Primary Care Physician Primary Care Provider Active Dr. Siddharth Herrera MD Attending Provider, Emergency Pr ovider Active Team Status: Inactive Member Role Status Dates FUNMILAYO [facility] Primary Care Provider Active Dr. Rm Chirinos MD Emergency Provider Active Team Status: Inactive Member Role Status Dates FUNMILAYO, [facility] Primary Care Provider Active Dr. Edwin Scales [...] Dr. Ileana Lobo MD Attending Provider Active [employer]lass Fab[employer]ator Relationship Specialty Start Date End Date Alfredo Mccullough Sidhu Sr[address] [place] [address] PCP - General Family Practice 12/31/19 Latosha Johnson LSW [employer] Cleaning Machine Operator 12/10/14 Vamsi Cohen MD Primary Staff Physician Cardiology 11/13/18 Fiberglass Fabricator Relationship Specialty Start Date End Date Jamel, [facility]. [address] [place], [place] PCP - General Family Practice 12/31/19 Latosha Johnson VAULT CUSTODIAN [employer] Cleaning Machine Operator 12/10/14 Vamsi Cohen MD Primary Staff Physician Cardiology 11/13/18 Fiberglass Fabricator Relationship Specialty Start Date End Date Jamel, [facility]. [address] [place], [place] PCP - General Family Practice 12/31/19 Latosha Johnson VAULT CUSTODIAN Qu[employer] Cleaning Machine Operator 12/10/14 Vamsi Cohen MD Primary Staff Physician Cardiology 11/13/18 Fiberglass Fabricator Relationship Specialty Start Date End Date Jamel, [facility]. [address] [place], [place] PCP - General Family Practice 12/31/19 Latosha Johnson VAULT CUSTODIAN Qu[employer] Cleaning Machine Operator 12/10/14 Vamsi Cohen MD Primary Staff Physician Cardiology 11/13/18 Fiberglass Fabricator Relationship Specialty Start Date End Date [facility] [place] [facility]. [address] [place], [place] PCP - General Family Practice 12/31/19 Latosha Johnosn, VAULT CUSTODIAN Qu[employer] Cleaning Machine Operator 12/10/14 Vamsi Cohen MD Primary Staff Physician Cardiology 11/13/18 Fiberglass Fabricator Relationship Specialty Start Date End Date Paul, FAMILY PROGRAM SPECIALIST.SUPERVISOR AGRICULTURAL EDUCATION [address] [facility], [place] PCP - General Family Practice 03/08/22 Latosha Johnson, [facility] Quill Cleaning Machine Operator 12/10/14 Vamsi Cohen MD Primary Staff Physician Cardiology 11/13/18 Fiberglass Fabricator Relationship Specialty Start Date End Date Paul, FAMILY PROGRAM SPECIALIST.SUPERVISOR AGRICULTURAL EDUCATION [address] [facility], [place] PCP - General Family Practice 03/08/22 JohnsonLatosha khan, [facility] Quill Cleaning Machine Operator 12/10/14 Vamsi Cohen MD Primary Staff Physician Cardiology 11/13/18 Fiberglass Fabricator Relationship Specialty Start Date End Date Paul, FAMILY PROGRAM SPECIALIST.SUPERVISOR AGRICULTURAL EDUCATION [address] [facility], [place] PCP - General Family Practice 03/08/22 Latosha Johnson, [facility] Quill Cleaning Machine Operator 12/10/14 Vamsi Cohen MD Primary Staff Physician Cardiology 11/13/18 Fiberglass Fabricator Relationship Specialty Start Date End Date Paul, FAMILY PROGRAM SPECIALIST.SUPERVISOR AGRICULTURAL EDUCATION [address] [facility], [place] PCP - General Family Practice 03/08/22 Latosha Johnson, [facility] Quill Cleaning Machine Operator 12/10/14 Vamsi Cohen MD Primary Staff Physician Cardiology 11/13/18 Fiberglass Fabricator Relationship Specialty Start Date End Date Dashawn, FAMILY PROGRAM SPECIALIST.SUPERVISOR AGRICULTURAL EDUCATION [address] [facility], [place] PCP - General Family Practice 03/08/22 Latosha Johnson LSW Quill Cleaning Machine Operator 12/10/14 Vamsi Cohen MD Primary Staff Physician Cardiology 11/13/18 Fiberglass Fabricator Relationship Specialty Start Date End Date eliseoPaul, FAMILY PROGRAM SPECIALIST.SUPERVISOR AGRICULTURAL EDUCATION [address] [place], [place] PCP - General Family Practice 03/08/22 Latosha Johnson LSW Quill Cleaning Machine Operator 12/10/14 Vamsi Cohen MD Primary Staff Physician Cardiology 11/13/18 Fiberglass Fabricator Relationship Specialty Start Date End Date eliseoPaul, FAMILY PROGRAM SPECIALIST.SUPERVISOR AGRICULTURAL EDUCATION [address] [place], [place] PCP - General Family Practice 03/08/22 Latosha Johnson VAULT CUSTODIAN Quill Cleaning Machine Operator 12/10/14 Vamsi Cohen MD Primary Staff Physician Cardiology 11/13/18 Fiberglass Fabricator Relationship Specialty Start Date End Date eliseoDashawn, FAMILY PROGRAM SPECIALIST.SUPERVISOR AGRICULTURAL EDUCATION [address] [place] [address] PCP - General Family Practice 03/08/22 Latosha Johnson, [facility] Quill Cleaning Machine Operator 12/10/14 Vamsi Cohen MD Primary Staff Physician Cardiology 11/13/18 Fiberglass Fabricator Relationship Specialty Start Date End Date Paul, FAMILY PROGRAM SPECIALIST.SUPERVISOR AGRICULTURAL EDUCATION [address] [place] [address] PCP - General Family Practice 03/08/22 Latosha Johnson LSW Quill Cleaning Machine Operator 12/10/14 Vamsi Cohen MD Primary Staff Physician Cardiology 11/13/18 Fiberglass Fabricator Relationship Specialty Start Date End Date Dashawn Cain, FAMILY PROGRAM SPECIALIST.SUPERVISOR AGRICULTURAL EDUCATION [address] [place] PCP - General Family Practice 03/08/22 Latosha Johnson [facility] Quill Cleaning Machine Operator 12/10/14 Vamsi Cohen MD Primary Staff Physician Cardiology 11/13/18 Fiberglass Fabricator Relationship Specialty Start Date End Date Alfredo Mccullough Kerens Sr. [address] [place], [place] PCP - General Family Medicine 12/31/19 03/07/22 Dashawn Cain, FAMILY PROGRAM SPECIALIST.SUPERVISOR AGRICULTURAL EDUCATION [address] [facility] [place] [facility] - General Family Medicine 03/08/22 Latosha Johnson [facility] Quill Cleaning Machine Operator 12/10/14 Vamsi Cohen MD Primary Staff Physician Cardiology 11/13/18 Fiberglass Fabricator Relationship Specialty Start Date End Date Dashawn Cain, FAMILY PROGRAM SPECIALIST.SUPERVISOR AGRICULTURAL EDUCATION [address] [place], [place] PCP - General Family Medicine 03/08/22 Latosha Johnson [facility] Quill Cleaning Machine Operator 12/10/14 Vamsi Cohen MD Primary Staff Physician Cardiology 11/13/18 Fiberglass Fabricator Relationship Specialty Start Date End Date Dashawn Cain, FAMILY PROGRAM SPECIALIST.SUPERVISOR AGRICULTURAL EDUCATION [address] [place], [place] PCP - General Family Medicine 03/08/22 Latosha Johnson, [facility] Quill Cleaning Machine Operator 12/10/14 Vamsi Cohen MD Primary Staff Physician Cardiology 11/13/18 Fiberglass Fabricator Relationship Specialty Start Date End Date DelfinDashawn, FAMILY PROGRAM SPECIALIST.SUPERVISOR AGRICULTURAL EDUCATION [address] [facility] [place] [address] PCP - General Family Medicine 03/08/22 Latosha Johnson, [facility] Quill Cleaning Machine Operator 12/10/14 Vamsi Cohen MD Primary Staff Physician Cardiology 11/13/18 Fiberglass Fabricator Relationship Specialty Start Date End Date DelfinPaul, FAMILY PROGRAM SPECIALIST.SUPERVISOR AGRICULTURAL EDUCATION [address] [place] [address] PCP - General Family Medicine 03/08/22 Latosha Johnson, [facility] Quill Cleaning Machine Operator 12/10/14 Vamsi Cohen MD Primary Staff Physician Cardiology 11/13/18 Fiberglass Fabricator Relationship Specialty Start Date End Date DelfinDashawn, FAMILY PROGRAM SPECIALIST.SUPERVISOR AGRICULTURAL EDUCATION [address] [facility] [place] [address] PCP - General Family Medicine 03/08/22 Latosha Johnson, [facility] Quill Cleaning Machine Operator 12/10/14 Vamsi Cohen MD Primary Staff Physician Cardiology 11/13/18 Fiberglass Fabricator Relationship Specialty Start Date End Date DelfinDashawn, FAMILY PROGRAM SPECIALIST.SUPERVISOR AGRICULTURAL EDUCATION [address] [facility] [place] [address] PCP - General Family Medicine 03/08/22 Latosha Johnson, [facility] Quill Cleaning Machine Operator 12/10/14 Vamsi Cohen MD Primary Staff Physician Cardiology 11/13/18 Fiberglass Fabricator Relationship Specialty Start Date End Date DelfinDashawn, FAMILY PROGRAM SPECIALIST.SUPERVISOR AGRICULTURAL EDUCATION [address] [place] [address] PCP - General Family Medicine 03/08/22 Latosha Johnson [facility] Quill Cleaning Machine Operator 12/10/14 Vamsi Cohen MD Primary Staff Physician Cardiology 11/13/18 Fiberglass Fabricator Relationship Specialty Start Date End Date Dashawn, FAMILY PROGRAM SPECIALIST.SUPERVISOR AGRICULTURAL EDUCATION [address] [place] PCP - General Family Medicine 03/08/22 Latosha Johnson [facility] Quill Cleaning Machine Operator 12/10/14 Vamsi Cohen MD Primary Staff Physician Cardiology 11/13/18 Fiberglass Fabricator Relationship Specialty Start Date End Date Dashawn, FAMILY PROGRAM SPECIALIST.SUPERVISOR AGRICULTURAL EDUCATION [address] [facility] [place] [facility]CP - General Family Medicine 03/08/22 Latosha Johnson [facility] Quill Cleaning Machine Operator 12/10/14 Vamsi Cohen MD Primary Staff Physician Cardiology 11/13/18 Fiberglass Fabricator Relationship Specialty Start Date End Date DelfinDashawn, FAMILY PROGRAM SPECIALIST.SUPERVISOR AGRICULTURAL EDUCATION [address] [facility] [place] [facility]CP - General Family Medicine 03/08/22 Latosha Johnson [facility] Quill Cleaning Machine Operator 12/10/14 Vamsi Cohen MD Primary Staff Physician Cardiology 11/13/18 Fiberglass Fabricator Relationship Specialty Start Date End Date PaytonDashawn, FAMILY PROGRAM SPECIALIST.SUPERVISOR AGRICULTURAL EDUCATION PCP - General Family Medicine 03/08/22 Latosha Johnson LSW Quill Cleaning Machine Operator 12/10/14 Vamsi Cohen MD Primary Staff Physician Cardiology 11/13/18 Fiberglass Fabricator Relationship Specialty Start Date End Date RhetteliseoDashawn, FAMILY PROGRAM SPECIALIST.SUPERVISOR AGRICULTURAL EDUCATION PCP - General Family Medicine 03/08/22 Latosha Johnson LSW Quill Cleaning Machine Operator 12/10/14 Vamsi Cohen MD Primary Staff Physician Cardiology 11/13/18 Fiberglass Fabricator Relationship Specialty Start Date End Date Latosha Johnson [facility] Quill Cleaning Machine Operator 12/10/14 Vamsi Cohen MD Primary Staff Physician Cardiology 11/13/18 Fiberglass Fabricator Relationship Specialty Start Date End Date Vivi Smith MD [address] [place] [phone] PCP - General Family Medicine 12/08/22 Latosha Johnson [facility] Quill Cleaning Machine Operator 12/10/14 Vamsi Cohen MD Primary Staff Physician Cardiology 11/13/18 Fiberglass Fabricator Relationship Specialty Start Date End Date Vivi Smith MD [address] [place] [phone] PCP - General Family Medicine 12/08/22 Latosha Johnson, VAULT CUSTODIAN Quill Cleaning Machine Operator 12/10/14 Vamsi Cohen MD Primary Staff Physician Cardiology 11/13/18 Fiberglass Fabricator Relationship Specialty Start Date End Date Vivi Smith MD [facility] [place] [address] PCP - General Family Medicine 12/08/22 Latosha Johnson, [facility] Quill Cleaning Machine Operator 12/10/14 Vamsi Cohen MD Primary Staff Physician Cardiology 11/13/18 Fiberglass Fabricator Relationship Specialty Start Date End Date Vivi Smith MD [facility] [place] [address] PCP - General Family Medicine 12/08/22 Latosha Johnson, [facility] Quill Cleaning Machine Operator 12/10/14 Vamsi Cohen MD Primary Staff Physician Cardiology 11/13/18 Fiberglass Fabricator Relationship Specialty Start Date End Date Vivi Smith MD [address] [place] [address] PCP - General Family Medicine 12/08/22 Latosha Johnson, [facility] Quill Cleaning Machine Operator 12/10/14 Vamsi Cohen MD Primary Staff Physician Cardiology 11/13/18 Fiberglass Fabricator Relationship Specialty Start Date End Date Vivi Smith MD [facility] [place] [place] [address] PCP - General Family Medicine 12/08/22 Latosha Johnson, [facility] Quill Cleaning Machine Operator 12/10/14 Vamsi Cohen MD Primary Staff Physician Cardiology 11/13/18 Fiberglass Fabricator Relationship Specialty Start Date End Date Vivi Smith MD [address] [place] [phone] PCP - General Family Medicine 12/08/22 Latosha Johnson, [facility] Quill Cleaning Machine Operator 12/10/14 Vamsi Cohen MD Primary Staff Physician Cardiology 11/13/18 Fiberglass Fabricator Relationship Specialty Start Date End Date Vivi Smith MD [address] [place] [phone] PCP - General Family Medicine 12/08/22 Latosha Johnson, VAULT CUSTODIAN Quill Cleaning Machine Operator 12/10/14 Vamsi Cohen MD Primary Staff Physician Cardiology 11/13/18 Fiberglass Fabricator Relationship Specialty Start Date End Date Dashawn Cain, FAMILY PROGRAM SPECIALIST.SUPERVISOR AGRICULTURAL EDUCATION PCP - General Family Medicine 03/08/22 11/06/22 Vivi Smith MD [address] [place] [phone] PCP - General Family Medicine 12/08/22 Latosha Johnson, [facility] Quill Cleaning Machine Operator 12/10/14 Vamsi Cohen MD Primary Staff Physician Cardiology 11/13/18 Fiberglass Fabricator Relationship Specialty Start Date End Date Vivi Smith MD [address] [place] [phone] PCP - General Family Medicine 12/08/22 Latosha Johnson, [facility] Quill Cleaning Machine Operator 12/10/14 Vamsi Cohen MD Primary Staff Physician Cardiology 11/13/18 Fiberglass Fabricator Relationship Specialty Start Date End Date Vivi Smith MD [address] [place] [phone] PCP - General Family Medicine 12/08/22 Latosha Johnson LSW Quill Cleaning Machine Operator 12/10/14 Vamsi Cohen MD Primary Staff Physician Cardiology 11/13/18 Fiberglass Fabricator Relationship Specialty Start Date End Date No, Physician [facility] PCP - General 03/20/23 Team Status: Active Member Role Status Dates No Primary Care Physician Primary Care Provider Active Dr. Lin Johansen MD Emergency Provider Active Dr. David Smith MD Admit Provider, Attending Provider Active Fiberglass Fabricator Relationship Specialty Start Date End Date Alfredo Mccullough MD [address] [place] [phone] PCP - General 01/18/21 Team Status: Inactive Member Role Status Dates Dr. Greg Philip DO Attending Provider, Emergency P neida Active No Primary Care Physician Primary Care Provider Active Team Status: Inactive Member Role Status Dates No Primary Care Physician Primary Care Provider Active Dr. Marc Carl , Emergency Provider Active Fiberglass Fabricator Relationship Specialty Start Date End Date Vivi Smith MD [address] [place] [phone] PCP - General Family Medicine 12/08/22 Latosha Johnson LSW Quill Cleaning Machine Operator 12/10/14 Vamsi Cohen MD Primary Staff Physician [...] DO Admit Provider, Attending Pr ovider Active Fiberglass Fabricator Relationship Specialty Start Date End Date Vivi Smith MD [address] [place] [phone] PCP - General Family Medicine 12/08/22 Latosha Johnson, VAULT CUSTODIAN Quill Cleaning Machine Operator 12/10/14 Vamsi Cohen MD Primary Staff Physician Cardiology 11/13/18 Fiberglass Fabricator Relationship Specialty Start Date End Date [facility] [address] [place] [address] PCP - General 08/15/23 Fiberglass Fabricator Relationship Specialty Start Date End Date Vivi Smith MD [address] [place] [phone] PCP - General Family Medicine 12/08/22 Latosha Johnson, MICHELLE Quill Cleaning Machine Operator 12/10/14 Vamsi Cohen MD Primary Staff Physician Cardiology 11/13/18 Fiberglass Fabricator Relationship Specialty Start Date End Date Vivi Smith MD [address] [place] [phone] PCP - General Family Medicine 12/08/22 Latosha Johnson, MICHELLE Quill Cleaning Machine Operator 12/10/14 Vamsi Cohen MD Primary Staff Physician Cardiology 11/13/18 Fiberglass Fabricator Relationship Specialty Start Date End Date Vivi Smith MD [address] [place] [phone] PCP - General Family Medicine 12/08/22 JohnsonLatosha reddy, [facility] Quill Cleaning Machine Operator 12/10/14 Vamsi Cohen MD Primary Staff Physician Cardiology 11/13/18 Kyara Luis, fire safety managerMilitary Analyst 10/12/23 Team Status: Active Member Role Status Dates SARAH MELLO Primary Care Provider Active Dr. Alexandro Garces MD Emergency Provider Active Dr. Vita Jefferson MD Admit Provider, Attending Prov ider Active Fiberglass Fabricator Relationship Specialty Start Date End Date Vivi Smith MD [address] [place] [phone] PCP - General Family Medicine 12/08/22 Latosha Johnson, [facility] Quill Cleaning Machine Operator 12/10/14 Vamsi Cohen MD Primary Staff Physician Cardiology 11/13/18 Kyara Luis, fire safety managerMilitary Analyst 10/12/23 Kyara Luis RN Primary Care Nitric Acid Plant Operator 10/19/23 Fiberglass Fabricator Relationship Specialty Start Date End Date Gracie Godoy [address] [place] [address] PCP - General 08/15/23 Team Status: Inactive Member Role Status Dates Out of Town Doctor Primary Care Provider Active Dr. Lin Johansen MD Attending Provider, Emergency Provider Active Team Status: Inactive Member Role Status Dates Out of Town Doctor Primary Care Provider Active Ed Physician Provider Emergency Provider Active Fiberglass Fabricator Relationship Specialty Start Date End Date Vivi Smith MD [address] [place] [phone] PCP - General Family Medicine 12/08/22 Latosha Johnosn, VAULT CUSTODIAN Quill Cleaning Machine Operator 12/10/14 Vamsi Cohen MD Primary Staff Physician Cardiology 11/13/18 Kyara Luis fire safety managerMilitary Analyst 10/12/23 Fiberglass Fabricator Relationship Specialty Start Date End Date [facility] [address] [place] [address] PCP - General 08/15/23 Fiberglass Fabricator Relationship Specialty Start Date End Date [facility] [address] [place] [address] PCP - General 08/15/23 Fiberglass Fabricator Relationship Specialty Start Date End Date Vivi Smith MD [address] [place] [phone] PCP - General Family Medicine 12/08/22 Latosha Johnson, VAULT CUSTODIAN Quill Cleaning Machine Operator 12/10/14 Vamsi Cohen MD Primary Staff Physician Cardiology 11/13/18 Kyara Luis, fire safety managerMilitary Analyst 10/12/23 Fiberglass Fabricator Relationship Specialty Start Date End Date Vivi Smith MD [address] [place] [phone] PCP - General Family Medicine 12/08/22 Latohsa Johnson, MICHELLE Quill Cleaning Machine Operator 12/10/14 Vamsi Cohen MD Primary Staff Physician Cardiology 11/13/18 Kyara Luis, fire safety managerMilitary Analyst 10/12/23 Fiberglass Fabricator Relationship Specialty Start Date End Date Vivi Smith MD [address] [place] [phone] PCP - General Family Medicine 12/08/22 Latosha Johnson, VAULT CUSTODIAN Quill Cleaning Machine Operator 12/10/14 Vamsi Cohen MD Primary Staff Physician Cardiology 11/13/18 Kyara Luis, fire safety managerMilitary Analyst 10/12/23 Fiberglass Fabricator Relationship Specialty Start Date End Date Vivi Smith MD [address] [place] [phone] PCP - General Family Medicine 12/08/22 Latosha Johnson, VAULT CUSTODIAN Quill Cleaning Machine Operator 12/10/14 Vamsi Cohen MD Primary Staff Physician Cardiology 11/13/18 Kyara Luis, fire safety managerMilitary Analyst 10/12/23 Fiberglass Fabricator Relationship Specialty Start Date End Date [facility] [address] [place] [address] PCP - General 08/15/23 Fiberglass Fabricator Relationship Specialty Start Date End Date [facility] [address] [place] [address] PCP - General 08/15/23 Fiberglass Fabricator Relationship Specialty Start Date End Date Vivi Smith MD [address] [place] [phone] PCP - General Family Medicine 12/08/22 Latosha Johnson, VAULT CUSTODIAN Quill Cleaning Machine Operator 12/10/14 Vamsi Cohen MD Primary Staff Physician Cardiology 11/13/18 Kyara Luis, fire safety managerMilitary Analyst 10/12/23 Fiberglass Fabricator Relationship Specialty Start Date End Date Vivi Smith MD [address] [place] [address] PCP - General Family Medicine 12/08/22 Latosha Johnson, [facility] Quill Cleaning Machine Operator 12/10/14 Vamsi Cohen MD Primary Staff Physician Cardiology 11/13/18 Kyara Luis, fire safety managerMilitary Analyst 10/12/23 Fiberglass Fabricator Relationship Specialty Start Date End Date Vivi Smith MD [address] [place] [phone] PCP - General Family Medicine 12/08/22 Latosha Johnson, [facility] Quill Cleaning Machine Operator 12/10/14 Vamsi Cohen MD Primary Staff Physician Cardiology 11/13/18 Kyara Luis, fire safety managerMilitary Analyst 10/12/23 Fiberglass Fabricator Relationship Specialty Start Date End Date Vivi Smith MD [address] [place], [place] [phone] PCP - General Family Medicine 12/08/22 Latosha Johnson, [facility] Quill Cleaning Machine Operator 12/10/14 Vamsi Cohen MD Primary Staff Physician Cardiology 11/13/18 Kyara Luis, fire safety managerMilitary Analyst 10/12/23 Fiberglass Fabricator Relationship Specialty Start Date End Date Vivi Smith MD [address] [place] [phone] PCP - General Family Medicine 12/08/22 Latosha Johnson LSW Quill Cleaning Machine Operator 12/10/14 Vamsi Cohen MD Primary Staff Physician Cardiology 11/13/18 Kyara Luis fire safety managerMilitary Analyst 10/12/23 Fiberglass Fabricator Relationship Specialty Start Date End Date Vivi Smith MD [address] [place] [phone] PCP - General Family Medicine 12/08/22 Latosha Johnson, MICHELLE Quill Cleaning Machine Operator 12/10/14 Vamsi Cohen MD Primary Staff Physician Cardiology 11/13/18 Kyara Luis fire safety managerMilitary Analyst 10/12/23 Fiberglass Fabricator Relationship Specialty Start Date End Date Alfredo Mccullough MD [address] [place] [phone] PCP - General 01/18/21 Fiberglass Fabricator Relationship Specialty Start Date End Date Alfredo Mccullough MD [address] [place] [address] [phone] PCP - General 01/18/21 Fiberglass Fabricator Relationship Specialty Start Date End Date Vivi Smith MD [address] [place] [phone] PCP - General Family Medicine 12/08/22 Latosha Johnson, VAULT CUSTODIAN Quill Cleaning Machine Operator 12/10/14 Vamsi Cohen MD Primary Staff Physician Cardiology 11/13/18 Gohlke, Kyara S, fire safety managerMilitary Analyst 10/12/23 Fiberglass Fabricator Relationship Specialty Start Date End Date iVvi Smith MD [address] [place], [place] [phone] PCP - General Family Medicine 12/08/22 Latosha Johnson, [facility] Quill Cleaning Machine Operator 12/10/14 Vamsi Cohen MD Primary Staff Physician Cardiology 11/13/18 Kyara Luis, fire safety managerMilitary Analyst 10/12/23 Fiberglass Fabricator Relationship Specialty Start Date End Date Vivi Smith MD [address] [place] [address] PCP - General Family Medicine 12/08/22 Latosha Johnson, [facility] Quill Cleaning Machine Operator 12/10/14 Vamsi Cohen MD Primary Staff Physician Cardiology 11/13/18 Kyara Luis, fire safety managerMilitary Analyst 10/12/23 Fiberglass Fabricator Relationship Specialty Start Date End Date Vivi Smith MD [address] [place] [address] PCP - General Family Medicine 12/08/22 Latosha Johnson, [facility] Quill Cleaning Machine Operator 12/10/14 Vamsi Cohen MD Primary Staff Physician Cardiology 11/13/18 Kyara Luis, fire safety managerMilitary Analyst 10/12/23 Fiberglass Fabricator Relationship Specialty Start Date End Date Vivi Smith MD [address] [place], [place] [phone] PCP - General Family Medicine 12/08/22 Latosha Johnson, [facility] Quill Cleaning Machine Operator 12/10/14 Vamsi Cohen MD Primary Staff Physician Cardiology 11/13/18 Kyara Luis, fire safety managerMilitary Analyst 10/12/23 Fiberglass Fabricator Relationship Specialty Start Date End Date Vivi Smith MD [address] [place] [phone] PCP - General Family Medicine 12/08/22 Latosha Johnson [facility] Quill Cleaning Machine Operator 12/10/14 Vamsi Cohen MD Primary Staff Physician Cardiology 11/13/18 Kyara Luis, fire safety managerMilitary Analyst 10/12/23 Fiberglass Fabricator Relationship Specialty Start Date End Date Vivi Smith MD [address] [place] [phone] PCP - General Family Medicine 12/08/22 Latosha Johnson, [facility] Quill Cleaning Machine Operator 12/10/14 Vamsi Cohen MD Primary Staff Physician Cardiology 11/13/18 Kyara Luis, fire safety managerMilitary Analyst 10/12/23 Fiberglass Fabricator Relationship Specialty Start Date End Date [facility] [address] [place] [address] PCP - General 08/15/23 Fiberglass Fabricator Relationship Specialty Start Date End Date [facility] [address] [place] [address] PCP - General 08/15/23 Reason for Visit [...] Referred By Ajay cobb Referred To Contact AGRONOMIST Diagnoses STD exposure ROCEPHIN INJECTION - GONORRHEA Procedures INJECTION , Phoebe Richter, FAMILY PROGRAM SPECIALIST.SUPERVISOR AGRICULTURAL EDUCATION [address] [place] [address] Phoebe, FAMILY PROGRAM SPECIALIST.SUPERVISOR AGRICULTURAL EDUCATION [address] [place] [address] Referral ID Status Reason Start Date Expiration Date V isits Requested Visits Authorized [id number] Closed Benefit Check 05/10/2022 08/27/2022 1 1 [...] Expiration Date Visits Re quested Visits Authorized [id number] 1 1 Reason Onset Date Comments Med Refill 05/02/2023 Reason Comments High Blood Sugar Reason Onset Date Comments Transition Of Care 08/15/2023 Reason Onset Date Comments Military Analyst Chronic Care 09/29/2023 Reason Onset Date Comments Refill Request 09/21/2023 Reason Comments Forms DME: CCS for pump gelason pplies Reason Onset Date Comments Military Analyst Chronic Care 10/12/2023 Reason Onset Date Comments Transition Of Care 10/19/2023 Message Reason Onset Date Comments Transition Of Care 10/20/2023 Reason Onset Date Comments Transition Of Care 10/27/2023 Reason Onset Date Comments Transition Of Care 11/03/2023 Reason Onset Date Comments Transition Of Care 11/10/2023 Reason Comments Psoriasis (PKN) Reason Onset Date Comments Military Analyst Chronic Care 12/15/2023 Reason Onset Date Comments [...] DSME MEDICAL NUTRITION ASSMT&IVNTJ INDIV EACH 15 MA MEDICAL NUTRITION ASSMT&IVNTJ INDIV EACH 15 MA MEDICAL NUTRITION ASSMT&IVNTJ INDIV EACH 15 MA MEDICAL NUTRITION ASSMT&IVNTJ INDIV EACH 15 MA Kvng Lewis MD [address] [place] [address] Referral ID Status Reason Start Date Expiration Date V isits Requested Visits Authorized [id number] Closed PCP Requested Referral 03/12/2024 03/12/2025 1 [...] PLACED TUBE OR TUBE less than 14 [place]. To administer dissolved tablet(s) mix with 4 [...] - Provider: Sixto Mercado RN)[id number] [facility] Provider: Liang Boothe, STIVEN) promethazine (PHENERGAN) suppository 12.5 mg 12.5 mg, Rectal, Every 6 hours PRN, nausea, vomiting, Starting on Mon03/21/23 at 1006 sodium chloride (PF) (NS) 0.9 % contrast line flush 10 mL (COMPLETED) 10 mL, Intravenous, Once in imaging, contrast, Per computer specialist (Radiology) for line patency check prior to contrast administration, Starting on Mon03/20/23 at 0551, For 1 dose 0806 (Given - Provider: Kaylyn Alvarado, TECHNOLOGIST) sodium chloride (PF) (NS) 0.9 % contrast line flush 80 mL (COMPLETED) 80 mL, Intravenous, Once in imaging, contrast, Per computer specialist (Radiology), Starting on Mon03/20/23 at 0551, For [...] BE BASED ON THE PRIMARY CLINICAL RECORDS. [employer] provides no warranty or guarantee of the accuracy or completeness of information in this document.
[2025-03-18] VITALS (13 sets, daily range): BP systolic 99–140; BP diastolic 51–86; PULSE 42–145; RESP 10–33; TEMP 36.3–37.2; O2SAT 95–100; BMI 22.8
--- OUTSIDE RECORDS SUMMARY | 2025-03-18 00:12 | XMS RPT_ITS | CCD ---
Author Organization [facility] Care Team Providers Care Special Events Coordinator Name Role Phone MEDICAL, CLINIC Unavailable Unavailable TEACH, MTS LUCY Unavailable Unavailable VAMSI MARRUFO Unavailable Unavailable MED[facility], CLINIC Unavailable Unavailable Latosha Castro Unavailable Unavailab Vamsi Zaidi MD Unavailable [facility] Primary Care Provi benjie PHYSICIAN, PATIENT UNSURE Primary Care Physician Unavailable Kamwesa OPERATIONS REPRESENTATIVE.Dashawn MALAVE Primary Care Provider Vamsi Cohen MD Unavailable Kamwesa OPERATIONS REPRESENTATIVE.Dashawn MALAVE Primary Care Provider Vamsi Cohen MD Unavailable [facility] Care Provi benjie Kamwesa OPERATIONS REPRESENTATIVE.Dashawn MALAVE Primary Care Provider Latosha Castro Unavailable Unavailab Vamsi Zaidi MD Unavailable Kamwesa OPERATIONS REPRESENTATIVE.Dashawn MALAVE Primary Care Provider Kamwesa OPERATIONS REPRESENTATIVE.Dashawn MALAVE Primary Care Provider Vivi Smith MD Primary Care Provider Kamwesa OPERATIONS REPRESENTATIVE.Dashawn MALAVE Primary Care Provider No, Physician Primary Care Provider UnavailBENITO Mensah Attending Unavailable ERNIE IRLEAND Admitting Unavailabl e NO, PHYSICIAN Primary Care Unavailable [facility], [facility] Consulting Un available Care Physician, No Primary Primary Care Provider Unavailable Dr. Lin Johansen Emergency Provider Dr. David Smith Admit Provider Dr. David Smith Attending Provider Dr. David Smith Other Provider Dr. Vincenzo Castañeda Attending Provider Dr. Ileana Lobo Attending Provider Dr. Ileana Lobo Other Provider Jamel LOCKE, Alfredo Primary Care Provider Vamsi Cohen MD Unavailable Dr. Ileana Lobo Attending Provider Care Physician, No Primary Primary Care Provider Unavailable Dr. Lin Johansen Emergency Provider Dr. David Smith Admit Provider Dr. David Smith Attending Provider Dr. David Smith Other Provider Dr. Ileana Lobo Attending Provider Dr. Ileana Lobo Other Provider [facility] Primary Care Provider Unav ailDr. Lul Ferrell Emergency Provider Dr. Vamsi Duvall Admit Provider Unavailabl e Dr. Vamsi Duvall Other Provider Unavailabl e Dr. Dangelo Encarnacion Attending Provider Dr. Dangelo Encarnacion Other Provider Care Physician, No Primary Primary Care [...] Attending Provider Dr. Dangelo Encarnacion Other Provider [phone] FUNMILAYO SMITH Primary Care Provider Dr. Alexandro [...] SMITH, VIVI BARAHONA Attending Unavailabl e [facility] Primary Care Unavailabl e SMITH, AHSCFranklin BARAHONA Primary Care Unavailabl e SMITH, AHSCFranklin KHPATRICIO Primary Care Unavailabl e CAMILO CENTENO Admitting Unavailable DAVID BURNETT Attending Unavailable KVNG LEWIS Consulting Unavailable Sarah LOCKE, Vivi Barahona Primary Care Provider Jamel LOCKE, Alfredo Cobb Primary Care Provider Vamsi Cohen MD Unavailable [phone] LETICIA HYLOTN Referring Unavailable SMITH, AHMAD KHPATRICIO Primary Care Unavailabl e SMITH, AHMAD KHPATRICIO Primary Care Unavailabl e LETICIA HYLTON Attending Unavailable SMITH, AHMAD KHPATRICIO Primary Care Unavailabl e JESSICA GUERRERO Attending Unavailable SMITH, AHMAD KHARIS Primary Care UnavailKVGN Bush Attending Unavailable SMITH, AHMAD KHARIS Primary Care Unavailabl e JASON PAREDES Attending Unavailable SMITH, AHMAD KHARIS Primary Care Unavailabl e JASON PAREDES Referring Unavailable SMITH, AHMAD KHARIS Primary Care Unavailabl e JESSICA GUERRERO Attending Unavailable KVNG LEWIS Referring Unavailable SMITH, [facility] Care Unavailabl e LETICIA HYLTON Attending Unavailable SMITH, AHMAD KHARIS Primary Care Unavailabl e MISHEL ORTEZ Attending Unavailable [facility] Primary Care Unavailable Care Physician, No Primary [...] Care Unava ilable Edie Bear Referring Unavailable Edei Bear Attending Unavailable Care Physician, No Primary [...] oxyCODONE Drug Allergy 4 Itching, Rash, Intolerance [facility] Adhesive Tape (1 source) Adhesive Tape Substance Allergy 4 Rash [facility] Cephalosporins (antibiotic) (2 sources) Cephalexin Drug Allergy 4 Other: See Comments [facility] NSAIDs (1 source) Indomethacin Drug Allergy 4 Rash [facility] Ondansetron (2 sources) Ondansetron Drug Allergy 5 Other: See Comments [facility] Opioid Agonists (2 sources) Morphine Drug Allergy 4 Itching, Rash [facility] (20 sources) Acetaminophen / oxyCODONE; Translations: [acetaminophen-ox ycodone] Drug Allergy 4 Rash, Intolerance, Itching [facility] (20 sources) Adhesive Tape; Translations: [ADHESIVE TAPE (ROSINS)] Allergy to substance 4 Rash [facility] (20 sources) Cephalexin; Translations: [cephalexin] Drug Allergy 4 Other: See Comments, Urinary tract infectious disease (disorder) [facility] Work Phone: (20 sources) Morphine; Translations: [morphine] Drug Allergy 4 Rash, Itching [facility] (20 sources) Ondansetron; Translations: [ONDANSETRON HCL (PF)] Drug Allergy 5 Other: See Comments, Other (See Comments) [facility] (1 source) Adhesive Tape Propensity to adverse reactions to substance Redness [facility] (20 sources) Ondansetron; Translations: [ondansetron] Drug Allergy 5 I BLACK OUT AND LOSE CONTROL OF MY BLADDER [facility] (20 sources) Adhesive agent; Translations: [ADHESIVE] Drug Allergy 3 [facility] (20 sources) Indomethacin; Translations: [INDOMETHACIN] Drug Allergy 4 [facility] (2 sources) Adhesive Tape-Silicones; Translations: [ADHESIVE TAPE-SILICONES] Propensity to adverse reactions to drug 3 [facility] (1 source) Ondansetron; Translations: [ONDANSETRON HCL] Drug Allergy 3 [facility] Repository (2 sources) Acetaminophen Drug Allergy 3 [facility] (15 sources) Adhesive Tape; Translations: [adhesive tape] Allergy to substance 3 [facility] (15 sources) oxyCODONE Drug Allergy 3 Itching, [facility] (1 source) Acetaminophen Drug Allergy 3 Itching, Rash [facility] (1 source) Wound Dressing Adhesive Drug Allergy 3 [facility] (1 source) Cephalexin Drug Allergy 5 [facility] [...] hours as needed for pain HYDROcodone-aceta minophen ([place]) 5-325 MG tablet TAKE 1 TABLET BY [...] Active Comment on above: Use as directed [id number] actuat albuterol 0.09 mg/actuat metered dose [...] Comment on above: Take 2 tablets by [facility] once daily for 1 day. benzoyl peroxide [...] 12-09-2024 cholecalcifero l (Vitamin D-3) 1.25 MG (10546 UT) capsule Take by mouth 1 (one) [...] / neomycin 3.5 mg/ml / polymyxin b 27210 unt/ml ophthalmic suspension (1 source) Aminoglycoside Antibacterial, [...] Start: 09-20-2023 End: 09-24-2023 Insulin Glargine (Lantus Sanrda ostar U-100 Insulin) 100 unit/mL (3 mL) [...] long-term current use of insulin ([facility]) , Insulin pump status Inject 43 Units [...] type 1, controlled, without complications ([facility]) Please inject three times a day with [...] long-term current use of insulin ([facility]) Use in the Insulin Pump for TDD [...] Comment on above: Take 1 capsule by [facility] twice daily with meals. metoclopramide 5 mg [...] of central line, initial encounter ([facility]) 2 mL by INTRALUMINAL route one time [...] long-term current use of insulin ([facility]) , Insulin pump status Use 1 [place] in the nose as needed for low [...] subcutaneously for insulin shock. 250.03 Use 1 [place] in the n ose as needed for [...] Comment on above: Take 1 capsule by [facility] once daily. Administer on an empty stomach. [...] current use of drug therapy; Translations: [Other remote computer terminal operator (current) drug therapy] 01-27-2025 Episodic Other aftercare (2 sources) Other care home (current) drug therapy; Translations: [Other care home (current) drug therapy] Onset: 01-27-2025 Episodic Other [...] Performed By: #### L 501.080 ####[facility] [address] [place], [place], [address] FINGERSTICK GLU 272 mg/dL High 74-106 [facility] Comment on above: Result Comment: EDGAR GEMENT OF PATIENT CARE PER NURSING PROTOCOL Performed By: #### L 501.080 ####[facility] [address] [place], [address] Basic Metabolic Profile (BMP )on 03-07-2025 BUN Normal 4-19 [facility] Comment on above: Result Comment: Canc elled via OM: MD Ordered Performed By: #### L 500.2500 ####[facility] [address] [place], [address] BUN/CRE Normal 10-20 [facility] Comment on above: Result Comment: Canc elled via OM: MD Ordered Performed By: #### L 500.2500 ####[facility] [address] [place], [address] Calcium Normal 7.6-11.0 [facility] Comment on above: Result Comment: Canc elled via OM: MD Ordered Performed By: #### L 500.2500 ####[facility] [address] [place], [address] CL Normal 98-108 [facility] Comment on above: Result Comment: Canc elled via OM: MD Ordered Performed By: #### L 500.2500 ####[facility] [address] [place], [address] CO2 Normal 21.0-32.0 [facility] Comment on above: Result Comment: Canc elled via OM: MD Ordered Performed By: #### L 500.2500 ####[facility] [address] [place], [address] CREAT,SERUM Normal 0.70-1.20 [facility] Comment on above: Result Comment: Canc elled via OM: MD Ordered Performed By: #### L 500.2500 ####[facility] [address] [place], [address] eGFR Normal >60 [facility] Comment on above: Result Comment: Canc elled via OM: MD Ordered Performed By: #### L 500.2500 ####[facility] [address] [place], [address] GAP Normal 5-15 [facility] Comment on above: Result Comment: Canc elled via OM: MD Ordered Performed By: #### L 500.2500 ####[facility] [address] [place], [address] GLU Normal 70-99 [facility] Comment on above: Result Comment: Canc elled via OM: MD Ordered Performed By: #### L 500.2500 ####[facility] [address] [place], [address] Potassium Normal 3.3-5.1 [facility] Comment on above: Result Comment: Canc elled via OM: MD Ordered Performed By: #### L 500.2500 ####[facility] [address] [place], [address] Basic Metabolic Profile (BMP) Normal 133-145 [facility] Comment on above: Result Comment: Canc elled via OM: MD Ordered Performed By: #### L 500.2500 ####[facility] [address] [place], [address] BUN/CRE 8.1 RATIO Low 10-20 [facility] Comment on above: Performed By: #### L 500.2500 ####[facility] [address] [place], [address] Calcium [Mass/Vol] 8.0 mg/dL Normal 7.6-11.0 [facility] Comment on above: Performed By: #### L 500.2500 ####[facility] [address] [place], [address] Chloride [Moles/Vol] 110 mmol/L High 98-108 [facility] Comment on above: Performed By: #### L 500.2500 ####[facility] [address] [place], [address] CO2 [Moles/Vol] 21.4 mmol/L Normal 21.0-32.0 [facility] Comment on above: Performed By: #### L 500.2500 ####[facility] [address] [place], [address] Creatinine [Mass/Vol] 0.58 mg/dL Low 0.70-1.20 [facility] Comment on above: Performed By: #### L 500.2500 ####[facility] [address] [place], [address] ECRCL 148.22 ml/min Normal 50-250 [facility] Comment on above: Performed By: #### L 500.2500 ####[facility] [address] [place], [address] GAP 8 Normal 5-15 [facility] Comment on above: Performed By: #### L 500.2500 ####[facility] [address] [place], [address] GFR/1.73 sq M.predicted among non-blacks MDRD (S/P/Bld) [Vol rate/Area] 125 mL/min/{1.73_m2} Normal >60 [facility] Comment on above: Result Comment: mL/m in/1.73m2 CKD-EPI Creatinine Equation (2020) Performed By: #### L 500.2500 ####[facility] [address] [place], [address] Glucose [Mass/Vol] 113 mg/dL High 70-99 [facility] Comment on above: Performed By: #### L 500.2500 ####[facility] [address] [place], [address] Potassium [Moles/Vol] 3.2 mmol/L Low 3.3-5.1 [facility] Comment on above: Performed By: #### L 500.2500 ####[facility] [address] [place], [address] Sodium [Moles/Vol] 139 mmol/L Normal 133-145 [facility] Comment on above: Performed By: #### L 500.2500 ####[facility] [address] [place], [address] Urea nitrogen [Mass/Vol] 5 mg/dL Normal 4-19 [facility] Comment on above: Performed By: #### L 500.2500 ####[facility] [address] [place], [address] BUN/CRE 9.9 RATIO Low 10-20 [facility] Comment on above: Performed By: #### L 500.2500 ####[facility] [address] [place], [address] Calcium [Mass/Vol] 8.2 mg/dL Normal 7.6-11.0 [facility] Comment on above: Performed By: #### L 500.2500 ####[facility] [address] [place], [address] Chloride [Moles/Vol] 109 mmol/L High 98-108 [facility] Comment on above: Performed By: #### L 500.2500 ####[facility] [address] [place], [address] CO2 [Moles/Vol] 20.2 mmol/L Low 21.0-32.0 [facility] Comment on above: Performed By: #### L 500.2500 ####[facility] [address] [place], [address] Creatinine [Mass/Vol] 0.63 mg/dL Low 0.70-1.20 [facility] Comment on above: Performed By: #### L 500.2500 ####[facility] [address] [place], [address] ECRCL 136.46 ml/min Normal 50-250 [facility] Comment on above: Performed By: #### L 500.2500 ####[facility] [address] [place], [address] GAP 10 Normal 5-15 [facility] Comment on above: Performed By: #### L 500.2500 ####[facility] [address] [place], [address] GFR/1.73 sq M.predicted among non-blacks MDRD (S/P/Bld) [Vol rate/Area] 122 mL/min/{1.73_m2} Normal >60 [facility] Comment on above: Result Comment: mL/m in/1.73m2 CKD-EPI Creatinine Equation (2020) Performed By: #### L 500.2500 ####[facility] [address] [place], [address] Glucose [Mass/Vol] 136 mg/dL High 70-99 [facility] Comment on above: Performed By: #### L 500.2500 ####[facility] [address] [place], [address] Potassium [Moles/Vol] 3.3 mmol/L Normal 3.3-5.1 [facility] Comment on above: Performed By: #### L 500.2500 ####[facility] [address] [place], [address] Sodium [Moles/Vol] 139 mmol/L Normal 133-145 [facility] Comment on above: Performed By: #### L 500.2500 ####[facility] [address] [place], [address] Urea nitrogen [Mass/Vol] 6 mg/dL Normal 4-19 [facility] Comment on above: Performed By: #### L 500.2500 ####[facility] [address] [place], [address] Bedside Glucoseon 03-07-2025 FINGERSTICK GLU 282 mg/dL High 74-106 [facility] Comment on above: Result Comment: EDGAR GEMENT OF PATIENT CARE PER NURSING PROTOCOL Performed By: #### L 501.080 ####[facility] [address] [place], [address] FINGERSTICK GLU 262 mg/dL High 74-106 [facility] Comment on above: Result Comment: EDGAR GEMENT OF PATIENT CARE PER NURSING PROTOCOL Performed By: #### L 501.080 ####[facility] [address] [place], [address] FINGERSTICK GLU 354 mg/dL High 74-106 [facility] Comment on above: Result Comment: EDGAR GEMENT OF PATIENT CARE PER NURSING PROTOCOL Performed By: #### L 501.080 ####[facility] [address] [place], [address] FINGERSTICK GLU 169 mg/dL High 74-106 [facility] Comment on above: Result Comment: EDGAR GEMENT OF PATIENT CARE PER NURSING PROTOCOL Performed By: #### L 501.080 ####[facility] [address] [place], [address] FINGERSTICK GLU 163 mg/dL High 74-106 [facility] Comment on above: Result Comment: EDGAR GEMENT OF PATIENT CARE PER NURSING PROTOCOL Performed By: #### L 501.080 ####[facility] [address] [place], [address] FINGERSTICK GLU 106 mg/dL Normal 74-106 [facility] Comment on above: Result Comment: EDGAR GEMENT OF PATIENT CARE PER NURSING PROTOCOL Performed By: #### L 501.080 ####[facility] [address] [place], [address] FINGERSTICK GLU 88 mg/dL Normal 74-106 [facility] Comment on above: Result Comment: EDGAR GEMENT OF PATIENT CARE PER NURSING PROTOCOL Performed By: #### L 501.080 ####[facility] [address] [place], [address] FINGERSTICK GLU 94 mg/dL Normal 74-106 [facility] Comment on above: Result Comment: EDGAR GEMENT OF PATIENT CARE PER NURSING PROTOCOL Performed By: #### L 501.080 ####[facility] [address] [place], [address] FINGERSTICK GLU 129 mg/dL High 74-106 [facility] Comment on above: Result Comment: EDGAR GEMENT OF PATIENT CARE PER NURSING PROTOCOL Performed By: #### L 501.080 ####[facility] [address] [place], [address] FINGERSTICK GLU 119 mg/dL High 74-106 [facility] Comment on above: Result Comment: EDGAR GEMENT OF PATIENT CARE PER NURSING PROTOCOL Performed By: #### L 501.080 ####[facility] [address] [place], [address] Beta-Hydroxbytyrateon 2024 BETA-HYDROXYBUT 1.2 mmol/L High 0.0-0.3 [facility] Comment on above: Performed By: #### L 501.6901 ####[facility] [address] [place], [address] CBC-Complete Blood Cnt No Di ffon 03-07-2025 Erythrocyte distribution width (RBC) [Ratio] 13.8 % Normal 11.6-14.6 [facility] Comment on above: Performed By: #### L 100.0500 ####[facility] [address] [place], [address] Hematocrit (Bld) [Volume fraction] 33.3 % Low 37-47 [facility] Comment on above: Performed By: #### L 100.0500 ####[facility] [address] [place], [address] Hemoglobin (Bld) [Mass/Vol] 11.0 g/dL Low 12.0-15.0 [facility] Comment on above: Performed By: #### L 100.0500 ####[facility] [address] [place], [address] MCH (RBC) [Entitic mass] 29.6 pg Normal 27.0-32.0 [facility] Comment on above: Performed By: #### L 100.0500 ####[facility] [address] [place], [address] MCHC (RBC) [Mass/Vol] 33.0 g/dL Normal 32-36 [facility] Comment on above: Performed By: #### L 100.0500 ####[facility] [address] [place], [address] MCV (RBC) [Entitic vol] 89.8 fL Normal 81-99 [facility] Comment on above: Performed By: #### L 100.0500 ####[facility] [address] [place], [address] Platelet mean volume (Bld) [Entitic vol] 11.4 fL Normal 6.2-12.0 [facility] Comment on above: Performed By: #### L 100.0500 ####[facility] [address] [place], [address] Platelets (Bld) [#/Vol] 176 10*3/uL Normal 150-450 [facility] Comment on above: Performed By: #### L 100.0500 ####[facility] [address] [place], [address] RBC (Bld) [#/Vol] 3.71 10*6/uL Low 4.2-5.4 [facility] Comment on above: Performed By: #### L 100.0500 ####[facility] [address] [place], [address] RDW SD 45.2 fl High 35.1-43.9 [facility] Comment on above: Performed By: #### L 100.0500 ####[facility] [address] [place], [address] WBC (Bld) [#/Vol] 15.4 10*3/uL High 4.4-11.0 [facility] Comment on above: Performed By: #### L 100.0500 ####[facility] [address] [place], [address] Basic Metabolic Profile (BMP )on 03-06-2025 BUN/CRE 12.3 RATIO Normal - [facility] Comment on above: Order Comment: Call MD with results STAT Performed By: #### L 500.2500 ####[facility] [address] [place], [address] Calcium [Mass/Vol] 8.3 mg/dL Normal 7.6-11.0 [facility] Comment on above: Order Comment: Call MD with results STAT Performed By: #### L 500.2500 ####[facility] [address] [place], [address] Chloride [Moles/Vol] 107 mmol/L Normal 98-108 [facility] Comment on above: Order Comment: Call MD with results STAT Performed By: #### L 500.2500 ####[facility] [address] [place], [address] CO2 [Moles/Vol] 18.9 mmol/L Low 21.0-32.0 [facility] Comment on above: Order Comment: Call MD with results STAT Performed By: #### L 500.2500 ####[facility] [address] [place], [address] Creatinine [Mass/Vol] 0.68 mg/dL Low 0.70-1.20 [facility] Comment on above: Order Comment: Call MD with results STAT Performed By: #### L 500.2500 ####[facility] [address] [place], [address] ECRCL 126.42 ml/min Normal 50-250 [facility] Comment on above: Order Comment: Call MD with results STAT Performed By: #### L 500.2500 ####[facility] [address] [place], [address] GAP 12 Normal 5-15 [facility] Comment on above: Order Comment: Call MD with results STAT Performed By: #### L 500.2500 ####[facility] [address] [place], [address] GFR/1.73 sq M.predicted among non-blacks MDRD (S/P/Bld) [Vol rate/Area] 120 mL/min/{1.73_m2} Normal >60 [facility] Comment on above: Order Comment: Call MD with results STAT Result Comment: mL/m in/1.73m2 CKD-EPI Creatinine Equation (2020) Performed By: #### L 500.2500 ####[facility] [address] [place], [address] Glucose [Mass/Vol] 199 mg/dL High 70-99 [facility] Comment on above: Order Comment: Call MD with results STAT Performed By: #### L 500.2500 ####[facility] [address] [place], [address] Potassium [Moles/Vol] 3.6 mmol/L Normal 3.3-5.1 [facility] Comment on above: Order Comment: Call MD with results STAT Performed By: #### L 500.2500 ####[facility] [address] [place], [address] Sodium [Moles/Vol] 137 mmol/L Normal 133-145 [facility] Comment on above: Order Comment: Call MD with results STAT Performed By: #### L 500.2500 ####[facility] [address] [place], [address] Urea nitrogen [Mass/Vol] 8 mg/dL Normal 4-19 [facility] Comment on above: Order Comment: Call MD with results STAT Performed By: #### L 500.2500 ####[facility] [address] [place], [address] BUN/CRE 13.8 RATIO Normal 10-20 [facility] Comment on above: Order Comment: Call MD with results STAT Performed By: #### L 500.2500 ####[facility] [address] [place], [address] Calcium [Mass/Vol] 8.3 mg/dL Normal 7.6-11.0 [facility] Comment on above: Order Comment: Call MD with results STAT Performed By: #### L 500.2500 ####[facility] [address] [place], [address] Chloride [Moles/Vol] 105 mmol/L Normal 98-108 [facility] Comment on above: Order Comment: Call MD with results STAT Performed By: #### L 500.2500 ####[facility] [address] [place], [address] CO2 [Moles/Vol] 16.5 mmol/L Low 21.0-32.0 [facility] Comment on above: Order Comment: Call MD with results STAT Performed By: #### L 500.2500 ####[facility] [address] [place], [address] Creatinine [Mass/Vol] 0.70 mg/dL Normal 0.70-1.20 [facility] Comment on above: Order Comment: Call MD with results STAT Performed By: #### L 500.2500 ####[facility] [address] [place], [address] ECRCL 122.81 ml/min Normal 50-250 [facility] Comment on above: Order Comment: Call MD with results STAT Performed By: #### L 500.2500 ####[facility] [address] [place], [address] GAP 15 Normal 5-15 [facility] Comment on above: Order Comment: Call MD with results STAT Performed By: #### L 500.2500 ####[facility] [address] [place], [address] GFR/1.73 sq M.predicted among non-blacks MDRD (S/P/Bld) [Vol rate/Area] 119 mL/min/{1.73_m2} Normal >60 [facility] Comment on above: Order Comment: Call MD with results STAT Result Comment: mL/m in/1.73m2 CKD-EPI Creatinine Equation (2020) Performed By: #### L 500.2500 ####[facility] [address] [place], [address] Glucose [Mass/Vol] 239 mg/dL High 70-99 [facility] Comment on above: Order Comment: Call MD with results STAT Performed By: #### L 500.2500 ####[facility] [address] [place], [address] Potassium [Moles/Vol] 4.0 mmol/L Normal 3.3-5.1 [facility] Comment on above: Order Comment: Call MD with results STAT Performed By: #### L 500.2500 ####[facility] [address] [place], [address] Sodium [Moles/Vol] 136 mmol/L Normal 133-145 [facility] Comment on above: Order Comment: Call MD with results STAT Performed By: #### L 500.2500 ####[facility] [address] [place], [address] Urea nitrogen [Mass/Vol] 10 mg/dL Normal 4-19 [facility] Comment on above: Order Comment: Call MD with results STAT Performed By: #### L 500.2500 ####[facility] [address] [place], [address] BUN/CRE 15.9 RATIO Normal 10-20 [facility] Comment on above: Order Comment: Call MD with results STAT Performed By: #### L 500.2500 ####[facility] [address] [place], [address] Calcium [Mass/Vol] 8.3 mg/dL Normal 7.6-11.0 [facility] Comment on above: Order Comment: Call MD with results STAT Performed By: #### L 500.2500 ####[facility] [address] [place], [address] Chloride [Moles/Vol] 105 mmol/L Normal 98-108 [facility] Comment on above: Order Comment: Call MD with results STAT Performed By: #### L 500.2500 ####[facility] [address] [place], [address] CO2 [Moles/Vol] 13.0 mmol/L Low 21.0-32.0 [facility] Comment on above: Order Comment: Call MD with results STAT Performed By: #### L 500.2500 ####[facility] [address] [place], [address] Creatinine [Mass/Vol] 0.71 mg/dL Normal 0.70-1.20 [facility] Comment on above: Order Comment: Call MD with results STAT Performed By: #### L 500.2500 ####[facility] [address] [place], [address] ECRCL 121.08 ml/min Normal 50-250 [facility] Comment on above: Order Comment: Call MD with results STAT Performed By: #### L 500.2500 ####[facility] [address] [place], [address] GAP 18 High 5-15 [facility] Comment on above: Order Comment: Call MD with results STAT Performed By: #### L 500.2500 ####[facility] [address] [place], [address] GFR/1.73 sq M.predicted among non-blacks MDRD (S/P/Bld) [Vol rate/Area] 117 mL/min/{1.73_m2} Normal >60 [facility] Comment on above: Order Comment: Call MD with results STAT Result Comment: mL/m in/1.73m2 CKD-EPI Creatinine Equation (2020) Performed By: #### L 500.2500 ####[facility] [address] [place], [address] Glucose [Mass/Vol] 220 mg/dL High 70-99 [facility] Comment on above: Order Comment: Call MD with results STAT Performed By: #### L 500.2500 ####[facility] [address] [place], [address] Potassium [Moles/Vol] 4.3 mmol/L Normal 3.3-5.1 [facility] Comment on above: Order Comment: Call MD with results STAT Result Comment: Hemo lysis present, Results??could be affected.?? Performed By: #### L 500.2500 ####[facility] [address] [place], [address] Sodium [Moles/Vol] 136 mmol/L Normal 133-145 [facility] Comment on above: Order Comment: Call MD with results STAT Performed By: #### L 500.2500 ####[facility] [address] [place], [address] Urea nitrogen [Mass/Vol] 11 mg/dL Normal 4-19 [facility] Comment on above: Order Comment: Call MD with results STAT Performed By: #### L 500.2500 ####[facility] [address] [place], [address] BUN/CRE 17.5 RATIO Normal 10-20 [facility] Comment on above: Order Comment: Call MD with results STAT Performed By: #### L 500.2500 ####[facility] [address] [place], [address] Calcium [Mass/Vol] 8.8 mg/dL Normal 7.6-11.0 [facility] Comment on above: Order Comment: Call MD with results STAT Performed By: #### L 500.2500 ####[facility] [address] [place], [address] Chloride [Moles/Vol] 102 mmol/L Normal 98-108 [facility] Comment on above: Order Comment: Call MD with results STAT Performed By: #### L 500.2500 ####[facility] [address] [place], [address] CO2 [Moles/Vol] 11.6 mmol/L Low 21.0-32.0 [facility] Comment on above: Order Comment: Call MD with results STAT Performed By: #### L 500.2500 ####[facility] [address] [place], [address] Creatinine [Mass/Vol] 0.85 mg/dL Normal 0.70-1.20 [facility] Comment on above: Order Comment: Call MD with results STAT Performed By: #### L 500.2500 ####[facility] [address] [place], [address] ECRCL 101.14 ml/min Normal 50-250 [facility] Comment on above: Order Comment: Call MD with results STAT Performed By: #### L 500.2500 ####[facility] [address] [place], [address] GAP 22 High 5-15 [facility] Comment on above: Order Comment: Call MD with results STAT Performed By: #### L 500.2500 ####[facility] [address] [place], [address] GFR/1.73 sq M.predicted among non-blacks MDRD (S/P/Bld) [Vol rate/Area] 94 mL/min/{1.73_m2} Normal >60 [facility] Comment on above: Order Comment: Call MD with results STAT Result Comment: mL/m in/1.73m2 CKD-EPI Creatinine Equation (2020) Performed By: #### L 500.2500 ####[facility] [address] [place], [address] Glucose [Mass/Vol] 317 mg/dL High 70-99 [facility] Comment on above: Order Comment: Call MD with results STAT Performed By: #### L 500.2500 ####[facility] [address] [place], [address] Potassium [Moles/Vol] 4.6 mmol/L Normal 3.3-5.1 [facility] Comment on above: Order Comment: Call MD with results STAT Result Comment: Hemo lysis present, Results??could be affected.?? Performed By: #### L 500.2500 ####[facility] [address] [place], [address] Sodium [Moles/Vol] 136 mmol/L Normal 133-145 [facility] Comment on above: Order Comment: Call MD with results STAT Performed By: #### L 500.2500 ####[facility] [address] [place], [address] Urea nitrogen [Mass/Vol] 15 mg/dL Normal 4-19 [facility] Comment on above: Order Comment: Call MD with results STAT Performed By: #### L 500.2500 ####[facility] [address] [place], [address] BUN/CRE 18.2 RATIO Normal 10-20 [facility] Comment on above: Performed By: #### L 500.3400, L100.0100, L501.7300, L501.2450, L500.2500 ####[facility] [address] [place], [address] Calcium [Mass/Vol] 9.3 mg/dL Normal 7.6-11.0 [facility] Comment on above: Performed By: #### L 500.3400, L100.0100, L501.7300, L501.2450, L500.2500 ####[facility] [address] [place], [address] Chloride [Moles/Vol] 95 mmol/L Low 98-108 [facility] Comment on above: Performed By: #### L 500.3400, L100.0100, L501.7300, L501.2450, L500.2500 ####[facility] [address] [place], [address] CO2 [Moles/Vol] 11.4 mmol/L Low 21.0-32.0 [facility] Comment on above: Performed By: #### L 500.3400, L100.0100, L501.7300, L501.2450, L500.2500 ####[facility] [address] [place], [address] Creatinine [Mass/Vol] 0.87 mg/dL Normal 0.70-1.20 [facility] Comment on above: Performed By: #### L 500.3400, L100.0100, L501.7300, L501.2450, L500.2500 ####[facility] [address] [place], [address] ECRCL 98.81 ml/min Normal 50-250 [facility] Comment on above: Performed By: #### L 500.3400, L100.0100, L501.7300, L501.2450, L500.2500 ####[facility] [address] [place], [address] GAP 27 High 5-15 [facility] Comment on above: Performed By: #### L 500.3400, L100.0100, L501.7300, L501.2450, L500.2500 ####[facility] [address] [place], [address] GFR/1.73 sq M.predicted among non-blacks MDRD (S/P/Bld) [Vol rate/Area] 91 mL/min/{1.73_m2} Normal >60 [facility] Comment on above: Result Comment: mL/m in/1.73m2 CKD-EPI Creatinine Equation (2020) Performed By: #### L 500.3400, L100.0100, L501.7300, L501.2450, L500.2500 ####[facility] [address] [place], [address] Glucose [Mass/Vol] 547 mg/dL Invalid Interpretation Code 70-99 [facility] Comment on above: Result Comment: Crit ical Result(s) Called at 0240: by: SUZANNE AGUILERA??Results read back by same. Performed By: #### L 500.3400, L100.0100, L501.7300, L501.2450, L500.2500 ####[facility] [address] [place], [address] Potassium [Moles/Vol] 4.4 mmol/L Normal 3.3-5.1 [facility] Comment on above: Performed By: #### L 500.3400, L100.0100, L501.7300, L501.2450, L500.2500 ####[facility] [address] [place], [address] Sodium [Moles/Vol] 133 mmol/L Normal 133-145 [facility] Comment on above: Performed By: #### L 500.3400, L100.0100, L501.7300, L501.2450, L500.2500 ####[facility] [address] [place], [address] Urea nitrogen [Mass/Vol] 16 mg/dL Normal 4-19 [facility] Comment on above: Performed By: #### L 500.3400, L100.0100, L501.7300, L501.2450, L500.2500 ####[facility] [address] [place], [address] Bedside Glucoseon 03-06-2025 FINGERSTICK GLU 127 mg/dL High 74-106 [facility] Comment on above: Result Comment: EDGAR GEMENT OF PATIENT CARE PER NURSING PROTOCOL Performed By: #### L 501.080 ####[facility] [address] [place], [address] FINGERSTICK GLU 160 mg/dL High 74-106 [facility] Comment on above: Result Comment: EDGAR GEMENT OF PATIENT CARE PER NURSING PROTOCOL Performed By: #### L 501.080 ####[facility] [address] [place], [address] FINGERSTICK GLU 127 mg/dL High 74-106 [facility] Comment on above: Result Comment: EDGAR GEMENT OF PATIENT CARE PER NURSING PROTOCOL Performed By: #### L 501.080 ####[facility] [address] [place], [address] FINGERSTICK GLU 196 mg/dL High 74-106 [facility] Comment on above: Result Comment: EDGAR GEMENT OF PATIENT CARE PER NURSING PROTOCOL Performed By: #### L 501.080 ####[facility] [address] [place], [address] FINGERSTICK GLU 203 mg/dL High 74-106 [facility] Comment on above: Result Comment: Dr Ej foreman FollowedMANAGEMENT OF PATIENT CARE PER NURSING PROTOCOL Performed By: #### L 501.080 ####[facility] [address] [place], [address] FINGERSTICK GLU 231 mg/dL High 74-106 [facility] Comment on above: Result Comment: Dr Ej foreman FollowedMANAGEMENT OF PATIENT CARE PER NURSING PROTOCOL Performed By: #### L 501.080 ####[facility] [address] [place], [address] FINGERSTICK GLU 222 mg/dL High [address] [place] [address] Comment on above: Result Comment: EDGAR GEMENT OF PATIENT CARE PER NURSING PROTOCOL Performed By: #### L 501.080 ####[facility] [address] [place], [address] FINGERSTICK GLU 214 mg/dL High [address] [place] [address] Comment on above: Result Comment: EDGAR GEMENT OF PATIENT CARE PER NURSING PROTOCOL Performed By: #### L 501.080 ####[facility] [address] [place], [address] FINGERSTICK GLU 214 mg/dL High [address] [place] [address] Comment on above: Result Comment: EDGAR GEMENT OF PATIENT CARE PER NURSING PROTOCOL Performed By: #### L 501.080 ####[facility] [address] [place], [address] FINGERSTICK GLU 241 mg/dL High [address] [place] [address] Comment on above: Result Comment: EDGAR GEMENT OF PATIENT CARE PER NURSING PROTOCOL Performed By: #### L 501.080 ####[facility] [address] [place], [address] FINGERSTICK GLU 247 mg/dL High [address] [place] [address] Comment on above: Result Comment: Dr Ej foreman FollowedMANAGEMENT OF PATIENT CARE PER NURSING PROTOCOL Performed By: #### L 501.080 ####[facility] [address] [place], [address] FINGERSTICK GLU 217 mg/dL High [address] [place] [address] Comment on above: Result Comment: EDGAR GEMENT OF PATIENT CARE PER NURSING PROTOCOL Performed By: #### L 501.080 ####[facility] [address] [place], [address] FINGERSTICK GLU 253 mg/dL High [address] [place] [address] Comment on above: Result Comment: EDGAR GEMENT OF PATIENT CARE PER NURSING PROTOCOL Performed By: #### L 501.080 ####[facility] [address] [place], [address] FINGERSTICK GLU 313 mg/dL High -[address] [place] [address] Comment on above: Result Comment: EDGAR GEMENT OF PATIENT CARE PER NURSING PROTOCOL Performed By: #### L 501.080 ####[facility] [address] [place], [address] FINGERSTICK GLU 352 mg/dL High [address] [place] [address] Comment on above: Result Comment: EDGAR GEMENT OF PATIENT CARE PER NURSING PROTOCOL Performed By: #### L 501.080 ####[facility] [address] [place], [address] FINGERSTICK GLU 480 mg/dL Invalid Interpretation Code -[address] [place] [address] Comment on above: Result Comment: EDGAR GEMENT OF PATIENT CARE PER NURSING PROTOCOL Performed By: #### L 501.080 ####[facility] [address] [place], [address] Beta-Hydroxbytyrateon 2024 BETA-HYDROXYBUT 1.7 mmol/L High 0.0-0.3 [facility] Comment on above: Performed By: #### L 501.6901 ####[facility] [address] [place], [address] BETA-HYDROXYBUT 4.2 mmol/L High 0.0-0.3 [facility] Comment on above: Order Comment: FOR N IGHLTY MAINTENANCE, MOVED TO DIFFERENT REQ FOR THATREASON Performed By: #### L 501.6901 ####[facility] [address] [place], [address] CBC W/Diff, Automatedon 07- PLT MORPH CLUMPED Normal [facility] Comment on above: Performed By: #### L 100.0100 ####[facility] [address] [place], [address] RED CELL MORPH NORM C+C Normal NORM C C [facility] Comment on above: Performed By: #### L 100.0100 ####[facility] [address] [place], [address] PLT EST ADEQUATE Normal ADEQ [facility] Comment on above: Performed By: #### L 100.0100 ####[facility] [address] [place], [address] SMEAR COMMENT SCANNED Normal [facility] Comment on above: Performed By: #### L 100.0100 ####[facility] [address] [place], [address] Absolute Neut Normal 2.0-7.7 [facility] Comment on above: Result Comment: This specimen has been REJECTED due to Laboratory criteria:Clotted.GENO has been notified of need of recollection.03/06/25143 [place] Performed By: #### L 500.3400, L100.0100, L501.7300, L501.2450, L500.2500 ####[facility] [address] [place], [address] HCT Normal 37-47 [facility] Comment on above: Result Comment: This specimen has been REJECTED due to Laboratory criteria:Clotted.GENO has been notified of need of recollection.03/06/25143 [place] Performed By: #### L 500.3400, L100.0100, L501.7300, L501.2450, L500.2500 ####[facility] [address] [place], [address] HGB Normal 12.0-15.0 [facility] Comment on above: Result Comment: This specimen has been REJECTED due to Laboratory criteria:Clotted.GENO has been notified of need of recollection.03/06/25143 [place] Performed By: #### L 500.3400, L100.0100, L501.7300, L501.2450, L500.2500 ####[facility] [address] [place], [address] MCH Normal 27.0-32.0 [facility] Comment on above: Result Comment: This specimen has been REJECTED due to Laboratory criteria:Clotted.GENO has been notified of need of recollection.03/06/25143 [place] Performed By: #### L 500.3400, L100.0100, L501.7300, L501.2450, L500.2500 ####[facility] [address] [place], [address] MCHC Normal 32-36 [facility] Comment on above: Result Comment: This specimen has been REJECTED due to Laboratory criteria:Clotted.GENO has been notified of need of recollection.03/06/25143 [place] Performed By: #### L 500.3400, L100.0100, L501.7300, L501.2450, L500.2500 ####[facility] [address] [place], [address] MCV Normal 81-99 [facility] Comment on above: Result Comment: This specimen has been REJECTED due to Laboratory criteria:Clotted.GENO has been notified of need of recollection.03/06/25143 [place] Performed By: #### L 500.3400, L100.0100, L501.7300, L501.2450, L500.2500 ####[facility] [address] [place], [address] NEUT% Normal 47-70 [facility] Comment on above: Result Comment: This specimen has been REJECTED due to Laboratory criteria:Clotted.GENO has been notified of need of recollection.03/06/25143 [place] Performed By: #### L 500.3400, L100.0100, L501.7300, L501.2450, L500.2500 ####[facility] [address] [place], [address] PLT Normal 150-450 [facility] Comment on above: Result Comment: This specimen has been REJECTED due to Laboratory criteria:Clotted.GENO has been notified of need of recollection.03/06/25143 [place] Performed By: #### L 500.3400, L100.0100, L501.7300, L501.2450, L500.2500 ####[facility] [address] [place], [address] RBC Normal 4.2-5.4 [facility] Comment on above: Result Comment: This specimen has been REJECTED due to Laboratory criteria:Clotted.GENO has been notified of need of recollection.03/06/25143 [place] Performed By: #### L 500.3400, L100.0100, L501.7300, L501.2450, L500.2500 ####[facility] [address] [place], [address] RDW CV Normal 11.6-14.6 [facility] Comment on above: Result Comment: This specimen has been REJECTED due to Laboratory criteria:Clotted.GENO has been notified of need of recollection.03/06/25143 [place] Performed By: #### L 500.3400, L100.0100, L501.7300, L501.2450, L500.2500 ####[facility] [address] [place], [address] RDW SD Normal 35.1-43.9 [facility] Comment on above: Result Comment: This specimen has been REJECTED due to Laboratory criteria:Clotted.GENO has been notified of need of recollection.03/06/25143 [place] Performed By: #### L 500.3400, L100.0100, L501.7300, L501.2450, L500.2500 ####[facility] [address] [place], [address] WBC Normal 4.4-11.0 [facility] Comment on above: Result Comment: This specimen has been REJECTED due to Laboratory criteria:Clotted.GENO has been notified of need of recollection.03/06/25143 [place] Performed By: #### L 500.3400, L100.0100, L501.7300, L501.2450, L500.2500 ####[facility] [address] [place], [address] Chest PA and Lateralon 03-06 Chest PA and Lateral Normal [facility] Emergency Department Summary on 03-06-2025 Emergency Department Summary Normal [facility] H AND P Exam - Hospital[facility] 03-06-2025 H&P Exam - Hospitalist Normal [facility] Lipaseon 03-06-2025 Lipase [Catalytic activity/Vol] 21 U/L Normal 13-75 [facility] Comment on above: Result Comment: Sulma schmitz note:LIPASE revised reference range effective 22.New Lipase methodology. Expected to produce lower valuesthan the previous assay method.NEW Reference Range: 13 - 75 U/L Performed By: #### L 500.3400, L100.0100, L501.7300, L501.2450, L500.2500 ####[facility] [address] [place], [address] Liver Profileon 03-06-2025 Albumin [Mass/Vol] 4.4 g/dL Normal 3.5-5.0 [facility] Comment on above: Performed By: #### L 500.3400, L100.0100, L501.7300, L501.2450, L500.2500 ####[facility] [address] [place], [address] ALK PHOS 85 U/L Normal 35-104 [facility] Comment on above: Performed By: #### L 500.3400, L100.0100, L501.7300, L501.2450, L500.2500 ####[facility] [address] [place], [address] ALT [Catalytic activity/Vol] 11 U/L Normal <=34 [facility] Comment on above: Performed By: #### L 500.3400, L100.0100, L501.7300, L501.2450, L500.2500 ####[facility] [address] [place], [address] AST [Catalytic activity/Vol] 17 U/L Normal <=31 [facility] Comment on above: Performed By: #### L 500.3400, L100.0100, L501.7300, L501.2450, L500.2500 ####[facility] [address] [place], [address] Bilirubin [Mass/Vol] 0.79 mg/dL Normal 0.00-1.30 [facility] Comment on above: Performed By: #### L 500.3400, L100.0100, L501.7300, L501.2450, L500.2500 ####[facility] [address] [place], [address] Bilirubin.direct [Mass/Vol] 0.35 mg/dL High 0.00-0.30 [facility] Comment on above: Performed By: #### L 500.3400, L100.0100, L501.7300, L501.2450, L500.2500 ####[facility] [address] [place], [address] Globulin (S) [Mass/Vol] 2.5 g/dL Normal 2.2-4.2 [facility] Comment on above: Performed By: #### L 500.3400, L100.0100, L501.7300, L501.2450, L500.2500 ####[facility] [address] [place], [address] T PROT 6.9 g/dL Normal 5.9-8.4 [facility] Comment on above: Performed By: #### L 500.3400, L100.0100, L501.7300, L501.2450, L500.2500 ####[facility] [address] [place], [address] Osmolality, Serumon 03-06-20 25 OSMOLALITY,SER 325 mOsm/KG High 275-295 [facility] Comment on above: Performed By: #### L 500.3400, L100.0100, L501.7300, L501.2450, L500.2500 ####[facility] [address] [place], [address] Venous Blood Gason 5 VBG pCO2 8.2 mmHg Invalid Interpretation Code 41-51 [facility] Comment on above: Performed By: #### L 9000.0810 ####[facility] [address] [place], [address] Bedside Glucoseon 03-05-2025 FINGERSTICK GLU 91 mg/dL Normal 74-106 [facility] Comment on above: Result Comment: EDGAR HUNG OF PATIENT CARE PER NURSING PROTOCOL Performed By: #### L 501.080 ####[facility] [address] [place], [address] Colonoscopy Reporton 025 Colonoscopy Report Normal [facility] EGD Reporton 03-05-2025 EGD Report Normal [facility] Immunohistochemical Stainson 03-05-2025 Immunohistochemical Stains Normal [facility] Comment on above: Performed By: #### P IMHI ####[facility] [address] [place], [address] MR/POSTOP.ANEon 03-05-2025 MR/POSTOP.ANE Normal [facility] MR/NBJSQUMP0qv 03-05-2025 MR/POSTOPAN2 Normal [facility] MR/PAT.ANEon 03-04-2025 MR/PAT.ANE Normal [facility] CBC W/Diff, Automatedon 07-0 Absolute Lymph 2.23 X10 3/uL Normal 0.83-4.51 [facility] Comment on above: Performed By: #### L 100.0100, L501.5200, L500.4050 ####[facility] [address] [place], [address] Absolute Neut 9.6 X10 3/uL High 2.0-7.7 [facility] Comment on above: Performed By: #### L 100.0100, L501.5200, L500.4050 ####[facility] [address] [place], [address] Basophils/100 WBC (Bld) 0.4 % Normal 0-1 [facility] Comment on above: Performed By: #### L 100.0100, L501.5200, L500.4050 ####[facility] [address] [place], [address] Eosinophils/100 WBC (Bld) 2.7 % Normal 0-5 [facility] Comment on above: Performed By: #### L 100.0100, L501.5200, L500.4050 ####[facility] [address] [place], [address] Erythrocyte distribution width (RBC) [Ratio] 13.7 % Normal 11.6-14.6 [facility] Comment on above: Performed By: #### L 100.0100, L501.5200, L500.4050 ####[facility] [address] [place], [address] Hematocrit (Bld) [Volume fraction] 43.5 % Normal 37-47 [facility] Comment on above: Performed By: #### L 100.0100, L501.5200, L500.4050 ####[facility] [address] [place], [address] Hemoglobin (Bld) [Mass/Vol] 14.2 g/dL Normal 12.0-15.0 [facility] Comment on above: Performed By: #### L 100.0100, L501.5200, L500.4050 ####[facility] [address] [place], [address] IG% 1.800 High 0.0-0.9 [facility] Comment on above: Result Comment: IG% - Immature Granulocytes (promyelocytes, myelocytes andmetamyelocytes) > 1% indicates that a LEFT SHIFT is Present. Performed By: #### L 100.0100, L501.5200, L500.4050 ####[facility] [address] [place], [address] Lymphocytes/100 WBC (Bld) 17.1 % Low 19-41 [facility] Comment on above: Performed By: #### L 100.0100, L501.5200, L500.4050 ####[facility] [address] [place], [address] MCH (RBC) [Entitic mass] 29.3 pg Normal 27.0-32.0 [facility] Comment on above: Performed By: #### L 100.0100, L501.5200, L500.4050 ####[facility] [address] [place], [address] MCHC (RBC) [Mass/Vol] 32.6 g/dL Normal 32-36 [facility] Comment on above: Performed By: #### L 100.0100, L501.5200, L500.4050 ####[facility] [address] [place], [address] MCV (RBC) [Entitic vol] 89.9 fL Normal 81-99 [facility] Comment on above: Performed By: #### L 100.0100, L501.5200, L500.4050 ####[facility] [address] [place], [address] Monocytes/100 WBC (Bld) 4.6 % Normal 0-10 [facility] Comment on above: Performed By: #### L 100.0100, L501.5200, L500.4050 ####[facility] [address] [place], [address] Neutrophils/100 WBC (Bld) 73.4 % High 47-70 [facility] Comment on above: Performed By: #### L 100.0100, L501.5200, L500.4050 ####[facility] [address] [place], [address] Nucleated RBC (Bld) [#/Vol] 0 10*3/uL Normal 0-5 [facility] Comment on above: Performed By: #### L 100.0100, L501.5200, L500.4050 ####[facility] [address] [place], [address] Platelet mean volume (Bld) [Entitic vol] 12.2 fL High 6.2-12.0 [facility] Comment on above: Performed By: #### L 100.0100, L501.5200, L500.4050 ####[facility] [address] [place], [address] Platelets (Bld) [#/Vol] 201 10*3/uL Normal 150-450 [facility] Comment on above: Performed By: #### L 100.0100, L501.5200, L500.4050 ####[facility] [address] [place], [address] RBC (Bld) [#/Vol] 4.84 10*6/uL Normal 4.2-5.4 [facility] Comment on above: Performed By: #### L 100.0100, L501.5200, L500.4050 ####[facility] [address] [place], [address] RDW SD 44.5 fl High 35.1-43.9 [facility] Comment on above: Performed By: #### L 100.0100, L501.5200, L500.4050 ####[facility] [address] [place], [address] WBC (Bld) [#/Vol] 13.1 10*3/uL High 4.4-11.0 [facility] Comment on above: Performed By: #### L 100.0100, L501.5200, L500.4050 ####[facility] [address] [place], [address] Comprehensive Metabolic Prof mion 02-25-2025 Albumin [Mass/Vol] 4.2 g/dL Normal 3.5-5.0 [facility] Comment on above: Performed By: #### L 100.0100, L501.5200, L500.4050 ####[facility] [address] [place], [address] Albumin/Globulin [Mass ratio] 1.6 {ratio} Normal 0.9-2.4 [facility] Comment on above: Performed By: #### L 100.0100, L501.5200, L500.4050 ####[facility] [address] [place], [address] ALK PHOS 77 U/L Normal 35-104 [facility] Comment on above: Performed By: #### L 100.0100, L501.5200, L500.4050 ####[facility] [address] [facility] [place], [address] ALT [Catalytic activity/Vol] 7 U/L Normal <=34 [facility] Comment on above: Performed By: #### L 100.0100, L501.5200, L500.4050 ####[facility] [address] [place], [address] AST [Catalytic activity/Vol] 15 U/L Normal <=31 [facility] Comment on above: Performed By: #### L 100.0100, L501.5200, L500.4050 ####[facility] [address] [place], [address] Bilirubin [Mass/Vol] 0.71 mg/dL Normal 0.00-1.30 [facility] Comment on above: Performed By: #### L 100.0100, L501.5200, L500.4050 ####[facility] [address] [place], [address] BUN/CRE 18.7 RATIO Normal 10-20 [facility] Comment on above: Performed By: #### L 100.0100, L501.5200, L500.4050 ####[facility] [address] [place], [address] Calcium [Mass/Vol] 9.2 mg/dL Normal 7.6-11.0 [facility] Comment on above: Performed By: #### L 100.0100, L501.5200, L500.4050 ####[facility] [address] [place], [address] Chloride [Moles/Vol] 104 mmol/L Normal 98-108 [facility] Comment on above: Performed By: #### L 100.0100, L501.5200, L500.4050 ####[facility] [address] [place], [address] CO2 [Moles/Vol] 20.2 mmol/L Low 21.0-32.0 [facility] Comment on above: Performed By: #### L 100.0100, L501.5200, L500.4050 ####[facility] [address] [place], [address] Creatinine [Mass/Vol] 0.63 mg/dL Low 0.70-1.20 [facility] Comment on above: Performed By: #### L 100.0100, L501.5200, L500.4050 ####[facility] [address] [place], [address] GAP 14 Normal 5-15 [facility] Comment on above: Performed By: #### L 100.0100, L501.5200, L500.4050 ####[facility] [address] [place], [address] GFR/1.73 sq M.predicted among non-blacks MDRD (S/P/Bld) [Vol rate/Area] 122 mL/min/{1.73_m2} Normal >60 [facility] Comment on above: Result Comment: mL/m in/1.73m2 CKD-EPI Creatinine Equation (2020) Performed By: #### L 100.0100, L501.5200, L500.4050 ####[facility] [address] [place], [address] Globulin (S) [Mass/Vol] 2.6 g/dL Normal 2.2-4.2 [facility] Comment on above: Performed By: #### L 100.0100, L501.5200, L500.4050 ####[facility] [address] [place], [address] Glucose [Mass/Vol] 153 mg/dL High 70-99 [facility] Comment on above: Performed By: #### L 100.0100, L501.5200, L500.4050 ####[facility] [address] [place], [address] Potassium [Moles/Vol] 3.9 mmol/L Normal 3.3-5.1 [facility] Comment on above: Performed By: #### L 100.0100, L501.5200, L500.4050 ####[facility] [address] [place], [address] Sodium [Moles/Vol] 138 mmol/L Normal 133-145 [facility] Comment on above: Performed By: #### L 100.0100, L501.5200, L500.4050 ####[facility] [address] [place], [address] T PROT 6.7 g/dL Normal 5.9-8.4 [facility] Comment on above: Performed By: #### L 100.0100, L501.5200, L500.4050 ####[facility] [address] [place], [address] Urea nitrogen [Mass/Vol] 12 mg/dL Normal - [facility] Comment on above: Performed By: #### L 100.0100, L501.5200, L500.4050 ####[facility] [address] [place], [address] Magnesiumon 02-25-2025 Magnesium [Mass/Vol] 2.2 mg/dL Normal 1.5-2.2 [facility] Comment on above: Performed By: #### L 100.0100, L501.5200, L500.4050 ####[facility] [address] [place], [address] Discharge Instructionon - Discharge Instruction Normal [facility] Basic Metabolic Profile (BMP )on 02-20-2025 BUN Normal 12-14 [facility] Comment on above: Result Comment: Canc elled via OM: Order cancelled - Patient discharged Performed By: #### L 500.2500, L100.0500 ####[facility] [address] [place], [address] BUN/CRE Normal 10-20 [facility] Comment on above: Result Comment: Canc elled via OM: Order cancelled - Patient discharged Performed By: #### L 500.2500, L100.0500 ####[facility] [address] [place], [address] Calcium Normal 7.6-11.0 [facility] Comment on above: Result Comment: Canc elled via OM: Order cancelled - Patient discharged Performed By: #### L 500.2500, L100.0500 ####[facility] [address] [place], [address] CL Normal 98-108 [facility] Comment on above: Result Comment: Canc elled via OM: Order cancelled - Patient discharged Performed By: #### L 500.2500, L100.0500 ####[facility] [address] [place], [address] CO2 Normal 21.0-32.0 [facility] Comment on above: Result Comment: Canc elled via OM: Order cancelled - Patient discharged Performed By: #### L 500.2500, L100.0500 ####[facility] [address] [place], [address] CREAT,SERUM Normal 0.70-1.20 [facility] Comment on above: Result Comment: Canc elled via OM: Order cancelled - Patient discharged Performed By: #### L 500.2500, L100.0500 ####[facility] [address] [place], [address] eGFR Normal >60 [facility] Comment on above: Result Comment: Canc elled via OM: Order cancelled - Patient discharged Performed By: #### L 500.2500, L100.0500 ####[facility] [address] [place], [address] GAP Normal 5-15 [facility] Comment on above: Result Comment: Canc elled via OM: Order cancelled - Patient discharged Performed By: #### L 500.2500, L100.0500 ####[facility] [address] [place], [address] GLU Normal 70-99 [facility] Comment on above: Result Comment: Canc elled via OM: Order cancelled - Patient discharged Performed By: #### L 500.2500, L100.0500 ####[facility] [address] [place], [address] Potassium Normal 3.3-5.1 [facility] Comment on above: Result Comment: Canc elled via OM: Order cancelled - Patient discharged Performed By: #### L 500.2500, L100.0500 ####[facility] [address] [place], [address] Basic Metabolic Profile (BMP) Normal 133-145 [facility] Comment on above: Result Comment: Canc elled via OM: Order cancelled - Patient discharged Performed By: #### L 500.2500, L100.0500 ####[facility] [address] [place], [address] Bedside Glucoseon 02-20-2025 FINGERSTICK GLU 143 mg/dL High 74-106 [facility] Comment on above: Result Comment: EDGAR HUNG OF PATIENT CARE PER NURSING PROTOCOL Performed By: #### L 501.080 ####[facility] [address] [place], [address] CBC-Complete Blood Cnt No Di ffon 02-20-2025 HCT Normal 37-47 [facility] Comment on above: Result Comment: Canc elled via OM: Order cancelled - Patient discharged Performed By: #### L 500.2500, L100.0500 ####[facility] [address] [place], [address] HGB Normal 12.0-15.0 [facility] Comment on above: Result Comment: Canc elled via OM: Order cancelled - Patient discharged Performed By: #### L 500.2500, L100.0500 ####[facility] [address] [place], [address] MCH Normal 27.0-32.0 [facility] Comment on above: Result Comment: Canc elled via OM: Order cancelled - Patient discharged Performed By: #### L 500.2500, L100.0500 ####[facility] [address] [place], [address] MCHC Normal 32-36 [facility] Comment on above: Result Comment: Canc elled via OM: Order cancelled - Patient discharged Performed By: #### L 500.2500, L100.0500 ####[facility] [address] [place], [address] MCV Normal 81-99 [facility] Comment on above: Result Comment: Canc elled via OM: Order cancelled - Patient discharged Performed By: #### L 500.2500, L100.0500 ####[facility] [address] [place], [address] PLT Normal 150-450 [facility] Comment on above: Result Comment: Canc elled via OM: Order cancelled - Patient discharged Performed By: #### L 500.2500, L100.0500 ####[facility] [address] [place], [address] RBC Normal 4.2-5.4 [facility] Comment on above: Result Comment: Canc elled via OM: Order cancelled - Patient discharged Performed By: #### L 500.2500, L100.0500 ####[facility] [address] [place], [address] RDW CV Normal 11.6-14.6 [facility] Comment on above: Result Comment: Canc elled via OM: Order cancelled - Patient discharged Performed By: #### L 500.2500, L100.0500 ####[facility] [address] [place], [address] RDW SD Normal 35.1-43.9 [facility] Comment on above: Result Comment: Canc elled via OM: Order cancelled - Patient discharged Performed By: #### L 500.2500, L100.0500 ####[facility] [address] [place], [address] WBC Normal 4.4-11.0 [facility] Comment on above: Result Comment: Canc elled via OM: Order cancelled - Patient discharged Performed By: #### L 500.2500, L100.0500 ####[facility] [address] [place], [address] Basic Metabolic Profile (BMP )on 02-19-2025 BUN Normal 4-19 [facility] Comment on above: Result Comment: Canc elled via OM: insulin off Performed By: #### L 500.2500 ####[facility] [address] [place], [address] Order Comment: Call MD with results STAT Result Comment: Canc elled via OM: MD Ordered Result Comment: OM C ANCEL REQUEST BUN/CRE Normal 10-20 [facility] Comment on above: Result Comment: Canc elled via OM: insulin off Performed By: #### L 500.2500 ####[facility] [address] [place], [address] Order Comment: Call MD with results STAT Result Comment: Canc elled via OM: MD Ordered Result Comment: OM C ANCEL REQUEST Calcium Normal 7.6-11.0 [facility] Comment on above: Result Comment: Canc elled via OM: insulin off Performed By: #### L 500.2500 ####[facility] [address] [place], [place], [address] Order Comment: Call MD with results STAT Result Comment: Canc elled via OM: MD Ordered Result Comment: OM C ANCEL REQUEST CL Normal 98-108 [facility] Comment on above: Result Comment: Canc elled via OM: insulin off Performed By: #### L 500.2500 ####[facility] [address] [place], [place], [address] Order Comment: Call MD with results STAT Result Comment: Canc elled via OM: MD Ordered Result Comment: OM C ANCEL REQUEST CO2 Normal 21.0-32.0 [facility] Comment on above: Result Comment: Canc elled via OM: insulin off Performed By: #### L 500.2500 ####[facility] [address] [place], [address] Order Comment: Call MD with results STAT Result Comment: Canc elled via OM: MD Ordered Result Comment: OM C ANCEL REQUEST CREAT,SERUM Normal 0.70-1.20 [facility] Comment on above: Result Comment: Canc elled via OM: insulin off Performed By: #### L 500.2500 ####[facility] [address] [place], [address] Order Comment: Call with results STAT Result Comment: Canc elled via OM: MD Ordered Result Comment: OM C ANCEL REQUEST eGFR Normal >60 [facility] Comment on above: Result Comment: Canc elled via OM: insulin off Performed By: #### L 500.2500 ####[facility] [address] [place], [address] Order Comment: Call with results STAT Result Comment: Canc elled via OM: MD Ordered Result Comment: OM C ANCEL REQUEST GAP Normal 5-15 [facility] Comment on above: Result Comment: Canc elled via OM: insulin off Performed By: #### L 500.2500 ####[facility] [address] [place], [address] Order Comment: Call MD with results STAT Result Comment: Canc elled via OM: MD Ordered Result Comment: OM C ANCEL REQUEST GLU Normal 70-99 [facility] Comment on above: Result Comment: Canc elled via OM: insulin off Performed By: #### L 500.2500 ####[facility] [address] [place], [place], [address] Order Comment: Call MD with results STAT Result Comment: Canc elled via OM: MD Ordered Result Comment: OM C ANCEL REQUEST Potassium Normal 3.3-5.1 [facility] Comment on above: Result Comment: Canc elled via OM: insulin off Performed By: #### L 500.2500 ####[facility] [address] [place], [address] Order Comment: Call MD with results STAT Result Comment: Canc elled via OM: MD Ordered Result Comment: OM C ANCEL REQUEST Basic Metabolic Profile (BMP) Normal 133-145 [facility] Comment on above: Result Comment: Canc elled via OM: insulin off Performed By: #### L 500.2500 ####[facility] [address] [place], [address] Order Comment: Call MD with results STAT Result Comment: Canc elled via OM: MD Ordered Result Comment: OM C ANCEL REQUEST BUN/CRE 8.8 RATIO Low 10-20 [facility] Comment on above: Performed By: #### L 500.2500 ####[facility] [address] [place], [address] Calcium [Mass/Vol] 8.5 mg/dL Normal 7.6-11.0 [facility] Comment on above: Performed By: #### L 500.2500 ####[facility] [address] [place], [address] Chloride [Moles/Vol] 107 mmol/L Normal 98-108 [facility] Comment on above: Performed By: #### L 500.2500 ####[facility] [address] [place], [address] CO2 [Moles/Vol] 18.6 mmol/L Low 21.0-32.0 [facility] Comment on above: Performed By: #### L 500.2500 ####[facility] [address] [place], [address] Creatinine [Mass/Vol] 0.63 mg/dL Low 0.70-1.20 [facility] Comment on above: Performed By: #### L 500.2500 ####[facility] [address] [place], [address] ECRCL 136.46 ml/min Normal 50-250 [facility] Comment on above: Performed By: #### L 500.2500 ####[facility] [address] [place], [address] GAP 13 Normal 5-15 [facility] Comment on above: Performed By: #### L 500.2500 ####[facility] [address] [place], [address] GFR/1.73 sq M.predicted among non-blacks MDRD (S/P/Bld) [Vol rate/Area] 122 mL/min/{1.73_m2} Normal >60 [facility] Comment on above: Result Comment: mL/m in/1.73m2 CKD-EPI Creatinine Equation (2020) Performed By: #### L 500.2500 ####[facility] [address] [place], [address] Glucose [Mass/Vol] 249 mg/dL High 70-99 [facility] Comment on above: Performed By: #### L 500.2500 ####[facility] [address] [place], [address] Potassium [Moles/Vol] 4.1 mmol/L Normal 3.3-5.1 [facility] Comment on above: Performed By: #### L 500.2500 ####[facility] [address] [place], [address] Sodium [Moles/Vol] 138 mmol/L Normal 133-145 [facility] Comment on above: Performed By: #### L 500.2500 ####[facility] [address] [place], [address] Urea nitrogen [Mass/Vol] 6 mg/dL Normal 4-19 [facility] Comment on above: Performed By: #### L 500.2500 ####[facility] [address] [place], [address] BUN/CRE 10.8 RATIO Normal 10-20 [facility] Comment on above: Performed By: #### L 500.2500, L501.5200, L100.0100 ####[facility] [address] [place], [address] Calcium [Mass/Vol] 8.0 mg/dL Normal 7.6-11.0 [facility] Comment on above: Performed By: #### L 500.2500, L501.5200, L100.0100 ####[facility] [address] [place], [address] Chloride [Moles/Vol] 112 mmol/L High 98-108 [facility] Comment on above: Performed By: #### L 500.2500, L501.5200, L100.0100 ####[facility] [address] [place], [address] CO2 [Moles/Vol] 17.1 mmol/L Low 21.0-32.0 [facility] Comment on above: Performed By: #### L 500.2500, L501.5200, L100.0100 ####[facility] [address] [place], [address] Creatinine [Mass/Vol] 0.57 mg/dL Low 0.70-1.20 [facility] Comment on above: Performed By: #### L 500.2500, L501.5200, L100.0100 ####[facility] [address] [place], [address] ECRCL 150.82 ml/min Normal 50-250 [facility] Comment on above: Performed By: #### L 500.2500, L501.5200, L100.0100 ####[facility] [address] [place], [address] GAP 10 Normal 5-15 [facility] Comment on above: Performed By: #### L 500.2500, L501.5200, L100.0100 ####[facility] [address] [place], [address] GFR/1.73 sq M.predicted among non-blacks MDRD (S/P/Bld) [Vol rate/Area] 126 mL/min/{1.73_m2} Normal >60 [facility] Comment on above: Result Comment: mL/m in/1.73m2 CKD-EPI Creatinine Equation (2020) Performed By: #### L 500.2500, L501.5200, L100.0100 ####[facility] [address] [place], [address] Glucose [Mass/Vol] 81 mg/dL Normal 70-99 [facility] Comment on above: Performed By: #### L 500.2500, L501.5200, L100.0100 ####[facility] [address] [place], [address] Potassium [Moles/Vol] 4.0 mmol/L Normal 3.3-5.1 [facility] Comment on above: Result Comment: Hemo lysis present, Results??could be affected.?? Performed By: #### L 500.2500, L501.5200, L100.0100 ####[facility] [address] [place], [address] Sodium [Moles/Vol] 139 mmol/L Normal 133-145 [facility] Comment on above: Performed By: #### L 500.2500, L501.5200, L100.0100 ####[facility] [address] [place], [address] Urea nitrogen [Mass/Vol] 6 mg/dL Normal 4-19 [facility] Comment on above: Performed By: #### L 500.2500, L501.5200, L100.0100 ####[facility] [address] [place], [address] BUN Normal 4-19 [facility] Comment on above: Order Comment: Call MD with results STAT Result Comment: OM C ANCEL REQUEST Performed By: #### L 500.2500 ####[facility] [address] [place], [address] BUN/CRE Normal 10-20 [facility] Comment on above: Order Comment: Call MD with results STAT Result Comment: OM C ANCEL REQUEST Performed By: #### L 500.2500 ####[facility] [address] [place], [address] Calcium Normal 7.6-11.0 [facility] Comment on above: Order Comment: Call MD with results STAT Result Comment: OM C ANCEL REQUEST Performed By: #### L 500.2500 ####[facility] [address] [place], [address] CL Normal 98-108 [facility] Comment on above: Order Comment: Call MD with results STAT Result Comment: OM C ANCEL REQUEST Performed By: #### L 500.2500 ####[facility] [address] [place], [address] CO2 Normal 21.0-32.0 [facility] Comment on above: Order Comment: Call MD with results STAT Result Comment: OM C ANCEL REQUEST Performed By: #### L 500.2500 ####[facility] [address] [place], [address] CREAT,SERUM Normal 0.70-1.20 [facility] Comment on above: Order Comment: Call MD with results STAT Result Comment: OM C ANCEL REQUEST Performed By: #### L 500.2500 ####[facility] [address] [place], [address] eGFR Normal >60 [facility] Comment on above: Order Comment: Call MD with results STAT Result Comment: OM C ANCEL REQUEST Performed By: #### L 500.2500 ####[facility] [address] [place], [address] GAP Normal 5-15 [facility] Comment on above: Order Comment: Call MD with results STAT Result Comment: OM C ANCEL REQUEST Performed By: #### L 500.2500 ####[facility] [address] [place], [address] GLU Normal 70-99 [facility] Comment on above: Order Comment: Call MD with results STAT Result Comment: OM C ANCEL REQUEST Performed By: #### L 500.2500 ####[facility] [address] [place], [address] Potassium Normal 3.3-5.1 [facility] Comment on above: Order Comment: Call MD with results STAT Result Comment: OM C ANCEL REQUEST Performed By: #### L 500.2500 ####[facility] [address] [place], [address] Basic Metabolic Profile (BMP) Normal 133-145 [facility] Comment on above: Order Comment: Call MD with results STAT Result Comment: OM C ANCEL REQUEST Performed By: #### L 500.2500 ####[facility] [address] [place], [address] BUN/CRE 13.3 RATIO Normal 10-20 [facility] Comment on above: Order Comment: Call MD with results STAT Performed By: #### L 500.2500 ####[facility] [address] [place], [address] Calcium [Mass/Vol] 8.1 mg/dL Normal 7.6-11.0 [facility] Comment on above: Order Comment: Call MD with results STAT Performed By: #### L 500.2500 ####[facility] [address] [place], [address] Chloride [Moles/Vol] 108 mmol/L Normal 98-108 [facility] Comment on above: Order Comment: Call MD with results STAT Performed By: #### L 500.2500 ####[facility] [address] [place], [address] CO2 [Moles/Vol] 17.8 mmol/L Low 21.0-32.0 [facility] Comment on above: Order Comment: Call MD with results STAT Performed By: #### L 500.2500 ####[facility] [address] [place], [address] Creatinine [Mass/Vol] 0.56 mg/dL Low 0.70-1.20 [facility] Comment on above: Order Comment: Call MD with results STAT Performed By: #### L 500.2500 ####[facility] [address] [place], [address] ECRCL 153.51 ml/min Normal 50-250 [facility] Comment on above: Order Comment: Call MD with results STAT Performed By: #### L 500.2500 ####[facility] [address] [place], [address] GAP 12 Normal 5-15 [facility] Comment on above: Order Comment: Call MD with results STAT Performed By: #### L 500.2500 ####[facility] [address] [place], [address] GFR/1.73 sq M.predicted among non-blacks MDRD (S/P/Bld) [Vol rate/Area] 126 mL/min/{1.73_m2} Normal >60 [facility] Comment on above: Order Comment: Call MD with results STAT Result Comment: mL/m in/1.73m2 CKD-EPI Creatinine Equation (2020) Performed By: #### L 500.2500 ####[facility] [address] [place], [address] Glucose [Mass/Vol] 126 mg/dL High 70-99 [facility] Comment on above: Order Comment: Call MD with results STAT Performed By: #### L 500.2500 ####[facility] [address] [place], [address] Potassium [Moles/Vol] 3.7 mmol/L Normal 3.3-5.1 [facility] Comment on above: Order Comment: Call MD with results STAT Performed By: #### L 500.2500 ####[facility] [address] [place], [address] Sodium [Moles/Vol] 137 mmol/L Normal 133-145 [facility] Comment on above: Order Comment: Call MD with results STAT Performed By: #### L 500.2500 ####[facility] [address] [place], [address] Urea nitrogen [Mass/Vol] 7 mg/dL Normal 4-19 [facility] Comment on above: Order Comment: Call MD with results STAT Performed By: #### L 500.2500 ####[facility] [address] [place], [address] Bedside Glucoseon 02-19-2025 FINGERSTICK GLU 141 mg/dL High 74-106 [facility] Comment on above: Result Comment: EDGAR HUNG OF PATIENT CARE PER NURSING PROTOCOL Performed By: #### L 501.080 ####[facility] [address] [place], [address] FINGERSTICK GLU 222 mg/dL High 74-106 [facility] Comment on above: Result Comment: EDGAR GEMENT OF PATIENT CARE PER NURSING PROTOCOL Performed By: #### L 501.080 ####[facility] [address] [place], [address] FINGERSTICK GLU 242 mg/dL High 74-106 [facility] Comment on above: Result Comment: EDGAR GEMENT OF PATIENT CARE PER NURSING PROTOCOL Performed By: #### L 501.080 ####[facility] [address] [place], [address] FINGERSTICK GLU 146 mg/dL High 74-106 [facility] Comment on above: Result Comment: EDGAR GEMENT OF PATIENT CARE PER NURSING PROTOCOL Performed By: #### L 501.080 ####[facility] [address] [place], [address] FINGERSTICK GLU 59 mg/dL Low 74-106 [facility] Comment on above: Result Comment: EDGAR GEMENT OF PATIENT CARE PER NURSING PROTOCOL Performed By: #### L 501.080 ####[facility] [address] [place], [address] FINGERSTICK GLU 93 mg/dL Normal 74-106 [facility] Comment on above: Result Comment: EDGAR GEMENT OF PATIENT CARE PER NURSING PROTOCOL Performed By: #### L 501.080 ####[facility] [address] [place], [address] FINGERSTICK GLU 143 mg/dL High 74-106 [facility] Comment on above: Result Comment: EDGAR GEMENT OF PATIENT CARE PER NURSING PROTOCOL Performed By: #### L 501.080 ####[facility] [address] [place], [address] FINGERSTICK GLU 59 mg/dL Low 74-106 [facility] Comment on above: Result Comment: EDGAR GEMENT OF PATIENT CARE PER NURSING PROTOCOL Performed By: #### L 501.080 ####[facility] [address] [place], [address] FINGERSTICK GLU 76 mg/dL Normal 74-106 [facility] Comment on above: Result Comment: EDGAR GEMENT OF PATIENT CARE PER NURSING PROTOCOL Performed By: #### L 501.080 ####[facility] [address] [place], [address] FINGERSTICK GLU 89 mg/dL Normal 74-106 [facility] Comment on above: Result Comment: EDGAR GEMENT OF PATIENT CARE PER NURSING PROTOCOL Performed By: #### L 501.080 ####[facility] [address] [place], [address] FINGERSTICK GLU 118 mg/dL High 74-106 [facility] Comment on above: Result Comment: EDGAR GEMENT OF PATIENT CARE PER NURSING PROTOCOL Performed By: #### L 501.080 ####[facility] [address] [place], [address] FINGERSTICK GLU 111 mg/dL High 74-106 [facility] Comment on above: Result Comment: EDGAR GEMENT OF PATIENT CARE PER NURSING PROTOCOL Performed By: #### L 501.080 ####[facility] [address] [place], [address] FINGERSTICK GLU 123 mg/dL High 74-106 [facility] Comment on above: Result Comment: EDGAR GEMENT OF PATIENT CARE PER NURSING PROTOCOL Performed By: #### L 501.080 ####[facility] [address] [place], [address] CBC W/Diff, Automatedon 06-2 -2024 Absolute Lymph 1.08 X10 3/uL Normal 0.83-4.51 [facility] Comment on above: Performed By: #### L 500.2500, L501.5200, L100.0100 ####[facility] [address] [place], [address] Absolute Neut 18.3 X10 3/uL High 2.0-7.7 [facility] Comment on above: Performed By: #### L 500.2500, L501.5200, L100.0100 ####[facility] [address] [place], [address] Basophils/100 WBC (Bld) 0.2 % Normal 0-1 [facility] Comment on above: Performed By: #### L 500.2500, L501.5200, L100.0100 ####[facility] [address] [place], [address] Eosinophils/100 WBC (Bld) 0.0 % Normal 0-5 [facility] Comment on above: Performed By: #### L 500.2500, L501.5200, L100.0100 ####[facility] [address] [place], [address] Erythrocyte distribution width (RBC) [Ratio] 13.4 % Normal 11.6-14.6 [facility] Comment on above: Performed By: #### L 500.2500, L501.5200, L100.0100 ####[facility] [address] [place], [address] Hematocrit (Bld) [Volume fraction] 35.4 % Low 37-47 [facility] Comment on above: Performed By: #### L 500.2500, L501.5200, L100.0100 ####[facility] [address] [place], [address] Hemoglobin (Bld) [Mass/Vol] 11.8 g/dL Low 12.0-15.0 [facility] Comment on above: Performed By: #### L 500.2500, L501.5200, L100.0100 ####[facility] [address] [place], [address] IG% 1.000 High 0.0-0.9 [facility] Comment on above: Result Comment: IG% - Immature Granulocytes (promyelocytes, myelocytes andmetamyelocytes) > 1% indicates that a LEFT SHIFT is Present. Performed By: #### L 500.2500, L501.5200, L100.0100 ####[facility] [address] [place], [address] Lymphocytes/100 WBC (Bld) 5.3 % Low 19-41 [facility] Comment on above: Performed By: #### L 500.2500, L501.5200, L100.0100 ####[facility] [address] [place], [address] MCH (RBC) [Entitic mass] 29.7 pg Normal 27.0-32.0 [facility] Comment on above: Performed By: #### L 500.2500, L501.5200, L100.0100 ####[facility] [address] [place], [address] MCHC (RBC) [Mass/Vol] 33.3 g/dL Normal 32-36 [facility] Comment on above: Performed By: #### L 500.2500, L501.5200, L100.0100 ####[facility] [address] [place], [address] MCV (RBC) [Entitic vol] 89.2 fL Normal 81-99 [facility] Comment on above: Performed By: #### L 500.2500, L501.5200, L100.0100 ####[facility] [address] [place], [address] Monocytes/100 WBC (Bld) 4.1 % Normal 0-10 [facility] Comment on above: Performed By: #### L 500.2500, L501.5200, L100.0100 ####[facility] [address] [place], [address] Neutrophils/100 WBC (Bld) 89.4 % High 47-70 [facility] Comment on above: Performed By: #### L 500.2500, L501.5200, L100.0100 ####[facility] [address] [place], [address] Nucleated RBC (Bld) [#/Vol] 0 10*3/uL Normal 0-5 [facility] Comment on above: Performed By: #### L 500.2500, L501.5200, L100.0100 ####[facility] [address] [place], [address] Platelet mean volume (Bld) [Entitic vol] 11.5 fL Normal 6.2-12.0 [facility] Comment on above: Performed By: #### L 500.2500, L501.5200, L100.0100 ####[facility] [address] [place], [address] Platelets (Bld) [#/Vol] 188 10*3/uL Normal 150-450 [facility] Comment on above: Performed By: #### L 500.2500, L501.5200, L100.0100 ####[facility] [address] [place], [address] RBC (Bld) [#/Vol] 3.97 10*6/uL Low 4.2-5.4 [facility] Comment on above: Performed By: #### L 500.2500, L501.5200, L100.0100 ####[facility] [address] [place], [address] RDW SD 43.9 fl Normal 35.1-43.9 [facility] Comment on above: Performed By: #### L 500.2500, L501.5200, L100.0100 ####[facility] [address] [place], [address] WBC (Bld) [#/Vol] 20.5 10*3/uL High 4.4-11.0 [facility] Comment on above: Performed By: #### L 500.2500, L501.5200, L100.0100 ####[facility] [address] [place], [address] Magnesiumon 02-19-2025 Magnesium [Mass/Vol] 2.9 mg/dL High 1.5-2.2 [facility] Comment on above: Performed By: #### L 500.2500, L501.5200, L100.0100 ####[facility] [address] [place], [address] 12 Lead EKGon 02-18-2025 12 Lead EKG Normal [facility] Basic Metabolic Profile (BMP )on 02-18-2025 BUN/CRE 16.4 RATIO Normal 10-20 [facility] Comment on above: Order Comment: Call MD with results STAT Performed By: #### L 500.2500 ####[facility] [address] [place], [address] Calcium [Mass/Vol] 7.8 mg/dL Normal 7.6-11.0 [facility] Comment on above: Order Comment: Call MD with results STAT Performed By: #### L 500.2500 ####[facility] [address] [place], [address] Chloride [Moles/Vol] 107 mmol/L Normal 98-108 [facility] Comment on above: Order Comment: Call MD with results STAT Performed By: #### L 500.2500 ####[facility] [address] [place], [address] CO2 [Moles/Vol] 17.2 mmol/L Low 21.0-32.0 [facility] Comment on above: Order Comment: Call MD with results STAT Performed By: #### L 500.2500 ####[facility] [address] [place], [address] Creatinine [Mass/Vol] 0.57 mg/dL Low 0.70-1.20 [facility] Comment on above: Order Comment: Call MD with results STAT Performed By: #### L 500.2500 ####[facility] [address] [place], [address] ECRCL 150.82 ml/min Normal 50-250 [facility] Comment on above: Order Comment: Call MD with results STAT Performed By: #### L 500.2500 ####[facility] [address] [place], [address] GAP 12 Normal 5-15 [facility] Comment on above: Order Comment: Call MD with results STAT Performed By: #### L 500.2500 ####[facility] [address] [place], [address] GFR/1.73 sq M.predicted among non-blacks MDRD (S/P/Bld) [Vol rate/Area] 125 mL/min/{1.73_m2} Normal >60 [facility] Comment on above: Order Comment: Call MD with results STAT Result Comment: mL/m in/1.73m2 CKD-EPI Creatinine Equation (2020) Performed By: #### L 500.2500 ####[facility] [address] [place], [address] Glucose [Mass/Vol] 111 mg/dL High 70-99 [facility] Comment on above: Order Comment: Call MD with results STAT Performed By: #### L 500.2500 ####[facility] [address] [place], [address] Potassium [Moles/Vol] 3.9 mmol/L Normal 3.3-5.1 [facility] Comment on above: Order Comment: Call MD with results STAT Performed By: #### L 500.2500 ####[facility] [address] [place], [address] Sodium [Moles/Vol] 137 mmol/L Normal 133-145 [facility] Comment on above: Order Comment: Call MD with results STAT Performed By: #### L 500.2500 ####[facility] [address] [place], [address] Urea nitrogen [Mass/Vol] 9 mg/dL Normal 4-19 [facility] Comment on above: Order Comment: Call MD with results STAT Performed By: #### L 500.2500 ####[facility] [address] [place], [address] Bedside Glucoseon 02-18-2025 FINGERSTICK GLU 125 mg/dL High 74-106 [facility] Comment on above: Result Comment: EDGAR GEMENT OF PATIENT CARE PER NURSING PROTOCOL Performed By: #### L 501.080 ####[facility] [address] [place], [address] FINGERSTICK GLU 121 mg/dL High 74-106 [facility] Comment on above: Result Comment: EDGAR GEMENT OF PATIENT CARE PER NURSING PROTOCOL Performed By: #### L 501.080 ####[facility] [address] [place], [address] FINGERSTICK GLU 93 mg/dL Normal 74-106 [facility] Comment on above: Result Comment: EDGAR GEMENT OF PATIENT CARE PER NURSING PROTOCOL Performed By: #### L 501.080 ####[facility] [address] [place], [address] FINGERSTICK GLU 97 mg/dL Normal 74-106 [facility] Comment on above: Result Comment: EDGAR GEMENT OF PATIENT CARE PER NURSING PROTOCOL Performed By: #### L 501.080 ####[facility] [address] [place], [address] FINGERSTICK GLU 144 mg/dL High 74-106 [facility] Comment on above: Result Comment: EDGAR GEMENT OF PATIENT CARE PER NURSING PROTOCOL Performed By: #### L 501.080 ####[facility] [address] [place], [address] FINGERSTICK GLU 265 mg/dL High 74-106 [facility] Comment on above: Result Comment: EDGAR HUNG OF PATIENT CARE PER NURSING PROTOCOL Performed By: #### L 501.080 ####[facility] [address] [place], [address] Beta-Hydroxbytyrateon 2024 BETA-HYDROXYBUT 2.2 mmol/L High 0.0-0.3 [facility] Comment on above: Performed By: #### L 501.6901 ####[facility] [address] [place], [address] CBC W/Diff, Automatedon 01-27 Absolute Lymph 0.88 X10 3/uL Normal 0.83-4.51 [facility] Comment on above: Performed By: #### L 500.4050, L100.0100, L700.6800, L501.2450, L501.5200 ####[facility] [address] [place], [address] Absolute Neut 17.1 X10 3/uL High 2.0-7.7 [facility] Comment on above: Performed By: #### L 500.4050, L100.0100, L700.6800, L501.2450, L501.5200 ####[facility] [address] [place], [address] Basophils/100 WBC (Bld) 0.5 % Normal 0-1 [facility] Comment on above: Performed By: #### L 500.4050, L100.0100, L700.6800, L501.2450, L501.5200 ####[facility] [address] [place], [address] Eosinophils/100 WBC (Bld) 0.0 % Normal 0-5 [facility] Comment on above: Performed By: #### L 500.4050, L100.0100, L700.6800, L501.2450, L501.5200 ####[facility] [address] [place], [address] Erythrocyte distribution width (RBC) [Ratio] 13.3 % Normal 11.6-14.6 [facility] Comment on above: Performed By: #### L 500.4050, L100.0100, L700.6800, L501.2450, L501.5200 ####[facility] [address] [place], [address] Hematocrit (Bld) [Volume fraction] 41.2 % Normal 37-47 [facility] Comment on above: Performed By: #### L 500.4050, L100.0100, L700.6800, L501.2450, L501.5200 ####[facility] [address] [place], [address] Hemoglobin (Bld) [Mass/Vol] 13.7 g/dL Normal 12.0-15.0 [facility] Comment on above: Performed By: #### L 500.4050, L100.0100, L700.6800, L501.2450, L501.5200 ####[facility] [address] [place], [address] IG% 1.600 High 0.0-0.9 [facility] Comment on above: Result Comment: IG% - Immature Granulocytes (promyelocytes, myelocytes andmetamyelocytes) > 1% indicates that a LEFT SHIFT is Present. Performed By: #### L 500.4050, L100.0100, L700.6800, L501.2450, L501.5200 ####[facility] [address] [place], [address] Lymphocytes/100 WBC (Bld) 4.7 % Low 19-41 [facility] Comment on above: Performed By: #### L 500.4050, L100.0100, L700.6800, L501.2450, L501.5200 ####[facility] [address] [place], [address] MCH (RBC) [Entitic mass] 29.3 pg Normal 27.0-32.0 [facility] Comment on above: Performed By: #### L 500.4050, L100.0100, L700.6800, L501.2450, L501.5200 ####[facility] [address] [place], [address] MCHC (RBC) [Mass/Vol] 33.3 g/dL Normal 32-36 [facility] Comment on above: Performed By: #### L 500.4050, L100.0100, L700.6800, L501.2450, L501.5200 ####[facility] [address] [place], [address] MCV (RBC) [Entitic vol] 88.0 fL Normal 81-99 [facility] Comment on above: Performed By: #### L 500.4050, L100.0100, L700.6800, L501.2450, L501.5200 ####[facility] [address] [place], [address] Monocytes/100 WBC (Bld) 2.3 % Normal 0-10 [facility] Comment on above: Performed By: #### L 500.4050, L100.0100, L700.6800, L501.2450, L501.5200 ####[facility] [address] [place], [address] Neutrophils/100 WBC (Bld) 90.9 % High 47-70 [facility] Comment on above: Performed By: #### L 500.4050, L100.0100, L700.6800, L501.2450, L501.5200 ####[facility] [address] [place], [address] Nucleated RBC (Bld) [#/Vol] 0 10*3/uL Normal 0-5 [facility] Comment on above: Performed By: #### L 500.4050, L100.0100, L700.6800, L501.2450, L501.5200 ####[facility] [address] [place], [address] Platelet mean volume (Bld) [Entitic vol] 11.8 fL Normal 6.2-12.0 [facility] Comment on above: Performed By: #### L 500.4050, L100.0100, L700.6800, L501.2450, L501.5200 ####[facility] [address] [place], [address] Platelets (Bld) [#/Vol] 226 10*3/uL Normal 150-450 [facility] Comment on above: Performed By: #### L 500.4050, L100.0100, L700.6800, L501.2450, L501.5200 ####[facility] [address] [place], [address] RBC (Bld) [#/Vol] 4.68 10*6/uL Normal 4.2-5.4 [facility] Comment on above: Performed By: #### L 500.4050, L100.0100, L700.6800, L501.2450, L501.5200 ####[facility] [address] [place], [address] RDW SD 42.8 fl Normal 35.1-43.9 [facility] Comment on above: Performed By: #### L 500.4050, L100.0100, L700.6800, L501.2450, L501.5200 ####[facility] [address] [place], [address] WBC (Bld) [#/Vol] 18.8 10*3/uL High 4.4-11.0 [facility] Comment on above: Performed By: #### L 500.4050, L100.0100, L700.6800, L501.2450, L501.5200 ####[facility] [address] [place], [address] Comprehensive Metabolic Prof ilon 02-18-2025 Albumin [Mass/Vol] 4.3 g/dL Normal 3.5-5.0 [facility] Comment on above: Performed By: #### L 500.4050, L100.0100, L700.6800, L501.2450, L501.5200 ####[facility] [address] [place], [address] Albumin/Globulin [Mass ratio] 1.7 {ratio} Normal 0.9-2.4 [facility] Comment on above: Performed By: #### L 500.4050, L100.0100, L700.6800, L501.2450, L501.5200 ####[facility] [address] [place], [address] ALK PHOS 85 U/L Normal 35-104 [facility] Comment on above: Performed By: #### L 500.4050, L100.0100, L700.6800, L501.2450, L501.5200 ####[facility] [address] [place], [address] ALT [Catalytic activity/Vol] 11 U/L Normal <=34 [facility] Comment on above: Performed By: #### L 500.4050, L100.0100, L700.6800, L501.2450, L501.5200 ####[facility] [address] [place], [address] AST [Catalytic activity/Vol] 17 U/L Normal <=31 [facility] Comment on above: Performed By: #### L 500.4050, L100.0100, L700.6800, L501.2450, L501.5200 ####[facility] [address] [place], [address] Bilirubin [Mass/Vol] 0.79 mg/dL Normal 0.00-1.30 [facility] Comment on above: Performed By: #### L 500.4050, L100.0100, L700.6800, L501.2450, L501.5200 ####[facility] [address] [place], [address] BUN/CRE 15.1 RATIO Normal 10-20 [facility] Comment on above: Performed By: #### L 500.4050, L100.0100, L700.6800, L501.2450, L501.5200 ####[facility] [address] [place], [address] Calcium [Mass/Vol] 9.6 mg/dL Normal 7.6-11.0 [facility] Comment on above: Performed By: #### L 500.4050, L100.0100, L700.6800, L501.2450, L501.5200 ####[facility] [address] [place], [address] Chloride [Moles/Vol] 101 mmol/L Normal 98-108 [facility] Comment on above: Performed By: #### L 500.4050, L100.0100, L700.6800, L501.2450, L501.5200 ####[facility] [address] [place], [address] CO2 [Moles/Vol] 15.4 mmol/L Low 21.0-32.0 [facility] Comment on above: Performed By: #### L 500.4050, L100.0100, L700.6800, L501.2450, L501.5200 ####[facility] [address] [place], [address] Creatinine [Mass/Vol] 0.73 mg/dL Normal 0.70-1.20 [facility] Comment on above: Performed By: #### L 500.4050, L100.0100, L700.6800, L501.2450, L501.5200 ####[facility] [address] [place], [address] GAP 20 High 5-15 [facility] Comment on above: Performed By: #### L 500.4050, L100.0100, L700.6800, L501.2450, L501.5200 ####[facility] [address] [place], [address] GFR/1.73 sq M.predicted among non-blacks MDRD (S/P/Bld) [Vol rate/Area] 114 mL/min/{1.73_m2} Normal >60 [facility] Comment on above: Result Comment: mL/m in/1.73m2 CKD-EPI Creatinine Equation (2020) Performed By: #### L 500.4050, L100.0100, L700.6800, L501.2450, L501.5200 ####[facility] [address] [place], [address] Globulin (S) [Mass/Vol] 2.6 g/dL Normal 2.2-4.2 [facility] Comment on above: Performed By: #### L 500.4050, L100.0100, L700.6800, L501.2450, L501.5200 ####[facility] [address] [place], [address] Glucose [Mass/Vol] 324 mg/dL High 70-99 [facility] Comment on above: Performed By: #### L 500.4050, L100.0100, L700.6800, L501.2450, L501.5200 ####[facility] [address] [place], [address] Potassium [Moles/Vol] 4.2 mmol/L Normal 3.3-5.1 [facility] Comment on above: Performed By: #### L 500.4050, L100.0100, L700.6800, L501.2450, L501.5200 ####[facility] [address] [place], [address] Sodium [Moles/Vol] 136 mmol/L Normal 133-145 [facility] Comment on above: Performed By: #### L 500.4050, L100.0100, L700.6800, L501.2450, L501.5200 ####[facility] [address] [place], [address] T PROT 6.9 g/dL Normal 5.9-8.4 [facility] Comment on above: Performed By: #### L 500.4050, L100.0100, L700.6800, L501.2450, L501.5200 ####[facility] [address] [place], [address] Urea nitrogen [Mass/Vol] 11 mg/dL Normal 4-19 [facility] Comment on above: Performed By: #### L 500.4050, L100.0100, L700.6800, L501.2450, L501.5200 ####[facility] [address] [place], [address] Emergency Department Summary on 02-18-2025 Emergency Department Summary Normal [facility] H AND P Exam - Hospitaliston 02-18-2025 H&P Exam - Hospitalist Normal [facility] Lipaseon 02-18-2025 Lipase [Catalytic activity/Vol] 9 U/L Low 13-75 [facility] Comment on above: Result Comment: Sulma schmitz note:LIPASE revised reference range effective 22.New Lipase methodology. Expected to produce lower valuesthan the previous assay method.NEW Reference Range: 13 - 75 U/L Performed By: #### L 500.4050, L100.0100, L700.6800, L501.2450, L501.5200 ####[facility] [address] [place], [address] Magnesiumon 02-18-2025 Magnesium [Mass/Vol] 1.5 mg/dL Normal 1.5-2.2 [facility] Comment on above: Performed By: #### L 500.4050, L100.0100, L700.6800, L501.2450, L501.5200 ####[facility] [address] [place], [address] ,Serum,hCG Quali.on 02-18-2025 HCG, SERUM QUAL Negative Normal [facility] Comment on above: Performed By: #### L 500.4050, L100.0100, L700.6800, L501.2450, L501.5200 ####[facility] [address] [place], [address] Urinalysis, Completeon 02-18 RBC 0-5 SEEN Normal 0-5 [facility] Comment on above: Order Comment: CLEAN CATCH Performed By: #### L 400.0001 ####[facility] [address] [place], [address] WBC 0-5 SEEN Normal 0-5 [facility] Comment on above: Order Comment: CLEAN CATCH Performed By: #### L 400.0001 ####[facility] [address] [place], [address] EPI,SQUAMOUS 5-10 SEEN Normal 5-10 [facility] Comment on above: Order Comment: CLEAN CATCH Performed By: #### L 400.0001 ####[facility] [address] [place], [address] BACTERIA 0 SEEN Normal None Seen [facility] Comment on above: Order Comment: CLEAN CATCH Performed By: #### L 400.0001 ####[facility] [address] [place], [address] Mucus Ql (Urine sed) 0 SEEN Normal [facility] Comment on above: Order Comment: CLEAN CATCH Performed By: #### L 400.0001 ####[facility] [address] [place], [address] Venous Blood Gason 5 Blood Gas Type ISABELLE [facility] Comment on above: Performed By: #### L 9000.0810 ####[facility] [address] [place], [address] CO2 [Moles/Vol] 22 mmol/L Low 23-33 [facility] Comment on above: Performed By: #### L 9000.0810 ####[facility] [address] [place], [address] HCO3 (Bld) [Moles/Vol] 22 mmol/L Normal 22-26 [facility] Comment on above: Performed By: #### L 9000.0810 ####[facility] [address] [place], [address] O2 Delivery Dev Not entered [facility] Comment on above: Performed By: #### L 9000.0810 ####[facility] [address] [place], [address] SITE Not entered [facility] Comment on above: Performed By: #### L 9000.0810 ####[facility] [address] [place], [address] VBG BE -1 mmol/L Normal -1.0-3.5 [facility] Comment on above: Performed By: #### L 9000.0810 ####[facility] [address] [place], [address] VBG pCO2 26.5 mmHg Low 41-51 [facility] Comment on above: Performed By: #### L 9000.0810 ####[facility] [address] [place], [address] VBG pH 7.52 High 7.32-7.42 [facility] Comment on above: Performed By: #### L 9000.0810 ####[facility] [address] [place], [address] VBG PO2 29 mmHg Normal 25-40 [facility] Comment on above: Performed By: #### L 9000.0810 ####[facility] [address] [place], [address] VBG SO2 64 Normal 50-70 [facility] Comment on above: Performed By: #### L 9000.0810 ####[facility] [address] [place], [address] Hepatitis A AB, Totalon 06-1 HEPATITIS A,TOT [...] HAVtotal antibody results to IgM (e.g., panel #[id number] HAVAntibody w/ Rfx).Performed at: CB - [facility] [address] [place], [place] [id number] Director: Esteban Jin PhD, Phone: [phone] Performed By: #### L 3890.6102, L3100.0300, L3410.9992, L500.3400, L3890.6301, L500.2500, L501.9520, L3890.6202, L501.9985, L100.0100, L300.3900, L3100.0460 ####[facility] [address] [place], [address] Hepatitis B Core Ab Totalon 02-05-2025 HEP B CORE,TOT Negative Normal Negative [facility] Comment on above: Order Comment: KATHY CALDERON ORDERED BMP,LIVER,CBCD,PT/INR,TSH,HEBSAG,HECAB,HEAT,HEP B CORE, AND ELF.ANTONIA ORDERED CMP AND A1C Performed By: #### L 3890.6102, L3100.0300, L3410.9992, L500.3400, L3890.6301, L500.2500, L501.9520, L3890.6202, L501.9985, L100.0100, L300.3900, L3100.0460 ####[facility] [address] [place], [address] L3410.9992on 02-05-2025 [facility] Misc. COMMENT Normal . [facility] Comment on above: Order Comment: KATHY CALDERON ORDERED BMP,LIVER,CBCD,PT/INR,TSH,HEBSAG,HECAB,HEAT,HEP B CORE, AND ELF.ANTONIA ORDERED CMP AND [id number] Result Comment: Test Ordered: [id number] Enhanced Liver Fibrosis (ELF)ELF(TM) Score 8.11 BN [...] trials. J Hepatol. 2020 Feb;73(1):26-39.Performed at: [facility] [address] [id number] Director: Brian Rouse MD, Phone: [phone] at: [facility] [address] [id number] Director: Esteban Jin PhD, Phone: [phone] Performed By: #### L 3890.6102, L3100.0300, L3410.9992, L500.3400, L3890.6301, L500.2500, L501.9520, L3890.6202, L501.9985, L100.0100, L300.3900, L3100.0460 ####[facility] [address] [place], [address] Basic Metabolic Profile (BMP )on 02-03-2025 BUN/CRE 12.4 RATIO Normal 10-20 [facility] Comment on above: Order Comment: KATHY CALDERON ORDERED BMP,LIVER,CBCD,PT/INR,TSH,HEBSAG,HECAB,HEAT,HEP B CORE, AND ELF.ANTONIA ORDERED CMP AND A1C Performed By: #### L 3890.6102, L3100.0300, L3410.9992, L500.3400, L3890.6301, L500.2500, L501.9520, L3890.6202, L501.9985, L100.0100, L300.3900, L3100.0460 ####[facility] [address] [place], [address] Calcium [Mass/Vol] 9.7 mg/dL Normal 7.6-11.0 [facility] Comment on above: Order Comment: KATHY CALDERON ORDERED BMP,LIVER,CBCD,PT/INR,TSH,HEBSAG,HECAB,HEAT,HEP B CORE, AND ELF.PICTURE ENLARGER.SAMANTHAHOF ORDERED CMP AND A1C Performed By: #### L 3890.6102, L3100.0300, L3410.9992, L500.3400, L3890.6301, L500.2500, L501.9520, L3890.6202, L501.9985, L100.0100, L300.3900, L3100.0460 ####[facility] [address] [facility] [place], [place], [phone] Chloride [Moles/Vol] 96 mmol/L Low 98-108 [facility] Comment on above: Order Comment: KATHY CALDERON ORDERED BMP,LIVER,CBCD,PT/INR,TSH,HEBSAG,HECAB,HEAT,HEP B CORE, AND ELF.PICTURE ENLARGER.ATASANDIHOF ORDERED CMP AND A1C Performed By: #### L 3890.6102, L3100.0300, L3410.9992, L500.3400, L3890.6301, L500.2500, L501.9520, L3890.6202, L501.9985, L100.0100, L300.3900, L3100.0460 ####[facility] [address] [facility] [place], [place], [phone] CO2 [Moles/Vol] 22.5 mmol/L Normal 21.0-32.0 [facility] Comment on above: Order Comment: KATHY CALDERON ORDERED BMP,LIVER,CBCD,PT/INR,TSH,HEBSAG,HECAB,HEAT,HEP B CORE, AND ELF.PICTURE ENLARGER.MIKEYNNHOF ORDERED CMP AND A1C Performed By: #### L 3890.6102, L3100.0300, L3410.9992, L500.3400, L3890.6301, L500.2500, L501.9520, L3890.6202, L501.9985, L100.0100, L300.3900, L3100.0460 ####[facility] [address] [place], [address] Creatinine [Mass/Vol] 0.78 mg/dL Normal 0.70-1.20 [facility] Comment on above: Order Comment: KATHY CALDERON ORDERED BMP,LIVER,CBCD,PT/INR,TSH,HEBSAG,HECAB,HEAT,HEP B CORE, AND ELF.ANTONIA ORDERED CMP AND A1C Performed By: #### L 3890.6102, L3100.0300, L3410.9992, L500.3400, L3890.6301, L500.2500, L501.9520, L3890.6202, L501.9985, L100.0100, L300.3900, L3100.0460 ####[facility] [address] [place], [address] GAP 15 Normal 5-15 [facility] Comment on above: Order Comment: KATHY CALDERON ORDERED BMP,LIVER,CBCD,PT/INR,TSH,HEBSAG,HECAB,HEAT,HEP B CORE, AND ELF.ANTONIA ORDERED CMP AND A1C Performed By: #### L 3890.6102, L3100.0300, L3410.9992, L500.3400, L3890.6301, L500.2500, L501.9520, L3890.6202, L501.9985, L100.0100, L300.3900, L3100.0460 ####[facility] [address] [place], [address] GFR/1.73 sq M.predicted among non-blacks MDRD (S/P/Bld) [Vol rate/Area] 106 mL/min/{1.73_m2} Normal >60 [facility] Comment on above: Order Comment: KATHY CALDERON ORDERED BMP,LIVER,CBCD,PT/INR,TSH,HEBSAG,HECAB,HEAT,HEP B CORE, AND ELF.PICTURE ENLARGER.SAMANTHAHOWalter ORDERED CMP AND A1C Result Comment: mL/m in/1.73m2 CKD-EPI Creatinine Equation (2020) Performed By: #### L 3890.6102, L3100.0300, L3410.9992, L500.3400, L3890.6301, L500.2500, L501.9520, L3890.6202, L501.9985, L100.0100, L300.3900, L3100.0460 ####[facility] [address] [place], [place], [address] Glucose [Mass/Vol] 459 mg/dL Invalid Interpretation Code 70-99 [facility] Comment on above: Order Comment: KATHY CALDERON ORDERED BMP,LIVER,CBCD,PT/INR,TSH,HEBSAG,HECAB,HEAT,HEP B CORE, AND ELF.PICTURE ENLARGER.SAMANTHAHOWalter ORDERED CMP AND A1C Result Comment: Crit ical Result(s) Called at: by:??Results read back bysa.LEFT VOICEMAIL @ 9140 Performed By: #### L 3890.6102, L3100.0300, L3410.9992, L500.3400, L3890.6301, L500.2500, L501.9520, L3890.6202, L501.9985, L100.0100, L300.3900, L3100.0460 ####[facility] [address] [place], [place], [phone] Potassium [Moles/Vol] 4.7 mmol/L Normal 3.3-5.1 [facility] Comment on above: Order Comment: KATHY CALDERON ORDERED BMP,LIVER,CBCD,PT/INR,TSH,HEBSAG,HECAB,HEAT,HEP B CORE, AND ELF.PICTURE ENLARGER.SAMANTHAHOWalter ORDERED CMP AND A1C Performed By: #### L 3890.6102, L3100.0300, L3410.9992, L500.3400, L3890.6301, L500.2500, L501.9520, L3890.6202, L501.9985, L100.0100, L300.3900, L3100.0460 ####[facility] [address] [place], [address] Sodium [Moles/Vol] 133 mmol/L Normal 133-145 [facility] Comment on above: Order Comment: KATHY CALDERON ORDERED BMP,LIVER,CBCD,PT/INR,TSH,HEBSAG,HECAB,HEAT,HEP B CORE, AND ELF.PICTURE ENLARGER.AMOS ORDERED CMP AND A1C Performed By: #### L 3890.6102, L3100.0300, L3410.9992, L500.3400, L3890.6301, L500.2500, L501.9520, L3890.6202, L501.9985, L100.0100, L300.3900, L3100.0460 ####[facility] [address] [place], [address] Urea nitrogen [Mass/Vol] 10 mg/dL Normal 4-19 [facility] Comment on above: Order Comment: KATHY CALDERON ORDERED BMP,LIVER,CBCD,PT/INR,TSH,HEBSAG,HECAB,HEAT,HEP B CORE, AND ELF.ANTONIA ORDERED CMP AND A1C Performed By: #### L 3890.6102, L3100.0300, L3410.9992, L500.3400, L3890.6301, L500.2500, L501.9520, L3890.6202, L501.9985, L100.0100, L300.3900, L3100.0460 ####[facility] [address] [place], [place], [phone] CBC W/Diff, Automatedon 06-0 9-2024 Absolute Lymph 1.69 X10 3/uL Normal 0.83-4.51 [facility] Comment on above: Order Comment: KATHY CALDERON ORDERED BMP,LIVER,CBCD,PT/INR,TSH,HEBSAG,HECAB,HEAT,HEP B CORE, AND ELF.ANTONIA ORDERED CMP AND A1C Performed By: #### L 3890.6102, L3100.0300, L3410.9992, L500.3400, L3890.6301, L500.2500, L501.9520, L3890.6202, L501.9985, L100.0100, L300.3900, L3100.0460 ####[facility] [address] [place], [address] Absolute Neut 7.9 X10 3/uL High 2.0-7.7 [facility] Comment on above: Order Comment: KATHY CALDERON ORDERED BMP,LIVER,CBCD,PT/INR,TSH,HEBSAG,HECAB,HEAT,HEP B CORE, AND ELF.ANTONIA ORDERED CMP AND A1C Performed By: #### L 3890.6102, L3100.0300, L3410.9992, L500.3400, L3890.6301, L500.2500, L501.9520, L3890.6202, L501.9985, L100.0100, L300.3900, L3100.0460 ####[facility] [address] [place], [address] Basophils/100 WBC (Bld) 0.5 % Normal 0-1 [facility] Comment on above: Order Comment: KATHY CALDERON ORDERED BMP,LIVER,CBCD,PT/INR,TSH,HEBSAG,HECAB,HEAT,HEP B CORE, AND ELF.ANTONIA ORDERED CMP AND A1C Performed By: #### L 3890.6102, L3100.0300, L3410.9992, L500.3400, L3890.6301, L500.2500, L501.9520, L3890.6202, L501.9985, L100.0100, L300.3900, L3100.0460 ####[facility] [address] [place], [place], [phone] Eosinophils/100 WBC (Bld) 0.5 % Normal 0-5 [facility] Comment on above: Order Comment: KATHY CALDERON ORDERED BMP,LIVER,CBCD,PT/INR,TSH,HEBSAG,HECAB,HEAT,HEP B CORE, AND ELF.ANTONIA ORDERED CMP AND A1C Performed By: #### L 3890.6102, L3100.0300, L3410.9992, L500.3400, L3890.6301, L500.2500, L501.9520, L3890.6202, L501.9985, L100.0100, L300.3900, L3100.0460 ####[facility] [address] [place], [place], [phone] Erythrocyte distribution width (RBC) [Ratio] 13.4 % Normal 11.6-14.6 [facility] Comment on above: Order Comment: KATHY CALDERON ORDERED BMP,LIVER,CBCD,PT/INR,TSH,HEBSAG,HECAB,HEAT,HEP B CORE, AND ELF.ANTONIA ORDERED CMP AND A1C Performed By: #### L 3890.6102, L3100.0300, L3410.9992, L500.3400, L3890.6301, L500.2500, L501.9520, L3890.6202, L501.9985, L100.0100, L300.3900, L3100.0460 ####[facility] [address] [place], [place], [phone] Hematocrit (Bld) [Volume fraction] 40.5 % Normal 37-47 [facility] Comment on above: Order Comment: KATHY CALDERON ORDERED BMP,LIVER,CBCD,PT/INR,TSH,HEBSAG,HECAB,HEAT,HEP B CORE, AND ELF.ANTONIA ORDERED CMP AND A1C Performed By: #### L 3890.6102, L3100.0300, L3410.9992, L500.3400, L3890.6301, L500.2500, L501.9520, L3890.6202, L501.9985, L100.0100, L300.3900, L3100.0460 ####[facility] [address] [place], [address] Hemoglobin (Bld) [Mass/Vol] 13.5 g/dL Normal 12.0-15.0 [facility] Comment on above: Order Comment: KATHY CALDERON ORDERED BMP,LIVER,CBCD,PT/INR,TSH,HEBSAG,HECAB,HEAT,HEP B CORE, AND ELF.ANTONIA ORDERED CMP AND A1C Performed By: #### L 3890.6102, L3100.0300, L3410.9992, L500.3400, L3890.6301, L500.2500, L501.9520, L3890.6202, L501.9985, L100.0100, L300.3900, L3100.0460 ####[facility] [address] [place], [address] IG% 1.500 High 0.0-0.9 [facility] Comment on above: Order Comment: KATHY CALDERON ORDERED BMP,LIVER,CBCD,PT/INR,TSH,HEBSAG,HECAB,HEAT,HEP B CORE, AND ELF.ANTONIA ORDERED CMP AND A1C Result Comment: IG% - Immature Granulocytes (promyelocytes, myelocytes andmetamyelocytes) > 1% indicates that a LEFT SHIFT is Present. Performed By: #### L 3890.6102, L3100.0300, L3410.9992, L500.3400, L3890.6301, L500.2500, L501.9520, L3890.6202, L501.9985, L100.0100, L300.3900, L3100.0460 ####[facility] [address] [place], [address] Lymphocytes/100 WBC (Bld) 16.3 % Low 19-41 [facility] Comment on above: Order Comment: KATHY CALDERON ORDERED BMP,LIVER,CBCD,PT/INR,TSH,HEBSAG,HECAB,HEAT,HEP B CORE, AND ELF.PICTURE ENLARGER.SAMANTHAHOWalter ORDERED CMP AND A1C Performed By: #### L 3890.6102, L3100.0300, L3410.9992, L500.3400, L3890.6301, L500.2500, L501.9520, L3890.6202, L501.9985, L100.0100, L300.3900, L3100.0460 ####[facility] [address] [place], [place], [phone] MCH (RBC) [Entitic mass] 29.7 pg Normal 27.0-32.0 [facility] Comment on above: Order Comment: KATHY CALDERON ORDERED BMP,LIVER,CBCD,PT/INR,TSH,HEBSAG,HECAB,HEAT,HEP B CORE, AND ELF.PICTURE ENLARGER.SAMANTHAHOWalter ORDERED CMP AND A1C Performed By: #### L 3890.6102, L3100.0300, L3410.9992, L500.3400, L3890.6301, L500.2500, L501.9520, L3890.6202, L501.9985, L100.0100, L300.3900, L3100.0460 ####[facility] [address] [place], [place], [phone] MCHC (RBC) [Mass/Vol] 33.3 g/dL Normal 32-36 [facility] Comment on above: Order Comment: KATHY CALDERON ORDERED BMP,LIVER,CBCD,PT/INR,TSH,HEBSAG,HECAB,HEAT,HEP B CORE, AND ELF.PICTURE ENLARGER.SAMANTHAHOWalter ORDERED CMP AND A1C Performed By: #### L 3890.6102, L3100.0300, L3410.9992, L500.3400, L3890.6301, L500.2500, L501.9520, L3890.6202, L501.9985, L100.0100, L300.3900, L3100.0460 ####[facility] [address] [place], [address] MCV (RBC) [Entitic vol] 89.0 fL Normal 81-99 [facility] Comment on above: Order Comment: KATHY CALDERON ORDERED BMP,LIVER,CBCD,PT/INR,TSH,HEBSAG,HECAB,HEAT,HEP B CORE, AND ELF.ANTONIA ORDERED CMP AND A1C Performed By: #### L 3890.6102, L3100.0300, L3410.9992, L500.3400, L3890.6301, L500.2500, L501.9520, L3890.6202, L501.9985, L100.0100, L300.3900, L3100.0460 ####[facility] [address] [place], [address] Monocytes/100 WBC (Bld) 4.8 % Normal 0-10 [facility] Comment on above: Order Comment: KATHY CALDERON ORDERED BMP,LIVER,CBCD,PT/INR,TSH,HEBSAG,HECAB,HEAT,HEP B CORE, AND ELF.ANTONIA ORDERED CMP AND A1C Performed By: #### L 3890.6102, L3100.0300, L3410.9992, L500.3400, L3890.6301, L500.2500, L501.9520, L3890.6202, L501.9985, L100.0100, L300.3900, L3100.0460 ####[facility] [address] [facility] [place], [address] Neutrophils/100 WBC (Bld) 76.4 % High 47-70 [facility] Comment on above: Order Comment: KATHY CALDERON ORDERED BMP,LIVER,CBCD,PT/INR,TSH,HEBSAG,HECAB,HEAT,HEP B CORE, AND ELF.SAMANTHAHOWalter ORDERED CMP AND A1C Performed By: #### L 3890.6102, L3100.0300, L3410.9992, L500.3400, L3890.6301, L500.2500, L501.9520, L3890.6202, L501.9985, L100.0100, L300.3900, L3100.0460 ####[facility] [address] [place], [place], [id number] Nucleated RBC (Bld) [#/Vol] 0 10*3/uL Normal 0-5 [facility] Comment on above: Order Comment: KATHY CALDERON ORDERED BMP,LIVER,CBCD,PT/INR,TSH,HEBSAG,HECAB,HEAT,HEP B CORE, AND ELF.PICTURE ENLARGER.SAMANTHAHOWalter ORDERED CMP AND A1C Performed By: #### L 3890.6102, L3100.0300, L3410.9992, L500.3400, L3890.6301, L500.2500, L501.9520, L3890.6202, L501.9985, L100.0100, L300.3900, L3100.0460 ####[facility] [address] [place], [address] Platelet mean volume (Bld) [Entitic vol] 11.5 fL Normal 6.2-12.0 [facility] Comment on above: Order Comment: KATHY CALDERON ORDERED BMP,LIVER,CBCD,PT/INR,TSH,HEBSAG,HECAB,HEAT,HEP B CORE, AND ELF.PICTURE ENLARGER.SAMANTHAHOWalter ORDERED CMP AND A1C Performed By: #### L 3890.6102, L3100.0300, L3410.9992, L500.3400, L3890.6301, L500.2500, L501.9520, L3890.6202, L501.9985, L100.0100, L300.3900, L3100.0460 ####[facility] [address] [facility] [place], [phone] Platelets (Bld) [#/Vol] 215 10*3/uL Normal 150-450 [facility] Comment on above: Order Comment: KATHY CALDERON ORDERED BMP,LIVER,CBCD,PT/INR,TSH,HEBSAG,HECAB,HEAT,HEP B CORE, AND ELF.PICTURE ENLARGER.AMOS ORDERED CMP AND A1C Performed By: #### L 3890.6102, L3100.0300, L3410.9992, L500.3400, L3890.6301, L500.2500, L501.9520, L3890.6202, L501.9985, L100.0100, L300.3900, L3100.0460 ####[facility] [address] [place], [place], [phone]) RBC (Bld) [#/Vol] 4.55 10*6/uL Normal 4.2-5.4 [facility] Comment on above: Order Comment: KATHY CALDERON ORDERED BMP,LIVER,CBCD,PT/INR,TSH,HEBSAG,HECAB,HEAT,HEP B CORE, AND ELF.PICTURE ENLARGER.AMOS ORDERED CMP AND A1C Performed By: #### L 3890.6102, L3100.0300, L3410.9992, L500.3400, L3890.6301, L500.2500, L501.9520, L3890.6202, L501.9985, L100.0100, L300.3900, L3100.0460 ####[facility] [address] [place], [place], [phone] RDW SD 43.5 fl Normal 35.1-43.9 [facility] Comment on above: Order Comment: KATHY CALDERON ORDERED BMP,LIVER,CBCD,PT/INR,TSH,HEBSAG,HECAB,HEAT,HEP B CORE, AND ELF.PICTURE ENLARGERDAYANA ORDERED CMP AND A1C Performed By: #### L 3890.6102, L3100.0300, L3410.9992, L500.3400, L3890.6301, L500.2500, L501.9520, L3890.6202, L501.9985, L100.0100, L300.3900, L3100.0460 ####[facility] [address] [place], [address] WBC (Bld) [#/Vol] 10.4 10*3/uL Normal 4.4-11.0 [facility] Comment on above: Order Comment: KATHY CALDERON ORDERED BMP,LIVER,CBCD,PT/INR,TSH,HEBSAG,HECAB,HEAT,HEP B CORE, AND ELF.ANTONIA ORDERED CMP AND A1C Performed By: #### L 3890.6102, L3100.0300, L3410.9992, L500.3400, L3890.6301, L500.2500, L501.9520, L3890.6202, L501.9985, L100.0100, L300.3900, L3100.0460 ####[facility] [address] [place], [address] Hemoglobin A1con 02-03-2025 HbA1c (Bld) [Mass fraction] [...] L3890.6202, L501.9985, L100.0100, L300.3900, L3100.0460 ####[facility] [address] [place], [place], [address] Hepatitis B Surface Antibody on 02-03-2025 HEP [...] L3890.6202, L501.9985, L100.0100, L300.3900, L3100.0460 ####[facility] [address] [place], [place], [phone] Hepatitis C Antibodyon 02-03 Hepatitis C Ab [...] testing: HCV Quant by PCR testing -[facility] #[id number] Non Reactive: < 0.8 Equivocal: >/= 0.8 to < 1.0 Reactive: >/= 1.0The CDC requires that a reactive/equivocal HCV antibodyresult be sent out for confirmation. HCV Quant by PCRtesting. Performed By: #### L 3890.6102, L3100.0300, L3410.9992, L500.3400, L3890.6301, L500.2500, L501.9520, L3890.6202, L501.9985, L100.0100, L300.3900, L3100.0460 ####[facility] [address] [place], [place], [phone] L3890.6102on 02-03-2025 HEP B Surf Ag Non-Reactive [...] L3890.6202, L501.9985, L100.0100, L300.3900, L3100.0460 ####[facility] [address] [place], [place], [phone] Liver Profileon 02-03-2025 Albumin [Mass/Vol] 4.2 g/dL Normal 3.5-5.0 [facility] Comment on above: Order Comment: KATHY CALDERON ORDERED BMP,LIVER,CBCD,PT/INR,TSH,HEBSAG,HECAB,HEAT,HEP B CORE, AND ELF.ANTONIA ORDERED CMP AND A1C Performed By: #### L 3890.6102, L3100.0300, L3410.9992, L500.3400, L3890.6301, L500.2500, L501.9520, L3890.6202, L501.9985, L100.0100, L300.3900, L3100.0460 ####[facility] [address] [place], [address] ALK PHOS 95 U/L Normal 35-104 [facility] Comment on above: Order Comment: KATHY CALDERON ORDERED BMP,LIVER,CBCD,PT/INR,TSH,HEBSAG,HECAB,HEAT,HEP B CORE, AND ELF.ANTONIA ORDERED CMP AND A1C Performed By: #### L 3890.6102, L3100.0300, L3410.9992, L500.3400, L3890.6301, L500.2500, L501.9520, L3890.6202, L501.9985, L100.0100, L300.3900, L3100.0460 ####[facility] [address] [place], [address] ALT [Catalytic activity/Vol] 29 U/L Normal <=34 [facility] Comment on above: Order Comment: KATHY CALDERON ORDERED BMP,LIVER,CBCD,PT/INR,TSH,HEBSAG,HECAB,HEAT,HEP B CORE, AND ELF.ANTONIA ORDERED CMP AND A1C Performed By: #### L 3890.6102, L3100.0300, L3410.9992, L500.3400, L3890.6301, L500.2500, L501.9520, L3890.6202, L501.9985, L100.0100, L300.3900, L3100.0460 ####[facility] [address] [place], [place], [phone] AST [Catalytic activity/Vol] 18 U/L Normal <=31 [facility] Comment on above: Order Comment: KATHY CALDERON ORDERED BMP,LIVER,CBCD,PT/INR,TSH,HEBSAG,HECAB,HEAT,HEP B CORE, AND ELF.ANTONIA ORDERED CMP AND A1C Performed By: #### L 3890.6102, L3100.0300, L3410.9992, L500.3400, L3890.6301, L500.2500, L501.9520, L3890.6202, L501.9985, L100.0100, L300.3900, L3100.0460 ####[facility] [address] [place], [address] Bilirubin [Mass/Vol] 0.30 mg/dL Normal 0.00-1.30 [facility] Comment on above: Order Comment: KATHY CALDERON ORDERED BMP,LIVER,CBCD,PT/INR,TSH,HEBSAG,HECAB,HEAT,HEP B CORE, AND ELF.ANTONIA ORDERED CMP AND A1C Performed By: #### L 3890.6102, L3100.0300, L3410.9992, L500.3400, L3890.6301, L500.2500, L501.9520, L3890.6202, L501.9985, L100.0100, L300.3900, L3100.0460 ####[facility] [address] [place], [place], [phone] Bilirubin.direct [Mass/Vol] 0.13 mg/dL Normal 0.00-0.30 [facility] Comment on above: Order Comment: KATHY CALDERON ORDERED BMP,LIVER,CBCD,PT/INR,TSH,HEBSAG,HECAB,HEAT,HEP B CORE, AND ELF.ANTONIA ORDERED CMP AND A1C Performed By: #### L 3890.6102, L3100.0300, L3410.9992, L500.3400, L3890.6301, L500.2500, L501.9520, L3890.6202, L501.9985, L100.0100, L300.3900, L3100.0460 ####[facility] [address] [place], [address] Globulin (S) [Mass/Vol] 2.7 g/dL Normal 2.2-4.2 [facility] Comment on above: Order Comment: KATHY CALDERON ORDERED BMP,LIVER,CBCD,PT/INR,TSH,HEBSAG,HECAB,HEAT,HEP B CORE, AND ELF.ANTONIA ORDERED CMP AND A1C Performed By: #### L 3890.6102, L3100.0300, L3410.9992, L500.3400, L3890.6301, L500.2500, L501.9520, L3890.6202, L501.9985, L100.0100, L300.3900, L3100.0460 ####[facility] [address] [place], [place], [phone] T PROT 6.8 g/dL Normal 5.9-8.4 [facility] Comment on above: Order Comment: KATHY CALDERON ORDERED BMP,LIVER,CBCD,PT/INR,TSH,HEBSAG,HECAB,HEAT,HEP B CORE, AND ELF.ANTONIA ORDERED CMP AND A1C Performed By: #### L 3890.6102, L3100.0300, L3410.9992, L500.3400, L3890.6301, L500.2500, L501.9520, L3890.6202, L501.9985, L100.0100, L300.3900, L3100.0460 ####[facility] [address] [place], [place], [phone] Prothrombin Time w/INRon INR Coag (PPP) [Relative time] 0.9 {INR} Normal [facility] Comment on above: Order Comment: KATHY CALDERON ORDERED BMP,LIVER,CBCD,PT/INR,TSH,HEBSAG,HECAB,HEAT,HEP B CORE, AND ELF.ANTONIA ORDERED CMP AND A1C Performed By: #### L 3890.6102, L3100.0300, L3410.9992, L500.3400, L3890.6301, L500.2500, L501.9520, L3890.6202, L501.9985, L100.0100, L300.3900, L3100.0460 ####[facility] [address] [place], [address] PT Coag (PPP) [Time] 11.9 s Normal 11.7-14.9 [facility] Comment on above: Order Comment: KATHY CALDERON ORDERED BMP,LIVER,CBCD,PT/INR,TSH,HEBSAG,HECAB,HEAT,HEP B CORE, AND ELF.ANTONIA ORDERED CMP AND A1C Performed By: #### L 3890.6102, L3100.0300, L3410.9992, L500.3400, L3890.6301, L500.2500, L501.9520, L3890.6202, L501.9985, L100.0100, L300.3900, L3100.0460 ####[facility] [address] [place], [address] Thyroid Stim Hormone (TSH)on 02-03-2025 TSH 1.140 uIU/mL Normal 0.300-4.200 [facility] Comment on above: Order Comment: KATHY CALDERON ORDERED BMP,LIVER,CBCD,PT/INR,TSH,HEBSAG,HECAB,HEAT,HEP B CORE, AND ELF.ANTONIA ORDERED CMP AND A1C Performed By: #### L 3890.6102, L3100.0300, L3410.9992, L500.3400, L3890.6301, L500.2500, L501.9520, L3890.6202, L501.9985, L100.0100, L300.3900, L3100.0460 ####[facility] [address] [place], [address] Basic Metabolic Profile (BMP )on 02-01-2025 BUN Normal 4-19 [facility] Comment on above: Result Comment: Canc elled via OM: Order cancelled - Patient discharged Performed By: #### L 100.0100, L500.2500 ####[facility] [address] [place], [address] BUN/CRE Normal 10-20 [facility] Comment on above: Result Comment: Canc elled via OM: Order cancelled - Patient discharged Performed By: #### L 100.0100, L500.2500 ####[facility] [address] [place], [address] Calcium Normal 7.6-11.0 [facility] Comment on above: Result Comment: Canc elled via OM: Order cancelled - Patient discharged Performed By: #### L 100.0100, L500.2500 ####[facility] [address] [place], [address] CL Normal 98-108 [facility] Comment on above: Result Comment: Canc elled via OM: Order cancelled - Patient discharged Performed By: #### L 100.0100, L500.2500 ####[facility] [address] [place], [address] CO2 Normal 21.0-32.0 [facility] Comment on above: Result Comment: Canc elled via OM: Order cancelled - Patient discharged Performed By: #### L 100.0100, L500.2500 ####[facility] [address] [place], [address] CREAT,SERUM Normal 0.70-1.20 [facility] Comment on above: Result Comment: Canc elled via OM: Order cancelled - Patient discharged Performed By: #### L 100.0100, L500.2500 ####[facility] [address] [place], [address] eGFR Normal >60 [facility] Comment on above: Result Comment: Canc elled via OM: Order cancelled - Patient discharged Performed By: #### L 100.0100, L500.2500 ####[facility] [address] [place], [address] GAP Normal 5-15 [facility] Comment on above: Result Comment: Canc elled via OM: Order cancelled - Patient discharged Performed By: #### L 100.0100, L500.2500 ####[facility] [address] [place], [address] GLU Normal 70-99 [facility] Comment on above: Result Comment: Canc elled via OM: Order cancelled - Patient discharged Performed By: #### L 100.0100, L500.2500 ####[facility] [address] [place], [address] Potassium Normal 3.3-5.1 [facility] Comment on above: Result Comment: Canc elled via OM: Order cancelled - Patient discharged Performed By: #### L 100.0100, L500.2500 ####[facility] [address] [place], [address] Basic Metabolic Profile (BMP) Normal 133-145 [facility] Comment on above: Result Comment: Canc elled via OM: Order cancelled - Patient discharged Performed By: #### L 100.0100, L500.2500 ####[facility] [address] [place], [address] CBC W/Diff, Automatedon 06-0 7-2024 Absolute Neut Normal 2.0-7.7 [facility] Comment on above: Result Comment: Canc elled via OM: Order cancelled - Patient discharged Performed By: #### L 100.0100, L500.2500 ####[facility] [address] [place], [address] HCT Normal 37-47 [facility] Comment on above: Result Comment: Canc elled via OM: Order cancelled - Patient discharged Performed By: #### L 100.0100, L500.2500 ####[facility] [address] [place], [address] HGB Normal 12.0-15.0 [facility] Comment on above: Result Comment: Canc elled via OM: Order cancelled - Patient discharged Performed By: #### L 100.0100, L500.2500 ####[facility] [address] [place], [address] MCH Normal 27.0-32.0 [facility] Comment on above: Result Comment: Canc elled via OM: Order cancelled - Patient discharged Performed By: #### L 100.0100, L500.2500 ####[facility] [address] [place], [address] MCHC Normal 32-36 [facility] Comment on above: Result Comment: Canc elled via OM: Order cancelled - Patient discharged Performed By: #### L 100.0100, L500.2500 ####[facility] [address] [place], [address] MCV Normal 81-99 [facility] Comment on above: Result Comment: Canc elled via OM: Order cancelled - Patient discharged Performed By: #### L 100.0100, L500.2500 ####[facility] [address] [place], [address] NEUT% Normal 47-70 [facility] Comment on above: Result Comment: Canc elled via OM: Order cancelled - Patient discharged Performed By: #### L 100.0100, L500.2500 ####[facility] [address] [place], [address] PLT Normal 150-450 [facility] Comment on above: Result Comment: Canc elled via OM: Order cancelled - Patient discharged Performed By: #### L 100.0100, L500.2500 ####[facility] [address] [place], [address] RBC Normal 4.2-5.4 [facility] Comment on above: Result Comment: Canc elled via OM: Order cancelled - Patient discharged Performed By: #### L 100.0100, L500.2500 ####[facility] [address] [place], [address] RDW CV Normal 11.6-14.6 [facility] Comment on above: Result Comment: Canc elled via OM: Order cancelled - Patient discharged Performed By: #### L 100.0100, L500.2500 ####[facility] [address] [place], [address] RDW SD Normal 35.1-43.9 [facility] Comment on above: Result Comment: Canc elled via OM: Order cancelled - Patient discharged Performed By: #### L 100.0100, L500.2500 ####[facility] [address] [place], [address] WBC Normal 4.4-11.0 [facility] Comment on above: Result Comment: Canc elled via OM: Order cancelled - Patient discharged Performed By: #### L 100.0100, L500.2500 ####[facility] [address] [place], [address] Basic Metabolic Profile (BMP )on 01-31-2025 BUN Normal 4-19 [facility] Comment on above: Result Comment: Canc elled via OM: Order cancelled - Patient discharged Performed By: #### L 100.0100, L500.2500 ####[facility] [address] [place], [address] BUN/CRE Normal 10-20 [facility] Comment on above: Result Comment: Canc elled via OM: Order cancelled - Patient discharged Performed By: #### L 100.0100, L500.2500 ####[facility] [address] [place], [address] Calcium Normal 7.6-11.0 [facility] Comment on above: Result Comment: Canc elled via OM: Order cancelled - Patient discharged Performed By: #### L 100.0100, L500.2500 ####[facility] [address] [place], [address] CL Normal 98-108 [facility] Comment on above: Result Comment: Canc elled via OM: Order cancelled - Patient discharged Performed By: #### L 100.0100, L500.2500 ####[facility] [address] [place], [address] CO2 Normal 21.0-32.0 [facility] Comment on above: Result Comment: Canc elled via OM: Order cancelled - Patient discharged Performed By: #### L 100.0100, L500.2500 ####[facility] [address] [place], [address] CREAT,SERUM Normal 0.70-1.20 [facility] Comment on above: Result Comment: Canc elled via OM: Order cancelled - Patient discharged Performed By: #### L 100.0100, L500.2500 ####[facility] [address] [place], [address] eGFR Normal >60 [facility] Comment on above: Result Comment: Canc elled via OM: Order cancelled - Patient discharged Performed By: #### L 100.0100, L500.2500 ####[facility] [address] [place], [address] GAP Normal 5-15 [facility] Comment on above: Result Comment: Canc elled via OM: Order cancelled - Patient discharged Performed By: #### L 100.0100, L500.2500 ####[facility] [address] [place], [address] GLU Normal 70-99 [facility] Comment on above: Result Comment: Canc elled via OM: Order cancelled - Patient discharged Performed By: #### L 100.0100, L500.2500 ####[facility] [address] [place], [address] Potassium Normal 3.3-5.1 [facility] Comment on above: Result Comment: Canc elled via OM: Order cancelled - Patient discharged Performed By: #### L 100.0100, L500.2500 ####[facility] [address] [place], [address] Basic Metabolic Profile (BMP) Normal 133-145 [facility] Comment on above: Result Comment: Canc elled via OM: Order cancelled - Patient discharged Performed By: #### L 100.0100, L500.2500 ####[facility] [address] [place], [address] CBC W/Diff, Automatedon 06-0 6-2024 Absolute Neut Normal 2.0-7.7 [facility] Comment on above: Result Comment: Canc elled via OM: Order cancelled - Patient discharged Performed By: #### L 100.0100, L500.2500 ####[facility] [address] [place], [address] HCT Normal 37-47 [facility] Comment on above: Result Comment: Canc elled via OM: Order cancelled - Patient discharged Performed By: #### L 100.0100, L500.2500 ####[facility] [address] [place], [address] HGB Normal 12.0-15.0 [facility] Comment on above: Result Comment: Canc elled via OM: Order cancelled - Patient discharged Performed By: #### L 100.0100, L500.2500 ####[facility] [address] [place], [address] MCH Normal 27.0-32.0 [facility] Comment on above: Result Comment: Canc elled via OM: Order cancelled - Patient discharged Performed By: #### L 100.0100, L500.2500 ####[facility] [address] [place], [address] MCHC Normal 32-36 [facility] Comment on above: Result Comment: Canc elled via OM: Order cancelled - Patient discharged Performed By: #### L 100.0100, L500.2500 ####[facility] [address] [place], [address] MCV Normal 81-99 [facility] Comment on above: Result Comment: Canc elled via OM: Order cancelled - Patient discharged Performed By: #### L 100.0100, L500.2500 ####[facility] [address] [place], [address] NEUT% Normal 47-70 [facility] Comment on above: Result Comment: Canc elled via OM: Order cancelled - Patient discharged Performed By: #### L 100.0100, L500.2500 ####[facility] [address] [place], [address] PLT Normal 150-450 [facility] Comment on above: Result Comment: Canc elled via OM: Order cancelled - Patient discharged Performed By: #### L 100.0100, L500.2500 ####[facility] [address] [place], [address] RBC Normal 4.2-5.4 [facility] Comment on above: Result Comment: Canc elled via OM: Order cancelled - Patient discharged Performed By: #### L 100.0100, L500.2500 ####[facility] [address] [place], [address] RDW CV Normal 11.6-14.6 [facility] Comment on above: Result Comment: Canc elled via OM: Order cancelled - Patient discharged Performed By: #### L 100.0100, L500.2500 ####[facility] [address] [place], [address] RDW SD Normal 35.1-43.9 [facility] Comment on above: Result Comment: Canc elled via OM: Order cancelled - Patient discharged Performed By: #### L 100.0100, L500.2500 ####[facility] [address] [place], [address] WBC Normal 4.4-11.0 [facility] Comment on above: Result Comment: Canc elled via OM: Order cancelled - Patient discharged Performed By: #### L 100.0100, L500.2500 ####[facility] [address] [place], [address] Basic Metabolic Profile (BMP )on 01-30-2025 BUN Normal 4-19 [facility] Comment on above: Result Comment: Canc elled via OM: Order cancelled - Patient discharged Performed By: #### L 100.0100, L500.2500 ####[facility] [address] [place], [address] BUN/CRE Normal 10-20 [facility] Comment on above: Result Comment: Canc elled via OM: Order cancelled - Patient discharged Performed By: #### L 100.0100, L500.2500 ####[facility] [address] [place], [address] Calcium Normal 7.6-11.0 [facility] Comment on above: Result Comment: Canc elled via OM: Order cancelled - Patient discharged Performed By: #### L 100.0100, L500.2500 ####[facility] [address] [place], [address] CL Normal 98-108 [facility] Comment on above: Result Comment: Canc elled via OM: Order cancelled - Patient discharged Performed By: #### L 100.0100, L500.2500 ####[facility] [address] [place], [address] CO2 Normal 21.0-32.0 [facility] Comment on above: Result Comment: Canc elled via OM: Order cancelled - Patient discharged Performed By: #### L 100.0100, L500.2500 ####[facility] [address] [place], [address] CREAT,SERUM Normal 0.70-1.20 [facility] Comment on above: Result Comment: Canc elled via OM: Order cancelled - Patient discharged Performed By: #### L 100.0100, L500.2500 ####[facility] [address] [place], [address] eGFR Normal >60 [facility] Comment on above: Result Comment: Canc elled via OM: Order cancelled - Patient discharged Performed By: #### L 100.0100, L500.2500 ####[facility] [address] [place], [address] GAP Normal 5-15 [facility] Comment on above: Result Comment: Canc elled via OM: Order cancelled - Patient discharged Performed By: #### L 100.0100, L500.2500 ####[facility] [address] [place], [address] GLU Normal 70-99 [facility] Comment on above: Result Comment: Canc elled via OM: Order cancelled - Patient discharged Performed By: #### L 100.0100, L500.2500 ####[facility] [address] [place], [address] Potassium Normal 3.3-5.1 [facility] Comment on above: Result Comment: Canc elled via OM: Order cancelled - Patient discharged Performed By: #### L 100.0100, L500.2500 ####[facility] [address] [place], [address] Basic Metabolic Profile (BMP) Normal 133-145 [facility] Comment on above: Result Comment: Canc elled via OM: Order cancelled - Patient discharged Performed By: #### L 100.0100, L500.2500 ####[facility] [address] [place], [address] CBC W/Diff, Automatedon 06-0 -2024 Absolute Neut Normal 2.0-7.7 [facility] Comment on above: Result Comment: Canc elled via OM: Order cancelled - Patient discharged Performed By: #### L 100.0100, L500.2500 ####[facility] [address] [place], [address] HCT Normal 37-47 [facility] Comment on above: Result Comment: Canc elled via OM: Order cancelled - Patient discharged Performed By: #### L 100.0100, L500.2500 ####[facility] [address] [place], [address] HGB Normal 12.0-15.0 [facility] Comment on above: Result Comment: Canc elled via OM: Order cancelled - Patient discharged Performed By: #### L 100.0100, L500.2500 ####[facility] [address] [place], [address] MCH Normal 27.0-32.0 [facility] Comment on above: Result Comment: Canc elled via OM: Order cancelled - Patient discharged Performed By: #### L 100.0100, L500.2500 ####[facility] [address] [place], [address] MCHC Normal 32-36 [facility] Comment on above: Result Comment: Canc elled via OM: Order cancelled - Patient discharged Performed By: #### L 100.0100, L500.2500 ####[facility] [address] [place], [address] MCV Normal 81-99 [facility] Comment on above: Result Comment: Canc elled via OM: Order cancelled - Patient discharged Performed By: #### L 100.0100, L500.2500 ####[facility] [address] [place], [address] NEUT% Normal 47-70 [facility] Comment on above: Result Comment: Canc elled via OM: Order cancelled - Patient discharged Performed By: #### L 100.0100, L500.2500 ####[facility] [address] [place], [address] PLT Normal 150-450 [facility] Comment on above: Result Comment: Canc elled via OM: Order cancelled - Patient discharged Performed By: #### L 100.0100, L500.2500 ####[facility] [address] [place], [address] RBC Normal 4.2-5.4 [facility] Comment on above: Result Comment: Canc elled via OM: Order cancelled - Patient discharged Performed By: #### L 100.0100, L500.2500 ####[facility] [address] [place], [address] RDW CV Normal 11.6-14.6 [facility] Comment on above: Result Comment: Canc elled via OM: Order cancelled - Patient discharged Performed By: #### L 100.0100, L500.2500 ####[facility] [address] [place], [address] RDW SD Normal 35.1-43.9 [facility] Comment on above: Result Comment: Canc elled via OM: Order cancelled - Patient discharged Performed By: #### L 100.0100, L500.2500 ####[facility] [address] [place], [address] WBC Normal 4.4-11.0 [facility] Comment on above: Result Comment: Canc elled via OM: Order cancelled - Patient discharged Performed By: #### L 100.0100, L500.2500 ####[facility] [address] [place], [address] Basic Metabolic Profile (BMP )on 01-29-2025 BUN Normal 4-19 [facility] Comment on above: Result Comment: Canc elled via OM: Order cancelled - Patient discharged Performed By: #### L 100.0100, L500.2500 ####[facility] [address] [place], [address] BUN/CRE Normal 10-20 [facility] Comment on above: Result Comment: Canc elled via OM: Order cancelled - Patient discharged Performed By: #### L 100.0100, L500.2500 ####[facility] [address] [place], [address] Calcium Normal 7.6-11.0 [facility] Comment on above: Result Comment: Canc elled via OM: Order cancelled - Patient discharged Performed By: #### L 100.0100, L500.2500 ####[facility] [address] [place], [address] CL Normal 98-108 [facility] Comment on above: Result Comment: Canc elled via OM: Order cancelled - Patient discharged Performed By: #### L 100.0100, L500.2500 ####[facility] [address] [place], [address] CO2 Normal 21.0-32.0 [facility] Comment on above: Result Comment: Canc elled via OM: Order cancelled - Patient discharged Performed By: #### L 100.0100, L500.2500 ####[facility] [address] [place], [address] CREAT,SERUM Normal 0.70-1.20 [facility] Comment on above: Result Comment: Canc elled via OM: Order cancelled - Patient discharged Performed By: #### L 100.0100, L500.2500 ####[facility] [address] [place], [address] eGFR Normal >60 [facility] Comment on above: Result Comment: Canc elled via OM: Order cancelled - Patient discharged Performed By: #### L 100.0100, L500.2500 ####[facility] [address] [place], [address] GAP Normal 5-15 [facility] Comment on above: Result Comment: Canc elled via OM: Order cancelled - Patient discharged Performed By: #### L 100.0100, L500.2500 ####[facility] [address] [place], [address] GLU Normal 70-99 [facility] Comment on above: Result Comment: Canc elled via OM: Order cancelled - Patient discharged Performed By: #### L 100.0100, L500.2500 ####[facility] [address] [place], [address] Potassium Normal 3.3-5.1 [facility] Comment on above: Result Comment: Canc elled via OM: Order cancelled - Patient discharged Performed By: #### L 100.0100, L500.2500 ####[facility] [address] [place], [address] Basic Metabolic Profile (BMP) Normal 133-145 [facility] Comment on above: Result Comment: Canc elled via OM: Order cancelled - Patient discharged Performed By: #### L 100.0100, L500.2500 ####[facility] [address] [place], [address] CBC W/Diff, Automatedon 06-0 -2024 Absolute Neut Normal 2.0-7.7 [facility] Comment on above: Result Comment: Canc elled via OM: Order cancelled - Patient discharged Performed By: #### L 100.0100, L500.2500 ####[facility] [address] [place], [address] HCT Normal 37-47 [facility] Comment on above: Result Comment: Canc elled via OM: Order cancelled - Patient discharged Performed By: #### L 100.0100, L500.2500 ####[facility] [address] [place], [address] HGB Normal 12.0-15.0 [facility] Comment on above: Result Comment: Canc elled via OM: Order cancelled - Patient discharged Performed By: #### L 100.0100, L500.2500 ####[facility] [address] [place], [address] MCH Normal 27.0-32.0 [facility] Comment on above: Result Comment: Canc elled via OM: Order cancelled - Patient discharged Performed By: #### L 100.0100, L500.2500 ####[facility] [address] [place], [address] MCHC Normal 32-36 [facility] Comment on above: Result Comment: Canc elled via OM: Order cancelled - Patient discharged Performed By: #### L 100.0100, L500.2500 ####[facility] [address] [place], [address] MCV Normal 81-99 [facility] Comment on above: Result Comment: Canc elled via OM: Order cancelled - Patient discharged Performed By: #### L 100.0100, L500.2500 ####[facility] [address] [place], [address] NEUT% Normal 47-70 [facility] Comment on above: Result Comment: Canc elled via OM: Order cancelled - Patient discharged Performed By: #### L 100.0100, L500.2500 ####[facility] [address] [place], [address] PLT Normal 150-450 [facility] Comment on above: Result Comment: Canc elled via OM: Order cancelled - Patient discharged Performed By: #### L 100.0100, L500.2500 ####[facility] [address] [place], [address] RBC Normal 4.2-5.4 [facility] Comment on above: Result Comment: Canc elled via OM: Order cancelled - Patient discharged Performed By: #### L 100.0100, L500.2500 ####[facility] [address] [place], [address] RDW CV Normal 11.6-14.6 [facility] Comment on above: Result Comment: Canc elled via OM: Order cancelled - Patient discharged Performed By: #### L 100.0100, L500.2500 ####[facility] [address] [place], [address] RDW SD Normal 35.1-43.9 [facility] Comment on above: Result Comment: Canc elled via OM: Order cancelled - Patient discharged Performed By: #### L 100.0100, L500.2500 ####[facility] [address] [place], [address] WBC Normal 4.4-11.0 [facility] Comment on above: Result Comment: Canc elled via OM: Order cancelled - Patient discharged Performed By: #### L 100.0100, L500.2500 ####[facility] [address] [place], [address] Basic Metabolic Profile (BMP )on 01-28-2025 BUN Normal 4-19 [facility] Comment on above: Result Comment: Canc elled via OM: Order cancelled - Patient discharged Performed By: #### L 100.0100, L500.2500 ####[facility] [address] [place], [address] BUN/CRE Normal 10-20 [facility] Comment on above: Result Comment: Canc elled via OM: Order cancelled - Patient discharged Performed By: #### L 100.0100, L500.2500 ####[facility] [address] [place], [address] Calcium Normal 7.6-11.0 [facility] Comment on above: Result Comment: Canc elled via OM: Order cancelled - Patient discharged Performed By: #### L 100.0100, L500.2500 ####[facility] [address] [place], [address] CL Normal 98-108 [facility] Comment on above: Result Comment: Canc elled via OM: Order cancelled - Patient discharged Performed By: #### L 100.0100, L500.2500 ####[facility] [address] [place], [address] CO2 Normal 21.0-32.0 [facility] Comment on above: Result Comment: Canc elled via OM: Order cancelled - Patient discharged Performed By: #### L 100.0100, L500.2500 ####[facility] [address] [place], [address] CREAT,SERUM Normal 0.70-1.20 [facility] Comment on above: Result Comment: Canc elled via OM: Order cancelled - Patient discharged Performed By: #### L 100.0100, L500.2500 ####[facility] [address] [place], [address] eGFR Normal >60 [facility] Comment on above: Result Comment: Canc elled via OM: Order cancelled - Patient discharged Performed By: #### L 100.0100, L500.2500 ####[facility] [address] [place], [address] GAP Normal 5-15 [facility] Comment on above: Result Comment: Canc elled via OM: Order cancelled - Patient discharged Performed By: #### L 100.0100, L500.2500 ####[facility] [address] [place], [address] GLU Normal 70-99 [facility] Comment on above: Result Comment: Canc elled via OM: Order cancelled - Patient discharged Performed By: #### L 100.0100, L500.2500 ####[facility] [address] [place], [address] Potassium Normal 3.3-5.1 [facility] Comment on above: Result Comment: Canc elled via OM: Order cancelled - Patient discharged Performed By: #### L 100.0100, L500.2500 ####[facility] [address] [place], [address] Basic Metabolic Profile (BMP) Normal 133-145 [facility] Comment on above: Result Comment: Canc elled via OM: Order cancelled - Patient discharged Performed By: #### L 100.0100, L500.2500 ####[facility] [address] [place], [address] CBC W/Diff, Automatedon 06-0 -2024 Absolute Neut Normal 2.0-7.7 [facility] Comment on above: Result Comment: Canc elled via OM: Order cancelled - Patient discharged Performed By: #### L 100.0100, L500.2500 ####[facility] [address] [place], [address] HCT Normal 37-47 [facility] Comment on above: Result Comment: Canc elled via OM: Order cancelled - Patient discharged Performed By: #### L 100.0100, L500.2500 ####[facility] [address] [place], [address] HGB Normal 12.0-15.0 [facility] Comment on above: Result Comment: Canc elled via OM: Order cancelled - Patient discharged Performed By: #### L 100.0100, L500.2500 ####[facility] [address] [place], [address] MCH Normal 27.0-32.0 [facility] Comment on above: Result Comment: Canc elled via OM: Order cancelled - Patient discharged Performed By: #### L 100.0100, L500.2500 ####[facility] [address] [place], [address] MCHC Normal 32-36 [facility] Comment on above: Result Comment: Canc elled via OM: Order cancelled - Patient discharged Performed By: #### L 100.0100, L500.2500 ####[facility] [address] [place], [address] MCV Normal 81-99 [facility] Comment on above: Result Comment: Canc elled via OM: Order cancelled - Patient discharged Performed By: #### L 100.0100, L500.2500 ####[facility] [address] [place], [address] NEUT% Normal 47-70 [facility] Comment on above: Result Comment: Canc elled via OM: Order cancelled - Patient discharged Performed By: #### L 100.0100, L500.2500 ####[facility] [address] [place], [address] PLT Normal 150-450 [facility] Comment on above: Result Comment: Canc elled via OM: Order cancelled - Patient discharged Performed By: #### L 100.0100, L500.2500 ####[facility] [address] [place], [address] RBC Normal 4.2-5.4 [facility] Comment on above: Result Comment: Canc elled via OM: Order cancelled - Patient discharged Performed By: #### L 100.0100, L500.2500 ####[facility] [address] [place], [address] RDW CV Normal 11.6-14.6 [facility] Comment on above: Result Comment: Canc elled via OM: Order cancelled - Patient discharged Performed By: #### L 100.0100, L500.2500 ####[facility] [address] [place], [address] RDW SD Normal 35.1-43.9 [facility] Comment on above: Result Comment: Canc elled via OM: Order cancelled - Patient discharged Performed By: #### L 100.0100, L500.2500 ####[facility] [address] [place], [address] WBC Normal 4.4-11.0 [facility] Comment on above: Result Comment: Canc elled via OM: Order cancelled - Patient discharged Performed By: #### L 100.0100, L500.2500 ####[facility] [address] [place], [address] Basic Metabolic Profile (BMP )on 01-27-2025 BUN Normal 4-19 [facility] Comment on above: Result Comment: Canc elled via OM: Order cancelled - Patient discharged Performed By: #### L 500.2500, L100.0100 ####[facility] [address] [place], [address] BUN/CRE Normal 10-20 [facility] Comment on above: Result Comment: Canc elled via OM: Order cancelled - Patient discharged Performed By: #### L 500.2500, L100.0100 ####[facility] [address] [place], [address] Calcium Normal 7.6-11.0 [facility] Comment on above: Result Comment: Canc elled via OM: Order cancelled - Patient discharged Performed By: #### L 500.2500, L100.0100 ####[facility] [address] [place], [address] CL Normal 98-108 [facility] Comment on above: Result Comment: Canc elled via OM: Order cancelled - Patient discharged Performed By: #### L 500.2500, L100.0100 ####[facility] [address] [place], [address] CO2 Normal 21.0-32.0 [facility] Comment on above: Result Comment: Canc elled via OM: Order cancelled - Patient discharged Performed By: #### L 500.2500, L100.0100 ####[facility] [address] [place], [address] CREAT,SERUM Normal 0.70-1.20 [facility] Comment on above: Result Comment: Canc elled via OM: Order cancelled - Patient discharged Performed By: #### L 500.2500, L100.0100 ####[facility] [address] [place], [address] eGFR Normal >60 [facility] Comment on above: Result Comment: Canc elled via OM: Order cancelled - Patient discharged Performed By: #### L 500.2500, L100.0100 ####[facility] [address] [place], [address] GAP Normal 5-15 [facility] Comment on above: Result Comment: Canc elled via OM: Order cancelled - Patient discharged Performed By: #### L 500.2500, L100.0100 ####[facility] [address] [place], [address] GLU Normal 70-99 [facility] Comment on above: Result Comment: Canc elled via OM: Order cancelled - Patient discharged Performed By: #### L 500.2500, L100.0100 ####[facility] [address] [place], [address] Potassium Normal 3.3-5.1 [facility] Comment on above: Result Comment: Canc elled via OM: Order cancelled - Patient discharged Performed By: #### L 500.2500, L100.0100 ####[facility] [address] [place], [address] Basic Metabolic Profile (BMP) Normal 133-145 [facility] Comment on above: Result Comment: Canc elled via OM: Order cancelled - Patient discharged Performed By: #### L 500.2500, L100.0100 ####[facility] [address] [place], [address] Bedside Glucoseon 01-27-2025 FINGERSTICK GLU 350 mg/dL High 74-106 [facility] Comment on above: Result Comment: EDGAR GEMENT OF PATIENT CARE PER NURSING PROTOCOL Performed By: #### L 501.080 ####[facility] [address] [place], [address] FINGERSTICK GLU 322 mg/dL High 74-106 [facility] Comment on above: Result Comment: EDGAR GEMENT OF PATIENT CARE PER NURSING PROTOCOL Performed By: #### L 501.080 ####[facility] [address] [place], [address] FINGERSTICK GLU 340 mg/dL High 74-106 [facility] Comment on above: Result Comment: EDGAR GEMENT OF PATIENT CARE PER NURSING PROTOCOL Performed By: #### L 501.080 ####[facility] [address] [place], [address] CBC W/Diff, Automatedon 06-0 Absolute Neut Normal 2.0-7.7 [facility] Comment on above: Result Comment: Canc elled via OM: Order cancelled - Patient discharged Performed By: #### L 500.2500, L100.0100 ####[facility] [address] [place], [address] HCT Normal 37-47 [facility] Comment on above: Result Comment: Canc elled via OM: Order cancelled - Patient discharged Performed By: #### L 500.2500, L100.0100 ####[facility] [address] [place], [address] HGB Normal 12.0-15.0 [facility] Comment on above: Result Comment: Canc elled via OM: Order cancelled - Patient discharged Performed By: #### L 500.2500, L100.0100 ####[facility] [address] [place], [address] MCH Normal 27.0-32.0 [facility] Comment on above: Result Comment: Canc elled via OM: Order cancelled - Patient discharged Performed By: #### L 500.2500, L100.0100 ####[facility] [address] [place], [address] MCHC Normal 32-36 [facility] Comment on above: Result Comment: Canc elled via OM: Order cancelled - Patient discharged Performed By: #### L 500.2500, L100.0100 ####[facility] [address] [place], [address] MCV Normal 81-99 [facility] Comment on above: Result Comment: Canc elled via OM: Order cancelled - Patient discharged Performed By: #### L 500.2500, L100.0100 ####[facility] [address] [place], [address] NEUT% Normal 47-70 [facility] Comment on above: Result Comment: Canc elled via OM: Order cancelled - Patient discharged Performed By: #### L 500.2500, L100.0100 ####[facility] [address] [place], [address] PLT Normal 150-450 [facility] Comment on above: Result Comment: Canc elled via OM: Order cancelled - Patient discharged Performed By: #### L 500.2500, L100.0100 ####[facility] [address] [place], [address] RBC Normal 4.2-5.4 [facility] Comment on above: Result Comment: Canc elled via OM: Order cancelled - Patient discharged Performed By: #### L 500.2500, L100.0100 ####[facility] [address] [place], [address] RDW CV Normal 11.6-14.6 [facility] Comment on above: Result Comment: Canc elled via OM: Order cancelled - Patient discharged Performed By: #### L 500.2500, L100.0100 ####[facility] [address] [place], [address] RDW SD Normal 35.1-43.9 [facility] Comment on above: Result Comment: Canc elled via OM: Order cancelled - Patient discharged Performed By: #### L 500.2500, L100.0100 ####[facility] [address] [place], [address] WBC Normal 4.4-11.0 [facility] Comment on above: Result Comment: Canc elled via OM: Order cancelled - Patient discharged Performed By: #### L 500.2500, L100.0100 ####[facility] [address] [place], [address] Office Visiton 01-27-2025 Follow-up visit [id number] Kathleen Villa 1995 F Date Provider Department Center 01/27/2025 Monica-MISHEL ORTEZ [facility] None Family History Problem Relation Age of Onset Anxiety disorder Mother Multiple sclerosis Father Psoriasis Father Family Status - Relation Status Age at Mother Alive Father Alive Level of Service:50923 ME OFFICE/OUTPATIENT ESTABLISHED MOD MDM 30 MIN Reason for Visit and Comments: Skin Lesion [[id number]] - (PKN) Normal [facility] Progress Noteon 01-27-2025 Progress Note DATE OF SERVICE: 01/27/2025 PATIENT NAME: Kathleen Villa : 1995 AGE: 29 y.o. CLINIC NUMBER: [id number] Visit type: Established patient Chief Complaint Patient [...] Adhesive? Yes- adhesives. Social History: Born/raised in [place]. Excessive sun exposure: Yes Used tanning beds: [...] exposure. Patien (more content not included)... Normal [facility] Basic Metabolic Profile (BMP )on 01-26-2025 BUN/CRE 7.8 RATIO Low 10-20 [facility] Comment on above: Performed By: #### L 500.2500, L100.0100 ####[facility] [address] [place], [address] Calcium [Mass/Vol] 8.5 mg/dL Normal 7.6-11.0 [facility] Comment on above: Performed By: #### L 500.2500, L100.0100 ####[facility] [address] [place], [address] Chloride [Moles/Vol] 97 mmol/L Low 98-108 [facility] Comment on above: Performed By: #### L 500.2500, L100.0100 ####[facility] [address] [place], [address] CO2 [Moles/Vol] 12.9 mmol/L Low 21.0-32.0 [facility] Comment on above: Performed By: #### L 500.2500, L100.0100 ####[facility] [address] [place], [address] Creatinine [Mass/Vol] 0.76 mg/dL Normal 0.70-1.20 [facility] Comment on above: Performed By: #### L 500.2500, L100.0100 ####[facility] [address] [place], [address] ECRCL 109.19 ml/min Normal 50-250 [facility] Comment on above: Performed By: #### L 500.2500, L100.0100 ####[facility] [address] [place], [address] GAP 24 High 5-15 [facility] Comment on above: Performed By: #### L 500.2500, L100.0100 ####[facility] [address] [place], [address] GFR/1.73 sq M.predicted among non-blacks MDRD (S/P/Bld) [Vol rate/Area] 109 mL/min/{1.73_m2} Normal >60 [facility] Comment on above: Result Comment: mL/m in/1.73m2 CKD-EPI Creatinine Equation (2020) Performed By: #### L 500.2500, L100.0100 ####[facility] [address] [place], [address] Glucose [Mass/Vol] 315 mg/dL High 70-99 [facility] Comment on above: Performed By: #### L 500.2500, L100.0100 ####[facility] [address] [place], [address] Potassium [Moles/Vol] 3.0 mmol/L Low 3.3-5.1 [facility] Comment on above: Performed By: #### L 500.2500, L100.0100 ####[facility] [address] [place], [address] Sodium [Moles/Vol] 133 mmol/L Normal 133-145 [facility] Comment on above: Performed By: #### L 500.2500, L100.0100 ####[facility] [address] [place], [address] Urea nitrogen [Mass/Vol] 6 mg/dL Normal 4-19 [facility] Comment on above: Performed By: #### L 500.2500, L100.0100 ####[facility] [address] [place], [address] Bedside Glucoseon 01-26-2024 FINGERSTICK GLU 328 mg/dL High 74-106 [facility] Comment on above: Result Comment: EDGAR GEMENT OF PATIENT CARE PER NURSING PROTOCOL Performed By: #### L 501.080 ####[facility] [address] [place], [address] FINGERSTICK GLU 306 mg/dL High 74-106 [facility] Comment on above: Result Comment: EDGAR GEMENT OF PATIENT CARE PER NURSING PROTOCOL Performed By: #### L 501.080 ####[facility] [address] [place], [address] CBC W/Diff, Automatedon 06-0 Absolute Lymph 1.50 X10 3/uL Normal 0.83-4.51 [facility] Comment on above: Performed By: #### L 500.2500, L100.0100 ####[facility] [address] [place], [address] Absolute Neut 13.5 X10 3/uL High 2.0-7.7 [facility] Comment on above: Performed By: #### L 500.2500, L100.0100 ####[facility] [address] [place], [address] Basophils/100 WBC (Bld) 0.3 % Normal 0-1 [facility] Comment on above: Performed By: #### L 500.2500, L100.0100 ####[facility] [address] [place], [address] Eosinophils/100 WBC (Bld) 0.0 % Normal 0-5 [facility] Comment on above: Performed By: #### L 500.2500, L100.0100 ####[facility] [address] [place], [address] Erythrocyte distribution width (RBC) [Ratio] 13.1 % Normal 11.6-14.6 [facility] Comment on above: Performed By: #### L 500.2500, L100.0100 ####[facility] [address] [place], [address] Hematocrit (Bld) [Volume fraction] 38.8 % Normal 37-47 [facility] Comment on above: Performed By: #### L 500.2500, L100.0100 ####[facility] [address] [place], [address] Hemoglobin (Bld) [Mass/Vol] 13.4 g/dL Normal 12.0-15.0 [facility] Comment on above: Performed By: #### L 500.2500, L100.0100 ####[facility] [address] [place], [address] IG% 1.300 High 0.0-0.9 [facility] Comment on above: Result Comment: IG% - Immature Granulocytes (promyelocytes, myelocytes andmetamyelocytes) > 1% indicates that a LEFT SHIFT is Present. Performed By: #### L 500.2500, L100.0100 ####[facility] [address] [place], [address] Lymphocytes/100 WBC (Bld) 9.3 % Low 19-41 [facility] Comment on above: Performed By: #### L 500.2500, L100.0100 ####[facility] [address] [place], [address] MCH (RBC) [Entitic mass] 30.0 pg Normal 27.0-32.0 [facility] Comment on above: Performed By: #### L 500.2500, L100.0100 ####[facility] [address] [place], [address] MCHC (RBC) [Mass/Vol] 34.5 g/dL Normal 32-36 [facility] Comment on above: Performed By: #### L 500.2500, L100.0100 ####[facility] [address] [place], [address] MCV (RBC) [Entitic vol] 86.8 fL Normal 81-99 [facility] Comment on above: Performed By: #### L 500.2500, L100.0100 ####[facility] [address] [place], [address] Monocytes/100 WBC (Bld) 5.2 % Normal 0-10 [facility] Comment on above: Performed By: #### L 500.2500, L100.0100 ####[facility] [address] [place], [address] Neutrophils/100 WBC (Bld) 83.9 % High 47-70 [facility] Comment on above: Performed By: #### L 500.2500, L100.0100 ####[facility] [address] [place], [address] Nucleated RBC (Bld) [#/Vol] 0 10*3/uL Normal 0-5 [facility] Comment on above: Performed By: #### L 500.2500, L100.0100 ####[facility] [address] [place], [address] Platelet mean volume (Bld) [Entitic vol] 11.5 fL Normal 6.2-12.0 [facility] Comment on above: Performed By: #### L 500.2500, L100.0100 ####[facility] [address] [place], [address] Platelets (Bld) [#/Vol] 169 10*3/uL Normal 150-450 [facility] Comment on above: Performed By: #### L 500.2500, L100.0100 ####[facility] [address] [place], [address] RBC (Bld) [#/Vol] 4.47 10*6/uL Normal 4.2-5.4 [facility] Comment on above: Performed By: #### L 500.2500, L100.0100 ####[facility] [address] [place], [address] RDW SD 41.1 fl Normal 35.1-43.9 [facility] Comment on above: Performed By: #### L 500.2500, L100.0100 ####[facility] [address] [place], [address] WBC (Bld) [#/Vol] 16.1 10*3/uL High 4.4-11.0 [facility] Comment on above: Performed By: #### L 500.2500, L100.0100 ####[facility] [address] [place], [address] Discharge Instructionon 06-0 Discharge Instruction Normal [facility] Basic Metabolic Profile (BMP )on 01-25-2025 BUN/CRE 8.0 RATIO Low 10-20 [facility] Comment on above: Performed By: #### L 500.2500, L100.0100 ####[facility] [address] [place], [address] Calcium [Mass/Vol] 8.1 mg/dL Normal 7.6-11.0 [facility] Comment on above: Performed By: #### L 500.2500, L100.0100 ####[facility] [address] [place], [address] Chloride [Moles/Vol] 100 mmol/L Normal 98-108 [facility] Comment on above: Performed By: #### L 500.2500, L100.0100 ####[facility] [address] [place], [address] CO2 [Moles/Vol] 14.7 mmol/L Low 21.0-32.0 [facility] Comment on above: Performed By: #### L 500.2500, L100.0100 ####[facility] [address] [place], [address] Creatinine [Mass/Vol] 0.66 mg/dL Low 0.70-1.20 [facility] Comment on above: Performed By: #### L 500.2500, L100.0100 ####[facility] [address] [place], [address] ECRCL 125.73 ml/min Normal 50-250 [facility] Comment on above: Performed By: #### L 500.2500, L100.0100 ####[facility] [address] [place], [address] GAP 22 High 5-15 [facility] Comment on above: Performed By: #### L 500.2500, L100.0100 ####[facility] [address] [place], [address] GFR/1.73 sq M.predicted among non-blacks MDRD (S/P/Bld) [Vol rate/Area] 121 mL/min/{1.73_m2} Normal >60 [facility] Comment on above: Result Comment: mL/m in/1.73m2 CKD-EPI Creatinine Equation (2020) Performed By: #### L 500.2500, L100.0100 ####[facility] [address] [place], [address] Glucose [Mass/Vol] 287 mg/dL High 70-99 [facility] Comment on above: Performed By: #### L 500.2500, L100.0100 ####[facility] [address] [place], [address] Potassium [Moles/Vol] 2.9 mmol/L Low 3.3-5.1 [facility] Comment on above: Performed By: #### L 500.2500, L100.0100 ####[facility] [address] [place], [address] Sodium [Moles/Vol] 136 mmol/L Normal 133-145 [facility] Comment on above: Performed By: #### L 500.2500, L100.0100 ####[facility] [address] [place], [address] Urea nitrogen [Mass/Vol] 5 mg/dL Normal 4-19 [facility] Comment on above: Performed By: #### L 500.2500, L100.0100 ####[facility] [address] [place], [address] Bedside Glucoseon --2024 FINGERSTICK GLU 352 mg/dL High 74-106 [facility] Comment on above: Result Comment: EDGAR GEMENT OF PATIENT CARE PER NURSING PROTOCOL Performed By: #### L 501.080 ####[facility] [address] [place], [address] FINGERSTICK GLU 220 mg/dL High 74-106 [facility] Comment on above: Result Comment: EDGAR GEMENT OF PATIENT CARE PER NURSING PROTOCOL Performed By: #### L 501.080 ####[facility] [address] [place], [address] CBC W/Diff, Automatedon 05- Absolute Lymph 1.08 X10 3/uL Normal 0.83-4.51 [facility] Comment on above: Performed By: #### L 500.2500, L100.0100 ####[facility] [address] [place], [address] Absolute Neut 19.8 X10 3/uL High 2.0-7.7 [facility] Comment on above: Performed By: #### L 500.2500, L100.0100 ####[facility] [address] [place], [address] Basophils/100 WBC (Bld) 0.2 % Normal 0-1 [facility] Comment on above: Performed By: #### L 500.2500, L100.0100 ####[facility] [address] [place], [address] Eosinophils/100 WBC (Bld) 0.0 % Normal 0-5 [facility] Comment on above: Performed By: #### L 500.2500, L100.0100 ####[facility] [address] [place], [address] Erythrocyte distribution width (RBC) [Ratio] 12.9 % Normal 11.6-14.6 [facility] Comment on above: Performed By: #### L 500.2500, L100.0100 ####[facility] [address] [place], [address] Hematocrit (Bld) [Volume fraction] 32.9 % Low 37-47 [facility] Comment on above: Performed By: #### L 500.2500, L100.0100 ####[facility] [address] [place], [address] Hemoglobin (Bld) [Mass/Vol] 11.3 g/dL Low 12.0-15.0 [facility] Comment on above: Performed By: #### L 500.2500, L100.0100 ####[facility] [address] [place], [address] IG% 1.100 High 0.0-0.9 [facility] Comment on above: Result Comment: IG% - Immature Granulocytes (promyelocytes, myelocytes andmetamyelocytes) > 1% indicates that a LEFT SHIFT is Present. Performed By: #### L 500.2500, L100.0100 ####[facility] [address] [place], [address] Lymphocytes/100 WBC (Bld) 4.8 % Low 19-41 [facility] Comment on above: Performed By: #### L 500.2500, L100.0100 ####[facility] [address] [place], [address] MCH (RBC) [Entitic mass] 29.7 pg Normal 27.0-32.0 [facility] Comment on above: Performed By: #### L 500.2500, L100.0100 ####[facility] [address] [place], [address] MCHC (RBC) [Mass/Vol] 34.3 g/dL Normal 32-36 [facility] Comment on above: Performed By: #### L 500.2500, L100.0100 ####[facility] [address] [place], [address] MCV (RBC) [Entitic vol] 86.6 fL Normal 81-99 [facility] Comment on above: Performed By: #### L 500.2500, L100.0100 ####[facility] [address] [place], [address] Monocytes/100 WBC (Bld) 6.8 % Normal 0-10 [facility] Comment on above: Performed By: #### L 500.2500, L100.0100 ####[facility] [address] [place], [address] Neutrophils/100 WBC (Bld) 87.1 % High 47-70 [facility] Comment on above: Performed By: #### L 500.2500, L100.0100 ####[facility] [address] [place], [address] Nucleated RBC (Bld) [#/Vol] 0 10*3/uL Normal 0-5 [facility] Comment on above: Performed By: #### L 500.2500, L100.0100 ####[facility] [address] [place], [address] Platelet mean volume (Bld) [Entitic vol] 12.0 fL Normal 6.2-12.0 [facility] Comment on above: Performed By: #### L 500.2500, L100.0100 ####[facility] [address] [place], [address] Platelets (Bld) [#/Vol] 129 10*3/uL Low 150-450 [facility] Comment on above: Performed By: #### L 500.2500, L100.0100 ####[facility] [address] [place], [address] RBC (Bld) [#/Vol] 3.80 10*6/uL Low 4.2-5.4 [facility] Comment on above: Performed By: #### L 500.2500, L100.0100 ####[facility] [address] [place], [address] RDW SD 40.6 fl Normal 35.1-43.9 [facility] Comment on above: Performed By: #### L 500.2500, L100.0100 ####[facility] [address] [place], [address] WBC (Bld) [#/Vol] 22.7 10*3/uL High 4.4-11.0 [facility] Comment on above: Performed By: #### L 500.2500, L100.0100 ####[facility] [address] [place], [address] Magnesiumon 01-25-2025 Magnesium [Mass/Vol] 1.6 mg/dL Normal 1.5-2.2 [facility] Comment on above: Performed By: #### L 501.5200, L501.2300 ####[facility] [address] [place], [address] Phosphoruson 01-25-2025 Phosphate [Mass/Vol] 2.1 mg/dL Low 2.7-4.5 [facility] Comment on above: Performed By: #### L 501.5200, L501.2300 ####[facility] [address] [place], [address] Basic Metabolic Profile (BMP )on 01-24-2025 BUN/CRE 6.3 RATIO Low 10-20 [facility] Comment on above: Performed By: #### L 500.2500 ####[facility] [address] [place], [address] Calcium [Mass/Vol] 7.6 mg/dL Normal 7.6-11.0 [facility] Comment on above: Performed By: #### L 500.2500 ####[facility] [address] [place], [address] Chloride [Moles/Vol] 111 mmol/L High 98-108 [facility] Comment on above: Performed By: #### L 500.2500 ####[facility] [address] [place], [address] CO2 [Moles/Vol] 18.8 mmol/L Low 21.0-32.0 [facility] Comment on above: Performed By: #### L 500.2500 ####[facility] [address] [place], [address] Creatinine [Mass/Vol] 0.64 mg/dL Low 0.70-1.20 [facility] Comment on above: Performed By: #### L 500.2500 ####[facility] [address] [place], [address] ECRCL 129.66 ml/min Normal 50-250 [facility] Comment on above: Performed By: #### L 500.2500 ####[facility] [address] [place], [address] GAP 6 Normal 5-15 [facility] Comment on above: Performed By: #### L 500.2500 ####[facility] [address] [place], [address] GFR/1.73 sq M.predicted among non-blacks MDRD (S/P/Bld) [Vol rate/Area] 122 mL/min/{1.73_m2} Normal >60 [facility] Comment on above: Result Comment: mL/m in/1.73m2 CKD-EPI Creatinine Equation (2020) Performed By: #### L 500.2500 ####[facility] [address] [place], [address] Glucose [Mass/Vol] 182 mg/dL High 70-99 [facility] Comment on above: Performed By: #### L 500.2500 ####[facility] [address] [place], [address] Potassium [Moles/Vol] 3.9 mmol/L Normal 3.3-5.1 [facility] Comment on above: Performed By: #### L 500.2500 ####[facility] [address] [place], [address] Sodium [Moles/Vol] 136 mmol/L Normal 133-145 [facility] Comment on above: Performed By: #### L 500.2500 ####[facility] [address] [place], [address] Urea nitrogen [Mass/Vol] 4 mg/dL Normal 4-19 [facility] Comment on above: Performed By: #### L 500.2500 ####[facility] [address] [place], [address] CO2 [Moles/Vol] 9.9 mmol/L Invalid Interpretation Code [...] Performed By: #### L 500.2500 ####[facility] [address] [place], [address] BUN/CRE 8.6 RATIO Low 10-20 [facility] Comment on above: Order Comment: Call MD with results STAT Performed By: #### L 500.2500 ####[facility] [address] [place], [address] Calcium [Mass/Vol] 7.8 mg/dL Normal 7.6-11.0 [facility] Comment on above: Order Comment: Call MD with results STAT Performed By: #### L 500.2500 ####[facility] [address] [place], [address] Chloride [Moles/Vol] 113 mmol/L High 98-108 [facility] Comment on above: Order Comment: Call MD with results STAT Performed By: #### L 500.2500 ####[facility] [address] [place], [address] CO2 [Moles/Vol] 18.6 mmol/L Low 21.0-32.0 [facility] Comment on above: Order Comment: Call MD with results STAT Performed By: #### L 500.2500 ####[facility] [address] [place], [address] Creatinine [Mass/Vol] 0.65 mg/dL Low 0.70-1.20 [facility] Comment on above: Order Comment: Call MD with results STAT Performed By: #### L 500.2500 ####[facility] [address] [place], [address] ECRCL 127.66 ml/min Normal 50-250 [facility] Comment on above: Order Comment: Call MD with results STAT Performed By: #### L 500.2500 ####[facility] [address] [place], [address] GAP 9 Normal 5-15 [facility] Comment on above: Order Comment: Call MD with results STAT Performed By: #### L 500.2500 ####[facility] [address] [place], [address] GFR/1.73 sq M.predicted among non-blacks MDRD (S/P/Bld) [Vol rate/Area] 121 mL/min/{1.73_m2} Normal >60 [facility] Comment on above: Order Comment: Call MD with results STAT Result Comment: mL/m in/1.73m2 CKD-EPI Creatinine Equation (2020) Performed By: #### L 500.2500 ####[facility] [address] [place], [address] Glucose [Mass/Vol] 121 mg/dL High 70-99 [facility] Comment on above: Order Comment: Call MD with results STAT Performed By: #### L 500.2500 ####[facility] [address] [place], [address] Potassium [Moles/Vol] 2.9 mmol/L Low 3.3-5.1 [facility] Comment on above: Order Comment: Call MD with results STAT Performed By: #### L 500.2500 ####[facility] [address] [place], [address] Sodium [Moles/Vol] 141 mmol/L Normal 133-145 [facility] Comment on above: Order Comment: Call MD with results STAT Performed By: #### L 500.2500 ####[facility] [address] [place], [address] Urea nitrogen [Mass/Vol] 6 mg/dL Normal 4-19 [facility] Comment on above: Order Comment: Call MD with results STAT Performed By: #### L 500.2500 ####[facility] [address] [place], [address] Bedside Glucoseon 01-24-2025 FINGERSTICK GLU 304 mg/dL High [address] [place] [address] Comment on above: Result Comment: EDGAR GEMENT OF PATIENT CARE PER NURSING PROTOCOL Performed By: #### L 501.080 ####[facility] [address] [place], [address] FINGERSTICK GLU 239 mg/dL High [address] [place] [address] Comment on above: Result Comment: EDGAR GEMENT OF PATIENT CARE PER NURSING PROTOCOL Performed By: #### L 501.080 ####[facility] [address] [place], [address] FINGERSTICK GLU 400 mg/dL High [address] [place] [address] Comment on above: Result Comment: EDGAR GEMENT OF PATIENT CARE PER NURSING PROTOCOL Performed By: #### L 501.080 ####[facility] [address] [place], [address] FINGERSTICK GLU 309 mg/dL High [address] [place] [address] Comment on above: Result Comment: EDGAR GEMENT OF PATIENT CARE PER NURSING PROTOCOL Performed By: #### L 501.080 ####[facility] [address] [place], [address] FINGERSTICK GLU 261 mg/dL High [address] [place] [address] Comment on above: Result Comment: EDGAR GEMENT OF PATIENT CARE PER NURSING PROTOCOL Performed By: #### L 501.080 ####[facility] [address], [address] FINGERSTICK GLU 129 mg/dL High 74-106 [facility] Comment on above: Result Comment: EDGAR GEMENT OF PATIENT CARE PER NURSING PROTOCOL Performed By: #### L 501.080 ####[facility] [address] [place], [address] FINGERSTICK GLU 177 mg/dL High 74-106 [facility] Comment on above: Result Comment: EDGAR GEMENT OF PATIENT CARE PER NURSING PROTOCOL Performed By: #### L 501.080 ####[facility] [address] [place], [address] FINGERSTICK GLU 167 mg/dL High 74-106 [facility] Comment on above: Result Comment: EDGAR GEMENT OF PATIENT CARE PER NURSING PROTOCOL Performed By: #### L 501.080 ####[facility] [address] [place], [address] FINGERSTICK GLU 172 mg/dL High 74-106 [facility] Comment on above: Result Comment: EDGAR GEMENT OF PATIENT CARE PER NURSING PROTOCOL Performed By: #### L 501.080 ####[facility] [address] [place], [address] FINGERSTICK GLU 156 mg/dL High 74-106 [facility] Comment on above: Result Comment: EDGAR GEMENT OF PATIENT CARE PER NURSING PROTOCOL Performed By: #### L 501.080 ####[facility] [address] [place], [address] FINGERSTICK GLU 123 mg/dL High 74-106 [facility] Comment on above: Result Comment: EDGAR GEMENT OF PATIENT CARE PER NURSING PROTOCOL Performed By: #### L 501.080 ####[facility] [address] [place], [address] FINGERSTICK GLU 97 mg/dL Normal 74-106 [facility] Comment on above: Result Comment: EDGAR GEMENT OF PATIENT CARE PER NURSING PROTOCOL Performed By: #### L 501.080 ####[facility] [address] [place], [address] FINGERSTICK GLU 115 mg/dL High 74-106 [facility] Comment on above: Result Comment: EDGAR GEMENT OF PATIENT CARE PER NURSING PROTOCOL Performed By: #### L 501.080 ####[facility] [address] [place], [address] FINGERSTICK GLU 143 mg/dL High 74-106 [facility] Comment on above: Result Comment: EDGAR GEMENT OF PATIENT CARE PER NURSING PROTOCOL Performed By: #### L 501.080 ####[facility] [address] [place], [address] CBC W/Diff, Automatedon 05-3 SMEAR COMMENT COMMENT Normal [facility] Comment on above: Result Comment: LYMP HOPENIA. Performed By: #### L 100.0100 ####[facility] [address] [place], [address] PLT EST MOD DEC Normal ADEQ [facility] Comment on above: Performed By: #### L 100.0100 ####[facility] [address] [place], [address] Basic Metabolic Profile (BMP )on 01-23-2025 BUN/CRE 11.7 RATIO Normal 10-20 [facility] Comment on above: Order Comment: Call MD with results STAT Performed By: #### L 500.2500 ####[facility] [address] [place], [address] Calcium [Mass/Vol] 7.7 mg/dL Normal 7.6-11.0 [facility] Comment on above: Order Comment: Call MD with results STAT Performed By: #### L 500.2500 ####[facility] [address] [place], [address] Chloride [Moles/Vol] 112 mmol/L High 98-108 [facility] Comment on above: Order Comment: Call MD with results STAT Performed By: #### L 500.2500 ####[facility] [address] [place], [address] CO2 [Moles/Vol] 16.8 mmol/L Low 21.0-32.0 [facility] Comment on above: Order Comment: Call MD with results STAT Performed By: #### L 500.2500 ####[facility] [address] [place], [address] Creatinine [Mass/Vol] 0.64 mg/dL Low 0.70-1.20 [facility] Comment on above: Order Comment: Call MD with results STAT Performed By: #### L 500.2500 ####[facility] [address] [place], [address] ECRCL 129.66 ml/min Normal 50-250 [facility] Comment on above: Order Comment: Call MD with results STAT Performed By: #### L 500.2500 ####[facility] [address] [place], [address] GAP 10 Normal 5-15 [facility] Comment on above: Order Comment: Call MD with results STAT Performed By: #### L 500.2500 ####[facility] [address] [place], [address] GFR/1.73 sq M.predicted among non-blacks MDRD (S/P/Bld) [Vol rate/Area] 122 mL/min/{1.73_m2} Normal >60 [facility] Comment on above: Order Comment: Call MD with results STAT Result Comment: mL/m in/1.73m2 CKD-EPI Creatinine Equation (2020) Performed By: #### L 500.2500 ####[facility] [address] [place], [address] Glucose [Mass/Vol] 150 mg/dL High 70-99 [facility] Comment on above: Order Comment: Call MD with results STAT Performed By: #### L 500.2500 ####[facility] [address] [place], [address] Potassium [Moles/Vol] 3.2 mmol/L Low 3.3-5.1 [facility] Comment on above: Order Comment: Call MD with results STAT Performed By: #### L 500.2500 ####[facility] [address] [place], [address] Sodium [Moles/Vol] 139 mmol/L Normal 133-145 [facility] Comment on above: Order Comment: Call MD with results STAT Performed By: #### L 500.2500 ####[facility] [address] [place], [address] Urea nitrogen [Mass/Vol] 8 mg/dL Normal 4-19 [facility] Comment on above: Order Comment: Call MD with results STAT Performed By: #### L 500.2500 ####[facility] [address] [place], [address] BUN/CRE 14.4 RATIO Normal 10-20 [facility] Comment on above: Order Comment: Call MD with results STAT Performed By: #### L 500.2500 ####[facility] [address] [place], [address] Calcium [Mass/Vol] 7.5 mg/dL Low 7.6-11.0 [facility] Comment on above: Order Comment: Call MD with results STAT Performed By: #### L 500.2500 ####[facility] [address] [place], [address] Chloride [Moles/Vol] 112 mmol/L High 98-108 [facility] Comment on above: Order Comment: Call MD with results STAT Performed By: #### L 500.2500 ####[facility] [address] [place], [address] CO2 [Moles/Vol] 13.6 mmol/L Low 21.0-32.0 [facility] Comment on above: Order Comment: Call MD with results STAT Performed By: #### L 500.2500 ####[facility] [address] [place], [address] Creatinine [Mass/Vol] 0.69 mg/dL Low 0.70-1.20 [facility] Comment on above: Order Comment: Call MD with results STAT Performed By: #### L 500.2500 ####[facility] [address] [place], [address] ECRCL 120.26 ml/min Normal 50-250 [facility] Comment on above: Order Comment: Call MD with results STAT Performed By: #### L 500.2500 ####[facility] [address] [place], [address] GAP 13 Normal 5-15 [facility] Comment on above: Order Comment: Call MD with results STAT Performed By: #### L 500.2500 ####[facility] [address] [place], [address] GFR/1.73 sq M.predicted among non-blacks MDRD (S/P/Bld) [Vol rate/Area] 120 mL/min/{1.73_m2} Normal >60 [facility] Comment on above: Order Comment: Call MD with results STAT Result Comment: mL/m in/1.73m2 CKD-EPI Creatinine Equation (2020) Performed By: #### L 500.2500 ####[facility] [address] [place], [address] Glucose [Mass/Vol] 139 mg/dL High 70-99 [facility] Comment on above: Order Comment: Call MD with results STAT Performed By: #### L 500.2500 ####[facility] [address] [place], [address] Potassium [Moles/Vol] 3.4 mmol/L Normal 3.3-5.1 [facility] Comment on above: Order Comment: Call MD with results STAT Performed By: #### L 500.2500 ####[facility] [address] [place], [address] Sodium [Moles/Vol] 139 mmol/L Normal 133-145 [facility] Comment on above: Order Comment: Call MD with results STAT Performed By: #### L 500.2500 ####[facility] [address] [place], [address] Urea nitrogen [Mass/Vol] 10 mg/dL Normal 4-19 [facility] Comment on above: Order Comment: Call MD with results STAT Performed By: #### L 500.2500 ####[facility] [address] [place], [address] BUN/CRE 16.3 RATIO Normal 10-20 [facility] Comment on above: Order Comment: Call MD with results STAT Performed By: #### L 500.2500 ####[facility] [address] [place], [address] Calcium [Mass/Vol] 7.6 mg/dL Normal 7.6-11.0 [facility] Comment on above: Order Comment: Call MD with results STAT Performed By: #### L 500.2500 ####[facility] [address] [place], [address] Chloride [Moles/Vol] 110 mmol/L High 98-108 [facility] Comment on above: Order Comment: Call MD with results STAT Performed By: #### L 500.2500 ####[facility] [address] [place], [address] CO2 [Moles/Vol] 12.5 mmol/L Low 21.0-32.0 [facility] Comment on above: Order Comment: Call MD with results STAT Performed By: #### L 500.2500 ####[facility] [address] [place], [address] Creatinine [Mass/Vol] 0.72 mg/dL Normal 0.70-1.20 [facility] Comment on above: Order Comment: Call MD with results STAT Performed By: #### L 500.2500 ####[facility] [address] [place], [address] ECRCL 115.25 ml/min Normal 50-250 [facility] Comment on above: Order Comment: Call MD with results STAT Performed By: #### L 500.2500 ####[facility] [address] [place], [address] GAP 16 High 5-15 [facility] Comment on above: Order Comment: Call MD with results STAT Performed By: #### L 500.2500 ####[facility] [address] [place], [address] GFR/1.73 sq M.predicted among non-blacks MDRD (S/P/Bld) [Vol rate/Area] 115 mL/min/{1.73_m2} Normal >60 [facility] Comment on above: Order Comment: Call MD with results STAT Result Comment: mL/m in/1.73m2 CKD-EPI Creatinine Equation (2020) Performed By: #### L 500.2500 ####[facility] [address] [place], [address] Glucose [Mass/Vol] 176 mg/dL High 70-99 [facility] Comment on above: Order Comment: Call MD with results STAT Performed By: #### L 500.2500 ####[facility] [address] [place], [address] Potassium [Moles/Vol] 3.7 mmol/L Normal 3.3-5.1 [facility] Comment on above: Order Comment: Call MD with results STAT Performed By: #### L 500.2500 ####[facility] [address] [place], [address] Sodium [Moles/Vol] 138 mmol/L Normal 133-145 [facility] Comment on above: Order Comment: Call MD with results STAT Performed By: #### L 500.2500 ####[facility] [address] [place], [address] Urea nitrogen [Mass/Vol] 12 mg/dL Normal 4-19 [facility] Comment on above: Order Comment: Call MD with results STAT Performed By: #### L 500.2500 ####[facility] [address] [place], [address] BUN/CRE 16.2 RATIO Normal 10-20 [facility] Comment on above: Order Comment: Call MD with results STAT Performed By: #### L 500.2500 ####[facility] [address] [place], [address] Calcium [Mass/Vol] 7.6 mg/dL Normal 7.6-11.0 [facility] Comment on above: Order Comment: Call MD with results STAT Performed By: #### L 500.2500 ####[facility] [address] [place], [address] Chloride [Moles/Vol] 111 mmol/L High 98-108 [facility] Comment on above: Order Comment: Call MD with results STAT Performed By: #### L 500.2500 ####[facility] [address] [place], [address] CO2 [Moles/Vol] 11.0 mmol/L Low 21.0-32.0 [facility] Comment on above: Order Comment: Call MD with results STAT Performed By: #### L 500.2500 ####[facility] [address] [place], [address] Creatinine [Mass/Vol] 0.81 mg/dL Normal 0.70-1.20 [facility] Comment on above: Order Comment: Call MD with results STAT Performed By: #### L 500.2500 ####[facility] [address] [place], [address] ECRCL 102.45 ml/min Normal 50-250 [facility] Comment on above: Order Comment: Call MD with results STAT Performed By: #### L 500.2500 ####[facility] [address] [place], [address] GAP 18 High 5-15 [facility] Comment on above: Order Comment: Call MD with results STAT Performed By: #### L 500.2500 ####[facility] [address] [place], [address] GFR/1.73 sq M.predicted among non-blacks MDRD (S/P/Bld) [Vol rate/Area] 100 mL/min/{1.73_m2} Normal >60 [facility] Comment on above: Order Comment: Call MD with results STAT Result Comment: mL/m in/1.73m2 CKD-EPI Creatinine Equation (2020) Performed By: #### L 500.2500 ####[facility] [address] [place], [address] Glucose [Mass/Vol] 209 mg/dL High 70-99 [facility] Comment on above: Order Comment: Call MD with results STAT Performed By: #### L 500.2500 ####[facility] [address] [place], [address] Potassium [Moles/Vol] 4.5 mmol/L Normal 3.3-5.1 [facility] Comment on above: Order Comment: Call MD with results STAT Result Comment: Hemo lysis present, Results??could be affected.?? Performed By: #### L 500.2500 ####[facility] [address] [place], [address] Sodium [Moles/Vol] 140 mmol/L Normal 133-145 [facility] Comment on above: Order Comment: Call MD with results STAT Performed By: #### L 500.2500 ####[facility] [address] [place], [address] Urea nitrogen [Mass/Vol] 13 mg/dL Normal 4-19 [facility] Comment on above: Order Comment: Call MD with results STAT Performed By: #### L 500.2500 ####[facility] [address] [place], [address] BUN/CRE 21.2 RATIO High 10-20 [facility] Comment on above: Order Comment: Call MD with results STAT Performed By: #### L 500.2500 ####[facility] [address] [place], [address] Calcium [Mass/Vol] 8.4 mg/dL Normal 7.6-11.0 [facility] Comment on above: Order Comment: Call MD with results STAT Performed By: #### L 500.2500 ####[facility] [address] [place], [address] Chloride [Moles/Vol] 102 mmol/L Normal 98-108 [facility] Comment on above: Order Comment: Call MD with results STAT Performed By: #### L 500.2500 ####[facility] [address] [place], [address] CO2 [Moles/Vol] 7.2 mmol/L Invalid Interpretation Code 21.0-32.0 [facility] Comment on above: Order Comment: Call MD with results STAT Result Comment: Crit ical Result(s) Called at: by:??Results read back bysaid.Critical Result(s) Called at:0104 by: ROSLYN ARNETTN TO [facility]??Results read back by same. Performed By: #### L 500.2500 ####[facility] [address] [place], [address] Creatinine [Mass/Vol] 1.01 mg/dL Normal 0.70-1.20 [facility] Comment on above: Order Comment: Call MD with results STAT Performed By: #### L 500.2500 ####[facility] [address] [place], [address] ECRCL 82.16 ml/min Normal 50-250 [facility] Comment on above: Order Comment: Call MD with results STAT Performed By: #### L 500.2500 ####[facility] [address] [place], [address] GAP 26 High 5-15 [facility] Comment on above: Order Comment: Call MD with results STAT Performed By: #### L 500.2500 ####[facility] [address] [place], [address] GFR/1.73 sq M.predicted among non-blacks MDRD (S/P/Bld) [Vol rate/Area] 77 mL/min/{1.73_m2} Normal >60 [facility] Comment on above: Order Comment: Call MD with results STAT Result Comment: mL/m in/1.73m2 CKD-EPI Creatinine Equation (2020) Performed By: #### L 500.2500 ####[facility] [address] [place], [address] Glucose [Mass/Vol] 330 mg/dL High 70-99 [facility] Comment on above: Order Comment: Call MD with results STAT Performed By: #### L 500.2500 ####[facility] [address] [place], [address] Potassium [Moles/Vol] 4.4 mmol/L Normal 3.3-5.1 [facility] Comment on above: Order Comment: Call MD with results STAT Result Comment: Hemo lysis present, Results??could be affected.?? Performed By: #### L 500.2500 ####[facility] [address] [place], [address] Sodium [Moles/Vol] 135 mmol/L Normal 133-145 [facility] Comment on above: Order Comment: Call MD with results STAT Performed By: #### L 500.2500 ####[facility] [address] [place], [address] Urea nitrogen [Mass/Vol] 21 mg/dL High 4-19 [facility] Comment on above: Order Comment: Call MD with results STAT Performed By: #### L 500.2500 ####[facility] [address] [place], [address] Bedside Glucoseon 01-23-2025 FINGERSTICK GLU 150 mg/dL High 74-106 [facility] Comment on above: Result Comment: EDGAR GEMENT OF PATIENT CARE PER NURSING PROTOCOL Performed By: #### L 501.080 ####[facility] [address] [place], [address] FINGERSTICK GLU 170 mg/dL High 74-106 [facility] Comment on above: Result Comment: EDGAR GEMENT OF PATIENT CARE PER NURSING PROTOCOL Performed By: #### L 501.080 ####[facility] [address] [place], [address] FINGERSTICK GLU 134 mg/dL High 74-106 [facility] Comment on above: Result Comment: EDGAR GEMENT OF PATIENT CARE PER NURSING PROTOCOL Performed By: #### L 501.080 ####[facility] [address] [place], [address] FINGERSTICK GLU 134 mg/dL High 74-106 [facility] Comment on above: Result Comment: EDGAR GEMENT OF PATIENT CARE PER NURSING PROTOCOL Performed By: #### L 501.080 ####[facility] [address] [place], [address] FINGERSTICK GLU 145 mg/dL High 74-106 [facility] Comment on above: Result Comment: EDGAR GEMENT OF PATIENT CARE PER NURSING PROTOCOL Performed By: #### L 501.080 ####[facility] [address] [place], [address] FINGERSTICK GLU 136 mg/dL High 74-106 [facility] Comment on above: Result Comment: EDGAR GEMENT OF PATIENT CARE PER NURSING PROTOCOL Performed By: #### L 501.080 ####[facility] [address] [place], [address] FINGERSTICK GLU 128 mg/dL High 74-106 [facility] Comment on above: Result Comment: EDGAR GEMENT OF PATIENT CARE PER NURSING PROTOCOL Performed By: #### L 501.080 ####[facility] [address] [place], [address] FINGERSTICK GLU 127 mg/dL High 74-106 [facility] Comment on above: Result Comment: EDGAR GEMENT OF PATIENT CARE PER NURSING PROTOCOL Performed By: #### L 501.080 ####[facility] [address] [place], [address] FINGERSTICK GLU 120 mg/dL High 74-106 [facility] Comment on above: Result Comment: EDGAR GEMENT OF PATIENT CARE PER NURSING PROTOCOL Performed By: #### L 501.080 ####[facility] [address] [place], [address] FINGERSTICK GLU 127 mg/dL High 74-106 [facility] Comment on above: Result Comment: EDGAR GEMENT OF PATIENT CARE PER NURSING PROTOCOL Performed By: #### L 501.080 ####[facility] [address] [place], [address] FINGERSTICK GLU 176 mg/dL High 74-106 [facility] Comment on above: Result Comment: EDGAR GEMENT OF PATIENT CARE PER NURSING PROTOCOL Performed By: #### L 501.080 ####[facility] [address] [place], [address] FINGERSTICK GLU 156 mg/dL High 74-106 [facility] Comment on above: Result Comment: EDGAR GEMENT OF PATIENT CARE PER NURSING PROTOCOL Performed By: #### L 501.080 ####[facility] [address] [place], [address] FINGERSTICK GLU 177 mg/dL High -106 [facility] Comment on above: Result Comment: EDGAR GEMENT OF PATIENT CARE PER NURSING PROTOCOL Performed By: #### L 501.080 ####[facility] [address] [place], [address] FINGERSTICK GLU 200 mg/dL High -[address] [place] [address] Comment on above: Result Comment: EDGAR GEMENT OF PATIENT CARE PER NURSING PROTOCOL Performed By: #### L 501.080 ####[facility] [address] [place], [address] FINGERSTICK GLU 203 mg/dL High -[address] [place] [address] Comment on above: Result Comment: EDGAR GEMENT OF PATIENT CARE PER NURSING PROTOCOL Performed By: #### L 501.080 ####[facility] [address] [place], [address] FINGERSTICK GLU 214 mg/dL High -[address] [place] [address] Comment on above: Result Comment: EDGAR GEMENT OF PATIENT CARE PER NURSING PROTOCOL Performed By: #### L 501.080 ####[facility] [address] [place], [address] FINGERSTICK GLU 217 mg/dL High 74-106 [facility] Comment on above: Result Comment: EDGAR GEMENT OF PATIENT CARE PER NURSING PROTOCOL Performed By: #### L 501.080 ####[facility] [address] [place], [address] FINGERSTICK GLU 230 mg/dL High -106 [facility] Comment on above: Result Comment: EDGAR GEMENT OF PATIENT CARE PER NURSING PROTOCOL Performed By: #### L 501.080 ####[facility] [address] [place], [address] FINGERSTICK GLU 258 mg/dL High 74-106 [facility] Comment on above: Result Comment: EDGAR GEMENT OF PATIENT CARE PER NURSING PROTOCOL Performed By: #### L 501.080 ####[facility] [address] [place], [address] FINGERSTICK GLU 269 mg/dL High 74-106 [facility] Comment on above: Result Comment: EDGAR GEMENT OF PATIENT CARE PER NURSING PROTOCOL Performed By: #### L 501.080 ####[facility] [address] [place], [address] FINGERSTICK GLU 253 mg/dL High [facility]106 [facility] Comment on above: Result Comment: EDGAR GEMENT OF PATIENT CARE PER NURSING PROTOCOL Performed By: #### L 501.080 ####[facility] [address] [place], [address] FINGERSTICK GLU 286 mg/dL High [address] [place] [address] Comment on above: Result Comment: EDGAR GEMENT OF PATIENT CARE PER NURSING PROTOCOL Performed By: #### L 501.080 ####[facility] [address] [place], [address] CBC W/Diff, Automatedon 05-2 SMEAR COMMENT SCANNED Normal [facility] Comment on above: Performed By: #### L 100.0100 ####[facility] [address] [place], [address] Basic Metabolic Profile (BMP )on 01-22-2025 BUN/CRE 21.4 RATIO High 10-20 [facility] Comment on above: Performed By: #### L 700.6800, L500.3400, L501.2450, L500.2500, L100.0100 ####[facility] [address] [place], [address] Calcium [Mass/Vol] 9.4 mg/dL Normal 7.6-11.0 [facility] Comment on above: Performed By: #### L 700.6800, L500.3400, L501.2450, L500.2500, L100.0100 ####[facility] [address] [place], [address] Chloride [Moles/Vol] 92 mmol/L Low 98-108 [facility] Comment on above: Performed By: #### L 700.6800, L500.3400, L501.2450, L500.2500, L100.0100 ####[facility] [address] [place], [address] CO2 [Moles/Vol] 6.3 mmol/L Invalid Interpretation Code 21.0-32.0 [facility] Comment on above: Result Comment: Crit ical Result(s) Called at: by:??[facility]Critical Result(s) Called at: 2055 by: ROSLYN AYERS??Results read back by same. Performed By: #### L 700.6800, L500.3400, L501.2450, L500.2500, L100.0100 ####[facility] [address] [place], [address] Creatinine [Mass/Vol] 1.10 mg/dL Normal 0.70-1.20 [facility] Comment on above: Performed By: #### L 700.6800, L500.3400, L501.2450, L500.2500, L100.0100 ####[facility] [address] [place], [address] GAP 32 High 5-15 [facility] Comment on above: Performed By: #### L 700.6800, L500.3400, L501.2450, L500.2500, L100.0100 ####[facility] [address] [place], [address] GFR/1.73 sq M.predicted among non-blacks MDRD (S/P/Bld) [Vol rate/Area] 69 mL/min/{1.73_m2} Normal >60 [facility] Comment on above: Result Comment: mL/m in/1.73m2 CKD-EPI Creatinine Equation (2020) Performed By: #### L 700.6800, L500.3400, L501.2450, L500.2500, L100.0100 ####[facility] [address] [place], [address] Glucose [Mass/Vol] 507 mg/dL Invalid Interpretation Code 70-99 [facility] Comment on above: Result Comment: Crit ical Result(s) Called at: by:??Results read back bysame.Critical Result(s) Called at: 2055 by: ROSLYN AYERS??Results read back by same.Critical Result(s) Called at: by:??Results read back bysame. Performed By: #### L 700.6800, L500.3400, L501.2450, L500.2500, L100.0100 ####[facility] [address] [place], [address] Potassium [Moles/Vol] 4.7 mmol/L Normal 3.3-5.1 [facility] Comment on above: Performed By: #### L 700.6800, L500.3400, L501.2450, L500.2500, L100.0100 ####[facility] [address] [place], [address] Sodium [Moles/Vol] 130 mmol/L Low 133-145 [facility] Comment on above: Performed By: #### L 700.6800, L500.3400, L501.2450, L500.2500, L100.0100 ####[facility] [address] [place], [address] Urea nitrogen [Mass/Vol] 24 mg/dL High -19 [facility] Comment on above: Performed By: #### L 700.6800, L500.3400, L501.2450, L500.2500, L100.0100 ####[facility] [address] [place], [address] Bedside Glucoseon 01-22-2025 FINGERSTICK GLU 369 mg/dL High 74-106 [facility] Comment on above: Result Comment: EDGAR GEMENT OF PATIENT CARE PER NURSING PROTOCOL Performed By: #### L 501.080 ####[facility] [address] [place], [address] FINGERSTICK GLU > 500 Invalid Interpretation Code [facility]106 [facility] Comment on above: Result Comment: Insu marci GivenMANAGEMENT OF PATIENT CARE PER NURSING PROTOCOL Performed By: #### L 501.080 ####[facility] [address] [place], [address] FINGERSTICK GLU 492 mg/dL Invalid Interpretation Code [address] [place] [address] Comment on above: Result Comment: Dr Ej foreman FollowedMANAGEMENT OF PATIENT CARE PER NURSING PROTOCOL Performed By: #### L 501.080 ####[facility] [address] [place], [address] Beta-Hydroxbytyrateon 2024 BETA-HYDROXYBUT 6.8 mmol/L Normal 0.0-0.3 [facility] Comment on above: Performed By: #### L 501.6901 ####[facility] [address] [place], [address] CBC W/Diff, Automatedon - PLT EST SLT DEC Normal ADEQ [facility] Comment on above: Performed By: #### L 700.6800, L500.3400, L501.2450, L500.2500, L100.0100 ####[facility] [address] [place], [address] SMEAR COMMENT SCANNED Normal [facility] Comment on above: Performed By: #### L 700.6800, L500.3400, L501.2450, L500.2500, L100.0100 ####[facility] [address] [place], [address] Emergency Department Summary on 01-22-2025 Emergency Department Summary Normal [facility] H AND P Exam - Hospitaliston 01-22-2025 H&P Exam - Hospitalist Normal [facility] Lipaseon 01-22-2025 Lipase [Catalytic activity/Vol] 11 U/L Low 13-75 [facility] Comment on above: Result Comment: Sulma schmitz note:LIPASE revised reference range effective 22.New Lipase methodology. Expected to produce lower valuesthan the previous assay method.NEW Reference Range: 13 - 75 U/L Performed By: #### L 700.6800, L500.3400, L501.2450, L500.2500, L100.0100 ####[facility] [address] [place], [address] Liver Profileon 01-22-2025 Albumin [Mass/Vol] 4.6 g/dL Normal 3.5-5.0 [facility] Comment on above: Performed By: #### L 700.6800, L500.3400, L501.2450, L500.2500, L100.0100 ####[facility] [address] [place], [address] ALK PHOS 109 U/L High 35-104 [facility] Comment on above: Performed By: #### L 700.6800, L500.3400, L501.2450, L500.2500, L100.0100 ####[facility] [address] [place], [address] ALT [Catalytic activity/Vol] 11 U/L Normal <=34 [facility] Comment on above: Performed By: #### L 700.6800, L500.3400, L501.2450, L500.2500, L100.0100 ####[facility] [address] [place], [address] AST [Catalytic activity/Vol] 16 U/L Normal <=31 [facility] Comment on above: Performed By: #### L 700.6800, L500.3400, L501.2450, L500.2500, L100.0100 ####[facility] [address] [place], [address] Bilirubin [Mass/Vol] 0.96 mg/dL Normal 0.00-1.30 [facility] Comment on above: Performed By: #### L 700.6800, L500.3400, L501.2450, L500.2500, L100.0100 ####[facility] [address] [place], [address] Bilirubin.direct [Mass/Vol] 0.40 mg/dL High 0.00-0.30 [facility] Comment on above: Performed By: #### L 700.6800, L500.3400, L501.2450, L500.2500, L100.0100 ####[facility] [address] [place], [address] Globulin (S) [Mass/Vol] 3.3 g/dL Normal 2.2-4.2 [facility] Comment on above: Performed By: #### L 700.6800, L500.3400, L501.2450, L500.2500, L100.0100 ####[facility] [address] [place], [address] T PROT 7.9 g/dL Normal 5.9-8.4 [facility] Comment on above: Performed By: #### L 700.6800, L500.3400, L501.2450, L500.2500, L100.0100 ####[facility] [address] [place], [address] ,Serum,hCG Quali.on 01-22-2025 HCG, SERUM QUAL Negative Normal [facility] Comment on above: Performed By: #### L 700.6800, L500.3400, L501.2450, L500.2500, L100.0100 ####[facility] [address] [place], [address] Urinalysis, Completeon 01-22 WBC 0-5 SEEN Normal 0-5 [facility] Comment on above: Order Comment: CRITI CRISTINA VALUE CALLED TO [facility]01/22/[id number] Nguyen Lollo.RESULTS READ BACK BY SAME.CLEAN CATCH Performed By: #### L 400.0001 ####[facility] [address] [place], [address] RBC 0-5 SEEN Normal 0-5 [facility] Comment on above: Order Comment: CRITI CRISTINA VALUE CALLED TO [facility]01/22/252058 Nguyen Lollo.RESULTS READ BACK BY SAME.CLEAN CATCH Performed By: #### L 400.0001 ####[facility] [address] [place], [address] BACTERIA 1+ /hpf Normal None Seen [facility] Comment on above: Order Comment: CRITI CRISTINA VALUE CALLED TO [facility]01/22/252058 Nguyen Lollo.RESULTS READ BACK BY SAME.CLEAN CATCH Performed By: #### L 400.0001 ####[facility] [address] [place], [address] EPI,SQUAMOUS 0-5 SEEN Normal 5-10 [facility] Comment on above: Order Comment: CRITI CRISTINA VALUE CALLED TO [facility]01/22/252058 Nguyen Lollo.RESULTS READ BACK BY SAME.CLEAN CATCH Performed By: #### L 400.0001 ####[facility] [address] [place], [address] Mucus Ql (Urine sed) 0 SEEN Normal [facility] Comment on above: Order Comment: CRITI CRISTINA VALUE CALLED TO [facility]01/22/252058 Nguyen Houser.RESULTS READ BACK BY SAME.CLEAN CATCH Performed By: #### L 400.0001 ####[facility] [address] [place], [address] Venous Blood Gason 5 Blood Gas Type ISABELLE Normal [facility] Comment on above: Performed By: #### L 9000.0810 ####[facility] [address] [place], [address] CO2 [Moles/Vol] 8 mmol/L Low 23-33 [facility] Comment on above: Performed By: #### L 9000.0810 ####[facility] [address] [place], [address] HCO3 (Bld) [Moles/Vol] 8 mmol/L Low 22-26 [facility] Comment on above: Performed By: #### L 9000.0810 ####[facility] [address] [place], [address] O2 Delivery Dev Not entered [facility] Comment on above: Performed By: #### L 9000.0810 ####[facility] [address] [place], [address] Read Back By Yes [facility] Comment on above: Performed By: #### L 9000.0810 ####[facility] [address] [place], [address] SITE Not entered [facility] Comment on above: Performed By: #### L 9000.0810 ####[facility] [address] [place], [address] VBG BE -21 mmol/L Low -1.0-3.5 [facility] Comment on above: Performed By: #### L 9000.0810 ####[facility] [address] [place], [address] VBG pCO2 20.8 mmHg Low 41-51 [facility] Comment on above: Performed By: #### L 9000.0810 ####[facility] [address] [place], [address] VBG pH 7.17 Invalid Interpretation Code 7.32-7.42 [facility] Comment on above: Performed By: #### L 9000.0810 ####[facility] [address] [place], [address] VBG PO2 48 mmHg High 25-40 [facility] Comment on above: Performed By: #### L 9000.0810 ####[facility] [address] [place], [address] VBG SO2 74 High 50-70 [facility] Comment on above: Performed By: #### L 9000.0810 ####[facility] [address] [place], [address] Abdomen Single Viewon 2024 Abdomen Single View Normal [facility] Gastroenterology Visit Repor ton 01-08-2025 Gastroenterology Visit Report Normal [facility] CBC W/Diff, Automatedon 04-3 Absolute Lymph 1.70 X10 3/uL Normal 0.83-4.51 [facility] Comment on above: Performed By: #### L 500.4050, L100.0100, L501.2300 ####[facility] [address] [place], [address] Absolute Neut 7.3 X10 3/uL Normal 2.0-7.7 [facility] Comment on above: Performed By: #### L 500.4050, L100.0100, L501.2300 ####[facility] [address] [place], [address] Basophils/100 WBC (Bld) 0.5 % Normal 0-1 [facility] Comment on above: Performed By: #### L 500.4050, L100.0100, L501.2300 ####[facility] [address] [place], [address] Eosinophils/100 WBC (Bld) 0.6 % Normal 0-5 [facility] Comment on above: Performed By: #### L 500.4050, L100.0100, L501.2300 ####[facility] [address] [place], [address] Erythrocyte distribution width (RBC) [Ratio] 13.1 % Normal 11.6-14.6 [facility] Comment on above: Performed By: #### L 500.4050, L100.0100, L501.2300 ####[facility] [address] [place], [address] Hematocrit (Bld) [Volume fraction] 42.8 % Normal 37-47 [facility] Comment on above: Performed By: #### L 500.4050, L100.0100, L501.2300 ####[facility] [address] [place], [address] Hemoglobin (Bld) [Mass/Vol] 14.5 g/dL Normal 12.0-15.0 [facility] Comment on above: Performed By: #### L 500.4050, L100.0100, L501.2300 ####[facility] [address] [place], [address] IG% 0.900 Normal 0.0-0.9 [facility] Comment on above: Result Comment: IG% - Immature Granulocytes (promyelocytes, myelocytes andmetamyelocytes) > 1% indicates that a LEFT SHIFT is Present. Performed By: #### L 500.4050, L100.0100, L501.2300 ####[facility] [address] [place], [address] Lymphocytes/100 WBC (Bld) 17.6 % Low 19-41 [facility] Comment on above: Performed By: #### L 500.4050, L100.0100, L501.2300 ####[facility] [address] [place], [address] MCH (RBC) [Entitic mass] 29.5 pg Normal 27.0-32.0 [facility] Comment on above: Performed By: #### L 500.4050, L100.0100, L501.2300 ####[facility] [address] [place], [address] MCHC (RBC) [Mass/Vol] 33.9 g/dL Normal 32-36 [facility] Comment on above: Performed By: #### L 500.4050, L100.0100, L501.2300 ####[facility] [address] [place], [address] MCV (RBC) [Entitic vol] 87.2 fL Normal 81-99 [facility] Comment on above: Performed By: #### L 500.4050, L100.0100, L501.2300 ####[facility] [address] [place], [address] Monocytes/100 WBC (Bld) 5.3 % Normal 0-10 [facility] Comment on above: Performed By: #### L 500.4050, L100.0100, L501.2300 ####[facility] [address] [place], [address] Neutrophils/100 WBC (Bld) 75.1 % High 47-70 [facility] Comment on above: Performed By: #### L 500.4050, L100.0100, L501.2300 ####[facility] [address] [place], [address] Nucleated RBC (Bld) [#/Vol] 0 10*3/uL Normal 0-5 [facility] Comment on above: Performed By: #### L 500.4050, L100.0100, L501.2300 ####[facility] [address] [place], [address] Platelet mean volume (Bld) [Entitic vol] 12.4 fL High 6.2-12.0 [facility] Comment on above: Performed By: #### L 500.4050, L100.0100, L501.2300 ####[facility] [address] [place], [address] Platelets (Bld) [#/Vol] 149 10*3/uL Low 150-450 [facility] Comment on above: Performed By: #### L 500.4050, L100.0100, L501.2300 ####[facility] [address] [place], [address] RBC (Bld) [#/Vol] 4.91 10*6/uL Normal 4.2-5.4 [facility] Comment on above: Performed By: #### L 500.4050, L100.0100, L501.2300 ####[facility] [address] [place], [address] RDW SD 41.7 fl Normal 35.1-43.9 [facility] Comment on above: Performed By: #### L 500.4050, L100.0100, L501.2300 ####[facility] [address] [place], [address] WBC (Bld) [#/Vol] 9.7 10*3/uL Normal 4.4-11.0 [facility] Comment on above: Performed By: #### L 500.4050, L100.0100, L501.2300 ####[facility] [address] [place], [address] Comprehensive Metabolic Prof ilon 12-25-2024 Albumin [Mass/Vol] 4.3 g/dL Normal 3.5-5.0 [facility] Comment on above: Performed By: #### L 500.4050, L100.0100, L501.2300 ####[facility] [address] [place], [address] Albumin/Globulin [Mass ratio] 1.6 {ratio} Normal 0.9-2.4 [facility] Comment on above: Performed By: #### L 500.4050, L100.0100, L501.2300 ####[facility] [address] [place], [address] ALK PHOS 78 U/L Normal 35-104 [facility] Comment on above: Performed By: #### L 500.4050, L100.0100, L501.2300 ####[facility] [address] [place], [address] ALT [Catalytic activity/Vol] 9 U/L Normal <=34 [facility] Comment on above: Performed By: #### L 500.4050, L100.0100, L501.2300 ####[facility] [address] [place], [address] AST [Catalytic activity/Vol] 14 U/L Normal <=31 [facility] Comment on above: Performed By: #### L 500.4050, L100.0100, L501.2300 ####[facility] [address] [place], [address] Bilirubin [Mass/Vol] 0.56 mg/dL Normal 0.00-1.30 [facility] Comment on above: Performed By: #### L 500.4050, L100.0100, L501.2300 ####[facility] [address] [place], [address] BUN/CRE 14.6 RATIO Normal 10-20 [facility] Comment on above: Performed By: #### L 500.4050, L100.0100, L501.2300 ####[facility] [address] [place], [address] Calcium [Mass/Vol] 9.3 mg/dL Normal 7.6-11.0 [facility] Comment on above: Performed By: #### L 500.4050, L100.0100, L501.2300 ####[facility] [address] [place], [address] Chloride [Moles/Vol] 100 mmol/L Normal 98-108 [facility] Comment on above: Performed By: #### L 500.4050, L100.0100, L501.2300 ####[facility] [address] [place], [address] CO2 [Moles/Vol] 19.3 mmol/L Low 21.0-32.0 [facility] Comment on above: Performed By: #### L 500.4050, L100.0100, L501.2300 ####[facility] [address] [place], [address] Creatinine [Mass/Vol] 0.75 mg/dL Normal 0.70-1.20 [facility] Comment on above: Performed By: #### L 500.4050, L100.0100, L501.2300 ####[facility] [address] [place], [address] GAP 13 Normal 5-15 [facility] Comment on above: Performed By: #### L 500.4050, L100.0100, L501.2300 ####[facility] [address] [place], [address] GFR/1.73 sq M.predicted among non-blacks MDRD (S/P/Bld) [Vol rate/Area] 110 mL/min/{1.73_m2} Normal >60 [facility] Comment on above: Result Comment: mL/m in/1.73m2 CKD-EPI Creatinine Equation (2020) Performed By: #### L 500.4050, L100.0100, L501.2300 ####[facility] [address] [place], [address] Globulin (S) [Mass/Vol] 2.7 g/dL Normal 2.2-4.2 [facility] Comment on above: Performed By: #### L 500.4050, L100.0100, L501.2300 ####[facility] [address] [place], [address] Glucose [Mass/Vol] 443 mg/dL High 70-99 [facility] Comment on above: Performed By: #### L 500.4050, L100.0100, L501.2300 ####[facility] [address] [place], [address] Potassium [Moles/Vol] 4.5 mmol/L Normal 3.3-5.1 [facility] Comment on above: Performed By: #### L 500.4050, L100.0100, L501.2300 ####[facility] [address] [place], [address] Sodium [Moles/Vol] 133 mmol/L Normal 133-145 [facility] Comment on above: Performed By: #### L 500.4050, L100.0100, L501.2300 ####[facility] [address] [place], [address] T PROT 7.0 g/dL Normal 5.9-8.4 [facility] Comment on above: Performed By: #### L 500.4050, L100.0100, L501.2300 ####[facility] [address] [place], [address] Urea nitrogen [Mass/Vol] 11 mg/dL Normal 4-19 [facility] Comment on above: Performed By: #### L 500.4050, L100.0100, L501.2300 ####[facility] [address] [place], [address] Phosphoruson 12-25-2024 Phosphate [Mass/Vol] 2.9 mg/dL Normal 2.7-4.5 [facility] Comment on above: Performed By: #### L 500.4050, L100.0100, L501.2300 ####[facility] [address] [place], [address] Basic Metabolic Profile (BMP )on 12-16-2024 BUN/CRE 10.1 RATIO Normal 10-20 [facility] Comment on above: Performed By: #### L 500.2500, L100.0100 ####[facility] [address] [place], [address] Calcium [Mass/Vol] 8.4 mg/dL Normal 7.6-11.0 [facility] Comment on above: Performed By: #### L 500.2500, L100.0100 ####[facility] [address] [place], [address] Chloride [Moles/Vol] 107 mmol/L Normal 98-108 [facility] Comment on above: Performed By: #### L 500.2500, L100.0100 ####[facility] [address] [place], [address] CO2 [Moles/Vol] 19.2 mmol/L Low 21.0-32.0 [facility] Comment on above: Performed By: #### L 500.2500, L100.0100 ####[facility] [address] [place], [address] Creatinine [Mass/Vol] 0.68 mg/dL Low 0.70-1.20 [facility] Comment on above: Performed By: #### L 500.2500, L100.0100 ####[facility] [address] [place], [address] ECRCL 126.42 ml/min Normal 50-250 [facility] Comment on above: Performed By: #### L 500.2500, L100.0100 ####[facility] [address] [place], [address] GAP 11 Normal 5-15 [facility] Comment on above: Performed By: #### L 500.2500, L100.0100 ####[facility] [address] [place], [address] GFR/1.73 sq M.predicted among non-blacks MDRD (S/P/Bld) [Vol rate/Area] 120 mL/min/{1.73_m2} Normal >60 [facility] Comment on above: Result Comment: mL/m in/1.73m2 CKD-EPI Creatinine Equation (2020) Performed By: #### L 500.2500, L100.0100 ####[facility] [address] [place], [address] Glucose [Mass/Vol] 203 mg/dL High 70-99 [facility] Comment on above: Performed By: #### L 500.2500, L100.0100 ####[facility] [address] [place], [address] Potassium [Moles/Vol] 4.4 mmol/L Normal 3.3-5.1 [facility] Comment on above: Result Comment: Hemo lysis present, Results??could be affected.?? Performed By: #### L 500.2500, L100.0100 ####[facility] [address] [place], [address] Sodium [Moles/Vol] 137 mmol/L Normal 133-145 [facility] Comment on above: Performed By: #### L 500.2500, L100.0100 ####[facility] [address] [place], [address] Urea nitrogen [Mass/Vol] 7 mg/dL Normal 4-19 [facility] Comment on above: Performed By: #### L 500.2500, L100.0100 ####[facility] [address] [place], [address] Bedside Glucoseon 12-16-2024 FINGERSTICK GLU 214 mg/dL High 74-106 [facility] Comment on above: Result Comment: EDGAR GEMENT OF PATIENT CARE PER NURSING PROTOCOL Performed By: #### L 501.080 ####[facility] [address] [place], [address] FINGERSTICK GLU 227 mg/dL High 74-106 [facility] Comment on above: Result Comment: EDGAR GEMENT OF PATIENT CARE PER NURSING PROTOCOL Performed By: #### L 501.080 ####[facility] [address] [place], [address] FINGERSTICK GLU 180 mg/dL High 74-106 [facility] Comment on above: Result Comment: EDGAR GEMENT OF PATIENT CARE PER NURSING PROTOCOL Performed By: #### L 501.080 ####[facility] [address] [place], [address] CBC W/Diff, Automatedon - Absolute Lymph 2.03 X10 3/uL Normal 0.83-4.51 [facility] Comment on above: Performed By: #### L 500.2500, L100.0100 ####[facility] [address] [place], [address] Absolute Neut 14.1 X10 3/uL High 2.0-7.7 [facility] Comment on above: Performed By: #### L 500.2500, L100.0100 ####[facility] [address] [place], [address] Basophils/100 WBC (Bld) 0.3 % Normal 0-1 [facility] Comment on above: Performed By: #### L 500.2500, L100.0100 ####[facility] [address] [place], [address] Eosinophils/100 WBC (Bld) 0.1 % Normal 0-5 [facility] Comment on above: Performed By: #### L 500.2500, L100.0100 ####[facility] [address] [place], [address] Erythrocyte distribution width (RBC) [Ratio] 13.3 % Normal 11.6-14.6 [facility] Comment on above: Performed By: #### L 500.2500, L100.0100 ####[facility] [address] [place], [address] Hematocrit (Bld) [Volume fraction] 36.8 % Low 37-47 [facility] Comment on above: Performed By: #### L 500.2500, L100.0100 ####[facility] [address] [place], [address] Hemoglobin (Bld) [Mass/Vol] 12.4 g/dL Normal 12.0-15.0 [facility] Comment on above: Performed By: #### L 500.2500, L100.0100 ####[facility] [address] [place], [address] IG% 0.800 Normal 0.0-0.9 [facility] Comment on above: Result Comment: IG% - Immature Granulocytes (promyelocytes, myelocytes andmetamyelocytes) > 1% indicates that a LEFT SHIFT is Present. Performed By: #### L 500.2500, L100.0100 ####[facility] [address] [place], [address] Lymphocytes/100 WBC (Bld) 11.8 % Low 19-41 [facility] Comment on above: Performed By: #### L 500.2500, L100.0100 ####[facility] [address] [place], [address] MCH (RBC) [Entitic mass] 29.5 pg Normal 27.0-32.0 [facility] Comment on above: Performed By: #### L 500.2500, L100.0100 ####[facility] [address] [place], [address] MCHC (RBC) [Mass/Vol] 33.7 g/dL Normal 32-36 [facility] Comment on above: Performed By: #### L 500.2500, L100.0100 ####[facility] [address] [place], [address] MCV (RBC) [Entitic vol] 87.4 fL Normal 81-99 [facility] Comment on above: Performed By: #### L 500.2500, L100.0100 ####[facility] [address] [place], [address] Monocytes/100 WBC (Bld) 5.0 % Normal 0-10 [facility] Comment on above: Performed By: #### L 500.2500, L100.0100 ####[facility] [address] [place], [address] Neutrophils/100 WBC (Bld) 82.0 % High 47-70 [facility] Comment on above: Performed By: #### L 500.2500, L100.0100 ####[facility] [address] [place], [address] Nucleated RBC (Bld) [#/Vol] 0 10*3/uL Normal 0-5 [facility] Comment on above: Performed By: #### L 500.2500, L100.0100 ####[facility] [address] [place], [address] Platelet mean volume (Bld) [Entitic vol] 12.4 fL High 6.2-12.0 [facility] Comment on above: Performed By: #### L 500.2500, L100.0100 ####[facility] [address] [place], [address] Platelets (Bld) [#/Vol] 165 10*3/uL Normal 150-450 [facility] Comment on above: Performed By: #### L 500.2500, L100.0100 ####[facility] [address] [place], [address] RBC (Bld) [#/Vol] 4.21 10*6/uL Normal 4.2-5.4 [facility] Comment on above: Performed By: #### L 500.2500, L100.0100 ####[facility] [address] [place], [address] RDW SD 42.4 fl Normal 35.1-43.9 [facility] Comment on above: Performed By: #### L 500.2500, L100.0100 ####[facility] [address] [place], [address] WBC (Bld) [#/Vol] 17.1 10*3/uL High 4.4-11.0 [facility] Comment on above: Performed By: #### L 500.2500, L100.0100 ####[facility] [address] [place], [address] Discharge Instructionon 11-27 Discharge Instruction Normal [facility] Basic Metabolic Profile (BMP )on 12-15-2024 BUN/CRE 19.3 RATIO Normal 10-20 [facility] Comment on above: Performed By: #### L 100.0500, L500.2500 ####[facility] [address] [place], [address] Calcium [Mass/Vol] 7.9 mg/dL Normal 7.6-11.0 [facility] Comment on above: Performed By: #### L 100.0500, L500.2500 ####[facility] [address] [place], [address] Chloride [Moles/Vol] 106 mmol/L Normal 98-108 [facility] Comment on above: Performed By: #### L 100.0500, L500.2500 ####[facility] [address] [place], [address] CO2 [Moles/Vol] 14.3 mmol/L Low 21.0-32.0 [facility] Comment on above: Performed By: #### L 100.0500, L500.2500 ####[facility] [address] [place], [address] Creatinine [Mass/Vol] 0.56 mg/dL Low 0.70-1.20 [facility] Comment on above: Performed By: #### L 100.0500, L500.2500 ####[facility] [address] [place], [address] ECRCL 153.51 ml/min Normal 50-250 [facility] Comment on above: Performed By: #### L 100.0500, L500.2500 ####[facility] [address] [place], [address] GAP 17 High 5-15 [facility] Comment on above: Performed By: #### L 100.0500, L500.2500 ####[facility] [address] [place], [address] GFR/1.73 sq M.predicted among non-blacks MDRD (S/P/Bld) [Vol rate/Area] 126 mL/min/{1.73_m2} Normal >60 [facility] Comment on above: Result Comment: mL/m in/1.73m2 CKD-EPI Creatinine Equation (2020) Performed By: #### L 100.0500, L500.2500 ####[facility] [address] [place], [address] Glucose [Mass/Vol] 40 mg/dL Invalid Interpretation Code 70-99 [facility] Comment on above: Result Comment: Crit ical Result(s) Called at: 0709 by:??ROSLYN MACK Results read back by same. Performed By: #### L 100.0500, L500.2500 ####[facility] [address] [place], [address] Potassium [Moles/Vol] 3.1 mmol/L Low 3.3-5.1 [facility] Comment on above: Performed By: #### L 100.0500, L500.2500 ####[facility] [address] [place], [address] Sodium [Moles/Vol] 138 mmol/L Normal 133-145 [facility] Comment on above: Performed By: #### L 100.0500, L500.2500 ####[facility] [address] [place], [address] Urea nitrogen [Mass/Vol] 11 mg/dL Normal 4-19 [facility] Comment on above: Performed By: #### L 100.0500, L500.2500 ####[facility] [address] [place], [address] Bedside Glucoseon 12-15-2024 FINGERSTICK GLU 260 mg/dL High 74-106 [facility] Comment on above: Result Comment: EDGAR HUNG OF PATIENT CARE PER NURSING PROTOCOL Performed By: #### L 501.080 ####[facility] [address] [place], [address] FINGERSTICK GLU 307 mg/dL High 74-106 [facility] Comment on above: Result Comment: EDGAR GEMENT OF PATIENT CARE PER NURSING PROTOCOL Performed By: #### L 501.080 ####[facility] [address] [place], [address] FINGERSTICK GLU 204 mg/dL High 74-106 [facility] Comment on above: Result Comment: EDGAR GEMENT OF PATIENT CARE PER NURSING PROTOCOL Performed By: #### L 501.080 ####[facility] [address] [place], [address] FINGERSTICK GLU 77 mg/dL Normal 74-106 [facility] Comment on above: Result Comment: EDGAR GEMENT OF PATIENT CARE PER NURSING PROTOCOL Performed By: #### L 501.080 ####[facility] [address] [place], [address] FINGERSTICK GLU 34 mg/dL Invalid Interpretation Code 74-106 [facility] Comment on above: Result Comment: EDGAR GEMENT OF PATIENT CARE PER NURSING PROTOCOL Performed By: #### L 501.080 ####[facility] [address] [place], [address] FINGERSTICK GLU 109 mg/dL High 74-106 [facility] Comment on above: Result Comment: EDGAR GEMENT OF PATIENT CARE PER NURSING PROTOCOL Performed By: #### L 501.080 ####[facility] [address] [place], [address] CBC-Complete Blood Cnt No Di ffon 12-15-2024 Erythrocyte distribution width (RBC) [Ratio] 13.1 % Normal 11.6-14.6 [facility] Comment on above: Performed By: #### L 100.0500, L500.2500 ####[facility] [address] [place], [address] Hematocrit (Bld) [Volume fraction] 36.0 % Low 37-47 [facility] Comment on above: Performed By: #### L 100.0500, L500.2500 ####[facility] [address] [place], [address] Hemoglobin (Bld) [Mass/Vol] 12.2 g/dL Normal 12.0-15.0 [facility] Comment on above: Performed By: #### L 100.0500, L500.2500 ####[facility] [address] [place], [address] MCH (RBC) [Entitic mass] 30.1 pg Normal 27.0-32.0 [facility] Comment on above: Performed By: #### L 100.0500, L500.2500 ####[facility] [address] [place], [address] MCHC (RBC) [Mass/Vol] 33.9 g/dL Normal 32-36 [facility] Comment on above: Performed By: #### L 100.0500, L500.2500 ####[facility] [address] [place], [address] MCV (RBC) [Entitic vol] 88.9 fL Normal 81-99 [facility] Comment on above: Performed By: #### L 100.0500, L500.2500 ####[facility] [address] [place], [address] Platelet mean volume (Bld) [Entitic vol] 12.9 fL High 6.2-12.0 [facility] Comment on above: Performed By: #### L 100.0500, L500.2500 ####[facility] [address] [place], [address] Platelets (Bld) [#/Vol] 145 10*3/uL Low 150-450 [facility] Comment on above: Performed By: #### L 100.0500, L500.2500 ####[facility] [address] [place], [address] RBC (Bld) [#/Vol] 4.05 10*6/uL Low 4.2-5.4 [facility] Comment on above: Performed By: #### L 100.0500, L500.2500 ####[facility] [address] [place], [address] RDW SD 42.8 fl Normal 35.1-43.9 [facility] Comment on above: Performed By: #### L 100.0500, L500.2500 ####[facility] [address] [place], [address] WBC (Bld) [#/Vol] 16.4 10*3/uL High 4.4-11.0 [facility] Comment on above: Performed By: #### L 100.0500, L500.2500 ####[facility] [address] [place], [address] Basic Metabolic Profile (BMP )on 12-14-2024 BUN/CRE 17.1 RATIO Normal 10-20 [facility] Comment on above: Performed By: #### L 500.2500 ####[facility] [address] [place], [address] Calcium [Mass/Vol] 7.7 mg/dL Normal 7.6-11.0 [facility] Comment on above: Performed By: #### L 500.2500 ####[facility] [address] [place], [address] Chloride [Moles/Vol] 108 mmol/L Normal 98-108 [facility] Comment on above: Performed By: #### L 500.2500 ####[facility] [address] [place], [address] CO2 [Moles/Vol] 15.3 mmol/L Low 21.0-32.0 [facility] Comment on above: Performed By: #### L 500.2500 ####[facility] [address] [place], [address] Creatinine [Mass/Vol] 0.67 mg/dL Low 0.70-1.20 [facility] Comment on above: Performed By: #### L 500.2500 ####[facility] [address] [place], [address] ECRCL 138.78 ml/min Normal 50-250 [facility] Comment on above: Performed By: #### L 500.2500 ####[facility] [address] [place], [address] GAP 15 Normal 5-15 [facility] Comment on above: Performed By: #### L 500.2500 ####[facility] [address] [place], [address] GFR/1.73 sq M.predicted among non-blacks MDRD (S/P/Bld) [Vol rate/Area] 121 mL/min/{1.73_m2} Normal >60 [facility] Comment on above: Result Comment: mL/m in/1.73m2 CKD-EPI Creatinine Equation (2020) Performed By: #### L 500.2500 ####[facility] [address] [place], [address] Glucose [Mass/Vol] 180 mg/dL High 70-99 [facility] Comment on above: Performed By: #### L 500.2500 ####[facility] [address] [place], [address] Potassium [Moles/Vol] 3.3 mmol/L Normal 3.3-5.1 [facility] Comment on above: Performed By: #### L 500.2500 ####[facility] [address] [place], [address] Sodium [Moles/Vol] 138 mmol/L Normal 133-145 [facility] Comment on above: Performed By: #### L 500.2500 ####[facility] [address] [place], [address] Urea nitrogen [Mass/Vol] 11 mg/dL Normal 4-19 [facility] Comment on above: Performed By: #### L 500.2500 ####[facility] [address] [place], [address] Bedside Glucoseon 12-14-2024 FINGERSTICK GLU 186 mg/dL High 74-106 [facility] Comment on above: Result Comment: EDGAR GEMENT OF PATIENT CARE PER NURSING PROTOCOL Performed By: #### L 501.080 ####[facility] [address] [place], [address] FINGERSTICK GLU 291 mg/dL High 74-106 [facility] Comment on above: Result Comment: EDGAR GEMENT OF PATIENT CARE PER NURSING PROTOCOL Performed By: #### L 501.080 ####[facility] [address] [place], [address] FINGERSTICK GLU 352 mg/dL High 74-106 [facility] Comment on above: Result Comment: EDGAR GEMENT OF PATIENT CARE PER NURSING PROTOCOL Performed By: #### L 501.080 ####[facility] [address] [place], [address] Beta-Hydroxbytyrateon 2024 BETA-HYDROXYBUT 1.9 mmol/L Normal 0.0-0.3 [facility] Comment on above: Performed By: #### L 501.6901, L500.4050, L501.2450, L700.6800 ####[facility] [address] [place], [address] CBC W/Diff, Automatedon 11-26 Absolute Lymph 2.40 X10 3/uL Normal 0.83-4.51 [facility] Comment on above: Performed By: #### L 100.0100 ####[facility] [address] [place], [address] Absolute Neut 12.5 X10 3/uL High 2.0-7.7 [facility] Comment on above: Performed By: #### L 100.0100 ####[facility] [address] [place], [address] Basophils/100 WBC (Bld) 0.4 % Normal 0-1 [facility] Comment on above: Performed By: #### L 100.0100 ####[facility] [address] [place], [address] Eosinophils/100 WBC (Bld) 0.1 % Normal 0-5 [facility] Comment on above: Performed By: #### L 100.0100 ####[facility] [address] [place], [address] Erythrocyte distribution width (RBC) [Ratio] 12.9 % Normal 11.6-14.6 [facility] Comment on above: Performed By: #### L 100.0100 ####[facility] [address] [place], [address] Hematocrit (Bld) [Volume fraction] 39.9 % Normal 37-47 [facility] Comment on above: Performed By: #### L 100.0100 ####[facility] [address] [place], [address] Hemoglobin (Bld) [Mass/Vol] 13.7 g/dL Normal 12.0-15.0 [facility] Comment on above: Performed By: #### L 100.0100 ####[facility] [address] [place], [address] IG% 0.800 Normal 0.0-0.9 [facility] Comment on above: Result Comment: IG% - Immature Granulocytes (promyelocytes, myelocytes andmetamyelocytes) > 1% indicates that a LEFT SHIFT is Present. Performed By: #### L 100.0100 ####[facility] [address] [place], [address] Lymphocytes/100 WBC (Bld) 15.1 % Low 19-41 [facility] Comment on above: Performed By: #### L 100.0100 ####[facility] [address] [place], [address] MCH (RBC) [Entitic mass] 29.7 pg Normal 27.0-32.0 [facility] Comment on above: Performed By: #### L 100.0100 ####[facility] [address] [place], [address] MCHC (RBC) [Mass/Vol] 34.3 g/dL Normal 32-36 [facility] Comment on above: Performed By: #### L 100.0100 ####[facility] [address] [place], [address] MCV (RBC) [Entitic vol] 86.4 fL Normal 81-99 [facility] Comment on above: Performed By: #### L 100.0100 ####[facility] [address] [place], [address] Monocytes/100 WBC (Bld) 4.9 % Normal 0-10 [facility] Comment on above: Performed By: #### L 100.0100 ####[facility] [address] [place], [address] Neutrophils/100 WBC (Bld) 78.7 % High 47-70 [facility] Comment on above: Performed By: #### L 100.0100 ####[facility] [address] [place], [address] Nucleated RBC (Bld) [#/Vol] 0 10*3/uL Normal 0-5 [facility] Comment on above: Performed By: #### L 100.0100 ####[facility] [address] [place], [address] Platelet mean volume (Bld) [Entitic vol] 12.6 fL High 6.2-12.0 [facility] Comment on above: Performed By: #### L 100.0100 ####[facility] [address] [place], [address] Platelets (Bld) [#/Vol] 159 10*3/uL Normal 150-450 [facility] Comment on above: Performed By: #### L 100.0100 ####[facility] [address] [place], [address] RBC (Bld) [#/Vol] 4.62 10*6/uL Normal 4.2-5.4 [facility] Comment on above: Performed By: #### L 100.0100 ####[facility] [address] [place], [address] RDW SD 40.1 fl Normal 35.1-43.9 [facility] Comment on above: Performed By: #### L 100.0100 ####[facility] [address] [place], [address] WBC (Bld) [#/Vol] 15.9 10*3/uL High 4.4-11.0 [facility] Comment on above: Performed By: #### L 100.0100 ####[facility] [address] [place], [address] Comprehensive Metabolic Prof [facility] 12-14-2024 Albumin [Mass/Vol] 4.2 g/dL Normal 3.5-5.0 [facility] Comment on above: Performed By: #### L 501.6901, L500.4050, L501.2450, L700.6800 ####[facility] [address] [place], [address] Albumin/Globulin [Mass ratio] 1.8 {ratio} Normal 0.9-2.4 [facility] Comment on above: Performed By: #### L 501.6901, L500.4050, L501.2450, L700.6800 ####[facility] [address] [place], [address] ALK PHOS 76 U/L Normal 35-104 [facility] Comment on above: Performed By: #### L 501.6901, L500.4050, L501.2450, L700.6800 ####[facility] [address] [place], [address] ALT [Catalytic activity/Vol] 11 U/L Normal <=34 [facility] Comment on above: Performed By: #### L 501.6901, L500.4050, L501.2450, L700.6800 ####[facility] [address] [place], [address] AST [Catalytic activity/Vol] 16 U/L Normal <=31 [facility] Comment on above: Performed By: #### L 501.6901, L500.4050, L501.2450, L700.6800 ####[facility] [address] [place], [address] Bilirubin [Mass/Vol] 0.92 mg/dL Normal 0.00-1.30 [facility] Comment on above: Performed By: #### L 501.6901, L500.4050, L501.2450, L700.6800 ####[facility] [address] [place], [address] BUN/CRE 18.2 RATIO Normal 10-20 [facility] Comment on above: Performed By: #### L 501.6901, L500.4050, L501.2450, L700.6800 ####[facility] [address] [place], [address] Calcium [Mass/Vol] 8.2 mg/dL Normal 7.6-11.0 [facility] Comment on above: Performed By: #### L 501.6901, L500.4050, L501.2450, L700.6800 ####[facility] [address] [place], [address] Chloride [Moles/Vol] 104 mmol/L Normal 98-108 [facility] Comment on above: Performed By: #### L 501.6901, L500.4050, L501.2450, L700.6800 ####[facility] [address] [place], [address] CO2 [Moles/Vol] 15.1 mmol/L Low 21.0-32.0 [facility] Comment on above: Performed By: #### L 501.6901, L500.4050, L501.2450, L700.6800 ####[facility] [address] [place], [address] Creatinine [Mass/Vol] 0.74 mg/dL Normal 0.70-1.20 [facility] Comment on above: Performed By: #### L 501.6901, L500.4050, L501.2450, L700.6800 ####[facility] [address] [place], [address] ECRCL 125.65 ml/min Normal 50-250 [facility] Comment on above: Performed By: #### L 501.6901, L500.4050, L501.2450, L700.6800 ####[facility] [address] [place], [address] GAP 17 High 5-15 [facility] Comment on above: Performed By: #### L 501.6901, L500.4050, L501.2450, L700.6800 ####[facility] [address] [place], [address] GFR/1.73 sq M.predicted among non-blacks MDRD (S/P/Bld) [Vol rate/Area] 112 mL/min/{1.73_m2} Normal >60 [facility] Comment on above: Result Comment: mL/m in/1.73m2 CKD-EPI Creatinine Equation (2020) Performed By: #### L 501.6901, L500.4050, L501.2450, L700.6800 ####[facility] [address] [place], [address] Globulin (S) [Mass/Vol] 2.4 g/dL Normal 2.2-4.2 [facility] Comment on above: Performed By: #### L 501.6901, L500.4050, L501.2450, L700.6800 ####[facility] [address] [place], [address] Glucose [Mass/Vol] 329 mg/dL High 70-99 [facility] Comment on above: Performed By: #### L 501.6901, L500.4050, L501.2450, L700.6800 ####[facility] [address] [place], [address] Potassium [Moles/Vol] 3.6 mmol/L Normal 3.3-5.1 [facility] Comment on above: Performed By: #### L 501.6901, L500.4050, L501.2450, L700.6800 ####[facility] [address] [place], [address] Sodium [Moles/Vol] 136 mmol/L Normal 133-145 [facility] Comment on above: Performed By: #### L 501.6901, L500.4050, L501.2450, L700.6800 ####[facility] [address] [place], [address] T PROT 6.5 g/dL Normal 5.9-8.4 [facility] Comment on above: Performed By: #### L 501.6901, L500.4050, L501.2450, L700.6800 ####[facility] [address] [place], [address] Urea nitrogen [Mass/Vol] 13 mg/dL Normal 4-19 [facility] Comment on above: Performed By: #### L 501.6901, L500.4050, L501.2450, L700.6800 ####[facility] [address] [place], [address] Emergency Department Summary on 12-14-2024 Emergency Department Summary Normal [facility] H AND P Exam - Hospitaliston 12-14-2024 H&P Exam - Hospitalist Normal [facility] Lipaseon 12-14-2024 Lipase [Catalytic activity/Vol] 13 U/L Normal 13-75 [facility] Comment on above: Result Comment: Sulma schmitz note:LIPASE revised reference range effective 22.New Lipase methodology. Expected to produce lower valuesthan the previous assay method.NEW Reference Range: 13 - 75 U/L Performed By: #### L 501.6901, L500.4050, L501.2450, L700.6800 ####[facility] [address] [place], [address] Magnesiumon 12-14-2024 Magnesium [Mass/Vol] 1.5 mg/dL Normal 1.5-2.2 [facility] Comment on above: Performed By: #### L 501.2300, L501.5200 ####[facility] [address] [place], [address] Phosphoruson 12-14-2024 Phosphate [Mass/Vol] 1.4 mg/dL Invalid Interpretation Code 2.7-4.5 [facility] Comment on above: Performed By: #### L 501.2300, L501.5200 ####[facility] [address] [place], [address] ,Serum,hCG Quali.on 12-14-2024 HCG, SERUM QUAL Negative Normal [facility] Comment on above: Performed By: #### L 501.6901, L500.4050, L501.2450, L700.6800 ####[facility] [address] [place], [address] Urinalysis, Completeon 12-14 EPI,SQUAMOUS 0-5 SEEN Normal 5-10 [facility] Comment on above: Order Comment: CLEAN CATCH Performed By: #### L 400.0001 ####[facility] [address] [place], [address] BACTERIA 0 SEEN Normal None Seen [facility] Comment on above: Order Comment: CLEAN CATCH Performed By: #### L 400.0001 ####[facility] [address] [place], [address] Mucus Ql (Urine sed) 0 SEEN Normal [facility] Comment on above: Order Comment: CLEAN CATCH Performed By: #### L 400.0001 ####[facility] [address] [place], [address] RBC 0 SEEN Normal 0-5 [facility] Comment on above: Order Comment: CLEAN CATCH Performed By: #### L 400.0001 ####[facility] [address] [place], [address] WBC 0 SEEN Normal 0-5 [facility] Comment on above: Order Comment: CLEAN CATCH Performed By: #### L 400.0001 ####[facility] [address] [place], [address] Venous Blood Gason 5 Blood Gas Type ISABELLE Normal [facility] Comment on above: Performed By: #### L 9000.0810 ####[facility] [address] [place], [address] CO2 [Moles/Vol] 16 mmol/L Low 23-33 [facility] Comment on above: Performed By: #### L 9000.0810 ####[facility] [address] [place], [address] HCO3 (Bld) [Moles/Vol] 15 mmol/L Low 22-26 [facility] Comment on above: Performed By: #### L 9000.0810 ####[facility] [address] [place], [address] O2 Delivery Dev Room Air Normal [facility] Comment on above: Performed By: #### L 9000.0810 ####[facility] [address] [place], [address] SITE Not entered Normal [facility] Comment on above: Performed By: #### L 9000.0810 ####[facility] [address] [place], [address] VBG BE -9 mmol/L Low -1.0-3.5 [facility] Comment on above: Performed By: #### L 9000.0810 ####[facility] [address] [place], [address] VBG pCO2 21.7 mmHg Low 41-51 [facility] Comment on above: Performed By: #### L 9000.0810 ####[facility] [address] [place], [address] VBG pH 7.45 High 7.32-7.42 [facility] Comment on above: Performed By: #### L 9000.0810 ####[facility] [address] [place], [address] VBG PO2 43 mmHg High 25-40 [facility] Comment on above: Performed By: #### L 9000.0810 ####[facility] [address] [place], [address] VBG SO2 83 High 50-70 [facility] Comment on above: Performed By: #### L 9000.0810 ####[facility] [address] [place], [address] CBC W/Diff, Automatedon 04-0 PLT EST ADEQUATE Normal ADEQ [facility] Comment on above: Performed By: #### L 501.9520, L100.0100, L501.9985, L506.1001, L500.4050, L509.6001, L503.6030 ####[facility] [address] [place], [address] Comprehensive Metabolic Prof ilon 11-28-2024 Albumin [Mass/Vol] 4.1 g/dL Normal 3.5-5.0 [facility] Comment on above: Performed By: #### L 501.9520, L100.0100, L501.9985, L506.1001, L500.4050, L509.6001, L503.6030 ####[facility] [address] [place], [address] Albumin/Globulin [Mass ratio] 1.8 {ratio} Normal 0.9-2.4 [facility] Comment on above: Performed By: #### L 501.9520, L100.0100, L501.9985, L506.1001, L500.4050, L509.6001, L503.6030 ####[facility] [address] [place], [address] ALK PHOS 68 U/L Normal 35-104 [facility] Comment on above: Performed By: #### L 501.9520, L100.0100, L501.9985, L506.1001, L500.4050, L509.6001, L503.6030 ####[facility] [address] [place], [address] ALT [Catalytic activity/Vol] 6 U/L Normal <=34 [facility] Comment on above: Performed By: #### L 501.9520, L100.0100, L501.9985, L506.1001, L500.4050, L509.6001, L503.6030 ####[facility] [address] [place], [address] AST [Catalytic activity/Vol] 16 U/L Normal <=31 [facility] Comment on above: Performed By: #### L 501.9520, L100.0100, L501.9985, L506.1001, L500.4050, L509.6001, L503.6030 ####[facility] [address] [place], [address] Bilirubin [Mass/Vol] 0.29 mg/dL Normal 0.00-1.30 [facility] Comment on above: Performed By: #### L 501.9520, L100.0100, L501.9985, L506.1001, L500.4050, L509.6001, L503.6030 ####[facility] [address] [place], [address] BUN/CRE 19.9 RATIO Normal 10-20 [facility] Comment on above: Performed By: #### L 501.9520, L100.0100, L501.9985, L506.1001, L500.4050, L509.6001, L503.6030 ####[facility] [address] [place], [address] Calcium [Mass/Vol] 9.1 mg/dL Normal 7.6-11.0 [facility] Comment on above: Performed By: #### L 501.9520, L100.0100, L501.9985, L506.1001, L500.4050, L509.6001, L503.6030 ####[facility] [address] [place], [address] Chloride [Moles/Vol] 107 mmol/L Normal 98-108 [facility] Comment on above: Performed By: #### L 501.9520, L100.0100, L501.9985, L506.1001, L500.4050, L509.6001, L503.6030 ####[facility] [address] [place], [address] CO2 [Moles/Vol] 20.4 mmol/L Low 21.0-32.0 [facility] Comment on above: Performed By: #### L 501.9520, L100.0100, L501.9985, L506.1001, L500.4050, L509.6001, L503.6030 ####[facility] [address] [place], [address] Creatinine [Mass/Vol] 0.59 mg/dL Low 0.70-1.20 [facility] Comment on above: Performed By: #### L 501.9520, L100.0100, L501.9985, L506.1001, L500.4050, L509.6001, L503.6030 ####[facility] [address] [place], [address] GAP 11 Normal 5-15 [facility] Comment on above: Performed By: #### L 501.9520, L100.0100, L501.9985, L506.1001, L500.4050, L509.6001, L503.6030 ####[facility] [address] [place], [address] GFR/1.73 sq M.predicted among non-blacks MDRD (S/P/Bld) [Vol rate/Area] 124 mL/min/{1.73_m2} Normal >60 [facility] Comment on above: Result Comment: mL/m in/1.73m2 CKD-EPI Creatinine Equation (2020) Performed By: #### L 501.9520, L100.0100, L501.9985, L506.1001, L500.4050, L509.6001, L503.6030 ####[facility] [address] [place], [address] Globulin (S) [Mass/Vol] 2.3 g/dL Normal 2.2-4.2 [facility] Comment on above: Performed By: #### L 501.9520, L100.0100, L501.9985, L506.1001, L500.4050, L509.6001, L503.6030 ####[facility] [address] [place], [address] Glucose [Mass/Vol] 222 mg/dL High 70-99 [facility] Comment on above: Performed By: #### L 501.9520, L100.0100, L501.9985, L506.1001, L500.4050, L509.6001, L503.6030 ####[facility] [address] [place], [address] Potassium [Moles/Vol] 4.2 mmol/L Normal 3.3-5.1 [facility] Comment on above: Performed By: #### L 501.9520, L100.0100, L501.9985, L506.1001, L500.4050, L509.6001, L503.6030 ####[facility] [address] [place], [address] Sodium [Moles/Vol] 138 mmol/L Normal 133-145 [facility] Comment on above: Performed By: #### L 501.9520, L100.0100, L501.9985, L506.1001, L500.4050, L509.6001, L503.6030 ####[facility] [address] [place], [address] T PROT 6.4 g/dL Normal 5.9-8.4 [facility] Comment on above: Performed By: #### L 501.9520, L100.0100, L501.9985, L506.1001, L500.4050, L509.6001, L503.6030 ####[facility] [address] [place], [address] Urea nitrogen [Mass/Vol] 12 mg/dL Normal 4-19 [facility] Comment on above: Performed By: #### L 501.9520, L100.0100, L501.9985, L506.1001, L500.4050, L509.6001, L503.6030 ####[facility] [address] [place], [address] Hemoglobin A1con 11-28-2024 HbA1c (Bld) [Mass fraction] 10.1 % Normal <=5.6 [facility] Comment on above: Performed By: #### L 501.9520, L100.0100, L501.9985, L506.1001, L500.4050, L509.6001, L503.6030 ####[facility] [address] [place], [address] Iron+Iron Binding Capacityon 11-28-2024 Iron [Mass/Vol] 71 ug/dL Normal 50-170 [facility] Comment on above: Performed By: #### L 501.9520, L100.0100, L501.9985, L506.1001, L500.4050, L509.6001, L503.6030 ####[facility] [address] [place], [address] IRON SATURATION 28.0 Normal 13-59 [facility] Comment on above: Performed By: #### L 501.9520, L100.0100, L501.9985, L506.1001, L500.4050, L509.6001, L503.6030 ####[facility] [address] [place], [address] TIBC 248 ug/dL Low 250-450 [facility] Comment on above: Performed By: #### L 501.9520, L100.0100, L501.9985, L506.1001, L500.4050, L509.6001, L503.6030 ####[facility] [address] [place], [address] UIBC 177 ug/dL Low 228-428 [facility] Comment on above: Performed By: #### L 501.9520, L100.0100, L501.9985, L506.1001, L500.4050, L509.6001, L503.6030 ####[facility] [address] [place], [address] L509.6001on 11-28-2024 CORTISOL 5.66 ug/dL Low 6.02-18.40 [facility] Comment on above: Performed By: #### L 501.9520, L100.0100, L501.9985, L506.1001, L500.4050, L509.6001, L503.6030 ####[facility] [address] [place], [address] Thyroid Stim Hormone (TSH)on 11-28-2024 TSH 0.451 uIU/mL Normal 0.300-4.200 [facility] Comment on above: Performed By: #### L 501.9520, L100.0100, L501.9985, L506.1001, L500.4050, L509.6001, L503.6030 ####[facility] [address] [place], [address] Vitamin D,25 Hydroxyon 11-28 Vitamin D 25-OH 15.7 ng/mL Low 30-100 [facility] Comment on above: Result Comment: Shira min D StatusDeficiency: <20 ng/mL (50nmol/L)Insufficiency: 20-30 ng/mL (50-75 nmol/L)Sufficiency: 30-100 ng/mL (75-250 nmol/L)Toxicity: >100 ng/mL (>250 nmol/L) Performed By: #### L 501.9520, L100.0100, L501.9985, L506.1001, L500.4050, L509.6001, L503.6030 ####[facility] [address] [place], [address] CNCOon 11-13-2024 CNCO Letter Text Normal [facility] CNOVon 11-11-2024 CNOV Office Visit ([facility] ) KATHLEEN VILLA ([id number]) 1995 F CHT Date Time Provider Department [...] every 24 hours. 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 Normal [facility] Dipak 11-11-2024 [facility]) DAISYKATHLEEN Swain ([id number]) 1995 F CHT Date Time Provider Department 11/11/24 LETICIA HYLTON [facility] During your visit today, we [...] Units subcutaneously every 24 hours. - Insulin [place], Disposable, (PEN NEEDLE) 32 gauge x Inject [...] (post-traumatic stress disorder) [F43.10] 12/25/2012 DVT prophylaxis [QER1038] 12/25/2012 09/04/2013 DISPOSITION AND FOLLOW-UP [V999.01] 12/25/2012 09/04/2013 HTN (hypertension) [I10] Hypertension in , antepartum [O16.9] 09/19/2013 01/08/2014 GBS (group B Streptococcus carrier), +RV cultur*11/11/2013 04/16/2014 [Z34.90] 11/22/2013 04/16/2014 Diabetes mellitus in (HCC) [O24.919] 12/25/2013 04/16/2014 Diabetic ketoacidosis without coma associated w*01/08/2014 02/04/2023 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] 01/08/2014 DVT prophylaxis [HBL7264] 02/25/2014 04/16/2014 care and examination [Z39.2] 02/25/2014 [...] 1 d (more content not included)... Normal [facility] XR ABDOMEN 1V SUPINEon 11-11 XR ABDOMEN [...] Nov 11 2024 11:13AM EST [id number] Normal [facility] XR Abdomen Supine and Uprigh ton 11-11-2024 IMPRESSION: Moderate-large colonic stool burden. No dilated bowel. Transcribed Using Voice Recognition Transcribe Date/Time: Nov 11 2024 11:10A Dictated by: TRES EVANS DO This examination was interpreted and the report reviewed and electronically signed by: TRES EVASN DO on Nov 11 2024 11:13AM EST [facility] * * *Final Report* * [...] right lower abdomen/pelvis. No acute bony abnormality. [facility] Provider, [facility] Prabha Quebeck - 11/11/2024 * * *Final Report* * [...] DO on Nov 11 2024 11:13AM EST [facility] Radiology Study observation (narrative) [facility] XR Abdomen Supine and Uprigh tOrdered By: [facility] Provider on 11-11-2024 [facility] Basic Metabolic Profile (BMP )on 11-06-2024 BUN/CRE 16.8 RATIO Normal 10-20 [facility] Comment on above: Performed By: #### L 500.2500 ####[facility] [address] [place], [address] Calcium [Mass/Vol] 8.0 mg/dL Normal 7.6-11.0 [facility] Comment on above: Performed By: #### L 500.2500 ####[facility] [address] [place], [address] Chloride [Moles/Vol] 104 mmol/L Normal 98-108 [facility] Comment on above: Performed By: #### L 500.2500 ####[facility] [address] [place], [address] CO2 [Moles/Vol] 21.1 mmol/L Normal 21.0-32.0 [facility] Comment on above: Performed By: #### L 500.2500 ####[facility] [address] [place], [address] Creatinine [Mass/Vol] 0.64 mg/dL Low 0.70-1.20 [facility] Comment on above: Performed By: #### L 500.2500 ####[facility] [address] [place], [address] ECRCL 134.33 ml/min Normal 50-250 [facility] Comment on above: Performed By: #### L 500.2500 ####[facility] [address] [place], [address] GAP 12 Normal 5-15 [facility] Comment on above: Performed By: #### L 500.2500 ####[facility] [address] [place], [address] GFR/1.73 sq M.predicted among non-blacks MDRD (S/P/Bld) [Vol rate/Area] 122 mL/min/{1.73_m2} Normal >60 [facility] Comment on above: Result Comment: mL/m in/1.73m2 CKD-EPI Creatinine Equation (2020) Performed By: #### L 500.2500 ####[facility] [address] [place], [address] Glucose [Mass/Vol] 64 mg/dL Low 70-99 [facility] Comment on above: Performed By: #### L 500.2500 ####[facility] [address] [place], [address] Potassium [Moles/Vol] 3.3 mmol/L Normal 3.3-5.1 [facility] Comment on above: Performed By: #### L 500.2500 ####[facility] [address] [place], [address] Sodium [Moles/Vol] 137 mmol/L Normal 133-145 [facility] Comment on above: Performed By: #### L 500.2500 ####[facility] [address] [place], [address] Urea nitrogen [Mass/Vol] 11 mg/dL Normal 4-19 [facility] Comment on above: Performed By: #### L 500.2500 ####[facility] [address] [place], [address] Bedside Glucoseon 11-06-2024 FINGERSTICK GLU 100 mg/dL Normal 74-106 [facility] Comment on above: Result Comment: EDGAR GEMENT OF PATIENT CARE PER NURSING PROTOCOL Performed By: #### L 501.080 ####[facility] [address] [place], [address] FINGERSTICK GLU 151 mg/dL High 74-106 [facility] Comment on above: Result Comment: EDGAR GEMENT OF PATIENT CARE PER NURSING PROTOCOL Performed By: #### L 501.080 ####[facility] [address] [place], [address] FINGERSTICK GLU 153 mg/dL High 74-106 [facility] Comment on above: Result Comment: EDGAR GEMENT OF PATIENT CARE PER NURSING PROTOCOL Performed By: #### L 501.080 ####[facility] [address] [place], [address] FINGERSTICK GLU 50 mg/dL Low 74-106 [facility] Comment on above: Result Comment: EDGAR GEMENT OF PATIENT CARE PER NURSING PROTOCOL Performed By: #### L 501.080 ####[facility] [address] [place], [address] FINGERSTICK GLU 141 mg/dL High 74-106 [facility] Comment on above: Result Comment: EDGAR GEMENT OF PATIENT CARE PER NURSING PROTOCOL Performed By: #### L 501.080 ####[facility] [address] [place], [address] FINGERSTICK GLU 129 mg/dL High 74-106 [facility] Comment on above: Result Comment: EDGAR GEMENT OF PATIENT CARE PER NURSING PROTOCOL Performed By: #### L 501.080 ####[facility] [address] [place], [address] CBC W/Diff, Automatedon 10-26 Absolute Lymph 2.60 X10 3/uL Normal 0.83-4.51 [facility] Comment on above: Performed By: #### L 100.0100 ####[facility] [address] [place], [address] Absolute Neut 7.6 X10 3/uL Normal 2.0-7.7 [facility] Comment on above: Performed By: #### L 100.0100 ####[facility] [address] [place], [address] Basophils/100 WBC (Bld) 0.5 % Normal 0-1 [facility] Comment on above: Performed By: #### L 100.0100 ####[facility] [address] [place], [address] Eosinophils/100 WBC (Bld) 0.4 % Normal 0-5 [facility] Comment on above: Performed By: #### L 100.0100 ####[facility] [address] [place], [address] Erythrocyte distribution width (RBC) [Ratio] 13.7 % Normal 11.6-14.6 [facility] Comment on above: Performed By: #### L 100.0100 ####[facility] [address] [place], [address] Hematocrit (Bld) [Volume fraction] 36.0 % Low 37-47 [facility] Comment on above: Performed By: #### L 100.0100 ####[facility] [address] [place], [address] Hemoglobin (Bld) [Mass/Vol] 12.2 g/dL Normal 12.0-15.0 [facility] Comment on above: Performed By: #### L 100.0100 ####[facility] [address] [place], [address] IG% 1.000 High 0.0-0.9 [facility] Comment on above: Result Comment: IG% - Immature Granulocytes (promyelocytes, myelocytes andmetamyelocytes) > 1% indicates that a LEFT SHIFT is Present. Performed By: #### L 100.0100 ####[facility] [address] [place], [address] Lymphocytes/100 WBC (Bld) 23.4 % Normal 19-41 [facility] Comment on above: Performed By: #### L 100.0100 ####[facility] [address] [place], [address] MCH (RBC) [Entitic mass] 29.7 pg Normal 27.0-32.0 [facility] Comment on above: Performed By: #### L 100.0100 ####[facility] [address] [place], [address] MCHC (RBC) [Mass/Vol] 33.9 g/dL Normal 32-36 [facility] Comment on above: Performed By: #### L 100.0100 ####[facility] [address] [place], [address] MCV (RBC) [Entitic vol] 87.6 fL Normal 81-99 [facility] Comment on above: Performed By: #### L 100.0100 ####[facility] [address] [place], [address] Monocytes/100 WBC (Bld) 6.7 % Normal 0-10 [facility] Comment on above: Performed By: #### L 100.0100 ####[facility] [address] [place], [address] Neutrophils/100 WBC (Bld) 68.0 % Normal 47-70 [facility] Comment on above: Performed By: #### L 100.0100 ####[facility] [address] [place], [address] Nucleated RBC (Bld) [#/Vol] 0 10*3/uL Normal 0-5 [facility] Comment on above: Performed By: #### L 100.0100 ####[facility] [address] [place], [address] Platelet mean volume (Bld) [Entitic vol] 10.8 fL Normal 6.2-12.0 [facility] Comment on above: Performed By: #### L 100.0100 ####[facility] [address] [place], [address] Platelets (Bld) [#/Vol] 188 10*3/uL Normal 150-450 [facility] Comment on above: Performed By: #### L 100.0100 ####[facility] [address] [place], [address] RBC (Bld) [#/Vol] 4.11 10*6/uL Low 4.2-5.4 [facility] Comment on above: Performed By: #### L 100.0100 ####[facility] [address] [place], [address] RDW SD 43.6 fl Normal 35.1-43.9 [facility] Comment on above: Performed By: #### L 100.0100 ####[facility] [address] [place], [address] WBC (Bld) [#/Vol] 11.1 10*3/uL High 4.4-11.0 [facility] Comment on above: Performed By: #### L 100.0100 ####[facility] [address] [place], [address] Comprehensive Metabolic Prof ilon 11-06-2024 Albumin [Mass/Vol] 3.6 g/dL Normal 3.5-5.0 [facility] Comment on above: Order Comment: CMP-T IMED FOR A Q6 BMP Performed By: #### L 501.2300, L501.5200, L500.4050 ####[facility] [address] [place], [address] Albumin/Globulin [Mass ratio] 1.6 {ratio} Normal 0.9-2.4 [facility] Comment on above: Order Comment: CMP-T IMED FOR A Q6 BMP Performed By: #### L 501.2300, L501.5200, L500.4050 ####[facility] [address] [place], [address] ALK PHOS 76 U/L Normal 35-104 [facility] Comment on above: Order Comment: CMP-T IMED FOR A Q6 BMP Performed By: #### L 501.2300, L501.5200, L500.4050 ####[facility] [address] [place], [address] ALT [Catalytic activity/Vol] 14 U/L Normal <=34 [facility] Comment on above: Order Comment: CMP-T IMED FOR A Q6 BMP Performed By: #### L 501.2300, L501.5200, L500.4050 ####[facility] [address] [place], [address] AST [Catalytic activity/Vol] 17 U/L Normal <=31 [facility] Comment on above: Order Comment: CMP-T IMED FOR A Q6 BMP Performed By: #### L 501.2300, L501.5200, L500.4050 ####[facility] [address] [place], [address] Bilirubin [Mass/Vol] 0.91 mg/dL Normal 0.00-1.30 [facility] Comment on above: Order Comment: CMP-T IMED FOR A Q6 BMP Performed By: #### L 501.2300, L501.5200, L500.4050 ####[facility] [address] [place], [address] BUN/CRE 12.2 RATIO Normal 10-20 [facility] Comment on above: Order Comment: CMP-T IMED FOR A Q6 BMP Performed By: #### L 501.2300, L501.5200, L500.4050 ####[facility] [address] [place], [address] Calcium [Mass/Vol] 8.2 mg/dL Normal 7.6-11.0 [facility] Comment on above: Order Comment: CMP-T IMED FOR A Q6 BMP Performed By: #### L 501.2300, L501.5200, L500.4050 ####[facility] [address] [place], [address] Chloride [Moles/Vol] 105 mmol/L Normal 98-108 [facility] Comment on above: Order Comment: CMP-T IMED FOR A Q6 BMP Performed By: #### L 501.2300, L501.5200, L500.4050 ####[facility] [address] [place], [address] CO2 [Moles/Vol] 22.2 mmol/L Normal 21.0-32.0 [facility] Comment on above: Order Comment: CMP-T IMED FOR A Q6 BMP Performed By: #### L 501.2300, L501.5200, L500.4050 ####[facility] [address] [place], [address] Creatinine [Mass/Vol] 0.61 mg/dL Low 0.70-1.20 [facility] Comment on above: Order Comment: CMP-T IMED FOR A Q6 BMP Performed By: #### L 501.2300, L501.5200, L500.4050 ####[facility] [address] [place], [address] ECRCL 140.93 ml/min Normal 50-250 [facility] Comment on above: Order Comment: CMP-T IMED FOR A Q6 BMP Performed By: #### L 501.2300, L501.5200, L500.4050 ####[facility] [address] [place], [address] GAP 11 Normal 5-15 [facility] Comment on above: Order Comment: CMP-T IMED FOR A Q6 BMP Performed By: #### L 501.2300, L501.5200, L500.4050 ####[facility] [address] [place], [address] GFR/1.73 sq M.predicted among non-blacks MDRD (S/P/Bld) [Vol rate/Area] 123 mL/min/{1.73_m2} Normal >60 [facility] Comment on above: Order Comment: CMP-T IMED FOR A Q6 BMP Result Comment: mL/m in/1.73m2 CKD-EPI Creatinine Equation (2020) Performed By: #### L 501.2300, L501.5200, L500.4050 ####[facility] [address] [place], [address] Globulin (S) [Mass/Vol] 2.2 g/dL Normal 2.2-4.2 [facility] Comment on above: Order Comment: CMP-T IMED FOR A Q6 BMP Performed By: #### L 501.2300, L501.5200, L500.4050 ####[facility] [address] [place], [address] Glucose [Mass/Vol] 122 mg/dL High 70-99 [facility] Comment on above: Order Comment: CMP-T IMED FOR A Q6 BMP Performed By: #### L 501.2300, L501.5200, L500.4050 ####[facility] [address] [place], [address] Potassium [Moles/Vol] 3.4 mmol/L Normal 3.3-5.1 [facility] Comment on above: Order Comment: CMP-T IMED FOR A Q6 BMP Performed By: #### L 501.2300, L501.5200, L500.4050 ####[facility] [address] [place], [address] Sodium [Moles/Vol] 138 mmol/L Normal 133-145 [facility] Comment on above: Order Comment: CMP-T IMED FOR A Q6 BMP Performed By: #### L 501.2300, L501.5200, L500.4050 ####[facility] [address] [place], [address] T PROT 5.9 g/dL Normal 5.9-8.4 [facility] Comment on above: Order Comment: CMP-T IMED FOR A Q6 BMP Performed By: #### L 501.2300, L501.5200, L500.4050 ####[facility] [address] [place], [address] Urea nitrogen [Mass/Vol] 7 mg/dL Normal 4-19 [facility] Comment on above: Order Comment: CMP-T IMED FOR A Q6 BMP Performed By: #### L 501.2300, L501.5200, L500.4050 ####[facility] [address] [place], [address] Discharge Instructionon 10-26 Discharge Instruction Normal [facility] Magnesiumon 11-06-2024 Magnesium [Mass/Vol] 2.2 mg/dL Normal 1.5-2.2 [facility] Comment on above: Order Comment: CMP-T IMED FOR A Q6 BMP Performed By: #### L 501.2300, L501.5200, L500.4050 ####[facility] [address] [place], [address] Phosphoruson 11-06-2024 Phosphate [Mass/Vol] 2.1 mg/dL Low 2.7-4.5 [facility] Comment on above: Order Comment: CMP-T IMED FOR A Q6 BMP Performed By: #### L 501.2300, L501.5200, L500.4050 ####[facility] [address] [place], [address] Urine Drug Screen (VISTA)on 11-06-2024 AMPHETAMINES Negative Normal <1000 ng/mL [facility] Comment on above: Performed By: #### L 505.5000 ####[facility] [address] [place], [address] BARBITIURATES Negative Normal < 200 ng/mL [facility] Comment on above: Performed By: #### L 505.5000 ####[facility] [address] [place], [address] BENZODIAZIPINE Negative Normal < 200 ng/mL [facility] Comment on above: Performed By: #### L 505.5000 ####[facility] [address] [place], [address] BUP Ur Drug Scr Negative Normal < 200 ng/mL [facility] Comment on above: Performed By: #### L 505.5000 ####[facility] [address] [place], [place], [phone] COCAINE Negative Normal < 300 ng/mL [facility] Comment on above: Performed By: #### L 505.5000 ####[facility] [address] [place], [address] Fentanyl Negative Normal [facility] Comment on above: Performed By: #### L 505.5000 ####[facility] [address] [place], [address] METHADONE Negative Normal < 300 ng/mL [facility] Comment on above: Performed By: #### L 505.5000 ####[facility] [address] [place], [address] OPIATES Negative Normal < 300 ng/mL [facility] Comment on above: Performed By: #### L 505.5000 ####[facility] [address] [place], [address] OXYCODONE Negative Normal < 100 ng/mL [facility] Comment on above: Performed By: #### L 505.5000 ####[facility] [address] [place], [address] PCP Negative Normal < 25 ng/mL [facility] Comment on above: Performed By: #### L 505.5000 ####[facility] [address] [place], [address] THC Positive Normal < 50 ng/mL [facility] Comment on above: Result Comment: If c onfirmation testing is needed, a separate order will berequired to send out testing to the reference laboratory. Performed By: #### L 505.5000 ####[facility] [address] [place], [address] Basic Metabolic Profile (BMP )on 11-05-2024 BUN/CRE 18.5 RATIO Normal 10-20 [facility] Comment on above: Performed By: #### L 500.2500 ####[facility] [address] [place], [address] Calcium [Mass/Vol] 7.5 mg/dL Low 7.6-11.0 [facility] Comment on above: Performed By: #### L 500.2500 ####[facility] [address] [place], [address] Chloride [Moles/Vol] 99 mmol/L Normal 98-108 [facility] Comment on above: Performed By: #### L 500.2500 ####[facility] [address] [place], [address] CO2 [Moles/Vol] 15.7 mmol/L Low 21.0-32.0 [facility] Comment on above: Performed By: #### L 500.2500 ####[facility] [address] [place], [address] Creatinine [Mass/Vol] 0.74 mg/dL Normal 0.70-1.20 [facility] Comment on above: Performed By: #### L 500.2500 ####[facility] [address] [place], [address] ECRCL 116.17 ml/min Normal 50-250 [facility] Comment on above: Performed By: #### L 500.2500 ####[facility] [address] [place], [address] GAP 18 High 5-15 [facility] Comment on above: Performed By: #### L 500.2500 ####[facility] [address] [place], [address] GFR/1.73 sq M.predicted among non-blacks MDRD (S/P/Bld) [Vol rate/Area] 111 mL/min/{1.73_m2} Normal >60 [facility] Comment on above: Result Comment: mL/m in/1.73m2 CKD-EPI Creatinine Equation (2020) Performed By: #### L 500.2500 ####[facility] [address] [place], [address] Glucose [Mass/Vol] 176 mg/dL High 70-99 [facility] Comment on above: Performed By: #### L 500.2500 ####[facility] [address] [place], [address] Potassium [Moles/Vol] 4.8 mmol/L Normal 3.3-5.1 [facility] Comment on above: Performed By: #### L 500.2500 ####[facility] [address] [place], [address] Sodium [Moles/Vol] 133 mmol/L Normal 133-145 [facility] Comment on above: Performed By: #### L 500.2500 ####[facility] [address] [place], [address] Urea nitrogen [Mass/Vol] 14 mg/dL Normal 4-19 [facility] Comment on above: Performed By: #### L 500.2500 ####[facility] [address] [place], [address] BUN Normal 4-19 [facility] Comment on above: Result Comment: DUPL ICATE Performed By: #### L 500.2500 ####[facility] [address] [place], [address] BUN/CRE Normal 10-20 [facility] Comment on above: Result Comment: DUPL ICATE Performed By: #### L 500.2500 ####[facility] [address] [place], [address] Calcium Normal 7.6-11.0 [facility] Comment on above: Result Comment: DUPL ICATE Performed By: #### L 500.2500 ####[facility] [address] [place], [address] CL Normal 98-108 [facility] Comment on above: Result Comment: DUPL ICATE Performed By: #### L 500.2500 ####[facility] [address] [place], [address] CO2 Normal 21.0-32.0 [facility] Comment on above: Result Comment: DUPL ICATE Performed By: #### L 500.2500 ####[facility] [address] [place], [address] CREAT,SERUM Normal 0.70-1.20 [facility] Comment on above: Result Comment: DUPL ICATE Performed By: #### L 500.2500 ####[facility] [address] [place], [address] eGFR Normal >60 [facility] Comment on above: Result Comment: DUPL ICATE Performed By: #### L 500.2500 ####[facility] [address] [place], [address] GAP Normal 5-15 [facility] Comment on above: Result Comment: DUPL ICATE Performed By: #### L 500.2500 ####[facility] [address] [place], [address] GLU Normal 70-99 [facility] Comment on above: Result Comment: DUPL ICATE Performed By: #### L 500.2500 ####[facility] [address] [place], [address] Potassium Normal 3.3-5.1 [facility] Comment on above: Result Comment: DUPL ICATE Performed By: #### L 500.2500 ####[facility] [address] [place], [address] Basic Metabolic Profile (BMP) Normal 133-145 [facility] Comment on above: Result Comment: DUPL ICATE Performed By: #### L 500.2500 ####[facility] [address] [place], [address] Bedside Glucoseon 11-05-2024 FINGERSTICK GLU 109 mg/dL High 74-106 [facility] Comment on above: Result Comment: EDGAR GEMENT OF PATIENT CARE PER NURSING PROTOCOL Performed By: #### L 501.080 ####[facility] [address] [place], [address] FINGERSTICK GLU 222 mg/dL High 74-106 [facility] Comment on above: Result Comment: EDGAR GEMENT OF PATIENT CARE PER NURSING PROTOCOL Performed By: #### L 501.080 ####[facility] [address] [place], [address] [facility] Positive Normal [facility] Comment on above: Performed By: #### L 9000.0800 ####[facility] [address] [place], [address] Base excess Calc (Bld) [Moles/Vol] -5 mmol/L Low -2 to +2 [facility] Comment on above: Performed By: #### L 9000.0800 ####[facility] [address] [place], [address] Blood Gas Type ART [facility] Comment on above: Performed By: #### L 9000.0800 ####[facility] [address] [place], [address] CO2 [Moles/Vol] 21 mmol/L [facility] Comment on above: Performed By: #### L 9000.0800 ####[facility] [address] [place], [address] HCO3 (Bld) [Moles/Vol] 19.9 mmol/L Low 22-26 [facility] Comment on above: Performed By: #### L 9000.0800 ####[facility] [address] [place], [address] Mode Not entered [facility] Comment on above: Performed By: #### L 9000.0800 ####[facility] [address] [place], [address] O2 Delivery Dev Room Air [facility] Comment on above: Performed By: #### L 9000.0800 ####[facility] [address] [place], [address] pCO2 31.1 mmHg Low 35-45 [facility] Comment on above: Performed By: #### L 0.0800 ####[facility] [address] [place], [address] pH (Bld) 7.42 [pH] Normal 7.35-7.45 [facility] Comment on above: Performed By: #### L 9000.0800 ####[facility] [address] [place], [address] PO2 89 mmHG Normal 75-100 [facility] Comment on above: Performed By: #### L 9000.0800 ####[facility] [address] [place], [address] SITE L Radial Normal [facility] Comment on above: Performed By: #### L 0.0800 ####[facility] [address] [place], [address] SO2 97 Normal 95-99 [facility] Comment on above: Performed By: #### L 9000.0800 ####[facility] [address] [place], [address] CBC W/Diff, Automatedon 10-26 Absolute Lymph 0.93 X10 3/uL Normal 0.83-4.51 [facility] Comment on above: Performed By: #### L 700.6800, L501.2450, L503.6005, L100.0100, L500.4050 ####[facility] [address] [place], [address] Absolute Neut 13.4 X10 3/uL High 2.0-7.7 [facility] Comment on above: Performed By: #### L 700.6800, L501.2450, L503.6005, L100.0100, L500.4050 ####[facility] [address] [place], [address] Basophils/100 WBC (Bld) 0.2 % Normal 0-1 [facility] Comment on above: Performed By: #### L 700.6800, L501.2450, L503.6005, L100.0100, L500.4050 ####[facility] [address] [place], [address] Eosinophils/100 WBC (Bld) 0.0 % Normal 0-5 [facility] Comment on above: Performed By: #### L 700.6800, L501.2450, L503.6005, L100.0100, L500.4050 ####[facility] [address] [place], [address] Erythrocyte distribution width (RBC) [Ratio] 13.6 % Normal 11.6-14.6 [facility] Comment on above: Performed By: #### L 700.6800, L501.2450, L503.6005, L100.0100, L500.4050 ####[facility] [address] [place], [address] Hematocrit (Bld) [Volume fraction] 38.0 % Normal 37-47 [facility] Comment on above: Performed By: #### L 700.6800, L501.2450, L503.6005, L100.0100, L500.4050 ####[facility] [address] [place], [address] Hemoglobin (Bld) [Mass/Vol] 12.7 g/dL Normal 12.0-15.0 [facility] Comment on above: Performed By: #### L 700.6800, L501.2450, L503.6005, L100.0100, L500.4050 ####[facility] [address] [place], [address] IG% 1.000 High 0.0-0.9 [facility] Comment on above: Result Comment: IG% - Immature Granulocytes (promyelocytes, myelocytes andmetamyelocytes) > 1% indicates that a LEFT SHIFT is Present. Performed By: #### L 700.6800, L501.2450, L503.6005, L100.0100, L500.4050 ####[facility] [address] [place], [address] Lymphocytes/100 WBC (Bld) 6.1 % Low 19-41 [facility] Comment on above: Performed By: #### L 700.6800, L501.2450, L503.6005, L100.0100, L500.4050 ####[facility] [address] [place], [address] MCH (RBC) [Entitic mass] 29.9 pg Normal 27.0-32.0 [facility] Comment on above: Performed By: #### L 700.6800, L501.2450, L503.6005, L100.0100, L500.4050 ####[facility] [address] [place], [address] MCHC (RBC) [Mass/Vol] 33.4 g/dL Normal 32-36 [facility] Comment on above: Performed By: #### L 700.6800, L501.2450, L503.6005, L100.0100, L500.4050 ####[facility] [address] [place], [address] MCV (RBC) [Entitic vol] 89.4 fL Normal 81-99 [facility] Comment on above: Performed By: #### L 700.6800, L501.2450, L503.6005, L100.0100, L500.4050 ####[facility] [address] [place], [address] Monocytes/100 WBC (Bld) 4.7 % Normal 0-10 [facility] Comment on above: Performed By: #### L 700.6800, L501.2450, L503.6005, L100.0100, L500.4050 ####[facility] [address] [place], [address] Neutrophils/100 WBC (Bld) 88.0 % High 47-70 [facility] Comment on above: Performed By: #### L 700.6800, L501.2450, L503.6005, L100.0100, L500.4050 ####[facility] [address] [place], [address] Nucleated RBC (Bld) [#/Vol] 0 10*3/uL Normal 0-5 [facility] Comment on above: Performed By: #### L 700.6800, L501.2450, L503.6005, L100.0100, L500.4050 ####[facility] [address] [place], [address] Platelet mean volume (Bld) [Entitic vol] 11.7 fL Normal 6.2-12.0 [facility] Comment on above: Performed By: #### L 700.6800, L501.2450, L503.6005, L100.0100, L500.4050 ####[facility] [address] [place], [address] Platelets (Bld) [#/Vol] 201 10*3/uL Normal 150-450 [facility] Comment on above: Performed By: #### L 700.6800, L501.2450, L503.6005, L100.0100, L500.4050 ####[facility] [address] [place], [address] RBC (Bld) [#/Vol] 4.25 10*6/uL Normal 4.2-5.4 [facility] Comment on above: Performed By: #### L 700.6800, L501.2450, L503.6005, L100.0100, L500.4050 ####[facility] [address] [place], [place], [address] RDW SD 44.6 fl High 35.1-43.9 [facility] Comment on above: Performed By: #### L 700.6800, L501.2450, L503.6005, L100.0100, L500.4050 ####[facility] [address] [place], [place], [address] WBC (Bld) [#/Vol] 15.2 10*3/uL High 4.4-11.0 [facility] Comment on above: Performed By: #### L 700.6800, L501.2450, L503.6005, L100.0100, L500.4050 ####[facility] [address] [place], [address] [facility] KATHLEEN VILLA ([id number]) [address] [facility] Date Time Provider Department 11/05/24 LETICIA HYLTON [facility] During your visit today, we [...] Units subcutaneously every 24 hours. 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 Normal [facility] Metabolic Prof ilon 11-05-2024 Albumin [Mass/Vol] 4.1 g/dL Normal 3.5-5.0 [facility] Comment on above: Performed By: #### L 700.6800, L501.2450, L503.6005, L100.0100, L500.4050 ####[facility] [address] [place], [address] Albumin/Globulin [Mass ratio] 1.5 {ratio} Normal 0.9-2.4 [facility] Comment on above: Performed By: #### L 700.6800, L501.2450, L503.6005, L100.0100, L500.4050 ####[facility] [address] [place], [address] ALK PHOS 89 U/L Normal 35-104 [facility] Comment on above: Performed By: #### L 700.6800, L501.2450, L503.6005, L100.0100, L500.4050 ####[facility] [address] [place], [address] ALT [Catalytic activity/Vol] 17 U/L Normal <=34 [facility] Comment on above: Performed By: #### L 700.6800, L501.2450, L503.6005, L100.0100, L500.4050 ####[facility] [address] [place], [address] AST [Catalytic activity/Vol] 21 U/L Normal <=31 [facility] Comment on above: Performed By: #### L 700.6800, L501.2450, L503.6005, L100.0100, L500.4050 ####[facility] [address] [place], [address] Bilirubin [Mass/Vol] 1.15 mg/dL Normal 0.00-1.30 [facility] Comment on above: Performed By: #### L 700.6800, L501.2450, L503.6005, L100.0100, L500.4050 ####[facility] [address] [place], [address] BUN/CRE 18.4 RATIO Normal 10-20 [facility] Comment on above: Performed By: #### L 700.6800, L501.2450, L503.6005, L100.0100, L500.4050 ####[facility] [address] [place], [address] Calcium [Mass/Vol] 8.2 mg/dL Normal 7.6-11.0 [facility] Comment on above: Performed By: #### L 700.6800, L501.2450, L503.6005, L100.0100, L500.4050 ####[facility] [address] [place], [address] Chloride [Moles/Vol] 94 mmol/L Low 98-108 [facility] Comment on above: Performed By: #### L 700.6800, L501.2450, L503.6005, L100.0100, L500.4050 ####[facility] [address] [place], [address] CO2 [Moles/Vol] 12.8 mmol/L Low 21.0-32.0 [facility] Comment on above: Performed By: #### L 700.6800, L501.2450, L503.6005, L100.0100, L500.4050 ####[facility] [address] [place], [address] Creatinine [Mass/Vol] 0.86 mg/dL Normal 0.70-1.20 [facility] Comment on above: Performed By: #### L 700.6800, L501.2450, L503.6005, L100.0100, L500.4050 ####[facility] [address] [place], [address] ECRCL 99.96 ml/min Normal 50-250 [facility] Comment on above: Performed By: #### L 700.6800, L501.2450, L503.6005, L100.0100, L500.4050 ####[facility] [address] [place], [address] GAP 27 High 5-15 [facility] Comment on above: Performed By: #### L 700.6800, L501.2450, L503.6005, L100.0100, L500.4050 ####[facility] [address] [place], [address] GFR/1.73 sq M.predicted among non-blacks MDRD (S/P/Bld) [Vol rate/Area] 93 mL/min/{1.73_m2} Normal >60 [facility] Comment on above: Result Comment: mL/m in/1.73m2 CKD-EPI Creatinine Equation (2020) Performed By: #### L 700.6800, L501.2450, L503.6005, L100.0100, L500.4050 ####[facility] [address] [place], [address] Globulin (S) [Mass/Vol] 2.8 g/dL Normal 2.2-4.2 [facility] Comment on above: Performed By: #### L 700.6800, L501.2450, L503.6005, L100.0100, L500.4050 ####[facility] [address] [place], [address] Glucose [Mass/Vol] 251 mg/dL High 70-99 [facility] Comment on above: Performed By: #### L 700.6800, L501.2450, L503.6005, L100.0100, L500.4050 ####[facility] [address] [place], [address] Potassium [Moles/Vol] 3.0 mmol/L Low 3.3-5.1 [facility] Comment on above: Performed By: #### L 700.6800, L501.2450, L503.6005, L100.0100, L500.4050 ####[facility] [address] [place], [address] Sodium [Moles/Vol] 134 mmol/L Normal 133-145 [facility] Comment on above: Performed By: #### L 700.6800, L501.2450, L503.6005, L100.0100, L500.4050 ####[facility] [address] [place], [address] T PROT 6.9 g/dL Normal 5.9-8.4 [facility] Comment on above: Performed By: #### L 700.6800, L501.2450, L503.6005, L100.0100, L500.4050 ####[facility] [address] [place], [address] Urea nitrogen [Mass/Vol] 16 mg/dL Normal 4-19 [facility] Comment on above: Performed By: #### L 700.6800, L501.2450, L503.6005, L100.0100, L500.4050 ####[facility] [address] [place], [address] Emergency Department Summary on 11-05-2024 Emergency Department Summary Normal [facility] Gallbladderon 11-05-2024 Gallbladder Normal [facility] H AND P Exam - Hospitaliston 11-05-2024 H&P Exam - Hospitalist Normal [facility] L501.6901on 11-05-2024 BETA-HYDROXYBUT 7.1 mmol/L Normal 0.0-0.3 [facility] Comment on above: Performed By: #### L 501.6901 ####[facility] [address] [place], [address] Lactic Acidon 11-05-2024 Lactate [Moles/Vol] mmol/L Normal 0.0-2.0 [facility] Comment on above: Order Comment: Y Performed By: #### L 700.6800, L501.2450, L503.6005, L100.0100, L500.4050 ####[facility] [address] [place], [address] Lipaseon 11-05-2024 Lipase [Catalytic activity/Vol] 13 U/L Normal 13-75 [facility] Comment on above: Result Comment: Sulma schmitz note:LIPASE revised reference range effective 22.New Lipase methodology. Expected to produce lower valuesthan the previous assay method.NEW Reference Range: 13 - 75 U/L Performed By: #### L 700.6800, L501.2450, L503.6005, L100.0100, L500.4050 ####[facility] [address] [place], [address] ,Serum,hCG Quali.on 11-05-2024 HCG, SERUM QUAL Negative Normal [facility] Comment on above: Performed By: #### L 700.6800, L501.2450, L503.6005, L100.0100, L500.4050 ####[facility] [address] [place], [address] Urinalysis, Completeon 11-05 BACTERIA 1+ /hpf Normal None Seen [facility] Comment on above: Order Comment: CLEAN CATCH Performed By: #### L 400.0001 ####[facility] [address] [place], [address] EPI,SQUAMOUS 0-5 SEEN Normal 5-10 [facility] Comment on above: Order Comment: CLEAN CATCH Performed By: #### L 400.0001 ####[facility] [address] [place], [address] WBC 0-5 SEEN Normal 0-5 [facility] Comment on above: Order Comment: CLEAN CATCH Performed By: #### L 400.0001 ####[facility] [address] [place], [address] RBC 0 SEEN Normal 0-5 [facility] Comment on above: Order Comment: CLEAN CATCH Performed By: #### L 400.0001 ####[facility] [address] [place], [address] Mucus Ql (Urine sed) 0 SEEN Normal [facility] Comment on above: Order Comment: CLEAN CATCH Performed By: #### L 400.0001 ####[facility] [address] [place], [address] Venous Blood Gason 5 Blood Gas Type ISABELLE Normal [facility] Comment on above: Performed By: #### L 9000.0810 ####[facility] [address] [place], [address] CO2 [Moles/Vol] 14 mmol/L Low 23-33 [facility] Comment on above: Performed By: #### L 9000.0810 ####[facility] [address] [place], [address] HCO3 (Bld) [Moles/Vol] 14 mmol/L Low 22-26 [facility] Comment on above: Performed By: #### L 9000.0810 ####[facility] [address] [place], [address] O2 Delivery Dev Not entered Normal [facility] Comment on above: Performed By: #### L 9000.0810 ####[facility] [address] [place], [address] SITE Not entered Normal [facility] Comment on above: Performed By: #### L 9000.0810 ####[facility] [address] [place], [address] VBG BE -11 mmol/L Low -1.0-3.5 [facility] Comment on above: Performed By: #### L 9000.0810 ####[facility] [address] [place], [address] VBG pCO2 20.7 mmHg Low 41-51 [facility] Comment on above: Performed By: #### L 9000.0810 ####[facility] [address] [place], [address] VBG pH 7.43 High 7.32-7.42 [facility] Comment on above: Performed By: #### L 9000.0810 ####[facility] [address] [place], [address] VBG PO2 68 mmHg High 25-40 [facility] Comment on above: Performed By: #### L 9000.0810 ####[facility] [address] [place], [address] VBG SO2 95 High 50-70 [facility] Comment on above: Performed By: #### L 9000.0810 ####[facility] [address] [place], [address] L501.6901on 03-10-2025 BETA-HYDROXYBUT 1.5 mmol/L Normal 0.0-0.3 [facility] Comment on above: Performed By: #### L 501.6901 ####[facility] [address] [place], [address] Venous Blood Gason 5 CO2 [Moles/Vol] 20 mmol/L Low 23-33 [facility] Comment on above: Performed By: #### L 9000.0810 ####[facility] [address] [place], [address] HCO3 (Bld) [Moles/Vol] 19 mmol/L Low 22-26 [facility] Comment on above: Performed By: #### L 9000.0810 ####[facility] [address] [place], [address] VBG SO2 94 High 50-70 [facility] Comment on above: Performed By: #### L 9000.0810 ####[facility] [address] [place], [address] Blood Gas Type ISABELLE Normal [facility] Comment on above: Performed By: #### L 9000.0810 ####[facility] [address] [place], [address] VBG pCO2 30.3 mmHg Low 41-51 [facility] Comment on above: Performed By: #### L 9000.0810 ####[facility] [address] [place], [address] VBG pH 7.40 Normal 7.32-7.42 [facility] Comment on above: Performed By: #### L 9000.0810 ####[facility] [address] [place], [address] VBG PO2 71 mmHg High 25-40 [facility] Comment on above: Performed By: #### L 9000.0810 ####[facility] [address] [place], [address] Abdomen/Pelvis W IV Cont ONL Yon 11-03-2024 Abdomen/Pelvis W IV Cont ONLY Normal [facility] CBC W/Diff, Automatedon 03-0 Absolute Lymph 1.92 X10 3/uL Normal 0.83-4.51 [facility] Comment on above: Performed By: #### L 500.4050, L100.0100, L501.2450 ####[facility] [address] [place], [address] Absolute Neut 8.4 X10 3/uL High 2.0-7.7 [facility] Comment on above: Performed By: #### L 500.4050, L100.0100, L501.2450 ####[facility] [address] [place], [address] Basophils/100 WBC (Bld) 0.5 % Normal 0-1 [facility] Comment on above: Performed By: #### L 500.4050, L100.0100, L501.2450 ####[facility] [address] [place], [address] Eosinophils/100 WBC (Bld) 0.3 % Normal 0-5 [facility] Comment on above: Performed By: #### L 500.4050, L100.0100, L501.2450 ####[facility] [address] [place], [address] Erythrocyte distribution width (RBC) [Ratio] 13.2 % Normal 11.6-14.6 [facility] Comment on above: Performed By: #### L 500.4050, L100.0100, L501.2450 ####[facility] [address] [place], [address] Hematocrit (Bld) [Volume fraction] 42.1 % Normal 37-47 [facility] Comment on above: Performed By: #### L 500.4050, L100.0100, L501.2450 ####[facility] [address] [place], [address] Hemoglobin (Bld) [Mass/Vol] 14.2 g/dL Normal 12.0-15.0 [facility] Comment on above: Performed By: #### L 500.4050, L100.0100, L501.2450 ####[facility] [address] [place], [address] IG% 0.800 Normal 0.0-0.9 [facility] Comment on above: Result Comment: IG% - Immature Granulocytes (promyelocytes, myelocytes andmetamyelocytes) > 1% indicates that a LEFT SHIFT is Present. Performed By: #### L 500.4050, L100.0100, L501.2450 ####[facility] [address] [place], [address] Lymphocytes/100 WBC (Bld) 17.5 % Low 19-41 [facility] Comment on above: Performed By: #### L 500.4050, L100.0100, L501.2450 ####[facility] [address] [place], [address] MCH (RBC) [Entitic mass] 29.3 pg Normal 27.0-32.0 [facility] Comment on above: Performed By: #### L 500.4050, L100.0100, L501.2450 ####[facility] [address] [place], [address] MCHC (RBC) [Mass/Vol] 33.7 g/dL Normal 32-36 [facility] Comment on above: Performed By: #### L 500.4050, L100.0100, L501.2450 ####[facility] [address] [place], [address] MCV (RBC) [Entitic vol] 87.0 fL Normal 81-99 [facility] Comment on above: Performed By: #### L 500.4050, L100.0100, L501.2450 ####[facility] [address] [place], [address] Monocytes/100 WBC (Bld) 4.6 % Normal 0-10 [facility] Comment on above: Performed By: #### L 500.4050, L100.0100, L501.2450 ####[facility] [address] [place], [address] Neutrophils/100 WBC (Bld) 76.3 % High 47-70 [facility] Comment on above: Performed By: #### L 500.4050, L100.0100, L501.2450 ####[facility] [address] [place], [address] Nucleated RBC (Bld) [#/Vol] 0 10*3/uL Normal 0-5 [facility] Comment on above: Performed By: #### L 500.4050, L100.0100, L501.2450 ####[facility] [address] [place], [address] Platelet mean volume (Bld) [Entitic vol] 12.4 fL High 6.2-12.0 [facility] Comment on above: Performed By: #### L 500.4050, L100.0100, L501.2450 ####[facility] [address] [place], [address] Platelets (Bld) [#/Vol] 263 10*3/uL Normal 150-450 [facility] Comment on above: Performed By: #### L 500.4050, L100.0100, L501.2450 ####[facility] [address] [place], [address] RBC (Bld) [#/Vol] 4.84 10*6/uL Normal 4.2-5.4 [facility] Comment on above: Performed By: #### L 500.4050, L100.0100, L501.2450 ####[facility] [address] [place], [address] RDW SD 41.6 fl Normal 35.1-43.9 [facility] Comment on above: Performed By: #### L 500.4050, L100.0100, L501.2450 ####[facility] [address] [place], [address] WBC (Bld) [#/Vol] 11.0 10*3/uL Normal 4.4-11.0 [facility] Comment on above: Performed By: #### L 500.4050, L100.0100, L501.2450 ####[facility] [address] [place], [address] Comprehensive Metabolic Prof ilon 11-03-2024 Albumin [Mass/Vol] 4.7 g/dL Normal 3.5-5.0 [facility] Comment on above: Performed By: #### L 500.4050, L100.0100, L501.2450 ####[facility] [address] [place], [address] Albumin/Globulin [Mass ratio] 1.4 {ratio} Normal 0.9-2.4 [facility] Comment on above: Performed By: #### L 500.4050, L100.0100, L501.2450 ####[facility] [address] [place], [address] ALK PHOS 101 U/L Normal 35-104 [facility] Comment on above: Performed By: #### L 500.4050, L100.0100, L501.2450 ####[facility] [address] [place], [address] ALT [Catalytic activity/Vol] 22 U/L Normal <=34 [facility] Comment on above: Performed By: #### L 500.4050, L100.0100, L501.2450 ####[facility] [address] [place], [address] AST [Catalytic activity/Vol] 20 U/L Normal <=31 [facility] Comment on above: Result Comment: Hemo lysis present, Results??could be affected.?? Performed By: #### L 500.4050, L100.0100, L501.2450 ####[facility] [address] [place], [address] Bilirubin [Mass/Vol] 0.98 mg/dL Normal 0.00-1.30 [facility] Comment on above: Performed By: #### L 500.4050, L100.0100, L501.2450 ####[facility] [address] [place], [address] BUN/CRE 17.6 RATIO Normal 10-20 [facility] Comment on above: Performed By: #### L 500.4050, L100.0100, L501.2450 ####[facility] [address] [place], [address] Calcium [Mass/Vol] 9.9 mg/dL Normal 7.6-11.0 [facility] Comment on above: Performed By: #### L 500.4050, L100.0100, L501.2450 ####[facility] [address] [place], [address] Chloride [Moles/Vol] 97 mmol/L Low 98-108 [facility] Comment on above: Performed By: #### L 500.4050, L100.0100, L501.2450 ####[facility] [address] [place], [address] CO2 [Moles/Vol] 18.2 mmol/L Low 21.0-32.0 [facility] Comment on above: Performed By: #### L 500.4050, L100.0100, L501.2450 ####[facility] [address] [place], [address] Creatinine [Mass/Vol] 0.84 mg/dL Normal 0.70-1.20 [facility] Comment on above: Performed By: #### L 500.4050, L100.0100, L501.2450 ####[facility] [address] [place], [address] ECRCL 102.34 ml/min Normal 50-250 [facility] Comment on above: Performed By: #### L 500.4050, L100.0100, L501.2450 ####[facility] [address] [place], [address] GAP 18 High 5-15 [facility] Comment on above: Performed By: #### L 500.4050, L100.0100, L501.2450 ####[facility] [address] [place], [address] GFR/1.73 sq M.predicted among non-blacks MDRD (S/P/Bld) [Vol rate/Area] 96 mL/min/{1.73_m2} Normal >60 [facility] Comment on above: Result Comment: mL/m in/1.73m2 CKD-EPI Creatinine Equation (2020) Performed By: #### L 500.4050, L100.0100, L501.2450 ####[facility] [address] [place], [address] Globulin (S) [Mass/Vol] 3.3 g/dL Normal 2.2-4.2 [facility] Comment on above: Performed By: #### L 500.4050, L100.0100, L501.2450 ####[facility] [address] [place], [address] Glucose [Mass/Vol] 375 mg/dL High 70-99 [facility] Comment on above: Performed By: #### L 500.4050, L100.0100, L501.2450 ####[facility] [address] [place], [address] Potassium [Moles/Vol] 4.4 mmol/L Normal 3.3-5.1 [facility] Comment on above: Result Comment: Hemo lysis present, Results??could be affected.?? Performed By: #### L 500.4050, L100.0100, L501.2450 ####[facility] [address] [place], [address] Sodium [Moles/Vol] 133 mmol/L Normal 133-145 [facility] Comment on above: Performed By: #### L 500.4050, L100.0100, L501.2450 ####[facility] [address] [place], [address] T PROT 7.9 g/dL Normal 5.9-8.4 [facility] Comment on above: Performed By: #### L 500.4050, L100.0100, L501.2450 ####[facility] [address] [place], [address] Urea nitrogen [Mass/Vol] 15 mg/dL Normal 4-19 [facility] Comment on above: Performed By: #### L 500.4050, L100.0100, L501.2450 ####[facility] [address] [place], [address] Emergency Department Summary on 11-03-2024 Emergency Department Summary Normal [facility] Lipaseon 11-03-2024 Lipase [Catalytic activity/Vol] 14 U/L Normal 13-75 [facility] Comment on above: Result Comment: Sulma schmitz note:LIPASE revised reference range effective 22.New Lipase methodology. Expected to produce lower valuesthan the previous assay method.NEW Reference Range: 13 - 75 U/L Performed By: #### L 500.4050, L100.0100, L501.2450 ####[facility] [address] [place], [address] Urinalysis, Completeon 11-03 BACTERIA RARE Normal None Seen [facility] Comment on above: Order Comment: CLEAN CATCH Performed By: #### L 400.0001 ####[facility] [address] [place], [address] EPI,SQUAMOUS 0-5 SEEN Normal 5-10 [facility] Comment on above: Order Comment: CLEAN CATCH Performed By: #### L 400.0001 ####[facility] [address] [place], [address] RBC 0 SEEN Normal 0-5 [facility] Comment on above: Order Comment: CLEAN CATCH Performed By: #### L 400.0001 ####[facility] [address] [place], [address] WBC 0-5 SEEN Normal 0-5 [facility] Comment on above: Order Comment: CLEAN CATCH Performed By: #### L 400.0001 ####[facility] [address] [place], [address] BILIRUBIN URINE Negative Normal Negative [facility] Comment on above: Order Comment: CLEAN CATCH Performed By: #### L 400.0001 ####[facility] [address] [place], [address] Clarity (U) Turbid Normal Clear [facility] Comment on above: Order Comment: CLEAN CATCH Performed By: #### L 400.0001 ####[facility] [address] [place], [address] Color (U) Straw Normal Yellow [facility] Comment on above: Order Comment: CLEAN CATCH Performed By: #### L 400.0001 ####[facility] [address] [place], [address] GLUCOSE, UR 1000 mg/dl Abnormal Normal [facility] Comment on above: Order Comment: CLEAN CATCH Performed By: #### L 400.0001 ####[facility] [address] [place], [address] KETONE UR 50 mg/dl Abnormal Negative [facility] Comment on above: Order Comment: CLEAN CATCH Performed By: #### L 400.0001 ####[facility] [address] [place], [address] LEUK ESTERASE Negative Normal Negative [facility] Comment on above: Order Comment: CLEAN CATCH Performed By: #### L 400.0001 ####[facility] [address] [place], [address] Nitrite Ql (U) Negative Normal Negative [facility] Comment on above: Order Comment: CLEAN CATCH Performed By: #### L 400.0001 ####[facility] [address] [place], [address] OCCULT BLOOD-UR Negative Normal Negative [facility] Comment on above: Order Comment: CLEAN CATCH Performed By: #### L 400.0001 ####[facility] [address] [place], [address] pH UR 6.0 Normal 5.0 - 8.0 [facility] Comment on above: Order Comment: CLEAN CATCH Performed By: #### L 400.0001 ####[facility] [address] [place], [address] PROT DIPSTX Negative Normal Negative [facility] Comment on above: Order Comment: CLEAN CATCH Performed By: #### L 400.0001 ####[facility] [address] [place], [address] SP.GR. DIPSTX 1.015 Normal 1.002-1.030 [facility] Comment on above: Order Comment: CLEAN CATCH Performed By: #### L 400.0001 ####[facility] [address] [place], [address] UROBILI Normal Normal Normal [facility] Comment on above: Order Comment: CLEAN CATCH Performed By: #### L 400.0001 ####[facility] [address] [place], [address] Mucus Ql (Urine sed) 0 SEEN Normal [facility] Comment on above: Order Comment: CLEAN CATCH Performed By: #### L 400.0001 ####[facility] [address] [place], [address] Basic Metabolic Profile (BMP )on 10-27-2024 BUN Normal 7-18 [facility] Comment on above: Result Comment: Canc elled via OM: Order cancelled - Patient discharged Performed By: #### L 100.0100, L500.2500 ####[facility] [address] [place], [address] BUN/CRE Normal 10-20 [facility] Comment on above: Result Comment: Canc elled via OM: Order cancelled - Patient discharged Performed By: #### L 100.0100, L500.2500 ####[facility] [address] [place], [address] CA,Total Normal 8.5-10.1 [facility] Comment on above: Result Comment: Canc elled via OM: Order cancelled - Patient discharged Performed By: #### L 100.0100, L500.2500 ####[facility] [address] [place], [address] CL Normal 98-107 [facility] Comment on above: Result Comment: Canc elled via OM: Order cancelled - Patient discharged Performed By: #### L 100.0100, L500.2500 ####[facility] [address] [place], [address] CO2 Normal 21.0-32.0 [facility] Comment on above: Result Comment: Canc elled via OM: Order cancelled - Patient discharged Performed By: #### L 100.0100, L500.2500 ####[facility] [address] [place], [address] CREAT,SERUM Normal 0.55-1.02 [facility] Comment on above: Result Comment: Canc elled via OM: Order cancelled - Patient discharged Performed By: #### L 100.0100, L500.2500 ####[facility] [address] [place], [address] EST GFR Normal >60 [facility] Comment on above: Result Comment: Canc elled via OM: Order cancelled - Patient discharged Performed By: #### L 100.0100, L500.2500 ####[facility] [address] [place], [address] EST GFR - AA Normal >60 [facility] Comment on above: Result Comment: Canc elled via OM: Order cancelled - Patient discharged Performed By: #### L 100.0100, L500.2500 ####[facility] [address] [place], [address] GAP Normal 5-15 [facility] Comment on above: Result Comment: Canc elled via OM: Order cancelled - Patient discharged Performed By: #### L 100.0100, L500.2500 ####[facility] [address] [place], [address] GLU Normal 74-106 [facility] Comment on above: Result Comment: Canc elled via OM: Order cancelled - Patient discharged Performed By: #### L 100.0100, L500.2500 ####[facility] [address] [place], [address] Potassium Normal 3.5-5.1 [facility] Comment on above: Result Comment: Canc elled via OM: Order cancelled - Patient discharged Performed By: #### L 100.0100, L500.2500 ####[facility] [address] [place], [address] Basic Metabolic Profile (BMP) Normal 136-145 [facility] Comment on above: Result Comment: Canc elled via OM: Order cancelled - Patient discharged Performed By: #### L 100.0100, L500.2500 ####[facility] [address] [place], [address] CBC W/Diff, Automatedon 03-0 Absolute Neut Normal 2.0-7.7 [facility] Comment on above: Result Comment: Canc elled via OM: Order cancelled - Patient discharged Performed By: #### L 100.0100, L500.2500 ####[facility] [address] [place], [address] HCT Normal 37-47 [facility] Comment on above: Result Comment: Canc elled via OM: Order cancelled - Patient discharged Performed By: #### L 100.0100, L500.2500 ####[facility] [address] [place], [address] HGB Normal 12.0-15.0 [facility] Comment on above: Result Comment: Canc elled via OM: Order cancelled - Patient discharged Performed By: #### L 100.0100, L500.2500 ####[facility] [address] [place], [address] MCH Normal 27.0-32.0 [facility] Comment on above: Result Comment: Canc elled via OM: Order cancelled - Patient discharged Performed By: #### L 100.0100, L500.2500 ####[facility] [address] [place], [address] MCHC Normal 32-36 [facility] Comment on above: Result Comment: Canc elled via OM: Order cancelled - Patient discharged Performed By: #### L 100.0100, L500.2500 ####[facility] [address] [place], [address] MCV Normal 81-99 [facility] Comment on above: Result Comment: Canc elled via OM: Order cancelled - Patient discharged Performed By: #### L 100.0100, L500.2500 ####[facility] [address] [place], [address] NEUT% Normal 47-70 [facility] Comment on above: Result Comment: Canc elled via OM: Order cancelled - Patient discharged Performed By: #### L 100.0100, L500.2500 ####[facility] [address] [place], [address] PLT Normal 150-450 [facility] Comment on above: Result Comment: Canc elled via OM: Order cancelled - Patient discharged Performed By: #### L 100.0100, L500.2500 ####[facility] [address] [place], [address] RBC Normal 4.2-5.4 [facility] Comment on above: Result Comment: Canc elled via OM: Order cancelled - Patient discharged Performed By: #### L 100.0100, L500.2500 ####[facility] [address] [place], [address] RDW CV Normal 11.6-14.6 [facility] Comment on above: Result Comment: Canc elled via OM: Order cancelled - Patient discharged Performed By: #### L 100.0100, L500.2500 ####[facility] [address] [place], [address] RDW SD Normal 35.1-43.9 [facility] Comment on above: Result Comment: Canc elled via OM: Order cancelled - Patient discharged Performed By: #### L 100.0100, L500.2500 ####[facility] [address] [place], [address] WBC Normal 4.4-11.0 [facility] Comment on above: Result Comment: Canc elled via OM: Order cancelled - Patient discharged Performed By: #### L 100.0100, L500.2500 ####[facility] [address] [place], [address] Basic Metabolic Profile (BMP )on 10-26-2024 BUN Normal 7-18 [facility] Comment on above: Result Comment: Canc elled via OM: Order cancelled - Patient discharged Performed By: #### L 500.2500, L100.0100 ####[facility] [address] [place], [address] BUN/CRE Normal 10-20 [facility] Comment on above: Result Comment: Canc elled via OM: Order cancelled - Patient discharged Performed By: #### L 500.2500, L100.0100 ####[facility] [address] [place], [address] CA,Total Normal 8.5-10.1 [facility] Comment on above: Result Comment: Canc elled via OM: Order cancelled - Patient discharged Performed By: #### L 500.2500, L100.0100 ####[facility] [address] [place], [address] CL Normal 98-107 [facility] Comment on above: Result Comment: Canc elled via OM: Order cancelled - Patient discharged Performed By: #### L 500.2500, L100.0100 ####[facility] [address] [place], [address] CO2 Normal 21.0-32.0 [facility] Comment on above: Result Comment: Canc elled via OM: Order cancelled - Patient discharged Performed By: #### L 500.2500, L100.0100 ####[facility] [address] [place], [address] CREAT,SERUM Normal 0.55-1.02 [facility] Comment on above: Result Comment: Canc elled via OM: Order cancelled - Patient discharged Performed By: #### L 500.2500, L100.0100 ####[facility] [address] [place], [address] EST GFR Normal >60 [facility] Comment on above: Result Comment: Canc elled via OM: Order cancelled - Patient discharged Performed By: #### L 500.2500, L100.0100 ####[facility] [address] [place], [address] EST GFR - AA Normal >60 [facility] Comment on above: Result Comment: Canc elled via OM: Order cancelled - Patient discharged Performed By: #### L 500.2500, L100.0100 ####[facility] [address] [place], [address] GAP Normal 5-15 [facility] Comment on above: Result Comment: Canc elled via OM: Order cancelled - Patient discharged Performed By: #### L 500.2500, L100.0100 ####[facility] [address] [place], [address] GLU Normal 74-106 [facility] Comment on above: Result Comment: Canc elled via OM: Order cancelled - Patient discharged Performed By: #### L 500.2500, L100.0100 ####[facility] [address] [place], [address] Potassium Normal 3.5-5.1 [facility] Comment on above: Result Comment: Canc elled via OM: Order cancelled - Patient discharged Performed By: #### L 500.2500, L100.0100 ####[facility] [address] [place], [address] Basic Metabolic Profile (BMP) Normal 136-145 [facility] Comment on above: Result Comment: Canc elled via OM: Order cancelled - Patient discharged Performed By: #### L 500.2500, L100.0100 ####[facility] [address] [place], [address] CBC W/Diff, Automatedon 03-0 Absolute Neut Normal 2.0-7.7 [facility] Comment on above: Result Comment: Canc elled via OM: Order cancelled - Patient discharged Performed By: #### L 500.2500, L100.0100 ####[facility] [address] [place], [address] HCT Normal 37-47 [facility] Comment on above: Result Comment: Canc elled via OM: Order cancelled - Patient discharged Performed By: #### L 500.2500, L100.0100 ####[facility] [address] [place], [address] HGB Normal 12.0-15.0 [facility] Comment on above: Result Comment: Canc elled via OM: Order cancelled - Patient discharged Performed By: #### L 500.2500, L100.0100 ####[facility] [address] [place], [address] MCH Normal 27.0-32.0 [facility] Comment on above: Result Comment: Canc elled via OM: Order cancelled - Patient discharged Performed By: #### L 500.2500, L100.0100 ####[facility] [address] [place], [address] MCHC Normal 32-36 [facility] Comment on above: Result Comment: Canc elled via OM: Order cancelled - Patient discharged Performed By: #### L 500.2500, L100.0100 ####[facility] [address] [place], [address] MCV Normal 81-99 [facility] Comment on above: Result Comment: Canc elled via OM: Order cancelled - Patient discharged Performed By: #### L 500.2500, L100.0100 ####[facility] [address] [place], [address] NEUT% Normal 47-70 [facility] Comment on above: Result Comment: Canc elled via OM: Order cancelled - Patient discharged Performed By: #### L 500.2500, L100.0100 ####[facility] [address] [place], [address] PLT Normal 150-450 [facility] Comment on above: Result Comment: Canc elled via OM: Order cancelled - Patient discharged Performed By: #### L 500.2500, L100.0100 ####[facility] [address] [place], [address] RBC Normal 4.2-5.4 [facility] Comment on above: Result Comment: Canc elled via OM: Order cancelled - Patient discharged Performed By: #### L 500.2500, L100.0100 ####[facility] [address] [place], [address] RDW CV Normal 11.6-14.6 [facility] Comment on above: Result Comment: Canc elled via OM: Order cancelled - Patient discharged Performed By: #### L 500.2500, L100.0100 ####[facility] [address] [place], [address] RDW SD Normal 35.1-43.9 [facility] Comment on above: Result Comment: Canc elled via OM: Order cancelled - Patient discharged Performed By: #### L 500.2500, L100.0100 ####[facility] [address] [place], [address] WBC Normal 4.4-11.0 [facility] Comment on above: Result Comment: Canc elled via OM: Order cancelled - Patient discharged Performed By: #### L 500.2500, L100.0100 ####[facility] [address] [place], [address] Basic Metabolic Profile (BMP )on 10-25-2024 BUN Normal 7-18 [facility] Comment on above: Result Comment: Canc elled via OM: Order cancelled - Patient discharged Performed By: #### L 500.2500, L100.0100 ####[facility] [address] [place], [address] BUN/CRE Normal 10-20 [facility] Comment on above: Result Comment: Canc elled via OM: Order cancelled - Patient discharged Performed By: #### L 500.2500, L100.0100 ####[facility] [address] [place], [address] CA,Total Normal 8.5-10.1 [facility] Comment on above: Result Comment: Canc elled via OM: Order cancelled - Patient discharged Performed By: #### L 500.2500, L100.0100 ####[facility] [address] [place], [address] CL Normal 98-107 [facility] Comment on above: Result Comment: Canc elled via OM: Order cancelled - Patient discharged Performed By: #### L 500.2500, L100.0100 ####[facility] [address] [place], [address] CO2 Normal 21.0-32.0 [facility] Comment on above: Result Comment: Canc elled via OM: Order cancelled - Patient discharged Performed By: #### L 500.2500, L100.0100 ####[facility] [address] [place], [address] CREAT,SERUM Normal 0.55-1.02 [facility] Comment on above: Result Comment: Canc elled via OM: Order cancelled - Patient discharged Performed By: #### L 500.2500, L100.0100 ####[facility] [address] [place], [address] EST GFR Normal >60 [facility] Comment on above: Result Comment: Canc elled via OM: Order cancelled - Patient discharged Performed By: #### L 500.2500, L100.0100 ####[facility] [address] [place], [address] EST GFR - AA Normal >60 [facility] Comment on above: Result Comment: Canc elled via OM: Order cancelled - Patient discharged Performed By: #### L 500.2500, L100.0100 ####[facility] [address] [place], [address] GAP Normal 5-15 [facility] Comment on above: Result Comment: Canc elled via OM: Order cancelled - Patient discharged Performed By: #### L 500.2500, L100.0100 ####[facility] [address] [place], [address] GLU Normal 74-106 [facility] Comment on above: Result Comment: Canc elled via OM: Order cancelled - Patient discharged Performed By: #### L 500.2500, L100.0100 ####[facility] [address] [place], [address] Potassium Normal 3.5-5.1 [facility] Comment on above: Result Comment: Canc elled via OM: Order cancelled - Patient discharged Performed By: #### L 500.2500, L100.0100 ####[facility] [address] [place], [address] Basic Metabolic Profile (BMP) Normal 136-145 [facility] [facility] Comment on above: Result Comment: Canc elled via OM: Order cancelled - Patient discharged Performed By: #### L 500.2500, L100.0100 ####[facility] [address] [place], [address] CBC W/Diff, Automatedon 02- Absolute Neut Normal 2.0-7.7 [facility] Comment on above: Result Comment: Canc elled via OM: Order cancelled - Patient discharged Performed By: #### L 500.2500, L100.0100 ####[facility] [address] [place], [address] HCT Normal 37-47 [facility] Comment on above: Result Comment: Canc elled via OM: Order cancelled - Patient discharged Performed By: #### L 500.2500, L100.0100 ####[facility] [address] [place], [address] HGB Normal 12.0-15.0 [facility] Comment on above: Result Comment: Canc elled via OM: Order cancelled - Patient discharged Performed By: #### L 500.2500, L100.0100 ####[facility] [address] [place], [address] MCH Normal 27.0-32.0 [facility] Comment on above: Result Comment: Canc elled via OM: Order cancelled - Patient discharged Performed By: #### L 500.2500, L100.0100 ####[facility] [address] [place], [address] MCHC Normal 32-36 [facility] Comment on above: Result Comment: Canc elled via OM: Order cancelled - Patient discharged Performed By: #### L 500.2500, L100.0100 ####[facility] [address] [place], [address] MCV Normal 81-99 [facility] Comment on above: Result Comment: Canc elled via OM: Order cancelled - Patient discharged Performed By: #### L 500.2500, L100.0100 ####[facility] [address] [place], [address] NEUT% Normal 47-70 [facility] Comment on above: Result Comment: Canc elled via OM: Order cancelled - Patient discharged Performed By: #### L 500.2500, L100.0100 ####[facility] [address] [place], [address] PLT Normal 150-450 [facility] Comment on above: Result Comment: Canc elled via OM: Order cancelled - Patient discharged Performed By: #### L 500.2500, L100.0100 ####[facility] [address] [place], [address] RBC Normal 4.2-5.4 [facility] Comment on above: Result Comment: Canc elled via OM: Order cancelled - Patient discharged Performed By: #### L 500.2500, L100.0100 ####[facility] [address] [place], [address] RDW CV Normal 11.6-14.6 [facility] Comment on above: Result Comment: Canc elled via OM: Order cancelled - Patient discharged Performed By: #### L 500.2500, L100.0100 ####[facility] [address] [place], [address] RDW SD Normal 35.1-43.9 [facility] Comment on above: Result Comment: Canc elled via OM: Order cancelled - Patient discharged Performed By: #### L 500.2500, L100.0100 ####[facility] [address] [place], [address] WBC Normal 4.4-11.0 [facility] Comment on above: Result Comment: Canc elled via OM: Order cancelled - Patient discharged Performed By: #### L 500.2500, L100.0100 ####[facility] [address] [place], [address] Basic Metabolic Profile (BMP )on 10-24-2024 BUN Normal 7-18 [facility] Comment on above: Result Comment: Canc elled via OM: Order cancelled - Patient discharged Performed By: #### L 100.0100, L500.2500 ####[facility] [address] [place], [address] BUN/CRE Normal 10-20 [facility] Comment on above: Result Comment: Canc elled via OM: Order cancelled - Patient discharged Performed By: #### L 100.0100, L500.2500 ####[facility] [address] [place], [address] CA,Total Normal 8.5-10.1 [facility] Comment on above: Result Comment: Canc elled via OM: Order cancelled - Patient discharged Performed By: #### L 100.0100, L500.2500 ####[facility] [address] [place], [address] CL Normal 98-107 [facility] Comment on above: Result Comment: Canc elled via OM: Order cancelled - Patient discharged Performed By: #### L 100.0100, L500.2500 ####[facility] [address] [place], [address] CO2 Normal 21.0-32.0 [facility] Comment on above: Result Comment: Canc elled via OM: Order cancelled - Patient discharged Performed By: #### L 100.0100, L500.2500 ####[facility] [address] [place], [address] CREAT,SERUM Normal 0.55-1.02 [facility] Comment on above: Result Comment: Canc elled via OM: Order cancelled - Patient discharged Performed By: #### L 100.0100, L500.2500 ####[facility] [address] [place], [address] EST GFR Normal >60 [facility] Comment on above: Result Comment: Canc elled via OM: Order cancelled - Patient discharged Performed By: #### L 100.0100, L500.2500 ####[facility] [address] [place], [address] EST GFR - AA Normal >60 [facility] Comment on above: Result Comment: Canc elled via OM: Order cancelled - Patient discharged Performed By: #### L 100.0100, L500.2500 ####[facility] [address] [place], [address] GAP Normal 5-15 [facility] Comment on above: Result Comment: Canc elled via OM: Order cancelled - Patient discharged Performed By: #### L 100.0100, L500.2500 ####[facility] [address] [place], [address] GLU Normal 74-106 [facility] Comment on above: Result Comment: Canc elled via OM: Order cancelled - Patient discharged Performed By: #### L 100.0100, L500.2500 ####[facility] [address] [place], [address] Potassium Normal 3.5-5.1 [facility] Comment on above: Result Comment: Canc elled via OM: Order cancelled - Patient discharged Performed By: #### L 100.0100, L500.2500 ####[facility] [address] [place], [address] Basic Metabolic Profile (BMP) Normal 136-145 [facility] Comment on above: Result Comment: Canc elled via OM: Order cancelled - Patient discharged Performed By: #### L 100.0100, L500.2500 ####[facility] [address] [place], [address] CBC W/Diff, Automatedon 02-2 Absolute Neut Normal 2.0-7.7 [facility] Comment on above: Result Comment: Canc elled via OM: Order cancelled - Patient discharged Performed By: #### L 100.0100, L500.2500 ####[facility] [address] [place], [address] HCT Normal 37-47 [facility] Comment on above: Result Comment: Canc elled via OM: Order cancelled - Patient discharged Performed By: #### L 100.0100, L500.2500 ####[facility] [address] [place], [address] HGB Normal 12.0-15.0 [facility] Comment on above: Result Comment: Canc elled via OM: Order cancelled - Patient discharged Performed By: #### L 100.0100, L500.2500 ####[facility] [address] [place], [address] MCH Normal 27.0-32.0 [facility] Comment on above: Result Comment: Canc elled via OM: Order cancelled - Patient discharged Performed By: #### L 100.0100, L500.2500 ####[facility] [address] [place], [address] MCHC Normal 32-36 [facility] Comment on above: Result Comment: Canc elled via OM: Order cancelled - Patient discharged Performed By: #### L 100.0100, L500.2500 ####[facility] [address] [place], [address] MCV Normal 81-99 [facility] Comment on above: Result Comment: Canc elled via OM: Order cancelled - Patient discharged Performed By: #### L 100.0100, L500.2500 ####[facility] [address] [place], [address] NEUT% Normal 47-70 [facility] Comment on above: Result Comment: Canc elled via OM: Order cancelled - Patient discharged Performed By: #### L 100.0100, L500.2500 ####[facility] [address] [place], [address] PLT Normal 150-450 [facility] Comment on above: Result Comment: Canc elled via OM: Order cancelled - Patient discharged Performed By: #### L 100.0100, L500.2500 ####[facility] [address] [place], [address] RBC Normal 4.2-5.4 [facility] Comment on above: Result Comment: Canc elled via OM: Order cancelled - Patient discharged Performed By: #### L 100.0100, L500.2500 ####[facility] [address] [place], [address] RDW CV Normal 11.6-14.6 [facility] Comment on above: Result Comment: Canc elled via OM: Order cancelled - Patient discharged Performed By: #### L 100.0100, L500.2500 ####[facility] [address] [place], [address] RDW SD Normal 35.1-43.9 [facility] Comment on above: Result Comment: Canc elled via OM: Order cancelled - Patient discharged Performed By: #### L 100.0100, L500.2500 ####[facility] [address] [place], [address] WBC Normal 4.4-11.0 [facility] Comment on above: Result Comment: Canc elled via OM: Order cancelled - Patient discharged Performed By: #### L 100.0100, L500.2500 ####[facility] [address] [place], [address] Basic Metabolic Profile (BMP )on 10-23-2024 BUN Normal 7-18 [facility] Comment on above: Result Comment: Canc elled via OM: Order cancelled - Patient discharged Performed By: #### L 100.0100, L500.2500 ####[facility] [address] [place], [address] BUN/CRE Normal 10-20 [facility] Comment on above: Result Comment: Canc elled via OM: Order cancelled - Patient discharged Performed By: #### L 100.0100, L500.2500 ####[facility] [address] [place], [address] CA,Total Normal 8.5-10.1 [facility] Comment on above: Result Comment: Canc elled via OM: Order cancelled - Patient discharged Performed By: #### L 100.0100, L500.2500 ####[facility] [address] [place], [address] CL Normal 98-107 [facility] Comment on above: Result Comment: Canc elled via OM: Order cancelled - Patient discharged Performed By: #### L 100.0100, L500.2500 ####[facility] [address] [place], [address] CO2 Normal 21.0-32.0 [facility] Comment on above: Result Comment: Canc elled via OM: Order cancelled - Patient discharged Performed By: #### L 100.0100, L500.2500 ####[facility] [address] [place], [address] CREAT,SERUM Normal 0.55-1.02 [facility] Comment on above: Result Comment: Canc elled via OM: Order cancelled - Patient discharged Performed By: #### L 100.0100, L500.2500 ####[facility] [address] [place], [address] EST GFR Normal >60 [facility] Comment on above: Result Comment: Canc elled via OM: Order cancelled - Patient discharged Performed By: #### L 100.0100, L500.2500 ####[facility] [address] [place], [address] EST GFR - AA Normal >60 [facility] Comment on above: Result Comment: Canc elled via OM: Order cancelled - Patient discharged Performed By: #### L 100.0100, L500.2500 ####[facility] [address] [place], [address] GAP Normal 5-15 [facility] Comment on above: Result Comment: Canc elled via OM: Order cancelled - Patient discharged Performed By: #### L 100.0100, L500.2500 ####[facility] [address] [place], [address] GLU Normal 74-106 [facility] Comment on above: Result Comment: Canc elled via OM: Order cancelled - Patient discharged Performed By: #### L 100.0100, L500.2500 ####[facility] [address] [place], [address] Potassium Normal 3.5-5.1 [facility] Comment on above: Result Comment: Canc elled via OM: Order cancelled - Patient discharged Performed By: #### L 100.0100, L500.2500 ####[facility] [address] [place], [address] Basic Metabolic Profile (BMP) Normal 136-145 [facility] Comment on above: Result Comment: Canc elled via OM: Order cancelled - Patient discharged Performed By: #### L 100.0100, L500.2500 ####[facility] [address] [place], [address] CBC W/Diff, Automatedon 02-2 Absolute Neut Normal 2.0-7.7 [facility] Comment on above: Result Comment: Canc elled via OM: Order cancelled - Patient discharged Performed By: #### L 100.0100, L500.2500 ####[facility] [address] [place], [address] HCT Normal 37-47 [facility] Comment on above: Result Comment: Canc elled via OM: Order cancelled - Patient discharged Performed By: #### L 100.0100, L500.2500 ####[facility] [address] [place], [address] HGB Normal 12.0-15.0 [facility] Comment on above: Result Comment: Canc elled via OM: Order cancelled - Patient discharged Performed By: #### L 100.0100, L500.2500 ####[facility] [address] [place], [address] MCH Normal 27.0-32.0 [facility] Comment on above: Result Comment: Canc elled via OM: Order cancelled - Patient discharged Performed By: #### L 100.0100, L500.2500 ####[facility] [address] [place], [address] MCHC Normal 32-36 [facility] Comment on above: Result Comment: Canc elled via OM: Order cancelled - Patient discharged Performed By: #### L 100.0100, L500.2500 ####[facility] [address] [place], [address] MCV Normal 81-99 [facility] Comment on above: Result Comment: Canc elled via OM: Order cancelled - Patient discharged Performed By: #### L 100.0100, L500.2500 ####[facility] [address] [place], [address] NEUT% Normal 47-70 [facility] Comment on above: Result Comment: Canc elled via OM: Order cancelled - Patient discharged Performed By: #### L 100.0100, L500.2500 ####[facility] [address] [place], [address] PLT Normal 150-450 [facility] Comment on above: Result Comment: Canc elled via OM: Order cancelled - Patient discharged Performed By: #### L 100.0100, L500.2500 ####[facility] [address] [place], [address] RBC Normal 4.2-5.4 [facility] Comment on above: Result Comment: Canc elled via OM: Order cancelled - Patient discharged Performed By: #### L 100.0100, L500.2500 ####[facility] [address] [place], [address] RDW CV Normal 11.6-14.6 [facility] Comment on above: Result Comment: Canc elled via OM: Order cancelled - Patient discharged Performed By: #### L 100.0100, L500.2500 ####[facility] [address] [place], [address] RDW SD Normal 35.1-43.9 [facility] Comment on above: Result Comment: Canc elled via OM: Order cancelled - Patient discharged Performed By: #### L 100.0100, L500.2500 ####[facility] [address] [place], [address] WBC Normal 4.4-11.0 [facility] Comment on above: Result Comment: Canc elled via OM: Order cancelled - Patient discharged Performed By: #### L 100.0100, L500.2500 ####[facility] [address] [place], [address] Basic Metabolic Profile (BMP )on 10-22-2024 BUN Normal 7-18 [facility] Comment on above: Result Comment: Canc elled via OM: Order cancelled - Patient discharged Performed By: #### L 100.0100, L500.2500 ####[facility] [address] [place], [address] BUN/CRE Normal 10-20 [facility] Comment on above: Result Comment: Canc elled via OM: Order cancelled - Patient discharged Performed By: #### L 100.0100, L500.2500 ####[facility] [address] [place], [address] CA,Total Normal 8.5-10.1 [facility] Comment on above: Result Comment: Canc elled via OM: Order cancelled - Patient discharged Performed By: #### L 100.0100, L500.2500 ####[facility] [address] [facility] [address] CL Normal 98-107 [facility] Comment on above: Result Comment: Canc elled via OM: Order cancelled - Patient discharged Performed By: #### L 100.0100, L500.2500 ####[facility] [address] [facility] [address] CO2 Normal 21.0-32.0 [facility] Comment on above: Result Comment: Canc elled via OM: Order cancelled - Patient discharged Performed By: #### L 100.0100, L500.2500 ####[facility] [address] [place], [address] CREAT,SERUM Normal 0.55-1.02 [facility] Comment on above: Result Comment: Canc elled via OM: Order cancelled - Patient discharged Performed By: #### L 100.0100, L500.2500 ####[facility] [address] [facility] [address] EST GFR Normal >60 [facility] Comment on above: Result Comment: Canc elled via OM: Order cancelled - Patient discharged Performed By: #### L 100.0100, L500.2500 ####[facility] [address] [place], [address] EST GFR - AA Normal >60 [facility] Comment on above: Result Comment: Canc elled via OM: Order cancelled - Patient discharged Performed By: #### L 100.0100, L500.2500 ####[facility] [address] [place], [address] GAP Normal 5-15 [facility] Comment on above: Result Comment: Canc elled via OM: Order cancelled - Patient discharged Performed By: #### L 100.0100, L500.2500 ####[facility] [address] [place], [address] GLU Normal 74-106 [facility] Comment on above: Result Comment: Canc elled via OM: Order cancelled - Patient discharged Performed By: #### L 100.0100, L500.2500 ####[facility] [address] [place], [address] Potassium Normal 3.5-5.1 [facility] Comment on above: Result Comment: Canc elled via OM: Order cancelled - Patient discharged Performed By: #### L 100.0100, L500.2500 ####[facility] [address] [place], [address] Basic Metabolic Profile (BMP) Normal 136-145 [facility] Comment on above: Result Comment: Canc elled via OM: Order cancelled - Patient discharged Performed By: #### L 100.0100, L500.2500 ####[facility] [address] [place], [address] CBC W/Diff, Automatedon 02-2 Absolute Neut Normal 2.0-7.7 [facility] Comment on above: Result Comment: Canc elled via OM: Order cancelled - Patient discharged Performed By: #### L 100.0100, L500.2500 ####[facility] [address] [place], [address] HCT Normal 37-47 [facility] Comment on above: Result Comment: Canc elled via OM: Order cancelled - Patient discharged Performed By: #### L 100.0100, L500.2500 ####[facility] [address] [place], [address] HGB Normal 12.0-15.0 [facility] Comment on above: Result Comment: Canc elled via OM: Order cancelled - Patient discharged Performed By: #### L 100.0100, L500.2500 ####[facility] [address] [place], [address] MCH Normal 27.0-32.0 [facility] Comment on above: Result Comment: Canc elled via OM: Order cancelled - Patient discharged Performed By: #### L 100.0100, L500.2500 ####[facility] [address] [place], [address] MCHC Normal 32-36 [facility] Comment on above: Result Comment: Canc elled via OM: Order cancelled - Patient discharged Performed By: #### L 100.0100, L500.2500 ####[facility] [address] [place], [address] MCV Normal 81-99 [facility] Comment on above: Result Comment: Canc elled via OM: Order cancelled - Patient discharged Performed By: #### L 100.0100, L500.2500 ####[facility] [address] [place], [address] NEUT% Normal 47-70 [facility] Comment on above: Result Comment: Canc elled via OM: Order cancelled - Patient discharged Performed By: #### L 100.0100, L500.2500 ####[facility] [address] [place], [address] PLT Normal 150-450 [facility] Comment on above: Result Comment: Canc elled via OM: Order cancelled - Patient discharged Performed By: #### L 100.0100, L500.2500 ####[facility] [address] [place], [address] RBC Normal 4.2-5.4 [facility] Comment on above: Result Comment: Canc elled via OM: Order cancelled - Patient discharged Performed By: #### L 100.0100, L500.2500 ####[facility] [address] [place], [address] RDW CV Normal 11.6-14.6 [facility] Comment on above: Result Comment: Canc elled via OM: Order cancelled - Patient discharged Performed By: #### L 100.0100, L500.2500 ####[facility] [address] [place], [address] RDW SD Normal 35.1-43.9 [facility] Comment on above: Result Comment: Canc elled via OM: Order cancelled - Patient discharged Performed By: #### L 100.0100, L500.2500 ####[facility] [address] [place], [address] WBC Normal 4.4-11.0 [facility] Comment on above: Result Comment: Canc elled via OM: Order cancelled - Patient discharged Performed By: #### L 100.0100, L500.2500 ####[facility] [address] [place], [address] Basic Metabolic Profile (BMP )on 10-21-2024 BUN/CRE 17.1 RATIO Normal 10-20 [facility] Comment on above: Performed By: #### L 100.0100, L500.2500 ####[facility] [address] [place], [address] CA,Total 9.4 mg/dL Normal 8.5-10.1 [facility] Comment on above: Performed By: #### L 100.0100, L500.2500 ####[facility] [address] [place], [address] Chloride [Moles/Vol] 97 mmol/L Low 98-107 [facility] Comment on above: Performed By: #### L 100.0100, L500.2500 ####[facility] [address] [place], [address] CO2 [Moles/Vol] 16.0 mmol/L Low 21.0-32.0 [facility] Comment on above: Performed By: #### L 100.0100, L500.2500 ####[facility] [address] [place], [address] Creatinine [Mass/Vol] 0.88 mg/dL Normal 0.55-1.02 [facility] Comment on above: Result Comment: The validity of the calculated GFR GFRAA in patients over70 years has not been determined. Clinical correlation isessential. Performed By: #### L 100.0100, L500.2500 ####[facility] [address] [place], [address] ECRCL 97.69 ml/min Normal [facility] Comment on above: Performed By: #### L 100.0100, L500.2500 ####[facility] [address] [place], [address] EST GFR - AA 97 mL/min Normal >60 [facility] Comment on above: Result Comment: Afri can Indian GFR Calc Performed By: #### L 100.0100, L500.2500 ####[facility] [address] [place], [address] GAP 15 Normal 5-15 [facility] Comment on above: Performed By: #### L 100.0100, L500.2500 ####[facility] [address] [place], [address] GFR/1.73 sq M.predicted among non-blacks MDRD (S/P/Bld) [Vol rate/Area] 80 mL/min/{1.73_m2} Normal >60 [facility] Comment on above: Result Comment: Non- GFR Calc Performed By: #### L 100.0100, L500.2500 ####[facility] [address] [place], [address] Glucose [Mass/Vol] 546 mg/dL Invalid Interpretation Code 74-106 [facility] Comment on above: Result Comment: Crit ical Result(s) Called at: 05:07:31 10/21/2024 by:Nan Friedman to [facility]. Results read back by same.Glucose result greater than or equal to 200 mg/dLsuggests DIABETES MELLITUS per A.D.A. criteria. Performed By: #### L 100.0100, L500.2500 ####[facility] [address] [place], [address] Potassium [Moles/Vol] 5.3 mmol/L High 3.5-5.1 [facility] Comment on above: Performed By: #### L 100.0100, L500.2500 ####[facility] [address] [place], [address] Sodium [Moles/Vol] 128 mmol/L Low 136-145 [facility] Comment on above: Performed By: #### L 100.0100, L500.2500 ####[facility] [address] [place], [address] Urea nitrogen [Mass/Vol] 15 mg/dL Normal 7-18 [facility] Comment on above: Performed By: #### L 100.0100, L500.2500 ####[facility] [address] [place], [address] Bedside Glucoseon 10-21-2024 FINGERSTICK GLU 296 mg/dL High -[address] [place] [address] Comment on above: Result Comment: EDGAR ANTOINETTEENT OF PATIENT CARE PER NURSING PROTOCOL Performed By: #### L 501.080 ####[facility] [address] [place], [address] FINGERSTICK GLU 187 mg/dL High [address] [place] [address] Comment on above: Result Comment: EDGAR GEMENT OF PATIENT CARE PER NURSING PROTOCOL Performed By: #### L 501.080 ####[facility] [address] [place], [address] FINGERSTICK GLU 408 mg/dL High 74-106 [facility] Comment on above: Result Comment: EDGAR GEMENT OF PATIENT CARE PER NURSING PROTOCOL Performed By: #### L 501.080 ####[facility] [address] [place], [address] FINGERSTICK GLU 481 mg/dL Invalid Interpretation Code 74-106 [facility] Comment on above: Result Comment: Repe at TestMANAGEMENT OF PATIENT CARE PER NURSING PROTOCOL Performed By: #### L 501.080 ####[facility] [address] [place], [address] CBC W/Diff, Automatedon 09-29 Absolute Lymph 2.01 X10 3/uL Normal 0.83-4.51 [facility] Comment on above: Performed By: #### L 100.0100, L500.2500 ####[facility] [address] [place], [address] Absolute Neut 13.3 X10 3/uL High 2.0-7.7 [facility] Comment on above: Performed By: #### L 100.0100, L500.2500 ####[facility] [address] [place], [address] Basophils/100 WBC (Bld) 0.5 % Normal 0-1 [facility] Comment on above: Performed By: #### L 100.0100, L500.2500 ####[facility] [address] [place], [address] Eosinophils/100 WBC (Bld) 1.8 % Normal 0-5 [facility] Comment on above: Performed By: #### L 100.0100, L500.2500 ####[facility] [address] [place], [address] Erythrocyte distribution width (RBC) [Ratio] 12.9 % Normal 11.6-14.6 [facility] Comment on above: Performed By: #### L 100.0100, L500.2500 ####[facility] [address] [place], [address] Hematocrit (Bld) [Volume fraction] 44.3 % Normal 37-47 [facility] Comment on above: Performed By: #### L 100.0100, L500.2500 ####[facility] [address] [place], [address] Hemoglobin (Bld) [Mass/Vol] 14.3 g/dL Normal 12.0-15.0 [facility] Comment on above: Performed By: #### L 100.0100, L500.2500 ####[facility] [address] [place], [address] IG% 0.800 Normal 0.0-0.9 [facility] Comment on above: Result Comment: IG% - Immature Granulocytes (promyelocytes, myelocytes andmetamyelocytes) > 1% indicates that a LEFT SHIFT is Present. Performed By: #### L 100.0100, L500.2500 ####[facility] [address] [place], [address] Lymphocytes/100 WBC (Bld) 12.2 % Low 19-41 [facility] Comment on above: Performed By: #### L 100.0100, L500.2500 ####[facility] [address] [place], [address] MCH (RBC) [Entitic mass] 28.8 pg Normal 27.0-32.0 [facility] Comment on above: Performed By: #### L 100.0100, L500.2500 ####[facility] [address] [place], [address] MCHC (RBC) [Mass/Vol] 32.3 g/dL Normal 32-36 [facility] Comment on above: Performed By: #### L 100.0100, L500.2500 ####[facility] [address] [place], [address] MCV (RBC) [Entitic vol] 89.1 fL Normal 81-99 [facility] Comment on above: Performed By: #### L 100.0100, L500.2500 ####[facility] [address] [place], [address] Monocytes/100 WBC (Bld) 4.3 % Normal 0-10 [facility] Comment on above: Performed By: #### L 100.0100, L500.2500 ####[facility] [address] [place], [address] Neutrophils/100 WBC (Bld) 80.4 % High 47-70 [facility] Comment on above: Performed By: #### L 100.0100, L500.2500 ####[facility] [address] [place], [address] Nucleated RBC (Bld) [#/Vol] 0 10*3/uL Normal 0-5 [facility] Comment on above: Performed By: #### L 100.0100, L500.2500 ####[facility] [address] [place], [address] Platelet mean volume (Bld) [Entitic vol] 12.6 fL High 6.2-12.0 [facility] Comment on above: Performed By: #### L 100.0100, L500.2500 ####[facility] [address] [place], [address] Platelets (Bld) [#/Vol] 192 10*3/uL Normal 150-450 [facility] Comment on above: Performed By: #### L 100.0100, L500.2500 ####[facility] [address] [place], [address] RBC (Bld) [#/Vol] 4.97 10*6/uL Normal 4.2-5.4 [facility] Comment on above: Performed By: #### L 100.0100, L500.2500 ####[facility] [address] [place], [address] RDW SD 41.7 fl Normal 35.1-43.9 [facility] Comment on above: Performed By: #### L 100.0100, L500.2500 ####[facility] [address] [place], [address] WBC (Bld) [#/Vol] 16.5 10*3/uL High 4.4-11.0 [facility] Comment on above: Performed By: #### L 100.0100, L500.2500 ####[facility] [address] [place], [address] Discharge Instructionon 09-29 Discharge Instruction Normal [facility] Basic Metabolic Profile (BMP )on 10-20-2024 BUN/CRE 13.2 RATIO Normal 10-20 [facility] Comment on above: Performed By: #### L 100.0100, L500.2500 ####[facility] [address] [place], [address] CA,Total 8.8 mg/dL Normal 8.5-10.1 [facility] Comment on above: Performed By: #### L 100.0100, L500.2500 ####[facility] [address] [place], [address] Chloride [Moles/Vol] 104 mmol/L Normal 98-107 [facility] Comment on above: Performed By: #### L 100.0100, L500.2500 ####[facility] [address] [place], [address] CO2 [Moles/Vol] 22.0 mmol/L Normal 21.0-32.0 [facility] Comment on above: Performed By: #### L 100.0100, L500.2500 ####[facility] [address] [place], [address] Creatinine [Mass/Vol] 0.61 mg/dL Normal 0.55-1.02 [facility] Comment on above: Result Comment: The validity of the calculated GFR GFRAA in patients over70 years has not been determined. Clinical correlation isessential. Performed By: #### L 100.0100, L500.2500 ####[facility] [address] [place], [address] ECRCL 140.93 ml/min Normal [facility] Comment on above: Performed By: #### L 100.0100, L500.2500 ####[facility] [address] [place], [address] EST GFR - AA 149 mL/min Normal >60 [facility] Comment on above: Result Comment: Afri can Indian GFR Calc Performed By: #### L 100.0100, L500.2500 ####[facility] [address] [place], [address] GAP 8 Normal 5-15 [facility] Comment on above: Performed By: #### L 100.0100, L500.2500 ####[facility] [address] [place], [address] GFR/1.73 sq M.predicted among non-blacks MDRD (S/P/Bld) [Vol rate/Area] 123 mL/min/{1.73_m2} Normal >60 [facility] Comment on above: Result Comment: Non- GFR Calc Performed By: #### L 100.0100, L500.2500 ####[facility] [address] [place], [address] Glucose [Mass/Vol] 222 mg/dL High 74-106 [facility] Comment on above: Result Comment: Gluc ose result greater than or equal to 200 mg/dLsuggests DIABETES MELLITUS per A.D.A. criteria. Performed By: #### L 100.0100, L500.2500 ####[facility] [address] [place], [address] Potassium [Moles/Vol] 4.2 mmol/L Normal 3.5-5.1 [facility] Comment on above: Performed By: #### L 100.0100, L500.2500 ####[facility] [address] [place], [address] Sodium [Moles/Vol] 134 mmol/L Low 136-145 [facility] Comment on above: Performed By: #### L 100.0100, L500.2500 ####[facility] [address] [place], [address] Urea nitrogen [Mass/Vol] 8 mg/dL Normal 7-18 [facility] Comment on above: Performed By: #### L 100.0100, L500.2500 ####[facility] [address] [place], [address] Bedside Glucoseon 10-20-2024 FINGERSTICK GLU 94 mg/dL Normal 74-106 [facility] Comment on above: Result Comment: EDGAR GEMENT OF PATIENT CARE PER NURSING PROTOCOL Performed By: #### L 501.080 ####[facility] [address] [place], [address] FINGERSTICK GLU 337 mg/dL High 74-106 [facility] Comment on above: Result Comment: EDGAR GEMENT OF PATIENT CARE PER NURSING PROTOCOL Performed By: #### L 501.080 ####[facility] [address] [place], [address] FINGERSTICK GLU 441 mg/dL High 74-106 [facility] Comment on above: Result Comment: EDGAR GEMENT OF PATIENT CARE PER NURSING PROTOCOL Performed By: #### L 501.080 ####[facility] [address] [place], [address] FINGERSTICK GLU 200 mg/dL High 74-106 [facility] Comment on above: Result Comment: EDGAR GEMENT OF PATIENT CARE PER NURSING PROTOCOL Performed By: #### L 501.080 ####[facility] [address] [place], [address] FINGERSTICK GLU 90 mg/dL Normal 74-106 [facility] Comment on above: Result Comment: EDGAR GEMENT OF PATIENT CARE PER NURSING PROTOCOL Performed By: #### L 501.080 ####[facility] [address] [place], [address] FINGERSTICK GLU 182 mg/dL High 74-106 [facility] Comment on above: Result Comment: EDGAR GEMENT OF PATIENT CARE PER NURSING PROTOCOL Performed By: #### L 501.080 ####[facility] [address] [place], [address] FINGERSTICK GLU 303 mg/dL High 74-106 [facility] Comment on above: Result Comment: DEGAR GEMENT OF PATIENT CARE PER NURSING PROTOCOL Performed By: #### L 501.080 ####[facility] [address] [place], [address] CBC W/Diff, Automatedon 02-2 -2024 Absolute Lymph 2.82 X10 3/uL Normal 0.83-4.51 [facility] Comment on above: Performed By: #### L 100.0100, L500.2500 ####[facility] [address] [place], [address] Absolute Neut 6.3 X10 3/uL Normal 2.0-7.7 [facility] Comment on above: Performed By: #### L 100.0100, L500.2500 ####[facility] [address] [place], [address] Basophils/100 WBC (Bld) 0.4 % Normal 0-1 [facility] Comment on above: Performed By: #### L 100.0100, L500.2500 ####[facility] [address] [place], [address] Eosinophils/100 WBC (Bld) 3.1 % Normal 0-5 [facility] Comment on above: Performed By: #### L 100.0100, L500.2500 ####[facility] [address] [place], [address] Erythrocyte distribution width (RBC) [Ratio] 13.0 % Normal 11.6-14.6 [facility] Comment on above: Performed By: #### L 100.0100, L500.2500 ####[facility] [address] [place], [address] Hematocrit (Bld) [Volume fraction] 40.2 % Normal 37-47 [facility] Comment on above: Performed By: #### L 100.0100, L500.2500 ####[facility] [address] [place], [address] Hemoglobin (Bld) [Mass/Vol] 13.0 g/dL Normal 12.0-15.0 [facility] Comment on above: Performed By: #### L 100.0100, L500.2500 ####[facility] [address] [place], [address] IG% 0.700 Normal 0.0-0.9 [facility] Comment on above: Result Comment: IG% - Immature Granulocytes (promyelocytes, myelocytes andmetamyelocytes) > 1% indicates that a LEFT SHIFT is Present. Performed By: #### L 100.0100, L500.2500 ####[facility] [address] [place], [address] Lymphocytes/100 WBC (Bld) 27.9 % Normal 19-41 [facility] Comment on above: Performed By: #### L 100.0100, L500.2500 ####[facility] [address] [place], [address] MCH (RBC) [Entitic mass] 28.6 pg Normal 27.0-32.0 [facility] Comment on above: Performed By: #### L 100.0100, L500.2500 ####[facility] [address] [place], [address] MCHC (RBC) [Mass/Vol] 32.3 g/dL Normal 32-36 [facility] Comment on above: Performed By: #### L 100.0100, L500.2500 ####[facility] [address] [place], [address] MCV (RBC) [Entitic vol] 88.5 fL Normal 81-99 [facility] Comment on above: Performed By: #### L 100.0100, L500.2500 ####[facility] [address] [place], [address] Monocytes/100 WBC (Bld) 5.5 % Normal 0-10 [facility] Comment on above: Performed By: #### L 100.0100, L500.2500 ####[facility] [address] [place], [address] Neutrophils/100 WBC (Bld) 62.4 % Normal 47-70 [facility] Comment on above: Performed By: #### L 100.0100, L500.2500 ####[facility] [address] [place], [address] Nucleated RBC (Bld) [#/Vol] 0 10*3/uL Normal 0-5 [facility] Comment on above: Performed By: #### L 100.0100, L500.2500 ####[facility] [address] [place], [address] Platelet mean volume (Bld) [Entitic vol] 12.5 fL High 6.2-12.0 [facility] Comment on above: Performed By: #### L 100.0100, L500.2500 ####[facility] [address] [place], [address] Platelets (Bld) [#/Vol] 158 10*3/uL Normal 150-450 [facility] Comment on above: Performed By: #### L 100.0100, L500.2500 ####[facility] [address] [place], [address] RBC (Bld) [#/Vol] 4.54 10*6/uL Normal 4.2-5.4 [facility] Comment on above: Performed By: #### L 100.0100, L500.2500 ####[facility] [address] [place], [address] RDW SD 42.4 fl Normal 35.1-43.9 [facility] Comment on above: Performed By: #### L 100.0100, L500.2500 ####[facility] [address] [place], [address] WBC (Bld) [#/Vol] 10.1 10*3/uL Normal 4.4-11.0 [facility] Comment on above: Performed By: #### L 100.0100, L500.2500 ####[facility] [address] [place], [address] Urine Cultureon 10-20-2024 URC Mixed Gram Positive Organisms [place] Count 11,000-25,000 MIXC Mixed contaminants. Submit a new specimen if indicated. Normal [facility] Comment on above: Performed By: #### M 100.2200 ####[facility] [address] [place], [address] Bedside Glucoseon 10-19-2024 FINGERSTICK GLU 246 mg/dL High 74-106 [facility] Comment on above: Result Comment: EDGAR GEMENT OF PATIENT CARE PER NURSING PROTOCOL Performed By: #### L 501.080 ####[facility] [address] [place], [address] FINGERSTICK GLU 85 mg/dL Normal 74-106 [facility] Comment on above: Result Comment: EDGAR GEMENT OF PATIENT CARE PER NURSING PROTOCOL Performed By: #### L 501.080 ####[facility] [address] [place], [address] FINGERSTICK GLU 35 mg/dL Invalid Interpretation Code [address] [place] [address] Comment on above: Result Comment: EDGAR GEMENT OF PATIENT CARE PER NURSING PROTOCOL Performed By: #### L 501.080 ####[facility] [address] [place], [address] FINGERSTICK GLU 64 mg/dL Low -[address] [place] [address] Comment on above: Result Comment: EDGAR GEMENT OF PATIENT CARE PER NURSING PROTOCOL Performed By: #### L 501.080 ####[facility] [address] [place], [address] FINGERSTICK GLU 156 mg/dL High 74-[address] [place] [address] Comment on above: Result Comment: EDGAR GEMENT OF PATIENT CARE PER NURSING PROTOCOL Performed By: #### L 501.080 ####[facility] [address] [place], [address] FINGERSTICK GLU 53 mg/dL Low -[address] [place] [address] Comment on above: Result Comment: EDGAR GEMENT OF PATIENT CARE PER NURSING PROTOCOL Performed By: #### L 501.080 ####[facility] [address] [place], [address] FINGERSTICK GLU 40 mg/dL Invalid Interpretation Code [address] [place] [address] Comment on above: Result Comment: Nelly blancas GivenMANAGEMENT OF PATIENT CARE PER NURSING PROTOCOL Performed By: #### L 501.080 ####[facility] [address] [place], [address] FINGERSTICK GLU 235 mg/dL High 74-106 [facility] Comment on above: Result Comment: EDGAR GEMENT OF PATIENT CARE PER NURSING PROTOCOL Performed By: #### L 501.080 ####[facility] [address] [place], [address] FINGERSTICK GLU 52 mg/dL Low 74-106 [facility] Comment on above: Result Comment: EDGAR GEMENT OF PATIENT CARE PER NURSING PROTOCOL Performed By: #### L 501.080 ####[facility] [address] [place], [address] FINGERSTICK GLU 132 mg/dL High 74-106 [facility] Comment on above: Result Comment: EDGAR GEMENT OF PATIENT CARE PER NURSING PROTOCOL Performed By: #### L 501.080 ####[facility] [address] [place], [address] CBC W/Diff, Automatedon 02 Absolute Lymph 3.09 X10 3/uL Normal 0.83-4.51 [facility] Comment on above: Performed By: #### L 100.0100, L500.4050 ####[facility] [address] [place], [address] Absolute Neut 6.9 X10 3/uL Normal 2.0-7.7 [facility] Comment on above: Performed By: #### L 100.0100, L500.4050 ####[facility] [address] [place], [address] Basophils/100 WBC (Bld) 0.5 % Normal 0-1 [facility] Comment on above: Performed By: #### L 100.0100, L500.4050 ####[facility] [address] [place], [address] Eosinophils/100 WBC (Bld) 1.8 % Normal 0-5 [facility] Comment on above: Performed By: #### L 100.0100, L500.4050 ####[facility] [address] [place], [address] Erythrocyte distribution width (RBC) [Ratio] 13.2 % Normal 11.6-14.6 [facility] Comment on above: Performed By: #### L 100.0100, L500.4050 ####[facility] [address] [place], [address] Hematocrit (Bld) [Volume fraction] 37.6 % Normal 37-47 [facility] Comment on above: Performed By: #### L 100.0100, L500.4050 ####[facility] [address] [place], [address] Hemoglobin (Bld) [Mass/Vol] 12.5 g/dL Normal 12.0-15.0 [facility] Comment on above: Performed By: #### L 100.0100, L500.4050 ####[facility] [address] [place], [address] IG% 0.800 Normal 0.0-0.9 [facility] Comment on above: Result Comment: IG% - Immature Granulocytes (promyelocytes, myelocytes andmetamyelocytes) > 1% indicates that a LEFT SHIFT is Present. Performed By: #### L 100.0100, L500.4050 ####[facility] [address] [place], [address] Lymphocytes/100 WBC (Bld) 27.9 % Normal 19-41 [facility] Comment on above: Performed By: #### L 100.0100, L500.4050 ####[facility] [address] [place], [address] MCH (RBC) [Entitic mass] 29.3 pg Normal 27.0-32.0 [facility] Comment on above: Performed By: #### L 100.0100, L500.4050 ####[facility] [address] [place], [address] MCHC (RBC) [Mass/Vol] 33.2 g/dL Normal 32-36 [facility] Comment on above: Performed By: #### L 100.0100, L500.4050 ####[facility] [address] [place], [address] MCV (RBC) [Entitic vol] 88.1 fL Normal 81-99 [facility] Comment on above: Performed By: #### L 100.0100, L500.4050 ####[facility] [address] [place], [address] Monocytes/100 WBC (Bld) 6.8 % Normal 0-10 [facility] Comment on above: Performed By: #### L 100.0100, L500.4050 ####[facility] [address] [place], [address] Neutrophils/100 WBC (Bld) 62.2 % Normal 47-70 [facility] Comment on above: Performed By: #### L 100.0100, L500.4050 ####[facility] [address] [place], [address] Nucleated RBC (Bld) [#/Vol] 0 10*3/uL Normal 0-5 [facility] Comment on above: Performed By: #### L 100.0100, L500.4050 ####[facility] [address] [place], [address] Platelet mean volume (Bld) [Entitic vol] 12.0 fL Normal 6.2-12.0 [facility] Comment on above: Performed By: #### L 100.0100, L500.4050 ####[facility] [address] [place], [address] Platelets (Bld) [#/Vol] 149 10*3/uL Low 150-450 [facility] Comment on above: Performed By: #### L 100.0100, L500.4050 ####[facility] [address] [place], [address] RBC (Bld) [#/Vol] 4.27 10*6/uL Normal 4.2-5.4 [facility] Comment on above: Performed By: #### L 100.0100, L500.4050 ####[facility] [address] [place], [address] RDW SD 42.4 fl Normal 35.1-43.9 [facility] Comment on above: Performed By: #### L 100.0100, L500.4050 ####[facility] [address] [place], [address] WBC (Bld) [#/Vol] 11.1 10*3/uL High 4.4-11.0 [facility] Comment on above: Performed By: #### L 100.0100, L500.4050 ####[facility] [address] [place], [address] Comprehensive Metabolic Prof ilon 10-19-2024 Albumin [Mass/Vol] 3.0 g/dL Low 3.2-5.0 [facility] Comment on above: Performed By: #### L 100.0100, L500.4050 ####[facility] [address] [place], [address] Albumin/Globulin [Mass ratio] 0.9 {ratio} Normal 0.9-2.4 [facility] Comment on above: Performed By: #### L 100.0100, L500.4050 ####[facility] [address] [place], [address] ALK P 67 U/L Normal 45-117 [facility] Comment on above: Performed By: #### L 100.0100, L500.4050 ####[facility] [address] [place], [address] ALT [Catalytic activity/Vol] 21 U/L Normal 13-56 [facility] Comment on above: Performed By: #### L 100.0100, L500.4050 ####[facility] [address] [place], [address] AST [Catalytic activity/Vol] 13 U/L Low 15-37 [facility] Comment on above: Performed By: #### L 100.0100, L500.4050 ####[facility] [address] [place], [address] Bilirubin [Mass/Vol] 0.40 mg/dL Normal 0.20-1.00 [facility] Comment on above: Result Comment: For patients on eltrombopag therapy, use of Dimension Gregory TBIL is not recommended. Performed By: #### L 100.0100, L500.4050 ####[facility] [address] [place], [address] BUN/CRE 14.4 RATIO Normal 10-20 [facility] Comment on above: Performed By: #### L 100.0100, L500.4050 ####[facility] [address] [place], [address] CA,Total 8.2 mg/dL Low 8.5-10.1 [facility] Comment on above: Performed By: #### L 100.0100, L500.4050 ####[facility] [address] [place], [address] Chloride [Moles/Vol] 112 mmol/L High 98-107 [facility] Comment on above: Performed By: #### L 100.0100, L500.4050 ####[facility] [address] [place], [address] CO2 [Moles/Vol] 21.0 mmol/L Normal 21.0-32.0 [facility] Comment on above: Performed By: #### L 100.0100, L500.4050 ####[facility] [address] [place], [address] Creatinine [Mass/Vol] 0.55 mg/dL Normal 0.55-1.02 [facility] Comment on above: Result Comment: The validity of the calculated GFR GFRAA in patients over70 years has not been determined. Clinical correlation isessential. Performed By: #### L 100.0100, L500.4050 ####[facility] [address] [place], [address] ECRCL 156.31 ml/min Normal [facility] Comment on above: Performed By: #### L 100.0100, L500.4050 ####[facility] [address] [place], [address] EST GFR - AA 165 mL/min Normal >60 [facility] Comment on above: Result Comment: Afri can Indian GFR Calc Performed By: #### L 100.0100, L500.4050 ####[facility] [address] [place], [address] GAP 8 Normal 5-15 [facility] Comment on above: Performed By: #### L 100.0100, L500.4050 ####[facility] [address] [place], [address] GFR/1.73 sq M.predicted among non-blacks MDRD (S/P/Bld) [Vol rate/Area] 137 mL/min/{1.73_m2} Normal >60 [facility] Comment on above: Result Comment: Non- GFR Calc Performed By: #### L 100.0100, L500.4050 ####[facility] [address] [place], [address] Globulin (S) [Mass/Vol] 3.2 g/dL Normal 2.2-4.2 [facility] Comment on above: Performed By: #### L 100.0100, L500.4050 ####[facility] [address] [place], [address] Glucose [Mass/Vol] 49 mg/dL Low 74-106 [facility] Comment on above: Result Comment: Gluc ose result less than 50 mg/dL suggests HYPOGLYCEMIA. Performed By: #### L 100.0100, L500.4050 ####[facility] [address] [place], [address] Potassium [Moles/Vol] 3.7 mmol/L Normal 3.5-5.1 [facility] Comment on above: Performed By: #### L 100.0100, L500.4050 ####[facility] [address] [place], [address] Sodium [Moles/Vol] 140 mmol/L Normal 136-145 [facility] Comment on above: Performed By: #### L 100.0100, L500.4050 ####[facility] [address] [place], [address] T PROT 6.2 g/dL Low 6.4-8.2 [facility] Comment on above: Performed By: #### L 100.0100, L500.4050 ####[facility] [address] [place], [address] Urea nitrogen [Mass/Vol] 8 mg/dL Normal 7-18 [facility] Comment on above: Performed By: #### L 100.0100, L500.4050 ####[facility] [address] [place], [address] Glucoseon 10-19-2024 Glucose [Mass/Vol] 231 mg/dL High 74-106 [facility] Comment on above: Result Comment: Gluc ose result greater than or equal to 200 mg/dLsuggests DIABETES MELLITUS per A.D.A. criteria. Performed By: #### L 501.0100 ####[facility] [address] [place], [address] Glucose [Mass/Vol] 88 mg/dL Normal 74-106 [facility] Comment on above: Performed By: #### L 501.0100 ####[facility] [address] [place], [address] 12 Lead EKGon 10-18-2024 12 Lead EKG Normal [facility] Abdomen/Pelvis W IV Cont ONL Yon 10-18-2024 Abdomen/Pelvis W IV Cont ONLY Normal [facility] Acetone Serumon 10-18-2024 ACETONE SERUM Negative Normal NEG [facility] Comment on above: Performed By: #### L 501.6900 ####[facility] [address] [place], [address] Bedside Glucoseon 10-18-2024 FINGERSTICK GLU 85 mg/dL Normal [address] [place] [address] Comment on above: Result Comment: EDGAR GEMENT OF PATIENT CARE PER NURSING PROTOCOL Performed By: #### L 501.080 ####[facility] [address] [place], [address] FINGERSTICK GLU 100 mg/dL Normal [address] [place] [address] Comment on above: Result Comment: EDGAR GEMENT OF PATIENT CARE PER NURSING PROTOCOL Performed By: #### L 501.080 ####[facility] [address] [place], [address] FINGERSTICK GLU 62 mg/dL Low -[address] [place] [address] Comment on above: Result Comment: EDGAR GEMENT OF PATIENT CARE PER NURSING PROTOCOL Performed By: #### L 501.080 ####[facility] [address] [place], [address] CBC W/Diff, Automatedon 02-2 Absolute Lymph 1.82 X10 3/uL Normal 0.83-4.51 [facility] Comment on above: Performed By: #### L 501.2450, L100.0100, L700.6800, L500.4050 ####[facility] [address] [place], [address] Absolute Neut 14.0 X10 3/uL High 2.0-7.7 [facility] Comment on above: Performed By: #### L 501.2450, L100.0100, L700.6800, L500.4050 ####[facility] [address] [place], [address] Basophils/100 WBC (Bld) 0.2 % Normal 0-1 [facility] Comment on above: Performed By: #### L 501.2450, L100.0100, L700.6800, L500.4050 ####[facility] [address] [place], [address] Eosinophils/100 WBC (Bld) 0.2 % Normal 0-5 [facility] Comment on above: Performed By: #### L 501.2450, L100.0100, L700.6800, L500.4050 ####[facility] [address] [place], [address] Erythrocyte distribution width (RBC) [Ratio] 13.1 % Normal 11.6-14.6 [facility] Comment on above: Performed By: #### L 501.2450, L100.0100, L700.6800, L500.4050 ####[facility] [address] [place], [address] Hematocrit (Bld) [Volume fraction] 38.8 % Normal 37-47 [facility] Comment on above: Performed By: #### L 501.2450, L100.0100, L700.6800, L500.4050 ####[facility] [address] [place], [address] Hemoglobin (Bld) [Mass/Vol] 12.9 g/dL Normal 12.0-15.0 [facility] Comment on above: Performed By: #### L 501.2450, L100.0100, L700.6800, L500.4050 ####[facility] [address] [place], [address] IG% 0.600 Normal 0.0-0.9 [facility] Comment on above: Result Comment: IG% - Immature Granulocytes (promyelocytes, myelocytes andmetamyelocytes) > 1% indicates that a LEFT SHIFT is Present. Performed By: #### L 501.2450, L100.0100, L700.6800, L500.4050 ####[facility] [address] [place], [address] Lymphocytes/100 WBC (Bld) 10.7 % Low 19-41 [facility] Comment on above: Performed By: #### L 501.2450, L100.0100, L700.6800, L500.4050 ####[facility] [address] [place], [address] MCH (RBC) [Entitic mass] 29.3 pg Normal 27.0-32.0 [facility] Comment on above: Performed By: #### L 501.2450, L100.0100, L700.6800, L500.4050 ####[facility] [address] [place], [address] MCHC (RBC) [Mass/Vol] 33.2 g/dL Normal 32-36 [facility] Comment on above: Performed By: #### L 501.2450, L100.0100, L700.6800, L500.4050 ####[facility] [address] [place], [address] MCV (RBC) [Entitic vol] 88.2 fL Normal 81-99 [facility] Comment on above: Performed By: #### L 501.2450, L100.0100, L700.6800, L500.4050 ####[facility] [address] [place], [address] Monocytes/100 WBC (Bld) 6.1 % Normal 0-10 [facility] Comment on above: Performed By: #### L 501.2450, L100.0100, L700.6800, L500.4050 ####[facility] [address] [place], [address] Neutrophils/100 WBC (Bld) 82.2 % High 47-70 [facility] Comment on above: Performed By: #### L 501.2450, L100.0100, L700.6800, L500.4050 ####[facility] [address] [place], [address] Nucleated RBC (Bld) [#/Vol] 0 10*3/uL Normal 0-5 [facility] Comment on above: Performed By: #### L 501.2450, L100.0100, L700.6800, L500.4050 ####[facility] [address] [place], [address] Platelet mean volume (Bld) [Entitic vol] 12.3 fL High 6.2-12.0 [facility] Comment on above: Performed By: #### L 501.2450, L100.0100, L700.6800, L500.4050 ####[facility] [address] [place], [address] Platelets (Bld) [#/Vol] 166 10*3/uL Normal 150-450 [facility] Comment on above: Performed By: #### L 501.2450, L100.0100, L700.6800, L500.4050 ####[facility] [address] [place], [address] RBC (Bld) [#/Vol] 4.40 10*6/uL Normal 4.2-5.4 [facility] Comment on above: Performed By: #### L 501.2450, L100.0100, L700.6800, L500.4050 ####[facility] [address] [place], [address] RDW SD 42.5 fl Normal 35.1-43.9 [facility] Comment on above: Performed By: #### L 501.2450, L100.0100, L700.6800, L500.4050 ####[facility] [address] [place], [address] WBC (Bld) [#/Vol] 17.1 10*3/uL High 4.4-11.0 [facility] Comment on above: Performed By: #### L 501.2450, L100.0100, L700.6800, L500.4050 ####[facility] [address] [place], [address] Comprehensive Metabolic Prof [facility] 10-18-2024 Albumin [Mass/Vol] 3.7 g/dL Normal 3.2-5.0 [facility] Comment on above: Performed By: #### L 501.2450, L100.0100, L700.6800, L500.4050 ####[facility] [address] [place], [address] Albumin/Globulin [Mass ratio] 1.1 {ratio} Normal 0.9-2.4 [facility] Comment on above: Performed By: #### L 501.2450, L100.0100, L700.6800, L500.4050 ####[facility] [address] [place], [address] ALK P 84 U/L Normal 45-117 [facility] Comment on above: Performed By: #### L 501.2450, L100.0100, L700.6800, L500.4050 ####[facility] [address] [place], [address] ALT [Catalytic activity/Vol] 24 U/L Normal 13-56 [facility] Comment on above: Performed By: #### L 501.2450, L100.0100, L700.6800, L500.4050 ####[facility] [address] [place], [address] AST [Catalytic activity/Vol] 14 U/L Low 15-37 [facility] Comment on above: Performed By: #### L 501.2450, L100.0100, L700.6800, L500.4050 ####[facility] [address] [place], [address] Bilirubin [Mass/Vol] 0.40 mg/dL Normal 0.20-1.00 [facility] Comment on above: Result Comment: For patients on eltrombopag therapy, use of Dimension Gregory TBIL is not recommended. Performed By: #### L 501.2450, L100.0100, L700.6800, L500.4050 ####[facility] [address] [place], [address] BUN/CRE 19.7 RATIO Normal 10-20 [facility] Comment on above: Performed By: #### L 501.2450, L100.0100, L700.6800, L500.4050 ####[facility] [address] [place], [address] CA,Total 9.4 mg/dL Normal 8.5-10.1 [facility] Comment on above: Performed By: #### L 501.2450, L100.0100, L700.6800, L500.4050 ####[facility] [address] [place], [address] Chloride [Moles/Vol] 109 mmol/L High 98-107 [facility] Comment on above: Performed By: #### L 501.2450, L100.0100, L700.6800, L500.4050 ####[facility] [address] [place], [address] CO2 [Moles/Vol] 25.0 mmol/L Normal 21.0-32.0 [facility] Comment on above: Performed By: #### L 501.2450, L100.0100, L700.6800, L500.4050 ####[facility] [address] [place], [address] Creatinine [Mass/Vol] 0.76 mg/dL Normal 0.55-1.02 [facility] Comment on above: Result Comment: The validity of the calculated GFR GFRAA in patients over70 years has not been determined. Clinical correlation isessential. Performed By: #### L 501.2450, L100.0100, L700.6800, L500.4050 ####[facility] [address] [place], [address] ECRCL 123.05 ml/min Normal [facility] Comment on above: Performed By: #### L 501.2450, L100.0100, L700.6800, L500.4050 ####[facility] [address] [place], [address] EST GFR - AA 115 mL/min Normal >60 [facility] Comment on above: Result Comment: Afri can Indian GFR Calc Performed By: #### L 501.2450, L100.0100, L700.6800, L500.4050 ####[facility] [address] [place], [address] GAP 5 Normal 5-15 [facility] Comment on above: Performed By: #### L 501.2450, L100.0100, L700.6800, L500.4050 ####[facility] [address] [place], [address] GFR/1.73 sq M.predicted among non-blacks MDRD (S/P/Bld) [Vol rate/Area] 95 mL/min/{1.73_m2} Normal >60 [facility] Comment on above: Result Comment: Non- GFR Calc Performed By: #### L 501.2450, L100.0100, L700.6800, L500.4050 ####[facility] [address] [place], [address] Globulin (S) [Mass/Vol] 3.4 g/dL Normal 2.2-4.2 [facility] Comment on above: Performed By: #### L 501.2450, L100.0100, L700.6800, L500.4050 ####[facility] [address] [place], [address] Glucose [Mass/Vol] 116 mg/dL High 74-106 [facility] Comment on above: Result Comment: Fast ing Glucose result from 100 to 125 mg/dLsuggests IMPAIRED HOMEOSTASIS per A.D.A. criteria. Performed By: #### L 501.2450, L100.0100, L700.6800, L500.4050 ####[facility] [address] [place], [address] Potassium [Moles/Vol] 4.0 mmol/L Normal 3.5-5.1 [facility] Comment on above: Performed By: #### L 501.2450, L100.0100, L700.6800, L500.4050 ####[facility] [address] [place], [address] Sodium [Moles/Vol] 139 mmol/L Normal 136-145 [facility] Comment on above: Performed By: #### L 501.2450, L100.0100, L700.6800, L500.4050 ####[facility] [address] [place], [address] T PROT 7.1 g/dL Normal 6.4-8.2 [facility] Comment on above: Performed By: #### L 501.2450, L100.0100, L700.6800, L500.4050 ####[facility] [address] [place], [address] Urea nitrogen [Mass/Vol] 15 mg/dL Normal 7-18 [facility] Comment on above: Performed By: #### L 501.2450, L100.0100, L700.6800, L500.4050 ####[facility] [address] [place], [address] Emergency Department Summary on 10-18-2024 Emergency Department Summary Normal [facility] H AND P Exam - Hospitaliston 10-18-2024 H&P Exam - Hospitalist Normal [facility] Lactic Acidon 10-18-2024 Lactate [Moles/Vol] 1.4 mmol/L Normal 0.4-1.9 [facility] Comment on above: Order Comment: Y Performed By: #### L 700.6800, L503.6005 ####[facility] [address] [place], [address] Lipaseon 10-18-2024 Lipase [Catalytic activity/Vol] 18 U/L Low 73-393 [facility] Comment on above: Performed By: #### L 501.2450, L100.0100, L700.6800, L500.4050 ####[facility] [address] [place], [address] M100.678on 10-18-2024 M100.678 SARS-CoV-2 (COVID 19 ) Negative INFLUENZA A Negative INFLUENZA B Negative RSV PCR Negative Normal [facility] Comment on above: Performed By: #### M 100.678 ####[facility] [address] [place], [address] Magnesiumon 10-18-2024 Magnesium [Mass/Vol] 1.8 mg/dL Normal 1.6-2.6 [facility] Comment on above: Order Comment: Comme nts: May add to ED labsComments: may add to ED labs Performed By: #### L 509.7000, L501.2300, L501.5200 ####[facility] [address] [place], [address] Phosphoruson 10-18-2024 Phosphate [Mass/Vol] 3.3 mg/dL Normal 2.5-4.9 [facility] Comment on above: Order Comment: Comme nts: May add to ED labsComments: may add to ED labs Performed By: #### L 509.7000, L501.2300, L501.5200 ####[facility] [address] [place], [address] ,Serum,hCG Quali.on 10-18-2024 HCG, SERUM QUAL Negative Normal [facility] Comment on above: Performed By: #### L 501.2450, L100.0100, L700.6800, L500.4050 ####[facility] [address] [place], [address] HCG, SERUM QUAL Normal [facility] Comment on above: Result Comment: Mary sanchez via OM: Ordered Performed By: #### L 700.6800, L503.6005 ####[facility] [address] [place], [address] INTERNAL QC OK? Normal [facility] Comment on above: Result Comment: Canc elled via OM: MD Ordered Performed By: #### L 700.6800, L503.6005 ####[facility] [address] [place], [address] RECORD KIT LOT# Normal [facility] Comment on above: Result Comment: Canc elled via OM: MD Ordered Performed By: #### L 700.6800, L503.6005 ####[facility] [address] [place], [address] Procalcitoninon 10-18-2024 Procalcitonin 0.07 ng/mL Normal 0.00-0.09 [...] #### L 509.7000, L501.2300, L501.5200 ####[facility] [address] [place], [place], [address] Urinalysis, Completeon 10-18 BACTERIA 1+ /hpf Normal None Seen [facility] Comment on above: Order Comment: CLEAN CATCH Performed By: #### L 400.0001 ####[facility] [address] [place], [address] EPI,SQUAMOUS 0-5 SEEN Normal 5-10 [facility] Comment on above: Order Comment: CLEAN CATCH Performed By: #### L 400.0001 ####[facility] [address] [place], [address] Mucus Ql (Urine sed) 1+ /hpf Normal [facility] Comment on above: Order Comment: CLEAN CATCH Performed By: #### L 400.0001 ####[facility] [address] [place], [address] RBC 5-10 SEEN Normal 0-5 [facility] Comment on above: Order Comment: CLEAN CATCH Performed By: #### L 400.0001 ####[facility] [address] [place], [address] WBC 10-25 SEEN Normal 0-5 [facility] Comment on above: Order Comment: CLEAN CATCH Performed By: #### L 400.0001 ####[facility] [address] [place], [address] Venous Blood Gason 5 Blood Gas Type ISABELLE Normal [facility] Comment on above: Performed By: #### L 9000.0810 ####[facility] [address] [place], [address] CO2 [Moles/Vol] 26 mmol/L Normal 23-33 [facility] Comment on above: Performed By: #### L 9000.0810 ####[facility] [address] [place], [address] HCO3 (Bld) [Moles/Vol] 25 mmol/L Normal 22-26 [facility] Comment on above: Performed By: #### L 9000.0810 ####[facility] [address] [place], [address] O2 Delivery Dev Room Air Normal [facility] Comment on above: Performed By: #### L 9000.0810 ####[facility] [address] [place], [address] SITE Not entered Normal [facility] Comment on above: Performed By: #### L 9000.0810 ####[facility] [address] [place], [address] VBG BE 0 mmol/L Normal -1.0-3.5 [facility] Comment on above: Performed By: #### L 9000.0810 ####[facility] [address] [place], [address] VBG pCO2 41.6 mmHg Normal 41-51 [facility] Comment on above: Performed By: #### L 9000.0810 ####[facility] [address] [place], [address] VBG pH 7.38 Normal 7.32-7.42 [facility] Comment on above: Performed By: #### L 9000.0810 ####[facility] [address] [place], [address] VBG PO2 32 mmHg Normal 25-40 [facility] Comment on above: Performed By: #### L 9000.0810 ####[facility] [address] [place], [address] VBG SO2 59 Normal 50-70 [facility] Comment on above: Performed By: #### L 9000.0810 ####[facility] [address] [place], [address] CNPDanitza 10-02-2024 GIOVANA Telephone (ENDOIN) KATHLEEN VILLA ([id number]) 1995 F CHT Date Time Provider Department 10/02/24 JESSICA GUERRERO During your visit today, we recorded the following information about you: Nichole Quinteros 10/02/2024 9:53 AM Signed Patient has been identified by name and date of : Yes Type of form: [facility] Medical Physician Order for Insulin Pump Therapy and Diabetes Testing Form received via: abstract When form is completed, fax form to fax number provided. Form has been forwarded to: Provider's mailbox. Provider name: FRIEDA Urena Diamond, RN 10/02/2024 2:45 PM Signed Clinical notes and DWO for infusion supplies placed on providers desk to review and advise. To be faxed to [facility] Medical [phone] Jessica Guerrero APRN.CNP 10/02/2024 3:09 PM Signed Form signed. RHYS Urena Diamond, RN 10/10/2024 11:49 AM Signed Form re-faxed per [facility] request Allergies As of Date: [...] - Fully Assessed Reason for Visit: Forms [343] Prescriptions as of 10/10/2024 - Acetone, Urine, [...] Units subcutaneously every 24 hours. - Insulin [place], Disposable, (PEN NEEDLE) 32 gauge x /32 [...] (post-traumatic stress disorder) [F43.10] 12/25/2012 DVT prophylaxis [DEN0523] 12/25/2012 09/04/2013 DISPOSITION AND FOLLOW-UP [V999.01] 12/25/2012 09/04/2013 HTN (hypertension) [I10] Hypertension in , antepartum [O16.9] 09/19/2013 01/08/2014 GBS (group B Streptococcus carrier), +RV cultur*11/11/2013 04/16/2014 [Z34.90] 11/22/2013 04/16/2014 Diabetes mellitus in (HCC) [O24.919] 12/25/2013 04/16/2014 Diabetic ketoacidosis without coma associated w*01/08/2014 02/04/2023 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] 01/08/2014 DVT prophylaxis [JQF4077] 02/25/2014 04/16/2014 care and examination [Z39.2] 02/25/2014 04/16/2014 Near syncope [R55] 06/17/2014 Dyspnea [R06.00] 11/04/2014 Pre-op testing [Z01.818] 11/28/2014 Atelectasis [J98.11] 12/10/2014 Fluid overload [E87.70] 12/10/2014 12/15/2014 Tachycardia, unspecified [R00.0] 12/10/2014 12/12/2014 Post-operative pain [G89.18] 12/10/2014 Anxiety [F41.9] 12/10/2014 12/13/2014 Pre-existing type 1 diabetes mellitus (more content not included)... Normal [facility] Basic Metabolic Profile (BMP )on 09-02-2024 BUN/CRE 16.2 RATIO Normal 06-16 [facility] Comment on above: Performed By: #### L 100.0100, L500.2500 ####[facility] [address] [place], [address] CA,Total 9.2 mg/dL Normal 8.5-10.1 [facility] Comment on above: Performed By: #### L 100.0100, L500.2500 ####[facility] [address] [place], [address] Chloride [Moles/Vol] 112 mmol/L High 98-107 [facility] Comment on above: Performed By: #### L 100.0100, L500.2500 ####[facility] [address] [place], [address] CO2 [Moles/Vol] 21.0 mmol/L Normal 21.0-32.0 [facility] Comment on above: Performed By: #### L 100.0100, L500.2500 ####[facility] [address] [place], [address] Creatinine [Mass/Vol] 0.86 mg/dL Normal 0.55-1.02 [facility] Comment on above: Result Comment: The validity of the calculated GFR GFRAA in patients over70 years has not been determined. Clinical correlation isessential. Performed By: #### L 100.0100, L500.2500 ####[facility] [address] [place], [address] ECRCL 99.96 ml/min Normal [facility] Comment on above: Performed By: #### L 100.0100, L500.2500 ####[facility] [address] [place], [address] EST GFR - AA 99 mL/min Normal >60 [facility] Comment on above: Result Comment: Afri can Indian GFR Calc Performed By: #### L 100.0100, L500.2500 ####[facility] [address] [place], [address] GAP 10 Normal 5-15 [facility] Comment on above: Performed By: #### L 100.0100, L500.2500 ####[facility] [address] [place], [address] GFR/1.73 sq M.predicted among non-blacks MDRD (S/P/Bld) [Vol rate/Area] 82 mL/min/{1.73_m2} Normal >60 [facility] Comment on above: Result Comment: Non- GFR Calc Performed By: #### L 100.0100, L500.2500 ####[facility] [address] [place], [address] Glucose [Mass/Vol] 129 mg/dL High 74-106 [facility] Comment on above: Result Comment: Fast ing Glucose result greater than or equal to 126 mg/dLsuggests DIABETES MELLITUS per A.D.A. criteria. Performed By: #### L 100.0100, L500.2500 ####[facility] [address] [place], [address] Potassium [Moles/Vol] 3.0 mmol/L Low 3.5-5.1 [facility] Comment on above: Performed By: #### L 100.0100, L500.2500 ####[facility] [address] [place], [address] Sodium [Moles/Vol] 142 mmol/L Normal 136-145 [facility] Comment on above: Performed By: #### L 100.0100, L500.2500 ####[facility] [address] [place], [address] Urea nitrogen [Mass/Vol] 14 mg/dL Normal 7-18 [facility] Comment on above: Performed By: #### L 100.0100, L500.2500 ####[facility] [address] [place], [address] CBC W/Diff, Automatedon 0 Absolute Lymph 2.60 X10 3/uL Normal 0.83-4.51 [facility] Comment on above: Performed By: #### L 100.0100, L500.2500 ####[facility] [address] [place], [address] Absolute Neut 12.8 X10 3/uL High 2.0-7.7 [facility] Comment on above: Performed By: #### L 100.0100, L500.2500 ####[facility] [address] [place], [address] Basophils/100 WBC (Bld) 0.5 % Normal 0-1 [facility] Comment on above: Performed By: #### L 100.0100, L500.2500 ####[facility] [address] [place], [address] Eosinophils/100 WBC (Bld) 0.4 % Normal 0-5 [facility] Comment on above: Performed By: #### L 100.0100, L500.2500 ####[facility] [address] [place], [address] Erythrocyte distribution width (RBC) [Ratio] 12.6 % Normal 11.6-14.6 [facility] Comment on above: Performed By: #### L 100.0100, L500.2500 ####[facility] [address] [place], [address] Hematocrit (Bld) [Volume fraction] 42.7 % Normal 37-47 [facility] Comment on above: Performed By: #### L 100.0100, L500.2500 ####[facility] [address] [place], [address] Hemoglobin (Bld) [Mass/Vol] 14.1 g/dL Normal 12.0-15.0 [facility] Comment on above: Performed By: #### L 100.0100, L500.2500 ####[facility] [address] [place], [address] IG% 1.000 High 0.0-0.9 [facility] Comment on above: Result Comment: IG% - Immature Granulocytes (promyelocytes, myelocytes andmetamyelocytes) > 1% indicates that a LEFT SHIFT is Present. Performed By: #### L 100.0100, L500.2500 ####[facility] [address] [place], [address] Lymphocytes/100 WBC (Bld) 15.8 % Low 19-41 [facility] Comment on above: Performed By: #### L 100.0100, L500.2500 ####[facility] [address] [place], [address] MCH (RBC) [Entitic mass] 28.9 pg Normal 27.0-32.0 [facility] Comment on above: Performed By: #### L 100.0100, L500.2500 ####[facility] [address] [place], [address] MCHC (RBC) [Mass/Vol] 33.0 g/dL Normal 32-36 [facility] Comment on above: Performed By: #### L 100.0100, L500.2500 ####[facility] [address] [place], [address] MCV (RBC) [Entitic vol] 87.5 fL Normal 81-99 [facility] Comment on above: Performed By: #### L 100.0100, L500.2500 ####[facility] [address] [place], [address] Monocytes/100 WBC (Bld) 4.6 % Normal 0-10 [facility] Comment on above: Performed By: #### L 100.0100, L500.2500 ####[facility] [address] [place], [address] Neutrophils/100 WBC (Bld) 77.7 % High 47-70 [facility] Comment on above: Performed By: #### L 100.0100, L500.2500 ####[facility] [address] [place], [address] Nucleated RBC (Bld) [#/Vol] 0 10*3/uL Normal 0-5 [facility] Comment on above: Performed By: #### L 100.0100, L500.2500 ####[facility] [address] [place], [address] Platelet mean volume (Bld) [Entitic vol] 12.5 fL High 6.2-12.0 [facility] Comment on above: Performed By: #### L 100.0100, L500.2500 ####[facility] [address] [place], [address] Platelets (Bld) [#/Vol] 199 10*3/uL Normal 150-450 [facility] Comment on above: Performed By: #### L 100.0100, L500.2500 ####[facility] [address] [place], [address] RBC (Bld) [#/Vol] 4.88 10*6/uL Normal 4.2-5.4 [facility] Comment on above: Performed By: #### L 100.0100, L500.2500 ####[facility] [address] [place], [address] RDW SD 40.3 fl Normal 35.1-43.9 [facility] Comment on above: Performed By: #### L 100.0100, L500.2500 ####[facility] [address] [place], [address] WBC (Bld) [#/Vol] 16.5 10*3/uL High 4.4-11.0 [facility] Comment on above: Performed By: #### L 100.0100, L500.2500 ####[facility] [address] [place], [address] Emergency Department Summary on 09-02-2024 Emergency Department Summary Normal [facility] Urinalysis, Completeon 09-02 BACTERIA 2+ /hpf Normal None Seen [facility] Comment on above: Order Comment: CLEAN CATCH Performed By: #### L 400.0001 ####[facility] [address] [place], [address] EPI,SQUAMOUS 0-5 SEEN Normal 5-10 [facility] Comment on above: Order Comment: CLEAN CATCH Performed By: #### L 400.0001 ####[facility] [address] [place], [address] Mucus Ql (Urine sed) RARE Normal [facility] Comment on above: Order Comment: CLEAN CATCH Performed By: #### L 400.0001 ####[facility] [address] [place], [address] WBC 0-5 SEEN Normal 0-5 [facility] Comment on above: Order Comment: CLEAN CATCH Performed By: #### L 400.0001 ####[facility] [address] [place], [address] RBC 0 SEEN Normal 0-5 [facility] Comment on above: Order Comment: CLEAN CATCH Performed By: #### L 400.0001 ####[facility] [address] [place], [address] 36on 08-07-2024 36 Medication: Skyrizi 150mg/ml Dosing Schedule: 150mg every 12 weeks Prior Authorization: Submitted date: 08.07.2024 [place] reference #: [id number] Approval dates: 08.07.2024-08.27.2024 [phone] Normal [facility] Urine Cultureon 08-04-2024 [facility] Mixed Gram Positive Organisms [place] Count 11,000-25,000 [facility] Mixed contaminants. Submit a new specimen if indicated. Normal [facility] Comment on above: Performed By: #### M 100.2566 ####[facility] [address] [place], [address] Basic Metabolic Profile (BMP )on 08-03-2024 BUN/CRE 9.9 RATIO Low 10-20 [facility] Comment on above: Order Comment: Call MD with results STAT Performed By: #### L 501.9520, L500.2500, L501.2300 ####[facility] [address] [place], [address] CA,Total 7.9 mg/dL Low 8.5-10.1 [facility] Comment on above: Order Comment: Call MD with results STAT Performed By: #### L 501.9520, L500.2500, L501.2300 ####[facility] [address] [place], [address] Chloride [Moles/Vol] 114 mmol/L High 98-107 [facility] Comment on above: Order Comment: Call MD with results STAT Performed By: #### L 501.9520, L500.2500, L501.2300 ####[facility] [address] [place], [address] CO2 [Moles/Vol] 22.0 mmol/L Normal 21.0-32.0 [facility] Comment on above: Order Comment: Call MD with results STAT Performed By: #### L 501.9520, L500.2500, L501.2300 ####[facility] [address] [place], [address] Creatinine [Mass/Vol] 0.61 mg/dL Normal 0.55-1.02 [facility] Comment on above: Order Comment: Call MD with results STAT Result Comment: The validity of the calculated GFR GFRAA in patients over70 years has not been determined. Clinical correlation isessential. Performed By: #### L 501.9520, L500.2500, L501.2300 ####[facility] [address] [place], [address] ECRCL 140.93 ml/min Normal [facility] Comment on above: Order Comment: Call MD with results STAT Performed By: #### L 501.9520, L500.2500, L501.2300 ####[facility] [address] [place], [address] EST GFR - AA 149 mL/min Normal >60 [facility] Comment on above: Order Comment: Call MD with results STAT Result Comment: Afri can Indian GFR Calc Performed By: #### L 501.9520, L500.2500, L501.2300 ####[facility] [address] [place], [address] GAP 5 Normal 5-15 [facility] Comment on above: Order Comment: Call MD with results STAT Performed By: #### L 501.9520, L500.2500, L501.2300 ####[facility] [address] [place], [address] GFR/1.73 sq M.predicted among non-blacks MDRD (S/P/Bld) [Vol rate/Area] 123 mL/min/{1.73_m2} Normal >60 [facility] Comment on above: Order Comment: Call MD with results STAT Result Comment: Non- GFR Calc Performed By: #### L 501.9520, L500.2500, L501.2300 ####[facility] [address] [place], [address] Glucose [Mass/Vol] 193 mg/dL High 74-106 [facility] Comment on above: Order Comment: Call MD with results STAT Result Comment: Fast ing Glucose result greater than or equal to 126 mg/dLsuggests DIABETES MELLITUS per A.D.A. criteria. Performed By: #### L 501.9520, L500.2500, L501.2300 ####[facility] [address] [place], [address] Potassium [Moles/Vol] 4.5 mmol/L Normal 3.5-5.1 [facility] Comment on above: Order Comment: Call MD with results STAT Result Comment: Slig ht Hemolysis, Result may be falsely increased. Performed By: #### L 501.9520, L500.2500, L501.2300 ####[facility] [address] [place], [address] Sodium [Moles/Vol] 140 mmol/L Normal 136-145 [facility] Comment on above: Order Comment: Call MD with results STAT Performed By: #### L 501.9520, L500.2500, L501.2300 ####[facility] [address] [place], [address] Urea nitrogen [Mass/Vol] 6 mg/dL Low 7-18 [facility] Comment on above: Order Comment: Call MD with results STAT Performed By: #### L 501.9520, L500.2500, L501.2300 ####[facility] [address] [place], [address] BUN Normal 7-18 [facility] Comment on above: Order Comment: Call MD with results STAT Result Comment: @NOT NEEDED BY [employer]INEER Performed By: #### L 500.2500 ####[facility] [address] [place], [address] BUN/CRE Normal 10-20 [facility] Comment on above: Order Comment: Call with results STAT Result Comment: @NOT NEEDED BY [employer] Performed By: #### L 500.2500 ####[facility] [address] [place], [address] CA,Total Normal 8.5-10.1 [facility] Comment on above: Order Comment: Call MD with results STAT Result Comment: @NOT NEEDED BY ROLANR2 TRAFFIC CIRCUIT ENGINEER Performed By: #### L 500.2500 ####[facility] [address] [place], [address] CL Normal 98-107 [facility] Comment on above: Order Comment: Call MD with results STAT Result Comment: @NOT NEEDED BY PETRONAR2 TRAFFIC CIRCUIT ENGINEER Performed By: #### L 500.2500 ####[facility] [address] [place], [address] CO2 Normal 21.0-32.0 [facility] Comment on above: Order Comment: Call MD with results STAT Result Comment: @NOT NEEDED BY TMPETRONAR2 TRAFFIC CIRCUIT ENGINEER Performed By: #### L 500.2500 ####[facility] [address] [place], [address] CREAT,SERUM Normal 0.55-1.02 [facility] Comment on above: Order Comment: Call MD with results STAT Result Comment: @NOT NEEDED BY TMPETRONAR2 TRAFFIC CIRCUIT ENGINEER Performed By: #### L 500.2500 ####[facility] [address] [place], [address] EST GFR Normal >60 [facility] Comment on above: Order Comment: Call MD with results STAT Result Comment: @NOT NEEDED BY PETRONAR2 TRAFFIC CIRCUIT ENGINEER Performed By: #### L 500.2500 ####[facility] [address] [place], [address] EST GFR - AA Normal >60 [facility] Comment on above: Order Comment: Call MD with results STAT Result Comment: @NOT NEEDED BY PETRONAR2 TRAFFIC CIRCUIT ENGINEER Performed By: #### L 500.2500 ####[facility] [address] [place], [address] GAP Normal 5-15 [facility] Comment on above: Order Comment: Call MD with results STAT Result Comment: @NOT NEEDED BY ROLANR2 TRAFFIC CIRCUIT ENGINEER Performed By: #### L 500.2500 ####[facility] [address] [place], [address] GLU Normal 74-106 [facility] Comment on above: Order Comment: Call MD with results STAT Result Comment: @NOT NEEDED BY TMILLER2 TRAFFIC CIRCUIT ENGINEER Performed By: #### L 500.2500 ####[facility] [address] [place], [address] Potassium Normal 3.5-5.1 [facility] Comment on above: Order Comment: Call MD with results STAT Result Comment: @NOT NEEDED BY ROLANR2 TRAFFIC CIRCUIT ENGINEER Performed By: #### L 500.2500 ####[facility] [address] [place], [address] Basic Metabolic Profile (BMP) Normal 136-145 [facility] Comment on above: Order Comment: Call MD with results STAT Result Comment: @NOT NEEDED BY [employer] Performed By: #### L 500.2500 ####[facility] [address] [place], [address] Bedside Glucoseon 08-03-2024 FINGERSTICK GLU 212 mg/dL High 74-106 [facility] Comment on above: Result Comment: EDGAR GEMENT OF PATIENT CARE PER NURSING PROTOCOL Performed By: #### L 501.080 ####[facility] [address] [place], [address] FINGERSTICK GLU 256 mg/dL High 74-106 [facility] Comment on above: Result Comment: EDGAR GEMENT OF PATIENT CARE PER NURSING PROTOCOL Performed By: #### L 501.080 ####[facility] [address] [place], [address] FINGERSTICK GLU 153 mg/dL High 74-106 [facility] Comment on above: Result Comment: EDGAR GEMENT OF PATIENT CARE PER NURSING PROTOCOL Performed By: #### L 501.080 ####[facility] [address] [place], [address] Discharge Instructionon 12-0 Discharge Instruction Normal [facility] Phosphoruson 08-03-2024 Phosphate [Mass/Vol] 1.8 mg/dL Low 2.5-4.9 [facility] Comment on above: Order Comment: Call MD with results STAT Performed By: #### L 501.9520, L500.2500, L501.2300 ####[facility] [address] [place], [address] Thyroid Stim Hormone (TSH)on 08-03-2024 TSH 2.360 uIU/mL Normal 0.358-3.740 [facility] Comment on above: Order Comment: Call MD with results STAT Performed By: #### L 501.9520, L500.2500, L501.2300 ####[facility] [address] [place], [address] Acetone Serumon 08-02-2024 ACETONE SERUM Negative Normal NEG [facility] Comment on above: Performed By: #### L 501.6900 ####[facility] [address] [place], [address] ACETONE SERUM SMALL Abnormal NEG [facility] Comment on above: Result Comment: RESU LTS CALLED TO [facility]FORREST 08/02/24 0107 Jhoana Martínez.REPORT READ BACK BY SAME. Performed By: #### L 501.2450, L501.5200, L500.3400, L700.6800, L500.2500, L501.6900, L503.6005, L100.0100 ####[facility] [address] [place], [address] Basic Metabolic Profile (BMP )on 08-02-2024 BUN Normal 7-18 [facility] Comment on above: Order Comment: Call MD with results STAT Result Comment: @NOT NEEDED BY [place]INE[employer] Performed By: #### L 500.2500 ####[facility] [address] [place], [address] BUN/CRE Normal 10-20 [facility] Comment on above: Order Comment: Call MD with results STAT Result Comment: @NOT NEEDED BY [place]INEER Performed By: #### L 500.2500 ####[facility] [address] [place], [address] CA,Total Normal 8.5-10.1 [facility] Comment on above: Order Comment: Call MD with results STAT Result Comment: @NOT NEEDED BY ROLANR2 TRAFFIC CIRCUIT ENGINEER Performed By: #### L 500.2500 ####[facility] [address] [place], [address] CL Normal 98-107 [facility] Comment on above: Order Comment: Call MD with results STAT Result Comment: @NOT NEEDED BY ROLANR2 TRAFFIC CIRCUIT ENGINEER Performed By: #### L 500.2500 ####[facility] [address] [place], [address] CO2 Normal 21.0-32.0 [facility] Comment on above: Order Comment: Call MD with results STAT Result Comment: @NOT NEEDED BY PETRONAR2 TRAFFIC CIRCUIT ENGINEER Performed By: #### L 500.2500 ####[facility] [address] [place], [address] CREAT,SERUM Normal 0.55-1.02 [facility] Comment on above: Order Comment: Call MD with results STAT Result Comment: @NOT NEEDED BY ROLANR2 TRAFFIC CIRCUIT ENGINEER Performed By: #### L 500.2500 ####[facility] [address] [place], [address] EST GFR Normal >60 [facility] Comment on above: Order Comment: Call with results STAT Result Comment: @NOT NEEDED BY ROLANR2 TRAFFIC CIRCUIT ENGINEER Performed By: #### L 500.2500 ####[facility] [address] [place], [address] EST GFR - AA Normal >60 [facility] Comment on above: Order Comment: Call MD with results STAT Result Comment: @NOT NEEDED BY TMPETRONAR2 TRAFFIC CIRCUIT ENGINEER Performed By: #### L 500.2500 ####[facility] [address] [place], [address] GAP Normal 5-15 [facility] Comment on above: Order Comment: Call MD with results STAT Result Comment: @NOT NEEDED BY TMPERTONAR2 TRAFFIC CIRCUIT ENGINEER Performed By: #### L 500.2500 ####[facility] [address] [place], [address] GLU Normal 74-106 [facility] Comment on above: Order Comment: Call MD with results STAT Result Comment: @NOT NEEDED BY TMILLER2 TRAFFIC CIRCUIT ENGINEER Performed By: #### L 500.2500 ####[facility] [address] [place], [address] Potassium Normal 3.5-5.1 [facility] Comment on above: Order Comment: Call MD with results STAT Result Comment: @NOT NEEDED BY TMPETRONAR2 TRAFFIC CIRCUIT ENGINEER Performed By: #### L 500.2500 ####[facility] [address] [place], [address] Basic Metabolic Profile (BMP) Normal 136-145 [facility] Comment on above: Order Comment: Call MD with results STAT Result Comment: @NOT NEEDED BY PETRONAR2 TRAFFIC CIRCUIT ENGINEER Performed By: #### L 500.2500 ####[facility] [address] [place], [address] BUN Normal 7-18 [facility] Comment on above: Order Comment: Call MD with results STAT Result Comment: @NOT NEEDED BY TMPETRONAR2 TRAFFIC CIRCUIT ENGINEER Performed By: #### L 500.2500 ####[facility] [address] [place], [address] BUN/CRE Normal 10-20 [facility] Comment on above: Order Comment: Call MD with results STAT Result Comment: @NOT NEEDED BY TMPETRONAR2 TRAFFIC CIRCUIT ENGINEER Performed By: #### L 500.2500 ####[facility] [address] [place], [address] CA,Total Normal 8.5-10.1 [facility] Comment on above: Order Comment: Call MD with results STAT Result Comment: @NOT NEEDED BY TMILLER2 TRAFFIC CIRCUIT ENGINEER Performed By: #### L 500.2500 ####[facility] [address] [place], [address] CL Normal 98-107 [facility] Comment on above: Order Comment: Call MD with results STAT Result Comment: @NOT NEEDED BY ROLANR2 TRAFFIC CIRCUIT ENGINEER Performed By: #### L 500.2500 ####[facility] [address] [place], [address] CO2 Normal 21.0-32.0 [facility] Comment on above: Order Comment: Call MD with results STAT Result Comment: @NOT NEEDED BY ROLANR2 TRAFFIC CIRCUIT ENGINEER Performed By: #### L 500.2500 ####[facility] [address] [place], [address] CREAT,SERUM Normal 0.55-1.02 [facility] Comment on above: Order Comment: Call MD with results STAT Result Comment: @NOT NEEDED BY ROLANR2 TRAFFIC CIRCUIT ENGINEER Performed By: #### L 500.2500 ####[facility] [address] [place], [address] EST GFR Normal >60 [facility] Comment on above: Order Comment: Call MD with results STAT Result Comment: @NOT NEEDED BY ROLANR2 TRAFFIC CIRCUIT ENGINEER Performed By: #### L 500.2500 ####[facility] [address] [place], [address] EST GFR - AA Normal >60 [facility] Comment on above: Order Comment: Call MD with results STAT Result Comment: @NOT NEEDED BY ROLANR2 TRAFFIC CIRCUIT ENGINEER Performed By: #### L 500.2500 ####[facility] [address] [place], [address] GAP Normal 5-15 [facility] Comment on above: Order Comment: Call MD with results STAT Result Comment: @NOT NEEDED BY TMPETRONAR2 TRAFFIC CIRCUIT ENGINEER Performed By: #### L 500.2500 ####[facility] [address] [place], [address] GLU Normal 74-106 [facility] Comment on above: Order Comment: Call MD with results STAT Result Comment: @NOT NEEDED BY ROLANR2 TRAFFIC CIRCUIT ENGINEER Performed By: #### L 500.2500 ####[facility] [address] [place], [address] Potassium Normal 3.5-5.1 [facility] Comment on above: Order Comment: Call MD with results STAT Result Comment: @NOT NEEDED BY TMPETRONAR2 TRAFFIC CIRCUIT ENGINEER Performed By: #### L 500.2500 ####[facility] [address] [place], [address] Basic Metabolic Profile (BMP) Normal 136-145 [facility] Comment on above: Order Comment: Call MD with results STAT Result Comment: @NOT NEEDED BY ROLANR2 TRAFFIC CIRCUIT ENGINEER Performed By: #### L 500.2500 ####[facility] [address] [place], [address] BUN/CRE 11.7 RATIO Normal 10-20 [facility] Comment on above: Order Comment: Call MD with results STAT Performed By: #### L 500.2500 ####[facility] [address] [place], [address] CA,Total 7.7 mg/dL Low 8.5-10.1 [facility] Comment on above: Order Comment: Call MD with results STAT Performed By: #### L 500.2500 ####[facility] [address] [place], [address] Chloride [Moles/Vol] 116 mmol/L High 98-107 [facility] Comment on above: Order Comment: Call MD with results STAT Performed By: #### L 500.2500 ####[facility] [address] [place], [address] CO2 [Moles/Vol] 21.0 mmol/L Normal 21.0-32.0 [facility] Comment on above: Order Comment: Call MD with results STAT Performed By: #### L 500.2500 ####[facility] [address] [place], [address] Creatinine [Mass/Vol] 0.68 mg/dL Normal 0.55-1.02 [facility] Comment on above: Order Comment: Call MD with results STAT Result Comment: The validity of the calculated GFR GFRAA in patients over70 years has not been determined. Clinical correlation isessential. Performed By: #### L 500.2500 ####[facility] [address] [place], [address] ECRCL 126.42 ml/min Normal [facility] Comment on above: Order Comment: Call MD with results STAT Performed By: #### L 500.2500 ####[facility] [address] [place], [address] EST GFR - AA 130 mL/min Normal >60 [facility] Comment on above: Order Comment: Call MD with results STAT Result Comment: Afri can Indian GFR Calc Performed By: #### L 500.2500 ####[facility] [address] [place], [address] GAP 5 Normal 5-15 [facility] Comment on above: Order Comment: Call MD with results STAT Performed By: #### L 500.2500 ####[facility] [address] [place], [address] GFR/1.73 sq M.predicted among non-blacks MDRD (S/P/Bld) [Vol rate/Area] 107 mL/min/{1.73_m2} Normal >60 [facility] Comment on above: Order Comment: Call MD with results STAT Result Comment: Non- GFR Calc Performed By: #### L 500.2500 ####[facility] [address] [place], [place], [id number] Glucose [Mass/Vol] 116 mg/dL High 74-106 [facility] Comment on above: Order Comment: Call MD with results STAT Result Comment: Fast ing Glucose result from 100 to 125 mg/dLsuggests IMPAIRED HOMEOSTASIS per A.D.A. criteria. Performed By: #### L 500.2500 ####[facility] [address] [place], [address] Potassium [Moles/Vol] 3.8 mmol/L Normal 3.5-5.1 [facility] Comment on above: Order Comment: Call MD with results STAT Performed By: #### L 500.2500 ####[facility] [address] [place], [address] Sodium [Moles/Vol] 141 mmol/L Normal 136-145 [facility] Comment on above: Order Comment: Call MD with results STAT Performed By: #### L 500.2500 ####[facility] [address] [place], [address] Urea nitrogen [Mass/Vol] 8 mg/dL Normal 7-18 [facility] Comment on above: Order Comment: Call MD with results STAT Performed By: #### L 500.2500 ####[facility] [address] [place], [address] BUN Normal 7-18 [facility] Comment on above: Order Comment: Call MD with results STAT Result Comment: NO S PECIMEN DRAWN Performed By: #### L 500.2500 ####[facility] [address] [place], [address] BUN/CRE Normal 10-20 [facility] Comment on above: Order Comment: Call MD with results STAT Result Comment: NO S PECIMEN DRAWN Performed By: #### L 500.2500 ####[facility] [address] [place], [address] CA,Total Normal 8.5-10.1 [facility] Comment on above: Order Comment: Call MD with results STAT Result Comment: NO S PECIMEN DRAWN Performed By: #### L 500.2500 ####[facility] [address] [place], [address] CL Normal 98-107 [facility] Comment on above: Order Comment: Call MD with results STAT Result Comment: NO S PECIMEN DRAWN Performed By: #### L 500.2500 ####[facility] [address] [place], [address] CO2 Normal 21.0-32.0 [facility] Comment on above: Order Comment: Call MD with results STAT Result Comment: NO S PECIMEN DRAWN Performed By: #### L 500.2500 ####[facility] [address] [place], [address] CREAT,SERUM Normal 0.55-1.02 [facility] Comment on above: Order Comment: Call MD with results STAT Result Comment: NO S PECIMEN DRAWN Performed By: #### L 500.2500 ####[facility] [address] [place], [address] EST GFR Normal >60 [facility] Comment on above: Order Comment: Call MD with results STAT Result Comment: NO S PECIMEN DRAWN Performed By: #### L 500.2500 ####[facility] [address] [place], [address] EST GFR - AA Normal >60 [facility] Comment on above: Order Comment: Call MD with results STAT Result Comment: NO S PECIMEN DRAWN Performed By: #### L 500.2500 ####[facility] [address] [place], [address] GAP Normal 5-15 [facility] Comment on above: Order Comment: Call MD with results STAT Result Comment: NO S PECIMEN DRAWN Performed By: #### L 500.2500 ####[facility] [address] [place], [address] GLU Normal 74-106 [facility] Comment on above: Order Comment: Call MD with results STAT Result Comment: NO S PECIMEN DRAWN Performed By: #### L 500.2500 ####[facility] [address] [place], [address] Potassium Normal 3.5-5.1 [facility] Comment on above: Order Comment: Call MD with results STAT Result Comment: NO S PECIMEN DRAWN Performed By: #### L 500.2500 ####[facility] [address] [place], [address] Basic Metabolic Profile (BMP) Normal 136-145 [facility] Comment on above: Order Comment: Call MD with results STAT Result Comment: NO S PECIMEN DRAWN Performed By: #### L 500.2500 ####[facility] [address] [place], [address] BUN Normal 7-18 [facility] Comment on above: Order Comment: Call MD with results STAT Result Comment: NO S PECIMEN DRAWN Performed By: #### L 501.9985, L500.2500 ####[facility] [address] [place], [address] BUN/CRE Normal 10-20 [facility] Comment on above: Order Comment: Call MD with results STAT Result Comment: NO S PECIMEN DRAWN Performed By: #### L 501.9985, L500.2500 ####[facility] [address] [place], [address] CA,Total Normal 8.5-10.1 [facility] Comment on above: Order Comment: Call MD with results STAT Result Comment: NO S PECIMEN DRAWN Performed By: #### L 501.9985, L500.2500 ####[facility] [address] [place], [address] CL Normal 98-107 [facility] Comment on above: Order Comment: Call MD with results STAT Result Comment: NO S PECIMEN DRAWN Performed By: #### L 501.9985, L500.2500 ####[facility] [address] [place], [address] CO2 Normal 21.0-32.0 [facility] Comment on above: Order Comment: Call MD with results STAT Result Comment: NO S PECIMEN DRAWN Performed By: #### L 501.9985, L500.2500 ####[facility] [address] [place], [address] CREAT,SERUM Normal 0.55-1.02 [facility] Comment on above: Order Comment: Call MD with results STAT Result Comment: NO S PECIMEN DRAWN Performed By: #### L 501.9985, L500.2500 ####[facility] [address] [place], [address] EST GFR Normal >60 [facility] Comment on above: Order Comment: Call MD with results STAT Result Comment: NO S PECIMEN DRAWN Performed By: #### L 501.9985, L500.2500 ####[facility] [address] [place], [address] EST GFR - AA Normal >60 [facility] Comment on above: Order Comment: Call MD with results STAT Result Comment: NO S PECIMEN DRAWN Performed By: #### L 501.9985, L500.2500 ####[facility] [address] [place], [address] GAP Normal 5-15 [facility] Comment on above: Order Comment: Call MD with results STAT Result Comment: NO S PECIMEN DRAWN Performed By: #### L 501.9985, L500.2500 ####[facility] [address] [place], [address] GLU Normal 74-106 [facility] Comment on above: Order Comment: Call MD with results STAT Result Comment: NO S PECIMEN DRAWN Performed By: #### L 501.9985, L500.2500 ####[facility] [address] [place], [address] Potassium Normal 3.5-5.1 [facility] Comment on above: Order Comment: Call MD with results STAT Result Comment: NO S PECIMEN DRAWN Performed By: #### L 501.9985, L500.2500 ####[facility] [address] [place], [address] Basic Metabolic Profile (BMP) Normal 136-145 [facility] Comment on above: Order Comment: Call MD with results STAT Result Comment: NO S PECIMEN DRAWN Performed By: #### L 501.9985, L500.2500 ####[facility] [address] [place], [address] BUN/CRE 16.6 RATIO Normal 10-20 [facility] Comment on above: Performed By: #### L 501.2450, L501.5200, L500.3400, L700.6800, L500.2500, L501.6900, L503.6005, L100.0100 ####[facility] [address] [place], [address] CA,Total 8.9 mg/dL Normal 8.5-10.1 [facility] Comment on above: Performed By: #### L 501.2450, L501.5200, L500.3400, L700.6800, L500.2500, L501.6900, L503.6005, L100.0100 ####[facility] [address] [place], [address] Chloride [Moles/Vol] 107 mmol/L Normal 98-107 [facility] Comment on above: Performed By: #### L 501.2450, L501.5200, L500.3400, L700.6800, L500.2500, L501.6900, L503.6005, L100.0100 ####[facility] [address] [place], [address] CO2 [Moles/Vol] 17.0 mmol/L Low 21.0-32.0 [facility] Comment on above: Performed By: #### L 501.2450, L501.5200, L500.3400, L700.6800, L500.2500, L501.6900, L503.6005, L100.0100 ####[facility] [address] [place], [address] Creatinine [Mass/Vol] 0.84 mg/dL Normal 0.55-1.02 [facility] Comment on above: Result Comment: The validity of the calculated GFR GFRAA in patients over70 years has not been determined. Clinical correlation isessential. Performed By: #### L 501.2450, L501.5200, L500.3400, L700.6800, L500.2500, L501.6900, L503.6005, L100.0100 ####[facility] [address] [place], [place], [address] ECRCL 102.34 ml/min Normal [facility] Comment on above: Performed By: #### L 501.2450, L501.5200, L500.3400, L700.6800, L500.2500, L501.6900, L503.6005, L100.0100 ####[facility] [address] [place], [address] EST GFR - AA 102 mL/min Normal >60 [facility] Comment on above: Result Comment: Afri can Indian GFR Calc Performed By: #### L 501.2450, L501.5200, L500.3400, L700.6800, L500.2500, L501.6900, L503.6005, L100.0100 ####[facility] [address] [place], [address] GAP 14 Normal 5-15 [facility] Comment on above: Performed By: #### L 501.2450, L501.5200, L500.3400, L700.6800, L500.2500, L501.6900, L503.6005, L100.0100 ####[facility] [address] [place], [address] GFR/1.73 sq M.predicted among non-blacks MDRD (S/P/Bld) [Vol rate/Area] 84 mL/min/{1.73_m2} Normal >60 [facility] Comment on above: Result Comment: Non- GFR Calc Performed By: #### L 501.2450, L501.5200, L500.3400, L700.6800, L500.2500, L501.6900, L503.6005, L100.0100 ####[facility] [address] [place], [address] Glucose [Mass/Vol] 253 mg/dL High 74-106 [facility] Comment on above: Result Comment: Gluc ose result greater than or equal to 200 mg/dLsuggests DIABETES MELLITUS per A.D.A. criteria. Performed By: #### L 501.2450, L501.5200, L500.3400, L700.6800, L500.2500, L501.6900, L503.6005, L100.0100 ####[facility] [address] [place], [address] Potassium [Moles/Vol] 3.4 mmol/L Low 3.5-5.1 [facility] Comment on above: Performed By: #### L 501.2450, L501.5200, L500.3400, L700.6800, L500.2500, L501.6900, L503.6005, L100.0100 ####[facility] [address] [place], [address] Sodium [Moles/Vol] 139 mmol/L Normal 136-145 [facility] Comment on above: Performed By: #### L 501.2450, L501.5200, L500.3400, L700.6800, L500.2500, L501.6900, L503.6005, L100.0100 ####[facility] [address] [place], [address] Urea nitrogen [Mass/Vol] 14 mg/dL Normal 7-18 [facility] Comment on above: Performed By: #### L 501.2450, L501.5200, L500.3400, L700.6800, L500.2500, L501.6900, L503.6005, L100.0100 ####[facility] [address] [place], [address] Bedside Glucoseon 08-02-2024 FINGERSTICK GLU 246 mg/dL High 74-106 [facility] Comment on above: Result Comment: EDGAR GEMENT OF PATIENT CARE PER NURSING PROTOCOL Performed By: #### L 501.080 ####[facility] [address] [place], [address] FINGERSTICK GLU 77 mg/dL Normal 74-106 [facility] Comment on above: Result Comment: EDGAR GEMENT OF PATIENT CARE PER NURSING PROTOCOL Performed By: #### L 501.080 ####[facility] [address] [place], [address] FINGERSTICK GLU 90 mg/dL Normal 74-106 [facility] Comment on above: Result Comment: EDGAR GEMENT OF PATIENT CARE PER NURSING PROTOCOL Performed By: #### L 501.080 ####[facility] [address] [place], [address] FINGERSTICK GLU 163 mg/dL High 74-106 [facility] Comment on above: Result Comment: EDGAR GEMENT OF PATIENT CARE PER NURSING PROTOCOL Performed By: #### L 501.080 ####[facility] [address] [place], [address] FINGERSTICK GLU 102 mg/dL Normal 74-106 [facility] Comment on above: Result Comment: EDGAR GEMENT OF PATIENT CARE PER NURSING PROTOCOL Performed By: #### L 501.080 ####[facility] [address] [place], [address] FINGERSTICK GLU 147 mg/dL High 74-106 [facility] Comment on above: Result Comment: EDGAR GEMENT OF PATIENT CARE PER NURSING PROTOCOL Performed By: #### L 501.080 ####[facility] [address] [place], [address] FINGERSTICK GLU 83 mg/dL Normal 74-106 [facility] Comment on above: Result Comment: EDGAR GEMENT OF PATIENT CARE PER NURSING PROTOCOL Performed By: #### L 501.080 ####[facility] [address] [place], [address] FINGERSTICK GLU 121 mg/dL High 74-106 [facility] Comment on above: Result Comment: EDGAR GEMENT OF PATIENT CARE PER NURSING PROTOCOL Performed By: #### L 501.080 ####[facility] [address] [place], [address] FINGERSTICK GLU 95 mg/dL Normal 74-106 [facility] Comment on above: Result Comment: EDGAR GEMENT OF PATIENT CARE PER NURSING PROTOCOL Performed By: #### L 501.080 ####[facility] [address] [place], [address] FINGERSTICK GLU 123 mg/dL High 74-106 [facility] Comment on above: Result Comment: EDGAR GEMENT OF PATIENT CARE PER NURSING PROTOCOL Performed By: #### L 501.080 ####[facility] [address] [place], [address] FINGERSTICK GLU 147 mg/dL High 74-106 [facility] Comment on above: Result Comment: EDGAR GEMENT OF PATIENT CARE PER NURSING PROTOCOL Performed By: #### L 501.080 ####[facility] [address] [place], [address] FINGERSTICK GLU 263 mg/dL High 74-106 [facility] Comment on above: Result Comment: EDGAR GEMENT OF PATIENT CARE PER NURSING PROTOCOL Performed By: #### L 501.080 ####[facility] [address] [place], [address] FINGERSTICK GLU 251 mg/dL High 74-106 [facility] Comment on above: Result Comment: EDGAR GEMENT OF PATIENT CARE PER NURSING PROTOCOL Performed By: #### L 501.080 ####[facility] [address] [place], [address] CBC W/Diff, Automatedon 12-0 -2023 Absolute Lymph 1.00 X10 3/uL Normal 0.83-4.51 [facility] Comment on above: Performed By: #### L 501.2450, L501.5200, L500.3400, L700.6800, L500.2500, L501.6900, L503.6005, L100.0100 ####[facility] [address] [place], [address] Absolute Neut 11.9 X10 3/uL High 2.0-7.7 [facility] Comment on above: Performed By: #### L 501.2450, L501.5200, L500.3400, L700.6800, L500.2500, L501.6900, L503.6005, L100.0100 ####[facility] [address] [place], [address] Basophils/100 WBC (Bld) 0.2 % Normal 0-1 [facility] Comment on above: Performed By: #### L 501.2450, L501.5200, L500.3400, L700.6800, L500.2500, L501.6900, L503.6005, L100.0100 ####[facility] [address] [place], [address] Eosinophils/100 WBC (Bld) 0.0 % Normal 0-5 [facility] Comment on above: Performed By: #### L 501.2450, L501.5200, L500.3400, L700.6800, L500.2500, L501.6900, L503.6005, L100.0100 ####[facility] [address] [place], [place], [phone] Erythrocyte distribution width (RBC) [Ratio] 12.3 % Normal 11.6-14.6 [facility] Comment on above: Performed By: #### L 501.2450, L501.5200, L500.3400, L700.6800, L500.2500, L501.6900, L503.6005, L100.0100 ####[facility] [address] [facility] [place], [phone]) Hematocrit (Bld) [Volume fraction] 38.3 % Normal 37-47 [facility] Comment on above: Performed By: #### L 501.2450, L501.5200, L500.3400, L700.6800, L500.2500, L501.6900, L503.6005, L100.0100 ####[facility] [address] [place], [address] Hemoglobin (Bld) [Mass/Vol] 13.0 g/dL Normal 12.0-15.0 [facility] Comment on above: Performed By: #### L 501.2450, L501.5200, L500.3400, L700.6800, L500.2500, L501.6900, L503.6005, L100.0100 ####[facility] [address] [place], [address] IG% 0.600 Normal 0.0-0.9 [facility] Comment on above: Result Comment: IG% - Immature Granulocytes (promyelocytes, myelocytes andmetamyelocytes) > 1% indicates that a LEFT SHIFT is Present. Performed By: #### L 501.2450, L501.5200, L500.3400, L700.6800, L500.2500, L501.6900, L503.6005, L100.0100 ####[facility] [address] [place], [address] Lymphocytes/100 WBC (Bld) 7.5 % Low 19-41 [facility] Comment on above: Performed By: #### L 501.2450, L501.5200, L500.3400, L700.6800, L500.2500, L501.6900, L503.6005, L100.0100 ####[facility] [address] [place], [address] MCH (RBC) [Entitic mass] 29.7 pg Normal 27.0-32.0 [facility] Comment on above: Performed By: #### L 501.2450, L501.5200, L500.3400, L700.6800, L500.2500, L501.6900, L503.6005, L100.0100 ####[facility] [address] [place], [address] MCHC (RBC) [Mass/Vol] 33.9 g/dL Normal 32-36 [facility] Comment on above: Performed By: #### L 501.2450, L501.5200, L500.3400, L700.6800, L500.2500, L501.6900, L503.6005, L100.0100 ####[facility] [address] [place], [address] MCV (RBC) [Entitic vol] 87.6 fL Normal 81-99 [facility] Comment on above: Performed By: #### L 501.2450, L501.5200, L500.3400, L700.6800, L500.2500, L501.6900, L503.6005, L100.0100 ####[facility] [address] [place], [address] Monocytes/100 WBC (Bld) 2.8 % Normal 0-10 [facility] Comment on above: Performed By: #### L 501.2450, L501.5200, L500.3400, L700.6800, L500.2500, L501.6900, L503.6005, L100.0100 ####[facility] [address] [place], [address] Neutrophils/100 WBC (Bld) 88.9 % High 47-70 [facility] Comment on above: Performed By: #### L 501.2450, L501.5200, L500.3400, L700.6800, L500.2500, L501.6900, L503.6005, L100.0100 ####[facility] [address] [place], [address] Nucleated RBC (Bld) [#/Vol] 0 10*3/uL Normal 0-5 [facility] Comment on above: Performed By: #### L 501.2450, L501.5200, L500.3400, L700.6800, L500.2500, L501.6900, L503.6005, L100.0100 ####[facility] [address] [place], [address] Platelet mean volume (Bld) [Entitic vol] 13.0 fL High 6.2-12.0 [facility] Comment on above: Performed By: #### L 501.2450, L501.5200, L500.3400, L700.6800, L500.2500, L501.6900, L503.6005, L100.0100 ####[facility] [address] [place], [address] Platelets (Bld) [#/Vol] 169 10*3/uL Normal 150-450 [facility] Comment on above: Performed By: #### L 501.2450, L501.5200, L500.3400, L700.6800, L500.2500, L501.6900, L503.6005, L100.0100 ####[facility] [address] [place], [address] RBC (Bld) [#/Vol] 4.37 10*6/uL Normal 4.2-5.4 [facility] Comment on above: Performed By: #### L 501.2450, L501.5200, L500.3400, L700.6800, L500.2500, L501.6900, L503.6005, L100.0100 ####[facility] [address] [place], [address] RDW SD 39.6 fl Normal 35.1-43.9 [facility] Comment on above: Performed By: #### L 501.2450, L501.5200, L500.3400, L700.6800, L500.2500, L501.6900, L503.6005, L100.0100 ####[facility] [address] [place], [address] WBC (Bld) [#/Vol] 13.4 10*3/uL High 4.4-11.0 [facility] Comment on above: Performed By: #### L 501.2450, L501.5200, L500.3400, L700.6800, L500.2500, L501.6900, L503.6005, L100.0100 ####[facility] [address] [place], [place], [address] Emergency Department Summary on 08-02-2024 Emergency Department Summary Normal [facility] H AND P Exam - Hospitaliston 08-02-2024 H&P Exam - Hospitalist Normal [facility] Hemoglobin A1con 08-02-2024 HbA1c (Bld) [Mass fraction] 7.9 % High 3.8-5.6 [facility] Comment on above: Result Comment: Norm al < 5.7 % Prediabetic 5.7 - 6.4 % Diabetic >or= 6.5 % Please note range changes. Performed By: #### L 501.9985, L500.2500 ####[facility] [address] [place], [address] Kidney and Bladderon 024 Kidney and Bladder Normal [facility] Lactic Acidon 08-02-2024 Lactate [Moles/Vol] 1.4 mmol/L Normal 0.4-1.9 [facility] Comment on above: Performed By: #### L 503.6005 ####[facility] [address] [place], [address] Lactate [Moles/Vol] 0.9 mmol/L Normal 0.4-1.9 [facility] Comment on above: Order Comment: Y Performed By: #### L 503.6005 ####[facility] [address] [place], [address] Lactate [Moles/Vol] 2.2 mmol/L Invalid Interpretation Code 0.4-1.9 [facility] Comment on above: Order Comment: Y Result Comment: Crit ical Result(s) Called at: 01:06:13 08/02/2024 by:Jhoana Martínez lforrestResults read back by same. Performed By: #### L 501.2450, L501.5200, L500.3400, L700.6800, L500.2500, L501.6900, L503.6005, L100.0100 ####[facility] [address] [place], [address] Lipaseon 08-02-2024 Lipase [Catalytic activity/Vol] U/L Low 13-75 [facility] Comment on above: Result Comment: Sulma schmitz note:LIPASE revised reference range effective 22.New Lipase methodology. Expected to produce lower valuesthan the previous assay method.NEW Reference Range: 13 - 75 U/L Performed By: #### L 501.2450, L501.5200, L500.3400, L700.6800, L500.2500, L501.6900, L503.6005, L100.0100 ####[facility] [address] [place], [address] Liver Profileon 08-02-2024 Albumin [Mass/Vol] 4.1 g/dL Normal 3.2-5.0 [facility] Comment on above: Performed By: #### L 501.2450, L501.5200, L500.3400, L700.6800, L500.2500, L501.6900, L503.6005, L100.0100 ####[facility] [address] [place], [address] ALK P 78 U/L Normal 45-117 [facility] Comment on above: Performed By: #### L 501.2450, L501.5200, L500.3400, L700.6800, L500.2500, L501.6900, L503.6005, L100.0100 ####[facility] [address] [place], [address] ALT [Catalytic activity/Vol] 15 U/L Normal 13-56 [facility] Comment on above: Performed By: #### L 501.2450, L501.5200, L500.3400, L700.6800, L500.2500, L501.6900, L503.6005, L100.0100 ####[facility] [address] [place], [address] AST [Catalytic activity/Vol] 13 U/L Low 15-37 [facility] Comment on above: Performed By: #### L 501.2450, L501.5200, L500.3400, L700.6800, L500.2500, L501.6900, L503.6005, L100.0100 ####[facility] [address] [place], [address] Bilirubin [Mass/Vol] 1.20 mg/dL High 0.20-1.00 [facility] Comment on above: Result Comment: For patients on eltrombopag therapy, use of Dimension Gregory TBIL is not recommended. Performed By: #### L 501.2450, L501.5200, L500.3400, L700.6800, L500.2500, L501.6900, L503.6005, L100.0100 ####[facility] [address] [place], [address] Bilirubin.direct [Mass/Vol] 0.38 mg/dL High 0.00-0.30 [facility] Comment on above: Performed By: #### L 501.2450, L501.5200, L500.3400, L700.6800, L500.2500, L501.6900, L503.6005, L100.0100 ####[facility] [address] [place], [address] Globulin (S) [Mass/Vol] 3.3 g/dL Normal 2.2-4.2 [facility] Comment on above: Performed By: #### L 501.2450, L501.5200, L500.3400, L700.6800, L500.2500, L501.6900, L503.6005, L100.0100 ####[facility] [address] [place], [address] T PROT 7.4 g/dL Normal 6.4-8.2 [facility] Comment on above: Performed By: #### L 501.2450, L501.5200, L500.3400, L700.6800, L500.2500, L501.6900, L503.6005, L100.0100 ####[facility] [address] [place], [address] Magnesiumon 08-02-2024 Magnesium [Mass/Vol] 2.5 mg/dL Normal 1.6-2.6 [facility] Comment on above: Performed By: #### L 501.2300, L501.5200 ####[facility] [address] [place], [address] Magnesium [Mass/Vol] 1.5 mg/dL Low 1.6-2.6 [facility] Comment on above: Performed By: #### L 501.2450, L501.5200, L500.3400, L700.6800, L500.2500, L501.6900, L503.6005, L100.0100 ####[facility] [address] [place], [address] Phosphoruson 08-02-2024 Phosphate [Mass/Vol] 2.2 mg/dL Low 2.5-4.9 [facility] Comment on above: Performed By: #### L 501.2300, L501.5200 ####[facility] [address] [place], [address] ,Serum,hCG Quali.on 08-02-2024 HCG, SERUM QUAL Negative Normal [facility] Comment on above: Performed By: #### L 501.2450, L501.5200, L500.3400, L700.6800, L500.2500, L501.6900, L503.6005, L100.0100 ####[facility] [address] [place], [address] Urinalysis, Completeon 08-02 BACTERIA 1+ /hpf Normal None Seen [facility] Comment on above: Order Comment: CLEAN CATCH Performed By: #### L 400.0001 ####[facility] [address] [place], [address] EPI,SQUAMOUS 0-5 SEEN Normal 5-10 [facility] Comment on above: Order Comment: CLEAN CATCH Performed By: #### L 400.0001 ####[facility] [address] [place], [address] WBC 0-5 SEEN Normal 0-5 [facility] Comment on above: Order Comment: CLEAN CATCH Performed By: #### L 400.0001 ####[facility] [address] [place], [address] Mucus Ql (Urine sed) 0 SEEN Normal [facility] Comment on above: Order Comment: CLEAN CATCH Performed By: #### L 400.0001 ####[facility] [address] [place], [address] RBC 0 SEEN Normal 0-5 [facility] Comment on above: Order Comment: CLEAN CATCH Performed By: #### L 400.0001 ####[facility] [address] [facility] [address] Urine Drug Screen (VISTA)on 08-02-2024 AMPHETAMINES Negative Normal <1000 ng/mL [facility] Comment on above: Performed By: #### L 505.5000 ####[facility] [address] [place], [address] BARBITIURATES Negative Normal < 200 ng/mL [facility] Comment on above: Performed By: #### L 505.5000 ####[facility] [address] [facility] [address] BENZODIAZIPINE Negative Normal < 200 ng/mL [facility] Comment on above: Performed By: #### L 505.5000 ####[facility] [address] [facility] [address] COCAINE Negative Normal < 300 ng/mL [facility] Comment on above: Performed By: #### L 505.5000 ####[facility] [address] [place] [id number] ECSTACY Negative Normal < 500 ng/mL [facility] Comment on above: Performed By: #### L 505.5000 ####[facility] [address] [place], [address] METHADONE Negative Normal < 300 ng/mL [facility] Comment on above: Performed By: #### L 505.5000 ####[facility] [address] [place], [address] OPIATES Negative Normal < 300 ng/mL [facility] Comment on above: Performed By: #### L 505.5000 ####[facility] [address] [place], [address] PCP Negative Normal < 25 ng/mL [facility] Comment on above: Performed By: #### L 505.5000 ####[facility] [address] [place], [address] THC Positive Abnormal < 50 ng/mL [facility] Comment on above: Performed By: #### L 505.5000 ####[facility] [address] [place], [address] VISTA UDS PH 5 Normal [facility] Comment on above: Performed By: #### L 505.5000 ####[facility] [address] [place], [address] Venous Blood Gason 4 Blood Gas Type ISABELLE Normal [facility] Comment on above: Performed By: #### L 9000.0810 ####[facility] [address] [place], [address] CO2 [Moles/Vol] 17 mmol/L Low 23-33 [facility] Comment on above: Performed By: #### L 9000.0810 ####[facility] [address] [place], [address] HCO3 (Bld) [Moles/Vol] 16 mmol/L Low 22-26 [facility] Comment on above: Performed By: #### L 9000.0810 ####[facility] [address] [place], [address] O2 Delivery Dev Room Air Normal [facility] Comment on above: Performed By: #### L 9000.0810 ####[facility] [address] [place], [address] SITE Not entered [facility] Comment on above: Performed By: #### L 9000.0810 ####[facility] [address] [place], [address] VBG BE -9 mmol/L Low -1.0-3.5 [facility] Comment on above: Performed By: #### L 9000.0810 ####[facility] [address] [place], [address] VBG pCO2 28.0 mmHg Low 41-51 [facility] Comment on above: Performed By: #### L 9000.0810 ####[facility] [address] [place], [address] VBG pH 7.38 Normal 7.32-7.42 [facility] Comment on above: Performed By: #### L 9000.0810 ####[facility] [address] [place], [address] VBG PO2 46 mmHg High 25-40 [facility] Comment on above: Performed By: #### L 9000.0810 ####[facility] [address] [place], [address] VBG SO2 82 High 50-70 [facility] Comment on above: Performed By: #### L 9000.0810 ####[facility] [address] [place], [address] Chest PA and Lateralon 12-05 -2024 Chest PA and Lateral Normal [facility] Emergency Department Summary on 08-01-2024 Emergency Department Summary Normal [facility] CNNURSEon 07-23-2024 CNNURSE Nurse Visit (ENDIMT) KATHLEEN VILLA ([id number]) 1995 F CHT Date Time Provider Department 07/23/24 9:00 AM VAMSI CARSON During your visit today, we recorded the following information about you: Vamsi Carson RN 07/23/2024 9:04 AM Signed DIABETES CARE AND EDUCATION VISIT Location: [place] Type of visit: In person individual PATIENT'S [...] TIME: 8:47 AM Referring Provider: KVNG LEWIS [[id number]] Allergies As of Date: 07/23/2024 Noted Allergy [...] Date Reviewed: 07/19/2024 Reviewed by: Jessica Guerrero APRN.GRAIN INSPECTOR - Fully Assessed Visit Diagnoses:Type 1 diabetes mellitus with hyperglycemia, with long-term current use of insulin ([facility]) [E10.65] Insulin pump status [Z96.41] Order(s):CONSULT TO DIABETES EDUCATION DSME [7550232] Order #: [id number]: 2 Prescriptions as of 07/23/2024 - Acetone, [...] Units subcutaneously every 24 hours. - Insulin [place], Disposable, (PEN NEEDLE) 32 gauge x 5/32 [...] (post-traumatic stress disorder) [F43.10] 12/25/2012 DVT prophylaxis [AXD4241] 12/25/2012 09/04/2013 DISPOSITION AND FOLLOW-UP [V999.01] 12/25/2012 09/04/2013 HTN (hypertension) [I10] Hypertension in , antepartum [O16.9] 09/19/2013 01/08/2014 GBS (group B Streptococcus mesa (more content not included)... Normal [facility] Dipak 07-19-2024 GIOVANA Telephone (QAMAR) DAISY,KATHLEEN L ([id number]) 1995 F CHT Date Time Provider Department 07/19/24 JESSICA GUERRERO During your visit today, we recorded the following information about you: Lisa Aguilar LPN 07/19/2024 3:45 PM Signed Jessica Guerrero APRN.FRIEDA Garrido Ma Pool She was able to get upgraded pump recently. I [place] [facility] and [employer] to start. She will need new supplies from [facility] including Guardian 4 CGM and supplies for [employer] 780 G. Jessica Guerrero APRN.GRAIN INSPECTOR Lisa Aguilar LPN 07/24/2024 2:00 PM Signed [...] Date Reviewed: 07/19/2024 Reviewed by: Jessica Guerrero APRN.GRAIN INSPECTOR - Fully Assessed Prescriptions as of 07/30/2024 [...] Units subcutaneously every 24 hours. 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 Normal [facility] C. trachomatis+N. gonorrhoea e DNA DANIEL+probe Ql (Unsp spec)on 07-10-2024 C. trachomatis rRNA DANIEL+probe Ql (Unsp spec) Negative Normal Negative for Chlamydia trachomatis by amplificaton [facility] Comment on above: Order Comment: Speci men Type: SWABOrdering Facility: [facility] Address: [address] [place] [address] Performed By: #### T RVAMP, 88588-0 ####[facility] [id number] [address] [place] N. gonorrhoeae rRNA DANIEL+probe Ql (Unsp spec) Negative Normal Negative for Neisseria gonorrhoeae by amplification [facility] Comment on above: Order Comment: Speci men Type: SWABOrdering Facility: [facility] Address: [address] [place] [address] Performed By: #### T RVAMP, 67022-8 ####[facility] [id number] [address] [place] CNOVon 07-10-2024 CNOV Office Visit (OBGYWM ) KATHLEEN VILLA ([id number]) 1995 F T Date Time Provider Department [...] L2 SAB0 IAB0 Ectopic0 Multiple0 Live Births2 Office Services Assistant History LMP: 11/26/2022 (Exact Date), Having periods Age at Menarche: 12 Age at First : Age at Menopause: Office Services Assistant History Comments: Sexual Activity: Yes; Male Contraception: [...] discussed with the Patient or Patient's Authorized Salt Cutter. As applicable, any other physician, advance practice provider, medical student, or other health professional student that will be observing or involved in the sensitive examination for educational or training purposes was discussed with the Patient or Authorized Salt Cutter. The Patient or Authorized Salt Cutter has agreed to proceed with the sensitive [...] external genitalia normal, normal Bartholin's glands, urethra, Stidham's glands, no vulvar lesions, no cervical lesions, good vaginal support, physiologic discharge present, normal appearing perineal body and perianal region BIMANUAL: uterus normal size, shape and consistency, no adnexal masses, and non-tender ASSESSMENT/PLAN: 1) Health maintenance:Bisexual Pap done with reflex H (more content not included)... Normal [facility] HCV RNA DANIEL+probe Qnon 07-10 HCV RNA DANIEL+probe Ql Not detected Normal Not detected [facility] Comment on above: Order Comment: Speci men Type: BLOOD SPECIMENOrdering Facility: [facility] Address: [address] [place] [address] Performed By: #### 1 1011-4 ####[facility] [id number] [place] [address] [place] HIGH RISK HUMAN PAPILLOMA DERECK (HPV), PCR FOR DETECTION AND GENOTYPINGon 07-10-2024 HPV 16 Ag Ql (Unsp spec) Not detected Normal Not detected [facility] Comment on above: Order Comment: Speci men Type: FLUID SPECIMENOrdering Facility: [facility] Address: [address] [place] [address] Performed By: #### H PVHRT ####[facility] [id number] [place] [address] [place] HPV 18 Ag Ql (Unsp spec) Not detected Normal Not detected [facility] Comment on above: Order Comment: Speci men Type: FLUID SPECIMENOrdering Facility: [facility] Address: [address] [place] [address] Performed By: #### H PVHRT ####[facility] [id number] [place] [address] [place] HPV 31+33+35+39+45+51+52+5 6+58+59+66+68 DNA DANIEL+probe Ql (Cvx) Not detected Normal Not detected [facility] Comment on above: Order Comment: Speci men Type: FLUID SPECIMENOrdering Facility: [facility] Address: [address] [place] [address] Result Comment: High Risk HPV Other Type includes HPV types 31, 33, 35, 39, 45, 51, 52, 56, 58, 59, 66 and 68. Performed By: #### H PVHRT ####[facility] [id number] [place] [address] [place] HIV 1+2 Ab IA Qlon HIV 1 and 2 Ab IA.rapid Nom (S/P/Bld) Normal [facility] Comment on above: Order Comment: Speci men Type: BLOOD SPECIMENOrdering Facility: [facility] Address: [address] [place] [address] Result Comment: Test not indicated. Performed By: #### 3 1201-7, 11148-3 ####[facility] [id number] [place] [address] [place] HIV 1+2 Ab+HIV1 p24 Ag IA Ql Non-Reactive Normal Nonreactive [facility] Comment on above: Order Comment: Speci men Type: BLOOD SPECIMENOrdering Facility: [facility] Address: [address] [place] [address] Performed By: #### 3 1201-7, 20233-8 ####[facility] [id number] [place] [address] [place] HIV immunoassay testing algorithm interpretation (S/P/Bld) [Interp] Normal [facility] Comment on above: Order Comment: Speci men Type: BLOOD SPECIMENOrdering Facility: [facility] Address: [address] [place] [address] Result Comment: No e vidence of HIV-1 or HIV-2 infection. Should recent infection be suspected, repeat testing may be considered 2-3 weeks after this draw. [place] Rev. Code 3701.243(E): This information has been [...] or diagnoses. Performed By: #### 3 1201-7, 50712-6 ####[facility] [id number] [place] [address] [place] PAP TESTon 07-10-2024 ADEQUACY Normal [facility] Comment on above: Order Comment: Speci men Type: FLUID SPECIMENOrdering Facility: [facility] Address: [address] [place] [address] Result Comment: Sati sfactory for interpretation. Limited cellularity. Performed By: #### L [id number] ####[facility] [id number] [place] [address] [place] CASE REPORT Normal [facility] Comment on above: Order Comment: Speci men Type: FLUID SPECIMENOrdering Facility: [facility] Address: [address] [place] [address] Result Comment: Gyne cologic Cytology Report Case: [id number] Authorizing Provider: Jason Paredes MD Collected: 07/10/2024 12:13 PM Ordering Location: OB/Gynecology Received: 07/10/2024 03:39 PM First Screen: Aramouni, Heather, CT, ASCP Specimen: Pap Test, ThinPrep, Cervix Performed By: #### L [id number] ####[facility] [id number] [place] [address] [place] CLINICAL HISTORY, CYTOLOGY, DERRICK WORKER Routine Exam Normal [facility] Comment on above: Order Comment: Speci men Type: FLUID SPECIMENOrdering Facility: [facility] Address: [address] [place] [address] Performed By: #### L [id number] ####[facility] [id number] [place] [address] [place] FINAL PERFORMING LAB Normal [facility] Comment on above: Order Comment: Speci men Type: FLUID SPECIMENOrdering Facility: [facility] Address: [address] [place] [address] Result Comment: Tech nical component, business services associate screening performed at [facility], [address] [place] [address] CLIA# [id number] Diagnostic interpretation performed at [facility], [address] [place] [address] CLIA# [id number] Local Operator: Brennen Holloway M.D. Performed By: #### L [id number] ####[facility] [id number] [place] [address] [place] INTERPRETATION, CYTOLOGY, DERRICK WORKER Normal [facility] Comment on above: Order Comment: Speci men Type: FLUID SPECIMENOrdering Facility: [facility] Address: [address] [place] [address] Result Comment: Nega tive for intraepithelial lesion or malignancy. Performed By: #### L SR9247 ####[facility] [id number] [place] [address] [place] LMP 06/04/2024 Normal [facility] Comment on above: Order Comment: Speci men Type: FLUID SPECIMENOrdering Facility: [facility] Address: [address] [place] [address] Performed By: #### L [id number] ####[facility] [id number] [place] [address] [place] PAP DISCLAIMER COMMENT The Pap Smear is a screening test for cervical cancer. False negative results occur with all screening tests, emphasizing the need for rescreening at recommended intervals, and clinical correlation. Normal [facility] Comment on above: Order Comment: Speci men Type: FLUID SPECIMENOrdering Facility: [facility] Address: [address] [place] [address] Performed By: #### L [id number] ####[facility] [id number] [place] [id number] [place] PAP OFFSET PLATE MAKER COMMENT This specimen has be en analyzed by the ThinPrep Imaging System, an automated imaging and review system, which assists the laboratory in evaluating cells on ThinPrep Pap tests. Following automated imaging, selected cazares from every slide are reviewed by a business services associate. Normal [facility] Comment on above: Order Comment: Speci men Type: FLUID SPECIMENOrdering Facility: [facility] Address: [address] [place] [address] Performed By: #### L [id number] ####[facility] [id number] [place] [id number] [place] Reagin and Treponema pallidu m IgG and IgM [Interp]on 07-10-2024 T. pallidum IgG+IgM IA Ql (S) Non-Reactive Normal Nonreactive [facility] Comment on above: Order Comment: Speci men Type: BLOOD SPECIMENOrdering Facility: [facility] Address: [address] [place] [address] Performed By: #### 3 1201-7, 51351-1 ####[facility] [id number] [place] [address] [place] Reagin+T pallidum IgG+IgM Se rPl-Impon 07-10-2024 Reagin and Treponema pallidum IgG and IgM [Interp] Cannot exclude recent Treponemal infection if specimen collected within 7-10 days after appearance of suspect lesions or 2-3 weeks after an exposure. Clinical correlation is required. Normal [facility] Comment on above: Order Comment: Speci men Type: BLOOD SPECIMENOrdering Facility: [facility] Address: [address] [place] [address] Performed By: #### 3 1201-7, 18120-1 ####[facility] [id number] [place] [address] [place] TRICHOMONAS VAGINALIS NAATon 07-10-2024 T. vaginalis DNA DANIEL+probe Ql (Unsp spec) Negative Normal Negative for Trichomonas vaginalis by amplification [facility] Comment on above: Order Comment: Speci men Type: SWABOrdering Facility: [facility] Address: [address] [place] [address] Performed By: #### T RVAMP, 82651-6 ####[facility] [id number] [place] [address] [place] TSH SerPl-aCncon 07-10-2024 TSH Qn 1.140 m[IU]/L Normal 0.270-4.200 [facility] Comment on above: Order Comment: Speci men Type: BLOOD SPECIMENOrdering Facility: [facility] Address: [address] [place] [id number] Result Comment: If t he patient is , TSH reference range varies by gestational period: First Trimester (weeks 9-12): 0.180-2.990 mIU/L Second Trimester: 0.110-3.980 mIU/L Third Trimester: 0.480-4.710 mIU/L Kelvin Swain et al. A Practical Approach for the Verifications and Determination of Site- and Trimester-Specific Reference Intervals for Thyroid Function tests in . Thyroid, 2019:29:3:412-420. Dangelo Raya, et al. 2017 Guidelines of the [employer] Thyroid [employer] for the Diagnosis and Management of Thyroid Disease during and the . Thyroid, 2017:27:3:315-389. Performed By: #### 3 016-3 ####[facility] [id number] [facility] [id number] [place], [place] [id number] [facility] CNPN Telephone (INTMIN) KATHLEEN VILLA ([id number]) 1995 F T Date Time Provider Department [...] Insulin Lispro. [facility] Discussed with provider in office Please advise Jessica Guerrero APRN.FRIEDA 06/25/2024 1:58 PM Signed I recommend she sees transmission worker to review pump options- I am fine [...] to patient via phone. Patient verbalizes understanding. [employer] message sent for patients reference as requested. [...] every 24 hours.Disp: 38.7 mLRfl: 1 Insulin [place], Disposable, (PEN NEEDLE) 32 gauge x 5/32Inject [...] Units subcutaneously every 24 hours. - Insulin [place], Disposable, (PEN NEEDLE) 32 gauge x 5/32 [...] TEST STRIPS) (more content not included)... Normal [facility] CNPNon 06-17-2024 FRIEDAN Telephone (ASHLEYIN) KATHLEEN VILLA ([id number]) 1995 F CHT Date Time Provider Department 06/17/24 KVNG LEWIS During your visit today, we recorded the following information about you: Nichole Quinteros 06/17/2024 3:16 PM Signed Patient has been identified by name and date of : Yes Type of form: [facility] Medication Reconciliation Post Discharge V2 Form received [...] (post-traumatic stress disorder) [F43.10] 12/25/2012 DVT prophylaxis [TXP2764] 12/25/2012 09/04/2013 DISPOSITION AND FOLLOW-UP [V999.01] 12/25/2012 09/04/2013 HTN (hypertension) [I10] Hypertension in , antepartum [O16.9] 09/19/2013 01/08/2014 GBS (group B Streptococcus carrier), +RV cultur*11/11/2013 04/16/2014 [Z34.90] 11/22/2013 04/16/2014 Diabetes mellitus in (HCC) [O24.919] 12/25/2013 04/16/2014 Diabetic ketoacidosis without coma associated w*01/08/2014 02/04/2023 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 Normal [facility] Comment on above: Performed By: #### M 200.1000 ####[facility] [address] [place], [address] Basic Metabolic Profile (BMP )on 06-11-2024 BUN/CRE 9.8 RATIO Low 10-20 [facility] Comment on above: Performed By: #### L 500.2500 ####[facility] [address] [place], [address] CA,Total 8.7 mg/dL Normal 8.5-10.1 [facility] Comment on above: Performed By: #### L 500.2500 ####[facility] [address] [place], [address] Chloride [Moles/Vol] 107 mmol/L Normal 98-107 [facility] Comment on above: Performed By: #### L 500.2500 ####[facility] [address] [place], [address] CO2 [Moles/Vol] 27.0 mmol/L Normal 21.0-32.0 [facility] Comment on above: Performed By: #### L 500.2500 ####[facility] [address] [place], [address] Creatinine [Mass/Vol] 0.82 mg/dL Normal 0.55-1.02 [facility] Comment on above: Result Comment: The validity of the calculated GFR GFRAA in patients over70 years has not been determined. Clinical correlation isessential. Performed By: #### L 500.2500 ####[facility] [address] [place], [address] ECRCL 105.79 ml/min Normal [facility] Comment on above: Performed By: #### L 500.2500 ####[facility] [address] [place], [address] EST GFR - AA 106 mL/min Normal >60 [facility] Comment on above: Result Comment: Afri can Indian GFR Calc Performed By: #### L 500.2500 ####[facility] [address] [place], [address] GAP 6 Normal 5-15 [facility] Comment on above: Performed By: #### L 500.2500 ####[facility] [address] [place], [address] GFR/1.73 sq M.predicted among non-blacks MDRD (S/P/Bld) [Vol rate/Area] 87 mL/min/{1.73_m2} Normal >60 [facility] Comment on above: Result Comment: Non- GFR Calc Performed By: #### L 500.2500 ####[facility] [address] [place], [address] Glucose [Mass/Vol] 194 mg/dL High 74-106 [facility] Comment on above: Result Comment: Fast ing Glucose result greater than or equal to 126 mg/dLsuggests DIABETES MELLITUS per A.D.A. criteria. Performed By: #### L 500.2500 ####[facility] [address] [place], [address] Potassium [Moles/Vol] 3.3 mmol/L Low 3.5-5.1 [facility] Comment on above: Performed By: #### L 500.2500 ####[facility] [address] [place], [address] Sodium [Moles/Vol] 140 mmol/L Normal 136-145 [facility] Comment on above: Performed By: #### L 500.2500 ####[facility] [address] [place], [address] Urea nitrogen [Mass/Vol] 8 mg/dL Normal 7-18 [facility] Comment on above: Performed By: #### L 500.2500 ####[facility] [address] [place], [address] Bedside Glucoseon 06-11-2024 FINGERSTICK GLU 116 mg/dL High 74-106 [facility] Comment on above: Result Comment: Dr Ej foreman FollowedMANAGEMENT OF PATIENT CARE PER NURSING PROTOCOL Performed By: #### L 501.080 ####[facility] [address] [place], [address] FINGERSTICK GLU 180 mg/dL High 74-106 [facility] Comment on above: Result Comment: EDGAR HUNG OF PATIENT CARE PER NURSING PROTOCOL Performed By: #### L 501.080 ####[facility] [address] [place], [address] Discharge Instructionon 05-28 Discharge Instruction Normal [facility] Acetone Serumon 06-10-2024 ACETONE SERUM Negative Normal NEG [facility] Comment on above: Performed By: #### L 501.6900 ####[facility] [address] [place], [address] Basic Metabolic Profile (BMP )on 06-10-2024 BUN Normal 7-18 [facility] Comment on above: Result Comment: Canc elled via OM: MD Ordered Performed By: #### L 500.2500 ####[facility] [address] [place], [address] BUN/CRE Normal 10-20 [facility] Comment on above: Result Comment: Canc elled via OM: MD Ordered Performed By: #### L 500.2500 ####[facility] [address] [place], [address] CA,Total Normal 8.5-10.1 [facility] Comment on above: Result Comment: Canc elled via OM: MD Ordered Performed By: #### L 500.2500 ####[facility] [address] [place], [address] CL Normal 98-107 [facility] Comment on above: Result Comment: Canc elled via OM: MD Ordered Performed By: #### L 500.2500 ####[facility] [address] [place], [address] CO2 Normal 21.0-32.0 [facility] Comment on above: Result Comment: Canc elled via OM: MD Ordered Performed By: #### L 500.2500 ####[facility] [address] [place], [address] CREAT,SERUM Normal 0.55-1.02 [facility] Comment on above: Result Comment: Canc elled via OM: MD Ordered Performed By: #### L 500.2500 ####[facility] [address] [place], [address] EST GFR Normal >60 [facility] Comment on above: Result Comment: Canc elled via OM: MD Ordered Performed By: #### L 500.2500 ####[facility] [address] [place], [address] EST GFR - AA Normal >60 [facility] Comment on above: Result Comment: Canc elled via OM: MD Ordered Performed By: #### L 500.2500 ####[facility] [address] [place], [address] GAP Normal 5-15 [facility] Comment on above: Result Comment: Canc elled via OM: MD Ordered Performed By: #### L 500.2500 ####[facility] [address] [place], [address] GLU Normal 74-106 [facility] Comment on above: Result Comment: Canc elled via OM: MD Ordered Performed By: #### L 500.2500 ####[facility] [address] [place], [address] Potassium Normal 3.5-5.1 [facility] Comment on above: Result Comment: Canc elled via OM: MD Ordered Performed By: #### L 500.2500 ####[facility] [address] [place], [address] Basic Metabolic Profile (BMP) Normal 136-145 [facility] Comment on above: Result Comment: Mary elled via OM: MD Ordered Performed By: #### L 500.2500 ####[facility] [address] [place], [address] BUN/CRE 9.8 RATIO Low 10-20 [facility] Comment on above: Performed By: #### L 500.2500 ####[facility] [address] [place], [address] CA,Total 7.9 mg/dL Low 8.5-10.1 [facility] Comment on above: Performed By: #### L 500.2500 ####[facility] [address] [place], [address] Chloride [Moles/Vol] 107 mmol/L Normal 98-107 [facility] Comment on above: Performed By: #### L 500.2500 ####[facility] [address] [place], [address] CO2 [Moles/Vol] 25.0 mmol/L Normal 21.0-32.0 [facility] Comment on above: Performed By: #### L 500.2500 ####[facility] [address] [place], [address] Creatinine [Mass/Vol] 0.61 mg/dL Normal 0.55-1.02 [facility] Comment on above: Result Comment: The validity of the calculated GFR GFRAA in patients over70 years has not been determined. Clinical correlation isessential. Performed By: #### L 500.2500 ####[facility] [address] [place], [address] ECRCL 142.21 ml/min Normal [facility] Comment on above: Performed By: #### L 500.2500 ####[facility] [address] [place], [address] EST GFR - AA 148 mL/min Normal >60 [facility] Comment on above: Result Comment: Afri can Indian GFR Calc Performed By: #### L 500.2500 ####[facility] [address] [place], [address] GAP 10 Normal 5-15 [facility] Comment on above: Performed By: #### L 500.2500 ####[facility] [address] [place], [address] GFR/1.73 sq M.predicted among non-blacks MDRD (S/P/Bld) [Vol rate/Area] 123 mL/min/{1.73_m2} Normal >60 [facility] Comment on above: Result Comment: Non- GFR Calc Performed By: #### L 500.2500 ####[facility] [address] [place], [address] Glucose [Mass/Vol] 89 mg/dL Normal 74-106 [facility] Comment on above: Performed By: #### L 500.2500 ####[facility] [address] [place], [address] Potassium [Moles/Vol] 3.0 mmol/L Low 3.5-5.1 [facility] Comment on above: Performed By: #### L 500.2500 ####[facility] [address] [place], [address] Sodium [Moles/Vol] 141 mmol/L Normal 136-145 [facility] Comment on above: Performed By: #### L 500.2500 ####[facility] [address] [place], [address] Urea nitrogen [Mass/Vol] 6 mg/dL Low 7-18 [facility] Comment on above: Performed By: #### L 500.2500 ####[facility] [address] [place], [address] BUN/CRE 11.2 RATIO Normal 10-20 [facility] Comment on above: Performed By: #### L 501.2300, L100.0100, L500.2500, L501.5200 ####[facility] [address] [place], [address] CA,Total 8.0 mg/dL Low 8.5-10.1 [facility] Comment on above: Performed By: #### L 501.2300, L100.0100, L500.2500, L501.5200 ####[facility] [address] [place], [address] Chloride [Moles/Vol] 107 mmol/L Normal 98-107 [facility] Comment on above: Performed By: #### L 501.2300, L100.0100, L500.2500, L501.5200 ####[facility] [address] [place], [address] CO2 [Moles/Vol] 24.0 mmol/L Normal 21.0-32.0 [facility] Comment on above: Performed By: #### L 501.2300, L100.0100, L500.2500, L501.5200 ####[facility] [address] [place], [address] Creatinine [Mass/Vol] 0.63 mg/dL Normal 0.55-1.02 [facility] Comment on above: Result Comment: The validity of the calculated GFR GFRAA in patients over70 years has not been determined. Clinical correlation isessential. Performed By: #### L 501.2300, L100.0100, L500.2500, L501.5200 ####[facility] [address] [place], [address] ECRCL 137.70 ml/min Normal [facility] Comment on above: Performed By: #### L 501.2300, L100.0100, L500.2500, L501.5200 ####[facility] [address] [place], [address] EST GFR - AA 144 mL/min Normal >60 [facility] Comment on above: Result Comment: Afri can Indian GFR Calc Performed By: #### L 501.2300, L100.0100, L500.2500, L501.5200 ####[facility] [address] [place], [address] GAP 7 Normal 5-15 [facility] Comment on above: Performed By: #### L 501.2300, L100.0100, L500.2500, L501.5200 ####[facility] [address] [place], [address] GFR/1.73 sq M.predicted among non-blacks MDRD (S/P/Bld) [Vol rate/Area] 119 mL/min/{1.73_m2} Normal >60 [facility] Comment on above: Result Comment: Non- GFR Calc Performed By: #### L 501.2300, L100.0100, L500.2500, L501.5200 ####[facility] [address] [place], [address] Glucose [Mass/Vol] 127 mg/dL High 74-106 [facility] Comment on above: Result Comment: Fast ing Glucose result greater than or equal to 126 mg/dLsuggests DIABETES MELLITUS per A.D.A. criteria. Performed By: #### L 501.2300, L100.0100, L500.2500, L501.5200 ####[facility] [address] [place], [address] Potassium [Moles/Vol] 3.7 mmol/L Normal 3.5-5.1 [facility] Comment on above: Performed By: #### L 501.2300, L100.0100, L500.2500, L501.5200 ####[facility] [address] [place], [address] Sodium [Moles/Vol] 138 mmol/L Normal 136-145 [facility] Comment on above: Performed By: #### L 501.2300, L100.0100, L500.2500, L501.5200 ####[facility] [address] [place], [address] Urea nitrogen [Mass/Vol] 7 mg/dL Normal 7-18 [facility] Comment on above: Performed By: #### L 501.2300, L100.0100, L500.2500, L501.5200 ####[facility] [address] [place], [address] BUN/CRE 11.2 RATIO Normal 10-20 [facility] Comment on above: Performed By: #### L 500.2500 ####[facility] [address] [place], [address] CA,Total 7.9 mg/dL Low 8.5-10.1 [facility] Comment on above: Performed By: #### L 500.2500 ####[facility] [address] [place], [address] Chloride [Moles/Vol] 107 mmol/L Normal 98-107 [facility] Comment on above: Performed By: #### L 500.2500 ####[facility] [address] [place], [address] CO2 [Moles/Vol] 25.0 mmol/L Normal 21.0-32.0 [facility] Comment on above: Performed By: #### L 500.2500 ####[facility] [address] [place], [address] Creatinine [Mass/Vol] 0.81 mg/dL Normal 0.55-1.02 [facility] Comment on above: Result Comment: The validity of the calculated GFR GFRAA in patients over70 years has not been determined. Clinical correlation isessential. Performed By: #### L 500.2500 ####[facility] [address] [place], [address] ECRCL 107.10 ml/min Normal [facility] Comment on above: Performed By: #### L 500.2500 ####[facility] [address] [place], [address] EST GFR - AA 108 mL/min Normal >60 [facility] Comment on above: Result Comment: Afri can Indian GFR Calc Performed By: #### L 500.2500 ####[facility] [address] [place], [address] GAP 7 Normal 5-15 [facility] Comment on above: Performed By: #### L 500.2500 ####[facility] [address] [place], [address] GFR/1.73 sq M.predicted among non-blacks MDRD (S/P/Bld) [Vol rate/Area] 89 mL/min/{1.73_m2} Normal >60 [facility] Comment on above: Result Comment: Non- GFR Calc Performed By: #### L 500.2500 ####[facility] [address] [place], [address] Glucose [Mass/Vol] 185 mg/dL High 74-106 [facility] Comment on above: Result Comment: Fast ing Glucose result greater than or equal to 126 mg/dLsuggests DIABETES MELLITUS per A.D.A. criteria. Performed By: #### L 500.2500 ####[facility] [address] [place], [address] Potassium [Moles/Vol] 2.9 mmol/L Low 3.5-5.1 [facility] Comment on above: Performed By: #### L 500.2500 ####[facility] [address] [place], [address] Sodium [Moles/Vol] 140 mmol/L Normal 136-145 [facility] Comment on above: Performed By: #### L 500.2500 ####[facility] [address] [place], [address] Urea nitrogen [Mass/Vol] 9 mg/dL Normal 7-18 [facility] Comment on above: Performed By: #### L 500.2500 ####[facility] [address] [place], [address] Bedside Glucoseon 06-10-2024 FINGERSTICK GLU 122 mg/dL High 74-106 [facility] Comment on above: Result Comment: EDGAR GEMENT OF PATIENT CARE PER NURSING PROTOCOL Performed By: #### L 501.080 ####[facility] [address] [place], [address] FINGERSTICK GLU 120 mg/dL High 74-106 [facility] Comment on above: Result Comment: EDGAR GEMENT OF PATIENT CARE PER NURSING PROTOCOL Performed By: #### L 501.080 ####[facility] [address] [place], [address] FINGERSTICK GLU 158 mg/dL High 74-106 [facility] Comment on above: Result Comment: EDGAR GEMENT OF PATIENT CARE PER NURSING PROTOCOL Performed By: #### L 501.080 ####[facility] [address] [place], [address] FINGERSTICK GLU 93 mg/dL Normal 74-106 [facility] Comment on above: Result Comment: EDGAR GEMENT OF PATIENT CARE PER NURSING PROTOCOL Performed By: #### L 501.080 ####[facility] [address] [place], [address] FINGERSTICK GLU 85 mg/dL Normal 74-106 [facility] Comment on above: Result Comment: EDGAR GEMENT OF PATIENT CARE PER NURSING PROTOCOL Performed By: #### L 501.080 ####[facility] [address] [place], [address] FINGERSTICK GLU 67 mg/dL Low 74-106 [facility] Comment on above: Result Comment: EDGAR GEMENT OF PATIENT CARE PER NURSING PROTOCOL Performed By: #### L 501.080 ####[facility] [address] [place], [address] FINGERSTICK GLU 64 mg/dL Low 74-106 [facility] Comment on above: Result Comment: EDGAR GEMENT OF PATIENT CARE PER NURSING PROTOCOL Performed By: #### L 501.080 ####[facility] [address], [address] FINGERSTICK GLU 74 mg/dL Normal 74-106 [facility] Comment on above: Result Comment: EDGAR GEMENT OF PATIENT CARE PER NURSING PROTOCOL Performed By: #### L 501.080 ####[facility] [address] [place], [address] FINGERSTICK GLU 124 mg/dL High 74-106 [facility] Comment on above: Result Comment: EDGAR GEMENT OF PATIENT CARE PER NURSING PROTOCOL Performed By: #### L 501.080 ####[facility] [address] [place], [address] FINGERSTICK GLU 146 mg/dL High 74-106 [facility] Comment on above: Result Comment: EDGAR GEMENT OF PATIENT CARE PER NURSING PROTOCOL Performed By: #### L 501.080 ####[facility] [address] [place], [address] FINGERSTICK GLU 122 mg/dL High 74-106 [facility] Comment on above: Result Comment: EDGAR GEMENT OF PATIENT CARE PER NURSING PROTOCOL Performed By: #### L 501.080 ####[facility] [address] [place], [address] FINGERSTICK GLU 286 mg/dL High 74-106 [facility] Comment on above: Result Comment: EDGAR GEMENT OF PATIENT CARE PER NURSING PROTOCOL Performed By: #### L 501.080 ####[facility] [address] [place], [address] FINGERSTICK GLU 233 mg/dL High 74-106 [facility] Comment on above: Result Comment: EDGAR GEMENT OF PATIENT CARE PER NURSING PROTOCOL Performed By: #### L 501.080 ####[facility] [address] [place], [address] FINGERSTICK GLU 194 mg/dL High -106 [facility] Comment on above: Result Comment: EDGAR GEMENT OF PATIENT CARE PER NURSING PROTOCOL Performed By: #### L 501.080 ####[facility] [address] [place], [address] FINGERSTICK GLU 195 mg/dL High 74-106 [facility] Comment on above: Result Comment: EDGAR GEMENT OF PATIENT CARE PER NURSING PROTOCOL Performed By: #### L 501.080 ####[facility] [address] [place], [address] CBC W/Diff, Automatedon 10-1 Absolute Lymph 2.08 X10 3/uL Normal 0.83-4.51 [facility] Comment on above: Performed By: #### L 501.2300, L100.0100, L500.2500, L501.5200 ####[facility] [address] [place], [address] Absolute Neut 11.6 X10 3/uL High 2.0-7.7 [facility] Comment on above: Performed By: #### L 501.2300, L100.0100, L500.2500, L501.5200 ####[facility] [address] [place], [address] Basophils/100 WBC (Bld) 0.3 % Normal 0-1 [facility] Comment on above: Performed By: #### L 501.2300, L100.0100, L500.2500, L501.5200 ####[facility] [address] [place], [address] Eosinophils/100 WBC (Bld) 0.1 % Normal 0-5 [facility] Comment on above: Performed By: #### L 501.2300, L100.0100, L500.2500, L501.5200 ####[facility] [address] [place], [address] Erythrocyte distribution width (RBC) [Ratio] 12.6 % Normal 11.6-14.6 [facility] Comment on above: Performed By: #### L 501.2300, L100.0100, L500.2500, L501.5200 ####[facility] [address] [place], [address] Hematocrit (Bld) [Volume fraction] 36.7 % Low 37-47 [facility] Comment on above: Performed By: #### L 501.2300, L100.0100, L500.2500, L501.5200 ####[facility] [address] [place], [address] Hemoglobin (Bld) [Mass/Vol] 12.2 g/dL Normal 12.0-15.0 [facility] Comment on above: Performed By: #### L 501.2300, L100.0100, L500.2500, L501.5200 ####[facility] [address] [place], [address] IG% 1.100 High 0.0-0.9 [facility] Comment on above: Result Comment: IG% - Immature Granulocytes (promyelocytes, myelocytes andmetamyelocytes) > 1% indicates that a LEFT SHIFT is Present. Performed By: #### L 501.2300, L100.0100, L500.2500, L501.5200 ####[facility] [address] [place], [address] Lymphocytes/100 WBC (Bld) 14.1 % Low 19-41 [facility] Comment on above: Performed By: #### L 501.2300, L100.0100, L500.2500, L501.5200 ####[facility] [address] [place], [address] MCH (RBC) [Entitic mass] 29.5 pg Normal 27.0-32.0 [facility] Comment on above: Performed By: #### L 501.2300, L100.0100, L500.2500, L501.5200 ####[facility] [address] [place], [address] MCHC (RBC) [Mass/Vol] 33.2 g/dL Normal 32-36 [facility] Comment on above: Performed By: #### L 501.2300, L100.0100, L500.2500, L501.5200 ####[facility] [address] [place], [address] MCV (RBC) [Entitic vol] 88.9 fL Normal 81-99 [facility] Comment on above: Performed By: #### L 501.2300, L100.0100, L500.2500, L501.5200 ####[facility] [address] [place], [address] Monocytes/100 WBC (Bld) 5.9 % Normal 0-10 [facility] Comment on above: Performed By: #### L 501.2300, L100.0100, L500.2500, L501.5200 ####[facility] [address] [place], [address] Neutrophils/100 WBC (Bld) 78.5 % High 47-70 [facility] Comment on above: Performed By: #### L 501.2300, L100.0100, L500.2500, L501.5200 ####[facility] [address] [place], [address] Nucleated RBC (Bld) [#/Vol] 0 10*3/uL Normal 0-5 [facility] Comment on above: Performed By: #### L 501.2300, L100.0100, L500.2500, L501.5200 ####[facility] [address] [place], [address] Platelet mean volume (Bld) [Entitic vol] 11.8 fL Normal 6.2-12.0 [facility] Comment on above: Performed By: #### L 501.2300, L100.0100, L500.2500, L501.5200 ####[facility] [address] [place], [address] Platelets (Bld) [#/Vol] 187 10*3/uL Normal 150-450 [facility] Comment on above: Performed By: #### L 501.2300, L100.0100, L500.2500, L501.5200 ####[facility] [address] [place], [address] RBC (Bld) [#/Vol] 4.13 10*6/uL Low 4.2-5.4 [facility] Comment on above: Performed By: #### L 501.2300, L100.0100, L500.2500, L501.5200 ####[facility] [address] [place], [address] RDW SD 41.1 fl Normal 35.1-43.9 [facility] Comment on above: Performed By: #### L 501.2300, L100.0100, L500.2500, L501.5200 ####[facility] [address] [place], [address] WBC (Bld) [#/Vol] 14.8 10*3/uL High 4.4-11.0 [facility] Comment on above: Performed By: #### L 501.2300, L100.0100, L500.2500, L501.5200 ####[facility] [address] [place], [address] Magnesiumon 06-10-2024 Magnesium [Mass/Vol] 2.2 mg/dL Normal 1.6-2.6 [facility] Comment on above: Performed By: #### L 501.2300, L100.0100, L500.2500, L501.5200 ####[facility] [address] [place], [address] Phosphoruson 06-10-2024 Phosphate [Mass/Vol] 2.3 mg/dL Low 2.5-4.9 [facility] Comment on above: Performed By: #### L 501.2300 ####[facility] [address] [place], [address] Phosphate [Mass/Vol] 1.8 mg/dL Low 2.5-4.9 [facility] Comment on above: Performed By: #### L 501.2300, L100.0100, L500.2500, L501.5200 ####[facility] [address] [place], [address] Acetone Serumon 06-09-2024 ACETONE SERUM LARGE Abnormal NEG [facility] Comment on above: Performed By: #### L 501.6900 ####[facility] [address] [place], [address] Basic Metabolic Profile (BMP )on 06-09-2024 BUN/CRE 12.1 RATIO Normal 10-20 [facility] Comment on above: Performed By: #### L 500.2500 ####[facility] [address] [place], [address] CA,Total 8.0 mg/dL Low 8.5-10.1 [facility] Comment on above: Performed By: #### L 500.2500 ####[facility] [address] [place], [address] Chloride [Moles/Vol] 103 mmol/L Normal 98-107 [facility] Comment on above: Performed By: #### L 500.2500 ####[facility] [address] [place], [address] CO2 [Moles/Vol] 21.0 mmol/L Normal 21.0-32.0 [facility] Comment on above: Performed By: #### L 500.2500 ####[facility] [address] [place], [address] Creatinine [Mass/Vol] 0.74 mg/dL Normal 0.55-1.02 [facility] Comment on above: Result Comment: The validity of the calculated GFR GFRAA in patients over70 years has not been determined. Clinical correlation isessential. Performed By: #### L 500.2500 ####[facility] [address] [place], [address] ECRCL 117.23 ml/min Normal [facility] Comment on above: Performed By: #### L 500.2500 ####[facility] [address] [place], [address] EST GFR - AA 118 mL/min Normal >60 [facility] Comment on above: Result Comment: Afri can Indian GFR Calc Performed By: #### L 500.2500 ####[facility] [address] [place], [address] GAP 12 Normal 5-15 [facility] Comment on above: Performed By: #### L 500.2500 ####[facility] [address] [place], [address] GFR/1.73 sq M.predicted among non-blacks MDRD (S/P/Bld) [Vol rate/Area] 98 mL/min/{1.73_m2} Normal >60 [facility] Comment on above: Result Comment: Non- GFR Calc Performed By: #### L 500.2500 ####[facility] [address] [place], [address] Glucose [Mass/Vol] 351 mg/dL High 74-106 [facility] Comment on above: Result Comment: Gluc ose result greater than or equal to 200 mg/dLsuggests DIABETES MELLITUS per A.D.A. criteria. Performed By: #### L 500.2500 ####[facility] [address] [place], [address] Potassium [Moles/Vol] 3.4 mmol/L Low 3.5-5.1 [facility] Comment on above: Performed By: #### L 500.2500 ####[facility] [address] [place], [address] Sodium [Moles/Vol] 136 mmol/L Normal 136-145 [facility] Comment on above: Performed By: #### L 500.2500 ####[facility] [address] [place], [address] Urea nitrogen [Mass/Vol] 9 mg/dL Normal 7-18 [facility] Comment on above: Performed By: #### L 500.2500 ####[facility] [address] [place], [address] BUN Normal 7-18 [facility] Comment on above: Result Comment: Mary sanchez via OM: Ordered Performed By: #### L 500.2500 ####[facility] [address] [place], [address] Order Comment: Call MD with results STAT BUN/CRE Normal 10-20 [facility] Comment on above: Result Comment: Canc elled via OM: MD Ordered Performed By: #### L 500.2500 ####[facility] [address] [place], [address] Order Comment: Call MD with results STAT CA,Total Normal 8.5-10.1 [facility] Comment on above: Result Comment: Canc elled via OM: MD Ordered Performed By: #### L 500.2500 ####[facility] [address] [place], [address] Order Comment: Call MD with results STAT CL Normal 98-107 [facility] Comment on above: Result Comment: Canc elled via OM: MD Ordered Performed By: #### L 500.2500 ####[facility] [address] [place] [address] Order Comment: Call MD with results STAT CO2 Normal 21.0-32.0 [facility] Comment on above: Result Comment: Canc elled via OM: MD Ordered Performed By: #### L 500.2500 ####[facility] [address] [place] [id number] Order Comment: Call MD with results STAT CREAT,SERUM Normal 0.55-1.02 [facility] Comment on above: Result Comment: Canc elled via OM: MD Ordered Performed By: #### L 500.2500 ####[facility] [address] [place] [address] Order Comment: Call MD with results STAT EST GFR Normal >60 [facility] Comment on above: Result Comment: Canc elled via OM: MD Ordered Performed By: #### L 500.2500 ####[facility] [address] [place] [address] Order Comment: Call MD with results STAT EST GFR - AA Normal >60 [facility] Comment on above: Result Comment: Canc elled via OM: MD Ordered Performed By: #### L 500.2500 ####[facility] [address] [place], [address] Order Comment: Call MD with results STAT GAP Normal 5-15 [facility] Comment on above: Result Comment: Canc elled via OM: MD Ordered Performed By: #### L 500.2500 ####[facility] [address] [place], [address] Order Comment: Call MD with results STAT GLU Normal 74-106 [facility] Comment on above: Result Comment: Canc elled via OM: MD Ordered Performed By: #### L 500.2500 ####[facility] [address] [place], [address] Order Comment: Call MD with results STAT Potassium Normal 3.5-5.1 [facility] Comment on above: Result Comment: Canc elled via OM: MD Ordered Performed By: #### L 500.2500 ####[facility] [address] [place], [address] Order Comment: Call MD with results STAT Basic Metabolic Profile (BMP) Normal 136-145 [facility] Comment on above: Result Comment: Can elled via OM: MD Ordered Performed By: #### L 500.2500 ####[facility] [address] [place], [address] Order Comment: Call MD with results STAT BUN Normal 7-18 [facility] Comment on above: Order Comment: Call MD with results STAT Result Comment: NOT COLLECTED. Performed By: #### L 500.2500 ####[facility] [address] [place], [address] BUN/CRE Normal 10-20 [facility] Comment on above: Order Comment: Call MD with results STAT Result Comment: NOT COLLECTED. Performed By: #### L 500.2500 ####[facility] [address] [place], [address] CA,Total Normal 8.5-10.1 [facility] Comment on above: Order Comment: Call MD with results STAT Result Comment: NOT COLLECTED. Performed By: #### L 500.2500 ####[facility] [address] [place], [address] CL Normal 98-107 [facility] Comment on above: Order Comment: Call MD with results STAT Result Comment: NOT COLLECTED. Performed By: #### L 500.2500 ####[facility] [address] [place], [address] CO2 Normal 21.0-32.0 [facility] Comment on above: Order Comment: Call MD with results STAT Result Comment: NOT COLLECTED. Performed By: #### L 500.2500 ####[facility] [address] [place], [address] CREAT,SERUM Normal 0.55-1.02 [facility] Comment on above: Order Comment: Call MD with results STAT Result Comment: NOT COLLECTED. Performed By: #### L 500.2500 ####[facility] [address] [place], [address] EST GFR Normal >60 [facility] Comment on above: Order Comment: Call MD with results STAT Result Comment: NOT COLLECTED. Performed By: #### L 500.2500 ####[facility] [address] [place], [address] EST GFR - AA Normal >60 [facility] Comment on above: Order Comment: Call MD with results STAT Result Comment: NOT COLLECTED. Performed By: #### L 500.2500 ####[facility] [address] [place], [address] GAP Normal 5-15 [facility] Comment on above: Order Comment: Call MD with results STAT Result Comment: NOT COLLECTED. Performed By: #### L 500.2500 ####[facility] [address] [place], [address] GLU Normal 74-106 [facility] Comment on above: Order Comment: Call MD with results STAT Result Comment: NOT COLLECTED. Performed By: #### L 500.2500 ####[facility] [address] [place], [address] Potassium Normal 3.5-5.1 [facility] Comment on above: Order Comment: Call MD with results STAT Result Comment: NOT COLLECTED. Performed By: #### L 500.2500 ####[facility] [address] [place], [address] Basic Metabolic Profile (BMP) Normal 136-145 [facility] Comment on above: Order Comment: Call MD with results STAT Result Comment: NOT COLLECTED. Performed By: #### L 500.2500 ####[facility] [address] [place], [address] Bedside Glucoseon 06-09-2024 FINGERSTICK GLU 322 mg/dL High 74-106 [facility] Comment on above: Result Comment: EDGAR GEMENT OF PATIENT CARE PER NURSING PROTOCOL Performed By: #### L 501.080 ####[facility] [address] [place], [address] FINGERSTICK GLU 354 mg/dL High 74-106 [facility] Comment on above: Result Comment: EDGAR GEMENT OF PATIENT CARE PER NURSING PROTOCOL Performed By: #### L 501.080 ####[facility] [address] [place], [address] FINGERSTICK GLU 146 mg/dL High 74-106 [facility] Comment on above: Result Comment: EDGAR GEMENT OF PATIENT CARE PER NURSING PROTOCOL Performed By: #### L 501.080 ####[facility] [address] [place], [address] FINGERSTICK GLU 51 mg/dL Low 74-106 [facility] Comment on above: Result Comment: EDGAR GEMENT OF PATIENT CARE PER NURSING PROTOCOL Performed By: #### L 501.080 ####[facility] [address] [place], [address] FINGERSTICK GLU 72 mg/dL Low 74-106 [facility] Comment on above: Result Comment: EDGAR GEMENT OF PATIENT CARE PER NURSING PROTOCOL Performed By: #### L 501.080 ####[facility] [address] [place], [address] FINGERSTICK GLU 127 mg/dL High 74-106 [facility] Comment on above: Result Comment: EDGAR GEMENT OF PATIENT CARE PER NURSING PROTOCOL Performed By: #### L 501.080 ####[facility] [address] [facility] [address] FINGERSTICK GLU 128 mg/dL High 74-106 [facility] Comment on above: Result Comment: EDGAR GEMENT OF PATIENT CARE PER NURSING PROTOCOL Performed By: #### L 501.080 ####[facility] [address] [facility] [address] FINGERSTICK GLU 135 mg/dL High 74-106 [facility] Comment on above: Result Comment: EDGAR GEMENT OF PATIENT CARE PER NURSING PROTOCOL Performed By: #### L 501.080 ####[facility] [address] [place], [address] FINGERSTICK GLU 127 mg/dL High 74-106 [facility] Comment on above: Result Comment: EDGAR GEMENT OF PATIENT CARE PER NURSING PROTOCOL Performed By: #### L 501.080 ####[facility] [address] [facility] [address] FINGERSTICK GLU 131 mg/dL High 74-106 [facility] Comment on above: Result Comment: EDGAR GEMENT OF PATIENT CARE PER NURSING PROTOCOL Performed By: #### L 501.080 ####[facility] [address] [facility] [address] FINGERSTICK GLU 136 mg/dL High 74-106 [facility] Comment on above: Result Comment: EDGAR GEMENT OF PATIENT CARE PER NURSING PROTOCOL Performed By: #### L 501.080 ####[facility] [address] [place], [address] FINGERSTICK GLU 170 mg/dL High 74-106 [facility] Comment on above: Result Comment: EDGAR GEMENT OF PATIENT CARE PER NURSING PROTOCOL Performed By: #### L 501.080 ####[facility] [address] [place], [address] FINGERSTICK GLU 206 mg/dL High 74-106 [facility] Comment on above: Result Comment: EDGAR GEMENT OF PATIENT CARE PER NURSING PROTOCOL Performed By: #### L 501.080 ####[facility] [address] [place], [address] CBC W/Diff, Automatedon 10-1 3-2023 Absolute Lymph 1.62 X10 3/uL Normal 0.83-4.51 [facility] Comment on above: Performed By: #### L 501.2300, L100.0100 ####[facility] [address] [place], [address] Absolute Neut 14.1 X10 3/uL High 2.0-7.7 [facility] Comment on above: Performed By: #### L 501.2300, L100.0100 ####[facility] [address] [place], [address] Basophils/100 WBC (Bld) 0.2 % Normal 0-1 [facility] Comment on above: Performed By: #### L 501.2300, L100.0100 ####[facility] [address] [place], [address] Eosinophils/100 WBC (Bld) 0.1 % Normal 0-5 [facility] Comment on above: Performed By: #### L 501.2300, L100.0100 ####[facility] [address] [place], [address] Erythrocyte distribution width (RBC) [Ratio] 12.9 % Normal 11.6-14.6 [facility] Comment on above: Performed By: #### L 501.2300, L100.0100 ####[facility] [address] [place], [address] Hematocrit (Bld) [Volume fraction] 34.0 % Low 37-47 [facility] Comment on above: Performed By: #### L 501.2300, L100.0100 ####[facility] [address] [place], [address] Hemoglobin (Bld) [Mass/Vol] 11.1 g/dL Low 12.0-15.0 [facility] Comment on above: Performed By: #### L 501.2300, L100.0100 ####[facility] [address] [place], [address] IG% 0.800 Normal 0.0-0.9 [facility] Comment on above: Result Comment: IG% - Immature Granulocytes (promyelocytes, myelocytes andmetamyelocytes) > 1% indicates that a LEFT SHIFT is Present. Performed By: #### L 501.2300, L100.0100 ####[facility] [address] [place], [address] Lymphocytes/100 WBC (Bld) 9.7 % Low 19-41 [facility] Comment on above: Performed By: #### L 501.2300, L100.0100 ####[facility] [address] [place], [address] MCH (RBC) [Entitic mass] 29.1 pg Normal 27.0-32.0 [facility] Comment on above: Performed By: #### L 501.2300, L100.0100 ####[facility] [address] [place], [address] MCHC (RBC) [Mass/Vol] 32.6 g/dL Normal 32-36 [facility] Comment on above: Performed By: #### L 501.2300, L100.0100 ####[facility] [address] [place], [address] MCV (RBC) [Entitic vol] 89.2 fL Normal 81-99 [facility] Comment on above: Performed By: #### L 501.2300, L100.0100 ####[facility] [address] [place], [address] Monocytes/100 WBC (Bld) 5.1 % Normal 0-10 [facility] Comment on above: Performed By: #### L 501.2300, L100.0100 ####[facility] [address] [place], [address] Neutrophils/100 WBC (Bld) 84.1 % High 47-70 [facility] Comment on above: Performed By: #### L 501.2300, L100.0100 ####[facility] [address] [place], [address] Nucleated RBC (Bld) [#/Vol] 0 10*3/uL Normal 0-5 [facility] Comment on above: Performed By: #### L 501.2300, L100.0100 ####[facility] [address] [place], [address] Platelet mean volume (Bld) [Entitic vol] 12.0 fL Normal 6.2-12.0 [facility] Comment on above: Performed By: #### L 501.2300, L100.0100 ####[facility] [address] [place], [address] Platelets (Bld) [#/Vol] 147 10*3/uL Low 150-450 [facility] Comment on above: Performed By: #### L 501.2300, L100.0100 ####[facility] [address] [place], [address] RBC (Bld) [#/Vol] 3.81 10*6/uL Low 4.2-5.4 [facility] Comment on above: Performed By: #### L 501.2300, L100.0100 ####[facility] [address] [place], [address] RDW SD 42.1 fl Normal 35.1-43.9 [facility] Comment on above: Performed By: #### L 501.2300, L100.0100 ####[facility] [address] [place], [address] WBC (Bld) [#/Vol] 16.7 10*3/uL High 4.4-11.0 [facility] Comment on above: Performed By: #### L 501.2300, L100.0100 ####[facility] [address] [place], [address] Comprehensive Metabolic Prof ilon 06-09-2024 Albumin [Mass/Vol] 3.0 g/dL Low 3.2-5.0 [facility] Comment on above: Order Comment: Call MD with results STAT Performed By: #### L 500.4050, L501.5200 ####[facility] [address] [place], [address] Albumin/Globulin [Mass ratio] 1.1 {ratio} Normal 0.9-2.4 [facility] Comment on above: Order Comment: Call MD with results STAT Performed By: #### L 500.4050, L501.5200 ####[facility] [address] [place], [address] ALK P 68 U/L Normal 45-117 [facility] Comment on above: Order Comment: Call MD with results STAT Performed By: #### L 500.4050, L501.5200 ####[facility] [address] [place], [address] ALT [Catalytic activity/Vol] 22 U/L Normal 13-56 [facility] Comment on above: Order Comment: Call MD with results STAT Performed By: #### L 500.4050, L501.5200 ####[facility] [address] [place], [address] AST [Catalytic activity/Vol] 12 U/L Low 15-37 [facility] Comment on above: Order Comment: Call MD with results STAT Performed By: #### L 500.4050, L501.5200 ####[facility] [address] [place], [address] Bilirubin [Mass/Vol] 0.80 mg/dL Normal 0.20-1.00 [facility] Comment on above: Order Comment: Call MD with results STAT Result Comment: For patients on eltrombopag therapy, use of Dimension Gregory TBIL is not recommended. Performed By: #### L 500.4050, L501.5200 ####[facility] [address] [place], [address] BUN/CRE 16.7 RATIO Normal 10-20 [facility] Comment on above: Order Comment: Call MD with results STAT Performed By: #### L 500.4050, L501.5200 ####[facility] [address] [place], [address] CA,Total 7.7 mg/dL Low 8.5-10.1 [facility] Comment on above: Order Comment: Call MD with results STAT Performed By: #### L 500.4050, L501.5200 ####[facility] [address] [place], [address] Chloride [Moles/Vol] 111 mmol/L High 98-107 [facility] Comment on above: Order Comment: Call MD with results STAT Performed By: #### L 500.4050, L501.5200 ####[facility] [address] [place], [address] CO2 [Moles/Vol] 23.0 mmol/L Normal 21.0-32.0 [facility] Comment on above: Order Comment: Call MD with results STAT Performed By: #### L 500.4050, L501.5200 ####[facility] [address] [place], [address] Creatinine [Mass/Vol] 0.60 mg/dL Normal 0.55-1.02 [facility] Comment on above: Order Comment: Call MD with results STAT Result Comment: The validity of the calculated GFR GFRAA in patients over70 years has not been determined. Clinical correlation isessential. Performed By: #### L 500.4050, L501.5200 ####[facility] [address] [place], [address] ECRCL 144.58 ml/min Normal [facility] Comment on above: Order Comment: Call MD with results STAT Performed By: #### L 500.4050, L501.5200 ####[facility] [address] [place], [address] EST GFR - AA 151 mL/min Normal >60 [facility] Comment on above: Order Comment: Call MD with results STAT Result Comment: Afri can Indian GFR Calc Performed By: #### L 500.4050, L501.5200 ####[facility] [address] [place], [address] GAP 6 Normal 5-15 [facility] Comment on above: Order Comment: Call MD with results STAT Performed By: #### L 500.4050, L501.5200 ####[facility] [address] [place], [address] GFR/1.73 sq M.predicted among non-blacks MDRD (S/P/Bld) [Vol rate/Area] 125 mL/min/{1.73_m2} Normal >60 [facility] Comment on above: Order Comment: Call MD with results STAT Result Comment: Non- GFR Calc Performed By: #### L 500.4050, L501.5200 ####[facility] [address] [place], [address] Globulin (S) [Mass/Vol] 2.7 g/dL Normal 2.2-4.2 [facility] Comment on above: Order Comment: Call MD with results STAT Performed By: #### L 500.4050, L501.5200 ####[facility] [address] [place], [address] Glucose [Mass/Vol] 142 mg/dL High 74-106 [facility] Comment on above: Order Comment: Call MD with results STAT Result Comment: Fast ing Glucose result greater than or equal to 126 mg/dLsuggests DIABETES MELLITUS per A.D.A. criteria. Performed By: #### L 500.4050, L501.5200 ####[facility] [address] [place], [address] Potassium [Moles/Vol] 3.0 mmol/L Low 3.5-5.1 [facility] Comment on above: Order Comment: Call MD with results STAT Performed By: #### L 500.4050, L501.5200 ####[facility] [address] [place], [address] Sodium [Moles/Vol] 139 mmol/L Normal 136-145 [facility] Comment on above: Order Comment: Call MD with results STAT Performed By: #### L 500.4050, L501.5200 ####[facility] [address] [place], [address] T PROT 5.7 g/dL Low 6.4-8.2 [facility] Comment on above: Order Comment: Call MD with results STAT Performed By: #### L 500.4050, L501.5200 ####[facility] [address] [place], [address] Urea nitrogen [Mass/Vol] 10 mg/dL Normal - [facility] Comment on above: Order Comment: Call MD with results STAT Performed By: #### L 500.4050, L501.5200 ####[facility] [address] [place], [address] Magnesiumon 06-09-2024 Magnesium [Mass/Vol] 2.0 mg/dL Normal 1.6-2.6 [facility] Comment on above: Order Comment: Call MD with results STAT Performed By: #### L 500.4050, L501.5200 ####[facility] [address] [place], [address] Phosphoruson 06-09-2024 Phosphate [Mass/Vol] 1.2 mg/dL Low 2.5-4.9 [facility] Comment on above: Performed By: #### L 501.2300, L100.0100 ####[facility] [address] [place], [address] Acetone Serumon 06-08-2024 ACETONE SERUM SMALL Abnormal NEG [facility] Comment on above: Order Comment: Comme nts: If not done in the ED Performed By: #### L 501.6900 ####[facility] [address] [place], [address] Basic Metabolic Profile (BMP )on 06-08-2024 BUN Normal 03-14 [facility] Comment on above: Order Comment: Call MD with results STAT Result Comment: NOT COLLECTED. Performed By: #### L 500.2500 ####[facility] [address] [place], [address] BUN/CRE Normal 06-16 [facility] Comment on above: Order Comment: Call MD with results STAT Result Comment: NOT COLLECTED. Performed By: #### L 500.2500 ####[facility] [address] [place], [address] CA,Total Normal 8.5-10.1 [facility] Comment on above: Order Comment: Call MD with results STAT Result Comment: NOT COLLECTED. Performed By: #### L 500.2500 ####[facility] [address] [place], [address] CL Normal 98-107 [facility] Comment on above: Order Comment: Call MD with results STAT Result Comment: NOT COLLECTED. Performed By: #### L 500.2500 ####[facility] [address] [place], [address] CO2 Normal 21.0-32.0 [facility] Comment on above: Order Comment: Call MD with results STAT Result Comment: NOT COLLECTED. Performed By: #### L 500.2500 ####[facility] [address] [place], [address] CREAT,SERUM Normal 0.55-1.02 [facility] Comment on above: Order Comment: Call MD with results STAT Result Comment: NOT COLLECTED. Performed By: #### L 500.2500 ####[facility] [address] [place], [address] EST GFR Normal >60 [facility] Comment on above: Order Comment: Call MD with results STAT Result Comment: NOT COLLECTED. Performed By: #### L 500.2500 ####[facility] [address] [place], [address] EST GFR - AA Normal >60 [facility] Comment on above: Order Comment: Call MD with results STAT Result Comment: NOT COLLECTED. Performed By: #### L 500.2500 ####[facility] [address] [place], [address] GAP Normal 5-15 [facility] Comment on above: Order Comment: Call MD with results STAT Result Comment: NOT COLLECTED. Performed By: #### L 500.2500 ####[facility] [address] [place], [address] GLU Normal 74-106 [facility] Comment on above: Order Comment: Call MD with results STAT Result Comment: NOT COLLECTED. Performed By: #### L 500.2500 ####[facility] [address] [place], [address] Potassium Normal 3.5-5.1 [facility] Comment on above: Order Comment: Call MD with results STAT Result Comment: NOT COLLECTED. Performed By: #### L 500.2500 ####[facility] [address] [place], [address] Basic Metabolic Profile (BMP) Normal 136-145 [facility] Comment on above: Order Comment: Call MD with results STAT Result Comment: NOT COLLECTED. Performed By: #### L 500.2500 ####[facility] [address] [place], [address] BUN Normal 7-18 [facility] Comment on above: Order Comment: Call MD with results STAT Result Comment: NOT COLLECTED. Performed By: #### L 500.2500 ####[facility] [address] [place], [address] BUN/CRE Normal 10-20 [facility] Comment on above: Order Comment: Call MD with results STAT Result Comment: NOT COLLECTED. Performed By: #### L 500.2500 ####[facility] [address] [place], [address] CA,Total Normal 8.5-10.1 [facility] Comment on above: Order Comment: Call MD with results STAT Result Comment: NOT COLLECTED. Performed By: #### L 500.2500 ####[facility] [address] [place], [address] CL Normal 98-107 [facility] Comment on above: Order Comment: Call MD with results STAT Result Comment: NOT COLLECTED. Performed By: #### L 500.2500 ####[facility] [address] [place], [address] CO2 Normal 21.0-32.0 [facility] Comment on above: Order Comment: Call MD with results STAT Result Comment: NOT COLLECTED. Performed By: #### L 500.2500 ####[facility] [address] [place], [address] CREAT,SERUM Normal 0.55-1.02 [facility] Comment on above: Order Comment: Call MD with results STAT Result Comment: NOT COLLECTED. Performed By: #### L 500.2500 ####[facility] [address] [place], [address] EST GFR Normal >60 [facility] Comment on above: Order Comment: Call MD with results STAT Result Comment: NOT COLLECTED. Performed By: #### L 500.2500 ####[facility] [address] [place], [address] EST GFR - AA Normal >60 [facility] Comment on above: Order Comment: Call MD with results STAT Result Comment: NOT COLLECTED. Performed By: #### L 500.2500 ####[facility] [address] [place], [address] GAP Normal 5-15 [facility] Comment on above: Order Comment: Call MD with results STAT Result Comment: NOT COLLECTED. Performed By: #### L 500.2500 ####[facility] [address] [place], [address] GLU Normal 74-106 [facility] Comment on above: Order Comment: Call MD with results STAT Result Comment: NOT COLLECTED. Performed By: #### L 500.2500 ####[facility] [address] [place], [address] Potassium Normal 3.5-5.1 [facility] Comment on above: Order Comment: Call MD with results STAT Result Comment: NOT COLLECTED. Performed By: #### L 500.2500 ####[facility] [address] [place], [address] Basic Metabolic Profile (BMP) Normal 136-145 [facility] Comment on above: Order Comment: Call MD with results STAT Result Comment: NOT COLLECTED. Performed By: #### L 500.2500 ####[facility] [address] [place], [address] BUN/CRE 19.6 RATIO Normal 10-20 [facility] Comment on above: Performed By: #### L 500.2500 ####[facility] [address] [place], [address] CA,Total 8.0 mg/dL Low 8.5-10.1 [facility] Comment on above: Performed By: #### L 500.2500 ####[facility] [address] [place], [address] Chloride [Moles/Vol] 112 mmol/L High 98-107 [facility] Comment on above: Performed By: #### L 500.2500 ####[facility] [address] [place], [address] CO2 [Moles/Vol] 18.0 mmol/L Low 21.0-32.0 [facility] Comment on above: Performed By: #### L 500.2500 ####[facility] [address] [place], [address] Creatinine [Mass/Vol] 0.87 mg/dL Normal 0.55-1.02 [facility] Comment on above: Result Comment: The validity of the calculated GFR GFRAA in patients over70 years has not been determined. Clinical correlation isessential. Performed By: #### L 500.2500 ####[facility] [address] [place], [address] ECRCL 99.71 ml/min Normal [facility] Comment on above: Performed By: #### L 500.2500 ####[facility] [address] [place], [address] EST GFR - AA 99 mL/min Normal >60 [facility] Comment on above: Result Comment: Afri can Indian GFR Calc Performed By: #### L 500.2500 ####[facility] [address] [place], [address] GAP 10 Normal 5-15 [facility] Comment on above: Performed By: #### L 500.2500 ####[facility] [address] [place], [address] GFR/1.73 sq M.predicted among non-blacks MDRD (S/P/Bld) [Vol rate/Area] 82 mL/min/{1.73_m2} Normal >60 [facility] Comment on above: Result Comment: Non- GFR Calc Performed By: #### L 500.2500 ####[facility] [address] [place], [address] Glucose [Mass/Vol] 189 mg/dL High 74-106 [facility] Comment on above: Result Comment: Fast ing Glucose result greater than or equal to 126 mg/dLsuggests DIABETES MELLITUS per A.D.A. criteria. Performed By: #### L 500.2500 ####[facility] [address] [place], [address] Potassium [Moles/Vol] 3.8 mmol/L Normal 3.5-5.1 [facility] Comment on above: Performed By: #### L 500.2500 ####[facility] [address] [place], [address] Sodium [Moles/Vol] 140 mmol/L Normal 136-145 [facility] Comment on above: Performed By: #### L 500.2500 ####[facility] [address] [place], [address] Urea nitrogen [Mass/Vol] 17 mg/dL Normal 7-18 [facility] Comment on above: Performed By: #### L 500.2500 ####[facility] [address] [place], [address] BUN Normal 7-18 [facility] Comment on above: Order Comment: Call MD with results STAT Result Comment: NOT COLLECTED. Performed By: #### L 500.2500 ####[facility] [address] [place], [address] BUN/CRE Normal 10-20 [facility] Comment on above: Order Comment: Call MD with results STAT Result Comment: NOT COLLECTED. Performed By: #### L 500.2500 ####[facility] [address] [place], [address] CA,Total Normal 8.5-10.1 [facility] Comment on above: Order Comment: Call MD with results STAT Result Comment: NOT COLLECTED. Performed By: #### L 500.2500 ####[facility] [address] [place], [address] CL Normal 98-107 [facility] Comment on above: Order Comment: Call MD with results STAT Result Comment: NOT COLLECTED. Performed By: #### L 500.2500 ####[facility] [address] [place], [address] CO2 Normal 21.0-32.0 [facility] Comment on above: Order Comment: Call MD with results STAT Result Comment: NOT COLLECTED. Performed By: #### L 500.2500 ####[facility] [address] [place], [address] CREAT,SERUM Normal 0.55-1.02 [facility] Comment on above: Order Comment: Call MD with results STAT Result Comment: NOT COLLECTED. Performed By: #### L 500.2500 ####[facility] [address] [place], [address] EST GFR Normal >60 [facility] Comment on above: Order Comment: Call MD with results STAT Result Comment: NOT COLLECTED. Performed By: #### L 500.2500 ####[facility] [address] [place], [address] EST GFR - AA Normal >60 [facility] Comment on above: Order Comment: Call MD with results STAT Result Comment: NOT COLLECTED. Performed By: #### L 500.2500 ####[facility] [address] [place], [address] GAP Normal 5-15 [facility] Comment on above: Order Comment: Call MD with results STAT Result Comment: NOT COLLECTED. Performed By: #### L 500.2500 ####[facility] [address] [place], [address] GLU Normal 74-106 [facility] Comment on above: Order Comment: Call MD with results STAT Result Comment: NOT COLLECTED. Performed By: #### L 500.2500 ####[facility] [address] [place], [address] Potassium Normal 3.5-5.1 [facility] Comment on above: Order Comment: Call MD with results STAT Result Comment: NOT COLLECTED. Performed By: #### L 500.2500 ####[facility] [address] [place], [address] Basic Metabolic Profile (BMP) Normal 136-145 [facility] Comment on above: Order Comment: Call MD with results STAT Result Comment: NOT COLLECTED. Performed By: #### L 500.2500 ####[facility] [address] [place], [address] BUN/CRE 19.6 RATIO Normal 10-20 [facility] Comment on above: Order Comment: Call MD with results STAT Performed By: #### L 500.2500 ####[facility] [address] [place], [address] CA,Total 7.9 mg/dL Low 8.5-10.1 [facility] Comment on above: Order Comment: Call MD with results STAT Performed By: #### L 500.2500 ####[facility] [address] [place], [address] Chloride [Moles/Vol] 112 mmol/L High 98-107 [facility] Comment on above: Order Comment: Call MD with results STAT Performed By: #### L 500.2500 ####[facility] [address] [place], [address] CO2 [Moles/Vol] 17.0 mmol/L Low 21.0-32.0 [facility] Comment on above: Order Comment: Call MD with results STAT Performed By: #### L 500.2500 ####[facility] [address] [place], [address] Creatinine [Mass/Vol] 1.02 mg/dL Normal 0.55-1.02 [facility] Comment on above: Order Comment: Call MD with results STAT Result Comment: The validity of the calculated GFR GFRAA in patients over70 years has not been determined. Clinical correlation isessential. Performed By: #### L 500.2500 ####[facility] [address] [place], [address] ECRCL 82.09 ml/min Normal [facility] Comment on above: Order Comment: Call MD with results STAT Performed By: #### L 500.2500 ####[facility] [address] [place], [address] EST GFR - AA 82 mL/min Normal >60 [facility] Comment on above: Order Comment: Call MD with results STAT Result Comment: Afri can Indian GFR Calc Performed By: #### L 500.2500 ####[facility] [address] [place], [address] GAP 10 Normal 5-15 [facility] Comment on above: Order Comment: Call MD with results STAT Performed By: #### L 500.2500 ####[facility] [address] [place], [address] GFR/1.73 sq M.predicted among non-blacks MDRD (S/P/Bld) [Vol rate/Area] 68 mL/min/{1.73_m2} Normal >60 [facility] Comment on above: Order Comment: Call MD with results STAT Result Comment: Non- GFR Calc Performed By: #### L 500.2500 ####[facility] [address] [place], [address] Glucose [Mass/Vol] 168 mg/dL High 74-106 [facility] Comment on above: Order Comment: Call MD with results STAT Result Comment: Fast ing Glucose result greater than or equal to 126 mg/dLsuggests DIABETES MELLITUS per A.D.A. criteria. Performed By: #### L 500.2500 ####[facility] [address] [place], [address] Potassium [Moles/Vol] 3.7 mmol/L Normal 3.5-5.1 [facility] Comment on above: Order Comment: Call MD with results STAT Performed By: #### L 500.2500 ####[facility] [address] [place], [address] Sodium [Moles/Vol] 139 mmol/L Normal 136-145 [facility] Comment on above: Order Comment: Call MD with results STAT Performed By: #### L 500.2500 ####[facility] [address] [place], [address] Urea nitrogen [Mass/Vol] 20 mg/dL High 7-18 [facility] Comment on above: Order Comment: Call MD with results STAT Performed By: #### L 500.2500 ####[facility] [address] [place], [address] Bedside Glucoseon 06-08-2024 FINGERSTICK GLU 191 mg/dL High 74-106 [facility] Comment on above: Result Comment: EDGAR HUNG OF PATIENT CARE PER NURSING PROTOCOL Performed By: #### L 501.080 ####[facility] [address] [place], [address] FINGERSTICK GLU 198 mg/dL High 74-106 [facility] Comment on above: Result Comment: EDGAR GEMENT OF PATIENT CARE PER NURSING PROTOCOL Performed By: #### L 501.080 ####[facility] [address] [place], [address] FINGERSTICK GLU 247 mg/dL High 74-106 [facility] Comment on above: Result Comment: EDGAR GEMENT OF PATIENT CARE PER NURSING PROTOCOL Performed By: #### L 501.080 ####[facility] [address] [place], [address] FINGERSTICK GLU 252 mg/dL High -106 [facility] Comment on above: Result Comment: EDGAR GEMENT OF PATIENT CARE PER NURSING PROTOCOL Performed By: #### L 501.080 ####[facility] [address] [place], [address] FINGERSTICK GLU 205 mg/dL High 74-106 [facility] Comment on above: Result Comment: EDGAR GEMENT OF PATIENT CARE PER NURSING PROTOCOL Performed By: #### L 501.080 ####[facility] [address] [place], [address] FINGERSTICK GLU 151 mg/dL High 74-106 [facility] Comment on above: Result Comment: EDGAR GEMENT OF PATIENT CARE PER NURSING PROTOCOL Performed By: #### L 501.080 ####[facility] [address] [place], [address] FINGERSTICK GLU 176 mg/dL High -106 [facility] Comment on above: Result Comment: EDGAR GEMENT OF PATIENT CARE PER NURSING PROTOCOL Performed By: #### L 501.080 ####[facility] [address] [place], [address] FINGERSTICK GLU 121 mg/dL High 74-106 [facility] Comment on above: Result Comment: EDGAR GEMENT OF PATIENT CARE PER NURSING PROTOCOL Performed By: #### L 501.080 ####[facility] [address] [place], [address] FINGERSTICK GLU 108 mg/dL High 74-106 [facility] Comment on above: Result Comment: EDGAR GEMENT OF PATIENT CARE PER NURSING PROTOCOL Performed By: #### L 501.080 ####[facility] [address] [place], [address] FINGERSTICK GLU 114 mg/dL High 74-106 [facility] Comment on above: Result Comment: EDGAR GEMENT OF PATIENT CARE PER NURSING PROTOCOL Performed By: #### L 501.080 ####[facility] [address] [place], [address] FINGERSTICK GLU 236 mg/dL High 74-106 [facility] Comment on above: Result Comment: EDGAR GEMENT OF PATIENT CARE PER NURSING PROTOCOL Performed By: #### L 501.080 ####[facility] [address] [place], [address] FINGERSTICK GLU 251 mg/dL High 74-106 [facility] Comment on above: Result Comment: EDGAR GEMENT OF PATIENT CARE PER NURSING PROTOCOL Performed By: #### L 501.080 ####[facility] [address] [place], [address] FINGERSTICK GLU 261 mg/dL High 74-106 [facility] Comment on above: Result Comment: EDGAR GEMENT OF PATIENT CARE PER NURSING PROTOCOL Performed By: #### L 501.080 ####[facility] [address] [place], [address] FINGERSTICK GLU 402 mg/dL High 74-106 [facility] Comment on above: Result Comment: EDGAR GEMENT OF PATIENT CARE PER NURSING PROTOCOL Performed By: #### L 501.080 ####[facility] [address] [place], [address] FINGERSTICK GLU 324 mg/dL High 74-106 [facility] Comment on above: Result Comment: EDGAR HUNG OF PATIENT CARE PER NURSING PROTOCOL Performed By: #### L 501.080 ####[facility] [address] [place], [address] Blood Gases by [facility] 024 GEM TEST Positive Normal [facility] Comment on above: Performed By: #### L 9000.0800 ####[facility] [address] [place], [address] Base excess Calc (Bld) [Moles/Vol] -14 mmol/L Low -2 to +2 [facility] Comment on above: Performed By: #### L 9000.0800 ####[facility] [address] [place], [address] Blood Gas Type ART Normal [facility] Comment on above: Performed By: #### L 9000.0800 ####[facility] [address] [place], [address] CO2 [Moles/Vol] 11 mmol/L [facility] Comment on above: Performed By: #### L 9000.0800 ####[facility] [address] [place], [address] FI02 21.0 Normal [facility] Comment on above: Performed By: #### L 9000.0800 ####[facility] [address] [place], [address] HCO3 (Bld) [Moles/Vol] 10.7 mmol/L Low 22-26 [facility] Comment on above: Performed By: #### L 9000.0800 ####[facility] [address] [place], [address] Mode Not entered Normal [facility] Comment on above: Performed By: #### L 9000.0800 ####[facility] [address] [place], [address] O2 Delivery Dev Room Air Normal [facility] Comment on above: Performed By: #### L 9000.0800 ####[facility] [address] [place], [address] pCO2 17.9 mmHg Invalid Interpretation Code 35-45 [facility] Comment on above: Performed By: #### L 9000.0800 ####[facility] [address] [place], [address] pH (Bld) 7.39 [pH] Normal 7.35-7.45 [facility] Comment on above: Performed By: #### L 9000.0800 ####[facility] [address] [place], [address] PO2 114 mmHG High 75-100 [facility] Comment on above: Performed By: #### L 9000.0800 ####[facility] [address] [place], [address] Read Back By Yes [facility] Comment on above: Performed By: #### L 9000.0800 ####[facility] [address] [place], [address] Results To denia [facility] Comment on above: Performed By: #### L 9000.0800 ####[facility] [address] [place], [address] SITE L Radial Normal [facility] Comment on above: Performed By: #### L 9000.0800 ####[facility] [address] [place], [address] SO2 99 Normal 95-99 [facility] Comment on above: Performed By: #### L 9000.0800 ####[facility] [address] [place], [address] Time Given 09:45:00 Normal [facility] Comment on above: Performed By: #### L 9000.0800 ####[facility] [address] [place], [address] CBC W/Diff, Automatedon 10-1 Absolute Lymph 0.71 X10 3/uL Low 0.83-4.51 [facility] Comment on above: Performed By: #### L 500.4050, L100.0100, L501.5200 ####[facility] [address] [place], [address] Absolute Neut 19.8 X10 3/uL High 2.0-7.7 [facility] Comment on above: Performed By: #### L 500.4050, L100.0100, L501.5200 ####[facility] [address] [place], [address] Basophils/100 WBC (Bld) 0.1 % Normal 0-1 [facility] Comment on above: Performed By: #### L 500.4050, L100.0100, L501.5200 ####[facility] [address] [place], [address] Eosinophils/100 WBC (Bld) 0.0 % Normal 0-5 [facility] Comment on above: Performed By: #### L 500.4050, L100.0100, L501.5200 ####[facility] [address] [place], [address] Erythrocyte distribution width (RBC) [Ratio] 12.9 % Normal 11.6-14.6 [facility] Comment on above: Performed By: #### L 500.4050, L100.0100, L501.5200 ####[facility] [address] [place], [address] Hematocrit (Bld) [Volume fraction] 41.0 % Normal 37-47 [facility] Comment on above: Performed By: #### L 500.4050, L100.0100, L501.5200 ####[facility] [address] [place], [address] Hemoglobin (Bld) [Mass/Vol] 13.2 g/dL Normal 12.0-15.0 [facility] Comment on above: Performed By: #### L 500.4050, L100.0100, L501.5200 ####[facility] [address] [place], [address] IG% 0.900 Normal 0.0-0.9 [facility] Comment on above: Result Comment: IG% - Immature Granulocytes (promyelocytes, myelocytes andmetamyelocytes) > 1% indicates that a LEFT SHIFT is Present. Performed By: #### L 500.4050, L100.0100, L501.5200 ####[facility] [address] [place], [address] Lymphocytes/100 WBC (Bld) 3.3 % Low 19-41 [facility] Comment on above: Performed By: #### L 500.4050, L100.0100, L501.5200 ####[facility] [address] [place], [address] MCH (RBC) [Entitic mass] 29.7 pg Normal 27.0-32.0 [facility] Comment on above: Performed By: #### L 500.4050, L100.0100, L501.5200 ####[facility] [address] [place], [address] MCHC (RBC) [Mass/Vol] 32.2 g/dL Normal 32-36 [facility] Comment on above: Performed By: #### L 500.4050, L100.0100, L501.5200 ####[facility] [address] [place], [address] MCV (RBC) [Entitic vol] 92.1 fL Normal 81-99 [facility] Comment on above: Performed By: #### L 500.4050, L100.0100, L501.5200 ####[facility] [address] [place], [address] Monocytes/100 WBC (Bld) 4.9 % Normal 0-10 [facility] Comment on above: Performed By: #### L 500.4050, L100.0100, L501.5200 ####[facility] [address] [place], [address] Neutrophils/100 WBC (Bld) 90.8 % High 47-70 [facility] Comment on above: Performed By: #### L 500.4050, L100.0100, L501.5200 ####[facility] [address] [place], [address] Nucleated RBC (Bld) [#/Vol] 0 10*3/uL Normal 0-5 [facility] Comment on above: Performed By: #### L 500.4050, L100.0100, L501.5200 ####[facility] [address] [place], [address] Platelet mean volume (Bld) [Entitic vol] 13.6 fL High 6.2-12.0 [facility] Comment on above: Performed By: #### L 500.4050, L100.0100, L501.5200 ####[facility] [address] [place], [address] Platelets (Bld) [#/Vol] 171 10*3/uL Normal 150-450 [facility] Comment on above: Performed By: #### L 500.4050, L100.0100, L501.5200 ####[facility] [address] [place], [address] RBC (Bld) [#/Vol] 4.45 10*6/uL Normal 4.2-5.4 [facility] Comment on above: Performed By: #### L 500.4050, L100.0100, L501.5200 ####[facility] [address] [place], [address] RDW SD 43.6 fl Normal 35.1-43.9 [facility] Comment on above: Performed By: #### L 500.4050, L100.0100, L501.5200 ####[facility] [address] [place], [address] WBC (Bld) [#/Vol] 21.8 10*3/uL High 4.4-11.0 [facility] Comment on above: Performed By: #### L 500.4050, L100.0100, L501.5200 ####[facility] [address] [place], [address] Comprehensive Metabolic Prof [facility] 06-08-2024 Albumin [Mass/Vol] 3.9 g/dL Normal 3.2-5.0 [facility] Comment on above: Performed By: #### L 500.4050, L100.0100, L501.5200 ####[facility] [address] [place], [address] Albumin/Globulin [Mass ratio] 1.2 {ratio} Normal 0.9-2.4 [facility] Comment on above: Performed By: #### L 500.4050, L100.0100, L501.5200 ####[facility] [address] [place], [address] ALK P 90 U/L Normal 45-117 [facility] Comment on above: Performed By: #### L 500.4050, L100.0100, L501.5200 ####[facility] [address] [place], [address] ALT [Catalytic activity/Vol] 21 U/L Normal 13-56 [facility] Comment on above: Performed By: #### L 500.4050, L100.0100, L501.5200 ####[facility] [address] [place], [address] AST [Catalytic activity/Vol] 15 U/L Normal 15-37 [facility] Comment on above: Performed By: #### L 500.4050, L100.0100, L501.5200 ####[facility] [address] [place], [address] Bilirubin [Mass/Vol] 1.30 mg/dL High 0.20-1.00 [facility] Comment on above: Result Comment: For patients on eltrombopag therapy, use of Dimension Gregory TBIL is not recommended. Performed By: #### L 500.4050, L100.0100, L501.5200 ####[facility] [address] [place], [address] BUN/CRE 22.0 RATIO High 10-20 [facility] Comment on above: Performed By: #### L 500.4050, L100.0100, L501.5200 ####[facility] [address] [place], [address] CA,Total 8.9 mg/dL Normal 8.5-10.1 [facility] Comment on above: Performed By: #### L 500.4050, L100.0100, L501.5200 ####[facility] [address] [place], [address] Chloride [Moles/Vol] 100 mmol/L Normal 98-107 [facility] Comment on above: Performed By: #### L 500.4050, L100.0100, L501.5200 ####[facility] [address] [place], [address] CO2 [Moles/Vol] 12.0 mmol/L Low 21.0-32.0 [facility] Comment on above: Performed By: #### L 500.4050, L100.0100, L501.5200 ####[facility] [address] [place], [address] Creatinine [Mass/Vol] 1.00 mg/dL Normal 0.55-1.02 [facility] Comment on above: Result Comment: The validity of the calculated GFR GFRAA in patients over70 years has not been determined. Clinical correlation isessential. Performed By: #### L 500.4050, L100.0100, L501.5200 ####[facility] [address] [place], [address] ECRCL 83.74 ml/min Normal [facility] Comment on above: Performed By: #### L 500.4050, L100.0100, L501.5200 ####[facility] [address] [place], [address] EST GFR - AA 84 mL/min Normal >60 [facility] Comment on above: Result Comment: Afri can Indian GFR Calc Performed By: #### L 500.4050, L100.0100, L501.5200 ####[facility] [address] [place], [address] GAP 18 High 5-15 [facility] Comment on above: Performed By: #### L 500.4050, L100.0100, L501.5200 ####[facility] [address] [place], [address] GFR/1.73 sq M.predicted among non-blacks MDRD (S/P/Bld) [Vol rate/Area] 69 mL/min/{1.73_m2} Normal >60 [facility] Comment on above: Result Comment: Non- GFR Calc Performed By: #### L 500.4050, L100.0100, L501.5200 ####[facility] [address] [place], [address] Globulin (S) [Mass/Vol] 3.2 g/dL Normal 2.2-4.2 [facility] Comment on above: Performed By: #### L 500.4050, L100.0100, L501.5200 ####[facility] [address] [place], [address] Glucose [Mass/Vol] 398 mg/dL High 74-106 [facility] Comment on above: Result Comment: Gluc ose result greater than or equal to 200 mg/dLsuggests DIABETES MELLITUS per A.D.A. criteria. Performed By: #### L 500.4050, L100.0100, L501.5200 ####[facility] [address] [place], [address] Potassium [Moles/Vol] 4.2 mmol/L Normal 3.5-5.1 [facility] Comment on above: Performed By: #### L 500.4050, L100.0100, L501.5200 ####[facility] [address] [place], [address] Sodium [Moles/Vol] 131 mmol/L Low 136-145 [facility] Comment on above: Performed By: #### L 500.4050, L100.0100, L501.5200 ####[facility] [address] [place], [address] T PROT 7.1 g/dL Normal 6.4-8.2 [facility] Comment on above: Performed By: #### L 500.4050, L100.0100, L501.5200 ####[facility] [address] [place], [address] Urea nitrogen [Mass/Vol] 22 mg/dL High 7-18 [facility] Comment on above: Performed By: #### L 500.4050, L100.0100, L501.5200 ####[facility] [address] [place], [address] Hemoglobin A1con 06-08-2024 HbA1c (Bld) [Mass fraction] 8.6 % High 3.8-5.6 [facility] Comment on above: Result Comment: Norm al < 5.7 % Prediabetic 5.7 - 6.4 % Diabetic >or= 6.5 % Please note range changes. Performed By: #### L 501.9985 ####[facility] [address] [place], [address] Magnesiumon 06-08-2024 Magnesium [Mass/Vol] 1.8 mg/dL Normal 1.6-2.6 [facility] Comment on above: Performed By: #### L 500.4050, L100.0100, L501.5200 ####[facility] [address] [place], [address] Abdomen/Pelvis W IV Cont ONL Yon 06-07-2024 Abdomen/Pelvis W IV Cont ONLY Normal [facility] Bedside Glucoseon 06-07-2024 FINGERSTICK GLU 422 mg/dL High 74-106 [facility] Comment on above: Result Comment: EDGAR GEMENT OF PATIENT CARE PER NURSING PROTOCOL Performed By: #### L 501.080 ####[facility] [address] [place], [address] FINGERSTICK GLU 331 mg/dL High 74-106 [facility] Comment on above: Result Comment: EDGAR GEMENT OF PATIENT CARE PER NURSING PROTOCOL Performed By: #### L 501.080 ####[facility] [address] [place], [address] CBC W/Diff, Automatedon 05-28 Absolute Lymph 0.76 X10 3/uL Low 0.83-4.51 [facility] Comment on above: Performed By: #### L 501.2450, L100.0100, L501.4020, L500.4050 ####[facility] [address] [place], [address] Absolute Neut 14.6 X10 3/uL High 2.0-7.7 [facility] Comment on above: Performed By: #### L 501.2450, L100.0100, L501.4020, L500.4050 ####[facility] [address] [place], [address] Basophils/100 WBC (Bld) 0.3 % Normal 0-1 [facility] Comment on above: Performed By: #### L 501.2450, L100.0100, L501.4020, L500.4050 ####[facility] [address] [place], [address] Eosinophils/100 WBC (Bld) 0.0 % Normal 0-5 [facility] Comment on above: Performed By: #### L 501.2450, L100.0100, L501.4020, L500.4050 ####[facility] [address] [place], [address] Erythrocyte distribution width (RBC) [Ratio] 12.3 % Normal 11.6-14.6 [facility] Comment on above: Performed By: #### L 501.2450, L100.0100, L501.4020, L500.4050 ####[facility] [address] [place], [address] Hematocrit (Bld) [Volume fraction] 39.5 % Normal 37-47 [facility] Comment on above: Performed By: #### L 501.2450, L100.0100, L501.4020, L500.4050 ####[facility] [address] [place], [address] Hemoglobin (Bld) [Mass/Vol] 13.4 g/dL Normal 12.0-15.0 [facility] Comment on above: Performed By: #### L 501.2450, L100.0100, L501.4020, L500.4050 ####[facility] [address] [place], [address] IG% 0.900 Normal 0.0-0.9 [facility] Comment on above: Result Comment: IG% - Immature Granulocytes (promyelocytes, myelocytes andmetamyelocytes) > 1% indicates that a LEFT SHIFT is Present. Performed By: #### L 501.2450, L100.0100, L501.4020, L500.4050 ####[facility] [address] [place], [address] Lymphocytes/100 WBC (Bld) 4.8 % Low 19-41 [facility] Comment on above: Performed By: #### L 501.2450, L100.0100, L501.4020, L500.4050 ####[facility] [address] [place], [address] MCH (RBC) [Entitic mass] 29.2 pg Normal 27.0-32.0 [facility] Comment on above: Performed By: #### L 501.2450, L100.0100, L501.4020, L500.4050 ####[facility] [address] [place], [address] MCHC (RBC) [Mass/Vol] 33.9 g/dL Normal 32-36 [facility] Comment on above: Performed By: #### L 501.2450, L100.0100, L501.4020, L500.4050 ####[facility] [address] [place], [address] MCV (RBC) [Entitic vol] 86.1 fL Normal 81-99 [facility] Comment on above: Performed By: #### L 501.2450, L100.0100, L501.4020, L500.4050 ####[facility] [address] [place], [address] Monocytes/100 WBC (Bld) 2.6 % Normal 0-10 [facility] Comment on above: Performed By: #### L 501.2450, L100.0100, L501.4020, L500.4050 ####[facility] [address] [place], [address] Neutrophils/100 WBC (Bld) 91.4 % High 47-70 [facility] Comment on above: Performed By: #### L 501.2450, L100.0100, L501.4020, L500.4050 ####[facility] [address] [place], [address] Nucleated RBC (Bld) [#/Vol] 0 10*3/uL Normal 0-5 [facility] Comment on above: Performed By: #### L 501.2450, L100.0100, L501.4020, L500.4050 ####[facility] [address] [place], [address] Platelet mean volume (Bld) [Entitic vol] 13.6 fL High 6.2-12.0 [facility] Comment on above: Performed By: #### L 501.2450, L100.0100, L501.4020, L500.4050 ####[facility] [address] [place], [address] Platelets (Bld) [#/Vol] 167 10*3/uL Normal 150-450 [facility] Comment on above: Performed By: #### L 501.2450, L100.0100, L501.4020, L500.4050 ####[facility] [address] [place], [address] RBC (Bld) [#/Vol] 4.59 10*6/uL Normal 4.2-5.4 [facility] Comment on above: Performed By: #### L 501.2450, L100.0100, L501.4020, L500.4050 ####[facility] [address] [place], [address] RDW SD 38.5 fl Normal 35.1-43.9 [facility] Comment on above: Performed By: #### L 501.2450, L100.0100, L501.4020, L500.4050 ####[facility] [address] [place], [address] WBC (Bld) [#/Vol] 16.0 10*3/uL High 4.4-11.0 [facility] Comment on above: Performed By: #### L 501.2450, L100.0100, L501.4020, L500.4050 ####[facility] [address] [place], [address] Comprehensive Metabolic Prof [facility] 06-07-2024 Albumin [Mass/Vol] 4.1 g/dL Normal 3.2-5.0 [facility] Comment on above: Order Comment: 'TROP ' Serial specimen #1, #2 or #3: 1 Performed By: #### L 501.2450, L100.0100, L501.4020, L500.4050 ####[facility] [address] [place], [address] Albumin/Globulin [Mass ratio] 1.2 {ratio} Normal 0.9-2.4 [facility] Comment on above: Order Comment: 'TROP ' Serial specimen #1, #2 or #3: 1 Performed By: #### L 501.2450, L100.0100, L501.4020, L500.4050 ####[facility] [address] [place], [address] ALK P 87 U/L Normal 45-117 [facility] Comment on above: Order Comment: 'TROP ' Serial specimen #1, #2 or #3: 1 Performed By: #### L 501.2450, L100.0100, L501.4020, L500.4050 ####[facility] [address] [place], [address] ALT [Catalytic activity/Vol] 25 U/L Normal 13-56 [facility] Comment on above: Order Comment: 'TROP ' Serial specimen #1, #2 or #3: 1 Performed By: #### L 501.2450, L100.0100, L501.4020, L500.4050 ####[facility] [address] [place], [address] AST [Catalytic activity/Vol] 15 U/L Normal 15-37 [facility] Comment on above: Order Comment: 'TROP ' Serial specimen #1, #2 or #3: 1 Performed By: #### L 501.2450, L100.0100, L501.4020, L500.4050 ####[facility] [address] [place], [address] Bilirubin [Mass/Vol] 1.30 mg/dL High 0.20-1.00 [facility] Comment on above: Order Comment: 'TROP ' Serial specimen #1, #2 or #3: 1 Result Comment: For patients on eltrombopag therapy, use of Dimension Gregory TBIL is not recommended. Performed By: #### L 501.2450, L100.0100, L501.4020, L500.4050 ####[facility] [address] [place], [address] BUN/CRE 19.1 RATIO Normal 10-20 [facility] Comment on above: Order Comment: 'TROP ' Serial specimen #1, #2 or #3: 1 Performed By: #### L 501.2450, L100.0100, L501.4020, L500.4050 ####[facility] [address] [place], [address] CA,Total 9.5 mg/dL Normal 8.5-10.1 [facility] Comment on above: Order Comment: 'TROP ' Serial specimen #1, #2 or #3: 1 Performed By: #### L 501.2450, L100.0100, L501.4020, L500.4050 ####[facility] [address] [place], [address] Chloride [Moles/Vol] 105 mmol/L Normal 98-107 [facility] Comment on above: Order Comment: 'TROP ' Serial specimen #1, #2 or #3: 1 Performed By: #### L 501.2450, L100.0100, L501.4020, L500.4050 ####[facility] [address] [place], [address] CO2 [Moles/Vol] 17.0 mmol/L Low 21.0-32.0 [facility] Comment on above: Order Comment: 'TROP ' Serial specimen #1, #2 or #3: 1 Performed By: #### L 501.2450, L100.0100, L501.4020, L500.4050 ####[facility] [address] [place], [address] Creatinine [Mass/Vol] 0.94 mg/dL Normal 0.55-1.02 [facility] Comment on above: Order Comment: 'TROP ' Serial specimen #1, #2 or #3: 1 Result Comment: The validity of the calculated GFR GFRAA in patients over70 years has not been determined. Clinical correlation isessential. Performed By: #### L 501.2450, L100.0100, L501.4020, L500.4050 ####[facility] [address] [place], [address] ECRCL 92.29 ml/min Normal [facility] Comment on above: Order Comment: 'TROP ' Serial specimen #1, #2 or #3: 1 Performed By: #### L 501.2450, L100.0100, L501.4020, L500.4050 ####[facility] [address] [place], [address] EST GFR - AA 90 mL/min Normal >60 [facility] Comment on above: Order Comment: 'TROP ' Serial specimen #1, #2 or #3: 1 Result Comment: Afri can Indian GFR Calc Performed By: #### L 501.2450, L100.0100, L501.4020, L500.4050 ####[facility] [address] [place], [address] GAP 14 Normal 5-15 [facility] Comment on above: Order Comment: 'TROP ' Serial specimen #1, #2 or #3: 1 Performed By: #### L 501.2450, L100.0100, L501.4020, L500.4050 ####[facility] [address] [place], [address] GFR/1.73 sq M.predicted among non-blacks MDRD (S/P/Bld) [Vol rate/Area] 74 mL/min/{1.73_m2} Normal >60 [facility] Comment on above: Order Comment: 'TROP ' Serial specimen #1, #2 or #3: 1 Result Comment: Non- GFR Calc Performed By: #### L 501.2450, L100.0100, L501.4020, L500.4050 ####[facility] [address] [place], [address] Globulin (S) [Mass/Vol] 3.5 g/dL Normal 2.2-4.2 [facility] Comment on above: Order Comment: 'TROP ' Serial specimen #1, #2 or #3: 1 Performed By: #### L 501.2450, L100.0100, L501.4020, L500.4050 ####[facility] [address] [place], [address] Glucose [Mass/Vol] 355 mg/dL High 74-106 [facility] Comment on above: Order Comment: 'TROP ' Serial specimen #1, #2 or #3: 1 Result Comment: Gluc ose result greater than or equal to 200 mg/dLsuggests DIABETES MELLITUS per A.D.A. criteria. Performed By: #### L 501.2450, L100.0100, L501.4020, L500.4050 ####[facility] [address] [place], [address] Potassium [Moles/Vol] 3.4 mmol/L Low 3.5-5.1 [facility] Comment on above: Order Comment: 'TROP ' Serial specimen #1, #2 or #3: 1 Performed By: #### L 501.2450, L100.0100, L501.4020, L500.4050 ####[facility] [address] [place], [address] Sodium [Moles/Vol] 136 mmol/L Normal 136-145 [facility] Comment on above: Order Comment: 'TROP ' Serial specimen #1, #2 or #3: 1 Performed By: #### L 501.2450, L100.0100, L501.4020, L500.4050 ####[facility] [address] [place], [address] T PROT 7.6 g/dL Normal 6.4-8.2 [facility] Comment on above: Order Comment: 'TROP ' Serial specimen #1, #2 or #3: 1 Performed By: #### L 501.2450, L100.0100, L501.4020, L500.4050 ####[facility] [address] [place], [address] Urea nitrogen [Mass/Vol] 18 mg/dL Normal 7-18 [facility] Comment on above: Order Comment: 'TROP ' Serial specimen #1, #2 or #3: 1 Performed By: #### L 501.2450, L100.0100, L501.4020, L500.4050 ####[facility] [address] [place], [address] Emergency Department Summary on 06-07-2024 Emergency Department Summary Normal [facility] H AND P Exam - Hospitaliston 06-07-2024 H&P Exam - Hospitalist Normal [facility] L501.4020on 06-07-2024 TROPONIN-I HS 4 pg/mL Normal 3.0-54.0 [facility] Comment on above: Order Comment: 'TROP ' Serial specimen #1, #2 or #3: 1 Result Comment: Plea se Note: New Test Units and Gender Specific Reference Ranges. For more information see Policy Stat Procedure Gregory High Sensitivity Troponin (TNIH) and attachments. Performed By: #### L 501.2450, L100.0100, L501.4020, L500.4050 ####[facility] [address] [place], [address] Lipaseon 06-07-2024 Lipase [Catalytic activity/Vol] 10 U/L Low 13-75 [facility] Comment on above: Order Comment: 'TROP ' Serial specimen #1, #2 or #3: 1 Result Comment: Plea se note:LIPASE revised reference range effective 22.New Lipase methodology. Expected to produce lower valuesthan the previous assay method.NEW Reference Range: 13 - 75 U/L Performed By: #### L 501.2450, L100.0100, L501.4020, L500.4050 ####[facility] [address] [place], [address] ,Urineon 06-07-2024 Beta HCG ( test) Ql (U) Negative Normal [facility] Comment on above: Order Comment: CLEAN CATCH Result Comment: Very dilute urine specimens, as indicated by a low specificgravity, may not contain claim service representative levels of hCG.If is still suspected, a first morning urinespecimen should be collected 48 hours later and tested. Performed By: #### L 400.0001, L400.7600 ####[facility] [address] [place], [address] Urinalysis, Completeon 06-07 BACTERIA 0 SEEN Normal None Seen [facility] Comment on above: Order Comment: CLEAN CATCH Performed By: #### L 400.0001, L400.7600 ####[facility] [address] [place], [address] EPI,SQUAMOUS 0 SEEN Normal 5-10 [facility] Comment on above: Order Comment: CLEAN CATCH Performed By: #### L 400.0001, L400.7600 ####[facility] [address] [place], [address] Mucus Ql (Urine sed) 0 SEEN Normal [facility] Comment on above: Order Comment: CLEAN CATCH Performed By: #### L 400.0001, L400.7600 ####[facility] [address] [place], [address] RBC 0 SEEN Normal 0-5 [facility] Comment on above: Order Comment: CLEAN CATCH Performed By: #### L 400.0001, L400.7600 ####[facility] [address] [place], [address] WBC 0 SEEN Normal 0-5 [facility] Comment on above: Order Comment: CLEAN CATCH Performed By: #### L 400.0001, L400.7600 ####[facility] [address] [place], [address] CNPDanitza 05-16-2024 GIOVANA Telephone (ENDOIN) KATHLEEN VILLA ([id number]) 1995 F CHT Date Time Provider Department [...] pay the $3000,was told to call her online merchandiser for assistance. Re Gonzalez RN 05/17/2024 10:09 AM Signed [facility] 03/12/24 Joshua CAMPA 05/28/24 Josue Pt uses [facility] for supplies Has had loaner pump x3 months through [employer] and now has to return it or pay $3000 out of pocket. Advised pt she has to call [facility] and have them send us [...] me updated if any issues. Jessica Guerrero APRN.GRAIN INSPECTOR Sary PssZelda 05/24/2024 1:01 PM Signed Patient has to reschedule her may appt and will be completely out of her pump supplies before her next June appt. Please advise she needs her pump suppllies Re Gonzalez RN 05/24/2024 1:41 PM Signed Spoke to pt. [facility] 03/12/24 ( we can sent notes over, if needed) NOV 07/19/24 We have not received any new order forms from [facility] or [employer]. Advised pt to reach out. 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 Normal [facility] 36on 05-06-2024 36 Medication: Skyrizi 150mg/ml Dosing Schedule: 150mg every 12 weeks Prior Authorization: Submitted date: 05.06.2024 [place] reference #: [id number] Approval dates: 05.06.2024-08.27.2024 Caitie Clinical Liaison [facility] [phone] Normal [facility] 12 Lead EKGon 04-21-2024 12 Lead EKG Normal [facility] Acetone Serumon 08-25-2024 ACETONE SERUM Negative Normal NEG [facility] Comment on above: Performed By: #### L 500.2500, L501.6900 ####[facility] [address] [place], [address] Basic Metabolic Profile (BMP )on 04-21-2024 BUN/CRE 20.4 RATIO High 10-20 [facility] Comment on above: Performed By: #### L 500.2500, L501.6900 ####[facility] [address] [place], [address] CA,Total 7.3 mg/dL Low 8.5-10.1 [facility] Comment on above: Performed By: #### L 500.2500, L501.6900 ####[facility] [address] [place], [address] Chloride [Moles/Vol] 113 mmol/L High 98-107 [facility] Comment on above: Performed By: #### L 500.2500, L501.6900 ####[facility] [address] [place], [address] CO2 [Moles/Vol] 23.0 mmol/L Normal 21.0-32.0 [facility] Comment on above: Performed By: #### L 500.2500, L501.6900 ####[facility] [address] [place], [address] Creatinine [Mass/Vol] 0.68 mg/dL Normal 0.55-1.02 [facility] Comment on above: Result Comment: The validity of the calculated GFR GFRAA in patients over70 years has not been determined. Clinical correlation isessential. Performed By: #### L 500.2500, L501.6900 ####[facility] [address] [place], [address] ECRCL 127.57 ml/min Normal [facility] Comment on above: Performed By: #### L 500.2500, L501.6900 ####[facility] [address] [place], [address] EST GFR - AA 130 mL/min Normal >60 [facility] Comment on above: Result Comment: Afri can Indian GFR Calc Performed By: #### L 500.2500, L501.6900 ####[facility] [address] [place], [address] GAP 7 Normal 5-15 [facility] Comment on above: Performed By: #### L 500.2500, L501.6900 ####[facility] [address] [place], [address] GFR/1.73 sq M.predicted among non-blacks MDRD (S/P/Bld) [Vol rate/Area] 107 mL/min/{1.73_m2} Normal >60 [facility] Comment on above: Result Comment: Non- GFR Calc Performed By: #### L 500.2500, L501.6900 ####[facility] [address] [place], [address] Glucose [Mass/Vol] 173 mg/dL High 74-106 [facility] Comment on above: Result Comment: Fast ing Glucose result greater than or equal to 126 mg/dLsuggests DIABETES MELLITUS per A.D.A. criteria. Performed By: #### L 500.2500, L501.6900 ####[facility] [address] [place], [address] Potassium [Moles/Vol] 2.7 mmol/L Invalid Interpretation Code 3.5-5.1 [facility] Comment on above: Result Comment: Crit ical Result(s) Called at: 21:44:18 04/21/2024 by: DEX. Results read back by Faith Performed By: #### L 500.2500, L501.6900 ####[facility] [address] [place], [address] Sodium [Moles/Vol] 143 mmol/L Normal 136-145 [facility] Comment on above: Performed By: #### L 500.2500, L501.6900 ####[facility] [address] [place], [address] Urea nitrogen [Mass/Vol] 14 mg/dL Normal 7-18 [facility] Comment on above: Performed By: #### L 500.2500, L501.6900 ####[facility] [address] [place], [address] CBC W/Diff, Automatedon 03-29 Anisocytosis Ql (Bld) RARE Normal [facility] Comment on above: Performed By: #### L 100.0100 ####[facility] [address] [place], [address] PLT EST MOD DEC Normal ADEQ [facility] Comment on above: Performed By: #### L 100.0100 ####[facility] [address] [place], [address] RED CELL MORPH NORM C+C Normal NORM C C [facility] Comment on above: Performed By: #### L 100.0100 ####[facility] [address] [place], [address] Emergency Department Summary on 04-21-2024 Emergency Department Summary Normal [facility] Lipaseon 04-21-2024 Lipase [Catalytic activity/Vol] 14 U/L Normal 13-75 [facility] Comment on above: Result Comment: Sulma schmitz note:LIPASE revised reference range effective 22.New Lipase methodology. Expected to produce lower valuesthan the previous assay method.NEW Reference Range: 13 - 75 U/L Performed By: #### L 500.3400, L501.2450 ####[facility] [address] [place], [address] Liver Profileon 04-21-2024 Albumin [Mass/Vol] 3.0 g/dL Low 3.2-5.0 [facility] Comment on above: Performed By: #### L 500.3400, L501.2450 ####[facility] [address] [place], [address] ALK P 65 U/L Normal 45-117 [facility] Comment on above: Performed By: #### L 500.3400, L501.2450 ####[facility] [address] [place], [address] ALT [Catalytic activity/Vol] 15 U/L Normal 13-56 [facility] Comment on above: Performed By: #### L 500.3400, L501.2450 ####[facility] [address] [place], [address] AST [Catalytic activity/Vol] 10 U/L Low 15-37 [facility] Comment on above: Performed By: #### L 500.3400, L501.2450 ####[facility] [address] [place], [address] Bilirubin [Mass/Vol] 0.40 mg/dL Normal 0.20-1.00 [facility] Comment on above: Result Comment: For patients on eltrombopag therapy, use of Dimension Gregory TBIL is not recommended. Performed By: #### L 500.3400, L501.2450 ####[facility] [address] [place], [address] Bilirubin.direct [Mass/Vol] 0.16 mg/dL Normal 0.00-0.30 [facility] Comment on above: Performed By: #### L 500.3400, L501.2450 ####[facility] [address] [place], [address] Globulin (S) [Mass/Vol] 2.6 g/dL Normal 2.2-4.2 [facility] Comment on above: Performed By: #### L 500.3400, L501.2450 ####[facility] [address] [place], [place], [id number] T PROT 5.6 g/dL Low 6.4-8.2 [facility] Comment on above: Performed By: #### L 500.3400, L501.2450 ####[facility] [address] [place], [place], [id number] ,Serum,hCG Quali.on 04-21-2024 HCG, SERUM QUAL Negative Normal [facility] Comment on above: Performed By: #### L 446.1975 ####[facility] [address] [place], [address] CNOVon 03-12-2024 CNOV Office Visit (ENDOIN ) DAISYKATHLEEN Richter Brynn ([id number]) 1995 F C[facility] Date Time Provider Department [...] 149 Trigly (more content not included)... Normal [facility] HEMOGLOBIN A1C (POC)on 03-12 HbA1c (Bld) [Mass fraction] 8.8 % Abnormal 4.3 - 5.6 % [facility] Comment on above: Location:[address], [place], [place], [address] Point of care (POC) Hemoglobin A1c (HGBA1C) [...] specific diabetes management situations: The POC device substance abuse therapist provides a normal range of 4.2% to 6.5% for the HGBA1C POC test. However, the [employer] guidelines indicate that patients with [...] Interpretation and review of laboratory results Abnormal [facility] CNPNon 03-02-2024 CNPN Telephone (ENDOIN) KATHLEEN VILLA ([id number]) 1995 F CHT Date Time Provider Department [...] - Rash Date Reviewed: 12/13/2023 Reviewed by: Lynn, Jessica, OPERATIONS REPRESENTATIVE.GRAIN INSPECTOR - Fully Assessed Reason for Visit: Forms [...] (post-traumatic stress disorder) [F43.10] 12/25/2012 DVT prophylaxis [[id number]] 12/25/2012 09/04/2013 DISPOSITION AND FOLLOW-UP [V999.01] 12/25/2012 09/04/2013 HTN (hypertension) [I10] Hypertension in , antepartum [O16.9] 09/19/2013 01/08/2014 GBS (group B Streptococcus carrier), +RV cultur*11/11/2013 04/16/2014 [Z34.90] 11/22/2013 04/16/2014 Diabetes mellitus in (HCC) [O24.919] 12/25/2013 04/16/2014 Diabetic ketoacidosis without coma associated w*01/08/2014 02/04/2023 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] 01/08/2014 DVT prophylaxis [[id number]] 02/25/2014 04/16/2014 care and examination [Z39.2] 02/25/2014 [...] Encounter Status:Closed by ESTRELLITA MCCLENDON on 03/05/24 [facility] Dipak 02-14-2024 CNPN Telephone (ENDOIN) KATHLEEN VILLA ([id number]) [address] [facility] Date Time Provider Department 02/14/24 KVNG LEWIS During your visit today, we recorded the following information about you: Jennifer Ramos 02/14/2024 1:51 PM Signed Patient stated that her 630G pump malfunctioned and she had to get a new one. Patient needs to now what settings to put the pump on. Patient can be reached at [phone] Estrellita Mcclendon, RN 02/14/2024 4:43 PM Signed [...] Date Reviewed: 12/13/2023 Reviewed by: Jessica Guerrero APRN.GRAIN INSPECTOR - Fully Assessed Reason for Visit: machine [...] (post-traumatic stress disorder) [F43.10] 12/25/2012 DVT prophylaxis [[id number]] 12/25/2012 09/04/2013 DISPOSITION AND FOLLOW-UP [V999.01] 12/25/2012 09/04/2013 HTN (hypertension) [I10] Hypertension in , antepartum [O16.9] 09/19/2013 01/08/2014 GBS (group B Streptococcus carrier), +RV cultur*11/11/2013 04/16/2014 [Z34.90] 11/22/2013 04/16/2014 Diabetes mellitus in (HCC) [O24.919] 12/25/2013 04/16/2014 Diabetic ketoacidosis without coma associated w*01/08/2014 02/04/2023 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] 01/08/2014 DVT prophylaxis [[id number]] 02/25/2014 04/16/2014 care and examination [Z39.2] 02/25/2014 [...] pain [R10.8 (more content not included)... Normal [facility] CNPNon 02-13-2024 CNPN Telephone (ENDOMN) KATHLEEN VILLA ([id number]) 1995 F CHT Date Time Provider Department [...] MD Clinical Fellow PGY-4 Endocrinology and Metabolism [place] Allergies As of Date: 02/13/2024 Noted Allergy [...] Date Reviewed: 12/13/2023 Reviewed by: Jessica Guerrero APRN.GRAIN INSPECTOR - Fully Assessed Reason for Visit: Medication Problem [65] Returning Patient's Call [[phone]] Visit Diagnoses:Type 1 diabetes mellitus with hyperglycemia, with long-term current use of insulin ([facility]) [E10.65] Insulin pump status [Z96.41] Order(s):insulin lispro [...] (post-traumatic stress disorder) [F43.10] 12/25/2012 DVT prophylaxis [[id number]] 12/25/2012 09/04/2013 DISPOSITION AND FOLLOW-UP [V999.01] 12/25/2012 09/04/2013 HTN (hypertension) [I10] Hypertension in , antepartum [O16.9] 09/19/2013 01/08/2014 GBS (group B Streptococcus carrier), +RV cultur*11/11/2013 04/16/2014 [Z34.90] 11/22/2013 04/16/2014 Diabetes mellitus in (HCC) [O24.919] 12/25/2013 04/16/2014 Diabetic ketoacidosis without coma associated w*01/08/2014 02/04/2023 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] 01/08/2014 DVT prophylaxis [[id number]] 02/25/2014 04/16/2014 care and examination [Z39.2] 02/25/2014 [...] 08/16/2022 Gastro (more content not included)... Normal [facility] CNOVon 12-13-2023 CNOV Office Visit (ENDOIN ) KATHLEEN VILLA ([id number]) 1995 F CHT Date Time Provider Department 12/13/23 4:00 PM JESSICA GUERRERO During your visit today, we recorded the following information about you: Pulse Respiration Blood pressure Weight 80/minute 16/minute 139/87 77.1 kg Jessica Guerrero, OPERATIONS REPRESENTATIVE.GRAIN INSPECTOR 12/13/2023 4:53 PM Signed ENDOCRINOLOGY AND METABOLISM [...] APPENDECTOMY 03/2017 [facility] GRFT W/VALVE REM. VMASI 11/2014 SECTION HX 02/25/2014 amairani 37 weeks [...] Other maternal great grandma I reviewed the Psychiatric Aides Teacher's notes with this visit for vital signs, [...] 1 DM (more content not included)... Normal [facility] HEMOGLOBIN A1C (POC)on 12-12 HbA1c (Bld) [Mass fraction] 7.1 % Abnormal 4.3 - 5.6 % [facility] Absolute lymphocyte countOrd ered By: Lin Johansen [...] [facility] Chloride [Moles/Vol] 106 mmol/L 98-107 [facility] Eosinophils/100 WBC (Bld) 0.7 % 0-5 [facility] Glucose [Mass/Vol] 255 mg/dL 74-106 [facility] Comment on above: Glucose result great er than or equal to 200 mg/dLsuggests DIABETES MELLITUS per A.D.A. criteria. Hemoglobin (Bld) [Mass/Vol] 14.3 g/dL 12.0-15.0 [facility] Monocytes/100 WBC (Bld) 3.7 % 0-10 [facility] Neutrophils (Bld) [#/Vol] 9.8 10*3/uL 2.0-7.7 [facility] Neutrophils/100 WBC (Bld) 76.5 % 47-70 [facility] Potassium [Moles/Vol] 4.3 mmol/L 3.5-5.1 [facility] Sodium [Moles/Vol] 137 mmol/L 136-145 [facility] WBC (Bld) [#/Vol] 12.8 10*3/uL 4.4-11.0 [facility] Determination of erythrocyte mean corpuscular volume (MCV)Ordered [...] 10-25-2023 Amphetamines Ql (U) Negative <1000 ng/mL [facility] Benzodiazepines Ql (U) Negative < 200 ng/mL [facility] Cannabinoids Screen Ql (U) Positive < 50 ng/mL [facility] Cocaine Ql (U) Negative < 300 ng/mL [facility] Opiates Ql (U) Negative < 300 ng/mL [facility] Laboratory - Hematology and Cell countsOrdered By: Lin Johansen on 10-25-2023 MCH (RBC) [Entitic mass] 28.7 pg 27.0-32.0 [facility] MCHC (RBC) [Mass/Vol] 32.0 g/dL 32-36 [facility] Nucleated RBC/100 WBC (Bld) [Ratio] 0 % [...] Calc Ethyl Alcohol Level < 3.0 mg/dL [facility] Comment on above: The serum:whole bloo d ethanol ratio is approximately 1.14and varies slightly with hematocrit. Medical Alcohol reference interval and critical value innon-tolerant individuals; 50 - 100 Impairment 100 Intoxication 100 - 250 Severe Poisoning 250 - 400 Deep/possible fatal coma MDMA (Ecstasy) Screen Negative < 500 ng/mL [facility] Urine Barbiturates Screen Negative < 200 [...] Methadone Screen Negative < 300 ng/mL [facility] RBC Auto (Bld) [#/Vol]Ordere d By: Lin Johansen on 10-25-2023 RBC (Bld) [#/Vol] 4.99 10*6/uL 4.2-5.4 [facility] Serum or plasma calcium milli urement (mass/volume)Ordered By: Lin Johansen on 10-25-2023 Calcium [Mass/Vol] 9.0 mg/dL 8.5-10.1 [facility] Serum or plasma choriogonado tropin detectionOrdered By: Lin Johansen on 10-25-2023 HCG ( test) Ql Negative [facility] Serum or plasma creatinine m easurement (mass/volume)Ordered By: Lin Johansen on 10-25-2023 Creatinine [Mass/Vol] 0.79 mg/dL 0.55-1.02 [facility] Comment on above: The validity of the calculated GFR & GFRAA in patients over 70 years has not been determined. Clinical correlation is essential. Serum or plasma urea nitroge n measurement (mass/volume)Ordered By: Lin Johansen on 10-25-2023 Urea nitrogen [Mass/Vol] 17 mg/dL 7-18 [facility] Thin prep Papanicolaou smear with manual screeningOrdered By: Lin Johasnen on 10-25-2023 Thin prep Papanicolaou smear with manual screening 60 mg/dL 74-106 [facility] Comment on above: MANAGEMENT OF PATIEN T CARE PER NURSING PROTOCOL Thin prep Papanicolaou smear with manual screening 8 5-15 [facility] Urine phencyclidine (PCP) de tectionOrdered By: Lin Johansen on 10-25-2023 Phencyclidine Ql (U) Negative < 25 ng/mL [facility] Absolute lymphocyte countOrd ered By: Vita Jefferson [...] [facility] Chloride [Moles/Vol] 110 mmol/L 98-107 [facility] Eosinophils/100 WBC (Bld) 1.0 % 0-5 [facility] Glucose [Mass/Vol] 227 mg/dL 74-106 [facility] Comment on above: Glucose result great er than or equal to 200 mg/dLsuggests DIABETES MELLITUS per A.D.A. criteria. Hemoglobin (Bld) [Mass/Vol] 12.0 g/dL 12.0-15.0 [facility] Monocytes/100 WBC (Bld) 6.0 % 0-10 [facility] Neutrophils (Bld) [#/Vol] 5.3 10*3/uL 2.0-7.7 [facility] Neutrophils/100 WBC (Bld) 59.5 % 47-70 [facility] Potassium [Moles/Vol] 4.1 mmol/L 3.5-5.1 [facility] Sodium [Moles/Vol] 138 mmol/L 136-145 [facility] WBC (Bld) [#/Vol] 8.8 10*3/uL 4.4-11.0 [facility] Determination of erythrocyte mean corpuscular volume (MCV)Ordered [...] Hospital MCHC (RBC) [Mass/Vol] 33.0 g/dL 32-36 [facility] Nucleated RBC/100 WBC (Bld) [Ratio] 0 % [...] 10-18-2023 RBC (Bld) [#/Vol] 4.07 10*6/uL 4.2-5.4 [facility] Serum or plasma calcium milli urement (mass/volume)Ordered By: Vita Jefferson on 10-18-2023 Calcium [Mass/Vol] 7.6 mg/dL 8.5-10.1 [facility] Serum or plasma creatinine m easurement (mass/volume)Ordered By: Vita Jefferson on 10-18-2023 Creatinine [Mass/Vol] 0.67 mg/dL 0.55-1.02 [facility] Comment on above: The validity of the [...] [facility] Chloride [Moles/Vol] 98 mmol/L 98-107 [facility] Eosinophils/100 WBC (Bld) 0.1 % 0-5 [facility] Glucose [Mass/Vol] 534 mg/dL 74-106 [facility] Comment on above: Critical Result(s) C alled [...] [facility] Potassium [Moles/Vol] 4.8 mmol/L 3.5-5.1 [facility] Sodium [Moles/Vol] 132 mmol/L 136-145 [facility] WBC (Bld) [#/Vol] 13.6 10*3/uL 4.4-11.0 [facility] Determination of erythrocyte mean corpuscular volume (MCV)Ordered [...] Hospital MCHC (RBC) [Mass/Vol] 32.0 g/dL 32-36 [facility] Nucleated RBC/100 WBC (Bld) [Ratio] 0 % [...] 10-17-2023 RBC (Bld) [#/Vol] 4.71 10*6/uL 4.2-5.4 [facility] Serum or plasma acetone milli urement (mass/volume)Ordered By: Alexandro Garces on 10-17-2023 Acetone [Mass/Vol] MODERATE NEG [facility] Serum or plasma calcium milli urement (mass/volume)Ordered By: Alexandro Garces on 10-17-2023 Calcium [Mass/Vol] 9.1 mg/dL 8.5-10.1 [facility] Serum or plasma creatinine m easurement (mass/volume)Ordered By: Alexandro Garces on 10-17-2023 Creatinine [Mass/Vol] 1.18 mg/dL 0.55-1.02 [facility] Comment on above: The validity of the [...] [facility] Chloride [Moles/Vol] 106 mmol/L 98-107 [facility] Eosinophils/100 WBC (Bld) 0.2 % 0-5 [facility] Glucose [Mass/Vol] 331 mg/dL 74-106 [facility] Comment on above: Glucose result great er than or equal to 200 mg/dLsuggests DIABETES MELLITUS per A.D.A. criteria. Hemoglobin (Bld) [Mass/Vol] 13.2 g/dL 12.0-15.0 [facility] Monocytes/100 WBC (Bld) 12.0 % 0-10 [facility] Neutrophils (Bld) [#/Vol] 4.2 10*3/uL 2.0-7.7 [facility] Neutrophils/100 WBC (Bld) 70.4 % 47-70 [facility] Potassium [Moles/Vol] 3.7 mmol/L 3.5-5.1 [facility] Sodium [Moles/Vol] 135 mmol/L 136-145 [facility] WBC (Bld) [#/Vol] 6.0 10*3/uL 4.4-11.0 [facility] Blood platelet adequacy dete ction by light microscopyOrdered By: Olvin Ibarra on 09-25-2023 Platelets LM Ql (Bld) MOD DEC ADEQ [facility] Determination of erythrocyte mean corpuscular volume (MCV)Ordered [...] granulocytes/100 WB C Auto (Bld)Ordered By: Olvin Ibrara on 09-25-2023 Immature granulocytes/100 WBC (Bld) 1.300 [...] Hospital MCHC (RBC) [Mass/Vol] 31.7 g/dL 32-36 [facility] Nucleated RBC/100 WBC (Bld) [Ratio] 0 % [...] 09-25-2023 RBC (Bld) [#/Vol] 4.61 10*6/uL 4.2-5.4 [facility] Serum or plasma calcium milli urement (mass/volume)Ordered By: Olvin Ibarra on 09-25-2023 Calcium [Mass/Vol] 8.4 mg/dL 8.5-10.1 [facility] Serum or plasma creatinine m easurement (mass/volume)Ordered By: Olvin Ibarra on 09-25-2023 Creatinine [Mass/Vol] 0.90 mg/dL 0.55-1.02 [facility] Comment on above: The validity of the [...] 09-20-2023 Basophil percentage 0 SEEN /hpf 0-5 [facility] Basophils/100 WBC (Bld) 0.4 % 0-1 [facility] Chloride [Moles/Vol] 102 mmol/L 98-107 [facility] Eosinophils/100 WBC (Bld) 0.0 % 0-5 [facility] Glucose [Mass/Vol] 534 mg/dL 74-106 [facility] Comment on above: Critical Result(s) C alled [...] [facility] Potassium [Moles/Vol] 4.9 mmol/L 3.5-5.1 [facility] Sodium [Moles/Vol] 132 mmol/L 136-145 [facility] WBC (Bld) [#/Vol] 16.2 10*3/uL 4.4-11.0 [facility] Bilirubin Test strip Ql (U)O rdered By: Rm Chirinos on 09-20-2023 Bilirubin Ql (U) Negative Negative [facility] CO2 (BldV) [Moles/Vol]Ordere d By: Rm Chirinos on 09-20-2023 CO2 [Moles/Vol] 22 mmol/L 23-33 [facility] Determination of erythrocyte mean corpuscular volume (MCV)Ordered By: Rm Chirinso on 09-20-2023 MCV (RBC) [Entitic vol] 90.3 [...] Hospital MCHC (RBC) [Mass/Vol] 32.1 g/dL 32-36 [facility] Nucleated RBC/100 WBC (Bld) [Ratio] 0 % 0-5 [facility] Platelets (Bld) [#/Vol] 111 10*3/uL 150-450 [facility] Mucus LM Ql (Urine sed)Order ed By: Rm Chirinos on 09-20-2023 Mucus Ql (Urine sed) 0 SEEN /hpf [facility] Nitrite Test strip Ql (U)Ord ered By: Rm Chirinos on 09-20-2023 Nitrite Ql (U) Negative Negative [facility] No Panel InformationOrdered By: Rm Chirinos on 09-20-2023 Blood Gas Sample Site Not entered [facility] Blood Gas Specimen Type ISABELLE [facility] Oxygen Delivery Device Room Air [facility] Urine RBC 0 SEEN /hpf 0-5 [...] 09-20-2023 RBC (Bld) [#/Vol] 4.63 10*6/uL 4.2-5.4 [facility] Serum or plasma calcium milli urement (mass/volume)Ordered By: Rm Chirinos on 09-20-2023 Calcium [Mass/Vol] 8.8 mg/dL 8.5-10.1 [facility] Serum or plasma creatinine m easurement (mass/volume)Ordered By: Rm Chirinos on 09-20-2023 Creatinine [Mass/Vol] 1.00 mg/dL 0.55-1.02 [facility] Comment on above: The validity of the [...] 09-20-2023 Urobilinogen Ql (U) Normal mg/dl Normal [facility] Venous blood bicarbonate penelope surementOrdered By: Rm [...] 09-06-2023 Basophil percentage 0-5 SEEN /hpf 0-5 [facility] Basophils/100 WBC (Bld) 0.4 % 0-1 [facility] Bilirubin [Mass/Vol] 0.50 mg/dL 0.20-1.00 [facility] Comment on above: For patients on eltr ombopag therapy, use of Dimension Gregory TBIL is not recommended. Chloride [Moles/Vol] 111 mmol/L 98-107 [facility] Eosinophils/100 WBC (Bld) 0.7 % 0-5 [facility] Glucose [Mass/Vol] 101 mg/dL 74-106 [facility] Comment on above: Fasting Glucose resu lt from 100 to 125 mg/dL suggests IMPAIRED HOMEOSTASIS per A.D.A. criteria. Neutrophils (Bld) [#/Vol] 6.5 10*3/uL 2.0-7.7 [facility] Neutrophils/100 WBC (Bld) 67.1 % 47-70 [facility] Potassium [Moles/Vol] 3.9 mmol/L 3.5-5.1 [facility] Protein [Mass/Vol] 6.8 g/dL 6.4-8.2 [facility] Sodium [Moles/Vol] 142 mmol/L 136-145 [facility] WBC (Bld) [#/Vol] 9.6 10*3/uL 4.4-11.0 [facility] Beta hCG serum qualOrdered B y: Greg Philip on 09-06-2023 Beta HCG ( test) Ql Negative [facility] Bilirubin Test strip Ql (U)O rdered By: Greg Philip on 09-06-2023 Bilirubin Ql (U) Negative Negative [facility] Blood erythrocytes count (nu mber/volume)Ordered By: Greg Philip on 09-06-2023 RBC (Bld) [#/Vol] 4.34 10*6/uL 4.2-5.4 [facility] Blood hemoglobin measurement (mass/volume)Ordered By: Greg Philip [...] 09-06-2023 MCHC (RBC) [Mass/Vol] 32.2 g/dL 32-36 [facility] Mucus LM Ql (Urine sed)Order ed By: Greg Philip on 09-06-2023 Mucus Ql (Urine sed) 1+ /hpf [facility] Nitrite Test strip Ql (U)Ord ered By: [...] on 09-06-2023 Albumin [Mass/Vol] 3.6 g/dL 3.2-5.0 [facility] Serum or plasma albumin/glob ulin mass ratioOrdered By: Greg Philip on 09-06-2023 Albumin/Globulin [Mass ratio] 1.1 {ratio} 0.9-2.4 [facility] Serum or plasma calcium milli urement (mass/volume)Ordered By: Greg Philip on 09-06-2023 Calcium [Mass/Vol] 8.5 mg/dL 8.5-10.1 [facility] Serum or plasma creatinine m easurement (mass/volume)Ordered By: Greg Philip on 09-06-2023 Creatinine [Mass/Vol] 0.66 mg/dL 0.55-1.02 [facility] Comment on above: The validity of the [...] 09-06-2023 Urobilinogen Ql (U) 1 mg/dl Normal [facility] Absolute lymphocyte countOrd ered By: Marc Carl on 08-22-2023 Lymphocytes Auto (Unsp spec) [#/Vol] 2.29 10*3/uL 0.83-4.51 [facility] Basophil percentageOrdered B y: Marc Carl on 08-22-2023 Basophil percentage 0 SEEN /hpf 0-5 [facility] Basophils/100 WBC (Bld) 0.6 % 0-1 [facility] Bilirubin [Mass/Vol] 0.50 mg/dL 0.20-1.00 [facility] Comment on above: For patients on eltr ombopag therapy, use of Dimension Gregory TBIL is not recommended. Chloride [Moles/Vol] 106 mmol/L 98-107 [facility] Eosinophils/100 WBC (Bld) 0.9 % 0-5 [facility] Glucose [Mass/Vol] 397 mg/dL 74-106 [facility] Comment on above: Glucose result great er than or equal to 200 mg/dLsuggests DIABETES MELLITUS per A.D.A. criteria. Neutrophils (Bld) [#/Vol] 4.8 10*3/uL 2.0-7.7 [facility] Neutrophils/100 WBC (Bld) 60.5 % 47-70 [facility] Potassium [Moles/Vol] 4.1 mmol/L 3.5-5.1 [facility] Protein [Mass/Vol] 6.6 g/dL 6.4-8.2 [facility] Sodium [Moles/Vol] 138 mmol/L 136-145 [facility] WBC (Bld) [#/Vol] 8.0 10*3/uL 4.4-11.0 [facility] Bilirubin Test strip Ql (U)O rdered By: Marc Carl on 08-22-2023 Bilirubin Ql (U) Negative Negative [facility] Blood erythrocytes count (nu mber/volume)Ordered By: Marc Carl on 08-22-2023 RBC (Bld) [#/Vol] 4.04 10*6/uL 4.2-5.4 [facility] Blood hemoglobin measurement (mass/volume)Ordered By: Marc Carl [...] on 08-22-2023 Glucose [Mass/Vol] 207 mg/dL 74-106 [facility] Comment on above: MANAGEMENT OF PATIEN T [...] 08-22-2023 MCHC (RBC) [Mass/Vol] 31.1 g/dL 32-36 [facility] Mucus LM Ql (Urine sed)Order ed By: Marc Carl on 08-22-2023 Mucus Ql (Urine sed) 0 SEEN /hpf [facility] Nitrite Test strip Ql (U)Ord ered By: [...] on 08-22-2023 Albumin [Mass/Vol] 3.3 g/dL 3.2-5.0 [facility] Serum or plasma albumin/glob ulin mass ratioOrdered By: Marc Carl on 08-22-2023 Albumin/Globulin [Mass ratio] 1.0 {ratio} 0.9-2.4 [facility] Serum or plasma calcium milli urement (mass/volume)Ordered By: Marc Carl on 08-22-2023 Calcium [Mass/Vol] 8.4 mg/dL 8.5-10.1 [facility] Serum or plasma creatinine m easurement (mass/volume)Ordered By: Marc Carl on 08-22-2023 Creatinine [Mass/Vol] 0.90 mg/dL 0.55-1.02 [facility] Comment on above: The validity of the [...] 08-22-2023 Urobilinogen Ql (U) Normal mg/dl Normal [facility] Basophil percentageOrdered B y: Dangelo Encarnacion on 08-10-2023 Chloride [Moles/Vol] 109 mmol/L 98-107 [facility] Glucose [Mass/Vol] 195 mg/dL 74-106 [facility] Comment on above: Fasting Glucose resu lt greater than or equal to 126 mg/dL suggests DIABETES MELLITUS per A.D.A. criteria. Potassium [Moles/Vol] 3.7 mmol/L 3.5-5.1 [facility] Sodium [Moles/Vol] 139 mmol/L 136-145 [facility] WBC (Bld) [#/Vol] 8.5 10*3/uL 4.4-11.0 [facility] Blood erythrocytes count (nu mber/volume)Ordered By: Dangelo Encarnacion on 08-10-2023 RBC (Bld) [#/Vol] 4.50 10*6/uL 4.2-5.4 [facility] Blood hemoglobin measurement (mass/volume)Ordered By: Dangelo Encarnacion [...] on 08-10-2023 Glucose [Mass/Vol] 208 mg/dL 74-106 [facility] Comment on above: MANAGEMENT OF PATIEN T [...] 08-10-2023 MCHC (RBC) [Mass/Vol] 32.7 g/dL 32-36 [facility] No Panel InformationOrdered By: Dangelo Encarnacion on [...] on 08-10-2023 Calcium [Mass/Vol] 8.0 mg/dL 8.5-10.1 [facility] Serum or plasma creatinine m easurement (mass/volume)Ordered By: Dangelo Encarnacion on 08-10-2023 Creatinine [Mass/Vol] 0.58 mg/dL 0.55-1.02 [facility] Comment on above: The validity of the [...] on 08-07-2023 Lactate [Moles/Vol] 2.2 mmol/L 0.4-2.0 [facility] Comment on above: Critical Result(s) C alled at: 06:54:28 08/07/2023 by: Reid Rogers. Colin Hopkins RN (ICU). Results read back by same. HCO3 (BldA) [Moles/Vol]Order ed By: Vamsi Lewis on 08-07-2023 HCO3 (Bld) [Moles/Vol] 12 mmol/L 22- [facility] - Chemistry and C hemistry - challengeOrdered By: Vamsi Lewis on 08-07-2023 CO2 [Moles/Vol] 13 mmol/L 23-33 [facility] Magnesium [Mass/Vol] 1.8 mg/dL 1.6-2.6 [facility] Comment on above: Slight Hemolysis, Re sult may be falsely increased. No Panel InformationOrdered By: Vasmi Lewis on 08-07-2023 Bed Mix Venous Bld PCO2 at Pat Temp 28.0 mmHg 41-51 [facility] Blood Gas Oxygen Percent 21.0 [facility] Blood Gas Sample Site Not entered [facility] Blood Gas Specimen Type ISABELLE [facility] Oxygen Delivery Device Not entered [facility] Venous Blood Base Excess -16 mmol/L [...] Lewis on 08-07-2023 Acetone [Mass/Vol] MODERATE NEG [facility] Vital signsOrdered By: Vamsi Lewis on 08-07-2023 [...] [facility] Chloride [Moles/Vol] 101 mmol/L 98-107 [facility] Eosinophils/100 WBC (Bld) 0.0 % 0-5 [facility] Glucose [Mass/Vol] 548 mg/dL 74-106 [facility] Comment on above: Critical Result(s) C alled at: 23:51:02 08/06/2023 by: Jay Hill. colin Castro (RN) (ED) Results read back by same.Glucose result greater than or equal to 200 mg/dLsuggests DIABETES MELLITUS per A.D.A. criteria. Lactate [Moles/Vol] 4.4 mmol/L 0.4-2.0 [facility] Comment on above: Critical Result(s) C alled at: 23:51:02 08/06/2023 by: Jay Hill. to Matthew AcuñaRN) (ED) Results read back by same. Neutrophils (Bld) [#/Vol] 18.8 10*3/uL 2.0-7.7 [facility] Neutrophils/100 WBC (Bld) 92.7 % 47-70 [facility] Potassium [Moles/Vol] 4.8 mmol/L 3.5-5.1 [facility] Sodium [Moles/Vol] 132 mmol/L 136-145 [facility] WBC (Bld) [#/Vol] 20.3 10*3/uL 4.4-11.0 [facility] Basophil percentage 0 SEEN /hpf 0-5 [facility] Basophil percentageOrdered B y: Juan Marquez on 08-06-2023 Basophils/100 WBC (Bld) 0.2 % 0-1 [facility] Bilirubin [Mass/Vol] 0.70 mg/dL 0.20-1.00 [facility] Comment on above: For patients on eltr ombopag therapy, use of Dimension Gregory TBIL is not recommended. Chloride [Moles/Vol] 108 mmol/L 98-107 [facility] Eosinophils/100 WBC (Bld) 0.1 % 0-5 [facility] Glucose [Mass/Vol] 69 mg/dL 74-106 [facility] Neutrophils (Bld) [#/Vol] 19.2 10*3/uL 2.0-7.7 [facility] Neutrophils/100 WBC (Bld) 87.7 % 47-70 [facility] Potassium [Moles/Vol] 3.3 mmol/L 3.5-5.1 [facility] Protein [Mass/Vol] 7.5 g/dL 6.4-8.2 [facility] Sodium [Moles/Vol] 139 mmol/L 136-145 [facility] WBC (Bld) [#/Vol] 21.9 10*3/uL 4.4-11.0 [facility] Beta hCG serum qualOrdered B y: Juan Marquez on 08-06-2023 Beta HCG ( test) Ql Negative [facility] Bilirubin Test strip Ql (U)O rdered By: Lul Singh on 08-06-2023 Bilirubin Ql (U) Negative Negative [facility] Blood erythrocytes count (nu mber/volume)Ordered By: Lul Singh on 08-06-2023 RBC (Bld) [#/Vol] 4.35 10*6/uL 4.2-5.4 [facility] Blood erythrocytes count (nu mber/volume)Ordered By: Juan Marquez on 08-06-2023 RBC (Bld) [#/Vol] 5.03 10*6/uL 4.2-5.4 [facility] Blood hemoglobin measurement (mass/volume)Ordered By: Lul Singh [...] on 08-06-2023 Glucose [Mass/Vol] 397 mg/dL 74-106 [facility] Comment on above: MANAGEMENT OF PATIEN T CARE PER NURSING PROTOCOL HCO3 (BldA) [Moles/Vol]Order ed By: Lul Singh on 08-06-2023 HCO3 (Bld) [Moles/Vol] 12 mmol/L 22-26 [facility] Hematocrit Auto (Bld) [Volum e fraction]Ordered [...] VALUE *HCRI TICAL VALUE VERIFIED. CALLED TO HSPVPF75/11/23 0049 Jay Hill.RESULTS READ BACK BY SAME. Laboratory - Chemistry and C hemistry - challengeOrdered By: Lul Singh on 08-06-2023 CO2 [Moles/Vol] 13 mmol/L 23-33 [facility] CO2 [Moles/Vol] 14.0 mmol/L 21.0-32.0 [facility] Magnesium [Mass/Vol] 2.0 mg/dL 1.6-2.6 [facility] Urea nitrogen/Creatinine [Mass ratio] 16.1 mg/mg 10- [...] on 08-06-2023 MCHC (RBC) [Mass/Vol] 31.1 g/dL [facility] Comment on above: Delta: 32.9 on 08/06 [facility] Auto (RBC) [Mass/Vol]Or dered By: Juan Marquez on 08-06-2023 MCHC (RBC) [Mass/Vol] 32.9 g/dL [facility] Mucus LM Ql (Urine sed)Order ed By: Lul Singh on 08-06-2023 Mucus Ql (Urine sed) 0 SEEN /hpf [facility] Nitrite Test strip Ql (U)Ord ered By: Lul Singh on 08-06-2023 Nitrite Ql (U) Negative Negative [facility] No Panel InformationOrdered By: Lul Singh on 08-06-2023 Bed Mix Venous Bld PCO2 at Pat Temp 22.9 mmHg 41-51 [facility] Blood Gas Sample Site Not entered [facility] Blood Gas Specimen Type ISABELLE [facility] Oxygen Delivery Device Room Air [facility] Venous Blood Base Excess -14 mmol/L [...] Singh on 08-06-2023 Acetone [Mass/Vol] SMALL NEG [facility] Serum or plasma albumin milli urement (mass/volume)Ordered By: Juan Marquez on 08-06-2023 Albumin [Mass/Vol] 3.9 g/dL 3.2-5.0 [facility] Serum or plasma albumin/glob ulin mass ratioOrdered By: Juan Marquez on 08-06-2023 Albumin/Globulin [Mass ratio] 1.1 {ratio} 0.9-2.4 [facility] Serum or plasma calcium milli urement (mass/volume)Ordered By: Lul Singh on 08-06-2023 Calcium [Mass/Vol] 9.1 mg/dL 8.5-10.1 [facility] Serum or plasma calcium milli urement (mass/volume)Ordered By: Juan Marquez on 08-06-2023 Calcium [Mass/Vol] 9.6 mg/dL 8.5-10.1 [facility] Serum or plasma creatinine m easurement (mass/volume)Ordered By: Lul Singh on 08-06-2023 Creatinine [Mass/Vol] 1.18 mg/dL 0.55-1.02 [facility] Comment on above: The validity of the calculated GFR & GFRAA in patients over 70 years has not been determined. Clinical correlation is essential. Serum or plasma creatinine m easurement (mass/volume)Ordered By: Juan Marquez on 08-06-2023 Creatinine [Mass/Vol] 0.80 mg/dL 0.55-1.02 [facility] Comment on above: The validity of the [...] 08-06-2023 Urobilinogen Ql (U) Normal mg/dl Normal [facility] Vital signsOrdered By: Partha Singh on 08-06-2023 Oxygen saturation in Blood 89 % 50-70 [facility] pH measurementOrdered By: Yarelis Singh on 08-06-2023 pH (Unsp spec) 7.34 [pH] 7.32-7.42 [facility] CBC panel Auto (Bld)on 07-12 Erythrocyte distribution width (RBC) [Ratio] 13.3 % Normal 11.5-15.0 [facility] Comment on above: Order Comment: Speci men Type: BLOOD SPECIMEN Ordering Facility: [facility] Address: [address] [id number] Performed By: #### 3 1201-7, 5195-3, 43261-2, SYPH #### [facility] CLIA [id number] [address] [place] [address] [place] Hematocrit (Bld) [Volume fraction] 44.2 % Normal 36.0-46.0 [facility] Comment on above: Order Comment: Speci men Type: BLOOD SPECIMEN Ordering Facility: [facility] Address: [address] [id number] Performed By: #### 3 1201-7, 5195-3, 72364-4, SYPH #### [facility] CLIA [id number] [address] [place], [place] [id number] [place] Hemoglobin (Bld) [Mass/Vol] 14.8 g/dL Normal 11.5-15.5 [facility] Comment on above: Order Comment: Speci men Type: BLOOD SPECIMEN Ordering Facility: [facility] Address: [address] [place] [address] Performed By: #### 3 1201-7, 5194-3, 49117-8, SYPH #### [facility] CLIA [id number] [address] [place] [address] [place] MCH (RBC) [Entitic mass] 29.4 pg Normal 26.0-34.0 [facility] Comment on above: Order Comment: Speci men Type: BLOOD SPECIMEN Ordering Facility: [facility] Address: [address] [place] [address] Performed By: #### 3 120-7, 3, , SYPH #### [facility] CLIA [id number] [address] [place] [address] [place] MCHC (RBC) [Mass/Vol] 33.5 g/dL Normal 30.5-36.0 [facility] Comment on above: Order Comment: Speci men Type: BLOOD SPECIMEN Ordering Facility: [facility] Address: [address] [place] [address] Performed By: #### 3 1201-7, 5194-3, , SYPH #### [facility] CLIA [id number] [address] [place] [address] [place] MCV (RBC) [Entitic vol] 87.7 fL Normal 80.0-100.0 [facility] Comment on above: Order Comment: Speci men Type: BLOOD SPECIMEN Ordering Facility: [facility] Address: [address] [place] [address] Performed By: #### 3 1201-7, 5194-3, 13169-1, SYPH #### [facility] CLIA [id number] [address] [place] [id number] [place] Nucleated RBC (Bld) [#/Vol] 10*3/uL Normal <0.01 [facility] Comment on above: Order Comment: Speci men Type: BLOOD SPECIMEN Ordering Facility: [facility] Address: [address] [place] [address] Performed By: #### 3 1201-7, 5195-3, 58345-9, SYPH #### [facility] CLIA [id number] [address] [place] [address] [place] Platelet mean volume (Bld) [Entitic vol] 13.3 fL High 9.0-12.7 [facility] Comment on above: Order Comment: Speci men Type: BLOOD SPECIMEN Ordering Facility: [facility] Address: [address] [place] [address] Performed By: #### 3 1201-7, 5195-3, 19614-0, SYPH #### [facility] CLIA [id number] [address] [place] [address] [place] Platelets (Bld) [#/Vol] 111 10*3/uL Low 150-400 [facility] Comment on above: Order Comment: Speci men Type: BLOOD SPECIMEN Ordering Facility: [facility] Address: [address] [place] [address] Result Comment: No c lot detected. Performed By: #### 3 1201-7, 5195-3, 84613-7, SYPH #### [facility] CLIA [id number] [address] [place] [address] [place] RBC (Bld) [#/Vol] 5.04 10*6/uL Normal 3.90-5.20 [facility] Comment on above: Order Comment: Speci men Type: BLOOD SPECIMEN Ordering Facility: [facility] Address: [address] [place] [address] Performed By: #### 3 1201-7, 5195-3, 02490-2, SYPH #### [facility] CLIA [id number] [address] [place] [address] [place] WBC (Bld) [#/Vol] 11.34 10*3/uL High 3.70-11.00 [facility] Comment on above: Order Comment: Speci men Type: BLOOD SPECIMEN Ordering Facility: [facility] Address: [address] [place], [place] [address] [phone] Performed By: #### 3 1201-7, 5195-3, 45330-3, [facility] #### [facility] CLIA [id number] [address] [id number] [place] CTA ABD/PEL W IVCONon 2022 CTA ABD/PEL W IVCON * * *Final Report* * * DATE OF EXAM: Jul 12 2023 10:08AM [facility] 0311 - CTA ABD/PEL W IVCON [...] aorta without acute aortic pathology. Dictated by Field Checker: Dutch Aguilar DO I, Valdo Islas MD, have supervised the procedure and/or image review, and agree with the above interpretation and report. Steward/Stewardess Economy Class: CONCHITA Transcribe Date/Time: Jul 12 2023 10:10A Dictated by : DUTCH AGUILAR DO This examination was interpreted and the report reviewed and electronically signed by: VALDO ISLAS MD on Jul 12 2023 2:59PM EST [id number] Normal [facility] CTA CHEST (GATED) WO/W IVCON on 07-12-2023 CTA CHEST (GATED) WO/W IVCON * * *Final Report* * * DATE OF EXAM: Jul 12 2023 10:08AM [facility] 0126 - CTA CHEST (GATED) WO/W [...] aorta without acute aortic pathology. Dictated by Field Checker: Dutch Aguilar DO I, Valdo Islas MD, have supervised the procedure and/or image review, and agree with the above interpretation and report. Steward/Stewardess Economy Class: PSCB Transcribe Date/Time: Jul 12 2023 10:10A Dictated by : DUTCH AGUILAR DO This examination was interpreted and the report reviewed and electronically signed by: VALDO ISLAS MD on Jul 12 2023 2:59PM EST [id number] Normal [facility] Comprehensive metabolic 2000 panelon 07-12-2023 Albumin [Mass/Vol] 3.6 g/dL Normal 3.2-5.0 [facility] Comment on above: Order Comment: Jon russ Type: BLOOD SPECIMENOrdering Facility: [facility] Address: [address] [place] [address] Performed By: #### 2 4323-8, ####[facility] [id number] [place] [address] [place] ALP [Catalytic activity/Vol] 80 U/L Normal 45-117 [facility] Comment on above: Order Comment: Jon russ Type: BLOOD SPECIMENOrdering Facility: [facility] Address: [address] [place] [address] Performed By: #### 2 4323-8, ####[facility] [id number] [address] [place] ALT [Catalytic activity/Vol] 74 U/L High 13-61 [facility] Comment on above: Order Comment: Jon russ Type: BLOOD SPECIMENOrdering Facility: [facility] Address: [address] [place] [address] Result Comment: Resu lts may be falsely depressed after the administration of Sulfasalazine and/or Sulfapyridine. Performed By: #### 2 4323-8, ####[facility] [id number] [address] [id number] [place] Anion gap [Moles/Vol] 9 mmol/L Normal 5-16 [facility] Comment on above: Order Comment: Speci men Type: BLOOD SPECIMENOrdering Facility: [facility] Address: [address] [place] [address] Performed By: #### 2 4323-8, ####[facility] [id number] [address] [place] [id number] [place] AST [Catalytic activity/Vol] 44 U/L High 8-34 [facility] Comment on above: Order Comment: Speci men Type: BLOOD SPECIMENOrdering Facility: [facility] Address: [address] [place] [address] Result Comment: Resu lts may be falsely depressed after the administration of Sulfasalazine and/or Sulfapyridine. Performed By: #### 2 4323-8, ####[facility] [id number] [place] [address] [place] Bilirubin [Mass/Vol] 0.4 mg/dL Normal 0.2-1.0 [facility] Comment on above: Order Comment: Speci men Type: BLOOD SPECIMENOrdering Facility: [facility] Address: [address] [place] [address] Performed By: #### 2 4323-8, ####[facility] [id number] [address] [place] [address] [place] Calcium [Mass/Vol] 9.2 mg/dL Normal 8.5-10.5 [facility] Comment on above: Order Comment: Speci men Type: BLOOD SPECIMENOrdering Facility: [facility] Address: [address] [place] [address] Performed By: #### 2 4323-8, ####[facility] [id number] [address] [place] [address] [place] Chloride [Moles/Vol] 104 mmol/L Normal 98-107 [facility] Comment on above: Order Comment: Speci men Type: BLOOD SPECIMENOrdering Facility: [facility] Address: [address] [place] [address] Performed By: #### 2 4323-8, ####[facility] [id number] [address] [address] [place] CO2 [Moles/Vol] 26 mmol/L Normal 21-32 [facility] Comment on above: Order Comment: Speci men Type: BLOOD SPECIMENOrdering Facility: [facility] Address: [address] [place] [address] Performed By: #### 2 4323-8, ####[facility]ORY[facility] [id number] [address] [address] [place] Creatinine [Mass/Vol] 0.63 mg/dL Normal 0.51-0.95 [facility] Comment on above: Order Comment: Speci men Type: BLOOD SPECIMENOrdering Facility: [facility] Address: [address] [place] [address] Result Comment: Cleopatra ents receiving either N-Acetylcysteine (NAC) or Metamizole prior to venipuncture, may have falsely depressed results. Performed By: #### 2 4323-8, ####[facility] [id number] [address] Creatinine and Glomerular filtration rate.predicted panel (S/P/Bld) 124 mL/min/1.73m??? Normal >=60 [facility] Comment on above: Order Comment: Speci men Type: BLOOD SPECIMENOrdering Facility: [facility] Address: [address] [place] [address] Result Comment: Janett mated Glomerular Filtration Rate [...] GFR. Performed By: #### 2 4323-, ####[facility] [id number] [address] [id number] [place] Glucose [Mass/Vol] 313 mg/dL High 70-100 [facility] Comment on above: Order Comment: Jon jeb Type: BLOOD SPECIMENOrdering Facility: [facility] Address: [address] [place] [address] Result Comment: The [employer] Diabetes Association (ADA) provides guidance for cutoff [...] Standards of Medical Care in Diabetes 2016, [employer] Diabetes Association. Diabetes Care. 2016.39(Suppl 1). Results may be falsely elevated after the administration of Sulfapyridine. Results may be falsely depressed after the administration of Sulfasalazine. Performed By: #### 2 4323-8, ####[facility] [id number] [address] [place] [id number] [place] Potassium [Moles/Vol] 4.0 mmol/L Normal 3.5-5.1 [facility] Comment on above: Order Comment: Jon russ Type: BLOOD SPECIMENOrdering Facility: [facility] Address: [address] [place] [address] Performed By: #### 2 4323-8, ####[facility] [id number] [address] [address] [place] Protein [Mass/Vol] 6.3 g/dL Normal 6.0-8.5 [facility] Comment on above: Order Comment: Jon jeb Type: BLOOD SPECIMENOrdering Facility: [facility] Address: [address] [place] [address] Performed By: #### 2 4323-8, ####[facility] [id number] [address] [place] [address] [place] Sodium [Moles/Vol] 139 mmol/L Normal 136-145 [facility] Comment on above: Order Comment: Speci men Type: BLOOD SPECIMENOrdering Facility: [facility] Address: [address] [place] [address] Performed By: #### 2 4323-8, ####[facility] [id number] [address] [place] Urea nitrogen [Mass/Vol] 16 mg/dL Normal 7-26 [facility] Comment on above: Order Comment: Speci men Type: BLOOD SPECIMENOrdering Facility: [facility] Address: [address] [place] [address] Performed By: #### 2 4323-8, 20712-5 ####[facility] [id number] [address] [place] ECG COMPLETEon 07-12-2023 ECG COMPLETE Ventricular Rate : 9 6 BPM Atrial Rate : 96 BPM P-R Interval : 132 ms QRS Duration : 78 ms Q-T Interval : 370 ms QTC Calculation(Bazett) : 468 ms Calculated P [place] : 49 degrees Calculated R [place] : 95 degrees Calculated T [place] : 68 degrees Normal sinus rhythm with sinus arrhythmia Normal ECG When compared with ECG of 31-JAN-2023 19:42, Nonspecific T wave abnormality no longer evident in Inferior leads Nonspecific T wave abnormality, improved in Anterolateral leads Confirmed by ANASTASIA CHENG MD ([id number]) on 07/13/2023 7:59:29 PM NAME : KATHLEEN VILLA PID : [id number] : 1995 Gender : Female Race : ORD : [id number] Procedure Date : Jul 12 2023 03:45:28 Edit Date : Jul 13 2023 19:59:34 Diagnosis: Normal sinus rhythm with sinus arrhythmia Normal ECG When compared with ECG of 31-JAN-2023 19:42, Nonspecific T wave abnormality no longer evident in Inferior leads Nonspecific T wave abnormality, improved in Anterolateral leads Confirmed by ANASTASIA CHENG MD ([id number]) on 07/13/2023 7:59:29 PM Test Reason : STAT Location : 0 : ED A Overread By : ANASTASIA CHENG MD Edited By : ANASTASIA CHENG MD Referred By : , Acquired by : [facility], [facility] ED NOTEon 07-12-2023 ED NOTE HNO ID: [id number] Author: Vinayak Arevalo, STIVEN Service: ? Author Type: Registered Nurse Type: ED Notes Filed: 07/12/2023 10:15 AM Note Text: Pt c/o CP after CT. Dr Cortes notified [facility] ED NOTE HNO ID: [id number] Author: Jhoana Hope RN Service: ? Author Type: Registered Nurse Type: ED Notes Filed: 07/12/2023 6:05 AM Note Text: Failed IV/ Blood draw attempts x 2 by multiple staff members. Pt states she has a port and would like it accessed. [facility] ED PROV NOTEon 07-12-2023 ED PROV NOTE HNO ID: [id number] Author: Zohreh Cortes MD Service: ? Author [...] and time. (more content not included)... Normal [facility] HIGH SENSITIVITY TROPONIN Io n 07-12-2023 Tropinin I.cardiac panel High sensitivity method <2.5 Normal 0.0-34.0 [facility] Comment on above: Order Comment: Speci men Type: BLOOD SPECIMEN Ordering Facility: [facility] Address: [address] [place] [phone] Result Comment: This assay uses different antibodies than our current assay, and assays, even by the same substance abuse therapist may recognize different regions of the antibody and cannot be used interchangeably. Expect results of this assay to run higher than the previous assay. Performed By: #### 3 1201-7, 5195-3, 02333-8, SYPH #### [facility] CLIA [id number] [facility] [place] [address] [place] Tropinin I.cardiac panel High sensitivity method 3.3 pg/mL Normal 0.0-34.0 [facility] Comment on above: Order Comment: Speci men Type: BLOOD SPECIMEN Ordering Facility: [facility] Address: [address] [place] [address] Result Comment: This assay uses different antibodies than our current assay, and assays, even by the same substance abuse therapist may recognize different regions of the antibody and cannot be used interchangeably. Expect results of this assay to run higher than the previous assay. Performed By: #### 3 1201-7, 5195-3, 12837-1, SYPH #### [facility] CLIA [id number] [address] [place] [address] [place] Lipase SerPl-cCncon 07-12-20 23 Lipase [Catalytic activity/Vol] 23 U/L Normal 12-60 [facility] Comment on above: Order Comment: Speci men Type: BLOOD SPECIMENOrdering Facility: [facility] Address: [address] [place] [address] Performed By: #### 3 040-3 ####[facility] [id number] [place] [address] [place] MORPH WAM REFLEXon 3 Platelets Estimate (Bld) [#/Vol] Decreased Normal [facility] Comment on above: Order Comment: Speci men Type: BLOOD SPECIMEN Ordering Facility: [facility] Address: [address] [place] [address] Performed By: #### 3 1201-7, 5195-3, 02040-9, SYPH #### [facility] CLIA [id number] [address] [place] [address] [place] RED CELL MORPH Reviewed: unremarkable Normal [facility] Comment on above: Order Comment: Speci men Type: BLOOD SPECIMEN Ordering Facility: [facility] Address: [address] [place] [address] Performed By: #### 3 1201-7, 5195-3, 68789-9, SYPH #### [facility] CLIA [id number] [address] [place] [address] [place] Magnesium SerPl-mCncon 07-12 Magnesium [Mass/Vol] 1.8 mg/dL Normal 1.6-2.6 [facility] Comment on above: Order Comment: Speci men Type: BLOOD SPECIMEN Ordering Facility: [facility] Address: [place] [address] Performed By: #### 3 1201-7, 5195-3, 84596-6, SYPH #### [facility] CLIA [id number] [address] [place], [place] [id number] [facility] XR CHEST 2V FRONTAL/LATon XR CHEST [...] significant acute radiographic abnormality of the chest. Steward[employer] Class: PSCB Transcribe Date/Time: Jul 12 2023 4:44A Dictated by : LETICIA HUTCHINS MD This examination was interpreted and the report reviewed and electronically signed by: LETICIA HUTCHINS MD on Jul 12 2023 4:45AM EST [id number] Normal [facility] Absolute lymphocyte countOrd ered By: Siddharth Herrera on 06-26-2023 Lymphocytes Auto (Unsp spec) [#/Vol] 0.96 10*3/uL 0.83-4.51 [facility] Basophil percentageOrdered B y: Siddharth Herrera on 06-26-2023 Basophils/100 WBC (Bld) 0.1 % 0-1 [facility] Bilirubin [Mass/Vol] 0.90 mg/dL 0.20-1.00 [facility] Comment on above: For patients on eltr ombopag therapy, use of Dimension Gregory TBIL is not recommended. Chloride [Moles/Vol] 104 mmol/L 98-107 [facility] Eosinophils/100 WBC (Bld) 0.0 % 0-5 [facility] Glucose [Mass/Vol] 254 mg/dL 74-106 [facility] Comment on above: Glucose result great er than or equal to 200 mg/dLsuggests DIABETES MELLITUS per A.D.A. criteria. Neutrophils (Bld) [#/Vol] 12.6 10*3/uL 2.0-7.7 [facility] Neutrophils/100 WBC (Bld) 88.9 % 47-70 [facility] Potassium [Moles/Vol] 3.5 mmol/L 3.5-5.1 [facility] Protein [Mass/Vol] 6.8 g/dL 6.4-8.2 [facility] Sodium [Moles/Vol] 137 mmol/L 136-145 [facility] WBC (Bld) [#/Vol] 14.2 10*3/uL 4.4-11.0 [facility] Blood erythrocytes count (nu mber/volume)Ordered By: Siddharth Herrera on 06-26-2023 RBC (Bld) [#/Vol] 4.21 10*6/uL 4.2-5.4 [facility] Blood hemoglobin measurement (mass/volume)Ordered By: Siddharth Herrera on 06-26-2023 Hemoglobin (Bld) [Mass/Vol] 12.3 g/dL 12.0-15.0 [facility] Blood lymphocytes/100 leukoc ytesOrdered By: Siddharth Herrera on 06-26-2023 Lymphocytes/100 WBC (Bld) 6.8 % 19-41 [facility] Blood monocytes/100 leukocyt esOrdered By: iSddharth Herrera on 06-26-2023 Monocytes/100 WBC (Bld) 3.4 % 0-10 [facility] Blood platelet mean volumeOr dered By: Siddharth Herrera on 06-26-2023 Platelet mean volume (Bld) [Entitic vol] 12.7 fL 6.2-12.0 [facility] Determination of erythrocyte mean corpuscular volume (MCV)Ordered By: Siddharth Herrera on 06-26-2023 MCV (RBC) [Entitic vol] 90.5 fL 81-99 [facility] Hematocrit Auto (Bld) [Volum e fraction]Or[facility]: [facility] 06-26-2023 Hematocrit (Bld) [Volume fraction] 38.1 [...] 06-26-2023 MCHC (RBC) [Mass/Vol] 32.3 g/dL 32-36 [facility] No Panel InformationOrdered By: Siddharth Herrera on [...] on 06-26-2023 Albumin [Mass/Vol] 3.6 g/dL 3.2-5.0 [facility] Serum or plasma albumin/glob ulin mass ratioOrdered By: Siddharth Herrera on 06-26-2023 Albumin/Globulin [Mass ratio] 1.1 {ratio} 0.9-2.4 [facility] Serum or plasma calcium milli urement (mass/volume)Ordered By: Siddharth Herrera on 06-26-2023 Calcium [Mass/Vol] 8.8 mg/dL 8.5-10.1 [facility] Serum or plasma creatinine m easurement (mass/volume)Ordered By: Siddharth Herrera on 06-26-2023 Creatinine [Mass/Vol] 0.85 mg/dL 0.55-1.02 [facility] Comment on above: The validity of the [...] [facility] Bilirubin [Mass/Vol] 0.60 mg/dL 0.20-1.00 [facility] Comment on above: For patients on eltr ombopag therapy, use of Dimension Gregory TBIL is not recommended. Chloride [Moles/Vol] 109 mmol/L 98-107 [facility] Eosinophils/100 WBC (Bld) 0.4 % 0-5 [facility] Glucose [Mass/Vol] 283 mg/dL 74-106 [facility] Comment on above: Glucose result great er than or equal to 200 mg/dLsuggests DIABETES MELLITUS per A.D.A. criteria. Neutrophils (Bld) [#/Vol] 9.2 10*3/uL 2.0-7.7 [facility] Neutrophils/100 WBC (Bld) 75.9 % 47-70 [facility] Potassium [Moles/Vol] 3.8 mmol/L 3.5-5.1 [facility] Protein [Mass/Vol] 6.9 g/dL 6.4-8.2 [facility] Sodium [Moles/Vol] 140 mmol/L 136-145 [facility] WBC (Bld) [#/Vol] 12.1 10*3/uL 4.4-11.0 [facility] Beta hCG serum qualOrdered B y: Greg Philip on 06-25-2023 Beta HCG ( test) Ql Negative [facility] Blood erythrocytes count (nu mber/volume)Ordered By: Greg Philip on 06-25-2023 RBC (Bld) [#/Vol] 4.56 10*6/uL 4.2-5.4 [facility] Blood hemoglobin measurement (mass/volume)Ordered By: Greg Philip [...] 06-25-2023 MCHC (RBC) [Mass/Vol] 33.1 g/dL 32-36 [facility] No Panel InformationOrdered By: Greg Philip on [...] on 06-25-2023 Albumin [Mass/Vol] 3.7 g/dL 3.2-5.0 [facility] Serum or plasma albumin/glob ulin mass ratioOrdered By: Greg Philip on 06-25-2023 Albumin/Globulin [Mass ratio] 1.2 {ratio} 0.9-2.4 [facility] Serum or plasma calcium milli urement (mass/volume)Ordered By: Greg Philip on 06-25-2023 Calcium [Mass/Vol] 9.1 mg/dL 8.5-10.1 [facility] Serum or plasma creatinine m easurement (mass/volume)Ordered By: Greg Philip on 06-25-2023 Creatinine [Mass/Vol] 0.81 mg/dL 0.55-1.02 [facility] Comment on above: The validity of the [...] 7.2 % Abnormal 4.2 - 5.6 % [facility] CNPNon 05-23-2023 CNPN Telephone (FAMPOR) KATHLEEN VILLA ([id number]) 1995 F T Date Time Provider Department [facility] During your visit today, we recorded the [...] All meds reviewed before sx. Pt has yae also for after sx. CL 01/09/20 IC [...] Encounter Status:Closed by EUNICE MCDONALD on 05/23/23 [facility] Basophil percentageOrdered B y: Lin Johansen on 05-03-2023 Chloride [Moles/Vol] 111 mmol/L 98-107 [facility] Glucose [Mass/Vol] 230 mg/dL 74-106 [facility] Comment on above: Glucose result great er than or equal to 200 mg/dLsuggests DIABETES MELLITUS per A.D.A. criteria. Potassium [Moles/Vol] 3.7 mmol/L 3.5-5.1 [facility] Sodium [Moles/Vol] 142 mmol/L 136-145 [facility] Beta hCG serum qualOrdered B y: Marc [...] Carl on 05-03-2023 Acetone [Mass/Vol] MODERATE NEG [facility] Serum or plasma calcium milli urement (mass/volume)Ordered By: Lin Johansen on 05-03-2023 Calcium [Mass/Vol] 7.7 mg/dL 8.5-10.1 [facility] Serum or plasma creatinine m easurement (mass/volume)Ordered By: Lin Johansen on 05-03-2023 Creatinine [Mass/Vol] 0.62 mg/dL 0.55-1.02 [facility] Comment on above: The validity of the [...] [facility] Chloride [Moles/Vol] 108 mmol/L 98-107 [facility] Eosinophils/100 WBC (Bld) 0.0 % 0-5 [facility] Glucose [Mass/Vol] 258 mg/dL 74-106 [facility] Comment on above: Glucose result great er than or equal to 200 mg/dLsuggests DIABETES MELLITUS per A.D.A. criteria. Neutrophils (Bld) [#/Vol] 11.5 10*3/uL 2.0-7.7 [facility] Neutrophils/100 WBC (Bld) 79.4 % 47-70 [facility] Potassium [Moles/Vol] 4.5 mmol/L 3.5-5.1 [facility] Sodium [Moles/Vol] 136 mmol/L 136-145 [facility] WBC (Bld) [#/Vol] 14.4 10*3/uL 4.4-11.0 [facility] Blood erythrocytes count (nu mber/volume)Ordered By: Ileana Lobo on 04-29-2023 RBC (Bld) [#/Vol] 3.86 10*6/uL 4.2-5.4 [facility] Blood hemoglobin measurement (mass/volume)Ordered By: Ileana Lobo [...] on 04-29-2023 Glucose [Mass/Vol] 210 mg/dL 74-106 [facility] Comment on above: MANAGEMENT OF PATIEN T [...] 04-29-2023 MCHC (RBC) [Mass/Vol] 32.7 g/dL 32-36 [facility] No Panel InformationOrdered By: Ileana Lboo on 04-29-2023 Estimated Creatinine Clearance Calc 112.22 [...] on 04-29-2023 Calcium [Mass/Vol] 8.0 mg/dL 8.5-10.1 [facility] Serum or plasma creatinine m easurement (mass/volume)Ordered By: Ileana Lobo on 04-29-2023 Creatinine [Mass/Vol] 0.78 mg/dL 0.55-1.02 [facility] Comment on above: The validity of the [...] 04-28-2023 Basophil percentage 0-5 SEEN /hpf 0-5 [facility] Basophil percentageOrdered B y: David Smith on 04-28-2023 Basophil percentage 18.2 mmol/L 22-26 [facility] Basophils/100 WBC (Bld) 99 % 95-99 [facility] [...] VALUE *HCRI TICAL VALUE VERIFIED. CALLED TO [id number]/01/23 1730 Emily Felix.RESULTS READ BACK BY SAME . Laboratory - Chemistry and C hemistry - challengeOrdered By: Ileana Lobo on 04-28-2023 Magnesium [Mass/Vol] 2.1 mg/dL 1.6-2.6 [facility] Laboratory - Drug toxicology Ordered By: Ileana Lobo on 04-28-2023 Amphetamines Ql (U) Negative <1000 ng/mL [facility] Benzodiazepines Ql (U) Negative < 200 ng/mL [facility] Cannabinoids Screen Ql (U) Positive < 50 ng/mL [facility] Cocaine Ql (U) Negative < 300 ng/mL [facility] Opiates Ql (U) Negative < 300 ng/mL [facility] Mucus LM Ql (Urine sed)Order ed By: Ileana Lobo on 04-28-2023 Mucus Ql (Urine sed) 0 SEEN /hpf [facility] Nitrite Test strip Ql (U)Ord ered By: Ileana Lobo on 04-28-2023 Nitrite Ql (U) Negative Negative [facility] No Panel InformationOrdered By: Ileana Lobo on 04-28-2023 MDMA (Ecstasy) Screen Negative < 500 ng/mL [facility] Urine Barbiturates Screen Negative < 200 [...] Methadone Screen Negative < 300 ng/mL [facility] No Panel InformationOrdered By: David Smith on 04-28-2023 Blood Gas Sample Site R Radial [facility] Blood Gas Specimen Type ART [facility] Blood Gas Total CO2 19 mmol/L [facility] Oxygen (BldA) [Partial press ure]Ordered By: David Smith on 04-28-2023 Oxygen (Bld) [Partial pressure] 107 mmHG 75-100 [facility] Protein Test strip Ql (U)Ord ered By: Ileana Lobo on 04-28-2023 Protein Ql (U) Negative Negative [facility] Serum or plasma acetone milli urement (mass/volume)Ordered By: Vincenzo Castañeda on 04-28-2023 Acetone [Mass/Vol] SMALL NEG [facility] Serum procalcitonin measurem entOrdered By: Ileaan Lobo on 04-28-2023 Procalcitonin [Mass/Vol] 0.08 ng/mL [...] Phencyclidine Ql (U) Negative < 25 ng/mL [facility] Urine sediment bacteria coun t by microscopy (number/high power field)Ordered By: Ileana Lobo on 04-28-2023 Bacteria LM.HPF (Urine sed) [#/Area] 0 /[HPF] None Seen [facility] Urine specific gravity measu rementOrdered By: Ileana Lobo on 04-28-2023 Specific gravity (U) [Rel density] 1.010 1.002-1.030 [facility] Urobilinogen Auto test strip Ql (U)Ordered By: Ileana Lobo on 04-28-2023 Urobilinogen Ql (U) Normal mg/dl Normal [facility] pH measurementOrdered By: Gloria Smith on 04-28-2023 pH (Unsp spec) 7.44 [pH] 7.35-7.45 [facility] Absolute lymphocyte countOrd ered By: Lin Johansen on 04-27-2023 Lymphocytes Auto (Unsp spec) [#/Vol] 0.67 10*3/uL 0.83-4.51 [facility] Basophil percentageOrdered B y: Lin Johansen on 04-27-2023 Basophils/100 WBC (Bld) 0.2 % 0-1 [facility] Bilirubin [Mass/Vol] 1.00 mg/dL 0.20-1.00 [facility] Comment on above: For patients on eltr ombopag therapy, use of Dimension Gregory TBIL is not recommended. Chloride [Moles/Vol] 102 mmol/L 98-107 [facility] Eosinophils/100 WBC (Bld) 0.0 % 0-5 [facility] Glucose [Mass/Vol] 313 mg/dL 74-106 [facility] Comment on above: Glucose result great er than or equal to 200 mg/dLsuggests DIABETES MELLITUS per A.D.A. criteria. Neutrophils (Bld) [#/Vol] 19.6 10*3/uL 2.0-7.7 [facility] Neutrophils/100 WBC (Bld) 93.9 % 47-70 [facility] Potassium [Moles/Vol] 5.1 mmol/L 3.5-5.1 [facility] Protein [Mass/Vol] 7.5 g/dL 6.4-8.2 [facility] Sodium [Moles/Vol] 130 mmol/L 136-145 [facility] WBC (Bld) [#/Vol] 20.9 10*3/uL 4.4-11.0 [facility] Blood erythrocytes count (nu mber/volume)Ordered By: Lin Johansen on 04-27-2023 RBC (Bld) [#/Vol] 4.65 10*6/uL 4.2-5.4 [facility] Blood hemoglobin measurement (mass/volume)Ordered By: Lin Johansen [...] on 04-27-2023 Glucose [Mass/Vol] 206 mg/dL 74-106 [facility] Comment on above: MANAGEMENT OF PATIEN T [...] 04-27-2023 MCHC (RBC) [Mass/Vol] 32.1 g/dL 32-36 [facility] No Panel InformationOrdered By: Lin Johansen on [...] on 04-27-2023 Albumin [Mass/Vol] 4.0 g/dL 3.2-5.0 [facility] Serum or plasma calcium milli urement (mass/volume)Ordered By: Lin Johansen on 04-27-2023 Calcium [Mass/Vol] 9.4 mg/dL 8.5-10.1 [facility] Serum or plasma creatinine m easurement (mass/volume)Ordered By: Lin Johansen on 04-27-2023 Creatinine [Mass/Vol] 1.08 mg/dL 0.55-1.02 [facility] Comment on above: The validity of the [...] [facility] Chloride [Moles/Vol] 106 mmol/L 98-107 [facility] Eosinophils/100 WBC (Bld) 0.4 % 0-5 [facility] Glucose [Mass/Vol] 108 mg/dL 74-106 [facility] Comment on above: Fasting Glucose resu lt from 100 to 125 mg/dL suggests IMPAIRED HOMEOSTASIS per A.D.A. criteria. Neutrophils (Bld) [#/Vol] 10.8 10*3/uL 2.0-7.7 [facility] Neutrophils/100 WBC (Bld) 78.6 % 47-70 [facility] Potassium [Moles/Vol] 3.9 mmol/L 3.5-5.1 [facility] Sodium [Moles/Vol] 135 mmol/L 136-145 [facility] WBC (Bld) [#/Vol] 13.8 10*3/uL 4.4-11.0 [facility] Blood erythrocytes count (nu mber/volume)Ordered By: Loki Soria on 04-26-2023 RBC (Bld) [#/Vol] 4.80 10*6/uL 4.2-5.4 [facility] Blood hemoglobin measurement (mass/volume)Ordered By: Loki Soria on 04-26-2023 Hemoglobin (Bld) [Mass/Vol] 14.1 g/dL 12.0-15.0 [facility] Blood lymphocytes/100 leukoc ytesOrdered By: Loik Soria on 04-26-2023 Lymphocytes/100 WBC (Bld) 13.6 [...] 04-26-2023 MCHC (RBC) [Mass/Vol] 33.1 g/dL 32-36 [facility] No Panel InformationOrdered By: Loki Soria on [...] For more information see Policy Stat Procedure Gregory High Sensitivity Troponin (TNIH) and attachments. Platelets bldOrdered By: Ashley Soria on 04-26-2023 Platelets (Bld) [#/Vol] 158 10*3/uL 150-450 [facility] Serum or plasma calcium milli urement (mass/volume)Ordered By: Loki Soria on 04-26-2023 Calcium [Mass/Vol] 9.2 mg/dL 8.5-10.1 [facility] Serum or plasma creatinine m easurement (mass/volume)Ordered By: Loki Soria on 04-26-2023 Creatinine [Mass/Vol] 0.96 mg/dL 0.55-1.02 [facility] Comment on above: The validity of the [...] Basophil percentage 5-10 SEEN /hpf 0-5 [facility] Basophils/100 WBC (Bld) 0.3 % 0-1 [facility] Bilirubin [Mass/Vol] 0.30 mg/dL 0.20-1.00 [facility] Comment on above: For patients on eltr ombopag therapy, use of Dimension Gregory TBIL is not recommended. Chloride [Moles/Vol] 114 mmol/L 98-107 [facility] Eosinophils/100 WBC (Bld) 0.6 % 0-5 [facility] Glucose [Mass/Vol] 60 mg/dL 74-106 [facility] Neutrophils (Bld) [#/Vol] 10.3 10*3/uL 2.0-7.7 [facility] Neutrophils/100 WBC (Bld) 77.2 % 47-70 [facility] Potassium [Moles/Vol] 3.3 mmol/L 3.5-5.1 [facility] Protein [Mass/Vol] 6.3 g/dL 6.4-8.2 [facility] Sodium [Moles/Vol] 143 mmol/L 136-145 [facility] WBC (Bld) [#/Vol] 13.4 10*3/uL 4.4-11.0 [facility] Beta hCG serum qualOrdered B y: Greg Philip on 04-23-2023 Beta HCG ( test) Ql Negative [facility] Bilirubin Test strip Ql (U)O rdered By: Greg Philip on 04-23-2023 Bilirubin Ql (U) Negative Negative [facility] Blood erythrocytes count (nu mber/volume)Ordered By: Greg Philip on 04-23-2023 RBC (Bld) [#/Vol] 4.34 10*6/uL 4.2-5.4 [facility] Blood hemoglobin measurement (mass/volume)Ordered By: Greg Philip [...] on 04-23-2023 Glucose [Mass/Vol] 108 mg/dL 74-106 [facility] Comment on above: MANAGEMENT OF PATIEN T [...] aPTT Coag (Bld) [Time] 34.5 s 24.1-36.2 [facility] PT Coag (PPP) [Time] 14.4 s 11.7-14.9 [facility] Laboratory - Hematology and Cell countsOrdered By: [...] 04-23-2023 MCHC (RBC) [Mass/Vol] 32.7 g/dL 32-36 [facility] Mucus LM Ql (Urine sed)Order ed By: Greg Philip on 04-23-2023 Mucus Ql (Urine sed) 0 SEEN /hpf [facility] Nitrite Test strip Ql (U)Ord ered By: [...] For more information see Policy Stat Procedure Gregory High Sensitivity Troponin (TNIH) and attachments. Platelets bldOrdered By: Allyn Philip on 04-23-2023 Platelets (Bld) [#/Vol] 149 10*3/uL 150-450 [facility] Protein Test strip Ql (U)Ord ered By: Greg Philip on 04-23-2023 Protein Ql (U) Negative Negative [facility] Serum or plasma acetone milli urement (mass/volume)Ordered By: Greg Philip on 04-23-2023 Acetone [Mass/Vol] Negative NEG [facility] Serum or plasma albumin milli urement (mass/volume)Ordered By: Greg Philip on 04-23-2023 Albumin [Mass/Vol] 3.4 g/dL 3.2-5.0 [facility] Serum or plasma albumin/glob ulin mass ratioOrdered By: Greg Philip on 04-23-2023 Albumin/Globulin [Mass ratio] 1.2 {ratio} 0.9-2.4 [facility] Serum or plasma calcium milli urement (mass/volume)Ordered By: Greg Philip on 04-23-2023 Calcium [Mass/Vol] 8.6 mg/dL 8.5-10.1 [facility] Serum or plasma creatinine m easurement (mass/volume)Ordered By: Greg Philip on 04-23-2023 Creatinine [Mass/Vol] 0.56 mg/dL 0.55-1.02 [facility] Comment on above: The validity of the [...] 04-23-2023 Urobilinogen Ql (U) Normal mg/dl Normal [facility] CBC W Auto Differential pane l (Bld)on 04-06-2023 Basophils (Bld) [#/Vol] 0.05 10*3/uL Normal <0.11 [facility] Comment on above: Order Comment: Speci men Type: BLOOD SPECIMEN Ordering Facility: [facility] Address: [address] [place] [address] Performed By: #### 3 1201-7, 5195-3, 39610-1, SYPH #### [facility] CLIA [id number] [address] [place] [address] [place] Basophils/100 WBC (Bld) 0.4 % Normal [facility] Comment on above: Order Comment: Speci men Type: BLOOD SPECIMEN Ordering Facility: [facility] Address: [address] [place] [address] Performed By: #### 3 1201-7, 5194-3, 60301-7, SYPH #### [facility] CLIA [id number] [address] [place] [address] [place] Differential cell count method Nom (Bld) Auto Normal [facility] Comment on above: Order Comment: Speci men Type: BLOOD SPECIMEN Ordering Facility: [facility] Address: [address] [place] [address] Performed By: #### 3 1201-7, 5-3, 28325-6, SYPH #### [facility] CLIA [id number] [address] [place] [address] [place] Eosinophils (Bld) [#/Vol] 0.03 10*3/uL Normal <0.46 [facility] Comment on above: Order Comment: Speci men Type: BLOOD SPECIMEN Ordering Facility: [facility] Address: [address] [place] [address] Performed By: #### 3 1201-7, 5195-3, 75208-4, SYPH #### [facility] CLIA [id number] [address] [place] [address] [place] Eosinophils/100 WBC (Bld) 0.2 % Normal [facility] Comment on above: Order Comment: Speci men Type: BLOOD SPECIMEN Ordering Facility: [facility] Address: [address] [place] [address] Performed By: #### 3 1201-7, 5-3, 65384-5, SYPH #### [facility] CLIA [id number] [address] [place] [address] [place] Erythrocyte distribution width (RBC) [Ratio] 13.9 % Normal 11.5-15.0 [facility] Comment on above: Order Comment: Speci men Type: BLOOD SPECIMEN Ordering Facility: [facility] Address: [address] [place] [address] Performed By: #### 3 1201-7, 5-3, 24156-6, SYPH #### [facility] CLIA [id number] [address] [place] [address] [place] Hematocrit (Bld) [Volume fraction] 43.8 % Normal 36.0-46.0 [facility] Comment on above: Order Comment: Speci men Type: BLOOD SPECIMEN Ordering Facility: [facility] Address: [address] [place] [address] Performed By: #### 3 1201-7, 5-3, 44499-4, SYPH #### [facility] CLIA [id number] [address] [place] [address] [place] Hemoglobin (Bld) [Mass/Vol] 14.4 g/dL Normal 11.5-15.5 [facility] Comment on above: Order Comment: Speci men Type: BLOOD SPECIMEN Ordering Facility: [facility] Address: [address] [place] [address] Performed By: #### 3 1201-7, 5-3, 72792-9, SYPH #### [facility] CLIA [id number] [address] [place] [address] [place] Immature granulocytes (Bld) [#/Vol] 0.11 10*3/uL High <0.10 [facility] Comment on above: Order Comment: Speci men Type: BLOOD SPECIMEN Ordering Facility: [facility] Address: [address] [place] [address] Performed By: #### 3 1201-7, 5195-3, 52855-8, SYPH #### [facility] CLIA [id number] [address] [place] [address] [place] Immature granulocytes/100 WBC (Bld) 0.8 % Normal [facility] Comment on above: Order Comment: Speci men Type: BLOOD SPECIMEN Ordering Facility: [facility] Address: [address] [place] [address] Performed By: #### 3 1201-7, 5-3, 99759-2, SYPH #### [facility] CLIA [id number] [address] [place] [address] [place] Lymphocytes (Bld) [#/Vol] 2.59 10*3/uL Normal 1.00-4.00 [facility] Comment on above: Order Comment: Speci men Type: BLOOD SPECIMEN Ordering Facility: [facility] Address: [address] [place] [address] Performed By: #### 3 1201-7, 5194-3, , SYPH #### [facility] CLIA [id number] [address] [place] [address] [place] Lymphocytes/100 WBC (Bld) 19.8 % Normal [facility] Comment on above: Order Comment: Speci men Type: BLOOD SPECIMEN Ordering Facility: [facility] Address: [address] [place] [address] Performed By: #### 3 1201-7, 5-3, 26514-7, SYPH #### [facility] CLIA [id number] [address] [place] [address] [place] MCH (RBC) [Entitic mass] 29.1 pg Normal 26.0-34.0 [facility] Comment on above: Order Comment: Speci men Type: BLOOD SPECIMEN Ordering Facility: [facility] Address: [address] [place] [address] Performed By: #### 3 1201-7, 5195-3, 37350-7, SYPH #### [facility] CLIA [id number] [address] [place] [address] [place] MCHC (RBC) [Mass/Vol] 32.9 g/dL Normal 30.5-36.0 [facility] Comment on above: Order Comment: Speci men Type: BLOOD SPECIMEN Ordering Facility: [facility] Address: [address] [place] [address] Performed By: #### 3 1201-7, 5195-3, 83529-6, SYPH #### [facility] CLIA [id number] [address] [place] [address] [place] MCV (RBC) [Entitic vol] 88.5 fL Normal 80.0-100.0 [facility] Comment on above: Order Comment: Speci men Type: BLOOD SPECIMEN Ordering Facility: [facility] Address: [address] [place] [address] Performed By: #### 3 1201-7, 5195-3, 81125-0, SYPH #### [facility] CLIA [id number] [address] [place] [address] [place] Monocytes (Bld) [#/Vol] 0.76 10*3/uL Normal <0.87 [facility] Comment on above: Order Comment: Speci men Type: BLOOD SPECIMEN Ordering Facility: [facility] Address: [address] [place] [address] Performed By: #### 3 1201-7, 5195-3, 38252-0, SYPH #### [facility] CLIA [id number] [address] [place] [address] [place] Monocytes/100 WBC (Bld) 5.8 % Normal [facility] Comment on above: Order Comment: Speci men Type: BLOOD SPECIMEN Ordering Facility: [facility] Address: [address] [place] [address] Performed By: #### 3 1201-7, 5195-3, 05100-1, SYPH #### [facility] CLIA [id number] [address] [place] [address] [place] Neutrophils (Bld) [#/Vol] 9.56 10*3/uL High 1.45-7.50 [facility] Comment on above: Order Comment: Speci men Type: BLOOD SPECIMEN Ordering Facility: [facility] Address: [address] [place] [address] Performed By: #### 3 1201-7, 5195-3, 84909-6, SYPH #### [facility] CLIA [id number] [address] [place] [address] [place] Neutrophils/100 WBC (Bld) 73.0 % Normal [facility] Comment on above: Order Comment: Speci men Type: BLOOD SPECIMEN Ordering Facility: [facility] Address: [address] [place] [address] Performed By: #### 3 1201-7, 5-3, 93020-5, SYPH #### [facility] CLIA [id number] [address] [place] [address] [place] Nucleated RBC (Bld) [#/Vol] 10*3/uL Normal <0.01 [facility] Comment on above: Order Comment: Speci men Type: BLOOD SPECIMEN Ordering Facility: [facility] Address: [address] [place] [address] Performed By: #### 3 1201-7, 5-3, 46563-9, SYPH #### [facility] CLIA [id number] [address] [place] [address] [place] Nucleated RBC/100 WBC (Bld) [Ratio] 0.0 /100 WBC Normal [facility] Comment on above: Order Comment: Speci men Type: BLOOD SPECIMEN Ordering Facility: [facility] Address: [address] [place] [address] Performed By: #### 3 1201-7, 5195-3, 13984-5, SYPH #### [facility] CLIA [id number] [address] [place] [address] [place] Platelet mean volume (Bld) [Entitic vol] 12.0 fL Normal 9.0-12.7 [facility] Comment on above: Order Comment: Speci men Type: BLOOD SPECIMEN Ordering Facility: [facility] Address: [address] [place] [address] Performed By: #### 3 1201-7, 5195-3, 02745-0, SYPH #### [facility] CLIA [id number] [address] [place] [address] [place] Platelets (Bld) [#/Vol] 180 10*3/uL Normal 150-400 [facility] Comment on above: Order Comment: Speci men Type: BLOOD SPECIMEN Ordering Facility: [facility] Address: [address] [place] [address] Performed By: #### 3 1201-7, 5195-3, 54437-4, SYPH #### [facility] CLIA [id number] [address] [place] [address] [place] RBC (Bld) [#/Vol] 4.95 10*6/uL Normal 3.90-5.20 [facility] Comment on above: Order Comment: Speci men Type: BLOOD SPECIMEN Ordering Facility: [facility] Address: [address] [place] [address] Performed By: #### 3 1201-7, 5195-3, 49618-9, SYPH #### [facility] CLIA [id number] [address] [place], [place] [address] [place] WBC (Bld) [#/Vol] 13.10 10*3/uL High 3.70-11.00 [facility] Comment on above: Order Comment: Speci men Type: BLOOD SPECIMEN Ordering Facility: [facility] Address: [address] [place] [address] Performed By: #### 3 1201-7, 5195-3, 37790-6, SYPH #### [facility] CLIA [id number] [address] [place] [address], [place] [address] [place] CT ABD/PEL W IVCONon 023 CT ABD/PEL W IVCON * * *Final Report* * * DATE OF EXAM: Apr 06 2023 12:56AM [facility] 0530 - CT ABD/PEL W IVCON [...] Likely right lower quadrant ventral injection sites/granuloma. Broadcast Systems Engineer (topogram) images: No additional findings. IMPRESSION: 1. No acute abnormality. Steward/Stewardess Economy Class: PSCB Transcribe Date/Time: Apr 06 2023 1:25A Dictated by : LIANG SLAUGHTER MD This examination was interpreted and the report reviewed and electronically signed by: LIANG SLAUGHTER MD on Apr 06 2023 1:30AM EST [id number] Normal [facility] Comprehensive metabolic 2000 panelon 04-06-2023 Albumin [Mass/Vol] 4.2 g/dL Normal 3.2-5.0 [facility] Comment on above: Order Comment: Speci men Type: BLOOD SPECIMEN Ordering Facility: [facility] Address: [address] [place] [address] Performed By: #### 3 1201-7, 5195-3, 85529-6, SYPH #### [facility] CLIA [id number] [address] [place] [address] [place] ALP [Catalytic activity/Vol] 85 U/L Normal 45-117 [facility] Comment on above: Order Comment: Speci men Type: BLOOD SPECIMEN Ordering Facility: [facility] Address: [address] [place] [address] Performed By: #### 3 1201-7, 5195-3, 01438-6, SYPH #### [facility] CLIA [id number] [address] [place] [address] [place] ALT [Catalytic activity/Vol] 87 U/L High 13-61 [facility] Comment on above: Order Comment: Speci men Type: BLOOD SPECIMEN Ordering Facility: [facility] Address: [address] [place] [address] Result Comment: Resu lts may be falsely depressed after the administration of Sulfasalazine and/or Sulfapyridine. Performed By: #### 3 1201-7, 5195-3, 57921-3, SYPH #### [facility] CLIA [id number] [address] [place] [address] [place] Anion gap [Moles/Vol] 8 mmol/L Normal 5-16 [facility] Comment on above: Order Comment: Speci men Type: BLOOD SPECIMEN Ordering Facility: [facility] Address: [address] [place] [address] Performed By: #### 3 1201-7, 5195-3, 74386-3, SYPH #### [facility] CLIA [id number] [address] [place] [address] [place] AST [Catalytic activity/Vol] 60 U/L High 8-34 [facility] Comment on above: Order Comment: Speci men Type: BLOOD SPECIMEN Ordering Facility: [facility] Address: [address] Result Comment: Resu lts may be falsely depressed after the administration of Sulfasalazine and/or Sulfapyridine. Performed By: #### 3 1201-7, 5195-3, 77207-1, SYPH #### [facility] CLIA [id number] [address] [place] [address] [place] Bilirubin [Mass/Vol] 0.7 mg/dL Normal 0.2-1.0 [facility] Comment on above: Order Comment: Speci men Type: BLOOD SPECIMEN Ordering Facility: [facility] Address: [address] [place] [address] Performed By: #### 3 1201-7, 5-3, , SYPH #### [facility] CLIA [id number] [address] [place] [address] [place] Calcium [Mass/Vol] 9.6 mg/dL Normal 8.5-10.5 [facility] Comment on above: Order Comment: Speci men Type: BLOOD SPECIMEN Ordering Facility: [facility] Address: [address] [place] [address] Performed By: #### 3 1201-7, 5194-3, , SYPH #### [facility] CLIA [id number] [address] [place] [address] [place] Chloride [Moles/Vol] 107 mmol/L Normal 98-107 [facility] Comment on above: Order Comment: Speci men Type: BLOOD SPECIMEN Ordering Facility: [facility] Address: [address] [place] [address] Performed By: #### 3 1201-7, 5195-3, 25002-0, SYPH #### [facility] CLIA [id number] [address] [place] [address] [place] CO2 [Moles/Vol] 26 mmol/L Normal 21-32 [facility] Comment on above: Order Comment: Speci men Type: BLOOD SPECIMEN Ordering Facility: [facility] Address: [address] [place], [place] [address] Performed By: #### 3 1201-7, 5195-3, 12135-3, SYPH #### [facility] CLIA [id number] [address] [place] [address] [place] Creatinine [Mass/Vol] 0.69 mg/dL Normal 0.51-0.95 [facility] Comment on above: Order Comment: Speclatasha russ Type: BLOOD SPECIMEN Ordering Facility: [facility] Address: [address] Result Comment: Cleopatra ents receiving either N-Acetylcysteine (NAC) or Metamizole prior to venipuncture, may have falsely depressed results. Performed By: #### 3 1201-7, 5195-3, 30812-3, SYPH #### [facility] CLIA [id number] [address] [place] [address] [place] [facility] ESTIMATED GLOMERULAR FILTRATION RATE 121 mL/min/1.73m??? Normal >=60 [facility] Comment on above: Order Comment: Belindai jeb Type: BLOOD SPECIMEN Ordering Facility: [facility] Address: [address] [place] [address] Result Comment: Janett mated Glomerular Filtration Rate [...] GFR. Performed By: #### 3 1201-7, 5195-3, 07591-4, SYPH #### [facility] CLIA [id number] [address] [place] [address] [place] Glucose [Mass/Vol] 79 mg/dL Normal 70-100 [facility] Comment on above: Order Comment: Jon russ Type: BLOOD SPECIMEN Ordering Facility: [facility] Address: [address] [place] [address] Result Comment: The [employer] Diabetes Association (ADA) provides guidance for cutoff [...] Standards of Medical Care in Diabetes 2016, Indian Diabetes Association. Diabetes Care. 2016.39(Suppl 1). Results may be falsely elevated after the administration of Sulfapyridine. Results may be falsely depressed after the administration of Sulfasalazine. Performed By: #### 3 1201-7, 5195-3, 18154-8, SYPH #### [facility] CLIA [id number] [address] [place] [address] [place] Potassium [Moles/Vol] 4.0 mmol/L Normal 3.5-5.1 [facility] Comment on above: Order Comment: Jon russ Type: BLOOD SPECIMEN Ordering Facility: [facility] Address: [address] [place] [address] Performed By: #### 3 1201-7, 5195-3, 65386-5, SYPH #### [facility] CLIA [id number] [address] [place] [address] [place] Protein [Mass/Vol] 7.2 g/dL Normal 6.0-8.5 [facility] Comment on above: Order Comment: Jon russ Type: BLOOD SPECIMEN Ordering Facility: [facility] Address: [address] [place] [id number] Performed By: #### 3 1201-7, 5195-3, 85197-9, SYPH #### [facility] CLIA [id number] [address] [place] [address] [place] Sodium [Moles/Vol] 141 mmol/L Normal 136-145 [facility] Comment on above: Order Comment: Jon russ Type: BLOOD SPECIMEN Ordering Facility: [facility] Address: [address] [facility] [place] [address] Performed By: #### 3 1201-7, 5195-3, 80953-1, SYPH #### [facility] CLIA [id number] [address] [place], [place] [address] [facility] Urea nitrogen [Mass/Vol] 15 mg/dL Normal 7- [facility] Comment on above: Order Comment: Speci men Type: BLOOD SPECIMEN Ordering Facility: [facility] Address: [place] [address] Performed By: #### 3 1201-7, 5195-3, 59940-4, SYPH #### [facility] CLIA [id number] [address] [place], [place] [address] [facility] ED PROV NOTEon 04-06-2023 ED PROV NOTE HNO ID: [id number] Author: Greg Talbot DO Service: Emergency Medicine [...] GREG TALBOT 04/06/23 0236 GREG TALBOT 04/06/23253 [facility] ED PROV NOTE HNO ID: [id number] Author: Jorge Alberto Nj MD Service: ? [...] be ki (more content not included)... Normal [facility] ED Triage Noteon 04-06-2023 ED Triage Note HNO ID: [id number] Author: Merced Mora PA-C Service: ? Author Type: Physician Wastewater Analyst Type: ED Triage Notes Filed: 04/05/2023 10:31 [...] CMP Urinalysis SIGNATURE: Merced Mora PA-C Normal [facility] HCG QUAL BLDon 04-06-2023 HCG, QUALITATIVE Negative Normal Negative [facility] Comment on above: Order Comment: Speci men Type: BLOOD SPECIMEN Ordering Facility: [facility] Address: [place] [address] Performed By: #### 3 1201-7, 5195-3, 46085-9, SYPH #### [facility] CLIA [id number] [facility] [place] [address] [place] Urinalysis complete panel (U )on 04-06-2023 Bacteria LM.HPF (Urine sed) [#/Area] Rare Abnormal None Seen [facility] Comment on above: Order Comment: Speci men Type: BLOOD SPECIMEN Ordering Facility: [facility] Address: [address] [place] [address] Performed By: #### 3 1201-7, 5195-3, 40511-2, SYPH #### [facility] CLIA [id number] [address] [place] [address] [place] Bilirubin Ql (U) Negative Normal Negative [facility] Comment on above: Order Comment: Speci men Type: BLOOD SPECIMEN Ordering Facility: [facility] Address: [address] [place] [address] Performed By: #### 3 1201-7, 5-3, 78223-7, SYPH #### [facility] CLIA [id number] [address] [place] [address] [place] Clarity (Unsp spec) Clear Normal Clear [facility] Comment on above: Order Comment: Speci men Type: BLOOD SPECIMEN Ordering Facility: [facility] Address: [address] [place] [address] Performed By: #### 3 1201-7, 5-3, 92762-8, SYPH #### [facility] CLIA [id number] [address] [place] [address] [place] Color (U) Yellow Normal Yellow [facility] Comment on above: Order Comment: Speci men Type: BLOOD SPECIMEN Ordering Facility: [facility] Address: [address] [place] [address] Performed By: #### 3 1201-7, 5195-3, 04093-2, SYPH #### [facility] CLIA [id number] [address] [place] [address] [place] Epithelial cells LM.HPF (Urine sed) [#/Area] Many Normal [facility] Comment on above: Order Comment: Speci men Type: BLOOD SPECIMEN Ordering Facility: [facility] Address: [address] [place] [address] Performed By: #### 3 1201-7, 5-3, 01106-7, SYPH #### [facility] CLIA [id number] [address] [place] [address] [place] Glucose Test strip (U) [Mass/Vol] Negative Normal Negative [facility] Comment on above: Order Comment: Speci men Type: BLOOD SPECIMEN Ordering Facility: [facility] Address: [address] [place] [address] Performed By: #### 3 1201-7, 5-3, 11972-3, SYPH #### [facility] CLIA [id number] [address] [place] [address] [place] Hemoglobin Ql (U) Negative Normal Negative [facility] Comment on above: Order Comment: Speci men Type: BLOOD SPECIMEN Ordering Facility: [facility] Address: [address] [place] [address] Performed By: #### 3 1201-7, 3, 24810-0, SYPH #### [facility] CLIA [id number] [address] [place] [address] [place] Ketones Ql (U) Trace Abnormal Negative [facility] Comment on above: Order Comment: Speci men Type: BLOOD SPECIMEN Ordering Facility: [facility] Address: [address] [place] [address] Performed By: #### 3 1201-7, 5194-3, 97723-1, SYPH #### [facility] CLIA [id number] [address] [place] [address] [place] Leukocyte esterase Test strip Ql (U) 1+ Abnormal Negative [facility] Comment on above: Order Comment: Speci men Type: BLOOD SPECIMEN Ordering Facility: [facility] Address: [address] [place] [address] Performed By: #### 3 1201-7, 5-3, 83954-1, SYPH #### [facility] CLIA [id number] [address] [place] [address] [place] Nitrite Ql (U) Negative Normal Negative [facility] Comment on above: Order Comment: Speci men Type: BLOOD SPECIMEN Ordering Facility: [facility] Address: [address] [place] [address] Performed By: #### 3 1201-7, 5195-3, 61036-8, SYPH #### [facility] CLIA [id number] [address] [place] [address] [place] pH (U) 5.0 [pH] Normal 5.0-8.0 [facility] Comment on above: Order Comment: Speci men Type: BLOOD SPECIMEN Ordering Facility: [facility] Address: [address] [place] [address] Performed By: #### 3 1201-7, 5195-3, 66289-3, SYPH #### [facility] CLIA [id number] [address] [place] [address] [place] Protein (U) [Mass/Vol] Negative Normal Negative [facility] Comment on above: Order Comment: Speci men Type: BLOOD SPECIMEN Ordering Facility: [facility] Address: [address] [place] [address] Performed By: #### 3 1201-7, 53, , SYPH #### [facility] CLIA [id number] [address] [place] [address] [place] RBC LM.HPF (Urine sed) [#/Area] 3-5 /HPF Abnormal 0-3 /HPF [facility] Comment on above: Order Comment: Speci men Type: BLOOD SPECIMEN Ordering Facility: [facility] Address: [address] [place] [address] Performed By: #### 3 1201-7, 5195-3, 09487-4, SYPH #### [facility] CLIA [id number] [address] [place] [address] [place] Specific gravity (U) [Rel density] >1.030 High 1.005-1.030 [facility] Comment on above: Order Comment: Speci men Type: BLOOD SPECIMEN Ordering Facility: [facility] Address: [address] [place] [address] Performed By: #### 3 1201-7, 5195-3, 27226-5, SYPH #### [facility] CLIA [id number] [address] [place] [address] Urobilinogen Ql (U) Negative Normal Negative [facility] Comment on above: Order Comment: Speci men Type: BLOOD SPECIMEN Ordering Facility: [facility] Address: [address] [place], [place] [address] Performed By: #### 3 1201-7, 5195-3, 01261-7, SYPH #### [facility] CLIA [id number] [address] [place] [address] [place] WBC LM.HPF (Urine sed) [#/Area] 6-10 /HPF Abnormal 0-5 /HPF [facility] Comment on above: Order Comment: Speci men Type: BLOOD SPECIMEN Ordering Facility: [facility] Address: [address] [place], [place] [address] Performed By: #### 3 1201-7, 5195-3, 86827-5, SYPH #### [facility] CLIA [id number] [address] [place] [address] [place] ED NOTEon 04-05-2023 ED NOTE HNO ID: [id number] Author: Ten Mao RN Service: Nursing Author Type: Registered Nurse Type: ED Notes Filed: 04/05/2023 9:44 PM Note Text: PT presents to ED with c/o left hip pain, back pain and pelvic pain. Reports hip pain started first this morning. Pain now radiating into back and pelvic area. Endorses nausea. Normal [facility] Basic metabolic 2000 panelon 03-22-2023 Anion gap [Moles/Vol] 7 mmol/L Low 10 - 20 mmol/L [facility] Calcium [Mass/Vol] 8.0 mg/dL Low 8.4 - 10. 2 mg/dL [facility] Chloride [Moles/Vol] 110 mmol/L High 98 - 10 8 mmol/L [facility] Creatinine [Mass/Vol] 0.81 mg/dL 0.40 - 1.10 mg/dL [facility] GFR/1.73 sq M.predicted CKD-EPI (S/P/Bld) [Vol rate/Area] 102 - PINF [facility] Comment on above: Estimated GFR was ca lculated using the 2020 CKD-EPI creatinine equation. Glucose [Mass/Vol] 251 mg/dL High 65 - 99 mg/dL [facility] HCO3 [Moles/Vol] 26 mmol/L 21 - 32 mmol/L [facility] Interpretation and review of laboratory results Abnormal [facility] Potassium [Moles/Vol] 3.2 mmol/L Low 3.5 - 5.1 mmol/L [facility] Sodium [Moles/Vol] 140 mmol/L 135 - 145 mmol/L [facility] Urea nitrogen [Mass/Vol] 8 mg/dL 8 - 25 mg/dL [facility] Urea nitrogen/Creatinine [Mass ratio] 9.9 mg/mg Low 10.0 - 20.0 [facility] has implemented the eGFR calculation approach that does not have a coefficient for race that conforms to the NKF-ASN Task Force Recommendations. [facility] CBC Auto Differentialon 02-26 Basophils (Bld) [#/Vol] 0.02 10*3/uL [facility] Basophils/100 WBC (Bld) 0.2 % [facility] Eosinophils (Bld) [#/Vol] 0.04 10*3/uL [facility] Eosinophils/100 WBC (Bld) 0.4 % [facility] Erythrocyte distribution width (RBC) [Entitic vol] 13.9 % 11.6 - 14.8 % [facility] Hematocrit (Bld) [Volume fraction] 37.4 % 36.0 - 46.0 % [facility] Hemoglobin (Bld) [Mass/Vol] 12.4 g/dL 12.0 - 16.0 g/dL [facility] Immature granulocytes (Bld) [#/Vol] 0.07 10*3/uL [facility] Immature granulocytes/100 WBC (Bld) 0.70 % [facility] Comment on above: The IG parameter is the percentage of metamyelocytes, myelocytes and promyelocytes. An immature granulocyte count (IG) of 1% or more suggests the possibility of infection, an IG count of 3% is very likely related to an infection. Lymphocytes (Bld) [#/Vol] 2.55 10*3/uL [facility] Lymphocytes/100 WBC (Bld) 27.1 % [facility] MCH (RBC) [Entitic mass] 29.1 pg 26.0 - 34.0 pg [facility] MCHC (RBC) [Mass/Vol] 33.2 g/dL 31.0 - 37.0 g/dL [facility] MCV (RBC) [Entitic vol] 87.8 fL 80.0 - 100.0 fL [facility] Monocytes (Bld) [#/Vol] 0.57 10*3/uL [facility] Monocytes/100 WBC (Bld) 6.1 % [facility] Neutrophils (Bld) [#/Vol] 6.16 10*3/uL [facility] Neutrophils/100 WBC (Bld) 65.5 % [facility] Nucleated RBC (Bld) [#/Vol] 0.00 10*3/uL [facility] Nucleated RBC/100 WBC (Bld) [Ratio] 0.0 % [facility] Platelet mean volume (Bld) [Entitic vol] 11.8 fL 9.4 - 12.4 fL [facility] Platelets (Bld) [#/Vol] 165 10*3/uL [facility] RBC (Bld) [#/Vol] 4.26 10*6/uL [facility] WBC (Bld) [#/Vol] 9.41 10*3/uL [facility] Glucose (Bld) [Mass/Vol]on 0 03-22-2023 Glucose [Mass/Vol] 101 mg/dL High 65 - 99 mg/dL [facility] Interpretation and review of laboratory results Abnormal [facility] Glucose [Mass/Vol] 117 mg/dL High 65 - 99 mg/dL [facility] Interpretation and review of laboratory results Abnormal [facility] Glucose [Mass/Vol] 182 mg/dL High 65 - 99 mg/dL [facility] Interpretation and review of laboratory results Abnormal [facility] Glucose [Mass/Vol] 168 mg/dL High 65 - 99 mg/dL [facility] Interpretation and review of laboratory results Abnormal [facility] Glucose [Mass/Vol] 77 mg/dL 65 - 99 mg/dL [facility] Interpretation and review of laboratory results Normal [facility] Glucose [Mass/Vol] 42 mg/dL Low 65 - 99 mg/dL [facility] Interpretation and review of laboratory results Abnormal [facility] Magnesium Levelon 03-22-2023 Magnesium [Mass/Vol] 2.0 mg/dL 1.6 - 2 .4 mg/dL [facility] Magnesium [Mass/Vol]on 03-22 Interpretation and review of laboratory results Normal [facility] No Panel Informationon 03-22 [facility] Phosphate [Mass/Vol]on 03-22 Interpretation and review of laboratory results Abnormal [facility] Phosphoruson 03-22-2023 Phosphate [Mass/Vol] 2.4 mg/dL Low 2.7 - 4 .5 mg/dL [facility] CBC panel Auto (Bld)on 03-21 Erythrocyte distribution width (RBC) [Entitic vol] 14.0 % 11.6 - 14.8 % [facility] Hematocrit (Bld) [Volume fraction] 35.7 % Low 36.0 - 46.0 % [facility] Hemoglobin (Bld) [Mass/Vol] 11.7 g/dL Low 12.0 - 16.0 g/dL [facility] Interpretation and review of laboratory results Abnormal [facility] MCH (RBC) [Entitic mass] 29.2 pg 26.0 - 34.0 pg [facility] MCHC (RBC) [Mass/Vol] 32.8 g/dL 31.0 - 37.0 g/dL [facility] MCV (RBC) [Entitic vol] 89.0 fL 80.0 - 100.0 fL [facility] Nucleated RBC (Bld) [#/Vol] 0.00 10*3/uL [facility] Nucleated RBC/100 WBC (Bld) [Ratio] 0.0 % [facility] Platelet mean volume (Bld) [Entitic vol] 12.9 fL High 9.4 - 12.4 fL [facility] Platelets (Bld) [#/Vol] 169 10*3/uL [facility] RBC (Bld) [#/Vol] 4.01 10*6/uL [facility] e[facility] WBC (Bld) [#/Vol] 20.82 10*3/uL High [facility] Comprehensive metabolic 2000 panelon 03-21-2023 Albumin [Mass/Vol] 3.3 g/dL 3.2 - 5.2 g/dL [facility] ALP [Catalytic activity/Vol] 71 U/L 40 - 140 U/L [facility] ALT [Catalytic activity/Vol] 20 U/L 14 - 65 U/L [facility] Anion gap [Moles/Vol] 16 mmol/L 10 - 20 mmol/L [facility] AST [Catalytic activity/Vol] 10 U/L 0 - 45 U/L [facility] Bilirubin [Mass/Vol] 0.8 mg/dL 0.0 - 1 .3 mg/dL [facility] Calcium [Mass/Vol] 8.4 mg/dL 8.4 - 10. 2 mg/dL [facility] Chloride [Moles/Vol] 111 mmol/L High 98 - 10 8 mmol/L [facility] Creatinine [Mass/Vol] 0.81 mg/dL 0.40 - 1.10 mg/dL [facility] GFR/1.73 sq M.predicted CKD-EPI (S/P/Bld) [Vol rate/Area] 102 - PINF [facility] Comment on above: Estimated GFR was ca lculated using the 2020 CKD-EPI creatinine equation. Glucose [Mass/Vol] 162 mg/dL High 65 - 99 mg/dL [facility] HCO3 [Moles/Vol] 18 mmol/L Low 21 - 32 mmol/L [facility] Interpretation and review of laboratory results Abnormal [facility] Potassium [Moles/Vol] 3.6 mmol/L 3.5 - 5.1 mmol/L [facility] Protein [Mass/Vol] 6.3 g/dL 6.0 - 8.0 g/dL [facility] Sodium [Moles/Vol] 141 mmol/L 135 - 145 mmol/L [facility] Urea nitrogen [Mass/Vol] 11 mg/dL 8 - 25 mg/dL [facility] Urea nitrogen/Creatinine [Mass ratio] 13.6 mg/mg 10.0 - 20.0 [facility] has implemented the eGFR calculation approach that does not have a coefficient for race that conforms to the NKF-ASN Task Force Recommendations. [facility] Glucose (Bld) [Mass/Vol]on 0 03-21-2023 Glucose [Mass/Vol] 179 mg/dL High 65 - 99 mg/dL [facility] Interpretation and review of laboratory results Abnormal [facility] Glucose [Mass/Vol] 102 mg/dL High 65 - 99 mg/dL [facility] Interpretation and review of laboratory results Abnormal [facility] Glucose [Mass/Vol] 80 mg/dL 65 - 99 mg/dL [facility] Interpretation and review of laboratory results Normal [facility] Glucose [Mass/Vol] 113 mg/dL High 65 - 99 mg/dL [facility] Interpretation and review of laboratory results Abnormal [facility] Magnesiumon 03-21-2023 Magnesium [Mass/Vol] 2.4 mg/dL 1.6 - 2 .4 mg/dL [facility] Magnesium [Mass/Vol]on 03-21 Interpretation and review of laboratory results Normal [facility] No Panel Informationon 03-21 [facility] Phosphate [Mass/Vol]on 03-21 Interpretation and review of laboratory results Normal [facility] Phosphoruson 03-21-2023 Phosphate [Mass/Vol] 2.7 mg/dL 2.7 - 4 .5 mg/dL [facility] Basic metabolic 1997 panelon 03-20-2023 Anion gap [Moles/Vol] 12 mmol/L 10 - 20 mmol/L [facility] Chloride [Moles/Vol] 108 mmol/L 98 - 10 8 mmol/L [facility] Creatinine [Mass/Vol] 0.98 mg/dL 0.40 - 1.10 mg/dL [facility] GFR/1.73 sq M.predicted CKD-EPI (S/P/Bld) [Vol rate/Area] 81 - PINF [facility] Comment on above: Estimated GFR was ca lculated using the 2020 CKD-EPI creatinine equation. Glucose [Mass/Vol] 247 mg/dL High 65 - 99 mg/dL [facility] HCO3 [Moles/Vol] 24 mmol/L 21 - 32 mmol/L [facility] Potassium [Moles/Vol] 3.5 mmol/L 3.5 - 5.1 mmol/L [facility] Sodium [Moles/Vol] 140 mmol/L 135 - 145 mmol/L [facility] Urea nitrogen [Mass/Vol] 15 mg/dL 8 - 25 mg/dL [facility] Urea nitrogen/Creatinine [Mass ratio] 15.3 mg/mg 10.0 - 20.0 [facility] has implemented the eGFR calculation approach that does not have a coefficient for race that conforms to the NKF-ASN Task Force Recommendations. [facility] Basic metabolic 1999 panelon 03-20-2023 Anion gap [Moles/Vol] 13 mmol/L 10 - 20 mmol/L [facility] Calcium [Mass/Vol] 8.1 mg/dL Low 8.4 - 10. 2 mg/dL [facility] Chloride [Moles/Vol] 106 mmol/L 98 - 10 8 mmol/L [facility] Creatinine [Mass/Vol] 0.86 mg/dL 0.40 - 1.10 mg/dL [facility] GFR/1.73 sq M.predicted CKD-EPI (S/P/Bld) [Vol rate/Area] 95 - PINF [facility] Comment on above: Estimated GFR was ca lculated using the 2020 CKD-EPI creatinine equation. Glucose [Mass/Vol] 316 mg/dL High 65 - 99 mg/dL [facility] HCO3 [Moles/Vol] 21 mmol/L 21 - 32 mmol/L [facility] Interpretation and review of laboratory results Abnormal [facility] Potassium [Moles/Vol] 4.0 mmol/L 3.5 - 5.1 mmol/L [facility] Sodium [Moles/Vol] 136 mmol/L 135 - 145 mmol/L [facility] Urea nitrogen [Mass/Vol] 12 mg/dL 8 - 25 mg/dL [facility] Urea nitrogen/Creatinine [Mass ratio] 14.0 mg/mg 10.0 - 20.0 [facility] has implemented the eGFR calculation approach that does not have a coefficient for race that conforms to the NKF-ASN Task Force Recommendations. [facility] Beta HCG ( test) Ql on 03-20-2023 Interpretation and review of laboratory results Normal [facility] Negative: The result is less than or equal to 5 mIU/mL of HCG. [facility] Beta hydroxybutyrate [Moles/ Vol]on 03-20-2023 Interpretation and review of laboratory results Abnormal [facility] Beta-Hydroxybutyrateon 03-20 Beta hydroxybutyrate [Moles/Vol] 1.8 mmol/L High 0.0 - 0.3 mmol/L [facility] CBC Auto Differentialon 02-26 Basophils (Bld) [#/Vol] 0.04 10*3/uL [facility] Basophils/100 WBC (Bld) 0.4 % [facility] Eosinophils (Bld) [#/Vol] 0.03 10*3/uL [facility] Eosinophils/100 WBC (Bld) 0.3 % [facility] Erythrocyte distribution width (RBC) [Entitic vol] 13.7 % 11.6 - 14.8 % [facility] Hematocrit (Bld) [Volume fraction] 38.9 % 36.0 - 46.0 % [facility] Hemoglobin (Bld) [Mass/Vol] 13.0 g/dL 12.0 - 16.0 g/dL [facility] Immature granulocytes (Bld) [#/Vol] 0.08 10*3/uL [facility] Immature granulocytes/100 WBC (Bld) 0.80 % [facility] Comment on above: The IG parameter is the percentage of metamyelocytes, myelocytes and promyelocytes. An immature granulocyte count (IG) of 1% or more suggests the possibility of infection, an IG count of 3% is very likely related to an infection. Interpretation and review of laboratory results Abnormal [facility] Lymphocytes (Bld) [#/Vol] 2.45 10*3/uL [facility] Lymphocytes/100 WBC (Bld) 23.6 % [facility] MCH (RBC) [Entitic mass] 29.0 pg 26.0 - 34.0 pg [facility] MCHC (RBC) [Mass/Vol] 33.4 g/dL 31.0 - 37.0 g/dL [facility] MCV (RBC) [Entitic vol] 86.6 fL 80.0 - 100.0 fL [facility] Monocytes (Bld) [#/Vol] 0.62 10*3/uL [facility] Monocytes/100 WBC (Bld) 6.0 % [facility] Neutrophils (Bld) [#/Vol] 7.17 10*3/uL High [facility] Neutrophils/100 WBC (Bld) 68.9 % [facility] Nucleated RBC (Bld) [#/Vol] 0.00 10*3/uL [facility] Nucleated RBC/100 WBC (Bld) [Ratio] 0.0 % [facility] Platelet mean volume (Bld) [Entitic vol] 12.5 fL High 9.4 - 12.4 fL [facility] Platelets (Bld) [#/Vol] 160 10*3/uL [facility] RBC (Bld) [#/Vol] 4.49 10*6/uL [facility]alth WBC (Bld) [#/Vol] 10.39 10*3/uL [facility] CT ANGIOGRAM CHEST ABDOMEN P [facility] 03-20-2023 CT ANGIOGRAM CHEST ABDOMEN PELVIS EXAMINATION: [...] Note made of prior appendectomy surgical clips. [employer] Workstation ID: [id number] Dictated by: DAVID MOURA on MonMar 20, 2023 9:50:12 AM EDT Transcribed by: TANNER LOVETT on MonMar 20, 2023 9:59:46 AM EDT Finalized by: DAVID MOURA on MonMar 20, 2023 10:29:33 AM EDT [facility] Comment on above: Order Comment: Injur y/Trauma or Illness?:Illness/Other How long have you had these symptoms (acute/chronic)?:Acute Reason for exam?:chest and abd pain, vomiting Type of Exam?:Initial Additional signs and symptoms?: CT Angiogram Chest Abdomen P [facility] 03-20-2023 1. No acute thoracoabdominal aortic [...] Note made of prior appendectomy surgical clips. [employer] Workstation ID: [id number] [facility] EXAMINATION: CT ANGIOGRAM CHEST ABDOMEN PELVIS HISTORY: [...] Abdominal wall structures appear to be intact. [email or web address] David Kulkarni, DO - 03/20/2023 EXAMINATION: CT [...] appendectomy surgical clips. [employer]TP[employer]cd[employer] Workstation ID: [id number] [facility] Radiology Study observation (narrative) [facility] CT Angiogram Chest Abdomen P elvisOrdered By: David Moura on 03-20-2023 [facility] Work Phone: ECG 12 Leadon 03-20-2023 Siddharth Gagnon MD 03/20/2023 4:45 PM ECG 12 Lead Date/Time: 03/20/2023 4:45 PM Performed by: Siddharth Gagnon MD Authorized by: Mariel Gagnon MD Interpreted by ED attending physician Comparison: not compared with previous ECG Rhythm: sinus rhythm and sinus bradycardia BPM: 56 Conduction: conduction normal ST Segments: ST segments normal T Waves: T waves normal normal ME interval QT Interval: 514 Clinical impression: non-specific ECG and sinus bradycardia [facility] EKGon 03-20-2023 [facility] EKG 12-leadon 03-20-2023 Atrial Rate 56 BPM [facility] P [place] 9 degrees [facility] P-R Interval 130 ms [facility] Q-T Interval 514 ms [facility] QRS Duration 108 ms [facility] QTC Calculation (Bezet) 496 ms [facility] R [place] 51 degrees [facility] T [place] 42 degrees [facility] Ventricular Rate 56 BPM [facility] Sinus bradycardia wi th sinus arrhythmia Prolonged QT Abnormal ECG ECG Cart Interpretation see physician note for interpretation. Confirmed by Zita Dozier ([id number]) on 03/20/2023 1:39:42 PM MUSE [facility] Atrial Rate 73 BPM [facility] P [place] 45 degrees [facility] P-R Interval 136 ms [facility] Q-T Interval 398 ms [facility] QRS Duration 92 ms [facility] QTC Calculation (Bezet) 438 ms [facility] R [place] 83 degrees [facility] T [place] 53 degrees [facility] Ventricular Rate 73 BPM [facility] Mariel Gagnon M D 03/21/2023 2:39 PM EKG 12-lead Date/Time: 03/20/2023 6:02 AM Performed by: Mariel Gagnon MD Authorized by: Mariel Gagnon MD Interpreted by ED attending physician Rhythm: sinus rhythm BPM: 73 QRS axis: normal Clinical impression: normal ECG MUSE [facility] Glucose (Bld) [Mass/Vol]on 0 03-20-2023 Glucose [Mass/Vol] 245 mg/dL High 65 - 99 mg/dL [facility] Interpretation and review of laboratory results Abnormal [facility] Glucose [Mass/Vol] 284 mg/dL High 65 - 99 mg/dL [facility] Interpretation and review of laboratory results Abnormal [facility] Glucose [Mass/Vol] 406 mg/dL Critically high 65 - 99 mg/d L [facility] Interpretation and review of laboratory results Abnormal [facility] Critical result acte d upon time of test. Test performed at bedside. [facility] HCG (QUALITATIVE)on 03-20-20 Beta HCG ( test) Ql Negative Negative [facility] HbA1c (Bld) [Mass fraction]O rdered By: Destinee Baez on 03-20-2023 Average glucose Estimated from glycated hemoglobin (Bld) [Mass/Vol] 160 mg/dL High 68 - 114 mg/dL [facility] Interpretation and review of laboratory results Abnormal [facility] Normal: 4.0% - 5.6% Increased risk for diabetes: 5.7% - 6.4% Diabetes: >= 6.5% Pediatrics: No established reference range Estimated average glucose: 68-114 mg/dL [facility] Hemoglobin [id number] By: Georgina Baez on 03-20-2023 HbA1c (Bld) [Mass fraction] 7.2 % High 4.0 - 5.6 % [facility] Hepatic function 2000 panelo n 03-20-2023 Albumin [Mass/Vol] 3.8 g/dL 3.2 - 5.2 g/dL [facility] ALP [Catalytic activity/Vol] 84 U/L 40 - 140 U/L [facility] ALT [Catalytic activity/Vol] 26 U/L 14 - 65 U/L [facility] AST [Catalytic activity/Vol] 13 U/L 0 - 45 U/L [facility] Bilirubin [Mass/Vol] 0.6 mg/dL 0.0 - 1 .3 mg/dL [facility] Bilirubin.conjugated [Mass/Vol] 0.1 mg/dL 0.0 - 0.4 mg/dL [facility] Interpretation and review of laboratory results Normal [facility] Protein [Mass/Vol] 7.2 g/dL 6.0 - 8.0 g/dL [facility] Light Blue Topon 03-20-2023 Extra Tube Hold for add-ons. [facility] Comment on above: Auto resulted. [facility] Lipaseon 03-20-2023 Lipase [Catalytic activity/Vol] 53 U/L Low 73 - 393 U/L [facility] Magnesium Levelon 03-20-2023 Magnesium [Mass/Vol] 1.8 mg/dL 1.6 - 2 .4 mg/dL [facility] Magnesium [Mass/Vol]on 03-20 Interpretation and review of laboratory results Normal [facility] No Panel Informationon 03-20 Interpretation and review of laboratory results Abnormal [facility] UrinalysisOrdered By: Alysha Ramos on 03-20-2023 Bacteria Auto Ql (U) None Seen None Seen /hpf [facility] Bilirubin Ql (U) Negative Negative [facility] Clarity Refractometry automated (U) Cloudy Abnormal Clear [facility] Color (U) Yellow Colorless, Yellow [facility] Glucose Auto test strip (U) [Mass/Vol] >=500 Abnormal Negative mg/dL [facility] Hemoglobin Auto test strip Ql (U) Negative Negative [facility] Interpretation and review of laboratory results Abnormal [facility] Ketones (U) [Mass/Vol] mg/dL Abnormal Negative mg/d L [facility] Leukocyte esterase Auto test strip Ql (U) Negative Negative [facility] h Mucus Auto (Urine sed) [#/Area] Rare None Seen, Rare /lpf [facility] Nitrite Auto test strip Ql (U) Negative Negative [facility] pH (U) 7.0 [pH] 5.0 - 7.0 [facility] Protein (U) [Mass/Vol] Negative Negative mg/d L [facility] RBC Auto (Urine sed) [#/Area] 1 [facility] Specific gravity (U) [Rel density] 1.023 1.005 - 1.025 [facility] Urobilinogen (U) [Mass/Vol] mg/dL NINF - 2.0 mg/dL [facility] WBC Auto (Urine sed) [#/Area] 3 [facility] Microscopic examination is performed on all urinalysis samples and only positive findings are reported. The test for blood on the chemical analytic portion of urinalysis may also be positive due to hemoglobinuria and myoglobinuria and if red blood cells are present they are quantified by microscopic examination. [facility] CNPNon 02-26-2023 CNPN Telephone (AKURFL) KATHLEEN VILLA ([id number]) 1995 F CHT Date Time Provider Department [...] Status:Closed by VERITO BORDEN on 02/26/23 Normal [facility] Basic metabolic 2000 panelon 02-04-2023 Anion gap [Moles/Vol] 8 mmol/L Normal 5-16 [facility] Comment on above: Order Comment: Speci men Type: BLOOD SPECIMEN Ordering Facility: [facility] Address: [address] [place] [address] Performed By: #### 3 1201-7, 5195-3, 99763-6, SYPH #### [facility] CLIA [id number] [address] [place] [address] [place] Calcium [Mass/Vol] 8.3 mg/dL Low 8.5-10.5 [facility] Comment on above: Order Comment: Speci men Type: BLOOD SPECIMEN Ordering Facility: [facility] Address: [address] [place] [address] Performed By: #### 3 1201-7, 5195-3, 56162-2, SYPH #### [facility] CLIA [id number] [address] [place] [address] [place] Chloride [Moles/Vol] 106 mmol/L Normal 98-107 [facility] Comment on above: Order Comment: Speci men Type: BLOOD SPECIMEN Ordering Facility: [facility] Address: [address] [place] [address] Performed By: #### 3 1201-7, 5195-3, 79187-7, SYPH #### [facility] CLIA [id number] [address] [place] [address] [place] CO2 [Moles/Vol] 27 mmol/L Normal 21-32 [facility] Comment on above: Order Comment: Speci men Type: BLOOD SPECIMEN Ordering Facility: [facility] Address: [address] [place] [address] Performed By: #### 3 1201-7, 5195-3, 30852-3, SYPH #### [facility] CLIA [id number] [address] [place], [place] [id number] [place] Creatinine [Mass/Vol] 0.58 mg/dL Normal 0.51-0.95 [facility] Comment on above: Order Comment: Jon russ Type: BLOOD SPECIMEN Ordering Facility: [facility] Address: [address] [phone] Result Comment: Cleopatra ents receiving either N-Acetylcysteine (NAC) or Metamizole prior to venipuncture, may have falsely depressed results. Performed By: #### 3 1201-7, 5195-3, 88908-4, SYPH #### [facility] CLIA [id number] [address] [place] [address] [place] ESTIMATED GLOMERULAR FILTRATION RATE 127 mL/min/1.73m??? Normal >=60 [facility] Comment on above: Order Comment: Jon russ Type: BLOOD SPECIMEN Ordering Facility: [facility] Address: [address] [place], [place] [phone] Result Comment: Janett mated Glomerular Filtration Rate [...] GFR. Performed By: #### 3 1201-7, 5195-3, 42579-7, SYPH #### [facility] CLIA [id number] [address] [place] [address] [place] Glucose [Mass/Vol] 271 mg/dL High 70-100 [facility] Comment on above: Order Comment: Jon russ Type: BLOOD SPECIMEN Ordering Facility: [facility] Address: [address] [phone] Result Comment: The [employer] Diabetes Association (ADA) provides guidance for cutoff [...] Standards of Medical Care in Diabetes 2016, Indian Diabetes Association. Diabetes Care. 2016.39(Suppl 1). Results may be falsely elevated after the administration of Sulfapyridine. Results may be falsely depressed after the administration of Sulfasalazine. Performed By: #### 3 1201-7, 5195-3, 51786-9, SYPH #### [facility] CLIA [id number] [address] [place] [address] [place] Potassium [Moles/Vol] 3.4 mmol/L Low 3.5-5.1 [facility] Comment on above: Order Comment: Jon russ Type: BLOOD SPECIMEN Ordering Facility: [facility] Address: [address] [place] [address] Performed By: #### 3 1201-7, 5195-3, 11344-8, SYPH #### [facility] CLIA [id number] [address] [place] [address] [place] Sodium [Moles/Vol] 141 mmol/L Normal 136-145 [facility] Comment on above: Order Comment: Jon russ Type: BLOOD SPECIMEN Ordering Facility: [facility] Address: [address] [place] [address] Performed By: #### 3 1201-7, 5195-3, 43194-0, SYPH #### [facility] CLIA [id number] [address] [place] [address] [place] Urea nitrogen [Mass/Vol] 6 mg/dL Low 7-26 [facility] Comment on above: Order Comment: Jon russ Type: BLOOD SPECIMEN Ordering Facility: [facility] Address: [address] [place] [address] Performed By: #### 3 1201-7, 5195-3, 98984-0, SYPH #### [facility] CLIA [id number] [address] [place] [address] [place] Anion gap [Moles/Vol] 7 mmol/L Normal 5-16 [facility] Comment on above: Order Comment: Speci men Type: BLOOD SPECIMEN Ordering Facility: [facility] Address: [address] [place] [address] Performed By: #### 3 1201-7, 5195-3, 52447-2, SYPH #### [facility] CLIA [id number] [address] [place] [address] [place] Calcium [Mass/Vol] 8.0 mg/dL Low 8.5-10.5 [facility] Comment on above: Order Comment: Speci men Type: BLOOD SPECIMEN Ordering Facility: [facility] Address: [address] [place] [address] Performed By: #### 3 1201-7, 5195-3, 14728-5, SYPH #### [facility] CLIA [id number] [address] [place] [address] [place] Chloride [Moles/Vol] 106 mmol/L Normal 98-107 [facility] Comment on above: Order Comment: Speci men Type: BLOOD SPECIMEN Ordering Facility: [facility] Address: [address] [place] [address] Performed By: #### 3 1201-7, 5-3, 01257-5, SYPH #### [facility] CLIA [id number] [address] [place] [address] [place] CO2 [Moles/Vol] 27 mmol/L Normal 21-32 [facility] Comment on above: Order Comment: Speci men Type: BLOOD SPECIMEN Ordering Facility: [facility] Address: [address] [place] [address] Performed By: #### 3 1201-7, 5195-3, 04016-0, SYPH #### [facility] CLIA [id number] [address] [place] [address] [place] Creatinine [Mass/Vol] 0.61 mg/dL Normal 0.51-0.95 [facility] Comment on above: Order Comment: Speci men Type: BLOOD SPECIMEN Ordering Facility: [facility] Address: [address] [phone] Result Comment: Cleopatra ents receiving either N-Acetylcysteine (NAC) or Metamizole prior to venipuncture, may have falsely depressed results. Performed By: #### 3 1201-7, 5195-3, 13871-2, SYPH #### [facility] CLIA [id number] [address] [place] [address] [place] ESTIMATED GLOMERULAR FILTRATION RATE 125 mL/min/1.73m??? Normal >=60 [facility] Comment on above: Order Comment: Jon russ Type: BLOOD SPECIMEN Ordering Facility: [facility] Address: [address] [place] [address] Result Comment: Janett mated Glomerular Filtration Rate [...] GFR. Performed By: #### 3 1201-7, 5195-3, 59456-9, SYPH #### [facility] CLIA [id number] [address] [place] [address] [place] Glucose [Mass/Vol] 269 mg/dL High 70-100 [facility] Comment on above: Order Comment: Jon russ Type: BLOOD SPECIMEN Ordering Facility: [facility] Address: [address] [phone] Result Comment: The Indian Diabetes Association (ADA) provides guidance for cutoff [...] Standards of Medical Care in Diabetes 2016, [employer] Diabetes Association. Diabetes Care. 2016.39(Suppl 1). Results may be falsely elevated after the administration of Sulfapyridine. Results may be falsely depressed after the administration of Sulfasalazine. Performed By: #### 3 1201-7, 5195-3, 27320-7, SYPH #### [facility] CLIA [id number] [address] [place] [address] [place] Potassium [Moles/Vol] 3.5 mmol/L Normal 3.5-5.1 [facility] Comment on above: Order Comment: Belindai jeb Type: BLOOD SPECIMEN Ordering Facility: [facility] Address: [address] [place] [address] Performed By: #### 3 1201-7, 5195-3, 47847-3, SYPH #### [facility] CLIA [id number] [address] [place] [address] [place] Sodium [Moles/Vol] 140 mmol/L Normal 136-145 [facility] Comment on above: Order Comment: Belindai jeb Type: BLOOD SPECIMEN Ordering Facility: [facility] Address: [address] [place] [address] Performed By: #### 3 1201-7, 5195-3, 55612-7, SYPH #### [facility] CLIA [id number] [address] [place] [address] [place] Urea nitrogen [Mass/Vol] 6 mg/dL Low 7- [facility] Comment on above: Order Comment: Belindai jeb Type: BLOOD SPECIMEN Ordering Facility: [facility] Address: [address] [place] [address] [address] Performed By: #### 3 1201-7, 5195-3, 76089-8, SYPH #### [facility] CLIA [id number] [address] [place] [address] [place] CBC W Auto Differential pane l (Bld)on 02-04-2023 Basophils (Bld) [#/Vol] 0.04 10*3/uL Normal <0.11 [facility] Comment on above: Order Comment: Speci men Type: BLOOD SPECIMEN Ordering Facility: [facility] Address: [address] [address] Performed By: #### 3 1201-7, 5194-3, 36832-1, SYPH #### [facility] CLIA [id number] [address] [place] [address] [place] Basophils/100 WBC (Bld) 0.4 % Normal [facility] Comment on above: Order Comment: Speci men Type: BLOOD SPECIMEN Ordering Facility: [facility] Address: [address] [address] Performed By: #### 3 1201-7, 5194-3, 29093-5, SYPH #### [facility] CLIA [id number] [address] [place] [address] [place] Differential cell count method Nom (Bld) Auto Normal [facility] Comment on above: Order Comment: Speci men Type: BLOOD SPECIMEN Ordering Facility: [facility] Address: [address] [address] Performed By: #### 3 1201-7, 5194-3, 89364-1, SYPH #### [facility] CLIA [id number] [address] [place] [address] [place] Eosinophils (Bld) [#/Vol] 0.04 10*3/uL Normal <0.46 [facility] Comment on above: Order Comment: Speci men Type: BLOOD SPECIMEN Ordering Facility: [facility] Address: [address] [address] Performed By: #### 3 1201-7, 5-3, 15565-2, SYPH #### [facility] CLIA [id number] [address] [place] [address] [place] Eosinophils/100 WBC (Bld) 0.4 % Normal [facility] Comment on above: Order Comment: Speci men Type: BLOOD SPECIMEN Ordering Facility: [facility] Address: [address] [address] Performed By: #### 3 1201-7, 5194-3, 74357-8, SYPH #### [facility] CLIA [id number] [address] [place] [address] [place] Erythrocyte distribution width (RBC) [Ratio] 13.3 % Normal 11.5-15.0 [facility] Comment on above: Order Comment: Speci men Type: BLOOD SPECIMEN Ordering Facility: [facility] Address: [address] [address] Performed By: #### 3 1201-7, 5-3, 56615-6, SYPH #### [facility] CLIA [id number] [address] [place] [address] [place] Hematocrit (Bld) [Volume fraction] 34.5 % Low 36.0-46.0 [facility] Comment on above: Order Comment: Speci men Type: BLOOD SPECIMEN Ordering Facility: [facility] Address: [address] [place] [address] Performed By: #### 3 1201-7, 5194-3, 73902-8, SYPH #### [facility] CLIA [id number] [address] [place] [address] [place] Hemoglobin (Bld) [Mass/Vol] 11.6 g/dL Normal 11.5-15.5 [facility] Comment on above: Order Comment: Speci men Type: BLOOD SPECIMEN Ordering Facility: [facility] Address: [address] [address] Performed By: #### 3 1201-7, 5194-3, 01492-3, SYPH #### [facility] CLIA [id number] [address] [place] [address] [place] Immature granulocytes (Bld) [#/Vol] 0.10 10*3/uL High <0.10 [facility] Comment on above: Order Comment: Speci men Type: BLOOD SPECIMEN Ordering Facility: [facility] Address: [address] [place] [address] Performed By: #### 3 1201-7, 5194-3, 74867-3, SYPH #### [facility] CLIA [id number] [address] [place] [address] [place] Immature granulocytes/100 WBC (Bld) 0.9 % Normal [facility] Comment on above: Order Comment: Speci men Type: BLOOD SPECIMEN Ordering Facility: [facility] Address: [address] [place] [address] Performed By: #### 3 1201-7, 5195-3, 49990-3, SYPH #### [facility] CLIA [id number] [address] [place] [address] [place] Lymphocytes (Bld) [#/Vol] 2.41 10*3/uL Normal 1.00-4.00 [facility] Comment on above: Order Comment: Speci men Type: BLOOD SPECIMEN Ordering Facility: [facility] Address: [address] [place] [address] Performed By: #### 3 1201-7, 5-3, 67210-6, SYPH #### [facility] CLIA [id number] [address] [place] [address] Lymphocytes/100 WBC (Bld) 22.3 % Normal [facility] Comment on above: Order Comment: Speci men Type: BLOOD SPECIMEN Ordering Facility: [facility] Address: [address] [place] [address] Performed By: #### 3 1201-7, 5195-3, 57581-3, SYPH #### [facility] CLIA [id number] [address] [place] [address] [place] MCH (RBC) [Entitic mass] 29.1 pg Normal 26.0-34.0 [facility] Comment on above: Order Comment: Speci men Type: BLOOD SPECIMEN Ordering Facility: [facility] Address: [address] [place] [address] Performed By: #### 3 1201-7, 5195-3, 82348-4, SYPH #### [facility] CLIA [id number] [address] [place] [address] [place] MCHC (RBC) [Mass/Vol] 33.6 g/dL Normal 30.5-36.0 [facility] Comment on above: Order Comment: Speci men Type: BLOOD SPECIMEN Ordering Facility: [facility] Address: [address] [place] [address] Performed By: #### 3 1201-7, 5195-3, 80161-3, SYPH #### [facility] CLIA [id number] [address] [place] [address] [place] MCV (RBC) [Entitic vol] 86.5 fL Normal 80.0-100.0 [facility] Comment on above: Order Comment: Speci men Type: BLOOD SPECIMEN Ordering Facility: [facility] Address: [address] [place] [address] Performed By: #### 3 1201-7, 5195-3, 42230-8, SYPH #### [facility] CLIA [id number] [address] [place] [address] [place] Monocytes (Bld) [#/Vol] 0.70 10*3/uL Normal <0.87 [facility] Comment on above: Order Comment: Speci men Type: BLOOD SPECIMEN Ordering Facility: [facility] Address: [address] [place] [address] Performed By: #### 3 1201-7, 5195-3, 82932-4, SYPH #### [facility] CLIA [id number] [address] [place] [address] [place] Monocytes/100 WBC (Bld) 6.5 % Normal [facility] Comment on above: Order Comment: Speci men Type: BLOOD SPECIMEN Ordering Facility: [facility] Address: [address] [place] [address] Performed By: #### 3 1201-7, 5-3, 48408-2, SYPH #### [facility] CLIA [id number] [address] [place] [address] [facility] [place] Neutrophils (Bld) [#/Vol] 7.54 10*3/uL High 1.45-7.50 [facility] Comment on above: Order Comment: Speci men Type: BLOOD SPECIMEN Ordering Facility: [facility] Address: [address] [place] [address] Performed By: #### 3 1201-7, 5-3, 43575-0, SYPH #### [facility] CLIA [id number] [address] [place] [address] [place] Neutrophils/100 WBC (Bld) 69.5 % Normal [facility] Comment on above: Order Comment: Speci men Type: BLOOD SPECIMEN Ordering Facility: [facility] Address: [address] [address] Performed By: #### 3 1201-7, 5194-3, 95849-1, SYPH #### [facility] CLIA [id number] [address] [place] [address] [place] Nucleated RBC (Bld) [#/Vol] 10*3/uL Normal <0.01 [facility] Comment on above: Order Comment: Speci men Type: BLOOD SPECIMEN Ordering Facility: [facility] Address: [address] [place] [address] Performed By: #### 3 1201-7, 3, 79074-7, SYPH #### [facility] CLIA [id number] [address] [place] [address] [place] Nucleated RBC/100 WBC (Bld) [Ratio] 0.0 /100 WBC Normal [facility] Comment on above: Order Comment: Speci men Type: BLOOD SPECIMEN Ordering Facility: [facility] Address: [address] [place] [address] Performed By: #### 3 1201-7, 5-3, 84385-8, SYPH #### [facility] CLIA [id number] [address] [place] [address] [place] Platelet mean volume (Bld) [Entitic vol] 11.7 fL Normal 9.0-12.7 [facility] Comment on above: Order Comment: Speci men Type: BLOOD SPECIMEN Ordering Facility: [facility] Address: [address] [place], [place] [phone] Performed By: #### 3 1201-7, 5195-3, 67171-2, SYPH #### [facility] CLIA [id number] [address] [place] [address] [place] Platelets (Bld) [#/Vol] 163 10*3/uL Normal 150-400 [facility] Comment on above: Order Comment: Speci men Type: BLOOD SPECIMEN Ordering Facility: [facility] Address: [address] [place], [place] [address] Performed By: #### 3 1201-7, 5195-3, 45911-7, SYPH #### [facility] CLIA [id number] [address] [place] [address] [place] RBC (Bld) [#/Vol] 3.99 10*6/uL Normal 3.90-5.20 [facility] Comment on above: Order Comment: Speci men Type: BLOOD SPECIMEN Ordering Facility: [facility] Address: [address] [place], [place] [phone] Performed By: #### 3 1201-7, 5195-3, 87521-7, SYPH #### [facility] CLIA [id number] [address] [place] [address] [place] WBC (Bld) [#/Vol] 10.83 10*3/uL Normal 3.70-11.00 [facility] Comment on above: Order Comment: Speci men Type: BLOOD SPECIMEN Ordering Facility: [facility] Address: [address] [place], [place] [address] Performed By: #### 3 1201-7, 5195-3, 33386-1, SYPH #### [facility] CLIA [id number] [address] [place] [address] [place] CNDSon 02-04-2023 CNDS HNO ID: [id number] Author: David Burnett DO Service: Hospital Medicine [...] summary. SPECIALITY SERVICES SEEN DURING HOSPITALIZATION: hospitalist, service writer advisor CHIEF COMPLAINT: DKA REASON FOR HOSPITALIZATION: DKA, gastroparesis FINAL DIAGNOSIS: DKA, gastroparesis OPERATIONS/PROCEDURES DURING HOSPITALIZATION: HOSPITAL COURSE: 27-year-old white female who presented 2 days ago on 01/31 secondary to nausea and vomiting at home. Patient has a known history of diabetic gastroparesis. [facility] She was admitted to [place]. Unfortunately she has not been tolerating p.o. [...] She will cotninue following with her personal online merchandiser outpatient. Follow up with PCP in one [...] long-term current use of insulin ([facility]); Insulin pump status prochlorperazine (COMPAZINE) 10 mg Take 10 mg by mouth every 6 hours as needed. Qty: 15 tablet Refills: 0 Lancets (MICROLET LANCET) lancets Use as instructed to test blood sugar 4 times daily. E10.65 Qty: 400 Each Refills: 3 Associated Diagnoses:Type 1 diabetes mellitus with hyperglycemia, with long-term current use of insulin ([facility]); Insulin pump status blood sugar diagnostic (CONTOUR NEXT TEST STRIPS) test strip Use as instructed to check blood glucose 5 times daily. E10.65 Qty: 500 Strip Refills: 3 Associated Diagnoses:Type 1 diabetes mellitus with hyperglycemia, with long-term current use of insulin (HCC); Insulin p (more content not included)... [facility] ALLIED HEALTHon 02-03-2023 ALLIED HEALTH HNO ID: [id number] Author: Chaplain Craig Service: Spiritual Care Author Type: Personnel Administrator Type: Allied Health Filed: 02/03/2023 11:39 AM Note Text: SPIRITUAL CARE PROGRESS NOTE SERVICE DATE: 02/03/2023 SERVICE TIME: 10:35 am While rounding in ICU, attempted to provided spiritual presence to patient. Patient was busy . No family was present. A costume mistress will follow up. To contact the Spiritual Care Department: Please call [phone]. SIGNATURE: Chaplain Craig PATIENT NAME: Kathleen Villa DATE: February 03, 2023 TIME: 11:37 AM PAGER/CONTACT #: [phone] [facility] Basic metabolic 2000 panelon 02-03-2023 Anion gap [Moles/Vol] 9 mmol/L Normal 5-16 [facility] Comment on above: Order Comment: Speci men Type: BLOOD SPECIMEN Ordering Facility: [facility] Address: [address] [place], [place] [phone] Performed By: #### 3 1201-7, 5195-3, 57444-3, SYPH #### [facility] CLIA [id number] [address] [place] [address] [place] Calcium [Mass/Vol] 8.1 mg/dL Low 8.5-10.5 [facility] Comment on above: Order Comment: Speci men Type: BLOOD SPECIMEN Ordering Facility: [facility] Address: [address] [place], [place] [phone] Performed By: #### 3 1201-7, 5195-3, 61800-7, SYPH #### [facility] CLIA [id number] [address] [place] [address] [place] Chloride [Moles/Vol] 112 mmol/L High 98-107 [facility] Comment on above: Order Comment: Speci men Type: BLOOD SPECIMEN Ordering Facility: [facility] Address: [address] [place], [place] [phone] Performed By: #### 3 1201-7, 5195-3, 82169-8, SYPH #### [facility] CLIA [id number] [address] [place] [address] [place] CO2 [Moles/Vol] 22 mmol/L Normal 21-32 [facility] Comment on above: Order Comment: Speci men Type: BLOOD SPECIMEN Ordering Facility: [facility] Address: [address] [place], [place] [phone] Performed By: #### 3 1201-7, 5195-3, 44581-0, SYPH #### [facility] CLIA [id number] [address] [place] [address] [place] Creatinine [Mass/Vol] 0.57 mg/dL Normal 0.51-0.95 [facility] Comment on above: Order Comment: Speci men Type: BLOOD SPECIMEN Ordering Facility: [facility] Address: [address] [place], [place] [address] Result Comment: Cleopatra ents receiving either N-Acetylcysteine (NAC) or Metamizole prior to venipuncture, may have falsely depressed results. Performed By: #### 3 1201-7, 5195-3, 49998-3, SYPH #### [facility] CLIA [id number] [address] [place] [address] OF [facility] ESTIMATED GLOMERULAR FILTRATION RATE 127 mL/min/1.73m??? Normal >=60 [facility] Comment on above: Order Comment: Speci men Type: BLOOD SPECIMEN Ordering Facility: [facility] Address: [address] [place], [place] [address] Result Comment: Janett mated Glomerular Filtration Rate [...] GFR. Performed By: #### 3 1201-7, 5195-3, 02042-1, SYPH #### [facility] CLIA [id number] [address] [place], [place] [id number] [place] Glucose [Mass/Vol] 135 mg/dL High 70-100 [facility] Comment on above: Order Comment: Speci men Type: BLOOD SPECIMEN Ordering Facility: [facility] Address: [address] [phone] Result Comment: The [employer] (ADA) provides guidance for cutoff [...] Standards of Medical Care in Diabetes 2016, [employer]. Diabetes Care. 2016.39(Suppl 1). Results may be falsely elevated after the administration of Sulfapyridine. Results may be falsely depressed after the administration of Sulfasalazine. Performed By: #### 3 1201-7, 5195-3, 17194-4, SYPH #### [facility] CLIA [id number] [address] [place] [address] [place] Potassium [Moles/Vol] 4.0 mmol/L Normal 3.5-5.1 [facility] Comment on above: Order Comment: Speci men Type: BLOOD SPECIMEN Ordering Facility: [facility] Address: [place] [address] Performed By: #### 3 1201-7, 5195-3, 05431-1, SYPH #### [facility] CLIA [id number] [address] [place] [address] [place] Sodium [Moles/Vol] 143 mmol/L Normal 136-145 [facility] Comment on above: Order Comment: Speci men Type: BLOOD SPECIMEN Ordering Facility: [facility] Address: [place] [address] Performed By: #### 3 1201-7, 5195-3, 06437-5, SYPH #### [facility] CLIA [id number] [address] [place], [place] [address] [facility] Urea nitrogen [Mass/Vol] 8 mg/dL Normal - [facility] Comment on above: Order Comment: Speci men Type: BLOOD SPECIMEN Ordering Facility: [facility] Address: [place] [address] Performed By: #### 3 1201-7, 5195-3, 02476-0, SYPH #### [facility] CLIA [id number] [address] [place], [place] [address] [facility] CASE MGT INIT ASSESon 2022 CASE MGT INIT ASSES HNO ID: [id number] Author: MICHELLE Tobar Service: Social Work Author Type: Painting Worker Type: Care Mgt Initial Assessment Filed: 02/03/2023 2:35 PM Note Text: CARE MANAGEMENT: ASSESSMENT AND DISCHARGE PLAN SERVICE DATE: February 03, 2023 SERVICE TIME: 2:31 PM PCP: Vivi Smith MD Primary Contact: Extended Emergency Contact Information Primary Emergency Contact: Rene Christie [place] Relation: Significant other Admission Status: Inpatient Insurance Provider: [facility] MEDICARE Discharge Planning requested by: Per Department Practice Potential Transition Plans Home Advance Directives Current Advance Directive: None Certified Nursing Attendant Attempted to Assist with AD Completion: Yes [...] Be able to go home, General wellness [place] of Choice Explained: [place] of Choice Given: No Reason Not Given: [...] Patient reports Rene will provide transport at ri. SIGNATURE: MICHELLE Tobar PATIENT NAME: Kathleen Villa DATE: February 03, 2023 TIME: 2:31 PM CONTACT #: [phone] [facility] CBC W Auto Differential pane l (Bld)on 02-03-2023 Basophils (Bld) [#/Vol] 0.05 10*3/uL Normal <0.11 [facility] Comment on above: Order Comment: Speci men Type: BLOOD SPECIMEN Ordering Facility: [facility] Address: [place] [address] Performed By: #### 3 1201-7, 5195-3, 73353-4, SYPH #### [facility] CLIA [id number] [address] [place] [address] [place] Basophils/100 WBC (Bld) 0.3 % [facility] Comment on above: Order Comment: Speci men Type: BLOOD SPECIMEN Ordering Facility: [facility] Address: [address] [address] Performed By: #### 3 1201-7, 5-3, 90046-8, SYPH #### [facility] CLIA [id number] [address] [place] [address] [place] Differential cell count method Nom (Bld) Auto Normal [facility] Comment on above: Order Comment: Speci men Type: BLOOD SPECIMEN Ordering Facility: [facility] Address: [address] [address] Performed By: #### 3 1201-7, 5-3, 76577-2, SYPH #### [facility] CLIA [id number] [address] [place] [address] [place] Eosinophils (Bld) [#/Vol] 10*3/uL Normal <0.46 [facility] Comment on above: Order Comment: Speci men Type: BLOOD SPECIMEN Ordering Facility: [facility] Address: [address] [address] Performed By: #### 3 1201-7, 5-3, 16572-9, SYPH #### [facility] CLIA [id number] [address] [place] [address] [place] Eosinophils/100 WBC (Bld) 0.0 % Normal [facility] Comment on above: Order Comment: Speci men Type: BLOOD SPECIMEN Ordering Facility: [facility] Address: [address] [address] Performed By: #### 3 1201-7, 5-3, 78401-6, SYPH #### [facility] CLIA [id number] [address] [place] [address] [place] Erythrocyte distribution width (RBC) [Ratio] 13.5 % Normal 11.5-15.0 [facility] Comment on above: Order Comment: Speci men Type: BLOOD SPECIMEN Ordering Facility: [facility] Address: [address] [address] Performed By: #### 3 1201-7, 5195-3, 71756-4, SYPH #### [facility] CLIA [id number] [address] [place] [address] [place] Hematocrit (Bld) [Volume fraction] 37.7 % Normal 36.0-46.0 [facility] Comment on above: Order Comment: Speci men Type: BLOOD SPECIMEN Ordering Facility: [facility] Address: [address] [place] [address] Performed By: #### 3 1201-7, 5195-3, 96977-4, SYPH #### [facility] CLIA [id number] [address] [place] [address] [place] Hemoglobin (Bld) [Mass/Vol] 11.8 g/dL Normal 11.5-15.5 [facility] Comment on above: Order Comment: Speci men Type: BLOOD SPECIMEN Ordering Facility: [facility] Address: [address] Performed By: #### 3 1201-7, 5-3, 21813-9, SYPH #### [facility] CLIA [id number] [address] [place] [address] [place] Immature granulocytes (Bld) [#/Vol] 0.16 10*3/uL High <0.10 [facility] Comment on above: Order Comment: Speci men Type: BLOOD SPECIMEN Ordering Facility: [facility] Address: [address] [place] [address] Performed By: #### 3 1201-7, 5195-3, 41449-2, SYPH #### [facility] CLIA [id number] [address] [place] [address] [place] Immature granulocytes/100 WBC (Bld) 1.0 % Normal [facility] Comment on above: Order Comment: Speci men Type: BLOOD SPECIMEN [facility]ing Facility: [facility] [address] [facility] Performed By: #### 3 1201-7, 5195-3, 74842-1, SYPH #### [facility] CLIA [id number] [address] [place] [address] [place] Lymphocytes (Bld) [#/Vol] 1.76 10*3/uL Normal 1.00-4.00 [facility] Comment on above: Order Comment: Speci men Type: BLOOD SPECIMEN Ordering Facility: [facility] Address: [address] [place] [address] Performed By: #### 3 1201-7, 5194-3, 61033-6, SYPH #### [facility] CLIA [id number] [address] [place] [address] [place] Lymphocytes/100 WBC (Bld) 10.7 % Normal [facility] Comment on above: Order Comment: Speci men Type: BLOOD SPECIMEN Ordering Facility: [facility] Address: [address] [place] [address] Performed By: #### 3 1201-7, 5194-3, , SYPH #### [facility] CLIA [id number] [address] [place] [address] [place] MCH (RBC) [Entitic mass] 29.7 pg Normal 26.0-34.0 [facility] Comment on above: Order Comment: Speci men Type: BLOOD SPECIMEN Ordering Facility: [facility] Address: [address] [place] [address] Performed By: #### 3 1201-7, 5194-3, , SYPH #### [facility] CLIA [id number] [address] [place] [address] [place] MCHC (RBC) [Mass/Vol] 31.3 g/dL Normal 30.5-36.0 [facility] Comment on above: Order Comment: Speci men Type: BLOOD SPECIMEN Ordering Facility: [facility] Address: [address] [place] [address] Performed By: #### 3 1201-7, 5194-3, 24198-5, SYPH #### [facility] CLIA [id number] [address] [place] [address] [place] MCV (RBC) [Entitic vol] 95.0 fL Normal 80.0-100.0 [facility] Comment on above: Order Comment: Speci men Type: BLOOD SPECIMEN Ordering Facility: [facility] Address: [address] [place] [address] Performed By: #### 3 1201-7, 5195-3, 56718-2, SYPH #### [facility] CLIA [id number] [address] [place] [address] [place] Monocytes (Bld) [#/Vol] 0.77 10*3/uL Normal <0.87 [facility] Comment on above: Order Comment: Speci men Type: BLOOD SPECIMEN Ordering Facility: [facility] Address: [address] [place] [address] Performed By: #### 3 1201-7, 5195-3, 07248-1, SYPH #### [facility] CLIA [id number] [address] [place] [address] [place] Monocytes/100 WBC (Bld) 4.7 % Normal [facility] Comment on above: Order Comment: Speci men Type: BLOOD SPECIMEN Ordering Facility: [facility] Address: [address] [place] [address] Performed By: #### 3 1201-7, 5195-3, 95304-7, SYPH #### [facility] CLIA [id number] [address] [place], [place] [address] [place] Neutrophils (Bld) [#/Vol] 13.71 10*3/uL High 1.45-7.50 [facility] Comment on above: Order Comment: Speci men Type: BLOOD SPECIMEN Ordering Facility: [facility] Address: [address] [place] [address] Performed By: #### 3 1201-7, 5195-3, 56422-1, SYPH #### [facility] CLIA [id number] [address] [place] [address] [place] Neutrophils/100 WBC (Bld) 83.3 % Normal [facility] Comment on above: Order Comment: Speci men Type: BLOOD SPECIMEN Ordering Facility: [facility] Address: [address] [place] [address] Performed By: #### 3 1201-7, 5-3, 01352-7, SYPH #### [facility] CLIA [id number] [address] [place] [address] [place] Nucleated RBC (Bld) [#/Vol] 10*3/uL Normal <0.01 [facility] Comment on above: Order Comment: Speci men Type: BLOOD SPECIMEN Ordering Facility: [facility] Address: [address] [place] [address] Performed By: #### 3 1201-7, 5-3, 00651-5, SYPH #### [facility] CLIA [id number] [address] [place] [address] [place] Nucleated RBC/100 WBC (Bld) [Ratio] 0.0 /100 WBC Normal [facility] Comment on above: Order Comment: Speci men Type: BLOOD SPECIMEN Ordering Facility: [facility] Address: [address] [place] [address] Performed By: #### 3 1201-7, 5-3, 91355-7, SYPH #### [facility] CLIA [id number] [address] [place] [address] [place] Platelet mean volume (Bld) [Entitic vol] 12.4 fL Normal 9.0-12.7 [facility] Comment on above: Order Comment: Speci men Type: BLOOD SPECIMEN Ordering Facility: [facility] Address: [address] [place] [address] Performed By: #### 3 1201-7, 5194-3, 71392-3, SYPH #### [facility] CLIA [id number] [address] [place] [address] [place] Platelets (Bld) [#/Vol] 144 10*3/uL Low 150-400 [facility] Comment on above: Order Comment: Speci men Type: BLOOD SPECIMEN Ordering Facility: [facility] Address: [address] [place], [place] [address] Performed By: #### 3 1201-7, 5195-3, 15570-5, SYPH #### [facility] CLIA [id number] [address] [place], [place] [address] [place] RBC (Bld) [#/Vol] 3.97 10*6/uL Normal 3.90-5.20 [facility] Comment on above: Order Comment: Speci men Type: BLOOD SPECIMEN Ordering Facility: [facility] Address: [address] [address] Performed By: #### 3 1201-7, 5195-3, 56052-4, SYPH #### [facility] CLIA [id number] [address] [place] [address] [place] WBC (Bld) [#/Vol] 16.45 10*3/uL High 3.70-11.00 [facility] Comment on above: Order Comment: Speci men Type: BLOOD SPECIMEN Ordering Facility: [facility] Address: [address] [place] [address] Performed By: #### 3 1201-7, 5195-3, 43167-9, SYPH #### [facility] CLIA [id number] [address] [place], [place] [address] [place] Comprehensive metabolic 2000 panelon 02-03-2023 Albumin [Mass/Vol] 3.5 g/dL Normal 3.2-5.0 [facility] Comment on above: Order Comment: Speci men Type: BLOOD SPECIMEN Ordering Facility: [facility] Address: [address] [address] Performed By: #### 3 1201-7, 5195-3, 35885-2, SYPH #### [facility] CLIA [id number] [address] [place], [place] [address] [facility] ALP [Catalytic activity/Vol] 82 U/L Normal 45-117 [facility] Comment on above: Order Comment: Speci men Type: BLOOD SPECIMEN Ordering Facility: [facility] Address: [address] Performed By: #### 3 1201-7, 5195-3, 35545-9, SYPH #### [facility] CLIA [id number] [address] [place] [address] [place] [facility] ALT [Catalytic activity/Vol] 19 U/L Normal 13-61 [facility] Comment on above: Order Comment: Speci men Type: BLOOD SPECIMEN Ordering Facility: [facility] Address: [address] [place] [address] Result Comment: Resu lts may be falsely depressed after the administration of Sulfasalazine and/or Sulfapyridine. Performed By: #### 3 1201-7, 5195-3, 36124-2, SYPH #### [facility] CLIA [id number] [address] [place] [address] [place] Anion gap [Moles/Vol] 17 mmol/L High 5-16 [facility] Comment on above: Order Comment: Speci men Type: BLOOD SPECIMEN Ordering Facility: [facility] Address: [address] [place] [address] Performed By: #### 3 1201-7, 5195-3, 50736-4, SYPH #### [facility] CLIA [id number] [address] [place] [address] [place] AST [Catalytic activity/Vol] Normal [facility] Comment on above: Order Comment: Speci jeb Type: BLOOD SPECIMEN Ordering Facility: [facility] Address: [address] [place] [address] Result Comment: Unab le to assay due to interference from hemolysis. Suggest reorder as clinically indicated. Critical or Urgent Result(s) Called at: 04:33:47 on 02/03/2023 by milly. Called to and read back by: CLOVIS Results may be falsely depressed after the administration of Sulfasalazine and/or Sulfapyridine. Performed By: #### 3 1201-7, 5195-3, 89235-5, SYPH #### [facility] CLIA [id number] [address] [place] [address] [place] Bilirubin [Mass/Vol] 1.0 mg/dL Normal 0.2-1.0 [facility] Comment on above: Order Comment: Speci men Type: BLOOD SPECIMEN Ordering Facility: [facility] Address: [address] [place] [address] Performed By: #### 3 1201-7, 5195-3, 46588-6, SYPH #### [facility] CLIA [id number] [address] [place] [address] [place] Calcium [Mass/Vol] 8.5 mg/dL Normal 8.5-10.5 [facility] Comment on above: Order Comment: Speci men Type: BLOOD SPECIMEN Ordering Facility: [facility] Address: [address] [place] [address] Performed By: #### 3 1201-7, 5195-3, 14596-1, SYPH #### [facility] CLIA [id number] [address] [place] [address] [place] Chloride [Moles/Vol] 109 mmol/L High 98-107 [facility] Comment on above: Order Comment: Speci men Type: BLOOD SPECIMEN Ordering Facility: [facility] Address: [address] [place] [address] Performed By: #### 3 1201-7, 5195-3, 28939-3, SYPH #### [facility] CLIA [id number] [address] [place] [address] [place] CO2 [Moles/Vol] 12 mmol/L Low 21-32 [facility] Comment on above: Order Comment: Speci men Type: BLOOD SPECIMEN Ordering Facility: [facility] Address: [address] [place] [address] Performed By: #### 3 1201-7, 5195-3, 32131-5, SYPH #### [facility] CLIA [id number] [address] [place] [address] [place] Creatinine [Mass/Vol] 0.64 mg/dL Normal 0.51-0.95 [facility] Comment on above: Order Comment: Jon russ Type: BLOOD SPECIMEN Ordering Facility: [facility] Address: [address] [id number] Result Comment: Cleopatra ents receiving either N-Acetylcysteine (NAC) or Metamizole prior to venipuncture, may have falsely depressed results. Performed By: #### 3 1201-7, 5195-3, 42252-8, SYPH #### [facility] CLIA [id number] [address] [place] [address] [place] ESTIMATED GLOMERULAR FILTRATION RATE 124 mL/min/1.73m??? Normal >=60 [facility] Comment on above: Order Comment: Jon russ Type: BLOOD SPECIMEN Ordering Facility: [facility] Address: [address] [place], [place] [address] Result Comment: Janett mated Glomerular Filtration Rate [...] GFR. Performed By: #### 3 1201-7, 5195-3, 18198-4, SYPH #### [facility] CLIA [id number] [address] [place] [address] [place] Glucose [Mass/Vol] 252 mg/dL High 70-100 [facility] Comment on above: Order Comment: Jon russ Type: BLOOD SPECIMEN Ordering Facility: [facility] Address: [address] [id number] Result Comment: The [employer] Diabetes [employer] (ADA) provides guidance for cutoff [...] Standards of Medical Care in Diabetes 2016, [employer]. Diabetes Care. 2016.39(Suppl 1). Results may be falsely elevated after the administration of Sulfapyridine. Results may be falsely depressed after the administration of Sulfasalazine. Performed By: #### 3 1201-7, 5195-3, 29599-5, SYPH #### [facility] CLIA [id number] [address] [place] [address] [place] Potassium [Moles/Vol] Normal [facility] Comment on above: Order Comment: Jon russ Type: BLOOD SPECIMEN Ordering Facility: [facility] Address: [address] [place] [address] Result Comment: Unab le to assay due to interference from hemolysis. Suggest reorder as clinically indicated. Critical or Urgent Result(s) Called at: 04:33:11 on 02/03/2023 by milly. Called to and read back by: CLOVIS Performed By: #### 3 1201-7, 5195-3, 63243-9, SYPH #### [facility] CLIA [id number] [address] [place] [address] [place] Protein [Mass/Vol] 5.8 g/dL Low 6.0-8.5 [facility] Comment on above: Order Comment: Jon russ Type: BLOOD SPECIMEN Ordering Facility: [facility] Address: [address] [address] Performed By: #### 3 1201-7, 5195-3, 63457-8, SYPH #### [facility] CLIA [id number] [address] [place] [address] [place] Sodium [Moles/Vol] 138 mmol/L Normal 136-145 [facility] Comment on above: Order Comment: Jon russ Type: BLOOD SPECIMEN Ordering Facility: [facility] Address: [address] [address] Performed By: #### 3 1201-7, 5195-3, 82444-2, SYPH #### [facility] CLIA [id number] [address] [place], [place] [address] [place] Urea nitrogen [Mass/Vol] 10 mg/dL Normal - [facility] Comment on above: Order Comment: Speci men Type: BLOOD SPECIMEN Ordering Facility: [facility] Address: [address] [place] [address] Performed By: #### 3 1201-7, 5195-3, 27393-2, SYPH #### [facility] CLIA [id number] [address] [place] [address] [place] Magnesium SerPl-mCncon 02-03 Magnesium [Mass/Vol] 1.8 mg/dL Normal 1.6-2.6 [facility] Comment on above: Order Comment: Speci men Type: BLOOD SPECIMEN Ordering Facility: [facility] Address: [address] [place] [address] Performed By: #### 3 1201-7, 5195-3, 31994-0, SYPH #### [facility] CLIA [id number] [address] [place], [place] [address] [place] Basic metabolic 2000 panelon 02-02-2023 Anion gap [Moles/Vol] 17 mmol/L High -16 [facility] Comment on above: Order Comment: Speci men Type: BLOOD SPECIMEN Ordering Facility: [facility] Address: [address] [place] [address] Performed By: #### 3 1201-7, 5195-3, 44577-0, SYPH #### [facility] CLIA [id number] [address] [place], [place] [address] [place] Calcium [Mass/Vol] 8.0 mg/dL Low 8.5-10.5 [facility] Comment on above: Order Comment: Speci men Type: BLOOD SPECIMEN Ordering Facility: [facility] Address: [address] [place] [address] Performed By: #### 3 1201-7, 5195-3, 65999-9, SYPH #### [facility] CLIA [id number] [address] [place] [address] [place] Chloride [Moles/Vol] 108 mmol/L High 98-107 [facility] Comment on above: Order Comment: Speci men Type: BLOOD SPECIMEN Ordering Facility: [facility] Address: [address] [place] [address] Performed By: #### 3 1201-7, 5195-3, 91540-4, SYPH #### [facility] CLIA [id number] [address] [place] [address] [place] CO2 [Moles/Vol] 13 mmol/L Low 21-32 [facility] Comment on above: Order Comment: Speci men Type: BLOOD SPECIMEN Ordering Facility: [facility] Address: [address] [place] [address] Performed By: #### 3 1201-7, 5195-3, 04809-9, SYPH #### [facility] CLIA [id number] [address] [place] [address] [place] Creatinine [Mass/Vol] 0.69 mg/dL Normal 0.51-0.95 [facility] Comment on above: Order Comment: Speci men Type: BLOOD SPECIMEN Ordering Facility: [facility] Address: [address] [place] [address] Result Comment: Cleopatra ents receiving either N-Acetylcysteine (NAC) or Metamizole prior to venipuncture, may have falsely depressed results. Performed By: #### 3 1201-7, 5195-3, 73650-0, SYPH #### [facility] CLIA [id number] [address] [place] [address] [place] ESTIMATED GLOMERULAR FILTRATION RATE 121 mL/min/1.73m??? Normal >=60 [facility] Comment on above: Order Comment: Speci men Type: BLOOD SPECIMEN Ordering Facility: [facility] Address: [address] [place] [address] Result Comment: Janett mated Glomerular Filtration Rate [...] GFR. Performed By: #### 3 1201-7, 5195-3, 49560-4, SYPH #### [facility] CLIA [id number] [address] [place], [place] [id number] [place] Glucose [Mass/Vol] 251 mg/dL High 70-100 [facility] [facility] Comment on above: Order Comment: Jon russ Type: BLOOD SPECIMEN Ordering Facility: [facility] Address: [address] [place] [address] Result Comment: The [employer] Diabetes Association (ADA) provides guidance for cutoff [...] Standards of Medical Care in Diabetes 2016, [employer]. Diabetes Care. 2016.39(Suppl 1). Results may be falsely elevated after the administration of Sulfapyridine. Results may be falsely depressed after the administration of Sulfasalazine. Performed By: #### 3 1201-7, 5195-3, 93158-1, SYPH #### [facility] CLIA [id number] [address] [place], [place] [address] [place] Potassium [Moles/Vol] 4.4 mmol/L Normal 3.5-5.1 [facility] Comment on above: Order Comment: Jon russ Type: BLOOD SPECIMEN Ordering Facility: [facility] Address: [address] [place] [address] Performed By: #### 3 1201-7, 5195-3, 44152-4, SYPH #### [facility] CLIA [id number] [address] [place] [address] [place] Sodium [Moles/Vol] 138 mmol/L Normal 136-145 [facility] Comment on above: Order Comment: Speci men Type: BLOOD SPECIMEN Ordering Facility: [facility] Address: [address] [place] [address] Performed By: #### 3 1201-7, 5195-3, 28035-1, SYPH #### [facility] CLIA [id number] [address] [place] [address] [place] Urea nitrogen [Mass/Vol] 12 mg/dL Normal 7-26 [facility] Comment on above: Order Comment: Speci men Type: BLOOD SPECIMEN Ordering Facility: [facility] Address: [address] [place] [address] Performed By: #### 3 1201-7, 5195-3, 51491-6, SYPH #### [facility] CLIA [id number] [address] [place] [address] [place] Anion gap [Moles/Vol] 15 mmol/L Normal 5-16 [facility] Comment on above: Order Comment: Speci men Type: BLOOD SPECIMEN Ordering Facility: [facility] Address: [address] [place] [address] Performed By: #### 3 1201-7, 5195-3, 59583-6, SYPH #### [facility] CLIA [id number] [address] [place] [address] [place] Calcium [Mass/Vol] 8.2 mg/dL Low 8.5-10.5 [facility] Comment on above: Order Comment: Speci men Type: BLOOD SPECIMEN Ordering Facility: [facility] Address: [address] [place] [address] Performed By: #### 3 1201-7, 5195-3, 39701-7, SYPH #### [facility] CLIA [id number] [address] [place] [address] [place] Chloride [Moles/Vol] 113 mmol/L High 98-107 [facility] Comment on above: Order Comment: Speci men Type: BLOOD SPECIMEN Ordering Facility: [facility] Address: [address] [address] Performed By: #### 3 1201-7, 5195-3, 21646-2, SYPH #### [facility] CLIA [id number] [address] [place] [address] [place] CO2 [Moles/Vol] 11 mmol/L Low 21-32 [facility] Comment on above: Order Comment: Speci men Type: BLOOD SPECIMEN Ordering Facility: [facility] Address: [address] [place] [address] Performed By: #### 3 1201-7, 5195-3, 13920-5, SYPH #### [facility] CLIA [id number] [address] [place] [address] [place] Creatinine [Mass/Vol] 0.77 mg/dL Normal 0.51-0.95 [facility] Comment on above: Order Comment: Speci men Type: BLOOD SPECIMEN Ordering Facility: [facility] Address: [address] [place] [address] Result Comment: Cleopatra ents receiving either N-Acetylcysteine (NAC) or Metamizole prior to venipuncture, may have falsely depressed results. Performed By: #### 3 1201-7, 5195-3, 48264-9, SYPH #### [facility] CLIA [id number] [address] [place] [address] [place] ESTIMATED GLOMERULAR FILTRATION RATE 108 mL/min/1.73m??? Normal >=60 [facility] Comment on above: Order Comment: Speci men Type: BLOOD SPECIMEN Ordering Facility: [facility] Address: [address] [place] [address] Result Comment: Janett mated Glomerular Filtration Rate [...] GFR. Performed By: #### 3 1201-7, 5195-3, 24884-4, SYPH #### [facility] CLIA [id number] [address] [place], [place] [address] [place] Glucose [Mass/Vol] 253 mg/dL High 70-100 [facility] Comment on above: Order Comment: Jon russ Type: BLOOD SPECIMEN Ordering Facility: [facility] Address: [address] [id number] Result Comment: The [employer] Diabetes Association (ADA) provides guidance for cutoff [...] Standards of Medical Care in Diabetes 2016, [employer] Diabetes [employer]. Diabetes Care. 2016.39(Suppl 1). Results may be falsely elevated after the administration of Sulfapyridine. Results may be falsely depressed after the administration of Sulfasalazine. Performed By: #### 3 1201-7, 5195-3, 29572-3, SYPH #### [facility] CLIA [id number] [address] [place] [address] [place] Potassium [Moles/Vol] 4.6 mmol/L Normal 3.5-5.1 [facility] Comment on above: Order Comment: Jon russ Type: BLOOD SPECIMEN Ordering Facility: [facility] Address: [address] [phone] Performed By: #### 3 1201-7, 5195-3, 14828-5, SYPH #### [facility] CLIA [id number] [address] [place] [address] [place] Sodium [Moles/Vol] 139 mmol/L Normal 136-145 [facility] Comment on above: Order Comment: Speci men Type: BLOOD SPECIMEN Ordering Facility: [facility] Address: [address] [address] Performed By: #### 3 1201-7, 5195-3, 88827-1, SYPH #### [facility] CLIA [id number] [address] [place], [place] [address] [place] Urea nitrogen [Mass/Vol] 18 mg/dL Normal 7-26 [facility] Comment on above: Order Comment: Speci men Type: BLOOD SPECIMEN Ordering Facility: [facility] Address: [address] [address] Performed By: #### 3 1201-7, 5195-3, 50133-2, SYPH #### [facility] CLIA [id number] [address] [place] [address] [place] Anion gap [Moles/Vol] 19 mmol/L High 5-16 [facility] Comment on above: Order Comment: Speci men Type: SWAB Ordering Facility: [facility] Address: [address] [address] Performed By: #### 3 6902-5 #### [facility] CLIA [id number] [address] [place] [address] [place] Calcium [Mass/Vol] 8.6 mg/dL Normal 8.5-10.5 [facility] Comment on above: Order Comment: Speci men Type: SWAB Ordering Facility: [facility] Address: [address] Performed By: #### 3 6902-5 #### [facility] CLIA [id number] [address] [place] [address] [place] Chloride [Moles/Vol] 108 mmol/L High 98-107 [facility] Comment on above: Order Comment: Speci men Type: SWAB Ordering Facility: [facility] Address: [address] Performed By: #### 3 6902-5 #### [facility] CLIA [id number] [address] [place] [address] [place] CO2 [Moles/Vol] 9 mmol/L Low 21-32 [facility] Comment on above: Order Comment: Speci men Type: SWAB Ordering Facility: [facility] Address: [address] [address] Result Comment: Crit ical or Urgent Result(s) Called at: 10:32:16 on 02/02/2023 by KPW. Called to and read back by: Billie SALEEM Performed By: #### 3 6902-5 #### [facility] CLIA [id number] [address] [place] [address] [place] Creatinine [Mass/Vol] 0.82 mg/dL Normal 0.51-0.95 [facility] Comment on above: Order Comment: Speci men Type: SWAB Ordering Facility: [facility] Address: [address] [place] [address] Result Comment: Cleopatra ents receiving either N-Acetylcysteine (NAC) or Metamizole prior to venipuncture, may have falsely depressed results. Performed By: #### 3 6902-5 #### [facility] CLIA [id number] [address] [place] [address] [place] [facility] ESTIMATED GLOMERULAR FILTRATION RATE 100 mL/min/1.73m??? Normal >=60 [facility] Comment on above: Order Comment: Speci men Type: SWAB Ordering Facility: [facility] Address: [address] [place] [address] Result Comment: Janett mated Glomerular Filtration Rate [...] Performed By: #### 3 6902-5 #### [facility] CLIA [id number] [address] [place] [address] [place] Glucose [Mass/Vol] 336 mg/dL High 70-100 [facility] Comment on above: Order Comment: Speci men Type: SWAB Ordering Facility: [facility] Address: [address] [place] [address] Result Comment: The [employer] Diabetes Association (ADA) provides guidance for cutoff [...] Standards of Medical Care in Diabetes 2016, [employer]. Diabetes Care. 2016.39(Suppl 1). Results may be falsely elevated after the administration of Sulfapyridine. Results may be falsely depressed after the administration of Sulfasalazine. Performed By: #### 3 6902-5 #### [facility] CLIA [id number] [address] [place] [address] [place] Potassium [Moles/Vol] Normal [facility] Comment on above: Order Comment: Speci men Type: SWAB Ordering Facility: [facility] Address: [address] [place] [address] Result Comment: Unab le to assay due to interference from hemolysis. Suggest reorder as clinically indicated. Spoke to Billie SALEEM Performed By: #### 3 6902-5 #### [facility] CLIA [id number] [address] [place] [address] [place] Sodium [Moles/Vol] 136 mmol/L Normal 136-145 [facility] Comment on above: Order Comment: Speci men Type: SWAB Ordering Facility: [facility] Address: [address] [place] [address] Performed By: #### 3 6902-5 #### [facility] CLIA [id number] [address] [place] [address] [place] Urea nitrogen [Mass/Vol] 19 mg/dL Normal 7-26 [facility] Comment on above: Order Comment: Speci men Type: SWAB Ordering Facility: [facility] Address: [address] [address] Performed By: #### 3 6902-5 #### [facility] CLIA [id number] [address] [place] [address] [place] Anion gap [Moles/Vol] 18 mmol/L High 5-16 [facility] Comment on above: Order Comment: Speci men Type: SWAB Ordering Facility: [facility] Address: [address] [address] Performed By: #### 3 6902-5 #### [facility] CLIA [id number] [address] [place] [address] [place] Calcium [Mass/Vol] 8.6 mg/dL Normal 8.5-10.5 [facility] Comment on above: Order Comment: Speci men Type: SWAB Ordering Facility: [facility] Address: [address] [address] Performed By: #### 3 6902-5 #### [facility] CLIA [id number] [address] [place] [address] [place] Chloride [Moles/Vol] 108 mmol/L High 98-107 [facility] Comment on above: Order Comment: Speci men Type: SWAB Ordering Facility: [facility] Address: [address] [address] Performed By: #### 3 6902-5 #### [facility] CLIA [id number] [address] [place] [address] [place] CO2 [Moles/Vol] 12 mmol/L Low 21-32 [facility] Comment on above: Order Comment: Speci men Type: SWAB Ordering Facility: [facility] Address: [address] [address] Performed By: #### 3 6902-5 #### [facility] CLIA [id number] [address] [place] [address] [place] Creatinine [Mass/Vol] 0.75 mg/dL Normal 0.51-0.95 [facility] Comment on above: Order Comment: Jon russ Type: SWAB Ordering Facility: [facility] Address: [address] [address] Result Comment: Cleopatra ents receiving either N-Acetylcysteine (NAC) or Metamizole prior to venipuncture, may have falsely depressed results. Performed By: #### 3 6902-5 #### [facility] CLIA [id number] [address] [place] [address] [place] ESTIMATED GLOMERULAR FILTRATION RATE 111 mL/min/1.73m??? Normal >=60 [facility] Comment on above: Order Comment: Jon russ Type: SWAB Ordering Facility: [facility] Address: [address] [place] [address] Result Comment: Janett mated Glomerular Filtration Rate [...] Performed By: #### 3 6902-5 #### [facility] CLIA [id number] [address] [place] [address] [place] Glucose [Mass/Vol] 421 mg/dL High 70-100 [facility] Comment on above: Order Comment: Jon russ Type: SWAB Ordering Facility: [facility] Address: [address] [address] Result Comment: The [employer] Diabetes Association (ADA) provides guidance for cutoff [...] Standards of Medical Care in Diabetes 2016, [employer]. Diabetes Care. 2016.39(Suppl 1). Results may be falsely elevated after the administration of Sulfapyridine. Results may be falsely depressed after the administration of Sulfasalazine. Performed By: #### 3 6902-5 #### [facility] CLIA [id number] [address] [place] [address] [place] Potassium [Moles/Vol] 4.8 mmol/L Normal 3.5-5.1 [facility] Comment on above: Order Comment: Speci men Type: SWAB Ordering Facility: [facility] Address: [address] [place] [address] Performed By: #### 3 6902-5 #### [facility] CLIA [id number] [address] [place] [address] [place] Sodium [Moles/Vol] 138 mmol/L Normal 136-145 [facility] Comment on above: Order Comment: Speci men Type: SWAB Ordering Facility: [facility] Address: [address] [place] [address] Performed By: #### 3 6902-5 #### [facility] CLIA [id number] [address] [place] [address] [place] Urea nitrogen [Mass/Vol] 20 mg/dL Normal 7-26 [facility] Comment on above: Order Comment: Speci men Type: SWAB Ordering Facility: [facility] Address: [address] [place] [address] Performed By: #### 3 6902-5 #### [facility] CLIA [id number] [address] [place] [address] [place] CBC W Auto Differential pane l (Bld)on 02-02-2023 Basophils (Bld) [#/Vol] 0.03 10*3/uL Normal <0.11 [facility] Comment on above: Order Comment: Speci men Type: BLOOD SPECIMEN Ordering Facility: [facility] Address: [address] [address] Performed By: #### 3 1201-7, 5-3, 52328-3, SYPH #### [facility] CLIA [id number] [address] [place] [address] [place] Basophils/100 WBC (Bld) 0.1 % Normal [facility] Comment on above: Order Comment: Speci men Type: BLOOD SPECIMEN Ordering Facility: [facility] Address: [address] [address] Performed By: #### 3 1201-7, 5-3, 66430-8, SYPH #### [facility] CLIA [id number] [address] [place] [address] [place] Differential cell count method Nom (Bld) Auto Normal [facility] Comment on above: Order Comment: Speci men Type: BLOOD SPECIMEN Ordering Facility: [facility] Address: [address] [address] Performed By: #### 3 1201-7, 5194-3, 93876-3, SYPH #### [facility] CLIA [id number] [address] [place] [address] [place] Eosinophils (Bld) [#/Vol] 10*3/uL Normal <0.46 [facility] Comment on above: Order Comment: Speci men Type: BLOOD SPECIMEN Ordering Facility: [facility] Address: [address] [address] Performed By: #### 3 1201-7, 5194-3, 35779-1, SYPH #### [facility] CLIA [id number] [address] [place] [address] [place] Eosinophils/100 WBC (Bld) 0.0 % Normal [facility] Comment on above: Order Comment: Speci men Type: BLOOD SPECIMEN Ordering Facility: [facility] Address: [address] [address] Performed By: #### 3 1201-7, 5-3, 72897-6, SYPH #### [facility] CLIA [id number] [address] [place] [address] [place] Erythrocyte distribution width (RBC) [Ratio] 14.0 % Normal 11.5-15.0 [facility] Comment on above: Order Comment: Speci men Type: BLOOD SPECIMEN Ordering Facility: [facility] Address: [address] [place] [address] Performed By: #### 3 1201-7, 5194-3, , SYPH #### [facility] CLIA [id number] [address] [place] [address] [place] Hematocrit (Bld) [Volume fraction] 33.8 % Low 36.0-46.0 [facility] Comment on above: Order Comment: Speci men Type: BLOOD SPECIMEN Ordering Facility: [facility] Address: [address] [place] [address] Performed By: #### 3 1201-7, 5194-3, , SYPH #### [facility] CLIA [id number] [address] [place] [address] [place] Hemoglobin (Bld) [Mass/Vol] 10.8 g/dL Low 11.5-15.5 [facility] Comment on above: Order Comment: Speci men Type: BLOOD SPECIMEN Ordering Facility: [facility] Address: [address] [place] [address] Performed By: #### 3 1201-7, 5194-3, , SYPH #### [facility] CLIA [id number] [address] [place] [address] [place] Immature granulocytes (Bld) [#/Vol] 0.19 10*3/uL High <0.10 [facility] Comment on above: Order Comment: Speci men Type: BLOOD SPECIMEN Ordering Facility: [facility] Address: [address] [place] [address] Performed By: #### 3 1201-7, 519-3, 20246-7, SYPH #### [facility] CLIA [id number] [address] [place] [address] [place] Immature granulocytes/100 WBC (Bld) 0.9 % Normal [facility] Comment on above: Order Comment: Speci men Type: BLOOD SPECIMEN Ordering Facility: [facility] Address: [address] [place] [address] Performed By: #### 3 1201-7, 5195-3, 90961-1, SYPH #### [facility] CLIA [id number] [address] [place] [address] [place] Lymphocytes (Bld) [#/Vol] 2.41 10*3/uL Normal 1.00-4.00 [facility] Comment on above: Order Comment: Speci men Type: BLOOD SPECIMEN Ordering Facility: [facility] Address: [address] [place] [address] Performed By: #### 3 1201-7, 5195-3, 84018-6, SYPH #### [facility] CLIA [id number] [address] [place] [address] [place] Lymphocytes/100 WBC (Bld) 11.6 % Normal [facility] Comment on above: Order Comment: Speci men Type: BLOOD SPECIMEN Ordering Facility: [facility] Address: [address] [place] [address] Performed By: #### 3 1201-7, 5195-3, 61552-5, SYPH #### [facility] CLIA [id number] [address] [place] [address] [place] MCH (RBC) [Entitic mass] 29.1 pg Normal 26.0-34.0 [facility] Comment on above: Order Comment: Speci men Type: BLOOD SPECIMEN Ordering Facility: [facility] Address: [address] [place] [address] Performed By: #### 3 1201-7, 5195-3, 84972-9, SYPH #### [facility] CLIA [id number] [address] [place] [address] [place] MCHC (RBC) [Mass/Vol] 32.0 g/dL Normal 30.5-36.0 [facility] Comment on above: Order Comment: Speci men Type: BLOOD SPECIMEN Ordering Facility: [facility] Address: [address] Performed By: #### 3 1201-7, 5195-3, 64163-6, SYPH #### [facility] CLIA [id number] [address] [place] [address] [place] MCV (RBC) [Entitic vol] 91.1 fL Normal 80.0-100.0 [facility] Comment on above: Order Comment: Speci men Type: BLOOD SPECIMEN Ordering Facility: [facility] Address: [address] Performed By: #### 3 1201-7, 5195-3, 40448-6, SYPH #### [facility] CLIA [id number] [address] [place] [address] [place] Monocytes (Bld) [#/Vol] 0.93 10*3/uL High <0.87 [facility] Comment on above: Order Comment: Speci men Type: BLOOD SPECIMEN Ordering Facility: [facility] Address: [address] [place] [address] Performed By: #### 3 1201-7, 5195-3, 09438-8, SYPH #### [facility] CLIA [id number] [address] [place] [address] [place] Monocytes/100 WBC (Bld) 4.5 % Normal [facility] Comment on above: Order Comment: Speci men Type: BLOOD SPECIMEN Ordering Facility: [facility] Address: [address] Performed By: #### 3 1201-7, 5195-3, 70791-7, SYPH #### [facility] CLIA [id number] [address] [place] [address] [place] Neutrophils (Bld) [#/Vol] 17.17 10*3/uL High 1.45-7.50 [facility] Comment on above: Order Comment: Speci men Type: BLOOD SPECIMEN Ordering Facility: [facility] Address: [address] [address] Performed By: #### 3 1201-7, 5-3, 85792-6, SYPH #### [facility] CLIA [id number] [address] [place] [address] [place] Neutrophils/100 WBC (Bld) 82.9 % Normal [facility] Comment on above: Order Comment: Speci men Type: BLOOD SPECIMEN Ordering Facility: [facility] Address: [address] [address] Performed By: #### 3 1201-7, 5-3, 67832-4, SYPH #### [facility] CLIA [id number] [address] [place] [address] [place] Nucleated RBC (Bld) [#/Vol] 10*3/uL Normal <0.01 [facility] Comment on above: Order Comment: Speci men Type: BLOOD SPECIMEN Ordering Facility: [facility] Address: [address] [address] Performed By: #### 3 1201-7, 5194-3, 50487-2, SYPH #### [facility] CLIA [id number] [address] [place] [address] [place] Nucleated RBC/100 WBC (Bld) [Ratio] 0.0 /100 WBC Normal [facility] Comment on above: Order Comment: Speci men Type: BLOOD SPECIMEN Ordering Facility: [facility] Address: [address] Performed By: #### 3 1201-7, 5195-3, 92562-5, SYPH #### [facility] CLIA [id number] [address] [place] [address] [place] Platelet mean volume (Bld) [Entitic vol] 12.0 fL Normal 9.0-12.7 [facility] Comment on above: Order Comment: Speci men Type: BLOOD SPECIMEN Ordering Facility: [facility] Address: [address] [place] [address] Performed By: #### 3 1201-7, 5195-3, 37800-5, SYPH #### [facility] CLIA [id number] [address] [place], [place] [address] [place] Platelets (Bld) [#/Vol] 164 10*3/uL Normal 150-400 [facility] Comment on above: Order Comment: Speci men Type: BLOOD SPECIMEN Ordering Facility: [facility] Address: [address] Performed By: #### 3 1201-7, 5195-3, 07391-4, SYPH #### [facility] CLIA [id number] [address] [place], [place] [address] [place] RBC (Bld) [#/Vol] 3.71 10*6/uL Low 3.90-5.20 [facility] Comment on above: Order Comment: Speci men Type: BLOOD SPECIMEN Ordering Facility: [facility] Address: [address] Performed By: #### 3 1201-7, 5195-3, 21131-9, SYPH #### [facility] CLIA [id number] [address] [place], [place] [address] [facility] OF [place] WBC (Bld) [#/Vol] 20.73 10*3/uL High 3.70-11.00 [facility] Comment on above: Order Comment: Speci men Type: BLOOD SPECIMEN Ordering Facility: [facility] Address: [address] [id number] Performed By: #### 3 1201-7, 5195-3, 97346-6, SYPH #### [facility] CLIA [id number] [address] [place], [place] [address] [facility] OF [place] Gas and Carbon monoxide pane l (BldV)on 02-02-2023 BASE DEFICIT, VENOUS -16 mmol/L Low -2-0 [facility] Comment on above: Order Comment: Speci men Type: SWAB Ordering Facility: [facility] Address: [address] [place], [place] [id number] Performed By: #### 3 6902-5 #### [facility] CLIA [id number] [address] [place] [address] [place] Body temperature 98.6 [degF] Normal [facility] Comment on above: Order Comment: Speci men Type: SWAB Ordering Facility: [facility] Address: [address] [place] [address] Performed By: #### 3 6902-5 #### [facility] CLIA [id number] [address] [place] [address] [place] Calcium.ionized (Bld) [Mass/Vol] 1.14 mmol/L Normal 1.08-1.30 [facility] Comment on above: Order Comment: Speci men Type: SWAB Ordering Facility: [facility] Address: [address] [place] [address] Performed By: #### 3 6902-5 #### [facility] CLIA [id number] [address] [place] [address] OF [place] Carboxyhemoglobin (BldV) [Mass fraction] 1.0 % Normal 0.0-2.0 [facility] Comment on above: Order Comment: Speci men Type: SWAB Ordering Facility: [facility] Address: [address] [place] [address] Result Comment: Carb oxyhemoglobin Reference Range for Smokers: 2.0-8.0% Performed By: #### 3 6902-5 #### [facility] CLIA [id number] [address] [place] [address] [place] CO2 (BldV) [Partial pressure] 22 mm[Hg] Low 42-55 [facility] Comment on above: Order Comment: Speci men Type: SWAB Ordering Facility: [facility] Address: [address] [place] [address] Performed By: #### 3 6902-5 #### [facility] CLIA [id number] [address] [place] [address] [place] Glucose [Mass/Vol] 335 mg/dL High 60-105 [facility] Comment on above: Order Comment: Speci men Type: SWAB Ordering Facility: [facility] Address: [address] [address] Performed By: #### 3 6902-5 #### [facility] CLIA [id number] [address] [place] [address] [place] HCO3 (Bld) [Moles/Vol] 9 mmol/L Low 24-28 [facility] Comment on above: Order Comment: Speci men Type: SWAB Ordering Facility: [facility] Address: [address] [address] Performed By: #### 3 6902-5 #### [facility] CLIA [id number] [address] [place] [address] [place] Hemoglobin (Bld) [Mass/Vol] 13.1 g/dL Normal 11.5-15.5 [facility] Comment on above: Order Comment: Speci men Type: SWAB Ordering Facility: [facility] Address: [address] Performed By: #### 3 6902-5 #### [facility] CLIA [id number] [address] [place] [address] [place] Lactate [Moles/Vol] 1.8 mmol/L Normal 0.5-2.2 [facility] Comment on above: Order Comment: Speci men Type: SWAB Ordering Facility: [facility] Address: [address] Performed By: #### 3 6902-5 #### [facility] CLIA [id number] [address] [place] [address] [place] Methemoglobin (Bld) [Mass fraction] 0.3 % Normal 0.0-1.5 [facility] Comment on above: Order Comment: Speci men Type: SWAB Ordering Facility: [facility] Address: [address] Performed By: #### 3 6902-5 #### [facility] CLIA [id number] [address] [place] [address] [place] O2 THERAPY RA=Room Air Normal [facility] Comment on above: Order Comment: Speci men Type: SWAB Ordering Facility: [facility] Address: [address] [address] Performed By: #### 3 6902-5 #### [facility] CLIA [id number] [address] [place] [address] [place] Oxygen (BldV) [Partial pressure] 93 mm[Hg] High 35-45 [facility] Comment on above: Order Comment: Speci men Type: SWAB Ordering Facility: [facility] Address: [address] [address] Performed By: #### 3 6902-5 #### [facility] IA [id number] [address] [place] [address] [place] Oxyhemoglobin (BldV) [Mass fraction] 94 % Normal 4-98 [facility] Comment on above: Order Comment: Speci men Type: SWAB Ordering Facility: [facility] Address: [address] [address] Performed By: #### 3 6902-5 #### [facility] IA [id number] [address] [place] [address] [place] pH (BldV) 7.24 [pH] Low 7.32-7.42 [facility] Comment on above: Order Comment: Speci men Type: SWAB Ordering Facility: [facility] Address: [address] [address] Performed By: #### 3 6902-5 #### [facility] CLIA [id number] [address] [place] [address] [place] Potassium [Moles/Vol] 5.3 mmol/L Normal 2.5-6.0 [facility] Comment on above: Order Comment: Speci men Type: SWAB Ordering Facility: [facility] Address: [address] [address] Performed By: #### 3 6902-5 #### [facility] CLIA [id number] [address] [place], [place] [address] [place] Sodium [Moles/Vol] 131 mmol/L Low 136-144 [facility] Comment on above: Order Comment: Speci men Type: SWAB Ordering Facility: [facility] Address: [facility] [place] [address] Performed By: #### 3 6902-5 #### [facility] CLIA [id number] [address] [id number] [place] HISTORY PHYSICALon HISTORY PHYSICAL HNO ID: [id number] Author: Yimi Leroy APRN.GRAIN INSPECTOR Service: Critical Care Author Type: Nurse Practitioner Type: HANDP Filed: 02/02/2023 9:48 AM Note Text: [facility] SERVICE DATE: February 02, 2023 SERVICE TIME: 919 Consulting Doctor: Dr Diana CHIEF COMPLAINT: DKA HPI: This is a 27-year-old white female who presented 2 days ago on 01/31 secondary to nausea and vomiting at home. Patient has a known history of diabetic gastroparesis. [facility] She was admitted to [place]. Unfortunately she has not been tolerating p.o. [...] pump (JUSTIN (more content not included)... Normal [facility] KETONES/ACETONE/BHBon 2022 Beta hydroxybutyrate [Moles/Vol] >6.00 High 0.02-0.27 [facility] Comment on above: Order Comment: Speci men Type: SWAB Ordering Facility: [facility] Address: [address] [place] [address] [place] [address] Result Comment: Rudolph ortiz ketone levels will vary depending on several factors (for example, food intake, alcohol intake and conditions such as ketoacidosis). Patients should be fasting 12 hours prior to collection. Patient samples with high levels of M-Protein (i.e. Gammopathy) may affect the accuracy of this assay. Performed By: #### 3 6902-5 #### [facility] CLIA [id number] [address] [place] [address] [place] Beta hydroxybutyrate [Moles/Vol] 5.70 mmol/L High 0.02-0.27 [facility] Comment on above: Order Comment: Jon russ Type: SWAB Ordering Facility: [facility] Address: [address] [place] [address] Result Comment: Bloo d ketone levels will vary depending on several factors (for example, food intake, alcohol intake and conditions such as ketoacidosis). Patients should be fasting 12 hours prior to collection. Patient samples with high levels of M-Protein (i.e. Gammopathy) may affect the accuracy of this assay. Performed By: #### 3 6902-5 #### [facility] CLIA [id number] [address] [place] [address] [place] Magnesium SerPl-mCncon 02-02 Magnesium [Mass/Vol] 2.3 mg/dL Normal 1.6-2.6 [facility] Comment on above: Order Comment: Jon russ Type: SWAB Ordering Facility: [facility] Address: [address] [place] [address] Performed By: #### 3 6902-5 #### [facility] CLIA [id number] [address] [place] [address] [place] Procalcitonin SerPl-mCncon 0 02-02-2023 Procalcitonin [Mass/Vol] 0.33 ng/mL Normal 0.00-0.50 [facility] Comment on above: Order Comment: Jon russ Type: BLOOD SPECIMEN Ordering Facility: [facility] Address: [address] [place] [address] Result Comment: PCT Concentration Interpretation PCT <=0.1 [...] shock. Performed By: #### 3 1201-7, 5195-3, 97107-9, SYPH #### [facility] CLIA [id number] [address] [place] [address] [place] Basic metabolic 2000 panelon 02-01-2023 Anion gap [Moles/Vol] 16 mmol/L Normal 5-16 [facility] Comment on above: Order Comment: Speci men Type: SWAB Ordering Facility: [facility] Address: [address] [place] [address] Performed By: #### 3 6902-5 #### [facility] CLIA [id number] [address] [place] [address] [place] Calcium [Mass/Vol] 8.4 mg/dL Low 8.5-10.5 [facility] Comment on above: Order Comment: Speci men Type: SWAB Ordering Facility: [facility] Address: [address] [place] [address] Performed By: #### 3 6902-5 #### [facility] CLIA [id number] [address] [place] [address] [place] Chloride [Moles/Vol] 108 mmol/L High 98-107 [facility] Comment on above: Order Comment: Speci men Type: SWAB Ordering Facility: [facility] Address: [address] [place] [address] Performed By: #### 3 6902-5 #### [facility] CLIA [id number] [address] [place] [address] [place] CO2 [Moles/Vol] 15 mmol/L Low 21-32 [facility] Comment on above: Order Comment: Speci men Type: SWAB Ordering Facility: [facility] Address: [address] [address] Performed By: #### 3 6902-5 #### [facility] CLIA [id number] [address] [place] [address] [place] Creatinine [Mass/Vol] 0.89 mg/dL Normal 0.51-0.95 [facility] Comment on above: Order Comment: Speci men Type: SWAB Ordering Facility: [facility] Address: [address] [place] [address] Result Comment: Cleopatra ents receiving either N-Acetylcysteine (NAC) or Metamizole prior to venipuncture, may have falsely depressed results. Performed By: #### 3 6902-5 #### [facility] CLIA [id number] [address] [place] [address] [place] ESTIMATED GLOMERULAR FILTRATION RATE 91 mL/min/1.73m??? Normal >=60 [facility] Comment on above: Order Comment: Speci men Type: SWAB Ordering Facility: [facility] Address: [address] [address] Result Comment: Janett mated Glomerular Filtration Rate [...] Performed By: #### 3 6902-5 #### [facility] CLIA [id number] [address] [place] [address] [place] Glucose [Mass/Vol] 351 mg/dL High 70-100 [facility] Comment on above: Order Comment: Belindai men Type: SWAB Ordering Facility: [facility] Address: [address] [place] [address] Result Comment: The [employer] Diabetes Association (ADA) provides guidance for cutoff [...] Standards of Medical Care in Diabetes 2016, [employer] Diabetes Association. Diabetes Care. 2016.39(Suppl 1). Results may be falsely elevated after the administration of Sulfapyridine. Results may be falsely depressed after the administration of Sulfasalazine. Performed By: #### 3 6902-5 #### [facility] CLIA [id number] [address] [place] [address] [place] Potassium [Moles/Vol] 4.0 mmol/L Normal 3.5-5.1 [facility] Comment on above: Order Comment: Speci men Type: SWAB Ordering Facility: [facility] Address: [address] [place] [address] Performed By: #### 3 6902-5 #### [facility] CLIA [id number] [address] [place] [address] [place] Sodium [Moles/Vol] 139 mmol/L Normal 136-145 [facility] Comment on above: Order Comment: Speci men Type: SWAB Ordering Facility: [facility] Address: [address] [place] [address] Performed By: #### 3 6902-5 #### [facility] CLIA [id number] [address] [place] [address] [place] Urea nitrogen [Mass/Vol] 19 mg/dL Normal 7-26 [facility] Comment on above: Order Comment: Speci men Type: SWAB Ordering Facility: [facility] Address: [address] [place] [address] Performed By: #### 3 6902-5 #### [facility] CLIA [id number] [address] [place] [address] [place] CBC panel Auto (Bld)on 02-01 Erythrocyte distribution width (RBC) [Ratio] 13.3 % Normal 11.5-15.0 [facility] Comment on above: Order Comment: Speci men Type: BLOOD SPECIMENOrdering Facility: [facility] Address: [address] [place] [address] Performed By: #### L [id number] #### [facility] CLIA [id number] [address] [place], [place] [address] [place] Hematocrit (Bld) [Volume fraction] 38.4 % Normal 36.0-46.0 [facility] Comment on above: Order Comment: Speci men Type: BLOOD SPECIMENOrdering Facility: [facility] Address: [address] [address] Performed By: #### L [id number] #### [facility] CLIA [id number] [address] [place] [address] [place] Hemoglobin (Bld) [Mass/Vol] 12.6 g/dL Normal 11.5-15.5 [facility] Comment on above: Order Comment: Speci men Type: BLOOD SPECIMENOrdering Facility: [facility] Address: [address] Performed By: #### L [id number] #### [facility] CLIA [id number] [address] [place] [address] [place] MCH (RBC) [Entitic mass] 29.2 pg Normal 26.0-34.0 [facility] Comment on above: Order Comment: Speci men Type: BLOOD SPECIMENOrdering Facility: [facility] Address: [address] Performed By: #### L [id number] #### [facility] CLIA [id number] [address] [place] [address] [place] MCHC (RBC) [Mass/Vol] 32.8 g/dL Normal 30.5-36.0 [facility] Comment on above: Order Comment: Speci men Type: BLOOD SPECIMENOrdering Facility: [facility] Address: [address] Performed By: #### L [id number] #### [facility] CLIA [id number] [address] [place] [address] [place] MCV (RBC) [Entitic vol] 88.9 fL Normal 80.0-100.0 [facility] Comment on above: Order Comment: Speci men Type: BLOOD SPECIMENOrdering Facility: [facility] Address: [address] Performed By: #### L [id number] #### [facility] CLIA [id number] [address] [place] [address] [place] Nucleated RBC (Bld) [#/Vol] 10*3/uL Normal <0.01 [facility] Comment on above: Order Comment: Speci men Type: BLOOD SPECIMENOrdering Facility: [facility] Address: [address] [place] [address] Performed By: #### L [id number] #### [facility] CLIA [id number] [address] [place] [address] [place] Platelet mean volume (Bld) [Entitic vol] 13.5 fL High 9.0-12.7 [facility] Comment on above: Order Comment: Speci men Type: BLOOD SPECIMENOrdering Facility: [facility] Address: [address] [place] [address] Performed By: #### L [id number] #### [facility] CLIA [id number] [address] [place] [address] [place] Platelets (Bld) [#/Vol] 139 10*3/uL Low 150-400 [facility] Comment on above: Order Comment: Speci men Type: BLOOD SPECIMENOrdering Facility: [facility] Address: [address] [place] [address] Result Comment: No c lot detected. Performed By: #### L [id number] #### [facility] CLIA [id number] [address] [place] [address] [place] RBC (Bld) [#/Vol] 4.32 10*6/uL Normal 3.90-5.20 [facility] Comment on above: Order Comment: Speci men Type: BLOOD SPECIMENOrdering Facility: [facility] Address: [address] [place] [address] Performed By: #### L [id number] #### [facility] CLIA [id number] [address] [place] [address] [place] WBC (Bld) [#/Vol] 16.97 10*3/uL High 3.70-11.00 [facility] Comment on above: Order Comment: Speci men Type: BLOOD SPECIMENOrdering Facility: [facility] Address: [place] [address] Performed By: #### L [id number] #### [facility] CLIA [id number] [address] [place] [address] [place] CNPNon 02-01-2023 CNPN Telephone (FAMPOR) KATHLEEN VILLA ([id number]) 1995 F CHT Date Time Provider Department [...] (BAQSIMI) 3 mg/actuation nasal spray Use 1 [place] in the nose as needed for low [...] irregularity [N92.6] (more content not included)... Normal [facility] Comprehensive metabolic 2000 panelon 02-01-2023 Albumin [Mass/Vol] 3.8 g/dL Normal 3.2-5.0 [facility] Comment on above: Order Comment: Jon russ Type: BLOOD SPECIMENOrdering Facility: [facility] Address: [address] [place] [address] Performed By: #### L [id number] #### [facility] CLIA [id number] [address] [place] [address] [place] ALP [Catalytic activity/Vol] 84 U/L Normal 45-117 [facility] Comment on above: Order Comment: Jon russ Type: BLOOD SPECIMENOrdering Facility: [facility] Address: [address] [place] [address] Performed By: #### L [id number] #### [facility] CLIA [id number] [address] [place] [address] [place] ALT [Catalytic activity/Vol] 19 U/L Normal 13-61 [facility] Comment on above: Order Comment: Jon russ Type: BLOOD SPECIMENOrdering Facility: [facility] Address: [address] [place] [address] Result Comment: Resu lts may be falsely depressed after the administration of Sulfasalazine and/or Sulfapyridine. Performed By: #### L [id number] #### [facility] CLIA [id number] [address] [place] [address] [place] Anion gap [Moles/Vol] 16 mmol/L Normal 5-16 [facility] Comment on above: Order Comment: Speci men Type: BLOOD SPECIMENOrdering Facility: [facility] Address: [address] [address] Performed By: #### L [id number] #### [facility] CLIA [id number] [address] [place] [address] [place] AST [Catalytic activity/Vol] 15 U/L Normal 8-34 [facility] Comment on above: Order Comment: Speci men Type: BLOOD SPECIMENOrdering Facility: [facility] Address: [address] [address] Result Comment: Resu lts may be falsely depressed after the administration of Sulfasalazine and/or Sulfapyridine. Performed By: #### L [id number] #### [facility] CLIA [id number] [address] [place] [address] [place] Bilirubin [Mass/Vol] 0.7 mg/dL Normal 0.2-1.0 [facility] Comment on above: Order Comment: Speci men Type: BLOOD SPECIMENOrdering Facility: [facility] Address: [address] [address] Performed By: #### L [id number] #### [facility] CLIA [id number] [address] [place] [address] [place] Calcium [Mass/Vol] 8.7 mg/dL Normal 8.5-10.5 [facility] Comment on above: Order Comment: Speci men Type: BLOOD SPECIMENOrdering Facility: [facility] Address: [address] [address] Performed By: #### L [id number] #### [facility] CLIA [id number] [address] [place] [address] [place] Chloride [Moles/Vol] 110 mmol/L High 98-107 [facility] Comment on above: Order Comment: Speci men Type: BLOOD SPECIMENOrdering Facility: [facility] Address: [address] [address] Performed By: #### L [id number] #### [facility] CLIA [id number] [address] [place] [address] [place] CO2 [Moles/Vol] 15 mmol/L Low 21-32 [facility] Comment on above: Order Comment: Speci men Type: BLOOD SPECIMENOrdering Facility: [facility] Address: [address] [place] [address] Performed By: #### L [id number] #### [facility] CLIA [id number] [address] [place] [address] [place] Creatinine [Mass/Vol] 0.66 mg/dL Normal 0.51-0.95 [facility] Comment on above: Order Comment: Speci men Type: BLOOD SPECIMENOrdering Facility: [facility] Address: [address] [place] [address] Result Comment: Cleopatra ents receiving either N-Acetylcysteine (NAC) or Metamizole prior to venipuncture, may have falsely depressed results. Performed By: #### L [id number] #### [facility] CLIA [id number] [address] [place] [address] [place] ESTIMATED GLOMERULAR FILTRATION RATE 123 mL/min/1.73m??? Normal >=60 [facility] Comment on above: Order Comment: Speci men Type: BLOOD SPECIMENOrdering Facility: [facility] Address: [address] [place] [address] Result Comment: Janett mated Glomerular Filtration Rate [...] reflect actual GFR. Performed By: #### L [id number] #### [facility] CLIA [id number] [address] [place] [address] [place] Glucose [Mass/Vol] 311 mg/dL High 70-100 [facility] Comment on above: Order Comment: Speci men Type: BLOOD SPECIMENOrdering Facility: [facility] Address: [address] [place] [address] Result Comment: The Indian Diabetes Association (ADA) provides guidance for cutoff [...] Standards of Medical Care in Diabetes 2016, [employer] Diabetes Association. Diabetes Care. 2016.39(Suppl 1). Results may be falsely elevated after the administration of Sulfapyridine. Results may be falsely depressed after the administration of Sulfasalazine. Performed By: #### L [id number] #### [facility] CLIA [id number] [address] [place] [address] [place] Potassium [Moles/Vol] 4.4 mmol/L Normal 3.5-5.1 [facility] Comment on above: Order Comment: Speci men Type: BLOOD SPECIMENOrdering Facility: [facility] Address: [address] [place] [address] Performed By: #### L [id number] #### [facility] CLIA [id number] [address] [place] [address] [place] Protein [Mass/Vol] 6.5 g/dL Normal 6.0-8.5 [facility] Comment on above: Order Comment: Speci men Type: BLOOD SPECIMENOrdering Facility: [facility] Address: [address] [place] [address] Performed By: #### L [id number] #### [facility] CLIA [id number] [address] [place] [address] [place] Sodium [Moles/Vol] 141 mmol/L Normal 136-145 [facility] Comment on above: Order Comment: Speci men Type: BLOOD SPECIMENOrdering Facility: [facility] Address: [place] [address] Performed By: #### L [id number] #### [facility] CLIA [id number] [address] [place], [place] [id number] [facility] Urea nitrogen [Mass/Vol] 15 mg/dL Normal 7-26 [facility] Comment on above: Order Comment: Speci men Type: BLOOD SPECIMENOrdering Facility: [facility] Address: [address] [place] [address] Performed By: #### L [id number] #### [facility] CLIA [id number] [address] [place], [place] [address] [facility] ED PROV NOTEon 02-01-2023 ED PROV NOTE HNO ID: [id number] Author: Adryan Alexis PA-C Service: ? Author Type: Physician Wastewater Analyst Type: ED Provider Notes Filed: 01/31/2023 11:39 [...] SEPSIS LACT (more content not included)... Normal [facility] HISTORY PHYSICALon HISTORY PHYSICAL HNO ID: [id number] Author: Camilo Centeno DO Service: Hospital Medicine Author Type: Physician Type: HANDP Filed: 02/01/2023 8:08 AM Note Text: HISTORY AND PHYSICAL SERVICE DATE: 01/31/2023 SERVICE TIME: 11:46 PM PRIMARY CARE PHYSICIAN: Vivi Smith MD Subjective CHIEF COMPLAINT: Abdominal pain, nausea, and vomiting HPI: Patient is a 27-year-old female who presented to the [facility] emergency department earlier this evening [...] (BAQSIMI) 3 mg/actuation nasal spray Use 1 Lafitte in the nose as needed for low [...] or rhonchi (more content not included)... Normal [facility] Magnesium SerPl-mCncon 02-01 Magnesium [Mass/Vol] 1.7 mg/dL Normal 1.6-2.6 [facility] Comment on above: Order Comment: Speci men Type: BLOOD SPECIMENOrdering Facility: [facility] Address: [address] [place], [place] [address] [address] Performed By: #### L [id number] #### [facility] CLIA [id number] [facility] [place] [address] [place] NURSING PROGon 02-01-2023 NURSING PROG HNO ID: [id number] Author: Avani Seo RN Service: Nursing Author [...] error. It must be returned to the substance abuse therapist. It is now disconnected and she will now take sliding scale insulin for coverage. Normal [facility] Urinalysis complete panel (U )on 02-01-2023 Bacteria LM.HPF (Urine sed) [#/Area] Rare Abnormal None Seen [facility] Comment on above: Order Comment: Speci men Type: URINE SPECIMENOrdering Facility: [facility] Address: [address] [place] [address] Performed By: #### L [id number] #### [facility] CLIA [id number] [facility] [place] [address] [place] Bilirubin Ql (U) Negative Normal Negative [facility] Comment on above: Order Comment: Speci men Type: URINE SPECIMENOrdering Facility: [facility] Address: [address] [place] [address] Performed By: #### L [id number] #### [facility] CLIA [id number] [address] [place] [address] [place] Clarity (Unsp spec) Clear Normal Clear [facility] Comment on above: Order Comment: Speci men Type: URINE SPECIMENOrdering Facility: [facility] Address: [address] [place] [address] Performed By: #### L [id number] #### [facility] CLIA [id number] [address] [place] [address] [place] Color (U) Yellow Normal Yellow [facility] Comment on above: Order Comment: Speci men Type: URINE SPECIMENOrdering Facility: [facility] Address: [address] [place] [address] Performed By: #### L [id number] #### [facility] CLIA [id number] [address] [place] [address] [place] Epithelial cells LM.HPF (Urine sed) [#/Area] Few Normal [facility] Comment on above: Order Comment: Speci men Type: URINE SPECIMENOrdering Facility: [facility] Address: [address] [place] [address] Performed By: #### L [id number] #### [facility] CLIA [id number] [address] [place] [address] [place] Glucose Test strip (U) [Mass/Vol] 3+ Abnormal Negative [facility] Comment on above: Order Comment: Speci men Type: URINE SPECIMENOrdering Facility: [facility] Address: [address] [place] [address] Performed By: #### L [id number] #### [facility] CLIA [id number] [address] [place] [address] [place] Hemoglobin Ql (U) 2+ Abnormal Negative [facility] Comment on above: Order Comment: Speci men Type: URINE SPECIMENOrdering Facility: [facility] Address: [address] [place] [address] Performed By: #### L [id number] #### [facility] CLIA [id number] [address] [place] [address] [place] Ketones Ql (U) 2+ Abnormal Negative [facility] Comment on above: Order Comment: Speci men Type: URINE SPECIMENOrdering Facility: [facility] Address: [address] [place] [address] Performed By: #### L [id number] #### [facility] CLIA [id number] [address] [place] [address] [place] Leukocyte esterase Test strip Ql (U) Negative Normal Negative [facility] Comment on above: Order Comment: Speci men Type: URINE SPECIMENOrdering Facility: [facility] Address: [address] [place] [address] Performed By: #### L [id number] #### [facility] CLIA [id number] [address] [place] [address] [place] Nitrite Ql (U) Negative Normal Negative [facility] Comment on above: Order Comment: Speci men Type: URINE SPECIMENOrdering Facility: [facility] Address: [address] [place] [address] Performed By: #### L [id number] #### [facility] CLIA [id number] [address] [place] [address] [place] pH (U) 7.0 [pH] Normal 5.0-8.0 [facility] Comment on above: Order Comment: Speci men Type: URINE SPECIMENOrdering Facility: [facility] Address: [address] [place] [address] Performed By: #### L [id number] #### [facility] CLIA [id number] [address] [place] [address] [place] Protein (U) [Mass/Vol] 1+ Abnormal Negative [facility] Comment on above: Order Comment: Speci men Type: URINE SPECIMENOrdering Facility: [facility] Address: [address] [place] [address] Performed By: #### L [id number] #### [facility] CLIA [id number] [address] [place] [address] STATES [facility] RBC LM.HPF (Urine sed) [#/Area] 3-5 /HPF Abnormal 0-3 /HPF [facility] Comment on above: Order Comment: Speci men Type: URINE SPECIMENOrdering Facility: [facility] Address: [address] [place] [address] Performed By: #### L [id number] #### [facility] CLIA [id number] [address] [place] [address] [place] Specific gravity (U) [Rel density] 1.021 Normal 1.005-1.030 [facility] Comment on above: Order Comment: Speci men Type: URINE SPECIMENOrdering Facility: [facility] Address: [address] [place] [address] Performed By: #### L [id number] #### [facility] CLIA [id number] [address] [place] [address] Urobilinogen Ql (U) Negative Normal Negative [facility] Comment on above: Order Comment: Speci men Type: URINE SPECIMENOrdering Facility: [facility] Address: [address] [place] [address] Performed By: #### L [id number] #### [facility] CLIA [id number] [address] [place] [address] [place] WBC LM.HPF (Urine sed) [#/Area] 0-5 /HPF Normal 0-5 /HPF [facility] Comment on above: Order Comment: Speci men Type: URINE SPECIMENOrdering Facility: [facility] Address: [address] [place] [address] Performed By: #### L [id number] #### [facility] CLIA [id number] [address] [place] [address] [place] Basic metabolic 2000 panelon 01-31-2023 Anion gap [Moles/Vol] 16 mmol/L Normal 5-16 [facility] Comment on above: Order Comment: Speci men Type: BLOOD SPECIMENOrdering Facility: [facility] Address: [address] [place] [address] Performed By: #### 2 4325-3, 25652-3, HCG ####[facility] [id number] [place] [address] [place] Calcium [Mass/Vol] 9.9 mg/dL Normal 8.5-10.5 [facility] Comment on above: Order Comment: Speci men Type: BLOOD SPECIMENOrdering Facility: [facility] Address: [address] [place] [address] Performed By: #### 2 4325-3, 32573-4, HCG ####[facility] [id number] [place] [address] [place] Chloride [Moles/Vol] 110 mmol/L High 98-107 [facility] Comment on above: Order Comment: Speci men Type: BLOOD SPECIMENOrdering Facility: [facility] Address: [address] [place] [address] Performed By: #### 2 4325-3, 15007-3, HCG ####[facility] [id number] [place] [address] [place] CO2 [Moles/Vol] 15 mmol/L Low 21-32 [facility] Comment on above: Order Comment: Speci men Type: BLOOD SPECIMENOrdering Facility: [facility] Address: [address] [place] [address] Performed By: #### 2 4325-3, 50954-9, HCG ####[facility] [id number] [place] [address] [place] Creatinine [Mass/Vol] 0.65 mg/dL Normal 0.51-0.95 [facility] Comment on above: Order Comment: Speci men Type: BLOOD SPECIMENOrdering Facility: [facility] Address: [address] [place] [address] Result Comment: Cleopatra ents receiving either N-Acetylcysteine (NAC) or Metamizole prior to venipuncture, may have falsely depressed results. Performed By: #### 2 4325-3, 34172-2, HCG ####[facility] [id number] [place] [id number] [place] ESTIMATED GLOMERULAR FILTRATION RATE 123 mL/min/1.73m??? Normal >=60 [facility] Comment on above: Order Comment: Jon russ Type: BLOOD SPECIMENOrdering Facility: [facility] Address: [address] [place] [address] Result Comment: Janett mated Glomerular Filtration Rate [...] actual GFR. Performed By: #### 2 4325-3, 35635-7, HCG ####[facility] [id number] [place] [address] [place] Glucose [Mass/Vol] 248 mg/dL High 70-100 [facility] Comment on above: Order Comment: Jon russ Type: BLOOD SPECIMENOrdering Facility: [facility] Address: [address] [place] [address] Result Comment: The [employer] Diabetes Association (ADA) provides guidance for cutoff [...] Standards of Medical Care in Diabetes 2016, [employer] Diabetes Association. Diabetes Care. 2016.39(Suppl 1). Results may be falsely elevated after the administration of Sulfapyridine. Results may be falsely depressed after the administration of Sulfasalazine. Performed By: #### 2 4325-3, 27155-2, HCG ####[facility] [id number] [place] [id number] [place] Potassium [Moles/Vol] 3.8 mmol/L Normal 3.5-5.1 [facility] Comment on above: Order Comment: Speci men Type: BLOOD SPECIMENOrdering Facility: [facility] Address: [address] [place] [address] Performed By: #### 2 4325-3, 34943-9, HCG ####[facility] [id number] [place] [address] [place] Sodium [Moles/Vol] 141 mmol/L Normal 136-145 [facility] Comment on above: Order Comment: Speci men Type: BLOOD SPECIMENOrdering Facility: [facility] Address: [address] [place] [address] Performed By: #### 2 4325-3, 24864-2, HCG ####[facility] [id number] [place] [address] [place] Urea nitrogen [Mass/Vol] 17 mg/dL Normal 7-26 [facility] Comment on above: Order Comment: Speci men Type: BLOOD SPECIMENOrdering Facility: [facility] Address: [address] [place] [address] Performed By: #### 2 4325-3, 46074-0, HCG ####[facility] [id number] [place] [address] [place] CBC W Auto Differential pane l (Bld)on 01-31-2023 Basophils (Bld) [#/Vol] 0.07 10*3/uL Normal <0.11 [facility] Comment on above: Order Comment: Speci men Type: BLOOD SPECIMENOrdering Facility: [facility] Address: [address] [place] [address] Performed By: #### 5 7021-8 ####[facility]ORY[facility] [id number] [place] [address] [place] Basophils/100 WBC (Bld) 0.5 % Normal [facility] Comment on above: Order Comment: Speci men Type: BLOOD SPECIMENOrdering Facility: [facility] Address: [address] [place] [address] Performed By: #### 5 7021-8 ####[facility]ORY[facility]IA [id number] [place] [address] [place] Differential cell count method Nom (Bld) Auto Normal [facility] Comment on above: Order Comment: Speci men Type: BLOOD SPECIMENOrdering Facility: [facility] Address: [address] [place] [address] Performed By: #### 5 7021-8 ####[facility]ORY[facility]IA [id number] [place] [address] [place] Eosinophils (Bld) [#/Vol] 10*3/uL Normal <0.46 [facility] Comment on above: Order Comment: Speci men Type: BLOOD SPECIMENOrdering Facility: [facility] Address: [address] [place] [address] Performed By: #### 5 7021-8 ####[facility]ORY[facility]IA [id number] [address] [place] Eosinophils/100 WBC (Bld) 0.1 % Normal [facility] Comment on above: Order Comment: Speci men Type: BLOOD SPECIMENOrdering Facility: [facility] Address: [address] [place] [address] Performed By: #### 5 7021-8 ####[facility]ORY[facility] [id number] [place] [address] [place] Erythrocyte distribution width (RBC) [Ratio] 12.9 % Normal 11.5-15.0 [facility] Comment on above: Order Comment: Speci men Type: BLOOD SPECIMENOrdering Facility: [facility] Address: [address] [place] [address] Performed By: #### 5 7021-8 ####[facility]ORYCLIA [id number] [place] [address] [place] Hematocrit (Bld) [Volume fraction] 43.2 % Normal 36.0-46.0 [facility] Comment on above: Order Comment: Speci men Type: BLOOD SPECIMENOrdering Facility: [facility] Address: [address] [place] [address] Performed By: #### 5 7021-8 ####[facility]ORY[facility] [id number] [place] [address] [place] Hemoglobin (Bld) [Mass/Vol] 14.8 g/dL Normal 11.5-15.5 [facility] Comment on above: Order Comment: Speci men Type: BLOOD SPECIMENOrdering Facility: [facility] Address: [address] [place] [address] Performed By: #### 5 7021-8 ####[facility]ORY[facility]IA [id number] [place] [address] [place] Immature granulocytes (Bld) [#/Vol] 0.12 10*3/uL High <0.10 [facility] Comment on above: Order Comment: Speci men Type: BLOOD SPECIMENOrdering Facility: [facility] Address: [address] [place] [address] Performed By: #### 5 7021-8 ####[facility]ORYCLIA [id number] [place] [address] [place] Immature granulocytes/100 WBC (Bld) 0.8 % Normal [facility] Comment on above: Order Comment: Speci men Type: BLOOD SPECIMENOrdering Facility: [facility] Address: [address] [place] [address] Performed By: #### 5 7021-8 ####[facility]ORYCLIA [id number] [place] [address] [place] Lymphocytes (Bld) [#/Vol] 2.36 10*3/uL Normal 1.00-4.00 [facility] Comment on above: Order Comment: Speci men Type: BLOOD SPECIMENOrdering Facility: [facility] Address: [address] [place] [address] Performed By: #### 5 7021-8 ####[facility]ORYCLIA [id number] [address] [place] Lymphocytes/100 WBC (Bld) 15.3 % Normal [facility] Comment on above: Order Comment: Speci men Type: BLOOD SPECIMENOrdering Facility: [facility] Address: [address] [place] [address] Performed By: #### 5 7021-8 ####[facility]ORYCLIA [id number] [address] [place] MCH (RBC) [Entitic mass] 29.1 pg Normal 26.0-34.0 [facility] Comment on above: Order Comment: Speci men Type: BLOOD SPECIMENOrdering Facility: [facility] Address: [address] [place] [address] Performed By: #### 5 7021-8 ####[facility]ORYCLIA [id number] [address] MCHC (RBC) [Mass/Vol] 34.3 g/dL Normal 30.5-36.0 [facility] Comment on above: Order Comment: Speci men Type: BLOOD SPECIMENOrdering Facility: [facility] Address: [address] [place] [address] Performed By: #### 5 7021-8 ####[facility]ORYCLIA [id number] [address] [place] MCV (RBC) [Entitic vol] 84.9 fL Normal 80.0-100.0 [facility] Comment on above: Order Comment: Speci men Type: BLOOD SPECIMENOrdering Facility: [facility] Address: [address] [place] [address] Performed By: #### 5 7021-8 ####[facility]ATORYCLIA [id number] [place] [address] [place] Monocytes (Bld) [#/Vol] 0.73 10*3/uL Normal <0.87 [facility] Comment on above: Order Comment: Speci men Type: BLOOD SPECIMENOrdering Facility: [facility] Address: [address] [place] [address] Performed By: #### 5 7021-8 ####[facility]ORYCLIA [id number] [place] [address] [place] Monocytes/100 WBC (Bld) 4.7 % Normal [facility] Comment on above: Order Comment: Speci men Type: BLOOD SPECIMENOrdering Facility: [facility] Address: [address] [place] [address] Performed By: #### 5 7021-8 ####[facility]ORYCLIA [id number] [place] [address] [place] Neutrophils (Bld) [#/Vol] 12.16 10*3/uL High 1.45-7.50 [facility] Comment on above: Order Comment: Speci men Type: BLOOD SPECIMENOrdering Facility: [facility] Address: [address] [place] [address] Performed By: #### 5 7021-8 ####[facility]ORYCLIA [id number] [place] [address] [place] Neutrophils/100 WBC (Bld) 78.6 % Normal [facility] Comment on above: Order Comment: Speci men Type: BLOOD SPECIMENOrdering Facility: [facility] Address: [address] Performed By: #### 5 7021-8 ####[facility]ATORYCLIA [id number] [place] [address] [place] Nucleated RBC (Bld) [#/Vol] 10*3/uL Normal <0.01 [facility] Comment on above: Order Comment: Speci men Type: BLOOD SPECIMENOrdering Facility: [facility] Address: [address] [place] [address] Performed By: #### 5 7021-8 ####[facility]ATORYCLIA [id number] [place] [id number] [place] Nucleated RBC/100 WBC (Bld) [Ratio] 0.0 /100 WBC Normal [facility] Comment on above: Order Comment: Speci men Type: BLOOD SPECIMENOrdering Facility: [facility] Address: [address] [place] [address] Performed By: #### 5 7021-8 ####[facility]ATORYCLIA [id number] [place] [address] [place] Platelet mean volume (Bld) [Entitic vol] 13.0 fL High 9.0-12.7 [facility] Comment on above: Order Comment: Speci men Type: BLOOD SPECIMENOrdering Facility: [facility] Address: [address] [place] [address] Performed By: #### 5 7021-8 ####[facility]ATORYCLIA [id number] [address] [place] Platelets (Bld) [#/Vol] 180 10*3/uL Normal 150-400 [facility] Comment on above: Order Comment: Speci men Type: BLOOD SPECIMENOrdering Facility: [facility] Address: [address] [place] [address] Result Comment: No c lot detected. Performed By: #### 5 7021-8 ####[facility]ORYCLIA [id number] [place] [address] [place] RBC (Bld) [#/Vol] 5.09 10*6/uL Normal 3.90-5.20 [facility] Comment on above: Order Comment: Speci men Type: BLOOD SPECIMENOrdering Facility: [facility] Address: [address] [place] [address] Performed By: #### 5 7021-8 ####[facility]ATORYCLIA [id number] [place] [address] [place] WBC (Bld) [#/Vol] 15.46 10*3/uL High 3.70-11.00 [facility] Comment on above: Order Comment: Speci men Type: BLOOD SPECIMENOrdering Facility: [facility] Address: [place] [address] Performed By: #### 5 7021-8 ####[facility] LABORATORYCLIA [id number] [place] [address] [place] ECG COMPLETEon 01-31-2023 ECG COMPLETE Ventricular Rate : 8 0 BPM Atrial Rate : 80 BPM P-R Interval : 144 ms QRS Duration : 84 ms Q-T Interval : 402 ms QTC Calculation(Bazett) : 463 ms Calculated P Livingston : 26 degrees Calculated R [place] : 78 degrees Calculated T Livingston : 72 degrees Normal sinus rhythm Nonspecific T wave abnormality Abnormal ECG When compared with ECG of 23-NOV-2022 18:14, Nonspecific T wave abnormality now evident in Lateral leads QT has lengthened Confirmed by ANASTASIA CHENG MD ([id number]) on 01/31/2023 11:03:12 PM NAME : KATHLEEN VILLA PID : [id number] : 1995 Gender : Female Race : ORD : [id number] Procedure Date : Jan 31 2023 19:42:30 Edit Date : Jan 31 2023 23:03:15 Diagnosis: Normal sinus rhythm Nonspecific T wave abnormality Abnormal ECG When compared with ECG of 23-NOV-2022 18:14, Nonspecific T wave abnormality now evident in Lateral leads QT has lengthened Confirmed by ANASTASIA CHENG MD ([id number]) on 01/31/2023 11:03:12 PM Test Reason : STAT Location : 0 : ED 9 Overread By : ANASTASIA CHENG MD Edited By : ANASTASIA CHENG MD Referred By : , Acquired by : [facility], [facility] ED NOTEon 01-31-2023 ED NOTE HNO ID: [id number] Author: Clementina Alarcon RN Service: Nursing Author Type: Registered Nurse Type: ED Notes Filed: 01/31/2023 9:06 PM Note Text: Report to oncoming nurse. [facility] ED NOTE HNO ID: [id number] Author: Blaise Flower RN Service: ? Author Type: Registered Nurse Type: ED Notes Filed: 01/31/2023 7:21 PM Note Text: Bed: 09-ED Expected date: 01/31/23 Expected time: Means of arrival: Comments: [facility] ED Triage Noteon 01-31-2023 ED Triage Note HNO ID: [id number] Author: Huy Horton PA-C Service: ? Author Type: Physician Wastewater Analyst Type: ED Triage Notes Filed: 01/31/2023 7:06 [...] obtained and pending. SIGNATURE: Huy Horton PA-C [facility] Gas and Carbon monoxide pane l (BldV)on 01-31-2023 BASE DEFICIT, VENOUS -2 mmol/L Normal -2-0 [facility] Comment on above: Order Comment: Speci men Type: VENOUS BLOOD SPECIMENOrdering Facility: [facility] Address: [address] [place] [address] Performed By: #### 2 4344-4 ####[facility]IR[facility] THERAPYCLIA [id number] [place] [address] [place] Body temperature 98.6 [degF] Normal [facility] Comment on above: Order Comment: Speci men Type: VENOUS BLOOD SPECIMENOrdering Facility: [facility] Address: [address] [address] Performed By: #### 2 4344-4 ####[facility] RES[facility]IR[facility] THERAPYCLIA [id number] [place] [address] [place] Calcium.ionized (Bld) [Mass/Vol] 1.11 mmol/L Normal 1.08-1.30 [facility] Comment on above: Order Comment: Speci men Type: VENOUS BLOOD SPECIMENOrdering Facility: [facility] Address: [address] [address] Performed By: #### 2 4344-4 ####[facility] RESPIRATORY THERAPYCLIA [id number] [place] [address] [place] Carboxyhemoglobin (BldV) [Mass fraction] 0.8 % Normal 0.0-2.0 [facility] Comment on above: Order Comment: Speci men Type: VENOUS BLOOD SPECIMENOrdering Facility: [facility] Address: [address] [place] [address] Result Comment: Carb oxyhemoglobin Reference Range for Smokers: 2.0-8.0% Performed By: #### 2 4344-4 ####[facility] RESPIRATORY THERAPYCLIA [id number] [place] [address] [place] CO2 (BldV) [Partial pressure] 22 mm[Hg] Low 42-55 [facility] Comment on above: Order Comment: Speci men Type: VENOUS BLOOD SPECIMENOrdering Facility: [facility] Address: [address] [place] [address] Performed By: #### 2 4344-4 ####[facility] RES[facility]IR[facility] THERAPYCLIA [id number] [place] [address] [place] Glucose [Mass/Vol] 303 mg/dL High 60-105 [facility] Comment on above: Order Comment: Speci men Type: VENOUS BLOOD SPECIMENOrdering Facility: [facility] Address: [address] [place] [address] Performed By: #### 2 4344-4 ####[facility] RES[facility]IRATORY THERAPYCLIA [id number] [place] [address] [place] HCO3 (Bld) [Moles/Vol] 18 mmol/L Low 24-28 [facility] Comment on above: Order Comment: Speci men Type: VENOUS BLOOD SPECIMENOrdering Facility: [facility] Address: [address] [place] [address] Performed By: #### 2 4344-4 ####[facility] RES[facility]IRATORY THERAPYCLIA [id number] [place] [address] [place] Hemoglobin (Bld) [Mass/Vol] 15.2 g/dL Normal 11.5-15.5 [facility] Comment on above: Order Comment: Speci men Type: VENOUS BLOOD SPECIMENOrdering Facility: [facility] Address: [address] [address] Performed By: #### 2 4344-4 ####[facility] THERAPYCLIA [id number] [address] [place] Lactate [Moles/Vol] 2.1 mmol/L Normal 0.5-2.2 [facility] Comment on above: Order Comment: Speci men Type: VENOUS BLOOD SPECIMENOrdering Facility: [facility] Address: [address] [address] Performed By: #### 2 4344-4 ####[facility] RESPIRATORY THERAPYCLIA [id number] [address] Methemoglobin (Bld) [Mass fraction] 0.3 % Normal 0.0-1.5 [facility] Comment on above: Order Comment: Speci men Type: VENOUS BLOOD SPECIMENOrdering Facility: [facility] Address: [address] [address] Performed By: #### 2 4344-4 ####[facility] RES[facility]IR[facility] THERAPYCLIA [id number] [address] O2 THERAPY RA=Room Air Normal [facility] Comment on above: Order Comment: Speci men Type: VENOUS BLOOD SPECIMENOrdering Facility: [facility] Address: [address] [address] Performed By: #### 2 4344-4 ####[facility] RESPIRAT[facility] THERAPYCLIA [id number] [address] [place] Oxygen (BldV) [Partial pressure] 28 mm[Hg] Low 35-45 [facility] Comment on above: Order Comment: Speci men Type: VENOUS BLOOD SPECIMENOrdering Facility: [facility] Address: [address] [address] Performed By: #### 2 4344-4 ####[facility] RESPIRATORY THERAPYCLIA [id number] [address] [place] Oxyhemoglobin (BldV) [Mass fraction] 63 % Normal 4-98 [facility] Comment on above: Order Comment: Speci men Type: VENOUS BLOOD SPECIMENOrdering Facility: [facility] Address: [address] [address] Performed By: #### 2 4344-4 ####[facility] RESPIRATORY THERAPYCLIA [id number] [place] [address] [place] pH (BldV) 7.53 [pH] High 7.32-7.42 [facility] Comment on above: Order Comment: Speci men Type: VENOUS BLOOD SPECIMENOrdering Facility: [facility] Address: [address] [address] Performed By: #### 2 4344-4 ####[facility] RESPIRAT[facility] THERAPYCLIA [id number] [address] [place] Potassium [Moles/Vol] 3.9 mmol/L Normal 2.5-6.0 [facility] Comment on above: Order Comment: Speci men Type: VENOUS BLOOD SPECIMENOrdering Facility: [facility] Address: [address] [address] Performed By: #### 2 4344-4 ####[facility] RESPIRAT[facility] THERAPYCLIA [id number] [address] [place] Sodium [Moles/Vol] 138 mmol/L Normal 136-144 [facility] Comment on above: Order Comment: Speci men Type: VENOUS BLOOD SPECIMENOrdering Facility: [facility] Address: [address] [address] Performed By: #### 2 4344-4 ####[facility] RESPIRAT[facility] THERAPYCLIA [id number] [address] [place] HCG QUAL BLDon 01-31-2023 HCG, QUALITATIVE Negative Normal Negative [facility] Comment on above: Order Comment: Speci men Type: BLOOD SPECIMENOrdering Facility: [facility] Address: [address] [address] Performed By: #### 2 4325-3, 86204-4, HCG ####[facility] LABORATORYCLIA [id number] [place] [address] [place] HIGH SENSITIVITY TROPONIN Io n 01-31-2023 Tropinin I.cardiac panel High sensitivity method <2.5 Normal 0.0-34.0 [facility] Comment on above: Order Comment: Speci men Type: BLOOD SPECIMENOrdering Facility: [facility] Address: [address] [place] [address] Result Comment: This assay uses different antibodies than our current assay, and assays, even by the same substance abuse therapist may recognize different regions of the antibody and cannot be used interchangeably. Expect results of this assay to run higher than the previous assay. Performed By: #### H STROP ####[facility] LABORATORYCLIA [id number] [address] [place] Hepatic function 2000 panelo n 01-31-2023 Albumin [Mass/Vol] 4.3 g/dL Normal 3.2-5.0 [facility] Comment on above: Order Comment: Speci men Type: BLOOD SPECIMENOrdering Facility: [facility] Address: [address] [place] [address] Performed By: #### 2 4325-3, 53048-2, HCG ####[facility]ITAL[facility] [id number] [place] [address] [place] ALP [Catalytic activity/Vol] 93 U/L Normal 45-117 [facility] Comment on above: Order Comment: Speci men Type: BLOOD SPECIMENOrdering Facility: [facility] Address: [address] [place] [address] Performed By: #### 2 4325-3, 42285-0, HCG ####[facility] LABORATORYCLIA [id number] [place] [address] [place] ALT [Catalytic activity/Vol] 21 U/L Normal 13-61 [facility] Comment on above: Order Comment: Speci men Type: BLOOD SPECIMENOrdering Facility: [facility] Address: [address] [place] [address] Result Comment: Resu lts may be falsely depressed after the administration of Sulfasalazine and/or Sulfapyridine. Performed By: #### 2 4325-3, 10303-9, HCG ####[facility] LABORATORYCLIA [id number] [address] [place] AST [Catalytic activity/Vol] 19 U/L Normal 8-34 [facility] Comment on above: Order Comment: Speci men Type: BLOOD SPECIMENOrdering Facility: [facility] Address: [address] [place] [address] Result Comment: Resu lts may be falsely depressed after the administration of Sulfasalazine and/or Sulfapyridine. Performed By: #### 2 4325-3, 84541-8, HCG ####[facility] LABORATORYCLIA [id number] [address] [place] Bilirubin [Mass/Vol] 0.8 mg/dL Normal 0.2-1.0 [facility] Comment on above: Order Comment: Speci men Type: BLOOD SPECIMENOrdering Facility: [facility] Address: [address] [place] [address] Performed By: #### 2 4325-3, 92035-9, HCG ####[facility] LABORATORYCLIA [id number] [address] [place] Bilirubin.conjugated [Mass/Vol] 0.2 mg/dL Normal 0.0-0.4 [facility] Comment on above: Order Comment: Speci men Type: BLOOD SPECIMENOrdering Facility: [facility] Address: [address] [place] [address] Performed By: #### 2 4325-3, 98239-8, HCG ####[facility] LABORATORYCLIA [id number] [place] [address] [place] Protein [Mass/Vol] 7.3 g/dL Normal 6.0-8.5 [facility] Comment on above: Order Comment: Speci men Type: BLOOD SPECIMENOrdering Facility: [facility] Address: [address] [address] Performed By: #### 2 4325-3, 22910-2, HCG ####[facility] LABORATORYCLIA [id number] [address] [place] Lipase SerPl-cCncon 02-01-20 23 Lipase [Catalytic activity/Vol] 21 U/L Normal 12-60 [facility] Comment on above: Order Comment: Speci men Type: BLOOD SPECIMENOrdering Facility: [facility] Address: [address] [place] [address] Performed By: #### 3 040-3 ####[facility] LABORATORYCLIA [id number] [address] SEPSIS LACTATEon 01-31-2023 Lactate [Moles/Vol] 3.0 mmol/L High 0.4-2.0 [facility] Comment on above: Order Comment: Speci men Type: BLOOD SPECIMENOrdering Facility: [facility] Address: [address] [place] [address] Performed By: #### S LACT ####[facility] LABORATORYCLIA [id number] [address] XR ACUTE ABD SERIES 2V ABD+C [...] bowel. Consider CT if concern remains high. Steward/Stewardess Economy Class: PSCB Transcribe Date/Time: Jan 31 2023 7:56P Dictated by : SARAVANAN REESE MD This examination was interpreted and the report reviewed and electronically signed by: SARAVANAN REESE MD on Jan 31 2023 8:00PM EST [id number] Normal [facility] Bacteria Ur Culton 3 Bacteria identified Cx Nom (U) CULTURE, URINE: <10,000 CFU/ml Normal Urogenital Dorothy Normal [facility] Comment on above: Performed By: #### 6 30-4 ####[facility] LABORATORYCLIA [id number] [address] OF [facility] CNNURSEon 01-25-2023 CNNURSE Nurse Visit (FAMPOR) KATHLEEN VILLA ([id number]) 1995 F CHT Date Time Provider Department [...] Other Visit Diagnosis:Dysuria [R30.0] Order(s):UA DIP B/O [[id number]] Order #: [id number] Prescriptions as of 01/25/2023 - prochlorperazine (COMPAZINE) [...] (BAQSIMI) 3 mg/actuation nasal spray Use 1 Lafitte in the nose as needed for low [...] 11/22/2013 04/16/2014 Diabetes mellitus in ([facility]) [O24.919] 12/25/2013 04/16/2014 DKA (diabetic ketoacidoses) [E11.10] 01/08/2014 Aortic root aneurysm ([facility]) [I71.21] 01/08/2014 DVT prophylaxis [Z79.899] 02/25/2014 04/16/2014 [...] 12/08/2022 Encoun (more content not included)... Normal [facility] HEMOGLOBIN A1C (POC)on 01-25 HbA1c (Bld) [Mass fraction] 7.6 % Abnormal 4.2 - 5.6 % [facility] Laboratory - Chemistry and C hemistry - challengeon 01-25-2023 Glucose Ql (U) Negative Neg mg/dL [facility] Ketones Ql (U) Negative Neg [facility] pH (U) 6.5 [pH] 4.5 - 8.0 [facility] Protein.monoclonal (U) [Mass/Vol] Negative Neg mg/dL [facility] Laboratory - Urinalysison Nitrite Ql (U) Negative Neg [facility] No Panel Informationon 01-25 Bilirubin, Urine Negative Neg [facility] Color/Appearance Yellow/clear [facility] Hemoglobin/Blood,Ur Negative Neg [facility] Leukocytes Negative Neg [facility] Specific [place], Ur 1.020 1.005 - 1.030 [facility] Urobilinogen, Urine 0.2 EU Normal ( <1.1) EU [facility] CNPNon 01-24-2023 CNPN Telephone (FAMPOR) KATHLEEN VILLA ([id number]) 1995 F CHT Date Time Provider Department 01/24/23 VIVI SMITH During your visit today, we recorded the following information about you: Radha Mandel MA 01/24/2023 11:44 AM Signed Yaima from [facility] called and they need an order for [...] (BAQSIMI) 3 mg/actuation nasal spray Use 1 Lafitte in the nose as needed for low [...] VIVI SMITH on (more content not included)... [facility]ATH[facility]EN VILLA ([id number]) 1995 F CHT Date Time Provider Department [...] Diagnosis:Left flank pain [R10.9] Order(s):UA DIP B/O [[id number]] Order #: [id number] FUTURE URINE CULTURE [SQURCUL] Order #: [id number] Prescriptions as of 01/25/2023 - prochlorperazine (COMPAZINE) [...] (BAQSIMI) 3 mg/actuation nasal spray Use 1 Lafitte in the nose as needed for low [...] Medical Center CNPN Telephone ([facility]) KATHLEEN VILLA ([id number]) 1995 F CHT Date Time Provider Department [...] (BAQSIMI) 3 mg/actuation nasal spray Use 1 Lafitte in the nose as needed for low [...] Encounter Status:Closed by YAIMA AGUILAR on 01/26/23 [facility] Bacteria Ur Culton 3 Bacteria identified Cx Nom (U) CULTURE, URINE: 10,000-<50,000 CFU/mL Three or more organisms, no one type predominant, suggesting contamination during collection. Recollect if clinically indicated. [facility] Comment on above: Performed By: #### 6 30-4 ####[facility] LABORATORYCLIA [id number] [place] [id number] [place] CNOVon 01-20-2023 CNOV Office Visit (FAMPOR ) KATHLEEN VILLA ([id number]) 1995 F T Date Time Provider Department [...] 200s/. She sees Endo next week. Seeing [employer]ACH[employer] and had recent negative pap smear and [...] (BAQSIMI) 3 mg/actuation nasal spray Use 1 Lafitte in the nose as needed for low [...] Ear: Ty (more content not included)... Normal [facility] C. trachomatis+N. gonorrhoea e DNA DANIEL+probe Ql (Unsp spec)on 01-12-2023 C. trachomatis DNA DANIEL+probe Ql (Unsp spec) Negative Normal Negative for Chlamydia trachomatis by amplificaton [facility] Comment on above: Order Comment: Speci men Type: SWAB [facility] Address: [address] [place] [address] Performed By: #### 3 6902-5 #### [facility] CLIA [id number] [address] [place] [address] [place] N. gonorrhoeae DNA DANIEL+probe Ql (Unsp spec) Negative Normal Negative for Neisseria gonorrhoeae by amplification [facility] Comment on above: Order Comment: Speci men Type: SWAB [facility] Address: [address] [place] [address] Performed By: #### 3 6902-5 #### [facility] CLIA [id number] [address] [place] [address] [place] [address] [facility] CNOVon 01-12-2023 CNOV Office Visit (OBGYMM ) KATHLEEN VILLA ([id number]) 1995 F CHT Date Time Provider Department [...] fevers GI: No nausea, vomiting, or diarrhea DERRICK WORKER: Negative for abnormal vaginal bleeding, abnormal vaginal [...] [SQGCCAMP] Order (more content not included)... Normal [facility] HBV surface Ag Ser Qlon 12-26 HBV surface Ag Ql (S) Non-Reactive Normal Equivo cristina, Nonreactive [facility] Comment on above: Order Comment: Speci men Type: BLOOD SPECIMEN [facility] Address: [address] [place] [address] Result Comment: Resu lts were obtained with the AtellT3 MOTION IM IgM assay. Values obtained with different manufactures' assay methods may not be used interchangeably. Performed By: #### 3 1201-7, 5195-3, 26508-3, SYPH #### [facility] CLIA [id number] [address] [place] [address] [place] HCV Ab Ser Qlon 01-12-2023 HCV Ab Ql (S) Non-Reactive Normal [facility] Comment on above: Order Comment: Speci men Type: BLOOD SPECIMEN [facility] Address: [address] [place] [address] Result Comment: Scre ening test negative Nonreactive HCV Antibody Screen is consistent with no HCV infection, unless recent infection is suspected or other evidence exists to indicate HCV infection. Results were obtained with the Atellica IM IgM assay. Values obtained with different manufactures' assay methods may not be used interchangeably. Performed By: #### 3 1201-7, 5195-3, 18780-1, SYPH #### [facility] CLIA [id number] [address] [place] [address] [place] HIV 1+2 Ab IA Qlon 3 HIV 1+2 Ab+HIV1 p24 Ag IA Ql Non-Reactive Normal Nonreactive [facility] Comment on above: Order Comment: Speci men Type: BLOOD SPECIMEN [facility] Address: [address] [place] [address] Result Comment: Nonr eactive: Less than 1.0 index value Specimens with an index value <1.0 are considered nonreactive for antibodies to HIV-1, HIV-2, and p24 antigen by the Atellica IM CHIV assay. Performed By: #### 3 1201-7, 5195-3, 17115-1, SYPH #### [facility] CLIA [id number] [address] [place] [address] TREPONEMA PALLIDUM SCREENon 01-12-2023 T. pallidum IgG IF Ql (S) Non-Reactive Normal Nonreactive [facility] Comment on above: Order Comment: Speci men Type: BLOOD SPECIMEN [facility] Address: [address] [place] [address] Result Comment: Samp les with an index value of less than 0.90 are considered Nonreactive for Syphilis T. pallidum antibodies. Performed By: #### 3 1201-7, 5195-3, 17336-3, SYPH #### [facility] CLIA [id number] [address] [place] [address] [place] WET PREPon 01-12-2023 WET PREP WET PREP RESULT: No Trichomonads, No yeast observed Moderate Clue cells present Normal [facility] Comment on above: Performed By: #### L [id number] #### [facility] CLIA [id number] [address] [place] [address] [place] HEMOGLOBIN A1C (POC)on 08-16 HbA1c (Bld) [Mass fraction] 7.0 % Abnormal 4.2 - 5.6 % [facility] BMPon 02-01-2022 Anion gap [Moles/Vol] 7 mmol/L Normal 5-16 [facility] Comment on above: Order Comment: Campu s: M Performed By: #### L 500.16566, L500.64024, L500.87527 ####[facility] [id number] [place], [place] [address]Uo# [phone] BUN/CREA TNP Normal 15-24 [facility] Comment on above: Order Comment: Campu s: M Performed By: #### L 500.31844, L500.10416, L500.53126 ####[facility] [id number] [place], [place] [address]Sf# [phone] Calcium [Mass/Vol] 8.4 mg/dL Low 8.5-10.5 [facility] Comment on above: Order Comment: Campu s: M Result Comment: NOTE NEW NORMAL RANGE DUE TO REAGENT CHANGE Performed By: #### L 500.58782, L500.08039, L500.98631 ####[facility] [id number] [place], [place] [address]Nk# [phone] Chloride [Moles/Vol] 112 mmol/L High 98-107 [facility] Comment on above: Order Comment: Campu s: M Performed By: #### L 500.04773, L500.11100, L500.07000 ####[facility] [id number] [place], [place] [address]Wq# [phone] CO2 [Moles/Vol] 24.0 mmol/L Normal 21-32 [facility] Comment on above: Order Comment: Campu s: M Performed By: #### L 500.14337, L500.78574, L500.31719 ####[facility] [id number] [place], [place] [address]Gi# [phone] Creatinine [Mass/Vol] 0.64 mg/dL Normal 0.510-0.950 [facility] Comment on above: Order Comment: Zach s: M Result Comment: Cleopatra ents receiving either N-Acetylcysteine (NAC) orMetamizole prior to venipuncture, may have falsely depressedresults. Performed By: #### L 500.72236, L500.77368, L500.75493 ####[facility] [id number] [place], [place] [address]Hp# [phone] Glucose [Mass/Vol] 104 mg/dL High 70-100 [facility] Comment on above: Order Comment: Zach richter: Millicent Result Comment: 70-1 00- Normal Fasting; 100-125 Impaired Fasting; greaterthan 126 on more than one result- Diabetes. ADA guidelines.Results may be falsely elevated after the administration ofSulfapyridine.Results may be falsely depressed after the administration ofSulfasalazine. Performed By: #### L 500.94459, L500.73284, L500.94965 ####[facility] [facility] [id number] [place], [place] [address]Ty# [phone] Potassium [Moles/Vol] 3.7 mmol/L Normal 3.5-5.1 [facility] Comment on above: Order Comment: Zach s: M Result Comment: Slig ht Hemolysis, Result may be affected. Performed By: #### L 500.22147, L500.80150, L500.51309 ####[facility] [id number] [place], [place] [address]Xo# [phone] Sodium [Moles/Vol] 143 mmol/L Normal 136-145 [facility] Comment on above: Order Comment: Zach Ricks Performed By: #### L 500.09385, L500.75932, L500.83910 ####[facility] XDHGEPWBEC7125 [place], [place] [address]Ct# [phone] Urea nitrogen [Mass/Vol] 5 mg/dL Low 7-26 [facility] Comment on above: Order Comment: Campu s: M Performed By: #### L 500.06842, L500.21915, L500.28154 ####[facility] JGOCFBSBTO3700 [place], [place] [address]Tr# [phone] CBC W/DIFFon 02-01-2022 BASO ABS 0.10 K/CU MM Normal 0-0.2 [facility] Comment on above: Order Comment: Campu s: M Performed By: #### L 200.61769 ####[address] [address]Ko# [phone] Basophils/100 WBC (Bld) 0.6 % Normal 0-2 [facility] Comment on above: Order Comment: Campu s: M Performed By: #### L 200.16097 ####[place] [address]Ph# [phone] EOS ABS 0.10 K/CU MM Normal 0-0.5 [facility] Comment on above: Order Comment: Campu s: M Performed By: #### L 200.03887 ####[facility] [id number] [place], [place] [address]Ph# [phone] Eosinophils/100 WBC (Bld) 1.3 % Normal 0-5 [facility] Comment on above: Order Comment: Campu s: M Performed By: #### L 200.26870 ####[facility] [id number] [place] [address]Ow# [phone] Erythrocyte distribution width (RBC) [Ratio] 13.8 % Normal 11-14.5 [facility] Comment on above: Order Comment: Campu s: M Performed By: #### L 200.64010 ####[facility] [id number] [place] [address]Cq# [phone] Hematocrit (Bld) [Volume fraction] 36.9 % Normal 35.0-47.0 [facility] Comment on above: Order Comment: Campu s: M Performed By: #### L 200.12682 ####[facility] [id number] [place] [address]St# [phone] Hemoglobin (Bld) [Mass/Vol] 12.3 g/dL Normal 11.5-15.5 [facility] Comment on above: Order Comment: Campu s: M Performed By: #### L 200.23574 ####[facility] EKPJGCMGVW[address] [place], [place] [address]Ph# [phone] IMMATR GRAN ABS 0.20 K/CU MM Normal Less than 2 [facility] Comment on above: Order Comment: Campu s: M Performed By: #### L 200.98403 ####[place] [address]Ph# [phone] IMMATURE GRAN % 2.2 % Normal Less than 2 [facility] Comment on above: Order Comment: Campu s: M Performed By: #### L 200.56676 ####[place] [address]Ph# [phone] LYMPH ABS 3.70 K/CU MM Normal 0.9-4.4 [facility] Comment on above: Order Comment: Campu s: M Performed By: #### L 200.06853 ####[address] [address]Wu# [phone] Lymphocytes/100 WBC (Bld) 33.6 % Normal 20-40 [facility] Comment on above: Order Comment: Campu s: M Performed By: #### L 200.65296 ####[facility] [id number] [place] [address]Gm# [phone] MCHC (RBC) [Mass/Vol] 33.3 g/dL Normal 32.0-36.0 [facility] Comment on above: Order Comment: Campu s: M Performed By: #### L 200.05285 ####[facility] [id number] [place], [place] [address]Ph# [phone] MCV (RBC) [Entitic vol] 86.8 fL Normal 80.0-99.0 [facility] Comment on above: Order Comment: Campu s: M Performed By: #### L 200.93182 ####[facility] DCSRCBTAEY7076 [place], [place] [address]Lr# [phone] MONO ABS 0.80 K/CU MM Normal 0.1-1.1 [facility] Comment on above: Order Comment: Campu s: M Performed By: #### L 200.08109 ####[place] [address]Ph# [phone] Monocytes/100 WBC (Bld) 7.3 % Normal 2-10 [facility] Comment on above: Order Comment: Campu s: M Performed By: #### L 200.36189 ####[place] [address]Ph# [phone] NEUTROPHIL ABS 6.00 K/CU MM Normal 2.0-8.3 [facility] Comment on above: Order Comment: Campu s: M Performed By: #### L 200.39090 ####[facility] [id number] [place], [place] [address]Ph# [phone] Neutrophils/100 WBC (Bld) 55.0 % Normal 45-75 [facility] Comment on above: Order Comment: Campu s: M Performed By: #### L 200.87083 ####[facility] [id number] [place], [place] [address]Ph# [phone] Nucleated RBC/100 WBC (Bld) [Ratio] 0.0 % Normal Less than 1 [facility] Comment on above: Order Comment: Campu s: M Performed By: #### L 200.26207 ####[facility] [id number] [place] [address]Bd# [phone] Platelet mean volume (Bld) [Entitic vol] 11.3 fL Normal 9.4-12.4 [facility] Comment on above: Order Comment: Campu s: M Performed By: #### L 200.28934 ####[facility] QHVVTQCEMT7156 [place], [place] [address]Az# [phone] PLT 173 K/CU MM Normal 150-450 [facility] Comment on above: Order Comment: Campu s: M Performed By: #### L 200.92555 ####[facility] [id number] [place], [place] [address]Go# [phone] RBC 4.25 M/CU MM Normal 3.90-5.30 [facility] Comment on above: Order Comment: Campu s: M Performed By: #### L 200.57561 ####[facility] LUHAPCVQDT3509 [place], [place] [address]Nw# [phone] WBC 10.9 K/CUMM Normal 4.5-11.0 [facility] Comment on above: Order Comment: Campu s: M Performed By: #### L 200.35747 ####[facility] PVZQWOPNLF[address] [place] [address]Jj# [phone] DISCH.SUMon 02-01-[address] [facility] GFR ESTon 02-01-2022 IF AMER Greater than 60 Normal [facility] Comment on above: Order Comment: Campu s: M Performed By: #### L 500.35557, L500.25259, L500.21904 ####[facility] CFBKKURHMN4292 [place], [place] [address]Ji# [phone] IF non-AFR AMER Greater than 60 Normal [facility] Comment on above: Order Comment: Campu s: M Performed By: #### L 500.74126, L500.50047, L500.76243 ####[facility] JKMOIZZJSY0917 [place], [place] [address]Zn# [phone] GLUCOSE METERon 02-01-2022 Glucose [Mass/Vol] 291 mg/dL High 70-115 [facility] Glucose [Mass/Vol] 89 mg/dL Normal 70-115 [facility] MAGNESIUMon 02-01-2022 Magnesium [Mass/Vol] 2.0 mg/dL Normal 1.6-2.6 [facility] Comment on above: Order Comment: Campu s: M Performed By: #### L 500.94005, L500.53687, L500.82528 ####[facility] TQZHUDUXUK0171 [place], [place] [address]Gq# [phone] BMPon 01-31-2022 Anion gap [Moles/Vol] 12 mmol/L Normal 5-16 [facility] Comment on above: Order Comment: Campu s: M Performed By: #### L 500.00331, L500.05738, L500.73151 ####[facility] TMQVASXIIY7793 [place], [place] [address]Bk# [phone] Calcium [Mass/Vol] 9.1 mg/dL Normal 8.5-10.5 [facility] Comment on above: Order Comment: Campu s: M Result Comment: NOTE NEW NORMAL RANGE DUE TO REAGENT CHANGE Performed By: #### L 500.74346, L500.58527, L500.52453 ####[facility] UVTYPATYIO2109 [place], [place] [address]Jf# [phone] Chloride [Moles/Vol] 106 mmol/L Normal 98-107 [facility] Comment on above: Order Comment: Campu s: M Performed By: #### L 500.16987, L500.17175, L500.66491 ####[facility] LMPGHBRBXN3769 [place], [place] [address]Ar# [phone] CO2 [Moles/Vol] 24.0 mmol/L Normal 21-32 [facility] Comment on above: Order Comment: Campu s: M Performed By: #### L 500.09519, L500.80194, L500.00974 ####[facility] XXXPQQEGNM7043 [place], [place] [address]Ze# [phone] Creatinine [Mass/Vol] 0.61 mg/dL Normal 0.510-0.950 [facility] Comment on above: Order Comment: Campu s: M Result Comment: Cleopatra ents receiving either N-Acetylcysteine (NAC) orMetamizole prior to venipuncture, may have falsely depressedresults. Performed By: #### L 500.03777, L500.08766, L500.05213 ####[facility] JYRRJVZKYT0795 [place], [place] [address]Jl# [phone] Glucose [Mass/Vol] 167 mg/dL High 70-100 [facility] Comment on above: Order Comment: Campu s: M Result Comment: Delt a check [id number] Normal Fasting; 100-125 Impaired Fasting; greaterthan 126 on more than one result- Diabetes. ADA guidelines.Results may be falsely elevated after the administration ofSulfapyridine.Results may be falsely depressed after the administration ofSulfasalazine. Performed By: #### L 500.93088, L500.78303, L500.84299 ####[facility] CGMEIQXVMX2767 [place], [place] [address]Ui# [phone] Potassium [Moles/Vol] 3.7 mmol/L Normal 3.5-5.1 [facility] Comment on above: Order Comment: Campu s: M Result Comment: Slig ht Hemolysis, Result may be affected. Performed By: #### L 500.64507, L500.92610, L500.92884 ####[facility] WHNILASBKC9625 [place], [place] [address]Cb# [phone] Sodium [Moles/Vol] 142 mmol/L Normal 136-145 [facility] Comment on above: Order Comment: Campu s: M Performed By: #### L 500.49920, L500.82514, L500.07665 ####[facility] ERJVSGUEPA4259 [place], [place] [address]De# [phone] Urea nitrogen [Mass/Vol] 7 mg/dL Normal 7-26 [facility] Comment on above: Order Comment: Campu s: M Performed By: #### L 500.21918, L500.01499, L500.51771 ####[facility] T[address]KAF[address] [place] [address]Xm# [phone] Urea nitrogen/Creatinine [Mass ratio] 11 mg/mg Low 15-24 [facility] Comment on above: Order Comment: Campu s: M Performed By: #### L 500.71439, L500.85992, L500.20824 ####[facility] IUOEPVUDHF[address] [place] [address]Gm# [phone] CBC W/DIFFon 01-31-2022 BASO ABS 0.10 K/CU MM Normal 0-0.2 [facility] Comment on above: Order Comment: Campu s: M Performed By: #### L 200.69934 ####[address] [address]Ky# [phone] Basophils/100 WBC (Bld) 0.5 % Normal 0-2 [facility] Comment on above: Order Comment: Campu s: M Performed By: #### L 200.10014 ####[facility] AEVKCUAVIX[address] [place] [address]Zs# [phone] EOS ABS 0.00 K/CU MM Normal 0-0.5 [facility] Comment on above: Order Comment: Campu s: M Performed By: #### L 200.03297 ####[facility] KKUCIDXPLR[address] [place] [address]St# [phone] Eosinophils/100 WBC (Bld) 0.1 % Normal 0-5 [facility] Comment on above: Order Comment: Campu s: M Performed By: #### L 200.80314 ####[facility] [id number] [place] [address]Ot# [phone] Erythrocyte distribution width (RBC) [Ratio] 13.9 % Normal 11-14.5 [facility] Comment on above: Order Comment: Campu s: M Performed By: #### L 200.10260 ####[facility] [id number] [place] [address]Md# [phone] Hematocrit (Bld) [Volume fraction] 37.5 % Normal 35.0-47.0 [facility] Comment on above: Order Comment: Campu s: M Performed By: #### L 200.31323 ####[facility] [id number] [place] [address]Lh# [phone] Hemoglobin (Bld) [Mass/Vol] 12.3 g/dL Normal 11.5-15.5 [facility] Comment on above: Order Comment: Campu s: M Performed By: #### L 200.78921 ####[place] [address]Ph# [phone] IMMATR GRAN ABS 0.30 K/CU MM Normal Less than 2 [facility] Comment on above: Order Comment: Campu s: M Performed By: #### L 200.87168 ####[place] [address]Ph# [phone] IMMATURE GRAN % 1.9 % Normal Less than 2 [facility] Comment on above: Order Comment: Campu s: M Performed By: #### L 200.38929 ####[place] [address]Ph# [phone] LYMPH ABS 4.00 K/CU MM Normal 0.9-4.4 [facility] Comment on above: Order Comment: Campu s: M Performed By: #### L 200.92764 ####[facility] AAMKWFGVFD[address] [place], [place] [address]Ph# [phone] Lymphocytes/100 WBC (Bld) 24.8 % Normal 20-40 [facility] Comment on above: Order Comment: Campu s: M Performed By: #### L 200.74698 ####[facility] WJMIUDLNQQ[address] [place] [address]Fy# [phone] MCHC (RBC) [Mass/Vol] 32.8 g/dL Normal 32.0-36.0 [facility] Comment on above: Order Comment: Campu s: M Performed By: #### L 200.54797 ####[facility] CCDTZRYUKF9763 [place], [place] [address]Rc# [phone] MCV (RBC) [Entitic vol] 87.6 fL Normal 80.0-99.0 [facility] Comment on above: Order Comment: Campu s: M Performed By: #### L 200.32543 ####[place] [address]Ph# [phone] MONO ABS 1.00 K/CU MM Normal 0.1-1.1 [facility] Comment on above: Order Comment: Campu s: M Performed By: #### L 200.41485 ####[place] [address]Ph# [phone] Monocytes/100 WBC (Bld) 6.2 % Normal 2-10 [facility] Comment on above: Order Comment: Campu s: M Performed By: #### L 200.42402 ####[place] [address]Ph# [phone] NEUTROPHIL ABS 10.60 K/CU MM High 2.0-8.3 [facility] Comment on above: Order Comment: Campu s: M Performed By: #### L 200.11369 ####[place] [address]Ph# [phone] Neutrophils/100 WBC (Bld) 66.5 % Normal 45-75 [facility] Comment on above: Order Comment: Campu s: M Performed By: #### L 200.52932 ####[facility] QVTHICJRRP174[address] [place] [address]Ai# [phone] Nucleated RBC/100 WBC (Bld) [Ratio] 0.0 % Normal Less than 1 [facility] Comment on above: Order Comment: Campu s: M Performed By: #### L 200.03365 ####[facility] HBFSITBMHW[address] [place], [place] [address]Ph# [phone] Platelet mean volume (Bld) [Entitic vol] 12.0 fL Normal 9.4-12.4 [facility] Comment on above: Order Comment: Campu s: M Performed By: #### L 200.06878 ####[facility] XJWZHQMXOD2878 [place], [place] [address]Au# [phone] PLT 183 K/CU MM Normal 150-450 [facility] Comment on above: Order Comment: Campu s: M Performed By: #### L 200.51187 ####[facility] DKLUUZRGZG6053 [place], [place] [address]Jf# [phone] RBC 4.28 M/CU MM Normal 3.90-5.30 [facility] Comment on above: Order Comment: Campu s: M Performed By: #### L 200.85680 ####[facility] LUIJKIBDSW9242 [place], [place] [address]Zm# [phone] WBC 16.0 K/CUMM High 4.5-11.0 [facility] Comment on above: Order Comment: Campu s: M Performed By: #### L 200.48362 ####[facility] KSHEGEHDJK0059 [place], [place] [address]Aq# [phone] GFR ESTon 01-31-2022 IF AMER Greater than 60 [facility] Comment [facility]: Order Comment: Campu s: M Performed By: #### L 500.85255, L500.56829, L500.71789 ####[facility] EGDFBFLNYN2617 [place], [place] [address]Gr# [phone] IF non-AFR AMER Greater than 60 Normal [facility] Comment on above: Order Comment: Campu s: M Performed By: #### L 500.73352, L500.09309, L500.59300 ####[facility] LUNCLMLHBH5285 [place], [place] [address]Qg# [phone] GLUCOSE METERon 01-31-2022 Glucose [Mass/Vol] 233 mg/dL High 70-115 [facility] Glucose [Mass/Vol] 216 mg/dL High 70-115 [facility] Glucose [Mass/Vol] 171 mg/dL High 70-115 [facility] Glucose [Mass/Vol] 230 mg/dL High 70-115 [facility] Glucose [Mass/Vol] 284 mg/dL High 70-115 [facility] MAGNESIUMon 01-31-2022 Magnesium [Mass/Vol] 1.8 mg/dL Normal 1.6-2.6 [facility] Comment on above: Order Comment: Campu s: M Performed By: #### L 500.36274, L500.35265, L500.53715 ####[facility] POFVRJFHRA2340 [place], [place] [address]Zi# [phone] PROG IMSon 01-31-2022 PROG IMS Normal [facility] Progress Note-Hospitalist Normal [facility] BMPon 01-30-2022 Anion gap [Moles/Vol] 8 mmol/L Normal 5-16 [facility] Comment on above: Order Comment: Campu s: M Performed By: #### L 500.29250, L500.41421 ####[facility] YTQPMSBWVS3584 [place], [place] [address]Tl# [phone] Calcium [Mass/Vol] 8.7 mg/dL Normal 8.5-10.5 [facility] Comment on above: Order Comment: Campu s: M Result Comment: NOTE NEW NORMAL RANGE DUE TO REAGENT CHANGE Performed By: #### L 500.47329, L500.81045 ####[facility] OBMILDREKJ4229 [place], [place] [address]Gh# [phone] Chloride [Moles/Vol] 114 mmol/L High 98-107 [facility] Comment on above: Order Comment: Campu s: M Performed By: #### L 500.25195, L500.32191 ####[facility] GBBUDMOSON9469 [place], [place] [address]Lb# [phone] CO2 [Moles/Vol] 22.0 mmol/L Normal 21-32 [facility] Comment on above: Order Comment: Campu s: M Performed By: #### L 500.51062, L500.06620 ####[facility] GJWDPXTOSR3397 [place], [place] [address]Dx# [phone] Creatinine [Mass/Vol] 0.68 mg/dL Normal 0.510-0.950 [facility] Comment on above: Order Comment: Campu s: M Result Comment: Cleopatra ents receiving either N-Acetylcysteine (NAC) orMetamizole prior to venipuncture, may have falsely depressedresults. Performed By: #### L 500.76040, L500.84040 ####[facility] AUIJDDGQAK3449 [place], [place] [address]Nb# [phone] Glucose [Mass/Vol] 87 mg/dL Normal 70-100 [facility] Comment on above: Order Comment: Campu s: M Result Comment: 70-1 00- Normal Fasting; 100-125 Impaired Fasting; greaterthan 126 on more than one result- Diabetes. ADA guidelines.Results may be falsely elevated after the administration ofSulfapyridine.Results may be falsely depressed after the administration ofSulfasalazine. Performed By: #### L 500.68956, L500.68851 ####[facility] TIPSXYHPWC3975 [place], [place] [address]Kb# [phone] Potassium [Moles/Vol] 3.2 mmol/L Low 3.5-5.1 [facility] Comment on above: Order Comment: Campu s: M Result Comment: Slig ht Hemolysis, Result may be affected. Performed By: #### L 500.06451, L500.81790 ####[facility] KCSKLZBVRK3597 [place], [place] [address]Of# [phone] Sodium [Moles/Vol] 144 mmol/L Normal 136-145 [facility] Comment on above: Order Comment: Campu s: M Performed By: #### L 500.31359, L500.43098 ####[facility] XYVXYMWKNN1494 [place], [place] [address]Wa# [phone] Urea nitrogen [Mass/Vol] 14 mg/dL Normal 7-26 [facility] Comment on above: Order Comment: Campu s: M Performed By: #### L 500.48321, L500.58200 ####[facility] XVEOFYRIGN8972 [place], [place] [address]Ie# [phone] Urea nitrogen/Creatinine [Mass ratio] 20 mg/mg Normal 15-24 [facility] Comment on above: Order Comment: Campu s: M Performed By: #### L 500.66141, L500.60071 ####[facility] GBVQHIBIJK4206 [place], [place] [address]Hm# [phone] Anion gap [Moles/Vol] 5 mmol/L Normal 5-16 [facility] Comment on above: Order Comment: Campu s: M Performed By: #### L 500.45986, L500.32942 ####[facility] CTFKWADFAT4618 [place], [place] [address]Xo# [phone] Calcium [Mass/Vol] 9.0 mg/dL Normal 8.5-10.5 [facility] Comment on above: Order Comment: Campu s: M Result Comment: NOTE NEW NORMAL RANGE DUE TO REAGENT CHANGE Performed By: #### L 500.05113, L500.43629 ####[facility] KRSLHWJEDV4247 [place], [place] [address]Sk# [phone] Chloride [Moles/Vol] 114 mmol/L High 98-107 [facility] Comment on above: Order Comment: Campu s: M Result Comment: Delt a check reviewed Performed By: #### L 500.02909, L500.66310 ####[facility] XAJLNKBXBY2553 [place], [place] [address]Us# [phone] CO2 [Moles/Vol] 22.0 mmol/L Normal 21-32 [facility] Comment on above: Order Comment: Campu s: M Result Comment: Delt a check reviewed Performed By: #### L 500.74945, L500.60075 ####[facility] [address]FHQGJCIZ[address] [place] [address]Zz# [phone] Creatinine [Mass/Vol] 0.74 mg/dL Normal 0.510-0.950 [facility] Comment on above: Order Comment: Campu s: M Result Comment: Cleopatra ents receiving either N-Acetylcysteine (NAC) orMetamizole prior to venipuncture, may have falsely depressedresults. Performed By: #### L 500.92872, L500.72613 ####[facility] NUYWHCDDTR6441 [place], [place] [address]Zo# [phone] Glucose [Mass/Vol] 95 mg/dL Normal 70-100 [facility] Comment on above: Order Comment: Campu s: M Result Comment: 70-1 00- Normal Fasting; 100-125 Impaired Fasting; greaterthan 126 on more than one result- Diabetes. ADA guidelines.Results may be falsely elevated after the administration ofSulfapyridine.Results may be falsely depressed after the administration ofSulfasalazine. Performed By: #### L 500.92308, L500.82650 ####[facility] JMJEVUNCOU2758 [place], [place] [address]Tv# [phone] Potassium [Moles/Vol] 3.6 mmol/L Normal 3.5-5.1 [facility] Comment on above: Order Comment: Campu s: M Performed By: #### L 500.19184, L500.92611 ####[facility] LYKGVLVRAL1309 [place], [place] [address]Tn# [phone] Sodium [Moles/Vol] 141 mmol/L Normal 136-145 [facility] Comment on above: Order Comment: Campu s: M Performed By: #### L 500.49629, L500.80570 ####[facility] RIAMAAXKOK5031 [place], [place] [address]Iy# [phone] Urea nitrogen [Mass/Vol] 18 mg/dL Normal 7-26 [facility] Comment on above: Order Comment: Campu s: M Performed By: #### L 500.08982, L500.86422 ####[facility] [id number] [place] [id number]# [phone] Urea nitrogen/Creatinine [Mass ratio] 24 mg/mg Normal 15-24 [facility] Comment on above: Order Comment: Benjiu s: M Performed By: #### L 500.50367, L500.92665 ####[facility] [id number] [place], [place] [address]Nv# [phone] CBC W/DIFFon 01-30-2022 BASO ABS 0.00 K/CU MM Normal 0-0.2 [facility] Comment on above: Order Comment: Campu s: MRN/MD Draw Performed By: #### L 200.40804 ####[facility] [id number] [place], [place] [id number]# [phone] Basophils/100 WBC (Bld) 0.2 % Normal 0-2 [facility] Comment on above: Order Comment: Campu s: MRN/MD Draw Performed By: #### L 200.18512 ####[facility] [id number] [place] [address]Kv# [phone] EOS ABS 0.00 K/CU MM Normal 0-0.5 [facility] Comment on above: Order Comment: Campu s: MRN/MD Draw Performed By: #### L 200.00372 ####[facility] [id number] [place] [address]Px# [phone] Eosinophils/100 WBC (Bld) 0.0 % Normal 0-5 [facility] Comment on above: Order Comment: Campu s: MRN/MD Draw Performed By: #### L 200.67944 ####[facility] [id number] [place] [address]Nb# [phone] Erythrocyte distribution width (RBC) [Ratio] 14.3 % Normal 11-14.5 [facility] [place] Comment on above: Order Comment: Campu s: MRN/MD Draw Performed By: #### L 200.37185 ####[facility] [id number] [place], [place] [address]Ph# [phone] Hematocrit (Bld) [Volume fraction] 34.4 % Low 35.0-47.0 [facility] [place] Comment on above: Order Comment: Campu s: MRN/MD Draw Performed By: #### L 200.46385 ####[facility] [id number] [place], [place] [address]Ph# [phone] Hemoglobin (Bld) [Mass/Vol] 11.3 g/dL Low 11.5-15.5 [facility] [place] Comment on above: Order Comment: Campu s: MRN/MD Draw Performed By: #### L 200.79228 ####[facility] [id number] [place] [address]# [phone] IMMATR GRAN ABS 0.20 K/CU MM Normal Less than 2 [facility] [place] Comment on above: Order Comment: Benjiu s: MRN/MD Draw Performed By: #### L 200.84422 ####[facility] [id number] [place], [place] [address]Ph# [phone] IMMATURE GRAN % 0.8 % Normal Less than 2 [facility] [place] Comment on above: Order Comment: Benjiu s: MRN/MD Draw Performed By: #### L 200.77581 ####[facility] [id number] [place], [place] [address]Ph# [phone] LYMPH ABS 2.20 K/CU MM Normal 0.9-4.4 [facility] [place] Comment on above: Order Comment: Campu s: MRN/MD Draw Performed By: #### L 200.48522 ####[facility] [id number] [place], [place] [address]Ph# [phone] Lymphocytes/100 WBC (Bld) 9.0 % Low 20-40 [facility] [place] Comment on above: Order Comment: Campu s: MRN/MD Draw Performed By: #### L 200.22806 ####[facility] [id number] [place], [place] [address]Ph# [phone] MCHC (RBC) [Mass/Vol] 32.8 g/dL Normal 32.0-36.0 [facility] [place] Comment on above: Order Comment: Campu s: MRN/MD Draw Performed By: #### L 200.70713 ####[facility] ZKWDCSEJOC5576 [place], [place] [address]Hw# [phone] MCV (RBC) [Entitic vol] 88.0 fL Normal 80.0-99.0 [facility] [place] Comment on above: Order Comment: Campu s: MRN/MD Draw Performed By: #### L 200.16581 ####[facility] KANMIBFEGB0876 [place], [place] [address]Dj# [phone] MONO ABS 1.60 K/CU MM High 0.1-1.1 [facility] Comment on above: Order Comment: Benjiu s: MRN/MD Draw Performed By: #### L 200.62565 ####[facility] ICZOOHWIWV5319 [place] [address]Ph# [phone] Monocytes/100 WBC (Bld) 6.5 % Normal 2-10 [facility] Comment on above: Order Comment: Benjiu s: MRN/MD Draw Performed By: #### L 200.99519 ####[facility] MMNKAYNXUA1675 [place], [place] [address]Qr# [phone] NEUTROPHIL ABS 20.60 K/CU MM High 2.0-8.3 [facility] Comment on above: Order Comment: Campu s: MRN/MD Draw Performed By: #### L 200.82474 ####[facility] UOJWZVLEOE6290 [place], [place] [address]Zt# [phone] Neutrophils/100 WBC (Bld) 83.5 % High 45-75 [facility] [place] Comment on above: Order Comment: Campu s: MRN/MD Draw Performed By: #### L 200.60597 ####[facility] [id number] [place], [place] [address]Tp# [phone] Nucleated RBC/100 WBC (Bld) [Ratio] 0.0 % Normal Less than 1 [facility] [place] Comment on above: Order Comment: Campu s: MRN/MD Draw Performed By: #### L 200.43475 ####[facility] VZAFHTJMBY3423 [place], [place] [address]Qb# [phone] Platelet mean volume (Bld) [Entitic vol] 12.0 fL Normal 9.4-12.4 [facility] [place] Comment on above: Order Comment: Campu s: MRN/MD Draw Performed By: #### L 200.95504 ####[facility] KIBADVAPZE5967 [place], [place] [address]Js# [phone] PLT 198 K/CU MM Normal 150-450 [facility] Comment on above: Order Comment: Campu s: MRN/MD Draw Performed By: #### L 200.90974 ####[facility] CLGDTZXEHK1494 [place], [place] [address]Qa# [phone] RBC 3.91 M/CU MM Normal 3.90-5.30 [facility] Comment on above: Order Comment: Campu s: MRN/MD Draw Performed By: #### L 200.41117 ####[facility] [id number] [place], [place] [address]Pb# [phone] WBC 24.7 K/CUMM High 4.5-11.0 [facility] Comment on above: Order Comment: Campu s: MRN/MD Draw Performed By: #### L 200.58892 ####[facility] ZNAZKYCHID5336 [place], [place] [address]Za# [phone] GFR ESTon 01-30-2022 IF AMER Greater than 60 Normal [facility] [place] Comment on above: Order Comment: Campu s: M Performed By: #### L 500.68094, L500.83446 ####[facility] NUYGUNBDVG7592 [place], [place] [address]Ra# [phone] IF non-AFR AMER Greater than 60 Normal [facility] [place] Comment on above: Order Comment: Campu s: M Performed By: #### L 500.13163, L500.01727 ####[facility] HVAEZMFQBT6338 [place], [place] [address]Tn# [phone] IF AMER Greater than 60 Normal [facility] [place] Comment on above: Order Comment: Campu s: M Performed By: #### L 500.54895, L500.31773 ####[facility] FCALGUBGNH3707 [place], [place] [address]Nf# [phone] IF non-AFR AMER Greater than 60 Normal [facility] [place] Comment on above: Order Comment: Campu s: M Performed By: #### L 500.52287, L500.52831 ####[facility] GNBNAFFWGW2649 [place], [place] [address]Vy# [phone] GLUCOSE METERon 01-30-2022 Glucose [Mass/Vol] 214 mg/dL High 70-115 [facility] Glucose [Mass/Vol] 219 mg/dL High 70-115 [facility] Glucose [Mass/Vol] 114 mg/dL Normal 70-115 [facility] Glucose [Mass/Vol] 125 mg/dL High 70-115 [facility] Glucose [Mass/Vol] 120 mg/dL High 70-115 [facility] Glucose [Mass/Vol] 86 mg/dL Normal 70-115 [facility] Glucose [Mass/Vol] 134 mg/dL High 70-115 [facility] Glucose [Mass/Vol] 105 mg/dL Normal 70-115 [facility] Glucose [Mass/Vol] 94 mg/dL Normal 70-115 [facility] Glucose [Mass/Vol] 189 mg/dL High 70-115 [facility] Glucose [Mass/Vol] 122 mg/dL High 70-115 [facility] Glucose [Mass/Vol] 188 mg/dL High 70-115 [facility] Glucose [Mass/Vol] 206 mg/dL High 70-115 [facility] MAGNESIUMon 01-30-2022 Magnesium [Mass/Vol] 1.9 mg/dL Normal 1.6-2.6 [facility] [place] Comment on above: Order Comment: Campu s: MRN/ Draw Performed By: #### L 500.70812, L500.16935 ####[facility] [id number] [place], [place] [address]Ly# [phone] PHOSon 01-30-2022 Phosphate [Mass/Vol] 2.20 mg/dL Low 2.5-4.9 [facility] Comment on above: Order Comment: Zach s: MRN/MD Draw Result Comment: Elev ated m-protein (paraprotein) levels in the serum may beexhibited in patients with monoclonal gammopathies, causingfalsely elevated inorganic phosphorus results. Performed By: #### L 500.47306, L500.65498 ####[facility] CMZRCYQILD6927 [place], [place] [address]Zu# [phone] PROG IMSon 01-30-2022 PROG IMS Normal [facility] Progress Note-Hospitalist Normal [facility] PROG.INTENon 01-30-2022 PROG.INTEN Normal [facility] Progress Note-Core Baker Normal [facility] BETA-HYDRO BUTon 01-29-2022 BETA-HYDRO BUT 3.92 MMOL/L High 0.02-0.27 [facility] Comment on above: Order Comment: Zach richter: M Result Comment: Bloo d ketone levels will vary depending on several factors(for example, food intake, alcohol intake and conditionssuch as ketoacidosis). Patients should be fasting 12 hoursprior to collection.PATIENT SAMPLES WITH HIGH LEVELS OF M-PROTEIN (I.E.GAMMOPATHY) MAY AFFECT THE ACCURACY OF THIS ASSAY. Performed By: #### L 500.88497 ####[facility] WTTBLKHVWK3069 [place], [place] [address]Ru# [phone] BMPon 01-29-2022 Anion gap [Moles/Vol] 18 mmol/L High 5-16 [facility] Comment on above: Order Comment: Zach richter: M Performed By: #### L 500.24540, L500.13725, L500.90150, L500.07537, L500.35667 ####[facility] HETDFUGSML3054 [place], [place] [address]Hy# [phone] Calcium [Mass/Vol] 9.9 mg/dL Normal 8.5-10.5 [facility] Comment on above: Order Comment: Campu s: M Result Comment: NOTE NEW NORMAL RANGE DUE TO REAGENT CHANGE Performed By: #### L 500.71035, L500.34451, L500.53161, L500.83933, L500.21150 ####[facility] KXRVZMQGNE9209 [place], [place] [address]Og# [phone] Chloride [Moles/Vol] 103 mmol/L Normal 98-107 [facility] Comment on above: Order Comment: Campu s: M Performed By: #### L 500.06563, L500.20929, L500.89159, L500.31670, L500.22049 ####[facility] UBYIIRWLCX4029 [place], [place] [address]El# [phone] CO2 [Moles/Vol] 15.0 mmol/L Low 21-32 [facility] Comment on above: Order Comment: Campu s: M Performed By: #### L 500.44006, L500.19847, L500.37660, L500.80266, L500.22594 ####[facility] JDXTWEVRAC4404 [place], [place] [address]To# [phone] Creatinine [Mass/Vol] 0.71 mg/dL Normal 0.510-0.950 [facility] Comment on above: Order Comment: Campu s: M Result Comment: Cleopatra ents receiving either N-Acetylcysteine (NAC) orMetamizole prior to venipuncture, may have falsely depressedresults. Performed By: #### L 500.47453, L500.61177, L500.05644, L500.38325, L500.82090 ####[facility] EXMRUEWDTJ6984 [place], [place] [address]Ib# [phone] Glucose [Mass/Vol] 412 mg/dL High 70-100 [facility] Comment on above: Order Comment: Campu s: M Result Comment: 70-1 00- Normal Fasting; 100-125 Impaired Fasting; greaterthan 126 on more than one result- Diabetes. ADA guidelines.Results may be falsely elevated after the administration ofSulfapyridine.Results may be falsely depressed after the administration ofSulfasalazine. Performed By: #### L 500.47439, L500.50538, L500.84086, L500.98700, L500.04019 ####[facility] HPWUFERARD8406 [place], [place] [address]Ne# [phone] Potassium [Moles/Vol] 4.2 mmol/L Normal 3.5-5.1 [facility] Comment on above: Order Comment: Campu s: M Performed By: #### L 500.05237, L500.87977, L500.52440, L500.31998, L500.62348 ####[facility] UCMGCVNPYL0060 [place], [place] [address]Yl# [phone] Sodium [Moles/Vol] 136 mmol/L Normal 136-145 [facility] Comment on above: Order Comment: Campu s: M Performed By: #### L 500.91025, L500.35878, L500.85766, L500.57960, L500.53370 ####[facility] LLJXWOTVGQ7304 [place], [place] [address]Jk# [phone] Urea nitrogen [Mass/Vol] 23 mg/dL Normal 7-26 [facility] Comment on above: Order Comment: Campu s: M Performed By: #### L 500.39303, L500.18090, L500.46129, L500.37316, L500.63671 ####[facility] DZDLHFWGWS7027 [place], [place] [address]Yf# [phone] Urea nitrogen/Creatinine [Mass ratio] 32 mg/mg High 15-24 [facility] Comment on above: Order Comment: Campu s: M Performed By: #### L 500.68180, L500.35205, L500.66560, L500.73158, L500.45312 ####[facility] PGSSBPJTGM7759 [place], [place] [address]Gm# [phone] CBC W/DIFFon 01-29-2022 BASO ABS 0.00 K/CU MM Normal 0-0.2 [facility] Comment on above: Order Comment: Campu s: M Performed By: #### L 200.54118 ####[facility] [id number] [place], [place] [address]Ph# [phone] Basophils/100 WBC (Bld) 0.1 % Normal 0-2 [facility] Comment on above: Order Comment: Campu s: M Performed By: #### L 200.84182 ####[address] [address]Vz# [phone] EOS ABS 0.00 K/CU MM Normal 0-0.5 [facility] Comment on above: Order Comment: Campu s: M Performed By: #### L 200.78246 ####[address] [address]Zj# [phone] Eosinophils/100 WBC (Bld) 0.1 % Normal 0-5 [facility] Comment on above: Order Comment: Campu s: M Performed By: #### L 200.57401 ####[facility] [id number] [place] [address]Bm# [phone] Erythrocyte distribution width (RBC) [Ratio] 13.6 % Normal 11-14.5 [facility] Comment on above: Order Comment: Campu s: M Performed By: #### L 200.51511 ####[facility] [id number] [place] [address]Zn# [phone] Hematocrit (Bld) [Volume fraction] 38.7 % Normal 35.0-47.0 [facility] Comment on above: Order Comment: Campu s: M Performed By: #### L 200.96489 ####[facility] [id number] [place], [place] [address]Ph# [phone] Hemoglobin (Bld) [Mass/Vol] 12.6 g/dL Normal 11.5-15.5 [facility] Comment on above: Order Comment: Campu s: M Performed By: #### L 200.97946 ####[facility] IGUCZKMNNR[address] [place] [address]Dg# [phone] IMMATR GRAN ABS 0.10 K/CU MM Normal Less than 2 [facility] Comment on above: Order Comment: Campu s: M Performed By: #### L 200.52236 ####[place] [address]Ph# [phone] IMMATURE GRAN % 0.8 % Normal Less than 2 [facility] Comment on above: Order Comment: Campu s: M Performed By: #### L 200.42944 ####[place] [address]Ph# [phone] LYMPH ABS 0.80 K/CU MM Low 0.9-4.4 [facility] Comment on above: Order Comment: Campu s: M Performed By: #### L 200.37631 ####[place] [address]Ph# [phone] Lymphocytes/100 WBC (Bld) 4.4 % Low 20-40 [facility] Comment on above: Order Comment: Campu s: M Performed By: #### L 200.42447 ####[facility] [id number] [place], [place] [address]Ph# [phone] MCHC (RBC) [Mass/Vol] 32.6 g/dL Normal 32.0-36.0 [facility] Comment on above: Order Comment: Campu s: M Performed By: #### L 200.17491 ####[facility] [id number] [place], [place] [address]Ph# [phone] MCV (RBC) [Entitic vol] 86.4 fL Normal 80.0-99.0 [facility] Comment on above: Order Comment: Campu s: M Performed By: #### L 200.15518 ####[facility] DYHMEWMUGB6467 [place], [place] [address]Xf# [phone] MONO ABS 0.30 K/CU MM Normal 0.1-1.1 [facility] Comment on above: Order Comment: Campu s: M Performed By: #### L 200.33896 ####[facility] [id number] [place], [place] [address]Ph# [phone] Monocytes/100 WBC (Bld) 1.7 % Low 2-10 [facility] Comment on above: Order Comment: Campu s: M Performed By: #### L 200.99721 ####[address] [address]Oi# [phone] NC/NC NORMOCYTIC Normal [facility] Comment on above: Order Comment: Campu s: M Performed By: #### L 200.50849 ####[place] [address]Ph# [phone] NEUTROPHIL ABS 17.00 K/CU MM High 2.0-8.3 [facility] Comment on above: Order Comment: Campu s: M Performed By: #### L 200.88369 ####[address] [address]Oe# [phone] Neutrophils/100 WBC (Bld) 92.9 % High 45-75 [facility] Comment on above: Order Comment: Campu s: M Performed By: #### L 200.59510 ####[facility] [id number] [place] [address]Vd# [phone] Nucleated RBC/100 WBC (Bld) [Ratio] 0.0 % Normal Less than 1 [facility] Comment on above: Order Comment: Campu s: M Performed By: #### L 200.85552 ####[facility] [id number] [place], [place] [address]Ph# [phone] Platelet mean volume (Bld) [Entitic vol] 13.5 fL High 9.4-12.4 [facility] Comment on above: Order Comment: Campu s: M Performed By: #### L 200.47531 ####[facility] [id number] [place], [place] [address]Jz# [phone] PLT 174 K/CU MM Normal 150-450 [facility] Comment on above: Order Comment: Campu s: M Performed By: #### L 200.76786 ####[facility] DECEKCEVRU6260 [place], [place] [address]Rb# [phone] PLT EST [facility] Comment on above: Order Comment: Campu s: M Performed By: #### L 200.63709 ####[facility] TUSBSACHJH2294 [place], [place] [address]Gt# [phone] RBC 4.48 M/CU MM Normal 3.90-5.30 [facility] Comment on above: Order Comment: Campu s: M Performed By: #### L 200.48773 ####[facility] HYUCZPTWFK2092 [place], [place] [address]Je# [phone] WBC 18.3 K/CUMM High 4.5-11.0 [facility] Comment on above: Order Comment: Campu s: M Performed By: #### L 200.62180 ####[facility] QXUKCSJNIQ[address] [place] [address]Sp# [phone] CONS.INTENon 01-29-2022 CONS.INTEN [facility] Consultation-Intensivi [facility] Stacie 01-29-2022 EMERGENCY PHYSICIAN REPORT This is a preliminary report only, as the practitioner review and authentication has not occurred. Normal [facility] 01-29-2022 IF AMER Greater than 60 [facility] Comment on above: Order Comment: Campu s: M Performed By: #### L 500.49230, L500.65045, L500.60242, L500.28329, L500.41840 ####[facility] UWYCHICPLA4392 [place], [place] [address]Vm# [phone] IF non-AFR AMER Greater than 60 Normal [facility] Comment on above: Order Comment: Zach s: M Performed By: #### L 500.10439, L500.35530, L500.73176, L500.39249, L500.37311 ####[facility] WFMKJLECIB7510 [place], [place] [address]Qc# [phone] GLUCOSE METERon 01-29-2022 Glucose [Mass/Vol] 135 mg/dL High 70-115 [facility] Glucose [Mass/Vol] 146 mg/dL High 70-115 [facility] Glucose [Mass/Vol] 141 mg/dL High 70-115 [facility] Glucose [Mass/Vol] 117 mg/dL High 70-115 [facility] Glucose [Mass/Vol] 151 mg/dL High 70-115 [facility] Glucose [Mass/Vol] 221 mg/dL High 70-115 [facility] Glucose [Mass/Vol] 286 mg/dL High 70-115 [facility] Glucose [Mass/Vol] 382 mg/dL High 70-115 [facility] Glucose [Mass/Vol] 402 mg/dL High 70-115 [facility] HCGon 01-29-2022 HCG SER RESULT Negative Normal NEGATIVE [facility] Comment on above: Order Comment: Zach s: M Performed By: #### L 500.94974, L500.77844, L500.85344, L500.87930, L500.91874 ####[facility] GWDBASACDQ9062 [place], [place] [address]Ky# [phone] HP.IMS.ADMon 01-29-2022 Admission-H&P Normal [facility] HP.IMS.ADM Normal [facility] LIPASEon 01-29-2022 Lipase [Catalytic activity/Vol] 22 U/L Normal 12-60 [facility] Comment on above: Order Comment: Zach s: M Result Comment: NOTE NEW NORMAL RANGE DUE TO REAGENT CHANGE Performed By: #### L 500.15596, L500.59112, L500.78605, L500.70945, L500.95335 ####[facility] HULLHQWEUT6259 [place], [place] [address]Hq# [phone] LIVERon 01-29-2022 Albumin [Mass/Vol] 4.5 g/dL Normal 3.2-5.0 [facility] Comment on above: Order Comment: Campu s: M Performed By: #### L 500.25962, L500.54428, L500.19193, L500.54938, L500.48163 ####[facility] WDKHMBFMAW3839 [place], [place] [address]Pc# [phone] Albumin/Globulin [Mass ratio] 1.7 {ratio} Normal 0.8-2.0 [facility] Comment on above: Order Comment: Campu s: M Performed By: #### L 500.48104, L500.26262, L500.33230, L500.10213, L500.90232 ####[facility] HSCJJVFOIR4153 [place], [place] [address]Hd# [phone] ALK PHOS 104 U/L Normal 45-117 [facility] Comment on above: Order Comment: Campu s: M Performed By: #### L 500.54546, L500.95262, L500.77358, L500.98859, L500.09970 ####[facility] ZEGBEAWDPS2263 [place], [place] [address]Lf# [phone] ALT [Catalytic activity/Vol] 28 U/L Normal 13-61 [facility] Comment on above: Order Comment: Campu s: M Result Comment: RESU LTS MAY BE FALSELY DEPRESSED AFTER THE ADMINISTRATION OFSULFASALAZINE AND/OR SULFAPYRIDINE. Performed By: #### L 500.16765, L500.97639, L500.08357, L500.03999, L500.22347 ####[facility] NVHTKWEZYA0331 [place], [place] [address]Aj# [phone] AST [Catalytic activity/Vol] 24 U/L Normal 8-34 [facility] Comment on above: Order Comment: Campu s: M Result Comment: RESU LTS MAY BE FALSELY DEPRESSED AFTER THE ADMINISTRATION OFSULFASALAZINE AND/OR SULFAPYRIDINE. Performed By: #### L 500.40000, L500.53394, L500.41112, L500.82317, L500.18611 ####[facility] OHBKNCYMWL7643 [place], [place] [address]Pk# [phone] BILI DIRECT 0.3 MG/DL Normal 0.00-0.36 [facility] Comment on above: Order Comment: Campu s: M Result Comment: NOTE NEW NORMAL RANGE DUE TO REAGENT CHANGE Performed By: #### L 500.33369, L500.59674, L500.91494, L500.28181, L500.69670 ####[facility] WVEJMBHFWE8918 [place], [place] [address]Ph# [phone] BILI TOTAL 0.90 MG/DL Normal 0.2-1.0 [facility] Comment on above: Order Comment: Campu s: M Performed By: #### L 500.02018, L500.05027, L500.55983, L500.11793, L500.94870 ####[facility] BMNXXNOQQU2309 [place], [place] [address]So# [phone] Globulin (S) [Mass/Vol] 2.7 g/dL Normal 2.2-4.2 [facility] Comment on above: Order Comment: Campu s: M Performed By: #### L 500.97930, L500.00390, L500.76588, L500.82606, L500.96931 ####[facility] SGROSMQCIY8187 [place], [place] [address]Dv# [phone] Protein [Mass/Vol] 7.2 g/dL Normal 6.0-8.5 [facility] Comment on above: Order Comment: Campu s: M Performed By: #### L 500.19844, L500.66117, L500.76305, L500.60173, L500.73561 ####[facility] OABABBZQPE6716 [place], [place] [address]Hb# [phone] MRSA PCRon 01-29-2022 MRSA PCR Negative Normal NEGATIVE [facility] Comment on above: Order Comment: Zach s: M Result Comment: SULMA SCHMITZ NOTE: TESTING DONE BY PCR TECHNOLOGY.The SA Nasal complete MRSA assay on the [place] GeneXperthas not been validated for use on patients under 21 years ofage. All patients under 21 years of age, run on theTutameeXpert will be confirmed by a Blood [place] plate, followedby an SHINE, to confirm MRSA. Performed By: #### L 770.26766 ####[facility] [id number] [place], [place] [address]Zo# [phone] SA PCR Positive High NEGATIVE [facility] Comment on above: Order Comment: Zach s: Millicent Result Comment: PLESelene SCHMITZ NOTE: TESTING DONE BY PCR TECHNOLOGY. Performed By: #### L 770.50073 ####[facility] [id number] [place] [address]Uj# [phone] PORTABLE CHESTon 01-29-[address] [facility] [id number] 01-29-2022 SARS-CoV-2 (COVID-19) RNA DANIEL+probe Ql (Unsp spec) Negative Invalid Interpretation Code Negative [facility] Comment on above: Order Comment: Zach [...] performed by PCR. Performed By: #### L 770.94718 ####[facility] [id number] [place], [place] [address]Gd# [phone] UA COMPLETEon 01-29-2022 Color (U) Straw Normal [facility] [place] Comment on above: Order Comment: Campu s: M Performed By: #### L 600.15774 ####[facility] [facility] [id number] [place] [address] 90742Cm# [phone] Glucose (U) [Mass/Vol] 500 mg/dL Normal NORMAL Me [facility] [place] Comment on above: Order Comment: Campu s: M Performed By: #### L 600.19598 ####[facility] [id number] [place] [address] 43604Lu# [phone] UA APPEARANCE Clear Normal CLEAR [facility] Comment on above: Order Comment: Campu s: M Performed By: #### L 600.84960 ####[facility] HRNLIYECTZ[address] [place] [address] 36554Ly# [phone] UA BILIRUBIN Negative Normal NEGATIVE [facility] Comment on above: Order Comment: Campu s: M Performed By: #### L 600.92785 ####[facility] MMODDPRPOI[address] [place] [address] 69791Yk# [phone] UA BLOOD Negative Normal NEGATIVE [facility] Comment on above: Order Comment: Campu s: M Performed By: #### L 600.95556 ####[facility] BDAEPLKVKH[address] [place] [address] 64890Io# [phone] UA KETONE 80 Normal NEGATIVE [facility] Comment on above: Order Comment: Campu s: M Performed By: #### L 600.35139 ####[facility] LKOCQAWQLY[address] [place] [address] 85717Bq# [phone] UA LK ESTERASE Negative Normal NEGATIVE [facility] Comment on above: Order Comment: Campu s: M Performed By: #### L 600.40750 ####[facility] ZIAMCOMVPN[address] [place] [address] 76296Wk# [phone] UA NITRITE Negative Normal NEGATIVE [facility] Comment on above: Order Comment: Campu s: M Performed By: #### L 600.48952 ####[facility] LMTKKNHNEO5105 [place], [place] [address]No# [phone] UA PH 6.0 Normal 5-6 [facility] Comment on above: Order Comment: Campu s: M Performed By: #### L 600.34813 ####[facility] ERCJXRQHYU2414 [place], [place] [address]Ec# [phone] UA PROTEIN Negative Normal NEGATIVE [facility] Comment on above: Order Comment: Campu s: M Performed By: #### L 600.06714 ####[facility] [address]FQ[address] [place] [address] 98268Qc# [phone] UA SPEC GRAV 1.028 Normal 1.005-1.030 [facility] Comment on above: Order Comment: Campu s: M Performed By: #### L 600.80933 ####[address] [address]Lu# [phone] UA UROBILINOGEN Negative Normal NORMAL [facility] Comment on above: Order Comment: Campu s: M Performed By: #### L 600.17532 ####[facility] VKWVKJNIAH[address] [place] [address] 45244Ta# [phone] VBG PHon 01-29-2022 VBG PH 7.36 MMHG Normal 7.31-7.41 [facility] Comment on above: Order Comment: Campu s: M Performed By: #### L 100.95970 ####[facility] [address]MGHQYVR[address]645[address] [place] [address] 27537Nl# [phone] BMPon 12-30-2021 Anion gap [Moles/Vol] 4 mmol/L Low 5-16 [facility] Comment on above: Order Comment: Campu s: M Performed By: #### L 500.28521, L500.66135 ####[facility] C[address]YHKBGLA[address] [place] [address] 24889Eh# [phone] Calcium [Mass/Vol] 8.8 mg/dL Normal 8.5-10.5 [facility] Comment on above: Order Comment: Campu s: M Result Comment: NOTE NEW NORMAL RANGE DUE TO REAGENT CHANGE Performed By: #### L 500.41789, L500.84422 ####[facility] KGOIRRCCBC2297 [place], [place] [address]Lu# [phone] Chloride [Moles/Vol] 109 mmol/L High 98-107 [facility] Comment on above: Order Comment: Campu s: M Performed By: #### L 500.13810, L500.12047 ####[facility] PEVHIMIIGT0659 [place], [place] [address]Bb# [phone] CO2 [Moles/Vol] 28.0 mmol/L Normal 21-32 [facility] Comment on above: Order Comment: Campu s: M Performed By: #### L 500.75658, L5.13296 ####[facility] CDDRFPHAGB[address] [place] [address] 07507Bx# [phone] Creatinine [Mass/Vol] 0.64 mg/dL Normal 0.510-0.950 [facility] Comment on above: Order Comment: Campu s: M Result Comment: Cleopatra ents receiving either N-Acetylcysteine (NAC) orMetamizole prior to venipuncture, may have falsely depressedresults. Performed By: #### L 500.00805, L5.01043 ####[facility] YCEESHRGEM[address] [place] [address] 22879Dy# [phone] Glucose [Mass/Vol] 160 mg/dL High 70-100 [facility] Comment on above: Order Comment: Campu s: M Result Comment: Delt a check [id number] Normal Fasting; 100-125 Impaired Fasting; greaterthan 126 on more than one result- Diabetes. ADA guidelines.Results may be falsely elevated after the administration ofSulfapyridine.Results may be falsely depressed after the administration ofSulfasalazine. Performed By: #### L 500.24370, L500.51143 ####[facility] FGXHRBHFFU4222 [place], [place] [address]Yr# [phone] Potassium [Moles/Vol] 3.8 mmol/L Normal 3.5-5.1 [facility] Comment on above: Order Comment: Campu s: M Performed By: #### L 500.03953, L500.75775 ####[facility] LNDZPUQWPF8637 [place], [place] [address]Wp# [phone] Sodium [Moles/Vol] 141 mmol/L Normal 136-145 [facility] Comment on above: Order Comment: Campu s: M Performed By: #### L 500.00663, L5.10796 ####[facility] EWWKFNBZID5591 [place], [place] [address]Rz# [phone] Urea nitrogen [Mass/Vol] 9 mg/dL Normal 7-26 [facility] Comment on above: Order Comment: Campu s: M Performed By: #### L 500.59986, L500.10648 ####[facility] YZLGZWBNLR4921 [place], [place] [address]Ah# [phone] Urea nitrogen/Creatinine [Mass ratio] 14 mg/mg Low 15-24 [facility] Comment on above: Order Comment: Campu s: M Performed By: #### L 500.73225, L500.33355 ####[facility] [address]IRMBMAYRD[address] [place] [address] 38696Yc# [phone] DISCH.SUMon 12-30-2021 DISCH.SUM Normal [facility] GFR ESTon 12-30-2021 IF AMER Greater than 60 Normal [facility] Comment on above: Order Comment: Campu s: M Performed By: #### L 500.35192, L500.81720 ####[facility] ZMVGNDQYFV0960 [place], [place] [address]Ne# [phone] IF non-AFR AMER Greater than 60 Normal [facility] Comment on above: Order Comment: Campu s: M Performed By: #### L 500.13992, L500.58497 ####[facility] YMVLCOXFNO2527 [place], [place] [address]Ur# [phone] GLUCOSE METERon 12-30-2021 Glucose [Mass/Vol] 141 mg/dL High 70-115 [facility] [place] Glucose [Mass/Vol] 184 mg/dL High 70-115 [facility] [place] Glucose [Mass/Vol] 269 mg/dL High 70-115 [facility] HGB A1C GLYCOHBon 12-30-2021 HbA1c (Bld) [Mass fraction] 6.2 % High 4.3-6.0 [facility] Comment on above: Order Comment: Campu s: M Performed By: #### L 550.30659 ####[facility] RUBOOKNFMF3063 [place], [place] [address]Ez# [phone] BMPon 12-29-2021 Anion gap [Moles/Vol] 7 mmol/L Normal 5-16 [facility] Comment on above: Order Comment: Campu s: M Performed By: #### L 500.55513, L500.23713 ####[facility] QOZMDGBTIU0868 [place], [place] [address]Zx# [phone] Calcium [Mass/Vol] 7.1 mg/dL Low 8.5-10.5 [facility] Comment on above: Order Comment: Campu s: M Result Comment: NOTE NEW NORMAL RANGE DUE TO REAGENT CHANGE Performed By: #### L 500.20674, L500.37276 ####[facility] OHDMSDBOGO5070 [place], [place] [address]Zy# [phone] Chloride [Moles/Vol] 114 mmol/L High 98-107 [facility] Comment on above: Order Comment: Campu s: M Performed By: #### L 500.68108, L500.03997 ####[facility] BHCBMTEEOU8302 [place], [place] [address]Ck# [phone] CO2 [Moles/Vol] 22.0 mmol/L Normal 21-32 [facility] Comment on above: Order Comment: Campu s: M Performed By: #### L 500.58050, L500.64507 ####[facility] XSUEVXOZZI0882 [place], [place] [address]Fq# [phone] Creatinine [Mass/Vol] 0.52 mg/dL Normal 0.510-0.950 [facility] [place] Comment on above: Order Comment: Benjiu s: M Result Comment: Cleopatra ents receiving either N-Acetylcysteine (NAC) orMetamizole prior to venipuncture, may have falsely depressedresults. Performed By: #### L 500.39850, L500.94777 ####[facility] EJDLBJGGHK5720 [place], [place] [address]Kt# [phone] Glucose [Mass/Vol] 94 mg/dL Normal 70-100 [facility] Comment on above: Order Comment: Campu s: M Result Comment: 70-1 00- Normal Fasting; 100-125 Impaired Fasting; greaterthan 126 on more than one result- Diabetes. ADA guidelines.Results may be falsely elevated after the administration ofSulfapyridine.Results may be falsely depressed after the administration ofSulfasalazine. Performed By: #### L 500.63199, L500.60632 ####[facility] BCWTNAZUHX0322 [place], [place] [address]Gi# [phone] Potassium [Moles/Vol] 3.2 mmol/L Low 3.5-5.1 [facility] Comment on above: Order Comment: Benjiu s: M Result Comment: Slig ht Hemolysis, Result may be affected. Performed By: #### L 500.02765, L500.01010 ####[facility] F[address]ZJEADRG[address] [place] [address] 584[address]Ak# [phone] Sodium [Moles/Vol] 143 mmol/L Normal 136-145 [facility] Comment on above: Order Comment: Benjiu s: M Result Comment: Delt a check reviewed Performed By: #### L 500.69168, L500.67599 ####[facility] OUQUVXFLGN7199 [place], [place] [address]Gv# [phone] Urea nitrogen [Mass/Vol] 6 mg/dL Low 7-26 [facility] Comment on above: Order Comment: Benjiu s: M Performed By: #### L 500.88784, L500.91855 ####[facility] EVGBUOVCGN3117 [place], [place] [address]Gd# [phone] Urea nitrogen/Creatinine [Mass ratio] 11 mg/mg Low 15-24 [facility] [place] Comment on above: Order Comment: Campu s: M Performed By: #### L 500.42633, L500.06114 ####[facility] BMXZQJVDVL9775 [place], [place] [address]Vj# [phone] CBC W/DIFFon 12-29-2021 BASO ABS 0.00 K/CU MM Normal 0-0.2 [facility] [place] Comment on above: Order Comment: Campu s: M Performed By: #### L 200.91275 ####[facility] MARUGXMZHA[address] [place], [place] [address]Ph# [phone] Basophils/100 WBC (Bld) 0.3 % Normal 0-2 [facility] [place] Comment on above: Order Comment: Campu s: M Performed By: #### L 200.21538 ####[facility] CSGMOJPUJS0655[address] [place] [address] 54[address]Ib# [phone] EOS ABS 0.00 K/CU MM Normal 0-0.5 [facility] [place] Comment on above: Order Comment: Campu s: M Performed By: #### L 200.31618 ####[facility] XIZZHMHPUD7[address] [place] [address] 359[address]Hl# [phone] Eosinophils/100 WBC (Bld) 0.2 % Normal 0-5 [facility] [place] Comment on above: Order Comment: Campu s: M Performed By: #### L 200.02965 ####[facility] LASBVERGZE[address] [place] [address] 78[address]Ng# [phone] Erythrocyte distribution width (RBC) [Ratio] 13.5 % Normal 11-14.5 [facility] [place] Comment on above: Order Comment: Campu s: M Performed By: #### L 200.91121 ####[facility] WHCSGDOJXZ[address]68[address] [place] [address] 208[address]Lw# [phone] Hematocrit (Bld) [Volume fraction] 34.3 % Low 35.0-47.0 [facility] Comment on above: Order Comment: Campu s: M Performed By: #### L 200.05765 ####[facility] YAXFGDCDRU[address] [place] [address] 785[address]Wj# [phone] Hemoglobin (Bld) [Mass/Vol] 11.5 g/dL Normal 11.5-15.5 [facility] Comment on above: Order Comment: Campu s: M Performed By: #### L 200.61384 ####[place] [address]Ph# [phone] IMMATR GRAN ABS 0.20 K/CU MM Normal Less than 2 [facility] Comment on above: Order Comment: Campu s: M Performed By: #### L 200.41874 ####[place] [address]39[address]Ph# [phone] IMMATURE GRAN % 1.8 % Normal Less than 2 [facility] [place] Comment on above: Order Comment: Campu s: M Performed By: #### L 200.28175 ####[facility] SXSSATGPXA[address] [place], [place] [address]Ph# [phone] LYMPH ABS 3.60 K/CU MM Normal 0.9-4.4 [facility] Comment on above: Order Comment: Campu s: M Performed By: #### L 200.11335 ####[facility] BLLYRUQVVM[address] [place], [place] [address]Ph# [phone] Lymphocytes/100 WBC (Bld) 29.4 % Normal 20-40 [facility] Comment on above: Order Comment: Campu s: M Performed By: #### L 200.25740 ####[facility] PONSEJRQJI[address] [place] [address] 25658Fs# [phone] MCHC (RBC) [Mass/Vol] 33.5 g/dL Normal 32.0-36.0 [facility] Comment on above: Order Comment: Campu s: M Performed By: #### L 200.85691 ####[facility] LPLQPWGAHH2950 [place], [place] [address]Wa# [phone] MCV (RBC) [Entitic vol] 86.2 fL Normal 80.0-99.0 [facility] Comment on above: Order Comment: Campu s: M Performed By: #### L 200.65257 ####[facility] HKRANMXRYE[address] [place] [address] 27[address]Vc# [phone] MONO ABS 0.80 K/CU MM Normal 0.1-1.1 [facility] Comment on above: Order Comment: Campu s: M Performed By: #### L 200.97269 ####[place] [address]Ph# [phone] Monocytes/100 WBC (Bld) 6.7 % Normal 2-10 [facility] Comment on above: Order Comment: Campu s: M Performed By: #### L 200.19539 ####[facility] [address]YJRXV[address] [place], [place] [address]Ph# [phone] NEUTROPHIL ABS 7.60 K/CU MM Normal 2.0-8.3 [facility] Comment on above: Order Comment: Campu s: M Performed By: #### L 200.17179 ####[address] [address]Ro# [phone] Neutrophils/100 WBC (Bld) 61.6 % Normal 45-75 [facility] Comment on above: Order Comment: Campu s: M Performed By: #### L 200.46270 ####[facility] UEBCHPQGCF[address] [place] [address] 415[address]Ju# [phone] Nucleated RBC/100 WBC (Bld) [Ratio] 0.0 % Normal Less than 1 [facility] Comment on above: Order Comment: Campu s: M Performed By: #### L 200.76729 ####[facility] PSOZYWPGNO[address] [place], [place] [address]Ph# [phone] Platelet mean volume (Bld) [Entitic vol] 11.7 fL Normal 9.4-12.4 [facility] Comment on above: Order Comment: Campu s: M Performed By: #### L 200.85546 ####[facility] OVKJSVAUTQ7663 [place], [place] [address]Ct# [phone] PLT 167 K/CU MM Normal 150-450 [facility] Comment on above: Order Comment: Campu s: M Performed By: #### L 200.69109 ####[facility] [address]GFONXNFG[address] [place] [address] 246[address]Xr# [phone] RBC 3.98 M/CU MM Normal 3.90-5.30 [facility] Comment on above: Order Comment: Campu s: M Performed By: #### L 200.86042 ####[facility] TTPOFYRBEX[address] [place] [address]49[address]Fa# [phone] WBC 12.4 K/CUMM High 4.5-11.0 [facility] Comment on above: Order Comment: Campu s: M Performed By: #### L 200.10731 ####[facility] WRYIPNCVWS[address] [place] [address]33[address]Dc# [phone] GFR ESTon 12-29-2021 IF AMER Greater than 60 [facility] Comment [facility] above: Order Comment: Campu s: M Performed By: #### L 500.61883, L500.34154 ####[facility] OGCDMXXOFX[address] [place] [address] 918[address]Pw# [phone] IF non-AFR AMER Greater than 60 Normal [facility] [place] Comment on above: Order Comment: Campu s: M Performed By: #### L 500.34120, L500.71658 ####[facility] KEYFGNERQB566[address] [place] [address] 495[address]Io# [phone] GLUCOSE METERon 12-29-2021 Glucose [Mass/Vol] 266 mg/dL High 70-115 [facility] [place] Glucose [Mass/Vol] 109 mg/dL Normal 70-115 [facility] Glucose [Mass/Vol] 67 mg/dL Low 70-115 [facility] Glucose [Mass/Vol] 49 mg/dL Critically low 70-115 [facility] [place] Glucose [Mass/Vol] 63 mg/dL Low 70-115 [facility] Glucose [Mass/Vol] 98 mg/dL Normal 70-115 [facility] PR[facility] IMSon 12-29-2021 PROG IMS Normal [facility] Progress Note-Hospitalist Normal [facility] ADM.INTERVon 12-28-2021 ADM.INTERV Normal [facility] Admission Interval Note Normal [facility] BETA-HYDRO BUTon 12-28-2021 BETA-HYDRO BUT 4.79 MMOL/L High 0.02-0.27 [facility] Comment on above: Order Comment: Campu s: M Result Comment: Bloo d ketone levels will vary depending on several factors(for example, food intake, alcohol intake and conditionssuch as ketoacidosis). Patients should be fasting 12 hoursprior to collection.PATIENT SAMPLES WITH HIGH LEVELS OF M-PROTEIN (I.E.GAMMOPATHY) MAY AFFECT THE ACCURACY OF THIS ASSAY. Performed By: #### L 500.87155, L500.07531, L500.39361 ####[facility] OIZIFWTZWX6305 [place], [place] [address]Ad# [phone] BMPon 12-28-2021 Anion gap [Moles/Vol] 13 mmol/L Normal 5-16 [facility] Comment on above: Order Comment: Campu s: M Performed By: #### L 500.17259, L500.15826, L500.65974 ####[facility] AQINEGIJSN9701 [place], [place] [address]Eq# [phone] Calcium [Mass/Vol] 8.9 mg/dL Normal 8.5-10.5 [facility] Comment on above: Order Comment: Campu s: M Result Comment: NOTE NEW NORMAL RANGE DUE TO REAGENT CHANGE Performed By: #### L 500.71297, L500.75146, L500.24032 ####[facility] SQUNVNDHWY4619 [place], [place] [address]By# [phone] Chloride [Moles/Vol] 105 mmol/L Normal 98-107 [facility] [place] Comment on above: Order Comment: Zach s: M Performed By: #### L 500.66693, L500.25115, L500.79757 ####[facility] GJCHXSFJIW9401 [place], [place] [address]Wn# [phone] CO2 [Moles/Vol] 18.0 mmol/L Low 21-32 [facility] Comment on above: Order Comment: Zach s: M Performed By: #### L 500.62467, L500.29785, L500.60731 ####[facility] TMTKJVPFGI4041 [place], [place] [address]Yu# [phone] Creatinine [Mass/Vol] 0.61 mg/dL Normal 0.510-0.950 [facility] [place] Comment on above: Order Comment: Zach s: M Result Comment: Cleopatra ents receiving either N-Acetylcysteine (NAC) orMetamizole prior to venipuncture, may have falsely depressedresults. Performed By: #### L 500.63422, L500.89863, L500.53208 ####[facility] BNEENRTKGE2307 [place], [place] [address]Zf# [phone] Glucose [Mass/Vol] 80 mg/dL Normal 70-100 [facility] Comment on above: Order Comment: Zach s: M Result Comment: 70-1 00- Normal Fasting; 100-125 Impaired Fasting; greaterthan 126 on more than one result- Diabetes. ADA guidelines.Results may be falsely elevated after the administration ofSulfapyridine.Results may be falsely depressed after the administration ofSulfasalazine. Performed By: #### L 500.00039, L500.84640, L500.53194 ####[facility] AMKJYUHECN4202 [place], [place] [address]Ve# [phone] Potassium [Moles/Vol] 2.9 mmol/L Critically low 3.5-5.1 [facility] Comment on above: Order Comment: Zach s: M Result Comment: Slig ht Hemolysis, Result may be affected.Critical Result(s)Called at: 19:38:48 on 12/28/2021 by lls. Called to vinh back by: DR MORLEY Performed By: #### L 500.81560, L500.01345, L500.47947 ####[facility] ATIZFWEAJA8873 [place], [place] [address]Mp# [phone] Sodium [Moles/Vol] 136 mmol/L Normal 136-145 [facility] Comment on above: Order Comment: Campu s: M Performed By: #### L 500.99620, L500.56544, L500.86330 ####[facility] OXCMXXDQIH7191 [place], [place] [address]Lx# [phone] Urea nitrogen [Mass/Vol] 11 mg/dL Normal 7-26 [facility] Comment on above: Order Comment: Campu s: M Performed By: #### L 500.24900, L500.69360, L500.50041 ####[facility] QKQAZCMPHU5189 [place], [place] [address]Iy# [phone] Urea nitrogen/Creatinine [Mass ratio] 18 mg/mg Normal 15-24 [facility] Comment on above: Order Comment: Campu s: M Performed By: #### L 500.71857, L500.44308, L500.90126 ####[facility] SBRFZQQWTL4681 [place], [place] [address]Iq# [phone] Stacie 12-28-2021 EMERGENCY PHYSICIAN REPORT This is a preliminary report only, as the practitioner review and authentication has not occurred. Normal [facility] ER Normal [facility] GFR ESTon 12-28-2021 IF AMER Greater than 60 Normal [facility] Comment on above: Order Comment: Campu s: M Performed By: #### L 500.07435, L500.93705, L500.25019 ####[facility] SDCIMITTIE0131 [place], [place] [address]Dl# [phone] IF non-AFR AMER Greater than 60 [facility] Comment [facility] above: Order Comment: Campu s: M Performed By: #### L 500.05117, L500.69677, L500.16810 ####[facility] VNLTYHBQSJ1033 [place], [place] [address]Ic# [phone] VBG PANELon 12-28-2021 BASE EXCESS -4.6 MMOL/L Low 0-2 [facility] Comment on above: Order Comment: Campu s: M Performed By: #### L 100.64792 ####[facility] CJIIZBFNCH2882 [place], [place] [address]El# [phone] Body temperature 98.6 [degF] Normal [facility] Comment on above: Order Comment: Campu s: M Performed By: #### L 100.91146 ####[facility] [address]ZRFMFUHC[address] [place] [address]Yw# [phone] EQUIPMENT UNKNOWN [facility] Comment on above: Order Comment: Campu s: M Performed By: #### L 100.82849 ####[facility] OCPWANWANK8007 [place], [place] [address]Oy# [phone] HCO3 (Bld) [Moles/Vol] 17.6 mmol/L Low 22-26 M [facility] Comment on above: Order Comment: Campu s: M Performed By: #### L 100.68758 ####[facility] SEPCAQGNMU3305 [place], [place] [address]Ko# [phone] Hemoglobin (Bld) [Mass/Vol] 13.9 g/dL Low 16.0-22.0 [facility] Comment on above: Order Comment: Campu s: M Performed By: #### L 100.04071 ####[facility] SPZOQYSGPL[address] [place] [address]Lh# [phone] SAMPLE SITE UNKNOWN [facility] Comment on above: Order Comment: Campu s: M Performed By: #### L 100.88504 ####[facility] ODOKIBFKST[address] [place] [address]Gu# [phone] SAMPLE TYPE VENOUS [facility] Comment on above: Order Comment: Campu s: M Performed By: #### L 100.80044 ####[facility] [id number] [place], [place] [address]Cm# [phone] VBG CARBOXYHGB 1.5 % Normal 0-10 [facility] Comment on above: Order Comment: Campu s: M Performed By: #### L 100.90921 ####[facility] [id number] [place] [address]Rl# [phone] VBG METHGB 0.3 % Low 0.4-1.5 [facility] Comment on above: Order Comment: Campu s: M Performed By: #### L 100.99741 ####[facility] [id number] [place] [address]Jl# [phone] VBG O2 CAPACITY 19.0 VOL% Normal [facility] Comment on above: Order Comment: Campu s: M Performed By: #### L 100.28037 ####[facility] [id number] [place] [address]Xg# [phone] VBG O2 HG SATUR 88.4 % High 40-70 [facility] Comment on above: Order Comment: Campu s: M Performed By: #### L 100.33068 ####[facility] [id number] [place], [place] [address]Rd# [phone] VBG PCO2 25.6 MMHG Critically low 40-50 [facility] Comment on above: Order Comment: Campu s: M Result Comment: VALU E IS OUTSIDE OF THE VERIFIED RANGES OF THIS ANALYZER.ADAM CHOE. PCO2 25.6 MMHG Performed By: #### L 100.40433 ####[facility] [id number] [place], [place] [address]Zr# [phone] VBG PH 7.46 [facility] 7.31-7.41 [facility] Comment on above: Order Comment: Campu s: M Performed By: #### L 100.88831 ####[facility] [id number] [place], [place] [address]Ro# [phone] VBG PO2 54.3 MMHG High 35-45 [facility] Comment on above: Order Comment: Campu s: M Performed By: #### L 100.69397 ####[facility] [id number] [place], [place] [address]Ig# [phone] BETA-HYDRO BUTon 12-27-2021 BETA-HYDRO BUT 3.29 MMOL/L High 0.02-0.27 [facility] Comment on above: Order Comment: Campu s: M Result Comment: Bloo d ketone levels will vary depending on several factors(for example, food intake, alcohol intake and conditionssuch as ketoacidosis). Patients should be fasting 12 hoursprior to collection.PATIENT SAMPLES WITH HIGH LEVELS OF M-PROTEIN (I.E.GAMMOPATHY) MAY AFFECT THE ACCURACY OF THIS ASSAY. Performed By: #### L 500.57388 ####[facility] [id number] [place], [place] [address]Gk# [phone] BMPon 12-27-2021 Anion gap [Moles/Vol] 15 mmol/L Normal 5-16 [facility] Comment on above: Order Comment: Campu s: M Performed By: #### L 500.57628, L500.35386, L500.22757 ####[facility] JGWRSCNFGY5877 [place], [place] [address]Jx# [phone] Calcium [Mass/Vol] 9.2 mg/dL Normal 8.5-10.5 [facility] Comment on above: Order Comment: Campu s: M Result Comment: NOTE NEW NORMAL RANGE DUE TO REAGENT CHANGE Performed By: #### L 500.68868, L500.01132, L500.51030 ####[facility] JWFMAMANZK3584 [place], [place] [address]Yg# [phone] Chloride [Moles/Vol] 107 mmol/L Normal 98-107 [facility] Comment on above: Order Comment: Campu s: M Performed By: #### L 500.70445, L500.65961, L500.49807 ####[facility] MBUOQEDGIW1770 [place], [place] [address]Eb# [phone] CO2 [Moles/Vol] 18.0 mmol/L Low 21-32 [facility] [place] Comment on above: Order Comment: Zach s: M Performed By: #### L 500.32947, L500.22715, L500.76160 ####[facility] KJVTDVBNXX7602 [place], [place] [address]Xw# [phone] Creatinine [Mass/Vol] 0.67 mg/dL Normal 0.510-0.950 [facility] Comment on above: Order Comment: Benjiu s: M Result Comment: Cleopatra ents receiving either N-Acetylcysteine (NAC) orMetamizole prior to venipuncture, may have falsely depressedresults. Performed By: #### L 500.17337, L500.97814, L500.13733 ####[facility] GFRKHYCBXF2204 [place], [place] [address]Mb# [phone] Glucose [Mass/Vol] 118 mg/dL High 70-100 [facility] Comment on above: Order Comment: Benjiu s: M Result Comment: 70-1 00- Normal Fasting; 100-125 Impaired Fasting; greaterthan 126 on more than one result- Diabetes. ADA guidelines.Results may be falsely elevated after the administration ofSulfapyridine.Results may be falsely depressed after the administration ofSulfasalazine. Performed By: #### L 500.73966, L500.87255, L500.49413 ####[facility] IJUUTLLQAE1224 [place], [place] [address]Tx# [phone] Potassium [Moles/Vol] 3.3 mmol/L Low 3.5-5.1 [facility] Comment on above: Order Comment: Zach s: M Performed By: #### L 500.53184, L500.99163, L500.21418 ####[facility] UMUONSILWM8063 [place], [place] [address]Xr# [phone] Sodium [Moles/Vol] 140 mmol/L Normal 136-145 [facility] [place] Comment on above: Order Comment: Campu s: M Performed By: #### L 500.55273, L500.15815, L500.15489 ####[facility] NDEXPKLFRX4062 [place], [place] [address]Tp# [phone] Urea nitrogen [Mass/Vol] 14 mg/dL Normal 7-26 [facility] [place] Comment on above: Order Comment: Campu s: M Performed By: #### L 500.11022, L500.56202, L500.54433 ####[facility] IGZVVBHSXJ7061 [place], [place] [address]Pm# [phone] Urea nitrogen/Creatinine [Mass ratio] 21 mg/mg Normal 15-24 [facility] Comment on above: Order Comment: Campu s: M Performed By: #### L 500.08920, L500.89681, L500.74449 ####[facility] XKKAOAFTEM5738 [place], [place] [address]Bu# [phone] CBC W/DIFFon 12-27-2021 BASO ABS 0.00 K/CU MM Normal 0-0.2 [facility] Comment on above: Order Comment: Campu s: M Performed By: #### L 200.77806 ####[facility] TEEFKSGDOH[address] [place] [address]Bo# [phone] Basophils/100 WBC (Bld) 0.3 % Normal 0-2 [facility] [place] Comment on above: Order Comment: Campu s: M Performed By: #### L 200.84505 ####[facility] ATWBXJCXRA995[address] [place] [address]Kv# [phone] EOS ABS 0.00 K/CU MM Normal 0-0.5 [facility] Comment on above: Order Comment: Campu s: M Performed By: #### L 200.84377 ####[facility] APAZBBNNQC04[address] [place] [address]Kt# [phone] Eosinophils/100 WBC (Bld) 0.0 % Normal 0-5 [facility] Comment on above: Order Comment: Campu s: M Performed By: #### L 200.88370 ####[facility] QPYDMXVWLR9479 [place], [place] [address]Kq# [phone] Erythrocyte distribution width (RBC) [Ratio] 13.8 % Normal 11-14.5 [facility] Comment on above: Order Comment: Campu s: M Performed By: #### L 200.00223 ####[facility] [id number] [place], [place] [address]Ph# [phone] Hematocrit (Bld) [Volume fraction] 36.4 % Normal 35.0-47.0 [facility] Comment on above: Order Comment: Campu s: M Performed By: #### L 200.81966 ####[place] [address]Ph# [phone] Hemoglobin (Bld) [Mass/Vol] 12.1 g/dL Normal 11.5-15.5 [facility] Comment on above: Order Comment: Campu s: M Performed By: #### L 200.16592 ####[facility] [address]LNCWNZYO[address] [place], [place] [address]Ph# [phone] IMMATR GRAN ABS 0.30 K/CU MM Normal Less than 2 [facility] Comment on above: Order Comment: Campu s: M Performed By: #### L 200.06424 ####[facility] [id number] [place], [place] [address]Ph# [phone] IMMATURE GRAN % 1.8 % Normal Less than 2 [facility] Comment on above: Order Comment: Campu s: M Performed By: #### L 200.68725 ####[facility] [id number] [place], [place] [address]Ph# [phone] LYMPH ABS 1.30 K/CU MM Normal 0.9-4.4 [facility] Comment on above: Order Comment: Campu s: M Performed By: #### L 200.63337 ####[facility] WSNWGDLAED5614 [place], [place] [address]Ca# [phone] Lymphocytes/100 WBC (Bld) 9.4 % Low 20-40 [facility] Comment on above: Order Comment: Campu s: M Performed By: #### L 200.39309 ####[address] [address]Kf# [phone] MCHC (RBC) [Mass/Vol] 33.2 g/dL Normal 32.0-36.0 [facility] Comment on above: Order Comment: Campu s: M Performed By: #### L 200.63964 ####[address] [address]Mr# [phone] MCV (RBC) [Entitic vol] 85.4 fL Normal 80.0-99.0 [facility] Comment on above: Order Comment: Campu s: M Performed By: #### L 200.26406 ####[address] [address]Ta# [phone] MONO ABS 0.60 K/CU MM Normal 0.1-1.1 [facility] Comment on above: Order Comment: Campu s: M Performed By: #### L 200.21013 ####[address] [address]Bb# [phone] Monocytes/100 WBC (Bld) 4.1 % Normal 2-10 [facility] Comment on above: Order Comment: Campu s: M Performed By: #### L 200.47387 ####[facility] [id number] [place] [address]Dg# [phone] NEUTROPHIL ABS 11.70 K/CU MM High 2.0-8.3 [facility] Comment on above: Order Comment: Campu s: M Performed By: #### L 200.23224 ####[facility] [id number] [place], [place] [address]Ph# [phone] Neutrophils/100 WBC (Bld) 84.4 % High 45-75 [facility] Comment on above: Order Comment: Campu s: M Performed By: #### L 200.31460 ####[facility] BVQJCHDOMF2289 [place], [place] [address]Wy# [phone] Nucleated RBC/100 WBC (Bld) [Ratio] 0.0 % Normal Less than 1 [facility] Comment on above: Order Comment: Campu s: M Performed By: #### L 200.12739 ####[facility] VQLRINCRLM3913 [place], [place] [address]Xi# [phone] Platelet mean volume (Bld) [Entitic vol] 12.1 fL Normal 9.4-12.4 [facility] Comment on above: Order Comment: Campu s: M Performed By: #### L 200.33821 ####[facility] AJYVIFEOXR0059 [place], [place] [address]Qw# [phone] PLT 184 K/CU MM Normal 150-450 [facility] Comment on above: Order Comment: Campu s: M Performed By: #### L 200.68857 ####[facility] FVFKSKYEVG8363 [place], [place] [address]Fe# [phone] RBC 4.26 M/CU MM Normal 3.90-5.30 [facility] Comment on above: Order Comment: Campu s: M Performed By: #### L 200.57433 ####[facility] JGGFSEXDVI0212 [place], [place] [address]Li# [phone] WBC 13.9 K/CUMM High 4.5-11.0 [facility] Comment on above: Order Comment: Campu s: M Performed By: #### L 200.48594 ####[facility] WZMAYXOHFT5328 [place], [place] [address]Zv# [phone] Stacie 12-27-2021 EMERGENCY PHYSICIAN REPORT This is a preliminary report only, as the practitioner review and authentication has not occurred. Normal [facility] ER Normal [facility] GFR ESTon 12-27-2021 IF AMER Greater than 60 Normal [facility] Comment on above: Order Comment: Campu s: M Performed By: #### L 500.12752, L500.07861, L500.66186 ####[facility] DIGFOANJNR1495 [place], [place] [address]Bd# [phone] IF non-AFR AMER Greater than 60 Normal [facility] Comment on above: Order Comment: Campu s: M Performed By: #### L 500.90777, L500.29072, L500.58575 ####[facility] NKLELSPGVN8289 [place], [place] [address]Uw# [phone] HCGon 12-27-2021 HCG SER RESULT Negative Normal NEGATIVE [facility] Comment on above: Order Comment: Campu s: M Performed By: #### L 500.81500, L500.85185, L500.64307 ####[facility] [id number] [place] [address]Na# [phone] LACTATE BLOODon 12-27-2021 LACTATE BLOOD 2.43 MMOL/L High 0.40-2.00 [facility] Comment on above: Order Comment: Campu s: M Performed By: #### L 550.35987 ####[facility] COJKKEKCRZ[address] [place] [address]Xr# [phone] LIPASEon 12-27-2021 Lipase [Catalytic activity/Vol] 25 U/L Normal 12-60 [facility] Comment on above: Order Comment: Campu s: M Result Comment: NOTE NEW NORMAL RANGE DUE TO REAGENT CHANGE Performed By: #### L 500.89345, L500.35362 ####[facility] TLBNEJGIGL[address] [place] [address]Ad# [phone] LIVERon 12-27-2021 Albumin [Mass/Vol] 4.2 g/dL Normal 3.2-5.0 [facility] Comment on above: Order Comment: Campu s: M Performed By: #### L 500.11822, L500.25071 ####[facility] FIDFMUFSVC2067 [place], [place] [address]Cp# [phone] Albumin/Globulin [Mass ratio] 1.7 {ratio} Normal 0.8-2.0 [facility] Comment on above: Order Comment: Campu s: M Performed By: #### L 500.14510, L500.72900 ####[facility] YXADYELZDU4977 [place], [place] [address]Qw# [phone] ALK PHOS 87 U/L Normal 45-117 [facility] Comment on above: Order Comment: Campu s: M Performed By: #### L 500.30519, L500.88779 ####[facility] LJJYHJELZL0375 [place], [place] [address]Xq# [phone] ALT [Catalytic activity/Vol] 13 U/L Normal 13-61 [facility] Comment on above: Order Comment: Campu s: M Result Comment: RESU LTS MAY BE FALSELY DEPRESSED AFTER THE ADMINISTRATION OFSULFASALAZINE AND/OR SULFAPYRIDINE. Performed By: #### L 500.28907, L500.51675 ####[facility] YYMJROVSSK6982 [place], [place] [address]Eq# [phone] AST [Catalytic activity/Vol] 23 U/L Normal 8-34 [facility] Comment on above: Order Comment: Campu s: M Result Comment: RESU LTS MAY BE FALSELY DEPRESSED AFTER THE ADMINISTRATION OFSULFASALAZINE AND/OR SULFAPYRIDINE. Performed By: #### L 500.50083, L500.24662 ####[facility] OCZVFVOHWR0553 [place], [place] [address]Ye# [phone] BILI DIRECT 0.3 MG/DL Normal 0.00-0.36 [facility] Comment on above: Order Comment: Campu s: M Result Comment: NOTE NEW NORMAL RANGE DUE TO REAGENT CHANGE Performed By: #### L 500.46188, L500.74779 ####[facility] OBHXKMAGGL4289 [place], [place] [address]Rn# [phone] BILI TOTAL 0.90 MG/DL Normal 0.2-1.0 [facility] [place] Comment on above: Order Comment: Campu s: M Performed By: #### L 500.78177, L500.79084 ####[facility] KPYSYGKCPY7538 [place], [place] [address]Vt# [phone] Globulin (S) [Mass/Vol] 2.5 g/dL Normal 2.2-4.2 [facility] Comment on above: Order Comment: Campu s: M Performed By: #### L 500.71006, L500.55812 ####[place] [address] [place], [place] [address]Et# [phone] Protein [Mass/Vol] 6.7 g/dL Normal 6.0-8.5 [facility] Comment on above: Order Comment: Campu s: M Performed By: #### L 500.23535, L500.89101 ####[facility] FJQUUZGTCX6707 [place], [place] [address]Pw# [phone] [id number] 12-27-2021 SARS-CoV-2 (COVID-19) RNA DANIEL+probe Ql (Unsp spec) Negative Invalid Interpretation Code Negative [facility] Comment on above: Order Comment: Campu [...] performed by PCR. Performed By: #### L 770.18107 ####[facility] IDEMVDREUH1006 [place], [place] [address]Sv# [phone] UA COMPLETEon 12-27-2021 Color (U) Yellow Normal [facility] Comment on above: Order Comment: Campu s: M Performed By: #### L 600.55062 ####[facility] KKEGSFPEQV9962 [place], [place] [address]Ns# [phone] Glucose (U) [Mass/Vol] Negative Normal NORMAL [facility] [place] Comment on above: Order Comment: Campu s: M Performed By: #### L 600.26061 ####[facility] XERGTOSTZO[address] [place] [address]Yv# [phone] UA APPEARANCE Clear Normal CLEAR [facility] Comment on above: Order Comment: Campu s: M Performed By: #### L 600.06063 ####[facility] [id number] [place] [address]Tl# [phone] UA BILIRUBIN Negative Normal NEGATIVE [facility] Comment on above: Order Comment: Campu s: M Performed By: #### L 600.91720 ####[facility] [id number] [place] [address]Hz# [phone] UA BLOOD Negative Normal NEGATIVE [facility] Comment on above: Order Comment: Campu s: M Performed By: #### L 600.26178 ####[facility] [id number] [place] [address]Uo# [phone] UA KETONE 80 Normal NEGATIVE [facility] Comment on above: Order Comment: Campu s: M Performed By: #### L 600.14264 ####[facility] XQEZDJYDIP68[address] [place] [address]Eh# [phone] UA LK ESTERASE Negative Normal NEGATIVE [facility] Comment on above: Order Comment: Campu s: M Performed By: #### L 600.54514 ####[facility] [id number] [place] [address]Gw# [phone] UA NITRITE Negative Normal NEGATIVE [facility] Comment on above: Order Comment: Campu s: M Performed By: #### L 600.79275 ####[facility] [id number] [place] [address]Je# [phone] UA PH 6.0 Normal 5-6 [facility] Comment on above: Order Comment: Campu s: M Performed By: #### L 600.74886 ####[facility] CESCOFRURD8164 [place], [place] [address]Iu# [phone] UA PROTEIN Negative Normal NEGATIVE [facility] Comment on above: Order Comment: Campu s: M Performed By: #### L 600.78104 ####[facility] RTSIAJBTXE3869 [place], [place] [address]Rn# [phone] UA SPEC GRAV 1.018 Normal 1.005-1.030 [facility] Comment on above: Order Comment: Campu s: M Performed By: #### L 600.69117 ####[facility] FLUEMEJLEJ3483 [place], [place] [address]Hj# [phone] UA UROBILINOGEN 2.0 Normal NORMAL [facility] Comment on above: Order Comment: Campu s: M Performed By: #### L 600.22104 ####[facility] CDJUGPBZEZ1414 [place], [place] [address]Db# [phone] VBG PHon 12-27-2021 VBG PH 7.57 MMHG High 7.31-7.41 [facility] Comment on above: Order Comment: Campu s: M Performed By: #### L 100.06613 ####[facility] DTJCCGSHCH0191 [place], [place] [address]Gz# [phone] Stacie 12-26-2021 EMERGENCY PHYSICIAN REPORT This is a preliminary report only, as the practitioner review and authentication has not occurred. Normal [facility] ER Normal [facility] GLUCOSE METERon 12-26-2021 Glucose [Mass/Vol] 246 mg/dL High 70-115 [facility] Glucose [Mass/Vol] 311 mg/dL High 70-115 [facility] 12-26-2021 PROG.NOTE Normal [facility] Progress Note-Physician Normal [facility] ABDOMEN OR KUBon 12-25-2021 ABDOMEN OR KUB Normal [facility] BETA-HYDRO BUTon 12-25-2021 BETA-HYDRO BUT 2.49 MMOL/L High 0.02-0.27 [facility] Comment on above: Order Comment: Campu s: M Result Comment: Bloo d ketone levels will vary depending on several factors(for example, food intake, alcohol intake and conditionssuch as ketoacidosis). Patients should be fasting 12 hoursprior to collection.PATIENT SAMPLES WITH HIGH LEVELS OF M-PROTEIN (I.E.GAMMOPATHY) MAY AFFECT THE ACCURACY OF THIS ASSAY. Performed By: #### L 500.77813 ####[facility] QVTFWCMVRH7246 [place], [place] [address]Fu# [phone] BMPon 12-25-2021 Anion gap [Moles/Vol] 13 mmol/L Normal 5-16 [facility] Comment on above: Order Comment: Campu s: M Performed By: #### L 500.10619, L500.11632, L500.65070, L500.22337, L500.90549 ####[facility] QFHRMCGJEP2656 [place], [place] [address]Ik# [phone] Calcium [Mass/Vol] 10.0 mg/dL Normal 8.5-10.5 [facility] Comment on above: Order Comment: Campu s: M Result Comment: NOTE NEW NORMAL RANGE DUE TO REAGENT CHANGE Performed By: #### L 500.60392, L500.74737, L500.79980, L500.28521, L500.28125 ####[facility] TAWUIWFRNG2325 [place], [place] [address]Lc# [phone] Chloride [Moles/Vol] 107 mmol/L Normal 98-107 [facility] Comment [facility]: Order Comment: Campu s: M Performed By: #### L 500.80094, L500.59472, L500.96703, L500.81122, L500.66695 ####[facility] SDJKXAUEPF1660 [place], [place] [address]Kw# [phone] CO2 [Moles/Vol] 17.0 mmol/L Low 21-32 [facility] Comment on above: Order Comment: Campu s: M Performed By: #### L 500.68032, L500.99953, L500.37896, L500.26374, L500.12783 ####[facility] HRIOROKSCP7432 [place], [place] [address]Bs# [phone] Creatinine [Mass/Vol] 0.66 mg/dL Normal 0.510-0.950 [facility] Comment on above: Order Comment: Benjiu s: M Result Comment: Cleopatra ents receiving either N-Acetylcysteine (NAC) orMetamizole prior to venipuncture, may have falsely depressedresults. Performed By: #### L 500.93621, L500.77530, L500.01056, L500.08588, L500.43232 ####[facility] TBLOLSTMAF4243 [place], [place] [address]Eh# [phone] Glucose [Mass/Vol] 359 mg/dL High 70-100 [facility] Comment on above: Order Comment: Benjiu s: M Result Comment: 70-1 00- Normal Fasting; 100-125 Impaired Fasting; greaterthan 126 on more than one result- Diabetes. ADA guidelines.Results may be falsely elevated after the administration ofSulfapyridine.Results may be falsely depressed after the administration ofSulfasalazine. Performed By: #### L 500.58253, L500.05112, L500.75920, L500.62156, L500.47117 ####[facility] BBELZAFEZG1892 [place], [place] [address]Rs# [phone] Potassium [Moles/Vol] 4.1 mmol/L Normal 3.5-5.1 [facility] Comment on above: Order Comment: Zach s: M Performed By: #### L 500.33604, L500.09699, L500.07481, L500.17013, L500.10072 ####[facility] WIVPIEPUZG4464 [place], [place] [address]Ix# [phone] Sodium [Moles/Vol] 137 mmol/L Normal 136-145 [facility] Comment on above: Order Comment: Zach s: M Performed By: #### L 500.07942, L500.77458, L500.75493, L500.79594, L500.20993 ####[facility] ZQHMNZRKEU9556 [place], [place] [address]Vt# [phone] Urea nitrogen [Mass/Vol] 17 mg/dL Normal 7- [facility] [place] Comment on above: Order Comment: Campu s: M Performed By: #### L 500.87260, L500.00836, L500.73537, L500.34792, L500.82371 ####[facility] MAUOKXELCT4600 [place], [place] [address]Tb# [phone] Urea nitrogen/Creatinine [Mass ratio] 26 mg/mg High 15-24 [facility] Comment on above: Order Comment: Campu s: M Performed By: #### L 500.55471, L500.70131, L500.44269, L500.94744, L500.85825 ####[facility] [id number] [place] [address]Gk# [phone] CBC W/DIFFon 12-25-2021 BASO ABS 0.00 K/CU MM Normal 0-0.2 [facility] Comment on above: Order Comment: Campu s: M Performed By: #### L 200.85364 ####[facility] [id number] [place] [address]Xi# [phone] Basophils/100 WBC (Bld) 0.2 % Normal 0-2 [facility] Comment on above: Order Comment: Campu s: M Performed By: #### L 200.37532 ####[facility] UTJQVCYNYF[address] [place] [address]Ky# [phone] EOS ABS 0.00 K/CU MM Normal 0-0.5 [facility] Comment on above: Order Comment: Campu s: M Performed By: #### L 200.56289 ####[facility] YPVIPPFWOF[address] [place] [address]Mz# [phone] Eosinophils/100 WBC (Bld) 0.0 % Normal 0-5 [facility] Comment on above: Order Comment: Campu s: M Performed By: #### L 200.78980 ####[facility] TZGECQOCHM1166 [place], [place] [address]Lx# [phone] Erythrocyte distribution width (RBC) [Ratio] 13.4 % Normal 11-14.5 [facility] [place] Comment on above: Order Comment: Campu s: M Performed By: #### L 200.38272 ####[facility] [id number] [place], [place] [id number]# [phone] Hematocrit (Bld) [Volume fraction] 38.3 % Normal 35.0-[facility].0 [facility] Comment [facility]: Order Comment: Campu s: M Performed By: #### L 200.88119 ####[address] [address]Se# [phone] Hemoglobin (Bld) [Mass/Vol] 13.0 g/dL Normal 11.5-15.5 [facility] [place] Comment on above: Order Comment: Campu s: M Performed By: #### L 200.46225 ####[facility] [id number] [place], [place] [id number]# [phone] IMMATR GRAN ABS 0.20 K/CU MM Normal Less than 2 [facility] [place] Comment on above: Order Comment: Campu s: M Performed By: #### L 200.19399 ####[facility] [id number] [place], [place] [address]Ph# [phone] IMMATURE GRAN % 1.0 % Normal Less than 2 [facility] [place] Comment on above: Order Comment: Campu s: M Performed By: #### L 200.43063 ####[facility] [id number] [place] [address]Ib# [phone] LYMPH ABS 0.90 K/CU MM Normal 0.9-4.4 [facility] [place] Comment on above: Order Comment: Campu s: M Performed By: #### L 200.23455 ####[facility] [id number] [place], [place] [address]Ig# [phone] Lymphocytes/100 WBC (Bld) 4.8 % Low 20-[facility] Comment on above: Order Comment: Campu s: M Performed By: #### L 200.45132 ####[facility] [id number] [place] [address]Xx# [phone] MCHC (RBC) [Mass/Vol] 33.9 g/dL Normal 32.0-36.0 [facility] Comment on above: Order Comment: Campu s: M Performed By: #### L 200.91582 ####[place] [id number]# [phone] MCV (RBC) [Entitic vol] 84.2 fL Normal 80.0-99.0 [facility] Comment on above: Order Comment: Campu s: M Performed By: #### L 200.42943 ####[facility] QBNXZGLPTL[address] [place] [address] 17[address]Fj# [phone] MONO ABS 0.50 K/CU MM Normal 0.1-1.1 [facility] Comment on above: Order Comment: Campu s: M Performed By: #### L 200.54592 ####[address] [address]Qv# [phone] Monocytes/100 WBC (Bld) 2.4 % Normal 2-10 [facility] Comment on above: Order Comment: Campu s: M Performed By: #### L 200.21864 ####[facility] K[address]ILSNCNIL[address] [place] [address]Bd# [phone] NEUTROPHIL ABS 17.60 K/CU MM High 2.0-8.3 [facility] Comment on above: Order Comment: Campu s: M Performed By: #### L 200.00218 ####[facility] YOYDWZSFLE[address] [place], [place] [address]Ph# [phone] Neutrophils/100 WBC (Bld) 91.6 % High 45-75 [facility] Comment on above: Order Comment: Campu s: M Performed By: #### L 200.90727 ####[facility] QXYJJOMJHO8801 [place], [place] [address]Ey# [phone] Nucleated RBC/100 WBC (Bld) [Ratio] 0.0 % Normal Less than 1 [facility] Comment on above: Order Comment: Campu s: M Performed By: #### L 200.98577 ####[facility] GIXBSYDIFJ[address] [place] [address]As# [phone] Platelet mean volume (Bld) [Entitic vol] 13.2 fL High 9.4-12.4 [facility] Comment on above: Order Comment: Campu s: M Performed By: #### L 200.79719 ####[facility] ETHKNBZEXQ8533 [place], [place] [address]Ng# [phone] PLT 187 K/CU MM Normal 150-450 [facility] Comment on above: Order Comment: Campu s: M Result Comment: Accu racy questionable due to platelet clumping, actualplatelet count may be higher than the reported value. Performed By: #### L 200.31866 ####[facility] PWKDXCTQMV[address] [place] [address] 238[address]Yr# [phone] PLT EST UNABLE TO QUANTITATE Normal [facility] Comment on above: Order Comment: Campu s: M Performed By: #### L 200.93082 ####[facility] MYSXMMFELA5395 [place], [place] [address]Nz# [phone] POIK 1+ Normal [facility] Comment on above: Order Comment: Campu s: M Performed By: #### L 200.35186 ####[facility] UZVRXQJKZW[address] [place] [address] 11165Qq# [phone] POLY 1+ Normal [facility] Comment on above: Order Comment: Campu s: M Performed By: #### L 200.94058 ####[facility] OENWPMCNGQ[address] [place] [address] 67[address]Fh# [phone] RBC 4.55 M/CU MM Normal 3.90-5.30 [facility] Comment on above: Order Comment: Benjiu s: M Performed By: #### L 200.69513 ####[facility] JDHJLXKUCH6958 [place], [place] [address]Gm# [phone] WBC 19.2 K/CUMM High 4.5-11.0 [facility] Comment on above: Order Comment: Benjiu s: M Performed By: #### L 200.51132 ####[facility] NPYRIKREAM6744 [place], [place] [address]Wu# [phone] CNPDanitza 12-25-2021 CNPN Telephone (FVPRAD) KATHLEEN VILLA ([id number]) 1995 F T Date Time Provider Department 12/25/21 VELIA KAUR During your visit today, we recorded the following information about you: Velia Kaur MD 12/25/2021 12:44 PM Signed 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 She is out of infusion sets for [...] every 6 hours as needed. - lancets ([employer] LANCETS) 30 gauge 10 x daily DX [...] Status:Closed by VELIA KAUR on 12/25/21 Normal [facility] DSon 12-25-2021 DS Normal [facility] GFR ESTon 12-25-2021 IF AMER Greater than 60 Normal [facility] Comment on above: Order Comment: Campu s: M Performed By: #### L 500.13503, L500.08142, L500.53908, L500.17464, L500.94004 ####[facility] BIRFEKHZCV7595 [place], [place] [address]Zj# [phone] IF non-AFR AMER Greater than 60 Normal [facility] Comment on above: Order Comment: Campu s: M Performed By: #### L 500.34600, L500.74316, L500.07252, L500.28319, L500.53471 ####[facility] QAWUFHYQUU1285 [place], [place] [address]Kg# [phone] HCGon 12-25-2021 HCG SER RESULT Negative Normal NEGATIVE [facility] Comment on above: Order Comment: Campu s: M Performed By: #### L 500.02821, L500.93320, L500.24971, L500.16300, L500.33316 ####[facility] NRVPWXDSID6680 [place], [place] [address]Tv# [phone] HP.IMS.ADMon 12-25-2021 Admission-H&P Normal [facility] HP.IMS.ADM Normal [facility] LACTATE BLOODon 12-25-2021 LACTATE BLOOD 3.03 MMOL/L High 0.40-2.00 [facility] Comment on above: Order Comment: Campu s: M Performed By: #### L 550.16887, L100.10055 ####[facility] UZFPMCBQXQ7040 [place], [place] [address]Yg# [phone] LIPASEon 12-25-2021 Lipase [Catalytic activity/Vol] 23 U/L Normal 12-60 [facility] Comment on above: Order Comment: Campu s: M Result Comment: NOTE NEW NORMAL RANGE DUE TO REAGENT CHANGE Performed By: #### L 500.80927, L500.95290, L500.81644, L500.62497, L500.30571 ####[facility] GSXFFVBUHQ7171 [place], [place] [address]Tj# [phone] LIVERon 12-25-2021 Albumin [Mass/Vol] 4.2 g/dL Normal 3.2-5.0 [facility] Comment on above: Order Comment: Campu s: M Performed By: #### L 500.68698, L500.77878, L500.13485, L500.91901, L500.01644 ####[facility] KXSGKRXNES8649 [place], [place] [address]Gn# [phone] Albumin/Globulin [Mass ratio] 1.6 {ratio} Normal 0.8-2.0 [facility] Comment on above: Order Comment: Campu s: M Performed By: #### L 500.67722, L500.97532, L500.66925, L500.47780, L500.12421 ####[facility] NGLTHAAJVF3292 [place], [place] [address]Ek# [phone] ALK PHOS 92 U/L Normal 45-117 [facility] Comment on above: Order Comment: Campu s: M Performed By: #### L 500.12020, L500.68684, L500.78063, L500.42380, L500.13852 ####[facility] VRHFTZNPUS9241 [place], [place] [address]Ha# [phone] ALT [Catalytic activity/Vol] 13 U/L Normal 13-61 [facility] Comment on above: Order Comment: Campu s: M Result Comment: RESU LTS MAY BE FALSELY DEPRESSED AFTER THE ADMINISTRATION OFSULFASALAZINE AND/OR SULFAPYRIDINE. Performed By: #### L 500.68180, L500.17977, L500.84866, L500.05665, L500.21322 ####[facility] MWCWOASXEF2030 [place], [place] [address]Cv# [phone] AST [Catalytic activity/Vol] 18 U/L Normal 8-34 [facility] Comment on above: Order Comment: Campu s: M Result Comment: RESU LTS MAY BE FALSELY DEPRESSED AFTER THE ADMINISTRATION OFSULFASALAZINE AND/OR SULFAPYRIDINE. Performed By: #### L 500.50626, L500.76908, L500.44612, L500.66521, L500.63236 ####[facility] YSCAYSSKEF[address] [place] [address]Fv# [phone] BILI DIRECT 0.3 MG/DL Normal 0.00-0.36 [facility] Comment on above: Order Comment: Campu s: M Result Comment: NOTE NEW NORMAL RANGE DUE TO REAGENT CHANGE Performed By: #### L 500.61493, L500.82971, L500.41040, L500.46401, L500.32514 ####[facility] ZBQNJILCDQ[address] [place] [address]Ty# [phone] BILI TOTAL 0.90 MG/DL Normal 0.2-1.0 [facility] Comment on above: Order Comment: Campu s: M Performed By: #### L 500.88471, L500.97993, L500.82655, L500.07015, L500.97544 ####[facility] EVOQZDISEX2999 [place], [place] [address]Ib# [phone] Globulin (S) [Mass/Vol] 2.6 g/dL Normal 2.2-4.2 [facility] Comment on above: Order Comment: Campu s: M Performed By: #### L 500.55946, L500.34949, L500.55557, L500.35569, L500.17150 ####[facility] FAZJRSNTUM3164 [place], [place] [address]Ox# [phone] Protein [Mass/Vol] 6.8 g/dL Normal 6.0-8.5 [facility] Comment on above: Order Comment: Campu s: M Performed By: #### L 500.76542, L500.58765, L500.31850, L500.22438, L500.55980 ####[facility] YNEDPLWPNH9159 [place], [place] [address]Sb# [phone] [id number] 12-25-2021 SARS-CoV-2 (COVID-19) RNA DANIEL+probe Ql (Unsp spec) Negative Invalid Interpretation Code Negative [facility] Comment on above: Order Comment: Campu [...] performed by PCR. Performed By: #### L 770.60925 ####[facility] QOFFQCTHMD2585 [place], [place] [address]Ie# [phone] UA COMPLETEon 12-25-2021 Color (U) Straw Normal [facility] Comment on above: Order Comment: Campu s: M Performed By: #### L 600.42769 ####[facility] KFBTQYXZIH6587 [place], [place] [address]Jc# [phone] Glucose (U) [Mass/Vol] 500 mg/dL Normal NORMAL [facility] Comment on above: Order Comment: Campu s: M Performed By: #### L 600.74503 ####[facility] AJKKEVHPOA3526 [place], [place] [address]Qw# [phone] UA APPEARANCE Clear Normal CLEAR [facility] Comment on above: Order Comment: Campu s: M Performed By: #### L 600.13886 ####[facility] YLKOOBXOYN4417 [place], [place] [address]Hg# [phone] UA BILIRUBIN Negative Normal NEGATIVE [facility] Comment on above: Order Comment: Campu s: M Performed By: #### L 600.55950 ####[facility] GKABNGJWJK5103 [place], [place] [address]Yx# [phone] UA BLOOD Negative Normal NEGATIVE [facility] Comment on above: Order Comment: Campu s: M Performed By: #### L 600.02411 ####[facility] CVBNHOTCKV7725 [place], [place] [address]Ab# [phone] UA KETONE 80 Normal NEGATIVE [facility] Comment on above: Order Comment: Campu s: M Performed By: #### L 600.77759 ####[facility] YBCYJUZIXU[address] [place] [address]Ob# [phone] UA LK ESTERASE Negative Normal NEGATIVE [facility] Comment on above: Order Comment: Campu s: M Performed By: #### L 600.34099 ####[facility] YHVDIVSOSS[address] [place] [address]Tp# [phone] UA NITRITE Negative Normal NEGATIVE [facility] Comment on above: Order Comment: Campu s: M Performed By: #### L 600.45429 ####[facility] VKBFOVTJLI9[address] [place] [address]Vj# [phone] UA PH 7.0 Normal 5-6 [facility] Comment on above: Order Comment: Campu s: M Performed By: #### L 600.00814 ####[facility] HZBTBOEWEU[address] [place] [address] 7[address]Tc# [phone] UA PROTEIN Negative Normal NEGATIVE [facility] Comment on above: Order Comment: Campu s: M Performed By: #### L 600.35427 ####[facility] KHASGOJUSP183[address] [place] [address]Wa# [phone] UA SPEC GRAV 1.028 Normal 1.005-1.030 [facility] Comment on above: Order Comment: Campu s: M Performed By: #### L 600.04353 ####[facility] TDEYWPMCPT9[address] [place] [address]Oc# [phone] UA UROBILINOGEN Negative Normal NORMAL [facility] Comment on above: Order Comment: Campu s: M Performed By: #### L 600.73462 ####[facility] YMQTBIDMON6835[address] [place] [address]Fz# [phone] VBGPEon 12-25-2021 BASE EXCESS -3.6 MMOL/L Low 0-2 [facility] Comment on above: Order Comment: Campu s: M Performed By: #### L 550.80386, L100.21641 ####[place] [address] [place], [place] [address]Tt# [phone] Body temperature 98.6 [degF] Normal [facility] Comment on above: Order Comment: Campu s: M Performed By: #### L 550.36207, L100.40899 ####[address] [address]Kk# [phone] EQUIPMENT UNKNOWN Normal [facility] Comment on above: Order Comment: Campu s: M Performed By: #### L 550.51942, L100.38897 ####[facility] ZWKKFQJHRZ[address]40[address] [place] [address]Ih# [phone] HCO3 (Bld) [Moles/Vol] 17.0 mmol/L Low 22-26 M [facility] Comment on above: Order Comment: Campu s: M Performed By: #### L 550.46116, L100.95954 ####[facility] QGTXNUXCJU4134[address] [place] [address] 17[address]Ti# [phone] Hemoglobin (Bld) [Mass/Vol] 14.2 g/dL Low 16.0-22.0 [facility] Comment on above: Order Comment: Campu s: M Performed By: #### L 550.89513, L100.13590 ####[facility] VLHITTHOIB[address] [place] [address]Tb# [phone] IONIZED CA 1.13 MMOL/L Normal 1.13-1.32 [facility] Comment on above: Order Comment: Campu s: M Performed By: #### L 550.07582, L100.39574 ####[facility]1320 [place], [place] [address]Zn# [phone] Potassium [Moles/Vol] 4.1 mmol/L Normal 3.5-5.0 [facility] Comment on above: Order Comment: Campu s: M Performed By: #### L 550.97714, L100.81717 ####[address] [address]Xh# [phone] SAMPLE SITE VENOUS Normal [facility] Comment on above: Order Comment: Campu s: M Performed By: #### L 550.83688, L100.14096 ####[address] [address]Bi# [phone] SAMPLE TYPE VENOUS Normal [facility] Comment on above: Order Comment: Campu s: M Performed By: #### L 550.26072, L100.73859 ####[address] [address]Ra# [phone] Sodium [Moles/Vol] 136 mmol/L Normal 136-148 [facility] Comment on above: Order Comment: Campu s: M Performed By: #### L 550.87230, L100.68033 ####[address] [address]Aw# [phone] VBG CARBOXYHGB 1.4 % Normal 0-10 [facility] Comment on above: Order Comment: Campu s: M Performed By: #### L 550.93858, L100.42574 ####[facility] WEMCNONXLL[address] [place] [address]Zg# [phone] VBG METHGB 0.3 % Low 0.4-1.5 [facility] Comment on above: Order Comment: Campu s: M Performed By: #### L 550.53257, L100.33400 ####[facility] GJCETYOFZA[address] [place] [address]At# [phone] VBG O2 CAPACITY 19.4 VOL% Normal [facility] Comment on above: Order Comment: Campu s: M Performed By: #### L 550.07932, L100.32165 ####[facility] FGPJIWMERZ0484 [place], [place] [address]Ys# [phone] VBG O2 HG SATUR 65.5 % Normal 40-70 [facility] Comment on above: Order Comment: Campu s: M Performed By: #### L 550.61110, L100.88900 ####[facility] WUDNJPKKFJ1495 [place], [place] [address]Ry# [phone] VBG PCO2 21.5 MMHG Critically low 40-50 [facility] Comment on above: Order Comment: Campu s: M Result Comment: CRIT ICAL VALUE(S) VERIFIED AND HAND DELIVERED TO AND READBACK BY DR. HOFFMAN AT 1835 12/25/21 BY JOSE MARCIAL. Performed By: #### L 550.64865, L100.54189 ####[facility] CGZSFMFQSK2713 [place], [place] [address]Is# [phone] VBG PH 7.52 MMHG High 7.31-7.41 [facility] Comment on above: Order Comment: Campu s: M Performed By: #### L 550.04637, L100.84075 ####[facility] YDFSEPIFPH2026 [place], [place] [address]Ge# [phone] VBG PO2 LESS THAN 32.4 Low 35-45 [facility] Comment on above: Order Comment: Campu s: M Result Comment: VALU E IS OUTSIDE OF THE VERIFIED RANGES OF THIS ANALYZER.LIN MARCIAL Performed By: #### L 550.44104, L100.66890 ####[facility] BPFOHCATXP[address] [place] [address]Xn# [phone] DISCH.SUMon 10-25-2021 DISCH.SUM Normal [facility] GLUCOSE METERon 10-25-2021 Glucose [Mass/Vol] 113 mg/dL Normal 70-115 [facility] Glucose [Mass/Vol] 108 mg/dL Normal 70-115 [facility] BMPon 10-24-2021 Anion gap [Moles/Vol] 12 mmol/L Normal 5-16 [facility] Comment on above: Order Comment: Campu s: M Performed By: #### L 500.12140, L500.54110 ####[facility] KYDDZFWJRD8732 [place], [place] [address]Gr# [phone] Calcium [Mass/Vol] 8.4 mg/dL Low 8.5-10.5 [facility] Comment on above: Order Comment: Campu s: M Result Comment: NOTE NEW NORMAL RANGE DUE TO REAGENT CHANGE Performed By: #### L 500.30307, L500.67337 ####[facility] NOPQPSSAQK9480 [place], [place] [address]Xr# [phone] Chloride [Moles/Vol] 103 mmol/L Normal 98-107 [facility] Comment on above: Order Comment: Campu s: M Performed By: #### L 500.42049, L500.91281 ####[facility] QBFOMBKQPX[address] [place] [address]Ra# [phone] CO2 [Moles/Vol] 24.0 mmol/L Normal 21-32 [facility] Comment on above: Order Comment: Campu s: M Performed By: #### L 500.75011, L500.12936 ####[facility] GZVIVIENPW7933 [place], [place] [address]Kf# [phone] Creatinine [Mass/Vol] 0.69 mg/dL Normal 0.510-0.950 [facility] Comment on above: Order Comment: Campu s: M Result Comment: Cleopatra ents receiving either N-Acetylcysteine (NAC) orMetamizole prior to venipuncture, may have falsely depressedresults. Performed By: #### L 500.09877, L500.89351 ####[facility] SLUCXCXAFT2319 [place], [place] [address]Or# [phone] Glucose [Mass/Vol] 113 mg/dL High 70-100 [facility] Comment on above: Order Comment: Campu s: M Result Comment: 70-1 00- Normal Fasting; 100-125 Impaired Fasting; greaterthan 126 on more than one result- Diabetes. ADA guidelines.Results may be falsely elevated after the administration ofSulfapyridine.Results may be falsely depressed after the administration ofSulfasalazine. Performed By: #### L 500.35773, L500.76646 ####[facility] QJXPBOWXRV3884 [place], [place] [address]Dk# [phone] Potassium [Moles/Vol] 3.0 mmol/L Low 3.5-5.1 [facility] Comment on above: Order Comment: Campu s: M Result Comment: NOT A CRITICAL Performed By: #### L 500.22136, L500.81788 ####[address] [address]Ho# [phone] Sodium [Moles/Vol] 139 mmol/L Normal 136-145 [facility] Comment on above: Order Comment: Campu s: M Performed By: #### L 500.18163, L500.11807 ####[facility] [address]UBKBHSTG[address] [place] [address]Gi# [phone] Urea nitrogen [Mass/Vol] 10 mg/dL Normal 7-26 [facility] Comment on above: Order Comment: Campu s: M Performed By: #### L 500.78833, L500.47059 ####[facility] MDNBDDSVMO[address] [place] [address]Ie# [phone] Urea nitrogen/Creatinine [Mass ratio] 15 mg/mg Normal 15-24 [facility] Comment on above: Order Comment: Campu s: M Performed By: #### L 500.83024, L500.89415 ####[facility] SNGSQOUBHV6[address] [place] [address]Cq# [phone] CBC W/DIFFon 10-24-2021 BASO ABS 0.00 K/CU MM Normal 0-0.2 [facility] Comment on above: Order Comment: Campu s: M Performed By: #### L 200.19143 ####[facility] PGBAQMXRMG0558 [place], [place] [address]Bn# [phone] Basophils/100 WBC (Bld) 0.2 % Normal 0-2 [facility] Comment on above: Order Comment: Campu s: M Performed By: #### L 200.59282 ####[facility] WADAVTZNUQ6587[address] [place] [address]Ho# [phone] EOS ABS 0.00 K/CU MM Normal 0-0.5 [facility] Comment on above: Order Comment: Campu s: M Performed By: #### L 200.47133 ####[place] [address]Ph# [phone] Eosinophils/100 WBC (Bld) 0.0 % Normal 0-5 [facility] Comment on above: Order Comment: Campu s: M Performed By: #### L 200.66776 ####[facility] FQSPNCDRLZ[address] [place] [address]Bm# [phone] Erythrocyte distribution width (RBC) [Ratio] 13.3 % Normal 11-14.5 [facility] Comment on above: Order Comment: Campu s: M Performed By: #### L 200.85069 ####[address] [address]Ee# [phone] Hematocrit (Bld) [Volume fraction] 36.5 % Normal 35.0-47.0 [facility] Comment on above: Order Comment: Campu s: M Performed By: #### L 200.27013 ####[facility] BSHBJZJRAQ[address] [place] [address]Sb# [phone] Hemoglobin (Bld) [Mass/Vol] 12.3 g/dL Normal 11.5-15.5 [facility] Comment on above: Order Comment: Campu s: M Performed By: #### L 200.31204 ####[facility] NBWSXIIIGV[address] [place], [place] [address]Ph# [phone] IMMATR GRAN ABS 0.20 K/CU MM Normal Less than 2 [facility] Comment on above: Order Comment: Campu s: M Performed By: #### L 200.44363 ####[facility] YMVNBMSXTM4078 [place], [place] [address]Nj# [phone] IMMATURE GRAN % 1.3 % Normal Less than 2 [facility] Comment on above: Order Comment: Campu s: M Performed By: #### L 200.43739 ####[facility] UPLFIFQUXE[address] [place], [place] [address]Ph# [phone] LYMPH ABS 1.90 K/CU MM Normal 0.9-4.4 [facility] Comment on above: Order Comment: Campu s: M Performed By: #### L 200.24166 ####[place] [address]Ph# [phone] Lymphocytes/100 WBC (Bld) 14.9 % Low 20-40 [facility] Comment on above: Order Comment: Campu s: M Performed By: #### L 200.37943 ####[facility] SXLKOCIYKR[address] [place], [place] [address]Ph# [phone] MCHC (RBC) [Mass/Vol] 33.7 g/dL Normal 32.0-36.0 [facility] Comment on above: Order Comment: Campu s: M Performed By: #### L 200.45704 ####[facility] JEEAGCRBOS[address] [place], [place] [address]Ph# [phone] MCV (RBC) [Entitic vol] 84.1 fL Normal 80.0-99.0 [facility] Comment on above: Order Comment: Campu s: M Performed By: #### L 200.83283 ####[facility] [id number] [place] [address]Ii# [phone] MONO ABS 0.70 K/CU MM Normal 0.1-1.1 [facility] [place] Comment on above: Order Comment: Campu s: M Performed By: #### L 200.96890 ####[facility] [id number] [place], [place] [address]Kd# [phone] Monocytes/100 WBC (Bld) 5.3 % Normal 2-10 [facility] Comment [facility]: Order Comment: Campu s: M Performed By: #### L [id number] ####[facility] [id number] [place], [place] [address]Bs# [phone] NEUTROPHIL ABS 10.10 K/CU MM High 2.0-8.3 [facility] Comment on above: Order Comment: Campu s: M Performed By: #### L 200.63144 ####[facility] [id number] [place], [place] [address]Ph# [phone] Neutrophils/100 WBC (Bld) 78.3 % High 45-75 [facility] Comment on above: Order Comment: Campu s: M Performed By: #### L 200.18783 ####[facility] [id number] [place], [place] [address]Ph# [phone] Nucleated RBC/100 WBC (Bld) [Ratio] 0.0 % Normal Less than 1 [facility] Comment on above: Order Comment: Campu s: M Performed By: #### L 200.35054 ####[facility] [id number] [place] [address]La# [phone] Platelet mean volume (Bld) [Entitic vol] 11.8 fL Normal 9.4-12.4 [facility] Comment on above: Order Comment: Campu s: M Performed By: #### L 200.36135 ####[facility] [id number] [place] [address]Mz# [phone] PLT 176 K/CU MM Normal 150-450 [facility] Comment on above: Order Comment: Campu s: M Performed By: #### L 200.25683 ####[facility] [id number] [place], [place] [id number]# [phone] RBC 4.34 M/CU MM Normal 3.90-5.30 [facility] Comment on above: Order Comment: Campu s: M Performed By: #### L 200.64868 ####[facility] ROWKBUIFZE3350 [place], [place] [address]Rz# [phone] WBC 12.9 K/CUMM High 4.5-11.0 [facility] Comment on above: Order Comment: Campu s: M Performed By: #### L 200.83378 ####[facility] AROXEZ[address]QU[address] [place] [address]Na# [phone] GFR ESTon 10-24-2021 IF AMER Greater than 60 Normal [facility] Comment on above: Order Comment: Campu s: M Performed By: #### L 500.84261, L500.56866 ####[facility] HLTHVJMUNP0684 [place], [place] [address]Ix# [phone] IF non-AFR AMER Greater than 60 Normal [facility] Comment on above: Order Comment: Campu s: M Performed By: #### L 500.21492, L500.45767 ####[facility] CXRPJLVALZ9649 [place], [place] [address]Am# [phone] GLUCOSE METERon 10-24-2021 Glucose [Mass/Vol] 203 mg/dL High 70-115 [facility] Glucose [Mass/Vol] 115 mg/dL Normal 70-115 [facility] Glucose [Mass/Vol] 103 mg/dL Normal 70-115 [facility] Glucose [Mass/Vol] 112 mg/dL Normal 70-115 [facility] 10-24-2021 PROG IMS Normal [facility] Progress Note-Hospitalist Normal [facility] [place] PTon 10-24-2021 INR Coag (PPP) [Relative time] 1.05 {INR} Normal 0.9-1.1 [facility] Comment on above: Order Comment: Campu s: M Result Comment: Den mmended PT INR therapeutic range for remote computer terminal operator andprophylactic therapy is 2.0 - 3.0. For heart valve andshunt patients the range is 2.5 - 3.5. Performed By: #### L 300.84873 ####[facility] DYICGNCKTG[address] [place] [address]Nc# [phone] PTS 11.4 SECONDS Normal 9.5-12.0 [facility] Comment on above: Order Comment: Campu s: M Performed By: #### L 300.70804 ####[facility] PCBCKAPOAP[address] [place] [address]Ve# [phone] UA COMPLETEon 10-24-2021 Color (U) Straw Normal [facility] Comment on above: Order Comment: Campu s: M Performed By: #### L 600.12063 ####[address] [address]Fu# [phone] Glucose (U) [Mass/Vol] Negative Normal NORMAL [facility] Comment on above: Order Comment: Campu s: M Performed By: #### L 600.27861 ####[facility] FCNIZPLRKH[address] [place] [address]Pp# [phone] UA APPEARANCE Clear Normal CLEAR [facility] Comment on above: Order Comment: Campu s: M Performed By: #### L 600.63714 ####[facility] [id number] [place] [address]Dm# [phone] UA BILIRUBIN Negative Normal NEGATIVE [facility] Comment on above: Order Comment: Campu s: M Performed By: #### L 600.38360 ####[facility] PWHLAHVPLD[address]10[address] [place] [address]Jp# [phone] UA BLOOD Negative Normal NEGATIVE [facility] Comment on above: Order Comment: Campu s: M Performed By: #### L 600.43733 ####[facility] RUPDIPAZTK[address] [place] [address] 97[address]Fn# [phone] UA KETONE 20 Normal NEGATIVE [facility] Comment on above: Order Comment: Campu s: M Performed By: #### L 600.42143 ####[facility] YTYNXLSTYQ6239 [place], [place] [address]Nv# [phone] UA LK ESTERASE Negative Normal NEGATIVE [facility] Comment on above: Order Comment: Campu s: M Performed By: #### L 600.16331 ####[facility] GZXPJXIPAH5751 [place], [place] [address]Yj# [phone] UA NITRITE Negative Normal NEGATIVE [facility] Comment on above: Order Comment: Campu s: M Performed By: #### L 600.29077 ####[facility] JRHOQQBONM5600 [place], [place] [address]Sc# [phone] UA PH 7.0 Normal - [facility] Comment on above: Order Comment: Campu s: M Performed By: #### L 600.85615 ####[facility] [id number] [place] [address]As# [phone] UA PROTEIN Negative Normal NEGATIVE [facility] Comment on above: Order Comment: Campu s: M Performed By: #### L 600.75455 ####[facility] CTAQGUFXEN[address] [place] [address]Ys# [phone] UA SPEC GRAV 1.009 Normal 1.005-1.030 [facility] Comment on above: Order Comment: Campu s: M Performed By: #### L 600.58843 ####[facility] [id number] [place] [address]Cg# [phone] UA UROBILINOGEN Negative Normal NORMAL [facility] Comment on above: Order Comment: Campu s: M Performed By: #### L 600.35048 ####[facility] MRKQMXXPXG[address] [place] [address]Mh# [phone] BMPon 10-23-2021 Anion gap [Moles/Vol] 12 mmol/L Normal -16 [facility] Comment on above: Order Comment: Campu s: M Performed By: #### L 500.55541, L500.42145, L500.86569 ####[facility] WDRUOBGYWR3121 [place], [place] [address]Wg# [phone] Calcium [Mass/Vol] 8.7 mg/dL Normal 8.5-10.5 [facility] Comment on above: Order Comment: Campu s: M Result Comment: NOTE NEW NORMAL RANGE DUE TO REAGENT CHANGE Performed By: #### L 500.68075, L500.09712, L500.24192 ####[facility] UZLTWSAYKE9907 [place], [place] [address]Gn# [phone] Chloride [Moles/Vol] 107 mmol/L Normal 98-107 [facility] Comment on above: Order Comment: Campu s: M Performed By: #### L 500.34413, L500.19397, L500.75443 ####[facility] YCHPOCEIKF9352 [place], [place] [address]Jo# [phone] CO2 [Moles/Vol] 22.0 mmol/L Normal 21-32 [facility] Comment on above: Order Comment: Campu s: M Performed By: #### L 500.44791, L500.15015, L500.81949 ####[facility] UTEDHCZJQC7708 [place], [place] [address]Nl# [phone] Creatinine [Mass/Vol] 0.62 mg/dL Normal 0.510-0.950 [facility] Comment on above: Order Comment: Campu s: M Result Comment: Cleopatra ents receiving either N-Acetylcysteine (NAC) orMetamizole prior to venipuncture, may have falsely depressedresults. Performed By: #### L 500.63483, L500.55132, L500.66864 ####[facility] VVDRRCQJIG1658 [place], [place] [address]Ge# [phone] Glucose [Mass/Vol] 208 mg/dL High 70-100 [facility] Comment on above: Order Comment: Campu s: M Result Comment: 70-1 00- Normal Fasting; 100-125 Impaired Fasting; greaterthan 126 on more than one result- Diabetes. ADA guidelines.Results may be falsely elevated after the administration ofSulfapyridine.Results may be falsely depressed after the administration ofSulfasalazine. Performed By: #### L 500.69279, L500.34612, L500.19527 ####[facility] QZOBXNQYUO7427 [place], [place] [address]Zu# [phone] Potassium [Moles/Vol] 3.2 mmol/L Low 3.5-5.1 [facility] Comment on above: Order Comment: Campu s: M Performed By: #### L 500.28038, L500.64378, L500.63527 ####[facility] KYQFPMXKLI4269 [place], [place] [address]Rw# [phone] Sodium [Moles/Vol] 141 mmol/L Normal 136-145 [facility] Comment on above: Order Comment: Campu s: M Performed By: #### L 500.42891, L500.80497, L500.16403 ####[facility] RMFWONYFLP4553 [place], [place] [address]Nq# [phone] Urea nitrogen [Mass/Vol] 16 mg/dL Normal 7-26 [facility] Comment on above: Order Comment: Campu s: M Performed By: #### L 500.28423, L500.47834, L500.67695 ####[facility] HEPLAUBZMW7163 [place], [place] [address]Ov# [phone] Urea nitrogen/Creatinine [Mass ratio] 26 mg/mg High 15-24 [facility] Comment on above: Order Comment: Campu s: M Performed By: #### L 500.66292, L500.91451, L500.05862 ####[facility] YWOYFRTTHP[address] [place] [address]Ss# [phone] CBC W/DIFFon 10-23-2021 BASO ABS 0.00 K/CU MM Normal 0-0.2 [facility] Comment on above: Order Comment: Campu s: M Performed By: #### L 200.16535 ####[facility] MPNDSXFERP[address] [place] [address]Wf# [phone] Basophils/100 WBC (Bld) 0.2 % Normal 0-2 [facility] Comment on above: Order Comment: Campu s: M Performed By: #### L 200.14607 ####[facility] XLADXEKHLL0871 [place], [place] [address]Yp# [phone] EOS ABS 0.00 K/CU MM Normal 0-0.5 [facility] Comment on above: Order Comment: Campu s: M Performed By: #### L 200.66345 ####[facility] UDTXLPMLZG[address]13[address] [place] [address]Iv# [phone] Eosinophils/100 WBC (Bld) 0.0 % Normal 0-5 [facility] Comment on above: Order Comment: Campu s: M Performed By: #### L 200.47538 ####[address] [address]Gg# [phone] Erythrocyte distribution width (RBC) [Ratio] 13.9 % Normal 11-14.5 [facility] Comment on above: Order Comment: Campu s: M Performed By: #### L 200.13383 ####[facility] BPNZHKESIX[address] [place] [address]Xh# [phone] Hematocrit (Bld) [Volume fraction] 32.9 % Low 35.0-47.0 [facility] Comment on above: Order Comment: Campu s: M Performed By: #### L 200.96802 ####[facility] OUSNTHAYEY[address] [place] [address]Fw# [phone] Hemoglobin (Bld) [Mass/Vol] 11.0 g/dL Low 11.5-15.5 [facility] Comment on above: Order Comment: Campu s: M Performed By: #### L 200.97990 ####[facility] [id number] [place] [address]Gu# [phone] IMMATR GRAN ABS 0.10 K/CU MM Normal Less than 2 [facility] Comment on above: Order Comment: Campu s: M Performed By: #### L 200.65997 ####[facility] JKEQJIOTLI7493 [place], [place] [address]Hl# [phone] IMMATURE GRAN % 0.8 % Normal Less than 2 [facility] Comment on above: Order Comment: Campu s: M Performed By: #### L 200.72885 ####[facility] XROUKCWDYC[address] [place] [address]Bv# [phone] LYMPH ABS 1.80 K/CU MM Normal 0.9-4.4 [facility] Comment on above: Order Comment: Campu s: M Performed By: #### L 200.43710 ####[place] [address]Ph# [phone] Lymphocytes/100 WBC (Bld) 10.5 % Low 20-40 [facility] Comment on above: Order Comment: Campu s: M Performed By: #### L 200.76393 ####[facility] UPJQBKTKQA[address] [place], [place] [address]Ph# [phone] MCHC (RBC) [Mass/Vol] 33.4 g/dL Normal 32.0-36.0 [facility] Comment on above: Order Comment: Campu s: M Performed By: #### L 200.74011 ####[facility] RGUDDNBPXR[address] [place] [address] 24[address]Ba# [phone] MCV (RBC) [Entitic vol] 84.6 fL Normal 80.0-99.0 [facility] Comment on above: Order Comment: Campu s: M Performed By: #### L 200.92921 ####[facility] ATIPNFZUFQ[address] [place] [address] 12[address]Vx# [phone] MONO ABS 0.70 K/CU MM Normal 0.1-1.1 [facility] Comment on above: Order Comment: Campu s: M Performed By: #### L 200.47993 ####[facility] [address]YAXQRHYEC[address] [place], [place] [address]Ph# [phone] Monocytes/100 WBC (Bld) 3.9 % Normal 2-10 [facility] Comment on above: Order Comment: Campu s: M Performed By: #### L 200.43421 ####[facility] QRRRKODCTY5713 [place], [place] [address]Wl# [phone] NEUTROPHIL ABS 14.50 K/CU MM High 2.0-8.3 [facility] Comment on above: Order Comment: Campu s: M Performed By: #### L 200.68842 ####[facility] TMBCCJKUUI[address] [place], [place] [address]Ph# [phone] Neutrophils/100 WBC (Bld) 84.6 % High 45-75 [facility] Comment on above: Order Comment: Campu s: M Performed By: #### L 200.01641 ####[facility] LCNFZZYQNW[address] [place], [place] [address]Ph# [phone] Nucleated RBC/100 WBC (Bld) [Ratio] 0.0 % Normal Less than 1 [facility] Comment on above: Order Comment: Campu s: M Performed By: #### L 200.07857 ####[facility] [address]KJXMMRWP[address] [place], [place] [address]Ph# [phone] Platelet mean volume (Bld) [Entitic vol] 12.2 fL Normal 9.4-12.4 [facility] Comment on above: Order Comment: Campu s: M Performed By: #### L 200.04514 ####[facility] YBFACAGAAT[address] [place] [address]Rv# [phone] PLT 145 K/CU MM Low 150-450 [facility] Comment on above: Order Comment: Campu s: M Performed By: #### L 200.37136 ####[facility] FXCDEHIKLX6674 [place], [place] [address]Pi# [phone] RBC 3.89 M/CU MM Low 3.90-5.30 [facility] Comment on above: Order Comment: Campu s: M Performed By: #### L 200.98911 ####[facility] VRFNRAKVEQ8215 [place], [place] [address]Qi# [phone] WBC 17.1 K/CUMM High 4.5-11.0 [facility] Comment on above: Order Comment: Campu s: M Performed By: #### L 200.15566 ####[facility] UECADAFYTQ8790 [place], [place] [address]Td# [phone] GFR ESTon 10-23-2021 IF AMER Greater than 60 Normal [facility] Comment on above: Order Comment: Campu s: M Performed By: #### L 500.27381, L500.61130, L500.12136 ####[facility] DPUQYQLCSR6945 [place], [place] [address]Lp# [phone] IF non-AFR AMER Greater than 60 Normal [facility] Comment on above: Order Comment: Campu s: M Performed By: #### L 500.52192, L500.82769, L500.20413 ####[facility] NALVJKQQIS0329 [place], [place] [address]Hu# [phone] GLUCOSE METERon 10-23-2021 Glucose [Mass/Vol] 142 mg/dL High 70-115 [facility] Glucose [Mass/Vol] 127 mg/dL High 70-115 [facility] Glucose [Mass/Vol] 172 mg/dL High 70-115 [facility] MAGNESIUMon 10-23-2021 Magnesium [Mass/Vol] 1.7 mg/dL Normal 1.6-2.6 [facility] Comment on above: Order Comment: Campu s: M Performed By: #### L 500.17436, L500.50683, L500.41267 ####[facility] ALLULXQDPO5105 [place], [place] [address]Fb# [phone] PROG IMSon 10-23-2021 PROG IMS Normal [facility] Progress Note-Hospitalist Normal [facility] BMPon 10-22-2021 Anion gap [Moles/Vol] 10 mmol/L Normal 5-16 [facility] Comment on above: Order Comment: Campu s: M Performed By: #### L 500.45207, L500.06514 ####[facility] WQVFJFGIFX1525 [place], [place] [address]Ui# [phone] Calcium [Mass/Vol] 8.9 mg/dL Normal 8.5-10.5 [facility] Comment on above: Order Comment: Campu s: M Result Comment: NOTE NEW NORMAL RANGE DUE TO REAGENT CHANGE Performed By: #### L 500.86020, L500.42532 ####[facility] NAFXRLLSSN2573 [place], [place] [address]Aa# [phone] Chloride [Moles/Vol] 109 mmol/L High 98-107 [facility] Comment on above: Order Comment: Campu s: M Performed By: #### L 500.78880, L500.76717 ####[facility] PUJZDXEOLR0356 [place], [place] [address]Xt# [phone] CO2 [Moles/Vol] 20.0 mmol/L Low 21-32 [facility] Comment on above: Order Comment: Campu s: M Performed By: #### L 500.79986, L500.35250 ####[facility] VRKGMTGYBS2548 [place], [place] [address]Fq# [phone] Creatinine [Mass/Vol] 0.63 mg/dL Normal 0.510-0.950 [facility] Comment on above: Order Comment: Campu s: M Result Comment: Cleopatra ents receiving either N-Acetylcysteine (NAC) orMetamizole prior to venipuncture, may have falsely depressedresults. Performed By: #### L 500.34007, L500.78343 ####[facility] ZEBQJKGRKJ3410 [place], [place] [address]Ao# [phone] Glucose [Mass/Vol] 237 mg/dL High 70-100 [facility] Comment on above: Order Comment: Campu s: M Result Comment: 70-1 00- Normal Fasting; 100-125 Impaired Fasting; greaterthan 126 on more than one result- Diabetes. ADA guidelines.Results may be falsely elevated after the administration ofSulfapyridine.Results may be falsely depressed after the administration ofSulfasalazine. Performed By: #### L 500.82817, L500.93397 ####[facility] PYGLBEZIZJ8333 [place], [place] [address]Qi# [phone] Potassium [Moles/Vol] 3.8 mmol/L Normal 3.5-5.1 [facility] Comment on above: Order Comment: Campu s: M Performed By: #### L 500.54896, L500.61629 ####[facility] ENKTRBVJIK[address] [place] [address]Dh# [phone] Sodium [Moles/Vol] 140 mmol/L Normal 136-145 [facility] Comment on above: Order Comment: Campu s: M Performed By: #### L 500.09247, L500.95687 ####[facility] TUYQALSZJH[address] [place] [address]Wi# [phone] Urea nitrogen [Mass/Vol] 15 mg/dL Normal 7-26 [facility] Comment on above: Order Comment: Campu s: M Performed By: #### L 500.07121, L500.46575 ####[facility] BDGLDZONIV7099 [place], [place] [address]Bk# [phone] Urea nitrogen/Creatinine [Mass ratio] 24 mg/mg Normal 15-24 [facility] Comment on above: Order Comment: Campu s: M Performed By: #### L 500.69472, L500.77136 ####[facility] YKSGVJAPDH8093 [place], [place] [address]Sr# [phone] Urea nitrogen/Creatinine [Mass ratio] 25 mg/mg High 15-24 [facility] Comment on above: Order Comment: Campu s: M Performed By: #### L 500.12311, L500.09056, L500.94565, L500.91890 ####[facility] IRGTNHDUUH[address] [place] [address]Lm# [phone] Anion gap [Moles/Vol] 12 mmol/L Normal 5-16 [facility] Comment on above: Order Comment: Campu s: M Performed By: #### L 500.00373, L500.01857, L500.89531, L500.55431 ####[facility] KVAHCTSNAK2861 [place], [place] [address]Wp# [phone] Calcium [Mass/Vol] 10.1 mg/dL Normal 8.5-10.5 [facility] Comment on above: Order Comment: Campu s: M Result Comment: NOTE NEW NORMAL RANGE DUE TO REAGENT CHANGE Performed By: #### L 500.72977, L500.80928, L500.52207, L500.74274 ####[facility] QPRQREZLON6154 [place], [place] [address]Kb# [phone] Chloride [Moles/Vol] 107 mmol/L Normal 98-107 [facility] Comment on above: Order Comment: Campu s: M Performed By: #### L 500.12750, L500.79629, L500.52276, L500.62518 ####[facility] AQQIGXDHWI1724 [place], [place] [address]Og# [phone] CO2 [Moles/Vol] 20.0 mmol/L Low 21-32 [facility] Comment on above: Order Comment: Campu s: M Performed By: #### L 500.58492, L500.76886, L500.90901, L500.38422 ####[facility] WNOAGAFYVX4719 [place], [place] [address]Dd# [phone] Creatinine [Mass/Vol] 0.64 mg/dL Normal 0.510-0.950 [facility] Comment on above: Order Comment: Campu s: M Result Comment: Cleopatra ents receiving either N-Acetylcysteine (NAC) orMetamizole prior to venipuncture, may have falsely depressedresults. Performed By: #### L 500.16375, L500.23397, L500.59125, L500.42906 ####[facility] ZMXTJPHCXS5163 [place], [place] [address]Xr# [phone] Glucose [Mass/Vol] 309 mg/dL High 70-100 [facility] Comment on above: Order Comment: Campu s: M Result Comment: 70-1 00- Normal Fasting; 100-125 Impaired Fasting; greaterthan 126 on more than one result- Diabetes. ADA guidelines.Results may be falsely elevated after the administration ofSulfapyridine.Results may be falsely depressed after the administration ofSulfasalazine. Performed By: #### L 500.93507, L500.85548, L500.12067, L500.43544 ####[facility] XYOJTPWVJV4307 [place], [place] [address]To# [phone] Potassium [Moles/Vol] 3.9 mmol/L Normal 3.5-5.1 [facility] Comment on above: Order Comment: Campu s: M Performed By: #### L 500.15962, L500.73528, L500.58880, L500.92303 ####[facility] WCUYRIZRNI7953 [place], [place] [address]Qs# [phone] Sodium [Moles/Vol] 139 mmol/L Normal 136-145 [facility] Comment on above: Order Comment: Campu s: M Performed By: #### L 500.62307, L500.89367, L500.45307, L500.07505 ####[facility] XUYOICXJLX9588 [place], [place] [address]Vw# [phone] Urea nitrogen [Mass/Vol] 16 mg/dL Normal 7-26 [facility] Comment on above: Order Comment: Campu s: M Performed By: #### L 500.82759, L500.09441, L500.47523, L500.49463 ####[facility] BJLABDXGIS9137 [place], [place] [address]Wt# [phone] CBC W/DIFFon 10-22-2021 BASO ABS 0.10 K/CU MM Normal 0-0.2 [facility] Comment on above: Order Comment: Campu s: M Performed By: #### L 200.71534 ####[facility] RGGJENSZLN6612 [place], [place] [address]Tw# [phone] Basophils/100 WBC (Bld) 0.2 % Normal 0-2 [facility] Comment on above: Order Comment: Campu s: M Performed By: #### L 200.56051 ####[address] [address]Ui# [phone] EOS ABS 0.00 K/CU MM Normal 0-0.5 [facility] Comment on above: Order Comment: Campu s: M Performed By: #### L 200.50080 ####[place] [address]Ph# [phone] Eosinophils/100 WBC (Bld) 0.0 % Normal 0-5 [facility] Comment on above: Order Comment: Campu s: M Performed By: #### L 200.98573 ####[address] [address]Fb# [phone] Erythrocyte distribution width (RBC) [Ratio] 13.5 % Normal 11-14.5 [facility] Comment on above: Order Comment: Campu s: M Performed By: #### L 200.43710 ####[address] [address]Ur# [phone] Hematocrit (Bld) [Volume fraction] 39.5 % Normal 35.0-47.0 [facility] Comment on above: Order Comment: Campu s: M Performed By: #### L 200.91222 ####[facility] O[address]URQHUYA[address] [place] [address]Zh# [phone] Hemoglobin (Bld) [Mass/Vol] 13.4 g/dL Normal 11.5-15.5 [facility] Comment on above: Order Comment: Campu s: M Performed By: #### L 200.48202 ####[facility] GKSKYRAABG[address] [place], [place] [address]Ph# [phone] IMMATR GRAN ABS 0.20 K/CU MM Normal Less than 2 [facility] [place] Comment on above: Order Comment: Campu s: M Performed By: #### L [id number] ####[facility] [id number] [place], [place] [address]Cc# [phone] IMMATURE GRAN % 1.0 % Normal Less than 2 [facility] [place] Comment on above: Order Comment: Campu s: M Performed By: #### L [id number] ####[place] [id number]# [phone] LYMPH ABS 1.30 K/CU MM Normal 0.9-4.4 [facility] [place] Comment on above: Order Comment: Campu s: M Performed By: #### L [id number] ####[place] [id number]# [phone] Lymphocytes/100 WBC (Bld) 5.6 % Low [facility]: Order Comment: Campu s: M Performed By: #### L [id number] ####[facility] [id number] [place], [place] [id number]# [phone] MCHC (RBC) [Mass/Vol] 33.9 g/dL Normal 32.0-36.0 [facility] [place] Comment on above: Order Comment: Campu s: M Performed By: #### L 200.78751 ####[facility] [id number] [place], [place] [id number]# [phone] MCV (RBC) [Entitic vol] 84.4 fL Normal 80.0-99.0 [facility] [place] Comment on above: Order Comment: Campu s: M Performed By: #### L 200.55163 ####[facility] [id number] [place], [place] [id number]# [phone] MONO ABS 0.60 K/CU MM Normal 0.1-1.1 [facility] [place] Comment on above: Order Comment: Campu s: M Performed By: #### L 200.78176 ####[facility] [id number] [place], [place] [address]Ch# [phone] Monocytes/100 WBC (Bld) 2.6 % Normal 2-10 [facility] [place] Comment on above: Order Comment: Campu s: M Performed By: #### L 200.40241 ####[facility] [id number] [place] [address]Gr# [phone] NEUTROPHIL ABS 20.70 K/CU MM High 2.0-8.3 [facility] Comment on above: Order Comment: Campu s: M Performed By: #### L 200.57369 ####[facility] [id number] [place] [address]Bn# [phone] Neutrophils/100 WBC (Bld) 90.6 % High 45-75 [facility] Comment on above: Order Comment: Campu s: M Performed By: #### L 200.17544 ####[facility] NURXXBYKXH0646 [place], [place] [address]Cr# [phone] Nucleated RBC/100 WBC (Bld) [Ratio] 0.0 % Normal Less than 1 [facility] Comment on above: Order Comment: Campu s: M Performed By: #### L 200.27318 ####[facility] HQZPTIAAMZ6037 [place], [place] [address]Xb# [phone] Platelet mean volume (Bld) [Entitic vol] 13.2 fL High 9.4-12.4 [facility] Comment on above: Order Comment: Campu s: M Performed By: #### L 200.20531 ####[facility] ZSTCUWNPGC5534 [place], [place] [address]Iw# [phone] PLT 164 K/CU MM Normal 150-450 [facility] Comment on above: Order Comment: Campu s: M Result Comment: Conf irmed by slide estimate. Performed By: #### L 200.65191 ####[facility] POQHUAOSMF1175 [place] [address]Ph# [phone] PLT EST ADEQUATE Normal [facility] Comment on above: Order Comment: Campu s: M Performed By: #### L 200.02906 ####[facility] XBIMXGGPPS1070 [place], [place] [address]Rm# [phone] POIK 1+ Normal [facility] Comment on above: Order Comment: Campu s: M Performed By: #### L 200.02332 ####[facility] GRJKPIJNJD7363 [place], [place] [address]Km# [phone] POLY 1+ Normal [facility] Comment on above: Order Comment: Campu s: M Performed By: #### L 200.81006 ####[facility] GKSPBUVPPS4108 [place], [place] [address]Cp# [phone] RBC 4.68 M/CU MM Normal 3.90-5.30 [facility] Comment on above: Order Comment: Campu s: M Performed By: #### L 200.27334 ####[facility] GWAAKUSQVY9137 [place], [place] [address]Lm# [phone] WBC 22.9 K/CUMM High 4.5-11.0 [facility] Comment on above: Order Comment: Campu s: M Performed By: #### L 200.48969 ####[facility] [id number] [place] [address]Md# [phone] Stacie 10-22-2021 EMERGENCY PHYSICIAN REPORT This is a preliminary report only, as the practitioner review and authentication has not occurred. Normal [facility] ER Normal [facility] GFR ESTon 10-22-2021 IF AMER Greater than 60 [facility] Comment on above: Order Comment: Campu s: M Performed By: #### L 500.80834, L500.54468 ####[facility] QSQVMFPDCT9535 [place], [place] [address]Gh# [phone] IF non-AFR AMER Greater than 60 Normal [facility] Comment on above: Order Comment: Campu s: M Performed By: #### L 500.36090, L500.18727 ####[facility] MUTOISMZYL8271 [place], [place] [address]Ns# [phone] IF AMER Greater than 60 Normal [facility] [place] Comment on above: Order Comment: Campu s: M Performed By: #### L 500.49507, L500.41742, L500.30002, L500.20390 ####[facility] STVUYZGHMB2572 [place], [place] [address]Nk# [phone] IF non-AFR AMER Greater than 60 Normal [facility] Comment on above: Order Comment: Campu s: M Performed By: #### L 500.13547, L500.01665, L500.95146, L500.62906 ####[facility] FTFCZAOCCW5707 [place], [place] [address]Wz# [phone] GLUCOSE METERon 10-22-2021 Glucose [Mass/Vol] 145 mg/dL High 70-115 [facility] [place] Glucose [Mass/Vol] 255 mg/dL High 70-115 [facility] [place] Glucose [Mass/Vol] 232 mg/dL High 70-115 [facility] [place] Glucose [Mass/Vol] 269 mg/dL High 70-115 [facility] [place] Glucose [Mass/Vol] 249 mg/dL High 70-115 [facility] [place] HPon 10-22-2021 HP Normal [facility] [place] LIPASEon 10-22-2021 Lipase [Catalytic activity/Vol] 18 U/L Normal 12-60 [facility] Comment on above: Order Comment: Campu s: M Result Comment: NOTE NEW NORMAL RANGE DUE TO REAGENT CHANGE Performed By: #### L 500.17348, L500.00494, L500.47421, L500.26565 ####[facility] KJZKJKQQUQ6124 [place], [place] [address]Lb# [phone] LIVERon 10-22-2021 Globulin (S) [Mass/Vol] 2.8 g/dL Normal 2.2-4.2 [facility] Comment on above: Order Comment: Campu s: M Performed By: #### L 500.63110, L500.13064, L500.77830, L500.47752 ####[facility] CCCDJERKJE1322 [place], [place] [address]Ar# [phone] Albumin/Globulin [Mass ratio] 1.54 {ratio} Normal 0.8-2.0 [facility] Comment on above: Order Comment: Campu s: M Performed By: #### L 500.49481, L500.14988, L500.27965, L500.10409 ####[facility] [id number] [place], [place] [address]Lh# [phone] Albumin [Mass/Vol] 4.3 g/dL Normal 3.2-5.0 [facility] Comment on above: Order Comment: Campu s: M Performed By: #### L 500.12121, L500.63757, L500.41956, L500.15522 ####[facility] ULOZRIVDSZ5192 [place], [place] [address]Qt# [phone] ALK PHOS 100 U/L Normal 45-117 [facility] Comment on above: Order Comment: Campu s: M Performed By: #### L 500.62600, L500.90662, L500.65011, L500.99985 ####[facility] QHGAIBKMHR9344 [place], [place] [address]Fl# [phone] ALT [Catalytic activity/Vol] 9 U/L Low 13-61 [facility] Comment on above: Order Comment: Campu s: M Result Comment: RESU LTS MAY BE FALSELY DEPRESSED AFTER THE ADMINISTRATION OFSULFASALAZINE AND/OR SULFAPYRIDINE. Performed By: #### L 500.64839, L500.99093, L500.13878, L500.63203 ####[facility] CISMKQACER2320 [place], [place] [address]Wy# [phone] AST [Catalytic activity/Vol] 12 U/L Normal 8-34 [facility] Comment on above: Order Comment: Campu s: M Result Comment: RESU LTS MAY BE FALSELY DEPRESSED AFTER THE ADMINISTRATION OFSULFASALAZINE AND/OR SULFAPYRIDINE. Performed By: #### L 500.20237, L500.21201, L500.45071, L500.82474 ####[facility] RDWQXJRPWG8623 [place], [place] [address]Yy# [phone] BILI DIRECT 0.3 MG/DL Normal 0.00-0.36 [facility] Comment on above: Order Comment: Campu s: M Result Comment: NOTE NEW NORMAL RANGE DUE TO REAGENT CHANGE Performed By: #### L 500.27262, L500.89506, L500.67723, L500.40242 ####[facility] MREAVKPTJE2278 [place], [place] [address]Tv# [phone] BILI TOTAL 0.80 MG/DL Normal 0.2-1.0 [facility] Comment on above: Order Comment: Campu s: M Performed By: #### L 500.91705, L500.71021, L500.73997, L500.52082 ####[facility] WRDXWJWUAV8633 [place], [place] [address]Cq# [phone] Protein [Mass/Vol] 7.1 g/dL Normal 6.0-8.5 [facility] Comment on above: Order Comment: Campu s: M Performed By: #### L 500.52004, L500.41094, L500.48297, L500.59066 ####[facility] [address]ZCSO[address] [place] [address]To# [phone] [id number] 10-22-2021 SARS-CoV-2 (COVID-19) RNA DANIEL+probe Ql (Unsp spec) Negative Invalid Interpretation Code Negative [facility] Comment on above: Order Comment: Campu s: M Result Comment: RESU LTS CALLED TO ALONZO MORALES/JUSTIN 0106 10/22/21 BY JHOANA PALMERNegative results do not preclude SARS-CoV-2 infection andshould not be used as the sole basis for treatment or otherpatient management decisions. Negative results must becombined with clinical observation, patient history, andepidemiological information.This test was performed by PCR. Performed By: #### L 770.26322 ####[facility] WURJRYPYMV2253 [place], [place] [address]Sw# [phone] UA COMPLETEon 10-22-2021 UA UROBILINOGEN Negative Normal NORMAL [facility] Comment on above: Order Comment: Campu s: M Performed By: #### L 600.25185 ####[facility] LIJXGSFEFV1035 [place], [place] [address]Lk# [phone] Color (U) YELLOW Normal [facility] Comment on above: Order Comment: Campu s: M Performed By: #### L 600.11633 ####[facility] WZFIGGVCNS3972 [place], [place] [address]Ck# [phone] Glucose (U) [Mass/Vol] mg/dL Normal NORMAL [facility] Comment on above: Order Comment: Campu s: M Performed By: #### L 600.68025 ####[facility] SIBRVTEAVB4783 [place], [place] [address]Cq# [phone] Mucus Ql (Urine sed) TRACE Normal NEGATIVE [facility] Comment on above: Order Comment: Campu s: M Performed By: #### L 600.81371 ####[facility] KXUDWNTTAU3740 [place], [place] [address]Ys# [phone] SQUAMOUS EPIS 2 EPI/HPF Normal 0-5 [facility] Comment on above: Order Comment: Campu s: M Performed By: #### L 600.20554 ####[facility] VCQIYFZUTZ5245 [place], [place] [address]Bn# [phone] UA APPEARANCE CLEAR Normal CLEAR [facility] Comment on above: Order Comment: Campu s: M Performed By: #### L 600.69823 ####[facility] YSRFJLAHVP9038 [place], [place] [address]Dc# [phone] UA BACTERIA NONE Normal NONE [facility] Comment on above: Order Comment: Campu s: M Performed By: #### L 600.42784 ####[facility] KWUWYBKETL1574 [place], [place] [address]Nw# [phone] UA BILIRUBIN Negative Normal NEGATIVE [facility] Comment on above: Order Comment: Campu s: M Performed By: #### L 600.14413 ####[facility] LLIPQJORCT[address]407[address] [place] [address]Ri# [phone] UA BLOOD SMALL Normal NEGATIVE [facility] Comment on above: Order Comment: Campu s: M Performed By: #### L 600.28476 ####[facility] [id number] [place] [address]Pz# [phone] UA KETONE 80 Normal NEGATIVE [facility] Comment on above: Order Comment: Campu s: M Performed By: #### L 600.05841 ####[facility] [address]YSOZGYIGI[address]23[address] [place] [address]Qq# [phone] UA LK ESTERASE N Normal NEGATIVE [facility] Comment on above: Order Comment: Campu s: M Performed By: #### L 600.81183 ####[facility] [id number] [place] [address]Vb# [phone] UA NITRITE Negative Normal NEGATIVE [facility] Comment on above: Order Comment: Campu s: M Performed By: #### L 600.67471 ####[facility] [id number] [place] [address]Hk# [phone] UA PH 6.0 Normal 5-6 [facility] Comment on above: Order Comment: Campu s: M Performed By: #### L 600.84440 ####[facility] [id number] [place] [address]Zz# [phone] UA PROTEIN 30 Normal NEGATIVE [facility] Comment on above: Order Comment: Campu s: M Performed By: #### L 600.02286 ####[facility] [id number] [place] [address]Fz# [phone] UA RBC NONE Low 0-3 [facility] Comment on above: Order Comment: Campu s: M Performed By: #### L 600.77891 ####[facility] PJHIODTOAJ6037 [place], [place] [address]Au# [phone] UA SPEC GRAV 1.023 Normal 1.005-1.030 [facility] Comment on above: Order Comment: Campu s: M Performed By: #### L 600.78833 ####[facility] [address]YDRFH[address] [place] [address]Ei# [phone] UA WBC 1 WBC/HPF Normal 0-5 [facility] Comment on above: Order Comment: Campu s: M Performed By: #### L 600.82591 ####[facility] [id number] [place] [address]Ua# [phone] VBG PHon 10-22-2021 VBG PH 7.49 MMHG High 7.31-7.41 [facility] Comment on above: Order Comment: Campu s: M Performed By: #### L 100.54079 ####[facility] [id number] [place] [address]Jy# [phone] BLOOD CULTUREon 06-09-2021 Bacteria identified Cx Nom (Bld) NO GROWTH AFTER 5 DAYS Normal [facility] Comment on above: Order Comment: Campu s: M Performed By: #### M 050.98645 ####[facility] JNCFICMNPX1069[address] [place] [address]Gh# [phone] Bacteria identified Cx Nom (Bld) NO GROWTH AFTER 5 DAYS [facility] Comment on above: Order Comment: Campu s: M Performed By: #### M 050.82210 ####[facility] RHRGXLCAZC[address] [place] [address]Xn# [phone] GLUCOSE METERon 06-07-2021 Glucose [Mass/Vol] 44 mg/dL Critically low 70-115 [facility] 06-05-2021 Bacteria identified Cx Nom (Bld) NO GROWTH AFTER 5 DAYS Normal [facility] Comment on above: Order Comment: Zach s: M Performed By: #### M 050.73226 ####[facility] BSDEHOCZJA1019 [place], [place] [address]Dz# [phone] DISCH.SUMon 06-05-[address] [facility] GLUCOSE METERon 06-05-2021 Glucose [Mass/Vol] 104 mg/dL Normal 70-115 [facility] Glucose [Mass/Vol] 83 mg/dL Normal 70-115 [facility] Glucose [Mass/Vol] 105 mg/dL Normal 70-115 [facility] Glucose [Mass/Vol] 177 mg/dL High 70-115 [facility] Glucose [Mass/Vol] 61 mg/dL Low 70-115 [facility] PROG.ENDOon 06-05-2021 PROG.ENDO Normal [facility] Progress Note-Endocrinology Normal [facility] BCID PCRon 06-04-2021 BC ACINETOBACTE Not detected Normal NOT DETECTD [facility] Comment on above: Performed By: #### L 770. ####[facility] [id number] [place], [place] [address]Pe# [phone] BC BETA STREP A Not detected Normal NOT DETECTD [facility] Comment on above: Performed By: #### L 770. ####[facility] [id number] [place], [place] [address]Zr# [phone] BC BETA STREP B Not detected Normal NOT DETECTD [facility] Comment on above: Performed By: #### L 770.54421 ####[facility] YRBNXOHVXS8895 [place], [place] [address]Xo# [phone] BC C ALBICANS Not detected Normal NOT DETECTD [facility] Comment on above: Performed By: #### L 770.58549 ####[facility] DJBHXMOFEC8542 [place], [place] [address]Px# [phone] BC C GLABRATA Not detected Normal NOT DETECTD [facility] Comment on above: Performed By: #### L 770.65954 ####[facility] SXNBCBKIAK2981 [place], [place] [address]Xq# [phone] BC C KRUSEI Not detected Normal NOT DETECTD [facility] Comment on above: Performed By: #### L 770.28041 ####[facility] AXDNJWRASR0469 [place], [place] [address]Gt# [phone] BC C PARAPSILOS Not detected Normal NOT DETECTD [facility] Comment on above: Performed By: #### L 770.22847 ####[facility] [id number] [place], [place] [address]Gs# [phone] BC C TROPICALIS Not detected Normal NOT DETECTD [facility] Comment on above: Performed By: #### L 770. ####[facility] [id number] [place], [place] [address]Si# [phone] BC E COLI Not detected Normal NOT DETECTD [facility] Comment on above: Performed By: #### L 770. ####[facility] JCQUKQRWHD9122 [place], [place] [address]Gm# [phone] BC ENTER CLOACA Not detected Normal NOT DETECTD [facility] Comment on above: Performed By: #### L 770.19054 ####[facility] KHDBWPEFQA5205 [place], [place] [address]Yy# [phone] BC ENTEROCOCCUS Not detected Normal NOT DETECTD [facility] Comment on above: Performed By: #### L 770.54513 ####[facility] KNUQCBUDQJ5709 [place], [place] [address]Bi# [phone] BC H.INFLUENZA Not detected Normal NOT DETECTD [facility] Comment on above: Performed By: #### L 770.75259 ####[facility] QROQOJZSYV1945 [place], [place] [address]Uu# [phone] BC KLEB OXYTOCA Not detected Normal NOT DETECTD [facility] Comment on above: Performed By: #### L 770.21442 ####[facility] ZBNYOPSQVJ2158 [place], [place] [address]Qh# [phone] BC KLEB PNEUMO Not detected Normal NOT DETECTD [facility] Comment on above: Performed By: #### L 770.85600 ####[facility] EMKIECUFLT1940 [place], [place] [address]Wx# [phone] BC KPC Not detected Normal NOT DETECTD [facility] Comment on above: Performed By: #### L 770.44358 ####[facility] N[address]BT[address] [place] [address]Qy# [phone] BC LISTERIA Not detected Normal NOT DETECTD [facility] Comment on above: Performed By: #### L 770.26423 ####[facility] K[address]HRVO[address] [place] [address]Sz# [phone] BC MEC A Not detected Normal NOT DETECTD [facility] Comment on above: Performed By: #### L 770.77387 ####[facility] [id number] [place] [address]Wl# [phone] BC N MENINGITID Not detected Normal NOT DETECTD [facility] Comment on above: Performed By: #### L 770.65867 ####[facility] FRRVMQQPTQ6[address] [place] [address]Lt# [phone] BC PROTEUS SP. Not detected Normal NOT DETECTD [facility] Comment on above: Performed By: #### L 770.68429 ####[facility] VLWCEGDHXQ[address] [place] [address]Ii# [phone] BC PSEUDO AERUG Not detected Normal NOT DETECTD [facility] Comment on above: Performed By: #### L 770.58544 ####[facility] AUDAPBILBR[address] [place] [address]Ls# [phone] BC SERRATIA MAR Not detected Normal NOT DETECTD [facility] Comment on above: Performed By: #### L 770.92520 ####[facility] XIKMZRFUXS8641 [place], [place] [address]Gc# [phone] BC STAPH AUREUS Not detected Normal NOT DETECTD [facility] Comment on above: Performed By: #### L 770.25021 ####[facility] EKGUUDUNCD5498 [place], [place] [address]Tq# [phone] BC STAPH SPE. Not detected Normal NOT DETECTD [facility] Comment on above: Performed By: #### L 770.14254 ####[facility] ZSMAWUMNRL7858 [place], [place] [address]Rq# [phone] BC STREP PNEUMO Not detected Normal NOT DETECTD [facility] Comment on above: Performed By: #### L 770.29309 ####[facility] GJHGLYLOBY3202 [place], [place] [address]Iu# [phone] BC STREPTOCOCCU Not detected Normal NOT DETECTD [facility] Comment on above: Performed By: #### L 770.12845 ####[facility] BKGALWTADY5528 [place], [place] [address]Qt# [phone] BC VAN A/B Not detected Normal NOT DETECTD [facility] Comment on above: Performed By: #### L 770.49214 ####[facility] SNXBLCEXSL4411 [place], [place] [address]Vb# [phone] ENTEROBACEAE SP Not detected Normal NOT DETECTD [facility] Comment on above: Performed By: #### L 770.07603 ####[facility] YWXDPIPXHX1324 [place], [place] [address]Hz# [phone] BLOOD CULTUREon 06-04-2021 Bacteria identified Cx Nom (Bld) INITIAL POSITIVE BLOOD CULTURE RESULTS CALLED TO MICHELLE RN/8M AND READ BACK BY AT 201206/02/21 BY NANI CARLISLE ORGANISM 1: MICROCOCCUS SP./RELATED GENERA ID TO FOLLOW NOT VIABLE FOR SENSITIVITY Normal [facility] Comment on above: Order Comment: Campu s: M Performed By: #### M 050.74742 ####[facility] XFARVUSLXV8149 [place], [place] [address]Zb# [phone] GLUCOSE METERon 06-04-2021 Glucose [Mass/Vol] 161 mg/dL High 70-115 [facility] Glucose [Mass/Vol] 79 mg/dL Normal 70-115 [facility] Glucose [Mass/Vol] 236 mg/dL High 70-115 [facility] [place] Glucose [Mass/Vol] 273 mg/dL High 70-115 [facility] [place] Glucose [Mass/Vol] 221 mg/dL High 70-115 [facility] [place] Glucose [Mass/Vol] 305 mg/dL High 70-115 [facility] [place] PROG IMSon 06-04-2021 PROG IMS Normal [facility] Progress Note-Hospitalist Normal [facility] PROG.ENDOon 06-04-2021 PROG.ENDO Normal [facility] Progress Note-Endocrinology Normal [facility] BMPon 06-03-2021 Anion gap [Moles/Vol] 9 mmol/L Normal 5-16 [facility] Comment on above: Order Comment: Campu s: MMinimal Draw: Y Performed By: #### L 500.04619, L500.22939, L500.03451 ####[facility] LIPMZMSFKI1139 [place], [place] [address]Ka# [phone] Calcium [Mass/Vol] 8.5 mg/dL Normal 8.5-10.5 [facility] Comment on above: Order Comment: Campu s: MMinimal Draw: Y Result Comment: NOTE NEW NORMAL RANGE DUE TO REAGENT CHANGE Performed By: #### L 500.24726, L500.43580, L500.48397 ####[facility] AQADPXNFCF5510 [place], [place] [address]Df# [phone] Chloride [Moles/Vol] 109 mmol/L High 98-107 [facility] Comment on above: Order Comment: Campu s: MMinimal Draw: Y Performed By: #### L 500.83625, L500.17455, L500.63719 ####[facility] XPYXUJFABD1738 [place], [place] [address]Bd# [phone] CO2 [Moles/Vol] 23.0 mmol/L Normal 21-32 [facility] Comment on above: Order Comment: Campu s: MMinimal Draw: Y Performed By: #### L 500.58811, L500.15699, L500.87525 ####[facility] ZASLKRRZJI8716 [place], [place] [address]Og# [phone] Creatinine [Mass/Vol] 0.70 mg/dL Normal 0.510-0.950 [facility] Comment on above: Order Comment: Campu s: MMinimal Draw: Y Result Comment: Cleopatra ents receiving either N-Acetylcysteine (NAC) orMetamizole prior to venipuncture, may have falsely depressedresults. Performed By: #### L 500.23464, L500.96888, L500.65888 ####[facility] TBXWLTCLKO4539 [place], [place] [address]Jk# [phone] Glucose [Mass/Vol] 303 mg/dL High 70-100 [facility] Comment on above: Order Comment: Campu s: MMinimal Draw: Y Result Comment: 70-1 00- Normal Fasting; 100-125 Impaired Fasting; greaterthan 126 on more than one result- Diabetes. ADA guidelines.Results may be falsely elevated after the administration ofSulfapyridine.Results may be falsely depressed after the administration ofSulfasalazine. Performed By: #### L 500.33815, L500.53230, L500.02803 ####[facility] [id number] [place], [place] [address]Lf# [phone] Potassium [Moles/Vol] 4.4 mmol/L Normal 3.5-5.1 [facility] Comment on above: Order Comment: Campu s: MMinimal Draw: Y Result Comment: Slig ht Hemolysis, Result may be affected. Performed By: #### L 500.84092, L500.65635, L500.54563 ####[facility] [id number] [place], [place] [address]Oe# [phone] Sodium [Moles/Vol] 141 mmol/L Normal 136-145 [facility] Comment on above: Order Comment: Campu s: MMinimal Draw: Y Performed By: #### L 500.24262, L500.55104, L500.54065 ####[facility] [id number] [place], [place] [address]Ed# [phone] Urea nitrogen [Mass/Vol] 16 mg/dL [facility] 7-[facility] Comment on above: Order Comment: Campu s: MMinimal Draw: Y Performed By: #### L 500.63227, L500.55204, L500.24137 ####[facility] [id number] [place], [place] [address]Ej# [phone] Urea nitrogen/Creatinine [Mass ratio] 23 mg/mg Normal 15-24 [facility] Comment on above: Order Comment: Campu s: MMinimal Draw: Y Performed By: #### L 500.65630, L500.90205, L500.85106 ####[facility] [id number] [place], [place] [address]Ir# [phone] CBC W/DIFFon 06-03-2021 BASO ABS 0.00 K/CU MM Normal 0-0.2 [facility] Comment on above: Order Comment: Campu s: MMinimal Draw: Y Performed By: #### L 200.16371 ####[facility] [id number] [place] [address]Yh# [phone] Basophils/100 WBC (Bld) 0.2 % Normal 0-2 [facility] [place] Comment on above: Order Comment: Campu s: MMinimal Draw: Y Performed By: #### L 200.26985 ####[facility] [id number] [place] [address] 397[address]Mb# [phone] EOS ABS 0.00 K/CU MM Normal 0-0.5 [facility] [place] Comment on above: Order Comment: Campu s: MMinimal Draw: Y Performed By: #### L 200.73302 ####[facility] [id number] [place] [address] 49[address]Wr# [phone] Eosinophils/100 WBC (Bld) 0.3 % Normal 0-5 [facility] Comment on above: Order Comment: Campu s: MMinimal Draw: Y Performed By: #### L 200.14012 ####[facility] [id number] [place] [address]Ie# [phone] Erythrocyte distribution width (RBC) [Ratio] 15.1 % High 11-14.5 [facility] Comment on above: Order Comment: Campu s: MMinimal Draw: Y Performed By: #### L 200.57899 ####[place] [address]Ph# [phone] Hematocrit (Bld) [Volume fraction] 29.3 % Low 35.0-47.0 [facility] Comment on above: Order Comment: Campu s: MMinimal Draw: Y Performed By: #### L 200.78511 ####[facility] WDWJXJSAMC[address] [place], [place] [address]Ph# [phone] Hemoglobin (Bld) [Mass/Vol] 9.4 g/dL Low 11.5-15.5 [facility] [place] Comment on above: Order Comment: Campu s: MMinimal Draw: Y Result Comment: Repe ated and verified. Performed By: #### L 200.88293 ####[facility] [id number] [place], [place] [address]Ph# [phone] IMMATR GRAN ABS 0.10 K/CU MM Normal Less than 2 [facility] [place] Comment on above: Order Comment: Campu s: MMinimal Draw: Y Performed By: #### L 200.76654 ####[facility] [id number] [place], [place] [address]Ph# [phone] IMMATURE GRAN % 0.8 % Normal Less than 2 [facility] [place] Comment on above: Order Comment: Campu s: MMinimal Draw: Y Performed By: #### L 200.01500 ####[facility] [id number] [place], [place] [address]Ph# [phone] LYMPH ABS 2.90 K/CU MM Normal 0.9-4.4 [facility] [place] Comment on above: Order Comment: Campu s: MMinimal Draw: Y Performed By: #### L 200.64932 ####[facility] [id number] [place], [place] [address]Ph# [phone] Lymphocytes/100 WBC (Bld) 25.7 % Normal 20-40 [facility] Comment on above: Order Comment: Campu s: MMinimal Draw: Y Performed By: #### L 200.44752 ####[place] [address]Ph# [phone] MCHC (RBC) [Mass/Vol] 32.1 g/dL Normal 32.0-36.0 [facility] [place] Comment on above: Order Comment: Campu s: MMinimal Draw: Y Performed By: #### L 200.84147 ####[place] [address]Ph# [phone] MCV (RBC) [Entitic vol] 87.5 fL Normal 80.0-99.0 [facility] Comment on above: Order Comment: Campu s: MMinimal Draw: Y Performed By: #### L 200.19207 ####[place] [address]Ph# [phone] MONO ABS 0.50 K/CU MM Normal 0.1-1.1 [facility] Comment on above: Order Comment: Campu s: MMinimal Draw: Y Performed By: #### L 200.13885 ####[facility] [id number] [place], [place] [address]Ph# [phone] Monocytes/100 WBC (Bld) 4.3 % Normal 2-10 [facility] Comment on above: Order Comment: Campu s: MMinimal Draw: Y Performed By: #### L 200.87656 ####[facility] [id number] [place], [place] [address]Ph# [phone] NEUTROPHIL ABS 7.70 K/CU MM Normal 2.0-8.3 [facility] Comment on above: Order Comment: Campu s: MMinimal Draw: Y Performed By: #### L 200.13907 ####[facility] RKUYFOMFKH5901 [place], [place] [address]Xc# [phone] Neutrophils/100 WBC (Bld) 68.7 % Normal 45-75 [facility] Comment on above: Order Comment: Campu s: MMinimal Draw: Y Performed By: #### L 200.90237 ####[facility] XBGEVDHJWR5020 [place], [place] [address]Kj# [phone] Nucleated RBC/100 WBC (Bld) [Ratio] 0.0 % Normal Less than 1 [facility] Comment on above: Order Comment: Campu s: MMinimal Draw: Y Performed By: #### L 200.78714 ####[facility] [id number] [place] [address] 16798Ob# [phone] Platelet mean volume (Bld) [Entitic vol] 11.6 fL Normal 9.4-12.4 [facility] Comment on above: Order Comment: Campu s: MMinimal Draw: Y Performed By: #### L 200.11361 ####[facility] NZDKQFQGJK[address] [place] [address] 17[address]Bo# [phone] PLT 166 K/CU MM Normal 150-450 [facility] Comment on above: Order Comment: Campu s: MMinimal Draw: Y Performed By: #### L 200.72239 ####[facility] AFQKPQYACA5535 [place], [place] [address]Ju# [phone] RBC 3.35 M/CU MM Low 3.90-5.30 [facility] Comment on above: Order Comment: Campu s: MMinimal Draw: Y Performed By: #### L 200.10850 ####[facility] [id number] [place] [address] 6[address]Fr# [phone] WBC 11.3 K/CUMM High 4.5-11.0 [facility] Comment on above: Order Comment: Campu s: MMinimal Draw: Y Performed By: #### L 200.61984 ####[facility] ZMVISSHPXG2816 [place], [place] [address]Et# [phone] GFR ESTon 06-03-2021 IF AMER Greater than 60 [facility] Comment on above: Order Comment: Campu s: MMinimal Draw: Y Performed By: #### L 500.38860, L500.03496, L500.95799 ####[facility] WEAURYCVLI2754 [place], [place] [address]Ac# [phone] IF non-AFR AMER Greater than 60 [facility] Comment on above: Order Comment: Campu s: MMinimal Draw: Y Performed By: #### L 500.73632, L500.49410, L500.90598 ####[facility] SBDWMAUTIN3495 [place], [place] [address]Vk# [phone] GLUCOSE METERon 06-03-2021 Glucose [Mass/Vol] 227 mg/dL High 70-115 [facility] Glucose [Mass/Vol] 182 mg/dL High 70-115 [facility] Glucose [Mass/Vol] 299 mg/dL High 70-115 [facility] PROG IMSon 06-03-2021 PROG IMS Normal [facility] Progress Note-Hospitalist Normal [facility] PROG.ENDOon 06-03-2021 PROG.ENDO Normal [facility] Progress Note-Endocrinology Normal [facility] TSHon 06-03-2021 TSH 6.118 UIU/ML High 0.358-3.740 [facility] Comment on above: Order Comment: Campu s: MMinimal Draw: Y Result Comment: 3rd generation ultra sensitive TSH Performed By: #### L 500.89236, L500.90677, L500.81437 ####[facility] RRYDWHCFFE2077 [place], [place] [address]Sp# [phone] CONS.ENDOon 06-02-[address] [facility] CONSULTATION-ENDOCRINO LOGY Normal [facility] [place] GLUCOSE METERon 06-02-2021 Glucose [Mass/Vol] 372 mg/dL High 70-115 [facility] [place] Glucose [Mass/Vol] 255 mg/dL High 70-115 [facility] [place] Glucose [Mass/Vol] 210 mg/dL High 70-115 [facility] Glucose [Mass/Vol] 205 mg/dL High 70-115 [facility] [place] PROG IMSon 06-02-2021 PROG IMS Normal [facility] [place] Progress Note-Hospitalist Normal [facility] BMPon 06-01-2021 Anion gap [Moles/Vol] 23 mmol/L High 5-16 [facility] Comment on above: Order Comment: Campu s: M Performed By: #### L 500.75682, L500.73712 ####[facility] QYWOCOXOUR8041 [place], [place] [address]Jc# [phone] Calcium [Mass/Vol] 9.4 mg/dL Normal 8.5-10.5 [facility] Comment on above: Order Comment: Campu s: M Result Comment: NOTE NEW NORMAL RANGE DUE TO REAGENT CHANGE Performed By: #### L 500.50802, L500.32704 ####[facility] VTRQRZGSTC5032 [place], [place] [address]De# [phone] Chloride [Moles/Vol] 103 mmol/L Normal 98-107 [facility] Comment on above: Order Comment: Campu s: M Performed By: #### L 500.37725, L500.70720 ####[facility] GIBKWOMROZ2005 [place], [place] [address]Ny# [phone] CO2 [Moles/Vol] 11.0 mmol/L Low 21-32 [facility] Comment on above: Order Comment: Campu s: M Result Comment: Delt a check reviewed Performed By: #### L 500.94358, L500.71237 ####[facility] PYXUBZJSMV3853 [place], [place] [address]Sx# [phone] Creatinine [Mass/Vol] 0.71 mg/dL Normal 0.510-0.950 [facility] [place] Comment on above: Order Comment: Zach s: M Result Comment: Cleopatra ents receiving either N-Acetylcysteine (NAC) orMetamizole prior to venipuncture, may have falsely depressedresults. Performed By: #### L 500.12513, L500.57644 ####[facility] IMTPBFAKLE6106 [place], [place] [address]Lw# [phone] Glucose [Mass/Vol] 447 mg/dL High 70-100 [facility] Comment on above: Order Comment: Zach s: M Result Comment: 70-1 00- Normal Fasting; 100-125 Impaired Fasting; greaterthan 126 on more than one result- Diabetes. ADA guidelines.Results may be falsely elevated after the administration ofSulfapyridine.Results may be falsely depressed after the administration ofSulfasalazine. Performed By: #### L 500.01710, L500.23002 ####[facility] MWIZGZUKMD7625 [place], [place] [address]Pi# [phone] Potassium [Moles/Vol] 5.2 mmol/L High 3.5-5.1 [facility] Comment on above: Order Comment: Zach s: M Result Comment: Slig ht Hemolysis, Result may be affected. Performed By: #### L 500.20822, L500.18193 ####[facility] OOLUJPLIQC9624 [place], [place] [address]Bq# [phone] Sodium [Moles/Vol] 137 mmol/L Normal 136-145 [facility] Comment on above: Order Comment: Zach s: M Performed By: #### L 500.74603, L500.93709 ####[facility] XGPLOVQIOF4917 [place], [place] [address]Ub# [phone] Urea nitrogen [Mass/Vol] 20 mg/dL Normal 7-26 [facility] Comment on above: Order Comment: Zach s: M Result Comment: Slig ht Hemolysis, Result may be affected. Performed By: #### L 500.65722, L500.87151 ####[facility] XDBHMOQLKY8984 [place], [place] [address]Kz# [phone] Urea nitrogen/Creatinine [Mass ratio] 28 mg/mg High 15-24 [facility] Comment on above: Order Comment: Campu s: M Performed By: #### L 500.88154, L500.22907 ####[facility] RZSGCBWJGH1134 [place], [place] [address]Ki# [phone] Stacie 06-01-2021 EMERGENCY PHYSICIAN REPORT This is a preliminary report only, as the practitioner review and authentication has not occurred. Normal [facility] ER [facility] GFR ESTon 06-01-2021 IF AMER Greater than 60 [facility] Comment on above: Order Comment: Campu s: M Performed By: #### L 500.55470, L500.94618 ####[facility] JHZMGYSMUI3675 [place], [place] [address]Fc# [phone] IF non-AFR AMER Greater than 60 [facility] Comment on above: Order Comment: Campu s: M Performed By: #### L 500.07426, L500.53635 ####[facility] CZKBSAIJAU4589 [place], [place] [address]Pm# [phone] GLUCOSE METERon 06-01-2021 Glucose [Mass/Vol] 384 mg/dL High 70-115 [facility] [place] Glucose [Mass/Vol] 322 mg/dL High 70-115 [facility] Glucose [Mass/Vol] 550 mg/dL Critically high 70-115 [facility] GLUCOSE METER > 600 Critically high 70-115 [facility] Glucose [Mass/Vol] 450 mg/dL High 70-115 [facility] HP.IMS.ADMon 06-01-2021 Admission-H&P Normal [facility] HP.IMS.ADM Normal [facility] LACTIC ACIDon 06-01-2021 Lactate [Moles/Vol] 3.82 mmol/L High 0.40-2.00 [facility] Comment on above: Performed By: #### L 550.13997 ####[facility] USHGZNTAOK9284 [place], [place] [address]Vq# [phone] PROCAL Aon 06-01-2021 PROCAL A 2.89 NG/ML High 0-0.50 [facility] Comment on above: Order Comment: Zach [...] results obtained fromthe [employer] platform vs the [employer] platform(previous).NOTE NEW NORMAL RANGE DUE TO REAGENT CHANGE Performed By: #### L 550.41817 ####[facility] VCJTBXDIMB9119 [place], [place] [address]Ii# [phone] PROG IMSon 06-01-2021 PROG IMS Normal [facility] Progress Note-Hospitalist Normal [facility] UR DRUG ABUSEon 06-01-2021 UR AMPH Negative Normal Wzruht=4294 [facility] Comment on above: Performed By: #### L 600.39626 ####[facility] LCHVBAHYEK3833 [place], [place] [address]Dz# [phone] UR JARON Negative Normal Xtslgq=359 [facility] Comment on above: Performed By: #### L 600.50324 ####[facility] BIOENEHYTU2481 [place], [place] [address]Lb# [phone] UR TAMRA Negative Normal Txfrpi=858 [facility] Comment on above: Performed By: #### L 600.18428 ####[facility] CPFLVKKIOO1198 [place], [place] [address]Hc# [phone] UR MONTY/THC Positive Normal Cutoff=50 [facility] Comment on above: Performed By: #### L 600.73468 ####[facility] KWKENZIATL5098 [place], [place] [address]Ht# [phone] UR ALISHA Negative Normal Igrkvi=926 [facility] Comment on above: Performed By: #### L 600.43819 ####[facility] [id number] [place] [address]Mc# [phone] UR OPIAT Positive Normal Eexbrd=645 [facility] Comment on above: Performed By: #### L 600.13309 ####[address] [address]We# [phone] UR PCP Negative Normal Cutoff=25 [facility] Comment on above: Performed By: #### L 600.80632 ####[address] [address]Sz# [phone] DRAB COMMENT Normal [facility] Comment on above: Result Comment: [employer] results are qualitative, providing apreliminary analytical result. A positive result for anassay should be confirmed by another nonimmunological,reference method. A negative result indicates that theassay material is either not present, or present at levelsbelow the cutoff threshold for the analytical method range(AMR) validation. Performed By: #### L 600.64969 ####[facility] [id number] [place] [address]Wx# [phone] ABGPon 05-31-2021 ABG BE -8.6 MML/L Low -2.0-2.0 [facility] Comment on above: Order Comment: Zach Ricks Performed By: #### L 100.24494 ####[facility] AHZTMBREEN[address] [place] [address]Le# [phone] ABG COHBA 0.4 % Normal 0-10 [facility] Comment on above: Order Comment: Campu s: M Performed By: #### L 100.75538 ####[facility] XOXDXUWSWX6665 [place], [place] [address]Ze# [phone] ABG MET 0.3 % Low 0.4-1.5 [facility] [place] Comment on above: Order Comment: Campu s: M Performed By: #### L 100.71009 ####[facility] EIDKYGKYWP0085 [place], [place] [address]Nb# [phone] ABG O2 CAPACITY 17.9 mL/dL Normal [facility] Comment on above: Order Comment: Campu s: M Performed By: #### L 100.14095 ####[facility] BUXXAXCBEE4658 [place], [place] [address]Yr# [phone] ABG O2 CONTENT 17.2 mL/dL Normal 15.7-21.6 [facility] Comment on above: Order Comment: Campu s: M Performed By: #### L 100.63354 ####[facility] CBQNZZTXQA8151 [place], [place] [address]Ab# [phone] ABG O2HB SAT 93.9 % Normal 90-100 [facility] [place] Comment on above: Order Comment: Campu s: M Performed By: #### L 100.05101 ####[facility] CNHRRSUUTW9570 [place], [place] [address]Qr# [phone] ABG PCO2 34.2 MMHG Low 35-45 [facility] [place] Comment on above: Order Comment: Campu s: M Performed By: #### L 100.31719 ####[facility] BGTBJJZGNQ5580 [place], [place] [address]Nm# [phone] ABG PH 7.31 Low 7.35-7.45 [facility] [place] Comment on above: Order Comment: Campu s: M Performed By: #### L 100.29281 ####[facility] ATTWPSAPZL5443 [place], [place] [address]Qc# [phone] ABG PO2 85.7 MMHG Normal 80-100 [facility] Comment on above: Order Comment: Campu s: M Performed By: #### L 100.28115 ####[facility] HPFXGCYSXT2945 [place], [place] [address]Xy# [phone] ABG REDUCED HGB 5.4 % High 0-5 [facility] Comment on above: Order Comment: Campu s: M Performed By: #### L 100.93669 ####[facility] [id number] [place] [address]Jh# [phone] GEM TEST Positive Normal [facility] Comment on above: Order Comment: Campu s: M Performed By: #### L 100.76188 ####[facility] MQIFHIVSEX[address] [place] [address]Gk# [phone] Body temperature 98.6 [degF] Normal [facility] Comment on above: Order Comment: Campu s: M Performed By: #### L 100.40389 ####[facility] [id number] [place] [address]Qn# [phone] EQUIPMENT ROOM AIR Normal [facility] Comment on above: Order Comment: Campu s: M Performed By: #### L 100.80829 ####[facility] QXQAYGXFFZ0559[address] [place] [address]Xw# [phone] FIO2 21 % Normal [facility] Comment on above: Order Comment: Campu s: M Performed By: #### L 100.17828 ####[facility] JOTQLDKVGP4059[address] [place] [address]Kz# [phone] HCO3 (Bld) [Moles/Vol] 16.8 mmol/L Low 22-26 M [facility] Comment on above: Order Comment: Campu s: M Performed By: #### L 100.88217 ####[facility] MKKHXGDZES1144 [place], [place] [address]Nb# [phone] Hemoglobin (Bld) [Mass/Vol] 13.0 g/dL Normal 10-16 [facility] Comment on above: Order Comment: Campu s: M Performed By: #### L 100.95971 ####[facility] SRQEMIJDOZ[address]80[address] [place] [address]Ko# [phone] SAMPLE SITE L RADIAL Normal [facility] [place] Comment on above: Order Comment: Campu s: M Performed By: #### L .98937 ####[facility] TPWNIZYYVV357[address] [place] [address]Au# [phone] SAMPLE TYPE ARTERIAL Normal [facility] Comment on above: Order Comment: Campu s: M Performed By: #### L .28738 ####[facility] IBYSCSVQAP[address] [place] [address]Za# [phone] ABGPEGLAon 05-31-2021 ABG BE -10.1 MML/L Low -2.0-2.0 [facility] Comment on above: Order Comment: Campu s: M Performed By: #### L .68969 ####[facility] UJZCPJVNOJ7[address] [place] [address]Qh# [phone] ABG COHBA 0.4 % Normal 0-10 [facility] [place] Comment on above: Order Comment: Campu s: M Performed By: #### L 100.11118 ####[facility] EYZXFSYVMT7669 [place], [place] [address]Wt# [phone] ABG GLU 317.0 MG/DL High 60-80 [facility] Comment on above: Order Comment: Campu s: M Performed By: #### L 100.45793 ####[facility] NJPBBOWJYO0911[address] [place] [address]Qi# [phone] ABG MET 0.3 % Low 0.4-1.5 [facility] Comment on above: Order Comment: Campu s: M Performed By: #### L .03633 ####[facility] XEYVFUPGBD4572 [place], [place] [address]Sf# [phone] ABG O2 CAPACITY 15.6 mL/dL Normal [facility] [place] Comment on above: Order Comment: Campu s: M Performed By: #### L 100.95132 ####[facility] VNUWXBKLVM5695 [place], [place] [address]Sh# [phone] ABG O2 CONTENT 11.1 mL/dL Low 15.7-21.6 [facility] Comment on above: Order Comment: Campu s: M Performed By: #### L 100.64001 ####[facility] CSHUGQUMTZ8270 [place], [place] [address]Us# [phone] ABG O2HB SAT 69.7 % Critically low 90-100 [facility] Comment on above: Order Comment: Benjiu s: M Performed By: #### L 100.57152 ####[facility]13[address] [place], [place] [address]Sp# [phone] ABG PCO2 19.0 MMHG Critically low 35-45 [facility] Comment on above: Order Comment: Benjiu s: M Result Comment: CRIT ICAL VALUE(S) VERIFIED AND HAND DELIVERED TO AND READBACK BY DR CORTES AT 1829 05/31/21 BY ADAM CHOE Performed By: #### L 100.56614 ####[place] [address] [place], [place] [address]Iz# [phone] ABG PH 7.43 Normal 7.35-7.45 [facility] Comment on above: Order Comment: Benjiu s: M Performed By: #### L 100.35208 ####[facility] LZFPAOOTXY6959 [place], [place] [address]Vy# [phone] ABG PO2 37.4 MMHG Critically low 80-100 [facility] Comment on above: Order Comment: Benjiu s: M Performed By: #### L 100.49922 ####[facility] XPFYWWXQBW2341 [place], [place] [address]Xd# [phone] ABG REDUCED HGB 29.6 % Critically high 0-5 [facility] Comment on above: Order Comment: Benjiu s: M Performed By: #### L 100.33739 ####[facility] CCUUBDIKAJ5401 [place], [place] [address]Ii# [phone] GEM TEST N/A Normal [facility] Comment on above: Order Comment: Campu s: M Performed By: #### L 100.11040 ####[facility] OBKCWDRAPS[address] [place] [address]Aq# [phone] Body temperature 98.6 [degF] Normal [facility] Comment on above: Order Comment: Campu s: M Performed By: #### L 100.86818 ####[address] [address]Mf# [phone] EQUIPMENT ROOM AIR Normal [facility] Comment on above: Order Comment: Campu s: M Performed By: #### L 100.62373 ####[address] [address]As# [phone] HCO3 (Bld) [Moles/Vol] 12.2 mmol/L Low 22-26 M [facility] Comment on above: Order Comment: Campu s: M Performed By: #### L 100.71669 ####[address] [address]Cn# [phone] Hemoglobin (Bld) [Mass/Vol] 11.3 g/dL Normal 10-16 [facility] Comment on above: Order Comment: Campu s: M Performed By: #### L 100.07272 ####[facility] [address]YTMIKIZW[address] [place] [address]Dp# [phone] IONIZED CA 0.95 MMOL/L Low 1.13-1.32 [facility] Comment on above: Order Comment: Campu s: M Performed By: #### L 100.91814 ####[facility] SXSFOPLRYB[address] [place] [address]Do# [phone] LACTATE BLOOD 2.01 MMOL/L High 0.40-2.00 [facility] Comment on above: Order Comment: Campu s: M Performed By: #### L 100.47969 ####[facility] XOVFKEZOCZ1564 [place], [place] [address]Fs# [phone] Potassium [Moles/Vol] 2.7 mmol/L Critically low 3.5-5.0 [facility] Comment on above: Order Comment: Campu s: M Performed By: #### L 100.92336 ####[facility] [id number] [place], [place] [address]Er# [phone] RESP. RATE 30 Normal [facility] Comment on above: Order Comment: Campu s: M Performed By: #### L 100.05535 ####[facility] [id number] [place] [address]Ok# [phone] SAMPLE SITE R BRACHIAL Normal [facility] Comment on above: Order Comment: Campu s: M Performed By: #### L .84683 ####[facility] [id number] [place] [address] 369[address]Qt# [phone] SAMPLE TYPE ARTERIAL Normal [facility] Comment on above: Order Comment: Campu s: M Performed By: #### L 100.17039 ####[facility] [id number] [place] [address]Aa# [phone] Sodium [Moles/Vol] 140 mmol/L Normal 136-148 [facility] Comment on above: Order Comment: Campu s: M Performed By: #### L 100.87390 ####[facility] [id number] [place] [address] 119[address]Sl# [phone] BMPon 05-31-2021 Anion gap [Moles/Vol] 16 mmol/L Normal 5-16 [facility] Comment on above: Order Comment: Campu s: M Performed By: #### L 500.53038, L500.72228, L500.49041, L500.07391 ####[facility] [id number] [place], [place] [address]Qv# [phone] Calcium [Mass/Vol] 9.9 mg/dL Normal 8.5-10.5 [facility] Comment on above: Order Comment: Campu s: M Result Comment: NOTE NEW NORMAL RANGE DUE TO REAGENT CHANGE Performed By: #### L 500.33986, L500.91242, L500.50372, L500.79522 ####[facility] NFWAHFLWHQ0344 [place], [place] [address]El# [phone] Chloride [Moles/Vol] 105 mmol/L Normal 98-107 [facility] Comment on above: Order Comment: Campu s: M Performed By: #### L 500.24367, L500.50973, L500.09629, L500.10822 ####[facility] TARPBSIVPE6707 [place], [place] [address]Or# [phone] CO2 [Moles/Vol] 16.0 mmol/L Low 21-32 [facility] Comment on above: Order Comment: Campu s: M Performed By: #### L 500.64535, L500.16955, L500.33315, L500.65252 ####[facility] WLPGKNUTTX6442 [place], [place] [address]Tb# [phone] Creatinine [Mass/Vol] 0.63 mg/dL Normal 0.510-0.950 [facility] Comment on above: Order Comment: Campu s: M Result Comment: Cleopatra ents receiving either N-Acetylcysteine (NAC) orMetamizole prior to venipuncture, may have falsely depressedresults. Performed By: #### L 500.39601, L500.59596, L500.50587, L500.83745 ####[facility] RUTWFWCPYG3639 [place], [place] [address]Gi# [phone] Glucose [Mass/Vol] 422 mg/dL High 70-100 [facility] Comment on above: Order Comment: Campu s: M Result Comment: 70-1 00- Normal Fasting; 100-125 Impaired Fasting; greaterthan 126 on more than one result- Diabetes. ADA guidelines.Results may be falsely elevated after the administration ofSulfapyridine.Results may be falsely depressed after the administration ofSulfasalazine. Performed By: #### L 500.09983, L500.19095, L500.32942, L500.73239 ####[facility] MLLAXGZBVP6673 [place], [place] [address]Ff# [phone] Potassium [Moles/Vol] 4.4 mmol/L Normal 3.5-5.1 [facility] Comment on above: Order Comment: Campu s: M Result Comment: Slig ht Hemolysis, Result may be affected. Performed By: #### L 500.90898, L500.83492, L500.66961, L500.66075 ####[facility] DXQPPEAWNV2516 [place], [place] [address]Dw# [phone] Sodium [Moles/Vol] 137 mmol/L Normal 136-145 [facility] Comment on above: Order Comment: Campu s: M Performed By: #### L 500.69801, L500.72081, L500.54169, L500.69803 ####[facility] NWVYFPDUMH0499 [place], [place] [address]Vc# [phone] Urea nitrogen [Mass/Vol] 17 mg/dL Normal 7-26 [facility] Comment on above: Order Comment: Campu s: M Performed By: #### L 500.02620, L500.10892, L500.59891, L500.21880 ####[facility] CZWJUQNUSW4278 [place], [place] [address]Hx# [phone] Urea nitrogen/Creatinine [Mass ratio] 27 mg/mg High 15-24 [facility] Comment on above: Order Comment: Campu s: M Performed By: #### L 500.63413, L500.83461, L500.87671, L500.55177 ####[facility] ALQHVEEMBS0458 [place], [place] [address]Fo# [phone] CBC W/DIFFon 05-31-2021 BASO ABS 0.00 K/CU MM Normal 0-0.2 [facility] Comment on above: Order Comment: Campu s: M Performed By: #### L 200.72896 ####[facility] UCTJHQTMSJ3568 [place], [place] [address]Uh# [phone] Basophils/100 WBC (Bld) 0.2 % Normal 0-2 [facility] Comment on above: Order Comment: Campu s: M Performed By: #### L 200.24850 ####[facility] TSKFGXGJFG[address] [place] [address]Nk# [phone] EOS ABS 0.00 K/CU MM Normal 0-0.5 [facility] Comment on above: Order Comment: Campu s: M Performed By: #### L 200.68886 ####[place] [address]Ph# [phone] Eosinophils/100 WBC (Bld) 0.0 % Normal 0-5 [facility] Comment on above: Order Comment: Campu s: M Performed By: #### L 200.83689 ####[place] [address]Ph# [phone] Erythrocyte distribution width (RBC) [Ratio] 14.1 % Normal 11-14.5 [facility] Comment on above: Order Comment: Campu s: M Performed By: #### L 200.25964 ####[address] [address]Fm# [phone] Hematocrit (Bld) [Volume fraction] 39.5 % Normal 35.0-47.0 [facility] Comment on above: Order Comment: Campu s: M Performed By: #### L 200.53531 ####[facility] [id number] [place], [place] [address]Ph# [phone] Hemoglobin (Bld) [Mass/Vol] 13.1 g/dL Normal 11.5-15.5 [facility] Comment on above: Order Comment: Campu s: M Performed By: #### L 200.02042 ####[facility] CMRBBURUES[address] [place], [place] [address]Ph# [phone] IMMATR GRAN ABS 0.20 K/CU MM Normal Less than 2 [facility] Comment on above: Order Comment: Campu s: M Performed By: #### L 200.19725 ####[facility] [id number] [place], [place] [address]Ph# [phone] IMMATURE GRAN % 0.8 % Normal Less than 2 [facility] Comment on above: Order Comment: Campu s: M Performed By: #### L 200.88875 ####[address]# [phone] LYMPH ABS 1.10 K/CU MM Normal 0.9-4.4 [facility] Comment on above: Order Comment: Campu s: M Performed By: #### L 200.79035 ####[place] [address]Ph# [phone] Lymphocytes/100 WBC (Bld) 4.7 % Low 20-40 [facility] Comment on above: Order Comment: Campu s: M Performed By: #### L 200.10625 ####[place] [address]Ph# [phone] MCHC (RBC) [Mass/Vol] 33.2 g/dL Normal 32.0-36.0 [facility] Comment on above: Order Comment: Campu s: M Performed By: #### L 200.76071 ####[place] [address]Ph# [phone] MCV (RBC) [Entitic vol] 84.9 fL Normal 80.0-99.0 [facility] Comment on above: Order Comment: Campu s: M Performed By: #### L 200.24282 ####[facility] [id number] [place], [place] [address]Ph# [phone] MONO ABS 0.40 K/CU MM Normal 0.1-1.1 [facility] Comment on above: Order Comment: Campu s: M Performed By: #### L 200.70912 ####[facility] TBIWBFLTIE0426 [place], [place] [address]Qc# [phone] Monocytes/100 WBC (Bld) 1.8 % Low 2-10 [facility] Comment on above: Order Comment: Campu s: M Performed By: #### L 200.93328 ####[facility] OVFELPKITH[address] [place] [address]Qp# [phone] NEUTROPHIL ABS 20.90 K/CU MM High 2.0-8.3 [facility] Comment on above: Order Comment: Campu s: M Performed By: #### L 200.05189 ####[facility] [id number] [place], [place] [address]Ph# [phone] Neutrophils/100 WBC (Bld) 92.5 % High 45-75 [facility] Comment on above: Order Comment: Campu s: M Performed By: #### L 200.98369 ####[facility] [id number] [place], [place] [address]Ph# [phone] Nucleated RBC/100 WBC (Bld) [Ratio] 0.0 % Normal Less than 1 [facility] Comment on above: Order Comment: Campu s: M Performed By: #### L 200.38880 ####[facility] MMAVQQXHPH[address] [place] [address]Ro# [phone] Platelet mean volume (Bld) [Entitic vol] 12.4 fL Normal 9.4-12.4 [facility] Comment on above: Order Comment: Campu s: M Performed By: #### L 200.59585 ####[facility] EYYWDKKIVD[address] [place] [address]Mc# [phone] PLT 211 K/CU MM Normal 150-450 [facility] Comment on above: Order Comment: Campu s: M Performed By: #### L 200.29924 ####[facility] [id number] [place] [address]Bo# [phone] RBC 4.65 M/CU MM Normal 3.90-5.30 [facility] Comment on above: Order Comment: Campu s: M Performed By: #### L 200.27882 ####[facility] MNHZPLBGCY9217 [place], [place] [address]Ne# [phone] WBC 22.6 K/CUMM High 4.5-11.0 [facility] Comment on above: Order Comment: Campu s: M Performed By: #### L 200.42080 ####[facility] DMRNLJVVGW9777 [place], [place] [address]Ko# [phone] CT ABD/PEL W IV CONTRAST ONL Yon 05-31-2021 CT ABD/PEL W IV CONTRAST ONLY Normal [facility] GFR ESTon 05-31-2021 IF AMER Greater than 60 Normal [facility] Comment on above: Order Comment: Campu s: M Performed By: #### L 500.35392, L500.75328, L500.75647, L500.83485 ####[facility] HOFVVTGRND5634 [place], [place] [address]Zq# [phone] IF non-AFR AMER Greater than 60 Normal [facility] Comment on above: Order Comment: Campu s: M Performed By: #### L 500.82846, L500.26223, L500.42022, L500.23527 ####[facility] BMICTSQAFY1188 [place], [place] [address]Th# [phone] GLUCOSE METERon 05-31-2021 Glucose [Mass/Vol] 405 mg/dL High 70-115 [facility] LACTATE BLOODon 05-31-2021 LACTATE BLOOD 3.32 MMOL/L High 0.40-2.00 [facility] Comment on above: Order Comment: Campu s: M Performed By: #### L 550.99512 ####[facility] OYPTEVFBJW6013 [place], [place] [address]Xg# [phone] LIPASEon 05-31-2021 Lipase [Catalytic activity/Vol] 18 U/L Normal 12-60 [facility] Comment on above: Order Comment: Campu s: M Result Comment: NOTE NEW NORMAL RANGE DUE TO REAGENT CHANGE Performed By: #### L 500.54640, L500.27360, L500.00700, L500.95215 ####[facility] YBPUOEFGEV1908 [place], [place] [address]Io# [phone] LIVERon 05-31-2021 Albumin [Mass/Vol] 4.3 g/dL Normal 3.2-5.0 [facility] Comment on above: Order Comment: Campu s: M Performed By: #### L 500.37465, L500.47400, L500.58969, L500.10215 ####[facility] LHWLYHDBMH2949 [place], [place] [address]Dx# [phone] Albumin/Globulin [Mass ratio] 1.4 {ratio} Normal 0.8-2.0 [facility] Comment on above: Order Comment: Campu s: M Performed By: #### L 500.82107, L500.50012, L500.78884, L500.27435 ####[facility] NZWHNPHUQR5956 [place], [place] [address]Vv# [phone] ALK PHOS 89 U/L Normal 45-117 [facility] Comment on above: Order Comment: Campu s: M Performed By: #### L 500.30902, L500.47430, L500.39015, L500.31564 ####[facility] YYEFUMQYXK5078 [place], [place] [address]Tq# [phone] ALT [Catalytic activity/Vol] 11 U/L Low 13-61 [facility] Comment on above: Order Comment: Campu s: M Result Comment: RESU LTS MAY BE FALSELY DEPRESSED AFTER THE ADMINISTRATION OFSULFASALAZINE AND/OR SULFAPYRIDINE. Performed By: #### L 500.42338, L500.01461, L500.13367, L500.37785 ####[facility] XZLFZNBTNB5678 [place], [place] [address]Kw# [phone] AST [Catalytic activity/Vol] 16 U/L Normal 8-34 [facility] Comment on above: Order Comment: Campu s: M Result Comment: RESU LTS MAY BE FALSELY DEPRESSED AFTER THE ADMINISTRATION OFSULFASALAZINE AND/OR SULFAPYRIDINE. Performed By: #### L 500.32703, L500.49839, L500.18161, L500.28981 ####[facility] XLRSTTFMQB3682 [place], [place] [address]Ts# [phone] BILI DIRECT 0.3 MG/DL Normal 0.00-0.36 [facility] Comment on above: Order Comment: Campu s: M Result Comment: NOTE NEW NORMAL RANGE DUE TO REAGENT CHANGE Performed By: #### L 500.53992, L500.80040, L500.46839, L500.94464 ####[facility] RPSRJPUVVP6211 [place], [place] [address]Mw# [phone] BILI TOTAL 1.00 MG/DL Normal 0.2-1.0 [facility] Comment on above: Order Comment: Campu s: M Performed By: #### L 500.45092, L500.76831, L500.29831, L500.22114 ####[facility] IWGWSAWVHD5568 [place], [place] [address]Vk# [phone] Globulin (S) [Mass/Vol] 3.0 g/dL Normal 2.2-4.2 [facility] Comment on above: Order Comment: Campu s: M Performed By: #### L 500.96717, L500.75867, L500.94651, L500.93825 ####[facility] VGCRQNEXMK7379 [place], [place] [address]Sp# [phone] Protein [Mass/Vol] 7.3 g/dL Normal 6.0-8.5 [facility] Comment on above: Order Comment: Campu s: M Performed By: #### L 500.39098, L500.09463, L500.41823, L500.14670 ####[facility] BAGBOHTFLW5867 [place], [place] [address]Pm# [phone] PORTABLE CHESTon 05-31-[address] [facility] [id number] 05-31-2021 SARS-CoV-2 (COVID-19) RNA DANIEL+probe Ql (Unsp spec) Negative Invalid Interpretation Code Negative [facility] Comment on above: Order Comment: Campu s: M Result Comment: RESU LTS CALLED TO MillicentSathish ZINA, UA/EDAT 205305/31/21 BY JHOANA PALMERNegative results do not preclude SARS-CoV-2 infection andshould not be used as the sole basis for treatment or otherpatient management decisions. Negative results must becombined with clinical observation, patient history, andepidemiological information.This test was performed by PCR. Performed By: #### L 770.47479 ####[facility] XQYRKJGDJV6646 [place], [place] [address]Xk# [phone] UA COMPLETEon 05-31-2021 Color (U) Straw Normal [facility] Comment on above: Order Comment: Campu s: M Performed By: #### L 600.02956 ####[facility] BVQDMUYCZD[address] [place] [address]Zz# [phone] Glucose (U) [Mass/Vol] 500 mg/dL Normal NORMAL [facility] Comment on above: Order Comment: Campu s: M Performed By: #### L 600.17430 ####[facility] HBHTWJKFCB9115 [place], [place] [address]Lq# [phone] UA APPEARANCE Clear Normal CLEAR [facility] Comment on above: Order Comment: Campu s: M Performed By: #### L 600.84763 ####[facility] FDJWSVXWGO0593 [place], [place] [address]Gh# [phone] UA BILIRUBIN Negative Normal NEGATIVE [facility] Comment on above: Order Comment: Campu s: M Performed By: #### L 600.96628 ####[facility] LHIBEJSSSJ5188 [place], [place] [address]Wf# [phone] UA BLOOD Negative Normal NEGATIVE [facility] Comment on above: Order Comment: Campu s: M Performed By: #### L 600.59797 ####[facility] IHGGJBIIXL1639 [place], [place] [address]Eu# [phone] UA KETONE 80 Normal NEGATIVE [facility] Comment on above: Order Comment: Campu s: M Performed By: #### L 600.74331 ####[facility] YJVIOFTZTP4774 [place], [place] [address]Vl# [phone] UA LK ESTERASE Negative Normal NEGATIVE [facility] Comment on above: Order Comment: Campu s: M Performed By: #### L 600.99609 ####[facility] OJTTCVEOFR[address] [place] [address]Lu# [phone] UA NITRITE Negative Normal NEGATIVE [facility] Comment on above: Order Comment: Campu s: M Performed By: #### L 600.74893 ####[facility] [address]ZLMDSCSRO[address] [place] [address]Fl# [phone] UA PH 6.0 Normal 5-6 [facility] Comment on above: Order Comment: Campu s: M Performed By: #### L 600.39343 ####[facility] CZEBOLTTNE[address] [place] [address]Tf# [phone] UA PROTEIN Negative Normal NEGATIVE [facility] Comment on above: Order Comment: Campu s: M Performed By: #### L 600.21099 ####[facility] [address]TGZLYOLHP[address] [place] [address]Bb# [phone] UA SPEC GRAV 1.030 Normal 1.005-1.030 [facility] Comment on above: Order Comment: Campu s: M Performed By: #### L 600.17797 ####[facility] [id number] [place] [address]Oq# [phone] UA UROBILINOGEN Negative Normal NORMAL [facility] Comment on above: Order Comment: Campu s: M Performed By: #### L 600.91003 ####[facility] ZGCXVYYUJN8139[address] [place] [address]Ix# [phone] BMPon 04-15-2021 Anion gap [Moles/Vol] 14 mmol/L Normal 5-16 [facility] Comment on above: Order Comment: Campu s: M Performed By: #### L 500.41645, L500.12327, L500.48512, L500.57011 ####[facility] HGNCEZUKJV9139 [place], [place] [address]Hx# [phone] Calcium [Mass/Vol] 9.9 mg/dL Normal 8.5-10.5 [facility] Comment on above: Order Comment: Campu s: M Result Comment: NOTE NEW NORMAL RANGE DUE TO REAGENT CHANGE Performed By: #### L 500.09918, L500.65529, L500.10407, L500.28574 ####[facility] MXRFAWARQK5184 [place], [place] [address]Gw# [phone] Chloride [Moles/Vol] 96 mmol/L Low 98-107 [facility] Comment on above: Order Comment: Campu s: M Performed By: #### L 500.55333, L500.58996, L500.53662, L500.75014 ####[facility] QWSLMWHZIL5992 [place], [place] [address]Ov# [phone] CO2 [Moles/Vol] 22.0 mmol/L Normal 21-32 [facility] Comment on above: Order Comment: Campu s: M Performed By: #### L 500.29913, L500.42680, L500.01832, L500.74342 ####[facility] XVZWEHZLEY4044 [place], [place] [address]Vv# [phone] Creatinine [Mass/Vol] 0.68 mg/dL Normal 0.510-0.950 [facility] Comment on above: Order Comment: Campu s: M Result Comment: Cleopatra ents receiving either N-Acetylcysteine (NAC) orMetamizole prior to venipuncture, may have falsely depressedresults. Performed By: #### L 500.13960, L500.69257, L500.06006, L500.57906 ####[facility] DYNNYFCFRM9713 [place], [place] [address]Jq# [phone] Glucose [Mass/Vol] 306 mg/dL High 70-100 [facility] Comment on above: Order Comment: Campu s: M Result Comment: 70-1 00- Normal Fasting; 100-125 Impaired Fasting; greaterthan 126 on more than one result- Diabetes. ADA guidelines.Results may be falsely elevated after the administration ofSulfapyridine.Results may be falsely depressed after the administration ofSulfasalazine. Performed By: #### L 500.40085, L500.19315, L500.46118, L500.53555 ####[facility] JDIVZCFLXA2458 [place], [place] [address]Ix# [phone] Potassium [Moles/Vol] 3.3 mmol/L Low 3.5-5.1 [facility] Comment on above: Order Comment: Campu s: M Performed By: #### L 500.39206, L500.13383, L500.07079, L500.10898 ####[facility] DVJJMGREFF4705 [place], [place] [address]Wx# [phone] Sodium [Moles/Vol] 133 mmol/L Low 136-145 [facility] Comment on above: Order Comment: Campu s: M Performed By: #### L 500.73436, L500.73500, L500.96627, L500.14719 ####[facility] WOTXLURKTC[address] [place] [address]Us# [phone] Urea nitrogen [Mass/Vol] 21 mg/dL Normal 7-26 [facility] Comment on above: Order Comment: Campu s: M Performed By: #### L 500.40792, L500.78503, L500.34218, L500.63940 ####[facility] VZIWHQXPQM9828 [place], [place] [address]Ih# [phone] Urea nitrogen/Creatinine [Mass ratio] 31 mg/mg High 15-24 [facility] Comment on above: Order Comment: Campu s: M Performed By: #### L 500.48132, L500.82464, L500.45749, L500.27289 ####[facility] PTYRKYVQDF2286 [place], [place] [address]Qj# [phone] Stacie 04-15-2021 EMERGENCY PHYSICIAN REPORT This is a preliminary report only, as the practitioner review and authentication has not occurred. Normal [facility] ER Normal [facility] EMERGENCY PHYSICIAN REPORT This is a preliminary report only, as the practitioner review and authentication has not occurred. Normal [facility] ER [facility] G[facility] ESTon 04-15-2021 IF AMER Greater than 60 [facility] Comment on above: Order Comment: Campu s: M Performed By: #### L 500.52162, L500.35382, L500.43697, L500.40280 ####[facility] PLEMUGFGWV1600 [place], [place] [address]Ap# [phone] IF non-AFR AMER Greater than 60 [facility] Comment on above: Order Comment: Campu s: M Performed By: #### L 500.87654, L500.10362, L500.76778, L500.70168 ####[facility] ANLSEFSNHN9231 [place], [place] [address]Rp# [phone] GLUCOSE METERon 04-15-2021 Glucose [Mass/Vol] 305 mg/dL High 70-115 [facility] Glucose [Mass/Vol] 197 mg/dL High 70-115 [facility] LACTATE BLOODon 04-15-2021 LACTATE BLOOD 2.16 MMOL/L High 0.40-2.00 [facility] Comment on above: Order Comment: Campu s: M Performed By: #### L 550.40635 ####[facility] HHNPAIBMDN1650 [place], [place] [address]Hk# [phone] LIPASEon 04-15-2021 Lipase [Catalytic activity/Vol] 19 U/L Normal 12-60 [facility] Comment on above: Order Comment: Campu s: M Result Comment: NOTE NEW NORMAL RANGE DUE TO REAGENT CHANGE Performed By: #### L 500.19688, L500.25344, L500.99189, L500.72582 ####[facility] TFQSMFYOQI7596 [place], [place] [address]Zd# [phone] LIVERon 04-15-2021 Albumin [Mass/Vol] 4.2 g/dL Normal 3.2-5.0 [facility] Comment on above: Order Comment: Campu s: M Performed By: #### L 500.02079, L500.19138, L500.95879, L500.34024 ####[facility] FEXTPSCQEM3953 [place], [place] [address]Yc# [phone] Albumin/Globulin [Mass ratio] 1.3 {ratio} Normal 0.8-2.0 [facility] Comment on above: Order Comment: Campu s: M Performed By: #### L 500.84334, L500.60626, L500.75826, L500.84749 ####[facility] BRTBVSXRZO6879 [place], [place] [address]Ai# [phone] ALK PHOS 102 U/L Normal 45-117 [facility] Comment on above: Order Comment: Campu s: M Performed By: #### L 500.88782, L500.47002, L500.41335, L500.72853 ####[facility] GMXZIMAUNK1062 [place], [place] [address]Gr# [phone] ALT [Catalytic activity/Vol] 11 U/L Low 13-61 [facility] Comment on above: Order Comment: Campu s: M Result Comment: RESU LTS MAY BE FALSELY DEPRESSED AFTER THE ADMINISTRATION OFSULFASALAZINE AND/OR SULFAPYRIDINE. Performed By: #### L 500.78511, L500.78452, L500.83094, L500.87197 ####[facility] MDKDDTSRYA8181 [place], [place] [address]Cy# [phone] AST [Catalytic activity/Vol] 13 U/L Normal 8-34 [facility] Comment on above: Order Comment: Campu s: M Result Comment: RESU LTS MAY BE FALSELY DEPRESSED AFTER THE ADMINISTRATION OFSULFASALAZINE AND/OR SULFAPYRIDINE. Performed By: #### L 500.04469, L500.15152, L500.56441, L500.03567 ####[facility] TJGSUHLWKQ0498 [place], [place] [address]Ye# [phone] BILI DIRECT 0.3 MG/DL Normal 0.00-0.36 [facility] Comment on above: Order Comment: Campu s: M Result Comment: NOTE NEW NORMAL RANGE DUE TO REAGENT CHANGE Performed By: #### L 500.68947, L500.03653, L500.60530, L500.63853 ####[facility] [id number] [place], [place] [address]Lb# [phone] BILI TOTAL 1.10 MG/DL High 0.2-1.0 [facility] [place] Comment on above: Order Comment: Campu s: M Performed By: #### L 500.38580, L500.99823, L500.45719, L500.59943 ####[facility] [id number] [place], [place] [address]Ky# [phone] Globulin (S) [Mass/Vol] 3.3 g/dL Normal 2.2-4.2 [facility] [place] Comment on above: Order Comment: Campu s: M Performed By: #### L 500.25659, L500.34545, L500.58792, L500.01296 ####[facility] [id number] [place], [place] [address]Jp# [phone] Protein [Mass/Vol] 7.5 g/dL Normal 6.0-8.5 [facility] [place] Comment on above: Order Comment: Campu s: M Performed By: #### L 500.76291, L500.22804, L500.77288, L500.39745 ####[facility] [id number] [place], [place] [address]Si# [phone] UA COMPLETEon 04-15-2021 Color (U) Yellow Normal [facility] [place] Comment on above: Order Comment: Campu s: M Performed By: #### L 600.44234 ####[facility] [id number] [place] [address]Sc# [phone] Glucose (U) [Mass/Vol] 500 mg/dL Normal NORMAL Me [facility] [place] Comment on above: Order Comment: Campu s: M Performed By: #### L 600.48610 ####[facility] [id number] [place] [address]Ze# [phone] Mucus Ql (Urine sed) TRACE Normal NEGATIVE [facility] [place] Comment on above: Order Comment: Campu s: M Performed By: #### L 600.89162 ####[address] [address]Om# [phone] SQUAMOUS EPIS 2 EPI/HPF Normal 0-[facility] on above: Order Comment: Campu s: M Performed By: #### L 600.24347 ####[address] [address]Nc# [phone] UA APPEARANCE Clear [facility] Comment on above: Order Comment: Campu s: M Performed By: #### L 600.96499 ####[address] [address]Zc# [phone] UA BACTERIA TRACE Normal NONE [facility] Comment on above: Order Comment: Campu s: M Performed By: #### L 600.89561 ####[facility] [id number] [place] [address]Pd# [phone] UA BILIRUBIN Negative Normal NEGATIVE [facility] Comment on above: Order Comment: Campu s: M Performed By: #### L 600.19599 ####[facility] [id number] [place] [address]Ie# [phone] UA BLOOD Negative Normal NEGATIVE [facility] Comment on above: Order Comment: Campu s: M Performed By: #### L 600.89847 ####[facility] [id number] [place], [place] [address]Nj# [phone] UA KETONE 80 Normal NEGATIVE [facility] Comment on above: Order Comment: Campu s: M Performed By: #### L 600.97586 ####[facility] [id number] [place] [address]Co# [phone] UA LK ESTERASE Negative Normal NEGATIVE [facility] Comment on above: Order Comment: Campu s: M Performed By: #### L 600.63605 ####[facility] [id number] [place] [address] 360[address]Vi# [phone] UA NITRITE Negative Normal NEGATIVE [facility] Comment on above: Order Comment: Campu s: M Performed By: #### L 600.31168 ####[facility] [id number] [place] [address] 401[address]Lw# [phone] UA PH 6.0 Normal 5-6 [facility] Comment on above: Order Comment: Campu s: M Performed By: #### L 600.48905 ####[facility] [id number] [place] [address]Pj# [phone] UA PROTEIN [address] [facility] Comment on above: Order Comment: Campu s: M Performed By: #### L 600.09027 ####[facility] [id number] [place] [address] 34[address]St# [phone] UA RBC 1 RBC/HPF Normal 0-3 [facility] Comment on above: Order Comment: Campu s: M Performed By: #### L 600.84893 ####[facility] [id number] [place] [address]Wm# [phone] UA SPEC GRAV 1.017 Normal 1.005-1.030 [facility] Comment on above: Order Comment: Campu s: M Performed By: #### L 600.90008 ####[facility] [id number] [place] [address] 49[address]Dn# [phone] UA UROBILINOGEN Negative Normal NORMAL [facility] Comment on above: Order Comment: Campu s: M Performed By: #### L 600.79851 ####[facility] [id number] [place], [place] [address]Yw# [phone] UA WBC 6 WBC/HPF High 0-5 [facility] Comment on above: Order Comment: Campu s: M Performed By: #### L 600.60018 ####[facility] [id number] [place] [address] 04648Db# [phone] BMPon 03-17-2021 Anion gap [Moles/Vol] 16 mmol/L Normal 5-16 [facility] Comment on above: Order Comment: Campu s: M Performed By: #### L 500.05145, L500.71228 ####[facility] [id number] [place], [place] [address]Uw# [phone] Calcium [Mass/Vol] 10.0 mg/dL Normal 8.5-10.5 [facility] Comment on above: Order Comment: Campu s: M Result Comment: NOTE NEW NORMAL RANGE DUE TO REAGENT CHANGE Performed By: #### L 500.07617, L500.77227 ####[facility] [id number] [place], [place] [address]Bv# [phone] Chloride [Moles/Vol] 102 mmol/L Normal 98-107 [facility] Comment on above: Order Comment: Campu s: M Performed By: #### L 500.92385, L500.22113 ####[facility] [id number] [place], [place] [address]Om# [phone] CO2 [Moles/Vol] 16.0 mmol/L Low 21-32 [facility] Comment on above: Order Comment: Campu s: M Performed By: #### L 500.56554, L500.26138 ####[facility] [id number] [place], [place] [address]Qx# [phone] Creatinine [Mass/Vol] 0.71 mg/dL Normal 0.510-0.950 [facility] Comment on above: Order Comment: Campu s: M Result Comment: Cleopatra ents receiving either N-Acetylcysteine (NAC) orMetamizole prior to venipuncture, may have falsely depressedresults. Performed By: #### L 500.58079, L500.68141 ####[facility] [id number] [place], [place] [address]Rz# [phone] Glucose [Mass/Vol] 418 mg/dL High 70-100 [facility] Comment on above: Order Comment: Campu s: M Result Comment: 70-1 00- Normal Fasting; 100-125 Impaired Fasting; greaterthan 126 on more than one result- Diabetes. ADA guidelines.Results may be falsely elevated after the administration ofSulfapyridine.Results may be falsely depressed after the administration ofSulfasalazine. Performed By: #### L 500.23222, L500.60727 ####[facility] [id number] [place], [place] [address]Ex# [phone] Potassium [Moles/Vol] 4.2 mmol/L Normal 3.5-5.1 [facility] Comment on above: Order Comment: Campu s: M Result Comment: Slig ht Hemolysis, Result may be affected. Performed By: #### L 500.56973, L500.03881 ####[facility] [id number] [place], [place] [address]Fv# [phone] Sodium [Moles/Vol] 134 mmol/L Low 136-145 [facility] Comment on above: Order Comment: Campu s: M Performed By: #### L 500.75290, L500.12837 ####[facility] [id number] [place], [place] [address]Ts# [phone] Urea nitrogen [Mass/Vol] 25 mg/dL Normal 7-26 [facility] Comment on above: Order Comment: Campu s: M Performed By: #### L 500.20514, L500.38596 ####[facility] [id number] [place], [place] [address]Ff# [phone] Urea nitrogen/Creatinine [Mass ratio] 35 mg/mg High 15-24 [facility] Comment on above: Order Comment: Campu s: M Performed By: #### L 500.43554, L500.24370 ####[facility] [id number] [place] [address] 235[address]Zb# [phone] CBC W/DIFFon 03-17-2021 BASO ABS 0.00 K/CU MM Normal 0-0.2 [facility] Comment on above: Order Comment: Campu s: M Performed By: #### L 200.59081 ####[facility] [id number] [place] [address] 9[address]Ec# [phone] Basophils/100 WBC (Bld) 0.1 % Normal 0-2 [facility] Comment on above: Order Comment: Campu s: M Performed By: #### L 200.05629 ####[address] [address]Jq# [phone] EOS ABS 0.00 K/CU MM Normal 0-0.5 [facility] Comment on above: Order Comment: Campu s: M Performed By: #### L 200.79627 ####[facility] [id number] [place] [address]86[address]Dv# [phone] Eosinophils/100 WBC (Bld) 0.0 % Normal 0-5 [facility] Comment on above: Order Comment: Campu s: M Performed By: #### L 200.31629 ####[facility] [id number] [place] [address]Xh# [phone] Erythrocyte distribution width (RBC) [Ratio] 14.6 % High 11-14.5 [facility] Comment on above: Order Comment: Campu s: M Performed By: #### L 200.26743 ####[facility] [id number] [place] [address]Jg# [phone] Hematocrit (Bld) [Volume fraction] 37.2 % Normal 35.0-47.0 [facility] Comment on above: Order Comment: Campu s: M Performed By: #### L 200.31276 ####[facility] [id number] [place], [place] [address]Xp# [phone] Hemoglobin (Bld) [Mass/Vol] 12.4 g/dL Normal 11.5-15.5 [facility] Comment on above: Order Comment: Campu s: M Performed By: #### L 200.18665 ####[place] [address]Ph# [phone] IMMATR GRAN ABS 0.10 K/CU MM Normal Less than 2 [facility] Comment on above: Order Comment: Campu s: M Performed By: #### L 200.08557 ####[place] [address]Ph# [phone] IMMATURE GRAN % 0.8 % Normal Less than 2 [facility] Comment on above: Order Comment: Campu s: M Performed By: #### L 200.33208 ####[place] [address]Ph# [phone] LYMPH ABS 0.80 K/CU MM Low 0.9-4.4 [facility] Comment on above: Order Comment: Campu s: M Performed By: #### L 200.22429 ####[place] [address]Ph# [phone] Lymphocytes/100 WBC (Bld) 4.5 % Low 20-40 [facility] Comment on above: Order Comment: Campu s: M Performed By: #### L 200.54412 ####[facility] [id number] [place], [place] [address]Ph# [phone] MCHC (RBC) [Mass/Vol] 33.3 g/dL Normal 32.0-36.0 [facility] Comment on above: Order Comment: Campu s: M Performed By: #### L 200.13302 ####[facility] [id number] [place], [place] [address]Ph# [phone] MCV (RBC) [Entitic vol] 83.2 fL Normal 80.0-99.0 [facility] Comment on above: Order Comment: Campu s: M Performed By: #### L 200.58853 ####[facility] [id number] [place], [place] [address]Zz# [phone] MONO ABS 0.30 K/CU MM Normal 0.1-1.1 [facility] Comment on above: Order Comment: Campu s: M Performed By: #### L 200.91202 ####[facility] [id number] [place], [place] [address]Ph# [phone] Monocytes/100 WBC (Bld) 1.7 % Low 2-10 [facility] Comment on above: Order Comment: Campu s: M Performed By: #### L 200.61276 ####[address] [address]Sk# [phone] NEUTROPHIL ABS 16.70 K/CU MM High 2.0-8.3 [facility] Comment on above: Order Comment: Campu s: M Performed By: #### L 200.03494 ####[facility] [id number] [place], [place] [address]Ph# [phone] Neutrophils/100 WBC (Bld) 92.9 % High 45-75 [facility] Comment on above: Order Comment: Campu s: M Performed By: #### L 200.76101 ####[facility] [id number] [place], [place] [address]Ph# [phone] Nucleated RBC/100 WBC (Bld) [Ratio] 0.0 % Normal Less than 1 [facility] Comment on above: Order Comment: Campu s: M Performed By: #### L 200.36275 ####[facility] [id number] [place] [address] 268[address]Ud# [phone] Platelet mean volume (Bld) [Entitic vol] 12.9 fL High 9.4-12.4 [facility] Comment on above: Order Comment: Campu s: M Performed By: #### L 200.05700 ####[facility] [id number] [place], [place] [address]Oc# [phone] PLT 181 K/CU MM Normal 150-450 [facility] Comment on above: Order Comment: Campu s: M Performed By: #### L 200.84541 ####[facility] [id number] [place], [place] [address]Zh# [phone] RBC 4.47 M/CU MM Normal 3.90-5.30 [facility] Comment on above: Order Comment: Campu s: M Performed By: #### L 200.07833 ####[facility] [id number] [place], [place] [address]Fa# [phone] WBC 17.9 K/CUMM High 4.5-11.0 [facility] Comment on above: Order Comment: Campu s: M Performed By: #### L 200.27788 ####[facility] [id number] [place], [place] [address]Jt# [phone] Stacie 03-17-2021 EMERGENCY PHYSICIAN REPORT This is a preliminary report only, as the practitioner review and authentication has not occurred. [facility] EMERGENCY PHYSICIAN REPORT This is a preliminary report only, as the practitioner review and authentication has not occurred. [facility] GFR ESTon 03-17-2021 IF AMER Greater than 60 [facility] Comment on above: Order Comment: Campu s: M Performed By: #### L 500.92795, L500.70143 ####[facility] [id number] [place], [place] [address]Un# [phone] IF non-AFR AMER Greater than 60 [facility] Comment on above: Order Comment: Campu s: M Performed By: #### L 500.47461, L500.01613 ####[facility] [id number] [place], [place] [address]Lr# [phone] GLUCOSE METERon 03-17-2021 Glucose [Mass/Vol] 333 mg/dL High 70-115 [facility] Glucose [Mass/Vol] 360 mg/dL High 70-115 [facility] VBG PHon 03-17-2021 VBG PH 7.40 MMHG Normal 7.31-7.41 [facility] Comment on above: Order Comment: Zach s: M Performed By: #### L 100.98923 ####[facility] [id number] [place], [place] [address]Oa# [phone] A1C Hgbon 02-24-2017 Hemoglobin A1c/Hemoglobin.total mass fraction (Bld) 10.8 % High 4.0-6.0 Replaced By [facility] Comment on above: Performed By: #### G FR ####[facility], [address] [place] [address] Basic Metabolic Panelon 01-28 BUN/Creatinine Ratio 21.4 mg/mg Normal 10.0-22.0 [facility] Comment on above: Order Comment: CBN Performed By: #### G FR ####[facility], [address] [place] [address] 16828 Creatinine 0.56 mg/dL Normal 0.50-1.20 Replaced By [facility] Comment on above: Order Comment: CBN Performed By: #### G FR ####[address] [address] Calcium 7.8 mg/dL Low 8.4-10.1 Replaced By [facility] Comment on above: Order Comment: CBN Performed By: #### G FR ####[facility], [facility]0 [address] [place] [address]16[address] Chloride 107 mmol/L Normal 98-110 Replaced By [facility] Comment on above: Order Comment: CBN Performed By: #### G FR ####[facility], [facility]0 [address] [place] [address]115 Electrolyte Balance 10.0 mEq/L Normal 4.0-15.0 [facility] Comment on above: Order Comment: CBN Performed By: #### G FR ####[facility], [address] [place] [address] 02380 Sodium 138 mmol/L Normal 136-145 Replaced By [facility] Comment on above: Order Comment: CBN Performed By: #### G FR ####[facility], [address] [place] [address] 29018 Glucose mass conc 289 mg/dL High 70-110 Replaced By [facility] Comment on above: Order Comment: CBN Performed By: #### G FR ####[facility], [address] [place] [address] 44563 CO2 21 mmol/L Low 22-32 Replaced By [facility] Comment on above: Order Comment: CBN Performed By: #### G FR ####[facility], [address] [place] [address] 40348 Urea nitrogen 12.0 mg/dL Normal 8.0-22.0 Replaced By [facility] Comment on above: Order Comment: CBN Performed By: #### G FR ####[facility], [address] [place] [address] 97052 Potassium molar conc 3.7 mmol/L Normal 3.5-5.0 [facility] Comment on above: Order Comment: CBN Performed By: #### G FR ####[facility], [address] [place] [address]8558 CBCon 02-24-2017 Basophils/100 WBC Auto (Bld) 0.4 % Normal 0.0-2.5 Replaced By [facility] Comment on above: Order Comment: CBN Performed By: #### G FR ####[facility], [address] [place] [address] 28096 Eosinophils/100 leukocytes 1.5 % Normal 0.0-6.0 Replaced By [facility] Comment on above: Order Comment: CBN Performed By: #### G FR ####[facility], [address] [place] [address] 09851 Erythrocyte distribution width Auto Ratio (RBC) 15.1 % Normal 11.5-15.5 Replaced By [facility] Comment on above: Order Comment: CBN Performed By: #### G FR ####[facility], [address] [place] [address] 01772 Erythrocytes (RBC) 4.19 10 6/mcL Normal 4.10-5.30 [facility] Comment on above: Order Comment: CBN Performed By: #### G FR ####[facility], [address] [place] [address]776 Hematocrit (HCT) 35.9 % Normal 34.0-46.0 Replaced By [facility] Comment on above: Order Comment: CBN Performed By: #### G FR ####[facility], [address] [place] [address] 20448 Hemoglobin mass conc (Bld) 11.9 G/dL Low 12.0-16.0 Replaced By [facility] Comment on above: Order Comment: CBN Performed By: #### G FR ####[address] [address] Lymphocytes/100 leukocytes 36.7 % Normal 20.0-40.0 Replaced By [facility] Comment on above: Order Comment: CBN Performed By: #### G FR ####[facility], [address] [place] [address] 48612 MCH 28.5 pg Normal 27.0-33.0 Replaced By [facility] Comment on above: Order Comment: CBN Performed By: #### G FR ####[facility], [address] [place] [address] 69046 MCHC mass conc (RBC) 33.2 G/dL Normal 32.0-36.0 [facility] Comment on above: Order Comment: CBN Performed By: #### G FR ####[address] [address] MCV 85.8 fL Normal 80.0-99.0 Replaced By [facility] Comment on above: Order Comment: CBN Performed By: #### G FR ####[address] [address] Monocytes/100 leukocytes 4.9 % Normal 2.0-13.0 Replaced By [facility] Comment on above: Order Comment: CBN Performed By: #### G FR ####[facility], [address] [place] [address] 10944 Neutrophils 4.40 10 3/mcL Normal 1.90-7.90 Replaced By [facility] Comment on above: Order Comment: CBN Performed By: #### G FR ####[facility], [address] [place] [address] 81144 Neutrophils/100 WBC Auto (Bld) 56.5 % Normal 50.0-75.0 Replaced By [facility] Comment on above: Order Comment: CBN Performed By: #### G FR ####[address] [address] Platelet mean volume (PMV) 8.0 fL Normal 6.6-10.5 Replaced By [facility] Comment on above: Order Comment: CBN Performed By: #### G FR ####[address] [address] Platelets 301 10 3/mcL Normal 150-450 Replaced By [facility] Comment on above: Order Comment: CBN Performed By: #### G FR ####[address] [address] WBC (Leukocytes) 7.70 10 3/mcL Normal 4.50-10.80 [facility] Comment on above: Order Comment: CBN Performed By: #### G FR ####[address] [address] Depart Summaryon 02-24-2017 Depart Summary Normal Replaced By [facility] Discharge Note-Physicianon 0 02-24-2017 Discharge Note-Physician Normal Replaced By [facility] Glomerular Filtration Rate E stimateon 02-24-2017 eGFR (non-black) mL/min/{1.73_m2} Normal [facility] Comment on above: Order Comment: CBN Result Comment: Davidson kowalski mean GFR = 116 mL/min/1.73 sq.m. for ages 20-29 years. Chronic Kidney Disease: Less than 60 mL/min/1.73 square metersEnd Stage Renal Disease: Less than 15 mL/min/1.73 square meters Performed By: #### G FR ####[facility], [address] [place], [place] [address] History and Physicalon 02-24 History and Physical Normal [facility] Inpatient Patient Summaryon 02-24-2017 Inpatient Patient Summary Normal Replaced By [facility] Troponin Ion 02-24-2017 Troponin I.cardiac mass conc ng/mL Normal 0.000-0.040 Replaced By [facility] Comment on above: Result Comment: Trop onin I reference ranges (05/05/14): 0.00-0.040 ng/mL Negative and non-diagnostic. >0.040 ng/mL Consistent with cardiac damage, increased clinical risk and possibility of myocardial infarction. Serial measurements, a rise & fall in test results, clinical history, appropriate symptoms and/or ECG changes may help assess possibility of NC. *Other non-acute coronary syndrome conditions such as CHF, myocarditis, pulmonary emboli, sepsis and cardiac surgery could result in myocardial damage and increased troponin levels. NOTE: This is a new and more precise Troponin assay started 05-05-14 Performed By: #### C BC ####[place] [id number] B-Hydroxybutyrateon 02-24-20 17 B-Hydroxybutyrate 51.30 mg/dL High 0.20-2.81 [facility] Comment on above: Performed By: #### C BC ####[place] [id number] Basic Metabolic Panelon 01-27 BUN/Creatinine Ratio 32.1 mg/mg High 10.0-22.0 [facility] Comment on above: Performed By: #### C BC ####[place] [address] Creatinine 0.53 mg/dL Normal 0.50-1.20 Replaced By [facility] Comment on above: Performed By: #### C BC ####[place] [address] Calcium 8.0 mg/dL Low 8.4-10.1 Replaced By [facility] Comment on above: Performed By: #### C BC ####[facility], [address] [place] [address] 98377 Chloride 109 mmol/L Normal 98-110 Replaced By [facility] Comment on above: Performed By: #### C BC ####[facility], [address] [place] [address] Electrolyte Balance 15.0 mEq/L Normal 4.0-15.0 [facility] Comment on above: Performed By: #### C BC ####[facility], [address] [place] [address] 89227 Sodium 141 mmol/L Normal 136-145 Replaced By [facility] Comment on above: Performed By: #### C BC ####[facility], [address] [place] [address] 97767 CO2 17 mmol/L Low 22-32 Replaced By [facility] Comment on above: Performed By: #### C BC ####[facility], [address] [place] [address] 31947 Glucose mass conc 160 mg/dL High 70-110 Replaced By [facility] Comment on above: Performed By: #### C BC ####[facility], [address] [place] [address] 51304 Urea nitrogen 17.0 mg/dL Normal 8.0-22.0 Replaced By [facility] Comment on above: Performed By: #### C BC ####[facility], [address] [place] [address] 12532 Potassium molar conc 3.9 mmol/L Normal 3.5-5.0 [facility] Comment on above: Performed By: #### C BC ####[facility], [address] [place] [address] 94573 Calcium 7.9 mg/dL Low 8.4-10.1 Replaced By [facility] Comment on above: Performed By: #### C BC ####[facility], [address] [place] [address] 51548 Chloride 103 mmol/L Normal 98-110 Replaced By [facility] Comment on above: Performed By: #### C BC ####[facility], [address] [place] [address] 49472 Electrolyte Balance 15.0 mEq/L Normal 4.0-15.0 [facility] Comment on above: Performed By: #### C BC ####[facility], [address] [place] [address] 93942 BUN/Creatinine Ratio 33.3 mg/mg High 10.0-22.0 [facility] Comment on above: Performed By: #### C BC ####[facility], [address] [place] [address] 04287 Creatinine 0.54 mg/dL Normal 0.50-1.20 Replaced By [facility] Comment on above: Performed By: #### C BC ####[facility], [address] [place] [address] 45706 CO2 19 mmol/L Low 22-32 Replaced By [facility] Comment on above: Performed By: #### C BC ####[facility], [address] [place] [address]39 Glucose mass conc 368 mg/dL High 70-110 Replaced By [facility] Comment on above: Performed By: #### C BC ####[facility], [address] [place] [address] 36233 Urea nitrogen 18.0 mg/dL Normal 8.0-22.0 Replaced By [facility] Comment on above: Performed By: #### C BC ####[facility], [address] [place] [address] 93368 Potassium molar conc 4.2 mmol/L Normal 3.5-5.0 Formerly [facility] Comment on above: Performed By: #### C BC ####[address] [address] Sodium 137 mmol/L Normal 136-145 Replaced By [facility] Comment on above: Performed By: #### C BC ####[facility], [address] [place] [address] 25561 Glucose mass conc 568 mg/dL Critically high 70-110 Formerly [facility], later [facility] Comment on above: Order Comment: CBN Performed By: #### B MP ####[facility], [address] [place] [address] 66241 BUN/Creatinine Ratio 27.3 mg/mg High 10.0-22.0 Formerly [facility] Comment on above: Order Comment: CBN Performed By: #### B MP ####[facility], [address] [place] [address] 24877 Creatinine 0.77 mg/dL Normal 0.50-1.20 Replaced By [facility] Comment on above: Order Comment: CBN Performed By: #### B MP ####[facility], [facility] [address] [place] [address] 31250 Calcium 10.1 mg/dL Normal 8.4-10.1 Replaced By [facility] Comment on above: Order Comment: CBN Performed By: #### B MP ####[facility], [address] [place] [address] 04894 CO2 21 mmol/L Low 22-32 Replaced By [facility] Comment on above: Order Comment: CBN Performed By: #### B MP ####[address] [address] Electrolyte Balance 19.0 mEq/L High 4.0-15.0 [facility] Comment on above: Order Comment: CBN Performed By: #### B MP ####[facility], [address] [place] [address] 19234 Urea nitrogen 21.0 mg/dL Normal 8.0-22.0 Replaced By [facility] Comment on above: Order Comment: CBN Performed By: #### B MP ####[facility], [facility] [address] [place] [address] 31341 Chloride 89 mmol/L Low 98-110 Replaced By [facility] Comment on above: Order Comment: CBN Performed By: #### B MP ####[facility], [facility] [address] [place] [address] 41953 Potassium molar conc 4.5 mmol/L Normal 3.5-5.0 [facility] Comment on above: Order Comment: CBN Performed By: #### B MP ####[facility], [facility] [address] [place] [address]219 Sodium 129 mmol/L Low 136-145 Replaced By [facility] Comment on above: Order Comment: CBN Performed By: #### B MP ####[facility], [address] [place] [address] 20877 CBCon 02-23-2017 Basophils/100 WBC Auto (Bld) 0.7 % Normal 0.0-2.5 Replaced By [facility] Comment on above: Order Comment: CBN Performed By: #### C BC ####[address] [address] Eosinophils/100 leukocytes 0.7 % Normal 0.0-6.0 Replaced By [facility] Comment on above: Order Comment: CBN Performed By: #### C BC ####[place] [address] Erythrocyte distribution width Auto Ratio (RBC) 14.9 % Normal 11.5-15.5 Replaced By [facility] Comment on above: Order Comment: CBN Performed By: #### C BC ####[place] [id number] Erythrocytes (RBC) 5.16 10 6/mcL Normal 4.10-5.30 [facility] Comment on above: Order Comment: CBN Performed By: #### C BC ####[place] [id number] Hematocrit (HCT) 44.8 % Normal 34.0-46.0 Replaced By [facility] Comment on above: Order Comment: CBN Performed By: #### C BC ####[place] [id number] Hemoglobin mass conc (Bld) 14.7 G/dL Normal 12.0-16.0 Replaced By [facility] Comment on above: Order Comment: CBN Performed By: #### C BC ####[address] [address] Lymphocytes/100 leukocytes 21.2 % Normal 20.0-40.0 Replaced By [facility] Comment on above: Order Comment: CBN Performed By: #### C BC ####[address] [place] [address] MCH 28.5 pg Normal 27.0-33.0 Replaced By [facility] Comment on above: Order Comment: CBN Performed By: #### C BC ####[facility], [address] [place] [address] 76857 MCHC mass conc (RBC) 32.8 G/dL Normal 32.0-36.0 [facility] Comment on above: Order Comment: CBN Performed By: #### C BC ####[facility], [address] [place] [address]241 MCV 86.9 fL Normal 80.0-99.0 Replaced By [facility] Comment on above: Order Comment: CBN Performed By: #### C BC ####[facility], [address] [place] [address] 86754 Monocytes/100 leukocytes 3.9 % Normal 2.0-13.0 Replaced By [facility] Comment on above: Order Comment: CBN Performed By: #### C BC ####[facility], [address] [place] [address] 48606 Neutrophils 6.10 10 3/mcL Normal 1.90-7.90 Replaced By [facility] Comment on above: Order Comment: CBN Performed By: #### C BC ####[facility], [address] [place] [address] 38181 Neutrophils/100 WBC Auto (Bld) 73.5 % Normal 50.0-75.0 Replaced By [facility] Comment on above: Order Comment: CBN Performed By: #### C BC ####[facility], [address] [place] [address] 91595 Platelet mean volume (PMV) 7.9 fL Normal 6.6-10.5 Replaced By [facility] Comment on above: Order Comment: CBN Performed By: #### C BC ####[facility], [address] [place] [address] 67746 Platelets 316 10 3/mcL Normal 150-450 Replaced By [facility] Comment on above: Order Comment: CBN Performed By: #### C BC ####[facility], [address] [place] [address] 64792 WBC (Leukocytes) 8.30 10 3/mcL Normal 4.50-10.80 [facility] Comment on above: Order Comment: CBN Performed By: #### C BC ####[facility], [address] [place] [address] 91394 Culture Bloodon 02-23-2017 Culture Blood Name : KATHLEEN VILLA Brynn Roque: 1995 Sex: Ovalles# Loc Src Site [id number] Blood #1 02/23/17NTIBIOTICS AT COL.: See MEGAN Angel MEDICINE RESIDENT [address] [place], [place] [id number] Blood FINALCulture has been received in lab and is no growth to date.Routine cultures are held for 5 days.Blood Culture: No Growth at 5 daysKEY FOR RESULTS: - NEW RESULTATT.PHYS.: VAMSI MARRUFO LOCATION: [id number].DATE: 02/23/17 PATIENT : KATHLEEN VILLA LMICROBIOLOGYPRINTED: 02/28/17 18:00 REGULAR 2 PAGE: 2 of 1 1 Normal Replaced By [facility] Drug Screen (s)on 02-23-2017 Acetaminophen mass conc <2.0 Low 10.0-30.0 Replaced By [facility] Comment on above: Performed By: #### C BC ####[facility], [address] [place] [address] 70395 Drug Screen (s) Positive Normal Replaced By [facility] Comment on above: Result Comment: . THE SERUM SHOWS EVIDENCE OF:1. Salicylate. Performed By: #### C BC ####[address] [address] Ethanol mg/dL Normal Replaced By [facility] Comment on above: Performed By: #### C BC ####[address] [address] Serum TCA Negative Normal Replaced By [facility] Comment on above: Performed By: #### C BC ####[facility], [address] [place] [address] Salicylate (ds) 3.0 mg/dL Low 10.0-25.0 Replaced By [facility] Comment on above: Performed By: #### C BC ####[facility], [address] [place] [address] Drugs screened: SEE BELOW Normal Replaced By [facility] Comment on above: Result Comment: T his drug screen is a presumptive screening only. Noconfirmation will be performed unless requested.Drugs screened include: Threshold Ethanol 10.0 mg/dl Salicylate 2.0 mg/dL Acetaminophen 2.0 mcg/mL Tricyclic Antidepressants 300 ng/mLTesting has been performed FOR MEDICAL PURPOSES ONLY. Performed By: #### C BC ####[place] [id number] ED Note-Provideron 7 ED Note-Provider Normal Replaced By [facility] Glomerular Filtration Rate E stimateon 02-23-2017 eGFR (non-black) mL/min/{1.73_m2} Normal [facility] Comment on above: Result Comment: [facility]FR = 116 mL/min/1.73 sq.m. for ages 20-29 years. Chronic Kidney Disease: Less than 60 mL/min/1.73 square metersEnd Stage Renal Disease: Less than 15 mL/min/1.73 square meters Performed By: #### C BC ####[place] [address] eGFR (non-black) mL/min/{1.73_m2} Normal [facility] Comment on above: Result Comment: [facility] mean GFR = 116 mL/min/1.73 sq.m. for ages 20-29 years. Chronic Kidney Disease: Less than 60 mL/min/1.73 square metersEnd Stage Renal Disease: Less than 15 mL/min/1.73 square meters Performed By: #### G FR ####[facility], [address] [place], [place] [id number] eGFR (non-black) mL/min/{1.73_m2} Normal [facility] Comment on above: Order Comment: CBN Performed By: #### G FR ####[facility], [address] [place] [address] Result Comment: [facility] kowalski mean GFR = 116 mL/min/1.73 sq.m. for ages 20-29 years. Chronic Kidney Disease: Less than 60 mL/min/1.73 square metersEnd Stage Renal Disease: Less than 15 mL/min/1.73 square meters Magnesiumon 02-23-2017 Magnesium 2.0 mg/dL Normal 1.6-2.4 Replaced By [facility] Comment on above: Performed By: #### M G ####[place] [address] Osmolality (s)on 02-23-2017 Osmolality 299 mOsm/kg Normal 275-300 Replaced By [facility] Comment on above: Performed By: #### C BC ####[place] [id number] Phosphoruson 02-23-2017 Phosphate 2.8 mg/dL Normal 2.5-4.5 Replaced By [facility] Comment on above: Performed By: #### P HOS ####[place] [id number] TSHon 02-23-2017 Thyroid stimulating hormone (TSH) 0.62 mcIU/mL Normal 0.36-3.74 Replaced By [facility] Comment on above: Performed By: #### C BC ####[place] [id number] Troponin Ion 02-23-2017 Troponin I.cardiac mass conc ng/mL Normal 0.000-0.040 Replaced By [facility] Comment on above: Result Comment: Trop onin I reference ranges (05/05/14): 0.00-0.040 ng/mL Negative and non-diagnostic. >0.040 ng/mL Consistent with cardiac damage, increased clinical risk and possibility of myocardial infarction. Serial measurements, a rise & fall in test results, clinical history, appropriate symptoms and/or ECG changes may help assess possibility of NC. *Other non-acute coronary syndrome conditions such as CHF, myocarditis, pulmonary emboli, sepsis and cardiac surgery could result in myocardial damage and increased troponin levels. NOTE: This is a new and more precise Troponin assay started 05-05-14 Performed By: #### T ROPI ####[facility], [address] [place] [address] XR CHEST 1 VIEWon 02-23-2017 XR CHEST [...] PM Sign Date: 02/23/2017 4:58:05 PM Normal Replaced By [facility] XR FOOT COMPLETE RIGHTon XR FOOT COMPLETE [...] PM Sign Date: 02/23/2017 7:47:57 PM Normal Replaced By [facility] pH (venous)on 02-23-2017 pH of blood 7.381 [pH] Normal 7.380-7.460 Replaced By [facility] Comment on above: Order Comment: CBN Performed By: #### P HV ####[facility], [address] [place] [address] Vital Signs Date Time Vital Sign Value Performing Clinician Facility 01-27-2025 13:08-0400 Diastolic blood pressure 87 mm[Hg] Mishel Neelima PA-C Work Phone: [facility] [employer] 01-27-2025 13:08-0400 Heart rate 98 /min Mishel Neelima PA-C Work Phone: [facility] 01-27-2025 13:08-0400 Systolic blood pressure 134 mm[Hg] Mishel Neelima PA-C Work Phone: [facility] 11-11-2024 10:18-0400 Body height 175.3 cm Leticia Islase DO Work Phone: [facility] 11-11-2024 10:18-0400 Body mass index (BMI) [Ratio] 25.07 kg/m2 Leticia Hylton DO Work Phone: [facility] 11-11-2024 10:18-0400 Body weight 77 kg Leticia Islase DO Work Phone: [facility] 11-11-2024 10:18-0400 Diastolic blood pressure 66 mm[Hg] Leticia Hylton DO Work Phone: [facility] 11-11-2024 10:18-0400 Heart rate 107 /min Leticia Islase DO Work Phone: [facility] 11-11-2024 10:18-0400 Systolic blood pressure 103 mm[Hg] Leticia Hylton DO Work Phone: [facility] 07-10-2024 11:25-0500 Body height 172.7 cm Jason Paredes MD Work Phone: [facility] 07-10-2024 11:25-0500 Body mass index (BMI) [Ratio] 26 kg/m2 Jason Paredes MD Work Phone: [facility] 07-10-2024 11:25-0500 Body weight 77.56 kg Jason Paredes MD Work Phone: [facility] 07-10-2024 11:25-0500 Diastolic blood pressure 68 mm[Hg] Jason Paredes MD Work Phone: [facility] 07-10-2024 11:25-0500 Systolic blood pressure 112 mm[Hg] Jason Paredes MD Work Phone: [facility] 03-12-2024 13:58-0400 Body height 175.3 cm Kvng Lewis MD Work Phone: [facility] 03-12-2024 13:58-0400 Body mass index (BMI) [Ratio] 25.39 kg/m2 Kvng Lewis MD Work Phone: [facility] 03-12-2024 13:58-0400 Body weight 78 kg vKng Lewis MD Work Phone: [facility] 03-12-2024 13:58-0400 Diastolic blood pressure 58 mm[Hg] Kvng Lewis MD Work Phone: [facility] 03-12-2024 13:58-0400 Heart rate 69 /min Kvng Lewis MD Work Phone: [facility] 03-12-2024 13:58-0400 SaO2% (BldA) [Mass fraction] 97 % Kvng Lewis MD Work Phone: [facility] 03-12-2024 13:58-0400 Systolic blood pressure 100 mm[Hg] Kvng Lewis MD Work Phone: [facility] 12-13-2023 15:12-0400 Body weight 77.11 kg Jessica Guerrero APRN.CNP Work Phone: [facility] 12-13-2023 15:12-0400 Diastolic blood pressure 87 mm[Hg] Jessica Lynn OPERATIONS REPRESENTATIVE.GRAIN INSPECTOR Work Phone: [facility] 12-13-2023 15:12-0400 Heart rate 80 /min Jessica Lynn OPERATIONS REPRESENTATIVE.GRAIN INSPECTOR Work Phone: [facility] 12-13-2023 15:12-0400 Respiratory rate 16 /min Jessica Lynn OPERATIONS REPRESENTATIVE.GRAIN INSPECTOR Work Phone: [facility] 12-13-2023 15:12-0400 Systolic blood pressure 139 mm[Hg] Jessica Lynn OPERATIONS REPRESENTATIVE.GRAIN INSPECTOR Work Phone: [facility] 12-07-2023 17:30-0400 Body height 175.26 cm No [...] 05-31-2023 15:02-0400 Body weight 78.47 kg Jessica Lynn OPERATIONS REPRESENTATIVE.GRAIN INSPECTOR Work Phone: [facility] 05-31-2023 15:02-0400 Diastolic blood pressure 60 mm[Hg] Jessica Lynn OPERATIONS REPRESENTATIVE.GRAIN INSPECTOR Work Phone: [facility] 05-31-2023 15:02-0400 Heart rate 91 /min Jessica Lynn OPERATIONS REPRESENTATIVE.GRAIN INSPECTOR Work Phone: [facility] 05-31-2023 15:02-0400 Respiratory rate 18 /min Jessica Lynn OPERATIONS REPRESENTATIVE.GRAIN INSPECTOR Work Phone: [facility] 05-31-2023 15:02-0400 Systolic blood pressure 92 mm[Hg] Jessica Lynn OPERATIONS REPRESENTATIVE.GRAIN INSPECTOR Work Phone: [facility] 05-03-2023 09:00-0400 Respiratory rate 16 /min No [...] Hospital 04-27-2023 16:45-0400 Respiratory rate 18 /min [facility] 04-27-2023 16:45-0400 Systolic blood pressure 118 mm[Hg] [facility] 04-27-2023 16:13-0400 Body temperature 97.8 [degF] [facility] 04-27-2023 16:13-0400 Heart rate 90 /min [facility] 04-27-2023 13:23-0400 SaO2% (BldA) [Mass fraction] 96 % [facility] 04-27-2023 09:26-0400 Body height 175.01 cm [facility] 04-27-2023 09:26-0400 Body mass index (BMI) [Ratio] 28.1 kg/m2 [facility] 04-27-2023 09:26-0400 Body weight 86.2 kg [facility] 04-26-2023 23:47-0400 Respiratory rate 22 /min [facility] 04-26-2023 22:00-0400 Heart rate 81 /min [facility] 04-26-2023 22:00-0400 SaO2% (BldA) [Mass fraction] 97 % [facility] 04-26-2023 21:29-0400 Diastolic blood pressure 82 mm[Hg] [facility] 04-26-2023 21:29-0400 Systolic blood pressure 115 mm[Hg] [facility] 04-26-2023 20:25-0400 Body height 175.26 cm [facility] 04-26-2023 20:25-0400 Body mass index (BMI) [Ratio] 25.4 kg/m2 [facility] 04-26-2023 20:25-0400 Body temperature 98.6 [degF] [facility] 04-26-2023 20:25-0400 Body weight 78.21 kg [facility] 04-23-2023 13:00-0400 Respiratory rate 16 /min [facility] 04-23-2023 11:40-0400 Heart rate 52 /min [facility] 04-23-2023 08:33-0400 Body mass index (BMI) [Ratio] 26.9 kg/m2 [facility] 04-23-2023 08:33-0400 Body temperature 97.6 [degF] [facility] 04-23-2023 08:33-0400 Body weight 82.6 kg [facility] 04-23-2023 08:33-0400 Diastolic blood pressure 77 mm[Hg] [facility] 04-23-2023 08:33-0400 SaO2% (BldA) [Mass fraction] 96 % [facility] 04-23-2023 08:33-0400 Systolic blood pressure 123 mm[Hg] [facility] 03-22-2023 11:23-0400 Body temperature 98.1 [degF] Benito Jewell MD Work Phone: [facility] 03-22-2023 11:23-0400 Diastolic blood pressure 72 mm[Hg] Benito Jewell MD Work Phone: [facility] 03-22-2023 11:23-0400 Heart rate 61 /min Benito Jewell MD Work Phone: [facility] 03-22-2023 11:23-0400 Respiratory rate 16 /min Benito Jewell MD Work Phone: [facility] 03-22-2023 11:23-0400 SaO2% (BldA) [Mass fraction] 96 % Benito Jewell MD Work Phone: [facility] 03-22-2023 11:23-0400 Systolic blood pressure 116 mm[Hg] Benito Jewell MD Work Phone: [facility] 03-20-2023 03:02-0400 Body height 175.3 cm Benito Jewell MD Work Phone: [facility] 03-20-2023 03:02-0400 Body mass index (BMI) [Ratio] 26.73 kg/m2 Benito Jewell MD Work Phone: [facility] 03-20-2023 03:02-0400 Body weight 82.1 kg Benito Jewell MD Work Phone: [facility] 01-25-2023 14:02-0400 Body weight 83.92 kg Autumn Valadez APRN.GRAIN INSPECTOR Work Phone: [facility] 01-25-2023 14:02-0400 Diastolic blood pressure 64 mm[Hg] Autumn Valadez APRN.GRAIN INSPECTOR Work Phone: [facility] 01-25-2023 14:02-0400 Heart rate 73 /min Autumn Valadez APRN.GRAIN INSPECTOR Work Phone: [facility] 01-25-2023 14:02-0400 Respiratory rate 18 /min Autumn Valadez APRN.GRAIN INSPECTOR Work Phone: [facility] 01-25-2023 14:02-0400 Systolic blood pressure 129 mm[Hg] Autumn Valadez APRN.GRAIN INSPECTOR Work Phone: [facility] 12-08-2022 14:10-0400 Body height 175.3 cm Vivi Smith MD Work Phone: [facility] 12-08-2022 14:10-0400 Body temperature 97 [degF] Vivi Smith MD Work Phone: [facility] 12-08-2022 14:10-0400 Body weight 85 kg Vivi Smith MD Work Phone: [facility] 12-08-2022 14:10-0400 Diastolic blood pressure 86 mm[Hg] Vivi Smith MD Work Phone: [facility] 12-08-2022 14:10-0400 Heart rate 90 /min Vivi Smith MD Work Phone: [facility] 12-08-2022 14:10-0400 Respiratory rate 20 /min Vivi Smith MD Work Phone: [facility] 12-08-2022 14:10-0400 SaO2% (BldA) [Mass fraction] 98 % Vivi Smith MD Work Phone: [facility] 12-08-2022 14:10-0400 Systolic blood pressure 142 mm[Hg] Vivi Smith MD Work Phone: [facility] 11-07-2022 14:00-0400 Body temperature 97.3 [degF] Abelardo La MD Work Phone: [facility] 11-07-2022 14:00-0400 Body weight 90.72 kg Abelardo La MD Work Phone: [facility] 11-07-2022 14:00-0400 Diastolic blood pressure 72 mm[Hg] Abelardo La MD Work Phone: [facility] 11-07-2022 14:00-0400 Heart rate 94 /min Abelardo La MD Work Phone: [facility] 11-07-2022 14:00-0400 Respiratory rate 16 /min Abelardo La MD Work Phone: [facility] 11-07-2022 14:00-0400 SaO2% (BldA) [Mass fraction] 95 % Abelardo La MD Work Phone: [facility] 11-07-2022 14:00-0400 Systolic blood pressure 129 mm[Hg] Abelardo La MD Work Phone: [facility] 10-22-2022 16:14-0500 Body temperature 99.5 [degF] Abelardo La MD Work Phone: [facility] 10-22-2022 16:14-0500 Body weight 86.18 kg Abelardo La MD Work Phone: [facility] 10-22-2022 16:14-0500 Diastolic blood pressure 96 mm[Hg] Abelardo La MD Work Phone: [facility] 10-22-2022 16:14-0500 Heart rate 143 /min Abelardo La MD Work Phone: [facility] 10-22-2022 16:14-0500 Respiratory rate 20 /min Abelardo La MD Work Phone: [facility] 10-22-2022 16:14-0500 SaO2% (BldA) [Mass fraction] 94 % Abelardo La MD Work Phone: [facility] 10-22-2022 16:14-0500 Systolic blood pressure 150 mm[Hg] Abelardo La MD Work Phone: [facility] 09-19-2022 13:18-0500 Body temperature 97.5 [degF] Injection/[facility] 09-19-2022 13:18-0500 Diastolic blood pressure 62 mm[Hg] Injection/[facility] 09-19-2022 13:18-0500 Heart rate 50 /min Injection/[facility] 09-19-2022 13:18-0500 Respiratory rate 18 /min Injection/[facility] 09-19-2022 13:18-0500 Systolic blood pressure 123 mm[Hg] Injection/[facility] 08-16-2022 15:14-0500 Body weight 87.09 kg Autumn Valadez OPERATIONS REPRESENTATIVE.GRAIN INSPECTOR Work Phone: [facility] 08-16-2022 15:14-0500 Diastolic blood pressure 58 mm[Hg] Autumn Damonssler OPERATIONS REPRESENTATIVE.GRAIN INSPECTOR Work Phone: [facility] 08-16-2022 15:14-0500 Heart rate 68 /min Autumn Valadez OPERATIONS REPRESENTATIVE.GRAIN INSPECTOR Work Phone: [facility] 08-16-2022 15:14-0500 SaO2% (BldA) [Mass fraction] 95 % Autumn Valadez OPERATIONS REPRESENTATIVE.GRAIN INSPECTOR Work Phone: [facility] 08-16-2022 15:14-0500 Systolic blood pressure 113 mm[Hg] Autumn Damonssler OPERATIONS REPRESENTATIVE.GRAIN INSPECTOR Work Phone: [facility] 08-05-2022 11:37-0500 Body temperature 97.2 [degF] Injection/[facility] 08-05-2022 11:37-0500 Diastolic blood pressure 70 mm[Hg] Injection/[facility] 08-05-2022 11:37-0500 Heart rate 68 /min [facility] [facility] 08-05-2022 11:37-0500 Respiratory rate 18 /min Injection/[facility] 08-05-2022 11:37-0500 Systolic blood pressure 119 mm[Hg] Injection/[facility] 06-07-2022 14:14-0400 Body height 175.3 cm Phoebe OPERATIONS REPRESENTATIVE.GRAIN INSPECTOR Work Phone: [facility] 06-07-2022 14:14-0400 Body weight 82.33 kg Phoebe er OPERATIONS REPRESENTATIVE.GRAIN INSPECTOR Work Phone: [facility] 06-07-2022 14:14-0400 Diastolic blood pressure 70 mm[Hg] Phoebe er OPERATIONS REPRESENTATIVE.GRAIN INSPECTOR Work Phone: [facility] 06-07-2022 14:14-0400 Systolic blood pressure 118 mm[Hg] Phoebe Mckeon OPERATIONS REPRESENTATIVE.GRAIN INSPECTOR Work Phone: [facility] 04-18-2022 08:13-0400 Body height 175.3 cm Dishon Kamwesa OPERATIONS REPRESENTATIVE.GRAIN INSPECTOR Work Phone: [facility] 04-18-2022 08:13-0400 Body temperature 96.91 [degF] Dishon Kamwesa OPERATIONS REPRESENTATIVE.GRAIN INSPECTOR Work Phone: [facility] 04-18-2022 08:13-0400 Body weight 81.65 kg Dishon Kamwesa OPERATIONS REPRESENTATIVE.GRAIN INSPECTOR Work Phone: [facility] 04-18-2022 08:13-0400 Diastolic blood pressure 72 mm[Hg] Dishon Kamwesa OPERATIONS REPRESENTATIVE.GRAIN INSPECTOR Work Phone: [facility] 04-18-2022 08:13-0400 Heart rate 78 /min Dishon Kamwesa OPERATIONS REPRESENTATIVE.GRAIN INSPECTOR Work Phone: [facility] 04-18-2022 08:13-0400 SaO2% (BldA) [Mass fraction] 97 % Dishon Kamwesa OPERATIONS REPRESENTATIVE.GRAIN INSPECTOR Work Phone: [facility] 04-18-2022 08:13-0400 Systolic blood pressure 120 mm[Hg] Dishon Kamwesa OPERATIONS REPRESENTATIVE.GRAIN INSPECTOR Work Phone: [facility] 03-11-2022 12:07-0400 Body temperature 96.8 [degF] [facility] 03-11-2022 12:07-0400 Diastolic blood pressure 51 mm[Hg] [facility] 03-11-2022 12:07-0400 Heart rate 55 /min [facility] 03-11-2022 12:07-0400 Respiratory rate 16 /min [facility] 03-11-2022 12:07-0400 Systolic blood pressure 101 mm[Hg] [facility] 03-07-2022 14:00-0400 Body temperature 96.91 [degF] Injection/[facility] 03-07-2022 14:00-0400 Diastolic blood pressure 65 mm[Hg] Injection/[facility] 03-07-2022 14:00-0400 Heart rate 83 /min Injection/[facility] 03-07-2022 14:00-0400 Respiratory rate 16 /min Injection/[facility] 03-07-2022 14:00-0400 Systolic blood pressure 124 mm[Hg] Injection/[facility] 12-28-2021 16:16-0400 Body temperature 97.88 [degF] ANITA COMER MD [facility] 12-28-2021 16:16-0400 Diastolic blood pressure 81 mm[Hg] ANITA COMER MD [facility] 12-28-2021 16:16-0400 Heart rate 78 /min ANITA COMER MD [facility] 12-28-2021 16:16-0400 Respiratory rate 20 /min ANITA COMER MD [facility] 12-28-2021 16:16-0400 Systolic blood pressure 134 mm[Hg] ANITA COMER MD [facility] 05-31-2021 20:30-0400 SaO2% (BldA) [Mass fraction] 100 % [facility] Comment on above: Order Comment: [place]: M Performed By: #### L [id number] ####[facility] [id number] [place], [place] [address]Ay# [phone] Encounters Encounter Date Encounter Type Care Provider [...] 25 minutes Mishel Ortez PA-C Work Phone: [facility] Comment on above: Psoriasis vulgaris ( Primary Dx); Folliculitis; Multiple benign melanocytic nevi of both upper extremities, both lower extremities, and trunk; Seborrheic keratosis; Solar lentigo; Dermatofibroma; Cody angioma; Screening for viral disease; Encounter for screening for respiratory tuberculosis; Encounter for long-term (current) use of medications Start: 01-27-2025 End: 01-27-2025 [facility] Start: 01-22-2025 ambulatory Zebulun Beam VSC Facili ty:[facility] Start: 01-22-2025 End: 01-26-2025 Evaluation and management of inpatient Zebulun Beam VSC Facility:[facility] Start: 01-08-2025 End: 01-08-2025 ambulatory Zebulun Beam VSC Facility[facility] Start: 01-07-2025 End: 01-08-2025 Refill Mishel Ortez PA-C Work Phone: [facility] Start: 12-25-2024 End: 12-25-2024 ambulatory Zebulun Beam VSC Facility:[facility] Start: 12-19-2024 End: 12-23-2024 Telephone encounter Manasa Cantu PA-C Work Phone: [facility] Comment on above: Appointment Request (rayray) Start: 12-14-2024 End: 12-16-2024 ambulatory Dangelo Encarnacion Facility:[facility] Start: 11-28-2024 End: 11-28-2024 ambulatory No Primary Care Physician Facility:[facility] Start: 11-11-2024 End: 11-11-2024 Telephone encounter Leticia Hylton DO Work Phone: Gastroenterology Start: 11-11-2024 End: 11-11-2024 Subsequent hospital visit by physician [facility] Comment on above: Chronic idiopathic c onstipation [K59.04] Start: 11-11-2024 End: 11-11-2024 ambulatory LETICIA HYLTON Facility:[facility] Start: 11-11-2024 End: 11-11-2024 Patient encounter procedure Leticia Hylton DO Work Phone: Gastroenterology Comment on above: Chronic idiopathic c onstipation (Primary Dx); Abdominal pain, suprapubic Start: 11-05-2024 ambulatory No Primary Car e Physician Facility:[facility] Start: 11-05-2024 End: 11-06-2024 Evaluation and management [...] 10-02-2024 End: 10-10-2024 Telephone encounter Jessica Guerrero APRN.GRAIN INSPECTOR Work Phone: Endocrinology Comment on above: Forms [...] Telephone encounter Manasa Cantu PA-C Work Phone: [facility] Comment on above: Prior Authorization (Skyrizi renewal) Start: 08-02-2024 ambulatory Vamsi Duvall Facili ty:[facility] Start: 08-02-2024 End: 08-03-2024 Evaluation and management of inpatient Vamsi Duvall Facility:[facility] Start: 08-01-2024 End: 08-01-2024 Emergency department patient visit No Primary Care Physician Facility:[facility] Start: 2024 End: 08-06-2024 ambulatory [facility] Facility:[facility] Start: 07-23-2024 End: 07-23-2024 ambulatory [facility] Facility:[facility] Start: 07-23-2024 End: 07-23-2024 Nursing evaluation of [...] Phone: Endocrinology Start: 07-11-2024 End: 07-27-2024 ambulatory [facility] Facility:[facility] Start: 07-10-2024 End: 07-10-2024 ambulatory VIVI IZAGUIRREAHIM Facility:[facility] Start: 07-10-2024 End: 07-10-2024 ambulatory VIVI BARAHONA SMITH Facility:[facility] Start: 07-10-2024 End: 07-10-2024 Patient encounter procedure Jason Paredes MD Work Phone: OB/Gynecology Comment on above: Encounter for gyneco logical examination (general) (routine) without abnormal findings (Primary Dx); Encounter for screening for malignant neoplasm of cervix; Screening for human papillomavirus (HPV); Irregular menstrual bleeding; Routine screening for STI (sexually transmitted infection) Start: 07-10-2024 End: 07-10-2024 Patient encounter status Jason Paredes MD Work Phone: [facility] Start: 06-28-2024 End: 07-05-2024 ambulatory [facility] Facility:[facility] Start: 06-24-2024 End: 06-25-2024 Telephone encounter Jessica Guerrero APRN.GRAIN INSPECTOR Work Phone: [facility] [place] Comment on above: diabetic supplies Start: 06-17-2024 End: 06-17-2024 Telephone encounter Kvng Lewis MD Work Phone: Endocrinology Comment on above: Forms Start: 06-07-2024 ambulatory Kenyetta Suarez Facility:[facility] Start: 06-07-2024 End: 06-11-2024 Evaluation and management of inpatient John Knapp Facility:[facility] Start: 05-28-2024 End: 06-27-2024 ambulatory [facility] Facility:[facility] Start: 05-21-2024 End: 05-27-2024 ambulatory [facility] Facility:[facility] Start: 05-16-2024 End: 05-24-2024 Telephone encounter Jessica Guerrero APRN.GRAIN INSPECTOR Work Phone: Endocrinology Comment on above: insulin pump Start: 05-06-2024 End: 05-06-2024 Telephone encounter Leesa Huddleston PA-C Work Phone: [facility] Dermatology Comment on above: Prior Authorization (Skyrizi renewal) Start: 04-21-2024 End: 04-21-2024 Emergency department patient visit No Primary Care Physician Facility:[facility] Start: 04-16-2024 End: 04-16-2024 Refill Leesa Huddleston PA-C Work Phone: [facility] Dermatology Start: 04-08-2024 Refill Jessica Guerrero APRN.GRAIN INSPECTOR Work Phone: Internal Medicine [place] Comment on above: Refill Request Start: 03-12-2024 End: 03-12-2024 ambulatory [facility] Facility[facility] Start: 03-12-2024 End: 03-12-2024 Patient encounter procedure [...] Telephone encounter Leesa Huddleston PA-C Work Phone: [facility] Dermatology Comment on above: Medication Problem ( Skyrizi) Start: 12-15-2023 ambulatory Kyara Wu Senior Principal Architect Comment on above: Primary Care Coordin ator Chronic Care Start: 12-13-2023 End: 12-13-2023 ambulatory [facility] Start: 12-13-2023 End: 12-13-2023 Patient encounter procedure [...] 15 minutes Leesa Huddleston PA-C Work Phone: [facility] Dermatology Comment on above: Psoriasis vulgaris ( Primary Dx); Multiple benign nevi Start: 11-10-2023 Patient Outreach Kyara Wu Senior Principal Architect Comment on above: Transition Of Care Start: 11-03-2023 Patient Outreach Kyara Wu Senior Principal Architect Comment on above: Transition Of Care Start: 10-27-2023 Patient Outreach [facility] Comment on above: Transition Of Care Start: 10-25-2023 End: 10-25-2023 Emergency department patient visit No Primary Care Physician [facility] Work Phone: Start: 10-20-2023 Patient Outreach [facility] Comment on above: Transition Of Care Start: 10-19-2023 Patient Outreach [facility] Comment on above: Transition Of Care ( Message) Start: 10-18-2023 Non-patient / Non-visit No [facility] Physician [facility] In[facility] Phys[facility] Work Phone: Start: 10-17-2023 End: 10-18-2023 Evaluation and management of inpatient No Primary Care Physician [facility]Intensive [facility] Work Phone: Start: 10-12-2023 ambulatory [facility] Comment on above: Primary Care Coordin ator Chronic Care Start: 10-02-2023 Telephone encounter Kvng Brink MD Work Phone: Endocrinology Comment on above: Forms (DME: [facility] for pump supplies) Start: 09-29-2023 ambulatory Kyara Wu Senior Principal Architect Comment on above: Primary Care Coordin ator Chronic Care Start: 09-25-2023 End: 09-25-2023 Emergency department patient visit No Primary Care Physician [facility] Work Phone: Start: 09-24-2023 End: 09-24-2023 Emergency department [facility] Start: 09-21-2023 Refill Vivi Smith MD Work Phone: Internal Medicine [place] Comment on above: Refill Request Start: 09-20-2023 End: 09-20-2023 Emergency department patient visit [facility] Start: 09-06-2023 End: 09-06-2023 Emergency department patient visit No Primary Care Physician [facility] Work Phone: Start: 08-22-2023 End: 08-22-2023 Emergency department patient visit No Primary Care Physician [facility] Work Phone: Start: 08-17-2023 Telephone encounter Leesa Huddleston PA-C Work Phone: [facility] Dermatology Start: 08-15-2023 Patient Outreach Kyara garza RN [facility] Senior Principal Architect Comment on above: Transition Of Care Start: 08-10-2023 Non-patient / Non-visit No Elaine caal [facility] Physician [facility] Inpatient Physicians Work Phone: Start: 08-09-2023 Non-patient / Non-visit No Elanie caal [facility] Physician [facility] Work Phone: Start: 08-08-2023 Non-patient / Non-visit No Elaine caal [facility] Physician [facility] Work Phone: Start: 08-07-2023 End: 08-10-2023 Evaluation and management of inpatient No [facility] Start: 08-06-2023 End: [...] End: 05-31-2023 Patient encounter procedure Jessica Josue HICKSN.GRAIN INSPECTOR Work Phone: Endocrinology Comment on above: Type 1 diabetes kasi itus with hyperglycemia, with long-term current use of insulin (HCC) (Primary Dx); Insulin pump status Start: 05-03-2023 End: 05-03-2023 Emergency department patient visit No Primary Care Physician [facility]Emergency [facility] Work Phone: Start: 05-02-2023 Enedina swain PA-C Work Phone: [facility] Dermatology Comment on above: Psoriasis vulgaris ( Primary Dx) Start: 04-29-2023 Non-patient / Non-visit No [facility] Physician [facility] Inpatient Phys[facility] Work Phone: Start: 04-28-2023 Non-patient / Non-visit No [facility] Physician [facility] Work Phone: Start: 04-27-2023 Non-patient / Non-visit No [facility] Physician [facility] In[facility] Work Phone: Start: 04-27-2023 End: 04-29-2023 Evaluation and management of inpatient [facility] Surgical 3 Work Phone: Start: 04-27-2023 End: 04-29-2023 observation encounter No Primary Care Physician [facility] Work Phone: Start: 04-26-2023 End: 04-26-2023 Emergency department patient visit [facility] Work Phone: Start: 04-23-2023 End: 04-23-2023 Emergency department patient visit [facility] Work Phone: Start: 04-06-2023 End: 04-06-2023 Emergency department patient visit VIVI SMITH Facility:[id number] Start: 03-20-2023 End: 03-22-2023 ambulatory BENITO JEWELL [facility] Start: 03-20-2023 End: 03-22-2023 Emergency department patient visit Mariel Gagnon MD Work Phone: [facility] Start: 02-15-2023 Patient encounter procedure [facility] Provider [facility] Department Start: 02-08-2023 Patient Outreach Kyara garza RN [facility] Senior Principal Architect Comment on above: Transition Of Care Start: 02-01-2023 Telephone encounter Vivi Smith MD Work Phone: [facility] Primary Comment on above: Results Start: 01-31-2023 End: 02-04-2023 Evaluation and management of inpatient VIVI SMITH Facility:[id number] Start: 01-25-2023 End: 01-25-2023 ambulatory VIVI SMITH Facility:[id number] Start: 01-25-2023 End: 01-25-2023 Patient encounter procedure Autumn Valadez APRN.CNP Work Phone: Endocrinology Comment on above: Type 1 diabetes kasi itus with hyperglycemia, with long-term current use of insulin (HCC) (Primary Dx); Insulin pump status; Screening for diabetic retinopathy Start: 01-25-2023 End: 01-25-2023 Nursing evaluation of patient and report Nurse Laura Rg Work Phone: [facility] Primary Comment on above: Left flank pain (Elaine ten Dx); Dysuria Start: 01-24-2023 Telephone encounter Vivi Smith MD Work Phone: [facility] Primary Comment on above: Orders Results Appointment Start: 01-20-2023 End: 01-20-2023 ambulatory VIVI SMITH Facility:[id number] Start: 01-12-2023 End: 01-13-2023 ambulatory MADONNA TORO Facility:[id number] Start: 01-09-2023 E-mail encounter mario m caregiver Phoebe Mckeon OPERATIONS REPRESENTATIVE.GRAIN INSPECTOR Work Phone: [facility] Start: 01-09-2023 Patient encounter procedure Phoebe Fisherlorenaloni OPERATIONS REPRESENTATIVE.GRAIN INSPECTOR Work Phone: Obstetrics and Gynecology Comment on above: Request an Appointme nt Start: 01-03-2023 Telephone encounter Kvng Brink MD Work Phone: Endocrinology Comment on above: Forms Start: 12-09-2022 Telephone encounter Vivi Smith MD Work Phone: [facility] Primary [facility] Primary Comment on above: Patient Question Start: 12-08-2022 End: 12-08-2022 Office outpatient new 30 minutes Vivi Smith MD Work Phone: [facility] Primary Comment on above: Gastroparesis due to DM (HCC) (Primary Dx); Aortic root aneurysm (HCC); Primary hypertension; Chronic nausea; 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); Marfan syndrome; PTSD (post-traumatic stress disorder); Generalized abdominal pain Start: 11-07-2022 End: 11-07-2022 Patient encounter procedure Abelardo La MD Work Phone: [facility] [place] Comment on above: Viral conjunctivitis (Primary Dx) Start: 11-04-2022 Refill Leesatavares swain PA-C Work Phone: [facility] Start: 11-02-2022 Telephone encounter Kvng Brink MD Work Phone: Endocrinology Comment on above: Forms Start: 10-31-2022 Telephone encounter Kvng Brink MD Work Phone: Endocrinology Comment on above: Insurance Authorizat ion; Forms Start: 10-22-2022 End: 10-22-2022 Patient encounter procedure Abelardo La MD Work Phone: [facility] Comment on above: Lower abdominal pain (Primary Dx) Start: 10-04-2022 End: 10-04-2022 Office outpatient visit 25 minutes Leesa Huddleston PA-C Work Phone: Dermatology [place] Comment on above: Psoriasis vulgaris ( Primary Dx); Folliculitis; Encounter for long-term current use of high risk medication; Screening for viral disease Start: 09-19-2022 End: 09-19-2022 [facility]ulatory [facility] Comment on above: Type 1 diabetes kasi itus with other specified complication (HCC) (Primary Dx) Start: 09-06-2022 Telephone encounter Autumn peralta APRN.GRAIN INSPECTOR Work Phone: Endocrinology Comment on above: Medication Problem Start: 08-16-2022 End: 08-16-2022 Patient encounter procedure Autumn Valadez APRN.GRAIN INSPECTOR Work Phone: Endocrinology Comment on above: Type 1 diabetes kasi itus with hyperglycemia, with long-term current use of insulin (HCC) (Primary Dx); Insulin pump status Start: 08-05-2022 End: 08-05-2022 ambulatory [facility] Comment on above: Type [...] Kvng Lewis MD Work Phone: [facility] Start: 07-06-2022 Telephone encounter Kvng Brink MD Work Phone: Endocrinology Comment on above: Appointment Start: 06-13-2022 Telephone encounter Tawanda soto DO Work Phone: Endocrinology Comment on above: Rodrigue MONIQUE for insu marci pump/pump supplies Start: 06-07-2022 End: 06-07-2022 Patient encounter procedure Phoebe Mckeon OPERATIONS REPRESENTATIVE.GRAIN INSPECTOR Work Phone: Obstetrics and Gynecology Comment on [...] Nursing evaluation of patient and report Nurse Complex Manager [facility] Work Phone: Obstetrics and Gynecology Comment on above: Gonorrhea (Primary D x) Start: 05-10-2022 ambulatory Phoebe eid OPERATIONS REPRESENTATIVE.GRAIN INSPECTOR Work Phone: Obstetrics and Gynecology Comment on above: Question regarding S YPHILIS TOTAL W/REFLEX Start: 05-10-2022 Telephone encounter Phoebe Raya OPERATIONS REPRESENTATIVE.GRAIN INSPECTOR Work Phone: Obstetrics and Gynecology Comment on above: Results; Orders Start: 05-02-2022 Refill Tawanda Khoury DO Work Phone: Endocrinology Comment on above: Refill Request Refill Request (Marciz ess) Start: 04-18-2022 End: 04-18-2022 Patient encounter procedure Dashawn Cain OPERATIONS REPRESENTATIVE.GRAIN INSPECTOR Work Phone: [facility] Comment on above: Menstrual irregulari ty (Primary Dx); Screening for STD (sexually transmitted disease); Chronic nausea Start: 03-11-2022 End: 03-11-2022 ambulatory Chair 9 [facility]fusion [facility] Comment on above: Type 1 diabetes kasi itus with other specified complication (HCC) (Primary Dx) Start: 03-10-2022 Refill Dashawn Cain APRN.GRAIN INSPECTOR Work Phone: [facility] Start: 03-07-2022 End: 03-07-2022 ambulatory Injection/[facility] Infusion [place] Comment on above: Type 1 diabetes kasi itus with other specified complication (HCC) (Primary Dx) Start: 03-01-2022 Chart abstracting Jayjay cobb MD Work Phone: Infusion Center Start: 01-29-2022 End: 01-29-2022 Subsequent hospital visit by physician Sourav Butts MD Work Phone: [facility] Comment on above: DKA,TYPE 1 Start: 01-27-2022 End: 01-27-2022 Subsequent hospital visit by physician Dashawn Cain APRN.GRAIN INSPECTOR Work Phone: [facility] Comment on [...] Emergency department patient visit ANITA COMER MD [facility] Start: 12-27-2021 End: 12-27-2021 Subsequent [...] 02-24-2017 Emergency department patient visit [facility] Start: 12-05-2014 Patient encounter status [facility] Provider [facility] Procedures Date Procedure Procedure Detail Performing Clinician Start: 11-11-2024 Radiologic exam abdo men 1 view Leticia Hylton DO Work Phone: Start: 07-10-2024 Microscopic observat ion [Identifier] in Cervix by Cyto stain Manasa Cantu PA-C Work Phone: Start: 03-12-2024 Hemoglobin A1c/Hemoglobin.total in Blood Kvng Lewis MD Work Phone: Start: 12-13-2023 Hemoglobin A1c/Hemoglobin.total in Blood Jessica Lynn OPERATIONS REPRESENTATIVE.GRAIN INSPECTOR Work Phone: Start: 09-24-2023 Plain chest X-ray [...] Start: 05-31-2023 Hemoglobin A1c/Hemoglobin.total in Blood Jessica Lynn OPERATIONS REPRESENTATIVE.GRAIN INSPECTOR Work Phone: Start: 04-28-2023 Urine culture No [...] MD Work Phone: Start: 03-20-2023 Glucose measurement [facility] tammy Ireland MD Work Phone: Start: 03-20-2023 Ecg routine ecg w/le ast 12 lds w/i&r Mary Jennifer Mesa PA-C Work Phone: Start: 03-20-2023 Basic metabolic pane l calcium total Mary Jennifer Mesa PA-C Work Phone: Start: 03-20-2023 Ct angiography chest w/contrast/noncontrast Mariel aGgnon MD Work Phone: Start: 03-20-2023 Electrocardiogram Mariel [...] 01-25-2023 Hemoglobin A1c/Hemoglobin.total in Blood Autumn Valadez OPERATIONS REPRESENTATIVE.GRAIN INSPECTOR Work Phone: Start: 01-25-2023 Urnls dip stick/tabl et rgnt auto w/o microscopy Vivi Smith MD Work Phone: Start: 08-16-2022 Hemoglobin A1c/Hemoglobin.total in Blood Autumn Valadez OPERATIONS REPRESENTATIVE.GRAIN INSPECTOR Work Phone: Start: 05-10-2022 Microscopic observat ion [...] for Adults (1 - 1-dose 75+ series) [facility] Start: 2054 RSV Immunization aged 60 or older (1 - 1-dose 60+ series) RSV Immunization aged 60 or older (1 - 1-dose 60+ series) [facility] Start: 2044 Zoster Vaccines (1 of 2) Zoster Vaccines (1 of 2) [facility] Start: 07-10-2029 Screening for malignant neoplasm of cervix Cervical Cancer Screening [facility] Start: 07-10-2027 Screening for malignant neoplasm of cervix [facility] Start: 02-04-2026 End: 02-04-2026 Patient encounter procedure 02/04/2026 10:00 AM EDT Office Visit [facility] D[facility] - [place] [address] [facility] [address] [place] [id number] Mishel Ortez PA-C [address] [facility] [address] [place] [address] [facility] [place] Start: 11-11-2025 BP Controlled (<130/80) BP Controlled (<130/80) [facility] Start: 07-30-2025 End: 07-30-2025 Patient encounter procedure 07/30/2025 9:20 AM EST Office Visit [facility] [place] [address] [facility] [address] [place] [phone] Mishel Ortez PA-C [address] [facility] [address] [place] [address] [facility] [place] Start: 07-14-2025 End: 07-14-2025 Patient encounter procedure 07/14/2025 10:30 AM EST Office Visit OB/Gynecology [address] [place], [place] [id number] Jason Paredes MD [address] [place], [place] [id number] Annual OB/Gynecology Comment on above: Annual Start: 07-10-2025 BP Controlled (<130/80) BP Controlled (<130/80) [facility] Start: 05-10-2025 PAP TESTING PAP TESTING [facility] Start: 05-10-2025 Screening for malignant neoplasm of cervix [facility] Start: 04-28-2025 Influenza vaccination Influenza Vaccine (Season Ended) [facility] Start: 03-12-2025 BP Controlled (<130/80) BP Controlled (<130/80) [facility] Start: 03-12-2025 Hemoglobin A1c measurement Diabetes: Hemoglobin A1C [facility] Start: 01-27-2025 End: 01-27-2026 CBC W Auto Differential panel - Blood CBC auto differential Lab Routine Encounter for long-term (current) use of medications Expected: 01/27/2025 (Approximate), Expires: 01/27/2026 [facility] Work Phone: Comment on above: Expected: 01/27/2025 (Approximate), Expi res: 01/27/2026 Start: 01-27-2025 End: 01-27-2026 Comprehensive metabolic 1998 panel - Serum or Plasma Comprehensive metabolic panel Lab Routine Encounter for long-term (current) use of medications Expected: 01/27/2025 (Approximate), Expires: 01/27/2026 [facility] Comment on above: Expected: 01/27/2025 (Approximate), Expi res: 01/27/2026 Start: 01-27-2025 End: 01-27-2026 Hepatitis A virus IgM Ab [Presence] in Serum or Plasma by Immunoassay Hepatitis A antibody, IgM Lab Routine Screening for viral disease Encounter for long-term (current) use of medications Expected: 01/27/2025 (Approximate), Expires: 01/27/2026 [facility] Comment on above: Expected: 01/27/2025 (Approximate), Expi res: 01/27/2026 Start: 01-27-2025 End: 01-27-2026 Hepatitis B virus core IgM Ab [Presence] in Serum or Plasma by Immunoassay Hepatitis B core antibody, IgM Lab Routine Screening for viral disease Encounter for long-term (current) use of medications Expected: 01/27/2025 (Approximate), Expires: 01/27/2026 [facility] Comment on above: Expected: 01/27/2025 (Approximate), Expi res: 01/27/2026 Start: 01-27-2025 End: 01-27-2026 Hepatitis B virus surface Ab [Units/volume] in Serum or Plasma by Immunoassay Hepatitis B surface antibody Lab Routine Screening for viral disease Encounter for long-term (current) use of medications Expected: 01/27/2025 (Approximate), Expires: 01/27/2026 [facility] Comment on above: Expected: 01/27/2025 (Approximate), Expi res: 01/27/2026 Start: 01-27-2025 End: 01-27-2026 Hepatitis B virus surface Ag [Presence] in Serum or Plasma by Immunoassay Hepatitis B surface antigen Lab Routine Screening for viral disease Encounter for long-term (current) use of medications Expected: 01/27/2025 (Approximate), Expires: 01/27/2026 [facility] Comment on above: Expected: 01/27/2025 (Approximate), Expi res: 01/27/2026 Start: 01-27-2025 End: 01-27-2026 Hepatitis C virus Ab [Presence] in Serum or Plasma by Immunoassay Hepatitis C antibody Lab Routine Screening for viral disease Encounter for long-term (current) use of medications Expected: 01/27/2025 (Approximate), Expires: 01/27/[address] [facility] [employer] Comment on above: Expected: 01/27/2025 (Approximate), Expi res: 01/27/2026 Start: 01-27-2025 End: 01-27-2026 HIV 1+2 Ab+HIV1 p24 Ag [Presence] in Serum or Plasma by Immunoassay HIV-1 and HIV-2 Antigen-Antibody Screen Lab Routine Screening for viral disease Encounter for long-term (current) use of medications Expected: 01/27/2025 (Approximate), Expires: 01/27/[address] [facility] [employer] Comment on above: Expected: 01/27/2025 (Approximate), Expi res: 01/27/2026 Start: 01-27-2025 End: 01-27-2026 QUANTIFERON TB GOLD QUANTIFERON TB GOLD Lab Routine Encounter for screening for respiratory tuberculosis Encounter for long-term (current) use of medications Expected: 01/27/2025 (Approximate), Expires: 01/27/[address] [facility] [employer] Comment on above: Expected: 01/27/2025 (Approximate), Expi res: 01/27/2026 Start: 01-27-2025 End: 01-27-2025 Patient encounter procedure 01/27/2025 1:00 PM EDT Office Visit [facility] [place] [facility] [address] [facility] [address] [place] [phone] Mishel Ortez PA-C [address] [facility] [address] [place] [address] [facility] [place] Start: 01-06-2025 End: 01-06-2025 Patient encounter procedure 01/06/2025 1:00 PM EDT Office Visit [facility] [place] [facility] [address] [facility] [address] [place] [phone] Gardenia Reyes PA-C [address] [facility] [address] [place] [address] [facility] [place] Start: 12-12-2024 Hemoglobin A1c measurement Diabetes: Hemoglobin A1C [facility] Start: 11-11-2024 End: 11-11-2024 Patient encounter procedure 11/11/2024 10:30 AM EDT Office Visit Gastroenterology [address] [place] [address] [address] DO [address] [place] [address] eating issues/gp Gastroenterology Comment on above: eating issues/gp Start: 09-12-2024 BP Controlled (<130/80) BP Controlled (<130/80) [facility] Start: 09-12-2024 Hemoglobin A1c measurement [facility] Start: 09-03-2024 End: 09-03-2024 Patient encounter procedure 09/03/2024 11:30 AM EST Office Visit Endocrinology [address] [place] [address] Jessica Guerrero APRN.GRAIN INSPECTOR [address] [place] [address] 6 month follow up Endocrinology Comment on above: 6 month follow up Start: 09-02-2024 End: 09-02-2024 ambulatory 09/02/2024 9:30 AM EST [facility] [address] [place] [address]ton DO [address] [place] [address] gp f/u Gastroenterology Comment on above: gp f/u Start: 08-28-2024 Medicare Advantage Annual Wellness Visit Medicare Advantage Annual Wellness Visit [facility] Start: 08-15-2024 Diabetes: Estimated Glomerular Filtration Rate for Kidney Health Diabetes: Estimated Glomerular Filtration Rate for Kidney Health [facility] Start: 08-06-2024 End: 08-06-2024 Patient encounter procedure [facility] Start: 2024 Screening for malignant neoplasm of cervix HPV/Cotest [facility] Start: 07-23-2024 End: 07-23-2024 Nursing evaluation of patient and report 07/23/2024 9:00 AM EST Nurse Visit Endocrinology [address] [place] [address] Vamsi Carson, RN [address] [id number] Type 1 diabetes mellitus with hyperglycemia, with [...] Insulin pump status Expected: 07/19/2024, Expires: 10/18/2024 [facility] Work Phone: Comment on above: Expected: 07/19/2024, Expires: Start: 07-19-2024 End: 10-18-2024 Hemoglobin A1c in Blood HEMOGLOBIN A1C Lab Routine Type 1 diabetes mellitus with hyperglycemia, with long-term current use of insulin (HCC) Insulin pump status Expected: 07/19/2024, Expires: 10/18/2024 [facility] Comment on above: Expected: 07/19/2024, Expires: 5 Start: 07-19-2024 End: 10-18-2024 Lipid 1996 panel - Serum or Plasma LIPID PANEL BASIC Lab Routine Type 1 diabetes mellitus with hyperglycemia, with long-term current use of insulin (HCC) Insulin pump status Expected: 07/19/2024, Expires: 10/18/2024 [facility] Comment on above: Expected: 07/19/2024, Expires: 5 Start: 07-19-2024 End: 10-18-2024 Microalbumin/Creatinine [Mass Ratio] in Urine ALBUMIN/CREATININE RATIO, URINE Lab Routine Type 1 diabetes mellitus with hyperglycemia, with long-term current use of insulin (HCC) Insulin pump status Expected: 07/19/2024, Expires: 10/18/2024 [facility] Comment on above: Expected: 07/19/2024, Expires: 5 Start: 07-19-2024 End: 07-19-2024 ambulatory 07/19/2024 1:30 PM EST [facility] Endocrinology [address] [place] [address] Jessica Guerrero APRN.GRAIN INSPECTOR [address] [place] [address] follw up Endocrinology Comment on above: follw up Start: 07-10-2024 End: 10-09-2024 Hepatitis C virus RNA [Units/volume] (viral load) in Serum or Plasma by DANIEL with probe detection [facility] Comment on above: Expected: 07/10/2024, Expires: Start: 07-10-2024 End: 10-09-2024 HIV 1+2 Ab [Presence] in Serum or Plasma by Immunoassay [facility] Work Phone: Comment on above: Expected: 07/10/2024, Expires: 5 Start: 07-10-2024 End: 10-09-2024 SYPHILIS TREPONEMAL W/REFLEX [facility] Comment on above: Expected: 07/10/2024, Expires: 5 Start: 07-10-2024 End: 10-09-2024 Thyrotropin [Units/volume] in Serum or Plasma [facility] Comment on above: Expected: 07/10/2024, Expires: 5 Start: 07-10-2024 End: 07-10-2024 Patient encounter procedure 07/10/2024 11:10 AM EST Office Visit OB/Gynecology [address] [place] [place] [id number] Jason Paredes MD [address] [place] [address] Annual/ Referral in Scan Doc OB/Gynecology Comment on above: Annual/ Referral in Scan Doc Start: 06-13-2024 End: 06-13-2024 Patient encounter procedure 06/13/2024 3:00 PM EDT Office Visit Endocrinology [address] [facility] [place] [address] Jessica Guerrero, ESTEFANIA.GRAIN INSPECTOR [address] [facility] [place] [address] 6 month follow up Endocrinology Comment on above: 6 month follow up Start: 06-13-2024 Hemoglobin A1c measurement HbA1C [facility] Start: 06-12-2024 Hemoglobin A1c measurement HbA1C [facility] Start: 05-31-2024 BP Controlled (<130/80) BP Controlled (<130/80) [facility] Start: 05-31-2024 Hemoglobin A1c measurement Diabetes: Hemoglobin A1C [facility] Start: 05-28-2024 End: 05-28-2024 Patient encounter procedure 05/28/2024 11:30 AM EDT Office Visit Endocrinology [address] [facility] [place] [address] Jessica Guerrero, OPERATIONS REPRESENTATIVE.GRAIN INSPECTOR [address] [facility] [place] [address] 2-3 month f/u Endocrinology Comment on above: 2-3 month f/u Start: 04-28-2024 COVID-19 Vaccine ( season) COVID-19 Vaccine ( season) [facility] Start: 04-28-2024 Covid-19 Vaccine ( season) Covid-19 Vaccine ( season) [facility] Start: 04-28-2024 Influenza vaccination [facility] Start: 04-16-2024 DTaP/Tdap/Td Vaccines (3 - Td or Tdap) DTaP/Tdap/Td Vaccines (3 - Td or Tdap) [facility] Start: 04-16-2024 Urine microalbumin profile [facility] Start: 03-12-2024 Hemoglobin A1c measurement HbA1C [facility] Start: 03-12-2024 End: 03-12-2024 Patient encounter procedure 03/12/2024 2:00 PM EDT Office Visit Endocrinology [address] [facility] [place] [address] Kvng Lewis MD [address] [place] [address] follow up Endocrinology Comment on above: follow up Start: 02-08-2024 BP CONTROLLED (<130/80) BP CONTROLLED (<130/80) [facility] Start: 02-01-2024 End: 02-01-2024 Patient encounter procedure 02/01/2024 10:00 AM EDT Office Visit [facility] Dermatology [address] [facility] [address] [place] [phone] Leesa Huddleston PA-C [address] [facility] [address] [place] [address] [facility] Dermatology Start: 01-26-2024 BP CONTROLLED (<130/80) BP CONTROLLED (<130/80) Terry [facility] Start: 01-21-2024 ANNUAL PCP TEAM CHRONIC DISEASE VISIT ANNUAL PCP TEAM CHRONIC DISEASE VISIT [facility] Start: 01-21-2024 BP CONTROLLED (<130/80) BP CONTROLLED (<130/80) Terry [facility] Start: 12-09-2023 ANNUAL PCP TEAM CHRONIC DISEASE VISIT ANNUAL PCP TEAM CHRONIC DISEASE VISIT [facility] Start: 11-30-2023 Hemoglobin A1c measurement HbA1C [facility] Start: 11-30-2023 Hemoglobin A1c/Hemoglobin.total in Blood HbA1C [facility] Start: 11-14-2023 End: 11-14-2023 Patient encounter procedure 11/14/2023 10:20 AM EDT Office Visit [facility] Dermatology [address] [facility] [address] [place] [phone] Leesa Huddleston PA-C [address] [facility] [address] [place] [address] [facility] Dermatology Start: 11-08-2023 BP CONTROLLED (<130/80) BP CONTROLLED (<130/80) [facility] in Start: 10-25-2023 [facility] Start: 02-28-2024 Suicide precautions [facility] Start: 10-18-2023 Patient discharge [facility] Start: 10-17-2023 [facility] Start: 10-17-2023 Venous catheter care management [facility] Start: 10-17-2023 Assessment of risk of venous thromboembolism [facility] Start: 10-17-2023 Continuous pulse oximetry [facility] Start: 10-17-2023 Insertion of catheter into peripheral vein [facility] Start: 10-17-2023 Measuring intake and output [facility] Start: 10-17-2023 Notification of physician [facility] Start: 10-17-2023 Patient education [facility] Start: 10-17-2023 Patient referral to dietitian [facility] Start: 10-17-2023 Providing care according to standard [facility] Start: 10-17-2023 Referral to occupational therapist [facility] Start: 10-17-2023 Referral to service [facility] Start: 10-17-2023 Vital signs measurements [facility] Start: 10-17-2023 [facility] Start: 10-17-2023 Verification [...] 08-28-2023 Behavioral Health Screening Behavioral Health Screening [facility] Start: 08-28-2023 Depression Assessment Depression Assessment [facility] Start: 08-28-2023 Medicare Advantage Annual Wellness Visit Medicare Advantage Annual Wellness Visit [facility] Start: 08-22-2023 [facility] Start: 08-22-2023 [facility] Start: 08-22-2023 Venous catheter care management [facility] Start: 08-16-2023 3 comp foot exam completed DIABETIC FOOT EXAM [facility] Start: 08-16-2023 BP CONTROLLED (<130/80) BP CONTROLLED (<130/80) [facility] Start: 08-16-2023 Diabetic foot examination Diabetic Foot Exam [facility] Start: 08-15-2023 End: 08-15-2023 Patient encounter procedure [facility] Dermatology Start: 08-10-2023 Patient discharge [facility] Start: 08-07-2023 Lab findings surveillance [facility] Start: 08-07-2023 Notification of physician [facility] Start: 08-07-2023 Patient education [facility] Start: 08-07-2023 Taking nasal swab [facility] Start: 08-07-2023 Vital signs measurements [facility] Start: 08-07-2023 [facility] Start: 08-07-2023 Aspiration precautions [facility] Start: 08-07-2023 Blood chemistry [facility] Start: 08-07-2023 Admission procedure [facility] Start: 08-06-2023 Venous catheter care management [facility] Start: 08-06-2023 Gas panel - Venous blood [facility] Start: 08-06-2023 [facility] Start: 08-06-2023 Venous catheter care management [facility] Start: 07-27-2023 Hemoglobin A1c/Hemoglobin.total in Blood HBA1C [facility] Start: 06-26-2023 Venous catheter care management [facility] Start: 06-26-2023 [facility] Start: 06-25-2023 End: 06-25-2023 [facility] Start: 06-07-2023 BP CONTROLLED (<130/80) BP CONTROLLED (<130/80) [facility] Start: 05-10-2023 BP CONTROLLED (<130/80) BP CONTROLLED (<130/80) [facility] in Start: 05-06-2023 Blood chemistry [facility] [...] [facility] Start: 04-28-2023 Care regimes management [facility] Start: 04-28-2023 Notification of physician [facility] Start: 04-28-2023 End: 04-28-2023 [facility] Start: 04-28-2023 Covid-19 Vaccine () Covid-19 Vaccine () [facility] Start: 04-28-2023 Influenza vaccination [facility] Start: 04-28-2023 Urine culture Urine Culture [facility] [...] 04-18-2023 Adult depression screening assessment DEPRESSION SCREENING [facility] Start: 04-18-2023 ANNUAL PCP TEAM CHRONIC DISEASE VISIT ANNUAL PCP TEAM CHRONIC DISEASE VISIT [facility] Start: 04-18-2023 BP CONTROLLED (<130/80) BP CONTROLLED (<130/80) [facility] in Start: 02-14-2023 Hemoglobin A1c/Hemoglobin.total in Blood HBA1C [facility] Start: 01-25-2023 End: 03-27-2023 ALBUMIN/CREAT RATIO RND UR ALBUMIN/CREAT RATIO RND UR Lab Routine Type 1 diabetes mellitus with hyperglycemia, with long-term current use of insulin (HCC) Expected: 01/25/2023, Expires: 03/27/2023 [facility] Work Phone: Comment on above: Expected: 01/25/2023, Expires: Start: 10-04-2022 End: 10-04-2023 CBC W Auto Differential panel - Blood CBC auto differential Lab Routine Psoriasis vulgaris Encounter for long-term current use of high risk medication Expected: 10/04/2022 (Approximate), Expires: 10/04/2023 [facility] Work Phone: Comment on above: Expected: 10/04/2022 (Approximate), Expi res: 10/04/2023 Start: 10-04-2022 End: 10-04-2023 Comprehensive metabolic 1998 panel - Serum or Plasma Comprehensive metabolic panel Lab Routine Psoriasis vulgaris Encounter for long-term current use of high risk medication Expected: 10/04/2022 (Approximate), Expires: 10/04/2023 [facility] [employer] Comment on above: Expected: 10/04/2022 (Approximate), Expi res: 10/04/2023 Start: 10-04-2022 End: 10-04-2023 Hepatitis A virus IgM Ab [Presence] in Serum or Plasma by Immunoassay Hepatitis A antibody, IgM Lab Routine Psoriasis vulgaris Encounter for long-term current use of high risk medication Screening for viral disease Expected: 10/04/2022 (Approximate), Expires: 10/04/2023 [email or web address] [employer] Comment on above: Expected: 10/04/2022 (Approximate), Expi res: 10/04/2023 Start: 10-04-2022 End: 10-04-2023 Hepatitis B virus core IgM Ab [Presence] in Serum or Plasma by Immunoassay Hepatitis B core antibody, IgM Lab Routine Psoriasis vulgaris Encounter for long-term current use of high risk medication Screening for viral disease Expected: 10/04/2022 (Approximate), Expires: 10/04/2023 [email or web address] Comment on above: Expected: 10/04/2022 (Approximate), Expi res: 10/04/2023 Start: 10-04-2022 End: 10-04-2023 Hepatitis B virus surface Ab [Units/volume] in Serum or Plasma by Immunoassay Hepatitis B surface antibody Lab Routine Psoriasis vulgaris Encounter for long-term current use of high risk medication Screening for viral disease Expected: 10/04/2022 (Approximate), Expires: 10/04/2023 [email or web address] Comment on above: Expected: 10/04/2022 (Approximate), Expi res: 10/04/2023 Start: 10-04-2022 End: 10-04-2023 Hepatitis B virus surface Ag [Presence] in Serum or Plasma by Immunoassay Hepatitis B surface antigen Lab Routine Psoriasis vulgaris Encounter for long-term current use of high risk medication Screening for viral disease Expected: 10/04/2022 (Approximate), Expires: 10/04/2023 [email or web address] [employer] Comment on above: Expected: 10/04/2022 (Approximate), Expi res: 10/04/2023 Start: 10-04-2022 End: 10-04-2023 Hepatitis C virus Ab [Presence] in Serum or Plasma by Immunoassay Hepatitis C antibody Lab Routine Psoriasis vulgaris Encounter for long-term current use of high risk medication Screening for viral disease Expected: 10/04/2022 (Approximate), Expires: 10/04/2023 [email or web address] Comment on above: Expected: 10/04/2022 (Approximate), Expi res: 10/04/2023 Start: 10-04-2022 End: 10-04-2023 HIV 1+2 Ab+HIV1 p24 Ag [Presence] in Serum or Plasma by Immunoassay HIV-1 and HIV-2 Antigen-Antibody Screen Lab Routine Psoriasis vulgaris Encounter for long-term current use of high risk medication Screening for viral disease Expected: 10/04/2022 (Approximate), Expires: 10/04/[address] [facility] [employer] Comment on above: Expected: 10/04/2022 (Approximate), Expi res: 10/04/2023 Start: 10-04-2022 End: 10-04-2023 QUANTIFERON TB GOLD QUANTIFERON TB GOLD Lab Routine Psoriasis vulgaris Encounter for long-term current use of high risk medication Expected: 10/04/2022 (Approximate), Expires: 10/04/[address] [facility] [employer] Comment on above: Expected: 10/04/2022 (Approximate), Expi res: 10/04/2023 Start: 08-28-2022 DEPRESSION ASSESSMENT DEPRESSION ASSESSMENT [facility] Start: 07-11-2022 End: 09-10-2022 Hemoglobin A1c in Blood HGB A1C Lab Routine Type 1 diabetes mellitus with hyperglycemia (HCC) Insulin pump status Expected: 07/11/2022, Expires: 09/10/2022 [facility] Work Phone: Comment on above: Expected: 07/11/2022, Expires: 3 Start: 07-11-2022 End: 09-10-2022 THYROID PEROXIDASE ANTIBODY BLOOD THYROID PEROXIDASE ANTIBODY BLOOD Lab Routine Type 1 diabetes mellitus with hyperglycemia (HCC) Insulin pump status Abnormal results of thyroid function studies Expected: 07/11/2022, Expires: 09/10/2022 [facility] Work Phone: Comment on above: Expected: 07/11/2022, Expires: 3 Start: 07-11-2022 End: 09-10-2022 Thyrotropin [Units/volume] in Serum or Plasma TSH BLD Lab Routine Type 1 diabetes mellitus with hyperglycemia (HCC) Insulin pump status Abnormal results of thyroid function studies Expected: 07/11/2022, Expires: 09/10/2022 [facility] Work Phone: Comment on above: Expected: 07/11/2022, Expires: 3 Start: 07-11-2022 End: 09-10-2022 Thyroxine (T4) free [Mass/volume] in Serum or Plasma T4 FREE/FREE THYROX Lab Routine Type 1 diabetes mellitus with hyperglycemia (HCC) Insulin pump status Abnormal results of thyroid function studies Expected: 07/11/2022, Expires: 09/10/2022 [facility] Work Phone: Comment on above: Expected: 07/11/2022, Expires: 3 Start: 07-02-2022 Hemoglobin A1c/Hemoglobin.total in Blood HBA1C [facility] Start: 04-28-2022 Influenza vaccination [facility] Start: 04-18-2022 End: 06-18-2022 Chlamydia trachomatis+Neisseria gonorrhoeae DNA [Presence] in Urine by DANIEL with probe detection GC/CHLAMYDIA AMPLIF, URINE Microbiology Routine Menstrual irregularity Screening for STD (sexually transmitted disease) Expected: 04/18/2022, Expires: 06/18/2022 [facility] Work Phone: Comment on above: Expected: 04/18/2022, Expires: 2 Start: 04-18-2022 End: 06-18-2022 Choriogonadotropin ( test) [Presence] in Urine HCG QUAL UR Lab Routine Menstrual irregularity Expected: 04/18/2022, Expires: 06/18/2022 [facility] Work Phone: Comment on above: Expected: 04/18/2022, Expires: 2 Start: 02-04-2022 Hepatitis B surface antibody level LDL CHOLESTEROL [facility] Start: 08-28-2021 DEPRESSION ASSESSMENT DEPRESSION ASSESSMENT [facility] Start: 05-27-2021 Hemoglobin A1c/Hemoglobin.total in Blood HBA1C [facility] Start: 12-23-2020 Glaucoma screening Dilated Retinal Exam [facility] Start: 12-23-2020 Hepatitis C antibody, confirmatory test DILATED RETINAL EXAM [facility] Start: 03-30-2019 PAP TESTING PAP TESTING [facility] Start: 03-21-2018 Diabetes: Urine Albumin-Creatinine Ratio for Kidney Health Diabetes: Urine Albumin-Creatinine Ratio for Kidney Health [facility] Start: 03-21-2018 Hepatitis B screening URINE ALBUMIN:CREATININE RATIO [facility] Start: 11-23-2016 Adult depression screening assessment DEPRESSION SCREENING [facility] Start: 11-12-2016 3 comp foot exam completed DIABETIC FOOT EXAM [facility] Start: 01-01-2014 PNEUMOCOCCAL (2 - PCV) PNEUMOCOCCAL (2 - PCV) [facility] Start: 01-01-2014 Pneumococcal vaccination [facility] Start: 2013 HEPATITIS B (1 of 3 - Risk 3-dose series) HEPATITIS B (1 of 3 - Risk 3-dose series) [facility] Start: 2013 Hepatitis B Vaccine (1 of 3 - 19+ 3-dose series) Hepatitis B Vaccine (1 of 3 - 19+ 3-dose series) [facility] Start: 2013 Hepatitis B Vaccines (1 of 3 - 19+ 3-dose series) Hepatitis B Vaccines (1 of 3 - 19+ 3-dose series) [facility] Start: 2013 Urine screening for protein Diabetes: Urine Protein Screening [facility] Start: 12-11-2012 HPV Vaccine (3 - 3-dose series) HPV Vaccine (3 - 3-dose series) [facility] Start: 12-11-2012 HPV Vaccines (3 - 3-dose series) HPV Vaccines (3 - 3-dose series) [facility] Start: 11-06-2012 Hepatitis A Vaccines (2 of 2 - 2-dose series) Hepatitis A Vaccines (2 of 2 - 2-dose series) [facility] Start: 2012 ANNUAL PCP TEAM CHRONIC DISEASE VISIT ANNUAL PCP TEAM CHRONIC DISEASE VISIT [facility] Start: 2012 BP CONTROLLED (<130/80) BP CONTROLLED (<130/80) [facility] Start: 2012 Depression Screening Depression Screening [facility] Start: 2012 Diabetes: Urine Albumin-Creatinine Ratio for Kidney Health Diabetes: Urine Albumin-Creatinine Ratio for Kidney Health [facility] Start: 2012 Hepatitis B surface antibody level LDL CHOLESTEROL [facility] Start: 2007 Varicella vaccination Varicella Vaccines (1 of 2 - 13+ 2-dose series) [facility] Start: 2006 Depression Monitoring Depression Monitoring [facility] Start: 2006 Depression Screening Depression Screening [facility] Start: 2004 Diabetic foot examination Diabetes: Foot Exam [facility] Start: 2004 Glaucoma screening Diabetes: Retinopathy Screening [facility] Start: 2004 Preventive dental service Diabetes: Dental Exam [facility] Start: 2000 PNEUMOCOCCAL (1 - PCV) PNEUMOCOCCAL (1 - PCV) [facility] Start: 1999 COVID-19 VACCINE (#1) COVID-19 VACCINE (#1) [facility] Start: 1999 COVID-19 VACCINE (1) COVID-19 VACCINE (1) [facility] Start: 1995 MMR Vaccines (1 of 1 - Standard series) MMR Vaccines (1 of 1 - Standard series) [facility] Start: 1995 Varicella vaccination Varicella Vaccines (1 of 2 - 2-dose childhood series) [facility] Start: 01-27-1995 COVID-19 VACCINE (#1) COVID-19 VACCINE (#1) [facility] Start: 1994 Hemoglobin A1c measurement Diabetes: Hemoglobin A1C [facility] Start: 1994 HEPATITIS B (1 of 3 - 3-dose series) HEPATITIS B (1 of 3 - 3-dose series) [facility] Start: 1994 Hepatitis B Vaccine (1 of 3 - 3-dose series) Hepatitis B Vaccine (1 of 3 - 3-dose series) [facility] Start: 1994 Hepatitis B Vaccines (1 of 3 - 3-dose series) Hepatitis B Vaccines (1 of 3 - 3-dose series) [facility] Start: 1994 Lipid panel Lipid Panel [facility] Start: 1994 Medicare Advantage Annual Wellness Visit (AWV) Medicare Advantage Annual Wellness Visit (AWV) [facility] Anion gap measurement [facility] Anion gap measurement [facility] Anion gap measurement [facility] Anion gap measurement [facility] Anion gap measurement [facility] Anion gap measurement [facility] Anion gap measurement [facility] Anion gap measurement [facility] Anion gap measurement [facility] Anion gap measurement [facility] Anion gap measurement [facility] Anion gap measurement [facility] Anion gap measurement [facility] Anion gap measurement [facility] [place] [place] Bacteria identified in Urine by Culture URINE CULTURE Microbiology Routine Left flank pain Ordered: 01/25/2023 [facility] Work Phone: Comment on above: Ordered: 01/25/2023 [...] Screen for sexually transmitted diseases Ordered: 06/07/2022 [facility] Work Phone: Comment on above: Ordered: 06/07/2022 Chlamydia trachomatis+Neisseria gonorrhoeae DNA [Presence] in Unspecified specimen by DANIEL with probe detection GONORRHEA/CHLAMYDIA NAAT Lab Routine Encounter for gynecological examination (general) (routine) without abnormal findings Encounter for screening for malignant neoplasm of cervix Screening for human papillomavirus (HPV) Irregular menstrual bleeding Routine screening for STI (sexually transmitted infection) 07/10/2024 12:13 PM [facility] Chloride [Moles/volu me] in Serum or [...] Chloride [Moles/volu me] in Serum or Plasma [facility] Clostridioides diffi cile DNA [Presence] [...] current use of insulin (HCC) Ordered: 03/12/2024 [facility] Work Phone: Comment on above: Ordered: 03/12/2024 [...] of renal function [facility] Neutrophil count [facility] Neutrophil count [facility] Neutrophil count [facility] Neutrophil count [facility] Neutrophil count [facility] Neutrophil count [facility] Neutrophil count [facility] Neutrophil percent differential count [facility] Neutrophil percent differential count [facility] Neutrophil percent differential count [facility] Neutrophil percent differential count [facility] Neutrophil percent differential count [facility] Neutrophil percent differential count [facility] Neutrophil percent differential count [facility] Ova and parasites identified in Unspecified specimen by Light microscopy [facility] PAP TEST PAP TEST Lab [facility] for screening for malignant neoplasm of cervix Screening for human papillomavirus (HPV) 07/10/2024 12:13 PM [facility] Patient Education [facility] Work Phone: Patient referral [facility] Work Phone: Platelets [#/volume] in Blood [facility] [...] for STD (sexually transmitted disease) Ordered: 04/18/2022 [facility] Work Phone: Comment on above: Ordered: 04/18/2022 TRICHOMONAS VAGINALI S NAAT TRICHOMONAS VAGINALIS NAAT Lab Routine Encounter for gynecological examination (general) (routine) without abnormal findings Encounter for screening for malignant neoplasm of cervix Screening for human papillomavirus (HPV) Irregular menstrual bleeding Routine screening for STI (sexually transmitted infection) 07/10/2024 12:13 PM [facility] Urea nitrogen [Mass/volume] in Serum or [...] Urea nitrogen [Mass/volume] in Serum or Plasma [facility] Immunizations Immunization Date Immunization Notes Care Provider Genia bhat 11-05-2019 influenza, injectabl e, quadrivalent, preservative free Autumn Valadez OPERATIONS REPRESENTATIVE.GRAIN INSPECTOR Work Phone: [facility] Work Phone: 11-05-2019 influenza virus vacc ine, unspecified formulation Leesa Huddleston PA-C Work Phone: [facility] 06-14-2016 influenza, seasonal, injectable Autumn Valadez OPERATIONS REPRESENTATIVE.GRAIN INSPECTOR Work Phone: [facility] Work Phone: 05-30-2016 influenza nasal, unspecified formulation Autumn Valadez OPERATIONS REPRESENTATIVE.[facility] Work Phone: [facility] Work Phone: 05-30-2016 influenza virus vacc ine, unspecified formulation ANITA COMER MD [facility] 06-05-2015 influenza, seasonal, injectable, preservative free Autumn Valadez OPERATIONS REPRESENTATIVE.[facility] Work Phone: [facility] Work Phone: 05-23-2014 influenza virus vacc ine, unspecified formulation Leesa Huddleston PA-C Work Phone: [facility] 05-23-2014 influenza, seasonal, injectable Ccf Provider [facility] Work Phone: 04-16-2014 tetanus toxoid, redu luis eduardo diphtheria toxoid, and acellular pertussis vaccine, adsorbed [facility]cf Provider [facility] 01-01-2013 pneumococcal polysaccharide vaccine, 23 valent Autumn Valadez OPERATIONS REPRESENTATIVE.[facility] Work Phone: [facility] Work Phone: 08-11-2012 human papilloma viru s vaccine, quadrivalent Autumn Valadez OPERATIONS REPRESENTATIVE.[facility] Work Phone: [facility] Work Phone: 08-11-2012 HPV, unspecified formulation Leesa Huddleston PA-C Work Phone: [facility] 06-12-2012 human papilloma viru s vaccine, quadrivalent Autumn Valadez OPERATIONS REPRESENTATIVE.[facility] Work Phone: [facility] Work Phone: 05-09-2012 hepatitis A vaccine, pediatric/adolescent dosage, 2 dose schedule Autumn Valadez OPERATIONS REPRESENTATIVE.[facility] Work Phone: [facility] Work Phone: 05-09-2012 hepatitis A and hepatitis B vaccine Leesa Huddleston PA-C Work Phone: [facility] 11-03-2009 meningococcal polysaccharide (groups A, C, Y and W-135) diphtheria toxoid conjugate vaccine (MCV4P) Autumn Valadez OPERATIONS REPRESENTATIVE.GRAIN INSPECTOR Work Phone: [facility] Work Phone: 11-03-2009 tetanus toxoid, redu luis eduardo diphtheria toxoid, and acellular pertussis vaccine, adsorbed Autumn Valadez OPERATIONS REPRESENTATIVE.[facility] Work Phone: [facility] Work Phone: Payers Date Payer Category Payer Self-pay 2022 Medicare HMO [employer]IC[employer] [id number] 2019 Medicare (Managed Care) [facility] [id number] 2019 Medicare [id number] 2017 Medicaid [id number]. [id number] 2017 Medicare [id number]. [id number] 2017 Medicare [id number]. 1.13.159.2. [id number] 2012 Medicaid [id number] 1994 Unknown [id number] 2.0.1.425267.3.579.2. 903 Unknown [id number] .0.1.542991.3.579.2. 462 Unknown [id number] 2..1.261116.3.579.2. 462 Unknown [id number] 2.840.1.849656.3.579.2. 462 Unknown [id number] .0.1.993062.3.579.2. 462 Unknown [id number] 2.840.1.040514.3.579.2. 462 Unknown [id number] 2.840.1.214406.3.579.2. 462 Unknown [id number] 2.0.1.051852.3.579.2. 462 Unknown [id number] 2.16.840.1.690714.3.579.2. 462 Unknown [id number] 2.16.840.1.938333.3.579.2. 462 Unknown [id number] 2.16.840.1.844443.3.579.2. 462 Unknown [id number] 2.16.840.1.648825.3.579.2. 462 Unknown [id number] 2.16.840.1.082067.3.579.2. 462 Unknown [id number] 2.16.840.1.010691.3.579.2. 462 Unknown [id number] 2.16.840.1.419127.3.579.2. 462 Unknown [id number] 2.840.1.348400.3.579.2. 462 Unknown [id number] 2.840.1.384190.3.579.2. 462 Unknown [id number] 2.16.840.1.068181.3.579.2. 462 Unknown [id number] 2.16.840.1.894078.3.579.2. 462 Unknown [id number] 2.16.840.1.946418.3.579.2. 462 Unknown [id number] 2.16840.1.580355.3.579.2. 462 Unknown [id number] 2.16840.1.594332.3.579.2. 462 Unknown [id number] 2.16.840.1.535831.3.579.2. 462 Unknown [id number] 2.16.840.1.791637.3.579.2. 462 Unknown [id number] 2.16.840.1.013719.3.579.2. 462 Unknown [id number] 2.16.840.1.852838.3.579.2. 462 Unknown [id number] 2.16.840.1.065291.3.579.2. 462 Unknown [id number] 2.16.840.1.523855.3.579.2. 462 Unknown [id number] 2.16.840.1.765502.3.579.2. 462 Unknown [id number] 2.16.840.1.365027.3.579.2. 462 Unknown [id number] 2.16.840.1.076412.3.579.2. 462 Unknown [id number] 2.16.840.1.081946.3.579.2. 462 Unknown [id number] 2.16.840.1.345643.3.579.2. 462 Unknown [id number] 2.16.840.1.780151.3.579.2. 462 Unknown [id number] 2.16.840.1.609569.3.579.2. 462 Unknown [id number] 2.840.1.388413.3.579.2. 462 Unknown [id number] 2.16840.1.879973.3.579.2. 462 Unknown [id number] 2.840.1.792397.3.579.2. 462 Unknown [id number] 2.16840.1.812014.3.579.2. 462 Unknown [id number] 2.16.840.1.946574.3.579.2. 462 Unknown [id number] 2.16.840.1.951048.3.579.2. 462 Unknown [id number] 2.16.840.1.034343.3.579.2. 462 Unknown [id number] 2.16.840.1.145144.3.579.2. 462 Unknown [id number] 2.16.840.1.012684.3.579.2. 462 Unknown [id number] 2.16.840.1.140425.3.579.2. 462 Unknown [id number] 2.16.840.1.062543.3.579.2. 462 Unknown [id number] 2.16.840.1.379490.3.579.2. 462 Unknown [id number] 2.16.840.1.662240.3.579.2. 462 Unknown [id number] 2.16.840.1.776735.3.579.2. 462 Unknown [id number] 2.16.840.1.661241.3.579.2. 462 Unknown [id number] 2.16.840.1.820043.3.579.2. 462 Unknown [id number] 2.16840.1.902608.3.579.2. 462 Unknown [id number] 2.16840.1.503710.3.579.2. 462 Social History Date Type Detail Facility Start: 12-31-2019 End: 07-10-2024 Tobacco smoking status NHIS Ex-smoker [facility] Start: 06-28-2011 End: 06-28-2019 History of tobacco use Current smoker [facility] Start: 06-28-2011 End: 06-28-2019 History of tobacco use Cigarette Smoker [facility] Start: 12-31-2019 End: 11-14-2023 Cigarettes smoked current (pack per day) - Reported 0.3 [facility] Start: 12-31-2019 End: 07-10-2024 Tobacco use and exposure Smokeless tobacco non-user [facility] Start: 11-25-2020 End: 10-22-2022 Alcohol intake Current non-drinker of alcohol (finding) [facility] Start: 11-02-2020 End: 02-03-2023 History SDOH Social Connections Phone 5 [facility] Start: 11-02-2020 End: 02-03-2023 History SDOH Social Connections [facility] 1 [facility] Start: 11-02-2020 End: 02-03-2023 History SDOH Social Connections Membership 2 [facility] Start: 11-02-2020 History SDOH Social Connections Living 7 [facility] Start: 11-02-2020 History SDOH Physica l Activity DPW 4 [facility] Start: 11-02-2020 History SDOH Physica l Activity MPS 3 [facility] Start: 1995 [facility] Start: 04-26-2023 End: 08-07-2023 Tobacco smoking status Tobacco smoking consumption unknown (finding) [facility] Sex Assigned At Sex [facility] Start: 02-25-2022 End: 10-04-2022 Exposure to SARS-CoV-2 (event) Not sure [facility] Start: 12-08-2022 End: 07-19-2024 Alcohol intake Current drinker of alcohol (finding) [facility] Start: 12-08-2022 Education 13 [facility] Start: 12-08-2022 Alcohol Comment very rarely [facility] Start: 03-20-2023 Tobacco smoking stat [facility] Never smoked tobacco [facility] Start: 03-20-2023 End: 11-14-2023 Tobacco use panel [facility] Start: 03-20-2023 Alcohol Comment occasional [facility] Start: 1995 Sex Assigned At Not on file [facility] Start: 10-30-2020 Gender identity Identifies as female gender (finding) [facility] Start: 10-30-2020 Sexual orientation Bisexual (finding ) [facility] Start: 01-18-2021 End: 11-14-2023 Alcohol intake Ex-drinker (finding) [facility] Do you belong to any clubs or organizations such as zoroastrian groups, unions, fraternal or athletic groups, or school groups? No [facility] Are you now , , , , never or living with a partner? Never [facility] How hard is it for y ou to pay for the very basics like food, housing, medical care, and heating Not hard at all [facility] Do you feel stress - tense, restless, nervous, or anxious, or unable to sleep at night because your mind is troubled all the time - these days [OSQ] Not at all [facility] (I/We) worried wheth er (my/our) food would run out before (I/we) got money to buy more. Never true [facility] In the past 12 month s, was there a time when you were not able to pay the mortgage or rent on time? Yes [facility] Start: 03-28-2022 Sex Female (finding) [facility] NEGATED: Highlighted row [facility] Medical Equipment Procedure Code Equipment Code Equipment Original Text Equipment Identifier Dates Graft Vasc 30cm 28mm [facility] - [id number] Start: 12-09-2014 Comment on above: Description: ascendi ng aorta Slv Scler 30mm 2.4mm 1.5mm Dinorah - [id number] Start: 10-29-2012 Comment on above: Description: Style # 72 Silicone Sleeve Strip Scler [id number] Dinorah Strl - [id number] Start: 10-29-2012 Comment on above: Description: Style 4 050 Gas Io Ispan Vsn Sys 125gm Sf6 - [id number] Start: 10-29-2012 Comment on above: Description: SF6 gas 22% Mcdonald Cv 6x6in Thk1.65mm Ptfe - [id number] Start: 12-09-2014 Lens Iol +15.5 Mary Jo 13mm 5.5mm - [id number] Start: 05-14-2014 [id number], [id number], [id number], [id number], [id number], [id number], [id number], [id number] Start: 05-18-2020 End: 06-25-2025 Comment on above: Use as instructed to check blood glucose 7 times daily. 10 x daily DX Code: O24.011 on insulin RUFINA voucher has been faxed Use as instructed to check blood glucose 5 times daily. E10.65 Use as instructed to test blood sugar 4 times daily. E10.65 Pen Needle, Diabetic (Ultra-Thin Ii Ins Pen [place]) 29 gauge x 1/2 needle Start: 08-10-2023 Pen Needle, Diabetic (Ultra-Thin Ii Ins Pen [place]) 29 gauge x 1/2 needle Start: 08-10-2023 Pen Needle, Diabetic (Ultra-Thin Ii Ins Pen [place]) 29 gauge x 1/2 needle Start: 08-10-2023 Pen Needle, Diabetic (Ultra-Thin Ii Ins Pen [place]) 29 gauge x 1/2 needle Start: 08-10-2023 Pen Needle, Diabetic (Ultra-Thin Ii Ins Pen [place]) 29 gauge x 1/2 needle Start: 08-10-2023 Pen Needle, Diabetic (Ultra-Thin Ii Ins Pen [place]) 29 gauge x 1/2 needle Start: 08-10-2023 Loop Recorder-[id number] Reveal [id number] Start: 09-15-2014 Goals Date Patient Goal Desired Activity /State Personal health goal Functional Status Date Assessment Result Facility 10-18-2023 Functional status Ambulates [facility] Work Phone: 08-10-2023 Functional status Up ad narendra [facility] Work Phone: 04-29-2023 Functional status Ambulates;Bedr est;Bathro om Privilege [facility] Work Phone: 02-04-2023 Are you deaf, or do you have serious difficulty hearing No 02/04/2023 2:39 PM Jhoana Mart RN No [facility] 02-04-2023 Are you blind, or do you have serious difficulty seeing, even when wearing glasses No 02/04/2023 2:39 PM Jhoana Mart, STIVEN No [facility] 02-04-2023 Do you have serious difficulty walking or climbing stairs No 02/04/2023 2:39 PM Jhoana Mart, STIVEN No [facility] 02-04-2023 Do you have difficul ty dressing or bathing No 02/04/2023 2:39 PM Jhoana Mart, STIVEN No [facility] 02-04-2023 Because of a physica l, mental, or emotional condition, do you have difficulty doing errands alone such as visiting a physician's office or shopping No 02/04/2023 2:39 PM Jhoana Mart, STIVEN No [facility] Mental Status Date Assessment Result Facility 10-17-2023 Cognitive function Awake;Alert;Appropriat e [facility] Work Phone: 09-20-2023 Cognitive function Level Of Cons ciousness Awake;Alert;Appropriate;Fol lows Commands [facility] Work Phone: 08-10-2023 Cognitive function Voice/Name [facility] Work Phone: 04-29-2023 Cognitive function Voice/Name [facility] Work Phone: 04-26-2023 Cognitive function Voice/Name [facility] Work Phone: 02-04-2023 Because of a physica l, mental, or emotional condition, do you have serious difficulty concentrating, remembering, or making decisions No 02/04/2023 2:39 PM EDT Jhoana Colunga RN No [facility] Clinical Notes 01-28-2016 to 03-08-2025 Mishel Ortez PA-C - 01/27/2025 1:00 PM EDTTelephone Encounter - Guero Hammer LPN - 11/11/2024 1:55 PM EDTTelephone Encounter - Guero Hammer LPN - 11/11/2024 1:55 PM EDT Note Date & Type Note Facility 03-08-2025 Note [facility] 03-05-2025 Note [facility] 02-21-2025 Note [facility] 01-27-2025 History of Present illness Narrative DATE OF SERVICE: 01/27/2025 PATIENT NAME: Kathleen Villa : 1995 AGE: 29 y.o. CLINIC NUMBER: [id number] Visit type: Established patient Chief Complaint Patient [...] Adhesive? Yes- adhesives. Social History: Born/raised in [place]. Excessive sun exposure: Yes Used tanning beds: [...] ingredient(s). Try to limit sun exposure to collar stitcher or late evening hours. Patient advised to [...] for this encounter. documented in this encounter [facility] 01-26-2025 Note [facility] 12-16-2024 Note [facility] 11-11-2024 Telephone encounter Note Please let her know that her x-ray demonstrates a significantly large amount of stool throughout the colon. I am going to send in Trulance for her to try spoke with patient and she is aware of new Rx was sent to pharmacy. Guero Hammer LPN [facility] 11-11-2024 Miscellaneous Notes Please let her know that her x-ray demonstrates a significantly large amount of stool throughout the colon. I am going to send in Trulance for her to try spoke with patient and she is aware of new Rx was sent to pharmacy. Guero Hammer LPN documented in this encounter [facility] 11-11-2024 History of Present illness Narrative Radiology [...] PATIENT PRESENTS WITH AN IMPLANTABLE OR ATTACHED PAPER MACHINE OPERATOR: No RADIOLOGY DEPARTMENT: General X-ray: Exam(s) Completed: Abdomen X-Ray: Abdomen PERIPHERAL IV DATA: Not applicable SIGNED BY: RT Eugenio(R) November 11, 2024 11:07 AM documented in this encounter [facility] 11-11-2024 Note HNO ID: [id number] Author: RICCARDO, VAMSI, RT(R) Service: Radiology Author [...] PATIENT PRESENTS WITH AN IMPLANTABLE OR ATTACHED PAPER MACHINE OPERATOR: No RADIOLOGY DEPARTMENT: General X-ray: Exam(s) Completed: Abdomen X-Ray: Abdomen PERIPHERAL IV DATA: Not applicable SIGNED BY: RT Eugenio(R) November 11, 2024 11:07 AM [facility] 11-11-2024 Note HNO ID: [id number] Author: LETICIA HYLTON, DO Service: ? Author [...] every 24 hours. 38.7 mL 1 Insulin [place], Disposable, (PEN NEEDLE) 32 gauge x /32 [...] no edema RESPIRATORY: No dyspnea : neg DERRICK WORKER: neg The remainder of the review of [...] ABDOMEN 1V SUPINE (more content not included)... [facility] 11-11-2024 History of Present illness Narrative FOLLOW [...] every 24 hours. 38.7 mL 1 Insulin [place], Disposable, (PEN NEEDLE) 32 gauge x 5/32 [...] no edema RESPIRATORY: No dyspnea : neg DERRICK WORKER: neg The remainder of the review of [...] Hylton DO 11/11/2024 documented in this encounter [facility] 11-06-2024 Note [facility] 11-05-2024 Miscellaneous Notes Agree with ER. The [...] on the phone. documented in this encounter [facility] 11-05-2024 Telephone encounter Note Agree with ER. The patient actually does not have gastroparesis although she keeps stating that she does. Her smart pill in 2020 demonstrated no evidence of gastroparesis. What she has is chronic constipation and abdominal pain. [facility] 11-05-2024 Telephone encounter Note Called patient and [...] functioning appropriately. Please advice. Guero Hammer LPN [facility] 11-05-2024 Telephone encounter Note Patient called and left v/m crying. States she has an appointment but is having some major issues and needs to talk to someone about what to do. She did not state what kinds of issues she is having however she was crying on the phone. [facility] Work Phone: 10-21-2024 Note [facility] 10-10-2024 Telephone encounter Note Form re-faxed per [facility] request [facility] 10-10-2024 Miscellaneous Notes Form re-faxed per [facility] request Form signed. Jessica Guerrero APRN.CNP Clinical notes and DWO for infusion supplies placed on providers desk to review and advise. To be faxed to [facility] Medical [phone] Patient has been identified by name and date of : Yes Type of form: [facility] Medical Physician Order for Insulin Pump Therapy and Diabetes Testing Form received via: abstract When form is completed, fax form to fax number provided. Form has been forwarded to: Provider's mailbox. Provider name: FRIEDA Urena documented in this encounter [facility] 10-02-2024 Telephone encounter Note Form signed. Jessica Guerrero APRN.CNP [facility] 10-02-2024 Telephone encounter Note Clinical notes and DWO for infusion supplies placed on providers desk to review and advise. To be faxed to [facility] Medical [phone] [facility] 10-02-2024 Telephone encounter Note Patient has been identified by name and date of : Yes Type of form: [facility] Medical Physician Order for Insulin Pump Therapy and Diabetes Testing Form received via: abstract When form is completed, fax form to fax number provided. Form has been forwarded to: Provider's mailbox. Provider name: FRIEDA Urena [facility] 09-02-2024 Note HNO ID: [id number] Author: LETICIA HYLTON, DO Service: ? Author Type: Physician Type: Progress Notes Filed: 09/02/2024 09:32 Note Text: FOLLOW UP VIRTUAL VISIT I have communicated my name and active licensure. The patient's identity and physical location were verified at the time of this visit. Either the patient or their legal claim service representative has been informed of the risks [...] every 24 hours. 38.7 mL 1 Insulin [place], Disposable, (PEN NEEDLE) 32 gauge x 5/32 [...] no edema RESPIRATORY: No dyspnea : Negative DERRICK WORKER: Negative The remainder of the review of [...] the local ER Leticia Hylton DO 09/02/2024 [facility] 09-02-2024 History of Present illness Narrative FOLLOW UP VIRTUAL VISIT I have communicated my name and active licensure. The patient's identity and physical location were verified at the time of this visit. Either the patient or their legal claim service representative has been informed of the risks [...] every 24 hours. 38.7 mL 1 Insulin [place], Disposable, (PEN NEEDLE) 32 gauge x 5/32 [...] no edema RESPIRATORY: No dyspnea : Negative DERRICK WORKER: Negative The remainder of the review of systems are negative. Reviewed with patient during visit today. PHYSICAL EXAMINATION: [facility] 06/04/2024 Estimated weight: GENERAL APPEARANCE: Well developed [...] Hylton DO 09/02/2024 documented in this encounter [facility] 08-07-2024 Telephone encounter Note Medication: Skyrizi 150mg/ml Dosing Schedule: 150mg every 12 weeks Prior Authorization: Submitted date: 08.07.2024 [place] reference #: [id number] Approval dates: 08.07.2024-08.27.2024 [facility] [phone] [facility] 08-07-2024 Miscellaneous Notes Medication: Skyrizi 150mg/ml Dosing Schedule: 150mg every 12 weeks Prior Authorization: Submitted date: 08.07.2024 [place] reference #: [id number] Approval dates: 08.07.2024-08.27.2024 [facility] [phone] documented in this encounter [facility] 08-03-2024 Note [facility] 07-24-2024 Telephone encounter Note [facility] form for CGM /Pump completed and signed per Provider for [employer] 780G pump and Guardian 4. Completed form and JOSE X2 documentation faxed as requested to [facility]. Lisa Aguilar LPN [facility] 07-24-2024 Miscellaneous Notes [facility] form for CGM /Pump completed and signed per Provider for [employer] 780G pump and Guardian 4. Completed form and JOSE X2 documentation faxed as requested to [facility]. Lisa Aguilar LPN Images from the original note were not included. Jessica Guerrero APRN.FRIEDA Garrido Ma Pool She was able to get upgraded pump recently. I am sending [place] [facility] and [employer] to start. She will need new supplies from [facility] including Guardian 4 CGM and supplies for [employer] 780 G. Jessica Guerrero APRN.GRAIN INSPECTOR documented in this encounter [facility] 07-23-2024 Note HNO ID: [id number] Author: VAMSI CARSON RN Service: ? Author [...] DATE: July 23, 2024 TIME: 8:47 AM [facility] 07-23-2024 History of Present illness Narrative DIABETES [...] TIME: 8:47 AM documented in this encounter [facility] 07-19-2024 Telephone encounter Note Images from the original note were not included. Jessica Guerrero APRN.FRIEDA Garrido Silvino Isma She was able to get upgraded pump recently. I am sending her to [employer] and [employer] to start. She will need new supplies from [facility] including Guardian 4 CGM and supplies for Med[employer]onic 780 G. Jessica Guerrero APRN.GRAIN INSPECTOR [facility] 07-19-2024 History of Present illness Narrative [facility] DIABETES VISIT VIRTUAL VISIT I have communicated my name and active licensure. The patient's identity and physical location were verified at the time of this visit. Either the patient or their legal claim service representative has been informed of the risks [...] 43 Units subcutaneously every 24 hours. Insulin [place], Disposable, (PEN NEEDLE) 32 gauge x 5/32 [...] long-term current use of insulin ([facility]) (primary encounter diagnosis) (Z96.41) Insulin pump status - Undetermined control - She was able to get upgraded pump back recently - Plans to send loaner back as it would be monthly charge - Will have her schedule visit with educator to start pump - Message sent to Umair at [employer] to help with upgrade to 780G and start Guardian 4 CGM - Will reach out to [facility] so she can get supplies - Update [...] I will reach out to Umair at [employer] about new pump and CGM 5) Update [...] months. Jessica Guerrero APRN.CNP Endocrinology & Metabolism [place] Some elements in this note were copied from my last note and have been updated as appropriate and reflect medical decision making today. documented in this encounter [facility] 07-19-2024 Note HNO ID: [id number] Author: JESSICA GUERRERO APRN.CNP Service: ? Author Type: Nurse Practitioner Type: Progress Notes Filed: 07/19/2024 15:15 Note Text: [facility] DIABETES VISIT VIRTUAL VISIT I have communicated my name and active licensure. The patient's identity and physical location were verified at the time of this visit. Either the patient or their legal claim service representative has been informed of the risks [...] 43 Units subcutaneously every 24 hours. Insulin [place], Disposable, (PEN NEEDLE) 32 gauge x 5/32 [...] ECG TRANSMIS W (more content not included)... [facility] 07-10-2024 Note HNO ID: [id number] Author: JASON PAREDES MD Service: ? Author [...] L2 SAB0 IAB0 Ectopic0 Multiple0 Live Births2 Office Services Assistant History LMP: 11/26/2022 (Exact Date), Having periods Age at Menarche: 12 Age at First : Age at Menopause: Office Services Assistant History Comments: Sexual Activity: Yes; Male Contraception: [...] discussed with the Patient or Patient's Authorized Salt Cutter. As applicable, any other physician, advance practice provider, medical student, or other health professional student that will be observing or involved in the sensitive examination for educational or training purposes was discussed with the Patient or Authorized Salt Cutter. The Patient or Authorized Salt Cutter has agreed to proceed with the sensitive [...] external genitalia normal, normal Bartholin's glands, urethra, Stidham's glands, no vulvar lesions, no cervical lesions, [...] or sooner as needed Jason Paredes MD [facility] 07-10-2024 History of Present illness Narrative Gilda [...] L2 SAB0 IAB0 Ectopic0 Multiple0 Live Births2 Office Services Assistant History LMP: 11/26/2022 (Exact Date), Having periods Age at Menarche: 12 Age at First : Age at Menopause: Office Services Assistant History Comments: Sexual Activity: Yes; Male Contraception: [...] discussed with the Patient or Patient's Authorized Salt Cutter. As applicable, any other physician, advance practice provider, medical student, or other health professional student that will be observing or involved in the sensitive examination for educational or training purposes was discussed with the Patient or Authorized Salt Cutter. The Patient or Authorized Salt Cutter has agreed to proceed with the sensitive [...] external genitalia normal, normal Bartholin's glands, urethra, Stidham's glands, no vulvar lesions, no cervical lesions, [...] Jason Paredes MD documented in this encounter [facility] 06-25-2024 Telephone encounter Note Message has been relayed to patient via phone. Patient verbalizes understanding. [employer] message sent for patients reference as requested. [facility] 06-25-2024 Miscellaneous Notes Message has been relayed to patient via phone. Patient verbalizes understanding. [employer] message sent for patients reference as requested. I recommend she sees transmission worker to review pump options- I am fine [...] any further questions or concerns, Jessica Guerrero APRN.GRAIN INSPECTOR JOSE- 03/12/24 NOV- 07/19/24 Spoke to patient [...] Insulin Lispro. Would like pen-injector sent to [facility] Discussed with provider in office Please advise Patient needs a new pump other than medtonic pump. She also needs pen novolog while she awaits a new pump documented in this encounter [facility] 06-25-2024 Telephone encounter Note I recommend she sees transmission worker to review pump options- I am fine [...] any further questions or concerns, Jessica Guerrero APRN.GRAIN INSPECTOR [facility] 06-25-2024 Telephone encounter Note JOSE- 03/12/24 NOV- [...] Insulin Lispro. Would like pen-injector sent to [facility] Discussed with provider in office Please advise [facility] 06-24-2024 Telephone encounter Note Patient needs a new pump other than medtonic pump. She also needs pen novolog while she awaits a new pump [facility] Work Phone: 06-17-2024 Telephone encounter Note Noted. Copy scanned into chart [facility] 06-17-2024 Miscellaneous Notes Noted. Copy scanned into chart Patient has been identified by name and date of : Yes Type of form: [employer] Medication Reconciliation Post Discharge V2 Form received via: Fax When form is completed, fax form to fax number provided. Form has been forwarded to: Provider's mailbox. Provider name: Dr. Joshua Quinteros documented in this encounter [facility] 06-17-2024 Telephone encounter Note Patient has been identified by name and date of : Yes Type of form: [employer] Medication Reconciliation Post Discharge V2 Form received via: Fax When form is completed, fax form to fax number provided. Form has been forwarded to: Provider's mailbox. Provider name: Dr. Joshua Quinteros [facility] 06-11-2024 Note [facility] 05-24-2024 Telephone encounter Note Spoke to pt. JOSE 03/12/24 ( we can sent notes over, if needed) NOV 07/19/24 We have not received any new order forms from [facility] or [employer]. Advised pt to reach out. [facility] 05-24-2024 Miscellaneous Notes Spoke to pt. [facility] 03/12/24 ( we can sent notes over, if needed) NOV 07/19/24 We have not received any new order forms from [facility] Advised pt to reach out. Patient has to reschedule her may appt and will be completely out of her pump supplies before her next June appt. Please advise she needs her pump suppllies Lantus refill sent in. Please keep me updated if any issues. Jessica Guerrero APRN.GRAIN INSPECTOR [facility] 03/12/24 Joshua CAMPA 05/28/24 Josue Pt uses [facility] Medical for supplies Has had loaner pump x3 months through [employer] and now has to return it or pay $3000 out of pocket. Advised pt she has to call [facility] and have them send us [...] using her old pump, which malfunctioned, so [employer] gave her a loaner,which she is now being told she has to send back or pay $3000 to keep it. She can't afford to pay the $3000,was told to call her online merchandiser for assistance. documented in this encounter [facility] 05-24-2024 Telephone encounter Note Patient has to reschedule her may appt and will be completely out of her pump supplies before her next June appt. Please advise she needs her pump suppllies [facility] Work Phone: 05-17-2024 Telephone encounter Note Lantus refill sent in. Please keep me updated if any issues. Jessica Guerrero APRN.FRIEDA [facility] 05-17-2024 Telephone encounter Note JOSE 03/12/24 Joshua CAMPA 05/28/24 Josue Pt uses [facility] Medical for supplies Has had loaner pump x3 months through [employer] and now has to return it or pay $3000 out of pocket. Advised pt she has to call [facility] and have them send us an order form for a new pump (have to see if insurance will pay for a new pump- Old pump was 5 years old) Told pt she has to let us know if she is without a pump and needs insulin ordered. Verbalized understanding. [facility] 05-16-2024 Telephone encounter Note Pt got a [...] pay the $3000,was told to call her online merchandiser for assistance. [facility] 05-06-2024 Telephone encounter Note Medication: Skyrizi 150mg/ml Dosing Schedule: 150mg every 12 weeks Prior Authorization: Submitted date: 05.06.2024 [place] reference #: [id number] Approval dates: 05.06.2024-08.27.2024 [facility] [phone] [facility] 05-06-2024 Miscellaneous Notes Medication: Skyrizi 150mg/ml Dosing Schedule: 150mg every 12 weeks Prior Authorization: Submitted date: 05.06.2024 [place] reference #: [id number] Approval dates: 05.06.2024-08.27.2024 [facility] [phone] documented in this encounter [facility] 04-08-2024 Telephone encounter Note Prescription Refill [...] Yazmin Zaldivar April 08, 2024 1:18 PM [facility] 04-08-2024 Miscellaneous Notes Prescription Refill Information The [...] 2024 1:18 PM documented in this encounter [facility] 03-12-2024 History of Present illness Narrative Images from the original note were not included. Last Visit: 12/13/2023 Ms. Villa is here for follow up regarding her DM Type 1. Is patient interested in MyChart? Patient uses it SMBG: Hyperglycemia: Yes, but rare Type of Monitor: [employer] 630G/ Guardian Frequency of Monitorin-8 times a [...] long-term current use of insulin ([facility]) (primary encounter diagnosis) (Z96.41) Insulin pump status Her pump malfunctioned 3 weeks ago ( end of January 2023 ) and [employer] sent her loaner pump which she brought [...] which included preparing to see the patient, [id number] patient care, completing clinical documentation, communicating results to the patient/family/caregiver, and care coordination (not separately reported). documented in this encounter [facility] 03-12-2024 Note HNO ID: [id number] Author: LISA AGUILAR LPN Service: ? Author [...] mg/dL Insulin du (more content not included)... [facility] 03-05-2024 Telephone encounter Note Faxed and filed. [facility] 03-05-2024 Miscellaneous Notes Faxed and filed. Signed On your desk. Please sign Patient has been identified by name and date of : Yes Type of form: [employer] Form received via: Fax When form is completed, fax form to fax number provided. Form has been forwarded to: SILVINO Liriano documented in this encounter [facility] 03-05-2024 Telephone encounter Note Signed [facility] Work Phone: 03-04-2024 Telephone encounter Note On your desk. Please sign [facility] 03-02-2024 Telephone encounter Note Patient has been identified by name and date of : Yes Type of form: Medical [employer] Form received via: Fax When form is completed, fax form to fax number provided. Form has been forwarded to: SILVINO Liriano [facility] 02-14-2024 Telephone encounter Note Spoke with patient [...] understanding. No further questions at this time. [facility] 02-14-2024 Miscellaneous Notes Spoke with patient via [...] pump on. Patient can be reached at [phone] documented in this encounter [facility] 02-14-2024 Telephone encounter Note Patient stated that her 630G pump malfunctioned and she had to get a new one. Patient needs to now what settings to put the pump on. Patient can be reached at [phone] [facility] 02-13-2024 Telephone encounter Note Images from the original note were not included. Returned patient's call. Pt states her pump got water on it and stopped working. Pt requests back up medication. Lantus and Humalog sent to the pharmacy of patient's preference. Jenn Solo MD Clinical Fellow PGY-4 Endocrinology and Metabolism [place] [facility] 02-13-2024 Miscellaneous Notes Images from the original note were not included. Returned patient's call. Pt states her pump got water on it and stopped working. Pt requests back up medication. Lantus and Humalog sent to the pharmacy of patient's preference. Jenn Solo MD Clinical Fellow PGY-4 Endocrinology and Metabolism [place] documented in this encounter [facility] 01-25-2024 Telephone encounter Note Returned pt's call. Pt scheduled for 02/01/24 for ILK. [facility] 01-25-2024 Miscellaneous Notes Returned pt's call. [...] not helping either. documented in this encounter [facility] 01-24-2024 Telephone encounter Note Patient left a voicemail on the nurses line returning ileana's call. [facility] 01-24-2024 Miscellaneous Notes Patient left a [...] not helping either. documented in this encounter [facility] 01-24-2024 Telephone encounter Note Attempted to contact patient to offer/schedule for ILK injection to the stubborn spot on her scalp. Advised to return call if she would like to schedule. [facility] 01-23-2024 Telephone encounter Note Spoke to patient today to set up delivery of Skyrizi. She states that she has a stubborn spot on her scalp that is not going away. Everything else is going well but the topicals are not helping either. [facility] 12-15-2023 Note HNO ID: [id number] Author: GOKYARA HEAD RN Service: ? Author [...] discharged from care coordination. 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 Chronic Care [3615] Prescriptions as of 12/15/2023 - promethazine (PHENERGAN) [...] (post-traumatic stress disorder) [F43.10] 12/25/2012 DVT prophylaxis [FIR7798] 12/25/2012 09/04/2013 DISPOSITION AND FOLLOW-UP [V999.01] 12/25/2012 09/04/2013 HTN (hypertension) [I10] Hypertension in , antepartum [O16.9] 09/19/2013 01/08/2014 GBS (group B Streptococcus carrier), +RV cultur*11/11/2013 04/16/2014 [Z34.90] 11/22/2013 04/16/2014 Diabetes mellitus in (HCC) [O24.919] 12/25/2013 04/16/2014 Diabetic ketoacidosis without coma associated w*01/08/2014 02/04/2023 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] 01/08/2014 DVT prophylaxis [LQO3038] 02/25/2014 04/16/2014 care and examination [Z39.2] 02/25/2014 04/16/2014 Near syncope [R55] 06/17/2014 Dyspnea [R06.00] 11/04/2014 Pre-op testing [Z01.818] 11/28/2014 Atelectasis [J98.11] 12/10/2014 Fluid overload [E87.70] 12/10/2014 12/15/2014 Tachycardia, unspecified [R00.0] 12/10/2014 12/12/2014 Post-operative pain [G89.18] (more content not included)... [facility] 12-13-2023 Instructions Jessica Guerrero APRN.CNP [...] in 3 months documented in this encounter [facility] 12-13-2023 History of Present illness Narrative Images [...] Other maternal great grandma I reviewed the Psychiatric Aides Teacher's notes with this visit for vital signs, [...] grandmother DM2 She is living at a intermediate currently, will be moving at the end [...] long-term current use of insulin ([facility]) (primary encounter diagnosis) (Z96.41) Insulin pump status - Worsening control - She is having frequent lows - Will adjust basal rate to help prevent low readings - I will reach out to [employer] regarding why CGM order is delayed as [...] months. Jessica Guerrero APRN.CNP Endocrinology & Metabolism [place] Some elements in this note were copied from my last note and have been updated as appropriate and reflect medical decision making today. documented in this encounter [facility] 12-13-2023 Note HNO ID: [id number] Author: JESSICA GUERRERO APRN.CNP Service: ? Author [...] Other maternal great grandma I reviewed the Psychiatric Aides Teacher's notes with this visit for vital signs, [...] living at a (more content not included)... [facility] 11-22-2023 Note HNO ID: [id number] Author: KYARA LUIS RN Service: ? Author Type: Registered Nurse Type: Progress Notes Filed: 11/22/2023 14:34 Note Text: Summary: TCM follow up TRANSITION CARE MANAGEMENT (TCM) FOLLOW-UP NOTE Provider Action/FYI Patient identified by name and date of : YES Summary: TCM follow up call placed, patient states doing well. Has been accepted for [employer], completed paperwork and turned in today. States will be moving in near future and Care and share to provide household furnishings. Per patient she has stopped smoking marijuana, focusing on improving mental health and is working 12 step program. Blood sugars remains stable, this am 181, has all medications, taking as directed. TCM completed will follow for care coordination. Rivet Sorter plan for next outreach: Will follow up Kyara Luis RN November 22, 2023 2:29 PM [facility] 11-22-2023 Note Patient Outreach (MR [facility]) KATHLEEN VILLA ([id number]) 1995 F CHT Date Time Provider Department 11/22/23 KYARA LUIS [facility] During your visit today, we recorded [...] TCM completed will follow for care coordination. Rivet Sorter plan for next outreach: Will follow up [...] - Rash Date Reviewed: 09/12/2023 Reviewed by: iLsa Aguilar LPN - Fully Assessed Reason for [...] [Q87.40] 12/25/2012 DM (diabetes mellitus) ([facility]) [E11.9] 12/25/2012 Gastroparesis due to DM ([facility]) [E11.43, K31.84] 12/25/2012 PTSD (post-traumatic stress disorder) [F43.10] 12/25/2012 DVT prophylaxis [[id number]] 12/25/2012 09/04/2013 DISPOSITION AND FOLLOW-UP [V999.01] 12/25/2012 09/04/2013 HTN (hypertension) [I10] Hypertension in , antepartum [O16.9] 09/19/2013 01/08/2014 GBS (group B Streptococcus carrier), +RV cultur*11/11/2013 04/16/2014 [Z34.90] 11/22/2013 04/16/2014 Diabetes mellitus in ([facility]) [O24.919] 12/25/2013 04/16/2014 Diabetic ketoacidosis without coma associated w*01/08/2014 02/04/2023 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] 01/08/2014 DVT prophylaxis [[id number]] 02/25/2014 04/16/2014 care and examination [Z39.2] 02/25/2014 [...] suprapubic [R10.2] 02/07/2023 (more content not included)... [facility] 11-14-2023 History of Present illness Narrative DATE OF SERVICE: 11/14/2023 PATIENT NAME: Kathleen Villa : 1995 AGE: 28 y.o. CLINIC NUMBER: [id number] Visit type: Established patient Chief Complaint Patient [...] reapply. Try to limit sun exposure to collar stitcher or late evening hours. Patient advised to perform self-skin checks and call for follow up appointment if any new or concerning lesions detected. Follow up in about 1 year (around 11/13/2024) for Psoriasis f/u. Leesa Huddleston PA-C 11/14/23 5:13 PM REFERRING MD: documented in this encounter [facility] 11-10-2023 Note HNO ID: [id number] Author: KYARA LUIS RN Service: ? Author [...] yet to schedule but plans to call. Rivet Sorter plan for next outreach: Will follow up Priscilla Luis RN November 10, 2023 [facility] 11-10-2023 Note Patient Outreach (MR [facility]) KATHLEEN VILLA ([id number]) 1995 F CHT Date Time Provider Department 11/10/23 KYARA LUIS [facility] During your visit today, we recorded [...] yet to schedule but plans to call. Rivet Sorter plan for next outreach: Will follow up [...] (post-traumatic stress disorder) [F43.10] 12/25/2012 DVT prophylaxis [[id number]] 12/25/2012 09/04/2013 DISPOSITION AND FOLLOW-UP [V999.01] 12/25/2012 09/04/2013 HTN (hypertension) [I10] Hypertension in , antepartum [O16.9] 09/19/2013 01/08/2014 GBS (group B Streptococcus carrier), +RV cultur*11/11/2013 04/16/2014 [Z34.90] 11/22/2013 04/16/2014 Diabetes mellitus in (HCC) [O24.919] 12/25/2013 04/16/2014 Diabetic ketoacidosis without coma associated w*01/08/2014 02/04/2023 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] 01/08/2014 DVT prophylaxis [[id number]] 02/25/2014 04/16/2014 care and examination [Z39.2] 02/25/2014 [...] Encounter Status:Closed by KYARA LUIS on 11/10/23 [facility] 11-10-2023 History of Present illness [...] yet to schedule but plans to call. Rivet Sorter plan for next outreach: Will follow up Signature Kyara Luis RN November 10, 2023 documented in this encounter [facility] 11-03-2023 Note HNO ID: [id number] Author: KYARA LUIS RN Service: ? Author Type: Registered Nurse Type: Progress Notes Filed: 11/03/2023 12:45 Note Text: Summary: TCM follow up TRANSITION CARE MANAGEMENT (TCM) FOLLOW-UP NOTE Provider Action/FYI Patient identified by name and date of : YES Summary: TCM follow up call placed, patient requesting call back at later date, currently resting Rivet Sorter plan for next outreach: Will follow up Priscilla Luis RN November 03, 2023 [facility] 11-03-2023 Note Patient Outreach (MR [facility]) KATHLEEN VILLA ([id number]) 1995 F CHT Date Time Provider Department 11/03/23 KYARA LUIS [facility] During your visit today, we recorded the following information about you: Kyara Luis, RN 11/03/2023 12:45 PM Signed TRANSITION CARE MANAGEMENT (TCM) FOLLOW-UP NOTE Provider Action/FYI Patient identified by name and date of : YES Summary: TCM follow up call placed, patient requesting call back at later date, currently resting Rivet Sorter plan for next outreach: Will follow up [...] (post-traumatic stress disorder) [F43.10] 12/25/2012 DVT prophylaxis [[id number]] 12/25/2012 09/04/2013 DISPOSITION AND FOLLOW-UP [V999.01] 12/25/2012 09/04/2013 HTN (hypertension) [I10] Hypertension in , antepartum [O16.9] 09/19/2013 01/08/2014 GBS (group B Streptococcus carrier), +RV cultur*11/11/2013 04/16/2014 [Z34.90] 11/22/2013 04/16/2014 Diabetes mellitus in (HCC) [O24.919] 12/25/2013 04/16/2014 Diabetic ketoacidosis without coma associated w*01/08/2014 02/04/2023 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] 01/08/2014 DVT prophylaxis [[id number]] 02/25/2014 04/16/2014 care and examination [Z39.2] 02/25/2014 [...] Encounter Status:Closed by KYARA LUIS on 11/03/23 [facility] 11-03-2023 History of Present illness Narrative Summary: TCM follow up TRANSITION CARE MANAGEMENT (TCM) FOLLOW-UP NOTE Provider Action/FYI Patient identified by name and date of : YES Summary: TCM follow up call placed, patient requesting call back at later date, currently resting Rivet Sorter plan for next outreach: Will follow up Signature Kyara Luis RN November 03, 2023 documented in this encounter [facility] 10-27-2023 Note HNO ID: [id number] Author: KYARA LUIS, STIVEN Service: ? Author Type: Registered Nurse Type: Progress Notes Filed: 10/27/2023 14:48 Note Text: Summary: TCM follow up TRANSITION CARE MANAGEMENT (TCM) FOLLOW-UP NOTE Provider Action/FYI Patient identified by name and date of : YES Discharge Network Status: Dsd-xn-Xnattzd (OON) Discharge Summary: TCM follow up call [...] may have to change to PCP in [place], has difficulty obtaining ride to [employer]. Patient asked if name and number of locals physicians can be sent to her, sent via email. States has all medications, taking as directed. Rivet Sorter plan for next outreach: Will follow up Signature Kyara Luis RN October 27, 2023 [facility] 10-27-2023 History of Present illness Narrative Summary: TCM follow up TRANSITION CARE MANAGEMENT (TCM) FOLLOW-UP NOTE Provider Action/FYI Patient identified by name and date of : YES Discharge Network Status: Kbq-jg-Glnjylw (OON) Discharge Summary: TCM follow up call placed to patient, was at ED on 10/25 due to anxiety, started on ativan which is helping. Per patient has thoughts of self harm/cutting, this has subsided, no suicidal ideation. Has been in contact with [place] for intensive outpatient program and has evaluation on 11/05. Has been in contact with her counselor. Has number to crisis and encouraged to return to ED if new/worsening symptoms. Monitoring blood sugars, states have been stable. Per patient may have to change to PCP in [place], has difficulty obtaining ride to [place]. Patient asked if name and number of locals physicians can be sent to her, sent via email. States has all medications, taking as directed. Rivet Sorter plan for next outreach: Will follow up Signature Kyara Luis RN October 27, 2023 documented in this encounter [facility] 10-27-2023 Note Patient Outreach (MR [facility]) KATHLEEN VILLA ([id number]) 1995 F T Date Time Provider Department 10/27/23 KYARA LUIS [facility] During your visit today, we recorded the following information about you: Kyara Luis RN 10/27/2023 2:48 PM Signed TRANSITION CARE MANAGEMENT (TCM) FOLLOW-UP NOTE Provider Action/FYI Patient identified by name and date of : YES Discharge Network Status: Fmx-hn-Whimekw (OON) Discharge Summary: TCM follow up call [...] may have to change to PCP in [place], has difficulty obtaining ride to [place]. Patient asked if name and number of locals physicians can be sent to her, sent via email. States has all medications, taking as directed. Rivet Sorter plan for next outreach: Will follow up [...] (post-traumatic stress disorder) [F43.10] 12/25/2012 DVT prophylaxis [VTH1659] 12/25/2012 09/04/2013 DISPOSITION AND FOLLOW-UP [V999.01] 12/25/2012 09/04/2013 HTN (hypertension) [I10] Hypertension in , antepartum [O16.9] 09/19/2013 01/08/2014 GBS (group B Streptococcus carrier), +RV cultur*11/11/2013 04/16/2014 [Z34.90] 11/22/2013 04/16/2014 Diabetes mellitus in (HCC) [O24.919] 12/25/2013 04/16/2014 Diabetic ketoacidosis without coma associated w*01/08/2014 02/04/2023 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] 01/08/2014 DVT prophylaxis [[id number]] 02/25/2014 04/16/2014 care and examination [Z39.2] 02/25/2014 [...] disease*04/18/2022 Chronic na (more content not included)... [facility] 10-20-2023 Note HNO ID: [id number] Author: KYARA LUIS RN Service: ? Author [...] having a difficult time at a homeless intermediate. Patient does attend weekly counseling at [employer], encouraged her to reach out to her [...] business days post-discharge SUMMARY: -Pt discharged from [facility] on 10/18/23. -Follow up appointment Endo. [...] per patient, her last A1C with her online merchandiser was 6.7. She had however had recurrent [...] to follow up with her PCP and online merchandiser as well as normalizer o/a of gastroparesis. Patient seen and examined prior to discharge. She had no active complaints and had an uneventful night. Review of systems is otherwise negative. Labs and vitals reviewed. Home meds reviewed and reconciled. Kyara Luis RN [facility] 10-20-2023 History of Present illness [...] having a difficult time at a homeless intermediate. Patient does attend weekly counseling at [employer], encouraged her to reach out to her counselor to discuss increased stress/anxiety levels and she plans on calling today. Per patient, no medication changes, blood sugar today is 156, state n/v resolving, Has all medications, taking as directed. . Patient identified by name and .Yes TCM Eligibility Documentation Program: Transitional Care Management Status: Identified Start Date: 10/18/2023 Responsible Staff: Kyara Luis lead informatica developer date: 10/18/2023 (Program start) Date of initial contact: 10/20/2023 Initial contact Target status: Successful; Contact made within 2 business days post-discharge SUMMARY: -Pt discharged from [facility] on 10/18/23. -Follow up appointment Endo. [...] per patient, her last A1C with her online merchandiser was 6.7. She had however had recurrent [...] to follow up with her PCP and online merchandiser as well as normalizer o/a of gastroparesis. Patient seen and examined prior to discharge. She had no active complaints and had an uneventful night. Review of systems is otherwise negative. Labs and vitals reviewed. Home meds reviewed and reconciled. Kyara Luis RN documented in this encounter [facility] 10-20-2023 Note Patient Outreach (MR [facility]) KATHLEEN VILLA ([id number]) 1995 F T Date Time Provider Department 10/20/23 KYARA LUIS [facility] During your visit today, we recorded [...] having a difficult time at a homeless intermediate. Patient does attend weekly counseling at [employer], encouraged her to reach out to her [...] business days post-discharge SUMMARY: -Pt discharged from [facility] on 10/18/23. -Follow up appointment Endo. [...] per patient, her last A1C with her online merchandiser was 6.7. She had however had recurrent [...] to follow up with her PCP and online merchandiser as well as normalizer o/a of gastroparesis. Patient seen and examined [...] of 01/09/2020: All (more content not included)... [facility] 10-19-2023 Note HNO ID: [id number] Author: KYARA LUIS RN Service: ? Author Type: Registered Nurse Type: Progress Notes Filed: 10/19/2023 12:05 Note Text: Summary: TCM call TRANSITION CARE MANAGEMENT (TCM) FOLLOW-UP NOTE Provider Action/FYI Summary: TCM call placed to patient, no answer, message left to return my call at [phone] ext [phone] Rivet Sorter plan for next outreach: Will follow up Signature Kyara Luis RN October 19, 2023 [facility] 10-19-2023 Note Patient Outreach (MR [facility]) KATHLEEN VILLA ([id number]) 1995 F CHT Date Time Provider Department 10/19/23 KYARA LUIS [facility] During your visit today, we recorded the following information about you: Kyara Luis RN 10/19/2023 12:05 PM Signed TRANSITION CARE MANAGEMENT (TCM) FOLLOW-UP NOTE Provider Action/FYI Summary: TCM call placed to patient, no answer, message left to return my call at [phone] ext [phone] Rivet Sorter plan for next outreach: Will follow up [...] (post-traumatic stress disorder) [F43.10] 12/25/2012 DVT prophylaxis [[id number]] 12/25/2012 09/04/2013 DISPOSITION AND FOLLOW-UP [V999.01] 12/25/2012 09/04/2013 HTN (hypertension) [I10] Hypertension in , antepartum [O16.9] 09/19/2013 01/08/2014 GBS (group B Streptococcus carrier), +RV cultur*11/11/2013 04/16/2014 [Z34.90] 11/22/2013 04/16/2014 Diabetes mellitus in (HCC) [O24.919] 12/25/2013 04/16/2014 Diabetic ketoacidosis without coma associated w*01/08/2014 02/04/2023 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] 01/08/2014 DVT prophylaxis [YBF2366] 02/25/2014 04/16/2014 care and examination [Z39.2] 02/25/2014 [...] Encounter Status:Closed by KYARA LUIS on 10/19/23 [facility] 10-19-2023 History of Present illness Narrative Summary: TCM call TRANSITION CARE MANAGEMENT (TCM) FOLLOW-UP NOTE Provider Action/FYI Summary: TCM call placed to patient, no answer, message left to return my call at [phone] ext [phone] Rivet Sorter plan for next outreach: Will follow up Signature Kyara Luis RN October 19, 2023 documented in this encounter [facility] 10-17-2023 History and physi cristina note Note Date/Time October 17, 2023 11:24am [facility] Medical Records Department [address] [place] [address] History & Physical Exam 10/17/23 1120 MR#: [id number] Acct: [id number] Name: KATHLEEN VILLA Rep #:[id number] : [...] DKA and an known type I diabetic. [facility] Medical History Anxiety Borderline personality disorder [...] gauge x 1/2 (Ultra-Thin II Insulin Pen [place]) #100 ea08/10/23 [Rx Last Taken Unknown] prochlorperazine [...] 88.4 H, Lymph % (Auto) 7.8 L, Mclennan % (Auto) 2.4, Eos % (Auto) 0.1, [...] was 6.7. * follows up with an online merchandiser in [facility] in [place]. * last A1C from 08/07/2023 was 7 * #Gastroparesis in the setting of type 1 diabetes mellitus * on compazine. Add on phenergan prn * will benefit from metoclorpromide if nausea persists. * #Hypotension * BP is down in the 90s systolic. * will hydrate with IVF and trend. * DVT prpphylaxis: lovenox. Charges/Coding Visit Charges Inpatient E&M: 36887 Init Hosp L3 10/17/23 1554 <Electronically signed by Vita Jefferson MD> Cosigner Signature (if applicable): CC: Dr. Vita Jefferson MD; FUNMILAYO SMITH~ Signed [facility] Work Phone: 1(395) 567-135302-20-2024 Discharge summary Author Alexandro Garces [facility] October 17, 2023 11:38am Note Date/Time October 17, 2023 11:24am [facility] Medical Records Department [address] [place] [address] Emergency Department Summary 10/17/23 MR#: [id number] Acct: [id number] Name: KATHLEEN VILLA Rep #:[id number] : [...] similar symptoms: Yes Recent Illness/Hospitalization: No PFSH <Jcaqueline Alvarez RN - Last Filed: 10/17/23 11:31> [...] gauge x 1/2 (Ultra-Thin II Insulin Pen [place]) #100 ea08/10/23 [Rx Last Taken Unknown] ibuprofen [...] Alvarez RN - Last Filed: 10/17/23 11:31> [facility] Narrative Medical decision making narrative: Patient placed on corsetier. IV line initiated. Labwork obtained to evaluate [...] 88.4 H Lymph % (Auto) 7.8 L Mclennan % (Auto) 2.4 Eos % (Auto) 0.1 [...] Garces MD - Last Filed: 10/17/23 11:38> [facility] Narrative Medical decision making narrative: Patient placed on corsetier. IV line initiated. Labwork obtained to evaluate [...] 88.4 H Lymph % (Auto) 7.8 L Mclennan % (Auto) 2.4 Eos % (Auto) 0.1 [...] minutes, Including time spent:, Discussing w/Patient &/or Family/Survey Research Professor, Discussing w/Consultants, Arranging Admission or Transfer, Performing Direct Patient Care at Bedside and - (35 minutes) Discharge Plan Dx/Rx/DC Orders Clinical Impression: DKA (diabetic ketoacidosis), Tachycardia, Nausea & vomiting, Acute dehydration Disposition Disposition: Acute Care Hospital [facility] What to do if you have Problems For any increased pain, shortness of breath, bleeding, nausea or vomiting, chest pain, or any unexpected problems, contact your Primary Care Provider. Call [facility] ([phone]) or report to the closest Emergency Room. Call 911 if necessary. 10/17/23 1138 <Electronically signed by Alexandro Garces MD> Cosigner Signature (if applicable): 10/17/23 1131 <Electronically signed by Jacqueline Alvarez RN> CC: FUNMILAYO SMITH ~ Signed [facility] Work Phone: 1(772) 530-826702-15-2024 NoteHNO ID: [id number] Author: KYARA LUIS RN Service: ? Author Type: Registered Nurse Type: Progress Notes Filed: 10/12/2023 14:16 Note Text: Summary: PCC follow up PRIMARY CARE COORDINATION FOLLOW-UP NOTE Provider Action/FYI Patient identified by name and date of . YES Summary: PCC follow up placed to patient, has moved out of intermediate, now sharing and apartment. Per patient is [...] 100 mg/dL or on a high statin Rivet Sorter plan for next outreach: Will follow up Signature Kyara Luis RN October 12, [facility]23[facility] NotePatient Outreach (MRCAC) DAISYKATHLEEN Richter ([id number]) 1995 F CHT Date Time Provider Department 10/12/23 KYARA LUIS [facility] During your visit today, we recorded the following information about you: Kyara Luis RN 10/12/2023 2:16 PM Signed PRIMARY CARE COORDINATION FOLLOW-UP NOTE Provider Action/FYI Patient identified by name and date of . YES Summary: PCC follow up placed to patient, has moved out of intermediate, now sharing and apartment. Per patient is [...] 100 mg/dL or on a high statin Rivet Sorter plan for next outreach: Will follow up [...] LPN - Fully Assessed Reason for Visit: Winch Derrick Operator Chronic Care [2449] Prescriptions as of 10/12/2023 - promethazine (PHENERGAN) [...] (post-traumatic stress disorder) [F43.10] 12/25/2012 DVT prophylaxis [[id number]] 12/25/2012 09/04/2013 DISPOSITION AND FOLLOW-UP [V999.01] 12/25/2012 09/04/2013 HTN (hypertension) [I10] Hypertension in , antepartum [O16.9] 09/19/2013 01/08/2014 GBS (group B Streptococcus carrier), +RV cultur*11/11/2013 04/16/2014 [Z34.90] 11/22/2013 04/16/2014 Diabetes mellitus in (HCC) [O24.919] 12/25/2013 04/16/2014 Diabetic ketoacidosis without coma associated w*01/08/2014 02/04/2023 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] 01/08/2014 DVT prophylaxis [QIL5617] 02/25/2014 04/16/2014 care and examination [Z39.2] 02/25/2014 [...] [K59.04] 11/18/2021 Menstrual i (more content not included)...[facility] History of Present illness Narrative* Kyara Luis RN - 10/12/2023 1:55 PM EST Summary: PCC follow up PRIMARY CARE COORDINATION FOLLOW-UP NOTE Provider Action/FYI Patient identified by name and date of . YES Summary: PCC follow up placed to patient, has moved out of intermediate, now sharing and apartment. Per patient is [...] 100 mg/dL or on a high statin Rivet Sorter plan for next outreach: Will follow up Signature Kyara Luis RN October 12, 2023 [facility] Miscellaneous Notes* Telephone Encounter - Lisa Aguilar LPN - 10/02/2023 10:52 AM EST [employer] forms faxed to office for pump and CGM supplies, [employer] and [employer]. [employer] as back up. Completed forms and JOSE documentation faxed as requested. Lisa Aguilar LPN documented in [facility] NotePatient Outreach (MRCAC) KATHLEEN VILLA ([id number]) 1995 F CHT Date Time Provider Department 09/29/23 KYARA LUIS [facility] During your visit today, we recorded the following information about you: Kyara Luis RN 09/29/2023 11:04 AM Signed PRIMARY CARE COORDINATION FOLLOW-UP NOTE Provider Action/FYI Patient identified by name and date of . YES Summary: Follow up call placed to patient, states continues to have nausea, taking compazine. Per patient has been moved to different intermediate in [place] and will not be moving to [place]. States blood sugars are stable. Using insurance for transportation and will need to call them to update her new address. Has all medications, taking as directed. Rivet Sorter plan for next outreach: Will follow up [...] LPN - Fully Assessed Reason for Visit: Winch Derrick Operator Chronic Care [3612] Prescriptions as of 09/29/2023 [...] [Q87.40] 12/25/2012 DM (diabetes mellitus) ([facility]) [E11.9] 12/25/2012 Gastroparesis due to DM (HCC) [E11.43, K31.84] 12/25/2012 PTSD (post-traumatic stress disorder) [F43.10] 12/25/2012 DVT prophylaxis [[id number]] 12/25/2012 09/04/2013 DISPOSITION AND FOLLOW-UP [V999.01] 12/25/2012 09/04/2013 HTN (hypertension) [I10] Hypertension in , antepartum [O16.9] 09/19/2013 01/08/2014 GBS (group B Streptococcus carrier), +RV cultur*11/11/2013 04/16/2014 [Z34.90] 11/22/2013 04/16/2014 Diabetes mellitus in (HCC) [O24.919] 12/25/2013 04/16/2014 Diabetic ketoacidosis without coma associated w*01/08/2014 02/04/2023 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] 01/08/2014 DVT prophylaxis [[id number]] 02/25/2014 04/16/2014 care and examination [Z39.2] 02/25/2014 [...] 02/07/2023 Encounter Status:Closed by KYARA LUIS on 09/29/23[facility] 09-29-2023 NoteHNO ID: [id number] Author: KYARA LUIS RN Service: ? Author Type: Registered Nurse Type: Progress Notes Filed: 09/29/2023 11:04 Note Text: Summary: PCC follow up PRIMARY CARE COORDINATION FOLLOW-UP NOTE Provider Action/FYI Patient identified by name and date of . YES Summary: Follow up call placed to patient, continues to have nausea, taking compazine. Per patient has been moved to different intermediate in [place] and will not be moving to [place]. States blood sugars are stable. Using insurance for transportation and will need to call them to update her new address. Has all medications, taking as directed. Rivet Sorter plan for next outreach: Will follow up Signature Kyara Luis RN September 29, 2023[facility] History of Present illness Narrative* Kyara Luis RN - 09/29/2023 10:48 AM ESTSummary: PCC follow up PRIMARY CARE COORDINATION FOLLOW-UP NOTE Provider Action/FYI Patient identified by name and date of . YES Summary: Follow up call placed to patient, continues to have nausea, taking compazine. Per patient has been moved to different intermediate in [place] and will not be moving to [place]. States blood sugars are stable. Using insurance for transportation and will need to call them to update her new address. Has all medications, taking as directed. Rivet Sorter plan for next outreach: Will follow up Signature Kyara Luis RN September 29, 2023 documented in this encounterUniversity Hospitals Health System01-25-2024 NoteHNO ID: [id number] Author: KYARA LUIS RN Service: ? Author Type: Registered Nurse Type: Progress Notes Filed: 09/22/2023 10:16 Note Text: Summary: ED follow up [facility] DEPARTMENT FOLLOW UP INITIAL CONTACT Provider Action/FYI: Patient at [place] ED 09/20, Hyperglycemia, nausea/vomiting, was prescribed Reglan- [...] refills. Patient has been living in homeless intermediate in [place] making it difficult to keep appointments, also needing follow up with PCP. plan is to be moving to [place] and will be staying at [facility]. Message to office Spoke with patient aware phenergan filled and PCP scheduled for 10/03/23 Patient identified by name and date : YES SUMMARY: -Patient discharged from [place] ED on 09/20/22. -Follow up appointment on [...] for her nausea and vomiting. Kyara [facility]24 NotePatient Outreach (MRCAC) KATHLEEN VILLA ([id number]) 1995 F T Date Time Provider Department 09/21/23 KYARA LUIS [facility] During your visit today, we recorded the following information about you: Kyara Luis RN 09/22/2023 10:16 AM Addendum [facility] FOLLOW UP INITIAL CONTACT Provider Action/FYI: Patient at [place] ED 09/20, Hyperglycemia, nausea/vomiting, was prescribed Reglan-states [...] refills. Patient has been living in homeless intermediate in [place] making it difficult to keep appointments, also needing follow up with PCP. plan is to be moving to [place] and will be staying at [facility]. Message to office Spoke with patient aware phenergan filled and PCP scheduled for 10/03/23 Patient identified by name and date : YES SUMMARY: -Patient discharged from [place] ED on 09/20/22. -Follow up appointment on [...] LPN - Fully Assessed Reason for Visit: Winch Derrick Operator Ed Follow Up [2200] Order(s):promethazine (PHENERGAN) 25 mg tabletTake 1 tablet [...] K31.84] 12/25/2012 PTSD (post-t (more content not included)...[facility]12-21-2023 Telephone encounter Note* Telephone Encounter - Mary Moreno PharmD - 08/17/2023 12:47 PM EST SUBJECTIVE Kathleen Villa is a 28 year old Female who was referred to [facility] for clinical management services for Skyrizi 150 MG/ML. Diagnosis Psoriasis vulgaris L40.0 OBJECTIVE Medications: Betamethasone Valerate 0.1 % CREA EX Clobetasol Propionate 0.05 % SOLN EX [place]/FS Body 0.01 % OIL EX Levothyroxine Sodium [...] Patient knows we are available -04-01 at [phone]. Mary Moreno Clinical Pharmacist [facility] [id number] Miscellaneous Notes* Telephone Encounter - Mary Moreno PharmD - 08/17/2023 12:47 PM EST SUBJECTIVE Kathleen Villa is a 28 year old Female who was referred to [facility] for clinical management services for Skyrizi 150 MG/ML. Diagnosis Psoriasis vulgaris L40.0 OBJECTIVE Medications: Betamethasone Valerate 0.1 % CREA EX Clobetasol Propionate 0.05 % SOLN EX [place]/FS Body 0.01 % OIL EX Levothyroxine Sodium [...] knows we are available M- 8 at [phone]. Mary Moreno Clinical Pharmacist [facility] documented in this [facility]12-19-2023 NotePatient Outreach (MRCAC) KATHLEEN VILLA ([id number]) 1995 F T Date Time Provider Department [...] malfunctioning and has received new supplies from [employer]. Has reached out to endocrinology and will keep scheduled appointment in August. Has picked up new medications, taking as directed, no further abdominal pain and blood sugar this am 153.amisha Sweet is currently staying in intermediate and working with staff to secure housing. [...] SUMMARY: -Admitted for: DKA -Pt discharged from [place] on 08/10/23. -Follow up appointment on Declines [...] on admission. Placed in ICU on admission. computer training specialist evaluated on 08/07, patient reported no needs at this time. Patient transitioned off insulin drip on evening of 08/07, unfortunately had increased blood sugars with reopening of gap that evening, required insulin drip again in collar stitcher of 08/08. Gap closed on morning of [...] home. Recommended close outpatient follow-up with her online merchandiser. Enterocolitis, improving CT abdomen pelvis on admit [...] INSULIN) 100 unit/mL i (more content not included)...[facility]12-19-2023 NoteHNO ID: [id number] Author: Kyara Luis RN Service: ? Author [...] am 153.amisha Sweet is currently staying in intermediate and working with staff to secure housing. [...] SUMMARY: -Admitted for: DKA -Pt discharged from [place] on 08/10/23. -Follow up appointment on Declines [...] on admission. Placed in ICU on admission. computer training specialist evaluated on 08/07, patient reported no needs at this time. Patient transitioned off insulin drip on evening of 08/07, unfortunately had increased blood sugars with reopening of gap that evening, required insulin drip again in collar stitcher of 08/08. Gap closed on morning of [...] home. Recommended close outpatient follow-up with her online merchandiser. Enterocolitis, improving CT abdomen pelvis on admit [...] Kyara Luis RN August 15, 2023 11:46 [facility]12-19-2023 NoteHNO ID: [id number] Author: Kyara Luis RN Service: ? Author Type: Registered Nurse Type: Progress Notes Filed: 08/15/2023 11:57 AM Note Text: [facility]12-19-2023 History of Present illness Narrative* [...] am 153.v States is currently staying in intermediate and working with staff to secure housing. [...] SUMMARY: -Admitted for: DKA -Pt discharged from [place] on 08/10/23. -Follow up appointment on Declines [...] on admission. Placed in ICU on admission. computer training specialist evaluated on 08/07, patient reported no needs at this time. Patient transitioned off insulin drip on evening of 08/07, unfortunately had increased blood sugars with reopening of gap that evening, required insulin drip again in collar stitcher of 08/08. Gap closed on morning of [...] at home. Recommended close outpatient follow-up withher online merchandiser. Enterocolitis, improving CT abdomen pelvis on admit [...] 11:45 AM EST Error documented in this encounterUniversity Hospitals Health System12-14-2023 Discharge summary Author Dangelo Encarnacion [facility] August 10, 2023 12:06pm Note Date/Time August 10, 2023 12:04pm [facility] Medical Records Department [address] [place] [address] Instructions for Home/Discharge Instructions 08/10/23 1204 MR#: [id number] Acct: [id number] Name: KATHLEEN VILLA Rep #:[id number] : [...] course as noted below. Follow-up with your online merchandiser when able. Follow-up with your outpatient primary [...] Physician ~ Signed [facility] Work Phone: 1(772) 638-121012-13-2023 Progress note Author Dangelo Encranacion [facility] August 09, 2023 5:28pm Note Date/Time August 09, 2023 5:28pm [facility] Medical Records Department [address] [place] [address] Progress Note - Hospitalist 08/09/23 1724 MR#: [id number] Acct: [id number] Name: KATHLEEN VILLA Rep #:[id number] : 1995 28 From: Dangelo beth DO PCP: Care Physician,No Primary Status :ADM IN Location: [place] [address] Reason for Visit Reason for Visit: Diagnoses [...] GFR (MDRD) Non-Af 91, BUN/Creatinine Ratio 12.6, Phkufnz150 H, Calcium 8.0 L 08/08/23 23:58: POC [...] that evening, required insulin drip again in collar stitcher of 08/08. Gap closed on morning of [...] 35 minutes. Charges/Coding Visit Charges Inpatient E&M: 63926 Subs Hosp L2 08/09/23 1728 <Electronically signed by Dangelo Encarnacion DO> Cosigner Signature (if applicable): CC: ~ Signed [facility] Work Phone: 1(557) 234-908112-13-2023 Progress note Author Ramya Lombardo [facility] August 08, 2023 10:31pm Note Date/Time August 08, 2023 9:19pm [facility] Medical Records Department [address] [place] [address] Progress Note - Hospitalist 08/08/232117 MR#: [id number] Acct: [id number] Name: KATHLEEN VILLA Rep #:[id number] : [...] cc: ~* Signed [facility] Work Phone: 1(542) 686-985112-12-2023 Progress note Author Dangelo [facility] August 08, 2023 3:36pm Note Date/Time August 08, 2023 3:36pm [facility] Medical Records Department [address] [place] [address] Progress Note - Hospitalist 08/08/23 1530 MR#: [id number] Acct: [id number] Name: KATHLEEN VILLA Rep #:[id number] : [...] GFR (MDRD) Non-Af 96, BUN/Creatinine Ratio 17.2, Nthtvni121 H, Calcium 7.4 L 08/08/23 05:04: POC [...] that evening, required insulin drip again in collar stitcher of 08/08. Gap closed on morning of 08/08. ? Discussed with patient, will allow patient to start her insulin pump today andmonitor her blood sugars closely. If sugars remain stable through tomorrow, will likely be okay for discharge home tomorrow. Patient follows with an outside online merchandiser, recommended close follow-up appointment with her online merchandiser on discharge. Monitor BMP tomorrow morning. 2. [...] 35 minutes. Charges/Coding Visit Charges Inpatient E&M: 34116 Subs Hosp L2 08/08/23 1536 <Electronically signed by Dangelo Encarnacion DO> Cosigner Signature (if applicable): CC: ~ Signed [facility] Work Phone: 1(444) 868-326112-11-2023 Progress note Author Dangelo [facility] August 07, 2023 5:01pm Note Date/Time August 07, 2023 3:12pm [facility] Medical Records Department [address] [place] [address] Progress Note - Hospitalist 08/07/23 1512 MR#: [id number] Acct: [id number] Name: KATHLEEN VILLA Rep #:[id number] : [...] Clarity Clear, Urine pH 5.0, Ur Specific [place] 1.015, Urine Protein Negative, Urine Glucose (UA) [...] (Auto) 92.7 H, Lymph % (Auto)2.1 L, Mclennan % (Auto) 2.0, Eos % (Auto) 0.0, [...] 35 minutes. Charges/Coding Visit Charges Inpatient E&M: 54172 Subs Hosp L2 08/07/23 1701 <Electronically signed by Dangelo Encarnacion DO> Cosigner Signature (if applicable): CC: ~ Signed [facility] Work Phone: 1(136) 277-273912-11-2023 History and physical note Author Vamsi Lewis [facility] August 07, 2023 5:40am Note Date/Time August 07, 2023 12:08am [facility] Medical Records Department [address] [place] [address] H&P Exam - Hospitalist 08/07/23 0006 MR#: [id number] Acct: [id number] Name: KATHLEEN VILLA Rep #:[id number] : [...] expected to be greater than 48 hours. [facility] Medical History Anxiety Borderline personality disorder [...] (Auto) 92.7 H, Lymph % (Auto)2.1 L, Mclennan % (Auto) 2.0, Eos % (Auto) 0.0, [...] response to therapy. Finally, we will consult account planner to see this patient in the a.m. [...] 75 minutes. Charges/Coding Visit Charges Inpatient E&M: 40136 Init Hosp L3 08/07/23 0540 <Electronically signed by Vamsi Duvall DO> Cosigner Signature (if applicable): CC: Dr. Vamsi Duvall DO; No Primary Care Physician~ Signed [facility] Work Phone: 1(395) 108-142512-11-2023 Discharge summary Author Lul Singh [facility] August 07, 2023 12:37am Note Date/Time August 06, 2023 10:54pm [facility] Medical Records Department [address] [place] [address] Emergency Department Summary 08/06/23 MR#: [id number] Acct: [id number] Name: KATHLEEN VILLA Rep #:[id number] : [...] past and therefore comes in for evaluation [facility] Medical History Anxiety Borderline personality disorder [...] 92.7 H Lymph % (Auto) 2.1 L Mclennan % (Auto) 2.0 Eos % (Auto) 0.0 [...] Physician,No Primary Disposition Disposition: Acute Care Hospital [facility] What to do if you have Problems For any increased pain, shortness of breath, bleeding, nausea or vomiting, chestpain, or any unexpected problems, contact your Primary Care Provider. Call [facility] ([phone]) or report to the closest Emergency Room. Call 911 if necessary. 08/07/23 0037 <Electronically signed by Lul Singh DO> Cosigner Signature (if applicable): CC: No Primary Care Physician ~ Signed [facility] Work Phone: 1(150) 894-879712-11-2023 Discharge summary Author Lul Singh [facility] August 07, 2023 12:37am Note Date/Time August 06, 2023 10:54pm [facility] Medical Records Department [address] [place] [address] Emergency Department Summary 08/06/23 MR#: [id number] Acct: [id number] Name: KATHLEEN VILLA Rep #:[id number] : [...] past and therefore comes in for evaluation [facility] Medical History Anxiety Borderline personality disorder [...] 92.7 H Lymph % (Auto) 2.1 L Mclennan % (Auto) 2.0 Eos % (Auto) 0.0 [...] ABG results: ABG 08/06/23 23:04 Specimen Type ISABLELE Sample Site Not entered VBG pH 7.34 [...] Physician,No Primary Disposition Disposition: Acute Care Hospital [facility] What to do if you have Problems For any increased pain, shortness of breath, bleeding, nausea or vomiting, chestpain, or any unexpected problems, contact your Primary Care Provider. Call [facility] ([phone]) or report to the closest Emergency Room. Call 911 if necessary. 08/07/23 0037 <Electronically signed by Lul Singh DO> Cosigner Signature (if applicable): CC: No Primary Care Physician ~ Signed [facility] Work Phone: 1(111) 213-106510-30-2023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 Signature Kyara Luis RN February 06, 2023[facility]06-09-2023 NoteHNO ID: [id number] Author: Clemencia Rivera RN Service: PICC Team Author Type: Registered Nurse Type: Procedures Filed: 02/03/2023 2:30 PM Note Text: MIDLINE INSERTION PROCEDURE NOTE - PICC TEAM NURSES DATE OF PROCEDURE: 02/03/2023 TIME OF PROCEDURE: 1420 ORDERING PHYSICIAN: Juan Carlos Leroy CNP Indications for line placement: Intravenous access Condition of line placement: Sterile Primary Proceduralist: Lewis Fuentes RN Wastewater Analyst: Clemencia Rivera RN Pre-procedure Review: ALLERGIES Allergen [...] RN Midline Catheter Placement: Brand: BARD Lot: [id number] Number of lumens: 1 Type of Midline: Power Injectable Midline Lumen size: 3 Maltese Placement Technique: Lidocaine: Yes, Lidocaine 1% Volume [...] or problems: Call Vascular Access Nurse on [facility] SIGNATURE: Clemencia Rivera RN PATIENT NAME: Kathleen Villa DATE: February 03, 2023 TIME: 2:24 PM PAGER: Call Vascular Access Nurse on [facility] 02-03-2023 NoteHNO ID: [id number] Author: Mary Ordoñez RN Service: Nursing Author Type: Registered Nurse Type: Nursing Progress Note Filed: 02/03/2023 1:55 PM Note Text: Vascular access team at bedside setting up for ordered midline IV placement at this time.[facility]06-09-2023 NoteHNO ID: [id number] Author: Rubio Diana MD Service: Critical Care Author Type: Physician Type: Progress Notes Filed: 02/03/2023 11:39 AM Note Text: [facility] STAFF PHYSICIAN NOTE OF PERSONAL INVOLVEMENT [...] of care, medical plan for the day, banking consultant recommendations, medical disposition and current medical [...] Diana MD [facility] DATE of SERVICE: 02/03/2023[facility]06-09-2023 NoteHNO ID: [id number] Author: Yimi Leroy APRN.CNP Service: Critical Care [...] 21 URINALYSIS: Recent Lab (more content not included)...[facility]06-08-2023 NoteHNO ID: [id number] Author: Rubio Diana MD Service: Critical Care Author Type: Physician Type: Progress Notes Filed: 02/02/2023 2:32 PM Note Text: [facility] STAFF PHYSICIAN NOTE OF PERSONAL INVOLVEMENT [...] of care, medical plan for the day, banking consultant recommendations, medical disposition and current medical [...] Diana MD [facility] DATE of SERVICE: 02/02/2023[facility]06-08-2023 NoteHNO ID: [id number] Author: Alex Mccray MD Service: Hospital Medicine Author Type: Physician Type: Progress Notes Filed: 02/02/2023 9:37 AM Note Text: INPATIENT PROGRESS NOTE SERVICE DATE: 02/02/2023 SERVICE TIME: 9:03 AM SUBJECTIVE: CHIEF COMPLAINT: Nausea, vomiting, abdominal pain INTERVAL HPI: Patient seen and examined. Patient is 27-year-old female with history of diabetes, gastroparesis, follows with normalizer at [facility] who presented for abdominal pain, nausea, vomiting [...] bilaterally.] SKIN: [Clear, no evidence of bleeding.] JOB PLACEMENT OFFICER: [Patient awake, alert, oriented ?3. No focal [...] with history of diabetes, gastroparesis, follows with normalizer at [facility] who presented for abdominal pain, nausea, vomiting for 1 day and on evaluation she was thought to have gastroparesis episode for which s (more content not included)...[facility]06-07-2023 NoteHNO ID: [id number] Author: Alex Mccray MD Service: Hospital Medicine Author Type: Physician Type: Progress Notes Filed: 02/02/2023 8:24 AM Note Text: INPATIENT PROGRESS NOTE SERVICE DATE: 02/01/2023 SERVICE TIME: 11:38 AM SUBJECTIVE: CHIEF COMPLAINT: Nausea, vomiting, abdominal pain INTERVAL HPI: Patient seen and examined. Patient is 27-year-old female with history of diabetes, gastroparesis, follows with normalizer at [facility] who presented for abdominal pain, nausea, vomiting [...] bilaterally.] SKIN: [Clear, no evidence of bleeding.] JOB PLACEMENT OFFICER: [Patient awake, alert, oriented ?3. No focal [...] bowel. Consider CT if concern remains high. Steward/Stewardess Economy Class: PSCB Transcribe Date/Time: Jan 31 2023 7:56P [...] QTC Calculation (Bazett) 463 ms Calculated P [place] 26 degrees Calculated R [place] 78 degrees Calculated T [place] 72 degrees Narrative NAME : KATHLEEN VILLA PID : [id number] : 1995 Gender : Female Race : ORD : [id number] Procedure Date : Jan 31 2023 19:42:30 Edit Date : Jan 31 2023 23:03:15 Diagnosis: Normal sinus rhythm Nonspecific T wave abnormality Abnormal ECG When compared with ECG of 23-NOV-2022 18:14, Nonspecific T wave abnormality now evident in Lateral leads QT has lengthened Confirmed by ANASTASIA CHENG MD ([id number]) on 01/31/2023 11:03:12 PM Test Reason : [...] has lengthened Confirmed by ANASTASIA CHENG MD ([id number]) on 01/31/2023 11:03:12 PM CBC + DIFF [...] 4.00 k/uL Monocytes % 4.7 % Abs Mclennan 0.73 <0.87 k/uL Eosinophils % 0.1 % Abs Eosin <0.03 <0.46 k/uL Basophils % 0.5 % Abs Baso 0.07 <0.11 k/uL (more content not included)...[facility]06-07-2023 Miscellaneous Notes * Telephone Encounter - Radha Mandel MA - 02/01/2023 10:36 AM EDT Spoke with patient and she voiced understanding. * Telephone Encounter - Radha Mandel MA - 02/01/2023 10:35 AM EDT ----- Message from Vivi Smith MD sent at 01/27/2023 8:53 AM EDT ----- Please call and notify patient no signs of UTI on urine culture documented in this encounterUniversity Hospitals Health System05-31-2023 NoteHNO ID: [id number] Author: Radha Mandel MA Service: ? Author Type: Psychiatric Aides Teacher Type: Progress Notes Filed: 01/25/2023 1:01 PM Note Text: Patient here today to recollect urine as previous urine culture was contaminated. Patient concerned as that was her second collection with multiple bacteria. Urine collected, dipped, and sent out for culture.[facility]05-31-2023 History of Present illness Narrative* [...] (BAQSIMI) 3 mg/actuation nasal spray Use 1 [place] in the nose as needed for low [...] Other maternal great grandma I reviewed the Psychiatric Aides Teacher's notes with this visit for vital signs, [...] office visit notes from today faxed to [facility] in order to receive her [...] long-term current use of insulin ([facility]) (primary encounter diagnosis) (Z96.41) Insulin pump status [...] visit in 3 months with FRIEDA Urena APRN.GRAIN INSPECTOR Endocrinology & Metabolism [place] Some elements in this note were copied from my last note and have been updated as appropriate and reflect medical decision making today. documented in this encounterUniversity Hospitals Health System05-31-2023 History of Present illness Narrative* Radha Mandel MA - 01/25/2023 12:59 PM EDT Patient here today to recollect urine as previous urine culture was contaminated. Patient concernedas that was her second collection with multiple bacteria. Urine collected, dipped, and sent out forculture. documented in this encounterUniversity Hospitals Health System05-31-2023 Miscellaneous Notes* Telephone Encounter - Radha Mandel MA - 01/25/2023 11:04 AM EDT Spoke with patient and she is concerned as she knows how to do a clean catch to collect a urine andit is showing multiple bacteria. Patient scheduled for [place] to collect another urine. Please sign orders. [...] based on this specimen documented in this encounterUniversity Hospitals Health System05-30-2023 Miscellaneous Notes* Telephone Encounter - Vivi Smith MD - 01/24/2023 11:58 AM EDT [place] order in Outbox on RX paper as unable to write order in Epic * Telephone Encounter - Radha Mandel MA - 01/24/2023 11:37 AM EDT Yaima from [facility] called and they need an order for a port flush. Pleaseplace order and I will fax. documented in this encounterUniversity Hospitals Health System05-26-2023 NoteHNO ID: [id number] Author: Nicolette Cox LPN Service: ? Author Type: LICENSED NURSE Type: Progress Notes Filed: 01/20/2023 3:16 PM Note Text: Gilda presents today for a 1 month follow up visit.Gilda continues to c/o abdominal pain that radiates to her back. She states she did not follow up with pain management.[facility]05-26-2023 NoteHNO ID: [id number] Author: Vivi Smith MD Service: ? Author [...] 200s/. She sees Endo next week. Seeing [facility] PORTABLE MACHINE and had recent negative pap smear and [...] (BAQSIMI) 3 mg/actuation nasal spray Use 1 Lafitte in the nose as needed for low [...] movements intact. Conjunctiva/sclera: Conjunc (more content not included)...[facility] 01-12-2023 NoteHNO ID: [id number] Author: Madonna Troo, DO Service: ? Author Type: Physician Type: [...] fevers GI: No nausea, vomiting, or diarrhea DERRICK WORKER: Negative for abnormal vaginal bleeding, abnormal vaginal [...] 2 IG Call with results. Madonna Toro, [facility]05-18-2023 NoteHNO ID: [id number] Author: Faviola Engle MA Service: ? Author Type: Psychiatric Aides Teacher Type: Progress Notes Filed: 01/12/2023 1:32 PM Note Text: Pt was exposed to a std.[facility]05-16-2023 Miscellaneous Notes* Telephone Encounter - Dori Chapman RN - 01/10/2023 8:58 AM EDT I called pt - pt confirmed 1:00p on Thursday documented in this encounterUniversity Hospitals Health System05-09-2023 Miscellaneous Notes* Telephone Encounter - Lucius Santillan [...] forwarded to: SILVINO Trujillo documented in this encounterUniversity Hospitals Health System04-14-2023 Miscellaneous Notes* Telephone Encounter - Nicolette Cox [...] message for Dr. Johansen who is [facility] doctor she previously seen. She states she was sent home with a prescription for hydrocodone #12 tablets. She is asking if you can continue to prescribe pain medication until she gets in with GI doctor. Please advise. She states she scheduled a follow up appt with you on 01/20/23 but wants to know if you want to seeher sooner. documented in this encounterUniversity Hospitals Health System04-13-2023 History of Present illness Narrative* Nicolette Cox [...] admissions. Discharge Summary Fide Pitts MD (Physician) [facility] Medicine Expand All Collapse All DISCHARGE [...] long-term current use of insulin ([facility]); Insulin pump status LINZESS 72 mcg Take [...] long-term current use of insulin ([facility]); Insulin pump status blood sugar diagnostic (CONTOUR NEXT TEST STRIPS) test strip Use as instructed to check blood glucose 5 times daily. E10.65 Qty: 500 Strip Refills: 3 Associated Diagnoses:Type 1 diabetes mellitus with hyperglycemia, with long-term current use of insulin ([facility]); Insulin pump status BAQSIMI 3 mg Use 3 mg in the nose as needed for low blood sugar. <span hidden class=[email or web address]></span>May repeat after 15 minutes using a new device if there is no response. Qty: 2 Each Refills: 2 Associated Diagnoses:Type 1 diabetes mellitus with hyperglycemia, with long-term current use of insulin ([facility]); Insulin pump status glucose 16 g Take 16 g by mouth as needed. Qty: 100 tablet Refills: 11 Associated Diagnoses:Type 1 diabetes mellitus with hyperglycemia, with long-term current use of insulin ([facility]); Insulin pump status insulin glargine (LANTUS SOLOSTAR, BASAGLAR KWIKPEN) 100 unit/mL (3 mL) Inject 43 Units subcutaneously as directed in the event of Insulin pump failure. Qty: 15 mL Refills: 1 Comments: Generic or brand: dispense product preferred by patient/insurance unless BRET flag is selected. Associated Diagnoses:Type 1 diabetes mellitus with hyperglycemia, with long-term current use of insulin ([facility]); Insulin pump status Acetone, Urine, Test (KETONE [...] Care Provider Provider Name Dr. Smith Address [address] [place] [address], [place] [address] Appointment Date 12/08/22 Appointment Time 1:45pm The [...] type 1 with gastroparesis: Patient follows with normalizer Dr. Leticia Hylton with several smart pill [...] tree and pancreatic region SIGNATURE: Kathleen Hicks, OPERATIONS REPRESENTATIVE.GRAIN INSPECTOR PAST MEDICAL HISTORY Diagnosis Date Anxiety disorder [...] (BAQSIMI) 3 mg/actuation nasal spray Use 1 Lafitte in the nose as needed for low [...] 1. Gastroparesis due to DM ([facility]) E11.43 K31.84 2. Aortic root aneurysm ([facility]) I71.21 3. Primary hypertension I10 4. Chronic nausea R11.0 5. 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 ([facility]) E10.3553 6. Marfan syndrome Q87.40 7. PTSD (post-traumatic stress disorder) F43.10 8. Generalized abdominal pain R10.84 Per Hospital note reviewed but patient states her pain is different Will refer down to [facility] ED for further evaulation Stable at the moment Unclear etiology On Insulin Pump. HBA1c 3 months ago was 7 Noted Stable Pain out of portion. Sent by private vehicle to rule out blood clot/mesenteric ischemia and furtheretiologies. Vivi Smith MD documented in this encounterUniversity Hospitals Health System04-10-2023 Miscellaneous Notes* Telephone Encounter - Lisa Aguilar LPN - 12/05/2022 3:09 PM EDT Form faxed to [facility]. Lisa Aguilar LPN * Telephone Encounter - Autumn Valadez APRN.FRIEDA - 12/05/2022 12:32 PM EDT Signed Autumn Valadez APRN.FRIEDA * Telephone Encounter - Lisa Aguilar LPN - 12/05/2022 10:04 AM EDT JOSE:08/16/2022 NOV: 12/07/2022 Called patient Verified she has new pump medtronic 770G and will be meeting with [facility] for education on newpump. Patient currently [...] 11/07/2022 3:19 PM EDT Received form from [facility] Medical Form, 6 months of OV notes and CGM download on desk, please sign * Telephone Encounter - Lisa Aguilar LPN - 11/04/2022 11:15 AM EST Completed form faxed to [facility]. Lisa Aguilar LPN * Telephone [...] date of : Yes Type of form: [facility] MEDICAL / CGM Form received via: Fax When form is completed, fax form to fax number provided.[phone] Form has been forwarded to: SILVINO Hayes Pss documented in this encounterUniversity Hospitals Health System03-29-2023 History of Past illness Narrative* Problem Noted [...] 02/25/2014 morning - On fentanyl gtt per DIGITAL EXPERIENCE MANAGER Plan: - DIGITAL EXPERIENCE MANAGER team to round on patient and manage [...] arise --- Follows with Dr. Garcia at [facility] Plan: - Continuous monitoring - F/u DIGITAL EXPERIENCE MANAGER recs GBS (group B Streptococcus carrier), +RV culture @ 22 wks 11/11/2013 04/16/2014 Hypertension in , antepartum 09/19/2013 01/08/2014 DVT prophylaxis 12/25/2012 09/04/2013 Overview: IPCs DISPOSITION AND FOLLOW-UP 12/25/20122013 Overview: Full code Retinal detachment 10/26/2012 12/25/2012 documented as of this encounter (statuses as of 12/09/2022) [facility]03-29-2023 History of Past illness Narrative* Problem Noted [...] 02/25/2014 morning - On fentanyl gtt per DIGITAL EXPERIENCE MANAGER Plan: - DIGITAL EXPERIENCE MANAGER team to round on patient and manage [...] arise --- Follows with Dr. Garcia at [facility] Plan: - Continuous monitoring - F/u DIGITAL EXPERIENCE MANAGER recs GBS (group B Streptococcus carrier), +RV culture @ 22 wks 11/11/2013 04/16/2014 Hypertension in , antepartum 09/19/2013 01/08/2014 DVT prophylaxis 12/25/2012 09/04/2013 Overview: IPCs DISPOSITION AND FOLLOW-UP 12/25/20122013 Overview: Full code Retinal detachment 10/26/2012 12/25/2012 documented as of this encounter (statuses as of 12/09/2022) [facility] History of Past illness Narrative* Problem Noted [...] 02/25/2014 morning - On fentanyl gtt per DIGITAL EXPERIENCE MANAGER Plan: - DIGITAL EXPERIENCE MANAGER team to round on patient and manage [...] arise --- Follows with Dr. Garcia at [facility] Plan: - Continuous monitoring - F/u DIGITAL EXPERIENCE MANAGER recs GBS (group B Streptococcus carrier), +RV culture @ 22 wks 11/11/2013 04/16/2014 Hypertension in , antepartum 09/19/2013 01/08/2014 DVT prophylaxis 12/25/2012 09/04/2013 Overview: IPCs DISPOSITION AND FOLLOW-UP 12/25/20122013 Overview: Full code Retinal detachment 10/26/2012 12/25/2012 documented as of this encounter (statuses as of 01/03/2023) [facility] History of Past illness Narrative* Problem Noted [...] 02/25/2014 morning - On fentanyl gtt per DIGITAL EXPERIENCE MANAGER Plan: - DIGITAL EXPERIENCE MANAGER team to round on patient and manage [...] arise --- Follows with Dr. Garcia at [facility] Plan: - Continuous monitoring - F/u DIGITAL EXPERIENCE MANAGER recs GBS (group B Streptococcus carrier), +RV culture @ 22 wks 11/11/2013 04/16/2014 Hypertension in , antepartum 09/19/2013 01/08/2014 DVT prophylaxis 12/25/2012 09/04/2013 Overview: IPCs DISPOSITION AND FOLLOW-UP 12/25/20122013 Overview: Full code Retinal detachment 10/26/2012 12/25/2012 documented as of this encounter (statuses as of 01/10/2023) [facility] History of Past illness Narrative* Problem Noted [...] 02/25/2014 morning - On fentanyl gtt per DIGITAL EXPERIENCE MANAGER Plan: - DIGITAL EXPERIENCE MANAGER team to round on patient and manage [...] arise --- Follows with Dr. Garcia at [facility] Plan: - Continuous monitoring - F/u DIGITAL EXPERIENCE MANAGER recs GBS (group B Streptococcus carrier), +RV culture @ 22 wks 11/11/2013 04/16/2014 Hypertension in , antepartum 09/19/2013 01/08/2014 DVT prophylaxis 12/25/2012 09/04/2013 Overview: IPCs DISPOSITION AND FOLLOW-UP 12/25/20122013 Overview: Full code Retinal detachment 10/26/2012 12/25/2012 documented as of this encounter (statuses as of 01/24/2023) [facility] History of Past illness Narrative* Problem Noted [...] 02/25/2014 morning - On fentanyl gtt per DIGITAL EXPERIENCE MANAGER Plan: - DIGITAL EXPERIENCE MANAGER team to round on patient and manage [...] arise --- Follows with Dr. Garcia at [facility] Plan: - Continuous monitoring - F/u DIGITAL EXPERIENCE MANAGER recs GBS (group B Streptococcus carrier), +RV culture @ 22 wks 11/11/2013 04/16/2014 Hypertension in , antepartum 09/19/2013 01/08/2014 DVT prophylaxis 12/25/2012 09/04/2013 Overview: IPCs DISPOSITION AND FOLLOW-UP 12/25/20122013 Overview: Full code Retinal detachment 10/26/2012 12/25/2012 documented as of this encounter (statuses as of 01/25/2023) [facility] of Past illness Narrative* Problem Noted [...] 02/25/2014 morning - On fentanyl gtt per DIGITAL EXPERIENCE MANAGER Plan: - DIGITAL EXPERIENCE MANAGER team to round on patient and manage [...] arise --- Follows with Dr. Garcia at [facility] Plan: - Continuous monitoring - F/u DIGITAL EXPERIENCE MANAGER recs GBS (group B Streptococcus carrier), +RV culture @ 22 wks 11/11/2013 04/16/2014 Hypertension in , antepartum 09/19/2013 01/08/2014 DVT prophylaxis 12/25/2012 09/04/2013 Overview: IPCs DISPOSITION AND FOLLOW-UP 12/25/20122013 Overview: Full code Retinal detachment 10/26/2012 12/25/2012 documented as of this encounter (statuses as of 01/25/2023) [facility] of Past illness Narrative* Problem Noted [...] 02/25/2014 morning - On fentanyl gtt per DIGITAL EXPERIENCE MANAGER Plan: - DIGITAL EXPERIENCE MANAGER team to round on patient and manage [...] arise --- Follows with Dr. Garcia at [facility] Plan: - Continuous monitoring - F/u DIGITAL EXPERIENCE MANAGER recs GBS (group B Streptococcus carrier), +RV culture @ 22 wks 11/11/2013 04/16/2014 Hypertension in , antepartum 09/19/2013 01/08/2014 DVT prophylaxis 12/25/2012 09/04/2013 Overview: IPCs DISPOSITION AND FOLLOW-UP 12/25/20122013 Overview: Full code Retinal detachment 10/26/2012 12/25/2012 documented as of this encounter (statuses as of 01/25/2023) [facility] History of Past illness Narrative* Problem Noted [...] 02/25/2014 morning - On fentanyl gtt per DIGITAL EXPERIENCE MANAGER Plan: - DIGITAL EXPERIENCE MANAGER team to round on patient and manage [...] arise --- Follows with Dr. Garcia at [facility] Plan: - Continuous monitoring - F/u DIGITAL EXPERIENCE MANAGER recs GBS (group B Streptococcus carrier), +RV culture @ 22 wks 11/11/2013 04/16/2014 Hypertension in , antepartum 09/19/2013 01/08/2014 DVT prophylaxis 12/25/2012 09/04/2013 Overview: IPCs DISPOSITION AND FOLLOW-UP 12/25/20122013 Overview: Full code Retinal detachment 10/26/2012 12/25/2012 documented as of this encounter (statuses as of 01/26/2023) [facility] of Past illness Narrative* Problem Noted [...] 02/25/2014 morning - On fentanyl gtt per DIGITAL EXPERIENCE MANAGER Plan: - DIGITAL EXPERIENCE MANAGER team to round on patient and manage [...] arise --- Follows with Dr. Garcia at [facility] Plan: - Continuous monitoring - F/u DIGITAL EXPERIENCE MANAGER recs GBS (group B Streptococcus carrier), +RV culture @ 22 wks 11/11/2013 04/16/2014 Hypertension in , antepartum 09/19/2013 01/08/2014 DVT prophylaxis 12/25/2012 09/04/2013 Overview: IPCs DISPOSITION AND FOLLOW-UP 12/25/20122013 Overview: Full code Retinal detachment 10/26/2012 12/25/2012 documented as of this encounter (statuses as of 01/26/2023) [facility] of Past illness Narrative* Problem Noted [...] 02/25/2014 morning - On fentanyl gtt per DIGITAL EXPERIENCE MANAGER Plan: - DIGITAL EXPERIENCE MANAGER team to round on patient and manage [...] arise --- Follows with Dr. Garcia at [facility] Plan: - Continuous monitoring - F/u DIGITAL EXPERIENCE MANAGER recs GBS (group B Streptococcus carrier), +RV culture @ 22 wks 11/11/2013 04/16/2014 Hypertension in , antepartum 09/19/2013 01/08/2014 DVT prophylaxis 12/25/2012 09/04/2013 Overview: IPCs DISPOSITION AND FOLLOW-UP 12/25/20122013 Overview: Full code Retinal detachment 10/26/2012 12/25/2012 documented as of this encounter (statuses as of 02/01/2023) [facility] History of Present illness Narrative* Abelardo La [...] (BAQSIMI) 3 mg/actuation nasal spray Use 1 Lafitte in the nose as needed for low [...] as needed Abelardo La documented in this encounterUniversity Hospitals Health System03-09-2023 Miscellaneous Notes* Telephone Encounter - Florence Murillo RN - 11/03/2022 3:24 PM EST Situation handled in different encounter * Telephone Encounter - Jackeline Estrada [facility] - 11/02/2022 4:28 PM EST Patient has been identified by name and date of : Yes Type of form: Pump and CGM Physician's order/record request/demo sheet/insurance Form received via: Fax When form is completed, fax form to fax number provided. Form has been forwarded to: Provider's mailbox. Provider name: Dr Joshua Esrtada Pss documented in this encounterUniversity Hospitals Health System02-25-2023 History of Present illness Narrative* Mary Cha [...] (BAQSIMI) 3 mg/actuation nasal spray Use 1 Lafitte in the nose as needed for low [...] INTRAMUSCULAR SOLUTION Abelardo La documented in this encounterUniversity Hospitals Health System02-07-2023 History of Present illness Narrative* Leesa Huddleston PA-C - 10/04/2022 2:00 PM EST DATE OF SERVICE: 10/04/2022 PATIENT NAME: Kathleen Villa : 1995 AGE: 27 y.o. CLINIC NUMBER: [id number] Visit type: Established patient Chief Complaint Patient [...] 2:01 PM REFERRING MD: documented in this [facility]01-11-2023 Miscellaneous Notes* Telephone Encounter - David De Jesus RN - 09/07/2022 4:16 PM EST Completed PA via [employer]. CaseId:[id number]; Status:Approved; Valid08/08/2022 - 09/07/2023; Patient notified. * [...] medtronic pump, if possible. documented in this encounterUniversity Hospitals Health System12-22-2022 Miscellaneous Notes* Telephone Encounter - Lisa Aguilar LPN - 08/18/2022 3:37 PM EST Faxed completed form, last 2 Visit Progress Notes and pump upload to [facility] medical. Lisa Aguilar LPN * Telephone Encounter - Autumn Valadez APRN.CNP - 08/18/2022 3:28 PM EST Formsigned Autumn Valadez APRN.GRAIN INSPECTOR * Telephone Encounter - Lisa Aguilar LPN [...] PM EST Forms received via fax from [facility] Medical for CGM and pump supplies. [facility] Medical is requiring Last 2 [...] you, Lisa Aguilar LPN documented in this encounterUniversity Hospitals Health System12-20-2022 History of Present illness Narrative* Autumn Valadez [...] (BAQSIMI) 3 mg/actuation nasal spray Use 1 Lafitte in the nose as needed for low [...] Other maternal great grandma I reviewed the Psychiatric Aides Teacher's notes with this visit for vital signs, [...] long-term current use of insulin ([facility]) (primary encounter diagnosis) (Z96.41) Insulin pump status [...] November with Dr. Lewis 6 mo with id Autumn Valadez APRN.FRIEDA Endocrinology & Metabolism [place] documented in this encounterUniversity Hospitals Health System11-14-2022 History of Present illness Narrative* Kvng Lewis MD - 07/11/2022 11:00 AM EST VIRTUAL VISIT DIABETES NOTE Reason for Consultation: DM Type 1 HISTORY OF PRESENT ILLNESS: Ms. Villa is a 26 year old female presenting here today for a follow up of DM Type 1. She would like to transfer to care Dr. Khoury Lives in [place] Type 1 dx age 14 ( 12 [...] due to convenient location She lives in [place]. Dr. Khoury was managing patient during her [...] mouth every 6 hours as needed. lancets ([employer] LANCETS) 30 gauge 10 x daily DX [...] year old female is being evaluated via [facility] for DM1 Complicated patient with complex PMH [...] encourage patient to schedule appt with our PICTURE ENLARGER Autumn Valadez in the next 1-3 mos in person See me after 3 mos after h/o abnormal TSH I have place another order for TSH/ Free T4 and TPO AB Will also place another order for HGa1c as it is has been over 6mos Kvng Lewis MD I spent a total of 40 minutes on the date of the service which included [id number] patient care, completing clinical documentation, performing a [...] Yes Heat Intolerance?: Yes documented in this [facility]11-09-2022 Miscellaneous Notes* Telephone Encounter - Lisa Aguilar LPN - 07/06/2022 12:21 PM EST Called patient, left message to call office. Also, sent detailed Jol[employer] message re: upcoming Virtual appointment. Lisa Aguilar LPN * Telephone Encounter - Ira Maria - 07/06/2022 12:15 PM EST Pt calling, says she is returning call from nurse, does not remember the name of the nurse. She can be reached at [phone] documented in this [facility]10-20-2022 Miscellaneous Notes* Telephone Encounter - Anahi Benito MA - 06/16/2022 9:29 AM EDT Received [employer] form and placed on physicians desk for review. Form faxed with confirmation. documented in this [facility]10-12-2022 Miscellaneous Notes* Telephone Encounter - David De [...] fax form to fax number provided # [phone] Form has been forwarded to: SILVINO/nidia documented in this [facility]10-11-2022 History of Present illness Narrative* Phoebe Mckeon APRN.GRAIN INSPECTOR - 06/07/2022 2:25 PM EDT Kathleen Villa [...] done swinging. RTC- 1 yr/prn Phoebe Mckeon APRN.GRAIN INSPECTOR documented in this [facility]10-11-2022 Nurse Note* Alysha Petersen MA - 06/07/2022 2:11 PM EDT Pt is here today for JASON. Pt has no concerns at this time. documented in this [facility]09-16-2022 Miscellaneous Notes* Telephone Encounter - Anahi Benito MA - 05/13/2022 12:23 PM EDT Received [employer] forms for pump/cgm supplies. Patient next visit is in June and has not been seen since 08/24/2021. [employer] message sent to patient requesting pump upload. documented in this [facility]09-15-2022 Nurse Note* Zohreh Rodarte LPN - 05/12/2022 10:15 AM EDT Pt given 2 doses of Rocephin 250 mg, total 500 mg in the left buttock. Pt tolerated injection well.BP 110/70. documented in this [facility]09-15-2022 History of Present illness Narrative* Phoebe Mckeon APRN.CNP - 05/12/2022 9:34 AM EDT . documented in this [facility]09-13-2022 Miscellaneous Notes* Telephone Encounter - Dori Chapman [...] wks for a JASON Thanks Phoebe Mckeon APRN.GRAIN INSPECTOR documented in this [facility]09-07-2022 Miscellaneous Notes* Telephone Encounter - Sol Choe [...] for insulin aspart U-100 documented in this encounterUniversity Hospitals Health System09-06-2022 Miscellaneous Notes* Telephone Encounter - Darnell Vera RN - 05/03/2022 11:49 AM EDT Pended - please file if appropriate. documented in this [facility]09-06-2022 Miscellaneous Notes* Telephone Encounter - Clemencia Ma [...] needs scheduled appointment Yes documented in this encounterUniversity Hospitals Health System08-22-2022 Instructions* Patient Instructions* Dashawn Cain APRN.CNP - 04/18/2022 8:39 AM EDT Labs ordered- urine tests. Have done at [facility]gent care or [facility]. We will call with results. Referral placed to DERRICK WORKER clinic at [facility]. This should get in contact with you within the next couple weeks if not you may call central scheduling at [phone] to inquire about your appointment. documented in this encounterUniversity Hospitals Health System08-22-2022 History of Present illness Narrative* Dashawn Cain APRN.CNP - 04/18/2022 8:22 AM EDT This note was created using [employer]. Subjective Kathleen Villa is a 26 year [...] apparently. She does not have a current DIGITAL EXPERIENCE MANAGER. Her previous DERRICK WORKER is Dr. Kristin Garcia at [facility]. She had noticed some mild discharge. She [...] TABLET This note was partially generated using RuiYi voice recognition system. Dashawn Cain APRN.GRAIN INSPECTOR documented in this encounterUniversity Hospitals Health System07-15-2022 History of Present illness Narrative* Teressa Mckoy RN - 03/11/2022 1:10 PM EDT 2mg/2ml Activase instilled in port at 1207. Blood return obtained at 1255. 10ml withdrawn and discarded. Port flushed with saline and heparin per protocol. documented in this [facility]07-11-2022 History of Present illness Narrative* Teressa Mckoy RN - 03/07/2022 4:38 PM EDT Unable to obtain blood return. Will notify ordering practitioner for Activase order. Patient reports unable to stay today. Will return Monday03/11/22. documented in this encounterUniversity Hospitals Health System06-07-2022 [facility]05-06-2022 Miscellaneous Notes* Telephone Encounter - Anahi Haywood MA - 12/31/2021 11:44 AM EDT Received [facility] Medical request for most recent office notes and CGM data. Office notes printed for physicians signature. Called patient on mobile number and advised if she can upload her pump. Patient stated she is not at home and will upload as soon as she can. Advised patient no problem and she cansend [employer] message once upload is completed. Patient voiced understanding. documented in this encounterUniversity Hospitals Health System05-05-2022 [facility] [facility] Evaluation + Plan note Diagnostic Tests Pending * Complete Metabolic Panel 12/28/21 * Lipase Level 12/28/21 [facility] 04-30-2022 [facility]04-30-2022 Miscellaneous Notes* Telephone Encounter - Velia Kaur MD - 12/25/2021 12:42 PM EDT 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 She is out of infusion sets for [...] she has any difficulties. documented in this encounterUniversity [facility]als [facility] System04-11-2022 Miscellaneous Notes* Telephone Encounter - Loretta Brown Ma - 12/06/2021 9:00 AM EDT received a fax from [facility] Patient has been approved for insulin aspart U-100 (NOVOLOG U-100 INSULIN ASPART) 100 unit/mL from 11/02/2021 to 12/04/2022 No further action is needed documented in this encounterUniversity Hospitals Health System02-28-2022 [facility]02-25-2022 [facility]02-15-2022 Miscellaneous Notes* Telephone Encounter - Jess Guardado - 10/12/2021 10:25 AM EST Left VM for patient to call office to offer sooner apt with JOCELYNE Mcdonald. documented in this encounterUniversity Hospitals Health System10-09-2021 [facility]06-02[facility]2016 History of Past illness Narrative* Problem [...] 02/25/2014 morning - On fentanyl gtt per DIGITAL EXPERIENCE MANAGER Plan: - DIGITAL EXPERIENCE MANAGER team to round on patient and manage [...] arise --- Follows with Dr. Garcia at [facility] Plan: - Continuous monitoring - F/u DIGITAL EXPERIENCE MANAGER recs GBS (group B Streptococcus carrier), +RV culture @ 22 wks 11/11/2013 04/16/2014 Hypertension in , antepartum 09/19/2013 01/08/2014 DVT prophylaxis 12/25/2012 09/04/2013 Overview: IPCs DISPOSITION AND FOLLOW-UP 12/25/20122013 Overview: Full code Retinal detachment 10/26/2012 12/25/2012 documented as of this encounter (statuses as of 11/26/2021) [facility] of Past illness Narrative* Problem Noted [...] 02/25/2014 morning - On fentanyl gtt per DIGITAL EXPERIENCE MANAGER Plan: - DIGITAL EXPERIENCE MANAGER team to round on patient and manage [...] arise --- Follows with Dr. Garcia at [facility] Plan: - Continuous monitoring - F/u DIGITAL EXPERIENCE MANAGER recs GBS (group B Streptococcus carrier), +RV culture @ 22 wks 11/11/2013 04/16/2014 Hypertension in , antepartum 09/19/2013 01/08/2014 DVT prophylaxis 12/25/2012 09/04/2013 Overview: IPCs DISPOSITION AND FOLLOW-UP 12/25/20122013 Overview: Full code Retinal detachment 10/26/2012 12/25/2012 documented as of this encounter (statuses as of 11/27/2021) [facility] illness Narrative* Problem Noted [...] 02/25/2014 morning - On fentanyl gtt per DIGITAL EXPERIENCE MANAGER Plan: - DIGITAL EXPERIENCE MANAGER team to round on patient and manage [...] arise --- Follows with Dr. Garcia at [facility] Plan: - Continuous monitoring - F/u DIGITAL EXPERIENCE MANAGER recs GBS (group B Streptococcus carrier), +RV culture @ 22 wks 11/11/2013 04/16/2014 Hypertension in , antepartum 09/19/2013 01/08/2014 DVT prophylaxis 12/25/2012 09/04/2013 Overview: IPCs DISPOSITION AND FOLLOW-UP 12/25/20122013 Overview: Full code Retinal detachment 10/26/2012 12/25/2012 documented as of this encounter (statuses as of 12/06/2021) [facility] of [facility] illness Narrative* Problem Noted [...] 02/25/2014 morning - On fentanyl gtt per DIGITAL EXPERIENCE MANAGER Plan: - DIGITAL EXPERIENCE MANAGER team to round on patient and manage [...] arise --- Follows with Dr. Garcia at [facility] Plan: - Continuous monitoring - F/u DIGITAL EXPERIENCE MANAGER recs GBS (group B Streptococcus carrier), +RV culture @ 22 wks 11/11/2013 04/16/2014 Hypertension in , antepartum 09/19/2013 01/08/2014 DVT prophylaxis 12/25/2012 09/04/2013 Overview: IPCs DISPOSITION AND FOLLOW-UP 12/25/20122013 Overview: Full code Retinal detachment 10/26/2012 12/25/2012 documented as of this encounter (statuses as of 12/26/2021) [facility] Narrative* Problem Noted [...] 02/25/2014 morning - On fentanyl gtt per DIGITAL EXPERIENCE MANAGER Plan: - DIGITAL EXPERIENCE MANAGER team to round on patient and manage [...] arise --- Follows with Dr. Garcia at [facility] Plan: - Continuous monitoring - F/u DIGITAL EXPERIENCE MANAGER recs GBS (group B Streptococcus carrier), +RV culture @ 22 wks 11/11/2013 04/16/2014 Hypertension in , antepartum 09/19/2013 01/08/2014 DVT prophylaxis 12/25/2012 09/04/2013 Overview: IPCs DISPOSITION AND FOLLOW-UP 12/25/20122013 Overview: Full code Retinal detachment 10/26/2012 12/25/2012 documented as of this encounter (statuses as of 12/27/2021) [facility] Narrative* Problem Noted [...] 02/25/2014 morning - On fentanyl gtt per DIGITAL EXPERIENCE MANAGER Plan: - DIGITAL EXPERIENCE MANAGER team to round on patient and manage [...] arise --- Follows with Dr. Garcia at [facility] Plan: - Continuous monitoring - F/u DIGITAL EXPERIENCE MANAGER recs GBS (group B Streptococcus carrier), +RV culture @ 22 wks 11/11/2013 04/16/2014 Hypertension in , antepartum 09/19/2013 01/08/2014 DVT prophylaxis 12/25/2012 09/04/2013 Overview: IPCs DISPOSITION AND FOLLOW-UP 12/25/20122013 Overview: Full code Retinal detachment 10/26/2012 12/25/2012 documented as of this encounter (statuses as of 12/29/2021) [facility] Narrative* Problem Noted [...] 02/25/2014 morning - On fentanyl gtt per DIGITAL EXPERIENCE MANAGER Plan: - DIGITAL EXPERIENCE MANAGER team to round on patient and manage [...] arise --- Follows with Dr. Garcia at [facility] Plan: - Continuous monitoring - F/u DIGITAL EXPERIENCE MANAGER recs GBS (group B Streptococcus carrier), +RV culture @ 22 wks 11/11/2013 04/16/2014 Hypertension in , antepartum 09/19/2013 01/08/2014 DVT prophylaxis 12/25/2012 09/04/2013 Overview: IPCs DISPOSITION AND FOLLOW-UP 12/25/20122013 Overview: Full code Retinal detachment 10/26/2012 12/25/2012 documented as of this encounter (statuses as of 01/28/2022) [facility] Narrative* Problem Noted [...] 02/25/2014 morning - On fentanyl gtt per DIGITAL EXPERIENCE MANAGER Plan: - DIGITAL EXPERIENCE MANAGER team to round on patient and manage [...] arise --- Follows with Dr. Garcia at [facility] Plan: - Continuous monitoring - F/u DIGITAL EXPERIENCE MANAGER recs GBS (group B Streptococcus carrier), +RV culture @ 22 wks 11/11/2013 04/16/2014 Hypertension in , antepartum 09/19/2013 01/08/2014 DVT prophylaxis 12/25/2012 09/04/2013 Overview: IPCs DISPOSITION AND FOLLOW-UP 12/25/20122013 Overview: Full code Retinal detachment 10/26/2012 12/25/2012 documented as of this encounter (statuses as of 01/30/2022) [facility] Narrative* Problem Noted [...] 02/25/2014 morning - On fentanyl gtt per DIGITAL EXPERIENCE MANAGER Plan: - DIGITAL EXPERIENCE MANAGER team to round on patient and manage [...] arise --- Follows with Dr. Garcia at [facility] Plan: - Continuous monitoring - F/u DIGITAL EXPERIENCE MANAGER recs GBS (group B Streptococcus carrier), +RV culture @ 22 wks 11/11/2013 04/16/2014 Hypertension in , antepartum 09/19/2013 01/08/2014 DVT prophylaxis 12/25/2012 09/04/2013 Overview: IPCs DISPOSITION AND FOLLOW-UP 12/25/20122013 Overview: Full code Retinal detachment 10/26/2012 12/25/2012 documented as of this encounter (statuses as of 02/24/2022) [facility] Narrative* Problem Noted [...] 02/25/2014 morning - On fentanyl gtt per DIGITAL EXPERIENCE MANAGER Plan: - DIGITAL EXPERIENCE MANAGER team to round on patient and manage [...] arise --- Follows with Dr. Garcia at [facility] Plan: - Continuous monitoring - F/u DIGITAL EXPERIENCE MANAGER recs GBS (group B Streptococcus carrier), +RV culture @ 22 wks 11/11/2013 04/16/2014 Hypertension in , antepartum 09/19/2013 01/08/2014 DVT prophylaxis 12/25/2012 09/04/2013 Overview: IPCs DISPOSITION AND FOLLOW-UP 12/25/20122013 Overview: Full code Retinal detachment 10/26/2012 12/25/2012 documented as of this encounter (statuses as of 03/01/2022) [facility] Narrative* Problem Noted [...] 02/25/2014 morning - On fentanyl gtt per DIGITAL EXPERIENCE MANAGER Plan: - DIGITAL EXPERIENCE MANAGER team to round on patient and manage [...] arise --- Follows with Dr. Garcia at [facility] Plan: - Continuous monitoring - F/u DIGITAL EXPERIENCE MANAGER recs GBS (group B Streptococcus carrier), +RV culture @ 22 wks 11/11/2013 04/16/2014 Hypertension in , antepartum 09/19/2013 01/08/2014 DVT prophylaxis 12/25/2012 09/04/2013 Overview: IPCs DISPOSITION AND FOLLOW-UP 12/25/20122013 Overview: Full code Retinal detachment 10/26/2012 12/25/2012 documented as of this encounter (statuses as of 03/07/2022) [facility] Narrative* Problem Noted [...] 02/25/2014 morning - On fentanyl gtt per DIGITAL EXPERIENCE MANAGER Plan: - DIGITAL EXPERIENCE MANAGER team to round on patient and manage [...] arise --- Follows with Dr. Garcia at [facility] Plan: - Continuous monitoring - F/u DIGITAL EXPERIENCE MANAGER recs GBS (group B Streptococcus carrier), +RV culture @ 22 wks 11/11/2013 04/16/2014 Hypertension in , antepartum 09/19/2013 01/08/2014 DVT prophylaxis 12/25/2012 09/04/2013 Overview: IPCs DISPOSITION AND FOLLOW-UP 12/25/20122013 Overview: Full code Retinal detachment 10/26/2012 12/25/2012 documented as of this encounter (statuses as of 03/10/2022) [facility] Narrative* Problem Noted [...] 02/25/2014 morning - On fentanyl gtt per DIGITAL EXPERIENCE MANAGER Plan: - DIGITAL EXPERIENCE MANAGER team to round on patient and manage [...] arise --- Follows with Dr. Garcia at [facility] Plan: - Continuous monitoring - F/u DIGITAL EXPERIENCE MANAGER recs GBS (group B Streptococcus carrier), +RV culture @ 22 wks 11/11/2013 04/16/2014 Hypertension in , antepartum 09/19/2013 01/08/2014 DVT prophylaxis 12/25/2012 09/04/2013 Overview: IPCs DISPOSITION AND FOLLOW-UP 12/25/20122013 Overview: Full code Retinal detachment 10/26/2012 12/25/2012 documented as of this encounter (statuses as of 03/11/2022) [facility] Narrative* Problem Noted [...] 02/25/2014 morning - On fentanyl gtt per DIGITAL EXPERIENCE MANAGER Plan: - DIGITAL EXPERIENCE MANAGER team to round on patient and manage [...] arise --- Follows with Dr. Garcia at [facility] Plan: - Continuous monitoring - F/u DIGITAL EXPERIENCE MANAGER recs GBS (group B Streptococcus carrier), +RV culture @ 22 wks 11/11/2013 04/16/2014 Hypertension in , antepartum 09/19/2013 01/08/2014 DVT prophylaxis 12/25/2012 09/04/2013 Overview: IPCs DISPOSITION AND FOLLOW-UP 12/25/20122013 Overview: Full code Retinal detachment 10/26/2012 12/25/2012 documented as of this encounter (statuses as of 04/18/2022) [facility] Narrative* Problem Noted [...] 02/25/2014 morning - On fentanyl gtt per DIGITAL EXPERIENCE MANAGER Plan: - DIGITAL EXPERIENCE MANAGER team to round on patient and manage [...] arise --- Follows with Dr. Garcia at [facility] Plan: - Continuous monitoring - F/u DIGITAL EXPERIENCE MANAGER recs GBS (group B Streptococcus carrier), +RV culture @ 22 wks 11/11/2013 04/16/2014 Hypertension in , antepartum 09/19/2013 01/08/2014 DVT prophylaxis 12/25/2012 09/04/2013 Overview: IPCs DISPOSITION AND FOLLOW-UP 12/25/20122013 Overview: Full code Retinal detachment 10/26/2012 12/25/2012 documented as of this encounter (statuses as of 05/03/2022) [facility] Narrative* Problem Noted [...] 02/25/2014 morning - On fentanyl gtt per DIGITAL EXPERIENCE MANAGER Plan: - DIGITAL EXPERIENCE MANAGER team to round on patient and manage [...] arise --- Follows with Dr. Garcia at [facility] Plan: - Continuous monitoring - F/u DIGITAL EXPERIENCE MANAGER recs GBS (group B Streptococcus carrier), +RV culture @ 22 wks 11/11/2013 04/16/2014 Hypertension in , antepartum 09/19/2013 01/08/2014 DVT prophylaxis 12/25/2012 09/04/2013 Overview: IPCs DISPOSITION AND FOLLOW-UP 12/25/20122013 Overview: Full code Retinal detachment 10/26/2012 12/25/2012 documented as of this encounter (statuses as of 05/03/2022) [facility] Narrative* Problem Noted [...] 02/25/2014 morning - On fentanyl gtt per DIGITAL EXPERIENCE MANAGER Plan: - DIGITAL EXPERIENCE MANAGER team to round on patient and manage [...] arise --- Follows with Dr. Garcia at [facility] Plan: - Continuous monitoring - F/u DIGITAL EXPERIENCE MANAGER recs GBS (group B Streptococcus carrier), +RV culture @ 22 wks 11/11/2013 04/16/2014 Hypertension in , antepartum 09/19/2013 01/08/2014 DVT prophylaxis 12/25/2012 09/04/2013 Overview: IPCs DISPOSITION AND FOLLOW-UP 12/25/20122013 Overview: Full code Retinal detachment 10/26/2012 12/25/2012 documented as of this encounter (statuses as of 05/04/2022) [facility] Narrative* Problem Noted [...] 02/25/2014 morning - On fentanyl gtt per DIGITAL EXPERIENCE MANAGER Plan: - DIGITAL EXPERIENCE MANAGER team to round on patient and manage [...] arise --- Follows with Dr. Garcia at [facility] Plan: - Continuous monitoring - F/u DIGITAL EXPERIENCE MANAGER recs GBS (group B Streptococcus carrier), +RV culture @ 22 wks 11/11/2013 04/16/2014 Hypertension in , antepartum 09/19/2013 01/08/2014 DVT prophylaxis 12/25/2012 09/04/2013 Overview: IPCs DISPOSITION AND FOLLOW-UP 12/25/20122013 Overview: Full code Retinal detachment 10/26/2012 12/25/2012 documented as of this encounter (statuses as of 05/10/2022) [facility] Narrative* Problem Noted [...] 02/25/2014 morning - On fentanyl gtt per DIGITAL EXPERIENCE MANAGER Plan: - DIGITAL EXPERIENCE MANAGER team to round on patient and manage [...] arise --- Follows with Dr. Garcia at [facility] Plan: - Continuous monitoring - F/u DIGITAL EXPERIENCE MANAGER recs GBS (group B Streptococcus carrier), +RV culture @ 22 wks 11/11/2013 04/16/2014 Hypertension in , antepartum 09/19/2013 01/08/2014 DVT prophylaxis 12/25/2012 09/04/2013 Overview: IPCs DISPOSITION AND FOLLOW-UP 12/25/20122013 Overview: Full code Retinal detachment 10/26/2012 12/25/2012 documented as of this encounter (statuses as of 05/11/2022) [facility] Narrative* Problem Noted [...] 02/25/2014 morning - On fentanyl gtt per DIGITAL EXPERIENCE MANAGER Plan: - DIGITAL EXPERIENCE MANAGER team to round on patient and manage [...] arise --- Follows with Dr. Garcia at [facility] Plan: - Continuous monitoring - F/u DIGITAL EXPERIENCE MANAGER recs GBS (group B Streptococcus carrier), +RV culture @ 22 wks 11/11/2013 04/16/2014 Hypertension in , antepartum 09/19/2013 01/08/2014 DVT prophylaxis 12/25/2012 09/04/2013 Overview: IPCs DISPOSITION AND FOLLOW-UP 12/25/20122013 Overview: Full code Retinal detachment 10/26/2012 12/25/2012 documented as of this encounter (statuses as of 05/12/2022) [facility] Narrative* Problem Noted [...] 02/25/2014 morning - On fentanyl gtt per DIGITAL EXPERIENCE MANAGER Plan: - DIGITAL EXPERIENCE MANAGER team to round on patient and manage [...] arise --- Follows with Dr. Garcia at [facility] Plan: - Continuous monitoring - F/u DIGITAL EXPERIENCE MANAGER recs GBS (group B Streptococcus carrier), +RV culture @ 22 wks 11/11/2013 04/16/2014 Hypertension in , antepartum 09/19/2013 01/08/2014 DVT prophylaxis 12/25/2012 09/04/2013 Overview: IPCs DISPOSITION AND FOLLOW-UP 12/25/20122013 Overview: Full code Retinal detachment 10/26/2012 12/25/2012 documented as of this encounter (statuses as of 05/13/2022) [facility] Narrative* Problem Noted [...] 02/25/2014 morning - On fentanyl gtt per DIGITAL EXPERIENCE MANAGER Plan: - DIGITAL EXPERIENCE MANAGER team to round on patient and manage [...] arise --- Follows with Dr. Garcia at [facility] Plan: - Continuous monitoring - F/u DIGITAL EXPERIENCE MANAGER recs GBS (group B Streptococcus carrier), +RV culture @ 22 wks 11/11/2013 04/16/2014 Hypertension in , antepartum 09/19/2013 01/08/2014 DVT prophylaxis 12/25/2012 09/04/2013 Overview: IPCs DISPOSITION AND FOLLOW-UP 12/25/20122013 Overview: Full code Retinal detachment 10/26/2012 12/25/2012 documented as of this encounter (statuses as of 05/30/2022) [facility] Narrative* Problem Noted [...] 02/25/2014 morning - On fentanyl gtt per DIGITAL EXPERIENCE MANAGER Plan: - DIGITAL EXPERIENCE MANAGER team to round on patient and manage [...] arise --- Follows with Dr. Garcia at [facility] Plan: - Continuous monitoring - F/u DIGITAL EXPERIENCE MANAGER recs GBS (group B Streptococcus carrier), +RV culture @ 22 wks 11/11/2013 04/16/2014 Hypertension in , antepartum 09/19/2013 01/08/2014 DVT prophylaxis 12/25/2012 09/04/2013 Overview: IPCs DISPOSITION AND FOLLOW-UP 12/25/20122013 Overview: Full code Retinal detachment 10/26/2012 12/25/2012 documented as of this encounter (statuses as of 06/07/2022) [facility] Narrative* Problem Noted [...] 02/25/2014 morning - On fentanyl gtt per DIGITAL EXPERIENCE MANAGER Plan: - DIGITAL EXPERIENCE MANAGER team to round on patient and manage [...] arise --- Follows with Dr. Garcia at [facility] Plan: - Continuous monitoring - F/u DIGITAL EXPERIENCE MANAGER recs GBS (group B Streptococcus carrier), +RV culture @ 22 wks 11/11/2013 04/16/2014 Hypertension in , antepartum 09/19/2013 01/08/2014 DVT prophylaxis 12/25/2012 09/04/2013 Overview: IPCs DISPOSITION AND FOLLOW-UP 12/25/20122013 Overview: Full code Retinal detachment 10/26/2012 12/25/2012 documented as of this encounter (statuses as of 06/08/2022) [facility] Narrative* Problem Noted [...] 02/25/2014 morning - On fentanyl gtt per DIGITAL EXPERIENCE MANAGER Plan: - DIGITAL EXPERIENCE MANAGER team to round on patient and manage [...] arise --- Follows with Dr. Garcia at [facility] Plan: - Continuous monitoring - F/u DIGITAL EXPERIENCE MANAGER recs GBS (group B Streptococcus carrier), +RV culture @ 22 wks 11/11/2013 04/16/2014 Hypertension in , antepartum 09/19/2013 01/08/2014 DVT prophylaxis 12/25/2012 09/04/2013 Overview: IPCs DISPOSITION AND FOLLOW-UP 12/25/20122013 Overview: Full code Retinal detachment 10/26/2012 12/25/2012 documented as of this encounter (statuses as of 06/16/2022) [facility] Narrative* Problem Noted [...] 02/25/2014 morning - On fentanyl gtt per DIGITAL EXPERIENCE MANAGER Plan: - DIGITAL EXPERIENCE MANAGER team to round on patient and manage [...] arise --- Follows with Dr. Garcia at [facility] Plan: - Continuous monitoring - F/u DIGITAL EXPERIENCE MANAGER recs GBS (group B Streptococcus carrier), +RV culture @ 22 wks 11/11/2013 04/16/2014 Hypertension in , antepartum 09/19/2013 01/08/2014 DVT prophylaxis 12/25/2012 09/04/2013 Overview: IPCs DISPOSITION AND FOLLOW-UP 12/25/20122013 Overview: Full code Retinal detachment 10/26/2012 12/25/2012 documented as of this encounter (statuses as of 07/12/2022) [facility] Narrative* Problem Noted [...] 02/25/2014 morning - On fentanyl gtt per DIGITAL EXPERIENCE MANAGER Plan: - DIGITAL EXPERIENCE MANAGER team to round on patient and manage [...] arise --- Follows with Dr. Garcia at [facility] Plan: - Continuous monitoring - F/u DIGITAL EXPERIENCE MANAGER recs GBS (group B Streptococcus carrier), +RV culture @ 22 wks 11/11/2013 04/16/2014 Hypertension in , antepartum 09/19/2013 01/08/2014 DVT prophylaxis 12/25/2012 09/04/2013 Overview: IPCs DISPOSITION AND FOLLOW-UP 12/25/20122013 Overview: Full code Retinal detachment 10/26/2012 12/25/2012 documented as of this encounter (statuses as of 07/25/2022) [facility] Narrative* Problem Noted [...] 02/25/2014 morning - On fentanyl gtt per DIGITAL EXPERIENCE MANAGER Plan: - DIGITAL EXPERIENCE MANAGER team to round on patient and manage [...] arise --- Follows with Dr. Garcia at [facility] Plan: - Continuous monitoring - F/u DIGITAL EXPERIENCE MANAGER recs GBS (group B Streptococcus carrier), +RV culture @ 22 wks 11/11/2013 04/16/2014 Hypertension in , antepartum 09/19/2013 01/08/2014 DVT prophylaxis 12/25/2012 09/04/2013 Overview: IPCs DISPOSITION AND FOLLOW-UP 12/25/20122013 Overview: Full code Retinal detachment 10/26/2012 12/25/2012 documented as of this encounter (statuses as of 08/05/2022) [facility] Narrative* Problem Noted [...] 02/25/2014 morning - On fentanyl gtt per DIGITAL EXPERIENCE MANAGER Plan: - DIGITAL EXPERIENCE MANAGER team to round on patient and manage [...] arise --- Follows with Dr. Garcia at [facility] Plan: - Continuous monitoring - F/u DIGITAL EXPERIENCE MANAGER recs GBS (group B Streptococcus carrier), +RV culture @ 22 wks 11/11/2013 04/16/2014 Hypertension in , antepartum 09/19/2013 01/08/2014 DVT prophylaxis 12/25/2012 09/04/2013 Overview: IPCs DISPOSITION AND FOLLOW-UP 12/25/20122013 Overview: Full code Retinal detachment 10/26/2012 12/25/2012 documented as of this encounter (statuses as of 08/16/2022) [facility] Narrative* Problem Noted [...] 02/25/2014 morning - On fentanyl gtt per DIGITAL EXPERIENCE MANAGER Plan: - DIGITAL EXPERIENCE MANAGER team to round on patient and manage [...] arise --- Follows with Dr. Garcia at [facility] Plan: - Continuous monitoring - F/u DIGITAL EXPERIENCE MANAGER recs GBS (group B Streptococcus carrier), +RV culture @ 22 wks 11/11/2013 04/16/2014 Hypertension in , antepartum 09/19/2013 01/08/2014 DVT prophylaxis 12/25/2012 09/04/2013 Overview: IPCs DISPOSITION AND FOLLOW-UP 12/25/20122013 Overview: Full code Retinal detachment 10/26/2012 12/25/2012 documented as of this encounter (statuses as of 09/02/2022) [facility] Narrative* Problem Noted [...] 02/25/2014 morning - On fentanyl gtt per DIGITAL EXPERIENCE MANAGER Plan: - DIGITAL EXPERIENCE MANAGER team to round on patient and manage [...] arise --- Follows with Dr. Garcia at [facility] Plan: - Continuous monitoring - F/u DIGITAL EXPERIENCE MANAGER recs GBS (group B Streptococcus carrier), +RV culture @ 22 wks 11/11/2013 04/16/2014 Hypertension in , antepartum 09/19/2013 01/08/2014 DVT prophylaxis 12/25/2012 09/04/2013 Overview: IPCs DISPOSITION AND FOLLOW-UP 12/25/20122013 Overview: Full code Retinal detachment 10/26/2012 12/25/2012 documented as of this encounter (statuses as of 09/07/2022) [facility] of Past illness Narrative* Problem Noted [...] 02/25/2014 morning - On fentanyl gtt per DIGITAL EXPERIENCE MANAGER Plan: - DIGITAL EXPERIENCE MANAGER team to round on patient and manage [...] arise --- Follows with Dr. Garcia at [facility] Plan: - Continuous monitoring - F/u DIGITAL EXPERIENCE MANAGER recs GBS (group B Streptococcus carrier), +RV culture @ 22 wks 11/11/2013 04/16/2014 Hypertension in , antepartum 09/19/2013 01/08/2014 DVT prophylaxis 12/25/2012 09/04/2013 Overview: IPCs DISPOSITION AND FOLLOW-UP 12/25/20122013 Overview: Full code Retinal detachment 10/26/2012 12/25/2012 documented as of this encounter (statuses as of 09/20/2022) [facility] of Past illness Narrative* Problem Noted [...] 02/25/2014 morning - On fentanyl gtt per DIGITAL EXPERIENCE MANAGER Plan: - DIGITAL EXPERIENCE MANAGER team to round on patient and manage [...] arise --- Follows with Dr. Garcia at [facility] Plan: - Continuous monitoring - F/u DIGITAL EXPERIENCE MANAGER recs GBS (group B Streptococcus carrier), +RV culture @ 22 wks 11/11/2013 04/16/2014 Hypertension in , antepartum 09/19/2013 01/08/2014 DVT prophylaxis 12/25/2012 09/04/2013 Overview: IPCs DISPOSITION AND FOLLOW-UP 12/25/20122013 Overview: Full code Retinal detachment 10/26/2012 12/25/2012 documented as of this encounter (statuses as of 10/22/2022) [facility] of Past illness Narrative* Problem Noted [...] 02/25/2014 morning - On fentanyl gtt per DIGITAL EXPERIENCE MANAGER Plan: - DIGITAL EXPERIENCE MANAGER team to round on patient and manage [...] arise --- Follows with Dr. Garcia at [facility] Plan: - Continuous monitoring - F/u DIGITAL EXPERIENCE MANAGER recs GBS (group B Streptococcus carrier), +RV culture @ 22 wks 11/11/2013 04/16/2014 Hypertension in , antepartum 09/19/2013 01/08/2014 DVT prophylaxis 12/25/2012 09/04/2013 Overview: IPCs DISPOSITION AND FOLLOW-UP 12/25/20122013 Overview: Full code Retinal detachment 10/26/2012 12/25/2012 documented as of this encounter (statuses as of 11/03/2022) [facility] of Past illness Narrative* Problem Noted [...] 02/25/2014 morning - On fentanyl gtt per DIGITAL EXPERIENCE MANAGER Plan: - DIGITAL EXPERIENCE MANAGER team to round on patient and manage [...] arise --- Follows with Dr. Garcia at [facility] Plan: - Continuous monitoring - F/u DIGITAL EXPERIENCE MANAGER recs GBS (group B Streptococcus carrier), +RV culture @ 22 wks 11/11/2013 04/16/2014 Hypertension in , antepartum 09/19/2013 01/08/2014 DVT prophylaxis 12/25/2012 09/04/2013 Overview: IPCs DISPOSITION AND FOLLOW-UP 12/25/20122013 Overview: Full code Retinal detachment 10/26/2012 12/25/2012 documented as of this encounter (statuses as of 11/07/2022) [facility] of Past illness Narrative* Problem Noted [...] 02/25/2014 morning - On fentanyl gtt per DIGITAL EXPERIENCE MANAGER Plan: - DIGITAL EXPERIENCE MANAGER team to round on patient and manage care Diabetic ketoacidosis withou t coma associated with type 1 diabetes mellitus 01/08/2014 02/04/2023 Overview: Type 1 diabetes with poor control, frequent DKA episodes --- Throughout the day she takes insulin to keep sugars 80-150 - Presented to [facility] on 01/08/2014 with sub-sternal chest pain [...] arise --- Follows with Dr. Garcia at [facility] Plan: - Continuous monitoring - F/u DIGITAL EXPERIENCE MANAGER recs GBS (group B Streptococcus carrier), +RV culture @ 22 wks 11/11/2013 04/16/2014 Hypertension in , antepartum 09/19/2013 01/08/2014 DVT prophylaxis 12/25/2012 09/04/2013 Overview: IPCs DISPOSITION AND FOLLOW-UP 12/25/20122013 Overview: Full code Retinal detachment 10/26/2012 12/25/2012 documented as of this encounter (statuses as of 02/08/2023) [facility] of Past illness Narrative* Problem Noted [...] 02/25/2014 morning - On fentanyl gtt per DIGITAL EXPERIENCE MANAGER Plan: - DIGITAL EXPERIENCE MANAGER team to round on patient and manage care Diabetic ketoacidosis withou t coma associated with type 1 diabetes mellitus 01/08/2014 02/04/2023 Overview: Type 1 diabetes with poor control, frequent DKA episodes --- Throughout the day she takes insulin to keep sugars 80-150 - Presented to [facility] on 01/08/2014 with sub-sternal chest pain [...] arise --- Follows with Dr. Garcia at [facility] Plan: - Continuous monitoring - F/u DIGITAL EXPERIENCE MANAGER recs GBS (group B Streptococcus carrier), +RV culture @ 22 wks 11/11/2013 04/16/2014 Hypertension in , antepartum 09/19/2013 01/08/2014 DVT prophylaxis 12/25/2012 09/04/2013 Overview: IPCs DISPOSITION AND FOLLOW-UP 12/25/20122013 Overview: Full code Retinal detachment 10/26/2012 12/25/2012 documented as of this encounter (statuses as of 02/15/2023) [facility] of Past illness Narrative* Problem Noted [...] 02/25/2014 morning - On fentanyl gtt per DIGITAL EXPERIENCE MANAGER Plan: - DIGITAL EXPERIENCE MANAGER team to round on patient and manage care Diabetic ketoacidosis withou t coma associated with type 1 diabetes mellitus 01/08/2014 02/04/2023 Overview: Type 1 diabetes with poor control, frequent DKA episodes --- Throughout the day she takes insulin to keep sugars 80-150 - Presented to [facility] on 01/08/2014 with sub-sternal chest pain [...] arise --- Follows with Dr. Garcia at [facility] Plan: - Continuous monitoring - F/u DIGITAL EXPERIENCE MANAGER recs GBS (group B Streptococcus c arrier), +RV culture @ 22 wks 11/11/2013 04/16/2014 Hypertension in , antepartum 09/19/2013 01/08/2014 DVT prophylaxis 12/25/2012 09/04/2013 Overview: IPCs DISPOSITION AND FOLLOW-UP 12/25/2012 Overview: Full code Retinal detachment 10/26/2012 3 documented as of this encounter (statuses as of 06/02/2023) [facility] of Past illness Narrative* Problem Noted [...] 02/25/2014 morning - On fentanyl gtt per DIGITAL EXPERIENCE MANAGER Plan: - DIGITAL EXPERIENCE MANAGER team to round on patient and manage care Diabetic ketoacidosis withou t coma associated with type 1 diabetes mellitus 01/08/2014 02/04/2023 Overview: Type 1 diabetes with poor control, frequent DKA episodes --- Throughout the day she takes insulin to keep sugars 80-150 - Presented to [facility] on 01/08/2014 with sub-sternal chest pain [...] arise --- Follows with Dr. Garcia at [facility] Plan: - Continuous monitoring - F/u DIGITAL EXPERIENCE MANAGER recs GBS (group B Streptococcus c arrier), +RV culture @ 22 wks 11/11/2013 04/16/2014 Hypertension in , antepartum 09/19/2013 01/08/2014 DVT prophylaxis 12/25/2012 09/04/2013 Overview: IPCs DISPOSITION AND FOLLOW-UP 12/25/2012 Overview: Full code Retinal detachment 10/26/2012 3 documented as of this encounter (statuses as of 08/16/2023) [facility] of Past illness Narrative* Problem Noted [...] 02/25/2014 morning - On fentanyl gtt per DIGITAL EXPERIENCE MANAGER Plan: - DIGITAL EXPERIENCE MANAGER team to round on patient and manage care Diabetic ketoacidosis withou t coma associated with type 1 diabetes mellitus 01/08/2014 02/04/2023 Overview: Type 1 diabetes with poor control, frequent DKA episodes --- Throughout the day she takes insulin to keep sugars 80-150 - Presented to [facility] on 01/08/2014 with sub-sternal chest pain [...] arise --- Follows with Dr. Garcia at [facility] Plan: - Continuous monitoring - F/u DIGITAL EXPERIENCE MANAGER recs GBS (group B Streptococcus c arrier), +RV culture @ 22 wks 11/11/2013 04/16/2014 Hypertension in , antepartum 09/19/2013 01/08/2014 DVT prophylaxis 12/25/2012 09/04/2013 Overview: IPCs DISPOSITION AND FOLLOW-UP 12/25/2012 Overview: Full code Retinal detachment 10/26/2012 3 documented as of this encounter (statuses as of 09/29/2023) [facility] of Past illness Narrative* Problem Noted [...] 02/25/2014 morning - On fentanyl gtt per DIGITAL EXPERIENCE MANAGER Plan: - DIGITAL EXPERIENCE MANAGER team to round on patient and manage care Diabetic ketoacidosis withou t coma associated with type 1 diabetes mellitus 01/08/2014 02/04/2023 Overview: Type 1 diabetes with poor control, frequent DKA episodes --- Throughout the day she takes insulin to keep sugars 80-150 - Presented to [facility] on 01/08/2014 with sub-sternal chest pain [...] arise --- Follows with Dr. Garcia at [facility] Plan: - Continuous monitoring - F/u DIGITAL EXPERIENCE MANAGER recs GBS (group B Streptococcus c arrier), +RV culture @ 22 wks 11/11/2013 04/16/2014 Hypertension in , antepartum 09/19/2013 01/08/2014 DVT prophylaxis 12/25/2012 09/04/2013 Overview: IPCs DISPOSITION AND FOLLOW-UP 12/25/2012 Overview: Full code Retinal detachment 10/26/2012 3 documented as of this encounter (statuses as of 09/29/2023) [facility] of Past illness Narrative* Problem Noted [...] 02/25/2014 morning - On fentanyl gtt per DIGITAL EXPERIENCE MANAGER Plan: - DIGITAL EXPERIENCE MANAGER team to round on patient and manage care Diabetic ketoacidosis withou t coma associated with type 1 diabetes mellitus 01/08/2014 02/04/2023 Overview: Type 1 diabetes with poor control, frequent DKA episodes --- Throughout the day she takes insulin to keep sugars 80-150 - Presented to [facility] on 01/08/2014 with sub-sternal chest pain [...] arise --- Follows with Dr. Garcia at [facility] Plan: - Continuous monitoring - F/u DIGITAL EXPERIENCE MANAGER recs GBS (group B Streptococcus c arrier), +RV culture @ 22 wks 11/11/2013 04/16/2014 Hypertension in , antepartum 09/19/2013 01/08/2014 DVT prophylaxis 12/25/2012 09/04/2013 Overview: IPCs DISPOSITION AND FOLLOW-UP 12/25/2012 Overview: Full code Retinal detachment 10/26/2012 3 documented as of this encounter (statuses as of 10/04/2023) [facility] of Past illness Narrative* Problem Noted [...] 02/25/2014 morning - On fentanyl gtt per DIGITAL EXPERIENCE MANAGER Plan: - DIGITAL EXPERIENCE MANAGER team to round on patient and manage care Diabetic ketoacidosis withou t coma associated with type 1 diabetes mellitus 01/08/2014 02/04/2023 Overview: Type 1 diabetes with poor control, frequent DKA episodes --- Throughout the day she takes insulin to keep sugars 80-150 - Presented to [facility] on 01/08/2014 with sub-sternal chest pain [...] arise --- Follows with Dr. Garcia at [facility] Plan: - Continuous monitoring - F/u DIGITAL EXPERIENCE MANAGER recs GBS (group B Streptococcus c gregorio), +RV culture @ 22 wks 11/11/2013 04/16/2014 Hypertension in , antepartum 09/19/2013 01/08/2014 DVT prophylaxis 12/25/2012 09/04/2013 Overview: IPCs DISPOSITION AND FOLLOW-UP 12/25/2012 Overview: Full code Retinal detachment 10/26/2012 3 documented as of this encounter (statuses as of 10/12/2023) [facility] of Past illness Narrative* Problem Noted [...] 02/25/2014 morning - On fentanyl gtt per DIGITAL EXPERIENCE MANAGER Plan: - DIGITAL EXPERIENCE MANAGER team to round on patient and manage care Diabetic ketoacidosis withou t coma associated with type 1 diabetes mellitus 01/08/2014 02/04/2023 Overview: Type 1 diabetes with poor control, frequent DKA episodes --- Throughout the day she takes insulin to keep sugars 80-150 - Presented to [facility] on 01/08/2014 with sub-sternal chest pain [...] arise --- Follows with Dr. Garcia at [facility] Plan: - Continuous monitoring - F/u DIGITAL EXPERIENCE MANAGER recs GBS (group B Streptococcus c arrhilary), +RV culture @ 22 wks 11/11/2013 04/16/2014 Hypertension in , antepartum 09/19/2013 01/08/2014 DVT prophylaxis 12/25/2012 09/04/2013 Overview: IPCs DISPOSITION AND FOLLOW-UP 12/25/2012 Overview: Full code Retinal detachment 10/26/2012 3 documented as of this encounter (statuses as of 10/19/2023) [facility] of Past illness Narrative* Problem Noted [...] 02/25/2014 morning - On fentanyl gtt per DIGITAL EXPERIENCE MANAGER Plan: - DIGITAL EXPERIENCE MANAGER team to round on patient and manage care Diabetic ketoacidosis withou t coma associated with type 1 diabetes mellitus 01/08/2014 02/04/2023 Overview: Type 1 diabetes with poor control, frequent DKA episodes --- Throughout the day she takes insulin to keep sugars 80-150 - Presented to [facility] on 01/08/2014 with sub-sternal chest pain [...] arise --- Follows with Dr. Garcia at [facility] Plan: - Continuous monitoring - F/u DIGITAL EXPERIENCE MANAGER recs GBS (group B Streptococcus c arrier), +RV culture @ 22 wks 11/11/2013 04/16/2014 Hypertension in , antepartum 09/19/2013 01/08/2014 DVT prophylaxis 12/25/2012 09/04/2013 Overview: IPCs DISPOSITION AND FOLLOW-UP 12/25/2012 Overview: Full code Retinal detachment 10/26/2012 3 documented as of this encounter (statuses as of 10/20/2023) [facility] of Past illness Narrative* Problem Noted [...] 02/25/2014 morning - On fentanyl gtt per DIGITAL EXPERIENCE MANAGER Plan: - DIGITAL EXPERIENCE MANAGER team to round on patient and manage care Diabetic ketoacidosis withou t coma associated with type 1 diabetes mellitus 01/08/2014 02/04/2023 Overview: Type 1 diabetes with poor control, frequent DKA episodes --- Throughout the day she takes insulin to keep sugars 80-150 - Presented to [facility] on 01/08/2014 with sub-sternal chest pain [...] arise --- Follows with Dr. Garcia at [facility] Plan: - Continuous monitoring - F/u DIGITAL EXPERIENCE MANAGER recs GBS (group B Streptococcus c arrier), +RV culture @ 22 wks 11/11/2013 04/16/2014 Hypertension in , antepartum 09/19/2013 01/08/2014 DVT prophylaxis 12/25/2012 09/04/2013 Overview: IPCs DISPOSITION AND FOLLOW-UP 12/25/2012 Overview: Full code Retinal detachment 10/26/2012 3 documented as of this encounter (statuses as of 10/27/2023) [facility] of Past illness Narrative* Problem Noted [...] 02/25/2014 morning - On fentanyl gtt per DIGITAL EXPERIENCE MANAGER Plan: - DIGITAL EXPERIENCE MANAGER team to round on patient and manage care Diabetic ketoacidosis withou t coma associated with type 1 diabetes mellitus 01/08/2014 02/04/2023 Overview: Type 1 diabetes with poor control, frequent DKA episodes --- Throughout the day she takes insulin to keep sugars 80-150 - Presented to [facility] on 01/08/2014 with sub-sternal chest pain [...] arise --- Follows with Dr. Garcia at [facility] Plan: - Continuous monitoring - F/u DIGITAL EXPERIENCE MANAGER recs GBS (group B Streptococcus c arrier), +RV culture @ 22 wks 11/11/2013 04/16/2014 Hypertension in , antepartum 09/19/2013 01/08/2014 DVT prophylaxis 12/25/2012 09/04/2013 Overview: IPCs DISPOSITION AND FOLLOW-UP 12/25/2012 Overview: Full code Retinal detachment 10/26/2012 3 documented as of this encounter (statuses as of 11/03/2023) [facility] of Past illness Narrative* Problem Noted [...] 02/25/2014 morning - On fentanyl gtt per DIGITAL EXPERIENCE MANAGER Plan: - DIGITAL EXPERIENCE MANAGER team to round on patient and manage care Diabetic ketoacidosis withou t coma associated with type 1 diabetes mellitus 01/08/2014 02/04/2023 Overview: Type 1 diabetes with poor control, frequent DKA episodes --- Throughout the day she takes insulin to keep sugars 80-150 - Presented to [facility] on 01/08/2014 with sub-sternal chest pain [...] arise --- Follows with Dr. Garcia at [facility] Plan: - Continuous monitoring - F/u DIGITAL EXPERIENCE MANAGER recs GBS (group B Streptococcus c arrier), +RV culture @ 22 wks 11/11/2013 04/16/2014 Hypertension in , antepartum 09/19/2013 01/08/2014 DVT prophylaxis 12/25/2012 09/04/2013 Overview: IPCs DISPOSITION AND FOLLOW-UP 12/25/2012 Overview: Full code Retinal detachment 10/26/2012 3 documented as of this encounter (statuses as of 11/10/2023) [facility] of Past illness Narrative* Problem Noted [...] 02/25/2014 morning - On fentanyl gtt per DIGITAL EXPERIENCE MANAGER Plan: - DIGITAL EXPERIENCE MANAGER team to round on patient and manage care Diabetic ketoacidosis withou t coma associated with type 1 diabetes mellitus 01/08/2014 02/04/2023 Overview: Type 1 diabetes with poor control, frequent DKA episodes --- Throughout the day she takes insulin to keep sugars 80-150 - Presented to [facility] on 01/08/2014 with sub-sternal chest pain [...] arise --- Follows with Dr. Garcia at [facility] Plan: - Continuous monitoring - F/u DIGITAL EXPERIENCE MANAGER recs GBS (group B Streptococcus c arrier), +RV culture @ 22 wks 11/11/2013 04/16/2014 Hypertension in , antepartum 09/19/2013 01/08/2014 DVT prophylaxis 12/25/2012 09/04/2013 Overview: IPCs DISPOSITION AND FOLLOW-UP 12/25/2012 Overview: Full code Retinal detachment 10/26/2012 3 documented as of this encounter (statuses as of 12/14/2023) [facility] of Past illness Narrative* Problem Noted [...] 02/25/2014 morning - On fentanyl gtt per DIGITAL EXPERIENCE MANAGER Plan: - DIGITAL EXPERIENCE MANAGER team to round on patient and manage care Diabetic ketoacidosis withou t coma associated with type 1 diabetes mellitus 01/08/2014 02/04/2023 Overview: Type 1 diabetes with poor control, frequent DKA episodes --- Throughout the day she takes insulin to keep sugars 80-150 - Presented to [facility] on 01/08/2014 with sub-sternal chest pain [...] arise --- Follows with Dr. Garcia at [facility] Plan: - Continuous monitoring - F/u DIGITAL EXPERIENCE MANAGER recs GBS (group B Streptococcus c arrier), +RV culture @ 22 wks 11/11/2013 04/16/2014 Hypertension in , antepartum 09/19/2013 01/08/2014 DVT prophylaxis 12/25/2012 09/04/2013 Overview: IPCs DISPOSITION AND FOLLOW-UP 12/25/2012 Overview: Full code Retinal detachment 10/26/2012 3 documented as of this encounter (statuses as of 12/15/2023) [facility] Cynthia Hutchison [facility] October 18, 2023 11:21am Note Date/Time October 18, 2023 11:21am [facility] Medical Records Department [address] [place] [address] Counseling Note - Pharmacy 10/18/23 1121 MR#: [id number] Acct: [id number] Name: KATHLEEN VILLA Rep #:[id number] : 1995 28 From: Cynthia Hutchison PCP: FUNMILAYO SMITH Status:ADM IN Y Location: ICU CVICU20 2-1 [place] Med Reconciliation Pharmacy Service has performed discharge medication reconciliation for this patient. The patient's discharge medication list was reviewed for discrepancies and discrepancies were resolved. Medications at Discharge Home Medications insulin lispro 100 unit/mL subcutaneous solution (Humalog U-100 Insulin) See Rx Instructions .Route .COMPLEX 04/27/23 pen needle, diabetic 29 gauge x 1/2 (Ultra-Thin II Insulin Pen [place]) #100 ea08/10/23 prochlorperazine maleate 10 mg tablet [...] [facility] [address] [place] [address] Instructions for Home/Discharge Instructions 04/29/23 1744 MR#: [id number] Acct: [id number] Name: KATHLEEN VILLA Rep #:[id number] : [...] System Medical Records Department [address] [place] [address] Emergency Department Summary 10/17/23 MR#: [id number] Acct: [id number] Name: KATHLEEN VILLA Rep #:[id number] : [...] gauge x 1/2 (Ultra-Thin II Insulin Pen [place]) #100 ea08/10/23 [Rx Last Taken Unknown] ibuprofen [...] Medical decision making narrative: Patient placed on corsetier. IV line initiated. Labwork obtained to evaluate [...] 88.4 H Lymph % (Auto) 7.8 L Mclennan % (Auto) 2.4 Eos % (Auto) 0.1 [...] Garces MD - Last Filed: 10/17/23 11:38> [facility] Narrative Medical decision making narrative: Patient placed on corsetier. IV line initiated. Labwork obtained to evaluate [...] 88.4 H Lymph % (Auto) 7.8 L Mclennan % (Auto) 2.4 Eos % (Auto) 0.1 [...] minutes, Including time spent:, Discussing w/Patient &/or Family/Survey Research Professor, Discussing w/Consultants, Arranging Admission or Transfer, Performing Direct Patient Care at Bedside and - (35 minutes) Discharge Plan Dx/Rx/DC Orders Clinical Impression: DKA (diabetic ketoacidosis), Tachycardia, Nausea & vomiting, Acute dehydration Disposition Disposition: [facility] What to do if you have Problems For any increased pain, shortness of breath, bleeding, nausea or vomiting, chest pain, or any unexpected problems, contact your Primary Care Provider. Call [facility] ([phone]) or report to the closest Emergency Room. Call 911 if necessary. 10/17/23 1138 <Electronically signed by Alexandro Garces MD> Cosigner Signature (if applicable): 10/17/23 1131 <Electronically signed by Jacqueline Alvarez RN> CC: FUNMILAYO SMITH ~ Signed [facility] Work Phone: Discharge summary Author [facility] October 18, 2023 10:54am Note Date/Time October 18, 2023 10:54am [facility] Medical Records Department [address] [place] [address] Instructions for Home/Discharge Instructions 10/18/23 1054 MR#: [id number] Acct: [id number] Name: KATHLEEN VILLA Rep #:[id number] : [...] Instructions / Restrictions: follow up with your online merchandiser and normalizer SIRI. Discharge Orders/Prescriptions Prescriptions: Continued insulin lispro [...] pen needle, diabetic [Ultra-Thin II Ins Pen [place]] 29 gauge x 1/2 needle See Rx [...] Hospital Work Phone: Discharge summary Author [facility] October 18, 2023 11:09am Note Date/Time October 18, 2023 10:58am [facility] Medical Records Department [address] [place] [address] Discharge Summary 10/18/23 1054 MR#: [id number] Acct: [id number] Name: KATHLEEN VILLA Rep #:[id number] : [...] was 6.7. * follows up with an online merchandiser in [facility] in [place]. * last A1C from 08/07/2023 was 7 [...] gauge x 1/2 (Ultra-Thin II Insulin Pen [place]) #100 ea08/10/23 prochlorperazine maleate 10 mg tablet [...] per patient, her last A1C with her online merchandiser was 6.7. She had however had recurrent [...] to follow up with her PCP and online merchandiser as well as normalizer o/a of gastroparesis. Patient seen and examined [...] % (Auto) 59.5, Lymph % (Auto) 32.5, Mclennan % (Auto) 6.0, Eos % (Auto) 1.0, [...] Instructions / Restrictions: follow up with your online merchandiser and normalizer SIRI. Discharge Orders/Prescriptions Prescriptions: Continued insulin lispro [...] pen needle, diabetic [Ultra-Thin II Ins Pen [place]] 29 gauge x 1/2 needle See Rx [...] Self Care Charges/Coding Visit Charges Inpatient E&M: 61767 Disch Hosp >30min 10/18/23 1109 <Electronically signed by Vita Jefferson MD> Cosigner Signature (if applicable): CC: Dr. Vita Jefferson MD; FUNMILAYO SMITH~ Signed [facility] Work Phone: Evaluation note* Diagnosis Type 1 diabetes mellitus with other specified complication (HCC)- Primary [facility] Diagnosis Obstruction of central line, initial encounter (HCC)- Primary [facility] Diagnosis Type 1 diabetes mellitus with other specified complication (HCC)- Primary [facility]* Diagnosis Menstrual irregularity- Primary Irregular menstrual cycle Screening for STD (sexually transmitted disease) Screening examination for venereal disease Chronic nausea Nausea alone [facility] Diagnosis 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) [facility] Diagnosis Chronic idiopathic constipation Unspecified constipation [facility] Diagnosis Gonorrhea- Primary Gonococcal infection (acute) of lower genitourinary tract [facility] Diagnosis Gonorrhea- Primary Gonococcal infection (acute) of lower genitourinary tract [facility] Gonorrhea- Primary Gonococcal infection (acute) of lower genitourinary tract Screen for sexually transmitted diseases Screening examination for venereal disease [facility] Diagnosis Type 1 diabetes mellitus with hyperglycemia (HCC)- Primary Type I (juvenile type) diabetes mellitus without mention of complication, not stated as uncontrolled Insulin pump status Abnormal results of thyroid function studies Nonspecific abnormal results of thyroid function study [facility] Diagnosis Type 1 diabetes mellitus with hyperglycemia, with long-term current use of insulin (HCC)- Primary Insulin pump status [facility] Diagnosis Type 1 diabetes mellitus with other specified complication (HCC)- Primary [facility] Diagnosis Lower abdominal pain- Primary Abdominal pain, other specified site [facility] Diagnosis Viral conjunctivitis- Primary Unspecified diseases of conjunctiva due to viruses documented in this encounter [facility] note* Diagnosis Gastroparesis due to DM (HCC)- Primary Type II or unspecified type diabetes mellitus with neurological manifestations, not stated as uncontrolled Aortic root aneurysm (HCC) Aortic aneurysm of unspecified site without mention of rupture Primary hypertension Unspecified essential hypertension Chronic nausea Nausea alone 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 ([facility]) Marfan syndrome Marfan's syndrome PTSD (post-traumatic stress disorder) Posttraumatic stress disorder Generalized abdominal pain Abdominal pain, generalized documented in this encounter [facility] note* Diagnosis Gastroparesis due to DM (HCC)- Primary Type II or unspecified type diabetes mellitus with neurological manifestations, not stated as uncontrolled Generalized abdominal pain Abdominal pain, generalized documented in this encounter [facility] note* Diagnosis Left flank pain- Primary Abdominal pain, unspecified site documented in this encounter [facility] note* Diagnosis Left flank pain- Primary Abdominal pain, unspecified site Dysuria documented in this encounter [facility] note* Diagnosis Type 1 diabetes mellitus with hyperglycemia, with long-term current use of insulin ([facility])- Primary Insulin pump status Screening for diabetic retinopathy Screening for other eye conditions documented in this encounter [facility] note* Diagnosis Nausea & vomiting- Primary Nausea with vomiting Hyperglycemia Other abnormal glucose Ketonuria Acetonuria Nausea and vomiting, unspecified vomiting type Abdominal pain, unspecified abdominal location Chest pain, unspecified type Bradycardia Other specified cardiac dysrhythmias documented in this encounter [facility] noteNo assessment information availableWMetro[facility] Work Phone: Evaluation note* Diagnosis Onset Date Resolution Status Intractable vomiting acute [facility] Work Phone: Evaluation note* Diagnosis Psoriasis vulgaris- Primary Other psoriasis documented in this encounter [facility] note* Diagnosis Type 1 diabetes mellitus with hyperglycemia, with long-term current use of insulin ([facility])- Primary Insulin pump status documented in this encounter [facility] note* Diagnosis Onset Date Resolution Status Diabetic [...] Multiple benign nevi documented in this encounter [facility] note* Diagnosis Onset Date Resolution Status DKA (diabetic ketoacidoses) resolved Intractable nausea and vomiting resolved Nausea & vomiting resolved Acute dehydration resolved DKA (diabetic ketoacidosis) resolved Nausea & vomiting resolved Tachycardia resolved [facility] Work Phone: Evaluation note* Diagnosis Type 1 diabetes mellitus with hyperglycemia, with long-term current use of insulin ([facility])- Primary Insulin pump status documented in this encounter [facility] note* Diagnosis Type 1 diabetes mellitus with hyperglycemia, with long-term current use of insulin ([facility]) Insulin pump status documented in this encounter [facility] note* Diagnosis Type 1 diabetes mellitus with hyperglycemia, with long-term current use of insulin ([facility])- Primary Insulin pump status documented in this encounter [facility] note* Diagnosis Type 1 diabetes mellitus with hyperglycemia, with long-term current use of insulin ([facility]) documented in this encounter [facility] note* Diagnosis Obstructive sleep apnea- Primary Obstructive sleep apnea (adult) (pediatric) Dyspnea Other dyspnea and respiratory abnormality Type 1 diabetes mellitus with hyperglycemia, with long-term current use of insulin ([facility]) Insulin pump status documented in this encounter [facility] note* Diagnosis Obstructive sleep apnea- Primary Obstructive sleep apnea (adult) (pediatric) Dyspnea Other dyspnea and respiratory abnormality Diabetes mellitus type 1, controlled, without complications (HCC)- Primary Type I (juvenile type) diabetes mellitus without mention of complication, not stated as uncontrolled documented in this encounter [facility] note* Diagnosis Obstructive sleep apnea- [...] for venereal disease [facility]* Diagnosis Obstructive sleep apnea- Primary Obstructive sleep apnea (adult) (pediatric) Dyspnea Other dyspnea and respiratory abnormality Type 1 diabetes mellitus with hyperglycemia, with long-term current use of insulin (HCC)- Primary Insulin pump status documented in this [facility]* Diagnosis Obstructive sleep apnea- Primary Obstructive sleep apnea (adult) (pediatric) Dyspnea Other dyspnea and respiratory abnormality Type 1 diabetes mellitus with hyperglycemia, with long-term current use of insulin (HCC) Insulin pump status documented in this [facility]* Diagnosis Psoriasis vulgaris- Primary Other psoriasis Folliculitis Other specified disease of hair and hair follicles Encounter for long-term current use of high risk medication Screening for viral disease Special screening examination for unspecified viral disease documented in this encounter [facility] note* Diagnosis Obstructive sleep apnea- Primary Obstructive sleep apnea (adult) (pediatric) Dyspnea Other dyspnea and respiratory abnormality Chronic idiopathic constipation- Primary Unspecified constipation Gastroparesis documented in this encounter [facility] note* Diagnosis Obstructive sleep apnea- Primary Obstructive sleep apnea (adult) (pediatric) Dyspnea Other dyspnea and respiratory abnormality Chronic idiopathic constipation- Primary Unspecified constipation Abdominal pain, suprapubic Abdominal pain, other specified site Chronic idiopathic constipation Unspecified constipation documented in this encounter [facility] note* Diagnosis Obstructive sleep apnea- Primary Obstructive sleep apnea (adult) (pediatric) Dyspnea Other dyspnea and respiratory abnormality Chronic idiopathic constipation Unspecified constipation documented in this encounter [facility] note* Diagnosis Psoriasis vulgaris- Primary Other psoriasis [...] of other medications documented in this encounter [facility] course Narrative No data available for this section [facility] Discharge instructions No data available for this section [facility] Discharge instructions* Attachments The following attachments cannot be sent through Care Everywhere. * Gastroparesis ([place]) [facility] Additional [...] note No data available for this section [facility] Reason for visit Narrative* Diagnostic Procedure Only (Routine) - Closed Specialty Diagnoses / Procedures Referred By Contac t Referred To Contact XR IMAGING Diagnoses Chronic idiopathic constipation Procedures XR ABDOMEN 1V SUPINE RADIOLOGIC EXAM ABDOMEN 1 VIEW Leticia Hylton DO [address] [place] [address] Phone: tel: fax: [place] [phone] Referral ID Status Reason Start Date Expiration Date V isits Requested Visits Authorized [id number] Closed Auto-Generate d Referral 11/11/2024 12/11/2025 1 1 [facility] Summary Purpose Family History No Family History Records FoundNo Family History Records FoundNo Family History Records FoundNo Family History Records FoundNo Family History Records FoundNo Family History Records FoundNo Family History Records FoundNo Family History Records FoundNo Family History Records FoundNo Family History Records Found Advance Directives No Advanced Directives Records FoundDocuments on File Type Date Recorded Patient Salt Cutter Expl 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 Advance Directive(s) Advance Directive(s) 01/02/2020 3:16 PM Advance Directive(s) 01/20/2016 9:39 AM Advance Directive(s) 11/13/2015 8:50 AM Advance Directive(s) 02/27/2014 5:42 PM Advance Directive(s) 01/09/2014 8:55 PM Advance Directive(s) 12/25/2012 9:16 PM Documents on File Type Date Recorded Patient Salt Cutter Expl 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 Advance Directive(s) 02/27/2014 5:42 PM Advance Directive(s) 01/09/2014 8:55 PM Advance Directive(s) 12/25/2012 9:16 PM Documents on File Type Date Recorded Patient Salt Cutter Expl anation Advance Directive(s) 02/27/2014 5:42 PM [...] Will No April 26 9:30pm Power of Environmental Protection Specialist No April 26 2 023 9:30pm Advance Directive Response Recorded Date/ Time Living Will No April 27 9:26am Power of Environmental Protection Specialist No April 27 2 023 9:26am Advance Directive Response Recorded Date/ Time Living Will No April 27 3 5:02pm Power of Environmental Protection Specialist No April 27, 2 023 5:02pm Advance Directive Response Recorded Date/ Time Living Will No May 03 2 023 4:27am Power of Environmental Protection Specialist No May 03, 2023 4:27am Latest Code [...] Will No June 25 9:47am Power of Environmental Protection Specialist No June 25, 2023 9:47am Advance Directive Response Recorded Date/ Time Living Will No June 25 11:14pm Power of Environmental Protection Specialist No June 25, 2023 11:14pm Advance Directive Response Recorded Date/ Time Living Will No August 06, 2 023 8:56am Power of Environmental Protection Specialist No August 06, 2023 8:56am Advance Directive Response Recorded Date/ Time Living Will No August 06, 2 023 9:39pm Power of Environmental Protection Specialist No August 06, 2023 9:39pm Advance Directive Response Recorded Date/ Time Living Will No August 22, 2 023 2:48am Power of Environmental Protection Specialist No August 22, 2023 2:48am Advance Directive Response Recorded Date/ Time Living Will No September 24 5:58pm Power of Environmental Protection Specialist No September 24, 2023 5:58pm Advance Directive Response Recorded Date/ Time Living Will No October 17, 2 024 10:02am Power of Environmental Protection Specialist No October 17, 2023 10:02am Advance Directive Response Recorded Date/ Time Living Will No October 17, 2 024 12:47pm Power of Environmental Protection Specialist No October 17, 2023 12:47pm Advance Directive Response Recorded Date/ Time Living Will No October 25, 2 024 4:43pm Power of Environmental Protection Specialist No October 25, 2023 4:43pm Date Activated Date Inactivated Comments 02/01/2023 2:02 AM 02/04/2023 6:35 PM Question Answer Comments Full Code Order Discussed With: Patient Date Activated Date Inactivated Comments 11/23/2022 11:30 PM 11/26/2022 7:43 PM Question Answer Comments Full Code Order Discussed With: Patient Advance Directive Response Recorded Date/ Time Living Will No October 25, 2 024 5:43pm Power of Environmental Protection Specialist No October 25, 2023 5:43pm Date Activated Date Inactivated Comments 02/01/2023 2:02 AM 02/04/2023 6:35 PM Question Answer Comments Full Code Order Discussed With: Patient Date Activated Date Inactivated Comments 11/23/2022 11:30 PM 11/26/2022 7:43 PM Question Answer Comments Full Code Order Discussed With: Patient Advance Directive Response Recorded Date/ Time Living Will No August 07, 023 1:35am Power of Environmental Protection Specialist No August 07, 2023 1:35am Health Concerns [...] DSME/MNT MEDICAL NUTRITION ASSMT&IVNTJ INDIV EACH 15 [place] MEDICAL NUTRITION ASSMT&IVNTJ INDIV EACH 15 [place] MEDICAL NUTRITION ASSMT&IVNTJ INDIV EACH 15 [place] MEDICAL NUTRITION ASSMT&IVNTJ INDIV EACH 15 [place] Jessica Guerrero, ESTEFANIA.[facility] [address] [place] [address] Referral ID Status Reason Start Date Expiration Date Visits Requested Visits Authorized [id number] Authorized PCP Requested Referral 12/13/2023 12/12/2024 1 1 Specialty Diagnoses / Procedures Referred By Ajay t Referred To Contact Diagnoses Psoriasis vulgaris Leesa Huddleston PA-C [address] [facility] [address] [place] [address] Referral ID Status Reason Start Date Expiration Date V isits Requested Visits Authorized [id number] Authorized 04/14/2021 05/13/2024 1 1 Specialty Diagnoses / Procedures Referred By Ajay t Referred To Contact Ophthalmology Diagnoses Screening for diabetic retinopathy Procedures CONSULT TO OPHTHALMOLOGY OFFICE/OUTPATIENT NEW HIGH MDM 60-74 MINUTES Autumn Valadez, OPERATIONS REPRESENTATIVE.GRAIN INSPECTOR [address] [place] [address] Referral ID Status Reason Start Date Expiration Date Visits Requested Visits Authorized [id number] Authorized PCP Requested Referral 01/25/2023 01/25/2024 1 1 Specialty Diagnoses / Procedures Referred By Contac t Referred To Contact Gastroenterology Diagnoses Gastroparesis due to DM (HCC) Generalized abdominal pain Procedures CONSULT TO GASTROENTEROLOGY OFFICE/OUTPATIENT [facility] 60-74 MINUTES Vivi Smith MD [address] [place] [address] [place] [address] [facility] [address] [place] [address] Referral ID Status Reason Start Date Expiration Date Visits Requested Visits Authorized [id number] Authorized PCP Requested Referral 12/09/2022 12/09/2023 1 1 Specialty Diagnoses / Procedures Referred By Contac t Referred To Contact Pain Management / PAIN MANAGEMENT Diagnoses Gastroparesis due to DM (HCC) Generalized abdominal pain Procedures CONSULT TO PAIN MGT OFFICE/OUTPATIENT [facility] 60-74 MINUTES Vivi Smith MD [address] [place] [address] Elisabet Guzmán DO [address] [facility], [place] [address] Referral ID Status Reason Start Date Expiration Date Visits Requested Visits Authorized [id number] Authorized PCP Requested Referral 12/09/2022 12/09/2023 1 1 Specialty Diagnoses / Procedures Referred By Contac t Referred To Contact Gynecology Diagnoses Menstrual irregularity Procedures CONSULT TO GYNECOLOGY OFFICE/OUTPATIENT [facility] 60-74 MINUTES Dashawn Cain, OPERATIONS REPRESENTATIVE.GRAIN INSPECTOR [address] [place] [address] Referral ID Status Reason Start Date Expiration Date Visits Requested Visits Authorized [id number] Authorized PCP Requested Referral Auto-Generate d Referral [...] section and content) DATE CREATED AUTHOR 02/21/[address] [facility] DATE CREATED AUTHOR AUTHOR'S ORGANIZ ATION 12/28/2021 [facility] DATE CREATED AUTHOR AUTHOR'S ORGANIZ ATION 02/12/2022 [facility] DATE CREATED AUTHOR AUTHOR'S ORGANIZ ATION 03/04/2023 [facility] DATE CREATED AUTHOR AUTHOR'S ORGANIZ ATION 04/20/2023 [facility] DATE CREATED AUTHOR AUTHOR'S ORGANIZ ATION 12/17/2023 [facility] DATE CREATED AUTHOR AUTHOR'S ORGANIZ ATION 11/13/2024 [facility] DATE CREATED AUTHOR AUTHOR'S ORGANIZ ATION 11/15/2024 [facility] DATE CREATED AUTHOR AUTHOR'S ORGANIZ ATION 01/28/2025 [facility] DATE CREATED AUTHOR AUTHOR'S ORGANIZ ATION 03/16/2025 [facility] Source Comments (unrecognize d section and content) In the event this informatio n is protected by the Federal Confidentiality of Alcohol and Drug Abuse Patient Records regulations: The Federal rules restrict any use of the information to criminally investigate or prosecute any alcohol or drug abuse patient.[facility] the event this information is protected by the Federal Confidentiality of Alcohol and Drug Abuse Patient Records regulations: The Federal rules restrict any use of the information to criminally investigate or prosecute any alcohol or drug abuse patient.[facility] the event this information is protected by the Federal Confidentiality of Alcohol and Drug Abuse Patient Records regulations: The Federal rules restrict any use of the information to criminally investigate or prosecute any alcohol or drug abuse patient.[facility] the event this information is protected by the Federal Confidentiality of Alcohol and Drug Abuse Patient Records regulations: The Federal rules restrict any use of the information to criminally investigate or prosecute any alcohol or drug abuse patient.[facility] the event this information is protected by the Federal Confidentiality of Alcohol and Drug Abuse Patient Records regulations: The Federal rules restrict any use of the information to criminally investigate or prosecute any alcohol or drug abuse patient.[facility] the event this information is protected by the Federal Confidentiality of Alcohol and Drug Abuse Patient Records regulations: The Federal rules restrict any use of the information to criminally investigate or prosecute any alcohol or drug abuse patient.[facility] System[facility] the event this information is protected by the Federal Confidentiality of Alcohol and Drug Abuse Patient Records regulations: The Federal rules restrict any use of the information to criminally investigate or prosecute any alcohol or drug abuse patient.[facility] System[facility] the event this information is protected by the Federal Confidentiality of Alcohol and Drug Abuse Patient Records regulations: The Federal rules restrict any use of the information to criminally investigate or prosecute any alcohol or drug abuse patient.[facility] System[facility] the event this information is protected by the Federal Confidentiality of Alcohol and Drug Abuse Patient Records regulations: The Federal rules restrict any use of the information to criminally investigate or prosecute any alcohol or drug abuse patient.[facility] System[facility] the event this information is protected by the Federal Confidentiality of Alcohol and Drug Abuse Patient Records regulations: The Federal rules restrict any use of the information to criminally investigate or prosecute any alcohol or drug abuse patient.[facility] System[facility] the event this information is protected by the Federal Confidentiality of Alcohol and Drug Abuse Patient Records regulations: The Federal rules restrict any use of the information to criminally investigate or prosecute any alcohol or drug abuse patient.[facility] System[facility] the event this information is protected by the Federal Confidentiality of Alcohol and Drug Abuse Patient Records regulations: The Federal rules restrict any use of the information to criminally investigate or prosecute any alcohol or drug abuse patient.[facility] System[facility] the event this information is protected by the Federal Confidentiality of Alcohol and Drug Abuse Patient Records regulations: The Federal rules restrict any use of the information to criminally investigate or prosecute any alcohol or drug abuse patient.[facility] System[facility] the event this information is protected by the Federal Confidentiality of Alcohol and Drug Abuse Patient Records regulations: The Federal rules restrict any use of the information to criminally investigate or prosecute any alcohol or drug abuse patient.[facility] System[facility] the event this information is protected by the Federal Confidentiality of Alcohol and Drug Abuse Patient Records regulations: The Federal rules restrict any use of the information to criminally investigate or prosecute any alcohol or drug abuse patient.[facility] System[facility] the event this information is protected by the Federal Confidentiality of Alcohol and Drug Abuse Patient Records regulations: The Federal rules restrict any use of the information to criminally investigate or prosecute any alcohol or drug abuse patient.[facility] System[facility] the event this information is protected by the Federal Confidentiality of Alcohol and Drug Abuse Patient Records regulations: The Federal rules restrict any use of the information to criminally investigate or prosecute any alcohol or drug abuse patient.[facility] SystemIn the event this information is protected by the Federal Confidentiality of Alcohol and Drug Abuse Patient Records regulations: The Federal rules restrict any use of the information to criminally investigate or prosecute any alcohol or drug abuse patient.[facility] SystemIn the event this information is protected by the Federal Confidentiality of Alcohol and Drug Abuse Patient Records regulations: The Federal rules restrict any use of the information to criminally investigate or prosecute any alcohol or drug abuse patient.[facility] SystemIn the event this information is protected by the Federal Confidentiality of Alcohol and Drug Abuse Patient Records regulations: The Federal rules restrict any use of the information to criminally investigate or prosecute any alcohol or drug abuse patient.[facility] SystemIn the event this information is protected by the Federal Confidentiality of Alcohol and Drug Abuse Patient Records regulations: The Federal rules restrict any use of the information to criminally investigate or prosecute any alcohol or drug abuse patient.[facility] SystemIn the event this information is protected by the Federal Confidentiality of Alcohol and Drug Abuse Patient Records regulations: The Federal rules restrict any use of the information to criminally investigate or prosecute any alcohol or drug abuse patient.[facility] SystemIn the event this information is protected by the Federal Confidentiality of Alcohol and Drug Abuse Patient Records regulations: The Federal rules restrict any use of the information to criminally investigate or prosecute any alcohol or drug abuse patient.[facility] SystemIn the event this information is protected by the Federal Confidentiality of Alcohol and Drug Abuse Patient Records regulations: The Federal rules restrict any use of the information to criminally investigate or prosecute any alcohol or drug abuse patient.[facility] SystemIn the event this information is protected by the Federal Confidentiality of Alcohol and Drug Abuse Patient Records regulations: The Federal rules restrict any use of the information to criminally investigate or prosecute any alcohol or drug abuse patient.[facility] SystemIn the event this information is protected by the Federal Confidentiality of Alcohol and Drug Abuse Patient Records regulations: The Federal rules restrict any use of the information to criminally investigate or prosecute any alcohol or drug abuse patient.[facility] SystemIn the event this information is protected by the Federal Confidentiality of Alcohol and Drug Abuse Patient Records regulations: The Federal rules restrict any use of the information to criminally investigate or prosecute any alcohol or drug abuse patient.[facility] SystemIn the event this information is protected by the Federal Confidentiality of Alcohol and Drug Abuse Patient Records regulations: The Federal rules restrict any use of the information to criminally investigate or prosecute any alcohol or drug abuse patient.[facility] SystemIn the event this information is protected by the Federal Confidentiality of Alcohol and Drug Abuse Patient Records regulations: The Federal rules restrict any use of the information to criminally investigate or prosecute any alcohol or drug abuse patient.[facility] SystemIn the event this information is protected by the Federal Confidentiality of Alcohol and Drug Abuse Patient Records regulations: The Federal rules restrict any use of the information to criminally investigate or prosecute any alcohol or drug abuse patient.[facility] SystemIn the event this information is protected by the Federal Confidentiality of Alcohol and Drug Abuse Patient Records regulations: The Federal rules restrict any use of the information to criminally investigate or prosecute any alcohol or drug abuse patient.[facility] SystemIn the event this information is protected by the Federal Confidentiality of Alcohol and Drug Abuse Patient Records regulations: The Federal rules restrict any use of the information to criminally investigate or prosecute any alcohol or drug abuse patient.[facility] SystemIn the event this information is protected by the Federal Confidentiality of Alcohol and Drug Abuse Patient Records regulations: The Federal rules restrict any use of the information to criminally investigate or prosecute any alcohol or drug abuse patient.[facility] SystemIn the event this information is protected by the Federal Confidentiality of Alcohol and Drug Abuse Patient Records regulations: The Federal rules restrict any use of the information to criminally investigate or prosecute any alcohol or drug abuse patient.[facility] SystemIn the event this information is protected by the Federal Confidentiality of Alcohol and Drug Abuse Patient Records regulations: The Federal rules restrict any use of the information to criminally investigate or prosecute any alcohol or drug abuse patient.[facility] SystemIn the event this information is protected by the Federal Confidentiality of Alcohol and Drug Abuse Patient Records regulations: The Federal rules restrict any use of the information to criminally investigate or prosecute any alcohol or drug abuse patient.[facility] SystemIn the event this information is protected by the Federal Confidentiality of Alcohol and Drug Abuse Patient Records regulations: The Federal rules restrict any use of the information to criminally investigate or prosecute any alcohol or drug abuse patient.[facility] SystemIn the event this information is protected by the Federal Confidentiality of Alcohol and Drug Abuse Patient Records regulations: The Federal rules restrict any use of the information to criminally investigate or prosecute any alcohol or drug abuse patient.[facility] SystemIn the event this information is protected by the Federal Confidentiality of Alcohol and Drug Abuse Patient Records regulations: The Federal rules restrict any use of the information to criminally investigate or prosecute any alcohol or drug abuse patient.[facility] SystemIn the event this information is protected by the Federal Confidentiality of Alcohol and Drug Abuse Patient Records regulations: The Federal rules restrict any use of the information to criminally investigate or prosecute any alcohol or drug abuse patient.[facility] SystemIn the event this information is protected by the Federal Confidentiality of Alcohol and Drug Abuse Patient Records regulations: The Federal rules restrict any use of the information to criminally investigate or prosecute any alcohol or drug abuse patient.[facility] SystemIn the event this information is protected by the Federal Confidentiality of Alcohol and Drug Abuse Patient Records regulations: The Federal rules restrict any use of the information to criminally investigate or prosecute any alcohol or drug abuse patient.[facility] SystemIn the event this information is protected by the Federal Confidentiality of Alcohol and Drug Abuse Patient Records regulations: The Federal rules restrict any use of the information to criminally investigate or prosecute any alcohol or drug abuse patient.[facility] SystemIn the event this information is protected by the Federal Confidentiality of Alcohol and Drug Abuse Patient Records regulations: The Federal rules restrict any use of the information to criminally investigate or prosecute any alcohol or drug abuse patient.[facility] SystemIn the event this information is protected by the Federal Confidentiality of Alcohol and Drug Abuse Patient Records regulations: The Federal rules restrict any use of the information to criminally investigate or prosecute any alcohol or drug abuse patient.[facility] SystemIn the event this information is protected by the Federal Confidentiality of Alcohol and Drug Abuse Patient Records regulations: The Federal rules restrict any use of the information to criminally investigate or prosecute any alcohol or drug abuse patient.[facility] SystemIn the event this information is protected by the Federal Confidentiality of Alcohol and Drug Abuse Patient Records regulations: The Federal rules restrict any use of the information to criminally investigate or prosecute any alcohol or drug abuse patient.[facility] SystemIn the event this information is protected by the Federal Confidentiality of Alcohol and Drug Abuse Patient Records regulations: The Federal rules restrict any use of the information to criminally investigate or prosecute any alcohol or drug abuse patient.[facility] SystemIn the event this information is protected by the Federal Confidentiality of Alcohol and Drug Abuse Patient Records regulations: The Federal rules restrict any use of the information to criminally investigate or prosecute any alcohol or drug abuse patient.[facility] SystemIn the event this information is protected by the Federal Confidentiality of Alcohol and Drug Abuse Patient Records regulations: The Federal rules restrict any use of the information to criminally investigate or prosecute any alcohol or drug abuse patient.[facility] SystemIn the event this information is protected by the Federal Confidentiality of Alcohol and Drug Abuse Patient Records regulations: The Federal rules restrict any use of the information to criminally investigate or prosecute any alcohol or drug abuse patient.[facility] SystemIn the event this information is protected by the Federal Confidentiality of Alcohol and Drug Abuse Patient Records regulations: The Federal rules restrict any use of the information to criminally investigate or prosecute any alcohol or drug abuse patient.[facility] SystemIn the event this information is protected by the Federal Confidentiality of Alcohol and Drug Abuse Patient Records regulations: The Federal rules restrict any use of the information to criminally investigate or prosecute any alcohol or drug abuse patient.[facility] SystemIn the event this information is protected by the Federal Confidentiality of Alcohol and Drug Abuse Patient Records regulations: The Federal rules restrict any use of the information to criminally investigate or prosecute any alcohol or drug abuse patient.[facility] SystemIn the event this information is protected by the Federal Confidentiality of Alcohol and Drug Abuse Patient Records regulations: The Federal rules restrict any use of the information to criminally investigate or prosecute any alcohol or drug abuse patient.[facility] SystemIn the event this information is protected by the Federal Confidentiality of Alcohol and Drug Abuse Patient Records regulations: The Federal rules restrict any use of the information to criminally investigate or prosecute any alcohol or drug abuse patient.[facility] SystemIn the event this information is protected by the Federal Confidentiality of Alcohol and Drug Abuse Patient Records regulations: The Federal rules restrict any use of the information to criminally investigate or prosecute any alcohol or drug abuse patient.[facility] SystemIn the event this information is protected by the Federal Confidentiality of Alcohol and Drug Abuse Patient Records regulations: The Federal rules restrict any use of the information to criminally investigate or prosecute any alcohol or drug abuse patient.[facility] SystemIn the event this information is protected by the Federal Confidentiality of Alcohol and Drug Abuse Patient Records regulations: The Federal rules restrict any use of the information to criminally investigate or prosecute any alcohol or drug abuse patient.[facility] SystemIn the event this information is protected by the Federal Confidentiality of Alcohol and Drug Abuse Patient Records regulations: The Federal rules restrict any use of the information to criminally investigate or prosecute any alcohol or drug abuse patient.[facility] SystemIn the event this information is protected by the Federal Confidentiality of Alcohol and Drug Abuse Patient Records regulations: The Federal rules restrict any use of the information to criminally investigate or prosecute any alcohol or drug abuse patient.[facility] SystemIn the event this information is protected by the Federal Confidentiality of Alcohol and Drug Abuse Patient Records regulations: The Federal rules restrict any use of the information to criminally investigate or prosecute any alcohol or drug abuse patient.[facility] SystemIn the event this information is protected by the Federal Confidentiality of Alcohol and Drug Abuse Patient Records regulations: The Federal rules restrict any use of the information to criminally investigate or prosecute any alcohol or drug abuse patient.[facility] SystemIn the event this information is protected by the Federal Confidentiality of Alcohol and Drug Abuse Patient Records regulations: The Federal rules restrict any use of the information to criminally investigate or prosecute any alcohol or drug abuse patient.[facility] SystemIn the event this information is protected by the Federal Confidentiality of Alcohol and Drug Abuse Patient Records regulations: The Federal rules restrict any use of the information to criminally investigate or prosecute any alcohol or drug abuse patient.[facility] SystemIn the event this information is protected by the Federal Confidentiality of Alcohol and Drug Abuse Patient Records regulations: The Federal rules restrict any use of the information to criminally investigate or prosecute any alcohol or drug abuse patient.[facility] SystemIn the event this information is protected by the Federal Confidentiality of Alcohol and Drug Abuse Patient Records regulations: The Federal rules restrict any use of the information to criminally investigate or prosecute any alcohol or drug abuse patient.[facility] SystemIn the event this information is protected by the Federal Confidentiality of Alcohol and Drug Abuse Patient Records regulations: The Federal rules restrict any use of the information to criminally investigate or prosecute any alcohol or drug abuse patient.[facility] SystemIn the event this information is protected by the Federal Confidentiality of Alcohol and Drug Abuse Patient Records regulations: The Federal rules restrict any use of the information to criminally investigate or prosecute any alcohol or drug abuse patient.[facility] SystemIn the event this information is protected by the Federal Confidentiality of Alcohol and Drug Abuse Patient Records regulations: The Federal rules restrict any use of the information to criminally investigate or prosecute any alcohol or drug abuse patient.[facility] SystemIn the event this information is protected by the Federal Confidentiality of Alcohol and Drug Abuse Patient Records regulations: The Federal rules restrict any use of the information to criminally investigate or prosecute any alcohol or drug abuse patient.[facility] SystemIn the event this information is protected by the Federal Confidentiality of Alcohol and Drug Abuse Patient Records regulations: The Federal rules restrict any use of the information to criminally investigate or prosecute any alcohol or drug abuse patient.[facility] SystemIn the event this information is protected by the Federal Confidentiality of Alcohol and Drug Abuse Patient Records regulations: The Federal rules restrict any use of the information to criminally investigate or prosecute any alcohol or drug abuse patient.[facility] SystemIn the event this information is protected by the Federal Confidentiality of Alcohol and Drug Abuse Patient Records regulations: The Federal rules restrict any use of the information to criminally investigate or prosecute any alcohol or drug abuse patient.[facility] SystemIn the event this information is protected by the Federal Confidentiality of Alcohol and Drug Abuse Patient Records regulations: The Federal rules restrict any use of the information to criminally investigate or prosecute any alcohol or drug abuse patient.[facility] SystemIn the event this information is protected by the Federal Confidentiality of Alcohol and Drug Abuse Patient Records regulations: The Federal rules restrict any use of the information to criminally investigate or prosecute any alcohol or drug abuse patient.[facility] SystemIn the event this information is protected by the Federal Confidentiality of Alcohol and Drug Abuse Patient Records regulations: The Federal rules restrict any use of the information to criminally investigate or prosecute any alcohol or drug abuse patient.[facility] SystemIn the event this information is protected by the Federal Confidentiality of Alcohol and Drug Abuse Patient Records regulations: The Federal rules restrict any use of the information to criminally investigate or prosecute any alcohol or drug abuse patient.[facility] SystemIn the event this information is protected by the Federal Confidentiality of Alcohol and Drug Abuse Patient Records regulations: The Federal rules restrict any use of the information to criminally investigate or prosecute any alcohol or drug abuse patient.[facility] SystemIn the event this information is protected by the Federal Confidentiality of Alcohol and Drug Abuse Patient Records regulations: The Federal rules restrict any use of the information to criminally investigate or prosecute any alcohol or drug abuse patient.[facility] Care Teams (unrecognized sec tion and content) [...] Status: Active Member Role Status Dates FUNMILAYO, [facility] Primary Care Provider Active Dr. Alexandro Garces [...] Attending Provider, Emergency P rovider Active FUNMILAYO, [facility] Primary Care Provider Active Team Status: Inactive Member Role Status Dates [facility]MIL[facility]O, [facility] Primary Care Provider Active Dr. Rm Chirinos MD Attending Provider, Emergency Provi benjie Active Team Status: Inactive Member Role Status Dates FUNMILAYO, [facility] Primary Care Provider Active Dr. Edwin Scales MD Attending Provider, Emergency Provider Active Team Status: Inactive Member Role Status Dates FUNMILAYO, [facility] Primary Care Provider Active Dr. Olvin Ibarra [...] Status: Inactive Member Role Status Dates FUNMILAYO, [facility] Primary Care Provider Active Dr. Alexandro Garces MD Emergency Provider Active Dr. Vita Jefferson MD Admit Provider, Attending Prov ider Active Team Status: Active Member Role [facility] Active Team Status: Inactive Member Role Status Dates No Primary Care Physician Primary Care Provider Active Dr. Siddharth Herrera MD Attending Provider, Emergency Pr ovider Active Team Status: Inactive Member Role Status Dates [facility]O [facility] Primary Care Provider Active Dr. Rm Chirinos MD Emergency Provider Active Team Status: Inactive Member Role Status Dates FUNMILAYO, [facility] Primary Care Provider Active Dr. Edwin Scales [...] Care Physician Primary Care Provider Active Dr. iLn Johansen MD Emergency Provider Active Dr. David [...] Dr. Ileana Lobo MD Attending Provider Active Special Events Coordinator Relationship Specialty Start Date End Date Alfredo Mccullough [address] [place] [address] PCP - General Family Practice 12/31/19 Latosha Johnson LSW Painting Worker 12/10/14 Vamsi Cohen MD Primary Staff Physician Cardiology 11/13/18 Special Events Coordinator Relationship Specialty Start Date End Date Jamel, [facility]. [address] [place] PCP - General Family Practice 12/31/19 Latosha Johnson [employer] Painting Worker 12/10/14 Vamsi Cohen MD Primary Staff Physician Cardiology 11/13/18 Special Events Coordinator Relationship Specialty Start Date End Date Jamel, [facility]. [address] [place] PCP - General Family Practice 12/31/19 Latosha Johnson [employer] Painting Worker 12/10/14 Vamsi Cohen MD Primary Staff Physician Cardiology 11/13/18 Special Events Coordinator Relationship Specialty Start Date End Date Jamel, [facility]. [address] [place], [place] PCP - General Family Practice 12/31/19 Latosha Johnson [employer] Painting Worker 12/10/14 Vamsi Cohen MD Primary Staff Physician Cardiology 11/13/18 Special Events Coordinator Relationship Specialty Start Date End Date [facility]. [address] [place] PCP - General Family Practice 12/31/19 Latosha Johnson, [employer] Painting Worker 12/10/14 Vamsi Cohen MD Primary Staff Physician Cardiology 11/13/18 Special Events Coordinator Relationship Specialty Start Date End Date Paul, OPERATIONS REPRESENTATIVE.GRAIN INSPECTOR [address] [facility], [place] PCP - General Family Practice 03/08/22 Latosha Johnson, [facility] Painting Worker 12/10/14 Vamsi Cohen MD Primary Staff Physician Cardiology 11/13/18 Special Events Coordinator Relationship Specialty Start Date End Date Paul, OPERATIONS REPRESENTATIVE.GRAIN INSPECTOR [address] [facility], [place] PCP - General Family Practice 03/08/22 JohnsonLatosha khan, [facility] Painting Worker 12/10/14 Vamsi Cohen MD Primary Staff Physician Cardiology 11/13/18 Special Events Coordinator Relationship Specialty Start Date End Date Paul, OPERATIONS REPRESENTATIVE.GRAIN INSPECTOR [address] [facility], [place] PCP - General Family Practice 03/08/22 Latosha Johnson, [facility] Painting Worker 12/10/14 Vamsi Cohen MD Primary Staff Physician Cardiology 11/13/18 Special Events Coordinator Relationship Specialty Start Date End Date Paul, OPERATIONS REPRESENTATIVE.GRAIN INSPECTOR [address] [facility], [place] PCP - General Family Practice 03/08/22 Latosha Johnson, [facility] Painting Worker 12/10/14 Vamsi Cohen MD Primary Staff Physician Cardiology 11/13/18 Special Events Coordinator Relationship Specialty Start Date End Date Dashawn, OPERATIONS REPRESENTATIVE.GRAIN INSPECTOR [address] [facility], [place] PCP - General Family Practice 03/08/22 Latosha Johnosn LSW Painting Worker 12/10/14 Vamsi Cohen MD Primary Staff Physician Cardiology 11/13/18 Special Events Coordinator Relationship Specialty Start Date End Date eliseoPaul, OPERATIONS REPRESENTATIVE.GRAIN INSPECTOR [address] [place], [place] PCP - General Family Practice 03/08/22 Latosha Johnson LSW Painting Worker 12/10/14 Vamsi Cohen MD Primary Staff Physician Cardiology 11/13/18 Special Events Coordinator Relationship Specialty Start Date End Date eliseoPaul, OPERATIONS REPRESENTATIVE.GRAIN INSPECTOR [address] [place], [place] PCP - General Family Practice 03/08/22 Latosha Johnson [employer] Painting Worker 12/10/14 Vamsi Cohen MD Primary Staff Physician Cardiology 11/13/18 Special Events Coordinator Relationship Specialty Start Date End Date eliseoDashawn, OPERATIONS REPRESENTATIVE.GRAIN INSPECTOR [address] [place] [address] PCP - General Family Practice 03/08/22 Latosha Johnson, [facility] Painting Worker 12/10/14 Vamsi Cohen MD Primary Staff Physician Cardiology 11/13/18 Special Events Coordinator Relationship Specialty Start Date End Date Paul, OPERATIONS REPRESENTATIVE.GRAIN INSPECTOR [address] [place] [address] PCP - General Family Practice 03/08/22 Latosha Johnson LSW Painting Worker 12/10/14 Vamsi Cohen MD Primary Staff Physician Cardiology 11/13/18 Special Events Coordinator Relationship Specialty Start Date End Date Dashawn Cain, OPERATIONS REPRESENTATIVE.GRAIN INSPECTOR [address] [place] PCP - General Family Practice 03/08/22 Latosha Johnson [facility] Painting Worker 12/10/14 Vamsi Cohen MD Primary Staff Physician Cardiology 11/13/18 Special Events Coordinator Relationship Specialty Start Date End Date Alfredo Mccullough [place] Sr. [address] [place] PCP - General Family Medicine 12/31/19 03/07/22 Dashawn Cain, OPERATIONS REPRESENTATIVE.GRAIN INSPECTOR [address] [address] [facility] [place] P[facility] - General Family Medicine 03/08/22 Latosha Johnson [facility] Painting Worker 12/10/14 Vamsi Cohen MD Primary Staff Physician Cardiology 11/13/18 Special Events Coordinator Relationship Specialty Start Date End Date Dashawn Cain, OPERATIONS REPRESENTATIVE.GRAIN INSPECTOR [address] [place], [place] PCP - General Family Medicine 03/08/22 Latosha Johnson [facility] Painting Worker 12/10/14 Vamsi Cohen MD Primary Staff Physician Cardiology 11/13/18 Special Events Coordinator Relationship Specialty Start Date End Date Dashawn Cain, OPERATIONS REPRESENTATIVE.GRAIN INSPECTOR [address] [place], [place] PCP - General Family Medicine 03/08/22 Latosha Johnson, [facility] Painting Worker 12/10/14 Vamsi Cohen MD Primary Staff Physician Cardiology 11/13/18 Special Events Coordinator Relationship Specialty Start Date End Date DelfinDashawn, OPERATIONS REPRESENTATIVE.GRAIN INSPECTOR [address] [facility] [place] [address] PCP - General Family Medicine 03/08/22 Latosha Johnson, [facility] Painting Worker 12/10/14 Vamsi Cohen MD Primary Staff Physician Cardiology 11/13/18 Special Events Coordinator Relationship Specialty Start Date End Date DelfinPaul, OPERATIONS REPRESENTATIVE.GRAIN INSPECTOR [address] [place] [address] PCP - General Family Medicine 03/08/22 Latosha Johnson, [facility] Painting Worker 12/10/14 Vamsi Cohen MD Primary Staff Physician Cardiology 11/13/18 Special Events Coordinator Relationship Specialty Start Date End Date DelfinDashawn, OPERATIONS REPRESENTATIVE.GRAIN INSPECTOR [address] [facility] [place] [address] PCP - General Family Medicine 03/08/22 Latosha Johnson, [facility] Painting Worker 12/10/14 Vamsi Cohen MD Primary Staff Physician Cardiology 11/13/18 Special Events Coordinator Relationship Specialty Start Date End Date DelfinDashawn, OPERATIONS REPRESENTATIVE.GRAIN INSPECTOR [address] [facility] [place] [address] PCP - General Family Medicine 03/08/22 Latosha Johnson, [facility] Painting Worker 12/10/14 Vamsi Cohen MD Primary Staff Physician Cardiology 11/13/18 Special Events Coordinator Relationship Specialty Start Date End Date DelfinDashawn, OPERATIONS REPRESENTATIVE.GRAIN INSPECTOR [address] [place] [place] [address] PCP - General Family Medicine 03/08/22 Latosha Johnson [facility] Painting Worker 12/10/14 Vamsi Cohen MD Primary Staff Physician Cardiology 11/13/18 Special Events Coordinator Relationship Specialty Start Date End Date Dashawn, OPERATIONS REPRESENTATIVE.GRAIN INSPECTOR [address] [place] PCP - General Family Medicine 03/08/22 Latosha Johnson [facility] Painting Worker 12/10/14 Vamsi Cohen MD Primary Staff Physician Cardiology 11/13/18 Special Events Coordinator Relationship Specialty Start Date End Date Dashawn, OPERATIONS REPRESENTATIVE.GRAIN INSPECTOR [address] [address] [facility] [place] [place] PCP - General Family Medicine 03/08/22 Latosha Johnson [facility] Painting Worker 12/10/14 Vamsi Cohen MD Primary Staff Physician Cardiology 11/13/18 Special Events Coordinator Relationship Specialty Start Date End Date DelfinDashawn, OPERATIONS REPRESENTATIVE.GRAIN INSPECTOR [address] [facility] [place] P[facility] - General Family Medicine 03/08/22 Latosha Johnson [facility] Painting Worker 12/10/14 Vamsi Cohen MD Primary Staff Physician Cardiology 11/13/18 Special Events Coordinator Relationship Specialty Start Date End Date PaytonDashawn, OPERATIONS REPRESENTATIVE.GRAIN INSPECTOR PCP - General Family Medicine 03/08/22 Latosha Johnson LSW Painting Worker 12/10/14 Vamsi Cohen MD Primary Staff Physician Cardiology 11/13/18 Special Events Coordinator Relationship Specialty Start Date End Date RhetteliesoDashawn, OPERATIONS REPRESENTATIVE.GRAIN INSPECTOR PCP - General Family Medicine 03/08/22 Latosha Johnson LSW Painting Worker 12/10/14 Vamsi Cohen MD Primary Staff Physician Cardiology 11/13/18 Special Events Coordinator Relationship Specialty Start Date End Date Latosha Johnson [facility] Painting Worker 12/10/14 Vamsi Cohen MD Primary Staff Physician Cardiology 11/13/18 Special Events Coordinator Relationship Specialty Start Date End Date Vivi Smith MD [address] [place] [phone] PCP - General Family Medicine 12/08/22 Latosha Johnson [facility] Painting Worker 12/10/14 Vamsi Cohen MD Primary Staff Physician Cardiology 11/13/18 Special Events Coordinator Relationship Specialty Start Date End Date Vivi Smith MD [address] [place] [phone] PCP - General Family Medicine 12/08/22 Latosha Johnson, [employer] Painting Worker 12/10/14 Vamsi Cohen MD Primary Staff Physician Cardiology 11/13/18 Special Events Coordinator Relationship Specialty Start Date End Date Vivi Smith MD [facility] [place] [address] PCP - General Family Medicine 12/08/22 Latosha Johnson, [facility] Painting Worker 12/10/14 Vamsi Cohen MD Primary Staff Physician Cardiology 11/13/18 Special Events Coordinator Relationship Specialty Start Date End Date Vivi Smith MD [facility] [place] [address] PCP - General Family Medicine 12/08/22 Latosha Johnson, [facility] Painting Worker 12/10/14 Vamsi Cohen MD Primary Staff Physician Cardiology 11/13/18 Special Events Coordinator Relationship Specialty Start Date End Date Vivi Smith MD [address] [place] [phone] PCP - General Family Medicine 12/08/22 Latosha Johnson, [facility] Painting Worker 12/10/14 Vamsi Cohen MD Primary Staff Physician Cardiology 11/13/18 Special Events Coordinator Relationship Specialty Start Date End Date Vivi Smith MD [facility] [address] PCP - General Family Medicine 12/08/22 Latosha Johnson, [facility] Painting Worker 12/10/14 Vamsi Cohen MD Primary Staff Physician Cardiology 11/13/18 Special Events Coordinator Relationship Specialty Start Date End Date Vivi Smith MD [address] [place] [phone] PCP - General Family Medicine 12/08/22 Latosha Johnson, [facility] Painting Worker 12/10/14 Vamsi Cohen MD Primary Staff Physician Cardiology 11/13/18 Special Events Coordinator Relationship Specialty Start Date End Date Vivi Smith MD [address] [place] [phone] PCP - General Family Medicine 12/08/22 Latosha Johnson, [employer] Painting Worker 12/10/14 Vamsi Cohen MD Primary Staff Physician Cardiology 11/13/18 Special Events Coordinator Relationship Specialty Start Date End Date Dashawn Cain, OPERATIONS REPRESENTATIVE.GRAIN INSPECTOR PCP - General Family Medicine 03/08/22 11/06/22 Vivi Smith MD [address] [place] [phone] PCP - General Family Medicine 12/08/22 Latosha Johnson, [facility] Painting Worker 12/10/14 Vamsi Cohen MD Primary Staff Physician Cardiology 11/13/18 Special Events Coordinator Relationship Specialty Start Date End Date Vivi Smith MD [address] [place] [phone] PCP - General Family Medicine 12/08/22 Latosha Johnson, [facility] Painting Worker 12/10/14 Vamsi Cohen MD Primary Staff Physician Cardiology 11/13/18 Special Events Coordinator Relationship Specialty Start Date End Date Vivi Smith MD [address] [place] [phone] PCP - General Family Medicine 12/08/22 Latosha Johnson LSW Painting Worker 12/10/14 Vamsi Cohen MD Primary Staff Physician Cardiology 11/13/18 Special Events Coordinator Relationship Specialty Start Date End Date No, Physician [facility] PCP - General 03/20/23 Team Status: Active Member Role Status Dates No Primary Care Physician Primary Care Provider Active Dr. Lin Johansen MD Emergency Provider Active Dr. David Smith MD Admit Provider, Attending Provider Active Special Events Coordinator Relationship Specialty Start Date End Date Alfredo Mccullough MD [address] [place] [phone] PCP - General 01/18/21 Team Status: Inactive Member Role Status Dates Dr. Greg Philip DO Attending Provider, Emergency P neida Active No Primary Care Physician Primary Care Provider Active Team Status: Inactive Member Role Status Dates No Primary Care Physician Primary Care Provider Active Dr. Marc Carl , Emergency Provider Active Special Events Coordinator Relationship Specialty Start Date End Date Vivi Smith MD [address] [place] [phone] PCP - General Family Medicine 12/08/22 Latosha Johnson LSW Painting Worker 12/10/14 Vamsi Cohen MD Primary Staff Physician [...] DO Admit Provider, Attending Pr ovider Active Special Events Coordinator Relationship Specialty Start Date End Date Vivi Smith MD [address] [place] [phone] PCP - General Family Medicine 12/08/22 Latosha Johnson, [employer] Painting Worker 12/10/14 Vamsi Cohen MD Primary Staff Physician Cardiology 11/13/18 Special Events Coordinator Relationship Specialty Start Date End Date [facility] [address] [place] [phone] PCP - General 08/15/23 Special Events Coordinator Relationship Specialty Start Date End Date Vivi Smith MD [address] [place] [phone] PCP - General Family Medicine 12/08/22 Latosha Johnson, MICHELLE Painting Worker 12/10/14 Vamsi Cohen MD Primary Staff Physician Cardiology 11/13/18 Special Events Coordinator Relationship Specialty Start Date End Date Vivi Smith MD [address] [place] [phone] PCP - General Family Medicine 12/08/22 Latosha Johnson, MICHELLE Painting Worker 12/10/14 Vamsi Cohen MD Primary Staff Physician Cardiology 11/13/18 Special Events Coordinator Relationship Specialty Start Date End Date Vivi Smith MD [address] [place] [id number] PCP - General Family Medicine 12/08/22 JohnsonLatosha reddy, [facility] Painting Worker 12/10/14 Vamsi Cohen MD Primary Staff Physician Cardiology 11/13/18 Kyara Luis, back wedgerWinch Derrick Operator 10/12/23 Team Status: Active Member Role Status Dates SARAH MELLO Primary Care Provider Active Dr. Alexandro Garces MD Emergency Provider Active Dr. Vita Jefferson MD Admit Provider, Attending Prov ider Active Special Events Coordinator Relationship Specialty Start Date End Date Vivi Smith MD [address] [place] [id number] PCP - General Family Medicine 12/08/22 Latosha Johnson, [facility] Painting Worker 12/10/14 Vamsi Cohen MD Primary Staff Physician Cardiology 11/13/18 Kyara Luis, back wedgerWinch Derrick Operator 10/12/23 Kyara Luis RN Primary Care Jacket Preparer 10/19/23 Special Events Coordinator Relationship Specialty Start Date End Date Gracie Godoy [address] [place] [phone] PCP - General 08/15/23 Team Status: Inactive Member Role Status Dates Out of Town Doctor Primary Care Provider Active Dr. Lin Johansen MD Attending Provider, Emergency Provider Active Team Status: Inactive Member Role Status Dates Out of Town Doctor Primary Care Provider Active Ed Physician Provider Emergency Provider Active Special Events Coordinator Relationship Specialty Start Date End Date Vivi Smith MD [address] [place] [phone] PCP - General Family Medicine 12/08/22 Latosha Johnson, [employer] Painting Worker 12/10/14 Vamsi Cohen MD Primary Staff Physician Cardiology 11/13/18 Kyara Luis back wedgerWinch Derrick Operator 10/12/23 Special Events Coordinator Relationship Specialty Start Date End Date [facility] [address] [place] [address] PCP - General 08/15/23 Special Events Coordinator Relationship Specialty Start Date End Date [facility] [address] [place] [address] PCP - General 08/15/23 Special Events Coordinator Relationship Specialty Start Date End Date Vivi Smith MD [address] [place] [phone] PCP - General Family Medicine 12/08/22 Latosha Johnson, [employer] Painting Worker 12/10/14 Vamsi Cohen MD Primary Staff Physician Cardiology 11/13/18 Kyara Luis, back wedgerWinch Derrick Operator 10/12/23 Special Events Coordinator Relationship Specialty Start Date End Date Vivi Smith MD [address] [place] [phone] PCP - General Family Medicine 12/08/22 Latosha Johnson, MICHELLE Painting Worker 12/10/14 Vamsi Cohen MD Primary Staff Physician Cardiology 11/13/18 Kyara Luis, back wedgerWinch Derrick Operator 10/12/23 Special Events Coordinator Relationship Specialty Start Date End Date Vivi Smith MD [address] [place] [phone] PCP - General Family Medicine 12/08/22 Latosha Johnson, [employer] Painting Worker 12/10/14 Vamsi Cohen MD Primary Staff Physician Cardiology 11/13/18 Kyara Luis, back wedgerWinch Derrick Operator 10/12/23 Special Events Coordinator Relationship Specialty Start Date End Date Vivi Smith MD [address] [place] [phone] PCP - General Family Medicine 12/08/22 Latosha Johnson, [employer] Painting Worker 12/10/14 Vamsi Cohen MD Primary Staff Physician Cardiology 11/13/18 Kyara Lius, back wedgerWinch Derrick Operator 10/12/23 Special Events Coordinator Relationship Specialty Start Date End Date [facility] [address] [place] [address] PCP - General 08/15/23 Special Events Coordinator Relationship Specialty Start Date End Date [facility] [address] [place] [address] PCP - General 08/15/23 Special Events Coordinator Relationship Specialty Start Date End Date Vivi Smith MD [address] [place] [phone] PCP - General Family Medicine 12/08/22 Latosha Johnson, [employer] Painting Worker 12/10/14 Vamsi Cohen MD Primary Staff Physician Cardiology 11/13/18 Kyara Luis, back wedgerWinch Derrick Operator 10/12/23 Special Events Coordinator Relationship Specialty Start Date End Date Vivi Smith MD [address] [place] [phone] PCP - General Family Medicine 12/08/22 Latosha Johnson, [facility] Painting Worker 12/10/14 Vamsi Cohen MD Primary Staff Physician Cardiology 11/13/18 Kyara Luis, back wedgerWinch Derrick Operator 10/12/23 Special Events Coordinator Relationship Specialty Start Date End Date Vivi Smith MD [address] [place] [phone] PCP - General Family Medicine 12/08/22 Latosha Johnson, [facility] Painting Worker 12/10/14 Vamsi Cohen MD Primary Staff Physician Cardiology 11/13/18 Kyara Luis, back wedgerWinch Derrick Operator 10/12/23 Special Events Coordinator Relationship Specialty Start Date End Date Vivi Smith MD [address] [place], [place] [phone] PCP - General Family Medicine 12/08/22 Latosha Johnson, [facility] Painting Worker 12/10/14 Vamsi Cohen MD Primary Staff Physician Cardiology 11/13/18 Kyara Luis, back wedgerWinch Derrick Operator 10/12/23 Special Events Coordinator Relationship Specialty Start Date End Date Vivi Smith MD [address] [place] [phone] PCP - General Family Medicine 12/08/22 Latosha Johnson LSW Painting Worker 12/10/14 Vamsi Cohen MD Primary Staff Physician Cardiology 11/13/18 Kyara Luis back wedgerWinch Derrick Operator 10/12/23 Special Events Coordinator Relationship Specialty Start Date End Date Vivi Smith MD [address] [place] [phone] PCP - General Family Medicine 12/08/22 Latosha Johnson, MICHELLE Painting Worker 12/10/14 Vamsi Cohen MD Primary Staff Physician Cardiology 11/13/18 Kyara Luis back wedgerWinch Derrick Operator 10/12/23 Special Events Coordinator Relationship Specialty Start Date End Date Alfredo Mccullough MD [address] [place] [phone] PCP - General 01/18/21 Special Events Coordinator Relationship Specialty Start Date End Date Alfredo Mccullough MD [address] [place] [address] [phone] PCP - General 01/18/21 Special Events Coordinator Relationship Specialty Start Date End Date Vivi Smith MD [address] [place] [phone] PCP - General Family Medicine 12/08/22 Latosha Johnson, [employer] Painting Worker 12/10/14 Vamsi Cohen MD Primary Staff Physician Cardiology 11/13/18 Gohlke, Kyara S, back wedgerWinch Derrick Operator 10/12/23 Special Events Coordinator Relationship Specialty Start Date End Date Vivi Smith MD [address] [place], [place] [phone] PCP - General Family Medicine 12/08/22 Latosha Johnson, [facility] Painting Worker 12/10/14 Vamsi Cohen MD Primary Staff Physician Cardiology 11/13/18 Kyara Luis, back wedgerWinch Derrick Operator 10/12/23 Special Events Coordinator Relationship Specialty Start Date End Date Vivi Smith MD [address] [place] [address] PCP - General Family Medicine 12/08/22 Latosha Johnson, [facility] Painting Worker 12/10/14 Vamsi Cohen MD Primary Staff Physician Cardiology 11/13/18 Kyara Luis, back wedgerWinch Derrick Operator 10/12/23 Special Events Coordinator Relationship Specialty Start Date End Date Vivi Smith MD [address] [place] [address] PCP - General Family Medicine 12/08/22 Latosha Johnson, [facility] Painting Worker 12/10/14 Vamsi Cohen MD Primary Staff Physician Cardiology 11/13/18 Kyara Luis, back wedgerWinch Derrick Operator 10/12/23 Special Events Coordinator Relationship Specialty Start Date End Date Vivi Smith MD [address] [place], [place] [phone] PCP - General Family Medicine 12/08/22 Latosha Johnson, [facility] Painting Worker 12/10/14 Vamsi Cohen MD Primary Staff Physician Cardiology 11/13/18 Kyara Luis, back wedgerWinch Derrick Operator 10/12/23 Special Events Coordinator Relationship Specialty Start Date End Date Vivi Smith MD [address] [place] [phone] PCP - General Family Medicine 12/08/22 Latosha Johnson [facility] Painting Worker 12/10/14 Vamsi Cohen MD Primary Staff Physician Cardiology 11/13/18 Kyara Luis, back wedgerWinch Derrick Operator 10/12/23 Special Events Coordinator Relationship Specialty Start Date End Date Vivi Smith MD [address] [place] [phone] PCP - General Family Medicine 12/08/22 Latosha Johnson, [facility] Painting Worker 12/10/14 Vamsi Cohen MD Primary Staff Physician Cardiology 11/13/18 Kyara Luis, back wedgerWinch Derrick Operator 10/12/23 Special Events Coordinator Relationship Specialty Start Date End Date [facility] [address] [place] [address] PCP - General 08/15/23 Special Events Coordinator Relationship Specialty Start Date End Date [facility] [address] [place] [address] PCP - General 08/15/23 Reason for Visit [...] Referred By Ajay cobb Referred To Contact DIGITAL EXPERIENCE MANAGER Diagnoses STD exposure ROCEPHIN INJECTION - GONORRHEA Procedures INJECTION , Phoebe Richter, OPERATIONS REPRESENTATIVE.GRAIN INSPECTOR [address] [place] [address] Phoebe, OPERATIONS REPRESENTATIVE.GRAIN INSPECTOR [address] [place] [address] Referral ID Status Reason Start Date Expiration Date V isits Requested Visits Authorized [id number] Closed Benefit Check 05/10/2022 08/27/2022 1 1 [...] Expiration Date Visits Re quested Visits Authorized [id number] 1 1 Reason Onset Date Comments Med Refill 05/02/2023 Reason Comments High Blood Sugar Reason Onset Date Comments Transition Of Care 08/15/2023 Reason Onset Date Comments Winch Derrick Operator Chronic Care 09/29/2023 Reason Onset Date Comments Refill Request 09/21/2023 Reason Comments Forms DME: CCS for pump gleason pplies Reason Onset Date Comments Winch Derrick Operator Chronic Care 10/12/2023 Reason Onset Date Comments Transition Of Care 10/19/2023 Message Reason Onset Date Comments Transition Of Care 10/20/2023 Reason Onset Date Comments Transition Of Care 10/27/2023 Reason Onset Date Comments Transition Of Care 11/03/2023 Reason Onset Date Comments Transition Of Care 11/10/2023 Reason Comments Psoriasis (PKN) Reason Onset Date Comments Winch Derrick Operator Chronic Care 12/15/2023 Reason Onset Date Comments [...] DSME MEDICAL NUTRITION ASSMT&IVNTJ INDIV EACH 15 NC MEDICAL NUTRITION ASSMT&IVNTJ INDIV EACH 15 NC MEDICAL NUTRITION ASSMT&IVNTJ INDIV EACH 15 [place] MEDICAL NUTRITION ASSMT&IVNTJ INDIV EACH 15 NC Kvng Lewis MD [address] [place] [address] Referral ID Status Reason Start Date Expiration Date V isits Requested Visits Authorized [id number] Closed PCP Requested Referral 03/12/2024 03/12/2025 1 [...] PLACED TUBE OR TUBE less than 14 Maltese. To administer dissolved tablet(s) mix with 4 [...] - Provider: Sixto Mercado RN)[id number] [facility] Provider: Liang Boothe, STIVEN) promethazine (PHENERGAN) suppository 12.5 mg 12.5 mg, Rectal, Every 6 hours PRN, nausea, vomiting, Starting on Mon03/21/23 at 1006 sodium chloride (PF) (NS) 0.9 % contrast line flush 10 mL (COMPLETED) 10 mL, Intravenous, Once in imaging, contrast, Per ice resurfacing machine operators (Radiology) for line patency check prior to contrast administration, Starting on Mon03/20/23 at 0551, For 1 dose 0806 (Given - Provider: Kaylyn Alvarado, TECHNOLOGIST) sodium chloride (PF) (NS) 0.9 % contrast line flush 80 mL (COMPLETED) 80 mL, Intravenous, Once in imaging, contrast, Per ice resurfacing machine operators (Radiology), Starting on Mon03/20/23 at 0551, For [...] BE BASED ON THE PRIMARY CLINICAL RECORDS. [employer] provides no warranty or guarantee of the accuracy or completeness of information in this document.
[2025-03-18 00:44] LABS: Anion Gap 26 (5-15); BUN 14 mg/dL (4-19); BUN/Creat Ratio 13.0 RATIO (10-20); Calcium,Total 8.0 mg/dL (7.6-11.0); Carbon Dioxide 6.1 mmol/L (21.0-32.0); Chloride 102 mmol/L (98-108); Estimated Creatinine Clearance 81.10 ml/min (50-250); Glucose 265 mg/dL (70-99); Potassium 4.6 mmol/L (3.3-5.1)
[2025-03-18] MEDS: Dext 5%-0.45% NS 1,000 ML 150 ML IV ×3 (03:14→16:45)
[2025-03-18 04:48] LABS: Anion Gap 23 (5-15); BUN 11 mg/dL (4-19); BUN/Creat Ratio 11.7 RATIO (10-20); Calcium,Total 8.3 mg/dL (7.6-11.0); Carbon Dioxide 7.8 mmol/L (21.0-32.0); Chloride 106 mmol/L (98-108); Estimated Creatinine Clearance 91.46 ml/min (50-250); Glucose 238 mg/dL (70-99); Potassium 4.7 mmol/L (3.3-5.1)
--- NOTE | 2025-03-18 06:43 | EX.PCM.CONCC ---
Assessment & Plan Assessment/Plan (1) Diabetic keto-acidosis: PLAN: Plan RECOMMENDATIONS: 1. Supplemental IV fluid hydration and continuous insulin fusion per DKA protocol. 2. Electrolyte repletion as needed. 3. Antiemetics as needed. 4. Transition to basal and sliding scale coverage once anion gap has been closed x 2. 5. Patient to remain n.p.o. for now. IMPRESSIONS: 1. Diabetic ketoacidosis The patient has a known history of poorly controlled diabetes mellitus with recurrent hospitalizations for DKA along with diabetic gastroparesis, neuropathy and cyclical vomiting syndrome. The patient will be continued on therapy per DKA protocol with supplemental IV fluids and continuous insulin infusion until anion gap has been closed x 2. Continue to monitor serial BMP with ongoing electrolyte repletion as needed. This note was generated with [employer] dictation software. It may contain incorrect words, spelling, and punctuation that were not noted in checking the note before signing. HPI Consult Data Date of Consult: 03/18/25 HPI Narrative Reason for Consultation: Diabetic ketoacidosis HPI Narrative: The patient is a 29-year-old female, with a history as outlined below, who presented to the emergency department on March 17 with nausea and vomiting. The patient has a history of repeated hospital admissions for diabetic ketoacidosis secondary to noncompliance. The patient was last admitted to the hospital under similar circumstances on March 06 and was subsequently discharged on March 08. She does carry an associated diagnosis of diabetic gastroparesis. On presentation to the emergency department, the patient was documented to be afebrile but was notably tachycardic and tachypneic. She was otherwise hemodynamically stable and maintaining appropriate oxygen saturations on room air. Laboratory evaluation was notable for a white blood cell count of 34,000. Chemistry profile was notable for a sodium of 128 with a potassium of 5.4, chloride of 84, bicarbonate of 6.0 and anion gap of 37. Creatinine was within normal limits. Glucose was elevated at 561. Beta hydroxybutyrate level was elevated at 9.3. The patient received supplemental IV fluid hydration and was started on a continuous insulin infusion. She was subsequently admitted to the medical intensive care unit for management of diabetic ketoacidosis. [facility] Medical History DKA, type 1 Insulin dependent diabetes mellitus Wears glasses Marijuana use Syncope Gastroparesis Electronic cigarette use History of echocardiogram History of stress test Cardiology follow-up encounter Metabolic acidosis Vomiting delivery delivered History of marijuana use Hx of diabetic gastroparesis Diabetes mellitus with hyperglycemia Intractable cyclical vomiting with nausea Depression Compensated metabolic acidosis Dysuria UTI (urinary tract infection) Hypokalemia Type 1 diabetes Metabolic acidosis Leukocytosis Intractable abdominal pain Intractable nausea and vomiting Panic disorder Major depressive disorder, recurrent severe without psychotic features Diabetic gastroparesis Substance abuse Kidney stones Kidney disease Smoker Intractable vomiting Type 1 diabetes Marfan syndrome PTSD (post-traumatic stress disorder) Borderline personality disorder Home Medications ?Medication ?Instructions ?Recorded ?Last Taken ?Type pen needle, diabetic 29 gauge x #100 ea 08/10/23 Unknown Rx 1/2 (Ultra-Thin II Insulin Pen [place]) risankizumab-rzaa 150 mg/mL 150 mg subcut .[id number] PSORIASIS 02/07/24 02/03/25 History subcutaneous pen injector (Skyrizi) Insulin Basal Pump (Pt's Own) 1.8 unit subcut UD diabetes ##0 06/11/24 03/05/25 Rx [Pump, Basal] albuterol sulfate 90 mcg/actuation 1 - 2 puff inhalation Q4H PRN PRN 08/01/24 Unknown Rx aerosol inhaler (Ventolin HFA) Wheezing ##1 doxepin 6 mg tablet 6 mg PO QHS insomnia 10/18/24 03/04/25 History promethazine 25 mg tablet 50 mg PO Q6H PRN nausea and 10/18/24 Unknown History vomiting quetiapine 50 mg tablet,extended 50 mg PO QHS mood 10/18/24 03/04/25 History release 24 hr cholecalciferol (vitamin D3) 1,250 1,250 mcg PO QWEEK 12/14/24 02/26/25 History mcg (50,000 unit) capsule plecanatide 3 mg tablet (Trulance) 3 mg PO DAILY 12/14/24 03/02/25 History haloperidol 5 mg tablet 5 mg PO TID PRN nausea and 12/16/24 03/04/25 Rx vomiting #20 tabs gabapentin 300 mg capsule 600 mg PO BID 01/08/25 03/04/25 History insulin lispro 100 unit/mL See Rx Instructions .Route 01/26/25 03/05/25 Rx subcutaneous solution (Humalog .COMPLEX #10 mL U-100 Insulin) prochlorperazine maleate 10 mg 10 mg PO TID PRN PRN 03/03/25 Unknown History tablet nausea/vomiting Allergy/AdvReac Type Severity Reaction Status Date / Time adhesive tape Allergy Intermediate Rash Verified 03/17/25 19:58 cephalexin (From Keflex) Allergy Intermediate yeast Verified 03/17/25 19:58 infection morphine Allergy Intermediate Rash Verified 03/17/25 19:58 oxycodone (From Percocet) Allergy Intermediate Rash Verified 03/17/25 19:58 ondansetron AdvReac I BLACK Verified 03/17/25 19:58 OUT AND LOSE CONTROL OF MY BLADDER Family History Mother Anxiety and depression Bipolar disorder PCOS (polycystic ovarian syndrome) Father Valvular heart disease Surgical History H/O tubal ligation History of loop recorder Hx of appendectomy Hx of eye surgery H/O aortic root repair Social History household members: spouse Smoking Status: Current every day smoker tobacco type: e-cigarettes Electronic Cigarette Use: with nicotine alcohol intake: never substance use type: marijuana ROS ROS Narrative 10 systems were reviewed with pertinent positives as noted in the HPI above. Physical Exam Const no apparent distress General Appearance: cooperative and lethargic HEENT normocephalic and head/scalp atraumatic Eyes PERRL, EOMs intact bilaterally and conjunctivae normal Neck supple General: trachea midline Chest inspection of chest normal Resp no use of accessory muscles Effort and Inspection: able to speak in complete sentences and tachypneic Auscultation: Negative for rales, rhonchi or wheezes Cardio regular rate and regular rhythm GI normal to inspection, nondistended, normoactive bowel sounds Extremity no clubbing, cyanosis or edema Skin no rashes or lesions noted Neuro moves all extremities and no focal motor deficits Psych Mood & Affect: flat affect Lab / Micro Data 03/17/25 20:40 03/18/25 04:05 Labs: Laboratory Results - last 24 hr 03/17/25 20:40: WBC 34.1 H*, RBC 4.69, Hgb 14.0, Hct 42.5, MCV 90.6, MCH 29.9, MCHC 32.9, RDW Std Deviation 42.9, RDW Coeff of Joyce 13.2, Plt Count 188, MPV 12.7 H, Immature Gran % (Auto) 4.200 H, Neut % (Auto) 90.2 H, Lymph % (Auto) 2.8 L, Carver % (Auto) 2.7, Eos % (Auto) 0.0, Baso % (Auto) 0.1, Absolute Neuts (auto) 30.8 H, Absolute Lymphs (auto) 0.94, Nucleated RBC % 0, Differential Comment SCANNED, Diff Path Review December, Platelet Estimate ADEQUATE, Sodium 128 L 03/17/25 20:40: Sodium Cancelled, Potassium 5.4 H 03/17/25 20:40: Potassium Cancelled, Chloride 84 L 03/17/25 20:40: Chloride Cancelled, Carbon Dioxide 6.0 L* 03/17/25 20:40: Carbon Dioxide Cancelled, Anion Gap 37 H 03/17/25 20:40: Anion Gap Cancelled, BUN 17 03/17/25 20:40: BUN Cancelled, Creatinine 1.18 03/17/25 20:40: Creatinine Cancelled, Estim Creat Clear Calc 72.85, Est GFR (MDRD) Non-Af 64 03/17/25 20:40: Est GFR (MDRD) Non-Af Cancelled, BUN/Creatinine Ratio 14.1 03/17/25 20:40: BUN/Creatinine Ratio Cancelled, Glucose 561 H* 03/17/25 20:40: Glucose Cancelled, Calcium 9.7 03/17/25 20:40: Calcium Cancelled, Total Bilirubin 0.74, AST 18, ALT 18, Alkaline Phosphatase 123 H, Total Protein 7.6, Albumin 5.0, Globulin 2.7, Albumin/Globulin Ratio 1.9, Lipase 10 L, b-Hydroxybutyric mmol/L 9.3 H, Serum , Qual NEGATIVE 03/17/25 23:27: POC Glucose 272 H 03/17/25 23:45: Sodium 134, Potassium 4.6, Chloride 102, Carbon Dioxide 6.1 L*, Anion Gap 26 H, BUN 14, Creatinine 1.06, Estim Creat Clear Calc 81.10, Est GFR (MDRD) Non-Af 72, BUN/Creatinine Ratio 13.0, Glucose 265 H, Calcium 8.0 03/18/25 00:46: POC Glucose 201 H 03/18/25 02:11: POC Glucose 199 H 03/18/25 03:18: POC Glucose 182 H 03/18/25 04:02: POC Glucose 203 H 03/18/25 04:05: Sodium 136, Potassium 4.7, Chloride 106, Carbon Dioxide 7.8 L*, Anion Gap 23 H, BUN 11, Creatinine 0.94, Estim Creat Clear Calc 91.46, Est GFR (MDRD) Non-Af 83, BUN/Creatinine Ratio 11.7, Glucose 238 H, Calcium 8.3 03/18/25 05:10: POC Glucose 241 H ABG Data ABG results: ABG 03/17/25 20:44 Specimen Type ISABELLE Sample Site Not entered VBG pH 7.15 L* VBG pO2 55 H VBG HCO3 6 L VBG Total CO2 7 L VBG O2 Sat (Calc) 80 H VBG Base Excess -23 L POC Mix VBG pCO2 Pt Tmp 17.3 L* O2 Delivery Device Room Air Crit Call To/Read Back Yes Blood Gas Notified Whom Garces Blood Gas Notified Time 20:45:58 Imaging Radiology Impression Chest X-Ray 03/17/25 21:42 IMPRESSION: Mild pulmonary vascular congestion. No focal consolidations. Reading Location: [id number] Charges/Coding Visit Charges Inpatient E&M: 91626 Init Hosp L2
[2025-03-18 08:58] LABS: Anion Gap 17 (5-15); BUN 9 mg/dL (4-19); BUN/Creat Ratio 10.8 RATIO (10-20); Calcium,Total 8.3 mg/dL (7.6-11.0); Carbon Dioxide 10.5 mmol/L (21.0-32.0); Chloride 108 mmol/L (98-108); Estimated Creatinine Clearance 103.58 ml/min (50-250); Glucose 219 mg/dL (70-99); Potassium 4.4 mmol/L (3.3-5.1)
--- NOTE | 2025-03-18 10:54 | CASEMGMT ---
STIVEN SMILEY Readmission Chart Review Index: . Dx: DKA Current: 03/17/25. Dx: DKA From the index admission, the patient was discharged home with her significant other and stepdaughter. The patient was advised to quit using THC as the hospitalist reported that the patient could be going through cannabinoid hyperemesis syndrome. The patient does have a history of diabetic gastroparesis. The patient was to follow up with her primary care provider as well as endocrinology and GI. The patient re-presents to [facility] ER with a blood sugar level of 561. The patient was admitted to the ICU in [facility]. STIVEN SMILEY to the patient room at this time. Patient is A&Ox3 and is resting comfortably in bed. The patient states that she was checking her blood sugar manually with a glucometer three times a day. Patient states that she has an insulin pump that is working appropriately. Patient denies any concerns regarding her diabetic equipment. Patient states that she has everything she needs to care for her diabetes appropriately. However, the patient states that she continues to use THC daily. Patient states that she was using more than two times per day. This RN CM offered resources to the patient or a social work follow-up. This RN CM educated the patient on the importance of cessation due to the hospitalist's concern for CHS. Unfortunately, the patient declines wanting any cessation resources and plans to continue use. The patient states that she was unable to follow up with her PCP as well as her high risk case manager, as the appointment for her high risk case manager is not until the end of the month. Per chart review, the patient has a case fitter through [facility]. Telephone call to the [facility] case fitter at this time (Leandra Dralingolly @ [phone]). No answer. Voice message left. Per chart review, the patient is active with a instructor private q Monday, Monday, , & Monday. Pt also gets home-delivered meals. Moving forward, the patient plans to be discharged back to her home with her significant other as well as her 11-year-old stepdaughter. Patient denies any current needs at the time of discharge. Care management to follow.Elo ARIAS RN, CM
[2025-03-18 13:25] LABS: Anion Gap 14 (5-15); BUN 7 mg/dL (4-19); BUN/Creat Ratio 9.9 RATIO (10-20); Calcium,Total 8.4 mg/dL (7.6-11.0); Carbon Dioxide 14.1 mmol/L (21.0-32.0); Chloride 110 mmol/L (98-108); Estimated Creatinine Clearance 116.17 ml/min (50-250); Glucose 187 mg/dL (70-99); Potassium 3.9 mmol/L (3.3-5.1)
--- NOTE | 2025-03-18 13:43 | PN_ITS ---
Subjective Subjective Patient seen and examined. She was lying in bed and was quite lethargic. Patient has had multiple admissions for DKA and this is similar to previous admissions. Anion gap remains elevated. She admits to nausea but denies any vomiting. She had no other complaints. Review of systems otherwise negative. Objective Data Objective Data Vital Signs: Vital Signs Temp Pulse Resp BP Pulse Ox O2 Del Method 98.3 F 102 H 21 H 115/66 97 Room Air 03/18/25 02:12 03/18/25 06:00 03/18/25 06:00 03/18/25 06:00 03/18/25 09:15 03/18/25 09:15 Oxygen Delivery Method Room Air Weight: 154 lb 5.177 oz Body Mass Index (BMI) 22.8 Intake & Output: Intake and Output for Last 24 Hours 03/16/25 03/17/25 03/18/25 23:59 23:59 23:59 Intake Total 1008.4 / 1008.4 3020.28 / 3020.28 Output Total 800 / 800 Balance 1008.4 / 1008.4 2220.28 / 2220.28 Lab / Micro Data 03/17/25 20:40 03/18/25 12:15 Labs: Laboratory Results - last 24 hr 03/17/25 20:40: WBC 34.1 H*, RBC 4.69, Hgb 14.0, Hct 42.5, MCV 90.6, MCH 29.9, MCHC 32.9, RDW Std Deviation 42.9, RDW Coeff of Joyce 13.2, Plt Count 188, MPV 12.7 H, Immature Gran % (Auto) 4.200 H, Neut % (Auto) 90.2 H, Lymph % (Auto) 2.8 L, Lea % (Auto) 2.7, Eos % (Auto) 0.0, Baso % (Auto) 0.1, Absolute Neuts (auto) 30.8 H, Absolute Lymphs (auto) 0.94, Nucleated RBC % 0, Differential Comment SCANNED, Diff Path Review December, Platelet Estimate ADEQUATE, Sodium 128 L 03/17/25 20:40: Sodium Cancelled, Potassium 5.4 H 03/17/25 20:40: Potassium Cancelled, Chloride 84 L 03/17/25 20:40: Chloride Cancelled, Carbon Dioxide 6.0 L* 03/17/25 20:40: Carbon Dioxide Cancelled, Anion Gap 37 H 03/17/25 20:40: Anion Gap Cancelled, BUN 17 03/17/25 20:40: BUN Cancelled, Creatinine 1.18 03/17/25 20:40: Creatinine Cancelled, Estim Creat Clear Calc 72.85, Est GFR (MDRD) Non-Af 64 03/17/25 20:40: Est GFR (MDRD) Non-Af Cancelled, BUN/Creatinine Ratio 14.1 03/17/25 20:40: BUN/Creatinine Ratio Cancelled, Glucose 561 H* 03/17/25 20:40: Glucose Cancelled, Calcium 9.7 03/17/25 20:40: Calcium Cancelled, Total Bilirubin 0.74, AST 18, ALT 18, A lkaline Phosphatase 123 H, Total Protein 7.6, Albumin 5.0, Globulin 2.7, Albumin/Globulin Ratio 1.9, Lipase 10 L, b-Hydroxybutyric mmol/L 9.3 H, Serum , Qual NEGATIVE 03/17/25 23:27: POC Glucose 272 H 03/17/25 23:45: Sodium 134, Potassium 4.6, Chloride 102, Carbon Dioxide 6.1 L*, Anion Gap 26 H, BUN 14, Creatinine 1.06, Estim Creat Clear Calc 81.10, Est GFR (MDRD) Non-Af 72, BUN/Creatinine Ratio 13.0, Glucose 265 H, Calcium 8.0 03/18/25 00:46: POC Glucose 201 H 03/18/25 02:11: POC Glucose 199 H 03/18/25 03:18: POC Glucose 182 H 03/18/25 04:02: POC Glucose 203 H 03/18/25 04:05: Sodium 136, Potassium 4.7, Chloride 106, Carbon Dioxide 7.8 L*, Anion Gap 23 H, BUN 11, Creatinine 0.94, Estim Creat Clear Calc 91.46, Est GFR (MDRD) Non-Af 83, BUN/Creatinine Ratio 11.7, Glucose 238 H, Calcium 8.3 03/18/25 05:10: POC Glucose 241 H 03/18/25 06:14: POC Glucose 229 H 03/18/25 07:02: POC Glucose 218 H 03/18/25 08:00: Sodium 136, Potassium 4.4, Chloride 108, Carbon Dioxide 10.5 L, Anion Gap 17 H, BUN 9, Creatinine 0.83, Estim Creat Clear Calc 103.58, Est GFR (MDRD) Non-Af 98, BUN/Creatinine Ratio 10.8, Glucose 219 H, Calcium 8.3 03/18/25 08:02: POC Glucose 204 H 03/18/25 09:08: POC Glucose 200 H 03/18/25 10:06: POC Glucose 192 H 03/18/25 10:58: POC Glucose 176 H 03/18/25 12:14: POC Glucose 171 H 03/18/25 12:15: Sodium 138, Potassium 3.9, Chloride 110 H, Carbon Dioxide 14.1 L , Anion Gap 14, BUN 7, Creatinine 0.74, Estim Creat Clear Calc 116.17, Est GFR (MDRD) Non-Af 112, BUN/Creatinine Ratio 9.9 L, Glucose 187 H, Calcium 8.4 ABG Data ABG results: ABG 03/17/25 20:44 Specimen Type ISABELLE Sample Site Not entered VBG pH 7.15 L* VBG pO2 55 H VBG HCO3 6 L VBG Total CO2 7 L VBG O2 Sat (Calc) 80 H VBG Base Excess -23 L POC Mix VBG pCO2 Pt Tmp 17.3 L* O2 Delivery Device Room Air Crit Call To/Read Back Yes Blood Gas Notified Whom Garces Blood Gas Notified Time 20:45:58 Radiography Diagnostic Testing: Radiology Impression Chest X-Ray 03/17/25 21:42 IMPRESSION: Mild pulmonary vascular congestion. No focal consolidations. Reading Location: [facility] Physical Exam Const alert General Appearance: cooperative Orientation / Consciousness: lethargic HEENT normocephalic and head/scalp atraumatic Mouth: dry mucous membranes Eyes EOMs intact bilaterally Neck no lymphadenopathy and supple Lymph Lymphatic: no lymphadenopathy noted Resp normal respiratory effort, normal air movement and clear to auscultation bilaterally Cardio regular rate, regular rhythm, S1 normal heart sound, S2 normal heart sound and no murmurs GI normal to inspection, nondistended, normoactive bowel sounds, soft to palpation, non-tender and non-distended Extremity normal capillary refill, no clubbing, cyanosis or edema and no calf tenderness General Extremity: no tenderness to palpation of joints or extremities Skin General Skin Exam: no breakdown Neuro CN's II-XII intact bilaterally and no focal motor deficits Motor Exam: general weakness Psych thought process normal Mood & Affect: flat affect Assessment & Plan Assessment/Plan (1) Intractable nausea and vomiting: (2) DKA, type 1: (3) Diabetic keto-acidosis: PLAN: Plan #Acute DKA in a known patient with type 1 diabetes mellitus and chronic noncompliance * She was admitted with elevated blood sugar and found to be in DKA. WBC was elevated at 34,000. * Started on insulin drip. Anion gap still elevated. Original anion gap was 37. Was down to 17 this morning. * Continue insulin drip. Keep n.p.o. until gap is closed x 2 and blood sugars less than 250 then to transition to home dose of insulin. * Critical care consulted. * #History of diabetes gastroparesis: Due to type 1 diabetes mellitus. Follows up with gastroenterology on outpatient basis. Resume promethazine and prochlorperazine once anion gap closes and she is no longer NPO. #Leukocytosis: WBC is elevated at 34,000. May likely be reactive. No clear source of infection. She is also no fever and urinalysis showed no evidence of UTI. Will monitor for now and hold off on antibiotics. #History of PTSD and borderline personality disorder: On Seroquel and doxepin #History of psoriasis: On Skyrizi #History of cannabis use disorder: She says she uses medical marijuana and has a marijuana card. DVT prophylaxis: Lovenox Charges/Coding Visit Charges Inpatient E&M: 59723 [facility] Hosp L3
[2025-03-18 17:22] LABS: Anion Gap 12 (5-15); BUN 6 mg/dL (4-19); BUN/Creat Ratio 8.4 RATIO (10-20); Calcium,Total 8.6 mg/dL (7.6-11.0); Carbon Dioxide 16.1 mmol/L (21.0-32.0); Chloride 109 mmol/L (98-108); Estimated Creatinine Clearance 114.62 ml/min (50-250); Glucose 142 mg/dL (70-99); Potassium 3.8 mmol/L (3.3-5.1)
[2025-03-18] MEDS: Insulin Glargine-YFGN 100 UNIT/ML Pen 40 UNIT SC (18:46)
[2025-03-18] MEDS: 0.9% Saline Lock 10 ML Syringe IV ×2 (20:48→22:50)
--- NOTE | 2025-03-18 21:17 | PCM.HOSP.N ---
Hospitalist Note DKA resolved, tolerating diet, will transfer to [place].
[2025-03-19] MEDS: 0.9% Saline Lock 10 ML Syringe IV (04:20)
[2025-03-19 04:30] VITALS: BP 154/75; PULSE 89; RESP 19; TEMP 36.6; O2SAT 100
[2025-03-19 05:13] VITALS: BMI 22.8
[2025-03-19 07:01] LABS: Hematocrit 40.2 % (37-47); Hemoglobin 13.5 g/dL (12.0-15.0); Immature Granulocytes Count 0.190 X10^3/uL (0.0-0.0); Mean Corp Hgb Conc 33.6 g/dL (32-36); Mean Corpuscular Volume 87.4 fL (81-99); Mean Platelet Vol. 11.7 fl (6.2-12.0); NRBC Flagged by Analyzer 0 % (0-5); Platelet Count 165 K/mm3 (150-450); RBC Distribution Width CV 13.8 % (11.6-14.6); RBC Distribution Width SD 43.9 fl (35.1-43.9); Red Blood Count 4.60 M/mm3 (4.2-5.4); White Blood Count 17.3 K/mm3 (4.4-11.0)
[2025-03-19 07:10] VITALS: O2SAT 97
[2025-03-19 07:30] LABS: Magnesium 1.8 mg/dL (1.5-2.2)
[2025-03-19 07:39] LABS: Anion Gap 24 (5-15); BUN 7 mg/dL (4-19); BUN/Creat Ratio 8.5 RATIO (10-20); Calcium,Total 8.8 mg/dL (7.6-11.0); Chloride 99 mmol/L (98-108); Estimated Creatinine Clearance 106.13 ml/min (50-250); Glucose 352 mg/dL (70-99); Potassium 4.0 mmol/L (3.3-5.1)
[2025-03-19 08:00] LABS: Carbon Dioxide 9.9 mmol/L (21.0-32.0)
[2025-03-19] MEDS: Insulin Glargine-YFGN 100 UNIT/ML Pen 40 UNIT SC (08:00)
[2025-03-19 09:15] VITALS: BP 122/64; PULSE 84; RESP 18; TEMP 36.5; O2SAT 99
--- NOTE | 2025-03-19 10:33 | PCM.DC ---
Discharge Instructions DC O2, CPAP, BIPAP needs Home O2 Discharge instructions: No Dressing / Incision Weight Bearing Status: Weight bearing as tolerated Dressing / Incision Call your doctor if you observe: Fever of 101 or Higher, Shortness of breath, Dizziness, Swelling in the ankles and - (poorly controlled blood sugars) Follow Up Care Test Results: Test results from this visit will be discussed in further detail at your follow-up appointment, if applicable. Discharge Plan Admission Admit Date/Time: 03/17/25 23:39 Primary Reason for Your Visit: DKA Attending Provider: Vita Jefferson Primary Care Provider: Jaime Barbour [facility] [place] Consulting Providers: Siddharth Saucedo; Pa Woo; Yosvany Anders; Lino Helton; Umair Hayes; Horacio Washburn; Roberto Rivera; Sukhdev Temple; Siri Cedeno; Balwinder Del Rio; Valdo Jeff; Lul Gamez; Sarah Walters; Jean Paul Bae; Paris Mendoza; Chase Cooper; Godwin Avilez; Aleksander Gaviria; Sedrick James; Nelda Hopper; Vu Strauss; Jose A Anderson; Harman Roche; Lenny Klein Instructions Patient Instructions: Ketoacidosis Ch Discharge Orders/Prescriptions Prescriptions: Continued gabapentin 300 mg capsule 600 mg PO BID (DME) pen needle, diabetic [Ultra-Thin II Ins Pen [place]] 29 gauge x 1/2 needle See Rx Instructions .Route Qty: 100 0RF Rx Instructions: As directed Skyrizi 150 mg/mL pen injector 150 mg subcut .[id number] albuterol sulfate [Ventolin HFA] 90 mcg/actuation HFA aerosol inhaler 1 - 2 puff inhalation Q4H PRN PRN (Reason: Wheezing) Qty: 1 0RF cholecalciferol (vitamin D3) 1,250 mcg (50,000 unit) capsule 1,250 mcg PO QWEEK Trulance 3 mg tablet 3 mg PO DAILY haloperidol 5 mg tablet 5 mg PO TID PRN (Reason: nausea and vomiting) Qty: 20 0RF Rx Instructions: Take 1/2-1 3 times a day as needed nausea and vomiting prochlorperazine maleate 10 mg tablet 10 mg PO TID PRN PRN (Reason: nausea/vomiting) insulin lispro [Humalog U-100 Insulin] 100 unit/mL solution See Rx Instructions .ROUTE .COMPLEX Qty: 10 4RF Rx Instructions: 100 U VIA PUMP DAILY; BASAL RATE - 1.8 UNITS/HOUR BOLUS: CARB RATIO- 1 UNIT /10 GRAMS OF CARBS CORRECTION- 1 UNIT FOR EVERY 30MG/DL BLOOD GLUCOSE OVER 120 Insulin Basal Pump (Pt's Own) [Pump, Basal] 1.8 unit subcut UD Qty: 0 0RF promethazine 25 mg tablet 50 mg PO Q6H PRN (Reason: nausea and vomiting) Rx Instructions: one or two every six hours for nausea quetiapine 50 mg tablet extended release 24 hr 50 mg PO QHS doxepin 6 mg tablet 6 mg PO QHS Referrals / Follow Up: Jaime Barbour [facility], SAFETY OFFICER-C [Primary Care Provider] - Within 1 Week Disposition Disposition (needs filled in before D/C Order can be placed): Home, Self Care
--- NOTE | 2025-03-19 10:36 | PCM.DC.SUM ---
Providers Date of Admission: 03/17/25 Date of Discharge: 03/19/25 Primary Care Physician: SHAWNA Bellamy, NUCLEAR WEAPONS SPECIALIST-C Consultations 03/18/25 01:46 Consult: Party Bus Driver / Pulmonary Medicine Routine Consulting Provider: Intensivists/Pulmonary Med Reason for Consult: icu management EMERGENT Consult: Yes MD Notified: Yes Date Notified: 03/17/25 Time Notified: 23:43 Method of Notification: Text Reason For Visit: DIABETIC KETOACIDOSIS Diagnosis Discharge Diagnosis (1) Intractable nausea and vomiting: Status: Acute Code(s): R11.2 - Nausea with vomiting, unspecified (2) DKA, type 1: Status: Acute Code(s): E10.10 - Type 1 diabetes mellitus with ketoacidosis without coma (3) Diabetic keto-acidosis: Status: Acute Code(s): E11.10 - Type 2 diabetes mellitus with ketoacidosis without coma Plan #Acute DKA in a known patient with type 1 diabetes mellitus and chronic noncompliance She was admitted with elevated blood sugar and found to be in DKA. WBC was elevated at 34,000. Started on insulin drip. Anion gap still elevated. Original anion gap was 37. Was down to 17 this morning. Continue insulin drip. Keep n.p.o. until gap is closed x 2 and blood sugars less than 250 then to transition to home dose of insulin. Critical care consulted. #History of diabetes gastroparesis: Due to type 1 diabetes mellitus. Follows up with gastroenterology on outpatient basis. Resume promethazine and prochlorperazine once anion gap closes and she is no longer NPO. #Leukocytosis: WBC is elevated at 34,000. May likely be reactive. No clear source of infection. She is also no fever and urinalysis showed no evidence of UTI. Will monitor for now and hold off on antibiotics. #History of PTSD and borderline personality disorder: On Seroquel and doxepin #History of psoriasis: On Skyrizi #History of cannabis use disorder: She says she uses medical marijuana and has a marijuana card. DVT prophylaxis: Lovenox Medications at Discharge Home Medications pen needle, diabetic 29 gauge x 1/2 (Ultra-Thin II Insulin Pen [place]) #100 ea 08/10/23 risankizumab-rzaa 150 mg/mL subcutaneous pen injector (Skyrizi) 150 mg subcut .[id number] PSORIASIS 02/07/24 Insulin Basal Pump (Pt's Own) [Pump, Basal] 1.8 unit subcut UD diabetes ##0 06/11/24 albuterol sulfate 90 mcg/actuation aerosol inhaler (Ventolin HFA) 1 - 2 puff inhalation Q4H PRN PRN Wheezing ##1 08/01/24 doxepin 6 mg tablet 6 mg PO QHS insomnia 10/18/24 promethazine 25 mg tablet 50 mg PO Q6H PRN nausea and vomiting 10/18/24 quetiapine 50 mg tablet,extended release 24 hr 50 mg PO QHS mood 10/18/24 cholecalciferol (vitamin D3) 1,250 mcg (50,000 unit) capsule 1,250 mcg PO QWEEK 12/14/24 plecanatide 3 mg tablet (Trulance) 3 mg PO DAILY 12/14/24 haloperidol 5 mg tablet 5 mg PO TID PRN nausea and vomiting #20 tabs 12/16/24 gabapentin 300 mg capsule 600 mg PO BID 01/08/25 insulin lispro 100 unit/mL subcutaneous solution (Humalog U-100 Insulin) See Rx Instructions .Route .COMPLEX #10 mL 01/26/25 prochlorperazine maleate 10 mg tablet 10 mg PO TID PRN PRN nausea/vomiting 03/03/25 Hospital Course Operations None Procedures None Summary of Care Provided Minutes Spent on Discharge: 45 Hospital Course: Patient is a 29 year old female with a PMH as outlined who was admitted via the ED on 03/19/2025 with a complaint of elevated blood sugar. She has a past medical history significant for type 1 diabetes mellitus and is frequently in the hospital for DKA. She complained of nausea and vomiting on the day of admission. She was evaluated and sent to the ED due to concerns for DKA. On admission WBC was elevated at 34,000 and sodium was 128. Potassium was 5.4 and blood glucose level was 561 with an anion gap of 37. She was admitted to the ICU and managed for acute DKA in the setting of type 1 diabetes mellitus with noncompliance. She was started on insulin drip. Critical care was consulted. Patient had a history of noncompliance as stated. Her anion gap eventually closed and blood sugars trended downwards. She was switched to her insulin pump dose. She was started on a diet and tolerated. She still had nausea which was chronic due to gastroparesis. She was discharged home on 03/19/2025. She is follow-up with her primary care doctor and with her senior clinical project manager within 1 to 2 weeks. Patient seen and examined prior to discharge. She was able to eat breakfast though she complained of her chronic nausea. Review of systems otherwise negative. Labs and vitals reviewed. Medication reviewed and reconciled. Physical Exam Const alert, oriented x3 and no apparent distress General Appearance: cooperative and comfortable Orientation / Consciousness: awake HEENT normocephalic, head/scalp atraumatic and hearing grossly normal bilaterally Mouth: oral and palatal mucosa normal Eyes PERRL and EOMs intact bilaterally Neck no lymphadenopathy and supple Lymph Lymphatic: no lymphadenopathy noted Resp normal respiratory effort, normal air movement and clear to auscultation bilaterally Effort and Inspection: tachypneic Cardio regular rate, regular rhythm, S1 normal heart sound, S2 normal heart sound and no murmurs Rate: tachycardic GI normal to inspection, nondistended, normoactive bowel sounds, soft to palpation, non-tender and non-distended Extremity normal to inspection, full ROM, normal capillary refill, no clubbing, cyanosis or edema and no calf tenderness General Extremity: no tenderness to palpation of joints or extremities Skin no rashes or lesions noted General Skin Exam: no breakdown Neuro oriented x3, CN's II-XII intact bilaterally, moves all extremities, no focal motor deficits and no sensory deficits noted Motor Exam: general weakness Psych thought process normal Mood & Affect: flat affect Weight / BMI Weight Weight: 154 lb 8.705 oz Body Mass Index (BMI) 22.8 ABG / Lab / Microbiology Data 03/19/25 06:51 03/19/25 06:51 Laboratory: Laboratory Results - last 24 hr 03/18/25 16:13: POC Glucose 139 H 03/18/25 16:15: Sodium 138, Potassium 3.8, Chloride 109 H, Carbon Dioxide 16.1 L, Anion Gap 12, BUN 6, Creatinine 0.75, Estim Creat Clear Calc 114.62, Est GFR (MDRD) Non-Af 110, BUN/Creatinine Ratio 8.4 L, Glucose 142 H, Calcium 8.6 03/18/25 16:56: POC Glucose 134 H 03/18/25 21:59: POC Glucose 263 H 03/19/25 04:09: POC Glucose 256 H 03/19/25 06:51: WBC 17.3 H, RBC 4.60, Hgb 13.5, Hct 40.2, MCV 87.4, MCH 29.3, MCHC 33.6, RDW Std Deviation 43.9, RDW Coeff of Joyce 13.8, Plt Count 165, MPV 11.7, Immature Gran % (Auto) 1.100 H, Neut % (Auto) 88.6 H, Lymph % (Auto) 6.8 L, Young % (Auto) 3.2, Eos % (Auto) 0.0, Baso % (Auto) 0.3, Absolute Neuts (auto) 15.3 H, Absolute Lymphs (auto) 1.18, Nucleated RBC % 0, Sodium 133, Potassium 4.0, Chloride 99, Carbon Dioxide 9.9 L*, Anion Gap 24 H, BUN 7, Creatinine 0.81, Estim Creat Clear Calc 106.13, Est GFR (MDRD) Non-Af 101, BUN/Creatinine Ratio 8.5 L, Glucose 352 H, Calcium 8.8, Phosphorus 1.7 L, Magnesium 1.8 D/C Instructions Discharge Activity: Return to Normal Activity Weight Bearing Status: Weight bearing as tolerated Call your doctor if you observe: Fever of 101 or Higher, Shortness of breath, Dizziness, Swelling in the ankles and - (poorly controlled blood sugars) DC O2, CPAP, BIPAP Needs Home O2 Discharge instructions: No DC home with Oxygen: No Meaningful Use Info Meaningful Use Meaningful Use Diagnoses (Choose all that apply): None applicable Discharge Plan Admission Admit Date/Time: 03/17/25 23:39 Primary Reason for Your Visit: DKA Attending Provider: Vita Jefferson Primary Care Provider: Jaime Barbour [facility] Consulting Providers: Siddharth Saucedo; Pa Woo; Yosvany Anders; Lino Helton; Umair Hayes; Horacio Washburn; Roberto Rivera; Sukhdev Temple; Siri Cedeno; Balwinder Del Rio; Valdo Jeff; Lul Gamez; Sarah Walters; Jean Paul Bae; Paris Mendoza; Chase Cooper; Godwin Avilez; Aleksander Gaviria; Sedrick James; Nelda Hopper; Vu Strauss; Jose A Anderson; Harman Roche; Lenny Klein Instructions Patient Instructions: Ketoacidosis Ch Discharge Orders/Prescriptions Prescriptions: Continued gabapentin 300 mg capsule 600 mg PO BID (DME) pen needle, diabetic [Ultra-Thin II Ins Pen [place]] 29 gauge x 1/2 needle See Rx Instructions .Route Qty: 100 0RF Rx Instructions: As directed Skyrizi 150 mg/mL pen injector 150 mg subcut .[id number] albuterol sulfate [Ventolin HFA] 90 mcg/actuation HFA aerosol inhaler 1 - 2 puff inhalation Q4H PRN PRN (Reason: Wheezing) Qty: 1 0RF cholecalciferol (vitamin D3) 1,250 mcg (50,000 unit) capsule 1,250 mcg PO QWEEK Trulance 3 mg tablet 3 mg PO DAILY haloperidol 5 mg tablet 5 mg PO TID PRN (Reason: nausea and vomiting) Qty: 20 0RF Rx Instructions: Take 1/2-1 3 times a day as needed nausea and vomiting prochlorperazine maleate 10 mg tablet 10 mg PO TID PRN PRN (Reason: nausea/vomiting) insulin lispro [Humalog U-100 Insulin] 100 unit/mL solution See Rx Instructions .ROUTE .COMPLEX Qty: 10 4RF Rx Instructions: 100 U VIA PUMP DAILY; BASAL RATE - 1.8 UNITS/HOUR BOLUS: CARB RATIO- 1 UNIT /10 GRAMS OF CARBS CORRECTION- 1 UNIT FOR EVERY 30MG/DL BLOOD GLUCOSE OVER 120 Insulin Basal Pump (Pt's Own) [Pump, Basal] 1.8 unit subcut UD Qty: 0 0RF promethazine 25 mg tablet 50 mg PO Q6H PRN (Reason: nausea and vomiting) Rx Instructions: one or two every six hours for nausea quetiapine 50 mg tablet extended release 24 hr 50 mg PO QHS doxepin 6 mg tablet 6 mg PO QHS Referrals / Follow Up: Jaime Barbour [facility], NUCLEAR WEAPONS SPECIALIST-C [Primary Care Provider] - Within 1 Week Disposition Disposition (needs filled in before D/C Order can be placed): Home, Self Care Charges/Coding Visit Charges Inpatient E&M: 23282 Disch Hosp >30min
--- NOTE | 2025-03-19 10:46 | CASEMGMT ---
Addendum entered by Violet Bello 03/19/25 11:26: Pt's Direction Home CM returns call and requests pt DC instructions to be faxed to the CM. DC Instructions successfully faxed to the CM at this time. The CM denies further needs now. Original Note: Pt has an order for DC placed. RN CM to the pt's room at this time. Pt states that she is ready for DC home today with her family ([place] and [place]). Pt again states that she has all of the education and equipment that she needs to care for her diabetes accordingly. Pt states that she still plans to follow up with her stucco laborer at the end of the month. Pt states that she has transportation through her neighbor and public transportation services. Pt was also educated about [facility] Transportation Services. Pt denies any further questions, concerns, or DC needs. Pt's RN updated. TC to the pt's Direction Home CM again. No answer. Another VM left with pt's DC plan. No further needs identified.
--- NOTE | 2025-03-19 10:53 | PHA.DC.MR.R ---
Pharmacy [place] Med Reconciliation Pharmacy Service has performed discharge medication reconciliation for this patient. The patient's discharge medication list was reviewed for discrepancies and discrepancies were resolved. Medications at Discharge Home Medications pen needle, diabetic 29 gauge x 1/2 (Ultra-Thin II Insulin Pen [place]) #100 ea 08/10/23 risankizumab-rzaa 150 mg/mL subcutaneous pen injector (Skyrizi) 150 mg subcut .[id number] PSORIASIS 02/07/24 Insulin Basal Pump (Pt's Own) [Pump, Basal] 1.8 unit subcut UD diabetes ##0 06/11/24 albuterol sulfate 90 mcg/actuation aerosol inhaler (Ventolin HFA) 1 - 2 puff inhalation Q4H PRN PRN Wheezing ##1 08/01/24 doxepin 6 mg tablet 6 mg PO QHS insomnia 10/18/24 promethazine 25 mg tablet 50 mg PO Q6H PRN nausea and vomiting 10/18/24 quetiapine 50 mg tablet,extended release 24 hr 50 mg PO QHS mood 10/18/24 cholecalciferol (vitamin D3) 1,250 mcg (50,000 unit) capsule 1,250 mcg PO QWEEK 12/14/24 plecanatide 3 mg tablet (Trulance) 3 mg PO DAILY 12/14/24 haloperidol 5 mg tablet 5 mg PO TID PRN nausea and vomiting #20 tabs 12/16/24 gabapentin 300 mg capsule 600 mg PO BID 01/08/25 insulin lispro 100 unit/mL subcutaneous solution (Humalog U-100 Insulin) See Rx Instructions .Route .COMPLEX #10 mL 01/26/25 prochlorperazine maleate 10 mg tablet 10 mg PO TID PRN PRN nausea/vomiting 03/03/25
== END 2025-03-19 11:05 | disposition home or self-care (01) | DRG 638 ==
LOC: ED 23:17 → ICU 23:40
PROVIDERS: Family Medicine; Admitting Provider Family Medicine; Emergency Provider Emergency Medicine; Visit Provider Student in an Organized Health Care Education/Training Program
DX: E10.10 Type 1 diabetes mellitus with ketoacidosis without coma (principal); Q87.40 Marfan syndrome, unspecified; E10.43 Type 1 diabetes mellitus with diabetic autonomic (poly)neuropathy; D72.829 Elevated white blood cell count, unspecified; F17.290 Nicotine dependence, other tobacco product, uncomplicated; F43.10 Post-traumatic stress disorder, unspecified; F60.3 Borderline personality disorder; K31.84 Gastroparesis; Z79.4 Long term (current) use of insulin; L40.9 Psoriasis, unspecified; X58.XXXA Exposure to other specified factors, initial encounter; Z91.199 Patient's noncompliance with other medical treatment and regimen due to unspecified reason; Z96.41 Presence of insulin pump (external) (internal); Z79.899 Other long term (current) drug therapy
CPT/HCPCS: 36415; 71045; 80048; 80053; 82010; 82803; 82962; 83690; 83735; 84100; 84703; 85025; 99285; A4216

== ENCOUNTER 2025-05-03 17:08 | Inpatient (IN) | payer MEDICARE, MEDICAID, SELFPAY ==
[2025-05-03] VITALS (8 sets, daily range): BP systolic 114–140; BP diastolic 48–106; PULSE 47–103; RESP 8–22; TEMP 36.5–36.9; O2SAT 92–100; BMI 28.0
--- NOTE | 2025-05-03 17:43 | EX.ED.DYSGE1 ---
HPI History of Present Illness Chief Complaint: Hyperglycemia Detail of Chief Complaint: Hyperglycemia Informant: patient Narrative Narrative: Patient presents with hyperglycemia that was noted today. Patient is a type I diabetic. She states her blood sugar was about 150 around noon before going to the [facility]. She then started not feeling well and started vomiting around 3 PM. Patient states that she has high ketones. She is worried she is going into DKA. She used to have an insulin pump but it kept occluding so she switched to her emergency medications. She is been taking her insulin. Denies recent illness. [facility] Medical History (Updated 05/03/25 @ 19:[address] Loki Soria, DO) Leukocytosis Hx of diabetic gastroparesis Diabetic keto-acidosis Intractable nausea and vomiting DKA, type 1 Insulin dependent diabetes mellitus Wears glasses Marijuana use Syncope Gastroparesis Electronic cigarette use History of echocardiogram History of stress test Cardiology follow-up encounter Metabolic acidosis Vomiting delivery delivered History of marijuana use Hx of diabetic gastroparesis Diabetes mellitus with hyperglycemia Intractable cyclical vomiting with nausea Depression Compensated metabolic acidosis Dysuria UTI (urinary tract infection) Hypokalemia Type 1 diabetes Metabolic acidosis Leukocytosis Intractable abdominal pain Intractable nausea and vomiting Panic disorder Major depressive disorder, recurrent severe without psychotic features Diabetic gastroparesis Substance abuse Kidney stones Kidney disease Smoker Intractable vomiting Type 1 diabetes Marfan syndrome PTSD (post-traumatic stress disorder) Borderline personality disorder Home Medications ?Medication ?Instructions ?Recorded ?Last Taken ?Type pen needle, diabetic 29 gauge x #100 ea 08/10/23 Unknown Rx 1/2 (Ultra-Thin II Insulin Pen [place]) risankizumab-rzaa 150 mg/mL 150 mg subcut .[id number] PSORIASIS 02/07/24 02/03/25 History subcutaneous pen injector (Skyrizi) Insulin Basal Pump (Pt's Own) 1.8 unit subcut UD diabetes ##0 06/11/24 03/05/25 Rx [Pump, Basal] albuterol sulfate 90 mcg/actuation 1 - 2 puff inhalation Q4H PRN PRN 08/01/24 Unknown Rx aerosol inhaler (Ventolin HFA) Wheezing ##1 doxepin 6 mg tablet 6 mg PO QHS insomnia 10/18/24 03/04/25 History promethazine 25 mg tablet 50 mg PO Q6H PRN nausea and 10/18/24 Unknown History vomiting quetiapine 50 mg tablet,extended 50 mg PO QHS mood 10/18/24 03/04/25 History release 24 hr cholecalciferol (vitamin D3) 1,250 1,250 mcg PO QWEEK 12/14/24 02/26/25 History mcg (50,000 unit) capsule plecanatide 3 mg tablet (Trulance) 3 mg PO DAILY 12/14/24 03/02/25 History haloperidol 5 mg tablet 5 mg PO TID PRN nausea and 12/16/24 03/04/25 Rx vomiting #20 tabs gabapentin 300 mg capsule 600 mg PO BID 01/08/25 03/04/25 History insulin lispro 100 unit/mL See Rx Instructions .Route 01/26/25 03/05/25 Rx subcutaneous solution (Humalog .COMPLEX #10 mL U-100 Insulin) prochlorperazine maleate 10 mg 10 mg PO TID PRN PRN 03/03/25 Unknown History tablet nausea/vomiting pantoprazole 40 mg tablet,delayed 40 mg PO QDAY #90 tabs 03/31/25 Unknown Rx release Allergy/AdvReac Type Severity Reaction Status Date / Time adhesive tape Allergy Intermediate Rash Verified 05/03/25 17:11 cephalexin (From Keflex) Allergy Intermediate yeast Verified 05/03/25 17:11 infection morphine Allergy Intermediate Rash Verified 05/03/25 17:11 oxycodone (From Percocet) Allergy Intermediate Rash Verified 05/03/25 17:11 ondansetron AdvReac I BLACK Verified 05/03/25 17:11 OUT AND LOSE CONTROL OF MY BLADDER Family History Mother Anxiety and depression Bipolar disorder PCOS (polycystic ovarian syndrome) Father Valvular heart disease Surgical History H/O tubal ligation History of loop recorder Hx of appendectomy Hx of eye surgery H/O aortic root repair Social History household members: spouse Smoking Status: Current every day smoker tobacco type: e-cigarettes Electronic Cigarette Use: with nicotine alcohol intake: never substance use type: marijuana ROS ROS ED Review of Systems ROS Unobtainable: other Constitutional Constitutional ED: Reports lethargy; Denies chills, fever(s), sweats or weight loss Eyes Eyes: Denies blurry vision, change in vision or diplopia ENT ENT ED: Denies rhinorrhea or sore throat Cardiovascular Cardiovascular: Denies chest pain, orthopnea or racing heartbeat Respiratory/Chest Respiratory/Chest: Denies cough, dyspnea, dyspnea on exertion, orthopnea or sputum Gastrointestinal Gastrointestinal: Reports nausea and vomiting; Denies abdominal pain or diarrhea Genitourinary Genitourinary ED: Denies dysuria, hematuria or urinary frequency Musculoskeletal Musculoskeletal: Denies arthralgias, back pain, myalgias or neck pain Integumentary Denies abscess, Abrasions or rash Neurologic Neurologic: Denies headache(s) or weakness Psychiatric Psychiatric: Denies anxiety, depression or suicidal thoughts Endocrine Endocrinology: Denies polydipsia, polyphagia or polyuria Hematologic/Lymphatic Hematologic/Lymphatic: Denies easy bleeding, easy bruising or lymphadenopathy Allergic/Immunologic Allergic/Immunologic ED: Denies mouth swelling, tongue swelling or urticaria EXAM Physical Exam Const Vital Signs: 05/03/25 17:09 05/03/25 17:40 Temperature 98.4 F Temperature Source Oral Pulse Rate 103 H Respiratory Rate 18 Respiratory Effort Normal Non-Labored Blood Pressure 140/106 H Blood Pressure Mean 117 Pulse Ox 97 Oxygen Delivery Method Room Air Positive well nourished and well developed General Appearance ED: well developed and NAD HEENT Reports TM's clear and moist mucous membranes normocephalic and atraumatic; Negative for trauma or tenderness Tympanic Membrane ED: Yes TM's clear Eyes PERRL and EOMs intact bilaterally General Eye ED: Negative for pale conjunctiva or scleral icterus Neck no lymphadenopathy, supple and no JVD General: Negative for tenderness Chest Wall inspection of chest normal and palpation of chest normal Chest: Negative for tenderness Resp normal respiratory effort and clear to auscultation bilaterally Effort and Inspection: Negative for respiratory distress or pain with movement Auscultation: Negative for rhonchi, wheezes or diminished lung sounds Cardio regular rhythm, S1 normal heart sound, S2 normal heart sound and no murmurs; Negative for regular rate Rate: tachycardic Peripheral Pulses: pulses 2+ throughout GI normal to inspection, nondistended, normoactive bowel sounds, soft to palpation, non-tender, non-distended and no masses Back/Spine no CVA tenderness and no thoracic nor lumbar tenderness Extremity normal to inspection General Extremety ED: Negative for edema General Extremity: Negative for edema Neuro oriented x3, CN's II-XII intact bilaterally, no sensory deficits noted and gait normal Sensorium / Orientation: awake, alert, oriented to person, oriented to place and oriented to time Motor Exam: strength 5/5 throughout and strength abnormal Psych mental status grossly normal Skin no rashes or lesions noted and no wounds MDM MDM MDM Narrative Medical decision making narrative: Patient presents with vomiting and history of type 1 diabetes. She tells me her glucose has been elevating as well as her ketones. History of DKA. IV line established. She was ordered a liter normal saline fluid bolus. She actually has a port so that was accessed. Patient was given Reglan 5 mg IV. Lab work obtained showed a white count of 16.4 with hemoglobin 14.5 and platelet count of 189. Chemistries unremarkable. Glucose was 314. Anion gap was elevated 22 and potassium was 4.2. Magnesium 2.1. Beta hydroxybutyrate was elevated at 3.2. Urinalysis positive for ketones. Patient was started on an insulin drip. Will discuss with hospitalist to evaluate for admission for DKA. She was given a second dose of Reglan as she continues to vomit. Lab Data Attestation: I reviewed the patient's lab results. Labs: Laboratory Results - last 24 hr 05/03/25 05/03/25 05/03/25 18:30 18:31 18:40 WBC 16.4 H RBC 4.90 Hgb 14.5 Hct 42.6 MCV 86.9 MCH 29.6 MCHC 34.0 RDW Std Deviation 42.6 RDW Coeff of Joyce 13.3 Plt Count 189 MPV 12.1 H Immature Gran % (Auto) 0.500 Neut % (Auto) 85.7 H Lymph % (Auto) 10.4 L [place] % (Auto) 3.0 Eos % (Auto) 0.0 Baso % (Auto) 0.4 Absolute Neuts (auto) 14.0 H Absolute Lymphs (auto) 1.71 Nucleated RBC % 0 Sodium 133 Potassium 4.2 Chloride 99 Carbon Dioxide 12.8 L Anion Gap 22 H BUN 17 Creatinine 0.80 Est GFR (MDRD) Non-Af 102 BUN/Creatinine Ratio 21.6 H Glucose 314 H Calcium 9.7 Magnesium 2.1 b-Hydroxybutyric mmol/L 3.2 H Urine Color Yellow Urine Clarity Clear Urine pH 6.0 Ur Specific Onset 1.025 Urine Protein 100 H Urine Glucose (UA) 1000 H Urine Ketones 150 A* Urine Occult Blood 25 H Urine Nitrite Negative Urine Bilirubin Negative Urine Urobilinogen Normal Ur Leukocyte Esterase Negative Urine RBC 0 SEEN Urine WBC 0 SEEN Ur Squamous Epith Cells 5-10 SEEN Urine Bacteria RARE Urine Mucus 0 SEEN POC Glucose 287 H EKG Initial EKG: Attestation: I personally reviewed and interpreted this EKG as follows: Comments: Sinus rhythm with rate of [address] changes Critical Care Time Critical care time (excluding procedures): 30-74 minutes, Including time spent:, Discussing w/Patient &/or Family/Tobacco Sorter, Discussing w/Consultants, Arranging Admission or Transfer, Performing Direct Patient Care at Bedside and - (30 minutes) Discharge Plan Dx/Rx/DC Orders Clinical Impression: DKA (diabetic ketoacidosis), Vomiting Disposition Disposition: Acute Care [facility]
--- NOTE | 2025-05-03 17:45 | EKG12_ITS ---
Test Reason : DYSRHYTHMIA Blood Pressure : */* mmHG Vent. Rate : 87 BPM Atrial Rate : 87 BPM P-R Int : 124 ms QRS Dur : 78 ms QT Int : 360 ms P-R-T Axes : 66 100 65 degrees QTcB Int : 433 ms Normal sinus rhythm Possible Left atrial enlargement Rightward axis Nonspecific ST abnormality Abnormal ECG Baseline artifact Confirmed by Alfonso Ho ([id number]), fashion editor JHOANA NESBITT ([id number]) on 05/06/2025 5:51:16 AM Referred By: Confirmed By: Alfonso Ho
[2025-05-03] MEDS: 0.9% Normal Saline (1000mL) 1,000 ML 999 ML IV (18:02)
--- OUTSIDE RECORDS SUMMARY | 2025-05-03 18:35 | XMS RPT_ITS | CCD ---
Author Organization [facility] Care Team Providers Care Pricing Director Name Role Phone MEDICAL, CLINIC Unavailable Unavailable TEACH, MTS LUCY Unavailable Unavailable VAMSI MARRUFO Unavailable Unavailable MEDICAL, CLINIC Unavailable Unavailable Latosha Castro Unavailable Unavailab Vamsi Zaidi MD Unavailable [facility] Primary Care Provi benjie PHYSICIAN, PATIENT UNSURE Primary Care Physician Unavailable Kamwesa AOC DIRECTOR INTELLIGENCE OFFICER.Dashawn MALAVE Primary Care Provider Vamsi Cohen MD Unavailable Kamwesa AOC DIRECTOR INTELLIGENCE OFFICER.Dashawn MALAVE Primary Care Provider Vamsi Cohen MD Unavailable [facility] Care Provi benjie Kamwesa AOC DIRECTOR INTELLIGENCE OFFICER.Dashawn MALAVE Primary Care Provider Latosha Castro Unavailable Unavailab Vamsi Zaidi MD Unavailable Kamwesa AOC DIRECTOR INTELLIGENCE OFFICER.Dashawn MALAVE Primary Care Provider Kamwesa AOC DIRECTOR INTELLIGENCE OFFICER.Dashawn MALAVE Primary Care Provider Vivi Smith MD Primary Care Provider Kamwesa AOC DIRECTOR INTELLIGENCE OFFICER.Dashawn MALAVE Primary Care Provider No, Physician Primary [...] Dr. Ileana Lobo Attending Provider Dr. Ileana Loob Other Provider Jamel LOCKE, Alfredo Primary Care Provider Vamsi Cohen MD Unavailable Dr. Ileana Lobo Attending Provider Care Physician, No Primary Primary Care Provider Unavailable Dr. Lin Johansen Emergency Provider Dr. David Smith Admit Provider Dr. David Smith Attending Provider Dr. David Smith Other Provider Dr. Ileana Lobo Attending Provider Dr. Ileana Lobo Other Provider [facility] Primary Care Provider Unav ailDr. Lul Ferrell Emergency Provider Dr. Vamsi Duvall Admit Provider Unavailabl e Dr. Vamsi Duvall Other Provider Unavailabl e Dr. Dangelo Encarnacion Attending Provider [phone] Dr. Dangelo Encarnacion Other Provider [phone] Care Physician, No Primary Primary Care Provider Unavailable Toby SALEEM, Kyara Richter Unavailable Unavailab FUNMILAYO Del Angel Primary Care Provider Dr. Alexandro Garces Emergency Provider Dr. Vita Jefferson Admit Provider Koram, Dr. Vita Rojas Attending Provider [phone] Koram, Dr. Vita Rojas Other Provider Toby SALEEM, Kyara Richter Unavailable Unavailab le Care Physician, No Primary Primary Care Provider Unavailable Dr. Lul Singh Emergency Provider Dr. Vamsi Duvall Admit Provider Unavailvera e Dr. Vamsi Duvall Other Provider Unavailabl e Alysha, Dr. Pierson Attending Provider Dr. Dangelo Encarnacion Other Provider [phone] FUNMILAYO SMITH Primary Care Provider Dr. Alexandro Garces Emergency Provider Koram, Dr. Vita Rojas Admit Provider Korismael, Dr. Vita Rojas Attending Provider Kor, Dr. Vita Rojas Other Provider SMITH, AHMAD KHPATRICIO Primary Care Unavailabl e GREG ZIMMERMAN Attending Unavailable MADONNA TORO Attending Unavailable SMITH, AHMAD KHPATRICIO Primary Care Unavailabl e MADONNA TORO Referring Unavailable SMITH, AHMAD KHPATRICIO Primary Care Unavailabl e SMITH, VIVI BARAHONA Attending Unavailabl e [facility] Primary Care Unavailabl e SMITH, AHKYAngel BARAHONA Primary Care Unavailabl e SMITH, AHKYAngel KHPATRICIO Primary Care Unavailabl e CAMILO CENTENO [...] SMITH, AHMAD KHPATRICIO Primary Care Unavailabl e JESISCA GUERRERO Attending Unavailable SMITH[facility] Primary Care UnavailKVNG Bush Attending Unavailable SMITH[facility] Primary Care Unavailabl e JASON PAREDES Attending Unavailable SMITH, AHKYD [facility] Primary Care Unavailabl e JASON PAREDES Referring Unavailable SMITH[facility] Primary Care Unavailabl e JESSICA GUERRERO Attending Unavailable KVNG LEWIS Referring Unavailable SMITH, [facility] Primary Care Unavailabl e LETICIA HYLTON Attending Unavailable SMITH, [facility] Primary Care Unavailabl e MISHEL ORTEZ Attending Unavailable [facility] Primary Care Unavailable Marc Carl Attending Unavailable Care Physician, No Primary Primary Care Unava ilable Vamsi Duvall Admitting Unavailable Estevan Davis Attending Unavailable Care Physician, No Primary Primary Care Unava ilable Vamsi Duvall Consulting Unavailable Ileana Lobo Consulting Unavailable Ileana Lobo Admitting Unavailable Dangelo Encarnacion Attending Unavailable Beam VSC, [facility] Primary Care Unavailable Beam VSC, [facility] Primary Care Unavailable Vita Jefferson Attending Unavailable Siddharth Saucedo Consulting Unavailable Siddharth Saucedo Admitting Unavailable Pa Woo Consulting Unavailable Yosvany Anders Consulting Unavailable Lino Helton Consulting Unavailable Umair Hayes Consulting Unavailable Vamsi Reese Consulting Unavailable Roberto Rivera Consulting Unavailable Sukhdev Temple Consulting Unavailable Siri Cedeno Consulting UnavailBalwinder Bone Consulting Unavailable Valdo Jeff Consulting Unavailable Lul Gamez Consulting Unavailable Sarah Walters Consulting Unavailable Jean Paul Bae Consulting Unavailable MendozaParis araujo Consulting Unavailable Kenneth, Chase Consulting Unavailable IrEmmanuel garneran Consulting Unavailable Everette, Aleksander Consulting Unavailable Sedrick James Consulting Unavailable Nelda Hopper Consulting Unavailable Vu Strauss Consulting Unavailable Jsoe A Anderson Consulting Unavailable Harman Roche Consulting Unavailable Anita Klein Consulting Unavailable Vita Jefferson Consulting Unavailable Ileana Lobo Consulting Unavailable Ileana Lobo Admitting Unavailable Care Physician, No Primary Primary Care Unava ilable John Knapp Attending Unavailable Kenyetta Suarez Consulting Unavailable Beam [facility]SC, [facility] Primary Care Unavailable Lin Rowe Referring Unavailable Lin Rowe Attending Unavailable Beam VSC, [place] Primary Care Unavailable Laine Garcia Attending Unavailable Beam VSC, [place] Primary Care Unavailable Laine Garcia Attending Unavailable Sergey Islas Attending Unavailable Care Physician, No Primary Primary Care Unava ilable Beam VSC, [place] Primary Care Unavailable Ronny, Vita Crystal Attending Unavailable Siddharth Saucedo Admitting Unavailable Siddharth Saucedo Consulting Unavailable Pa Woo Consulting Unavailable Yosvany Anders Consulting Unavailable Lino Helton Consulting Unavailable Umair Hayes Consulting Unavailable Vamsi Reese Consulting Unavailable Roberto Rivera Consulting Unavailable Sukhdev Temple Consulting Unavailable Siri Cedeno Consulting UnavailBalwinder Bone Consulting Unavailable Valdo Jeff Consulting Unavailable Lul Gamez Consulting Unavailable Sarah Walters Consulting Unavailable AlJean Paul nice Consulting Unavailable MendozaParis araujo Consulting Unavailable KennethElaine portillotam Consulting Unavailable Godwin Avilez Consulting Unavailable Everette, Aleksander Consulting Unavailable Dhesi, Sedrick Consulting Unavailable Nelda Hopper Consulting Unavailable Vu Strauss Consulting Unavailable Jose A Anderson Consulting Unavailable Harman Roche Consulting Unavailable Anita Klein Consulting Unavailable Dangelo Encarnacion Referring Unavailable Dangelo Encarnacion Admitting Unavailable Dangelo Encarnacion Consulting Unavailable Care Physician, No Primary Primary Care Unava ilable John Knapp Attending Unavailable Ronny, Vita Crystal Consulting Unavailable Truman Gee Attending Unavailable Beam VSC, [place] Referring Unavailable Beam VSC, [place] Primary Care Unavailable Edie Bear Attending Unavailable Care Physician, No Primary Primary Care Unava ilable Edie Bear Referring Unavailable Edie Bear Attending Unavailable Care Physician, No Primary Primary Care Unava ilable Edie Bear Referring Unavailable Edie Bear Attending Unavailable Care Physician, No Primary Primary Care Unava ilable Edie Bear Attending Unavailable Edie Bear Referring Unavailable Care Physician, No Primary Primary Care Unava ilable Edie Bear Attending Unavailable Care Physician, No Primary Primary Care Unava ilable Ileana Lobo Consulting Unavailable Ileana Lobo Attending Unavailable Ileana Lobo Admitting Unavailable Beam VSC, [place] Primary Care Unavailable Umair Hayes Attending Unavailable Korismael, Vita Crystal Referring Unavailable Ileana Lobo Admitting Unavailable Ileana Lobo Consulting Unavailable Care Physician, No Primary Primary Care Unava ilable John Knapp Attending Unavailable Kenyetta Suarez Consulting Unavailable John Knapp Consulting Unavailable Kenyetta Suarez Consulting Unavailable Kenyetta Suarez Admitting Unavailable Care Physician, No Primary Primary Care Unava ilable John Knapp Attending Unavailable John Knapp Consulting Unavailable Dangelo Encarnacion Attending Unavailable Dangelo Encarnacion Referring Unavailable Dangelo Encarnacion Admitting Unavailable Dangelo Encarnacion Consulting Unavailable Care Physician, No Primary Primary Care Unava ilable Ronny, Vita Crystal Attending Unavailable Ronny, Vita Crystal Consulting Unavailable John Knapp Attending Unavailable John Knapp Consulting Unavailable David Smith Consulting Unavailable David Smith Attending Unavailable Beam VSC, [place] Primary Care Unavailable David Smith Admitting Unavailable Marc Carl Referring Unavailable Koram, Vita Crystal Attending Unavailable Koram, Vita Crystal Consulting Unavailable Estevan Davis Attending Unavailable Ryan Estevan Consulting Unavailable Ileana Lobo Attending Unavailable Kenyetta Suarez Attending Unavailable Truman Gee Attending Unavailable Beam VSC, [place] Referring Unavailable Beam VSC, [place] Primary Care Unavailable Truman Gee Consulting Unavailable Beam VSC, [place] Primary Care Unavailable Siddharth Saucedo Attending Unavailable White, Ramya L Referring Unavailable White, Ramya L Admitting Unavailable White, Ramya L Consulting Unavailable White, Ramya L Attending Unavailable Care Physician, No Primary Primary Care Unava ilable Beam VSC, [place] Primary Care Unavailable Beam VSC, [place] Referring Unavailable Lin Rowe Attending Unavailable Beam VSC, [place] Referring Unavailable Beam VSC, [place] Primary Care Unavailable Lin Rowe Attending Unavailable Dangelo Encarnacion Admitting Unavailable Beam VSC, [place] Primary Care Unavailable Dangelo Encarnacion Consulting Unavailable Dangelo Encarnacion Attending Unavailable Greg Mon Attending Unavailable Greg Mon Consulting Unavailable Dangelo Encarnacion Attending Unavailable Dangelo Encarnacion Consulting Unavailable Beam VSC, [place] Attending Unavailable Beam VSC, [place] Primary Care Unavailable Kenyetta Suarez Consulting Unavailable Kenyetta Suarez Admitting Unavailable Care Physician, No Primary Primary Care Unava ilable John Knapp Attending Unavailable David Smith Consulting Unavailable [facility] Unavailable David Smith Admitting Unavailable Marc Carl Referring Unavailable Estevan Davis Attending Unavailable Vita Jefferson Consulting Unavailable Care Physician, No Primary Primary Care Unava ilable Chirinos, Rm Attending Unavailable Dangelo Encarnacion Admitting Unavailable [facility] Unavailable Greg Mon Attending Unavailable Dangelo Encarnacion Consulting Unavailable White, Ramya L Referring Unavailable John Knapp Attending Unavailable White Ramya L Consulting Unavailable White, Ramya L Admitting Unavailable Care Physician, No Primary Primary Care Unava ilable Ronny, Vita Crystal Consulting Unavailable Vamsi Duvall Admitting Unavailable Vamsi Duvall Consulting Unavailable Vamsi Duvall Attending Unavailable Care Physician, No Primary Primary Care Unava ilable Stacey Olvin Referring Unavailable Davidson Ibarray Attending Unavailable Care Physician, No Primary Primary Care Unava ilable Estevan Davis Attending Unavailable Ryan, Estevan Consulting Unavailable Kenyetta Suarez Attending Unavailable Lizz Jeffersona Crystal Attending Unavailable Ronny, Vita Crystal Consulting Unavailable John Knapp Attending Unavailable ybarger [facility] Attending [facility] e Care Physician, No Primary Primary Care Unava ilable Allergies Allergy Classification Reported Allergen(s) Allergy Type Date of Onset Reaction(s) Facility Acetaminophen / oxyCODONE (2 sources) Acetaminophen / oxyCODONE Drug Allergy 4 Itching, Rash, Intolerance [facility] Adhesive Tape (1 source) Adhesive Tape Substance Allergy 4 Rash [facility] Cephalosporins (antibiotic) (2 sources) Cephalexin Drug Allergy 4 Other: See Comments [facility] NSAIDs (1 source) Indomethacin Drug Allergy 4 Rash [facility] Ondansetron (2 sources) Ondansetron Drug Allergy 5 Other: See Comments [facility] Opioid Agonists (2 sources) Morphine Drug Allergy 4 Itching, Rash [facility] (20 sources) Acetaminophen / oxyCODONE; Translations: [acetaminophen-ox ycodone] Drug Allergy 4 Rash, Intolerance, Itching [facility] (20 sources) Adhesive Tape; Translations: [ADHESIVE TAPE (ROSINS)] Allergy to substance 4 Rash [facility] (20 sources) Cephalexin; Translations: [cephalexin] Drug Allergy 4 Other: See Comments, Urinary tract infectious disease (disorder) [facility] Work Phone: (20 sources) Morphine; Translations: [morphine] Drug Allergy 4 Rash, Itching [facility] (20 sources) Ondansetron; Translations: [ONDANSETRON HCL (PF)] Drug Allergy 5 Other: See Comments, Other (See Comments) [facility] (1 source) Adhesive Tape Propensity to adverse reactions to substance Redness [facility] (20 sources) Ondansetron; Translations: [ondansetron] Drug Allergy 5 I BLACK OUT AND LOSE CONTROL OF MY BLADDER [facility] (20 sources) Adhesive agent; Translations: [ADHESIVE] Drug Allergy 3 Rash [facility] (20 sources) Indomethacin; Translations: [INDOMETHACIN] Drug Allergy 4 [facility] (2 sources) Adhesive Tape-Silicones; Translations: [ADHESIVE TAPE-SILICONES] Propensity to adverse reactions to drug 3 [facility] (1 source) Ondansetron; Translations: [ONDANSETRON HCL] Drug Allergy 3 [facility] (2 sources) Acetaminophen Drug Allergy 3 [facility] (15 sources) Adhesive Tape; Translations: [adhesive tape] Allergy to substance 3 [facility] (15 sources) oxyCODONE Drug Allergy 3 Itching, Rash [facility] (1 source) Acetaminophen Drug Allergy 3 Itching, Rash [facility] (1 source) Wound Dressing Adhesive Drug Allergy 3 [facility] (1 source) Cephalexin Drug Allergy 5 [facility] (1 source) Morphine Drug Allergy 5 [facility] (1 source) Ondansetron Drug Allergy 5 [facility] (1 source) oxyCODONE Drug Allergy 5 [facility] Repository Medications Current Medications Medication Drug Class(es) Dates Sig (Normalized) Sig (Original) acetaminophen 325 mg / HYDROcodone bitartrate 5 mg oral tablet (2 sources) Opioid Agonist Start: 10-21-2024 take 1 tablet by mouth every six hours as needed for pain HYDROcodone-aceta minophen ([place]) 5-325 MG tablet TAKE 1 TABLET BY [...] on above: Take 1 tablet by marga every 6 hours as needed for pain [...] Active Comment on above: Use as directed [id number] 200 actuat albuterol 0.09 mg/actuat metered dose inhaler (1 source) beta2-Adrenergic Agonist Start: 08-01-20 24 take 1-2 puff(s) by inhalation every four [...] Comment on above: Take 2 tablets by mo ut once daily for 1 day. benzoyl peroxide [...] 12-09-2024 cholecalcifero l (Vitamin D-3) 1.25 MG (01198 UT) capsule Take by mouth 1 (one) [...] / neomycin 3.5 mg/ml / polymyxin b 76390 unt/ml ophthalmic suspension (1 source) Aminoglycoside Antibacterial, [...] oral tablet (20 sources) Antihistamine Start: 04-14-20 22 hydrOXYzine HCl (Atarax) 50 MG tablet 04/14/2022 [...] Diabetes mellitus type 1, controlled, without complications ([facility]) Please inject three times a day with [...] hyperglycemia, with long-term current use of insulin ([facility]) Use in the Insulin Pump for TDD [...] on above: Take 1 capsule by [facility] twice daily with meals. metoclopramide [...] on above: Take 1 tablet by marga every 6 hours as needed. promethazine hydrochloride [...] tablet (13 sources) beta-Adrenergic Santiago Start: 07-28-20 propranolol (Inderal) 20 MG tablet 07/28/2022 Active [...] Indications: Obstruction of central line, initial encounter ([facility]) 2 mL by INTRALUMINAL route one time [...] hyperglycemia, with long-term current use of insulin ([facility]) , Insulin pump status Use 1 [place] in the nose as needed for low [...] subcutaneously for insulin shock. 250.03 Use 1 [place] in the n ose as needed for [...] on above: Take 4 tablets by mo [facility] as needed. heparin (1 source) Unfractionated Heparin, [...] on above: Take 1 capsule by [facility] once daily. Administer on an [...] 500 MG PO EVERY 8 HOURS 12 4 August 10, 2023 1:00am September 20, 2023 [...] 150 MG SC .COMPLEX September 20, 2023 1:00am September [...] above: Take 1 tablet by marga th before meals and at bedtime. sulfamethoxazole 800 [...] [Elevated white blood cell count, unspecified] Onset: 04-14-2025 Chronic Essential hypertension (20 sources) Hypertensive disorder; Translations: [Essential (primary) hypertension] Onset: 09-19-2013 Resolved: 01-08-2014 Chronic Heart valve disorders (2 sources) History of aortic valve replacement; Translations: [Mitral valve prolapse syndrome] Onset: 04-01-2015 11-28-2016 Chronic Comment on above: AV NOT replaced [...] current use of drug therapy; Translations: [Other detention (current) drug therapy] 01-27-2025 Episodic Other aftercare (2 sources) Other detention (current) drug therapy; Translations: [Other detention (current) drug therapy] Onset: 01-27-2025 Episodic Other [...] sources) Constipation, unspecified; Translations: [Constipation, unspecified] Onset: 03-31-2025 Episodic Other gastrointestinal disorders (2 sources) Diarrhea, [...] (change of) liver, not elsewhere classified] Onset: 04-01-2025 Chronic Other nutritional; endocrine; and metabolic disorders (5 sources) Ketosis; 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] 09-20-2023 Chronic Other nutritional; endocrine; and metabolic disorders (1 source) Hypomagnesemia; Translations: [Hypomagnesemia] Onset: 08-05-2024 Chronic Other nutritional; endocrine; and metabolic disorders (1 source) Personal history of other endocrine, nutritional and metabolic disease; Translations: [Personal history of other endocrine, nutritional and metabolic disease] Onset: 04-14-2025 Episodic Other screening for suspected conditions (not [...] Test Name Value Interpretation Reference Range Facility CBC W/Diff, Automatedon 08-0 PATH REV Reviewed Normal [facility] Comment on above: Result Comment: SEE REPORT IN PATIENT'S EMR AMENDED REPORT 03/31/25 1600 PATH REV previously reported as: December Performed By: #### L 100.0100, L500.4050, L501.2450, L700.6800 ####[facility] [address] [place], [address] Gastroenterology Visit Repor ton 03-31-2025 Gastroenterology Visit Report Normal [facility] Basic Metabolic Profile (BMP )on 03-19-2025 CO2 [Moles/Vol] 9.9 mmol/L Invalid Interpretation Code 21.0-32.0 [facility] Comment on above: Result Comment: Crit ical Result(s) Called at: 0737 TO ABRINK by:KCLAPPER??Results read back by same.Critical Result(s) Called at: 0737 TO ABRINK by:KCLAPPER??Results read back by same.Critical Result(s) Called at: by:??Results read back bysame. AMENDED REPORT 03/19/25 0800 CO2 previously reported as: 9.9 *L mmol/LCritical Result(s) Called at: 0737 TO ABRINK by:KCLAPPER??Results read back by same. Performed By: #### L 500.2500, L100.0100 ####[facility] [address] [place], [address] Bedside Glucoseon 03-19-2025 FINGERSTICK GLU 256 mg/dL High 74-106 [facility] Comment on above: Result Comment: EDGAR HUNG OF PATIENT CARE PER NURSING PROTOCOL Performed By: #### L 501.080 ####[facility] [address] [place], [address] CBC W/Diff, Automatedon 02-26 Absolute Lymph 1.18 X10 3/uL Normal 0.83-4.51 [facility] Comment on above: Performed By: #### L 500.2500, L100.0100 ####[facility] [address] [place], [address] Absolute Neut 15.3 X10 3/uL High 2.0-7.7 [facility] Comment on above: Performed By: #### L 500.2500, L100.0100 ####[facility] [address] [place], [address] Basophils/100 WBC (Bld) 0.3 % Normal 0-1 [facility] Comment on above: Performed By: #### L 500.2500, L100.0100 ####[facility] [address] [place], [address] Eosinophils/100 WBC (Bld) 0.0 % Normal 0-5 [facility] Comment on above: Performed By: #### L 500.2500, L100.0100 ####[facility] [address] [place], [address] Erythrocyte distribution width (RBC) [Ratio] 13.8 % Normal 11.6-14.6 [facility] Comment on above: Performed By: #### L 500.2500, L100.0100 ####[facility] [address] [place], [address] Hematocrit (Bld) [Volume fraction] 40.2 % Normal 37-47 [facility] Comment on above: Performed By: #### L 500.2500, L100.0100 ####[facility] [address] [place], [address] Hemoglobin (Bld) [Mass/Vol] 13.5 g/dL Normal 12.0-15.0 [facility] Comment on above: Performed By: #### L 500.2500, L100.0100 ####[facility] [address] [place], [address] IG% 1.100 High 0.0-0.9 [facility] Comment on above: Result Comment: IG% - Immature Granulocytes (promyelocytes, myelocytes andmetamyelocytes) > 1% indicates that a LEFT SHIFT is Present. Performed By: #### L 500.2500, L100.0100 ####[facility] [address] [place], [address] Lymphocytes/100 WBC (Bld) 6.8 % Low 19-41 [facility] Comment on above: Performed By: #### L 500.2500, L100.0100 ####[facility] [address] [place], [address] MCH (RBC) [Entitic mass] 29.3 pg Normal 27.0-32.0 [facility] Comment on above: Performed By: #### L 500.2500, L100.0100 ####[facility] [address] [place], [id number] MCHC (RBC) [Mass/Vol] 33.6 g/dL Normal 32-36 [facility] Comment on above: Performed By: #### L 500.2500, L100.0100 ####[facility] [address] [place], [id number] MCV (RBC) [Entitic vol] 87.4 fL Normal 81-99 [facility] Comment on above: Performed By: #### L 500.2500, L100.0100 ####[facility] [address] [place], [address] Monocytes/100 WBC (Bld) 3.2 % Normal 0-10 [facility] Comment on above: Performed By: #### L 500.2500, L100.0100 ####[facility] [address] [place], [address] Neutrophils/100 WBC (Bld) 88.6 % High 47-70 [facility] Comment on above: Performed By: #### L 500.2500, L100.0100 ####[facility] [address] [place], [address] Nucleated RBC (Bld) [#/Vol] 0 10*3/uL Normal 0-5 [facility] Comment on above: Performed By: #### L 500.2500, L100.0100 ####[facility] [address] [place], [address] Platelet mean volume (Bld) [Entitic vol] 11.7 fL Normal 6.2-12.0 [facility] Comment on above: Performed By: #### L 500.2500, L100.0100 ####[facility] [facility] [address] [place], [address] Platelets (Bld) [#/Vol] 165 10*3/uL Normal 150-450 [facility] Comment on above: Performed By: #### L 500.2500, L100.0100 ####[facility] [address] [place], [address] RBC (Bld) [#/Vol] 4.60 10*6/uL Normal 4.2-5.4 [facility] Comment on above: Performed By: #### L 500.2500, L100.0100 ####[facility] [address] [place], [address] RDW SD 43.9 fl Normal 35.1-43.9 [facility] Comment on above: Performed By: #### L 500.2500, L100.0100 ####[facility] [address] [place], [address] WBC (Bld) [#/Vol] 17.3 10*3/uL High 4.4-11.0 [facility] Comment on above: Performed By: #### L 500.2500, L100.0100 ####[facility] [address] [place], [address] Discharge Instructionon 02-26 Discharge Instruction Normal [facility] Magnesiumon 03-19-2025 Magnesium [Mass/Vol] 1.8 mg/dL Normal 1.5-2.2 [facility] Comment on above: Performed By: #### L 501.2300, L501.5200 ####[facility] [address] [place], [address] Phosphoruson 03-19-2025 Phosphate [Mass/Vol] 1.7 mg/dL Low 2.7-4.5 [facility] Comment on above: Performed By: #### L 501.2300, L501.5200 ####[facility] [address] [place], [address] Basic Metabolic Profile (BMP )on 03-18-2025 BUN/CRE 8.4 RATIO Low 10-20 [facility] Comment on above: Performed By: #### L 500.2500 ####[facility] [address] [place], [address] Calcium [Mass/Vol] 8.6 mg/dL Normal 7.6-11.0 [facility] Comment on above: Performed By: #### L 500.2500 ####[facility] [address] [place], [address] Chloride [Moles/Vol] 109 mmol/L High 98-108 [facility] Comment on above: Performed By: #### L 500.2500 ####[facility] [address] [place], [address] CO2 [Moles/Vol] 16.1 mmol/L Low 21.0-32.0 [facility] Comment on above: Performed By: #### L 500.2500 ####[facility] [address] [place], [address] Creatinine [Mass/Vol] 0.75 mg/dL Normal 0.70-1.20 [facility] Comment on above: Performed By: #### L 500.2500 ####[facility] [address] [place], [address] ECRCL 114.62 ml/min Normal 50-250 [facility] Comment on above: Performed By: #### L 500.2500 ####[facility] [address] [place], [address] GAP 12 Normal 5-15 [facility] Comment on above: Performed By: #### L 500.2500 ####[facility] [address] [place], [address] GFR/1.73 sq M.predicted among non-blacks MDRD (S/P/Bld) [Vol rate/Area] 110 mL/min/{1.73_m2} Normal >60 [facility] Comment on above: Result Comment: mL/m in/1.73m2 CKD-EPI Creatinine Equation (2020) Performed By: #### L 500.2500 ####[facility] [address] [place], [address] Glucose [Mass/Vol] 142 mg/dL High 70-99 [facility] Comment on above: Performed By: #### L 500.2500 ####[facility] [address] [place], [address] Potassium [Moles/Vol] 3.8 mmol/L Normal 3.3-5.1 [facility] Comment on above: Result Comment: Hemo lysis present, Results??could be affected.?? Performed By: #### L 500.2500 ####[facility] [address] [place], [address] Sodium [Moles/Vol] 138 mmol/L Normal 133-145 [facility] Comment on above: Performed By: #### L 500.2500 ####[facility] [address] [place], [address] Urea nitrogen [Mass/Vol] 6 mg/dL Normal 4-19 [facility] Comment on above: Performed By: #### L 500.2500 ####[facility] [address] [place], [address] BUN/CRE 9.9 RATIO Low 10-20 [facility] Comment on above: Performed By: #### L 500.2500 ####[facility] [address] [place], [address] Calcium [Mass/Vol] 8.4 mg/dL Normal 7.6-11.0 [facility] Comment on above: Performed By: #### L 500.2500 ####[facility] [address] [place], [address] Chloride [Moles/Vol] 110 mmol/L High 98-108 [facility] Comment on above: Performed By: #### L 500.2500 ####[facility] [address] [place], [address] CO2 [Moles/Vol] 14.1 mmol/L Low 21.0-32.0 [facility] Comment on above: Performed By: #### L 500.2500 ####[facility] [address] [place], [address] Creatinine [Mass/Vol] 0.74 mg/dL Normal 0.70-1.20 [facility] Comment on above: Performed By: #### L 500.2500 ####[facility] [address] [place], [address] ECRCL 116.17 ml/min Normal 50-250 [facility] Comment on above: Performed By: #### L 500.2500 ####[facility] [address] [place], [address] GAP 14 Normal 5-15 [facility] Comment on above: Performed By: #### L 500.2500 ####[facility] [address] [place], [address] GFR/1.73 sq M.predicted among non-blacks MDRD (S/P/Bld) [Vol rate/Area] 112 mL/min/{1.73_m2} Normal >60 [facility] Comment on above: Result Comment: mL/m in/1.73m2 CKD-EPI Creatinine Equation (2020) Performed By: #### L 500.2500 ####[facility] [address] [place], [address] Glucose [Mass/Vol] 187 mg/dL High 70-99 [facility] Comment on above: Performed By: #### L 500.2500 ####[facility] [address] [place], [address] Potassium [Moles/Vol] 3.9 mmol/L Normal 3.3-5.1 [facility] Comment on above: Performed By: #### L 500.2500 ####[facility] [address] [place], [address] Sodium [Moles/Vol] 138 mmol/L Normal 133-145 [facility] Comment on above: Performed By: #### L 500.2500 ####[facility] [address] [place], [address] Urea nitrogen [Mass/Vol] 7 mg/dL Normal 4-19 [facility] Comment on above: Performed By: #### L 500.2500 ####[facility] [address] [place], [address] BUN/CRE 10.8 RATIO Normal 10-20 [facility] Comment on above: Performed By: #### L 500.2500 ####[facility] [address] [place], [address] Calcium [Mass/Vol] 8.3 mg/dL Normal 7.6-11.0 [facility] Comment on above: Performed By: #### L 500.2500 ####[facility] [address] [place], [address] Chloride [Moles/Vol] 108 mmol/L Normal 98-108 [facility] Comment on above: Performed By: #### L 500.2500 ####[facility] [address] [place], [address] CO2 [Moles/Vol] 10.5 mmol/L Low 21.0-32.0 [facility] Comment on above: Performed By: #### L 500.2500 ####[facility] [address] [place], [address] Creatinine [Mass/Vol] 0.83 mg/dL Normal 0.70-1.20 [facility] Comment on above: Performed By: #### L 500.2500 ####[facility] [address] [place], [address] ECRCL 103.58 ml/min Normal 50-250 [facility] Comment on above: Performed By: #### L 500.2500 ####[facility] [address] [place], [address] GAP 17 High 5-15 [facility] Comment on above: Performed By: #### L 500.2500 ####[facility] [address] [place], [address] GFR/1.73 sq M.predicted among non-blacks MDRD (S/P/Bld) [Vol rate/Area] 98 mL/min/{1.73_m2} Normal >60 [facility] Comment on above: Result Comment: mL/m in/1.73m2 CKD-EPI Creatinine Equation (2020) Performed By: #### L 500.2500 ####[facility] [address] [place], [address] Glucose [Mass/Vol] 219 mg/dL High 70-99 [facility] Comment on above: Performed By: #### L 500.2500 ####[facility] [address] [place], [address] Potassium [Moles/Vol] 4.4 mmol/L Normal 3.3-5.1 [facility] Comment on above: Result Comment: Hemo lysis present, Results??could be affected.?? Performed By: #### L 500.2500 ####[facility] [address] [place], [address] Sodium [Moles/Vol] 136 mmol/L Normal 133-145 [facility] Comment on above: Performed By: #### L 500.2500 ####[facility] [address] [place], [address] Urea nitrogen [Mass/Vol] 9 mg/dL Normal 4-19 [facility] Comment on above: Performed By: #### L 500.2500 ####[facility] [address] [place], [address] BUN/CRE 11.7 RATIO Normal 10-20 [facility] Comment on above: Performed By: #### L 500.2500 ####[facility] [address] [place], [address] Calcium [Mass/Vol] 8.3 mg/dL Normal 7.6-11.0 [facility] Comment on above: Performed By: #### L 500.2500 ####[facility] [address] [place], [address] Chloride [Moles/Vol] 106 mmol/L Normal 98-108 [facility] Comment on above: Performed By: #### L 500.2500 ####[facility] [address] [place], [address] CO2 [Moles/Vol] 7.8 mmol/L Invalid Interpretation Code 21.0-32.0 [facility] Comment on above: Result Comment: Crit ical Result(s) Called at: 0446 by:??JULIÁN AQUINO. Results read back by same. Performed By: #### L 500.2500 ####[facility] [address] [place], [address] Creatinine [Mass/Vol] 0.94 mg/dL Normal 0.70-1.20 [facility] Comment on above: Performed By: #### L 500.2500 ####[facility] [address] [place], [address] ECRCL 91.46 ml/min Normal 50-250 [facility] Comment on above: Performed By: #### L 500.2500 ####[facility] [address] [place], [address] GAP 23 High 5-15 [facility] Comment on above: Performed By: #### L 500.2500 ####[facility] [address] [place], [address] GFR/1.73 sq M.predicted among non-blacks MDRD (S/P/Bld) [Vol rate/Area] 83 mL/min/{1.73_m2} Normal >60 [facility] Comment on above: Result Comment: mL/m in/1.73m2 CKD-EPI Creatinine Equation (2020) Performed By: #### L 500.2500 ####[facility] [address] [place], [address] Glucose [Mass/Vol] 238 mg/dL High 70-99 [facility] Comment on above: Performed By: #### L 500.2500 ####[facility] [address] [place], [address] Potassium [Moles/Vol] 4.7 mmol/L Normal 3.3-5.1 [facility] Comment on above: Result Comment: Hemo lysis present, Results??could be affected.?? Performed By: #### L 500.2500 ####[facility] [address] [place], [address] Sodium [Moles/Vol] 136 mmol/L Normal 133-145 [facility] Comment on above: Performed By: #### L 500.2500 ####[facility] [address] [place], [address] Urea nitrogen [Mass/Vol] 11 mg/dL Normal 4-19 [facility] Comment on above: Performed By: #### L 500.2500 ####[facility] [address] [place], [address] BUN/CRE 13.0 RATIO Normal 10-20 [facility] Comment on above: Performed By: #### L 500.2500 ####[facility] [address] [place], [address] Calcium [Mass/Vol] 8.0 mg/dL Normal 7.6-11.0 [facility] Comment on above: Performed By: #### L 500.2500 ####[facility] [address] [place], [address] Chloride [Moles/Vol] 102 mmol/L Normal 98-108 [facility] Comment on above: Performed By: #### L 500.2500 ####[facility] [address] [place], [address] CO2 [Moles/Vol] 6.1 mmol/L Invalid Interpretation Code 21.0-32.0 [facility] Comment on above: Result Comment: Crit ical Result(s) Called at: 0044 by:??JULIÁN AQUINO. Results read back by same. Performed By: #### L 500.2500 ####[facility] [address] [place], [address] Creatinine [Mass/Vol] 1.06 mg/dL Normal 0.70-1.20 [facility] Comment on above: Performed By: #### L 500.2500 ####[facility] [address] [place], [address] ECRCL 81.10 ml/min Normal 50-250 [facility] Comment on above: Performed By: #### L 500.2500 ####[facility] [address] [place], [address] GAP 26 High 5-15 [facility] Comment on above: Performed By: #### L 500.2500 ####[facility] [address] [place], [address] GFR/1.73 sq M.predicted among non-blacks MDRD (S/P/Bld) [Vol rate/Area] 72 mL/min/{1.73_m2} Normal >60 [facility] Comment on above: Result Comment: mL/m in/1.73m2 CKD-EPI Creatinine Equation (2020) Performed By: #### L 500.2500 ####[facility] [address] [place], [address] Glucose [Mass/Vol] 265 mg/dL High 70-99 [facility] Comment on above: Performed By: #### L 500.2500 ####[facility] [address] [place], [address] Potassium [Moles/Vol] 4.6 mmol/L Normal 3.3-5.1 [facility] Comment on above: Result Comment: Hemo lysis present, Results??could be affected.?? Performed By: #### L 500.2500 ####[facility] [address] [place], [address] Sodium [Moles/Vol] 134 mmol/L Normal 133-145 [facility] Comment on above: Performed By: #### L 500.2500 ####[facility] [address] [place], [address] Urea nitrogen [Mass/Vol] 14 mg/dL Normal 4-19 [facility] Comment on above: Performed By: #### L 500.2500 ####[facility] [address] [place], [address] Bedside Glucoseon 03-18-2025 FINGERSTICK GLU 263 mg/dL High 74-106 [facility] Comment on above: Result Comment: EDGAR HUNG OF PATIENT CARE PER NURSING PROTOCOL Performed By: #### L 501.080 ####[facility] [address] [place], [address] FINGERSTICK GLU 134 mg/dL High 74-106 [facility] Comment on above: Result Comment: EDGAR GEMENT OF PATIENT CARE PER NURSING PROTOCOL Performed By: #### L 501.080 ####[facility] [address] [place], [address] FINGERSTICK GLU 139 mg/dL High 74-106 [facility] Comment on above: Result Comment: EDGAR GEMENT OF PATIENT CARE PER NURSING PROTOCOL Performed By: #### L 501.080 ####[facility] [address] [place], [address] FINGERSTICK GLU 156 mg/dL High 74-106 [facility] Comment on above: Result Comment: EDGAR GEMENT OF PATIENT CARE PER NURSING PROTOCOL Performed By: #### L 501.080 ####[facility] [address] [place], [address] FINGERSTICK GLU 177 mg/dL High [facility]106 [facility] Comment on above: Result Comment: EDGAR GEMENT OF PATIENT CARE PER NURSING PROTOCOL Performed By: #### L 501.080 ####[facility] [address] [place], [address] FINGERSTICK GLU 167 mg/dL High [facility]106 [facility] Comment on above: Result Comment: EDGAR GEMENT OF PATIENT CARE PER NURSING PROTOCOL Performed By: #### L 501.080 ####[facility] [address] [place], [address] FINGERSTICK GLU 171 mg/dL High [address] [place] [address] Comment on above: Result Comment: EDGAR GEMENT OF PATIENT CARE PER NURSING PROTOCOL Performed By: #### L 501.080 ####[facility] [address] [place], [address] FINGERSTICK GLU 176 mg/dL High [facility]106 [facility] Comment on above: Result Comment: EDGAR GEMENT OF PATIENT CARE PER NURSING PROTOCOL Performed By: #### L 501.080 ####[facility] [address] [place], [address] FINGERSTICK GLU 192 mg/dL High 74-106 [facility] Comment on above: Result Comment: EDGAR GEMENT OF PATIENT CARE PER NURSING PROTOCOL Performed By: #### L 501.080 ####[facility] [address] [place], [address] FINGERSTICK GLU 200 mg/dL High 74-106 [facility] Comment on above: Result Comment: EDGAR GEMENT OF PATIENT CARE PER NURSING PROTOCOL Performed By: #### L 501.080 ####[facility] [address] [place], [address] FINGERSTICK GLU 204 mg/dL High -106 [facility] Comment on above: Result Comment: EDGAR GEMENT OF PATIENT CARE PER NURSING PROTOCOL Performed By: #### L 501.080 ####[facility] [address] [place], [address] FINGERSTICK GLU 229 mg/dL High [facility]106 [facility] Comment on above: Result Comment: EDGAR GEMENT OF PATIENT CARE PER NURSING PROTOCOL Performed By: #### L 501.080 ####[facility] [address] [place], [address] FINGERSTICK GLU 218 mg/dL High [facility]106 [facility] Comment on above: Result Comment: EDGAR GEMENT OF PATIENT CARE PER NURSING PROTOCOL Performed By: #### L 501.080 ####[facility] [address] [place], [address] FINGERSTICK GLU 241 mg/dL High 74-106 [facility] Comment on above: Result Comment: EDGAR GEMENT OF PATIENT CARE PER NURSING PROTOCOL Performed By: #### L 501.080 ####[facility] [address] [place], [address] FINGERSTICK GLU 203 mg/dL High -106 [facility] Comment on above: Result Comment: EDGAR GEMENT OF PATIENT CARE PER NURSING PROTOCOL Performed By: #### L 501.080 ####[facility] [address] [place], [address] FINGERSTICK GLU 182 mg/dL High 74-106 [facility] Comment on above: Result Comment: EDGAR GEMENT OF PATIENT CARE PER NURSING PROTOCOL Performed By: #### L 501.080 ####[facility] [address] [place], [address] FINGERSTICK GLU 199 mg/dL High 74-106 [facility] Comment on above: Result Comment: EDGAR GEMENT OF PATIENT CARE PER NURSING PROTOCOL Performed By: #### L 501.080 ####[facility] [address] [place], [address] FINGERSTICK GLU 201 mg/dL High 74-106 [facility] Comment on above: Result Comment: EDGAR GEMENT OF PATIENT CARE PER NURSING PROTOCOL Performed By: #### L 501.080 ####[facility] [address] [place], [address] Consultation - Intensiviston 03-18-2025 Consultation - Motion Picture Director Normal [facility] Bedside Glucoseon 03-17-2025 FINGERSTICK GLU 272 mg/dL High [address] [place] [address] Comment on above: Result Comment: EDGAR GEMENT OF PATIENT CARE PER NURSING PROTOCOL Performed By: #### L 501.080 ####[facility] [address] [place], [address] Beta-Hydroxbytyrateon 2024 BETA-HYDROXYBUT 9.3 mmol/L High 0.0-0.3 [facility] Comment on above: Performed By: #### L 501.6901 ####[facility] [address] [place], [address] Chest 1 View (Portable)on Chest 1 View (Portable) Normal [facility] Comprehensive Metabolic Prof ilon 03-17-2025 Albumin [Mass/Vol] 5.0 g/dL Normal 3.5-5.0 [facility] Comment on above: Performed By: #### L 100.0100, L500.4050, L501.2450, L700.6800 ####[facility] [address] [place], [address] Albumin/Globulin [Mass ratio] 1.9 {ratio} Normal 0.9-2.4 [facility] Comment on above: Performed By: #### L 100.0100, L500.4050, L501.2450, L700.6800 ####[facility] [address] [place], [address] ALK PHOS 123 U/L High 35-104 [facility] Comment on above: Performed By: #### L 100.0100, L500.4050, L501.2450, L700.6800 ####[facility] [address] [place], [address] ALT [Catalytic activity/Vol] 18 U/L Normal <=34 [facility] Comment on above: Performed By: #### L 100.0100, L500.4050, L501.2450, L700.6800 ####[facility] [address] [place], [address] AST [Catalytic activity/Vol] 18 U/L Normal <=31 [facility] Comment on above: Performed By: #### L 100.0100, L500.4050, L501.2450, L700.6800 ####[facility] [address] [place], [address] Bilirubin [Mass/Vol] 0.74 mg/dL Normal 0.00-1.30 [facility] Comment on above: Performed By: #### L 100.0100, L500.4050, L501.2450, L700.6800 ####[facility] [address] [place], [address] BUN/CRE 14.1 RATIO Normal 10-20 [facility] Comment on above: Performed By: #### L 100.0100, L500.4050, L501.2450, L700.6800 ####[facility] [address] [place], [address] Calcium [Mass/Vol] 9.7 mg/dL Normal 7.6-11.0 [facility] Comment on above: Performed By: #### L 100.0100, L500.4050, L501.2450, L700.6800 ####[facility] [address] [place], [address] Chloride [Moles/Vol] 84 mmol/L Low 98-108 [facility] Comment on above: Performed By: #### L 100.0100, L500.4050, L501.2450, L700.6800 ####[facility] [address] [place], [address] CO2 [Moles/Vol] 6.0 mmol/L Invalid Interpretation Code 21.0-32.0 [facility] Comment on above: Result Comment: Crit ical Result(s) Called at: 2137 by:??JULIÁN CHANDLER. Results read back by same. Performed By: #### L 100.0100, L500.4050, L501.2450, L700.6800 ####[facility] [address] [place], [address] Creatinine [Mass/Vol] 1.18 mg/dL Normal 0.70-1.20 [facility] Comment on above: Performed By: #### L 100.0100, L500.4050, L501.2450, L700.6800 ####[facility] [address] [place], [address] ECRCL 72.85 ml/min Normal 50-250 [facility] Comment on above: Performed By: #### L 100.0100, L500.4050, L501.2450, L700.6800 ####[facility] [address] [place], [address] GAP 37 High 5-15 [facility] Comment on above: Performed By: #### L 100.0100, L500.4050, L501.2450, L700.6800 ####[facility] [address] [place], [address] GFR/1.73 sq M.predicted among non-blacks MDRD (S/P/Bld) [Vol rate/Area] 64 mL/min/{1.73_m2} Normal >60 [facility] Comment on above: Result Comment: mL/m in/1.73m2 CKD-EPI Creatinine Equation (2020) Performed By: #### L 100.0100, L500.4050, L501.2450, L700.6800 ####[facility] [address] [place], [address] Globulin (S) [Mass/Vol] 2.7 g/dL Normal 2.2-4.2 [facility] Comment on above: Performed By: #### L 100.0100, L500.4050, L501.2450, L700.6800 ####[facility] [address] [place], [address] Glucose [Mass/Vol] 561 mg/dL Invalid Interpretation Code 70-99 [facility] Comment on above: Result Comment: Crit ical Result(s) Called at: by:??Results read back bysame.Critical Result(s) Called at: 2137 by:??JULIÁN CHANDLER. Results read back by same. Performed By: #### L 100.0100, L500.4050, L501.2450, L700.6800 ####[facility] [address] [place], [address] Potassium [Moles/Vol] 5.4 mmol/L High 3.3-5.1 [facility] Comment on above: Performed By: #### L 100.0100, L500.4050, L501.2450, L700.6800 ####[facility] [address] [place], [address] Sodium [Moles/Vol] 128 mmol/L Low 133-145 [facility] Comment on above: Performed By: #### L 100.0100, L500.4050, L501.2450, L700.6800 ####[facility] [address] [place], [address] T PROT 7.6 g/dL Normal 5.9-8.4 [facility] Comment on above: Performed By: #### L 100.0100, L500.4050, L501.2450, L700.6800 ####[facility] [address] [place], [address] Urea nitrogen [Mass/Vol] 17 mg/dL Normal 4-19 [facility] Comment on above: Performed By: #### L 100.0100, L500.4050, L501.2450, L700.6800 ####[facility] [address] [place], [address] Emergency Department Summary on 03-17-2025 Emergency Department Summary Normal [facility] Lipaseon 03-17-2025 Lipase [Catalytic activity/Vol] 10 U/L Low 13-75 [facility] Comment on above: Result Comment: Sulma schmitz note:LIPASE revised reference range effective 22.New Lipase methodology. Expected to produce lower valuesthan the previous assay method.NEW Reference Range: 13 - 75 U/L Performed By: #### L 100.0100, L500.4050, L501.2450, L700.6800 ####[facility] [address] [place], [address] ,Serum,hCG Quali.on 03-17-2025 HCG, SERUM QUAL Negative [facility] Comment on above: Performed By: #### L 100.0100, L500.4050, L501.2450, L700.6800 ####[facility] [address] [place], [address] Venous Blood Gason 5 Blood Gas Type ISABELLE [facility] Comment on above: Performed By: #### L 9000.0810 ####[facility] [address] [place], [address] CO2 [Moles/Vol] 7 mmol/L Low 23-33 [facility] Comment on above: Performed By: #### L 9000.0810 ####[facility] [address] [place], [address] HCO3 (Bld) [Moles/Vol] 6 mmol/L Low 22-26 [facility] Comment on above: Performed By: #### L 9000.0810 ####[facility] [address] [place], [address] O2 Delivery Dev Room Air [facility] Comment on above: Performed By: #### L 9000.0810 ####[facility] [address] [place], [address] Read Back By Yes [facility] Comment on above: Performed By: #### L 9000.0810 ####[facility] [address] [place], [address] Results To [facility] Comment on above: Performed By: #### L 9000.0810 ####[facility] [address] [place], [address] SITE Not entered [place] [facility] Comment on above: Performed By: #### L 9000.0810 ####[facility] [address] [place], [address] Time Given 20:45:58 Normal [facility] Comment on above: Performed By: #### L 9000.0810 ####[facility] [address] [place], [address] VBG BE -23 mmol/L Low -1.0-3.5 [facility] Comment on above: Performed By: #### L 9000.0810 ####[facility] [address] [place], [address] VBG pCO2 17.3 mmHg Invalid Interpretation Code 41-51 [facility] Comment on above: Performed By: #### L 9000.0810 ####[facility] [address] [place], [address] VBG pH 7.15 Invalid Interpretation Code 7.32-7.42 [facility] Comment on above: Performed By: #### L 9000.0810 ####[facility] [address] [place], [address] VBG PO2 55 mmHg High 25-40 [facility] Comment on above: Performed By: #### L 9000.0810 ####[facility] [address] [place], [address] VBG SO2 80 High 50-70 [facility] Comment on above: Performed By: #### L 9000.0810 ####[facility] [address] [place], [address] Bedside Glucoseon 03-08-2025 FINGERSTICK GLU 252 mg/dL High 74-106 [facility] Comment on above: Result Comment: EDGAR HUNG OF PATIENT CARE PER NURSING PROTOCOL Performed By: #### L 501.080 ####[facility] [address] [place], [address] FINGERSTICK GLU 272 mg/dL High 74-106 [facility] Comment on above: Result Comment: EDGAR HUNG OF PATIENT CARE PER NURSING PROTOCOL Performed By: #### L 501.080 ####[facility] [address] [place], [address] Basic Metabolic Profile (BMP )on 03-07-2025 BUN Normal 4-19 [facility] Comment on above: Result Comment: Canc elled via OM: MD Ordered Performed By: #### L 500.2500 ####[facility] [address] [place], [address] BUN/CRE Normal 10-20 [facility] Comment on above: Result Comment: Canc elled via OM: MD Ordered Performed By: #### L 500.2500 ####[facility] [address] [place], [address] Calcium Normal 7.6-11.0 [facility] Comment on above: Result Comment: Canc elled via OM: MD Ordered Performed By: #### L 500.2500 ####[facility] [address] [place], [address] CL Normal 98-108 [facility] Comment on above: Result Comment: Canc elled via OM: MD Ordered Performed By: #### L 500.2500 ####[facility] [address] [place], [address] CO2 Normal 21.0-32.0 [facility] Comment on above: Result Comment: Canc elled via OM: MD Ordered Performed By: #### L 500.2500 ####[facility] [address] [place], [address] CREAT,SERUM Normal 0.70-1.20 [facility] Comment on above: Result Comment: Canc elled via OM: MD Ordered Performed By: #### L 500.2500 ####[facility] [address] [place], [address] eGFR Normal >60 [facility] Comment on above: Result Comment: Canc elled via OM: MD Ordered Performed By: #### L 500.2500 ####[facility] [address] [place], [address] GAP Normal 5-15 [facility] Comment on above: Result Comment: Canc elled via OM: MD Ordered Performed By: #### L 500.2500 ####[facility] [address] [place], [address] GLU Normal 70-99 [facility] Comment on above: Result Comment: Canc elled via OM: MD Ordered Performed By: #### L 500.2500 ####[facility] [address] [place], [address] Potassium Normal 3.3-5.1 [facility] Comment on above: Result Comment: Canc elled via OM: MD Ordered Performed By: #### L 500.2500 ####[facility] [address] [place], [address] Basic Metabolic Profile (BMP) Normal 133-145 [facility] Comment on above: Result Comment: Canc elled via OM: MD Ordered Performed By: #### L 500.2500 ####[facility] [address] [place], [address] BUN/CRE 8.1 RATIO Low 10-20 [facility] Comment on above: Performed By: #### L 500.2500 ####[facility] [address] [place], [address] Calcium [Mass/Vol] 8.0 mg/dL Normal 7.6-11.0 [facility] Comment on above: Performed By: #### L 500.2500 ####[facility] [address] [place], [address] Chloride [Moles/Vol] 110 mmol/L High 98-108 [facility] Comment on above: Performed By: #### L 500.2500 ####[facility] [address] [place], [address] CO2 [Moles/Vol] 21.4 mmol/L Normal 21.0-32.0 [facility] Comment on above: Performed By: #### L 500.2500 ####[facility] [address] [place], [address] Creatinine [Mass/Vol] 0.58 mg/dL Low 0.70-1.20 [facility] Comment on above: Performed By: #### L 500.2500 ####[facility] [address] [place], [address] ECRCL 148.22 ml/min Normal 50-250 [facility] Comment on above: Performed By: #### L 500.2500 ####[facility] [address] [place], [address] GAP 8 Normal 5-15 [facility] Comment on above: Performed By: #### L 500.2500 ####[facility] [address] [place], [address] GFR/1.73 sq M.predicted among non-blacks MDRD (S/P/Bld) [Vol rate/Area] 125 mL/min/{1.73_m2} Normal >60 [facility] Comment on above: Result Comment: mL/m in/1.73m2 CKD-EPI Creatinine Equation (2020) Performed By: #### L 500.2500 ####[facility] [address] [place], [address] Glucose [Mass/Vol] 113 mg/dL High 70-99 [facility] Comment on above: Performed By: #### L 500.2500 ####[facility] [address] [place], [address] Potassium [Moles/Vol] 3.2 mmol/L Low 3.3-5.1 [facility] Comment on above: Performed By: #### L 500.2500 ####[facility] [address] [place], [address] Sodium [Moles/Vol] 139 mmol/L Normal 133-145 [facility] Comment on above: Performed By: #### L 500.2500 ####[facility] [address] [place], [address] Urea nitrogen [Mass/Vol] 5 mg/dL Normal 4-19 [facility] Comment on above: Performed By: #### L 500.2500 ####[facility] [address] [place], [address] BUN/CRE 9.9 RATIO Low 10-20 [facility] Comment on above: Performed By: #### L 500.2500 ####[facility] [address] [place], [address] Calcium [Mass/Vol] 8.2 mg/dL Normal 7.6-11.0 [facility] Comment on above: Performed By: #### L 500.2500 ####[facility] [address] [place], [address] Chloride [Moles/Vol] 109 mmol/L High 98-108 [facility] Comment on above: Performed By: #### L 500.2500 ####[facility] [address] [place], [address] CO2 [Moles/Vol] 20.2 mmol/L Low 21.0-32.0 [facility] Comment on above: Performed By: #### L 500.2500 ####[facility] [address] [place], [address] Creatinine [Mass/Vol] 0.63 mg/dL Low 0.70-1.20 [facility] Comment on above: Performed By: #### L 500.2500 ####[facility] [address] [place], [address] ECRCL 136.46 ml/min Normal 50-250 [facility] Comment on above: Performed By: #### L 500.2500 ####[facility] [address] [place], [address] GAP 10 Normal 5-15 [facility] Comment on above: Performed By: #### L 500.2500 ####[facility] [address] [place], [address] GFR/1.73 sq M.predicted among non-blacks MDRD (S/P/Bld) [Vol rate/Area] 122 mL/min/{1.73_m2} Normal >60 [facility] Comment on above: Result Comment: mL/m in/1.73m2 CKD-EPI Creatinine Equation (2020) Performed By: #### L 500.2500 ####[facility] [address] [place], [address] Glucose [Mass/Vol] 136 mg/dL High 70-99 [facility] Comment on above: Performed By: #### L 500.2500 ####[facility] [address] [place], [address] Potassium [Moles/Vol] 3.3 mmol/L Normal 3.3-5.1 [facility] Comment on above: Performed By: #### L 500.2500 ####[facility] [address] [place], [address] Sodium [Moles/Vol] 139 mmol/L Normal 133-145 [facility] Comment on above: Performed By: #### L 500.2500 ####[facility] [address] [place], [address] Urea nitrogen [Mass/Vol] 6 mg/dL Normal 4-19 [facility] Comment on above: Performed By: #### L 500.2500 ####[facility] [address] [place], [address] Bedside Glucoseon 03-07-2025 FINGERSTICK GLU 282 mg/dL High 74-106 [facility] Comment on above: Result Comment: EDGAR GEMENT OF PATIENT CARE PER NURSING PROTOCOL Performed By: #### L 501.080 ####[facility] [address] [place], [address] FINGERSTICK GLU 262 mg/dL High 74-106 [facility] Comment on above: Result Comment: EDGAR GEMENT OF PATIENT CARE PER NURSING PROTOCOL Performed By: #### L 501.080 ####[facility] [address] [place], [address] FINGERSTICK GLU 354 mg/dL High 74-106 [facility] Comment on above: Result Comment: EDGAR GEMENT OF PATIENT CARE PER NURSING PROTOCOL Performed By: #### L 501.080 ####[facility] [address] [place], [address] FINGERSTICK GLU 169 mg/dL High 74-106 [facility] Comment on above: Result Comment: EDGAR GEMENT OF PATIENT CARE PER NURSING PROTOCOL Performed By: #### L 501.080 ####[facility] [address] [place], [address] FINGERSTICK GLU 163 mg/dL High 74-106 [facility] Comment on above: Result Comment: EDGAR GEMENT OF PATIENT CARE PER NURSING PROTOCOL Performed By: #### L 501.080 ####[facility] [address] [place], [address] FINGERSTICK GLU 106 mg/dL Normal 74-106 [facility] Comment on above: Result Comment: EDGAR GEMENT OF PATIENT CARE PER NURSING PROTOCOL Performed By: #### L 501.080 ####[facility] [address] [place], [address] FINGERSTICK GLU 88 mg/dL Normal 74-106 [facility] Comment on above: Result Comment: EDGAR GEMENT OF PATIENT CARE PER NURSING PROTOCOL Performed By: #### L 501.080 ####[facility] [address] [place], [address] FINGERSTICK GLU 94 mg/dL Normal 74-106 [facility] Comment on above: Result Comment: EDGAR GEMENT OF PATIENT CARE PER NURSING PROTOCOL Performed By: #### L 501.080 ####[facility] [address] [place], [address] FINGERSTICK GLU 129 mg/dL High 74-106 [facility] Comment on above: Result Comment: EDGAR GEMENT OF PATIENT CARE PER NURSING PROTOCOL Performed By: #### L 501.080 ####[facility] [address] [place], [address] FINGERSTICK GLU 119 mg/dL High 74-106 [facility] Comment on above: Result Comment: EDGAR GEMENT OF PATIENT CARE PER NURSING PROTOCOL Performed By: #### L 501.080 ####[facility] [address] [place], [address] Beta-Hydroxbytyrateon 2024 BETA-HYDROXYBUT 1.2 mmol/L High 0.0-0.3 [facility] Comment on above: Performed By: #### L 501.6901 ####[facility] [address] [place], [address] CBC-Complete Blood Cnt No Di ffon 03-07-2025 Erythrocyte distribution width (RBC) [Ratio] 13.8 % Normal 11.6-14.6 [facility] Comment on above: Performed By: #### L 100.0500 ####[facility] [address] [place], [address] Hematocrit (Bld) [Volume fraction] 33.3 % Low 37-47 [facility] Comment on above: Performed By: #### L 100.0500 ####[facility] [address] [place], [address] Hemoglobin (Bld) [Mass/Vol] 11.0 g/dL Low 12.0-15.0 [facility] Comment on above: Performed By: #### L 100.0500 ####[facility] [address] [place], [address] MCH (RBC) [Entitic mass] 29.6 pg Normal 27.0-32.0 [facility] Comment on above: Performed By: #### L 100.0500 ####[facility] [address] [place], [address] MCHC (RBC) [Mass/Vol] 33.0 g/dL Normal 32-36 [facility] Comment on above: Performed By: #### L 100.0500 ####[facility] [address] [place], [address] MCV (RBC) [Entitic vol] 89.8 fL Normal 81-99 [facility] Comment on above: Performed By: #### L 100.0500 ####[facility] [address] [place], [address] Platelet mean volume (Bld) [Entitic vol] 11.4 fL Normal 6.2-12.0 [facility] Comment on above: Performed By: #### L 100.0500 ####[facility] [address] [place], [address] Platelets (Bld) [#/Vol] 176 10*3/uL Normal 150-450 [facility] Comment on above: Performed By: #### L 100.0500 ####[facility] [address] [place], [address] RBC (Bld) [#/Vol] 3.71 10*6/uL Low 4.2-5.4 [facility] Comment on above: Performed By: #### L 100.0500 ####[facility] [address] [place], [address] RDW SD 45.2 fl High 35.1-43.9 [facility] Comment on above: Performed By: #### L 100.0500 ####[facility] [address] [place], [address] WBC (Bld) [#/Vol] 15.4 10*3/uL High 4.4-11.0 [facility] Comment on above: Performed By: #### L 100.0500 ####[facility] [address] [place], [address] Basic Metabolic Profile (BMP )on 03-06-2025 BUN/CRE 12.3 RATIO Normal 10-20 [facility] Comment on above: Order Comment: Call MD with results STAT Performed By: #### L 500.2500 ####[facility] [address] [place], [address] Calcium [Mass/Vol] 8.3 mg/dL Normal 7.6-11.0 [facility] Comment on above: Order Comment: Call MD with results STAT Performed By: #### L 500.2500 ####[facility] [address] [place], [address] Chloride [Moles/Vol] 107 mmol/L Normal 98-108 [facility] Comment on above: Order Comment: Call MD with results STAT Performed By: #### L 500.2500 ####[facility] [address] [place], [address] CO2 [Moles/Vol] 18.9 mmol/L Low 21.0-32.0 [facility] Comment on above: Order Comment: Call MD with results STAT Performed By: #### L 500.2500 ####[facility] [address] [place], [address] Creatinine [Mass/Vol] 0.68 mg/dL Low 0.70-1.20 [facility] Comment on above: Order Comment: Call MD with results STAT Performed By: #### L 500.2500 ####[facility] [address] [place], [address] ECRCL 126.42 ml/min Normal 50-250 [facility] Comment on above: Order Comment: Call MD with results STAT Performed By: #### L 500.2500 ####[facility] [address] [place], [address] GAP 12 Normal 5-15 [facility] Comment on above: Order Comment: Call MD with results STAT Performed By: #### L 500.2500 ####[facility] [address] [place], [address] GFR/1.73 sq M.predicted among non-blacks MDRD (S/P/Bld) [Vol rate/Area] 120 mL/min/{1.73_m2} Normal >60 [facility] Comment on above: Order Comment: Call MD with results STAT Result Comment: mL/m in/1.73m2 CKD-EPI Creatinine Equation (2020) Performed By: #### L 500.2500 ####[facility] [address] [place], [address] Glucose [Mass/Vol] 199 mg/dL High 70-99 [facility] Comment on above: Order Comment: Call MD with results STAT Performed By: #### L 500.2500 ####[facility] [address] [place], [address] Potassium [Moles/Vol] 3.6 mmol/L Normal 3.3-5.1 [facility] Comment on above: Order Comment: Call MD with results STAT Performed By: #### L 500.2500 ####[facility] [address] [place], [address] Sodium [Moles/Vol] 137 mmol/L Normal 133-145 [facility] Comment on above: Order Comment: Call MD with results STAT Performed By: #### L 500.2500 ####[facility] [address] [place], [address] Urea nitrogen [Mass/Vol] 8 mg/dL Normal 4-19 [facility] Comment on above: Order Comment: Call MD with results STAT Performed By: #### L 500.2500 ####[facility] [address] [place], [address] BUN/CRE 13.8 RATIO Normal 10-20 [facility] Comment on above: Order Comment: Call MD with results STAT Performed By: #### L 500.2500 ####[facility] [address] [place], [address] Calcium [Mass/Vol] 8.3 mg/dL Normal 7.6-11.0 [facility] Comment on above: Order Comment: Call MD with results STAT Performed By: #### L 500.2500 ####[facility] [address] [place], [address] Chloride [Moles/Vol] 105 mmol/L Normal 98-108 [facility] Comment on above: Order Comment: Call MD with results STAT Performed By: #### L 500.2500 ####[facility] [address] [place], [address] CO2 [Moles/Vol] 16.5 mmol/L Low 21.0-32.0 [facility] Comment on above: Order Comment: Call MD with results STAT Performed By: #### L 500.2500 ####[facility] [address] [place], [address] Creatinine [Mass/Vol] 0.70 mg/dL Normal 0.70-1.20 [facility] Comment on above: Order Comment: Call MD with results STAT Performed By: #### L 500.2500 ####[facility] [address] [place], [address] ECRCL 122.81 ml/min Normal 50-250 [facility] Comment on above: Order Comment: Call MD with results STAT Performed By: #### L 500.2500 ####[facility] [address] [place], [address] GAP 15 Normal 5-15 [facility] Comment on above: Order Comment: Call MD with results STAT Performed By: #### L 500.2500 ####[facility] [address] [place], [address] GFR/1.73 sq M.predicted among non-blacks MDRD (S/P/Bld) [Vol rate/Area] 119 mL/min/{1.73_m2} Normal >60 [facility] Comment on above: Order Comment: Call MD with results STAT Result Comment: mL/m in/1.73m2 CKD-EPI Creatinine Equation (2020) Performed By: #### L 500.2500 ####[facility] [address] [place], [address] Glucose [Mass/Vol] 239 mg/dL High 70-99 [facility] Comment on above: Order Comment: Call MD with results STAT Performed By: #### L 500.2500 ####[facility] [address], [address] Potassium [Moles/Vol] 4.0 mmol/L Normal 3.3-5.1 [facility] Comment on above: Order Comment: Call MD with results STAT Performed By: #### L 500.2500 ####[facility] [address] [place], [address] Sodium [Moles/Vol] 136 mmol/L Normal 133-145 [facility] Comment on above: Order Comment: Call MD with results STAT Performed By: #### L 500.2500 ####[facility] [address] [place], [address] Urea nitrogen [Mass/Vol] 10 mg/dL Normal 4-19 [facility] Comment on above: Order Comment: Call MD with results STAT Performed By: #### L 500.2500 ####[facility] [address] [place], [address] BUN/CRE 15.9 RATIO Normal 10-20 [facility] Comment on above: Order Comment: Call MD with results STAT Performed By: #### L 500.2500 ####[facility] [address] [place], [address] Calcium [Mass/Vol] 8.3 mg/dL Normal 7.6-11.0 [facility] Comment on above: Order Comment: Call MD with results STAT Performed By: #### L 500.2500 ####[facility] [address] [place], [address] Chloride [Moles/Vol] 105 mmol/L Normal 98-108 [facility] Comment on above: Order Comment: Call MD with results STAT Performed By: #### L 500.2500 ####[facility] [address] [place], [address] CO2 [Moles/Vol] 13.0 mmol/L Low 21.0-32.0 [facility] Comment on above: Order Comment: Call MD with results STAT Performed By: #### L 500.2500 ####[facility] [address] [place], [address] Creatinine [Mass/Vol] 0.71 mg/dL Normal 0.70-1.20 [facility] Comment on above: Order Comment: Call MD with results STAT Performed By: #### L 500.2500 ####[facility] [address] [place], [address] ECRCL 121.08 ml/min Normal 50-250 [facility] Comment on above: Order Comment: Call MD with results STAT Performed By: #### L 500.2500 ####[facility] [address] [place], [address] GAP 18 High 5-15 [facility] Comment on above: Order Comment: Call MD with results STAT Performed By: #### L 500.2500 ####[facility] [address] [place], [address] GFR/1.73 sq M.predicted among non-blacks MDRD (S/P/Bld) [Vol rate/Area] 117 mL/min/{1.73_m2} Normal >60 [facility] Comment on above: Order Comment: Call MD with results STAT Result Comment: mL/m in/1.73m2 CKD-EPI Creatinine Equation (2020) Performed By: #### L 500.2500 ####[facility] [address] [place], [address] Glucose [Mass/Vol] 220 mg/dL High 70-99 [facility] Comment on above: Order Comment: Call MD with results STAT Performed By: #### L 500.2500 ####[facility] [address] [place], [address] Potassium [Moles/Vol] 4.3 mmol/L Normal 3.3-5.1 [facility] Comment on above: Order Comment: Call MD with results STAT Result Comment: Hemo lysis present, Results??could be affected.?? Performed By: #### L 500.2500 ####[facility] [address] [place], [address] Sodium [Moles/Vol] 136 mmol/L Normal 133-145 [facility] Comment on above: Order Comment: Call MD with results STAT Performed By: #### L 500.2500 ####[facility] [address] [place], [address] Urea nitrogen [Mass/Vol] 11 mg/dL Normal 4-19 [facility] Comment on above: Order Comment: Call MD with results STAT Performed By: #### L 500.2500 ####[facility] [address] [place], [address] BUN/CRE 17.5 RATIO Normal 10-20 [facility] Comment on above: Order Comment: Call MD with results STAT Performed By: #### L 500.2500 ####[facility] [address] [place], [address] Calcium [Mass/Vol] 8.8 mg/dL Normal 7.6-11.0 [facility] Comment on above: Order Comment: Call MD with results STAT Performed By: #### L 500.2500 ####[facility] [address] [place], [address] Chloride [Moles/Vol] 102 mmol/L Normal 98-108 [facility] Comment on above: Order Comment: Call MD with results STAT Performed By: #### L 500.2500 ####[facility] [address] [place], [address] CO2 [Moles/Vol] 11.6 mmol/L Low 21.0-32.0 [facility] Comment on above: Order Comment: Call MD with results STAT Performed By: #### L 500.2500 ####[facility] [address] [place], [address] Creatinine [Mass/Vol] 0.85 mg/dL Normal 0.70-1.20 [facility] Comment on above: Order Comment: Call MD with results STAT Performed By: #### L 500.2500 ####[facility] [address] [place], [address] ECRCL 101.14 ml/min Normal 50-250 [facility] Comment on above: Order Comment: Call MD with results STAT Performed By: #### L 500.2500 ####[facility] [address] [place], [address] GAP 22 High 5-15 [facility] Comment on above: Order Comment: Call MD with results STAT Performed By: #### L 500.2500 ####[facility] [address] [place], [address] GFR/1.73 sq M.predicted among non-blacks MDRD (S/P/Bld) [Vol rate/Area] 94 mL/min/{1.73_m2} Normal >60 [facility] Comment on above: Order Comment: Call MD with results STAT Result Comment: mL/m in/1.73m2 CKD-EPI Creatinine Equation (2020) Performed By: #### L 500.2500 ####[facility] [address] [place], [address] Glucose [Mass/Vol] 317 mg/dL High 70-99 [facility] Comment on above: Order Comment: Call MD with results STAT Performed By: #### L 500.2500 ####[facility] [address] [place], [address] Potassium [Moles/Vol] 4.6 mmol/L Normal 3.3-5.1 [facility] Comment on above: Order Comment: Call MD with results STAT Result Comment: Hemo lysis present, Results??could be affected.?? Performed By: #### L 500.2500 ####[facility] [address] [place], [address] Sodium [Moles/Vol] 136 mmol/L Normal 133-145 [facility] Comment on above: Order Comment: Call MD with results STAT Performed By: #### L 500.2500 ####[facility] [address] [place], [address] Urea nitrogen [Mass/Vol] 15 mg/dL Normal 4-19 [facility] Comment on above: Order Comment: Call MD with results STAT Performed By: #### L 500.2500 ####[facility] [address] [place], [address] BUN/CRE 18.2 RATIO Normal 10-20 [facility] Comment on above: Performed By: #### L 500.2500, L501.2450, L501.7300, L100.0100, L500.3400 ####[facility] [address] [place], [address] Calcium [Mass/Vol] 9.3 mg/dL Normal 7.6-11.0 [facility] Comment on above: Performed By: #### L 500.2500, L501.2450, L501.7300, L100.0100, L500.3400 ####[facility] [address] [place], [address] Chloride [Moles/Vol] 95 mmol/L Low 98-108 [facility] Comment on above: Performed By: #### L 500.2500, L501.2450, L501.7300, L100.0100, L500.3400 ####[facility] [address] [place], [address] CO2 [Moles/Vol] 11.4 mmol/L Low 21.0-32.0 [facility] Comment on above: Performed By: #### L 500.2500, L501.2450, L501.7300, L100.0100, L500.3400 ####[facility] [address] [place], [address] Creatinine [Mass/Vol] 0.87 mg/dL Normal 0.70-1.20 [facility] Comment on above: Performed By: #### L 500.2500, L501.2450, L501.7300, L100.0100, L500.3400 ####[facility] [address] [place], [address] ECRCL 98.81 ml/min Normal 50-250 [facility] Comment on above: Performed By: #### L 500.2500, L501.2450, L501.7300, L100.0100, L500.3400 ####[facility] [address] [place], [address] GAP 27 High 5-15 [facility] Comment on above: Performed By: #### L 500.2500, L501.2450, L501.7300, L100.0100, L500.3400 ####[facility] [address] [place], [address] GFR/1.73 sq M.predicted among non-blacks MDRD (S/P/Bld) [Vol rate/Area] 91 mL/min/{1.73_m2} Normal >60 [facility] Comment on above: Result Comment: mL/m in/1.73m2 CKD-EPI Creatinine Equation (2020) Performed By: #### L 500.2500, L501.2450, L501.7300, L100.0100, L500.3400 ####[facility] [address] [place], [address] Glucose [Mass/Vol] 547 mg/dL Invalid Interpretation Code 70-99 [facility] Comment on above: Result Comment: Crit ical Result(s) Called at 0240: by: SUZANNE AGUILERA??Results read back by same. Performed By: #### L 500.2500, L501.2450, L501.7300, L100.0100, L500.3400 ####[facility] [address] [place], [address] Potassium [Moles/Vol] 4.4 mmol/L Normal 3.3-5.1 [facility] Comment on above: Performed By: #### L 500.2500, L501.2450, L501.7300, L100.0100, L500.3400 ####[facility] [address] [place], [address] Sodium [Moles/Vol] 133 mmol/L Normal 133-145 [facility] Comment on above: Performed By: #### L 500.2500, L501.2450, L501.7300, L100.0100, L500.3400 ####[facility] [address] [place], [address] Urea nitrogen [Mass/Vol] 16 mg/dL Normal 4-19 [facility] Comment on above: Performed By: #### L 500.2500, L501.2450, L501.7300, L100.0100, L500.3400 ####[facility] [address] [place], [address] Bedside Glucoseon 03-06-2025 FINGERSTICK GLU 127 mg/dL High 74-106 [facility] Comment on above: Result Comment: EDGAR GEMENT OF PATIENT CARE PER NURSING PROTOCOL Performed By: #### L 501.080 ####[facility] [address] [place], [address] FINGERSTICK GLU 160 mg/dL High 74-106 [facility] Comment on above: Result Comment: EDGAR GEMENT OF PATIENT CARE PER NURSING PROTOCOL Performed By: #### L 501.080 ####[facility] [address] [place], [address] FINGERSTICK GLU 127 mg/dL High 74-106 [facility] Comment on above: Result Comment: EDGAR GEMENT OF PATIENT CARE PER NURSING PROTOCOL Performed By: #### L 501.080 ####[facility] [address] [place], [address] FINGERSTICK GLU 196 mg/dL High 74-106 [facility] Comment on above: Result Comment: EDGAR GEMENT OF PATIENT CARE PER NURSING PROTOCOL Performed By: #### L 501.080 ####[facility] [address] [place], [address] FINGERSTICK GLU 203 mg/dL High 74-106 [facility] Comment on above: Result Comment: Dr Ej foreman FollowedMANAGEMENT OF PATIENT CARE PER NURSING PROTOCOL Performed By: #### L 501.080 ####[facility] [address] [place], [address] FINGERSTICK GLU 231 mg/dL High 74-106 [facility] Comment on above: Result Comment: Dr Ej foreman FollowedMANAGEMENT OF PATIENT CARE PER NURSING PROTOCOL Performed By: #### L 501.080 ####[facility] [address] [place], [address] FINGERSTICK GLU 222 mg/dL High 74-106 [facility] Comment on above: Result Comment: EDGAR GEMENT OF PATIENT CARE PER NURSING PROTOCOL Performed By: #### L 501.080 ####[facility] [address] [place], [address] FINGERSTICK GLU 214 mg/dL High 74-106 [facility] Comment on above: Result Comment: EDGAR GEMENT OF PATIENT CARE PER NURSING PROTOCOL Performed By: #### L 501.080 ####[facility] [address] [place], [address] FINGERSTICK GLU 214 mg/dL High 74-106 [facility] Comment on above: Result Comment: EDGAR GEMENT OF PATIENT CARE PER NURSING PROTOCOL Performed By: #### L 501.080 ####[facility] [address] [place], [address] FINGERSTICK GLU 241 mg/dL High 74-106 [facility] Comment on above: Result Comment: EDGAR GEMENT OF PATIENT CARE PER NURSING PROTOCOL Performed By: #### L 501.080 ####[facility] [address] [place], [address] FINGERSTICK GLU 247 mg/dL High 74-106 [facility] Comment on above: Result Comment: Dr Ej foreman FollowedMANAGEMENT OF PATIENT CARE PER NURSING PROTOCOL Performed By: #### L 501.080 ####[facility] [address] [place], [address] FINGERSTICK GLU 217 mg/dL High [address] [place] [address] Comment on above: Result Comment: EDGAR GEMENT OF PATIENT CARE PER NURSING PROTOCOL Performed By: #### L 501.080 ####[facility] [address] [place], [address] FINGERSTICK GLU 253 mg/dL High -[address] [place] [address] Comment on above: Result Comment: EDGAR GEMENT OF PATIENT CARE PER NURSING PROTOCOL Performed By: #### L 501.080 ####[facility] [address] [place], [address] FINGERSTICK GLU 352 mg/dL High [address] [place] [address] Comment on above: Result Comment: EDGAR GEMENT OF PATIENT CARE PER NURSING PROTOCOL Performed By: #### L 501.080 ####[facility] [address] [place], [address] FINGERSTICK GLU 313 mg/dL High [address] [place] [address] Comment on above: Result Comment: EDGAR GEMENT OF PATIENT CARE PER NURSING PROTOCOL Performed By: #### L 501.080 ####[facility] [address] [place], [address] FINGERSTICK GLU 480 mg/dL Invalid Interpretation Code -[address] [place] [address] Comment on above: Result Comment: EDGAR GEMENT OF PATIENT CARE PER NURSING PROTOCOL Performed By: #### L 501.080 ####[facility] [address] [place], [address] Beta-Hydroxbytyrateon 2024 BETA-HYDROXYBUT 1.7 mmol/L High 0.0-0.3 [facility] Comment on above: Performed By: #### L 501.6901 ####[facility] [address] [place], [address] BETA-HYDROXYBUT 4.2 mmol/L High 0.0-0.3 [facility] Comment on above: Order Comment: FOR N IGHLTY MAINTENANCE, MOVED TO DIFFERENT REQ FOR THATREASON Performed By: #### L 501.6901 ####[facility] [address] [place], [address] CBC W/Diff, Automatedon 02-25 PLT MORPH CLUMPED Normal [facility] Comment on above: Performed By: #### L 100.0100 ####[facility] [address] [place], [address] RED CELL MORPH NORM C+C Normal NORM C C [facility] Comment on above: Performed By: #### L 100.0100 ####[facility] [address] [place], [address] PLT EST ADEQUATE Normal ADEQ [facility] Comment on above: Performed By: #### L 100.0100 ####[facility] [address] [place], [address] SMEAR COMMENT SCANNED Normal [facility] Comment on above: Performed By: #### L 100.0100 ####[facility] [address] [place], [address] Absolute Neut Normal 2.0-7.7 [facility] Comment on above: Result Comment: This specimen has been REJECTED due to Laboratory criteria:Clotted.GENO has been notified of need of recollection.03/06/25 014 [place] Performed By: #### L 500.2500, L501.2450, L501.7300, L100.0100, L500.3400 ####[facility] [address] [place], [address] HCT Normal 37-47 [facility] Comment on above: Result Comment: This specimen has been REJECTED due to Laboratory criteria:Clotted.GENO has been notified of need of recollection.[address] [place] Performed By: #### L 500.2500, L501.2450, L501.7300, L100.0100, L500.3400 ####[facility] [address] [place], [address] HGB Normal 12.0-15.0 [facility] Comment on above: Result Comment: This specimen has been REJECTED due to Laboratory criteria:Clotted.GENO has been notified of need of recollection.03/06/25143 [place] Performed By: #### L 500.2500, L501.2450, L501.7300, L100.0100, L500.3400 ####[facility] [address] [place], [address] MCH Normal 27.0-32.0 [facility] Comment on above: Result Comment: This specimen has been REJECTED due to Laboratory criteria:Clotted.GENO has been notified of need of recollection.03/06/25143 [place] Performed By: #### L 500.2500, L501.2450, L501.7300, L100.0100, L500.3400 ####[facility] [address] [place], [address] MCHC Normal 32-36 [facility] Comment on above: Result Comment: This specimen has been REJECTED due to Laboratory criteria:Clotted.GENO has been notified of need of recollection.03/06/25143 [place] Performed By: #### L 500.2500, L501.2450, L501.7300, L100.0100, L500.3400 ####[facility] [address] [place], [address] MCV Normal 81-99 [facility] Comment on above: Result Comment: This specimen has been REJECTED due to Laboratory criteria:Clotted.GENO has been notified of need of recollection.03/06/25143 [place] Performed By: #### L 500.2500, L501.2450, L501.7300, L100.0100, L500.3400 ####[facility] [address] [place], [address] NEUT% Normal 47-70 [facility] Comment on above: Result Comment: This specimen has been REJECTED due to Laboratory criteria:Clotted.GENO has been notified of need of recollection.03/06/25143 [place] Performed By: #### L 500.2500, L501.2450, L501.7300, L100.0100, L500.3400 ####[facility] [address] [place], [address] PLT Normal 150-450 [facility] Comment on above: Result Comment: This specimen has been REJECTED due to Laboratory criteria:Clotted.GENO has been notified of need of recollection.03/06/25143 [place] Performed By: #### L 500.2500, L501.2450, L501.7300, L100.0100, L500.3400 ####[facility] [address] [place], [address] RBC Normal 4.2-5.4 [facility] Comment on above: Result Comment: This specimen has been REJECTED due to Laboratory criteria:Clotted.GENO has been notified of need of recollection.03/06/25143 [place] Performed By: #### L 500.2500, L501.2450, L501.7300, L100.0100, L500.3400 ####[facility] [address] [place], [address] RDW CV Normal 11.6-14.6 [facility] Comment on above: Result Comment: This specimen has been REJECTED due to Laboratory criteria:Clotted.GENO has been notified of need of recollection.03/06/25143 [place] Performed By: #### L 500.2500, L501.2450, L501.7300, L100.0100, L500.3400 ####[facility] [address] [place], [address] RDW SD Normal 35.1-43.9 [facility] Comment on above: Result Comment: This specimen has been REJECTED due to Laboratory criteria:Clotted.GENO has been notified of need of recollection.03/06/25143 [place] Performed By: #### L 500.2500, L501.2450, L501.7300, L100.0100, L500.3400 ####[facility] [address] [place], [address] WBC Normal 4.4-11.0 [facility] Comment on above: Result Comment: This specimen has been REJECTED due to Laboratory criteria:Clotted.GENO has been notified of need of recollection.03/06/25143 [place] Performed By: #### L 500.2500, L501.2450, L501.7300, L100.0100, L500.3400 ####[facility] [address] [place], [address] Chest PA and Lateralon 03-06 Chest PA and Lateral Normal [facility] Emergency Department Summary on 03-06-2025 Emergency Department Summary Normal [facility] H AND P Exam - Hospitaliston 03-06-2025 H&P Exam - Hospitalist Normal [facility] Lipaseon 03-06-2025 Lipase [Catalytic activity/Vol] 21 U/L Normal 13-75 [facility] Comment on above: Result Comment: Sulma schmitz note:LIPASE revised reference range effective 22.New Lipase methodology. Expected to produce lower valuesthan the previous assay method.NEW Reference Range: 13 - 75 U/L Performed By: #### L 500.2500, L501.2450, L501.7300, L100.0100, L500.3400 ####[facility] [address] [place], [address] Liver Profileon 03-06-2025 Albumin [Mass/Vol] 4.4 g/dL Normal 3.5-5.0 [facility] Comment on above: Performed By: #### L 500.2500, L501.2450, L501.7300, L100.0100, L500.3400 ####[facility] [address] [place], [address] ALK PHOS 85 U/L Normal 35-104 [facility] Comment on above: Performed By: #### L 500.2500, L501.2450, L501.7300, L100.0100, L500.3400 ####[facility] [address] [place], [address] ALT [Catalytic activity/Vol] 11 U/L Normal <=34 [facility] Comment on above: Performed By: #### L 500.2500, L501.2450, L501.7300, L100.0100, L500.3400 ####[facility] [address] [place], [address] AST [Catalytic activity/Vol] 17 U/L Normal <=31 [facility] Comment on above: Performed By: #### L 500.2500, L501.2450, L501.7300, L100.0100, L500.3400 ####[facility] [address] [place], [address] Bilirubin [Mass/Vol] 0.79 mg/dL Normal 0.00-1.30 [facility] Comment on above: Performed By: #### L 500.2500, L501.2450, L501.7300, L100.0100, L500.3400 ####[facility] [address] [place], [address] Bilirubin.direct [Mass/Vol] 0.35 mg/dL High 0.00-0.30 [facility] Comment on above: Performed By: #### L 500.2500, L501.2450, L501.7300, L100.0100, L500.3400 ####[facility] [address] [place], [address] Globulin (S) [Mass/Vol] 2.5 g/dL Normal 2.2-4.2 [facility] Comment on above: Performed By: #### L 500.2500, L501.2450, L501.7300, L100.0100, L500.3400 ####[facility] [address] [place], [address] T PROT 6.9 g/dL Normal 5.9-8.4 [facility] Comment on above: Performed By: #### L 500.2500, L501.2450, L501.7300, L100.0100, L500.3400 ####[facility] [address] [place], [address] Osmolality, Serumon 03-06-20 25 OSMOLALITY,SER 325 mOsm/KG High 275-295 [facility] Comment on above: Performed By: #### L 500.2500, L501.2450, L501.7300, L100.0100, L500.3400 ####[facility] [address] [place], [address] Venous Blood Gason 5 VBG pCO2 8.2 mmHg Invalid Interpretation Code 41-51 [facility] Comment on above: Performed By: #### L 9000.0810 ####[facility] [address] [place], [address] Bedside Glucoseon 5 FINGERSTICK GLU 91 mg/dL Normal 74-106 [facility] Comment on above: Result Comment: EDGAR HUNG OF PATIENT CARE PER NURSING PROTOCOL Performed By: #### L 501.080 ####[facility] [address] [place], [address] Colonoscopy Reporton 07-09-2 025 Colonoscopy Report Normal [facility] EGD Reporton 03-05-2025 EGD Report Normal [facility] Immunohistochemical Stainson 03-05-2025 Immunohistochemical Stains Normal [facility] Comment on above: Performed By: #### P IMHI ####[facility] [address] [place], [address] MR/POSTOP.ANEon 03-05-2025 MR/POSTOP.ANE Normal [facility] MR/HDCUBSMA1hj 03-05-2025 MR/POSTOPAN2 Normal [facility] MR/PAT.ANEon 03-04-2025 MR/PAT.ANE Normal [facility] CBC W/Diff, Automatedon Absolute Lymph 2.23 X10 3/uL Normal 0.83-4.51 [facility] Comment on above: Performed By: #### L 500.4050, L501.5200, L100.0100 ####[facility] [address] [place], [address] Absolute Neut 9.6 X10 3/uL High 2.0-7.7 [facility] Comment on above: Performed By: #### L 500.4050, L501.5200, L100.0100 ####[facility] [address] [place], [address] Basophils/100 WBC (Bld) 0.4 % Normal 0-1 [facility] Comment on above: Performed By: #### L 500.4050, L501.5200, L100.0100 ####[facility] [address] [place], [address] Eosinophils/100 WBC (Bld) 2.7 % Normal 0-5 [facility] Comment on above: Performed By: #### L 500.4050, L501.5200, L100.0100 ####[facility] [address] [place], [address] Erythrocyte distribution width (RBC) [Ratio] 13.7 % Normal 11.6-14.6 [facility] Comment on above: Performed By: #### L 500.4050, L501.5200, L100.0100 ####[facility] [address] [place], [address] Hematocrit (Bld) [Volume fraction] 43.5 % Normal 37-47 [facility] Comment on above: Performed By: #### L 500.4050, L501.5200, L100.0100 ####[facility] [address] [place], [address] Hemoglobin (Bld) [Mass/Vol] 14.2 g/dL Normal 12.0-15.0 [facility] Comment on above: Performed By: #### L 500.4050, L501.5200, L100.0100 ####[facility] [address] [place], [address] IG% 1.800 High 0.0-0.9 [facility] Comment on above: Result Comment: IG% - Immature Granulocytes (promyelocytes, myelocytes andmetamyelocytes) > 1% indicates that a LEFT SHIFT is Present. Performed By: #### L 500.4050, L501.5200, L100.0100 ####[facility] [address] [place], [address] Lymphocytes/100 WBC (Bld) 17.1 % Low 19-41 [facility] Comment on above: Performed By: #### L 500.4050, L501.5200, L100.0100 ####[facility] [address] [place], [address] MCH (RBC) [Entitic mass] 29.3 pg Normal 27.0-32.0 [facility] Comment on above: Performed By: #### L 500.4050, L501.5200, L100.0100 ####[facility] [address] [place], [address] MCHC (RBC) [Mass/Vol] 32.6 g/dL Normal 32-36 [facility] Comment on above: Performed By: #### L 500.4050, L501.5200, L100.0100 ####[facility] [address] [place], [address] MCV (RBC) [Entitic vol] 89.9 fL Normal 81-99 [facility] Comment on above: Performed By: #### L 500.4050, L501.5200, L100.0100 ####[facility] [address] [place], [address] Monocytes/100 WBC (Bld) 4.6 % Normal 0-10 [facility] Comment on above: Performed By: #### L 500.4050, L501.5200, L100.0100 ####[facility] [address] [place], [address] Neutrophils/100 WBC (Bld) 73.4 % High 47-70 [facility] Comment on above: Performed By: #### L 500.4050, L501.5200, L100.0100 ####[facility] [address] [place], [address] Nucleated RBC (Bld) [#/Vol] 0 10*3/uL Normal 0-5 [facility] Comment on above: Performed By: #### L 500.4050, L501.5200, L100.0100 ####[facility] [address] [place], [address] Platelet mean volume (Bld) [Entitic vol] 12.2 fL High 6.2-12.0 [facility] Comment on above: Performed By: #### L 500.4050, L501.5200, L100.0100 ####[facility] [address] [place], [address] Platelets (Bld) [#/Vol] 201 10*3/uL Normal 150-450 [facility] Comment on above: Performed By: #### L 500.4050, L501.5200, L100.0100 ####[facility] [address] [place], [address] RBC (Bld) [#/Vol] 4.84 10*6/uL Normal 4.2-5.4 [facility] Comment on above: Performed By: #### L 500.4050, L501.5200, L100.0100 ####[facility] [address] [place], [address] RDW SD 44.5 fl High 35.1-43.9 [facility] Comment on above: Performed By: #### L 500.4050, L501.5200, L100.0100 ####[facility] [address] [place], [address] WBC (Bld) [#/Vol] 13.1 10*3/uL High 4.4-11.0 [facility] Comment on above: Performed By: #### L 500.4050, L501.5200, L100.0100 ####[facility] [address] [place], [address] Comprehensive Metabolic Prof kyon 02-25-2025 Albumin [Mass/Vol] 4.2 g/dL Normal 3.5-5.0 [facility] Comment on above: Performed By: #### L 500.4050, L501.5200, L100.0100 ####[facility] [address] [place], [address] Albumin/Globulin [Mass ratio] 1.6 {ratio} Normal 0.9-2.4 [facility] Comment on above: Performed By: #### L 500.4050, L501.5200, L100.0100 ####[facility] [address] [place], [address] ALK PHOS 77 U/L Normal 35-104 [facility] Comment on above: Performed By: #### L 500.4050, L501.5200, L100.0100 ####[facility] [address] [place], [address] ALT [Catalytic activity/Vol] 7 U/L Normal <=34 [facility] Comment on above: Performed By: #### L 500.4050, L501.5200, L100.0100 ####[facility] [address] [place], [address] AST [Catalytic activity/Vol] 15 U/L Normal <=31 [facility] Comment on above: Performed By: #### L 500.4050, L501.5200, L100.0100 ####[facility] [address] [place], [address] Bilirubin [Mass/Vol] 0.71 mg/dL Normal 0.00-1.30 [facility] Comment on above: Performed By: #### L 500.4050, L501.5200, L100.0100 ####[facility] [address] [place], [address] BUN/CRE 18.7 RATIO Normal 10-20 [facility] Comment on above: Performed By: #### L 500.4050, L501.5200, L100.0100 ####[facility] [address] [place], [address] Calcium [Mass/Vol] 9.2 mg/dL Normal 7.6-11.0 [facility] Comment on above: Performed By: #### L 500.4050, L501.5200, L100.0100 ####[facility] [address] [place], [address] Chloride [Moles/Vol] 104 mmol/L Normal 98-108 [facility] Comment on above: Performed By: #### L 500.4050, L501.5200, L100.0100 ####[facility] [address] [place], [address] CO2 [Moles/Vol] 20.2 mmol/L Low 21.0-32.0 [facility] Comment on above: Performed By: #### L 500.4050, L501.5200, L100.0100 ####[facility] [address] [place], [address] Creatinine [Mass/Vol] 0.63 mg/dL Low 0.70-1.20 [facility] Comment on above: Performed By: #### L 500.4050, L501.5200, L100.0100 ####[facility] [address] [place], [address] GAP 14 Normal 5-15 [facility] Comment on above: Performed By: #### L 500.4050, L501.5200, L100.0100 ####[facility] [address] [place], [address] GFR/1.73 sq M.predicted among non-blacks MDRD (S/P/Bld) [Vol rate/Area] 122 mL/min/{1.73_m2} Normal >60 [facility] Comment on above: Result Comment: mL/m in/1.73m2 CKD-EPI Creatinine Equation (2020) Performed By: #### L 500.4050, L501.5200, L100.0100 ####[facility] [address] [place], [address] Globulin (S) [Mass/Vol] 2.6 g/dL Normal 2.2-4.2 [facility] Comment on above: Performed By: #### L 500.4050, L501.5200, L100.0100 ####[facility] [address] [place], [address] Glucose [Mass/Vol] 153 mg/dL High 70-99 [facility] Comment on above: Performed By: #### L 500.4050, L501.5200, L100.0100 ####[facility] [address] [place], [address] Potassium [Moles/Vol] 3.9 mmol/L Normal 3.3-5.1 [facility] Comment on above: Performed By: #### L 500.4050, L501.5200, L100.0100 ####[facility] [address] [place], [address] Sodium [Moles/Vol] 138 mmol/L Normal 133-145 [facility] Comment on above: Performed By: #### L 500.4050, L501.5200, L100.0100 ####[facility] [address] [place], [address] T PROT 6.7 g/dL Normal 5.9-8.4 [facility] Comment on above: Performed By: #### L 500.4050, L501.5200, L100.0100 ####[facility] [address] [place], [address] Urea nitrogen [Mass/Vol] 12 mg/dL Normal 4-19 [facility] Comment on above: Performed By: #### L 500.4050, L501.5200, L100.0100 ####[facility] [address] [place], [address] Magnesiumon 02-25-2025 Magnesium [Mass/Vol] 2.2 mg/dL Normal 1.5-2.2 [facility] Comment on above: Performed By: #### L 500.4050, L501.5200, L100.0100 ####[facility] [address] [place], [address] Discharge Instructionon 01-27 Discharge Instruction Normal [facility] Basic Metabolic Profile (BMP )on 02-20-2025 BUN Normal 4-19 [facility] Comment on above: Result Comment: Canc elled via OM: Order cancelled - Patient discharged Performed By: #### L 100.0500, L500.2500 ####[facility] [address] [place], [address] BUN/CRE Normal 10-20 [facility] Comment on above: Result Comment: Canc elled via OM: Order cancelled - Patient discharged Performed By: #### L 100.0500, L500.2500 ####[facility] [address] [place], [address] Calcium Normal 7.6-11.0 [facility] Comment on above: Result Comment: Canc elled via OM: Order cancelled - Patient discharged Performed By: #### L 100.0500, L500.2500 ####[facility] [address] [place], [address] CL Normal 98-108 [facility] Comment on above: Result Comment: Canc elled via OM: Order cancelled - Patient discharged Performed By: #### L 100.0500, L500.2500 ####[facility] [address] [place], [address] CO2 Normal 21.0-32.0 [facility] Comment on above: Result Comment: Canc elled via OM: Order cancelled - Patient discharged Performed By: #### L 100.0500, L500.2500 ####[facility] [address] [place], [address] CREAT,SERUM Normal 0.70-1.20 [facility] Comment on above: Result Comment: Canc elled via OM: Order cancelled - Patient discharged Performed By: #### L 100.0500, L500.2500 ####[facility] [address] [place], [address] eGFR Normal >60 [facility] Comment on above: Result Comment: Canc elled via OM: Order cancelled - Patient discharged Performed By: #### L 100.0500, L500.2500 ####[facility] [address] [place], [address] GAP Normal 5-15 [facility] Comment on above: Result Comment: Canc elled via OM: Order cancelled - Patient discharged Performed By: #### L 100.0500, L500.2500 ####[facility] [address] [place], [address] GLU Normal 70-99 [facility] Comment on above: Result Comment: Canc elled via OM: Order cancelled - Patient discharged Performed By: #### L 100.0500, L500.2500 ####[facility] [address] [place], [address] Potassium Normal 3.3-5.1 [facility] Comment on above: Result Comment: Canc elled via OM: Order cancelled - Patient discharged Performed By: #### L 100.0500, L500.2500 ####[facility] [address] [place], [address] Basic Metabolic Profile (BMP) Normal 133-145 [facility] Comment on above: Result Comment: Canc elled via OM: Order cancelled - Patient discharged Performed By: #### L 100.0500, L500.2500 ####[facility] [address] [place], [address] Bedside Glucoseon 02-20-2025 FINGERSTICK GLU 143 mg/dL High 74-106 [facility] Comment on above: Result Comment: EDGAR HUNG OF PATIENT CARE PER NURSING PROTOCOL Performed By: #### L 501.080 ####[facility] [address] [place], [address] CBC-Complete Blood Cnt No Di ffon 02-20-2025 HCT Normal 37-47 [facility] Comment on above: Result Comment: Canc elled via OM: Order cancelled - Patient discharged Performed By: #### L 100.0500, L500.2500 ####[facility] [address] [place], [address] HGB Normal 12.0-15.0 [facility] Comment on above: Result Comment: Canc elled via OM: Order cancelled - Patient discharged Performed By: #### L 100.0500, L500.2500 ####[facility] [address] [place], [address] MCH Normal 27.0-32.0 [facility] Comment on above: Result Comment: Canc elled via OM: Order cancelled - Patient discharged Performed By: #### L 100.0500, L500.2500 ####[facility] [address] [place], [address] MCHC Normal 32-36 [facility] Comment on above: Result Comment: Canc elled via OM: Order cancelled - Patient discharged Performed By: #### L 100.0500, L500.2500 ####[facility] [address] [place], [address] MCV Normal 81-99 [facility] Comment on above: Result Comment: Canc elled via OM: Order cancelled - Patient discharged Performed By: #### L 100.0500, L500.2500 ####[facility] [address] [place], [address] PLT Normal 150-450 [facility] Comment on above: Result Comment: Canc elled via OM: Order cancelled - Patient discharged Performed By: #### L 100.0500, L500.2500 ####[facility] [address] [place], [address] RBC Normal 4.2-5.4 [facility] Comment on above: Result Comment: Canc elled via OM: Order cancelled - Patient discharged Performed By: #### L 100.0500, L500.2500 ####[facility] [address] [place], [address] RDW CV Normal 11.6-14.6 [facility] Comment on above: Result Comment: Canc elled via OM: Order cancelled - Patient discharged Performed By: #### L 100.0500, L500.2500 ####[facility] [address] [place], [address] RDW SD Normal 35.1-43.9 [facility] Comment on above: Result Comment: Canc elled via OM: Order cancelled - Patient discharged Performed By: #### L 100.0500, L500.2500 ####[facility] [address] [place], [address] WBC Normal 4.4-11.0 [facility] Comment on above: Result Comment: Canc elled via OM: Order cancelled - Patient discharged Performed By: #### L 100.0500, L500.2500 ####[facility] [address] [place], [address] Basic Metabolic Profile (BMP )on 02-19-2025 BUN Normal 4-19 [facility] Comment on above: Result Comment: Canc elled via OM: insulin off Performed By: #### L 500.2500 ####[facility] [address] [place], [address] Order Comment: Call MD with results STAT Result Comment: Canc elled via OM: MD Ordered Result Comment: OM C RUPALI REQUEST BUN/CRE Normal 10-20 [facility] Comment on above: Result Comment: Canc elled via OM: insulin off Performed By: #### L 500.2500 ####[facility] [address] [place], [address] Order Comment: Call MD with results STAT Result Comment: Canc elled via OM: MD Ordered Result Comment: OM C ANCEL REQUEST Calcium Normal 7.6-11.0 [facility] Comment on above: Result Comment: Canc elled via OM: insulin off Performed By: #### L 500.2500 ####[facility] [address] [place], [address] Order Comment: Call MD with results STAT Result Comment: Canc elled via OM: MD Ordered Result Comment: OM C ANCEL REQUEST CL Normal 98-108 [facility] Comment on above: Result Comment: Canc elled via OM: insulin off Performed By: #### L 500.2500 ####[facility] [address] [place], [address] Order Comment: Call MD with results STAT Result Comment: Canc elled via OM: MD Ordered Result Comment: OM C ANCEL REQUEST CO2 Normal 21.0-32.0 [facility] Comment on above: Result Comment: Canc elled via OM: insulin off Performed By: #### L 500.2500 ####[facility] [address] [place], [place], [address] Order Comment: Call MD with results STAT Result Comment: Canc elled via OM: MD Ordered Result Comment: OM C ANCEL REQUEST CREAT,SERUM Normal 0.70-1.20 [facility] Comment on above: Result Comment: Canc elled via OM: insulin off Performed By: #### L 500.2500 ####[facility] [address] [place], [address] Order Comment: Call MD with results STAT Result Comment: Canc elled via OM: MD Ordered Result Comment: OM C ANCEL REQUEST eGFR Normal >60 [facility] Comment on above: Result Comment: Canc elled via OM: insulin off Performed By: #### L 500.2500 ####[facility] [address] [place], [address] Order Comment: Call MD with results STAT Result Comment: Canc elled via OM: MD Ordered Result Comment: OM C ANCEL REQUEST GAP Normal 5-15 [facility] Comment on above: Result Comment: Canc elled via OM: insulin off Performed By: #### L 500.2500 ####[facility] [address] [place], [address] Order Comment: Call MD with results STAT Result Comment: Canc elled via OM: MD Ordered Result Comment: OM C ANCEL REQUEST GLU Normal 70-99 [facility] Comment on above: Result Comment: Canc elled via OM: insulin off Performed By: #### L 500.2500 ####[facility] [address] [place], [address] Order Comment: Call MD with results STAT Result Comment: Canc elled via OM: MD Ordered Result Comment: OM C ANCEL REQUEST Potassium Normal 3.3-5.1 [facility] Comment on above: Result Comment: Canc elled via OM: insulin off Performed By: #### L 500.2500 ####[facility] [address] [place], [address] Order Comment: Call MD with results STAT Result Comment: Canc elled via OM: MD Ordered Result Comment: OM C ANCEL REQUEST Basic Metabolic Profile (BMP) Normal 133-145 [facility] Comment on above: Result Comment: Canc elled via OM: insulin off Performed By: #### L 500.2500 ####[facility] [address] [place], [address] Order Comment: Call MD with results STAT Result Comment: Canc elled via OM: MD Ordered Result Comment: OM C ANCEL REQUEST BUN/CRE 8.8 RATIO Low 10-20 [facility] Comment on above: Performed By: #### L 500.2500 ####[facility] [address] [place], [address] Calcium [Mass/Vol] 8.5 mg/dL Normal 7.6-11.0 [facility] Comment on above: Performed By: #### L 500.2500 ####[facility] [address] [place], [address] Chloride [Moles/Vol] 107 mmol/L Normal 98-108 [facility] Comment on above: Performed By: #### L 500.2500 ####[facility] [address] [place], [address] CO2 [Moles/Vol] 18.6 mmol/L Low 21.0-32.0 [facility] Comment on above: Performed By: #### L 500.2500 ####[facility] [address] [place], [address] Creatinine [Mass/Vol] 0.63 mg/dL Low 0.70-1.20 [facility] Comment on above: Performed By: #### L 500.2500 ####[facility] [address] [place], [address] ECRCL 136.46 ml/min Normal 50-250 [facility] Comment on above: Performed By: #### L 500.2500 ####[facility] [address] [place], [address] GAP 13 Normal 5-15 [facility] Comment on above: Performed By: #### L 500.2500 ####[facility] [address] [place], [address] GFR/1.73 sq M.predicted among non-blacks MDRD (S/P/Bld) [Vol rate/Area] 122 mL/min/{1.73_m2} Normal >60 [facility] Comment on above: Result Comment: mL/m in/1.73m2 CKD-EPI Creatinine Equation (2020) Performed By: #### L 500.2500 ####[facility] [address] [place], [address] Glucose [Mass/Vol] 249 mg/dL High 70-99 [facility] Comment on above: Performed By: #### L 500.2500 ####[facility] [address] [place], [address] Potassium [Moles/Vol] 4.1 mmol/L Normal 3.3-5.1 [facility] Comment on above: Performed By: #### L 500.2500 ####[facility] [address] [place], [address] Sodium [Moles/Vol] 138 mmol/L Normal 133-145 [facility] Comment on above: Performed By: #### L 500.2500 ####[facility] [address] [place], [address] Urea nitrogen [Mass/Vol] 6 mg/dL Normal 4-19 [facility] Comment on above: Performed By: #### L 500.2500 ####[facility] [address] [place], [address] BUN/CRE 10.8 RATIO Normal 10-20 [facility] Comment on above: Performed By: #### L 501.5200, L100.0100, L500.2500 ####[facility] [address] [place], [address] Calcium [Mass/Vol] 8.0 mg/dL Normal 7.6-11.0 [facility] Comment on above: Performed By: #### L 501.5200, L100.0100, L500.2500 ####[facility] [address] [place], [address] Chloride [Moles/Vol] 112 mmol/L High 98-108 [facility] Comment on above: Performed By: #### L 501.5200, L100.0100, L500.2500 ####[facility] [address] [place], [address] CO2 [Moles/Vol] 17.1 mmol/L Low 21.0-32.0 [facility] Comment on above: Performed By: #### L 501.5200, L100.0100, L500.2500 ####[facility] [address] [place], [address] Creatinine [Mass/Vol] 0.57 mg/dL Low 0.70-1.20 [facility] Comment on above: Performed By: #### L 501.5200, L100.0100, L500.2500 ####[facility] [address] [place], [address] ECRCL 150.82 ml/min Normal 50-250 [facility] Comment on above: Performed By: #### L 501.5200, L100.0100, L500.2500 ####[facility] [address] [place], [address] GAP 10 Normal 5-15 [facility] Comment on above: Performed By: #### L 501.5200, L100.0100, L500.2500 ####[facility] [address] [place], [address] GFR/1.73 sq M.predicted among non-blacks MDRD (S/P/Bld) [Vol rate/Area] 126 mL/min/{1.73_m2} Normal >60 [facility] Comment on above: Result Comment: mL/m in/1.73m2 CKD-EPI Creatinine Equation (2020) Performed By: #### L 501.5200, L100.0100, L500.2500 ####[facility] [address] [place], [address] Glucose [Mass/Vol] 81 mg/dL Normal 70-99 [facility] Comment on above: Performed By: #### L 501.5200, L100.0100, L500.2500 ####[facility] [address] [place], [address] Potassium [Moles/Vol] 4.0 mmol/L Normal 3.3-5.1 [facility] Comment on above: Result Comment: Hemo lysis present, Results??could be affected.?? Performed By: #### L 501.5200, L100.0100, L500.2500 ####[facility] [address] [place], [address] Sodium [Moles/Vol] 139 mmol/L Normal 133-145 [facility] Comment on above: Performed By: #### L 501.5200, L100.0100, L500.2500 ####[facility] [address] [place], [address] Urea nitrogen [Mass/Vol] 6 mg/dL Normal 4-19 [facility] Comment on above: Performed By: #### L 501.5200, L100.0100, L500.2500 ####[facility] [address] [place], [address] BUN Normal 4-19 [facility] Comment on above: Order Comment: Call MD with results STAT Result Comment: OM C ANCEL REQUEST Performed By: #### L 500.2500 ####[facility] [address] [place], [address] BUN/CRE Normal 10-20 [facility] Comment on above: Order Comment: Call MD with results STAT Result Comment: OM C ANCEL REQUEST Performed By: #### L 500.2500 ####[facility] [address] [place], [address] Calcium Normal 7.6-11.0 [facility] Comment on above: Order Comment: Call MD with results STAT Result Comment: OM C ANCEL REQUEST Performed By: #### L 500.2500 ####[facility] [address] [place], [address] CL Normal 98-108 [facility] Comment on above: Order Comment: Call MD with results STAT Result Comment: OM C ANCEL REQUEST Performed By: #### L 500.2500 ####[facility] [address] [place], [address] CO2 Normal 21.0-32.0 [facility] Comment on above: Order Comment: Call MD with results STAT Result Comment: OM C ANCEL REQUEST Performed By: #### L 500.2500 ####[facility] [address] [place], [address] CREAT,SERUM Normal 0.70-1.20 [facility] Comment on above: Order Comment: Call MD with results STAT Result Comment: OM C ANCEL REQUEST Performed By: #### L 500.2500 ####[facility] [address] [place], [address] eGFR Normal >60 [facility] Comment on above: Order Comment: Call MD with results STAT Result Comment: OM C ANCEL REQUEST Performed By: #### L 500.2500 ####[facility] [address] [place], [address] GAP Normal 5-15 [facility] Comment on above: Order Comment: Call MD with results STAT Result Comment: OM C ANCEL REQUEST Performed By: #### L 500.2500 ####[facility] [address] [place], [address] GLU Normal 70-99 [facility] Comment on above: Order Comment: Call MD with results STAT Result Comment: OM C ANCEL REQUEST Performed By: #### L 500.2500 ####[facility] [address] [place], [address] Potassium Normal 3.3-5.1 [facility] Comment on above: Order Comment: Call MD with results STAT Result Comment: OM C ANCEL REQUEST Performed By: #### L 500.2500 ####[facility] [address] [place], [address] Basic Metabolic Profile (BMP) Normal 133-145 [facility] Comment on above: Order Comment: Call MD with results STAT Result Comment: OM C ANCEL REQUEST Performed By: #### L 500.2500 ####[facility] [address] [place], [address] BUN/CRE 13.3 RATIO Normal 10-20 [facility] Comment on above: Order Comment: Call MD with results STAT Performed By: #### L 500.2500 ####[facility] [address] [place], [address] Calcium [Mass/Vol] 8.1 mg/dL Normal 7.6-11.0 [facility] Comment on above: Order Comment: Call MD with results STAT Performed By: #### L 500.2500 ####[facility] [address] [place], [address] Chloride [Moles/Vol] 108 mmol/L Normal 98-108 [facility] Comment on above: Order Comment: Call MD with results STAT Performed By: #### L 500.2500 ####[facility] [address] [place], [address] CO2 [Moles/Vol] 17.8 mmol/L Low 21.0-32.0 [facility] Comment on above: Order Comment: Call MD with results STAT Performed By: #### L 500.2500 ####[facility] [address] [place], [address] Creatinine [Mass/Vol] 0.56 mg/dL Low 0.70-1.20 [facility] Comment on above: Order Comment: Call MD with results STAT Performed By: #### L 500.2500 ####[facility] [address] [place], [address] ECRCL 153.51 ml/min Normal 50-250 [facility] Comment on above: Order Comment: Call MD with results STAT Performed By: #### L 500.2500 ####[facility] [address] [place], [address] GAP 12 Normal 5-15 [facility] Comment on above: Order Comment: Call MD with results STAT Performed By: #### L 500.2500 ####[facility] [address] [place], [address] GFR/1.73 sq M.predicted among non-blacks MDRD (S/P/Bld) [Vol rate/Area] 126 mL/min/{1.73_m2} Normal >60 [facility] Comment on above: Order Comment: Call MD with results STAT Result Comment: mL/m in/1.73m2 CKD-EPI Creatinine Equation (2020) Performed By: #### L 500.2500 ####[facility] [address] [place], [address] Glucose [Mass/Vol] 126 mg/dL High 70-99 [facility] Comment on above: Order Comment: Call MD with results STAT Performed By: #### L 500.2500 ####[facility] [address] [place], [address] Potassium [Moles/Vol] 3.7 mmol/L Normal 3.3-5.1 [facility] Comment on above: Order Comment: Call MD with results STAT Performed By: #### L 500.2500 ####[facility] [address] [place], [address] Sodium [Moles/Vol] 137 mmol/L Normal 133-145 [facility] Comment on above: Order Comment: Call MD with results STAT Performed By: #### L 500.2500 ####[facility] [address] [place], [address] Urea nitrogen [Mass/Vol] 7 mg/dL Normal 4-19 [facility] Comment on above: Order Comment: Call MD with results STAT Performed By: #### L 500.2500 ####[facility] [address] [place], [address] Bedside Glucoseon 06-25-2025 FINGERSTICK GLU 141 mg/dL High 74-106 [facility] Comment on above: Result Comment: EDGAR GEMENT OF PATIENT CARE PER NURSING PROTOCOL Performed By: #### L 501.080 ####[facility] [address] [place], [address] FINGERSTICK GLU 222 mg/dL High 74-106 [facility] Comment on above: Result Comment: EDGAR GEMENT OF PATIENT CARE PER NURSING PROTOCOL Performed By: #### L 501.080 ####[facility] [address] [place], [address] FINGERSTICK GLU 242 mg/dL High 74-106 [facility] Comment on above: Result Comment: EDGAR GEMENT OF PATIENT CARE PER NURSING PROTOCOL Performed By: #### L 501.080 ####[facility] [address] [place], [address] FINGERSTICK GLU 146 mg/dL High 74-106 [facility] Comment on above: Result Comment: EDGAR GEMENT OF PATIENT CARE PER NURSING PROTOCOL Performed By: #### L 501.080 ####[facility] [address] [place], [address] FINGERSTICK GLU 59 mg/dL Low 74-106 [facility] Comment on above: Result Comment: EDGAR GEMENT OF PATIENT CARE PER NURSING PROTOCOL Performed By: #### L 501.080 ####[facility] [address] [place], [address] FINGERSTICK GLU 93 mg/dL Normal 74-106 [facility] Comment on above: Result Comment: EDGAR GEMENT OF PATIENT CARE PER NURSING PROTOCOL Performed By: #### L 501.080 ####[facility] [address] [place], [address] FINGERSTICK GLU 143 mg/dL High 74-106 [facility] Comment on above: Result Comment: EDGAR GEMENT OF PATIENT CARE PER NURSING PROTOCOL Performed By: #### L 501.080 ####[facility] [address] [place], [address] FINGERSTICK GLU 59 mg/dL Low 74-106 [facility] Comment on above: Result Comment: EDGAR GEMENT OF PATIENT CARE PER NURSING PROTOCOL Performed By: #### L 501.080 ####[facility] [address] [place], [address] FINGERSTICK GLU 76 mg/dL Normal 74-106 [facility] Comment on above: Result Comment: EDGAR GEMENT OF PATIENT CARE PER NURSING PROTOCOL Performed By: #### L 501.080 ####[facility] [address] [place], [address] FINGERSTICK GLU 89 mg/dL Normal 74-106 [facility] Comment on above: Result Comment: EDGAR GEMENT OF PATIENT CARE PER NURSING PROTOCOL Performed By: #### L 501.080 ####[facility] [address] [place], [address] FINGERSTICK GLU 118 mg/dL High 74-106 [facility] Comment on above: Result Comment: EDGAR GEMENT OF PATIENT CARE PER NURSING PROTOCOL Performed By: #### L 501.080 ####[facility] [address] [place], [address] FINGERSTICK GLU 111 mg/dL High 74-106 [facility] Comment on above: Result Comment: EDGAR GEMENT OF PATIENT CARE PER NURSING PROTOCOL Performed By: #### L 501.080 ####[facility] [address] [place], [address] FINGERSTICK GLU 123 mg/dL High 74-106 [facility] Comment on above: Result Comment: EDGAR GEMENT OF PATIENT CARE PER NURSING PROTOCOL Performed By: #### L 501.080 ####[facility] [address] [place], [address] CBC W/Diff, Automatedon 01-27 Absolute Lymph 1.08 X10 3/uL Normal 0.83-4.51 [facility] Comment on above: Performed By: #### L 501.5200, L100.0100, L500.2500 ####[facility] [address] [place], [address] Absolute Neut 18.3 X10 3/uL High 2.0-7.7 [facility] Comment on above: Performed By: #### L 501.5200, L100.0100, L500.2500 ####[facility] [address] [place], [address] Basophils/100 WBC (Bld) 0.2 % Normal 0-1 [facility] Comment on above: Performed By: #### L 501.5200, L100.0100, L500.2500 ####[facility] [address] [place], [address] Eosinophils/100 WBC (Bld) 0.0 % Normal 0-5 [facility] Comment on above: Performed By: #### L 501.5200, L100.0100, L500.2500 ####[facility] [address] [place], [address] Erythrocyte distribution width (RBC) [Ratio] 13.4 % Normal 11.6-14.6 [facility] Comment on above: Performed By: #### L 501.5200, L100.0100, L500.2500 ####[facility] [address] [place], [address] Hematocrit (Bld) [Volume fraction] 35.4 % Low 37-47 [facility] Comment on above: Performed By: #### L 501.5200, L100.0100, L500.2500 ####[facility] [address] [place], [address] Hemoglobin (Bld) [Mass/Vol] 11.8 g/dL Low 12.0-15.0 [facility] Comment on above: Performed By: #### L 501.5200, L100.0100, L500.2500 ####[facility] [address] [place], [address] IG% 1.000 High 0.0-0.9 [facility] Comment on above: Result Comment: IG% - Immature Granulocytes (promyelocytes, myelocytes andmetamyelocytes) > 1% indicates that a LEFT SHIFT is Present. Performed By: #### L 501.5200, L100.0100, L500.2500 ####[facility] [address] [place], [address] Lymphocytes/100 WBC (Bld) 5.3 % Low 19-41 [facility] Comment on above: Performed By: #### L 501.5200, L100.0100, L500.2500 ####[facility] [address] [place], [address] MCH (RBC) [Entitic mass] 29.7 pg Normal 27.0-32.0 [facility] Comment on above: Performed By: #### L 501.5200, L100.0100, L500.2500 ####[facility] [address] [place], [address] MCHC (RBC) [Mass/Vol] 33.3 g/dL Normal 32-36 [facility] Comment on above: Performed By: #### L 501.5200, L100.0100, L500.2500 ####[facility] [address] [place], [address] MCV (RBC) [Entitic vol] 89.2 fL Normal 81-99 [facility] Comment on above: Performed By: #### L 501.5200, L100.0100, L500.2500 ####[facility] [address] [place], [address] Monocytes/100 WBC (Bld) 4.1 % Normal 0-10 [facility] Comment on above: Performed By: #### L 501.5200, L100.0100, L500.2500 ####[facility] [address] [place], [address] Neutrophils/100 WBC (Bld) 89.4 % High 47-70 [facility] Comment on above: Performed By: #### L 501.5200, L100.0100, L500.2500 ####[facility] [address] [place], [address] Nucleated RBC (Bld) [#/Vol] 0 10*3/uL Normal 0-5 [facility] Comment on above: Performed By: #### L 501.5200, L100.0100, L500.2500 ####[facility] [address] [place], [address] Platelet mean volume (Bld) [Entitic vol] 11.5 fL Normal 6.2-12.0 [facility] Comment on above: Performed By: #### L 501.5200, L100.0100, L500.2500 ####[facility] [address] [place], [address] Platelets (Bld) [#/Vol] 188 10*3/uL Normal 150-450 [facility] Comment on above: Performed By: #### L 501.5200, L100.0100, L500.2500 ####[facility] [address] [place], [address] RBC (Bld) [#/Vol] 3.97 10*6/uL Low 4.2-5.4 [facility] Comment on above: Performed By: #### L 501.5200, L100.0100, L500.2500 ####[facility] [address] [place], [address] RDW SD 43.9 fl Normal 35.1-43.9 [facility] Comment on above: Performed By: #### L 501.5200, L100.0100, L500.2500 ####[facility] [address] [place], [address] WBC (Bld) [#/Vol] 20.5 10*3/uL High 4.4-11.0 [facility] Comment on above: Performed By: #### L 501.5200, L100.0100, L500.2500 ####[facility] [address] [place], [address] Magnesiumon 02-19-2025 Magnesium [Mass/Vol] 2.9 mg/dL High 1.5-2.2 [facility] Comment on above: Performed By: #### L 501.5200, L100.0100, L500.2500 ####[facility] [address] [place], [address] 12 Lead EKGon 02-18-2025 12 Lead EKG Normal [facility] Basic Metabolic Profile (BMP )on 02-18-2025 BUN/CRE 16.4 RATIO Normal 10-20 [facility] Comment on above: Order Comment: Call MD with results STAT Performed By: #### L 500.2500 ####[facility] [address] [place], [address] Calcium [Mass/Vol] 7.8 mg/dL Normal 7.6-11.0 [facility] Comment on above: Order Comment: Call MD with results STAT Performed By: #### L 500.2500 ####[facility] [address] [place], [address] Chloride [Moles/Vol] 107 mmol/L Normal 98-108 [facility] Comment on above: Order Comment: Call MD with results STAT Performed By: #### L 500.2500 ####[facility] [address] [place], [address] CO2 [Moles/Vol] 17.2 mmol/L Low 21.0-32.0 [facility] Comment on above: Order Comment: Call MD with results STAT Performed By: #### L 500.2500 ####[facility] [address] [place], [address] Creatinine [Mass/Vol] 0.57 mg/dL Low 0.70-1.20 [facility] Comment on above: Order Comment: Call MD with results STAT Performed By: #### L 500.2500 ####[facility] [address] [place], [address] ECRCL 150.82 ml/min Normal 50-250 [facility] Comment on above: Order Comment: Call MD with results STAT Performed By: #### L 500.2500 ####[facility] [address] [place], [address] GAP 12 Normal 5-15 [facility] Comment on above: Order Comment: Call MD with results STAT Performed By: #### L 500.2500 ####[facility] [address] [place], [address] GFR/1.73 sq M.predicted among non-blacks MDRD (S/P/Bld) [Vol rate/Area] 125 mL/min/{1.73_m2} Normal >60 [facility] Comment on above: Order Comment: Call MD with results STAT Result Comment: mL/m in/1.73m2 CKD-EPI Creatinine Equation (2020) Performed By: #### L 500.2500 ####[facility] [address] [place], [address] Glucose [Mass/Vol] 111 mg/dL High 70-99 [facility] Comment on above: Order Comment: Call MD with results STAT Performed By: #### L 500.2500 ####[facility] [address] [place], [address] Potassium [Moles/Vol] 3.9 mmol/L Normal 3.3-5.1 [facility] Comment on above: Order Comment: Call MD with results STAT Performed By: #### L 500.2500 ####[facility] [address] [place], [address] Sodium [Moles/Vol] 137 mmol/L Normal 133-145 [facility] Comment on above: Order Comment: Call MD with results STAT Performed By: #### L 500.2500 ####[facility] [address] [place], [address] Urea nitrogen [Mass/Vol] 9 mg/dL Normal 4-19 [facility] Comment on above: Order Comment: Call MD with results STAT Performed By: #### L 500.2500 ####[facility] [address] [place], [address] Bedside Glucoseon 02-18-2025 FINGERSTICK GLU 125 mg/dL High 74-106 [facility] Comment on above: Result Comment: EDGAR GEMENT OF PATIENT CARE PER NURSING PROTOCOL Performed By: #### L 501.080 ####[facility] [address] [place], [address] FINGERSTICK GLU 121 mg/dL High 74-106 [facility] Comment on above: Result Comment: EDGAR GEMENT OF PATIENT CARE PER NURSING PROTOCOL Performed By: #### L 501.080 ####[facility] [address] [place], [address] FINGERSTICK GLU 93 mg/dL Normal 74-106 [facility] Comment on above: Result Comment: EDGAR GEMENT OF PATIENT CARE PER NURSING PROTOCOL Performed By: #### L 501.080 ####[facility] [address] [place], [address] FINGERSTICK GLU 97 mg/dL Normal 74-106 [facility] Comment on above: Result Comment: EDGAR GEMENT OF PATIENT CARE PER NURSING PROTOCOL Performed By: #### L 501.080 ####[facility] [address] [place], [address] FINGERSTICK GLU 144 mg/dL High 74-106 [facility] Comment on above: Result Comment: EDGAR GEMENT OF PATIENT CARE PER NURSING PROTOCOL Performed By: #### L 501.080 ####[facility] [address] [place], [address] FINGERSTICK GLU 265 mg/dL High 74-106 [facility] Comment on above: Result Comment: EDGAR GEMENT OF PATIENT CARE PER NURSING PROTOCOL Performed By: #### L 501.080 ####[facility] [address] [place], [address] Beta-Hydroxbytyrateon 2024 BETA-HYDROXYBUT 2.2 mmol/L High 0.0-0.3 [facility] Comment on above: Performed By: #### L 501.6901 ####[facility] [address] [place], [address] CBC W/Diff, Automatedon 01-27 Absolute Lymph 0.88 X10 3/uL Normal 0.83-4.51 [facility] Comment on above: Performed By: #### L 700.6800, L100.0100, L500.4050, L501.5200, L501.2450 ####[facility] [address] [place], [address] Absolute Neut 17.1 X10 3/uL High 2.0-7.7 [facility] Comment on above: Performed By: #### L 700.6800, L100.0100, L500.4050, L501.5200, L501.2450 ####[facility] [address] [place], [address] Basophils/100 WBC (Bld) 0.5 % Normal 0-1 [facility] Comment on above: Performed By: #### L 700.6800, L100.0100, L500.4050, L501.5200, L501.2450 ####[facility] [address] [place], [address] Eosinophils/100 WBC (Bld) 0.0 % Normal 0-5 [facility] Comment on above: Performed By: #### L 700.6800, L100.0100, L500.4050, L501.5200, L501.2450 ####[facility] [address] [place], [address] Erythrocyte distribution width (RBC) [Ratio] 13.3 % Normal 11.6-14.6 [facility] Comment on above: Performed By: #### L 700.6800, L100.0100, L500.4050, L501.5200, L501.2450 ####[facility] [address] [place], [address] Hematocrit (Bld) [Volume fraction] 41.2 % Normal 37-47 [facility] Comment on above: Performed By: #### L 700.6800, L100.0100, L500.4050, L501.5200, L501.2450 ####[facility] [address] [place], [address] Hemoglobin (Bld) [Mass/Vol] 13.7 g/dL Normal 12.0-15.0 [facility] Comment on above: Performed By: #### L 700.6800, L100.0100, L500.4050, L501.5200, L501.2450 ####[facility] [address] [place], [address] IG% 1.600 High 0.0-0.9 [facility] Comment on above: Result Comment: IG% - Immature Granulocytes (promyelocytes, myelocytes andmetamyelocytes) > 1% indicates that a LEFT SHIFT is Present. Performed By: #### L 700.6800, L100.0100, L500.4050, L501.5200, L501.2450 ####[facility] [address] [place], [address] Lymphocytes/100 WBC (Bld) 4.7 % Low 19-41 [facility] Comment on above: Performed By: #### L 700.6800, L100.0100, L500.4050, L501.5200, L501.2450 ####[facility] [address] [place], [address] MCH (RBC) [Entitic mass] 29.3 pg Normal 27.0-32.0 [facility] Comment on above: Performed By: #### L 700.6800, L100.0100, L500.4050, L501.5200, L501.2450 ####[facility] [address] [place], [address] MCHC (RBC) [Mass/Vol] 33.3 g/dL Normal 32-36 [facility] Comment on above: Performed By: #### L 700.6800, L100.0100, L500.4050, L501.5200, L501.2450 ####[facility] [address] [place], [address] MCV (RBC) [Entitic vol] 88.0 fL Normal 81-99 [facility] Comment on above: Performed By: #### L 700.6800, L100.0100, L500.4050, L501.5200, L501.2450 ####[facility] [address] [place], [address] Monocytes/100 WBC (Bld) 2.3 % Normal 0-10 [facility] Comment on above: Performed By: #### L 700.6800, L100.0100, L500.4050, L501.5200, L501.2450 ####[facility] [address] [place], [address] Neutrophils/100 WBC (Bld) 90.9 % High 47-70 [facility] Comment on above: Performed By: #### L 700.6800, L100.0100, L500.4050, L501.5200, L501.2450 ####[facility] [address] [place], [address] Nucleated RBC (Bld) [#/Vol] 0 10*3/uL Normal 0-5 [facility] Comment on above: Performed By: #### L 700.6800, L100.0100, L500.4050, L501.5200, L501.2450 ####[facility] [address] [place], [address] Platelet mean volume (Bld) [Entitic vol] 11.8 fL Normal 6.2-12.0 [facility] Comment on above: Performed By: #### L 700.6800, L100.0100, L500.4050, L501.5200, L501.2450 ####[facility] [address] [place], [address] Platelets (Bld) [#/Vol] 226 10*3/uL Normal 150-450 [facility] Comment on above: Performed By: #### L 700.6800, L100.0100, L500.4050, L501.5200, L501.2450 ####[facility] [address] [place], [address] RBC (Bld) [#/Vol] 4.68 10*6/uL Normal 4.2-5.4 [facility] Comment on above: Performed By: #### L 700.6800, L100.0100, L500.4050, L501.5200, L501.2450 ####[facility] [address] [place], [address] RDW SD 42.8 fl Normal 35.1-43.9 [facility] Comment on above: Performed By: #### L 700.6800, L100.0100, L500.4050, L501.5200, L501.2450 ####[facility] [address] [place], [address] WBC (Bld) [#/Vol] 18.8 10*3/uL High 4.4-11.0 [facility] Comment on above: Performed By: #### L 700.6800, L100.0100, L500.4050, L501.5200, L501.2450 ####[facility] [address] [place], [address] Comprehensive Metabolic Prof kyon 02-18-2025 Albumin [Mass/Vol] 4.3 g/dL Normal 3.5-5.0 [facility] Comment on above: Performed By: #### L 700.6800, L100.0100, L500.4050, L501.5200, L501.2450 ####[facility] [address] [place], [address] Albumin/Globulin [Mass ratio] 1.7 {ratio} Normal 0.9-2.4 [facility] Comment on above: Performed By: #### L 700.6800, L100.0100, L500.4050, L501.5200, L501.2450 ####[facility] [address] [place], [address] ALK PHOS 85 U/L Normal 35-104 [facility] Comment on above: Performed By: #### L 700.6800, L100.0100, L500.4050, L501.5200, L501.2450 ####[facility] [address] [place], [address] ALT [Catalytic activity/Vol] 11 U/L Normal <=34 [facility] Comment on above: Performed By: #### L 700.6800, L100.0100, L500.4050, L501.5200, L501.2450 ####[facility] [address] [place], [id number] AST [Catalytic activity/Vol] 17 U/L Normal <=31 [facility] Comment on above: Performed By: #### L 700.6800, L100.0100, L500.4050, L501.5200, L501.2450 ####[facility] [address] [address] [place], [address] Bilirubin [Mass/Vol] 0.79 mg/dL Normal 0.00-1.30 [facility] Comment on above: Performed By: #### L 700.6800, L100.0100, L500.4050, L501.5200, L501.2450 ####[facility] [address] [place], [address] BUN/CRE 15.1 RATIO Normal 10-20 [facility] Comment on above: Performed By: #### L 700.6800, L100.0100, L500.4050, L501.5200, L501.2450 ####[facility] [address] [place], [address] Calcium [Mass/Vol] 9.6 mg/dL Normal 7.6-11.0 [facility] Comment on above: Performed By: #### L 700.6800, L100.0100, L500.4050, L501.5200, L501.2450 ####[facility] [address] [place], [address] Chloride [Moles/Vol] 101 mmol/L Normal 98-108 [facility] Comment on above: Performed By: #### L 700.6800, L100.0100, L500.4050, L501.5200, L501.2450 ####[facility] [address] [place], [address] CO2 [Moles/Vol] 15.4 mmol/L Low 21.0-32.0 [facility] Comment on above: Performed By: #### L 700.6800, L100.0100, L500.4050, L501.5200, L501.2450 ####[facility] [address] [place], [address] Creatinine [Mass/Vol] 0.73 mg/dL Normal 0.70-1.20 [facility] Comment on above: Performed By: #### L 700.6800, L100.0100, L500.4050, L501.5200, L501.2450 ####[facility] [address] [place], [address] GAP 20 High 5-15 [facility] Comment on above: Performed By: #### L 700.6800, L100.0100, L500.4050, L501.5200, L501.2450 ####[facility] [address] [place], [address] GFR/1.73 sq M.predicted among non-blacks MDRD (S/P/Bld) [Vol rate/Area] 114 mL/min/{1.73_m2} Normal >60 [facility] Comment on above: Result Comment: mL/m in/1.73m2 CKD-EPI Creatinine Equation (2020) Performed By: #### L 700.6800, L100.0100, L500.4050, L501.5200, L501.2450 ####[facility] [address] [place], [address] Globulin (S) [Mass/Vol] 2.6 g/dL Normal 2.2-4.2 [facility] Comment on above: Performed By: #### L 700.6800, L100.0100, L500.4050, L501.5200, L501.2450 ####[facility] [address] [place], [address] Glucose [Mass/Vol] 324 mg/dL High 70-99 [facility] Comment on above: Performed By: #### L 700.6800, L100.0100, L500.4050, L501.5200, L501.2450 ####[facility] [address] [place], [address] Potassium [Moles/Vol] 4.2 mmol/L Normal 3.3-5.1 [facility] Comment on above: Performed By: #### L 700.6800, L100.0100, L500.4050, L501.5200, L501.2450 ####[facility] [address] [place], [address] Sodium [Moles/Vol] 136 mmol/L Normal 133-145 [facility] Comment on above: Performed By: #### L 700.6800, L100.0100, L500.4050, L501.5200, L501.2450 ####[facility] [address] [place], [address] T PROT 6.9 g/dL Normal 5.9-8.4 [facility] Comment on above: Performed By: #### L 700.6800, L100.0100, L500.4050, L501.5200, L501.2450 ####[facility] [address] [place], [address] Urea nitrogen [Mass/Vol] 11 mg/dL Normal 4-19 [facility] Comment on above: Performed By: #### L 700.6800, L100.0100, L500.4050, L501.5200, L501.2450 ####[facility] [address] [place], [address] Emergency Department Summary on 02-18-2025 Emergency Department Summary Normal [facility] H AND P Exam - Hospitaliston 02-18-2025 H&P Exam - Hospitalist Normal [facility] Lipaseon 02-18-2025 Lipase [Catalytic activity/Vol] 9 U/L Low 13-75 [facility] Comment on above: Result Comment: Sulma schmitz note:LIPASE revised reference range effective 22.New Lipase methodology. Expected to produce lower valuesthan the previous assay method.NEW Reference Range: 13 - 75 U/L Performed By: #### L 700.6800, L100.0100, L500.4050, L501.5200, L501.2450 ####[facility] [address] [place], [address] Magnesiumon 02-18-2025 Magnesium [Mass/Vol] 1.5 mg/dL Normal 1.5-2.2 [facility] Comment on above: Performed By: #### L 700.6800, L100.0100, L500.4050, L501.5200, L501.2450 ####[facility] [address] [place], [place], [id number] ,Serum,hCG Quali.on 02-18-2025 HCG, SERUM QUAL Negative Normal [facility] Comment on above: Performed By: #### L 700.6800, L100.0100, L500.4050, L501.5200, L501.2450 ####[facility] [address] [place], [address] Urinalysis, Completeon 02-18 RBC 0-5 SEEN Normal 0-5 [facility] Comment on above: Order Comment: CLEAN CATCH Performed By: #### L 400.0001 ####[facility] [address] [place], [address] WBC 0-5 SEEN Normal 0-5 [facility] Comment on above: Order Comment: CLEAN CATCH Performed By: #### L 400.0001 ####[facility] [address] [place], [address] EPI,SQUAMOUS 5-10 SEEN Normal 5-10 [facility] Comment on above: Order Comment: CLEAN CATCH Performed By: #### L 400.0001 ####[facility] [address] [place], [address] BACTERIA 0 SEEN Normal None Seen [facility] Comment on above: Order Comment: CLEAN CATCH Performed By: #### L 400.0001 ####[facility] [address] [place], [address] Mucus Ql (Urine sed) 0 SEEN Normal [facility] Comment on above: Order Comment: CLEAN CATCH Performed By: #### L 400.0001 ####[facility] [address] [place], [address] Venous Blood Gason 5 Blood Gas Type ISABELLE Normal [facility] Comment on above: Performed By: #### L 9000.0810 ####[facility] [address] [place], [address] CO2 [Moles/Vol] 22 mmol/L Low 23-33 [facility] Comment on above: Performed By: #### L 9000.0810 ####[facility] [address] [place], [address] HCO3 (Bld) [Moles/Vol] 22 mmol/L Normal 22-26 [facility] Comment on above: Performed By: #### L 9000.0810 ####[facility] [address] [place], [address] O2 Delivery Dev Not entered [facility] Comment on above: Performed By: #### L 9000.0810 ####[facility] [address] [place], [address] SITE Not entered [facility] Comment on above: Performed By: #### L 9000.0810 ####[facility] [address] [place], [address] VBG BE -1 mmol/L Normal -1.0-3.5 [facility] Comment on above: Performed By: #### L 9000.0810 ####[facility] [address] [place], [address] VBG pCO2 26.5 mmHg Low 41-51 [facility] Comment on above: Performed By: #### L 9000.0810 ####[facility] [address] [place], [address] VBG pH 7.52 High 7.32-7.42 [facility] Comment on above: Performed By: #### L 9000.0810 ####[facility] [address] [place], [address] VBG PO2 29 mmHg Normal 25-40 [facility] Comment on above: Performed By: #### L 9000.0810 ####[facility] [address] [place], [address] VBG SO2 64 Normal 50-70 [facility] Comment on above: Performed By: #### L 9000.0810 ####[facility] [address] [place], [address] Hepatitis A AB, Totalon 06- HEPATITIS A,TOT Positive Abnormal Negative [facility] Comment on above: Order Comment: KATHY CALDERON [...] HAVtotal antibody results to IgM (e.g., panel #[id number] HAVAntibody w/ Rfx).Performed at: [address] [id number] Director: Esteban Jin PhD, Phone: [phone] Performed By: #### L 3100.0460, L300.3900, L100.0100, L3890.6202, L501.9520, L500.2500, L3890.6301, L500.3400, L3410.9992, L3100.0300, L3890.6102, L501.9985 ####[facility] [address] [facility] [place], [address] Hepatitis B Core Ab Totalon 02-05-2025 HEP B CORE,TOT Negative Normal Negative [facility] Comment on above: Order Comment: KATHY CALDERON ORDERED BMP,LIVER,CBCD,PT/INR,TSH,HEBSAG,HECAB,HEAT,HEP B CORE, AND ELF.ANTONIA ORDERED CMP AND A1C Performed By: #### L 3100.0460, L300.3900, L100.0100, L3890.6202, L501.9520, L500.2500, L3890.6301, L500.3400, L3410.9992, L3100.0300, L3890.6102, L501.9985 ####[facility] [address] [place], [place], [address] L3410.9992on 02-05-2025 [facility] Normal . [facility] Comment on above: Order Comment: KATHY CALDERON ORDERED BMP,LIVER,CBCD,PT/INR,TSH,HEBSAG,HECAB,HEAT,HEP B CORE, AND ELF.ANTONIA ORDERED CMP AND [id number] Result Comment: Test Ordered: [id number] Enhanced Liver Fibrosis (ELF)ELF(TM) Score 8.11 BN [...] with bridging fibrosis or compensatedcirrhosis due to MALROW: Results from randomized phaseIII STELLAR trials. J Hepatol. 2020 Feb;73(1):26-39.Performed at: [facility] [address] [id number] Director: Brian Rouse MD, Phone: [phone] at: [facility] [address] [id number] Director: Esteban Jin PhD, Phone: [phone] Performed By: #### L 3100.0460, L300.3900, L100.0100, L3890.6202, L501.9520, L500.2500, L3890.6301, L500.3400, L3410.9992, L3100.0300, L3890.6102, L501.9985 ####[facility] [address] [place], [place], [id number] Basic Metabolic Profile (BMP )on 02-03-2025 BUN/CRE 12.4 RATIO Normal 10-20 [facility] Comment on above: Order Comment: KATHY CALDERON ORDERED BMP,LIVER,CBCD,PT/INR,TSH,HEBSAG,HECAB,HEAT,HEP B CORE, AND ELF.ANTONIA ORDERED CMP AND A1C Performed By: #### L 3100.0460, L300.3900, L100.0100, L3890.6202, L501.9520, L500.2500, L3890.6301, L500.3400, L3410.9992, L3100.0300, L3890.6102, L501.9985 ####[facility] [address] [place], [place], [phone] Calcium [Mass/Vol] 9.7 mg/dL Normal 7.6-11.0 [facility] Comment on above: Order Comment: KATHY CALDERON ORDERED BMP,LIVER,CBCD,PT/INR,TSH,HEBSAG,HECAB,HEAT,HEP B CORE, AND ELF.ANTONIA ORDERED CMP AND A1C Performed By: #### L 3100.0460, L300.3900, L100.0100, L3890.6202, L501.9520, L500.2500, L3890.6301, L500.3400, L3410.9992, L3100.0300, L3890.6102, L501.9985 ####[facility] [address] [place], [place], [phone] Chloride [Moles/Vol] 96 mmol/L Low 98-108 [facility] Comment on above: Order Comment: KATHY CALDERON ORDERED BMP,LIVER,CBCD,PT/INR,TSH,HEBSAG,HECAB,HEAT,HEP B CORE, AND ELF.ANTONIA ORDERED CMP AND A1C Performed By: #### L 3100.0460, L300.3900, L100.0100, L3890.6202, L501.9520, L500.2500, L3890.6301, L500.3400, L3410.9992, L3100.0300, L3890.6102, L501.9985 ####[facility] [address] [place], [place], [phone] CO2 [Moles/Vol] 22.5 mmol/L Normal 21.0-32.0 [facility] Comment on above: Order Comment: KATHY CALDERON ORDERED BMP,LIVER,CBCD,PT/INR,TSH,HEBSAG,HECAB,HEAT,HEP B CORE, AND ELF.ANTONIA ORDERED CMP AND A1C Performed By: #### L 3100.0460, L300.3900, L100.0100, L3890.6202, L501.9520, L500.2500, L3890.6301, L500.3400, L3410.9992, L3100.0300, L3890.6102, L501.9985 ####[facility] [address] [place], [place], [address] Creatinine [Mass/Vol] 0.78 mg/dL Normal 0.70-1.20 [facility] Comment on above: Order Comment: KATHY CALDERON ORDERED BMP,LIVER,CBCD,PT/INR,TSH,HEBSAG,HECAB,HEAT,HEP B CORE, AND ELF.ANTONIA ORDERED CMP AND A1C Performed By: #### L 3100.0460, L300.3900, L100.0100, L3890.6202, L501.9520, L500.2500, L3890.6301, L500.3400, L3410.9992, L3100.0300, L3890.6102, L501.9985 ####[facility] [address] [place], [place], [address] GAP 15 Normal 5-15 [facility] Comment on above: Order Comment: KATHY CALDERON ORDERED BMP,LIVER,CBCD,PT/INR,TSH,HEBSAG,HECAB,HEAT,HEP B CORE, AND ELF.ANTONIA ORDERED CMP AND A1C Performed By: #### L 3100.0460, L300.3900, L100.0100, L3890.6202, L501.9520, L500.2500, L3890.6301, L500.3400, L3410.9992, L3100.0300, L3890.6102, L501.9985 ####[facility] [address] [place], [place], [address] GFR/1.73 sq M.predicted among non-blacks MDRD (S/P/Bld) [Vol rate/Area] 106 mL/min/{1.73_m2} Normal >60 [facility] Comment on above: Order Comment: KATHY CALDERNO ORDERED BMP,LIVER,CBCD,PT/INR,TSH,HEBSAG,HECAB,HEAT,HEP B CORE, AND ELF.ANTONIA ORDERED CMP AND A1C Result Comment: mL/m in/1.73m2 CKD-EPI Creatinine Equation (2020) Performed By: #### L 3100.0460, L300.3900, L100.0100, L3890.6202, L501.9520, L500.2500, L3890.6301, L500.3400, L3410.9992, L3100.0300, L3890.6102, L501.9985 ####[facility] [address] [place], [address] Glucose [Mass/Vol] 459 mg/dL Invalid Interpretation Code 70-99 [facility] Comment on above: Order Comment: KATHY CALDERON ORDERED BMP,LIVER,CBCD,PT/INR,TSH,HEBSAG,HECAB,HEAT,HEP B CORE, AND ELF.ANTONIA ORDERED CMP AND A1C Result Comment: Crit ical Result(s) Called at: by:??Results read back bysame.LEFT VOICEMAIL @ 1811 Performed By: #### L 3100.0460, L300.3900, L100.0100, L3890.6202, L501.9520, L500.2500, L3890.6301, L500.3400, L3410.9992, L3100.0300, L3890.6102, L501.9985 ####[facility] [address] [place], [place], [phone] Potassium [Moles/Vol] 4.7 mmol/L Normal 3.3-5.1 [facility] Comment on above: Order Comment: KATHY CALDERON ORDERED BMP,LIVER,CBCD,PT/INR,TSH,HEBSAG,HECAB,HEAT,HEP B CORE, AND ELF.ASSEMBLER HYDRAULIC BACKHOE.SAMANTHAHOWalter ORDERED CMP AND A1C Performed By: #### L 3100.0460, L300.3900, L100.0100, L3890.6202, L501.9520, L500.2500, L3890.6301, L500.3400, L3410.9992, L3100.0300, L3890.6102, L501.9985 ####[facility] [address] [place], [address] Sodium [Moles/Vol] 133 mmol/L Normal 133-145 [facility] Comment on above: Order Comment: KATHY CALDERON ORDERED BMP,LIVER,CBCD,PT/INR,TSH,HEBSAG,HECAB,HEAT,HEP B CORE, AND ELF.CHRIS.SAMANTHAHOWalter ORDERED CMP AND A1C Performed By: #### L 3100.0460, L300.3900, L100.0100, L3890.6202, L501.9520, L500.2500, L3890.6301, L500.3400, L3410.9992, L3100.0300, L3890.6102, L501.9985 ####[facility] [address] [place], [address] Urea nitrogen [Mass/Vol] 10 mg/dL Normal 4-19 [facility] Comment on above: Order Comment: KATHY CALDERON ORDERED BMP,LIVER,CBCD,PT/INR,TSH,HEBSAG,HECAB,HEAT,HEP B CORE, AND ELF.HILARYHOWalter ORDERED CMP AND A1C Performed By: #### L 3100.0460, L300.3900, L100.0100, L3890.6202, L501.9520, L500.2500, L3890.6301, L500.3400, L3410.9992, L3100.0300, L3890.6102, L501.9985 ####[facility] [address] [place], [address] CBC W/Diff, Automatedon 06-0 9-2024 Absolute Lymph 1.69 X10 3/uL Normal 0.83-4.51 [facility] Comment on above: Order Comment: KATHY CALDERON ORDERED BMP,LIVER,CBCD,PT/INR,TSH,HEBSAG,HECAB,HEAT,HEP B CORE, AND ELF.ASSEMBLER HYDRAULIC BACKHOE.AMOS ORDERED CMP AND A1C Performed By: #### L 3100.0460, L300.3900, L100.0100, L3890.6202, L501.9520, L500.2500, L3890.6301, L500.3400, L3410.9992, L3100.0300, L3890.6102, L501.9985 ####[facility] [address] [place], [place], [phone] Absolute Neut 7.9 X10 3/uL High 2.0-7.7 [facility] Comment on above: Order Comment: KATHY CALDERON ORDERED BMP,LIVER,CBCD,PT/INR,TSH,HEBSAG,HECAB,HEAT,HEP B CORE, AND ELF.ASSEMBLER HYDRAULIC BACKHOE.SAMANTHAHOWalter ORDERED CMP AND A1C Performed By: #### L 3100.0460, L300.3900, L100.0100, L3890.6202, L501.9520, L500.2500, L3890.6301, L500.3400, L3410.9992, L3100.0300, L3890.6102, L501.9985 ####[facility] [address] [place], [place], [phone] Basophils/100 WBC (Bld) 0.5 % Normal 0-1 [facility] Comment on above: Order Comment: KAHTY CALDERON ORDERED BMP,LIVER,CBCD,PT/INR,TSH,HEBSAG,HECAB,HEAT,HEP B CORE, AND ELF.ASSEMBLER HYDRAULIC BACKHOEKELVINHOWalter ORDERED CMP AND A1C Performed By: #### L 3100.0460, L300.3900, L100.0100, L3890.6202, L501.9520, L500.2500, L3890.6301, L500.3400, L3410.9992, L3100.0300, L3890.6102, L501.9985 ####[facility] [address] [facility] [place], [address] Eosinophils/100 WBC (Bld) 0.5 % Normal 0-5 [facility] Comment on above: Order Comment: KATHY CALDERON ORDERED BMP,LIVER,CBCD,PT/INR,TSH,HEBSAG,HECAB,HEAT,HEP B CORE, AND ELF.ANTONIA ORDERED CMP AND A1C Performed By: #### L 3100.0460, L300.3900, L100.0100, L3890.6202, L501.9520, L500.2500, L3890.6301, L500.3400, L3410.9992, L3100.0300, L3890.6102, L501.9985 ####[facility] [address] [facility]. [place], [place], [phone] Erythrocyte distribution width (RBC) [Ratio] 13.4 % Normal 11.6-14.6 [facility] Comment on above: Order Comment: KATHY CALDERON ORDERED BMP,LIVER,CBCD,PT/INR,TSH,HEBSAG,HECAB,HEAT,HEP B CORE, AND ELF.ANTONIA ORDERED CMP AND A1C Performed By: #### L 3100.0460, L300.3900, L100.0100, L3890.6202, L501.9520, L500.2500, L3890.6301, L500.3400, L3410.9992, L3100.0300, L3890.6102, L501.9985 ####[facility] [address] [facility]. [place], [place], [phone] Hematocrit (Bld) [Volume fraction] 40.5 % Normal 37-47 [facility] Comment on above: Order Comment: KATHY CALDERON ORDERED BMP,LIVER,CBCD,PT/INR,TSH,HEBSAG,HECAB,HEAT,HEP B CORE, AND ELF.ANTONIA ORDERED CMP AND A1C Performed By: #### L 3100.0460, L300.3900, L100.0100, L3890.6202, L501.9520, L500.2500, L3890.6301, L500.3400, L3410.9992, L3100.0300, L3890.6102, L501.9985 ####[facility] [address] [place], [place], [phone]) Hemoglobin (Bld) [Mass/Vol] 13.5 g/dL Normal 12.0-15.0 [facility] Comment on above: Order Comment: KATHY CALDERON ORDERED BMP,LIVER,CBCD,PT/INR,TSH,HEBSAG,HECAB,HEAT,HEP B CORE, AND ELF.ANTONIA ORDERED CMP AND A1C Performed By: #### L 3100.0460, L300.3900, L100.0100, L3890.6202, L501.9520, L500.2500, L3890.6301, L500.3400, L3410.9992, L3100.0300, L3890.6102, L501.9985 ####[facility] [address] [place], [address] IG% 1.500 High 0.0-0.9 [facility] Comment on above: Order Comment: KATHY CALDERON ORDERED BMP,LIVER,CBCD,PT/INR,TSH,HEBSAG,HECAB,HEAT,HEP B CORE, AND ELF.ANTONIA ORDERED CMP AND A1C Result Comment: IG% - Immature Granulocytes (promyelocytes, myelocytes andmetamyelocytes) > 1% indicates that a LEFT SHIFT is Present. Performed By: #### L 3100.0460, L300.3900, L100.0100, L3890.6202, L501.9520, L500.2500, L3890.6301, L500.3400, L3410.9992, L3100.0300, L3890.6102, L501.9985 ####[facility] [address] [place], [address] Lymphocytes/100 WBC (Bld) 16.3 % Low 19-41 [facility] Comment on above: Order Comment: KATHY CALDERON ORDERED BMP,LIVER,CBCD,PT/INR,TSH,HEBSAG,HECAB,HEAT,HEP B CORE, AND ELF.ANTONIA ORDERED CMP AND A1C Performed By: #### L 3100.0460, L300.3900, L100.0100, L3890.6202, L501.9520, L500.2500, L3890.6301, L500.3400, L3410.9992, L3100.0300, L3890.6102, L501.9985 ####[facility] [address] [place], [address] MCH (RBC) [Entitic mass] 29.7 pg Normal 27.0-32.0 [facility] Comment on above: Order Comment: KATHY CALDERON ORDERED BMP,LIVER,CBCD,PT/INR,TSH,HEBSAG,HECAB,HEAT,HEP B CORE, AND ELF.ANTONIA ORDERED CMP AND A1C Performed By: #### L 3100.0460, L300.3900, L100.0100, L3890.6202, L501.9520, L500.2500, L3890.6301, L500.3400, L3410.9992, L3100.0300, L3890.6102, L501.9985 ####[facility] [address] [place], [address] MCHC (RBC) [Mass/Vol] 33.3 g/dL Normal 32-36 [facility] Comment on above: Order Comment: KATHY CALDERON ORDERED BMP,LIVER,CBCD,PT/INR,TSH,HEBSAG,HECAB,HEAT,HEP B CORE, AND ELF.ASSEMBLER HYDRAULIC BACKHOE.SAMANTHAHOWalter ORDERED CMP AND A1C Performed By: #### L 3100.0460, L300.3900, L100.0100, L3890.6202, L501.9520, L500.2500, L3890.6301, L500.3400, L3410.9992, L3100.0300, L3890.6102, L501.9985 ####[facility] [address] [place], [address] MCV (RBC) [Entitic vol] 89.0 fL Normal 81-99 [facility] Comment on above: Order Comment: KATHY CALDERON ORDERED BMP,LIVER,CBCD,PT/INR,TSH,HEBSAG,HECAB,HEAT,HEP B CORE, AND ELF.ASSEMBLER HYDRAULIC BACKHOE.SAMANTHAHOWalter ORDERED CMP AND A1C Performed By: #### L 3100.0460, L300.3900, L100.0100, L3890.6202, L501.9520, L500.2500, L3890.6301, L500.3400, L3410.9992, L3100.0300, L3890.6102, L501.9985 ####[facility] [address], [address] Monocytes/100 WBC (Bld) 4.8 % Normal 0-10 [facility] Comment on above: Order Comment: KATHY CALDERON ORDERED BMP,LIVER,CBCD,PT/INR,TSH,HEBSAG,HECAB,HEAT,HEP B CORE, AND ELF.ASSEMBLER HYDRAULIC BACKHOE.SAMANTHAHOF ORDERED CMP AND A1C Performed By: #### L 3100.0460, L300.3900, L100.0100, L3890.6202, L501.9520, L500.2500, L3890.6301, L500.3400, L3410.9992, L3100.0300, L3890.6102, L501.9985 ####[facility] [id number] [place], [address] Neutrophils/100 WBC (Bld) 76.4 % High 47-70 [facility] Comment on above: Order Comment: KATHY CALDERON ORDERED BMP,LIVER,CBCD,PT/INR,TSH,HEBSAG,HECAB,HEAT,HEP B CORE, AND ELF.ANTONIA ORDERED CMP AND A1C Performed By: #### L 3100.0460, L300.3900, L100.0100, L3890.6202, L501.9520, L500.2500, L3890.6301, L500.3400, L3410.9992, L3100.0300, L3890.6102, L501.9985 ####[facility] [id number] [place], [address] Nucleated RBC (Bld) [#/Vol] 0 10*3/uL Normal 0-5 [facility] Comment on above: Order Comment: KATHY CALDERON ORDERED BMP,LIVER,CBCD,PT/INR,TSH,HEBSAG,HECAB,HEAT,HEP B CORE, AND ELF.ANTONIA ORDERED CMP AND A1C Performed By: #### L 3100.0460, L300.3900, L100.0100, L3890.6202, L501.9520, L500.2500, L3890.6301, L500.3400, L3410.9992, L3100.0300, L3890.6102, L501.9985 ####[facility] [address] [place], [address] Platelet mean volume (Bld) [Entitic vol] 11.5 fL Normal 6.2-12.0 [facility] Comment on above: Order Comment: KATHY CALDERON ORDERED BMP,LIVER,CBCD,PT/INR,TSH,HEBSAG,HECAB,HEAT,HEP B CORE, AND ELF.ANTONIA ORDERED CMP AND A1C Performed By: #### L 3100.0460, L300.3900, L100.0100, L3890.6202, L501.9520, L500.2500, L3890.6301, L500.3400, L3410.9992, L3100.0300, L3890.6102, L501.9985 ####[facility] [address] [place], [address] Platelets (Bld) [#/Vol] 215 10*3/uL Normal 150-450 [facility] Comment on above: Order Comment: KATHY CALDERON ORDERED BMP,LIVER,CBCD,PT/INR,TSH,HEBSAG,HECAB,HEAT,HEP B CORE, AND ELF.ANTONIA ORDERED CMP AND A1C Performed By: #### L 3100.0460, L300.3900, L100.0100, L3890.6202, L501.9520, L500.2500, L3890.6301, L500.3400, L3410.9992, L3100.0300, L3890.6102, L501.9985 ####[facility] [address] [place], [place], [id number]) RBC (Bld) [#/Vol] 4.55 10*6/uL Normal 4.2-5.4 [facility] Comment on above: Order Comment: KATHY CALDERON ORDERED BMP,LIVER,CBCD,PT/INR,TSH,HEBSAG,HECAB,HEAT,HEP B CORE, AND ELF.ANTONIA ORDERED CMP AND A1C Performed By: #### L 3100.0460, L300.3900, L100.0100, L3890.6202, L501.9520, L500.2500, L3890.6301, L500.3400, L3410.9992, L3100.0300, L3890.6102, L501.9985 ####[facility] [address] [place], [address] RDW [place] 43.5 fl Normal 35.1-43.9 [facility] Comment on above: Order Comment: KATHY CALDERON ORDERED BMP,LIVER,CBCD,PT/INR,TSH,HEBSAG,HECAB,HEAT,HEP B CORE, AND ELF.ANTONIA ORDERED CMP AND A1C Performed By: #### L 3100.0460, L300.3900, L100.0100, L3890.6202, L501.9520, L500.2500, L3890.6301, L500.3400, L3410.9992, L3100.0300, L3890.6102, L501.9985 ####[facility] [address] [place], [address] WBC (Bld) [#/Vol] 10.4 10*3/uL Normal 4.4-11.0 [facility] Comment on above: Order Comment: KATHY CALDERON ORDERED BMP,LIVER,CBCD,PT/INR,TSH,HEBSAG,HECAB,HEAT,HEP B CORE, AND ELF.ANTONIA ORDERED CMP AND A1C Performed By: #### L 3100.0460, L300.3900, L100.0100, L3890.6202, L501.9520, L500.2500, L3890.6301, L500.3400, L3410.9992, L3100.0300, L3890.6102, L501.9985 ####[facility] [address] [place], [address] Hemoglobin A1con 02-03-2025 HbA1c (Bld) [Mass fraction] 10.9 % High <=5.6 [facility] Comment on above: Order Comment: KATHY CALDERON ORDERED BMP,LIVER,CBCD,PT/INR,TSH,HEBSAG,HECAB,HEAT,HEP B CORE, AND ELF.ANTONIA ORDERED CMP AND A1C Result Comment: Norm al < 5.7 % Prediabetic 5.7 - 6.4 % Diabetic >or= 6.5 % Please note range changes. Performed By: #### L 3100.0460, L300.3900, L100.0100, L3890.6202, L501.9520, L500.2500, L3890.6301, L500.3400, L3410.9992, L3100.0300, L3890.6102, L501.9985 ####[facility] [address] [place], [place], [phone] Hepatitis B Surface Antibody on 02-03-2025 HEP B Surf Ab Non-Reactive Normal [facility] Comment on above: Order Comment: KATHY CALDERON ORDERED BMP,LIVER,CBCD,PT/INR,TSH,HEBSAG,HECAB,HEAT,HEP B CORE, AND ELF.ANTONIA ORDERED CMP AND A1C Result Comment: <8.5 mIU/mL: Non-Reactive8.5<= x <11.5 mIU/mL: Indeterminate>=11.5 mIU/mL: Reactive Non Reactive: Inconsistent with immunity less than <10 mIU/mL Reactive: Consistent with immunity greater than or equal to 10 mIU/mL Performed By: #### L 3100.0460, L300.3900, L100.0100, L3890.6202, L501.9520, L500.2500, L3890.6301, L500.3400, L3410.9992, L3100.0300, L3890.6102, L501.9985 ####[facility] [address] [facility] [place], [address] Hepatitis C Antibodyon 02-03 Hepatitis C Ab Non-Reactive Normal Nonreactive [facility] Comment on above: Order Comment: KATHY CALDERON ORDERED BMP,LIVER,CBCD,PT/INR,TSH,HEBSAG,HECAB,HEAT,HEP B CORE, AND ELF.ANTONIA ORDERED CMP AND A1C Result Comment: Reac tive: Presumptive evidence of antibodies to HCV. [facility].Non-Reactive: Antibodies to HCV were not detected; does notexclude the possibility of exposure to HCVReactive Results are presumptive evidence of antibodies toHCV. Follow CDC recommendations for supplemental testing.Order confirmation testing: HCV Quant by PCR testing -HCVPCR #[id number] Non Reactive: < 0.8 Equivocal: >/= 0.8 to < 1.0 Reactive: >/= 1.0The [facility] requires that a reactive/equivocal HCV antibodyresult be sent out for confirmation. HCV Quant by PCRtesting. Performed By: #### L 3100.0460, L300.3900, L100.0100, L3890.6202, L501.9520, L500.2500, L3890.6301, L500.3400, L3410.9992, L3100.0300, L3890.6102, L501.9985 ####[facility] [address] [facility] [place], [address] L3890.6102on 02-03-2025 HEP B Surf Ag Non-Reactive Normal Nonreactive [facility] Comment on above: Order Comment: KATHY CALDERON ORDERED BMP,LIVER,CBCD,PT/INR,TSH,HEBSAG,HECAB,HEAT,HEP B CORE, AND ELF.ANTONIA ORDERED CMP AND A1C Result Comment: Reac tive: Presumptive evidence of HBV. Repeatedly reactivesamples must be confirmed using a neutralization test([employer] HBsAg Confirmatory Test)Non-Reactive: HBsAg not detected; does not exclude thepossibility of exposure to HBV Performed By: #### L 3100.0460, L300.3900, L100.0100, L3890.6202, L501.9520, L500.2500, L3890.6301, L500.3400, L3410.9992, L3100.0300, L3890.6102, L501.9985 ####[facility] [address] [facility] [place], [address] Liver Profileon 02-03-2025 Albumin [Mass/Vol] 4.2 g/dL Normal 3.5-5.0 [facility] Comment on above: Order Comment: KATHY CALDERON ORDERED BMP,LIVER,CBCD,PT/INR,TSH,HEBSAG,HECAB,HEAT,HEP B CORE, AND ELF.ANTONIA ORDERED CMP AND A1C Performed By: #### L 3100.0460, L300.3900, L100.0100, L3890.6202, L501.9520, L500.2500, L3890.6301, L500.3400, L3410.9992, L3100.0300, L3890.6102, L501.9985 ####[facility] [address] [place], [address] ALK PHOS 95 U/L Normal 35-104 [facility] Comment on above: Order Comment: KATHY CALDERON ORDERED BMP,LIVER,CBCD,PT/INR,TSH,HEBSAG,HECAB,HEAT,HEP B CORE, AND ELF.ANTONIA ORDERED CMP AND A1C Performed By: #### L 3100.0460, L300.3900, L100.0100, L3890.6202, L501.9520, L500.2500, L3890.6301, L500.3400, L3410.9992, L3100.0300, L3890.6102, L501.9985 ####[facility] [address] [place], [address] ALT [Catalytic activity/Vol] 29 U/L Normal <=34 [facility] Comment on above: Order Comment: KATHY CALDERON ORDERED BMP,LIVER,CBCD,PT/INR,TSH,HEBSAG,HECAB,HEAT,HEP B CORE, AND ELF.ANTONIA ORDERED CMP AND A1C Performed By: #### L 3100.0460, L300.3900, L100.0100, L3890.6202, L501.9520, L500.2500, L3890.6301, L500.3400, L3410.9992, L3100.0300, L3890.6102, L501.9985 ####[facility] [address] [place], [place], [phone] AST [Catalytic activity/Vol] 18 U/L Normal <=31 [facility] Comment on above: Order Comment: KATHY CALDERON ORDERED BMP,LIVER,CBCD,PT/INR,TSH,HEBSAG,HECAB,HEAT,HEP B CORE, AND ELF.ANTONIA ORDERED CMP AND A1C Performed By: #### L 3100.0460, L300.3900, L100.0100, L3890.6202, L501.9520, L500.2500, L3890.6301, L500.3400, L3410.9992, L3100.0300, L3890.6102, L501.9985 ####[facility] [address] [place], [place], [phone]) Bilirubin [Mass/Vol] 0.30 mg/dL Normal 0.00-1.30 [facility] Comment on above: Order Comment: KATHY CALDERON ORDERED BMP,LIVER,CBCD,PT/INR,TSH,HEBSAG,HECAB,HEAT,HEP B CORE, AND ELF.ANTONIA ORDERED CMP AND A1C Performed By: #### L 3100.0460, L300.3900, L100.0100, L3890.6202, L501.9520, L500.2500, L3890.6301, L500.3400, L3410.9992, L3100.0300, L3890.6102, L501.9985 ####[facility] [address] [place], [place], [phone] Bilirubin.direct [Mass/Vol] 0.13 mg/dL Normal 0.00-0.30 [facility] Comment on above: Order Comment: KATHY CALDERON ORDERED BMP,LIVER,CBCD,PT/INR,TSH,HEBSAG,HECAB,HEAT,HEP B CORE, AND ELF.ANTONIA ORDERED CMP AND A1C Performed By: #### L 3100.0460, L300.3900, L100.0100, L3890.6202, L501.9520, L500.2500, L3890.6301, L500.3400, L3410.9992, L3100.0300, L3890.6102, L501.9985 ####[facility] [address] [place], [place], [phone] Globulin (S) [Mass/Vol] 2.7 g/dL Normal 2.2-4.2 [facility] Comment on above: Order Comment: KATHY CALDERON ORDERED BMP,LIVER,CBCD,PT/INR,TSH,HEBSAG,HECAB,HEAT,HEP B CORE, AND ELF.ANTONIA ORDERED CMP AND A1C Performed By: #### L 3100.0460, L300.3900, L100.0100, L3890.6202, L501.9520, L500.2500, L3890.6301, L500.3400, L3410.9992, L3100.0300, L3890.6102, L501.9985 ####[facility] [address] [place], [place], [phone] T PROT 6.8 g/dL Normal 5.9-8.4 [facility] Comment on above: Order Comment: KATHY CALDERON ORDERED BMP,LIVER,CBCD,PT/INR,TSH,HEBSAG,HECAB,HEAT,HEP B CORE, AND ELF.ANTONIA ORDERED CMP AND A1C Performed By: #### L 3100.0460, L300.3900, L100.0100, L3890.6202, L501.9520, L500.2500, L3890.6301, L500.3400, L3410.9992, L3100.0300, L3890.6102, L501.9985 ####[facility] [address] [place], [address] Prothrombin Time w/INRon INR Coag (PPP) [Relative time] 0.9 {INR} Normal [facility] Comment on above: Order Comment: KATHY CALDERON ORDERED BMP,LIVER,CBCD,PT/INR,TSH,HEBSAG,HECAB,HEAT,HEP B CORE, AND ELF.ANTONIA ORDERED CMP AND A1C Performed By: #### L 3100.0460, L300.3900, L100.0100, L3890.6202, L501.9520, L500.2500, L3890.6301, L500.3400, L3410.9992, L3100.0300, L3890.6102, L501.9985 ####[facility] [address] [place], [place], [phone] PT Coag (PPP) [Time] 11.9 s Normal 11.7-14.9 [facility] Comment on above: Order Comment: KATHY CALDERON ORDERED BMP,LIVER,CBCD,PT/INR,TSH,HEBSAG,HECAB,HEAT,HEP B CORE, AND ELF.ANTONIA ORDERED CMP AND A1C Performed By: #### L 3100.0460, L300.3900, L100.0100, L3890.6202, L501.9520, L500.2500, L3890.6301, L500.3400, L3410.9992, L3100.0300, L3890.6102, L501.9985 ####[facility] [address] [facility] [place], [place], [phone] Thyroid Stim Hormone (TSH)on 02-03-2025 TSH 1.140 uIU/mL Normal 0.300-4.200 [facility] Comment on above: Order Comment: KATHY CALDERON ORDERED BMP,LIVER,CBCD,PT/INR,TSH,HEBSAG,HECAB,HEAT,HEP B CORE, AND ELF.ANTONIA ORDERED CMP AND A1C Performed By: #### L 3100.0460, L300.3900, L100.0100, L3890.6202, L501.9520, L500.2500, L3890.6301, L500.3400, L3410.9992, L3100.0300, L3890.6102, L501.9985 ####[facility] [address] [place], [address] Basic Metabolic Profile (BMP )on 02-01-2025 BUN Normal 4-19 [facility] Comment on above: Result Comment: Canc elled via OM: Order cancelled - Patient discharged Performed By: #### L 500.2500, L100.0100 ####[facility] [address] [place], [address] BUN/CRE Normal 10-20 [facility] Comment on above: Result Comment: Canc elled via OM: Order cancelled - Patient discharged Performed By: #### L 500.2500, L100.0100 ####[facility] [address] [place], [address] Calcium Normal 7.6-11.0 [facility] Comment on above: Result Comment: Canc elled via OM: Order cancelled - Patient discharged Performed By: #### L 500.2500, L100.0100 ####[facility] [address] [place], [address] CL Normal 98-108 [facility] Comment on above: Result Comment: Canc elled via OM: Order cancelled - Patient discharged Performed By: #### L 500.2500, L100.0100 ####[facility] [address] [place], [address] CO2 Normal 21.0-32.0 [facility] Comment on above: Result Comment: Canc elled via OM: Order cancelled - Patient discharged Performed By: #### L 500.2500, L100.0100 ####[facility] [address] [place], [address] CREAT,SERUM Normal 0.70-1.20 [facility] Comment on above: Result Comment: Canc elled via OM: Order cancelled - Patient discharged Performed By: #### L 500.2500, L100.0100 ####[facility] [address] [place], [address] eGFR Normal >60 [facility] Comment on above: Result Comment: Canc elled via OM: Order cancelled - Patient discharged Performed By: #### L 500.2500, L100.0100 ####[facility] [address] [place], [address] GAP Normal 5-15 [facility] Comment on above: Result Comment: Canc elled via OM: Order cancelled - Patient discharged Performed By: #### L 500.2500, L100.0100 ####[facility] [address] [place], [address] GLU Normal 70-99 [facility] Comment on above: Result Comment: Canc elled via OM: Order cancelled - Patient discharged Performed By: #### L 500.2500, L100.0100 ####[facility] [address] [place], [address] Potassium Normal 3.3-5.1 [facility] Comment on above: Result Comment: Canc elled via OM: Order cancelled - Patient discharged Performed By: #### L 500.2500, L100.0100 ####[facility] [address] [place], [address] Basic Metabolic Profile (BMP) Normal 133-145 [facility] Comment on above: Result Comment: Canc elled via OM: Order cancelled - Patient discharged Performed By: #### L 500.2500, L100.0100 ####[facility] [address] [place], [address] CBC W/Diff, Automatedon 06-0 -2024 Absolute Neut Normal 2.0-7.7 [facility] Comment on above: Result Comment: Canc elled via OM: Order cancelled - Patient discharged Performed By: #### L 500.2500, L100.0100 ####[facility] [address] [place], [address] HCT Normal 37-47 [facility] Comment on above: Result Comment: Canc elled via OM: Order cancelled - Patient discharged Performed By: #### L 500.2500, L100.0100 ####[facility] [address] [place], [address] HGB Normal 12.0-15.0 [facility] Comment on above: Result Comment: Canc elled via OM: Order cancelled - Patient discharged Performed By: #### L 500.2500, L100.0100 ####[facility] [address] [place], [address] MCH Normal 27.0-32.0 [facility] Comment on above: Result Comment: Canc elled via OM: Order cancelled - Patient discharged Performed By: #### L 500.2500, L100.0100 ####[facility] [address] [place], [address] MCHC Normal 32-36 [facility] Comment on above: Result Comment: Canc elled via OM: Order cancelled - Patient discharged Performed By: #### L 500.2500, L100.0100 ####[facility] [address] [place], [address] MCV Normal 81-99 [facility] Comment on above: Result Comment: Canc elled via OM: Order cancelled - Patient discharged Performed By: #### L 500.2500, L100.0100 ####[facility] [address] [place], [address] NEUT% Normal 47-70 [facility] Comment on above: Result Comment: Canc elled via OM: Order cancelled - Patient discharged Performed By: #### L 500.2500, L100.0100 ####[facility] [address] [place], [address] PLT Normal 150-450 [facility] Comment on above: Result Comment: Canc elled via OM: Order cancelled - Patient discharged Performed By: #### L 500.2500, L100.0100 ####[facility] [address] [place], [address] RBC Normal 4.2-5.4 [facility] Comment on above: Result Comment: Canc elled via OM: Order cancelled - Patient discharged Performed By: #### L 500.2500, L100.0100 ####[facility] [address] [place], [address] RDW CV Normal 11.6-14.6 [facility] Comment on above: Result Comment: Canc elled via OM: Order cancelled - Patient discharged Performed By: #### L 500.2500, L100.0100 ####[facility] [address] [place], [address] RDW SD Normal 35.1-43.9 [facility] Comment on above: Result Comment: Canc elled via OM: Order cancelled - Patient discharged Performed By: #### L 500.2500, L100.0100 ####[facility] [address] [place], [address] WBC Normal 4.4-11.0 [facility] Comment on above: Result Comment: Canc elled via OM: Order cancelled - Patient discharged Performed By: #### L 500.2500, L100.0100 ####[facility] [address] [place], [address] Basic Metabolic Profile (BMP )on 01-31-2025 BUN Normal 4-19 [facility] Comment on above: Result Comment: Canc elled via OM: Order cancelled - Patient discharged Performed By: #### L 500.2500, L100.0100 ####[facility] [address] [place], [address] BUN/CRE Normal 10-20 [facility] Comment on above: Result Comment: Canc elled via OM: Order cancelled - Patient discharged Performed By: #### L 500.2500, L100.0100 ####[facility] [address] [place], [address] Calcium Normal 7.6-11.0 [facility] Comment on above: Result Comment: Canc elled via OM: Order cancelled - Patient discharged Performed By: #### L 500.2500, L100.0100 ####[facility] [address] [place], [address] CL Normal 98-108 [facility] Comment on above: Result Comment: Canc elled via OM: Order cancelled - Patient discharged Performed By: #### L 500.2500, L100.0100 ####[facility] [address] [place], [address] CO2 Normal 21.0-32.0 [facility] Comment on above: Result Comment: Canc elled via OM: Order cancelled - Patient discharged Performed By: #### L 500.2500, L100.0100 ####[facility] [address] [place], [address] CREAT,SERUM Normal 0.70-1.20 [facility] Comment on above: Result Comment: Canc elled via OM: Order cancelled - Patient discharged Performed By: #### L 500.2500, L100.0100 ####[facility] [address] [place], [address] eGFR Normal >60 [facility] Comment on above: Result Comment: Canc elled via OM: Order cancelled - Patient discharged Performed By: #### L 500.2500, L100.0100 ####[facility] [address] [place], [address] GAP Normal 5-15 [facility] Comment on above: Result Comment: Canc elled via OM: Order cancelled - Patient discharged Performed By: #### L 500.2500, L100.0100 ####[facility] [address] [place], [address] GLU Normal 70-99 [facility] Comment on above: Result Comment: Canc elled via OM: Order cancelled - Patient discharged Performed By: #### L 500.2500, L100.0100 ####[facility] [address] [place], [address] Potassium Normal 3.3-5.1 [facility] Comment on above: Result Comment: Canc elled via OM: Order cancelled - Patient discharged Performed By: #### L 500.2500, L100.0100 ####[facility] [address] [place], [address] Basic Metabolic Profile (BMP) Normal 133-145 [facility] Comment on above: Result Comment: Canc elled via OM: Order cancelled - Patient discharged Performed By: #### L 500.2500, L100.0100 ####[facility] [address] [place], [address] CBC W/Diff, Automatedon 06-0 6-2024 Absolute Neut Normal 2.0-7.7 [facility] Comment on above: Result Comment: Canc elled via OM: Order cancelled - Patient discharged Performed By: #### L 500.2500, L100.0100 ####[facility] [address] [place], [address] HCT Normal 37-47 [facility] Comment on above: Result Comment: Canc elled via OM: Order cancelled - Patient discharged Performed By: #### L 500.2500, L100.0100 ####[facility] [address] [place], [address] HGB Normal 12.0-15.0 [facility] Comment on above: Result Comment: Canc elled via OM: Order cancelled - Patient discharged Performed By: #### L 500.2500, L100.0100 ####[facility] [address] [place], [address] MCH Normal 27.0-32.0 [facility] Comment on above: Result Comment: Canc elled via OM: Order cancelled - Patient discharged Performed By: #### L 500.2500, L100.0100 ####[facility] [address] [place], [address] MCHC Normal 32-36 [facility] Comment on above: Result Comment: Canc elled via OM: Order cancelled - Patient discharged Performed By: #### L 500.2500, L100.0100 ####[facility] [address] [place], [address] MCV Normal 81-99 [facility] Comment on above: Result Comment: Canc elled via OM: Order cancelled - Patient discharged Performed By: #### L 500.2500, L100.0100 ####[facility] [address] [place], [address] NEUT% Normal 47-70 [facility] Comment on above: Result Comment: Canc elled via OM: Order cancelled - Patient discharged Performed By: #### L 500.2500, L100.0100 ####[facility] [address] [place], [address] PLT Normal 150-450 [facility] Comment on above: Result Comment: Canc elled via OM: Order cancelled - Patient discharged Performed By: #### L 500.2500, L100.0100 ####[facility] [address] [place], [address] RBC Normal 4.2-5.4 [facility] Comment on above: Result Comment: Canc elled via OM: Order cancelled - Patient discharged Performed By: #### L 500.2500, L100.0100 ####[facility] [address] [place], [address] RDW CV Normal 11.6-14.6 [facility] Comment on above: Result Comment: Canc elled via OM: Order cancelled - Patient discharged Performed By: #### L 500.2500, L100.0100 ####[facility] [address] [place], [address] RDW SD Normal 35.1-43.9 [facility] Comment on above: Result Comment: Canc elled via OM: Order cancelled - Patient discharged Performed By: #### L 500.2500, L100.0100 ####[facility] [address] [place], [address] WBC Normal 4.4-11.0 [facility] Comment on above: Result Comment: Canc elled via OM: Order cancelled - Patient discharged Performed By: #### L 500.2500, L100.0100 ####[facility] [address] [place], [address] Basic Metabolic Profile (BMP )on 01-30-2025 BUN Normal 4-19 [facility] Comment on above: Result Comment: Canc elled via OM: Order cancelled - Patient discharged Performed By: #### L 500.2500, L100.0100 ####[facility] [address] [place], [address] BUN/CRE Normal 10-20 [facility] Comment on above: Result Comment: Canc elled via OM: Order cancelled - Patient discharged Performed By: #### L 500.2500, L100.0100 ####[facility] [address] [place], [address] Calcium Normal 7.6-11.0 [facility] Comment on above: Result Comment: Canc elled via OM: Order cancelled - Patient discharged Performed By: #### L 500.2500, L100.0100 ####[facility] [address] [place], [address] CL Normal 98-108 [facility] Comment on above: Result Comment: Canc elled via OM: Order cancelled - Patient discharged Performed By: #### L 500.2500, L100.0100 ####[facility] [address] [place], [address] CO2 Normal 21.0-32.0 [facility] Comment on above: Result Comment: Canc elled via OM: Order cancelled - Patient discharged Performed By: #### L 500.2500, L100.0100 ####[facility] [address] [place], [address] CREAT,SERUM Normal 0.70-1.20 [facility] Comment on above: Result Comment: Canc elled via OM: Order cancelled - Patient discharged Performed By: #### L 500.2500, L100.0100 ####[facility] [address] [place], [address] eGFR Normal >60 [facility] Comment on above: Result Comment: Canc elled via OM: Order cancelled - Patient discharged Performed By: #### L 500.2500, L100.0100 ####[facility] [address] [place], [address] GAP Normal 5-15 [facility] Comment on above: Result Comment: Canc elled via OM: Order cancelled - Patient discharged Performed By: #### L 500.2500, L100.0100 ####[facility] [address] [place], [address] GLU Normal 70-99 [facility] Comment on above: Result Comment: Canc elled via OM: Order cancelled - Patient discharged Performed By: #### L 500.2500, L100.0100 ####[facility] [address] [place], [address] Potassium Normal 3.3-5.1 [facility] Comment on above: Result Comment: Canc elled via OM: Order cancelled - Patient discharged Performed By: #### L 500.2500, L100.0100 ####[facility] [address] [place], [address] Basic Metabolic Profile (BMP) Normal 133-145 [facility] Comment on above: Result Comment: Canc elled via OM: Order cancelled - Patient discharged Performed By: #### L 500.2500, L100.0100 ####[facility] [address] [place], [address] CBC W/Diff, Automatedon 06-0 5-2024 Absolute Neut Normal 2.0-7.7 [facility] Comment on above: Result Comment: Canc elled via OM: Order cancelled - Patient discharged Performed By: #### L 500.2500, L100.0100 ####[facility] [address] [place], [address] HCT Normal 37-47 [facility] Comment on above: Result Comment: Canc elled via OM: Order cancelled - Patient discharged Performed By: #### L 500.2500, L100.0100 ####[facility] [address] [place], [address] HGB Normal 12.0-15.0 [facility] Comment on above: Result Comment: Canc elled via OM: Order cancelled - Patient discharged Performed By: #### L 500.2500, L100.0100 ####[facility] [address] [place], [address] MCH Normal 27.0-32.0 [facility] Comment on above: Result Comment: Canc elled via OM: Order cancelled - Patient discharged Performed By: #### L 500.2500, L100.0100 ####[facility] [address] [place], [address] MCHC Normal 32-36 [facility] Comment on above: Result Comment: Canc elled via OM: Order cancelled - Patient discharged Performed By: #### L 500.2500, L100.0100 ####[facility] [address] [place], [address] MCV Normal 81-99 [facility] Comment on above: Result Comment: Canc elled via OM: Order cancelled - Patient discharged Performed By: #### L 500.2500, L100.0100 ####[facility] [address] [place], [address] NEUT% Normal 47-70 [facility] Comment on above: Result Comment: Canc elled via OM: Order cancelled - Patient discharged Performed By: #### L 500.2500, L100.0100 ####[facility] [address] [place], [address] PLT Normal 150-450 [facility] Comment on above: Result Comment: Canc elled via OM: Order cancelled - Patient discharged Performed By: #### L 500.2500, L100.0100 ####[facility] [address] [place], [address] RBC Normal 4.2-5.4 [facility] Comment on above: Result Comment: Canc elled via OM: Order cancelled - Patient discharged Performed By: #### L 500.2500, L100.0100 ####[facility] [address] [place], [address] RDW CV Normal 11.6-14.6 [facility] Comment on above: Result Comment: Canc elled via OM: Order cancelled - Patient discharged Performed By: #### L 500.2500, L100.0100 ####[facility] [address] [place], [address] RDW SD Normal 35.1-43.9 [facility] Comment on above: Result Comment: Canc elled via OM: Order cancelled - Patient discharged Performed By: #### L 500.2500, L100.0100 ####[facility] [address] [place], [address] WBC Normal 4.4-11.0 [facility] Comment on above: Result Comment: Canc elled via OM: Order cancelled - Patient discharged Performed By: #### L 500.2500, L100.0100 ####[facility] [address] [place], [address] Basic Metabolic Profile (BMP )on 01-29-2025 BUN Normal 4-19 [facility] Comment on above: Result Comment: Canc elled via OM: Order cancelled - Patient discharged Performed By: #### L 500.2500, L100.0100 ####[facility] [address] [place], [address] BUN/CRE Normal 10-20 [facility] Comment on above: Result Comment: Canc elled via OM: Order cancelled - Patient discharged Performed By: #### L 500.2500, L100.0100 ####[facility] [address] [place], [address] Calcium Normal 7.6-11.0 [facility] Comment on above: Result Comment: Canc elled via OM: Order cancelled - Patient discharged Performed By: #### L 500.2500, L100.0100 ####[facility] [address] [place], [address] CL Normal 98-108 [facility] Comment on above: Result Comment: Canc elled via OM: Order cancelled - Patient discharged Performed By: #### L 500.2500, L100.0100 ####[facility] [address] [place], [address] CO2 Normal 21.0-32.0 [facility] Comment on above: Result Comment: Canc elled via OM: Order cancelled - Patient discharged Performed By: #### L 500.2500, L100.0100 ####[facility] [address] [place], [address] CREAT,SERUM Normal 0.70-1.20 [facility] Comment on above: Result Comment: Canc elled via OM: Order cancelled - Patient discharged Performed By: #### L 500.2500, L100.0100 ####[facility] [address] [place], [address] eGFR Normal >60 [facility] Comment on above: Result Comment: Canc elled via OM: Order cancelled - Patient discharged Performed By: #### L 500.2500, L100.0100 ####[facility] [address] [place], [address] GAP Normal 5-15 [facility] Comment on above: Result Comment: Canc elled via OM: Order cancelled - Patient discharged Performed By: #### L 500.2500, L100.0100 ####[facility] [address] [place], [address] GLU Normal 70-99 [facility] Comment on above: Result Comment: Canc elled via OM: Order cancelled - Patient discharged Performed By: #### L 500.2500, L100.0100 ####[facility] [address] [place], [address] Potassium Normal 3.3-5.1 [facility] Comment on above: Result Comment: Canc elled via OM: Order cancelled - Patient discharged Performed By: #### L 500.2500, L100.0100 ####[facility] [address] [place], [address] Basic Metabolic Profile (BMP) Normal 133-145 [facility] Comment on above: Result Comment: Canc elled via OM: Order cancelled - Patient discharged Performed By: #### L 500.2500, L100.0100 ####[facility] [address] [place], [address] CBC W/Diff, Automatedon 06-0 Absolute Neut Normal 2.0-7.7 [facility] Comment on above: Result Comment: Canc elled via OM: Order cancelled - Patient discharged Performed By: #### L 500.2500, L100.0100 ####[facility] [address] [place], [address] HCT Normal 37-47 [facility] Comment on above: Result Comment: Canc elled via OM: Order cancelled - Patient discharged Performed By: #### L 500.2500, L100.0100 ####[facility] [address] [place], [address] HGB Normal 12.0-15.0 [facility] Comment on above: Result Comment: Canc elled via OM: Order cancelled - Patient discharged Performed By: #### L 500.2500, L100.0100 ####[facility] [address] [place], [address] MCH Normal 27.0-32.0 [facility] Comment on above: Result Comment: Canc elled via OM: Order cancelled - Patient discharged Performed By: #### L 500.2500, L100.0100 ####[facility] [address] [place], [address] MCHC Normal 32-36 [facility] Comment on above: Result Comment: Canc elled via OM: Order cancelled - Patient discharged Performed By: #### L 500.2500, L100.0100 ####[facility] [address] [place], [address] MCV Normal 81-99 [facility] Comment on above: Result Comment: Canc elled via OM: Order cancelled - Patient discharged Performed By: #### L 500.2500, L100.0100 ####[facility] [address] [place], [address] NEUT% Normal 47-70 [facility] Comment on above: Result Comment: Canc elled via OM: Order cancelled - Patient discharged Performed By: #### L 500.2500, L100.0100 ####[facility] [address] [place], [address] PLT Normal 150-450 [facility] Comment on above: Result Comment: Canc elled via OM: Order cancelled - Patient discharged Performed By: #### L 500.2500, L100.0100 ####[facility] [address] [place], [address] RBC Normal 4.2-5.4 [facility] Comment on above: Result Comment: Canc elled via OM: Order cancelled - Patient discharged Performed By: #### L 500.2500, L100.0100 ####[facility] [address] [place], [address] RDW CV Normal 11.6-14.6 [facility] Comment on above: Result Comment: Canc elled via OM: Order cancelled - Patient discharged Performed By: #### L 500.2500, L100.0100 ####[facility] [address] [place], [address] RDW SD Normal 35.1-43.9 [facility] Comment on above: Result Comment: Canc elled via OM: Order cancelled - Patient discharged Performed By: #### L 500.2500, L100.0100 ####[facility] [address] [place], [address] WBC Normal 4.4-11.0 [facility] Comment on above: Result Comment: Canc elled via OM: Order cancelled - Patient discharged Performed By: #### L 500.2500, L100.0100 ####[facility] [address] [place], [address] Basic Metabolic Profile (BMP )on 01-28-2025 BUN Normal 4-19 [facility] Comment on above: Result Comment: Canc elled via OM: Order cancelled - Patient discharged Performed By: #### L 500.2500, L100.0100 ####[facility] [address] [place], [address] BUN/CRE Normal 10-20 [facility] Comment on above: Result Comment: Canc elled via OM: Order cancelled - Patient discharged Performed By: #### L 500.2500, L100.0100 ####[facility] [address] [place], [address] Calcium Normal 7.6-11.0 [facility] Comment on above: Result Comment: Canc elled via OM: Order cancelled - Patient discharged Performed By: #### L 500.2500, L100.0100 ####[facility] [address] [place], [address] CL Normal 98-108 [facility] Comment on above: Result Comment: Canc elled via OM: Order cancelled - Patient discharged Performed By: #### L 500.2500, L100.0100 ####[facility] [address] [place], [address] CO2 Normal 21.0-32.0 [facility] Comment on above: Result Comment: Canc elled via OM: Order cancelled - Patient discharged Performed By: #### L 500.2500, L100.0100 ####[facility] [address] [place], [address] CREAT,SERUM Normal 0.70-1.20 [facility] Comment on above: Result Comment: Canc elled via OM: Order cancelled - Patient discharged Performed By: #### L 500.2500, L100.0100 ####[facility] [address] [place], [address] eGFR Normal >60 [facility] Comment on above: Result Comment: Canc elled via OM: Order cancelled - Patient discharged Performed By: #### L 500.2500, L100.0100 ####[facility] [address] [place], [address] GAP Normal 5-15 [facility] Comment on above: Result Comment: Canc elled via OM: Order cancelled - Patient discharged Performed By: #### L 500.2500, L100.0100 ####[facility] [address] [place], [address] GLU Normal 70-99 [facility] Comment on above: Result Comment: Canc elled via OM: Order cancelled - Patient discharged Performed By: #### L 500.2500, L100.0100 ####[facility] [address] [place], [address] Potassium Normal 3.3-5.1 [facility] Comment on above: Result Comment: Canc elled via OM: Order cancelled - Patient discharged Performed By: #### L 500.2500, L100.0100 ####[facility] [address] [place], [address] Basic Metabolic Profile (BMP) Normal 133-145 [facility] Comment on above: Result Comment: Canc elled via OM: Order cancelled - Patient discharged Performed By: #### L 500.2500, L100.0100 ####[facility] [address] [place], [address] CBC W/Diff, Automatedon 06-0 Absolute Neut Normal 2.0-7.7 [facility] Comment on above: Result Comment: Canc elled via OM: Order cancelled - Patient discharged Performed By: #### L 500.2500, L100.0100 ####[facility] [address] [place], [address] HCT Normal 37-47 [facility] Comment on above: Result Comment: Canc elled via OM: Order cancelled - Patient discharged Performed By: #### L 500.2500, L100.0100 ####[facility] [address] [place], [address] HGB Normal 12.0-15.0 [facility] Comment on above: Result Comment: Canc elled via OM: Order cancelled - Patient discharged Performed By: #### L 500.2500, L100.0100 ####[facility] [address] [place], [address] MCH Normal 27.0-32.0 [facility] Comment on above: Result Comment: Canc elled via OM: Order cancelled - Patient discharged Performed By: #### L 500.2500, L100.0100 ####[facility] [address] [place], [address] MCHC Normal 32-36 [facility] Comment on above: Result Comment: Canc elled via OM: Order cancelled - Patient discharged Performed By: #### L 500.2500, L100.0100 ####[facility] [address] [place], [address] MCV Normal 81-99 [facility] Comment on above: Result Comment: Canc elled via OM: Order cancelled - Patient discharged Performed By: #### L 500.2500, L100.0100 ####[facility] [address] [place], [address] NEUT% Normal 47-70 [facility] Comment on above: Result Comment: Canc elled via OM: Order cancelled - Patient discharged Performed By: #### L 500.2500, L100.0100 ####[facility] [address] [place], [address] PLT Normal 150-450 [facility] Comment on above: Result Comment: Canc elled via OM: Order cancelled - Patient discharged Performed By: #### L 500.2500, L100.0100 ####[facility] [address] [place], [address] RBC Normal 4.2-5.4 [facility] Comment on above: Result Comment: Canc elled via OM: Order cancelled - Patient discharged Performed By: #### L 500.2500, L100.0100 ####[facility] [address] [place], [address] RDW CV Normal 11.6-14.6 [facility] Comment on above: Result Comment: Canc elled via OM: Order cancelled - Patient discharged Performed By: #### L 500.2500, L100.0100 ####[facility] [address] [place], [address] RDW SD Normal 35.1-43.9 [facility] Comment on above: Result Comment: Canc elled via OM: Order cancelled - Patient discharged Performed By: #### L 500.2500, L100.0100 ####[facility] [address] [place], [address] WBC Normal 4.4-11.0 [facility] Comment on above: Result Comment: Canc elled via OM: Order cancelled - Patient discharged Performed By: #### L 500.2500, L100.0100 ####[facility] [address] [place], [address] Basic Metabolic Profile (BMP )on 01-27-2025 BUN Normal 4-19 [facility] Comment on above: Result Comment: Canc elled via OM: Order cancelled - Patient discharged Performed By: #### L 100.0100, L500.2500 ####[facility] [address] [place], [address] BUN/CRE Normal 10-20 [facility] Comment on above: Result Comment: Canc elled via OM: Order cancelled - Patient discharged Performed By: #### L 100.0100, L500.2500 ####[facility] [address] [place], [address] Calcium Normal 7.6-11.0 [facility] Comment on above: Result Comment: Canc elled via OM: Order cancelled - Patient discharged Performed By: #### L 100.0100, L500.2500 ####[facility] [address] [place], [address] CL Normal 98-108 [facility] Comment on above: Result Comment: Canc elled via OM: Order cancelled - Patient discharged Performed By: #### L 100.0100, L500.2500 ####[facility] [address] [place], [address] CO2 Normal 21.0-32.0 [facility] Comment on above: Result Comment: Canc elled via OM: Order cancelled - Patient discharged Performed By: #### L 100.0100, L500.2500 ####[facility] [address] [place], [address] CREAT,SERUM Normal 0.70-1.20 [facility] Comment on above: Result Comment: Canc elled via OM: Order cancelled - Patient discharged Performed By: #### L 100.0100, L500.2500 ####[facility] [address] [place], [address] eGFR Normal >60 [facility] Comment on above: Result Comment: Canc elled via OM: Order cancelled - Patient discharged Performed By: #### L 100.0100, L500.2500 ####[facility] [address] [place], [address] GAP Normal 5-15 [facility] Comment on above: Result Comment: Canc elled via OM: Order cancelled - Patient discharged Performed By: #### L 100.0100, L500.2500 ####[facility] [address] [place], [address] GLU Normal 70-99 [facility] Comment on above: Result Comment: Canc elled via OM: Order cancelled - Patient discharged Performed By: #### L 100.0100, L500.2500 ####[facility] [address] [place], [address] Potassium Normal 3.3-5.1 [facility] Comment on above: Result Comment: Canc elled via OM: Order cancelled - Patient discharged Performed By: #### L 100.0100, L500.2500 ####[facility] [address] [place], [address] Basic Metabolic Profile (BMP) Normal 133-145 [facility] Comment on above: Result Comment: Canc elled via OM: Order cancelled - Patient discharged Performed By: #### L 100.0100, L500.2500 ####[facility] [address] [place], [address] Bedside Glucoseon - FINGERSTICK GLU 350 mg/dL High 74-106 [facility] Comment on above: Result Comment: EDGAR GEMENT OF PATIENT CARE PER NURSING PROTOCOL Performed By: #### L 501.080 ####[facility] [address] [place], [address] FINGERSTICK GLU 322 mg/dL High 74-106 [facility] Comment on above: Result Comment: EDGAR GEMENT OF PATIENT CARE PER NURSING PROTOCOL Performed By: #### L 501.080 ####[facility] [address] [place], [address] FINGERSTICK GLU 340 mg/dL High 74-106 [facility] Comment on above: Result Comment: EDGAR GEMENT OF PATIENT CARE PER NURSING PROTOCOL Performed By: #### L 501.080 ####[facility] [address] [place], [address] CBC W/Diff, Automatedon 06-0 Absolute Neut Normal 2.0-7.7 [facility] Comment on above: Result Comment: Canc elled via OM: Order cancelled - Patient discharged Performed By: #### L 100.0100, L500.2500 ####[facility] [address] [place], [address] HCT Normal 37-47 [facility] Comment on above: Result Comment: Canc elled via OM: Order cancelled - Patient discharged Performed By: #### L 100.0100, L500.2500 ####[facility] [address] [place], [address] HGB Normal 12.0-15.0 [facility] Comment on above: Result Comment: Canc elled via OM: Order cancelled - Patient discharged Performed By: #### L 100.0100, L500.2500 ####[facility] [address] [place], [address] MCH Normal 27.0-32.0 [facility] Comment on above: Result Comment: Canc elled via OM: Order cancelled - Patient discharged Performed By: #### L 100.0100, L500.2500 ####[facility] [address] [place], [address] MCHC Normal 32-36 [facility] Comment on above: Result Comment: Canc elled via OM: Order cancelled - Patient discharged Performed By: #### L 100.0100, L500.2500 ####[facility] [address] [place], [address] MCV Normal 81-99 [facility] Comment on above: Result Comment: Canc elled via OM: Order cancelled - Patient discharged Performed By: #### L 100.0100, L500.2500 ####[facility] [address] [place], [address] NEUT% Normal 47-70 [facility] Comment on above: Result Comment: Canc elled via OM: Order cancelled - Patient discharged Performed By: #### L 100.0100, L500.2500 ####[facility] [address] [place], [address] PLT Normal 150-450 [facility] Comment on above: Result Comment: Canc elled via OM: Order cancelled - Patient discharged Performed By: #### L 100.0100, L500.2500 ####[facility] [address] [place], [address] RBC Normal 4.2-5.4 [facility] Comment on above: Result Comment: Canc elled via OM: Order cancelled - Patient discharged Performed By: #### L 100.0100, L500.2500 ####[facility] [address] [place], [address] RDW CV Normal 11.6-14.6 [facility] Comment on above: Result Comment: Canc elled via OM: Order cancelled - Patient discharged Performed By: #### L 100.0100, L500.2500 ####[facility] [address] [place], [address] RDW SD Normal 35.1-43.9 [facility] Comment on above: Result Comment: Canc elled via OM: Order cancelled - Patient discharged Performed By: #### L 100.0100, L500.2500 ####[facility] [address] [place], [address] WBC Normal 4.4-11.0 [facility] Comment on above: Result Comment: Canc elled via OM: Order cancelled - Patient discharged Performed By: #### L 100.0100, L500.2500 ####[facility] [address] [place], [address] Office Visiton 01-27-2025 Follow-up visit [id number] Kathleen Villa 1995 F Date Provider Department Center 01/27/2025 233-MISHEL ORTEZ [facility] DE None Family History Problem Relation Age of Onset Anxiety disorder Mother Multiple sclerosis Father Psoriasis Father Family Status - Relation Status Age at Mother Alive Father Alive Level of Service:62910 [place] OFFICE/OUTPATIENT ESTABLISHED MOD MDM 30 MIN Reason for Visit and Comments: Skin Lesion [[id number]] - (PKN) Normal [facility] Progress Noteon 01-27-2025 Progress Note DATE OF SERVICE: 01/27/2025 PATIENT NAME: Kathleen Villa : 1995 AGE: 29 y.o. CLINIC NUMBER: [id number] Visit type: Established patient Chief Complaint Patient [...] Adhesive? Yes- adhesives. Social History: Born/raised in [place]. Excessive sun exposure: Yes Used tanning beds: [...] )on 01-26-2025 BUN/CRE 7.8 RATIO Low 10-20 [facility] Comment on above: Performed By: #### L 100.0100, L500.2500 ####[facility] [address] [place], [address] Calcium [Mass/Vol] 8.5 mg/dL Normal 7.6-11.0 [facility] Comment on above: Performed By: #### L 100.0100, L500.2500 ####[facility] [address] [place], [address] Chloride [Moles/Vol] 97 mmol/L Low 98-108 [facility] Comment on above: Performed By: #### L 100.0100, L500.2500 ####[facility] [address] [place], [address] CO2 [Moles/Vol] 12.9 mmol/L Low 21.0-32.0 [facility] Comment on above: Performed By: #### L 100.0100, L500.2500 ####[facility] [address] [place], [address] Creatinine [Mass/Vol] 0.76 mg/dL Normal 0.70-1.20 [facility] Comment on above: Performed By: #### L 100.0100, L500.2500 ####[facility] [address] [place], [address] ECRCL 109.19 ml/min Normal 50-250 [facility] Comment on above: Performed By: #### L 100.0100, L500.2500 ####[facility] [address] [place], [address] GAP 24 High 5-15 [facility] Comment on above: Performed By: #### L 100.0100, L500.2500 ####[facility] [address] [place], [address] GFR/1.73 sq M.predicted among non-blacks MDRD (S/P/Bld) [Vol rate/Area] 109 mL/min/{1.73_m2} Normal >60 [facility] Comment on above: Result Comment: mL/m in/1.73m2 CKD-EPI Creatinine Equation (2020) Performed By: #### L 100.0100, L500.2500 ####[facility] [address] [place], [address] Glucose [Mass/Vol] 315 mg/dL High 70-99 [facility] Comment on above: Performed By: #### L 100.0100, L500.2500 ####[facility] [address] [place], [address] Potassium [Moles/Vol] 3.0 mmol/L Low 3.3-5.1 [facility] Comment on above: Performed By: #### L 100.0100, L500.2500 ####[facility] [address] [place], [address] Sodium [Moles/Vol] 133 mmol/L Normal 133-145 [facility] Comment on above: Performed By: #### L 100.0100, L500.2500 ####[facility] [address] [place], [address] Urea nitrogen [Mass/Vol] 6 mg/dL Normal 4-19 [facility] Comment on above: Performed By: #### L 100.0100, L500.2500 ####[facility] [address] [place], [address] Bedside Glucoseon 01-26-2024 FINGERSTICK GLU 328 mg/dL High 74-106 [facility] Comment on above: Result Comment: EDGAR GEMENT OF PATIENT CARE PER NURSING PROTOCOL Performed By: #### L 501.080 ####[facility] [address] [place], [address] FINGERSTICK GLU 306 mg/dL High 74-106 [facility] Comment on above: Result Comment: EDGAR GEMENT OF PATIENT CARE PER NURSING PROTOCOL Performed By: #### L 501.080 ####[facility] [address] [place], [address] CBC W/Diff, Automatedon 06-0 Absolute Lymph 1.50 X10 3/uL Normal 0.83-4.51 [facility] Comment on above: Performed By: #### L 100.0100, L500.2500 ####[facility] [address] [place], [address] Absolute Neut 13.5 X10 3/uL High 2.0-7.7 [facility] Comment on above: Performed By: #### L 100.0100, L500.2500 ####[facility] [address] [place], [address] Basophils/100 WBC (Bld) 0.3 % Normal 0-1 [facility] Comment on above: Performed By: #### L 100.0100, L500.2500 ####[facility] [address] [place], [address] Eosinophils/100 WBC (Bld) 0.0 % Normal 0-5 [facility] Comment on above: Performed By: #### L 100.0100, L500.2500 ####[facility] [address] [place], [address] Erythrocyte distribution width (RBC) [Ratio] 13.1 % Normal 11.6-14.6 [facility] Comment on above: Performed By: #### L 100.0100, L500.2500 ####[facility] [address] [place], [address] Hematocrit (Bld) [Volume fraction] 38.8 % Normal 37-47 [facility] Comment on above: Performed By: #### L 100.0100, L500.2500 ####[facility] [address] [place], [address] Hemoglobin (Bld) [Mass/Vol] 13.4 g/dL Normal 12.0-15.0 [facility] Comment on above: Performed By: #### L 100.0100, L500.2500 ####[facility] [address] [place], [address] IG% 1.300 High 0.0-0.9 [facility] Comment on above: Result Comment: IG% - Immature Granulocytes (promyelocytes, myelocytes andmetamyelocytes) > 1% indicates that a LEFT SHIFT is Present. Performed By: #### L 100.0100, L500.2500 ####[facility] [address] [place], [address] Lymphocytes/100 WBC (Bld) 9.3 % Low 19-41 [facility] Comment on above: Performed By: #### L 100.0100, L500.2500 ####[facility] [address] [place], [address] MCH (RBC) [Entitic mass] 30.0 pg Normal 27.0-32.0 [facility] Comment on above: Performed By: #### L 100.0100, L500.2500 ####[facility] [address] [place], [address] MCHC (RBC) [Mass/Vol] 34.5 g/dL Normal 32-36 [facility] Comment on above: Performed By: #### L 100.0100, L500.2500 ####[facility] [address] [place], [address] MCV (RBC) [Entitic vol] 86.8 fL Normal 81-99 [facility] Comment on above: Performed By: #### L 100.0100, L500.2500 ####[facility] [address] [place], [address] Monocytes/100 WBC (Bld) 5.2 % Normal 0-10 [facility] Comment on above: Performed By: #### L 100.0100, L500.2500 ####[facility] [address] [place], [address] Neutrophils/100 WBC (Bld) 83.9 % High 47-70 [facility] Comment on above: Performed By: #### L 100.0100, L500.2500 ####[facility] [address] [place], [address] Nucleated RBC (Bld) [#/Vol] 0 10*3/uL Normal 0-5 [facility] Comment on above: Performed By: #### L 100.0100, L500.2500 ####[facility] [address] [place], [address] Platelet mean volume (Bld) [Entitic vol] 11.5 fL Normal 6.2-12.0 [facility] Comment on above: Performed By: #### L 100.0100, L500.2500 ####[facility] [address] [place], [address] Platelets (Bld) [#/Vol] 169 10*3/uL Normal 150-450 [facility] Comment on above: Performed By: #### L 100.0100, L500.2500 ####[facility] [address] [place], [address] RBC (Bld) [#/Vol] 4.47 10*6/uL Normal 4.2-5.4 [facility] Comment on above: Performed By: #### L 100.0100, L500.2500 ####[facility] [address] [place], [address] RDW SD 41.1 fl Normal 35.1-43.9 [facility] Comment on above: Performed By: #### L 100.0100, L500.2500 ####[facility] [address] [place], [address] WBC (Bld) [#/Vol] 16.1 10*3/uL High 4.4-11.0 [facility] Comment on above: Performed By: #### L 100.0100, L500.2500 ####[facility] [address] [place], [address] Discharge Instructionon 06-0 Discharge Instruction Normal [facility] Basic Metabolic Profile (BMP )on 01-25-2025 BUN/CRE 8.0 RATIO Low 10-20 [facility] Comment on above: Performed By: #### L 100.0100, L500.2500 ####[facility] [address] [place], [address] Calcium [Mass/Vol] 8.1 mg/dL Normal 7.6-11.0 [facility] Comment on above: Performed By: #### L 100.0100, L500.2500 ####[facility] [address] [place], [address] Chloride [Moles/Vol] 100 mmol/L Normal 98-108 [facility] Comment on above: Performed By: #### L 100.0100, L500.2500 ####[facility] [address] [place], [address] CO2 [Moles/Vol] 14.7 mmol/L Low 21.0-32.0 [facility] Comment on above: Performed By: #### L 100.0100, L500.2500 ####[facility] [address] [place], [address] Creatinine [Mass/Vol] 0.66 mg/dL Low 0.70-1.20 [facility] Comment on above: Performed By: #### L 100.0100, L500.2500 ####[facility] [address] [place], [address] ECRCL 125.73 ml/min Normal 50-250 [facility] Comment on above: Performed By: #### L 100.0100, L500.2500 ####[facility] [address] [place], [address] GAP 22 High 5-15 [facility] Comment on above: Performed By: #### L 100.0100, L500.2500 ####[facility] [address] [place], [address] GFR/1.73 sq M.predicted among non-blacks MDRD (S/P/Bld) [Vol rate/Area] 121 mL/min/{1.73_m2} Normal >60 [facility] Comment on above: Result Comment: mL/m in/1.73m2 CKD-EPI Creatinine Equation (2020) Performed By: #### L 100.0100, L500.2500 ####[facility] [address] [place], [address] Glucose [Mass/Vol] 287 mg/dL High 70-99 [facility] Comment on above: Performed By: #### L 100.0100, L500.2500 ####[facility] [address] [place], [address] Potassium [Moles/Vol] 2.9 mmol/L Low 3.3-5.1 [facility] Comment on above: Performed By: #### L 100.0100, L500.2500 ####[facility] [address] [place], [address] Sodium [Moles/Vol] 136 mmol/L Normal 133-145 [facility] Comment on above: Performed By: #### L 100.0100, L500.2500 ####[facility] [address] [place], [address] Urea nitrogen [Mass/Vol] 5 mg/dL Normal 4-19 [facility] Comment on above: Performed By: #### L 100.0100, L500.2500 ####[facility] [address] [place], [address] Bedside Glucoseon --2024 FINGERSTICK GLU 352 mg/dL High 74-106 [facility] Comment on above: Result Comment: EDGAR GEMENT OF PATIENT CARE PER NURSING PROTOCOL Performed By: #### L 501.080 ####[facility] [address] [place], [address] FINGERSTICK GLU 220 mg/dL High 74-106 [facility] Comment on above: Result Comment: EDGAR GEMENT OF PATIENT CARE PER NURSING PROTOCOL Performed By: #### L 501.080 ####[facility] [address] [place], [address] CBC W/Diff, Automatedon 05-3 Absolute Lymph 1.08 X10 3/uL Normal 0.83-4.51 [facility] Comment on above: Performed By: #### L 100.0100, L500.2500 ####[facility] [address] [place], [address] Absolute Neut 19.8 X10 3/uL High 2.0-7.7 [facility] Comment on above: Performed By: #### L 100.0100, L500.2500 ####[facility] [address] [place], [address] Basophils/100 WBC (Bld) 0.2 % Normal 0-1 [facility] Comment on above: Performed By: #### L 100.0100, L500.2500 ####[facility] [address] [place], [address] Eosinophils/100 WBC (Bld) 0.0 % Normal 0-5 [facility] Comment on above: Performed By: #### L 100.0100, L500.2500 ####[facility] [address] [place], [address] Erythrocyte distribution width (RBC) [Ratio] 12.9 % Normal 11.6-14.6 [facility] Comment on above: Performed By: #### L 100.0100, L500.2500 ####[facility] [address] [place], [address] Hematocrit (Bld) [Volume fraction] 32.9 % Low 37-47 [facility] Comment on above: Performed By: #### L 100.0100, L500.2500 ####[facility] [address] [place], [address] Hemoglobin (Bld) [Mass/Vol] 11.3 g/dL Low 12.0-15.0 [facility] Comment on above: Performed By: #### L 100.0100, L500.2500 ####[facility] [address] [place], [address] IG% 1.100 High 0.0-0.9 [facility] Comment on above: Result Comment: IG% - Immature Granulocytes (promyelocytes, myelocytes andmetamyelocytes) > 1% indicates that a LEFT SHIFT is Present. Performed By: #### L 100.0100, L500.2500 ####[facility] [address] [place], [address] Lymphocytes/100 WBC (Bld) 4.8 % Low 19-41 [facility] Comment on above: Performed By: #### L 100.0100, L500.2500 ####[facility] [address] [place], [address] MCH (RBC) [Entitic mass] 29.7 pg Normal 27.0-32.0 [facility] Comment on above: Performed By: #### L 100.0100, L500.2500 ####[facility] [address] [place], [address] MCHC (RBC) [Mass/Vol] 34.3 g/dL Normal 32-36 [facility] Comment on above: Performed By: #### L 100.0100, L500.2500 ####[facility] [address] [place], [address] MCV (RBC) [Entitic vol] 86.6 fL Normal 81-99 [facility] Comment on above: Performed By: #### L 100.0100, L500.2500 ####[facility] [address] [place], [address] Monocytes/100 WBC (Bld) 6.8 % Normal 0-10 [facility] Comment on above: Performed By: #### L 100.0100, L500.2500 ####[facility] [address] [place], [address] Neutrophils/100 WBC (Bld) 87.1 % High 47-70 [facility] Comment on above: Performed By: #### L 100.0100, L500.2500 ####[facility] [address] [place], [address] Nucleated RBC (Bld) [#/Vol] 0 10*3/uL Normal 0-5 [facility] Comment on above: Performed By: #### L 100.0100, L500.2500 ####[facility] [address] [place], [address] Platelet mean volume (Bld) [Entitic vol] 12.0 fL Normal 6.2-12.0 [facility] Comment on above: Performed By: #### L 100.0100, L500.2500 ####[facility] [address] [place], [address] Platelets (Bld) [#/Vol] 129 10*3/uL Low 150-450 [facility] Comment on above: Performed By: #### L 100.0100, L500.2500 ####[facility] [address] [place], [address] RBC (Bld) [#/Vol] 3.80 10*6/uL Low 4.2-5.4 [facility] Comment on above: Performed By: #### L 100.0100, L500.2500 ####[facility] [address] [place], [address] RDW SD 40.6 fl Normal 35.1-43.9 [facility] Comment on above: Performed By: #### L 100.0100, L500.2500 ####[facility] [address] [place], [address] WBC (Bld) [#/Vol] 22.7 10*3/uL High 4.4-11.0 [facility] Comment on above: Performed By: #### L 100.0100, L500.2500 ####[facility] [address] [place], [address] Magnesiumon 01-25-2025 Magnesium [Mass/Vol] 1.6 mg/dL Normal 1.5-2.2 [facility] Comment on above: Performed By: #### L 501.2300, L501.5200 ####[facility] [address] [place], [address] Phosphoruson 01-25-2025 Phosphate [Mass/Vol] 2.1 mg/dL Low 2.7-4.5 [facility] Comment on above: Performed By: #### L 501.2300, L501.5200 ####[facility] [address] [place], [address] Basic Metabolic Profile (BMP )on 01-24-2025 BUN/CRE 6.3 RATIO Low 10-20 [facility] Comment on above: Performed By: #### L 500.2500 ####[facility] [address] [place], [address] Calcium [Mass/Vol] 7.6 mg/dL Normal 7.6-11.0 [facility] Comment on above: Performed By: #### L 500.2500 ####[facility] [address] [place], [address] Chloride [Moles/Vol] 111 mmol/L High 98-108 [facility] Comment on above: Performed By: #### L 500.2500 ####[facility] [address] [place], [address] CO2 [Moles/Vol] 18.8 mmol/L Low 21.0-32.0 [facility] Comment on above: Performed By: #### L 500.2500 ####[facility] [address] [place], [address] Creatinine [Mass/Vol] 0.64 mg/dL Low 0.70-1.20 [facility] Comment on above: Performed By: #### L 500.2500 ####[facility] [address] [place], [address] ECRCL 129.66 ml/min Normal 50-250 [facility] Comment on above: Performed By: #### L 500.2500 ####[facility] [address] [place], [address] GAP 6 Normal 5-15 [facility] Comment on above: Performed By: #### L 500.2500 ####[facility] [address] [place], [address] GFR/1.73 sq M.predicted among non-blacks MDRD (S/P/Bld) [Vol rate/Area] 122 mL/min/{1.73_m2} Normal >60 [facility] Comment on above: Result Comment: mL/m in/1.73m2 CKD-EPI Creatinine Equation (2020) Performed By: #### L 500.2500 ####[facility] [address] [place], [address] Glucose [Mass/Vol] 182 mg/dL High 70-99 [facility] Comment on above: Performed By: #### L 500.2500 ####[facility] [address] [place], [address] Potassium [Moles/Vol] 3.9 mmol/L Normal 3.3-5.1 [facility] Comment on above: Performed By: #### L 500.2500 ####[facility] [address] [place], [address] Sodium [Moles/Vol] 136 mmol/L Normal 133-145 [facility] Comment on above: Performed By: #### L 500.2500 ####[facility] [address] [place], [address] Urea nitrogen [Mass/Vol] 4 mg/dL Normal 4-19 [facility] Comment on above: Performed By: #### L 500.2500 ####[facility] [address] [place], [address] CO2 [Moles/Vol] 9.9 mmol/L Invalid Interpretation Code 21.0-32.0 [facility] Comment on above: Order Comment: Call MD with results STAT Result Comment: Crit ical Result(s) Called at: 01/23/2025-0533 by: ROSLYN ARIAS.???Results read back by same. AMENDED REPORT 01/24/25 0107 CO2 previously reported as: 9.9 *L mmol/LCritical Result(s) Called at: by:??Results read back bysame.Critical Result(s) Called at:0533 by: ROSLYN CHANDLER??Results read back by same.Critical Result(s) Called at: by:??Results read back bysame.Critical Result(s) Called at: by:??Results read back bysame.Critical Result(s) Called at:0533 by: ROSLYN CHANDLER??Results read back by same.Critical Result(s) Called at:01/24/2025-00:50 by: Flor.??Results read back by same. Performed By: #### L 500.2500 ####[facility] [address] [place], [place], [phone] BUN/CRE 8.6 RATIO Low 10-20 [facility] Comment on above: Order Comment: Call with results STAT Performed By: #### L 500.2500 ####[facility] [address] [place], [place], [phone] Calcium [Mass/Vol] 7.8 mg/dL Normal 7.6-11.0 [facility] Comment on above: Order Comment: Call with results STAT Performed By: #### L 500.2500 ####[facility] [address] [place], [address] Chloride [Moles/Vol] 113 mmol/L High 98-108 [facility] Comment on above: Order Comment: Call with results STAT Performed By: #### L 500.2500 ####[facility] [address] [place], [address] CO2 [Moles/Vol] 18.6 mmol/L Low 21.0-32.0 [facility] Comment on above: Order Comment: Call MD with results STAT Performed By: #### L 500.2500 ####[facility] [address] [place], [address] Creatinine [Mass/Vol] 0.65 mg/dL Low 0.70-1.20 [facility] Comment on above: Order Comment: Call MD with results STAT Performed By: #### L 500.2500 ####[facility] [address] [place], [address] ECRCL 127.66 ml/min Normal 50-250 [facility] Comment on above: Order Comment: Call MD with results STAT Performed By: #### L 500.2500 ####[facility] [address] [place], [address] GAP 9 Normal 5-15 [facility] Comment on above: Order Comment: Call MD with results STAT Performed By: #### L 500.2500 ####[facility] [address] [place], [address] GFR/1.73 sq M.predicted among non-blacks MDRD (S/P/Bld) [Vol rate/Area] 121 mL/min/{1.73_m2} Normal >60 [facility] Comment on above: Order Comment: Call MD with results STAT Result Comment: mL/m in/1.73m2 CKD-EPI Creatinine Equation (2020) Performed By: #### L 500.2500 ####[facility] [address] [place], [address] Glucose [Mass/Vol] 121 mg/dL High 70-99 [facility] Comment on above: Order Comment: Call MD with results STAT Performed By: #### L 500.2500 ####[facility] [address] [place], [address] Potassium [Moles/Vol] 2.9 mmol/L Low 3.3-5.1 [facility] Comment on above: Order Comment: Call MD with results STAT Performed By: #### L 500.2500 ####[facility] [address] [place], [address] Sodium [Moles/Vol] 141 mmol/L Normal 133-145 [facility] Comment on above: Order Comment: Call MD with results STAT Performed By: #### L 500.2500 ####[facility] [address] [place], [address] Urea nitrogen [Mass/Vol] 6 mg/dL Normal 4-19 [facility] Comment on above: Order Comment: Call MD with results STAT Performed By: #### L 500.2500 ####[facility] [address] [place], [address] Bedside Glucoseon 01-24-2025 FINGERSTICK GLU 304 mg/dL High 74-106 [facility] Comment on above: Result Comment: EDGAR GEMENT OF PATIENT CARE PER NURSING PROTOCOL Performed By: #### L 501.080 ####[facility] [address] [place], [address] FINGERSTICK GLU 239 mg/dL High -[address] [place] [address] Comment on above: Result Comment: EDGAR GEMENT OF PATIENT CARE PER NURSING PROTOCOL Performed By: #### L 501.080 ####[facility] [address] [place], [address] FINGERSTICK GLU 400 mg/dL High -106 [facility] Comment on above: Result Comment: EDGAR GEMENT OF PATIENT CARE PER NURSING PROTOCOL Performed By: #### L 501.080 ####[facility] [address] [place], [address] FINGERSTICK GLU 309 mg/dL High 74-106 [facility] Comment on above: Result Comment: EDGAR GEMENT OF PATIENT CARE PER NURSING PROTOCOL Performed By: #### L 501.080 ####[facility] [address] [place], [address] FINGERSTICK GLU 261 mg/dL High 74-106 [facility] Comment on above: Result Comment: EDGAR GEMENT OF PATIENT CARE PER NURSING PROTOCOL Performed By: #### L 501.080 ####[facility] [address] [place], [address] FINGERSTICK GLU 129 mg/dL High 74-106 [facility] Comment on above: Result Comment: EDGAR GEMENT OF PATIENT CARE PER NURSING PROTOCOL Performed By: #### L 501.080 ####[facility] [address] [place], [address] FINGERSTICK GLU 177 mg/dL High 74-106 [facility] Comment on above: Result Comment: EDGAR GEMENT OF PATIENT CARE PER NURSING PROTOCOL Performed By: #### L 501.080 ####[facility] [address] [place], [address] FINGERSTICK GLU 167 mg/dL High 74-106 [facility] Comment on above: Result Comment: EDGAR GEMENT OF PATIENT CARE PER NURSING PROTOCOL Performed By: #### L 501.080 ####[facility] [address] [place], [address] FINGERSTICK GLU 172 mg/dL High 74-106 [facility] Comment on above: Result Comment: EDGAR GEMENT OF PATIENT CARE PER NURSING PROTOCOL Performed By: #### L 501.080 ####[facility] [address] [place], [address] FINGERSTICK GLU 156 mg/dL High 74-106 [facility] Comment on above: Result Comment: EDGAR GEMENT OF PATIENT CARE PER NURSING PROTOCOL Performed By: #### L 501.080 ####[facility] [address] [place], [address] FINGERSTICK GLU 123 mg/dL High 74-106 [facility] [facility] Comment on above: Result Comment: EDGAR GEMENT OF PATIENT CARE PER NURSING PROTOCOL Performed By: #### L 501.080 ####[facility] [address] [place], [address] FINGERSTICK GLU 97 mg/dL Normal 74-106 [facility] Comment on above: Result Comment: EDGAR GEMENT OF PATIENT CARE PER NURSING PROTOCOL Performed By: #### L 501.080 ####[facility] [address] [place], [address] FINGERSTICK GLU 115 mg/dL High 74-106 [facility] Comment on above: Result Comment: EDGAR GEMENT OF PATIENT CARE PER NURSING PROTOCOL Performed By: #### L 501.080 ####[facility] [address] [place], [address] FINGERSTICK GLU 143 mg/dL High -106 [facility] Comment on above: Result Comment: EDGAR GEMENT OF PATIENT CARE PER NURSING PROTOCOL Performed By: #### L 501.080 ####[facility] [address] [place], [address] CBC W/Diff, Automatedon 05-3 SMEAR COMMENT COMMENT Normal [facility] Comment on above: Result Comment: LYMP HOPENIA. Performed By: #### L 100.0100 ####[facility] [address] [place], [address] PLT EST MOD DEC Normal ADEQ [facility] Comment on above: Performed By: #### L 100.0100 ####[facility] [address] [place], [address] Basic Metabolic Profile (BMP )on 01-23-2025 BUN/CRE 11.7 RATIO Normal 10-20 [facility] Comment on above: Order Comment: Call MD with results STAT Performed By: #### L 500.2500 ####[facility] [address] [place], [address] Calcium [Mass/Vol] 7.7 mg/dL Normal 7.6-11.0 [facility] Comment on above: Order Comment: Call MD with results STAT Performed By: #### L 500.2500 ####[facility] [address] [place], [address] Chloride [Moles/Vol] 112 mmol/L High 98-108 [facility] Comment on above: Order Comment: Call MD with results STAT Performed By: #### L 500.2500 ####[facility] [address] [place], [address] CO2 [Moles/Vol] 16.8 mmol/L Low 21.0-32.0 [facility] Comment on above: Order Comment: Call MD with results STAT Performed By: #### L 500.2500 ####[facility] [address] [place], [address] Creatinine [Mass/Vol] 0.64 mg/dL Low 0.70-1.20 [facility] Comment on above: Order Comment: Call MD with results STAT Performed By: #### L 500.2500 ####[facility] [address] [place], [address] ECRCL 129.66 ml/min Normal 50-250 [facility] Comment on above: Order Comment: Call MD with results STAT Performed By: #### L 500.2500 ####[facility] [address] [place], [address] GAP 10 Normal 5-15 [facility] Comment on above: Order Comment: Call MD with results STAT Performed By: #### L 500.2500 ####[facility] [address] [place], [address] GFR/1.73 sq M.predicted among non-blacks MDRD (S/P/Bld) [Vol rate/Area] 122 mL/min/{1.73_m2} Normal >60 [facility] Comment on above: Order Comment: Call MD with results STAT Result Comment: mL/m in/1.73m2 CKD-EPI Creatinine Equation (2020) Performed By: #### L 500.2500 ####[facility] [address] [place], [address] Glucose [Mass/Vol] 150 mg/dL High 70-99 [facility] Comment on above: Order Comment: Call MD with results STAT Performed By: #### L 500.2500 ####[facility] [address] [place], [address] Potassium [Moles/Vol] 3.2 mmol/L Low 3.3-5.1 [facility] Comment on above: Order Comment: Call MD with results STAT Performed By: #### L 500.2500 ####[facility] [address] [place], [address] Sodium [Moles/Vol] 139 mmol/L Normal 133-145 [facility] Comment on above: Order Comment: Call MD with results STAT Performed By: #### L 500.2500 ####[facility] [address] [place], [address] Urea nitrogen [Mass/Vol] 8 mg/dL Normal 4-19 [facility] Comment on above: Order Comment: Call MD with results STAT Performed By: #### L 500.2500 ####[facility] [address] [place], [address] BUN/CRE 14.4 RATIO Normal 10-20 [facility] Comment on above: Order Comment: Call MD with results STAT Performed By: #### L 500.2500 ####[facility] [address] [place], [address] Calcium [Mass/Vol] 7.5 mg/dL Low 7.6-11.0 [facility] Comment on above: Order Comment: Call MD with results STAT Performed By: #### L 500.2500 ####[facility] [address] [place], [address] Chloride [Moles/Vol] 112 mmol/L High 98-108 [facility] Comment on above: Order Comment: Call MD with results STAT Performed By: #### L 500.2500 ####[facility] [address] [place], [address] CO2 [Moles/Vol] 13.6 mmol/L Low 21.0-32.0 [facility] Comment on above: Order Comment: Call MD with results STAT Performed By: #### L 500.2500 ####[facility] [address] [place], [address] Creatinine [Mass/Vol] 0.69 mg/dL Low 0.70-1.20 [facility] Comment on above: Order Comment: Call MD with results STAT Performed By: #### L 500.2500 ####[facility] [address] [place], [address] ECRCL 120.26 ml/min Normal 50-250 [facility] Comment on above: Order Comment: Call MD with results STAT Performed By: #### L 500.2500 ####[facility] [address] [place], [address] GAP 13 Normal 5-15 [facility] Comment on above: Order Comment: Call MD with results STAT Performed By: #### L 500.2500 ####[facility] [address] [place], [address] GFR/1.73 sq M.predicted among non-blacks MDRD (S/P/Bld) [Vol rate/Area] 120 mL/min/{1.73_m2} Normal >60 [facility] Comment on above: Order Comment: Call MD with results STAT Result Comment: mL/m in/1.73m2 CKD-EPI Creatinine Equation (2020) Performed By: #### L 500.2500 ####[facility] [address] [place], [address] Glucose [Mass/Vol] 139 mg/dL High 70-99 [facility] Comment on above: Order Comment: Call MD with results STAT Performed By: #### L 500.2500 ####[facility] [address] [place], [address] Potassium [Moles/Vol] 3.4 mmol/L Normal 3.3-5.1 [facility] Comment on above: Order Comment: Call MD with results STAT Performed By: #### L 500.2500 ####[facility] [address] [place], [address] Sodium [Moles/Vol] 139 mmol/L Normal 133-145 [facility] Comment on above: Order Comment: Call MD with results STAT Performed By: #### L 500.2500 ####[facility] [address] [place], [address] Urea nitrogen [Mass/Vol] 10 mg/dL Normal 4-19 [facility] Comment on above: Order Comment: Call MD with results STAT Performed By: #### L 500.2500 ####[facility] [address] [place], [address] BUN/CRE 16.3 RATIO Normal 10-20 [facility] Comment on above: Order Comment: Call MD with results STAT Performed By: #### L 500.2500 ####[facility] [address] [place], [address] Calcium [Mass/Vol] 7.6 mg/dL Normal 7.6-11.0 [facility] Comment on above: Order Comment: Call MD with results STAT Performed By: #### L 500.2500 ####[facility] [address] [place], [address] Chloride [Moles/Vol] 110 mmol/L High 98-108 [facility] Comment on above: Order Comment: Call MD with results STAT Performed By: #### L 500.2500 ####[facility] [address] [place], [address] CO2 [Moles/Vol] 12.5 mmol/L Low 21.0-32.0 [facility] Comment on above: Order Comment: Call MD with results STAT Performed By: #### L 500.2500 ####[facility] [address] [place], [address] Creatinine [Mass/Vol] 0.72 mg/dL Normal 0.70-1.20 [facility] Comment on above: Order Comment: Call MD with results STAT Performed By: #### L 500.2500 ####[facility] [address] [place], [address] ECRCL 115.25 ml/min Normal 50-250 [facility] Comment on above: Order Comment: Call MD with results STAT Performed By: #### L 500.2500 ####[facility] [address] [place], [address] GAP 16 High 5-15 [facility] Comment on above: Order Comment: Call MD with results STAT Performed By: #### L 500.2500 ####[facility] [address] [place], [address] GFR/1.73 sq M.predicted among non-blacks MDRD (S/P/Bld) [Vol rate/Area] 115 mL/min/{1.73_m2} Normal >60 [facility] Comment on above: Order Comment: Call MD with results STAT Result Comment: mL/m in/1.73m2 CKD-EPI Creatinine Equation (2020) Performed By: #### L 500.2500 ####[facility] [address] [place], [address] Glucose [Mass/Vol] 176 mg/dL High 70-99 [facility] Comment on above: Order Comment: Call MD with results STAT Performed By: #### L 500.2500 ####[facility] [address] [place], [address] Potassium [Moles/Vol] 3.7 mmol/L Normal 3.3-5.1 [facility] Comment on above: Order Comment: Call MD with results STAT Performed By: #### L 500.2500 ####[facility] [address] [place], [address] Sodium [Moles/Vol] 138 mmol/L Normal 133-145 [facility] Comment on above: Order Comment: Call MD with results STAT Performed By: #### L 500.2500 ####[facility] [address] [place], [address] Urea nitrogen [Mass/Vol] 12 mg/dL Normal 4-19 [facility] Comment on above: Order Comment: Call MD with results STAT Performed By: #### L 500.2500 ####[facility] [address] [place], [address] BUN/CRE 16.2 RATIO Normal 10-20 [facility] Comment on above: Order Comment: Call MD with results STAT Performed By: #### L 500.2500 ####[facility] [address] [place], [address] Calcium [Mass/Vol] 7.6 mg/dL Normal 7.6-11.0 [facility] Comment on above: Order Comment: Call MD with results STAT Performed By: #### L 500.2500 ####[facility] [address] [place], [address] Chloride [Moles/Vol] 111 mmol/L High 98-108 [facility] Comment on above: Order Comment: Call MD with results STAT Performed By: #### L 500.2500 ####[facility] [address] [place], [address] CO2 [Moles/Vol] 11.0 mmol/L Low 21.0-32.0 [facility] Comment on above: Order Comment: Call MD with results STAT Performed By: #### L 500.2500 ####[facility] [address] [place], [address] Creatinine [Mass/Vol] 0.81 mg/dL Normal 0.70-1.20 [facility] Comment on above: Order Comment: Call MD with results STAT Performed By: #### L 500.2500 ####[facility] [address] [place], [address] ECRCL 102.45 ml/min Normal 50-250 [facility] Comment on above: Order Comment: Call MD with results STAT Performed By: #### L 500.2500 ####[facility] [address] [place], [address] GAP 18 High 5-15 [facility] Comment on above: Order Comment: Call MD with results STAT Performed By: #### L 500.2500 ####[facility] [address] [place], [address] GFR/1.73 sq M.predicted among non-blacks MDRD (S/P/Bld) [Vol rate/Area] 100 mL/min/{1.73_m2} Normal >60 [facility] Comment on above: Order Comment: Call MD with results STAT Result Comment: mL/m in/1.73m2 CKD-EPI Creatinine Equation (2020) Performed By: #### L 500.2500 ####[facility] [address] [place], [address] Glucose [Mass/Vol] 209 mg/dL High 70-99 [facility] Comment on above: Order Comment: Call MD with results STAT Performed By: #### L 500.2500 ####[facility] [address] [place], [address] Potassium [Moles/Vol] 4.5 mmol/L Normal 3.3-5.1 [facility] Comment on above: Order Comment: Call MD with results STAT Result Comment: Hemo lysis present, Results??could be affected.?? Performed By: #### L 500.2500 ####[facility] [address] [place], [address] Sodium [Moles/Vol] 140 mmol/L Normal 133-145 [facility] Comment on above: Order Comment: Call MD with results STAT Performed By: #### L 500.2500 ####[facility] [address] [place], [address] Urea nitrogen [Mass/Vol] 13 mg/dL Normal 4-19 [facility] Comment on above: Order Comment: Call MD with results STAT Performed By: #### L 500.2500 ####[facility] [address] [place], [address] BUN/CRE 21.2 RATIO High 10-20 [facility] Comment on above: Order Comment: Call MD with results STAT Performed By: #### L 500.2500 ####[facility] [address] [place], [address] Calcium [Mass/Vol] 8.4 mg/dL Normal 7.6-11.0 [facility] Comment on above: Order Comment: Call MD with results STAT Performed By: #### L 500.2500 ####[facility] [address] [place], [address] Chloride [Moles/Vol] 102 mmol/L Normal 98-108 [facility] Comment on above: Order Comment: Call MD with results STAT Performed By: #### L 500.2500 ####[facility] [address] [place], [address] CO2 [Moles/Vol] 7.2 mmol/L Invalid Interpretation Code 21.0-32.0 [facility] Comment on above: Order Comment: Call MD with results STAT Result Comment: Crit ical Result(s) Called at: by:??Results read back bysame.Critical Result(s) Called at:0104 by: ROSLYN HAVEN TO LINDAFORREST??Results read back by same. Performed By: #### L 500.2500 ####[facility] [address] [place], [address] Creatinine [Mass/Vol] 1.01 mg/dL Normal 0.70-1.20 [facility] Comment on above: Order Comment: Call MD with results STAT Performed By: #### L 500.2500 ####[facility] [address] [place], [address] ECRCL 82.16 ml/min Normal 50-250 [facility] Comment on above: Order Comment: Call MD with results STAT Performed By: #### L 500.2500 ####[facility] [address] [place], [address] GAP 26 High 5-15 [facility] Comment on above: Order Comment: Call MD with results STAT Performed By: #### L 500.2500 ####[facility] [address] [place], [address] GFR/1.73 sq M.predicted among non-blacks MDRD (S/P/Bld) [Vol rate/Area] 77 mL/min/{1.73_m2} Normal >60 [facility] Comment on above: Order Comment: Call MD with results STAT Result Comment: mL/m in/1.73m2 CKD-EPI Creatinine Equation (2020) Performed By: #### L 500.2500 ####[facility] [address] [place], [address] Glucose [Mass/Vol] 330 mg/dL High 70-99 [facility] Comment on above: Order Comment: Call MD with results STAT Performed By: #### L 500.2500 ####[facility] [address] [place], [address] Potassium [Moles/Vol] 4.4 mmol/L Normal 3.3-5.1 [facility] Comment on above: Order Comment: Call MD with results STAT Result Comment: Hemo lysis present, Results??could be affected.?? Performed By: #### L 500.2500 ####[facility] [address] [place], [address] Sodium [Moles/Vol] 135 mmol/L Normal 133-145 [facility] Comment on above: Order Comment: Call MD with results STAT Performed By: #### L 500.2500 ####[facility] [address] [place], [address] Urea nitrogen [Mass/Vol] 21 mg/dL High 4-19 [facility] Comment on above: Order Comment: Call MD with results STAT Performed By: #### L 500.2500 ####[facility] [address] [place], [address] Bedside Glucoseon 01-23-2025 FINGERSTICK GLU 150 mg/dL High 74-106 [facility] Comment on above: Result Comment: EDGAR GEMENT OF PATIENT CARE PER NURSING PROTOCOL Performed By: #### L 501.080 ####[facility] [address] [place], [address] FINGERSTICK GLU 170 mg/dL High 74-106 [facility] Comment on above: Result Comment: EDGAR GEMENT OF PATIENT CARE PER NURSING PROTOCOL Performed By: #### L 501.080 ####[facility] [address] [place], [address] FINGERSTICK GLU 134 mg/dL High 74-106 [facility] Comment on above: Result Comment: EDGAR GEMENT OF PATIENT CARE PER NURSING PROTOCOL Performed By: #### L 501.080 ####[facility] [address] [place], [address] FINGERSTICK GLU 134 mg/dL High 74-106 [facility] Comment on above: Result Comment: EDGAR GEMENT OF PATIENT CARE PER NURSING PROTOCOL Performed By: #### L 501.080 ####[facility] [address] [place], [address] FINGERSTICK GLU 145 mg/dL High 74-106 [facility] Comment on above: Result Comment: EDGAR GEMENT OF PATIENT CARE PER NURSING PROTOCOL Performed By: #### L 501.080 ####[facility] [address] [place], [address] FINGERSTICK GLU 136 mg/dL High 74-106 [facility] Comment on above: Result Comment: EDGAR GEMENT OF PATIENT CARE PER NURSING PROTOCOL Performed By: #### L 501.080 ####[facility] [address] [place], [address] FINGERSTICK GLU 128 mg/dL High 74-106 [facility] Comment on above: Result Comment: EDGAR GEMENT OF PATIENT CARE PER NURSING PROTOCOL Performed By: #### L 501.080 ####[facility] [address] [place], [address] FINGERSTICK GLU 127 mg/dL High 74-106 [facility] Comment on above: Result Comment: EDGAR GEMENT OF PATIENT CARE PER NURSING PROTOCOL Performed By: #### L 501.080 ####[facility] [address] [place], [address] FINGERSTICK GLU 120 mg/dL High 74-106 [facility] Comment on above: Result Comment: EDGAR GEMENT OF PATIENT CARE PER NURSING PROTOCOL Performed By: #### L 501.080 ####[facility] [address] [place], [address] FINGERSTICK GLU 127 mg/dL High 74-106 [facility] Comment on above: Result Comment: EDGAR GEMENT OF PATIENT CARE PER NURSING PROTOCOL Performed By: #### L 501.080 ####[facility] [address] [place], [address] FINGERSTICK GLU 176 mg/dL High 74-106 [facility] Comment on above: Result Comment: EDGAR GEMENT OF PATIENT CARE PER NURSING PROTOCOL Performed By: #### L 501.080 ####[facility] [address] [place], [address] FINGERSTICK GLU 156 mg/dL High 74-106 [facility] Comment on above: Result Comment: EDGAR GEMENT OF PATIENT CARE PER NURSING PROTOCOL Performed By: #### L 501.080 ####[facility] [address] [place], [address] FINGERSTICK GLU 177 mg/dL High -106 [facility] Comment on above: Result Comment: EDGAR GEMENT OF PATIENT CARE PER NURSING PROTOCOL Performed By: #### L 501.080 ####[facility] [address] [place], [address] FINGERSTICK GLU 200 mg/dL High -106 [facility] Comment on above: Result Comment: EDGAR GEMENT OF PATIENT CARE PER NURSING PROTOCOL Performed By: #### L 501.080 ####[facility] [address] [place], [address] FINGERSTICK GLU 203 mg/dL High -106 [facility] Comment on above: Result Comment: EDGAR GEMENT OF PATIENT CARE PER NURSING PROTOCOL Performed By: #### L 501.080 ####[facility] [address] [place], [address] FINGERSTICK GLU 214 mg/dL High -106 [facility] Comment on above: Result Comment: EDGAR GEMENT OF PATIENT CARE PER NURSING PROTOCOL Performed By: #### L 501.080 ####[facility] [address] [place], [address] FINGERSTICK GLU 217 mg/dL High 74-106 [facility] Comment on above: Result Comment: EDGAR GEMENT OF PATIENT CARE PER NURSING PROTOCOL Performed By: #### L 501.080 ####[facility] [address] [place], [address] FINGERSTICK GLU 230 mg/dL High [address] [place] [address] Comment on above: Result Comment: EDGAR GEMENT OF PATIENT CARE PER NURSING PROTOCOL Performed By: #### L 501.080 ####[facility] [address] [place], [address] FINGERSTICK GLU 253 mg/dL High [address] [place] [address] Comment on above: Result Comment: EDGAR GEMENT OF PATIENT CARE PER NURSING PROTOCOL Performed By: #### L 501.080 ####[facility] [address] [place], [address] FINGERSTICK GLU 286 mg/dL High [address] [place] [address] Comment on above: Result Comment: EDGAR GEMENT OF PATIENT CARE PER NURSING PROTOCOL Performed By: #### L 501.080 ####[facility] [address] [place], [address] FINGERSTICK GLU 258 mg/dL High [address] [place] [address] Comment on above: Result Comment: EDGAR GEMENT OF PATIENT CARE PER NURSING PROTOCOL Performed By: #### L 501.080 ####[facility] [address] [place], [address] FINGERSTICK GLU 269 mg/dL High [address] [place] [address] Comment on above: Result Comment: EDGAR GEMENT OF PATIENT CARE PER NURSING PROTOCOL Performed By: #### L 501.080 ####[facility] [address] [place], [address] CBC W/Diff, Automatedon - SMEAR COMMENT SCANNED Normal [facility] Comment on above: Performed By: #### L 100.0100 ####[facility] [address] [place], [address] Basic Metabolic Profile (BMP )on 01-22-2025 BUN/CRE 21.4 RATIO High 10-20 [facility] Comment on above: Performed By: #### L 100.0100, L500.2500, L501.2450, L500.3400, L700.6800 ####[facility] [address] [place], [address] Calcium [Mass/Vol] 9.4 mg/dL Normal 7.6-11.0 [facility] Comment on above: Performed By: #### L 100.0100, L500.2500, L501.2450, L500.3400, L700.6800 ####[facility] [address] [place], [address] Chloride [Moles/Vol] 92 mmol/L Low 98-108 [facility] Comment on above: Performed By: #### L 100.0100, L500.2500, L501.2450, L500.3400, L700.6800 ####[facility] [address] [place], [address] CO2 [Moles/Vol] 6.3 mmol/L Invalid Interpretation Code 21.0-32.0 [facility] Comment on above: Result Comment: Crit ical Result(s) Called at: by:??[facility] Result(s) Called at: 2055 by: ROSLYN AYERS??Results read back by same. Performed By: #### L 100.0100, L500.2500, L501.2450, L500.3400, L700.6800 ####[facility] [address] [place], [address] Creatinine [Mass/Vol] 1.10 mg/dL Normal 0.70-1.20 [facility] Comment on above: Performed By: #### L 100.0100, L500.2500, L501.2450, L500.3400, L700.6800 ####[facility] [address] [place], [address] GAP 32 High 5-15 [facility] Comment on above: Performed By: #### L 100.0100, L500.2500, L501.2450, L500.3400, L700.6800 ####[facility] [address] [place], [address] GFR/1.73 sq M.predicted among non-blacks MDRD (S/P/Bld) [Vol rate/Area] 69 mL/min/{1.73_m2} Normal >60 [facility] Comment on above: Result Comment: mL/m in/1.73m2 CKD-EPI Creatinine Equation (2020) Performed By: #### L 100.0100, L500.2500, L501.2450, L500.3400, L700.6800 ####[facility] [address] [place], [address] Glucose [Mass/Vol] 507 mg/dL Invalid Interpretation Code 70-99 [facility] Comment on above: Result Comment: Crit ical Result(s) Called at: by:??Results read back bysame.Critical Result(s) Called at: 2055 by: ROSLYN AYERS??Results read back by same.Critical Result(s) Called at: by:??Results read back bysame. Performed By: #### L 100.0100, L500.2500, L501.2450, L500.3400, L700.6800 ####[facility] [address] [place], [address] Potassium [Moles/Vol] 4.7 mmol/L Normal 3.3-5.1 [facility] Comment on above: Performed By: #### L 100.0100, L500.2500, L501.2450, L500.3400, L700.6800 ####[facility] [address] [place], [address] Sodium [Moles/Vol] 130 mmol/L Low 133-145 [facility] Comment on above: Performed By: #### L 100.0100, L500.2500, L501.2450, L500.3400, L700.6800 ####[facility] [address] [place], [address] Urea nitrogen [Mass/Vol] 24 mg/dL High 4-19 [facility] Comment on above: Performed By: #### L 100.0100, L500.2500, L501.2450, L500.3400, L700.6800 ####[facility] [address] [place], [address] Bedside Glucoseon 01-22-2025 FINGERSTICK GLU 369 mg/dL High 74-106 [facility] Comment on above: Result Comment: EDGAR GEMENT OF PATIENT CARE PER NURSING PROTOCOL Performed By: #### L 501.080 ####[facility] [address] [place], [address] FINGERSTICK GLU > 500 Invalid Interpretation Code 74-106 [facility] Comment on above: Result Comment: Insu bill GivenMANAGEMENT OF PATIENT CARE PER NURSING PROTOCOL Performed By: #### L 501.080 ####[facility] [address] [place], [address] FINGERSTICK GLU 492 mg/dL Invalid Interpretation Code 74-106 [facility] Comment on above: Result Comment: Dr Ej foreman FollowedMANAGEMENT OF PATIENT CARE PER NURSING PROTOCOL Performed By: #### L 501.080 ####[facility] [address] [place], [address] Beta-Hydroxbytyrateon 2024 BETA-HYDROXYBUT 6.8 mmol/L Normal 0.0-0.3 [facility] Comment on above: Performed By: #### L 501.6901 ####[facility] [address] [place], [address] CBC W/Diff, Automatedon 05- PLT EST SLT DEC Normal ADEQ [facility] Comment on above: Performed By: #### L 100.0100, L500.2500, L501.2450, L500.3400, L700.6800 ####[facility] [address] [place], [address] SMEAR COMMENT SCANNED Normal [facility] Comment on above: Performed By: #### L 100.0100, L500.2500, L501.2450, L500.3400, L700.6800 ####[facility] [address] [place], [address] Emergency Department Summary on 01-22-2025 Emergency Department Summary Normal [facility] H AND P Exam - Hospitaliston 01-22-2025 H&P Exam - Hospitalist Normal [facility] Lipaseon 01-22-2025 Lipase [Catalytic activity/Vol] 11 U/L Low 13-75 [facility] Comment on above: Result Comment: Sulma schmitz note:LIPASE revised reference range effective 22.New Lipase methodology. Expected to produce lower valuesthan the previous assay method.NEW Reference Range: 13 - 75 U/L Performed By: #### L 100.0100, L500.2500, L501.2450, L500.3400, L700.6800 ####[facility] [address] [place], [address] Liver Profileon 01-22-2025 Albumin [Mass/Vol] 4.6 g/dL Normal 3.5-5.0 [facility] Comment on above: Performed By: #### L 100.0100, L500.2500, L501.2450, L500.3400, L700.6800 ####[facility] [address] [place], [address] ALK PHOS 109 U/L High 35-104 [facility] Comment on above: Performed By: #### L 100.0100, L500.2500, L501.2450, L500.3400, L700.6800 ####[facility] [address] [place], [address] ALT [Catalytic activity/Vol] 11 U/L Normal <=34 [facility] Comment on above: Performed By: #### L 100.0100, L500.2500, L501.2450, L500.3400, L700.6800 ####[facility] [address] [place], [address] AST [Catalytic activity/Vol] 16 U/L Normal <=31 [facility] Comment on above: Performed By: #### L 100.0100, L500.2500, L501.2450, L500.3400, L700.6800 ####[facility] [address] [place], [address] Bilirubin [Mass/Vol] 0.96 mg/dL Normal 0.00-1.30 [facility] Comment on above: Performed By: #### L 100.0100, L500.2500, L501.2450, L500.3400, L700.6800 ####[facility] [address] [place], [address] Bilirubin.direct [Mass/Vol] 0.40 mg/dL High 0.00-0.30 [facility] Comment on above: Performed By: #### L 100.0100, L500.2500, L501.2450, L500.3400, L700.6800 ####[facility] [address] [place], [address] Globulin (S) [Mass/Vol] 3.3 g/dL Normal 2.2-4.2 [facility] Comment on above: Performed By: #### L 100.0100, L500.2500, L501.2450, L500.3400, L700.6800 ####[facility] [address] [place], [address] T PROT 7.9 g/dL Normal 5.9-8.4 [facility] Comment on above: Performed By: #### L 100.0100, L500.2500, L501.2450, L500.3400, L700.6800 ####[facility] [address] [place], [address] ,Serum,hCG Quali.on 01-22-2025 HCG, SERUM QUAL Negative Normal [facility] Comment on above: Performed By: #### L 100.0100, L500.2500, L501.2450, L500.3400, L700.6800 ####[facility] [address] [place], [address] Urinalysis, Completeon 01-22 WBC 0-5 SEEN Normal 0-5 [facility] Comment on above: Order Comment: CRITI CRISTINA VALUE [facility]252058 Nguyen Lollo.RESULTS READ BACK BY SAME.CLEAN CATCH Performed By: #### L 400.0001 ####[facility] [address] [place], [address] RBC 0-5 SEEN Normal 0-5 [facility] Comment on above: Order Comment: CRITI CRISTINA VALUE CALLED TO [facility]ION TEAL01/22/252058 Nguyen Lollo.RESULTS READ BACK BY SAME.CLEAN CATCH Performed By: #### L 400.0001 ####[facility] [address] [place], [address] BACTERIA 1+ /hpf Normal None Seen [facility] Comment on above: Order Comment: CRITI CRISTINA VALUE CALLED TO [facility] TEAL01/22/252058 Nguyen Lollo.RESULTS READ BACK BY SAME.CLEAN CATCH Performed By: #### L 400.0001 ####[facility] [address] [place], [address] EPI,SQUAMOUS 0-5 SEEN Normal 5-10 [facility] Comment on above: Order Comment: CRITI CRISTINA VALUE CALLED TO ZION GUIDO01/22/252058 Nguyen Lollo.RESULTS READ BACK BY SAME.CLEAN CATCH Performed By: #### L 400.0001 ####[facility] [address] [place], [address] Mucus Ql (Urine sed) 0 SEEN Normal [facility] Comment on above: Order Comment: CRITI CRISTINA VALUE CALLED TO ZION GUIDO01/22/252058 Nguyen Lollo.RESULTS READ BACK BY SAME.CLEAN CATCH Performed By: #### L 400.0001 ####[facility] [address] [place], [address] Venous Blood Gason 5 Blood Gas Type ISABELLE Normal [facility] Comment on above: Performed By: #### L 9000.0810 ####[facility] [address] [place], [address] CO2 [Moles/Vol] 8 mmol/L Low 23-33 [facility] Comment on above: Performed By: #### L 9000.0810 ####[facility] [address] [place], [address] HCO3 (Bld) [Moles/Vol] 8 mmol/L Low 22-26 [facility] Comment on above: Performed By: #### L 9000.0810 ####[facility] [address] [place], [address] O2 Delivery Dev Not entered [facility] Comment on above: Performed By: #### L 9000.0810 ####[facility] [address] [place], [address] Read Back By Yes [facility] Comment on above: Performed By: #### L 9000.0810 ####[facility] [address] [place], [address] SITE Not entered Normal [facility] Comment on above: Performed By: #### L 9000.0810 ####[facility] [address] [place], [address] VBG BE -21 mmol/L Low -1.0-3.5 [facility] Comment on above: Performed By: #### L 9000.0810 ####[facility] [address] [place], [address] VBG pCO2 20.8 mmHg Low 41-51 [facility] Comment on above: Performed By: #### L 9000.0810 ####[facility] [address] [place], [address] VBG pH 7.17 Invalid Interpretation Code 7.32-7.42 [facility] Comment on above: Performed By: #### L 9000.0810 ####[facility] [address] [place], [address] VBG PO2 48 mmHg High 25-40 [facility] Comment on above: Performed By: #### L 9000.0810 ####[facility] [address] [place], [address] VBG SO2 74 High 50-70 [facility] Comment on above: Performed By: #### L 9000.0810 ####[facility] [address] [place], [address] Abdomen Single Viewon 2024 Abdomen Single View Normal [facility] Gastroenterology Visit Repor ton 01-08-2025 Gastroenterology Visit Report Normal [facility] CBC W/Diff, Automatedon -3 Absolute Lymph 1.70 X10 3/uL Normal 0.83-4.51 [facility] Comment on above: Performed By: #### L 501.2300, L100.0100, L500.4050 ####[facility] [address] [place], [address] Absolute Neut 7.3 X10 3/uL Normal 2.0-7.7 [facility] Comment on above: Performed By: #### L 501.2300, L100.0100, L500.4050 ####[facility] [address] [place], [address] Basophils/100 WBC (Bld) 0.5 % Normal 0-1 [facility] Comment on above: Performed By: #### L 501.2300, L100.0100, L500.4050 ####[facility] [address] [place], [address] Eosinophils/100 WBC (Bld) 0.6 % Normal 0-5 [facility] Comment on above: Performed By: #### L 501.2300, L100.0100, L500.4050 ####[facility] [address] [place], [address] Erythrocyte distribution width (RBC) [Ratio] 13.1 % Normal 11.6-14.6 [facility] Comment on above: Performed By: #### L 501.2300, L100.0100, L500.4050 ####[facility] [address] [place], [address] Hematocrit (Bld) [Volume fraction] 42.8 % Normal 37-47 [facility] Comment on above: Performed By: #### L 501.2300, L100.0100, L500.4050 ####[facility] [address] [place], [address] Hemoglobin (Bld) [Mass/Vol] 14.5 g/dL Normal 12.0-15.0 [facility] Comment on above: Performed By: #### L 501.2300, L100.0100, L500.4050 ####[facility] [address] [place], [address] IG% 0.900 Normal 0.0-0.9 [facility] Comment on above: Result Comment: IG% - Immature Granulocytes (promyelocytes, myelocytes andmetamyelocytes) > 1% indicates that a LEFT SHIFT is Present. Performed By: #### L 501.2300, L100.0100, L500.4050 ####[facility] [address] [place], [address] Lymphocytes/100 WBC (Bld) 17.6 % Low 19-41 [facility] Comment on above: Performed By: #### L 501.2300, L100.0100, L500.4050 ####[facility] [address] [place], [address] MCH (RBC) [Entitic mass] 29.5 pg Normal 27.0-32.0 [facility] Comment on above: Performed By: #### L 501.2300, L100.0100, L500.4050 ####[facility] [address] [place], [address] MCHC (RBC) [Mass/Vol] 33.9 g/dL Normal 32-36 [facility] Comment on above: Performed By: #### L 501.2300, L100.0100, L500.4050 ####[facility] [address] [place], [address] MCV (RBC) [Entitic vol] 87.2 fL Normal 81-99 [facility] Comment on above: Performed By: #### L 501.2300, L100.0100, L500.4050 ####[facility] [address] [place], [address] Monocytes/100 WBC (Bld) 5.3 % Normal 0-10 [facility] Comment on above: Performed By: #### L 501.2300, L100.0100, L500.4050 ####[facility] [address] [place], [address] Neutrophils/100 WBC (Bld) 75.1 % High 47-70 [facility] Comment on above: Performed By: #### L 501.2300, L100.0100, L500.4050 ####[facility] [address] [place], [address] Nucleated RBC (Bld) [#/Vol] 0 10*3/uL Normal 0-5 [facility] Comment on above: Performed By: #### L 501.2300, L100.0100, L500.4050 ####[facility] [address] [place], [address] Platelet mean volume (Bld) [Entitic vol] 12.4 fL High 6.2-12.0 [facility] Comment on above: Performed By: #### L 501.2300, L100.0100, L500.4050 ####[facility] [address] [place], [address] Platelets (Bld) [#/Vol] 149 10*3/uL Low 150-450 [facility] Comment on above: Performed By: #### L 501.2300, L100.0100, L500.4050 ####[facility] [address] [place], [address] RBC (Bld) [#/Vol] 4.91 10*6/uL Normal 4.2-5.4 [facility] Comment on above: Performed By: #### L 501.2300, L100.0100, L500.4050 ####[facility] [address] [place], [address] RDW SD 41.7 fl Normal 35.1-43.9 [facility] Comment on above: Performed By: #### L 501.2300, L100.0100, L500.4050 ####[facility] [address] [place], [address] WBC (Bld) [#/Vol] 9.7 10*3/uL Normal 4.4-11.0 [facility] Comment on above: Performed By: #### L 501.2300, L100.0100, L500.4050 ####[facility] [address] [place], [address] Comprehensive Metabolic Prof [facility] 12-25-2024 Albumin [Mass/Vol] 4.3 g/dL Normal 3.5-5.0 [facility] Comment on above: Performed By: #### L 501.2300, L100.0100, L500.4050 ####[facility] [address] [place], [address] Albumin/Globulin [Mass ratio] 1.6 {ratio} Normal 0.9-2.4 [facility] Comment on above: Performed By: #### L 501.2300, L100.0100, L500.4050 ####[facility] [address] [place], [address] ALK PHOS 78 U/L Normal 35-104 [facility] Comment on above: Performed By: #### L 501.2300, L100.0100, L500.4050 ####[facility] [address] [place], [address] ALT [Catalytic activity/Vol] 9 U/L Normal <=34 [facility] Comment on above: Performed By: #### L 501.2300, L100.0100, L500.4050 ####[facility] [address] [place], [address] AST [Catalytic activity/Vol] 14 U/L Normal <=31 [facility] Comment on above: Performed By: #### L 501.2300, L100.0100, L500.4050 ####[facility] [address] [place], [address] Bilirubin [Mass/Vol] 0.56 mg/dL Normal 0.00-1.30 [facility] Comment on above: Performed By: #### L 501.2300, L100.0100, L500.4050 ####[facility] [address] [place], [address] BUN/CRE 14.6 RATIO Normal 10-20 [facility] Comment on above: Performed By: #### L 501.2300, L100.0100, L500.4050 ####[facility] [address] [place], [address] Calcium [Mass/Vol] 9.3 mg/dL Normal 7.6-11.0 [facility] Comment on above: Performed By: #### L 501.2300, L100.0100, L500.4050 ####[facility] [address] [place], [address] Chloride [Moles/Vol] 100 mmol/L Normal 98-108 [facility] Comment on above: Performed By: #### L 501.2300, L100.0100, L500.4050 ####[facility] [address] [place], [address] CO2 [Moles/Vol] 19.3 mmol/L Low 21.0-32.0 [facility] Comment on above: Performed By: #### L 501.2300, L100.0100, L500.4050 ####[facility] [address] [place], [address] Creatinine [Mass/Vol] 0.75 mg/dL Normal 0.70-1.20 [facility] Comment on above: Performed By: #### L 501.2300, L100.0100, L500.4050 ####[facility] [address] [place], [address] GAP 13 Normal 5-15 [facility] Comment on above: Performed By: #### L 501.2300, L100.0100, L500.4050 ####[facility] [address] [place], [address] GFR/1.73 sq M.predicted among non-blacks MDRD (S/P/Bld) [Vol rate/Area] 110 mL/min/{1.73_m2} Normal >60 [facility] Comment on above: Result Comment: mL/m in/1.73m2 CKD-EPI Creatinine Equation (2020) Performed By: #### L 501.2300, L100.0100, L500.4050 ####[facility] [address] [place], [address] Globulin (S) [Mass/Vol] 2.7 g/dL Normal 2.2-4.2 [facility] Comment on above: Performed By: #### L 501.2300, L100.0100, L500.4050 ####[facility] [address] [place], [address] Glucose [Mass/Vol] 443 mg/dL High 70-99 [facility] Comment on above: Performed By: #### L 501.2300, L100.0100, L500.4050 ####[facility] [address] [place], [address] Potassium [Moles/Vol] 4.5 mmol/L Normal 3.3-5.1 [facility] Comment on above: Performed By: #### L 501.2300, L100.0100, L500.4050 ####[facility] [address] [place], [address] Sodium [Moles/Vol] 133 mmol/L Normal 133-145 [facility] Comment on above: Performed By: #### L 501.2300, L100.0100, L500.4050 ####[facility] [address] [place], [address] T PROT 7.0 g/dL Normal 5.9-8.4 [facility] Comment on above: Performed By: #### L 501.2300, L100.0100, L500.4050 ####[facility] [address] [place], [address] Urea nitrogen [Mass/Vol] 11 mg/dL Normal 4-19 [facility] Comment on above: Performed By: #### L 501.2300, L100.0100, L500.4050 ####[facility] [address] [place], [address] Phosphoruson 12-25-2024 Phosphate [Mass/Vol] 2.9 mg/dL Normal 2.7-4.5 [facility] Comment on above: Performed By: #### L 501.2300, L100.0100, L500.4050 ####[facility] [address] [place], [address] Basic Metabolic Profile (BMP )on 12-16-2024 BUN/CRE 10.1 RATIO Normal 10-20 [facility] Comment on above: Performed By: #### L 500.2500, L100.0100 ####[facility] [address] [place], [address] Calcium [Mass/Vol] 8.4 mg/dL Normal 7.6-11.0 [facility] Comment on above: Performed By: #### L 500.2500, L100.0100 ####[facility] [address] [place], [address] Chloride [Moles/Vol] 107 mmol/L Normal 98-108 [facility] Comment on above: Performed By: #### L 500.2500, L100.0100 ####[facility] [address] [place], [address] CO2 [Moles/Vol] 19.2 mmol/L Low 21.0-32.0 [facility] Comment on above: Performed By: #### L 500.2500, L100.0100 ####[facility] [address] [place], [address] Creatinine [Mass/Vol] 0.68 mg/dL Low 0.70-1.20 [facility] Comment on above: Performed By: #### L 500.2500, L100.0100 ####[facility] [address] [place], [address] ECRCL 126.42 ml/min Normal 50-250 [facility] Comment on above: Performed By: #### L 500.2500, L100.0100 ####[facility] [address] [place], [address] GAP 11 Normal 5-15 [facility] Comment on above: Performed By: #### L 500.2500, L100.0100 ####[facility] [address] [place], [address] GFR/1.73 sq M.predicted among non-blacks MDRD (S/P/Bld) [Vol rate/Area] 120 mL/min/{1.73_m2} Normal >60 [facility] Comment on above: Result Comment: mL/m in/1.73m2 CKD-EPI Creatinine Equation (2020) Performed By: #### L 500.2500, L100.0100 ####[facility] [address] [place], [address] Glucose [Mass/Vol] 203 mg/dL High 70-99 [facility] Comment on above: Performed By: #### L 500.2500, L100.0100 ####[facility] [address] [place], [address] Potassium [Moles/Vol] 4.4 mmol/L Normal 3.3-5.1 [facility] Comment on above: Result Comment: Hemo lysis present, Results??could be affected.?? Performed By: #### L 500.2500, L100.0100 ####[facility] [address] [place], [address] Sodium [Moles/Vol] 137 mmol/L Normal 133-145 [facility] Comment on above: Performed By: #### L 500.2500, L100.0100 ####[facility] [address] [place], [address] Urea nitrogen [Mass/Vol] 7 mg/dL Normal 4-19 [facility] Comment on above: Performed By: #### L 500.2500, L100.0100 ####[facility] [address] [place], [address] Bedside Glucoseon 12-16-2024 FINGERSTICK GLU 214 mg/dL High 74-106 [facility] Comment on above: Result Comment: EDGAR GEMENT OF PATIENT CARE PER NURSING PROTOCOL Performed By: #### L 501.080 ####[facility] [address] [place], [address] FINGERSTICK GLU 227 mg/dL High 74-106 [facility] Comment on above: Result Comment: EDGAR GEMENT OF PATIENT CARE PER NURSING PROTOCOL Performed By: #### L 501.080 ####[facility] [address] [place], [address] FINGERSTICK GLU 180 mg/dL High 74-106 [facility] Comment on above: Result Comment: EDGAR GEMENT OF PATIENT CARE PER NURSING PROTOCOL Performed By: #### L 501.080 ####[facility] [address] [place], [address] CBC W/Diff, Automatedon 04- Absolute Lymph 2.03 X10 3/uL Normal 0.83-4.51 [facility] Comment on above: Performed By: #### L 500.2500, L100.0100 ####[facility] [address] [place], [address] Absolute Neut 14.1 X10 3/uL High 2.0-7.7 [facility] Comment on above: Performed By: #### L 500.2500, L100.0100 ####[facility] [address] [place], [address] Basophils/100 WBC (Bld) 0.3 % Normal 0-1 [facility] Comment on above: Performed By: #### L 500.2500, L100.0100 ####[facility] [address] [place], [address] Eosinophils/100 WBC (Bld) 0.1 % Normal 0-5 [facility] Comment on above: Performed By: #### L 500.2500, L100.0100 ####[facility] [address] [place], [address] Erythrocyte distribution width (RBC) [Ratio] 13.3 % Normal 11.6-14.6 [facility] Comment on above: Performed By: #### L 500.2500, L100.0100 ####[facility] [address] [place], [address] Hematocrit (Bld) [Volume fraction] 36.8 % Low 37-47 [facility] Comment on above: Performed By: #### L 500.2500, L100.0100 ####[facility] [address] [place], [address] Hemoglobin (Bld) [Mass/Vol] 12.4 g/dL Normal 12.0-15.0 [facility] Comment on above: Performed By: #### L 500.2500, L100.0100 ####[facility] [address] [place], [address] IG% 0.800 Normal 0.0-0.9 [facility] Comment on above: Result Comment: IG% - Immature Granulocytes (promyelocytes, myelocytes andmetamyelocytes) > 1% indicates that a LEFT SHIFT is Present. Performed By: #### L 500.2500, L100.0100 ####[facility] [address] [place], [address] Lymphocytes/100 WBC (Bld) 11.8 % Low 19-41 [facility] Comment on above: Performed By: #### L 500.2500, L100.0100 ####[facility] [address] [place], [address] MCH (RBC) [Entitic mass] 29.5 pg Normal 27.0-32.0 [facility] Comment on above: Performed By: #### L 500.2500, L100.0100 ####[facility] [address] [place], [address] MCHC (RBC) [Mass/Vol] 33.7 g/dL Normal 32-36 [facility] Comment on above: Performed By: #### L 500.2500, L100.0100 ####[facility] [address] [place], [address] MCV (RBC) [Entitic vol] 87.4 fL Normal 81-99 [facility] Comment on above: Performed By: #### L 500.2500, L100.0100 ####[facility] [address] [place], [address] Monocytes/100 WBC (Bld) 5.0 % Normal 0-10 [facility] Comment on above: Performed By: #### L 500.2500, L100.0100 ####[facility] [address] [place], [address] Neutrophils/100 WBC (Bld) 82.0 % High 47-70 [facility] Comment on above: Performed By: #### L 500.2500, L100.0100 ####[facility] [address] [place], [address] Nucleated RBC (Bld) [#/Vol] 0 10*3/uL Normal 0-5 [facility] Comment on above: Performed By: #### L 500.2500, L100.0100 ####[facility] [address] [place], [address] Platelet mean volume (Bld) [Entitic vol] 12.4 fL High 6.2-12.0 [facility] Comment on above: Performed By: #### L 500.2500, L100.0100 ####[facility] [address] [place], [address] Platelets (Bld) [#/Vol] 165 10*3/uL Normal 150-450 [facility] Comment on above: Performed By: #### L 500.2500, L100.0100 ####[facility] [address] [place], [address] RBC (Bld) [#/Vol] 4.21 10*6/uL Normal 4.2-5.4 [facility] Comment on above: Performed By: #### L 500.2500, L100.0100 ####[facility] [address] [place], [address] RDW SD 42.4 fl Normal 35.1-43.9 [facility] Comment on above: Performed By: #### L 500.2500, L100.0100 ####[facility] [address] [place], [address] WBC (Bld) [#/Vol] 17.1 10*3/uL High 4.4-11.0 [facility] Comment on above: Performed By: #### L 500.2500, L100.0100 ####[facility] [address] [place], [address] Discharge Instructionon 11-27 Discharge Instruction Normal [facility] Basic Metabolic Profile (BMP )on 12-15-2024 BUN/CRE 19.3 RATIO Normal 10-20 [facility] Comment on above: Performed By: #### L 500.2500, L100.0500 ####[facility] [address] [place], [address] Calcium [Mass/Vol] 7.9 mg/dL Normal 7.6-11.0 [facility] Comment on above: Performed By: #### L 500.2500, L100.0500 ####[facility] [address] [place], [address] Chloride [Moles/Vol] 106 mmol/L Normal 98-108 [facility] Comment on above: Performed By: #### L 500.2500, L100.0500 ####[facility] [address] [place], [address] CO2 [Moles/Vol] 14.3 mmol/L Low 21.0-32.0 [facility] Comment on above: Performed By: #### L 500.2500, L100.0500 ####[facility] [address] [place], [address] Creatinine [Mass/Vol] 0.56 mg/dL Low 0.70-1.20 [facility] Comment on above: Performed By: #### L 500.2500, L100.0500 ####[facility] [address] [place], [address] ECRCL 153.51 ml/min Normal 50-250 [facility] Comment on above: Performed By: #### L 500.2500, L100.0500 ####[facility] [address] [place], [address] GAP 17 High 5-15 [facility] Comment on above: Performed By: #### L 500.2500, L100.0500 ####[facility] [address] [place], [address] GFR/1.73 sq M.predicted among non-blacks MDRD (S/P/Bld) [Vol rate/Area] 126 mL/min/{1.73_m2} Normal >60 [facility] Comment on above: Result Comment: mL/m in/1.73m2 CKD-EPI Creatinine Equation (2020) Performed By: #### L 500.2500, L100.0500 ####[facility] [address] [place], [address] Glucose [Mass/Vol] 40 mg/dL Invalid Interpretation Code 70-99 [facility] Comment on above: Result Comment: Crit ical Result(s) Called at: 0709 by:??ROSLYN MACK Results read back by same. Performed By: #### L 500.2500, L100.0500 ####[facility] [address] [place], [address] Potassium [Moles/Vol] 3.1 mmol/L Low 3.3-5.1 [facility] Comment on above: Performed By: #### L 500.2500, L100.0500 ####[facility] [address] [place], [address] Sodium [Moles/Vol] 138 mmol/L Normal 133-145 [facility] Comment on above: Performed By: #### L 500.2500, L100.0500 ####[facility] [address] [place], [address] Urea nitrogen [Mass/Vol] 11 mg/dL Normal 4-19 [facility] Comment on above: Performed By: #### L 500.2500, L100.0500 ####[facility] [address] [place], [address] Bedside Glucoseon 12-15-2024 FINGERSTICK GLU 260 mg/dL High -106 [facility] Comment on above: Result Comment: EDGAR GEMENT OF PATIENT CARE PER NURSING PROTOCOL Performed By: #### L 501.080 ####[facility] [address] [place], [address] FINGERSTICK GLU 307 mg/dL High [facility]106 [facility] Comment on above: Result Comment: EDGAR GEMENT OF PATIENT CARE PER NURSING PROTOCOL Performed By: #### L 501.080 ####[facility] [address] [place], [address] FINGERSTICK GLU 204 mg/dL High [address] [place] [address] Comment on above: Result Comment: EDGAR GEMENT OF PATIENT CARE PER NURSING PROTOCOL Performed By: #### L 501.080 ####[facility] [address] [place], [address] FINGERSTICK GLU 77 mg/dL Normal -[address] [place] [address] Comment on above: Result Comment: EDGAR GEMENT OF PATIENT CARE PER NURSING PROTOCOL Performed By: #### L 501.080 ####[facility] [address] [place], [address] FINGERSTICK GLU 34 mg/dL Invalid Interpretation Code -[address] [place] [address] Comment on above: Result Comment: EDGAR GEMENT OF PATIENT CARE PER NURSING PROTOCOL Performed By: #### L 501.080 ####[facility] [address] [place], [address] FINGERSTICK GLU 109 mg/dL High [address] [place] [address] Comment on above: Result Comment: EDGAR GEMENT OF PATIENT CARE PER NURSING PROTOCOL Performed By: #### L 501.080 ####[facility] [address] [place], [address] CBC-Complete Blood Cnt No Di ffon 12-15-2024 Erythrocyte distribution width (RBC) [Ratio] 13.1 % Normal 11.6-14.6 [facility] Comment on above: Performed By: #### L 500.2500, L100.0500 ####[facility] [address] [place], [address] Hematocrit (Bld) [Volume fraction] 36.0 % Low 37-47 [facility] Comment on above: Performed By: #### L 500.2500, L100.0500 ####[facility] [address] [place], [address] Hemoglobin (Bld) [Mass/Vol] 12.2 g/dL Normal 12.0-15.0 [facility] Comment on above: Performed By: #### L 500.2500, L100.0500 ####[facility] [address] [place], [address] MCH (RBC) [Entitic mass] 30.1 pg Normal 27.0-32.0 [facility] Comment on above: Performed By: #### L 500.2500, L100.0500 ####[facility] [address] [place], [address] MCHC (RBC) [Mass/Vol] 33.9 g/dL Normal 32-36 [facility] Comment on above: Performed By: #### L 500.2500, L100.0500 ####[facility] [address] [place], [address] MCV (RBC) [Entitic vol] 88.9 fL Normal 81-99 [facility] Comment on above: Performed By: #### L 500.2500, L100.0500 ####[facility] [address] [place], [address] Platelet mean volume (Bld) [Entitic vol] 12.9 fL High 6.2-12.0 [facility] Comment on above: Performed By: #### L 500.2500, L100.0500 ####[facility] [address] [place], [id number] Platelets (Bld) [#/Vol] 145 10*3/uL Low 150-450 [facility] Comment on above: Performed By: #### L 500.2500, L100.0500 ####[facility] [address] [place], [address] RBC (Bld) [#/Vol] 4.05 10*6/uL Low 4.2-5.4 [facility] Comment on above: Performed By: #### L 500.2500, L100.0500 ####[facility] [address] [place], [address] RDW SD 42.8 fl Normal 35.1-43.9 [facility] Comment on above: Performed By: #### L 500.2500, L100.0500 ####[facility] [address] [place], [address] WBC (Bld) [#/Vol] 16.4 10*3/uL High 4.4-11.0 [facility] Comment on above: Performed By: #### L 500.2500, L100.0500 ####[facility] [address] [place], [address] Basic Metabolic Profile (BMP )on 12-14-2024 BUN/CRE 17.1 RATIO Normal 10-20 [facility] Comment on above: Performed By: #### L 500.2500 ####[facility] [address] [place], [address] Calcium [Mass/Vol] 7.7 mg/dL Normal 7.6-11.0 [facility] Comment on above: Performed By: #### L 500.2500 ####[facility] [address] [place], [address] Chloride [Moles/Vol] 108 mmol/L Normal 98-108 [facility] Comment on above: Performed By: #### L 500.2500 ####[facility] [address] [place], [address] CO2 [Moles/Vol] 15.3 mmol/L Low 21.0-32.0 [facility] Comment on above: Performed By: #### L 500.2500 ####[facility] [address] [place], [address] Creatinine [Mass/Vol] 0.67 mg/dL Low 0.70-1.20 [facility] Comment on above: Performed By: #### L 500.2500 ####[facility] [address] [place], [address] ECRCL 138.78 ml/min Normal 50-250 [facility] Comment on above: Performed By: #### L 500.2500 ####[facility] [address] [place], [address] GAP 15 Normal 5-15 [facility] Comment on above: Performed By: #### L 500.2500 ####[facility] [address] [place], [address] GFR/1.73 sq M.predicted among non-blacks MDRD (S/P/Bld) [Vol rate/Area] 121 mL/min/{1.73_m2} Normal >60 [facility] Comment on above: Result Comment: mL/m in/1.73m2 CKD-EPI Creatinine Equation (2020) Performed By: #### L 500.2500 ####[facility] [address] [place], [address] Glucose [Mass/Vol] 180 mg/dL High 70-99 [facility] Comment on above: Performed By: #### L 500.2500 ####[facility] [address] [place], [address] Potassium [Moles/Vol] 3.3 mmol/L Normal 3.3-5.1 [facility] Comment on above: Performed By: #### L 500.2500 ####[facility] [address] [place], [address] Sodium [Moles/Vol] 138 mmol/L Normal 133-145 [facility] Comment on above: Performed By: #### L 500.2500 ####[facility] [address] [place], [address] Urea nitrogen [Mass/Vol] 11 mg/dL Normal 4-19 [facility] Comment on above: Performed By: #### L 500.2500 ####[facility] [address] [place], [address] Bedside Glucoseon 12-14-2024 FINGERSTICK GLU 186 mg/dL High 74-106 [facility] Comment on above: Result Comment: EDGAR GEMENT OF PATIENT CARE PER NURSING PROTOCOL Performed By: #### L 501.080 ####[facility] [address] [place], [address] FINGERSTICK GLU 291 mg/dL High 74-106 [facility] Comment on above: Result Comment: EDGAR GEMENT OF PATIENT CARE PER NURSING PROTOCOL Performed By: #### L 501.080 ####[facility] [address] [place], [address] FINGERSTICK GLU 352 mg/dL High 74-106 [facility] Comment on above: Result Comment: EDGAR GEMENT OF PATIENT CARE PER NURSING PROTOCOL Performed By: #### L 501.080 ####[facility] [address] [place], [address] Beta-Hydroxbytyrateon 2024 BETA-HYDROXYBUT 1.9 mmol/L Normal 0.0-0.3 [facility] Comment on above: Performed By: #### L 700.6800, L501.2450, L500.4050, L501.6901 ####[facility] [address] [place], [address] CBC W/Diff, Automatedon 11-26 Absolute Lymph 2.40 X10 3/uL Normal 0.83-4.51 [facility] Comment on above: Performed By: #### L 100.0100 ####[facility] [address] [place], [address] Absolute Neut 12.5 X10 3/uL High 2.0-7.7 [facility] Comment on above: Performed By: #### L 100.0100 ####[facility] [address] [place], [address] Basophils/100 WBC (Bld) 0.4 % Normal 0-1 [facility] Comment on above: Performed By: #### L 100.0100 ####[facility] [address] [place], [address] Eosinophils/100 WBC (Bld) 0.1 % Normal 0-5 [facility] Comment on above: Performed By: #### L 100.0100 ####[facility] [address] [place], [address] Erythrocyte distribution width (RBC) [Ratio] 12.9 % Normal 11.6-14.6 [facility] Comment on above: Performed By: #### L 100.0100 ####[facility] [address] [place], [address] Hematocrit (Bld) [Volume fraction] 39.9 % Normal 37-47 [facility] Comment on above: Performed By: #### L 100.0100 ####[facility] [address] [place], [address] Hemoglobin (Bld) [Mass/Vol] 13.7 g/dL Normal 12.0-15.0 [facility] Comment on above: Performed By: #### L 100.0100 ####[facility] [address] [place], [address] IG% 0.800 Normal 0.0-0.9 [facility] Comment on above: Result Comment: IG% - Immature Granulocytes (promyelocytes, myelocytes andmetamyelocytes) > 1% indicates that a LEFT SHIFT is Present. Performed By: #### L 100.0100 ####[facility] [address] [place], [address] Lymphocytes/100 WBC (Bld) 15.1 % Low 19-41 [facility] Comment on above: Performed By: #### L 100.0100 ####[facility] [address] [place], [address] MCH (RBC) [Entitic mass] 29.7 pg Normal 27.0-32.0 [facility] Comment on above: Performed By: #### L 100.0100 ####[facility] [address] [place], [address] MCHC (RBC) [Mass/Vol] 34.3 g/dL Normal 32-36 [facility] Comment on above: Performed By: #### L 100.0100 ####[facility] [address] [place], [address] MCV (RBC) [Entitic vol] 86.4 fL Normal 81-99 [facility] Comment on above: Performed By: #### L 100.0100 ####[facility] [address] [place], [address] Monocytes/100 WBC (Bld) 4.9 % Normal 0-10 [facility] Comment on above: Performed By: #### L 100.0100 ####[facility] [address] [place], [address] Neutrophils/100 WBC (Bld) 78.7 % High 47-70 [facility] Comment on above: Performed By: #### L 100.0100 ####[facility] [address] [place], [address] Nucleated RBC (Bld) [#/Vol] 0 10*3/uL Normal 0-5 [facility] Comment on above: Performed By: #### L 100.0100 ####[facility] [address] [place], [address] Platelet mean volume (Bld) [Entitic vol] 12.6 fL High 6.2-12.0 [facility] Comment on above: Performed By: #### L 100.0100 ####[facility] [address] [place], [address] Platelets (Bld) [#/Vol] 159 10*3/uL Normal 150-450 [facility] Comment on above: Performed By: #### L 100.0100 ####[facility] [address] [place], [address] RBC (Bld) [#/Vol] 4.62 10*6/uL Normal 4.2-5.4 [facility] Comment on above: Performed By: #### L 100.0100 ####[facility] [address] [place], [address] RDW SD 40.1 fl Normal 35.1-43.9 [facility] Comment on above: Performed By: #### L 100.0100 ####[facility] [address] [place], [address] WBC (Bld) [#/Vol] 15.9 10*3/uL High 4.4-11.0 [facility] Comment on above: Performed By: #### L 100.0100 ####[facility] [address] [place], [address] Comprehensive Metabolic Prof ilon 12-14-2024 Albumin [Mass/Vol] 4.2 g/dL Normal 3.5-5.0 [facility] Comment on above: Performed By: #### L 700.6800, L501.2450, L500.4050, L501.6901 ####[facility] [address] [place], [address] Albumin/Globulin [Mass ratio] 1.8 {ratio} Normal 0.9-2.4 [facility] Comment on above: Performed By: #### L 700.6800, L501.2450, L500.4050, L501.6901 ####[facility] [address] [place], [address] ALK PHOS 76 U/L Normal 35-104 [facility] Comment on above: Performed By: #### L 700.6800, L501.2450, L500.4050, L501.6901 ####[facility] [address] [place], [address] ALT [Catalytic activity/Vol] 11 U/L Normal <=34 [facility] Comment on above: Performed By: #### L 700.6800, L501.2450, L500.4050, L501.6901 ####[facility] [address] [place], [address] AST [Catalytic activity/Vol] 16 U/L Normal <=31 [facility] Comment on above: Performed By: #### L 700.6800, L501.2450, L500.4050, L501.6901 ####[facility] [address] [place], [address] Bilirubin [Mass/Vol] 0.92 mg/dL Normal 0.00-1.30 [facility] Comment on above: Performed By: #### L 700.6800, L501.2450, L500.4050, L501.6901 ####[facility] [address] [place], [address] BUN/CRE 18.2 RATIO Normal 10-20 [facility] Comment on above: Performed By: #### L 700.6800, L501.2450, L500.4050, L501.6901 ####[facility] [address] [place], [address] Calcium [Mass/Vol] 8.2 mg/dL Normal 7.6-11.0 [facility] Comment on above: Performed By: #### L 700.6800, L501.2450, L500.4050, L501.6901 ####[facility] [address] [place], [address] Chloride [Moles/Vol] 104 mmol/L Normal 98-108 [facility] Comment on above: Performed By: #### L 700.6800, L501.2450, L500.4050, L501.6901 ####[facility] [address] [place], [address] CO2 [Moles/Vol] 15.1 mmol/L Low 21.0-32.0 [facility] Comment on above: Performed By: #### L 700.6800, L501.2450, L500.4050, L501.6901 ####[facility] [address] [place], [address] Creatinine [Mass/Vol] 0.74 mg/dL Normal 0.70-1.20 [facility] Comment on above: Performed By: #### L 700.6800, L501.2450, L500.4050, L501.6901 ####[facility] [address] [place], [address] ECRCL 125.65 ml/min Normal 50-250 [facility] Comment on above: Performed By: #### L 700.6800, L501.2450, L500.4050, L501.6901 ####[facility] [address] [place], [address] GAP 17 High 5-15 [facility] Comment on above: Performed By: #### L 700.6800, L501.2450, L500.4050, L501.6901 ####[facility] [address] [place], [address] GFR/1.73 sq M.predicted among non-blacks MDRD (S/P/Bld) [Vol rate/Area] 112 mL/min/{1.73_m2} Normal >60 [facility] Comment on above: Result Comment: mL/m in/1.73m2 CKD-EPI Creatinine Equation (2020) Performed By: #### L 700.6800, L501.2450, L500.4050, L501.6901 ####[facility] [address] [place], [address] Globulin (S) [Mass/Vol] 2.4 g/dL Normal 2.2-4.2 [facility] Comment on above: Performed By: #### L 700.6800, L501.2450, L500.4050, L501.6901 ####[facility] [address] [place], [address] Glucose [Mass/Vol] 329 mg/dL High 70-99 [facility] Comment on above: Performed By: #### L 700.6800, L501.2450, L500.4050, L501.6901 ####[facility] [address] [place], [address] Potassium [Moles/Vol] 3.6 mmol/L Normal 3.3-5.1 [facility] Comment on above: Performed By: #### L 700.6800, L501.2450, L500.4050, L501.6901 ####[facility] [address] [place], [address] Sodium [Moles/Vol] 136 mmol/L Normal 133-145 [facility] Comment on above: Performed By: #### L 700.6800, L501.2450, L500.4050, L501.6901 ####[facility] [address] [place], [address] T PROT 6.5 g/dL Normal 5.9-8.4 [facility] Comment on above: Performed By: #### L 700.6800, L501.2450, L500.4050, L501.6901 ####[facility] [address] [place], [address] Urea nitrogen [Mass/Vol] 13 mg/dL Normal - [facility] Comment on above: Performed By: #### L 700.6800, L501.2450, L500.4050, L501.6901 ####[facility] [address] [place], [address] Emergency Department Summary on 12-14-2024 Emergency Department Summary Normal [facility] H AND P Exam - [facility] 12-14-2024 H&P Exam - Hospitalist Normal [facility] Lipaseon 12-14-2024 Lipase [Catalytic activity/Vol] 13 U/L Normal 13-75 [facility] Comment on above: Result Comment: Pleselene schmitz note:LIPASE revised reference range effective 22.New Lipase methodology. Expected to produce lower valuesthan the previous assay method.NEW Reference Range: 13 - 75 U/L Performed By: #### L 700.6800, L501.2450, L500.4050, L501.6901 ####[facility] [address] [place], [address] Magnesiumon 12-14-2024 Magnesium [Mass/Vol] 1.5 mg/dL Normal 1.5-2.2 [facility] Comment on above: Performed By: #### L 501.5200, L501.2300 ####[facility] [address] [place], [address] Phosphoruson 12-14-2024 Phosphate [Mass/Vol] 1.4 mg/dL Invalid Interpretation Code 2.7-4.5 [facility] Comment on above: Performed By: #### L 501.5200, L501.2300 ####[facility] [address] [place], [address] ,Serum,hCG Quali.on 12-14-2024 HCG, SERUM QUAL Negative Normal [facility] Comment on above: Performed By: #### L 700.6800, L501.2450, L500.4050, L501.6901 ####[facility] [address] [place], [address] Urinalysis, Completeon 12-14 EPI,SQUAMOUS 0-5 SEEN Normal 5-10 [facility] Comment on above: Order Comment: CLEAN CATCH Performed By: #### L 400.0001 ####[facility] [address] [place], [address] BACTERIA 0 SEEN Normal None Seen [facility] Comment on above: Order Comment: CLEAN CATCH Performed By: #### L 400.0001 ####[facility] [address] [place], [address] Mucus Ql (Urine sed) 0 SEEN Normal [facility] Comment on above: Order Comment: CLEAN CATCH Performed By: #### L 400.0001 ####[facility] [address] [place], [address] RBC 0 SEEN Normal 0-5 [facility] Comment on above: Order Comment: CLEAN CATCH Performed By: #### L 400.0001 ####[facility] [address] [place], [address] WBC 0 SEEN Normal 0-5 [facility] Comment on above: Order Comment: CLEAN CATCH Performed By: #### L 400.0001 ####[facility] [address] [place], [address] Venous Blood Gason 5 Blood Gas Type ISABELLE Normal [facility] Comment on above: Performed By: #### L 9000.0810 ####[facility] [address] [place], [address] CO2 [Moles/Vol] 16 mmol/L Low 23-33 [facility] Comment on above: Performed By: #### L 9000.0810 ####[facility] [address] [place], [address] HCO3 (Bld) [Moles/Vol] 15 mmol/L Low 22-26 [facility] Comment on above: Performed By: #### L 9000.0810 ####[facility] [address] [place], [address] O2 Delivery Dev Room Air [facility] Comment on above: Performed By: #### L 9000.0810 ####[facility] [address] [place], [address] SITE Not entered [facility] Comment on above: Performed By: #### L 9000.0810 ####[facility] [address] [place], [address] VBG BE -9 mmol/L Low -1.0-3.5 [facility] Comment on above: Performed By: #### L 9000.0810 ####[facility] [address] [place], [address] VBG pCO2 21.7 mmHg Low 41-51 [facility] Comment on above: Performed By: #### L 9000.0810 ####[facility] [address] [place], [address] VBG pH 7.45 High 7.32-7.42 [facility] Comment on above: Performed By: #### L 9000.0810 ####[facility] [address] [place], [address] VBG PO2 43 mmHg High 25-40 [facility] Comment on above: Performed By: #### L 9000.0810 ####[facility] [address] [place], [address] VBG SO2 83 High 50-70 [facility] Comment on above: Performed By: #### L 9000.0810 ####[facility] [address] [place], [address] CBC W/Diff, Automatedon PLT EST ADEQUATE Normal ADEQ [facility] Comment on above: Performed By: #### L 506.1001, L503.6030, L509.6001, L500.4050, L501.9985, L100.0100, L501.9520 ####[facility] [address] [place], [address] Comprehensive Metabolic Prof ilon 11-28-2024 Albumin [Mass/Vol] 4.1 g/dL Normal 3.5-5.0 [facility] Comment on above: Performed By: #### L 506.1001, L503.6030, L509.6001, L500.4050, L501.9985, L100.0100, L501.9520 ####[facility] [address] [place], [address] Albumin/Globulin [Mass ratio] 1.8 {ratio} Normal 0.9-2.4 [facility] Comment on above: Performed By: #### L 506.1001, L503.6030, L509.6001, L500.4050, L501.9985, L100.0100, L501.9520 ####[facility] [address] [place], [address] ALK PHOS 68 U/L Normal 35-104 [facility] Comment on above: Performed By: #### L 506.1001, L503.6030, L509.6001, L500.4050, L501.9985, L100.0100, L501.9520 ####[facility] [address] [place], [address] ALT [Catalytic activity/Vol] 6 U/L Normal <=34 [facility] Comment on above: Performed By: #### L 506.1001, L503.6030, L509.6001, L500.4050, L501.9985, L100.0100, L501.9520 ####[facility] [address] [place], [address] AST [Catalytic activity/Vol] 16 U/L Normal <=31 [facility] Comment on above: Performed By: #### L 506.1001, L503.6030, L509.6001, L500.4050, L501.9985, L100.0100, L501.9520 ####[facility] [address] [place], [address] Bilirubin [Mass/Vol] 0.29 mg/dL Normal 0.00-1.30 [facility] Comment on above: Performed By: #### L 506.1001, L503.6030, L509.6001, L500.4050, L501.9985, L100.0100, L501.9520 ####[facility] [address] [place], [address] BUN/CRE 19.9 RATIO Normal 10-20 [facility] Comment on above: Performed By: #### L 506.1001, L503.6030, L509.6001, L500.4050, L501.9985, L100.0100, L501.9520 ####[facility] [address] [place], [address] Calcium [Mass/Vol] 9.1 mg/dL Normal 7.6-11.0 [facility] Comment on above: Performed By: #### L 506.1001, L503.6030, L509.6001, L500.4050, L501.9985, L100.0100, L501.9520 ####[facility] [address] [place], [address] Chloride [Moles/Vol] 107 mmol/L Normal 98-108 [facility] Comment on above: Performed By: #### L 506.1001, L503.6030, L509.6001, L500.4050, L501.9985, L100.0100, L501.9520 ####[facility] [address] [place], [address] CO2 [Moles/Vol] 20.4 mmol/L Low 21.0-32.0 [facility] Comment on above: Performed By: #### L 506.1001, L503.6030, L509.6001, L500.4050, L501.9985, L100.0100, L501.9520 ####[facility] [address] [place], [address] Creatinine [Mass/Vol] 0.59 mg/dL Low 0.70-1.20 [facility] Comment on above: Performed By: #### L 506.1001, L503.6030, L509.6001, L500.4050, L501.9985, L100.0100, L501.9520 ####[facility] [address] [place], [address] GAP 11 Normal 5-15 [facility] Comment on above: Performed By: #### L 506.1001, L503.6030, L509.6001, L500.4050, L501.9985, L100.0100, L501.9520 ####[facility] [address] [place], [address] GFR/1.73 sq M.predicted among non-blacks MDRD (S/P/Bld) [Vol rate/Area] 124 mL/min/{1.73_m2} Normal >60 [facility] Comment on above: Result Comment: mL/m in/1.73m2 CKD-EPI Creatinine Equation (2020) Performed By: #### L 506.1001, L503.6030, L509.6001, L500.4050, L501.9985, L100.0100, L501.9520 ####[facility] [address] [place], [address] Globulin (S) [Mass/Vol] 2.3 g/dL Normal 2.2-4.2 [facility] Comment on above: Performed By: #### L 506.1001, L503.6030, L509.6001, L500.4050, L501.9985, L100.0100, L501.9520 ####[facility] [address] [place], [address] Glucose [Mass/Vol] 222 mg/dL High 70-99 [facility] Comment on above: Performed By: #### L 506.1001, L503.6030, L509.6001, L500.4050, L501.9985, L100.0100, L501.9520 ####[facility] [address] [place], [address] Potassium [Moles/Vol] 4.2 mmol/L Normal 3.3-5.1 [facility] Comment on above: Performed By: #### L 506.1001, L503.6030, L509.6001, L500.4050, L501.9985, L100.0100, L501.9520 ####[facility] [address] [place], [address] Sodium [Moles/Vol] 138 mmol/L Normal 133-145 [facility] Comment on above: Performed By: #### L 506.1001, L503.6030, L509.6001, L500.4050, L501.9985, L100.0100, L501.9520 ####[facility] [address] [place], [address] T PROT 6.4 g/dL Normal 5.9-8.4 [facility] Comment on above: Performed By: #### L 506.1001, L503.6030, L509.6001, L500.4050, L501.9985, L100.0100, L501.9520 ####[facility] [address] [place], [address] Urea nitrogen [Mass/Vol] 12 mg/dL Normal 4-19 [facility] Comment on above: Performed By: #### L 506.1001, L503.6030, L509.6001, L500.4050, L501.9985, L100.0100, L501.9520 ####[facility] [address] [place], [address] Hemoglobin A1con 11-28-2024 HbA1c (Bld) [Mass fraction] 10.1 % Normal <=5.6 [facility] Comment on above: Performed By: #### L 506.1001, L503.6030, L509.6001, L500.4050, L501.9985, L100.0100, L501.9520 ####[facility] [address] [place], [address] Iron+Iron Binding Capacityon 11-28-2024 Iron [Mass/Vol] 71 ug/dL Normal 50-170 [facility] Comment on above: Performed By: #### L 506.1001, L503.6030, L509.6001, L500.4050, L501.9985, L100.0100, L501.9520 ####[facility] [address] [place], [address] IRON SATURATION 28.0 Normal 13-59 [facility] Comment on above: Performed By: #### L 506.1001, L503.6030, L509.6001, L500.4050, L501.9985, L100.0100, L501.9520 ####[facility] [address] [place], [address] TIBC 248 ug/dL Low 250-450 [facility] Comment on above: Performed By: #### L 506.1001, L503.6030, L509.6001, L500.4050, L501.9985, L100.0100, L501.9520 ####[facility] [address] [place], [address] UIBC 177 ug/dL Low 228-428 [facility] Comment on above: Performed By: #### L 506.1001, L503.6030, L509.6001, L500.4050, L501.9985, L100.0100, L501.9520 ####[facility] [address] [place], [address] L509.6001on 11-28-2024 CORTISOL 5.66 ug/dL Low 6.02-18.40 [facility] Comment on above: Performed By: #### L 506.1001, L503.6030, L509.6001, L500.4050, L501.9985, L100.0100, L501.9520 ####[facility] [address] [place], [address] Thyroid Stim Hormone (TSH)on 11-28-2024 TSH 0.451 uIU/mL Normal 0.300-4.200 [facility] Comment on above: Performed By: #### L 506.1001, L503.6030, L509.6001, L500.4050, L501.9985, L100.0100, L501.9520 ####[facility] [address] [place], [address] Vitamin D,25 Hydroxyon 11-28 Vitamin D 25-OH 15.7 ng/mL Low 30-100 [facility] Comment on above: Result Comment: Shira min D StatusDeficiency: <20 ng/mL (50nmol/L)Insufficiency: 20-30 ng/mL (50-75 nmol/L)Sufficiency: 30-100 ng/mL (75-250 nmol/L)Toxicity: >100 ng/mL (>250 nmol/L) Performed By: #### L 506.1001, L503.6030, L509.6001, L500.4050, L501.9985, L100.0100, L501.9520 ####[facility] [address] [place], [address] CNCOon 11-13-2024 CNCO Letter Text Normal [facility] CNOVon 11-11-2024 CNOV Office Visit ([facility]ST[facility] ) KATHLEEN VILLA ([id number]) 1995 F CHT Date Time Provider Department 11/11/24 10:30 AM LETICIA HYLTON [facility] During your visit today, we recorded the following information about you: Pulse Blood pressure Weight Height 107/minute 103/66 77 kg 1.753 m Letciia Hylton DO 11/11/2024 10:44 AM Signed FOLLOW [...] every 24 hours. 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 [facility]ATH[facility]ILL[facility] ([id number]) 1995 F CHT Date Time Provider Department 11/11/24 LETICIA HYLTON [facility] During your visit today, we recorded the following information about you: Guero Hammer LPN 11/11/2024 2:03 PM Signed Please let her know that her x-ray demonstrates a significantly large amount of stool throughout the colon. [facility] spoke with patient [...] Rash Date Reviewed: 11/11/2024 Reviewed by: Leticia Hylton DO - Fully Assessed Prescriptions as of [...] Units subcutaneously every 24 hours. 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 Normal [facility] XR ABDOMEN 1V SUPINEon 11-11 XR [...] on Nov 11 2024 11:13AM EST [id number] [facility] XR Abdomen Supine and Uprigh ton 11-11-2024 IMPRESSION: Moderate-large colonic stool burden. No dilated bowel. Transcribed Using Voice Recognition Transcribe Date/Time: Nov 11 2024 11:10A Dictated by: TRES EVANS DO This examination was interpreted and the report reviewed and electronically signed by: TRES EVANS DO on Nov 11 2024 11:13AM EST [facility] RADIOLOGY * * *Final Report* * * [...] right lower abdomen/pelvis. No acute bony abnormality. [facility] RADIOLOGY Provider, Ama Armando [facility] - 11/11/2024 * * *Final Report* * [...] DO on Nov 11 2024 11:13AM EST [facility] Radiology Study observation (narrative) [facility] XR Abdomen Supine and Uprigh tOrdered By: [facility] Provider on 11-11-2024 [facility] Basic Metabolic Profile (BMP )on 11-06-2024 BUN/CRE 16.8 RATIO Normal 10-20 [facility] Comment on above: Performed By: #### L 500.2500 ####[facility] [address] [place], [address] Calcium [Mass/Vol] 8.0 mg/dL Normal 7.6-11.0 [facility] Comment on above: Performed By: #### L 500.2500 ####[facility] [address] [place], [address] Chloride [Moles/Vol] 104 mmol/L Normal 98-108 [facility] Comment on above: Performed By: #### L 500.2500 ####[facility] [address] [place], [address] CO2 [Moles/Vol] 21.1 mmol/L Normal 21.0-32.0 [facility] Comment on above: Performed By: #### L 500.2500 ####[facility] [address] [place], [address] Creatinine [Mass/Vol] 0.64 mg/dL Low 0.70-1.20 [facility] Comment on above: Performed By: #### L 500.2500 ####[facility] [address] [place], [address] ECRCL 134.33 ml/min Normal 50-250 [facility] Comment on above: Performed By: #### L 500.2500 ####[facility] [address] [place], [address] GAP 12 Normal 5-15 [facility] Comment on above: Performed By: #### L 500.2500 ####[facility] [address] [place], [address] GFR/1.73 sq M.predicted among non-blacks MDRD (S/P/Bld) [Vol rate/Area] 122 mL/min/{1.73_m2} Normal >60 [facility] Comment on above: Result Comment: mL/m in/1.73m2 CKD-EPI Creatinine Equation (2020) Performed By: #### L 500.2500 ####[facility] [address] [place], [address] Glucose [Mass/Vol] 64 mg/dL Low 70-99 [facility] Comment on above: Performed By: #### L 500.2500 ####[facility] [address] [place], [address] Potassium [Moles/Vol] 3.3 mmol/L Normal 3.3-5.1 [facility] Comment on above: Performed By: #### L 500.2500 ####[facility] [address] [place], [address] Sodium [Moles/Vol] 137 mmol/L Normal 133-145 [facility] Comment on above: Performed By: #### L 500.2500 ####[facility] [address] [place], [address] Urea nitrogen [Mass/Vol] 11 mg/dL Normal 4-19 [facility] Comment on above: Performed By: #### L 500.2500 ####[facility] [address] [place], [address] Bedside Glucoseon 11-06-2024 FINGERSTICK GLU 100 mg/dL Normal 74-106 [facility] Comment on above: Result Comment: EDGAR GEMENT OF PATIENT CARE PER NURSING PROTOCOL Performed By: #### L 501.080 ####[facility] [address] [place], [address] FINGERSTICK GLU 151 mg/dL High 74-106 [facility] Comment on above: Result Comment: EDGAR GEMENT OF PATIENT CARE PER NURSING PROTOCOL Performed By: #### L 501.080 ####[facility] [address] [place], [address] FINGERSTICK GLU 153 mg/dL High 74-106 [facility] Comment on above: Result Comment: EDGAR GEMENT OF PATIENT CARE PER NURSING PROTOCOL Performed By: #### L 501.080 ####[facility] [address] [place], [address] FINGERSTICK GLU 50 mg/dL Low 74-106 [facility] Comment on above: Result Comment: EDGAR GEMENT OF PATIENT CARE PER NURSING PROTOCOL Performed By: #### L 501.080 ####[facility] [address] [place], [address] FINGERSTICK GLU 141 mg/dL High 74-106 [facility] Comment on above: Result Comment: EDGAR GEMENT OF PATIENT CARE PER NURSING PROTOCOL Performed By: #### L 501.080 ####[facility] [address] [place], [address] FINGERSTICK GLU 129 mg/dL High 74-106 [facility] Comment on above: Result Comment: EDGAR HUNG OF PATIENT CARE PER NURSING PROTOCOL Performed By: #### L 501.080 ####[facility] [address] [place], [address] CBC W/Diff, Automatedon 10-26 Absolute Lymph 2.60 X10 3/uL Normal 0.83-4.51 [facility] Comment on above: Performed By: #### L 100.0100 ####[facility] [address] [place], [address] Absolute Neut 7.6 X10 3/uL Normal 2.0-7.7 [facility] Comment on above: Performed By: #### L 100.0100 ####[facility] [address] [place], [address] Basophils/100 WBC (Bld) 0.5 % Normal 0-1 [facility] Comment on above: Performed By: #### L 100.0100 ####[facility] [address] [place], [address] Eosinophils/100 WBC (Bld) 0.4 % Normal 0-5 [facility] Comment on above: Performed By: #### L 100.0100 ####[facility] [address] [place], [address] Erythrocyte distribution width (RBC) [Ratio] 13.7 % Normal 11.6-14.6 [facility] Comment on above: Performed By: #### L 100.0100 ####[facility] [address] [place], [address] Hematocrit (Bld) [Volume fraction] 36.0 % Low 37-47 [facility] Comment on above: Performed By: #### L 100.0100 ####[facility] [address] [place], [address] Hemoglobin (Bld) [Mass/Vol] 12.2 g/dL Normal 12.0-15.0 [facility] Comment on above: Performed By: #### L 100.0100 ####[facility] [address] [place], [address] IG% 1.000 High 0.0-0.9 [facility] Comment on above: Result Comment: IG% - Immature Granulocytes (promyelocytes, myelocytes andmetamyelocytes) > 1% indicates that a LEFT SHIFT is Present. Performed By: #### L 100.0100 ####[facility] [address] [place], [address] Lymphocytes/100 WBC (Bld) 23.4 % Normal 19-41 [facility] Comment on above: Performed By: #### L 100.0100 ####[facility] [address] [place], [address] MCH (RBC) [Entitic mass] 29.7 pg Normal 27.0-32.0 [facility] Comment on above: Performed By: #### L 100.0100 ####[facility] [address] [place], [address] MCHC (RBC) [Mass/Vol] 33.9 g/dL Normal 32-36 [facility] Comment on above: Performed By: #### L 100.0100 ####[facility] [address] [place], [address] MCV (RBC) [Entitic vol] 87.6 fL Normal 81-99 [facility] Comment on above: Performed By: #### L 100.0100 ####[facility] [address] [place], [address] Monocytes/100 WBC (Bld) 6.7 % Normal 0-10 [facility] Comment on above: Performed By: #### L 100.0100 ####[facility] [address] [place], [address] Neutrophils/100 WBC (Bld) 68.0 % Normal 47-70 [facility] Comment on above: Performed By: #### L 100.0100 ####[facility] [address] [place], [address] Nucleated RBC (Bld) [#/Vol] 0 10*3/uL Normal 0-5 [facility] Comment on above: Performed By: #### L 100.0100 ####[facility] [address] [place], [address] Platelet mean volume (Bld) [Entitic vol] 10.8 fL Normal 6.2-12.0 [facility] Comment on above: Performed By: #### L 100.0100 ####[facility] [address] [place], [address] Platelets (Bld) [#/Vol] 188 10*3/uL Normal 150-450 [facility] Comment on above: Performed By: #### L 100.0100 ####[facility] [address] [place], [address] RBC (Bld) [#/Vol] 4.11 10*6/uL Low 4.2-5.4 [facility] Comment on above: Performed By: #### L 100.0100 ####[facility] [address] [place], [address] RDW SD 43.6 fl Normal 35.1-43.9 [facility] Comment on above: Performed By: #### L 100.0100 ####[facility] [address] [place], [address] WBC (Bld) [#/Vol] 11.1 10*3/uL High 4.4-11.0 [facility] Comment on above: Performed By: #### L 100.0100 ####[facility] [address] [place], [address] Comprehensive Metabolic Prof ilon 11-06-2024 Albumin [Mass/Vol] 3.6 g/dL Normal 3.5-5.0 [facility] Comment on above: Order Comment: CMP-T IMED FOR A Q6 BMP Performed By: #### L 501.5200, L501.2300, L500.4050 ####[facility] [address] [place], [address] Albumin/Globulin [Mass ratio] 1.6 {ratio} Normal 0.9-2.4 [facility] Comment on above: Order Comment: CMP-T IMED FOR A Q6 BMP Performed By: #### L 501.5200, L501.2300, L500.4050 ####[facility] [address] [place], [address] ALK PHOS 76 U/L Normal 35-104 [facility] Comment on above: Order Comment: CMP-T IMED FOR A Q6 BMP Performed By: #### L 501.5200, L501.2300, L500.4050 ####[facility] [address] [place], [address] ALT [Catalytic activity/Vol] 14 U/L Normal <=34 [facility] Comment on above: Order Comment: CMP-T IMED FOR A Q6 BMP Performed By: #### L 501.5200, L501.2300, L500.4050 ####[facility] [address] [place], [address] AST [Catalytic activity/Vol] 17 U/L Normal <=31 [facility] Comment on above: Order Comment: CMP-T IMED FOR A Q6 BMP Performed By: #### L 501.5200, L501.2300, L500.4050 ####[facility] [address] [place], [address] Bilirubin [Mass/Vol] 0.91 mg/dL Normal 0.00-1.30 [facility] Comment on above: Order Comment: CMP-T IMED FOR A Q6 BMP Performed By: #### L 501.5200, L501.2300, L500.4050 ####[facility] [address] [place], [address] BUN/CRE 12.2 RATIO Normal 10-20 [facility] Comment on above: Order Comment: CMP-T IMED FOR A Q6 BMP Performed By: #### L 501.5200, L501.2300, L500.4050 ####[facility] [address] [place], [address] Calcium [Mass/Vol] 8.2 mg/dL Normal 7.6-11.0 [facility] Comment on above: Order Comment: CMP-T IMED FOR A Q6 BMP Performed By: #### L 501.5200, L501.2300, L500.4050 ####[facility] [address] [place], [address] Chloride [Moles/Vol] 105 mmol/L Normal 98-108 [facility] Comment on above: Order Comment: CMP-T IMED FOR A Q6 BMP Performed By: #### L 501.5200, L501.2300, L500.4050 ####[facility] [address] [place], [address] CO2 [Moles/Vol] 22.2 mmol/L Normal 21.0-32.0 [facility] Comment on above: Order Comment: CMP-T IMED FOR A Q6 BMP Performed By: #### L 501.5200, L501.2300, L500.4050 ####[facility] [address] [place], [address] Creatinine [Mass/Vol] 0.61 mg/dL Low 0.70-1.20 [facility] Comment on above: Order Comment: CMP-T IMED FOR A Q6 BMP Performed By: #### L 501.5200, L501.2300, L500.4050 ####[facility] [address] [place], [address] ECRCL 140.93 ml/min Normal 50-250 [facility] Comment on above: Order Comment: CMP-T IMED FOR A Q6 BMP Performed By: #### L 501.5200, L501.2300, L500.4050 ####[facility] [address] [place], [address] GAP 11 Normal 5-15 [facility] Comment on above: Order Comment: CMP-T IMED FOR A Q6 BMP Performed By: #### L 501.5200, L501.2300, L500.4050 ####[facility] [address] [place], [address] GFR/1.73 sq M.predicted among non-blacks MDRD (S/P/Bld) [Vol rate/Area] 123 mL/min/{1.73_m2} Normal >60 [facility] Comment on above: Order Comment: CMP-T IMED FOR A Q6 BMP Result Comment: mL/m in/1.73m2 CKD-EPI Creatinine Equation (2020) Performed By: #### L 501.5200, L501.2300, L500.4050 ####[facility] [address] [place], [address] Globulin (S) [Mass/Vol] 2.2 g/dL Normal 2.2-4.2 [facility] Comment on above: Order Comment: CMP-T IMED FOR A Q6 BMP Performed By: #### L 501.5200, L501.2300, L500.4050 ####[facility] [address] [place], [address] Glucose [Mass/Vol] 122 mg/dL High 70-99 [facility] Comment on above: Order Comment: CMP-T IMED FOR A Q6 BMP Performed By: #### L 501.5200, L501.2300, L500.4050 ####[facility] [address] [place], [address] Potassium [Moles/Vol] 3.4 mmol/L Normal 3.3-5.1 [facility] Comment on above: Order Comment: CMP-T IMED FOR A Q6 BMP Performed By: #### L 501.5200, L501.2300, L500.4050 ####[facility] [address] [place], [address] Sodium [Moles/Vol] 138 mmol/L Normal 133-145 [facility] Comment on above: Order Comment: CMP-T IMED FOR A Q6 BMP Performed By: #### L 501.5200, L501.2300, L500.4050 ####[facility] [address] [place], [address] T PROT 5.9 g/dL Normal 5.9-8.4 [facility] Comment on above: Order Comment: CMP-T IMED FOR A Q6 BMP Performed By: #### L 501.5200, L501.2300, L500.4050 ####[facility] [address] [place], [address] Urea nitrogen [Mass/Vol] 7 mg/dL Normal 4-19 [facility] Comment on above: Order Comment: CMP-T IMED FOR A Q6 BMP Performed By: #### L 501.5200, L501.2300, L500.4050 ####[facility] [address] [place], [address] Discharge Instructionon 10-26 Discharge Instruction Normal [facility] Magnesiumon 03-12-2025 Magnesium [Mass/Vol] 2.2 mg/dL Normal 1.5-2.2 [facility] Comment on above: Order Comment: CMP-T IMED FOR A Q6 BMP Performed By: #### L 501.5200, L501.2300, L500.4050 ####[facility] [address] [place], [address] Phosphoruson 11-06-2024 Phosphate [Mass/Vol] 2.1 mg/dL Low 2.7-4.5 [facility] Comment on above: Order Comment: CMP-T IMED FOR A Q6 BMP Performed By: #### L 501.5200, L501.2300, L500.4050 ####[facility] [address] [place], [address] Urine Drug Screen (VISTA)on 11-06-2024 AMPHETAMINES Negative Normal <1000 ng/mL [facility] Comment on above: Performed By: #### L 505.5000 ####[facility] [address] [place], [address] BARBITIURATES Negative Normal < 200 ng/mL [facility] Comment on above: Performed By: #### L 505.5000 ####[facility] [address] [place], [address] BENZODIAZIPINE Negative Normal < 200 ng/mL [facility] Comment on above: Performed By: #### L 505.5000 ####[facility] [address] [place], [address] BUP Ur Drug Scr Negative Normal < 200 ng/mL [facility] Comment on above: Performed By: #### L 505.5000 ####[facility] [address] [place], [address] COCAINE Negative Normal < 300 ng/mL [facility] Comment on above: Performed By: #### L 505.5000 ####[facility] [address] [place], [address] Fentanyl Negative Normal [facility] Comment on above: Performed By: #### L 505.5000 ####[facility] [address] [place], [address] METHADONE Negative Normal < 300 ng/mL [facility] Comment on above: Performed By: #### L 505.5000 ####[facility] [address] [place], [address] OPIATES Negative Normal < 300 ng/mL [facility] Comment on above: Performed By: #### L 505.5000 ####[facility] [address] [place], [address] OXYCODONE Negative Normal < 100 ng/mL [facility] Comment on above: Performed By: #### L 505.5000 ####[facility] [address] [place], [address] PCP Negative Normal < 25 ng/mL [facility] Comment on above: Performed By: #### L 505.5000 ####[facility] [address] [place], [address] THC Positive Normal < 50 ng/mL [facility] Comment on above: Result Comment: If c onfirmation testing is needed, a separate order will berequired to send out testing to the reference laboratory. Performed By: #### L 505.5000 ####[facility] [address] [place], [address] Basic Metabolic Profile (BMP )on 11-05-2024 BUN/CRE 18.5 RATIO Normal 10-20 [facility] Comment on above: Performed By: #### L 500.2500 ####[facility] [address] [place], [address] Calcium [Mass/Vol] 7.5 mg/dL Low 7.6-11.0 [facility] Comment on above: Performed By: #### L 500.2500 ####[facility] [address] [place], [address] Chloride [Moles/Vol] 99 mmol/L Normal 98-108 [facility] Comment on above: Performed By: #### L 500.2500 ####[facility] [address] [place], [address] CO2 [Moles/Vol] 15.7 mmol/L Low 21.0-32.0 [facility] Comment on above: Performed By: #### L 500.2500 ####[facility] [address] [place], [address] Creatinine [Mass/Vol] 0.74 mg/dL Normal 0.70-1.20 [facility] Comment on above: Performed By: #### L 500.2500 ####[facility] [address] [place], [address] ECRCL 116.17 ml/min Normal 50-250 [facility] Comment on above: Performed By: #### L 500.2500 ####[facility] [address] [place], [address] GAP 18 High 5-15 [facility] Comment on above: Performed By: #### L 500.2500 ####[facility] [address] [place], [address] GFR/1.73 sq M.predicted among non-blacks MDRD (S/P/Bld) [Vol rate/Area] 111 mL/min/{1.73_m2} Normal >60 [facility] Comment on above: Result Comment: mL/m in/1.73m2 CKD-EPI Creatinine Equation (2020) Performed By: #### L 500.2500 ####[facility] [address] [place], [address] Glucose [Mass/Vol] 176 mg/dL High 70-99 [facility] Comment on above: Performed By: #### L 500.2500 ####[facility] [address] [place], [address] Potassium [Moles/Vol] 4.8 mmol/L Normal 3.3-5.1 [facility] Comment on above: Performed By: #### L 500.2500 ####[facility] [address] [place], [address] Sodium [Moles/Vol] 133 mmol/L Normal 133-145 [facility] Comment on above: Performed By: #### L 500.2500 ####[facility] [address] [place], [address] Urea nitrogen [Mass/Vol] 14 mg/dL Normal 4-19 [facility] Comment on above: Performed By: #### L 500.2500 ####[facility] [address] [place], [address] BUN Normal 4-19 [facility] Comment on above: Result Comment: DUPL ICATE Performed By: #### L 500.2500 ####[facility] [address] [place], [address] BUN/CRE Normal 10-20 [facility] Comment on above: Result Comment: DUPL ICATE Performed By: #### L 500.2500 ####[facility] [address] [place], [address] Calcium Normal 7.6-11.0 [facility] Comment on above: Result Comment: DUPL ICATE Performed By: #### L 500.2500 ####[facility] [address] [place], [address] CL Normal 98-108 [facility] Comment on above: Result Comment: DUPL ICATE Performed By: #### L 500.2500 ####[facility] [address] [place], [address] CO2 Normal 21.0-32.0 [facility] Comment on above: Result Comment: DUPL ICATE Performed By: #### L 500.2500 ####[facility] [address] [place], [address] CREAT,SERUM Normal 0.70-1.20 [facility] Comment on above: Result Comment: DUPL ICATE Performed By: #### L 500.2500 ####[facility] [address] [place], [address] eGFR Normal >60 [facility] Comment on above: Result Comment: DUPL ICATE Performed By: #### L 500.2500 ####[facility] [address] [place], [address] GAP Normal 5-15 [facility] Comment on above: Result Comment: DUPL ICATE Performed By: #### L 500.2500 ####[facility] [address] [place], [address] GLU Normal 70-99 [facility] Comment on above: Result Comment: DUPL ICATE Performed By: #### L 500.2500 ####[facility] [address] [place], [address] Potassium Normal 3.3-5.1 [facility] Comment on above: Result Comment: DUPL ICATE Performed By: #### L 500.2500 ####[facility] [address] [place], [address] Basic Metabolic Profile (BMP) Normal 133-145 [facility] Comment on above: Result Comment: DUPL ICATE Performed By: #### L 500.2500 ####[facility] [address] [place], [address] Bedside Glucoseon 11-05-2024 FINGERSTICK GLU 109 mg/dL High 74-106 [facility] Comment on above: Result Comment: EDGAR HUNG OF PATIENT CARE PER NURSING PROTOCOL Performed By: #### L 501.080 ####[facility] [address] [place], [address] FINGERSTICK GLU 222 mg/dL High 74-106 [facility] Comment on above: Result Comment: EDGAR HUNG OF PATIENT CARE PER NURSING PROTOCOL Performed By: #### L 501.080 ####[facility] [address] [place], [address] [facility] GEM TEST Positive Normal [facility] Comment on above: Performed By: #### L 9000.0800 ####[facility] [address] [place], [address] Base excess Calc (Bld) [Moles/Vol] -5 mmol/L Low -2 to +2 [facility] Comment on above: Performed By: #### L 9000.0800 ####[facility] [address] [place], [address] Blood Gas Type ART Normal [facility] Comment on above: Performed By: #### L 9000.0800 ####[facility] [address] [place], [address] CO2 [Moles/Vol] 21 mmol/L Normal [facility] Comment on above: Performed By: #### L 9000.0800 ####[facility] [address] [place], [address] HCO3 (Bld) [Moles/Vol] 19.9 mmol/L Low 22-26 [facility] Comment on above: Performed By: #### L 9000.0800 ####[facility] [address] [place], [address] Mode Not entered Normal [facility] Comment on above: Performed By: #### L 9000.0800 ####[facility] [address] [place], [address] O2 Delivery Dev Room Air Normal [facility] Comment on above: Performed By: #### L 9000.0800 ####[facility] [address] [place], [address] pCO2 31.1 mmHg Low 35-45 [facility] Comment on above: Performed By: #### L 9000.0800 ####[facility] [address] [place], [address] pH (Bld) 7.42 [pH] Normal 7.35-7.45 [facility] Comment on above: Performed By: #### L 9000.0800 ####[facility] [address] [place], [address] PO2 89 mmHG Normal 75-100 [facility] Comment on above: Performed By: #### L 9000.0800 ####[facility] [address] [place], [address] SITE L Radial Normal [facility] Comment on above: Performed By: #### L 9000.0800 ####[facility] [address] [place], [address] SO2 97 Normal 95-99 [facility] Comment on above: Performed By: #### L 9000.0800 ####[facility] [address] [place], [address] CBC W/Diff, Automatedon 10-26 Absolute Lymph 0.93 X10 3/uL Normal 0.83-4.51 [facility] Comment on above: Performed By: #### L 500.4050, L100.0100, L503.6005, L501.2450, L700.6800 ####[facility] [address] [place], [address] Absolute Neut 13.4 X10 3/uL High 2.0-7.7 [facility] Comment on above: Performed By: #### L 500.4050, L100.0100, L503.6005, L501.2450, L700.6800 ####[facility] [address] [place], [address] Basophils/100 WBC (Bld) 0.2 % Normal 0-1 [facility] Comment on above: Performed By: #### L 500.4050, L100.0100, L503.6005, L501.2450, L700.6800 ####[facility] [address] [place], [address] Eosinophils/100 WBC (Bld) 0.0 % Normal 0-5 [facility] Comment on above: Performed By: #### L 500.4050, L100.0100, L503.6005, L501.2450, L700.6800 ####[facility] [address] [place], [address] Erythrocyte distribution width (RBC) [Ratio] 13.6 % Normal 11.6-14.6 [facility] Comment on above: Performed By: #### L 500.4050, L100.0100, L503.6005, L501.2450, L700.6800 ####[facility] [address] [place], [address] Hematocrit (Bld) [Volume fraction] 38.0 % Normal 37-47 [facility] Comment on above: Performed By: #### L 500.4050, L100.0100, L503.6005, L501.2450, L700.6800 ####[facility] [address] [place], [address] Hemoglobin (Bld) [Mass/Vol] 12.7 g/dL Normal 12.0-15.0 [facility] Comment on above: Performed By: #### L 500.4050, L100.0100, L503.6005, L501.2450, L700.6800 ####[facility] [address] [place], [address] IG% 1.000 High 0.0-0.9 [facility] Comment on above: Result Comment: IG% - Immature Granulocytes (promyelocytes, myelocytes andmetamyelocytes) > 1% indicates that a LEFT SHIFT is Present. Performed By: #### L 500.4050, L100.0100, L503.6005, L501.2450, L700.6800 ####[facility] [address] [place], [address] Lymphocytes/100 WBC (Bld) 6.1 % Low 19-41 [facility] Comment on above: Performed By: #### L 500.4050, L100.0100, L503.6005, L501.2450, L700.6800 ####[facility] [address] [place], [address] MCH (RBC) [Entitic mass] 29.9 pg Normal 27.0-32.0 [facility] Comment on above: Performed By: #### L 500.4050, L100.0100, L503.6005, L501.2450, L700.6800 ####[facility] [address] [place], [address] MCHC (RBC) [Mass/Vol] 33.4 g/dL Normal 32-36 [facility] Comment on above: Performed By: #### L 500.4050, L100.0100, L503.6005, L501.2450, L700.6800 ####[facility] [address] [place], [address] MCV (RBC) [Entitic vol] 89.4 fL Normal 81-99 [facility] Comment on above: Performed By: #### L 500.4050, L100.0100, L503.6005, L501.2450, L700.6800 ####[facility] [address] [place], [address] Monocytes/100 WBC (Bld) 4.7 % Normal 0-10 [facility] Comment on above: Performed By: #### L 500.4050, L100.0100, L503.6005, L501.2450, L700.6800 ####[facility] [address] [place], [address] Neutrophils/100 WBC (Bld) 88.0 % High 47-70 [facility] Comment on above: Performed By: #### L 500.4050, L100.0100, L503.6005, L501.2450, L700.6800 ####[facility] [address] [place], [address] Nucleated RBC (Bld) [#/Vol] 0 10*3/uL Normal 0-5 [facility] Comment on above: Performed By: #### L 500.4050, L100.0100, L503.6005, L501.2450, L700.6800 ####[facility] [address] [place], [address] Platelet mean volume (Bld) [Entitic vol] 11.7 fL Normal 6.2-12.0 [facility] Comment on above: Performed By: #### L 500.4050, L100.0100, L503.6005, L501.2450, L700.6800 ####[facility] [address] [place], [address] Platelets (Bld) [#/Vol] 201 10*3/uL Normal 150-450 [facility] Comment on above: Performed By: #### L 500.4050, L100.0100, L503.6005, L501.2450, L700.6800 ####[facility] [address] [place], [address] RBC (Bld) [#/Vol] 4.25 10*6/uL Normal 4.2-5.4 [facility] Comment on above: Performed By: #### L 500.4050, L100.0100, L503.6005, L501.2450, L700.6800 ####[facility] [address] [place], [address] RDW SD 44.6 fl High 35.1-43.9 [facility] Comment on above: Performed By: #### L 500.4050, L100.0100, L503.6005, L501.2450, L700.6800 ####[facility] [address] [place], [address] WBC (Bld) [#/Vol] 15.2 10*3/uL High 4.4-11.0 [facility] Comment on above: Performed By: #### L 500.4050, L100.0100, L503.6005, L501.2450, L700.6800 ####[facility] [address] [place], [address] [facility] KATHLEEN VILLA ([id number]) 1995 F T Date Time Provider Department 11/05/24 LETICIA HYLTON [facility] During your visit today, we recorded [...] Units subcutaneously every 24 hours. 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 Normal [facility] Metabolic Prof kyon 11-05-2024 Albumin [Mass/Vol] 4.1 g/dL Normal 3.5-5.0 [facility] Comment on above: Performed By: #### L 500.4050, L100.0100, L503.6005, L501.2450, L700.6800 ####[facility] [address] [place], [address] Albumin/Globulin [Mass ratio] 1.5 {ratio} Normal 0.9-2.4 [facility] Comment on above: Performed By: #### L 500.4050, L100.0100, L503.6005, L501.2450, L700.6800 ####[facility] [address] [place], [address] ALK PHOS 89 U/L Normal 35-104 [facility] Comment on above: Performed By: #### L 500.4050, L100.0100, L503.6005, L501.2450, L700.6800 ####[facility] [address] [place], [address] ALT [Catalytic activity/Vol] 17 U/L Normal <=34 [facility] Comment on above: Performed By: #### L 500.4050, L100.0100, L503.6005, L501.2450, L700.6800 ####[facility] [address] [place], [address] AST [Catalytic activity/Vol] 21 U/L Normal <=31 [facility] Comment on above: Performed By: #### L 500.4050, L100.0100, L503.6005, L501.2450, L700.6800 ####[facility] [address] [place], [address] Bilirubin [Mass/Vol] 1.15 mg/dL Normal 0.00-1.30 [facility] Comment on above: Performed By: #### L 500.4050, L100.0100, L503.6005, L501.2450, L700.6800 ####[facility] [address] [place], [address] BUN/CRE 18.4 RATIO Normal 10-20 [facility] Comment on above: Performed By: #### L 500.4050, L100.0100, L503.6005, L501.2450, L700.6800 ####[facility] [address] [place], [address] Calcium [Mass/Vol] 8.2 mg/dL Normal 7.6-11.0 [facility] Comment on above: Performed By: #### L 500.4050, L100.0100, L503.6005, L501.2450, L700.6800 ####[facility] [address] [place], [address] Chloride [Moles/Vol] 94 mmol/L Low 98-108 [facility] Comment on above: Performed By: #### L 500.4050, L100.0100, L503.6005, L501.2450, L700.6800 ####[facility] [address] [place], [address] CO2 [Moles/Vol] 12.8 mmol/L Low 21.0-32.0 [facility] Comment on above: Performed By: #### L 500.4050, L100.0100, L503.6005, L501.2450, L700.6800 ####[facility] [address] [place], [address] Creatinine [Mass/Vol] 0.86 mg/dL Normal 0.70-1.20 [facility] Comment on above: Performed By: #### L 500.4050, L100.0100, L503.6005, L501.2450, L700.6800 ####[facility] [address] [place], [address] ECRCL 99.96 ml/min Normal 50-250 [facility] Comment on above: Performed By: #### L 500.4050, L100.0100, L503.6005, L501.2450, L700.6800 ####[facility] [address] [place], [address] GAP 27 High 5-15 [facility] Comment on above: Performed By: #### L 500.4050, L100.0100, L503.6005, L501.2450, L700.6800 ####[facility] [address] [place], [address] GFR/1.73 sq M.predicted among non-blacks MDRD (S/P/Bld) [Vol rate/Area] 93 mL/min/{1.73_m2} Normal >60 [facility] Comment on above: Result Comment: mL/m in/1.73m2 CKD-EPI Creatinine Equation (2020) Performed By: #### L 500.4050, L100.0100, L503.6005, L501.2450, L700.6800 ####[facility] [address] [place], [address] Globulin (S) [Mass/Vol] 2.8 g/dL Normal 2.2-4.2 [facility] Comment on above: Performed By: #### L 500.4050, L100.0100, L503.6005, L501.2450, L700.6800 ####[facility] [address] [place], [address] Glucose [Mass/Vol] 251 mg/dL High 70-99 [facility] Comment on above: Performed By: #### L 500.4050, L100.0100, L503.6005, L501.2450, L700.6800 ####[facility] [address] [place], [address] Potassium [Moles/Vol] 3.0 mmol/L Low 3.3-5.1 [facility] Comment on above: Performed By: #### L 500.4050, L100.0100, L503.6005, L501.2450, L700.6800 ####[facility] [address] [place], [address] Sodium [Moles/Vol] 134 mmol/L Normal 133-145 [facility] Comment on above: Performed By: #### L 500.4050, L100.0100, L503.6005, L501.2450, L700.6800 ####[facility] [address] [place], [address] T PROT 6.9 g/dL Normal 5.9-8.4 [facility] Comment on above: Performed By: #### L 500.4050, L100.0100, L503.6005, L501.2450, L700.6800 ####[facility] [address] [place], [address] Urea nitrogen [Mass/Vol] 16 mg/dL Normal 4-19 [facility] Comment on above: Performed By: #### L 500.4050, L100.0100, L503.6005, L501.2450, L700.6800 ####[facility] [address] [place], [address] Emergency Department Summary on 11-05-2024 Emergency Department Summary Normal [facility] Gallbladderon 11-05-2024 Gallbladder Normal [facility] H AND P Exam - Hospitaliston 11-05-2024 H&P Exam - Hospitalist Normal [facility] L501.6901on 11-05-2024 BETA-HYDROXYBUT 7.1 mmol/L Normal 0.0-0.3 [facility] Comment on above: Performed By: #### L 501.6901 ####[facility] [address] [place], [address] Lactic Acidon 11-05-2024 Lactate [Moles/Vol] mmol/L Normal 0.0-2.0 [facility] Comment on above: Order Comment: Y Performed By: #### L 500.4050, L100.0100, L503.6005, L501.2450, L700.6800 ####[facility] [address] [place], [address] Lipaseon 11-05-2024 Lipase [Catalytic activity/Vol] 13 U/L Normal 13-75 [facility] Comment on above: Result Comment: Sulma schmitz note:LIPASE revised reference range effective 22.New Lipase methodology. Expected to produce lower valuesthan the previous assay method.NEW Reference Range: 13 - 75 U/L Performed By: #### L 500.4050, L100.0100, L503.6005, L501.2450, L700.6800 ####[facility] [address] [place], [address] ,Serum,hCG Quali.on 11-05-2024 HCG, SERUM QUAL Negative Normal [facility] Comment on above: Performed By: #### L 500.4050, L100.0100, L503.6005, L501.2450, L700.6800 ####[facility] [address] [place], [address] Urinalysis, Completeon 11-05 BACTERIA 1+ /hpf Normal None Seen [facility] Comment on above: Order Comment: CLEAN CATCH Performed By: #### L 400.0001 ####[facility] [address] [place], [address] EPI,SQUAMOUS 0-5 SEEN Normal 5-10 [facility] Comment on above: Order Comment: CLEAN CATCH Performed By: #### L 400.0001 ####[facility] [address] [place], [address] WBC 0-5 SEEN Normal 0-5 [facility] Comment on above: Order Comment: CLEAN CATCH Performed By: #### L 400.0001 ####[facility] [address] [place], [address] RBC 0 SEEN Normal 0-5 [facility] Comment on above: Order Comment: CLEAN CATCH Performed By: #### L 400.0001 ####[facility] [address] [place], [address] Mucus Ql (Urine sed) 0 SEEN Normal [facility] Comment on above: Order Comment: CLEAN CATCH Performed By: #### L 400.0001 ####[facility] [address] [place], [address] Venous Blood Gason 5 Blood Gas Type ISABELLE Normal [facility] Comment on above: Performed By: #### L 9000.0810 ####[facility] [address] [place], [address] CO2 [Moles/Vol] 14 mmol/L Low 23-33 [facility] Comment on above: Performed By: #### L 9000.0810 ####[facility] [address] [place], [address] HCO3 (Bld) [Moles/Vol] 14 mmol/L Low 22-26 [facility] Comment on above: Performed By: #### L 9000.0810 ####[facility] [address] [place], [address] O2 Delivery Dev Not entered Normal [facility] Comment on above: Performed By: #### L 9000.0810 ####[facility] [address] [place], [address] SITE Not entered Normal [facility] Comment on above: Performed By: #### L 9000.0810 ####[facility] [address] [place], [address] VBG BE -11 mmol/L Low -1.0-3.5 [facility] Comment on above: Performed By: #### L 9000.0810 ####[facility] [address] [place], [address] VBG pCO2 20.7 mmHg Low 41-51 [facility] Comment on above: Performed By: #### L 9000.0810 ####[facility] [address] [place], [address] VBG pH 7.43 High 7.32-7.42 [facility] Comment on above: Performed By: #### L 9000.0810 ####[facility] [address] [place], [address] VBG PO2 68 mmHg High 25-40 [facility] Comment on above: Performed By: #### L 9000.0810 ####[facility] [address] [place], [address] VBG SO2 95 High 50-70 [facility] Comment on above: Performed By: #### L 0.0810 ####[facility] [address] [place], [address] L501.6901on 11-04-2024 BETA-HYDROXYBUT 1.5 mmol/L Normal 0.0-0.3 [facility] Comment on above: Performed By: #### L 501.6901 ####[facility] [address] [place], [address] Venous Blood Gason 5 CO2 [Moles/Vol] 20 mmol/L Low 23-33 [facility] Comment on above: Performed By: #### L 9000.0810 ####[facility] [address] [place], [address] HCO3 (Bld) [Moles/Vol] 19 mmol/L Low 22-26 [facility] Comment on above: Performed By: #### L 9000.0810 ####[facility] [address] [place], [address] VBG SO2 94 High 50-70 [facility] Comment on above: Performed By: #### L 9000.0810 ####[facility] [address] [place], [address] Blood Gas Type ISABELLE Normal [facility] Comment on above: Performed By: #### L 900.0810 ####[facility] [address] [place], [address] VBG pCO2 30.3 mmHg Low 41-51 [facility] Comment on above: Performed By: #### L 9000.0810 ####[facility] [address] [place], [address] VBG pH 7.40 Normal 7.32-7.42 [facility] Comment on above: Performed By: #### L 9000.0810 ####[facility] [address] [place], [address] VBG PO2 71 mmHg High 25-40 [facility] Comment on above: Performed By: #### L 9000.0810 ####[facility] [address] [place], [address] Abdomen/Pelvis W IV Cont ONL Yon 11-03-2024 Abdomen/Pelvis W IV Cont ONLY Normal [facility] CBC W/Diff, Automatedon Absolute Lymph 1.92 X10 3/uL Normal 0.83-4.51 [facility] Comment on above: Performed By: #### L 501.2450, L100.0100, L500.4050 ####[facility] [address] [place], [address] Absolute Neut 8.4 X10 3/uL High 2.0-7.7 [facility] Comment on above: Performed By: #### L 501.2450, L100.0100, L500.4050 ####[facility] [address] [place], [address] Basophils/100 WBC (Bld) 0.5 % Normal 0-1 [facility] Comment on above: Performed By: #### L 501.2450, L100.0100, L500.4050 ####[facility] [address] [place], [address] Eosinophils/100 WBC (Bld) 0.3 % Normal 0-5 [facility] Comment on above: Performed By: #### L 501.2450, L100.0100, L500.4050 ####[facility] [address] [place], [address] Erythrocyte distribution width (RBC) [Ratio] 13.2 % Normal 11.6-14.6 [facility] Comment on above: Performed By: #### L 501.2450, L100.0100, L500.4050 ####[facility] [address] [place], [address] Hematocrit (Bld) [Volume fraction] 42.1 % Normal 37-47 [facility] Comment on above: Performed By: #### L 501.2450, L100.0100, L500.4050 ####[facility] [address] [place], [address] Hemoglobin (Bld) [Mass/Vol] 14.2 g/dL Normal 12.0-15.0 [facility] Comment on above: Performed By: #### L 501.2450, L100.0100, L500.4050 ####[facility] [address] [place], [address] IG% 0.800 Normal 0.0-0.9 [facility] Comment on above: Result Comment: IG% - Immature Granulocytes (promyelocytes, myelocytes andmetamyelocytes) > 1% indicates that a LEFT SHIFT is Present. Performed By: #### L 501.2450, L100.0100, L500.4050 ####[facility] [address] [place], [address] Lymphocytes/100 WBC (Bld) 17.5 % Low 19-41 [facility] Comment on above: Performed By: #### L 501.2450, L100.0100, L500.4050 ####[facility] [address] [place], [address] MCH (RBC) [Entitic mass] 29.3 pg Normal 27.0-32.0 [facility] Comment on above: Performed By: #### L 501.2450, L100.0100, L500.4050 ####[facility] [address] [place], [address] MCHC (RBC) [Mass/Vol] 33.7 g/dL Normal 32-36 [facility] Comment on above: Performed By: #### L 501.2450, L100.0100, L500.4050 ####[facility] [address] [place], [address] MCV (RBC) [Entitic vol] 87.0 fL Normal 81-99 [facility] Comment on above: Performed By: #### L 501.2450, L100.0100, L500.4050 ####[facility] [address] [place], [address] Monocytes/100 WBC (Bld) 4.6 % Normal 0-10 [facility] Comment on above: Performed By: #### L 501.2450, L100.0100, L500.4050 ####[facility] [address] [place], [address] Neutrophils/100 WBC (Bld) 76.3 % High 47-70 [facility] Comment on above: Performed By: #### L 501.2450, L100.0100, L500.4050 ####[facility] [address] [place], [address] Nucleated RBC (Bld) [#/Vol] 0 10*3/uL Normal 0-5 [facility] Comment on above: Performed By: #### L 501.2450, L100.0100, L500.4050 ####[facility] [address] [place], [address] Platelet mean volume (Bld) [Entitic vol] 12.4 fL High 6.2-12.0 [facility] Comment on above: Performed By: #### L 501.2450, L100.0100, L500.4050 ####[facility] [address] [place], [address] Platelets (Bld) [#/Vol] 263 10*3/uL Normal 150-450 [facility] Comment on above: Performed By: #### L 501.2450, L100.0100, L500.4050 ####[facility] [address] [place], [address] RBC (Bld) [#/Vol] 4.84 10*6/uL Normal 4.2-5.4 [facility] Comment on above: Performed By: #### L 501.2450, L100.0100, L500.4050 ####[facility] [address] [place], [address] RDW SD 41.6 fl Normal 35.1-43.9 [facility] Comment on above: Performed By: #### L 501.2450, L100.0100, L500.4050 ####[facility] [address] [place], [address] WBC (Bld) [#/Vol] 11.0 10*3/uL Normal 4.4-11.0 [facility] Comment on above: Performed By: #### L 501.2450, L100.0100, L500.4050 ####[facility] [address] [place], [address] Comprehensive Metabolic Prof kyon 11-03-2024 Albumin [Mass/Vol] 4.7 g/dL Normal 3.5-5.0 [facility] Comment on above: Performed By: #### L 501.2450, L100.0100, L500.4050 ####[facility] [address] [place], [address] Albumin/Globulin [Mass ratio] 1.4 {ratio} Normal 0.9-2.4 [facility] Comment on above: Performed By: #### L 501.2450, L100.0100, L500.4050 ####[facility] [address] [place], [address] ALK PHOS 101 U/L Normal 35-104 [facility] Comment on above: Performed By: #### L 501.2450, L100.0100, L500.4050 ####[facility] [address] [place], [address] ALT [Catalytic activity/Vol] 22 U/L Normal <=34 [facility] Comment on above: Performed By: #### L 501.2450, L100.0100, L500.4050 ####[facility] [address] [place], [address] AST [Catalytic activity/Vol] 20 U/L Normal <=31 [facility] Comment on above: Result Comment: Hemo lysis present, Results??could be affected.?? Performed By: #### L 501.2450, L100.0100, L500.4050 ####[facility] [address] [place], [address] Bilirubin [Mass/Vol] 0.98 mg/dL Normal 0.00-1.30 [facility] Comment on above: Performed By: #### L 501.2450, L100.0100, L500.4050 ####[facility] [address] [place], [address] BUN/CRE 17.6 RATIO Normal 10-20 [facility] Comment on above: Performed By: #### L 501.2450, L100.0100, L500.4050 ####[facility] [address] [place], [address] Calcium [Mass/Vol] 9.9 mg/dL Normal 7.6-11.0 [facility] Comment on above: Performed By: #### L 501.2450, L100.0100, L500.4050 ####[facility] [address] [place], [address] Chloride [Moles/Vol] 97 mmol/L Low 98-108 [facility] Comment on above: Performed By: #### L 501.2450, L100.0100, L500.4050 ####[facility] [address] [place], [address] CO2 [Moles/Vol] 18.2 mmol/L Low 21.0-32.0 [facility] Comment on above: Performed By: #### L 501.2450, L100.0100, L500.4050 ####[facility] [address] [place], [address] Creatinine [Mass/Vol] 0.84 mg/dL Normal 0.70-1.20 [facility] Comment on above: Performed By: #### L 501.2450, L100.0100, L500.4050 ####[facility] [address] [place], [address] ECRCL 102.34 ml/min Normal 50-250 [facility] Comment on above: Performed By: #### L 501.2450, L100.0100, L500.4050 ####[facility] [address] [place], [address] GAP 18 High 5-15 [facility] Comment on above: Performed By: #### L 501.2450, L100.0100, L500.4050 ####[facility] [address] [place], [address] GFR/1.73 sq M.predicted among non-blacks MDRD (S/P/Bld) [Vol rate/Area] 96 mL/min/{1.73_m2} Normal >60 [facility] Comment on above: Result Comment: mL/m in/1.73m2 CKD-EPI Creatinine Equation (2020) Performed By: #### L 501.2450, L100.0100, L500.4050 ####[facility] [address] [place], [address] Globulin (S) [Mass/Vol] 3.3 g/dL Normal 2.2-4.2 [facility] Comment on above: Performed By: #### L 501.2450, L100.0100, L500.4050 ####[facility] [address] [place], [address] Glucose [Mass/Vol] 375 mg/dL High 70-99 [facility] Comment on above: Performed By: #### L 501.2450, L100.0100, L500.4050 ####[facility] [address] [place], [address] Potassium [Moles/Vol] 4.4 mmol/L Normal 3.3-5.1 [facility] Comment on above: Result Comment: Hemo lysis present, Results??could be affected.?? Performed By: #### L 501.2450, L100.0100, L500.4050 ####[facility] [address] [place], [address] Sodium [Moles/Vol] 133 mmol/L Normal 133-145 [facility] Comment on above: Performed By: #### L 501.2450, L100.0100, L500.4050 ####[facility] [address] [place], [address] T PROT 7.9 g/dL Normal 5.9-8.4 [facility] Comment on above: Performed By: #### L 501.2450, L100.0100, L500.4050 ####[facility] [address] [place], [address] Urea nitrogen [Mass/Vol] 15 mg/dL Normal 4-19 [facility] Comment on above: Performed By: #### L 501.2450, L100.0100, L500.4050 ####[facility] [address] [place], [address] Emergency Department Summary on 11-03-2024 Emergency Department Summary Normal [facility] Lipaseon 11-03-2024 Lipase [Catalytic activity/Vol] 14 U/L Normal 13-75 [facility] Comment on above: Result Comment: Sulma schmitz note:LIPASE revised reference range effective 22.New Lipase methodology. Expected to produce lower valuesthan the previous assay method.NEW Reference Range: 13 - 75 U/L Performed By: #### L 501.2450, L100.0100, L500.4050 ####[facility] [address] [place], [address] Urinalysis, Completeon 11-03 BACTERIA RARE Normal None Seen [facility] Comment on above: Order Comment: CLEAN CATCH Performed By: #### L 400.0001 ####[facility] [address] [place], [address] EPI,SQUAMOUS 0-5 SEEN Normal 5-10 [facility] Comment on above: Order Comment: CLEAN CATCH Performed By: #### L 400.0001 ####[facility] [address] [place], [address] RBC 0 SEEN Normal 0-5 [facility] Comment on above: Order Comment: CLEAN CATCH Performed By: #### L 400.0001 ####[facility] [address] [place], [address] WBC 0-5 SEEN Normal 0-5 [facility] Comment on above: Order Comment: CLEAN CATCH Performed By: #### L 400.0001 ####[facility] [address] [place], [address] BILIRUBIN URINE Negative Normal Negative [facility] Comment on above: Order Comment: CLEAN CATCH Performed By: #### L 400.0001 ####[facility] [address] [place], [address] Clarity (U) Turbid Normal Clear [facility] Comment on above: Order Comment: CLEAN CATCH Performed By: #### L 400.0001 ####[facility] [address] [place], [address] Color (U) Straw Normal Yellow [facility] Comment on above: Order Comment: CLEAN CATCH Performed By: #### L 400.0001 ####[facility] [address] [place], [address] GLUCOSE, UR 1000 mg/dl Abnormal Normal [facility] Comment on above: Order Comment: CLEAN CATCH Performed By: #### L 400.0001 ####[facility] [address] [place], [address] KETONE UR 50 mg/dl Abnormal Negative [facility] Comment on above: Order Comment: CLEAN CATCH Performed By: #### L 400.0001 ####[facility] [address] [place], [address] LEUK ESTERASE Negative Normal Negative [facility] Comment on above: Order Comment: CLEAN CATCH Performed By: #### L 400.0001 ####[facility] [address] [place], [address] Nitrite Ql (U) Negative Normal Negative [facility] Comment on above: Order Comment: CLEAN CATCH Performed By: #### L 400.0001 ####[facility] [address] [place], [address] OCCULT BLOOD-UR Negative Normal Negative [facility] Comment on above: Order Comment: CLEAN CATCH Performed By: #### L 400.0001 ####[facility] [address] [place], [address] pH UR 6.0 Normal 5.0 - 8.0 [facility] Comment on above: Order Comment: CLEAN CATCH Performed By: #### L 400.0001 ####[facility] [address] [place], [address] PROT DIPSTX Negative Normal Negative [facility] Comment on above: Order Comment: CLEAN CATCH Performed By: #### L 400.0001 ####[facility] [address] [place], [address] SP.GR. DIPSTX 1.015 Normal 1.002-1.030 [facility] Comment on above: Order Comment: CLEAN CATCH Performed By: #### L 400.0001 ####[facility] [address] [place], [address] UROBILI Normal Normal Normal [facility] Comment on above: Order Comment: CLEAN CATCH Performed By: #### L 400.0001 ####[facility] [address] [place], [address] Mucus Ql (Urine sed) 0 SEEN Normal [facility] Comment on above: Order Comment: CLEAN CATCH Performed By: #### L 400.0001 ####[facility] [address] [place], [address] Basic Metabolic Profile (BMP )on 10-27-2024 BUN Normal 7-18 [facility] Comment on above: Result Comment: Canc elled via OM: Order cancelled - Patient discharged Performed By: #### L 100.0100, L500.2500 ####[facility] [address] [place], [address] BUN/CRE Normal 10-20 [facility] Comment on above: Result Comment: Canc elled via OM: Order cancelled - Patient discharged Performed By: #### L 100.0100, L500.2500 ####[facility] [address] [place], [address] CA,Total Normal 8.5-10.1 [facility] Comment on above: Result Comment: Canc elled via OM: Order cancelled - Patient discharged Performed By: #### L 100.0100, L500.2500 ####[facility] [address] [place], [address] CL Normal 98-107 [facility] Comment on above: Result Comment: Canc elled via OM: Order cancelled - Patient discharged Performed By: #### L 100.0100, L500.2500 ####[facility] [address] [place], [address] CO2 Normal 21.0-32.0 [facility] Comment on above: Result Comment: Canc elled via OM: Order cancelled - Patient discharged Performed By: #### L 100.0100, L500.2500 ####[facility] [address] [place], [address] CREAT,SERUM Normal 0.55-1.02 [facility] Comment on above: Result Comment: Canc elled via OM: Order cancelled - Patient discharged Performed By: #### L 100.0100, L500.2500 ####[facility] [address] [place], [address] EST GFR Normal >60 [facility] Comment on above: Result Comment: Canc elled via OM: Order cancelled - Patient discharged Performed By: #### L 100.0100, L500.2500 ####[facility] [address] [place], [address] EST GFR - AA Normal >60 [facility] Comment on above: Result Comment: Canc elled via OM: Order cancelled - Patient discharged Performed By: #### L 100.0100, L500.2500 ####[facility] [address] [place], [address] GAP Normal 5-15 [facility] Comment on above: Result Comment: Canc elled via OM: Order cancelled - Patient discharged Performed By: #### L 100.0100, L500.2500 ####[facility] [address] [place], [address] GLU Normal 74-106 [facility] Comment on above: Result Comment: Canc elled via OM: Order cancelled - Patient discharged Performed By: #### L 100.0100, L500.2500 ####[facility] [address] [place], [address] Potassium Normal 3.5-5.1 [facility] Comment on above: Result Comment: Canc elled via OM: Order cancelled - Patient discharged Performed By: #### L 100.0100, L500.2500 ####[facility] [address] [place], [address] Basic Metabolic Profile (BMP) Normal 136-145 [facility] Comment on above: Result Comment: Canc elled via OM: Order cancelled - Patient discharged Performed By: #### L 100.0100, L500.2500 ####[facility] [address] [place], [address] CBC W/Diff, Automatedon 03-0 2-2024 Absolute Neut Normal 2.0-7.7 [facility] Comment on above: Result Comment: Canc elled via OM: Order cancelled - Patient discharged Performed By: #### L 100.0100, L500.2500 ####[facility] [address] [place], [address] HCT Normal 37-47 [facility] Comment on above: Result Comment: Canc elled via OM: Order cancelled - Patient discharged Performed By: #### L 100.0100, L500.2500 ####[facility] [address] [place], [address] HGB Normal 12.0-15.0 [facility] Comment on above: Result Comment: Canc elled via OM: Order cancelled - Patient discharged Performed By: #### L 100.0100, L500.2500 ####[facility] [address] [place], [address] MCH Normal 27.0-32.0 [facility] Comment on above: Result Comment: Canc elled via OM: Order cancelled - Patient discharged Performed By: #### L 100.0100, L500.2500 ####[facility] [address] [place], [address] MCHC Normal 32-36 [facility] Comment on above: Result Comment: Canc elled via OM: Order cancelled - Patient discharged Performed By: #### L 100.0100, L500.2500 ####[facility] [address] [place], [address] MCV Normal 81-99 [facility] Comment on above: Result Comment: Canc elled via OM: Order cancelled - Patient discharged Performed By: #### L 100.0100, L500.2500 ####[facility] [address] [place], [address] NEUT% Normal 47-70 [facility] Comment on above: Result Comment: Canc elled via OM: Order cancelled - Patient discharged Performed By: #### L 100.0100, L500.2500 ####[facility] [address] [place], [address] PLT Normal 150-450 [facility] Comment on above: Result Comment: Canc elled via OM: Order cancelled - Patient discharged Performed By: #### L 100.0100, L500.2500 ####[facility] [address] [place], [address] RBC Normal 4.2-5.4 [facility] Comment on above: Result Comment: Canc elled via OM: Order cancelled - Patient discharged Performed By: #### L 100.0100, L500.2500 ####[facility] [address] [place], [address] RDW CV Normal 11.6-14.6 [facility] Comment on above: Result Comment: Canc elled via OM: Order cancelled - Patient discharged Performed By: #### L 100.0100, L500.2500 ####[facility] [address] [place], [address] RDW SD Normal 35.1-43.9 [facility] Comment on above: Result Comment: Canc elled via OM: Order cancelled - Patient discharged Performed By: #### L 100.0100, L500.2500 ####[facility] [address] [place], [address] WBC Normal 4.4-11.0 [facility] Comment on above: Result Comment: Canc elled via OM: Order cancelled - Patient discharged Performed By: #### L 100.0100, L500.2500 ####[facility] [address] [place], [address] Basic Metabolic Profile (BMP )on 10-26-2024 BUN Normal 7-18 [facility] Comment on above: Result Comment: Canc elled via OM: Order cancelled - Patient discharged Performed By: #### L 100.0100, L500.2500 ####[facility] [address] [place], [address] BUN/CRE Normal 10-20 [facility] Comment on above: Result Comment: Canc elled via OM: Order cancelled - Patient discharged Performed By: #### L 100.0100, L500.2500 ####[facility] [address] [place], [address] CA,Total Normal 8.5-10.1 [facility] Comment on above: Result Comment: Canc elled via OM: Order cancelled - Patient discharged Performed By: #### L 100.0100, L500.2500 ####[facility] [address] [place], [address] CL Normal 98-107 [facility] Comment on above: Result Comment: Canc elled via OM: Order cancelled - Patient discharged Performed By: #### L 100.0100, L500.2500 ####[facility] [address] [place], [address] CO2 Normal 21.0-32.0 [facility] Comment on above: Result Comment: Canc elled via OM: Order cancelled - Patient discharged Performed By: #### L 100.0100, L500.2500 ####[facility] [address] [place], [address] CREAT,SERUM Normal 0.55-1.02 [facility] Comment on above: Result Comment: Canc elled via OM: Order cancelled - Patient discharged Performed By: #### L 100.0100, L500.2500 ####[facility] [address] [place], [address] EST GFR Normal >60 [facility] Comment on above: Result Comment: Canc elled via OM: Order cancelled - Patient discharged Performed By: #### L 100.0100, L500.2500 ####[facility] [address] [place], [address] EST GFR - AA Normal >60 [facility] Comment on above: Result Comment: Canc elled via OM: Order cancelled - Patient discharged Performed By: #### L 100.0100, L500.2500 ####[facility] [address] [place], [address] GAP Normal 5-15 [facility] Comment on above: Result Comment: Canc elled via OM: Order cancelled - Patient discharged Performed By: #### L 100.0100, L500.2500 ####[facility] [address] [place], [address] GLU Normal 74-106 [facility] Comment on above: Result Comment: Canc elled via OM: Order cancelled - Patient discharged Performed By: #### L 100.0100, L500.2500 ####[facility] [address] [place], [address] Potassium Normal 3.5-5.1 [facility] Comment on above: Result Comment: Canc elled via OM: Order cancelled - Patient discharged Performed By: #### L 100.0100, L500.2500 ####[facility] [address] [place], [address] Basic Metabolic Profile (BMP) Normal 136-145 [facility] Comment on above: Result Comment: Canc elled via OM: Order cancelled - Patient discharged Performed By: #### L 100.0100, L500.2500 ####[facility] [address] [place], [address] CBC W/Diff, Automatedon 03-0 Absolute Neut Normal 2.0-7.7 [facility] Comment on above: Result Comment: Canc elled via OM: Order cancelled - Patient discharged Performed By: #### L 100.0100, L500.2500 ####[facility] [address] [place], [address] HCT Normal 37-47 [facility] Comment on above: Result Comment: Canc elled via OM: Order cancelled - Patient discharged Performed By: #### L 100.0100, L500.2500 ####[facility] [address] [place], [address] HGB Normal 12.0-15.0 [facility] Comment on above: Result Comment: Canc elled via OM: Order cancelled - Patient discharged Performed By: #### L 100.0100, L500.2500 ####[facility] [address] [place], [address] MCH Normal 27.0-32.0 [facility] Comment on above: Result Comment: Canc elled via OM: Order cancelled - Patient discharged Performed By: #### L 100.0100, L500.2500 ####[facility] [address] [place], [address] MCHC Normal 32-36 [facility] Comment on above: Result Comment: Canc elled via OM: Order cancelled - Patient discharged Performed By: #### L 100.0100, L500.2500 ####[facility] [address] [place], [address] MCV Normal 81-99 [facility] Comment on above: Result Comment: Canc elled via OM: Order cancelled - Patient discharged Performed By: #### L 100.0100, L500.2500 ####[facility] [address] [place], [address] NEUT% Normal 47-70 [facility] Comment on above: Result Comment: Canc elled via OM: Order cancelled - Patient discharged Performed By: #### L 100.0100, L500.2500 ####[facility] [address] [place], [address] PLT Normal 150-450 [facility] Comment on above: Result Comment: Canc elled via OM: Order cancelled - Patient discharged Performed By: #### L 100.0100, L500.2500 ####[facility] [address] [place], [address] RBC Normal 4.2-5.4 [facility] Comment on above: Result Comment: Canc elled via OM: Order cancelled - Patient discharged Performed By: #### L 100.0100, L500.2500 ####[facility] [address] [place], [address] RDW CV Normal 11.6-14.6 [facility] Comment on above: Result Comment: Canc elled via OM: Order cancelled - Patient discharged Performed By: #### L 100.0100, L500.2500 ####[facility] [address] [place], [address] RDW SD Normal 35.1-43.9 [facility] Comment on above: Result Comment: Canc elled via OM: Order cancelled - Patient discharged Performed By: #### L 100.0100, L500.2500 ####[facility] [address] [place], [address] WBC Normal 4.4-11.0 [facility] Comment on above: Result Comment: Canc elled via OM: Order cancelled - Patient discharged Performed By: #### L 100.0100, L500.2500 ####[facility] [address] [place], [address] Basic Metabolic Profile (BMP )on 10-25-2024 BUN Normal 7-18 [facility] Comment on above: Result Comment: Canc elled via OM: Order cancelled - Patient discharged Performed By: #### L 100.0100, L500.2500 ####[facility] [address] [place], [address] BUN/CRE Normal 10-20 [facility] Comment on above: Result Comment: Canc elled via OM: Order cancelled - Patient discharged Performed By: #### L 100.0100, L500.2500 ####[facility] [address] [place], [address] CA,Total Normal 8.5-10.1 [facility] Comment on above: Result Comment: Canc elled via OM: Order cancelled - Patient discharged Performed By: #### L 100.0100, L500.2500 ####[facility] [address] [place], [address] CL Normal 98-107 [facility] Comment on above: Result Comment: Canc elled via OM: Order cancelled - Patient discharged Performed By: #### L 100.0100, L500.2500 ####[facility] [address] [place], [address] CO2 Normal 21.0-32.0 [facility] Comment on above: Result Comment: Canc elled via OM: Order cancelled - Patient discharged Performed By: #### L 100.0100, L500.2500 ####[facility] [address] [place], [address] CREAT,SERUM Normal 0.55-1.02 [facility] Comment on above: Result Comment: Canc elled via OM: Order cancelled - Patient discharged Performed By: #### L 100.0100, L500.2500 ####[facility] [address] [place], [address] EST GFR Normal >60 [facility] Comment on above: Result Comment: Canc elled via OM: Order cancelled - Patient discharged Performed By: #### L 100.0100, L500.2500 ####[facility] [address] [place], [address] EST GFR - AA Normal >60 [facility] Comment on above: Result Comment: Canc elled via OM: Order cancelled - Patient discharged Performed By: #### L 100.0100, L500.2500 ####[facility] [address] [place], [address] GAP Normal 5-15 [facility] Comment on above: Result Comment: Canc elled via OM: Order cancelled - Patient discharged Performed By: #### L 100.0100, L500.2500 ####[facility] [address] [place], [address] GLU Normal 74-106 [facility] Comment on above: Result Comment: Canc elled via OM: Order cancelled - Patient discharged Performed By: #### L 100.0100, L500.2500 ####[facility] [address] [place], [address] Potassium Normal 3.5-5.1 [facility] Comment on above: Result Comment: Canc elled via OM: Order cancelled - Patient discharged Performed By: #### L 100.0100, L500.2500 ####[facility] [address] [place], [address] Basic Metabolic Profile (BMP) Normal 136-145 [facility] Comment on above: Result Comment: Canc elled via OM: Order cancelled - Patient discharged Performed By: #### L 100.0100, L500.2500 ####[facility] [address] [place], [address] CBC W/Diff, Automatedon 02- Absolute Neut Normal 2.0-7.7 [facility] Comment on above: Result Comment: Canc elled via OM: Order cancelled - Patient discharged Performed By: #### L 100.0100, L500.2500 ####[facility] [address] [place], [address] HCT Normal 37-47 [facility] Comment on above: Result Comment: Canc elled via OM: Order cancelled - Patient discharged Performed By: #### L 100.0100, L500.2500 ####[facility] [address] [place], [address] HGB Normal 12.0-15.0 [facility] Comment on above: Result Comment: Canc elled via OM: Order cancelled - Patient discharged Performed By: #### L 100.0100, L500.2500 ####[facility] [address] [place], [address] MCH Normal 27.0-32.0 [facility] Comment on above: Result Comment: Canc elled via OM: Order cancelled - Patient discharged Performed By: #### L 100.0100, L500.2500 ####[facility] [address] [place], [address] MCHC Normal 32-36 [facility] Comment on above: Result Comment: Canc elled via OM: Order cancelled - Patient discharged Performed By: #### L 100.0100, L500.2500 ####[facility] [address] [place], [address] MCV Normal 81-99 [facility] Comment on above: Result Comment: Canc elled via OM: Order cancelled - Patient discharged Performed By: #### L 100.0100, L500.2500 ####[facility] [address] [place], [address] NEUT% Normal 47-70 [facility] Comment on above: Result Comment: Canc elled via OM: Order cancelled - Patient discharged Performed By: #### L 100.0100, L500.2500 ####[facility] [address] [place], [address] PLT Normal 150-450 [facility] Comment on above: Result Comment: Canc elled via OM: Order cancelled - Patient discharged Performed By: #### L 100.0100, L500.2500 ####[facility] [address] [place], [address] RBC Normal 4.2-5.4 [facility] Comment on above: Result Comment: Canc elled via OM: Order cancelled - Patient discharged Performed By: #### L 100.0100, L500.2500 ####[facility] [address] [place], [address] RDW CV Normal 11.6-14.6 [facility] Comment on above: Result Comment: Canc elled via OM: Order cancelled - Patient discharged Performed By: #### L 100.0100, L500.2500 ####[facility] [address] [place], [address] RDW SD Normal 35.1-43.9 [facility] Comment on above: Result Comment: Canc elled via OM: Order cancelled - Patient discharged Performed By: #### L 100.0100, L500.2500 ####[facility] [address] [place], [address] WBC Normal 4.4-11.0 [facility] Comment on above: Result Comment: Canc elled via OM: Order cancelled - Patient discharged Performed By: #### L 100.0100, L500.2500 ####[facility] [address] [place], [address] Basic Metabolic Profile (BMP )on 10-24-2024 BUN Normal 7-18 [facility] Comment on above: Result Comment: Canc elled via OM: Order cancelled - Patient discharged Performed By: #### L 500.2500, L100.0100 ####[facility] [address] [place], [address] BUN/CRE Normal 10-20 [facility] Comment on above: Result Comment: Canc elled via OM: Order cancelled - Patient discharged Performed By: #### L 500.2500, L100.0100 ####[facility] [address] [place], [address] CA,Total Normal 8.5-10.1 [facility] Comment on above: Result Comment: Canc elled via OM: Order cancelled - Patient discharged Performed By: #### L 500.2500, L100.0100 ####[facility] [address] [place], [address] CL Normal 98-107 [facility] Comment on above: Result Comment: Canc elled via OM: Order cancelled - Patient discharged Performed By: #### L 500.2500, L100.0100 ####[facility] [address] [place], [address] CO2 Normal 21.0-32.0 [facility] Comment on above: Result Comment: Canc elled via OM: Order cancelled - Patient discharged Performed By: #### L 500.2500, L100.0100 ####[facility] [address] [place], [address] CREAT,SERUM Normal 0.55-1.02 [facility] Comment on above: Result Comment: Canc elled via OM: Order cancelled - Patient discharged Performed By: #### L 500.2500, L100.0100 ####[facility] [address] [place], [address] EST GFR Normal >60 [facility] Comment on above: Result Comment: Canc elled via OM: Order cancelled - Patient discharged Performed By: #### L 500.2500, L100.0100 ####[facility] [address] [place], [address] EST GFR - AA Normal >60 [facility] Comment on above: Result Comment: Canc elled via OM: Order cancelled - Patient discharged Performed By: #### L 500.2500, L100.0100 ####[facility] [address] [place], [address] GAP Normal 5-15 [facility] Comment on above: Result Comment: Canc elled via OM: Order cancelled - Patient discharged Performed By: #### L 500.2500, L100.0100 ####[facility] [address] [place], [address] GLU Normal 74-106 [facility] Comment on above: Result Comment: Canc elled via OM: Order cancelled - Patient discharged Performed By: #### L 500.2500, L100.0100 ####[facility] [address] [place], [address] Potassium Normal 3.5-5.1 [facility] Comment on above: Result Comment: Canc elled via OM: Order cancelled - Patient discharged Performed By: #### L 500.2500, L100.0100 ####[facility] [address] [place], [address] Basic Metabolic Profile (BMP) Normal 136-145 [facility] Comment on above: Result Comment: Canc elled via OM: Order cancelled - Patient discharged Performed By: #### L 500.2500, L100.0100 ####[facility] [address] [place], [address] CBC W/Diff, Automatedon 02-2 Absolute Neut Normal 2.0-7.7 [facility] Comment on above: Result Comment: Canc elled via OM: Order cancelled - Patient discharged Performed By: #### L 500.2500, L100.0100 ####[facility] [address] [place], [address] HCT Normal 37-47 [facility] Comment on above: Result Comment: Canc elled via OM: Order cancelled - Patient discharged Performed By: #### L 500.2500, L100.0100 ####[facility] [address] [place], [address] HGB Normal 12.0-15.0 [facility] Comment on above: Result Comment: Canc elled via OM: Order cancelled - Patient discharged Performed By: #### L 500.2500, L100.0100 ####[facility] [address] [place], [address] MCH Normal 27.0-32.0 [facility] Comment on above: Result Comment: Canc elled via OM: Order cancelled - Patient discharged Performed By: #### L 500.2500, L100.0100 ####[facility] [address] [place], [address] MCHC Normal 32-36 [facility] Comment on above: Result Comment: Canc elled via OM: Order cancelled - Patient discharged Performed By: #### L 500.2500, L100.0100 ####[facility] [address] [place], [address] MCV Normal 81-99 [facility] Comment on above: Result Comment: Canc elled via OM: Order cancelled - Patient discharged Performed By: #### L 500.2500, L100.0100 ####[facility] [address] [place], [address] NEUT% Normal 47-70 [facility] Comment on above: Result Comment: Canc elled via OM: Order cancelled - Patient discharged Performed By: #### L 500.2500, L100.0100 ####[facility] [address] [place], [address] PLT Normal 150-450 [facility] Comment on above: Result Comment: Canc elled via OM: Order cancelled - Patient discharged Performed By: #### L 500.2500, L100.0100 ####[facility] [address] [place], [address] RBC Normal 4.2-5.4 [facility] Comment on above: Result Comment: Canc elled via OM: Order cancelled - Patient discharged Performed By: #### L 500.2500, L100.0100 ####[facility] [address] [place], [address] RDW CV Normal 11.6-14.6 [facility] Comment on above: Result Comment: Canc elled via OM: Order cancelled - Patient discharged Performed By: #### L 500.2500, L100.0100 ####[facility] [address] [place], [address] RDW SD Normal 35.1-43.9 [facility] Comment on above: Result Comment: Canc elled via OM: Order cancelled - Patient discharged Performed By: #### L 500.2500, L100.0100 ####[facility] [address] [place], [address] WBC Normal 4.4-11.0 [facility] Comment on above: Result Comment: Canc elled via OM: Order cancelled - Patient discharged Performed By: #### L 500.2500, L100.0100 ####[facility] [address] [place], [address] Basic Metabolic Profile (BMP )on 10-23-2024 BUN Normal 7-18 [facility] Comment on above: Result Comment: Canc elled via OM: Order cancelled - Patient discharged Performed By: #### L 500.2500, L100.0100 ####[facility] [address] [place], [address] BUN/CRE Normal 10-20 [facility] Comment on above: Result Comment: Canc elled via OM: Order cancelled - Patient discharged Performed By: #### L 500.2500, L100.0100 ####[facility] [address] [place], [address] CA,Total Normal 8.5-10.1 [facility] Comment on above: Result Comment: Canc elled via OM: Order cancelled - Patient discharged Performed By: #### L 500.2500, L100.0100 ####[facility] [address] [place], [address] CL Normal 98-107 [facility] Comment on above: Result Comment: Canc elled via OM: Order cancelled - Patient discharged Performed By: #### L 500.2500, L100.0100 ####[facility] [address] [place], [address] CO2 Normal 21.0-32.0 [facility] Comment on above: Result Comment: Canc elled via OM: Order cancelled - Patient discharged Performed By: #### L 500.2500, L100.0100 ####[facility] [address] [place], [address] CREAT,SERUM Normal 0.55-1.02 [facility] Comment on above: Result Comment: Canc elled via OM: Order cancelled - Patient discharged Performed By: #### L 500.2500, L100.0100 ####[facility] [address] [place], [address] EST GFR Normal >60 [facility] Comment on above: Result Comment: Canc elled via OM: Order cancelled - Patient discharged Performed By: #### L 500.2500, L100.0100 ####[facility] [address] [place], [address] EST GFR - AA Normal >60 [facility] Comment on above: Result Comment: Canc elled via OM: Order cancelled - Patient discharged Performed By: #### L 500.2500, L100.0100 ####[facility] [address] [place], [address] GAP Normal 5-15 [facility] Comment on above: Result Comment: Canc elled via OM: Order cancelled - Patient discharged Performed By: #### L 500.2500, L100.0100 ####[facility] [address] [place], [address] GLU Normal 74-106 [facility] Comment on above: Result Comment: Canc elled via OM: Order cancelled - Patient discharged Performed By: #### L 500.2500, L100.0100 ####[facility] [address] [place], [address] Potassium Normal 3.5-5.1 [facility] Comment on above: Result Comment: Canc elled via OM: Order cancelled - Patient discharged Performed By: #### L 500.2500, L100.0100 ####[facility] [address] [place], [address] Basic Metabolic Profile (BMP) Normal 136-145 [facility] Comment on above: Result Comment: Canc elled via OM: Order cancelled - Patient discharged Performed By: #### L 500.2500, L100.0100 ####[facility] [address] [place], [address] CBC W/Diff, Automatedon 02-2 Absolute Neut Normal 2.0-7.7 [facility] Comment on above: Result Comment: Canc elled via OM: Order cancelled - Patient discharged Performed By: #### L 500.2500, L100.0100 ####[facility] [address] [place], [address] HCT Normal 37-47 [facility] Comment on above: Result Comment: Canc elled via OM: Order cancelled - Patient discharged Performed By: #### L 500.2500, L100.0100 ####[facility] [address] [place], [address] HGB Normal 12.0-15.0 [facility] Comment on above: Result Comment: Canc elled via OM: Order cancelled - Patient discharged Performed By: #### L 500.2500, L100.0100 ####[facility] [address] [place], [address] MCH Normal 27.0-32.0 [facility] Comment on above: Result Comment: Canc elled via OM: Order cancelled - Patient discharged Performed By: #### L 500.2500, L100.0100 ####[facility] [address] [place], [address] MCHC Normal 32-36 [facility] Comment on above: Result Comment: Canc elled via OM: Order cancelled - Patient discharged Performed By: #### L 500.2500, L100.0100 ####[facility] [address] [place], [address] MCV Normal 81-99 [facility] Comment on above: Result Comment: Canc elled via OM: Order cancelled - Patient discharged Performed By: #### L 500.2500, L100.0100 ####[facility] [address] [place], [address] NEUT% Normal 47-70 [facility] Comment on above: Result Comment: Canc elled via OM: Order cancelled - Patient discharged Performed By: #### L 500.2500, L100.0100 ####[facility] [address] [place], [address] PLT Normal 150-450 [facility] Comment on above: Result Comment: Canc elled via OM: Order cancelled - Patient discharged Performed By: #### L 500.2500, L100.0100 ####[facility] [address] [place], [address] RBC Normal 4.2-5.4 [facility] Comment on above: Result Comment: Canc elled via OM: Order cancelled - Patient discharged Performed By: #### L 500.2500, L100.0100 ####[facility] [address] [place], [address] RDW CV Normal 11.6-14.6 [facility] Comment on above: Result Comment: Canc elled via OM: Order cancelled - Patient discharged Performed By: #### L 500.2500, L100.0100 ####[facility] [address] [place], [address] RDW SD Normal 35.1-43.9 [facility] Comment on above: Result Comment: Canc elled via OM: Order cancelled - Patient discharged Performed By: #### L 500.2500, L100.0100 ####[facility] [address] [place], [address] WBC Normal 4.4-11.0 [facility] Comment on above: Result Comment: Canc elled via OM: Order cancelled - Patient discharged Performed By: #### L 500.2500, L100.0100 ####[facility] [address] [place], [address] Basic Metabolic Profile (BMP )on 10-22-2024 BUN Normal 7-18 [facility] Comment on above: Result Comment: Canc elled via OM: Order cancelled - Patient discharged Performed By: #### L 500.2500, L100.0100 ####[facility] [address] [place], [address] BUN/CRE Normal 10-20 [facility] Comment on above: Result Comment: Canc elled via OM: Order cancelled - Patient discharged Performed By: #### L 500.2500, L100.0100 ####[facility] [address] [place], [address] CA,Total Normal 8.5-10.1 [facility] Comment on above: Result Comment: Canc elled via OM: Order cancelled - Patient discharged Performed By: #### L 500.2500, L100.0100 ####[facility] [address] [place], [address] CL Normal 98-107 [facility] Comment on above: Result Comment: Canc elled via OM: Order cancelled - Patient discharged Performed By: #### L 500.2500, L100.0100 ####[facility] [address] [place], [address] CO2 Normal 21.0-32.0 [facility] Comment on above: Result Comment: Canc elled via OM: Order cancelled - Patient discharged Performed By: #### L 500.2500, L100.0100 ####[facility] [address] [place], [address] CREAT,SERUM Normal 0.55-1.02 [facility] Comment on above: Result Comment: Canc elled via OM: Order cancelled - Patient discharged Performed By: #### L 500.2500, L100.0100 ####[facility] [address] [place], [address] EST GFR Normal >60 [facility] Comment on above: Result Comment: Canc elled via OM: Order cancelled - Patient discharged Performed By: #### L 500.2500, L100.0100 ####[facility] [address] [place], [address] EST GFR - AA Normal >60 [facility] Comment on above: Result Comment: Canc elled via OM: Order cancelled - Patient discharged Performed By: #### L 500.2500, L100.0100 ####[facility] [address] [place], [address] GAP Normal 5-15 [facility] Comment on above: Result Comment: Canc elled via OM: Order cancelled - Patient discharged Performed By: #### L 500.2500, L100.0100 ####[facility] [address] [place], [address] GLU Normal 74-106 [facility] Comment on above: Result Comment: Canc elled via OM: Order cancelled - Patient discharged Performed By: #### L 500.2500, L100.0100 ####[facility] [address] [place], [address] Potassium Normal 3.5-5.1 [facility] Comment on above: Result Comment: Canc elled via OM: Order cancelled - Patient discharged Performed By: #### L 500.2500, L100.0100 ####[facility] [address] [place], [address] Basic Metabolic Profile (BMP) Normal 136-145 [facility] Comment on above: Result Comment: Canc elled via OM: Order cancelled - Patient discharged Performed By: #### L 500.2500, L100.0100 ####[facility] [address] [place], [address] CBC W/Diff, Automatedon 02-2 Absolute Neut Normal 2.0-7.7 [facility] Comment on above: Result Comment: Canc elled via OM: Order cancelled - Patient discharged Performed By: #### L 500.2500, L100.0100 ####[facility] [address] [place], [address] HCT Normal 37-47 [facility] Comment on above: Result Comment: Canc elled via OM: Order cancelled - Patient discharged Performed By: #### L 500.2500, L100.0100 ####[facility] [address] [place], [address] HGB Normal 12.0-15.0 [facility] Comment on above: Result Comment: Canc elled via OM: Order cancelled - Patient discharged Performed By: #### L 500.2500, L100.0100 ####[facility] [address] [place], [address] MCH Normal 27.0-32.0 [facility] Comment on above: Result Comment: Canc elled via OM: Order cancelled - Patient discharged Performed By: #### L 500.2500, L100.0100 ####[facility] [address] [place], [address] MCHC Normal 32-36 [facility] Comment on above: Result Comment: Canc elled via OM: Order cancelled - Patient discharged Performed By: #### L 500.2500, L100.0100 ####[facility] [address] [place], [address] MCV Normal 81-99 [facility] Comment on above: Result Comment: Canc elled via OM: Order cancelled - Patient discharged Performed By: #### L 500.2500, L100.0100 ####[facility] [address] [place], [address] NEUT% Normal 47-70 [facility] Comment on above: Result Comment: Canc elled via OM: Order cancelled - Patient discharged Performed By: #### L 500.2500, L100.0100 ####[facility] [address] [place], [address] PLT Normal 150-450 [facility] Comment on above: Result Comment: Canc elled via OM: Order cancelled - Patient discharged Performed By: #### L 500.2500, L100.0100 ####[facility] [address] [place], [address] RBC Normal 4.2-5.4 [facility] Comment on above: Result Comment: Canc elled via OM: Order cancelled - Patient discharged Performed By: #### L 500.2500, L100.0100 ####[facility] [address] [place], [address] RDW CV Normal 11.6-14.6 [facility] Comment on above: Result Comment: Canc elled via OM: Order cancelled - Patient discharged Performed By: #### L 500.2500, L100.0100 ####[facility] [address] [place], [address] RDW SD Normal 35.1-43.9 [facility] Comment on above: Result Comment: Canc elled via OM: Order cancelled - Patient discharged Performed By: #### L 500.2500, L100.0100 ####[facility] [address] [place], [address] WBC Normal 4.4-11.0 [facility] Comment on above: Result Comment: Canc elled via OM: Order cancelled - Patient discharged Performed By: #### L 500.2500, L100.0100 ####[facility] [address] [place], [address] Basic Metabolic Profile (BMP )on 10-21-2024 BUN/CRE 17.1 RATIO Normal 10-20 [facility] Comment on above: Performed By: #### L 500.2500, L100.0100 ####[facility] [address] [place], [address] CA,Total 9.4 mg/dL Normal 8.5-10.1 [facility] Comment on above: Performed By: #### L 500.2500, L100.0100 ####[facility] [address] [place], [address] Chloride [Moles/Vol] 97 mmol/L Low 98-107 [facility] Comment on above: Performed By: #### L 500.2500, L100.0100 ####[facility] [address] [place], [address] CO2 [Moles/Vol] 16.0 mmol/L Low 21.0-32.0 [facility] Comment on above: Performed By: #### L 500.2500, L100.0100 ####[facility] [address] [place], [address] Creatinine [Mass/Vol] 0.88 mg/dL Normal 0.55-1.02 [facility] Comment on above: Result Comment: The validity of the calculated GFR GFRAA in patients over70 years has not been determined. Clinical correlation isessential. Performed By: #### L 500.2500, L100.0100 ####[facility] [address] [place], [address] ECRCL 97.69 ml/min Normal [facility] Comment on above: Performed By: #### L 500.2500, L100.0100 ####[facility] [address] [place], [address] EST GFR - AA 97 mL/min Normal >60 [facility] Comment on above: Result Comment: Afri can Cuban GFR Calc Performed By: #### L 500.2500, L100.0100 ####[facility] [address] [place], [address] GAP 15 Normal 5-15 [facility] Comment on above: Performed By: #### L 500.2500, L100.0100 ####[facility] [address] [place], [address] GFR/1.73 sq M.predicted among non-blacks MDRD (S/P/Bld) [Vol rate/Area] 80 mL/min/{1.73_m2} Normal >60 [facility] Comment on above: Result Comment: Non- GFR Calc Performed By: #### L 500.2500, L100.0100 ####[facility] [address] [place], [address] Glucose [Mass/Vol] 546 mg/dL Invalid Interpretation Code 74-106 [facility] Comment on above: Result Comment: Crit ical Result(s) Called at: 05:07:31 10/21/2024 by:[facility] Results read back by same.Glucose result greater than or equal to 200 mg/dLsuggests DIABETES MELLITUS per A.D.A. criteria. Performed By: #### L 500.2500, L100.0100 ####[facility] [address] [place], [address] Potassium [Moles/Vol] 5.3 mmol/L High 3.5-5.1 [facility] Comment on above: Performed By: #### L 500.2500, L100.0100 ####[facility] [address] [place], [address] Sodium [Moles/Vol] 128 mmol/L Low 136-145 [facility] Comment on above: Performed By: #### L 500.2500, L100.0100 ####[facility] [address] [place], [address] Urea nitrogen [Mass/Vol] 15 mg/dL Normal 7-18 [facility] Comment on above: Performed By: #### L 500.2500, L100.0100 ####[facility] [address] [place], [address] Bedside Glucoseon 10-21-2024 FINGERSTICK GLU 296 mg/dL High [address] [place] [address] Comment on above: Result Comment: EDGAR GEMENT OF PATIENT CARE PER NURSING PROTOCOL Performed By: #### L 501.080 ####[facility] [address] [place], [address] FINGERSTICK GLU 187 mg/dL High [address] [place] [address] Comment on above: Result Comment: EDGAR GEMENT OF PATIENT CARE PER NURSING PROTOCOL Performed By: #### L 501.080 ####[facility] [address] [place], [address] FINGERSTICK GLU 408 mg/dL High [address] [place] [address] Comment on above: Result Comment: EDGAR GEMENT OF PATIENT CARE PER NURSING PROTOCOL Performed By: #### L 501.080 ####[facility] [address] [place], [address] FINGERSTICK GLU 481 mg/dL Invalid Interpretation Code -[address] [place] [address] Comment on above: Result Comment: Repe at TestMANAGEMENT OF PATIENT CARE PER NURSING PROTOCOL Performed By: #### L 501.080 ####[facility] [address] [place], [address] CBC W/Diff, Automatedon 09-29 Absolute Lymph 2.01 X10 3/uL Normal 0.83-4.51 [facility] Comment on above: Performed By: #### L 500.2500, L100.0100 ####[facility] [address] [place], [address] Absolute Neut 13.3 X10 3/uL High 2.0-7.7 [facility] Comment on above: Performed By: #### L 500.2500, L100.0100 ####[facility] [address] [place], [address] Basophils/100 WBC (Bld) 0.5 % Normal 0-1 [facility] Comment on above: Performed By: #### L 500.2500, L100.0100 ####[facility] [address] [place], [address] Eosinophils/100 WBC (Bld) 1.8 % Normal 0-5 [facility] Comment on above: Performed By: #### L 500.2500, L100.0100 ####[facility] [address] [place], [address] Erythrocyte distribution width (RBC) [Ratio] 12.9 % Normal 11.6-14.6 [facility] Comment on above: Performed By: #### L 500.2500, L100.0100 ####[facility] [address] [place], [address] Hematocrit (Bld) [Volume fraction] 44.3 % Normal 37-47 [facility] Comment on above: Performed By: #### L 500.2500, L100.0100 ####[facility] [address] [place], [address] Hemoglobin (Bld) [Mass/Vol] 14.3 g/dL Normal 12.0-15.0 [facility] Comment on above: Performed By: #### L 500.2500, L100.0100 ####[facility] [address] [place], [address] IG% 0.800 Normal 0.0-0.9 [facility] Comment on above: Result Comment: IG% - Immature Granulocytes (promyelocytes, myelocytes andmetamyelocytes) > 1% indicates that a LEFT SHIFT is Present. Performed By: #### L 500.2500, L100.0100 ####[facility] [address] [place], [address] Lymphocytes/100 WBC (Bld) 12.2 % Low 19-41 [facility] Comment on above: Performed By: #### L 500.2500, L100.0100 ####[facility] [address] [place], [address] MCH (RBC) [Entitic mass] 28.8 pg Normal 27.0-32.0 [facility] Comment on above: Performed By: #### L 500.2500, L100.0100 ####[facility] [address] [place], [address] MCHC (RBC) [Mass/Vol] 32.3 g/dL Normal 32-36 [facility] Comment on above: Performed By: #### L 500.2500, L100.0100 ####[facility] [address] [place], [address] MCV (RBC) [Entitic vol] 89.1 fL Normal 81-99 [facility] Comment on above: Performed By: #### L 500.2500, L100.0100 ####[facility] [address] [place], [address] Monocytes/100 WBC (Bld) 4.3 % Normal 0-10 [facility] Comment on above: Performed By: #### L 500.2500, L100.0100 ####[facility] [address] [place], [address] Neutrophils/100 WBC (Bld) 80.4 % High 47-70 [facility] Comment on above: Performed By: #### L 500.2500, L100.0100 ####[facility] [address] [place], [address] Nucleated RBC (Bld) [#/Vol] 0 10*3/uL Normal 0-5 [facility] Comment on above: Performed By: #### L 500.2500, L100.0100 ####[facility] [address] [place], [address] Platelet mean volume (Bld) [Entitic vol] 12.6 fL High 6.2-12.0 [facility] Comment on above: Performed By: #### L 500.2500, L100.0100 ####[facility] [address] [place], [address] Platelets (Bld) [#/Vol] 192 10*3/uL Normal 150-450 [facility] Comment on above: Performed By: #### L 500.2500, L100.0100 ####[facility] [address] [place], [address] RBC (Bld) [#/Vol] 4.97 10*6/uL Normal 4.2-5.4 [facility] Comment on above: Performed By: #### L 500.2500, L100.0100 ####[facility] [address] [place], [address] RDW SD 41.7 fl Normal 35.1-43.9 [facility] Comment on above: Performed By: #### L 500.2500, L100.0100 ####[facility] [address] [place], [address] WBC (Bld) [#/Vol] 16.5 10*3/uL High 4.4-11.0 [facility] Comment on above: Performed By: #### L 500.2500, L100.0100 ####[facility] [address] [place], [address] Discharge Instructionon -2 Discharge Instruction Normal [facility] Basic Metabolic Profile (BMP )on 10-20-2024 BUN/CRE 13.2 RATIO Normal 10-20 [facility] Comment on above: Performed By: #### L 500.2500, L100.0100 ####[facility] [address] [place], [address] CA,Total 8.8 mg/dL Normal 8.5-10.1 [facility] Comment on above: Performed By: #### L 500.2500, L100.0100 ####[facility] [address] [place], [address] Chloride [Moles/Vol] 104 mmol/L Normal 98-107 [facility] Comment on above: Performed By: #### L 500.2500, L100.0100 ####[facility] [address] [place], [address] CO2 [Moles/Vol] 22.0 mmol/L Normal 21.0-32.0 [facility] Comment on above: Performed By: #### L 500.2500, L100.0100 ####[facility] [address] [place], [address] Creatinine [Mass/Vol] 0.61 mg/dL Normal 0.55-1.02 [facility] Comment on above: Result Comment: The validity of the calculated GFR GFRAA in patients over70 years has not been determined. Clinical correlation isessential. Performed By: #### L 500.2500, L100.0100 ####[facility] [address] [place], [address] ECRCL 140.93 ml/min Normal [facility] Comment on above: Performed By: #### L 500.2500, L100.0100 ####[facility] [address] [place], [address] EST GFR - AA 149 mL/min Normal >60 [facility] Comment on above: Result Comment: Afri can Cuban GFR Calc Performed By: #### L 500.2500, L100.0100 ####[facility] [address] [place], [address] GAP 8 Normal 5-15 [facility] Comment on above: Performed By: #### L 500.2500, L100.0100 ####[facility] [address] [place], [address] GFR/1.73 sq M.predicted among non-blacks MDRD (S/P/Bld) [Vol rate/Area] 123 mL/min/{1.73_m2} Normal >60 [facility] Comment on above: Result Comment: Non- GFR Calc Performed By: #### L 500.2500, L100.0100 ####[facility] [address] [place], [address] Glucose [Mass/Vol] 222 mg/dL High 74-106 [facility] Comment on above: Result Comment: Gluc ose result greater than or equal to 200 mg/dLsuggests DIABETES MELLITUS per A.D.A. criteria. Performed By: #### L 500.2500, L100.0100 ####[facility] [address] [place], [address] Potassium [Moles/Vol] 4.2 mmol/L Normal 3.5-5.1 [facility] Comment on above: Performed By: #### L 500.2500, L100.0100 ####[facility] [address] [place], [address] Sodium [Moles/Vol] 134 mmol/L Low 136-145 [facility] Comment on above: Performed By: #### L 500.2500, L100.0100 ####[facility] [address] [place], [address] Urea nitrogen [Mass/Vol] 8 mg/dL Normal 7-18 [facility] Comment on above: Performed By: #### L 500.2500, L100.0100 ####[facility] [address] [place], [address] Bedside Glucoseon 10-20-2024 FINGERSTICK GLU 94 mg/dL Normal 74-106 [facility] Comment on above: Result Comment: EDGAR HUNG OF PATIENT CARE PER NURSING PROTOCOL Performed By: #### L 501.080 ####[facility] [address] [place], [address] FINGERSTICK GLU 337 mg/dL High 74-106 [facility] Comment on above: Result Comment: EDGAR GEMENT OF PATIENT CARE PER NURSING PROTOCOL Performed By: #### L 501.080 ####[facility] [address] [place], [address] FINGERSTICK GLU 441 mg/dL High 74-106 [facility] Comment on above: Result Comment: EDGAR GEMENT OF PATIENT CARE PER NURSING PROTOCOL Performed By: #### L 501.080 ####[facility] [address] [place], [address] FINGERSTICK GLU 200 mg/dL High [address] [place] [address] Comment on above: Result Comment: EDGAR GEMENT OF PATIENT CARE PER NURSING PROTOCOL Performed By: #### L 501.080 ####[facility] [address] [place], [address] FINGERSTICK GLU 90 mg/dL Normal -106 [facility] Comment on above: Result Comment: EDGAR GEMENT OF PATIENT CARE PER NURSING PROTOCOL Performed By: #### L 501.080 ####[facility] [address] [place], [address] FINGERSTICK GLU 182 mg/dL High 74-106 [facility] Comment on above: Result Comment: EDGAR GEMENT OF PATIENT CARE PER NURSING PROTOCOL Performed By: #### L 501.080 ####[facility] [address] [place], [address] FINGERSTICK GLU 303 mg/dL High [facility]106 [facility] Comment on above: Result Comment: EDGAR GEMENT OF PATIENT CARE PER NURSING PROTOCOL Performed By: #### L 501.080 ####[facility] [address] [place], [address] CBC W/Diff, Automatedon 02 Absolute Lymph 2.82 X10 3/uL Normal 0.83-4.51 [facility] Comment on above: Performed By: #### L 500.2500, L100.0100 ####[facility] [address] [place], [address] Absolute Neut 6.3 X10 3/uL Normal 2.0-7.7 [facility] Comment on above: Performed By: #### L 500.2500, L100.0100 ####[facility] [address] [place], [address] Basophils/100 WBC (Bld) 0.4 % Normal 0-1 [facility] Comment on above: Performed By: #### L 500.2500, L100.0100 ####[facility] [address] [place], [address] Eosinophils/100 WBC (Bld) 3.1 % Normal 0-5 [facility] Comment on above: Performed By: #### L 500.2500, L100.0100 ####[facility] [address] [place], [address] Erythrocyte distribution width (RBC) [Ratio] 13.0 % Normal 11.6-14.6 [facility] Comment on above: Performed By: #### L 500.2500, L100.0100 ####[facility] [address] [place], [address] Hematocrit (Bld) [Volume fraction] 40.2 % Normal 37-47 [facility] Comment on above: Performed By: #### L 500.2500, L100.0100 ####[facility] [address] [place], [address] Hemoglobin (Bld) [Mass/Vol] 13.0 g/dL Normal 12.0-15.0 [facility] Comment on above: Performed By: #### L 500.2500, L100.0100 ####[facility] [address] [place], [address] IG% 0.700 Normal 0.0-0.9 [facility] Comment on above: Result Comment: IG% - Immature Granulocytes (promyelocytes, myelocytes andmetamyelocytes) > 1% indicates that a LEFT SHIFT is Present. Performed By: #### L 500.2500, L100.0100 ####[facility] [address] [place], [address] Lymphocytes/100 WBC (Bld) 27.9 % Normal 19-41 [facility] Comment on above: Performed By: #### L 500.2500, L100.0100 ####[facility] [address] [place], [address] MCH (RBC) [Entitic mass] 28.6 pg Normal 27.0-32.0 [facility] Comment on above: Performed By: #### L 500.2500, L100.0100 ####[facility] [address] [place], [address] MCHC (RBC) [Mass/Vol] 32.3 g/dL Normal 32-36 [facility] Comment on above: Performed By: #### L 500.2500, L100.0100 ####[facility] [address] [place], [address] MCV (RBC) [Entitic vol] 88.5 fL Normal 81-99 [facility] Comment on above: Performed By: #### L 500.2500, L100.0100 ####[facility] [address] [place], [address] Monocytes/100 WBC (Bld) 5.5 % Normal 0-10 [facility] Comment on above: Performed By: #### L 500.2500, L100.0100 ####[facility] [address] [place], [address] Neutrophils/100 WBC (Bld) 62.4 % Normal 47-70 [facility] Comment on above: Performed By: #### L 500.2500, L100.0100 ####[facility] [address] [place], [address] Nucleated RBC (Bld) [#/Vol] 0 10*3/uL Normal 0-5 [facility] Comment on above: Performed By: #### L 500.2500, L100.0100 ####[facility] [address] [place], [address] Platelet mean volume (Bld) [Entitic vol] 12.5 fL High 6.2-12.0 [facility] Comment on above: Performed By: #### L 500.2500, L100.0100 ####[facility] [address] [place], [address] Platelets (Bld) [#/Vol] 158 10*3/uL Normal 150-450 [facility] Comment on above: Performed By: #### L 500.2500, L100.0100 ####[facility] [address] [place], [address] RBC (Bld) [#/Vol] 4.54 10*6/uL Normal 4.2-5.4 [facility] Comment on above: Performed By: #### L 500.2500, L100.0100 ####[facility] [address] [place], [address] RDW SD 42.4 fl Normal 35.1-43.9 [facility] Comment on above: Performed By: #### L 500.2500, L100.0100 ####[facility] [address] [place], [address] WBC (Bld) [#/Vol] 10.1 10*3/uL Normal 4.4-11.0 [facility] Comment on above: Performed By: #### L 500.2500, L100.0100 ####[facility] [address] [place], [address] Urine Cultureon 10-20-2024 [facility] Mixed Gram Positive Organisms [place] Count 11,000-25,000 MIXC Mixed contaminants. Submit a new specimen if indicated. Normal [facility] Comment on above: Performed By: #### M 100.2200 ####[facility] [address] [place], [address] Bedside Glucoseon 10-19-2024 FINGERSTICK GLU 246 mg/dL High 74-106 [facility] Comment on above: Result Comment: EDGAR GEMENT OF PATIENT CARE PER NURSING PROTOCOL Performed By: #### L 501.080 ####[facility] [address] [place], [address] FINGERSTICK GLU 85 mg/dL Normal -[address] [place] [address] Comment on above: Result Comment: EDGAR GEMENT OF PATIENT CARE PER NURSING PROTOCOL Performed By: #### L 501.080 ####[facility] [address] [place], [address] FINGERSTICK GLU 35 mg/dL Invalid Interpretation Code [address] [place] [address] Comment on above: Result Comment: EDGAR GEMENT OF PATIENT CARE PER NURSING PROTOCOL Performed By: #### L 501.080 ####[facility] [address] [place], [address] FINGERSTICK GLU 64 mg/dL Low -[address] [place] [address] Comment on above: Result Comment: EDGAR GEMENT OF PATIENT CARE PER NURSING PROTOCOL Performed By: #### L 501.080 ####[facility] [address] [place], [address] FINGERSTICK GLU 156 mg/dL High [address] [place] [address] Comment on above: Result Comment: EDGAR GEMENT OF PATIENT CARE PER NURSING PROTOCOL Performed By: #### L 501.080 ####[facility] [address] [place], [address] FINGERSTICK GLU 53 mg/dL Low 74-106 [facility] Comment on above: Result Comment: EDGAR GEMENT OF PATIENT CARE PER NURSING PROTOCOL Performed By: #### L 501.080 ####[facility] [address] [place], [address] FINGERSTICK GLU 40 mg/dL Invalid Interpretation Code 74-106 [facility] Comment on above: Result Comment: [facility] GivenMANAGEMENT OF PATIENT CARE PER NURSING PROTOCOL Performed By: #### L 501.080 ####[facility] [address] [place], [address] FINGERSTICK GLU 235 mg/dL High 74-106 [facility] Comment on above: Result Comment: EDGAR GEMENT OF PATIENT CARE PER NURSING PROTOCOL Performed By: #### L 501.080 ####[facility] [address] [place], [address] FINGERSTICK GLU 52 mg/dL Low 74-106 [facility] Comment on above: Result Comment: EDGAR GEMENT OF PATIENT CARE PER NURSING PROTOCOL Performed By: #### L 501.080 ####[facility] [address] [place], [address] FINGERSTICK GLU 132 mg/dL High 74-106 [facility] Comment on above: Result Comment: EDGAR GEMENT OF PATIENT CARE PER NURSING PROTOCOL Performed By: #### L 501.080 ####[facility] [address] [place], [address] CBC W/Diff, Automatedon - Absolute Lymph 3.09 X10 3/uL Normal 0.83-4.51 [facility] Comment on above: Performed By: #### L 500.4050, L100.0100 ####[facility] [address] [place], [address] Absolute Neut 6.9 X10 3/uL Normal 2.0-7.7 [facility] Comment on above: Performed By: #### L 500.4050, L100.0100 ####[facility] [address] [place], [address] Basophils/100 WBC (Bld) 0.5 % Normal 0-1 [facility] Comment on above: Performed By: #### L 500.4050, L100.0100 ####[facility] [address] [place], [address] Eosinophils/100 WBC (Bld) 1.8 % Normal 0-5 [facility] Comment on above: Performed By: #### L 500.4050, L100.0100 ####[facility] [address] [place], [address] Erythrocyte distribution width (RBC) [Ratio] 13.2 % Normal 11.6-14.6 [facility] Comment on above: Performed By: #### L 500.4050, L100.0100 ####[facility] [address] [place], [address] Hematocrit (Bld) [Volume fraction] 37.6 % Normal 37-47 [facility] Comment on above: Performed By: #### L 500.4050, L100.0100 ####[facility] [address] [place], [address] Hemoglobin (Bld) [Mass/Vol] 12.5 g/dL Normal 12.0-15.0 [facility] Comment on above: Performed By: #### L 500.4050, L100.0100 ####[facility] [address] [place], [address] IG% 0.800 Normal 0.0-0.9 [facility] Comment on above: Result Comment: IG% - Immature Granulocytes (promyelocytes, myelocytes andmetamyelocytes) > 1% indicates that a LEFT SHIFT is Present. Performed By: #### L 500.4050, L100.0100 ####[facility] [address] [place], [address] Lymphocytes/100 WBC (Bld) 27.9 % Normal 19-41 [facility] Comment on above: Performed By: #### L 500.4050, L100.0100 ####[facility] [address] [place], [address] MCH (RBC) [Entitic mass] 29.3 pg Normal 27.0-32.0 [facility] Comment on above: Performed By: #### L 500.4050, L100.0100 ####[facility] [address] [place], [address] MCHC (RBC) [Mass/Vol] 33.2 g/dL Normal 32-36 [facility] Comment on above: Performed By: #### L 500.4050, L100.0100 ####[facility] [address] [place], [address] MCV (RBC) [Entitic vol] 88.1 fL Normal 81-99 [facility] Comment on above: Performed By: #### L 500.4050, L100.0100 ####[facility] [address] [place], [address] Monocytes/100 WBC (Bld) 6.8 % Normal 0-10 [facility] Comment on above: Performed By: #### L 500.4050, L100.0100 ####[facility] [address] [place], [address] Neutrophils/100 WBC (Bld) 62.2 % Normal 47-70 [facility] Comment on above: Performed By: #### L 500.4050, L100.0100 ####[facility] [address] [place], [address] Nucleated RBC (Bld) [#/Vol] 0 10*3/uL Normal 0-5 [facility] Comment on above: Performed By: #### L 500.4050, L100.0100 ####[facility] [address] [place], [id number] Platelet mean volume (Bld) [Entitic vol] 12.0 fL Normal 6.2-12.0 [facility] Comment on above: Performed By: #### L 500.4050, L100.0100 ####[facility] [address] [place], [address] Platelets (Bld) [#/Vol] 149 10*3/uL Low 150-450 [facility] Comment on above: Performed By: #### L 500.4050, L100.0100 ####[facility] [address] [place], [address] RBC (Bld) [#/Vol] 4.27 10*6/uL Normal 4.2-5.4 [facility] Comment on above: Performed By: #### L 500.4050, L100.0100 ####[facility] [address] [place], [id number] RDW SD 42.4 fl Normal 35.1-43.9 [facility] Comment on above: Performed By: #### L 500.4050, L100.0100 ####[facility] [address] [place], [address] WBC (Bld) [#/Vol] 11.1 10*3/uL High 4.4-11.0 [facility] Comment on above: Performed By: #### L 500.4050, L100.0100 ####[facility] [address] [place], [id number] Comprehensive Metabolic Prof ilon 10-19-2024 Albumin [Mass/Vol] 3.0 g/dL Low 3.2-5.0 [facility] Comment on above: Performed By: #### L 500.4050, L100.0100 ####[facility] [address] [place], [address] Albumin/Globulin [Mass ratio] 0.9 {ratio} Normal 0.9-2.4 [facility] Comment on above: Performed By: #### L 500.4050, L100.0100 ####[facility] [address] [place], [address] ALK P 67 U/L Normal 45-117 [facility] Comment on above: Performed By: #### L 500.4050, L100.0100 ####[facility] [address] [place], [address] ALT [Catalytic activity/Vol] 21 U/L Normal 13-56 [facility] Comment on above: Performed By: #### L 500.4050, L100.0100 ####[facility] [address] [place], [address] AST [Catalytic activity/Vol] 13 U/L Low 15-37 [facility] Comment on above: Performed By: #### L 500.4050, L100.0100 ####[facility] [address] [place], [address] Bilirubin [Mass/Vol] 0.40 mg/dL Normal 0.20-1.00 [facility] Comment on above: Result Comment: For patients on eltrombopag therapy, use of Dimension [place] TBIL is not recommended. Performed By: #### L 500.4050, L100.0100 ####[facility] [address] [place], [address] BUN/CRE 14.4 RATIO Normal 10-20 [facility] Comment on above: Performed By: #### L 500.4050, L100.0100 ####[facility] [address] [place], [address] CA,Total 8.2 mg/dL Low 8.5-10.1 [facility] Comment on above: Performed By: #### L 500.4050, L100.0100 ####[facility] [address] [place], [address] Chloride [Moles/Vol] 112 mmol/L High 98-107 [facility] Comment on above: Performed By: #### L 500.4050, L100.0100 ####[facility] [address] [place], [address] CO2 [Moles/Vol] 21.0 mmol/L Normal 21.0-32.0 [facility] Comment on above: Performed By: #### L 500.4050, L100.0100 ####[facility] [address] [place], [address] Creatinine [Mass/Vol] 0.55 mg/dL Normal 0.55-1.02 [facility] Comment on above: Result Comment: The validity of the calculated GFR GFRAA in patients over70 years has not been determined. Clinical correlation isessential. Performed By: #### L 500.4050, L100.0100 ####[facility] [address] [place], [address] ECRCL 156.31 ml/min Normal [facility] Comment on above: Performed By: #### L 500.4050, L100.0100 ####[facility] [address] [place], [address] EST GFR - AA 165 mL/min Normal >60 [facility] Comment on above: Result Comment: Afri can Cuban GFR Calc Performed By: #### L 500.4050, L100.0100 ####[facility] [address] [place], [address] GAP 8 Normal 5-15 [facility] Comment on above: Performed By: #### L 500.4050, L100.0100 ####[facility] [address] [place], [address] GFR/1.73 sq M.predicted among non-blacks MDRD (S/P/Bld) [Vol rate/Area] 137 mL/min/{1.73_m2} Normal >60 [facility] Comment on above: Result Comment: Non- GFR Calc Performed By: #### L 500.4050, L100.0100 ####[facility] [address] [place], [address] Globulin (S) [Mass/Vol] 3.2 g/dL Normal 2.2-4.2 [facility] Comment on above: Performed By: #### L 500.4050, L100.0100 ####[facility] [address] [place], [address] Glucose [Mass/Vol] 49 mg/dL Low 74-106 [facility] Comment on above: Result Comment: Gluc ose result less than 50 mg/dL suggests HYPOGLYCEMIA. Performed By: #### L 500.4050, L100.0100 ####[facility] [address] [place], [address] Potassium [Moles/Vol] 3.7 mmol/L Normal 3.5-5.1 [facility] Comment on above: Performed By: #### L 500.4050, L100.0100 ####[facility] [address] [place], [address] Sodium [Moles/Vol] 140 mmol/L Normal 136-145 [facility] Comment on above: Performed By: #### L 500.4050, L100.0100 ####[facility] [address] [place], [address] T PROT 6.2 g/dL Low 6.4-8.2 [facility] Comment on above: Performed By: #### L 500.4050, L100.0100 ####[facility] [address] [place], [address] Urea nitrogen [Mass/Vol] 8 mg/dL Normal 7-18 [facility] Comment on above: Performed By: #### L 500.4050, L100.0100 ####[facility] [address] [place], [address] Glucoseon 10-19-2024 Glucose [Mass/Vol] 231 mg/dL High 74-106 [facility] Comment on above: Result Comment: Gluc ose result greater than or equal to 200 mg/dLsuggests DIABETES MELLITUS per A.D.A. criteria. Performed By: #### L 501.0100 ####[facility] [address] [place], [address] Glucose [Mass/Vol] 88 mg/dL Normal 74-106 [facility] Comment on above: Performed By: #### L 501.0100 ####[facility] [address] [place], [address] 12 Lead EKGon 10-18-2024 12 Lead EKG Normal [facility] Abdomen/Pelvis W IV Cont ONL Yon 10-18-2024 Abdomen/Pelvis W IV Cont ONLY Normal [facility] Acetone Serumon 10-18-2024 ACETONE SERUM Negative Normal NEG [facility] Comment on above: Performed By: #### L 501.6900 ####[facility] [address] [place], [address] Bedside Glucoseon 10-18-2024 FINGERSTICK GLU 85 mg/dL Normal 74-106 [facility] Comment on above: Result Comment: EDGAR HUNG OF PATIENT CARE PER NURSING PROTOCOL Performed By: #### L 501.080 ####[facility] [address] [place], [address] FINGERSTICK GLU 100 mg/dL Normal 74-106 [facility] Comment on above: Result Comment: EDGAR GEMENT OF PATIENT CARE PER NURSING PROTOCOL Performed By: #### L 501.080 ####[facility] [address] [place], [address] FINGERSTICK GLU 62 mg/dL Low 74-106 [facility] Comment on above: Result Comment: EDGAR GEMENT OF PATIENT CARE PER NURSING PROTOCOL Performed By: #### L 501.080 ####[facility] [address] [place], [address] CBC W/Diff, Automatedon 02- Absolute Lymph 1.82 X10 3/uL Normal 0.83-4.51 [facility] Comment on above: Performed By: #### L 500.4050, L100.0100, L700.6800, L501.2450 ####[facility] [address] [place], [address] Absolute Neut 14.0 X10 3/uL High 2.0-7.7 [facility] Comment on above: Performed By: #### L 500.4050, L100.0100, L700.6800, L501.2450 ####[facility] [address] [place], [address] Basophils/100 WBC (Bld) 0.2 % Normal 0-1 [facility] Comment on above: Performed By: #### L 500.4050, L100.0100, L700.6800, L501.2450 ####[facility] [address] [place], [address] Eosinophils/100 WBC (Bld) 0.2 % Normal 0-5 [facility] Comment on above: Performed By: #### L 500.4050, L100.0100, L700.6800, L501.2450 ####[facility] [address] [place], [address] Erythrocyte distribution width (RBC) [Ratio] 13.1 % Normal 11.6-14.6 [facility] Comment on above: Performed By: #### L 500.4050, L100.0100, L700.6800, L501.2450 ####[facility] [address] [place], [address] Hematocrit (Bld) [Volume fraction] 38.8 % Normal 37-47 [facility] Comment on above: Performed By: #### L 500.4050, L100.0100, L700.6800, L501.2450 ####[facility] [address] [place], [address] Hemoglobin (Bld) [Mass/Vol] 12.9 g/dL Normal 12.0-15.0 [facility] Comment on above: Performed By: #### L 500.4050, L100.0100, L700.6800, L501.2450 ####[facility] [address] [place], [address] IG% 0.600 Normal 0.0-0.9 [facility] Comment on above: Result Comment: IG% - Immature Granulocytes (promyelocytes, myelocytes andmetamyelocytes) > 1% indicates that a LEFT SHIFT is Present. Performed By: #### L 500.4050, L100.0100, L700.6800, L501.2450 ####[facility] [address] [place], [address] Lymphocytes/100 WBC (Bld) 10.7 % Low 19-41 [facility] Comment on above: Performed By: #### L 500.4050, L100.0100, L700.6800, L501.2450 ####[facility] [address] [place], [address] MCH (RBC) [Entitic mass] 29.3 pg Normal 27.0-32.0 [facility] Comment on above: Performed By: #### L 500.4050, L100.0100, L700.6800, L501.2450 ####[facility] [address] [place], [id number] MCHC (RBC) [Mass/Vol] 33.2 g/dL Normal 32-36 [facility] Comment on above: Performed By: #### L 500.4050, L100.0100, L700.6800, L501.2450 ####[facility] [address] [place], [address] MCV (RBC) [Entitic vol] 88.2 fL Normal 81-99 [facility] Comment on above: Performed By: #### L 500.4050, L100.0100, L700.6800, L501.2450 ####[facility] [address] [place], [address] Monocytes/100 WBC (Bld) 6.1 % Normal 0-10 [facility] Comment on above: Performed By: #### L 500.4050, L100.0100, L700.6800, L501.2450 ####[facility] [address] [place], [address] Neutrophils/100 WBC (Bld) 82.2 % High 47-70 [facility] Comment on above: Performed By: #### L 500.4050, L100.0100, L700.6800, L501.2450 ####[facility] [address] [place], [address] Nucleated RBC (Bld) [#/Vol] 0 10*3/uL Normal 0-5 [facility] Comment on above: Performed By: #### L 500.4050, L100.0100, L700.6800, L501.2450 ####[facility] [address] [place], [address] Platelet mean volume (Bld) [Entitic vol] 12.3 fL High 6.2-12.0 [facility] Comment on above: Performed By: #### L 500.4050, L100.0100, L700.6800, L501.2450 ####[facility] [address] [place], [address] Platelets (Bld) [#/Vol] 166 10*3/uL Normal 150-450 [facility] Comment on above: Performed By: #### L 500.4050, L100.0100, L700.6800, L501.2450 ####[facility] [address] [place], [address] RBC (Bld) [#/Vol] 4.40 10*6/uL Normal 4.2-5.4 [facility] Comment on above: Performed By: #### L 500.4050, L100.0100, L700.6800, L501.2450 ####[facility] [address] [place], [address] RDW SD 42.5 fl Normal 35.1-43.9 [facility] Comment on above: Performed By: #### L 500.4050, L100.0100, L700.6800, L501.2450 ####[facility] [address] [place], [address] WBC (Bld) [#/Vol] 17.1 10*3/uL High 4.4-11.0 [facility] Comment on above: Performed By: #### L 500.4050, L100.0100, L700.6800, L501.2450 ####[facility] [address] [place], [address] Comprehensive Metabolic Prof [facility] 10-18-2024 Albumin [Mass/Vol] 3.7 g/dL Normal 3.2-5.0 [facility] Comment on above: Performed By: #### L 500.4050, L100.0100, L700.6800, L501.2450 ####[facility] [address] [place], [address] Albumin/Globulin [Mass ratio] 1.1 {ratio} Normal 0.9-2.4 [facility] Comment on above: Performed By: #### L 500.4050, L100.0100, L700.6800, L501.2450 ####[facility] [address] [place], [address] ALK P 84 U/L Normal 45-117 [facility] Comment on above: Performed By: #### L 500.4050, L100.0100, L700.6800, L501.2450 ####[facility] [address] [place], [address] ALT [Catalytic activity/Vol] 24 U/L Normal 13-56 [facility] Comment on above: Performed By: #### L 500.4050, L100.0100, L700.6800, L501.2450 ####[facility] [address] [place], [address] AST [Catalytic activity/Vol] 14 U/L Low 15-37 [facility] Comment on above: Performed By: #### L 500.4050, L100.0100, L700.6800, L501.2450 ####[facility] [address] [place], [address] Bilirubin [Mass/Vol] 0.40 mg/dL Normal 0.20-1.00 [facility] Comment on above: Result Comment: For patients on eltrombopag therapy, use of Dimension [place] TBIL is not recommended. Performed By: #### L 500.4050, L100.0100, L700.6800, L501.2450 ####[facility] [address] [place], [address] BUN/CRE 19.7 RATIO Normal 10-20 [facility] Comment on above: Performed By: #### L 500.4050, L100.0100, L700.6800, L501.2450 ####[facility] [address] [place], [address] CA,Total 9.4 mg/dL Normal 8.5-10.1 [facility] Comment on above: Performed By: #### L 500.4050, L100.0100, L700.6800, L501.2450 ####[facility] [address] [place], [address] Chloride [Moles/Vol] 109 mmol/L High 98-107 [facility] Comment on above: Performed By: #### L 500.4050, L100.0100, L700.6800, L501.2450 ####[facility] [address] [place], [address] CO2 [Moles/Vol] 25.0 mmol/L Normal 21.0-32.0 [facility] Comment on above: Performed By: #### L 500.4050, L100.0100, L700.6800, L501.2450 ####[facility] [address] [place], [address] Creatinine [Mass/Vol] 0.76 mg/dL Normal 0.55-1.02 [facility] Comment on above: Result Comment: The validity of the calculated GFR GFRAA in patients over70 years has not been determined. Clinical correlation isessential. Performed By: #### L 500.4050, L100.0100, L700.6800, L501.2450 ####[facility] [address] [place], [address] ECRCL 123.05 ml/min Normal [facility] Comment on above: Performed By: #### L 500.4050, L100.0100, L700.6800, L501.2450 ####[facility] [address] [place], [address] EST GFR - AA 115 mL/min Normal >60 [facility] Comment on above: Result Comment: Afri can Cuban GFR Calc Performed By: #### L 500.4050, L100.0100, L700.6800, L501.2450 ####[facility] [address] [place], [address] GAP 5 Normal 5-15 [facility] Comment on above: Performed By: #### L 500.4050, L100.0100, L700.6800, L501.2450 ####[facility] [address] [place], [address] GFR/1.73 sq M.predicted among non-blacks MDRD (S/P/Bld) [Vol rate/Area] 95 mL/min/{1.73_m2} Normal >60 [facility] Comment on above: Result Comment: Non- GFR Calc Performed By: #### L 500.4050, L100.0100, L700.6800, L501.2450 ####[facility] [address] [place], [address] Globulin (S) [Mass/Vol] 3.4 g/dL Normal 2.2-4.2 [facility] Comment on above: Performed By: #### L 500.4050, L100.0100, L700.6800, L501.2450 ####[facility] [address] [place], [address] Glucose [Mass/Vol] 116 mg/dL High 74-106 [facility] Comment on above: Result Comment: Fast ing Glucose result from 100 to 125 mg/dLsuggests IMPAIRED HOMEOSTASIS per A.D.A. criteria. Performed By: #### L 500.4050, L100.0100, L700.6800, L501.2450 ####[facility] [address] [place], [address] Potassium [Moles/Vol] 4.0 mmol/L Normal 3.5-5.1 [facility] Comment on above: Performed By: #### L 500.4050, L100.0100, L700.6800, L501.2450 ####[facility] [address] [place], [address] Sodium [Moles/Vol] 139 mmol/L Normal 136-145 [facility] Comment on above: Performed By: #### L 500.4050, L100.0100, L700.6800, L501.2450 ####[facility] [address] [place], [address] T PROT 7.1 g/dL Normal 6.4-8.2 [facility] Comment on above: Performed By: #### L 500.4050, L100.0100, L700.6800, L501.2450 ####[facility] [address] [place], [address] Urea nitrogen [Mass/Vol] 15 mg/dL Normal 7-18 [facility] Comment on above: Performed By: #### L 500.4050, L100.0100, L700.6800, L501.2450 ####[facility] [address] [place], [address] Emergency Department Summary on 10-18-2024 Emergency Department Summary Normal [facility] H AND P Exam - Hospitaliston 10-18-2024 H&P Exam - Hospitalist Normal [facility] Lactic Acidon 10-18-2024 Lactate [Moles/Vol] 1.4 mmol/L Normal 0.4-1.9 [facility] Comment on above: Order Comment: Y Performed By: #### L 503.6005, L700.6800 ####[facility] [address] [place], [address] Lipaseon 10-18-2024 Lipase [Catalytic activity/Vol] 18 U/L Low 73-393 [facility] Comment on above: Performed By: #### L 500.4050, L100.0100, L700.6800, L501.2450 ####[facility] [address] [place], [address] M100.678on 10-18-2024 M100.678 SARS-CoV-2 (COVID 19 ) Negative INFLUENZA A Negative INFLUENZA B Negative RSV PCR Negative Normal [facility] Comment on above: Performed By: #### M 100.678 ####[facility] [address] [place], [address] Magnesiumon 10-18-2024 Magnesium [Mass/Vol] 1.8 mg/dL Normal 1.6-2.6 [facility] Comment on above: Order Comment: Comme nts: May add to ED labsComments: may add to ED labs Performed By: #### L 501.5200, L501.2300, L509.7000 ####[facility] [address] [place], [address] Phosphoruson 10-18-2024 Phosphate [Mass/Vol] 3.3 mg/dL Normal 2.5-4.9 [facility] Comment on above: Order Comment: Comme nts: May add to ED labsComments: may add to ED labs Performed By: #### L 501.5200, L501.2300, L509.7000 ####[facility] [address] [place], [address] ,Serum,hCG Quali.on 10-18-2024 HCG, SERUM QUAL Negative Normal [facility] Comment on above: Performed By: #### L 500.4050, L100.0100, L700.6800, L501.2450 ####[facility] [address] [place], [address] HCG, SERUM QUAL Normal [facility] Comment on above: Result Comment: Canc elled via OM: MD Ordered Performed By: #### L 503.6005, L700.6800 ####[facility] [address] [place], [address] INTERNAL QC OK? Normal [facility] Comment on above: Result Comment: Canc elled via OM: MD Ordered Performed By: #### L 503.6005, L700.6800 ####[facility] [address] [place], [address] RECORD KIT LOT# [facility] Comment on above: Result Comment: Canc elled via OM: MD Ordered Performed By: #### L 503.6005, L700.6800 ####[facility] [address] [place], [address] Procalcitoninon 10-18-2024 Procalcitonin 0.07 ng/mL Normal 0.00-0.09 [facility] Comment on above: Result Comment: A pr [...] ng/mL are obtained. Performed By: #### L 501.5200, L501.2300, L509.7000 ####[facility] [address] [place], [address] Urinalysis, Completeon 10-18 BACTERIA 1+ /hpf Normal None Seen [facility] Comment on above: Order Comment: CLEAN CATCH Performed By: #### L 400.0001 ####[facility] [address] [place], [address] EPI,SQUAMOUS 0-5 SEEN Normal 5-10 [facility] Comment on above: Order Comment: CLEAN CATCH Performed By: #### L 400.0001 ####[facility] [address] [place], [address] Mucus Ql (Urine sed) 1+ /hpf Normal [facility] Comment on above: Order Comment: CLEAN CATCH Performed By: #### L 400.0001 ####[facility] [address] [place], [address] RBC 5-10 SEEN Normal 0-5 [facility] Comment on above: Order Comment: CLEAN CATCH Performed By: #### L 400.0001 ####[facility] [address] [place], [address] WBC 10-25 SEEN Normal 0-5 [facility] Comment on above: Order Comment: CLEAN CATCH Performed By: #### L 400.0001 ####[facility] [address] [place], [address] Venous Blood Gason 5 Blood Gas Type ISABELLE Normal [facility] Comment on above: Performed By: #### L 9000.0810 ####[facility] [address] [place], [address] CO2 [Moles/Vol] 26 mmol/L Normal 23-33 [facility] Comment on above: Performed By: #### L 9000.0810 ####[facility] [address] [place], [address] HCO3 (Bld) [Moles/Vol] 25 mmol/L Normal 22-26 [facility] Comment on above: Performed By: #### L 9000.0810 ####[facility] [address] [place], [address] O2 Delivery Dev Room Air Normal [facility] Comment on above: Performed By: #### L 9000.0810 ####[facility] [address] [place], [address] SITE Not entered Normal [facility] Comment on above: Performed By: #### L 9000.0810 ####[facility] [address] [place], [address] VBG BE 0 mmol/L Normal -1.0-3.5 [facility] Comment on above: Performed By: #### L 9000.0810 ####[facility] [address] [place], [address] VBG pCO2 41.6 mmHg Normal 41-51 [facility] Comment on above: Performed By: #### L 9000.0810 ####[facility] [address] [place], [address] VBG pH 7.38 Normal 7.32-7.42 [facility] Comment on above: Performed By: #### L 9000.0810 ####[facility] [address] [place], [address] VBG PO2 32 mmHg Normal 25-40 [facility] Comment on above: Performed By: #### L 9000.0810 ####[facility] [address] [place], [address] VBG SO2 59 Normal 50-70 [facility] Comment on above: Performed By: #### L 9000.0810 ####[facility] [address] [place], [address] Dipak 10-02-2024 GIOVANA Telephone (ENDOIN) DAISYKATHLEEN Swain ([id number]) 1995 F CHT Date Time Provider Department 10/02/24 JESSICA GUERRERO During your visit today, we recorded the following information about you: Nichole Quinteros 10/02/2024 9:53 AM Signed Patient has been identified by name and date of : Yes Type of form: [facility] Medical Physician Order for Insulin Pump Therapy and Diabetes Testing Form received via: abstract When form is completed, fax form to fax number provided. Form has been forwarded to: Provider's mailbox. Provider name: FRIEDA Urena Diamond, STIVEN 10/02/2024 2:45 PM Signed Clinical notes and DWO for infusion supplies placed on providers desk to review and advise. To be faxed to [facility] Medical [phone] Jessica Guerrero APRN.CNP 10/02/2024 3:09 PM Signed Form signed. Jessica Guerrero APRN.Estrellita Viera, STIVEN 10/10/2024 11:49 AM Signed Form re-faxed per [facility] request Allergies As of Date: [...] for Visit: Forms [913] Prescriptions as of 10/10/2024 - Acetone, Urine, [...] Units subcutaneously every 24 hours. 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 Normal [facility] Basic Metabolic Profile (BMP )on 09-02-2024 BUN/CRE 16.2 RATIO Normal 10-20 [facility] Comment on above: Performed By: #### L 500.2500, L100.0100 ####[facility] [address] [place], [address] CA,Total 9.2 mg/dL Normal 8.5-10.1 [facility] Comment on above: Performed By: #### L 500.2500, L100.0100 ####[facility] [address] [place], [address] Chloride [Moles/Vol] 112 mmol/L High 98-107 [facility] Comment on above: Performed By: #### L 500.2500, L100.0100 ####[facility] [address] [place], [address] CO2 [Moles/Vol] 21.0 mmol/L Normal 21.0-32.0 [facility] Comment on above: Performed By: #### L 500.2500, L100.0100 ####[facility] [address] [place], [address] Creatinine [Mass/Vol] 0.86 mg/dL Normal 0.55-1.02 [facility] Comment on above: Result Comment: The validity of the calculated GFR GFRAA in patients over70 years has not been determined. Clinical correlation isessential. Performed By: #### L 500.2500, L100.0100 ####[facility] [address] [place], [address] ECRCL 99.96 ml/min Normal [facility] Comment on above: Performed By: #### L 500.2500, L100.0100 ####[facility] [address] [place], [address] EST GFR - AA 99 mL/min Normal >60 [facility] Comment on above: Result Comment: Afri can Cuban GFR Calc Performed By: #### L 500.2500, L100.0100 ####[facility] [address] [place], [address] GAP 10 Normal 5-15 [facility] Comment on above: Performed By: #### L 500.2500, L100.0100 ####[facility] [address] [place], [address] GFR/1.73 sq M.predicted among non-blacks MDRD (S/P/Bld) [Vol rate/Area] 82 mL/min/{1.73_m2} Normal >60 [facility] Comment on above: Result Comment: Non- GFR Calc Performed By: #### L 500.2500, L100.0100 ####[facility] [address] [place], [address] Glucose [Mass/Vol] 129 mg/dL High 74-106 [facility] Comment on above: Result Comment: Fast ing Glucose result greater than or equal to 126 mg/dLsuggests DIABETES MELLITUS per A.D.A. criteria. Performed By: #### L 500.2500, L100.0100 ####[facility] [address] [place], [address] Potassium [Moles/Vol] 3.0 mmol/L Low 3.5-5.1 [facility] Comment on above: Performed By: #### L 500.2500, L100.0100 ####[facility] [address] [place], [address] Sodium [Moles/Vol] 142 mmol/L Normal 136-145 [facility] Comment on above: Performed By: #### L 500.2500, L100.0100 ####[facility] [address] [place], [address] Urea nitrogen [Mass/Vol] 14 mg/dL Normal 7-18 [facility] Comment on above: Performed By: #### L 500.2500, L100.0100 ####[facility] [address] [place], [address] CBC W/Diff, Automatedon 01-0 6-2025 Absolute Lymph 2.60 X10 3/uL Normal 0.83-4.51 [facility] Comment on above: Performed By: #### L 500.2500, L100.0100 ####[facility] [address] [place], [address] Absolute Neut 12.8 X10 3/uL High 2.0-7.7 [facility] Comment on above: Performed By: #### L 500.2500, L100.0100 ####[facility] [address] [place], [address] Basophils/100 WBC (Bld) 0.5 % Normal 0-1 [facility] Comment on above: Performed By: #### L 500.2500, L100.0100 ####[facility] [address] [place], [address] Eosinophils/100 WBC (Bld) 0.4 % Normal 0-5 [facility] Comment on above: Performed By: #### L 500.2500, L100.0100 ####[facility] [address] [place], [address] Erythrocyte distribution width (RBC) [Ratio] 12.6 % Normal 11.6-14.6 [facility] Comment on above: Performed By: #### L 500.2500, L100.0100 ####[facility] [address] [place], [address] Hematocrit (Bld) [Volume fraction] 42.7 % Normal 37-47 [facility] Comment on above: Performed By: #### L 500.2500, L100.0100 ####[facility] [address] [place], [address] Hemoglobin (Bld) [Mass/Vol] 14.1 g/dL Normal 12.0-15.0 [facility] Comment on above: Performed By: #### L 500.2500, L100.0100 ####[facility] [address] [place], [address] IG% 1.000 High 0.0-0.9 [facility] Comment on above: Result Comment: IG% - Immature Granulocytes (promyelocytes, myelocytes andmetamyelocytes) > 1% indicates that a LEFT SHIFT is Present. Performed By: #### L 500.2500, L100.0100 ####[facility] [address] [place], [address] Lymphocytes/100 WBC (Bld) 15.8 % Low 19-41 [facility] Comment on above: Performed By: #### L 500.2500, L100.0100 ####[facility] [address] [place], [address] MCH (RBC) [Entitic mass] 28.9 pg Normal 27.0-32.0 [facility] Comment on above: Performed By: #### L 500.2500, L100.0100 ####[facility] [address] [place], [address] MCHC (RBC) [Mass/Vol] 33.0 g/dL Normal 32-36 [facility] Comment on above: Performed By: #### L 500.2500, L100.0100 ####[facility] [address] [place], [address] MCV (RBC) [Entitic vol] 87.5 fL Normal 81-99 [facility] Comment on above: Performed By: #### L 500.2500, L100.0100 ####[facility] [address] [place], [address] Monocytes/100 WBC (Bld) 4.6 % Normal 0-10 [facility] Comment on above: Performed By: #### L 500.2500, L100.0100 ####[facility] [address] [place], [address] Neutrophils/100 WBC (Bld) 77.7 % High 47-70 [facility] Comment on above: Performed By: #### L 500.2500, L100.0100 ####[facility] [address] [place], [address] Nucleated RBC (Bld) [#/Vol] 0 10*3/uL Normal 0-5 [facility] Comment on above: Performed By: #### L 500.2500, L100.0100 ####[facility] [address] [place], [address] Platelet mean volume (Bld) [Entitic vol] 12.5 fL High 6.2-12.0 [facility] Comment on above: Performed By: #### L 500.2500, L100.0100 ####[facility] [address] [place], [address] Platelets (Bld) [#/Vol] 199 10*3/uL Normal 150-450 [facility] Comment on above: Performed By: #### L 500.2500, L100.0100 ####[facility] [address] [place], [address] RBC (Bld) [#/Vol] 4.88 10*6/uL Normal 4.2-5.4 [facility] Comment on above: Performed By: #### L 500.2500, L100.0100 ####[facility] [address] [place], [address] RDW SD 40.3 fl Normal 35.1-43.9 [facility] Comment on above: Performed By: #### L 500.2500, L100.0100 ####[facility] [address] [place], [address] WBC (Bld) [#/Vol] 16.5 10*3/uL High 4.4-11.0 [facility] Comment on above: Performed By: #### L 500.2500, L100.0100 ####[facility] [address] [place], [address] Emergency Department Summary on 09-02-2024 Emergency Department Summary Normal [facility] Urinalysis, Completeon 09-02 BACTERIA 2+ /hpf Normal None Seen [facility] Comment on above: Order Comment: CLEAN CATCH Performed By: #### L 400.0001 ####[facility] [address] [place], [address] EPI,SQUAMOUS 0-5 SEEN Normal 5-10 [facility] Comment on above: Order Comment: CLEAN CATCH Performed By: #### L 400.0001 ####[facility] [address] [place], [address] Mucus Ql (Urine sed) RARE Normal [facility] Comment on above: Order Comment: CLEAN CATCH Performed By: #### L 400.0001 ####[facility] [address] [place], [address] WBC 0-5 SEEN Normal 0-5 [facility] Comment on above: Order Comment: CLEAN CATCH Performed By: #### L 400.0001 ####[facility] [address] [place], [address] RBC 0 SEEN Normal 0-5 [facility] Comment on above: Order Comment: CLEAN CATCH Performed By: #### L 400.0001 ####[facility] [address] [place], [address] 36on 08-07-2024 36 Medication: Skyrizi 150mg/ml Dosing Schedule: 150mg every 12 weeks Prior Authorization: Submitted date: 08.07.2024 [place] reference #: [id number] Approval dates: 08.07.2024-08.27.2024 Caitie [facility] [phone] [facility] Urine Cultureon 08-04-2024 [facility] Mixed Gram Positive Organisms [place] Count 11,000-25,000 [facility] Mixed contaminants. Submit a new specimen if indicated. Normal [facility] Comment on above: Performed By: #### M 100.2200 ####[facility] [address] [place], [address] Basic Metabolic Profile (BMP )on 08-03-2024 BUN/CRE 9.9 RATIO Low 10-20 [facility] Comment on above: Order Comment: Call MD with results STAT Performed By: #### L 501.2300, L500.2500, L501.9520 ####[facility] [address] [place], [address] CA,Total 7.9 mg/dL Low 8.5-10.1 [facility] Comment on above: Order Comment: Call MD with results STAT Performed By: #### L 501.2300, L500.2500, L501.9520 ####[facility] [address] [place], [address] Chloride [Moles/Vol] 114 mmol/L High 98-107 [facility] Comment on above: Order Comment: Call MD with results STAT Performed By: #### L 501.2300, L500.2500, L501.9520 ####[facility] [address] [place], [address] CO2 [Moles/Vol] 22.0 mmol/L Normal 21.0-32.0 [facility] Comment on above: Order Comment: Call MD with results STAT Performed By: #### L 501.2300, L500.2500, L501.9520 ####[facility] [address] [place], [address] Creatinine [Mass/Vol] 0.61 mg/dL Normal 0.55-1.02 [facility] Comment on above: Order Comment: Call MD with results STAT Result Comment: The validity of the calculated GFR GFRAA in patients over70 years has not been determined. Clinical correlation isessential. Performed By: #### L 501.2300, L500.2500, L501.9520 ####[facility] [address] [place], [address] ECRCL 140.93 ml/min Normal [facility] Comment on above: Order Comment: Call MD with results STAT Performed By: #### L 501.2300, L500.2500, L501.9520 ####[facility] [address] [place], [address] EST GFR - AA 149 mL/min Normal >60 [facility] Comment on above: Order Comment: Call MD with results STAT Result Comment: Afri can Cuban GFR Calc Performed By: #### L 501.2300, L500.2500, L501.9520 ####[facility] [address] [place], [address] GAP 5 Normal 5-15 [facility] Comment on above: Order Comment: Call MD with results STAT Performed By: #### L 501.2300, L500.2500, L501.9520 ####[facility] [address] [place], [address] GFR/1.73 sq M.predicted among non-blacks MDRD (S/P/Bld) [Vol rate/Area] 123 mL/min/{1.73_m2} Normal >60 [facility] Comment on above: Order Comment: Call MD with results STAT Result Comment: Non- GFR Calc Performed By: #### L 501.2300, L500.2500, L501.9520 ####[facility] [address] [place], [address] Glucose [Mass/Vol] 193 mg/dL High 74-106 [facility] Comment on above: Order Comment: Call MD with results STAT Result Comment: Fast ing Glucose result greater than or equal to 126 mg/dLsuggests DIABETES MELLITUS per A.D.A. criteria. Performed By: #### L 501.2300, L500.2500, L501.9520 ####[facility] [address] [place], [address] Potassium [Moles/Vol] 4.5 mmol/L Normal 3.5-5.1 [facility] Comment on above: Order Comment: Call MD with results STAT Result Comment: Slig ht Hemolysis, Result may be falsely increased. Performed By: #### L 501.2300, L500.2500, L501.9520 ####[facility] [address] [place], [address] Sodium [Moles/Vol] 140 mmol/L Normal 136-145 [facility] Comment on above: Order Comment: Call with results STAT Performed By: #### L 501.2300, L500.2500, L501.9520 ####[facility] [address] [place], [address] Urea nitrogen [Mass/Vol] 6 mg/dL Low 7-18 [facility] Comment on above: Order Comment: Call with results STAT Performed By: #### L 501.2300, L500.2500, L501.9520 ####[facility] [address] [place], [address] BUN Normal 7-18 [facility] Comment on above: Order Comment: Call with results STAT Result Comment: @NOT NEEDED BY [employer] INSPECTOR Performed By: #### L 500.2500 ####[facility] [address] [place], [address] BUN/CRE Normal 10-20 [facility] Comment on above: Order Comment: Call with results STAT Result Comment: @NOT NEEDED BY [employer] INSPECTOR Performed By: #### L 500.2500 ####[facility] [address] [place], [address] CA,Total Normal 8.5-10.1 [facility] Comment on above: Order Comment: Call MD with results STAT Result Comment: @NOT NEEDED BY ROLANR2 HOUSING QUALITY STANDARD INSPECTOR Performed By: #### L 500.2500 ####[facility] [address] [place] [phone] CL Normal 98-107 [facility] Comment on above: Order Comment: Call MD with results STAT Result Comment: @NOT NEEDED BY ROLANR2 HOUSING QUALITY STANDARD INSPECTOR Performed By: #### L 500.2500 ####[facility] [address] [place] [phone] CO2 Normal 21.0-32.0 [facility] Comment on above: Order Comment: Call MD with results STAT Result Comment: @NOT NEEDED BY ROLANR2 HOUSING QUALITY STANDARD INSPECTOR Performed By: #### L 500.2500 ####[facility] [address] [place] [phone] CREAT,SERUM Normal 0.55-1.02 [facility] Comment on above: Order Comment: Call MD with results STAT Result Comment: @NOT NEEDED BY [employer]R2 HOUSING QUALITY STANDARD INSPECTOR Performed By: #### L 500.2500 ####[facility] [address] [place] [phone] EST GFR Normal >60 [facility] Comment on above: Order Comment: Call MD with results STAT Result Comment: @NOT NEEDED BY ROLANR2 HOUSING QUALITY STANDARD INSPECTOR Performed By: #### L 500.2500 ####[facility] [address] [place] [phone] EST GFR - AA Normal >60 [facility] Comment on above: Order Comment: Call MD with results STAT Result Comment: @NOT NEEDED BY [employer]R2 HOUSING QUALITY STANDARD INSPECTOR Performed By: #### L 500.2500 ####[facility] [address] [place], [address] GAP Normal 5-15 [facility] Comment on above: Order Comment: Call MD with results STAT Result Comment: @NOT NEEDED BY [employer] HOUSING QUALITY STANDARD INSPECTOR Performed By: #### L 500.2500 ####[facility] [address] [place], [address] GLU Normal 74-106 [facility] Comment on above: Order Comment: Call MD with results STAT Result Comment: @NOT NEEDED BY TMPETRONAR2 HOUSING QUALITY STANDARD INSPECTOR Performed By: #### L 500.2500 ####[facility] [address] [place], [address] Potassium Normal 3.5-5.1 [facility] Comment on above: Order Comment: Call MD with results STAT Result Comment: @NOT NEEDED BY TMPETRONAR2 HOUSING QUALITY STANDARD INSPECTOR Performed By: #### L 500.2500 ####[facility] [address] [place], [address] Basic Metabolic Profile (BMP) Normal 136-145 [facility] Comment on above: Order Comment: Call MD with results STAT Result Comment: @NOT NEEDED BY R[employer]R2 HOUSING QUALITY STANDARD INSPECTOR Performed By: #### L 500.2500 ####[facility] [address] [place], [address] Bedside Glucoseon 08-03-2024 FINGERSTICK GLU 212 mg/dL High 74-106 [facility] Comment on above: Result Comment: EDGAR GEMENT OF PATIENT CARE PER NURSING PROTOCOL Performed By: #### L 501.080 ####[facility] [address] [place], [address] FINGERSTICK GLU 256 mg/dL High 74-106 [facility] Comment on above: Result Comment: EDGAR GEMENT OF PATIENT CARE PER NURSING PROTOCOL Performed By: #### L 501.080 ####[facility] [address] [place], [address] FINGERSTICK GLU 153 mg/dL High 74-106 [facility] Comment on above: Result Comment: EDGAR HUNG OF PATIENT CARE PER NURSING PROTOCOL Performed By: #### L 501.080 ####[facility] [address] [place], [address] Discharge Instructionon 12-0 Discharge Instruction Normal [facility] Phosphoruson 08-03-2024 Phosphate [Mass/Vol] 1.8 mg/dL Low 2.5-4.9 [facility] Comment on above: Order Comment: Call MD with results STAT Performed By: #### L 501.2300, L500.2500, L501.9520 ####[facility] [address] [place], [address] Thyroid Stim Hormone (TSH)on 08-03-2024 TSH 2.360 uIU/mL Normal 0.358-3.740 [facility] Comment on above: Order Comment: Call with results STAT Performed By: #### L 501.2300, L500.2500, L501.9520 ####[facility] [address] [place], [address] Acetone Serumon 08-02-2024 ACETONE SERUM Negative Normal NEG [facility] Comment on above: Performed By: #### L 501.6900 ####[facility] [address] [place], [address] ACETONE SERUM SMALL Abnormal NEG [facility] Comment on above: Result Comment: RESU LTS CALLED TO [facility]FORREST 08/02/24 0107 Jhoana Martínez.REPORT READ BACK BY SAME. Performed By: #### L 100.0100, L503.6005, L700.6800, L501.6900, L500.3400, L501.5200, L501.2450, L500.2500 ####[facility] [address] [place], [address] Basic Metabolic Profile (BMP )on 08-02-2024 BUN Normal 7-18 [facility] Comment on above: Order Comment: Call MD with results STAT Result Comment: @NOT NEEDED BY PETRONAR2 HOUSING QUALITY STANDARD INSPECTOR Performed By: #### L 500.2500 ####[facility] [address] [place], [address] BUN/CRE Normal 10-20 [facility] Comment on above: Order Comment: Call MD with results STAT Result Comment: @NOT NEEDED BY PETRONAR2 HOUSING QUALITY STANDARD INSPECTOR Performed By: #### L 500.2500 ####[facility] [address] [place], [address] CA,Total Normal 8.5-10.1 [facility] Comment on above: Order Comment: Call MD with results STAT Result Comment: @NOT NEEDED BY EPTRONAR2 HOUSING QUALITY STANDARD INSPECTOR Performed By: #### L 500.2500 ####[facility] [address] [place], [address] CL Normal 98-107 [facility] Comment on above: Order Comment: Call MD with results STAT Result Comment: @NOT NEEDED BY [facility] H[facility] QUALITY STANDARD INSPECTOR Performed By: #### L 500.2500 ####[facility] [address] [place], [address] CO2 Normal 21.0-32.0 [facility] Comment on above: Order Comment: Call MD with results STAT Result Comment: @NOT NEEDED BY [facility] HOUSING QUALITY STANDARD INSPECTOR Performed By: #### L 500.2500 ####[facility] [address] [place], [address] CREAT,SERUM Normal 0.55-1.02 [facility] Comment on above: Order Comment: Call MD with results STAT Result Comment: @NOT NEEDED BY TMPETRONAR2 HOUSING QUALITY STANDARD INSPECTOR Performed By: #### L 500.2500 ####[facility] [address] [place], [address] EST GFR Normal >60 [facility] Comment on above: Order Comment: Call MD with results STAT Result Comment: @NOT NEEDED BY TMPETRONAR2 HOUSING QUALITY STANDARD INSPECTOR Performed By: #### L 500.2500 ####[facility] [address] [place], [address] EST GFR - AA Normal >60 [facility] Comment on above: Order Comment: Call MD with results STAT Result Comment: @NOT NEEDED BY ROLANR2 HOUSING QUALITY STANDARD INSPECTOR Performed By: #### L 500.2500 ####[facility] [address] [place], [address] GAP Normal 5-15 [facility] Comment on above: Order Comment: Call MD with results STAT Result Comment: @NOT NEEDED BY TMPETRONAR2 HOUSING QUALITY STANDARD INSPECTOR Performed By: #### L 500.2500 ####[facility] [address] [place], [address] GLU Normal 74-106 [facility] Comment on above: Order Comment: Call MD with results STAT Result Comment: @NOT NEEDED BY TMPETRONAR2 HOUSING QUALITY STANDARD INSPECTOR Performed By: #### L 500.2500 ####[facility] [address] [place], [address] Potassium Normal 3.5-5.1 [facility] Comment on above: Order Comment: Call MD with results STAT Result Comment: @NOT NEEDED BY TMPETRONAR2 HOUSING QUALITY STANDARD INSPECTOR Performed By: #### L 500.2500 ####[facility] [address] [place], [address] Basic Metabolic Profile (BMP) Normal 136-145 [facility] Comment on above: Order Comment: Call MD with results STAT Result Comment: @NOT NEEDED BY ROLANR2 HOUSING QUALITY STANDARD INSPECTOR Performed By: #### L 500.2500 ####[facility] [address] [place], [address] BUN Normal 7-18 [facility] Comment on above: Order Comment: Call MD with results STAT Result Comment: @NOT NEEDED BY TMPETRONAR2 HOUSING QUALITY STANDARD INSPECTOR Performed By: #### L 500.2500 ####[facility] [address] [place], [address] BUN/CRE Normal 10-20 [facility] Comment on above: Order Comment: Call MD with results STAT Result Comment: @NOT NEEDED BY ROLANR2 HOUSING QUALITY STANDARD INSPECTOR Performed By: #### L 500.2500 ####[facility] [address] [place], [address] CA,Total Normal 8.5-10.1 [facility] Comment on above: Order Comment: Call MD with results STAT Result Comment: @NOT NEEDED BY ROLANR2 HOUSING QUALITY STANDARD INSPECTOR Performed By: #### L 500.2500 ####[facility] [address] [place], [address] CL Normal 98-107 [facility] Comment on above: Order Comment: Call MD with results STAT Result Comment: @NOT NEEDED BY PET[employer]AR2 HOUSING QUALITY STANDARD INSPECTOR Performed By: #### L 500.2500 ####[facility] [address] [place], [address] CO2 Normal 21.0-32.0 [facility] Comment on above: Order Comment: Call MD with results STAT Result Comment: @NOT NEEDED BY ROLANR2 HOUSING QUALITY STANDARD INSPECTOR Performed By: #### L 500.2500 ####[facility] [address] [place], [address] CREAT,SERUM Normal 0.55-1.02 [facility] Comment on above: Order Comment: Call with results STAT Result Comment: @NOT NEEDED BY ROLANR2 HOUSING QUALITY STANDARD INSPECTOR Performed By: #### L 500.2500 ####[facility] [address] [place], [address] EST GFR Normal >60 [facility] Comment on above: Order Comment: Call with results STAT Result Comment: @NOT NEEDED BY ROLANR2 HOUSING QUALITY STANDARD INSPECTOR Performed By: #### L 500.2500 ####[facility] [address] [place], [address] EST GFR - AA Normal >60 [facility] Comment on above: Order Comment: Call MD with results STAT Result Comment: @NOT NEEDED BY PET[employer]AR2 HOUSING QUALITY STANDARD INSPECTOR Performed By: #### L 500.2500 ####[facility] [address] [place], [address] GAP Normal 5-15 [facility] Comment on above: Order Comment: Call MD with results STAT Result Comment: @NOT NEEDED BY [facility] HOUSING QUALITY STANDARD INSPECTOR Performed By: #### L 500.2500 ####[facility] [address] [place], [address] GLU Normal 74-106 [facility] Comment on above: Order Comment: Call MD with results STAT Result Comment: @NOT NEEDED BY TMPETRONAR2 HOUSING QUALITY STANDARD INSPECTOR Performed By: #### L 500.2500 ####[facility] [address] [place], [address] Potassium Normal 3.5-5.1 [facility] Comment on above: Order Comment: Call MD with results STAT Result Comment: @NOT NEEDED BY PETRONAR2 HOUSING QUALITY STANDARD INSPECTOR Performed By: #### L 500.2500 ####[facility] [address] [place], [address] Basic Metabolic Profile (BMP) Normal 136-145 [facility] Comment on above: Order Comment: Call MD with results STAT Result Comment: @NOT NEEDED BY [facility] HOUSING QUALITY STANDARD INSPECTOR Performed By: #### L 500.2500 ####[facility] [address] [place], [address] BUN/CRE 11.7 RATIO Normal 10-20 [facility] Comment on above: Order Comment: Call MD with results STAT Performed By: #### L 500.2500 ####[facility] [address] [place], [address] CA,Total 7.7 mg/dL Low 8.5-10.1 [facility] Comment on above: Order Comment: Call MD with results STAT Performed By: #### L 500.2500 ####[facility] [address] [place], [address] Chloride [Moles/Vol] 116 mmol/L High 98-107 [facility] Comment on above: Order Comment: Call MD with results STAT Performed By: #### L 500.2500 ####[facility] [address] [place], [address] CO2 [Moles/Vol] 21.0 mmol/L Normal 21.0-32.0 [facility] Comment on above: Order Comment: Call MD with results STAT Performed By: #### L 500.2500 ####[facility] [address] [place], [address] Creatinine [Mass/Vol] 0.68 mg/dL Normal 0.55-1.02 [facility] Comment on above: Order Comment: Call MD with results STAT Result Comment: The validity of the calculated GFR GFRAA in patients over70 years has not been determined. Clinical correlation isessential. Performed By: #### L 500.2500 ####[facility] [address] [place], [address] ECRCL 126.42 ml/min Normal [facility] Comment on above: Order Comment: Call MD with results STAT Performed By: #### L 500.2500 ####[facility] [address] [place], [address] EST GFR - AA 130 mL/min Normal >60 [facility] Comment on above: Order Comment: Call MD with results STAT Result Comment: Afri can Cuban GFR Calc Performed By: #### L 500.2500 ####[facility] [address] [place], [address] GAP 5 Normal 5-15 [facility] Comment on above: Order Comment: Call MD with results STAT Performed By: #### L 500.2500 ####[facility] [address] [place], [address] GFR/1.73 sq M.predicted among non-blacks MDRD (S/P/Bld) [Vol rate/Area] 107 mL/min/{1.73_m2} Normal >60 [facility] Comment on above: Order Comment: Call MD with results STAT Result Comment: Non- GFR Calc Performed By: #### L 500.2500 ####[facility] [address] [place], [address] Glucose [Mass/Vol] 116 mg/dL High 74-106 [facility] Comment on above: Order Comment: Call MD with results STAT Result Comment: Fast ing Glucose result from 100 to 125 mg/dLsuggests IMPAIRED HOMEOSTASIS per A.D.A. criteria. Performed By: #### L 500.2500 ####[facility] [address] [place], [address] Potassium [Moles/Vol] 3.8 mmol/L Normal 3.5-5.1 [facility] Comment on above: Order Comment: Call MD with results STAT Performed By: #### L 500.2500 ####[facility] [address] [place], [address] Sodium [Moles/Vol] 141 mmol/L Normal 136-145 [facility] Comment on above: Order Comment: Call MD with results STAT Performed By: #### L 500.2500 ####[facility] [address] [place], [address] Urea nitrogen [Mass/Vol] 8 mg/dL Normal 7-18 [facility] Comment on above: Order Comment: Call MD with results STAT Performed By: #### L 500.2500 ####[facility] [address] [place], [address] BUN Normal 7-18 [facility] Comment on above: Order Comment: Call MD with results STAT Result Comment: NO S PECIMEN DRAWN Performed By: #### L 500.2500 ####[facility] [address] [place], [address] BUN/CRE Normal 10-20 [facility] Comment on above: Order Comment: Call MD with results STAT Result Comment: NO S PECIMEN DRAWN Performed By: #### L 500.2500 ####[facility] [address] [place], [address] CA,Total Normal 8.5-10.1 [facility] Comment on above: Order Comment: Call MD with results STAT Result Comment: NO S PECIMEN DRAWN Performed By: #### L 500.2500 ####[facility] [address] [place], [address] CL Normal 98-107 [facility] Comment on above: Order Comment: Call MD with results STAT Result Comment: NO S PECIMEN DRAWN Performed By: #### L 500.2500 ####[facility] [address] [place], [address] CO2 Normal 21.0-32.0 [facility] Comment on above: Order Comment: Call MD with results STAT Result Comment: NO S PECIMEN DRAWN Performed By: #### L 500.2500 ####[facility] [address] [place], [address] CREAT,SERUM Normal 0.55-1.02 [facility] Comment on above: Order Comment: Call MD with results STAT Result Comment: NO S PECIMEN DRAWN Performed By: #### L 500.2500 ####[facility] [address] [place], [address] EST GFR Normal >60 [facility] Comment on above: Order Comment: Call MD with results STAT Result Comment: NO S PECIMEN DRAWN Performed By: #### L 500.2500 ####[facility] [address] [place], [address] EST GFR - AA Normal >60 [facility] Comment on above: Order Comment: Call MD with results STAT Result Comment: NO S PECIMEN DRAWN Performed By: #### L 500.2500 ####[facility] [address] [place], [address] GAP Normal 5-15 [facility] Comment on above: Order Comment: Call MD with results STAT Result Comment: NO S PECIMEN DRAWN Performed By: #### L 500.2500 ####[facility] [address] [place], [address] GLU Normal 74-106 [facility] Comment on above: Order Comment: Call MD with results STAT Result Comment: NO S PECIMEN DRAWN Performed By: #### L 500.2500 ####[facility] [address] [place], [address] Potassium Normal 3.5-5.1 [facility] Comment on above: Order Comment: Call MD with results STAT Result Comment: NO S PECIMEN DRAWN Performed By: #### L 500.2500 ####[facility] [address] [place], [address] Basic Metabolic Profile (BMP) Normal 136-145 [facility] Comment on above: Order Comment: Call MD with results STAT Result Comment: NO S PECIMEN DRAWN Performed By: #### L 500.2500 ####[facility] [address] [place], [address] BUN Normal 7-18 [facility] Comment on above: Order Comment: Call MD with results STAT Result Comment: NO S PECIMEN DRAWN Performed By: #### L 500.2500, L501.9985 ####[facility] [address] [place], [address] BUN/CRE Normal 10-20 [facility] Comment on above: Order Comment: Call MD with results STAT Result Comment: NO S PECIMEN DRAWN Performed By: #### L 500.2500, L501.9985 ####[facility] [address] [place], [address] CA,Total Normal 8.5-10.1 [facility] Comment on above: Order Comment: Call MD with results STAT Result Comment: NO S PECIMEN DRAWN Performed By: #### L 500.2500, L501.9985 ####[facility] [address] [place], [address] CL Normal 98-107 [facility] Comment on above: Order Comment: Call MD with results STAT Result Comment: NO S PECIMEN DRAWN Performed By: #### L 500.2500, L501.9985 ####[facility] [address] [place], [address] CO2 Normal 21.0-32.0 [facility] Comment on above: Order Comment: Call MD with results STAT Result Comment: NO S PECIMEN DRAWN Performed By: #### L 500.2500, L501.9985 ####[facility] [address] [place], [address] CREAT,SERUM Normal 0.55-1.02 [facility] Comment on above: Order Comment: Call MD with results STAT Result Comment: NO S PECIMEN DRAWN Performed By: #### L 500.2500, L501.9985 ####[facility] [address] [place], [address] EST GFR Normal >60 [facility] Comment on above: Order Comment: Call MD with results STAT Result Comment: NO S PECIMEN DRAWN Performed By: #### L 500.2500, L501.9985 ####[facility] [address] [place], [address] EST GFR - AA Normal >60 [facility] Comment on above: Order Comment: Call MD with results STAT Result Comment: NO S PECIMEN DRAWN Performed By: #### L 500.2500, L501.9985 ####[facility] [address] [place], [address] GAP Normal 5-15 [facility] Comment on above: Order Comment: Call MD with results STAT Result Comment: NO S PECIMEN DRAWN Performed By: #### L 500.2500, L501.9985 ####[facility] [address] [place], [address] GLU Normal 74-106 [facility] Comment on above: Order Comment: Call MD with results STAT Result Comment: NO S PECIMEN DRAWN Performed By: #### L 500.2500, L501.9985 ####[facility] [address] [place], [address] Potassium Normal 3.5-5.1 [facility] [facility] Comment on above: Order Comment: Call MD with results STAT Result Comment: NO S PECIMEN DRAWN Performed By: #### L 500.2500, L501.9985 ####[facility] [address] [place], [address] Basic Metabolic Profile (BMP) Normal 136-145 [facility] Comment on above: Order Comment: Call MD with results STAT Result Comment: NO S PECIMEN DRAWN Performed By: #### L 500.2500, L501.9985 ####[facility] [address] [place], [address] BUN/CRE 16.6 RATIO Normal 10-20 [facility] Comment on above: Performed By: #### L 100.0100, L503.6005, L700.6800, L501.6900, L500.3400, L501.5200, L501.2450, L500.2500 ####[facility] [address] [place], [address] CA,Total 8.9 mg/dL Normal 8.5-10.1 [facility] Comment on above: Performed By: #### L 100.0100, L503.6005, L700.6800, L501.6900, L500.3400, L501.5200, L501.2450, L500.2500 ####[facility] [address] [place], [address] Chloride [Moles/Vol] 107 mmol/L Normal 98-107 [facility] Comment on above: Performed By: #### L 100.0100, L503.6005, L700.6800, L501.6900, L500.3400, L501.5200, L501.2450, L500.2500 ####[facility] [address] [place], [place], [phone](674) CO2 [Moles/Vol] 17.0 mmol/L Low 21.0-32.0 [facility] Comment on above: Performed By: #### L 100.0100, L503.6005, L700.6800, L501.6900, L500.3400, L501.5200, L501.2450, L500.2500 ####[facility] [address] [place] [id number] Creatinine [Mass/Vol] 0.84 mg/dL Normal 0.55-1.02 [facility] Comment on above: Result Comment: The validity of the calculated GFR GFRAA in patients over70 years has not been determined. Clinical correlation isessential. Performed By: #### L 100.0100, L503.6005, L700.6800, L501.6900, L500.3400, L501.5200, L501.2450, L500.2500 ####[facility] [address] [place], [address] ECRCL 102.34 ml/min Normal [facility] Comment on above: Performed By: #### L 100.0100, L503.6005, L700.6800, L501.6900, L500.3400, L501.5200, L501.2450, L500.2500 ####[facility] [address] [place], [address] EST GFR - AA 102 mL/min Normal >60 [facility] Comment on above: Result Comment: Afri can Cuban GFR Calc Performed By: #### L 100.0100, L503.6005, L700.6800, L501.6900, L500.3400, L501.5200, L501.2450, L500.2500 ####[facility] [address] [place], [place], [id number] GAP 14 Normal 5-15 [facility] Comment on above: Performed By: #### L 100.0100, L503.6005, L700.6800, L501.6900, L500.3400, L501.5200, L501.2450, L500.2500 ####[facility] [address] [place], [address] GFR/1.73 sq M.predicted among non-blacks MDRD (S/P/Bld) [Vol rate/Area] 84 mL/min/{1.73_m2} Normal >60 [facility] Comment on above: Result Comment: Non- GFR Calc Performed By: #### L 100.0100, L503.6005, L700.6800, L501.6900, L500.3400, L501.5200, L501.2450, L500.2500 ####[facility] [address] [place], [place], [id number] Glucose [Mass/Vol] 253 mg/dL High 74-106 [facility] Comment on above: Result Comment: Gluc ose result greater than or equal to 200 mg/dLsuggests DIABETES MELLITUS per A.D.A. criteria. Performed By: #### L 100.0100, L503.6005, L700.6800, L501.6900, L500.3400, L501.5200, L501.2450, L500.2500 ####[facility] [address] [place], [place], [id number] Potassium [Moles/Vol] 3.4 mmol/L Low 3.5-5.1 [facility] Comment on above: Performed By: #### L 100.0100, L503.6005, L700.6800, L501.6900, L500.3400, L501.5200, L501.2450, L500.2500 ####[facility] [address] [place], [address] Sodium [Moles/Vol] 139 mmol/L Normal 136-145 [facility] Comment on above: Performed By: #### L 100.0100, L503.6005, L700.6800, L501.6900, L500.3400, L501.5200, L501.2450, L500.2500 ####[facility] [address] [place], [address] Urea nitrogen [Mass/Vol] 14 mg/dL Normal 7-18 [facility] Comment on above: Performed By: #### L 100.0100, L503.6005, L700.6800, L501.6900, L500.3400, L501.5200, L501.2450, L500.2500 ####[facility] [address] [place], [address] Bedside Glucoseon 08-02-2024 FINGERSTICK GLU 246 mg/dL High 74-106 [facility] Comment on above: Result Comment: EDGAR GEMENT OF PATIENT CARE PER NURSING PROTOCOL Performed By: #### L 501.080 ####[facility] [address] [place], [address] FINGERSTICK GLU 77 mg/dL Normal 74-106 [facility] Comment on above: Result Comment: EDGAR GEMENT OF PATIENT CARE PER NURSING PROTOCOL Performed By: #### L 501.080 ####[facility] [address] [place], [address] FINGERSTICK GLU 90 mg/dL Normal 74-106 [facility] Comment on above: Result Comment: EDGAR GEMENT OF PATIENT CARE PER NURSING PROTOCOL Performed By: #### L 501.080 ####[facility] [address] [place], [address] FINGERSTICK GLU 163 mg/dL High 74-106 [facility] Comment on above: Result Comment: EDGAR GEMENT OF PATIENT CARE PER NURSING PROTOCOL Performed By: #### L 501.080 ####[facility] [address] [place], [address] FINGERSTICK GLU 102 mg/dL Normal 74-106 [facility] Comment on above: Result Comment: EDGAR GEMENT OF PATIENT CARE PER NURSING PROTOCOL Performed By: #### L 501.080 ####[facility] [address] [place], [address] FINGERSTICK GLU 147 mg/dL High 74-106 [facility] Comment on above: Result Comment: EDGAR GEMENT OF PATIENT CARE PER NURSING PROTOCOL Performed By: #### L 501.080 ####[facility] [address] [place], [address] FINGERSTICK GLU 83 mg/dL Normal 74-106 [facility] Comment on above: Result Comment: EDGAR GEMENT OF PATIENT CARE PER NURSING PROTOCOL Performed By: #### L 501.080 ####[facility] [address] [place], [address] FINGERSTICK GLU 121 mg/dL High 74-106 [facility] Comment on above: Result Comment: EDGAR GEMENT OF PATIENT CARE PER NURSING PROTOCOL Performed By: #### L 501.080 ####[facility] [address] [place], [address] FINGERSTICK GLU 95 mg/dL Normal 74-106 [facility] Comment on above: Result Comment: EDGAR GEMENT OF PATIENT CARE PER NURSING PROTOCOL Performed By: #### L 501.080 ####[facility] [address] [place], [address] FINGERSTICK GLU 123 mg/dL High 74-106 [facility] Comment on above: Result Comment: EDGAR GEMENT OF PATIENT CARE PER NURSING PROTOCOL Performed By: #### L 501.080 ####[facility] [address] [place], [address] FINGERSTICK GLU 147 mg/dL High 74-106 [facility] Comment on above: Result Comment: EDGAR GEMENT OF PATIENT CARE PER NURSING PROTOCOL Performed By: #### L 501.080 ####[facility] [address] [place], [address] FINGERSTICK GLU 263 mg/dL High 74-106 [facility] Comment on above: Result Comment: EDGAR GEMENT OF PATIENT CARE PER NURSING PROTOCOL Performed By: #### L 501.080 ####[facility] [address] [place], [address] FINGERSTICK GLU 251 mg/dL High 74-106 [facility] Comment on above: Result Comment: EDGAR GEMENT OF PATIENT CARE PER NURSING PROTOCOL Performed By: #### L 501.080 ####[facility] [address] [place], [address] CBC W/Diff, Automatedon 12-0 Absolute Lymph 1.00 X10 3/uL Normal 0.83-4.51 [facility] Comment on above: Performed By: #### L 100.0100, L503.6005, L700.6800, L501.6900, L500.3400, L501.5200, L501.2450, L500.2500 ####[facility] [address] [place], [address] Absolute Neut 11.9 X10 3/uL High 2.0-7.7 [facility] Comment on above: Performed By: #### L 100.0100, L503.6005, L700.6800, L501.6900, L500.3400, L501.5200, L501.2450, L500.2500 ####[facility] [address] [place], [address] Basophils/100 WBC (Bld) 0.2 % Normal 0-1 [facility] Comment on above: Performed By: #### L 100.0100, L503.6005, L700.6800, L501.6900, L500.3400, L501.5200, L501.2450, L500.2500 ####[facility] [address] [place], [address] Eosinophils/100 WBC (Bld) 0.0 % Normal 0-5 [facility] Comment on above: Performed By: #### L 100.0100, L503.6005, L700.6800, L501.6900, L500.3400, L501.5200, L501.2450, L500.2500 ####[facility] [address] [place], [address] Erythrocyte distribution width (RBC) [Ratio] 12.3 % Normal 11.6-14.6 [facility] Comment on above: Performed By: #### L 100.0100, L503.6005, L700.6800, L501.6900, L500.3400, L501.5200, L501.2450, L500.2500 ####[facility] [address] [place], [address] Hematocrit (Bld) [Volume fraction] 38.3 % Normal 37-47 [facility] Comment on above: Performed By: #### L 100.0100, L503.6005, L700.6800, L501.6900, L500.3400, L501.5200, L501.2450, L500.2500 ####[facility] [address] [place], [address] Hemoglobin (Bld) [Mass/Vol] 13.0 g/dL Normal 12.0-15.0 [facility] Comment on above: Performed By: #### L 100.0100, L503.6005, L700.6800, L501.6900, L500.3400, L501.5200, L501.2450, L500.2500 ####[facility] [address] [place], [address] IG% 0.600 Normal 0.0-0.9 [facility] Comment on above: Result Comment: IG% - Immature Granulocytes (promyelocytes, myelocytes andmetamyelocytes) > 1% indicates that a LEFT SHIFT is Present. Performed By: #### L 100.0100, L503.6005, L700.6800, L501.6900, L500.3400, L501.5200, L501.2450, L500.2500 ####[facility] [address], [address] Lymphocytes/100 WBC (Bld) 7.5 % Low 19-41 [facility] Comment on above: Performed By: #### L 100.0100, L503.6005, L700.6800, L501.6900, L500.3400, L501.5200, L501.2450, L500.2500 ####[facility] [address], [address] MCH (RBC) [Entitic mass] 29.7 pg Normal 27.0-32.0 [facility] Comment on above: Performed By: #### L 100.0100, L503.6005, L700.6800, L501.6900, L500.3400, L501.5200, L501.2450, L500.2500 ####[facility] [address] [place], [address] MCHC (RBC) [Mass/Vol] 33.9 g/dL Normal 32-36 [facility] Comment on above: Performed By: #### L 100.0100, L503.6005, L700.6800, L501.6900, L500.3400, L501.5200, L501.2450, L500.2500 ####[facility] [address] [place], [address] MCV (RBC) [Entitic vol] 87.6 fL Normal 81-99 [facility] Comment on above: Performed By: #### L 100.0100, L503.6005, L700.6800, L501.6900, L500.3400, L501.5200, L501.2450, L500.2500 ####[facility] [address] [place], [address] Monocytes/100 WBC (Bld) 2.8 % Normal 0-10 [facility] Comment on above: Performed By: #### L 100.0100, L503.6005, L700.6800, L501.6900, L500.3400, L501.5200, L501.2450, L500.2500 ####[facility] [address] [place], [address] Neutrophils/100 WBC (Bld) 88.9 % High 47-70 [facility] Comment on above: Performed By: #### L 100.0100, L503.6005, L700.6800, L501.6900, L500.3400, L501.5200, L501.2450, L500.2500 ####[facility] [address] [place], [address] Nucleated RBC (Bld) [#/Vol] 0 10*3/uL Normal 0-5 [facility] Comment on above: Performed By: #### L 100.0100, L503.6005, L700.6800, L501.6900, L500.3400, L501.5200, L501.2450, L500.2500 ####[facility] [address] [place], [address] Platelet mean volume (Bld) [Entitic vol] 13.0 fL High 6.2-12.0 [facility] Comment on above: Performed By: #### L 100.0100, L503.6005, L700.6800, L501.6900, L500.3400, L501.5200, L501.2450, L500.2500 ####[facility] [address] [place], [address] Platelets (Bld) [#/Vol] 169 10*3/uL Normal 150-450 [facility] Comment on above: Performed By: #### L 100.0100, L503.6005, L700.6800, L501.6900, L500.3400, L501.5200, L501.2450, L500.2500 ####[facility] [address] [place], [place], [phone] RBC (Bld) [#/Vol] 4.37 10*6/uL Normal 4.2-5.4 [facility] Comment on above: Performed By: #### L 100.0100, L503.6005, L700.6800, L501.6900, L500.3400, L501.5200, L501.2450, L500.2500 ####[facility] [address] [place], [address] RDW SD 39.6 fl Normal 35.1-43.9 [facility] Comment on above: Performed By: #### L 100.0100, L503.6005, L700.6800, L501.6900, L500.3400, L501.5200, L501.2450, L500.2500 ####[facility] [address] [place], [address] WBC (Bld) [#/Vol] 13.4 10*3/uL High 4.4-11.0 [facility] Comment on above: Performed By: #### L 100.0100, L503.6005, L700.6800, L501.6900, L500.3400, L501.5200, L501.2450, L500.2500 ####[facility] [address] [place], [address] Emergency Department Summary on 08-02-2024 Emergency Department Summary Normal [facility] H AND P Exam - Hospitaliston 08-02-2024 H&P Exam - Hospitalist Normal [facility] Hemoglobin A1con 08-02-2024 HbA1c (Bld) [Mass fraction] 7.9 % High 3.8-5.6 [facility] Comment on above: Result Comment: Norm al < 5.7 % Prediabetic 5.7 - 6.4 % Diabetic >or= 6.5 % Please note range changes. Performed By: #### L 500.2500, L501.9985 ####[facility] [address] [place], [address] Kidney and Bladderon 024 Kidney and Bladder Normal [facility] Lactic Acidon 08-02-2024 Lactate [Moles/Vol] 1.4 mmol/L Normal 0.4-1.9 [facility] Comment on above: Performed By: #### L 503.6005 ####[facility] [address] [place], [address] Lactate [Moles/Vol] 0.9 mmol/L Normal 0.4-1.9 [facility] Comment on above: Order Comment: Y Performed By: #### L 503.6005 ####[facility] [address] [place], [address] Lactate [Moles/Vol] 2.2 mmol/L Invalid Interpretation Code 0.4-1.9 [facility] Comment on above: Order Comment: Y Result Comment: Crit ical Result(s) Called at: 01:06:13 08/02/2024 by:Jhoana Martínez lforrestResults read back by same. Performed By: #### L 100.0100, L503.6005, L700.6800, L501.6900, L500.3400, L501.5200, L501.2450, L500.2500 ####[facility] [address] [place], [address] Lipaseon 08-02-2024 Lipase [Catalytic activity/Vol] U/L Low 13-75 [facility] Comment on above: Result Comment: Sulma schmitz note:LIPASE revised reference range effective 22.New Lipase methodology. Expected to produce lower valuesthan the previous assay method.NEW Reference Range: 13 - 75 U/L Performed By: #### L 100.0100, L503.6005, L700.6800, L501.6900, L500.3400, L501.5200, L501.2450, L500.2500 ####[facility] [address] [place], [address] Liver Profileon 08-02-2024 Albumin [Mass/Vol] 4.1 g/dL Normal 3.2-5.0 [facility] Comment on above: Performed By: #### L 100.0100, L503.6005, L700.6800, L501.6900, L500.3400, L501.5200, L501.2450, L500.2500 ####[facility] [address] [place], [address] ALK P 78 U/L Normal 45-117 [facility] Comment on above: Performed By: #### L 100.0100, L503.6005, L700.6800, L501.6900, L500.3400, L501.5200, L501.2450, L500.2500 ####[facility] [address] [place], [address] ALT [Catalytic activity/Vol] 15 U/L Normal 13-56 [facility] Comment on above: Performed By: #### L 100.0100, L503.6005, L700.6800, L501.6900, L500.3400, L501.5200, L501.2450, L500.2500 ####[facility] [address] [place], [address] AST [Catalytic activity/Vol] 13 U/L Low 15-37 [facility] Comment on above: Performed By: #### L 100.0100, L503.6005, L700.6800, L501.6900, L500.3400, L501.5200, L501.2450, L500.2500 ####[facility] [address] [place], [address] Bilirubin [Mass/Vol] 1.20 mg/dL High 0.20-1.00 [facility] Comment on above: Result Comment: For patients on eltrombopag therapy, use of Dimension [place] TBIL is not recommended. Performed By: #### L 100.0100, L503.6005, L700.6800, L501.6900, L500.3400, L501.5200, L501.2450, L500.2500 ####[facility] [address] [place], [address] Bilirubin.direct [Mass/Vol] 0.38 mg/dL High 0.00-0.30 [facility] Comment on above: Performed By: #### L 100.0100, L503.6005, L700.6800, L501.6900, L500.3400, L501.5200, L501.2450, L500.2500 ####[facility] [address] [place], [address] Globulin (S) [Mass/Vol] 3.3 g/dL Normal 2.2-4.2 [facility] Comment on above: Performed By: #### L 100.0100, L503.6005, L700.6800, L501.6900, L500.3400, L501.5200, L501.2450, L500.2500 ####[facility] [address] [place], [address] T PROT 7.4 g/dL Normal 6.4-8.2 [facility] Comment on above: Performed By: #### L 100.0100, L503.6005, L700.6800, L501.6900, L500.3400, L501.5200, L501.2450, L500.2500 ####[facility] [address] [place], [address] Magnesiumon 08-02-2024 Magnesium [Mass/Vol] 2.5 mg/dL Normal 1.6-2.6 [facility] Comment on above: Performed By: #### L 501.5200, L501.2300 ####[facility] [address] [place], [address] Magnesium [Mass/Vol] 1.5 mg/dL Low 1.6-2.6 [facility] Comment on above: Performed By: #### L 100.0100, L503.6005, L700.6800, L501.6900, L500.3400, L501.5200, L501.2450, L500.2500 ####[facility] [address] [place], [address] Phosphoruson 08-02-2024 Phosphate [Mass/Vol] 2.2 mg/dL Low 2.5-4.9 [facility] Comment on above: Performed By: #### L 501.5200, L501.2300 ####[facility] [address] [place], [address] ,Serum,hCG Quali.on 08-02-2024 HCG, SERUM QUAL Negative Normal [facility] Comment on above: Performed By: #### L 100.0100, L503.6005, L700.6800, L501.6900, L500.3400, L501.5200, L501.2450, L500.2500 ####[facility] [address] [place], [address] Urinalysis, Completeon 08-02 BACTERIA 1+ /hpf Normal None Seen [facility] Comment on above: Order Comment: CLEAN CATCH Performed By: #### L 400.0001 ####[facility] [address] [place], [address] EPI,SQUAMOUS 0-5 SEEN Normal 5-10 [facility] Comment on above: Order Comment: CLEAN CATCH Performed By: #### L 400.0001 ####[facility] [address] [place], [address] WBC 0-5 SEEN Normal 0-5 [facility] Comment on above: Order Comment: CLEAN CATCH Performed By: #### L 400.0001 ####[facility] [address] [place], [address] Mucus Ql (Urine sed) 0 SEEN Normal [facility] Comment on above: Order Comment: CLEAN CATCH Performed By: #### L 400.0001 ####[facility] [address] [place], [address] RBC 0 SEEN Normal 0-5 [facility] Comment on above: Order Comment: CLEAN CATCH Performed By: #### L 400.0001 ####[facility] [address] [place], [address] Urine Drug Screen (VISTA)on 08-02-2024 AMPHETAMINES Negative Normal <1000 ng/mL [facility] Comment on above: Performed By: #### L 505.5000 ####[facility] [address] [place], [address] BARBITIURATES Negative Normal < 200 ng/mL [facility] Comment on above: Performed By: #### L 505.5000 ####[facility] [address] [place], [address] BENZODIAZIPINE Negative Normal < 200 ng/mL [facility] Comment on above: Performed By: #### L 505.5000 ####[facility] [address] [place], [address] COCAINE Negative Normal < 300 ng/mL [facility] Comment on above: Performed By: #### L 505.5000 ####[facility] [address] [place] [id number] ECSTACY Negative Normal < 500 ng/mL [facility] Comment on above: Performed By: #### L 505.5000 ####[facility] [address] [place] [id number] METHADONE Negative Normal < 300 ng/mL [facility] Comment on above: Performed By: #### L 505.5000 ####[facility] [address] [place] [address] OPIATES Negative Normal < 300 ng/mL [facility] Comment on above: Performed By: #### L 505.5000 ####[facility] [address] [place] [address] PCP Negative Normal < 25 ng/mL [facility] Comment on above: Performed By: #### L 505.5000 ####[facility] [address] [place], [address] THC Positive Abnormal < 50 ng/mL [facility] Comment on above: Performed By: #### L 505.5000 ####[facility] [address] [place], [phone] VISTA UDS PH 5 Normal [facility] Comment on above: Performed By: #### L 505.5000 ####[facility] [address] [place], [address] Venous Blood Gason 4 Blood Gas Type ISABELLE Normal [facility] Comment on above: Performed By: #### L 9000.0810 ####[facility] [address] [place], [address] CO2 [Moles/Vol] 17 mmol/L Low 23-33 [facility] Comment on above: Performed By: #### L 9000.0810 ####[facility] [address] [place], [address] HCO3 (Bld) [Moles/Vol] 16 mmol/L Low 22-26 [facility] Comment on above: Performed By: #### L 0.0810 ####[facility] [address] [place], [address] O2 Delivery Dev Room Air [facility] Comment on above: Performed By: #### L 9000.0810 ####[facility] [address] [place], [address] SITE Not entered [facility] Comment on above: Performed By: #### L 9000.0810 ####[facility] [address] [place], [address] VBG BE -9 mmol/L Low -1.0-3.5 [facility] Comment on above: Performed By: #### L 9000.0810 ####[facility] [address] [place], [address] VBG pCO2 28.0 mmHg Low 41-51 [facility] Comment on above: Performed By: #### L 9000.0810 ####[facility] [address] [place], [address] VBG pH 7.38 Normal 7.32-7.42 [facility] Comment on above: Performed By: #### L 9000.0810 ####[facility] [address] [place], [address] VBG PO2 46 mmHg High 25-40 [facility] Comment on above: Performed By: #### L 9000.0810 ####[facility] [address] [place], [address] VBG SO2 82 High 50-70 [facility] Comment on above: Performed By: #### L 9000.0810 ####[facility] [address] [place], [address] Chest PA and Lateralon 08-01 Chest PA and Lateral Normal [facility] Emergency Department Summary on 08-01-2024 Emergency Department Summary Normal [facility] CNNURSEon 07-23-2024 CNNURSE Nurse Visit (ENDIMT) KATHLEEN VILLA ([id number]) 1995 F T Date Time Provider Department 07/23/24 9:00 AM VAMSI CARSON During your visit today, we recorded the following information about you: Vamsi Carson RN 07/23/2024 9:04 AM Signed DIABETES CARE AND EDUCATION VISIT Location: [place] Type of visit: In person individual PATIENT'S [...] TIME: 8:47 AM Referring Provider: KVNG LEWIS [[id number]] Allergies As of Date: 07/23/2024 Noted Allergy [...] Date Reviewed: 07/19/2024 Reviewed by: Jessica Guerrero APRN.PIE CRIMPING MACHINE OPERATOR - Fully Assessed Visit Diagnoses:Type 1 diabetes mellitus with hyperglycemia, with long-term current use of insulin (HCC) [E10.65] Insulin pump status [Z96.41] Order(s):CONSULT TO DIABETES EDUCATION DSME [[id number]] Order #: [id number]: 2 Prescriptions as of 07/23/2024 - Acetone, [...] Units subcutaneously every 24 hours. - Insulin [place], Disposable, (PEN NEEDLE) 32 gauge x 5/32 [...] (post-traumatic stress disorder) [F43.10] 12/25/2012 DVT prophylaxis [GNT4667] 12/25/2012 09/04/2013 DISPOSITION AND FOLLOW-UP [V999.01] 12/25/2012 09/04/2013 HTN (hypertension) [I10] Hypertension in , antepartum [O16.9] 09/19/2013 01/08/2014 GBS (group B Streptococcus mesa (more content not included)... Normal [facility] Dipak 07-19-2024 GIOVANA Telephone (ENDOIN) KATHLEEN VILLA ([id number]) 1995 F CHT Date Time Provider Department 07/19/24 JESSICA GUERRERO During your visit today, we recorded the following information about you: Lisa Aguilar LPN 07/19/2024 3:45 PM Signed Jessica Guerrero APRN.FRIEDA Ashby She was able to get upgraded pump recently. I am sending her to [employer] and [employer] to start. She will need new supplies from [facility] including Guardian 4 CGM and supplies for [employer] 780 G. Jessica Guerrero APRN.PIE CRIMPING MACHINE OPERATOR Lisa Aguilar LPN 07/24/2024 2:00 PM Signed [facility] form for CGM /Pump completed and signed [...] Date Reviewed: 07/19/2024 Reviewed by: Jessica Guerrero APRN.PIE CRIMPING MACHINE OPERATOR - Fully Assessed Prescriptions as of 07/30/2024 [...] Units subcutaneously every 24 hours. 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 Normal [facility] C. trachomatis+N. gonorrhoea e DNA DANIEL+probe Ql (Unsp spec)on 07-10-2024 C. trachomatis rRNA DANIEL+probe Ql (Unsp spec) Negative Normal Negative for Chlamydia trachomatis by amplificaton [facility] Comment on above: Order Comment: Speci men Type: SWABOrdering Facility: [facility] Address: [address] [place] [address] Performed By: #### T RVAMP, 47159-5 ####[facility] LABCLIA [id number] [address] [place] N. gonorrhoeae rRNA DANIEL+probe Ql (Unsp spec) Negative Normal Negative for Neisseria gonorrhoeae by amplification [facility] Comment on above: Order Comment: Speci men Type: SWABOrdering Facility: [facility] Address: [address] [place] [address] Performed By: #### T RVAMP, 21412-7 ####[facility] LABCLIA [id number] [place] [address] [place] CNOVon 07-10-2024 CNOV Office Visit (OBGYWM ) KATHLEEN VILLA ([id number]) 1995 F CHT Date Time Provider Department 07/10/24 11:10 AM JASON PAREDES OBGYWMillicent During your visit today, we recorded the following information about you: Blood pressure Weight Height Last Period 77.6 kg 1.727 m 06/04/24 Jason Paredes [...] L2 SAB0 IAB0 Ectopic0 Multiple0 Live Births2 Commercial Credit Reviewer History LMP: 11/26/2022 (Exact Date), Having periods Age at Menarche: 12 Age at First : Age at Menopause: Commercial Credit Reviewer History Comments: Sexual Activity: Yes; Male Contraception: [...] discussed with the Patient or Patient's Authorized Mucker Cofferdam. As applicable, any other physician, advance practice provider, medical student, or other health professional student that will be observing or involved in the sensitive examination for educational or training purposes was discussed with the Patient or Authorized Mucker Cofferdam. The Patient or Authorized Mucker Cofferdam has agreed to proceed with the sensitive [...] external genitalia normal, normal Bartholin's glands, urethra, [place]'s glands, no vulvar lesions, no cervical lesions, good vaginal support, physiologic discharge present, normal appearing perineal body and perianal region BIMANUAL: uterus normal size, shape and consistency, no adnexal masses, and non-tender ASSESSMENT/PLAN: 1) Health maintenance:Bisexual Pap done with reflex H (more content not included)... Normal [facility] HCV RNA DANIEL+probe Qnon 07-10 HCV RNA DANIEL+probe Ql Not detected Normal Not detected [facility] Comment on above: Order Comment: Speci men Type: BLOOD SPECIMENOrdering Facility: [facility] Address: [address] [place] [address] Performed By: #### 1 1011-4 ####[facility] LABIA [id number] [place] [address] [place] HIGH RISK HUMAN PAPILLOMA DERECK (HPV), PCR FOR DETECTION AND GENOTYPINGon 07-10-2024 HPV 16 Ag Ql (Unsp spec) Not detected Normal Not detected [facility] Comment on above: Order Comment: Speci men Type: FLUID SPECIMENOrdering Facility: [facility] Address: [address] [place] [address] Performed By: #### H PVHRT ####[facility] [id number] [place] [address] [place] HPV 18 Ag Ql (Unsp spec) Not detected Normal Not detected [facility] Comment on above: Order Comment: Speci men Type: FLUID SPECIMENOrdering Facility: [facility] Address: [address] [place] [address] Performed By: #### H PVHRT ####[facility] [id number] [place] [address] [place] HPV 31+33+35+39+45+51+52+5 6+58+59+66+68 DNA ADNIEL+probe Ql (Cvx) Not detected Normal Not detected [facility] Comment on above: Order Comment: Speci men Type: FLUID SPECIMENOrdering Facility: [facility] Address: [address] [place] [address] Result Comment: High Risk HPV Other Type includes HPV types 31, 33, 35, 39, 45, 51, 52, 56, 58, 59, 66 and 68. Performed By: #### H PVHRT ####[facility] LABCLIA [id number] [place] [address] [place] HIV 1+2 Ab IA Qlon 4 HIV 1 and 2 Ab IA.rapid Nom (S/P/Bld) Normal [facility] Comment on above: Order Comment: Speci men Type: BLOOD SPECIMENOrdering Facility: [facility] Address: [address] [place] [address] Result Comment: Test not indicated. Performed By: #### 3 1201-7, 52570-6 ####[facility] LABCLIA [id number] [place] [address] [place] HIV 1+2 Ab+HIV1 p24 Ag IA Ql Non-Reactive Normal Nonreactive [facility] Comment on above: Order Comment: Speci men Type: BLOOD SPECIMENOrdering Facility: [facility] Address: [address] [place] [address] Performed By: #### 3 1201-7, 30529-0 ####[facility] LABCLIA [id number] [place] [address] [place] HIV immunoassay testing algorithm interpretation (S/P/Bld) [Interp] Normal [facility] Comment on above: Order Comment: Speci men Type: BLOOD SPECIMENOrdering Facility: [facility] Address: [address] [place] [address] Result Comment: No e vidence of HIV-1 or HIV-2 infection. Should recent infection be suspected, repeat testing may be considered 2-3 weeks after this draw. [place] Rev. Code 3701.243(E): This information has been [...] or diagnoses. Performed By: #### 3 1201-7, 86075-4 ####[facility] LABCLIA [id number] [address] [address] [place] PAP TESTon 07-10-2024 ADEQUACY Normal [facility] Comment on above: Order Comment: Speci men Type: FLUID SPECIMENOrdering Facility: [facility] Address: [address] [place] [address] Result Comment: Sati sfactory for interpretation. Limited cellularity. Performed By: #### L [id number] ####[facility] LABCLIA [id number] [place] [address] [place] CASE REPORT Normal [facility] Comment on above: Order Comment: Speci men Type: FLUID SPECIMENOrdering Facility: [facility] Address: [address] [place] [address] Result Comment: Gyne cologic Cytology Report Case: [id number] Authorizing Provider: Jason Paredes MD Collected: 07/10/2024 12:13 PM Ordering Location: OB/Gynecology Received: 07/10/2024 03:39 PM First Screen: Aramouni, Heather, CT, ASCP Specimen: Pap Test, ThinPrep, Cervix Performed By: #### L [id number] ####[facility] LABCLIA [id number] [place] [id number] [place] CLINICAL HISTORY, CYTOLOGY, EQUIPMENT OPERATOR Routine Exam Normal [facility] Comment on above: Order Comment: Speci men Type: FLUID SPECIMENOrdering Facility: [facility] Address: [address] [place] [address] Performed By: #### L [id number] ####[facility] LABCLIA [id number] [place] [address] [place] FINAL PERFORMING LAB Normal [facility] Comment on above: Order Comment: Speci men Type: FLUID SPECIMENOrdering Facility: [facility] Address: [address] [place] [address] Result Comment: Tech nical component, instructor military science screening performed at [facility], [address] [id number] CLIA# [id number] Diagnostic interpretation performed at [facility], [address] [place] [address] CLIA# [id number] Loss Prevention Lead: Brennen Holloway M.D. Performed By: #### L [id number] ####[facility] LABCLIA [id number] [place] [address] [place] INTERPRETATION, CYTOLOGY, EQUIPMENT OPERATOR Normal [facility] Comment on above: Order Comment: Speci men Type: FLUID SPECIMENOrdering Facility: [facility] Address: [address] [place] [address] Result Comment: Nega tive for intraepithelial lesion or malignancy. Performed By: #### L [id number] ####[facility] LABCLIA [id number] [place] [address] [place] [facility] 06/04/2024 Normal [facility] Comment on above: Order Comment: Speci men Type: FLUID SPECIMENOrdering Facility: [facility] Address: [address] [place] [address] Performed By: #### L [id number] ####[facility] LABCLIA [id number] [place] [address] [place] PAP DISCLAIMER COMMENT The Pap Smear is a screening test for cervical cancer. False negative results occur with all screening tests, emphasizing the need for rescreening at recommended intervals, and clinical correlation. Normal [facility] Comment on above: Order Comment: Speci men Type: FLUID SPECIMENOrdering Facility: [facility] Address: [address] [place] [address] Performed By: #### L [id number] ####[facility] LABCLIA [id number] [place] [id number] [place] PAP SILO FILLER COMMENT This specimen has be en analyzed by the [employer] System, an automated imaging and review system, which assists the laboratory in evaluating cells on ThinPrep Pap tests. Following automated imaging, selected cazares from every slide are reviewed by a instructor military science. Normal [facility] Comment on above: Order Comment: Speci men Type: FLUID SPECIMENOrdering Facility: [facility] Address: [address] [place] [address] Performed By: #### L [id number] ####[facility] [id number] [place] [address] [place] Reagin and Treponema pallidu m IgG and IgM [Interp]on 07-10-2024 T. pallidum IgG+IgM IA Ql (S) Non-Reactive Normal Nonreactive [facility] Comment on above: Order Comment: Speci men Type: BLOOD SPECIMENOrdering Facility: [facility] Address: [address] [place] [address] Performed By: #### 3 1201-7, 77225-4 ####[facility] [id number] [place] [address] [place] Reagin+T pallidum IgG+IgM Se rPl-Impon 07-10-2024 Reagin and Treponema pallidum IgG and IgM [Interp] Cannot exclude recent Treponemal infection if specimen collected within 7-10 days after appearance of suspect lesions or 2-3 weeks after an exposure. Clinical correlation is required. Normal [facility] Comment on above: Order Comment: Speci men Type: BLOOD SPECIMENOrdering Facility: [facility] Address: [address] [place] [address] Performed By: #### 3 1201-7, 48681-2 ####[facility] [id number] [place] [id number] [place] TRICHOMONAS VAGINALIS NAATon 07-10-2024 T. vaginalis DNA DANIEL+probe Ql (Unsp spec) Negative Normal Negative for Trichomonas vaginalis by amplification [facility] Comment on above: Order Comment: Speci men Type: SWABOrdering Facility: [facility] Address: [address] [place] [address] Performed By: #### T RVAMP, 59250-2 ####[facility] [id number] [place] [address] [place] TSH SerPl-aCncon 07-10-2024 TSH Qn 1.140 m[IU]/L Normal 0.270-4.200 [facility] Comment on above: Order Comment: Speci men Type: BLOOD SPECIMENOrdering Facility: [facility] Address: [address] [place] [address] Result Comment: If t he patient is , TSH reference range varies by gestational period: First Trimester (weeks 9-12): 0.180-2.990 mIU/L Second Trimester: 0.110-3.980 mIU/L Third Trimester: 0.480-4.710 mIU/L Kelvin Swain et al. A Practical Approach for the Verifications and Determination of Site- and Trimester-Specific Reference Intervals for Thyroid Function tests in . Thyroid, 2019:29:3:412-420. Dangelo Raya, et al. 2017 Guidelines of the [place] Thyroid Association for the Diagnosis and Management of Thyroid Disease during and the . Thyroid, 2017:27:3:315-389. Performed By: #### 3 016-3 ####[facility] [id number] [place] [address] [place] Dipak 06-24-2024 CNPN Telephone (INTMIN) KATHLEEN VILLA ([id number]) 1995 F CHT Date Time Provider Department 06/24/24 JESSICA GUERRERO [...] Insulin Lispro. [facility] Discussed with provider in office Please advise Jessica Guerrero APRN.FRIEDA 06/25/2024 1:58 PM Signed I recommend she sees model maker scale to review pump options- I am fine [...] to patient via phone. Patient verbalizes understanding. [employer] message sent for patients reference as requested. [...] every 24 hours.Disp: 38.7 mLRfl: 1 Insulin [place], Disposable, (PEN NEEDLE) 32 gauge x 5/32Inject [...] Units subcutaneously every 24 hours. - Insulin [place], Disposable, (PEN NEEDLE) 32 gauge x 5/32 [...] TEST STRIPS) (more content not included)... Normal [facility] 06-17-2024 CNPN Telephone (QAMAR) KATHLEEN VILLA ([id number]) 1995 F T Date Time Provider Department 06/17/24 KVNG LEWIS [...] forwarded to: Provider's mailbox. Provider name: Re Rivers, STIVEN 06/17/2024 5:16 PM Signed Noted. Copy scanned [...] (post-traumatic stress disorder) [F43.10] 12/25/2012 DVT prophylaxis [[id number]] 12/25/2012 09/04/2013 DISPOSITION AND FOLLOW-UP [V999.01] 12/25/2012 09/04/2013 HTN (hypertension) [I10] Hypertension in , antepartum [O16.9] 09/19/2013 01/08/2014 GBS (group B Streptococcus carrier), +RV cultur*11/11/2013 04/16/2014 [Z34.90] 11/22/2013 04/16/2014 Diabetes mellitus in (HCC) [O24.919] 12/25/2013 04/16/2014 Diabetic ketoacidosis without coma associated w*01/08/2014 02/04/2023 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] 01/08/2014 DVT prophylaxis [OLU7114] 02/25/2014 04/16/2014 care and examination [Z39.2] 02/25/2014 [...] Status:Closed by RE GONZALEZ on 06/17/24 Normal [facility] Culture, Blood (WB)on 2023 CUB No growth in 5 days. Normal [facility] Comment on above: Performed By: #### M 200.1000 ####[facility] [address] [place], [address] Basic Metabolic Profile (BMP )on 06-11-2024 BUN/CRE 9.8 RATIO Low 06-16 [facility] Comment on above: Performed By: #### L 500.2500 ####[facility] [address] [place], [address] CA,Total 8.7 mg/dL Normal 8.5-10.1 [facility] Comment on above: Performed By: #### L 500.2500 ####[facility] [address] [place], [address] Chloride [Moles/Vol] 107 mmol/L Normal 98-107 [facility] Comment on above: Performed By: #### L 500.2500 ####[facility] [address] [place], [address] CO2 [Moles/Vol] 27.0 mmol/L Normal 21.0-32.0 [facility] Comment on above: Performed By: #### L 500.2500 ####[facility] [address] [place], [address] Creatinine [Mass/Vol] 0.82 mg/dL Normal 0.55-1.02 [facility] Comment on above: Result Comment: The validity of the calculated GFR GFRAA in patients over70 years has not been determined. Clinical correlation isessential. Performed By: #### L 500.2500 ####[facility] [address] [place], [address] ECRCL 105.79 ml/min Normal [facility] Comment on above: Performed By: #### L 500.2500 ####[facility] [address] [place] [id number] EST GFR - AA 106 mL/min Normal >60 [facility] Comment on above: Result Comment: Afri can [place] GFR Calc Performed By: #### L 500.2500 ####[facility] [address] [place] [address] GAP 6 Normal 5-15 [facility] Comment on above: Performed By: #### L 500.2500 ####[facility] [address] [place] [address] GFR/1.73 sq M.predicted among non-blacks MDRD (S/P/Bld) [Vol rate/Area] 87 mL/min/{1.73_m2} Normal >60 [facility] Comment on above: Result Comment: Non- GFR Calc Performed By: #### L 500.2500 ####[facility] [address] [place] [id number] Glucose [Mass/Vol] 194 mg/dL High 74-106 [facility] Comment on above: Result Comment: Fast ing Glucose result greater than or equal to 126 mg/dLsuggests DIABETES MELLITUS per A.D.A. criteria. Performed By: #### L 500.2500 ####[facility] [address] [place], [address] Potassium [Moles/Vol] 3.3 mmol/L Low 3.5-5.1 [facility] Comment on above: Performed By: #### L 500.2500 ####[facility] [address] [place], [address] Sodium [Moles/Vol] 140 mmol/L Normal 136-145 [facility] Comment on above: Performed By: #### L 500.2500 ####[facility] [address] [place], [address] Urea nitrogen [Mass/Vol] 8 mg/dL Normal - [facility] Comment on above: Performed By: #### L 500.2500 ####[facility] [address] [place], [address] Bedside Glucoseon 06-11-2024 FINGERSTICK GLU 116 mg/dL High 74-106 [facility] Comment on above: Result Comment: Dr Ej foreman FollowedMANAGEMENT OF PATIENT CARE PER NURSING PROTOCOL Performed By: #### L 501.080 ####[facility] [address] [place], [address] FINGERSTICK GLU 180 mg/dL High 74-106 [facility] Comment on above: Result Comment: EDGAR GEMENT OF PATIENT CARE PER NURSING PROTOCOL Performed By: #### L 501.080 ####[facility] [address] [place], [address] Discharge Instructionon 05-28 Discharge Instruction Normal [facility] Acetone Serumon 06-10-2024 ACETONE SERUM Negative Normal NEG [facility] Comment on above: Performed By: #### L 501.6900 ####[facility] [address] [place], [address] Basic Metabolic Profile (BMP )on 06-10-2024 BUN Normal - [facility] Comment on above: Result Comment: Mary sanchez via OM: Ordered Performed By: #### L 500.2500 ####[facility] [address] [place], [address] BUN/CRE Normal 06-16 [facility] Comment on above: Result Comment: Canc elled via OM: MD Ordered Performed By: #### L 500.2500 ####[facility] [address] [place], [address] CA,Total Normal 8.5-10.1 [facility] Comment on above: Result Comment: Canc elled via OM: MD Ordered Performed By: #### L 500.2500 ####[facility] [address] [place], [address] CL Normal 98-107 [facility] Comment on above: Result Comment: Canc elled via OM: MD Ordered Performed By: #### L 500.2500 ####[facility] [address] [place], [address] CO2 Normal 21.0-32.0 [facility] Comment on above: Result Comment: Canc elled via OM: MD Ordered Performed By: #### L 500.2500 ####[facility] [address] [place], [address] CREAT,SERUM Normal 0.55-1.02 [facility] Comment on above: Result Comment: Canc elled via OM: MD Ordered Performed By: #### L 500.2500 ####[facility] [address] [place], [address] EST GFR Normal >60 [facility] Comment on above: Result Comment: Canc elled via OM: MD Ordered Performed By: #### L 500.2500 ####[facility] [address] [place], [address] EST GFR - AA Normal >60 [facility] Comment on above: Result Comment: Canc elled via OM: MD Ordered Performed By: #### L 500.2500 ####[facility] [address] [place], [address] GAP Normal 5-15 [facility] Comment on above: Result Comment: Canc elled via OM: MD Ordered Performed By: #### L 500.2500 ####[facility] [address] [place], [address] GLU Normal 74-106 [facility] Comment on above: Result Comment: Canc elled via OM: MD Ordered Performed By: #### L 500.2500 ####[facility] [address] [place], [address] Potassium Normal 3.5-5.1 [facility] Comment on above: Result Comment: Canc elled via OM: MD Ordered Performed By: #### L 500.2500 ####[facility] [address] [place], [address] Basic Metabolic Profile (BMP) Normal 136-145 [facility] Comment on above: Result Comment: Canc elled via OM: MD Ordered Performed By: #### L 500.2500 ####[facility] [address] [place], [address] BUN/CRE 9.8 RATIO Low 10-20 [facility] Comment on above: Performed By: #### L 500.2500 ####[facility] [address] [place], [address] CA,Total 7.9 mg/dL Low 8.5-10.1 [facility] Comment on above: Performed By: #### L 500.2500 ####[facility] [address] [place], [address] Chloride [Moles/Vol] 107 mmol/L Normal 98-107 [facility] Comment on above: Performed By: #### L 500.2500 ####[facility] [address] [place], [address] CO2 [Moles/Vol] 25.0 mmol/L Normal 21.0-32.0 [facility] Comment on above: Performed By: #### L 500.2500 ####[facility] [address] [place], [address] Creatinine [Mass/Vol] 0.61 mg/dL Normal 0.55-1.02 [facility] Comment on above: Result Comment: The validity of the calculated GFR GFRAA in patients over70 years has not been determined. Clinical correlation isessential. Performed By: #### L 500.2500 ####[facility] [address] [place], [address] ECRCL 142.21 ml/min Normal [facility] Comment on above: Performed By: #### L 500.2500 ####[facility] [address] [place], [address] EST GFR - AA 148 mL/min Normal >60 [facility] Comment on above: Result Comment: Afri can Cuban GFR Calc Performed By: #### L 500.2500 ####[facility] [address] [place], [address] GAP 10 Normal 5-15 [facility] Comment on above: Performed By: #### L 500.2500 ####[facility] [address] [place], [address] GFR/1.73 sq M.predicted among non-blacks MDRD (S/P/Bld) [Vol rate/Area] 123 mL/min/{1.73_m2} Normal >60 [facility] Comment on above: Result Comment: Non- GFR Calc Performed By: #### L 500.2500 ####[facility] [address] [place], [address] Glucose [Mass/Vol] 89 mg/dL Normal 74-106 [facility] Comment on above: Performed By: #### L 500.2500 ####[facility] [address] [place], [address] Potassium [Moles/Vol] 3.0 mmol/L Low 3.5-5.1 [facility] Comment on above: Performed By: #### L 500.2500 ####[facility] [address] [place], [address] Sodium [Moles/Vol] 141 mmol/L Normal 136-145 [facility] Comment on above: Performed By: #### L 500.2500 ####[facility] [address] [place], [address] Urea nitrogen [Mass/Vol] 6 mg/dL Low 7-18 [facility] Comment on above: Performed By: #### L 500.2500 ####[facility] [address] [place], [address] BUN/CRE 11.2 RATIO Normal 10-20 [facility] Comment on above: Performed By: #### L 501.5200, L500.2500, L100.0100, L501.2300 ####[facility] [address] [place], [address] CA,Total 8.0 mg/dL Low 8.5-10.1 [facility] Comment on above: Performed By: #### L 501.5200, L500.2500, L100.0100, L501.2300 ####[facility] [address] [place], [address] Chloride [Moles/Vol] 107 mmol/L Normal 98-107 [facility] Comment on above: Performed By: #### L 501.5200, L500.2500, L100.0100, L501.2300 ####[facility] [address] [place], [address] CO2 [Moles/Vol] 24.0 mmol/L Normal 21.0-32.0 [facility] Comment on above: Performed By: #### L 501.5200, L500.2500, L100.0100, L501.2300 ####[facility] [address] [place], [address] Creatinine [Mass/Vol] 0.63 mg/dL Normal 0.55-1.02 [facility] Comment on above: Result Comment: The validity of the calculated GFR GFRAA in patients over70 years has not been determined. Clinical correlation isessential. Performed By: #### L 501.5200, L500.2500, L100.0100, L501.2300 ####[facility] [address] [place], [address] ECRCL 137.70 ml/min Normal [facility] Comment on above: Performed By: #### L 501.5200, L500.2500, L100.0100, L501.2300 ####[facility] [address] [place], [address] EST GFR - AA 144 mL/min Normal >60 [facility] Comment on above: Result Comment: Afri can Cuban GFR Calc Performed By: #### L 501.5200, L500.2500, L100.0100, L501.2300 ####[facility] [address] [place], [address] GAP 7 Normal 5-15 [facility] Comment on above: Performed By: #### L 501.5200, L500.2500, L100.0100, L501.2300 ####[facility] [address] [place], [address] GFR/1.73 sq M.predicted among non-blacks MDRD (S/P/Bld) [Vol rate/Area] 119 mL/min/{1.73_m2} Normal >60 [facility] Comment on above: Result Comment: Non- GFR Calc Performed By: #### L 501.5200, L500.2500, L100.0100, L501.2300 ####[facility] [address] [place], [address] Glucose [Mass/Vol] 127 mg/dL High 74-106 [facility] Comment on above: Result Comment: Fast ing Glucose result greater than or equal to 126 mg/dLsuggests DIABETES MELLITUS per A.D.A. criteria. Performed By: #### L 501.5200, L500.2500, L100.0100, L501.2300 ####[facility] [address] [place], [address] Potassium [Moles/Vol] 3.7 mmol/L Normal 3.5-5.1 [facility] Comment on above: Performed By: #### L 501.5200, L500.2500, L100.0100, L501.2300 ####[facility] [address] [place], [address] Sodium [Moles/Vol] 138 mmol/L Normal 136-145 [facility] Comment on above: Performed By: #### L 501.5200, L500.2500, L100.0100, L501.2300 ####[facility] [address] [place], [address] Urea nitrogen [Mass/Vol] 7 mg/dL Normal 7-18 [facility] Comment on above: Performed By: #### L 501.5200, L500.2500, L100.0100, L501.2300 ####[facility] [address] [place], [address] BUN/CRE 11.2 RATIO Normal 10-20 [facility] Comment on above: Performed By: #### L 500.2500 ####[facility] [address] [place], [address] CA,Total 7.9 mg/dL Low 8.5-10.1 [facility] Comment on above: Performed By: #### L 500.2500 ####[facility] [address] [place], [address] Chloride [Moles/Vol] 107 mmol/L Normal 98-107 [facility] Comment on above: Performed By: #### L 500.2500 ####[facility] [address] [place], [address] CO2 [Moles/Vol] 25.0 mmol/L Normal 21.0-32.0 [facility] Comment on above: Performed By: #### L 500.2500 ####[facility] [address] [place], [address] Creatinine [Mass/Vol] 0.81 mg/dL Normal 0.55-1.02 [facility] Comment on above: Result Comment: The validity of the calculated GFR GFRAA in patients over70 years has not been determined. Clinical correlation isessential. Performed By: #### L 500.2500 ####[facility] [address] [place], [address] ECRCL 107.10 ml/min Normal [facility] Comment on above: Performed By: #### L 500.2500 ####[facility] [address] [place], [address] EST GFR - AA 108 mL/min Normal >60 [facility] Comment on above: Result Comment: Afri can Cuban GFR Calc Performed By: #### L 500.2500 ####[facility] [address] [place], [address] GAP 7 Normal 5-15 [facility] Comment on above: Performed By: #### L 500.2500 ####[facility] [address] [place], [address] GFR/1.73 sq M.predicted among non-blacks MDRD (S/P/Bld) [Vol rate/Area] 89 mL/min/{1.73_m2} Normal >60 [facility] Comment on above: Result Comment: Non- GFR Calc Performed By: #### L 500.2500 ####[facility] [address] [place], [address] Glucose [Mass/Vol] 185 mg/dL High 74-106 [facility] Comment on above: Result Comment: Fast ing Glucose result greater than or equal to 126 mg/dLsuggests DIABETES MELLITUS per A.D.A. criteria. Performed By: #### L 500.2500 ####[facility] [address] [place], [address] Potassium [Moles/Vol] 2.9 mmol/L Low 3.5-5.1 [facility] Comment on above: Performed By: #### L 500.2500 ####[facility] [address] [place], [address] Sodium [Moles/Vol] 140 mmol/L Normal 136-145 [facility] Comment on above: Performed By: #### L 500.2500 ####[facility] [address] [place], [address] Urea nitrogen [Mass/Vol] 9 mg/dL Normal 7-18 [facility] Comment on above: Performed By: #### L 500.2500 ####[facility] [address] [place], [address] Bedside Glucoseon 06-10-2024 FINGERSTICK GLU 122 mg/dL High 74-106 [facility] Comment on above: Result Comment: EDGAR GEMENT OF PATIENT CARE PER NURSING PROTOCOL Performed By: #### L 501.080 ####[facility] [address] [place], [address] FINGERSTICK GLU 120 mg/dL High -106 [facility] Comment on above: Result Comment: EDGAR GEMENT OF PATIENT CARE PER NURSING PROTOCOL Performed By: #### L 501.080 ####[facility] [address] [place], [address] FINGERSTICK GLU 158 mg/dL High 74-106 [facility] Comment on above: Result Comment: EDGAR GEMENT OF PATIENT CARE PER NURSING PROTOCOL Performed By: #### L 501.080 ####[facility] [address] [place], [address] FINGERSTICK GLU 93 mg/dL Normal 74-106 [facility] Comment on above: Result Comment: EDGAR GEMENT OF PATIENT CARE PER NURSING PROTOCOL Performed By: #### L 501.080 ####[facility] [address] [place], [address] FINGERSTICK GLU 85 mg/dL Normal 74-106 [facility] Comment on above: Result Comment: EDGAR GEMENT OF PATIENT CARE PER NURSING PROTOCOL Performed By: #### L 501.080 ####[facility] [address] [place], [address] FINGERSTICK GLU 67 mg/dL Low 74-106 [facility] Comment on above: Result Comment: EDGAR GEMENT OF PATIENT CARE PER NURSING PROTOCOL Performed By: #### L 501.080 ####[facility] [address] [place], [address] FINGERSTICK GLU 64 mg/dL Low 74-106 [facility] Comment on above: Result Comment: EDGAR GEMENT OF PATIENT CARE PER NURSING PROTOCOL Performed By: #### L 501.080 ####[facility] [address] [place], [address] FINGERSTICK GLU 74 mg/dL Normal 74-106 [facility] Comment on above: Result Comment: EDGAR GEMENT OF PATIENT CARE PER NURSING PROTOCOL Performed By: #### L 501.080 ####[facility] [address] [place], [address] FINGERSTICK GLU 124 mg/dL High 74-106 [facility] Comment on above: Result Comment: EDGAR GEMENT OF PATIENT CARE PER NURSING PROTOCOL Performed By: #### L 501.080 ####[facility] [address] [place], [address] FINGERSTICK GLU 146 mg/dL High 74-106 [facility] Comment on above: Result Comment: EDGAR GEMENT OF PATIENT CARE PER NURSING PROTOCOL Performed By: #### L 501.080 ####[facility] [address] [place], [address] FINGERSTICK GLU 122 mg/dL High 74-106 [facility] Comment on above: Result Comment: EDGAR GEMENT OF PATIENT CARE PER NURSING PROTOCOL Performed By: #### L 501.080 ####[facility] [address] [place], [address] FINGERSTICK GLU 286 mg/dL High -106 [facility] Comment on above: Result Comment: EDGAR GEMENT OF PATIENT CARE PER NURSING PROTOCOL Performed By: #### L 501.080 ####[facility] [address] [place], [address] FINGERSTICK GLU 233 mg/dL High 74-106 [facility] Comment on above: Result Comment: EDGAR GEMENT OF PATIENT CARE PER NURSING PROTOCOL Performed By: #### L 501.080 ####[facility] [address] [place], [address] FINGERSTICK GLU 194 mg/dL High -106 [facility] Comment on above: Result Comment: EDGAR GEMENT OF PATIENT CARE PER NURSING PROTOCOL Performed By: #### L 501.080 ####[facility] [address] [place], [address] FINGERSTICK GLU 195 mg/dL High 74-106 [facility] Comment on above: Result Comment: EDGAR GEMENT OF PATIENT CARE PER NURSING PROTOCOL Performed By: #### L 501.080 ####[facility] [address] [place], [address] CBC W/Diff, Automatedon 10-1 Absolute Lymph 2.08 X10 3/uL Normal 0.83-4.51 [facility] Comment on above: Performed By: #### L 501.5200, L500.2500, L100.0100, L501.2300 ####[facility] [address] [place], [address] Absolute Neut 11.6 X10 3/uL High 2.0-7.7 [facility] Comment on above: Performed By: #### L 501.5200, L500.2500, L100.0100, L501.2300 ####[facility] [address] [place], [address] Basophils/100 WBC (Bld) 0.3 % Normal 0-1 [facility] Comment on above: Performed By: #### L 501.5200, L500.2500, L100.0100, L501.2300 ####[facility] [address] [place], [address] Eosinophils/100 WBC (Bld) 0.1 % Normal 0-5 [facility] Comment on above: Performed By: #### L 501.5200, L500.2500, L100.0100, L501.2300 ####[facility] [address] [place], [address] Erythrocyte distribution width (RBC) [Ratio] 12.6 % Normal 11.6-14.6 [facility] Comment on above: Performed By: #### L 501.5200, L500.2500, L100.0100, L501.2300 ####[facility] [address] [place], [address] Hematocrit (Bld) [Volume fraction] 36.7 % Low 37-47 [facility] Comment on above: Performed By: #### L 501.5200, L500.2500, L100.0100, L501.2300 ####[facility] [address] [place], [address] Hemoglobin (Bld) [Mass/Vol] 12.2 g/dL Normal 12.0-15.0 [facility] Comment on above: Performed By: #### L 501.5200, L500.2500, L100.0100, L501.2300 ####[facility] [address] [place], [address] IG% 1.100 High 0.0-0.9 [facility] Comment on above: Result Comment: IG% - Immature Granulocytes (promyelocytes, myelocytes andmetamyelocytes) > 1% indicates that a LEFT SHIFT is Present. Performed By: #### L 501.5200, L500.2500, L100.0100, L501.2300 ####[facility] [address] [place], [address] Lymphocytes/100 WBC (Bld) 14.1 % Low 19-41 [facility] Comment on above: Performed By: #### L 501.5200, L500.2500, L100.0100, L501.2300 ####[facility] [address] [place], [address] MCH (RBC) [Entitic mass] 29.5 pg Normal 27.0-32.0 [facility] Comment on above: Performed By: #### L 501.5200, L500.2500, L100.0100, L501.2300 ####[facility] [address] [place], [address] MCHC (RBC) [Mass/Vol] 33.2 g/dL Normal 32-36 [facility] Comment on above: Performed By: #### L 501.5200, L500.2500, L100.0100, L501.2300 ####[facility] [address] [place], [address] MCV (RBC) [Entitic vol] 88.9 fL Normal 81-99 [facility] Comment on above: Performed By: #### L 501.5200, L500.2500, L100.0100, L501.2300 ####[facility] [address] [place], [address] Monocytes/100 WBC (Bld) 5.9 % Normal 0-10 [facility] Comment on above: Performed By: #### L 501.5200, L500.2500, L100.0100, L501.2300 ####[facility] [address] [place], [address] Neutrophils/100 WBC (Bld) 78.5 % High 47-70 [facility] Comment on above: Performed By: #### L 501.5200, L500.2500, L100.0100, L501.2300 ####[facility] [address] [place], [address] Nucleated RBC (Bld) [#/Vol] 0 10*3/uL Normal 0-5 [facility] Comment on above: Performed By: #### L 501.5200, L500.2500, L100.0100, L501.2300 ####[facility] [address] [place], [address] Platelet mean volume (Bld) [Entitic vol] 11.8 fL Normal 6.2-12.0 [facility] Comment on above: Performed By: #### L 501.5200, L500.2500, L100.0100, L501.2300 ####[facility] [address] [place], [address] Platelets (Bld) [#/Vol] 187 10*3/uL Normal 150-450 [facility] Comment on above: Performed By: #### L 501.5200, L500.2500, L100.0100, L501.2300 ####[facility] [address] [place], [address] RBC (Bld) [#/Vol] 4.13 10*6/uL Low 4.2-5.4 [facility] Comment on above: Performed By: #### L 501.5200, L500.2500, L100.0100, L501.2300 ####[facility] [address] [place], [address] RDW SD 41.1 fl Normal 35.1-43.9 [facility] Comment on above: Performed By: #### L 501.5200, L500.2500, L100.0100, L501.2300 ####[facility] [address] [place], [address] WBC (Bld) [#/Vol] 14.8 10*3/uL High 4.4-11.0 [facility] Comment on above: Performed By: #### L 501.5200, L500.2500, L100.0100, L501.2300 ####[facility] [address] [place], [address] Magnesiumon 06-10-2024 Magnesium [Mass/Vol] 2.2 mg/dL Normal 1.6-2.6 [facility] Comment on above: Performed By: #### L 501.5200, L500.2500, L100.0100, L501.2300 ####[facility] [address] [place], [address] Phosphoruson 06-10-2024 Phosphate [Mass/Vol] 2.3 mg/dL Low 2.5-4.9 [facility] Comment on above: Performed By: #### L 501.2300 ####[facility] [address] [place], [address] Phosphate [Mass/Vol] 1.8 mg/dL Low 2.5-4.9 [facility] Comment on above: Performed By: #### L 501.5200, L500.2500, L100.0100, L501.2300 ####[facility] [address] [place], [address] Acetone Serumon 06-09-2024 ACETONE SERUM LARGE Abnormal NEG [facility] Comment on above: Performed By: #### L 501.6900 ####[facility] [address] [place], [address] Basic Metabolic Profile (BMP )on 06-09-2024 BUN/CRE 12.1 RATIO Normal 10-20 [facility] Comment on above: Performed By: #### L 500.2500 ####[facility] [address] [place], [address] CA,Total 8.0 mg/dL Low 8.5-10.1 [facility] Comment on above: Performed By: #### L 500.2500 ####[facility] [address] [place], [address] Chloride [Moles/Vol] 103 mmol/L Normal 98-107 [facility] Comment on above: Performed By: #### L 500.2500 ####[facility] [address] [place], [address] CO2 [Moles/Vol] 21.0 mmol/L Normal 21.0-32.0 [facility] Comment on above: Performed By: #### L 500.2500 ####[facility] [address] [place], [address] Creatinine [Mass/Vol] 0.74 mg/dL Normal 0.55-1.02 [facility] Comment on above: Result Comment: The validity of the calculated GFR GFRAA in patients over70 years has not been determined. Clinical correlation isessential. Performed By: #### L 500.2500 ####[facility] [address] [place], [address] ECRCL 117.23 ml/min Normal [facility] Comment on above: Performed By: #### L 500.2500 ####[facility] [address] [place], [address] EST GFR - AA 118 mL/min Normal >60 [facility] Comment on above: Result Comment: Afri can Cuban GFR Calc Performed By: #### L 500.2500 ####[facility] [address] [place], [address] GAP 12 Normal 5-15 [facility] Comment on above: Performed By: #### L 500.2500 ####[facility] [address] [place], [address] GFR/1.73 sq M.predicted among non-blacks MDRD (S/P/Bld) [Vol rate/Area] 98 mL/min/{1.73_m2} Normal >60 [facility] Comment on above: Result Comment: Non- GFR Calc Performed By: #### L 500.2500 ####[facility] [address] [place], [address] Glucose [Mass/Vol] 351 mg/dL High 74-106 [facility] Comment on above: Result Comment: Gluc ose result greater than or equal to 200 mg/dLsuggests DIABETES MELLITUS per A.D.A. criteria. Performed By: #### L 500.2500 ####[facility] [address] [place], [address] Potassium [Moles/Vol] 3.4 mmol/L Low 3.5-5.1 [facility] Comment on above: Performed By: #### L 500.2500 ####[facility] [address] [place], [address] Sodium [Moles/Vol] 136 mmol/L Normal 136-145 [facility] Comment on above: Performed By: #### L 500.2500 ####[facility] [address] [place], [address] Urea nitrogen [Mass/Vol] 9 mg/dL Normal 7-18 [facility] Comment on above: Performed By: #### L 500.2500 ####[facility] [address] [place], [address] BUN Normal 7-18 [facility] Comment on above: Result Comment: Canc elled via OM: MD Ordered Performed By: #### L 500.2500 ####[facility] [address] [place], [address] Order Comment: Call MD with results STAT BUN/CRE Normal 10-20 [facility] Comment on above: Result Comment: Canc elled via OM: MD Ordered Performed By: #### L 500.2500 ####[facility] [address] [place], [address] Order Comment: Call MD with results STAT CA,Total Normal 8.5-10.1 [facility] Comment on above: Result Comment: Canc elled via OM: MD Ordered Performed By: #### L 500.2500 ####[facility] [address] [place], [address] Order Comment: Call MD with results STAT CL Normal 98-107 [facility] Comment on above: Result Comment: Canc elled via OM: MD Ordered Performed By: #### L 500.2500 ####[facility] [address] [place], [address] Order Comment: Call MD with results STAT CO2 Normal 21.0-32.0 [facility] Comment on above: Result Comment: Canc elled via OM: MD Ordered Performed By: #### L 500.2500 ####[facility] [address] [place], [address] Order Comment: Call MD with results STAT CREAT,SERUM Normal 0.55-1.02 [facility] Comment on above: Result Comment: Canc elled via OM: MD Ordered Performed By: #### L 500.2500 ####[facility] [address] [place], [address] Order Comment: Call MD with results STAT EST GFR Normal >60 [facility] Comment on above: Result Comment: Canc elled via OM: MD Ordered Performed By: #### L 500.2500 ####[facility] [address] [place], [address] Order Comment: Call MD with results STAT EST GFR - AA Normal >60 [facility] Comment on above: Result Comment: Canc elled via OM: MD Ordered Performed By: #### L 500.2500 ####[facility] [address] [place], [address] Order Comment: Call MD with results STAT GAP Normal 5-15 [facility] Comment on above: Result Comment: Canc elled via OM: MD Ordered Performed By: #### L 500.2500 ####[facility] [address] [place], [address] Order Comment: Call MD with results STAT GLU Normal 74-106 [facility] Comment on above: Result Comment: Canc elled via OM: MD Ordered Performed By: #### L 500.2500 ####[facility] [address] [place], [address] Order Comment: Call MD with results STAT Potassium Normal 3.5-5.1 [facility] Comment on above: Result Comment: Canc elled via OM: MD Ordered Performed By: #### L 500.2500 ####[facility] [address] [place], [address] Order Comment: Call MD with results STAT Basic Metabolic Profile (BMP) Normal 136-145 [facility] Comment on above: Result Comment: Canc elled via OM: MD Ordered Performed By: #### L 500.2500 ####[facility] [address] [place], [address] Order Comment: Call MD with results STAT BUN Normal 7-18 [facility] Comment on above: Order Comment: Call MD with results STAT Result Comment: NOT COLLECTED. Performed By: #### L 500.2500 ####[facility] [address] [place], [address] BUN/CRE Normal 10-20 [facility] Comment on above: Order Comment: Call MD with results STAT Result Comment: NOT COLLECTED. Performed By: #### L 500.2500 ####[facility] [address] [place], [address] CA,Total Normal 8.5-10.1 [facility] Comment on above: Order Comment: Call MD with results STAT Result Comment: NOT COLLECTED. Performed By: #### L 500.2500 ####[facility] [address] [place], [address] CL Normal 98-107 [facility] Comment on above: Order Comment: Call MD with results STAT Result Comment: NOT COLLECTED. Performed By: #### L 500.2500 ####[facility] [address] [place], [address] CO2 Normal 21.0-32.0 [facility] Comment on above: Order Comment: Call MD with results STAT Result Comment: NOT COLLECTED. Performed By: #### L 500.2500 ####[facility] [address] [place], [address] CREAT,SERUM Normal 0.55-1.02 [facility] Comment on above: Order Comment: Call MD with results STAT Result Comment: NOT COLLECTED. Performed By: #### L 500.2500 ####[facility] [address] [place], [address] EST GFR Normal >60 [facility] Comment on above: Order Comment: Call MD with results STAT Result Comment: NOT COLLECTED. Performed By: #### L 500.2500 ####[facility] [address] [place], [address] EST GFR - AA Normal >60 [facility] Comment on above: Order Comment: Call MD with results STAT Result Comment: NOT COLLECTED. Performed By: #### L 500.2500 ####[facility] [address] [place], [address] GAP Normal 5-15 [facility] Comment on above: Order Comment: Call MD with results STAT Result Comment: NOT COLLECTED. Performed By: #### L 500.2500 ####[facility] [address] [place], [address] GLU Normal 74-106 [facility] Comment on above: Order Comment: Call MD with results STAT Result Comment: NOT COLLECTED. Performed By: #### L 500.2500 ####[facility] [address] [place], [address] Potassium Normal 3.5-5.1 [facility] Comment on above: Order Comment: Call MD with results STAT Result Comment: NOT COLLECTED. Performed By: #### L 500.2500 ####[facility] [address] [place], [address] Basic Metabolic Profile (BMP) Normal 136-145 [facility] Comment on above: Order Comment: Call MD with results STAT Result Comment: NOT COLLECTED. Performed By: #### L 500.2500 ####[facility] [address] [place], [address] Bedside Glucoseon 06-09-2024 FINGERSTICK GLU 322 mg/dL High 74-106 [facility] Comment on above: Result Comment: EDGAR GEMENT OF PATIENT CARE PER NURSING PROTOCOL Performed By: #### L 501.080 ####[facility] [address] [place], [address] FINGERSTICK GLU 354 mg/dL High 74-106 [facility] Comment on above: Result Comment: EDGAR GEMENT OF PATIENT CARE PER NURSING PROTOCOL Performed By: #### L 501.080 ####[facility] [address] [place], [address] FINGERSTICK GLU 146 mg/dL High 74-106 [facility] Comment on above: Result Comment: EDGAR GEMENT OF PATIENT CARE PER NURSING PROTOCOL Performed By: #### L 501.080 ####[facility] [address] [place], [address] FINGERSTICK GLU 51 mg/dL Low 74-106 [facility] Comment on above: Result Comment: EDGAR GEMENT OF PATIENT CARE PER NURSING PROTOCOL Performed By: #### L 501.080 ####[facility] [address] [place], [address] FINGERSTICK GLU 72 mg/dL Low 74-106 [facility] Comment on above: Result Comment: EDGAR GEMENT OF PATIENT CARE PER NURSING PROTOCOL Performed By: #### L 501.080 ####[facility] [address] [place], [address] FINGERSTICK GLU 127 mg/dL High 74-106 [facility] Comment on above: Result Comment: EDGAR GEMENT OF PATIENT CARE PER NURSING PROTOCOL Performed By: #### L 501.080 ####[facility] [address] [place], [address] FINGERSTICK GLU 128 mg/dL High 74-106 [facility] Comment on above: Result Comment: EDGAR GEMENT OF PATIENT CARE PER NURSING PROTOCOL Performed By: #### L 501.080 ####[facility] [address] [place], [address] FINGERSTICK GLU 135 mg/dL High 74-106 [facility] Comment on above: Result Comment: EDGAR GEMENT OF PATIENT CARE PER NURSING PROTOCOL Performed By: #### L 501.080 ####[facility] [address] [place], [address] FINGERSTICK GLU 127 mg/dL High 74-106 [facility] Comment on above: Result Comment: EDGAR GEMENT OF PATIENT CARE PER NURSING PROTOCOL Performed By: #### L 501.080 ####[facility] [address] [place], [address] FINGERSTICK GLU 131 mg/dL High 74-106 [facility] Comment on above: Result Comment: EDGAR GEMENT OF PATIENT CARE PER NURSING PROTOCOL Performed By: #### L 501.080 ####[facility] [address] [place], [address] FINGERSTICK GLU 136 mg/dL High 74-106 [facility] Comment on above: Result Comment: EDGAR GEMENT OF PATIENT CARE PER NURSING PROTOCOL Performed By: #### L 501.080 ####[facility] [address] [place], [address] FINGERSTICK GLU 170 mg/dL High 74-106 [facility] Comment on above: Result Comment: EDGAR GEMENT OF PATIENT CARE PER NURSING PROTOCOL Performed By: #### L 501.080 ####[facility] [address] [place], [address] FINGERSTICK GLU 206 mg/dL High 74-106 [facility] Comment on above: Result Comment: EDGAR GEMENT OF PATIENT CARE PER NURSING PROTOCOL Performed By: #### L 501.080 ####[facility] [address] [place], [address] CBC W/Diff, Automatedon 10-1 -2023 Absolute Lymph 1.62 X10 3/uL Normal 0.83-4.51 [facility] Comment on above: Performed By: #### L 100.0100, L501.2300 ####[facility] [address] [place], [address] Absolute Neut 14.1 X10 3/uL High 2.0-7.7 [facility] Comment on above: Performed By: #### L 100.0100, L501.2300 ####[facility] [address] [place], [address] Basophils/100 WBC (Bld) 0.2 % Normal 0-1 [facility] Comment on above: Performed By: #### L 100.0100, L501.2300 ####[facility] [address] [place], [address] Eosinophils/100 WBC (Bld) 0.1 % Normal 0-5 [facility] Comment on above: Performed By: #### L 100.0100, L501.2300 ####[facility] [address] [place], [address] Erythrocyte distribution width (RBC) [Ratio] 12.9 % Normal 11.6-14.6 [facility] Comment on above: Performed By: #### L 100.0100, L501.2300 ####[facility] [address] [place], [address] Hematocrit (Bld) [Volume fraction] 34.0 % Low 37-47 [facility] Comment on above: Performed By: #### L 100.0100, L501.2300 ####[facility] [address] [place], [address] Hemoglobin (Bld) [Mass/Vol] 11.1 g/dL Low 12.0-15.0 [facility] Comment on above: Performed By: #### L 100.0100, L501.2300 ####[facility] [address] [place], [address] IG% 0.800 Normal 0.0-0.9 [facility] Comment on above: Result Comment: IG% - Immature Granulocytes (promyelocytes, myelocytes andmetamyelocytes) > 1% indicates that a LEFT SHIFT is Present. Performed By: #### L 100.0100, L501.2300 ####[facility] [address] [place], [address] Lymphocytes/100 WBC (Bld) 9.7 % Low 19-41 [facility] Comment on above: Performed By: #### L 100.0100, L501.2300 ####[facility] [address] [place], [address] MCH (RBC) [Entitic mass] 29.1 pg Normal 27.0-32.0 [facility] Comment on above: Performed By: #### L 100.0100, L501.2300 ####[facility] [address] [place], [address] MCHC (RBC) [Mass/Vol] 32.6 g/dL Normal 32-36 [facility] Comment on above: Performed By: #### L 100.0100, L501.2300 ####[facility] [address] [place], [address] MCV (RBC) [Entitic vol] 89.2 fL Normal 81-99 [facility] Comment on above: Performed By: #### L 100.0100, L501.2300 ####[facility] [address] [place], [address] Monocytes/100 WBC (Bld) 5.1 % Normal 0-10 [facility] Comment on above: Performed By: #### L 100.0100, L501.2300 ####[facility] [address] [place], [address] Neutrophils/100 WBC (Bld) 84.1 % High 47-70 [facility] Comment on above: Performed By: #### L 100.0100, L501.2300 ####[facility] [address] [place], [address] Nucleated RBC (Bld) [#/Vol] 0 10*3/uL Normal 0-5 [facility] Comment on above: Performed By: #### L 100.0100, L501.2300 ####[facility] [address] [place], [address] Platelet mean volume (Bld) [Entitic vol] 12.0 fL Normal 6.2-12.0 [facility] Comment on above: Performed By: #### L 100.0100, L501.2300 ####[facility] [address] [place], [address] Platelets (Bld) [#/Vol] 147 10*3/uL Low 150-450 [facility] Comment on above: Performed By: #### L 100.0100, L501.2300 ####[facility] [address] [place], [address] RBC (Bld) [#/Vol] 3.81 10*6/uL Low 4.2-5.4 [facility] Comment on above: Performed By: #### L 100.0100, L501.2300 ####[facility] [address] [place], [address] RDW SD 42.1 fl Normal 35.1-43.9 [facility] Comment on above: Performed By: #### L 100.0100, L501.2300 ####[facility] [address] [place], [address] WBC (Bld) [#/Vol] 16.7 10*3/uL High 4.4-11.0 [facility] Comment on above: Performed By: #### L 100.0100, L501.2300 ####[facility] [address] [place], [address] Comprehensive Metabolic Prof ilon 06-09-2024 Albumin [Mass/Vol] 3.0 g/dL Low 3.2-5.0 [facility] Comment on above: Order Comment: Call with results STAT Performed By: #### L 501.5200, L500.4050 ####[facility] [address] [place], [address] Albumin/Globulin [Mass ratio] 1.1 {ratio} Normal 0.9-2.4 [facility] Comment on above: Order Comment: Call MD with results STAT Performed By: #### L 501.5200, L500.4050 ####[facility] [address] [place], [address] ALK P 68 U/L Normal 45-117 [facility] Comment on above: Order Comment: Call MD with results STAT Performed By: #### L 501.5200, L500.4050 ####[facility] [address] [place], [address] ALT [Catalytic activity/Vol] 22 U/L Normal 13-56 [facility] Comment on above: Order Comment: Call MD with results STAT Performed By: #### L 501.5200, L500.4050 ####[facility] [address] [place], [address] AST [Catalytic activity/Vol] 12 U/L Low 15-37 [facility] Comment on above: Order Comment: Call MD with results STAT Performed By: #### L 501.5200, L500.4050 ####[facility] [address] [place], [address] Bilirubin [Mass/Vol] 0.80 mg/dL Normal 0.20-1.00 [facility] Comment on above: Order Comment: Call MD with results STAT Result Comment: For patients on eltrombopag therapy, use of Dimension [place] TBIL is not recommended. Performed By: #### L 501.5200, L500.4050 ####[facility] [address] [place], [address] BUN/CRE 16.7 RATIO Normal 10-20 [facility] Comment on above: Order Comment: Call MD with results STAT Performed By: #### L 501.5200, L500.4050 ####[facility] [address] [place], [address] CA,Total 7.7 mg/dL Low 8.5-10.1 [facility] Comment on above: Order Comment: Call MD with results STAT Performed By: #### L 501.5200, L500.4050 ####[facility] [address] [place], [address] Chloride [Moles/Vol] 111 mmol/L High 98-107 [facility] Comment on above: Order Comment: Call MD with results STAT Performed By: #### L 501.5200, L500.4050 ####[facility] [address] [place], [address] CO2 [Moles/Vol] 23.0 mmol/L Normal 21.0-32.0 [facility] Comment on above: Order Comment: Call MD with results STAT Performed By: #### L 501.5200, L500.4050 ####[facility] [address] [place], [address] Creatinine [Mass/Vol] 0.60 mg/dL Normal 0.55-1.02 [facility] Comment on above: Order Comment: Call MD with results STAT Result Comment: The validity of the calculated GFR GFRAA in patients over70 years has not been determined. Clinical correlation isessential. Performed By: #### L 501.5200, L500.4050 ####[facility] [address] [place], [address] ECRCL 144.58 ml/min Normal [facility] Comment on above: Order Comment: Call MD with results STAT Performed By: #### L 501.5200, L500.4050 ####[facility] [address] [place], [address] EST GFR - AA 151 mL/min Normal >60 [facility] Comment on above: Order Comment: Call MD with results STAT Result Comment: Afri can Cuban GFR Calc Performed By: #### L 501.5200, L500.4050 ####[facility] [address] [place], [address] GAP 6 Normal 5-15 [facility] Comment on above: Order Comment: Call MD with results STAT Performed By: #### L 501.5200, L500.4050 ####[facility] [address] [place], [address] GFR/1.73 sq M.predicted among non-blacks MDRD (S/P/Bld) [Vol rate/Area] 125 mL/min/{1.73_m2} Normal >60 [facility] Comment on above: Order Comment: Call MD with results STAT Result Comment: Non- GFR Calc Performed By: #### L 501.5200, L500.4050 ####[facility] [address] [place], [address] Globulin (S) [Mass/Vol] 2.7 g/dL Normal 2.2-4.2 [facility] Comment on above: Order Comment: Call MD with results STAT Performed By: #### L 501.5200, L500.4050 ####[facility] [address] [place], [address] Glucose [Mass/Vol] 142 mg/dL High 74-106 [facility] Comment on above: Order Comment: Call MD with results STAT Result Comment: Fast ing Glucose result greater than or equal to 126 mg/dLsuggests DIABETES MELLITUS per A.D.A. criteria. Performed By: #### L 501.5200, L500.4050 ####[facility] [address] [place], [address] Potassium [Moles/Vol] 3.0 mmol/L Low 3.5-5.1 [facility] Comment on above: Order Comment: Call MD with results STAT Performed By: #### L 501.5200, L500.4050 ####[facility] [address] [place], [address] Sodium [Moles/Vol] 139 mmol/L Normal 136-145 [facility] Comment on above: Order Comment: Call MD with results STAT Performed By: #### L 501.5200, L500.4050 ####[facility] [address] [place], [address] T PROT 5.7 g/dL Low 6.4-8.2 [facility] Comment on above: Order Comment: Call MD with results STAT Performed By: #### L 501.5200, L500.4050 ####[facility] [address] [place], [address] Urea nitrogen [Mass/Vol] 10 mg/dL Normal 7-18 [facility] Comment on above: Order Comment: Call MD with results STAT Performed By: #### L 501.5200, L500.4050 ####[facility] [address] [place], [address] Magnesiumon 06-09-2024 Magnesium [Mass/Vol] 2.0 mg/dL Normal 1.6-2.6 [facility] Comment on above: Order Comment: Call MD with results STAT Performed By: #### L 501.5200, L500.4050 ####[facility] [address] [place], [address] Phosphoruson 06-09-2024 Phosphate [Mass/Vol] 1.2 mg/dL Low 2.5-4.9 [facility] Comment on above: Performed By: #### L 100.0100, L501.2300 ####[facility] [address] [place], [address] Acetone Serumon 06-08-2024 ACETONE SERUM SMALL Abnormal NEG [facility] Comment on above: Order Comment: Comme nts: If not done in the ED Performed By: #### L 501.6900 ####[facility] [address] [place], [address] Basic Metabolic Profile (BMP )on 06-08-2024 BUN Normal 7-18 [facility] Comment on above: Order Comment: Call MD with results STAT Result Comment: NOT COLLECTED. Performed By: #### L 500.2500 ####[facility] [address] [place], [address] BUN/CRE Normal 10-20 [facility] Comment on above: Order Comment: Call MD with results STAT Result Comment: NOT COLLECTED. Performed By: #### L 500.2500 ####[facility] [address] [place], [address] CA,Total Normal 8.5-10.1 [facility] Comment on above: Order Comment: Call MD with results STAT Result Comment: NOT COLLECTED. Performed By: #### L 500.2500 ####[facility] [address] [place], [address] CL Normal 98-107 [facility] Comment on above: Order Comment: Call MD with results STAT Result Comment: NOT COLLECTED. Performed By: #### L 500.2500 ####[facility] [address] [place], [address] CO2 Normal 21.0-32.0 [facility] Comment on above: Order Comment: Call MD with results STAT Result Comment: NOT COLLECTED. Performed By: #### L 500.2500 ####[facility] [address] [place], [address] CREAT,SERUM Normal 0.55-1.02 [facility] Comment on above: Order Comment: Call MD with results STAT Result Comment: NOT COLLECTED. Performed By: #### L 500.2500 ####[facility] [address] [place], [address] EST GFR Normal >60 [facility] Comment on above: Order Comment: Call MD with results STAT Result Comment: NOT COLLECTED. Performed By: #### L 500.2500 ####[facility] [address] [place], [address] EST GFR - AA Normal >60 [facility] Comment on above: Order Comment: Call MD with results STAT Result Comment: NOT COLLECTED. Performed By: #### L 500.2500 ####[facility] [address] [place], [address] GAP Normal 5-15 [facility] Comment on above: Order Comment: Call MD with results STAT Result Comment: NOT COLLECTED. Performed By: #### L 500.2500 ####[facility] [address] [place], [address] GLU Normal 74-106 [facility] Comment on above: Order Comment: Call MD with results STAT Result Comment: NOT COLLECTED. Performed By: #### L 500.2500 ####[facility] [address] [place], [address] Potassium Normal 3.5-5.1 [facility] Comment on above: Order Comment: Call MD with results STAT Result Comment: NOT COLLECTED. Performed By: #### L 500.2500 ####[facility] [address] [place], [address] Basic Metabolic Profile (BMP) Normal 136-145 [facility] Comment on above: Order Comment: Call MD with results STAT Result Comment: NOT COLLECTED. Performed By: #### L 500.2500 ####[facility] [address] [place], [address] BUN Normal 7-18 [facility] Comment on above: Order Comment: Call MD with results STAT Result Comment: NOT COLLECTED. Performed By: #### L 500.2500 ####[facility] [address] [place], [address] BUN/CRE Normal 10-20 [facility] Comment on above: Order Comment: Call MD with results STAT Result Comment: NOT COLLECTED. Performed By: #### L 500.2500 ####[facility] [address] [place], [address] CA,Total Normal 8.5-10.1 [facility] Comment on above: Order Comment: Call MD with results STAT Result Comment: NOT COLLECTED. Performed By: #### L 500.2500 ####[facility] [address] [place], [address] CL Normal 98-107 [facility] Comment on above: Order Comment: Call MD with results STAT Result Comment: NOT COLLECTED. Performed By: #### L 500.2500 ####[facility] [address] [place], [address] CO2 Normal 21.0-32.0 [facility] Comment on above: Order Comment: Call MD with results STAT Result Comment: NOT COLLECTED. Performed By: #### L 500.2500 ####[facility] [address] [place], [address] CREAT,SERUM Normal 0.55-1.02 [facility] Comment on above: Order Comment: Call MD with results STAT Result Comment: NOT COLLECTED. Performed By: #### L 500.2500 ####[facility] [address] [place], [address] EST GFR Normal >60 [facility] Comment on above: Order Comment: Call MD with results STAT Result Comment: NOT COLLECTED. Performed By: #### L 500.2500 ####[facility] [address] [place], [address] EST GFR - AA Normal >60 [facility] Comment on above: Order Comment: Call MD with results STAT Result Comment: NOT COLLECTED. Performed By: #### L 500.2500 ####[facility] [address] [place], [address] GAP Normal 5-15 [facility] Comment on above: Order Comment: Call MD with results STAT Result Comment: NOT COLLECTED. Performed By: #### L 500.2500 ####[facility] [address] [place], [address] GLU Normal 74-106 [facility] Comment on above: Order Comment: Call MD with results STAT Result Comment: NOT COLLECTED. Performed By: #### L 500.2500 ####[facility] [address] [place], [address] Potassium Normal 3.5-5.1 [facility] [facility] Comment on above: Order Comment: Call MD with results STAT Result Comment: NOT COLLECTED. Performed By: #### L 500.2500 ####[facility] [address] [place], [address] Basic Metabolic Profile (BMP) Normal 136-145 [facility] Comment on above: Order Comment: Call MD with results STAT Result Comment: NOT COLLECTED. Performed By: #### L 500.2500 ####[facility] [address] [place], [address] BUN/CRE 19.6 RATIO Normal 10-20 [facility] Comment on above: Performed By: #### L 500.2500 ####[facility] [address] [place], [address] CA,Total 8.0 mg/dL Low 8.5-10.1 [facility] Comment on above: Performed By: #### L 500.2500 ####[facility] [address] [place], [address] Chloride [Moles/Vol] 112 mmol/L High 98-107 [facility] Comment on above: Performed By: #### L 500.2500 ####[facility] [address] [place], [address] CO2 [Moles/Vol] 18.0 mmol/L Low 21.0-32.0 [facility] Comment on above: Performed By: #### L 500.2500 ####[facility] [address] [place], [address] Creatinine [Mass/Vol] 0.87 mg/dL Normal 0.55-1.02 [facility] Comment on above: Result Comment: The validity of the calculated GFR GFRAA in patients over70 years has not been determined. Clinical correlation isessential. Performed By: #### L 500.2500 ####[facility] [address] [place], [address] ECRCL 99.71 ml/min Normal [facility] Comment on above: Performed By: #### L 500.2500 ####[facility] [address] [place] [address] EST GFR - AA 99 mL/min Normal >60 [facility] Comment on above: Result Comment: Afri can Cuban GFR Calc Performed By: #### L 500.2500 ####[facility] [address] [place] [address] GAP 10 Normal 5-15 [facility] Comment on above: Performed By: #### L 500.2500 ####[facility] [address] [place] [address] GFR/1.73 sq M.predicted among non-blacks MDRD (S/P/Bld) [Vol rate/Area] 82 mL/min/{1.73_m2} Normal >60 [facility] Comment on above: Result Comment: Non- GFR Calc Performed By: #### L 500.2500 ####[facility] [address] [place] [id number] Glucose [Mass/Vol] 189 mg/dL High 74-106 [facility] Comment on above: Result Comment: Fast ing Glucose result greater than or equal to 126 mg/dLsuggests DIABETES MELLITUS per A.D.A. criteria. Performed By: #### L 500.2500 ####[facility] [address] [place], [address] Potassium [Moles/Vol] 3.8 mmol/L Normal 3.5-5.1 [facility] Comment on above: Performed By: #### L 500.2500 ####[facility] [address] [place], [address] Sodium [Moles/Vol] 140 mmol/L Normal 136-145 [facility] Comment on above: Performed By: #### L 500.2500 ####[facility] [address] [place], [address] Urea nitrogen [Mass/Vol] 17 mg/dL Normal 7-18 [facility] Comment on above: Performed By: #### L 500.2500 ####[facility] [address] [place], [address] BUN Normal 7-18 [facility] Comment on above: Order Comment: Call MD with results STAT Result Comment: NOT COLLECTED. Performed By: #### L 500.2500 ####[facility] [address] [place], [address] BUN/CRE Normal 10-20 [facility] Comment on above: Order Comment: Call MD with results STAT Result Comment: NOT COLLECTED. Performed By: #### L 500.2500 ####[facility] [address] [place], [address] CA,Total Normal 8.5-10.1 [facility] Comment on above: Order Comment: Call MD with results STAT Result Comment: NOT COLLECTED. Performed By: #### L 500.2500 ####[facility] [address] [place], [address] CL Normal 98-107 [facility] Comment on above: Order Comment: Call MD with results STAT Result Comment: NOT COLLECTED. Performed By: #### L 500.2500 ####[facility] [address] [place], [address] CO2 Normal 21.0-32.0 [facility] Comment on above: Order Comment: Call MD with results STAT Result Comment: NOT COLLECTED. Performed By: #### L 500.2500 ####[facility] [address] [place], [address] CREAT,SERUM Normal 0.55-1.02 [facility] Comment on above: Order Comment: Call MD with results STAT Result Comment: NOT COLLECTED. Performed By: #### L 500.2500 ####[facility] [address] [place], [address] EST GFR Normal >60 [facility] Comment on above: Order Comment: Call MD with results STAT Result Comment: NOT COLLECTED. Performed By: #### L 500.2500 ####[facility] [address] [place], [address] EST GFR - AA Normal >60 [facility] Comment on above: Order Comment: Call MD with results STAT Result Comment: NOT COLLECTED. Performed By: #### L 500.2500 ####[facility] [address] [place], [address] GAP Normal 5-15 [facility] Comment on above: Order Comment: Call MD with results STAT Result Comment: NOT COLLECTED. Performed By: #### L 500.2500 ####[facility] [address] [place], [address] GLU Normal 74-106 [facility] Comment on above: Order Comment: Call MD with results STAT Result Comment: NOT COLLECTED. Performed By: #### L 500.2500 ####[facility] [address] [place], [address] Potassium Normal 3.5-5.1 [facility] Comment on above: Order Comment: Call MD with results STAT Result Comment: NOT COLLECTED. Performed By: #### L 500.2500 ####[facility] [address] [place], [address] Basic Metabolic Profile (BMP) Normal 136-145 [facility] Comment on above: Order Comment: Call MD with results STAT Result Comment: NOT COLLECTED. Performed By: #### L 500.2500 ####[facility] [address] [place], [address] BUN/CRE 19.6 RATIO Normal 10-20 [facility] Comment on above: Order Comment: Call MD with results STAT Performed By: #### L 500.2500 ####[facility] [address] [place], [address] CA,Total 7.9 mg/dL Low 8.5-10.1 [facility] Comment on above: Order Comment: Call MD with results STAT Performed By: #### L 500.2500 ####[facility] [address] [place], [address] Chloride [Moles/Vol] 112 mmol/L High 98-107 [facility] Comment on above: Order Comment: Call MD with results STAT Performed By: #### L 500.2500 ####[facility] [address] [place], [address] CO2 [Moles/Vol] 17.0 mmol/L Low 21.0-32.0 [facility] Comment on above: Order Comment: Call MD with results STAT Performed By: #### L 500.2500 ####[facility] [address] [place], [address] Creatinine [Mass/Vol] 1.02 mg/dL Normal 0.55-1.02 [facility] Comment on above: Order Comment: Call MD with results STAT Result Comment: The validity of the calculated GFR GFRAA in patients over70 years has not been determined. Clinical correlation isessential. Performed By: #### L 500.2500 ####[facility] [address] [place], [address] ECRCL 82.09 ml/min Normal [facility] Comment on above: Order Comment: Call MD with results STAT Performed By: #### L 500.2500 ####[facility] [address] [place], [address] EST GFR - AA 82 mL/min Normal >60 [facility] Comment on above: Order Comment: Call MD with results STAT Result Comment: Afri can Cuban GFR Calc Performed By: #### L 500.2500 ####[facility] [address] [place], [address] GAP 10 Normal 5-15 [facility] Comment on above: Order Comment: Call MD with results STAT Performed By: #### L 500.2500 ####[facility] [address] [place], [address] GFR/1.73 sq M.predicted among non-blacks MDRD (S/P/Bld) [Vol rate/Area] 68 mL/min/{1.73_m2} Normal >60 [facility] Comment on above: Order Comment: Call MD with results STAT Result Comment: Non- GFR Calc Performed By: #### L 500.2500 ####[facility] [address] [place], [address] Glucose [Mass/Vol] 168 mg/dL High 74-106 [facility] Comment on above: Order Comment: Call MD with results STAT Result Comment: Fast ing Glucose result greater than or equal to 126 mg/dLsuggests DIABETES MELLITUS per A.D.A. criteria. Performed By: #### L 500.2500 ####[facility] [address] [place], [address] Potassium [Moles/Vol] 3.7 mmol/L Normal 3.5-5.1 [facility] Comment on above: Order Comment: Call MD with results STAT Performed By: #### L 500.2500 ####[facility] [address] [place], [address] Sodium [Moles/Vol] 139 mmol/L Normal 136-145 [facility] Comment on above: Order Comment: Call MD with results STAT Performed By: #### L 500.2500 ####[facility] [address] [place], [address] Urea nitrogen [Mass/Vol] 20 mg/dL High 7-18 [facility] Comment on above: Order Comment: Call MD with results STAT Performed By: #### L 500.2500 ####[facility] [address] [place], [address] Bedside Glucoseon 06-08-2024 FINGERSTICK GLU 191 mg/dL High 74-106 [facility] Comment on above: Result Comment: EDGAR GEMENT OF PATIENT CARE PER NURSING PROTOCOL Performed By: #### L 501.080 ####[facility] [address] [place] [address] FINGERSTICK GLU 198 mg/dL High 74-106 [facility] Comment on above: Result Comment: EDGAR GEMENT OF PATIENT CARE PER NURSING PROTOCOL Performed By: #### L 501.080 ####[facility] [address] [place] [address] FINGERSTICK GLU 247 mg/dL High 74-106 [facility] Comment on above: Result Comment: EDGAR GEMENT OF PATIENT CARE PER NURSING PROTOCOL Performed By: #### L 501.080 ####[facility] [address] [place], [address] FINGERSTICK GLU 252 mg/dL High 74-106 [facility] Comment on above: Result Comment: EDGAR GEMENT OF PATIENT CARE PER NURSING PROTOCOL Performed By: #### L 501.080 ####[facility] [address] [place], [address] FINGERSTICK GLU 205 mg/dL High 74-106 [facility] Comment on above: Result Comment: EDGAR GEMENT OF PATIENT CARE PER NURSING PROTOCOL Performed By: #### L 501.080 ####[facility] [address] [place] [address] FINGERSTICK GLU 151 mg/dL High 74-106 [facility] Comment on above: Result Comment: EDGAR GEMENT OF PATIENT CARE PER NURSING PROTOCOL Performed By: #### L 501.080 ####[facility] [address] [place], [address] FINGERSTICK GLU 176 mg/dL High 74-106 [facility] Comment on above: Result Comment: EDGAR GEMENT OF PATIENT CARE PER NURSING PROTOCOL Performed By: #### L 501.080 ####[facility] [address] [place], [address] FINGERSTICK GLU 121 mg/dL High 74-106 [facility] Comment on above: Result Comment: EDGAR GEMENT OF PATIENT CARE PER NURSING PROTOCOL Performed By: #### L 501.080 ####[facility] [address] [place], [address] FINGERSTICK GLU 108 mg/dL High 74-106 [facility] Comment on above: Result Comment: EDGAR GEMENT OF PATIENT CARE PER NURSING PROTOCOL Performed By: #### L 501.080 ####[facility] [address] [place], [address] FINGERSTICK GLU 114 mg/dL High 74-106 [facility] Comment on above: Result Comment: EDGAR GEMENT OF PATIENT CARE PER NURSING PROTOCOL Performed By: #### L 501.080 ####[facility] [address] [place], [address] FINGERSTICK GLU 236 mg/dL High 74-106 [facility] Comment on above: Result Comment: EDGAR GEMENT OF PATIENT CARE PER NURSING PROTOCOL Performed By: #### L 501.080 ####[facility] [address] [place], [address] FINGERSTICK GLU 251 mg/dL High 74-106 [facility] Comment on above: Result Comment: EDGAR GEMENT OF PATIENT CARE PER NURSING PROTOCOL Performed By: #### L 501.080 ####[facility] [address] [place], [address] FINGERSTICK GLU 261 mg/dL High 74-106 [facility] Comment on above: Result Comment: EDGAR GEMENT OF PATIENT CARE PER NURSING PROTOCOL Performed By: #### L 501.080 ####[facility] [address] [place], [address] FINGERSTICK GLU 402 mg/dL High 74-106 [facility] Comment on above: Result Comment: EDGAR GEMENT OF PATIENT CARE PER NURSING PROTOCOL Performed By: #### L 501.080 ####[facility] [address] [place], [address] FINGERSTICK GLU 324 mg/dL High 74-106 [facility] Comment on above: Result Comment: EDGAR GEMENT OF PATIENT CARE PER NURSING PROTOCOL Performed By: #### L 501.080 ####[facility] [address] [place], [address] Blood Gases by [facility] 024 GEM TEST Positive Normal [facility] Comment on above: Performed By: #### L 9000.0800 ####[facility] [address] [place], [address] Base excess Calc (Bld) [Moles/Vol] -14 mmol/L Low -2 to +2 [facility] Comment on above: Performed By: #### L 9000.0800 ####[facility] [address] [place], [address] Blood Gas Type ART Normal [facility] Comment on above: Performed By: #### L 9000.0800 ####[facility] [address] [place], [address] CO2 [Moles/Vol] 11 mmol/L Normal [facility] Comment on above: Performed By: #### L 9000.0800 ####[facility] [address] [place], [address] FI02 21.0 Normal [facility] Comment on above: Performed By: #### L 9000.0800 ####[facility] [address] [place], [address] HCO3 (Bld) [Moles/Vol] 10.7 mmol/L Low 22-26 [facility] Comment on above: Performed By: #### L 9000.0800 ####[facility] [address] [place], [address] Mode Not entered [facility] Comment on above: Performed By: #### L 9000.0800 ####[facility] [address] [place], [address] O2 Delivery Dev Room Air [facility] Comment on above: Performed By: #### L 9000.0800 ####[facility] [address] [place], [address] pCO2 17.9 mmHg Invalid Interpretation Code 35-45 [facility] Comment on above: Performed By: #### L 9000.0800 ####[facility] [address] [place], [address] pH (Bld) 7.39 [pH] Normal 7.35-7.45 [facility] Comment on above: Performed By: #### L 9000.0800 ####[facility] [address] [place], [address] PO2 114 mmHG High 75-100 [facility] Comment on above: Performed By: #### L 9000.0800 ####[facility] [address] [place], [address] Read Back By Yes [facility] Comment on above: Performed By: #### L 9000.0800 ####[facility] [address] [place], [address] Results To denia [facility] Comment on above: Performed By: #### L 0.0800 ####[facility] [address] [place], [address] SITE L Radial Normal [facility] Comment on above: Performed By: #### L 0.0800 ####[facility] [address] [place], [address] SO2 99 Normal 95-99 [facility] Comment on above: Performed By: #### L 8999.0800 ####[facility] [address] [place], [address] Time Given 09:45:00 Normal [facility] Comment on above: Performed By: #### L 0.0800 ####[facility] [address] [place], [address] CBC W/Diff, Automatedon 10-1 Absolute Lymph 0.71 X10 3/uL Low 0.83-4.51 [facility] Comment on above: Performed By: #### L 501.5200, L100.0100, L500.4050 ####[facility] [address] [place], [address] Absolute Neut 19.8 X10 3/uL High 2.0-7.7 [facility] Comment on above: Performed By: #### L 501.5200, L100.0100, L500.4050 ####[facility] [address] [place], [address] Basophils/100 WBC (Bld) 0.1 % Normal 0-1 [facility] Comment on above: Performed By: #### L 501.5200, L100.0100, L500.4050 ####[facility] [address] [place], [address] Eosinophils/100 WBC (Bld) 0.0 % Normal 0-5 [facility] Comment on above: Performed By: #### L 501.5200, L100.0100, L500.4050 ####[facility] [address] [place], [address] Erythrocyte distribution width (RBC) [Ratio] 12.9 % Normal 11.6-14.6 [facility] Comment on above: Performed By: #### L 501.5200, L100.0100, L500.4050 ####[facility] [address] [place], [address] Hematocrit (Bld) [Volume fraction] 41.0 % Normal 37-47 [facility] Comment on above: Performed By: #### L 501.5200, L100.0100, L500.4050 ####[facility] [address] [place], [address] Hemoglobin (Bld) [Mass/Vol] 13.2 g/dL Normal 12.0-15.0 [facility] Comment on above: Performed By: #### L 501.5200, L100.0100, L500.4050 ####[facility] [address] [place], [address] IG% 0.900 Normal 0.0-0.9 [facility] Comment on above: Result Comment: IG% - Immature Granulocytes (promyelocytes, myelocytes andmetamyelocytes) > 1% indicates that a LEFT SHIFT is Present. Performed By: #### L 501.5200, L100.0100, L500.4050 ####[facility] [address] [place], [address] Lymphocytes/100 WBC (Bld) 3.3 % Low 19-41 [facility] Comment on above: Performed By: #### L 501.5200, L100.0100, L500.4050 ####[facility] [address] [place], [address] MCH (RBC) [Entitic mass] 29.7 pg Normal 27.0-32.0 [facility] Comment on above: Performed By: #### L 501.5200, L100.0100, L500.4050 ####[facility] [address] [place], [address] MCHC (RBC) [Mass/Vol] 32.2 g/dL Normal 32-36 [facility] Comment on above: Performed By: #### L 501.5200, L100.0100, L500.4050 ####[facility] [address] [place], [address] MCV (RBC) [Entitic vol] 92.1 fL Normal 81-99 [facility] Comment on above: Performed By: #### L 501.5200, L100.0100, L500.4050 ####[facility] [address] [place], [address] Monocytes/100 WBC (Bld) 4.9 % Normal 0-10 [facility] Comment on above: Performed By: #### L 501.5200, L100.0100, L500.4050 ####[facility] [address] [place], [address] Neutrophils/100 WBC (Bld) 90.8 % High 47-70 [facility] Comment on above: Performed By: #### L 501.5200, L100.0100, L500.4050 ####[facility] [address] [place], [address] Nucleated RBC (Bld) [#/Vol] 0 10*3/uL Normal 0-5 [facility] Comment on above: Performed By: #### L 501.5200, L100.0100, L500.4050 ####[facility] [address] [place], [address] Platelet mean volume (Bld) [Entitic vol] 13.6 fL High 6.2-12.0 [facility] Comment on above: Performed By: #### L 501.5200, L100.0100, L500.4050 ####[facility] [address] [place], [address] Platelets (Bld) [#/Vol] 171 10*3/uL Normal 150-450 [facility] Comment on above: Performed By: #### L 501.5200, L100.0100, L500.4050 ####[facility] [address] [place], [address] RBC (Bld) [#/Vol] 4.45 10*6/uL Normal 4.2-5.4 [facility] Comment on above: Performed By: #### L 501.5200, L100.0100, L500.4050 ####[facility] [address] [place], [address] RDW SD 43.6 fl Normal 35.1-43.9 [facility] Comment on above: Performed By: #### L 501.5200, L100.0100, L500.4050 ####[facility] [address] [place], [address] WBC (Bld) [#/Vol] 21.8 10*3/uL High 4.4-11.0 [facility] Comment on above: Performed By: #### L 501.5200, L100.0100, L500.4050 ####[facility] [address] [place], [address] Comprehensive Metabolic Prof ilon 06-08-2024 Albumin [Mass/Vol] 3.9 g/dL Normal 3.2-5.0 [facility] Comment on above: Performed By: #### L 501.5200, L100.0100, L500.4050 ####[facility] [address] [place], [address] Albumin/Globulin [Mass ratio] 1.2 {ratio} Normal 0.9-2.4 [facility] Comment on above: Performed By: #### L 501.5200, L100.0100, L500.4050 ####[facility] [address] [place], [address] ALK P 90 U/L Normal 45-117 [facility] Comment on above: Performed By: #### L 501.5200, L100.0100, L500.4050 ####[facility] [address] [place], [address] ALT [Catalytic activity/Vol] 21 U/L Normal 13-56 [facility] Comment on above: Performed By: #### L 501.5200, L100.0100, L500.4050 ####[facility] [address] [place], [address] AST [Catalytic activity/Vol] 15 U/L Normal 15-37 [facility] Comment on above: Performed By: #### L 501.5200, L100.0100, L500.4050 ####[facility] [address] [place], [address] Bilirubin [Mass/Vol] 1.30 mg/dL High 0.20-1.00 [facility] Comment on above: Result Comment: For patients on eltrombopag therapy, use of Dimension [place] TBIL is not recommended. Performed By: #### L 501.5200, L100.0100, L500.4050 ####[facility] [address] [place], [address] BUN/CRE 22.0 RATIO High 10-20 [facility] Comment on above: Performed By: #### L 501.5200, L100.0100, L500.4050 ####[facility] [address] [place], [address] CA,Total 8.9 mg/dL Normal 8.5-10.1 [facility] Comment on above: Performed By: #### L 501.5200, L100.0100, L500.4050 ####[facility] [address] [place], [address] Chloride [Moles/Vol] 100 mmol/L Normal 98-107 [facility] Comment on above: Performed By: #### L 501.5200, L100.0100, L500.4050 ####[facility] [address] [place], [address] CO2 [Moles/Vol] 12.0 mmol/L Low 21.0-32.0 [facility] Comment on above: Performed By: #### L 501.5200, L100.0100, L500.4050 ####[facility] [address] [place], [address] Creatinine [Mass/Vol] 1.00 mg/dL Normal 0.55-1.02 [facility] Comment on above: Result Comment: The validity of the calculated GFR GFRAA in patients over70 years has not been determined. Clinical correlation isessential. Performed By: #### L 501.5200, L100.0100, L500.4050 ####[facility] [address] [place], [address] ECRCL 83.74 ml/min Normal [facility] Comment on above: Performed By: #### L 501.5200, L100.0100, L500.4050 ####[facility] [address] [place], [address] EST GFR - AA 84 mL/min Normal >60 [facility] Comment on above: Result Comment: Afri can Cuban GFR Calc Performed By: #### L 501.5200, L100.0100, L500.4050 ####[facility] [address] [place], [address] GAP 18 High 5-15 [facility] Comment on above: Performed By: #### L 501.5200, L100.0100, L500.4050 ####[facility] [address] [place], [address] GFR/1.73 sq M.predicted among non-blacks MDRD (S/P/Bld) [Vol rate/Area] 69 mL/min/{1.73_m2} Normal >60 [facility] Comment on above: Result Comment: Non- GFR Calc Performed By: #### L 501.5200, L100.0100, L500.4050 ####[facility] [address] [place], [address] Globulin (S) [Mass/Vol] 3.2 g/dL Normal 2.2-4.2 [facility] Comment on above: Performed By: #### L 501.5200, L100.0100, L500.4050 ####[facility] [address] [place], [address] Glucose [Mass/Vol] 398 mg/dL High 74-106 [facility] Comment on above: Result Comment: Gluc ose result greater than or equal to 200 mg/dLsuggests DIABETES MELLITUS per A.D.A. criteria. Performed By: #### L 501.5200, L100.0100, L500.4050 ####[facility] [address] [place], [address] Potassium [Moles/Vol] 4.2 mmol/L Normal 3.5-5.1 [facility] Comment on above: Performed By: #### L 501.5200, L100.0100, L500.4050 ####[facility] [address] [place], [address] Sodium [Moles/Vol] 131 mmol/L Low 136-145 [facility] Comment on above: Performed By: #### L 501.5200, L100.0100, L500.4050 ####[facility] [address] [place], [address] T PROT 7.1 g/dL Normal 6.4-8.2 [facility] Comment on above: Performed By: #### L 501.5200, L100.0100, L500.4050 ####[facility] [address] [place], [address] Urea nitrogen [Mass/Vol] 22 mg/dL High 7-18 [facility] Comment on above: Performed By: #### L 501.5200, L100.0100, L500.4050 ####[facility] [address] [place], [address] Hemoglobin A1con 06-08-2024 HbA1c (Bld) [Mass fraction] 8.6 % High 3.8-5.6 [facility] Comment on above: Result Comment: Norm al < 5.7 % Prediabetic 5.7 - 6.4 % Diabetic >or= 6.5 % Please note range changes. Performed By: #### L 501.9965 ####[facility] [address] [place], [address] Magnesiumon 06-08-2024 Magnesium [Mass/Vol] 1.8 mg/dL Normal 1.6-2.6 [facility] Comment on above: Performed By: #### L 501.5200, L100.0100, L500.4050 ####[facility] [address] [place], [address] Abdomen/Pelvis W IV Cont ONL Yon 06-07-2024 Abdomen/Pelvis W IV Cont ONLY Normal [facility] Bedside Glucoseon 06-07-2024 FINGERSTICK GLU 422 mg/dL High 74-106 [facility] Comment on above: Result Comment: EDGAR GEMENT OF PATIENT CARE PER NURSING PROTOCOL Performed By: #### L 501.080 ####[facility] [address] [place], [address] FINGERSTICK GLU 331 mg/dL High 74-106 [facility] Comment on above: Result Comment: EDGAR HUNG OF PATIENT CARE PER NURSING PROTOCOL Performed By: #### L 501.080 ####[facility] [address] [place], [address] CBC W/Diff, Automatedon 10- Absolute Lymph 0.76 X10 3/uL Low 0.83-4.51 [facility] Comment on above: Performed By: #### L 500.4050, L501.4020, L100.0100, L501.2450 ####[facility] [address] [place], [address] Absolute Neut 14.6 X10 3/uL High 2.0-7.7 [facility] Comment on above: Performed By: #### L 500.4050, L501.4020, L100.0100, L501.2450 ####[facility] [address] [place], [address] Basophils/100 WBC (Bld) 0.3 % Normal 0-1 [facility] Comment on above: Performed By: #### L 500.4050, L501.4020, L100.0100, L501.2450 ####[facility] [address] [place], [address] Eosinophils/100 WBC (Bld) 0.0 % Normal 0-5 [facility] Comment on above: Performed By: #### L 500.4050, L501.4020, L100.0100, L501.2450 ####[facility] [address] [place], [address] Erythrocyte distribution width (RBC) [Ratio] 12.3 % Normal 11.6-14.6 [facility] Comment on above: Performed By: #### L 500.4050, L501.4020, L100.0100, L501.2450 ####[facility] [address] [place], [address] Hematocrit (Bld) [Volume fraction] 39.5 % Normal 37-47 [facility] Comment on above: Performed By: #### L 500.4050, L501.4020, L100.0100, L501.2450 ####[facility] [address] [place], [address] Hemoglobin (Bld) [Mass/Vol] 13.4 g/dL Normal 12.0-15.0 [facility] Comment on above: Performed By: #### L 500.4050, L501.4020, L100.0100, L501.2450 ####[facility] [address] [place], [address] IG% 0.900 Normal 0.0-0.9 [facility] Comment on above: Result Comment: IG% - Immature Granulocytes (promyelocytes, myelocytes andmetamyelocytes) > 1% indicates that a LEFT SHIFT is Present. Performed By: #### L 500.4050, L501.4020, L100.0100, L501.2450 ####[facility] [address] [place], [address] Lymphocytes/100 WBC (Bld) 4.8 % Low 19-41 [facility] Comment on above: Performed By: #### L 500.4050, L501.4020, L100.0100, L501.2450 ####[facility] [address] [place], [address] MCH (RBC) [Entitic mass] 29.2 pg Normal 27.0-32.0 [facility] Comment on above: Performed By: #### L 500.4050, L501.4020, L100.0100, L501.2450 ####[facility] [address] [place], [address] MCHC (RBC) [Mass/Vol] 33.9 g/dL Normal 32-36 [facility] Comment on above: Performed By: #### L 500.4050, L501.4020, L100.0100, L501.2450 ####[facility] [address] [place], [address] MCV (RBC) [Entitic vol] 86.1 fL Normal 81-99 [facility] Comment on above: Performed By: #### L 500.4050, L501.4020, L100.0100, L501.2450 ####[facility] [address] [place], [address] Monocytes/100 WBC (Bld) 2.6 % Normal 0-10 [facility] Comment on above: Performed By: #### L 500.4050, L501.4020, L100.0100, L501.2450 ####[facility] [address] [place], [address] Neutrophils/100 WBC (Bld) 91.4 % High 47-70 [facility] Comment on above: Performed By: #### L 500.4050, L501.4020, L100.0100, L501.2450 ####[facility] [address] [place], [address] Nucleated RBC (Bld) [#/Vol] 0 10*3/uL Normal 0-5 [facility] Comment on above: Performed By: #### L 500.4050, L501.4020, L100.0100, L501.2450 ####[facility] [address] [place], [address] Platelet mean volume (Bld) [Entitic vol] 13.6 fL High 6.2-12.0 [facility] Comment on above: Performed By: #### L 500.4050, L501.4020, L100.0100, L501.2450 ####[facility] [address] [place], [address] Platelets (Bld) [#/Vol] 167 10*3/uL Normal 150-450 [facility] Comment on above: Performed By: #### L 500.4050, L501.4020, L100.0100, L501.2450 ####[facility] [address] [place], [address] RBC (Bld) [#/Vol] 4.59 10*6/uL Normal 4.2-5.4 [facility] Comment on above: Performed By: #### L 500.4050, L501.4020, L100.0100, L501.2450 ####[facility] [address] [place], [address] RDW SD 38.5 fl Normal 35.1-43.9 [facility] Comment on above: Performed By: #### L 500.4050, L501.4020, L100.0100, L501.2450 ####[facility] [address] [place], [address] WBC (Bld) [#/Vol] 16.0 10*3/uL High 4.4-11.0 [facility] Comment on above: Performed By: #### L 500.4050, L501.4020, L100.0100, L501.2450 ####[facility] [address] [place], [address] Comprehensive Metabolic Prof ilon 06-07-2024 Albumin [Mass/Vol] 4.1 g/dL Normal 3.2-5.0 [facility] Comment on above: Order Comment: 'TROP ' Serial specimen #1, #2 or #3: 1 Performed By: #### L 500.4050, L501.4020, L100.0100, L501.2450 ####[facility] [address] [place], [address] Albumin/Globulin [Mass ratio] 1.2 {ratio} Normal 0.9-2.4 [facility] Comment on above: Order Comment: 'TROP ' Serial specimen #1, #2 or #3: 1 Performed By: #### L 500.4050, L501.4020, L100.0100, L501.2450 ####[facility] [address] [place], [address] ALK P 87 U/L Normal 45-117 [facility] Comment on above: Order Comment: 'TROP ' Serial specimen #1, #2 or #3: 1 Performed By: #### L 500.4050, L501.4020, L100.0100, L501.2450 ####[facility] [address] [place], [address] ALT [Catalytic activity/Vol] 25 U/L Normal 13-56 [facility] Comment on above: Order Comment: 'TROP ' Serial specimen #1, #2 or #3: 1 Performed By: #### L 500.4050, L501.4020, L100.0100, L501.2450 ####[facility] [address] [place], [address] AST [Catalytic activity/Vol] 15 U/L Normal 15-37 [facility] Comment on above: Order Comment: 'TROP ' Serial specimen #1, #2 or #3: 1 Performed By: #### L 500.4050, L501.4020, L100.0100, L501.2450 ####[facility] [address] [place], [address] Bilirubin [Mass/Vol] 1.30 mg/dL High 0.20-1.00 [facility] Comment on above: Order Comment: 'TROP ' Serial specimen #1, #2 or #3: 1 Result Comment: For patients on eltrombopag therapy, use of Dimension [place] TBIL is not recommended. Performed By: #### L 500.4050, L501.4020, L100.0100, L501.2450 ####[facility] [address] [place], [address] BUN/CRE 19.1 RATIO Normal 10-20 [facility] Comment on above: Order Comment: 'TROP ' Serial specimen #1, #2 or #3: 1 Performed By: #### L 500.4050, L501.4020, L100.0100, L501.2450 ####[facility] [address] [place], [address] CA,Total 9.5 mg/dL Normal 8.5-10.1 [facility] Comment on above: Order Comment: 'TROP ' Serial specimen #1, #2 or #3: 1 Performed By: #### L 500.4050, L501.4020, L100.0100, L501.2450 ####[facility] [address] [place], [address] Chloride [Moles/Vol] 105 mmol/L Normal 98-107 [facility] Comment on above: Order Comment: 'TROP ' Serial specimen #1, #2 or #3: 1 Performed By: #### L 500.4050, L501.4020, L100.0100, L501.2450 ####[facility] [address] [place], [address] CO2 [Moles/Vol] 17.0 mmol/L Low 21.0-32.0 [facility] Comment on above: Order Comment: 'TROP ' Serial specimen #1, #2 or #3: 1 Performed By: #### L 500.4050, L501.4020, L100.0100, L501.2450 ####[facility] [address] [place], [address] Creatinine [Mass/Vol] 0.94 mg/dL Normal 0.55-1.02 [facility] Comment on above: Order Comment: 'TROP ' Serial specimen #1, #2 or #3: 1 Result Comment: The validity of the calculated GFR GFRAA in patients over70 years has not been determined. Clinical correlation isessential. Performed By: #### L 500.4050, L501.4020, L100.0100, L501.2450 ####[facility] [address] [place], [address] ECRCL 92.29 ml/min Normal [facility] Comment on above: Order Comment: 'TROP ' Serial specimen #1, #2 or #3: 1 Performed By: #### L 500.4050, L501.4020, L100.0100, L501.2450 ####[facility] [address] [place], [address] EST GFR - AA 90 mL/min Normal >60 [facility] Comment on above: Order Comment: 'TROP ' Serial specimen #1, #2 or #3: 1 Result Comment: Afri can Cuban GFR Calc Performed By: #### L 500.4050, L501.4020, L100.0100, L501.2450 ####[facility] [address] [place], [address] GAP 14 Normal 5-15 [facility] Comment on above: Order Comment: 'TROP ' Serial specimen #1, #2 or #3: 1 Performed By: #### L 500.4050, L501.4020, L100.0100, L501.2450 ####[facility] [address] [place], [address] GFR/1.73 sq M.predicted among non-blacks MDRD (S/P/Bld) [Vol rate/Area] 74 mL/min/{1.73_m2} Normal >60 [facility] Comment on above: Order Comment: 'TROP ' Serial specimen #1, #2 or #3: 1 Result Comment: Non- GFR Calc Performed By: #### L 500.4050, L501.4020, L100.0100, L501.2450 ####[facility] [address] [place], [address] Globulin (S) [Mass/Vol] 3.5 g/dL Normal 2.2-4.2 [facility] Comment on above: Order Comment: 'TROP ' Serial specimen #1, #2 or #3: 1 Performed By: #### L 500.4050, L501.4020, L100.0100, L501.2450 ####[facility] [address] [place], [address] Glucose [Mass/Vol] 355 mg/dL High 74-106 [facility] Comment on above: Order Comment: 'TROP ' Serial specimen #1, #2 or #3: 1 Result Comment: Gluc ose result greater than or equal to 200 mg/dLsuggests DIABETES MELLITUS per A.D.A. criteria. Performed By: #### L 500.4050, L501.4020, L100.0100, L501.2450 ####[facility] [address] [place], [address] Potassium [Moles/Vol] 3.4 mmol/L Low 3.5-5.1 [facility] Comment on above: Order Comment: 'TROP ' Serial specimen #1, #2 or #3: 1 Performed By: #### L 500.4050, L501.4020, L100.0100, L501.2450 ####[facility] [address] [place], [address] Sodium [Moles/Vol] 136 mmol/L Normal 136-145 [facility] Comment on above: Order Comment: 'TROP ' Serial specimen #1, #2 or #3: 1 Performed By: #### L 500.4050, L501.4020, L100.0100, L501.2450 ####[facility] [address] [place], [address] T PROT 7.6 g/dL Normal 6.4-8.2 [facility] Comment on above: Order Comment: 'TROP ' Serial specimen #1, #2 or #3: 1 Performed By: #### L 500.4050, L501.4020, L100.0100, L501.2450 ####[facility] [address] [place], [address] Urea nitrogen [Mass/Vol] 18 mg/dL Normal 7-18 [facility] Comment on above: Order Comment: 'TROP ' Serial specimen #1, #2 or #3: 1 Performed By: #### L 500.4050, L501.4020, L100.0100, L501.2450 ####[facility] [address] [place], [address] Emergency Department Summary on 06-07-2024 Emergency Department Summary Normal [facility] H AND P Exam - Hospitaliston 06-07-2024 H&P Exam - Hospitalist Normal [facility] L501.4020on 06-07-2024 TROPONIN-I HS 4 pg/mL Normal 3.0-54.0 [facility] Comment on above: Order Comment: 'TROP ' Serial specimen #1, #2 or #3: 1 Result Comment: Plea se Note: New Test Units and Gender Specific Reference Ranges. For more information see Policy Stat Procedure [place] High Sensitivity Troponin (TNIH) and attachments. Performed By: #### L 500.4050, L501.4020, L100.0100, L501.2450 ####[facility] [address] [place], [address] Lipaseon 06-07-2024 Lipase [Catalytic activity/Vol] 10 U/L Low 13-75 [facility] Comment on above: Order Comment: 'TROP ' Serial specimen #1, #2 or #3: 1 Result Comment: Plea se note:LIPASE revised reference range effective 22.New Lipase methodology. Expected to produce lower valuesthan the previous assay method.NEW Reference Range: 13 - 75 U/L Performed By: #### L 500.4050, L501.4020, L100.0100, L501.2450 ####[facility] [address] [place], [address] ,Urineon 06-07-2024 Beta HCG ( test) Ql (U) Negative Normal [facility] Comment on above: Order Comment: CLEAN CATCH Result Comment: Very dilute urine specimens, as indicated by a low specificgravity, may not contain environmental marketing representative levels of hCG.If is still suspected, a first morning urinespecimen should be collected 48 hours later and tested. Performed By: #### L 400.7600, L400.0001 ####[facility] [address] [place], [address] Urinalysis, Completeon 06-07 BACTERIA 0 SEEN Normal None Seen [facility] Comment on above: Order Comment: CLEAN CATCH Performed By: #### L 400.7600, L400.0001 ####[facility] [address] [place], [address] EPI,SQUAMOUS 0 SEEN Normal 5-10 [facility] Comment on above: Order Comment: CLEAN CATCH Performed By: #### L 400.7600, L400.0001 ####[facility] [address] [place], [address] Mucus Ql (Urine sed) 0 SEEN Normal [facility] Comment on above: Order Comment: CLEAN CATCH Performed By: #### L 400.7600, L400.0001 ####[facility] [address] [place], [address] RBC 0 SEEN Normal 0-5 [facility] Comment on above: Order Comment: CLEAN CATCH Performed By: #### L 400.7600, L400.0001 ####[facility] [address] [place], [address] WBC 0 SEEN Normal 0-5 [facility] Comment on above: Order Comment: CLEAN CATCH Performed By: #### L 400.7600, L400.0001 ####[facility] [address] [place], [address] [facility] GIOVANA Telephone (ENDOIN) KATHLEEN VILLA ([id number]) 1995 F T Date Time Provider Department 05/16/24 JESSICA GUERRERO [...] pay the $3000,was told to call her machine stuffer automatic for assistance. Re Gonzalez, STIVEN 05/17/2024 10:09 AM Signed JOSE 03/12/24 Joshua CAMPA 05/28/24 Josue Pt uses [facility] for supplies Has had loaner pump x3 months through [employer] and now has to return it or pay $3000 out of pocket. Advised pt she has to call [facility] and have them send us an order form for a new pump (have to see if insurance will pay for a new pump- Old pump was 5 years old) Told pt she has to let us know if she is without a pump and needs insulin ordered. Verbalized understanding. Jessica Guerrero APRN.CNP 05/17/2024 10:25 AM Signed Lantus refill sent in. Please keep me updated if any issues. Jessica Guerrero APRN.CNP [facility] Pss, Zelda Q 05/24/2024 1:01 PM Signed Patient has to reschedule her may appt and will be completely out of her pump supplies before her next June appt. Please advise she needs her pump suppllies Re Gonzalez RN 05/24/2024 1:41 PM Signed Spoke to pt. JOSE 03/12/24 ( we can sent notes over, if needed) NOV 07/19/24 We have not received any new order forms from [facility] or [employer]. Advised pt to reach out. Allergies As [...] (post-traumatic stress disorder) [F43.10] 12/25/2012 DVT prophylaxis [JWB2842] 12/25/2012 09/04/2013 DISPOSITION AND FOLLOW-UP [V999.01] 12/25/2012 09/04/2013 HTN (hypertension) [I10] Hypertension in , antepartum [O16.9] 09/19/2013 01/08/2014 GBS (group B Streptococcus carrier), +RV cultur*11/11/2013 04/16/2014 [Z34.90] 11/22/2013 04/16/2014 Diabetes mellitus in (HCC) [O24.919] 12/25/2013 04/16/2014 Diabetic ketoacidosis without coma associated w*01/08/2014 02/04/2023 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] 01/08/2014 DVT prophylaxis [YAP1078] 02/25/2014 04/16/2014 care and examination [Z39.2] 02/25/2014 04/16/2014 Near syncope [R55] (more content not included)... Normal [facility] 36on 05-06-2024 36 Medication: Skyrizi 150mg/ml Dosing Schedule: 150mg every 12 weeks Prior Authorization: Submitted date: 05.06.2024 [place] reference #: [id number] Approval dates: 05.06.2024-08.27.2024 Caitie Light [facility] [phone] Normal [facility] 12 Lead EKGon 04-21-2024 12 Lead EKG Normal [facility] Acetone Serumon 04-21-2024 ACETONE SERUM Negative Normal NEG [facility] Comment on above: Performed By: #### L 501.6900, L500.2500 ####[facility] [address] [place], [address] Basic Metabolic Profile (BMP )on 04-21-2024 BUN/CRE 20.4 RATIO High 10-20 [facility] Comment on above: Performed By: #### L 501.6900, L500.2500 ####[facility] [address] [place], [address] CA,Total 7.3 mg/dL Low 8.5-10.1 [facility] Comment on above: Performed By: #### L 501.6900, L500.2500 ####[facility] [address] [place], [address] Chloride [Moles/Vol] 113 mmol/L High 98-107 [facility] Comment on above: Performed By: #### L 501.6900, L500.2500 ####[facility] [address] [place], [address] CO2 [Moles/Vol] 23.0 mmol/L Normal 21.0-32.0 [facility] Comment on above: Performed By: #### L 501.6900, L500.2500 ####[facility] [address] [place], [address] Creatinine [Mass/Vol] 0.68 mg/dL Normal 0.55-1.02 [facility] Comment on above: Result Comment: The validity of the calculated GFR GFRAA in patients over70 years has not been determined. Clinical correlation isessential. Performed By: #### L 501.6900, L500.2500 ####[facility] [address] [place], [address] ECRCL 127.57 ml/min Normal [facility] Comment on above: Performed By: #### L 501.6900, L500.2500 ####[facility] [address] [place], [address] EST GFR - AA 130 mL/min Normal >60 [facility] Comment on above: Result Comment: Afri can Cuban GFR Calc Performed By: #### L 501.6900, L500.2500 ####[facility] [address] [place], [address] GAP 7 Normal 5-15 [facility] Comment on above: Performed By: #### L 501.6900, L500.2500 ####[facility] [address] [place], [address] GFR/1.73 sq M.predicted among non-blacks MDRD (S/P/Bld) [Vol rate/Area] 107 mL/min/{1.73_m2} Normal >60 [facility] Comment on above: Result Comment: Non- GFR Calc Performed By: #### L 501.6900, L500.2500 ####[facility] [address] [place], [address] Glucose [Mass/Vol] 173 mg/dL High 74-106 [facility] Comment on above: Result Comment: Fast ing Glucose result greater than or equal to 126 mg/dLsuggests DIABETES MELLITUS per A.D.A. criteria. Performed By: #### L 501.6900, L500.2500 ####[facility] [address] [place], [address] Potassium [Moles/Vol] 2.7 mmol/L Invalid Interpretation Code 3.5-5.1 [facility] Comment on above: Result Comment: Crit ical Result(s) Called at: 21:44:18 04/21/2024 by: DEX. Results read back by Faith Performed By: #### L 501.6900, L500.2500 ####[facility] [address] [place], [address] Sodium [Moles/Vol] 143 mmol/L Normal 136-145 [facility] Comment on above: Performed By: #### L 501.6900, L500.2500 ####[facility] [address] [place], [address] Urea nitrogen [Mass/Vol] 14 mg/dL Normal 7-18 [facility] Comment on above: Performed By: #### L 501.6900, L500.2500 ####[facility] [address] [place], [address] CBC W/Diff, Automatedon 03-29 Anisocytosis Ql (Bld) RARE Normal [facility] Comment on above: Performed By: #### L 100.0100 ####[facility] [address] [place], [address] PLT EST MOD DEC Normal [facility] [facility] Comment on above: Performed By: #### L 100.0100 ####[facility] [address] [place], [address] RED CELL MORPH NORM C+C Normal NORM C C [facility] Comment on above: Performed By: #### L 100.0100 ####[facility] [address] [place], [address] Emergency Department Summary on 04-21-2024 Emergency Department Summary Normal [facility] Lipaseon 04-21-2024 Lipase [Catalytic activity/Vol] 14 U/L Normal 13-75 [facility] Comment on above: Result Comment: Sulma schmitz note:LIPASE revised reference range effective 22.New Lipase methodology. Expected to produce lower valuesthan the previous assay method.NEW Reference Range: 13 - 75 U/L Performed By: #### L 501.2450, L500.3400 ####[facility] [address] [place], [address] Liver Profileon 04-21-2024 Albumin [Mass/Vol] 3.0 g/dL Low 3.2-5.0 [facility] Comment on above: Performed By: #### L 501.2450, L500.3400 ####[facility] [address] [place], [address] ALK P 65 U/L Normal 45-117 [facility] Comment on above: Performed By: #### L 501.2450, L500.3400 ####[facility] [address] [place], [address] ALT [Catalytic activity/Vol] 15 U/L Normal 13-56 [facility] Comment on above: Performed By: #### L 501.2450, L500.3400 ####[facility] [address] [place], [address] AST [Catalytic activity/Vol] 10 U/L Low 15-37 [facility] Comment on above: Performed By: #### L 501.2450, L500.3400 ####[facility] [address] [place], [address] Bilirubin [Mass/Vol] 0.40 mg/dL Normal 0.20-1.00 [facility] Comment on above: Result Comment: For patients on eltrombopag therapy, use of Dimension [place] TBIL is not recommended. Performed By: #### L 501.2450, L500.3400 ####[facility] [address] [place], [address] Bilirubin.direct [Mass/Vol] 0.16 mg/dL Normal 0.00-0.30 [facility] Comment on above: Performed By: #### L 501.2450, L500.3400 ####[facility] [address] [place], [address] Globulin (S) [Mass/Vol] 2.6 g/dL Normal 2.2-4.2 [facility] Comment on above: Performed By: #### L 501.2450, L500.3400 ####[facility] [address] [place], [place], [id number] T PROT 5.6 g/dL Low 6.4-8.2 [facility] Comment on above: Performed By: #### L 501.2450, L500.3400 ####[facility] [address] [place], [place], [id number] ,Serum,hCG Quali.on 04-21-2024 HCG, SERUM QUAL Negative Normal [facility] Comment on above: Performed By: #### L 700.3105 ####[facility] [address] [place], [place], [id number] CNOVon 03-12-2024 CNOV Office Visit (ENDOIN ) KATHLEEN VILLA ([id number]) 1995 F T Date Time Provider Department 03/12/24 2:00 PM [...] Hyperglycemia: Yes, but rare Type of Monitor: Gyst 630G/ Guardian Frequency of Monitorin-8 times a [...] 12/23/2020 LDL Cholesterol due on 02/04/2022 Covid-19 Vaccine(1 - season) Never done Diabetic Foot Exam due [...] Trigly (more content not included)... Normal [facility] HEMOGLOBIN A1C (POC)on 03-12 HbA1c (Bld) [Mass fraction] 8.8 % Abnormal 4.3 - 5.6 % [facility] Comment on above: Location:[facility] [address], [address] [place] [address], [place], [place], [address] Point of care (POC) Hemoglobin A1c (HGBA1C) [...] specific diabetes management situations: The POC device bus and rail operator provides a normal range of 4.2% to 6.5% for the HGBA1C POC test. However, the [place] [employer] guidelines indicate that patients with [...] Interpretation and review of laboratory results Abnormal [facility] CNPNon 03-02-2024 CNPN Telephone (ENDOIN) KATHLEEN VILLA ([id number]) 1995 F [facility] Date Time Provider Department 03/02/24 KVNG LEWIS [...] Date Reviewed: 12/13/2023 Reviewed by: Jessica Guerrero APRN.PIE CRIMPING MACHINE OPERATOR - Fully Assessed Reason for Visit: Forms [...] (post-traumatic stress disorder) [F43.10] 12/25/2012 DVT prophylaxis [[id number]] 12/25/2012 09/04/2013 DISPOSITION AND FOLLOW-UP [V999.01] 12/25/2012 09/04/2013 HTN (hypertension) [I10] Hypertension in , antepartum [O16.9] 09/19/2013 01/08/2014 GBS (group B Streptococcus carrier), +RV cultur*11/11/2013 04/16/2014 [Z34.90] 11/22/2013 04/16/2014 Diabetes mellitus in (HCC) [O24.919] 12/25/2013 04/16/2014 Diabetic ketoacidosis without coma associated w*01/08/2014 02/04/2023 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] 01/08/2014 DVT prophylaxis [[id number]] 02/25/2014 04/16/2014 care and examination [Z39.2] 02/25/2014 [...] Encounter Status:Closed by ESTRELLITA MCCLENDON on 03/05/24 [facility] 02-14-2024 CNPN Telephone (ENDOIN) KATHLEEN VILLA ([id number]) 1995 [facility] Date Time Provider Department 02/14/24 KVNG LEWIS During your visit today, we recorded the following information about you: RamosJennifer 02/14/2024 1:51 PM Signed Patient stated that her 630G pump malfunctioned and she had to get a new one. Patient needs to now what settings to put the pump on. Patient can be reached at [phone] Estrellita Mcclendon RN 02/14/2024 4:43 PM Signed Spoke with [...] Date Reviewed: 12/13/2023 Reviewed by: Jessica Guerrero APRN.PIE CRIMPING MACHINE OPERATOR - Fully Assessed Reason for Visit: machine [...] (post-traumatic stress disorder) [F43.10] 12/25/2012 DVT prophylaxis [[id number]] 12/25/2012 09/04/2013 DISPOSITION AND FOLLOW-UP [V999.01] 12/25/2012 09/04/2013 HTN (hypertension) [I10] Hypertension in , antepartum [O16.9] 09/19/2013 01/08/2014 GBS (group B Streptococcus carrier), +RV cultur*11/11/2013 04/16/2014 [Z34.90] 11/22/2013 04/16/2014 Diabetes mellitus in ([facility]) [O24.919] 12/25/2013 04/16/2014 Diabetic ketoacidosis without coma associated w*01/08/2014 02/04/2023 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] 01/08/2014 DVT prophylaxis [[id number]] 02/25/2014 04/16/2014 care and examination [Z39.2] 02/25/2014 [...] [R10.8 (more content not included)... Normal [facility] CNPNon 02-13-2024 CNPN Telephone (ENDOMN) KATHLEEN VILLA ([id number]) 1995 F [facility] Date Time Provider Department [...] MD Clinical Fellow PGY-4 Endocrinology and Metabolism [facility] Allergies As of Date: 02/13/2024 Noted Allergy [...] Date Reviewed: 12/13/2023 Reviewed by: Jessica Guerrero APRN.PIE CRIMPING MACHINE OPERATOR - Fully Assessed Reason for Visit: Medication Problem [65] Returning Patient's Call [[phone]] Visit Diagnoses:Type 1 diabetes mellitus with hyperglycemia, with long-term current use of insulin (HCC) [E10.65] Insulin pump status [Z96.41] Order(s):insulin lispro [...] (post-traumatic stress disorder) [F43.10] 12/25/2012 DVT prophylaxis [[id number]] 12/25/2012 09/04/2013 DISPOSITION AND FOLLOW-UP [V999.01] 12/25/2012 09/04/2013 HTN (hypertension) [I10] Hypertension in , antepartum [O16.9] 09/19/2013 01/08/2014 GBS (group B Streptococcus carrier), +RV cultur*11/11/2013 04/16/2014 [Z34.90] 11/22/2013 04/16/2014 Diabetes mellitus in (HCC) [O24.919] 12/25/2013 04/16/2014 Diabetic ketoacidosis without coma associated w*01/08/2014 02/04/2023 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] 01/08/2014 DVT prophylaxis [[id number]] 02/25/2014 04/16/2014 care and examination [Z39.2] 02/25/2014 [...] Gastro (more content not included)... Normal [facility] CNOVon 12-13-2023 CNOV Office Visit (ENDOIN ) KATHLEEN VILLA ([id number]) 1995 F [facility] Date Time Provider Department 12/13/23 4:00 PM JESSICA GUERRERO During your visit today, we recorded the following information about you: Pulse Respiration Blood pressure Weight 80/minute 16/minute 139/87 77.1 kg Jessica Guerrero, AOC DIRECTOR INTELLIGENCE OFFICER.PIE CRIMPING MACHINE OPERATOR 12/13/2023 4:53 PM Signed ENDOCRINOLOGY AND METABOLISM [...] Other maternal great grandma I reviewed the Clutch Assembler's notes with this visit for vital signs, [...] 1 DM (more content not included)... Normal [facility] HEMOGLOBIN A1C (POC)on 12-12 HbA1c (Bld) [Mass fraction] 7.1 % Abnormal 4.3 - 5.6 % [facility] Absolute lymphocyte countOrd ered By: Lin Johansen on 10-25-2023 Lymphocytes Auto (Unsp spec) [#/Vol] 2.23 10*3/uL 0.83-4.51 [facility] Automated lymphocyte count a s percentage of total leukocytesOrdered By: Lin Johansen on 10-25-2023 Lymphocytes/100 WBC Auto (Unsp spec) 17.4 % 19-41 [facility] Basophil percentageOrdered B y: Lin Johansen on 10-25-2023 Basophils/100 WBC (Bld) 0.8 % 0-1 [facility] Chloride [Moles/Vol] 106 mmol/L 98-107 [facility] Eosinophils/100 WBC (Bld) 0.7 % 0-5 [facility] Glucose [Mass/Vol] 255 mg/dL 74-106 [facility] Comment on above: Glucose result great er than or equal to 200 mg/dLsuggests DIABETES MELLITUS per A.D.A. criteria. Hemoglobin (Bld) [Mass/Vol] 14.3 g/dL 12.0-15.0 [facility] Monocytes/100 WBC (Bld) 3.7 % 0-10 [facility] Neutrophils (Bld) [#/Vol] 9.8 10*3/uL 2.0-7.7 [facility] Neutrophils/100 WBC (Bld) 76.5 % 47-70 [facility] Potassium [Moles/Vol] 4.3 mmol/L 3.5-5.1 [facility] Sodium [Moles/Vol] 137 mmol/L 136-145 [facility] WBC (Bld) [#/Vol] 12.8 10*3/uL 4.4-11.0 [facility] Determination of erythrocyte mean corpuscular volume (MCV)Ordered By: Lin Johansen on 10-25-2023 MCV (RBC) [Entitic vol] 89.6 fL 81-99 [facility] Erythrocyte distribution wid th ratioOrdered By: Lin Johansen on 10-25-2023 Erythrocyte distribution width (RBC) [Ratio] 13.9 % 11.6-14.6 [facility] Erythrocyte distribution wid th standard deviationOrdered By: Lin Johansen on 10-25-2023 Erythrocyte distribution width (RBC) [Entitic vol] 46.0 fL 35.1-43.9 [facility] Hematocrit Auto (Bld) [Volum e fraction]Ordered By: Lin Johansen on 10-25-2023 Hematocrit (Bld) [Volume fraction] 44.7 % 37-47 [facility] Immature granulocytes/100 WB C Auto (Bld)Ordered By: Lin Johansen on 10-25-2023 Immature granulocytes/100 WBC (Bld) 0.900 % 0.0-0.9 [facility] Comment on above: IG% - Immature Granu locytes (promyelocytes, myelocytes and metamyelocytes) > 1% indicates that a LEFT SHIFT is Present. Laboratory - Chemistry and C hemistry - challengeOrdered By: Lin Johansen on 10-25-2023 CO2 [Moles/Vol] 23.0 mmol/L 21.0-32.0 [facility] Urea nitrogen/Creatinine [Mass ratio] 21.5 mg/mg 10-20 [facility] Laboratory - Drug toxicology Ordered By: Lin Johansen on 10-25-2023 Amphetamines Ql (U) Negative <1000 ng/mL [facility] Benzodiazepines Ql (U) Negative < 200 ng/mL [facility] Cannabinoids Screen Ql (U) Positive < 50 ng/mL [facility] Cocaine Ql (U) Negative < 300 ng/mL [facility] Opiates Ql (U) Negative < 300 ng/mL [facility] Laboratory - Hematology and Cell countsOrdered By: Lin Johansen on 10-25-2023 MCH (RBC) [Entitic mass] 28.7 pg 27.0-32.0 [facility] MCHC (RBC) [Mass/Vol] 32.0 g/dL 32-36 [facility] Nucleated RBC/100 WBC (Bld) [Ratio] 0 % 0-5 [facility] Platelet mean volume (Bld) [Entitic vol] 11.9 fL 6.2-12.0 [facility] Platelets (Bld) [#/Vol] 171 10*3/uL 150-450 [facility] No Panel InformationOrdered By: Lin Johansen on 10-25-2023 Estimated Creatinine Clearance Calc 109.81 ml/min [facility] Estimated GFR (MDRD) Amer 110 mL/min >60 [facility] Comment on above: GFR Calc Estimated GFR (MDRD) Non-Af Amer 91 mL/min >60 [facility] Comment on above: Non- GFR Calc Ethyl Alcohol Level < 3.0 mg/dL [facility] Comment on above: The serum:whole bloo d ethanol ratio is approximately 1.14and varies slightly with hematocrit. Medical Alcohol reference interval and critical value innon-tolerant individuals; 50 - 100 Impairment 100 Intoxication 100 - 250 Severe Poisoning 250 - 400 Deep/possible fatal coma MDMA (Ecstasy) Screen Negative < 500 ng/mL [facility] Urine Barbiturates Screen Negative < 200 ng/mL [facility] Urine Drug Screen Comment [facility] Comment on above: CONFIRMATORY TESTING FOR ALL [...] Urine Methadone Screen Negative < 300 ng/mL [facility] RBC Auto (Bld) [#/Vol]Ordere d By: Lin Johansen on 10-25-2023 RBC (Bld) [#/Vol] 4.99 10*6/uL 4.2-5.4 [facility] Serum or plasma calcium milli urement (mass/volume)Ordered By: Lin Johansen on 10-25-2023 Calcium [Mass/Vol] 9.0 mg/dL 8.5-10.1 [facility] Serum or plasma choriogonado tropin detectionOrdered By: Lin Johansen on 10-25-2023 HCG ( test) Ql Negative [facility] Serum or plasma creatinine m easurement (mass/volume)Ordered By: Lin Johansen on 10-25-2023 Creatinine [Mass/Vol] 0.79 mg/dL 0.55-1.02 [facility] Comment on above: The validity of the calculated GFR & GFRAA in patients over 70 years has not been determined. Clinical correlation is essential. Serum or plasma urea nitroge n measurement (mass/volume)Ordered By: Lin Johansen on 10-25-2023 Urea nitrogen [Mass/Vol] 17 mg/dL 7-18 [facility] Thin prep Papanicolaou smear with manual screeningOrdered By: Lin Johansen on 10-25-2023 Thin prep Papanicolaou smear with manual screening 60 mg/dL 74-106 [facility] Comment on above: MANAGEMENT OF PATIEN T CARE PER NURSING PROTOCOL Thin prep Papanicolaou smear with manual screening 8 5-15 [facility] Urine phencyclidine (PCP) de tectionOrdered By: Lin Johansen on 10-25-2023 Phencyclidine Ql (U) Negative < 25 ng/mL [facility] Absolute lymphocyte countOrd ered By: Vita Jefferson on 10-18-2023 Lymphocytes Auto (Unsp spec) [#/Vol] 2.87 10*3/uL 0.83-4.51 [facility] Automated lymphocyte count a s percentage of total leukocytesOrdered By: Vita Jefferson on 10-18-2023 Lymphocytes/100 WBC Auto (Unsp spec) 32.5 % 19-41 [facility] Basophil percentageOrdered B y: Vita Jefferson on 10-18-2023 Basophils/100 WBC (Bld) 0.3 % 0-1 [facility] Chloride [Moles/Vol] 110 mmol/L 98-107 [facility] Eosinophils/100 WBC (Bld) 1.0 % 0-5 [facility] Glucose [Mass/Vol] 227 mg/dL 74-106 [facility] Comment on above: Glucose result great er than or equal to 200 mg/dLsuggests DIABETES MELLITUS per A.D.A. criteria. Hemoglobin (Bld) [Mass/Vol] 12.0 g/dL 12.0-15.0 [facility] Monocytes/100 WBC (Bld) 6.0 % 0-10 [facility] Neutrophils (Bld) [#/Vol] 5.3 10*3/uL 2.0-7.7 [facility] Neutrophils/100 WBC (Bld) 59.5 % 47-70 [facility] Potassium [Moles/Vol] 4.1 mmol/L 3.5-5.1 [facility] Sodium [Moles/Vol] 138 mmol/L 136-145 [facility] WBC (Bld) [#/Vol] 8.8 10*3/uL 4.4-11.0 [facility] Determination of erythrocyte mean corpuscular volume (MCV)Ordered By: Vita Jefferson on 10-18-2023 MCV (RBC) [Entitic vol] 89.4 fL 81-99 [facility] Erythrocyte distribution wid th ratioOrdered By: Vita Jefferson on 10-18-2023 Erythrocyte distribution width (RBC) [Ratio] 13.2 % 11.6-14.6 [facility] Erythrocyte distribution wid th standard deviationOrdered By: Vita Jefferson on 10-18-2023 Erythrocyte distribution width (RBC) [Entitic vol] 43.0 fL 35.1-43.9 [facility] Hematocrit Auto (Bld) [Volum e fraction]Ordered By: Vita Jefferson on 10-18-2023 Hematocrit (Bld) [Volume fraction] 36.4 % 37-47 [facility] Immature granulocytes/100 WB C Auto (Bld)Ordered By: Vita Jefferson on 10-18-2023 Immature granulocytes/100 WBC (Bld) 0.700 % 0.0-0.9 [facility] Comment on above: IG% - Immature Granu locytes (promyelocytes, myelocytes and metamyelocytes) > 1% indicates that a LEFT SHIFT is Present. Laboratory - Chemistry and C hemistry - challengeOrdered By: Vita Jefferson on 10-18-2023 CO2 [Moles/Vol] 25.0 mmol/L 21.0-32.0 [facility] Urea nitrogen/Creatinine [Mass ratio] 24.0 mg/mg 10-20 [facility] Laboratory - Hematology and Cell countsOrdered By: Vita Jefferson on 10-18-2023 MCH (RBC) [Entitic mass] 29.5 pg 27.0-32.0 [facility] MCHC (RBC) [Mass/Vol] 33.0 g/dL 32-36 [facility] Nucleated RBC/100 WBC (Bld) [Ratio] 0 % 0-5 [facility] Platelet mean volume (Bld) [Entitic vol] 12.1 fL 6.2-12.0 [facility] Platelets (Bld) [#/Vol] 111 10*3/uL 150-450 [facility] No Panel InformationOrdered By: Vita Jefferson on 10-18-2023 Estimated Creatinine Clearance Calc 129.48 ml/min [facility] Estimated GFR (MDRD) Amer 135 mL/min >60 [facility] Comment on above: GFR Calc Estimated GFR (MDRD) Non-Af Amer 111 mL/min >60 [facility] Comment on above: Non- GFR Calc RBC Auto (Bld) [#/Vol]Ordere d By: Vita Jefferson on 10-18-2023 RBC (Bld) [#/Vol] 4.07 10*6/uL 4.2-5.4 [facility] Serum or plasma calcium milli urement (mass/volume)Ordered By: Vita Jefferson on 10-18-2023 Calcium [Mass/Vol] 7.6 mg/dL 8.5-10.1 [facility] Serum or plasma creatinine m easurement (mass/volume)Ordered By: Vita Jefferson on 10-18-2023 Creatinine [Mass/Vol] 0.67 mg/dL 0.55-1.02 [facility] Comment on above: The validity of the calculated GFR & GFRAA in patients over 70 years has not been determined. Clinical correlation is essential. Serum or plasma urea nitroge n measurement (mass/volume)Ordered By: Vita Jefferson on 10-18-2023 Urea nitrogen [Mass/Vol] 16 mg/dL 7-18 [facility] Thin prep Papanicolaou smear with manual screeningOrdered By: Vita Jefferson on 10-18-2023 Thin prep Papanicolaou smear with manual screening 3 5-15 [facility] Absolute lymphocyte countOrd ered By: Alexandro Garces on 10-17-2023 Lymphocytes Auto (Unsp spec) [#/Vol] 1.06 10*3/uL 0.83-4.51 [facility] Automated lymphocyte count a s percentage of total leukocytesOrdered By: Alexandro Garces on 10-17-2023 Lymphocytes/100 WBC Auto (Unsp spec) 7.8 % 19-41 [facility] Basophil percentageOrdered B y: Alexandro Garces on 10-17-2023 Basophils/100 WBC (Bld) 0.4 % 0-1 [facility] Chloride [Moles/Vol] 98 mmol/L 98-107 [facility] Eosinophils/100 WBC (Bld) 0.1 % 0-5 [facility] Glucose [Mass/Vol] 534 mg/dL 74-106 [facility] Comment on above: Critical Result(s) C alled at: 10:55:26 10/17/2023 by: Nan Bray. Results read back by same.Glucose result greater than or equal to 200 mg/dLsuggests DIABETES MELLITUS per A.D.A. criteria. Hemoglobin (Bld) [Mass/Vol] 13.6 g/dL 12.0-15.0 [facility] Monocytes/100 WBC (Bld) 2.4 % 0-10 [facility] Neutrophils (Bld) [#/Vol] 12.0 10*3/uL 2.0-7.7 [facility] Neutrophils/100 WBC (Bld) 88.4 % 47-70 [facility] Potassium [Moles/Vol] 4.8 mmol/L 3.5-5.1 [facility] Sodium [Moles/Vol] 132 mmol/L 136-145 [facility] WBC (Bld) [#/Vol] 13.6 10*3/uL 4.4-11.0 [facility] Determination of erythrocyte mean corpuscular volume (MCV)Ordered By: Alexandro Garces on 10-17-2023 MCV (RBC) [Entitic vol] 90.2 fL 81-99 [facility] Erythrocyte distribution wid th ratioOrdered By: Alexandro aGrces on 10-17-2023 Erythrocyte distribution width (RBC) [Ratio] 13.1 % 11.6-14.6 [facility] Erythrocyte distribution wid th standard deviationOrdered By: Alexandro Garces on 10-17-2023 Erythrocyte distribution width (RBC) [Entitic vol] 43.1 fL 35.1-43.9 [facility] Hematocrit Auto (Bld) [Volum e fraction]Ordered By: Alexandro Garces on 10-17-2023 Hematocrit (Bld) [Volume fraction] 42.5 % 37-47 [facility] Immature granulocytes/100 WB C Auto (Bld)Ordered By: Alexandro Garces on 10-17-2023 Immature granulocytes/100 WBC (Bld) 0.900 % 0.0-0.9 [facility] Comment on above: IG% - Immature Granu locytes (promyelocytes, myelocytes and metamyelocytes) > 1% indicates that a LEFT SHIFT is Present. Laboratory - Chemistry and C hemistry - challengeOrdered By: Alexandro Garces on 10-17-2023 CO2 [Moles/Vol] 16.0 mmol/L 21.0-32.0 [facility] Urea nitrogen/Creatinine [Mass ratio] 18.6 mg/mg -20 [facility] Laboratory - Hematology and Cell countsOrdered By: Alexandro Garces on 10-17-2023 MCH (RBC) [Entitic mass] 28.9 pg 27.0-32.0 [facility] MCHC (RBC) [Mass/Vol] 32.0 g/dL 32-36 [facility] Nucleated RBC/100 WBC (Bld) [Ratio] 0 % 0-5 [facility] Platelet mean volume (Bld) [Entitic vol] 12.2 fL 6.2-12.0 [facility] Platelets (Bld) [#/Vol] 138 10*3/uL 150-450 [facility] No Panel InformationOrdered By: Alexandro Garces on 10-17-2023 Estimated Creatinine Clearance Calc 73.52 ml/min [facility] Estimated GFR (MDRD) Amer 70 mL/min >60 [facility] Comment on above: GFR Calc Estimated GFR (MDRD) Non-Af Amer 58 mL/min >60 [facility] Comment on above: Non- GFR Calc RBC Auto (Bld) [#/Vol]Ordere d By: Alexandro Garces on 10-17-2023 RBC (Bld) [#/Vol] 4.71 10*6/uL 4.2-5.4 [facility] Serum or plasma acetone milli urement (mass/volume)Ordered By: Alexandro Garces on 10-17-2023 Acetone [Mass/Vol] MODERATE NEG [facility] Serum or plasma calcium milli urement (mass/volume)Ordered By: Alexandro Garces on 10-17-2023 Calcium [Mass/Vol] 9.1 mg/dL 8.5-10.1 [facility] Serum or plasma creatinine m easurement (mass/volume)Ordered By: Alexandro Garces on 10-17-2023 Creatinine [Mass/Vol] 1.18 mg/dL 0.55-1.02 [facility] Comment on above: The validity of the calculated GFR & GFRAA in patients over 70 years has not been determined. Clinical correlation is essential. Serum or plasma urea nitroge n measurement (mass/volume)Ordered By: Alexandro Garces on 10-17-2023 Urea nitrogen [Mass/Vol] 22 mg/dL 7-18 [facility] Thin prep Papanicolaou smear with manual screeningOrdered By: Vita Jefferson on 10-17-2023 Thin prep Papanicolaou smear with manual screening 293 mg/dL 74-106 [facility] Comment on above: MANAGEMENT OF PATIEN T CARE PER NURSING PROTOCOL Thin prep Papanicolaou smear with manual screeningOrdered By: Alexandro Garces on 10-17-2023 Thin prep Papanicolaou smear with manual screening 18 5-15 [facility] Absolute lymphocyte countOrd ered By: Olvin Ibarra on 09-25-2023 Lymphocytes Auto (Unsp spec) [#/Vol] 0.95 10*3/uL 0.83-4.51 [facility] Automated lymphocyte count a s percentage of total leukocytesOrdered By: Olvin Ibarra on 09-25-2023 Lymphocytes/100 WBC Auto (Unsp spec) 15.8 % 19-41 [facility] Basophil percentageOrdered B y: Olvin Ibarra on 09-25-2023 Basophils/100 WBC (Bld) 0.3 % 0-1 [facility] Chloride [Moles/Vol] 106 mmol/L 98-107 [facility] Eosinophils/100 WBC (Bld) 0.2 % 0-5 [facility] Glucose [Mass/Vol] 331 mg/dL 74-106 [facility] Comment on above: Glucose result great er than or equal to 200 mg/dLsuggests DIABETES MELLITUS per A.D.A. criteria. Hemoglobin (Bld) [Mass/Vol] 13.2 g/dL 12.0-15.0 [facility] Monocytes/100 WBC (Bld) 12.0 % 0-10 [facility] Neutrophils (Bld) [#/Vol] 4.2 10*3/uL 2.0-7.7 [facility] Neutrophils/100 WBC (Bld) 70.4 % 47-70 [facility] Potassium [Moles/Vol] 3.7 mmol/L 3.5-5.1 [facility] Sodium [Moles/Vol] 135 mmol/L 136-145 [facility] WBC (Bld) [#/Vol] 6.0 10*3/uL 4.4-11.0 [facility] Blood platelet adequacy dete ction by light microscopyOrdered By: Olvin Ibarra on 09-25-2023 Platelets LM Ql (Bld) MOD DEC ADEQ [facility] Determination of erythrocyte mean corpuscular volume (MCV)Ordered By: Olvin Ibarra on 09-25-2023 MCV (RBC) [Entitic vol] 90.2 fL 81-99 [facility] Erythrocyte distribution wid th ratioOrdered By: Olvin Ibarra on 09-25-2023 Erythrocyte distribution width (RBC) [Ratio] 13.8 % 11.6-14.6 [facility] Erythrocyte distribution wid th standard deviationOrdered By: Olvin Ibarra on 09-25-2023 Erythrocyte distribution width (RBC) [Entitic vol] 45.7 fL 35.1-43.9 [facility] Hematocrit Auto (Bld) [Volum e fraction]Ordered By: Olvin Ibarar on 09-25-2023 Hematocrit (Bld) [Volume fraction] 41.6 % 37-47 [facility] Immature granulocytes/100 WB C Auto (Bld)Ordered By: Olvin Ibarra on 09-25-2023 Immature granulocytes/100 WBC (Bld) 1.300 % 0.0-0.9 [facility] Comment on above: IG% - Immature Granu locytes (promyelocytes, myelocytes and metamyelocytes) > 1% indicates that a LEFT SHIFT is Present. Laboratory - Chemistry and C hemistry - challengeOrdered By: Olvin Ibarra on 09-25-2023 CO2 [Moles/Vol] 18.0 mmol/L 21.0-32.0 [facility] Urea nitrogen/Creatinine [Mass ratio] 15.6 mg/mg 10-20 [facility] Laboratory - Hematology and Cell countsOrdered By: Olvin Ibarra on 09-25-2023 MCH (RBC) [Entitic mass] 28.6 pg 27.0-32.0 [facility] MCHC (RBC) [Mass/Vol] 31.7 g/dL 32-36 [facility] Nucleated RBC/100 WBC (Bld) [Ratio] 0 % 0-5 [facility] Platelets (Bld) [#/Vol] 76 10*3/uL 150-450 [facility] No Panel InformationOrdered By: Olvin Ibarra on 09-25-2023 Estimated Creatinine Clearance Calc 96.39 ml/min [facility] Estimated GFR (MDRD) Amer 96 mL/min >60 [facility] Comment on above: GFR Calc Estimated GFR (MDRD) Non-Af Amer 79 mL/min >60 [facility] Comment on above: Non- GFR Calc Platelet mean volume Dong-Ec ker (Bld) [Entitic vol]Ordered By: Olvin Ibarra on 09-25-2023 Platelet mean volume (Bld) [Entitic vol] 12.8 fL 6.2-12.0 [facility] RBC Auto (Bld) [#/Vol]Ordere d By: Olvin Ibarra on 09-25-2023 RBC (Bld) [#/Vol] 4.61 10*6/uL 4.2-5.4 [facility] Serum or plasma calcium milli urement (mass/volume)Ordered By: Olvin Ibarra on 09-25-2023 Calcium [Mass/Vol] 8.4 mg/dL 8.5-10.1 [facility] Serum or plasma creatinine m easurement (mass/volume)Ordered By: Olvin Ibarra on 09-25-2023 Creatinine [Mass/Vol] 0.90 mg/dL 0.55-1.02 [facility] Comment on above: The validity of the calculated GFR & GFRAA in patients over 70 years has not been determined. Clinical correlation is essential. Serum or plasma urea nitroge n measurement (mass/volume)Ordered By: Olvin Ibarra on 09-25-2023 Urea nitrogen [Mass/Vol] 14 mg/dL 7-18 [facility] Thin prep Papanicolaou smear with manual screeningOrdered By: Olvin Stacey on 09-25-2023 Thin prep Papanicolaou smear with manual screening 11 5-15 [facility] Laboratory - Microbiology an d Antimicrobial susceptibilityOrdered By: Siddharth Michelle on 09-24-2023 SARS-CoV-2 (COVID-19) RNA DANIEL+probe Ql (Unsp spec) Influenzae B [facility] Absolute lymphocyte countOrd ered By: Rm Chirinos on 09-20-2023 Lymphocytes Auto (Unsp spec) [#/Vol] 0.75 10*3/uL 0.83-4.51 [facility] Automated lymphocyte count a s percentage of total leukocytesOrdered By: Rm Chirinos on 09-20-2023 Lymphocytes/100 WBC Auto (Unsp spec) 4.6 % 19-41 [facility] Base excessOrdered By: Rm siddiqi on 09-20-2023 Base excess Calc (BldV) [Moles/Vol] -5 mmol/L -1.0-3.5 [facility] Basophil percentageOrdered B y: Rm Chirinos on 09-20-2023 Basophil percentage 0 SEEN /hpf 0-5 [facility] Basophils/100 WBC (Bld) 0.4 % 0-1 [facility] Chloride [Moles/Vol] 102 mmol/L 98-107 [facility] Eosinophils/100 WBC (Bld) 0.0 % 0-5 [facility] Glucose [Mass/Vol] 534 mg/dL 74-106 [facility] Comment on above: Critical Result(s) C alled at: 12:17:31 09/20/2023 by: Reid Rogers. Colin Lo RN (ER). Results read back by same.Glucose result greater than or equal to 200 mg/dLsuggests DIABETES MELLITUS per A.D.A. criteria. Hemoglobin (Bld) [Mass/Vol] 13.4 g/dL 12.0-15.0 [facility] Monocytes/100 WBC (Bld) 2.8 % 0-10 [facility] Neutrophils (Bld) [#/Vol] 14.7 10*3/uL 2.0-7.7 [facility] Neutrophils/100 WBC (Bld) 91.2 % 47-70 [facility] Potassium [Moles/Vol] 4.9 mmol/L 3.5-5.1 [facility] Sodium [Moles/Vol] 132 mmol/L 136-145 [facility] WBC (Bld) [#/Vol] 16.2 10*3/uL 4.4-11.0 [facility] Bilirubin Test strip Ql (U)O rdered By: Rm Chirinos on 09-20-2023 Bilirubin Ql (U) Negative Negative [facility] CO2 (BldV) [Moles/Vol]Ordere d By: Rm Chirinos on 09-20-2023 CO2 [Moles/Vol] 22 mmol/L 23-33 [facility] Determination of erythrocyte mean corpuscular volume (MCV)Ordered By: Rm Chirinos on 09-20-2023 MCV (RBC) [Entitic vol] 90.3 fL 81-99 [facility] Erythrocyte distribution wid th ratioOrdered By: Rm Chirinos on 09-20-2023 Erythrocyte distribution width (RBC) [Ratio] 13.5 % 11.6-14.6 [facility] Erythrocyte distribution wid th standard deviationOrdered By: Rmje Chirinos on 09-20-2023 Erythrocyte distribution width (RBC) [Entitic vol] 44.9 fL 35.1-43.9 [facility] Hematocrit Auto (Bld) [Volum e fraction]Ordered By: Rm Chirinos on 09-20-2023 Hematocrit (Bld) [Volume fraction] 41.8 % 37-47 [facility] Immature granulocytes/100 WB C Auto (Bld)Ordered By: Rm Chirinos on 09-20-2023 Immature granulocytes/100 WBC (Bld) 1.000 % 0.0-0.9 [facility] Comment on above: IG% - Immature Granu locytes (promyelocytes, myelocytes and metamyelocytes) > 1% indicates that a LEFT SHIFT is Present. Ketones Test strip Ql (U)Ord ered By: Rm Chirinos on 09-20-2023 Ketones Ql (U) 150 mg/dl Negative [facility] Comment on above: CRITICAL VALUE *HCRI TICAL VALUE VERIFIED. CALLED TO WILFREDO SALEEM (ER)09/20/23 1215 [address].RESULTS READ BACK BY SAME. Laboratory - Chemistry and C hemistry - challengeOrdered By: Rm Chirinos on 09-20-2023 CO2 [Moles/Vol] 21.0 mmol/L 21.0-32.0 [facility] Urea nitrogen/Creatinine [Mass ratio] 19.1 mg/mg 10-20 [facility] Laboratory - Hematology and Cell countsOrdered By: Rm Chirinos on 09-20-2023 MCH (RBC) [Entitic mass] 28.9 pg 27.0-32.0 [facility] MCHC (RBC) [Mass/Vol] 32.1 g/dL 32-36 [facility] Nucleated RBC/100 WBC (Bld) [Ratio] 0 % 0-5 [facility] Platelets (Bld) [#/Vol] 111 10*3/uL 150-450 [facility] Mucus LM Ql (Urine sed)Order ed By: Rm Chirinos on 09-20-2023 Mucus Ql (Urine sed) 0 SEEN /hpf [facility] Nitrite Test strip Ql (U)Ord ered By: Rm Chirinos on 09-20-2023 Nitrite Ql (U) Negative Negative [facility] No Panel InformationOrdered By: Rm Chirinos on 09-20-2023 Blood Gas Sample Site Not entered [facility] Blood Gas Specimen Type ISABELLE [facility] Oxygen Delivery Device Room Air [facility] Urine RBC 0 SEEN /hpf 0-5 [facility] Estimated Creatinine Clearance Calc 93.93 ml/min [facility] Estimated GFR (MDRD) Amer 85 mL/min >60 [facility] Comment on above: GFR Calc Estimated GFR (MDRD) Non-Af Amer 70 mL/min >60 [facility] Comment on above: Non- GFR Calc PCO2 venousOrdered By: Rm siddiqi on 09-20-2023 CO2 (BldV) [Partial pressure] 37.3 mm[Hg] 41-51 [facility] PO2 venousOrdered By: Rm sahni on 09-20-2023 Oxygen (BldV) [Partial pressure] 64 mm[Hg] 25-40 [facility] Platelet mean volume Dong-Ec ker (Bld) [Entitic vol]Ordered By: Rm Chirinos on 09-20-2023 Platelet mean volume (Bld) [Entitic vol] 13.3 fL 6.2-12.0 [facility] Protein Test strip Ql (U)Ord ered By: Rm Chirinos on 09-20-2023 Protein Ql (U) 15 mg/dl Negative [facility] RBC Auto (Bld) [#/Vol]Ordere d By: Rm Chirinos on 09-20-2023 RBC (Bld) [#/Vol] 4.63 10*6/uL 4.2-5.4 [facility] Serum or plasma calcium milli urement (mass/volume)Ordered By: Rm Chirinos on 09-20-2023 Calcium [Mass/Vol] 8.8 mg/dL 8.5-10.1 [facility] Serum or plasma creatinine m easurement (mass/volume)Ordered By: Rm Chirinos on 09-20-2023 Creatinine [Mass/Vol] 1.00 mg/dL 0.55-1.02 [facility] Comment on above: The validity of the calculated GFR & GFRAA in patients over 70 years has not been determined. Clinical correlation is essential. Serum or plasma urea nitroge n measurement (mass/volume)Ordered By: Rm Chirinos on 09-20-2023 Urea nitrogen [Mass/Vol] 19 mg/dL 7-18 [facility] Squamous epithelial cells de tection in urine sediment by light microscopyOrdered By: Rm Chirinos on 09-20-2023 Epithelial cells.squamous LM Ql (Urine sed) 0-5 SEEN /hpf 5-10 [facility] Thin prep Papanicolaou smear with manual screeningOrdered By: Rm Chirinos on 09-20-2023 Thin prep Papanicolaou smear with manual screening 264 mg/dL 74-106 [facility] Comment on above: MANAGEMENT OF PATIEN T CARE PER NURSING PROTOCOL Thin prep Papanicolaou smear with manual screening 9 5-15 [facility] Urine blood detectionOrdered By: Rm Chirinos on 09-20-2023 RBC Ql (U) Negative Negative [facility] Urine clarityOrdered By: Rm Chirinos on 09-20-2023 Clarity (U) Sl. Cloudy Clear [facility] Urine color determinationOrd ered By: Rm Chirinos on 09-20-2023 Color (U) Yellow Yellow [facility] Urine glucose detectionOrder ed By: Rm Chirinos on 09-20-2023 Glucose Ql (U) 1000 mg/dl Normal [facility] Urine leukocyte esterase det ection by dipstickOrdered By: Rm Chirinos on 09-20-2023 Leukocyte esterase Test strip Ql (U) Negative Negative [facility] Urine pHOrdered By: Rm pagan on 09-20-2023 pH (U) 6.0 [pH] 5.0 - 8.0 [facility] Urine sediment bacteria coun t by microscopy (number/high power field)Ordered By: Rm Chirinos on 09-20-2023 Bacteria LM.HPF (Urine sed) [#/Area] 0 /[HPF] None Seen [facility] Urine specific gravity measu rementOrdered By: Rm Chirinos on 09-20-2023 Specific gravity (U) [Rel density] 1.010 1.002-1.030 [facility] Urine urobilinogen measureme ntOrdered By: Rm Chirinos on 09-20-2023 Urobilinogen Ql (U) Normal mg/dl Normal [facility] Venous blood bicarbonate penelope surementOrdered By: Rm Chirinos on 09-20-2023 HCO3 (BldCoV) [Moles/Vol] 21 mmol/L 22-26 [facility] Venous blood oxygen saturati on (pure mass fraction)Ordered By: Rm Chirinos on 09-20-2023 SaO2% (BldV) [Pure mass fraction] 91 % 50-70 [facility] Venous blood pH measurementO rdered By: Rm Chirinos on 09-20-2023 pH (BldV) 7.35 [pH] 7.32-7.42 [facility] Absolute lymphocyte countOrd ered By: Greg Philip on 09-06-2023 Lymphocytes Auto (Unsp spec) [#/Vol] 2.47 10*3/uL 0.83-4.51 [facility] Basophil percentageOrdered B y: Greg Philip on 09-06-2023 Basophil percentage 0-5 SEEN /hpf 0-5 [facility] Basophils/100 WBC (Bld) 0.4 % 0-1 [facility] Bilirubin [Mass/Vol] 0.50 mg/dL 0.20-1.00 [facility] Comment on above: For patients on eltr ombopag therapy, use of Dimension [place] TBIL is not recommended. Chloride [Moles/Vol] 111 mmol/L 98-107 [facility] Eosinophils/100 WBC (Bld) 0.7 % 0-5 [facility] Glucose [Mass/Vol] 101 mg/dL 74-106 [facility] Comment on above: Fasting Glucose resu lt from 100 to 125 mg/dL suggests IMPAIRED HOMEOSTASIS per A.D.A. criteria. Neutrophils (Bld) [#/Vol] 6.5 10*3/uL 2.0-7.7 [facility] Neutrophils/100 WBC (Bld) 67.1 % 47-70 [facility] Potassium [Moles/Vol] 3.9 mmol/L 3.5-5.1 [facility] Protein [Mass/Vol] 6.8 g/dL 6.4-8.2 [facility] Sodium [Moles/Vol] 142 mmol/L 136-145 [facility] WBC (Bld) [#/Vol] 9.6 10*3/uL 4.4-11.0 [facility] Beta hCG serum qualOrdered B y: Greg Philip on 09-06-2023 Beta HCG ( test) Ql Negative [facility] Bilirubin Test strip Ql (U)O rdered By: Greg Philip on 09-06-2023 Bilirubin Ql (U) Negative Negative [facility] Blood erythrocytes count (nu mber/volume)Ordered By: Greg Philip on 09-06-2023 RBC (Bld) [#/Vol] 4.34 10*6/uL 4.2-5.4 [facility] Blood hemoglobin measurement (mass/volume)Ordered By: Greg Philip on 09-06-2023 Hemoglobin (Bld) [Mass/Vol] 12.7 g/dL 12.0-15.0 [facility] Blood lymphocytes/100 leukoc ytesOrdered By: Greg Philip on 09-06-2023 Lymphocytes/100 WBC (Bld) 25.6 % 19-41 [facility] Blood monocytes/100 leukocyt esOrdered By: Greg Philip on 09-06-2023 Monocytes/100 WBC (Bld) 5.7 % 0-10 [facility] Blood platelet mean volumeOr dered By: Greg Philip on 09-06-2023 Platelet mean volume (Bld) [Entitic vol] 12.4 fL 6.2-12.0 [facility] Determination of erythrocyte mean corpuscular volume (MCV)Ordered By: Greg Philip on 09-06-2023 MCV (RBC) [Entitic vol] 91.0 fL 81-99 [facility] Hematocrit Auto (Bld) [Volum e fraction]Ordered By: Greg Philip on 09-06-2023 Hematocrit (Bld) [Volume fraction] 39.5 % 37-47 [facility] Ketones Test strip Ql (U)Ord ered By: Greg Philip on 09-06-2023 Ketones Ql (U) 5 mg/dl Negative [facility] Laboratory - Chemistry and C hemistry - challengeOrdered By: Greg Philip on 09-06-2023 ALP [Catalytic activity/Vol] 69 U/L 45-117 [facility] ALT [Catalytic activity/Vol] 47 U/L 13-56 [facility] CO2 [Moles/Vol] 27.0 mmol/L 21.0-32.0 [facility] Globulin (S) [Mass/Vol] 3.2 g/dL 2.2-4.2 [facility] Urea nitrogen/Creatinine [Mass ratio] 22.9 mg/mg 10-20 [facility] Laboratory - Hematology and Cell countsOrdered By: Greg Philip on 09-06-2023 Erythrocyte distribution width (RBC) [Entitic vol] 45.5 fL 35.1-43.9 [facility] Erythrocyte distribution width (RBC) [Ratio] 13.6 % 11.6-14.6 [facility] Immature granulocytes/100 WBC (Bld) 0.500 % 0.0-0.9 [facility] Comment on above: IG% - Immature Granu locytes (promyelocytes, myelocytes and metamyelocytes) > 1% indicates that a LEFT SHIFT is Present. MCH (RBC) [Entitic mass] 29.3 pg 27.0-32.0 [facility] Nucleated RBC/100 WBC (Bld) [Ratio] 0 % 0-5 [facility] MCHC Auto (RBC) [Mass/Vol]Or dered By: Greg Philip on 09-06-2023 MCHC (RBC) [Mass/Vol] 32.2 g/dL 32-36 [facility] Mucus LM Ql (Urine sed)Order ed By: Greg Philip on 09-06-2023 Mucus Ql (Urine sed) 1+ /hpf [facility] Nitrite Test strip Ql (U)Ord ered By: Greg Philip on 09-06-2023 Nitrite Ql (U) Negative Negative [facility] No Panel InformationOrdered By: Greg Philip on 09-06-2023 Estimated Creatinine Clearance Calc 131.44 ml/min [facility] Estimated GFR (MDRD) Amer 137 mL/min >60 [facility] Comment on above: GFR Calc Estimated GFR (MDRD) Non-Af Amer 113 mL/min >60 [facility] Comment on above: Non- GFR Calc Platelets bldOrdered By: Allyn Philip on 09-06-2023 Platelets (Bld) [#/Vol] 144 10*3/uL 150-450 [facility] Protein Test strip Ql (U)Ord ered By: Greg Philip on 09-06-2023 Protein Ql (U) 15 mg/dl Negative [facility] Serum or plasma albumin milli urement (mass/volume)Ordered By: Greg Philip on 09-06-2023 Albumin [Mass/Vol] 3.6 g/dL 3.2-5.0 [facility] Serum or plasma albumin/glob ulin mass ratioOrdered By: Greg Philip on 09-06-2023 Albumin/Globulin [Mass ratio] 1.1 {ratio} 0.9-2.4 [facility] Serum or plasma calcium milli urement (mass/volume)Ordered By: Greg Philip on 09-06-2023 Calcium [Mass/Vol] 8.5 mg/dL 8.5-10.1 [facility] Serum or plasma creatinine m easurement (mass/volume)Ordered By: Greg Philip on 09-06-2023 Creatinine [Mass/Vol] 0.66 mg/dL 0.55-1.02 [facility] Comment on above: The validity of the calculated GFR & GFRAA in patients over 70 years has not been determined. Clinical correlation is essential. Serum or plasma urea nitroge n measurement (mass/volume)Ordered By: Greg Philip on 09-06-2023 Urea nitrogen [Mass/Vol] 15 mg/dL 7-18 [facility] Squamous epithelial cells de tection in urine sediment by light microscopyOrdered By: Greg Philip on 09-06-2023 Epithelial cells.squamous LM Ql (Urine sed) 5-10 SEEN /hpf 5-10 [facility] Thin prep Papanicolaou smear with manual screeningOrdered By: Greg Philip on 09-06-2023 Thin prep Papanicolaou smear with manual screening 28 U/L 15-37 [facility] Thin prep Papanicolaou smear with manual screening 4 5-15 [facility] Urine blood detectionOrdered By: Greg Philip on 09-06-2023 RBC Ql (U) Negative Negative [facility] RBC Ql (U) 0 SEEN /hpf 0-5 [facility] Urine clarityOrdered By: Allyn Philip on 09-06-2023 Clarity (U) Clear Clear [facility] Urine color determinationOrd ered By: Greg Philip on 09-06-2023 Color (U) Yellow Yellow [facility] Urine glucose detectionOrder ed By: Greg Philip on 09-06-2023 Glucose Ql (U) 50 mg/dl Normal [facility] Urine leukocyte esterase det ection by dipstickOrdered By: Greg Philip on 09-06-2023 Leukocyte esterase Test strip Ql (U) Negative Negative [facility] Urine pHOrdered By: Greg sun on 09-06-2023 pH (U) 6.5 [pH] 5.0 - 8.0 [facility] Urine sediment bacteria coun t by microscopy (number/high power field)Ordered By: Greg Philip on 09-06-2023 Bacteria LM.HPF (Urine sed) [#/Area] 0 /[HPF] None Seen [facility] Urine specific gravity measu rementOrdered By: Greg Philip on 09-06-2023 Specific gravity (U) [Rel density] 1.020 1.002-1.030 [facility] Urobilinogen Auto test strip Ql (U)Ordered By: Greg Philip on 09-06-2023 Urobilinogen Ql (U) 1 mg/dl Normal [facility] Absolute lymphocyte countOrd ered By: Marc Carl on 08-22-2023 Lymphocytes Auto (Unsp spec) [#/Vol] 2.29 10*3/uL 0.83-4.51 [facility] Basophil percentageOrdered B y: Marc Carl on 08-22-2023 Basophil percentage 0 SEEN /hpf 0-5 [facility] Basophils/100 WBC (Bld) 0.6 % 0-1 [facility] Bilirubin [Mass/Vol] 0.50 mg/dL 0.20-1.00 [facility] Comment on above: For patients on eltr ombopag therapy, use of [place] TBIL is not recommended. Chloride [Moles/Vol] 106 mmol/L 98-107 [facility] Eosinophils/100 WBC (Bld) 0.9 % 0-5 [facility] Glucose [Mass/Vol] 397 mg/dL 74-106 [facility] Comment on above: Glucose result great er than or equal to 200 mg/dLsuggests DIABETES MELLITUS per A.D.A. criteria. Neutrophils (Bld) [#/Vol] 4.8 10*3/uL 2.0-7.7 [facility] Neutrophils/100 WBC (Bld) 60.5 % 47-70 [facility] Potassium [Moles/Vol] 4.1 mmol/L 3.5-5.1 [facility] Protein [Mass/Vol] 6.6 g/dL 6.4-8.2 [facility] Sodium [Moles/Vol] 138 mmol/L 136-145 [facility] WBC (Bld) [#/Vol] 8.0 10*3/uL 4.4-11.0 [facility] Bilirubin Test strip Ql (U)O rdered By: Marc Carl on 08-22-2023 Bilirubin Ql (U) Negative Negative [facility] Blood erythrocytes count (nu mber/volume)Ordered By: Marc Carl on 08-22-2023 RBC (Bld) [#/Vol] 4.04 10*6/uL 4.2-5.4 [facility] Blood hemoglobin measurement (mass/volume)Ordered By: Marc Carl on 08-22-2023 Hemoglobin (Bld) [Mass/Vol] 11.6 g/dL 12.0-15.0 [facility] Blood lymphocytes/100 leukoc ytesOrdered By: Marc Carl on 08-22-2023 Lymphocytes/100 WBC (Bld) 28.7 % 19-41 [facility] Blood monocytes/100 leukocyt esOrdered By: Marc Carl on 08-22-2023 Monocytes/100 WBC (Bld) 7.9 % 0-10 [facility] Blood platelet mean volumeOr dered By: Marc Calr on 08-22-2023 Platelet mean volume (Bld) [Entitic vol] 12.0 fL 6.2-12.0 [facility] Determination of erythrocyte mean corpuscular volume (MCV)Ordered By: Marc Carl on 08-22-2023 MCV (RBC) [Entitic vol] 92.3 fL 81-99 [facility] Glucose Glucometer (dC) [M ass/Vol]Ordered By: Marc Carl on 08-22-2023 Glucose [Mass/Vol] 207 mg/dL 74-106 [facility] Comment on above: MANAGEMENT OF PATIEN T CARE PER NURSING PROTOCOL Hematocrit Auto (Bld) [Volum e fraction]Ordered By: Marc Carl on 08-22-2023 Hematocrit (Bld) [Volume fraction] 37.3 % 37-47 [facility] Ketones Test strip Ql (U)Ord ered By: Marc Carl on 08-22-2023 Ketones Ql (U) 5 mg/dl Negative [facility] Laboratory - Chemistry and C hemistry - challengeOrdered By: Marc Carl on 08-22-2023 ALP [Catalytic activity/Vol] 72 U/L 45-117 [facility] ALT [Catalytic activity/Vol] 87 U/L 13-56 [facility] CO2 [Moles/Vol] 27.0 mmol/L 21.0-32.0 [facility] Globulin (S) [Mass/Vol] 3.3 g/dL 2.2-4.2 [facility] Urea nitrogen/Creatinine [Mass ratio] 13.4 mg/mg 10-20 [facility] Laboratory - Hematology and Cell countsOrdered By: Marc Carl on 08-22-2023 Erythrocyte distribution width (RBC) [Entitic vol] 45.2 fL 35.1-43.9 [facility] Erythrocyte distribution width (RBC) [Ratio] 13.4 % 11.6-14.6 [facility] Immature granulocytes/100 WBC (Bld) 1.400 % 0.0-0.9 [facility] Comment on above: IG% - Immature Granu locytes (promyelocytes, myelocytes and metamyelocytes) > 1% indicates that a LEFT SHIFT is Present. MCH (RBC) [Entitic mass] 28.7 pg 27.0-32.0 [facility] Nucleated RBC/100 WBC (Bld) [Ratio] 0 % 0-5 [facility] MCHC Auto (RBC) [Mass/Vol]Or dered By: Marc Carl on 08-22-2023 MCHC (RBC) [Mass/Vol] 31.1 g/dL 32-36 [facility] Mucus LM Ql (Urine sed)Order ed By: Marc Carl on 08-22-2023 Mucus Ql (Urine sed) 0 SEEN /hpf [facility] Nitrite Test strip Ql (U)Ord ered By: Marc Carl on 08-22-2023 Nitrite Ql (U) Negative Negative [facility] No Panel InformationOrdered By: Marc Carl on 08-22-2023 Estimated Creatinine Clearance Calc 96.39 ml/min [facility] Estimated GFR (MDRD) Amer 95 mL/min >60 [facility] Comment on above: GFR Calc Estimated GFR (MDRD) Non-Af Amer 79 mL/min >60 [facility] Comment on above: Non- GFR Calc Platelets bldOrdered By: Filipe Carl on 08-22-2023 Platelets (Bld) [#/Vol] 206 10*3/uL 150-450 [facility] Protein Test strip Ql (U)Ord ered By: Marc Carl on 08-22-2023 Protein Ql (U) Negative Negative [facility] Serum or plasma albumin milli urement (mass/volume)Ordered By: Marc Carl on 08-22-2023 Albumin [Mass/Vol] 3.3 g/dL 3.2-5.0 [facility] Serum or plasma albumin/glob ulin mass ratioOrdered By: Marc aCrl on 08-22-2023 Albumin/Globulin [Mass ratio] 1.0 {ratio} 0.9-2.4 [facility] Serum or plasma calcium milli urement (mass/volume)Ordered By: Marc Carl on 08-22-2023 Calcium [Mass/Vol] 8.4 mg/dL 8.5-10.1 [facility] Serum or plasma creatinine m easurement (mass/volume)Ordered By: Marc Carl on 08-22-2023 Creatinine [Mass/Vol] 0.90 mg/dL 0.55-1.02 [facility] Comment on above: The validity of the calculated GFR & GFRAA in patients over 70 years has not been determined. Clinical correlation is essential. Serum or plasma urea nitroge n measurement (mass/volume)Ordered By: Marc Carl on 08-22-2023 Urea nitrogen [Mass/Vol] 12 mg/dL 7-18 [facility] Squamous epithelial cells de tection in urine sediment by light microscopyOrdered By: Marc Carl on 08-22-2023 Epithelial cells.squamous LM Ql (Urine sed) 0-5 SEEN /hpf 5-10 [facility] Thin prep Papanicolaou smear with manual screeningOrdered By: Marc Carl on 08-22-2023 Thin prep Papanicolaou smear with manual screening 36 U/L 15-37 [facility] Thin prep Papanicolaou smear with manual screening 5 5-15 [facility] Urine blood detectionOrdered By: Marc Carl on 08-22-2023 RBC Ql (U) Negative Negative [facility] RBC Ql (U) 0 SEEN /hpf 0-5 [facility] Urine clarityOrdered By: Filipe Carl on 08-22-2023 Clarity (U) Clear Clear [facility] Urine color determinationOrd ered By: Marc Carl on 08-22-2023 Color (U) Yellow Yellow [facility] Urine glucose detectionOrder ed By: Marc Carl on 08-22-2023 Glucose Ql (U) 1000 mg/dl Normal [facility] Urine leukocyte esterase det ection by dipstickOrdered By: Marc Carl on 08-22-2023 Leukocyte esterase Test strip Ql (U) Negative Negative [facility] Urine pHOrdered By: Marc griffiths on 08-22-2023 pH (U) 8.0 [pH] 5.0 - 8.0 [facility] Urine sediment bacteria coun t by microscopy (number/high power field)Ordered By: Marc Carl on 08-22-2023 Bacteria LM.HPF (Urine sed) [#/Area] 0 /[HPF] None Seen [facility] Urine specific gravity measu rementOrdered By: Marc Carl on 08-22-2023 Specific gravity (U) [Rel density] 1.010 1.002-1.030 [facility] Urobilinogen Auto test strip Ql (U)Ordered By: Marc Carl on 08-22-2023 Urobilinogen Ql (U) Normal mg/dl Normal [facility] Basophil percentageOrdered B y: Dangelo Encarnacion on 08-10-2023 Chloride [Moles/Vol] 109 mmol/L 98-107 [facility] Glucose [Mass/Vol] 195 mg/dL 74-106 [facility] Comment on above: Fasting Glucose resu lt greater than or equal to 126 mg/dL suggests DIABETES MELLITUS per A.D.A. criteria. Potassium [Moles/Vol] 3.7 mmol/L 3.5-5.1 [facility] Sodium [Moles/Vol] 139 mmol/L 136-145 [facility] WBC (Bld) [#/Vol] 8.5 10*3/uL 4.4-11.0 [facility] Blood erythrocytes count (nu mber/volume)Ordered By: Dangelo Encarnacion on 08-10-2023 RBC (Bld) [#/Vol] 4.50 10*6/uL 4.2-5.4 [facility] Blood hemoglobin measurement (mass/volume)Ordered By: Dangelo Encarnacion on 08-10-2023 Hemoglobin (Bld) [Mass/Vol] 13.0 g/dL 12.0-15.0 [facility] Blood platelet mean volumeOr dered By: Dangelo Encarnacion on 08-10-2023 Platelet mean volume (Bld) [Entitic vol] 11.8 fL 6.2-12.0 [facility] Determination of erythrocyte mean corpuscular volume (MCV)Ordered By: Dangelo Encarnacion on 08-10-2023 MCV (RBC) [Entitic vol] 88.2 fL 81-99 [facility] Glucose Glucometer (BldC) [M ass/Vol]Ordered By: Dangelo Encarnacion on 08-10-2023 Glucose [Mass/Vol] 208 mg/dL 74-106 [facility] Comment on above: MANAGEMENT OF PATIEN T CARE PER NURSING PROTOCOL Hematocrit Auto (Bld) [Volum e fraction]Ordered By: Dangelo Encarnacion on 08-10-2023 Hematocrit (Bld) [Volume fraction] 39.7 % 37-47 [facility] Laboratory - Chemistry and C hemistry - challengeOrdered By: Dangelo Encarnacion on 08-10-2023 CO2 [Moles/Vol] 20.0 mmol/L 21.0-32.0 [facility] Urea nitrogen/Creatinine [Mass ratio] 15.4 mg/mg 10-20 [facility] Laboratory - Hematology and Cell countsOrdered By: Dangelo Encarnacion on 08-10-2023 Erythrocyte distribution width (RBC) [Entitic vol] 42.0 fL 35.1-43.9 [facility] Erythrocyte distribution width (RBC) [Ratio] 12.9 % 11.6-14.6 [facility] MCH (RBC) [Entitic mass] 28.9 pg 27.0-32.0 [facility] MCHC Auto (RBC) [Mass/Vol]Or dered By: Dangelo Encarnacion on 08-10-2023 MCHC (RBC) [Mass/Vol] 32.7 g/dL 32-36 [facility] No Panel InformationOrdered By: Dangelo Encarnacion on 08-10-2023 Estimated Creatinine Clearance Calc 149.57 ml/min [facility] Estimated GFR (MDRD) Amer 157 mL/min >60 [facility] Comment on above: GFR Calc Estimated GFR (MDRD) Non-Af Amer 129 mL/min >60 [facility] Comment on above: Non- GFR Calc Platelets bldOrdered By: Lauren mitch Alysha on 08-10-2023 Platelets (Bld) [#/Vol] 109 10*3/uL 150-450 [facility] Serum or plasma calcium milli urement (mass/volume)Ordered By: Dangelo Encarnacion on 08-10-2023 Calcium [Mass/Vol] 8.0 mg/dL 8.5-10.1 [facility] Serum or plasma creatinine m easurement (mass/volume)Ordered By: Dangelo Encarnacion on 08-10-2023 Creatinine [Mass/Vol] 0.58 mg/dL 0.55-1.02 [facility] Comment on above: The validity of the calculated GFR & GFRAA in patients over 70 years has not been determined. Clinical correlation is essential. Serum or plasma urea nitroge n measurement (mass/volume)Ordered By: Dangelo Encarnacion on 08-10-2023 Urea nitrogen [Mass/Vol] 9 mg/dL 7-18 [facility] Thin prep Papanicolaou smear with manual screeningOrdered By: Dangelo Encarnacion on 08-10-2023 Thin prep Papanicolaou smear with manual screening 10 5-15 [facility] Basophil percentageOrdered B y: Lul Nkechibing on 08-07-2023 Lactate [Moles/Vol] 2.2 mmol/L 0.4-2.0 [facility] Comment on above: Critical Result(s) C alled at: 06:54:28 08/07/2023 by: Reid Rogers. Colin Hopkins RN (ICU). Results read back by same. HCO3 (BldA) [Moles/Vol]Order ed By: Vamsi Lewis on 08-07-2023 HCO3 (Bld) [Moles/Vol] 12 mmol/L - [facility] - Chemistry and C hemistry - challengeOrdered By: Vamsi Lewis on 08-07-2023 CO2 [Moles/Vol] 13 mmol/L [facility] Magnesium [Mass/Vol] 1.8 mg/dL 1.6-2.6 [facility] Comment on above: Slight Hemolysis, Re sult may be falsely increased. No Panel InformationOrdered By: Vamsi Lewis on 08-07-2023 Bed Mix Venous Bld PCO2 at Pat Temp 28.0 mmHg 41-51 [facility] Blood Gas Oxygen Percent 21.0 [facility] Blood Gas Sample Site Not entered [facility] Blood Gas Specimen Type ISABELLE [facility] Oxygen Delivery Device Not entered [facility] Venous Blood Base Excess -16 mmol/L -1.0-3.5 [facility] PO2 venousOrdered By: Vamsi Lewis on 08-07-2023 Oxygen (BldV) [Partial pressure] 52 mm[Hg] 25-40 [facility] Respiratory pathogens detect ion panel by molecular detection methodOrdered By: Vamsi Lewis on 08-07-2023 Respiratory pathogens DNA and RNA panel DANIEL+probe (Resp) [facility] Respiratory pathogens DNA and RNA panel DANIEL+probe (Resp) [facility] Serum or plasma acetone milli urement (mass/volume)Ordered By: Vamsi Lewis on 08-07-2023 Acetone [Mass/Vol] MODERATE NEG [facility] Vital signsOrdered By: Vamsi Lewis on 08-07-2023 Oxygen saturation in Blood 81 % 50-70 [facility] Whole blood hemoglobin A1c/t otal hemoglobin ratio (mass fraction)Ordered By: Vamsi Lewis on 08-07-2023 HbA1c (Bld) [Mass fraction] 7.0 % 3.8-5.6 [facility] Comment on above: Normal < 5.7 % Predi abetic 5.7 - 6.4 % Diabetic >or= 6.5 % Please note range changes. pH measurementOrdered By: Miller Lewis on 08-07-2023 pH (Unsp spec) 7.24 [pH] 7.32-7.42 [facility] Absolute lymphocyte countOrd ered By: Lul Singh on 08-06-2023 Lymphocytes Auto (Unsp spec) [#/Vol] 0.42 10*3/uL 0.83-4.51 [facility] Absolute lymphocyte countOrd ered By: Juan Marquez on 08-06-2023 Lymphocytes Auto (Unsp spec) [#/Vol] 1.08 10*3/uL 0.83-4.51 [facility] Basophil percentageOrdered B y: Lul Singh on 08-06-2023 Basophils/100 WBC (Bld) 0.5 % 0-1 [facility] Chloride [Moles/Vol] 101 mmol/L 98-107 [facility] Eosinophils/100 WBC (Bld) 0.0 % 0-5 [facility] Glucose [Mass/Vol] 548 mg/dL 74-106 [facility] Comment on above: Critical Result(s) C alled at: 23:51:02 08/06/2023 by: Jay Hill. to Matthew (RN) (ED) Results read back by same.Glucose result greater than or equal to 200 mg/dLsuggests DIABETES MELLITUS per A.D.A. criteria. Lactate [Moles/Vol] 4.4 mmol/L 0.4-2.0 [facility] Comment on above: Critical Result(s) C alled at: 23:51:02 08/06/2023 by: Jay Hill. to Matthew (RN) (ED) Results read back by same. Neutrophils (Bld) [#/Vol] 18.8 10*3/uL 2.0-7.7 [facility] Neutrophils/100 WBC (Bld) 92.7 % 47-70 [facility] Potassium [Moles/Vol] 4.8 mmol/L 3.5-5.1 [facility] Sodium [Moles/Vol] 132 mmol/L 136-145 [facility] WBC (Bld) [#/Vol] 20.3 10*3/uL 4.4-11.0 [facility] Basophil percentage 0 SEEN /hpf 0-5 [facility] Basophil percentageOrdered B y: Juan Marquez on 08-06-2023 Basophils/100 WBC (Bld) 0.2 % 0-1 [facility] Bilirubin [Mass/Vol] 0.70 mg/dL 0.20-1.00 [facility] Comment on above: For patients on eltr ombopag therapy, use of Dimension [place] TBIL is not recommended. Chloride [Moles/Vol] 108 mmol/L 98-107 [facility] Eosinophils/100 WBC (Bld) 0.1 % 0-5 [facility] Glucose [Mass/Vol] 69 mg/dL 74-106 [facility] Neutrophils (Bld) [#/Vol] 19.2 10*3/uL 2.0-7.7 [facility] Neutrophils/100 WBC (Bld) 87.7 % 47-70 [facility] Potassium [Moles/Vol] 3.3 mmol/L 3.5-5.1 [facility] Protein [Mass/Vol] 7.5 g/dL 6.4-8.2 [facility] Sodium [Moles/Vol] 139 mmol/L 136-145 [facility] WBC (Bld) [#/Vol] 21.9 10*3/uL 4.4-11.0 [facility] Beta hCG serum qualOrdered B y: Juan Marquez on 08-06-2023 Beta HCG ( test) Ql Negative [facility] Bilirubin Test strip Ql (U)O rdered By: Lul Singh on 08-06-2023 Bilirubin Ql (U) Negative Negative [facility] Blood erythrocytes count (nu mber/volume)Ordered By: Lul Singh on 08-06-2023 RBC (Bld) [#/Vol] 4.35 10*6/uL 4.2-5.4 [facility] Blood erythrocytes count (nu mber/volume)Ordered By: Juan Marquez on 08-06-2023 RBC (Bld) [#/Vol] 5.03 10*6/uL 4.2-5.4 [facility] Blood hemoglobin measurement (mass/volume)Ordered By: Lul Singh on 08-06-2023 Hemoglobin (Bld) [Mass/Vol] 12.6 g/dL 12.0-15.0 [facility] Blood hemoglobin measurement (mass/volume)Ordered By: Juan Marquez on 08-06-2023 Hemoglobin (Bld) [Mass/Vol] 14.7 g/dL 12.0-15.0 [facility] Blood lymphocytes/100 leukoc ytesOrdered By: Lul Singh on 08-06-2023 Lymphocytes/100 WBC (Bld) 2.1 % 19-41 [facility] Blood lymphocytes/100 leukoc ytesOrdered By: Juan Marquez on 08-06-2023 Lymphocytes/100 WBC (Bld) 4.9 % 19-41 [facility] Blood manual differential co mment interpretation (narrative result)Ordered By: Lul Singh on 08-06-2023 Manual differential comment Faraz (Bld) [Interp] SCANNED [facility] Comment on above: LYMPHOPENIA PRESENT Blood monocytes/100 leukocyt esOrdered By: Lul Singh on 08-06-2023 Monocytes/100 WBC (Bld) 2.0 % 0-10 [facility] Blood monocytes/100 leukocyt esOrdered By: Juan Marquez on 08-06-2023 Monocytes/100 WBC (Bld) 5.6 % 0-10 [facility] Blood platelet mean volumeOr dered By: Lul Singh on 08-06-2023 Platelet mean volume (Bld) [Entitic vol] 13.8 fL 6.2-12.0 [facility] Blood platelet mean volumeOr dered By: Juan Marquez on 08-06-2023 Platelet mean volume (Bld) [Entitic vol] 12.1 fL 6.2-12.0 [facility] Determination of erythrocyte mean corpuscular volume (MCV)Ordered By: Lul Singh on 08-06-2023 MCV (RBC) [Entitic vol] 93.1 fL 81-99 [facility] Determination of erythrocyte mean corpuscular volume (MCV)Ordered By: Juan Marquez on 08-06-2023 MCV (RBC) [Entitic vol] 88.9 fL 81-99 [facility] Glucose Glucometer (dC) [M ass/Vol]Ordered By: Juan Marquez on 08-06-2023 Glucose [Mass/Vol] 397 mg/dL 74-106 [facility] Comment on above: MANAGEMENT OF PATIEN T CARE PER NURSING PROTOCOL HCO3 (BldA) [Moles/Vol]Order ed By: Lul Singh on 08-06-2023 HCO3 (Bld) [Moles/Vol] 12 mmol/L 22-26 [facility] Hematocrit Auto (Bld) [Volum e fraction]Ordered By: Lul Singh on 08-06-2023 Hematocrit (Bld) [Volume fraction] 40.5 % 37-47 [facility] Hematocrit Auto (Bld) [Volum e fraction]Ordered By: Juan Marquez on 08-06-2023 Hematocrit (Bld) [Volume fraction] 44.7 % 37-47 [facility] Ketones Test strip Ql (U)Ord ered By: Lul Singh on 08-06-2023 Ketones Ql (U) 150 mg/dl Negative [facility] Comment on above: CRITICAL VALUE *HCRI TICAL VALUE VERIFIED. CALLED TO [id number]/11/23 0049 [place].RESULTS READ BACK BY SAME. Laboratory - Chemistry and C hemistry - challengeOrdered By: Lul Singh on 08-06-2023 CO2 [Moles/Vol] 13 mmol/L 23-33 [facility] CO2 [Moles/Vol] 14.0 mmol/L 21.0-32.0 [facility] Magnesium [Mass/Vol] 2.0 mg/dL 1.6-2.6 [facility] Urea nitrogen/Creatinine [Mass ratio] 16.1 mg/mg 10-20 [facility] Laboratory - Chemistry and C hemistry - challengeOrdered By: Juan Marquez on 08-06-2023 ALP [Catalytic activity/Vol] 94 U/L 45-117 [facility] ALT [Catalytic activity/Vol] 32 U/L 13-56 [facility] CO2 [Moles/Vol] 26.0 mmol/L 21.0-32.0 [facility] Globulin (S) [Mass/Vol] 3.6 g/dL 2.2-4.2 [facility] Lipase [Catalytic activity/Vol] 16 U/L 13-75 [facility] Comment on above: Please note:LIPASE r evised reference range effective 22. New Lipase methodology. Expected to produce lower values than the previous assay method. NEW Reference Range: 13 - 75 U/L Urea nitrogen/Creatinine [Mass ratio] 20.0 mg/mg 10 [facility] Laboratory - Hematology and Cell countsOrdered By: Lul Singh on 08-06-2023 Erythrocyte distribution width (RBC) [Entitic vol] 45.1 fL 35.1-43.9 [facility] Erythrocyte distribution width (RBC) [Ratio] 13.2 % 11.6-14.6 [facility] Immature granulocytes/100 WBC (Bld) 2.700 % 0.0-0.9 [facility] Comment on above: IG% - Immature Granu locytes (promyelocytes, myelocytes and metamyelocytes) > 1% indicates that a LEFT SHIFT is Present. MCH (RBC) [Entitic mass] 29.0 pg 27.0-32.0 [facility] Nucleated RBC/100 WBC (Bld) [Ratio] 0 % 0-5 [facility] Laboratory - Hematology and Cell countsOrdered By: Juan Marquez on 08-06-2023 Erythrocyte distribution width (RBC) [Entitic vol] 42.0 fL 35.1-43.9 [facility] Erythrocyte distribution width (RBC) [Ratio] 12.9 % 11.6-14.6 [facility] Immature granulocytes/100 WBC (Bld) 1.500 % 0.0-0.9 [facility] Comment on above: IG% - Immature Granu locytes (promyelocytes, myelocytes and metamyelocytes) > 1% indicates that a LEFT SHIFT is Present. MCH (RBC) [Entitic mass] 29.2 pg 27.0-32.0 [facility] Nucleated RBC/100 WBC (Bld) [Ratio] 0 % 0- [facility] MCHC Auto (RBC) [Mass/Vol]Or dered By: Lul Singh on 08-06-2023 MCHC (RBC) [Mass/Vol] 31.1 g/dL [facility] Comment on above: Delta: 32.9 on 08/06 MCHC Auto (RBC) [Mass/Vol]Or dered By: Juan Marquez on 08-06-2023 MCHC (RBC) [Mass/Vol] 32.9 g/dL [facility] Mucus LM Ql (Urine sed)Order ed By: Lul Singh on 08-06-2023 Mucus Ql (Urine sed) 0 SEEN /hpf [facility] Nitrite Test strip Ql (U)Ord ered By: Lul Singh on 08-06-2023 Nitrite Ql (U) Negative Negative [facility] No Panel InformationOrdered By: Lul Singh on 08-06-2023 Bed Mix Venous Bld PCO2 at Pat Temp 22.9 mmHg 41-51 [facility] Blood Gas Sample Site Not entered [facility] Blood Gas Specimen Type ISABELLE [facility] Oxygen Delivery Device Room Air Wo [facility] Venous Blood Base Excess -14 mmol/L -1.0-3.5 [facility] Estimated Creatinine Clearance Calc 73.52 ml/min [facility] Estimated GFR (MDRD) Amer 70 mL/min >60 [facility] Comment on above: GFR Calc Estimated GFR (MDRD) Non-Af Amer 58 mL/min >60 [facility] Comment on above: Non- GFR Calc No Panel InformationOrdered By: Juan Marquez on 08-06-2023 Estimated Creatinine Clearance Calc 108.44 ml/min [facility] Estimated GFR (MDRD) Amer 109 mL/min >60 [facility] Comment on above: GFR Calc Estimated GFR (MDRD) Non-Af Amer 90 mL/min >60 [facility] Comment on above: Non- GFR Calc PO2 venousOrdered By: Lul Singh on 08-06-2023 Oxygen (BldV) [Partial pressure] 58 mm[Hg] 25-40 [facility] Platelets bldOrdered By: Lane Singh on 08-06-2023 Platelets (Bld) [#/Vol] 140 10*3/uL 150-450 [facility] Platelets bldOrdered By: Lauren Marquez on 08-06-2023 Platelets (Bld) [#/Vol] 199 10*3/uL 150-450 [facility] Protein Test strip Ql (U)Ord ered By: Lul Singh on 08-06-2023 Protein Ql (U) Negative Negative [facility] Serum or plasma acetone milli urement (mass/volume)Ordered By: Lul Singh on 08-06-2023 Acetone [Mass/Vol] SMALL NEG [facility] Serum or plasma albumin milli urement (mass/volume)Ordered By: Juan Marquez on 08-06-2023 Albumin [Mass/Vol] 3.9 g/dL 3.2-5.0 [facility] Serum or plasma albumin/glob ulin mass ratioOrdered By: Juan Marquez on 08-06-2023 Albumin/Globulin [Mass ratio] 1.1 {ratio} 0.9-2.4 [facility] Serum or plasma calcium milli urement (mass/volume)Ordered By: Lul Singh on 08-06-2023 Calcium [Mass/Vol] 9.1 mg/dL 8.5-10.1 [facility] Serum or plasma calcium milli urement (mass/volume)Ordered By: Juan Marquez on 08-06-2023 Calcium [Mass/Vol] 9.6 mg/dL 8.5-10.1 [facility] Serum or plasma creatinine m easurement (mass/volume)Ordered By: Lul Singh on 08-06-2023 Creatinine [Mass/Vol] 1.18 mg/dL 0.55-1.02 [facility] Comment on above: The validity of the calculated GFR & GFRAA in patients over 70 years has not been determined. Clinical correlation is essential. Serum or plasma creatinine m easurement (mass/volume)Ordered By: Juan Marquez on 08-06-2023 Creatinine [Mass/Vol] 0.80 mg/dL 0.55-1.02 [facility] Comment on above: The validity of the calculated GFR & GFRAA in patients over 70 years has not been determined. Clinical correlation is essential. Serum or plasma urea nitroge n measurement (mass/volume)Ordered By: Lul Singh on 08-06-2023 Urea nitrogen [Mass/Vol] 19 mg/dL 03-14 [facility] Serum or plasma urea nitroge n measurement (mass/volume)Ordered By: Juan Marquez on 08-06-2023 Urea nitrogen [Mass/Vol] 16 mg/dL 03-14 [facility] Squamous epithelial cells de tection in urine sediment by light microscopyOrdered By: Lul Singh on 08-06-2023 Epithelial cells.squamous LM Ql (Urine sed) 0-5 SEEN /hpf -10 [facility] Thin prep Papanicolaou smear with manual screeningOrdered By: Lul Singh on 08-06-2023 Thin prep Papanicolaou smear with manual screening 17 5-15 [facility] Thin prep Papanicolaou smear with manual screeningOrdered By: Juan Marquez on 08-06-2023 Thin prep Papanicolaou smear with manual screening 15 U/L 15-37 [facility] Thin prep Papanicolaou smear with manual screening 5 5-15 [facility] Urine blood detectionOrdered By: Lul Singh on 08-06-2023 RBC Ql (U) 10 /ul Negative [facility] RBC Ql (U) 0 SEEN /hpf 0-5 [facility] Urine clarityOrdered By: Lane Singh on 08-06-2023 Clarity (U) Clear Clear [facility] Urine color determinationOrd ered By: Lul Singh on 08-06-2023 Color (U) Yellow Yellow [facility] Urine glucose detectionOrder ed By: Lul Singh on 08-06-2023 Glucose Ql (U) 1000 mg/dl Normal [facility] Urine leukocyte esterase det ection by dipstickOrdered By: Lul Singh on 08-06-2023 Leukocyte esterase Test strip Ql (U) Negative Negative [facility] Urine pHOrdered By: Lul fontaine on 08-06-2023 pH (U) 5.0 [pH] 5.0 - 8.0 [facility] Urine sediment bacteria coun t by microscopy (number/high power field)Ordered By: Lul Singh on 08-06-2023 Bacteria LM.HPF (Urine sed) [#/Area] 0 /[HPF] None Seen [facility] Urine specific gravity measu rementOrdered By: Lul Singh on 08-06-2023 Specific gravity (U) [Rel density] 1.015 1.002-1.030 [facility] Urobilinogen Auto test strip Ql (U)Ordered By: Lul Singh on 08-06-2023 Urobilinogen Ql (U) Normal mg/dl Normal [facility] Vital signsOrdered By: Partha Singh on 08-06-2023 Oxygen saturation in Blood 89 % 50-70 [facility] pH measurementOrdered By: Yarelis Singh on 08-06-2023 pH (Unsp spec) 7.34 [pH] 7.32-7.42 [facility] CBC panel Auto (Bld)on 07-12 Erythrocyte distribution width (RBC) [Ratio] 13.3 % Normal 11.5-15.0 [facility] Comment on above: Order Comment: Speci men Type: BLOOD SPECIMEN Ordering Facility: [facility] Address: [address] [place] [id number] Performed By: #### 3 1201-7, 5195-3, 96073-7, SYPH #### [facility] CLIA [id number] [address] [place], [place] [id number] [place] Hematocrit (Bld) [Volume fraction] 44.2 % Normal 36.0-46.0 [facility] Comment on above: Order Comment: Speci men Type: BLOOD SPECIMEN Ordering Facility: [facility] Address: [address] Performed By: #### 3 1201-7, 5195-3, 70992-7, SYPH #### [facility] CLIA [id number] [address] [place] [address] [place] Hemoglobin (Bld) [Mass/Vol] 14.8 g/dL Normal 11.5-15.5 [facility] Comment on above: Order Comment: Speci men Type: BLOOD SPECIMEN Ordering Facility: [facility] Address: [address] Performed By: #### 3 1201-7, 5195-3, 57611-4, SYPH #### [facility] CLIA [id number] [address] [place] [address] [place] MCH (RBC) [Entitic mass] 29.4 pg Normal 26.0-34.0 [facility] Comment on above: Order Comment: Speci men Type: BLOOD SPECIMEN Ordering Facility: [facility] Address: [address] [place] [address] Performed By: #### 3 1201-7, 5195-3, 36659-6, SYPH #### [facility] CLIA [id number] [address] [place] [address] [place] MCHC (RBC) [Mass/Vol] 33.5 g/dL Normal 30.5-36.0 [facility] Comment on above: Order Comment: Speci men Type: BLOOD SPECIMEN Ordering Facility: [facility] Address: [address] Performed By: #### 3 1201-7, 5195-3, 27683-4, SYPH #### [facility] CLIA [id number] [address] [place], [place] [id number] [place] MCV (RBC) [Entitic vol] 87.7 fL Normal 80.0-100.0 [facility] Comment on above: Order Comment: Speci men Type: BLOOD SPECIMEN Ordering Facility: [facility] Address: [address] [place] [address] Performed By: #### 3 1201-7, 5194-3, 58921-8, SYPH #### [facility] CLIA [id number] [address] [place] [address] [place] Nucleated RBC (Bld) [#/Vol] 10*3/uL Normal <0.01 [facility] Comment on above: Order Comment: Speci men Type: BLOOD SPECIMEN Ordering Facility: [facility] Address: [address] [place] [address] Performed By: #### 3 1201-7, 5194-3, , SYPH #### [facility] CLIA [id number] [address] [place], [place] [address] [place] Platelet mean volume (Bld) [Entitic vol] 13.3 fL High 9.0-12.7 [facility] Comment on above: Order Comment: Speci men Type: BLOOD SPECIMEN Ordering Facility: [facility] Address: [address] [place] [address] Performed By: #### 3 1201-7, 3, , SYPH #### [facility] CLIA [id number] [address] [place] [address] [place] Platelets (Bld) [#/Vol] 111 10*3/uL Low 150-400 [facility] Comment on above: Order Comment: Speci men Type: BLOOD SPECIMEN Ordering Facility: [facility] Address: [address] [place] [address] Result Comment: No c lot detected. Performed By: #### 3 1201-7, 5194-3, 84276-0, SYPH #### [facility] CLIA [id number] [address] [place], [place] [address] [place] RBC (Bld) [#/Vol] 5.04 10*6/uL Normal 3.90-5.20 [facility] Comment on above: Order Comment: Speci men Type: BLOOD SPECIMEN Ordering Facility: [facility] Address: [address] [place] [address] Performed By: #### 3 1201-7, 5195-3, 58740-3, SYPH #### [facility] CLIA [id number] [address] [place], [place] [address] [place] WBC (Bld) [#/Vol] 11.34 10*3/uL High 3.70-11.00 [facility] Comment on above: Order Comment: Speci men Type: BLOOD SPECIMEN Ordering Facility: [facility] Address: [address] [place], [place] [id number] Performed By: #### 3 1201-7, 5195-3, 68945-2, SYPH #### [facility] CLIA [id number] [address] [place], [place] [address] [place] CTA ABD/PEL W IVCONon 2022 CTA ABD/PEL W IVCON * * *Final Report* * * DATE OF EXAM: Jul 12 2023 10:08AM [facility] 0311 - CTA ABD/PEL W IVCON [...] aorta without acute aortic pathology. Dictated by Broker: Dutch Aguilar DO I, Jose M Llerena-Riquelme, MD, have supervised the procedure and/or image review, and agree with the above interpretation and report. Facility Manager Histology: CONCHITA Transcribe Date/Time: Jul 12 2023 10:10A Dictated by : DUTCH AGUILAR DO This examination was interpreted and the report reviewed and electronically signed by: VALDO ISLAS MD on Jul 12 2023 2:59PM EST [id number] Normal [facility] CTA CHEST (GATED) WO/W IVCON on 07-12-2023 CTA CHEST (GATED) WO/W IVCON * * *Final Report* * * DATE OF EXAM: Jul 12 2023 10:08AM [facility] 0126 - CTA CHEST (GATED) WO/W [...] aorta without acute aortic pathology. Dictated by Broker: Dutch Aguilar DO I, Valdo Islas MD, have supervised the procedure and/or image review, and agree with the above interpretation and report. Facility Manager Histology: CONCHITA Transcribe Date/Time: Jul 12 2023 10:10A Dictated by : DUTCH AGUILAR DO This examination was interpreted and the report reviewed and electronically signed by: VALDO ISLAS MD on Jul 12 2023 2:59PM EST [id number] Normal [facility] Comprehensive metabolic 2000 panelon 07-12-2023 Albumin [Mass/Vol] 3.6 g/dL Normal 3.2-5.0 [facility] Comment on above: Order Comment: Speci men Type: BLOOD SPECIMENOrdering Facility: [facility] Address: [address] [place] [address] Performed By: #### 2 4323-8, ####[facility]ORYCLIA [id number] [place] [address] [place] ALP [Catalytic activity/Vol] 80 U/L Normal 45-117 [facility] Comment on above: Order Comment: Speci men Type: BLOOD SPECIMENOrdering Facility: [facility] Address: [address] [place] [address] Performed By: #### 2 4323-8, ####[facility]ORYCLIA [id number] [place] [id number] [place] ALT [Catalytic activity/Vol] 74 U/L High 13-61 [facility] Comment on above: Order Comment: Speci men Type: BLOOD SPECIMENOrdering Facility: [facility] Address: [address] [place] [address] Result Comment: Resu lts may be falsely depressed after the administration of Sulfasalazine and/or Sulfapyridine. Performed By: #### 2 4323-8, ####[facility]ORYCLIA [id number] [place] [id number] [place] Anion gap [Moles/Vol] 9 mmol/L Normal 5-16 [facility] Comment on above: Order Comment: Belindai jeb Type: BLOOD SPECIMENOrdering Facility: [facility] Address: [address] [place] [address] Performed By: #### 2 4323-8, ####[facility]ORYCLIA [id number] [address] [place] AST [Catalytic activity/Vol] 44 U/L High 8-34 [facility] Comment on above: Order Comment: Speci men Type: BLOOD SPECIMENOrdering Facility: [facility] Address: [address] [place] [address] Result Comment: Resu lts may be falsely depressed after the administration of Sulfasalazine and/or Sulfapyridine. Performed By: #### 2 4323-8, ####[facility]ORYCLIA [id number] [place] [id number] [place] Bilirubin [Mass/Vol] 0.4 mg/dL Normal 0.2-1.0 [facility] Comment on above: Order Comment: Speci men Type: BLOOD SPECIMENOrdering Facility: [facility] Address: [address] [place] [address] Performed By: #### 2 4323-8, ####[facility]ORYCLIA [id number] [place] [id number] [place] Calcium [Mass/Vol] 9.2 mg/dL Normal 8.5-10.5 [facility] Comment on above: Order Comment: Speci men Type: BLOOD SPECIMENOrdering Facility: [facility] Address: [address] [place] [address] Performed By: #### 2 4323-8, ####[facility]ORYCLIA [id number] [place] [id number] [place] Chloride [Moles/Vol] 104 mmol/L Normal 98-107 [facility] Comment on above: Order Comment: Speci men Type: BLOOD SPECIMENOrdering Facility: [facility] Address: [address] [place] [address] Performed By: #### 2 4328, ####[facility]ORYCLIA [id number] [place] [address] [place] CO2 [Moles/Vol] 26 mmol/L Normal 21-32 [facility] Comment on above: Order Comment: Speci men Type: BLOOD SPECIMENOrdering Facility: [facility] Address: [address] [place] [address] Performed By: #### 2 4323-8, ####[facility]ORYCLIA [id number] [place] [address] [place] Creatinine [Mass/Vol] 0.63 mg/dL Normal 0.51-0.95 [facility] Comment on above: Order Comment: Speci men Type: BLOOD SPECIMENOrdering Facility: [facility] Address: [address] [place] [address] Result Comment: Cleopatra ents receiving either N-Acetylcysteine (NAC) or Metamizole prior to venipuncture, may have falsely depressed results. Performed By: #### 2 4323-8, ####[facility]ORYCLIA [id number] [place] [id number] [place] Creatinine and Glomerular filtration rate.predicted panel (S/P/Bld) 124 mL/min/1.73m??? Normal >=60 [facility] Comment on above: Order Comment: Jon russ Type: BLOOD SPECIMENOrdering Facility: [facility] Address: [address] [place] [address] Result Comment: Janett mated Glomerular Filtration Rate [...] reflect actual GFR. Performed By: #### 2 4323-8, ####[facility]ORYCLIA [id number] [place] [id number] [place] Glucose [Mass/Vol] 313 mg/dL High 70-100 [facility] Comment on above: Order Comment: Jon russ Type: BLOOD SPECIMENOrdering Facility: [facility] Address: [address] [place] [address] Result Comment: The [place] Diabetes Association (ADA) provides guidance for cutoff [...] Standards of Medical Care in Diabetes 2016, [place] [employer]. Diabetes Care. 2016.39(Suppl 1). Results may be falsely elevated after the administration of Sulfapyridine. Results may be falsely depressed after the administration of Sulfasalazine. Performed By: #### 2 4323-8, 92001-0 ####[facility]ORYCLIA [id number] [place] [id number] [place] Potassium [Moles/Vol] 4.0 mmol/L Normal 3.5-5.1 [facility] Comment on above: Order Comment: Jon russ Type: BLOOD SPECIMENOrdering Facility: [facility] Address: [address] [place] [id number] Performed By: #### 2 4323-8, ####[facility]ORYCLIA [id number] [place] [id number] [place] Protein [Mass/Vol] 6.3 g/dL Normal 6.0-8.5 [facility] Comment on above: Order Comment: Speci men Type: BLOOD SPECIMENOrdering Facility: [facility] Address: [address] [place] [address] Performed By: #### 2 4323-8, ####[facility]ORYCLIA [id number] [place] [id number] [place] Sodium [Moles/Vol] 139 mmol/L Normal 136-145 [facility] Comment on above: Order Comment: Speci men Type: BLOOD SPECIMENOrdering Facility: [facility] Address: [address] [place] [address] Performed By: #### 2 4323-8, ####[facility]ORYCLIA [id number] [place] [id number] [place] Urea nitrogen [Mass/Vol] 16 mg/dL Normal 7-26 [facility] Comment on above: Order Comment: Speci men Type: BLOOD SPECIMENOrdering Facility: [facility] Address: [address] [place] [id number] Performed By: #### 2 4323-8, ####[facility]ATORYCLIA [id number] [place] [id number] [place] ECG COMPLETEon 07-12-2023 ECG COMPLETE Ventricular Rate : 9 6 BPM Atrial Rate : 96 BPM P-R Interval : 132 ms QRS Duration : 78 ms Q-T Interval : 370 ms QTC Calculation(Bazett) : 468 ms Calculated P Bowler : 49 degrees Calculated R Bowler : 95 degrees Calculated T Bowler : 68 degrees Normal sinus rhythm with sinus arrhythmia Normal ECG When compared with ECG of 31-JAN-2023 19:42, Nonspecific T wave abnormality no longer evident in Inferior leads Nonspecific T wave abnormality, improved in Anterolateral leads Confirmed by ANASTASIA CHENG MD ([id number]) on 07/13/2023 7:59:29 PM NAME : KATHLEEN VILLA PID : [id number] : 1995 Gender : Female Race : ORD : [id number] Procedure Date : Jul 12 2023 03:45:28 Edit Date : Jul 13 2023 19:59:34 Diagnosis: Normal sinus rhythm with sinus arrhythmia Normal ECG When compared with ECG of 31-JAN-2023 19:42, Nonspecific T wave abnormality no longer evident in Inferior leads Nonspecific T wave abnormality, improved in Anterolateral leads Confirmed by ANASTASIA CHENG MD ([id number]) on 07/13/2023 7:59:29 PM Test Reason : STAT Location : 0 : ED A Overread By : ANASTASIA CHENG MD Edited By : ANASTASIA CHENG MD Referred By : , Acquired by : [facility], [facility] ED NOTEon 07-12-2023 ED NOTE HNO ID: [id number] Author: Vinayak Arevalo RN Service: ? Author Type: Registered Nurse Type: ED Notes Filed: 07/12/2023 10:15 AM Note Text: Pt c/o CP after CT. Dr Cortes notified [facility] ED NOTE HNO ID: [id number] Author: Jhoana Hope RN Service: ? Author Type: Registered Nurse Type: ED Notes Filed: 07/12/2023 6:05 AM Note Text: Failed IV/ Blood draw attempts x 2 by multiple staff members. Pt states she has a port and would like it accessed. [facility] ED PROV NOTEon 07-12-2023 ED PROV NOTE HNO ID: [id number] Author: Zohreh Cortes MD Service: ? Author [...] and time. (more content not included)... Normal [facility] HIGH SENSITIVITY TROPONIN Io n 07-12-2023 Tropinin I.cardiac panel High sensitivity method <2.5 Normal 0.0-34.0 [facility] Comment on above: Order Comment: Speci men Type: BLOOD SPECIMEN Ordering Facility: [facility] Address: [address] [place] [address] Result Comment: This assay uses different antibodies than our current assay, and assays, even by the same bus and rail operator may recognize different regions of the antibody and cannot be used interchangeably. Expect results of this assay to run higher than the previous assay. Performed By: #### 3 1201-7, 5195-3, 72888-5, SYPH #### [facility] CLIA [id number] [address] [place] [address] [place] Tropinin I.cardiac panel High sensitivity method 3.3 pg/mL Normal 0.0-34.0 [facility] Comment on above: Order Comment: Speci men Type: BLOOD SPECIMEN Ordering Facility: [facility] Address: [address] [place] [address] Result Comment: This assay uses different antibodies than our current assay, and assays, even by the same bus and rail operator may recognize different regions of the antibody and cannot be used interchangeably. Expect results of this assay to run higher than the previous assay. Performed By: #### 3 1201-7, 5195-3, 94428-9, SYPH #### [facility] CLIA [id number] [address] [place] [address] [place] Lipase SerPl-cCncon 07-12-20 23 Lipase [Catalytic activity/Vol] 23 U/L Normal 12-60 [facility] Comment on above: Order Comment: Speci men Type: BLOOD SPECIMENOrdering Facility: [facility] Address: [address] [place] [address] Performed By: #### 3 040-3 ####[facility]ORYCLIA [id number] [place] [address] [place] MORPH WAM REFLEXon 3 Platelets Estimate (Bld) [#/Vol] Decreased Normal [facility] Comment on above: Order Comment: Speci men Type: BLOOD SPECIMEN Ordering Facility: [facility] Address: [address] [place] [address] Performed By: #### 3 1201-7, 5195-3, 82824-4, SYPH #### [facility] CLIA [id number] [address] [place] [address] RED CELL MORPH Reviewed: unremarkable Normal [facility] Comment on above: Order Comment: Speci men Type: BLOOD SPECIMEN Ordering Facility: [facility] Address: [address] [place] [address] Performed By: #### 3 1201-7, 5195-3, 43775-3, SYPH #### [facility] CLIA [id number] [address] [place] [address] Magnesium SerPl-mCncon 07-12 Magnesium [Mass/Vol] 1.8 mg/dL Normal 1.6-2.6 [facility] Comment on above: Order Comment: Speci men Type: BLOOD SPECIMEN Ordering Facility: [facility] Address: [address] [place], [place] [address] Performed By: #### 3 1201-7, 5195-3, 12241-4, SYPH #### [facility] CLIA [id number] [address] [place] [address] XR CHEST 2V FRONTAL/LATon XR CHEST 2V FRONTAL/LAT * * *Final Report* * * DATE OF EXAM: Jul 12 2023 4:22AM RHX [id number] - XR CHEST 2V FRONTAL/LAT / PROCEDURE REASON: Chest Pain * * * * Physician Interpretation * * * * EXAMINATION: 2 VIEW CHEST RADIOGRAPH (PA/AP AND LATERAL) PATIENT/TECHNOLOGIST PROVIDED HISTORY: CHEST PAIN TONIGHT, HX OF OPEN HEART IN 2015 CLINICAL INFORMATION ( PROVIDED BY ORDERING CLINICIAN) [...] significant acute radiographic abnormality of the chest. Facility Manager Histology: PSCSinai Transcribe Date/Time: Jul 12 2023 4:44A Dictated by : LETICIA HUTCHINS MD This examination was interpreted and the report reviewed and electronically signed by: LETICIA HUTCHINS MD on Jul 12 2023 4:45AM EST [id number] [facility] Absolute lymphocyte countOrd ered By: Siddharth Herrera on 06-26-2023 Lymphocytes Auto (Unsp spec) [#/Vol] 0.96 10*3/uL 0.83-4.51 [facility] Basophil percentageOrdered B y: Siddharth Herrera on 06-26-2023 Basophils/100 WBC (Bld) 0.1 % 0-1 [facility] Bilirubin [Mass/Vol] 0.90 mg/dL 0.20-1.00 [facility] Comment on above: For patients on eltr ombopag therapy, use of Dimension [place] TBIL is not recommended. Chloride [Moles/Vol] 104 mmol/L 98-107 [facility] Eosinophils/100 WBC (Bld) 0.0 % 0-5 [facility] Glucose [Mass/Vol] 254 mg/dL 74-106 [facility] Comment on above: Glucose result great er than or equal to 200 mg/dLsuggests DIABETES MELLITUS per A.D.A. criteria. Neutrophils (Bld) [#/Vol] 12.6 10*3/uL 2.0-7.7 [facility] Neutrophils/100 WBC (Bld) 88.9 % 47-70 [facility] Potassium [Moles/Vol] 3.5 mmol/L 3.5-5.1 [facility] Protein [Mass/Vol] 6.8 g/dL 6.4-8.2 [facility] Sodium [Moles/Vol] 137 mmol/L 136-145 [facility] WBC (Bld) [#/Vol] 14.2 10*3/uL 4.4-11.0 [facility] Blood erythrocytes count (nu mber/volume)Ordered By: Siddharth Herrera on 06-26-2023 RBC (Bld) [#/Vol] 4.21 10*6/uL 4.2-5.4 [facility] Blood hemoglobin measurement (mass/volume)Ordered By: Siddharth Herrera on 06-26-2023 Hemoglobin (Bld) [Mass/Vol] 12.3 g/dL 12.0-15.0 [facility] Blood lymphocytes/100 leukoc ytesOrdered By: Siddharth Herrera on 06-26-2023 Lymphocytes/100 WBC (Bld) 6.8 % 19-41 [facility] Blood monocytes/100 leukocyt esOrdered By: Siddharth Herrera on 06-26-2023 Monocytes/100 WBC (Bld) 3.4 % 0-10 [facility] Blood platelet mean volumeOr dered By: Siddharth Herrera on 06-26-2023 Platelet mean volume (Bld) [Entitic vol] 12.7 fL 6.2-12.0 [facility] Determination of erythrocyte mean corpuscular volume (MCV)Ordered By: Siddharth Herrera on 06-26-2023 MCV (RBC) [Entitic vol] 90.5 fL 81-99 [facility] Hematocrit Auto (Bld) [Volum e fraction]Ordered By: Siddharth Herrera on 06-26-2023 Hematocrit (Bld) [Volume fraction] 38.1 % 37-47 [facility] - Chemistry and C hemistry - challengeOrdered By: Siddharth Herrera on 06-26-2023 ALP [Catalytic activity/Vol] 86 U/L 45-117 [facility] ALT [Catalytic activity/Vol] 69 U/L 13-56 [facility] CO2 [Moles/Vol] 21.0 mmol/L 21.0-32.0 [facility] Globulin (S) [Mass/Vol] 3.2 g/dL 2.2-4.2 [facility] Lipase [Catalytic activity/Vol] U/L 13-75 [facility] Comment on above: Please note:LIPASE r evised reference range effective 22. New Lipase methodology. Expected to produce lower values than the previous assay method. NEW Reference Range: 13 - 75 U/L Urea nitrogen/Creatinine [Mass ratio] 18.9 mg/mg 10-20 [facility] - Hematology and Cell countsOrdered By: Siddharth Herrera on 06-26-2023 Erythrocyte distribution width (RBC) [Entitic vol] 42.9 fL 35.1-43.9 [facility] Erythrocyte distribution width (RBC) [Ratio] 13.0 % 11.6-14.6 [facility] Immature granulocytes/100 WBC (Bld) 0.800 % 0.0-0.9 [facility] Comment on above: IG% - Immature Granu locytes (promyelocytes, myelocytes and metamyelocytes) > 1% indicates that a LEFT SHIFT is Present. MCH (RBC) [Entitic mass] 29.2 pg 27.0-32.0 [facility] Nucleated RBC/100 WBC (Bld) [Ratio] 0 % 0-5 [facility] MCHC Auto (RBC) [Mass/Vol]Or dered By: Siddharth Herrera on 06-26-2023 MCHC (RBC) [Mass/Vol] 32.3 g/dL 32-36 [facility] No Panel InformationOrdered By: Siddharth Herrera on 06-26-2023 Estimated Creatinine Clearance Calc 102.98 ml/min [facility] Estimated GFR (MDRD) Amer 102 mL/min >60 [facility] Comment on above: GFR Calc Estimated GFR (MDRD) Non-Af Amer 84 mL/min >60 [facility] Comment on above: Non- GFR Calc Platelets bldOrdered By: Margarita Herrera on 06-26-2023 Platelets (Bld) [#/Vol] 160 10*3/uL 150-450 [facility] Serum or plasma albumin milli urement (mass/volume)Ordered By: Siddharth Herrera on 06-26-2023 Albumin [Mass/Vol] 3.6 g/dL 3.2-5.0 [facility] Serum or plasma albumin/glob ulin mass ratioOrdered By: Siddharth Herrera on 06-26-2023 Albumin/Globulin [Mass ratio] 1.1 {ratio} 0.9-2.4 [facility] Serum or plasma calcium milli urement (mass/volume)Ordered By: Siddharth Herrera on 06-26-2023 Calcium [Mass/Vol] 8.8 mg/dL 8.5-10.1 [facility] Serum or plasma creatinine m easurement (mass/volume)Ordered By: Siddharth Herrera on 06-26-2023 Creatinine [Mass/Vol] 0.85 mg/dL 0.55-1.02 [facility] Comment on above: The validity of the calculated GFR & GFRAA in patients over 70 years has not been determined. Clinical correlation is essential. Serum or plasma urea nitroge n measurement (mass/volume)Ordered By: Siddharth Herrera on 06-26-2023 Urea nitrogen [Mass/Vol] 16 mg/dL 7-18 [facility] Thin prep Papanicolaou smear with manual screeningOrdered By: Siddharth Herrera on 06-26-2023 Thin prep Papanicolaou smear with manual screening 35 U/L 15-37 [facility] Thin prep Papanicolaou smear with manual screening 12 5-15 [facility] Absolute lymphocyte countOrd ered By: Greg Philip on 06-25-2023 Lymphocytes Auto (Unsp spec) [#/Vol] 2.12 10*3/uL 0.83-4.51 [facility] Basophil percentageOrdered B y: Greg Philip on 06-25-2023 Basophils/100 WBC (Bld) 0.4 % 0-1 [facility] Bilirubin [Mass/Vol] 0.60 mg/dL 0.20-1.00 [facility] Comment on above: For patients on eltr ombopag therapy, use of [place] TBIL is not recommended. Chloride [Moles/Vol] 109 mmol/L 98-107 [facility] Eosinophils/100 WBC (Bld) 0.4 % 0-5 [facility] Glucose [Mass/Vol] 283 mg/dL 74-106 [facility] Comment on above: Glucose result great er than or equal to 200 mg/dLsuggests DIABETES MELLITUS per A.D.A. criteria. Neutrophils (Bld) [#/Vol] 9.2 10*3/uL 2.0-7.7 [facility] Neutrophils/100 WBC (Bld) 75.9 % 47-70 [facility] Potassium [Moles/Vol] 3.8 mmol/L 3.5-5.1 [facility] Protein [Mass/Vol] 6.9 g/dL 6.4-8.2 [facility] Sodium [Moles/Vol] 140 mmol/L 136-145 [facility] WBC (Bld) [#/Vol] 12.1 10*3/uL 4.4-11.0 [facility] Beta hCG serum qualOrdered B y: Greg Philip on 06-25-2023 Beta HCG ( test) Ql Negative [facility] Blood erythrocytes count (nu mber/volume)Ordered By: Greg Philip on 06-25-2023 RBC (Bld) [#/Vol] 4.56 10*6/uL 4.2-5.4 [facility] Blood hemoglobin measurement (mass/volume)Ordered By: Greg Philip on 06-25-2023 Hemoglobin (Bld) [Mass/Vol] 13.5 g/dL 12.0-15.0 [facility] Blood lymphocytes/100 leukoc ytesOrdered By: Greg Philip on 06-25-2023 Lymphocytes/100 WBC (Bld) 17.5 % 19-41 [facility] Blood monocytes/100 leukocyt esOrdered By: Greg Philip on 06-25-2023 Monocytes/100 WBC (Bld) 5.0 % 0-10 [facility] Blood platelet mean volumeOr dered By: Greg Philip on 06-25-2023 Platelet mean volume (Bld) [Entitic vol] 12.9 fL 6.2-12.0 [facility] Determination of erythrocyte mean corpuscular volume (MCV)Ordered By: Greg Philip on 06-25-2023 MCV (RBC) [Entitic vol] 89.5 fL 81-99 [facility] Hematocrit Auto (Bld) [Volum e fraction]Ordered By: Greg Philip on 06-25-2023 Hematocrit (Bld) [Volume fraction] 40.8 % 37-47 [facility] - Chemistry and C hemistry - challengeOrdered By: Greg Philip on 06-25-2023 ALP [Catalytic activity/Vol] 85 U/L 45-117 [facility] ALT [Catalytic activity/Vol] 70 U/L 13-56 [facility] CO2 [Moles/Vol] 22.0 mmol/L 21.0-32.0 [facility] Globulin (S) [Mass/Vol] 3.2 g/dL 2.2-4.2 [facility] Lipase [Catalytic activity/Vol] 16 U/L 13-75 [facility] Comment on above: Please note:LIPASE r evised reference range effective 22. New Lipase methodology. Expected to produce lower values than the previous assay method. NEW Reference Range: 13 - 75 U/L Urea nitrogen/Creatinine [Mass ratio] 17.3 mg/mg 10-20 [facility] Laboratory - Hematology and Cell countsOrdered By: Greg Philip on 06-25-2023 Erythrocyte distribution width (RBC) [Entitic vol] 42.5 fL 35.1-43.9 [facility] Erythrocyte distribution width (RBC) [Ratio] 13.1 % 11.6-14.6 [facility] Immature granulocytes/100 WBC (Bld) 0.800 % 0.0-0.9 [facility] Comment on above: IG% - Immature Granu locytes (promyelocytes, myelocytes and metamyelocytes) > 1% indicates that a LEFT SHIFT is Present. MCH (RBC) [Entitic mass] 29.6 pg 27.0-32.0 [facility] Nucleated RBC/100 WBC (Bld) [Ratio] 0 % 0-5 [facility] MCHC Auto (RBC) [Mass/Vol]Or dered By: Greg Philip on 06-25-2023 MCHC (RBC) [Mass/Vol] 33.1 g/dL 32-36 [facility] No Panel InformationOrdered By: Greg Philip on 06-25-2023 Estimated Creatinine Clearance Calc 104.31 ml/min [facility] Estimated GFR (MDRD) Amer 108 mL/min >60 [facility] Comment on above: GFR Calc Estimated GFR (MDRD) Non-Af Amer 89 mL/min >60 [facility] Comment on above: Non- GFR Calc Platelets bldOrdered By: Allyn Philip on 06-25-2023 Platelets (Bld) [#/Vol] 180 10*3/uL 150-450 [facility] Serum or plasma albumin milli urement (mass/volume)Ordered By: Greg Philip on 06-25-2023 Albumin [Mass/Vol] 3.7 g/dL 3.2-5.0 [facility] Serum or plasma albumin/glob ulin mass ratioOrdered By: Greg Philip on 06-25-2023 Albumin/Globulin [Mass ratio] 1.2 {ratio} 0.9-2.4 [facility] Serum or plasma calcium milli urement (mass/volume)Ordered By: Greg Philip on 06-25-2023 Calcium [Mass/Vol] 9.1 mg/dL 8.5-10.1 [facility] Serum or plasma creatinine m easurement (mass/volume)Ordered By: Greg Philip on 06-25-2023 Creatinine [Mass/Vol] 0.81 mg/dL 0.55-1.02 [facility] Comment on above: The validity of the calculated GFR & GFRAA in patients over 70 years has not been determined. Clinical correlation is essential. Serum or plasma urea nitroge n measurement (mass/volume)Ordered By: Greg Philip on 06-25-2023 Urea nitrogen [Mass/Vol] 14 mg/dL 7-18 [facility] Thin prep Papanicolaou smear with manual screeningOrdered By: Greg Philip on 06-25-2023 Thin prep Papanicolaou smear with manual screening 39 U/L 15-37 [facility] Thin prep Papanicolaou smear with manual screening 9 5-15 [facility] HEMOGLOBIN A1C (POC)on 05-31 HbA1c (Bld) [Mass fraction] 7.2 % Abnormal 4.2 - 5.6 % [facility] CNPNon 05-23-2023 CNPN Telephone (FAMPOR) KATHLEEN VILLA ([id number]) 1995 F T Date Time Provider Department 05/23/23 VIVI SMITH FAMPOR During your visit today, we recorded [...] 04/16/2014 [Z34.90] 11/22/2013 04/16/2014 Diabetes mellitus in ([facility]) [O24.919] 12/25/2013 04/16/2014 Diabetic ketoacidosis without coma associated w*01/08/2014 02/04/2023 Aortic root aneurysm ([facility]) [I71.21] 01/08/2014 DVT prophylaxis [Z79.899] 02/25/2014 04/16/2014 [...] Encounter Status:Closed by EUNICE MCDONALD on 05/23/23 [facility] Basophil percentageOrdered B y: Lin Johansen on 05-03-2023 Chloride [Moles/Vol] 111 mmol/L 98-107 [facility] Glucose [Mass/Vol] 230 mg/dL 74-106 [facility] Comment on above: Glucose result great er than or equal to 200 mg/dLsuggests DIABETES MELLITUS per A.D.A. criteria. Potassium [Moles/Vol] 3.7 mmol/L 3.5-5.1 [facility] Sodium [Moles/Vol] 142 mmol/L 136-145 [facility] Beta hCG serum qualOrdered B y: Marc Carl on 05-03-2023 Beta HCG ( test) Ql Negative [facility] Laboratory - Chemistry and C hemistry - challengeOrdered By: Lin Johansen on 05-03-2023 CO2 [Moles/Vol] 22.0 mmol/L 21.0-32.0 [facility] Urea nitrogen/Creatinine [Mass ratio] 12.8 mg/mg 10-20 [facility] No Panel InformationOrdered By: Lin Johansen on 05-03-2023 Estimated Creatinine Clearance Calc 141.18 ml/min [facility] Estimated GFR (MDRD) Amer 145 mL/min >60 [facility] Comment on above: GFR Calc Estimated GFR (MDRD) Non-Af Amer 120 mL/min >60 [facility] Comment on above: Non- GFR Calc Serum or plasma acetone milli urement (mass/volume)Ordered By: Marc Carl on 05-03-2023 Acetone [Mass/Vol] MODERATE NEG [facility] Serum or plasma calcium milli urement (mass/volume)Ordered By: Lin Johansen on 05-03-2023 Calcium [Mass/Vol] 7.7 mg/dL 8.5-10.1 [facility] Serum or plasma creatinine m easurement (mass/volume)Ordered By: Lin Johansen on 05-03-2023 Creatinine [Mass/Vol] 0.62 mg/dL 0.55-1.02 [facility] Comment on above: The validity of the calculated GFR & GFRAA in patients over 70 years has not been determined. Clinical correlation is essential. Serum or plasma urea nitroge n measurement (mass/volume)Ordered By: Lin Johansen on 05-03-2023 Urea nitrogen [Mass/Vol] 8 mg/dL 7-18 [facility] Thin prep Papanicolaou smear with manual screeningOrdered By: Lin Johansen on 05-03-2023 Thin prep Papanicolaou smear with manual screening 9 5-15 [facility] Absolute lymphocyte countOrd ered By: Ileana Lobo on 04-29-2023 Lymphocytes Auto (Unsp spec) [#/Vol] 2.07 10*3/uL 0.83-4.51 [facility] Basophil percentageOrdered B y: Ileana Lobo on 04-29-2023 Basophils/100 WBC (Bld) 0.3 % 0-1 [facility] Chloride [Moles/Vol] 108 mmol/L 98-107 [facility] Eosinophils/100 WBC (Bld) 0.0 % 0-5 [facility] Glucose [Mass/Vol] 258 mg/dL 74-106 [facility] Comment on above: Glucose result great er than or equal to 200 mg/dLsuggests DIABETES MELLITUS per A.D.A. criteria. Neutrophils (Bld) [#/Vol] 11.5 10*3/uL 2.0-7.7 [facility] Neutrophils/100 WBC (Bld) 79.4 % 47-70 [facility] Potassium [Moles/Vol] 4.5 mmol/L 3.5-5.1 [facility] Sodium [Moles/Vol] 136 mmol/L 136-145 [facility] WBC (Bld) [#/Vol] 14.4 10*3/uL 4.4-11.0 [facility] Blood erythrocytes count (nu mber/volume)Ordered By: Ileana Lobo on 04-29-2023 RBC (Bld) [#/Vol] 3.86 10*6/uL 4.2-5.4 [facility] Blood hemoglobin measurement (mass/volume)Ordered By: lIeana Lobo on 04-29-2023 Hemoglobin (Bld) [Mass/Vol] 11.5 g/dL 12.0-15.0 [facility] Blood lymphocytes/100 leukoc ytesOrdered By: Ileana Lobo on 04-29-2023 Lymphocytes/100 WBC (Bld) 14.3 % 19-41 [facility] Blood monocytes/100 leukocyt esOrdered By: Ileana Lobo on 04-29-2023 Monocytes/100 WBC (Bld) 4.9 % 0-10 [facility] Blood platelet mean volumeOr dered By: Ileana Lobo on 04-29-2023 Platelet mean volume (Bld) [Entitic vol] 11.6 fL 6.2-12.0 [facility] Determination of erythrocyte mean corpuscular volume (MCV)Ordered By: Ileana Lobo on 04-29-2023 MCV (RBC) [Entitic vol] 91.2 fL 81-99 [facility] Glucose Glucometer (BldC) [M ass/Vol]Ordered By: Ileana Lobo on 04-29-2023 Glucose [Mass/Vol] 210 mg/dL 74-106 [facility] Comment on above: MANAGEMENT OF PATIEN T CARE PER NURSING PROTOCOL Hematocrit Auto (Bld) [Volum e fraction]Ordered By: Ileana Lobo on 04-29-2023 Hematocrit (Bld) [Volume fraction] 35.2 % 37-47 [facility] - Chemistry and C hemistry - challengeOrdered By: Ileana Lobo on 04-29-2023 CO2 [Moles/Vol] 19.0 mmol/L 21.0-32.0 [facility] Urea nitrogen/Creatinine [Mass ratio] 11.6 mg/mg 10-20 [facility] - Hematology and Cell countsOrdered By: Ileana Lobo on 04-29-2023 Erythrocyte distribution width (RBC) [Entitic vol] 47.9 fL 35.1-43.9 [facility] Erythrocyte distribution width (RBC) [Ratio] 14.3 % 11.6-14.6 [facility] Immature granulocytes/100 WBC (Bld) 1.100 % 0.0-0.9 [facility] Comment on above: IG% - Immature Granu locytes (promyelocytes, myelocytes and metamyelocytes) > 1% indicates that a LEFT SHIFT is Present. MCH (RBC) [Entitic mass] 29.8 pg 27.0-32.0 [facility] Nucleated RBC/100 WBC (Bld) [Ratio] 0 % 0-5 [facility] MCHC Auto (RBC) [Mass/Vol]Or dered By: Ileana Lobo on 04-29-2023 MCHC (RBC) [Mass/Vol] 32.7 g/dL 32-36 [facility] No Panel InformationOrdered By: Ileana Lobo on 04-29-2023 Estimated Creatinine Clearance Calc 112.22 ml/min [facility] Estimated GFR (MDRD) Amer 113 mL/min >60 [facility] Comment on above: GFR Calc Estimated GFR (MDRD) Non-Af Amer 93 mL/min >60 [facility] Comment on above: Non- GFR Calc Platelets bldOrdered By: Jes Lobo on 04-29-2023 Platelets (Bld) [#/Vol] 143 10*3/uL 150-450 [facility] Serum or plasma calcium milli urement (mass/volume)Ordered By: Ileana Lobo on 04-29-2023 Calcium [Mass/Vol] 8.0 mg/dL 8.5-10.1 [facility] Serum or plasma creatinine m easurement (mass/volume)Ordered By: Ileana Lobo on 04-29-2023 Creatinine [Mass/Vol] 0.78 mg/dL 0.55-1.02 [facility] Comment on above: The validity of the calculated GFR & GFRAA in patients over 70 years has not been determined. Clinical correlation is essential. Serum or plasma urea nitroge n measurement (mass/volume)Ordered By: Ileana Lobo on 04-29-2023 Urea nitrogen [Mass/Vol] 9 mg/dL 7-18 [facility] Thin prep Papanicolaou smear with manual screeningOrdered By: Ileana Lobo on 04-29-2023 Thin prep Papanicolaou smear with manual screening 9 5-15 [facility] Assessment of wrist artery p atency prior to arterial punctureOrdered By: David Smith on 04-28-2023 Arterial patency Wrist artery --pre arterial puncture Positive [facility] Base excessOrdered By: Demond Smith on 04-28-2023 Base excess Calc (BldV) [Moles/Vol] -6 mmol/L -2-2 [facility] Basophil percentageOrdered B y: Ileana Lobo on 04-28-2023 Basophil percentage 0-5 SEEN /hpf 0-5 [facility] Basophil percentageOrdered B y: aDvid Smith on 04-28-2023 Basophil percentage 18.2 mmol/L 22-26 [facility] Basophils/100 WBC (Bld) 99 % 95-99 [facility] Bilirubin Test strip Ql (U)O rdered By: Ileana Lobo on 04-28-2023 Bilirubin Ql (U) Negative Negative [facility] CO2 (BldA) [Partial pressure ]Ordered By: David Smith on 04-28-2023 CO2 (Bld) [Partial pressure] 26.7 mm[Hg] 35-45 [facility] Culture, urineOrdered By: Jocelyne Lobo on 04-28-2023 Bacteria identified Cx Nom (U) Positive [facility] Bacteria identified Cx Nom (U) Positive [facility] Ketones Test strip Ql (U)Ord ered By: Ileana Lobo on 04-28-2023 Ketones Ql (U) 150 mg/dl Negative [facility] Comment on above: CRITICAL VALUE *HCRI TICAL VALUE VERIFIED. CALLED TO [id number]/01/23 Feliciano Felix.RESULTS READ BACK BY SAME . Laboratory - Chemistry and C hemistry - challengeOrdered By: Ileana Lobo on 04-28-2023 Magnesium [Mass/Vol] 2.1 mg/dL 1.6-2.6 [facility] Laboratory - Drug toxicology Ordered By: Ileana Lobo on 04-28-2023 Amphetamines Ql (U) Negative <1000 ng/mL [facility] Benzodiazepines Ql (U) Negative < 200 ng/mL [facility] Cannabinoids Screen Ql (U) Positive < 50 ng/mL [facility] Cocaine Ql (U) Negative < 300 ng/mL [facility] Opiates Ql (U) Negative < 300 ng/mL [facility] Mucus LM Ql (Urine sed)Order ed By: Ileana Lobo on 04-28-2023 Mucus Ql (Urine sed) 0 SEEN /hpf [facility] Nitrite Test strip Ql (U)Ord ered By: Ileana Lobo on 04-28-2023 Nitrite Ql (U) Negative Negative [facility] No Panel InformationOrdered By: Ileana Lobo on 04-28-2023 MDMA (Ecstasy) Screen Negative < 500 ng/mL [facility] Urine Barbiturates Screen Negative < 200 ng/mL [facility] Urine Drug Screen Comment [facility] Comment on above: CONFIRMATORY TESTING FOR ALL [...] Methadone Screen Negative < 300 ng/mL [facility] No Panel InformationOrdered By: David Smith on 04-28-2023 Blood Gas Sample Site R Radial [facility] Blood Gas Specimen Type ART [facility] Blood Gas Total CO2 19 mmol/L [facility] Oxygen (BldA) [Partial press ure]Ordered By: David Smith on 04-28-2023 Oxygen (Bld) [Partial pressure] 107 mmHG 75-100 [facility] Protein Test strip Ql (U)Ord ered By: Ileana Lobo on 04-28-2023 Protein Ql (U) Negative Negative [facility] Serum or plasma acetone milli urement (mass/volume)Ordered By: Vincenzo Castañeda on 04-28-2023 Acetone [Mass/Vol] SMALL NEG [facility] Serum procalcitonin measurem entOrdered By: Ileana Lobo on 04-28-2023 Procalcitonin [Mass/Vol] 0.08 ng/mL 0.00-0.09 [facility] Comment on above: A procalcitonin (PCT ) [...] Ql (Urine sed) 0 SEEN /hpf 5-10 [facility] Urine blood detectionOrdered By: Ileana Lobo on 04-28-2023 RBC Ql (U) Negative Negative [facility] RBC Ql (U) 0 SEEN /hpf 0-5 [facility] Urine clarityOrdered By: Jes Lobo on 04-28-2023 Clarity (U) Clear Clear [facility] Urine color determinationOrd ered By: Ileana Lobo on 04-28-2023 Color (U) Straw Yellow [facility] Urine glucose detectionOrder ed By: Ileana Lobo on 04-28-2023 Glucose Ql (U) 100 mg/dl Normal [facility] Urine leukocyte esterase det ection by dipstickOrdered By: Ileana Lobo on 04-28-2023 Leukocyte esterase Test strip Ql (U) 25 /ul Negative [facility] Urine pHOrdered By: Ileana mayorga on 04-28-2023 pH (U) 5.0 [pH] 5.0 - 8.0 [facility] Urine phencyclidine (PCP) de tectionOrdered By: Ileana Lobo on 04-28-2023 Phencyclidine Ql (U) Negative < 25 ng/mL [facility] Urine sediment bacteria coun t by microscopy (number/high power field)Ordered By: Ileana Lobo on 04-28-2023 Bacteria LM.HPF (Urine sed) [#/Area] 0 /[HPF] None Seen [facility] Urine specific gravity measu rementOrdered By: Ileana Lobo on 04-28-2023 Specific gravity (U) [Rel density] 1.010 1.002-1.030 [facility] Urobilinogen Auto test strip Ql (U)Ordered By: Ileana Lobo on 04-28-2023 Urobilinogen Ql (U) Normal mg/dl Normal [facility] pH measurementOrdered By: Gloria Smith on 04-28-2023 pH (Unsp spec) 7.44 [pH] 7.35-7.45 [facility] Absolute lymphocyte countOrd ered By: Lin Johansen on 04-27-2023 Lymphocytes Auto (Unsp spec) [#/Vol] 0.67 10*3/uL 0.83-4.51 [facility] Basophil percentageOrdered B y: Lin Johansen on 04-27-2023 Basophils/100 WBC (Bld) 0.2 % 0-1 [facility] Bilirubin [Mass/Vol] 1.00 mg/dL 0.20-1.00 [facility] Comment on above: For patients on eltr ombopag therapy, use of [employer]ension [place] TBIL is not recommended. Chloride [Moles/Vol] 102 mmol/L 98-107 [facility] Eosinophils/100 WBC (Bld) 0.0 % 0-5 [facility] Glucose [Mass/Vol] 313 mg/dL 74-106 [facility] Comment on above: Glucose result great er than or equal to 200 mg/dLsuggests DIABETES MELLITUS per A.D.A. criteria. Neutrophils (Bld) [#/Vol] 19.6 10*3/uL 2.0-7.7 [facility] Neutrophils/100 WBC (Bld) 93.9 % 47-70 [facility] Potassium [Moles/Vol] 5.1 mmol/L 3.5-5.1 [facility] Protein [Mass/Vol] 7.5 g/dL 6.4-8.2 [facility] Sodium [Moles/Vol] 130 mmol/L 136-145 [facility] WBC (Bld) [#/Vol] 20.9 10*3/uL 4.4-11.0 [facility] Blood erythrocytes count (nu mber/volume)Ordered By: Lin Johansen on 04-27-2023 RBC (Bld) [#/Vol] 4.65 10*6/uL 4.2-5.4 [facility] Blood hemoglobin measurement (mass/volume)Ordered By: Lin Johansen on 04-27-2023 Hemoglobin (Bld) [Mass/Vol] 13.5 g/dL 12.0-15.0 [facility] Blood lymphocytes/100 leukoc ytesOrdered By: Lin Johansen on 04-27-2023 Lymphocytes/100 WBC (Bld) 3.2 % 19-41 [facility] Blood monocytes/100 leukocyt esOrdered By: Lin Johansen on 04-27-2023 Monocytes/100 WBC (Bld) 0.9 % 0-10 [facility] Blood platelet mean volumeOr dered By: Lin Johansen on 04-27-2023 Platelet mean volume (Bld) [Entitic vol] 12.5 fL 6.2-12.0 [facility] Determination of erythrocyte mean corpuscular volume (MCV)Ordered By: Lin Johansen on 04-27-2023 MCV (RBC) [Entitic vol] 90.3 fL 81-99 [facility] Direct bilirubinOrdered By: Lin Johansen on 04-27-2023 Bilirubin.direct [Mass/Vol] 0.30 mg/dL 0.00-0.30 [facility] Glucose Glucometer (BldC) [M ass/Vol]Ordered By: Lin Johansen on 04-27-2023 Glucose [Mass/Vol] 206 mg/dL 74-106 [facility] Comment on above: MANAGEMENT OF PATIEN T CARE PER NURSING PROTOCOL Hematocrit Auto (Bld) [Volum e fraction]Ordered By: Lin Johansen on 04-27-2023 Hematocrit (Bld) [Volume fraction] 42.0 % 37-47 [facility] Laboratory - Chemistry and C hemistry - challengeOrdered By: Lin Johansen on 04-27-2023 ALP [Catalytic activity/Vol] 85 U/L 45-117 [facility] ALT [Catalytic activity/Vol] 22 U/L 13-56 [facility] CO2 [Moles/Vol] 13.0 mmol/L 21.0-32.0 [facility] Globulin (S) [Mass/Vol] 3.5 g/dL 2.2-4.2 [facility] Lipase [Catalytic activity/Vol] 10 U/L 13-75 [facility] Comment on above: Please note:LIPASE r evised reference range effective 22. New Lipase methodology. Expected to produce lower values than the previous assay method. NEW Reference Range: 13 - 75 U/L Urea nitrogen/Creatinine [Mass ratio] 13.9 mg/mg 10-20 [facility] - Hematology and Cell countsOrdered By: Lin Johansen on 04-27-2023 Erythrocyte distribution width (RBC) [Entitic vol] 46.5 fL 35.1-43.9 [facility] Erythrocyte distribution width (RBC) [Ratio] 14.2 % 11.6-14.6 [facility] Immature granulocytes/100 WBC (Bld) 1.800 % 0.0-0.9 [facility] Comment on above: IG% - Immature Granu locytes (promyelocytes, myelocytes and metamyelocytes) > 1% indicates that a LEFT SHIFT is Present. MCH (RBC) [Entitic mass] 29.0 pg 27.0-32.0 [facility] Nucleated RBC/100 WBC (Bld) [Ratio] 0 % 0-5 [facility] MCHC Auto (RBC) [Mass/Vol]Or dered By: Lin Johansen on 04-27-2023 MCHC (RBC) [Mass/Vol] 32.1 g/dL 32-36 [facility] No Panel InformationOrdered By: Lin Johansen on 04-27-2023 Estimated Creatinine Clearance Calc 78.23 ml/min [facility] Estimated GFR (MDRD) Amer 77 mL/min >60 [facility] Comment on above: GFR Calc Estimated GFR (MDRD) Non-Af Amer 64 mL/min >60 [facility] Comment on above: Non- GFR Calc Platelets bldOrdered By: Vicenta Johansen on 04-27-2023 Platelets (Bld) [#/Vol] 158 10*3/uL 150-450 [facility] Serum or plasma albumin milli urement (mass/volume)Ordered By: Lin Johansen on 04-27-2023 Albumin [Mass/Vol] 4.0 g/dL 3.2-5.0 [facility] Serum or plasma calcium milli urement (mass/volume)Ordered By: Lin Johansen on 04-27-2023 Calcium [Mass/Vol] 9.4 mg/dL 8.5-10.1 [facility] Serum or plasma creatinine m easurement (mass/volume)Ordered By: Lin Johansen on 04-27-2023 Creatinine [Mass/Vol] 1.08 mg/dL 0.55-1.02 [facility] Comment on above: The validity of the calculated GFR & GFRAA in patients over 70 years has not been determined. Clinical correlation is essential. Serum or plasma urea nitroge n measurement (mass/volume)Ordered By: Lin Johansen on 04-27-2023 Urea nitrogen [Mass/Vol] 15 mg/dL 7-18 [facility] Thin prep Papanicolaou smear with manual screeningOrdered By: Lin Johansen on 04-27-2023 Thin prep Papanicolaou smear with manual screening 10 U/L 15-37 [facility] Thin prep Papanicolaou smear with manual screening 15 5-15 [facility] Absolute lymphocyte countOrd ered By: Loki Soria on 04-26-2023 Lymphocytes Auto (Unsp spec) [#/Vol] 1.87 10*3/uL 0.83-4.51 [facility] Basophil percentageOrdered B y: Loki Soria on 04-26-2023 Basophils/100 WBC (Bld) 0.3 % 0-1 [facility] Chloride [Moles/Vol] 106 mmol/L 98-107 [facility] Eosinophils/100 WBC (Bld) 0.4 % 0-5 [facility] Glucose [Mass/Vol] 108 mg/dL 74-106 [facility] Comment on above: Fasting Glucose resu lt from 100 to 125 mg/dL suggests IMPAIRED HOMEOSTASIS per A.D.A. criteria. Neutrophils (Bld) [#/Vol] 10.8 10*3/uL 2.0-7.7 [facility] Neutrophils/100 WBC (Bld) 78.6 % 47-70 [facility] Potassium [Moles/Vol] 3.9 mmol/L 3.5-5.1 [facility] Sodium [Moles/Vol] 135 mmol/L 136-145 [facility] WBC (Bld) [#/Vol] 13.8 10*3/uL 4.4-11.0 [facility] Blood erythrocytes count (nu mber/volume)Ordered By: Loki Soria on 04-26-2023 RBC (Bld) [#/Vol] 4.80 10*6/uL 4.2-5.4 [facility] Blood hemoglobin measurement (mass/volume)Ordered By: Loki Soria on 04-26-2023 Hemoglobin (Bld) [Mass/Vol] 14.1 g/dL 12.0-15.0 [facility] Blood lymphocytes/100 leukoc ytesOrdered By: Loki Soria on 04-26-2023 Lymphocytes/100 WBC (Bld) 13.6 % 19-41 [facility] Blood monocytes/100 leukocyt esOrdered By: Loki Soria on 04-26-2023 Monocytes/100 WBC (Bld) 6.2 % 0-10 [facility] Blood platelet mean volumeOr dered By: Loki Soria on 04-26-2023 Platelet mean volume (Bld) [Entitic vol] 11.5 fL 6.2-12.0 [facility] Determination of erythrocyte mean corpuscular volume (MCV)Ordered By: Loki Soria on 04-26-2023 MCV (RBC) [Entitic vol] 88.8 fL 81-99 [facility] Hematocrit Auto (Bld) [Volum e fraction]Ordered By: Loki Soria on 04-26-2023 Hematocrit (Bld) [Volume fraction] 42.6 % 37-47 [facility] Laboratory - Chemistry and C hemistry - challengeOrdered By: Loki Soria on 04-26-2023 CO2 [Moles/Vol] 20.0 mmol/L 21.0-32.0 [facility] Urea nitrogen/Creatinine [Mass ratio] 10.5 mg/mg 10-20 [facility] Laboratory - Hematology and Cell countsOrdered By: Loki Soria on 04-26-2023 Erythrocyte distribution width (RBC) [Entitic vol] 45.3 fL 35.1-43.9 [facility] Erythrocyte distribution width (RBC) [Ratio] 13.9 % 11.6-14.6 [facility] Immature granulocytes/100 WBC (Bld) 0.900 % 0.0-0.9 [facility] Comment on above: IG% - Immature Granu locytes (promyelocytes, myelocytes and metamyelocytes) > 1% indicates that a LEFT SHIFT is Present. MCH (RBC) [Entitic mass] 29.4 pg 27.0-32.0 [facility] Nucleated RBC/100 WBC (Bld) [Ratio] 0 % 0-5 [facility] MCHC Auto (RBC) [Mass/Vol]Or dered By: Loki Soria on 04-26-2023 MCHC (RBC) [Mass/Vol] 33.1 g/dL 32-36 [facility] No Panel InformationOrdered By: Loki Soria on 04-26-2023 Estimated Creatinine Clearance Calc 91.18 ml/min [facility] Estimated GFR (MDRD) Amer 89 mL/min >60 [facility] Comment on above: GFR Calc Estimated GFR (MDRD) Non-Af Amer 74 mL/min >60 [facility] Comment on above: Non- GFR Calc Thyroid Stimulating Hormone (TSH) 3.85 uIU/mL 0.358-3.74 [facility] Troponin I High Sensitivity 4 pg/mL 3.0-54.0 [facility] Comment on above: Please Note: New Ivone t Units and Gender Specific Reference Ranges. For more information see Policy Stat Procedure [place] High Sensitivity Troponin (TNIH) and attachments. Platelets bldOrdered By: Ashley Soria on 04-26-2023 Platelets (Bld) [#/Vol] 158 10*3/uL 150-450 [facility] Serum or plasma calcium milli urement (mass/volume)Ordered By: Loki Soria on 04-26-2023 Calcium [Mass/Vol] 9.2 mg/dL 8.5-10.1 [facility] Serum or plasma creatinine m easurement (mass/volume)Ordered By: [facility] on 04-26-2023 Creatinine [Mass/Vol] 0.96 mg/dL 0.55-1.02 [facility] Comment on above: The validity of the calculated GFR & GFRAA in patients over 70 years has not been determined. Clinical correlation is essential. Serum or plasma urea nitroge n measurement (mass/volume)Ordered By: Glen Flora Yang on 04-26-2023 Urea nitrogen [Mass/Vol] 10 mg/dL 7-18 [facility] Thin prep Papanicolaou smear with manual screeningOrdered By: [facility]23 Thin prep Papanicolaou smear with manual screening 9 5-15 [facility] Absolute lymphocyte countOrd ered By: Greg Philip on 04-23-2023 Lymphocytes Auto (Unsp spec) [#/Vol] 1.93 10*3/uL 0.83-4.51 [facility] Basophil percentageOrdered B y: Greg Philip on 04-23-2023 Basophil percentage 5-10 SEEN /hpf 0-5 [facility] Basophils/100 WBC (Bld) 0.3 % 0-1 [facility] Bilirubin [Mass/Vol] 0.30 mg/dL 0.20-1.00 [facility] Comment on above: For patients on eltr ombopag therapy, use of Dimension [place] TBIL is not recommended. Chloride [Moles/Vol] 114 mmol/L 98-107 [facility] Eosinophils/100 WBC (Bld) 0.6 % 0-5 [facility] Glucose [Mass/Vol] 60 mg/dL 74-106 [facility] Neutrophils (Bld) [#/Vol] 10.3 10*3/uL 2.0-7.7 [facility] Neutrophils/100 WBC (Bld) 77.2 % 47-70 [facility] Potassium [Moles/Vol] 3.3 mmol/L 3.5-5.1 [facility] Protein [Mass/Vol] 6.3 g/dL 6.4-8.2 [facility] Sodium [Moles/Vol] 143 mmol/L 136-145 [facility] WBC (Bld) [#/Vol] 13.4 10*3/uL 4.4-11.0 [facility] Beta hCG serum qualOrdered B y: Greg Philip on 04-23-2023 Beta HCG ( test) Ql Negative [facility] Bilirubin Test strip Ql (U)O rdered By: Greg Philip on 04-23-2023 Bilirubin Ql (U) Negative Negative [facility] Blood erythrocytes count (nu mber/volume)Ordered By: Greg Philip on 04-23-2023 RBC (Bld) [#/Vol] 4.34 10*6/uL 4.2-5.4 [facility] Blood hemoglobin measurement (mass/volume)Ordered By: Greg Philip on 04-23-2023 Hemoglobin (Bld) [Mass/Vol] 13.0 g/dL 12.0-15.0 [facility] Blood lymphocytes/100 leukoc ytesOrdered By: Greg Philip on 04-23-2023 Lymphocytes/100 WBC (Bld) 14.5 % 19-41 [facility] Blood monocytes/100 leukocyt esOrdered By: Greg Philip on 04-23-2023 Monocytes/100 WBC (Bld) 6.7 % 0-10 [facility] Blood platelet mean volumeOr dered By: Greg hPilip on 04-23-2023 Platelet mean volume (Bld) [Entitic vol] 12.7 fL 6.2-12.0 [facility] Determination of erythrocyte mean corpuscular volume (MCV)Ordered By: Greg Philip on 04-23-2023 MCV (RBC) [Entitic vol] 91.7 fL 81-99 [facility] Glucose Glucometer (dC) [M ass/Vol]Ordered By: Greg Philip on 04-23-2023 Glucose [Mass/Vol] 108 mg/dL 74-106 [facility] Comment on above: MANAGEMENT OF PATIEN T CARE PER NURSING PROTOCOL Hematocrit Auto (Bld) [Volum e fraction]Ordered By: Greg Philip on 04-23-2023 Hematocrit (Bld) [Volume fraction] 39.8 % 37-47 [facility] INR in Blood by Coagulation assayOrdered By: Greg Philip on 04-23-2023 INR Coag (Bld) [Relative time] 1.1 {INR} [facility] Ketones Test strip Ql (U)Ord ered By: Greg Philip on 04-23-2023 Ketones Ql (U) Negative Negative [facility] Laboratory - Chemistry and C hemistry - challengeOrdered By: Greg Philip on 04-23-2023 ALP [Catalytic activity/Vol] 66 U/L 45-117 [facility] ALT [Catalytic activity/Vol] 31 U/L 13-56 [facility] CO2 [Moles/Vol] 25.0 mmol/L 21.0-32.0 [facility] Globulin (S) [Mass/Vol] 2.9 g/dL 2.2-4.2 [facility] Lipase [Catalytic activity/Vol] 19 U/L 13-75 [facility] Comment on above: Please note:LIPASE r evised reference range effective 22. New Lipase methodology. Expected to produce lower values than the previous assay method. NEW Reference Range: 13 - 75 U/L Urea nitrogen/Creatinine [Mass ratio] 23.1 mg/mg 10-20 [facility] Laboratory - CoagulationOrde red By: Greg Philip on 04-23-2023 aPTT Coag (Bld) [Time] 34.5 s 24.1-36.2 [facility] PT Coag (PPP) [Time] 14.4 s 11.7-14.9 [facility] Laboratory - Hematology and Cell countsOrdered By: Greg Philip on 04-23-2023 Erythrocyte distribution width (RBC) [Entitic vol] 47.8 fL 35.1-43.9 [facility] Erythrocyte distribution width (RBC) [Ratio] 14.1 % 11.6-14.6 [facility] Immature granulocytes/100 WBC (Bld) 0.700 % 0.0-0.9 [facility] Comment on above: IG% - Immature Granu locytes (promyelocytes, myelocytes and metamyelocytes) > 1% indicates that a LEFT SHIFT is Present. MCH (RBC) [Entitic mass] 30.0 pg 27.0-32.0 [facility] Nucleated RBC/100 WBC (Bld) [Ratio] 0 % 0-5 [facility] MCHC Auto (RBC) [Mass/Vol]Or dered By: Greg Philip on 04-23-2023 MCHC (RBC) [Mass/Vol] 32.7 g/dL 32-36 [facility] Mucus LM Ql (Urine sed)Order ed By: Greg Philip on 04-23-2023 Mucus Ql (Urine sed) 0 SEEN /hpf [facility] Nitrite Test strip Ql (U)Ord ered By: Greg Philip on 04-23-2023 Nitrite Ql (U) Negative Negative [facility] No Panel InformationOrdered By: Greg Philip on 04-23-2023 Estimated Creatinine Clearance Calc 156.31 ml/min [facility] Estimated GFR (MDRD) Amer 164 mL/min >60 [facility] Comment on above: GFR Calc Estimated GFR (MDRD) Non-Af Amer 135 mL/min >60 [facility] Comment on above: Non- GFR Calc Troponin I High Sensitivity 6 pg/mL 3.0-54.0 [facility] Comment on above: Please Note: New Ivone t Units and Gender Specific Reference Ranges. For more information see Policy Stat Procedure [place] High Sensitivity Troponin (TNIH) and attachments. Platelets bldOrdered By: Allyn Philip on 04-23-2023 Platelets (Bld) [#/Vol] 149 10*3/uL 150-450 [facility] Protein Test strip Ql (U)Ord ered By: Greg Philip on 04-23-2023 Protein Ql (U) Negative Negative [facility] Serum or plasma acetone milli urement (mass/volume)Ordered By: Greg Philip on 04-23-2023 Acetone [Mass/Vol] Negative NEG [facility] Serum or plasma albumin milli urement (mass/volume)Ordered By: rGeg Philip on 04-23-2023 Albumin [Mass/Vol] 3.4 g/dL 3.2-5.0 [facility] Serum or plasma albumin/glob ulin mass ratioOrdered By: Greg Philip on 04-23-2023 Albumin/Globulin [Mass ratio] 1.2 {ratio} 0.9-2.4 [facility] Serum or plasma calcium milli urement (mass/volume)Ordered By: Greg Philip on 04-23-2023 Calcium [Mass/Vol] 8.6 mg/dL 8.5-10.1 [facility] Serum or plasma creatinine m easurement (mass/volume)Ordered By: Greg Philip on 04-23-2023 Creatinine [Mass/Vol] 0.56 mg/dL 0.55-1.02 [facility] Comment on above: The validity of the calculated GFR & GFRAA in patients over 70 years has not been determined. Clinical correlation is essential. Serum or plasma urea nitroge n measurement (mass/volume)Ordered By: Greg Philip on 04-23-2023 Urea nitrogen [Mass/Vol] 13 mg/dL 7-18 [facility] Squamous epithelial cells de tection in urine sediment by light microscopyOrdered By: Greg Philip on 04-23-2023 Epithelial cells.squamous LM Ql (Urine sed) 0 SEEN /hpf 5-10 [facility] Thin prep Papanicolaou smear with manual screeningOrdered By: Greg Philip on 04-23-2023 Thin prep Papanicolaou smear with manual screening 13 U/L 15-37 [facility] Thin prep Papanicolaou smear with manual screening 4 5-15 [facility] Urine blood detectionOrdered By: Greg Philip on 04-23-2023 RBC Ql (U) Negative Negative [facility] RBC Ql (U) 0 SEEN /hpf 0-5 [facility] Urine clarityOrdered By: Allyn Philip on 04-23-2023 Clarity (U) Clear Clear [facility] Urine color determinationOrd ered By: Greg Philip on 04-23-2023 Color (U) Yellow Yellow [facility] Urine glucose detectionOrder ed By: Greg Philip on 04-23-2023 Glucose Ql (U) 50 mg/dl Normal [facility] Urine leukocyte esterase det ection by dipstickOrdered By: Greg Philip on 04-23-2023 Leukocyte esterase Test strip Ql (U) 500 /ul Negative [facility] Urine pHOrdered By: Greg sun on 04-23-2023 pH (U) 8.0 [pH] 5.0 - 8.0 [facility] Urine sediment bacteria coun t by microscopy (number/high power field)Ordered By: Greg Philip on 04-23-2023 Bacteria LM.HPF (Urine sed) [#/Area] 1 /[HPF] None Seen [facility] Urine specific gravity measu rementOrdered By: Greg Philip on 04-23-2023 Specific gravity (U) [Rel density] 1.015 1.002-1.030 [facility] Urobilinogen Auto test strip Ql (U)Ordered By: Greg Philip on 04-23-2023 Urobilinogen Ql (U) Normal mg/dl Normal [facility] CBC W Auto Differential pane l (Bld)on 04-06-2023 Basophils (Bld) [#/Vol] 0.05 10*3/uL Normal <0.11 [facility] Comment on above: Order Comment: Speci men Type: BLOOD SPECIMEN Ordering Facility: [facility] Address: [address] [place] [address] Performed By: #### 3 1201-7, 5195-3, 85434-4, SYPH #### [facility] CLIA [id number] [address] [place] [address] [place] Basophils/100 WBC (Bld) 0.4 % Normal [facility] Comment on above: Order Comment: Speci men Type: BLOOD SPECIMEN Ordering Facility: [facility] Address: [address] [place] [address] Performed By: #### 3 1201-7, 5194-3, 98780-3, SYPH #### [facility] CLIA [id number] [address] [place] [address] [place] Differential cell count method Nom (Bld) Auto Normal [facility] Comment on above: Order Comment: Speci men Type: BLOOD SPECIMEN Ordering Facility: [facility] Address: [address] [place] [address] Performed By: #### 3 1201-7, 5195-3, 71618-9, SYPH #### [facility] CLIA [id number] [address] [place] [address] [place] Eosinophils (Bld) [#/Vol] 0.03 10*3/uL Normal <0.46 [facility] Comment on above: Order Comment: Speci men Type: BLOOD SPECIMEN Ordering Facility: [facility] Address: [address] [place] [address] Performed By: #### 3 1201-7, 5195-3, 98902-0, SYPH #### [facility] CLIA [id number] [address] [place] [address] [place] Eosinophils/100 WBC (Bld) 0.2 % Normal [facility] Comment on above: Order Comment: Speci men Type: BLOOD SPECIMEN Ordering Facility: [facility] Address: [address] [place] [address] Performed By: #### 3 1201-7, 5195-3, 47591-4, SYPH #### [facility] CLIA [id number] [address] [place] [address] [place] Erythrocyte distribution width (RBC) [Ratio] 13.9 % Normal 11.5-15.0 [facility] Comment on above: Order Comment: Speci men Type: BLOOD SPECIMEN Ordering Facility: [facility] Address: [address] [place] [address] Performed By: #### 3 1201-7, 5195-3, 05597-3, SYPH #### [facility] CLIA [id number] [address] [place] [address] [place] Hematocrit (Bld) [Volume fraction] 43.8 % Normal 36.0-46.0 [facility] Comment on above: Order Comment: Speci men Type: BLOOD SPECIMEN Ordering Facility: [facility] Address: [address] [place] [address] Performed By: #### 3 1201-7, 5195-3, 09879-0, SYPH #### [facility] CLIA [id number] [address] [place] [address] [place] Hemoglobin (Bld) [Mass/Vol] 14.4 g/dL Normal 11.5-15.5 [facility] Comment on above: Order Comment: Speci men Type: BLOOD SPECIMEN Ordering Facility: [facility] Address: [address] [place] [address] Performed By: #### 3 1201-7, 5195-3, 95699-4, SYPH #### [facility] CLIA [id number] [address] [place] [address] [place] Immature granulocytes (Bld) [#/Vol] 0.11 10*3/uL High <0.10 [facility] Comment on above: Order Comment: Speci men Type: BLOOD SPECIMEN Ordering Facility: [facility] Address: [address] [place] [address] Performed By: #### 3 1201-7, 5195-3, 62896-2, SYPH #### [facility] CLIA [id number] [address] [place] [address] [place] Immature granulocytes/100 WBC (Bld) 0.8 % Normal [facility] Comment on above: Order Comment: Speci men Type: BLOOD SPECIMEN Ordering Facility: [facility] Address: [address] [place] [address] Performed By: #### 3 1201-7, 5195-3, 28636-5, SYPH #### [facility] CLIA [id number] [address] [place] [address] [place] Lymphocytes (Bld) [#/Vol] 2.59 10*3/uL Normal 1.00-4.00 [facility] Comment on above: Order Comment: Speci men Type: BLOOD SPECIMEN Ordering Facility: [facility] Address: [address] [place] [address] Performed By: #### 3 1201-7, 5194-3, 60860-9, SYPH #### [facility] CLIA [id number] [address] [place] [address] [place] Lymphocytes/100 WBC (Bld) 19.8 % Normal [facility] Comment on above: Order Comment: Speci men Type: BLOOD SPECIMEN Ordering Facility: [facility] Address: [address] [place] [address] Performed By: #### 3 1201-7, 5195-3, 34912-1, SYPH #### [facility] CLIA [id number] [address] [place] [address] [place] MCH (RBC) [Entitic mass] 29.1 pg Normal 26.0-34.0 [facility] Comment on above: Order Comment: Speci men Type: BLOOD SPECIMEN Ordering Facility: [facility] Address: [address] [place] [address] Performed By: #### 3 1201-7, 5195-3, 91036-7, SYPH #### [facility] CLIA [id number] [address] [place] [address] [place] MCHC (RBC) [Mass/Vol] 32.9 g/dL Normal 30.5-36.0 [facility] Comment on above: Order Comment: Speci men Type: BLOOD SPECIMEN Ordering Facility: [facility] Address: [address] [place] [address] Performed By: #### 3 1201-7, 5195-3, 67077-2, SYPH #### [facility] CLIA [id number] [address] [place] [address] [place] MCV (RBC) [Entitic vol] 88.5 fL Normal 80.0-100.0 [facility] Comment on above: Order Comment: Speci men Type: BLOOD SPECIMEN Ordering Facility: [facility] Address: [address] [place] [address] Performed By: #### 3 1201-7, 5195-3, 20356-1, SYPH #### [facility] CLIA [id number] [address] [place] [address] [place] Monocytes (Bld) [#/Vol] 0.76 10*3/uL Normal <0.87 [facility] Comment on above: Order Comment: Speci men Type: BLOOD SPECIMEN Ordering Facility: [facility] Address: [address] Performed By: #### 3 1201-7, 5195-3, 11620-8, SYPH #### [facility] CLIA [id number] [address] [place] [address] [place] Monocytes/100 WBC (Bld) 5.8 % Normal [facility] Comment on above: Order Comment: Speci men Type: BLOOD SPECIMEN Ordering Facility: [facility] Address: [address] [place] [address] Performed By: #### 3 1201-7, 5195-3, 25437-9, SYPH #### [facility] CLIA [id number] [address] [place] [address] [place] Neutrophils (Bld) [#/Vol] 9.56 10*3/uL High 1.45-7.50 [facility] Comment on above: Order Comment: Speci men Type: BLOOD SPECIMEN Ordering Facility: [facility] Address: [address] [place] [address] Performed By: #### 3 1201-7, 5195-3, 19078-7, SYPH #### [facility] CLIA [id number] [address] [place] [address] [place] Neutrophils/100 WBC (Bld) 73.0 % Normal [facility] Comment on above: Order Comment: Speci men Type: BLOOD SPECIMEN Ordering Facility: [facility] Address: [address] Performed By: #### 3 1201-7, 5195-3, 26217-0, SYPH #### [facility] CLIA [id number] [address] [place], [place] [address] [place] Nucleated RBC (Bld) [#/Vol] 10*3/uL Normal <0.01 [facility] Comment on above: Order Comment: Speci men Type: BLOOD SPECIMEN Ordering Facility: [facility] Address: [address] [place] [address] Performed By: #### 3 1201-7, 5195-3, 83263-7, SYPH #### [facility] CLIA [id number] [address] [place] [address] [place] Nucleated RBC/100 WBC (Bld) [Ratio] 0.0 /100 WBC Normal [facility] Comment on above: Order Comment: Speci men Type: BLOOD SPECIMEN Ordering Facility: [facility] Address: [address] [place] [address] Performed By: #### 3 1201-7, 5195-3, 62940-1, SYPH #### [facility] CLIA [id number] [address] [place] [address] [place] Platelet mean volume (Bld) [Entitic vol] 12.0 fL Normal 9.0-12.7 [facility] Comment on above: Order Comment: Speci men Type: BLOOD SPECIMEN Ordering Facility: [facility] Address: [address] [place] [address] Performed By: #### 3 1201-7, 5195-3, 47418-0, SYPH #### [facility] CLIA [id number] [address] [place] [address] [place] Platelets (Bld) [#/Vol] 180 10*3/uL Normal 150-400 [facility] Comment on above: Order Comment: Speci men Type: BLOOD SPECIMEN Ordering Facility: [facility] Address: [address] [place] [address] Performed By: #### 3 1201-7, 5-3, 66436-4, SYPH #### [facility] CLIA [id number] [address] [place] [address] [place] RBC (Bld) [#/Vol] 4.95 10*6/uL Normal 3.90-5.20 [facility] Comment on above: Order Comment: Speci men Type: BLOOD SPECIMEN Ordering Facility: [facility] Address: [address] [place] [address] Performed By: #### 3 1201-7, 5195-3, 24862-2, SYPH #### [facility] CLIA [id number] [address] [place] [address] [place] WBC (Bld) [#/Vol] 13.10 10*3/uL High 3.70-11.00 [facility] Comment on above: Order Comment: Speci men Type: BLOOD SPECIMEN Ordering Facility: [facility] Address: [place] [address] Performed By: #### 3 1201-7, 5195-3, 71460-6, [facility] #### [facility] CLIA [id number] [address] [id number] [place] CT ABD/PEL W IVCONon 023 CT ABD/PEL W IVCON * * *Final Report* * * DATE OF EXAM: Apr 06 2023 12:56AM [facility] 0530 - CT ABD/PEL W IVCON [...] Likely right lower quadrant ventral injection sites/granuloma. Organ Pipe Voicer (topogram) images: No additional findings. IMPRESSION: 1. No acute abnormality. Facility Manager Histology: PSCB Transcribe Date/Time: Apr 06 2023 1:25A Dictated by : LIANG SLAUGHTER MD This examination was interpreted and the report reviewed and electronically signed by: LIANG SLAUGHTER MD on Apr 06 2023 1:30AM EST [id number] Normal [facility] Comprehensive metabolic 2000 panelon 04-06-2023 Albumin [Mass/Vol] 4.2 g/dL Normal 3.2-5.0 [facility] Comment on above: Order Comment: Speci jeb Type: BLOOD SPECIMEN Ordering Facility: [facility] Address: [address] [place], [place] [id number] Performed By: #### 3 1201-7, 5195-3, 40091-5, SYPH #### [facility] CLIA [id number] [address] [place] [address] [place] ALP [Catalytic activity/Vol] 85 U/L Normal 45-117 [facility] Comment on above: Order Comment: Speci men Type: BLOOD SPECIMEN Ordering Facility: [facility] Address: [address] [place], [place] [address] Performed By: #### 3 1201-7, 5195-3, 75071-9, SYPH #### [facility] CLIA [id number] [address] [place] [address] [place] ALT [Catalytic activity/Vol] 87 U/L High 13-61 [facility] Comment on above: Order Comment: Jon russ Type: BLOOD SPECIMEN Ordering Facility: [facility] Address: [address] [place], [place] [id number] Result Comment: Resu lts may be falsely depressed after the administration of Sulfasalazine and/or Sulfapyridine. Performed By: #### 3 1201-7, 5195-3, 59618-6, SYPH #### [facility] CLIA [id number] [address] [place] [address] [place] Anion gap [Moles/Vol] 8 mmol/L Normal 5-16 [facility] Comment on above: Order Comment: Speci men Type: BLOOD SPECIMEN Ordering Facility: [facility] Address: [address] [place] [address] Performed By: #### 3 1201-7, 5195-3, 00633-2, SYPH #### [facility] CLIA [id number] [address] [place] [address] [place] AST [Catalytic activity/Vol] 60 U/L High 8-34 [facility] Comment on above: Order Comment: Speci men Type: BLOOD SPECIMEN Ordering Facility: [facility] Address: [address] [place] [address] Result Comment: Resu lts may be falsely depressed after the administration of Sulfasalazine and/or Sulfapyridine. Performed By: #### 3 1201-7, 5195-3, 95232-3, SYPH #### [facility] CLIA [id number] [address] [place] [address] [place] Bilirubin [Mass/Vol] 0.7 mg/dL Normal 0.2-1.0 [facility] Comment on above: Order Comment: Speci men Type: BLOOD SPECIMEN Ordering Facility: [facility] Address: [address] [place] [address] Performed By: #### 3 1201-7, 5195-3, 67483-1, SYPH #### [facility] CLIA [id number] [address] [place] [address] [place] Calcium [Mass/Vol] 9.6 mg/dL Normal 8.5-10.5 [facility] Comment on above: Order Comment: Speci men Type: BLOOD SPECIMEN [facility]ing Facility: [facility] [facility] Address: [address] [place] [address] Performed By: #### 3 1201-7, 5195-3, 72366-2, SYPH #### [facility] CLIA [id number] [address] [place] [address] [place] Chloride [Moles/Vol] 107 mmol/L Normal 98-107 [facility] Comment on above: Order Comment: Speci men Type: BLOOD SPECIMEN Ordering Facility: [facility] Address: [address] Performed By: #### 3 1201-7, 5195-3, 19022-3, SYPH #### [facility] CLIA [id number] [address] [place] [address] [place] CO2 [Moles/Vol] 26 mmol/L Normal 21-32 [facility] Comment on above: Order Comment: Speci men Type: BLOOD SPECIMEN Ordering Facility: [facility] Address: [address] [address] Performed By: #### 3 1201-7, 5195-3, 81412-2, SYPH #### [facility] CLIA [id number] [address] [place] [address] [place] Creatinine [Mass/Vol] 0.69 mg/dL Normal 0.51-0.95 [facility] Comment on above: Order Comment: Speci men Type: BLOOD SPECIMEN Ordering Facility: [facility] Address: [address] [place] [address] Result Comment: Cleopatra ents receiving either N-Acetylcysteine (NAC) or Metamizole prior to venipuncture, may have falsely depressed results. Performed By: #### 3 1201-7, 5195-3, 84636-0, SYPH #### [facility] CLIA [id number] [address] [place] [address] OF [facility] ESTIMATED GLOMERULAR FILTRATION RATE 121 mL/min/1.73m??? Normal >=60 [facility] Comment on above: Order Comment: Speci men Type: BLOOD SPECIMEN Ordering Facility: [facility] Address: [address] [place] [address] Result Comment: Janett mated Glomerular Filtration Rate [...] GFR. Performed By: #### 3 1201-7, 5195-3, 28163-9, SYPH #### [facility] CLIA [id number] [address] [place], [place] [address] [place] Glucose [Mass/Vol] 79 mg/dL Normal 70-100 [facility] Comment on above: Order Comment: Jon russ Type: BLOOD SPECIMEN Ordering Facility: [facility] Address: [address] [place], [place] [id number] Result Comment: The [place] Diabetes Association (ADA) provides guidance for cutoff [...] Standards of Medical Care in Diabetes 2016, [place] [employer] Association. Diabetes Care. 2016.39(Suppl 1). Results may be falsely elevated after the administration of Sulfapyridine. Results may be falsely depressed after the administration of Sulfasalazine. Performed By: #### 3 1201-7, 5195-3, 42074-4, SYPH #### [facility] CLIA [id number] [address] [place], [place] [address] [place] Potassium [Moles/Vol] 4.0 mmol/L Normal 3.5-5.1 [facility] Comment on above: Order Comment: Jon russ Type: BLOOD SPECIMEN Ordering Facility: [facility] Address: [place] [address] Performed By: #### 3 1201-7, 5195-3, 42125-8, SYPH #### [facility] CLIA [id number] [address] [place], [place] [address] [place] Protein [Mass/Vol] 7.2 g/dL Normal 6.0-8.5 [facility] Comment on above: Order Comment: Speci men Type: BLOOD SPECIMEN Ordering Facility: [facility] Address: [address] [place], [place] [phone] Performed By: #### 3 1201-7, 5195-3, 48719-9, SYPH #### [facility] CLIA [id number] [address] [place] [address] Sodium [Moles/Vol] 141 mmol/L Normal 136-145 [facility] Comment on above: Order Comment: Speci men Type: BLOOD SPECIMEN Ordering Facility: [facility] Address: [address] [place], [place] [phone] Performed By: #### 3 1201-7, 5195-3, 63182-5, SYPH #### [facility] CLIA [id number] [address] [place] [address] Urea nitrogen [Mass/Vol] 15 mg/dL Normal 7-26 [facility] Comment on above: Order Comment: Speci men Type: BLOOD SPECIMEN Ordering Facility: [facility] Address: [address] [place], [place] [phone] Performed By: #### 3 1201-7, 5195-3, 03409-0, SYPH #### [facility] CLIA [id number] [address] [place] [address] ED PROV NOTEon 04-06-2023 ED PROV NOTE HNO ID: [id number] Author: Greg Zimmerman DO Service: Emergency Medicine Author Type: Physician [...] hip Pelvic pain in female SIGNATURE: Greg Zimmerman DO PATIENT NAME: Kathleen Villa DATE: April 06, 2023 TIME: 2:25 AM PAGER/CONTACT #: GREG ZIMMERMAN 04/06/23 0236 GREG ZIMMERMAN 04/06/234 [facility] ED PROV NOTE HNO ID: [id number] Author: Jorge Alberto Nj MD Service: ? [...] be ki (more content not included)... Normal [facility] ED Triage Noteon 04-06-2023 ED Triage Note HNO ID: [id number] Author: Merced Mora PA-C Service: ? 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 Type: ED Triage Notes Filed: 04/05/2023 10:31 [...] CMP Urinalysis SIGNATURE: Merced Mora PA-C Normal [facility] HCG QUAL BLDon 04-06-2023 HCG, QUALITATIVE Negative Normal Negative [facility] Comment on above: Order Comment: Speci men Type: BLOOD SPECIMEN Ordering Facility: [facility] Address: [address] [place] [address] Performed By: #### 3 1201-7, 5195-3, 17458-2, SYPH #### [facility] CLIA [id number] [address] [place] [address] OF [place] Urinalysis complete panel (U )on 04-06-2023 Bacteria LM.HPF (Urine sed) [#/Area] Rare Abnormal None Seen [facility] Comment on above: Order Comment: Speci men Type: BLOOD SPECIMEN Ordering Facility: [facility] Address: [address] [place] [address] Performed By: #### 3 1201-7, 5195-3, 83283-3, SYPH #### [facility] CLIA [id number] [address] [place] [address] [place] Bilirubin Ql (U) Negative Normal Negative [facility] Comment on above: Order Comment: Speci men Type: BLOOD SPECIMEN Ordering Facility: [facility] Address: [address] [place] [address] Performed By: #### 3 1201-7, 5-3, 31930-5, SYPH #### [facility] CLIA [id number] [address] [place] [address] [place] Clarity (Unsp spec) Clear Normal Clear [facility] Comment on above: Order Comment: Speci men Type: BLOOD SPECIMEN Ordering Facility: [facility] Address: [address] [place] [address] Performed By: #### 3 1201-7, 5195-3, 02761-6, SYPH #### [facility] CLIA [id number] [address] [place] [address] [place] Color (U) Yellow Normal Yellow [facility] Comment on above: Order Comment: Speci men Type: BLOOD SPECIMEN Ordering Facility: [facility] Address: [address] [address] Performed By: #### 3 1201-7, 5195-3, 95720-6, SYPH #### [facility] CLIA [id number] [address] [place] [address] [place] Epithelial cells LM.HPF (Urine sed) [#/Area] Many Normal [facility] Comment on above: Order Comment: Speci men Type: BLOOD SPECIMEN Ordering Facility: [facility] Address: [address] [address] Performed By: #### 3 1201-7, 5-3, 44698-7, SYPH #### [facility] CLIA [id number] [address] [place] [address] [place] Glucose Test strip (U) [Mass/Vol] Negative Normal Negative [facility] Comment on above: Order Comment: Speci men Type: BLOOD SPECIMEN Ordering Facility: [facility] Address: [address] [place] [address] Performed By: #### 3 1201-7, 5-3, 15133-6, SYPH #### [facility] CLIA [id number] [address] [place] [address] [place] Hemoglobin Ql (U) Negative Normal Negative [facility] Comment on above: Order Comment: Speci men Type: BLOOD SPECIMEN Ordering Facility: [facility] Address: [address] [place] [address] Performed By: #### 3 1201-7, 5-3, 53988-3, SYPH #### [facility] CLIA [id number] [address] [place] [address] [place] Ketones Ql (U) Trace Abnormal Negative [facility] Comment on above: Order Comment: Speci men Type: BLOOD SPECIMEN Ordering Facility: [facility] Address: [address] [address] Performed By: #### 3 1201-7, 5-3, 13253-5, SYPH #### [facility] CLIA [id number] [address] [place] [address] Leukocyte esterase Test strip Ql (U) 1+ Abnormal Negative [facility] Comment on above: Order Comment: Speci men Type: BLOOD SPECIMEN Ordering Facility: [facility] Address: [address] [place] [address] Performed By: #### 3 1201-7, 5195-3, 05417-9, SYPH #### [facility] CLIA [id number] [address] [place] [address] [place] Nitrite Ql (U) Negative Normal Negative [facility] Comment on above: Order Comment: Speci men Type: BLOOD SPECIMEN Ordering Facility: [facility] Address: [address] [place] [address] Performed By: #### 3 1201-7, 5195-3, 88113-0, SYPH #### [facility] CLIA [id number] [address] [place] [address] [place] pH (U) 5.0 [pH] Normal 5.0-8.0 [facility] Comment on above: Order Comment: Speci men Type: BLOOD SPECIMEN Ordering Facility: [facility] Address: [address] [place] [address] Performed By: #### 3 1201-7, 5-3, 48250-0, SYPH #### [facility] CLIA [id number] [address] [place] [address] [place] Protein (U) [Mass/Vol] Negative Normal Negative [facility] Comment on above: Order Comment: Speci men Type: BLOOD SPECIMEN Ordering Facility: [facility] Address: [address] [place] [address] Performed By: #### 3 1201-7, 5-3, 32028-2, SYPH #### [facility] CLIA [id number] [address] [place] [address] [place] RBC LM.HPF (Urine sed) [#/Area] 3-5 /HPF Abnormal 0-3 /HPF [facility] Comment on above: Order Comment: Speci men Type: BLOOD SPECIMEN Ordering Facility: [facility] Address: [address] [place] [address] Performed By: #### 3 1201-7, 5195-3, 60141-2, SYPH #### [facility] CLIA [id number] [address] [place] [address] Specific gravity (U) [Rel density] >1.030 High 1.005-1.030 [facility] Comment on above: Order Comment: Speci men Type: BLOOD SPECIMEN Ordering Facility: [facility] Address: [address] [place] [address] Performed By: #### 3 1201-7, 5195-3, 28529-9, SYPH #### [facility] CLIA [id number] [address] [place] [address] Urobilinogen Ql (U) Negative Normal Negative [facility] Comment on above: Order Comment: Speci men Type: BLOOD SPECIMEN Ordering Facility: [facility] Address: [address] [place] [address] Performed By: #### 3 1201-7, 5195-3, 56003-8, SYPH #### [facility] CLIA [id number] [address] [place] [address] WBC LM.HPF (Urine sed) [#/Area] 6-10 /HPF Abnormal 0-5 /HPF [facility] Comment on above: Order Comment: Speci men Type: BLOOD SPECIMEN Ordering Facility: [facility] Address: [address] [place] [address] Performed By: #### 3 1201-7, 5195-3, 88923-1, SYPH #### [facility] CLIA [id number] [address] [place] [address] ED NOTEon 04-05-2023 ED NOTE HNO ID: [id number] Author: Ten Mao RN Service: Nursing Author Type: Registered Nurse Type: ED Notes Filed: 04/05/2023 9:44 PM Note Text: PT presents to ED with c/o left hip pain, back pain and pelvic pain. Reports hip pain started first this morning. Pain now radiating into back and pelvic area. Endorses nausea. Normal [facility] Basic metabolic 2000 panelon 03-22-2023 Anion gap [Moles/Vol] 7 mmol/L Low 10 - 20 mmol/L [facility] Calcium [Mass/Vol] 8.0 mg/dL Low 8.4 - 10. 2 mg/dL [facility] Chloride [Moles/Vol] 110 mmol/L High 98 - 10 8 mmol/L [facility] Creatinine [Mass/Vol] 0.81 mg/dL 0.40 - 1.10 mg/dL [facility] GFR/1.73 sq M.predicted CKD-EPI (S/P/Bld) [Vol rate/Area] 102 - PINF [facility] Comment on above: Estimated GFR was ca lculated using the 2020 CKD-EPI creatinine equation. Glucose [Mass/Vol] 251 mg/dL High 65 - 99 mg/dL [facility] HCO3 [Moles/Vol] 26 mmol/L 21 - 32 mmol/L [facility] Interpretation and review of laboratory results Abnormal [facility] Potassium [Moles/Vol] 3.2 mmol/L Low 3.5 - 5.1 mmol/L [facility] Sodium [Moles/Vol] 140 mmol/L 135 - 145 mmol/L [facility] Urea nitrogen [Mass/Vol] 8 mg/dL 8 - 25 mg/dL [facility] Urea nitrogen/Creatinine [Mass ratio] 9.9 mg/mg Low 10.0 - 20.0 [facility] has implemented the eGFR calculation approach that does not have a coefficient for race that conforms to the NKF-ASN Task Force Recommendations. [facility] CBC Auto Differentialon 02-26 Basophils (Bld) [#/Vol] 0.02 10*3/uL [facility] Basophils/100 WBC (Bld) 0.2 % [facility] Eosinophils (Bld) [#/Vol] 0.04 10*3/uL [facility] Eosinophils/100 WBC (Bld) 0.4 % [facility] Erythrocyte distribution width (RBC) [Entitic vol] 13.9 % 11.6 - 14.8 % [facility] Hematocrit (Bld) [Volume fraction] 37.4 % 36.0 - 46.0 % [facility] Hemoglobin (Bld) [Mass/Vol] 12.4 g/dL 12.0 - 16.0 g/dL [facility] Immature granulocytes (Bld) [#/Vol] 0.07 10*3/uL [facility] Immature granulocytes/100 WBC (Bld) 0.70 % [facility] Comment on above: The IG parameter is the percentage of metamyelocytes, myelocytes and promyelocytes. An immature granulocyte count (IG) of 1% or more suggests the possibility of infection, an IG count of 3% is very likely related to an infection. Lymphocytes (Bld) [#/Vol] 2.55 10*3/uL [facility] Lymphocytes/100 WBC (Bld) 27.1 % [facility] MCH (RBC) [Entitic mass] 29.1 pg 26.0 - 34.0 pg [facility] MCHC (RBC) [Mass/Vol] 33.2 g/dL 31.0 - 37.0 g/dL [facility] MCV (RBC) [Entitic vol] 87.8 fL 80.0 - 100.0 fL [facility] Monocytes (Bld) [#/Vol] 0.57 10*3/uL [facility] Monocytes/100 WBC (Bld) 6.1 % [facility] Neutrophils (Bld) [#/Vol] 6.16 10*3/uL [facility] Neutrophils/100 WBC (Bld) 65.5 % [facility] Nucleated RBC (Bld) [#/Vol] 0.00 10*3/uL [facility] Nucleated RBC/100 WBC (Bld) [Ratio] 0.0 % [facility] Platelet mean volume (Bld) [Entitic vol] 11.8 fL 9.4 - 12.4 fL [facility] Platelets (Bld) [#/Vol] 165 10*3/uL [facility] RBC (Bld) [#/Vol] 4.26 10*6/uL [facility] WBC (Bld) [#/Vol] 9.41 10*3/uL [facility] Glucose (Bld) [Mass/Vol]on 0 03-22-2023 Glucose [Mass/Vol] 101 mg/dL High 65 - 99 mg/dL [facility] Interpretation and review of laboratory results Abnormal [facility] Glucose [Mass/Vol] 117 mg/dL High 65 - 99 mg/dL [facility] Interpretation and review of laboratory results Abnormal [facility] Glucose [Mass/Vol] 182 mg/dL High 65 - 99 mg/dL [facility] Interpretation and review of laboratory results Abnormal [facility] Glucose [Mass/Vol] 168 mg/dL High 65 - 99 mg/dL [facility] Interpretation and review of laboratory results Abnormal [facility] Glucose [Mass/Vol] 77 mg/dL 65 - 99 mg/dL [facility] Interpretation and review of laboratory results Normal [facility] Glucose [Mass/Vol] 42 mg/dL Low 65 - 99 mg/dL [facility] Interpretation and review of laboratory results Abnormal [facility] Magnesium Levelon 03-22-2023 Magnesium [Mass/Vol] 2.0 mg/dL 1.6 - 2 .4 mg/dL [facility] Magnesium [Mass/Vol]on 03-22 Interpretation and review of laboratory results Normal [facility] No Panel Informationon 03-22 [facility] Phosphate [Mass/Vol]on 03-22 Interpretation and review of laboratory results Abnormal [facility] Phosphoruson 03-22-2023 Phosphate [Mass/Vol] 2.4 mg/dL Low 2.7 - 4 .5 mg/dL [facility] CBC panel Auto (Bld)on 03-21 Erythrocyte distribution width (RBC) [Entitic vol] 14.0 % 11.6 - 14.8 % [facility] Hematocrit (Bld) [Volume fraction] 35.7 % Low 36.0 - 46.0 % [facility] Hemoglobin (Bld) [Mass/Vol] 11.7 g/dL Low 12.0 - 16.0 g/dL [facility] Interpretation and review of laboratory results Abnormal [facility] MCH (RBC) [Entitic mass] 29.2 pg 26.0 - 34.0 pg [facility] MCHC (RBC) [Mass/Vol] 32.8 g/dL 31.0 - 37.0 g/dL [facility] MCV (RBC) [Entitic vol] 89.0 fL 80.0 - 100.0 fL [facility] Nucleated RBC (Bld) [#/Vol] 0.00 10*3/uL [facility] Nucleated RBC/100 WBC (Bld) [Ratio] 0.0 % [facility] Platelet mean volume (Bld) [Entitic vol] 12.9 fL High 9.4 - 12.4 fL [facility] Platelets (Bld) [#/Vol] 169 10*3/uL [facility] RBC (Bld) [#/Vol] 4.01 10*6/uL [facility] WBC (Bld) [#/Vol] 20.82 10*3/uL High [facility] Comprehensive metabolic 2000 panelon 03-21-2023 Albumin [Mass/Vol] 3.3 g/dL 3.2 - 5.2 g/dL [facility] ALP [Catalytic activity/Vol] 71 U/L 40 - 140 U/L [facility] ALT [Catalytic activity/Vol] 20 U/L 14 - 65 U/L [facility] Anion gap [Moles/Vol] 16 mmol/L 10 - 20 mmol/L [facility] AST [Catalytic activity/Vol] 10 U/L 0 - 45 U/L [facility] Bilirubin [Mass/Vol] 0.8 mg/dL 0.0 - 1 .3 mg/dL [facility] Calcium [Mass/Vol] 8.4 mg/dL 8.4 - 10. 2 mg/dL [facility] Chloride [Moles/Vol] 111 mmol/L High 98 - 10 8 mmol/L [facility] Creatinine [Mass/Vol] 0.81 mg/dL 0.40 - 1.10 mg/dL [facility] GFR/1.73 sq M.predicted CKD-EPI (S/P/Bld) [Vol rate/Area] 102 - PINF [facility] Comment on above: Estimated GFR was ca lculated using the 2020 CKD-EPI creatinine equation. Glucose [Mass/Vol] 162 mg/dL High 65 - 99 mg/dL [facility] HCO3 [Moles/Vol] 18 mmol/L Low 21 - 32 mmol/L [facility] Interpretation and review of laboratory results Abnormal [facility] Potassium [Moles/Vol] 3.6 mmol/L 3.5 - 5.1 mmol/L [facility] Protein [Mass/Vol] 6.3 g/dL 6.0 - 8.0 g/dL [facility] Sodium [Moles/Vol] 141 mmol/L 135 - 145 mmol/L [facility] Urea nitrogen [Mass/Vol] 11 mg/dL 8 - 25 mg/dL [facility] Urea nitrogen/Creatinine [Mass ratio] 13.6 mg/mg 10.0 - 20.0 [facility] has implemented the eGFR calculation approach that does not have a coefficient for race that conforms to the NKF-ASN Task Force Recommendations. [facility] Glucose (Bld) [Mass/Vol]on 0 03-21-2023 Glucose [Mass/Vol] 179 mg/dL High 65 - 99 mg/dL [facility] Interpretation and review of laboratory results Abnormal [facility] Glucose [Mass/Vol] 102 mg/dL High 65 - 99 mg/dL [facility] Interpretation and review of laboratory results Abnormal [facility] Glucose [Mass/Vol] 80 mg/dL 65 - 99 mg/dL [facility] Interpretation and review of laboratory results Normal [facility] Glucose [Mass/Vol] 113 mg/dL High 65 - 99 mg/dL [facility] Interpretation and review of laboratory results Abnormal [facility] Magnesiumon 03-21-2023 Magnesium [Mass/Vol] 2.4 mg/dL 1.6 - 2 .4 mg/dL [facility] Magnesium [Mass/Vol]on 03-21 Interpretation and review of laboratory results Normal [facility] No Panel Informationon 03-21 [facility] Phosphate [Mass/Vol]on 03-21 Interpretation and review of laboratory results Normal [facility] Phosphoruson 03-21-2023 Phosphate [Mass/Vol] 2.7 mg/dL 2.7 - 4 .5 mg/dL [facility] Basic metabolic 1998 panelon 03-20-2023 Anion gap [Moles/Vol] 12 mmol/L 10 - 20 mmol/L [facility] Chloride [Moles/Vol] 108 mmol/L 98 - 10 8 mmol/L [facility] Creatinine [Mass/Vol] 0.98 mg/dL 0.40 - 1.10 mg/dL [facility] GFR/1.73 sq M.predicted CKD-EPI (S/P/Bld) [Vol rate/Area] 81 - PINF [facility] Comment on above: Estimated GFR was ca lculated using the 2020 CKD-EPI creatinine equation. Glucose [Mass/Vol] 247 mg/dL High 65 - 99 mg/dL [facility] HCO3 [Moles/Vol] 24 mmol/L 21 - 32 mmol/L [facility] Potassium [Moles/Vol] 3.5 mmol/L 3.5 - 5.1 mmol/L [facility] Sodium [Moles/Vol] 140 mmol/L 135 - 145 mmol/L [facility] Urea nitrogen [Mass/Vol] 15 mg/dL 8 - 25 mg/dL [facility] Urea nitrogen/Creatinine [Mass ratio] 15.3 mg/mg 10.0 - 20.0 [facility] has implemented the eGFR calculation approach that does not have a coefficient for race that conforms to the NKF-ASN Task Force Recommendations. [facility] Basic metabolic 2000 panelon 03-20-2023 Anion gap [Moles/Vol] 13 mmol/L 10 - 20 mmol/L [facility] Calcium [Mass/Vol] 8.1 mg/dL Low 8.4 - 10. 2 mg/dL [facility] Chloride [Moles/Vol] 106 mmol/L 98 - 10 8 mmol/L [facility] Creatinine [Mass/Vol] 0.86 mg/dL 0.40 - 1.10 mg/dL [facility] GFR/1.73 sq M.predicted CKD-EPI (S/P/Bld) [Vol rate/Area] 95 - PINF [facility] Comment on above: Estimated GFR was ca lculated using the 2020 CKD-EPI creatinine equation. Glucose [Mass/Vol] 316 mg/dL High 65 - 99 mg/dL [facility] HCO3 [Moles/Vol] 21 mmol/L 21 - 32 mmol/L [facility] Interpretation and review of laboratory results Abnormal [facility] Potassium [Moles/Vol] 4.0 mmol/L 3.5 - 5.1 mmol/L [facility] Sodium [Moles/Vol] 136 mmol/L 135 - 145 mmol/L [facility] Urea nitrogen [Mass/Vol] 12 mg/dL 8 - 25 mg/dL [facility] Urea nitrogen/Creatinine [Mass ratio] 14.0 mg/mg 10.0 - 20.0 [facility] has implemented the eGFR calculation approach that does not have a coefficient for race that conforms to the NKF-ASN Task Force Recommendations. [facility] Beta HCG ( test) Ql on 03-20-2023 Interpretation and review of laboratory results Normal [facility] Negative: The result is less than or equal to 5 mIU/mL of HCG. [facility] Beta hydroxybutyrate [Moles/ Vol]on 03-20-2023 Interpretation and review of laboratory results Abnormal [facility] Beta-Hydroxybutyrateon 03-20 Beta hydroxybutyrate [Moles/Vol] 1.8 mmol/L High 0.0 - 0.3 mmol/L [facility] CBC Auto Differentialon 02-26 Basophils (Bld) [#/Vol] 0.04 10*3/uL [facility] Basophils/100 WBC (Bld) 0.4 % [facility] Eosinophils (Bld) [#/Vol] 0.03 10*3/uL [facility] Eosinophils/100 WBC (Bld) 0.3 % [facility] Erythrocyte distribution width (RBC) [Entitic vol] 13.7 % 11.6 - 14.8 % [facility] Hematocrit (Bld) [Volume fraction] 38.9 % 36.0 - 46.0 % [facility] Hemoglobin (Bld) [Mass/Vol] 13.0 g/dL 12.0 - 16.0 g/dL [facility] Immature granulocytes (Bld) [#/Vol] 0.08 10*3/uL [facility] Immature granulocytes/100 WBC (Bld) 0.80 % [facility] Comment on above: The IG parameter is the percentage of metamyelocytes, myelocytes and promyelocytes. An immature granulocyte count (IG) of 1% or more suggests the possibility of infection, an IG count of 3% is very likely related to an infection. Interpretation and review of laboratory results Abnormal [facility] Lymphocytes (Bld) [#/Vol] 2.45 10*3/uL [facility] Lymphocytes/100 WBC (Bld) 23.6 % [facility] MCH (RBC) [Entitic mass] 29.0 pg 26.0 - 34.0 pg [facility] MCHC (RBC) [Mass/Vol] 33.4 g/dL 31.0 - 37.0 g/dL [facility] MCV (RBC) [Entitic vol] 86.6 fL 80.0 - 100.0 fL [facility] Monocytes (Bld) [#/Vol] 0.62 10*3/uL [facility] Monocytes/100 WBC (Bld) 6.0 % [facility] Neutrophils (Bld) [#/Vol] 7.17 10*3/uL High [facility] Neutrophils/100 WBC (Bld) 68.9 % [facility] Nucleated RBC (Bld) [#/Vol] 0.00 10*3/uL [facility] Nucleated RBC/100 WBC (Bld) [Ratio] 0.0 % [facility] Platelet mean volume (Bld) [Entitic vol] 12.5 fL High 9.4 - 12.4 fL [facility] Platelets (Bld) [#/Vol] 160 10*3/uL [facility] RBC (Bld) [#/Vol] 4.49 10*6/uL [facility] WBC (Bld) [#/Vol] 10.39 10*3/uL [facility] CT ANGIOGRAM CHEST ABDOMEN P Caitlin 03-20-2023 CT ANGIOGRAM CHEST ABDOMEN PELVIS EXAMINATION: [...] appendectomy surgical clips. NTP/cdr Workstation ID: [id number] Dictated by: DAVID MOURA on MonMar 20, 2023 9:50:12 AM EDT Transcribed by: TANNER LOVETT on MonMar 20, 2023 9:59:46 AM EDT Finalized by: DAVID MOURA on MonMar 20, 2023 10:29:33 AM EDT Normal [facility] Comment on above: Order Comment: Injur y/Trauma or Illness?:Illness/Other How long have you had these symptoms (acute/chronic)?:Acute Reason for exam?:chest and abd pain, vomiting Type of Exam?:Initial Additional signs and symptoms?: CT Angiogram Chest Abdomen P [facility] 03-20-2023 1. No acute thoracoabdominal [...] appendectomy surgical clips. NTP/cdr Workstation ID: [id number] GE [facility] EXAMINATION: CT ANGIOGRAM CHEST ABDOMEN PELVIS [...] Abdominal wall structures appear to be intact. [employer] David Kulkarni, DO - 03/20/2023 EXAMINATION: CT [...] appendectomy surgical clips. NTP/cdr Workstation ID: [id number] [facility] Radiology Study observation (narrative) [facility] CT Angiogram Chest Abdomen P elvisOrdered By: David Moura on 03-20-2023 [facility] Work Phone: ECG 12 Leadon [...] normal T Waves: T waves normal normal VT interval QT Interval: 514 Clinical impression: non-specific ECG and sinus bradycardia [facility] EKGon 03-20-2023 [facility] EKG 12-leadon 03-20-2023 Atrial Rate 56 BPM [facility] P Bowler 9 degrees [facility] P-R Interval 130 ms [facility] Q-T Interval 514 ms [facility] QRS Duration 108 ms [facility] QTC Calculation (Bezet) 496 ms [facility] R Bowler 51 degrees [facility] T Bowler 42 degrees [facility] Ventricular Rate 56 BPM [facility] th Sinus bradycardia wi th sinus arrhythmia Prolonged QT Abnormal ECG ECG Cart Interpretation see physician note for interpretation. Confirmed by Zita Dozier ([id number]) on 03/20/2023 1:39:42 PM MUSE [facility] Atrial Rate 73 BPM [facility] P Bowler 45 degrees [facility] P-R Interval 136 ms [facility] Q-T Interval 398 ms [facility] QRS Duration 92 ms [facility] QTC Calculation (Bezet) 438 ms [facility] R Bowler 83 degrees [facility] T Bowler 53 degrees [facility] Ventricular Rate 73 BPM [facility] th Mariel Gagnon M D 03/21/2023 2:39 PM EKG 12-lead Date/Time: 03/20/2023 6:02 AM Performed by: Mariel Gagnon MD Authorized by: Mariel Gagnon MD Interpreted by ED attending physician Rhythm: sinus rhythm BPM: 73 QRS axis: normal Clinical impression: normal ECG MUSE [facility] Glucose (Bld) [Mass/Vol]on 0 03-20-2023 Glucose [Mass/Vol] 245 mg/dL High 65 - 99 mg/dL [facility] Interpretation and review of laboratory results Abnormal [facility] Glucose [Mass/Vol] 284 mg/dL High 65 - 99 mg/dL [facility] Interpretation and review of laboratory results Abnormal [facility] Glucose [Mass/Vol] 406 mg/dL Critically high 65 - 99 mg/d L [facility] Interpretation and review of laboratory results Abnormal [facility] Critical result acte d upon time of test. Test performed at bedside. [facility] HCG (QUALITATIVE)on 03-20-20 23 Beta HCG ( test) Ql Negative Negative [facility] HbA1c (Bld) [Mass fraction]O rdered By: Destinee Baez on 03-20-2023 Average glucose Estimated from glycated hemoglobin (Bld) [Mass/Vol] 160 mg/dL High 68 - 114 mg/dL [facility] Interpretation and review of laboratory results Abnormal [facility] Normal: 4.0% - 5.6% Increased risk for diabetes: 5.7% - 6.4% Diabetes: >= 6.5% Pediatrics: No established reference range Estimated average glucose: 68-114 mg/dL [facility] Hemoglobin [id number] By: Georgina Baez on 03-20-2023 HbA1c (Bld) [Mass fraction] 7.2 % High 4.0 - 5.6 % [facility] Hepatic function 2000 panelo n 03-20-2023 Albumin [Mass/Vol] 3.8 g/dL 3.2 - 5.2 g/dL [facility] ALP [Catalytic activity/Vol] 84 U/L 40 - 140 U/L [facility] ALT [Catalytic activity/Vol] 26 U/L 14 - 65 U/L [facility] AST [Catalytic activity/Vol] 13 U/L 0 - 45 U/L [facility] Bilirubin [Mass/Vol] 0.6 mg/dL 0.0 - 1 .3 mg/dL [facility] Bilirubin.conjugated [Mass/Vol] 0.1 mg/dL 0.0 - 0.4 mg/dL [facility] Interpretation and review of laboratory results Normal [facility] Protein [Mass/Vol] 7.2 g/dL 6.0 - 8.0 g/dL [facility] Light Blue Topon 03-20-2023 Extra Tube Hold for add-ons. [facility] Comment on above: Auto resulted. [facility] Lipaseon 03-20-2023 Lipase [Catalytic activity/Vol] 53 U/L Low 73 - 393 U/L [facility] Magnesium Levelon 03-20-2023 Magnesium [Mass/Vol] 1.8 mg/dL 1.6 - 2 .4 mg/dL [facility] Magnesium [Mass/Vol]on 03-20 Interpretation and review of laboratory results Normal [facility] No Panel Informationon 03-20 Interpretation and review of laboratory results Abnormal [facility] UrinalysisOrdered By: Alysha Ramos on 03-20-2023 Bacteria Auto Ql (U) None Seen None Seen /hpf [facility] Bilirubin Ql (U) Negative Negative [facility] Clarity Refractometry automated (U) Cloudy Abnormal Clear [facility] Color (U) Yellow Colorless, Yellow [facility] Glucose Auto test strip (U) [Mass/Vol] >=500 Abnormal Negative mg/dL [facility] Hemoglobin Auto test strip Ql (U) Negative Negative [facility] Interpretation and review of laboratory results Abnormal [facility] Ketones (U) [Mass/Vol] mg/dL Abnormal Negative mg/d L [facility] Leukocyte esterase Auto test strip Ql (U) Negative Negative [facility] h Mucus Auto (Urine sed) [#/Area] Rare None Seen, Rare /lpf [facility] Nitrite Auto test strip Ql (U) Negative Negative [facility] pH (U) 7.0 [pH] 5.0 - 7.0 [facility] Protein (U) [Mass/Vol] Negative Negative mg/d L [facility] RBC Auto (Urine sed) [#/Area] 1 [facility] Specific gravity (U) [Rel density] 1.023 1.005 - 1.025 [facility] Urobilinogen (U) [Mass/Vol] mg/dL NINF - 2.0 mg/dL [facility] WBC Auto (Urine sed) [#/Area] 3 [facility] Microscopic examination is performed on all urinalysis samples and only positive findings are reported. The test for blood on the chemical analytic portion of urinalysis may also be positive due to hemoglobinuria and myoglobinuria and if red blood cells are present they are quantified by microscopic examination. [facility] CNPNon 02-26-2023 CNPN Telephone (AKURFL) KATHLEEN VILLA ([id number]) 1995 F CHT Date Time Provider Department [...] Status:Closed by VERITO BORDEN on 02/26/23 Normal [facility] Basic metabolic 2000 panelon 02-04-2023 Anion gap [Moles/Vol] 8 mmol/L Normal 5-16 [facility] Comment on above: Order Comment: Speci men Type: BLOOD SPECIMEN Ordering Facility: [facility] Address: [address] [place] [address] Performed By: #### 3 1201-7, 5195-3, 19606-9, SYPH #### [facility] CLIA [id number] [address] [place] [address] [place] Calcium [Mass/Vol] 8.3 mg/dL Low 8.5-10.5 [facility] Comment on above: Order Comment: Speci men Type: BLOOD SPECIMEN Ordering Facility: [facility] Address: [address] [place] [address] Performed By: #### 3 1201-7, 5195-3, 74697-5, SYPH #### [facility] CLIA [id number] [address] [place] [address] [place] Chloride [Moles/Vol] 106 mmol/L Normal 98-107 [facility] Comment on above: Order Comment: Speci men Type: BLOOD SPECIMEN Ordering Facility: [facility] Address: [address] [place] [address] Performed By: #### 3 1201-7, 5195-3, 82001-2, SYPH #### [facility] CLIA [id number] [address] [place] [address] [place] CO2 [Moles/Vol] 27 mmol/L Normal 21-32 [facility] Comment on above: Order Comment: Speci men Type: BLOOD SPECIMEN Ordering Facility: [facility] Address: [address] [place] [address] Performed By: #### 3 1201-7, 5195-3, 34147-1, SYPH #### [facility] CLIA [id number] [address] [place] [address] [place] Creatinine [Mass/Vol] 0.58 mg/dL Normal 0.51-0.95 [facility] Comment on above: Order Comment: Speci men Type: BLOOD SPECIMEN Ordering Facility: [facility] Address: [address] [place] [address] Result Comment: Cleopatra ents receiving either N-Acetylcysteine (NAC) or Metamizole prior to venipuncture, may have falsely depressed results. Performed By: #### 3 1201-7, 5195-3, 40117-3, SYPH #### [facility] CLIA [id number] [address] [place] [address] [place] ESTIMATED GLOMERULAR FILTRATION RATE 127 mL/min/1.73m??? Normal >=60 [facility] Comment on above: Order Comment: Speci men Type: BLOOD SPECIMEN Ordering Facility: [facility] Address: [address] [place] [address] Result Comment: Janett mated Glomerular Filtration Rate [...] GFR. Performed By: #### 3 1201-7, 5195-3, 52102-1, SYPH #### [facility] CLIA [id number] [address] [place], [place] [id number] [place] Glucose [Mass/Vol] 271 mg/dL High 70-100 [facility] Comment on above: Order Comment: Speci men Type: BLOOD SPECIMEN Ordering Facility: [facility] Address: [address] [place] [address] Result Comment: The [place] Diabetes Association (ADA) provides guidance for cutoff [...] Standards of Medical Care in Diabetes 2016, [place] [employer]. Diabetes Care. 2016.39(Suppl 1). Results may be falsely elevated after the administration of Sulfapyridine. Results may be falsely depressed after the administration of Sulfasalazine. Performed By: #### 3 1201-7, 5195-3, 85572-4, SYPH #### [facility] CLIA [id number] [address] [place] [address] [place] Potassium [Moles/Vol] 3.4 mmol/L Low 3.5-5.1 [facility] Comment on above: Order Comment: Jon russ Type: BLOOD SPECIMEN Ordering Facility: [facility] Address: [address] [place] [address] Performed By: #### 3 1201-7, 5195-3, 91491-2, SYPH #### [facility] CLIA [id number] [address] [place] [address] [place] Sodium [Moles/Vol] 141 mmol/L Normal 136-145 [facility] Comment on above: Order Comment: Jon russ Type: BLOOD SPECIMEN Ordering Facility: [facility] Address: [address] [place], [place] [address] Performed By: #### 3 1201-7, 5195-3, 71784-8, SYPH #### [facility] CLIA [id number] [address] [place] [address] [place] Urea nitrogen [Mass/Vol] 6 mg/dL Low 7-26 [facility] Comment on above: Order Comment: Speci men Type: BLOOD SPECIMEN Ordering Facility: [facility] Address: [address] [place] [address] Performed By: #### 3 1201-7, 5195-3, 40827-8, SYPH #### [facility] CLIA [id number] [address] [place] [address] [place] Anion gap [Moles/Vol] 7 mmol/L Normal 5-16 [facility] Comment on above: Order Comment: Speci men Type: BLOOD SPECIMEN Ordering Facility: [facility] Address: [address] [place] [address] Performed By: #### 3 1201-7, 5195-3, 21590-5, SYPH #### [facility] CLIA [id number] [address] [place] [address] [place] Calcium [Mass/Vol] 8.0 mg/dL Low 8.5-10.5 [facility] Comment on above: Order Comment: Speci men Type: BLOOD SPECIMEN Ordering Facility: [facility] Address: [address] [place] [address] Performed By: #### 3 1201-7, 5195-3, 39941-1, SYPH #### [facility] CLIA [id number] [address] [place] [address] [place] Chloride [Moles/Vol] 106 mmol/L Normal 98-107 [facility] Comment on above: Order Comment: Speci men Type: BLOOD SPECIMEN Ordering Facility: [facility] Address: [address] [place] [address] Performed By: #### 3 1201-7, 5-3, 34397-4, SYPH #### [facility] CLIA [id number] [address] [place] [address] [place] CO2 [Moles/Vol] 27 mmol/L Normal 21-32 [facility] Comment on above: Order Comment: Speci men Type: BLOOD SPECIMEN Ordering Facility: [facility] Address: [address] Performed By: #### 3 1201-7, 5195-3, 69091-3, SYPH #### [facility] CLIA [id number] [address] [place] [address] [place] Creatinine [Mass/Vol] 0.61 mg/dL Normal 0.51-0.95 [facility] Comment on above: Order Comment: Jon russ Type: BLOOD SPECIMEN Ordering Facility: [facility] Address: [address] Result Comment: Cleopatra ents receiving either N-Acetylcysteine (NAC) or Metamizole prior to venipuncture, may have falsely depressed results. Performed By: #### 3 1201-7, 5195-3, 73068-2, SYPH #### [facility] CLIA [id number] [address] [place] [address] OF [facility] ESTIMATED GLOMERULAR FILTRATION RATE 125 mL/min/1.73m??? Normal >=60 [facility] Comment on above: Order Comment: Jon russ Type: BLOOD SPECIMEN Ordering Facility: [facility] Address: [place] [address] Result Comment: Janett mated Glomerular Filtration Rate [...] GFR. Performed By: #### 3 1201-7, 5195-3, 31190-3, SYPH #### [facility] CLIA [id number] [address] [place], [place] [address] [place] Glucose [Mass/Vol] 269 mg/dL High 70-100 [facility] Comment on above: Order Comment: Jon russ Type: BLOOD SPECIMEN Ordering Facility: [facility] Address: [address] Result Comment: The [place] Diabetes Association (ADA) provides guidance for cutoff [...] Standards of Medical Care in Diabetes 2016, [place] [employer]. Diabetes Care. 2016.39(Suppl 1). Results may be falsely elevated after the administration of Sulfapyridine. Results may be falsely depressed after the administration of Sulfasalazine. Performed By: #### 3 1201-7, 5195-3, 22970-2, SYPH #### [facility] CLIA [id number] [address] [place] [address] [place] Potassium [Moles/Vol] 3.5 mmol/L Normal 3.5-5.1 [facility] Comment on above: Order Comment: Speci men Type: BLOOD SPECIMEN Ordering Facility: [facility] Address: [address] [place] [address] Performed By: #### 3 1201-7, 5195-3, 62553-3, SYPH #### [facility] CLIA [id number] [address] [place] [address] [place] Sodium [Moles/Vol] 140 mmol/L Normal 136-145 [facility] Comment on above: Order Comment: Speci men Type: BLOOD SPECIMEN Ordering Facility: [facility] Address: [address] [place] [address] Performed By: #### 3 1201-7, 5195-3, 64023-6, SYPH #### [facility] CLIA [id number] [address] [place] [address] [place] Urea nitrogen [Mass/Vol] 6 mg/dL Low 7-26 [facility] Comment on above: Order Comment: Speci men Type: BLOOD SPECIMEN Ordering Facility: [facility] Address: [address] [place] [address] Performed By: #### 3 1201-7, 5195-3, 02953-9, SYPH #### [facility] CLIA [id number] [address] [place] [address] [place] CBC W Auto Differential pane l (Bld)on 02-04-2023 Basophils (Bld) [#/Vol] 0.04 10*3/uL Normal <0.11 [facility] Comment on above: Order Comment: Speci men Type: BLOOD SPECIMEN Ordering Facility: [facility] Address: [address] [place] [address] Performed By: #### 3 1201-7, 5195-3, 39487-6, SYPH #### [facility] CLIA [id number] [address] [place] [address] [place] Basophils/100 WBC (Bld) 0.4 % Normal [facility] Comment on above: Order Comment: Speci men Type: BLOOD SPECIMEN Ordering Facility: [facility] Address: [address] [place] [address] Performed By: #### 3 1201-7, 5-3, 97872-6, SYPH #### [facility] CLIA [id number] [address] [place] [address] [place] Differential cell count method Nom (Bld) Auto Normal [facility] Comment on above: Order Comment: Speci men Type: BLOOD SPECIMEN Ordering Facility: [facility] Address: [address] [place] [address] Performed By: #### 3 1201-7, 5195-3, 97539-5, SYPH #### [facility] CLIA [id number] [address] [place] [address] [place] Eosinophils (Bld) [#/Vol] 0.04 10*3/uL Normal <0.46 [facility] [facility] Comment on above: Order Comment: Speci men Type: BLOOD SPECIMEN Ordering Facility: [facility] Address: [address] [place] [address], [place] [address] Performed By: #### 3 1201-7, 5195-3, 02925-9, SYPH #### [facility] CLIA [id number] [address] [place] [address] [place] Eosinophils/100 WBC (Bld) 0.4 % Normal [facility] Comment on above: Order Comment: Speci men Type: BLOOD SPECIMEN Ordering Facility: [facility] Address: [address] [address] Performed By: #### 3 1201-7, 5195-3, 45607-6, SYPH #### [facility] CLIA [id number] [address] [place] [address] [place] Erythrocyte distribution width (RBC) [Ratio] 13.3 % Normal 11.5-15.0 [facility] Comment on above: Order Comment: Speci men Type: BLOOD SPECIMEN Ordering Facility: [facility] Address: [address] [address] Performed By: #### 3 1201-7, 5195-3, 14689-7, SYPH #### [facility] CLIA [id number] [address] [place] [address] [place] Hematocrit (Bld) [Volume fraction] 34.5 % Low 36.0-46.0 [facility] Comment on above: Order Comment: Speci men Type: BLOOD SPECIMEN Ordering Facility: [facility] Address: [address] Performed By: #### 3 1201-7, 5195-3, 25268-9, SYPH #### [facility] CLIA [id number] [address] [place] [address] [place] Hemoglobin (Bld) [Mass/Vol] 11.6 g/dL Normal 11.5-15.5 [facility] Comment on above: Order Comment: Speci men Type: BLOOD SPECIMEN Ordering Facility: [facility] Address: [address] [address] Performed By: #### 3 1201-7, 5195-3, 97343-9, SYPH #### [facility] CLIA [id number] [address] [place] [address] [place] Immature granulocytes (Bld) [#/Vol] 0.10 10*3/uL High <0.10 [facility] Comment on above: Order Comment: Speci men Type: BLOOD SPECIMEN Ordering Facility: [facility] Address: [address] [place] [address] Performed By: #### 3 1201-7, 5194-3, 25345-9, SYPH #### [facility] CLIA [id number] [address] [place] [address] [place] Immature granulocytes/100 WBC (Bld) 0.9 % Normal [facility] Comment on above: Order Comment: Speci men Type: BLOOD SPECIMEN Ordering Facility: [facility] Address: [address] [place] [address] Performed By: #### 3 120-7, 3, , SYPH #### [facility] CLIA [id number] [address] [place] [address] [place] Lymphocytes (Bld) [#/Vol] 2.41 10*3/uL Normal 1.00-4.00 [facility] Comment on above: Order Comment: Speci men Type: BLOOD SPECIMEN Ordering Facility: [facility] Address: [address] [address] Performed By: #### 3 1201-7, 3, , SYPH #### [facility] CLIA [id number] [address] [place] [address] [place] Lymphocytes/100 WBC (Bld) 22.3 % Normal [facility] Comment on above: Order Comment: Speci men Type: BLOOD SPECIMEN Ordering Facility: [facility] Address: [address] [place] [address] Performed By: #### 3 1201-7, 5194-3, 63609-5, SYPH #### [facility] CLIA [id number] [address] [place] [address] STATES OF [facility] MCH (RBC) [Entitic mass] 29.1 pg Normal 26.0-34.0 [facility] Comment on above: Order Comment: Speci men Type: BLOOD SPECIMEN Ordering Facility: [facility] Address: [address] [place] [address] Performed By: #### 3 1201-7, 5195-3, 14578-8, SYPH #### [facility] CLIA [id number] [address] [place] [address] [place] MCHC (RBC) [Mass/Vol] 33.6 g/dL Normal 30.5-36.0 [facility] Comment on above: Order Comment: Speci men Type: BLOOD SPECIMEN Ordering Facility: [facility] Address: [address] [place] [address] Performed By: #### 3 1201-7, 5195-3, 74353-0, SYPH #### [facility] CLIA [id number] [address] [place] [address] [place] MCV (RBC) [Entitic vol] 86.5 fL Normal 80.0-100.0 [facility] Comment on above: Order Comment: Speci men Type: BLOOD SPECIMEN Ordering Facility: [facility] Address: [address] [place] [address] Performed By: #### 3 1201-7, 5195-3, 37797-9, SYPH #### [facility] CLIA [id number] [address] [place] [address] [place] Monocytes (Bld) [#/Vol] 0.70 10*3/uL Normal <0.87 [facility] Comment on above: Order Comment: Speci men Type: BLOOD SPECIMEN Ordering Facility: [facility] Address: [address] [place] [address] Performed By: #### 3 1201-7, 5195-3, 77738-5, SYPH #### [facility] CLIA [id number] [address] [place] [address] [place] Monocytes/100 WBC (Bld) 6.5 % Normal [facility] Comment on above: Order Comment: Speci men Type: BLOOD SPECIMEN Ordering Facility: [facility] Address: [address] [address] Performed By: #### 3 1201-7, 5195-3, 49740-7, SYPH #### [facility] CLIA [id number] [address] [place] [address] [place] Neutrophils (Bld) [#/Vol] 7.54 10*3/uL High 1.45-7.50 [facility] Comment on above: Order Comment: Speci men Type: BLOOD SPECIMEN Ordering Facility: [facility] Address: [address] [address] Performed By: #### 3 1201-7, 5195-3, 63522-9, SYPH #### [facility] CLIA [id number] [address] [place] [address] [place] Neutrophils/100 WBC (Bld) 69.5 % Normal [facility] Comment on above: Order Comment: Speci men Type: BLOOD SPECIMEN Ordering Facility: [facility] Address: [address] [place] [address] Performed By: #### 3 1201-7, 5-3, 90090-9, SYPH #### [facility] CLIA [id number] [address] [place] [address] [place] Nucleated RBC (Bld) [#/Vol] 10*3/uL Normal <0.01 [facility] Comment on above: Order Comment: Speci men Type: BLOOD SPECIMEN Ordering Facility: [facility] Address: [address] [address] Performed By: #### 3 1201-7, 5-3, 08018-6, SYPH #### [facility] CLIA [id number] [address] [place] [address] [place] Nucleated RBC/100 WBC (Bld) [Ratio] 0.0 /100 WBC Normal [facility] Comment on above: Order Comment: Speci men Type: BLOOD SPECIMEN Ordering Facility: [facility] Address: [address] [place] [address] Performed By: #### 3 1201-7, 5195-3, 69715-6, SYPH #### [facility] CLIA [id number] [address] [place] [address] [place] Platelet mean volume (Bld) [Entitic vol] 11.7 fL Normal 9.0-12.7 [facility] Comment on above: Order Comment: Speci men Type: BLOOD SPECIMEN Ordering Facility: [facility] Address: [address] [place] [address] Performed By: #### 3 1201-7, 5195-3, 42255-9, SYPH #### [facility] CLIA [id number] [address] [place] [address] [place] Platelets (Bld) [#/Vol] 163 10*3/uL Normal 150-400 [facility] Comment on above: Order Comment: Speci men Type: BLOOD SPECIMEN Ordering Facility: [facility] Address: [address] [place] [address] Performed By: #### 3 1201-7, 5195-3, 10917-5, SYPH #### [facility] CLIA [id number] [address] [place] [address] [place] RBC (Bld) [#/Vol] 3.99 10*6/uL Normal 3.90-5.20 [facility] Comment on above: Order Comment: Speci men Type: BLOOD SPECIMEN Ordering Facility: [facility] Address: [address] [place] [address] Performed By: #### 3 1201-7, 5195-3, 66098-8, SYPH #### [facility] CLIA [id number] [address] [place] [address] [place] WBC (Bld) [#/Vol] 10.83 10*3/uL Normal 3.70-11.00 [facility] Comment on above: Order Comment: Speci men Type: BLOOD SPECIMEN Ordering Facility: [facility] Address: [place] [address] Performed By: #### 3 1201-7, 5195-3, 60329-6, [facility] #### [facility] CLIA [id number] [address] [place] [address] [facility] [place] CNDSon 02-04-2023 CNDS HNO ID: [id number] Author: David Burnett DO Service: Hospital Medicine [...] summary. 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 Patient has a known history of diabetic gastroparesis. She follows in [facility]. She was admitted to [place]. Unfortunately she has not been tolerating p.o. [...] She will cotninue following with her personal machine stuffer automatic outpatient. Follow up with PCP in one [...] use of insulin (HCC); Insulin pump status prochlorperazine (COMPAZINE) 10 mg Take 10 mg by mouth every 6 hours as needed. Qty: 15 tablet Refills: 0 Lancets (MICROLET LANCET) lancets Use as instructed to test blood sugar 4 times daily. E10.65 Qty: 400 Each Refills: 3 Associated Diagnoses:Type 1 diabetes mellitus with hyperglycemia, with long-term current use of insulin (HCC); Insulin pump status blood sugar diagnostic (CONTOUR NEXT TEST STRIPS) test strip Use as instructed to check blood glucose 5 times daily. E10.65 Qty: 500 Strip Refills: 3 Associated Diagnoses:Type 1 diabetes mellitus with hyperglycemia, with long-term current use of insulin ([facility]); Insulin p (more content not included)... [facility] ALLIED HEALTHon 02-03-2023 ALLIED HEALTH HNO ID: [id number] Author: Chaplain Craig Service: Spiritual Care Author Type: Junior Database Administrator Type: Allied Health Filed: 02/03/2023 11:39 AM Note Text: SPIRITUAL CARE PROGRESS NOTE SERVICE DATE: 02/03/2023 SERVICE TIME: 10:35 am While rounding in ICU, attempted to provided spiritual presence to patient. Patient was busy . No family was present. A rotary drum tanner will follow up. To contact the Spiritual Care Department: Please call [phone]. SIGNATURE: Chaplain Craig PATIENT NAME: Kathleen Villa DATE: February 03, 2023 TIME: 11:37 AM PAGER/CONTACT #: [phone] [facility] Basic metabolic 2000 panelon 02-03-2023 Anion gap [Moles/Vol] 9 mmol/L Normal 5-16 [facility] Comment on above: Order Comment: Speci men Type: BLOOD SPECIMEN Ordering Facility: [facility] Address: [place] [address] Performed By: #### 3 1201-7, 5195-3, 03032-8, SYPH #### [facility] CLIA [id number] [facility] [place] [address] [place] Calcium [Mass/Vol] 8.1 mg/dL Low 8.5-10.5 [facility] Comment on above: Order Comment: Speci men Type: BLOOD SPECIMEN Ordering Facility: [facility] Address: [address] [place] [address] Performed By: #### 3 1201-7, 5195-3, 28602-6, SYPH #### [facility] CLIA [id number] [address] [place] [address] [place] Chloride [Moles/Vol] 112 mmol/L High 98-107 [facility] Comment on above: Order Comment: Speci men Type: BLOOD SPECIMEN Ordering Facility: [facility] Address: [address] [place] [address] Performed By: #### 3 1201-7, 5195-3, , SYPH #### [facility] CLIA [id number] [address] [place] [address] [place] CO2 [Moles/Vol] 22 mmol/L Normal 21-32 [facility] Comment on above: Order Comment: Speci men Type: BLOOD SPECIMEN Ordering Facility: [facility] Address: [address] [place] [address] Performed By: #### 3 1201-7, 3, , SYPH #### [facility] CLIA [id number] [address] [place] [address] [place] Creatinine [Mass/Vol] 0.57 mg/dL Normal 0.51-0.95 [facility] Comment on above: Order Comment: Speci men Type: BLOOD SPECIMEN Ordering Facility: [facility] Address: [address] [place] [address] Result Comment: Cleopatra ents receiving either N-Acetylcysteine (NAC) or Metamizole prior to venipuncture, may have falsely depressed results. Performed By: #### 3 1201-7, 5195-3, 51816-5, SYPH #### [facility] CLIA [id number] [address] [place] [address] [place] ESTIMATED GLOMERULAR FILTRATION RATE 127 mL/min/1.73m??? Normal >=60 [facility] Comment on above: Order Comment: Jon jeb Type: BLOOD SPECIMEN Ordering Facility: [facility] Address: [address] [place] [address] Result Comment: Janett mated Glomerular Filtration Rate [...] GFR. Performed By: #### 3 1201-7, 5195-3, 28973-9, SYPH #### [facility] CLIA [id number] [address] [place], [place] [address] [place] Glucose [Mass/Vol] 135 mg/dL High 70-100 [facility] Comment on above: Order Comment: Jon russ Type: BLOOD SPECIMEN Ordering Facility: [facility] Address: [address] [place] [address] Result Comment: The [place] Diabetes Association (ADA) provides guidance for cutoff [...] Standards of Medical Care in Diabetes 2016, [place] [employer] Association. Diabetes Care. 2016.39(Suppl 1). Results may be falsely elevated after the administration of Sulfapyridine. Results may be falsely depressed after the administration of Sulfasalazine. Performed By: #### 3 1201-7, 5195-3, 30512-0, SYPH #### [facility] CLIA [id number] [address] [place], [place] [address] [place] Potassium [Moles/Vol] 4.0 mmol/L Normal 3.5-5.1 [facility] Comment on above: Order Comment: Speci men Type: BLOOD SPECIMEN Ordering Facility: [facility] Address: [address] [id number] Performed By: #### 3 1201-7, 5195-3, 05047-3, SYPH #### [facility] CLIA [id number] [address] [place] [address] [place] Sodium [Moles/Vol] 143 mmol/L Normal 136-145 [facility] Comment on above: Order Comment: Speci men Type: BLOOD SPECIMEN Ordering Facility: [facility] Address: [address] [place], [place] [id number] Performed By: #### 3 1201-7, 5195-3, 90914-3, SYPH #### [facility] CLIA [id number] [address] [place] [address] [place] Urea nitrogen [Mass/Vol] 8 mg/dL Normal 7-26 [facility] Comment on above: Order Comment: Speci men Type: BLOOD SPECIMEN Ordering Facility: [facility] Address: [address] [place], [place] [id number] Performed By: #### 3 1201-7, 5195-3, 92066-3, SYPH #### [facility] CLIA [id number] [address] [place] [address] [place] OF [place] CASE MGT INIT ASSESon 2022 CASE MGT INIT ASSES HNO ID: [id number] Author: MICHELLE Tobar Service: Social Work Author Type: Music Store Manager Type: Care Mgt Initial Assessment Filed: 02/03/2023 2:35 PM Note Text: CARE MANAGEMENT: ASSESSMENT AND DISCHARGE PLAN SERVICE DATE: February 03, 2023 SERVICE TIME: 2:31 PM PCP: Vivi Smith MD Primary Contact: Extended Emergency Contact Information Primary Emergency Contact: Christie,Rene [place] Relation: Significant other Admission Status: Inpatient Insurance Provider: [employer] Discharge Planning requested by: Per Department Practice Potential Transition Plans Home Advance Directives Current Advance Directive: None Sports Fitness And Wellness Director Attempted to Assist with AD Completion: Yes Action: Education Provided;Patient Unwilling Current Living Arrangements and Support Lives with: Spouse/significant other, Other person(s) Rene (BF) and his daughter and her fiance Type [...] Be able to go home, General wellness [place] of Choice Explained: [place] of Choice Given: No Reason Not Given: [...] Patient reports Rene will provide transport at [place]. SIGNATURE: MICHELLE Tobar PATIENT NAME: Kathleen Villa DATE: February 03, 2023 TIME: 2:31 PM CONTACT #: [phone] [facility] CBC W Auto Differential pane l (Bld)on 06-09-2023 Basophils (Bld) [#/Vol] 0.05 10*3/uL Normal <0.11 [facility] Comment on above: Order Comment: Speci men Type: BLOOD SPECIMEN Ordering Facility: [facility] Address: [address] [place] [address] Performed By: #### 3 1201-7, 5-3, 90733-4, SYPH #### [facility] CLIA [id number] [address] [place] [address] [place] Basophils/100 WBC (Bld) 0.3 % Normal [facility] Comment on above: Order Comment: Speci men Type: BLOOD SPECIMEN Ordering Facility: [facility] Address: [address] [place] [address] Performed By: #### 3 1201-7, 5194-3, 65910-4, SYPH #### [facility] CLIA [id number] [address] [place] [address] [place] Differential cell count method Nom (Bld) Auto Normal [facility] Comment on above: Order Comment: Speci men Type: BLOOD SPECIMEN Ordering Facility: [facility] Address: [address] [place] [address] Performed By: #### 3 1201-7, 3, , SYPH #### [facility] CLIA [id number] [address] [place] [address] [place] Eosinophils (Bld) [#/Vol] 10*3/uL Normal <0.46 [facility] Comment on above: Order Comment: Speci men Type: BLOOD SPECIMEN Ordering Facility: [facility] Address: [address] [place] [address] Performed By: #### 3 1201-7, 5194-3, 12711-2, SYPH #### [facility] CLIA [id number] [address] [place] [address] [place] Eosinophils/100 WBC (Bld) 0.0 % Normal [facility] Comment on above: Order Comment: Speci men Type: BLOOD SPECIMEN Ordering Facility: [facility] Address: [address] [address] Performed By: #### 3 1201-7, 5195-3, 60812-2, SYPH #### [facility] CLIA [id number] [address] [place] [address] [place] Erythrocyte distribution width (RBC) [Ratio] 13.5 % Normal 11.5-15.0 [facility] Comment on above: Order Comment: Speci men Type: BLOOD SPECIMEN Ordering Facility: [facility] Address: [address] [address] Performed By: #### 3 1201-7, 5195-3, 25153-2, SYPH #### [facility] CLIA [id number] [address] [place] [address] [place] Hematocrit (Bld) [Volume fraction] 37.7 % Normal 36.0-46.0 [facility] Comment on above: Order Comment: Speci men Type: BLOOD SPECIMEN Ordering Facility: [facility] Address: [address] [address] Performed By: #### 3 1201-7, 5195-3, 87982-6, SYPH #### [facility] CLIA [id number] [address] [place] [address] [place] Hemoglobin (Bld) [Mass/Vol] 11.8 g/dL Normal 11.5-15.5 [facility] Comment on above: Order Comment: Speci men Type: BLOOD SPECIMEN Ordering Facility: [facility] Address: [address] [address] Performed By: #### 3 1201-7, 5195-3, 91001-5, SYPH #### [facility] CLIA [id number] [address] [place] [address] [place] Immature granulocytes (Bld) [#/Vol] 0.16 10*3/uL High <0.10 [facility] Comment on above: Order Comment: Speci men Type: BLOOD SPECIMEN Ordering Facility: [facility] Address: [address] [address] Performed By: #### 3 1201-7, 5195-3, 12567-2, SYPH #### [facility] CLIA [id number] [address] [place] [address] [place] Immature granulocytes/100 WBC (Bld) 1.0 % Normal [facility] Comment on above: Order Comment: Speci men Type: BLOOD SPECIMEN Ordering Facility: [facility] Address: [address] [place] [address] Performed By: #### 3 1201-7, 5-3, 84168-7, SYPH #### [facility] CLIA [id number] [address] [place] [address] [place] Lymphocytes (Bld) [#/Vol] 1.76 10*3/uL Normal 1.00-4.00 [facility] Comment on above: Order Comment: Speci men Type: BLOOD SPECIMEN Ordering Facility: [facility] Address: [address] [place] [address] Performed By: #### 3 1201-7, 5194-3, 91780-2, SYPH #### [facility] CLIA [id number] [address] [place] [address] [place] Lymphocytes/100 WBC (Bld) 10.7 % Normal [facility] Comment on above: Order Comment: Speci men Type: BLOOD SPECIMEN Ordering Facility: [facility] Address: [address] [place] [address] Performed By: #### 3 1201-7, 5-3, 62129-4, SYPH #### [facility] CLIA [id number] [address] [place] [address] [place] MCH (RBC) [Entitic mass] 29.7 pg Normal 26.0-34.0 [facility] Comment on above: Order Comment: Speci men Type: BLOOD SPECIMEN Ordering Facility: [facility] Address: [address] [place] [address] Performed By: #### 3 1201-7, 5-3, 22419-9, SYPH #### [facility] CLIA [id number] [address] [place] [address] [place] MCHC (RBC) [Mass/Vol] 31.3 g/dL Normal 30.5-36.0 [facility] Comment on above: Order Comment: Speci men Type: BLOOD SPECIMEN Ordering Facility: [facility] Address: [address] [place] [address] Performed By: #### 3 1201-7, 5195-3, 24598-8, SYPH #### [facility] CLIA [id number] [address] [place] [address] [place] MCV (RBC) [Entitic vol] 95.0 fL Normal 80.0-100.0 [facility] Comment on above: Order Comment: Speci men Type: BLOOD SPECIMEN [facility]ing Facility: [facility] [facility] Address: [address] [place] [address] Performed By: #### 3 1201-7, 5195-3, 86166-0, SYPH #### [facility] CLIA [id number] [address] [place] [address] [place] Monocytes (Bld) [#/Vol] 0.77 10*3/uL Normal <0.87 [facility] Comment on above: Order Comment: Speci men Type: BLOOD SPECIMEN Ordering Facility: [facility] Address: [address] [place] [address] Performed By: #### 3 1201-7, 5-3, 45080-9, SYPH #### [facility] CLIA [id number] [address] [place] [address] [place] Monocytes/100 WBC (Bld) 4.7 % Normal [facility] Comment on above: Order Comment: Speci men Type: BLOOD SPECIMEN Ordering Facility: [facility] Address: [address] [place] [address] Performed By: #### 3 1201-7, 5195-3, 55131-6, SYPH #### [facility] CLIA [id number] [address] [place] [address] [place] Neutrophils (Bld) [#/Vol] 13.71 10*3/uL High 1.45-7.50 [facility] Comment on above: Order Comment: Speci men Type: BLOOD SPECIMEN Ordering Facility: [facility] Address: [address] [place] [address] Performed By: #### 3 1201-7, 5195-3, 43729-9, SYPH #### [facility] CLIA [id number] [address] [place] [address] [place] Neutrophils/100 WBC (Bld) 83.3 % Normal [facility] Comment on above: Order Comment: Speci men Type: BLOOD SPECIMEN Ordering Facility: [facility] Address: [address] [place] [address] Performed By: #### 3 1201-7, 5195-3, 45029-3, SYPH #### [facility] CLIA [id number] [address] [place] [address] [place] Nucleated RBC (Bld) [#/Vol] 10*3/uL Normal <0.01 [facility] Comment on above: Order Comment: Speci men Type: BLOOD SPECIMEN Ordering Facility: [facility] Address: [address] [place] [address] Performed By: #### 3 1201-7, 5-3, 25262-9, SYPH #### [facility] CLIA [id number] [address] [place] [address] [place] Nucleated RBC/100 WBC (Bld) [Ratio] 0.0 /100 WBC Normal [facility] Comment on above: Order Comment: Speci men Type: BLOOD SPECIMEN Ordering Facility: [facility] Address: [address] [place] [address] Performed By: #### 3 1201-7, 5195-3, 16052-4, SYPH #### [facility] CLIA [id number] [address] [place] [address] [place] Platelet mean volume (Bld) [Entitic vol] 12.4 fL Normal 9.0-12.7 [facility] Comment on above: Order Comment: Speci men Type: BLOOD SPECIMEN Ordering Facility: [facility] Address: [place] [phone] Performed By: #### 3 1201-7, 5195-3, 27508-6, SYPH #### [facility] CLIA [id number] [address] [place] [address] [place] Platelets (Bld) [#/Vol] 144 10*3/uL Low 150-400 [facility] Comment on above: Order Comment: Speci men Type: BLOOD SPECIMEN Ordering Facility: [facility] Address: [address] [place] [phone] Performed By: #### 3 1201-7, 5195-3, 19200-5, SYPH #### [facility] CLIA [id number] [address] [place], [place] [address] [place] RBC (Bld) [#/Vol] 3.97 10*6/uL Normal 3.90-5.20 [facility] Comment on above: Order Comment: Speci men Type: BLOOD SPECIMEN Ordering Facility: [facility] Address: [address] [place] [phone] Performed By: #### 3 1201-7, 5195-3, 23537-6, SYPH #### [facility] CLIA [id number] [address] [place], [place] [address] [place] WBC (Bld) [#/Vol] 16.45 10*3/uL High 3.70-11.00 [facility] Comment on above: Order Comment: Speci men Type: BLOOD SPECIMEN Ordering Facility: [facility] Address: [address] [facility] [phone] Performed By: #### 3 1201-7, 5195-3, 31123-8, SYPH #### [facility] CLIA [id number] [address] [place] [address] [facility] [place] Comprehensive metabolic 2000 panelon 02-03-2023 Albumin [Mass/Vol] 3.5 g/dL Normal 3.2-5.0 [facility] Comment on above: Order Comment: Speci men Type: BLOOD SPECIMEN Ordering Facility: [facility] Address: [address] [place] [address] Performed By: #### 3 1201-7, 5-3, 11652-1, SYPH #### [facility] CLIA [id number] [address] [place] [address] [place] ALP [Catalytic activity/Vol] 82 U/L Normal 45-117 [facility] Comment on above: Order Comment: Speci men Type: BLOOD SPECIMEN Ordering Facility: [facility] Address: [address] [place] [address] Performed By: #### 3 1201-7, 5194-3, , SYPH #### [facility] CLIA [id number] [address] [place] [address] [place] ALT [Catalytic activity/Vol] 19 U/L Normal 13-61 [facility] Comment on above: Order Comment: Speci men Type: BLOOD SPECIMEN Ordering Facility: [facility] Address: [address] [place] [address] Result Comment: Resu lts may be falsely depressed after the administration of Sulfasalazine and/or Sulfapyridine. Performed By: #### 3 1201-7, 5-3, 72845-2, SYPH #### [facility] CLIA [id number] [address] [place] [address] [place] Anion gap [Moles/Vol] 17 mmol/L High 5-16 [facility] Comment on above: Order Comment: Speci men Type: BLOOD SPECIMEN Ordering Facility: [facility] Address: [address] [place] [address] Performed By: #### 3 1201-7, 5194-3, 83287-2, SYPH #### [facility] CLIA [id number] [address] [place] [address] [place] AST [Catalytic activity/Vol] Normal [facility] Comment on above: Order Comment: Speci men Type: BLOOD SPECIMEN Ordering Facility: [facility] Address: [address] [place] [address] Result Comment: Unab le to assay due to interference from hemolysis. Suggest reorder as clinically indicated. Critical or Urgent Result(s) Called at: 04:33:47 on 02/03/2023 by mb. Called to and read back by: CLOVIS Results may be falsely depressed after the administration of Sulfasalazine and/or Sulfapyridine. Performed By: #### 3 1201-7, 5195-3, 88804-8, SYPH #### [facility] CLIA [id number] [address] [place] [address] [place] Bilirubin [Mass/Vol] 1.0 mg/dL Normal 0.2-1.0 [facility] Comment on above: Order Comment: Jon russ Type: BLOOD SPECIMEN Ordering Facility: [facility] Address: [address] [place] [address] Performed By: #### 3 1201-7, 5195-3, 88228-0, SYPH #### [facility] CLIA [id number] [address] [place] [address] [place] Calcium [Mass/Vol] 8.5 mg/dL Normal 8.5-10.5 [facility] Comment on above: Order Comment: Jon russ Type: BLOOD SPECIMEN Ordering Facility: [facility] Address: [address] [place] [address] Performed By: #### 3 1201-7, 5195-3, 36850-6, SYPH #### [facility] CLIA [id number] [address] [place] [address] [place] Chloride [Moles/Vol] 109 mmol/L High 98-107 [facility] Comment on above: Order Comment: Speci men Type: BLOOD SPECIMEN Ordering Facility: [facility] Address: [address] [place] [address] Performed By: #### 3 1201-7, 5195-3, 15700-0, SYPH #### [facility] CLIA [id number] [address] [place] [address] [place] CO2 [Moles/Vol] 12 mmol/L Low 21-32 [facility] Comment on above: Order Comment: Jon russ Type: BLOOD SPECIMEN Ordering Facility: [facility] Address: [address] [place] [address] Performed By: #### 3 1201-7, 5195-3, 49198-7, SYPH #### [facility] CLIA [id number] [address] [place] [address] [place] Creatinine [Mass/Vol] 0.64 mg/dL Normal 0.51-0.95 [facility] Comment on above: Order Comment: Speci jeb Type: BLOOD SPECIMEN Ordering Facility: [facility] Address: [address] [place] [address] Result Comment: Cleopatra ents receiving either N-Acetylcysteine (NAC) or Metamizole prior to venipuncture, may have falsely depressed results. Performed By: #### 3 1201-7, 5195-3, 15171-6, SYPH #### [facility] CLIA [id number] [address] [place] [address] [place] ESTIMATED GLOMERULAR FILTRATION RATE 124 mL/min/1.73m??? Normal >=60 [facility] Comment on above: Order Comment: Belindai jeb Type: BLOOD SPECIMEN Ordering Facility: [facility] Address: [address] [place] [address] Result Comment: Janett mated Glomerular Filtration Rate [...] GFR. Performed By: #### 3 1201-7, 5195-3, 62678-5, SYPH #### [facility] CLIA [id number] [address] [place], [place] [address] [place] Glucose [Mass/Vol] 252 mg/dL High 70-100 [facility] Comment on above: Order Comment: Speci men Type: BLOOD SPECIMEN Ordering Facility: [facility] Address: [address] [place], [place] [phone] Result Comment: The [place] [employer] (ADA) provides guidance for cutoff [...] Standards of Medical Care in Diabetes 2016, [place] [employer]. Diabetes Care. 2016.39(Suppl 1). Results may be falsely elevated after the administration of Sulfapyridine. Results may be falsely depressed after the administration of Sulfasalazine. Performed By: #### 3 1201-7, 5195-3, 15114-1, SYPH #### [facility] CLIA [id number] [address] [place] [address] [place] Potassium [Moles/Vol] Normal [facility] Comment on above: Order Comment: Jon russ Type: BLOOD SPECIMEN Ordering Facility: [facility] Address: [address] [place], [place] [phone] Result Comment: Unab le to assay due to interference from hemolysis. Suggest reorder as clinically indicated. Critical or Urgent Result(s) Called at: 04:33:11 on 02/03/2023 by milly. Called to and read back by: CLOVIS Performed By: #### 3 1201-7, 5195-3, 25350-8, SYPH #### [facility] CLIA [id number] [address] [place] [address] [place] Protein [Mass/Vol] 5.8 g/dL Low 6.0-8.5 [facility] Comment on above: Order Comment: Jon russ Type: BLOOD SPECIMEN Ordering Facility: [facility] Address: [address] [place], [place] [phone] Performed By: #### 3 1201-7, 5195-3, 04406-2, SYPH #### [facility] CLIA [id number] [address] [place], [place] [address] [place] Sodium [Moles/Vol] 138 mmol/L Normal 136-145 [facility] Comment on above: Order Comment: Speci men Type: BLOOD SPECIMEN Ordering Facility: [facility] Address: [address] [place], [place] [phone] Performed By: #### 3 1201-7, 5195-3, 56645-3, SYPH #### [facility] CLIA [id number] [address] [place], [place] [address] [place] Urea nitrogen [Mass/Vol] 10 mg/dL Normal 7- [facility] Comment on above: Order Comment: Speci men Type: BLOOD SPECIMEN Ordering Facility: [facility] Address: [address] [place], [place] [phone] Performed By: #### 3 1201-7, 5195-3, 16878-5, SYPH #### [facility] CLIA [id number] [address] [place], [place] [address] [place] Magnesium SerPl-mCncon 02-03 Magnesium [Mass/Vol] 1.8 mg/dL Normal 1.6-2.6 [facility] Comment on above: Order Comment: Speci men Type: BLOOD SPECIMEN Ordering Facility: [facility] Address: [address] [place], [place] [phone] Performed By: #### 3 1201-7, 5195-3, 07620-5, SYPH #### [facility] CLIA [id number] [address] [place], [place] [address] [place] Basic metabolic 2000 panelon 02-02-2023 Anion gap [Moles/Vol] 17 mmol/L High 5-16 [facility] Comment on above: Order Comment: Speci men Type: BLOOD SPECIMEN Ordering Facility: [facility] Address: [address] [place], [place] [phone] Performed By: #### 3 1201-7, 5195-3, 61084-3, SYPH #### [facility] CLIA [id number] [address] [place], [place] [address] [place] Calcium [Mass/Vol] 8.0 mg/dL Low 8.5-10.5 [facility] Comment on above: Order Comment: Speci men Type: BLOOD SPECIMEN Ordering Facility: [facility] Address: [address] [place] [address] Performed By: #### 3 1201-7, 5195-3, 02296-5, SYPH #### [facility] CLIA [id number] [address] [place] [address] [place] Chloride [Moles/Vol] 108 mmol/L High 98-107 [facility] Comment on above: Order Comment: Speci men Type: BLOOD SPECIMEN Ordering Facility: [facility] Address: [address] [place] [address] Performed By: #### 3 1201-7, 5193, , SYPH #### [facility] CLIA [id number] [address] [place] [address] [place] CO2 [Moles/Vol] 13 mmol/L Low 21-32 [facility] Comment on above: Order Comment: Speci men Type: BLOOD SPECIMEN Ordering Facility: [facility] Address: [address] [place] [address] Performed By: #### 3 1201-7, 5195-3, 68482-2, SYPH #### [facility] CLIA [id number] [address] [place], [place] [address] [place] Creatinine [Mass/Vol] 0.69 mg/dL Normal 0.51-0.95 [facility] Comment on above: Order Comment: Speci men Type: BLOOD SPECIMEN Ordering Facility: [facility] Address: [address] [place] [address] Result Comment: Cleopatra ents receiving either N-Acetylcysteine (NAC) or Metamizole prior to venipuncture, may have falsely depressed results. Performed By: #### 3 1201-7, 5195-3, 88142-6, SYPH #### [facility] CLIA [id number] [address] [place] [address] [place] ESTIMATED GLOMERULAR FILTRATION RATE 121 mL/min/1.73m??? Normal >=60 [facility] Comment on above: Order Comment: Jon russ Type: BLOOD SPECIMEN Ordering Facility: [facility] Address: [address] [place] [address] Result Comment: Janett mated Glomerular Filtration Rate [...] GFR. Performed By: #### 3 1201-7, 5195-3, 52846-8, SYPH #### [facility] CLIA [id number] [address] [place] [address] [place] Glucose [Mass/Vol] 251 mg/dL High 70-100 [facility] Comment on above: Order Comment: Jon russ Type: BLOOD SPECIMEN Ordering Facility: [facility] Address: [address] [place] [address] Result Comment: The [place] Diabetes Association (ADA) provides guidance for cutoff [...] Standards of Medical Care in Diabetes 2016, [place] [employer]. Diabetes Care. 2016.39(Suppl 1). Results may be falsely elevated after the administration of Sulfapyridine. Results may be falsely depressed after the administration of Sulfasalazine. Performed By: #### 3 1201-7, 5194-3, 52699-4, SYPH #### [facility] CLIA [id number] [address] [place], [place] [address] [place] Potassium [Moles/Vol] 4.4 mmol/L Normal 3.5-5.1 [facility] Comment on above: Order Comment: Speci men Type: BLOOD SPECIMEN Ordering Facility: [facility] Address: [address] [place] [address] Performed By: #### 3 1201-7, 5194-3, 52536-3, SYPH #### [facility] CLIA [id number] [address] [place], [place] [address] [place] Sodium [Moles/Vol] 138 mmol/L Normal 136-145 [facility] Comment on above: Order Comment: Speci men Type: BLOOD SPECIMEN Ordering Facility: [facility] Address: [address] [place] [address] Performed By: #### 3 1201-7, 3, , SYPH #### [facility] CLIA [id number] [address] [place] [address] [place] Urea nitrogen [Mass/Vol] 12 mg/dL Normal 7-26 [facility] Comment on above: Order Comment: Speci men Type: BLOOD SPECIMEN Ordering Facility: [facility] Address: [address] [place] [address] Performed By: #### 3 1201-7, 3, 16080-6, SYPH #### [facility] CLIA [id number] [address] [place], [place] [address] [place] Anion gap [Moles/Vol] 15 mmol/L Normal 5-16 [facility] Comment on above: Order Comment: Speci men Type: BLOOD SPECIMEN Ordering Facility: [facility] Address: [address] [place] [address] Performed By: #### 3 1201-7, 5194-3, 96950-1, SYPH #### [facility] CLIA [id number] [address] [place], [place] [address] [place] Calcium [Mass/Vol] 8.2 mg/dL Low 8.5-10.5 [facility] Comment on above: Order Comment: Speci men Type: BLOOD SPECIMEN Ordering Facility: [facility] Address: [address] [place] [address] Performed By: #### 3 1201-7, 5195-3, 91837-3, SYPH #### [facility] CLIA [id number] [address] [place] [address] [place] Chloride [Moles/Vol] 113 mmol/L High 98-107 [facility] Comment on above: Order Comment: Speci men Type: BLOOD SPECIMEN Ordering Facility: [facility] Address: [address] [place] [address] Performed By: #### 3 1201-7, 5195-3, 14827-3, SYPH #### [facility] CLIA [id number] [address] [place] [address] [place] CO2 [Moles/Vol] 11 mmol/L Low 21-32 [facility] Comment on above: Order Comment: Speci men Type: BLOOD SPECIMEN Ordering Facility: [facility] Address: [address] [place] [address] Performed By: #### 3 1201-7, 5195-3, 19002-1, SYPH #### [facility] CLIA [id number] [address] [place] [address] [place] [facility] Creatinine [Mass/Vol] 0.77 mg/dL Normal 0.51-0.95 [facility] Comment on above: Order Comment: Speci men Type: BLOOD SPECIMEN Ordering Facility: [facility] Address: [address] [place] [address] Result Comment: Cleopatra ents receiving either N-Acetylcysteine (NAC) or Metamizole prior to venipuncture, may have falsely depressed results. Performed By: #### 3 1201-7, 5195-3, 99975-3, SYPH #### [facility] CLIA [id number] [address] [place] [address] [place] [facility] ESTIMATED GLOMERULAR FILTRATION RATE 108 mL/min/1.73m??? Normal >=60 [facility] Comment on above: Order Comment: Jon russ Type: BLOOD SPECIMEN Ordering Facility: [facility] Address: [address] [place], [place] [phone] Result Comment: Janett mated Glomerular Filtration Rate [...] GFR. Performed By: #### 3 1201-7, 5195-3, 97755-1, SYPH #### [facility] CLIA [id number] [address] [place], [place] [address] [place] Glucose [Mass/Vol] 253 mg/dL High 70-100 [facility] Comment on above: Order Comment: Jon russ Type: BLOOD SPECIMEN Ordering Facility: [facility] Address: [address] [place], [place] [phone] Result Comment: The [place] Diabetes Association (ADA) provides guidance for cutoff [...] Standards of Medical Care in Diabetes 2016, [place] [employer]. Diabetes Care. 2016.39(Suppl 1). Results may be falsely elevated after the administration of Sulfapyridine. Results may be falsely depressed after the administration of Sulfasalazine. Performed By: #### 3 1201-7, 5195-3, 54635-7, SYPH #### [facility] CLIA [id number] [address] [place] [address] [place] Potassium [Moles/Vol] 4.6 mmol/L Normal 3.5-5.1 [facility] Comment on above: Order Comment: Speci men Type: BLOOD SPECIMEN Ordering Facility: [facility] Address: [address] [address] Performed By: #### 3 1201-7, 5195-3, 22928-1, SYPH #### [facility] CLIA [id number] [address] [place] [address] [place] Sodium [Moles/Vol] 139 mmol/L Normal 136-145 [facility] Comment on above: Order Comment: Speci men Type: BLOOD SPECIMEN Ordering Facility: [facility] Address: [address] [place] [address] Performed By: #### 3 1201-7, 5195-3, 70674-6, SYPH #### [facility] CLIA [id number] [address] [place] [address] [place] Urea nitrogen [Mass/Vol] 18 mg/dL Normal 7-26 [facility] Comment on above: Order Comment: Speci men Type: BLOOD SPECIMEN Ordering Facility: [facility] Address: [address] [place] [address] Performed By: #### 3 1201-7, 5195-3, 10993-0, SYPH #### [facility] CLIA [id number] [address] [place] [address] [place] Anion gap [Moles/Vol] 19 mmol/L High 5-16 [facility] Comment on above: Order Comment: Speci men Type: SWAB Ordering Facility: [facility] Address: [address] [place] [address] Performed By: #### 3 6902-5 #### [facility] CLIA [id number] [address] [place] [address] [place] Calcium [Mass/Vol] 8.6 mg/dL Normal 8.5-10.5 [facility] Comment on above: Order Comment: Speci men Type: SWAB Ordering Facility: [facility] Address: [address] [place] [id number] Performed By: #### 3 6902-5 #### [facility] CLIA [id number] [address] [place] [address] [place] Chloride [Moles/Vol] 108 mmol/L High 98-107 [facility] Comment on above: Order Comment: Speci men Type: SWAB Ordering Facility: [facility] Address: [address] [place] [address] Performed By: #### 3 6902-5 #### [facility] CLIA [id number] [address] [place] [address] [place] CO2 [Moles/Vol] 9 mmol/L Low 21-32 [facility] Comment on above: Order Comment: Speci men Type: SWAB Ordering Facility: [facility] Address: [address] [place] [address] Result Comment: Crit ical or Urgent Result(s) Called at: 10:32:16 on 02/02/2023 by [facility]. Called to and read back by: Billie SALEEM Performed By: #### 3 6902-5 #### [facility] CLIA [id number] [address] [place] [address] [place] Creatinine [Mass/Vol] 0.82 mg/dL Normal 0.51-0.95 [facility] Comment on above: Order Comment: Speci men Type: SWAB Ordering Facility: [facility] Address: [address] [place] [address] Result Comment: Cleopatra ents receiving either N-Acetylcysteine (NAC) or Metamizole prior to venipuncture, may have falsely depressed results. Performed By: #### 3 6902-5 #### [facility] CLIA [id number] [address] [place] [address] [place] ESTIMATED GLOMERULAR FILTRATION RATE 100 mL/min/1.73m??? Normal >=60 [facility] Comment on above: Order Comment: Speci men Type: SWAB Ordering Facility: [facility] Address: [address] [place] [address] Result Comment: Janett mated Glomerular Filtration Rate [...] GFR. Performed By: #### 3 6902-5 #### [facility] CLIA [id number] [address] [place] [address] [place] Glucose [Mass/Vol] 336 mg/dL High 70-100 [facility] Comment on above: Order Comment: Speci men Type: SWAB Ordering Facility: [facility] Address: [address] [address] Result Comment: The [place] Diabetes Association (ADA) provides guidance for cutoff [...] Standards of Medical Care in Diabetes 2016, [place] [employer]. Diabetes Care. 2016.39(Suppl 1). Results may be falsely elevated after the administration of Sulfapyridine. Results may be falsely depressed after the administration of Sulfasalazine. Performed By: #### 3 6902-5 #### [facility] CLIA [id number] [address] [place] [address] [place] Potassium [Moles/Vol] Normal [facility] Comment on above: Order Comment: Speci jeb Type: SWAB Ordering Facility: [facility] Address: [address] [address] Result Comment: Unab le to assay due to interference from hemolysis. Suggest reorder as clinically indicated. Spoke to P.Rosalba RN Performed By: #### 3 6902-5 #### [facility] CLIA [id number] [address] [place] [address] [place] Sodium [Moles/Vol] 136 mmol/L Normal 136-145 [facility] Comment on above: Order Comment: Speci men Type: SWAB Ordering Facility: [facility] Address: [address] [address] Performed By: #### 3 6902-5 #### [facility] CLIA [id number] [address] [place] [address] [place] Urea nitrogen [Mass/Vol] 19 mg/dL Normal 7-26 [facility] Comment on above: Order Comment: Speci men Type: SWAB Ordering Facility: [facility] Address: [address] [place] [address] Performed By: #### 3 6902-5 #### [facility] CLIA [id number] [address] [place] [address] [place] Anion gap [Moles/Vol] 18 mmol/L High 5-16 [facility] Comment on above: Order Comment: Speci men Type: SWAB Ordering Facility: [facility] Address: [address] [place] [address] Performed By: #### 3 6902-5 #### [facility] CLIA [id number] [address] [place] [address] [place] Calcium [Mass/Vol] 8.6 mg/dL Normal 8.5-10.5 [facility] Comment on above: Order Comment: Speci men Type: SWAB Ordering Facility: [facility] Address: [address] [address] Performed By: #### 3 6902-5 #### [facility] CLIA [id number] [address] [place] [address] [place] Chloride [Moles/Vol] 108 mmol/L High 98-107 [facility] Comment on above: Order Comment: Speci men Type: SWAB Ordering Facility: [facility] Address: [address] [place] [address] Performed By: #### 3 6902-5 #### [facility] CLIA [id number] [address] [place] [address] [place] CO2 [Moles/Vol] 12 mmol/L Low 21-32 [facility] Comment on above: Order Comment: Speci men Type: SWAB Ordering Facility: [facility] Address: [address] [address] Performed By: #### 3 6902-5 #### [facility] CLIA [id number] [address] [place] [address] [place] Creatinine [Mass/Vol] 0.75 mg/dL Normal 0.51-0.95 [facility] Comment on above: Order Comment: Speci men Type: SWAB Ordering Facility: [facility] Address: [address] [place] [address] Result Comment: Cleopatra ents receiving either N-Acetylcysteine (NAC) or Metamizole prior to venipuncture, may have falsely depressed results. Performed By: #### 3 6902-5 #### [facility] CLIA [id number] [address] [place] [address] [place] [facility] ESTIMATED GLOMERULAR FILTRATION RATE 111 mL/min/1.73m??? Normal >=60 [facility] Comment on above: Order Comment: Speci men Type: SWAB Ordering Facility: [facility] Address: [address] [place] [address] Result Comment: Janett mated Glomerular Filtration Rate [...] GFR. Performed By: #### 3 6902-5 #### [facility] CLIA [id number] [address] [place] [address] [place] Glucose [Mass/Vol] 421 mg/dL High 70-100 [facility] Comment on above: Order Comment: Speci men Type: SWAB Ordering Facility: [facility] Address: [address] [place] [address] Result Comment: The [place] Diabetes Association (ADA) provides guidance for cutoff [...] Standards of Medical Care in Diabetes 2016, [place] [employer]. Diabetes Care. 2016.39(Suppl 1). Results may be falsely elevated after the administration of Sulfapyridine. Results may be falsely depressed after the administration of Sulfasalazine. Performed By: #### 3 6902-5 #### [facility] CLIA [id number] [address] [place] [address] [place] Potassium [Moles/Vol] 4.8 mmol/L Normal 3.5-5.1 [facility] Comment on above: Order Comment: Speci men Type: SWAB Ordering Facility: [facility] Address: [address] [place] [address] Performed By: #### 3 6902-5 #### [facility] CLIA [id number] [address] [place] [address] [place] Sodium [Moles/Vol] 138 mmol/L Normal 136-145 [facility] Comment on above: Order Comment: Speci men Type: SWAB Ordering Facility: [facility] Address: [address] [place] [address] Performed By: #### 3 6902-5 #### [facility] CLIA [id number] [address] [place] [address] [place] Urea nitrogen [Mass/Vol] 20 mg/dL Normal 7-26 [facility] Comment on above: Order Comment: Speci men Type: SWAB Ordering Facility: [facility] Address: [address] [address] Performed By: #### 3 6902-5 #### [facility] CLIA [id number] [address] [place] [address] [place] CBC W Auto Differential pane l (Bld)on 02-02-2023 Basophils (Bld) [#/Vol] 0.03 10*3/uL Normal <0.11 [facility] Comment on above: Order Comment: Speci men Type: BLOOD SPECIMEN Ordering Facility: [facility] Address: [address] [place] [address] Performed By: #### 3 1201-7, 5195-3, 50984-0, SYPH #### [facility] CLIA [id number] [address] [place] [address] [place] Basophils/100 WBC (Bld) 0.1 % Normal [facility] Comment on above: Order Comment: Speci men Type: BLOOD SPECIMEN Ordering Facility: [facility] Address: [address] [place] [address] Performed By: #### 3 1201-7, 5195-3, 85767-7, SYPH #### [facility] CLIA [id number] [address] [place] [address] [place] Differential cell count method Nom (Bld) Auto Normal [facility] Comment on above: Order Comment: Speci men Type: BLOOD SPECIMEN Ordering Facility: [facility] Address: [address] [address] Performed By: #### 3 1201-7, 5195-3, 14425-2, SYPH #### [facility] CLIA [id number] [address] [place] [address] [place] Eosinophils (Bld) [#/Vol] 10*3/uL Normal <0.46 [facility] Comment on above: Order Comment: Speci men Type: BLOOD SPECIMEN Ordering Facility: [facility] Address: [address] [place] [address] Performed By: #### 3 1201-7, 5195-3, 00392-2, SYPH #### [facility] CLIA [id number] [address] [place] [address] [place] Eosinophils/100 WBC (Bld) 0.0 % Normal [facility] Comment on above: Order Comment: Speci men Type: BLOOD SPECIMEN Ordering Facility: [facility] Address: [address] [address] Performed By: #### 3 1201-7, 5-3, 20263-9, SYPH #### [facility] CLIA [id number] [address] [place] [address] [place] Erythrocyte distribution width (RBC) [Ratio] 14.0 % Normal 11.5-15.0 [facility] Comment on above: Order Comment: Speci men Type: BLOOD SPECIMEN Ordering Facility: [facility] Address: [address] [place] [address] Performed By: #### 3 1201-7, 5194-3, 29670-9, SYPH #### [facility] CLIA [id number] [address] [place] [address] [place] Hematocrit (Bld) [Volume fraction] 33.8 % Low 36.0-46.0 [facility] Comment on above: Order Comment: Speci men Type: BLOOD SPECIMEN Ordering Facility: [facility] Address: [address] [place] [address] Performed By: #### 3 1201-7, 5195-3, 52389-7, SYPH #### [facility] CLIA [id number] [address] [place] [address] [place] Hemoglobin (Bld) [Mass/Vol] 10.8 g/dL Low 11.5-15.5 [facility] Comment on above: Order Comment: Speci men Type: BLOOD SPECIMEN Ordering Facility: [facility] Address: [address] [place] [address] Performed By: #### 3 1201-7, 5195-3, 04482-1, SYPH #### [facility] CLIA [id number] [address] [place] [address] [place] Immature granulocytes (Bld) [#/Vol] 0.19 10*3/uL High <0.10 [facility] Comment on above: Order Comment: Speci men Type: BLOOD SPECIMEN Ordering Facility: [facility] Address: [address] [place] [address] Performed By: #### 3 1201-7, 5195-3, 44622-4, SYPH #### [facility] CLIA [id number] [address] [place] [address] [place] Immature granulocytes/100 WBC (Bld) 0.9 % Normal [facility] Comment on above: Order Comment: Speci men Type: BLOOD SPECIMEN Ordering Facility: [facility] Address: [address] [place] [address] Performed By: #### 3 1201-7, 5195-3, 28257-9, SYPH #### [facility] CLIA [id number] [address] [place] [address] [place] Lymphocytes (Bld) [#/Vol] 2.41 10*3/uL Normal 1.00-4.00 [facility] Comment on above: Order Comment: Speci men Type: BLOOD SPECIMEN Ordering Facility: [facility] Address: [address] [place] [address] Performed By: #### 3 1201-7, 5-3, 30493-5, SYPH #### [facility] CLIA [id number] [address] [place] [address] [place] Lymphocytes/100 WBC (Bld) 11.6 % Normal [facility] Comment on above: Order Comment: Speci men Type: BLOOD SPECIMEN Ordering Facility: [facility] Address: [address] [place] [address] Performed By: #### 3 1201-7, 5195-3, 92957-3, SYPH #### [facility] CLIA [id number] [address] MCH (RBC) [Entitic mass] 29.1 pg Normal 26.0-34.0 [facility] Comment on above: Order Comment: Speci men Type: BLOOD SPECIMEN Ordering Facility: [facility] Address: [address] [place] [address] Performed By: #### 3 1201-7, 5195-3, 96089-2, SYPH #### [facility] CLIA [id number] [address] [place] [address] OF [facility] MCHC (RBC) [Mass/Vol] 32.0 g/dL Normal 30.5-36.0 [facility] Comment on above: Order Comment: Speci men Type: BLOOD SPECIMEN Ordering Facility: [facility] Address: [address] [place] [address] Performed By: #### 3 1201-7, 5195-3, 65503-1, SYPH #### [facility] CLIA [id number] [address] [place] [address] OF [facility] MCV (RBC) [Entitic vol] 91.1 fL Normal 80.0-100.0 [facility] Comment on above: Order Comment: Speci men Type: BLOOD SPECIMEN Ordering Facility: [facility] Address: [address] [place] [address] Performed By: #### 3 1201-7, 5195-3, 81813-7, SYPH #### [facility] CLIA [id number] [address] [place] [address] [place] Monocytes (Bld) [#/Vol] 0.93 10*3/uL High <0.87 [facility] Comment on above: Order Comment: Speci men Type: BLOOD SPECIMEN Ordering Facility: [facility] Address: [address] [place] [address] Performed By: #### 3 1201-7, 5195-3, 35562-9, SYPH #### [facility] CLIA [id number] [address] [place] [address] Monocytes/100 WBC (Bld) 4.5 % Normal [facility] Comment on above: Order Comment: Speci men Type: BLOOD SPECIMEN Ordering Facility: [facility] Address: [address] [address] Performed By: #### 3 1201-7, 5195-3, 67160-6, SYPH #### [facility] CLIA [id number] [address] [place] [address] [place] Neutrophils (Bld) [#/Vol] 17.17 10*3/uL High 1.45-7.50 [facility] Comment on above: Order Comment: Speci men Type: BLOOD SPECIMEN Ordering Facility: [facility] Address: [address] [place] [address] Performed By: #### 3 1201-7, 5195-3, 94805-0, SYPH #### [facility] CLIA [id number] [address] [place] [address] [place] Neutrophils/100 WBC (Bld) 82.9 % Normal [facility] Comment on above: Order Comment: Speci men Type: BLOOD SPECIMEN Ordering Facility: [facility] Address: [address] [place] [address] Performed By: #### 3 1201-7, 5-3, 02669-8, SYPH #### [facility] CLIA [id number] [address] [place] [address] [place] Nucleated RBC (Bld) [#/Vol] 10*3/uL Normal <0.01 [facility] Comment on above: Order Comment: Speci men Type: BLOOD SPECIMEN Ordering Facility: [facility] Address: [address] [place] [address] Performed By: #### 3 1201-7, 5195-3, 03542-9, SYPH #### [facility] CLIA [id number] [address] [place] [address] [place] Nucleated RBC/100 WBC (Bld) [Ratio] 0.0 /100 WBC Normal [facility] Comment on above: Order Comment: Speci men Type: BLOOD SPECIMEN Ordering Facility: [facility] Address: [address] Performed By: #### 3 1201-7, 5195-3, 75037-5, SYPH #### [facility] CLIA [id number] [address] [place] [address] [place] Platelet mean volume (Bld) [Entitic vol] 12.0 fL Normal 9.0-12.7 [facility] Comment on above: Order Comment: Speci men Type: BLOOD SPECIMEN Ordering Facility: [facility] Address: [address] Performed By: #### 3 1201-7, 5195-3, 72582-1, SYPH #### [facility] CLIA [id number] [address] [place] [address] [place] Platelets (Bld) [#/Vol] 164 10*3/uL Normal 150-400 [facility] Comment on above: Order Comment: Speci men Type: BLOOD SPECIMEN Ordering Facility: [facility] Address: [address] Performed By: #### 3 1201-7, 5195-3, 83568-5, SYPH #### [facility] CLIA [id number] [address] [place] [address] [place] RBC (Bld) [#/Vol] 3.71 10*6/uL Low 3.90-5.20 [facility] Comment on above: Order Comment: Speci men Type: BLOOD SPECIMEN Ordering Facility: [facility] Address: [address] [id number] Performed By: #### 3 1201-7, 5195-3, 67393-6, SYPH #### [facility] CLIA [id number] [address] [place] [address] [place] WBC (Bld) [#/Vol] 20.73 10*3/uL High 3.70-11.00 [facility] Comment on above: Order Comment: Speci men Type: BLOOD SPECIMEN Ordering Facility: [facility] Address: [address] [address] Performed By: #### 3 1201-7, 5195-3, 04543-9, SYPH #### [facility] CLIA [id number] [address] [place] [address] OF [place] Gas and Carbon monoxide pane l (BldV)on 02-02-2023 BASE DEFICIT, VENOUS -16 mmol/L Low -2-0 [facility] Comment on above: Order Comment: Speci men Type: SWAB Ordering Facility: [facility] Address: [address] [address] Performed By: #### 3 6902-5 #### [facility] CLIA [id number] [address] [place] [address] [place] Body temperature 98.6 [degF] Normal [facility] Comment on above: Order Comment: Speci men Type: SWAB Ordering Facility: [facility] Address: [address] [address] Performed By: #### 3 6902-5 #### [facility] CLIA [id number] [address] [place] [address] [place] Calcium.ionized (Bld) [Mass/Vol] 1.14 mmol/L Normal 1.08-1.30 [facility] Comment on above: Order Comment: Speci men Type: SWAB Ordering Facility: [facility] Address: [address] [address] Performed By: #### 3 6902-5 #### [facility] CLIA [id number] [address] [place] [address] [place] Carboxyhemoglobin (BldV) [Mass fraction] 1.0 % Normal 0.0-2.0 [facility] Comment on above: Order Comment: Speci men Type: SWAB Ordering Facility: [facility] Address: [address] [address] Result Comment: Carb oxyhemoglobin Reference Range for Smokers: 2.0-8.0% Performed By: #### 3 6902-5 #### [facility] CLIA [id number] [address] [place] [address] [place] CO2 (BldV) [Partial pressure] 22 mm[Hg] Low 42-55 [facility] Comment on above: Order Comment: Speci men Type: SWAB Ordering Facility: [facility] Address: [address] [address] Performed By: #### 3 6902-5 #### [facility] CLIA [id number] [address] [place] [address] [place] Glucose [Mass/Vol] 335 mg/dL High 60-105 [facility] Comment on above: Order Comment: Speci men Type: SWAB Ordering Facility: [facility] Address: [address] [place] [address] Performed By: #### 3 6902-5 #### [facility] CLIA [id number] [address] [place] [address] [place] HCO3 (Bld) [Moles/Vol] 9 mmol/L Low 24-28 [facility] Comment on above: Order Comment: Speci men Type: SWAB Ordering Facility: [facility] Address: [address] [place] [address] Performed By: #### 3 6902-5 #### [facility] [place] [id number] [address] [place] [address] [place] Hemoglobin (Bld) [Mass/Vol] 13.1 g/dL Normal 11.5-15.5 [facility] Comment on above: Order Comment: Speci men Type: SWAB Ordering Facility: [facility] Address: [address] [address] Performed By: #### 3 6902-5 #### [facility] CLIA [id number] [address] [place] [address] [place] Lactate [Moles/Vol] 1.8 mmol/L Normal 0.5-2.2 [facility] Comment on above: Order Comment: Speci men Type: SWAB Ordering Facility: [facility] Address: [address] [place] [address] Performed By: #### 3 6902-5 #### [facility] CLIA [id number] [address] [place] [address] [place] Methemoglobin (Bld) [Mass fraction] 0.3 % Normal 0.0-1.5 [facility] Comment on above: Order Comment: Speci men Type: SWAB Ordering Facility: [facility] Address: [address] [place] [address] Performed By: #### 3 6902-5 #### [facility] CLIA [id number] [address] [place] [address] [place] O2 THERAPY RA=Room Air Normal [facility] Comment on above: Order Comment: Speci men Type: SWAB Ordering Facility: [facility] Address: [address] [place] [address] Performed By: #### 3 6902-5 #### [facility] CLIA [id number] [address] [place] [address] [place] Oxygen (BldV) [Partial pressure] 93 mm[Hg] High 35-45 [facility] Comment on above: Order Comment: Speci men Type: SWAB Ordering Facility: [facility] Address: [address] [place] [address] Performed By: #### 3 6902-5 #### [facility] CLIA [id number] [address] [place] [address] [place] Oxyhemoglobin (BldV) [Mass fraction] 94 % Normal 4-98 [facility] [facility] Comment on above: Order Comment: Speci men Type: SWAB Ordering Facility: [facility] Address: [address] [place] [address] Performed By: #### 3 6902-5 #### [facility] CLIA [id number] [address] [place], [place] [address] [place] pH (BldV) 7.24 [pH] Low 7.32-7.42 [facility] Comment on above: Order Comment: Speci men Type: SWAB Ordering Facility: [facility] Address: [address] [place] [address] Performed By: #### 3 6902-5 #### [facility] CLIA [id number] [address] [place] [address] [place] Potassium [Moles/Vol] 5.3 mmol/L Normal 2.5-6.0 [facility] Comment on above: Order Comment: Speci men Type: SWAB Ordering Facility: [facility] Address: [address] [place] [phone] Performed By: #### 3 6902-5 #### [facility] CLIA [id number] [address] [place] [address] [place] Sodium [Moles/Vol] 131 mmol/L Low 136-144 [facility] Comment on above: Order Comment: Speci men Type: SWAB Ordering Facility: [facility] Address: [address] [phone] Performed By: #### 3 6902-5 #### [facility] CLIA [id number] [address] [place] [address] [place] HISTORY PHYSICALon HISTORY PHYSICAL HNO ID: [id number] Author: Yimi Leroy 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 Patient has a known history of diabetic gastroparesis. She follows in [facility]. She was admitted to [place]. Unfortunately she has not been tolerating p.o. [...] pump (JUSTIN (more content not included)... Normal [facility] KETONES/ACETONE/BHBon 2022 Beta hydroxybutyrate [Moles/Vol] >6.00 High 0.02-0.27 [facility] Comment on above: Order Comment: Speci men Type: SWAB Ordering Facility: [facility] Address: [address] [place], [place] [address] [place] [address] Result Comment: Bloo d ketone levels will vary depending on several factors (for example, food intake, alcohol intake and conditions such as ketoacidosis). Patients should be fasting 12 hours prior to collection. Patient samples with high levels of M-Protein (i.e. Gammopathy) may affect the accuracy of this assay. Performed By: #### 3 6902-5 #### [facility] CLIA [id number] [address] [place] [address] [place] Beta hydroxybutyrate [Moles/Vol] 5.70 mmol/L High 0.02-0.27 [facility] Comment on above: Order Comment: Jon [facility] Type: SWAB Ordering Facility: [facility] Address: [address] [place] [address] Result Comment: Bloo d ketone levels will vary depending on several factors (for example, food intake, alcohol intake and conditions such as ketoacidosis). Patients should be fasting 12 hours prior to collection. Patient samples with high levels of M-Protein (i.e. Gammopathy) may affect the accuracy of this assay. Performed By: #### 3 6902-5 #### [facility] CLIA [id number] [address] [place] [address] [place] Magnesium SerPl-mCncon 02-02 Magnesium [Mass/Vol] 2.3 mg/dL Normal 1.6-2.6 [facility] Comment on above: Order Comment: Jon russ Type: SWAB Ordering Facility: [facility] Address: [address] [place], [place] [phone] Performed By: #### 3 6902-5 #### [facility] CLIA [id number] [address] [place] [address] [place] Procalcitonin SerPl-mCncon 0 02-02-2023 Procalcitonin [Mass/Vol] 0.33 ng/mL Normal 0.00-0.50 [facility] Comment on above: Order Comment: Jon russ Type: BLOOD SPECIMEN Ordering Facility: [facility] Address: [address] [place], [place] [phone] Result Comment: PCT Concentration Interpretation PCT <=0.1 [...] shock. Performed By: #### 3 1201-7, 5195-3, 61151-3, SYPH #### [facility] CLIA [id number] [address] [place] [address] [place] Basic metabolic 2000 panelon 02-01-2023 Anion gap [Moles/Vol] 16 mmol/L Normal 5-16 [facility] Comment on above: Order Comment: Speci men Type: SWAB Ordering Facility: [facility] Address: [address] [place] [address] Performed By: #### 3 6902-5 #### [facility] CLIA [id number] [address] [place] [address] [place] Calcium [Mass/Vol] 8.4 mg/dL Low 8.5-10.5 [facility] Comment on above: Order Comment: Speci men Type: SWAB Ordering Facility: [facility] Address: [address] [place] [address] Performed By: #### 3 6902-5 #### [facility] CLIA [id number] [address] [place] [address] [place] Chloride [Moles/Vol] 108 mmol/L High 98-107 [facility] Comment on above: Order Comment: Speci men Type: SWAB Ordering Facility: [facility] Address: [address] [place] [address] Performed By: #### 3 6902-5 #### [facility] CLIA [id number] [address] [place] [address] [place] CO2 [Moles/Vol] 15 mmol/L Low 21-32 [facility] Comment on above: Order Comment: Speci men Type: SWAB Ordering Facility: [facility] Address: [address] [phone] Performed By: #### 3 6902-5 #### [facility] CLIA [id number] [address] [place] [address] [place] Creatinine [Mass/Vol] 0.89 mg/dL Normal 0.51-0.95 [facility] Comment on above: Order Comment: Speci men Type: SWAB Ordering Facility: [facility] Address: [address] [address] Result Comment: Cleopatra ents receiving either N-Acetylcysteine (NAC) or Metamizole prior to venipuncture, may have falsely depressed results. Performed By: #### 3 6902-5 #### [facility] CLIA [id number] [address] [place] [address] [place] ESTIMATED GLOMERULAR FILTRATION RATE 91 mL/min/1.73m??? Normal >=60 [facility] Comment on above: Order Comment: Speci men Type: SWAB Ordering Facility: [facility] Address: [address] [place] [address] Result Comment: Janett mated Glomerular Filtration Rate [...] GFR. Performed By: #### 3 6902-5 #### [facility] CLIA [id number] [address] [place] [address] [place] Glucose [Mass/Vol] 351 mg/dL High 70-100 [facility] Comment on above: Order Comment: Speci jeb Type: SWAB Ordering Facility: [facility] Address: [address] [address] Result Comment: The [place] Diabetes Association (ADA) provides guidance for cutoff [...] Standards of Medical Care in Diabetes 2016, [place] [employer]. Diabetes Care. 2016.39(Suppl 1). Results may be falsely elevated after the administration of Sulfapyridine. Results may be falsely depressed after the administration of Sulfasalazine. Performed By: #### 3 6902-5 #### [facility] CLIA [id number] [address] [place] [address] [place] Potassium [Moles/Vol] 4.0 mmol/L Normal 3.5-5.1 [facility] Comment on above: Order Comment: Speci men Type: SWAB Ordering Facility: [facility] Address: [address] [place] [address] Performed By: #### 3 6902-5 #### [facility] CLIA [id number] [address] [place] [address] [place] Sodium [Moles/Vol] 139 mmol/L Normal 136-145 [facility] Comment on above: Order Comment: Speci men Type: SWAB Ordering Facility: [facility] Address: [address] [place] [address] Performed By: #### 3 6902-5 #### [facility] CLIA [id number] [address] [place] [address] [place] Urea nitrogen [Mass/Vol] 19 mg/dL Normal 7-26 [facility] Comment on above: Order Comment: Speci men Type: SWAB Ordering Facility: [facility] Address: [address] [place] [address] Performed By: #### 3 6902-5 #### [facility] CLIA [id number] [address] [place] [address] [place] CBC panel Auto (Bld)on 02-01 Erythrocyte distribution width (RBC) [Ratio] 13.3 % Normal 11.5-15.0 [facility] Comment on above: Order Comment: Speci men Type: BLOOD SPECIMENOrdering Facility: [facility] Address: [address] [place] [address] Performed By: #### L [id number] #### [facility] CLIA [id number] [address] [place] [address] [place] Hematocrit (Bld) [Volume fraction] 38.4 % Normal 36.0-46.0 [facility] Comment on above: Order Comment: Speci men Type: BLOOD SPECIMENOrdering Facility: [facility] Address: [address] [place] [address] Performed By: #### L [id number] #### [facility] CLIA [id number] [address] [place] [address] [place] Hemoglobin (Bld) [Mass/Vol] 12.6 g/dL Normal 11.5-15.5 [facility] Comment on above: Order Comment: Speci men Type: BLOOD SPECIMENOrdering Facility: [facility] Address: [address] [place] [address] Performed By: #### L [id number] #### [facility] CLIA [id number] [address] [place] [address] [place] MCH (RBC) [Entitic mass] 29.2 pg Normal 26.0-34.0 [facility] Comment on above: Order Comment: Speci men Type: BLOOD SPECIMENOrdering Facility: [facility] Address: [address] [place] [address] Performed By: #### L [id number] #### [facility] CLIA [id number] [address] [place] [address] [place] MCHC (RBC) [Mass/Vol] 32.8 g/dL Normal 30.5-36.0 [facility] Comment on above: Order Comment: Speci men Type: BLOOD SPECIMENOrdering Facility: [facility] Address: [address] Performed By: #### L [id number] #### [facility] CLIA [id number] [address] [place] [address] [place] MCV (RBC) [Entitic vol] 88.9 fL Normal 80.0-100.0 [facility] Comment on above: Order Comment: Speci men Type: BLOOD SPECIMENOrdering Facility: [facility] Address: [address] [address] Performed By: #### L [id number] #### [facility] CLIA [id number] [address] [place] [address] [place] Nucleated RBC (Bld) [#/Vol] 10*3/uL Normal <0.01 [facility] Comment on above: Order Comment: Speci men Type: BLOOD SPECIMENOrdering Facility: [facility] Address: [address] [address] Performed By: #### L [id number] #### [facility] CLIA [id number] [address] [place] [address] [place] Platelet mean volume (Bld) [Entitic vol] 13.5 fL High 9.0-12.7 [facility] Comment on above: Order Comment: Speci men Type: BLOOD SPECIMENOrdering Facility: [facility] Address: [address] [address] Performed By: #### L [id number] #### [facility] CLIA [id number] [address] [place] [address] [place] Platelets (Bld) [#/Vol] 139 10*3/uL Low 150-400 [facility] Comment on above: Order Comment: Speci men Type: BLOOD SPECIMENOrdering Facility: [facility] Address: [address] [address] Result Comment: No c lot detected. Performed By: #### L [id number] #### [facility] CLIA [id number] [address] [place] [address] [facility] [place] RBC (Bld) [#/Vol] 4.32 10*6/uL Normal 3.90-5.20 [facility] Comment on above: Order Comment: Speci men Type: BLOOD SPECIMENOrdering Facility: [facility] Address: [address] [place] [phone] Performed By: #### L [id number] #### [facility] CLIA [id number] [address] [place] [address] [place] WBC (Bld) [#/Vol] 16.97 10*3/uL High 3.70-11.00 [facility] Comment on above: Order Comment: Speci men Type: BLOOD SPECIMENOrdering Facility: [facility] Address: [address] [place] [phone] Performed By: #### L [id number] #### [facility] CLIA [id number] [address] [place] [address] OF [facility] CNPDanitza 02-01-2023 CNPN Telephone (FAMPOR) KATHLEEN VILLA ([id number]) 1995 F T Date Time Provider Department 02/01/23 VIVI SMITH [...] (BAQSIMI) 3 mg/actuation nasal spray Use 1 [place] in the nose as needed for low [...] irregularity [N92.6] (more content not included)... Normal [facility] Comprehensive metabolic 2000 panelon 02-01-2023 Albumin [Mass/Vol] 3.8 g/dL Normal 3.2-5.0 [facility] Comment on above: Order Comment: Speci men Type: BLOOD SPECIMENOrdering Facility: [facility] Address: [address] [place] [address] Performed By: #### L [id number] #### [facility] CLIA [id number] [address] [place] [address] [place] ALP [Catalytic activity/Vol] 84 U/L Normal 45-117 [facility] Comment on above: Order Comment: Speci men Type: BLOOD SPECIMENOrdering Facility: [facility] Address: [address] [address] Performed By: #### L [id number] #### [facility] CLIA [id number] [address] [place] [address] [place] ALT [Catalytic activity/Vol] 19 U/L Normal 13-61 [facility] Comment on above: Order Comment: Speci men Type: BLOOD SPECIMENOrdering Facility: [facility] Address: [address] [place] [address] Result Comment: Resu lts may be falsely depressed after the administration of Sulfasalazine and/or Sulfapyridine. Performed By: #### L [id number] #### [facility] CLIA [id number] [address] [place] [address] [place] Anion gap [Moles/Vol] 16 mmol/L Normal 5-16 [facility] Comment on above: Order Comment: Speci men Type: BLOOD SPECIMENOrdering Facility: [facility] Address: [address] [place] [address] Performed By: #### L [id number] #### [facility] CLIA [id number] [address] [place] [address] [place] AST [Catalytic activity/Vol] 15 U/L Normal 8-34 [facility] Comment on above: Order Comment: Speci men Type: BLOOD SPECIMENOrdering Facility: [facility] Address: [address] [place] [address] Result Comment: Resu lts may be falsely depressed after the administration of Sulfasalazine and/or Sulfapyridine. Performed By: #### L [id number] #### [facility] CLIA [id number] [address] [place] [address] [place] Bilirubin [Mass/Vol] 0.7 mg/dL Normal 0.2-1.0 [facility] Comment on above: Order Comment: Speci men Type: BLOOD SPECIMENOrdering Facility: [facility] Address: [address] [place] [address] Performed By: #### L [id number] #### [facility] CLIA [id number] [address] [place] [address] [place] Calcium [Mass/Vol] 8.7 mg/dL Normal 8.5-10.5 [facility] Comment on above: Order Comment: Speci men Type: BLOOD SPECIMENOrdering Facility: [facility] Address: [address] [address] Performed By: #### L [id number] #### [facility] CLIA [id number] [address] [place] [address] [place] Chloride [Moles/Vol] 110 mmol/L High 98-107 [facility] Comment on above: Order Comment: Speci men Type: BLOOD SPECIMENOrdering Facility: [facility] Address: [address] [place] [address] Performed By: #### L [id number] #### [facility] CLIA [id number] [address] [place] [address] [place] CO2 [Moles/Vol] 15 mmol/L Low 21-32 [facility] Comment on above: Order Comment: Speci men Type: BLOOD SPECIMENOrdering Facility: [facility] Address: [address] [place] [address] Performed By: #### L [id number] #### [facility] CLIA [id number] [address] [place] [address] [place] Creatinine [Mass/Vol] 0.66 mg/dL Normal 0.51-0.95 [facility] Comment on above: Order Comment: Speci men Type: BLOOD SPECIMENOrdering Facility: [facility] Address: [address] [place] [address] Result Comment: Cleopatra ents receiving either N-Acetylcysteine (NAC) or Metamizole prior to venipuncture, may have falsely depressed results. Performed By: #### L [id number] #### [facility] CLIA [id number] [address] [place] [address] [place] ESTIMATED GLOMERULAR FILTRATION RATE 123 mL/min/1.73m??? Normal >=60 [facility] Comment on above: Order Comment: Speci men Type: BLOOD SPECIMENOrdering Facility: [facility] Address: [address] [place] [address] Result Comment: Janett mated Glomerular Filtration Rate [...] reflect actual GFR. Performed By: #### L [id number] #### [facility] CLIA [id number] [address] [place] [address] [place] Glucose [Mass/Vol] 311 mg/dL High 70-100 [facility] Comment on above: Order Comment: Jon russ Type: BLOOD SPECIMENOrdering Facility: [facility] Address: [address] [place], [place] [phone] Result Comment: The [place] Diabetes Association (ADA) provides guidance for cutoff [...] Standards of Medical Care in Diabetes 2016, [place] Diabetes Association. Diabetes Care. 2016.39(Suppl 1). Results may be falsely elevated after the administration of Sulfapyridine. Results may be falsely depressed after the administration of Sulfasalazine. Performed By: #### L [id number] #### [facility] CLIA [id number] [address] [place] [address] [place] Potassium [Moles/Vol] 4.4 mmol/L Normal 3.5-5.1 [facility] Comment on above: Order Comment: Jon russ Type: BLOOD SPECIMENOrdering Facility: [facility] Address: [address] [phone] Performed By: #### L [id number] #### [facility] CLIA [id number] [address] [place] [address] [place] Protein [Mass/Vol] 6.5 g/dL Normal 6.0-8.5 [facility] Comment on above: Order Comment: Jon russ Type: BLOOD SPECIMENOrdering Facility: [facility] Address: [address] [place] [address] Performed By: #### L [id number] #### [facility] CLIA [id number] [address] [place] [address] [place] Sodium [Moles/Vol] 141 mmol/L Normal 136-145 [facility] Comment on above: Order Comment: Belindai men Type: BLOOD SPECIMENOrdering Facility: [facility] Address: [address] [place] [address] Performed By: #### L [id number] #### [facility] CLIA [id number] [address] [place] [address] [place] Urea nitrogen [Mass/Vol] 15 mg/dL Normal 7-26 [facility] Comment on above: Order Comment: Belindai men Type: BLOOD SPECIMENOrdering Facility: [facility] Address: [address] [place] [address] Performed By: #### L [id number] #### [facility] CLIA [id number] [address] [place] [address] OF [place] ED PROV NOTEon 02-01-2023 ED PROV NOTE HNO ID: [id number] Author: Adryan Alexis PA-C Service: ? 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 Type: ED Provider Notes Filed: 01/31/2023 11:39 [...] SEPSIS LACT (more content not included)... Normal [facility] HISTORY PHYSICALon HISTORY PHYSICAL HNO ID: [id number] Author: Camilo Centeno DO Service: Hospital Medicine Author Type: Physician Type: HANDP Filed: 02/01/2023 8:08 AM Note Text: HISTORY AND PHYSICAL SERVICE DATE: 01/31/2023 SERVICE TIME: 11:46 PM PRIMARY CARE PHYSICIAN: Vivi Smith MD Subjective CHIEF COMPLAINT: Abdominal pain, nausea, and vomiting HPI: Patient is a 27-year-old female who presented to the [facility] emergency department earlier this evening for further [...] (BAQSIMI) 3 mg/actuation nasal spray Use 1 [place] in the nose as needed for low [...] or rhonchi (more content not included)... Normal [facility] Magnesium SerPl-mCncon 02-01 Magnesium [Mass/Vol] 1.7 mg/dL Normal 1.6-2.6 [facility] Comment on above: Order Comment: Speci men Type: BLOOD SPECIMENOrdering Facility: [facility] Address: [address] [place] [address] [place] [address] Performed By: #### L [id number] #### [facility] CLIA [id number] [address] [place] [address] [facility] NURSING PROGon 02-01-2023 NURSING PROG HNO ID: [id number] Author: Avani Seo RN Service: Nursing Author [...] error. It must be returned to the bus and rail operator. It is now disconnected and she will now take sliding scale insulin for coverage. Normal [facility] Urinalysis complete panel (U )on 02-01-2023 Bacteria LM.HPF (Urine sed) [#/Area] Rare Abnormal None Seen [facility] Comment on above: Order Comment: Speci men Type: URINE SPECIMENOrdering Facility: [facility] Address: [address] [place] [address] Performed By: #### L [id number] #### [facility] CLIA [id number] [address] [place] [address] [place] Bilirubin Ql (U) Negative Normal Negative [facility] Comment on above: Order Comment: Speci men Type: URINE SPECIMENOrdering Facility: [facility] Address: [address] [address] Performed By: #### L [id number] #### [facility] [facility] CLIA [id number] [address] [place] [address] Clarity (Unsp spec) Clear Normal Clear [facility] Comment on above: Order Comment: Speci men Type: URINE SPECIMENOrdering Facility: [facility] Address: [address] [place] [address] Performed By: #### L [id number] #### [facility] CLIA [id number] [address] [place] [address] [place] Color (U) Yellow Normal Yellow [facility] Comment on above: Order Comment: Speci men Type: URINE SPECIMENOrdering Facility: [facility] Address: [address] [place] [address] Performed By: #### L [id number] #### [facility] CLIA [id number] [address] [place] [address] [place] Epithelial cells LM.HPF (Urine sed) [#/Area] Few Normal [facility] Comment on above: Order Comment: Speci men Type: URINE SPECIMENOrdering Facility: [facility] Address: [address] [place] [address] Performed By: #### L [id number] #### [facility] CLIA [id number] [address] [place] [address] [place] Glucose Test strip (U) [Mass/Vol] 3+ Abnormal Negative [facility] Comment on above: Order Comment: Speci men Type: URINE SPECIMENOrdering Facility: [facility] Address: [address] [place] [address] Performed By: #### L [id number] #### [facility] CLIA [id number] [address] [place] [address] [place] Hemoglobin Ql (U) 2+ Abnormal Negative [facility] Comment on above: Order Comment: Speci men Type: URINE SPECIMENOrdering Facility: [facility] Address: [address] [place] [address] Performed By: #### L [id number] #### [facility] CLIA [id number] [address] [place] [address] [place] Ketones Ql (U) 2+ Abnormal Negative [facility] Comment on above: Order Comment: Speci men Type: URINE SPECIMENOrdering Facility: [facility] Address: [address] [place] [address] Performed By: #### L [id number] #### [facility] CLIA [id number] [address] [place] [address] [place] Leukocyte esterase Test strip Ql (U) Negative Normal Negative [facility] Comment on above: Order Comment: Speci men Type: URINE SPECIMENOrdering Facility: [facility] Address: [address] [place] [address] Performed By: #### L [id number] #### [facility] CLIA [id number] [address] [place] [address] [place] Nitrite Ql (U) Negative Normal Negative [facility] Comment on above: Order Comment: Speci men Type: URINE SPECIMENOrdering Facility: [facility] Address: [address] [place] [address] Performed By: #### L [id number] #### [facility] CLIA [id number] [address] [place] [address] [place] pH (U) 7.0 [pH] Normal 5.0-8.0 [facility] Comment on above: Order Comment: Speci men Type: URINE SPECIMENOrdering Facility: [facility] Address: [address] [place] [address] Performed By: #### L [id number] #### [facility] CLIA [id number] [address] [place] [address] [place] Protein (U) [Mass/Vol] 1+ Abnormal Negative [facility] Comment on above: Order Comment: Speci men Type: URINE SPECIMENOrdering Facility: [facility] Address: [address] [place] [address] Performed By: #### L [id number] #### [facility] CLIA [id number] [address] [place] [address] RBC LM.HPF (Urine sed) [#/Area] 3-5 /HPF Abnormal 0-3 /HPF [facility] Comment on above: Order Comment: Speci men Type: URINE SPECIMENOrdering Facility: [facility] Address: [address] [place] [address] Performed By: #### L [id number] #### [facility] CLIA [id number] [address] [place] [address] Specific gravity (U) [Rel density] 1.021 Normal 1.005-1.030 [facility] Comment on above: Order Comment: Speci men Type: URINE SPECIMENOrdering Facility: [facility] Address: [address] [place] [address] Performed By: #### L [id number] #### [facility] CLIA [id number] [address] [place] [address] Urobilinogen Ql (U) Negative Normal Negative [facility] Comment on above: Order Comment: Speci men Type: URINE SPECIMENOrdering Facility: [facility] Address: [address] [place] [address] Performed By: #### L [id number] #### [facility] CLIA [id number] [address] [place] [address] [place] WBC LM.HPF (Urine sed) [#/Area] 0-5 /HPF Normal 0-5 /HPF [facility] Comment on above: Order Comment: Speci men Type: URINE SPECIMENOrdering Facility: [facility] Address: [address] [place] [address] Performed By: #### L [id number] #### [facility] CLIA [id number] [address] [place] [address] [place] Basic metabolic 2000 panelon 01-31-2023 Anion gap [Moles/Vol] 16 mmol/L Normal 5-16 [facility] Comment on above: Order Comment: Speci men Type: BLOOD SPECIMENOrdering Facility: [facility] Address: [address] [place] [address] Performed By: #### 2 4325-3, 32019-3, HCG ####[facility]IA [id number] [place] [address] [place] Calcium [Mass/Vol] 9.9 mg/dL Normal 8.5-10.5 [facility] Comment on above: Order Comment: Speci men Type: BLOOD SPECIMENOrdering Facility: [facility] Address: [address] [place] [address] Performed By: #### 2 4325-3, 35952-3, HCG ####[facility]ORY[facility]IA [id number] [place] [address] [place] Chloride [Moles/Vol] 110 mmol/L High 98-107 [facility] Comment on above: Order Comment: Speci men Type: BLOOD SPECIMENOrdering Facility: [facility] Address: [address] [place] [address] Performed By: #### 2 4325-3, 64146-7, HCG ####[facility]ORYCLIA [id number] [place] [address] [place] CO2 [Moles/Vol] 15 mmol/L Low 21-32 [facility] Comment on above: Order Comment: Speci men Type: BLOOD SPECIMENOrdering Facility: [facility] Address: [address] [place] [address] Performed By: #### 2 4325-3, 31018-6, HCG ####[facility]ORYCLIA [id number] [place] [address] [place] Creatinine [Mass/Vol] 0.65 mg/dL Normal 0.51-0.95 [facility] Comment on above: Order Comment: Speci men Type: BLOOD SPECIMENOrdering Facility: [facility] Address: [address] [place] [address] Result Comment: Cleopatra ents receiving either N-Acetylcysteine (NAC) or Metamizole prior to venipuncture, may have falsely depressed results. Performed By: #### 2 4325-3, 50256-6, HCG ####[facility]ORY[facility]IA [id number] [address] OF [facility] ESTIMATED GLOMERULAR FILTRATION RATE 123 mL/min/1.73m??? Normal >=60 [facility] Comment on above: Order Comment: Speci men Type: BLOOD SPECIMENOrdering Facility: [facility] Address: [address] [place] [address] Result Comment: Janett mated Glomerular Filtration Rate [...] actual GFR. Performed By: #### 2 4325-3, 29037-9, HCG ####[facility]ORY[facility]IA [id number] [place] [address] [place] Glucose [Mass/Vol] 248 mg/dL High 70-100 [facility] Comment on above: Order Comment: Speci men Type: BLOOD SPECIMENOrdering Facility: [facility] Address: [address] [place] [address] Result Comment: The [place] [employer] Association (ADA) provides guidance for cutoff [...] Standards of Medical Care in Diabetes 2016, [place] [employer]. Diabetes Care. 2016.39(Suppl 1). Results may be falsely elevated after the administration of Sulfapyridine. Results may be falsely depressed after the administration of Sulfasalazine. Performed By: #### 2 4325-3, 97407-1, HCG ####[facility]ORY[facility]IA [id number] [place] [address] [place] Potassium [Moles/Vol] 3.8 mmol/L Normal 3.5-5.1 [facility] Comment on above: Order Comment: Speci men Type: BLOOD SPECIMENOrdering Facility: [facility] Address: [address] [place] [address] Performed By: #### 2 4325-3, 84622-6, HCG ####[facility]ORYCLIA [id number] [place] [address] [place] Sodium [Moles/Vol] 141 mmol/L Normal 136-145 [facility] Comment on above: Order Comment: Speci men Type: BLOOD SPECIMENOrdering Facility: [facility] Address: [address] [place] [address] Performed By: #### 2 5-3, 97933-0, HCG ####[facility]ORYCLIA [id number] [place] [address] [place] Urea nitrogen [Mass/Vol] 17 mg/dL Normal 7-26 [facility] Comment on above: Order Comment: Speci men Type: BLOOD SPECIMENOrdering Facility: [facility] Address: [address] [place] [address] Performed By: #### 2 4325-3, 08880-5, HCG ####[facility]ORYCLIA [id number] [place] [address] [place] CBC W Auto Differential pane l (Bld)on 01-31-2023 Basophils (Bld) [#/Vol] 0.07 10*3/uL Normal <0.11 [facility] Comment on above: Order Comment: Speci men Type: BLOOD SPECIMENOrdering Facility: [facility] Address: [address] [place] [address] Performed By: #### 5 7021-8 ####[facility]ORYCLIA [id number] [place] [address] [place] Basophils/100 WBC (Bld) 0.5 % Normal [facility] Comment on above: Order Comment: Speci men Type: BLOOD SPECIMENOrdering Facility: [facility] Address: [address] [place] [address] Performed By: #### 5 7021-8 ####[facility]ORYCLIA [id number] [address] [place] Differential cell count method Nom (Bld) Auto Normal [facility] Comment on above: Order Comment: Speci men Type: BLOOD SPECIMENOrdering Facility: [facility] Address: [address] [place] [address] Performed By: #### 5 7021-8 ####[facility]ORYCLIA [id number] [place] [address] [place] Eosinophils (Bld) [#/Vol] 10*3/uL Normal <0.46 [facility] Comment on above: Order Comment: Speci men Type: BLOOD SPECIMENOrdering Facility: [facility] Address: [address] [place] [address] Performed By: #### 5 7021-8 ####[facility]ORYCLIA [id number] [address] [place] Eosinophils/100 WBC (Bld) 0.1 % Normal [facility] Comment on above: Order Comment: Speci men Type: BLOOD SPECIMENOrdering Facility: [facility] Address: [address] [place] [address] Performed By: #### 5 7021-8 ####[facility]ORYCLIA [id number] [address] [place] Erythrocyte distribution width (RBC) [Ratio] 12.9 % Normal 11.5-15.0 [facility] Comment on above: Order Comment: Speci men Type: BLOOD SPECIMENOrdering Facility: [facility] Address: [address] [place] [address] Performed By: #### 5 7021-8 ####[facility]ORYCLIA [id number] [address] OF [place] Hematocrit (Bld) [Volume fraction] 43.2 % Normal 36.0-46.0 [facility] Comment on above: Order Comment: Speci men Type: BLOOD SPECIMENOrdering Facility: [facility] Address: [address] [place] [address] Performed By: #### 5 7021-8 ####[facility]ORYCLIA [id number] [place] [address] [place] Hemoglobin (Bld) [Mass/Vol] 14.8 g/dL Normal 11.5-15.5 [facility] Comment on above: Order Comment: Speci men Type: BLOOD SPECIMENOrdering Facility: [facility] Address: [address] [place] [address] Performed By: #### 5 7021-8 ####[facility]ORYCLIA [id number] [place] [address] [place] Immature granulocytes (Bld) [#/Vol] 0.12 10*3/uL High <0.10 [facility] Comment on above: Order Comment: Speci men Type: BLOOD SPECIMENOrdering Facility: [facility] Address: [address] [place] [address] Performed By: #### 5 7021-8 ####[facility]ORYCLIA [id number] [place] [address] [place] Immature granulocytes/100 WBC (Bld) 0.8 % Normal [facility] Comment on above: Order Comment: Speci men Type: BLOOD SPECIMENOrdering Facility: [facility] Address: [address] [place] [address] Performed By: #### 5 7021-8 ####[facility]ORYCLIA [id number] [place] [address] [place] Lymphocytes (Bld) [#/Vol] 2.36 10*3/uL Normal 1.00-4.00 [facility] Comment on above: Order Comment: Speci men Type: BLOOD SPECIMENOrdering Facility: [facility] Address: [address] [place] [address] Performed By: #### 5 7021-8 ####[facility]ORYCLIA [id number] [address] OF [place] Lymphocytes/100 WBC (Bld) 15.3 % Normal [facility] Comment on above: Order Comment: Speci men Type: BLOOD SPECIMENOrdering Facility: [facility] Address: [address] [place] [address] Performed By: #### 5 7021-8 ####[facility]ORYCLIA [id number] [place] [address] [place] MCH (RBC) [Entitic mass] 29.1 pg Normal 26.0-34.0 [facility] Comment on above: Order Comment: Speci men Type: BLOOD SPECIMENOrdering Facility: [facility] Address: [address] Performed By: #### 5 7021-8 ####[facility]ORYCLIA [id number] [address] [place] MCHC (RBC) [Mass/Vol] 34.3 g/dL Normal 30.5-36.0 [facility] Comment on above: Order Comment: Speci men Type: BLOOD SPECIMENOrdering Facility: [facility] Address: [address] Performed By: #### 5 7021-8 ####[facility]ORYCLIA [id number] [place] [address] [place] MCV (RBC) [Entitic vol] 84.9 fL Normal 80.0-100.0 [facility] Comment on above: Order Comment: Speci men Type: BLOOD SPECIMENOrdering Facility: [facility] Address: [address] [place] [address] Performed By: #### 5 7021-8 ####[facility]ORYCLIA [id number] [place] [address] [place] Monocytes (Bld) [#/Vol] 0.73 10*3/uL Normal <0.87 [facility] Comment on above: Order Comment: Speci men Type: BLOOD SPECIMENOrdering Facility: [facility] Address: [address] [place] [address] Performed By: #### 5 7021-8 ####[facility]ORYCLIA [id number] [address] Monocytes/100 WBC (Bld) 4.7 % Normal [facility] Comment on above: Order Comment: Speci men Type: BLOOD SPECIMENOrdering Facility: [facility] Address: [address] [place] [address] Performed By: #### 5 7021-8 ####[facility]ORYCLIA [id number] [place] [address] [place] Neutrophils (Bld) [#/Vol] 12.16 10*3/uL High 1.45-7.50 [facility] Comment on above: Order Comment: Speci men Type: BLOOD SPECIMENOrdering Facility: [facility] Address: [address] [place] [address] Performed By: #### 5 7021-8 ####[facility]ORYCLIA [id number] [address] [place] Neutrophils/100 WBC (Bld) 78.6 % Normal [facility] Comment on above: Order Comment: Speci men Type: BLOOD SPECIMENOrdering Facility: [facility] Address: [address] [place] [address] Performed By: #### 5 7021-8 ####[facility]ORYCLIA [id number] [address] Nucleated RBC (Bld) [#/Vol] 10*3/uL Normal <0.01 [facility] Comment on above: Order Comment: Speci men Type: BLOOD SPECIMENOrdering Facility: [facility] Address: [address] [place] [address] Performed By: #### 5 7021-8 ####[facility]ORYCLIA [id number] [address] OF [facility] Nucleated RBC/100 WBC (Bld) [Ratio] 0.0 /100 WBC Normal [facility] Comment on above: Order Comment: Speci men Type: BLOOD SPECIMENOrdering Facility: [facility] Address: [address] [place] [address] Performed By: #### 5 7021-8 ####[facility]ORYCLIA [id number] [place] [address] [place] Platelet mean volume (Bld) [Entitic vol] 13.0 fL High 9.0-12.7 [facility] Comment on above: Order Comment: Speci men Type: BLOOD SPECIMENOrdering Facility: [facility] Address: [address] [place] [address] Performed By: #### 5 7021-8 ####[facility]ORYCLIA [id number] [place] [address] [place] Platelets (Bld) [#/Vol] 180 10*3/uL Normal 150-400 [facility] Comment on above: Order Comment: Speci men Type: BLOOD SPECIMENOrdering Facility: [facility] Address: [address] [place] [address] Result Comment: No c lot detected. Performed By: #### 5 7021-8 ####[facility]ORYCLIA [id number] [address] OF [place] RBC (Bld) [#/Vol] 5.09 10*6/uL Normal 3.90-5.20 [facility] Comment on above: Order Comment: Speci men Type: BLOOD SPECIMENOrdering Facility: [facility] Address: [place] [address] Performed By: #### 5 7021-8 ####[facility]ORYCLIA [id number] [address] WBC (Bld) [#/Vol] 15.46 10*3/uL High 3.70-11.00 [facility] Comment on above: Order Comment: Speci men Type: BLOOD SPECIMENOrdering Facility: [facility] Address: [place] [address] Performed By: #### 5 7021-8 ####[facility]ORYCLIA [id number] [address] ECG COMPLETEon 01-31-2023 ECG COMPLETE Ventricular Rate : 8 0 BPM Atrial Rate : 80 BPM P-R Interval : 144 ms QRS Duration : 84 ms Q-T Interval : 402 ms QTC Calculation(Bazett) : 463 ms Calculated P Bowler : 26 degrees Calculated R Bowler : 78 degrees Calculated T Bowler : 72 degrees Normal sinus rhythm Nonspecific T wave abnormality Abnormal ECG When compared with ECG of 23-NOV-2022 18:14, Nonspecific T wave abnormality now evident in Lateral leads QT has lengthened Confirmed by ANASTASIA CHENG MD ([id number]) on 01/31/2023 11:03:12 PM NAME : KATHLEEN VILLA PID : [id number] : 1995 Gender : Female Race : ORD : [id number] Procedure Date : Jan 31 2023 19:42:30 Edit Date : Jan 31 2023 23:03:15 Diagnosis: Normal sinus rhythm Nonspecific T wave abnormality Abnormal ECG When compared with ECG of 23-NOV-2022 18:14, Nonspecific T wave abnormality now evident in Lateral leads QT has lengthened Confirmed by ANASTASIA CHENG MD ([id number]) on 01/31/2023 11:03:12 PM Test Reason : STAT Location : 0 : ED 9 Overread By : ANASTASIA CHENG MD Edited By : ANASTASIA CHENG MD Referred By : , Acquired by : [facility], [facility] ED NOTEon 01-31-2023 ED NOTE HNO ID: [id number] Author: Clementina Alarcon RN Service: Nursing Author Type: Registered Nurse Type: ED Notes Filed: 01/31/2023 9:06 PM Note Text: Report to oncoming nurse. [facility] ED NOTE HNO ID: [id number] Author: Blaise Flower RN Service: ? Author Type: Registered Nurse Type: ED Notes Filed: 01/31/2023 7:21 PM Note Text: Bed: 09-ED Expected date: 01/31/23 Expected time: Means of arrival: Comments: [facility] ED Triage Noteon 01-31-2023 ED Triage Note HNO ID: [id number] Author: Huy Horton PA-C Service: ? 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 Type: ED Triage Notes Filed: 01/31/2023 7:06 [...] obtained and pending. SIGNATURE: Huy Horton PA-C [facility] Gas and Carbon monoxide pane l (BldV)on 01-31-2023 BASE DEFICIT, VENOUS -2 mmol/L Normal -2-0 [facility] Comment on above: Order Comment: Speci men Type: VENOUS BLOOD SPECIMENOrdering Facility: [facility] Address: [address] [place], [place] [address] Performed By: #### 2 4344-4 ####[facility] THERAPYCLIA [id number] [address] [place] Body temperature 98.6 [degF] [facility] Comment on above: Order Comment: Speci men Type: VENOUS BLOOD SPECIMENOrdering Facility: [facility] Address: [address] [place], [place] [address] Performed By: #### 2 4344-4 ####[facility] THERAPYCLIA [id number] [place] [address] [place] Calcium.ionized (Bld) [Mass/Vol] 1.11 mmol/L Normal 1.08-1.30 [facility] Comment on above: Order Comment: Speci men Type: VENOUS BLOOD SPECIMENOrdering Facility: [facility] Address: [address] [place] [address] Performed By: #### 2 4344-4 ####[facility] THERAPYCLIA [id number] [address] [place] Carboxyhemoglobin (BldV) [Mass fraction] 0.8 % Normal 0.0-2.0 [facility] Comment on above: Order Comment: Speci men Type: VENOUS BLOOD SPECIMENOrdering Facility: [facility] Address: [address] [place] [address] Result Comment: Carb oxyhemoglobin Reference Range for Smokers: 2.0-8.0% Performed By: #### 2 4344-4 ####[facility] THERAPYCLIA [id number] [address] OF [place] CO2 (BldV) [Partial pressure] 22 mm[Hg] Low 42-55 [facility] Comment on above: Order Comment: Speci men Type: VENOUS BLOOD SPECIMENOrdering Facility: [facility] Address: [address] [place] [address] Performed By: #### 2 4344-4 ####[facility] THERAPYCLIA [id number] [place] [address] [place] Glucose [Mass/Vol] 303 mg/dL High 60-105 [facility] Comment on above: Order Comment: Speci men Type: VENOUS BLOOD SPECIMENOrdering Facility: [facility] Address: [address] [place] [address] Performed By: #### 2 4344-4 ####[facility] THERAPYCLIA [id number] [place] [address] [place] HCO3 (Bld) [Moles/Vol] 18 mmol/L Low 24-28 [facility] Comment on above: Order Comment: Speci men Type: VENOUS BLOOD SPECIMENOrdering Facility: [facility] Address: [address] [place] [address] Performed By: #### 2 4344-4 ####[facility] THERAPYCLIA [id number] [place] [address] [place] Hemoglobin (Bld) [Mass/Vol] 15.2 g/dL Normal 11.5-15.5 [facility] Comment on above: Order Comment: Speci men Type: VENOUS BLOOD SPECIMENOrdering Facility: [facility] Address: [address] [place] [address] Performed By: #### 2 4344-4 ####[facility] THERAPYCLIA [id number] [address] OF [place] Lactate [Moles/Vol] 2.1 mmol/L Normal 0.5-2.2 [facility] Comment on above: Order Comment: Speci men Type: VENOUS BLOOD SPECIMENOrdering Facility: [facility] Address: [address] [place] [address] Performed By: #### 2 4344-4 ####[facility] THERAPYCLIA [id number] [address] OF [place] Methemoglobin (Bld) [Mass fraction] 0.3 % Normal 0.0-1.5 [facility] Comment on above: Order Comment: Speci men Type: VENOUS BLOOD SPECIMENOrdering Facility: [facility] Address: [address] [place] [address] Performed By: #### 2 4344-4 ####[facility] THERAPYCLIA [id number] [address] OF [place] O2 THERAPY RA=Room Air Normal [facility] Comment on above: Order Comment: Speci men Type: VENOUS BLOOD SPECIMENOrdering Facility: [facility] Address: [address] [place] [address] Performed By: #### 2 4344-4 ####[facility] THERAPYCLIA [id number] [address] OF [place] Oxygen (BldV) [Partial pressure] 28 mm[Hg] Low 35-45 [facility] Comment on above: Order Comment: Speci men Type: VENOUS BLOOD SPECIMENOrdering Facility: [facility] Address: [address] [place] [address] Performed By: #### 2 4344-4 ####[facility] THERAPYCLIA [id number] [place] [address] [place] Oxyhemoglobin (BldV) [Mass fraction] 63 % Normal 4-98 [facility] Comment on above: Order Comment: Speci men Type: VENOUS BLOOD SPECIMENOrdering Facility: [facility] Address: [address] [place] [address] Performed By: #### 2 4344-4 ####[facility] THERAPYCLIA [id number] [place] [address] [place] pH (BldV) 7.53 [pH] High 7.32-7.42 [facility] Comment on above: Order Comment: Speci men Type: VENOUS BLOOD SPECIMENOrdering Facility: [facility] Address: [address] [place] [address] Performed By: #### 2 4344-4 ####[facility] THERAPYCLIA [id number] [place] [address] [place] Potassium [Moles/Vol] 3.9 mmol/L Normal 2.5-6.0 [facility] Comment on above: Order Comment: Speci men Type: VENOUS BLOOD SPECIMENOrdering Facility: [facility] Address: [address] [place] [address] Performed By: #### 2 4344-4 ####[facility] THERAPYCLIA [id number] [address] STATES [place] Sodium [Moles/Vol] 138 mmol/L Normal 136-144 [facility] Comment on above: Order Comment: Speci men Type: VENOUS BLOOD SPECIMENOrdering Facility: [facility] Address: [address] Performed By: #### 2 4344-4 ####[facility] THERAPYCLIA [id number] [place] [address] [place] HCG QUAL BLDon 01-31-2023 HCG, QUALITATIVE Negative Normal Negative [facility] Comment on above: Order Comment: Speci men Type: BLOOD SPECIMENOrdering Facility: [facility] Address: [address] [place] [address] Performed By: #### 2 4325-3, 69797-5, HCG ####[facility] LABORATORYCLIA [id number] [address] STATES OF [place] HIGH SENSITIVITY TROPONIN Io n 01-31-2023 Tropinin I.cardiac panel High sensitivity method <2.5 Normal 0.0-34.0 [facility] Comment on above: Order Comment: Speci men Type: BLOOD SPECIMENOrdering Facility: [facility] Address: [address] [place] [address] Result Comment: This assay uses different antibodies than our current assay, and assays, even by the same bus and rail operator may recognize different regions of the antibody and cannot be used interchangeably. Expect results of this assay to run higher than the previous assay. Performed By: #### H STROP ####[facility] LABORATORYCLIA [id number] [address] STATES OF [place] Hepatic function 2000 panelo n 01-31-2023 Albumin [Mass/Vol] 4.3 g/dL Normal 3.2-5.0 [facility] Comment on above: Order Comment: Speci men Type: BLOOD SPECIMENOrdering Facility: [facility] Address: [address] [facility] [address] Performed By: #### 2 4325-3, 42509-7, HCG ####[facility] LABORATORYCLIA [id number] [address] STATES [place] ALP [Catalytic activity/Vol] 93 U/L Normal 45-117 [facility] Comment on above: Order Comment: Speci men Type: BLOOD SPECIMENOrdering Facility: [facility] Address: [address] [place] [address] Performed By: #### 2 4325-3, 47420-3, HCG ####[facility] LABORATORYCLIA [id number] [address] STATES OF [facility] ALT [Catalytic activity/Vol] 21 U/L Normal 13-61 [facility] Comment on above: Order Comment: Speci men Type: BLOOD SPECIMENOrdering Facility: [facility] Address: [address] [place] [address] Result Comment: Resu lts may be falsely depressed after the administration of Sulfasalazine and/or Sulfapyridine. Performed By: #### 2 4325-3, 04267-8, HCG ####[facility] LABORATORYCLIA [id number] [address] [place] AST [Catalytic activity/Vol] 19 U/L Normal 8-34 [facility] Comment on above: Order Comment: Speci men Type: BLOOD SPECIMENOrdering Facility: [facility] Address: [address] [place] [address] Result Comment: Resu lts may be falsely depressed after the administration of Sulfasalazine and/or Sulfapyridine. Performed By: #### 2 4325-3, 18136-9, HCG ####[facility] LABORATORYCLIA [id number] [place] [address] [place] Bilirubin [Mass/Vol] 0.8 mg/dL Normal 0.2-1.0 [facility] Comment on above: Order Comment: Speci men Type: BLOOD SPECIMENOrdering Facility: [facility] Address: [address] [place] [address] Performed By: #### 2 4325-3, 44051-7, HCG ####[facility] LABORATORYCLIA [id number] [address] OF [facility] Bilirubin.conjugated [Mass/Vol] 0.2 mg/dL Normal 0.0-0.4 [facility] Comment on above: Order Comment: Speci men Type: BLOOD SPECIMENOrdering Facility: [facility] Address: [address] [place] [address] Performed By: #### 2 4325-3, 25828-8, HCG ####[facility] LABORATORYCLIA [id number] [place] [address] [facility] Protein [Mass/Vol] 7.3 g/dL Normal 6.0-8.5 [facility] Comment on above: Order Comment: Speci men Type: BLOOD SPECIMENOrdering Facility: [facility] Address: [address] [place] [address] Performed By: #### 2 4325-3, 58967-9, HCG ####[facility] LABORATORYCLIA [id number] [place] [address] [facility] OF [place] Lipase SerPl-cCncon 02-01-20 23 Lipase [Catalytic activity/Vol] 21 U/L Normal 12-60 [facility] Comment on above: Order Comment: Speci men Type: BLOOD SPECIMENOrdering Facility: [facility] Address: [address] [place] [address] Performed By: #### 3 040-3 ####[facility] LABORATORYCLIA [id number] [address] SEPSIS LACTATEon 01-31-2023 Lactate [Moles/Vol] 3.0 mmol/L High 0.4-2.0 [facility] Comment on above: Order Comment: Speci men Type: BLOOD SPECIMENOrdering Facility: [facility] Address: [address] [place] [address] Performed By: #### S LACT ####[facility] LABORATORYCLIA [id number] [address] OF [place] XR ACUTE ABD SERIES 2V ABD+C XRon [...] bowel. Consider CT if concern remains high. Facility Manager Histology: PSCB Transcribe Date/Time: Jan 31 2023 7:56P Dictated by : SARAVANAN REESE MD This examination was interpreted and the report reviewed and electronically signed by: SARAVANAN REESE MD on Jan 31 2023 8:00PM EST [id number] Normal [facility] Bacteria Ur Culton 3 Bacteria identified Cx Nom (U) CULTURE, URINE: <10,000 CFU/ml Normal Urogenital Dorothy Normal [facility] Comment on above: Performed By: #### 6 30-4 ####[facility] LABORATORYCLIA [id number] [address] [place] CNNURSEon 01-25-2023 CNNURSE Nurse Visit (FAMPOR) KATHLEEN VILLA ([id number]) 1995 F T Date Time Provider Department 01/25/23 12:30 PM [...] Other Visit Diagnosis:Dysuria [R30.0] Order(s):UA DIP B/O [[id number]] Order #: [id number] Prescriptions as of 01/25/2023 - prochlorperazine (COMPAZINE) [...] (BAQSIMI) 3 mg/actuation nasal spray Use 1 [place] in the nose as needed for low [...] Marfan syndrome [Q87.40] 12/25/2012 DM (diabetes mellitus) ([facility]) [E11.9] 12/25/2012 Gastroparesis due to DM (HCC) [...] 12/08/2022 Encoun (more content not included)... Normal [facility] HEMOGLOBIN A1C (POC)on 01-25 HbA1c (Bld) [Mass fraction] 7.6 % Abnormal 4.2 - 5.6 % [facility] - Chemistry and C hemistry - challengeon 01-25-2023 Glucose Ql (U) Negative Neg mg/dL [facility] Ketones Ql (U) Negative Neg [facility] pH (U) 6.5 [pH] 4.5 - 8.0 [facility] Protein.monoclonal (U) [Mass/Vol] Negative Neg mg/dL [facility] - Urinalysison Nitrite Ql (U) Negative Neg [facility] No Panel Informationon 01-25 Bilirubin, Urine Negative Neg [facility] Color/Appearance Yellow/clear [facility] Hemoglobin/Blood,Ur Negative Neg [facility] Leukocytes Negative Neg [facility] Specific [place], Ur 1.020 1.005 - 1.030 C [facility] Urobilinogen, Urine 0.2 EU Normal ( <1.1) EU [facility] CNPNon 01-24-2023 CNPN Telephone (FAMPOR) KATHLEEN VILLA ([id number]) 1995 F CHT Date Time Provider Department 01/24/23 VIVI SMITH During your visit today, we recorded the following information about you: Radha Mandel MA 01/24/2023 11:44 AM Signed Yaima from [facility] called and they need an order for [...] (BAQSIMI) 3 mg/actuation nasal spray Use 1 [place] in the nose as needed for low [...] VIVI SMITH on (more content not included)... [facility] CNPN Telephone (FAMPOR) KATHLEEN VILLA ([id number]) 1995 F CHT Date Time Provider Department 01/24/23 VIVI SMITH [facility] During your visit today, we recorded the [...] Diagnosis:Left flank pain [R10.9] Order(s):UA DIP B/O [[id number]] Order #: [id number] FUTURE URINE CULTURE [SQURCUL] Order #: [id number] Prescriptions as of 01/25/2023 - prochlorperazine (COMPAZINE) [...] (BAQSIMI) 3 mg/actuation nasal spray Use 1 [place] in the nose as needed for low [...] 04/16/2014 [Z34.90] 11/22/2013 04/16/2014 Diabetes mellitus in ([facility]) [O24.919] 12/25/2013 04/16/2014 DKA (diabetic ketoacidoses) [E11.10] [...] constipation [K59.04] 10/27 (more content not included)... [facility] ([id number]) 1995 F CHT Date Time Provider Department [...] (BAQSIMI) 3 mg/actuation nasal spray Use 1 [place] in the nose as needed for low [...] Encounter Status:Closed by YAIMA AGUILAR on 01/26/23 Normal [facility] Bacteria Ur Culton 3 Bacteria identified Cx Nom (U) CULTURE, URINE: 10,000-<50,000 CFU/mL Three or more organisms, no one type predominant, suggesting contamination during collection. Recollect if clinically indicated. Abnormal [facility] Comment on above: Performed By: #### 6 30-4 ####[facility] LABORATORYCLIA [id number] [address] OF [facility] CNOVon 01-20-2023 CNOV Office Visit (FAMPOR ) KATHLEEN VILLA ([id number]) 1995 F [facility] Date Time Provider Department 01/20/23 11:00 AM [...] 200s/. She sees Endo next week. 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 Normal [facility] C. trachomatis+N. gonorrhoea e DNA DANIEL+probe Ql (Unsp spec)on 01-12-2023 C. trachomatis DNA DANIEL+probe Ql (Unsp spec) Negative Normal Negative for Chlamydia trachomatis by amplificaton [facility] Comment on above: Order Comment: Speci men Type: SWAB [facility] Address: [address] [place] [phone] Performed By: #### 3 6902-5 #### [facility] CLIA [id number] [address] [place], [place] [address] [place] N. gonorrhoeae DNA DANIEL+probe Ql (Unsp spec) Negative Normal Negative for Neisseria gonorrhoeae by amplification [facility] Comment on above: Order Comment: Speci men Type: SWAB [facility]ing Facility: [facility] Address: [facility] [place] [address] Performed By: #### 3 6902-5 #### [facility] CLIA [id number] [facility] [place] [address] [facility] CNOVon 01-12-2023 CNOV Office Visit (OBGYMM ) AKTHLEEN VILLA ([id number]) 1995 F CHT Date Time Provider Department 01/12/23 1:00 PM MADONNA TORO OBGYMM During your visit today, we recorded the following information about you: Blood pressure Weight Height Last Period 100/70 86.3 kg 1.753 m 11/26/22 Faviola Engle MA 01/12/2023 1:32 PM Signed Pt was exposed to a std. 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 Normal [facility] HBV surface Ag Ser Qlon 12-26 HBV surface Ag Ql (S) Non-Reactive Normal Equivo cristina, Nonreactive [facility] Comment on above: Order Comment: Speci men Type: BLOOD SPECIMEN [facility]ing Facility: [facility] Address: [address] [place] [phone] Result Comment: Resu lts were obtained with the [employer] IM IgM assay. Values obtained with different manufactures' assay methods may not be used interchangeably. Performed By: #### 3 1201-7, 5195-3, 13434-4, SYPH #### [facility] CLIA [id number] [address] [place] [address] [place] HCV Ab Ser Qlon 01-12-2023 HCV Ab Ql (S) Non-Reactive Normal Nonreactive [facility] Comment on above: Order Comment: Speci men Type: BLOOD SPECIMEN [facility]ing Facility: [facility] Address: [address] [place] [address] Result Comment: Scre ening test negative Nonreactive HCV Antibody Screen is consistent with no HCV infection, unless recent infection is suspected or other evidence exists to indicate HCV infection. Results were obtained with the [employer] IM IgM assay. Values obtained with different manufactures' assay methods may not be used interchangeably. Performed By: #### 3 1201-7, 5195-3, 84973-0, SYPH #### [facility] CLIA [id number] [address] [place] [address] [place] HIV 1+2 Ab IA Qlon HIV 1+2 Ab+HIV1 p24 Ag IA Ql Non-Reactive Normal Nonreactive [facility] Comment on above: Order Comment: Speci men Type: BLOOD SPECIMEN [facility]ing Facility: [facility] Address: [address] [place] [address] Result Comment: Nonr eactive: Less than 1.0 index value Specimens with an index value <1.0 are considered nonreactive for antibodies to HIV-1, HIV-2, and p24 antigen by the [employer] IM CHIV assay. Performed By: #### 3 1201-7, 5195-3, 23240-9, SYPH #### [facility] CLIA [id number] [address] [place] [address] OF [place] TREPONEMA PALLIDUM SCREENon 01-12-2023 T. pallidum IgG IF Ql (S) Non-Reactive Normal Nonreactive [facility] Comment on above: Order Comment: Speci men Type: BLOOD SPECIMEN [facility]ing Facility: [facility] Address: [address] [place] [address] Result Comment: Samp les with an index value of less than 0.90 are considered Nonreactive for Syphilis T. pallidum antibodies. Performed By: #### 3 1201-7, 5195-3, 58810-4, SYPH #### [facility] CLIA [id number] [address] [place], [place] [address] [facility] WET PREPon 01-12-2023 WET PREP WET PREP RESULT: No Trichomonads, No yeast observed Moderate Clue cells present Normal [facility] Comment on above: Performed By: #### L [id number] #### [facility] CLIA [id number] [address] [place], [place] [address] [facility] HEMOGLOBIN A1C (POC)on 08-16 HbA1c (Bld) [Mass fraction] 7.0 % Abnormal 4.2 - 5.6 % [facility] BMPon 02-01-2022 Anion gap [Moles/Vol] 7 mmol/L Normal 5-16 [facility] Comment on above: Order Comment: Campu s: M Performed By: #### L 500.42967, L500.46053, L500.08551 ####[facility] [id number] [place], [place] [address]Rb# [phone] BUN/CREA TNP Normal 15-24 [facility] Comment on above: Order Comment: Campu s: M Performed By: #### L 500.89587, L500.73973, L500.89276 ####[facility] [id number] [place], [place] [address]Kk# [phone] Calcium [Mass/Vol] 8.4 mg/dL Low 8.5-10.5 [facility] Comment on above: Order Comment: Campu s: M Result Comment: NOTE NEW NORMAL RANGE DUE TO REAGENT CHANGE Performed By: #### L 500.52296, L500.80157, L500.50674 ####[facility] [id number] [place], [place] [address]Zf# [phone] Chloride [Moles/Vol] 112 mmol/L High 98-107 [facility] Comment on above: Order Comment: Campu s: M Performed By: #### L 500.02418, L500.02569, L500.61610 ####[facility] [id number] [place], [place] [address]Qi# [phone] CO2 [Moles/Vol] 24.0 mmol/L Normal 21-32 [facility] Comment on above: Order Comment: Campu s: M Performed By: #### L 500.94335, L500.00516, L500.97335 ####[facility] [id number] [place], [place] [address]Pb# [phone] Creatinine [Mass/Vol] 0.64 mg/dL Normal 0.510-0.950 [facility] Comment on above: Order Comment: Campu s: M Result Comment: Cleopatra ents receiving either N-Acetylcysteine (NAC) orMetamizole prior to venipuncture, may have falsely depressedresults. Performed By: #### L 500.06747, L500.07158, L500.18414 ####[facility] [id number] [place], [place] [address]Lq# [phone] Glucose [Mass/Vol] 104 mg/dL High 70-100 [facility] Comment on above: Order Comment: Campu s: M Result Comment: 70-1 00- Normal Fasting; 100-125 Impaired Fasting; greaterthan 126 on more than one result- Diabetes. ADA guidelines.Results may be falsely elevated after the administration ofSulfapyridine.Results may be falsely depressed after the administration ofSulfasalazine. Performed By: #### L 500.34565, L500.29426, L500.75104 ####[facility] [id number] [place], [place] [address]Tl# [phone] Potassium [Moles/Vol] 3.7 mmol/L Normal 3.5-5.1 [facility] Comment on above: Order Comment: Campu s: M Result Comment: Slig ht Hemolysis, Result may be affected. Performed By: #### L 500.99557, L500.34301, L500.75237 ####[facility] [id number] [place], [place] [address]Mw# [phone] Sodium [Moles/Vol] 143 mmol/L Normal 136-145 [facility] Comment on above: Order Comment: Campu s: M Performed By: #### L 500.53962, L500.24021, L500.95728 ####[facility] [id number] [place] [address]Yr# [phone] Urea nitrogen [Mass/Vol] 5 mg/dL Low 7-26 [facility] Comment on above: Order Comment: Campu s: M Performed By: #### L 500.78951, L500.36762, L500.29253 ####[address] [address]Zw# [phone] CBC W/DIFFon 02-01-2022 BASO ABS 0.10 K/CU MM Normal 0-0.2 [facility] Comment on above: Order Comment: Campu s: M Performed By: #### L 200.19597 ####[address] [address]Tf# [phone] Basophils/100 WBC (Bld) 0.6 % Normal 0-2 [facility] Comment on above: Order Comment: Campu s: M Performed By: #### L 200.87655 ####[facility] [id number] [place] [address]Xw# [phone] EOS ABS 0.10 K/CU MM Normal 0-0.5 [facility] Comment on above: Order Comment: Campu s: M Performed By: #### L 200.58348 ####[facility] [id number] [place] [address]Xq# [phone] Eosinophils/100 WBC (Bld) 1.3 % Normal 0-5 [facility] Comment on above: Order Comment: Campu s: M Performed By: #### L 200.62982 ####[facility] [id number] [place] [address]St# [phone] Erythrocyte distribution width (RBC) [Ratio] 13.8 % Normal 11-14.5 [facility] Comment on above: Order Comment: Campu s: M Performed By: #### L 200.75608 ####[facility] [id number] [place] [address]Ld# [phone] Hematocrit (Bld) [Volume fraction] 36.9 % Normal 35.0-47.0 [facility] Comment on above: Order Comment: Campu s: M Performed By: #### L 200.66624 ####[facility] [id number] [place], [place] [address]Ph# [phone] Hemoglobin (Bld) [Mass/Vol] 12.3 g/dL Normal 11.5-15.5 [facility] Comment on above: Order Comment: Campu s: M Performed By: #### L 200.55218 ####[facility] [id number] [place], [place] [address]Ph# [phone] IMMATR GRAN ABS 0.20 K/CU MM Normal Less than 2 [facility] Comment on above: Order Comment: Campu s: M Performed By: #### L 200.40723 ####[facility] [id number] [place] [address]Ti# [phone] IMMATURE GRAN % 2.2 % Normal Less than 2 [facility] Comment on above: Order Comment: Campu s: M Performed By: #### L 200.98075 ####[facility] [id number] [place], [place] [address]Ph# [phone] LYMPH ABS 3.70 K/CU MM Normal 0.9-4.4 [facility] [facility] [place] Comment on above: Order Comment: Campu s: M Performed By: #### L 200.86820 ####[facility] [id number] [place], [place] [id number]# [phone] Lymphocytes/100 WBC (Bld) 33.6 % Normal 20-40 [facility] [place] Comment on above: Order Comment: Campu s: M Performed By: #### L 200.79448 ####[facility] [id number] [place], [place] [address]My# [phone] MCHC (RBC) [Mass/Vol] 33.3 g/dL Normal 32.0-36.0 [facility] [place] Comment on above: Order Comment: Campu s: M Performed By: #### L 200.38917 ####[facility] [id number] [place] [address]By# [phone] MCV (RBC) [Entitic vol] 86.8 fL Normal 80.0-99.0 [facility] Comment on above: Order Comment: Campu s: M Performed By: #### L 200.94969 ####[address] [address]Xt# [phone] MONO ABS 0.80 K/CU MM Normal 0.1-1.1 [facility] Comment on above: Order Comment: Campu s: M Performed By: #### L 200.32471 ####[place] [address]Ph# [phone] Monocytes/100 WBC (Bld) 7.3 % Normal 2-10 [facility] Comment on above: Order Comment: Campu s: M Performed By: #### L 200.57985 ####[facility] [id number] [place] [address]Fl# [phone] NEUTROPHIL ABS 6.00 K/CU MM Normal 2.0-8.3 [facility] Comment on above: Order Comment: Campu s: M Performed By: #### L 200.76912 ####[facility] [id number] [place] [address] 39[address]Qu# [phone] Neutrophils/100 WBC (Bld) 55.0 % Normal 45-75 [facility] Comment on above: Order Comment: Campu s: M Performed By: #### L 200.77273 ####[facility] [id number] [place], [place] [address]Ph# [phone] Nucleated RBC/100 WBC (Bld) [Ratio] 0.0 % Normal Less than 1 [facility] Comment on above: Order Comment: Campu s: M Performed By: #### L 200.62281 ####[facility] [id number] [place], [place] [address]Vf# [phone] Platelet mean volume (Bld) [Entitic vol] 11.3 fL Normal 9.4-12.4 [facility] Comment on above: Order Comment: Campu s: M Performed By: #### L 200.69360 ####[facility] [id number] [place], [place] [address]Se# [phone] PLT 173 K/CU MM Normal 150-450 [facility] Comment on above: Order Comment: Campu s: M Performed By: #### L 200.06248 ####[facility] [id number] [place] [address] 04[address]Ds# [phone] RBC 4.25 M/CU MM Normal 3.90-5.30 [facility] Comment on above: Order Comment: Campu s: M Performed By: #### L 200.47878 ####[facility] [id number] [place], [place] [address]Fr# [phone] WBC 10.9 K/CUMM Normal 4.5-11.0 [facility] Comment on above: Order Comment: Campu s: M Performed By: #### L 200.92974 ####[facility] [id number] [place] [address] 8[address]Je# [phone] DISCH.SUMon 02-01-2022 DISCH.SUM Normal [facility] [place] GFR ESTon 02-01-2022 IF AMER Greater than 60 Normal [facility] Comment on above: Order Comment: Campu s: M Performed By: #### L 500.04449, L500.65096, L500.46999 ####[facility] [id number] [place], [place] [address]No# [phone] IF non-AFR AMER Greater than 60 Normal [facility] Comment on above: Order Comment: Campu s: M Performed By: #### L 500.37302, L500.59480, L500.25299 ####[facility] [id number] [place], [place] [address]Xh# [phone] GLUCOSE METERon 02-01-2022 Glucose [Mass/Vol] 291 mg/dL High 70-115 [facility] [place] Glucose [Mass/Vol] 89 mg/dL Normal 70-115 [facility] MAGNESIUMon 02-01-2022 Magnesium [Mass/Vol] 2.0 mg/dL Normal 1.6-2.6 [facility] Comment on above: Order Comment: Campu s: M Performed By: #### L 500.80792, L500.63452, L500.74337 ####[facility] [id number] [place], [place] [address]Zx# [phone] BMPon 01-31-2022 Anion gap [Moles/Vol] 12 mmol/L Normal 5-16 [facility] [place] Comment on above: Order Comment: Campu s: M Performed By: #### L 500.72289, L500.58327, L500.55544 ####[facility] [id number] [place], [place] [address]Qj# [phone] Calcium [Mass/Vol] 9.1 mg/dL Normal 8.5-10.5 [facility] Comment on above: Order Comment: Campu s: M Result Comment: NOTE NEW NORMAL RANGE DUE TO REAGENT CHANGE Performed By: #### L 500.73987, L500.12264, L500.06149 ####[facility] [id number] [place], [place] [address]Ru# [phone] Chloride [Moles/Vol] 106 mmol/L Normal 98-107 [facility] Comment on above: Order Comment: Campu s: M Performed By: #### L 500.86826, L500.82725, L500.84118 ####[facility] [id number] [place], [place] [address]Nd# [phone] CO2 [Moles/Vol] 24.0 mmol/L Normal 21-32 [facility] [place] Comment on above: Order Comment: Zach Ricks Performed By: #### L 500.52512, L500.08812, L500.61517 ####[facility] MZBSIYKVFR1761 [place], [place] [address]Rf# [phone] Creatinine [Mass/Vol] 0.61 mg/dL Normal 0.510-0.950 [facility] [place] Comment on above: Order Comment: Zach s: M Result Comment: Cleopatra ents receiving either N-Acetylcysteine (NAC) orMetamizole prior to venipuncture, may have falsely depressedresults. Performed By: #### L 500.85855, L500.21110, L500.12883 ####[facility] EYSPZREFBC7439 [place], [place] [address]Wc# [phone] Glucose [Mass/Vol] 167 mg/dL High 70-100 [facility] Comment on above: Order Comment: Zach s: Millicent Result Comment: Delt a check [id number]- Normal Fasting; 100-125 Impaired Fasting; greaterthan 126 on more than one result- Diabetes. ADA guidelines.Results may be falsely elevated after the administration ofSulfapyridine.Results may be falsely depressed after the administration ofSulfasalazine. Performed By: #### L 500.35040, L500.07102, L500.44307 ####[facility] [id number] [place], [place] [address]Hh# [phone] Potassium [Moles/Vol] 3.7 mmol/L Normal 3.5-5.1 [facility] [place] Comment on above: Order Comment: Zach richter: Millicent Result Comment: Slig ht Hemolysis, Result may be affected. Performed By: #### L 500.14554, L500.60571, L500.97743 ####[facility] [id number] [place], [place] [address]Hz# [phone] Sodium [Moles/Vol] 142 mmol/L Normal 136-145 [facility] [place] Comment on above: Order Comment: Campu s: M Performed By: #### L 500.29729, L500.81155, L500.49962 ####[facility] [id number] [place], [place] [address]Bz# [phone] Urea nitrogen [Mass/Vol] 7 mg/dL Normal 7-26 [facility] [place] Comment on above: Order Comment: Campu s: M Performed By: #### L 500.37114, L500.06536, L500.14627 ####[facility] [id number] [place] [address] 299[address]Ex# [phone] Urea nitrogen/Creatinine [Mass ratio] 11 mg/mg Low 15-24 [facility] Comment on above: Order Comment: Campu s: M Performed By: #### L 500.20410, L500.54989, L500.40517 ####[place] [address]Ph# [phone] CBC W/DIFFon 01-31-2022 BASO ABS 0.10 K/CU MM Normal 0-0.2 [facility] [place] Comment on above: Order Comment: Campu s: M Performed By: #### L 200.95447 ####[address] [address]Pz# [phone] Basophils/100 WBC (Bld) 0.5 % Normal 0-2 [facility] [place] Comment on above: Order Comment: Campu s: M Performed By: #### L 200.49946 ####[facility] [id number] [place] [address] 07[address]Ge# [phone] EOS ABS 0.00 K/CU MM Normal 0-0.5 [facility] [place] Comment on above: Order Comment: Campu s: M Performed By: #### L 200.30074 ####[facility] [id number] [place] [address] 90[address]Pf# [phone] Eosinophils/100 WBC (Bld) 0.1 % Normal 0-5 [facility] [place] Comment on above: Order Comment: Campu s: M Performed By: #### L 200.11874 ####[facility] [id number] [place], [place] [address]Fn# [phone] Erythrocyte distribution width (RBC) [Ratio] 13.9 % Normal 11-14.5 [facility] [place] Comment on above: Order Comment: Campu s: M Performed By: #### L 200.64301 ####[facility] [id number] [place], [place] [address]Ph# [phone] Hematocrit (Bld) [Volume fraction] 37.5 % Normal 35.0-47.0 [facility] [place] Comment on above: Order Comment: Campu s: M Performed By: #### L 200.26787 ####[address] [address]Zp# [phone] Hemoglobin (Bld) [Mass/Vol] 12.3 g/dL Normal 11.5-15.5 [facility] [place] Comment on above: Order Comment: Campu s: M Performed By: #### L 200.55757 ####[place] [address]Ph# [phone] IMMATR GRAN ABS 0.30 K/CU MM Normal Less than 2 [facility] [place] Comment on above: Order Comment: Campu s: M Performed By: #### L 200.28141 ####[facility] [id number] [place], [place] [address]Ph# [phone] IMMATURE GRAN % 1.9 % Normal Less than 2 [facility] [place] Comment on above: Order Comment: Campu s: M Performed By: #### L 200.42681 ####[facility] [id number] [place], [place] [address]Ph# [phone] LYMPH ABS 4.00 K/CU MM Normal 0.9-4.4 [facility] [place] Comment on above: Order Comment: Campu s: M Performed By: #### L 200.67893 ####[facility] [id number] [place], [place] [address]Ph# [phone] Lymphocytes/100 WBC (Bld) 24.8 % Normal 20-40 [facility] [place] Comment on above: Order Comment: Campu s: M Performed By: #### L 200.55279 ####[facility] [id number] [place] [address] 79[address]Sw# [phone] MCHC (RBC) [Mass/Vol] 32.8 g/dL Normal 32.0-36.0 [facility] [place] Comment on above: Order Comment: Campu s: M Performed By: #### L 200.47475 ####[place] [address]Ph# [phone] MCV (RBC) [Entitic vol] 87.6 fL Normal 80.0-99.0 [facility] Comment on above: Order Comment: Campu s: M Performed By: #### L 200.04957 ####[place] [address]Ph# [phone] MONO ABS 1.00 K/CU MM Normal 0.1-1.1 [facility] Comment on above: Order Comment: Campu s: M Performed By: #### L 200.87926 ####[address] [address]Qy# [phone] Monocytes/100 WBC (Bld) 6.2 % Normal 2-10 [facility] Comment on above: Order Comment: Campu s: M Performed By: #### L 200.73467 ####[facility] [id number] [place] [address] 265[address]Mh# [phone] NEUTROPHIL ABS 10.60 K/CU MM High 2.0-8.3 [facility] Comment on above: Order Comment: Campu s: M Performed By: #### L 200.81284 ####[facility] [id number] [place], [place] [address]Ph# [phone] Neutrophils/100 WBC (Bld) 66.5 % Normal 45-75 [facility] [place] Comment on above: Order Comment: Campu s: M Performed By: #### L 200.82260 ####[facility] [id number] [place], [place] [address]St# [phone] Nucleated RBC/100 WBC (Bld) [Ratio] 0.0 % Normal Less than 1 [facility] Comment on above: Order Comment: Campu s: M Performed By: #### L 200.19224 ####[facility] [id number] [place], [place] [address]Fm# [phone] Platelet mean volume (Bld) [Entitic vol] 12.0 fL Normal 9.4-12.4 [facility] Comment on above: Order Comment: Campu s: M Performed By: #### L 200.38300 ####[facility] AKAXTFJGRC5461 [place], [place] [address]Yq# [phone] PLT 183 K/CU MM Normal 150-450 [facility] Comment on above: Order Comment: Campu s: M Performed By: #### L 200.25544 ####[facility] [id number] [place], [place] [address]Gd# [phone] RBC 4.28 M/CU MM Normal 3.90-5.30 [facility] Comment on above: Order Comment: Campu s: M Performed By: #### L 200.30763 ####[facility] [id number] [place], [place] [address]Er# [phone] WBC 16.0 K/CUMM High 4.5-11.0 [facility] Comment on above: Order Comment: Campu s: M Performed By: #### L 200.87782 ####[facility] [id number] [place] [address] 16[address]Bq# [phone] GFR ESTon 01-31-2022 IF AMER Greater than 60 Normal [facility] Comment on above: Order Comment: Campu s: M Performed By: #### L 500.11034, L500.50491, L500.06709 ####[facility] LCCAOISMON5672 [place], [place] [address]Ie# [phone] IF non-AFR AMER Greater than 60 Normal [facility] Comment on above: Order Comment: Campu s: M Performed By: #### L 500.34303, L500.13195, L500.43589 ####[facility] QSLQBGKJKR9486 [place], [place] [address]Ai# [phone] GLUCOSE METERon 01-31-2022 Glucose [Mass/Vol] 233 mg/dL High 70-115 [facility] [place] Glucose [Mass/Vol] 216 mg/dL High 70-115 [facility] [place] Glucose [Mass/Vol] 171 mg/dL High 70-115 [facility] [place] Glucose [Mass/Vol] 230 mg/dL High 70-115 [facility] [place] Glucose [Mass/Vol] 284 mg/dL High 70-115 [facility] [place] MAGNESIUMon 01-31-2022 Magnesium [Mass/Vol] 1.8 mg/dL Normal 1.6-2.6 [facility] Comment on above: Order Comment: Campu s: M Performed By: #### L 500.78192, L500.93661, L500.00473 ####[facility] [id number] [place], [place] [address]Uf# [phone] PROG IMSon 01-31-2022 PROG IMS Normal [facility] Progress Note-Hospitalist Normal [facility] BMPon 01-30-2022 Anion gap [Moles/Vol] 8 mmol/L Normal 5-16 [facility] Comment on above: Order Comment: Campu s: M Performed By: #### L 500.67482, L500.53223 ####[facility] YRYVZQPPSS3320 [place], [place] [address]Pg# [phone] Calcium [Mass/Vol] 8.7 mg/dL Normal 8.5-10.5 [facility] Comment on above: Order Comment: Campu s: M Result Comment: NOTE NEW NORMAL RANGE DUE TO REAGENT CHANGE Performed By: #### L 500.89784, L500.10899 ####[facility] KDVGZYZFRZ3446 [place], [place] [address]Hl# [phone] Chloride [Moles/Vol] 114 mmol/L High 98-107 [facility] Comment on above: Order Comment: Benjiu s: M Performed By: #### L 500.67596, L500.41993 ####[facility] [id number] [place], [place] [address]Tt# [phone] CO2 [Moles/Vol] 22.0 mmol/L Normal 21-32 [facility] Comment on above: Order Comment: Campu s: M Performed By: #### L 500.09036, L5.12156 ####[facility] [id number] [place], [place] [address]Te# [phone] Creatinine [Mass/Vol] 0.68 mg/dL Normal 0.510-0.950 [facility] Comment on above: Order Comment: Benjiu s: M Result Comment: Cleopatra ents receiving either N-Acetylcysteine (NAC) orMetamizole prior to venipuncture, may have falsely depressedresults. Performed By: #### L 500.52985, L5.66116 ####[facility] LZAPSQOWDY2751 [place], [place] [address]Yq# [phone] Glucose [Mass/Vol] 87 mg/dL Normal 70-100 [facility] Comment on above: Order Comment: Benjiu s: M Result Comment: 70-1 00- Normal Fasting; 100-125 Impaired Fasting; greaterthan 126 on more than one result- Diabetes. ADA guidelines.Results may be falsely elevated after the administration ofSulfapyridine.Results may be falsely depressed after the administration ofSulfasalazine. Performed By: #### L 500.53874, L500.14563 ####[facility] [id number] [place], [place] [address]Gb# [phone] Potassium [Moles/Vol] 3.2 mmol/L Low 3.5-5.1 [facility] Comment on above: Order Comment: Benjiu s: M Result Comment: Slig ht Hemolysis, Result may be affected. Performed By: #### L 500.74699, L500.48964 ####[facility] EXUDCUSAGZ0188 [place], [place] [address]Mc# [phone] Sodium [Moles/Vol] 144 mmol/L Normal 136-145 [facility] [place] Comment on above: Order Comment: Campu s: M Performed By: #### L 500.02215, L500.74768 ####[facility] FUPRDQXZPI1153 [place], [place] [address]Rf# [phone] Urea nitrogen [Mass/Vol] 14 mg/dL Normal 7-26 [facility] [place] Comment on above: Order Comment: Campu s: M Performed By: #### L 500.64498, L500.06937 ####[facility] [id number] [place], [place] [address]Nr# [phone] Urea nitrogen/Creatinine [Mass ratio] 20 mg/mg Normal 15-24 [facility] Comment on above: Order Comment: Campu s: M Performed By: #### L 500.69281, L500.09635 ####[facility] [id number] [place], [place] [address]Of# [phone] Anion gap [Moles/Vol] 5 mmol/L Normal 5-16 [facility] [place] Comment on above: Order Comment: Campu s: M Performed By: #### L 500.59006, L500.40944 ####[facility] [id number] [place], [place] [address]Nx# [phone] Calcium [Mass/Vol] 9.0 mg/dL Normal 8.5-10.5 [facility] [place] Comment on above: Order Comment: Campu s: M Result Comment: NOTE NEW NORMAL RANGE DUE TO REAGENT CHANGE Performed By: #### L 500.60593, L500.54254 ####[facility] REFXHKHESK0777 [place], [place] [address]Ve# [phone] Chloride [Moles/Vol] 114 mmol/L High 98-107 [facility] [place] Comment on above: Order Comment: Campu s: M Result Comment: Delt a check reviewed Performed By: #### L 500.91802, L500.90581 ####[facility] VRIDKSNIZC8238 [place], [place] [address]Fp# [phone] CO2 [Moles/Vol] 22.0 mmol/L Normal 21-32 [facility] Comment on above: Order Comment: Zach s: M Result Comment: Delt a check reviewed Performed By: #### L 500.11961, L500.85451 ####[facility] PWWFJMNURI7994 [place], [place] [address]Wu# [phone] Creatinine [Mass/Vol] 0.74 mg/dL Normal 0.510-0.950 [facility] Comment on above: Order Comment: Zach s: M Result Comment: Cleopatra ents receiving either N-Acetylcysteine (NAC) orMetamizole prior to venipuncture, may have falsely depressedresults. Performed By: #### L 500.18284, L500.67096 ####[facility] [id number] [place] [address]Lt# [phone] Glucose [Mass/Vol] 95 mg/dL Normal 70-100 [facility] Comment on above: Order Comment: Zach s: M Result Comment: 70-1 00- Normal Fasting; 100-125 Impaired Fasting; greaterthan 126 on more than one result- Diabetes. ADA guidelines.Results may be falsely elevated after the administration ofSulfapyridine.Results may be falsely depressed after the administration ofSulfasalazine. Performed By: #### L 500.25329, L500.41475 ####[facility] BQHZOPXJJV5633 [place], [place] [address]Zr# [phone] Potassium [Moles/Vol] 3.6 mmol/L Normal 3.5-5.1 [facility] Comment on above: Order Comment: Zach s: M Performed By: #### L 500.99483, L500.34762 ####[facility] SUKVNWRQLL6266 [place], [place] [address]Co# [phone] Sodium [Moles/Vol] 141 mmol/L Normal 136-145 [facility] [place] Comment on above: Order Comment: Campu s: M Performed By: #### L 500.42184, L500.11205 ####[facility] [id number] [place] [address]Gf# [phone] Urea nitrogen [Mass/Vol] 18 mg/dL Normal 7-26 [facility] Comment on above: Order Comment: Campu s: M Performed By: #### L 500.00979, L500.61059 ####[facility] [id number] [place] [address]Ua# [phone] Urea nitrogen/Creatinine [Mass ratio] 24 mg/mg Normal 15-24 [facility] Comment on above: Order Comment: Campu s: M Performed By: #### L 500.78581, L500.66468 ####[facility] [id number] [place], [place] [address]Ph# [phone] CBC W/DIFFon 01-30-2022 BASO ABS 0.00 K/CU MM Normal 0-0.2 [facility] [place] Comment on above: Order Comment: Benjiu s: MRN/MD Draw Performed By: #### L 200.39839 ####[facility] [id number] [place] [address]Oa# [phone] Basophils/100 WBC (Bld) 0.2 % Normal 0-2 [facility] [place] Comment on above: Order Comment: Benjiu s: MRN/MD Draw Performed By: #### L 200.78193 ####[facility] [id number] [place] [address]Vt# [phone] EOS ABS 0.00 K/CU MM Normal 0-0.5 [facility] [place] Comment on above: Order Comment: Benjiu s: MRN/MD Draw Performed By: #### L 200.19561 ####[facility] [id number] [place] [address]Ka# [phone] Eosinophils/100 WBC (Bld) 0.0 % Normal 0-5 [facility] Comment on above: Order Comment: Campu s: MRN/MD Draw Performed By: #### L 200.63143 ####[facility] [id number] [place], [place] [address]Oj# [phone] Erythrocyte distribution width (RBC) [Ratio] 14.3 % Normal 11-14.5 [facility] [place] Comment on above: Order Comment: Campu s: MRN/MD Draw Performed By: #### L 200.11382 ####[facility] [id number] [place], [place] [address]Ph# [phone] Hematocrit (Bld) [Volume fraction] 34.4 % Low 35.0-47.0 [facility] Comment on above: Order Comment: Campu s: MRN/MD Draw Performed By: #### L 200.24105 ####[facility] [id number] [place] [id number]# [phone] Hemoglobin (Bld) [Mass/Vol] 11.3 g/dL Low 11.5-15.5 [facility] [place] Comment on above: Order Comment: Campu s: MRN/MD Draw Performed By: #### L 200.40301 ####[facility] [id number] [place], [place] [address]Ph# [phone] IMMATR GRAN ABS 0.20 K/CU MM Normal Less than 2 [facility] [place] Comment on above: Order Comment: Campu s: MRN/MD Draw Performed By: #### L [id number] ####[facility] [id number] [place], [place] [id number]# [phone] IMMATURE GRAN % 0.8 % Normal Less than 2 [facility] [place] Comment on above: Order Comment: Campu s: MRN/MD Draw Performed By: #### L [id number] ####[facility] [id number] [place], [place] [address]Gy# [phone] LYMPH ABS 2.20 K/CU MM Normal 0.9-4.4 [facility] [place] Comment on above: Order Comment: Campu s: MRN/MD Draw Performed By: #### L [id number] ####[facility] [id number] [place], [place] [address]Zw# [phone] Lymphocytes/100 WBC (Bld) 9.0 % Low 20-40 [facility] [place] Comment on above: Order Comment: Campu s: MRN/MD Draw Performed By: #### L [id number] ####[facility] [id number] [place], [place] [id number]# [phone] MCHC (RBC) [Mass/Vol] 32.8 g/dL Normal 32.0-36.0 [facility] [place] Comment on above: Order Comment: Campu s: MRN/MD Draw Performed By: #### L [id number] ####[facility] [id number] [place], [place] [address]Uh# [phone] MCV (RBC) [Entitic vol] 88.0 fL Normal 80.0-99.0 [facility] [place] Comment on above: Order Comment: Campu s: MRN/MD Draw Performed By: #### L 200.12909 ####[facility] [id number] [place], [place] [id number]# [phone] MONO ABS 1.60 K/CU MM High 0.1-1.1 [facility] [place] Comment on above: Order Comment: Campu s: MRN/MD Draw Performed By: #### L 200.68387 ####[facility] [id number] [place], [place] [address]Ph# [phone] Monocytes/100 WBC (Bld) 6.5 % Normal 2-10 [facility] [place] Comment on above: Order Comment: Campu s: MRN/MD Draw Performed By: #### L 200.42732 ####[facility] [id number] [place] [address]Fz# [phone] NEUTROPHIL ABS 20.60 K/CU MM High 2.0-8.3 [facility] [place] Comment on above: Order Comment: Campu s: MRN/MD Draw Performed By: #### L 200.44204 ####[facility] [id number] [place], [place] [address]Pz# [phone] Neutrophils/100 WBC (Bld) 83.5 % High 45-75 [facility] [place] Comment on above: Order Comment: Campu s: MRN/MD Draw Performed By: #### L 200.78105 ####[facility] [id number] [place], [place] [address]Vz# [phone] Nucleated RBC/100 WBC (Bld) [Ratio] 0.0 % Normal Less than 1 [facility] [place] Comment on above: Order Comment: Campu s: MRN/MD Draw Performed By: #### L 200.78287 ####[facility] [id number] [place] [id number]# [phone] Platelet mean volume (Bld) [Entitic vol] 12.0 fL Normal 9.4-12.4 [facility] [place] Comment on above: Order Comment: Campu s: MRN/MD Draw Performed By: #### L 200.21867 ####[facility] [id number] [place], [place] [address]Cx# [phone] PLT 198 K/CU MM Normal 150-450 [facility] [place] Comment on above: Order Comment: Campu s: MRN/MD Draw Performed By: #### L 200.71625 ####[facility] [id number] [place], [place] [address]Lg# [phone] RBC 3.91 M/CU MM Normal 3.90-5.30 [facility] [place] Comment on above: Order Comment: Campu s: MRN/MD Draw Performed By: #### L 200.14484 ####[facility] UCMYTYVLER2949 [place], [place] [address]Jw# [phone] WBC 24.7 K/CUMM High 4.5-11.0 [facility] [place] Comment on above: Order Comment: Campu s: MRN/MD Draw Performed By: #### L 200.67180 ####[facility] [id number] [place], [place] [address]Ph# [phone] GFR ESTon 01-30-2022 IF AMER Greater than 60 Normal [facility] [place] Comment on above: Order Comment: Campu s: M Performed By: #### L 500.23519, L500.83802 ####[facility] [id number] [place], [place] [address]Ae# [phone] IF non-AFR AMER Greater than 60 Normal [facility] [place] Comment on above: Order Comment: Campu s: M Performed By: #### L 500.23542, L500.64084 ####[facility] [id number] [place], [place] [address]Yd# [phone] IF AMER Greater than 60 Normal [facility] [place] Comment on above: Order Comment: Campu s: M Performed By: #### L 500.77071, L500.38943 ####[facility] [id number] [place] [address]Aw# [phone] IF non-AFR AMER Greater than 60 Normal [facility] [place] Comment on above: Order Comment: Campu s: M Performed By: #### L 500.21318, L500.62231 ####[facility] [id number] [place], [place] [address]Ip# [phone] GLUCOSE METERon 01-30-2022 Glucose [Mass/Vol] 214 mg/dL High 70-115 [facility] [place] Glucose [Mass/Vol] 219 mg/dL High 70-115 [facility] [place] Glucose [Mass/Vol] 114 mg/dL Normal 70-115 [facility] [place] Glucose [Mass/Vol] 125 mg/dL High 70-115 [facility] [place] Glucose [Mass/Vol] 120 mg/dL High 70-115 [facility] [place] Glucose [Mass/Vol] 86 mg/dL Normal 70-115 [facility] [place] Glucose [Mass/Vol] 134 mg/dL High 70-115 [facility] [place] Glucose [Mass/Vol] 105 mg/dL Normal 70-115 [facility] [place] Glucose [Mass/Vol] 94 mg/dL Normal 70-115 [facility] [place] Glucose [Mass/Vol] 189 mg/dL High 70-115 [facility] [place] Glucose [Mass/Vol] 122 mg/dL High 70-115 [facility] [place] Glucose [Mass/Vol] 188 mg/dL High 70-115 [facility] [place] Glucose [Mass/Vol] 206 mg/dL High 70-115 [facility] 01-30-2022 Magnesium [Mass/Vol] 1.9 mg/dL Normal 1.6-2.6 [facility] Comment on above: Order Comment: Zach s: MRN/ Draw Performed By: #### L 500.89449, L500.03994 ####[facility] [id number] [place], [place] [address]Ry# [phone] PHOSon 01-30-2022 Phosphate [Mass/Vol] 2.20 mg/dL Low 2.5-4.9 [facility] Comment on above: Order Comment: Zach s: MRN/MD Draw Result Comment: Elev ated m-protein (paraprotein) levels in the serum may beexhibited in patients with monoclonal gammopathies, causingfalsely elevated inorganic phosphorus results. Performed By: #### L 500.59550, L500.50159 ####[facility] [id number] [place], [place] [address]Vt# [phone] PROG IMSon 01-30-2022 PROG IMS Normal [facility] Progress Note-Hospitalist Normal [facility] PROG.INTENon 01-30-2022 PROG.INTEN Normal [facility] Progress Note-Motion Picture Director Normal [facility] BETA-HYDRO BUTon 01-29-2022 BETA-HYDRO BUT 3.92 MMOL/L High 0.02-0.27 [facility] Comment on above: Order Comment: Zach richter: Millicent Result Comment: Rudolph ortiz ketone levels will vary depending on several factors(for example, food intake, alcohol intake and conditionssuch as ketoacidosis). Patients should be fasting 12 hoursprior to collection.PATIENT SAMPLES WITH HIGH LEVELS OF M-PROTEIN (I.E.GAMMOPATHY) MAY AFFECT THE ACCURACY OF THIS ASSAY. Performed By: #### L 500.84199 ####[facility] [id number] [place], [place] [address]Ci# [phone] BMPon 01-29-2022 Anion gap [Moles/Vol] 18 mmol/L High 5-16 [facility] [place] Comment on above: Order Comment: Campu s: M Performed By: #### L 500.18210, L500.72458, L500.50257, L500.38232, L500.26620 ####[facility] [id number] [place], [place] [address]Ba# [phone] Calcium [Mass/Vol] 9.9 mg/dL Normal 8.5-10.5 [facility] Comment on above: Order Comment: Campu s: M Result Comment: NOTE NEW NORMAL RANGE DUE TO REAGENT CHANGE Performed By: #### L 500.17011, L500.07027, L500.38436, L500.75044, L500.94566 ####[facility] [id number] [place], [place] [address]Ym# [phone] Chloride [Moles/Vol] 103 mmol/L Normal 98-107 [facility] Comment on above: Order Comment: Campu s: M Performed By: #### L 500.34517, L500.55378, L500.30511, L500.97390, L500.19519 ####[facility] [id number] [place], [place] [address]Os# [phone] CO2 [Moles/Vol] 15.0 mmol/L Low 21-32 [facility] Comment on above: Order Comment: Campu s: M Performed By: #### L 500.83532, L500.23506, L500.80667, L500.81034, L500.53907 ####[facility] [id number] [place], [place] [address]Gb# [phone] Creatinine [Mass/Vol] 0.71 mg/dL Normal 0.510-0.950 [facility] [place] Comment on above: Order Comment: Campu s: M Result Comment: Cleopatra ents receiving either N-Acetylcysteine (NAC) orMetamizole prior to venipuncture, may have falsely depressedresults. Performed By: #### L 500.91573, L500.95418, L500.91404, L500.84831, L500.37192 ####[facility] [id number] [place], [place] [address]Gm# [phone] Glucose [Mass/Vol] 412 mg/dL High 70-100 [facility] Comment on above: Order Comment: Campu s: M Result Comment: 70-1 00- Normal Fasting; 100-125 Impaired Fasting; greaterthan 126 on more than one result- Diabetes. ADA guidelines.Results may be falsely elevated after the administration ofSulfapyridine.Results may be falsely depressed after the administration ofSulfasalazine. Performed By: #### L 500.71297, L500.51755, L500.38317, L500.62112, L500.61178 ####[facility] [id number] [place], [place] [address]Pn# [phone] Potassium [Moles/Vol] 4.2 mmol/L Normal 3.5-5.1 [facility] Comment on above: Order Comment: Campu s: M Performed By: #### L 500.62488, L500.17850, L500.35180, L500.48376, L500.30379 ####[facility] [id number] [place], [place] [address]Sa# [phone] Sodium [Moles/Vol] 136 mmol/L Normal 136-145 [facility] Comment on above: Order Comment: Campu s: M Performed By: #### L 500.42687, L500.84266, L500.61058, L500.97441, L500.12598 ####[facility] [id number] [place], [place] [address]Cl# [phone] Urea nitrogen [Mass/Vol] 23 mg/dL Normal 7-26 [facility] Comment on above: Order Comment: Campu s: M Performed By: #### L 500.01139, L500.25052, L500.10097, L500.15561, L500.40810 ####[facility] [id number] [place], [place] [address]Qt# [phone] Urea nitrogen/Creatinine [Mass ratio] 32 mg/mg High 15-24 [facility] [place] Comment on above: Order Comment: Campu s: M Performed By: #### L 500.90938, L500.72699, L500.41276, L500.68267, L500.13995 ####[facility] [id number] [place] [id number]# [phone] CBC W/DIFFon 01-29-2022 BASO ABS 0.00 K/CU MM Normal 0-0.2 [facility] [place] Comment on above: Order Comment: Campu s: M Performed By: #### L 200.01296 ####[facility] [id number] [place], [place] [address]Ph# [phone] Basophils/100 WBC (Bld) 0.1 % Normal 0-2 [facility] [place] Comment on above: Order Comment: Campu s: M Performed By: #### L 200.13430 ####[facility] [id number] [place] [address]Jb# [phone] EOS ABS 0.00 K/CU MM Normal 0-0.5 [facility] [place] Comment on above: Order Comment: Campu s: M Performed By: #### L 200.85016 ####[facility] [id number] [place] [address]Rg# [phone] Eosinophils/100 WBC (Bld) 0.1 % Normal 0-5 [facility] [place] Comment on above: Order Comment: Campu s: M Performed By: #### L 200.11155 ####[facility] [id number] [place], [place] [address]Ph# [phone] Erythrocyte distribution width (RBC) [Ratio] 13.6 % Normal 11-14.5 [facility] [place] Comment on above: Order Comment: Campu s: M Performed By: #### L 200.03301 ####[facility] [id number] [place] [address]Xr# [phone] Hematocrit (Bld) [Volume fraction] 38.7 % Normal 35.0-47.0 [facility] Comment on above: Order Comment: Campu s: M Performed By: #### L 200.85192 ####[facility] [id number] [place], [place] [address]Ph# [phone] Hemoglobin (Bld) [Mass/Vol] 12.6 g/dL Normal 11.5-15.5 [facility] Comment on above: Order Comment: Campu s: M Performed By: #### L 200.48584 ####[address] [address]Zd# [phone] IMMATR GRAN ABS 0.10 K/CU MM Normal Less than 2 [facility] [place] Comment on above: Order Comment: Campu s: M Performed By: #### L 200.26178 ####[facility] [id number] [place], [place] [address]Ph# [phone] IMMATURE GRAN % 0.8 % Normal Less than 2 [facility] [place] Comment on above: Order Comment: Campu s: M Performed By: #### L 200.91612 ####[facility] [id number] [place], [place] [address]Ph# [phone] LYMPH ABS 0.80 K/CU MM Low 0.9-4.4 [facility] [place] Comment on above: Order Comment: Campu s: M Performed By: #### L 200.59759 ####[facility] [id number] [place], [place] [address]Ph# [phone] Lymphocytes/100 WBC (Bld) 4.4 % Low 20-40 [facility] Comment on above: Order Comment: Campu s: M Performed By: #### L 200.91423 ####[facility] OESIMVZGWV8348 [place] [id number]# [phone] MCHC (RBC) [Mass/Vol] 32.6 g/dL Normal 32.0-36.0 [facility] [place] Comment on above: Order Comment: Campu s: M Performed By: #### L 200.66055 ####[facility] [id number] [place] [address]Jg# [phone] MCV (RBC) [Entitic vol] 86.4 fL Normal 80.0-99.0 [facility] [place] Comment on above: Order Comment: Campu s: M Performed By: #### L 200.62656 ####[place] [address]Ph# [phone] MONO ABS 0.30 K/CU MM Normal 0.1-1.1 [facility] Comment on above: Order Comment: Campu s: M Performed By: #### L 200.03634 ####[facility] [id number] [place], [place] [address]Ph# [phone] Monocytes/100 WBC (Bld) 1.7 % Low 2-10 [facility] Comment on above: Order Comment: Campu s: M Performed By: #### L 200.02512 ####[facility] [id number] [place], [place] [address]Ph# [phone] NC/NC NORMOCYTIC Normal [facility] Comment on above: Order Comment: Campu s: M Performed By: #### L 200.92438 ####[facility] [id number] [place], [place] [address]Ph# [phone] NEUTROPHIL ABS 17.00 K/CU MM High 2.0-8.3 [facility] Comment on above: Order Comment: Campu s: M Performed By: #### L 200.71352 ####[facility] [id number] [place], [place] [address]Ph# [phone] Neutrophils/100 WBC (Bld) 92.9 % High 45-75 [facility] [place] Comment on above: Order Comment: Campu s: M Performed By: #### L 200.40720 ####[facility] [id number] [place], [place] [address]Nk# [phone] Nucleated RBC/100 WBC (Bld) [Ratio] 0.0 % Normal Less than 1 [facility] Comment on above: Order Comment: Campu s: M Performed By: #### L 200.54270 ####[facility] [id number] [place] [address]Ja# [phone] Platelet mean volume (Bld) [Entitic vol] 13.5 fL High 9.4-12.4 [facility] Comment on above: Order Comment: Campu s: M Performed By: #### L 200.08770 ####[facility] [id number] [place], [place] [address]Fr# [phone] PLT 174 K/CU MM Normal 150-450 [facility] Comment on above: Order Comment: Campu s: M Performed By: #### L 200.72593 ####[facility] [id number] [place] [address]Ol# [phone] PLT EST ADEQUATE Normal [facility] Comment on above: Order Comment: Campu s: M Performed By: #### L 200.72275 ####[facility] [id number] [place], [place] [address]Dp# [phone] RBC 4.48 M/CU MM Normal 3.90-5.30 [facility] Comment on above: Order Comment: Campu s: M Performed By: #### L 200.78818 ####[facility] [id number] [place], [place] [address]He# [phone] WBC 18.3 K/CUMM High 4.5-11.0 [facility] Comment on above: Order Comment: Campu s: M Performed By: #### L 200.47450 ####[facility] [id number] [place] [address]Br# [phone] CONS.INTENon 01-29-2022 CONS.INTEN Normal [facility] Consultation-Intensivi st Normal [facility] [place] Stacie 01-29-2022 EMERGENCY PHYSICIAN REPORT This is a preliminary report only, as the practitioner review and authentication has not occurred. Normal [facility] [place] ER Normal [facility] [place] GFR ESTon 01-29-2022 IF AMER Greater than 60 [facility] Comment on above: Order Comment: Campu s: M Performed By: #### L 500.53694, L500.10583, L500.75994, L500.68153, L500.88661 ####[facility] [id number] [place], [place] [address]Uv# [phone] IF non-AFR AMER Greater than 60 [facility] Comment on above: Order Comment: Campu s: M Performed By: #### L 500.44566, L500.48146, L500.73902, L500.99717, L500.71089 ####[facility] [id number] [place], [place] [address]Ne# [phone] GLUCOSE METERon 01-29-2022 Glucose [Mass/Vol] 135 mg/dL High 70-115 [facility] [place] Glucose [Mass/Vol] 146 mg/dL High 70-115 [facility] [place] Glucose [Mass/Vol] 141 mg/dL High 70-115 [facility] [place] Glucose [Mass/Vol] 117 mg/dL High 70-115 [facility] [place] Glucose [Mass/Vol] 151 mg/dL High 70-115 [facility] [place] Glucose [Mass/Vol] 221 mg/dL High 70-115 [facility] [place] Glucose [Mass/Vol] 286 mg/dL High 70-115 [facility] [place] Glucose [Mass/Vol] 382 mg/dL High 70-115 [facility] [place] Glucose [Mass/Vol] 402 mg/dL High 70-115 [facility] [place] HCGon 01-29-2022 HCG SER RESULT Negative Normal NEGATIVE [facility] Comment on above: Order Comment: Campu s: M Performed By: #### L 500.99671, L500.65690, L500.82560, L500.57229, L500.75460 ####[facility] [id number] [place], [place] [address]Sz# [phone] HP.IMS.ADMon 01-29-2022 Admission-H&P Normal [facility] HP.IMS.ADM Normal [facility] LIPASEon 01-29-2022 Lipase [Catalytic activity/Vol] 22 U/L Normal 12-60 [facility] Comment on above: Order Comment: Campu s: M Result Comment: NOTE NEW NORMAL RANGE DUE TO REAGENT CHANGE Performed By: #### L 500.72518, L500.90719, L500.64353, L500.92621, L500.38478 ####[facility] [id number] [place], [place] [address]Ip# [phone] LIVERon 01-29-2022 Albumin [Mass/Vol] 4.5 g/dL Normal 3.2-5.0 [facility] Comment on above: Order Comment: Campu s: M Performed By: #### L 500.43674, L500.92518, L500.39129, L500.10253, L500.63048 ####[facility] [id number] [place], [place] [address]Ax# [phone] Albumin/Globulin [Mass ratio] 1.7 {ratio} Normal 0.8-2.0 [facility] Comment on above: Order Comment: Campu s: M Performed By: #### L 500.13856, L500.32247, L500.53974, L500.26745, L500.56481 ####[facility] [id number] [place], [place] [address]Vd# [phone] ALK PHOS 104 U/L Normal 45-117 [facility] Comment on above: Order Comment: Campu s: M Performed By: #### L 500.13373, L500.98069, L500.04551, L500.54116, L500.73220 ####[facility] [id number] [place], [place] [address]Yo# [phone] ALT [Catalytic activity/Vol] 28 U/L Normal 13-61 [facility] [place] Comment on above: Order Comment: Zach s: M Result Comment: RESU LTS MAY BE FALSELY DEPRESSED AFTER THE ADMINISTRATION OFSULFASALAZINE AND/OR SULFAPYRIDINE. Performed By: #### L 500.57645, L500.11537, L500.50343, L500.42440, L500.17689 ####[facility] [id number] [place], [place] [address]Ac# [phone] AST [Catalytic activity/Vol] 24 U/L Normal 8-34 [facility] [place] Comment on above: Order Comment: Zach s: M Result Comment: RESU LTS MAY BE FALSELY DEPRESSED AFTER THE ADMINISTRATION OFSULFASALAZINE AND/OR SULFAPYRIDINE. Performed By: #### L 500.58963, L500.63424, L500.60810, L500.55725, L500.34562 ####[facility] [id number] [place], [place] [address]Zs# [phone] BILI DIRECT 0.3 MG/DL Normal 0.00-0.36 [facility] Comment on above: Order Comment: Zach s: Millicent Result Comment: NOTE NEW NORMAL RANGE DUE TO REAGENT CHANGE Performed By: #### L 500.95226, L500.99123, L500.79660, L500.54999, L500.85036 ####[facility] [id number] [place], [place] [address]Zs# [phone] BILI TOTAL 0.90 MG/DL Normal 0.2-1.0 [facility] [place] Comment on above: Order Comment: Zach richter: Millicent Performed By: #### L 500.50986, L500.48263, L500.93934, L500.47679, L500.65630 ####[facility] [id number] [place], [place] [address]Hj# [phone] Globulin (S) [Mass/Vol] 2.7 g/dL Normal 2.2-4.2 [facility] Comment on above: Order Comment: Campu s: M Performed By: #### L 500.91396, L500.96265, L500.00700, L500.89503, L500.12746 ####[facility] NVCCISVHXQ7871 [place], [place] [address]Fi# [phone] Protein [Mass/Vol] 7.2 g/dL Normal 6.0-8.5 [facility] Comment on above: Order Comment: Campu s: M Performed By: #### L 500.96859, L500.42405, L500.60014, L500.49177, L500.90345 ####[facility] [id number] [place], [place] [address]Qr# [phone] MRSA PCRon 01-29-2022 MRSA PCR Negative Normal NEGATIVE [facility] Comment on above: Order Comment: Zach s: M Result Comment: PLEA SE NOTE: TESTING DONE BY PCR TECHNOLOGY.The SA Nasal complete MRSA assay on the iWelcome GeneXperthas not been validated for use on patients under 21 years ofage. All patients under 21 years of age, run on theMoSoXpert will be confirmed by a Blood [place] plate, followedby an SHINE, to confirm MRSA. Performed By: #### L 770.65051 ####[facility] [id number] [place], [place] [address]Ic# [phone] SA PCR Positive High NEGATIVE [facility] Comment on above: Order Comment: Zach s: M Result Comment: PLEA SE NOTE: TESTING DONE BY PCR TECHNOLOGY. Performed By: #### L 770.16325 ####[facility] [id number] [place] [address]Ln# [phone] PORTABLE CHESTon 01-29-2022 PORTABLE CHEST Normal [facility] [id number] 01-29-2022 SARS-CoV-2 (COVID-19) RNA DANIEL+probe Ql (Unsp spec) Negative Invalid Interpretation Code Negative [facility] Comment on above: Order Comment: Zach s: M Result Comment: RESU LTS CALLED TO AND READ BACK BY MARY UAAT 1039 01/29/22 BY ELIDA ROJASNegative results do not preclude SARS-CoV-2 infection andshould not be used as the sole basis for treatment or otherpatient management decisions. Negative results must becombined with clinical observation, patient history, andepidemiological information.This test was performed by PCR. Performed By: #### L 770.64615 ####[facility] [id number] [place], [place] [address]Lc# [phone] UA COMPLETEon 01-29-2022 Color (U) Straw Normal [facility] Comment on above: Order Comment: Campu s: M Performed By: #### L 600.07504 ####[address] [address]Mw# [phone] Glucose (U) [Mass/Vol] 500 mg/dL Normal NORMAL [facility] [place] Comment on above: Order Comment: Campu s: M Performed By: #### L [id number] ####[facility] [id number] [place] [address]Bd# [phone] UA APPEARANCE Clear Normal CLEAR [facility] Comment on above: Order Comment: Campu s: M Performed By: #### L [id number] ####[facility] [id number] [place] [address]Zw# [phone] UA BILIRUBIN Negative Normal NEGATIVE [facility] Comment on above: Order Comment: Campu s: M Performed By: #### L 600.68233 ####[facility] [id number] [place] [address]Wl# [phone] UA BLOOD Negative Normal NEGATIVE [facility] Comment on above: Order Comment: Campu s: M Performed By: #### L 600.80430 ####[facility] [id number] [place] [address]Xj# [phone] UA KETONE 80 Normal NEGATIVE [facility] Comment on above: Order Comment: Campu s: M Performed By: #### L [id number] ####[facility] [id number] [place], [place] [address]Uw# [phone] UA LK ESTERASE Negative Normal NEGATIVE [facility] Comment on above: Order Comment: Campu s: M Performed By: #### L 600.72656 ####[facility] [id number] [place], [place] [address]Rm# [phone] UA NITRITE Negative Normal NEGATIVE [facility] Comment on above: Order Comment: Campu s: M Performed By: #### L 600.11460 ####[facility] [id number] [place] [address] 22594Ns# [phone] UA PH 6.0 Normal 5-6 [facility] Comment on above: Order Comment: Campu s: M Performed By: #### L 600.33224 ####[facility] [id number] [place] [address] 34990Mj# [phone] UA PROTEIN Negative Normal NEGATIVE [facility] Comment on above: Order Comment: Campu s: M Performed By: #### L 600.86076 ####[facility] [id number] [place] [address] 07287Ez# [phone] UA SPEC GRAV 1.028 Normal 1.005-1.030 [facility] Comment on above: Order Comment: Campu s: M Performed By: #### L 600.11783 ####[facility] [id number] [place] [address] 01136Gp# [phone] UA UROBILINOGEN Negative Normal NORMAL [facility] Comment on above: Order Comment: Campu s: M Performed By: #### L 600.21678 ####[facility] [id number] [place] [address] 69566Zc# [phone] VBG PHon 01-29-2022 VBG PH 7.36 MMHG Normal 7.31-7.41 [facility] Comment on above: Order Comment: Campu s: M Performed By: #### L 100.04972 ####[facility] [id number] [place] [address] 07888Me# [phone] BMPon 12-30-2021 Anion gap [Moles/Vol] 4 mmol/L Low 5-16 [facility] [place] Comment on above: Order Comment: Campu s: M Performed By: #### L 500.17469, L500.72835 ####[facility] [id number] [place], [place] [address]Jb# [phone] Calcium [Mass/Vol] 8.8 mg/dL Normal 8.5-10.5 [facility] Comment on above: Order Comment: Campu s: M Result Comment: NOTE NEW NORMAL RANGE DUE TO REAGENT CHANGE Performed By: #### L 500.07116, L500.55137 ####[facility] [id number] [place], [place] [address]Sb# [phone] Chloride [Moles/Vol] 109 mmol/L High 98-107 [facility] Comment on above: Order Comment: Campu s: M Performed By: #### L 500.16342, L500.41129 ####[facility] [id number] [place] [address] 86503Nn# [phone] CO2 [Moles/Vol] 28.0 mmol/L Normal 21-32 [facility] Comment on above: Order Comment: Campu s: M Performed By: #### L 500.73817, L500.75780 ####[facility] [id number] [place], [place] [address]Cc# [phone] Creatinine [Mass/Vol] 0.64 mg/dL Normal 0.510-0.950 [facility] Comment on above: Order Comment: Campu s: M Result Comment: Cleopatra ents receiving either N-Acetylcysteine (NAC) orMetamizole prior to venipuncture, may have falsely depressedresults. Performed By: #### L 500.81189, L500.73594 ####[facility] [id number] [place], [place] [address]Fk# [phone] Glucose [Mass/Vol] 160 mg/dL High 70-100 [facility] Comment on above: Order Comment: Campu s: M Result Comment: Delt a check [id number]- Normal Fasting; 100-125 Impaired Fasting; greaterthan 126 on more than one result- Diabetes. ADA guidelines.Results may be falsely elevated after the administration ofSulfapyridine.Results may be falsely depressed after the administration ofSulfasalazine. Performed By: #### L 500.88330, L500.16948 ####[facility] [id number] [place], [place] [address]Oz# [phone] Potassium [Moles/Vol] 3.8 mmol/L Normal 3.5-5.1 [facility] Comment on above: Order Comment: Campu s: M Performed By: #### L 500.89215, L500.64974 ####[facility] [id number] [place] [address] 54137Zq# [phone] Sodium [Moles/Vol] 141 mmol/L Normal 136-145 [facility] Comment on above: Order Comment: Campu s: M Performed By: #### L 500.75192, L500.30658 ####[facility] [id number] [place] [address] 75093Iw# [phone] Urea nitrogen [Mass/Vol] 9 mg/dL Normal 7-26 [facility] Comment on above: Order Comment: Campu s: M Performed By: #### L 500.11433, L500.29217 ####[facility] [id number] [place] [address] 12258Bq# [phone] Urea nitrogen/Creatinine [Mass ratio] 14 mg/mg Low 15-24 [facility] Comment on above: Order Comment: Campu s: M Performed By: #### L 500.01041, L500.69521 ####[facility] [id number] [place] [address] 67452Lr# [phone] DISCH.SUMon 12-30-2021 DISCH.SUM Normal [facility] GFR ESTon 12-30-2021 IF AMER Greater than 60 Normal [facility] Comment on above: Order Comment: Campu s: M Performed By: #### L 500.24703, L500.64039 ####[facility] [id number] [place], [place] [address]Cv# [phone] IF non-AFR AMER Greater than 60 Normal [facility] Comment on above: Order Comment: Campu s: M Performed By: #### L 500.64517, L500.14918 ####[facility] [id number] [place], [place] [address]Ad# [phone] GLUCOSE METERon 12-30-2021 Glucose [Mass/Vol] 141 mg/dL High 70-115 [facility] [place] Glucose [Mass/Vol] 184 mg/dL High 70-115 [facility] Glucose [Mass/Vol] 269 mg/dL High 70-115 [facility] HGB A1C GLYCOHBon 12-30-2021 HbA1c (Bld) [Mass fraction] 6.2 % High 4.3-6.0 [facility] Comment on above: Order Comment: Campu s: M Performed By: #### L 550.52149 ####[facility] [id number] [place], [place] [address]Ft# [phone] BMPon 12-29-2021 Anion gap [Moles/Vol] 7 mmol/L Normal 5-16 [facility] Comment on above: Order Comment: Campu s: M Performed By: #### L 500.69126, L500.21251 ####[facility] [id number] [place], [place] [address]Dr# [phone] Calcium [Mass/Vol] 7.1 mg/dL Low 8.5-10.5 [facility] Comment on above: Order Comment: Campu s: M Result Comment: NOTE NEW NORMAL RANGE DUE TO REAGENT CHANGE Performed By: #### L 500.32804, L500.25505 ####[facility] [id number] [place], [place] [address]Rg# [phone] Chloride [Moles/Vol] 114 mmol/L High 98-107 [facility] Comment on above: Order Comment: Campu s: M Performed By: #### L 500.15500, L500.16172 ####[facility] [id number] [place], [place] [address]Bz# [phone] CO2 [Moles/Vol] 22.0 mmol/L Normal 21-32 [facility] [place] Comment on above: Order Comment: Benjiu s: M Performed By: #### L 500.62190, L500.85994 ####[facility] [id number] [place], [place] [address]Qv# [phone] Creatinine [Mass/Vol] 0.52 mg/dL Normal 0.510-0.950 [facility] [place] Comment on above: Order Comment: Benjiu s: M Result Comment: Cleopatra ents receiving either N-Acetylcysteine (NAC) orMetamizole prior to venipuncture, may have falsely depressedresults. Performed By: #### L 500.31797, L5.06391 ####[facility] TRSPYVFRKH3672 [place], [place] [address]Fx# [phone] Glucose [Mass/Vol] 94 mg/dL Normal 70-100 [facility] Comment on above: Order Comment: Benjiu s: M Result Comment: 70-1 00- Normal Fasting; 100-125 Impaired Fasting; greaterthan 126 on more than one result- Diabetes. ADA guidelines.Results may be falsely elevated after the administration ofSulfapyridine.Results may be falsely depressed after the administration ofSulfasalazine. Performed By: #### L 500.46395, L500.17509 ####[facility] [id number] [place], [place] [address]Er# [phone] Potassium [Moles/Vol] 3.2 mmol/L Low 3.5-5.1 [facility] [place] Comment on above: Order Comment: Benjiu s: M Result Comment: Slig ht Hemolysis, Result may be affected. Performed By: #### L 500.50049, L500.92078 ####[facility] [id number] [place], [place] [address]Ig# [phone] Sodium [Moles/Vol] 143 mmol/L Normal 136-145 [facility] [place] Comment on above: Order Comment: Campu s: M Result Comment: Delt a check reviewed Performed By: #### L 500.27741, L500.40275 ####[facility] [id number] [place] [address] 48706Ix# [phone] Urea nitrogen [Mass/Vol] 6 mg/dL Low 7-26 [facility] Comment on above: Order Comment: Campu s: M Performed By: #### L 500.38787, L500.28600 ####[facility] [id number] [place] [address] 51452Yu# [phone] Urea nitrogen/Creatinine [Mass ratio] 11 mg/mg Low 15-24 [facility] Comment on above: Order Comment: Campu s: M Performed By: #### L 500.01358, L500.97601 ####[address] [address]Do# [phone] CBC W/DIFFon 12-29-2021 BASO ABS 0.00 K/CU MM Normal 0-0.2 [facility] Comment on above: Order Comment: Campu s: M Performed By: #### L 200.41929 ####[facility] [id number] [place] [address] 30329Eq# [phone] Basophils/100 WBC (Bld) 0.3 % Normal 0-2 [facility] [place] Comment on above: Order Comment: Campu s: M Performed By: #### L 200.54429 ####[facility] [id number] [place] [address] 63646No# [phone] EOS ABS 0.00 K/CU MM Normal 0-0.5 [facility] [place] Comment on above: Order Comment: Campu s: M Performed By: #### L 200.12514 ####[facility] [id number] [place] [address] 864[address]Rw# [phone] Eosinophils/100 WBC (Bld) 0.2 % Normal 0-5 [facility] [place] Comment on above: Order Comment: Campu s: M Performed By: #### L 200.99956 ####[facility] [id number] [place], [place] [address]Ls# [phone] Erythrocyte distribution width (RBC) [Ratio] 13.5 % Normal 11-14.5 [facility] [place] Comment on above: Order Comment: Campu s: M Performed By: #### L 200.08181 ####[facility] [id number] [place], [place] [address]Ph# [phone] Hematocrit (Bld) [Volume fraction] 34.3 % Low 35.0-47.0 [facility] [place] Comment on above: Order Comment: Campu s: M Performed By: #### L 200.41571 ####[address] [address]Kv# [phone] Hemoglobin (Bld) [Mass/Vol] 11.5 g/dL Normal 11.5-15.5 [facility] Comment on above: Order Comment: Campu s: M Performed By: #### L 200.91611 ####[place] [address]Ph# [phone] IMMATR GRAN ABS 0.20 K/CU MM Normal Less than 2 [facility] [place] Comment on above: Order Comment: Campu s: M Performed By: #### L 200.08910 ####[facility] [id number] [place], [place] [address]Ph# [phone] IMMATURE GRAN % 1.8 % Normal Less than 2 [facility] [place] Comment on above: Order Comment: Campu s: M Performed By: #### L 200.82631 ####[facility] [id number] [place] [address] 70222Ld# [phone] LYMPH ABS 3.60 K/CU MM Normal 0.9-4.4 [facility] [place] Comment on above: Order Comment: Campu s: M Performed By: #### L 200.32277 ####[facility] [id number] [place], [place] [address]Ph# [phone] Lymphocytes/100 WBC (Bld) 29.4 % Normal 20-40 [facility] [place] Comment on above: Order Comment: Campu s: M Performed By: #### L 200.65278 ####[facility] [id number] [place], [place] [address]Wx# [phone] MCHC (RBC) [Mass/Vol] 33.5 g/dL Normal 32.0-36.0 [facility] [place] Comment on above: Order Comment: Campu s: M Performed By: #### L 200.44353 ####[facility] [id number] [place] [address] 589[address]Jf# [phone] MCV (RBC) [Entitic vol] 86.2 fL Normal 80.0-99.0 [facility] Comment on above: Order Comment: Campu s: M Performed By: #### L 200.33647 ####[address] [address]Xz# [phone] MONO ABS 0.80 K/CU MM Normal 0.1-1.1 [facility] Comment on above: Order Comment: Campu s: M Performed By: #### L 200.52361 ####[facility] [id number] [place] [address] 959[address]Yo# [phone] Monocytes/100 WBC (Bld) 6.7 % Normal 2-10 [facility] Comment on above: Order Comment: Campu s: M Performed By: #### L 200.26037 ####[facility] [id number] [place] [address] 82114Xj# [phone] NEUTROPHIL ABS 7.60 K/CU MM Normal 2.0-8.3 [facility] Comment on above: Order Comment: Campu s: M Performed By: #### L 200.86331 ####[facility] [id number] [place] [address] 96756Wu# [phone] Neutrophils/100 WBC (Bld) 61.6 % Normal 45-75 [facility] Comment on above: Order Comment: Campu s: M Performed By: #### L 200.76584 ####[facility] [id number] [place], [place] [address]Rp# [phone] Nucleated RBC/100 WBC (Bld) [Ratio] 0.0 % Normal Less than 1 [facility] [place] Comment on above: Order Comment: Campu s: M Performed By: #### L 200.76256 ####[facility] [id number] [place], [place] [address]Gh# [phone] Platelet mean volume (Bld) [Entitic vol] 11.7 fL Normal 9.4-12.4 [facility] Comment on above: Order Comment: Campu s: M Performed By: #### L 200.64768 ####[facility] [id number] [place], [place] [address]Jj# [phone] PLT 167 K/CU MM Normal 150-450 [facility] Comment on above: Order Comment: Campu s: M Performed By: #### L 200.17267 ####[facility] [id number] [place], [place] [address]Mq# [phone] RBC 3.98 M/CU MM Normal 3.90-5.30 [facility] Comment on above: Order Comment: Campu s: M Performed By: #### L 200.78292 ####[facility] [id number] [place], [place] [address]Ml# [phone] WBC 12.4 K/CUMM High 4.5-11.0 [facility] Comment on above: Order Comment: Campu s: M Performed By: #### L 200.84875 ####[facility] [id number] [place] [address] 64708Rx# [phone] GFR ESTon 12-29-2021 IF AMER Greater than 60 Normal [facility] Comment on above: Order Comment: Campu s: M Performed By: #### L 500.28496, L500.49315 ####[facility] DIECEXUILD3972 [place] [address]Ph# [phone] IF non-AFR AMER Greater than 60 Normal [facility] Comment on above: Order Comment: Zach s: M Performed By: #### L 500.18448, L500.90619 ####[facility] [id number] [place], [place] [address]Ty# [phone] GLUCOSE METERon 12-29-2021 Glucose [Mass/Vol] 266 mg/dL High 70-115 [facility] [place] Glucose [Mass/Vol] 109 mg/dL Normal 70-115 [facility] [place] Glucose [Mass/Vol] 67 mg/dL Low 70-115 [facility] [place] Glucose [Mass/Vol] 49 mg/dL Critically low 70-115 [facility] [place] Glucose [Mass/Vol] 63 mg/dL Low 70-115 [facility] [place] Glucose [Mass/Vol] 98 mg/dL Normal 70-115 [facility] PR[facility] IMSon 12-29-2021 PROG IMS Normal [facility] [place] Progress Note-Hospitalist Normal [facility] ADM.INTERVon 12-28-2021 ADM.INTERV Normal [facility] Admission Interval Note Normal [facility] BETA-HYDRO BUTon 12-28-2021 BETA-HYDRO BUT 4.79 MMOL/L High 0.02-0.27 [facility] Comment on above: Order Comment: Zach s: M Result Comment: Bloo d ketone levels will vary depending on several factors(for example, food intake, alcohol intake and conditionssuch as ketoacidosis). Patients should be fasting 12 hoursprior to collection.PATIENT SAMPLES WITH HIGH LEVELS OF M-PROTEIN (I.E.GAMMOPATHY) MAY AFFECT THE ACCURACY OF THIS ASSAY. Performed By: #### L 500.74266, L500.61364, L500.11003 ####[facility] [id number] [place], [place] [address]Yt# [phone] BMPon 12-28-2021 Anion gap [Moles/Vol] 13 mmol/L Normal 5-16 [facility] Comment on above: Order Comment: Zach s: M Performed By: #### L 500.93674, L500.89850, L500.35378 ####[facility] [id number] [place], [place] [address]Oq# [phone] Calcium [Mass/Vol] 8.9 mg/dL Normal 8.5-10.5 [facility] Comment on above: Order Comment: Campu s: M Result Comment: NOTE NEW NORMAL RANGE DUE TO REAGENT CHANGE Performed By: #### L 500.30988, L500.37729, L500.82876 ####[facility] [id number] [place], [place] [address]Xs# [phone] Chloride [Moles/Vol] 105 mmol/L Normal 98-107 [facility] Comment on above: Order Comment: Campu s: M Performed By: #### L 500.10618, L500.45932, L500.91564 ####[facility] [id number] [place], [place] [address]Yj# [phone] CO2 [Moles/Vol] 18.0 mmol/L Low 21-32 [facility] [place] Comment on above: Order Comment: Campu s: M Performed By: #### L 500.16971, L500.59554, L500.18903 ####[facility] OILLEFAAIH4090 [place], [place] [address]Dc# [phone] Creatinine [Mass/Vol] 0.61 mg/dL Normal 0.510-0.950 [facility] [place] Comment on above: Order Comment: Campu s: M Result Comment: Cleopatra ents receiving either N-Acetylcysteine (NAC) orMetamizole prior to venipuncture, may have falsely depressedresults. Performed By: #### L 500.36260, L500.89628, L500.82704 ####[facility] FUBDXMWIPN8672 [place], [place] [address]Jl# [phone] Glucose [Mass/Vol] 80 mg/dL Normal 70-100 [facility] [place] Comment on above: Order Comment: Campu s: M Result Comment: 70-1 00- Normal Fasting; 100-125 Impaired Fasting; greaterthan 126 on more than one result- Diabetes. ADA guidelines.Results may be falsely elevated after the administration ofSulfapyridine.Results may be falsely depressed after the administration ofSulfasalazine. Performed By: #### L 500.84305, L500.40435, L500.99554 ####[facility] [id number] [place], [place] [address]Fs# [phone] Potassium [Moles/Vol] 2.9 mmol/L Critically low 3.5-5.1 [facility] Comment on above: Order Comment: Campu s: M Result Comment: Slig ht Hemolysis, Result may be affected.Critical Result(s)Called at: 19:38:48 on 12/28/2021 by lls. Called to vinh back by: DR MORLEY Performed By: #### L 500.56894, L500.37987, L500.55310 ####[facility] [id number] [place], [place] [address]Dn# [phone] Sodium [Moles/Vol] 136 mmol/L Normal 136-145 [facility] Comment on above: Order Comment: Campu s: M Performed By: #### L 500.03990, L500.64287, L500.19683 ####[facility] [id number] [place], [place] [address]Tc# [phone] Urea nitrogen [Mass/Vol] 11 mg/dL Normal 7-26 [facility] Comment on above: Order Comment: Campu s: M Performed By: #### L 500.90502, L500.54514, L500.45973 ####[facility] ZSIPJTJZBP9381 [place], [place] [address]Mp# [phone] Urea nitrogen/Creatinine [Mass ratio] 18 mg/mg Normal 15-24 [facility] Comment on above: Order Comment: Campu s: M Performed By: #### L 500.84203, L500.42309, L500.14394 ####[facility] CEAQYUMXCV2226 [place], [place] [address]Qq# [phone] Stacie 12-28-2021 EMERGENCY PHYSICIAN REPORT This is a preliminary report only, as the practitioner review and authentication has not occurred. Normal [facility] [place] ER Normal [facility] [place] GFR ESTon 12-28-2021 IF AMER Greater than 60 [facility] Comment on above: Order Comment: Campu s: M Performed By: #### L 500.92623, L500.57578, L500.51512 ####[facility] [id number] [place], [place] [address]Dk# [phone] IF non-AFR AMER Greater than 60 [facility] Comment on above: Order Comment: Campu s: M Performed By: #### L 500.02136, L500.48983, L500.50096 ####[facility] AHZYBGBHWO5427 [place], [place] [address]Xq# [phone] VBG PANELon 12-28-2021 BASE EXCESS -4.6 MMOL/L Low 0-2 [facility] Comment on above: Order Comment: Campu s: M Performed By: #### L 100.11833 ####[facility] [id number] [place], [place] [address]Fy# [phone] Body temperature 98.6 [degF] [facility] Comment on above: Order Comment: Campu s: M Performed By: #### L 100.63498 ####[facility] SMURCANPTV8016 [place], [place] [address]Vu# [phone] EQUIPMENT UNKNOWN Normal [facility] Comment on above: Order Comment: Campu s: M Performed By: #### L 100.50453 ####[facility] TUZVPQZJWX2218 [place], [place] [address]Ee# [phone] HCO3 (Bld) [Moles/Vol] 17.6 mmol/L Low 22-26 [facility] Comment on above: Order Comment: Campu s: M Performed By: #### L 100.33244 ####[facility] MAFCKWTZMI2498 [place], [place] [address]Gf# [phone] Hemoglobin (Bld) [Mass/Vol] 13.9 g/dL Low 16.0-22.0 [facility] [place] Comment on above: Order Comment: Benjiu s: M Performed By: #### L 100.42047 ####[facility] [id number] [place], [place] [address]Mj# [phone] SAMPLE SITE UNKNOWN Normal [facility] Comment on above: Order Comment: Benjiu s: M Performed By: #### L 100.42686 ####[facility] [id number] [place] [address]Sg# [phone] SAMPLE TYPE VENOUS Normal [facility] Comment on above: Order Comment: Benjiu s: M Performed By: #### L 100.11911 ####[facility] [id number] [place] [address] 18[address]To# [phone] VBG CARBOXYHGB 1.5 % Normal 0-10 [facility] Comment on above: Order Comment: Benjiu s: M Performed By: #### L 100.91917 ####[facility] [id number] [place], [place] [address]Ws# [phone] VBG METHGB 0.3 % Low 0.4-1.5 [facility] Comment on above: Order Comment: Benjiu s: M Performed By: #### L 100.14533 ####[facility] [id number] [place] [address]Hv# [phone] VBG O2 CAPACITY 19.0 VOL% Normal [facility] [place] Comment on above: Order Comment: Benjiu s: M Performed By: #### L 100.09974 ####[facility] [id number] [place], [place] [address]Ho# [phone] VBG O2 HG SATUR 88.4 % High 40-70 [facility] [place] Comment on above: Order Comment: Benjiu s: M Performed By: #### L 100.44212 ####[facility] [id number] [place] [address]Wn# [phone] VBG PCO2 25.6 MMHG Critically low 40-50 [facility] Comment on above: Order Comment: Campu s: M Result Comment: VALU E IS OUTSIDE OF THE VERIFIED RANGES OF THIS ANALYZER.ADAM CHOE Elver. PCO2 25.6 MM[facility] Performed By: #### L 100.15146 ####[facility] [id number] [place], [place] [address]Ow# [phone] VBG PH 7.46 MM[facility] High 7.31-7.41 [facility] Comment on above: Order Comment: Campu s: M Performed By: #### L 100.54710 ####[facility] [id number] [place], [place] [address]Pk# [phone] VBG PO2 54.3 MM[facility] High 35-45 [facility] Comment on above: Order Comment: Campu s: M Performed By: #### L 100.97614 ####[facility] [id number] [place], [place] [address]Db# [phone] BETA-HYDRO BUTon 12-27-2021 BETA-HYDRO BUT 3.29 MMOL/L High 0.02-0.27 [facility] Comment on above: Order Comment: Campu s: M Result Comment: Bloo d ketone levels will vary depending on several factors(for example, food intake, alcohol intake and conditionssuch as ketoacidosis). Patients should be fasting 12 hoursprior to collection.PATIENT SAMPLES WITH HIGH LEVELS OF M-PROTEIN (I.E.GAMMOPATHY) MAY AFFECT THE ACCURACY OF THIS ASSAY. Performed By: #### L 500.25150 ####[facility] [id number] [place], [place] [address]Af# [phone] BMPon 12-27-2021 Anion gap [Moles/Vol] 15 mmol/L Normal 5-16 [facility] Comment on above: Order Comment: Campu s: M Performed By: #### L 500.56684, L500.73640, L500.79211 ####[facility] [id number] [place], [place] [address]Kn# [phone] Calcium [Mass/Vol] 9.2 mg/dL Normal 8.5-10.5 [facility] Comment on above: Order Comment: Campu s: M Result Comment: NOTE NEW NORMAL RANGE DUE TO REAGENT CHANGE Performed By: #### L 500.52730, L500.63349, L500.43776 ####[facility] [id number] [place], [place] [address]Cw# [phone] Chloride [Moles/Vol] 107 mmol/L Normal 98-107 [facility] Comment on above: Order Comment: Campu s: M Performed By: #### L 500.51561, L500.72073, L500.92578 ####[facility] [id number] [place], [place] [address]Wt# [phone] CO2 [Moles/Vol] 18.0 mmol/L Low 21-32 [facility] Comment on above: Order Comment: Campu s: M Performed By: #### L 500.35726, L500.90692, L500.79144 ####[facility] [id number] [place], [place] [address]Rp# [phone] Creatinine [Mass/Vol] 0.67 mg/dL Normal 0.510-0.950 [facility] [place] Comment on above: Order Comment: Campu s: M Result Comment: Cleopatra ents receiving either N-Acetylcysteine (NAC) orMetamizole prior to venipuncture, may have falsely depressedresults. Performed By: #### L 500.03106, L500.02065, L500.62368 ####[facility] [id number] [place], [place] [address]Tj# [phone] Glucose [Mass/Vol] 118 mg/dL High 70-100 [facility] Comment on above: Order Comment: Campu s: M Result Comment: 70-1 00- Normal Fasting; 100-125 Impaired Fasting; greaterthan 126 on more than one result- Diabetes. ADA guidelines.Results may be falsely elevated after the administration ofSulfapyridine.Results may be falsely depressed after the administration ofSulfasalazine. Performed By: #### L 500.83525, L500.56080, L500.78649 ####[facility] [id number] [place], [place] [address]Cv# [phone] Potassium [Moles/Vol] 3.3 mmol/L Low 3.5-5.1 [facility] [place] Comment on above: Order Comment: Campu s: M Performed By: #### L 500.91323, L500.97059, L500.69410 ####[facility] [id number] [place], [place] [address]Bm# [phone] Sodium [Moles/Vol] 140 mmol/L Normal 136-145 [facility] Comment on above: Order Comment: Campu s: M Performed By: #### L 500.46238, L500.29486, L500.33692 ####[facility] [id number] [place], [place] [address]Kw# [phone] Urea nitrogen [Mass/Vol] 14 mg/dL Normal 7-26 [facility] Comment on above: Order Comment: Campu s: M Performed By: #### L 500.38727, L500.51451, L500.91044 ####[facility] [id number] [place], [place] [address]Nn# [phone] Urea nitrogen/Creatinine [Mass ratio] 21 mg/mg Normal 15-24 [facility] Comment on above: Order Comment: Campu s: M Performed By: #### L 500.21366, L500.25372, L500.03723 ####[facility] [id number] [place], [place] [address]Hs# [phone] CBC W/DIFFon 12-27-2021 BASO ABS 0.00 K/CU MM Normal 0-0.2 [facility] Comment on above: Order Comment: Campu s: M Performed By: #### L 200.48659 ####[facility] [id number] [place], [place] [address]Bl# [phone] Basophils/100 WBC (Bld) 0.3 % Normal 0-2 [facility] [place] Comment on above: Order Comment: Campu s: M Performed By: #### L 200.37243 ####[facility] [id number] [place], [place] [address]Sq# [phone] EOS ABS 0.00 K/CU MM Normal 0-0.5 [facility] [place] Comment on above: Order Comment: Campu s: M Performed By: #### L 200.83576 ####[facility] [id number] [place], [place] [address]Ph# [phone] Eosinophils/100 WBC (Bld) 0.0 % Normal 0-5 [facility] Comment on above: Order Comment: Campu s: M Performed By: #### L 200.61355 ####[place] [address]Ph# [phone] Erythrocyte distribution width (RBC) [Ratio] 13.8 % Normal 11-14.5 [facility] [place] Comment on above: Order Comment: Campu s: M Performed By: #### L 200.16685 ####[facility] [id number] [place], [place] [address]Ph# [phone] Hematocrit (Bld) [Volume fraction] 36.4 % Normal 35.0-47.0 [facility] Comment on above: Order Comment: Campu s: M Performed By: #### L 200.06145 ####[facility] [id number] [place], [place] [address]Ph# [phone] Hemoglobin (Bld) [Mass/Vol] 12.1 g/dL Normal 11.5-15.5 [facility] [place] Comment on above: Order Comment: Campu s: M Performed By: #### L 200.32742 ####[facility] [id number] [place], [place] [address]Di# [phone] IMMATR GRAN ABS 0.30 K/CU MM Normal Less than 2 [facility] [place] Comment on above: Order Comment: Campu s: M Performed By: #### L 200.53945 ####[place] [address] [place], [place] [address]Yj# [phone] IMMATURE GRAN % 1.8 % Normal Less than 2 [facility] Comment on above: Order Comment: Campu s: M Performed By: #### L 200.38621 ####[facility] [id number] [place] [address]Cl# [phone] LYMPH ABS 1.30 K/CU MM Normal 0.9-4.4 [facility] Comment on above: Order Comment: Campu s: M Performed By: #### L 200.15018 ####[place] [address]Ph# [phone] Lymphocytes/100 WBC (Bld) 9.4 % Low 20-40 [facility] Comment on above: Order Comment: Campu s: M Performed By: #### L 200.69036 ####[place] [address]Ph# [phone] MCHC (RBC) [Mass/Vol] 33.2 g/dL Normal 32.0-36.0 [facility] Comment on above: Order Comment: Campu s: M Performed By: #### L 200.07284 ####[facility] [id number] [place] [address]Pg# [phone] MCV (RBC) [Entitic vol] 85.4 fL Normal 80.0-99.0 [facility] Comment on above: Order Comment: Campu s: M Performed By: #### L 200.67062 ####[facility] [id number] [place] [address]Tq# [phone] MONO ABS 0.60 K/CU MM Normal 0.1-1.1 [facility] Comment on above: Order Comment: Campu s: M Performed By: #### L 200.05445 ####[facility] [id number] [place] [address]Bh# [phone] Monocytes/100 WBC (Bld) 4.1 % Normal 2-10 [facility] Comment on above: Order Comment: Campu s: M Performed By: #### L 200.96943 ####[facility] [id number] [place], [place] [address]Yd# [phone] NEUTROPHIL ABS 11.70 K/CU MM High 2.0-8.3 [facility] Comment on above: Order Comment: Campu s: M Performed By: #### L 200.82847 ####[facility] [id number] [place] [address]Aj# [phone] Neutrophils/100 WBC (Bld) 84.4 % High 45-75 [facility] Comment on above: Order Comment: Campu s: M Performed By: #### L 200.61916 ####[facility] [id number] [place], [place] [address]Rn# [phone] Nucleated RBC/100 WBC (Bld) [Ratio] 0.0 % Normal Less than 1 [facility] Comment on above: Order Comment: Campu s: M Performed By: #### L 200.61115 ####[facility] [id number] [place], [place] [address]Lh# [phone] Platelet mean volume (Bld) [Entitic vol] 12.1 fL Normal 9.4-12.4 [facility] Comment on above: Order Comment: Campu s: M Performed By: #### L 200.49364 ####[facility] [id number] [place] [address]Sf# [phone] PLT 184 K/CU MM Normal 150-450 [facility] Comment on above: Order Comment: Campu s: M Performed By: #### L 200.50840 ####[facility] [id number] [place], [place] [address]Yx# [phone] RBC 4.26 M/CU MM Normal 3.90-5.30 [facility] Comment on above: Order Comment: Campu s: M Performed By: #### L 200.42575 ####[facility] [id number] [place], [place] [address]Be# [phone] WBC 13.9 K/CUMM High 4.5-11.0 [facility] Comment on above: Order Comment: Campu s: M Performed By: #### L 200.69970 ####[facility] COOLGLAOUY9956 [place], [place] [address]At# [phone] Stacie 12-27-2021 EMERGENCY PHYSICIAN REPORT This is a preliminary report only, as the practitioner review and authentication has not occurred. Normal [facility] [place] ER Normal [facility] GFR ESTon 12-27-2021 IF AMER Greater than 60 Normal [facility] Comment on above: Order Comment: Campu s: M Performed By: #### L 500.16711, L500.11210, L500.09719 ####[facility] [id number] [place], [place] [address]Fc# [phone] IF non-AFR AMER Greater than 60 Normal [facility] Comment on above: Order Comment: Campu s: M Performed By: #### L 500.49470, L500.06465, L500.63722 ####[facility] [id number] [place], [place] [address]Zz# [phone] HCGon 12-27-2021 HCG SER RESULT Negative Normal NEGATIVE [facility] Comment on above: Order Comment: Campu s: M Performed By: #### L 500.44497, L500.04343, L500.10411 ####[facility] PEYLIJGQTX4404 [place], [place] [address]Ef# [phone] LACTATE BLOODon 12-27-2021 LACTATE BLOOD 2.43 MMOL/L High 0.40-2.00 [facility] Comment on above: Order Comment: Campu s: M Performed By: #### L 550.40623 ####[facility] [id number] [place], [place] [address]Cy# [phone] LIPASEon 12-27-2021 Lipase [Catalytic activity/Vol] 25 U/L Normal 12-60 [facility] Comment on above: Order Comment: Campu s: M Result Comment: NOTE NEW NORMAL RANGE DUE TO REAGENT CHANGE Performed By: #### L 500.68574, L500.21658 ####[facility] [id number] [place], [place] [address]Mm# [phone] LIVERon 12-27-2021 Albumin [Mass/Vol] 4.2 g/dL Normal 3.2-5.0 [facility] Comment on above: Order Comment: Campu s: M Performed By: #### L 500.30755, L500.11219 ####[facility] [id number] [place], [place] [address]Bp# [phone] Albumin/Globulin [Mass ratio] 1.7 {ratio} Normal 0.8-2.0 [facility] Comment on above: Order Comment: Campu s: M Performed By: #### L 500.45965, L500.72330 ####[facility] [id number] [place], [place] [address]Qq# [phone] ALK PHOS 87 U/L Normal 45-117 [facility] Comment on above: Order Comment: Campu s: M Performed By: #### L 500.60712, L500.21794 ####[facility] [id number] [place], [place] [address]Jx# [phone] ALT [Catalytic activity/Vol] 13 U/L Normal 13-61 [facility] Comment on above: Order Comment: Campu s: M Result Comment: RESU LTS MAY BE FALSELY DEPRESSED AFTER THE ADMINISTRATION OFSULFASALAZINE AND/OR SULFAPYRIDINE. Performed By: #### L 500.65863, L500.07285 ####[facility] [id number] [place], [place] [address]Mw# [phone] AST [Catalytic activity/Vol] 23 U/L Normal 8-34 [facility] Comment on above: Order Comment: Campu s: M Result Comment: RESU LTS MAY BE FALSELY DEPRESSED AFTER THE ADMINISTRATION OFSULFASALAZINE AND/OR SULFAPYRIDINE. Performed By: #### L 500.24857, L500.75093 ####[facility] [id number] [place], [place] [address]Xm# [phone] BILI DIRECT 0.3 MG/DL Normal 0.00-0.36 [facility] Comment on above: Order Comment: Campu s: M Result Comment: NOTE NEW NORMAL RANGE DUE TO REAGENT CHANGE Performed By: #### L 500.22964, L500.77420 ####[address] [address]Ie# [phone] BILI TOTAL 0.90 MG/DL Normal 0.2-1.0 [facility] Comment on above: Order Comment: Campu s: M Performed By: #### L 500.27865, L500.37518 ####[address] [address]Gi# [phone] Globulin (S) [Mass/Vol] 2.5 g/dL Normal 2.2-4.2 [facility] Comment on above: Order Comment: Campu s: M Performed By: #### L 500.34959, L500.32677 ####[address] [address]Zy# [phone] Protein [Mass/Vol] 6.7 g/dL Normal 6.0-8.5 [facility] Comment on above: Order Comment: Campu s: M Performed By: #### L 500.22814, L500.79837 ####[address] [address]Jh# [phone] [id number] 12-27-2021 SARS-CoV-2 (COVID-19) RNA DANIEL+probe Ql (Unsp spec) Negative Invalid Interpretation Code Negative [facility] Comment on above: [...] performed by PCR. Performed By: #### L 770.40877 ####[facility] [id number] [place], [place] [address]Xh# [phone] UA COMPLETEon 12-27-2021 Color (U) Yellow Normal [facility] Comment on above: Order Comment: Campu s: M Performed By: #### L 600.11752 ####[facility] [id number] [place] [address]Rv# [phone] Glucose (U) [Mass/Vol] Negative Normal NORMAL Me [facility] Comment on above: Order Comment: Campu s: M Performed By: #### L 600.47237 ####[facility] [id number] [place] [address]Ql# [phone] UA APPEARANCE Clear Normal CLEAR [facility] Comment on above: Order Comment: Campu s: M Performed By: #### L 600.60650 ####[facility] [id number] [place] [address]Et# [phone] UA BILIRUBIN Negative Normal NEGATIVE [facility] Comment on above: Order Comment: Campu s: M Performed By: #### L 600.46281 ####[facility] [id number] [place] [address]Ig# [phone] UA BLOOD Negative Normal NEGATIVE [facility] Comment on above: Order Comment: Campu s: M Performed By: #### L 600.44505 ####[facility] [id number] [place], [place] [address]Yz# [phone] UA KETONE 80 Normal NEGATIVE [facility] Comment on above: Order Comment: Campu s: M Performed By: #### L 600.29848 ####[facility] [id number] [place] [address]Bg# [phone] UA LK ESTERASE Negative Normal NEGATIVE [facility] Comment on above: Order Comment: Campu s: M Performed By: #### L 600.14115 ####[facility] [id number] [place], [place] [address]Nj# [phone] UA NITRITE Negative Normal NEGATIVE [facility] Comment on above: Order Comment: Campu s: M Performed By: #### L 600.03670 ####[facility] [id number] [place], [place] [address]Qk# [phone] UA PH 6.0 Normal 5-6 [facility] Comment on above: Order Comment: Campu s: M Performed By: #### L 600.13644 ####[facility] [id number] [place], [place] [address]Jb# [phone] UA PROTEIN Negative Normal NEGATIVE [facility] Comment on above: Order Comment: Campu s: M Performed By: #### L 600.66617 ####[facility] [id number] [place] [address]Hv# [phone] UA SPEC GRAV 1.018 Normal 1.005-1.030 [facility] Comment on above: Order Comment: Campu s: M Performed By: #### L 600.66780 ####[facility] [id number] [place] [address]Rj# [phone] UA UROBILINOGEN 2.0 Normal NORMAL [facility] Comment on above: Order Comment: Campu s: M Performed By: #### L 600.60734 ####[facility] [id number] [place] [address]Vv# [phone] VBG PHon 12-27-2021 VBG PH 7.57 MMHG High 7.31-7.41 [facility] Comment on above: Order Comment: Campu s: M Performed By: #### L 100.03767 ####[facility] [id number] [place], [place] [address]Oy# [phone] Stacie 12-26-2021 EMERGENCY PHYSICIAN REPORT This is a preliminary report only, as the practitioner review and authentication has not occurred. Normal [facility] GLUCOSE METERon 12-26-2021 Glucose [Mass/Vol] 246 mg/dL High 70-115 [facility] Glucose [Mass/Vol] 311 mg/dL High 70-115 [facility] [place] PROG.NOTEon 12-26-2021 PROG.NOTE Normal [facility] Progress Note-Physician Normal [facility] ABDOMEN OR KUBon 12-25-2021 ABDOMEN OR KUB Normal [facility] [place] BETA-HYDRO BUTon 12-25-2021 BETA-HYDRO BUT 2.49 MMOL/L High 0.02-0.27 [facility] Comment on above: Order Comment: Campu s: M Result Comment: Bloo d ketone levels will vary depending on several factors(for example, food intake, alcohol intake and conditionssuch as ketoacidosis). Patients should be fasting 12 hoursprior to collection.PATIENT SAMPLES WITH HIGH LEVELS OF M-PROTEIN (I.E.GAMMOPATHY) MAY AFFECT THE ACCURACY OF THIS ASSAY. Performed By: #### L 500.63259 ####[facility] [id number] [place], [place] [address]Pf# [phone] BMPon 12-25-2021 Anion gap [Moles/Vol] 13 mmol/L Normal 5-16 [facility] Comment on above: Order Comment: Campu s: M Performed By: #### L 500.49560, L500.62523, L500.26445, L500.81070, L500.15671 ####[facility] [id number] [place], [place] [address]Az# [phone] Calcium [Mass/Vol] 10.0 mg/dL Normal 8.5-10.5 [facility] Comment on above: Order Comment: Campu s: M Result Comment: NOTE NEW NORMAL RANGE DUE TO REAGENT CHANGE Performed By: #### L 500.53556, L500.91362, L500.68957, L500.57685, L500.71820 ####[facility] HJUEZXVLQK7293 [place], [place] [address]Zw# [phone] Chloride [Moles/Vol] 107 mmol/L Normal 98-107 [facility] Comment on above: Order Comment: eBnjiu s: M Performed By: #### L 500.84873, L500.32154, L500.70039, L500.24876, L500.53585 ####[facility] [id number] [place], [place] [address]Ym# [phone] CO2 [Moles/Vol] 17.0 mmol/L Low 21-32 [facility] Comment on above: Order Comment: Benjiu s: M Performed By: #### L 500.72266, L500.23757, L500.71979, L500.35632, L500.87310 ####[facility] [id number] [place], [place] [address]In# [phone] Creatinine [Mass/Vol] 0.66 mg/dL Normal 0.510-0.950 [facility] Comment on above: Order Comment: Benjiu s: M Result Comment: Cleopatra ents receiving either N-Acetylcysteine (NAC) orMetamizole prior to venipuncture, may have falsely depressedresults. Performed By: #### L 500.58086, L500.97394, L500.22266, L500.78630, L500.51242 ####[facility] [id number] [place], [place] [address]Fs# [phone] Glucose [Mass/Vol] 359 mg/dL High 70-100 [facility] Comment on above: Order Comment: Benjiu s: M Result Comment: 70-1 00- Normal Fasting; 100-125 Impaired Fasting; greaterthan 126 on more than one result- Diabetes. ADA guidelines.Results may be falsely elevated after the administration ofSulfapyridine.Results may be falsely depressed after the administration ofSulfasalazine. Performed By: #### L 500.56060, L500.75868, L500.05545, L500.50230, L500.78697 ####[facility] [id number] [place], [place] [address]Vy# [phone] Potassium [Moles/Vol] 4.1 mmol/L Normal 3.5-5.1 [facility] [place] Comment on above: Order Comment: Campu s: M Performed By: #### L 500.03536, L500.68692, L500.27674, L500.89839, L500.70140 ####[facility] [id number] [place], [place] [address]Yf# [phone] Sodium [Moles/Vol] 137 mmol/L Normal 136-145 [facility] Comment on above: Order Comment: Campu s: M Performed By: #### L 500.06209, L500.64178, L500.18727, L500.08021, L500.23554 ####[facility] [id number] [place], [place] [address]Sx# [phone] Urea nitrogen [Mass/Vol] 17 mg/dL Normal 7-26 [facility] Comment on above: Order Comment: Campu s: M Performed By: #### L 500.38920, L500.21758, L500.42340, L500.28383, L500.62214 ####[facility] [id number] [place], [place] [address]Op# [phone] Urea nitrogen/Creatinine [Mass ratio] 26 mg/mg High 15-24 [facility] Comment on above: Order Comment: Campu s: M Performed By: #### L 500.03736, L500.67801, L500.49060, L500.59757, L500.20968 ####[facility] [id number] [place], [place] [address]Qk# [phone] CBC W/DIFFon 12-25-2021 BASO ABS 0.00 K/CU MM Normal 0-0.2 [facility] Comment on above: Order Comment: Campu s: M Performed By: #### L 200.66403 ####[facility] [id number] [place] [address]Ts# [phone] Basophils/100 WBC (Bld) 0.2 % Normal 0-2 [facility] [place] Comment on above: Order Comment: Campu s: M Performed By: #### L 200.84163 ####[facility] [id number] [place] [address]Ij# [phone] EOS ABS 0.00 K/CU MM Normal 0-0.5 [facility] [place] Comment on above: Order Comment: Campu s: M Performed By: #### L 200.36724 ####[address] [address]Px# [phone] Eosinophils/100 WBC (Bld) 0.0 % Normal 0-5 [facility] [place] Comment on above: Order Comment: Campu s: M Performed By: #### L 200.36998 ####[address] [address]Bj# [phone] Erythrocyte distribution width (RBC) [Ratio] 13.4 % Normal 11-14.5 [facility] [place] Comment on above: Order Comment: Campu s: M Performed By: #### L 200.88657 ####[address] [address]Yd# [phone] Hematocrit (Bld) [Volume fraction] 38.3 % Normal 35.0-47.0 [facility] [place] Comment on above: Order Comment: Campu s: M Performed By: #### L 200.77374 ####[address] [address]En# [phone] Hemoglobin (Bld) [Mass/Vol] 13.0 g/dL Normal 11.5-15.5 [facility] [place] Comment on above: Order Comment: Campu s: M Performed By: #### L [id number] ####[facility] [id number] [place] [address]Nu# [phone] IMMATR GRAN ABS 0.20 K/CU MM Normal Less than 2 [facility] [place] Comment on above: Order Comment: Campu s: M Performed By: #### L 200.89906 ####[facility] [id number] [place], [place] [id number]# [phone] IMMATURE GRAN % 1.0 % Normal Less than 2 [facility] [place] Comment on above: Order Comment: Campu s: M Performed By: #### L 200.74070 ####[facility] [id number] [place], [place] [address]Qj# [phone] LYMPH ABS 0.90 K/CU MM Normal 0.9-4.4 [facility] [place] Comment on above: Order Comment: Campu s: M Performed By: #### L 200.65235 ####[place] [id number]# [phone] Lymphocytes/100 WBC (Bld) 4.8 % Low 20-40 [facility] Comment on above: Order Comment: Campu s: M Performed By: #### L 200.24827 ####[place] [id number]# [phone] MCHC (RBC) [Mass/Vol] 33.9 g/dL Normal 32.0-36.0 [facility] [place] Comment on above: Order Comment: Campu s: M Performed By: #### L 200.41830 ####[facility] [id number] [place], [place] [id number]# [phone] MCV (RBC) [Entitic vol] 84.2 fL Normal 80.0-99.0 [facility] Comment on above: Order Comment: Campu s: M Performed By: #### L 200.37153 ####[facility] [id number] [place], [place] [address]Ph# [phone] MONO ABS 0.50 K/CU MM Normal 0.1-1.1 [facility] Comment on above: Order Comment: Campu s: M Performed By: #### L 200.68472 ####[facility] [id number] [place], [place] [address]Ph# [phone] Monocytes/100 WBC (Bld) 2.4 % Normal 2-10 [facility] Comment on above: Order Comment: Campu s: M Performed By: #### L 200.34645 ####[facility] [id number] [place], [place] [address]Mh# [phone] NEUTROPHIL ABS 17.60 K/CU MM High 2.0-8.3 [facility] Comment on above: Order Comment: Campu s: M Performed By: #### L 200.69365 ####[facility] [id number] [place] [address]Dz# [phone] Neutrophils/100 WBC (Bld) 91.6 % High 45-75 [facility] Comment on above: Order Comment: Campu s: M Performed By: #### L 200.96771 ####[address] [address]Jq# [phone] Nucleated RBC/100 WBC (Bld) [Ratio] 0.0 % Normal Less than 1 [facility] Comment on above: Order Comment: Campu s: M Performed By: #### L 200.46573 ####[facility] [id number] [place] [address]Uc# [phone] Platelet mean volume (Bld) [Entitic vol] 13.2 fL High 9.4-12.4 [facility] Comment on above: Order Comment: Campu s: M Performed By: #### L 200.42219 ####[address] [address]Tp# [phone] PLT 187 K/CU MM Normal 150-450 [facility] Comment on above: Order Comment: Campu s: M Result Comment: Accu racy questionable due to platelet clumping, actualplatelet count may be higher than the reported value. Performed By: #### L 200.97185 ####[facility] [id number] [place], [place] [address]Lv# [phone] PLT EST UNABLE TO QUANTITATE Normal [facility] Comment on above: Order Comment: Campu s: M Performed By: #### L 200.84430 ####[facility] [id number] [place], [place] [address]Xp# [phone] POIK 1+ Normal [facility] Comment on above: Order Comment: Campu s: M Performed By: #### L 200.13632 ####[facility] [id number] [place], [place] [address]Ho# [phone] POLY 1+ Normal [facility] Comment on above: Order Comment: Campu s: M Performed By: #### L 200.19904 ####[facility] [id number] [place], [place] [address]Jl# [phone] RBC 4.55 M/CU MM Normal 3.90-5.30 [facility] Comment on above: Order Comment: Campu s: M Performed By: #### L 200.23124 ####[facility] [id number] [place], [place] [address]Tl# [phone] WBC 19.2 K/CUMM High 4.5-11.0 [facility] Comment on above: Order Comment: Campu s: M Performed By: #### L 200.83404 ####[facility] [id number] [place] [address]Og# [phone] [facility] [place] ([id number]) 1995 F T Date Time Provider Department 12/25/21 VELIA KAUR During your visit today, we recorded the following information about you: Velia Kaur MD 12/25/2021 12:44 PM Signed 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 She is out of infusion sets for [...] every 6 hours as needed. - lancets (ONETOUCH DELICA LANCETS) 30 gauge 10 x daily DX [...] 04/16/2014 [Z34.90] 11/22/2013 04/16/2014 Diabetes mellitus in ([facility]) [O24.919] 12/25/2013 04/16/2014 DKA (diabetic ketoacidoses) [E11.10] [...] Encounter Status:Closed by VELIA KAUR on 12/25/21 [facility] DSon 12-25-2021 DS Normal [facility] GFR ESTon 12-25-2021 IF AMER Greater than 60 [facility] Comment on above: Order Comment: Campu s: M Performed By: #### L 500.67858, L500.38839, L500.78309, L500.99920, L500.78525 ####[facility] [id number] [place], [place] [address]Fp# [phone] IF non-AFR AMER Greater than 60 [facility] Comment on above: Order Comment: Campu s: M Performed By: #### L 500.04598, L500.74509, L500.03134, L500.02503, L500.90017 ####[facility] [id number] [place], [place] [address]Ej# [phone] HCGon 12-25-2021 HCG SER RESULT Negative Normal NEGATIVE [facility] Comment on above: Order Comment: Campu s: M Performed By: #### L 500.75065, L500.98128, L500.20707, L500.83192, L500.76668 ####[facility] [id number] [place], [place] [address]Rd# [phone] HP.IMS.ADMon 12-25-2021 Admission-H&P Normal [facility] HP.IMS.ADM Normal [facility] LACTATE BLOODon 12-25-2021 LACTATE BLOOD 3.03 MMOL/L High 0.40-2.00 [facility] Comment on above: Order Comment: Campu s: M Performed By: #### L 550.25197, L100.74982 ####[facility] [id number] [place], [place] [address]Nk# [phone] LIPASEon 12-25-2021 Lipase [Catalytic activity/Vol] 23 U/L Normal 12-60 [facility] Comment on above: Order Comment: Campu s: M Result Comment: NOTE NEW NORMAL RANGE DUE TO REAGENT CHANGE Performed By: #### L 500.74448, L500.65102, L500.68439, L500.51596, L500.62521 ####[facility] [id number] [place], [place] [address]Qo# [phone] LIVERon 12-25-2021 Albumin [Mass/Vol] 4.2 g/dL Normal 3.2-5.0 [facility] Comment on above: Order Comment: Campu s: M Performed By: #### L 500.29965, L500.58153, L500.44730, L500.79634, L500.57323 ####[facility] [id number] [place], [place] [address]Tp# [phone] Albumin/Globulin [Mass ratio] 1.6 {ratio} Normal 0.8-2.0 [facility] Comment on above: Order Comment: Campu s: M Performed By: #### L 500.59085, L500.11388, L500.17946, L500.85070, L500.03758 ####[facility] [id number] [place], [place] [address]Af# [phone] ALK PHOS 92 U/L Normal 45-117 [facility] Comment on above: Order Comment: Campu s: M Performed By: #### L 500.07976, L500.24370, L500.84767, L500.02773, L500.51926 ####[facility] [id number] [place], [place] [address]Ct# [phone] ALT [Catalytic activity/Vol] 13 U/L Normal 13-61 [facility] Comment on above: Order Comment: Benjiu s: M Result Comment: RESU LTS MAY BE FALSELY DEPRESSED AFTER THE ADMINISTRATION OFSULFASALAZINE AND/OR SULFAPYRIDINE. Performed By: #### L 500.22849, L500.40132, L500.93336, L500.35617, L500.51564 ####[facility] [id number] [place], [place] [address]Mu# [phone] AST [Catalytic activity/Vol] 18 U/L Normal 8-34 [facility] Comment on above: Order Comment: Benjiu s: M Result Comment: RESU LTS MAY BE FALSELY DEPRESSED AFTER THE ADMINISTRATION OFSULFASALAZINE AND/OR SULFAPYRIDINE. Performed By: #### L 500.10058, L500.33030, L500.85370, L500.47314, L500.72222 ####[facility] [id number] [place], [place] [address]Nk# [phone] BILI DIRECT 0.3 MG/DL Normal 0.00-0.36 [facility] Comment on above: Order Comment: Benjiu s: M Result Comment: NOTE NEW NORMAL RANGE DUE TO REAGENT CHANGE Performed By: #### L 500.02423, L500.67237, L500.08777, L500.67237, L500.42182 ####[facility] EYQYOOVGSS1595 [place], [place] [address]Ia# [phone] BILI TOTAL 0.90 MG/DL Normal 0.2-1.0 [facility] Comment on above: Order Comment: Zach s: M Performed By: #### L 500.76202, L500.35708, L500.25739, L500.39807, L500.93930 ####[facility] NPIYGMPHJV1794 [place], [place] [address]Iz# [phone] Globulin (S) [Mass/Vol] 2.6 g/dL Normal 2.2-4.2 [facility] Comment on above: Order Comment: Campu s: M Performed By: #### L 500.96418, L500.38035, L500.48654, L500.22661, L500.04215 ####[facility] DNIKHXJWAH4268 [place], [place] [address]Qx# [phone] Protein [Mass/Vol] 6.8 g/dL Normal 6.0-8.5 [facility] Comment on above: Order Comment: Campu s: M Performed By: #### L 500.09023, L500.25470, L500.84140, L500.70603, L500.76285 ####[facility] [id number] [place], [place] [address]Ac# [phone] [id number] 12-25-2021 SARS-CoV-2 (COVID-19) RNA DANIEL+probe Ql (Unsp spec) Negative Invalid Interpretation Code Negative [facility] Comment on above: [...] performed by PCR. Performed By: #### L 770.57209 ####[facility] [id number] [place], [place] [address]Tx# [phone] UA COMPLETEon 12-25-2021 Color (U) Straw Normal [facility] Comment on above: Order Comment: Campu s: M Performed By: #### L 600.99427 ####[facility] CSHAEBPRLP7460 [place], [place] [address]Bx# [phone] Glucose (U) [Mass/Vol] 500 mg/dL Normal NORMAL [facility] Comment on above: Order Comment: Campu s: M Performed By: #### L 600.94995 ####[facility] [id number] [place], [place] [address]Zz# [phone] UA APPEARANCE Clear Normal CLEAR [facility] [place] Comment on above: Order Comment: Campu s: M Performed By: #### L 600.03067 ####[facility] [id number] [place] [address]St# [phone] UA BILIRUBIN Negative Normal NEGATIVE [facility] [place] Comment on above: Order Comment: Campu s: M Performed By: #### L 600.25479 ####[facility] [id number] [place] [address]Oj# [phone] UA BLOOD Negative Normal NEGATIVE [facility] [place] Comment on above: Order Comment: Campu s: M Performed By: #### L 600.25551 ####[facility] [id number] [place] [address]Cw# [phone] UA KETONE 80 Normal NEGATIVE [facility] [place] Comment on above: Order Comment: Campu s: M Performed By: #### L 600.30932 ####[facility] [id number] [place] [address]Pe# [phone] UA LK ESTERASE Negative Normal NEGATIVE [facility] [place] Comment on above: Order Comment: Campu s: M Performed By: #### L 600.51328 ####[facility] [id number] [place] [address]Dc# [phone] UA NITRITE Negative Normal NEGATIVE [facility] [place] Comment on above: Order Comment: Campu s: M Performed By: #### L 600.77534 ####[facility] [id number] [place] [address]Ac# [phone] UA PH 7.0 Normal 5-6 [facility] [place] Comment on above: Order Comment: Campu s: M Performed By: #### L 600.06182 ####[facility] [id number] [place] [address]Uh# [phone] UA PROTEIN Negative Normal NEGATIVE [facility] [place] Comment on above: Order Comment: Campu s: M Performed By: #### L 600.69776 ####[facility] [id number] [place], [place] [address]Lk# [phone] UA SPEC GRAV 1.028 Normal 1.005-1.030 [facility] Comment on above: Order Comment: Campu s: M Performed By: #### L 600.72728 ####[address] [address]Na# [phone] UA UROBILINOGEN Negative Normal NORMAL [facility] Comment on above: Order Comment: Campu s: M Performed By: #### L 600.32580 ####[address] [address]Lz# [phone] VBGPEon 12-25-2021 BASE EXCESS -3.6 MMOL/L Low 0-2 [facility] Comment on above: Order Comment: Campu s: M Performed By: #### L 550.03263, L100.43689 ####[facility] [id number] [place] [address]Ul# [phone] Body temperature 98.6 [degF] Normal [facility] Comment on above: Order Comment: Campu s: M Performed By: #### L 550.30245, L100.17398 ####[address] [address]Co# [phone] EQUIPMENT UNKNOWN Normal [facility] Comment on above: Order Comment: Campu s: M Performed By: #### L 550.99448, L100.03498 ####[facility] [id number] [place] [address]Jx# [phone] HCO3 (Bld) [Moles/Vol] 17.0 mmol/L Low 22-26 M [facility] Comment on above: Order Comment: Campu s: M Performed By: #### L 550.13755, L100.37168 ####[facility] [id number] [place] [address]Fu# [phone] Hemoglobin (Bld) [Mass/Vol] 14.2 g/dL Low 16.0-22.0 [facility] [place] Comment on above: Order Comment: Campu s: M Performed By: #### L 550.57955, L100.60454 ####[facility] [id number] [place] [address]Tp# [phone] IONIZED CA 1.13 MMOL/L Normal 1.13-1.32 [facility] Comment on above: Order Comment: Campu s: M Performed By: #### L 550.25033, L100.54106 ####[facility] [id number] [place] [address]Zv# [phone] Potassium [Moles/Vol] 4.1 mmol/L Normal 3.5-5.0 [facility] Comment on above: Order Comment: Campu s: M Performed By: #### L 550.66894, L100.54849 ####[address] [address]Cu# [phone] SAMPLE SITE VENOUS Normal [facility] Comment on above: Order Comment: Campu s: M Performed By: #### L 550.63152, L100.41756 ####[address] [address]Mk# [phone] SAMPLE TYPE VENOUS Normal [facility] Comment on above: Order Comment: Campu s: M Performed By: #### L 550.53722, L100.72310 ####[facility] [id number] [place] [address]Fq# [phone] Sodium [Moles/Vol] 136 mmol/L Normal 136-148 [facility] Comment on above: Order Comment: Campu s: M Performed By: #### L 550.57504, L100.10240 ####[facility] [id number] [place] [address] 10[address]St# [phone] VBG CARBOXYHGB 1.4 % Normal 0-10 [facility] Comment on above: Order Comment: Campu s: M Performed By: #### L 550.58117, L100.97533 ####[facility] [id number] [place], [place] [address]Fd# [phone] VBG METHGB 0.3 % Low 0.4-1.5 [facility] Comment on above: Order Comment: Campu s: M Performed By: #### L 550.07796, L100.32457 ####[place] [address] [place], [place] [address]Rz# [phone] VBG O2 CAPACITY 19.4 VOL% Normal [facility] Comment on above: Order Comment: Campu s: M Performed By: #### L 550.01263, L100.03188 ####[address] [address]Ed# [phone] VBG O2 HG SATUR 65.5 % Normal 40-70 [facility] Comment on above: Order Comment: Campu s: M Performed By: #### L 550.11839, L100.94968 ####[address] [address]Wm# [phone] VBG PCO2 21.5 MMHG Critically low 40-50 [facility] Comment on above: Order Comment: Campu s: M Result Comment: CRIT ICAL VALUE(S) VERIFIED AND HAND DELIVERED TO AND READBACK BY DR. HOFFMAN AT 1835 12/25/21 BY JOSE MARCIAL. Performed By: #### L 550.22127, L100.28585 ####[facility] [id number] [place] [address] 16[address]Vo# [phone] VBG PH 7.52 MMHG High 7.31-7.41 [facility] Comment on above: Order Comment: Campu s: M Performed By: #### L 550.42807, L100.65136 ####[facility] [id number] [place], [place] [address]If# [phone] VBG PO2 LESS THAN 32.4 Low 35-45 [facility] Comment on above: Order Comment: Campu s: M Result Comment: VALU E IS OUTSIDE OF THE VERIFIED RANGES OF THIS ANALYZER.LIN MARCIAL Performed By: #### L 550.48057, L100.79475 ####[facility] [id number] [place], [place] [address]Gi# [phone] DISCH.SUMon 10-25-2021 DISCH.SUM Normal [facility] GLUCOSE METERon 10-25-2021 Glucose [Mass/Vol] 113 mg/dL Normal 70-115 [facility] Glucose [Mass/Vol] 108 mg/dL Normal 70-115 [facility] BMPon 10-24-2021 Anion gap [Moles/Vol] 12 mmol/L Normal 5-16 [facility] Comment on above: Order Comment: Campu s: M Performed By: #### L 500.35508, L500.55532 ####[facility] [id number] [place], [place] [address]Xs# [phone] Calcium [Mass/Vol] 8.4 mg/dL Low 8.5-10.5 [facility] Comment on above: Order Comment: Campu s: M Result Comment: NOTE NEW NORMAL RANGE DUE TO REAGENT CHANGE Performed By: #### L 500.37298, L500.75878 ####[facility] [id number] [place], [place] [address]Mj# [phone] Chloride [Moles/Vol] 103 mmol/L Normal 98-107 [facility] Comment on above: Order Comment: Campu s: M Performed By: #### L 500.57485, L500.02742 ####[facility] [id number] [place], [place] [address]Ya# [phone] CO2 [Moles/Vol] 24.0 mmol/L Normal 21-32 [facility] Comment on above: Order Comment: Campu s: M Performed By: #### L 500.34118, L500.58450 ####[facility] [id number] [place], [place] [address]Zr# [phone] Creatinine [Mass/Vol] 0.69 mg/dL Normal 0.510-0.950 [facility] [place] Comment on above: Order Comment: Campu s: M Result Comment: Cleopatra ents receiving either N-Acetylcysteine (NAC) orMetamizole prior to venipuncture, may have falsely depressedresults. Performed By: #### L 500.14045, L500.32273 ####[facility] LKQGPSIZHL0453 [place], [place] [address]Iv# [phone] Glucose [Mass/Vol] 113 mg/dL High 70-100 [facility] Comment on above: Order Comment: Campu s: M Result Comment: 70-1 00- Normal Fasting; 100-125 Impaired Fasting; greaterthan 126 on more than one result- Diabetes. ADA guidelines.Results may be falsely elevated after the administration ofSulfapyridine.Results may be falsely depressed after the administration ofSulfasalazine. Performed By: #### L 500.19656, L500.33967 ####[facility] [id number] [place] [address]Pe# [phone] Potassium [Moles/Vol] 3.0 mmol/L Low 3.5-5.1 [facility] Comment on above: Order Comment: Campu s: M Result Comment: NOT A CRITICAL Performed By: #### L 500.40535, L500.34973 ####[facility] [id number] [place], [place] [address]Zs# [phone] Sodium [Moles/Vol] 139 mmol/L Normal 136-145 [facility] Comment on above: Order Comment: Campu s: M Performed By: #### L 500.31184, L500.82932 ####[facility] [id number] [place], [place] [address]Bf# [phone] Urea nitrogen [Mass/Vol] 10 mg/dL Normal 7-26 [facility] Comment on above: Order Comment: Campu s: M Performed By: #### L 500.63820, L500.84788 ####[facility] [id number] [place], [place] [address]Ma# [phone] Urea nitrogen/Creatinine [Mass ratio] 15 mg/mg Normal 15-24 [facility] [place] Comment on above: Order Comment: Campu s: M Performed By: #### L 500.28218, L500.92291 ####[facility] [id number] [place], [place] [address]Jx# [phone] CBC W/DIFFon 10-24-2021 BASO ABS 0.00 K/CU MM Normal 0-0.2 [facility] [place] Comment on above: Order Comment: Campu s: M Performed By: #### L 200.36414 ####[facility] [id number] [place] [address]Ua# [phone] Basophils/100 WBC (Bld) 0.2 % Normal 0-2 [facility] [place] Comment on above: Order Comment: Campu s: M Performed By: #### L 200.24519 ####[facility] [id number] [place], [place] [address]Ph# [phone] EOS ABS 0.00 K/CU MM Normal 0-0.5 [facility] [place] Comment on above: Order Comment: Campu s: M Performed By: #### L 200.54912 ####[facility] [id number] [place] [address]Dy# [phone] Eosinophils/100 WBC (Bld) 0.0 % Normal 0-5 [facility] [place] Comment on above: Order Comment: Campu s: M Performed By: #### L 200.78070 ####[facility] [id number] [place] [address]Ih# [phone] Erythrocyte distribution width (RBC) [Ratio] 13.3 % Normal 11-14.5 [facility] Comment on above: Order Comment: Campu s: M Performed By: #### L 200.31662 ####[facility] [id number] [place] [address]Ri# [phone] Hematocrit (Bld) [Volume fraction] 36.5 % Normal 35.0-47.0 [facility] Comment on above: Order Comment: Campu s: M Performed By: #### L 200.41100 ####[facility] [id number] [place], [place] [address]Ph# [phone] Hemoglobin (Bld) [Mass/Vol] 12.3 g/dL Normal 11.5-15.5 [facility] Comment on above: Order Comment: Campu s: M Performed By: #### L 200.58962 ####[facility] [id number] [place], [place] [address]Ph# [phone] IMMATR GRAN ABS 0.20 K/CU MM Normal Less than 2 [facility] Comment on above: Order Comment: Campu s: M Performed By: #### L 200.11865 ####[place] [address]Ph# [phone] IMMATURE GRAN % 1.3 % Normal Less than 2 [facility] Comment on above: Order Comment: Campu s: M Performed By: #### L 200.81655 ####[facility] [id number] [place], [place] [address]Ph# [phone] LYMPH ABS 1.90 K/CU MM Normal 0.9-4.4 [facility] Comment on above: Order Comment: Campu s: M Performed By: #### L [id number] ####[facility] [id number] [place], [place] [id number]# [phone] Lymphocytes/100 WBC (Bld) 14.9 % Low 20-40 [facility] Comment on above: Order Comment: Campu s: M Performed By: #### L [id number] ####[facility] [id number] [place], [place] [id number]# [phone] MCHC (RBC) [Mass/Vol] 33.7 g/dL Normal 32.0-36.0 [facility] Comment on above: Order Comment: Campu s: M Performed By: #### L [id number] ####[facility] [id number] [place], [place] [id number]# [phone] MCV (RBC) [Entitic vol] 84.1 fL Normal 80.0-99.0 [facility] Comment on above: Order Comment: Campu s: M Performed By: #### L [id number] ####[facility] [id number] [place], [place] [address]Sd# [phone] MONO ABS 0.70 K/CU MM Normal 0.1-1.1 [facility] Comment on above: Order Comment: Campu s: M Performed By: #### L [id number] ####[place] [id number]# [phone] Monocytes/100 WBC (Bld) 5.3 % Normal 2-10 [facility] Comment on above: Order Comment: Campu s: M Performed By: #### L [id number] ####[place] [id number]# [phone] NEUTROPHIL ABS 10.10 K/CU MM High 2.0-8.3 [facility] Comment on above: Order Comment: Campu s: M Performed By: #### L [id number] ####[facility] [id number] [place], [place] [id number]# [phone] Neutrophils/100 WBC (Bld) 78.3 % High 45-75 [facility] Comment on above: Order Comment: Campu s: M Performed By: #### L 200.67581 ####[facility] [id number] [place], [place] [id number]# [phone] Nucleated RBC/100 WBC (Bld) [Ratio] 0.0 % Normal Less than 1 [facility] Comment on above: Order Comment: Campu s: M Performed By: #### L 200.15903 ####[facility] [id number] [place] [address]17Cd# [phone] Platelet mean volume (Bld) [Entitic vol] 11.8 fL Normal 9.4-12.4 [facility] Comment on above: Order Comment: Campu s: M Performed By: #### L 200.00477 ####[facility] [id number] [place], [place] [address]Qm# [phone] PLT 176 K/CU MM Normal 150-450 [facility] Comment on above: Order Comment: Campu s: M Performed By: #### L 200.49532 ####[facility] [id number] [place], [place] [address]Pl# [phone] RBC 4.34 M/CU MM Normal 3.90-5.30 [facility] Comment on above: Order Comment: Campu s: M Performed By: #### L 200.15560 ####[facility] ANSNOIABUJ0102 [place], [place] [address]Cd# [phone] WBC 12.9 K/CUMM High 4.5-11.0 [facility] Comment on above: Order Comment: Campu s: M Performed By: #### L 200.96758 ####[facility] [id number] [place] [address]Cx# [phone] GFR ESTon 10-24-2021 IF AMER Greater than 60 Normal [facility] Comment on above: Order Comment: Campu s: M Performed By: #### L 500.18130, L500.71800 ####[facility] [id number] [place] [address]Vm# [phone] IF non-AFR AMER Greater than 60 Normal [facility] Comment on above: Order Comment: Campu s: M Performed By: #### L 500.96185, L500.21298 ####[facility] [id number] [place] [address]Qh# [phone] GLUCOSE METERon 10-24-2021 Glucose [Mass/Vol] 203 mg/dL High 70-115 [facility] [place] Glucose [Mass/Vol] 115 mg/dL Normal 70-115 [facility] Glucose [Mass/Vol] 103 mg/dL Normal 70-115 [facility] Glucose [Mass/Vol] 112 mg/dL Normal 70-115 [facility] [place] PROG IMSon 10-24-2021 PROG IMS Normal [facility] Progress Note-Hospitalist Normal [facility] PTon 10-24-2021 INR Coag (PPP) [Relative time] 1.05 {INR} Normal 0.9-1.1 [facility] Comment on above: Order Comment: Benjiu s: M Result Comment: Den mmended PT INR therapeutic range for detention andprophylactic therapy is 2.0 - 3.0. For heart valve andshunt patients the range is 2.5 - 3.5. Performed By: #### L 300.30747 ####[facility] [id number] [place] [address]Gj# [phone] PTS 11.4 SECONDS Normal 9.5-12.0 [facility] Comment on above: Order Comment: Benjiu s: M Performed By: #### L 300.04470 ####[facility] [id number] [place] [address]Pe# [phone] UA COMPLETEon 10-24-2021 Color (U) Straw Normal [facility] Comment on above: Order Comment: Benjiu s: M Performed By: #### L 600.95674 ####[facility] [id number] [place], [place] [address]Zi# [phone] Glucose (U) [Mass/Vol] Negative Normal NORMAL Me [facility] Comment on above: Order Comment: Campu s: M Performed By: #### L 600.64399 ####[facility] [id number] [place], [place] [address]Yg# [phone] UA APPEARANCE Clear Normal CLEAR [facility] Comment on above: Order Comment: Campu s: M Performed By: #### L 600.15856 ####[facility] [id number] [place], [place] [address]Eq# [phone] UA BILIRUBIN Negative Normal NEGATIVE [facility] Comment on above: Order Comment: Campu s: M Performed By: #### L 600.73385 ####[facility] [id number] [place], [place] [address]Sj# [phone] UA BLOOD Negative Normal NEGATIVE [facility] Comment on above: Order Comment: Campu s: M Performed By: #### L 600.18529 ####[facility] [id number] [place], [place] [address]Vz# [phone] UA KETONE 20 Normal NEGATIVE [facility] Comment on above: Order Comment: Campu s: M Performed By: #### L 600.83618 ####[facility] DRUYVXKWGP9350 [place], [place] [address]Zw# [phone] UA LK ESTERASE Negative Normal NEGATIVE [facility] Comment on above: Order Comment: Campu s: M Performed By: #### L 600.02658 ####[facility] [id number] [place], [place] [address]Kn# [phone] UA NITRITE Negative Normal NEGATIVE [facility] Comment on above: Order Comment: Campu s: M Performed By: #### L 600.71437 ####[facility] [id number] [place] [address]Rz# [phone] UA PH 7.0 Normal 5-6 [facility] Comment on above: Order Comment: Campu s: M Performed By: #### L 600.04047 ####[facility] [id number] [place] [address]Cj# [phone] UA PROTEIN Negative Normal NEGATIVE [facility] Comment on above: Order Comment: Campu s: M Performed By: #### L 600.13348 ####[facility] IZQBTWGXIM3052 [place], [place] [address]Oy# [phone] UA SPEC GRAV 1.009 Normal 1.005-1.030 [facility] Comment on above: Order Comment: Campu s: M Performed By: #### L 600.84964 ####[facility] SLJDFGSNPE0575 [place], [place] [address]Vp# [phone] UA UROBILINOGEN Negative Normal NORMAL [facility] Comment on above: Order Comment: Campu s: M Performed By: #### L 600.97360 ####[facility] AZTTRRMIVX2400 [place], [place] [address]Iq# [phone] BMPon 10-23-2021 Anion gap [Moles/Vol] 12 mmol/L Normal 5-16 [facility] [place] Comment on above: Order Comment: Campu s: M Performed By: #### L 500.10191, L500.01060, L500.50098 ####[facility] LANUBPSXJA6972 [place], [place] [address]Gy# [phone] Calcium [Mass/Vol] 8.7 mg/dL Normal 8.5-10.5 [facility] Comment on above: Order Comment: Campu s: M Result Comment: NOTE NEW NORMAL RANGE DUE TO REAGENT CHANGE Performed By: #### L 500.58117, L500.78556, L500.92377 ####[facility] UWGWARYZKZ4983 [place], [place] [address]Jg# [phone] Chloride [Moles/Vol] 107 mmol/L Normal 98-107 [facility] Comment on above: Order Comment: Campu s: M Performed By: #### L 500.06673, L500.50286, L500.85168 ####[facility] PAEGQKRMYF3557 [place], [place] [address]Rp# [phone] CO2 [Moles/Vol] 22.0 mmol/L Normal 21-32 [facility] Comment on above: Order Comment: Campu s: M Performed By: #### L 500.32751, L500.06923, L500.33379 ####[facility] KRSNRBDPUR8061 [place], [place] [address]Tt# [phone] Creatinine [Mass/Vol] 0.62 mg/dL Normal 0.510-0.950 [facility] Comment on above: Order Comment: Campu s: M Result Comment: Cleopatra ents receiving either N-Acetylcysteine (NAC) orMetamizole prior to venipuncture, may have falsely depressedresults. Performed By: #### L 500.15638, L500.20221, L500.71890 ####[facility] [id number] [place], [place] [address]Us# [phone] Glucose [Mass/Vol] 208 mg/dL High 70-100 [facility] Comment on above: Order Comment: Campu s: M Result Comment: 70-1 00- Normal Fasting; 100-125 Impaired Fasting; greaterthan 126 on more than one result- Diabetes. ADA guidelines.Results may be falsely elevated after the administration ofSulfapyridine.Results may be falsely depressed after the administration ofSulfasalazine. Performed By: #### L 500.41035, L500.07824, L500.69791 ####[facility] [id number] [place], [place] [address]Kx# [phone] Potassium [Moles/Vol] 3.2 mmol/L Low 3.5-5.1 [facility] [place] Comment on above: Order Comment: Campu s: M Performed By: #### L 500.72517, L500.90236, L500.71666 ####[facility] [id number] [place], [place] [address]Wz# [phone] Sodium [Moles/Vol] 141 mmol/L Normal 136-145 [facility] Comment on above: Order Comment: Campu s: M Performed By: #### L 500.91025, L500.16147, L500.78445 ####[facility] BBNAAGYYEL6726 [place], [place] [address]Wb# [phone] Urea nitrogen [Mass/Vol] 16 mg/dL Normal 7-26 [facility] Comment on above: Order Comment: Campu s: M Performed By: #### L 500.64591, L500.31330, L500.02621 ####[facility] OURDRYBBLW0736 [place], [place] [address]Pf# [phone] Urea nitrogen/Creatinine [Mass ratio] 26 mg/mg High 15-24 [facility] Comment on above: Order Comment: Campu s: M Performed By: #### L 500.17503, L500.16083, L500.44653 ####[facility] [id number] [place] [address]Ps# [phone] CBC W/DIFFon 10-23-2021 BASO ABS 0.00 K/CU MM Normal 0-0.2 [facility] [place] Comment on above: Order Comment: Campu s: M Performed By: #### L 200.52884 ####[address] [address]Nr# [phone] Basophils/100 WBC (Bld) 0.2 % Normal 0-2 [facility] [place] Comment on above: Order Comment: Campu s: M Performed By: #### L 200.90650 ####[address] [address]Ct# [phone] EOS ABS 0.00 K/CU MM Normal 0-0.5 [facility] [place] Comment on above: Order Comment: Campu s: M Performed By: #### L 200.61159 ####[address] [address]Al# [phone] Eosinophils/100 WBC (Bld) 0.0 % Normal 0-5 [facility] [place] Comment on above: Order Comment: Campu s: M Performed By: #### L 200.38766 ####[address] [address]Qt# [phone] Erythrocyte distribution width (RBC) [Ratio] 13.9 % Normal 11-14.5 [facility] [place] Comment on above: Order Comment: Campu s: M Performed By: #### L 200.40385 ####[address] [address]Zt# [phone] Hematocrit (Bld) [Volume fraction] 32.9 % Low 35.0-47.0 [facility] Comment on above: Order Comment: Campu s: M Performed By: #### L 200.10945 ####[facility] [id number] [place], [place] [address]Ph# [phone] Hemoglobin (Bld) [Mass/Vol] 11.0 g/dL Low 11.5-15.5 [facility] [place] Comment on above: Order Comment: Campu s: M Performed By: #### L 200.35299 ####[facility] [id number] [place] [address]Kk# [phone] IMMATR GRAN ABS 0.10 K/CU MM Normal Less than 2 [facility] [place] Comment on above: Order Comment: Campu s: M Performed By: #### L 200.69070 ####[place] [address]Ph# [phone] IMMATURE GRAN % 0.8 % Normal Less than 2 [facility] [place] Comment on above: Order Comment: Campu s: M Performed By: #### L 200.02432 ####[place] [address]Ph# [phone] LYMPH ABS 1.80 K/CU MM Normal 0.9-4.4 [facility] [place] Comment on above: Order Comment: Campu s: M Performed By: #### L 200.91701 ####[place] [address]Ph# [phone] Lymphocytes/100 WBC (Bld) 10.5 % Low 20-40 [facility] Comment on above: Order Comment: Campu s: M Performed By: #### L 200.75991 ####[facility] [id number] [place], [place] [address]Ph# [phone] MCHC (RBC) [Mass/Vol] 33.4 g/dL Normal 32.0-36.0 [facility] [place] Comment on above: Order Comment: Campu s: M Performed By: #### L 200.58256 ####[facility] [id number] [place], [place] [address]Ph# [phone] MCV (RBC) [Entitic vol] 84.6 fL Normal 80.0-99.0 [facility] Comment on above: Order Comment: Campu s: M Performed By: #### L 200.11229 ####[facility] NNUXZSERDE3354 [place], [place] [address]Fi# [phone] MONO ABS 0.70 K/CU MM Normal 0.1-1.1 [facility] Comment on above: Order Comment: Campu s: M Performed By: #### L 200.19221 ####[facility] [id number] [place] [address]Ph# [phone] Monocytes/100 WBC (Bld) 3.9 % Normal 2-10 [facility] Comment on above: Order Comment: Campu s: M Performed By: #### L 200.21677 ####[facility] DIPFYUDKPO7813 [place] [address]Ph# [phone] NEUTROPHIL ABS 14.50 K/CU MM High 2.0-8.3 [facility] Comment on above: Order Comment: Campu s: M Performed By: #### L 200.45989 ####[facility] [id number] [place], [place] [address]Ph# [phone] Neutrophils/100 WBC (Bld) 84.6 % High 45-75 [facility] Comment on above: Order Comment: Campu s: M Performed By: #### L 200.81334 ####[facility] WURUKOSKMD5741 [place] [address]Ph# [phone] Nucleated RBC/100 WBC (Bld) [Ratio] 0.0 % Normal Less than 1 [facility] Comment on above: Order Comment: Campu s: M Performed By: #### L 200.52503 ####[facility] NDODZOIXZL5812 [place] [address]Ph# [phone] Platelet mean volume (Bld) [Entitic vol] 12.2 fL Normal 9.4-12.4 [facility] Comment on above: Order Comment: Campu s: M Performed By: #### L 200.83718 ####[facility] TMULXDMWAN0092 [place], [place] [address]Th# [phone] PLT 145 K/CU MM Low 150-450 [facility] Comment on above: Order Comment: Campu s: M Performed By: #### L 200.15210 ####[facility] AZFSPUKPIU8852 [place], [place] [address]Oj# [phone] RBC 3.89 M/CU MM Low 3.90-5.30 [facility] Comment on above: Order Comment: Campu s: M Performed By: #### L 200.28972 ####[facility] BXNUFMVPMF2722 [place], [place] [address]Lg# [phone] WBC 17.1 K/CUMM High 4.5-11.0 [facility] Comment on above: Order Comment: Campu s: M Performed By: #### L 200.81290 ####[facility] [id number] [place] [address]Sj# [phone] GFR ESTon 10-23-2021 IF AMER Greater than 60 Normal [facility] [place] Comment on above: Order Comment: Campu s: M Performed By: #### L 500.48692, L500.96825, L500.77363 ####[facility] JETFLDASHK2714 [place], [place] [address]Iz# [phone] IF non-AFR AMER Greater than 60 Normal [facility] Comment on above: Order Comment: Campu s: M Performed By: #### L 500.24585, L500.82994, L500.32227 ####[facility] MWWKPBTIKP6687 [place], [place] [address]Ke# [phone] GLUCOSE METERon 10-23-2021 Glucose [Mass/Vol] 142 mg/dL High 70-115 [facility] [place] Glucose [Mass/Vol] 127 mg/dL High 70-115 [facility] [place] Glucose [Mass/Vol] 172 mg/dL High 70-115 [facility] MAGNESIUMon 10-23-2021 Magnesium [Mass/Vol] 1.7 mg/dL Normal 1.6-2.6 [facility] Comment on above: Order Comment: Campu s: M Performed By: #### L 500.13830, L500.90021, L500.12422 ####[facility] ZXMPWQUBJR8605 [place], [place] [address]Gn# [phone] PROG IMSon 10-23-2021 PROG IMS Normal [facility] Progress Note-Hospitalist Normal [facility] BMPon 10-22-2021 Anion gap [Moles/Vol] 10 mmol/L Normal 5-16 [facility] Comment on above: Order Comment: Campu s: M Performed By: #### L 500.24978, L500.56949 ####[facility] OOCGWFOGWP2625 [place], [place] [address]Ku# [phone] Calcium [Mass/Vol] 8.9 mg/dL Normal 8.5-10.5 [facility] Comment on above: Order Comment: Campu s: M Result Comment: NOTE NEW NORMAL RANGE DUE TO REAGENT CHANGE Performed By: #### L 500.07067, L500.98549 ####[facility] TMYOVCTTIO7836 [place], [place] [address]Lf# [phone] Chloride [Moles/Vol] 109 mmol/L High 98-107 [facility] Comment on above: Order Comment: Campu s: M Performed By: #### L 500.77203, L500.04807 ####[facility] DTKTQYFDMB5238 [place], [place] [address]Lu# [phone] CO2 [Moles/Vol] 20.0 mmol/L Low 21-32 [facility] Comment on above: Order Comment: Campu s: M Performed By: #### L 500.81756, L500.86946 ####[facility] ORBZQWXDMX9615 [place], [place] [address]Jo# [phone] Creatinine [Mass/Vol] 0.63 mg/dL Normal 0.510-0.950 [facility] Comment on above: Order Comment: Campu s: M Result Comment: Cleopatra ents receiving either N-Acetylcysteine (NAC) orMetamizole prior to venipuncture, may have falsely depressedresults. Performed By: #### L 500.11956, L500.45598 ####[facility] DSOMWRWWHL5355 [place], [place] [address]Fs# [phone] Glucose [Mass/Vol] 237 mg/dL High 70-100 [facility] Comment on above: Order Comment: Campu s: M Result Comment: 70-1 00- Normal Fasting; 100-125 Impaired Fasting; greaterthan 126 on more than one result- Diabetes. ADA guidelines.Results may be falsely elevated after the administration ofSulfapyridine.Results may be falsely depressed after the administration ofSulfasalazine. Performed By: #### L 500.12120, L5.67661 ####[facility] [id number] [place] [address]Hz# [phone] Potassium [Moles/Vol] 3.8 mmol/L Normal 3.5-5.1 [facility] Comment on above: Order Comment: Campu s: M Performed By: #### L 500.08879, L5.57820 ####[facility] [id number] [place] [address]Sz# [phone] Sodium [Moles/Vol] 140 mmol/L Normal 136-145 [facility] Comment on above: Order Comment: Campu s: M Performed By: #### L 500.85562, L5.54445 ####[facility] [id number] [place] [address]Xj# [phone] Urea nitrogen [Mass/Vol] 15 mg/dL Normal 7-26 [facility] Comment on above: Order Comment: Campu s: M Performed By: #### L 500.01761, L5.64247 ####[facility] [id number] [place] [address]Uz# [phone] Urea nitrogen/Creatinine [Mass ratio] 24 mg/mg Normal 15-24 [facility] Comment on above: Order Comment: Campu s: M Performed By: #### L 500.02428, L500.76538 ####[facility] NIWCXIMCYP6286 [place], [place] [address]Cy# [phone] Urea nitrogen/Creatinine [Mass ratio] 25 mg/mg High 15-24 [facility] [place] Comment on above: Order Comment: Campu s: M Performed By: #### L 500.53361, L500.04840, L500.38085, L500.64773 ####[facility] EFSFELMNSO9431 [place], [place] [address]Vy# [phone] Anion gap [Moles/Vol] 12 mmol/L Normal 5-16 [facility] [place] Comment on above: Order Comment: Campu s: M Performed By: #### L 500.88887, L500.17660, L500.18210, L500.56191 ####[facility] SWYVEFXJQE1785 [place], [place] [address]Yi# [phone] Calcium [Mass/Vol] 10.1 mg/dL Normal 8.5-10.5 [facility] Comment on above: Order Comment: Campu s: M Result Comment: NOTE NEW NORMAL RANGE DUE TO REAGENT CHANGE Performed By: #### L 500.23371, L500.45010, L500.31130, L500.23137 ####[facility] AFTNRDTXQU7597 [place], [place] [address]Vr# [phone] Chloride [Moles/Vol] 107 mmol/L Normal 98-107 [facility] Comment on above: Order Comment: Campu s: M Performed By: #### L 500.90813, L500.54860, L500.85176, L500.81952 ####[facility] [id number] [place], [place] [address]Me# [phone] CO2 [Moles/Vol] 20.0 mmol/L Low 21-32 [facility] Comment on above: Order Comment: Campu s: M Performed By: #### L 500.83493, L500.86593, L500.80311, L500.31735 ####[facility] [id number] [place], [place] [address]Si# [phone] Creatinine [Mass/Vol] 0.64 mg/dL Normal 0.510-0.950 [facility] Comment on above: Order Comment: Zach s: M Result Comment: Cleopatra ents receiving either N-Acetylcysteine (NAC) orMetamizole prior to venipuncture, may have falsely depressedresults. Performed By: #### L 500.96371, L500.18809, L500.36924, L500.95100 ####[facility] DUQSFEPVKC7553 [place], [place] [address]Un# [phone] Glucose [Mass/Vol] 309 mg/dL High 70-100 [facility] Comment on above: Order Comment: Benjiu s: M Result Comment: 70-1 00- Normal Fasting; 100-125 Impaired Fasting; greaterthan 126 on more than one result- Diabetes. ADA guidelines.Results may be falsely elevated after the administration ofSulfapyridine.Results may be falsely depressed after the administration ofSulfasalazine. Performed By: #### L 500.97463, L500.78188, L500.66245, L500.32364 ####[facility] [id number] [place], [place] [address]Jl# [phone] Potassium [Moles/Vol] 3.9 mmol/L Normal 3.5-5.1 [facility] Comment on above: Order Comment: Zach s: M Performed By: #### L 500.75667, L500.25982, L500.38290, L500.29706 ####[facility] DJZUQYYSDV8839 [place], [place] [address]Hb# [phone] Sodium [Moles/Vol] 139 mmol/L Normal 136-145 [facility] Comment on above: Order Comment: Zach s: M Performed By: #### L 500.11390, L500.69649, L500.75265, L500.09126 ####[facility] CIUHJEUZOZ4797 [place], [place] [address]Po# [phone] Urea nitrogen [Mass/Vol] 16 mg/dL Normal 7-26 [facility] [place] Comment on above: Order Comment: Campu s: M Performed By: #### L 500.06567, L500.37382, L500.84425, L500.78860 ####[facility] OTSYJIODCN1931 [place], [place] [address]Ey# [phone] CBC W/DIFFon 10-22-2021 BASO ABS 0.10 K/CU MM Normal 0-0.2 [facility] [place] Comment on above: Order Comment: Campu s: M Performed By: #### L 200.23601 ####[address] [address]Si# [phone] Basophils/100 WBC (Bld) 0.2 % Normal 0-2 [facility] Comment on above: Order Comment: Campu s: M Performed By: #### L 200.01788 ####[facility] [id number] [place], [place] [address]Ph# [phone] EOS ABS 0.00 K/CU MM Normal 0-0.5 [facility] [place] Comment on above: Order Comment: Campu s: M Performed By: #### L [id number] ####[facility] [id number] [place] [address]Lr# [phone] Eosinophils/100 WBC (Bld) 0.0 % Normal 0-5 [facility] Comment on above: Order Comment: Campu s: M Performed By: #### L 200.29000 ####[facility] [id number] [place] [address]Eg# [phone] Erythrocyte distribution width (RBC) [Ratio] 13.5 % Normal 11-14.5 [facility] Comment on above: Order Comment: Campu s: M Performed By: #### L [id number] ####[facility] [id number] [place] [address]Dk# [phone] Hematocrit (Bld) [Volume fraction] 39.5 % Normal 35.0-47.0 [facility] [place] Comment on above: Order Comment: Campu s: M Performed By: #### L [id number] ####[facility] [id number] [place] [id number]# [phone] Hemoglobin (Bld) [Mass/Vol] 13.4 g/dL Normal 11.5-15.5 [facility] Comment on above: Order Comment: Campu s: M Performed By: #### L 200.61743 ####[facility] [id number] [place], [place] [id number]# [phone] IMMATR GRAN ABS 0.20 K/CU MM Normal Less than 2 [facility] [place] Comment on above: Order Comment: Campu s: M Performed By: #### L [id number] ####[facility] [facility] [id number] [place], [place] [id number]# [phone] IMMATURE GRAN % 1.0 % Normal Less than 2 [facility] [place] Comment on above: Order Comment: Campu s: M Performed By: #### L 200.88609 ####[facility] [id number] [place], [place] [address]Ph# [phone] LYMPH ABS 1.30 K/CU MM Normal 0.9-4.4 [facility] Comment [facility] above: Order Comment: Campu s: M Performed By: #### L 200.86014 ####[facility] [id number] [place], [place] [address]Ph# [phone] Lymphocytes/100 WBC (Bld) 5.6 % Low 20-40 [facility] Comment on above: Order Comment: Campu s: M Performed By: #### L 200.63611 ####[facility] [id number] [place], [place] [address]Ph# [phone] MCHC (RBC) [Mass/Vol] 33.9 g/dL Normal 32.0-36.0 [facility] [place] Comment on above: Order Comment: Campu s: M Performed By: #### L 200.23357 ####[facility] [id number] [place], [place] [address]Xl# [phone] MCV (RBC) [Entitic vol] 84.4 fL Normal 80.0-99.0 [facility] [place] Comment on above: Order Comment: Campu s: M Performed By: #### L 200.41590 ####[address] [address]Xi# [phone] MONO ABS 0.60 K/CU MM Normal 0.1-1.1 [facility] [place] Comment on above: Order Comment: Campu s: M Performed By: #### L 200.53098 ####[place] [address]Ph# [phone] Monocytes/100 WBC (Bld) 2.6 % Normal 2-10 [facility] Comment on above: Order Comment: Campu s: M Performed By: #### L 200.71972 ####[facility] [id number] [place], [place] [address]Ph# [phone] NEUTROPHIL ABS 20.70 K/CU MM High 2.0-8.3 [facility] [place] Comment on above: Order Comment: Campu s: M Performed By: #### L 200.29341 ####[facility] [id number] [place] [address]Mc# [phone] Neutrophils/100 WBC (Bld) 90.6 % High 45-75 [facility] [place] Comment on above: Order Comment: Campu s: M Performed By: #### L 200.46444 ####[facility] [id number] [place] [address]Kk# [phone] Nucleated RBC/100 WBC (Bld) [Ratio] 0.0 % Normal Less than 1 [facility] [place] Comment on above: Order Comment: Campu s: M Performed By: #### L 200.11845 ####[facility] [id number] [place] [address]Dp# [phone] Platelet mean volume (Bld) [Entitic vol] 13.2 fL High 9.4-12.4 [facility] [place] Comment on above: Order Comment: Campu s: M Performed By: #### L 200.48321 ####[facility] [id number] [place], [place] [address]Ih# [phone] PLT 164 K/CU MM Normal 150-450 [facility] [place] Comment on above: Order Comment: Campu s: M Result Comment: Conf irmed by slide estimate. Performed By: #### L 200.93101 ####[facility] [id number] [place], [place] [address]Qe# [phone] PLT EST ADEQUATE Normal [facility] Comment on above: Order Comment: Campu s: M Performed By: #### L 200.35477 ####[facility] [id number] [place] [address]Gw# [phone] POIK 1+ Normal [facility] Comment on above: Order Comment: Campu s: M Performed By: #### L 200.01787 ####[facility] [id number] [place] [address]Wf# [phone] POLY 1+ Normal [facility] [place] Comment on above: Order Comment: Campu s: M Performed By: #### L 200.08389 ####[facility] [id number] [place], [place] [address]Ek# [phone] RBC 4.68 M/CU MM Normal 3.90-5.30 [facility] Comment on above: Order Comment: Campu s: M Performed By: #### L 200.09142 ####[facility] [id number] [place], [place] [address]Ca# [phone] WBC 22.9 K/CUMM High 4.5-11.0 [facility] [place] Comment on above: Order Comment: Campu s: M Performed By: #### L 200.97353 ####[facility] [id number] [place], [place] [address]Da# [phone] Stacie 02-25-2022 EMERGENCY PHYSICIAN REPORT This is a preliminary report only, as the practitioner review and authentication has not occurred. Normal [facility] [place] ER Normal [facility] [place] GFR ESTon 10-22-2021 IF AMER Greater than 60 Normal [facility] Comment on above: Order Comment: Campu s: M Performed By: #### L 500.31723, L500.81417 ####[facility] [id number] [place], [place] [address]Xq# [phone] IF non-AFR AMER Greater than 60 Normal [facility] Comment on above: Order Comment: Campu s: M Performed By: #### L 500.82388, L500.74163 ####[facility] [id number] [place], [place] [address]Ar# [phone] IF AMER Greater than 60 [facility] Comment on above: Order Comment: Campu s: M Performed By: #### L 500.88855, L500.48054, L500.96444, L500.28660 ####[facility] [id number] [place], [place] [address]Ny# [phone] IF non-AFR AMER Greater than 60 Normal [facility] Comment on above: Order Comment: Campu s: M Performed By: #### L 500.00376, L500.46236, L500.53541, L500.37310 ####[facility] [id number] [place], [place] [address]Pd# [phone] GLUCOSE METERon 10-22-2021 Glucose [Mass/Vol] 145 mg/dL High 70-115 [facility] [place] Glucose [Mass/Vol] 255 mg/dL High 70-115 [facility] Glucose [Mass/Vol] 232 mg/dL High 70-115 [facility] Glucose [Mass/Vol] 269 mg/dL High 70-115 [facility] Glucose [Mass/Vol] 249 mg/dL High 70-115 [facility] [place] HPon 10-22-2021 HP Normal [facility] LIPASEon 02-25-2022 Lipase [Catalytic activity/Vol] 18 U/L Normal 12-60 [facility] Comment on above: Order Comment: Campu s: M Result Comment: NOTE NEW NORMAL RANGE DUE TO REAGENT CHANGE Performed By: #### L 500.80720, L500.07990, L500.22611, L500.69342 ####[facility] [id number] [place], [place] [address]Yp# [phone] LIVERon 10-22-2021 Globulin (S) [Mass/Vol] 2.8 g/dL Normal 2.2-4.2 [facility] Comment on above: Order Comment: Campu s: M Performed By: #### L 500.96990, L500.73720, L500.00504, L500.06319 ####[place] [address] [place], [place] [address]Hq# [phone] Albumin/Globulin [Mass ratio] 1.54 {ratio} Normal 0.8-2.0 [facility] Comment on above: Order Comment: Campu s: M Performed By: #### L 500.84681, L500.24693, L500.13593, L500.94167 ####[facility] [id number] [place], [place] [address]Kl# [phone] Albumin [Mass/Vol] 4.3 g/dL Normal 3.2-5.0 [facility] Comment on above: Order Comment: Campu s: M Performed By: #### L 500.21326, L500.08036, L500.11528, L500.09990 ####[facility] [id number] [place], [place] [address]Gd# [phone] ALK PHOS 100 U/L Normal 45-117 [facility] Comment on above: Order Comment: Campu s: M Performed By: #### L 500.79690, L500.44060, L500.34440, L500.13742 ####[facility] [id number] [place], [place] [address]Yr# [phone] ALT [Catalytic activity/Vol] 9 U/L Low 13-61 [facility] Comment on above: Order Comment: Campu s: M Result Comment: RESU LTS MAY BE FALSELY DEPRESSED AFTER THE ADMINISTRATION OFSULFASALAZINE AND/OR SULFAPYRIDINE. Performed By: #### L 500.67936, L500.41628, L500.50895, L500.26890 ####[facility] [id number] [place], [place] [address]Ww# [phone] AST [Catalytic activity/Vol] 12 U/L Normal 8-34 [facility] Comment on above: Order Comment: Campu s: M Result Comment: RESU LTS MAY BE FALSELY DEPRESSED AFTER THE ADMINISTRATION OFSULFASALAZINE AND/OR SULFAPYRIDINE. Performed By: #### L 500.50653, L500.65017, L500.78410, L500.03238 ####[facility] [id number] [place], [place] [address]Bi# [phone] BILI DIRECT 0.3 MG/DL Normal 0.00-0.36 [facility] Comment on above: Order Comment: Campu s: M Result Comment: NOTE NEW NORMAL RANGE DUE TO REAGENT CHANGE Performed By: #### L 500.01561, L500.63235, L500.10279, L500.45428 ####[facility] [id number] [place], [place] [address]Wz# [phone] BILI TOTAL 0.80 MG/DL Normal 0.2-1.0 [facility] Comment on above: Order Comment: Campu s: M Performed By: #### L 500.06177, L500.92248, L500.76223, L500.57040 ####[facility] [id number] [place], [place] [address]Wh# [phone] Protein [Mass/Vol] 7.1 g/dL Normal 6.0-8.5 [facility] Comment on above: Order Comment: Campu s: M Performed By: #### L 500.20601, L500.93009, L500.27493, L500.54727 ####[facility] [id number] [place], [place] [address]Ca# [phone] [id number] 10-22-2021 SARS-CoV-2 (COVID-19) RNA DANIEL+probe Ql (Unsp spec) Negative Invalid Interpretation Code Negative [facility] Comment on above: Order Comment: Campu s: M Result Comment: RESU LTS CALLED TO ALONZO MORALES/EDAT 0106 10/22/21 BY JHOANA PALMERNegative results do not preclude SARS-CoV-2 infection andshould not be used as the sole basis for treatment or otherpatient management decisions. Negative results must becombined with clinical observation, patient history, andepidemiological information.This test was performed by PCR. Performed By: #### L 770.63747 ####[facility] [id number] [place], [place] [address]Wa# [phone] UA COMPLETEon 10-22-2021 UA UROBILINOGEN Negative Normal NORMAL [facility] Comment on above: Order Comment: Campu s: M Performed By: #### L 600.58728 ####[facility] [id number] [place], [place] [address]Dz# [phone] Color (U) YELLOW Normal [facility] Comment on above: Order Comment: Campu s: M Performed By: #### L 600.89096 ####[facility] [id number] [place], [place] [address]Ln# [phone] Glucose (U) [Mass/Vol] mg/dL Normal NORMAL [facility] Comment on above: Order Comment: Campu s: M Performed By: #### L 600.21795 ####[facility] [id number] [place], [place] [address]Ql# [phone] Mucus Ql (Urine sed) TRACE Normal NEGATIVE [facility] Comment on above: Order Comment: Campu s: M Performed By: #### L 600.03150 ####[facility] [id number] [place], [place] [address]Iq# [phone] SQUAMOUS EPIS 2 EPI/HPF Normal 0-5 [facility] Comment on above: Order Comment: Campu s: M Performed By: #### L 600.37822 ####[facility] [id number] [place], [place] [address]Cu# [phone] UA APPEARANCE CLEAR Normal CLEAR [facility] Comment on above: Order Comment: Campu s: M Performed By: #### L 600.99268 ####[facility] [id number] [place] [address]Ez# [phone] UA BACTERIA NONE Normal NONE [facility] Comment on above: Order Comment: Campu s: M Performed By: #### L 600.14012 ####[facility] [id number] [place] [address]Al# [phone] UA BILIRUBIN Negative Normal NEGATIVE [facility] Comment on above: Order Comment: Campu s: M Performed By: #### L 600.32608 ####[facility] [id number] [place] [address]Ji# [phone] UA BLOOD SMALL Normal NEGATIVE [facility] Comment on above: Order Comment: Campu s: M Performed By: #### L 600.71972 ####[facility] [id number] [place] [address]Ub# [phone] UA KETONE 80 Normal NEGATIVE [facility] Comment on above: Order Comment: Campu s: M Performed By: #### L 600.84874 ####[facility] [id number] [place] [address]Dt# [phone] UA LK ESTERASE N Normal NEGATIVE [facility] Comment on above: Order Comment: Campu s: M Performed By: #### L 600.25778 ####[facility] [id number] [place] [address]Ld# [phone] UA NITRITE Negative Normal NEGATIVE [facility] Comment on above: Order Comment: Campu s: M Performed By: #### L 600.96553 ####[facility] [id number] [place] [address]Xl# [phone] UA PH 6.0 Normal 5-6 [facility] Comment on above: Order Comment: Campu s: M Performed By: #### L 600.07615 ####[facility] [id number] [place], [place] [address]Hg# [phone] UA PROTEIN 30 Normal NEGATIVE [facility] Comment on above: Order Comment: Campu s: M Performed By: #### L 600.22253 ####[facility] [id number] [place] [address]Ys# [phone] UA RBC NONE Low 0-3 [facility] Comment on above: Order Comment: Campu s: M Performed By: #### L 600.53421 ####[facility] [id number] [place] [address] 197[address]Pt# [phone] UA SPEC GRAV 1.023 Normal 1.005-1.030 [facility] Comment on above: Order Comment: Campu s: M Performed By: #### L 600.28232 ####[facility] [id number] [place] [address]Iu# [phone] UA WBC 1 WBC/HPF Normal 0-5 [facility] Comment on above: Order Comment: Campu s: M Performed By: #### L 600.76679 ####[facility] [id number] [place] [address]Uf# [phone] VBG PHon 10-22-2021 VBG PH 7.49 MMHG High 7.31-7.41 [facility] Comment on above: Order Comment: Campu s: M Performed By: #### L 100.19370 ####[facility] [id number] [place] [address]Qi# [phone] BLOOD CULTUREon 06-09-2021 Bacteria identified Cx Nom (Bld) NO GROWTH AFTER 5 DAYS Normal [facility] Comment on above: Order Comment: Campu s: M Performed By: #### M 050.25003 ####[facility] [id number] [place] [address]Es# [phone] Bacteria identified Cx Nom (Bld) NO GROWTH AFTER 5 DAYS Normal [facility] Comment on above: Order Comment: Zach s: M Performed By: #### M 050.98370 ####[facility] [id number] [place], [place] [address]Bk# [phone] GLUCOSE METERon 06-07-2021 Glucose [Mass/Vol] 44 mg/dL Critically low 70-115 [facility] 06-05-2021 Bacteria identified Cx Nom (Bld) NO GROWTH AFTER 5 DAYS Normal [facility] Comment on above: Order Comment: Benjiu s: M Performed By: #### M 050.26481 ####[facility] [id number] [place], [place] [address]Yv# [phone] DISCH.SUMon 06-05-2021 DISCH.SUM Normal [facility] GLUCOSE METERon 06-05-2021 Glucose [Mass/Vol] 104 mg/dL Normal 70-115 [facility] [place] Glucose [Mass/Vol] 83 mg/dL Normal 70-115 [facility] [place] Glucose [Mass/Vol] 105 mg/dL Normal 70-115 [facility] [place] Glucose [Mass/Vol] 177 mg/dL High 70-115 [facility] Glucose [Mass/Vol] 61 mg/dL Low 70-115 [facility] PROG.ENDOon 06-05-2021 PROG.ENDO Normal [facility] Progress Note-Endocrinology Normal [facility] BCID PCRon 06-04-2021 BC ACINETOBACTE Not detected Normal NOT DETECTD [facility] Comment on above: Performed By: #### L [id number] ####[facility] [id number] [place], [place] [address]Sa# [phone] BC BETA STREP A Not detected Normal NOT DETECTD [facility] Comment on above: Performed By: #### L [id number] ####[facility] [id number] [place], [place] [address]Av# [phone] BC BETA STREP B Not detected Normal NOT DETECTD [facility] [place] Comment on above: Performed By: #### L 770. ####[facility] [id number] [place], [place] [address]Cr# [phone] BC C ALBICANS Not detected Normal NOT DETECTD [facility] Comment on above: Performed By: #### L 770. ####[facility] [id number] [place], [place] [address]Bj# [phone] BC C GLABRATA Not detected Normal NOT DETECTD [facility] Comment on above: Performed By: #### L 770. ####[facility] [id number] [place], [place] [address]Zu# [phone] BC C KRUSEI Not detected Normal NOT DETECTD [facility] Comment on above: Performed By: #### L 770. ####[facility] [id number] [place], [place] [address]Gf# [phone] BC C PARAPSILOS Not detected Normal NOT DETECTD [facility] Comment on above: Performed By: #### L 770. ####[facility] [id number] [place], [place] [address]Rk# [phone] BC C TROPICALIS Not detected Normal NOT DETECTD [facility] Comment on above: Performed By: #### L 770. ####[facility] [id number] [place], [place] [address]Eo# [phone] BC E COLI Not detected Normal NOT DETECTD [facility] Comment on above: Performed By: #### L 770. ####[facility] [id number] [place], [place] [address]Xc# [phone] BC ENTER CLOACA Not detected Normal NOT DETECTD [facility] Comment on above: Performed By: #### L 770. ####[facility] [id number] [place], [place] [address]Jg# [phone] BC ENTEROCOCCUS Not detected Normal NOT DETECTD [facility] Comment on above: Performed By: #### L 770.08745 ####[facility] [id number] [place], [place] [address]Ek# [phone] BC H.INFLUENZA Not detected Normal NOT DETECTD [facility] [place] Comment on above: Performed By: #### L 770. ####[facility] [id number] [place], [place] [address]Lr# [phone] BC KLEB OXYTOCA Not detected Normal NOT DETECTD [facility] Comment on above: Performed By: #### L 770. ####[facility] [id number] [place], [place] [address]Ps# [phone] BC KLEB PNEUMO Not detected Normal NOT DETECTD [facility] Comment on above: Performed By: #### L 770. ####[facility] [id number] [place], [place] [address]Xu# [phone] BC KPC Not detected Normal NOT DETECTD [facility] Comment on above: Performed By: #### L 770. ####[facility] [id number] [place], [place] [address]Pe# [phone] BC LISTERIA Not detected Normal NOT DETECTD [facility] [place] Comment on above: Performed By: #### L 770 ####[facility] [id number] [place], [place] [address]Bn# [phone] BC MEC A Not detected Normal NOT DETECTD [facility] [place] Comment on above: Performed By: #### L 770. ####[facility] [id number] [place], [place] [address]My# [phone] BC N MENINGITID Not detected Normal NOT DETECTD [facility] [place] Comment on above: Performed By: #### L 770. ####[facility] [id number] [place], [place] [address]Te# [phone] BC PROTEUS SP. Not detected Normal NOT DETECTD [facility] [place] Comment on above: Performed By: #### L 770. ####[facility] [id number] [place], [place] [address]Pc# [phone] BC PSEUDO AERUG Not detected Normal NOT DETECTD [facility] Comment on above: Performed By: #### L 770.57494 ####[facility] [id number] [place], [place] [address]Wt# [phone] BC SERRATIA MAR Not detected Normal NOT DETECTD [facility] Comment on above: Performed By: #### L 770.83471 ####[facility] [id number] [place], [place] [address]Cb# [phone] BC STAPH AUREUS Not detected Normal NOT DETECTD [facility] Comment on above: Performed By: #### L 770.07385 ####[facility] [id number] [place], [place] [address]Xn# [phone] BC STAPH SPE. Not detected Normal NOT DETECTD [facility] Comment on above: Performed By: #### L 770.74477 ####[facility] [id number] [place] [address]Qy# [phone] BC STREP PNEUMO Not detected Normal NOT DETECTD [facility] Comment on above: Performed By: #### L 770.79261 ####[facility] [id number] [place], [place] [address]Fb# [phone] BC STREPTOCOCCU Not detected Normal NOT DETECTD [facility] Comment on above: Performed By: #### L 770.46065 ####[facility] [id number] [place] [address]Xq# [phone] BC VAN A/B Not detected Normal NOT DETECTD [facility] Comment on above: Performed By: #### L 770.33588 ####[facility] [id number] [place], [place] [address]Ki# [phone] ENTEROBACEAE SP Not detected Normal NOT DETECTD [facility] Comment on above: Performed By: #### L 770.05820 ####[facility] [id number] [place] [address]Bw# [phone] BLOOD CULTUREon 06-04-2021 Bacteria identified Cx Nom (Bld) INITIAL POSITIVE BLOOD CULTURE RESULTS CALLED TO MICHELLE RN/8M AND READ BACK BY AT 201206/02/21 BY NANI CARLISLE ORGANISM 1: MICROCOCCUS SP./RELATED GENERA ID TO FOLLOW NOT VIABLE FOR SENSITIVITY Normal [facility] Comment on above: Order Comment: Campu s: M Performed By: #### M 050.50457 ####[facility] [id number] [place], [place] [address]Vd# [phone] GLUCOSE METERon 06-04-2021 Glucose [Mass/Vol] 161 mg/dL High 70-115 [facility] Glucose [Mass/Vol] 79 mg/dL Normal 70-115 [facility] Glucose [Mass/Vol] 236 mg/dL High 70-115 [facility] Glucose [Mass/Vol] 273 mg/dL High 70-115 [facility] Glucose [Mass/Vol] 221 mg/dL High 70-115 [facility] Glucose [Mass/Vol] 305 mg/dL High 70-115 [facility] [place] PROG IMSon 06-04-2021 PROG IMS Normal [facility] Progress Note-Hospitalist Normal [facility] PROG.ENDOon 06-04-2021 PROG.ENDO Normal [facility] Progress Note-Endocrinology Normal [facility] BMPon 06-03-2021 Anion gap [Moles/Vol] 9 mmol/L Normal 5-16 [facility] Comment on above: Order Comment: Campu s: MMinimal Draw: Y Performed By: #### L [id number], L500.74796, L500.33801 ####[facility] [id number] [place], [place] [address]Dd# [phone] Calcium [Mass/Vol] 8.5 mg/dL Normal 8.5-10.5 [facility] Comment on above: Order Comment: Campu s: MMinimal Draw: Y Result Comment: NOTE NEW NORMAL RANGE DUE TO REAGENT CHANGE Performed By: #### L 500.95566, L500.24892, L500.45687 ####[facility] [id number] [place], [place] [address]Ma# [phone] Chloride [Moles/Vol] 109 mmol/L High 98-107 [facility] Comment on above: Order Comment: Campu s: MMinimal Draw: Y Performed By: #### L 500.10631, L500.47958, L500.62680 ####[facility] [id number] [place], [place] [address]Di# [phone] CO2 [Moles/Vol] 23.0 mmol/L Normal 21-32 [facility] Comment on above: Order Comment: Campu s: MMinimal Draw: Y Performed By: #### L [id number], L500.36192, L500.77790 ####[facility] [id number] [place], [place] [address]Id# [phone] Creatinine [Mass/Vol] 0.70 mg/dL Normal 0.510-0.950 [facility] Comment on above: Order Comment: Campu s: MMinimal Draw: Y Result Comment: Cleopatra ents receiving either N-Acetylcysteine (NAC) orMetamizole prior to venipuncture, may have falsely depressedresults. Performed By: #### L 500.52638, L500.54675, L500.92256 ####[facility] [id number] [place], [place] [address]Ww# [phone] Glucose [Mass/Vol] 303 mg/dL High 70-100 [facility] Comment on above: Order Comment: Campu s: MMinimal Draw: Y Result Comment: 70-1 00- Normal Fasting; 100-125 Impaired Fasting; greaterthan 126 on more than one result- Diabetes. ADA guidelines.Results may be falsely elevated after the administration ofSulfapyridine.Results may be falsely depressed after the administration ofSulfasalazine. Performed By: #### L 500.77409, L500.27437, L500.59914 ####[facility] [id number] [place], [place] [address]Be# [phone] Potassium [Moles/Vol] 4.4 mmol/L Normal 3.5-5.1 [facility] [place] Comment on above: Order Comment: Campu s: MMinimal Draw: Y Result Comment: Slig ht Hemolysis, Result may be affected. Performed By: #### L 500.49096, L500.52963, L500.91873 ####[facility] [id number] [place], [place] [address]Nf# [phone] Sodium [Moles/Vol] 141 mmol/L Normal 136-145 [facility] Comment on above: Order Comment: Campu s: MMinimal Draw: Y Performed By: #### L 500.39443, L500.45392, L500.86954 ####[facility] [id number] [place], [place] [address]Kf# [phone] Urea nitrogen [Mass/Vol] 16 mg/dL Normal 7-26 [facility] Comment on above: Order Comment: Campu s: MMinimal Draw: Y Performed By: #### L 500.13441, L500.86826, L500.72090 ####[facility] [id number] [place], [place] [address]Mv# [phone] Urea nitrogen/Creatinine [Mass ratio] 23 mg/mg Normal 15-24 [facility] Comment on above: Order Comment: Campu s: MMinimal Draw: Y Performed By: #### L 500.56967, L500.96722, L500.02921 ####[facility] [id number] [place], [place] [address]Mn# [phone] CBC W/DIFFon 06-03-2021 BASO ABS 0.00 K/CU MM Normal 0-0.2 [facility] Comment on above: Order Comment: Campu s: MMinimal Draw: Y Performed By: #### L 200.71023 ####[facility] [id number] [place], [place] [address]Ei# [phone] Basophils/100 WBC (Bld) 0.2 % Normal 0-2 [facility] [place] Comment on above: Order Comment: Campu s: MMinimal Draw: Y Performed By: #### L 200.09966 ####[facility] [id number] [place] [address]Ht# [phone] EOS ABS 0.00 K/CU MM Normal 0-0.5 [facility] Comment on above: Order Comment: Campu s: MMinimal Draw: Y Performed By: #### L 200.54827 ####[facility] [id number] [place] [address]Np# [phone] Eosinophils/100 WBC (Bld) 0.3 % Normal 0-5 [facility] Comment on above: Order Comment: Campu s: MMinimal Draw: Y Performed By: #### L 200.02979 ####[address] [address]Pb# [phone] Erythrocyte distribution width (RBC) [Ratio] 15.1 % High 11-14.5 [facility] Comment on above: Order Comment: Campu s: MMinimal Draw: Y Performed By: #### L 200.67884 ####[facility] [id number] [place] [address]Ei# [phone] Hematocrit (Bld) [Volume fraction] 29.3 % Low 35.0-47.0 [facility] Comment on above: Order Comment: Campu s: MMinimal Draw: Y Performed By: #### L 200.84696 ####[facility] [id number] [place] [address]Hq# [phone] Hemoglobin (Bld) [Mass/Vol] 9.4 g/dL Low 11.5-15.5 [facility] Comment on above: Order Comment: Campu s: MMinimal Draw: Y Result Comment: Repe ated and verified. Performed By: #### L 200.95500 ####[facility] [id number] [place] [address]Wx# [phone] IMMATR GRAN ABS 0.10 K/CU MM Normal Less than 2 [facility] [place] Comment on above: Order Comment: Campu s: MMinimal Draw: Y Performed By: #### L 200.15777 ####[facility] [id number] [place], [place] [address]Qj# [phone] IMMATURE GRAN % 0.8 % Normal Less than 2 [facility] Comment on above: Order Comment: Campu s: MMinimal Draw: Y Performed By: #### L 200.32281 ####[facility] [id number] [place], [place] [address]Ph# [phone] LYMPH ABS 2.90 K/CU MM Normal 0.9-4.4 [facility] Comment on above: Order Comment: Campu s: MMinimal Draw: Y Performed By: #### L 200.28851 ####[address] [address]Yh# [phone] Lymphocytes/100 WBC (Bld) 25.7 % Normal 20-40 [facility] Comment on above: Order Comment: Campu s: MMinimal Draw: Y Performed By: #### L 200.52676 ####[facility] [id number] [place], [place] [address]Ph# [phone] MCHC (RBC) [Mass/Vol] 32.1 g/dL Normal 32.0-36.0 [facility] [place] Comment on above: Order Comment: Campu s: MMinimal Draw: Y Performed By: #### L 200.89564 ####[facility] [id number] [place] [address]Kt# [phone] MCV (RBC) [Entitic vol] 87.5 fL Normal 80.0-99.0 [facility] Comment on above: Order Comment: Campu s: MMinimal Draw: Y Performed By: #### L 200.57741 ####[facility] [id number] [place] [address]Ai# [phone] MONO ABS 0.50 K/CU MM Normal 0.1-1.1 [facility] [place] Comment on above: Order Comment: Campu s: MMinimal Draw: Y Performed By: #### L 200.97250 ####[facility] [id number] [place], [place] [address]Kq# [phone] Monocytes/100 WBC (Bld) 4.3 % Normal 2-10 [facility] Comment on above: Order Comment: Campu s: MMinimal Draw: Y Performed By: #### L 200.07654 ####[facility] [id number] [place] [address] 140[address]Fe# [phone] NEUTROPHIL ABS 7.70 K/CU MM Normal 2.0-8.3 [facility] Comment on above: Order Comment: Campu s: MMinimal Draw: Y Performed By: #### L 200.60532 ####[facility] [id number] [place] [address]Se# [phone] Neutrophils/100 WBC (Bld) 68.7 % Normal 45-75 [facility] Comment on above: Order Comment: Campu s: MMinimal Draw: Y Performed By: #### L 200.16137 ####[facility] [id number] [place] [address]Zk# [phone] Nucleated RBC/100 WBC (Bld) [Ratio] 0.0 % Normal Less than 1 [facility] Comment on above: Order Comment: Campu s: MMinimal Draw: Y Performed By: #### L 200.41820 ####[facility] [id number] [place] [address] 214[address]Vd# [phone] Platelet mean volume (Bld) [Entitic vol] 11.6 fL Normal 9.4-12.4 [facility] Comment on above: Order Comment: Campu s: MMinimal Draw: Y Performed By: #### L 200.37774 ####[facility] [id number] [place], [place] [address]Pd# [phone] PLT 166 K/CU MM Normal 150-450 [facility] Comment on above: Order Comment: Campu s: MMinimal Draw: Y Performed By: #### L 200.67677 ####[facility] [id number] [place], [place] [address]As# [phone] RBC 3.35 M/CU MM Low 3.90-5.30 [facility] Comment on above: Order Comment: Campu s: MMinimal Draw: Y Performed By: #### L 200.37805 ####[facility] [id number] [place], [place] [address]Sk# [phone] WBC 11.3 K/CUMM High 4.5-11.0 [facility] Comment on above: Order Comment: Campu s: MMinimal Draw: Y Performed By: #### L 200.31525 ####[facility] [id number] [place], [place] [address]Cf# [phone] GFR ESTon 06-03-2021 IF AMER Greater than 60 Normal [facility] Comment on above: Order Comment: Campu s: MMinimal Draw: Y Performed By: #### L 500.42547, L500.62286, L500.37904 ####[facility] [id number] [place], [place] [address]Cz# [phone] IF non-AFR AMER Greater than 60 Normal [facility] Comment on above: Order Comment: Campu s: MMinimal Draw: Y Performed By: #### L 500.84389, L500.67438, L500.26264 ####[facility] [id number] [place], [place] [address]Hk# [phone] GLUCOSE METERon 06-03-2021 Glucose [Mass/Vol] 227 mg/dL High 70-115 [facility] Glucose [Mass/Vol] 182 mg/dL High 70-115 [facility] Glucose [Mass/Vol] 299 mg/dL High 70-115 [facility]MSon 06-03-2021 PROG IMS Normal [facility]ist Normal [facility] [place] PROG.ENDOon 06-03-2021 PROG.ENDO Normal [facility]ocrinology Normal [facility] [place] TSHon 06-03-2021 TSH 6.118 UIU/ML High 0.358-3.740 [facility] Comment on above: Order Comment: Campu s: MMinimal Draw: Y Result Comment: 3rd generation ultra sensitive TSH Performed By: #### L 500.72700, L500.74200, L500.26564 ####[facility] [id number] [place], [place] [address]Fo# [phone] CONS.ENDOon 06-02-2021 CONS.ENDO Normal [facility] CONSULTATION-ENDOCRINO LOGY Normal [facility] GLUCOSE METERon 06-02-2021 Glucose [Mass/Vol] 372 mg/dL High 70-115 [facility] Glucose [Mass/Vol] 255 mg/dL High 70-115 [facility] Glucose [Mass/Vol] 210 mg/dL High 70-115 [facility] Glucose [Mass/Vol] 205 mg/dL High 70-115 [facility] PR[facility] IMSon 06-02-2021 PROG IMS Normal [facility] [place] Progress Note-Hospitalist Normal [facility] [place] BMPon 06-01-2021 Anion gap [Moles/Vol] 23 mmol/L High 5-16 [facility] Comment on above: Order Comment: Campu s: M Performed By: #### L 500.72848, L500.28268 ####[facility] [id number] [place], [place] [address]Hf# [phone] Calcium [Mass/Vol] 9.4 mg/dL Normal 8.5-10.5 [facility] Comment on above: Order Comment: Campu s: M Result Comment: NOTE NEW NORMAL RANGE DUE TO REAGENT CHANGE Performed By: #### L 500.73104, L500.66407 ####[facility] [id number] [place], [place] [address]Gi# [phone] Chloride [Moles/Vol] 103 mmol/L Normal 98-107 [facility] Comment on above: Order Comment: Campu s: M Performed By: #### L 500.14829, L500.70974 ####[facility] [id number] [place], [place] [address]Lx# [phone] CO2 [Moles/Vol] 11.0 mmol/L Low 21-32 [facility] Comment on above: Order Comment: Benjiu s: M Result Comment: Delt a check reviewed Performed By: #### L 500.11596, L500.81917 ####[facility] [id number] [place], [place] [address]Eu# [phone] Creatinine [Mass/Vol] 0.71 mg/dL Normal 0.510-0.950 [facility] Comment on above: Order Comment: Benjiu s: M Result Comment: Cleopatra ents receiving either N-Acetylcysteine (NAC) orMetamizole prior to venipuncture, may have falsely depressedresults. Performed By: #### L 500.59825, L5.56840 ####[facility] [id number] [place], [place] [address]Ym# [phone] Glucose [Mass/Vol] 447 mg/dL High 70-100 [facility] Comment on above: Order Comment: Zach s: M Result Comment: 70-1 00- Normal Fasting; 100-125 Impaired Fasting; greaterthan 126 on more than one result- Diabetes. ADA guidelines.Results may be falsely elevated after the administration ofSulfapyridine.Results may be falsely depressed after the administration ofSulfasalazine. Performed By: #### L 500.63279, L5.88487 ####[facility] [id number] [place], [place] [address]Tk# [phone] Potassium [Moles/Vol] 5.2 mmol/L High 3.5-5.1 [facility] Comment on above: Order Comment: Benjiu s: M Result Comment: Slig ht Hemolysis, Result may be affected. Performed By: #### L 500.90029, L500.00876 ####[facility] [id number] [place], [place] [address]Dg# [phone] Sodium [Moles/Vol] 137 mmol/L Normal 136-145 [facility] Comment on above: Order Comment: Campu s: M Performed By: #### L 500.56965, L500.01382 ####[facility] [id number] [place], [place] [address]Mr# [phone] Urea nitrogen [Mass/Vol] 20 mg/dL Normal 7-26 [facility] Comment on above: Order Comment: Campu s: M Result Comment: Slig ht Hemolysis, Result may be affected. Performed By: #### L 500.87989, L500.82681 ####[facility] [id number] [place], [place] [address]Zi# [phone] Urea nitrogen/Creatinine [Mass ratio] 28 mg/mg High 15-24 [facility] Comment on above: Order Comment: Campu s: M Performed By: #### L 500.80551, L500.68773 ####[facility] [id number] [place] [address]Do# [phone] Stacie 06-01-2021 EMERGENCY PHYSICIAN REPORT This is a preliminary report only, as the practitioner review and authentication has not occurred. Normal [facility] ER Normal [facility] GFR ESTon 06-01-2021 IF AMER Greater than 60 [facility] Comment on above: Order Comment: Campu s: M Performed By: #### L 500.33052, L500.18770 ####[facility] [id number] [place] [address]Ku# [phone] IF non-AFR AMER Greater than 60 [facility] Comment on above: Order Comment: Campu s: M Performed By: #### L 500.03033, L500.94724 ####[facility] [id number] [place], [place] [address]Nk# [phone] GLUCOSE METERon 06-01-2021 Glucose [Mass/Vol] 384 mg/dL High 70-115 [facility] Glucose [Mass/Vol] 322 mg/dL High 70-115 [facility] Glucose [Mass/Vol] 550 mg/dL Critically high 70-115 [facility] GLUCOSE METER > 600 Critically high 70-115 [facility] Glucose [Mass/Vol] 450 mg/dL High 70-115 [facility] HP.IMS.ADMon 06-01-2021 Admission-H&P Normal [facility] HP.[facility].ADM Normal [facility] LACTIC ACIDon 06-01-2021 Lactate [Moles/Vol] 3.82 mmol/L High 0.40-2.00 [facility] Comment on above: Performed By: #### L 550.36692 ####[facility] [id number] [place], [place] [address]Fs# [phone] PROCAL Aon 06-01-2021 PROCAL A 2.89 NG/ML High 0-0.50 [facility] Comment on above: [...] results obtained fromthe [employer] platform vs the [employer] platform(previous).NOTE NEW NORMAL RANGE DUE TO REAGENT CHANGE Performed By: #### L 550.01910 ####[facility] EDCFGSBOVT9641 [place], [place] [address]Ek# [phone] PROG IMSon 06-01-2021 PROG IMS Normal [facility] Progress Note-Hospitalist Normal [facility] UR DRUG ABUSEon 06-01-2021 UR AMPH Negative Normal Xggjhd=7551 [facility] Comment on above: Performed By: #### L 600.93838 ####[facility] [id number] [place], [place] [address]Xm# [phone] UR JARON Negative Normal Laxotf=552 [facility] Comment on above: Performed By: #### L 600.38651 ####[facility] [id number] [place], [place] [address]Zx# [phone] UR TAMRA Negative Normal Vrjinq=080 [facility] Comment on above: Performed By: #### L 600.79878 ####[facility] [id number] [place] [address]Np# [phone] UR MONTY/THC Positive Normal Cutoff=50 [facility] Comment on above: Performed By: #### L 600.79469 ####[address] [address]Iu# [phone] UR ALISHA Negative Normal Ozcten=572 [facility] Comment on above: Performed By: #### L 600.54902 ####[facility] [id number] [place] [address]Ow# [phone] UR OPIAT Positive Normal Qhdifr=077 [facility] Comment on above: Performed By: #### L 600.67263 ####[facility] [id number] [place] [address]Fo# [phone] UR PCP Negative Normal Cutoff=25 [facility] Comment on above: Performed By: #### L 600.59801 ####[facility] [id number] [place] [address]Js# [phone] DRAB COMMENT Normal [facility] Comment on above: Result Comment: [employer] results are qualitative, providing apreliminary analytical result. A positive result for anassay should be confirmed by another nonimmunological,reference method. A negative result indicates that theassay material is either not present, or present at levelsbelow the cutoff threshold for the analytical method range(AMR) validation. Performed By: #### L 600.46969 ####[facility] [id number] [place], [place] [address]Cm# [phone] ABGPon 05-31-2021 ABG BE -8.6 MML/L Low -2.0-2.0 [facility] [place] Comment on above: Order Comment: Campu s: M Performed By: #### L 100.01365 ####[facility] [id number] [place], [place] [address]Xr# [phone] ABG COHBA 0.4 % Normal 0-10 [facility] [place] Comment on above: Order Comment: Campu s: M Performed By: #### L 100.38952 ####[facility] [id number] [place] [address]Zc# [phone] ABG MET 0.3 % Low 0.4-1.5 [facility] Comment on above: Order Comment: Campu s: M Performed By: #### L 100.25454 ####[facility] [id number] [place] [address]Lk# [phone] ABG O2 CAPACITY 17.9 mL/dL Normal [facility] [place] Comment on above: Order Comment: Campu s: M Performed By: #### L 100.86406 ####[facility] [id number] [place], [place] [address]Fi# [phone] ABG O2 CONTENT 17.2 mL/dL Normal 15.7-21.6 [facility] Comment on above: Order Comment: Campu s: M Performed By: #### L 100.65797 ####[facility] [id number] [place] [address]Xi# [phone] ABG O2HB SAT 93.9 % Normal 90-100 [facility] Comment on above: Order Comment: Campu s: M Performed By: #### L 100.04516 ####[facility] [id number] [place] [address]Zc# [phone] ABG PCO2 34.2 MMHG Low 35-45 [facility] Comment on above: Order Comment: Campu s: M Performed By: #### L 100.05608 ####[facility] [id number] [place], [place] [address]Vl# [phone] ABG PH 7.31 Low 7.35-7.45 [facility] Comment on above: Order Comment: Campu s: M Performed By: #### L 100.75177 ####[facility] [id number] [place], [place] [address]Bm# [phone] ABG PO2 85.7 MMHG Normal 80-100 [facility] Comment on above: Order Comment: Campu s: M Performed By: #### L 100.77132 ####[address] [address]Rb# [phone] ABG REDUCED HGB 5.4 % High 0-5 [facility] Comment on above: Order Comment: Campu s: M Performed By: #### L 100.36303 ####[facility] [id number] [place] [address]Wm# [phone] GEM TEST Positive Normal [facility] Comment on above: Order Comment: Campu s: M Performed By: #### L 100.57260 ####[address] [address]Lv# [phone] Body temperature 98.6 [degF] Normal [facility] Comment on above: Order Comment: Campu s: M Performed By: #### L 100.27652 ####[facility] [id number] [place], [place] [address]Sh# [phone] EQUIPMENT ROOM AIR Normal [facility] Comment on above: Order Comment: Campu s: M Performed By: #### L 100.58991 ####[facility] [id number] [place], [place] [address]Xl# [phone] FIO2 21 % Normal [facility] Comment on above: Order Comment: Campu s: M Performed By: #### L 100.08287 ####[facility] [id number] [place] [address] [place] [address]Pg# [phone] HCO3 (Bld) [Moles/Vol] 16.8 mmol/L Low 22-26 M [facility] Comment on above: Order Comment: Campu s: M Performed By: #### L 100.18956 ####[facility] [id number] [place] [address]Db# [phone] Hemoglobin (Bld) [Mass/Vol] 13.0 g/dL Normal 10-16 [facility] Comment on above: Order Comment: Campu s: M Performed By: #### L 100.00606 ####[address] [address]Zm# [phone] SAMPLE SITE L RADIAL Normal [facility] Comment on above: Order Comment: Campu s: M Performed By: #### L 100.53321 ####[address] [address]Tj# [phone] SAMPLE TYPE ARTERIAL Normal [facility] Comment on above: Order Comment: Campu s: M Performed By: #### L 100.43155 ####[facility] [id number] [place] [address]Pn# [phone] ABGPEGLAon 05-31-2021 ABG BE -10.1 MML/L Low -2.0-2.0 [facility] Comment on above: Order Comment: Campu s: M Performed By: #### L 100.54332 ####[facility] [id number] [place] [address]Ft# [phone] ABG COHBA 0.4 % Normal 0-10 [facility] Comment on above: Order Comment: Campu s: M Performed By: #### L 100.29320 ####[facility] [id number] [place] [address]Pm# [phone] ABG GLU 317.0 MG/DL High 60-80 [facility] Comment on above: Order Comment: Campu s: M Performed By: #### L 100.03239 ####[facility] [id number] [place], [place] [address]Tr# [phone] ABG MET 0.3 % Low 0.4-1.5 [facility] Comment on above: Order Comment: Benjiu s: M Performed By: #### L 100.10889 ####[facility] [id number] [place], [place] [address]If# [phone] ABG O2 CAPACITY 15.6 mL/dL Normal [facility] Comment on above: Order Comment: Campu s: M Performed By: #### L 100.38909 ####[address] [address]Wn# [phone] ABG O2 CONTENT 11.1 mL/dL Low 15.7-21.6 [facility] Comment on above: Order Comment: Campu s: M Performed By: #### L 100.31195 ####[facility] [id number] [place] [id number]# [phone] ABG O2HB SAT 69.7 % Critically low 90-100 [facility] Comment on above: Order Comment: Benjiu s: M Performed By: #### L 100.90957 ####[address] [address]Xy# [phone] ABG PCO2 19.0 MMHG Critically low 35-45 [facility] Comment on above: Order Comment: Campu s: M Result Comment: CRIT ICAL VALUE(S) VERIFIED AND HAND DELIVERED TO AND READBACK BY DR CORTES AT 1829 05/31/21 BY ADAM CHOE Performed By: #### L 100.14866 ####[facility] [id number] [place] [id number]# [phone] ABG PH 7.43 Normal 7.35-7.45 [facility] Comment on above: Order Comment: Campu s: M Performed By: #### L 100.30664 ####[facility] [id number] [place] [address] 14444Em# [phone] ABG PO2 37.4 MMHG Critically low 80-100 [facility] Comment on above: Order Comment: Campu s: M Performed By: #### L 100.33309 ####[facility] [id number] [place], [place] [address]Bw# [phone] ABG REDUCED HGB 29.6 % Critically high 0-5 [facility] Comment on above: Order Comment: Campu s: M Performed By: #### L 100.42198 ####[facility] [id number] [place] [address] 76533Jr# [phone] GEM TEST N/A Normal [facility] Comment on above: Order Comment: Campu s: M Performed By: #### L 100.76749 ####[address] [address]It# [phone] Body temperature 98.6 [degF] Normal [facility] Comment on above: Order Comment: Campu s: M Performed By: #### L 100.32353 ####[facility] [id number] [place] [address] 35035Mf# [phone] EQUIPMENT ROOM AIR Normal [facility] Comment on above: Order Comment: Campu s: M Performed By: #### L 100.46051 ####[facility] [id number] [place] [address] 48890Up# [phone] HCO3 (Bld) [Moles/Vol] 12.2 mmol/L Low 22-26 [facility] Comment on above: Order Comment: Campu s: M Performed By: #### L 100.87138 ####[facility] [id number] [place] [address] 62776Mw# [phone] Hemoglobin (Bld) [Mass/Vol] 11.3 g/dL Normal 10-16 [facility] Comment on above: Order Comment: Campu s: M Performed By: #### L 100.68670 ####[facility] [id number] [place] [address] 40180Yg# [phone] IONIZED CA 0.95 MMOL/L Low 1.13-1.32 [facility] Comment on above: Order Comment: Campu s: M Performed By: #### L 100.77044 ####[facility] YCCNMSYQMN2108 [place], [place] [address]Zg# [phone] LACTATE BLOOD 2.01 MMOL/L High 0.40-2.00 [facility] Comment on above: Order Comment: Campu s: M Performed By: #### L 100.11252 ####[facility] [id number] [place] [address] 24706Aq# [phone] Potassium [Moles/Vol] 2.7 mmol/L Critically low 3.5-5.0 [facility] Comment on above: Order Comment: Campu s: M Performed By: #### L 100.25169 ####[facility] [id number] [place], [place] [id number]# [phone] RESP. RATE 30 Normal [facility] Comment on above: Order Comment: Campu s: M Performed By: #### L 100.47107 ####[facility] [id number] [place] [address] 32288Ey# [phone] SAMPLE SITE R BRACHIAL Normal [facility] Comment on above: Order Comment: Campu s: M Performed By: #### L 100.68352 ####[facility] [id number] [place] [address] 09632Ad# [phone] SAMPLE TYPE ARTERIAL Normal [facility] Comment on above: Order Comment: Campu s: M Performed By: #### L 100.10393 ####[facility] [id number] [place] [address] 09889La# [phone] Sodium [Moles/Vol] 140 mmol/L Normal 136-148 [facility] Comment on above: Order Comment: Campu s: M Performed By: #### L 100.93356 ####[facility] [id number] [place] [address] 47983Vw# [phone] BMPon 05-31-2021 Anion gap [Moles/Vol] 16 mmol/L Normal 5-16 [facility] [place] Comment on above: Order Comment: Campu s: M Performed By: #### L 500.49484, L500.13192, L500.27982, L500.27306 ####[facility] QAWYAELLTB5771 [place], [place] [address]Cg# [phone] Calcium [Mass/Vol] 9.9 mg/dL Normal 8.5-10.5 [facility] Comment on above: Order Comment: Campu s: M Result Comment: NOTE NEW NORMAL RANGE DUE TO REAGENT CHANGE Performed By: #### L 500.66406, L500.43511, L500.67511, L500.56066 ####[facility] NGZAIDHFBD7093 [place], [place] [address]Fj# [phone] Chloride [Moles/Vol] 105 mmol/L Normal 98-107 [facility] Comment on above: Order Comment: Campu s: M Performed By: #### L 500.50808, L500.09864, L500.59259, L500.13972 ####[facility] LINTFNQMHA2599 [place], [place] [address]Ql# [phone] CO2 [Moles/Vol] 16.0 mmol/L Low 21-32 [facility] Comment on above: Order Comment: Campu s: M Performed By: #### L 500.54680, L500.04115, L500.71190, L500.92905 ####[facility] VRZPQYEWEQ4997 [place], [place] [address]Cw# [phone] Creatinine [Mass/Vol] 0.63 mg/dL Normal 0.510-0.950 [facility] Comment on above: Order Comment: Campu s: M Result Comment: Cleopatra ents receiving either N-Acetylcysteine (NAC) orMetamizole prior to venipuncture, may have falsely depressedresults. Performed By: #### L 500.57614, L500.85534, L500.62332, L500.24414 ####[facility] LARVXCIYKD7918 [place], [place] [address]Il# [phone] Glucose [Mass/Vol] 422 mg/dL High 70-100 [facility] [place] Comment on above: Order Comment: Campu s: M Result Comment: 70-1 00- Normal Fasting; 100-125 Impaired Fasting; greaterthan 126 on more than one result- Diabetes. ADA guidelines.Results may be falsely elevated after the administration ofSulfapyridine.Results may be falsely depressed after the administration ofSulfasalazine. Performed By: #### L 500.40422, L500.58962, L500.04888, L500.22553 ####[facility] PPWZBZRLDS2667 [place], [place] [address]Bb# [phone] Potassium [Moles/Vol] 4.4 mmol/L Normal 3.5-5.1 [facility] [place] Comment on above: Order Comment: Campu s: M Result Comment: Slig ht Hemolysis, Result may be affected. Performed By: #### L 500.87310, L500.66229, L500.82885, L500.63501 ####[facility] WNFJSLLEVE9767 [place], [place] [address]Yn# [phone] Sodium [Moles/Vol] 137 mmol/L Normal 136-145 [facility] Comment on above: Order Comment: Campu s: M Performed By: #### L 500.91071, L500.30975, L500.92127, L500.71610 ####[facility] [id number] [place], [place] [address]Su# [phone] Urea nitrogen [Mass/Vol] 17 mg/dL Normal 7-26 [facility] [place] Comment on above: Order Comment: Campu s: M Performed By: #### L 500.53226, L500.39922, L500.15296, L500.90686 ####[facility] FLRRJSWNKF2866 [place], [place] [address]Oa# [phone] Urea nitrogen/Creatinine [Mass ratio] 27 mg/mg High 15-24 [facility] [place] Comment on above: Order Comment: Campu s: M Performed By: #### L 500.59019, L500.69897, L500.22134, L500.40335 ####[facility] [id number] [place], [place] [address]Tw# [phone] CBC W/DIFFon 05-31-2021 BASO ABS 0.00 K/CU MM Normal 0-0.2 [facility] [place] Comment on above: Order Comment: Campu s: M Performed By: #### L 200.58658 ####[facility] [id number] [place], [place] [address]Ph# [phone] Basophils/100 WBC (Bld) 0.2 % Normal 0-2 [facility] [place] Comment on above: Order Comment: Campu s: M Performed By: #### L 200.41986 ####[facility] [id number] [place], [place] [address]Ph# [phone] EOS ABS 0.00 K/CU MM Normal 0-0.5 [facility] [place] Comment on above: Order Comment: Campu s: M Performed By: #### L 200.72199 ####[facility] [id number] [place] [address] 340[address]Gf# [phone] Eosinophils/100 WBC (Bld) 0.0 % Normal 0-5 [facility] [place] Comment on above: Order Comment: Campu s: M Performed By: #### L 200.77276 ####[facility] [id number] [place], [place] [address]Ph# [phone] Erythrocyte distribution width (RBC) [Ratio] 14.1 % Normal 11-14.5 [facility] Comment on above: Order Comment: Campu s: M Performed By: #### L 200.98275 ####[facility] [id number] [place] [address] 827[address]Jk# [phone] Hematocrit (Bld) [Volume fraction] 39.5 % Normal 35.0-47.0 [facility] [place] Comment on above: Order Comment: Campu s: M Performed By: #### L 200.13074 ####[facility] [id number] [place] [id number]# [phone] Hemoglobin (Bld) [Mass/Vol] 13.1 g/dL Normal 11.5-15.5 [facility] [place] Comment on above: Order Comment: Campu s: M Performed By: #### L 200.96282 ####[facility] [id number] [place], [place] [address]Ph# [phone] IMMATR GRAN ABS 0.20 K/CU MM Normal Less than 2 [facility] [place] Comment on above: Order Comment: Campu s: M Performed By: #### L 200.68943 ####[place] [address]Ph# [phone] IMMATURE GRAN % 0.8 % Normal Less than 2 [facility] [place] Comment on above: Order Comment: Campu s: M Performed By: #### L 200.72276 ####[facility] MKSYKVVOTA[address] [place], [place] [address]Ph# [phone] LYMPH ABS 1.10 K/CU MM Normal 0.9-4.4 [facility] Comment on above: Order Comment: Campu s: M Performed By: #### L 200.08411 ####[facility] [id number] [place], [place] [address]Ph# [phone] Lymphocytes/100 WBC (Bld) 4.7 % Low 20-40 [facility] Comment on above: Order Comment: Campu s: M Performed By: #### L 200.21558 ####[facility] COZUUCOLTL168[address] [place], [place] [address]Ph# [phone] MCHC (RBC) [Mass/Vol] 33.2 g/dL Normal 32.0-36.0 [facility] [place] Comment on above: Order Comment: Campu s: M Performed By: #### L 200.64874 ####[facility] YPVFDPORWQ0[address] [place], [place] [address]Ph# [phone] MCV (RBC) [Entitic vol] 84.9 fL Normal 80.0-99.0 [facility] [place] Comment on above: Order Comment: Campu s: M Performed By: #### L 200.95173 ####[facility] HBDWPHIOAI5049 [place], [place] [address]Ko# [phone] MONO ABS 0.40 K/CU MM Normal 0.1-1.1 [facility] [place] Comment on above: Order Comment: Campu s: M Performed By: #### L 200.57544 ####[facility] [id number] [place], [place] [address]Ph# [phone] Monocytes/100 WBC (Bld) 1.8 % Low 2-10 [facility] Comment on above: Order Comment: Campu s: M Performed By: #### L 200.27509 ####[facility] [id number] [place], [place] [address]Ph# [phone] NEUTROPHIL ABS 20.90 K/CU MM High 2.0-8.3 [facility] [place] Comment on above: Order Comment: Campu s: M Performed By: #### L 200.13807 ####[facility] [id number] [place] [address] 20531Ud# [phone] Neutrophils/100 WBC (Bld) 92.5 % High 45-75 [facility] Comment on above: Order Comment: Campu s: M Performed By: #### L 200.52141 ####[facility] [id number] [place], [place] [address]Ph# [phone] Nucleated RBC/100 WBC (Bld) [Ratio] 0.0 % Normal Less than 1 [facility] Comment on above: Order Comment: Campu s: M Performed By: #### L 200.42988 ####[facility] [id number] [place] [address] 64731Jo# [phone] Platelet mean volume (Bld) [Entitic vol] 12.4 fL Normal 9.4-12.4 [facility] Comment on above: Order Comment: Campu s: M Performed By: #### L 200.92451 ####[facility] GVWPNGKJUH2186 [place], [place] [address]Dx# [phone] PLT 211 K/CU MM Normal 150-450 [facility] Comment on above: Order Comment: Campu s: M Performed By: #### L 200.34455 ####[facility] AFYHJDDWKY7899 [place], [place] [address]Nh# [phone] RBC 4.65 M/CU MM Normal 3.90-5.30 [facility] Comment on above: Order Comment: Campu s: M Performed By: #### L 200.80315 ####[facility] ZWXGCAEAUM8494 [place], [place] [address]Es# [phone] WBC 22.6 K/CUMM High 4.5-11.0 [facility] Comment on above: Order Comment: Campu s: M Performed By: #### L 200.81767 ####[facility] [id number] [place] [address]44[address]Xq# [phone] [address] ABD/PEL W IV CONTRAST ONL Yon 05-31-2021 CT ABD/PEL W IV CONTRAST ONLY Normal [facility] [place] GFR ESTon 05-31-2021 IF AMER Greater than 60 Normal [facility] Comment on above: Order Comment: Campu s: M Performed By: #### L 500.23029, L500.90994, L500.12533, L500.06519 ####[facility] [id number] [place], [place] [address]Zf# [phone] IF non-AFR AMER Greater than 60 Normal [facility] Comment on above: Order Comment: Campu s: M Performed By: #### L 500.95532, L500.04410, L500.98180, L500.86248 ####[facility] TOWOCFYFMU9334 [place], [place] [address]Sr# [phone] GLUCOSE METERon 05-31-2021 Glucose [Mass/Vol] 405 mg/dL High 70-115 [facility] LACTATE BLOODon 05-31-2021 LACTATE BLOOD 3.32 MMOL/L High 0.40-2.00 [facility] Comment on above: Order Comment: Campu s: M Performed By: #### L 550.99450 ####[facility] [id number] [place], [place] [address]Eq# [phone] LIPASEon 05-31-2021 Lipase [Catalytic activity/Vol] 18 U/L Normal 12-60 [facility] Comment on above: Order Comment: Campu s: M Result Comment: NOTE NEW NORMAL RANGE DUE TO REAGENT CHANGE Performed By: #### L 500.98181, L500.15356, L500.89739, L500.17506 ####[facility] BHQEBZLCRV5524 [place], [place] [address]Da# [phone] LIVERon 05-31-2021 Albumin [Mass/Vol] 4.3 g/dL Normal 3.2-5.0 [facility] Comment on above: Order Comment: Campu s: M Performed By: #### L 500.86707, L500.49144, L500.27154, L500.11170 ####[facility] [id number] [place], [place] [address]Cc# [phone] Albumin/Globulin [Mass ratio] 1.4 {ratio} Normal 0.8-2.0 [facility] Comment on above: Order Comment: Campu s: M Performed By: #### L 500.87459, L500.44208, L500.63392, L500.47298 ####[facility] PVMZKJMSLR8413 [place], [place] [address]Zm# [phone] ALK PHOS 89 U/L Normal 45-117 [facility] Comment on above: Order Comment: Campu s: M Performed By: #### L 500.17780, L500.18593, L500.53810, L500.62375 ####[facility] [id number] [place], [place] [address]Sq# [phone] ALT [Catalytic activity/Vol] 11 U/L Low 13-61 [facility] Comment on above: Order Comment: Campu s: M Result Comment: RESU LTS MAY BE FALSELY DEPRESSED AFTER THE ADMINISTRATION OFSULFASALAZINE AND/OR SULFAPYRIDINE. Performed By: #### L 500.46516, L500.49853, L500.09634, L500.97321 ####[facility] NERKVUJLHQ1735 [place], [place] [address]Yo# [phone] AST [Catalytic activity/Vol] 16 U/L Normal 8-34 [facility] Comment on above: Order Comment: Campu s: M Result Comment: RESU LTS MAY BE FALSELY DEPRESSED AFTER THE ADMINISTRATION OFSULFASALAZINE AND/OR SULFAPYRIDINE. Performed By: #### L 500.96905, L500.36127, L500.21134, L500.88701 ####[facility] [id number] [place] [address] 356[address]Ty# [phone] BILI DIRECT 0.3 MG/DL Normal 0.00-0.36 [facility] Comment on above: Order Comment: Campu s: M Result Comment: NOTE NEW NORMAL RANGE DUE TO REAGENT CHANGE Performed By: #### L 500.20177, L500.16270, L500.10974, L500.45829 ####[facility] GZUJLVATVA0610 [place], [place] [address]Fn# [phone] BILI TOTAL 1.00 MG/DL Normal 0.2-1.0 [facility] Comment on above: Order Comment: Campu s: M Performed By: #### L 500.94854, L500.34357, L500.89425, L500.55225 ####[facility] NCGMKNADVG6787 [place], [place] [address]Sl# [phone] Globulin (S) [Mass/Vol] 3.0 g/dL Normal 2.2-4.2 [facility] Comment on above: Order Comment: Campu s: M Performed By: #### L 500.99080, L500.47349, L500.97348, L500.36248 ####[facility] CWGWPXBMGA1277 [place], [place] [address]Pp# [phone] Protein [Mass/Vol] 7.3 g/dL Normal 6.0-8.5 [facility] Comment on above: Order Comment: Campu s: M Performed By: #### L 500.00839, L500.11554, L500.38207, L500.66054 ####[facility] TGVAPZDYCZ2349 [place], [place] [address]Aw# [phone] PORTABLE CHESTon 05-31-2021 PORTABLE CHEST Normal [facility] [id number] 05-31-2021 SARS-CoV-2 (COVID-19) RNA DANIEL+probe Ql (Unsp spec) Negative Invalid Interpretation Code Negative [facility] Comment on above: Order Comment: Campu s: M Result Comment: RESU LTS CALLED TO ALONZO ROSALES/EDAT 205305/31/21 BY JHOANA PALMERNegative results do not preclude SARS-CoV-2 infection andshould not be used as the sole basis for treatment or otherpatient management decisions. Negative results must becombined with clinical observation, patient history, andepidemiological information.This test was performed by PCR. Performed By: #### L 770.72865 ####[facility] [id number] [place], [place] [address]Oq# [phone] UA COMPLETEon 05-31-2021 Color (U) Straw Normal [facility] Comment on above: Order Comment: Campu s: M Performed By: #### L 600.66946 ####[facility] [id number] [place], [place] [address]Hu# [phone] Glucose (U) [Mass/Vol] 500 mg/dL Normal NORMAL [facility] Comment on above: Order Comment: Campu s: M Performed By: #### L 600.42200 ####[facility] AHNQUVHYYY6594 [place], [place] [address]Sc# [phone] UA APPEARANCE Clear Normal CLEAR [facility] Comment on above: Order Comment: Campu s: M Performed By: #### L 600.49027 ####[facility] [id number] [place], [place] [address]Qw# [phone] UA BILIRUBIN Negative Normal NEGATIVE [facility] Comment on above: Order Comment: Campu s: M Performed By: #### L 600.94112 ####[facility] [id number] [place], [place] [address]Kf# [phone] UA BLOOD Negative Normal NEGATIVE [facility] Comment on above: Order Comment: Campu s: M Performed By: #### L 600.23128 ####[facility] [id number] [place] [address] 884[address]Fx# [phone] UA KETONE 80 Normal NEGATIVE [facility] Comment on above: Order Comment: Campu s: M Performed By: #### L 600.36290 ####[facility] [id number] [place] [address] 85[address]Dd# [phone] UA LK ESTERASE Negative Normal NEGATIVE [facility] Comment on above: Order Comment: Campu s: M Performed By: #### L 600.92285 ####[facility] [id number] [place] [address]Xf# [phone] UA NITRITE Negative Normal NEGATIVE [facility] Comment on above: Order Comment: Campu s: M Performed By: #### L 600.72369 ####[facility] [id number] [place] [address]Aq# [phone] UA PH 6.0 Normal 5-6 [facility] Comment on above: Order Comment: Campu s: M Performed By: #### L 600.59148 ####[facility] [id number] [place] [address]Gi# [phone] UA PROTEIN Negative Normal NEGATIVE [facility] Comment on above: Order Comment: Campu s: M Performed By: #### L 600.97544 ####[facility] [id number] [place] [address]Od# [phone] UA SPEC GRAV 1.030 Normal 1.005-1.030 [facility] Comment on above: Order Comment: Campu s: M Performed By: #### L 600.27312 ####[facility] [id number] [place], [place] [address]At# [phone] UA UROBILINOGEN Negative Normal NORMAL [facility] Comment on above: Order Comment: Campu s: M Performed By: #### L 600.36214 ####[facility] [id number] [place] [address] 776[address]Ql# [phone] BMPon 04-15-2021 Anion gap [Moles/Vol] 14 mmol/L Normal 5-16 [facility] Comment on above: Order Comment: Campu s: M Performed By: #### L 500.47267, L500.26352, L500.83316, L500.26832 ####[facility] [id number] [place], [place] [address]Af# [phone] Calcium [Mass/Vol] 9.9 mg/dL Normal 8.5-10.5 [facility] Comment on above: Order Comment: Campu s: M Result Comment: NOTE NEW NORMAL RANGE DUE TO REAGENT CHANGE Performed By: #### L 500.21095, L500.69624, L500.28268, L500.50475 ####[facility] [id number] [place], [place] [address]Tu# [phone] Chloride [Moles/Vol] 96 mmol/L Low 98-107 [facility] Comment on above: Order Comment: Campu s: M Performed By: #### L 500.28450, L500.44297, L500.00191, L500.88539 ####[facility] [id number] [place], [place] [address]Fh# [phone] CO2 [Moles/Vol] 22.0 mmol/L Normal - [facility] Comment on above: Order Comment: Campu s: M Performed By: #### L 500.28845, L500.48818, L500.15952, L500.92739 ####[facility] XKWFSXIXQO7193 [place], [place] [address]Om# [phone] Creatinine [Mass/Vol] 0.68 mg/dL Normal 0.510-0.950 [facility] Comment on above: Order Comment: Zach s: M Result Comment: Cleopatra ents receiving either N-Acetylcysteine (NAC) orMetamizole prior to venipuncture, may have falsely depressedresults. Performed By: #### L 500.92405, L500.04260, L500.52460, L500.05413 ####[facility] [id number] [place], [place] [address]Ie# [phone] Glucose [Mass/Vol] 306 mg/dL High 70-100 [facility] Comment on above: Order Comment: Zach s: M Result Comment: 70-1 00- Normal Fasting; 100-125 Impaired Fasting; greaterthan 126 on more than one result- Diabetes. ADA guidelines.Results may be falsely elevated after the administration ofSulfapyridine.Results may be falsely depressed after the administration ofSulfasalazine. Performed By: #### L 500.45361, L500.37436, L500.42570, L500.04860 ####[facility] [id number] [place], [place] [address]Wi# [phone] Potassium [Moles/Vol] 3.3 mmol/L Low 3.5-5.1 [facility] Comment on above: Order Comment: Zach s: M Performed By: #### L 500.79335, L500.28710, L500.15454, L500.86796 ####[facility] [id number] [place], [place] [address]Nt# [phone] Sodium [Moles/Vol] 133 mmol/L Low 136-145 [facility] Comment on above: Order Comment: Zach s: M Performed By: #### L 500.30344, L500.24322, L500.68197, L500.82057 ####[facility] [id number] [place], [place] [address]Yr# [phone] Urea nitrogen [Mass/Vol] 21 mg/dL Normal 7-26 [facility] Comment on above: Order Comment: Campu s: M Performed By: #### L 500.72975, L500.21181, L500.30631, L500.79502 ####[facility] [id number] [place], [place] [address]Jm# [phone] Urea nitrogen/Creatinine [Mass ratio] 31 mg/mg High 15-24 [facility] Comment on above: Order Comment: Campu s: M Performed By: #### L 500.99170, L500.00513, L500.15701, L500.99919 ####[facility] [id number] [place], [place] [address]Ar# [phone] Stacie 04-15-2021 EMERGENCY PHYSICIAN REPORT This is a preliminary report only, as the practitioner review and authentication has not occurred. [facility] EMERGENCY PHYSICIAN REPORT This is a preliminary report only, as the practitioner review and authentication has not occurred. [facility] GFR ESTon 04-15-2021 IF AMER Greater than 60 [facility] Comment on above: Order Comment: Campu s: M Performed By: #### L 500.87265, L500.35811, L500.44107, L500.84260 ####[facility] [id number] [place], [place] [address]Gp# [phone] IF non-AFR AMER Greater than 60 [facility] Comment on above: Order Comment: Campu s: M Performed By: #### L 500.56558, L500.18729, L500.51513, L500.45272 ####[facility] [id number] [place], [place] [address]Ki# [phone] GLUCOSE METERon 04-15-2021 Glucose [Mass/Vol] 305 mg/dL High 70-115 [facility] Glucose [Mass/Vol] 197 mg/dL High 70-115 [facility] LACTATE BLOODon 04-15-2021 LACTATE BLOOD 2.16 MMOL/L High 0.40-2.00 [facility] Comment on above: Order Comment: Campu s: M Performed By: #### L 550.79518 ####[facility] [id number] [place], [place] [address]Np# [phone] LIPASEon 04-15-2021 Lipase [Catalytic activity/Vol] 19 U/L Normal 12-60 [facility] Comment on above: Order Comment: Campu s: M Result Comment: NOTE NEW NORMAL RANGE DUE TO REAGENT CHANGE Performed By: #### L 500.95903, L500.61012, L500.59879, L500.57771 ####[facility] [id number] [place], [place] [address]Bk# [phone] LIVERon 04-15-2021 Albumin [Mass/Vol] 4.2 g/dL Normal 3.2-5.0 [facility] Comment on above: Order Comment: Campu s: M Performed By: #### L 500.59949, L500.75500, L500.06894, L500.97174 ####[facility] [id number] [place], [place] [address]Xk# [phone] Albumin/Globulin [Mass ratio] 1.3 {ratio} Normal 0.8-2.0 [facility] Comment on above: Order Comment: Campu s: M Performed By: #### L 500.19225, L500.23857, L500.07023, L500.61705 ####[facility] [id number] [place], [place] [address]Zh# [phone] ALK PHOS 102 U/L Normal 45-117 [facility] Comment on above: Order Comment: Campu s: M Performed By: #### L 500.93305, L500.25968, L500.50485, L500.99064 ####[facility] [id number] [place], [place] [address]Vj# [phone] ALT [Catalytic activity/Vol] 11 U/L Low 13-61 [facility] Comment on above: Order Comment: Campu s: M Result Comment: RESU LTS MAY BE FALSELY DEPRESSED AFTER THE ADMINISTRATION OFSULFASALAZINE AND/OR SULFAPYRIDINE. Performed By: #### L 500.90354, L500.01844, L500.62689, L500.22226 ####[facility] [id number] [place], [place] [address]Iy# [phone] AST [Catalytic activity/Vol] 13 U/L Normal 8-34 [facility] Comment on above: Order Comment: Campu s: M Result Comment: RESU LTS MAY BE FALSELY DEPRESSED AFTER THE ADMINISTRATION OFSULFASALAZINE AND/OR SULFAPYRIDINE. Performed By: #### L 500.97644, L500.09422, L500.76587, L500.77823 ####[facility] [id number] [place], [place] [address]Ws# [phone] BILI DIRECT 0.3 MG/DL Normal 0.00-0.36 [facility] Comment on above: Order Comment: Campu s: M Result Comment: NOTE NEW NORMAL RANGE DUE TO REAGENT CHANGE Performed By: #### L 500.73394, L500.06493, L500.52327, L500.96863 ####[facility] [id number] [place], [place] [address]Mu# [phone] BILI TOTAL 1.10 MG/DL High 0.2-1.0 [facility] Comment on above: Order Comment: Campu s: M Performed By: #### L 500.06749, L500.50817, L500.73559, L500.74724 ####[facility] [id number] [place], [place] [address]Rv# [phone] Globulin (S) [Mass/Vol] 3.3 g/dL Normal 2.2-4.2 [facility] Comment on above: Order Comment: Campu s: M Performed By: #### L 500.25275, L500.57995, L500.84098, L500.96184 ####[facility] [id number] [place], [place] [address]Kn# [phone] Protein [Mass/Vol] 7.5 g/dL Normal 6.0-8.5 [facility] [place] Comment on above: Order Comment: Campu s: M Performed By: #### L 500.90436, L500.16662, L500.50536, L500.44827 ####[facility] [id number] [place], [place] [address]Ut# [phone] UA COMPLETEon 04-15-2021 Color (U) Yellow Normal [facility] Comment on above: Order Comment: Campu s: M Performed By: #### L 600.23858 ####[address] [address]Lu# [phone] Glucose (U) [Mass/Vol] 500 mg/dL Normal NORMAL [facility] [place] Comment on above: Order Comment: Campu s: M Performed By: #### L 600.55684 ####[facility] [id number] [place] [address]Mc# [phone] Mucus Ql (Urine sed) TRACE Normal NEGATIVE [facility] Comment on above: Order Comment: Campu s: M Performed By: #### L 600.63832 ####[facility] [id number] [place], [place] [address]Na# [phone] SQUAMOUS EPIS 2 EPI/HPF Normal 0-5 [facility] Comment on above: Order Comment: Campu s: M Performed By: #### L 600.50107 ####[facility] [id number] [place] [address]Oi# [phone] UA APPEARANCE Clear Normal CLEAR [facility] Comment on above: Order Comment: Campu s: M Performed By: #### L 600.57055 ####[facility] [id number] [place], [place] [address]Tc# [phone] UA BACTERIA TRACE Normal NONE [facility] Comment on above: Order Comment: Campu s: M Performed By: #### L 600.71956 ####[facility] [id number] [place], [place] [address]Qb# [phone] UA BILIRUBIN Negative Normal NEGATIVE [facility] Comment on above: Order Comment: Campu s: M Performed By: #### L 600.45913 ####[facility] [id number] [place], [place] [address]Td# [phone] UA BLOOD Negative Normal NEGATIVE [facility] Comment on above: Order Comment: Campu s: M Performed By: #### L 600.09057 ####[facility] [id number] [place] [address]Kq# [phone] UA KETONE 80 Normal NEGATIVE [facility] Comment on above: Order Comment: Campu s: M Performed By: #### L 600.34138 ####[facility] [id number] [place] [address]Mm# [phone] UA LK ESTERASE Negative Normal NEGATIVE [facility] Comment on above: Order Comment: Campu s: M Performed By: #### L 600.80138 ####[facility] [id number] [place] [address]Ph# [phone] UA NITRITE Negative Normal NEGATIVE [facility] Comment on above: Order Comment: Campu s: M Performed By: #### L 600.01958 ####[facility] [id number] [place] [address]Ts# [phone] UA PH 6.0 Normal 5-6 [facility] Comment on above: Order Comment: Campu s: M Performed By: #### L 600.94896 ####[facility] [id number] [place] [address]Rz# [phone] UA PROTEIN 30 Normal NEGATIVE [facility] Comment on above: Order Comment: Campu s: M Performed By: #### L 600.44103 ####[facility] [id number] [place] [address]Js# [phone] UA RBC 1 RBC/HPF Normal 0-3 [facility] Comment on above: Order Comment: Campu s: M Performed By: #### L 600.87597 ####[facility] [id number] [place], [place] [address]Xv# [phone] UA SPEC GRAV 1.017 Normal 1.005-1.030 [facility] Comment on above: Order Comment: Campu s: M Performed By: #### L 600.08886 ####[facility] [id number] [place], [place] [address]Sh# [phone] UA UROBILINOGEN Negative Normal NORMAL [facility] Comment on above: Order Comment: Campu s: M Performed By: #### L 600.76164 ####[facility] [id number] [place] [address]Ef# [phone] UA WBC 6 WBC/HPF High 0-5 [facility] Comment on above: Order Comment: Campu s: M Performed By: #### L 600.61554 ####[facility] [id number] [place] [address]Af# [phone] BMPon 03-17-2021 Anion gap [Moles/Vol] 16 mmol/L Normal 5-16 [facility] Comment on above: Order Comment: Campu s: M Performed By: #### L 500.48473, L500.40484 ####[facility] [id number] [place], [place] [address]Se# [phone] Calcium [Mass/Vol] 10.0 mg/dL Normal 8.5-10.5 [facility] Comment on above: Order Comment: Campu s: M Result Comment: NOTE NEW NORMAL RANGE DUE TO REAGENT CHANGE Performed By: #### L 500.33107, L500.39610 ####[facility] [id number] [place], [place] [address]Wr# [phone] Chloride [Moles/Vol] 102 mmol/L Normal 98-107 [facility] Comment on above: Order Comment: Campu s: M Performed By: #### L 500.57579, L500.80889 ####[facility] [id number] [place] [address]Jd# [phone] CO2 [Moles/Vol] 16.0 mmol/L Low 21-32 [facility] Comment on above: Order Comment: Benjiu s: M Performed By: #### L 500.79280, L500.27068 ####[facility] [id number] [place], [place] [address]Mg# [phone] Creatinine [Mass/Vol] 0.71 mg/dL Normal 0.510-0.950 [facility] [place] Comment on above: Order Comment: Campu s: M Result Comment: Cleopatra ents receiving either N-Acetylcysteine (NAC) orMetamizole prior to venipuncture, may have falsely depressedresults. Performed By: #### L 500.28436, L500.06378 ####[place] [address] [place], [place] [address]Fi# [phone] Glucose [Mass/Vol] 418 mg/dL High 70-100 [facility] Comment on above: Order Comment: Campu s: M Result Comment: 70-1 00- Normal Fasting; 100-125 Impaired Fasting; greaterthan 126 on more than one result- Diabetes. ADA guidelines.Results may be falsely elevated after the administration ofSulfapyridine.Results may be falsely depressed after the administration ofSulfasalazine. Performed By: #### L 500.89887, L500.67469 ####[facility] [id number] [place], [place] [address]Wl# [phone] Potassium [Moles/Vol] 4.2 mmol/L Normal 3.5-5.1 [facility] Comment on above: Order Comment: Campu s: M Result Comment: Slig ht Hemolysis, Result may be affected. Performed By: #### L 500.25960, L500.32026 ####[facility] [id number] [place], [place] [address]Gl# [phone] Sodium [Moles/Vol] 134 mmol/L Low 136-145 [facility] Comment on above: Order Comment: Benjiu s: M Performed By: #### L 500.38888, L500.93865 ####[facility] [id number] [place], [place] [address]Ks# [phone] Urea nitrogen [Mass/Vol] 25 mg/dL Normal 7-26 [facility] Comment on above: Order Comment: Campu s: M Performed By: #### L 500.50093, L500.32612 ####[facility] [id number] [place] [address]Ud# [phone] Urea nitrogen/Creatinine [Mass ratio] 35 mg/mg High 15-24 [facility] Comment on above: Order Comment: Campu s: M Performed By: #### L 500.29412, L500.01408 ####[address] [address]Xc# [phone] CBC W/DIFFon 03-17-2021 BASO ABS 0.00 K/CU MM Normal 0-0.2 [facility] Comment on above: Order Comment: Campu s: M Performed By: #### L 200.63483 ####[facility] [id number] [place] [address]Xu# [phone] Basophils/100 WBC (Bld) 0.1 % Normal 0-2 [facility] Comment on above: Order Comment: Campu s: M Performed By: #### L 200.29300 ####[facility] [id number] [place] [address] 839[address]Hz# [phone] EOS ABS 0.00 K/CU MM Normal 0-0.5 [facility] Comment on above: Order Comment: Campu s: M Performed By: #### L 200.65450 ####[facility] [id number] [place] [address]Xw# [phone] Eosinophils/100 WBC (Bld) 0.0 % Normal 0-5 [facility] Comment on above: Order Comment: Campu s: M Performed By: #### L 200.98185 ####[facility] [id number] [place] [address]Zp# [phone] Erythrocyte distribution width (RBC) [Ratio] 14.6 % High 11-14.5 [facility] Comment on above: Order Comment: Campu s: M Performed By: #### L 200.07449 ####[facility] [id number] [place], [place] [address]Vv# [phone] Hematocrit (Bld) [Volume fraction] 37.2 % Normal 35.0-47.0 [facility] Comment on above: Order Comment: Campu s: M Performed By: #### L 200.67221 ####[facility] [id number] [place] [address] 923[address]Th# [phone] Hemoglobin (Bld) [Mass/Vol] 12.4 g/dL Normal 11.5-15.5 [facility] Comment on above: Order Comment: Campu s: M Performed By: #### L 200.26675 ####[facility] [id number] [place], [place] [address]Ph# [phone] IMMATR GRAN ABS 0.10 K/CU MM Normal Less than 2 [facility] Comment on above: Order Comment: Campu s: M Performed By: #### L 200.10879 ####[facility] [id number] [place] [address] 77[address]Hq# [phone] IMMATURE GRAN % 0.8 % Normal Less than 2 [facility] Comment on above: Order Comment: Campu s: M Performed By: #### L 200.65745 ####[facility] [id number] [place] [address] 119[address]Mq# [phone] LYMPH ABS 0.80 K/CU MM Low 0.9-4.4 [facility] Comment on above: Order Comment: Campu s: M Performed By: #### L 200.81287 ####[facility] [id number] [place] [address] 78[address]Eg# [phone] Lymphocytes/100 WBC (Bld) 4.5 % Low 20-40 [facility] Comment on above: Order Comment: Campu s: M Performed By: #### L 200.51462 ####[facility] [id number] [place], [place] [address]Ff# [phone] MCHC (RBC) [Mass/Vol] 33.3 g/dL Normal 32.0-36.0 [facility] [place] Comment on above: Order Comment: Campu s: M Performed By: #### L 200.09173 ####[facility] [id number] [place] [address] 08[address]Ue# [phone] MCV (RBC) [Entitic vol] 83.2 fL Normal 80.0-99.0 [facility] Comment on above: Order Comment: Campu s: M Performed By: #### L 200.60877 ####[address] [address]Zj# [phone] MONO ABS 0.30 K/CU MM Normal 0.1-1.1 [facility] Comment on above: Order Comment: Campu s: M Performed By: #### L 200.69231 ####[facility] [id number] [place] [address] 817[address]Jc# [phone] Monocytes/100 WBC (Bld) 1.7 % Low 2-10 [facility] Comment on above: Order Comment: Campu s: M Performed By: #### L 200.79102 ####[facility] [id number] [place] [address]Vd# [phone] NEUTROPHIL ABS 16.70 K/CU MM High 2.0-8.3 [facility] Comment on above: Order Comment: Campu s: M Performed By: #### L 200.68532 ####[facility] [id number] [place] [address] 475[address]Ad# [phone] Neutrophils/100 WBC (Bld) 92.9 % High 45-75 [facility] Comment on above: Order Comment: Campu s: M Performed By: #### L 200.88309 ####[facility] [id number] [place], [place] [address]Ph# [phone] Nucleated RBC/100 WBC (Bld) [Ratio] 0.0 % Normal Less than 1 [facility] Comment on above: Order Comment: Campu s: M Performed By: #### L 200.42301 ####[facility] [id number] [place], [place] [address]Az# [phone] Platelet mean volume (Bld) [Entitic vol] 12.9 fL High 9.4-12.4 [facility] Comment on above: Order Comment: Campu s: M Performed By: #### L 200.14448 ####[facility] [id number] [place], [place] [address]Ft# [phone] PLT 181 K/CU MM Normal 150-450 [facility] Comment on above: Order Comment: Campu s: M Performed By: #### L 200.14447 ####[facility] [id number] [place] [address]Aj# [phone] RBC 4.47 M/CU MM Normal 3.90-5.30 [facility] Comment on above: Order Comment: Campu s: M Performed By: #### L 200.11732 ####[facility] [id number] [place], [place] [address]Wd# [phone] WBC 17.9 K/CUMM High 4.5-11.0 [facility] Comment on above: Order Comment: Campu s: M Performed By: #### L 200.70936 ####[facility] [id number] [place] [address]Sl# [phone] Stacie 03-17-2021 EMERGENCY PHYSICIAN REPORT This is a preliminary report only, as the practitioner review and authentication has not occurred. Normal [facility] ER [facility] EMERGENCY PHYSICIAN REPORT This is a preliminary report only, as the practitioner review and authentication has not occurred. Normal [facility] G[facility]on 03-17-2021 IF AMER Greater than 60 [facility] Comment on above: Order Comment: Campu s: M Performed By: #### L 500.98416, L500.43323 ####[facility] [id number] [place], [place] [address]Di# [phone] IF non-AFR AMER Greater than 60 Normal [facility] Comment on above: Order Comment: Campu s: M Performed By: #### L 500.96787, L500.78328 ####[facility] [id number] [place], [place] [address]He# [phone] GLUCOSE METERon 03-17-2021 Glucose [Mass/Vol] 333 mg/dL High 70-115 [facility] [place] Glucose [Mass/Vol] 360 mg/dL High 70-115 [facility] VBG PHon 03-17-2021 VBG PH 7.40 MMHG Normal 7.31-7.41 [facility] Comment on above: Order Comment: Benjiu s: M Performed By: #### L 100.42564 ####[facility] [id number] [place], [place] [address]Kn# [phone] A1C Hgbon 02-24-2017 Hemoglobin A1c/Hemoglobin.total mass fraction (Bld) 10.8 % High 4.0-6.0 [facility] Comment on above: Performed By: #### G FR ####[address] [address] Basic Metabolic Panelon 01-28 BUN/Creatinine Ratio 21.4 mg/mg Normal 10.0-22.0 [facility] Comment on above: Order Comment: CBN Performed By: #### G FR ####[place] [address] [place] [address] Creatinine 0.56 mg/dL Normal 0.50-1.20 [facility] Comment on above: Order Comment: CBN Performed By: #### G FR ####[address] [address] Calcium 7.8 mg/dL Low 8.4-10.1 [facility] Comment on above: Order Comment: CBN Performed By: #### G FR ####[facility], [address] [place] [address] Chloride 107 mmol/L Normal 98-110 [facility] Comment on above: Order Comment: CBN Performed By: #### G FR ####[facility], [address] [place] [address] Electrolyte Balance 10.0 mEq/L Normal 4.0-15.0 [facility] Comment on above: Order Comment: CBN Performed By: #### G FR ####[facility], [address] [place] [address] Sodium 138 mmol/L Normal 136-145 [facility] Comment on above: Order Comment: CBN Performed By: #### G FR ####[facility], [address] [place] [address] Glucose mass conc 289 mg/dL High 70-110 [facility] Comment on above: Order Comment: CBN Performed By: #### G FR ####[facility], [address] [place] [address] CO2 21 mmol/L Low 22-32 [facility] Comment on above: Order Comment: CBN Performed By: #### G FR ####[facility], [address] [place] [address] Urea nitrogen 12.0 mg/dL Normal 8.0-22.0 [facility] Comment on above: Order Comment: CBN Performed By: #### G FR ####[facility], [address] [place] [address] Potassium molar conc 3.7 mmol/L Normal 3.5-5.0 [facility] Comment on above: Order Comment: CBN Performed By: #### G FR ####[facility], [facility] [address] [place] [address] CBCon 02-24-2017 Basophils/100 WBC Auto (Bld) 0.4 % Normal 0.0-2.5 [facility] Comment on above: Order Comment: CBN Performed By: #### G FR ####[facility], [address] [place] [address] Eosinophils/100 leukocytes 1.5 % Normal 0.0-6.0 [facility] Comment on above: Order Comment: CBN Performed By: #### G FR ####[facility], [address] [place] [address] Erythrocyte distribution width Auto Ratio (RBC) 15.1 % Normal 11.5-15.5 [facility] Comment on above: Order Comment: CBN Performed By: #### G FR ####[facility], [address] [place] [address] Erythrocytes (RBC) 4.19 10 6/mcL Normal 4.10-5.30 [facility] Comment on above: Order Comment: CBN Performed By: #### G FR ####[address] [address] Hematocrit (HCT) 35.9 % Normal 34.0-46.0 [facility] Comment on above: Order Comment: CBN Performed By: #### G FR ####[place] [id number] Hemoglobin mass conc (Bld) 11.9 G/dL Low 12.0-16.0 [facility] Comment on above: Order Comment: CBN Performed By: #### G FR ####[facility], [address] [place] [address] Lymphocytes/100 leukocytes 36.7 % Normal 20.0-40.0 [facility] Comment on above: Order Comment: CBN Performed By: #### G FR ####[address] [address] MCH 28.5 pg Normal 27.0-33.0 [facility] Comment on above: Order Comment: CBN Performed By: #### G FR ####[address] [address] MCHC mass conc (RBC) 33.2 G/dL Normal 32.0-36.0 [facility] Comment on above: Order Comment: CBN Performed By: #### G FR ####[address] [address] MCV 85.8 fL Normal 80.0-99.0 [facility] Comment on above: Order Comment: CBN Performed By: #### G FR ####[facility], [address] [place] [address] Monocytes/100 leukocytes 4.9 % Normal 2.0-13.0 [facility] Comment on above: Order Comment: CBN Performed By: #### G FR ####[address] [address] Neutrophils 4.40 10 3/mcL Normal 1.90-7.90 [facility] Comment on above: Order Comment: CBN Performed By: #### G FR ####[address] [address] Neutrophils/100 WBC Auto (Bld) 56.5 % Normal 50.0-75.0 [facility] Comment on above: Order Comment: CBN Performed By: #### G FR ####[address] [address] Platelet mean volume (PMV) 8.0 fL Normal 6.6-10.5 [facility] Comment on above: Order Comment: CBN Performed By: #### G FR ####[facility], [address] [place] [id number] Platelets 301 10 3/mcL Normal 150-450 [facility] Comment on above: Order Comment: CBN Performed By: #### G FR ####[address] [address] WBC (Leukocytes) 7.70 10 3/mcL Normal 4.50-10.80 [facility] [facility] Comment on above: Order Comment: CBN Performed By: #### G FR ####[address] [place] [address] Depart Summaryon 02-24-2017 Depart Summary Normal [facility] Discharge Note-Physicianon 0 02-24-2017 Discharge Note-Physician Normal [facility] Glomerular Filtration Rate E stimateon 02-24-2017 eGFR (non-black) mL/min/{1.73_m2} Normal [facility] Comment on above: Order Comment: CBN Result Comment: Davidson kowalski mean GFR = 116 mL/min/1.73 sq.m. for ages 20-29 years. Chronic Kidney Disease: Less than 60 mL/min/1.73 square metersEnd Stage Renal Disease: Less than 15 mL/min/1.73 square meters Performed By: #### G FR ####[place] [address] History and Physicalon 02-24 History and Physical Normal [facility] Inpatient Patient Summaryon 02-24-2017 Inpatient Patient Summary Normal [facility] Troponin Ion 02-24-2017 Troponin I.cardiac mass conc ng/mL Normal 0.000-0.040 [facility] Comment on above: Result Comment: Trop onin I reference ranges (05/05/14): 0.00-0.040 ng/mL Negative and non-diagnostic. >0.040 ng/mL Consistent with cardiac damage, increased clinical risk and possibility of myocardial infarction. Serial measurements, a rise & fall in test results, clinical history, appropriate symptoms and/or ECG changes may help assess possibility of [place]. *Other non-acute coronary syndrome conditions such as CHF, myocarditis, pulmonary emboli, sepsis and cardiac surgery could result in myocardial damage and increased troponin levels. NOTE: This is a new and more precise Troponin assay started 05-05-14 Performed By: #### C BC ####[place] [id number] B-Hydroxybutyrateon 02-24-20 17 B-Hydroxybutyrate 51.30 mg/dL High 0.20-2.81 [facility] Comment on above: Performed By: #### C BC ####[place] [id number] Basic Metabolic Panelon 01-27 BUN/Creatinine Ratio 32.1 mg/mg High 10.0-22.0 [facility] Comment on above: Performed By: #### C BC ####[facility], [address] [place], [place] [id number] Creatinine 0.53 mg/dL Normal 0.50-1.20 [facility] Comment on above: Performed By: #### C BC ####[facility], [address] [place] [address] Calcium 8.0 mg/dL Low 8.4-10.1 [facility] Comment on above: Performed By: #### C BC ####[facility], [address] [place] [address]863 Chloride 109 mmol/L Normal 98-110 [facility] Comment on above: Performed By: #### C BC ####[facility], [address] [place] [address] 12626 Electrolyte Balance 15.0 mEq/L Normal 4.0-15.0 [facility] Comment on above: Performed By: #### C BC ####[facility], [address] [place] [address] Sodium 141 mmol/L Normal 136-145 [facility] Comment on above: Performed By: #### C BC ####[facility], [address] [place] [address] 06955 CO2 17 mmol/L Low 22-32 [facility] Comment on above: Performed By: #### C BC ####[facility], [address] [place] [address]97 Glucose mass conc 160 mg/dL High 70-110 [facility] Comment on above: Performed By: #### C BC ####[facility], [address] [place] [address] Urea nitrogen 17.0 mg/dL Normal 8.0-22.0 [facility] Comment on above: Performed By: #### C BC ####[facility], [address] [place] [address] Potassium molar conc 3.9 mmol/L Normal 3.5-5.0 [facility] Comment on above: Performed By: #### C BC ####[facility], [address] [place] [address] Calcium 7.9 mg/dL Low 8.4-10.1 [facility] Comment on above: Performed By: #### C BC ####[facility], [address] [place] [address] 11303 Chloride 103 mmol/L Normal 98-110 [facility] Comment on above: Performed By: #### C BC ####[facility], [address] [place] [address] 76467 Electrolyte Balance 15.0 mEq/L Normal 4.0-15.0 [facility] Comment on above: Performed By: #### C BC ####[facility], [address] [place] [address] 30766 BUN/Creatinine Ratio 33.3 mg/mg High 10.0-22.0 [facility] Comment on above: Performed By: #### C BC ####[facility], [address] [place] [address] Creatinine 0.54 mg/dL Normal 0.50-1.20 [facility] Comment on above: Performed By: #### C BC ####[facility], [address] [place], [place] [id number] CO2 19 mmol/L Low 22-32 [facility] Comment on above: Performed By: #### C BC ####[facility], [address] [place] [address]65 Glucose mass conc 368 mg/dL High 70-110 [facility] Comment on above: Performed By: #### C BC ####[facility], [address] [place] [address] 26674 Urea nitrogen 18.0 mg/dL Normal 8.0-22.0 [facility] Comment on above: Performed By: #### C BC ####[facility], [address] [place] [address] Potassium molar conc 4.2 mmol/L Normal 3.5-5.0 [facility] Comment on above: Performed By: #### C BC ####[address] [address] Sodium 137 mmol/L Normal 136-145 [facility] Comment on above: Performed By: #### C BC ####[facility], [address] [place] [address] Glucose mass conc 568 mg/dL Critically high 70-110 [facility] Comment on above: Order Comment: CBN Performed By: #### B MP ####[facility], [address] [place] [address] BUN/Creatinine Ratio 27.3 mg/mg High 10.0-22.0 [facility] Comment on above: Order Comment: CBN Performed By: #### B MP ####[place] [address] Creatinine 0.77 mg/dL Normal 0.50-1.20 [facility] Comment on above: Order Comment: CBN Performed By: #### B MP ####[place] [address] Calcium 10.1 mg/dL Normal 8.4-10.1 [facility] Comment on above: Order Comment: CBN Performed By: #### B MP ####[place] [address] CO2 21 mmol/L Low 22-32 [facility] Comment on above: Order Comment: CBN Performed By: #### B MP ####[facility], [address] [place] [address] Electrolyte Balance 19.0 mEq/L High 4.0-15.0 [facility] Comment on above: Order Comment: CBN Performed By: #### B MP ####[address] [address] Urea nitrogen 21.0 mg/dL Normal 8.0-22.0 [facility] Comment on above: Order Comment: CBN Performed By: #### B MP ####[address] [address] Chloride 89 mmol/L Low 98-110 [facility] Comment on above: Order Comment: CBN Performed By: #### B MP ####[place] [address] Potassium molar conc 4.5 mmol/L Normal 3.5-5.0 [facility] Comment on above: Order Comment: CBN Performed By: #### B MP ####[place] [address] Sodium 129 mmol/L Low 136-145 [facility] Comment on above: Order Comment: CBN Performed By: #### B MP ####[place] [address] CBCon 02-23-2017 Basophils/100 WBC Auto (Bld) 0.7 % Normal 0.0-2.5 [facility] Comment on above: Order Comment: CBN Performed By: #### C BC ####[place] [address] Eosinophils/100 leukocytes 0.7 % Normal 0.0-6.0 [facility] Comment on above: Order Comment: CBN Performed By: #### C BC ####[place] [address] Erythrocyte distribution width Auto Ratio (RBC) 14.9 % Normal 11.5-15.5 [facility] Comment on above: Order Comment: CBN Performed By: #### C BC ####[place] [address] Erythrocytes (RBC) 5.16 10 6/mcL Normal 4.10-5.30 [facility] Comment on above: Order Comment: CBN Performed By: #### C BC ####[place] [address] Hematocrit (HCT) 44.8 % Normal 34.0-46.0 [facility] Comment on above: Order Comment: CBN Performed By: #### C BC ####[address] [place] [address] Hemoglobin mass conc (Bld) 14.7 G/dL Normal 12.0-16.0 [facility] Comment on above: Order Comment: CBN Performed By: #### C BC ####[facility], [address] [place] [address] Lymphocytes/100 leukocytes 21.2 % Normal 20.0-40.0 [facility] Comment on above: Order Comment: CBN Performed By: #### C BC ####[facility], [address] [place] [address]30 MCH 28.5 pg Normal 27.0-33.0 [facility] Comment on above: Order Comment: CBN Performed By: #### C BC ####[facility], [address] [place] [address] 11587 MCHC mass conc (RBC) 32.8 G/dL Normal 32.0-36.0 [facility] Comment on above: Order Comment: CBN Performed By: #### C BC ####[facility], [address] [place] [address]959 MCV 86.9 fL Normal 80.0-99.0 [facility] Comment on above: Order Comment: CBN Performed By: #### C BC ####[facility], [address] [place] [address]40 Monocytes/100 leukocytes 3.9 % Normal 2.0-13.0 [facility] Comment on above: Order Comment: CBN Performed By: #### C BC ####[facility], [address] [place] [address]010 Neutrophils 6.10 10 3/mcL Normal 1.90-7.90 [facility] Comment on above: Order Comment: CBN Performed By: #### C BC ####[address] [address] Neutrophils/100 WBC Auto (Bld) 73.5 % Normal 50.0-75.0 [facility] Comment on above: Order Comment: CBN Performed By: #### C BC ####[facility], [address] [place] [address] Platelet mean volume (PMV) 7.9 fL Normal 6.6-10.5 [facility] Comment on above: Order Comment: CBN Performed By: #### C BC ####[facility], [address] [place] [address] Platelets 316 10 3/mcL Normal 150-450 [facility] Comment on above: Order Comment: CBN Performed By: #### C BC ####[facility], [address] [place] [address] WBC (Leukocytes) 8.30 10 3/mcL Normal 4.50-10.80 [facility] Comment on above: Order Comment: CBN Performed By: #### C BC ####[address] [address] Culture Bloodon 02-23-2017 Culture Blood Name : KATHLEEN VILLA Brynn : 1995 Sex: Ovalles# Loc Src Site [id number] Blood #1 02/23/17NTIBIOTICS AT COL.: See MEGAN Angel MEDICINE RESIDENT [address] [place], [place] [id number] Blood FINALCulture has been received in lab and is no growth to date.Routine cultures are held for 5 days.Blood Culture: No Growth at 5 daysKEY FOR RESULTS: - NEW RESULTATT.PHYS.: VAMSI MARRUFO LOCATION: [id number].DATE: 02/23/17 PATIENT : KATHLEEN VILLA LMICROBIOLOGYPRINTED: 02/28/17 18:00 REGULAR 2 PAGE: 2 of 1 1 Normal [facility] Drug Screen (s)on 02-23-2017 Acetaminophen mass conc <2.0 Low 10.0-30.0 [facility] Comment on above: Performed By: #### C BC ####[facility], [address] [place] [address] Drug Screen (s) Positive Normal [facility] Comment on above: Result Comment: . THE SERUM SHOWS EVIDENCE OF:1. Salicylate. Performed By: #### C BC ####[facility], [address] [place] [address] Ethanol mg/dL Normal [facility] Comment on above: Performed By: #### C BC ####[facility], [address] [place] [address] Serum TCA Negative Normal [facility] Comment on above: Performed By: #### C BC ####[facility], [address] [place] [address] Salicylate (ds) 3.0 mg/dL Low 10.0-25.0 [facility] Comment on above: Performed By: #### C BC ####[facility], [address] [place] [address] Drugs screened: SEE BELOW Normal [facility] Comment on above: Result Comment: T his drug screen is a presumptive screening only. Noconfirmation will be performed unless requested.Drugs screened include: Threshold Ethanol 10.0 mg/dl Salicylate 2.0 mg/dL Acetaminophen 2.0 mcg/mL Tricyclic Antidepressants 300 ng/mLTesting has been performed FOR MEDICAL PURPOSES ONLY. Performed By: #### C BC ####[facility], [address] [place] [address] ED Note-Provideron 7 ED Note-Provider Normal [facility] Glomerular Filtration Rate E stimateon 02-23-2017 eGFR (non-black) mL/min/{1.73_m2} Normal [facility] Comment on above: Result Comment: Davidson kowalski mean GFR = 116 mL/min/1.73 sq.m. for ages 20-29 years. Chronic Kidney Disease: Less than 60 mL/min/1.73 square metersEnd Stage Renal Disease: Less than 15 mL/min/1.73 square meters Performed By: #### C BC ####[facility], [address] [place] [address] eGFR (non-black) mL/min/{1.73_m2} Normal [facility] Comment on above: Result Comment: Davidson kowalski mean GFR = 116 mL/min/1.73 sq.m. for ages 20-29 years. Chronic Kidney Disease: Less than 60 mL/min/1.73 square metersEnd Stage Renal Disease: Less than 15 mL/min/1.73 square meters Performed By: #### G FR ####[place] [address] eGFR (non-black) mL/min/{1.73_m2} Normal [facility] Comment on above: Order Comment: CBN Performed By: #### G FR ####[place] [address] Result Comment: Davidson kowalski mean GFR = 116 mL/min/1.73 sq.m. for ages 20-29 years. Chronic Kidney Disease: Less than 60 mL/min/1.73 square metersEnd Stage Renal Disease: Less than 15 mL/min/1.73 square meters Magnesiumon 02-23-2017 Magnesium 2.0 mg/dL Normal 1.6-2.4 [facility] Comment on above: Performed By: #### M G ####[place] [address] Osmolality (s)on 02-23-2017 Osmolality 299 mOsm/kg Normal 275-300 [facility] Comment on above: Performed By: #### C BC ####[place] [address] Phosphoruson 02-23-2017 Phosphate 2.8 mg/dL Normal 2.5-4.5 [facility] Comment on above: Performed By: #### P HOS ####[facility], [address] [place] [address] TSHon 02-23-2017 Thyroid stimulating hormone (TSH) 0.62 mcIU/mL Normal 0.36-3.74 [facility] Comment on above: Performed By: #### C BC ####[facility], [address] [place] [address] Troponin Ion 02-23-2017 Troponin I.cardiac mass conc ng/mL Normal 0.000-0.040 [facility] Comment on above: Result Comment: Trop onin I reference ranges (05/05/14): 0.00-0.040 ng/mL Negative and non-diagnostic. >0.040 ng/mL Consistent with cardiac damage, increased clinical risk and possibility of myocardial infarction. Serial measurements, a rise & fall in test results, clinical history, appropriate symptoms and/or ECG changes may help assess possibility of [place]. *Other non-acute coronary syndrome conditions such as CHF, myocarditis, pulmonary emboli, sepsis and cardiac surgery could result in myocardial damage and increased troponin levels. NOTE: This is a new and more precise Troponin assay started 05-05-14 Performed By: #### T ROPI ####[facility], [address] [place] [address] XR CHEST 1 VIEWon 02-23-2017 XR CHEST [...] from the prior study. Interpreted By: Neo Villagranreliminary Report By: Neo Villagran MDElectronically Signed By: Neo Villagran MD Dictated Date: 02/23/2017 4:54:41 PM Prelim Date: 02/23/2017 4:54:41 PM Sign Date: 02/23/2017 4:58:05 PM Normal [facility] XR FOOT COMPLETE RIGHTon XR FOOT [...] PM Sign Date: 02/23/2017 7:47:57 PM Normal [facility] pH (venous)on 02-23-2017 pH of blood 7.381 [pH] Normal 7.380-7.460 [facility] Comment on above: Order Comment: CBN Performed By: #### P HV ####[facility], [address] [place] [address] Vital Signs Date Time Vital Sign Value Performing Clinician Facility 01-27-2025 13:08-0400 Diastolic blood pressure 87 mm[Hg] [employer] Work Phone: [facility] 01-27-2025 13:08-0400 Heart rate 98 /min [employer] Work Phone: [facility] 01-27-2025 13:08-0400 Systolic blood pressure 134 mm[Hg] [employer] Work Phone: [facility] 11-11-2024 10:18-0400 Body height 175.3 cm Leticia Hylton [employer] Work Phone: [facility] 11-11-2024 10:18-0400 Body mass index (BMI) [Ratio] 25.07 kg/m2 Leticia Hylton [employer] Work Phone: [facility] 11-11-2024 10:18-0400 Body weight 77 kg Leticia Hylton [employer] Work Phone: [facility] 11-11-2024 10:18-0400 Diastolic blood pressure 66 mm[Hg] Leticia Hylton DO Work Phone: [facility] 11-11-2024 10:18-0400 Heart rate 107 /min Leticia Hylton DO Work Phone: [facility] 11-11-2024 10:18-0400 Systolic blood pressure 103 mm[Hg] Leticia Hylton DO Work Phone: [facility] 07-10-2024 11:25-0500 Body height 172.7 cm Jason Paredes MD Work Phone: [facility] 07-10-2024 11:25-0500 Body mass index (BMI) [Ratio] 26 kg/m2 Jason Paredes MD Work Phone: [facility] 07-10-2024 11:25-0500 Body weight 77.56 kg Jason Paredes MD Work Phone: [facility] 07-10-2024 11:25-0500 Diastolic blood pressure 68 mm[Hg] Jason Paredes MD Work Phone: [facility] 07-10-2024 11:25-0500 Systolic blood pressure 112 mm[Hg] Jason Paredes MD Work Phone: [facility] 03-12-2024 13:58-0400 Body height 175.3 cm Kvng Lewis MD Work Phone: [facility] 03-12-2024 13:58-0400 Body mass index (BMI) [Ratio] 25.39 kg/m2 Kvng Lewis MD Work Phone: [facility] 03-12-2024 13:58-0400 Body weight 78 kg Kvng Lewis MD Work Phone: [facility] 03-12-2024 13:58-0400 Diastolic blood pressure 58 mm[Hg] Kvng Lewis MD Work Phone: [facility] 03-12-2024 13:58-0400 Heart rate 69 /min Kvng Lewis MD Work Phone: [facility] 03-12-2024 13:58-0400 SaO2% (BldA) [Mass fraction] 97 % Kvng Lewis MD Work Phone: [facility] 03-12-2024 13:58-0400 Systolic blood pressure 100 mm[Hg] Kvng Lweis MD Work Phone: [facility] 12-13-2023 15:12-0400 Body weight 77.11 kg Jessica Limestone AOC DIRECTOR INTELLIGENCE OFFICER[employer]INE [employer] Work Phone: [facility] 12-13-2023 15:12-0400 Diastolic blood pressure 87 mm[Hg] Jessica Limestone AOC DIRECTOR INTELLIGENCE OFFICER[employer] MACHINE OPERATOR Work Phone: [facility] 12-13-2023 15:12-0400 Heart rate 80 /min Jessica Limestone AOC DIRECTOR INTELLIGENCE OFFICER.[employer]E [employer]IMPING MACHINE OPERATOR Work Phone: [facility] 12-13-2023 15:12-0400 Respiratory rate 16 /min Jessica Limestone AOC DIRECTOR INTELLIGENCE OFFICER.[employer]E [employer]IMPING MACHINE OPERATOR Work Phone: [facility] 12-13-2023 15:12-0400 Systolic blood pressure 139 mm[Hg] Jessica Limestone AOC DIRECTOR INTELLIGENCE OFFICER.[employer]ING MACHINE OPERATOR Work Phone: [facility] 12-07-2023 17:30-0400 Body height 175.26 cm No Primary Care Physician [facility] 12-07-2023 17:30-0400 Body temperature 97.1 [degF] No Primary Care Physician [facility] 12-07-2023 17:30-0400 Diastolic blood pressure 70 mm[Hg] No Primary Care Physician [facility] 12-07-2023 17:30-0400 Heart rate 68 /min No Primary Care Physician [facility] 12-07-2023 17:30-0400 Respiratory rate 15 /min No Primary Care Physician [facility] 12-07-2023 17:30-0400 SaO2% (BldA) [Mass fraction] 98 % No Primary Care Physician [facility] 12-07-2023 17:30-0400 Systolic blood pressure 130 mm[Hg] No Primary Care Physician [facility] 10-25-2023 22:04-0500 Body temperature 97.4 [degF] No Primary Care Physician [facility] 10-25-2023 22:04-0500 Diastolic blood pressure 64 mm[Hg] No Primary Care Physician [facility] 10-25-2023 22:04-0500 Heart rate 77 /min No Primary Care Physician [facility] 10-25-2023 22:04-0500 Respiratory rate 19 /min No Primary Care Physician [facility] 10-25-2023 22:04-0500 SaO2% (BldA) [Mass fraction] 100 % No Primary Care Physician [facility] 10-25-2023 22:04-0500 Systolic blood pressure 117 mm[Hg] No Primary Care Physician [facility] 10-25-2023 17:12-0500 Body mass index (BMI) [Ratio] 23.3 kg/m2 No Primary Care Physician [facility] 10-25-2023 17:12-0500 Body weight 71.7 kg No Primary Care Physician [facility] 10-25-2023 16:24-0500 Body height 175.26 cm No Primary Care Physician [facility] 10-18-2023 10:00-0500 Diastolic blood pressure 71 mm[Hg] No Primary Care Physician [facility] 10-18-2023 10:00-0500 Heart rate 62 /min No Primary Care Physician [facility] 10-18-2023 10:00-0500 Respiratory rate 16 /min No Primary Care Physician [facility] 10-18-2023 10:00-0500 SaO2% (BldA) [Mass fraction] 99 % No Primary Care Physician [facility] 10-18-2023 10:00-0500 Systolic blood pressure 115 mm[Hg] No Primary Care Physician [facility] 10-18-2023 08:00-0500 Body temperature 97.9 [degF] No Primary Care Physician [facility] 10-18-2023 05:28-0500 Body mass index (BMI) [Ratio] 24.6 kg/m2 No Primary Care Physician [facility] 10-18-2023 05:28-0500 Body weight 75.6 kg No Primary Care Physician [facility] 10-17-2023 15:25-0500 Body height 175.26 cm No Primary Care Physician [facility] 10-17-2023 11:51-0500 Body temperature 97.6 [degF] No Primary Care Physician [facility] 10-17-2023 11:51-0500 Diastolic blood pressure 58 mm[Hg] No Primary Care Physician [facility] 10-17-2023 11:51-0500 Heart rate 85 /min No Primary Care Physician [facility] 10-17-2023 11:51-0500 Respiratory rate 18 /min No Primary Care Physician [facility] 10-17-2023 11:51-0500 SaO2% (BldA) [Mass fraction] 98 % No Primary Care Physician [facility] 10-17-2023 11:51-0500 Systolic blood pressure 116 mm[Hg] No Primary Care Physician [facility] 10-17-2023 09:57-0500 Body height 175.26 cm No Primary Care Physician [facility] 10-17-2023 09:57-0500 Body mass index (BMI) [Ratio] 24.7 kg/m2 No Primary Care Physician [facility] 10-17-2023 09:57-0500 Body weight 76.2 kg No Primary Care Physician [facility] 09-25-2023 11:05-0500 Body temperature 97.6 [degF] No Primary Care Physician [facility] 09-25-2023 11:05-0500 Heart rate 76 /min No Primary Care Physician [facility] 09-25-2023 11:05-0500 Respiratory rate 14 /min No Primary Care Physician [facility] 09-25-2023 11:05-0500 SaO2% (BldA) [Mass fraction] 99 % No Primary Care Physician [facility] 09-25-2023 08:08-0500 Body mass index (BMI) [Ratio] 24.1 kg/m2 No Primary Care Physician [facility] 09-25-2023 08:08-0500 Body weight 74.19 kg No Primary Care Physician [facility] 09-25-2023 08:08-0500 Diastolic blood pressure 79 mm[Hg] No Primary Care Physician [facility] 09-25-2023 08:08-0500 Systolic blood pressure 140 mm[Hg] No Primary Care Physician [facility] 09-24-2023 20:19-0500 Body temperature 97 [degF] No Primary Care Physician [facility] 09-24-2023 20:19-0500 Diastolic blood pressure 66 mm[Hg] No Primary Care Physician [facility] 09-24-2023 20:19-0500 Heart rate 96 /min No Primary Care Physician [facility] 09-24-2023 20:19-0500 Respiratory rate 16 /min No Primary Care Physician [facility] 09-24-2023 20:19-0500 SaO2% (BldA) [Mass fraction] 97 % No Primary Care Physician [facility] 09-24-2023 20:19-0500 Systolic blood pressure 125 mm[Hg] No Primary Care Physician [facility] 09-24-2023 17:48-0500 Body height 175.26 cm No Primary Care Physician [facility] 09-24-2023 17:48-0500 Body mass index (BMI) [Ratio] 24.3 kg/m2 No Primary Care Physician [facility] 09-24-2023 17:48-0500 Body weight 74.7 kg No Primary Care Physician [facility] 09-20-2023 15:35-0500 Diastolic blood pressure 79 mm[Hg] No Primary Care Physician [facility] 09-20-2023 15:35-0500 Heart rate 79 /min No Primary Care Physician [facility] 09-20-2023 15:35-0500 Respiratory rate 16 /min No Primary Care Physician [facility] 09-20-2023 15:35-0500 SaO2% (BldA) [Mass fraction] 97 % No Primary Care Physician [facility] 09-20-2023 15:35-0500 Systolic blood pressure 107 mm[Hg] No Primary Care Physician [facility] 09-20-2023 10:21-0500 Body mass index (BMI) [Ratio] 25.9 kg/m2 No Primary Care Physician [facility] 09-20-2023 10:21-0500 Body temperature 97.9 [degF] No Primary Care Physician [facility] 09-20-2023 10:21-0500 Body weight 79.9 kg No Primary Care Physician [facility] 09-06-2023 21:32-0500 Heart rate 78 /min No Primary Care Physician [facility] 09-06-2023 21:32-0500 Respiratory rate 18 /min No Primary Care Physician [facility] 09-06-2023 21:32-0500 SaO2% (BldA) [Mass fraction] 99 % No Primary Care Physician [facility] 09-06-2023 21:30-0500 Diastolic blood pressure 72 mm[Hg] No Primary Care Physician [facility] 09-06-2023 21:30-0500 Systolic blood pressure 118 mm[Hg] No Primary Care Physician [facility] 09-06-2023 18:31-0500 Body mass index (BMI) [Ratio] 25.3 kg/m2 No Primary Care Physician [facility] 09-06-2023 18:31-0500 Body temperature 98.2 [degF] No Primary Care Physician [facility] 09-06-2023 18:31-0500 Body weight 77.9 kg No Primary Care Physician [facility] 08-22-2023 06:14-0500 Diastolic blood pressure 63 mm[Hg] No Primary Care Physician [facility] 08-22-2023 06:14-0500 Heart rate 64 /min No Primary Care Physician [facility] 08-22-2023 06:14-0500 Respiratory rate 16 /min No Primary Care Physician [facility] 08-22-2023 06:14-0500 SaO2% (BldA) [Mass fraction] 97 % No Primary Care Physician [facility] 08-22-2023 06:14-0500 Systolic blood pressure 99 mm[Hg] No Primary Care Physician [facility] 08-22-2023 02:45-0500 Body height 175.26 cm No Primary Care Physician [facility] 08-22-2023 02:45-0500 Body mass index (BMI) [Ratio] 26.4 kg/m2 No Primary Care Physician [facility] 08-22-2023 02:45-0500 Body temperature 98.7 [degF] No Primary Care Physician [facility] 08-22-2023 02:45-0500 Body weight 81.2 kg No Primary Care Physician [facility] 08-10-2023 08:00-0500 Body temperature 98.1 [degF] No Primary Care Physician [facility] 08-10-2023 08:00-0500 Diastolic blood pressure 71 mm[Hg] No Primary Care Physician [facility] 08-10-2023 08:00-0500 Heart rate 65 /min No Primary Care Physician [facility] 08-10-2023 08:00-0500 Respiratory rate 15 /min No Primary Care Physician [facility] 08-10-2023 08:00-0500 SaO2% (BldA) [Mass fraction] 97 % No Primary Care Physician [facility] 08-10-2023 08:00-0500 Systolic blood pressure 109 mm[Hg] No Primary Care Physician [facility] 08-10-2023 05:07-0500 Body mass index (BMI) [Ratio] 25.9 kg/m2 No Primary Care Physician [facility] 08-10-2023 05:07-0500 Body weight 79.9 kg No Primary Care Physician [facility] 08-07-2023 10:46-0500 Body height 175.26 cm No Primary Care Physician [facility] 08-07-2023 00:45-0500 Diastolic blood pressure 41 mm[Hg] No Primary Care Physician [facility] 08-07-2023 00:45-0500 Heart rate 114 /min No Primary Care Physician [facility] 08-07-2023 00:45-0500 Respiratory rate 18 /min No Primary Care Physician [facility] 08-07-2023 00:45-0500 SaO2% (BldA) [Mass fraction] 99 % No Primary Care Physician [facility] 08-07-2023 00:45-0500 Systolic blood pressure 136 mm[Hg] No Primary Care Physician [facility] 08-06-2023 21:33-0500 Body height 175.26 cm No Primary Care Physician [facility] 08-06-2023 21:33-0500 Body mass index (BMI) [Ratio] 25.9 kg/m2 No Primary Care Physician [facility] 08-06-2023 21:33-0500 Body temperature 97.8 [degF] No Primary Care Physician [facility] 08-06-2023 21:33-0500 Body weight 79.8 kg No Primary Care Physician [facility] 08-06-2023 14:00-0500 Respiratory rate 16 /min No Primary Care Physician [facility] 08-06-2023 08:53-0500 Body height 175.26 cm No Primary Care Physician [facility] 08-06-2023 08:53-0500 Body mass index (BMI) [Ratio] 26.3 kg/m2 No Primary Care Physician [facility] 08-06-2023 08:53-0500 Body temperature 97.6 [degF] No Primary Care Physician [facility] 08-06-2023 08:53-0500 Body weight 80.8 kg No Primary Care Physician [facility] 08-06-2023 08:53-0500 Diastolic blood pressure 83 mm[Hg] No Primary Care Physician [facility] 08-06-2023 08:53-0500 Heart rate 115 /min No Primary Care Physician [facility] 08-06-2023 08:53-0500 SaO2% (BldA) [Mass fraction] 97 % No Primary Care Physician [facility] 08-06-2023 08:53-0500 Systolic blood pressure 126 mm[Hg] No Primary Care Physician [facility] 06-26-2023 02:56-0400 Diastolic blood pressure 48 mm[Hg] No Primary Care Physician [facility] 06-26-2023 02:56-0400 Systolic blood pressure 96 mm[Hg] No Primary Care Physician [facility] 06-26-2023 01:13-0400 Heart rate 80 /min No Primary Care Physician [facility] 06-26-2023 01:13-0400 Respiratory rate 18 /min No Primary Care Physician [facility] 06-26-2023 01:13-0400 SaO2% (BldA) [Mass fraction] 97 % No Primary Care Physician [facility] 06-25-2023 23:14-0400 Body height 175.26 cm No Primary Care Physician [facility] 06-25-2023 23:14-0400 Body mass index (BMI) [Ratio] 26.5 kg/m2 No Primary Care Physician [facility] 06-25-2023 23:14-0400 Body temperature 97.4 [degF] No Primary Care Physician [facility] 06-25-2023 23:14-0400 Body weight 81.6 kg No Primary Care Physician [facility] 06-25-2023 11:37-0400 Heart rate 82 /min No Primary Care Physician [facility] 06-25-2023 11:37-0400 Respiratory rate 16 /min No Primary Care Physician [facility] 06-25-2023 11:37-0400 SaO2% (BldA) [Mass fraction] 97 % No Primary Care Physician [facility] 06-25-2023 08:21-0400 Body height 175.01 cm No Primary Care Physician [facility] 06-25-2023 08:21-0400 Body mass index (BMI) [Ratio] 25.8 kg/m2 No Primary Care Physician [facility] 06-25-2023 08:21-0400 Body temperature 97.4 [degF] No Primary Care Physician [facility] 06-25-2023 08:21-0400 Body weight 79.06 kg No Primary Care Physician [facility] 06-25-2023 08:21-0400 Diastolic blood pressure 45 mm[Hg] No Primary Care Physician [facility] 06-25-2023 08:21-0400 Systolic blood pressure 136 mm[Hg] No Primary Care Physician [facility] 05-31-2023 15:02-0400 Body weight 78.47 kg Jessica Limestone AOC DIRECTOR INTELLIGENCE OFFICER.PIE CRIMPING MACHINE OPERATOR Work Phone: [facility] 05-31-2023 15:02-0400 Diastolic blood pressure 60 mm[Hg] Jessica Limestone AOC DIRECTOR INTELLIGENCE OFFICER.PIE CRIMPING MACHINE OPERATOR Work Phone: [facility] 05-31-2023 15:02-0400 Heart rate 91 /min Jessica Limestone AOC DIRECTOR INTELLIGENCE OFFICER.PIE CRIMPING MACHINE OPERATOR Work Phone: [facility] 05-31-2023 15:02-0400 Respiratory rate 18 /min Jessica Limestone AOC DIRECTOR INTELLIGENCE OFFICER.PIE CRIMPING MACHINE OPERATOR Work Phone: [facility] 05-31-2023 15:02-0400 Systolic blood pressure 92 mm[Hg] Jessica Limestone AOC DIRECTOR INTELLIGENCE OFFICER.PIE CRIMPING MACHINE OPERATOR Work Phone: [facility] 05-03-2023 09:00-0400 Respiratory rate 16 /min No Primary Care Physician [facility] 05-03-2023 04:23-0400 Body height 175.26 cm No Primary Care Physician [facility] 05-03-2023 04:23-0400 Body mass index (BMI) [Ratio] 26.9 kg/m2 No Primary Care Physician [facility] 05-03-2023 04:23-0400 Body temperature 97.7 [degF] No Primary Care Physician [facility] 05-03-2023 04:23-0400 Body weight 82.8 kg No Primary Care Physician [facility] 05-03-2023 04:23-0400 Diastolic blood pressure 68 mm[Hg] No Primary Care Physician [facility] 05-03-2023 04:23-0400 Heart rate 89 /min No Primary Care Physician [facility] 05-03-2023 04:23-0400 SaO2% (BldA) [Mass fraction] 97 % No Primary Care Physician [facility] 05-03-2023 04:23-0400 Systolic blood pressure 121 mm[Hg] No Primary Care Physician [facility] 04-29-2023 14:12-0400 Body temperature 98.3 [degF] No Primary Care Physician [facility] 04-29-2023 14:12-0400 Diastolic blood pressure 61 mm[Hg] No Primary Care Physician [facility] 04-29-2023 14:12-0400 Heart rate 62 /min No Primary Care Physician [facility] 04-29-2023 14:12-0400 Respiratory rate 18 /min No Primary Care Physician [facility] 04-29-2023 14:12-0400 SaO2% (BldA) [Mass fraction] 98 % No Primary Care Physician [facility] 04-29-2023 14:12-0400 Systolic blood pressure 132 mm[Hg] No Primary Care Physician [facility] 04-28-2023 12:55-0400 Body height 175.26 cm No Primary Care Physician [facility] 04-28-2023 12:55-0400 Body weight 78.69 kg No Primary Care Physician [facility] 04-27-2023 17:02-0400 Body mass index (BMI) [Ratio] 25.6 kg/m2 No Primary Care Physician [facility] 04-27-2023 16:45-0400 Diastolic blood pressure 61 mm[Hg] [facility] 04-27-2023 16:45-0400 Respiratory rate 18 /min [facility] 04-27-2023 16:45-0400 Systolic blood pressure 118 mm[Hg] [facility] 04-27-2023 16:13-0400 Body temperature 97.8 [degF] [facility] 04-27-2023 16:13-0400 Heart rate 90 /min [facility] 04-27-2023 13:23-0400 SaO2% (BldA) [Mass fraction] 96 % [facility] 04-27-2023 09:26-0400 Body height 175.01 cm [facility] 04-27-2023 09:26-0400 Body mass index (BMI) [Ratio] 28.1 kg/m2 [facility] 04-27-2023 09:26-0400 Body weight 86.2 kg [facility] 04-26-2023 23:47-0400 Respiratory rate 22 /min [facility] 04-26-2023 22:00-0400 Heart rate 81 /min [facility] 04-26-2023 22:00-0400 SaO2% (BldA) [Mass fraction] 97 % [facility] 04-26-2023 21:29-0400 Diastolic blood pressure 82 mm[Hg] [facility] 04-26-2023 21:29-0400 Systolic blood pressure 115 mm[Hg] [facility] 04-26-2023 20:25-0400 Body height 175.26 cm [facility] 04-26-2023 20:25-0400 Body mass index (BMI) [Ratio] 25.4 kg/m2 [facility] 04-26-2023 20:25-0400 Body temperature 98.6 [degF] [facility] 04-26-2023 20:25-0400 Body weight 78.21 kg [facility] 04-23-2023 13:00-0400 Respiratory rate 16 /min [facility] 04-23-2023 11:40-0400 Heart rate 52 /min [facility] 04-23-2023 08:33-0400 Body mass index (BMI) [Ratio] 26.9 kg/m2 [facility] 04-23-2023 08:33-0400 Body temperature 97.6 [degF] [facility] 04-23-2023 08:33-0400 Body weight 82.6 kg [facility] 04-23-2023 08:33-0400 Diastolic blood pressure 77 mm[Hg] [facility] 04-23-2023 08:33-0400 SaO2% (BldA) [Mass fraction] 96 % [facility] 04-23-2023 08:33-0400 Systolic blood pressure 123 mm[Hg] [facility] 03-22-2023 11:23-0400 Body temperature 98.1 [degF] Benito Desir MD Work Phone: [facility] 03-22-2023 11:23-0400 Diastolic blood pressure 72 mm[Hg] Benito Desir MD Work Phone: [facility] 03-22-2023 11:23-0400 Heart rate 61 /min Benito Desir MD Work Phone: [facility] 03-22-2023 11:23-0400 Respiratory rate 16 /min Benito Desir MD Work Phone: [facility] 03-22-2023 11:23-0400 SaO2% (BldA) [Mass fraction] 96 % Benito Desir MD Work Phone: [facility] 03-22-2023 11:23-0400 Systolic blood pressure 116 mm[Hg] Benito Desir MD Work Phone: [facility] 03-20-2023 03:02-0400 Body height 175.3 cm Benito Desir MD Work Phone: [facility] 03-20-2023 03:02-0400 Body mass index (BMI) [Ratio] 26.73 kg/m2 Benito Desir MD Work Phone: [facility] 03-20-2023 03:02-0400 Body weight 82.1 kg Benito Desir MD Work Phone: [facility] 01-25-2023 14:02-0400 Body weight 83.92 kg Autumn Valadez APRN.CNP Work Phone: [facility] 01-25-2023 14:02-0400 Diastolic blood pressure 64 mm[Hg] Autumn Valadez AOC DIRECTOR INTELLIGENCE OFFICER.PIE CRIMPING MACHINE OPERATOR Work Phone: [facility] 01-25-2023 14:02-0400 Heart rate 73 /min Autumn Valadez AOC DIRECTOR INTELLIGENCE OFFICER.PIE CRIMPING MACHINE OPERATOR Work Phone: [facility] 01-25-2023 14:02-0400 Respiratory rate 18 /min Autumn Valadez AOC DIRECTOR INTELLIGENCE OFFICER.PIE CRIMPING MACHINE OPERATOR Work Phone: [facility] 01-25-2023 14:02-0400 Systolic blood pressure 129 mm[Hg] Autumn Valadez AOC DIRECTOR INTELLIGENCE OFFICER.PIE CRIMPING MACHINE OPERATOR Work Phone: [facility] 12-08-2022 14:10-0400 Body height 175.3 cm Vivi Smith MD Work Phone: [facility] 12-08-2022 14:10-0400 Body temperature 97 [degF] Vivi Smith MD Work Phone: [facility] 12-08-2022 14:10-0400 Body weight 85 kg Vivi Smith MD Work Phone: [facility] 12-08-2022 14:10-0400 Diastolic blood pressure 86 mm[Hg] Vivi Smith MD Work Phone: [facility] 12-08-2022 14:10-0400 Heart rate 90 /min iVvi Smith MD Work Phone: [facility] 12-08-2022 14:10-0400 Respiratory rate 20 /min Vivi Smith MD Work Phone: [facility] 12-08-2022 14:10-0400 SaO2% (BldA) [Mass fraction] 98 % Vivi Smith MD Work Phone: [facility] 12-08-2022 14:10-0400 Systolic blood pressure 142 mm[Hg] Vivi Smith MD Work Phone: [facility] 11-07-2022 14:00-0400 Body temperature 97.3 [degF] Abelardo La MD Work Phone: [facility] 11-07-2022 14:00-0400 Body weight 90.72 kg Abelardo La MD Work Phone: [facility] 11-07-2022 14:00-0400 Diastolic blood pressure 72 mm[Hg] Abelardo La MD Work Phone: [facility] 11-07-2022 14:00-0400 Heart rate 94 /min Abelardo La MD Work Phone: [facility] 11-07-2022 14:00-0400 Respiratory rate 16 /min Abelardo La MD Work Phone: [facility] 11-07-2022 14:00-0400 SaO2% (BldA) [Mass fraction] 95 % Abelardo La MD Work Phone: [facility] 11-07-2022 14:00-0400 Systolic blood pressure 129 mm[Hg] Abelardo La MD Work Phone: [facility] 10-22-2022 16:14-0500 Body temperature 99.5 [degF] Abelardo La MD Work Phone: [facility] 10-22-2022 16:14-0500 Body weight 86.18 kg Abelardo La MD Work Phone: [facility] 10-22-2022 16:14-0500 Diastolic blood pressure 96 mm[Hg] Abelardo La MD Work Phone: [facility] 10-22-2022 16:14-0500 Heart rate 143 /min Abelardo La MD Work Phone: [facility] 10-22-2022 16:14-0500 Respiratory rate 20 /min Abelardo La MD Work Phone: [facility] 10-22-2022 16:14-0500 SaO2% (BldA) [Mass fraction] 94 % Abelardo La MD Work Phone: [facility] 10-22-2022 16:14-0500 Systolic blood pressure 150 mm[Hg] Abelardo La MD Work Phone: [facility] 09-19-2022 13:18-0500 Body temperature 97.5 [degF] Injection/[facility] 09-19-2022 13:18-0500 Diastolic blood pressure 62 mm[Hg] Injection/[facility] 09-19-2022 13:18-0500 Heart rate 50 /min Injection/[facility] 09-19-2022 13:18-0500 Respiratory rate 18 /min Injection/[facility] 09-19-2022 13:18-0500 Systolic blood pressure 123 mm[Hg] Injection/[facility] 08-16-2022 15:14-0500 Body weight 87.09 kg Autumn Valadez APRN.PIE CRIMPING MACHINE OPERATOR Work Phone: [facility] 08-16-2022 15:14-0500 Diastolic blood pressure 58 mm[Hg] Autumn Valadez AOC DIRECTOR INTELLIGENCE OFFICER.PIE CRIMPING MACHINE OPERATOR Work Phone: [facility] 08-16-2022 15:14-0500 Heart rate 68 /min Autumn Valadez AOC DIRECTOR INTELLIGENCE OFFICER.PIE CRIMPING MACHINE OPERATOR Work Phone: [facility] 08-16-2022 15:14-0500 SaO2% (BldA) [Mass fraction] 95 % Autumn Valadez AOC DIRECTOR INTELLIGENCE OFFICER.PIE CRIMPING MACHINE OPERATOR Work Phone: [facility] 08-16-2022 15:14-0500 Systolic blood pressure 113 mm[Hg] Autumn Valadez AOC DIRECTOR INTELLIGENCE OFFICER.PIE CRIMPING MACHINE OPERATOR Work Phone: [facility] 08-05-2022 11:37-0500 Body temperature 97.2 [degF] Injection/[facility] 08-05-2022 11:37-0500 Diastolic blood pressure 70 mm[Hg] Injection/[facility] 08-05-2022 11:37-0500 Heart rate 68 /min Injection/[facility] 08-05-2022 11:37-0500 Respiratory rate 18 /min Injection/[facility] 08-05-2022 11:37-0500 Systolic blood pressure 119 mm[Hg] Injection/[facility] 06-07-2022 14:14-0400 Body height 175.3 cm Phoebe Easter AOC DIRECTOR INTELLIGENCE OFFICER.PIE CRIMPING MACHINE OPERATOR Work Phone: [facility] 06-07-2022 14:14-0400 Body weight 82.33 kg Phoebe Easterday AOC DIRECTOR INTELLIGENCE OFFICER.PIE CRIMPING MACHINE OPERATOR Work Phone: [facility] 06-07-2022 14:14-0400 Diastolic blood pressure 70 mm[Hg] Phoebe Easterday AOC DIRECTOR INTELLIGENCE OFFICER.PIE CRIMPING MACHINE OPERATOR Work Phone: [facility] 06-07-2022 14:14-0400 Systolic blood pressure 118 mm[Hg] Phoebe Easter AOC DIRECTOR INTELLIGENCE OFFICER.PIE CRIMPING MACHINE OPERATOR Work Phone: [facility] 04-18-2022 08:13-0400 Body height 175.3 cm Dishon Kamwesa AOC DIRECTOR INTELLIGENCE OFFICER.PIE CRIMPING MACHINE OPERATOR Work Phone: [facility] 04-18-2022 08:13-0400 Body temperature 96.91 [degF] Dishon Kamwesa AOC DIRECTOR INTELLIGENCE OFFICER.PIE CRIMPING MACHINE OPERATOR Work Phone: [facility] 04-18-2022 08:13-0400 Body weight 81.65 kg Dishon Kamwesa AOC DIRECTOR INTELLIGENCE OFFICER.PIE CRIMPING MACHINE OPERATOR Work Phone: [facility] 04-18-2022 08:13-0400 Diastolic blood pressure 72 mm[Hg] Dishon Kamwesa AOC DIRECTOR INTELLIGENCE OFFICER.PIE CRIMPING MACHINE OPERATOR Work Phone: [facility] 04-18-2022 08:13-0400 Heart rate 78 /min Dishon Kamwesa AOC DIRECTOR INTELLIGENCE OFFICER.PIE CRIMPING MACHINE OPERATOR Work Phone: [facility] 04-18-2022 08:13-0400 SaO2% (BldA) [Mass fraction] 97 % Dishon Kamwesa AOC DIRECTOR INTELLIGENCE OFFICER.PIE CRIMPING MACHINE OPERATOR Work Phone: [facility] 04-18-2022 08:13-0400 Systolic blood pressure 120 mm[Hg] Dishon Kamwesa AOC DIRECTOR INTELLIGENCE OFFICER.PIE CRIMPING MACHINE OPERATOR Work Phone: [facility] 03-11-2022 12:07-0400 Body temperature 96.8 [degF] [facility] 03-11-2022 12:07-0400 Diastolic blood pressure 51 mm[Hg] [facility] 03-11-2022 12:07-0400 Heart rate 55 /min [facility] 03-11-2022 12:07-0400 Respiratory rate 16 /min [facility] 03-11-2022 12:07-0400 Systolic blood pressure 101 mm[Hg] [facility] 03-07-2022 14:00-0400 Body temperature 96.91 [degF] Injection/[facility] 03-07-2022 14:00-0400 Diastolic blood pressure 65 mm[Hg] Injection/[facility] 03-07-2022 14:00-0400 Heart rate 83 /min Injection/[facility] 03-07-2022 14:00-0400 Respiratory rate 16 /min Injection/[facility] 03-07-2022 14:00-0400 Systolic blood pressure 124 mm[Hg] Injection/[facility] 12-28-2021 16:16-0400 Body temperature 97.88 [degF] ANITA COMER MD [facility] 12-28-2021 16:16-0400 Diastolic blood pressure 81 mm[Hg] ANITA COMER MD [facility] 12-28-2021 16:16-0400 Heart rate 78 /min ANITA COMER MD [facility] 12-28-2021 16:16-0400 Respiratory rate 20 /min ANITA COMER MD [facility] 12-28-2021 16:16-0400 Systolic blood pressure 134 mm[Hg] ANITA COMER MD [facility] 05-31-2021 20:30-0400 SaO2% (BldA) [Mass fraction] 100 % [facility] Comment on above: Order Comment: Marshall: M Performed By: #### L [id number] ####[facility] [id number] [place], [place] [address]Oc# [phone] Encounters Encounter Date Encounter Type Care Provider Facility Start: 03-31-2025 End: 03-31-2025 ambulatory Zebulun Beam VSC Facility:[facility] Start: 03-17-2025 End: 03-19-2025 Evaluation and management of inpatient Zebulun Beam VSC Facility:[facility] Start: 03-17-2025 ambulatory Zebulun Beam VSC Facili ty:[facility] Start: 03-06-2025 ambulatory Dangelo Encarnacion Fac ility:[facility] Start: 03-06-2025 End: 03-08-2025 Evaluation and management of inpatient Dangelo Encarnacion Facility:[facility] Start: 03-05-2025 End: 03-05-2025 ambulatory Truman Marlen Facility:[facility] Start: 02-25-2025 End: 02-25-2025 ambulatory Zebulun Beam VSC Facility:[facility] Start: 02-18-2025 ambulatory Ileana Lobo Facility:[facility] Start: 02-18-2025 End: 02-19-2025 Evaluation and management of inpatient Ileana Lobo Facility:[facility] Start: 02-03-2025 End: 02-03-2025 ambulatory Zebulun Beam VSC Facility:[facility] Start: 01-27-2025 End: 01-27-2025 Office outpatient visit 25 minutes Mishel Ortez PA-C Work Phone: [facility] - [facility] Comment on above: Psoriasis vulgaris ( Primary Dx); Folliculitis; Multiple benign melanocytic nevi of both upper extremities, both lower extremities, and trunk; Seborrheic keratosis; Solar lentigo; Dermatofibroma; Cody angioma; Screening for viral disease; Encounter for screening for respiratory tuberculosis; Encounter for long-term (current) use of medications Start: 01-27-2025 End: 01-27-2025 ambulatory MISHEL ORTEZ [facility] Start: 01-22-2025 ambulatory David F Melanyrogerio Fac ility:[facility] Start: 01-22-2025 End: 01-26-2025 Evaluation and management of inpatient David Watson Luis Facility:[facility] Start: 01-08-2025 End: 01-08-2025 ambulatory Zebulun Beam VSC [facility] Start: 01-07-2025 End: 01-08-2025 Refill Mishel Ortez PA-C Work Phone: [facility] Start: 12-25-2024 End: 12-25-2024 ambulatory Zebulun Beam [facility] Facility:[facility] Start: 12-19-2024 End: 12-23-2024 Telephone encounter Manasa Cantu PA-C Work Phone: [facility] Comment on above: Appointment Request (rayray) Start: 12-14-2024 End: 12-16-2024 ambulatory Dangelo Alysha Facility:[facility] Start: 11-28-2024 End: 11-28-2024 ambulatory Brit Joseph [facility] Facility:[facility] Start: 11-11-2024 End: 11-11-2024 Telephone encounter Leticia Hylton DO Work Phone: Gastroenterology Start: 11-11-2024 End: 11-11-2024 Subsequent hospital visit by physician [facility] Comment on above: Chronic idiopathic c onstipation [K59.04] Start: 11-11-2024 End: 11-11-2024 ambulatory LETICIA HYLTON Facility:[facility] Start: 11-11-2024 End: 11-11-2024 Patient encounter procedure Leticia Hylton DO Work Phone: Gastroenterology Comment on above: Chronic idiopathic c onstipation (Primary Dx); Abdominal pain, suprapubic Start: 11-05-2024 ambulatory Kenyetta Suarez [facility] Start: 11-05-2024 End: 11-06-2024 Evaluation and management of inpatient Kenyetta Suarez Facility:[facility] Start: 11-05-2024 End: 11-05-2024 Telephone encounter Leticia Hylton DO Work Phone: Gastroenterology Comment on above: Patient states vignesh tinajero major issues Start: 11-03-2024 End: 11-04-2024 Emergency department patient visit Sergey Islas Facility:[facility] Start: 10-18-2024 End: 10-21-2024 ambulatory Ramya Lombardo Facility:[facility] Start: 10-02-2024 End: 10-10-2024 Telephone encounter Jessica Guerrero APRN.CNP Work Phone: Endocrinology Comment on above: Forms Start: 09-02-2024 End: 09-02-2024 Emergency department patient visit No Primary Care Physician Facility:[facility] Start: 09-02-2024 End: 09-02-2024 ambulatory Leticia Hylton DO Work Phone: Gastroenterology Comment on above: Chronic idiopathic c onstipation (Primary Dx); Gastroparesis Start: 09-02-2024 End: 09-02-2024 Telemedicine consultation with patient Leticia Hylton DO Work Phone: Gastroenterology Start: 08-07-2024 End: 08-07-2024 Telephone encounter Manasa Cantu PA-C Work Phone: [facility] [employer] Comment on above: Prior Authorization (Skyrizi renewal) Start: 08-02-2024 ambulatory Vamsi Duvall Facili ty:[facility] Start: 08-02-2024 End: 08-03-2024 Evaluation and management of inpatient Vamsi Duvall Facility:[facility] Start: 08-01-2024 End: 08-01-2024 Emergency department patient visit Olvin Ibarra Facility:[facility] Start: 2024 End: 08-06-2024 ambulatory Edie Bear Facility:[facility] Start: 07-23-2024 End: 07-23-2024 ambulatory KVNG CORRIGANENS Facility:[facility] Start: 07-23-2024 End: 07-23-2024 Nursing evaluation of [...] Phone: Endocrinology Start: 07-11-2024 End: 07-27-2024 ambulatory [facility] Facility:[facility] Start: 07-10-2024 End: 07-10-2024 ambulatory [facility] Facility:[facility] Start: 07-10-2024 End: 07-10-2024 ambulatory [facility] Facility:[facility] Start: 07-10-2024 End: 07-10-2024 Patient encounter [...] encounter status Jason Paredes MD Work Phone: [facility] Start: 06-28-2024 End: 07-05-2024 ambulatory [facility] Facility:[facility] Start: 06-24-2024 End: 06-25-2024 Telephone encounter Jessica Guerrero APRN.CNP Work Phone: [facility] [place] Comment on above: diabetic supplies Start: 06-17-2024 End: 06-17-2024 Telephone encounter Kvng Lewis MD Work Phone: Endocrinology Comment on above: Forms Start: 06-07-2024 ambulatory Ileana Lobo [facility] Start: 06-07-2024 End: 06-11-2024 Evaluation and management of inpatient Ileana Lobo Facility:[facility] Start: 05-28-2024 End: 06-27-2024 ambulatory Edie Bear Facility:[facility] Start: 05-21-2024 End: 05-27-2024 ambulatory [facility] Facility:[facility] Start: 05-16-2024 End: 05-24-2024 Telephone encounter Jessica Limestone AOC DIRECTOR INTELLIGENCE OFFICER.PIE CRIMPING MACHINE OPERATOR Work Phone: Endocrinology Comment on above: insulin pump Start: 05-06-2024 End: 05-06-2024 Telephone encounter Leesa CASANOVA-C Work Phone: [facility] Comment on above: Prior Authorization (Rayray renewal) Start: 04-21-2024 End: 04-21-2024 Emergency department patient visit Marc Carl Facility:[facility] Start: 04-16-2024 End: 04-16-2024 Refill Leesa Woodsonel PA-C Work Phone: [facility] Start: 04-08-2024 Refill Jessica Limestone AOC DIRECTOR INTELLIGENCE OFFICER.PIE CRIMPING MACHINE OPERATOR Work Phone: Internal [facility] [place] Comment on above: Refill Request Start: 03-12-2024 End: 03-12-2024 ambulatory VIVI LETY SMITH Facility:[facility] Start: 03-12-2024 End: 03-12-2024 Patient encounter [...] Telephone encounter Leesa Huddleston PA-C Work Phone: [facility] Comment on above: Medication Problem ( Skyrizi) Start: 12-15-2023 ambulatory Kyara Wu [employer] Super[employer] Comment on above: Primary Care Coordin ator Chronic Care Start: 12-13-2023 End: 12-13-2023 ambulatory PRASADAngel SMITH Facility:[facility] Start: 12-13-2023 End: 12-13-2023 Patient encounter procedure Jessica Guerrero APRN.CNP Work Phone: Endocrinology Comment on above: Type 1 diabetes kasi itus with hyperglycemia, with long-term current use of insulin (HCC) (Primary Dx); Insulin pump status Start: 12-07-2023 End: 12-07-2023 Emergency department patient visit No Primary Care Physician [facility] Work Phone: Start: 11-14-2023 End: 11-14-2023 Office outpatient visit 15 minutes Leesa Huddleston PA-C Work Phone: [facility] Comment on above: Psoriasis vulgaris ( Primary Dx); Multiple benign nevi Start: 11-10-2023 Patient Outreach Kyara Wu [employer] Supervisor Comment on above: Transition Of Care Start: 11-03-2023 Patient Outreach Kyara Wu [employer] Supervisor Comment on above: Transition Of Care Start: 10-27-2023 Patient Outreach Kyara Wu [employer] Supervisor Comment on above: Transition Of Care Start: 10-25-2023 End: 10-25-2023 Emergency department patient visit No Primary Care Physician [facility] Work Phone: Start: 10-20-2023 Patient Outreach Kyara Wu [employer] Supervisor Comment on above: Transition Of Care Start: 10-19-2023 Patient Outreach Kyara garza RN [facility] [employer] Supervisor Comment on above: Transition Of Care ( Message) Start: 10-18-2023 Non-patient / Non-visit No [facility] Physician [facility] Inpatient Physicians Work Phone: Start: 10-17-2023 End: 10-18-2023 Evaluation and management of inpatient No Primary Care Physician [facility] Work Phone: Start: 10-12-2023 [facility] Comment on above: Primary Care Coordin ator Chronic Care Start: 10-02-2023 Telephone encounter Kvng Brink MD Work Phone: Endocrinology Comment on above: Forms (DME: [employer] for pump supplies) Start: 09-29-2023 ambulatory [facility] Comment on above: Primary Care Coordin ator Chronic Care Start: 09-25-2023 End: 09-25-2023 Emergency department patient visit No Primary Care Physician [facility] Work Phone: Start: 09-24-2023 End: 09-24-2023 Emergency department patient visit No Primary Care Physician [facility] Work Phone: Start: 09-21-2023 Refill Vivi Smith MD Work Phone: Internal Medicine [place] Comment on above: Refill Request Start: 09-20-2023 End: 09-20-2023 Emergency department patient visit No Primary Care Physician [facility] Work Phone: Start: 09-06-2023 End: 09-06-2023 Emergency department patient visit No Primary Care Physician [facility] Work Phone: Start: 08-22-2023 End: 08-22-2023 Emergency department patient visit No [facility] Start: 08-17-2023 Telephone encounter Leesa Huddleston PA-C Work Phone: [facility] Start: 08-15-2023 Patient Outreach Kyara garza RN [facility] [employer] Super[employer] Comment on above: Transition Of Care Start: 08-10-2023 Non-patient / Non-visit No Elaine [facility] Physician [facility] Inpatient Physicians Work Phone: Start: 08-09-2023 Non-patient / Non-visit No [facility] Inpatient Physicians Work Phone: Start: 08-08-2023 Non-patient / Non-visit No [facility] Physician [facility] Inpatient Physicians Work Phone: Start: 08-07-2023 End: 08-10-2023 Evaluation and management of inpatient No Primary Care Physician [facility] Work Phone: Start: 08-06-2023 End: 08-06-2023 Emergency department patient visit No Primary Care Physician [facility] Work Phone: Start: 06-25-2023 End: 06-26-2023 Emergency department patient visit No Primary Care Physician [facility] Work Phone: Start: 06-25-2023 End: 06-25-2023 Emergency department patient visit No Primary Care Physician [facility] Work Phone: Start: 05-31-2023 End: 05-31-2023 Patient encounter procedure Jessica Guerrero APRN.PIE CRIMPING MACHINE OPERATOR Work Phone: Endocrinology Comment on above: Type 1 diabetes kasi itus with hyperglycemia, with long-term current use of insulin (HCC) (Primary Dx); Insulin pump status Start: 05-03-2023 End: 05-03-2023 Emergency department patient visit No Primary Care Physician [facility] Work Phone: Start: 05-02-2023 Refill Leesa swain PA-C Work Phone: [facility] Comment on above: Psoriasis vulgaris ( Primary Dx) Start: 04-29-2023 Non-patient / Non-visit No [facility] Physician [facility] Inpatient Physicians Work Phone: Start: 04-28-2023 Non-patient / Non-visit No Elaine [facility] Physician [facility] Inpatient Physicians Work Phone: Start: 04-27-2023 Non-patient / Non-visit No [facility] Physician [facility] Inpatient Physicians Work Phone: Start: 04-27-2023 End: 04-29-2023 Evaluation and management of inpatient [facility] Work Phone: Start: 04-27-2023 End: 04-29-2023 observation encounter No Primary Care Physician [facility] Work Phone: Start: 04-26-2023 End: 04-26-2023 Emergency department patient visit [facility] Work Phone: Start: 04-23-2023 End: 04-23-2023 Emergency department patient visit [facility] Work Phone: Start: 04-06-2023 End: 04-06-2023 Emergency department patient visit VIVI SMITH Facility:[id number] Start: 03-20-2023 End: 03-22-2023 [facility] Start: 03-20-2023 End: 03-22-2023 Emergency department patient visit Mariel Gagnon MD Work Phone: [facility] Start: 02-15-2023 Patient encounter procedure [facility] Department Start: 02-08-2023 Patient Outreach Kyara garza RN [facility] [employer] Supervisor Comment on above: Transition Of Care Start: 02-01-2023 Telephone encounter Vivi Smith MD Work Phone: [facility] [place] Primary Comment on above: Results Start: 01-31-2023 End: 02-04-2023 Evaluation and management of inpatient VIVI SMITH Facility:[id number] Start: 01-25-2023 End: 01-25-2023 ambulatory VIVI SMITH Facility:[id number] Start: 01-25-2023 End: 01-25-2023 Patient encounter procedure Autumn Valadez AOC DIRECTOR INTELLIGENCE OFFICER.PIE CRIMPING MACHINE OPERATOR Work Phone: Endocrinology Comment on above: Type 1 diabetes kasi itus with hyperglycemia, with long-term current use of insulin (HCC) (Primary Dx); Insulin pump status; Screening for diabetic retinopathy Start: 01-25-2023 End: 01-25-2023 Nursing evaluation of patient and report Nurse [facility] Work Phone: [facility] Primary Comment on above: Left flank pain (Elaine ten Dx); Dysuria Start: 01-24-2023 Telephone encounter Vivi Smith MD Work Phone: [facility] Primary Comment on above: Orders Results Appointment Start: 01-20-2023 End: 01-20-2023 ambulatory VIVI SMITH Facility:[id number] Start: 01-12-2023 End: 01-13-2023 ambulatory MADONNA TORO Facility:[id number] Start: 01-09-2023 E-mail encounter fro m caregiver Phoebe Mckeon AOC DIRECTOR INTELLIGENCE OFFICER.PIE CRIMPING MACHINE OPERATOR Work Phone: [facility] Start: 01-09-2023 Patient encounter procedure Phoebe Rober Mckeon AOC DIRECTOR INTELLIGENCE OFFICER.PIE CRIMPING MACHINE OPERATOR Work Phone: Obstetrics and Gynecology Comment on above: Request an Appointme nt Start: 01-03-2023 Telephone encounter Kvng Brink MD Work Phone: Endocrinology Comment on above: Forms Start: 12-09-2022 Telephone encounter Vivi Smith MD Work Phone: [facility] Primary Comment on above: Patient Question Start: 12-08-2022 End: 12-08-2022 Office outpatient new 30 minutes Vivi Smith MD Work Phone: [facility] Primary Comment on above: Gastroparesis due to DM (HCC) (Primary Dx); Aortic root aneurysm (HCC); Primary hypertension; Chronic nausea; 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); Marfan syndrome; PTSD (post-traumatic stress disorder); Generalized abdominal pain Start: 11-07-2022 End: 11-07-2022 Patient encounter procedure Abelardo La MD Work Phone: [facility] Comment on above: Viral conjunctivitis (Primary Dx) Start: 11-04-2022 Refill Leesa swain PA-C Work Phone: [facility] Start: 11-02-2022 Telephone encounter Kvng Brink MD Work Phone: Endocrinology Comment on above: Forms Start: 10-31-2022 Telephone encounter Kvng Brink MD Work Phone: Endocrinology Comment on above: Insurance Authorizat ion; Forms Start: 10-22-2022 End: 10-22-2022 Patient encounter procedure Abelardo La MD Work Phone: [facility] Comment on above: Lower abdominal pain (Primary Dx) Start: 10-04-2022 End: 10-04-2022 Office outpatient visit 25 minutes Leesa Huddleston PA-C Work Phone: Dermatology [facility] Comment on above: Psoriasis vulgaris ( Primary Dx); Folliculitis; Encounter for long-term current use of high risk medication; Screening for viral disease Start: 09-19-2022 End: 09-19-2022 ambulatory Injection/Port [facility] Comment on above: Type 1 diabetes kasi itus with other specified complication (HCC) (Primary Dx) Start: 09-06-2022 Telephone encounter Autumn peralta APRN.PIE CRIMPING MACHINE OPERATOR Work Phone: Endocrinology Comment on above: Medication Problem Start: 08-16-2022 End: 08-16-2022 Patient encounter procedure Autumn Valadez APRN.PIE CRIMPING MACHINE OPERATOR Work Phone: Endocrinology Comment on above: Type 1 diabetes kasi itus with hyperglycemia, with long-term current use of insulin (HCC) (Primary Dx); Insulin pump status Start: 08-05-2022 End: 08-05-2022 ambulatory [facility] Comment on above: [...] patient Kvng Lewis MD Work Phone: [facility] Start: 07-06-2022 Telephone encounter Kvng Brink MD Work Phone: Endocrinology Comment on above: Appointment Start: 06-13-2022 Telephone encounter Tawanda soto DO Work Phone: Endocrinology Comment on above: Rodrigue EMMANUELN for insu bill pump/pump supplies Start: 06-07-2022 End: 06-07-2022 Patient encounter procedure Phoebe Mckeon AOC DIRECTOR INTELLIGENCE OFFICER.PIE CRIMPING MACHINE OPERATOR Work Phone: Obstetrics and Gynecology Comment on above: Gonorrhea (Primary D x); Screen for sexually transmitted diseases Start: 06-07-2022 Telephone encounter Cyndy walker MD Work Phone: Endocrinology Comment on above: Forms ([facility] Medical) Start: 05-13-2022 ambulatory Tawanda Khoury DO Work Phone: Endocrinology Comment on above: Pump Data/30 day glu cose logs Start: 05-13-2022 E-mail encounter fro m caregiver Tawanda Khoury DO Work Phone: [facility] Start: 05-12-2022 End: 05-12-2022 Nursing evaluation of patient and report Nurse Physical Biochemist [facility] Work Phone: Obstetrics and Gynecology Comment on above: Gonorrhea (Primary D x) Start: 05-10-2022 ambulatory Phoebe Mcguire rday AOC DIRECTOR INTELLIGENCE OFFICER.PIE CRIMPING MACHINE OPERATOR Work Phone: Obstetrics and Gynecology Comment on above: Question regarding S YPHILIS TOTAL W/REFLEX Start: 05-10-2022 Telephone encounter Phoebe conde AOC DIRECTOR INTELLIGENCE OFFICER.PIE CRIMPING MACHINE OPERATOR Work Phone: Obstetrics and Gynecology Comment on above: Results; Orders Start: 05-02-2022 Refill Tawanda Khoury DO Work Phone: Endocrinology Comment on above: Refill Request Refill Request (Darcy ess) Start: 04-18-2022 End: 04-18-2022 Patient encounter procedure Dashawn Cain AOC DIRECTOR INTELLIGENCE OFFICER.PIE CRIMPING MACHINE OPERATOR Work Phone: [facility] Comment on above: Menstrual irregulari ty (Primary Dx); Screening for STD (sexually transmitted disease); Chronic nausea Start: 03-11-2022 End: 03-11-2022 ambulatory Chair 9 [facility] [place] Comment on above: Type 1 diabetes kasi itus with other specified complication (HCC) (Primary Dx) Start: 03-10-2022 Refill Dashawn Cain AOC DIRECTOR INTELLIGENCE OFFICER.PIE CRIMPING MACHINE OPERATOR Work Phone: [facility] Start: 03-07-2022 End: 03-07-2022 ambulatory Injection/Port [facility] Comment on above: Type 1 diabetes kasi itus with other specified complication (HCC) (Primary Dx) Start: 03-01-2022 Chart abstracting Jayjay cobb MD Work Phone: Infusion Center Start: 01-29-2022 End: 01-29-2022 Subsequent hospital visit by physician Sourav Butts MD Work Phone: [facility] Comment on above: DKA,TYPE 1 Start: 01-27-2022 End: 01-27-2022 Subsequent hospital visit by physician Dashawn Cain APRN.PIE CRIMPING MACHINE OPERATOR Work Phone: [facility] Comment on [...] Emergency department patient visit ANITA COMER MD [facility] Start: 12-27-2021 End: 12-27-2021 Subsequent hospital visit by physician Latosha PEREZW [facility] Comment on above: VOMITTING/CFD/TRIAGE Start: 12-25-2021 Telephone encounter Velia caballero MD Work Phone: [facility] Adult Comment on above: Patient Question Start: 12-06-2021 Telephone encounter Tawanda Brynn Keller rsjordyn DO Work Phone: Endocrinology Comment on above: approval letter (ins ulin aspart U-100 (NOVOLOG U-100 INSULIN ASPART) 100 unit/mL) Start: 11-26-2021 End: 11-26-2021 Subsequent hospital visit by physician [facility] Comment on above: E10.9 Start: 11-25-2021 End: 11-26-2021 Subsequent hospital visit by physician [facility] Comment on above: E10.9 Start: 10-12-2021 Telephone encounter Leticia Hylton DO Work Phone: Gastroenterology Comment on above: Appointment Start: 02-23-2017 End: 02-24-2017 Emergency department patient visit [facility] Start: 12-05-2014 Patient encounter status [facility] Procedures Date Procedure Procedure Detail Performing Clinician Start: 11-11-2024 Radiologic exam abdo men 1 view Leticia Hylton DO Work Phone: Start: 07-10-2024 Microscopic observat ion [Identifier] in Cervix by Cyto stain Manasa Cantu PA-C Work Phone: Start: 03-12-2024 Hemoglobin A1c/Hemoglobin.total in Blood Kvng Lewis MD Work Phone: Start: 12-13-2023 Hemoglobin A1c/Hemoglobin.total in Blood Jessica Greener AOC DIRECTOR INTELLIGENCE OFFICER.PIE CRIMPING MACHINE OPERATOR Work Phone: Start: 09-24-2023 Plain chest X-ray [...] Start: 05-31-2023 Hemoglobin A1c/Hemoglobin.total in Blood Jessica Greener AOC DIRECTOR INTELLIGENCE OFFICER.PIE CRIMPING MACHINE OPERATOR Work Phone: Start: 04-28-2023 Urine culture No Primar y Care Physician Start: 04-26-2023 CT angiography of ch est with contrast Start: 04-23-2023 CT of thorax, abdome n and pelvis with contrast Start: 03-22-2023 Glucose measurement [facility] tammy Ireland MD Work Phone: Start: 03-22-2023 Glucose [...] Work Phone: Start: 03-21-2023 Glucose measurement [facility] tammy Ireland MD Work Phone: Start: 03-21-2023 Glucose measurement Gabo Ireland MD Work Phone: Start: 03-21-2023 Comprehensive metabolic panel Ernie Ireland MD Work Phone: Start: 03-20-2023 Glucose measurement [facility] tammy Ireland MD Work Phone: Start: 03-20-2023 Electrocardiogram marianna akila Ireland MD Work Phone: Start: 03-20-2023 Glucose measurement [facility] tammy Ireland MD Work Phone: Start: 03-20-2023 Ecg routine ecg w/le ast 12 lds w/i&r Siddharth Gagnon MD Work Phone: Start: 03-20-2023 Glucose measurement [facility] tammy Ireland MD Work Phone: Start: 03-20-2023 Ecg routine ecg w/le ast 12 lds w/i&r Mary Mesa PA-C Work Phone: Start: 03-20-2023 Basic metabolic pane l calcium total Mary Mesa PA-C Work Phone: Start: 03-20-2023 Ct [...] 01-25-2023 Hemoglobin A1c/Hemoglobin.total in Blood Autumn Valadez AOC DIRECTOR INTELLIGENCE OFFICER.PIE CRIMPING MACHINE OPERATOR Work Phone: Start: 01-25-2023 Urnls dip stick/tabl et rgnt auto w/o microscopy Vivi Smith MD Work Phone: Start: 08-16-2022 Hemoglobin A1c/Hemoglobin.total in Blood Autumn Valadez AOC DIRECTOR INTELLIGENCE OFFICER.PIE CRIMPING MACHINE OPERATOR Work Phone: Start: 05-10-2022 Microscopic observat ion [Identifier] in Cervix by Cyto stain Leesa Huddleston PA-C Work Phone: Start: 04-18-2022 Adult depression scr eening assessment Dashawn Cain AOC DIRECTOR INTELLIGENCE OFFICER.PIE CRIMPING MACHINE OPERATOR Work Phone: Start: 12-28-2021 Ecg routine ecg [...] for Adults (1 - 1-dose 75+ series) [facility] Start: 2054 RSV Immunization aged 60 or older (1 - 1-dose 60+ series) RSV Immunization aged 60 or older (1 - 1-dose 60+ series) [facility] Start: 2044 Zoster Vaccines (1 of 2) Zoster Vaccines (1 of 2) [facility] Start: 07-10-2029 Screening for malignant neoplasm of cervix Cervical Cancer Screening [facility] Start: 07-10-2027 Screening for malignant neoplasm of cervix [facility] Start: 02-04-2026 End: 02-04-2026 Patient encounter procedure 02/04/2026 10:00 AM EDT Office Visit [facility] [address] [place] [id number] Mishel Ortez PA-C [address] [place], [place] [id number] [facility] Start: 11-11-2025 BP Controlled (<130/80) BP Controlled (<130/80) [facility] Start: 07-30-2025 End: 07-30-2025 Patient encounter procedure 07/30/2025 9:20 AM EST Office Visit [facility] D[facility] [address] [place] [phone] Mishel Ortez PA-C [address] [place], [place] [id number] [facility] D[facility] - [facility] Start: 07-14-2025 End: 07-14-2025 Patient encounter procedure 07/14/2025 10:30 AM EST Office Visit OB/Gynecology [address] [place], [place] [id number] Jason Paredes MD [address] [place] [address] Annual OB/Gynecology Comment on above: Annual Start: 07-10-2025 BP Controlled (<130/80) BP Controlled (<130/80) [facility] Start: 05-10-2025 PAP TESTING PAP TESTING [facility] Start: 05-10-2025 Screening for malignant neoplasm of cervix [facility] Start: 04-28-2025 Influenza vaccination Influenza Vaccine (Season Ended) [facility] Start: 03-12-2025 BP Controlled (<130/80) BP Controlled (<130/80) [facility] Start: 03-12-2025 Hemoglobin A1c measurement Diabetes: Hemoglobin A1C [facility] Start: 01-27-2025 End: 01-27-2026 CBC W Auto Differential panel - Blood CBC auto differential Lab Routine Encounter for long-term (current) use of medications Expected: 01/27/2025 (Approximate), Expires: 01/27/2026 [facility] Work Phone: Comment on above: Expected: 01/27/2025 (Approximate), Expi res: 01/27/2026 Start: 01-27-2025 End: 01-27-2026 Comprehensive metabolic 1998 panel - Serum or Plasma Comprehensive metabolic panel Lab Routine Encounter for long-term (current) use of medications Expected: 01/27/2025 (Approximate), Expires: 01/27/2026 [facility] Comment on above: Expected: 01/27/2025 (Approximate), Expi res: 01/27/2026 Start: 01-27-2025 End: 01-27-2026 Hepatitis A virus IgM Ab [Presence] in Serum or Plasma by Immunoassay Hepatitis A antibody, IgM Lab Routine Screening for viral disease Encounter for long-term (current) use of medications Expected: 01/27/2025 (Approximate), Expires: 01/27/2026 [facility] Comment on above: Expected: 01/27/2025 (Approximate), Expi res: 01/27/2026 Start: 01-27-2025 End: 01-27-2026 Hepatitis B virus core IgM Ab [Presence] in Serum or Plasma by Immunoassay Hepatitis B core antibody, IgM Lab Routine Screening for viral disease Encounter for long-term (current) use of medications Expected: 01/27/2025 (Approximate), Expires: 01/27/2026 [facility] Comment on above: Expected: 01/27/2025 (Approximate), Expi res: 01/27/2026 Start: 01-27-2025 End: 01-27-2026 Hepatitis B virus surface Ab [Units/volume] in Serum or Plasma by Immunoassay Hepatitis B surface antibody Lab Routine Screening for viral disease Encounter for long-term (current) use of medications Expected: 01/27/2025 (Approximate), Expires: 01/27/2026 [facility] Comment on above: Expected: 01/27/2025 (Approximate), Expi res: 01/27/2026 Start: 01-27-2025 End: 01-27-2026 Hepatitis B virus surface Ag [Presence] in Serum or Plasma by Immunoassay Hepatitis B surface antigen Lab Routine Screening for viral disease Encounter for long-term (current) use of medications Expected: 01/27/2025 (Approximate), Expires: 01/27/2026 [facility] Comment on above: Expected: 01/27/2025 (Approximate), Expi res: 01/27/2026 Start: 01-27-2025 End: 01-27-2026 Hepatitis C virus Ab [Presence] in Serum or Plasma by Immunoassay Hepatitis C antibody Lab Routine Screening for viral disease Encounter for long-term (current) use of medications Expected: 01/27/2025 (Approximate), Expires: 01/27/2026 [facility] Comment on above: Expected: 01/27/2025 (Approximate), Expi res: 01/27/2026 Start: 01-27-2025 End: 01-27-2026 HIV 1+2 Ab+HIV1 p24 Ag [Presence] in Serum or Plasma by Immunoassay HIV-1 and HIV-2 Antigen-Antibody Screen Lab Routine Screening for viral disease Encounter for long-term (current) use of medications Expected: 01/27/2025 (Approximate), Expires: 01/27/2026 [facility] Comment on above: Expected: 01/27/2025 (Approximate), Expi res: 01/27/2026 Start: 01-27-2025 End: 01-27-2026 QUANTIFERON TB GOLD QUANTIFERON TB GOLD Lab Routine Encounter for screening for respiratory tuberculosis Encounter for long-term (current) use of medications Expected: 01/27/2025 (Approximate), Expires: 01/27/2026 [facility] Comment on above: Expected: 01/27/2025 (Approximate), Expi res: 01/27/2026 Start: 01-27-2025 End: 01-27-2025 Patient encounter procedure 01/27/2025 1:00 PM EDT Office Visit [facility] [address] [place] [id number] Mishel Ortez PA-C [address] [place] [address] [facility] Start: 01-06-2025 End: 01-06-2025 Patient encounter procedure 01/06/2025 1:00 PM EDT Office Visit [facility] [address] [place] [phone] Gardenia Reyes PA-C [address] [place] [address] [facility] Start: 12-12-2024 Hemoglobin A1c measurement Diabetes: Hemoglobin A1C [facility] Start: 11-11-2024 End: 11-11-2024 Patient encounter procedure 11/11/2024 10:30 AM EDT Office Visit Gastroenterology [facility] [address] [place] [address] Leticia Hylton, [facility] [address] [place] [address] eating issues/gp Gastroenterology Comment on above: eating issues/gp Start: 09-12-2024 BP Controlled (<130/80) BP Controlled (<130/80) [facility] Start: 09-12-2024 Hemoglobin A1c measurement [facility] Start: 09-03-2024 End: 09-03-2024 Patient encounter procedure 09/03/2024 11:30 AM EST Office Visit Endocrinology [address] [place], [place] [id number] Jessica Guerrero APRN.PIE CRIMPING MACHINE OPERATOR [address] [place], [place] [id number] 6 month follow up Endocrinology Comment on above: 6 month follow up Start: 09-02-2024 End: 09-02-2024 ambulatory 09/02/2024 9:30 AM EST [facility] Gastroenter[facility] [address] [place] [address] DO [address] [place] [address] gp f/u Gastroenterology Comment on above: gp f/u Start: 08-28-2024 Medicare Advantage Annual Wellness Visit Medicare Advantage Annual Wellness Visit [facility] Start: 08-15-2024 Diabetes: Estimated Glomerular Filtration Rate for Kidney Health Diabetes: Estimated Glomerular Filtration Rate for Kidney Health [facility] Start: 08-06-2024 End: 08-06-2024 Patient encounter procedure [facility] Start: 2024 Screening for malignant neoplasm of cervix HPV/Cotest [facility] Start: 07-23-2024 End: 07-23-2024 Nursing evaluation of patient and report 07/23/2024 9:00 AM EST Nurse Visit Endocrinology [address] [place] [address] Vamsi Carson, RN [address] [id number] Type 1 diabetes mellitus with hyperglycemia, with [...] Insulin pump status Expected: 07/19/2024, Expires: 10/18/2024 [facility] Work Phone: Comment on above: Expected: 07/19/2024, Expires: Start: 07-19-2024 End: 10-18-2024 Hemoglobin A1c in Blood HEMOGLOBIN A1C Lab Routine Type 1 diabetes mellitus with hyperglycemia, with long-term current use of insulin (HCC) Insulin pump status Expected: 07/19/2024, Expires: 10/18/2024 [facility] Comment on above: Expected: 07/19/2024, Expires: Start: 07-19-2024 End: 10-18-2024 Lipid 1996 panel - Serum or Plasma LIPID PANEL BASIC Lab Routine Type 1 diabetes mellitus with hyperglycemia, with long-term current use of insulin ([facility]) Insulin pump status Expected: 07/19/2024, Expires: 10/18/2024 [facility] Comment on above: Expected: 07/19/2024, Expires: Start: 07-19-2024 End: 10-18-2024 Microalbumin/Creatinine [Mass Ratio] in Urine ALBUMIN/CREATININE RATIO, URINE Lab Routine Type 1 diabetes mellitus with hyperglycemia, with long-term current use of insulin ([facility]) Insulin pump status Expected: 07/19/2024, Expires: 10/18/2024 [facility] Comment on above: Expected: 07/19/2024, Expires: Start: 07-19-2024 End: 07-19-2024 ambulatory 07/19/2024 1:30 PM [facility] Endocrinology [address] [place] [address] Jessica Guerrero APRN.PIE CRIMPING MACHINE OPERATOR [address] [place] [address] follw up Endocrinology Comment on above: follw up Start: 07-10-2024 End: 10-09-2024 Hepatitis C virus RNA [Units/volume] (viral load) in Serum or Plasma by DANIEL with probe detection [facility] Comment on above: Expected: 07/10/2024, Expires: Start: 07-10-2024 End: 10-09-2024 HIV 1+2 Ab [Presence] in Serum or Plasma by Immunoassay [facility] Work Phone: Comment on above: Expected: 07/10/2024, Expires: Start: 07-10-2024 End: 10-09-2024 SYPHILIS TREPONEMAL W/REFLEX [facility] Comment on above: Expected: 07/10/2024, Expires: Start: 07-10-2024 End: 10-09-2024 Thyrotropin [Units/volume] in Serum or Plasma [facility] Comment on above: Expected: 07/10/2024, Expires: Start: 07-10-2024 End: 07-10-2024 Patient encounter procedure 07/10/2024 11:10 AM EST Office Visit OB/Gynecology [address] [place] [id number] Jason Paredes MD [address] [place] [id number] Annual/ Referral in Scan Doc OB/Gynecology Comment on above: Annual/ Referral in Scan Doc Start: 06-13-2024 End: 06-13-2024 Patient encounter procedure 06/13/2024 3:00 PM EDT Office Visit Endocrinology [address] [place] [address] Jessica Guerrero, AOC DIRECTOR INTELLIGENCE OFFICER.PIE CRIMPING MACHINE OPERATOR [address] [place] [address] 6 month follow up Endocrinology Comment on above: 6 month follow up Start: 06-13-2024 Hemoglobin A1c measurement HbA1C [facility] Start: 06-12-2024 Hemoglobin A1c measurement HbA1C [facility] Start: 05-31-2024 BP Controlled (<130/80) BP Controlled (<130/80) [facility] Start: 05-31-2024 Hemoglobin A1c measurement Diabetes: Hemoglobin A1C [facility] Start: 05-28-2024 End: 05-28-2024 Patient encounter procedure 05/28/2024 11:30 AM EDT Office Visit Endocrinology [address] [place] [address] Jessica Guerrero, AOC DIRECTOR INTELLIGENCE OFFICER.PIE CRIMPING MACHINE OPERATOR [address] [place] [address] 2-3 month f/u Endocrinology Comment on above: 2-3 month f/u Start: 04-28-2024 COVID-19 Vaccine ( season) COVID-19 Vaccine () [facility] Start: 04-28-2024 Covid-19 Vaccine () Covid-19 Vaccine () [facility] Start: 04-28-2024 Influenza vaccination [facility] Start: 04-16-2024 DTaP/Tdap/Td Vaccines (3 - Td or Tdap) DTaP/Tdap/Td Vaccines (3 - Td or Tdap) [facility] Start: 04-16-2024 Urine microalbumin profile [facility] Start: 03-12-2024 Hemoglobin A1c measurement HbA1C [facility] Start: 03-12-2024 End: 03-12-2024 Patient encounter procedure 03/12/2024 2:00 PM EDT Office Visit Endocrinology [address] [place] [address] Kvng Lewis MD [address] [place] [address] follow up Endocrinology Comment on above: follow up Start: 02-08-2024 BP CONTROLLED (<130/80) BP CONTROLLED (<130/80) [facility] Start: 02-01-2024 End: 02-01-2024 Patient encounter procedure 02/01/2024 10:00 AM EDT Office Visit [facility] D[facility]atology [address] [place] [phone] Leesa Huddleston PA-C [address] [place] [address] [facility] Start: 01-26-2024 BP CONTROLLED (<130/80) BP CONTROLLED (<130/80) [facility] Start: 01-21-2024 ANNUAL PCP TEAM CHRONIC DISEASE VISIT ANNUAL PCP TEAM CHRONIC DISEASE VISIT [facility] Start: 01-21-2024 BP CONTROLLED (<130/80) BP CONTROLLED (<130/80) [facility] Start: 12-09-2023 ANNUAL PCP TEAM CHRONIC DISEASE VISIT ANNUAL PCP TEAM CHRONIC DISEASE VISIT [facility] Start: 11-30-2023 Hemoglobin A1c measurement HbA1C [facility] Start: 11-30-2023 Hemoglobin A1c/Hemoglobin.total in Blood HbA1C [facility] Start: 11-14-2023 End: 11-14-2023 Patient encounter procedure 11/14/2023 10:20 AM EDT Office Visit [facility] D[facility]atology [address] [place] [phone] Leesa Huddleston PA-C [address] [place] [address] [facility] Start: 11-08-2023 BP CONTROLLED (<130/80) BP CONTROLLED (<130/80) [facility] Start: 10-25-2023 [facility] Start: 10-25-2023 Suicide precautions [facility] Start: 10-18-2023 Patient discharge [facility] Start: 10-17-2023 [facility] Start: 10-17-2023 Venous catheter care management [facility] Start: 10-17-2023 Assessment of risk of venous thromboembolism [facility] Start: 10-17-2023 Continuous pulse oximetry [facility] Start: 10-17-2023 Insertion of catheter into peripheral vein [facility] Start: 10-17-2023 Measuring intake and output [facility] Start: 10-17-2023 Notification of physician [facility] Start: 10-17-2023 Patient education [facility] Start: 10-17-2023 Patient referral to dietitian [facility] Start: 10-17-2023 Providing care according to standard [facility] Start: 10-17-2023 Referral to occupational therapist [facility] Start: 10-17-2023 Referral to service [facility] Start: 10-17-2023 Vital signs [address] [facility] Start: 10-17-2023 [facility] Start: 10-17-2023 Verification routine [facility] Start: 10-17-2023 Admission procedure [facility] Start: 10-17-2023 Hospital admission, emergency, from emergency room, medical nature [facility] Start: 10-17-2023 [facility] Start: 09-25-2023 Venous catheter care management [facility] Start: 09-25-2023 [facility] Start: 09-20-2023 [facility] Start: 09-06-2023 Venous catheter care management [facility] Start: 09-06-2023 [facility] Start: 08-28-2023 Behavioral Health Screening Behavioral Health Screening [facility] Start: 08-28-2023 Depression Assessment Depression Assessment [facility] Start: 08-28-2023 Medicare Advantage Annual Wellness Visit Medicare Advantage Annual Wellness Visit [facility] Start: 08-22-2023 [facility] Start: 08-22-2023 [facility] Start: 08-22-2023 Venous catheter care management [facility] Start: 08-16-2023 3 comp foot exam completed DIABETIC FOOT EXAM [facility] Start: 08-16-2023 BP CONTROLLED (<130/80) BP CONTROLLED (<130/80) [facility] Start: 08-16-2023 Diabetic foot examination Diabetic Foot Exam [facility] Start: 08-15-2023 End: 08-15-2023 Patient encounter procedure [facility] Start: 08-10-2023 Patient discharge [facility] Start: 08-10-2023 End: 08-10-2023 [facility] Start: 08-09-2023 Care planning and problem solving actions [facility] Start: 08-09-2023 Provision of activity privileges [facility] Start: 08-08-2023 [facility] Start: 08-08-2023 Blood chemistry [facility] Start: 08-08-2023 [facility] Start: 08-07-2023 Care planning and problem solving actions [facility] Start: 08-07-2023 Blood chemistry [facility] Start: 08-07-2023 Blood chemistry [facility] Start: 08-07-2023 Care planning and problem solving actions [facility] Start: 08-07-2023 Blood chemistry [facility] Start: 08-07-2023 Blood chemistry [facility] Start: 08-07-2023 Acetone [Presence] in Serum or Plasma [facility] Start: 08-07-2023 Gas panel - Arterial blood [facility] Start: 08-07-2023 Blood chemistry [facility] Start: 08-07-2023 Application of intermittent pneumatic compression device [facility] Start: 08-07-2023 Enteric precautions [facility] Start: 08-07-2023 Following clinical pathway protocol [facility] Start: 08-07-2023 Hemoglobin A1c/Hemoglobin.total in Blood [facility] Start: 08-07-2023 Lab findings surveillance [facility] Start: 08-07-2023 Notification of physician [facility] Start: 08-07-2023 Patient education [facility] Start: 08-07-2023 Taking nasal swab [facility] Start: 08-07-2023 Vital signs measurements [facility] Start: 08-07-2023 [facility] Start: 08-07-2023 Aspiration precautions [facility] Start: 08-07-2023 Blood chemistry [facility] Start: 08-07-2023 Admission procedure [facility] Start: 08-06-2023 Venous catheter care management [facility] Start: 08-06-2023 Gas panel - Venous blood [facility] Start: 08-06-2023 [facility] Start: 08-06-2023 Venous catheter care management [facility] Start: 07-27-2023 Hemoglobin A1c/Hemoglobin.total in Blood HBA1C [facility] Start: 06-26-2023 Venous catheter care management [facility] Start: 06-26-2023 [facility] Start: 06-25-2023 End: 06-25-2023 [facility] Start: 06-07-2023 BP CONTROLLED (<130/80) BP CONTROLLED (<130/80) [facility] Start: 05-10-2023 BP CONTROLLED (<130/80) BP CONTROLLED (<130/80) [facility] Start: 05-06-2023 Blood chemistry [facility] Start: 05-05-2023 Blood chemistry [facility] Start: 05-04-2023 Blood chemistry [facility] Start: 05-03-2023 Venous catheter care management [facility] Start: 05-03-2023 Blood chemistry [facility] Start: 05-02-2023 Blood chemistry [facility] Start: 05-01-2023 Blood chemistry [facility] Start: 04-30-2023 Blood chemistry [facility] Start: 04-29-2023 Patient discharge [facility] Start: 04-29-2023 Venous catheter care management [facility] Start: 04-28-2023 Care regimes management [facility] Start: 04-28-2023 Notification of physician [facility] Start: 04-28-2023 End: 04-28-2023 [facility] Start: 04-28-2023 Covid-19 Vaccine () Covid-19 Vaccine () [facility] Start: 04-28-2023 Influenza vaccination [facility] Start: 04-28-2023 Urine culture Urine Culture [facility] Start: 04-28-2023 [facility] Start: 04-27-2023 Following clinical pathway protocol [facility] Start: 04-27-2023 Ambulation without limitation [facility] Start: 04-27-2023 Assessment of risk of venous thromboembolism [facility] Start: 04-27-2023 Insertion of catheter into peripheral vein [facility] Start: 04-27-2023 Providing care according to standard [facility] Start: 04-27-2023 [facility] Start: 04-27-2023 Verification routine [facility] Start: 04-27-2023 Admission procedure [facility] Start: 04-27-2023 [facility] Start: 04-27-2023 Venous catheter care management [facility] Start: 04-27-2023 Consultation [facility] Start: 04-27-2023 Patient referral to dietitian [facility] Start: 04-23-2023 Venous catheter care management [facility] Start: 04-18-2023 Adult depression screening assessment DEPRESSION SCREENING [facility] Start: 04-18-2023 ANNUAL PCP TEAM CHRONIC DISEASE VISIT ANNUAL PCP TEAM CHRONIC DISEASE VISIT [facility] Start: 04-18-2023 BP CONTROLLED (<130/80) BP CONTROLLED (<130/80) [facility] Start: 02-14-2023 Hemoglobin A1c/Hemoglobin.total in Blood HBA1C [facility] Start: 01-25-2023 End: 03-27-2023 ALBUMIN/CREAT RATIO RND UR ALBUMIN/CREAT RATIO RND UR Lab Routine Type 1 diabetes mellitus with hyperglycemia, with long-term current use of insulin (HCC) Expected: 01/25/2023, Expires: 03/27/2023 [facility] Work Phone: Comment on above: Expected: 01/25/2023, Expires: Start: 10-04-2022 End: 10-04-2023 CBC W Auto Differential panel - Blood CBC auto differential Lab Routine Psoriasis vulgaris Encounter for long-term current use of high risk medication Expected: 10/04/2022 (Approximate), Expires: 10/04/2023 [facility] Work Phone: Comment on above: Expected: 10/04/2022 (Approximate), Expi res: 10/04/2023 Start: 10-04-2022 End: 10-04-2023 Comprehensive metabolic 1998 panel - Serum or Plasma Comprehensive metabolic panel Lab Routine Psoriasis vulgaris Encounter for long-term current use of high risk medication Expected: 10/04/2022 (Approximate), Expires: 10/04/2023 [facility] Comment on above: Expected: 10/04/2022 (Approximate), Expi res: 10/04/2023 Start: 10-04-2022 End: 10-04-2023 Hepatitis A virus IgM Ab [Presence] in Serum or Plasma by Immunoassay Hepatitis A antibody, IgM Lab Routine Psoriasis vulgaris Encounter for long-term current use of high risk medication Screening for viral disease Expected: 10/04/2022 (Approximate), Expires: 10/04/2023 [facility] Comment on above: Expected: 10/04/2022 (Approximate), Expi res: 10/04/2023 Start: 10-04-2022 End: 10-04-2023 Hepatitis B virus core IgM Ab [Presence] in Serum or Plasma by Immunoassay Hepatitis B core antibody, IgM Lab Routine Psoriasis vulgaris Encounter for long-term current use of high risk medication Screening for viral disease Expected: 10/04/2022 (Approximate), Expires: 10/04/2023 [facility] Comment on above: Expected: 10/04/2022 (Approximate), Expi res: 10/04/2023 Start: 10-04-2022 End: 10-04-2023 Hepatitis B virus surface Ab [Units/volume] in Serum or Plasma by Immunoassay Hepatitis B surface antibody Lab Routine Psoriasis vulgaris Encounter for long-term current use of high risk medication Screening for viral disease Expected: 10/04/2022 (Approximate), Expires: 10/04/2023 [facility] Comment on above: Expected: 10/04/2022 (Approximate), Expi res: 10/04/2023 Start: 10-04-2022 End: 10-04-2023 Hepatitis B virus surface Ag [Presence] in Serum or Plasma by Immunoassay Hepatitis B surface antigen Lab Routine Psoriasis vulgaris Encounter for long-term current use of high risk medication Screening for viral disease Expected: 10/04/2022 (Approximate), Expires: 10/04/2023 [facility] Comment on above: Expected: 10/04/2022 (Approximate), Expi res: 10/04/2023 Start: 10-04-2022 End: 10-04-2023 Hepatitis C virus Ab [Presence] in Serum or Plasma by Immunoassay Hepatitis C antibody Lab Routine Psoriasis vulgaris Encounter for long-term current use of high risk medication Screening for viral disease Expected: 10/04/2022 (Approximate), Expires: 10/04/2023 [facility] Comment on above: Expected: 10/04/2022 (Approximate), Expi res: 10/04/2023 Start: 10-04-2022 End: 10-04-2023 HIV 1+2 Ab+HIV1 p24 Ag [Presence] in Serum or Plasma by Immunoassay HIV-1 and HIV-2 Antigen-Antibody Screen Lab Routine Psoriasis vulgaris Encounter for long-term current use of high risk medication Screening for viral disease Expected: 10/04/2022 (Approximate), Expires: 10/04/2023 [facility] Comment on above: Expected: 10/04/2022 (Approximate), Expi res: 10/04/2023 Start: 10-04-2022 End: 10-04-2023 QUANTIFERON TB GOLD QUANTIFERON TB GOLD Lab Routine Psoriasis vulgaris Encounter for long-term current use of high risk medication Expected: 10/04/2022 (Approximate), Expires: 10/04/2023 [facility] Comment on above: Expected: 10/04/2022 (Approximate), Expi res: 10/04/2023 Start: 08-28-2022 DEPRESSION ASSESSMENT DEPRESSION ASSESSMENT [facility] Start: 07-11-2022 End: 09-10-2022 Hemoglobin A1c in Blood HGB A1C Lab Routine Type 1 diabetes mellitus with hyperglycemia (HCC) Insulin pump status Expected: 07/11/2022, Expires: 09/10/2022 [facility] Work Phone: Comment on above: Expected: 07/11/2022, Expires: 3 Start: 07-11-2022 End: 09-10-2022 THYROID PEROXIDASE ANTIBODY BLOOD THYROID PEROXIDASE ANTIBODY BLOOD Lab Routine Type 1 diabetes mellitus with hyperglycemia (HCC) Insulin pump status Abnormal results of thyroid function studies Expected: 07/11/2022, Expires: 09/10/2022 [facility] Phone: Comment on above: Expected: 07/11/2022, Expires: 3 Start: 07-11-2022 End: 09-10-2022 Thyrotropin [Units/volume] in Serum or Plasma TSH BLD Lab Routine Type 1 diabetes mellitus with hyperglycemia (HCC) Insulin pump status Abnormal results of thyroid function studies Expected: 07/11/2022, Expires: 09/10/2022 [facility] Work Phone: Comment on above: Expected: 07/11/2022, Expires: 3 Start: 07-11-2022 End: 09-10-2022 Thyroxine (T4) free [Mass/volume] in Serum or Plasma T4 FREE/FREE THYROX Lab Routine Type 1 diabetes mellitus with hyperglycemia (HCC) Insulin pump status Abnormal results of thyroid function studies Expected: 07/11/2022, Expires: 09/10/2022 [facility] Work Phone: Comment on above: Expected: 07/11/2022, Expires: 3 Start: 07-02-2022 Hemoglobin A1c/Hemoglobin.total in Blood HBA1C [facility] Start: 04-28-2022 Influenza vaccination [facility] Start: 04-18-2022 End: 06-18-2022 Chlamydia trachomatis+Neisseria gonorrhoeae DNA [Presence] in Urine by DANIEL with probe detection GC/CHLAMYDIA AMPLIF, URINE Microbiology Routine Menstrual irregularity Screening for STD (sexually transmitted disease) Expected: 04/18/2022, Expires: 06/18/2022 [facility] Work Phone: Comment on above: Expected: 04/18/2022, Expires: 2 Start: 04-18-2022 End: 06-18-2022 Choriogonadotropin ( test) [Presence] in Urine HCG QUAL UR Lab Routine Menstrual irregularity Expected: 04/18/2022, Expires: 06/18/2022 [facility] Work Phone: Comment on above: Expected: 04/18/2022, Expires: 2 Start: 02-04-2022 Hepatitis B surface antibody level LDL CHOLESTEROL [facility] Start: 08-28-2021 DEPRESSION ASSESSMENT DEPRESSION ASSESSMENT [facility] Start: 05-27-2021 Hemoglobin A1c/Hemoglobin.total in Blood HBA1C [facility] Start: 12-23-2020 Glaucoma screening Dilated Retinal Exam [facility] Start: 12-23-2020 Hepatitis C antibody, confirmatory test DILATED RETINAL EXAM [facility] Start: 03-30-2019 PAP TESTING PAP TESTING [facility] Start: 03-21-2018 Diabetes: Urine Albumin-Creatinine Ratio for Kidney Health Diabetes: Urine Albumin-Creatinine Ratio for Kidney Health [facility] Start: 03-21-2018 Hepatitis B screening URINE ALBUMIN:CREATININE RATIO [facility] Start: 11-23-2016 Adult depression screening assessment DEPRESSION SCREENING [facility] Start: 11-12-2016 3 comp foot exam completed DIABETIC FOOT EXAM [facility] Start: 01-01-2014 PNEUMOCOCCAL (2 - PCV) PNEUMOCOCCAL (2 - PCV) [facility] Start: 01-01-2014 Pneumococcal vaccination [facility] Start: 2013 HEPATITIS B (1 of 3 - Risk 3-dose series) HEPATITIS B (1 of 3 - Risk 3-dose series) [facility] Start: 2013 Hepatitis B Vaccine (1 of 3 - 19+ 3-dose series) Hepatitis B Vaccine (1 of 3 - 19+ 3-dose series) [facility] Start: 2013 Hepatitis B Vaccines (1 of 3 - 19+ 3-dose series) Hepatitis B Vaccines (1 of 3 - 19+ 3-dose series) [facility] Start: 2013 Urine screening for protein Diabetes: Urine Protein Screening [facility] Start: 12-11-2012 HPV Vaccine (3 - 3-dose series) HPV Vaccine (3 - 3-dose series) [facility] Start: 12-11-2012 HPV Vaccines (3 - 3-dose series) HPV Vaccines (3 - 3-dose series) [facility] Start: 11-06-2012 Hepatitis A Vaccines (2 of 2 - 2-dose series) Hepatitis A Vaccines (2 of 2 - 2-dose series) [facility] Start: 2012 ANNUAL PCP TEAM CHRONIC DISEASE VISIT ANNUAL PCP TEAM CHRONIC DISEASE VISIT [facility] Start: 2012 BP CONTROLLED (<130/80) BP CONTROLLED (<130/80) [facility] Start: 2012 Depression Screening Depression Screening [facility] Start: 2012 Diabetes: Urine Albumin-Creatinine Ratio for Kidney Health Diabetes: Urine Albumin-Creatinine Ratio for Kidney Health [facility] Start: 2012 Hepatitis B surface antibody level LDL CHOLESTEROL [facility] Start: 2007 Varicella vaccination Varicella Vaccines (1 of 2 - 13+ 2-dose series) [facility] Start: 2006 Depression Monitoring Depression Monitoring [facility] Start: 2006 Depression Screening Depression Screening [facility] Start: 2004 Diabetic foot examination Diabetes: Foot Exam [facility] Start: 2004 Glaucoma screening Diabetes: Retinopathy Screening [facility] Start: 2004 Preventive dental service Diabetes: Dental Exam [facility] Start: 2000 PNEUMOCOCCAL (1 - PCV) PNEUMOCOCCAL (1 - PCV) [facility] Start: 1999 COVID-19 VACCINE (#1) COVID-19 VACCINE (#1) [facility] Start: 1999 COVID-19 VACCINE (1) COVID-19 VACCINE (1) [facility] Start: 1995 MMR Vaccines (1 of 1 - Standard series) MMR Vaccines (1 of 1 - Standard series) [facility] Start: 1995 Varicella vaccination Varicella Vaccines (1 of 2 - 2-dose childhood series) [facility] Start: 01-27-1995 COVID-19 VACCINE (#1) COVID-19 VACCINE (#1) [facility] Start: 1994 Hemoglobin A1c measurement Diabetes: Hemoglobin A1C [facility]: 1994 HEPATITIS B (1 of 3 - 3-dose series) HEPATITIS B (1 of 3 - 3-dose series) [facility] Start: 1994 Hepatitis B Vaccine (1 of 3 - 3-dose series) Hepatitis B Vaccine (1 of 3 - 3-dose series) [facility] Start: 1994 Hepatitis B Vaccines (1 of 3 - 3-dose series) Hepatitis B Vaccines (1 of 3 - 3-dose series) [facility] Start: 1994 Lipid panel Lipid Panel [facility] Start: 1994 Medicare Advantage Annual Wellness Visit (AWV) Medicare Advantage Annual Wellness Visit (AWV) [facility] gap [facility] gap [facility] Anion gap measurement [facility] An[facility] gap measurement [facility] An[facility] gap measurement [facility] Anion gap measurement [facility] Anion gap measurement [facility] Anion gap measurement [facility] Anion gap measurement [facility] Anion gap measurement [facility] Bacteria identified in Urine by Culture URINE CULTURE Microbiology Routine Left flank pain Ordered: 01/25/2023 [facility] Work Phone: Comment on above: Ordered: 01/25/2023 BUN/Creatinine ratio [facility] BUN/Creatinine ratio [facility] BUN/Creatinine ratio [facility] BUN/Creatinine ratio [facility] BUN/Creatinine ratio [facility] BUN/Creatinine ratio [facility] BUN[facility]Creatinine ratio [facility] BUN/Creatinine ratio [facility] BUN/Creatinine ratio [facility] BUN/Creatinine ratio [facility] BUN/Creatinine ratio [facility] BUN/Creatinine ratio [facility] BUN/Creatinine ratio [facility] BUN/Creatinine ratio [facility] Calcium [Mass/volume ] in Serum or Plasma [facility] Calcium [Mass/volume ] in Serum or Plasma [facility] Calcium [Mass/volume ] in Serum or Plasma [facility] Calcium [Mass/volume ] in Serum or Plasma [facility] Calcium [Mass/volume ] in Serum or Plasma [facility] Calcium [Mass/volume ] in Serum or Plasma [facility] Calcium [Mass/volume ] in Serum or Plasma [facility] Calcium [Mass/volume ] in Serum or Plasma [facility] Calcium [Mass/volume ] in Serum or Plasma [facility] Calcium [Mass/volume ] in Serum or Plasma [facility] Calcium [Mass/volume ] in Serum or Plasma [facility] Calcium [Mass/volume ] in Serum or Plasma [facility] Calcium [Mass/volume ] in Serum or Plasma [facility] Calcium [Mass/volume ] in Serum or Plasma [facility] Carbon dioxide, tota l [Moles/volume] in Serum or Plasma [facility] Carbon dioxide, tota l [Moles/volume] in Serum or Plasma [facility] Carbon dioxide, tota l [Moles/volume] in Serum or Plasma [facility] Carbon dioxide, tota l [Moles/volume] in Serum or Plasma [facility] Carbon dioxide, tota l [Moles/volume] in Serum or Plasma [facility] Carbon dioxide, tota l [Moles/volume] in Serum or Plasma [facility] Carbon dioxide, tota l [Moles/volume] in Serum or Plasma [facility] Carbon dioxide, tota l [Moles/volume] in Serum or Plasma [facility] Carbon dioxide, tota l [Moles/volume] in Serum or Plasma [facility] Carbon dioxide, tota l [Moles/volume] in Serum or Plasma [facility] Carbon dioxide, tota l [Moles/volume] in Serum or Plasma [facility] Carbon dioxide, tota l [Moles/volume] in Serum or Plasma [facility] Carbon dioxide, tota l [Moles/volume] in Serum or Plasma [facility] Carbon dioxide, tota l [Moles/volume] in Serum or Plasma [facility] Chlamydia trachomatis+Neisseria gonorrhoeae DNA [Presence] in Unspecified specimen by DANIEL with probe detection GC/CHLAMYDIA DNA DET Lab Routine Gonorrhea Screen for sexually transmitted diseases Ordered: 06/07/2022 [facility] Work Phone: Comment on above: Ordered: 06/07/2022 Chlamydia trachomatis+Neisseria gonorrhoeae DNA [Presence] in Unspecified specimen by DANIEL with probe detection GONORRHEA/CHLAMYDIA NAAT Lab Routine Encounter for gynecological examination (general) (routine) without abnormal findings Encounter for screening for malignant neoplasm of cervix Screening for human papillomavirus (HPV) Irregular menstrual bleeding Routine screening for STI (sexually transmitted infection) 07/10/2024 12:13 PM [facility] Chloride [Moles/volu me] in Serum or Plasma [facility] Chloride [Moles/volu me] in Serum or Plasma [facility] Chloride [Moles/volu me] in Serum or Plasma [facility] Chloride [Moles/volu me] in Serum or Plasma [facility] Chloride [Moles/volu me] in Serum or Plasma [facility] Chloride [Moles/volu me] in Serum or Plasma [facility] Chloride [Moles/volu me] in Serum or Plasma [facility] Chloride [Moles/volu me] in Serum or Plasma [facility] Chloride [Moles/volu me] in Serum or Plasma [facility] Chloride [Moles/volu me] in Serum or Plasma [facility] Chloride [Moles/volu me] in Serum or Plasma [facility] Chloride [Moles/volu me] in Serum or Plasma [facility] Chloride [Moles/volu me] in Serum or Plasma [facility] Chloride [Moles/volu me] in Serum or Plasma [facility] Clostridioides diffi cile DNA [Presence] in Unspecified specimen by DANIEL with probe detection [facility] Creatinine [Moles/vo lume] in Serum or Plasma [facility] Creatinine [Moles/vo lume] in Serum or Plasma [facility] Creatinine [Moles/vo lume] in Serum or Plasma [facility] Creatinine [Moles/vo lume] in Serum or Plasma [facility] Creatinine [Moles/vo lume] in Serum or Plasma [facility] Creatinine [Moles/vo lume] in Serum or Plasma [facility] Creatinine [Moles/vo lume] in Serum or Plasma [facility] Creatinine [Moles/vo lume] in Serum or Plasma [facility] Creatinine [Moles/vo lume] in Serum or Plasma [facility] Creatinine [Moles/vo lume] in Serum or Plasma [facility] Creatinine [Moles/vo lume] in Serum or Plasma [facility] Creatinine [Moles/vo lume] in Serum or Plasma [facility] Creatinine [Moles/vo lume] in Serum or Plasma [facility] Creatinine [Moles/vo lume] in Serum or Plasma [facility] Gastrointestinal pathogens panel - Stool by DANIEL with probe detection [facility] Glucose [Mass/volume ] in Serum or Plasma [facility] Glucose [Mass/volume ] in Serum or Plasma [facility] Glucose [Mass/volume ] in Serum or Plasma [facility] Glucose [Mass/volume ] in Serum or Plasma [facility] Glucose [Mass/volume ] in Serum or Plasma [facility] Glucose [Mass/volume ] in Serum or Plasma [facility] Glucose [Mass/volume ] in Serum or Plasma [facility] Glucose [Mass/volume ] in Serum or Plasma [facility] Glucose [Mass/volume ] in Serum or Plasma [facility] Glucose [Mass/volume ] in Serum or Plasma [facility] Glucose [Mass/volume ] in Serum or Plasma [facility] Glucose [Mass/volume ] in Serum or Plasma [facility] Glucose [Mass/volume ] in Serum or Plasma [facility] Glucose [Mass/volume ] in Serum or Plasma [facility] Hematocrit [Volume Fraction] of Blood [facility] Hematocrit [Volume Fraction] of Blood [facility] Hematocrit [Volume Fraction] of Blood [facility] Hematocrit [Volume Fraction] of Blood [facility] Hematocrit [Volume Fraction] of Blood [facility] Hematocrit [Volume Fraction] of Blood [facility] Hematocrit [Volume Fraction] of Blood [facility] Hemoglobin [Mass/vol ume] in Blood [facility] Hemoglobin [Mass/vol ume] in Blood [facility] Hemoglobin [Mass/vol ume] in Blood [facility] Hemoglobin [Mass/vol ume] in Blood [facility] Hemoglobin [Mass/vol ume] in Blood [facility] Hemoglobin [Mass/vol ume] in Blood [facility] Hemoglobin [Mass/vol ume] in Blood [facility] Hemoglobin A1c/Hemoglobin.total in Blood HEMOGLOBIN A1C (POC) Lab Routine Type 1 diabetes mellitus with hyperglycemia, with long-term current use of insulin (HCC) Ordered: 03/12/2024 [facility] Work Phone: Comment on above: Ordered: 03/12/2024 Lactoferrin [Presenc e] in Stool by Immunoassay [facility] Leukocytes [#/volume ] in Blood [facility] Leukocytes [#/volume ] in Blood [facility] Leukocytes [#/volume ] in Blood [facility] Leukocytes [#/volume ] in Blood [facility] Leukocytes [#/volume ] in Blood [facility] Leukocytes [#/volume ] in Blood [facility] Leukocytes [#/volume ] in Blood [facility] Magnesium [Mass/volu me] in Serum or Plasma [facility] Mean corpuscular hemoglobin concentration determination [facility] Mean corpuscular hemoglobin concentration determination [facility] Mean corpuscular hemoglobin concentration determination [facility] Mean corpuscular hemoglobin concentration determination [facility] Mean corpuscular hemoglobin concentration determination [facility] Mean corpuscular hemoglobin concentration determination [facility] Mean corpuscular hemoglobin concentration determination [facility] Mean corpuscular hemoglobin determination [facility] Mean corpuscular hemoglobin determination [facility] Mean corpuscular hemoglobin determination [facility] Mean corpuscular hemoglobin determination [facility] Mean corpuscular hemoglobin determination [facility] Mean corpuscular hemoglobin determination [facility] Mean corpuscular hemoglobin determination [facility] Measurement of renal function [facility] Measurement of renal function [facility] Measurement of renal function [facility] Measurement of renal function [facility] Measurement of renal function [facility] Measurement of renal function [facility] Measurement of renal function [facility] Measurement of renal function [facility] Measurement of renal function [facility] Measurement of renal function [facility] Measurement of renal function [facility] Measurement of renal function [facility] Measurement of renal function [facility] Measurement of renal function [facility] Neutrophil count [facility] Neutrophil count [facility] Neutrophil count [facility] Neutrophil count [facility] Neutrophil count [facility] Neutrophil count [facility] Neutrophil count [facility] Neutrophil percent differential count [facility] Neutrophil percent differential count [facility] Neutrophil percent differential count [facility] Neutrophil percent differential count [facility] Neutrophil percent differential count [facility] Neutrophil percent differential count [facility] Neutrophil percent differential count [facility] Ova and parasites identified in Unspecified specimen by Light microscopy [facility] PAP TEST PAP TEST Lab [facility] [place] Encounter for screening for malignant neoplasm of cervix Screening for human papillomavirus (HPV) 07/10/2024 12:13 PM [facility] Patient Education [facility] Work Phone: Patient referral [facility] Work Phone: Platelets [#/volume] in Blood [facility] Platelets [#/volume] in Blood [facility] Platelets [#/volume] in Blood [facility] Platelets [#/volume] in Blood [facility] Platelets [#/volume] in Blood [facility] Platelets [#/volume] in Blood [facility] Platelets [#/volume] in Blood [facility] Potassium [Moles/vol ume] in Serum or Plasma [facility] Potassium [Moles/vol ume] in Serum or Plasma [facility] Potassium [Moles/vol ume] in Serum or Plasma [facility] Potassium [Moles/vol ume] in Serum or Plasma [facility] Potassium [Moles/vol ume] in Serum or Plasma [facility] Potassium [Moles/vol ume] in Serum or Plasma [facility] Potassium [Moles/vol ume] in Serum or Plasma [facility] Potassium [Moles/vol ume] in Serum or Plasma [facility] Potassium [Moles/vol ume] in Serum or Plasma [facility] Potassium [Moles/vol ume] in Serum or Plasma [facility] Potassium [Moles/vol ume] in Serum or Plasma [facility] Potassium [Moles/vol ume] in Serum or Plasma [facility] Potassium [Moles/vol ume] in Serum or Plasma [facility] Potassium [Moles/vol ume] in Serum or Plasma [facility] Red blood cell count [facility] Red blood cell count [facility] Red blood cell count [facility] Red blood cell count [facility] Red blood cell count [facility] Red blood cell count [facility] Red blood cell count [facility] Red cell distributio n width determination [facility] Red cell distributio n width determination [facility] Red cell distributio n width determination [facility] Red cell distributio n width determination [facility] Red cell distributio n width determination [facility] Red cell distributio n width determination [facility] Red cell distributio n width determination [facility] Respiratory pathogen s DNA and RNA panel - Respiratory specimen by DANIEL with probe detection [facility] Sodium [Moles/volume ] in Serum or Plasma [facility] Sodium [Moles/volume ] in Serum or Plasma [facility] Sodium [Moles/volume ] in Serum or Plasma [facility] Sodium [Moles/volume ] in Serum or Plasma [facility] Sodium [Moles/volume ] in Serum or Plasma [facility] Sodium [Moles/volume ] in Serum or Plasma [facility] Sodium [Moles/volume ] in Serum or Plasma [facility] Sodium [Moles/volume ] in Serum or Plasma [facility] Sodium [Moles/volume ] in Serum or Plasma [facility] Sodium [Moles/volume ] in Serum or Plasma [facility] Sodium [Moles/volume ] in Serum or Plasma [facility] Sodium [Moles/volume ] in Serum or Plasma [facility] Sodium [Moles/volume ] in Serum or Plasma [facility] Sodium [Moles/volume ] in Serum or Plasma [facility] T VAGINALIS AMPLIFICATION T VAGI NALIS AMPLIFICATION Lab Routine Screening for STD (sexually transmitted disease) Ordered: 04/18/2022 [facility] Work Phone: Comment on above: Ordered: 04/18/2022 TRICHOMONAS VAGINALI S NAAT TRICHOMONAS VAGINALIS NAAT Lab Routine Encounter for gynecological examination (general) (routine) without abnormal findings Encounter for screening for malignant neoplasm of cervix Screening for human papillomavirus (HPV) Irregular menstrual bleeding Routine screening for STI (sexually transmitted infection) 07/10/2024 12:13 PM EST [facility] Urea nitrogen [Mass/volume] in Serum or Plasma [facility] Urea nitrogen [Mass/volume] in Serum or Plasma [facility] Urea nitrogen [Mass/volume] in Serum or Plasma [facility] Urea nitrogen [Mass/volume] in Serum or Plasma [facility] Urea nitrogen [Mass/volume] in Serum or Plasma [facility] Urea nitrogen [Mass/volume] in Serum or Plasma [facility] Urea nitrogen [Mass/volume] in Serum or Plasma [facility] Urea nitrogen [Mass/volume] in Serum or Plasma [facility] Urea nitrogen [Mass/volume] in Serum or Plasma [facility] Urea nitrogen [Mass/volume] in Serum or Plasma [facility] Urea nitrogen [Mass/volume] in Serum or Plasma [facility] Urea nitrogen [Mass/volume] in Serum or Plasma [facility] Urea nitrogen [Mass/volume] in Serum or Plasma [facility] Urea nitrogen [Mass/volume] in Serum or Plasma [facility] Immunizations Immunization Date Immunization Notes Care Provider [facility] 11-05-2019 influenza, injectabl e, quadrivalent, preservative free Autumn Valadez AOC DIRECTOR INTELLIGENCE OFFICER.[facility] Work Phone: [facility] Work Phone: 11-05-2019 influenza virus vacc ine, unspecified formulation Leesa Huddleston PA-C Work Phone: [facility] 06-14-2016 influenza, seasonal, injectable Autumn Valadez AOC DIRECTOR INTELLIGENCE OFFICER.PIE CRIMPING MACHINE OPERATOR Work Phone: [facility] Work Phone: 05-30-2016 influenza nasal, unspecified formulation Autumn Rory AOC DIRECTOR INTELLIGENCE OFFICER.PIE CRIMPING MACHINE OPERATOR Work Phone: [facility] Work Phone: 05-30-2016 influenza virus vacc ine, unspecified formulation ANITA COMER MD [facility] 06-05-2015 influenza, seasonal, injectable, preservative free Autumn Valadez AOC DIRECTOR INTELLIGENCE OFFICER.[facility] Work Phone: [facility] Work Phone: 05-23-2014 influenza virus vacc ine, unspecified formulation Leesa Huddleston JOCELYNE-C Work Phone: [facility] 05-23-2014 influenza, seasonal, injectable [facility] Provider [facility] Work Phone: 04-16-2014 tetanus toxoid, redu luis eduardo diphtheria toxoid, and acellular pertussis vaccine, adsorbed [facility] Provider [facility] 01-01-2013 pneumococcal polysaccharide vaccine, 23 valent Autumn aVladez AOC DIRECTOR INTELLIGENCE OFFICER.[facility] Work Phone: [facility] Work Phone: 08-11-2012 human papilloma viru s vaccine, quadrivalent Autumn Valadez AOC DIRECTOR INTELLIGENCE OFFICER.[facility] Work Phone: [facility] Work Phone: 08-11-2012 HPV, unspecified formulation Leesatavares Huddleston JOCELYNE-Gilberto Work Phone: [facility] 06-12-2012 human papilloma viru s vaccine, quadrivalent Autumn Valadez AOC DIRECTOR INTELLIGENCE OFFICER.[facility] Work Phone: [facility] Work Phone: 05-09-2012 hepatitis A vaccine, pediatric/adolescent dosage, 2 dose schedule Autumn Valadez APRN.[facility] Work Phone: [facility] Work Phone: 05-09-2012 hepatitis A and hepatitis B vaccine Leesatavares Huddleston JOCELYNE-Gilberto Work Phone: [facility] 11-03-2009 meningococcal polysaccharide (groups A, C, Y and W-135) diphtheria toxoid conjugate vaccine (MCV4P) Autumn Valadez APRN.[facility] Work Phone: [facility] Work Phone: 11-03-2009 tetanus toxoid, redu luis eduardo diphtheria toxoid, and acellular pertussis vaccine, adsorbed Autumn Valadez AOC DIRECTOR INTELLIGENCE OFFICER.[facility] Work Phone: [facility] Work Phone: Payers Date Payer Category Payer Self-pay 2022 Medicare O JANIS JONESO MEDICARE [id number] 2019 Medicare (Managed Care) LOUISE WRIGHTDESTINY MEDICARE [id number] 2019 Medicare [id number] 2017 Medicaid [id number]. 1.13.159.2. [id number] 2017 Medicare [id number] 1.2.840.491016.1.13.159.2. [id number] 2017 Medicare 1.2.840.940274. 1.13.159.2. 7.3.483444.315 2012 Medicaid [id number] 1994 Unknown [id number] 2.16.840.1.300425.3.579.2. 903 Unknown [id number] 2.16840.1.176620.3.579.2. 462 Unknown [id number] 2.16840.1.960104.3.579.2. 462 Unknown [id number] 2.16.840.1.265487.3.579.2. 462 Unknown [id number] 2.840.1.057419.3.579.2. 462 Unknown [id number] 2.840.1.634388.3.579.2. 462 Unknown [id number] 2.840.1.866671.3.579.2. 462 Unknown [id number] 2.840.1.924391.3.579.2. 462 Unknown [id number] 2.840.1.430225.3.579.2. 462 Unknown [id number] 2.840.1.127368.3.579.2. 462 Unknown [id number] 2.840.1.404948.3.579.2. 462 Unknown [id number] 2.840.1.827470.3.579.2. 462 Unknown [id number] 2.840.1.200233.3.579.2. 462 Unknown [id number] 2.840.1.518672.3.579.2. 462 Unknown [id number] 2.840.1.688753.3.579.2. 462 Unknown [id number] 2.840.1.892841.3.579.2. 462 Unknown [id number] 2.840.1.866842.3.579.2. 462 Unknown [id number] 2.840.1.138644.3.579.2. 462 Unknown [id number] 2.840.1.279099.3.579.2. 462 Unknown [id number] 2.16.840.1.600147.3.579.2. 462 Unknown [id number] 2.16.840.1.926454.3.579.2. 462 Unknown [id number] 2.16.840.1.949675.3.579.2. 462 Unknown [id number] 2.16.840.1.080976.3.579.2. 462 Unknown [id number] 2.16.840.1.201121.3.579.2. 462 Unknown [id number] 2.16.840.1.704983.3.579.2. 462 Unknown [id number] 2.16.840.1.420796.3.579.2. 462 Unknown [id number] 2.16.840.1.873382.3.579.2. 462 Unknown [id number] 2.16.840.1.078731.3.579.2. 462 Unknown [id number] 2.16.840.1.457299.3.579.2. 462 Unknown [id number] 2.16.840.1.791868.3.579.2. 462 Unknown [id number] 2.16.840.1.200115.3.579.2. 462 Unknown [id number] 2.16.840.1.281122.3.579.2. 462 Unknown [id number] 2.16.840.1.691428.3.579.2. 462 Unknown [id number] 2.16.840.1.931708.3.579.2. 462 Unknown [id number] 2.16.840.1.276005.3.579.2. 462 Unknown [id number] 2.16.840.1.506357.3.579.2. 462 Unknown [id number] 2.16.840.1.380074.3.579.2. 462 Unknown [id number] 2.16.840.1.730790.3.579.2. 462 Unknown [id number] 2.840.1.460356.3.579.2. 462 Unknown [id number] 2.840.1.552833.3.579.2. 462 Unknown [id number] 2.840.1.824893.3.579.2. 462 Unknown [id number] 2.840.1.236116.3.579.2. 462 Unknown [id number] 2.840.1.978952.3.579.2. 462 Unknown [id number] 2.840.1.780194.3.579.2. 462 Unknown [id number] 2.840.1.395404.3.579.2. 462 Unknown [id number] 2.840.1.086710.3.579.2. 462 Unknown [id number] 2.840.1.871963.3.579.2. 462 Unknown [id number] 2.840.1.394084.3.579.2. 462 Unknown [id number] 2.840.1.480899.3.579.2. 462 Unknown [id number] 2.840.1.816650.3.579.2. 462 Unknown [id number] 2.840.1.512157.3.579.2. 462 Unknown [id number] 2.840.1.299111.3.579.2. 462 Unknown [id number] 2.840.1.427684.3.579.2. 462 Unknown [id number] 2.840.1.625188.3.579.2. 462 Unknown [id number] 2.840.1.131956.3.579.2. 462 Unknown [id number] 2.840.1.569346.3.579.2. 462 Unknown [id number] 2.840.1.083546.3.579.2. 462 Unknown [id number] 2.16.840.1.668667.3.579.2. 462 Unknown [id number] 2.16.840.1.358968.3.579.2. 462 Social History Date Type Detail Facility Start: 12-31-2019 End: 07-10-2024 Tobacco smoking status NHIS Ex-smoker [facility] Start: 06-28-2011 End: 06-28-2019 History of tobacco use Current smoker [facility] Start: 06-28-2011 End: 06-28-2019 History of tobacco use Cigarette Smoker [facility] Start: 12-31-2019 End: 11-14-2023 Cigarettes smoked current (pack per day) - Reported 0.3 [facility] Start: 12-31-2019 End: 07-10-2024 Tobacco use and exposure Smokeless tobacco non-user [facility] Start: 11-25-2020 End: 10-22-2022 Alcohol intake Current non-drinker of alcohol (finding) [facility] Start: 11-02-2020 End: 02-03-2023 History SDOH Social Connections Phone 5 [facility] Start: 11-02-2020 End: 02-03-2023 History SDOH Social Connections Caodaism 1 [facility] Start: 11-02-2020 End: 02-03-2023 History SDOH Social Connections Membership 2 [facility] Start: 11-02-2020 History SDOH Social Connections Living 7 [facility] Start: 11-02-2020 History SDOH Physica l Activity DPW 4 [facility] Start: 11-02-2020 History SDOH Physica l Activity MPS 3 [facility] Start: 1995 Sex Assigned At Female C [facility] Start: 04-26-2023 End: 08-07-2023 Tobacco smoking status Tobacco smoking consumption unknown (finding) [facility] Sex Assigned At Sex [facility] Start: 02-25-2022 End: 10-04-2022 Exposure to SARS-CoV-2 (event) Not sure [facility] Start: 12-08-2022 End: 07-19-2024 Alcohol intake Current drinker of alcohol (finding) [facility] Start: 12-08-2022 Education 13 [facility] Start: 12-08-2022 Alcohol Comment very rarely [facility] Start: 03-20-2023 [facility] Start: 03-20-2023 End: 11-14-2023 Tobacco use panel [facility] Start: 03-20-2023 Alcohol Comment occasional [facility] Start: 1995 Sex Assigned At Not on file S [facility] Start: 10-30-2020 Gender identity Identifies as female gender (finding) [facility] Start: 10-30-2020 Sexual orientation Bisexual (finding ) [facility] Start: 01-18-2021 End: 11-14-2023 Alcohol intake Ex-drinker (finding) [facility] Do you belong to any clubs or organizations such as buddhism groups, unions, fraternal or athletic groups, or school groups? No [facility] Are you now , , , , never or living with a partner? Never [facility] How hard is it for y ou to pay for the very basics like food, housing, medical care, and heating Not hard at all [facility] Do you feel stress - tense, restless, nervous, or anxious, or unable to sleep at night because your mind is troubled all the time - these days [OSQ] Not at all [facility] (I/We) worried wheth er (my/our) food would run out before (I/we) got money to buy more. Never true [facility] In the past 12 month s, was there a time when you were not able to pay the mortgage or rent on time? Yes [facility] Start: 03-28-2022 Sex Female (finding) [facility] NEGATED: Highlighted row [facility] Medical Equipment Procedure Code Equipment Code Equipment Original Text Equipment Identifier Dates Graft Vasc 30cm 28mm [facility] [address] - [id number] Start: 12-09-2014 Comment on above: Description: ascendi ng aorta Slv Scler 30mm 2.4mm 1.5mm Dinorah - [id number] Start: 10-29-2012 Comment on above: Description: Style # 72 Silicone Sleeve Strip Scler [id number] Dinorah Strl - [id number]_[facility] Start: 10-29-2012 Comment on above: Description: Style 4 050 Gas Io Ispan Vsn Sys 125gm Sf6 - [id number]_[facility] Start: 10-29-2012 Comment on above: Description: SF6 gas 22% Galva Cv 6x6in Thk1.65mm Ptfe - [id number]_[facility] Start: 12-09-2014 Lens Iol +15.5 Mary Jo 13mm 5.5mm - [id number]_[facility] Start: 05-14-2014 [id number], [id number], [id number], [id number], [id number], [id number], [id number] Start: 05-18-2020 End: 06-25-2025 Comment on above: Use as instructed to check blood glucose 7 times daily. 10 x daily DX Code: O24.011 on insulin RUFINA voucher has been faxed Use as instructed to check blood glucose 5 times daily. E10.65 Use as instructed to test blood sugar 4 times daily. E10.65 Pen Needle, Diabetic (Ultra-Thin Ii Ins Pen [place]) 29 gauge x 1/2 needle Start: 08-10-2023 Pen Needle, Diabetic (Ultra-Thin Ii Ins Pen [place]) 29 gauge x 1/2 needle Start: 08-10-2023 Pen Needle, Diabetic (Ultra-Thin Ii Ins Pen [place]) 29 gauge x 1/2 needle Start: 08-10-2023 Pen Needle, Diabetic (Ultra-Thin Ii Ins Pen [place]) 29 gauge x 1/2 needle Start: 08-10-2023 Pen Needle, Diabetic (Ultra-Thin Ii Ins Pen [place]) 29 gauge x 1/2 needle Start: 08-10-2023 Pen Needle, Diabetic (Ultra-Thin Ii Ins Pen [place]) 29 gauge x 1/2 needle Start: 08-10-2023 Loop Recorder-[id number] Reveal [id number]_[facility] Start: 09-15-2014 Goals Date Patient Goal Desired Activity /State Personal health goal Functional Status Date Assessment Result Facility 10-18-2023 Functional status Ambulates [facility] Work Phone: 08-10-2023 Functional status Up ad narendra [facility] Work Phone: 04-29-2023 Functional status Ambulates;Bedr est;Bathro om Privilege [facility] Work Phone: 02-04-2023 Are you deaf, or do you have serious difficulty hearing No 02/04/2023 2:39 PM EDT Jhoana Colunga RN No [facility] 02-04-2023 Are you blind, or do you have serious difficulty seeing, even when wearing glasses No 02/04/2023 2:39 PM Jhoana Mart, STIVEN No [facility] 02-04-2023 Do you have serious difficulty walking or climbing stairs No 02/04/2023 2:39 PM EDJhoana Martinez, STIVEN No [facility] 02-04-2023 Do you have difficul ty dressing or bathing No 02/04/2023 2:39 PM EDJhoana Martinez, STIVEN No [facility] 02-04-2023 Because of a physica l, mental, or emotional condition, do you have difficulty doing errands alone such as visiting a physician's office or shopping No 02/04/2023 2:39 PM SHOAIBT Jhoana Colunga, STIVEN No [facility] Mental Status Date Assessment Result Facility 10-17-2023 Cognitive function Awake;Alert;Appropriat e [facility] Work Phone: 09-20-2023 Cognitive function Level Of Cons ciousness Awake;Alert;Appropriate;Fol lows Commands [facility] Work Phone: 08-10-2023 Cognitive function Voice/Name [facility] Work Phone: 04-29-2023 Cognitive function Voice/Name [facility] Work Phone: 04-26-2023 Cognitive function Voice/Name [facility] Work Phone: 02-04-2023 Because of a physica l, mental, or emotional condition, do you have serious difficulty concentrating, remembering, or making decisions No 02/04/2023 2:39 PM EDT Jhoana Colunga RN No [facility] Clinical Notes 01-28-2016 to 03-19-2025 Mishel Ortez PA-C - 01/27/2025 1:00 PM EDTTelephone Encounter - Guero Hammer LPN - 11/11/2024 1:55 PM EDTTelephone Encounter - Guero Hammer LPN - 11/11/2024 1:55 PM EDT Note Date & Type Note Facility 03-19-2025 Note [facility] 03-17-2025 Note [facility] 03-08-2025 Note [facility] 03-05-2025 Note [facility] 02-21-2025 Note [facility] 01-27-2025 History of Present illness Narrative DATE OF SERVICE: 01/27/2025 PATIENT NAME: Kathleen Villa : 1995 AGE: 29 y.o. CLINIC NUMBER: [id number] Visit type: Established patient Chief Complaint Patient [...] Adhesive? Yes- adhesives. Social History: Born/raised in [place]. Excessive sun exposure: Yes Used tanning beds: [...] ingredient(s). 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 Patient advised to [...] for this encounter. documented in this encounter [facility] 01-26-2025 Note [facility] 12-16-2024 Note [facility] 11-11-2024 Telephone encounter Note Please let her know that her x-ray demonstrates a significantly large amount of stool throughout the colon. I am going to send in Trulance for her to try spoke with patient and she is aware of new Rx was sent to pharmacy. Guero Hammer LPN [facility] 11-11-2024 Miscellaneous Notes Please let her know that her x-ray demonstrates a significantly large amount of stool throughout the colon. I am going to send in Trulance for her to try spoke with patient and she is aware of new Rx was sent to pharmacy. Guero Hammer LPN documented in this encounter [facility] 11-11-2024 History of Present illness Narrative [...] PATIENT PRESENTS WITH AN IMPLANTABLE OR ATTACHED CURTAIN FELLER BLINDSTITCH: No RADIOLOGY DEPARTMENT: General X-ray: Exam(s) Completed: Abdomen X-Ray: Abdomen PERIPHERAL IV DATA: Not applicable SIGNED BY: RT Eugenio(R) November 11, 2024 11:07 AM documented in this encounter [facility] 11-11-2024 Note HNO ID: [id number] Author: VAMSI STEWART RT(R) Service: Radiology Author Type: Technologist Type: [...] PATIENT PRESENTS WITH AN IMPLANTABLE OR ATTACHED CURTAIN FELLER BLINDSTITCH: No RADIOLOGY DEPARTMENT: General X-ray: Exam(s) Completed: Abdomen X-Ray: Abdomen PERIPHERAL IV DATA: Not applicable SIGNED BY: RT Eugenio(R) November 11, 2024 11:07 AM [facility] 11-11-2024 Note HNO ID: [id number] Author: LETICIA HYLTON, DO Service: ? Author [...] every 24 hours. 38.7 mL 1 Insulin [place], Disposable, (PEN NEEDLE) 32 gauge x 5/32 [...] no edema RESPIRATORY: No dyspnea : neg EQUIPMENT OPERATOR: neg The remainder of the review of [...] 1V SUPINE (more content not included)... [facility] 11-11-2024 History of Present illness Narrative [...] every 24 hours. 38.7 mL 1 Insulin [place], Disposable, (PEN NEEDLE) 32 gauge x /32 [...] no edema RESPIRATORY: No dyspnea : neg EQUIPMENT OPERATOR: neg The remainder of the review of [...] Hylton DO 11/11/2024 documented in this encounter [facility] 11-06-2024 Note [facility] 11-05-2024 Miscellaneous Notes Agree with ER. [...] on the phone. documented in this encounter [facility] 11-05-2024 Telephone encounter Note Agree with ER. The patient actually does not have gastroparesis although she keeps stating that she does. Her smart pill in 2020 demonstrated no evidence of gastroparesis. What she has is chronic constipation and abdominal pain. [facility] 11-05-2024 Telephone encounter Note Called patient [...] functioning appropriately. Please advice. Guero Hammer LPN [facility] 11-05-2024 Telephone encounter Note Patient called and left v/m crying. States she has an appointment but is having some major issues and needs to talk to someone about what to do. She did not state what kinds of issues she is having however she was crying on the phone. [facility] Work Phone: 10-21-2024 Note [facility] 10-10-2024 Telephone encounter Note Form re-faxed per [facility] request [facility] 10-10-2024 Miscellaneous Notes Form re-faxed per [facility] request Form signed. Jessica Guerrero APRN.PIE CRIMPING MACHINE OPERATOR Clinical notes and DWO for infusion supplies placed on providers desk to review and advise. To be faxed to [facility] [phone] Patient has been identified by name and date of : Yes Type of form: [facility] Medical Physician Order for Insulin Pump Therapy and Diabetes Testing Form received via: abstract When form is completed, fax form to fax number provided. Form has been forwarded to: Provider's mailbox. Provider name: FRIEDA Urena documented in this encounter [facility] 10-02-2024 Telephone encounter Note Form signed. Jessica Guerrero APRN.CNP [facility] 10-02-2024 Telephone encounter Note Clinical notes and DWO for infusion supplies placed on providers desk to review and advise. To be faxed to [facility] [phone] [facility] 10-02-2024 Telephone encounter Note Patient has been identified by name and date of : Yes Type of form: [facility] Medical Physician Order for Insulin Pump Therapy and Diabetes Testing Form received via: abstract When form is completed, fax form to fax number provided. Form has been forwarded to: Provider's mailbox. Provider name: FRIEDA Urena [facility] 09-02-2024 Note HNO ID: [id number] Author: LETICIA HYLTON, DO Service: ? Author Type: Physician Type: Progress Notes Filed: 09/02/2024 09:32 Note Text: FOLLOW UP VIRTUAL VISIT I have communicated my name and active licensure. The patient's identity and physical location were verified at the time of this visit. Either the patient or their legal environmental marketing representative has been informed of the risks [...] every 24 hours. 38.7 mL 1 Insulin [place], Disposable, (PEN NEEDLE) 32 gauge x 5/32 [...] no edema RESPIRATORY: No dyspnea : Negative EQUIPMENT OPERATOR: Negative The remainder of the review of [...] local ER Leticia Hylton DO 09/02/2024 [facility] 09-02-2024 History of Present illness Narrative FOLLOW UP VIRTUAL VISIT I have communicated my name and active licensure. The patient's identity and physical location were verified at the time of this visit. Either the patient or their legal environmental marketing representative has been informed of the risks [...] every 24 hours. 38.7 mL 1 Insulin [place], Disposable, (PEN NEEDLE) 32 gauge x 5/32 [...] no edema RESPIRATORY: No dyspnea : Negative EQUIPMENT OPERATOR: Negative The remainder of the review of systems are negative. Reviewed with patient during visit today. PHYSICAL EXAMINATION: [facility] 06/04/2024 Estimated weight: GENERAL APPEARANCE: [...] Hylton DO 09/02/2024 documented in this encounter [facility] 08-07-2024 Telephone encounter Note Medication: Skyrizi 150mg/ml Dosing Schedule: 150mg every 12 weeks Prior Authorization: Submitted date: 08.07.2024 [place] reference #: [id number] Approval dates: 08.07.2024-08.27.2024 [facility] [phone] [facility] 08-07-2024 Miscellaneous Notes Medication: Skyrizi 150mg/ml Dosing Schedule: 150mg every 12 weeks Prior Authorization: Submitted date: 08.07.2024 [place] reference #: [id number] Approval dates: 08.07.2024-08.27.2024 [facility] [phone] documented in this encounter [facility] 08-03-2024 Note [facility] 07-24-2024 Telephone encounter Note [facility] form for CGM /Pump completed and signed per Provider for Medtronic 780G pump and Guardian 4. Completed form and JOSE X2 documentation faxed as requested to [facility]. Lisa Aguilar LPN [facility] 07-24-2024 Miscellaneous Notes [facility] form for CGM /Pump completed and signed per Provider for Medtronic 780G pump and Guardian 4. Completed form and JOSE X2 documentation faxed as requested to [facility]. Lisa Aguilar LPN Images from the original note were not included. Jessica Guerrero APRN.FRIEDA Ashby She was able to get upgraded pump recently. I am sending her to [employer] and [employer] to start. She will need new supplies from [facility] including Guardian 4 CGM and supplies for Medtronic 780 G. Jessica Guerrero APRN.PIE CRIMPING MACHINE OPERATOR documented in this encounter [facility] 07-23-2024 Note HNO ID: [id number] Author: VAMSI CARSON, STIVEN Service: ? Author Type: Registered Nurse Type: Progress Notes Filed: 07/23/2024 09:04 Note Text: DIABETES CARE AND EDUCATION VISIT Location: [place] Type of visit: In person individual PATIENT'S [...] July 23, 2024 TIME: 8:47 AM [facility] 07-23-2024 History of Present illness Narrative DIABETES CARE AND EDUCATION VISIT Location: [place] Type of visit: In person individual PATIENT'S [...] TIME: 8:47 AM documented in this encounter [facility] 07-19-2024 Telephone encounter Note Images from the original note were not included. Jessica Guerrero, ESTEFANIA.PIE CRIMPING MACHINE OPERATOR P Indep End[facility] Pool She was able to get upgraded pump recently. I am sending her to [facility] and medtronic to start. She will need new supplies from [facility] including Guardian 4 CGM and supplies for Medtronic 780 G. Jessica Guerrero APRN.PIE CRIMPING MACHINE OPERATOR [facility] 07-19-2024 History of Present illness Narrative [facility] DIABETES VISIT VIRTUAL VISIT I have communicated my name and active licensure. The patient's identity and physical location were verified at the time of this visit. Either the patient or their legal environmental marketing representative has been informed of the risks [...] 43 Units subcutaneously every 24 hours. Insulin [place], Disposable, (PEN NEEDLE) 32 gauge x 5/32 [...] diphtheria pertussis (Tdap) vaccine, age 7+ yr (VIVI BOOSTRIX) 11/03/2009 04/16/2014 Social History Tobacco Use [...] Memory Loss: No Seizures: No PHYSICAL EXAMINATION: [facility] 11/26/2022 General: Well appearing, alert, in no acute distress, well nourished. Lung: Unlabored on room air Neurological: alert and oriented x3 IMPRESSION/PLAN Ms. Villa is a 28 year old female who returns to the Department of Endocrinology for diabetes management. (E10.65) Type 1 diabetes mellitus with hyperglycemia, with long-term current use of insulin ([facility]) (primary encounter diagnosis) (Z96.41) Insulin pump status - Undetermined control - She was able to get upgraded pump back recently - Plans to send loaner back as it would be monthly charge - Will have her schedule visit with educator to start pump - Message sent to Umair at [employer] to help with upgrade to 780G and start Guardian 4 CGM - Will reach out to [facility] so she can get supplies - Update [...] I will reach out to Umair at [employer] about new pump and CGM 5) Update [...] Next visit in 2 months. Jessica Guerrero APRN.[facility] Endocrinology & Metabolism [place] Some elements in this note were copied from my last note and have been updated as appropriate and reflect medical decision making today. documented in this encounter [facility] 07-19-2024 Note HNO ID: [id number] Author: JESSICA GUERRERO APRN.FRIEDA Service: ? Author Type: Nurse Practitioner Type: Progress Notes Filed: 07/19/2024 15:15 Note Text: [facility] DIABETES VISIT VIRTUAL VISIT I have communicated my name and active licensure. The patient's identity and physical location were verified at the time of this visit. Either the patient or their legal environmental marketing representative has been informed of the risks [...] 43 Units subcutaneously every 24 hours. Insulin [place], Disposable, (PEN NEEDLE) 32 gauge x 5/32 [...] TRANSMIS W (more content not included)... [facility] 07-10-2024 Note HNO ID: [id number] Author: JASON PAREDES MD Service: ? Author [...] L2 SAB0 IAB0 Ectopic0 Multiple0 Live Births2 Commercial Credit Reviewer History LMP: 11/26/2022 (Exact Date), Having periods Age at Menarche: 12 Age at First : Age at Menopause: Commercial Credit Reviewer History Comments: Sexual Activity: Yes; Male Contraception: [...] discussed with the Patient or Patient's Authorized Mucker Cofferdam. As applicable, any other physician, advance practice provider, medical student, or other health professional student that will be observing or involved in the sensitive examination for educational or training purposes was discussed with the Patient or Authorized Mucker Cofferdam. The Patient or Authorized Mucker Cofferdam has agreed to proceed with the sensitive [...] external genitalia normal, normal Bartholin's glands, urethra, [place]'s glands, no vulvar lesions, no cervical lesions, [...] sooner as needed Jason Paredes MD [facility] 07-10-2024 History of Present illness Narrative [...] L2 SAB0 IAB0 Ectopic0 Multiple0 Live Births2 Commercial Credit Reviewer History LMP: 11/26/2022 (Exact Date), Having periods Age at Menarche: 12 Age at First : Age at Menopause: Commercial Credit Reviewer History Comments: Sexual Activity: Yes; Male Contraception: [...] discussed with the Patient or Patient's Authorized Mucker Cofferdam. As applicable, any other physician, advance practice provider, medical student, or other health professional student that will be observing or involved in the sensitive examination for educational or training purposes was discussed with the Patient or Authorized Mucker Cofferdam. The Patient or Authorized Mucker Cofferdam has agreed to proceed with the sensitive [...] external genitalia normal, normal Bartholin's glands, urethra, [place]'s glands, no vulvar lesions, no cervical lesions, [...] Jason Paredes MD documented in this encounter [facility] 06-25-2024 Telephone encounter Note Message has been relayed to patient via phone. Patient verbalizes understanding. [employer] message sent for patients reference as requested. [facility] 06-25-2024 Miscellaneous Notes Message has been relayed to patient via phone. Patient verbalizes understanding. [employer] message sent for patients reference as requested. I recommend she sees model maker scale to review pump options- I am fine [...] know if any further questions or concerns, Jsesica Guerrero APRN.PIE CRIMPING MACHINE OPERATOR JOSE- 03/12/24 NOV- 07/19/24 Spoke to patient [...] is currently using a loaner pump through [employer], that she will be billed $3,600 for. Patient is agreeable to any pump suggestions from provider. Insurance states she will have coverage for pumps, except for [employer]. Patient is also in need of a refill of Insulin Lispro. Would like pen-injector sent to [facility] Discussed with provider in office Please advise Patient needs a new pump other than med[employer]ic pump. She also needs pen novolog while she awaits a new pump documented in this encounter [facility] 06-25-2024 Telephone encounter Note I recommend she sees model maker scale to review pump options- I am fine [...] any further questions or concerns, Jessica Guerrero APRN.PIE CRIMPING MACHINE OPERATOR T [facility] 06-25-2024 Telephone encounter Note JOSE- 03/12/24 [...] Insulin Lispro. Would like pen-injector sent to [facility] Discussed with provider in office Please advise [facility] 06-24-2024 Telephone encounter Note Patient needs a new pump other than medton[employer] pump. She also needs pen novolog while she awaits a new pump T [facility] Work Phone: 06-17-2024 Telephone encounter Note Noted. Copy scanned into chart [facility] 06-17-2024 Miscellaneous Notes Noted. Copy scanned into chart Patient has been identified by name and date of : Yes Type of form: [employer] Medication Reconciliation Post Discharge V2 Form received via: Fax When form is completed, fax form to fax number provided. Form has been forwarded to: Provider's mailbox. Provider name: Dr. Joshua Quinteros documented in this encounter [facility] 06-17-2024 Telephone encounter Note Patient has been identified by name and date of : Yes Type of form: [employer] Medication Reconciliation Post Discharge V2 Form received via: Fax When form is completed, fax form to fax number provided. Form has been forwarded to: Provider's mailbox. Provider name: Dr. Joshua Quinteros [facility] 06-11-2024 Lisa [facility] 05-24-2024 Telephone encounter Note Spoke to pt. JOSE 03/12/24 ( we can sent notes over, if needed) 07/19/24 We have not received any new order forms from [facility] or [employer]. Advised pt to reach out. [facility] 05-24-2024 Miscellaneous Notes Spoke to pt. JOSE 03/12/24 ( we can sent notes over, if needed) 07/19/24 We have not received any new order forms from [facility] or [employer]. Advised pt to reach out. Patient has to reschedule her oct appt and will be completely out of her pump supplies before her next June appt. Please advise she needs her pump suppllies Lantus refill sent in. Please keep me updated if any issues. Jessica Guerrero APRN.FRIEDA JOSE 03/12/24 Joshua CAMPA 05/28/24 Josue Pt uses [facility] for supplies Has had loaner pump x3 months through [employer] and now has to return it or pay $3000 out of pocket. Advised pt she has to call [facility] and have them send us [...] pay the $3000,was told to call her machine stuffer automatic for assistance. documented in this encounter [facility] 05-24-2024 Telephone encounter Note Patient has to reschedule her oct appt and will be completely out of her pump supplies before her next June appt. Please advise she needs her pump suppllies [facility] Work Phone: 05-17-2024 Telephone encounter Note Lantus refill sent in. Please keep me updated if any issues. Jessica Guerrero APRN.FRIEDA T [facility] 05-17-2024 Telephone encounter Note JOSE 03/12/24 Joshua CAMPA 05/28/24 Josue Pt uses [facility] for supplies Has had loaner pump x3 months through [facility] and now has to return it or pay $3000 out of pocket. Advised pt she has to call [facility] and have them send us an order form for a new pump (have to see if insurance will pay for a new pump- Old pump was 5 years old) Told pt she has to let us know if she is without a pump and needs insulin ordered. Verbalized understanding. [facility] 05-16-2024 Telephone encounter Note Pt got [...] pay the $3000,was told to call her machine stuffer automatic for assistance. [facility] 05-06-2024 Telephone encounter Note Medication: Skyrizi 150mg/ml Dosing Schedule: 150mg every 12 weeks Prior Authorization: Submitted date: 05.06.2024 [place] reference #: [id number] Approval dates: 05.06.2024-08.27.2024 [facility] [phone] [facility] 05-06-2024 Miscellaneous Notes Medication: Skyrizi 150mg/ml Dosing Schedule: 150mg every 12 weeks Prior Authorization: Submitted date: 05.06.2024 PA reference #: [id number] Approval dates: 05.06.2024-08.27.2024 [facility] [phone] documented in this encounter [facility] 04-08-2024 Telephone encounter Note Prescription Refill [...] Yazmin Zaldivar April 08, 2024 1:18 PM [facility] 04-08-2024 Miscellaneous Notes Prescription Refill Information [...] 2024 1:18 PM documented in this encounter [facility] 03-12-2024 History of Present illness Narrative Images from the original note were not included. Last Visit: 12/13/2023 Ms. Villa is here for follow up regarding her DM Type 1. Is patient interested in MyChart? Patient uses it SMBG: Hyperglycemia: Yes, but rare Type of Monitor: [employer] 630G/ Guardian Frequency of Monitorin-8 times a [...] hyperglycemia, with long-term current use of insulin ([facility]) (primary encounter diagnosis) (Z96.41) Insulin pump status Her pump malfunctioned 3 weeks ago ( end of January 2023 ) and [employer] sent her loaner pump which she brought [...] which included preparing to see the patient, rink-ty-lnzy patient care, completing clinical documentation, communicating results to the patient/family/caregiver, and care coordination (not separately reported). documented in this encounter [facility] 03-12-2024 Note HNO ID: [id number] Author: LISA AGUILAR LPN Service: ? Author [...] LDL Cholesterol due on 02/04/2022 Covid-19 Vaccine( - 2022- season) Never done Diabetic Foot Exam due [...] Insulin du (more content not included)... [facility] 03-05-2024 Telephone encounter Note Faxed and filed. [facility] 03-05-2024 Miscellaneous Notes Faxed and filed. Signed On your desk. Please sign Patient has been identified by name and date of : Yes Type of form: Medical Necessity [employer] Form received via: Fax When form is completed, fax form to fax number provided. Form has been forwarded to: SILVINO Liriano documented in this encounter [facility] 03-05-2024 Telephone encounter Note Signed [facility] Work Phone: 03-04-2024 Telephone encounter Note On your desk. Please sign [facility] 03-02-2024 Telephone encounter Note Patient has been identified by name and date of : Yes Type of form: Medical Necessity [employer] Form received via: Fax When form is completed, fax form to fax number provided. Form has been forwarded to: SILVINO Liriano [facility] 02-14-2024 Telephone encounter Note Spoke with patient via phone and reviewed orders per [facility] notes. The patient is currently taking Humalog [...] understanding. No further questions at this time. [facility] 02-14-2024 Miscellaneous Notes Spoke with patient via phone and reviewed orders per [facility] notes. The patient is currently taking Humalog [...] pump on. Patient can be reached at [phone] documented in this encounter [facility] 02-14-2024 Telephone encounter Note Patient stated that her 630G pump malfunctioned and she had to get a new one. Patient needs to now what settings to put the pump on. Patient can be reached at [phone] [facility] 02-13-2024 Telephone encounter Note Images from the original note were not included. Returned patient's call. Pt states her pump got water on it and stopped working. Pt requests back up medication. Lantus and Humalog sent to the pharmacy of patient's preference. Jenn Solo MD Clinical Fellow PGY-4 Endocrinology and Metabolism [place] [facility] 02-13-2024 Miscellaneous Notes Images from the original note were not included. Returned patient's call. Pt states her pump got water on it and stopped working. Pt requests back up medication. Lantus and Humalog sent to the pharmacy of patient's preference. Jenn Solo MD Clinical Fellow PGY-4 Endocrinology and Metabolism [place] documented in this encounter [facility] 01-25-2024 Telephone encounter Note Returned pt's call. Pt scheduled for 02/01/24 for ILK. [facility] 01-25-2024 Miscellaneous Notes Returned pt's call. [...] not helping either. documented in this encounter [facility] 01-24-2024 Telephone encounter Note Patient left a voicemail on the nurses line returning ileana's call. [facility] 01-24-2024 Miscellaneous Notes Patient left a [...] helping either. documented in this encounter [facility] 01-24-2024 Telephone encounter Note Attempted to contact patient to offer/schedule for ILK injection to the stubborn spot on her scalp. Advised to return call if she would like to schedule. [facility] 01-23-2024 Telephone encounter Note Spoke to patient today to set up delivery of Skyrizi. She states that she has a stubborn spot on her scalp that is not going away. Everything else is going well but the topicals are not helping either[facility] HNO [facility]: [id number] Author: KYARA LUIS RN Service: ? Author [...] discharged from care coordination. Kyara Luis RN [facility] 12-15-2023 History of Present illness Narrative Summary: [...] - End: YES Follow up call placed, is moving at end of month. Is following with Endocrinology, had recent appointment and are working on CGM for her. has all medications, taking as directed, Declines need for continued follow up, discharged from care coordination. Kyara Luis RN documented in this encounter [facility] 12-15-2023 Note Patient Outreach ([facility]) KATHLEEN VILLA ([id number]) 1995 F CHT Date Time Provider Department 12/15/23 KYARA LUIS [facility] During your visit today, we recorded the following information about you: Kyara Luis RN 12/15/2023 2:20 PM Signed PRIMARY CARE COORDINATION [...] - End: YES Follow up call placed, is moving at end of month. Is [...] Date Reviewed: 12/13/2023 Reviewed by: Jessica Guerrero APRN.PIE CRIMPING MACHINE OPERATOR - Fully Assessed Reason for Visit: [facility]cu Specialist Chronic Care [[id number]] Prescriptions as of 12/15/2023 - promethazine (PHENERGAN) [...] (post-traumatic stress disorder) [F43.10] 12/25/2012 DVT prophylaxis [[id number]] 12/25/2012 09/04/2013 DISPOSITION AND FOLLOW-UP [V999.01] 12/25/2012 09/04/2013 HTN (hypertension) [I10] Hypertension in , antepartum [O16.9] 09/19/2013 01/08/2014 GBS (group B Streptococcus carrier), +RV cultur*11/11/2013 04/16/2014 [Z34.90] 11/22/2013 04/16/2014 Diabetes mellitus in (HCC) [O24.919] 12/25/2013 04/16/2014 Diabetic ketoacidosis without coma associated w*01/08/2014 02/04/2023 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] 01/08/2014 DVT prophylaxis [[id number]] 02/25/2014 04/16/2014 care and examination [Z39.2] 02/25/2014 04/16/2014 Near syncope [R55] 06/17/2014 Dyspnea [R06.00] 11/04/2014 Pre-op testing [Z01.818] 11/28/2014 Atelectasis [J98.11] 12/10/2014 Fluid overload [E87.70] 12/10/2014 12/15/2014 Tachycardia, unspecified [R00.0] 12/10/2014 12/12/2014 Post-operative pain [G89.18] (more content not included)... [facility] 12-13-2023 Instructions Jessica Guerrero APRN.CNP - 12/13/2023 [...] in 3 months documented in this encounter [facility] 12-13-2023 History of Present illness Narrative [...] Other maternal great grandma I reviewed the Clutch Assembler's notes with this visit for vital signs, [...] grandmother DM2 She is living at a ch[facility] currently, will be moving at the end of the month She has been noticing frequent lows over the past week or so Would like to resume CGM for her pump, I am not sure what the holdback is as PA was submitted by Dr. Joshua Rees DKA in September- admitted for 3 days, [...] patient is currently taking Humalog insulin via [employer] 630G insulin pump in manual mode at [...] hyperglycemia, with long-term current use of insulin ([facility]) (primary encounter diagnosis) (Z96.41) Insulin pump status - Worsening control - She is having frequent lows - Will adjust basal rate to help prevent low readings - I will reach out to [employer] regarding why CGM order is delayed as [...] months. Jessica Guerrero APRN.CNP Endocrinology & Metabolism [place] Some elements in this note were copied from my last note and have been updated as appropriate and reflect medical decision making today. documented in this encounter [facility] 12-13-2023 Note HNO ID: [id number] Author: JESSICA GUERRERO APRN.CNP Service: ? Author [...] Other maternal great grandma I reviewed the Clutch Assembler's notes with this visit for vital signs, [...] at a (more content not included)... [facility] 11-22-2023 Note HNO ID: [id number] Author: KYARA LUIS RN Service: ? Author [...] TCM completed will follow for care coordination. Market Risk Manager plan for next outreach: Will follow up Kyara Luis RN November 22, 2023 2:29 PM [facility] 11-22-2023 Note Patient Outreach ( [facility] KATHLEEN VILLA ([id number]) 1995 F T Date Time Provider Department 11/22/23 YKARA LUIS [facility] During your visit today, we recorded the [...] TCM completed will follow for care coordination. Market Risk Manager plan for next outreach: Will follow up [...] (post-traumatic stress disorder) [F43.10] 12/25/2012 DVT prophylaxis [[id number]] 12/25/2012 09/04/2013 DISPOSITION AND FOLLOW-UP [V999.01] 12/25/2012 09/04/2013 HTN (hypertension) [I10] Hypertension in , antepartum [O16.9] 09/19/2013 01/08/2014 GBS (group B Streptococcus carrier), +RV cultur*11/11/2013 04/16/2014 [Z34.90] 11/22/2013 04/16/2014 Diabetes mellitus in (HCC) [O24.919] 12/25/2013 04/16/2014 Diabetic ketoacidosis without coma associated w*01/08/2014 02/04/2023 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] 01/08/2014 DVT prophylaxis [[id number]] 02/25/2014 04/16/2014 care and examination [Z39.2] 02/25/2014 [...] suprapubic [R10.2] 02/07/2023 (more content not included)... [facility] 11-14-2023 History of Present illness Narrative DATE OF SERVICE: 11/14/2023 PATIENT NAME: Kathleen Villa : 1995 AGE: 28 y.o. CLINIC NUMBER: [id number] Visit type: Established patient Chief Complaint Patient [...] reapply. 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 Patient advised to perform self-skin checks and call for follow up appointment if any new or concerning lesions detected. Follow up in about 1 year (around 11/13/2024) for Psoriasis f/u. Leesa Huddleston PA-C 11/14/23 5:13 PM REFERRING MD: documented in this encounter [facility] 11-10-2023 Note HNO ID: [id number] Author: KYARA LUIS RN Service: ? Author [...] yet to schedule but plans to call. Market Risk Manager plan for next outreach: Will follow up Signature Kyara Luis RN November 10, 2023 [facility] 11-10-2023 Note [facility] Outreach ( [facility] DAISYKATHLEEN Swain ([id number]) 1995 F CHT Date Time Provider Department 11/10/23 KYARA LUIS [facility] During your visit today, we recorded the following information about you: Kyara Luis, RN 11/10/2023 1:21 PM Signed TRANSITION CARE MANAGEMENT (TCM) FOLLOW-UP NOTE Provider Action/FYI Summary: TCM follow up placed, states blood sugars have remained stable. Had intake on Monday for IOP and has first appointment in November. States has all medications, taking as directed. Did received email with physicians in her area, has yet to schedule but plans to call. Market Risk Manager plan for next outreach: Will follow up [...] (post-traumatic stress disorder) [F43.10] 12/25/2012 DVT prophylaxis [[id number]] 12/25/2012 09/04/2013 DISPOSITION AND FOLLOW-UP [V999.01] 12/25/2012 09/04/2013 HTN (hypertension) [I10] Hypertension in , antepartum [O16.9] 09/19/2013 01/08/2014 GBS (group B Streptococcus carrier), +RV cultur*11/11/2013 04/16/2014 [Z34.90] 11/22/2013 04/16/2014 Diabetes mellitus in (HCC) [O24.919] 12/25/2013 04/16/2014 Diabetic ketoacidosis without coma associated w*01/08/2014 02/04/2023 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] 01/08/2014 DVT prophylaxis [[id number]] 02/25/2014 04/16/2014 care and examination [Z39.2] 02/25/2014 [...] Encounter Status:Closed by KYARA LUIS on 11/10/23 [facility] 11-10-2023 History of Present illness Narrative Summary: [...] yet to schedule but plans to call. Market Risk Manager plan for next outreach: Will follow up Signature Kyara Luis RN November 10, 2023 documented in this encounter [facility] 11-03-2023 Note HNO ID: [id number] Author: KYARA LUIS RN Service: ? Author Type: Registered Nurse Type: Progress Notes Filed: 11/03/2023 12:45 Note Text: Summary: TCM follow up TRANSITION CARE MANAGEMENT (TCM) FOLLOW-UP NOTE Provider Action/FYI Patient identified by name and date of : YES Summary: TCM follow up call placed, patient requesting call back at later date, currently resting Market Risk Manager plan for next outreach: Will follow up Signature Kyara Luis RN November 03, 2023 [facility] 11-03-2023 Note Patient Outreach ([facility]) KATHLEEN VILLA ([id number]) 1995 F CHT Date Time Provider Department 11/03/23 KYARA LUIS [facility] During your visit today, we recorded the following information about you: Kyara Luis RN 11/03/2023 12:45 PM Signed TRANSITION CARE MANAGEMENT (TCM) FOLLOW-UP NOTE Provider Action/FYI Patient identified by name and date of : YES Summary: TCM follow up call placed, patient requesting call back at later date, currently resting Market Risk Manager plan for next outreach: Will follow up [...] (post-traumatic stress disorder) [F43.10] 12/25/2012 DVT prophylaxis [[id number]] 12/25/2012 09/04/2013 DISPOSITION AND FOLLOW-UP [V999.01] 12/25/2012 09/04/2013 HTN (hypertension) [I10] Hypertension in , antepartum [O16.9] 09/19/2013 01/08/2014 GBS (group B Streptococcus carrier), +RV cultur*11/11/2013 04/16/2014 [Z34.90] 11/22/2013 04/16/2014 Diabetes mellitus in (HCC) [O24.919] 12/25/2013 04/16/2014 Diabetic ketoacidosis without coma associated w*01/08/2014 02/04/2023 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] 01/08/2014 DVT prophylaxis [[id number]] 02/25/2014 04/16/2014 care and examination [Z39.2] 02/25/2014 [...] Encounter Status:Closed by KYARA LUIS on 11/03/23 [facility] 11-03-2023 History of Present illness Narrative Summary: TCM follow up TRANSITION CARE MANAGEMENT (TCM) FOLLOW-UP NOTE Provider Action/FYI Patient identified by name and date of : YES Summary: TCM follow up call placed, patient requesting call back at later date, currently resting Market Risk Manager plan for next outreach: Will follow up Signature Kyara Luis RN November 03, 2023 documented in this encounter [facility] 10-27-2023 Note HNO ID: [id number] Author: KYARA LUIS RN Service: ? Author Type: Registered Nurse Type: Progress Notes Filed: 10/27/2023 14:48 Note Text: Summary: TCM follow up TRANSITION CARE MANAGEMENT (TCM) FOLLOW-UP NOTE Provider Action/FYI Patient identified by name and date of : YES Discharge Network Status: Cmb-ws-Hngflzi (OON) Discharge Summary: TCM follow up call placed to patient, was at ED on 10/25 due to anxiety, started on ativan which is helping. Per patient has thoughts of self harm/cutting, this has subsided, no suicidal ideation. Has been in contact with [facility] intensive outpatient program and has evaluation on 11/05. Has been in contact with her counselor. Has number to crisis and encouraged to return to ED if new/worsening symptoms. Monitoring blood sugars, states have been stable. Per patient may have to change to PCP in [place], has difficulty obtaining ride to [place]. Patient asked if name and number of locals physicians can be sent to her, sent via email. States has all medications, taking as directed. Market Risk Manager plan for next outreach: Will follow up Signature Kyara Luis RN October 27, 2023 [facility] 10-27-2023 History of Present illness Narrative Summary: TCM follow up TRANSITION CARE MANAGEMENT (TCM) FOLLOW-UP NOTE Provider Action/FYI Patient identified by name and date of : YES Discharge Network Status: [id number] (OON) Discharge Summary: TCM follow up call placed to patient, was at ED on 10/25 due to anxiety, started on ativan which is helping. Per patient has thoughts of self harm/cutting, this has subsided, no suicidal ideation. Has been in contact with [facility] intensive outpatient program and has evaluation on 11/05. Has been in contact with her counselor. Has number to crisis and encouraged to return to ED if new/worsening symptoms. Monitoring blood sugars, states have been stable. Per patient may have to change to PCP in [place], has difficulty obtaining ride to [place]. Patient asked if name and number of locals physicians can be sent to her, sent via email. States has all medications, taking as directed. Market Risk Manager plan for next outreach: Will follow up Signature Kyara Luis RN October 27, 2023 documented in this encounter [facility] 10-27-2023 Note Patient Outreach (MR CAC) KATHLEEN VILLA ([id number]) 1995 F CHT Date Time Provider Department 10/27/23 KYARA LUIS [facility] During your visit today, we recorded the following information about you: Kayra Luis RN 10/27/2023 2:48 PM Signed TRANSITION CARE MANAGEMENT (TCM) FOLLOW-UP NOTE Provider Action/FYI Patient identified by name and date of : YES Discharge Network Status: [id number] (OON) Discharge Summary: TCM follow up call [...] may have to change to PCP in [place], has difficulty obtaining ride to [place]. Patient asked if name and number of locals physicians can be sent to her, sent via email. States has all medications, taking as directed. Market Risk Manager plan for next outreach: Will follow up [...] (post-traumatic stress disorder) [F43.10] 12/25/2012 DVT prophylaxis [[id number]] 12/25/2012 09/04/2013 DISPOSITION AND FOLLOW-UP [V999.01] 12/25/2012 09/04/2013 HTN (hypertension) [I10] Hypertension in , antepartum [O16.9] 09/19/2013 01/08/2014 GBS (group B Streptococcus carrier), +RV cultur*11/11/2013 04/16/2014 [Z34.90] 11/22/2013 04/16/2014 Diabetes mellitus in (HCC) [O24.919] 12/25/2013 04/16/2014 Diabetic ketoacidosis without coma associated w*01/08/2014 02/04/2023 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] 01/08/2014 DVT prophylaxis [[id number]] 02/25/2014 04/16/2014 care and examination [Z39.2] 02/25/2014 [...] disease*04/18/2022 Chronic na (more content not included)... [facility] 10-20-2023 Note HNO ID: [id number] Author: KYARA LUIS RN Service: ? Author [...] having a difficult time at a homeless chcf. Patient does attend weekly counseling at [employer], encouraged her to reach out to her [...] business days post-discharge SUMMARY: -Pt discharged from [facility] on 10/18/23. -Follow up appointment Endo. -Medication review done Yes. -Admitted for: DKA CONCERNS NEW MEDICATIONS:NA MEDS HELD/DISCONTINUED: NA BRIEF HOSPITAL COURSE: KATHLEEN VILLA is a 28 F with a PMH [...] per patient, her last A1C with her machine stuffer automatic was 6.7. She had however had recurrent [...] to follow up with her PCP and machine stuffer automatic as well as medical laboratory technical officer o/a of gastroparesis. Patient seen and examined prior to discharge. She had no active complaints and had an uneventful night. Review of systems is otherwise negative. Labs and vitals reviewed. Home meds reviewed and reconciled. Kyara Luis RN [facility] 10-20-2023 History of Present illness Narrative Summary: [...] having a difficult time at a homeless chcf. Patient does attend weekly counseling at [employer], encouraged her to reach out to her [...] business days post-discharge SUMMARY: -Pt discharged from [facility] on 10/18/23. -Follow up appointment Endo. -Medication [...] per patient, her last A1C with her machine stuffer automatic was 6.7. She had however had recurrent [...] to follow up with her PCP and machine stuffer automatic as well as medical laboratory technical officer o/a of gastroparesis. Patient seen and examined prior to discharge. She had no active complaints and had an uneventful night. Review of systems is otherwise negative. Labs and vitals reviewed. Home meds reviewed and reconciled. Kyara Luis RN documented in this encounter [facility] 10-20-2023 Note Patient Outreach ( CARLOS) KATHLEEN VILLA ([id number]) 1995 F T Date Time Provider Department 10/20/23 KYARA LUIS [facility] During your visit today, we recorded the [...] having a difficult time at a homeless chcf. Patient does attend weekly counseling at [employer], encouraged her to reach out to her [...] business days post-discharge SUMMARY: -Pt discharged from [facility] on 10/18/23. -Follow up appointment Endo. -Medication review done Yes. -Admitted for: DKA CONCERNS NEW MEDICATIONS:NA MEDS HELD/DISCONTINUED: NA BRIEF HOSPITAL COURSE: KATHLEEN VILLA is a 28 F with a PMH [...] per patient, her last A1C with her machine stuffer automatic was 6.7. She had however had recurrent [...] to follow up with her PCP and machine stuffer automatic as well as medical laboratory technical officer o/a of gastroparesis. Patient seen and examined [...] of 01/09/2020: All (more content not included)... [facility] 10-19-2023 Note HNO ID: [id number] Author: KYARA LUIS RN Service: ? Author Type: Registered Nurse Type: Progress Notes Filed: 10/19/2023 12:05 Note Text: Summary: TCM call TRANSITION CARE MANAGEMENT (TCM) FOLLOW-UP NOTE Provider Action/FYI Summary: TCM call placed to patient, no answer, message left to return my call at [phone] ext [phone] Market Risk Manager plan for next outreach: Will follow up Signature Kyara Luis RN October 19, 2023 [facility] 10-19-2023 Note Patient Outreach (MR CAC) KATHLEEN VILLA ([id number]) 1995 F T Date Time Provider Department 10/19/23 KYARA LUIS [facility] During your visit today, we recorded the following information about you: Kyara Luis RN 10/19/2023 12:05 PM Signed TRANSITION CARE MANAGEMENT (TCM) FOLLOW-UP NOTE Provider Action/FYI Summary: TCM call placed to patient, no answer, message left to return my call at [phone] ext [phone] Market Risk Manager plan for next outreach: Will follow up [...] (post-traumatic stress disorder) [F43.10] 12/25/2012 DVT prophylaxis [[id number]] 12/25/2012 09/04/2013 DISPOSITION AND FOLLOW-UP [V999.01] 12/25/2012 09/04/2013 HTN (hypertension) [I10] Hypertension in , antepartum [O16.9] 09/19/2013 01/08/2014 GBS (group B Streptococcus carrier), +RV cultur*11/11/2013 04/16/2014 [Z34.90] 11/22/2013 04/16/2014 Diabetes mellitus in (HCC) [O24.919] 12/25/2013 04/16/2014 Diabetic ketoacidosis without coma associated w*01/08/2014 02/04/2023 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] 01/08/2014 DVT prophylaxis [[id number]] 02/25/2014 04/16/2014 care and examination [Z39.2] 02/25/2014 [...] Encounter Status:Closed by KYARA LUIS on 10/19/23 [facility] 10-19-2023 History of Present illness Narrative Summary: TCM call TRANSITION CARE MANAGEMENT (TCM) FOLLOW-UP NOTE Provider Action/FYI Summary: TCM call placed to patient, no answer, message left to return my call at [phone] ext [phone] Market Risk Manager plan for next outreach: Will follow up Signature Kyara Luis RN October 19, 2023 documented in this encounter [facility] 10-17-2023 History and physi cristina note Note Date/Time October 17, 2023 11:24am [facility] Medical Records Department [address] [place] [address] History & Physical Exam 10/17/23 1120 MR#: [id number] Acct: [id number] Name: KATHLEEN VILLA Rep #:[id number] : [...] DKA and an known type I diabetic. [facility] Medical History Anxiety Borderline personality [...] gauge x 1/2 (Ultra-Thin II Insulin Pen [place]) #100 ea08/10/23 [Rx Last Taken Unknown] prochlorperazine [...] 88.4 H, Lymph % (Auto) 7.8 L, [place] % (Auto) 2.4, Eos % (Auto) 0.1, [...] was 6.7. * follows up with an machine stuffer automatic in [facility] in [place]. * last A1C from 08/07/2023 was 7 * #Gastroparesis in the setting of type 1 diabetes mellitus * on compazine. Add on phenergan prn * will benefit from metoclorpromide if nausea persists. * #Hypotension * BP is down in the 90s systolic. * will hydrate with IVF and trend. * DVT prpphylaxis: lovenox. Charges/Coding Visit Charges Inpatient E&M: 23611 Init Hosp L3 10/17/23 7524 <Electronically signed by Vita Jefferson MD> Cosigner Signature (if applicable): CC: Dr. Vita Jefferson MD; FUNMILAYO SMITH~ Signed [facility] Work Phone: 1(449) 194-451002-20-2024 Discharge summary Author Alexandro Garces [facility] October 17, 2023 11:38am Note Date/Time October 17, 2023 11:24am [facility] Medical Records Department [address] [place] [address] Emergency Department Summary 10/17/23 MR#: [id number] Acct: [id number] Name: KATHLEEN VILLA Rep #:[id number] : [...] gauge x 1/2 (Ultra-Thin II Insulin Pen [place]) #100 ea08/10/23 [Rx Last Taken Unknown] ibuprofen [...] Medical decision making narrative: Patient placed on cardiac rehabilitation program director. IV line initiated. Labwork obtained to evaluate [...] 88.4 H Lymph % (Auto) 7.8 L Monterey % (Auto) 2.4 Eos % (Auto) 0.1 [...] Garces MD - Last Filed: 10/17/23 11:38> [facility] MDM Narrative Medical decision making narrative: Patient placed on cardiac rehabilitation program director. IV line initiated. Labwork obtained to evaluate [...] 88.4 H Lymph % (Auto) 7.8 L Monte[place] % (Auto) 2.4 Eos % (Auto) 0.1 [...] minutes, Including time spent:, Discussing w/Patient &/or Family/Research Worker Encyclopedia, Discussing w/Consultants, Arranging Admission or Transfer, Performing Direct Patient Care at Bedside and - (35 minutes) Discharge Plan Dx/Rx/DC Orders Clinical Impression: DKA (diabetic ketoacidosis), Tachycardia, Nausea & vomiting, Acute dehydration Disposition Disposition: Acute Care [facility] What to do if you have Problems For any increased pain, shortness of breath, bleeding, nausea or vomiting, chest pain, or any unexpected problems, contact your Primary Care Provider. Call [facility] ([phone]) or report to the closest Emergency Room. Call 911 if necessary. 10/17/23 1138 <Electronically signed by Alexandro Garces MD> Cosigner Signature (if applicable): 10/17/23 1131 <Electronically signed by Jacqueline Alvarez RN> CC: FUNMILAYO SMITH ~ Signed [facility] Work Phone: 1(963) 127-157002-15-2024 NoteHNO ID: [id number] Author: KYARA LUIS RN Service: ? Author Type: Registered Nurse Type: Progress Notes Filed: 10/12/2023 14:16 Note Text: Summary: PCC follow up PRIMARY CARE COORDINATION FOLLOW-UP NOTE Provider Action/FYI Patient identified by name and date of . YES Summary: PCC follow up placed to patient, has moved out of chcf, now sharing and apartment. Per patient is [...] 100 mg/dL or on a high statin Market Risk Manager plan for next outreach: Will follow up Signature Kyara Luis RN October 12, 2023[facility]02-15-2024 NotePatient Outreach (MRCAC) KATHLEEN VILLA ([id number]) 1995 F T Date Time Provider Department 10/12/23 KYARA LUIS During your visit today, we recorded the following information about you: Kyara Luis RN 10/12/2023 2:16 PM Signed PRIMARY CARE COORDINATION FOLLOW-UP NOTE Provider Action/FYI Patient identified by name and date of . YES Summary: PCC follow up placed to patient, has moved out of chcf, now sharing and apartment. Per patient is [...] 100 mg/dL or on a high statin Market Risk Manager plan for next outreach: Will follow up [...] LPN - Fully Assessed Reason for Visit: Imcu Specialist Chronic Care [7994] Prescriptions as of 10/12/2023 - promethazine (PHENERGAN) [...] (post-traumatic stress disorder) [F43.10] 12/25/2012 DVT prophylaxis [[id number]] 12/25/2012 09/04/2013 DISPOSITION AND FOLLOW-UP [V999.01] 12/25/2012 09/04/2013 HTN (hypertension) [I10] Hypertension in , antepartum [O16.9] 09/19/2013 01/08/2014 GBS (group B Streptococcus carrier), +RV cultur*11/11/2013 04/16/2014 [Z34.90] 11/22/2013 04/16/2014 Diabetes mellitus in (HCC) [O24.919] 12/25/2013 04/16/2014 Diabetic ketoacidosis without coma associated w*01/08/2014 02/04/2023 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] 01/08/2014 DVT prophylaxis [[id number]] 02/25/2014 04/16/2014 care and examination [Z39.2] 02/25/2014 [...] [K59.04] 11/18/2021 Menstrual i (more content not included)...[facility]02-15-2024 History of Present illness Narrative* Kyara Luis RN - 10/12/2023 1:55 PM EST Summary: PCC follow up PRIMARY CARE COORDINATION FOLLOW-UP NOTE Provider Action/FYI Patient identified by name and date of . YES Summary: PCC follow up placed to patient, has moved out of chcf, now sharing and apartment. Per patient is [...] 100 mg/dL or on a high statin Market Risk Manager plan for next outreach: Will follow up Signature Kyara Luis RN October 12, 2023 [facility] Miscellaneous Notes* Telephone Encounter - Lisa Aguilar LPN - 10/02/2023 10:52 AM EST [employer] forms faxed to office for pump and CGM supplies, [employer] and [employer]. [employer] as back up. Completed forms and JOSE documentation faxed as requested. Lisa Aguilar LPN [facility] NotePatient Outreach (MRCAC) KATHLEEN VILLA ([id number]) 1995 F CHT Date Time Provider Department 09/29/23 KYARA LUIS [facility] During your visit today, we recorded the following information about you: Kyara Luis RN 09/29/2023 11:04 AM Signed PRIMARY CARE COORDINATION FOLLOW-UP NOTE Provider Action/FYI Patient identified by name and date of . YES Summary: Follow up call placed to patient, states continues to have nausea, taking compazine. Per patient has been moved to different chcf in [place] and will not be moving to [place]. States blood sugars are stable. Using insurance for transportation and will need to call them to update her new address. Has all medications, taking as directed. Market Risk Manager plan for next outreach: Will follow up [...] LPN - Fully Assessed Reason for Visit: Imcu Specialist Chronic Care [3612] Prescriptions as of 09/29/2023 [...] (post-traumatic stress disorder) [F43.10] 12/25/2012 DVT prophylaxis [[id number]] 12/25/2012 09/04/2013 DISPOSITION AND FOLLOW-UP [V999.01] 12/25/2012 09/04/2013 HTN (hypertension) [I10] Hypertension in , antepartum [O16.9] 09/19/2013 01/08/2014 GBS (group B Streptococcus carrier), +RV cultur*11/11/2013 04/16/2014 [Z34.90] 11/22/2013 04/16/2014 Diabetes mellitus in (HCC) [O24.919] 12/25/2013 04/16/2014 Diabetic ketoacidosis without coma associated w*01/08/2014 02/04/2023 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] 01/08/2014 DVT prophylaxis [[id number]] 02/25/2014 04/16/2014 care and examination [Z39.2] 02/25/2014 [...] 02/07/2023 Encounter Status:Closed by KYARA LUIS on 09/29/23[facility] 09-29-2023 NoteHNO ID: [id number] Author: KYARA LUIS RN Service: ? Author Type: Registered Nurse Type: Progress Notes Filed: 09/29/2023 11:04 Note Text: Summary: PCC follow up PRIMARY CARE COORDINATION FOLLOW-UP NOTE Provider Action/FYI Patient identified by name and date of . YES Summary: Follow up call placed to patient, continues to have nausea, taking compazine. Per patient has been moved to different chcf in [place] and will not be moving to [place]. States blood sugars are stable. Using insurance for transportation and will need to call them to update her new address. Has all medications, taking as directed. Market Risk Manager plan for next outreach: Will follow up Signature Kyara Luis RN September 29, 2023[facility]02-02-[facility]24 History of Present illness Narrative* Kyara Luis RN - 09/29/2023 10:48 AM ESTSummary: PCC follow up PRIMARY CARE COORDINATION FOLLOW-UP NOTE Provider Action/FYI Patient identified by name and date of . YES Summary: Follow up call placed to patient, continues to have nausea, taking compazine. Per patient has been moved to different chcf in [place] and will not be moving to [place]. States blood sugars are stable. Using insurance for transportation and will need to call them to update her new address. Has all medications, taking as directed. Market Risk Manager plan for next outreach: Will follow up Signature Kyara Luis RN September 29, 2023 [facility]24 NoteHNO ID: [id number] Author: KYARA LUIS RN Service: ? Author Type: Registered Nurse Type: Progress Notes Filed: 09/22/2023 10:16 Note Text: Summary: ED follow up LICENSED OCCUPATIONAL THERAPIST EMERGENCY DEPARTMENT FOLLOW UP INITIAL CONTACT Provider Action/FYI: Patient at [place] ED 09/20, Hyperglycemia, nausea/vomiting, was prescribed Reglan-states [...] refills. Patient has been living in homeless chcf in [place] making it difficult to keep appointments, also needing follow up with PCP. plan is to be moving to [place] and will be staying at [facility]. Message to office Spoke with patient aware phenergan filled and PCP scheduled for 10/03/23 Patient identified by name and date : YES SUMMARY: -Patient discharged from [place] ED on 09/20/22. -Follow up appointment on [...] for her nausea and vomiting. [facility] NotePatient Outreach (MRCAC) KATHLEEN VILLA ([id number]) 1995 F CHT Date Time Provider Department 09/21/23 [facility] During your visit today, we recorded the following information about you: Kyara Luis RN 09/22/2023 10:16 AM Addendum LICENSED OCCUPATIONAL THERAPIST EMERGENCY DEPARTMENT FOLLOW UP INITIAL CONTACT Provider Action/FYI: Patient at [place] ED 09/20, Hyperglycemia, nausea/vomiting, was prescribed Reglan-states [...] refills. Patient has been living in homeless chcf in [place] making it difficult to keep appointments, also needing follow up with PCP. plan is to be moving to [place] and will be staying at [facility]. Message to office Spoke with patient aware phenergan filled and PCP scheduled for 10/03/23 Patient identified by name and date : YES SUMMARY: -Patient discharged from [place] ED on 09/20/22. -Follow up appointment on [...] LPN - Fully Assessed Reason for Visit: Imcu Specialist Ed Follow Up [8670] Order(s):promethazine (PHENERGAN) 25 mg tabletTake 1 tablet [...] K31.84] 12/25/2012 PTSD (post-t (more content not included)...[facility]12-21-2023 Telephone encounter Note* Telephone Encounter - Mary Moreno PharmD - 08/17/2023 12:47 PM EST SUBJECTIVE Kathleen Villa is a 28 year old Female who was referred to [facility] for clinical management services for Skyrizi 150 MG/ML. Diagnosis Psoriasis vulgaris L40.0 OBJECTIVE Medications: Betamethasone Valerate 0.1 % CREA EX Clobetasol Propionate 0.05 % SOLN EX [place]cote-Smoothe/FS Body 0.01 % OIL EX Levothyroxine Sodium [...] such. Patient knows we are available M- 8-5 at [phone]. Mary Moreno Clinical Pharmacist [id number] Miscellaneous Notes* Telephone Encounter - Mary Moreno PharmD - 08/17/2023 12:47 PM EST SUBJECTIVE Kathleen Villa is a 28 year old Female who was referred to [facility] for clinical management services for Skyrizi 150 MG/ML. Diagnosis Psoriasis vulgaris L40.0 OBJECTIVE Medications: Betamethasone Valerate 0.1 % CREA EX Clobetasol Propionate 0.05 % SOLN EX Heathcote-Smoothe/FS Body 0.01 % OIL EX Levothyroxine Sodium [...] such. Patient knows we are available M- 8-5 at [phone]. Mary Moreno Clinical Pharmacist [facility] documented in this [facility]12-19-2023 NotePatient Outreach (MRCAC) KATHLEEN VILLA ([id number]) 1995 F T Date Time Provider Department 08/15/23 KYARA LUIS [facility] During your visit today, we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 contact your Primary Care Provider. Call [facility] ([phone]) or report to the closest Emergency Room. Call 911 if necessary. 04/26/232321 <Electronically signed by Loki Soria DO> Cosigner Signature (if applicable): CC: No Primary Care Physician ~ Signed [facility] Work Phone: 1(396) 762-578607-26-2023 Note* Quick Note - Radha Pablo RN - 03/22/2023 4:32 PM EDT Seen by [place] [facility] [place]. Received community resources. [id number] Miscellaneous Notes* Quick Note - Radha Pablo RN - 03/22/2023 4:32 PM EDT Seen by [place] [facility] [place]. Received Group Therapy Records resources. * Quick Note - Alta Teague [...] Met * Pharmacy Note - Felicia Montes RPh,PharmAngel - 03/21/2023 1:30 PM EDT Pharmacotherapy Note: [...] per the patient are well within the bus and rail operator expiration date and have been stored at roomtemperature (<28 days). She recently switched to Humalog and said the pump was refilled with brand new insulin before admission. Continue with insulin regimen as written. Please call pharmacy with any questions. Pharmacist: Felicia Montes Date: 03/21/2023 Contact Information: [phone] or Vocera * Plan of Care - [...] normal T Waves: T waves normal normal VT interval QT Interval: 514 Clinical impression: non-specific [...] further evaluation and treatment. documented in this [id number] Note* Quick Note - Alta Teague RN - 03/22/2023 4:20 PM EDT Patient educated on discharge instructions including need for follow up, new medications, and symptoms to monitor for. Port heparinized and de-accessed. No further questions. [id number] Hospital course Narrative* Benito Desir MD - 03/22/2023 1:34 PM EDT [facility] [place] [facility] [place] Admitted: 03/20/2023 Discharge Date: [...] 30 minutes on discharge. Completed by: Benito Desir on 03/22/23, 1:34 PM documented in this [id number] Note* Plan of Care - Alta Teague [...] of comfort function goal Outcome: Partially Met [id number] History of Present illness Narrative* Benito Desir MD - 03/22/2023 8:36 AM EDT [facility] [place] Assessment and Plan Kathleen [place] [...] Kathleen Villa Admit Date: 03/20/2023 [id number] 1995 Current location: [facility] Physicians: Nya, Physician (Family); Dr Ireland (Referring) [...] fluid boluses and antiemetics and admitted to [facility] for further management. While in the ER the patients insulinpump apparently became dislodged and her BG began to increase. Patient has had diabetes for 13 years. Diagnosed at the age of 14. Patient is currently on 670G insulin pump with guardian sensor. Her endocrinology practices in [facility]. She follows with them regularly. Her most [...] Edmondson MD - 03/21/2023 4:30 PM EDT [facility] PROGRESS NOTE Assessment and Plan Kathleen Villa [...] that she follows with Dr. Stevens at [facility].) Care Plan Care Plan No documented in this [id number] Note* Quick Note - Liang Boothe RN [...] with no further needs at this time. [id number] Note* Plan of Care - Liang Boothe [...] of comfort function goal Outcome: Partially Met [id number] Note* Pharmacy Note - Felicia Montes RPh,PharmD [...] per the patient are well within the bus and rail operator expiration date and have been stored at roomtemperature (<28 days). She recently switched to Humalog and said the pump was refilled with brand new insulin before admission. Continue with insulin regimen as written. Please call pharmacy with any questions. Pharmacist: Felicia Montes Date: 03/21/2023 Contact Information: [phone] or Vocera T [id number] Note* Plan of Care - Liang Boothe [...] of comfort function goal Outcome: Partially Met [id number] Note* Quick Note - Liang Purcell RN - 03/20/2023 6:32 PM EDT Admission skin assessment completed by this nurse and STIVEN Caceres. No skin issues identified at this time. [id number] Note* Plan of Care - Liang Purcell [...] of comfort function goal Outcome: Partially Met [id number] Note* ED Procedure Note - Siddharth Gagnon [...] normal T Waves: T waves normal normal VT interval QT Interval: 514 Clinical impression: non-specific ECG and sinus bradycardia [facility] Work Phone: 1(682) 716-266707-24-2023 Emergency department Note* Zee Chahal RN - 03/20/2023 11:22 AM EDT Bed: 36 Expected date: Expected time: Means of arrival: Comments: ROOM 14 [id number] Emergency department Note* Zee Chahal RN - 03/20/2023 11:22 AM EDT Bed: 36 Expected date: Expected time: Means of arrival: Comments: ROOM 14 * Mariel Gagnon MD - 03/20/2023 6:01 AM EDTAssociated Order(s): EKG 12-lead [facility] ATTENDING NOTE: NAME: Kathleen Villa CSN: [id number] 27 y.o. PCP: No, Physician History: Chief [...] All other components within normal limits Narrative: [facility] has implemented the eGFR calculation approach [...] All other components within normal limits Narrative: [facility] [employer] [facility] has implemented the eGFR calculation approach [...] All other components within normal limits Narrative: [facility] [employer] [facility] has implemented the eGFR calculation approach [...] Procedure Abnormality Status --------- ------ CBC Auto Differential[[id number]] Abnormal Final result Please view results for [...] RADIOLOGY: I did consider radiological studies for Kathleen's care today: CTA of the chest, abdomen, [...] available in inpatient encounters. Please contact a computer systems auditor. Mariel Gagnon MD ED Attending Physician [facility] (Please note that portions of this [...] 217about an hour ago documented in this [id number] History and physical note* Ernie Ireland MD - 03/20/2023 11:17 AM EDT [facility]ICAL -- [facility] Patient Name: Kathleen Villa : 1995 MR #: [id number] Admit Date: 03/20/2023 Physicians: No, Physician (Family); [...] fluid boluses and antiemetics and admitted to [facility] for further management. Past Medical History Past [...] normal coloration Psych: normal mood and affect [id number] History and physical note* Ernie Ireland MD - 03/20/2023 11:17 AM EDT [facility]YS[facility] -- [facility] Patient Name: Kathleen Villa : 1995 MR #: [id number] Admit Date: 03/20/2023 Physicians: No, Physician (Family); [...] fluid boluses and antiemetics and admitted to [facility] for further management. Past Medical History Past [...] normal mood and affect documented in this [id number] Note* ED Update Note - Mary Mesa [...] be admitted for further evaluation and treatment. [id number] Physician Emergency department Note* Mariel Gagnon MD - 03/20/2023 6:01 AM EDTAssociated Order(s): EKG 12-lead [facility] ATTENDING NOTE: NAME: Kathleen Villa CSN: [id number] 27 y.o. PCP: No, Physician History: Chief [...] All other components within normal limits Narrative: [facility] has implemented the eGFR calculation approach [...] All other components within normal limits Narrative: [facility] [employer] [facility] has implemented the eGFR calculation approach [...] All other components within normal limits Narrative: [facility] [employer] [facility] has implemented the eGFR calculation approach [...] Procedure Abnormality Status --------- ------ CBC Auto Differential[[id number]] Abnormal Final result Please view results for [...] RADIOLOGY: I did consider radiological studies for Kathleen's care today: CTA of the chest, abdomen, [...] available in inpatient encounters. Please contact a computer systems auditor. Mariel Gagnon MD ED Attending Physician [facility] (Please note that portions of this note have been completed with a voice recognition software. Efforts were made to correct any errors, but occasionally words are mis-transcribed.) Mariel Gagnon MD 03/21/23 1432 [facility] Work Phone: 1(940) 610-604707-24-2023 Emergency department Note* Tony Hernandez RN - 03/20/2023 4:26 AM EDT PT STATES THAT SHE CAN NOT PROVIDE URINE SAMPLE AND SHE NEEDS STRAIGHT CATH PERFORMED. [id number] Emergency department Triage note* Queta Arias, STIVEN - 03/20/2023 2:17 AM EDT Pt c/o vomiting and abdominal pain that started today, also c/o chest pain, states last bgl was 217about an hour ago [id number] NotePatient Outreach (MRCAC) KATHLEEN VILLA ([id number]) 1995 F T Date Time Provider Department 02/08/23 KYARA LUIS [facility] During your visit today, we recorded the [...] with GI and medication changes made, will roll picker new medication from her pharmacy. States that vomiting has resolved, tolerating diet, does have nausea and is on compazine and phenergan at home. Monitors blood sugar 5 times per day, FBS this am 131, has insulin pump and adjust according to carbohydrate intake. Currently waiting on continuous glucose monitor that was ordered at her last endocrinology appointment through [facility], patient calling today to follow [...] Vomiting/diabetic gastroparesis -Pt discharged from [facility] on 02/04. -Follow up appointment: Has had f/u with GI, declines sooner PCP appointment at this time . -Medication review completed. NEW OR CHANGED MEDICATIONS:NA MEDS HELD/DISCONTINUED:NA BRIEF HOSPITAL COURSE: 27-year-old white female who presented 2 days ago on 01/31 secondary to nausea and vomiting at home. Patient has a known history of diabetic gastroparesis. She follows in [facility]. She was admitted to [place]. Unfortunately she has not been tolerating p.o. intake with the exception of some ice chips Patient would be started on insulin drip while in the ICU. Anion gap would close and the patient would be transitioined to a diet. Blood sugars would remain stable once restarting her insulin pump. She will cotninue following with her personal machine stuffer automatic outpatient. Follow up with PCP in one [...] 4 gram chewable tablet (more content not included)...[facility]06-14-2023 NoteHNO ID: [id number] Author: Kyara Luis RN Service: ? Author [...] with GI and medication changes made, will roll picker new medication from her pharmacy. States [...] Vomiting/diabetic gastroparesis -Pt discharged from [facility] on 02/04. -Follow up appointment: Has had f/u with GI, declines sooner PCP appointment at this time . -Medication review completed. NEW OR CHANGED MEDICATIONS:NA MEDS HELD/DISCONTINUED:NA BRIEF HOSPITAL COURSE: 27-year-old white female who presented 2 days ago on 01/31 secondary to nausea and vomiting at home. Patient has a known history of diabetic gastroparesis. She follows in [facility]. She was admitted to [place]. Unfortunately she has not been tolerating p.o. intake with the exception of some ice chips Patient would be started on insulin drip while in the ICU. Anion gap would close and the patient would be transitioined to a diet. Blood sugars would remain stable once restarting her insulin pump. She will cotninue following with her personal machine stuffer automatic outpatient. Follow up with PCP in one week. Vital signs were stable on discharge. Patient understood and agreed with discharge plan You may be receiving a survey about your experience. We really value your feedback. If you would fill out the survey, it would help us tremendously as we continue to improve. Kyara Luis RN February 08, 2023 11:36 [facility]06-14-2023 History of Present illness Narrative* Kyara [...] with GI and medication changes made, will roll picker new medication from her pharmacy. States that vomiting has resolved, tolerating diet, does have nausea and is on compazine and phenergan at home. Monitors blood sugar 5 times per day, FBSthis am 131, has insulin pump and adjust according to carbohydrate intake. Currently waiting on continuous glucose monitor that was ordered at her last endocrinology appointment through [facility], patient calling today to follow [...] Vomiting/diabetic gastroparesis -Pt discharged from [facility] on 02/04. -Follow up appointment: Has had f/u with GI, declines sooner PCP appointment at this time . -Medication review completed. NEW OR CHANGED MEDICATIONS:NA MEDS HELD/DISCONTINUED:NA BRIEF HOSPITAL COURSE: 27-year-old white female who presented 2 days ago on 01/31 secondary to nausea and vomiting at home. Patient has a known history of diabetic gastroparesis. She follows in [facility]. She was admitted to [place]. Unfortunately she has not been tolerating p.o. intake with the exception of some ice chips Patient would be started on insulin drip while in the ICU. Anion gap would close and the patient would be transitioined to a diet. Blood sugars would remain stable once restarting her insulin pump. She will cotninue following with her personal machine stuffer automatic outpatient. Follow up with PCP in one week. Vital signs were stable on discharge. Patient understood and agreed with discharge plan You may be receiving a survey about your experience. We really value your feedback. If you would fill out the survey, it would help us tremendously as we continue to improve. Kyara Luis RN February 08, 2023 11:36 AM documented in this encounterBelle[facility]06-[facility]23 NotePatient Outreach (MRCAC) KATHLEEN VILLA ([id number]) 1995 F CHT Date Time Provider Department 02/06/23 KYARA LUIS During your visit today, we recorded the following information about you: Kyara Luis RN 02/06/2023 11:56 AM Signed TRANSITION CARE MANAGEMENT (TCM) FOLLOW-UP NOTE Provider Action/FYI Patient identified by name and date of : YES Summary: Transitional care call placed to patient, message left to return my call at [phone] Market Risk Manager plan for next outreach: Will follow up [...] 02/01/2023 Encounter Status:Closed by KYARA LUIS on 02/06/23[facility] 02-06-2023 NoteHNO ID: [id number] Author: Kyara Luis RN Service: ? Author Type: Registered Nurse Type: Progress Notes Filed: 02/06/2023 11:56 AM Note Text: Summary: TCM call TRANSITION CARE MANAGEMENT (TCM) FOLLOW-UP NOTE Provider Action/FYI Patient identified by name and date of : YES Summary: Transitional care call placed to patient, message left to return my call at [phone] Market Risk Manager plan for next outreach: Will follow up this week Signature Kyara Luis RN February 06, 2023[facility]06-09-2023 NoteHNO ID: [id number] Author: Clemencia Rivera RN Service: PICC Team Author Type: Registered Nurse Type: Procedures Filed: 02/03/2023 2:30 PM Note Text: MIDLINE INSERTION PROCEDURE NOTE - PICC TEAM NURSES DATE OF PROCEDURE: 02/03/2023 TIME OF PROCEDURE: 1420 ORDERING PHYSICIAN: Juan Carlos Leroy CNP Indications for line placement: Intravenous access Condition of line placement: Sterile Primary Proceduralist: Lewis Fuentes RN Marine Equipment Test Engineer: Clemencia Rivera RN Pre-procedure Review: ALLERGIES Allergen [...] RN Midline Catheter Placement: Brand: BARD Lot: [id number] Number of lumens: 1 Type of Midline: Power Injectable Midline Lumen size: 3 English Placement Technique: Lidocaine: Yes, Lidocaine 1% Volume [...] or problems: Call Vascular Access Nurse on [facility] SIGNATURE: Clemencia Rivera RN PATIENT NAME: Kathleen Villa DATE: February 03, 2023 TIME: 2:24 PM PAGER: Call Vascular Access Nurse on [facility] 02-03-2023 NoteHNO ID: [id number] Author: Mary Ordoñez RN Service: Nursing Author Type: Registered Nurse Type: Nursing Progress Note Filed: 02/03/2023 1:55 PM Note Text: Vascular access team at bedside setting up for ordered midline IV placement at this time.[facility]06-09-2023 NoteHNO ID: [id number] Author: Rubio Diana MD Service: Critical Care Author Type: Physician Type: Progress Notes Filed: 02/03/2023 11:39 AM Note Text: [facility] STAFF PHYSICIAN NOTE OF PERSONAL INVOLVEMENT IN [...] of care, medical plan for the day, market intelligence consultant recommendations, medical disposition and current medical [...] Diana MD [facility] DATE of SERVICE: 02/03/2023[facility]06-09-2023 NoteHNO ID: [id number] Author: Yimi Leroy APRN.FRIEDA Service: Critical Care Author Type: Nurse Practitioner [...] Labs 02/03/23 0336 02/02/23 1126 02/01/23 0514 01/31/231955 WBC 16.45* 20.73* 16.97* 15.46* HB 11.8 [...] the last 168 hours. BMP: Recent Labs 02/03/23 0336 02/02/23 1930 02/02/23 1126 02/02/23 0944 02/02/23 0202 02/01/23 1235 [...] 0.75 0.89 0.66 0.65 CHEM: Recent Labs 02/03/23 0336 02/02/23 1930 02/02/23 1126 02/02/23 0944 02/02/23 0202 02/01/23 1235 02/01/23 0514 01/31/231955 ALB 3.5 -- -- -- -- -- 3.8 4.3 TPROT 5.8* -- -- -- -- -- 6.5 7.3 CA 8.5 8.0* 8.2* 8.6 8.6 8.4* 8.7 9.9 MG 1.8 -- -- 2.3 -- -- 1.7 -- HEPATIC: Recent Labs 02/03/236 02/01/23 0514 01/31/231955 ALKPHOS 82 84 93 ALT 19 19 21 AST -- 15 19 TBILI 1.0 0.7 0.8 LIPASE -- -- 21 URINALYSIS: Recent Lab (more content not included)...[facility]06-08-2023 NoteHNO ID: [id number] Author: Rubio Diana MD Service: Critical Care Author Type: Physician Type: Progress Notes Filed: 02/02/2023 2:32 PM Note Text: [facility] STAFF PHYSICIAN NOTE OF PERSONAL INVOLVEMENT IN [...] of care, medical plan for the day, market intelligence consultant recommendations, medical disposition and current medical [...] Diana MD [facility] DATE of SERVICE: 02/02/2023[facility]06-08-2023 NoteHNO ID: [id number] Author: Alex Mccray MD Service: Hospital Medicine Author Type: Physician Type: Progress Notes Filed: 02/02/2023 9:37 AM Note Text: INPATIENT PROGRESS NOTE SERVICE DATE: 02/02/2023 SERVICE TIME: 9:03 AM SUBJECTIVE: CHIEF COMPLAINT: Nausea, vomiting, abdominal pain INTERVAL HPI: Patient seen and examined. Patient is 27-year-old female with history of diabetes, gastroparesis, follows with medical laboratory technical officer at [facility] who presented for abdominal pain, [...] bilaterally.] SKIN: [Clear, no evidence of bleeding.] DUCT MAKER: [Patient awake, alert, oriented ?3. No focal [...] with history of diabetes, gastroparesis, follows with medical laboratory technical officer at [facility] who presented for abdominal pain, nausea, vomiting for 1 day and on evaluation she was thought to have gastroparesis episode for which s (more content not included)...[facility]06-07-2023 NoteHNO ID: [id number] Author: Alex Mccray MD Service: Hospital Medicine Author Type: Physician Type: Progress Notes Filed: 02/02/2023 8:24 AM Note Text: INPATIENT PROGRESS NOTE SERVICE DATE: 02/01/2023 SERVICE TIME: 11:38 AM SUBJECTIVE: CHIEF COMPLAINT: Nausea, vomiting, abdominal pain INTERVAL HPI: Patient seen and examined. Patient is 27-year-old female with history of diabetes, gastroparesis, follows with medical laboratory technical officer at [facility] who presented for abdominal pain, [...] bilaterally.] SKIN: [Clear, no evidence of bleeding.] DUCT MAKER: [Patient awake, alert, oriented ?3. No focal [...] bowel. Consider CT if concern remains high. Facility Manager Histology: CONCHITA Transcribe Date/Time: Jan 31 2023 7:56P Dictated [...] QTC Calculation (Bazett) 463 ms Calculated P Bowler 26 degrees Calculated R Bowler 78 degrees Calculated T Bowler 72 degrees Narrative NAME : KATHLEEN VILLA PID : [id number] : 1995 Gender : Female Race : ORD : [id number] Procedure Date : Jan 31 2023 19:42:30 Edit Date : Jan 31 2023 23:03:15 Diagnosis: Normal sinus rhythm Nonspecific T wave abnormality Abnormal ECG When compared with ECG of 29-MAR-2023 18:14, Nonspecific T wave abnormality now evident in Lateral leads QT has lengthened Confirmed by ANASTASIA CHENG MD ([id number]) on 01/31/2023 11:03:12 PM Test Reason : STAT Location : 0 : ED 9 Overread By : ANASTASIA CHENG MD Edited By : ANASTASIA CHENG MD Referred By : , Acquired by : LJ, Impression Normal sinus rhythm Nonspecific T wave abnormality Abnormal ECG When compared with ECG of 23-NOV-2022 18:14, Nonspecific T wave abnormality now evident in Lateral leads QT has lengthened Confirmed by ANASTASIA CHENG MD ([id number]) on 01/31/2023 11:03:12 PM CBC + DIFF [...] 4.00 k/uL Monocytes % 4.7 % Abs [place] 0.73 <0.87 k/uL Eosinophils % 0.1 % Abs Eosin <0.03 <0.46 k/uL Basophils % 0.5 % Abs Baso 0.07 <0.11 k/uL (more content not included)...[facility]06-07-2023 Miscellaneous Notes * Telephone Encounter - Radha Mandel MA - 02/01/2023 10:36 AM EDT Spoke with patient and she voiced understanding. * Telephone Encounter - Radha Mandel MA - 02/01/2023 10:35 AM EDT ----- Message from Vivi Smith MD sent at 01/27/2023 8:53 AM EDT ----- Please call and notify patient no signs of UTI on urine culture documented in this encounterBellevue Hospital05-31-2023 NoteHNO ID: [id number] Author: Radha Mandel MA Service: ? Author Type: Clutch Assembler Type: Progress Notes Filed: 01/25/2023 1:01 PM Note Text: Patient here today to recollect urine as previous urine culture was contaminated. Patient concerned as that was her second collection with multiple bacteria. Urine collected, dipped, and sent out for culture.[facility]05-31-2023 History of Present illness Narrative* Autumn Valadze APRN.PIE CRIMPING MACHINE OPERATOR - 01/25/2023 1:30 PM EDT Images from [...] (BAQSIMI) 3 mg/actuation nasal spray Use 1 [place] in the nose as needed for low [...] Other maternal great grandma I reviewed the Clutch Assembler's notes with this visit for vital signs, [...] was late to this appt today. Zohreh Mckayla will be training her on the new Medtronic 770G. Gilda needs office visit notes from today faxed to [facility] in order to receive her [...] hyperglycemia, with long-term current use of insulin ([facility]) (primary encounter diagnosis) (Z96.41) Insulin pump status [...] visit in 3 months with FRIEDA Urena APRN.FRIEDA Endocrinology & Metabolism [facility] Some elements in this note were copied from my last note and have been updated as appropriate and reflect medical decision making today. documented in this encounterBellevue Hospital05-31-2023 History of Present illness Narrative* Radha Mandel MA - 01/25/2023 12:59 PM EDT Patient here today to recollect urine as previous urine culture was contaminated. Patient concernedas that was her second collection with multiple bacteria. Urine collected, dipped, and sent out forculture. documented in this encounterBellevue Hospital05-31-2023 Miscellaneous Notes* Telephone Encounter - Radha [...] based on this specimen documented in this encounterBellevue Hospital05-30-2023 Miscellaneous Notes* Telephone Encounter - Vivi Smith MD - 01/24/2023 11:58 AM EDT Port Flush order in Outbox on RX paper as unable to write order in Epic * Telephone Encounter - Radha Mandel MA - 01/24/2023 11:37 AM EDT Yaima from [facility] called and they need an order for a port flush. Pleaseplace order and I will fax. documented in this encounterBellevue Hospital05-26-2023 NoteHNO ID: [id number] Author: Nicolette Cox LPN Service: ? Author Type: LICENSED NURSE Type: Progress Notes Filed: 01/20/2023 3:16 PM Note Text: Gilda presents today for a 1 month follow up visit.Gilda continues to c/o abdominal pain that radiates to her back. She states she did not follow up with pain management.[facility]05-26-2023 NoteHNO ID: [id number] Author: Vivi Smith MD Service: ? Author [...] 200s/. She sees Endo next week. Seeing MACHINE FUR CLEANER and had recent negative pap smear and [...] (BAQSIMI) 3 mg/actuation nasal spray Use 1 [place] in the nose as needed for low [...] movements intact. Conjunctiva/sclera: Conjunc (more content not included)...[facility] 01-12-2023 NoteHNO ID: [id number] Author: Madonna Toro, DO Service: ? Author [...] fevers GI: No nausea, vomiting, or diarrhea EQUIPMENT OPERATOR: Negative for abnormal vaginal bleeding, abnormal vaginal [...] 1 AND 2 IG Call with results. Madnona Toro, [facility]05-18-2023 NoteHNO ID: [id number] Author: Faviola Engle MA Service: ? Author Type: Clutch Assembler Type: Progress Notes Filed: 01/12/2023 1:32 PM Note Text: Pt was exposed to a std.[facility]05-16-2023 Miscellaneous Notes* Telephone Encounter - Dori Chapman RN - 01/10/2023 8:58 AM EDT I called pt - pt confirmed 1:00p on documented in this encounterBellevue Hospital05-09-2023 Miscellaneous Notes* Telephone Encounter - Lucius [...] forwarded to: SILVINO Trujillo documented in this encounterBellevue Hospital04-14-2023 Miscellaneous Notes* Telephone Encounter - Nicolette [...] message for Dr. Johansen who [facility], [facility] doctor she previously seen. She [...] want to seeher sooner. documented in this encounterBellevue Hospital04-13-2023 History of Present illness Narrative* Nicolette [...] admissions. Discharge Summary Fide Pitts MD (Physician) Hospital Medicine Expand All Collapse All DISCHARGE [...] use of insulin (HCC); Insulin pump status LINZESS 72 mcg Take [...] hyperglycemia, with long-term current use of insulin ([facility]); Insulin pump status blood sugar diagnostic (CONTOUR NEXT TEST STRIPS) test strip Use as instructed to check blood glucose 5 times daily. E10.65 Qty: 500 Strip Refills: 3 Associated Diagnoses:Type 1 diabetes mellitus with hyperglycemia, with long-term current use of insulin ([facility]); Insulin pump status BAQSIMI 3 mg Use 3 mg in the nose as needed for low blood sugar. <span hidden class=[email or web address]></span>May repeat after 15 minutes using a new device if there is no response. Qty: 2 Each Refills: 2 Associated Diagnoses:Type 1 diabetes mellitus with hyperglycemia, with long-term current use of insulin ([facility]); Insulin pump status glucose 16 g Take 16 g by mouth as needed. Qty: 100 tablet Refills: 11 Associated Diagnoses:Type 1 diabetes mellitus with hyperglycemia, with long-term current use of insulin ([facility]); Insulin pump status insulin glargine (LANTUS SOLOSTAR, BASAGLAR KWIKPEN) 100 unit/mL (3 mL) Inject 43 Units subcutaneously as directed in the event of Insulin pump failure. Qty: 15 mL Refills: 1 Comments: Generic or brand: dispense product preferred by patient/insurance unless BRET flag is selected. Associated Diagnoses:Type 1 diabetes mellitus with hyperglycemia, with long-term current use of insulin ([facility]); Insulin pump status Acetone, Urine, Test (KETONE URINE TEST) Use as directed Qty: 100 Strip Refills: 5 Associated Diagnoses: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 ([facility]) hydrOXYzine HCl (ATARAX) 50 mg Take 50 mg by mouth every 6 hours as needed. FUTURE APPOINTMENTS: Follow Up with Gastroenterology: Ricci Burgess MD Discharge Information Row Name ED to Hosp-Admission (Current) from 11/23/2022 in [facility] Medical Follow-Up Appointment Specialty Primary Care Provider Provider Name Dr. Smith Address [address], [place] [address] Appointment Date 12/08/22 Appointment Time 1:45pm The [...] type 1 with gastroparesis: Patient follows with medical laboratory technical officer Dr. Leticia Hylton with several smart pill [...] liver,biliary tree and pancreatic region SIGNATURE: Kathleen Hicks APRN.PIE CRIMPING MACHINE OPERATOR PAST MEDICAL HISTORY Diagnosis Date Anxiety disorder [...] (BAQSIMI) 3 mg/actuation nasal spray Use 1 [place] in the nose as needed for low [...] Diagnosis ICD-10-CM 1. Gastroparesis due to DM (HCC) E11.43 K31.84 2. Aortic root aneurysm (HCC) I71.21 3. Primary hypertension I10 4. Chronic nausea R11.0 5. 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) E10.3553 6. Marfan syndrome Q87.40 7. PTSD (post-traumatic stress disorder) F43.10 8. Generalized abdominal pain R10.84 Per Hospital note reviewed but patient states her pain is different Will refer down to [facility] ED for further evaulation Stable at the moment Unclear etiology On Insulin Pump. HBA1c 3 months ago was 7 Noted Stable Pain out of portion. Sent by private vehicle to rule out blood clot/mesenteric ischemia and furtheretiologies. Vivi Smith MD documented in this encounterBellevue Hospital04-10-2023 Miscellaneous Notes* Telephone Encounter - Lisa Aguilar LPN - 12/05/2022 3:09 PM EDT Form faxed to [facility]. Lisa Aguilar LPN * Telephone Encounter - Autumn Valadez APRN.CNP - 12/05/2022 12:32 PM EDT Signed Autumn Valadez APRN.FRIEDA * Telephone Encounter - Lisa Aguilar LPN - 12/05/2022 10:04 AM EDT JOSE:08/16/2022 NOV: 12/07/2022 Called patient Verified she has new pump medtronic 770G and will be meeting with [facility] for education on newpump. Patient [...] Aguilar LPN * Telephone Encounter - Jackeline Estrada Pss - 12/02/2022 2:36 PM EDT Patient has been identified by name and date of : Yes Type of form: [facility] form requesting question #6 sign and date Form received via: Fax When form is completed, fax form to fax number provided. Form has been forwarded to: Provider's mailbox. Provider name: Dr Joshua Estrada Pss * Telephone Encounter - David De Jesus RN - 11/23/2022 10:09 AM EDT INsulin approved 11/12/22-12/14/23 * Telephone Encounter - Lisa Aguilar LPN - 11/08/2022 2:19 PM EDT Form and documentation faxed to [facility]. Lisa Aguilar LPN * Telephone Encounter - Kvng Lewis MD - 11/08/2022 12:49 PM EDT Form signed. * Telephone Encounter - Florence Murillo RN - 11/07/2022 3:19 PM EDT Received form from [facility] Medical Form, 6 months of OV notes and CGM download on desk, please sign * Telephone Encounter - Lisa Aguilar LPN - 11/04/2022 11:15 AM EST Completed form faxed to [facility]. Lisa Aguilar LPN * Telephone [...] date of : Yes Type of form: [facility] MEDICAL / CGM Form received via: Fax When form is completed, fax form to fax number provided.[phone] Form has been forwarded to: SILVINO Hayes Pss documented in this encounterBellevue Hospital03-29-2023 History of Past illness Narrative* Problem [...] 02/25/2014 morning - On fentanyl gtt per TACTICAL DEBRIEFER OFFICER Plan: - TACTICAL DEBRIEFER OFFICER team to round on patient and manage [...] arise --- Follows with Dr. Garcia at [facility] Plan: - Continuous monitoring - F/u TACTICAL DEBRIEFER OFFICER recs GBS (group B Streptococcus carrier), +RV culture @ 22 wks 11/11/2013 04/16/2014 Hypertension in , antepartum 09/19/2013 01/08/2014 DVT prophylaxis 12/25/2012 09/04/2013 Overview: IPCs DISPOSITION AND FOLLOW-UP 12/25/20122013 Overview: Full code Retinal detachment 10/26/2012 12/25/2012 documented as of this encounter (statuses as of 12/09/2022) [facility] History of Past illness Narrative* Problem [...] 02/25/2014 morning - On fentanyl gtt per TACTICAL DEBRIEFER OFFICER Plan: - TACTICAL DEBRIEFER OFFICER team to round on patient and manage [...] arise --- Follows with Dr. Garcia at [facility] Plan: - Continuous monitoring - F/u TACTICAL DEBRIEFER OFFICER recs GBS (group B Streptococcus carrier), +RV culture @ 22 wks 11/11/2013 04/16/2014 Hypertension in , antepartum 09/19/2013 01/08/2014 DVT prophylaxis 12/25/2012 09/04/2013 Overview: IPCs DISPOSITION AND FOLLOW-UP 12/25/20122013 Overview: Full code Retinal detachment 10/26/2012 12/25/2012 documented as of this encounter (statuses as of 12/09/2022) [facility] History of Past illness Narrative* Problem [...] 02/25/2014 morning - On fentanyl gtt per TACTICAL DEBRIEFER OFFICER Plan: - TACTICAL DEBRIEFER OFFICER team to round on patient and manage [...] arise --- Follows with Dr. Garcia at [facility] Plan: - Continuous monitoring - F/u TACTICAL DEBRIEFER OFFICER recs GBS (group B Streptococcus carrier), +RV culture @ 22 wks 11/11/2013 04/16/2014 Hypertension in , antepartum 09/19/2013 01/08/2014 DVT prophylaxis 12/25/2012 09/04/2013 Overview: IPCs DISPOSITION AND FOLLOW-UP 12/25/20122013 Overview: Full code Retinal detachment 10/26/2012 12/25/2012 documented as of this encounter (statuses as of 01/03/2023) [facility] History of Past illness Narrative* Problem [...] 02/25/2014 morning - On fentanyl gtt per TACTICAL DEBRIEFER OFFICER Plan: - TACTICAL DEBRIEFER OFFICER team to round on patient and manage [...] arise --- Follows with Dr. Garcia at [facility] Plan: - Continuous monitoring - F/u TACTICAL DEBRIEFER OFFICER recs GBS (group B Streptococcus carrier), +RV culture @ 22 wks 11/11/2013 04/16/2014 Hypertension in , antepartum 09/19/2013 01/08/2014 DVT prophylaxis 12/25/2012 09/04/2013 Overview: IPCs DISPOSITION AND FOLLOW-UP 12/25/20122013 Overview: Full code Retinal detachment 10/26/2012 12/25/2012 documented as of this encounter (statuses as of 01/10/2023) [facility] History of Past illness Narrative* Problem [...] 02/25/2014 morning - On fentanyl gtt per TACTICAL DEBRIEFER OFFICER Plan: - TACTICAL DEBRIEFER OFFICER team to round on patient and manage [...] arise --- Follows with Dr. Garcia at [facility] Plan: - Continuous monitoring - F/u TACTICAL DEBRIEFER OFFICER recs GBS (group B Streptococcus carrier), +RV culture @ 22 wks 11/11/2013 04/16/2014 Hypertension in , antepartum 09/19/2013 01/08/2014 DVT prophylaxis 12/25/2012 09/04/2013 Overview: IPCs DISPOSITION AND FOLLOW-UP 12/25/20122013 Overview: Full code Retinal detachment 10/26/2012 12/25/2012 documented as of this encounter (statuses as of 01/24/2023) [facility] History of Past illness Narrative* Problem [...] 02/25/2014 morning - On fentanyl gtt per TACTICAL DEBRIEFER OFFICER Plan: - TACTICAL DEBRIEFER OFFICER team to round on patient and manage [...] arise --- Follows with Dr. Garcia at [facility] Plan: - Continuous monitoring - F/u TACTICAL DEBRIEFER OFFICER recs GBS (group B Streptococcus carrier), +RV culture @ 22 wks 11/11/2013 04/16/2014 Hypertension in , antepartum 09/19/2013 01/08/2014 DVT prophylaxis 12/25/2012 09/04/2013 Overview: IPCs DISPOSITION AND FOLLOW-UP 12/25/20122013 Overview: Full code Retinal detachment 10/26/2012 12/25/2012 documented as of this encounter (statuses as of 01/25/2023) [facility] History of Past illness Narrative* Problem [...] 02/25/2014 morning - On fentanyl gtt per TACTICAL DEBRIEFER OFFICER Plan: - TACTICAL DEBRIEFER OFFICER team to round on patient and manage [...] arise --- Follows with Dr. Garcia at [facility] Plan: - Continuous monitoring - F/u TACTICAL DEBRIEFER OFFICER recs GBS (group B Streptococcus carrier), +RV culture @ 22 wks 11/11/2013 04/16/2014 Hypertension in , antepartum 09/19/2013 01/08/2014 DVT prophylaxis 12/25/2012 09/04/2013 Overview: IPCs DISPOSITION AND FOLLOW-UP 12/25/20122013 Overview: Full code Retinal detachment 10/26/2012 12/25/2012 documented as of this encounter (statuses as of 01/25/2023) [facility] History of Past illness Narrative* Problem [...] 02/25/2014 morning - On fentanyl gtt per TACTICAL DEBRIEFER OFFICER Plan: - TACTICAL DEBRIEFER OFFICER team to round on patient and manage [...] arise --- Follows with Dr. Garcia at [facility] Plan: - Continuous monitoring - F/u TACTICAL DEBRIEFER OFFICER recs GBS (group B Streptococcus carrier), +RV culture @ 22 wks 11/11/2013 04/16/2014 Hypertension in , antepartum 09/19/2013 01/08/2014 DVT prophylaxis 12/25/2012 09/04/2013 Overview: IPCs DISPOSITION AND FOLLOW-UP 12/25/20122013 Overview: Full code Retinal detachment 10/26/2012 12/25/2012 documented as of this encounter (statuses as of 01/25/2023) [facility] History of Past illness Narrative* Problem [...] 02/25/2014 morning - On fentanyl gtt per TACTICAL DEBRIEFER OFFICER Plan: - TACTICAL DEBRIEFER OFFICER team to round on patient and manage [...] arise --- Follows with Dr. Garcia at [facility] Plan: - Continuous monitoring - F/u TACTICAL DEBRIEFER OFFICER recs GBS (group B Streptococcus carrier), +RV culture @ 22 wks 11/11/2013 04/16/2014 Hypertension in , antepartum 09/19/2013 01/08/2014 DVT prophylaxis 12/25/2012 09/04/2013 Overview: IPCs DISPOSITION AND FOLLOW-UP 12/25/20122013 Overview: Full code Retinal detachment 10/26/2012 12/25/2012 documented as of this encounter (statuses as of 01/26/2023) [facility] History of Past illness Narrative* Problem [...] 02/25/2014 morning - On fentanyl gtt per TACTICAL DEBRIEFER OFFICER Plan: - TACTICAL DEBRIEFER OFFICER team to round on patient and manage [...] arise --- Follows with Dr. Garcia at [facility] Plan: - Continuous monitoring - F/u TACTICAL DEBRIEFER OFFICER recs GBS (group B Streptococcus carrier), +RV culture @ 22 wks 11/11/2013 04/16/2014 Hypertension in , antepartum 09/19/2013 01/08/2014 DVT prophylaxis 12/25/2012 09/04/2013 Overview: IPCs DISPOSITION AND FOLLOW-UP 12/25/20122013 Overview: Full code Retinal detachment 10/26/2012 12/25/2012 documented as of this encounter (statuses as of 01/26/2023) [facility] History of Past illness Narrative* Problem [...] 02/25/2014 morning - On fentanyl gtt per TACTICAL DEBRIEFER OFFICER Plan: - TACTICAL DEBRIEFER OFFICER team to round on patient and manage [...] arise --- Follows with Dr. Garcia at [facility] Plan: - Continuous monitoring - F/u TACTICAL DEBRIEFER OFFICER recs GBS (group B Streptococcus carrier), +RV culture @ 22 wks 11/11/2013 04/16/2014 Hypertension in , antepartum 09/19/2013 01/08/2014 DVT prophylaxis 12/25/2012 09/04/2013 Overview: IPCs DISPOSITION AND FOLLOW-UP 12/25/20122013 Overview: Full code Retinal detachment 10/26/2012 12/25/2012 documented as of this encounter (statuses as of 02/01/2023) [facility]03[facility] History of Present illness Narrative* Abelardo [...] (BAQSIMI) 3 mg/actuation nasal spray Use 1 [place] in the nose as needed for low [...] as needed Abelardo La documented in this encounterBellevue Hospital03-09-2023 Miscellaneous Notes* Telephone Encounter - Florence Murillo RN - 11/03/2022 3:24 PM EST Situation handled in different encounter * Telephone Encounter - Jackeline Maria - 11/02/2022 4:28 PM EST Patient has been identified by name and date of : Yes Type of form: Pump and CGM Physician's order/record request/demo sheet/insurance Form received via: Fax When form is completed, fax form to fax number provided. Form has been forwarded to: Provider's mailbox. Provider name: Dr Joshua Maria documented in this encounterBellevue Hospital02-25-2023 History of Present illness Narrative* Mary [...] (BAQSIMI) 3 mg/actuation nasal spray Use 1 [place] in the nose as needed for low [...] injection (TORADOL) 60 mg INTRAMUSCULAR ONCE Abelardo Carolina La MD Social History Tobacco Use Smoking [...] INTRAMUSCULAR SOLUTION Abelardo La documented in this encounterBellevue Hospital02-07-2023 History of Present illness Narrative* Leesa Huddleston PA-C - 10/04/2022 2:00 PM EST DATE OF SERVICE: 10/04/2022 PATIENT NAME: Kathleen Villa : 1995 AGE: 27 y.o. CLINIC NUMBER: [id number] Visit type: Established patient Chief Complaint Patient [...] 2:01 PM REFERRING MD: documented in this encounterSOhioHealth Marion General [id number] Miscellaneous Notes* Telephone Encounter - David De Jesus RN - 09/07/2022 4:16 PM EST Completed PA via [employer]. CaseId:[id number]; Status:Approved; Valid08/08/2022 - 09/07/2023; Patient notified. * Telephone Encounter - Ira Wilburn Pss - 09/06/2022 3:12 PM EST Pt's insurance will no longer cover any contour products. She needs scripts for new meter, test strips and lancets sent to [facility] on file. States her insurance will cover just about anything other than contour products. She requests a brand that is compatible with her medtronic pump, if possible. documented in this encounterBellevue Hospital12-22-2022 Miscellaneous Notes* Telephone Encounter - Lisa Aguilar LPN - 08/18/2022 3:37 PM EST Faxed completed form, last 2 Visit Progress Notes and pump upload to [facility] medical. Lisa Aguilar LPN * Telephone Encounter - Autumn Valadez APRN.PIE CRIMPING MACHINE OPERATOR - 08/18/2022 3:28 PM EST Formsigned Autumn Valadez APRN.FRIEDA * Telephone Encounter - [...] PM EST Forms received via fax from [facility] Medical for CGM and pump supplies. [facility] is requiring Last 2 office visit [...] you, Lisa Aguilar LPN documented in this encounterBellevue Hospital12-20-2022 History of Present illness Narrative* Autumn Valadez APRN.PIE CRIMPING MACHINE OPERATOR - 08/16/2022 2:45 PM EST Images from [...] (BAQSIMI) 3 mg/actuation nasal spray Use 1 [place] in the nose as needed for low [...] Other maternal great grandma I reviewed the Clutch Assembler's notes with this visit for vital signs, current allergies, medications, electronic medical record, lab(s), outside lab(s), and or back office lab(s) results, historyof vaccinations, and chief complaints. I edited the information obtained, as required. HISTORY OF PRESENT ILLNESS Last endo office visit: 07/11/[address] Leiws New patient to me Kathleen Villa is a [...] patient is currently taking Novolog insulin via [employer] Geneticstronic 630G insulin pump in manual mode at [...] hyperglycemia, with long-term current use of insulin ([facility]) (primary encounter diagnosis) (Z96.41) Insulin pump status [...] November with Dr. Lewis 6 mo with pa Autumn Valadez APRN.[facility] Endocrinology & Metabolism Mitchell documented in this encounterBellevue Hospital11-14-2022 History of Present illness Narrative* Kvng Lewis MD - 07/11/2022 11:00 AM EST VIRTUAL VISIT DIABETES NOTE Reason for Consultation: DM Type 1 HISTORY OF PRESENT ILLNESS: Ms. Villa is a 26 year old female presenting here today for a follow up of DM Type 1. She would like to transfer to care Dr. Khoury Lives in [place] Type 1 dx age 14 ( 12 [...] due to convenient location She lives in [place]. Dr. Khoury was managing patient during her [...] mouth every 6 hours as needed. lancets ([employer]CH DELi[employer] LANCETS) 30 gauge 10 x daily DX [...] year old female is being evaluated via [facility] for DM1 Complicated patient with complex [...] encourage patient to schedule appt with our ASSEMBLER HYDRAULIC BACKHOE Autumn Valadez in the next 1-3 mos in person See me after 3 mos after h/o abnormal TSH I have place another order for TSH/ Free T4 and TPO AB Will also place another order for HGa1c as it is has been over 6mos Kvng Lewis MD I spent a total of 40 minutes on the date of the service which included uzls-[id number] patient care, completing clinical documentation, performing a [...] Yes Heat Intolerance?: Yes documented in this encounterBellevue Hospital11-09-2022 Miscellaneous Notes* Telephone Encounter - Lisa Aguilar LPN - 07/06/2022 12:21 PM EST Called patient, left message to call office. Also, sent detailed MyChart message re: upcoming Virtual appointment. Lisa Aguilar LPN * Telephone Encounter - Ira Wilburn Pss - 07/06/2022 12:15 PM EST Pt calling, says she is returning call from nurse, does not remember the name of the nurse. She can be reached at [phone] documented in this [facility]10-20-2022 Miscellaneous Notes* Telephone Encounter - Anahi Benito MA - 06/16/2022 9:29 AM EDT Received [employer] form and placed on physicians desk for review. Form faxed with confirmation. documented in this [facility]10-12-2022 Miscellaneous Notes* Telephone Encounter - David [...] fax form to fax number provided # [phone] Form has been forwarded to: SILVINO/nidia documented in this [facility]10-11-[facility] History of Present illness Narrative* Phoebe Richter , AOC DIRECTOR INTELLIGENCE OFFICER.PIE CRIMPING MACHINE OPERATOR - 06/07/2022 2:25 PM EDT Kathleen Villa [...] done swinging. RTC- 1 yr/prn Phoebe Mckeon APRN.PIE CRIMPING MACHINE OPERATOR documented in this encounterBellevue Hospital10-11-2022 Nurse Note* Alysha Petersen MA - 06/07/2022 2:11 PM EDT Pt is here today for JASON. Pt has no concerns at this time. documented in this encounterBellevue Hospital09-16-2022 Miscellaneous Notes* Telephone Encounter - Anahi Benito MA - 05/13/2022 12:23 PM EDT Received [employer] Medical forms for pump/cgm supplies. Patient next visit is in June and has not been seen since 08/24/2021. [employer] message sent to patient requesting pump upload. documented in this encounterBellevue Hospital09-15-2022 Nurse Note* Zohreh Rodarte LPN - 05/12/2022 10:15 AM EDT Pt given 2 doses of Rocephin 250 mg, total 500 mg in the left buttock. Pt tolerated injection well.BP 110/70. documented in this encounterBellevue Hospital09-15-2022 History of Present illness Narrative* Phoebe Mckeon APRN.CNP - 05/12/2022 9:34 AM EDT . documented in this encounterBellevue Hospital09-13-2022 Miscellaneous Notes* Telephone Encounter - Dori [...] wks for a JASON Thanks Phoebe Mckeon APRN.CNP documented in this encounterBellevue Hospital09-07-2022 Miscellaneous Notes* Telephone Encounter - Sol [...] for insulin aspart U-100 documented in this encounterBellevue Hospital09-06-2022 Miscellaneous Notes* Telephone Encounter - Darnell Vera RN - 05/03/2022 11:49 AM EDT Pended - please file if appropriate. documented in this encounterBellevue Hospital09-06-2022 Miscellaneous Notes* Telephone Encounter - Clemencia [...] needs scheduled appointment Yes documented in this encounterCleveland [id number] Instructions* Patient Instructions* Dashawn Cain APRN.CNP - 04/18/2022 8:39 AM EDT Labs ordered- urine tests. Have done at Urgent care or main hospital. We will call with results. Referral placed to EQUIPMENT OPERATOR clinic at [facility]. This should get in contact with you within the next couple weeks if not you may call central scheduling at [phone] to inquire about your appointment. documented in this encounterBellevue Hospital08-22-2022 History of Present illness Narrative* Dashawn Cain APRN.CNP - 04/18/2022 8:22 AM EDT This note was created using StartSpanish. Subjective Kathleen Villa is a 26 year [...] apparently. She does not have a current TACTICAL DEBRIEFER OFFICER. Her previous EQUIPMENT OPERATOR is Dr. Kristin Garcia at [facility]. She had noticed some mild [...] TABLET This note was partially generated using [employer] voice recognition system. Dashawn Cain APRN.PIE CRIMPING MACHINE OPERATOR documented in this encounterBellevue Hospital07-15-2022 History of Present illness Narrative* Teressa Mckoy RN - 03/11/2022 1:10 PM EDT 2mg/2ml Activase instilled in port at 1207. Blood return obtained at 1255. 10ml withdrawn and discarded. Port flushed with saline and heparin per protocol. documented in this [facility]07-11-2022 History of Present illness Narrative* Teressa Mckoy RN - 03/07/2022 4:38 PM EDT Unable to obtain blood return. Will notify ordering practitioner for Activase order. Patient reports unable to stay today. Will return Monday03/11/22. documented in this encounterBellevue Hospital06-07-2022 [facility]05-06-2022 Miscellaneous Notes* Telephone Encounter - Anahi Haywood MA - 12/31/2021 11:44 AM EDT Received [facility] Medical request for most recent office notes and CGM data. Office notes printed for physicians signature. Called patient on mobile number and advised if she can upload her pump. Patient stated she is not at home and will upload as soon as she can. Advised patient no problem and she cansend [email or web address] message once upload is completed. Patient voiced understanding. documented in this encounterBellevue Hospital05-05-2022 [facility]05-03-2022 Evaluation + Plan note Diagnostic Tests Pending * Complete Metabolic Panel 12/28/21 * Lipase Level 12/28/21 [facility] 04-30-2022 [facility]04-30-2022 Miscellaneous Notes* Telephone Encounter - Velia Kaur MD - 12/25/2021 12:42 PM EDT 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 She is out of infusion sets for [...] she has any difficulties. documented in this encounterBellevue Hospital04-11-2022 Miscellaneous Notes* Telephone Encounter - Loretta Brown Ma - 12/06/2021 9:00 AM EDT received a fax from [employer] Patient has been approved for insulin aspart U-100 (NOVOLOG U-100 INSULIN ASPART) 100 unit/mL from 11/02/2021 to 12/04/2022 No further action is needed documented in this encounterBellevue Hospital02-28-2022 [facility]02-25-2022 [facility]02-15-2022 Miscellaneous Notes* Telephone Encounter - Jess Guardado - 10/12/2021 10:25 AM EST Left VM for patient to call office to offer sooner apt with JOCELYNE Mcdonald. documented in this encounterBellevue Hospital10-09-2021 [facility]06-02-2016 History of Past illness Narrative* Problem [...] 02/25/2014 morning - On fentanyl gtt per TACTICAL DEBRIEFER OFFICER Plan: - TACTICAL DEBRIEFER OFFICER team to round on patient and manage [...] arise --- Follows with Dr. Garcia at [facility] Plan: - Continuous monitoring - F/u TACTICAL DEBRIEFER OFFICER recs GBS (group B Streptococcus carrier), +RV culture @ 22 wks 11/11/2013 04/16/2014 Hypertension in , antepartum 09/19/2013 01/08/2014 DVT prophylaxis 12/25/2012 09/04/2013 Overview: IPCs DISPOSITION AND FOLLOW-UP 12/25/20122013 Overview: Full code Retinal detachment 10/26/2012 12/25/2012 documented as of this encounter (statuses as of 11/26/2021) [facility] History of Past illness Narrative* Problem [...] 02/25/2014 morning - On fentanyl gtt per [employer] OFFICER Plan: - [employer] team to round on patient and manage [...] arise --- Follows with Dr. Garcia at [facility] Plan: - Continuous monitoring - F/u [employer] OFFICER recs GBS (group B Streptococcus carrier), +RV culture @ 22 wks 11/11/2013 04/16/2014 Hypertension in , antepartum 09/19/2013 01/08/2014 DVT prophylaxis 12/25/2012 09/04/2013 Overview: IPCs DISPOSITION AND FOLLOW-UP 12/25/20122013 Overview: Full code Retinal detachment 10/26/2012 12/25/2012 documented as of this encounter (statuses as of 11/27/2021) [facility] History of Past illness Narrative* Problem [...] 02/25/2014 morning - On fentanyl gtt per [employer] OFFICER Plan: - [employer] OFFICER team to round on patient and manage [...] arise --- Follows with Dr. Garcia at [facility] Plan: - Continuous monitoring - F/u [employer] OFFICER recs GBS (group B Streptococcus carrier), +RV culture @ 22 wks 11/11/2013 04/16/2014 Hypertension in , antepartum 09/19/2013 01/08/2014 DVT prophylaxis 12/25/2012 09/04/2013 Overview: IPCs DISPOSITION AND FOLLOW-UP 12/25/20122013 Overview: Full code Retinal detachment 10/26/2012 12/25/2012 documented as of this encounter (statuses as of 12/06/2021) [facility] History of Past illness Narrative* Problem [...] 02/25/2014 morning - On fentanyl gtt per [employer] OFFICER Plan: - [employer] OFFICER team to round on patient and manage [...] arise --- Follows with Dr. Garcia at [facility] Plan: - Continuous monitoring - F/u [employer] OFFICER recs GBS (group B Streptococcus carrier), +RV culture @ 22 wks 11/11/2013 04/16/2014 Hypertension in , antepartum 09/19/2013 01/08/2014 DVT prophylaxis 12/25/2012 09/04/2013 Overview: IPCs DISPOSITION AND FOLLOW-UP 12/25/20122013 Overview: Full code Retinal detachment 10/26/2012 12/25/2012 documented as of this encounter (statuses as of 12/26/2021) [facility] History of Past illness Narrative* Problem [...] 02/25/2014 morning - On fentanyl gtt per [employer] OFFICER Plan: - [employer] OFFICER team to round on patient and manage [...] arise --- Follows with Dr. Garcia at [facility] Plan: - Continuous monitoring - F/u [employer] OFFICER recs GBS (group B Streptococcus carrier), +RV culture @ 22 wks 11/11/2013 04/16/2014 Hypertension in , antepartum 09/19/2013 01/08/2014 DVT prophylaxis 12/25/2012 09/04/2013 Overview: IPCs DISPOSITION AND FOLLOW-UP 12/25/20122013 Overview: Full code Retinal detachment 10/26/2012 12/25/2012 documented as of this encounter (statuses as of 12/27/2021) [facility] History of Past illness Narrative* Problem [...] 02/25/2014 morning - On fentanyl gtt per [employer] OFFICER Plan: - [employer] OFFICER team to round on patient and manage [...] arise --- Follows with Dr. Garcia at [facility] Plan: - Continuous monitoring - F/u [employer] OFFICER recs GBS (group B Streptococcus carrier), +RV culture @ 22 wks 11/11/2013 04/16/2014 Hypertension in , antepartum 09/19/2013 01/08/2014 DVT prophylaxis 12/25/2012 09/04/2013 Overview: IPCs DISPOSITION AND FOLLOW-UP 12/25/20122013 Overview: Full code Retinal detachment 10/26/2012 12/25/2012 documented as of this encounter (statuses as of 12/29/2021) [facility] History of Past illness Narrative* Problem [...] 02/25/2014 morning - On fentanyl gtt per [employer] OFFICER Plan: - [employer] OFFICER team to round on patient and manage [...] arise --- Follows with Dr. Garcia at [facility] Plan: - Continuous monitoring - F/u [employer] OFFICER recs GBS (group B Streptococcus carrier), +RV culture @ 22 wks 11/11/2013 04/16/2014 Hypertension in , antepartum 09/19/2013 01/08/2014 DVT prophylaxis 12/25/2012 09/04/2013 Overview: IPCs DISPOSITION AND FOLLOW-UP 12/25/20122013 Overview: Full code Retinal detachment 10/26/2012 12/25/2012 documented as of this encounter (statuses as of 01/28/2022) [facility] History of Past illness Narrative* Problem [...] 02/25/2014 morning - On fentanyl gtt per [employer] OFFICER Plan: - [employer] OFFICER team to round on patient and manage [...] arise --- Follows with Dr. Garcia at [facility] Plan: - Continuous monitoring - F/u [employer] OFFICER recs GBS (group B Streptococcus carrier), +RV culture @ 22 wks 11/11/2013 04/16/2014 Hypertension in , antepartum 09/19/2013 01/08/2014 DVT prophylaxis 12/25/2012 09/04/2013 Overview: IPCs DISPOSITION AND FOLLOW-UP 12/25/20122013 Overview: Full code Retinal detachment 10/26/2012 12/25/2012 documented as of this encounter (statuses as of 01/30/2022) [facility] History of Past illness Narrative* Problem [...] 02/25/2014 morning - On fentanyl gtt per [employer] OFFICER Plan: - [employer] OFFICER team to round on patient and manage [...] arise --- Follows with Dr. Garcia at [facility] Plan: - Continuous monitoring - F/u [employer] OFFICER recs GBS (group B Streptococcus carrier), +RV culture @ 22 wks 11/11/2013 04/16/2014 Hypertension in , antepartum 09/19/2013 01/08/2014 DVT prophylaxis 12/25/2012 09/04/2013 Overview: IPCs DISPOSITION AND FOLLOW-UP 12/25/20122013 Overview: Full code Retinal detachment 10/26/2012 12/25/2012 documented as of this encounter (statuses as of 02/24/2022) [facility] History of Past illness Narrative* Problem [...] 02/25/2014 morning - On fentanyl gtt per [employer] OFFICER Plan: - [employer] OFFICER team to round on patient and manage [...] arise --- Follows with Dr. Garcia at [facility] Plan: - Continuous monitoring - F/u [employer]EF[employer] OFFICER recs GBS (group B Streptococcus carrier), +RV culture @ 22 wks 11/11/2013 04/16/2014 Hypertension in , antepartum 09/19/2013 01/08/2014 DVT prophylaxis 12/25/2012 09/04/2013 Overview: IPCs DISPOSITION AND FOLLOW-UP 12/25/20122013 Overview: Full code Retinal detachment 10/26/2012 12/25/2012 documented as of this encounter (statuses as of 03/01/2022) [facility] History of Past illness Narrative* Problem [...] 02/25/2014 morning - On fentanyl gtt per [employer] OFFICER Plan: - [employer] OFFICER team to round on patient and manage [...] arise --- Follows with Dr. Garcia at [facility] Plan: - Continuous monitoring - F/u [employer] OFFICER recs GBS (group B Streptococcus carrier), +RV culture @ 22 wks 11/11/2013 04/16/2014 Hypertension in , antepartum 09/19/2013 01/08/2014 DVT prophylaxis 12/25/2012 09/04/2013 Overview: IPCs DISPOSITION AND FOLLOW-UP 12/25/20122013 Overview: Full code Retinal detachment 10/26/2012 12/25/2012 documented as of this encounter (statuses as of 03/07/2022) [facility] History of Past illness Narrative* Problem [...] 02/25/2014 morning - On fentanyl gtt per [employer] OFFICER Plan: - [employer] OFFICER team to round on patient and manage [...] arise --- Follows with Dr. Garcia at [facility] Plan: - Continuous monitoring - F/u [employer] OFFICER recs GBS (group B Streptococcus carrier), +RV culture @ 22 wks 11/11/2013 04/16/2014 Hypertension in , antepartum 09/19/2013 01/08/2014 DVT prophylaxis 12/25/2012 09/04/2013 Overview: IPCs DISPOSITION AND FOLLOW-UP 12/25/20122013 Overview: Full code Retinal detachment 10/26/2012 12/25/2012 documented as of this encounter (statuses as of 03/10/2022) [facility] History of Past illness Narrative* Problem [...] 02/25/2014 morning - On fentanyl gtt per [employer] OFFICER Plan: - [employer] OFFICER team to round on patient and manage [...] arise --- Follows with Dr. Garcia at [facility] Plan: - Continuous monitoring - F/u [employer] DEB[employer]EF[employer] OFFICER recs GBS (group B Streptococcus carrier), +RV culture @ 22 wks 11/11/2013 04/16/2014 Hypertension in , antepartum 09/19/2013 01/08/2014 DVT prophylaxis 12/25/2012 09/04/2013 Overview: IPCs DISPOSITION AND FOLLOW-UP 12/25/20122013 Overview: Full code Retinal detachment 10/26/2012 12/25/2012 documented as of this encounter (statuses as of 03/11/2022) [facility] History of Past illness Narrative* Problem Noted Date Resolved Date 01/28/2016 03/06/2017 Pre-existing type 1 diabetes mellitus in in first trimester 08/05/2015 10/03/2018 Fluid overload 12/10/2014 12/15/2014 Overview: Postoperative fluid overload A/P: Positive fluid balance. cont diuresis Tachycardia, unspecified 12/10/2014 04/17/2 015 Overview: Noted to have sinus tachycardia introap and post op A/P: HR improved with BB. Cont BB Anxiety 12/10/2014 12/13/2014 Overview: anxious at times, flat affect shaking legs post op A/p: improving, PRN xanax , resolved DVT prophylaxis 02/25/2014 04/16/2014 Overview: - IPCs care and examination 02/25/2014 04/16/2014 Overview: - Delivered by on 02/25/2014 morning - On fentanyl gtt per [employer] OFFICER Plan: - [employer] OFFICER team to round on patient and manage [...] arise --- Follows with Dr. Garcia at [facility] Plan: - Continuous monitoring - F/u [employer] DEB[employer] OFFICER recs GBS (group B Streptococcus carrier), +RV culture @ 22 wks 11/11/2013 04/16/2014 Hypertension in , antepartum 09/19/2013 01/08/2014 DVT prophylaxis 12/25/2012 09/04/2013 Overview: IPCs DISPOSITION AND FOLLOW-UP 12/25/20122013 Overview: Full code Retinal detachment 10/26/2012 12/25/2012 documented as of this encounter (statuses as of 04/18/2022) [facility] History of Past illness Narrative* Problem [...] 02/25/2014 morning - On fentanyl gtt per [employer] OFFICER Plan: - [employer] OFFICER team to round on patient and manage [...] arise --- Follows with Dr. Garcia at [facility] Plan: - Continuous monitoring - F/u T[employer] DEB[employer]EF[employer] OFFICER recs GBS (group B Streptococcus carrier), +RV culture @ 22 wks 11/11/2013 04/16/2014 Hypertension in , antepartum 09/19/2013 01/08/2014 DVT prophylaxis 12/25/2012 09/04/2013 Overview: IPCs DISPOSITION AND FOLLOW-UP 12/25/20122013 Overview: Full code Retinal detachment 10/26/2012 12/25/2012 documented as of this encounter (statuses as of 05/03/2022) [facility] History of Past illness Narrative* Problem [...] 02/25/2014 morning - On fentanyl gtt per [employer]EF[employer] OFFICER Plan: - [employer]BRIEF[employer] OFFICER team to round on patient and manage [...] arise --- Follows with Dr. Garcia at [facility] Plan: - Continuous monitoring - F/u T[employer] DEB[employer]EF[employer] OFFICER recs GBS (group B Streptococcus carrier), +RV culture @ 22 wks 11/11/2013 04/16/2014 Hypertension in , antepartum 09/19/2013 01/08/2014 DVT prophylaxis 12/25/2012 09/04/2013 Overview: IPCs DISPOSITION AND FOLLOW-UP 12/25/20122013 Overview: Full code Retinal detachment 10/26/2012 12/25/2012 documented as of this encounter (statuses as of 05/03/2022) [facility] History of Past illness Narrative* Problem [...] 02/25/2014 morning - On fentanyl gtt per [employer] OFFICER Plan: - T[employer] DEBRIEF[employer] OFFICER team to round on patient and manage [...] arise --- Follows with Dr. Garcia at [facility] Plan: - Continuous monitoring - F/u T[employer] DEBRIEF[employer] OFFICER recs GBS (group B Streptococcus carrier), +RV culture @ 22 wks 11/11/2013 04/16/2014 Hypertension in , antepartum 09/19/2013 01/08/2014 DVT prophylaxis 12/25/2012 09/04/2013 Overview: IPCs DISPOSITION AND FOLLOW-UP 12/25/20122013 Overview: Full code Retinal detachment 10/26/2012 12/25/2012 documented as of this encounter (statuses as of 05/04/2022) [facility] History of Past illness Narrative* Problem [...] 02/25/2014 morning - On fentanyl gtt per [employer] OFFICER Plan: - [employer]EF[employer] OFFICER team to round on patient and manage [...] arise --- Follows with Dr. Garcia at [facility] Plan: - Continuous monitoring - F/u T[employer] DEBRIEF[employer] OFFICER recs GBS (group B Streptococcus carrier), +RV culture @ 22 wks 11/11/2013 04/16/2014 Hypertension in , antepartum 09/19/2013 01/08/2014 DVT prophylaxis 12/25/2012 09/04/2013 Overview: IPCs DISPOSITION AND FOLLOW-UP 12/25/20122013 Overview: Full code Retinal detachment 10/26/2012 12/25/2012 documented as of this encounter (statuses as of 05/10/2022) [facility] History of Past illness Narrative* Problem [...] 02/25/2014 morning - On fentanyl gtt per [employer] OFFICER Plan: - [employer] OFFICER team to round on patient and manage [...] arise --- Follows with Dr. Garcia at [facility] Plan: - Continuous monitoring - F/u T[employer] DEBRIEF[employer] OFFICER recs GBS (group B Streptococcus carrier), +RV culture @ 22 wks 11/11/2013 04/16/2014 Hypertension in , antepartum 09/19/2013 01/08/2014 DVT prophylaxis 12/25/2012 09/04/2013 Overview: IPCs DISPOSITION AND FOLLOW-UP 12/25/20122013 Overview: Full code Retinal detachment 10/26/2012 12/25/2012 documented as of this encounter (statuses as of 05/11/2022) [facility] History of Past illness Narrative* Problem [...] 02/25/2014 morning - On fentanyl gtt per [employer] OFFICER Plan: - [employer] OFFICER team to round on patient and manage [...] arise --- Follows with Dr. Garcia at [facility] Plan: - Continuous monitoring - F/u T[employer] DEB[employer]EF[employer] OFFICER recs GBS (group B Streptococcus carrier), +RV culture @ 22 wks 11/11/2013 04/16/2014 Hypertension in , antepartum 09/19/2013 01/08/2014 DVT prophylaxis 12/25/2012 09/04/2013 Overview: IPCs DISPOSITION AND FOLLOW-UP 12/25/20122013 Overview: Full code Retinal detachment 10/26/2012 12/25/2012 documented as of this encounter (statuses as of 05/12/2022) [facility] History of Past illness Narrative* Problem [...] 02/25/2014 morning - On fentanyl gtt per [employer] OFFICER Plan: - [employer] OFFICER team to round on patient and manage [...] arise --- Follows with Dr. Garcia at [facility] Plan: - Continuous monitoring - F/u T[employer] DEB[employer]EFER OFFICER recs GBS (group B Streptococcus carrier), +RV culture @ 22 wks 11/11/2013 04/16/2014 Hypertension in , antepartum 09/19/2013 01/08/2014 DVT prophylaxis 12/25/2012 09/04/2013 Overview: IPCs DISPOSITION AND FOLLOW-UP 12/25/20122013 Overview: Full code Retinal detachment 10/26/2012 12/25/2012 documented as of this encounter (statuses as of 05/13/2022) [facility] History of Past illness Narrative* Problem [...] 02/25/2014 morning - On fentanyl gtt per [employer] OFFICER Plan: - [employer] OFFICER team to round on patient and manage [...] arise --- Follows with Dr. Garcia at [facility] Plan: - Continuous monitoring - F/u T[employer] DEB[employer]EF[employer] OFFICER recs GBS (group B Streptococcus carrier), +RV culture @ 22 wks 11/11/2013 04/16/2014 Hypertension in , antepartum 09/19/2013 01/08/2014 DVT prophylaxis 12/25/2012 09/04/2013 Overview: IPCs DISPOSITION AND FOLLOW-UP 12/25/20122013 Overview: Full code Retinal detachment 10/26/2012 12/25/2012 documented as of this encounter (statuses as of 05/30/2022) [facility] History of Past illness Narrative* Problem [...] 02/25/2014 morning - On fentanyl gtt per [employer] OFFICER Plan: - [employer] OFFICER team to round on patient and manage [...] arise --- Follows with Dr. Garcia at [facility] Plan: - Continuous monitoring - F/u T[employer] DEBRIEFER OFFICER recs GBS (group B Streptococcus carrier), +RV culture @ 22 wks 11/11/2013 04/16/2014 Hypertension in , antepartum 09/19/2013 01/08/2014 DVT prophylaxis 12/25/2012 09/04/2013 Overview: IPCs DISPOSITION AND FOLLOW-UP 12/25/20122013 Overview: Full code Retinal detachment 10/26/2012 12/25/2012 documented as of this encounter (statuses as of 06/07/2022) [facility] History of Past illness Narrative* Problem [...] 02/25/2014 morning - On fentanyl gtt per [employer] OFFICER Plan: - [employer]EF[employer] OFFICER team to round on patient and manage [...] arise --- Follows with Dr. Garcia at [facility] Plan: - Continuous monitoring - F/u T[employer] DEBRIEFER OFFICER recs GBS (group B Streptococcus carrier), +RV culture @ 22 wks 11/11/2013 04/16/2014 Hypertension in , antepartum 09/19/2013 01/08/2014 DVT prophylaxis 12/25/2012 09/04/2013 Overview: IPCs DISPOSITION AND FOLLOW-UP 12/25/20122013 Overview: Full code Retinal detachment 10/26/2012 12/25/2012 documented as of this encounter (statuses as of 06/08/2022) [facility] History of Past illness Narrative* Problem [...] 02/25/2014 morning - On fentanyl gtt per [employer]EF[employer] OFFICER Plan: - [employer] OFFICER team to round on patient and manage [...] any indications arise --- Follows with Dr. Gracia at [facility] Plan: - Continuous monitoring - F/u T[employer] DEBRIEF[employer] OFFICER recs GBS (group B Streptococcus carrier), +RV culture @ 22 wks 11/11/2013 04/16/2014 Hypertension in , antepartum 09/19/2013 01/08/2014 DVT prophylaxis 12/25/2012 09/04/2013 Overview: IPCs DISPOSITION AND FOLLOW-UP 12/25/20122013 Overview: Full code Retinal detachment 10/26/2012 12/25/2012 documented as of this encounter (statuses as of 06/16/2022) [facility] History of Past illness Narrative* Problem [...] 02/25/2014 morning - On fentanyl gtt per [employer] OFFICER Plan: - [employer] OFFICER team to round on patient and manage [...] arise --- Follows with Dr. Garcia at [facility] Plan: - Continuous monitoring - F/u T[employer] DEB[employer]EF[employer] OFFICER recs GBS (group B Streptococcus carrier), +RV culture @ 22 wks 11/11/2013 04/16/2014 Hypertension in , antepartum 09/19/2013 01/08/2014 DVT prophylaxis 12/25/2012 09/04/2013 Overview: IPCs DISPOSITION AND FOLLOW-UP 12/25/20122013 Overview: Full code Retinal detachment 10/26/2012 12/25/2012 documented as of this encounter (statuses as of 07/12/2022) [facility] History of Past illness Narrative* Problem [...] 02/25/2014 morning - On fentanyl gtt per [employer] OFFICER Plan: - [employer] DEBRIEFER OFFICER team to round on patient and manage [...] arise --- Follows with Dr. Garcia at [facility] Plan: - Continuous monitoring - F/u T[employer] DEB[employer]EFER OFFICER recs GBS (group B Streptococcus carrier), +RV culture @ 22 wks 11/11/2013 04/16/2014 Hypertension in , antepartum 09/19/2013 01/08/2014 DVT prophylaxis 12/25/2012 09/04/2013 Overview: IPCs DISPOSITION AND FOLLOW-UP 12/25/20122013 Overview: Full code Retinal detachment 10/26/2012 12/25/2012 documented as of this encounter (statuses as of 07/25/2022) [facility] History of Past illness Narrative* Problem [...] 02/25/2014 morning - On fentanyl gtt per [employer] OFFICER Plan: - [employer]EF[employer] OFFICER team to round on patient and manage [...] arise --- Follows with Dr. Garcia at [facility] Plan: - Continuous monitoring - F/u T[employer] DEBRIEFER OFFICER recs GBS (group B Streptococcus carrier), +RV culture @ 22 wks 11/11/2013 04/16/2014 Hypertension in , antepartum 09/19/2013 01/08/2014 DVT prophylaxis 12/25/2012 09/04/2013 Overview: IPCs DISPOSITION AND FOLLOW-UP 12/25/20122013 Overview: Full code Retinal detachment 10/26/2012 12/25/2012 documented as of this encounter (statuses as of 08/05/2022) [facility] History of Past illness Narrative* Problem [...] 02/25/2014 morning - On fentanyl gtt per [employer] OFFICER Plan: - [employer]EF[employer] OFFICER team to round on patient and manage [...] arise --- Follows with Dr. Garcia at [facility] Plan: - Continuous monitoring - F/u T[employer] DEB[employer]EFER OFFICER recs GBS (group B Streptococcus carrier), +RV culture @ 22 wks 11/11/2013 04/16/2014 Hypertension in , antepartum 09/19/2013 01/08/2014 DVT prophylaxis 12/25/2012 09/04/2013 Overview: IPCs DISPOSITION AND FOLLOW-UP 12/25/20122013 Overview: Full code Retinal detachment 10/26/2012 12/25/2012 documented as of this encounter (statuses as of 08/16/2022) [facility] History of Past illness Narrative* Problem [...] 02/25/2014 morning - On fentanyl gtt per [employer] OFFICER Plan: - [employer]EF[employer] OFFICER team to round on patient and manage [...] arise --- Follows with Dr. Garcia at [facility] Plan: - Continuous monitoring - F/u T[employer] DEBRIEFER OFFICER recs GBS (group B Streptococcus carrier), +RV culture @ 22 wks 11/11/2013 04/16/2014 Hypertension in , antepartum 09/19/2013 01/08/2014 DVT prophylaxis 12/25/2012 09/04/2013 Overview: IPCs DISPOSITION AND FOLLOW-UP 12/25/20122013 Overview: Full code Retinal detachment 10/26/2012 12/25/2012 documented as of this encounter (statuses as of 09/02/2022) [facility] History of Past illness Narrative* Problem [...] 02/25/2014 morning - On fentanyl gtt per [employer] OFFICER Plan: - T[employer] DEBRIEFER OFFICER team to round on patient and manage [...] arise --- Follows with Dr. Garcia at [facility] Plan: - Continuous monitoring - F/u T[employer] DEBRIEFER OFFICER recs GBS (group B Streptococcus carrier), +RV culture @ 22 wks 11/11/2013 04/16/2014 Hypertension in , antepartum 09/19/2013 01/08/2014 DVT prophylaxis 12/25/2012 09/04/2013 Overview: IPCs DISPOSITION AND FOLLOW-UP 12/25/20122013 Overview: Full code Retinal detachment 10/26/2012 12/25/2012 documented as of this encounter (statuses as of 09/07/2022) [facility] History of Past illness Narrative* Problem [...] 02/25/2014 morning - On fentanyl gtt per [employer]EF[employer] OFFICER Plan: - T[employer] DEBRIEFER OFFICER team to round on patient and manage [...] arise --- Follows with Dr. Garcia at [facility] Plan: - Continuous monitoring - F/u T[employer] DEBRIEFER OFFICER recs GBS (group B Streptococcus carrier), +RV culture @ 22 wks 11/11/2013 04/16/2014 Hypertension in , antepartum 09/19/2013 01/08/2014 DVT prophylaxis 12/25/2012 09/04/2013 Overview: IPCs DISPOSITION AND FOLLOW-UP 12/25/20122013 Overview: Full code Retinal detachment 10/26/2012 12/25/2012 documented as of this encounter (statuses as of 09/20/2022) [facility] History of Past illness Narrative* Problem [...] 02/25/2014 morning - On fentanyl gtt per [employer] OFFICER Plan: - T[employer] DEBRIEFER OFFICER team to round on patient and manage [...] arise --- Follows with Dr. Garcia at [facility] Plan: - Continuous monitoring - F/u T[employer] DEBRIEFER OFFICER recs GBS (group B Streptococcus carrier), +RV culture @ 22 wks 11/11/2013 04/16/2014 Hypertension in , antepartum 09/19/2013 01/08/2014 DVT prophylaxis 12/25/2012 09/04/2013 Overview: IPCs DISPOSITION AND FOLLOW-UP 12/25/20122013 Overview: Full code Retinal detachment 10/26/2012 12/25/2012 documented as of this encounter (statuses as of 10/22/2022) [facility] History of Past illness Narrative* Problem [...] 02/25/2014 morning - On fentanyl gtt per [employer] OFFICER Plan: - T[employer] DEBRIEFER OFFICER team to round on patient and manage [...] arise --- Follows with Dr. Garcia at [facility] Plan: - Continuous monitoring - F/u T[employer] DEBRIEFER OFFICER recs GBS (group B Streptococcus carrier), +RV culture @ 22 wks 11/11/2013 04/16/2014 Hypertension in , antepartum 09/19/2013 01/08/2014 DVT prophylaxis 12/25/2012 09/04/2013 Overview: IPCs DISPOSITION AND FOLLOW-UP 12/25/20122013 Overview: Full code Retinal detachment 10/26/2012 12/25/2012 documented as of this encounter (statuses as of 11/03/2022) [facility] History of Past illness Narrative* Problem [...] 02/25/2014 morning - On fentanyl gtt per [employer]EF[employer] OFFICER Plan: - T[employer] DEBRIEFER OFFICER team to round on patient and manage [...] arise --- Follows with Dr. Garcia at [facility] Plan: - Continuous monitoring - F/u TACTICAL DEBRIEFER OFFICER recs GBS (group B Streptococcus carrier), +RV culture @ 22 wks 11/11/2013 04/16/2014 Hypertension in , antepartum 09/19/2013 01/08/2014 DVT prophylaxis 12/25/2012 09/04/2013 Overview: IPCs DISPOSITION AND FOLLOW-UP 12/25/20122013 Overview: Full code Retinal detachment 10/26/2012 12/25/2012 documented as of this encounter (statuses as of 11/07/2022) [facility] History of Past illness Narrative* Problem [...] 02/25/2014 morning - On fentanyl gtt per TACTICAL DEBRIEFER OFFICER Plan: - TACTICAL DEBRIEFER OFFICER team to round on patient and manage care Diabetic ketoacidosis withou t coma associated with type 1 diabetes mellitus 01/08/2014 02/04/2023 Overview: Type 1 diabetes with poor control, frequent DKA episodes --- Throughout the day she takes insulin to keep sugars 80-150 - Presented to [facility] on 01/08/2014 with sub-sternal chest pain [...] arise --- Follows with Dr. Garcia at [facility] Plan: - Continuous monitoring - F/u TACTICAL DEBRIEFER OFFICER recs GBS (group B Streptococcus carrier), +RV culture @ 22 wks 11/11/2013 04/16/2014 Hypertension in , antepartum 09/19/2013 01/08/2014 DVT prophylaxis 12/25/2012 09/04/2013 Overview: IPCs DISPOSITION AND FOLLOW-UP 12/25/20122013 Overview: Full code Retinal detachment 10/26/2012 12/25/2012 documented as of this encounter (statuses as of 02/08/2023) [facility] History of Past illness Narrative* Problem [...] 02/25/2014 morning - On fentanyl gtt per TACTICAL DEBRIEFER OFFICER Plan: - TACTICAL DEBRIEFER OFFICER team to round on patient and manage care Diabetic ketoacidosis withou t coma associated with type 1 diabetes mellitus 01/08/2014 02/04/2023 Overview: Type 1 diabetes with poor control, frequent DKA episodes --- Throughout the day she takes insulin to keep sugars 80-150 - Presented to [facility] on 01/08/2014 with sub-sternal chest pain [...] arise --- Follows with Dr. Garcia at [facility] Plan: - Continuous monitoring - F/u TACTICAL DEBRIEFER OFFICER recs GBS (group B Streptococcus carrier), +RV culture @ 22 wks 11/11/2013 04/16/2014 Hypertension in , antepartum 09/19/2013 01/08/2014 DVT prophylaxis 12/25/2012 09/04/2013 Overview: IPCs DISPOSITION AND FOLLOW-UP 12/25/20122013 Overview: Full code Retinal detachment 10/26/2012 12/25/2012 documented as of this encounter (statuses as of 02/15/2023) [facility] History of Past illness Narrative* Problem [...] 02/25/2014 morning - On fentanyl gtt per TACTICAL DEBRIEFER OFFICER Plan: - TACTICAL DEBRIEFER OFFICER team to round on patient and manage care Diabetic ketoacidosis withou t coma associated with type 1 diabetes mellitus 01/08/2014 02/04/2023 Overview: Type 1 diabetes with poor control, frequent DKA episodes --- Throughout the day she takes insulin to keep sugars 80-150 - Presented to [facility] on 01/08/2014 with sub-sternal chest pain [...] arise --- Follows with Dr. Garcia at [facility] Plan: - Continuous monitoring - F/u TACTICAL DEBRIEFER OFFICER recs GBS (group B Streptococcus c arrier), +RV culture @ 22 wks 11/11/2013 04/16/2014 Hypertension in , antepartum 09/19/2013 01/08/2014 DVT prophylaxis 12/25/2012 09/04/2013 Overview: IPCs DISPOSITION AND FOLLOW-UP 12/25/2012 Overview: Full code Retinal detachment 10/26/2012 3 documented as of this encounter (statuses as of 06/02/2023) [facility] History of Past illness Narrative* Problem [...] 02/25/2014 morning - On fentanyl gtt per TACTICAL DEBRIEFER OFFICER Plan: - TACTICAL DEBRIEFER OFFICER team to round on patient and manage care Diabetic ketoacidosis withou t coma associated with type 1 diabetes mellitus 01/08/2014 02/04/2023 Overview: Type 1 diabetes with poor control, frequent DKA episodes --- Throughout the day she takes insulin to keep sugars 80-150 - Presented to [facility] on 01/08/2014 with sub-sternal chest pain [...] arise --- Follows with Dr. Garcia at [facility] Plan: - Continuous monitoring - F/u TACTICAL DEBRIEFER OFFICER recs GBS (group B Streptococcus c arrier), +RV culture @ 22 wks 11/11/2013 04/16/2014 Hypertension in , antepartum 09/19/2013 01/08/2014 DVT prophylaxis 12/25/2012 09/04/2013 Overview: IPCs DISPOSITION AND FOLLOW-UP 12/25/2012 Overview: Full code Retinal detachment 10/26/2012 3 documented as of this encounter (statuses as of 08/16/2023) [facility] History of Past illness Narrative* Problem [...] 02/25/2014 morning - On fentanyl gtt per TACTICAL DEBRIEFER OFFICER Plan: - TACTICAL DEBRIEFER OFFICER team to round on patient and manage care Diabetic ketoacidosis withou t coma associated with type 1 diabetes mellitus 01/08/2014 02/04/2023 Overview: Type 1 diabetes with poor control, frequent DKA episodes --- Throughout the day she takes insulin to keep sugars 80-150 - Presented to [facility] on 01/08/2014 with sub-sternal chest pain [...] arise --- Follows with Dr. Garcia at [facility] Plan: - Continuous monitoring - F/u TACTICAL DEBRIEFER OFFICER recs GBS (group B Streptococcus c arrier), +RV culture @ 22 wks 11/11/2013 04/16/2014 Hypertension in , antepartum 09/19/2013 01/08/2014 DVT prophylaxis 12/25/2012 09/04/2013 Overview: IPCs DISPOSITION AND FOLLOW-UP 12/25/2012 Overview: Full code Retinal detachment 10/26/2012 3 documented as of this encounter (statuses as of 09/29/2023) [facility] History of Past illness Narrative* Problem [...] 02/25/2014 morning - On fentanyl gtt per TACTICAL DEBRIEFER OFFICER Plan: - TACTICAL DEBRIEFER OFFICER team to round on patient and manage care Diabetic ketoacidosis withou t coma associated with type 1 diabetes mellitus 01/08/2014 02/04/2023 Overview: Type 1 diabetes with poor control, frequent DKA episodes --- Throughout the day she takes insulin to keep sugars 80-150 - Presented to [facility] on 01/08/2014 with sub-sternal chest pain [...] arise --- Follows with Dr. Garcia at [facility] Plan: - Continuous monitoring - F/u TACTICAL DEBRIEFER OFFICER recs GBS (group B Streptococcus c gregorio), +RV culture @ 22 wks 11/11/2013 04/16/2014 Hypertension in , antepartum 09/19/2013 01/08/2014 DVT prophylaxis 12/25/2012 09/04/2013 Overview: IPCs DISPOSITION AND FOLLOW-UP 12/25/2012 Overview: Full code Retinal detachment 10/26/2012 3 documented as of this encounter (statuses as of 09/29/2023) [facility] History of Past illness Narrative* Problem [...] 02/25/2014 morning - On fentanyl gtt per TACTICAL DEBRIEFER OFFICER Plan: - TACTICAL DEBRIEFER OFFICER team to round on patient and manage care Diabetic ketoacidosis withou t coma associated with type 1 diabetes mellitus 01/08/2014 02/04/2023 Overview: Type 1 diabetes with poor control, frequent DKA episodes --- Throughout the day she takes insulin to keep sugars 80-150 - Presented to [facility] on 01/08/2014 with sub-sternal chest pain [...] arise --- Follows with Dr. Garcia at [facility] Plan: - Continuous monitoring - F/u TACTICAL DEBRIEFER OFFICER recs GBS (group B Streptococcus c arrier), +RV culture @ 22 wks 11/11/2013 04/16/2014 Hypertension in , antepartum 09/19/2013 01/08/2014 DVT prophylaxis 12/25/2012 09/04/2013 Overview: IPCs DISPOSITION AND FOLLOW-UP 12/25/2012 Overview: Full code Retinal detachment 10/26/2012 3 documented as of this encounter (statuses as of 10/04/2023) [facility] History of Past illness Narrative* Problem [...] 02/25/2014 morning - On fentanyl gtt per TACTICAL DEBRIEFER OFFICER Plan: - TACTICAL DEBRIEFER OFFICER team to round on patient and manage care Diabetic ketoacidosis withou t coma associated with type 1 diabetes mellitus 01/08/2014 02/04/2023 Overview: Type 1 diabetes with poor control, frequent DKA episodes --- Throughout the day she takes insulin to keep sugars 80-150 - Presented to [facility] on 01/08/2014 with sub-sternal chest pain [...] arise --- Follows with Dr. Garcia at [facility] Plan: - Continuous monitoring - F/u TACTICAL DEBRIEFER OFFICER recs GBS (group B Streptococcus c arrier), +RV culture @ 22 wks 11/11/2013 04/16/2014 Hypertension in , antepartum 09/19/2013 01/08/2014 DVT prophylaxis 12/25/2012 09/04/2013 Overview: IPCs DISPOSITION AND FOLLOW-UP 12/25/2012 Overview: Full code Retinal detachment 10/26/2012 3 documented as of this encounter (statuses as of 10/12/2023) [facility] History of Past illness Narrative* Problem [...] 02/25/2014 morning - On fentanyl gtt per TACTICAL DEBRIEFER OFFICER Plan: - TACTICAL DEBRIEFER OFFICER team to round on patient and manage care Diabetic ketoacidosis withou t coma associated with type 1 diabetes mellitus 01/08/2014 02/04/2023 Overview: Type 1 diabetes with poor control, frequent DKA episodes --- Throughout the day she takes insulin to keep sugars 80-150 - Presented to [facility] on 01/08/2014 with sub-sternal chest pain [...] arise --- Follows with Dr. Garcia at [facility] Plan: - Continuous monitoring - F/u TACTICAL DEBRIEFER OFFICER recs GBS (group B Streptococcus c arrier), +RV culture @ 22 wks 11/11/2013 04/16/2014 Hypertension in , antepartum 09/19/2013 01/08/2014 DVT prophylaxis 12/25/2012 09/04/2013 Overview: IPCs DISPOSITION AND FOLLOW-UP 12/25/2012 Overview: Full code Retinal detachment 10/26/2012 3 documented as of this encounter (statuses as of 10/19/2023) [facility] History of Past illness Narrative* Problem [...] 02/25/2014 morning - On fentanyl gtt per TACTICAL DEBRIEFER OFFICER Plan: - TACTICAL DEBRIEFER OFFICER team to round on patient and manage care Diabetic ketoacidosis withou t coma associated with type 1 diabetes mellitus 01/08/2014 02/04/2023 Overview: Type 1 diabetes with poor control, frequent DKA episodes --- Throughout the day she takes insulin to keep sugars 80-150 - Presented to [facility] on 01/08/2014 with sub-sternal chest pain [...] arise --- Follows with Dr. Garcia at [facility] Plan: - Continuous monitoring - F/u TACTICAL DEBRIEFER OFFICER recs GBS (group B Streptococcus c arrier), +RV culture @ 22 wks 11/11/2013 04/16/2014 Hypertension in , antepartum 09/19/2013 01/08/2014 DVT prophylaxis 12/25/2012 09/04/2013 Overview: IPCs DISPOSITION AND FOLLOW-UP 12/25/2012 Overview: Full code Retinal detachment 10/26/2012 3 documented as of this encounter (statuses as of 10/20/2023) [facility] History of Past illness Narrative* Problem [...] 02/25/2014 morning - On fentanyl gtt per TACTICAL DEBRIEFER OFFICER Plan: - TACTICAL DEBRIEFER OFFICER team to round on patient and manage care Diabetic ketoacidosis withou t coma associated with type 1 diabetes mellitus 01/08/2014 02/04/2023 Overview: Type 1 diabetes with poor control, frequent DKA episodes --- Throughout the day she takes insulin to keep sugars 80-150 - Presented to [facility] on 01/08/2014 with sub-sternal chest pain [...] arise --- Follows with Dr. Garcia at [facility] Plan: - Continuous monitoring - F/u TACTICAL DEBRIEFER OFFICER recs GBS (group B Streptococcus c arrier), +RV culture @ 22 wks 11/11/2013 04/16/2014 Hypertension in , antepartum 09/19/2013 01/08/2014 DVT prophylaxis 12/25/2012 09/04/2013 Overview: IPCs DISPOSITION AND FOLLOW-UP 12/25/2012 Overview: Full code Retinal detachment 10/26/2012 3 documented as of this encounter (statuses as of 10/27/2023) [facility] History of Past illness Narrative* Problem [...] 02/25/2014 morning - On fentanyl gtt per TACTICAL DEBRIEFER OFFICER Plan: - TACTICAL DEBRIEFER OFFICER team to round on patient and manage care Diabetic ketoacidosis withou t coma associated with type 1 diabetes mellitus 01/08/2014 02/04/2023 Overview: Type 1 diabetes with poor control, frequent DKA episodes --- Throughout the day she takes insulin to keep sugars 80-150 - Presented to [facility] on 01/08/2014 with sub-sternal chest pain [...] arise --- Follows with Dr. Garcia at [facility] Plan: - Continuous monitoring - F/u TACTICAL DEBRIEFER OFFICER recs GBS (group B Streptococcus c arrier), +RV culture @ 22 wks 11/11/2013 04/16/2014 Hypertension in , antepartum 09/19/2013 01/08/2014 DVT prophylaxis 12/25/2012 09/04/2013 Overview: IPCs DISPOSITION AND FOLLOW-UP 12/25/2012 Overview: Full code Retinal detachment 10/26/2012 3 documented as of this encounter (statuses as of 11/03/2023) [facility] History of Past illness Narrative* Problem [...] 02/25/2014 morning - On fentanyl gtt per TACTICAL DEBRIEFER OFFICER Plan: - TACTICAL DEBRIEFER OFFICER team to round on patient and manage care Diabetic ketoacidosis withou t coma associated with type 1 diabetes mellitus 01/08/2014 02/04/2023 Overview: Type 1 diabetes with poor control, frequent DKA episodes --- Throughout the day she takes insulin to keep sugars 80-150 - Presented to [facility] on 01/08/2014 with sub-sternal chest pain [...] arise --- Follows with Dr. Garcia at [facility] Plan: - Continuous monitoring - F/u TACTICAL DEBRIEFER OFFICER recs GBS (group B Streptococcus c arrier), +RV culture @ 22 wks 11/11/2013 04/16/2014 Hypertension in , antepartum 09/19/2013 01/08/2014 DVT prophylaxis 12/25/2012 09/04/2013 Overview: IPCs DISPOSITION AND FOLLOW-UP 12/25/2012 Overview: Full code Retinal detachment 10/26/2012 3 documented as of this encounter (statuses as of 11/10/2023) [facility] History of Past illness Narrative* Problem [...] 02/25/2014 morning - On fentanyl gtt per TACTICAL DEBRIEFER OFFICER Plan: - TACTICAL DEBRIEFER OFFICER team to round on patient and manage care Diabetic ketoacidosis withou t coma associated with type 1 diabetes mellitus 01/08/2014 02/04/2023 Overview: Type 1 diabetes with poor control, frequent DKA episodes --- Throughout the day she takes insulin to keep sugars 80-150 - Presented to [facility] on 01/08/2014 with sub-sternal chest pain [...] arise --- Follows with Dr. Garcia at [facility] Plan: - Continuous monitoring - F/u TACTICAL DEBRIEFER OFFICER recs GBS (group B Streptococcus c arrier), +RV culture @ 22 wks 11/11/2013 04/16/2014 Hypertension in , antepartum 09/19/2013 01/08/2014 DVT prophylaxis 12/25/2012 09/04/2013 Overview: IPCs DISPOSITION AND FOLLOW-UP 12/25/2012 Overview: Full code Retinal detachment 10/26/2012 3 documented as of this encounter (statuses as of 12/14/2023) [facility] History of Past illness Narrative* Problem [...] 02/25/2014 morning - On fentanyl gtt per TACTICAL DEBRIEFER OFFICER Plan: - TACTICAL DEBRIEFER OFFICER team to round on patient and manage care Diabetic ketoacidosis withou t coma associated with type 1 diabetes mellitus 01/08/2014 02/04/2023 Overview: Type 1 diabetes with poor control, frequent DKA episodes --- Throughout the day she takes insulin to keep sugars 80-150 - Presented to [facility] on 01/08/2014 with sub-sternal chest pain [...] arise --- Follows with Dr. Garcia at [facility] Plan: - Continuous monitoring - F/u TACTICAL DEBRIEFER OFFICER recs GBS (group B Streptococcus c arrier), +RV culture @ 22 wks 11/11/2013 04/16/2014 Hypertension in , antepartum 09/19/2013 01/08/2014 DVT prophylaxis 12/25/2012 09/04/2013 Overview: IPCs DISPOSITION AND FOLLOW-UP 12/25/2012 Overview: Full code Retinal detachment 10/26/2012 3 documented as of this encounter (statuses as of 12/15/2023) [facility] note Author Cynthia Hutchison [facility] October 18, 2023 11:21am Note Date/Time October 18, 2023 11:21am [facility] Medical Records Department [address] [place] [address] Counseling Note - Pharmacy 10/18/23 1121 MR#: [id number] Acct: [id number] Name: KATHLEEN VILLA Rep #:[id number] : 1995 28 From: Cynthia Hutchison PCP: FUNMILAYO SMITH Status:ADM IN Y Location: ICU CVICU 2-1 Pharmacy [place] Med Reconciliation Pharmacy Service has performed discharge medication reconciliation for this patient. The patient's discharge medication list was reviewed for discrepancies and discrepancies were resolved. Medications at Discharge Home Medications insulin lispro 100 unit/mL subcutaneous solution (Humalog U-100 Insulin) See Rx Instructions .Route .COMPLEX 04/27/23 pen needle, diabetic 29 gauge x 1/2 (Ultra-Thin II Insulin Pen [place]) #100 ea08/10/23 prochlorperazine maleate 10 mg tablet (Compazine) 10 mg PO TID PRN nausea and vomiting #20 tabs 09/25/23 10/18/23 1121 <Electronically signed by Cynthia Hutchison> Date _ Cynthia Hutchison Cosigner Signature (if applicable): Date CC: ~ Signed [facility] Work Phone: Discharge summary Author Ileana Lobo [facility] April 29, 2023 5:54pm Note Date/Time April 29, 2023 5:45pm [facility] Medical Records Department [address] [place] [address] Instructions for Home/Discharge Instructions 04/29/23 1744 MR#: [id number] Acct: [id number] Name: KATHLEEN VILLA Rep #:[id number] : [...] MD; No Primary Care Physician ~ Signed [facility] Work Phone: Discharge summary Author lAexandro Garces [facility] October 17, 2023 11:38am Note Date/Time October 17, 2023 11:24am [facility] Medical Records Department [address] [place] [id number] Emergency Department Summary 10/17/23 MR#: [id number] Acct: [id number] Name: KATHLEEN VILLA Rep #:[id number] : [...] Prior similar symptoms: Yes Recent Illness/Hospitalization: No [facility] <Jacqueline Alvarez RN - Last Filed: 10/17/23 11:31> [facility] Medical History Anxiety Borderline personality [...] gauge x 1/2 (Ultra-Thin II Insulin Pen [place]) #100 ea08/10/23 [Rx Last Taken Unknown] ibuprofen [...] Alvarez RN - Last Filed: 10/17/23 11:31> [facility] MDM Narrative Medical decision making narrative: Patient placed on cardiac rehabilitation program director. IV line initiated. Labwork obtained to evaluate [...] 88.4 H Lymph % (Auto) 7.8 L [place] % (Auto) 2.4 Eos % (Auto) 0.1 [...] Garces MD - Last Filed: 10/17/23 11:38> [facility] Narrative Medical decision making narrative: Patient placed on cardiac rehabilitation program director. IV line initiated. Labwork obtained to evaluate [...] 88.4 H Lymph % (Auto) 7.8 L [place] % (Auto) 2.4 Eos % (Auto) 0.1 [...] minutes, Including time spent:, Discussing w/Patient &/or Family/Research Worker Encyclopedia, Discussing w/Consultants, Arranging Admission or Transfer, Performing Direct Patient Care at Bedside and - (35 minutes) Discharge Plan Dx/Rx/DC Orders Clinical Impression: DKA (diabetic ketoacidosis), Tachycardia, Nausea & vomiting, Acute dehydration Disposition Disposition: Acute Care Hospital [facility] What to do if you have Problems For any increased pain, shortness of breath, bleeding, nausea or vomiting, chest pain, or any unexpected problems, contact your Primary Care Provider. Call [facility] ([phone]) or report to the closest Emergency Room. Call 911 if necessary. 10/17/23 1138 <Electronically signed by Alexandro Garces MD> Cosigner Signature (if applicable): 10/17/23 1131 <Electronically signed by Jacqueline Alvarez RN> CC: FUNMILAYO SMITH ~ Signed [facility] Work Phone: Discharge summary Author [facility] October 18, 2023 10:54am Note Date/Time October 18, 2023 10:54am [facility] Medical Records Department [address] [place] [id number] Instructions for Home/Discharge Instructions 10/18/23 1054 MR#: [id number] Acct: [id number] Name: KATHLEEN VILLA Rep #:[id number] : [...] Instructions / Restrictions: follow up with your machine stuffer automatic and medical laboratory technical officer SIRI. Discharge Orders/Prescriptions Prescriptions: Continued insulin lispro [...] pen needle, diabetic [Ultra-Thin II Ins Pen [place]] 29 gauge x 1/2 needle See Rx [...] Jefferson MD CC: FUNMILAYO SMITH ~ Signed [facility] Work Phone: Discharge summary Author [facility] October 18, 2023 11:09am Note Date/Time October 18, 2023 10:58am [facility] Medical Records Department [address] [place] [address] Discharge Summary 10/18/23 1054 MR#: [id number] Acct: [id number] Name: KATHLEEN VILLA Rep #:[id number] : [...] was 6.7. * follows up with an machine stuffer automatic in [facility] in [place]. * last A1C from 08/07/2023 was 7 [...] gauge x 1/2 (Ultra-Thin II Insulin Pen [place]) #100 ea08/10/23 prochlorperazine maleate 10 mg tablet [...] per patient, her last A1C with her machine stuffer automatic was 6.7. She had however had recurrent [...] to follow up with her PCP and machine stuffer automatic as well as medical laboratory technical officer o/a of gastroparesis. Patient seen and examined [...] % (Auto) 59.5, Lymph % (Auto) 32.5, [place] % (Auto) 6.0, Eos % (Auto) 1.0, [...] Instructions / Restrictions: follow up with your machine stuffer automatic and medical laboratory technical officer SIRI. Discharge Orders/Prescriptions Prescriptions: Continued insulin lispro [...] pen needle, diabetic [Ultra-Thin II Ins Pen [place]] 29 gauge x 1/2 needle See Rx [...] Self Care Charges/Coding Visit Charges Inpatient E&M: 69746 Disch Hosp >30min 10/18/23 1109 <Electronically signed by Vita Jefferson MD> Cosigner Signature (if applicable): CC: Dr. Vita Jefferson MD; FUNMILAYO SMITH~ Signed [facility] Work Phone: Evaluation note* Diagnosis Type 1 diabetes mellitus with other specified complication (HCC)- [facility] Diagnosis Obstruction of central line, initial encounter (HCC)- Primary documented in this encounter [facility] note* Diagnosis Type 1 diabetes mellitus with other specified complication ([facility])- Primary [facility]* Diagnosis Menstrual irregularity- Primary Irregular menstrual cycle Screening for STD (sexually transmitted disease) Screening examination for venereal disease Chronic nausea Nausea alone documented in this encounter [facility]* Diagnosis 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 ([facility]) documented in this encounter [facility] note* Diagnosis Chronic idiopathic constipation Unspecified constipation [facility] Diagnosis Gonorrhea- Primary Gonococcal infection (acute) of lower genitourinary tract documented in this encounter [facility]* Diagnosis Gonorrhea- Primary Gonococcal infection (acute) of lower genitourinary tract documented in this encounter [facility]* Diagnosis Gonorrhea- Primary Gonococcal infection (acute) of lower genitourinary tract Screen for sexually transmitted diseases Screening examination for venereal disease documented [facility]* Diagnosis Type 1 diabetes mellitus with hyperglycemia (HCC)- Primary Type I (juvenile type) diabetes mellitus without mention of complication, not stated as uncontrolled Insulin pump status Abnormal results of thyroid function studies Nonspecific abnormal results of thyroid function study documented in this encounter [facility] note* Diagnosis Type 1 diabetes mellitus with hyperglycemia, with long-term current use of insulin (HCC)- Primary Insulin pump status documented in this encounter [facility] note* Diagnosis Type 1 diabetes mellitus with other specified complication ([facility])- Primary documented in this encounter [facility] note* Diagnosis Lower abdominal pain- Primary Abdominal pain, other specified site [facility] Diagnosis Viral conjunctivitis- Primary Unspecified diseases of conjunctiva due to viruses [facility] Diagnosis Gastroparesis due to DM (HCC)- Primary Type II or unspecified type diabetes mellitus with neurological manifestations, not stated as uncontrolled Aortic root aneurysm (HCC) Aortic aneurysm of unspecified site without mention of rupture Primary hypertension Unspecified essential hypertension Chronic nausea Nausea alone 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) Marfan syndrome Marfan's syndrome PTSD (post-traumatic stress disorder) Posttraumatic stress disorder Generalized abdominal pain Abdominal pain, generalized documented in this encounter [facility] note* Diagnosis Gastroparesis due to DM ([facility])- Primary Type II or unspecified type diabetes mellitus with neurological manifestations, not stated as uncontrolled Generalized abdominal pain Abdominal pain, generalized documented in this encounter [facility] note* Diagnosis Left flank pain- Primary Abdominal pain, unspecified site documented in this encounter [facility] note* Diagnosis Left flank pain- Primary Abdominal pain, unspecified site Dysuria documented in this encounter [facility] note* Diagnosis Type 1 diabetes mellitus with hyperglycemia, with long-term current use of insulin ([facility])- Primary Insulin pump status Screening for diabetic retinopathy Screening for other eye conditions documented in this encounter [facility] note* Diagnosis Nausea & vomiting- Primary Nausea with vomiting Hyperglycemia Other abnormal glucose Ketonuria Acetonuria Nausea and vomiting, unspecified vomiting type Abdominal pain, unspecified abdominal location Chest pain, unspecified type Bradycardia Other specified cardiac dysrhythmias documented in this encounter [facility] noteNo assessment information availableWOhioHealth [facility] Work Phone: evaluation note* Diagnosis Onset Date Resolution Status Intractable vomiting acute [facility] Work Phone: evaluation note* Diagnosis Psoriasis vulgaris- Primary Other psoriasis [facility]* Diagnosis Type 1 diabetes mellitus with hyperglycemia, with long-term current use of insulin ([facility])- Primary Insulin pump status documented in this encounter [facility] note* Diagnosis Onset Date Resolution Status Diabetic gastroparesis acute DKA (diabetic ketoacidoses) acute Enterocolitis acute Intractable nausea and vomiting acute Nausea & vomiting acute Type 1 diabetes acute [facility] Work Phone: Evaluation note* Diagnosis Onset Date Resolution Status DKA (diabetic ketoacidoses) resolved Intractable nausea and vomiting resolved Nausea & vomiting resolved [facility] Work Phone: Evaluation note* Diagnosis Onset Date Resolution Status DKA (diabetic ketoacidoses) resolved Intractable nausea and vomiting resolved Nausea & vomiting resolved Acute dehydration acute DKA (diabetic ketoacidosis) acute Nausea & vomiting acute Tachycardia acute [facility] Work Phone: Evaluation note* Diagnosis Psoriasis vulgaris- Primary Other psoriasis Multiple benign nevi documented in this encounter [facility] note* Diagnosis Onset Date Resolution Status DKA (diabetic ketoacidoses) resolved Intractable nausea and vomiting resolved Nausea & vomiting resolved Acute dehydration resolved DKA (diabetic ketoacidosis) resolved Nausea & vomiting resolved Tachycardia resolved [facility] Work Phone: Evaluation note* Diagnosis Type 1 diabetes mellitus with hyperglycemia, with long-term current use of insulin (HCC)- Primary Insulin pump status documented in this encounter [facility] note* Diagnosis Type 1 diabetes mellitus with hyperglycemia, with long-term current use of insulin ([facility]) Insulin pump status documented in this encounter [facility] note* Diagnosis Type 1 diabetes mellitus with hyperglycemia, with long-term current use of insulin ([facility])- Primary Insulin pump status documented in this encounter [facility] note* Diagnosis Type 1 diabetes mellitus with hyperglycemia, with long-term current use of insulin ([facility]) documented in this encounter [facility] note* Diagnosis Obstructive sleep apnea- Primary Obstructive sleep apnea (adult) (pediatric) Dyspnea Other dyspnea and respiratory abnormality Type 1 diabetes mellitus with hyperglycemia, with long-term current use of insulin ([facility]) Insulin pump status documented in this encounter [facility] note* Diagnosis Obstructive sleep apnea- Primary Obstructive sleep apnea (adult) (pediatric) Dyspnea Other dyspnea and respiratory abnormality Diabetes mellitus type 1, controlled, without complications (HCC)- Primary Type I (juvenile type) diabetes mellitus without mention of complication, not stated as uncontrolled documented in this encounter [facility] note* Diagnosis Obstructive sleep apnea- Primary [...] for venereal disease documented in this encounter [facility] note* Diagnosis Obstructive sleep apnea- Primary Obstructive sleep apnea (adult) (pediatric) Dyspnea Other dyspnea and respiratory abnormality Type 1 diabetes mellitus with hyperglycemia, with long-term current use of insulin (HCC)- Primary Insulin pump status documented in this encounter [facility] note* Diagnosis Obstructive sleep apnea- Primary Obstructive sleep apnea (adult) (pediatric) Dyspnea Other dyspnea and respiratory abnormality Type 1 diabetes mellitus with hyperglycemia, with long-term current use of insulin (HCC) Insulin pump status [facility]* Diagnosis Psoriasis vulgaris- Primary Other psoriasis Folliculitis Other specified disease of hair and hair follicles Encounter for long-term current use of high risk medication Screening for viral disease Special screening examination for unspecified viral disease documented in this encounter [facility] note* Diagnosis Obstructive sleep apnea- Primary Obstructive sleep apnea (adult) (pediatric) Dyspnea Other dyspnea and respiratory abnormality Chronic idiopathic constipation- Primary Unspecified constipation Gastroparesis documented in this encounter [facility] note* Diagnosis Obstructive sleep apnea- Primary Obstructive sleep apnea (adult) (pediatric) Dyspnea Other dyspnea and respiratory abnormality Chronic idiopathic constipation- Primary Unspecified constipation Abdominal pain, suprapubic Abdominal pain, other specified site Chronic idiopathic constipation Unspecified constipation documented in this encounter [facility] note* Diagnosis Obstructive sleep apnea- Primary Obstructive sleep apnea (adult) (pediatric) Dyspnea Other dyspnea and respiratory abnormality Chronic idiopathic constipation Unspecified constipation documented in this encounter [facility] note* Diagnosis Psoriasis vulgaris- Primary Other [...] of other medications documented in this encounter [facility] course Narrative No data available for this section [facility] Hospital Discharge instructions No data available for this section [facility] Hospital Discharge instructions* Attachments The following attachments cannot be sent through Care Everywhere. * Gastroparesis (Croatian) [facility] Additional Instructions Please follow-up with your diabetes doctor Please keep a close eye on your blood sugar and adjust your pump accordingly. Please try to drink plenty of fluids today.[facility] Work Phone: Hospital Discharge instructions Additional Instructions You have influenza B. You should start to feel better later in the week. You need to maintain hydration, keep a close eye on your sugars. You need to eat and drink, do not get behind and get dehydrated. Use ibuprofen and Tylenol. Use your albuterol inhaler.[facility] Work Phone: Progress note No data available for this section [facility] Reason for visit Narrative* Diagnostic Procedure Only (Routine) - Closed Specialty Diagnoses / Procedures Referred By Contclarisa t Referred To Contact XR IMAGING Diagnoses Chronic idiopathic constipation Procedures XR ABDOMEN 1V SUPINE RADIOLOGIC EXAM ABDOMEN 1 VIEW Leticia Hylton DO [address] [place] [address] Phone: tel: [place]: [place] [id number] Referral ID Status Reason Start Date Expiration Date V isits Requested Visits Authorized [id number] Closed Auto-Generate d Referral 11/11/2024 12/11/2025 1 1 [facility] Summary Purpose Family History No Family History Records FoundNo Family History Records FoundNo Family History Records FoundNo Family History Records FoundNo Family History Records FoundNo Family History Records FoundNo Family History Records FoundNo Family History Records FoundNo Family History Records FoundNo Family History Records Found Advance Directives No Advanced Directives Records FoundDocuments on File Type Date Recorded Patient Mucker [place]ffer[place] Expl anation Advance Directive(s) Advance Directive(s) 01/02/2020 3:16 PM Advance Directive(s) 01/20/2016 9:39 AM Advance Directive(s) 11/13/2015 8:50 AM Advance Directive(s) 02/27/2014 5:42 PM Advance Directive(s) 01/09/2014 8:55 PM Advance Directive(s) 12/25/2012 9:16 PM Documents on File Type Date Recorded Patient Mucker Cofferdam Expl anation Advance Directive(s) 02/27/2014 5:42 PM Advance Directive(s) 01/09/2014 8:55 PM Advance Directive(s) 12/25/2012 9:16 PM Documents on File Type Date Recorded Patient Mucker [place]ffer[place] Expl anation Advance Directive(s) 02/27/2014 5:42 PM [...] Date/ Time Living Will No April 26 3 9:30pm Power of Machine Builder No April 26, 2 023 9:30pm Advance Directive Response Recorded Date/ Time Living Will No April 27 3 9:26am Power of Machine Builder No April 27, 2 023 9:26am Advance Directive Response Recorded Date/ Time Living Will No April 27 3 5:02pm Power of Machine Builder No April 27, 2 023 5:02pm Advance Directive Response Recorded Date/ Time Living Will No May 03, 2 023 4:27am Power of Machine Builder No May 03, 2023 4:27am Latest Code [...] Will No June 25 9:47am Power of Machine Builder No June 25, 2023 9:47am Advance Directive Response Recorded Date/ Time Living Will No June 25 11:14pm Power of Machine Builder No June 25, 2023 11:14pm Advance Directive Response Recorded Date/ Time Living Will No August 06, 2 023 8:56am Power of Machine Builder No August 06, 2023 8:56am Advance Directive Response Recorded Date/ Time Living Will No August 06, 2 023 9:39pm Power of Machine Builder No August 06, 2023 9:39pm Advance Directive Response Recorded Date/ Time Living Will No August 22, 2 023 2:48am Power of Machine Builder No August 22, 2023 2:48am Advance Directive Response Recorded Date/ Time Living Will No September 24 5:58pm Power of Machine Builder No September 24, 2023 5:58pm Advance Directive Response Recorded Date/ Time Living Will No October 17, 2 024 10:02am Power of Machine Builder No October 17, 2023 10:02am Advance Directive Response Recorded Date/ Time Living Will No October 17, 2 024 12:47pm Power of Machine Builder No October 17, 2023 12:47pm Advance Directive Response Recorded Date/ Time Living Will No October 25, 2 024 4:43pm Power of Machine Builder No October 25, 2023 4:43pm Date Activated Date Inactivated Comments 02/01/2023 2:02 AM 02/04/2023 6:35 PM Question Answer Comments Full Code Order Discussed With: Patient Date Activated Date Inactivated Comments 11/23/2022 11:30 PM 11/26/2022 7:43 PM Question Answer Comments Full Code Order Discussed With: Patient Advance Directive Response Recorded Date/ Time Living Will No October 25, 024 5:43pm Power of Machine Builder No October 25, 2023 5:43pm Date Activated Date Inactivated Comments 02/01/2023 2:02 AM 02/04/2023 6:35 PM Question Answer Comments Full Code Order Discussed With: Patient Date Activated Date Inactivated Comments 11/23/2022 11:30 PM 11/26/2022 7:43 PM Question Answer Comments Full Code Order Discussed With: Patient Advance Directive Response Recorded Date/ Time Living Will No August 07, 2 023 1:35am Power of Machine Builder No August 07, 2023 1:35am Health Concerns Infection Onset Date Last Indicated Resolved Time COVID-19 Rule-Out 10/21/2021 12/27/2021 02/05/2022 8:54 PM EDT COVID-19 Rule-Out 01/29/2022 01/29/202202/08/2022 12:54 PM EDT Infection Onset Date Last [...] Referral Specialty Diagnoses / Procedures Referred By Contac t Referred To Contact Diagnoses Type 1 diabetes mellitus with hyperglycemia, with long-term current use of insulin (HCC) Procedures CONSULT TO DIABETES EDUCATION DSME/MNT MEDICAL NUTRITION ASSMT&IVNTJ INDIV EACH 15 [place] MEDICAL NUTRITION ASSMT&IVNTJ INDIV EACH 15 [place] MEDICAL NUTRITION ASSMT&IVNTJ INDIV EACH 15 [place] MEDICAL NUTRITION ASSMT&IVNTJ INDIV EACH 15 [place] Jessica Guerrero APRN.PIE CRIMPING MACHINE OPERATOR [address] [id number] Referral ID Status Reason Start Date Expiration Date Visits Requested Visits Authorized [id number] Authorized PCP Requested Referral 12/13/2023 12/12/2024 1 1 Specialty Diagnoses / Procedures Referred By Contac t Referred To Contact Diagnoses Psoriasis vulgaris Leesa Huddleston PA-C [address] [facility] [address] [place] [address] Referral ID Status Reason Start Date Expiration Date V isits Requested Visits Authorized [id number] Authorized 04/14/2021 05/13/2024 1 1 Specialty Diagnoses / Procedures Referred By Contac t Referred To Contact Ophthalmology Diagnoses Screening for diabetic retinopathy Procedures CONSULT TO OPHTHALMOLOGY OFFICE/OUTPATIENT [facility] 60-74 MINUTES Autumn Valadez, AOC DIRECTOR INTELLIGENCE OFFICER.PIE CRIMPING MACHINE OPERATOR [address] [place] [address] Referral ID Status Reason Start Date Expiration Date Visits Requested Visits Authorized [id number] Authorized PCP Requested Referral 01/25/2023 01/25/2024 1 1 Specialty Diagnoses / Procedures Referred By Contac t Referred To Contact Gastroenterology Diagnoses Gastroparesis due to DM (HCC) Generalized abdominal pain Procedures CONSULT TO GASTROENTEROLOGY OFFICE/OUTPATIENT [facility] 60-74 MINUTES Vivi Smith MD [address] [place] [address] [place] [address] [facility] [address] [place] [address] Referral ID Status Reason Start Date Expiration Date Visits Requested Visits Authorized [id number] Authorized PCP Requested Referral 12/09/2022 12/09/2023 1 1 Specialty Diagnoses / Procedures Referred By Contac t Referred To Contact Pain Management / PAIN MANAGEMENT Diagnoses Gastroparesis due to DM (HCC) Generalized abdominal pain Procedures CONSULT TO PAIN MGT OFFICE/OUTPATIENT [facility] 60-74 MINUTES Vivi Smith MD [address] [place] [address] Elisabet Guzmán DO [address] [facility] [place] [address] Referral ID Status Reason Start Date Expiration Date Visits Requested Visits Authorized [id number] Authorized PCP Requested Referral 12/09/2022 12/09/2023 1 1 Specialty Diagnoses / Procedures Referred By Contac t Referred To Contact Gynecology Diagnoses Menstrual irregularity Procedures CONSULT TO GYNECOLOGY OFFICE/OUTPATIENT [facility] 60-74 MINUTES Dashawn Cain, AOC DIRECTOR INTELLIGENCE OFFICER.PIE CRIMPING MACHINE OPERATOR [address] [place] [address] Referral ID Status Reason Start Date Expiration Date Visits Requested Visits Authorized [id number] Authorized PCP Requested Referral Auto-Generate d Referral [...] content) DATE CREATED AUTHOR 02/21/2018 [facility] DATE CREATED AUTHOR AUTHOR'S ORGANIZ ATION 12/28/2021 [facility] CREATED AUTHOR AUTHOR'S ORGANIZ ATION 02/12/2022 [facility] [place] DATE CREATED AUTHOR AUTHOR'S ORGANIZ ATION 03/04/2023 [facility] DATE CREATED AUTHOR AUTHOR'S ORGANIZ ATION 04/20/2023 [facility] DATE CREATED AUTHOR AUTHOR'S ORGANIZ ATION 12/17/2023 [facility] [place] DATE CREATED AUTHOR AUTHOR'S ORGANIZ ATION 11/13/2024 [facility] DATE CREATED AUTHOR AUTHOR'S ORGANIZ ATION 11/15/2024 [facility] DATE CREATED AUTHOR AUTHOR'S ORGANIZ ATION 01/28/2025 [facility] DATE CREATED AUTHOR AUTHOR'S ORGANIZ ATION 04/15/2025 [facility] Source Comments (unrecognize d section and content) In the event this informatio n is protected by the Federal Confidentiality of Alcohol and Drug Abuse Patient Records regulations: The Federal rules restrict any use of the information to criminally investigate or prosecute any alcohol or drug abuse patient.[facility] the event this information is protected by the Federal Confidentiality of Alcohol and Drug Abuse Patient Records regulations: The Federal rules restrict any use of the information to criminally investigate or prosecute any alcohol or drug abuse patient.[facility] Hospital[facility] the event this information is protected by the Federal Confidentiality of Alcohol and Drug Abuse Patient Records regulations: The Federal rules restrict any use of the information to criminally investigate or prosecute any alcohol or drug abuse patient.[facility] the event this information is protected by the Federal Confidentiality of Alcohol and Drug Abuse Patient Records regulations: The Federal rules restrict any use of the information to criminally investigate or prosecute any alcohol or drug abuse patient.[facility] the event this information is protected by the Federal Confidentiality of Alcohol and Drug Abuse Patient Records regulations: The Federal rules restrict any use of the information to criminally investigate or prosecute any alcohol or drug abuse patient.[facility] the event this information is protected by the Federal Confidentiality of Alcohol and Drug Abuse Patient Records regulations: The Federal rules restrict any use of the information to criminally investigate or prosecute any alcohol or drug abuse patient.[facility] Hospital[facility] the event this information is protected by the Federal Confidentiality of Alcohol and Drug Abuse Patient Records regulations: The Federal rules restrict any use of the information to criminally investigate or prosecute any alcohol or drug abuse patient.[facility] Hospital[facility] the event this information is protected by the Federal Confidentiality of Alcohol and Drug Abuse Patient Records regulations: The Federal rules restrict any use of the information to criminally investigate or prosecute any alcohol or drug abuse patient.[facility] the event this information is protected by the Federal Confidentiality of Alcohol and Drug Abuse Patient Records regulations: The Federal rules restrict any use of the information to criminally investigate or prosecute any alcohol or drug abuse patient.[facility] HospitalIn the event this information is protected by the Federal Confidentiality of Alcohol and Drug Abuse Patient Records regulations: The Federal rules restrict any use of the information to criminally investigate or prosecute any alcohol or drug abuse patient.[facility] HospitalIn the event this information is protected by the Federal Confidentiality of Alcohol and Drug Abuse Patient Records regulations: The Federal rules restrict any use of the information to criminally investigate or prosecute any alcohol or drug abuse patient.[facility] HospitalIn the event this information is protected by the Federal Confidentiality of Alcohol and Drug Abuse Patient Records regulations: The Federal rules restrict any use of the information to criminally investigate or prosecute any alcohol or drug abuse patient.[facility] HospitalIn the event this information is protected by the Federal Confidentiality of Alcohol and Drug Abuse Patient Records regulations: The Federal rules restrict any use of the information to criminally investigate or prosecute any alcohol or drug abuse patient.[facility] HospitalIn the event this information is protected by the Federal Confidentiality of Alcohol and Drug Abuse Patient Records regulations: The Federal rules restrict any use of the information to criminally investigate or prosecute any alcohol or drug abuse patient.[facility] HospitalIn the event this information is protected by the Federal Confidentiality of Alcohol and Drug Abuse Patient Records regulations: The Federal rules restrict any use of the information to criminally investigate or prosecute any alcohol or drug abuse patient.[facility] HospitalIn the event this information is protected by the Federal Confidentiality of Alcohol and Drug Abuse Patient Records regulations: The Federal rules restrict any use of the information to criminally investigate or prosecute any alcohol or drug abuse patient.[facility] HospitalIn the event this information is protected by the Federal Confidentiality of Alcohol and Drug Abuse Patient Records regulations: The Federal rules restrict any use of the information to criminally investigate or prosecute any alcohol or drug abuse patient.[facility] HospitalIn the event this information is protected by the Federal Confidentiality of Alcohol and Drug Abuse Patient Records regulations: The Federal rules restrict any use of the information to criminally investigate or prosecute any alcohol or drug abuse patient.[facility] HospitalIn the event this information is protected by the Federal Confidentiality of Alcohol and Drug Abuse Patient Records regulations: The Federal rules restrict any use of the information to criminally investigate or prosecute any alcohol or drug abuse patient.[facility] HospitalIn the event this information is protected by the Federal Confidentiality of Alcohol and Drug Abuse Patient Records regulations: The Federal rules restrict any use of the information to criminally investigate or prosecute any alcohol or drug abuse patient.[facility] HospitalIn the event this information is protected by the Federal Confidentiality of Alcohol and Drug Abuse Patient Records regulations: The Federal rules restrict any use of the information to criminally investigate or prosecute any alcohol or drug abuse patient.[facility] HospitalIn the event this information is protected by the Federal Confidentiality of Alcohol and Drug Abuse Patient Records regulations: The Federal rules restrict any use of the information to criminally investigate or prosecute any alcohol or drug abuse patient.[facility] HospitalIn the event this information is protected by the Federal Confidentiality of Alcohol and Drug Abuse Patient Records regulations: The Federal rules restrict any use of the information to criminally investigate or prosecute any alcohol or drug abuse patient.[facility] HospitalIn the event this information is protected by the Federal Confidentiality of Alcohol and Drug Abuse Patient Records regulations: The Federal rules restrict any use of the information to criminally investigate or prosecute any alcohol or drug abuse patient.[facility] HospitalIn the event this information is protected by the Federal Confidentiality of Alcohol and Drug Abuse Patient Records regulations: The Federal rules restrict any use of the information to criminally investigate or prosecute any alcohol or drug abuse patient.[facility] HospitalIn the event this information is protected by the Federal Confidentiality of Alcohol and Drug Abuse Patient Records regulations: The Federal rules restrict any use of the information to criminally investigate or prosecute any alcohol or drug abuse patient.[facility] HospitalIn the event this information is protected by the Federal Confidentiality of Alcohol and Drug Abuse Patient Records regulations: The Federal rules restrict any use of the information to criminally investigate or prosecute any alcohol or drug abuse patient.[facility] HospitalIn the event this information is protected by the Federal Confidentiality of Alcohol and Drug Abuse Patient Records regulations: The Federal rules restrict any use of the information to criminally investigate or prosecute any alcohol or drug abuse patient.[facility] HospitalIn the event this information is protected by the Federal Confidentiality of Alcohol and Drug Abuse Patient Records regulations: The Federal rules restrict any use of the information to criminally investigate or prosecute any alcohol or drug abuse patient.[facility] HospitalIn the event this information is protected by the Federal Confidentiality of Alcohol and Drug Abuse Patient Records regulations: The Federal rules restrict any use of the information to criminally investigate or prosecute any alcohol or drug abuse patient.[facility] HospitalIn the event this information is protected by the Federal Confidentiality of Alcohol and Drug Abuse Patient Records regulations: The Federal rules restrict any use of the information to criminally investigate or prosecute any alcohol or drug abuse patient.[facility] HospitalIn the event this information is protected by the Federal Confidentiality of Alcohol and Drug Abuse Patient Records regulations: The Federal rules restrict any use of the information to criminally investigate or prosecute any alcohol or drug abuse patient.[facility] HospitalIn the event this information is protected by the Federal Confidentiality of Alcohol and Drug Abuse Patient Records regulations: The Federal rules restrict any use of the information to criminally investigate or prosecute any alcohol or drug abuse patient.[facility] HospitalIn the event this information is protected by the Federal Confidentiality of Alcohol and Drug Abuse Patient Records regulations: The Federal rules restrict any use of the information to criminally investigate or prosecute any alcohol or drug abuse patient.[facility] HospitalIn the event this information is protected by the Federal Confidentiality of Alcohol and Drug Abuse Patient Records regulations: The Federal rules restrict any use of the information to criminally investigate or prosecute any alcohol or drug abuse patient.[facility] HospitalIn the event this information is protected by the Federal Confidentiality of Alcohol and Drug Abuse Patient Records regulations: The Federal rules restrict any use of the information to criminally investigate or prosecute any alcohol or drug abuse patient.[facility] HospitalIn the event this information is protected by the Federal Confidentiality of Alcohol and Drug Abuse Patient Records regulations: The Federal rules restrict any use of the information to criminally investigate or prosecute any alcohol or drug abuse patient.[facility] HospitalIn the event this information is protected by the Federal Confidentiality of Alcohol and Drug Abuse Patient Records regulations: The Federal rules restrict any use of the information to criminally investigate or prosecute any alcohol or drug abuse patient.[facility] HospitalIn the event this information is protected by the Federal Confidentiality of Alcohol and Drug Abuse Patient Records regulations: The Federal rules restrict any use of the information to criminally investigate or prosecute any alcohol or drug abuse patient.[facility] the event this information is protected by the Federal Confidentiality of Alcohol and Drug Abuse Patient Records regulations: The Federal rules restrict any use of the information to criminally investigate or prosecute any alcohol or drug abuse patient.[facility] HospitalIn the event this information is protected by the Federal Confidentiality of Alcohol and Drug Abuse Patient Records regulations: The Federal rules restrict any use of the information to criminally investigate or prosecute any alcohol or drug abuse patient.[facility] HospitalIn the event this information is protected by the Federal Confidentiality of Alcohol and Drug Abuse Patient Records regulations: The Federal rules restrict any use of the information to criminally investigate or prosecute any alcohol or drug abuse patient.[facility] HospitalIn the event this information is protected by the Federal Confidentiality of Alcohol and Drug Abuse Patient Records regulations: The Federal rules restrict any use of the information to criminally investigate or prosecute any alcohol or drug abuse patient.[facility] HospitalIn the event this information is protected by the Federal Confidentiality of Alcohol and Drug Abuse Patient Records regulations: The Federal rules restrict any use of the information to criminally investigate or prosecute any alcohol or drug abuse patient.[facility] HospitalIn the event this information is protected by the Federal Confidentiality of Alcohol and Drug Abuse Patient Records regulations: The Federal rules restrict any use of the information to criminally investigate or prosecute any alcohol or drug abuse patient.[facility] HospitalIn the event this information is protected by the Federal Confidentiality of Alcohol and Drug Abuse Patient Records regulations: The Federal rules restrict any use of the information to criminally investigate or prosecute any alcohol or drug abuse patient.[facility] HospitalIn the event this information is protected by the Federal Confidentiality of Alcohol and Drug Abuse Patient Records regulations: The Federal rules restrict any use of the information to criminally investigate or prosecute any alcohol or drug abuse patient.[facility] HospitalIn the event this information is protected by the Federal Confidentiality of Alcohol and Drug Abuse Patient Records regulations: The Federal rules restrict any use of the information to criminally investigate or prosecute any alcohol or drug abuse patient.[facility] HospitalIn the event this information is protected by the Federal Confidentiality of Alcohol and Drug Abuse Patient Records regulations: The Federal rules restrict any use of the information to criminally investigate or prosecute any alcohol or drug abuse patient.[facility] HospitalIn the event this information is protected by the Federal Confidentiality of Alcohol and Drug Abuse Patient Records regulations: The Federal rules restrict any use of the information to criminally investigate or prosecute any alcohol or drug abuse patient.[facility] HospitalIn the event this information is protected by the Federal Confidentiality of Alcohol and Drug Abuse Patient Records regulations: The Federal rules restrict any use of the information to criminally investigate or prosecute any alcohol or drug abuse patient.[facility] HospitalIn the event this information is protected by the Federal Confidentiality of Alcohol and Drug Abuse Patient Records regulations: The Federal rules restrict any use of the information to criminally investigate or prosecute any alcohol or drug abuse patient.[facility] HospitalIn the event this information is protected by the Federal Confidentiality of Alcohol and Drug Abuse Patient Records regulations: The Federal rules restrict any use of the information to criminally investigate or prosecute any alcohol or drug abuse patient.[facility] HospitalIn the event this information is protected by the Federal Confidentiality of Alcohol and Drug Abuse Patient Records regulations: The Federal rules restrict any use of the information to criminally investigate or prosecute any alcohol or drug abuse patient.[facility] HospitalIn the event this information is protected by the Federal Confidentiality of Alcohol and Drug Abuse Patient Records regulations: The Federal rules restrict any use of the information to criminally investigate or prosecute any alcohol or drug abuse patient.[facility] HospitalIn the event this information is protected by the Federal Confidentiality of Alcohol and Drug Abuse Patient Records regulations: The Federal rules restrict any use of the information to criminally investigate or prosecute any alcohol or drug abuse patient.[facility] HospitalIn the event this information is protected by the Federal Confidentiality of Alcohol and Drug Abuse Patient Records regulations: The Federal rules restrict any use of the information to criminally investigate or prosecute any alcohol or drug abuse patient.[facility] HospitalIn the event this information is protected by the Federal Confidentiality of Alcohol and Drug Abuse Patient Records regulations: The Federal rules restrict any use of the information to criminally investigate or prosecute any alcohol or drug abuse patient.[facility] HospitalIn the event this information is protected by the Federal Confidentiality of Alcohol and Drug Abuse Patient Records regulations: The Federal rules restrict any use of the information to criminally investigate or prosecute any alcohol or drug abuse patient.[facility] HospitalIn the event this information is protected by the Federal Confidentiality of Alcohol and Drug Abuse Patient Records regulations: The Federal rules restrict any use of the information to criminally investigate or prosecute any alcohol or drug abuse patient.[facility] HospitalIn the event this information is protected by the Federal Confidentiality of Alcohol and Drug Abuse Patient Records regulations: The Federal rules restrict any use of the information to criminally investigate or prosecute any alcohol or drug abuse patient.[facility] HospitalIn the event this information is protected by the Federal Confidentiality of Alcohol and Drug Abuse Patient Records regulations: The Federal rules restrict any use of the information to criminally investigate or prosecute any alcohol or drug abuse patient.[facility] HospitalIn the event this information is protected by the Federal Confidentiality of Alcohol and Drug Abuse Patient Records regulations: The Federal rules restrict any use of the information to criminally investigate or prosecute any alcohol or drug abuse patient.[facility] HospitalIn the event this information is protected by the Federal Confidentiality of Alcohol and Drug Abuse Patient Records regulations: The Federal rules restrict any use of the information to criminally investigate or prosecute any alcohol or drug abuse patient.[facility] HospitalIn the event this information is protected by the Federal Confidentiality of Alcohol and Drug Abuse Patient Records regulations: The Federal rules restrict any use of the information to criminally investigate or prosecute any alcohol or drug abuse patient.[facility] HospitalIn the event this information is protected by the Federal Confidentiality of Alcohol and Drug Abuse Patient Records regulations: The Federal rules restrict any use of the information to criminally investigate or prosecute any alcohol or drug abuse patient.[facility] HospitalIn the event this information is protected by the Federal Confidentiality of Alcohol and Drug Abuse Patient Records regulations: The Federal rules restrict any use of the information to criminally investigate or prosecute any alcohol or drug abuse patient.[facility] HospitalIn the event this information is protected by the Federal Confidentiality of Alcohol and Drug Abuse Patient Records regulations: The Federal rules restrict any use of the information to criminally investigate or prosecute any alcohol or drug abuse patient.[facility] HospitalIn the event this information is protected by the Federal Confidentiality of Alcohol and Drug Abuse Patient Records regulations: The Federal rules restrict any use of the information to criminally investigate or prosecute any alcohol or drug abuse patient.[facility] HospitalIn the event this information is protected by the Federal Confidentiality of Alcohol and Drug Abuse Patient Records regulations: The Federal rules restrict any use of the information to criminally investigate or prosecute any alcohol or drug abuse patient.[facility] HospitalIn the event this information is protected by the Federal Confidentiality of Alcohol and Drug Abuse Patient Records regulations: The Federal rules restrict any use of the information to criminally investigate or prosecute any alcohol or drug abuse patient.[facility] HospitalIn the event this information is protected by the Federal Confidentiality of Alcohol and Drug Abuse Patient Records regulations: The Federal rules restrict any use of the information to criminally investigate or prosecute any alcohol or drug abuse patient.[facility] HospitalIn the event this information is protected by the Federal Confidentiality of Alcohol and Drug Abuse Patient Records regulations: The Federal rules restrict any use of the information to criminally investigate or prosecute any alcohol or drug abuse patient.[facility] HospitalIn the event this information is protected by the Federal Confidentiality of Alcohol and Drug Abuse Patient Records regulations: The Federal rules restrict any use of the information to criminally investigate or prosecute any alcohol or drug abuse patient.[facility] HospitalIn the event this information is protected by the Federal Confidentiality of Alcohol and Drug Abuse Patient Records regulations: The Federal rules restrict any use of the information to criminally investigate or prosecute any alcohol or drug abuse patient.[facility] HospitalIn the event this information is protected by the Federal Confidentiality of Alcohol and Drug Abuse Patient Records regulations: The Federal rules restrict any use of the information to criminally investigate or prosecute any alcohol or drug abuse patient.[facility] HospitalIn the event this information is protected by the Federal Confidentiality of Alcohol and Drug Abuse Patient Records regulations: The Federal rules restrict any use of the information to criminally investigate or prosecute any alcohol or drug abuse patient.[facility] HospitalIn the event this information is protected by the Federal Confidentiality of Alcohol and Drug Abuse Patient Records regulations: The Federal rules restrict any use of the information to criminally investigate or prosecute any alcohol or drug abuse patient.[facility] HospitalIn the event this information is protected by the Federal Confidentiality of Alcohol and Drug Abuse Patient Records regulations: The Federal rules restrict any use of the information to criminally investigate or prosecute any alcohol or drug abuse patient.[facility] HospitalIn the event this information is protected by the Federal Confidentiality of Alcohol and Drug Abuse Patient Records regulations: The Federal rules restrict any use of the information to criminally investigate or prosecute any alcohol or drug abuse patient.[facility] Care Teams (unrecognized sec tion and [...] Status: Active Member Role Status Dates [facility]MIL[facility]O, [facility] Primary Care Provider Active Dr. Alexandro Garces MD Emergency Provider Active Dr. Vita Jefferson MD Admit Provider, Attending Provider, Other Provider Active Team Status: Inactive Member Role Status Dates No Primary Care Physician Primary Care Provider Active Dr. Lul Singh DO Emergency Provider Active Dr. Vamsi Duvall DO Admit Provider, Other Provid er Active Dr. Dangelo Encarnacion , DO Attending Provider Active Team Status: Inactive Member Role Status Dates No Primary Care Physician Primary Care Provider Active Dr. Marc Carl DO Attending Provider, Emergency P rovider Active Team Status: Inactive Member Role Status Dates Dr. Greg Philip DO Attending Provider, Emergency P rovider Active FUNMILAYO, [facility] Primary Care Provider Active Team Status: Inactive Member Role Status Dates FUNMILAYO, [facility] Primary Care Provider Active Dr. Rm Chirinos MD Attending Provider, Emergency Provi benjie Active Team Status: Inactive Member Role Status Dates FUNMILAYO, [facility] Primary Care Provider Active Dr. Edwin Scales MD Attending Provider, Emergency Provider Active Team Status: Inactive Member Role Status Dates FUNMILAYO, [facility] Primary Care Provider Active Dr. Olvin Ibarra DO Attending Provider, Emergency Provide r Active Team Status: Inactive Member Role Status Dates No Primary Care Physician Primary Care Provider Active Juan Marquez MD Attending Provider, Emergency Provid er Active Team Status: Inactive Member Role Status Dates Out of [facility] Doctor Primary Care Provider Active Dr. Lin Johansen MD Emergency Provider Active Team Status: Inactive Member Role Status Dates FUNMILAYO, [facility] Primary Care Provider Active Dr. Alexandro Garces MD Emergency Provider Active Dr. Vita Jefferson MD Admit Provider, Attending Prov ider Active Team Status: Active Member Role [facility] Active Team Status: Inactive Member Role Status Dates No Primary Care Physician Primary Care Provider Active Dr. Siddharth Herrera MD Attending Provider, Emergency Pr ovider Active Team Status: Inactive Member Role Status Dates FUNMILAYO, SMITH Primary Care Provider Active Dr. Rm Chirinos MD Emergency Provider Active Team Status: Inactive Member Role Status Dates FUNMILAYO, [facility] Primary Care Provider Active Dr. Edwin Scales MD Emergency Provider Active Team Status: Inactive Member Role Status Dates No Primary Care Physician Primary Care Provider Active Dr. Greg Philip DO Attending Provider, Emergency P rovider Active Team Status: Active Member Role Status [...] Dr. Ileana Lobo MD Attending Provider Active Pricing Director Relationship Specialty Start Date End Date [facility] [address] [place] [address] PCP - General Family Practice 12/31/19 Latosha Johnson LSW Music Store Manager 12/10/14 Vamsi Cohen MD Primary Staff Physician Cardiology 11/13/18 Pricing Director Relationship Specialty Start Date End Date [facility]. [address] [place] [address] PCP - General Family Practice 12/31/19 Latosha Johnson LSW Music Store Manager 12/10/14 Vamsi Cohen MD Primary Staff Physician Cardiology 11/13/18 Pricing Director Relationship Specialty Start Date End Date [facility]. [address] [place], [place] PCP - General Family Practice 12/31/19 Latosha Johnson STRIKER OFF Music Store Manager 12/10/14 Vamsi Cohen MD Primary Staff Physician Cardiology 11/13/18 Pricing Director Relationship Specialty Start Date End Date [facility]. [address] [place], [place] PCP - General Family Practice 12/31/19 Latosha Johnson [facility] Music Store Manager 12/10/14 Vamsi Cohen MD Primary Staff Physician Cardiology 11/13/18 Pricing Director Relationship Specialty Start Date End Date [facility]. [address] [place], [place] PCP - General Family Practice 12/31/19 Latosha Johnson STRIKER OFF Music Store Manager 12/10/14 Vamsi Cohen MD Primary Staff Physician Cardiology 11/13/18 Pricing Director Relationship Specialty Start Date End Date Dashawn Cain, AOC DIRECTOR INTELLIGENCE OFFICER.PIE CRIMPING MACHINE OPERATOR [address] [place], [place] PCP - General Family Practice 03/08/22 Latosha Johnson STRIKER OFF Music Store Manager 12/10/14 Vamsi Cohen MD Primary Staff Physician Cardiology 11/13/18 Pricing Director Relationship Specialty Start Date End Date , AOC DIRECTOR INTELLIGENCE OFFICER.PIE CRIMPING MACHINE OPERATOR [address] [place] PCP - General Family Practice 03/08/22 JohnsonLatosha khan, STRIKER OFF Music Store Manager 12/10/14 Vamsi Cohen MD Primary Staff Physician Cardiology 11/13/18 Pricing Director Relationship Specialty Start Date End Date , AOC DIRECTOR INTELLIGENCE OFFICER.PIE CRIMPING MACHINE OPERATOR [address] [place] PCP - General Family Practice 03/08/22 JohnsonLatosha khan, STRIKER OFF Music Store Manager 12/10/14 Vamsi Cohen MD Primary Staff Physician Cardiology 11/13/18 Pricing Director Relationship Specialty Start Date End Date , AOC DIRECTOR INTELLIGENCE OFFICER.PIE CRIMPING MACHINE OPERATOR [address] [place] PCP - General Family Practice 03/08/22 JohnsonLatosha khan, STRIKER OFF Music Store Manager 12/10/14 Vamsi Cohen MD Primary Staff Physician Cardiology 11/13/18 Pricing Director Relationship Specialty Start Date End Date , AOC DIRECTOR INTELLIGENCE OFFICER.PIE CRIMPING MACHINE OPERATOR [address] [place] [address] PCP - General Family Practice 03/08/22 Latosha Johnson, [facility] Music Store Manager 12/10/14 Vamsi Cohne MD Primary Staff Physician Cardiology 11/13/18 Pricing Director Relationship Specialty Start Date End Date Paul, AOC DIRECTOR INTELLIGENCE OFFICER.PIE CRIMPING MACHINE OPERATOR [address] [facility] [place] [facility] - General Family Practice 03/08/22 Latosha Johnson LSW Music Store Manager 12/10/14 Vamsi Cohen MD Primary Staff Physician Cardiology 11/13/18 Pricing Director Relationship Specialty Start Date End Date Paul, AOC DIRECTOR INTELLIGENCE OFFICER.PIE CRIMPING MACHINE OPERATOR [address] [place], [place] PCP - General Family Practice 03/08/22 Latosha Johnson STRIKER OFF Music Store Manager 12/10/14 Vamsi Cohen MD Primary Staff Physician Cardiology 11/13/18 Pricing Director Relationship Specialty Start Date End Date Paul, AOC DIRECTOR INTELLIGENCE OFFICER.PIE CRIMPING MACHINE OPERATOR [address] [place], [place] PCP - General Family Practice 03/08/22 Latosha Johnson STRIKER OFF Music Store Manager 12/10/14 Vamsi Cohen MD Primary Staff Physician Cardiology 11/13/18 Pricing Director Relationship Specialty Start Date End Date Dashawn, AOC DIRECTOR INTELLIGENCE OFFICER.PIE CRIMPING MACHINE OPERATOR [address] [place], [place] PCP - General Family Practice 03/08/22 Latosha Johnson STRIKER OFF Music Store Manager 12/10/14 Vamsi Cohen MD Primary Staff Physician Cardiology 11/13/18 Pricing Director Relationship Specialty Start Date End Date DelfinDashawn, AOC DIRECTOR INTELLIGENCE OFFICER.PIE CRIMPING MACHINE OPERATOR [address] [place], [place] PCP - General Family Practice 03/08/22 Latosha Johnson, STRIKER OFF Music Store Manager 12/10/14 Vamsi Cohen MD Primary Staff Physician Cardiology 11/13/18 Pricing Director Relationship Specialty Start Date End Date [facility] [address] [place], [place] PCP - General Family Medicine 12/31/19 03/07/22 Dashawn Cain, AOC DIRECTOR INTELLIGENCE OFFICER.PIE CRIMPING MACHINE OPERATOR [address] [place], [place] PCP - General Family Medicine 03/08/22 Latosha Johnson, STRIKER OFF Music Store Manager 12/10/14 Vamsi Cohen MD Primary Staff Physician Cardiology 11/13/18 Pricing Director Relationship Specialty Start Date End Date Dashawn Cain, AOC DIRECTOR INTELLIGENCE OFFICER.PIE CRIMPING MACHINE OPERATOR [address] [place], [place] PCP - General Family Medicine 03/08/22 Latosha Johnson, [facility] Music Store Manager 12/10/14 Vamsi Cohen MD Primary Staff Physician Cardiology 11/13/18 Pricing Director Relationship Specialty Start Date End Date Dashawn Cain, AOC DIRECTOR INTELLIGENCE OFFICER.PIE CRIMPING MACHINE OPERATOR [address] [place], [place] PCP - General Family Medicine 03/08/22 Latosha Johnson, [facility] Music Store Manager 12/10/14 Vamsi Cohen MD Primary Staff Physician Cardiology 11/13/18 Pricing Director Relationship Specialty Start Date End Date Dashawn Cain, AOC DIRECTOR INTELLIGENCE OFFICER.PIE CRIMPING MACHINE OPERATOR [address] [place] [address] PCP - General Family Medicine 03/08/22 Latosha Johnson [facility] Music Store Manager 12/10/14 Vamsi Cohen MD Primary Staff Physician Cardiology 11/13/18 Pricing Director Relationship Specialty Start Date End Date Paul, AOC DIRECTOR INTELLIGENCE OFFICER.PIE CRIMPING MACHINE OPERATOR [address] [place] [address] PCP - General Family Medicine 03/08/22 Latosha Johnson, [facility] Music Store Manager 12/10/14 Vamsi Cohen MD Primary Staff Physician Cardiology 11/13/18 Pricing Director Relationship Specialty Start Date End Date eliseoPaul, AOC DIRECTOR INTELLIGENCE OFFICER.PIE CRIMPING MACHINE OPERATOR [address] [place] [address] PCP - General Family Medicine 03/08/22 Latosha Johnson [facility] Music Store Manager 12/10/14 Vamsi Cohen MD Primary Staff Physician Cardiology 11/13/18 Pricing Director Relationship Specialty Start Date End Date Dashawn, AOC DIRECTOR INTELLIGENCE OFFICER.PIE CRIMPING MACHINE OPERATOR [address] [place] [address] PCP - General Family Medicine 03/08/22 Latosha Johnson, [facility] Music Store Manager 12/10/14 Vamsi Cohen MD Primary Staff Physician Cardiology 11/13/18 Pricing Director Relationship Specialty Start Date End Date eliseoDashawn, AOC DIRECTOR INTELLIGENCE OFFICER.PIE CRIMPING MACHINE OPERATOR [address] [place] [address] PCP - General Family Medicine 03/08/22 Latosha Johnson, [facility] Music Store Manager 12/10/14 Vamsi Cohen MD Primary Staff Physician Cardiology 11/13/18 Pricing Director Relationship Specialty Start Date End Date Dashawn Cain, AOC DIRECTOR INTELLIGENCE OFFICER.PIE CRIMPING MACHINE OPERATOR [address] [place] [address] PCP - General Family Medicine 03/08/22 Latosha Johnson, [facility] Music Store Manager 12/10/14 Vamsi Cohen MD Primary Staff Physician Cardiology 11/13/18 Pricing Director Relationship Specialty Start Date End Date Dashawn Cain, AOC DIRECTOR INTELLIGENCE OFFICER.PIE CRIMPING MACHINE OPERATOR [address] [facility] [address] PCP - General Family Medicine 03/08/22 Latosha Johnson, [facility] Music Store Manager 12/10/14 Vamsi Cohen MD Primary Staff Physician Cardiology 11/13/18 Pricing Director Relationship Specialty Start Date End Date Dashawn Cain, AOC DIRECTOR INTELLIGENCE OFFICER.PIE CRIMPING MACHINE OPERATOR [address] [facility] [place] [address] PCP - General Family Medicine 03/08/22 Latosha Johnson [facility] Music Store Manager 12/10/14 Vamsi Cohen MD Primary Staff Physician Cardiology 11/13/18 Pricing Director Relationship Specialty Start Date End Date Dashawn Cain, AOC DIRECTOR INTELLIGENCE OFFICER.PIE CRIMPING MACHINE OPERATOR PCP - General Family Medicine 03/08/22 Latosha Johnson, [facility] Music Store Manager 12/10/14 Vamsi Cohen MD Primary Staff Physician Cardiology 11/13/18 Pricing Director Relationship Specialty Start Date End Date Dashawn Cain, AOC DIRECTOR INTELLIGENCE OFFICER.[facility] PCP - General Family Medicine 03/08/22 Latosha Johnson, STRIKER OFF Music Store Manager 12/10/14 Vamsi Cohen MD Primary Staff Physician Cardiology 11/13/18 Pricing Director Relationship Specialty Start Date End Date Latosha Johnson, STRIKER OFF Music Store Manager 12/10/14 Vamsi Cohen MD Primary Staff Physician Cardiology 11/13/18 Pricing Director Relationship Specialty Start Date End Date Vivi Smith MD [address] [place] [address] PCP - General Family Medicine 12/08/22 Latosha Johnson LSW Music Store Manager 12/10/14 Vamsi Cohen MD Primary Staff Physician Cardiology 11/13/18 Pricing Director Relationship Specialty Start Date End Date Vivi Smith MD [address] [place] [address] PCP - General Family Medicine 12/08/22 Latosha Johnson LSW Music Store Manager 12/10/14 Vamsi Cohen MD Primary Staff Physician Cardiology 11/13/18 Pricing Director Relationship Specialty Start Date End Date Vivi Smith MD [address] [place] [address] PCP - General Family Medicine 12/08/22 Latosha Johnson LSW Music Store Manager 12/10/14 Vamsi Cohen MD Primary Staff Physician Cardiology 11/13/18 Pricing Director Relationship Specialty Start Date End Date Vivi Smith MD [facility] [place] [address] PCP - General Family Medicine 12/08/22 Latosha Johnson, [facility] Music Store Manager 12/10/14 Vamsi Cohen MD Primary Staff Physician Cardiology 11/13/18 Pricing Director Relationship Specialty Start Date End Date Vivi Smith MD [address] [place] [address] PCP - General Family Medicine 12/08/22 Latosha Johnson, [facility] Music Store Manager 12/10/14 Vamsi Cohen MD Primary Staff Physician Cardiology 11/13/18 Pricing Director Relationship Specialty Start Date End Date Vivi Smith MD [address] [place] [address] PCP - General Family Medicine 12/08/22 Latosha Johnson, [facility] Music Store Manager 12/10/14 Vamsi Cohen MD Primary Staff Physician Cardiology 11/13/18 Pricing Director Relationship Specialty Start Date End Date Vivi Smith MD [address] [place] [address] PCP - General Family Medicine 12/08/22 Latosha Johnson, [facility] Music Store Manager 12/10/14 Vamsi Cohen MD Primary Staff Physician Cardiology 11/13/18 Pricing Director Relationship Specialty Start Date End Date Vivi Smith MD [address] [place] [address] [place] [address] PCP - General Family Medicine 12/08/22 Latosha Johnson, STRIKER OFF Music Store Manager 12/10/14 Vamsi Cohen MD Primary Staff Physician Cardiology 11/13/18 Pricing Director Relationship Specialty Start Date End Date RhetteliseoDashawn, AOC DIRECTOR INTELLIGENCE OFFICER.[facility] PCP - General Family Medicine 03/08/22 11/06/22 Vivi Smith MD [facility] [place] [address] PCP - General Family Medicine 12/08/22 Latosha Johnson, STRIKER OFF Music Store Manager 12/10/14 Vamsi Cohen MD Primary Staff Physician Cardiology 11/13/18 Pricing Director Relationship Specialty Start Date End Date Vivi Smtih MD [address] [place] [address] PCP - General Family Medicine 12/08/22 Latosha Johnson, STRIKER OFF Music Store Manager 12/10/14 Vamsi Cohen MD Primary Staff Physician Cardiology 11/13/18 Pricing Director Relationship Specialty Start Date End Date Vivi Smith MD [facility] [place] [address] PCP - General Family Medicine 12/08/22 Latosha Johnson, STRIKER OFF Music Store Manager 12/10/14 Vamsi Cohen MD Primary Staff Physician Cardiology 11/13/18 Pricing Director Relationship Specialty Start Date End Date No, Physician [facility] PCP - General 03/20/23 Team Status: Active Member Role Status Dates No Primary Care Physician Primary Care Provider Active Dr. Lin Johansen MD Emergency Provider Active Dr. David Smith MD Admit Provider, Attending Provider Active Pricing Director Relationship Specialty Start Date End Date Alfredo Mccullough MD [facility] [place] [address] PCP - General 01/18/21 Team Status: Inactive Member Role Status Dates Dr. Greg Philip DO Attending Provider, Emergency P neida Active No Primary Care Physician Primary Care Provider Active Team Status: Inactive Member Role Status Dates No Primary Care Physician Primary Care Provider Active Dr. Marc Carl DO Emergency Provider Active Pricing Director Relationship Specialty Start Date End Date Vivi Smith MD [address] [place] [address] PCP - General Family Medicine 12/08/22 Latosha Johnson [facility] Music Store Manager 12/10/14 Vamsi Cohen MD Primary Staff Physician [...] Care Provider Active Dr. Greg Philip DO Emergency Provider Active Team Status: Inactive [...] Physician Primary Care Provider Active Dr. Lul Andes , DO Emergency Provider Active Dr. Vamsi Duvall , DO Admit Provider, Attending Pr ovider Active Pricing Director Relationship Specialty Start Date End Date Vivi Smith MD [address] [place] [address] PCP - General Family Medicine 12/08/22 Latosha Johnson, STRIKER OFF Music Store Manager 12/10/14 Vamsi Cohen MD Primary Staff Physician Cardiology 11/13/18 Pricing Director Relationship Specialty Start Date End Date Gracie Godoy [address] [place] [address] PCP - General 08/15/23 Pricing Director Relationship Specialty Start Date End Date Vivi Smith MD [address] [place] [address] PCP - General Family Medicine 12/08/22 Latosha Johnson, [facility] Music Store Manager 12/10/14 Vamsi Cohen MD Primary Staff Physician Cardiology 11/13/18 Pricing Director Relationship Specialty Start Date End Date Vivi Smith MD [address] [place] [address] PCP - General Family Medicine 12/08/22 Latosha Johnson, [facility] Music Store Manager 12/10/14 Vamsi Cohen MD Primary Staff Physician Cardiology 11/13/18 Pricing Director Relationship Specialty Start Date End Date Vivi Smith MD [address] [place] [phone] PCP - General Family Medicine 12/08/22 Latosha Johnson, MICHELLE Music Store Manager 12/10/14 Vamsi Cohen MD Primary Staff Physician Cardiology 11/13/18 Kyara Luis, associate publisherImcu Specialist 10/12/23 Team Status: Active Member Role Status Dates SARAH MELLO Primary Care Provider Active Dr. Alexandro Garces MD Emergency Provider Active Dr. Vita Jefferson MD Admit Provider, Attending Prov ider Active Pricing Director Relationship Specialty Start Date End Date Vivi Smith MD [address] [place] [address] PCP - General Family Medicine 12/08/22 Latosha Johnson LSW Music Store Manager 12/10/14 Vamsi Cohen MD Primary Staff Physician Cardiology 11/13/18 Kyara Luis, associate publisherImcu Specialist 10/12/23 Kyara Luis, associate publisher Crotch Piece Baster 10/19/23 Pricing Director Relationship Specialty Start Date End Date Gracie Godoy [facility] [address] [place] [address] PCP - General 08/15/23 Team Status: Inactive Member Role Status Dates Out of Town Doctor Primary Care Provider Active Dr. Lin Johansen MD Attending Provider, Emergency Provider Active Team Status: Inactive Member Role Status Dates Out of Town Doctor Primary Care Provider Active Ed Physician Provider Emergency Provider Active Pricing Director Relationship Specialty Start Date End Date Vivi Smith MD [address] [place] [address] PCP - General Family Medicine 12/08/22 Latosha Johnson, MICHELLE Music Store Manager 12/10/14 Vamsi Cohen MD Primary Staff Physician Cardiology 11/13/18 Kyara Luis, associate publisherImcu Specialist 10/12/23 Pricing Director Relationship Specialty Start Date End Date [facility] [address] [place] [address] PCP - General 08/15/23 Pricing Director Relationship Specialty Start Date End Date [facility] [address] [place] [address] PCP - General 08/15/23 Pricing Director Relationship Specialty Start Date End Date Vivi Smith MD [address] [place] [address] PCP - General Family Medicine 12/08/22 Latosha Johnson, STRIKER OFF Music Store Manager 12/10/14 Vamsi Cohen MD Primary Staff Physician Cardiology 11/13/18 Kyara Luis, associate publisherImcu Specialist 10/12/23 Pricing Director Relationship Specialty Start Date End Date Vivi Smith MD [address] [place] [address] PCP - General Family Medicine 12/08/22 Latosha Johnson LSW Music Store Manager 12/10/14 Vamsi Cohen MD Primary Staff Physician Cardiology 11/13/18 Kyara Luis, associate publisherImcu Specialist 10/12/23 Pricing Director Relationship Specialty Start Date End Date Vivi Smith MD [address] [place] [address] PCP - General Family Medicine 12/08/22 Latosha Johnson LSW Music Store Manager 12/10/14 Vamsi Cohen MD Primary Staff Physician Cardiology 11/13/18 Kyara Luis, associate publisherImcu Specialist 10/12/23 Pricing Director Relationship Specialty Start Date End Date Vivi Smith MD [address] [place] [address] PCP - General Family Medicine 12/08/22 Latosha Johnson LSW Music Store Manager 12/10/14 Vamsi Cohen MD Primary Staff Physician Cardiology 11/13/18 Kyara Luis, associate publisherImcu Specialist 10/12/23 Pricing Director Relationship Specialty Start Date End Date [facility] [address] [place] [address] PCP - General 08/15/23 Pricing Director Relationship Specialty Start Date End Date [facility] [address] [place] [address] PCP - General 08/15/23 Pricing Director Relationship Specialty Start Date End Date Vivi Smith MD [address] [place] [address] PCP - General Family Medicine 12/08/22 Latosha Johnson LSW Music Store Manager 12/10/14 Vamsi Cohen MD Primary Staff Physician Cardiology 11/13/18 Kyara Luis, associate publisherImcu Specialist 10/12/23 Pricing Director Relationship Specialty Start Date End Date Vivi Smith MD [address] [place] [address] PCP - General Family Medicine 12/08/22 Latosha Johnson LSW Music Store Manager 12/10/14 Vamsi Cohen MD Primary Staff Physician Cardiology 11/13/18 Kyara Luis, associate publisherImcu Specialist 10/12/23 Pricing Director Relationship Specialty Start Date End Date Vivi Smith MD [address] [place] [address]22 PCP - General Family Medicine 12/08/22 Latosha Johnson [facility] Music Store Manager 12/10/14 Vamsi Cohen MD Primary Staff Physician Cardiology 11/13/18 Kyara Luis associate publisherImcu Specialist 10/12/23 Pricing Director Relationship Specialty Start Date End Date Vivi Smith MD [address] [place] [address] PCP - General Family Medicine 12/08/22 Latosha Johnson [facility] Music Store Manager 12/10/14 Vamsi Cohen MD Primary Staff Physician Cardiology 11/13/18 Kyara Luis, associate publisherImcu Specialist 10/12/23 Pricing Director Relationship Specialty Start Date End Date Vivi Smith MD [address] [place] [address] PCP - General Family Medicine 12/08/22 Latosha Johnson STRIKER OFF Music Store Manager 12/10/14 Vamsi Cohen MD Primary Staff Physician Cardiology 11/13/18 Kyara Luis, associate publisherImcu Specialist 10/12/23 Pricing Director Relationship Specialty Start Date End Date Vivi Smith MD [address] [place] [address] PCP - General Family Medicine 12/08/22 Latosha Johnson, STRIKER OFF Music Store Manager 12/10/14 Vamsi Cohen MD Primary Staff Physician Cardiology 11/13/18 Kyara Luis, associate publisherImcu Specialist 10/12/23 Pricing Director Relationship Specialty Start Date End Date Alfredo Mccullough MD [address] [place] [phone] PCP - General 01/18/21 Pricing Director Relationship Specialty Start Date End Date Alfredo Mccullough MD [address] [place] [address] [phone] PCP - General 01/18/21 Pricing Director Relationship Specialty Start Date End Date Vivi Smith MD [address] [place] [address] PCP - General Family Medicine 12/08/22 Latosha Johnson LSW Music Store Manager 12/10/14 Vamsi Cohen MD Primary Staff Physician Cardiology 11/13/18 Kyara Luis, associate publisherImcu Specialist 10/12/23 Pricing Director Relationship Specialty Start Date End Date Vivi Smith MD [address] [place] [address] PCP - General Family Medicine 12/08/22 Latosha Johnson LSW Music Store Manager 12/10/14 Vamsi Cohen MD Primary Staff Physician Cardiology 11/13/18 Kyara Luis, associate publisherImcu Specialist 10/12/23 Pricing Director Relationship Specialty Start Date End Date Vivi Smith MD [address] [place] [address] PCP - General Family Medicine 12/08/22 Latosha Johnson, STRIKER OFF Music Store Manager 12/10/14 Vamsi Cohen MD Primary Staff Physician Cardiology 11/13/18 Kyara Luis associate publisherImcu Specialist 10/12/23 Pricing Director Relationship Specialty Start Date End Date Vivi Smith MD [address] [place], [place] [phone] PCP - General Family Medicine 12/08/22 Latosha Johnson LSW Music Store Manager 12/10/14 Vamsi Cohen MD Primary Staff Physician Cardiology 11/13/18 Kyara Luis associate publisherImcu Specialist 10/12/23 Pricing Director Relationship Specialty Start Date End Date Vivi Smith MD [address] [place] [address] PCP - General Family Medicine 12/08/22 Latosha Johnson LSW Music Store Manager 12/10/14 Vamsi Cohen MD Primary Staff Physician Cardiology 11/13/18 Kyara Luis associate publisherImcu Specialist 10/12/23 Pricing Director Relationship Specialty Start Date End Date Vivi Smith MD [address] [place] [address] PCP - General Family Medicine 12/08/22 Latosha Johnson, MICHELLE Music Store Manager 12/10/14 Vamsi Cohen MD Primary Staff Physician Cardiology 11/13/18 Kyara Luis, associate publisherImcu Specialist 10/12/23 Pricing Director Relationship Specialty Start Date End Date Vivi Smith MD [address] [place] [address] PCP - General Family Medicine 12/08/22 Latosha Johnson [facility] Music Store Manager 12/10/14 Vamsi Cohen MD Primary Staff Physician Cardiology 11/13/18 Kyara Luis, associate publisherImcu Specialist 10/12/23 Pricing Director Relationship Specialty Start Date End Date [facility] [address] [place] [address] PCP - General 08/15/23 Pricing Director Relationship Specialty Start Date End Date [facility] [address] [place] [address] PCP - General 08/15/23 Reason for Visit [...] Orders Specialty Diagnoses / Procedures Referred By Contac t Referred To Contact TACTICAL DEBRIEFER OFFICER Diagnoses STD exposure ROCEPHIN INJECTION - GONORRHEA Procedures INJECTION Phoebe, AOC DIRECTOR INTELLIGENCE OFFICER.PIE CRIMPING MACHINE OPERATOR [address] [place] [address] Phoebe, AOC DIRECTOR INTELLIGENCE OFFICER.PIE CRIMPING MACHINE OPERATOR [address] [place] [id number] Referral ID Status Reason Start Date Expiration Date V isits Requested Visits Authorized [id number] Closed Benefit Check 05/10/2022 08/27/2022 1 1 Reason Comments Appointment Reason Comments STD JASON Reason Comments Forms [facility] Reason Comments Husain LMN for insulin pump/pump suppli es Reason [...] Emesis Specialty Diagnoses / Procedures Referred By Contac t Referred To Contact Diagnoses Ketonuria Bradycardia Nausea & vomiting Hyperglycemia Abdominal pain, unspecified abdominal location Chest pain, unspecified type Nausea and vomiting, unspecified vomiting type Referral ID Status Reason Start Date Expiration Date Visits Re quested Visits Authorized [id number] 1 1 Reason Onset Date Comments Med Refill 05/02/2023 Reason Comments High Blood Sugar Reason Onset Date Comments Transition Of Care 08/15/2023 Reason Onset Date Comments Imcu Specialist Chronic Care 09/29/2023 Reason Onset Date Comments Refill Request 09/21/2023 Reason Comments Forms DME: [facility]CS for pump gleason pplies Reason Onset Date Comments Imcu Specialist Chronic Care 10/12/2023 Reason Onset Date Comments Transition Of Care 10/19/2023 Message Reason Onset Date Comments Transition Of Care 10/20/2023 Reason Onset Date Comments Transition Of Care 10/27/2023 Reason Onset Date Comments Transition Of Care 11/03/2023 Reason Onset Date Comments Transition Of Care 11/10/2023 Reason Comments Psoriasis (PKN) Reason Onset Date Comments Imcu Specialist Chronic Care 12/15/2023 Reason Onset Date Comments [...] DSME MEDICAL NUTRITION ASSMT&IVNTJ INDIV EACH 15 [place] MEDICAL NUTRITION ASSMT&IVNTJ INDIV EACH 15 [place] MEDICAL NUTRITION ASSMT&IVNTJ INDIV EACH 15 [place] MEDICAL NUTRITION ASSMT&IVNTJ INDIV EACH 15 [place] Kvng Lewis MD [address] [place] [address] Referral ID Status Reason Start Date Expiration Date V isits Requested Visits Authorized [id number] Closed PCP Requested Referral 03/12/2024 03/12/2025 1 [...] to swallow. 0405 (Given - Provider: Liang Boothe, STIVEN) enoxaparin (LOVENOX) syringe 40 mg 40 mg, Subcutaneous, Daily, First dose on Mon03/20/23 at 1235, Administer in abdomen unless otherwise directed by prescriber. Notify physician if patient refuses., Indication: VTE Prophylaxis 1235 (Not Given - Provider: Zee Chahal RN - Reason: Patient/family refused) 0944 (Given - Provider: Omari Bradley RN) 0925 (Given - Provider: Alta Teague, STIVEN) heparin, porcine (PF) injection 500 Units (COMPLETED) [...] MEALtime PREprandial 1238 (Given - Provider: Zee Chahal RN)1813 (Given - Provider: Liang Purcell RN) 0730 (Not Given - Provider: Omari Bradley, RN - Reason: Patient/family refused)1130 (Not Given - Provider: Omari Bradley, RN - Reason: Patient/family refused) pantoprazole (PROTONIX) injection 40 mg 40 mg, Intravenous, 2 times daily, First dose on Mon03/20/23 at 1410, Dilute each vial with 10 mL of 0.9% NaCl. 181 (Given - Provider: Liang Purcell, STIVEN)2099 (Not Given - Provider: Liang Boothe RN - Reason: Contraindicated - Comment: Too soon to previosu dose administration, pharmacy stated to hold and give 9am dose.) 0944 (Given - Provider: Omari Bradley, RN)2106 (Given - Provider: Liang Boothe, STIVEN) 922 (Given - Provider: Alta Teague, STIVEN) potassium chloride SA (K-DUR,KLOR-CON) CR tablet 40 mEq (COMPLETED) 40 mEq, Oral, Once, On Mon03/22/23 at 0945, For 1 dose, DO NOT CRUSH OR CHEW (if instructed may dissolve tablet(s) in liquid) DO NOT ADMINISTER DISSOLVED TABLET VIA SURGICALLY PLACED TUBE OR TUBE less than 14 English. To administer dissolved tablet(s) mix with 4 ounces of water over 2-3 minutes, stir for 30 seconds prior to administration; rinse dosing cup and administer residual medication to ensure full dose given 923 (Given - Provider: Alta Teague, STIVEN) prochlorperazine (COMPAZINE) injection 10 mg (COMPLETED) 10 [...] 1 dose 2324 (Given - Provider: Liang oBothe, STIVEN) sodium chloride (PF) (NS) flush 5 mL(Linked [...] PRN given)1400 (Not Given - Provider: Omari Bradley, RN - Reason: Patient/family refused)2200 (Not Given [...] Pt declines.) 0544 (Given - Provider: Liang Boothe RN)1150 (Given - Provider: Omari Bradley, STIVEN)1823 (Given - Provider: Omari Bradley, RN)2100 (Not Given - Provider: Liang Boothe, RN - Reason: Other - Comment: too soon to previous administration) 0538 (Given - Provider: Liang Boothe, RN)1148 (Given - Provider: Alta Teague, RN)1630 (Due) Continuous Medication Order 03/20/2023 03/21/2023 03/22/2023 lactated Ringers infusion () 100 mL/hr, Intravenous, Continuous, Starting on Mon03/20/23 at 1235, For 10 hours 1235 (New Bag - Provider: Zee Chahal, STIVEN)1805 (New Bag - Provider: Sixto Mercado, STIVEN)2300 (Stopped - Provider: Liang Boothe, STIVEN) subcutaneous insulin pump Misc Miscellaneous, Continuous, Starting [...] at 1132 1927 (Given - Provider: Liang Boothe, STIVEN) iopamidoL (ISOVUE-370) 370 mg iodine /mL (76 [...] buttocks quadrant. 2313 (Given - Provider: Liang Boothe RN) 0544 (Given - Provider: Liang Boothe RN)1150 (Given - Provider: Omari Bradley, STIVEN)1927 (Given - Provider: Liang Boothe RN) 0429 (Given - Provider: Liang Boothe RN) prochlorperazine (COMPAZINE) injection 5 mg (CANCELED) 5 mg, Intravenous, Every 6 hours PRN, nausea, vomiting, Starting on Mon03/20/23 at 1231, If IV, give slow IV push at a rate not exceeding 5 mg/minute and remain lying down for 30 minutes to reduce risk of hypotension. If IM, inject deep into outer buttocks quadrant. 175 (Given - Provider: Sixto Mercado RN)2307 (Return to [facility] - Provider: Liang Boothe RN) promethazine (PHENERGAN) suppository 12.5 mg 12.5 mg, Rectal, Every 6 hours PRN, nausea, vomiting, Starting on Mon03/21/23 at 1006 sodium chloride (PF) (NS) 0.9 % contrast line flush 10 mL (COMPLETED) 10 mL, Intravenous, Once in imaging, contrast, Per nursing education specialist (Radiology) for line patency check prior to contrast administration, Starting on Mon03/20/23 at 0551, For 1 dose 0806 (Given - Provider: Kaylyn Alvarado, TECHNOLOGIST) sodium chloride (PF) (NS) 0.9 % contrast line flush 80 mL (COMPLETED) 80 mL, Intravenous, Once in imaging, contrast, Per nursing education specialist (Radiology), Starting on Mon03/20/23 at 0551, [...] BE BASED ON THE PRIMARY CLINICAL RECORDS. [employer] provides no warranty or guarantee of the accuracy or completeness of information in this document.
[2025-05-03 18:37] LABS: Mucous, Urine 0 SEEN /hpf (<or=2+); Red Blood Cells-Urine 0 SEEN /hpf (0-5)
[2025-05-03 18:38] LABS: Color, Urine Yellow (Yellow); Glucose, Dipstick 1000 mg/dl (Normal); Leukocyte Esterase-Dipstick Negative /ul (Negative); Nitrite-Dipstick Negative (Negative); Occult Blood-Urine 25 /ul (Negative); Protein-Dipstick 100 mg/dl (Negative); Specific Gravity, Urine 1.025 (1.002-1.030); Urine Bilirubin Dipstick Negative (Negative)
[2025-05-03 18:39] LABS: Ketone-Dipstick 150 mg/dl (Negative)
[2025-05-03 18:44] LABS: Hematocrit 42.6 % (37-47); Hemoglobin 14.5 g/dL (12.0-15.0); Immature Granulocytes Count 0.080 X10^3/uL (0.0-0.0); Mean Corp Hgb Conc 34.0 g/dL (32-36); Mean Corpuscular Volume 86.9 fL (81-99); Mean Platelet Vol. 12.1 fl (6.2-12.0); NRBC Flagged by Analyzer 0 % (0-5); Platelet Count 189 K/mm3 (150-450); RBC Distribution Width CV 13.3 % (11.6-14.6); RBC Distribution Width SD 42.6 fl (35.1-43.9); Red Blood Count 4.90 M/mm3 (4.2-5.4); White Blood Count 16.4 K/mm3 (4.4-11.0)
[2025-05-03 18:47] LABS: Squamous Epithelial Cells - UA 5-10 SEEN /hpf (5-10)
[2025-05-03 19:06] LABS: Anion Gap 22 (5-15); BETA-HYDROXYBUTYRATE 3.2 mmol/L (0.0-0.3); BUN 17 mg/dL (4-19); BUN/Creat Ratio 21.6 RATIO (10-20); Calcium,Total 9.7 mg/dL (7.6-11.0); Carbon Dioxide 12.8 mmol/L (21.0-32.0); Chloride 99 mmol/L (98-108); Glucose 314 mg/dL (70-99); Magnesium 2.1 mg/dL (1.5-2.2); Potassium 4.2 mmol/L (3.3-5.1)
--- OUTSIDE RECORDS SUMMARY | 2025-05-03 19:58 | XMS RPT_ITS | CCD ---
Author Organization [facility] Care Team Providers Care Showroom Salesperson Name Role Phone MEDICAL, CLINIC Unavailable Unavailable TEACH, MTS LUCY Unavailable Unavailable VAMSI MARRUFO Unavailable Unavailable MEDICAL, CLINIC Unavailable Unavailable Latosha Castro Unavailable Unavailab Vamsi Zaidi MD Unavailable [facility] Primary Care Provi benjie PHYSICIAN, PATIENT UNSURE Primary Care Physician Unavailable Kamwesa PAIN MANAGEMENT NURSE PRACTITIONER.Dashawn MALAVE Primary Care Provider Vamsi Cohen MD Unavailable [phone] Kamwesa PAIN MANAGEMENT NURSE PRACTITIONER.Dashawn MALAVE Primary Care Provider Vamsi Cohen MD Unavailable [facility] Care Provi benjie Kamwesa PAIN MANAGEMENT NURSE PRACTITIONER.Dashawn MALAVE Primary Care Provider Latosha Castro Unavailable Unavailab Vamsi Zaidi MD Unavailable Kamwesa PAIN MANAGEMENT NURSE PRACTITIONER.Dashawn MALAVE Primary Care Provider Kamwesa PAIN MANAGEMENT NURSE PRACTITIONER.Dashawn MALAVE Primary Care Provider Vivi Smith MD Primary Care Provider Kamwesa PAIN MANAGEMENT NURSE PRACTITIONER.Dashawn MALAVE Primary Care Provider No, Physician Primary [...] Attending Provider Dr. Ileana Lobo Other Provider [facility] Primary Care Provider Unav ailDr. Lul [...] Provider Dr. Dangelo Encarnacion Other Provider [phone] FUNMILAYO SMITH Primary Care Provider Dr. Alexandro [...] SMITH, VIVI BARAHONA Attending Unavailabl e [facility] Primary Care Unavailabl e SMITH, AHLAAngel BARAHONA Primary Care Unavailabl e SMITH, AHLAAngel KHPATRICIO Primary Care Unavailabl e CAMILO CENTENO [...] Unavailabl e JESSICA GUERRERO Attending Unavailable [facility] Primary Care UnavailKVNG Bush Attending Unavailable [facility] Primary Care Unavailabl e JASON PAREDES Attending Unavailable SMITH, AHLAD [facility] Primary Care Unavailabl e JASON PAREDES Referring Unavailable SMITH, [facility] Primary Care Unavailabl e JESSICA GUERRERO Attending Unavailable KVNG LEWIS Referring Unavailable SMITH, [facility] Primary Care Unavailabl e LETICIA HYLTON Attending Unavailable SMITH, [facility] Primary Care Unavailabl e MISHEL ORTEZ Attending Unavailable [facility] Primary Care Unavailable Marc Carl Attending Unavailable Care Physician, No Primary Primary Care Unava ilable Vamsi Duvall Admitting Unavailable Estevan Davis Attending Unavailable Care Physician, No Primary Primary Care Unava ilable Vamsi Duvall Consulting Unavailable Ileana Lobo Consulting Unavailable Ileana Lobo Admitting Unavailable Dangelo Encarnacion Attending Unavailable Beam VSC, [facility] Primary Care Unavailable Beam VSC, [facility] Primary Care Unavailable Vita Jefferson Attending Unavailable Sdidharth Saucedo Consulting Unavailable Siddharth Saucedo Admitting Unavailable [...] Sedrick Consulting Unavailable Nelda Hopper Consulting Unavailable [employer] Consulting Unavailable Jose A Anderson Consulting [...] Unavailable David Smith Consulting Unavailable Beam VS, [facility] Primary Care Unavailable David Smith Admitting Unavailable Marc Carl Referring Unavailable Estevan [place] Attending Unavailable Vita Jefferson Consulting Unavailable Care Physician, No Primary Primary Care Unava ilable Chirinos, Rm Attending Unavailable Dangelo Encarnacion Admitting Unavailable [facility], [facility] Unavailable Greg Mon Attending Unavailable [...] Consulting Unavailable John Knapp Attending Unavailable ybarger [facility] Attending [facility] e Care Physician, No Primary Primary Care Unava ilable Allergies Allergy Classification Reported Allergen(s) Allergy Type Date of Onset Reaction(s) Facility Acetaminophen / oxyCODONE (2 sources) Acetaminophen / oxyCODONE Drug Allergy 4 Itching, Rash, Intolerance [facility] Adhesive Tape (1 source) Adhesive Tape Substance Allergy 4 Rash [facility] Cephalosporins (antibiotic) (2 sources) Cephalexin Drug Allergy 4 Other: See Comments [facility] NSAIDs (1 source) Indomethacin Drug Allergy 4 Rash [facility] Ondansetron (2 sources) Ondansetron Drug Allergy 5 Other: See Comments [facility] Opioid Agonists (2 sources) Morphine Drug Allergy 4 Itching, Rash [facility] (20 sources) Acetaminophen / oxyCODONE; Translations: [acetaminophen-ox ycodone] Drug Allergy 4 Rash, Intolerance, Itching [facility] (20 sources) Adhesive Tape; Translations: [ADHESIVE TAPE (ROSINS)] Allergy to substance 4 Rash [facility] (20 sources) Cephalexin; Translations: [cephalexin] Drug Allergy 4 Other: See Comments, Urinary tract infectious disease (disorder) [facility] Work Phone: (20 sources) Morphine; Translations: [morphine] Drug Allergy 4 Rash, Itching [facility] (20 sources) Ondansetron; Translations: [ONDANSETRON HCL (PF)] Drug Allergy 5 Other: See Comments, Other (See Comments) [facility] (1 source) Adhesive Tape Propensity to adverse reactions to substance Redness [facility] (20 sources) Ondansetron; Translations: [ondansetron] Drug Allergy 5 I BLACK OUT AND LOSE CONTROL OF MY BLADDER [facility] (20 sources) Adhesive agent; Translations: [ADHESIVE] Drug Allergy 3 Rash [facility] (20 sources) Indomethacin; Translations: [INDOMETHACIN] Drug Allergy 4 [facility] (2 sources) Adhesive Tape-Silicones; Translations: [ADHESIVE TAPE-SILICONES] Propensity to adverse reactions to drug 3 [facility] (1 source) Ondansetron; Translations: [ONDANSETRON HCL] Drug Allergy 3 [facility] Repository (2 sources) Acetaminophen Drug Allergy 3 [facility] (15 sources) Adhesive Tape; Translations: [adhesive tape] Allergy to substance 3 [facility] (15 sources) oxyCODONE Drug Allergy 3 Itching, Rash [facility] (1 source) Acetaminophen Drug Allergy 3 Itching, Rash [facility] (1 source) Wound Dressing Adhesive Drug Allergy 3 [facility] (1 source) Cephalexin Drug Allergy 5 [facility] Repository (1 source) Morphine Drug Allergy 5 [facility] Repository (1 source) Ondansetron Drug Allergy 5 [facility] Repository (1 source) oxyCODONE Drug Allergy 5 [facility] Repository Medications Current Medications Medication Drug Class(es) Dates Sig (Normalized) Sig (Original) acetaminophen 325 mg / HYDROcodone bitartrate 5 mg oral tablet (2 sources) Opioid Agonist Start: 10-21-2024 take 1 tablet by mouth every six hours as needed for pain HYDROcodone-aceta minophen (Howe) 5-325 MG tablet TAKE 1 TABLET BY [...] Active Comment on above: Use as directed [id number] 200 actuat albuterol 0.09 mg/actuat metered dose [...] 12-09-2024 cholecalcifero l (Vitamin D-3) 1.25 MG (25188 UT) capsule Take by mouth 1 (one) [...] / neomycin 3.5 mg/ml / polymyxin b 21789 unt/ml ophthalmic suspension (1 source) Aminoglycoside Antibacterial, [...] Diabetes mellitus type 1, controlled, without complications ([facility]) Please inject three times a day with [...] hyperglycemia, with long-term current use of insulin ([facility]) Use in the Insulin Pump for TDD [...] Comment on above: Take 1 capsule by [facility] twice daily with meals. metoclopramide 5 [...] Indications: Obstruction of central line, initial encounter ([facility]) 2 mL by INTRALUMINAL route one time [...] hyperglycemia, with long-term current use of insulin ([facility]) , Insulin pump status Use 1 Richey in the nose as needed for low [...] subcutaneously for insulin shock. 250.03 Use 1 Richey in the n ose as needed for [...] on above: Take 4 tablets by mo [facility] as needed. heparin (1 source) Unfractionated Heparin, [...] Comment on above: Take 1 capsule by [facility] once daily. Administer on an empty [...] current use of drug therapy; Translations: [Other [facility] (current) drug therapy] 01-27-2025 Episodic Other aftercare (2 sources) Other [facility] (current) drug therapy; Translations: [Other [facility] (current) drug therapy] Onset: 01-27-2025 Episodic Other [...] W/Diff, Automatedon 08-0 PATH REV Reviewed Normal [facility] Comment on above: Result Comment: SEE REPORT IN PATIENT'S EMR AMENDED REPORT 03/31/25 1600 PATH REV previously reported as: December Performed By: #### L 100.0100, L500.4050, L501.2450, L700.6800 ####[facility] [address] [place], [address] Gastroenterology Visit Repor ton 03-31-2025 Gastroenterology Visit Report Normal [facility] Basic Metabolic Profile (BMP )on 03-19-2025 CO2 [Moles/Vol] 9.9 mmol/L Invalid Interpretation Code 21.0-32.0 [facility] Comment on above: Result Comment: Crit ical [...] same. Performed By: #### L 500.2500, L100.0100 ####[facility] [address] [place], [address] Bedside Glucoseon 03-19-2025 FINGERSTICK GLU 256 mg/dL High 74-106 [facility] Comment on above: Result Comment: EDGAR HUNG OF PATIENT CARE PER NURSING PROTOCOL Performed By: #### L 501.080 ####[facility] [address] [place], [address] CBC W/Diff, Automatedon 02-26 Absolute Lymph 1.18 X10 3/uL Normal 0.83-4.51 [facility] Comment on above: Performed By: #### L 500.2500, L100.0100 ####[facility] [address] [place], [address] Absolute Neut 15.3 X10 3/uL High 2.0-7.7 [facility] Comment on above: Performed By: #### L 500.2500, L100.0100 ####[facility] [address] [place], [address] Basophils/100 WBC (Bld) 0.3 % Normal 0-1 [facility] Comment on above: Performed By: #### L 500.2500, L100.0100 ####[facility] [address] [place], [address] Eosinophils/100 WBC (Bld) 0.0 % Normal 0-5 [facility] Comment on above: Performed By: #### L 500.2500, L100.0100 ####[facility] [address] [place], [address] Erythrocyte distribution width (RBC) [Ratio] 13.8 % Normal 11.6-14.6 [facility] Comment on above: Performed By: #### L 500.2500, L100.0100 ####[facility] [address] [place], [address] Hematocrit (Bld) [Volume fraction] 40.2 % Normal 37-47 [facility] Comment on above: Performed By: #### L 500.2500, L100.0100 ####[facility] [address] [place], [address] Hemoglobin (Bld) [Mass/Vol] 13.5 g/dL Normal 12.0-15.0 [facility] Comment on above: Performed By: #### L 500.2500, L100.0100 ####[facility] [address] [place], [address] IG% 1.100 High 0.0-0.9 [facility] Comment on above: Result Comment: IG% - Immature Granulocytes (promyelocytes, myelocytes andmetamyelocytes) > 1% indicates that a LEFT SHIFT is Present. Performed By: #### L 500.2500, L100.0100 ####[facility] [address] [place], [address] Lymphocytes/100 WBC (Bld) 6.8 % Low 19-41 [facility] Comment on above: Performed By: #### L 500.2500, L100.0100 ####[facility] [address] [place], [address] MCH (RBC) [Entitic mass] 29.3 pg Normal 27.0-32.0 [facility] Comment on above: Performed By: #### L 500.2500, L100.0100 ####[facility] [address] [place], [address] MCHC (RBC) [Mass/Vol] 33.6 g/dL Normal 32-36 [facility] Comment on above: Performed By: #### L 500.2500, L100.0100 ####[facility] [address] [place], [address] MCV (RBC) [Entitic vol] 87.4 fL Normal 81-99 [facility] Comment on above: Performed By: #### L 500.2500, L100.0100 ####[facility] [address] [place], [address] Monocytes/100 WBC (Bld) 3.2 % Normal 0-10 [facility] Comment on above: Performed By: #### L 500.2500, L100.0100 ####[facility] [address] [place], [address] Neutrophils/100 WBC (Bld) 88.6 % High 47-70 [facility] Comment on above: Performed By: #### L 500.2500, L100.0100 ####[facility] [address] [place], [address] Nucleated RBC (Bld) [#/Vol] 0 10*3/uL Normal 0-5 [facility] Comment on above: Performed By: #### L 500.2500, L100.0100 ####[facility] [address] [place], [address] Platelet mean volume (Bld) [Entitic vol] 11.7 fL Normal 6.2-12.0 [facility] Comment on above: Performed By: #### L 500.2500, L100.0100 ####[facility] [address] [place], [address] Platelets (Bld) [#/Vol] 165 10*3/uL Normal 150-450 [facility] Comment on above: Performed By: #### L 500.2500, L100.0100 ####[facility] [address] [place], [address] RBC (Bld) [#/Vol] 4.60 10*6/uL Normal 4.2-5.4 [facility] Comment on above: Performed By: #### L 500.2500, L100.0100 ####[facility] [address] [place], [address] RDW SD 43.9 fl Normal 35.1-43.9 [facility] Comment on above: Performed By: #### L 500.2500, L100.0100 ####[facility] [address] [place], [address] WBC (Bld) [#/Vol] 17.3 10*3/uL High 4.4-11.0 [facility] Comment on above: Performed By: #### L 500.2500, L100.0100 ####[facility] [address] [place], [address] Discharge Instructionon 02-26 Discharge Instruction Normal [facility] Magnesiumon 03-19-2025 Magnesium [Mass/Vol] 1.8 mg/dL Normal 1.5-2.2 [facility] Comment on above: Performed By: #### L 501.2300, L501.5200 ####[facility] [address] [place], [address] Phosphoruson 03-19-2025 Phosphate [Mass/Vol] 1.7 mg/dL Low 2.7-4.5 [facility] Comment on above: Performed By: #### L 501.2300, L501.5200 ####[facility] [address] [place], [address] Basic Metabolic Profile (BMP )on 03-18-2025 BUN/CRE 8.4 RATIO Low 10-20 [facility] Comment on above: Performed By: #### L 500.2500 ####[facility] [address] [place], [address] Calcium [Mass/Vol] 8.6 mg/dL Normal 7.6-11.0 [facility] Comment on above: Performed By: #### L 500.2500 ####[facility] [address] [place], [address] Chloride [Moles/Vol] 109 mmol/L High 98-108 [facility] Comment on above: Performed By: #### L 500.2500 ####[facility] [address] [place], [address] CO2 [Moles/Vol] 16.1 mmol/L Low 21.0-32.0 [facility] Comment on above: Performed By: #### L 500.2500 ####[facility] [address] [place], [address] Creatinine [Mass/Vol] 0.75 mg/dL Normal 0.70-1.20 [facility] Comment on above: Performed By: #### L 500.2500 ####[facility] [address] [place], [address] ECRCL 114.62 ml/min Normal 50-250 [facility] Comment on above: Performed By: #### L 500.2500 ####[facility] [address] [place], [address] GAP 12 Normal 5-15 [facility] Comment on above: Performed By: #### L 500.2500 ####[facility] [address] [place], [address] GFR/1.73 sq M.predicted among non-blacks MDRD (S/P/Bld) [Vol rate/Area] 110 mL/min/{1.73_m2} Normal >60 [facility] Comment on above: Result Comment: mL/m in/1.73m2 CKD-EPI Creatinine Equation (2020) Performed By: #### L 500.2500 ####[facility] [address] [place], [address] Glucose [Mass/Vol] 142 mg/dL High 70-99 [facility] Comment on above: Performed By: #### L 500.2500 ####[facility] [address] [place], [address] Potassium [Moles/Vol] 3.8 mmol/L Normal 3.3-5.1 [facility] Comment on above: Result Comment: Hemo lysis present, Results??could be affected.?? Performed By: #### L 500.2500 ####[facility] [address] [place], [address] Sodium [Moles/Vol] 138 mmol/L Normal 133-145 [facility] Comment on above: Performed By: #### L 500.2500 ####[facility] [address] [place], [address] Urea nitrogen [Mass/Vol] 6 mg/dL Normal 4-19 [facility] Comment on above: Performed By: #### L 500.2500 ####[facility] [address] [place], [address] BUN/CRE 9.9 RATIO Low 10-20 [facility] Comment on above: Performed By: #### L 500.2500 ####[facility] [address] [place], [address] Calcium [Mass/Vol] 8.4 mg/dL Normal 7.6-11.0 [facility] Comment on above: Performed By: #### L 500.2500 ####[facility] [address] [place], [address] Chloride [Moles/Vol] 110 mmol/L High 98-108 [facility] Comment on above: Performed By: #### L 500.2500 ####[facility] [address] [place], [address] CO2 [Moles/Vol] 14.1 mmol/L Low 21.0-32.0 [facility] Comment on above: Performed By: #### L 500.2500 ####[facility] [address] [place], [address] Creatinine [Mass/Vol] 0.74 mg/dL Normal 0.70-1.20 [facility] Comment on above: Performed By: #### L 500.2500 ####[facility] [address] [place], [address] ECRCL 116.17 ml/min Normal 50-250 [facility] Comment on above: Performed By: #### L 500.2500 ####[facility] [address] [place], [address] GAP 14 Normal 5-15 [facility] Comment on above: Performed By: #### L 500.2500 ####[facility] [address] [place], [address] GFR/1.73 sq M.predicted among non-blacks MDRD (S/P/Bld) [Vol rate/Area] 112 mL/min/{1.73_m2} Normal >60 [facility] Comment on above: Result Comment: mL/m in/1.73m2 CKD-EPI Creatinine Equation (2020) Performed By: #### L 500.2500 ####[facility] [address] [place], [address] Glucose [Mass/Vol] 187 mg/dL High 70-99 [facility] Comment on above: Performed By: #### L 500.2500 ####[facility] [address] [place], [address] Potassium [Moles/Vol] 3.9 mmol/L Normal 3.3-5.1 [facility] Comment on above: Performed By: #### L 500.2500 ####[facility] [address] [place], [address] Sodium [Moles/Vol] 138 mmol/L Normal 133-145 [facility] Comment on above: Performed By: #### L 500.2500 ####[facility] [address] [place], [address] Urea nitrogen [Mass/Vol] 7 mg/dL Normal 4-19 [facility] Comment on above: Performed By: #### L 500.2500 ####[facility] [address] [place], [address] BUN/CRE 10.8 RATIO Normal 10-20 [facility] Comment on above: Performed By: #### L 500.2500 ####[facility] [address] [place], [address] Calcium [Mass/Vol] 8.3 mg/dL Normal 7.6-11.0 [facility] Comment on above: Performed By: #### L 500.2500 ####[facility] [address] [place], [address] Chloride [Moles/Vol] 108 mmol/L Normal 98-108 [facility] Comment on above: Performed By: #### L 500.2500 ####[facility] [address] [place], [address] CO2 [Moles/Vol] 10.5 mmol/L Low 21.0-32.0 [facility] Comment on above: Performed By: #### L 500.2500 ####[facility] [address] [place], [address] Creatinine [Mass/Vol] 0.83 mg/dL Normal 0.70-1.20 [facility] Comment on above: Performed By: #### L 500.2500 ####[facility] [address] [place], [address] ECRCL 103.58 ml/min Normal 50-250 [facility] Comment on above: Performed By: #### L 500.2500 ####[facility] [address] [place], [address] GAP 17 High 5-15 [facility] Comment on above: Performed By: #### L 500.2500 ####[facility] [address] [place], [address] GFR/1.73 sq M.predicted among non-blacks MDRD (S/P/Bld) [Vol rate/Area] 98 mL/min/{1.73_m2} Normal >60 [facility] Comment on above: Result Comment: mL/m in/1.73m2 CKD-EPI Creatinine Equation (2020) Performed By: #### L 500.2500 ####[facility] [address] [place], [address] Glucose [Mass/Vol] 219 mg/dL High 70-99 [facility] Comment on above: Performed By: #### L 500.2500 ####[facility] [address] [place], [address] Potassium [Moles/Vol] 4.4 mmol/L Normal 3.3-5.1 [facility] Comment on above: Result Comment: Hemo lysis present, Results??could be affected.?? Performed By: #### L 500.2500 ####[facility] [address] [place], [address] Sodium [Moles/Vol] 136 mmol/L Normal 133-145 [facility] Comment on above: Performed By: #### L 500.2500 ####[facility] [address] [place], [address] Urea nitrogen [Mass/Vol] 9 mg/dL Normal 4-19 [facility] Comment on above: Performed By: #### L 500.2500 ####[facility] [address] [place], [address] BUN/CRE 11.7 RATIO Normal 10-20 [facility] Comment on above: Performed By: #### L 500.2500 ####[facility] [address] [place], [address] Calcium [Mass/Vol] 8.3 mg/dL Normal 7.6-11.0 [facility] Comment on above: Performed By: #### L 500.2500 ####[facility] [address] [place], [address] Chloride [Moles/Vol] 106 mmol/L Normal 98-108 [facility] Comment on above: Performed By: #### L 500.2500 ####[facility] [address] [place], [address] CO2 [Moles/Vol] 7.8 mmol/L Invalid Interpretation Code 21.0-32.0 [facility] Comment on above: Result Comment: Crit ical Result(s) Called at: 0446 by:??JULIÁN AQUINO. Results read back by same. Performed By: #### L 500.2500 ####[facility] [address] [place], [address] Creatinine [Mass/Vol] 0.94 mg/dL Normal 0.70-1.20 [facility] Comment on above: Performed By: #### L 500.2500 ####[facility] [address] [place], [address] ECRCL 91.46 ml/min Normal 50-250 [facility] Comment on above: Performed By: #### L 500.2500 ####[facility] [address] [place], [address] GAP 23 High 5-15 [facility] Comment on above: Performed By: #### L 500.2500 ####[facility] [address] [place], [address] GFR/1.73 sq M.predicted among non-blacks MDRD (S/P/Bld) [Vol rate/Area] 83 mL/min/{1.73_m2} Normal >60 [facility] Comment on above: Result Comment: mL/m in/1.73m2 CKD-EPI Creatinine Equation (2020) Performed By: #### L 500.2500 ####[facility] [address] [place], [address] Glucose [Mass/Vol] 238 mg/dL High 70-99 [facility] Comment on above: Performed By: #### L 500.2500 ####[facility] [address] [place], [address] Potassium [Moles/Vol] 4.7 mmol/L Normal 3.3-5.1 [facility] Comment on above: Result Comment: Hemo lysis present, Results??could be affected.?? Performed By: #### L 500.2500 ####[facility] [address] [place], [address] Sodium [Moles/Vol] 136 mmol/L Normal 133-145 [facility] Comment on above: Performed By: #### L 500.2500 ####[facility] [address] [place], [address] Urea nitrogen [Mass/Vol] 11 mg/dL Normal 4-19 [facility] Comment on above: Performed By: #### L 500.2500 ####[facility] [address] [place], [address] BUN/CRE 13.0 RATIO Normal 10-20 [facility] Comment on above: Performed By: #### L 500.2500 ####[facility] [address] [place], [address] Calcium [Mass/Vol] 8.0 mg/dL Normal 7.6-11.0 [facility] Comment on above: Performed By: #### L 500.2500 ####[facility] [address] [place], [address] Chloride [Moles/Vol] 102 mmol/L Normal 98-108 [facility] Comment on above: Performed By: #### L 500.2500 ####[facility] [address] [place], [address] CO2 [Moles/Vol] 6.1 mmol/L Invalid Interpretation Code 21.0-32.0 [facility] Comment on above: Result Comment: Crit ical Result(s) Called at: 0044 by:??JULIÁN AQUINO. Results read back by same. Performed By: #### L 500.2500 ####[facility] [address] [place], [address] Creatinine [Mass/Vol] 1.06 mg/dL Normal 0.70-1.20 [facility] Comment on above: Performed By: #### L 500.2500 ####[facility] [address] [place], [address] ECRCL 81.10 ml/min Normal 50-250 [facility] Comment on above: Performed By: #### L 500.2500 ####[facility] [address] [place], [address] GAP 26 High 5-15 [facility] Comment on above: Performed By: #### L 500.2500 ####[facility] [address] [place], [address] GFR/1.73 sq M.predicted among non-blacks MDRD (S/P/Bld) [Vol rate/Area] 72 mL/min/{1.73_m2} Normal >60 [facility] Comment on above: Result Comment: mL/m in/1.73m2 CKD-EPI Creatinine Equation (2020) Performed By: #### L 500.2500 ####[facility] [address] [place], [address] Glucose [Mass/Vol] 265 mg/dL High 70-99 [facility] Comment on above: Performed By: #### L 500.2500 ####[facility] [address] [place], [address] Potassium [Moles/Vol] 4.6 mmol/L Normal 3.3-5.1 [facility] Comment on above: Result Comment: Hemo lysis present, Results??could be affected.?? Performed By: #### L 500.2500 ####[facility] [address] [place], [address] Sodium [Moles/Vol] 134 mmol/L Normal 133-145 [facility] Comment on above: Performed By: #### L 500.2500 ####[facility] [address] [place], [address] Urea nitrogen [Mass/Vol] 14 mg/dL Normal 4-19 [facility] Comment on above: Performed By: #### L 500.2500 ####[facility] [address] [place], [address] Bedside Glucoseon 03-18-2025 FINGERSTICK GLU 263 mg/dL High 74-106 [facility] Comment on above: Result Comment: EDGAR HUNG OF PATIENT CARE PER NURSING PROTOCOL Performed By: #### L 501.080 ####[facility] [address] [place], [address] FINGERSTICK GLU 134 mg/dL High 74-106 [facility] Comment on above: Result Comment: EDGAR GEMENT OF PATIENT CARE PER NURSING PROTOCOL Performed By: #### L 501.080 ####[facility] [address] [place], [address] FINGERSTICK GLU 139 mg/dL High 74-106 [facility] Comment on above: Result Comment: EDGAR GEMENT OF PATIENT CARE PER NURSING PROTOCOL Performed By: #### L 501.080 ####[facility] [address] [place], [address] FINGERSTICK GLU 156 mg/dL High 74-106 [facility] Comment on above: Result Comment: EDGAR GEMENT OF PATIENT CARE PER NURSING PROTOCOL Performed By: #### L 501.080 ####[facility] [address] [place], [address] FINGERSTICK GLU 177 mg/dL High [facility] Comment on above: Result Comment: EDGAR GEMENT OF PATIENT CARE PER NURSING PROTOCOL Performed By: #### L 501.080 ####[facility] [address] [place], [address] FINGERSTICK GLU 167 mg/dL High [facility] Comment on above: Result Comment: EDGAR GEMENT OF PATIENT CARE PER NURSING PROTOCOL Performed By: #### L 501.080 ####[facility] [address] [place], [address] FINGERSTICK GLU 171 mg/dL High [address] [place] [address] Comment on above: Result Comment: EDGAR GEMENT OF PATIENT CARE PER NURSING PROTOCOL Performed By: #### L 501.080 ####[facility] [address] [place], [address] FINGERSTICK GLU 176 mg/dL High [facility] Comment on above: Result Comment: EDGAR GEMENT OF PATIENT CARE PER NURSING PROTOCOL Performed By: #### L 501.080 ####[facility] [address] [place], [address] FINGERSTICK GLU 192 mg/dL High 74-106 [facility] Comment on above: Result Comment: EDGAR GEMENT OF PATIENT CARE PER NURSING PROTOCOL Performed By: #### L 501.080 ####[facility] [address] [place], [address] FINGERSTICK GLU 200 mg/dL High 74-106 [facility] Comment on above: Result Comment: EDGAR GEMENT OF PATIENT CARE PER NURSING PROTOCOL Performed By: #### L 501.080 ####[facility] [address] [place], [address] FINGERSTICK GLU 204 mg/dL High -106 [facility] Comment on above: Result Comment: EDGAR GEMENT OF PATIENT CARE PER NURSING PROTOCOL Performed By: #### L 501.080 ####[facility] [address] [place], [address] FINGERSTICK GLU 229 mg/dL High [facility] Comment on above: Result Comment: EDGAR GEMENT OF PATIENT CARE PER NURSING PROTOCOL Performed By: #### L 501.080 ####[facility] [address] [place], [address] FINGERSTICK GLU 218 mg/dL High [facility] Comment on above: Result Comment: EDGAR GEMENT OF PATIENT CARE PER NURSING PROTOCOL Performed By: #### L 501.080 ####[facility] [address] [place], [address] FINGERSTICK GLU 241 mg/dL High 74-106 [facility] Comment on above: Result Comment: EDGAR GEMENT OF PATIENT CARE PER NURSING PROTOCOL Performed By: #### L 501.080 ####[facility] [address] [place], [address] FINGERSTICK GLU 203 mg/dL High -106 [facility] Comment on above: Result Comment: EDGAR GEMENT OF PATIENT CARE PER NURSING PROTOCOL Performed By: #### L 501.080 ####[facility] [address] [place], [address] FINGERSTICK GLU 182 mg/dL High 74-106 [facility] Comment on above: Result Comment: EDGAR GEMENT OF PATIENT CARE PER NURSING PROTOCOL Performed By: #### L 501.080 ####[facility] [address] [place], [address] FINGERSTICK GLU 199 mg/dL High 74-106 [facility] Comment on above: Result Comment: EDGAR GEMENT OF PATIENT CARE PER NURSING PROTOCOL Performed By: #### L 501.080 ####[facility] [address] [place], [address] FINGERSTICK GLU 201 mg/dL High 74-106 [facility] Comment on above: Result Comment: EDGAR GEMENT OF PATIENT CARE PER NURSING PROTOCOL Performed By: #### L 501.080 ####[facility] [address] [place], [address] Consultation - Intensiviston 03-18-2025 Consultation - Wax Molder Normal [facility] Bedside Glucoseon 03-17-2025 FINGERSTICK GLU 272 mg/dL High [address] [place] [address] Comment on above: Result Comment: EDGAR GEMENT OF PATIENT CARE PER NURSING PROTOCOL Performed By: #### L 501.080 ####[facility] [address] [place], [address] Beta-Hydroxbytyrateon 2024 BETA-HYDROXYBUT 9.3 mmol/L High 0.0-0.3 [facility] Comment on above: Performed By: #### L 501.6901 ####[facility] [address] [place], [address] Chest 1 View (Portable)on Chest 1 View (Portable) Normal [facility] Comprehensive Metabolic Prof ilon 03-17-2025 Albumin [Mass/Vol] 5.0 g/dL Normal 3.5-5.0 [facility] Comment on above: Performed By: #### L 100.0100, L500.4050, L501.2450, L700.6800 ####[facility] [address] [place], [address] Albumin/Globulin [Mass ratio] 1.9 {ratio} Normal 0.9-2.4 [facility] Comment on above: Performed By: #### L 100.0100, L500.4050, L501.2450, L700.6800 ####[facility] [address] [place], [address] ALK PHOS 123 U/L High 35-104 [facility] Comment on above: Performed By: #### L 100.0100, L500.4050, L501.2450, L700.6800 ####[facility] [address] [place], [address] ALT [Catalytic activity/Vol] 18 U/L Normal <=34 [facility] Comment on above: Performed By: #### L 100.0100, L500.4050, L501.2450, L700.6800 ####[facility] [address] [place], [address] AST [Catalytic activity/Vol] 18 U/L Normal <=31 [facility] Comment on above: Performed By: #### L 100.0100, L500.4050, L501.2450, L700.6800 ####[facility] [address] [place], [address] Bilirubin [Mass/Vol] 0.74 mg/dL Normal 0.00-1.30 [facility] Comment on above: Performed By: #### L 100.0100, L500.4050, L501.2450, L700.6800 ####[facility] [address] [place], [address] BUN/CRE 14.1 RATIO Normal 10-20 [facility] Comment on above: Performed By: #### L 100.0100, L500.4050, L501.2450, L700.6800 ####[facility] [address] [place], [address] Calcium [Mass/Vol] 9.7 mg/dL Normal 7.6-11.0 [facility] Comment on above: Performed By: #### L 100.0100, L500.4050, L501.2450, L700.6800 ####[facility] [address] [place], [address] Chloride [Moles/Vol] 84 mmol/L Low 98-108 [facility] Comment on above: Performed By: #### L 100.0100, L500.4050, L501.2450, L700.6800 ####[facility] [address] [place], [address] CO2 [Moles/Vol] 6.0 mmol/L Invalid Interpretation Code 21.0-32.0 [facility] Comment on above: Result Comment: Crit ical Result(s) Called at: 2137 by:??JULIÁN CHANDLER. Results read back by same. Performed By: #### L 100.0100, L500.4050, L501.2450, L700.6800 ####[facility] [address] [place], [address] Creatinine [Mass/Vol] 1.18 mg/dL Normal 0.70-1.20 [facility] Comment on above: Performed By: #### L 100.0100, L500.4050, L501.2450, L700.6800 ####[facility] [address] [place], [address] ECRCL 72.85 ml/min Normal 50-250 [facility] Comment on above: Performed By: #### L 100.0100, L500.4050, L501.2450, L700.6800 ####[facility] [address] [place], [address] GAP 37 High 5-15 [facility] Comment on above: Performed By: #### L 100.0100, L500.4050, L501.2450, L700.6800 ####[facility] [address] [place], [address] GFR/1.73 sq M.predicted among non-blacks MDRD (S/P/Bld) [Vol rate/Area] 64 mL/min/{1.73_m2} Normal >60 [facility] Comment on above: Result Comment: mL/m in/1.73m2 CKD-EPI Creatinine Equation (2020) Performed By: #### L 100.0100, L500.4050, L501.2450, L700.6800 ####[facility] [address] [place], [address] Globulin (S) [Mass/Vol] 2.7 g/dL Normal 2.2-4.2 [facility] Comment on above: Performed By: #### L 100.0100, L500.4050, L501.2450, L700.6800 ####[facility] [address] [place], [address] Glucose [Mass/Vol] 561 mg/dL Invalid Interpretation Code 70-99 [facility] Comment on above: Result Comment: Crit ical Result(s) Called at: by:??Results read back bysame.Critical Result(s) Called at: 2137 by:??JULIÁN CHANDLER. Results read back by same. Performed By: #### L 100.0100, L500.4050, L501.2450, L700.6800 ####[facility] [address] [place], [address] Potassium [Moles/Vol] 5.4 mmol/L High 3.3-5.1 [facility] Comment on above: Performed By: #### L 100.0100, L500.4050, L501.2450, L700.6800 ####[facility] [address] [place], [address] Sodium [Moles/Vol] 128 mmol/L Low 133-145 [facility] Comment on above: Performed By: #### L 100.0100, L500.4050, L501.2450, L700.6800 ####[facility] [address] [place], [address] T PROT 7.6 g/dL Normal 5.9-8.4 [facility] Comment on above: Performed By: #### L 100.0100, L500.4050, L501.2450, L700.6800 ####[facility] [address] [place], [address] Urea nitrogen [Mass/Vol] 17 mg/dL Normal 4-19 [facility] Comment on above: Performed By: #### L 100.0100, L500.4050, L501.2450, L700.6800 ####[facility] [address] [place], [address] Emergency Department Summary on 03-17-2025 Emergency Department Summary Normal [facility] Lipaseon 03-17-2025 Lipase [Catalytic activity/Vol] 10 U/L Low 13-75 [facility] Comment on above: Result Comment: Sulma schmitz note:LIPASE revised reference range effective 22.New Lipase methodology. Expected to produce lower valuesthan the previous assay method.NEW Reference Range: 13 - 75 U/L Performed By: #### L 100.0100, L500.4050, L501.2450, L700.6800 ####[facility] [address] [place], [address] ,Serum,hCG Quali.on 03-17-2025 HCG, SERUM QUAL Negative [facility] Comment on above: Performed By: #### L 100.0100, L500.4050, L501.2450, L700.6800 ####[facility] [address] [place], [address] Venous Blood Gason 5 Blood Gas Type ISABELLE [facility] Comment on above: Performed By: #### L 9000.0810 ####[facility] [address] [place], [address] CO2 [Moles/Vol] 7 mmol/L Low 23-33 [facility] Comment on above: Performed By: #### L 9000.0810 ####[facility] [address] [place], [address] HCO3 (Bld) [Moles/Vol] 6 mmol/L Low 22-26 [facility] Comment on above: Performed By: #### L 9000.0810 ####[facility] [address] [place], [address] O2 Delivery Dev Room Air [facility] Comment on above: Performed By: #### L 9000.0810 ####[facility] [address] [place], [address] Read Back By Yes [facility] Comment on above: Performed By: #### L 9000.0810 ####[facility] [address] [place], [address] Results To [facility] Comment on above: Performed By: #### L 9000.0810 ####[facility] [address] [place], [address] SITE Not entered [place] [facility] Comment on above: Performed By: #### L 9000.0810 ####[facility] [address] [place], [address] Time Given 20:45:58 Normal [facility] Comment on above: Performed By: #### L 9000.0810 ####[facility] [address] [place], [address] VBG BE -23 mmol/L Low -1.0-3.5 [facility] Comment on above: Performed By: #### L 9000.0810 ####[facility] [address] [place], [address] VBG pCO2 17.3 mmHg Invalid Interpretation Code 41-51 [facility] Comment on above: Performed By: #### L 9000.0810 ####[facility] [address] [place], [address] VBG pH 7.15 Invalid Interpretation Code 7.32-7.42 [facility] Comment on above: Performed By: #### L 9000.0810 ####[facility] [address] [place], [address] VBG PO2 55 mmHg High 25-40 [facility] Comment on above: Performed By: #### L 9000.0810 ####[facility] [address] [place], [address] VBG SO2 80 High 50-70 [facility] Comment on above: Performed By: #### L 9000.0810 ####[facility] [address] [place], [address] Bedside Glucoseon 03-08-2025 FINGERSTICK GLU 252 mg/dL High 74-106 [facility] Comment on above: Result Comment: EDGAR HUNG OF PATIENT CARE PER NURSING PROTOCOL Performed By: #### L 501.080 ####[facility] [address] [place], [address] FINGERSTICK GLU 272 mg/dL High 74-106 [facility] Comment on above: Result Comment: EDGAR HUNG OF PATIENT CARE PER NURSING PROTOCOL Performed By: #### L 501.080 ####[facility] [address] [place], [address] Basic Metabolic Profile (BMP )on 03-07-2025 BUN Normal 4-19 [facility] Comment on above: Result Comment: Canc elled via OM: MD Ordered Performed By: #### L 500.2500 ####[facility] [address] [place], [address] BUN/CRE Normal 10-20 [facility] Comment on above: Result Comment: Canc elled via OM: MD Ordered Performed By: #### L 500.2500 ####[facility] [address] [place], [address] Calcium Normal 7.6-11.0 [facility] Comment on above: Result Comment: Canc elled via OM: MD Ordered Performed By: #### L 500.2500 ####[facility] [address] [place], [address] CL Normal 98-108 [facility] Comment on above: Result Comment: Canc elled via OM: MD Ordered Performed By: #### L 500.2500 ####[facility] [address] [place], [address] CO2 Normal 21.0-32.0 [facility] Comment on above: Result Comment: Canc elled via OM: MD Ordered Performed By: #### L 500.2500 ####[facility] [address] [place], [address] CREAT,SERUM Normal 0.70-1.20 [facility] Comment on above: Result Comment: Canc elled via OM: MD Ordered Performed By: #### L 500.2500 ####[facility] [address] [place], [address] eGFR Normal >60 [facility] Comment on above: Result Comment: Canc elled via OM: MD Ordered Performed By: #### L 500.2500 ####[facility] [address] [place], [address] GAP Normal 5-15 [facility] Comment on above: Result Comment: Canc elled via OM: MD Ordered Performed By: #### L 500.2500 ####[facility] [address] [place], [address] GLU Normal 70-99 [facility] Comment on above: Result Comment: Canc elled via OM: MD Ordered Performed By: #### L 500.2500 ####[facility] [address] [place], [address] Potassium Normal 3.3-5.1 [facility] Comment on above: Result Comment: Canc elled via OM: MD Ordered Performed By: #### L 500.2500 ####[facility] [address] [place], [address] Basic Metabolic Profile (BMP) Normal 133-145 [facility] Comment on above: Result Comment: Canc elled via OM: MD Ordered Performed By: #### L 500.2500 ####[facility] [address] [place], [address] BUN/CRE 8.1 RATIO Low 10-20 [facility] Comment on above: Performed By: #### L 500.2500 ####[facility] [address] [place], [address] Calcium [Mass/Vol] 8.0 mg/dL Normal 7.6-11.0 [facility] Comment on above: Performed By: #### L 500.2500 ####[facility] [address] [place], [address] Chloride [Moles/Vol] 110 mmol/L High 98-108 [facility] Comment on above: Performed By: #### L 500.2500 ####[facility] [address] [place], [address] CO2 [Moles/Vol] 21.4 mmol/L Normal 21.0-32.0 [facility] Comment on above: Performed By: #### L 500.2500 ####[facility] [address] [place], [address] Creatinine [Mass/Vol] 0.58 mg/dL Low 0.70-1.20 [facility] Comment on above: Performed By: #### L 500.2500 ####[facility] [address] [place], [address] ECRCL 148.22 ml/min Normal 50-250 [facility] Comment on above: Performed By: #### L 500.2500 ####[facility] [address] [place], [address] GAP 8 Normal 5-15 [facility] Comment on above: Performed By: #### L 500.2500 ####[facility] [address] [place], [address] GFR/1.73 sq M.predicted among non-blacks MDRD (S/P/Bld) [Vol rate/Area] 125 mL/min/{1.73_m2} Normal >60 [facility] Comment on above: Result Comment: mL/m in/1.73m2 CKD-EPI Creatinine Equation (2020) Performed By: #### L 500.2500 ####[facility] [address] [place], [address] Glucose [Mass/Vol] 113 mg/dL High 70-99 [facility] Comment on above: Performed By: #### L 500.2500 ####[facility] [address] [place], [address] Potassium [Moles/Vol] 3.2 mmol/L Low 3.3-5.1 [facility] Comment on above: Performed By: #### L 500.2500 ####[facility] [address] [place], [address] Sodium [Moles/Vol] 139 mmol/L Normal 133-145 [facility] Comment on above: Performed By: #### L 500.2500 ####[facility] [address] [place], [address] Urea nitrogen [Mass/Vol] 5 mg/dL Normal 4-19 [facility] Comment on above: Performed By: #### L 500.2500 ####[facility] [address] [place], [address] BUN/CRE 9.9 RATIO Low 10-20 [facility] Comment on above: Performed By: #### L 500.2500 ####[facility] [address] [place], [address] Calcium [Mass/Vol] 8.2 mg/dL Normal 7.6-11.0 [facility] Comment on above: Performed By: #### L 500.2500 ####[facility] [address] [place], [address] Chloride [Moles/Vol] 109 mmol/L High 98-108 [facility] Comment on above: Performed By: #### L 500.2500 ####[facility] [address] [place], [address] CO2 [Moles/Vol] 20.2 mmol/L Low 21.0-32.0 [facility] Comment on above: Performed By: #### L 500.2500 ####[facility] [address] [place], [address] Creatinine [Mass/Vol] 0.63 mg/dL Low 0.70-1.20 [facility] Comment on above: Performed By: #### L 500.2500 ####[facility] [address] [place], [address] ECRCL 136.46 ml/min Normal 50-250 [facility] Comment on above: Performed By: #### L 500.2500 ####[facility] [address] [place], [address] GAP 10 Normal 5-15 [facility] Comment on above: Performed By: #### L 500.2500 ####[facility] [address] [place], [address] GFR/1.73 sq M.predicted among non-blacks MDRD (S/P/Bld) [Vol rate/Area] 122 mL/min/{1.73_m2} Normal >60 [facility] Comment on above: Result Comment: mL/m in/1.73m2 CKD-EPI Creatinine Equation (2020) Performed By: #### L 500.2500 ####[facility] [address] [place], [address] Glucose [Mass/Vol] 136 mg/dL High 70-99 [facility] Comment on above: Performed By: #### L 500.2500 ####[facility] [address] [place], [address] Potassium [Moles/Vol] 3.3 mmol/L Normal 3.3-5.1 [facility] Comment on above: Performed By: #### L 500.2500 ####[facility] [address] [place], [address] Sodium [Moles/Vol] 139 mmol/L Normal 133-145 [facility] Comment on above: Performed By: #### L 500.2500 ####[facility] [address] [place], [address] Urea nitrogen [Mass/Vol] 6 mg/dL Normal 4-19 [facility] Comment on above: Performed By: #### L 500.2500 ####[facility] [address] [place], [address] Bedside Glucoseon 03-07-2025 FINGERSTICK GLU 282 mg/dL High 74-106 [facility] Comment on above: Result Comment: EDGAR GEMENT OF PATIENT CARE PER NURSING PROTOCOL Performed By: #### L 501.080 ####[facility] [address] [place], [address] FINGERSTICK GLU 262 mg/dL High 74-106 [facility] Comment on above: Result Comment: EDGAR GEMENT OF PATIENT CARE PER NURSING PROTOCOL Performed By: #### L 501.080 ####[facility] [address] [place], [address] FINGERSTICK GLU 354 mg/dL High 74-106 [facility] Comment on above: Result Comment: EDGAR GEMENT OF PATIENT CARE PER NURSING PROTOCOL Performed By: #### L 501.080 ####[facility] [address] [place], [address] FINGERSTICK GLU 169 mg/dL High 74-106 [facility] Comment on above: Result Comment: EDGAR GEMENT OF PATIENT CARE PER NURSING PROTOCOL Performed By: #### L 501.080 ####[facility] [address] [place], [address] FINGERSTICK GLU 163 mg/dL High 74-106 [facility] Comment on above: Result Comment: EDGAR GEMENT OF PATIENT CARE PER NURSING PROTOCOL Performed By: #### L 501.080 ####[facility] [address] [place], [address] FINGERSTICK GLU 106 mg/dL Normal 74-106 [facility] Comment on above: Result Comment: EDGAR GEMENT OF PATIENT CARE PER NURSING PROTOCOL Performed By: #### L 501.080 ####[facility] [address] [place], [address] FINGERSTICK GLU 88 mg/dL Normal 74-106 [facility] Comment on above: Result Comment: EDGAR GEMENT OF PATIENT CARE PER NURSING PROTOCOL Performed By: #### L 501.080 ####[facility] [address] [place], [address] FINGERSTICK GLU 94 mg/dL Normal 74-106 [facility] Comment on above: Result Comment: EDGAR GEMENT OF PATIENT CARE PER NURSING PROTOCOL Performed By: #### L 501.080 ####[facility] [address] [place], [address] FINGERSTICK GLU 129 mg/dL High 74-106 [facility] Comment on above: Result Comment: EDGAR GEMENT OF PATIENT CARE PER NURSING PROTOCOL Performed By: #### L 501.080 ####[facility] [address] [place], [address] FINGERSTICK GLU 119 mg/dL High 74-106 [facility] Comment on above: Result Comment: EDGAR GEMENT OF PATIENT CARE PER NURSING PROTOCOL Performed By: #### L 501.080 ####[facility] [address] [place], [address] Beta-Hydroxbytyrateon 2024 BETA-HYDROXYBUT 1.2 mmol/L High 0.0-0.3 [facility] Comment on above: Performed By: #### L 501.6901 ####[facility] [address] [place], [address] CBC-Complete Blood Cnt No Di ffon 03-07-2025 Erythrocyte distribution width (RBC) [Ratio] 13.8 % Normal 11.6-14.6 [facility] Comment on above: Performed By: #### L 100.0500 ####[facility] [address] [place], [address] Hematocrit (Bld) [Volume fraction] 33.3 % Low 37-47 [facility] Comment on above: Performed By: #### L 100.0500 ####[facility] [address] [place], [address] Hemoglobin (Bld) [Mass/Vol] 11.0 g/dL Low 12.0-15.0 [facility] Comment on above: Performed By: #### L 100.0500 ####[facility] [address] [place], [address] MCH (RBC) [Entitic mass] 29.6 pg Normal 27.0-32.0 [facility] Comment on above: Performed By: #### L 100.0500 ####[facility] [address] [place], [address] MCHC (RBC) [Mass/Vol] 33.0 g/dL Normal 32-36 [facility] Comment on above: Performed By: #### L 100.0500 ####[facility] [address] [place], [address] MCV (RBC) [Entitic vol] 89.8 fL Normal 81-99 [facility] Comment on above: Performed By: #### L 100.0500 ####[facility] [address] [place], [address] Platelet mean volume (Bld) [Entitic vol] 11.4 fL Normal 6.2-12.0 [facility] Comment on above: Performed By: #### L 100.0500 ####[facility] [address] [place], [address] Platelets (Bld) [#/Vol] 176 10*3/uL Normal 150-450 [facility] Comment on above: Performed By: #### L 100.0500 ####[facility] [address] [place], [address] RBC (Bld) [#/Vol] 3.71 10*6/uL Low 4.2-5.4 [facility] Comment on above: Performed By: #### L 100.0500 ####[facility] [address] [place], [address] RDW SD 45.2 fl High 35.1-43.9 [facility] Comment on above: Performed By: #### L 100.0500 ####[facility] [address] [place], [address] WBC (Bld) [#/Vol] 15.4 10*3/uL High 4.4-11.0 [facility] Comment on above: Performed By: #### L 100.0500 ####[facility] [address] [place], [address] Basic Metabolic Profile (BMP )on 03-06-2025 BUN/CRE 12.3 RATIO Normal 10-20 [facility] Comment on above: Order Comment: Call MD with results STAT Performed By: #### L 500.2500 ####[facility] [address] [place], [address] Calcium [Mass/Vol] 8.3 mg/dL Normal 7.6-11.0 [facility] Comment on above: Order Comment: Call MD with results STAT Performed By: #### L 500.2500 ####[facility] [address] [place], [address] Chloride [Moles/Vol] 107 mmol/L Normal 98-108 [facility] Comment on above: Order Comment: Call MD with results STAT Performed By: #### L 500.2500 ####[facility] [address] [place], [address] CO2 [Moles/Vol] 18.9 mmol/L Low 21.0-32.0 [facility] Comment on above: Order Comment: Call MD with results STAT Performed By: #### L 500.2500 ####[facility] [address] [place], [address] Creatinine [Mass/Vol] 0.68 mg/dL Low 0.70-1.20 [facility] Comment on above: Order Comment: Call MD with results STAT Performed By: #### L 500.2500 ####[facility] [address] [place], [address] ECRCL 126.42 ml/min Normal 50-250 [facility] Comment on above: Order Comment: Call MD with results STAT Performed By: #### L 500.2500 ####[facility] [address] [place], [address] GAP 12 Normal 5-15 [facility] Comment on above: Order Comment: Call MD with results STAT Performed By: #### L 500.2500 ####[facility] [address] [place], [address] GFR/1.73 sq M.predicted among non-blacks MDRD (S/P/Bld) [Vol rate/Area] 120 mL/min/{1.73_m2} Normal >60 [facility] Comment on above: Order Comment: Call MD with results STAT Result Comment: mL/m in/1.73m2 CKD-EPI Creatinine Equation (2020) Performed By: #### L 500.2500 ####[facility] [address] [place], [address] Glucose [Mass/Vol] 199 mg/dL High 70-99 [facility] Comment on above: Order Comment: Call MD with results STAT Performed By: #### L 500.2500 ####[facility] [address] [place], [address] Potassium [Moles/Vol] 3.6 mmol/L Normal 3.3-5.1 [facility] Comment on above: Order Comment: Call MD with results STAT Performed By: #### L 500.2500 ####[facility] [address] [place], [address] Sodium [Moles/Vol] 137 mmol/L Normal 133-145 [facility] Comment on above: Order Comment: Call MD with results STAT Performed By: #### L 500.2500 ####[facility] [address] [place], [address] Urea nitrogen [Mass/Vol] 8 mg/dL Normal 4-19 [facility] Comment on above: Order Comment: Call MD with results STAT Performed By: #### L 500.2500 ####[facility] [address] [place], [address] BUN/CRE 13.8 RATIO Normal 10-20 [facility] Comment on above: Order Comment: Call MD with results STAT Performed By: #### L 500.2500 ####[facility] [address] [place], [address] Calcium [Mass/Vol] 8.3 mg/dL Normal 7.6-11.0 [facility] Comment on above: Order Comment: Call MD with results STAT Performed By: #### L 500.2500 ####[facility] [address] [place], [address] Chloride [Moles/Vol] 105 mmol/L Normal 98-108 [facility] Comment on above: Order Comment: Call MD with results STAT Performed By: #### L 500.2500 ####[facility] [address] [place], [address] CO2 [Moles/Vol] 16.5 mmol/L Low 21.0-32.0 [facility] Comment on above: Order Comment: Call MD with results STAT Performed By: #### L 500.2500 ####[facility] [address] [place], [address] Creatinine [Mass/Vol] 0.70 mg/dL Normal 0.70-1.20 [facility] Comment on above: Order Comment: Call MD with results STAT Performed By: #### L 500.2500 ####[facility] [address] [place], [address] ECRCL 122.81 ml/min Normal 50-250 [facility] Comment on above: Order Comment: Call MD with results STAT Performed By: #### L 500.2500 ####[facility] [address] [place], [address] GAP 15 Normal 5-15 [facility] Comment on above: Order Comment: Call MD with results STAT Performed By: #### L 500.2500 ####[facility] [address] [place], [address] GFR/1.73 sq M.predicted among non-blacks MDRD (S/P/Bld) [Vol rate/Area] 119 mL/min/{1.73_m2} Normal >60 [facility] Comment on above: Order Comment: Call MD with results STAT Result Comment: mL/m in/1.73m2 CKD-EPI Creatinine Equation (2020) Performed By: #### L 500.2500 ####[facility] [address] [place], [address] Glucose [Mass/Vol] 239 mg/dL High 70-99 [facility] Comment on above: Order Comment: Call MD with results STAT Performed By: #### L 500.2500 ####[facility] [address] [place], [address] Potassium [Moles/Vol] 4.0 mmol/L Normal 3.3-5.1 [facility] Comment on above: Order Comment: Call MD with results STAT Performed By: #### L 500.2500 ####[facility] [address] [place], [address] Sodium [Moles/Vol] 136 mmol/L Normal 133-145 [facility] Comment on above: Order Comment: Call MD with results STAT Performed By: #### L 500.2500 ####[facility] [address] [place], [address] Urea nitrogen [Mass/Vol] 10 mg/dL Normal 4-19 [facility] Comment on above: Order Comment: Call MD with results STAT Performed By: #### L 500.2500 ####[facility] [address] [place], [address] BUN/CRE 15.9 RATIO Normal 10-20 [facility] Comment on above: Order Comment: Call MD with results STAT Performed By: #### L 500.2500 ####[facility] [address] [place], [address] Calcium [Mass/Vol] 8.3 mg/dL Normal 7.6-11.0 [facility] Comment on above: Order Comment: Call MD with results STAT Performed By: #### L 500.2500 ####[facility] [address] [place], [address] Chloride [Moles/Vol] 105 mmol/L Normal 98-108 [facility] Comment on above: Order Comment: Call MD with results STAT Performed By: #### L 500.2500 ####[facility] [address] [place], [address] CO2 [Moles/Vol] 13.0 mmol/L Low 21.0-32.0 [facility] Comment on above: Order Comment: Call MD with results STAT Performed By: #### L 500.2500 ####[facility] [address] [place], [address] Creatinine [Mass/Vol] 0.71 mg/dL Normal 0.70-1.20 [facility] Comment on above: Order Comment: Call MD with results STAT Performed By: #### L 500.2500 ####[facility] [address] [place], [address] ECRCL 121.08 ml/min Normal 50-250 [facility] Comment on above: Order Comment: Call MD with results STAT Performed By: #### L 500.2500 ####[facility] [address] [place], [address] GAP 18 High 5-15 [facility] Comment on above: Order Comment: Call MD with results STAT Performed By: #### L 500.2500 ####[facility] [address] [place], [address] GFR/1.73 sq M.predicted among non-blacks MDRD (S/P/Bld) [Vol rate/Area] 117 mL/min/{1.73_m2} Normal >60 [facility] Comment on above: Order Comment: Call MD with results STAT Result Comment: mL/m in/1.73m2 CKD-EPI Creatinine Equation (2020) Performed By: #### L 500.2500 ####[facility] [address] [place], [address] Glucose [Mass/Vol] 220 mg/dL High 70-99 [facility] Comment on above: Order Comment: Call MD with results STAT Performed By: #### L 500.2500 ####[facility] [address] [place], [address] Potassium [Moles/Vol] 4.3 mmol/L Normal 3.3-5.1 [facility] Comment on above: Order Comment: Call MD with results STAT Result Comment: Hemo lysis present, Results??could be affected.?? Performed By: #### L 500.2500 ####[facility] [address] [place], [address] Sodium [Moles/Vol] 136 mmol/L Normal 133-145 [facility] Comment on above: Order Comment: Call MD with results STAT Performed By: #### L 500.2500 ####[facility] [address] [place], [address] Urea nitrogen [Mass/Vol] 11 mg/dL Normal 4-19 [facility] Comment on above: Order Comment: Call MD with results STAT Performed By: #### L 500.2500 ####[facility] [address] [place], [address] BUN/CRE 17.5 RATIO Normal 10-20 [facility] Comment on above: Order Comment: Call MD with results STAT Performed By: #### L 500.2500 ####[facility] [address] [place], [address] Calcium [Mass/Vol] 8.8 mg/dL Normal 7.6-11.0 [facility] Comment on above: Order Comment: Call MD with results STAT Performed By: #### L 500.2500 ####[facility] [address] [place], [address] Chloride [Moles/Vol] 102 mmol/L Normal 98-108 [facility] Comment on above: Order Comment: Call MD with results STAT Performed By: #### L 500.2500 ####[facility] [address] [place], [address] CO2 [Moles/Vol] 11.6 mmol/L Low 21.0-32.0 [facility] Comment on above: Order Comment: Call MD with results STAT Performed By: #### L 500.2500 ####[facility] [address] [place], [address] Creatinine [Mass/Vol] 0.85 mg/dL Normal 0.70-1.20 [facility] Comment on above: Order Comment: Call MD with results STAT Performed By: #### L 500.2500 ####[facility] [address] [place], [address] ECRCL 101.14 ml/min Normal 50-250 [facility] Comment on above: Order Comment: Call MD with results STAT Performed By: #### L 500.2500 ####[facility] [address] [place], [address] GAP 22 High 5-15 [facility] Comment on above: Order Comment: Call MD with results STAT Performed By: #### L 500.2500 ####[facility] [address] [place], [address] GFR/1.73 sq M.predicted among non-blacks MDRD (S/P/Bld) [Vol rate/Area] 94 mL/min/{1.73_m2} Normal >60 [facility] Comment on above: Order Comment: Call MD with results STAT Result Comment: mL/m in/1.73m2 CKD-EPI Creatinine Equation (2020) Performed By: #### L 500.2500 ####[facility] [address] [place], [address] Glucose [Mass/Vol] 317 mg/dL High 70-99 [facility] Comment on above: Order Comment: Call MD with results STAT Performed By: #### L 500.2500 ####[facility] [address] [place], [address] Potassium [Moles/Vol] 4.6 mmol/L Normal 3.3-5.1 [facility] Comment on above: Order Comment: Call MD with results STAT Result Comment: Hemo lysis present, Results??could be affected.?? Performed By: #### L 500.2500 ####[facility] [address] [place], [address] Sodium [Moles/Vol] 136 mmol/L Normal 133-145 [facility] Comment on above: Order Comment: Call MD with results STAT Performed By: #### L 500.2500 ####[facility] [address] [place], [address] Urea nitrogen [Mass/Vol] 15 mg/dL Normal 4-19 [facility] Comment on above: Order Comment: Call MD with results STAT Performed By: #### L 500.2500 ####[facility] [address] [place], [address] BUN/CRE 18.2 RATIO Normal 10-20 [facility] Comment on above: Performed By: #### L 500.2500, L501.2450, L501.7300, L100.0100, L500.3400 ####[facility] [address] [place], [address] Calcium [Mass/Vol] 9.3 mg/dL Normal 7.6-11.0 [facility] Comment on above: Performed By: #### L 500.2500, L501.2450, L501.7300, L100.0100, L500.3400 ####[facility] [address] [place], [address] Chloride [Moles/Vol] 95 mmol/L Low 98-108 [facility] Comment on above: Performed By: #### L 500.2500, L501.2450, L501.7300, L100.0100, L500.3400 ####[facility] [address] [place], [address] CO2 [Moles/Vol] 11.4 mmol/L Low 21.0-32.0 [facility] Comment on above: Performed By: #### L 500.2500, L501.2450, L501.7300, L100.0100, L500.3400 ####[facility] [address] [place], [address] Creatinine [Mass/Vol] 0.87 mg/dL Normal 0.70-1.20 [facility] Comment on above: Performed By: #### L 500.2500, L501.2450, L501.7300, L100.0100, L500.3400 ####[facility] [address] [place], [address] ECRCL 98.81 ml/min Normal 50-250 [facility] Comment on above: Performed By: #### L 500.2500, L501.2450, L501.7300, L100.0100, L500.3400 ####[facility] [address] [place], [address] GAP 27 High 5-15 [facility] Comment on above: Performed By: #### L 500.2500, L501.2450, L501.7300, L100.0100, L500.3400 ####[facility] [address] [place], [address] GFR/1.73 sq M.predicted among non-blacks MDRD (S/P/Bld) [Vol rate/Area] 91 mL/min/{1.73_m2} Normal >60 [facility] Comment on above: Result Comment: mL/m in/1.73m2 CKD-EPI Creatinine Equation (2020) Performed By: #### L 500.2500, L501.2450, L501.7300, L100.0100, L500.3400 ####[facility] [address] [place], [address] Glucose [Mass/Vol] 547 mg/dL Invalid Interpretation Code 70-99 [facility] Comment on above: Result Comment: Crit ical Result(s) Called at 0240: by: SUZANNE AGUILERA??Results read back by same. Performed By: #### L 500.2500, L501.2450, L501.7300, L100.0100, L500.3400 ####[facility] [address] [place], [address] Potassium [Moles/Vol] 4.4 mmol/L Normal 3.3-5.1 [facility] Comment on above: Performed By: #### L 500.2500, L501.2450, L501.7300, L100.0100, L500.3400 ####[facility] [address] [place], [address] Sodium [Moles/Vol] 133 mmol/L Normal 133-145 [facility] Comment on above: Performed By: #### L 500.2500, L501.2450, L501.7300, L100.0100, L500.3400 ####[facility] [address] [place], [address] Urea nitrogen [Mass/Vol] 16 mg/dL Normal 4-19 [facility] Comment on above: Performed By: #### L 500.2500, L501.2450, L501.7300, L100.0100, L500.3400 ####[facility] [address] [place], [address] Bedside Glucoseon 03-06-2025 FINGERSTICK GLU 127 mg/dL High 74-106 [facility] Comment on above: Result Comment: EDGAR GEMENT OF PATIENT CARE PER NURSING PROTOCOL Performed By: #### L 501.080 ####[facility] [address] [place], [address] FINGERSTICK GLU 160 mg/dL High 74-106 [facility] Comment on above: Result Comment: EDGAR GEMENT OF PATIENT CARE PER NURSING PROTOCOL Performed By: #### L 501.080 ####[facility] [address] [place], [address] FINGERSTICK GLU 127 mg/dL High 74-106 [facility] Comment on above: Result Comment: EDGAR GEMENT OF PATIENT CARE PER NURSING PROTOCOL Performed By: #### L 501.080 ####[facility] [address] [place], [address] FINGERSTICK GLU 196 mg/dL High 74-106 [facility] Comment on above: Result Comment: EDGAR GEMENT OF PATIENT CARE PER NURSING PROTOCOL Performed By: #### L 501.080 ####[facility] [address] [place], [address] FINGERSTICK GLU 203 mg/dL High 74-106 [facility] Comment on above: Result Comment: Dr Ej foreman FollowedMANAGEMENT OF PATIENT CARE PER NURSING PROTOCOL Performed By: #### L 501.080 ####[facility] [address] [place], [address] FINGERSTICK GLU 231 mg/dL High 74-106 [facility] Comment on above: Result Comment: Dr Ej foreman FollowedMANAGEMENT OF PATIENT CARE PER NURSING PROTOCOL Performed By: #### L 501.080 ####[facility] [address] [place], [address] FINGERSTICK GLU 222 mg/dL High 74-106 [facility] Comment on above: Result Comment: EDGAR GEMENT OF PATIENT CARE PER NURSING PROTOCOL Performed By: #### L 501.080 ####[facility] [address] [place], [address] FINGERSTICK GLU 214 mg/dL High 74-106 [facility] Comment on above: Result Comment: EDGAR GEMENT OF PATIENT CARE PER NURSING PROTOCOL Performed By: #### L 501.080 ####[facility] [address] [place], [address] FINGERSTICK GLU 214 mg/dL High 74-106 [facility] Comment on above: Result Comment: EDGAR GEMENT OF PATIENT CARE PER NURSING PROTOCOL Performed By: #### L 501.080 ####[facility] [address] [place], [address] FINGERSTICK GLU 241 mg/dL High 74-106 [facility] Comment on above: Result Comment: EDGAR GEMENT OF PATIENT CARE PER NURSING PROTOCOL Performed By: #### L 501.080 ####[facility] [address] [place], [address] FINGERSTICK GLU 247 mg/dL High 74-106 [facility] Comment on above: Result Comment: Dr Ej foreman FollowedMANAGEMENT OF PATIENT CARE PER NURSING PROTOCOL Performed By: #### L 501.080 ####[facility] [address] [place], [address] FINGERSTICK GLU 217 mg/dL High [address] [place] [address] Comment on above: Result Comment: EDGAR GEMENT OF PATIENT CARE PER NURSING PROTOCOL Performed By: #### L 501.080 ####[facility] [address] [place], [address] FINGERSTICK GLU 253 mg/dL High -[address] [place] [address] Comment on above: Result Comment: EDGAR GEMENT OF PATIENT CARE PER NURSING PROTOCOL Performed By: #### L 501.080 ####[facility] [address] [place], [address] FINGERSTICK GLU 352 mg/dL High [address] [place] [address] Comment on above: Result Comment: EDGAR GEMENT OF PATIENT CARE PER NURSING PROTOCOL Performed By: #### L 501.080 ####[facility] [address] [place], [address] FINGERSTICK GLU 313 mg/dL High [address] [place] [address] Comment on above: Result Comment: EDGAR GEMENT OF PATIENT CARE PER NURSING PROTOCOL Performed By: #### L 501.080 ####[facility] [address] [place], [address] FINGERSTICK GLU 480 mg/dL Invalid Interpretation Code -[address] [place] [address] Comment on above: Result Comment: EDGAR GEMENT OF PATIENT CARE PER NURSING PROTOCOL Performed By: #### L 501.080 ####[facility] [address] [place], [address] Beta-Hydroxbytyrateon 2024 BETA-HYDROXYBUT 1.7 mmol/L High 0.0-0.3 [facility] Comment on above: Performed By: #### L 501.6901 ####[facility] [address] [place], [address] BETA-HYDROXYBUT 4.2 mmol/L High 0.0-0.3 [facility] Comment on above: Order Comment: FOR N IGHLTY MAINTENANCE, MOVED TO DIFFERENT REQ FOR THATREASON Performed By: #### L 501.6901 ####[facility] [address] [place], [address] CBC W/Diff, Automatedon 02-25 PLT MORPH CLUMPED Normal [facility] Comment on above: Performed By: #### L 100.0100 ####[facility] [address] [place], [address] RED CELL MORPH NORM C+C Normal NORM C C [facility] Comment on above: Performed By: #### L 100.0100 ####[facility] [address] [place], [address] PLT EST ADEQUATE Normal ADEQ [facility] Comment on above: Performed By: #### L 100.0100 ####[facility] [address] [place], [address] SMEAR COMMENT SCANNED Normal [facility] Comment on above: Performed By: #### L 100.0100 ####[facility] [address] [place], [address] Absolute Neut Normal 2.0-7.7 [facility] Comment on above: Result Comment: This specimen has been REJECTED due to Laboratory criteria:Clotted.GENO has been notified of need of recollection.03/06/25 014 [place] Performed By: #### L 500.2500, L501.2450, L501.7300, L100.0100, L500.3400 ####[facility] [address] [place], [address] HCT Normal 37-47 [facility] Comment on above: Result Comment: This specimen has been REJECTED due to Laboratory criteria:Clotted.GENO has been notified of need of recollection.[address] [place] Performed By: #### L 500.2500, L501.2450, L501.7300, L100.0100, L500.3400 ####[facility] [address] [place], [address] HGB Normal 12.0-15.0 [facility] Comment on above: Result Comment: This specimen has been REJECTED due to Laboratory criteria:Clotted.GENO has been notified of need of recollection.03/06/25143 [place] Performed By: #### L 500.2500, L501.2450, L501.7300, L100.0100, L500.3400 ####[facility] [address] [place], [address] MCH Normal 27.0-32.0 [facility] Comment on above: Result Comment: This specimen has been REJECTED due to Laboratory criteria:Clotted.GENO has been notified of need of recollection.03/06/25143 [place] Performed By: #### L 500.2500, L501.2450, L501.7300, L100.0100, L500.3400 ####[facility] [address] [place], [address] MCHC Normal 32-36 [facility] Comment on above: Result Comment: This specimen has been REJECTED due to Laboratory criteria:Clotted.GENO has been notified of need of recollection.03/06/25143 [place] Performed By: #### L 500.2500, L501.2450, L501.7300, L100.0100, L500.3400 ####[facility] [address] [place], [address] MCV Normal 81-99 [facility] Comment on above: Result Comment: This specimen has been REJECTED due to Laboratory criteria:Clotted.GENO has been notified of need of recollection.03/06/25143 [place] Performed By: #### L 500.2500, L501.2450, L501.7300, L100.0100, L500.3400 ####[facility] [address] [place], [address] NEUT% Normal 47-70 [facility] Comment on above: Result Comment: This specimen has been REJECTED due to Laboratory criteria:Clotted.GENO has been notified of need of recollection.03/06/25143 [place] Performed By: #### L 500.2500, L501.2450, L501.7300, L100.0100, L500.3400 ####[facility] [address] [place], [address] PLT Normal 150-450 [facility] Comment on above: Result Comment: This specimen has been REJECTED due to Laboratory criteria:Clotted.GENO has been notified of need of recollection.03/06/25143 [place] Performed By: #### L 500.2500, L501.2450, L501.7300, L100.0100, L500.3400 ####[facility] [address] [place], [address] RBC Normal 4.2-5.4 [facility] Comment on above: Result Comment: This specimen has been REJECTED due to Laboratory criteria:Clotted.GENO has been notified of need of recollection.03/06/25143 [place] Performed By: #### L 500.2500, L501.2450, L501.7300, L100.0100, L500.3400 ####[facility] [address] [place], [address] RDW CV Normal 11.6-14.6 [facility] Comment on above: Result Comment: This specimen has been REJECTED due to Laboratory criteria:Clotted.GENO has been notified of need of recollection.03/06/25143 [place] Performed By: #### L 500.2500, L501.2450, L501.7300, L100.0100, L500.3400 ####[facility] [address] [place], [address] RDW SD Normal 35.1-43.9 [facility] Comment on above: Result Comment: This specimen has been REJECTED due to Laboratory criteria:Clotted.GENO has been notified of need of recollection.03/06/25143 [place] Performed By: #### L 500.2500, L501.2450, L501.7300, L100.0100, L500.3400 ####[facility] [address] [place], [address] WBC Normal 4.4-11.0 [facility] Comment on above: Result Comment: This specimen has been REJECTED due to Laboratory criteria:Clotted.GENO has been notified of need of recollection.03/06/25143 [place] Performed By: #### L 500.2500, L501.2450, L501.7300, L100.0100, L500.3400 ####[facility] [address] [place], [address] Chest PA and Lateralon 03-06 Chest PA and Lateral Normal [facility] Emergency Department Summary on 03-06-2025 Emergency Department Summary Normal [facility] H AND P Exam - Hospitaliston 03-06-2025 H&P Exam - Hospitalist Normal [facility] Lipaseon 03-06-2025 Lipase [Catalytic activity/Vol] 21 U/L Normal 13-75 [facility] Comment on above: Result Comment: Sulma schmitz note:LIPASE revised reference range effective 22.New Lipase methodology. Expected to produce lower valuesthan the previous assay method.NEW Reference Range: 13 - 75 U/L Performed By: #### L 500.2500, L501.2450, L501.7300, L100.0100, L500.3400 ####[facility] [address] [place], [address] Liver Profileon 03-06-2025 Albumin [Mass/Vol] 4.4 g/dL Normal 3.5-5.0 [facility] Comment on above: Performed By: #### L 500.2500, L501.2450, L501.7300, L100.0100, L500.3400 ####[facility] [address] [place], [address] ALK PHOS 85 U/L Normal 35-104 [facility] Comment on above: Performed By: #### L 500.2500, L501.2450, L501.7300, L100.0100, L500.3400 ####[facility] [address] [place], [address] ALT [Catalytic activity/Vol] 11 U/L Normal <=34 [facility] Comment on above: Performed By: #### L 500.2500, L501.2450, L501.7300, L100.0100, L500.3400 ####[facility] [address] [place], [address] AST [Catalytic activity/Vol] 17 U/L Normal <=31 [facility] Comment on above: Performed By: #### L 500.2500, L501.2450, L501.7300, L100.0100, L500.3400 ####[facility] [address] [place], [address] Bilirubin [Mass/Vol] 0.79 mg/dL Normal 0.00-1.30 [facility] Comment on above: Performed By: #### L 500.2500, L501.2450, L501.7300, L100.0100, L500.3400 ####[facility] [address] [place], [address] Bilirubin.direct [Mass/Vol] 0.35 mg/dL High 0.00-0.30 [facility] Comment on above: Performed By: #### L 500.2500, L501.2450, L501.7300, L100.0100, L500.3400 ####[facility] [address] [place], [address] Globulin (S) [Mass/Vol] 2.5 g/dL Normal 2.2-4.2 [facility] Comment on above: Performed By: #### L 500.2500, L501.2450, L501.7300, L100.0100, L500.3400 ####[facility] [address] [place], [address] T PROT 6.9 g/dL Normal 5.9-8.4 [facility] Comment on above: Performed By: #### L 500.2500, L501.2450, L501.7300, L100.0100, L500.3400 ####[facility] [address] [place], [address] Osmolality, Serumon 03-06-20 25 OSMOLALITY,SER 325 mOsm/KG High 275-295 [facility] Comment on above: Performed By: #### L 500.2500, L501.2450, L501.7300, L100.0100, L500.3400 ####[facility] [address] [place], [address] Venous Blood Gason 5 VBG pCO2 8.2 mmHg Invalid Interpretation Code 41-51 [facility] Comment on above: Performed By: #### L 9000.0810 ####[facility] [address] [place], [address] Bedside Glucoseon 5 FINGERSTICK GLU 91 mg/dL Normal 74-106 [facility] Comment on above: Result Comment: EDGAR HUNG OF PATIENT CARE PER NURSING PROTOCOL Performed By: #### L 501.080 ####[facility] [address] [place], [address] Colonoscopy Reporton 07-09-2 025 Colonoscopy Report Normal [facility] EGD Reporton 03-05-2025 EGD Report Normal [facility] Immunohistochemical Stainson 03-05-2025 Immunohistochemical Stains Normal [facility] Comment on above: Performed By: #### P IMHI ####[facility] [address] [place], [address] MR/POSTOP.ANEon 03-05-2025 MR/POSTOP.ANE Normal [facility] MR/WTREBVCF0ac 03-05-2025 MR/POSTOPAN2 Normal [facility] MR/PAT.ANEon 03-04-2025 MR/PAT.ANE Normal [facility] CBC W/Diff, Automatedon Absolute Lymph 2.23 X10 3/uL Normal 0.83-4.51 [facility] Comment on above: Performed By: #### L 500.4050, L501.5200, L100.0100 ####[facility] [address] [place], [address] Absolute Neut 9.6 X10 3/uL High 2.0-7.7 [facility] Comment on above: Performed By: #### L 500.4050, L501.5200, L100.0100 ####[facility] [address] [place], [address] Basophils/100 WBC (Bld) 0.4 % Normal 0-1 [facility] Comment on above: Performed By: #### L 500.4050, L501.5200, L100.0100 ####[facility] [address] [place], [address] Eosinophils/100 WBC (Bld) 2.7 % Normal 0-5 [facility] Comment on above: Performed By: #### L 500.4050, L501.5200, L100.0100 ####[facility] [address] [place], [address] Erythrocyte distribution width (RBC) [Ratio] 13.7 % Normal 11.6-14.6 [facility] Comment on above: Performed By: #### L 500.4050, L501.5200, L100.0100 ####[facility] [address] [place], [address] Hematocrit (Bld) [Volume fraction] 43.5 % Normal 37-47 [facility] Comment on above: Performed By: #### L 500.4050, L501.5200, L100.0100 ####[facility] [address] [place], [address] Hemoglobin (Bld) [Mass/Vol] 14.2 g/dL Normal 12.0-15.0 [facility] Comment on above: Performed By: #### L 500.4050, L501.5200, L100.0100 ####[facility] [address] [place], [address] IG% 1.800 High 0.0-0.9 [facility] Comment on above: Result Comment: IG% - Immature Granulocytes (promyelocytes, myelocytes andmetamyelocytes) > 1% indicates that a LEFT SHIFT is Present. Performed By: #### L 500.4050, L501.5200, L100.0100 ####[facility] [address] [place], [address] Lymphocytes/100 WBC (Bld) 17.1 % Low 19-41 [facility] Comment on above: Performed By: #### L 500.4050, L501.5200, L100.0100 ####[facility] [address] [place], [address] MCH (RBC) [Entitic mass] 29.3 pg Normal 27.0-32.0 [facility] Comment on above: Performed By: #### L 500.4050, L501.5200, L100.0100 ####[facility] [address] [place], [address] MCHC (RBC) [Mass/Vol] 32.6 g/dL Normal 32-36 [facility] Comment on above: Performed By: #### L 500.4050, L501.5200, L100.0100 ####[facility] [address] [place], [address] MCV (RBC) [Entitic vol] 89.9 fL Normal 81-99 [facility] Comment on above: Performed By: #### L 500.4050, L501.5200, L100.0100 ####[facility] [address] [place], [address] Monocytes/100 WBC (Bld) 4.6 % Normal 0-10 [facility] Comment on above: Performed By: #### L 500.4050, L501.5200, L100.0100 ####[facility] [address] [place], [address] Neutrophils/100 WBC (Bld) 73.4 % High 47-70 [facility] Comment on above: Performed By: #### L 500.4050, L501.5200, L100.0100 ####[facility] [address] [place], [address] Nucleated RBC (Bld) [#/Vol] 0 10*3/uL Normal 0-5 [facility] Comment on above: Performed By: #### L 500.4050, L501.5200, L100.0100 ####[facility] [address] [place], [address] Platelet mean volume (Bld) [Entitic vol] 12.2 fL High 6.2-12.0 [facility] Comment on above: Performed By: #### L 500.4050, L501.5200, L100.0100 ####[facility] [address] [place], [address] Platelets (Bld) [#/Vol] 201 10*3/uL Normal 150-450 [facility] Comment on above: Performed By: #### L 500.4050, L501.5200, L100.0100 ####[facility] [address] [place], [address] RBC (Bld) [#/Vol] 4.84 10*6/uL Normal 4.2-5.4 [facility] Comment on above: Performed By: #### L 500.4050, L501.5200, L100.0100 ####[facility] [address] [place], [address] RDW SD 44.5 fl High 35.1-43.9 [facility] Comment on above: Performed By: #### L 500.4050, L501.5200, L100.0100 ####[facility] [address] [place], [address] WBC (Bld) [#/Vol] 13.1 10*3/uL High 4.4-11.0 [facility] Comment on above: Performed By: #### L 500.4050, L501.5200, L100.0100 ####[facility] [address] [place], [address] Comprehensive Metabolic Prof moon 02-25-2025 Albumin [Mass/Vol] 4.2 g/dL Normal 3.5-5.0 [facility] Comment on above: Performed By: #### L 500.4050, L501.5200, L100.0100 ####[facility] [address] [place], [address] Albumin/Globulin [Mass ratio] 1.6 {ratio} Normal 0.9-2.4 [facility] Comment on above: Performed By: #### L 500.4050, L501.5200, L100.0100 ####[facility] [address] [place], [address] ALK PHOS 77 U/L Normal 35-104 [facility] Comment on above: Performed By: #### L 500.4050, L501.5200, L100.0100 ####[facility] [address] [place], [address] ALT [Catalytic activity/Vol] 7 U/L Normal <=34 [facility] Comment on above: Performed By: #### L 500.4050, L501.5200, L100.0100 ####[facility] [address] [place], [address] AST [Catalytic activity/Vol] 15 U/L Normal <=31 [facility] Comment on above: Performed By: #### L 500.4050, L501.5200, L100.0100 ####[facility] [address] [place], [address] Bilirubin [Mass/Vol] 0.71 mg/dL Normal 0.00-1.30 [facility] Comment on above: Performed By: #### L 500.4050, L501.5200, L100.0100 ####[facility] [address] [place], [address] BUN/CRE 18.7 RATIO Normal 10-20 [facility] Comment on above: Performed By: #### L 500.4050, L501.5200, L100.0100 ####[facility] [address] [place], [address] Calcium [Mass/Vol] 9.2 mg/dL Normal 7.6-11.0 [facility] Comment on above: Performed By: #### L 500.4050, L501.5200, L100.0100 ####[facility] [address] [place], [address] Chloride [Moles/Vol] 104 mmol/L Normal 98-108 [facility] Comment on above: Performed By: #### L 500.4050, L501.5200, L100.0100 ####[facility] [address] [place], [address] CO2 [Moles/Vol] 20.2 mmol/L Low 21.0-32.0 [facility] Comment on above: Performed By: #### L 500.4050, L501.5200, L100.0100 ####[facility] [address] [place], [address] Creatinine [Mass/Vol] 0.63 mg/dL Low 0.70-1.20 [facility] Comment on above: Performed By: #### L 500.4050, L501.5200, L100.0100 ####[facility] [address] [place], [address] GAP 14 Normal 5-15 [facility] Comment on above: Performed By: #### L 500.4050, L501.5200, L100.0100 ####[facility] [address] [place], [address] GFR/1.73 sq M.predicted among non-blacks MDRD (S/P/Bld) [Vol rate/Area] 122 mL/min/{1.73_m2} Normal >60 [facility] Comment on above: Result Comment: mL/m in/1.73m2 CKD-EPI Creatinine Equation (2020) Performed By: #### L 500.4050, L501.5200, L100.0100 ####[facility] [address] [place], [address] Globulin (S) [Mass/Vol] 2.6 g/dL Normal 2.2-4.2 [facility] Comment on above: Performed By: #### L 500.4050, L501.5200, L100.0100 ####[facility] [address] [place], [address] Glucose [Mass/Vol] 153 mg/dL High 70-99 [facility] Comment on above: Performed By: #### L 500.4050, L501.5200, L100.0100 ####[facility] [address] [place], [address] Potassium [Moles/Vol] 3.9 mmol/L Normal 3.3-5.1 [facility] Comment on above: Performed By: #### L 500.4050, L501.5200, L100.0100 ####[facility] [address] [place], [address] Sodium [Moles/Vol] 138 mmol/L Normal 133-145 [facility] Comment on above: Performed By: #### L 500.4050, L501.5200, L100.0100 ####[facility] [address] [place], [address] T PROT 6.7 g/dL Normal 5.9-8.4 [facility] Comment on above: Performed By: #### L 500.4050, L501.5200, L100.0100 ####[facility] [address] [place], [address] Urea nitrogen [Mass/Vol] 12 mg/dL Normal 4-19 [facility] Comment on above: Performed By: #### L 500.4050, L501.5200, L100.0100 ####[facility] [address] [place], [address] Magnesiumon 02-25-2025 Magnesium [Mass/Vol] 2.2 mg/dL Normal 1.5-2.2 [facility] Comment on above: Performed By: #### L 500.4050, L501.5200, L100.0100 ####[facility] [address] [place], [address] Discharge Instructionon 01-27 Discharge Instruction Normal [facility] Basic Metabolic Profile (BMP )on 02-20-2025 BUN Normal 4-19 [facility] Comment on above: Result Comment: Canc elled via OM: Order cancelled - Patient discharged Performed By: #### L 100.0500, L500.2500 ####[facility] [address] [place], [address] BUN/CRE Normal 10-20 [facility] Comment on above: Result Comment: Canc elled via OM: Order cancelled - Patient discharged Performed By: #### L 100.0500, L500.2500 ####[facility] [address] [place], [address] Calcium Normal 7.6-11.0 [facility] Comment on above: Result Comment: Canc elled via OM: Order cancelled - Patient discharged Performed By: #### L 100.0500, L500.2500 ####[facility] [address] [place], [address] CL Normal 98-108 [facility] Comment on above: Result Comment: Canc elled via OM: Order cancelled - Patient discharged Performed By: #### L 100.0500, L500.2500 ####[facility] [address] [place], [address] CO2 Normal 21.0-32.0 [facility] Comment on above: Result Comment: Canc elled via OM: Order cancelled - Patient discharged Performed By: #### L 100.0500, L500.2500 ####[facility] [address] [place], [address] CREAT,SERUM Normal 0.70-1.20 [facility] Comment on above: Result Comment: Canc elled via OM: Order cancelled - Patient discharged Performed By: #### L 100.0500, L500.2500 ####[facility] [address] [place], [address] eGFR Normal >60 [facility] Comment on above: Result Comment: Canc elled via OM: Order cancelled - Patient discharged Performed By: #### L 100.0500, L500.2500 ####[facility] [address] [place], [address] GAP Normal 5-15 [facility] Comment on above: Result Comment: Canc elled via OM: Order cancelled - Patient discharged Performed By: #### L 100.0500, L500.2500 ####[facility] [address] [place], [address] GLU Normal 70-99 [facility] Comment on above: Result Comment: Canc elled via OM: Order cancelled - Patient discharged Performed By: #### L 100.0500, L500.2500 ####[facility] [address] [place], [address] Potassium Normal 3.3-5.1 [facility] Comment on above: Result Comment: Canc elled via OM: Order cancelled - Patient discharged Performed By: #### L 100.0500, L500.2500 ####[facility] [address] [place], [address] Basic Metabolic Profile (BMP) Normal 133-145 [facility] Comment on above: Result Comment: Canc elled via OM: Order cancelled - Patient discharged Performed By: #### L 100.0500, L500.2500 ####[facility] [address] [place], [address] Bedside Glucoseon 02-20-2025 FINGERSTICK GLU 143 mg/dL High 74-106 [facility] Comment on above: Result Comment: EDGAR HUNG OF PATIENT CARE PER NURSING PROTOCOL Performed By: #### L 501.080 ####[facility] [address] [place], [address] CBC-Complete Blood Cnt No Di ffon 02-20-2025 HCT Normal 37-47 [facility] Comment on above: Result Comment: Canc elled via OM: Order cancelled - Patient discharged Performed By: #### L 100.0500, L500.2500 ####[facility] [address] [place], [address] HGB Normal 12.0-15.0 [facility] Comment on above: Result Comment: Canc elled via OM: Order cancelled - Patient discharged Performed By: #### L 100.0500, L500.2500 ####[facility] [address] [place], [address] MCH Normal 27.0-32.0 [facility] Comment on above: Result Comment: Canc elled via OM: Order cancelled - Patient discharged Performed By: #### L 100.0500, L500.2500 ####[facility] [address] [place], [address] MCHC Normal 32-36 [facility] Comment on above: Result Comment: Canc elled via OM: Order cancelled - Patient discharged Performed By: #### L 100.0500, L500.2500 ####[facility] [address] [place], [address] MCV Normal 81-99 [facility] Comment on above: Result Comment: Canc elled via OM: Order cancelled - Patient discharged Performed By: #### L 100.0500, L500.2500 ####[facility] [address] [place], [address] PLT Normal 150-450 [facility] Comment on above: Result Comment: Canc elled via OM: Order cancelled - Patient discharged Performed By: #### L 100.0500, L500.2500 ####[facility] [address] [place], [address] RBC Normal 4.2-5.4 [facility] Comment on above: Result Comment: Canc elled via OM: Order cancelled - Patient discharged Performed By: #### L 100.0500, L500.2500 ####[facility] [address] [place], [address] RDW CV Normal 11.6-14.6 [facility] Comment on above: Result Comment: Canc elled via OM: Order cancelled - Patient discharged Performed By: #### L 100.0500, L500.2500 ####[facility] [address] [place], [address] RDW SD Normal 35.1-43.9 [facility] Comment on above: Result Comment: Canc elled via OM: Order cancelled - Patient discharged Performed By: #### L 100.0500, L500.2500 ####[facility] [address] [place], [address] WBC Normal 4.4-11.0 [facility] Comment on above: Result Comment: Canc elled via OM: Order cancelled - Patient discharged Performed By: #### L 100.0500, L500.2500 ####[facility] [address] [place], [address] Basic Metabolic Profile (BMP )on 02-19-2025 BUN Normal 4-19 [facility] Comment on above: Result Comment: Canc elled via OM: insulin off Performed By: #### L 500.2500 ####[facility] [address] [place], [address] Order Comment: Call MD with results STAT Result Comment: Canc elled via OM: MD Ordered Result Comment: OM C RUPALI REQUEST BUN/CRE Normal 10-20 [facility] Comment on above: Result Comment: Canc elled via OM: insulin off Performed By: #### L 500.2500 ####[facility] [address] [place], [address] Order Comment: Call MD with results STAT Result Comment: Canc elled via OM: MD Ordered Result Comment: OM C ANCEL REQUEST Calcium Normal 7.6-11.0 [facility] Comment on above: Result Comment: Canc elled via OM: insulin off Performed By: #### L 500.2500 ####[facility] [address] [place], [address] Order Comment: Call MD with results STAT Result Comment: Canc elled via OM: MD Ordered Result Comment: OM C ANCEL REQUEST CL Normal 98-108 [facility] Comment on above: Result Comment: Canc elled via OM: insulin off Performed By: #### L 500.2500 ####[facility] [address] [place], [address] Order Comment: Call MD with results STAT Result Comment: Canc elled via OM: MD Ordered Result Comment: OM C ANCEL REQUEST CO2 Normal 21.0-32.0 [facility] Comment on above: Result Comment: Canc elled via OM: insulin off Performed By: #### L 500.2500 ####[facility] [address] [place], [place], [address] Order Comment: Call MD with results STAT Result Comment: Canc elled via OM: MD Ordered Result Comment: OM C ANCEL REQUEST CREAT,SERUM Normal 0.70-1.20 [facility] Comment on above: Result Comment: Canc elled via OM: insulin off Performed By: #### L 500.2500 ####[facility] [address] [place], [address] Order Comment: Call MD with results STAT Result Comment: Canc elled via OM: MD Ordered Result Comment: OM C ANCEL REQUEST eGFR Normal >60 [facility] Comment on above: Result Comment: Canc elled via OM: insulin off Performed By: #### L 500.2500 ####[facility] [address] [place], [address] Order Comment: Call MD with results STAT Result Comment: Canc elled via OM: MD Ordered Result Comment: OM C ANCEL REQUEST GAP Normal 5-15 [facility] Comment on above: Result Comment: Canc elled via OM: insulin off Performed By: #### L 500.2500 ####[facility] [address] [place], [address] Order Comment: Call MD with results STAT Result Comment: Canc elled via OM: MD Ordered Result Comment: OM C ANCEL REQUEST GLU Normal 70-99 [facility] Comment on above: Result Comment: Canc elled via OM: insulin off Performed By: #### L 500.2500 ####[facility] [address] [place], [address] Order Comment: Call MD with results STAT Result Comment: Canc elled via OM: MD Ordered Result Comment: OM C ANCEL REQUEST Potassium Normal 3.3-5.1 [facility] Comment on above: Result Comment: Canc elled via OM: insulin off Performed By: #### L 500.2500 ####[facility] [address] [place], [address] Order Comment: Call MD with results STAT Result Comment: Canc elled via OM: MD Ordered Result Comment: OM C ANCEL REQUEST Basic Metabolic Profile (BMP) Normal 133-145 [facility] Comment on above: Result Comment: Canc elled via OM: insulin off Performed By: #### L 500.2500 ####[facility] [address] [place], [address] Order Comment: Call MD with results STAT Result Comment: Canc elled via OM: MD Ordered Result Comment: OM C ANCEL REQUEST BUN/CRE 8.8 RATIO Low 10-20 [facility] Comment on above: Performed By: #### L 500.2500 ####[facility] [address] [place], [address] Calcium [Mass/Vol] 8.5 mg/dL Normal 7.6-11.0 [facility] Comment on above: Performed By: #### L 500.2500 ####[facility] [address] [place], [address] Chloride [Moles/Vol] 107 mmol/L Normal 98-108 [facility] Comment on above: Performed By: #### L 500.2500 ####[facility] [address] [place], [address] CO2 [Moles/Vol] 18.6 mmol/L Low 21.0-32.0 [facility] Comment on above: Performed By: #### L 500.2500 ####[facility] [address] [place], [address] Creatinine [Mass/Vol] 0.63 mg/dL Low 0.70-1.20 [facility] Comment on above: Performed By: #### L 500.2500 ####[facility] [address] [place], [address] ECRCL 136.46 ml/min Normal 50-250 [facility] Comment on above: Performed By: #### L 500.2500 ####[facility] [address] [place], [address] GAP 13 Normal 5-15 [facility] Comment on above: Performed By: #### L 500.2500 ####[facility] [address] [place], [address] GFR/1.73 sq M.predicted among non-blacks MDRD (S/P/Bld) [Vol rate/Area] 122 mL/min/{1.73_m2} Normal >60 [facility] Comment on above: Result Comment: mL/m in/1.73m2 CKD-EPI Creatinine Equation (2020) Performed By: #### L 500.2500 ####[facility] [address] [place], [address] Glucose [Mass/Vol] 249 mg/dL High 70-99 [facility] Comment on above: Performed By: #### L 500.2500 ####[facility] [address] [place], [address] Potassium [Moles/Vol] 4.1 mmol/L Normal 3.3-5.1 [facility] Comment on above: Performed By: #### L 500.2500 ####[facility] [address] [place], [address] Sodium [Moles/Vol] 138 mmol/L Normal 133-145 [facility] Comment on above: Performed By: #### L 500.2500 ####[facility] [address] [place], [address] Urea nitrogen [Mass/Vol] 6 mg/dL Normal 4-19 [facility] Comment on above: Performed By: #### L 500.2500 ####[facility] [address] [place], [address] BUN/CRE 10.8 RATIO Normal 10-20 [facility] Comment on above: Performed By: #### L 501.5200, L100.0100, L500.2500 ####[facility] [address] [place], [address] Calcium [Mass/Vol] 8.0 mg/dL Normal 7.6-11.0 [facility] Comment on above: Performed By: #### L 501.5200, L100.0100, L500.2500 ####[facility] [address] [place], [address] Chloride [Moles/Vol] 112 mmol/L High 98-108 [facility] Comment on above: Performed By: #### L 501.5200, L100.0100, L500.2500 ####[facility] [address] [place], [address] CO2 [Moles/Vol] 17.1 mmol/L Low 21.0-32.0 [facility] Comment on above: Performed By: #### L 501.5200, L100.0100, L500.2500 ####[facility] [address] [place], [address] Creatinine [Mass/Vol] 0.57 mg/dL Low 0.70-1.20 [facility] Comment on above: Performed By: #### L 501.5200, L100.0100, L500.2500 ####[facility] [address] [place], [address] ECRCL 150.82 ml/min Normal 50-250 [facility] Comment on above: Performed By: #### L 501.5200, L100.0100, L500.2500 ####[facility] [address] [place], [address] GAP 10 Normal 5-15 [facility] Comment on above: Performed By: #### L 501.5200, L100.0100, L500.2500 ####[facility] [address] [place], [address] GFR/1.73 sq M.predicted among non-blacks MDRD (S/P/Bld) [Vol rate/Area] 126 mL/min/{1.73_m2} Normal >60 [facility] Comment on above: Result Comment: mL/m in/1.73m2 CKD-EPI Creatinine Equation (2020) Performed By: #### L 501.5200, L100.0100, L500.2500 ####[facility] [address] [place], [address] Glucose [Mass/Vol] 81 mg/dL Normal 70-99 [facility] Comment on above: Performed By: #### L 501.5200, L100.0100, L500.2500 ####[facility] [address] [place], [address] Potassium [Moles/Vol] 4.0 mmol/L Normal 3.3-5.1 [facility] Comment on above: Result Comment: Hemo lysis present, Results??could be affected.?? Performed By: #### L 501.5200, L100.0100, L500.2500 ####[facility] [address] [place], [address] Sodium [Moles/Vol] 139 mmol/L Normal 133-145 [facility] Comment on above: Performed By: #### L 501.5200, L100.0100, L500.2500 ####[facility] [address] [place], [address] Urea nitrogen [Mass/Vol] 6 mg/dL Normal 4-19 [facility] Comment on above: Performed By: #### L 501.5200, L100.0100, L500.2500 ####[facility] [address] [place], [address] BUN Normal 4-19 [facility] Comment on above: Order Comment: Call MD with results STAT Result Comment: OM C ANCEL REQUEST Performed By: #### L 500.2500 ####[facility] [address] [place], [address] BUN/CRE Normal 10-20 [facility] Comment on above: Order Comment: Call MD with results STAT Result Comment: OM C ANCEL REQUEST Performed By: #### L 500.2500 ####[facility] [address] [place], [address] Calcium Normal 7.6-11.0 [facility] Comment on above: Order Comment: Call MD with results STAT Result Comment: OM C ANCEL REQUEST Performed By: #### L 500.2500 ####[facility] [address] [place], [address] CL Normal 98-108 [facility] Comment on above: Order Comment: Call MD with results STAT Result Comment: OM C ANCEL REQUEST Performed By: #### L 500.2500 ####[facility] [address] [place], [address] CO2 Normal 21.0-32.0 [facility] Comment on above: Order Comment: Call MD with results STAT Result Comment: OM C ANCEL REQUEST Performed By: #### L 500.2500 ####[facility] [address] [place], [address] CREAT,SERUM Normal 0.70-1.20 [facility] Comment on above: Order Comment: Call MD with results STAT Result Comment: OM C ANCEL REQUEST Performed By: #### L 500.2500 ####[facility] [address] [place], [address] eGFR Normal >60 [facility] Comment on above: Order Comment: Call MD with results STAT Result Comment: OM C ANCEL REQUEST Performed By: #### L 500.2500 ####[facility] [address] [place], [address] GAP Normal 5-15 [facility] Comment on above: Order Comment: Call MD with results STAT Result Comment: OM C ANCEL REQUEST Performed By: #### L 500.2500 ####[facility] [address] [place], [address] GLU Normal 70-99 [facility] Comment on above: Order Comment: Call MD with results STAT Result Comment: OM C ANCEL REQUEST Performed By: #### L 500.2500 ####[facility] [address] [place], [address] Potassium Normal 3.3-5.1 [facility] Comment on above: Order Comment: Call MD with results STAT Result Comment: OM C ANCEL REQUEST Performed By: #### L 500.2500 ####[facility] [address] [place], [address] Basic Metabolic Profile (BMP) Normal 133-145 [facility] Comment on above: Order Comment: Call MD with results STAT Result Comment: OM C ANCEL REQUEST Performed By: #### L 500.2500 ####[facility] [address] [place], [address] BUN/CRE 13.3 RATIO Normal 10-20 [facility] Comment on above: Order Comment: Call MD with results STAT Performed By: #### L 500.2500 ####[facility] [address] [place], [address] Calcium [Mass/Vol] 8.1 mg/dL Normal 7.6-11.0 [facility] Comment on above: Order Comment: Call MD with results STAT Performed By: #### L 500.2500 ####[facility] [address] [place], [address] Chloride [Moles/Vol] 108 mmol/L Normal 98-108 [facility] Comment on above: Order Comment: Call MD with results STAT Performed By: #### L 500.2500 ####[facility] [address] [place], [address] CO2 [Moles/Vol] 17.8 mmol/L Low 21.0-32.0 [facility] Comment on above: Order Comment: Call MD with results STAT Performed By: #### L 500.2500 ####[facility] [address] [place], [address] Creatinine [Mass/Vol] 0.56 mg/dL Low 0.70-1.20 [facility] Comment on above: Order Comment: Call MD with results STAT Performed By: #### L 500.2500 ####[facility] [address] [place], [address] ECRCL 153.51 ml/min Normal 50-250 [facility] Comment on above: Order Comment: Call MD with results STAT Performed By: #### L 500.2500 ####[facility] [address] [place], [address] GAP 12 Normal 5-15 [facility] Comment on above: Order Comment: Call MD with results STAT Performed By: #### L 500.2500 ####[facility] [address] [place], [address] GFR/1.73 sq M.predicted among non-blacks MDRD (S/P/Bld) [Vol rate/Area] 126 mL/min/{1.73_m2} Normal >60 [facility] Comment on above: Order Comment: Call MD with results STAT Result Comment: mL/m in/1.73m2 CKD-EPI Creatinine Equation (2020) Performed By: #### L 500.2500 ####[facility] [address] [place], [address] Glucose [Mass/Vol] 126 mg/dL High 70-99 [facility] Comment on above: Order Comment: Call MD with results STAT Performed By: #### L 500.2500 ####[facility] [address] [place], [address] Potassium [Moles/Vol] 3.7 mmol/L Normal 3.3-5.1 [facility] Comment on above: Order Comment: Call MD with results STAT Performed By: #### L 500.2500 ####[facility] [address] [place], [address] Sodium [Moles/Vol] 137 mmol/L Normal 133-145 [facility] Comment on above: Order Comment: Call MD with results STAT Performed By: #### L 500.2500 ####[facility] [address] [place], [address] Urea nitrogen [Mass/Vol] 7 mg/dL Normal 4-19 [facility] Comment on above: Order Comment: Call MD with results STAT Performed By: #### L 500.2500 ####[facility] [address] [place], [address] Bedside Glucoseon 06-25-2025 FINGERSTICK GLU 141 mg/dL High 74-106 [facility] Comment on above: Result Comment: EDGAR GEMENT OF PATIENT CARE PER NURSING PROTOCOL Performed By: #### L 501.080 ####[facility] [address] [place], [address] FINGERSTICK GLU 222 mg/dL High 74-106 [facility] Comment on above: Result Comment: EDGAR GEMENT OF PATIENT CARE PER NURSING PROTOCOL Performed By: #### L 501.080 ####[facility] [address] [place], [address] FINGERSTICK GLU 242 mg/dL High 74-106 [facility] Comment on above: Result Comment: EDGAR GEMENT OF PATIENT CARE PER NURSING PROTOCOL Performed By: #### L 501.080 ####[facility] [address] [place], [address] FINGERSTICK GLU 146 mg/dL High 74-106 [facility] Comment on above: Result Comment: EDGAR GEMENT OF PATIENT CARE PER NURSING PROTOCOL Performed By: #### L 501.080 ####[facility] [address] [place], [address] FINGERSTICK GLU 59 mg/dL Low 74-106 [facility] Comment on above: Result Comment: EDGAR GEMENT OF PATIENT CARE PER NURSING PROTOCOL Performed By: #### L 501.080 ####[facility] [address] [place], [address] FINGERSTICK GLU 93 mg/dL Normal 74-106 [facility] Comment on above: Result Comment: EDGAR GEMENT OF PATIENT CARE PER NURSING PROTOCOL Performed By: #### L 501.080 ####[facility] [address] [place], [address] FINGERSTICK GLU 143 mg/dL High 74-106 [facility] Comment on above: Result Comment: EDGAR GEMENT OF PATIENT CARE PER NURSING PROTOCOL Performed By: #### L 501.080 ####[facility] [address] [place], [address] FINGERSTICK GLU 59 mg/dL Low 74-106 [facility] Comment on above: Result Comment: EDGAR GEMENT OF PATIENT CARE PER NURSING PROTOCOL Performed By: #### L 501.080 ####[facility] [address] [place], [address] FINGERSTICK GLU 76 mg/dL Normal 74-106 [facility] Comment on above: Result Comment: EDGAR GEMENT OF PATIENT CARE PER NURSING PROTOCOL Performed By: #### L 501.080 ####[facility] [address] [place], [address] FINGERSTICK GLU 89 mg/dL Normal 74-106 [facility] Comment on above: Result Comment: EDGAR GEMENT OF PATIENT CARE PER NURSING PROTOCOL Performed By: #### L 501.080 ####[facility] [address] [place], [address] FINGERSTICK GLU 118 mg/dL High 74-106 [facility] Comment on above: Result Comment: EDGAR GEMENT OF PATIENT CARE PER NURSING PROTOCOL Performed By: #### L 501.080 ####[facility] [address] [place], [address] FINGERSTICK GLU 111 mg/dL High 74-106 [facility] Comment on above: Result Comment: EDGAR GEMENT OF PATIENT CARE PER NURSING PROTOCOL Performed By: #### L 501.080 ####[facility] [address] [place], [address] FINGERSTICK GLU 123 mg/dL High 74-106 [facility] Comment on above: Result Comment: EDGAR GEMENT OF PATIENT CARE PER NURSING PROTOCOL Performed By: #### L 501.080 ####[facility] [address] [place], [address] CBC W/Diff, Automatedon 01-27 Absolute Lymph 1.08 X10 3/uL Normal 0.83-4.51 [facility] Comment on above: Performed By: #### L 501.5200, L100.0100, L500.2500 ####[facility] [address] [place], [address] Absolute Neut 18.3 X10 3/uL High 2.0-7.7 [facility] Comment on above: Performed By: #### L 501.5200, L100.0100, L500.2500 ####[facility] [address] [place], [address] Basophils/100 WBC (Bld) 0.2 % Normal 0-1 [facility] Comment on above: Performed By: #### L 501.5200, L100.0100, L500.2500 ####[facility] [address] [place], [address] Eosinophils/100 WBC (Bld) 0.0 % Normal 0-5 [facility] Comment on above: Performed By: #### L 501.5200, L100.0100, L500.2500 ####[facility] [address] [place], [address] Erythrocyte distribution width (RBC) [Ratio] 13.4 % Normal 11.6-14.6 [facility] Comment on above: Performed By: #### L 501.5200, L100.0100, L500.2500 ####[facility] [address] [place], [address] Hematocrit (Bld) [Volume fraction] 35.4 % Low 37-47 [facility] Comment on above: Performed By: #### L 501.5200, L100.0100, L500.2500 ####[facility] [address] [place], [address] Hemoglobin (Bld) [Mass/Vol] 11.8 g/dL Low 12.0-15.0 [facility] Comment on above: Performed By: #### L 501.5200, L100.0100, L500.2500 ####[facility] [address] [place], [address] IG% 1.000 High 0.0-0.9 [facility] Comment on above: Result Comment: IG% - Immature Granulocytes (promyelocytes, myelocytes andmetamyelocytes) > 1% indicates that a LEFT SHIFT is Present. Performed By: #### L 501.5200, L100.0100, L500.2500 ####[facility] [address] [place], [address] Lymphocytes/100 WBC (Bld) 5.3 % Low 19-41 [facility] Comment on above: Performed By: #### L 501.5200, L100.0100, L500.2500 ####[facility] [address] [place], [address] MCH (RBC) [Entitic mass] 29.7 pg Normal 27.0-32.0 [facility] Comment on above: Performed By: #### L 501.5200, L100.0100, L500.2500 ####[facility] [address] [place], [address] MCHC (RBC) [Mass/Vol] 33.3 g/dL Normal 32-36 [facility] Comment on above: Performed By: #### L 501.5200, L100.0100, L500.2500 ####[facility] [address] [place], [address] MCV (RBC) [Entitic vol] 89.2 fL Normal 81-99 [facility] Comment on above: Performed By: #### L 501.5200, L100.0100, L500.2500 ####[facility] [address] [place], [address] Monocytes/100 WBC (Bld) 4.1 % Normal 0-10 [facility] Comment on above: Performed By: #### L 501.5200, L100.0100, L500.2500 ####[facility] [address] [place], [address] Neutrophils/100 WBC (Bld) 89.4 % High 47-70 [facility] Comment on above: Performed By: #### L 501.5200, L100.0100, L500.2500 ####[facility] [address] [place], [address] Nucleated RBC (Bld) [#/Vol] 0 10*3/uL Normal 0-5 [facility] Comment on above: Performed By: #### L 501.5200, L100.0100, L500.2500 ####[facility] [address] [place], [address] Platelet mean volume (Bld) [Entitic vol] 11.5 fL Normal 6.2-12.0 [facility] Comment on above: Performed By: #### L 501.5200, L100.0100, L500.2500 ####[facility] [address] [place], [address] Platelets (Bld) [#/Vol] 188 10*3/uL Normal 150-450 [facility] Comment on above: Performed By: #### L 501.5200, L100.0100, L500.2500 ####[facility] [address] [place], [address] RBC (Bld) [#/Vol] 3.97 10*6/uL Low 4.2-5.4 [facility] Comment on above: Performed By: #### L 501.5200, L100.0100, L500.2500 ####[facility] [address] [place], [address] RDW SD 43.9 fl Normal 35.1-43.9 [facility] Comment on above: Performed By: #### L 501.5200, L100.0100, L500.2500 ####[facility] [address] [place], [address] WBC (Bld) [#/Vol] 20.5 10*3/uL High 4.4-11.0 [facility] Comment on above: Performed By: #### L 501.5200, L100.0100, L500.2500 ####[facility] [address] [place], [address] Magnesiumon 02-19-2025 Magnesium [Mass/Vol] 2.9 mg/dL High 1.5-2.2 [facility] Comment on above: Performed By: #### L 501.5200, L100.0100, L500.2500 ####[facility] [address] [place], [address] 12 Lead EKGon 02-18-2025 12 Lead EKG Normal [facility] Basic Metabolic Profile (BMP )on 02-18-2025 BUN/CRE 16.4 RATIO Normal 10-20 [facility] Comment on above: Order Comment: Call MD with results STAT Performed By: #### L 500.2500 ####[facility] [address] [place], [address] Calcium [Mass/Vol] 7.8 mg/dL Normal 7.6-11.0 [facility] Comment on above: Order Comment: Call MD with results STAT Performed By: #### L 500.2500 ####[facility] [address] [place], [address] Chloride [Moles/Vol] 107 mmol/L Normal 98-108 [facility] Comment on above: Order Comment: Call MD with results STAT Performed By: #### L 500.2500 ####[facility] [address] [place], [address] CO2 [Moles/Vol] 17.2 mmol/L Low 21.0-32.0 [facility] Comment on above: Order Comment: Call MD with results STAT Performed By: #### L 500.2500 ####[facility] [address] [place], [address] Creatinine [Mass/Vol] 0.57 mg/dL Low 0.70-1.20 [facility] Comment on above: Order Comment: Call MD with results STAT Performed By: #### L 500.2500 ####[facility] [address] [place], [address] ECRCL 150.82 ml/min Normal 50-250 [facility] Comment on above: Order Comment: Call MD with results STAT Performed By: #### L 500.2500 ####[facility] [address] [place], [address] GAP 12 Normal 5-15 [facility] Comment on above: Order Comment: Call MD with results STAT Performed By: #### L 500.2500 ####[facility] [address] [place], [address] GFR/1.73 sq M.predicted among non-blacks MDRD (S/P/Bld) [Vol rate/Area] 125 mL/min/{1.73_m2} Normal >60 [facility] Comment on above: Order Comment: Call MD with results STAT Result Comment: mL/m in/1.73m2 CKD-EPI Creatinine Equation (2020) Performed By: #### L 500.2500 ####[facility] [address] [place], [address] Glucose [Mass/Vol] 111 mg/dL High 70-99 [facility] Comment on above: Order Comment: Call MD with results STAT Performed By: #### L 500.2500 ####[facility] [address] [place], [address] Potassium [Moles/Vol] 3.9 mmol/L Normal 3.3-5.1 [facility] Comment on above: Order Comment: Call MD with results STAT Performed By: #### L 500.2500 ####[facility] [address] [place], [address] Sodium [Moles/Vol] 137 mmol/L Normal 133-145 [facility] Comment on above: Order Comment: Call MD with results STAT Performed By: #### L 500.2500 ####[facility] [address] [place], [address] Urea nitrogen [Mass/Vol] 9 mg/dL Normal 4-19 [facility] Comment on above: Order Comment: Call MD with results STAT Performed By: #### L 500.2500 ####[facility] [address] [place], [address] Bedside Glucoseon 02-18-2025 FINGERSTICK GLU 125 mg/dL High 74-106 [facility] Comment on above: Result Comment: EDGAR GEMENT OF PATIENT CARE PER NURSING PROTOCOL Performed By: #### L 501.080 ####[facility] [address] [place], [address] FINGERSTICK GLU 121 mg/dL High 74-106 [facility] Comment on above: Result Comment: EDGAR GEMENT OF PATIENT CARE PER NURSING PROTOCOL Performed By: #### L 501.080 ####[facility] [address] [place], [address] FINGERSTICK GLU 93 mg/dL Normal 74-106 [facility] Comment on above: Result Comment: EDGAR GEMENT OF PATIENT CARE PER NURSING PROTOCOL Performed By: #### L 501.080 ####[facility] [address] [place], [address] FINGERSTICK GLU 97 mg/dL Normal 74-106 [facility] Comment on above: Result Comment: EDGAR GEMENT OF PATIENT CARE PER NURSING PROTOCOL Performed By: #### L 501.080 ####[facility] [address] [place], [address] FINGERSTICK GLU 144 mg/dL High 74-106 [facility] Comment on above: Result Comment: EDGAR GEMENT OF PATIENT CARE PER NURSING PROTOCOL Performed By: #### L 501.080 ####[facility] [address] [place], [address] FINGERSTICK GLU 265 mg/dL High 74-106 [facility] Comment on above: Result Comment: EDGAR GEMENT OF PATIENT CARE PER NURSING PROTOCOL Performed By: #### L 501.080 ####[facility] [address] [place], [address] Beta-Hydroxbytyrateon 2024 BETA-HYDROXYBUT 2.2 mmol/L High 0.0-0.3 [facility] Comment on above: Performed By: #### L 501.6901 ####[facility] [address] [place], [address] CBC W/Diff, Automatedon 01-27 Absolute Lymph 0.88 X10 3/uL Normal 0.83-4.51 [facility] Comment on above: Performed By: #### L 700.6800, L100.0100, L500.4050, L501.5200, L501.2450 ####[facility] [address] [place], [address] Absolute Neut 17.1 X10 3/uL High 2.0-7.7 [facility] Comment on above: Performed By: #### L 700.6800, L100.0100, L500.4050, L501.5200, L501.2450 ####[facility] [address] [place], [address] Basophils/100 WBC (Bld) 0.5 % Normal 0-1 [facility] Comment on above: Performed By: #### L 700.6800, L100.0100, L500.4050, L501.5200, L501.2450 ####[facility] [address] [place], [address] Eosinophils/100 WBC (Bld) 0.0 % Normal 0-5 [facility] Comment on above: Performed By: #### L 700.6800, L100.0100, L500.4050, L501.5200, L501.2450 ####[facility] [address] [place], [address] Erythrocyte distribution width (RBC) [Ratio] 13.3 % Normal 11.6-14.6 [facility] Comment on above: Performed By: #### L 700.6800, L100.0100, L500.4050, L501.5200, L501.2450 ####[facility] [address] [place], [address] Hematocrit (Bld) [Volume fraction] 41.2 % Normal 37-47 [facility] Comment on above: Performed By: #### L 700.6800, L100.0100, L500.4050, L501.5200, L501.2450 ####[facility] [address] [place], [address] Hemoglobin (Bld) [Mass/Vol] 13.7 g/dL Normal 12.0-15.0 [facility] Comment on above: Performed By: #### L 700.6800, L100.0100, L500.4050, L501.5200, L501.2450 ####[facility] [address] [place], [address] IG% 1.600 High 0.0-0.9 [facility] Comment on above: Result Comment: IG% - Immature Granulocytes (promyelocytes, myelocytes andmetamyelocytes) > 1% indicates that a LEFT SHIFT is Present. Performed By: #### L 700.6800, L100.0100, L500.4050, L501.5200, L501.2450 ####[facility] [address] [place], [address] Lymphocytes/100 WBC (Bld) 4.7 % Low 19-41 [facility] Comment on above: Performed By: #### L 700.6800, L100.0100, L500.4050, L501.5200, L501.2450 ####[facility] [address] [place], [address] MCH (RBC) [Entitic mass] 29.3 pg Normal 27.0-32.0 [facility] Comment on above: Performed By: #### L 700.6800, L100.0100, L500.4050, L501.5200, L501.2450 ####[facility] [address] [place], [address] MCHC (RBC) [Mass/Vol] 33.3 g/dL Normal 32-36 [facility] Comment on above: Performed By: #### L 700.6800, L100.0100, L500.4050, L501.5200, L501.2450 ####[facility] [address] [place], [address] MCV (RBC) [Entitic vol] 88.0 fL Normal 81-99 [facility] Comment on above: Performed By: #### L 700.6800, L100.0100, L500.4050, L501.5200, L501.2450 ####[facility] [address] [place], [address] Monocytes/100 WBC (Bld) 2.3 % Normal 0-10 [facility] Comment on above: Performed By: #### L 700.6800, L100.0100, L500.4050, L501.5200, L501.2450 ####[facility] [address] [place], [address] Neutrophils/100 WBC (Bld) 90.9 % High 47-70 [facility] Comment on above: Performed By: #### L 700.6800, L100.0100, L500.4050, L501.5200, L501.2450 ####[facility] [address] [place], [address] Nucleated RBC (Bld) [#/Vol] 0 10*3/uL Normal 0-5 [facility] Comment on above: Performed By: #### L 700.6800, L100.0100, L500.4050, L501.5200, L501.2450 ####[facility] [address] [place], [address] Platelet mean volume (Bld) [Entitic vol] 11.8 fL Normal 6.2-12.0 [facility] Comment on above: Performed By: #### L 700.6800, L100.0100, L500.4050, L501.5200, L501.2450 ####[facility] [address] [place], [address] Platelets (Bld) [#/Vol] 226 10*3/uL Normal 150-450 [facility] Comment on above: Performed By: #### L 700.6800, L100.0100, L500.4050, L501.5200, L501.2450 ####[facility] [address] [place], [address] RBC (Bld) [#/Vol] 4.68 10*6/uL Normal 4.2-5.4 [facility] Comment on above: Performed By: #### L 700.6800, L100.0100, L500.4050, L501.5200, L501.2450 ####[facility] [address] [place], [address] RDW SD 42.8 fl Normal 35.1-43.9 [facility] Comment on above: Performed By: #### L 700.6800, L100.0100, L500.4050, L501.5200, L501.2450 ####[facility] [address] [place], [address] WBC (Bld) [#/Vol] 18.8 10*3/uL High 4.4-11.0 [facility] Comment on above: Performed By: #### L 700.6800, L100.0100, L500.4050, L501.5200, L501.2450 ####[facility] [address] [place], [address] Comprehensive Metabolic Prof moon 02-18-2025 Albumin [Mass/Vol] 4.3 g/dL Normal 3.5-5.0 [facility] Comment on above: Performed By: #### L 700.6800, L100.0100, L500.4050, L501.5200, L501.2450 ####[facility] [address] [place], [address] Albumin/Globulin [Mass ratio] 1.7 {ratio} Normal 0.9-2.4 [facility] Comment on above: Performed By: #### L 700.6800, L100.0100, L500.4050, L501.5200, L501.2450 ####[facility] [address] [place], [address] ALK PHOS 85 U/L Normal 35-104 [facility] Comment on above: Performed By: #### L 700.6800, L100.0100, L500.4050, L501.5200, L501.2450 ####[facility] [address] [place], [address] ALT [Catalytic activity/Vol] 11 U/L Normal <=34 [facility] Comment on above: Performed By: #### L 700.6800, L100.0100, L500.4050, L501.5200, L501.2450 ####[facility] [address] [place], [address] AST [Catalytic activity/Vol] 17 U/L Normal <=31 [facility] Comment on above: Performed By: #### L 700.6800, L100.0100, L500.4050, L501.5200, L501.2450 ####[facility] [address] [place], [address] Bilirubin [Mass/Vol] 0.79 mg/dL Normal 0.00-1.30 [facility] Comment on above: Performed By: #### L 700.6800, L100.0100, L500.4050, L501.5200, L501.2450 ####[facility] [address] [place], [address] BUN/CRE 15.1 RATIO Normal 10-20 [facility] Comment on above: Performed By: #### L 700.6800, L100.0100, L500.4050, L501.5200, L501.2450 ####[facility] [address] [place], [address] Calcium [Mass/Vol] 9.6 mg/dL Normal 7.6-11.0 [facility] Comment on above: Performed By: #### L 700.6800, L100.0100, L500.4050, L501.5200, L501.2450 ####[facility] [address] [place], [address] Chloride [Moles/Vol] 101 mmol/L Normal 98-108 [facility] Comment on above: Performed By: #### L 700.6800, L100.0100, L500.4050, L501.5200, L501.2450 ####[facility] [address] [place], [address] CO2 [Moles/Vol] 15.4 mmol/L Low 21.0-32.0 [facility] Comment on above: Performed By: #### L 700.6800, L100.0100, L500.4050, L501.5200, L501.2450 ####[facility] [address] [place], [address] Creatinine [Mass/Vol] 0.73 mg/dL Normal 0.70-1.20 [facility] Comment on above: Performed By: #### L 700.6800, L100.0100, L500.4050, L501.5200, L501.2450 ####[facility] [address] [place], [address] GAP 20 High 5-15 [facility] Comment on above: Performed By: #### L 700.6800, L100.0100, L500.4050, L501.5200, L501.2450 ####[facility] [address] [place], [address] GFR/1.73 sq M.predicted among non-blacks MDRD (S/P/Bld) [Vol rate/Area] 114 mL/min/{1.73_m2} Normal >60 [facility] Comment on above: Result Comment: mL/m in/1.73m2 CKD-EPI Creatinine Equation (2020) Performed By: #### L 700.6800, L100.0100, L500.4050, L501.5200, L501.2450 ####[facility] [address] [place], [address] Globulin (S) [Mass/Vol] 2.6 g/dL Normal 2.2-4.2 [facility] Comment on above: Performed By: #### L 700.6800, L100.0100, L500.4050, L501.5200, L501.2450 ####[facility] [address] [place], [address] Glucose [Mass/Vol] 324 mg/dL High 70-99 [facility] Comment on above: Performed By: #### L 700.6800, L100.0100, L500.4050, L501.5200, L501.2450 ####[facility] [address] [place], [address] Potassium [Moles/Vol] 4.2 mmol/L Normal 3.3-5.1 [facility] Comment on above: Performed By: #### L 700.6800, L100.0100, L500.4050, L501.5200, L501.2450 ####[facility] [address] [place], [address] Sodium [Moles/Vol] 136 mmol/L Normal 133-145 [facility] Comment on above: Performed By: #### L 700.6800, L100.0100, L500.4050, L501.5200, L501.2450 ####[facility] [address] [place], [address] T PROT 6.9 g/dL Normal 5.9-8.4 [facility] Comment on above: Performed By: #### L 700.6800, L100.0100, L500.4050, L501.5200, L501.2450 ####[facility] [address] [place], [address] Urea nitrogen [Mass/Vol] 11 mg/dL Normal 4-19 [facility] Comment on above: Performed By: #### L 700.6800, L100.0100, L500.4050, L501.5200, L501.2450 ####[facility] [address] [place], [address] Emergency Department Summary on 02-18-2025 Emergency Department Summary Normal [facility] H AND P Exam - Hospitaliston 02-18-2025 H&P Exam - Hospitalist Normal [facility] Lipaseon 02-18-2025 Lipase [Catalytic activity/Vol] 9 U/L Low 13-75 [facility] Comment on above: Result Comment: Sulma schmitz note:LIPASE revised reference range effective 22.New Lipase methodology. Expected to produce lower valuesthan the previous assay method.NEW Reference Range: 13 - 75 U/L Performed By: #### L 700.6800, L100.0100, L500.4050, L501.5200, L501.2450 ####[facility] [address] [place], [address] Magnesiumon 02-18-2025 Magnesium [Mass/Vol] 1.5 mg/dL Normal 1.5-2.2 [facility] Comment on above: Performed By: #### L 700.6800, L100.0100, L500.4050, L501.5200, L501.2450 ####[facility] [address] [place], [place], [phone] ,Serum,hCG Quali.on 02-18-2025 HCG, SERUM QUAL Negative Normal [facility] Comment on above: Performed By: #### L 700.6800, L100.0100, L500.4050, L501.5200, L501.2450 ####[facility] [address] [place], [address] Urinalysis, Completeon 02-18 RBC 0-5 SEEN Normal 0-5 [facility] Comment on above: Order Comment: CLEAN CATCH Performed By: #### L 400.0001 ####[facility] [address] [place], [address] WBC 0-5 SEEN Normal 0-5 [facility] Comment on above: Order Comment: CLEAN CATCH Performed By: #### L 400.0001 ####[facility] [address] [place], [address] EPI,SQUAMOUS 5-10 SEEN Normal 5-10 [facility] Comment on above: Order Comment: CLEAN CATCH Performed By: #### L 400.0001 ####[facility] [address] [place], [address] BACTERIA 0 SEEN Normal None Seen [facility] Comment on above: Order Comment: CLEAN CATCH Performed By: #### L 400.0001 ####[facility] [address] [place], [address] Mucus Ql (Urine sed) 0 SEEN Normal [facility] Comment on above: Order Comment: CLEAN CATCH Performed By: #### L 400.0001 ####[facility] [address] [place], [address] Venous Blood Gason 5 Blood Gas Type ISABELLE Normal [facility] Comment on above: Performed By: #### L 9000.0810 ####[facility] [address] [place], [address] CO2 [Moles/Vol] 22 mmol/L Low 23-33 [facility] Comment on above: Performed By: #### L 9000.0810 ####[facility] [address] [place], [address] HCO3 (Bld) [Moles/Vol] 22 mmol/L Normal 22-26 [facility] Comment on above: Performed By: #### L 9000.0810 ####[facility] [address] [place], [address] O2 Delivery Dev Not entered [facility] Comment on above: Performed By: #### L 9000.0810 ####[facility] [address] [place], [address] SITE Not entered [facility] Comment on above: Performed By: #### L 9000.0810 ####[facility] [address] [place], [address] VBG BE -1 mmol/L Normal -1.0-3.5 [facility] Comment on above: Performed By: #### L 9000.0810 ####[facility] [address] [place], [address] VBG pCO2 26.5 mmHg Low 41-51 [facility] Comment on above: Performed By: #### L 9000.0810 ####[facility] [address] [place], [address] VBG pH 7.52 High 7.32-7.42 [facility] Comment on above: Performed By: #### L 9000.0810 ####[facility] [address] [place], [address] VBG PO2 29 mmHg Normal 25-40 [facility] Comment on above: Performed By: #### L 9000.0810 ####[facility] [address] [place], [address] VBG SO2 64 Normal 50-70 [facility] Comment on above: Performed By: #### L 9000.0810 ####[facility] [address] [place], [address] Hepatitis A AB, Totalon 06- HEPATITIS A,TOT Positive Abnormal Negative [facility] Comment on above: Order Comment: KATHY CALDERON [...] HAVtotal antibody results to IgM (e.g., panel #[id number] HAVAntibody w/ Rfx).Performed at: [address] [id number] Director: Esteban Jin PhD, Phone: [phone] Performed By: #### L 3100.0460, L300.3900, L100.0100, L3890.6202, L501.9520, L500.2500, L3890.6301, L500.3400, L3410.9992, L3100.0300, L3890.6102, L501.9985 ####[facility] [address] [facility] [place], [address] Hepatitis B Core Ab Totalon 02-05-2025 HEP B CORE,TOT Negative Normal Negative [facility] Comment on above: Order Comment: KATHY CALDERON ORDERED BMP,LIVER,CBCD,PT/INR,TSH,HEBSAG,HECAB,HEAT,HEP B CORE, AND ELF.ANTONIA ORDERED CMP AND A1C Performed By: #### L 3100.0460, L300.3900, L100.0100, L3890.6202, L501.9520, L500.2500, L3890.6301, L500.3400, L3410.9992, L3100.0300, L3890.6102, L501.9985 ####[facility] [address] [place], [place], [address] L3410.9992on 02-05-2025 [facility] Normal . [facility] Comment on above: Order Comment: KATHY CALDERON ORDERED BMP,LIVER,CBCD,PT/INR,TSH,HEBSAG,HECAB,HEAT,HEP B CORE, AND ELF.ANTONIA ORDERED CMP AND [id number] Result Comment: Test Ordered: [id number] Enhanced Liver Fibrosis (ELF)ELF(TM) Score 8.11 BN [...] trials. J Hepatol. 2020 Feb;73(1):26-39.Performed at: [facility] [address] [id number] Director: Brian Rouse MD, Phone: [phone] at: [facility] [address] [id number] Director: Esteban Jin PhD, Phone: [phone] Performed By: #### L 3100.0460, L300.3900, L100.0100, L3890.6202, L501.9520, L500.2500, L3890.6301, L500.3400, L3410.9992, L3100.0300, L3890.6102, L501.9985 ####[facility] [address] [place], [place], [phone] Basic Metabolic Profile (BMP )on 02-03-2025 BUN/CRE 12.4 RATIO Normal 10-20 [facility] Comment on above: Order Comment: KATHY CALDERON ORDERED BMP,LIVER,CBCD,PT/INR,TSH,HEBSAG,HECAB,HEAT,HEP B CORE, AND ELF.ANTONIA ORDERED CMP AND A1C Performed By: #### L 3100.0460, L300.3900, L100.0100, L3890.6202, L501.9520, L500.2500, L3890.6301, L500.3400, L3410.9992, L3100.0300, L3890.6102, L501.9985 ####[facility] [address] [place], [place], [phone] Calcium [Mass/Vol] 9.7 mg/dL Normal 7.6-11.0 [facility] Comment on above: Order Comment: KATHY CALDERON ORDERED BMP,LIVER,CBCD,PT/INR,TSH,HEBSAG,HECAB,HEAT,HEP B CORE, AND ELF.ANTONIA ORDERED CMP AND A1C Performed By: #### L 3100.0460, L300.3900, L100.0100, L3890.6202, L501.9520, L500.2500, L3890.6301, L500.3400, L3410.9992, L3100.0300, L3890.6102, L501.9985 ####[facility] [address] [place], [place], [phone] Chloride [Moles/Vol] 96 mmol/L Low 98-108 [facility] Comment on above: Order Comment: KATHY CALDERON ORDERED BMP,LIVER,CBCD,PT/INR,TSH,HEBSAG,HECAB,HEAT,HEP B CORE, AND ELF.ANTONIA ORDERED CMP AND A1C Performed By: #### L 3100.0460, L300.3900, L100.0100, L3890.6202, L501.9520, L500.2500, L3890.6301, L500.3400, L3410.9992, L3100.0300, L3890.6102, L501.9985 ####[facility] [address] [place], [place], [phone] CO2 [Moles/Vol] 22.5 mmol/L Normal 21.0-32.0 [facility] Comment on above: Order Comment: KATHY CALDERON ORDERED BMP,LIVER,CBCD,PT/INR,TSH,HEBSAG,HECAB,HEAT,HEP B CORE, AND ELF.ANTONIA ORDERED CMP AND A1C Performed By: #### L 3100.0460, L300.3900, L100.0100, L3890.6202, L501.9520, L500.2500, L3890.6301, L500.3400, L3410.9992, L3100.0300, L3890.6102, L501.9985 ####[facility] [address] [place], [place], [phone] Creatinine [Mass/Vol] 0.78 mg/dL Normal 0.70-1.20 [facility] Comment on above: Order Comment: KATHY CALDERON ORDERED BMP,LIVER,CBCD,PT/INR,TSH,HEBSAG,HECAB,HEAT,HEP B CORE, AND ELF.ANTONIA ORDERED CMP AND A1C Performed By: #### L 3100.0460, L300.3900, L100.0100, L3890.6202, L501.9520, L500.2500, L3890.6301, L500.3400, L3410.9992, L3100.0300, L3890.6102, L501.9985 ####[facility] [address] [place], [place], [phone] GAP 15 Normal 5-15 [facility] Comment on above: Order Comment: KATHY CALDERON ORDERED BMP,LIVER,CBCD,PT/INR,TSH,HEBSAG,HECAB,HEAT,HEP B CORE, AND ELF.ANTONIA ORDERED CMP AND A1C Performed By: #### L 3100.0460, L300.3900, L100.0100, L3890.6202, L501.9520, L500.2500, L3890.6301, L500.3400, L3410.9992, L3100.0300, L3890.6102, L501.9985 ####[facility] [address] [place], [place], [address] GFR/1.73 sq M.predicted among non-blacks MDRD (S/P/Bld) [Vol rate/Area] 106 mL/min/{1.73_m2} Normal >60 [facility] Comment on above: Order Comment: KATHY CALDERON ORDERED BMP,LIVER,CBCD,PT/INR,TSH,HEBSAG,HECAB,HEAT,HEP B CORE, AND ELF.ANTONIA ORDERED CMP AND A1C Result Comment: mL/m in/1.73m2 CKD-EPI Creatinine Equation (2020) Performed By: #### L 3100.0460, L300.3900, L100.0100, L3890.6202, L501.9520, L500.2500, L3890.6301, L500.3400, L3410.9992, L3100.0300, L3890.6102, L501.9985 ####[facility] [address] [place], [address] Glucose [Mass/Vol] 459 mg/dL Invalid Interpretation Code 70-99 [facility] Comment on above: Order Comment: KATHY CALDERON ORDERED BMP,LIVER,CBCD,PT/INR,TSH,HEBSAG,HECAB,HEAT,HEP B CORE, AND ELF.ANTONIA ORDERED CMP AND A1C Result Comment: Crit ical Result(s) Called at: by:??Results read back bysame.LEFT VOICEMAIL @ 1811 Performed By: #### L 3100.0460, L300.3900, L100.0100, L3890.6202, L501.9520, L500.2500, L3890.6301, L500.3400, L3410.9992, L3100.0300, L3890.6102, L501.9985 ####[facility] [address] [place], [place], [phone] Potassium [Moles/Vol] 4.7 mmol/L Normal 3.3-5.1 [facility] Comment on above: Order Comment: KATHY CALDERON ORDERED BMP,LIVER,CBCD,PT/INR,TSH,HEBSAG,HECAB,HEAT,HEP B CORE, AND ELF.MANAGER OF EMPLOYEE RELATIONS.SAMANTHAHOWalter ORDERED CMP AND A1C Performed By: #### L 3100.0460, L300.3900, L100.0100, L3890.6202, L501.9520, L500.2500, L3890.6301, L500.3400, L3410.9992, L3100.0300, L3890.6102, L501.9985 ####[facility] [address] [place], [address] Sodium [Moles/Vol] 133 mmol/L Normal 133-145 [facility] Comment on above: Order Comment: KATHY CALDERON ORDERED BMP,LIVER,CBCD,PT/INR,TSH,HEBSAG,HECAB,HEAT,HEP B CORE, AND ELF.CHRIS.SAMANTHAHOWalter ORDERED CMP AND A1C Performed By: #### L 3100.0460, L300.3900, L100.0100, L3890.6202, L501.9520, L500.2500, L3890.6301, L500.3400, L3410.9992, L3100.0300, L3890.6102, L501.9985 ####[facility] [address] [place], [address] Urea nitrogen [Mass/Vol] 10 mg/dL Normal 4-19 [facility] Comment on above: Order Comment: KATHY CALDERON ORDERED BMP,LIVER,CBCD,PT/INR,TSH,HEBSAG,HECAB,HEAT,HEP B CORE, AND ELF.HILARYHOWalter ORDERED CMP AND A1C Performed By: #### L 3100.0460, L300.3900, L100.0100, L3890.6202, L501.9520, L500.2500, L3890.6301, L500.3400, L3410.9992, L3100.0300, L3890.6102, L501.9985 ####[facility] [address] [place], [address] CBC W/Diff, Automatedon 06-0 9-2024 Absolute Lymph 1.69 X10 3/uL Normal 0.83-4.51 [facility] Comment on above: Order Comment: KATHY CALDERON ORDERED BMP,LIVER,CBCD,PT/INR,TSH,HEBSAG,HECAB,HEAT,HEP B CORE, AND ELF.MANAGER OF EMPLOYEE RELATIONS.AMOS ORDERED CMP AND A1C Performed By: #### L 3100.0460, L300.3900, L100.0100, L3890.6202, L501.9520, L500.2500, L3890.6301, L500.3400, L3410.9992, L3100.0300, L3890.6102, L501.9985 ####[facility] [address] [place], [place], [phone] Absolute Neut 7.9 X10 3/uL High 2.0-7.7 [facility] Comment on above: Order Comment: KATHY CALDERON ORDERED BMP,LIVER,CBCD,PT/INR,TSH,HEBSAG,HECAB,HEAT,HEP B CORE, AND ELF.MANAGER OF EMPLOYEE RELATIONS.SAMANTHAHOWalter ORDERED CMP AND A1C Performed By: #### L 3100.0460, L300.3900, L100.0100, L3890.6202, L501.9520, L500.2500, L3890.6301, L500.3400, L3410.9992, L3100.0300, L3890.6102, L501.9985 ####[facility] [address] [place], [place], [phone] Basophils/100 WBC (Bld) 0.5 % Normal 0-1 [facility] Comment on above: Order Comment: KATHY CALDERON ORDERED BMP,LIVER,CBCD,PT/INR,TSH,HEBSAG,HECAB,HEAT,HEP B CORE, AND ELF.MANAGER OF EMPLOYEE RELATIONSKELVINHOWalter ORDERED CMP AND A1C Performed By: #### L 3100.0460, L300.3900, L100.0100, L3890.6202, L501.9520, L500.2500, L3890.6301, L500.3400, L3410.9992, L3100.0300, L3890.6102, L501.9985 ####[facility] [address] [facility] [place], [address] Eosinophils/100 WBC (Bld) 0.5 % Normal 0-5 [facility] Comment on above: Order Comment: KATHY CALDERON ORDERED BMP,LIVER,CBCD,PT/INR,TSH,HEBSAG,HECAB,HEAT,HEP B CORE, AND ELF.ANTONIA ORDERED CMP AND A1C Performed By: #### L 3100.0460, L300.3900, L100.0100, L3890.6202, L501.9520, L500.2500, L3890.6301, L500.3400, L3410.9992, L3100.0300, L3890.6102, L501.9985 ####[facility] [address] [facility] [place], [place], [phone] Erythrocyte distribution width (RBC) [Ratio] 13.4 % Normal 11.6-14.6 [facility] Comment on above: Order Comment: KATHY CALDERON ORDERED BMP,LIVER,CBCD,PT/INR,TSH,HEBSAG,HECAB,HEAT,HEP B CORE, AND ELF.ANTONIA ORDERED CMP AND A1C Performed By: #### L 3100.0460, L300.3900, L100.0100, L3890.6202, L501.9520, L500.2500, L3890.6301, L500.3400, L3410.9992, L3100.0300, L3890.6102, L501.9985 ####[facility] [address] [facility] [place], [place], [phone] Hematocrit (Bld) [Volume fraction] 40.5 % Normal 37-47 [facility] Comment on above: Order Comment: KATHY CALDERON ORDERED BMP,LIVER,CBCD,PT/INR,TSH,HEBSAG,HECAB,HEAT,HEP B CORE, AND ELF.ANTONIA ORDERED CMP AND A1C Performed By: #### L 3100.0460, L300.3900, L100.0100, L3890.6202, L501.9520, L500.2500, L3890.6301, L500.3400, L3410.9992, L3100.0300, L3890.6102, L501.9985 ####[facility] [address] [place], [place], [phone] Hemoglobin (Bld) [Mass/Vol] 13.5 g/dL Normal 12.0-15.0 [facility] Comment on above: Order Comment: KATHY CALDERON ORDERED BMP,LIVER,CBCD,PT/INR,TSH,HEBSAG,HECAB,HEAT,HEP B CORE, AND ELF.ANTONIA ORDERED CMP AND A1C Performed By: #### L 3100.0460, L300.3900, L100.0100, L3890.6202, L501.9520, L500.2500, L3890.6301, L500.3400, L3410.9992, L3100.0300, L3890.6102, L501.9985 ####[facility] [address] [place], [address] IG% 1.500 High 0.0-0.9 [facility] Comment on above: Order Comment: KATHY CALDERON ORDERED BMP,LIVER,CBCD,PT/INR,TSH,HEBSAG,HECAB,HEAT,HEP B CORE, AND ELF.ANTONIA ORDERED CMP AND A1C Result Comment: IG% - Immature Granulocytes (promyelocytes, myelocytes andmetamyelocytes) > 1% indicates that a LEFT SHIFT is Present. Performed By: #### L 3100.0460, L300.3900, L100.0100, L3890.6202, L501.9520, L500.2500, L3890.6301, L500.3400, L3410.9992, L3100.0300, L3890.6102, L501.9985 ####[facility] [address] [place], [address] Lymphocytes/100 WBC (Bld) 16.3 % Low 19-41 [facility] Comment on above: Order Comment: KATHY CALDERON ORDERED BMP,LIVER,CBCD,PT/INR,TSH,HEBSAG,HECAB,HEAT,HEP B CORE, AND ELF.ANTONIA ORDERED CMP AND A1C Performed By: #### L 3100.0460, L300.3900, L100.0100, L3890.6202, L501.9520, L500.2500, L3890.6301, L500.3400, L3410.9992, L3100.0300, L3890.6102, L501.9985 ####[facility] [address] [place], [address] MCH (RBC) [Entitic mass] 29.7 pg Normal 27.0-32.0 [facility] Comment on above: Order Comment: KATHY CALDERON ORDERED BMP,LIVER,CBCD,PT/INR,TSH,HEBSAG,HECAB,HEAT,HEP B CORE, AND ELF.ANTONIA ORDERED CMP AND A1C Performed By: #### L 3100.0460, L300.3900, L100.0100, L3890.6202, L501.9520, L500.2500, L3890.6301, L500.3400, L3410.9992, L3100.0300, L3890.6102, L501.9985 ####[facility] [address] [place], [address] MCHC (RBC) [Mass/Vol] 33.3 g/dL Normal 32-36 [facility] Comment on above: Order Comment: KATHY CALDERON ORDERED BMP,LIVER,CBCD,PT/INR,TSH,HEBSAG,HECAB,HEAT,HEP B CORE, AND ELF.MANAGER OF EMPLOYEE RELATIONS.SAMANTHAHOWalter ORDERED CMP AND A1C Performed By: #### L 3100.0460, L300.3900, L100.0100, L3890.6202, L501.9520, L500.2500, L3890.6301, L500.3400, L3410.9992, L3100.0300, L3890.6102, L501.9985 ####[facility] [address] [place], [address] MCV (RBC) [Entitic vol] 89.0 fL Normal 81-99 [facility] Comment on above: Order Comment: KATHY CALDERON ORDERED BMP,LIVER,CBCD,PT/INR,TSH,HEBSAG,HECAB,HEAT,HEP B CORE, AND ELF.MANAGER OF EMPLOYEE RELATIONS.SAMANTHAHOWalter ORDERED CMP AND A1C Performed By: #### L 3100.0460, L300.3900, L100.0100, L3890.6202, L501.9520, L500.2500, L3890.6301, L500.3400, L3410.9992, L3100.0300, L3890.6102, L501.9985 ####[facility] [address] [place], [address] Monocytes/100 WBC (Bld) 4.8 % Normal 0-10 [facility] Comment on above: Order Comment: KATHY CALDERON ORDERED BMP,LIVER,CBCD,PT/INR,TSH,HEBSAG,HECAB,HEAT,HEP B CORE, AND ELF.MANAGER OF EMPLOYEE RELATIONS.SAMANTHAHOF ORDERED CMP AND A1C Performed By: #### L 3100.0460, L300.3900, L100.0100, L3890.6202, L501.9520, L500.2500, L3890.6301, L500.3400, L3410.9992, L3100.0300, L3890.6102, L501.9985 ####[facility] [address] [place], [address] Neutrophils/100 WBC (Bld) 76.4 % High 47-70 [facility] Comment on above: Order Comment: KATHY CALDERON ORDERED BMP,LIVER,CBCD,PT/INR,TSH,HEBSAG,HECAB,HEAT,HEP B CORE, AND ELF.ANTONIA ORDERED CMP AND A1C Performed By: #### L 3100.0460, L300.3900, L100.0100, L3890.6202, L501.9520, L500.2500, L3890.6301, L500.3400, L3410.9992, L3100.0300, L3890.6102, L501.9985 ####[facility] [address] [place], [address] Nucleated RBC (Bld) [#/Vol] 0 10*3/uL Normal 0-5 [facility] Comment on above: Order Comment: KATHY CALDERON ORDERED BMP,LIVER,CBCD,PT/INR,TSH,HEBSAG,HECAB,HEAT,HEP B CORE, AND ELF.ANTONIA ORDERED CMP AND A1C Performed By: #### L 3100.0460, L300.3900, L100.0100, L3890.6202, L501.9520, L500.2500, L3890.6301, L500.3400, L3410.9992, L3100.0300, L3890.6102, L501.9985 ####[facility] [address] [place], [address] Platelet mean volume (Bld) [Entitic vol] 11.5 fL Normal 6.2-12.0 [facility] Comment on above: Order Comment: KATHY CALDERON ORDERED BMP,LIVER,CBCD,PT/INR,TSH,HEBSAG,HECAB,HEAT,HEP B CORE, AND ELF.ANTONIA ORDERED CMP AND A1C Performed By: #### L 3100.0460, L300.3900, L100.0100, L3890.6202, L501.9520, L500.2500, L3890.6301, L500.3400, L3410.9992, L3100.0300, L3890.6102, L501.9985 ####[facility] [address] [place], [address] Platelets (Bld) [#/Vol] 215 10*3/uL Normal 150-450 [facility] Comment on above: Order Comment: KATHY CALDERON ORDERED BMP,LIVER,CBCD,PT/INR,TSH,HEBSAG,HECAB,HEAT,HEP B CORE, AND ELF.ANTONIA ORDERED CMP AND A1C Performed By: #### L 3100.0460, L300.3900, L100.0100, L3890.6202, L501.9520, L500.2500, L3890.6301, L500.3400, L3410.9992, L3100.0300, L3890.6102, L501.9985 ####[facility] [address] [place], [place], [phone](474) RBC (Bld) [#/Vol] 4.55 10*6/uL Normal 4.2-5.4 [facility] Comment on above: Order Comment: KATHY CALDERON ORDERED BMP,LIVER,CBCD,PT/INR,TSH,HEBSAG,HECAB,HEAT,HEP B CORE, AND ELF.ANTONIA ORDERED CMP AND A1C Performed By: #### L 3100.0460, L300.3900, L100.0100, L3890.6202, L501.9520, L500.2500, L3890.6301, L500.3400, L3410.9992, L3100.0300, L3890.6102, L501.9985 ####[facility] [address] [place], [address] RDW SD 43.5 fl Normal 35.1-43.9 [facility] Comment on above: Order Comment: KATHY CALDERON ORDERED BMP,LIVER,CBCD,PT/INR,TSH,HEBSAG,HECAB,HEAT,HEP B CORE, AND ELF.ANTONIA ORDERED CMP AND A1C Performed By: #### L 3100.0460, L300.3900, L100.0100, L3890.6202, L501.9520, L500.2500, L3890.6301, L500.3400, L3410.9992, L3100.0300, L3890.6102, L501.9985 ####[facility] [address] [place], [address] WBC (Bld) [#/Vol] 10.4 10*3/uL Normal 4.4-11.0 [facility] Comment on above: Order Comment: KATHY CALDERON ORDERED BMP,LIVER,CBCD,PT/INR,TSH,HEBSAG,HECAB,HEAT,HEP B CORE, AND ELF.ANTONIA ORDERED CMP AND A1C Performed By: #### L 3100.0460, L300.3900, L100.0100, L3890.6202, L501.9520, L500.2500, L3890.6301, L500.3400, L3410.9992, L3100.0300, L3890.6102, L501.9985 ####[facility] [address] [place], [address] Hemoglobin A1con 02-03-2025 HbA1c (Bld) [Mass fraction] 10.9 % High <=5.6 [facility] Comment on above: Order Comment: KATHY CALDERON ORDERED BMP,LIVER,CBCD,PT/INR,TSH,HEBSAG,HECAB,HEAT,HEP B CORE, AND ELF.ANTONIA ORDERED CMP AND A1C Result Comment: Norm al < 5.7 % Prediabetic 5.7 - 6.4 % Diabetic >or= 6.5 % Please note range changes. Performed By: #### L 3100.0460, L300.3900, L100.0100, L3890.6202, L501.9520, L500.2500, L3890.6301, L500.3400, L3410.9992, L3100.0300, L3890.6102, L501.9985 ####[facility] [address] [place], [place], [id number] Hepatitis B Surface Antibody on 02-03-2025 HEP B Surf Ab Non-Reactive Normal [facility] Comment on above: Order Comment: KATHY CALDERON [...] L500.2500, L3890.6301, L500.3400, L3410.9992, L3100.0300, L3890.6102, L501.9985 ####[facility] [address] [facility] [place], [address] Hepatitis C Antibodyon 02-03 Hepatitis C Ab Non-Reactive Normal Nonreactive [facility] Comment on above: Order Comment: KATHY CALDERON ORDERED BMP,LIVER,CBCD,PT/INR,TSH,HEBSAG,HECAB,HEAT,HEP B CORE, AND ELF.ANTONIA ORDERED CMP AND A1C Result Comment: Reac tive: Presumptive evidence of antibodies to HCV. [facility] for supplemental testing.Non-Reactive: Antibodies to HCV were not detected; does notexclude the possibility of exposure to HCVReactive Results are presumptive evidence of antibodies toHCV. Follow CDC recommendations for supplemental testing.Order confirmation testing: HCV Quant by PCR testing -[facility]CV[facility] #[id number] Non Reactive: < 0.8 Equivocal: >/= 0.8 to < 1.0 Reactive: >/= 1.0The [facility] requires that a reactive/equivocal HCV antibodyresult be sent out for confirmation. HCV Quant by PCRtesting. Performed By: #### L 3100.0460, L300.3900, L100.0100, L3890.6202, L501.9520, L500.2500, L3890.6301, L500.3400, L3410.9992, L3100.0300, L3890.6102, L501.9985 ####[facility] [address] [facility] [place], [address] L3890.6102on 02-03-2025 HEP B Surf Ag Non-Reactive Normal Nonreactive [facility] Comment on above: Order Comment: KATHY CALDERON [...] L500.2500, L3890.6301, L500.3400, L3410.9992, L3100.0300, L3890.6102, L501.9985 ####[facility] [address] [facility] [place], [address] Liver Profileon 02-03-2025 Albumin [Mass/Vol] 4.2 g/dL Normal 3.5-5.0 [facility] Comment on above: Order Comment: KATHY CALDERON ORDERED BMP,LIVER,CBCD,PT/INR,TSH,HEBSAG,HECAB,HEAT,HEP B CORE, AND ELF.ANTONIA ORDERED CMP AND A1C Performed By: #### L 3100.0460, L300.3900, L100.0100, L3890.6202, L501.9520, L500.2500, L3890.6301, L500.3400, L3410.9992, L3100.0300, L3890.6102, L501.9985 ####[facility] [address] [place], [address] ALK PHOS 95 U/L Normal 35-104 [facility] Comment on above: Order Comment: KATHY CALDERON ORDERED BMP,LIVER,CBCD,PT/INR,TSH,HEBSAG,HECAB,HEAT,HEP B CORE, AND ELF.ANTONIA ORDERED CMP AND A1C Performed By: #### L 3100.0460, L300.3900, L100.0100, L3890.6202, L501.9520, L500.2500, L3890.6301, L500.3400, L3410.9992, L3100.0300, L3890.6102, L501.9985 ####[facility] [address] [place], [address] ALT [Catalytic activity/Vol] 29 U/L Normal <=34 [facility] Comment on above: Order Comment: KATHY CALDERON ORDERED BMP,LIVER,CBCD,PT/INR,TSH,HEBSAG,HECAB,HEAT,HEP B CORE, AND ELF.ANTONIA ORDERED CMP AND A1C Performed By: #### L 3100.0460, L300.3900, L100.0100, L3890.6202, L501.9520, L500.2500, L3890.6301, L500.3400, L3410.9992, L3100.0300, L3890.6102, L501.9985 ####[facility] [address] [place], [place], [phone] AST [Catalytic activity/Vol] 18 U/L Normal <=31 [facility] Comment on above: Order Comment: KATHY CALDERON ORDERED BMP,LIVER,CBCD,PT/INR,TSH,HEBSAG,HECAB,HEAT,HEP B CORE, AND ELF.ANTONIA ORDERED CMP AND A1C Performed By: #### L 3100.0460, L300.3900, L100.0100, L3890.6202, L501.9520, L500.2500, L3890.6301, L500.3400, L3410.9992, L3100.0300, L3890.6102, L501.9985 ####[facility] [address] [place], [place], [phone]) Bilirubin [Mass/Vol] 0.30 mg/dL Normal 0.00-1.30 [facility] Comment on above: Order Comment: KATHY CALDERON ORDERED BMP,LIVER,CBCD,PT/INR,TSH,HEBSAG,HECAB,HEAT,HEP B CORE, AND ELF.ANTONIA ORDERED CMP AND A1C Performed By: #### L 3100.0460, L300.3900, L100.0100, L3890.6202, L501.9520, L500.2500, L3890.6301, L500.3400, L3410.9992, L3100.0300, L3890.6102, L501.9985 ####[facility] [address] [place], [place], [phone]) Bilirubin.direct [Mass/Vol] 0.13 mg/dL Normal 0.00-0.30 [facility] Comment on above: Order Comment: KATHY CALDERON ORDERED BMP,LIVER,CBCD,PT/INR,TSH,HEBSAG,HECAB,HEAT,HEP B CORE, AND ELF.ANTONIA ORDERED CMP AND A1C Performed By: #### L 3100.0460, L300.3900, L100.0100, L3890.6202, L501.9520, L500.2500, L3890.6301, L500.3400, L3410.9992, L3100.0300, L3890.6102, L501.9985 ####[facility] [address] [place], [place], [phone] Globulin (S) [Mass/Vol] 2.7 g/dL Normal 2.2-4.2 [facility] Comment on above: Order Comment: KATHY CALDERON ORDERED BMP,LIVER,CBCD,PT/INR,TSH,HEBSAG,HECAB,HEAT,HEP B CORE, AND ELF.ANTONIA ORDERED CMP AND A1C Performed By: #### L 3100.0460, L300.3900, L100.0100, L3890.6202, L501.9520, L500.2500, L3890.6301, L500.3400, L3410.9992, L3100.0300, L3890.6102, L501.9985 ####[facility] [address] [place], [place], [phone] T PROT 6.8 g/dL Normal 5.9-8.4 [facility] Comment on above: Order Comment: KATHY CALDERON ORDERED BMP,LIVER,CBCD,PT/INR,TSH,HEBSAG,HECAB,HEAT,HEP B CORE, AND ELF.ANTONIA ORDERED CMP AND A1C Performed By: #### L 3100.0460, L300.3900, L100.0100, L3890.6202, L501.9520, L500.2500, L3890.6301, L500.3400, L3410.9992, L3100.0300, L3890.6102, L501.9985 ####[facility] [address] [place], [address] Prothrombin Time w/INRon INR Coag (PPP) [Relative time] 0.9 {INR} Normal [facility] Comment on above: Order Comment: KATHY CALDEORN ORDERED BMP,LIVER,CBCD,PT/INR,TSH,HEBSAG,HECAB,HEAT,HEP B CORE, AND ELF.ANTONIA ORDERED CMP AND A1C Performed By: #### L 3100.0460, L300.3900, L100.0100, L3890.6202, L501.9520, L500.2500, L3890.6301, L500.3400, L3410.9992, L3100.0300, L3890.6102, L501.9985 ####[facility] [address] [place], [place], [phone] PT Coag (PPP) [Time] 11.9 s Normal 11.7-14.9 [facility] Comment on above: Order Comment: KATHY CALDERON ORDERED BMP,LIVER,CBCD,PT/INR,TSH,HEBSAG,HECAB,HEAT,HEP B CORE, AND ELF.ANTONIA ORDERED CMP AND A1C Performed By: #### L 3100.0460, L300.3900, L100.0100, L3890.6202, L501.9520, L500.2500, L3890.6301, L500.3400, L3410.9992, L3100.0300, L3890.6102, L501.9985 ####[facility] [address] [facility] [place], [place], [phone] Thyroid Stim Hormone (TSH)on 02-03-2025 TSH 1.140 uIU/mL Normal 0.300-4.200 [facility] Comment on above: Order Comment: KATHY CALDERON ORDERED BMP,LIVER,CBCD,PT/INR,TSH,HEBSAG,HECAB,HEAT,HEP B CORE, AND ELF.ANTONIA ORDERED CMP AND A1C Performed By: #### L 3100.0460, L300.3900, L100.0100, L3890.6202, L501.9520, L500.2500, L3890.6301, L500.3400, L3410.9992, L3100.0300, L3890.6102, L501.9985 ####[facility] [address] [place], [address] Basic Metabolic Profile (BMP )on 02-01-2025 BUN Normal 4-19 [facility] Comment on above: Result Comment: Canc elled via OM: Order cancelled - Patient discharged Performed By: #### L 500.2500, L100.0100 ####[facility] [address] [place], [address] BUN/CRE Normal 10-20 [facility] Comment on above: Result Comment: Canc elled via OM: Order cancelled - Patient discharged Performed By: #### L 500.2500, L100.0100 ####[facility] [address] [place], [address] Calcium Normal 7.6-11.0 [facility] Comment on above: Result Comment: Canc elled via OM: Order cancelled - Patient discharged Performed By: #### L 500.2500, L100.0100 ####[facility] [address] [place], [address] CL Normal 98-108 [facility] Comment on above: Result Comment: Canc elled via OM: Order cancelled - Patient discharged Performed By: #### L 500.2500, L100.0100 ####[facility] [address] [place], [address] CO2 Normal 21.0-32.0 [facility] Comment on above: Result Comment: Canc elled via OM: Order cancelled - Patient discharged Performed By: #### L 500.2500, L100.0100 ####[facility] [address] [place], [address] CREAT,SERUM Normal 0.70-1.20 [facility] Comment on above: Result Comment: Canc elled via OM: Order cancelled - Patient discharged Performed By: #### L 500.2500, L100.0100 ####[facility] [address] [place], [address] eGFR Normal >60 [facility] Comment on above: Result Comment: Canc elled via OM: Order cancelled - Patient discharged Performed By: #### L 500.2500, L100.0100 ####[facility] [address] [place], [address] GAP Normal 5-15 [facility] Comment on above: Result Comment: Canc elled via OM: Order cancelled - Patient discharged Performed By: #### L 500.2500, L100.0100 ####[facility] [address] [place], [address] GLU Normal 70-99 [facility] Comment on above: Result Comment: Canc elled via OM: Order cancelled - Patient discharged Performed By: #### L 500.2500, L100.0100 ####[facility] [address] [place], [address] Potassium Normal 3.3-5.1 [facility] Comment on above: Result Comment: Canc elled via OM: Order cancelled - Patient discharged Performed By: #### L 500.2500, L100.0100 ####[facility] [address] [place], [address] Basic Metabolic Profile (BMP) Normal 133-145 [facility] Comment on above: Result Comment: Canc elled via OM: Order cancelled - Patient discharged Performed By: #### L 500.2500, L100.0100 ####[facility] [address] [place], [address] CBC W/Diff, Automatedon 06-0 -2024 Absolute Neut Normal 2.0-7.7 [facility] Comment on above: Result Comment: Canc elled via OM: Order cancelled - Patient discharged Performed By: #### L 500.2500, L100.0100 ####[facility] [address] [place], [address] HCT Normal 37-47 [facility] Comment on above: Result Comment: Canc elled via OM: Order cancelled - Patient discharged Performed By: #### L 500.2500, L100.0100 ####[facility] [address] [place], [address] HGB Normal 12.0-15.0 [facility] Comment on above: Result Comment: Canc elled via OM: Order cancelled - Patient discharged Performed By: #### L 500.2500, L100.0100 ####[facility] [address] [place], [address] MCH Normal 27.0-32.0 [facility] Comment on above: Result Comment: Canc elled via OM: Order cancelled - Patient discharged Performed By: #### L 500.2500, L100.0100 ####[facility] [address] [place], [address] MCHC Normal 32-36 [facility] Comment on above: Result Comment: Canc elled via OM: Order cancelled - Patient discharged Performed By: #### L 500.2500, L100.0100 ####[facility] [address] [place], [address] MCV Normal 81-99 [facility] Comment on above: Result Comment: Canc elled via OM: Order cancelled - Patient discharged Performed By: #### L 500.2500, L100.0100 ####[facility] [address] [place], [address] NEUT% Normal 47-70 [facility] Comment on above: Result Comment: Canc elled via OM: Order cancelled - Patient discharged Performed By: #### L 500.2500, L100.0100 ####[facility] [address] [place], [address] PLT Normal 150-450 [facility] Comment on above: Result Comment: Canc elled via OM: Order cancelled - Patient discharged Performed By: #### L 500.2500, L100.0100 ####[facility] [address] [place], [address] RBC Normal 4.2-5.4 [facility] Comment on above: Result Comment: Canc elled via OM: Order cancelled - Patient discharged Performed By: #### L 500.2500, L100.0100 ####[facility] [address] [place], [address] RDW CV Normal 11.6-14.6 [facility] Comment on above: Result Comment: Canc elled via OM: Order cancelled - Patient discharged Performed By: #### L 500.2500, L100.0100 ####[facility] [address] [place], [address] RDW SD Normal 35.1-43.9 [facility] Comment on above: Result Comment: Canc elled via OM: Order cancelled - Patient discharged Performed By: #### L 500.2500, L100.0100 ####[facility] [address] [place], [address] WBC Normal 4.4-11.0 [facility] Comment on above: Result Comment: Canc elled via OM: Order cancelled - Patient discharged Performed By: #### L 500.2500, L100.0100 ####[facility] [address] [place], [address] Basic Metabolic Profile (BMP )on 01-31-2025 BUN Normal 4-19 [facility] Comment on above: Result Comment: Canc elled via OM: Order cancelled - Patient discharged Performed By: #### L 500.2500, L100.0100 ####[facility] [address] [place], [address] BUN/CRE Normal 10-20 [facility] Comment on above: Result Comment: Canc elled via OM: Order cancelled - Patient discharged Performed By: #### L 500.2500, L100.0100 ####[facility] [address] [place], [address] Calcium Normal 7.6-11.0 [facility] Comment on above: Result Comment: Canc elled via OM: Order cancelled - Patient discharged Performed By: #### L 500.2500, L100.0100 ####[facility] [address] [place], [address] CL Normal 98-108 [facility] Comment on above: Result Comment: Canc elled via OM: Order cancelled - Patient discharged Performed By: #### L 500.2500, L100.0100 ####[facility] [address] [place], [address] CO2 Normal 21.0-32.0 [facility] Comment on above: Result Comment: Canc elled via OM: Order cancelled - Patient discharged Performed By: #### L 500.2500, L100.0100 ####[facility] [address] [place], [address] CREAT,SERUM Normal 0.70-1.20 [facility] Comment on above: Result Comment: Canc elled via OM: Order cancelled - Patient discharged Performed By: #### L 500.2500, L100.0100 ####[facility] [address] [place], [address] eGFR Normal >60 [facility] Comment on above: Result Comment: Canc elled via OM: Order cancelled - Patient discharged Performed By: #### L 500.2500, L100.0100 ####[facility] [address] [place], [address] GAP Normal 5-15 [facility] Comment on above: Result Comment: Canc elled via OM: Order cancelled - Patient discharged Performed By: #### L 500.2500, L100.0100 ####[facility] [address] [place], [address] GLU Normal 70-99 [facility] Comment on above: Result Comment: Canc elled via OM: Order cancelled - Patient discharged Performed By: #### L 500.2500, L100.0100 ####[facility] [address] [place], [address] Potassium Normal 3.3-5.1 [facility] Comment on above: Result Comment: Canc elled via OM: Order cancelled - Patient discharged Performed By: #### L 500.2500, L100.0100 ####[facility] [address] [place], [address] Basic Metabolic Profile (BMP) Normal 133-145 [facility] Comment on above: Result Comment: Canc elled via OM: Order cancelled - Patient discharged Performed By: #### L 500.2500, L100.0100 ####[facility] [address] [place], [address] CBC W/Diff, Automatedon 06-0 6-2024 Absolute Neut Normal 2.0-7.7 [facility] Comment on above: Result Comment: Canc elled via OM: Order cancelled - Patient discharged Performed By: #### L 500.2500, L100.0100 ####[facility] [address] [place], [address] HCT Normal 37-47 [facility] Comment on above: Result Comment: Canc elled via OM: Order cancelled - Patient discharged Performed By: #### L 500.2500, L100.0100 ####[facility] [address] [place], [address] HGB Normal 12.0-15.0 [facility] Comment on above: Result Comment: Canc elled via OM: Order cancelled - Patient discharged Performed By: #### L 500.2500, L100.0100 ####[facility] [address] [place], [address] MCH Normal 27.0-32.0 [facility] Comment on above: Result Comment: Canc elled via OM: Order cancelled - Patient discharged Performed By: #### L 500.2500, L100.0100 ####[facility] [address] [place], [address] MCHC Normal 32-36 [facility] Comment on above: Result Comment: Canc elled via OM: Order cancelled - Patient discharged Performed By: #### L 500.2500, L100.0100 ####[facility] [address] [place], [address] MCV Normal 81-99 [facility] Comment on above: Result Comment: Canc elled via OM: Order cancelled - Patient discharged Performed By: #### L 500.2500, L100.0100 ####[facility] [address] [place], [address] NEUT% Normal 47-70 [facility] Comment on above: Result Comment: Canc elled via OM: Order cancelled - Patient discharged Performed By: #### L 500.2500, L100.0100 ####[facility] [address] [place], [address] PLT Normal 150-450 [facility] Comment on above: Result Comment: Canc elled via OM: Order cancelled - Patient discharged Performed By: #### L 500.2500, L100.0100 ####[facility] [address] [place], [address] RBC Normal 4.2-5.4 [facility] Comment on above: Result Comment: Canc elled via OM: Order cancelled - Patient discharged Performed By: #### L 500.2500, L100.0100 ####[facility] [address] [place], [address] RDW CV Normal 11.6-14.6 [facility] Comment on above: Result Comment: Canc elled via OM: Order cancelled - Patient discharged Performed By: #### L 500.2500, L100.0100 ####[facility] [address] [place], [address] RDW SD Normal 35.1-43.9 [facility] Comment on above: Result Comment: Canc elled via OM: Order cancelled - Patient discharged Performed By: #### L 500.2500, L100.0100 ####[facility] [address] [place], [address] WBC Normal 4.4-11.0 [facility] Comment on above: Result Comment: Canc elled via OM: Order cancelled - Patient discharged Performed By: #### L 500.2500, L100.0100 ####[facility] [address] [place], [address] Basic Metabolic Profile (BMP )on 01-30-2025 BUN Normal 4-19 [facility] Comment on above: Result Comment: Canc elled via OM: Order cancelled - Patient discharged Performed By: #### L 500.2500, L100.0100 ####[facility] [address] [place], [address] BUN/CRE Normal 10-20 [facility] Comment on above: Result Comment: Canc elled via OM: Order cancelled - Patient discharged Performed By: #### L 500.2500, L100.0100 ####[facility] [address] [place], [address] Calcium Normal 7.6-11.0 [facility] Comment on above: Result Comment: Canc elled via OM: Order cancelled - Patient discharged Performed By: #### L 500.2500, L100.0100 ####[facility] [address] [place], [address] CL Normal 98-108 [facility] Comment on above: Result Comment: Canc elled via OM: Order cancelled - Patient discharged Performed By: #### L 500.2500, L100.0100 ####[facility] [address] [place], [address] CO2 Normal 21.0-32.0 [facility] Comment on above: Result Comment: Canc elled via OM: Order cancelled - Patient discharged Performed By: #### L 500.2500, L100.0100 ####[facility] [address] [place], [address] CREAT,SERUM Normal 0.70-1.20 [facility] Comment on above: Result Comment: Canc elled via OM: Order cancelled - Patient discharged Performed By: #### L 500.2500, L100.0100 ####[facility] [address] [place], [address] eGFR Normal >60 [facility] Comment on above: Result Comment: Canc elled via OM: Order cancelled - Patient discharged Performed By: #### L 500.2500, L100.0100 ####[facility] [address] [place], [address] GAP Normal 5-15 [facility] Comment on above: Result Comment: Canc elled via OM: Order cancelled - Patient discharged Performed By: #### L 500.2500, L100.0100 ####[facility] [address] [place], [address] GLU Normal 70-99 [facility] Comment on above: Result Comment: Canc elled via OM: Order cancelled - Patient discharged Performed By: #### L 500.2500, L100.0100 ####[facility] [address] [place], [address] Potassium Normal 3.3-5.1 [facility] Comment on above: Result Comment: Canc elled via OM: Order cancelled - Patient discharged Performed By: #### L 500.2500, L100.0100 ####[facility] [address] [place], [address] Basic Metabolic Profile (BMP) Normal 133-145 [facility] Comment on above: Result Comment: Canc elled via OM: Order cancelled - Patient discharged Performed By: #### L 500.2500, L100.0100 ####[facility] [address] [place], [address] CBC W/Diff, Automatedon 06-0 5-2024 Absolute Neut Normal 2.0-7.7 [facility] Comment on above: Result Comment: Canc elled via OM: Order cancelled - Patient discharged Performed By: #### L 500.2500, L100.0100 ####[facility] [address] [place], [address] HCT Normal 37-47 [facility] Comment on above: Result Comment: Canc elled via OM: Order cancelled - Patient discharged Performed By: #### L 500.2500, L100.0100 ####[facility] [address] [place], [address] HGB Normal 12.0-15.0 [facility] Comment on above: Result Comment: Canc elled via OM: Order cancelled - Patient discharged Performed By: #### L 500.2500, L100.0100 ####[facility] [address] [place], [address] MCH Normal 27.0-32.0 [facility] Comment on above: Result Comment: Canc elled via OM: Order cancelled - Patient discharged Performed By: #### L 500.2500, L100.0100 ####[facility] [address] [place], [address] MCHC Normal 32-36 [facility] Comment on above: Result Comment: Canc elled via OM: Order cancelled - Patient discharged Performed By: #### L 500.2500, L100.0100 ####[facility] [address] [place], [address] MCV Normal 81-99 [facility] Comment on above: Result Comment: Canc elled via OM: Order cancelled - Patient discharged Performed By: #### L 500.2500, L100.0100 ####[facility] [address] [place], [address] NEUT% Normal 47-70 [facility] Comment on above: Result Comment: Canc elled via OM: Order cancelled - Patient discharged Performed By: #### L 500.2500, L100.0100 ####[facility] [address] [place], [address] PLT Normal 150-450 [facility] Comment on above: Result Comment: Canc elled via OM: Order cancelled - Patient discharged Performed By: #### L 500.2500, L100.0100 ####[facility] [address] [place], [address] RBC Normal 4.2-5.4 [facility] Comment on above: Result Comment: Canc elled via OM: Order cancelled - Patient discharged Performed By: #### L 500.2500, L100.0100 ####[facility] [address] [place], [address] RDW CV Normal 11.6-14.6 [facility] Comment on above: Result Comment: Canc elled via OM: Order cancelled - Patient discharged Performed By: #### L 500.2500, L100.0100 ####[facility] [address] [place], [address] RDW SD Normal 35.1-43.9 [facility] Comment on above: Result Comment: Canc elled via OM: Order cancelled - Patient discharged Performed By: #### L 500.2500, L100.0100 ####[facility] [address] [place], [address] WBC Normal 4.4-11.0 [facility] Comment on above: Result Comment: Canc elled via OM: Order cancelled - Patient discharged Performed By: #### L 500.2500, L100.0100 ####[facility] [address] [place], [address] Basic Metabolic Profile (BMP )on 01-29-2025 BUN Normal 4-19 [facility] Comment on above: Result Comment: Canc elled via OM: Order cancelled - Patient discharged Performed By: #### L 500.2500, L100.0100 ####[facility] [address] [place], [address] BUN/CRE Normal 10-20 [facility] Comment on above: Result Comment: Canc elled via OM: Order cancelled - Patient discharged Performed By: #### L 500.2500, L100.0100 ####[facility] [address] [place], [address] Calcium Normal 7.6-11.0 [facility] Comment on above: Result Comment: Canc elled via OM: Order cancelled - Patient discharged Performed By: #### L 500.2500, L100.0100 ####[facility] [address] [place], [address] CL Normal 98-108 [facility] Comment on above: Result Comment: Canc elled via OM: Order cancelled - Patient discharged Performed By: #### L 500.2500, L100.0100 ####[facility] [address] [place], [address] CO2 Normal 21.0-32.0 [facility] Comment on above: Result Comment: Canc elled via OM: Order cancelled - Patient discharged Performed By: #### L 500.2500, L100.0100 ####[facility] [address] [place], [address] CREAT,SERUM Normal 0.70-1.20 [facility] Comment on above: Result Comment: Canc elled via OM: Order cancelled - Patient discharged Performed By: #### L 500.2500, L100.0100 ####[facility] [address] [place], [address] eGFR Normal >60 [facility] Comment on above: Result Comment: Canc elled via OM: Order cancelled - Patient discharged Performed By: #### L 500.2500, L100.0100 ####[facility] [address] [place], [address] GAP Normal 5-15 [facility] Comment on above: Result Comment: Canc elled via OM: Order cancelled - Patient discharged Performed By: #### L 500.2500, L100.0100 ####[facility] [address] [place], [address] GLU Normal 70-99 [facility] Comment on above: Result Comment: Canc elled via OM: Order cancelled - Patient discharged Performed By: #### L 500.2500, L100.0100 ####[facility] [address] [place], [address] Potassium Normal 3.3-5.1 [facility] Comment on above: Result Comment: Canc elled via OM: Order cancelled - Patient discharged Performed By: #### L 500.2500, L100.0100 ####[facility] [address] [place], [address] Basic Metabolic Profile (BMP) Normal 133-145 [facility] Comment on above: Result Comment: Canc elled via OM: Order cancelled - Patient discharged Performed By: #### L 500.2500, L100.0100 ####[facility] [address] [place], [address] CBC W/Diff, Automatedon 06-0 Absolute Neut Normal 2.0-7.7 [facility] Comment on above: Result Comment: Canc elled via OM: Order cancelled - Patient discharged Performed By: #### L 500.2500, L100.0100 ####[facility] [address] [place], [address] HCT Normal 37-47 [facility] Comment on above: Result Comment: Canc elled via OM: Order cancelled - Patient discharged Performed By: #### L 500.2500, L100.0100 ####[facility] [address] [place], [address] HGB Normal 12.0-15.0 [facility] Comment on above: Result Comment: Canc elled via OM: Order cancelled - Patient discharged Performed By: #### L 500.2500, L100.0100 ####[facility] [address] [place], [address] MCH Normal 27.0-32.0 [facility] Comment on above: Result Comment: Canc elled via OM: Order cancelled - Patient discharged Performed By: #### L 500.2500, L100.0100 ####[facility] [address] [place], [address] MCHC Normal 32-36 [facility] Comment on above: Result Comment: Canc elled via OM: Order cancelled - Patient discharged Performed By: #### L 500.2500, L100.0100 ####[facility] [address] [place], [address] MCV Normal 81-99 [facility] Comment on above: Result Comment: Canc elled via OM: Order cancelled - Patient discharged Performed By: #### L 500.2500, L100.0100 ####[facility] [address] [place], [address] NEUT% Normal 47-70 [facility] Comment on above: Result Comment: Canc elled via OM: Order cancelled - Patient discharged Performed By: #### L 500.2500, L100.0100 ####[facility] [address] [place], [address] PLT Normal 150-450 [facility] Comment on above: Result Comment: Canc elled via OM: Order cancelled - Patient discharged Performed By: #### L 500.2500, L100.0100 ####[facility] [address] [place], [address] RBC Normal 4.2-5.4 [facility] Comment on above: Result Comment: Canc elled via OM: Order cancelled - Patient discharged Performed By: #### L 500.2500, L100.0100 ####[facility] [address] [place], [address] RDW CV Normal 11.6-14.6 [facility] Comment on above: Result Comment: Canc elled via OM: Order cancelled - Patient discharged Performed By: #### L 500.2500, L100.0100 ####[facility] [address] [place], [address] RDW SD Normal 35.1-43.9 [facility] Comment on above: Result Comment: Canc elled via OM: Order cancelled - Patient discharged Performed By: #### L 500.2500, L100.0100 ####[facility] [address] [place], [address] WBC Normal 4.4-11.0 [facility] Comment on above: Result Comment: Canc elled via OM: Order cancelled - Patient discharged Performed By: #### L 500.2500, L100.0100 ####[facility] [address] [place], [address] Basic Metabolic Profile (BMP )on 01-28-2025 BUN Normal 4-19 [facility] Comment on above: Result Comment: Canc elled via OM: Order cancelled - Patient discharged Performed By: #### L 500.2500, L100.0100 ####[facility] [address] [place], [address] BUN/CRE Normal 10-20 [facility] [facility] Comment on above: Result Comment: Canc elled via OM: Order cancelled - Patient discharged Performed By: #### L 500.2500, L100.0100 ####[facility] [address] [place], [address] Calcium Normal 7.6-11.0 [facility] Comment on above: Result Comment: Canc elled via OM: Order cancelled - Patient discharged Performed By: #### L 500.2500, L100.0100 ####[facility] [address] [place], [address] CL Normal 98-108 [facility] Comment on above: Result Comment: Canc elled via OM: Order cancelled - Patient discharged Performed By: #### L 500.2500, L100.0100 ####[facility] [address] [place], [address] CO2 Normal 21.0-32.0 [facility] Comment on above: Result Comment: Canc elled via OM: Order cancelled - Patient discharged Performed By: #### L 500.2500, L100.0100 ####[facility] [address] [place], [address] CREAT,SERUM Normal 0.70-1.20 [facility] Comment on above: Result Comment: Canc elled via OM: Order cancelled - Patient discharged Performed By: #### L 500.2500, L100.0100 ####[facility] [address] [place], [address] eGFR Normal >60 [facility] Comment on above: Result Comment: Canc elled via OM: Order cancelled - Patient discharged Performed By: #### L 500.2500, L100.0100 ####[facility] [address] [place], [address] GAP Normal 5-15 [facility] Comment on above: Result Comment: Canc elled via OM: Order cancelled - Patient discharged Performed By: #### L 500.2500, L100.0100 ####[facility] [address] [place], [address] GLU Normal 70-99 [facility] Comment on above: Result Comment: Canc elled via OM: Order cancelled - Patient discharged Performed By: #### L 500.2500, L100.0100 ####[facility] [address] [place], [address] Potassium Normal 3.3-5.1 [facility] Comment on above: Result Comment: Canc elled via OM: Order cancelled - Patient discharged Performed By: #### L 500.2500, L100.0100 ####[facility] [address] [place], [address] Basic Metabolic Profile (BMP) Normal 133-145 [facility] Comment on above: Result Comment: Canc elled via OM: Order cancelled - Patient discharged Performed By: #### L 500.2500, L100.0100 ####[facility] [address] [place], [address] CBC W/Diff, Automatedon 06-0 Absolute Neut Normal 2.0-7.7 [facility] Comment on above: Result Comment: Canc elled via OM: Order cancelled - Patient discharged Performed By: #### L 500.2500, L100.0100 ####[facility] [address] [place], [address] HCT Normal 37-47 [facility] Comment on above: Result Comment: Canc elled via OM: Order cancelled - Patient discharged Performed By: #### L 500.2500, L100.0100 ####[facility] [address] [place], [address] HGB Normal 12.0-15.0 [facility] Comment on above: Result Comment: Canc elled via OM: Order cancelled - Patient discharged Performed By: #### L 500.2500, L100.0100 ####[facility] [address] [place], [address] MCH Normal 27.0-32.0 [facility] Comment on above: Result Comment: Canc elled via OM: Order cancelled - Patient discharged Performed By: #### L 500.2500, L100.0100 ####[facility] [address] [place], [address] MCHC Normal 32-36 [facility] Comment on above: Result Comment: Canc elled via OM: Order cancelled - Patient discharged Performed By: #### L 500.2500, L100.0100 ####[facility] [address] [place], [address] MCV Normal 81-99 [facility] Comment on above: Result Comment: Canc elled via OM: Order cancelled - Patient discharged Performed By: #### L 500.2500, L100.0100 ####[facility] [address] [place], [address] NEUT% Normal 47-70 [facility] Comment on above: Result Comment: Canc elled via OM: Order cancelled - Patient discharged Performed By: #### L 500.2500, L100.0100 ####[facility] [address] [place], [address] PLT Normal 150-450 [facility] Comment on above: Result Comment: Canc elled via OM: Order cancelled - Patient discharged Performed By: #### L 500.2500, L100.0100 ####[facility] [address] [place], [address] RBC Normal 4.2-5.4 [facility] Comment on above: Result Comment: Canc elled via OM: Order cancelled - Patient discharged Performed By: #### L 500.2500, L100.0100 ####[facility] [address] [place], [address] RDW CV Normal 11.6-14.6 [facility] Comment on above: Result Comment: Canc elled via OM: Order cancelled - Patient discharged Performed By: #### L 500.2500, L100.0100 ####[facility] [address] [place], [address] RDW SD Normal 35.1-43.9 [facility] Comment on above: Result Comment: Canc elled via OM: Order cancelled - Patient discharged Performed By: #### L 500.2500, L100.0100 ####[facility] [address] [place], [address] WBC Normal 4.4-11.0 [facility] Comment on above: Result Comment: Canc elled via OM: Order cancelled - Patient discharged Performed By: #### L 500.2500, L100.0100 ####[facility] [address] [place], [address] Basic Metabolic Profile (BMP )on 01-27-2025 BUN Normal 4-19 [facility] Comment on above: Result Comment: Canc elled via OM: Order cancelled - Patient discharged Performed By: #### L 100.0100, L500.2500 ####[facility] [address] [place], [address] BUN/CRE Normal 10-20 [facility] Comment on above: Result Comment: Canc elled via OM: Order cancelled - Patient discharged Performed By: #### L 100.0100, L500.2500 ####[facility] [address] [place], [address] Calcium Normal 7.6-11.0 [facility] Comment on above: Result Comment: Canc elled via OM: Order cancelled - Patient discharged Performed By: #### L 100.0100, L500.2500 ####[facility] [address] [place], [address] CL Normal 98-108 [facility] Comment on above: Result Comment: Canc elled via OM: Order cancelled - Patient discharged Performed By: #### L 100.0100, L500.2500 ####[facility] [address] [place], [address] CO2 Normal 21.0-32.0 [facility] Comment on above: Result Comment: Canc elled via OM: Order cancelled - Patient discharged Performed By: #### L 100.0100, L500.2500 ####[facility] [address] [place], [address] CREAT,SERUM Normal 0.70-1.20 [facility] Comment on above: Result Comment: Canc elled via OM: Order cancelled - Patient discharged Performed By: #### L 100.0100, L500.2500 ####[facility] [address] [place], [address] eGFR Normal >60 [facility] Comment on above: Result Comment: Canc elled via OM: Order cancelled - Patient discharged Performed By: #### L 100.0100, L500.2500 ####[facility] [address] [place], [address] GAP Normal 5-15 [facility] Comment on above: Result Comment: Canc elled via OM: Order cancelled - Patient discharged Performed By: #### L 100.0100, L500.2500 ####[facility] [address] [place], [address] GLU Normal 70-99 [facility] Comment on above: Result Comment: Canc elled via OM: Order cancelled - Patient discharged Performed By: #### L 100.0100, L500.2500 ####[facility] [address] [place], [address] Potassium Normal 3.3-5.1 [facility] Comment on above: Result Comment: Canc elled via OM: Order cancelled - Patient discharged Performed By: #### L 100.0100, L500.2500 ####[facility] [address] [place], [address] Basic Metabolic Profile (BMP) Normal 133-145 [facility] Comment on above: Result Comment: Canc elled via OM: Order cancelled - Patient discharged Performed By: #### L 100.0100, L500.2500 ####[facility] [address] [place], [address] Bedside Glucoseon - FINGERSTICK GLU 350 mg/dL High 74-106 [facility] Comment on above: Result Comment: EDGAR GEMENT OF PATIENT CARE PER NURSING PROTOCOL Performed By: #### L 501.080 ####[facility] [address] [place], [address] FINGERSTICK GLU 322 mg/dL High 74-106 [facility] Comment on above: Result Comment: EDGAR GEMENT OF PATIENT CARE PER NURSING PROTOCOL Performed By: #### L 501.080 ####[facility] [address] [place], [address] FINGERSTICK GLU 340 mg/dL High 74-106 [facility] Comment on above: Result Comment: EDGAR GEMENT OF PATIENT CARE PER NURSING PROTOCOL Performed By: #### L 501.080 ####[facility] [address] [place], [address] CBC W/Diff, Automatedon 06-0 Absolute Neut Normal 2.0-7.7 [facility] Comment on above: Result Comment: Canc elled via OM: Order cancelled - Patient discharged Performed By: #### L 100.0100, L500.2500 ####[facility] [address] [place], [address] HCT Normal 37-47 [facility] Comment on above: Result Comment: Canc elled via OM: Order cancelled - Patient discharged Performed By: #### L 100.0100, L500.2500 ####[facility] [address] [place], [address] HGB Normal 12.0-15.0 [facility] Comment on above: Result Comment: Canc elled via OM: Order cancelled - Patient discharged Performed By: #### L 100.0100, L500.2500 ####[facility] [address] [place], [address] MCH Normal 27.0-32.0 [facility] Comment on above: Result Comment: Canc elled via OM: Order cancelled - Patient discharged Performed By: #### L 100.0100, L500.2500 ####[facility] [address] [place], [address] MCHC Normal 32-36 [facility] Comment on above: Result Comment: Canc elled via OM: Order cancelled - Patient discharged Performed By: #### L 100.0100, L500.2500 ####[facility] [address] [place], [address] MCV Normal 81-99 [facility] Comment on above: Result Comment: Canc elled via OM: Order cancelled - Patient discharged Performed By: #### L 100.0100, L500.2500 ####[facility] [address] [place], [address] NEUT% Normal 47-70 [facility] Comment on above: Result Comment: Canc elled via OM: Order cancelled - Patient discharged Performed By: #### L 100.0100, L500.2500 ####[facility] [address] [place], [address] PLT Normal 150-450 [facility] Comment on above: Result Comment: Canc elled via OM: Order cancelled - Patient discharged Performed By: #### L 100.0100, L500.2500 ####[facility] [address] [place], [address] RBC Normal 4.2-5.4 [facility] Comment on above: Result Comment: Canc elled via OM: Order cancelled - Patient discharged Performed By: #### L 100.0100, L500.2500 ####[facility] [address] [place], [address] RDW CV Normal 11.6-14.6 [facility] Comment on above: Result Comment: Canc elled via OM: Order cancelled - Patient discharged Performed By: #### L 100.0100, L500.2500 ####[facility] [address] [place], [address] RDW SD Normal 35.1-43.9 [facility] Comment on above: Result Comment: Canc elled via OM: Order cancelled - Patient discharged Performed By: #### L 100.0100, L500.2500 ####[facility] [address] [place], [address] WBC Normal 4.4-11.0 [facility] Comment on above: Result Comment: Canc elled via OM: Order cancelled - Patient discharged Performed By: #### L 100.0100, L500.2500 ####[facility] [address] [place], [address] Office Visiton 01-27-2025 Follow-up visit [id number] Kathleen Villa 1995 F Date Provider Department Center 01/27/2025 233-MISHEL ORTEZ [facility] DE None Family History Problem Relation Age of Onset Anxiety disorder Mother Multiple sclerosis Father Psoriasis Father Family Status - Relation Status Age at Mother Alive Father Alive Level of Service:59999 SD OFFICE/OUTPATIENT ESTABLISHED MOD MDM 30 MIN Reason for Visit and Comments: Skin Lesion [[id number]] - (PKN) Normal [facility] Progress Noteon 01-27-2025 Progress Note DATE OF SERVICE: 01/27/2025 PATIENT NAME: Kathleen Villa : 1995 AGE: 29 y.o. CLINIC NUMBER: [id number] Visit type: Established patient Chief Complaint Patient [...] Adhesive? Yes- adhesives. Social History: Born/raised in [place]. Excessive sun exposure: Yes Used tanning beds: [...] )on 01-26-2025 BUN/CRE 7.8 RATIO Low 10-20 [facility] Comment on above: Performed By: #### L 100.0100, L500.2500 ####[facility] [address] [place], [address] Calcium [Mass/Vol] 8.5 mg/dL Normal 7.6-11.0 [facility] Comment on above: Performed By: #### L 100.0100, L500.2500 ####[facility] [address] [place], [address] Chloride [Moles/Vol] 97 mmol/L Low 98-108 [facility] Comment on above: Performed By: #### L 100.0100, L500.2500 ####[facility] [address] [place], [address] CO2 [Moles/Vol] 12.9 mmol/L Low 21.0-32.0 [facility] Comment on above: Performed By: #### L 100.0100, L500.2500 ####[facility] [address] [place], [address] Creatinine [Mass/Vol] 0.76 mg/dL Normal 0.70-1.20 [facility] Comment on above: Performed By: #### L 100.0100, L500.2500 ####[facility] [address] [place], [address] ECRCL 109.19 ml/min Normal 50-250 [facility] Comment on above: Performed By: #### L 100.0100, L500.2500 ####[facility] [address] [place], [address] GAP 24 High 5-15 [facility] Comment on above: Performed By: #### L 100.0100, L500.2500 ####[facility] [address] [place], [address] GFR/1.73 sq M.predicted among non-blacks MDRD (S/P/Bld) [Vol rate/Area] 109 mL/min/{1.73_m2} Normal >60 [facility] Comment on above: Result Comment: mL/m in/1.73m2 CKD-EPI Creatinine Equation (2020) Performed By: #### L 100.0100, L500.2500 ####[facility] [address] [place], [address] Glucose [Mass/Vol] 315 mg/dL High 70-99 [facility] Comment on above: Performed By: #### L 100.0100, L500.2500 ####[facility] [address] [place], [address] Potassium [Moles/Vol] 3.0 mmol/L Low 3.3-5.1 [facility] Comment on above: Performed By: #### L 100.0100, L500.2500 ####[facility] [address] [place], [address] Sodium [Moles/Vol] 133 mmol/L Normal 133-145 [facility] Comment on above: Performed By: #### L 100.0100, L500.2500 ####[facility] [address] [place], [address] Urea nitrogen [Mass/Vol] 6 mg/dL Normal 4-19 [facility] Comment on above: Performed By: #### L 100.0100, L500.2500 ####[facility] [address] [place], [address] Bedside Glucoseon 01-26-2024 FINGERSTICK GLU 328 mg/dL High 74-106 [facility] Comment on above: Result Comment: EDGAR GEMENT OF PATIENT CARE PER NURSING PROTOCOL Performed By: #### L 501.080 ####[facility] [address] [place], [address] FINGERSTICK GLU 306 mg/dL High 74-106 [facility] Comment on above: Result Comment: EDGAR GEMENT OF PATIENT CARE PER NURSING PROTOCOL Performed By: #### L 501.080 ####[facility] [address] [place], [address] CBC W/Diff, Automatedon 06-0 Absolute Lymph 1.50 X10 3/uL Normal 0.83-4.51 [facility] Comment on above: Performed By: #### L 100.0100, L500.2500 ####[facility] [address] [place], [address] Absolute Neut 13.5 X10 3/uL High 2.0-7.7 [facility] Comment on above: Performed By: #### L 100.0100, L500.2500 ####[facility] [address] [place], [address] Basophils/100 WBC (Bld) 0.3 % Normal 0-1 [facility] Comment on above: Performed By: #### L 100.0100, L500.2500 ####[facility] [address] [place], [address] Eosinophils/100 WBC (Bld) 0.0 % Normal 0-5 [facility] Comment on above: Performed By: #### L 100.0100, L500.2500 ####[facility] [address] [place], [address] Erythrocyte distribution width (RBC) [Ratio] 13.1 % Normal 11.6-14.6 [facility] Comment on above: Performed By: #### L 100.0100, L500.2500 ####[facility] [address] [place], [address] Hematocrit (Bld) [Volume fraction] 38.8 % Normal 37-47 [facility] Comment on above: Performed By: #### L 100.0100, L500.2500 ####[facility] [address] [place], [address] Hemoglobin (Bld) [Mass/Vol] 13.4 g/dL Normal 12.0-15.0 [facility] Comment on above: Performed By: #### L 100.0100, L500.2500 ####[facility] [address] [place], [address] IG% 1.300 High 0.0-0.9 [facility] Comment on above: Result Comment: IG% - Immature Granulocytes (promyelocytes, myelocytes andmetamyelocytes) > 1% indicates that a LEFT SHIFT is Present. Performed By: #### L 100.0100, L500.2500 ####[facility] [address] [place], [address] Lymphocytes/100 WBC (Bld) 9.3 % Low 19-41 [facility] Comment on above: Performed By: #### L 100.0100, L500.2500 ####[facility] [facility] [address] [place], [address] MCH (RBC) [Entitic mass] 30.0 pg Normal 27.0-32.0 [facility] Comment on above: Performed By: #### L 100.0100, L500.2500 ####[facility] [address] [place], [address] MCHC (RBC) [Mass/Vol] 34.5 g/dL Normal 32-36 [facility] Comment on above: Performed By: #### L 100.0100, L500.2500 ####[facility] [address] [place], [address] MCV (RBC) [Entitic vol] 86.8 fL Normal 81-99 [facility] Comment on above: Performed By: #### L 100.0100, L500.2500 ####[facility] [address] [place], [address] Monocytes/100 WBC (Bld) 5.2 % Normal 0-10 [facility] Comment on above: Performed By: #### L 100.0100, L500.2500 ####[facility] [address] [place], [address] Neutrophils/100 WBC (Bld) 83.9 % High 47-70 [facility] Comment on above: Performed By: #### L 100.0100, L500.2500 ####[facility] [address] [place], [address] Nucleated RBC (Bld) [#/Vol] 0 10*3/uL Normal 0-5 [facility] Comment on above: Performed By: #### L 100.0100, L500.2500 ####[facility] [address] [place], [address] Platelet mean volume (Bld) [Entitic vol] 11.5 fL Normal 6.2-12.0 [facility] Comment on above: Performed By: #### L 100.0100, L500.2500 ####[facility] [address] [place], [address] Platelets (Bld) [#/Vol] 169 10*3/uL Normal 150-450 [facility] Comment on above: Performed By: #### L 100.0100, L500.2500 ####[facility] [address] [place], [address] RBC (Bld) [#/Vol] 4.47 10*6/uL Normal 4.2-5.4 [facility] Comment on above: Performed By: #### L 100.0100, L500.2500 ####[facility] [address] [place], [address] RDW SD 41.1 fl Normal 35.1-43.9 [facility] Comment on above: Performed By: #### L 100.0100, L500.2500 ####[facility] [address] [place], [address] WBC (Bld) [#/Vol] 16.1 10*3/uL High 4.4-11.0 [facility] Comment on above: Performed By: #### L 100.0100, L500.2500 ####[facility] [address] [place], [address] Discharge Instructionon 06-0 Discharge Instruction Normal [facility] Basic Metabolic Profile (BMP )on 01-25-2025 BUN/CRE 8.0 RATIO Low 10-20 [facility] Comment on above: Performed By: #### L 100.0100, L500.2500 ####[facility] [address] [place], [address] Calcium [Mass/Vol] 8.1 mg/dL Normal 7.6-11.0 [facility] Comment on above: Performed By: #### L 100.0100, L500.2500 ####[facility] [address] [place], [address] Chloride [Moles/Vol] 100 mmol/L Normal 98-108 [facility] Comment on above: Performed By: #### L 100.0100, L500.2500 ####[facility] [address] [place], [address] CO2 [Moles/Vol] 14.7 mmol/L Low 21.0-32.0 [facility] Comment on above: Performed By: #### L 100.0100, L500.2500 ####[facility] [address] [place], [address] Creatinine [Mass/Vol] 0.66 mg/dL Low 0.70-1.20 [facility] Comment on above: Performed By: #### L 100.0100, L500.2500 ####[facility] [address] [place], [address] ECRCL 125.73 ml/min Normal 50-250 [facility] Comment on above: Performed By: #### L 100.0100, L500.2500 ####[facility] [address] [place], [address] GAP 22 High 5-15 [facility] Comment on above: Performed By: #### L 100.0100, L500.2500 ####[facility] [address] [place], [address] GFR/1.73 sq M.predicted among non-blacks MDRD (S/P/Bld) [Vol rate/Area] 121 mL/min/{1.73_m2} Normal >60 [facility] Comment on above: Result Comment: mL/m in/1.73m2 CKD-EPI Creatinine Equation (2020) Performed By: #### L 100.0100, L500.2500 ####[facility] [address] [place], [address] Glucose [Mass/Vol] 287 mg/dL High 70-99 [facility] Comment on above: Performed By: #### L 100.0100, L500.2500 ####[facility] [address] [place], [address] Potassium [Moles/Vol] 2.9 mmol/L Low 3.3-5.1 [facility] Comment on above: Performed By: #### L 100.0100, L500.2500 ####[facility] [address] [place], [address] Sodium [Moles/Vol] 136 mmol/L Normal 133-145 [facility] Comment on above: Performed By: #### L 100.0100, L500.2500 ####[facility] [address] [place], [address] Urea nitrogen [Mass/Vol] 5 mg/dL Normal 4-19 [facility] Comment on above: Performed By: #### L 100.0100, L500.2500 ####[facility] [address] [place], [address] Bedside Glucoseon --2024 FINGERSTICK GLU 352 mg/dL High 74-106 [facility] Comment on above: Result Comment: EDGAR GEMENT OF PATIENT CARE PER NURSING PROTOCOL Performed By: #### L 501.080 ####[facility] [address] [place], [address] FINGERSTICK GLU 220 mg/dL High 74-106 [facility] Comment on above: Result Comment: EDGAR GEMENT OF PATIENT CARE PER NURSING PROTOCOL Performed By: #### L 501.080 ####[facility] [address] [place], [address] CBC W/Diff, Automatedon 05-3 Absolute Lymph 1.08 X10 3/uL Normal 0.83-4.51 [facility] Comment on above: Performed By: #### L 100.0100, L500.2500 ####[facility] [address] [place], [address] Absolute Neut 19.8 X10 3/uL High 2.0-7.7 [facility] Comment on above: Performed By: #### L 100.0100, L500.2500 ####[facility] [address] [place], [address] Basophils/100 WBC (Bld) 0.2 % Normal 0-1 [facility] Comment on above: Performed By: #### L 100.0100, L500.2500 ####[facility] [address] [place], [address] Eosinophils/100 WBC (Bld) 0.0 % Normal 0-5 [facility] Comment on above: Performed By: #### L 100.0100, L500.2500 ####[facility] [address] [place], [address] Erythrocyte distribution width (RBC) [Ratio] 12.9 % Normal 11.6-14.6 [facility] Comment on above: Performed By: #### L 100.0100, L500.2500 ####[facility] [address] [place], [address] Hematocrit (Bld) [Volume fraction] 32.9 % Low 37-47 [facility] Comment on above: Performed By: #### L 100.0100, L500.2500 ####[facility] [address] [place], [address] Hemoglobin (Bld) [Mass/Vol] 11.3 g/dL Low 12.0-15.0 [facility] Comment on above: Performed By: #### L 100.0100, L500.2500 ####[facility] [address] [place], [address] IG% 1.100 High 0.0-0.9 [facility] Comment on above: Result Comment: IG% - Immature Granulocytes (promyelocytes, myelocytes andmetamyelocytes) > 1% indicates that a LEFT SHIFT is Present. Performed By: #### L 100.0100, L500.2500 ####[facility] [address] [place], [address] Lymphocytes/100 WBC (Bld) 4.8 % Low 19-41 [facility] Comment on above: Performed By: #### L 100.0100, L500.2500 ####[facility] [address] [place], [address] MCH (RBC) [Entitic mass] 29.7 pg Normal 27.0-32.0 [facility] Comment on above: Performed By: #### L 100.0100, L500.2500 ####[facility] [address] [place], [address] MCHC (RBC) [Mass/Vol] 34.3 g/dL Normal 32-36 [facility] Comment on above: Performed By: #### L 100.0100, L500.2500 ####[facility] [address] [place], [address] MCV (RBC) [Entitic vol] 86.6 fL Normal 81-99 [facility] Comment on above: Performed By: #### L 100.0100, L500.2500 ####[facility] [address] [place], [address] Monocytes/100 WBC (Bld) 6.8 % Normal 0-10 [facility] Comment on above: Performed By: #### L 100.0100, L500.2500 ####[facility] [address] [place], [address] Neutrophils/100 WBC (Bld) 87.1 % High 47-70 [facility] Comment on above: Performed By: #### L 100.0100, L500.2500 ####[facility] [address] [place], [address] Nucleated RBC (Bld) [#/Vol] 0 10*3/uL Normal 0-5 [facility] Comment on above: Performed By: #### L 100.0100, L500.2500 ####[facility] [address] [place], [address] Platelet mean volume (Bld) [Entitic vol] 12.0 fL Normal 6.2-12.0 [facility] Comment on above: Performed By: #### L 100.0100, L500.2500 ####[facility] [address] [place], [address] Platelets (Bld) [#/Vol] 129 10*3/uL Low 150-450 [facility] Comment on above: Performed By: #### L 100.0100, L500.2500 ####[facility] [address] [place], [address] RBC (Bld) [#/Vol] 3.80 10*6/uL Low 4.2-5.4 [facility] Comment on above: Performed By: #### L 100.0100, L500.2500 ####[facility] [address] [place], [address] RDW SD 40.6 fl Normal 35.1-43.9 [facility] Comment on above: Performed By: #### L 100.0100, L500.2500 ####[facility] [address] [place], [address] WBC (Bld) [#/Vol] 22.7 10*3/uL High 4.4-11.0 [facility] Comment on above: Performed By: #### L 100.0100, L500.2500 ####[facility] [address] [place], [address] Magnesiumon 01-25-2025 Magnesium [Mass/Vol] 1.6 mg/dL Normal 1.5-2.2 [facility] Comment on above: Performed By: #### L 501.2300, L501.5200 ####[facility] [address] [place], [address] Phosphoruson 01-25-2025 Phosphate [Mass/Vol] 2.1 mg/dL Low 2.7-4.5 [facility] Comment on above: Performed By: #### L 501.2300, L501.5200 ####[facility] [address] [place], [address] Basic Metabolic Profile (BMP )on 01-24-2025 BUN/CRE 6.3 RATIO Low 10-20 [facility] Comment on above: Performed By: #### L 500.2500 ####[facility] [address] [place], [address] Calcium [Mass/Vol] 7.6 mg/dL Normal 7.6-11.0 [facility] Comment on above: Performed By: #### L 500.2500 ####[facility] [address] [place], [address] Chloride [Moles/Vol] 111 mmol/L High 98-108 [facility] Comment on above: Performed By: #### L 500.2500 ####[facility] [address] [place], [address] CO2 [Moles/Vol] 18.8 mmol/L Low 21.0-32.0 [facility] Comment on above: Performed By: #### L 500.2500 ####[facility] [address] [place], [address] Creatinine [Mass/Vol] 0.64 mg/dL Low 0.70-1.20 [facility] Comment on above: Performed By: #### L 500.2500 ####[facility] [address] [place], [address] ECRCL 129.66 ml/min Normal 50-250 [facility] Comment on above: Performed By: #### L 500.2500 ####[facility] [address] [place], [address] GAP 6 Normal 5-15 [facility] Comment on above: Performed By: #### L 500.2500 ####[facility] [address] [place], [address] GFR/1.73 sq M.predicted among non-blacks MDRD (S/P/Bld) [Vol rate/Area] 122 mL/min/{1.73_m2} Normal >60 [facility] Comment on above: Result Comment: mL/m in/1.73m2 CKD-EPI Creatinine Equation (2020) Performed By: #### L 500.2500 ####[facility] [address] [place], [address] Glucose [Mass/Vol] 182 mg/dL High 70-99 [facility] Comment on above: Performed By: #### L 500.2500 ####[facility] [address] [place], [address] Potassium [Moles/Vol] 3.9 mmol/L Normal 3.3-5.1 [facility] Comment on above: Performed By: #### L 500.2500 ####[facility] [address] [place], [address] Sodium [Moles/Vol] 136 mmol/L Normal 133-145 [facility] Comment on above: Performed By: #### L 500.2500 ####[facility] [address] [place], [address] Urea nitrogen [Mass/Vol] 4 mg/dL Normal 4-19 [facility] Comment on above: Performed By: #### L 500.2500 ####[facility] [address] [place], [address] CO2 [Moles/Vol] 9.9 mmol/L Invalid Interpretation Code 21.0-32.0 [facility] Comment on above: Order Comment: Call MD [...] by same. Performed By: #### L 500.2500 ####[facility] [address] [place], [place], [phone] BUN/CRE 8.6 RATIO Low 10-20 [facility] Comment on above: Order Comment: Call with results STAT Performed By: #### L 500.2500 ####[facility] [address] [place], [place], [phone] Calcium [Mass/Vol] 7.8 mg/dL Normal 7.6-11.0 [facility] Comment on above: Order Comment: Call with results STAT Performed By: #### L 500.2500 ####[facility] [address] [place], [address] Chloride [Moles/Vol] 113 mmol/L High 98-108 [facility] Comment on above: Order Comment: Call with results STAT Performed By: #### L 500.2500 ####[facility] [address] [place], [address] CO2 [Moles/Vol] 18.6 mmol/L Low 21.0-32.0 [facility] Comment on above: Order Comment: Call MD with results STAT Performed By: #### L 500.2500 ####[facility] [address] [place], [address] Creatinine [Mass/Vol] 0.65 mg/dL Low 0.70-1.20 [facility] Comment on above: Order Comment: Call MD with results STAT Performed By: #### L 500.2500 ####[facility] [address] [place], [address] ECRCL 127.66 ml/min Normal 50-250 [facility] Comment on above: Order Comment: Call MD with results STAT Performed By: #### L 500.2500 ####[facility] [address] [place], [address] GAP 9 Normal 5-15 [facility] Comment on above: Order Comment: Call MD with results STAT Performed By: #### L 500.2500 ####[facility] [address] [place], [address] GFR/1.73 sq M.predicted among non-blacks MDRD (S/P/Bld) [Vol rate/Area] 121 mL/min/{1.73_m2} Normal >60 [facility] Comment on above: Order Comment: Call MD with results STAT Result Comment: mL/m in/1.73m2 CKD-EPI Creatinine Equation (2020) Performed By: #### L 500.2500 ####[facility] [address] [place], [address] Glucose [Mass/Vol] 121 mg/dL High 70-99 [facility] Comment on above: Order Comment: Call MD with results STAT Performed By: #### L 500.2500 ####[facility] [address] [place], [address] Potassium [Moles/Vol] 2.9 mmol/L Low 3.3-5.1 [facility] Comment on above: Order Comment: Call MD with results STAT Performed By: #### L 500.2500 ####[facility] [address] [place], [address] Sodium [Moles/Vol] 141 mmol/L Normal 133-145 [facility] Comment on above: Order Comment: Call MD with results STAT Performed By: #### L 500.2500 ####[facility] [address] [place], [address] Urea nitrogen [Mass/Vol] 6 mg/dL Normal 4-19 [facility] Comment on above: Order Comment: Call MD with results STAT Performed By: #### L 500.2500 ####[facility] [address] [place], [address] Bedside Glucoseon 01-24-2025 FINGERSTICK GLU 304 mg/dL High 74-106 [facility] Comment on above: Result Comment: EDGAR GEMENT OF PATIENT CARE PER NURSING PROTOCOL Performed By: #### L 501.080 ####[facility] [address] [place], [address] FINGERSTICK GLU 239 mg/dL High -[address] [place] [address] Comment on above: Result Comment: EDGAR GEMENT OF PATIENT CARE PER NURSING PROTOCOL Performed By: #### L 501.080 ####[facility] [address] [place], [address] FINGERSTICK GLU 400 mg/dL High -106 [facility] Comment on above: Result Comment: EDGAR GEMENT OF PATIENT CARE PER NURSING PROTOCOL Performed By: #### L 501.080 ####[facility] [address] [place], [address] FINGERSTICK GLU 309 mg/dL High 74-106 [facility] Comment on above: Result Comment: EDGAR GEMENT OF PATIENT CARE PER NURSING PROTOCOL Performed By: #### L 501.080 ####[facility] [address] [place], [address] FINGERSTICK GLU 261 mg/dL High 74-106 [facility] Comment on above: Result Comment: EDGAR GEMENT OF PATIENT CARE PER NURSING PROTOCOL Performed By: #### L 501.080 ####[facility] [address] [place], [address] FINGERSTICK GLU 129 mg/dL High 74-106 [facility] Comment on above: Result Comment: EDGAR GEMENT OF PATIENT CARE PER NURSING PROTOCOL Performed By: #### L 501.080 ####[facility] [address] [place], [address] FINGERSTICK GLU 177 mg/dL High 74-106 [facility] Comment on above: Result Comment: EDGAR GEMENT OF PATIENT CARE PER NURSING PROTOCOL Performed By: #### L 501.080 ####[facility] [address] [place], [address] FINGERSTICK GLU 167 mg/dL High 74-106 [facility] Comment on above: Result Comment: EDGAR GEMENT OF PATIENT CARE PER NURSING PROTOCOL Performed By: #### L 501.080 ####[facility] [address] [place], [address] FINGERSTICK GLU 172 mg/dL High 74-106 [facility] [facility] Comment on above: Result Comment: EDGAR GEMENT OF PATIENT CARE PER NURSING PROTOCOL Performed By: #### L 501.080 ####[facility] [address] [place], [address] FINGERSTICK GLU 156 mg/dL High 74-106 [facility] Comment on above: Result Comment: EDGAR GEMENT OF PATIENT CARE PER NURSING PROTOCOL Performed By: #### L 501.080 ####[facility] [address] [place], [address] FINGERSTICK GLU 123 mg/dL High 74-106 [facility] Comment on above: Result Comment: EDGAR GEMENT OF PATIENT CARE PER NURSING PROTOCOL Performed By: #### L 501.080 ####[facility] [address] [place], [address] FINGERSTICK GLU 97 mg/dL Normal 74-106 [facility] Comment on above: Result Comment: EDGAR GEMENT OF PATIENT CARE PER NURSING PROTOCOL Performed By: #### L 501.080 ####[facility] [address] [place], [address] FINGERSTICK GLU 115 mg/dL High 74-106 [facility] Comment on above: Result Comment: EDGAR GEMENT OF PATIENT CARE PER NURSING PROTOCOL Performed By: #### L 501.080 ####[facility] [address] [place], [address] FINGERSTICK GLU 143 mg/dL High -106 [facility] Comment on above: Result Comment: EDGAR GEMENT OF PATIENT CARE PER NURSING PROTOCOL Performed By: #### L 501.080 ####[facility] [address] [place], [address] CBC W/Diff, Automatedon 05-3 SMEAR COMMENT COMMENT Normal [facility] Comment on above: Result Comment: LYMP HOPENIA. Performed By: #### L 100.0100 ####[facility] [address] [place], [address] PLT EST MOD DEC Normal ADEQ [facility] Comment on above: Performed By: #### L 100.0100 ####[facility] [address] [place], [address] Basic Metabolic Profile (BMP )on 01-23-2025 BUN/CRE 11.7 RATIO Normal 10-20 [facility] Comment on above: Order Comment: Call MD with results STAT Performed By: #### L 500.2500 ####[facility] [address] [place], [address] Calcium [Mass/Vol] 7.7 mg/dL Normal 7.6-11.0 [facility] Comment on above: Order Comment: Call MD with results STAT Performed By: #### L 500.2500 ####[facility] [address] [place], [address] Chloride [Moles/Vol] 112 mmol/L High 98-108 [facility] Comment on above: Order Comment: Call MD with results STAT Performed By: #### L 500.2500 ####[facility] [address] [place], [address] CO2 [Moles/Vol] 16.8 mmol/L Low 21.0-32.0 [facility] Comment on above: Order Comment: Call MD with results STAT Performed By: #### L 500.2500 ####[facility] [address] [place], [address] Creatinine [Mass/Vol] 0.64 mg/dL Low 0.70-1.20 [facility] Comment on above: Order Comment: Call MD with results STAT Performed By: #### L 500.2500 ####[facility] [address] [place], [address] ECRCL 129.66 ml/min Normal 50-250 [facility] Comment on above: Order Comment: Call MD with results STAT Performed By: #### L 500.2500 ####[facility] [address] [place], [address] GAP 10 Normal 5-15 [facility] Comment on above: Order Comment: Call MD with results STAT Performed By: #### L 500.2500 ####[facility] [address] [place], [address] GFR/1.73 sq M.predicted among non-blacks MDRD (S/P/Bld) [Vol rate/Area] 122 mL/min/{1.73_m2} Normal >60 [facility] Comment on above: Order Comment: Call MD with results STAT Result Comment: mL/m in/1.73m2 CKD-EPI Creatinine Equation (2020) Performed By: #### L 500.2500 ####[facility] [address] [place], [address] Glucose [Mass/Vol] 150 mg/dL High 70-99 [facility] Comment on above: Order Comment: Call MD with results STAT Performed By: #### L 500.2500 ####[facility] [address] [place], [address] Potassium [Moles/Vol] 3.2 mmol/L Low 3.3-5.1 [facility] Comment on above: Order Comment: Call MD with results STAT Performed By: #### L 500.2500 ####[facility] [address] [place], [address] Sodium [Moles/Vol] 139 mmol/L Normal 133-145 [facility] Comment on above: Order Comment: Call MD with results STAT Performed By: #### L 500.2500 ####[facility] [address] [place], [address] Urea nitrogen [Mass/Vol] 8 mg/dL Normal 4-19 [facility] Comment on above: Order Comment: Call MD with results STAT Performed By: #### L 500.2500 ####[facility] [address] [place], [address] BUN/CRE 14.4 RATIO Normal 10-20 [facility] Comment on above: Order Comment: Call MD with results STAT Performed By: #### L 500.2500 ####[facility] [address] [place], [address] Calcium [Mass/Vol] 7.5 mg/dL Low 7.6-11.0 [facility] Comment on above: Order Comment: Call MD with results STAT Performed By: #### L 500.2500 ####[facility] [address] [place], [address] Chloride [Moles/Vol] 112 mmol/L High 98-108 [facility] Comment on above: Order Comment: Call MD with results STAT Performed By: #### L 500.2500 ####[facility] [address] [place], [address] CO2 [Moles/Vol] 13.6 mmol/L Low 21.0-32.0 [facility] Comment on above: Order Comment: Call MD with results STAT Performed By: #### L 500.2500 ####[facility] [address] [place], [address] Creatinine [Mass/Vol] 0.69 mg/dL Low 0.70-1.20 [facility] Comment on above: Order Comment: Call MD with results STAT Performed By: #### L 500.2500 ####[facility] [address] [place], [address] ECRCL 120.26 ml/min Normal 50-250 [facility] Comment on above: Order Comment: Call MD with results STAT Performed By: #### L 500.2500 ####[facility] [address] [place], [address] GAP 13 Normal 5-15 [facility] Comment on above: Order Comment: Call MD with results STAT Performed By: #### L 500.2500 ####[facility] [address] [place], [address] GFR/1.73 sq M.predicted among non-blacks MDRD (S/P/Bld) [Vol rate/Area] 120 mL/min/{1.73_m2} Normal >60 [facility] Comment on above: Order Comment: Call MD with results STAT Result Comment: mL/m in/1.73m2 CKD-EPI Creatinine Equation (2020) Performed By: #### L 500.2500 ####[facility] [address] [place], [address] Glucose [Mass/Vol] 139 mg/dL High 70-99 [facility] Comment on above: Order Comment: Call MD with results STAT Performed By: #### L 500.2500 ####[facility] [address] [place], [address] Potassium [Moles/Vol] 3.4 mmol/L Normal 3.3-5.1 [facility] Comment on above: Order Comment: Call MD with results STAT Performed By: #### L 500.2500 ####[facility] [address] [place], [address] Sodium [Moles/Vol] 139 mmol/L Normal 133-145 [facility] Comment on above: Order Comment: Call MD with results STAT Performed By: #### L 500.2500 ####[facility] [address] [place], [address] Urea nitrogen [Mass/Vol] 10 mg/dL Normal 4-19 [facility] Comment on above: Order Comment: Call MD with results STAT Performed By: #### L 500.2500 ####[facility] [address] [place], [address] BUN/CRE 16.3 RATIO Normal 10-20 [facility] Comment on above: Order Comment: Call MD with results STAT Performed By: #### L 500.2500 ####[facility] [address] [place], [address] Calcium [Mass/Vol] 7.6 mg/dL Normal 7.6-11.0 [facility] Comment on above: Order Comment: Call MD with results STAT Performed By: #### L 500.2500 ####[facility] [address] [place], [address] Chloride [Moles/Vol] 110 mmol/L High 98-108 [facility] Comment on above: Order Comment: Call MD with results STAT Performed By: #### L 500.2500 ####[facility] [address] [place], [address] CO2 [Moles/Vol] 12.5 mmol/L Low 21.0-32.0 [facility] Comment on above: Order Comment: Call MD with results STAT Performed By: #### L 500.2500 ####[facility] [address] [place], [address] Creatinine [Mass/Vol] 0.72 mg/dL Normal 0.70-1.20 [facility] Comment on above: Order Comment: Call MD with results STAT Performed By: #### L 500.2500 ####[facility] [address] [place], [address] ECRCL 115.25 ml/min Normal 50-250 [facility] Comment on above: Order Comment: Call MD with results STAT Performed By: #### L 500.2500 ####[facility] [address] [place], [address] GAP 16 High 5-15 [facility] Comment on above: Order Comment: Call MD with results STAT Performed By: #### L 500.2500 ####[facility] [address] [place], [address] GFR/1.73 sq M.predicted among non-blacks MDRD (S/P/Bld) [Vol rate/Area] 115 mL/min/{1.73_m2} Normal >60 [facility] Comment on above: Order Comment: Call MD with results STAT Result Comment: mL/m in/1.73m2 CKD-EPI Creatinine Equation (2020) Performed By: #### L 500.2500 ####[facility] [address] [place], [address] Glucose [Mass/Vol] 176 mg/dL High 70-99 [facility] Comment on above: Order Comment: Call MD with results STAT Performed By: #### L 500.2500 ####[facility] [address] [place], [address] Potassium [Moles/Vol] 3.7 mmol/L Normal 3.3-5.1 [facility] Comment on above: Order Comment: Call MD with results STAT Performed By: #### L 500.2500 ####[facility] [address] [place], [address] Sodium [Moles/Vol] 138 mmol/L Normal 133-145 [facility] Comment on above: Order Comment: Call MD with results STAT Performed By: #### L 500.2500 ####[facility] [address] [place], [address] Urea nitrogen [Mass/Vol] 12 mg/dL Normal 4-19 [facility] Comment on above: Order Comment: Call MD with results STAT Performed By: #### L 500.2500 ####[facility] [address] [place], [address] BUN/CRE 16.2 RATIO Normal 10-20 [facility] Comment on above: Order Comment: Call MD with results STAT Performed By: #### L 500.2500 ####[facility] [address] [place], [address] Calcium [Mass/Vol] 7.6 mg/dL Normal 7.6-11.0 [facility] Comment on above: Order Comment: Call MD with results STAT Performed By: #### L 500.2500 ####[facility] [address] [place], [address] Chloride [Moles/Vol] 111 mmol/L High 98-108 [facility] Comment on above: Order Comment: Call MD with results STAT Performed By: #### L 500.2500 ####[facility] [address] [place], [address] CO2 [Moles/Vol] 11.0 mmol/L Low 21.0-32.0 [facility] Comment on above: Order Comment: Call MD with results STAT Performed By: #### L 500.2500 ####[facility] [address] [place], [address] Creatinine [Mass/Vol] 0.81 mg/dL Normal 0.70-1.20 [facility] Comment on above: Order Comment: Call MD with results STAT Performed By: #### L 500.2500 ####[facility] [address] [place], [address] ECRCL 102.45 ml/min Normal 50-250 [facility] Comment on above: Order Comment: Call MD with results STAT Performed By: #### L 500.2500 ####[facility] [address] [place], [address] GAP 18 High 5-15 [facility] Comment on above: Order Comment: Call MD with results STAT Performed By: #### L 500.2500 ####[facility] [address] [place], [address] GFR/1.73 sq M.predicted among non-blacks MDRD (S/P/Bld) [Vol rate/Area] 100 mL/min/{1.73_m2} Normal >60 [facility] Comment on above: Order Comment: Call MD with results STAT Result Comment: mL/m in/1.73m2 CKD-EPI Creatinine Equation (2020) Performed By: #### L 500.2500 ####[facility] [address] [place], [address] Glucose [Mass/Vol] 209 mg/dL High 70-99 [facility] Comment on above: Order Comment: Call MD with results STAT Performed By: #### L 500.2500 ####[facility] [address] [place], [address] Potassium [Moles/Vol] 4.5 mmol/L Normal 3.3-5.1 [facility] Comment on above: Order Comment: Call MD with results STAT Result Comment: Hemo lysis present, Results??could be affected.?? Performed By: #### L 500.2500 ####[facility] [address] [place], [address] Sodium [Moles/Vol] 140 mmol/L Normal 133-145 [facility] Comment on above: Order Comment: Call MD with results STAT Performed By: #### L 500.2500 ####[facility] [address] [place], [address] Urea nitrogen [Mass/Vol] 13 mg/dL Normal 4-19 [facility] Comment on above: Order Comment: Call MD with results STAT Performed By: #### L 500.2500 ####[facility] [address] [place], [address] BUN/CRE 21.2 RATIO High 10-20 [facility] Comment on above: Order Comment: Call MD with results STAT Performed By: #### L 500.2500 ####[facility] [address] [place], [address] Calcium [Mass/Vol] 8.4 mg/dL Normal 7.6-11.0 [facility] Comment on above: Order Comment: Call MD with results STAT Performed By: #### L 500.2500 ####[facility] [address] [place], [address] Chloride [Moles/Vol] 102 mmol/L Normal 98-108 [facility] Comment on above: Order Comment: Call MD with results STAT Performed By: #### L 500.2500 ####[facility] [address] [place], [address] CO2 [Moles/Vol] 7.2 mmol/L Invalid Interpretation Code 21.0-32.0 [facility] Comment on above: Order Comment: Call MD with results STAT Result Comment: Crit ical Result(s) Called at: by:??Results read back bysame.Critical Result(s) Called at:0104 by: ROSLYN HAVEN TO LINDAFORREST??Results read back by same. Performed By: #### L 500.2500 ####[facility] [address] [place], [address] Creatinine [Mass/Vol] 1.01 mg/dL Normal 0.70-1.20 [facility] Comment on above: Order Comment: Call MD with results STAT Performed By: #### L 500.2500 ####[facility] [address] [place], [address] ECRCL 82.16 ml/min Normal 50-250 [facility] Comment on above: Order Comment: Call MD with results STAT Performed By: #### L 500.2500 ####[facility] [address] [place], [address] GAP 26 High 5-15 [facility] Comment on above: Order Comment: Call MD with results STAT Performed By: #### L 500.2500 ####[facility] [address] [place], [address] GFR/1.73 sq M.predicted among non-blacks MDRD (S/P/Bld) [Vol rate/Area] 77 mL/min/{1.73_m2} Normal >60 [facility] Comment on above: Order Comment: Call MD with results STAT Result Comment: mL/m in/1.73m2 CKD-EPI Creatinine Equation (2020) Performed By: #### L 500.2500 ####[facility] [address] [place], [address] Glucose [Mass/Vol] 330 mg/dL High 70-99 [facility] Comment on above: Order Comment: Call MD with results STAT Performed By: #### L 500.2500 ####[facility] [address] [place], [address] Potassium [Moles/Vol] 4.4 mmol/L Normal 3.3-5.1 [facility] Comment on above: Order Comment: Call MD with results STAT Result Comment: Hemo lysis present, Results??could be affected.?? Performed By: #### L 500.2500 ####[facility] [address] [place], [address] Sodium [Moles/Vol] 135 mmol/L Normal 133-145 [facility] Comment on above: Order Comment: Call MD with results STAT Performed By: #### L 500.2500 ####[facility] [address] [place], [address] Urea nitrogen [Mass/Vol] 21 mg/dL High 4-19 [facility] Comment on above: Order Comment: Call MD with results STAT Performed By: #### L 500.2500 ####[facility] [address] [place], [address] Bedside Glucoseon 01-23-2025 FINGERSTICK GLU 150 mg/dL High 74-106 [facility] Comment on above: Result Comment: EDGAR GEMENT OF PATIENT CARE PER NURSING PROTOCOL Performed By: #### L 501.080 ####[facility] [address] [place], [address] FINGERSTICK GLU 170 mg/dL High 74-106 [facility] Comment on above: Result Comment: EDGAR GEMENT OF PATIENT CARE PER NURSING PROTOCOL Performed By: #### L 501.080 ####[facility] [address] [place], [address] FINGERSTICK GLU 134 mg/dL High 74-106 [facility] Comment on above: Result Comment: EDGAR GEMENT OF PATIENT CARE PER NURSING PROTOCOL Performed By: #### L 501.080 ####[facility] [address] [place], [address] FINGERSTICK GLU 134 mg/dL High 74-106 [facility] Comment on above: Result Comment: EDGAR GEMENT OF PATIENT CARE PER NURSING PROTOCOL Performed By: #### L 501.080 ####[facility] [address] [place], [address] FINGERSTICK GLU 145 mg/dL High 74-106 [facility] Comment on above: Result Comment: EDGAR GEMENT OF PATIENT CARE PER NURSING PROTOCOL Performed By: #### L 501.080 ####[facility] [address] [place], [address] FINGERSTICK GLU 136 mg/dL High 74-106 [facility] Comment on above: Result Comment: EDGAR GEMENT OF PATIENT CARE PER NURSING PROTOCOL Performed By: #### L 501.080 ####[facility] [address] [place], [address] FINGERSTICK GLU 128 mg/dL High 74-106 [facility] Comment on above: Result Comment: EDGAR GEMENT OF PATIENT CARE PER NURSING PROTOCOL Performed By: #### L 501.080 ####[facility] [address] [place], [address] FINGERSTICK GLU 127 mg/dL High 74-106 [facility] Shaw Comment on above: Result Comment: EDGAR GEMENT OF PATIENT CARE PER NURSING PROTOCOL Performed By: #### L 501.080 ####[facility] [address] [place], [address] FINGERSTICK GLU 120 mg/dL High 74-106 [facility] Comment on above: Result Comment: EDGAR GEMENT OF PATIENT CARE PER NURSING PROTOCOL Performed By: #### L 501.080 ####[facility] [address] [place], [address] FINGERSTICK GLU 127 mg/dL High 74-106 [facility] Comment on above: Result Comment: EDGAR GEMENT OF PATIENT CARE PER NURSING PROTOCOL Performed By: #### L 501.080 ####[facility] [address] [place], [address] FINGERSTICK GLU 176 mg/dL High 74-106 [facility] Comment on above: Result Comment: EDGAR GEMENT OF PATIENT CARE PER NURSING PROTOCOL Performed By: #### L 501.080 ####[facility] [address] [place], [address] FINGERSTICK GLU 156 mg/dL High 74-106 [facility] Comment on above: Result Comment: EDGAR GEMENT OF PATIENT CARE PER NURSING PROTOCOL Performed By: #### L 501.080 ####[facility] [address] [place], [address] FINGERSTICK GLU 177 mg/dL High -106 [facility] Comment on above: Result Comment: EDGAR GEMENT OF PATIENT CARE PER NURSING PROTOCOL Performed By: #### L 501.080 ####[facility] [address] [place], [address] FINGERSTICK GLU 200 mg/dL High -106 [facility] Comment on above: Result Comment: EDGAR GEMENT OF PATIENT CARE PER NURSING PROTOCOL Performed By: #### L 501.080 ####[facility] [address] [place], [address] FINGERSTICK GLU 203 mg/dL High -106 [facility] Comment on above: Result Comment: EDGAR GEMENT OF PATIENT CARE PER NURSING PROTOCOL Performed By: #### L 501.080 ####[facility] [address] [place], [address] FINGERSTICK GLU 214 mg/dL High -106 [facility] Comment on above: Result Comment: EDGAR GEMENT OF PATIENT CARE PER NURSING PROTOCOL Performed By: #### L 501.080 ####[facility] [address] [place], [address] FINGERSTICK GLU 217 mg/dL High 74-106 [facility] Comment on above: Result Comment: EDGAR GEMENT OF PATIENT CARE PER NURSING PROTOCOL Performed By: #### L 501.080 ####[facility] [address] [place], [address] FINGERSTICK GLU 230 mg/dL High [address] [place] [address] Comment on above: Result Comment: EDGAR GEMENT OF PATIENT CARE PER NURSING PROTOCOL Performed By: #### L 501.080 ####[facility] [address] [place], [address] FINGERSTICK GLU 253 mg/dL High [address] [place] [address] Comment on above: Result Comment: EDGAR GEMENT OF PATIENT CARE PER NURSING PROTOCOL Performed By: #### L 501.080 ####[facility] [address] [place], [address] FINGERSTICK GLU 286 mg/dL High [address] [place] [address] Comment on above: Result Comment: EDGAR GEMENT OF PATIENT CARE PER NURSING PROTOCOL Performed By: #### L 501.080 ####[facility] [address] [place], [address] FINGERSTICK GLU 258 mg/dL High [address] [place] [address] Comment on above: Result Comment: EDGAR GEMENT OF PATIENT CARE PER NURSING PROTOCOL Performed By: #### L 501.080 ####[facility] [address] [place], [address] FINGERSTICK GLU 269 mg/dL High [address] [place] [address] Comment on above: Result Comment: EDGAR GEMENT OF PATIENT CARE PER NURSING PROTOCOL Performed By: #### L 501.080 ####[facility] [address] [place], [address] CBC W/Diff, Automatedon - SMEAR COMMENT SCANNED Normal [facility] Comment on above: Performed By: #### L 100.0100 ####[facility] [address] [place], [address] Basic Metabolic Profile (BMP )on 01-22-2025 BUN/CRE 21.4 RATIO High 10-20 [facility] Comment on above: Performed By: #### L 100.0100, L500.2500, L501.2450, L500.3400, L700.6800 ####[facility] [address] [place], [address] Calcium [Mass/Vol] 9.4 mg/dL Normal 7.6-11.0 [facility] Comment on above: Performed By: #### L 100.0100, L500.2500, L501.2450, L500.3400, L700.6800 ####[facility] [address] [place], [address] Chloride [Moles/Vol] 92 mmol/L Low 98-108 [facility] Comment on above: Performed By: #### L 100.0100, L500.2500, L501.2450, L500.3400, L700.6800 ####[facility] [address] [place], [address] CO2 [Moles/Vol] 6.3 mmol/L Invalid Interpretation Code 21.0-32.0 [facility] Comment on above: Result Comment: Crit ical Result(s) Called at: by:??Results read back bygeneral [facility].Critical Result(s) Called at: 2055 by: ROSLYN AYERS??Results read back by same. Performed By: #### L 100.0100, L500.2500, L501.2450, L500.3400, L700.6800 ####[facility] [address] [place], [address] Creatinine [Mass/Vol] 1.10 mg/dL Normal 0.70-1.20 [facility] Comment on above: Performed By: #### L 100.0100, L500.2500, L501.2450, L500.3400, L700.6800 ####[facility] [address] [place], [address] GAP 32 High 5-15 [facility] Comment on above: Performed By: #### L 100.0100, L500.2500, L501.2450, L500.3400, L700.6800 ####[facility] [address] [place], [address] GFR/1.73 sq M.predicted among non-blacks MDRD (S/P/Bld) [Vol rate/Area] 69 mL/min/{1.73_m2} Normal >60 [facility] Comment on above: Result Comment: mL/m in/1.73m2 CKD-EPI Creatinine Equation (2020) Performed By: #### L 100.0100, L500.2500, L501.2450, L500.3400, L700.6800 ####[facility] [address] [place], [address] Glucose [Mass/Vol] 507 mg/dL Invalid Interpretation Code 70-99 [facility] Comment on above: Result Comment: Crit ical Result(s) Called at: by:??Results read back bysame.Critical Result(s) Called at: 2055 by: ROSLYN AYERS??Results read back by same.Critical Result(s) Called at: by:??Results read back bysame. Performed By: #### L 100.0100, L500.2500, L501.2450, L500.3400, L700.6800 ####[facility] [address] [place], [address] Potassium [Moles/Vol] 4.7 mmol/L Normal 3.3-5.1 [facility] Comment on above: Performed By: #### L 100.0100, L500.2500, L501.2450, L500.3400, L700.6800 ####[facility] [address] [place], [address] Sodium [Moles/Vol] 130 mmol/L Low 133-145 [facility] Comment on above: Performed By: #### L 100.0100, L500.2500, L501.2450, L500.3400, L700.6800 ####[facility] [address] [place], [address] Urea nitrogen [Mass/Vol] 24 mg/dL High 4-19 [facility] Comment on above: Performed By: #### L 100.0100, L500.2500, L501.2450, L500.3400, L700.6800 ####[facility] [address] [place], [address] Bedside Glucoseon 01-22-2025 FINGERSTICK GLU 369 mg/dL High 74-106 [facility] Comment on above: Result Comment: EDGAR GEMENT OF PATIENT CARE PER NURSING PROTOCOL Performed By: #### L 501.080 ####[facility] [address] [place], [address] FINGERSTICK GLU > 500 Invalid Interpretation Code 74-106 [facility] Comment on above: Result Comment: Insu bill GivenMANAGEMENT OF PATIENT CARE PER NURSING PROTOCOL Performed By: #### L 501.080 ####[facility] [address] [place], [address] FINGERSTICK GLU 492 mg/dL Invalid Interpretation Code 74-106 [facility] Comment on above: Result Comment: Dr Ej foreman FollowedMANAGEMENT OF PATIENT CARE PER NURSING PROTOCOL Performed By: #### L 501.080 ####[facility] [address] [place], [address] Beta-Hydroxbytyrateon 2024 BETA-HYDROXYBUT 6.8 mmol/L Normal 0.0-0.3 [facility] Comment on above: Performed By: #### L 501.6901 ####[facility] [address] [place], [address] CBC W/Diff, Automatedon 05- PLT EST SLT DEC Normal ADEQ [facility] Comment on above: Performed By: #### L 100.0100, L500.2500, L501.2450, L500.3400, L700.6800 ####[facility] [address] [place], [address] SMEAR COMMENT SCANNED Normal [facility] Comment on above: Performed By: #### L 100.0100, L500.2500, L501.2450, L500.3400, L700.6800 ####[facility] [address] [place], [address] Emergency Department Summary on 01-22-2025 Emergency Department Summary Normal [facility] H AND P Exam - Hospitaliston 01-22-2025 H&P Exam - Hospitalist Normal [facility] Lipaseon 01-22-2025 Lipase [Catalytic activity/Vol] 11 U/L Low 13-75 [facility] Comment on above: Result Comment: Sulma schmitz note:LIPASE revised reference range effective 22.New Lipase methodology. Expected to produce lower valuesthan the previous assay method.NEW Reference Range: 13 - 75 U/L Performed By: #### L 100.0100, L500.2500, L501.2450, L500.3400, L700.6800 ####[facility] [address] [place], [address] Liver Profileon 01-22-2025 Albumin [Mass/Vol] 4.6 g/dL Normal 3.5-5.0 [facility] Comment on above: Performed By: #### L 100.0100, L500.2500, L501.2450, L500.3400, L700.6800 ####[facility] [address] [place], [address] ALK PHOS 109 U/L High 35-104 [facility] Comment on above: Performed By: #### L 100.0100, L500.2500, L501.2450, L500.3400, L700.6800 ####[facility] [address] [place], [address] ALT [Catalytic activity/Vol] 11 U/L Normal <=34 [facility] Comment on above: Performed By: #### L 100.0100, L500.2500, L501.2450, L500.3400, L700.6800 ####[facility] [address] [place], [address] AST [Catalytic activity/Vol] 16 U/L Normal <=31 [facility] Comment on above: Performed By: #### L 100.0100, L500.2500, L501.2450, L500.3400, L700.6800 ####[facility] [address] [place], [address] Bilirubin [Mass/Vol] 0.96 mg/dL Normal 0.00-1.30 [facility] Comment on above: Performed By: #### L 100.0100, L500.2500, L501.2450, L500.3400, L700.6800 ####[facility] [address] [place], [address] Bilirubin.direct [Mass/Vol] 0.40 mg/dL High 0.00-0.30 [facility] Comment on above: Performed By: #### L 100.0100, L500.2500, L501.2450, L500.3400, L700.6800 ####[facility] [address] [place], [address] Globulin (S) [Mass/Vol] 3.3 g/dL Normal 2.2-4.2 [facility] Comment on above: Performed By: #### L 100.0100, L500.2500, L501.2450, L500.3400, L700.6800 ####[facility] [address] [place], [address] T PROT 7.9 g/dL Normal 5.9-8.4 [facility] Comment on above: Performed By: #### L 100.0100, L500.2500, L501.2450, L500.3400, L700.6800 ####[facility] [address] [place], [address] ,Serum,hCG Quali.on 01-22-2025 HCG, SERUM QUAL Negative Normal [facility] Comment on above: Performed By: #### L 100.0100, L500.2500, L501.2450, L500.3400, L700.6800 ####[facility] [address] [place], [address] Urinalysis, Completeon 01-22 WBC 0-5 SEEN Normal 0-5 [facility] Comment on above: Order Comment: CRITI CRISTINA VALUE CALLED TO ZION [facility]01/22/252058 Nguyen Lollo.RESULTS READ BACK BY SAME.CLEAN CATCH Performed By: #### L 400.0001 ####[facility] [address] [place], [address] RBC 0-5 SEEN Normal 0-5 [facility] Comment on above: Order Comment: CRITI CRISTINA VALUE CALLED TO ZION TEAL01/22/252058 Nguyen Lollo.RESULTS READ BACK BY SAME.CLEAN CATCH Performed By: #### L 400.0001 ####[facility] [address] [place], [address] BACTERIA 1+ /hpf Normal None Seen [facility] Comment on above: Order Comment: CRITI CRISTINA VALUE CALLED TO ZION TEAL01/22/252058 Nguyen Lollo.RESULTS READ BACK BY SAME.CLEAN CATCH Performed By: #### L 400.0001 ####[facility] [address] [place], [address] EPI,SQUAMOUS 0-5 SEEN Normal 5-10 [facility] Comment on above: Order Comment: CRITI CRISTINA VALUE CALLED TO ZION GUIDO01/22/252058 Nguyen Lollo.RESULTS READ BACK BY SAME.CLEAN CATCH Performed By: #### L 400.0001 ####[facility] [address] [place], [address] Mucus Ql (Urine sed) 0 SEEN Normal [facility] Comment on above: Order Comment: CRITI CRISTINA VALUE CALLED TO ZION GUIDO01/22/252058 Nguyen Lollo.RESULTS READ BACK BY SAME.CLEAN CATCH Performed By: #### L 400.0001 ####[facility] [address] [place], [address] Venous Blood Gason 5 Blood Gas Type ISABELLE Normal [facility] Comment on above: Performed By: #### L 9000.0810 ####[facility] [address] [place], [address] CO2 [Moles/Vol] 8 mmol/L Low 23-33 [facility] Comment on above: Performed By: #### L 9000.0810 ####[facility] [address] [place], [address] HCO3 (Bld) [Moles/Vol] 8 mmol/L Low 22-26 [facility] Comment on above: Performed By: #### L 9000.0810 ####[facility] [address] [place], [address] O2 Delivery Dev Not entered [facility] Comment on above: Performed By: #### L 9000.0810 ####[facility] [address] [place], [address] Read Back By Yes [facility] Comment on above: Performed By: #### L 9000.0810 ####[facility] [address] [place], [address] SITE Not entered Normal [facility] Comment on above: Performed By: #### L 9000.0810 ####[facility] [address] [place], [address] VBG BE -21 mmol/L Low -1.0-3.5 [facility] Comment on above: Performed By: #### L 9000.0810 ####[facility] [address] [place], [address] VBG pCO2 20.8 mmHg Low 41-51 [facility] Comment on above: Performed By: #### L 9000.0810 ####[facility] [address] [place], [address] VBG pH 7.17 Invalid Interpretation Code 7.32-7.42 [facility] Comment on above: Performed By: #### L 9000.0810 ####[facility] [address] [place], [address] VBG PO2 48 mmHg High 25-40 [facility] Comment on above: Performed By: #### L 9000.0810 ####[facility] [address] [place], [address] VBG SO2 74 High 50-70 [facility] Comment on above: Performed By: #### L 9000.0810 ####[facility] [address] [place], [address] Abdomen Single Viewon 2024 Abdomen Single View Normal [facility] Gastroenterology Visit Repor ton 01-08-2025 Gastroenterology Visit Report Normal [facility] CBC W/Diff, Automatedon -3 Absolute Lymph 1.70 X10 3/uL Normal 0.83-4.51 [facility] Comment on above: Performed By: #### L 501.2300, L100.0100, L500.4050 ####[facility] [address] [place], [address] Absolute Neut 7.3 X10 3/uL Normal 2.0-7.7 [facility] Comment on above: Performed By: #### L 501.2300, L100.0100, L500.4050 ####[facility] [address] [place], [address] Basophils/100 WBC (Bld) 0.5 % Normal 0-1 [facility] Comment on above: Performed By: #### L 501.2300, L100.0100, L500.4050 ####[facility] [address] [place], [address] Eosinophils/100 WBC (Bld) 0.6 % Normal 0-5 [facility] Comment on above: Performed By: #### L 501.2300, L100.0100, L500.4050 ####[facility] [address] [place], [address] Erythrocyte distribution width (RBC) [Ratio] 13.1 % Normal 11.6-14.6 [facility] Comment on above: Performed By: #### L 501.2300, L100.0100, L500.4050 ####[facility] [address] [place], [address] Hematocrit (Bld) [Volume fraction] 42.8 % Normal 37-47 [facility] Comment on above: Performed By: #### L 501.2300, L100.0100, L500.4050 ####[facility] [address] [place], [address] Hemoglobin (Bld) [Mass/Vol] 14.5 g/dL Normal 12.0-15.0 [facility] Comment on above: Performed By: #### L 501.2300, L100.0100, L500.4050 ####[facility] [address] [place], [address] IG% 0.900 Normal 0.0-0.9 [facility] Comment on above: Result Comment: IG% - Immature Granulocytes (promyelocytes, myelocytes andmetamyelocytes) > 1% indicates that a LEFT SHIFT is Present. Performed By: #### L 501.2300, L100.0100, L500.4050 ####[facility] [address] [place], [address] Lymphocytes/100 WBC (Bld) 17.6 % Low 19-41 [facility] Comment on above: Performed By: #### L 501.2300, L100.0100, L500.4050 ####[facility] [address] [place], [address] MCH (RBC) [Entitic mass] 29.5 pg Normal 27.0-32.0 [facility] Comment on above: Performed By: #### L 501.2300, L100.0100, L500.4050 ####[facility] [address] [place], [address] MCHC (RBC) [Mass/Vol] 33.9 g/dL Normal 32-36 [facility] Comment on above: Performed By: #### L 501.2300, L100.0100, L500.4050 ####[facility] [address] [place], [address] MCV (RBC) [Entitic vol] 87.2 fL Normal 81-99 [facility] Comment on above: Performed By: #### L 501.2300, L100.0100, L500.4050 ####[facility] [address] [place], [address] Monocytes/100 WBC (Bld) 5.3 % Normal 0-10 [facility] Comment on above: Performed By: #### L 501.2300, L100.0100, L500.4050 ####[facility] [address] [place], [address] Neutrophils/100 WBC (Bld) 75.1 % High 47-70 [facility] [facility] Comment on above: Performed By: #### L 501.2300, L100.0100, L500.4050 ####[facility] [address] [place], [address] Nucleated RBC (Bld) [#/Vol] 0 10*3/uL Normal 0-5 [facility] Comment on above: Performed By: #### L 501.2300, L100.0100, L500.4050 ####[facility] [address] [place], [address] Platelet mean volume (Bld) [Entitic vol] 12.4 fL High 6.2-12.0 [facility] Comment on above: Performed By: #### L 501.2300, L100.0100, L500.4050 ####[facility] [address] [place], [address] Platelets (Bld) [#/Vol] 149 10*3/uL Low 150-450 [facility] Comment on above: Performed By: #### L 501.2300, L100.0100, L500.4050 ####[facility] [address] [place], [address] RBC (Bld) [#/Vol] 4.91 10*6/uL Normal 4.2-5.4 [facility] Comment on above: Performed By: #### L 501.2300, L100.0100, L500.4050 ####[facility] [address] [place], [address] RDW SD 41.7 fl Normal 35.1-43.9 [facility] Comment on above: Performed By: #### L 501.2300, L100.0100, L500.4050 ####[facility] [address] [place], [address] WBC (Bld) [#/Vol] 9.7 10*3/uL Normal 4.4-11.0 [facility] Comment on above: Performed By: #### L 501.2300, L100.0100, L500.4050 ####[facility] [address] [place], [address] Comprehensive Metabolic Prof [facility] 12-25-2024 Albumin [Mass/Vol] 4.3 g/dL Normal 3.5-5.0 [facility] Comment on above: Performed By: #### L 501.2300, L100.0100, L500.4050 ####[facility] [address] [place], [address] Albumin/Globulin [Mass ratio] 1.6 {ratio} Normal 0.9-2.4 [facility] Comment on above: Performed By: #### L 501.2300, L100.0100, L500.4050 ####[facility] [address] [place], [address] ALK PHOS 78 U/L Normal 35-104 [facility] Comment on above: Performed By: #### L 501.2300, L100.0100, L500.4050 ####[facility] [address] [place], [address] ALT [Catalytic activity/Vol] 9 U/L Normal <=34 [facility] Comment on above: Performed By: #### L 501.2300, L100.0100, L500.4050 ####[facility] [address] [place], [address] AST [Catalytic activity/Vol] 14 U/L Normal <=31 [facility] Comment on above: Performed By: #### L 501.2300, L100.0100, L500.4050 ####[facility] [address] [place], [address] Bilirubin [Mass/Vol] 0.56 mg/dL Normal 0.00-1.30 [facility] Comment on above: Performed By: #### L 501.2300, L100.0100, L500.4050 ####[facility] [address] [place], [address] BUN/CRE 14.6 RATIO Normal 10-20 [facility] Comment on above: Performed By: #### L 501.2300, L100.0100, L500.4050 ####[facility] [address] [place], [address] Calcium [Mass/Vol] 9.3 mg/dL Normal 7.6-11.0 [facility] Comment on above: Performed By: #### L 501.2300, L100.0100, L500.4050 ####[facility] [address] [place], [address] Chloride [Moles/Vol] 100 mmol/L Normal 98-108 [facility] Comment on above: Performed By: #### L 501.2300, L100.0100, L500.4050 ####[facility] [address] [place], [address] CO2 [Moles/Vol] 19.3 mmol/L Low 21.0-32.0 [facility] Comment on above: Performed By: #### L 501.2300, L100.0100, L500.4050 ####[facility] [address] [place], [address] Creatinine [Mass/Vol] 0.75 mg/dL Normal 0.70-1.20 [facility] Comment on above: Performed By: #### L 501.2300, L100.0100, L500.4050 ####[facility] [address] [place], [address] GAP 13 Normal 5-15 [facility] Comment on above: Performed By: #### L 501.2300, L100.0100, L500.4050 ####[facility] [address] [place], [address] GFR/1.73 sq M.predicted among non-blacks MDRD (S/P/Bld) [Vol rate/Area] 110 mL/min/{1.73_m2} Normal >60 [facility] Comment on above: Result Comment: mL/m in/1.73m2 CKD-EPI Creatinine Equation (2020) Performed By: #### L 501.2300, L100.0100, L500.4050 ####[facility] [address] [place], [address] Globulin (S) [Mass/Vol] 2.7 g/dL Normal 2.2-4.2 [facility] Comment on above: Performed By: #### L 501.2300, L100.0100, L500.4050 ####[facility] [address] [place], [address] Glucose [Mass/Vol] 443 mg/dL High 70-99 [facility] Comment on above: Performed By: #### L 501.2300, L100.0100, L500.4050 ####[facility] [address] [place], [address] Potassium [Moles/Vol] 4.5 mmol/L Normal 3.3-5.1 [facility] Comment on above: Performed By: #### L 501.2300, L100.0100, L500.4050 ####[facility] [address] [place], [address] Sodium [Moles/Vol] 133 mmol/L Normal 133-145 [facility] Comment on above: Performed By: #### L 501.2300, L100.0100, L500.4050 ####[facility] [address] [place], [address] T PROT 7.0 g/dL Normal 5.9-8.4 [facility] Comment on above: Performed By: #### L 501.2300, L100.0100, L500.4050 ####[facility] [address] [place], [address] Urea nitrogen [Mass/Vol] 11 mg/dL Normal 4-19 [facility] Comment on above: Performed By: #### L 501.2300, L100.0100, L500.4050 ####[facility] [address] [place], [address] Phosphoruson 12-25-2024 Phosphate [Mass/Vol] 2.9 mg/dL Normal 2.7-4.5 [facility] Comment on above: Performed By: #### L 501.2300, L100.0100, L500.4050 ####[facility] [address] [place], [address] Basic Metabolic Profile (BMP )on 12-16-2024 BUN/CRE 10.1 RATIO Normal 10-20 [facility] Comment on above: Performed By: #### L 500.2500, L100.0100 ####[facility] [address] [place], [address] Calcium [Mass/Vol] 8.4 mg/dL Normal 7.6-11.0 [facility] Comment on above: Performed By: #### L 500.2500, L100.0100 ####[facility] [address] [place], [address] Chloride [Moles/Vol] 107 mmol/L Normal 98-108 [facility] Comment on above: Performed By: #### L 500.2500, L100.0100 ####[facility] [address] [place], [address] CO2 [Moles/Vol] 19.2 mmol/L Low 21.0-32.0 [facility] Comment on above: Performed By: #### L 500.2500, L100.0100 ####[facility] [address] [place], [address] Creatinine [Mass/Vol] 0.68 mg/dL Low 0.70-1.20 [facility] Comment on above: Performed By: #### L 500.2500, L100.0100 ####[facility] [address] [place], [address] ECRCL 126.42 ml/min Normal 50-250 [facility] Comment on above: Performed By: #### L 500.2500, L100.0100 ####[facility] [address] [place], [address] GAP 11 Normal 5-15 [facility] Comment on above: Performed By: #### L 500.2500, L100.0100 ####[facility] [address] [place], [address] GFR/1.73 sq M.predicted among non-blacks MDRD (S/P/Bld) [Vol rate/Area] 120 mL/min/{1.73_m2} Normal >60 [facility] Comment on above: Result Comment: mL/m in/1.73m2 CKD-EPI Creatinine Equation (2020) Performed By: #### L 500.2500, L100.0100 ####[facility] [address] [place], [address] Glucose [Mass/Vol] 203 mg/dL High 70-99 [facility] Comment on above: Performed By: #### L 500.2500, L100.0100 ####[facility] [address] [place], [address] Potassium [Moles/Vol] 4.4 mmol/L Normal 3.3-5.1 [facility] Comment on above: Result Comment: Hemo lysis present, Results??could be affected.?? Performed By: #### L 500.2500, L100.0100 ####[facility] [address] [place], [address] Sodium [Moles/Vol] 137 mmol/L Normal 133-145 [facility] Comment on above: Performed By: #### L 500.2500, L100.0100 ####[facility] [address] [place], [address] Urea nitrogen [Mass/Vol] 7 mg/dL Normal 4-19 [facility] Comment on above: Performed By: #### L 500.2500, L100.0100 ####[facility] [address] [place], [address] Bedside Glucoseon 12-16-2024 FINGERSTICK GLU 214 mg/dL High 74-106 [facility] Comment on above: Result Comment: EDGAR GEMENT OF PATIENT CARE PER NURSING PROTOCOL Performed By: #### L 501.080 ####[facility] [address] [place], [address] FINGERSTICK GLU 227 mg/dL High 74-106 [facility] Comment on above: Result Comment: EDGAR GEMENT OF PATIENT CARE PER NURSING PROTOCOL Performed By: #### L 501.080 ####[facility] [address] [place], [address] FINGERSTICK GLU 180 mg/dL High 74-106 [facility] Comment on above: Result Comment: EDGAR GEMENT OF PATIENT CARE PER NURSING PROTOCOL Performed By: #### L 501.080 ####[facility] [address] [place], [address] CBC W/Diff, Automatedon 04- Absolute Lymph 2.03 X10 3/uL Normal 0.83-4.51 [facility] Comment on above: Performed By: #### L 500.2500, L100.0100 ####[facility] [address] [place], [address] Absolute Neut 14.1 X10 3/uL High 2.0-7.7 [facility] Comment on above: Performed By: #### L 500.2500, L100.0100 ####[facility] [address] [place], [address] Basophils/100 WBC (Bld) 0.3 % Normal 0-1 [facility] Comment on above: Performed By: #### L 500.2500, L100.0100 ####[facility] [address] [place], [address] Eosinophils/100 WBC (Bld) 0.1 % Normal 0-5 [facility] Comment on above: Performed By: #### L 500.2500, L100.0100 ####[facility] [address] [place], [address] Erythrocyte distribution width (RBC) [Ratio] 13.3 % Normal 11.6-14.6 [facility] Comment on above: Performed By: #### L 500.2500, L100.0100 ####[facility] [address] [place], [address] Hematocrit (Bld) [Volume fraction] 36.8 % Low 37-47 [facility] Comment on above: Performed By: #### L 500.2500, L100.0100 ####[facility] [address] [place], [address] Hemoglobin (Bld) [Mass/Vol] 12.4 g/dL Normal 12.0-15.0 [facility] Comment on above: Performed By: #### L 500.2500, L100.0100 ####[facility] [address] [place], [address] IG% 0.800 Normal 0.0-0.9 [facility] Comment on above: Result Comment: IG% - Immature Granulocytes (promyelocytes, myelocytes andmetamyelocytes) > 1% indicates that a LEFT SHIFT is Present. Performed By: #### L 500.2500, L100.0100 ####[facility] [address] [place], [address] Lymphocytes/100 WBC (Bld) 11.8 % Low 19-41 [facility] Comment on above: Performed By: #### L 500.2500, L100.0100 ####[facility] [address] [place], [address] MCH (RBC) [Entitic mass] 29.5 pg Normal 27.0-32.0 [facility] Comment on above: Performed By: #### L 500.2500, L100.0100 ####[facility] [address] [place], [address] MCHC (RBC) [Mass/Vol] 33.7 g/dL Normal 32-36 [facility] Comment on above: Performed By: #### L 500.2500, L100.0100 ####[facility] [address] [place], [address] MCV (RBC) [Entitic vol] 87.4 fL Normal 81-99 [facility] Comment on above: Performed By: #### L 500.2500, L100.0100 ####[facility] [address] [place], [address] Monocytes/100 WBC (Bld) 5.0 % Normal 0-10 [facility] Comment on above: Performed By: #### L 500.2500, L100.0100 ####[facility] [address] [place], [address] Neutrophils/100 WBC (Bld) 82.0 % High 47-70 [facility] Comment on above: Performed By: #### L 500.2500, L100.0100 ####[facility] [address] [place], [address] Nucleated RBC (Bld) [#/Vol] 0 10*3/uL Normal 0-5 [facility] Comment on above: Performed By: #### L 500.2500, L100.0100 ####[facility] [address] [place], [address] Platelet mean volume (Bld) [Entitic vol] 12.4 fL High 6.2-12.0 [facility] Comment on above: Performed By: #### L 500.2500, L100.0100 ####[facility] [address] [place], [address] Platelets (Bld) [#/Vol] 165 10*3/uL Normal 150-450 [facility] Comment on above: Performed By: #### L 500.2500, L100.0100 ####[facility] [address] [place], [address] RBC (Bld) [#/Vol] 4.21 10*6/uL Normal 4.2-5.4 [facility] Comment on above: Performed By: #### L 500.2500, L100.0100 ####[facility] [address] [place], [address] RDW SD 42.4 fl Normal 35.1-43.9 [facility] Comment on above: Performed By: #### L 500.2500, L100.0100 ####[facility] [address] [place], [address] WBC (Bld) [#/Vol] 17.1 10*3/uL High 4.4-11.0 [facility] Comment on above: Performed By: #### L 500.2500, L100.0100 ####[facility] [address] [place], [address] Discharge Instructionon 11-27 Discharge Instruction Normal [facility] Basic Metabolic Profile (BMP )on 12-15-2024 BUN/CRE 19.3 RATIO Normal 10-20 [facility] Comment on above: Performed By: #### L 500.2500, L100.0500 ####[facility] [address] [place], [address] Calcium [Mass/Vol] 7.9 mg/dL Normal 7.6-11.0 [facility] Comment on above: Performed By: #### L 500.2500, L100.0500 ####[facility] [address] [place], [address] Chloride [Moles/Vol] 106 mmol/L Normal 98-108 [facility] Comment on above: Performed By: #### L 500.2500, L100.0500 ####[facility] [address] [place], [address] CO2 [Moles/Vol] 14.3 mmol/L Low 21.0-32.0 [facility] Comment on above: Performed By: #### L 500.2500, L100.0500 ####[facility] [address] [place], [address] Creatinine [Mass/Vol] 0.56 mg/dL Low 0.70-1.20 [facility] Comment on above: Performed By: #### L 500.2500, L100.0500 ####[facility] [address] [place], [address] ECRCL 153.51 ml/min Normal 50-250 [facility] Comment on above: Performed By: #### L 500.2500, L100.0500 ####[facility] [address] [place], [address] GAP 17 High 5-15 [facility] Comment on above: Performed By: #### L 500.2500, L100.0500 ####[facility] [address] [place], [address] GFR/1.73 sq M.predicted among non-blacks MDRD (S/P/Bld) [Vol rate/Area] 126 mL/min/{1.73_m2} Normal >60 [facility] Comment on above: Result Comment: mL/m in/1.73m2 CKD-EPI Creatinine Equation (2020) Performed By: #### L 500.2500, L100.0500 ####[facility] [address] [place], [address] Glucose [Mass/Vol] 40 mg/dL Invalid Interpretation Code 70-99 [facility] Comment on above: Result Comment: Crit ical Result(s) Called at: 0709 by:??ROSLYN MACK Results read back by same. Performed By: #### L 500.2500, L100.0500 ####[facility] [address] [place], [address] Potassium [Moles/Vol] 3.1 mmol/L Low 3.3-5.1 [facility] Comment on above: Performed By: #### L 500.2500, L100.0500 ####[facility] [address] [place], [address] Sodium [Moles/Vol] 138 mmol/L Normal 133-145 [facility] Comment on above: Performed By: #### L 500.2500, L100.0500 ####[facility] [address] [place], [address] Urea nitrogen [Mass/Vol] 11 mg/dL Normal 4-19 [facility] Comment on above: Performed By: #### L 500.2500, L100.0500 ####[facility] [address] [place], [address] Bedside Glucoseon 12-15-2024 FINGERSTICK GLU 260 mg/dL High -106 [facility] Comment on above: Result Comment: EDGAR GEMENT OF PATIENT CARE PER NURSING PROTOCOL Performed By: #### L 501.080 ####[facility] [address] [place], [address] FINGERSTICK GLU 307 mg/dL High [facility] Comment on above: Result Comment: EDGAR GEMENT OF PATIENT CARE PER NURSING PROTOCOL Performed By: #### L 501.080 ####[facility] [address] [place], [address] FINGERSTICK GLU 204 mg/dL High [address] [place] [address] Comment on above: Result Comment: EDGAR GEMENT OF PATIENT CARE PER NURSING PROTOCOL Performed By: #### L 501.080 ####[facility] [address] [place], [address] FINGERSTICK GLU 77 mg/dL Normal -[address] [place] [address] Comment on above: Result Comment: EDGAR GEMENT OF PATIENT CARE PER NURSING PROTOCOL Performed By: #### L 501.080 ####[facility] [address] [place], [address] FINGERSTICK GLU 34 mg/dL Invalid Interpretation Code -[address] [place] [address] Comment on above: Result Comment: EDGAR GEMENT OF PATIENT CARE PER NURSING PROTOCOL Performed By: #### L 501.080 ####[facility] [address] [place], [address] FINGERSTICK GLU 109 mg/dL High [address] [place] [address] Comment on above: Result Comment: EDGAR GEMENT OF PATIENT CARE PER NURSING PROTOCOL Performed By: #### L 501.080 ####[facility] [address] [place], [address] CBC-Complete Blood Cnt No Di ffon 12-15-2024 Erythrocyte distribution width (RBC) [Ratio] 13.1 % Normal 11.6-14.6 [facility] Comment on above: Performed By: #### L 500.2500, L100.0500 ####[facility] [address] [place], [address] Hematocrit (Bld) [Volume fraction] 36.0 % Low 37-47 [facility] Comment on above: Performed By: #### L 500.2500, L100.0500 ####[facility] [address] [place], [address] Hemoglobin (Bld) [Mass/Vol] 12.2 g/dL Normal 12.0-15.0 [facility] Comment on above: Performed By: #### L 500.2500, L100.0500 ####[facility] [address] [place], [address] MCH (RBC) [Entitic mass] 30.1 pg Normal 27.0-32.0 [facility] Comment on above: Performed By: #### L 500.2500, L100.0500 ####[facility] [address] [place], [address] MCHC (RBC) [Mass/Vol] 33.9 g/dL Normal 32-36 [facility] Comment on above: Performed By: #### L 500.2500, L100.0500 ####[facility] [address] [place], [address] MCV (RBC) [Entitic vol] 88.9 fL Normal 81-99 [facility] Comment on above: Performed By: #### L 500.2500, L100.0500 ####[facility] [address] [place], [address] Platelet mean volume (Bld) [Entitic vol] 12.9 fL High 6.2-12.0 [facility] Comment on above: Performed By: #### L 500.2500, L100.0500 ####[facility] [address] [place], [address] Platelets (Bld) [#/Vol] 145 10*3/uL Low 150-450 [facility] Comment on above: Performed By: #### L 500.2500, L100.0500 ####[facility] [address] [place], [address] RBC (Bld) [#/Vol] 4.05 10*6/uL Low 4.2-5.4 [facility] Comment on above: Performed By: #### L 500.2500, L100.0500 ####[facility] [address] [place], [address] RDW SD 42.8 fl Normal 35.1-43.9 [facility] Comment on above: Performed By: #### L 500.2500, L100.0500 ####[facility] [address] [place], [address] WBC (Bld) [#/Vol] 16.4 10*3/uL High 4.4-11.0 [facility] Comment on above: Performed By: #### L 500.2500, L100.0500 ####[facility] [address] [place], [address] Basic Metabolic Profile (BMP )on 12-14-2024 BUN/CRE 17.1 RATIO Normal 10-20 [facility] Comment on above: Performed By: #### L 500.2500 ####[facility] [address] [place], [address] Calcium [Mass/Vol] 7.7 mg/dL Normal 7.6-11.0 [facility] Comment on above: Performed By: #### L 500.2500 ####[facility] [address] [place], [address] Chloride [Moles/Vol] 108 mmol/L Normal 98-108 [facility] Comment on above: Performed By: #### L 500.2500 ####[facility] [address] [place], [address] CO2 [Moles/Vol] 15.3 mmol/L Low 21.0-32.0 [facility] Comment on above: Performed By: #### L 500.2500 ####[facility] [address] [place], [address] Creatinine [Mass/Vol] 0.67 mg/dL Low 0.70-1.20 [facility] Comment on above: Performed By: #### L 500.2500 ####[facility] [address] [place], [address] ECRCL 138.78 ml/min Normal 50-250 [facility] Comment on above: Performed By: #### L 500.2500 ####[facility] [address] [place], [address] GAP 15 Normal 5-15 [facility] Comment on above: Performed By: #### L 500.2500 ####[facility] [address] [place], [address] GFR/1.73 sq M.predicted among non-blacks MDRD (S/P/Bld) [Vol rate/Area] 121 mL/min/{1.73_m2} Normal >60 [facility] Comment on above: Result Comment: mL/m in/1.73m2 CKD-EPI Creatinine Equation (2020) Performed By: #### L 500.2500 ####[facility] [address] [place], [address] Glucose [Mass/Vol] 180 mg/dL High 70-99 [facility] Comment on above: Performed By: #### L 500.2500 ####[facility] [address] [place], [address] Potassium [Moles/Vol] 3.3 mmol/L Normal 3.3-5.1 [facility] Comment on above: Performed By: #### L 500.2500 ####[facility] [address] [place], [address] Sodium [Moles/Vol] 138 mmol/L Normal 133-145 [facility] Comment on above: Performed By: #### L 500.2500 ####[facility] [address] [place], [address] Urea nitrogen [Mass/Vol] 11 mg/dL Normal 4-19 [facility] Comment on above: Performed By: #### L 500.2500 ####[facility] [address] [place], [address] Bedside Glucoseon 12-14-2024 FINGERSTICK GLU 186 mg/dL High 74-106 [facility] Comment on above: Result Comment: EDGAR GEMENT OF PATIENT CARE PER NURSING PROTOCOL Performed By: #### L 501.080 ####[facility] [address] [place], [address] FINGERSTICK GLU 291 mg/dL High 74-106 [facility] Comment on above: Result Comment: EDGAR GEMENT OF PATIENT CARE PER NURSING PROTOCOL Performed By: #### L 501.080 ####[facility] [address] [place], [address] FINGERSTICK GLU 352 mg/dL High 74-106 [facility] Comment on above: Result Comment: EDGAR GEMENT OF PATIENT CARE PER NURSING PROTOCOL Performed By: #### L 501.080 ####[facility] [address] [place], [address] Beta-Hydroxbytyrateon 2024 BETA-HYDROXYBUT 1.9 mmol/L Normal 0.0-0.3 [facility] Comment on above: Performed By: #### L 700.6800, L501.2450, L500.4050, L501.6901 ####[facility] [address] [place], [address] CBC W/Diff, Automatedon 11-26 Absolute Lymph 2.40 X10 3/uL Normal 0.83-4.51 [facility] Comment on above: Performed By: #### L 100.0100 ####[facility] [address] [place], [address] Absolute Neut 12.5 X10 3/uL High 2.0-7.7 [facility] Comment on above: Performed By: #### L 100.0100 ####[facility] [address] [place], [address] Basophils/100 WBC (Bld) 0.4 % Normal 0-1 [facility] Comment on above: Performed By: #### L 100.0100 ####[facility] [address] [place], [address] Eosinophils/100 WBC (Bld) 0.1 % Normal 0-5 [facility] Comment on above: Performed By: #### L 100.0100 ####[facility] [address] [place], [address] Erythrocyte distribution width (RBC) [Ratio] 12.9 % Normal 11.6-14.6 [facility] Comment on above: Performed By: #### L 100.0100 ####[facility] [address] [place], [address] Hematocrit (Bld) [Volume fraction] 39.9 % Normal 37-47 [facility] Comment on above: Performed By: #### L 100.0100 ####[facility] [address] [place], [address] Hemoglobin (Bld) [Mass/Vol] 13.7 g/dL Normal 12.0-15.0 [facility] Comment on above: Performed By: #### L 100.0100 ####[facility] [address] [place], [address] IG% 0.800 Normal 0.0-0.9 [facility] Comment on above: Result Comment: IG% - Immature Granulocytes (promyelocytes, myelocytes andmetamyelocytes) > 1% indicates that a LEFT SHIFT is Present. Performed By: #### L 100.0100 ####[facility] [address] [place], [address] Lymphocytes/100 WBC (Bld) 15.1 % Low 19-41 [facility] Comment on above: Performed By: #### L 100.0100 ####[facility] [address] [place], [address] MCH (RBC) [Entitic mass] 29.7 pg Normal 27.0-32.0 [facility] Comment on above: Performed By: #### L 100.0100 ####[facility] [address] [place], [address] MCHC (RBC) [Mass/Vol] 34.3 g/dL Normal 32-36 [facility] Comment on above: Performed By: #### L 100.0100 ####[facility] [address] [place], [address] MCV (RBC) [Entitic vol] 86.4 fL Normal 81-99 [facility] Comment on above: Performed By: #### L 100.0100 ####[facility] [address] [place], [address] Monocytes/100 WBC (Bld) 4.9 % Normal 0-10 [facility] Comment on above: Performed By: #### L 100.0100 ####[facility] [address] [place], [address] Neutrophils/100 WBC (Bld) 78.7 % High 47-70 [facility] Comment on above: Performed By: #### L 100.0100 ####[facility] [address] [place], [address] Nucleated RBC (Bld) [#/Vol] 0 10*3/uL Normal 0-5 [facility] Comment on above: Performed By: #### L 100.0100 ####[facility] [address] [place], [address] Platelet mean volume (Bld) [Entitic vol] 12.6 fL High 6.2-12.0 [facility] Comment on above: Performed By: #### L 100.0100 ####[facility] [address] [place], [address] Platelets (Bld) [#/Vol] 159 10*3/uL Normal 150-450 [facility] Comment on above: Performed By: #### L 100.0100 ####[facility] [address] [place], [address] RBC (Bld) [#/Vol] 4.62 10*6/uL Normal 4.2-5.4 [facility] Comment on above: Performed By: #### L 100.0100 ####[facility] [address] [place], [address] RDW SD 40.1 fl Normal 35.1-43.9 [facility] Comment on above: Performed By: #### L 100.0100 ####[facility] [address] [place], [address] WBC (Bld) [#/Vol] 15.9 10*3/uL High 4.4-11.0 [facility] Comment on above: Performed By: #### L 100.0100 ####[facility] [address] [place], [address] Comprehensive Metabolic Prof ilon 12-14-2024 Albumin [Mass/Vol] 4.2 g/dL Normal 3.5-5.0 [facility] Comment on above: Performed By: #### L 700.6800, L501.2450, L500.4050, L501.6901 ####[facility] [address] [place], [address] Albumin/Globulin [Mass ratio] 1.8 {ratio} Normal 0.9-2.4 [facility] Comment on above: Performed By: #### L 700.6800, L501.2450, L500.4050, L501.6901 ####[facility] [address] [place], [address] ALK PHOS 76 U/L Normal 35-104 [facility] Comment on above: Performed By: #### L 700.6800, L501.2450, L500.4050, L501.6901 ####[facility] [address] [place], [address] ALT [Catalytic activity/Vol] 11 U/L Normal <=34 [facility] Comment on above: Performed By: #### L 700.6800, L501.2450, L500.4050, L501.6901 ####[facility] [address] [place], [address] AST [Catalytic activity/Vol] 16 U/L Normal <=31 [facility] Comment on above: Performed By: #### L 700.6800, L501.2450, L500.4050, L501.6901 ####[facility] [address] [place], [address] Bilirubin [Mass/Vol] 0.92 mg/dL Normal 0.00-1.30 [facility] Comment on above: Performed By: #### L 700.6800, L501.2450, L500.4050, L501.6901 ####[facility] [address] [place], [address] BUN/CRE 18.2 RATIO Normal 10-20 [facility] Comment on above: Performed By: #### L 700.6800, L501.2450, L500.4050, L501.6901 ####[facility] [address] [place], [address] Calcium [Mass/Vol] 8.2 mg/dL Normal 7.6-11.0 [facility] Comment on above: Performed By: #### L 700.6800, L501.2450, L500.4050, L501.6901 ####[facility] [address] [place], [address] Chloride [Moles/Vol] 104 mmol/L Normal 98-108 [facility] Comment on above: Performed By: #### L 700.6800, L501.2450, L500.4050, L501.6901 ####[facility] [address] [place], [address] CO2 [Moles/Vol] 15.1 mmol/L Low 21.0-32.0 [facility] Comment on above: Performed By: #### L 700.6800, L501.2450, L500.4050, L501.6901 ####[facility] [address] [place], [address] Creatinine [Mass/Vol] 0.74 mg/dL Normal 0.70-1.20 [facility] Comment on above: Performed By: #### L 700.6800, L501.2450, L500.4050, L501.6901 ####[facility] [address] [place], [address] ECRCL 125.65 ml/min Normal 50-250 [facility] Comment on above: Performed By: #### L 700.6800, L501.2450, L500.4050, L501.6901 ####[facility] [address] [place], [address] GAP 17 High 5-15 [facility] Comment on above: Performed By: #### L 700.6800, L501.2450, L500.4050, L501.6901 ####[facility] [address] [place], [address] GFR/1.73 sq M.predicted among non-blacks MDRD (S/P/Bld) [Vol rate/Area] 112 mL/min/{1.73_m2} Normal >60 [facility] Comment on above: Result Comment: mL/m in/1.73m2 CKD-EPI Creatinine Equation (2020) Performed By: #### L 700.6800, L501.2450, L500.4050, L501.6901 ####[facility] [address] [place], [address] Globulin (S) [Mass/Vol] 2.4 g/dL Normal 2.2-4.2 [facility] Comment on above: Performed By: #### L 700.6800, L501.2450, L500.4050, L501.6901 ####[facility] [address] [place], [address] Glucose [Mass/Vol] 329 mg/dL High 70-99 [facility] Comment on above: Performed By: #### L 700.6800, L501.2450, L500.4050, L501.6901 ####[facility] [address] [place], [address] Potassium [Moles/Vol] 3.6 mmol/L Normal 3.3-5.1 [facility] Comment on above: Performed By: #### L 700.6800, L501.2450, L500.4050, L501.6901 ####[facility] [address] [place], [address] Sodium [Moles/Vol] 136 mmol/L Normal 133-145 [facility] Comment on above: Performed By: #### L 700.6800, L501.2450, L500.4050, L501.6901 ####[facility] [address] [place], [address] T PROT 6.5 g/dL Normal 5.9-8.4 [facility] Comment on above: Performed By: #### L 700.6800, L501.2450, L500.4050, L501.6901 ####[facility] [address] [place], [address] Urea nitrogen [Mass/Vol] 13 mg/dL Normal - [facility] Comment on above: Performed By: #### L 700.6800, L501.2450, L500.4050, L501.6901 ####[facility] [address] [place], [address] Emergency Department Summary on 12-14-2024 Emergency Department Summary Normal [facility] H AND P Exam - Hospitaliston 12-14-2024 H&P Exam - Hospitalist Normal [facility] Lipaseon 12-14-2024 Lipase [Catalytic activity/Vol] 13 U/L Normal 13-75 [facility] Comment on above: Result Comment: Pleselene schmitz note:LIPASE revised reference range effective 22.New Lipase methodology. Expected to produce lower valuesthan the previous assay method.NEW Reference Range: 13 - 75 U/L Performed By: #### L 700.6800, L501.2450, L500.4050, L501.6901 ####[facility] [address] [place], [address] Magnesiumon 12-14-2024 Magnesium [Mass/Vol] 1.5 mg/dL Normal 1.5-2.2 [facility] Comment on above: Performed By: #### L 501.5200, L501.2300 ####[facility] [address] [place], [address] Phosphoruson 12-14-2024 Phosphate [Mass/Vol] 1.4 mg/dL Invalid Interpretation Code 2.7-4.5 [facility] Comment on above: Performed By: #### L 501.5200, L501.2300 ####[facility] [address] [place], [address] ,Serum,hCG Quali.on 12-14-2024 HCG, SERUM QUAL Negative Normal [facility] Comment on above: Performed By: #### L 700.6800, L501.2450, L500.4050, L501.6901 ####[facility] [address] [place], [address] Urinalysis, Completeon 12-14 EPI,SQUAMOUS 0-5 SEEN Normal 5-10 [facility] Comment on above: Order Comment: CLEAN CATCH Performed By: #### L 400.0001 ####[facility] [address] [place], [address] BACTERIA 0 SEEN Normal None Seen [facility] Comment on above: Order Comment: CLEAN CATCH Performed By: #### L 400.0001 ####[facility] [address] [place], [address] Mucus Ql (Urine sed) 0 SEEN Normal [facility] Comment on above: Order Comment: CLEAN CATCH Performed By: #### L 400.0001 ####[facility] [address] [place], [address] RBC 0 SEEN Normal 0-5 [facility] Comment on above: Order Comment: CLEAN CATCH Performed By: #### L 400.0001 ####[facility] [address] [place], [address] WBC 0 SEEN Normal 0-5 [facility] Comment on above: Order Comment: CLEAN CATCH Performed By: #### L 400.0001 ####[facility] [address] [place], [address] Venous Blood Gason 5 Blood Gas Type ISABELLE Normal [facility] Comment on above: Performed By: #### L 9000.0810 ####[facility] [address] [place], [address] CO2 [Moles/Vol] 16 mmol/L Low 23-33 [facility] Comment on above: Performed By: #### L 9000.0810 ####[facility] [address] [place], [address] HCO3 (Bld) [Moles/Vol] 15 mmol/L Low 22-26 [facility] Comment on above: Performed By: #### L 9000.0810 ####[facility] [address] [place], [address] O2 Delivery Dev Room Air [facility] Comment on above: Performed By: #### L 9000.0810 ####[facility] [address] [place], [address] SITE Not entered [facility] Comment on above: Performed By: #### L 9000.0810 ####[facility] [address] [place], [address] VBG BE -9 mmol/L Low -1.0-3.5 [facility] [facility] Comment on above: Performed By: #### L 9000.0810 ####[facility] [address] [place], [address] VBG pCO2 21.7 mmHg Low 41-51 [facility] Comment on above: Performed By: #### L 9000.0810 ####[facility] [address] [place], [address] VBG pH 7.45 High 7.32-7.42 [facility] Comment on above: Performed By: #### L 9000.0810 ####[facility] [address] [place], [address] VBG PO2 43 mmHg High 25-40 [facility] Comment on above: Performed By: #### L 9000.0810 ####[facility] [address] [place], [address] VBG SO2 83 High 50-70 [facility] Comment on above: Performed By: #### L 9000.0810 ####[facility] [address] [place], [address] CBC W/Diff, Automatedon PLT EST ADEQUATE Normal ADEQ [facility] Comment on above: Performed By: #### L 506.1001, L503.6030, L509.6001, L500.4050, L501.9985, L100.0100, L501.9520 ####[facility] [address] [place], [address] Comprehensive Metabolic Prof ilon 11-28-2024 Albumin [Mass/Vol] 4.1 g/dL Normal 3.5-5.0 [facility] Comment on above: Performed By: #### L 506.1001, L503.6030, L509.6001, L500.4050, L501.9985, L100.0100, L501.9520 ####[facility] [address] [place], [address] Albumin/Globulin [Mass ratio] 1.8 {ratio} Normal 0.9-2.4 [facility] Comment on above: Performed By: #### L 506.1001, L503.6030, L509.6001, L500.4050, L501.9985, L100.0100, L501.9520 ####[facility] [address] [place], [address] ALK PHOS 68 U/L Normal 35-104 [facility] Comment on above: Performed By: #### L 506.1001, L503.6030, L509.6001, L500.4050, L501.9985, L100.0100, L501.9520 ####[facility] [address] [place], [address] ALT [Catalytic activity/Vol] 6 U/L Normal <=34 [facility] Comment on above: Performed By: #### L 506.1001, L503.6030, L509.6001, L500.4050, L501.9985, L100.0100, L501.9520 ####[facility] [address] [place], [address] AST [Catalytic activity/Vol] 16 U/L Normal <=31 [facility] Comment on above: Performed By: #### L 506.1001, L503.6030, L509.6001, L500.4050, L501.9985, L100.0100, L501.9520 ####[facility] [address] [place], [address] Bilirubin [Mass/Vol] 0.29 mg/dL Normal 0.00-1.30 [facility] Comment on above: Performed By: #### L 506.1001, L503.6030, L509.6001, L500.4050, L501.9985, L100.0100, L501.9520 ####[facility] [address] [place], [address] BUN/CRE 19.9 RATIO Normal 10-20 [facility] Comment on above: Performed By: #### L 506.1001, L503.6030, L509.6001, L500.4050, L501.9985, L100.0100, L501.9520 ####[facility] [address] [place], [address] Calcium [Mass/Vol] 9.1 mg/dL Normal 7.6-11.0 [facility] Comment on above: Performed By: #### L 506.1001, L503.6030, L509.6001, L500.4050, L501.9985, L100.0100, L501.9520 ####[facility] [address] [place], [address] Chloride [Moles/Vol] 107 mmol/L Normal 98-108 [facility] Comment on above: Performed By: #### L 506.1001, L503.6030, L509.6001, L500.4050, L501.9985, L100.0100, L501.9520 ####[facility] [address] [place], [address] CO2 [Moles/Vol] 20.4 mmol/L Low 21.0-32.0 [facility] Comment on above: Performed By: #### L 506.1001, L503.6030, L509.6001, L500.4050, L501.9985, L100.0100, L501.9520 ####[facility] [address] [place], [address] Creatinine [Mass/Vol] 0.59 mg/dL Low 0.70-1.20 [facility] Comment on above: Performed By: #### L 506.1001, L503.6030, L509.6001, L500.4050, L501.9985, L100.0100, L501.9520 ####[facility] [address] [place], [address] GAP 11 Normal 5-15 [facility] Comment on above: Performed By: #### L 506.1001, L503.6030, L509.6001, L500.4050, L501.9985, L100.0100, L501.9520 ####[facility] [address] [place], [address] GFR/1.73 sq M.predicted among non-blacks MDRD (S/P/Bld) [Vol rate/Area] 124 mL/min/{1.73_m2} Normal >60 [facility] Comment on above: Result Comment: mL/m in/1.73m2 CKD-EPI Creatinine Equation (2020) Performed By: #### L 506.1001, L503.6030, L509.6001, L500.4050, L501.9985, L100.0100, L501.9520 ####[facility] [address] [place], [address] Globulin (S) [Mass/Vol] 2.3 g/dL Normal 2.2-4.2 [facility] Comment on above: Performed By: #### L 506.1001, L503.6030, L509.6001, L500.4050, L501.9985, L100.0100, L501.9520 ####[facility] [address] [place], [address] Glucose [Mass/Vol] 222 mg/dL High 70-99 [facility] Comment on above: Performed By: #### L 506.1001, L503.6030, L509.6001, L500.4050, L501.9985, L100.0100, L501.9520 ####[facility] [address] [place], [address] Potassium [Moles/Vol] 4.2 mmol/L Normal 3.3-5.1 [facility] Comment on above: Performed By: #### L 506.1001, L503.6030, L509.6001, L500.4050, L501.9985, L100.0100, L501.9520 ####[facility] [address] [place], [address] Sodium [Moles/Vol] 138 mmol/L Normal 133-145 [facility] Comment on above: Performed By: #### L 506.1001, L503.6030, L509.6001, L500.4050, L501.9985, L100.0100, L501.9520 ####[facility] [address] [place], [address] T PROT 6.4 g/dL Normal 5.9-8.4 [facility] Comment on above: Performed By: #### L 506.1001, L503.6030, L509.6001, L500.4050, L501.9985, L100.0100, L501.9520 ####[facility] [address] [place], [address] Urea nitrogen [Mass/Vol] 12 mg/dL Normal 4-19 [facility] Comment on above: Performed By: #### L 506.1001, L503.6030, L509.6001, L500.4050, L501.9985, L100.0100, L501.9520 ####[facility] [address] [place], [address] Hemoglobin A1con 11-28-2024 HbA1c (Bld) [Mass fraction] 10.1 % Normal <=5.6 [facility] Comment on above: Performed By: #### L 506.1001, L503.6030, L509.6001, L500.4050, L501.9985, L100.0100, L501.9520 ####[facility] [address] [place], [address] Iron+Iron Binding Capacityon 11-28-2024 Iron [Mass/Vol] 71 ug/dL Normal 50-170 [facility] Comment on above: Performed By: #### L 506.1001, L503.6030, L509.6001, L500.4050, L501.9985, L100.0100, L501.9520 ####[facility] [address] [place], [address] IRON SATURATION 28.0 Normal 13-59 [facility] Comment on above: Performed By: #### L 506.1001, L503.6030, L509.6001, L500.4050, L501.9985, L100.0100, L501.9520 ####[facility] [address] [place], [address] TIBC 248 ug/dL Low 250-450 [facility] Comment on above: Performed By: #### L 506.1001, L503.6030, L509.6001, L500.4050, L501.9985, L100.0100, L501.9520 ####[facility] [address] [place], [address] UIBC 177 ug/dL Low 228-428 [facility] Comment on above: Performed By: #### L 506.1001, L503.6030, L509.6001, L500.4050, L501.9985, L100.0100, L501.9520 ####[facility] [address] [place], [address] L509.6001on 11-28-2024 CORTISOL 5.66 ug/dL Low 6.02-18.40 [facility] Comment on above: Performed By: #### L 506.1001, L503.6030, L509.6001, L500.4050, L501.9985, L100.0100, L501.9520 ####[facility] [address] [place], [address] Thyroid Stim Hormone (TSH)on 11-28-2024 TSH 0.451 uIU/mL Normal 0.300-4.200 [facility] Comment on above: Performed By: #### L 506.1001, L503.6030, L509.6001, L500.4050, L501.9985, L100.0100, L501.9520 ####[facility] [address] [place], [address] Vitamin D,25 Hydroxyon 11-28 Vitamin D 25-OH 15.7 ng/mL Low 30-100 [facility] Comment on above: Result Comment: Shira min D StatusDeficiency: <20 ng/mL (50nmol/L)Insufficiency: 20-30 ng/mL (50-75 nmol/L)Sufficiency: 30-100 ng/mL (75-250 nmol/L)Toxicity: >100 ng/mL (>250 nmol/L) Performed By: #### L 506.1001, L503.6030, L509.6001, L500.4050, L501.9985, L100.0100, L501.9520 ####[facility] [address] [place], [address] CNCOon 11-13-2024 CNCO Letter Text Normal [facility] CNOVon 11-11-2024 CNOV Office Visit (GAST[facility] ) KATHLEEN VILLA ([id number]) 1995 F CHT Date Time Provider Department [...] every 24 hours. 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 [facility]ATH[facility] ([id number]) 1995 F CHT Date Time Provider Department 11/11/24 LETICIA HYLTON [facility] During your visit today, we recorded the following information about you: Guero Hammer LPN 11/11/2024 2:03 PM Signed Please let her know that her x-ray demonstrates a significantly large amount of stool throughout the colon. I am going to send in [facility] for her to try spoke with patient [...] Units subcutaneously every 24 hours. 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 No dilated bowel. Transcribed Using Voice Recognition Transcribe Date/Time: Nov 11 2024 11:10A Dictated by: TRES EVANS DO This examination was interpreted and the report reviewed and electronically signed by: TRES EVANS DO on Nov 11 2024 11:13AM EST [facility] * * *Final Report* * [...] lower abdomen/pelvis. No acute bony abnormality. [facility] Provider, Ama Armando [facility] - 11/11/2024 * * *Final Report* * [...] DO on Nov 11 2024 11:13AM EST [facility] Radiology Study observation (narrative) [facility] XR Abdomen Supine and Uprigh tOrdered By: [facility]cf Provider on 11-11-2024 [facility] Basic Metabolic Profile (BMP )on 11-06-2024 BUN/CRE 16.8 RATIO Normal 10-20 [facility] Comment on above: Performed By: #### L 500.2500 ####[facility] [address] [place], [address] Calcium [Mass/Vol] 8.0 mg/dL Normal 7.6-11.0 [facility] Comment on above: Performed By: #### L 500.2500 ####[facility] [address] [place], [address] Chloride [Moles/Vol] 104 mmol/L Normal 98-108 [facility] Comment on above: Performed By: #### L 500.2500 ####[facility] [address] [place], [address] CO2 [Moles/Vol] 21.1 mmol/L Normal 21.0-32.0 [facility] Comment on above: Performed By: #### L 500.2500 ####[facility] [address] [place], [address] Creatinine [Mass/Vol] 0.64 mg/dL Low 0.70-1.20 [facility] Comment on above: Performed By: #### L 500.2500 ####[facility] [address] [place], [address] ECRCL 134.33 ml/min Normal 50-250 [facility] Comment on above: Performed By: #### L 500.2500 ####[facility] [address] [place], [address] GAP 12 Normal 5-15 [facility] Comment on above: Performed By: #### L 500.2500 ####[facility] [address] [place], [address] GFR/1.73 sq M.predicted among non-blacks MDRD (S/P/Bld) [Vol rate/Area] 122 mL/min/{1.73_m2} Normal >60 [facility] Comment on above: Result Comment: mL/m in/1.73m2 CKD-EPI Creatinine Equation (2020) Performed By: #### L 500.2500 ####[facility] [address] [place], [address] Glucose [Mass/Vol] 64 mg/dL Low 70-99 [facility] Comment on above: Performed By: #### L 500.2500 ####[facility] [address] [place], [address] Potassium [Moles/Vol] 3.3 mmol/L Normal 3.3-5.1 [facility] Comment on above: Performed By: #### L 500.2500 ####[facility] [address] [place], [address] Sodium [Moles/Vol] 137 mmol/L Normal 133-145 [facility] Comment on above: Performed By: #### L 500.2500 ####[facility] [address] [place], [address] Urea nitrogen [Mass/Vol] 11 mg/dL Normal 4-19 [facility] Comment on above: Performed By: #### L 500.2500 ####[facility] [address] [place], [address] Bedside Glucoseon 11-06-2024 FINGERSTICK GLU 100 mg/dL Normal 74-106 [facility] Comment on above: Result Comment: EDGAR GEMENT OF PATIENT CARE PER NURSING PROTOCOL Performed By: #### L 501.080 ####[facility] [address] [place], [address] FINGERSTICK GLU 151 mg/dL High 74-106 [facility] Comment on above: Result Comment: EDGAR GEMENT OF PATIENT CARE PER NURSING PROTOCOL Performed By: #### L 501.080 ####[facility] [address] [place], [address] FINGERSTICK GLU 153 mg/dL High 74-106 [facility] Comment on above: Result Comment: EDGAR GEMENT OF PATIENT CARE PER NURSING PROTOCOL Performed By: #### L 501.080 ####[facility] [address] [place], [address] FINGERSTICK GLU 50 mg/dL Low 74-106 [facility] Comment on above: Result Comment: EDGAR GEMENT OF PATIENT CARE PER NURSING PROTOCOL Performed By: #### L 501.080 ####[facility] [address] [place], [address] FINGERSTICK GLU 141 mg/dL High 74-106 [facility] Comment on above: Result Comment: EDGAR GEMENT OF PATIENT CARE PER NURSING PROTOCOL Performed By: #### L 501.080 ####[facility] [address] [place], [address] FINGERSTICK GLU 129 mg/dL High 74-106 [facility] Comment on above: Result Comment: EDGAR HUNG OF PATIENT CARE PER NURSING PROTOCOL Performed By: #### L 501.080 ####[facility] [address] [place], [address] CBC W/Diff, Automatedon 10-26 Absolute Lymph 2.60 X10 3/uL Normal 0.83-4.51 [facility] Comment on above: Performed By: #### L 100.0100 ####[facility] [address] [place], [address] Absolute Neut 7.6 X10 3/uL Normal 2.0-7.7 [facility] Comment on above: Performed By: #### L 100.0100 ####[facility] [address] [place], [address] Basophils/100 WBC (Bld) 0.5 % Normal 0-1 [facility] Comment on above: Performed By: #### L 100.0100 ####[facility] [address] [place], [address] Eosinophils/100 WBC (Bld) 0.4 % Normal 0-5 [facility] Comment on above: Performed By: #### L 100.0100 ####[facility] [address] [place], [address] Erythrocyte distribution width (RBC) [Ratio] 13.7 % Normal 11.6-14.6 [facility] Comment on above: Performed By: #### L 100.0100 ####[facility] [address] [place], [address] Hematocrit (Bld) [Volume fraction] 36.0 % Low 37-47 [facility] Comment on above: Performed By: #### L 100.0100 ####[facility] [address] [place], [address] Hemoglobin (Bld) [Mass/Vol] 12.2 g/dL Normal 12.0-15.0 [facility] Comment on above: Performed By: #### L 100.0100 ####[facility] [address] [place], [address] IG% 1.000 High 0.0-0.9 [facility] Comment on above: Result Comment: IG% - Immature Granulocytes (promyelocytes, myelocytes andmetamyelocytes) > 1% indicates that a LEFT SHIFT is Present. Performed By: #### L 100.0100 ####[facility] [address] [place], [address] Lymphocytes/100 WBC (Bld) 23.4 % Normal 19-41 [facility] Comment on above: Performed By: #### L 100.0100 ####[facility] [address] [place], [address] MCH (RBC) [Entitic mass] 29.7 pg Normal 27.0-32.0 [facility] Comment on above: Performed By: #### L 100.0100 ####[facility] [address] [place], [address] MCHC (RBC) [Mass/Vol] 33.9 g/dL Normal 32-36 [facility] Comment on above: Performed By: #### L 100.0100 ####[facility] [address] [place], [address] MCV (RBC) [Entitic vol] 87.6 fL Normal 81-99 [facility] Comment on above: Performed By: #### L 100.0100 ####[facility] [address] [place], [address] Monocytes/100 WBC (Bld) 6.7 % Normal 0-10 [facility] Comment on above: Performed By: #### L 100.0100 ####[facility] [address] [place], [address] Neutrophils/100 WBC (Bld) 68.0 % Normal 47-70 [facility] Comment on above: Performed By: #### L 100.0100 ####[facility] [address] [place], [address] Nucleated RBC (Bld) [#/Vol] 0 10*3/uL Normal 0-5 [facility] Comment on above: Performed By: #### L 100.0100 ####[facility] [address] [place], [address] Platelet mean volume (Bld) [Entitic vol] 10.8 fL Normal 6.2-12.0 [facility] Comment on above: Performed By: #### L 100.0100 ####[facility] [address] [place], [address] Platelets (Bld) [#/Vol] 188 10*3/uL Normal 150-450 [facility] Comment on above: Performed By: #### L 100.0100 ####[facility] [address] [place], [address] RBC (Bld) [#/Vol] 4.11 10*6/uL Low 4.2-5.4 [facility] Comment on above: Performed By: #### L 100.0100 ####[facility] [address] [place], [address] RDW SD 43.6 fl Normal 35.1-43.9 [facility] Comment on above: Performed By: #### L 100.0100 ####[facility] [address] [place], [address] WBC (Bld) [#/Vol] 11.1 10*3/uL High 4.4-11.0 [facility] Comment on above: Performed By: #### L 100.0100 ####[facility] [address] [place], [address] Comprehensive Metabolic Prof ilon 11-06-2024 Albumin [Mass/Vol] 3.6 g/dL Normal 3.5-5.0 [facility] Comment on above: Order Comment: CMP-T IMED FOR A Q6 BMP Performed By: #### L 501.5200, L501.2300, L500.4050 ####[facility] [address] [place], [address] Albumin/Globulin [Mass ratio] 1.6 {ratio} Normal 0.9-2.4 [facility] Comment on above: Order Comment: CMP-T IMED FOR A Q6 BMP Performed By: #### L 501.5200, L501.2300, L500.4050 ####[facility] [address] [place], [address] ALK PHOS 76 U/L Normal 35-104 [facility] Comment on above: Order Comment: CMP-T IMED FOR A Q6 BMP Performed By: #### L 501.5200, L501.2300, L500.4050 ####[facility] [address] [place], [address] ALT [Catalytic activity/Vol] 14 U/L Normal <=34 [facility] Comment on above: Order Comment: CMP-T IMED FOR A Q6 BMP Performed By: #### L 501.5200, L501.2300, L500.4050 ####[facility] [address] [place], [address] AST [Catalytic activity/Vol] 17 U/L Normal <=31 [facility] Comment on above: Order Comment: CMP-T IMED FOR A Q6 BMP Performed By: #### L 501.5200, L501.2300, L500.4050 ####[facility] [address] [place], [address] Bilirubin [Mass/Vol] 0.91 mg/dL Normal 0.00-1.30 [facility] Comment on above: Order Comment: CMP-T IMED FOR A Q6 BMP Performed By: #### L 501.5200, L501.2300, L500.4050 ####[facility] [address] [place], [address] BUN/CRE 12.2 RATIO Normal 10-20 [facility] Comment on above: Order Comment: CMP-T IMED FOR A Q6 BMP Performed By: #### L 501.5200, L501.2300, L500.4050 ####[facility] [address] [place], [address] Calcium [Mass/Vol] 8.2 mg/dL Normal 7.6-11.0 [facility] Comment on above: Order Comment: CMP-T IMED FOR A Q6 BMP Performed By: #### L 501.5200, L501.2300, L500.4050 ####[facility] [address] [place], [address] Chloride [Moles/Vol] 105 mmol/L Normal 98-108 [facility] Comment on above: Order Comment: CMP-T IMED FOR A Q6 BMP Performed By: #### L 501.5200, L501.2300, L500.4050 ####[facility] [address] [place], [address] CO2 [Moles/Vol] 22.2 mmol/L Normal 21.0-32.0 [facility] Comment on above: Order Comment: CMP-T IMED FOR A Q6 BMP Performed By: #### L 501.5200, L501.2300, L500.4050 ####[facility] [address] [place], [address] Creatinine [Mass/Vol] 0.61 mg/dL Low 0.70-1.20 [facility] Comment on above: Order Comment: CMP-T IMED FOR A Q6 BMP Performed By: #### L 501.5200, L501.2300, L500.4050 ####[facility] [address] [place], [address] ECRCL 140.93 ml/min Normal 50-250 [facility] Comment on above: Order Comment: CMP-T IMED FOR A Q6 BMP Performed By: #### L 501.5200, L501.2300, L500.4050 ####[facility] [address] [place], [address] GAP 11 Normal 5-15 [facility] Comment on above: Order Comment: CMP-T IMED FOR A Q6 BMP Performed By: #### L 501.5200, L501.2300, L500.4050 ####[facility] [address] [place], [address] GFR/1.73 sq M.predicted among non-blacks MDRD (S/P/Bld) [Vol rate/Area] 123 mL/min/{1.73_m2} Normal >60 [facility] Comment on above: Order Comment: CMP-T IMED FOR A Q6 BMP Result Comment: mL/m in/1.73m2 CKD-EPI Creatinine Equation (2020) Performed By: #### L 501.5200, L501.2300, L500.4050 ####[facility] [address] [place], [address] Globulin (S) [Mass/Vol] 2.2 g/dL Normal 2.2-4.2 [facility] Comment on above: Order Comment: CMP-T IMED FOR A Q6 BMP Performed By: #### L 501.5200, L501.2300, L500.4050 ####[facility] [address] [place], [address] Glucose [Mass/Vol] 122 mg/dL High 70-99 [facility] Comment on above: Order Comment: CMP-T IMED FOR A Q6 BMP Performed By: #### L 501.5200, L501.2300, L500.4050 ####[facility] [address] [place], [address] Potassium [Moles/Vol] 3.4 mmol/L Normal 3.3-5.1 [facility] Comment on above: Order Comment: CMP-T IMED FOR A Q6 BMP Performed By: #### L 501.5200, L501.2300, L500.4050 ####[facility] [address] [place], [address] Sodium [Moles/Vol] 138 mmol/L Normal 133-145 [facility] Comment on above: Order Comment: CMP-T IMED FOR A Q6 BMP Performed By: #### L 501.5200, L501.2300, L500.4050 ####[facility] [address] [place], [address] T PROT 5.9 g/dL Normal 5.9-8.4 [facility] Comment on above: Order Comment: CMP-T IMED FOR A Q6 BMP Performed By: #### L 501.5200, L501.2300, L500.4050 ####[facility] [address] [place], [address] Urea nitrogen [Mass/Vol] 7 mg/dL Normal 4-19 [facility] Comment on above: Order Comment: CMP-T IMED FOR A Q6 BMP Performed By: #### L 501.5200, L501.2300, L500.4050 ####[facility] [address] [place], [address] Discharge Instructionon 10-26 Discharge Instruction Normal [facility] Magnesiumon 03-12-2025 Magnesium [Mass/Vol] 2.2 mg/dL Normal 1.5-2.2 [facility] Comment on above: Order Comment: CMP-T IMED FOR A Q6 BMP Performed By: #### L 501.5200, L501.2300, L500.4050 ####[facility] [address] [place], [address] Phosphoruson 11-06-2024 Phosphate [Mass/Vol] 2.1 mg/dL Low 2.7-4.5 [facility] Comment on above: Order Comment: CMP-T IMED FOR A Q6 BMP Performed By: #### L 501.5200, L501.2300, L500.4050 ####[facility] [address] [place], [address] Urine Drug Screen (VISTA)on 11-06-2024 AMPHETAMINES Negative Normal <1000 ng/mL [facility] Comment on above: Performed By: #### L 505.5000 ####[facility] [address] [place], [address] BARBITIURATES Negative Normal < 200 ng/mL [facility] Comment on above: Performed By: #### L 505.5000 ####[facility] [address] [place], [address] BENZODIAZIPINE Negative Normal < 200 ng/mL [facility] Comment on above: Performed By: #### L 505.5000 ####[facility] [address] [place], [address] BUP Ur Drug Scr Negative Normal < 200 ng/mL [facility] Comment on above: Performed By: #### L 505.5000 ####[facility] [address] [place], [address] COCAINE Negative Normal < 300 ng/mL [facility] Comment on above: Performed By: #### L 505.5000 ####[facility] [address] [place], [address] Fentanyl Negative Normal [facility] Comment on above: Performed By: #### L 505.5000 ####[facility] [address] [place], [address] METHADONE Negative Normal < 300 ng/mL [facility] Comment on above: Performed By: #### L 505.5000 ####[facility] [address] [place], [address] OPIATES Negative Normal < 300 ng/mL [facility] Comment on above: Performed By: #### L 505.5000 ####[facility] [address] [place], [address] OXYCODONE Negative Normal < 100 ng/mL [facility] Comment on above: Performed By: #### L 505.5000 ####[facility] [address] [place], [address] PCP Negative Normal < 25 ng/mL [facility] Comment on above: Performed By: #### L 505.5000 ####[facility] [address] [place], [address] THC Positive Normal < 50 ng/mL [facility] Comment on above: Result Comment: If c onfirmation testing is needed, a separate order will berequired to send out testing to the reference laboratory. Performed By: #### L 505.5000 ####[facility] [address] [place], [address] Basic Metabolic Profile (BMP )on 11-05-2024 BUN/CRE 18.5 RATIO Normal 10-20 [facility] Comment on above: Performed By: #### L 500.2500 ####[facility] [address] [place], [address] Calcium [Mass/Vol] 7.5 mg/dL Low 7.6-11.0 [facility] Comment on above: Performed By: #### L 500.2500 ####[facility] [address] [place], [address] Chloride [Moles/Vol] 99 mmol/L Normal 98-108 [facility] Comment on above: Performed By: #### L 500.2500 ####[facility] [address] [place], [address] CO2 [Moles/Vol] 15.7 mmol/L Low 21.0-32.0 [facility] Comment on above: Performed By: #### L 500.2500 ####[facility] [address] [place], [address] Creatinine [Mass/Vol] 0.74 mg/dL Normal 0.70-1.20 [facility] Comment on above: Performed By: #### L 500.2500 ####[facility] [address] [place], [address] ECRCL 116.17 ml/min Normal 50-250 [facility] Comment on above: Performed By: #### L 500.2500 ####[facility] [address] [place], [address] GAP 18 High 5-15 [facility] Comment on above: Performed By: #### L 500.2500 ####[facility] [address] [place], [address] GFR/1.73 sq M.predicted among non-blacks MDRD (S/P/Bld) [Vol rate/Area] 111 mL/min/{1.73_m2} Normal >60 [facility] Comment on above: Result Comment: mL/m in/1.73m2 CKD-EPI Creatinine Equation (2020) Performed By: #### L 500.2500 ####[facility] [address] [place], [address] Glucose [Mass/Vol] 176 mg/dL High 70-99 [facility] Comment on above: Performed By: #### L 500.2500 ####[facility] [address] [place], [address] Potassium [Moles/Vol] 4.8 mmol/L Normal 3.3-5.1 [facility] Comment on above: Performed By: #### L 500.2500 ####[facility] [address] [place], [address] Sodium [Moles/Vol] 133 mmol/L Normal 133-145 [facility] Comment on above: Performed By: #### L 500.2500 ####[facility] [address] [place], [address] Urea nitrogen [Mass/Vol] 14 mg/dL Normal 4-19 [facility] Comment on above: Performed By: #### L 500.2500 ####[facility] [address] [place], [address] BUN Normal 4-19 [facility] Comment on above: Result Comment: DUPL ICATE Performed By: #### L 500.2500 ####[facility] [address] [place], [address] BUN/CRE Normal 10-20 [facility] Comment on above: Result Comment: DUPL ICATE Performed By: #### L 500.2500 ####[facility] [address] [place], [address] Calcium Normal 7.6-11.0 [facility] Comment on above: Result Comment: DUPL ICATE Performed By: #### L 500.2500 ####[facility] [address] [place], [address] CL Normal 98-108 [facility] Comment on above: Result Comment: DUPL ICATE Performed By: #### L 500.2500 ####[facility] [address] [place], [address] CO2 Normal 21.0-32.0 [facility] Comment on above: Result Comment: DUPL ICATE Performed By: #### L 500.2500 ####[facility] [address] [place], [address] CREAT,SERUM Normal 0.70-1.20 [facility] Comment on above: Result Comment: DUPL ICATE Performed By: #### L 500.2500 ####[facility] [address] [place], [address] eGFR Normal >60 [facility] Comment on above: Result Comment: DUPL ICATE Performed By: #### L 500.2500 ####[facility] [address] [place], [address] GAP Normal 5-15 [facility] Comment on above: Result Comment: DUPL ICATE Performed By: #### L 500.2500 ####[facility] [address] [place], [address] GLU Normal 70-99 [facility] Comment on above: Result Comment: DUPL ICATE Performed By: #### L 500.2500 ####[facility] [address] [place], [address] Potassium Normal 3.3-5.1 [facility] Comment on above: Result Comment: DUPL ICATE Performed By: #### L 500.2500 ####[facility] [address] [place], [address] Basic Metabolic Profile (BMP) Normal 133-145 [facility] Comment on above: Result Comment: DUPL ICATE Performed By: #### L 500.2500 ####[facility] [address] [place], [address] Bedside Glucoseon 11-05-2024 FINGERSTICK GLU 109 mg/dL High 74-106 [facility] Comment on above: Result Comment: EDGAR HUNG OF PATIENT CARE PER NURSING PROTOCOL Performed By: #### L 501.080 ####[facility] [address] [place], [address] FINGERSTICK GLU 222 mg/dL High 74-106 [facility] Comment on above: Result Comment: EDGAR HUNG OF PATIENT CARE PER NURSING PROTOCOL Performed By: #### L 501.080 ####[facility] [address] [place], [address] Blood [facility] GEM TEST Positive Normal [facility] Comment on above: Performed By: #### L 9000.0800 ####[facility] [address] [place], [address] Base excess Calc (Bld) [Moles/Vol] -5 mmol/L Low -2 to +2 [facility] Comment on above: Performed By: #### L 9000.0800 ####[facility] [address] [place], [address] Blood Gas Type ART Normal [facility] Comment on above: Performed By: #### L 9000.0800 ####[facility] [address] [place], [address] CO2 [Moles/Vol] 21 mmol/L Normal [facility] Comment on above: Performed By: #### L 9000.0800 ####[facility] [address] [place], [address] HCO3 (Bld) [Moles/Vol] 19.9 mmol/L Low 22-[address] [facility] Comment on above: Performed By: #### L 9000.0800 ####[facility] [address] [place], [address] Mode Not entered Normal [facility] Comment on above: Performed By: #### L 9000.0800 ####[facility] [address] [place], [address] O2 Delivery Dev Room Air Normal [facility] Comment on above: Performed By: #### L 9000.0800 ####[facility] [address] [place], [address] pCO2 31.1 mmHg Low 35-45 [facility] Comment on above: Performed By: #### L 9000.0800 ####[facility] [address] [place], [address] pH (Bld) 7.42 [pH] Normal 7.35-7.45 [facility] Comment on above: Performed By: #### L 9000.0800 ####[facility] [address] [place], [address] PO2 89 mmHG Normal 75-100 [facility] Comment on above: Performed By: #### L 9000.0800 ####[facility] [address] [place], [address] SITE L Radial Normal [facility] Comment on above: Performed By: #### L 9000.0800 ####[facility] [address] [place], [address] SO2 97 Normal 95-99 [facility] Comment on above: Performed By: #### L 9000.0800 ####[facility] [address] [place], [address] CBC W/Diff, Automatedon 10-26 Absolute Lymph 0.93 X10 3/uL Normal 0.83-4.51 [facility] Comment on above: Performed By: #### L 500.4050, L100.0100, L503.6005, L501.2450, L700.6800 ####[facility] [address] [place], [address] Absolute Neut 13.4 X10 3/uL High 2.0-7.7 [facility] Comment on above: Performed By: #### L 500.4050, L100.0100, L503.6005, L501.2450, L700.6800 ####[facility] [address] [place], [address] Basophils/100 WBC (Bld) 0.2 % Normal 0-1 [facility] Comment on above: Performed By: #### L 500.4050, L100.0100, L503.6005, L501.2450, L700.6800 ####[facility] [address] [place], [address] Eosinophils/100 WBC (Bld) 0.0 % Normal 0-5 [facility] Comment on above: Performed By: #### L 500.4050, L100.0100, L503.6005, L501.2450, L700.6800 ####[facility] [address] [place], [address] Erythrocyte distribution width (RBC) [Ratio] 13.6 % Normal 11.6-14.6 [facility] Comment on above: Performed By: #### L 500.4050, L100.0100, L503.6005, L501.2450, L700.6800 ####[facility] [address] [place], [address] Hematocrit (Bld) [Volume fraction] 38.0 % Normal 37-47 [facility] Comment on above: Performed By: #### L 500.4050, L100.0100, L503.6005, L501.2450, L700.6800 ####[facility] [address] [place], [address] Hemoglobin (Bld) [Mass/Vol] 12.7 g/dL Normal 12.0-15.0 [facility] Comment on above: Performed By: #### L 500.4050, L100.0100, L503.6005, L501.2450, L700.6800 ####[facility] [address] [place], [address] IG% 1.000 High 0.0-0.9 [facility] Comment on above: Result Comment: IG% - Immature Granulocytes (promyelocytes, myelocytes andmetamyelocytes) > 1% indicates that a LEFT SHIFT is Present. Performed By: #### L 500.4050, L100.0100, L503.6005, L501.2450, L700.6800 ####[facility] [address] [place], [address] Lymphocytes/100 WBC (Bld) 6.1 % Low 19-41 [facility] Comment on above: Performed By: #### L 500.4050, L100.0100, L503.6005, L501.2450, L700.6800 ####[facility] [address] [place], [address] MCH (RBC) [Entitic mass] 29.9 pg Normal 27.0-32.0 [facility] Comment on above: Performed By: #### L 500.4050, L100.0100, L503.6005, L501.2450, L700.6800 ####[facility] [address] [place], [address] MCHC (RBC) [Mass/Vol] 33.4 g/dL Normal 32-36 [facility] Comment on above: Performed By: #### L 500.4050, L100.0100, L503.6005, L501.2450, L700.6800 ####[facility] [address] [place], [address] MCV (RBC) [Entitic vol] 89.4 fL Normal 81-99 [facility] Comment on above: Performed By: #### L 500.4050, L100.0100, L503.6005, L501.2450, L700.6800 ####[facility] [address] [place], [address] Monocytes/100 WBC (Bld) 4.7 % Normal 0-10 [facility] Comment on above: Performed By: #### L 500.4050, L100.0100, L503.6005, L501.2450, L700.6800 ####[facility] [address] [place], [address] Neutrophils/100 WBC (Bld) 88.0 % High 47-70 [facility] Comment on above: Performed By: #### L 500.4050, L100.0100, L503.6005, L501.2450, L700.6800 ####[facility] [address] [place], [address] Nucleated RBC (Bld) [#/Vol] 0 10*3/uL Normal 0-5 [facility] Comment on above: Performed By: #### L 500.4050, L100.0100, L503.6005, L501.2450, L700.6800 ####[facility] [address] [place], [address] Platelet mean volume (Bld) [Entitic vol] 11.7 fL Normal 6.2-12.0 [facility] Comment on above: Performed By: #### L 500.4050, L100.0100, L503.6005, L501.2450, L700.6800 ####[facility] [address] [place], [address] Platelets (Bld) [#/Vol] 201 10*3/uL Normal 150-450 [facility] Comment on above: Performed By: #### L 500.4050, L100.0100, L503.6005, L501.2450, L700.6800 ####[facility] [address] [place], [address] RBC (Bld) [#/Vol] 4.25 10*6/uL Normal 4.2-5.4 [facility] Comment on above: Performed By: #### L 500.4050, L100.0100, L503.6005, L501.2450, L700.6800 ####[facility] [address] [place], [address] RDW SD 44.6 fl High 35.1-43.9 [facility] Comment on above: Performed By: #### L 500.4050, L100.0100, L503.6005, L501.2450, L700.6800 ####[facility] [address] [place], [address] WBC (Bld) [#/Vol] 15.2 10*3/uL High 4.4-11.0 [facility] Comment on above: Performed By: #### L 500.4050, L100.0100, L503.6005, L501.2450, L700.6800 ####[facility] [address] [place], [address] [facility] KATHLEEN VILLA ([id number]) 1995 F T Date Time Provider Department [...] Units subcutaneously every 24 hours. 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 Normal [facility] Metabolic Prof moon 11-05-2024 Albumin [Mass/Vol] 4.1 g/dL Normal 3.5-5.0 [facility] Comment on above: Performed By: #### L 500.4050, L100.0100, L503.6005, L501.2450, L700.6800 ####[facility] [address] [place], [address] Albumin/Globulin [Mass ratio] 1.5 {ratio} Normal 0.9-2.4 [facility] Comment on above: Performed By: #### L 500.4050, L100.0100, L503.6005, L501.2450, L700.6800 ####[facility] [address] [place], [address] ALK PHOS 89 U/L Normal 35-104 [facility] Comment on above: Performed By: #### L 500.4050, L100.0100, L503.6005, L501.2450, L700.6800 ####[facility] [address] [place], [address] ALT [Catalytic activity/Vol] 17 U/L Normal <=34 [facility] Comment on above: Performed By: #### L 500.4050, L100.0100, L503.6005, L501.2450, L700.6800 ####[facility] [address] [place], [address] AST [Catalytic activity/Vol] 21 U/L Normal <=31 [facility] Comment on above: Performed By: #### L 500.4050, L100.0100, L503.6005, L501.2450, L700.6800 ####[facility] [address] [place], [address] Bilirubin [Mass/Vol] 1.15 mg/dL Normal 0.00-1.30 [facility] Comment on above: Performed By: #### L 500.4050, L100.0100, L503.6005, L501.2450, L700.6800 ####[facility] [address] [place], [address] BUN/CRE 18.4 RATIO Normal 10-20 [facility] Comment on above: Performed By: #### L 500.4050, L100.0100, L503.6005, L501.2450, L700.6800 ####[facility] [address] [place], [address] Calcium [Mass/Vol] 8.2 mg/dL Normal 7.6-11.0 [facility] Comment on above: Performed By: #### L 500.4050, L100.0100, L503.6005, L501.2450, L700.6800 ####[facility] [address] [place], [address] Chloride [Moles/Vol] 94 mmol/L Low 98-108 [facility] Comment on above: Performed By: #### L 500.4050, L100.0100, L503.6005, L501.2450, L700.6800 ####[facility] [address] [place], [address] CO2 [Moles/Vol] 12.8 mmol/L Low 21.0-32.0 [facility] Comment on above: Performed By: #### L 500.4050, L100.0100, L503.6005, L501.2450, L700.6800 ####[facility] [address] [place], [address] Creatinine [Mass/Vol] 0.86 mg/dL Normal 0.70-1.20 [facility] Comment on above: Performed By: #### L 500.4050, L100.0100, L503.6005, L501.2450, L700.6800 ####[facility] [address] [place], [address] ECRCL 99.96 ml/min Normal 50-250 [facility] Comment on above: Performed By: #### L 500.4050, L100.0100, L503.6005, L501.2450, L700.6800 ####[facility] [address] [place], [address] GAP 27 High 5-15 [facility] Comment on above: Performed By: #### L 500.4050, L100.0100, L503.6005, L501.2450, L700.6800 ####[facility] [address] [place], [address] GFR/1.73 sq M.predicted among non-blacks MDRD (S/P/Bld) [Vol rate/Area] 93 mL/min/{1.73_m2} Normal >60 [facility] Comment on above: Result Comment: mL/m in/1.73m2 CKD-EPI Creatinine Equation (2020) Performed By: #### L 500.4050, L100.0100, L503.6005, L501.2450, L700.6800 ####[facility] [address] [place], [address] Globulin (S) [Mass/Vol] 2.8 g/dL Normal 2.2-4.2 [facility] Comment on above: Performed By: #### L 500.4050, L100.0100, L503.6005, L501.2450, L700.6800 ####[facility] [address] [place], [address] Glucose [Mass/Vol] 251 mg/dL High 70-99 [facility] Comment on above: Performed By: #### L 500.4050, L100.0100, L503.6005, L501.2450, L700.6800 ####[facility] [address] [place], [address] Potassium [Moles/Vol] 3.0 mmol/L Low 3.3-5.1 [facility] Comment on above: Performed By: #### L 500.4050, L100.0100, L503.6005, L501.2450, L700.6800 ####[facility] [address] [place], [address] Sodium [Moles/Vol] 134 mmol/L Normal 133-145 [facility] Comment on above: Performed By: #### L 500.4050, L100.0100, L503.6005, L501.2450, L700.6800 ####[facility] [address] [place], [address] T PROT 6.9 g/dL Normal 5.9-8.4 [facility] Comment on above: Performed By: #### L 500.4050, L100.0100, L503.6005, L501.2450, L700.6800 ####[facility] [address] [place], [address] Urea nitrogen [Mass/Vol] 16 mg/dL Normal 4-19 [facility] Comment on above: Performed By: #### L 500.4050, L100.0100, L503.6005, L501.2450, L700.6800 ####[facility] [address] [place], [address] Emergency Department Summary on 11-05-2024 Emergency Department Summary Normal [facility] Gallbladderon 11-05-2024 Gallbladder Normal [facility] H AND P Exam - Hospitaliston 11-05-2024 H&P Exam - Hospitalist Normal [facility] L501.6901on 11-05-2024 BETA-HYDROXYBUT 7.1 mmol/L Normal 0.0-0.3 [facility] Comment on above: Performed By: #### L 501.6901 ####[facility] [address] [place], [address] Lactic Acidon 11-05-2024 Lactate [Moles/Vol] mmol/L Normal 0.0-2.0 [facility] Comment on above: Order Comment: Y Performed By: #### L 500.4050, L100.0100, L503.6005, L501.2450, L700.6800 ####[facility] [address] [place], [address] Lipaseon 11-05-2024 Lipase [Catalytic activity/Vol] 13 U/L Normal 13-75 [facility] Comment on above: Result Comment: Sulma schmitz note:LIPASE revised reference range effective 22.New Lipase methodology. Expected to produce lower valuesthan the previous assay method.NEW Reference Range: 13 - 75 U/L Performed By: #### L 500.4050, L100.0100, L503.6005, L501.2450, L700.6800 ####[facility] [address] [place], [address] ,Serum,hCG Quali.on 11-05-2024 HCG, SERUM QUAL Negative Normal [facility] Comment on above: Performed By: #### L 500.4050, L100.0100, L503.6005, L501.2450, L700.6800 ####[facility] [address] [place], [address] Urinalysis, Completeon 11-05 BACTERIA 1+ /hpf Normal None Seen [facility] Comment on above: Order Comment: CLEAN CATCH Performed By: #### L 400.0001 ####[facility] [address] [place], [address] EPI,SQUAMOUS 0-5 SEEN Normal 5-10 [facility] Comment on above: Order Comment: CLEAN CATCH Performed By: #### L 400.0001 ####[facility] [address] [place], [address] WBC 0-5 SEEN Normal 0-5 [facility] Comment on above: Order Comment: CLEAN CATCH Performed By: #### L 400.0001 ####[facility] [address] [place], [address] RBC 0 SEEN Normal 0-5 [facility] Comment on above: Order Comment: CLEAN CATCH Performed By: #### L 400.0001 ####[facility] [address] [place], [address] Mucus Ql (Urine sed) 0 SEEN Normal [facility] Comment on above: Order Comment: CLEAN CATCH Performed By: #### L 400.0001 ####[facility] [address] [place], [address] Venous Blood Gason 5 Blood Gas Type ISABELLE Normal [facility] Comment on above: Performed By: #### L 9000.0810 ####[facility] [address] [place], [address] CO2 [Moles/Vol] 14 mmol/L Low 23-33 [facility] Comment on above: Performed By: #### L 9000.0810 ####[facility] [address] [place], [address] HCO3 (Bld) [Moles/Vol] 14 mmol/L Low 22-26 [facility] Comment on above: Performed By: #### L 9000.0810 ####[facility] [address] [place], [address] O2 Delivery Dev Not entered Normal [facility] Comment on above: Performed By: #### L 9000.0810 ####[facility] [address] [place], [address] SITE Not entered Normal [facility] Comment on above: Performed By: #### L 9000.0810 ####[facility] [address] [place], [address] VBG BE -11 mmol/L Low -1.0-3.5 [facility] Comment on above: Performed By: #### L 9000.0810 ####[facility] [address] [place], [address] VBG pCO2 20.7 mmHg Low 41-51 [facility] Comment on above: Performed By: #### L 9000.0810 ####[facility] [address] [place], [address] VBG pH 7.43 High 7.32-7.42 [facility] Comment on above: Performed By: #### L 9000.0810 ####[facility] [address] [place], [address] VBG PO2 68 mmHg High 25-40 [facility] Comment on above: Performed By: #### L 9000.0810 ####[facility] [address] [place], [address] VBG SO2 95 High 50-70 [facility] Comment on above: Performed By: #### L 0.0810 ####[facility] [address] [place], [address] L501.6901on 11-04-2024 BETA-HYDROXYBUT 1.5 mmol/L Normal 0.0-0.3 [facility] Comment on above: Performed By: #### L 501.6901 ####[facility] [address] [place], [address] Venous Blood Gason 5 CO2 [Moles/Vol] 20 mmol/L Low 23-33 [facility] Comment on above: Performed By: #### L 9000.0810 ####[facility] [address] [place], [address] HCO3 (Bld) [Moles/Vol] 19 mmol/L Low 22-26 [facility] Comment on above: Performed By: #### L 9000.0810 ####[facility] [address] [place], [address] VBG SO2 94 High 50-70 [facility] Comment on above: Performed By: #### L 9000.0810 ####[facility] [address] [place], [address] Blood Gas Type ISABELLE Normal [facility] Comment on above: Performed By: #### L 900.0810 ####[facility] [address] [place], [address] VBG pCO2 30.3 mmHg Low 41-51 [facility] Comment on above: Performed By: #### L 9000.0810 ####[facility] [address] [place], [address] VBG pH 7.40 Normal 7.32-7.42 [facility] Comment on above: Performed By: #### L 9000.0810 ####[facility] [address] [place], [address] VBG PO2 71 mmHg High 25-40 [facility] Comment on above: Performed By: #### L 9000.0810 ####[facility] [address] [place], [address] Abdomen/Pelvis W IV Cont ONL Yon 11-03-2024 Abdomen/Pelvis W IV Cont ONLY Normal [facility] CBC W/Diff, Automatedon Absolute Lymph 1.92 X10 3/uL Normal 0.83-4.51 [facility] Comment on above: Performed By: #### L 501.2450, L100.0100, L500.4050 ####[facility] [address] [place], [address] Absolute Neut 8.4 X10 3/uL High 2.0-7.7 [facility] Comment on above: Performed By: #### L 501.2450, L100.0100, L500.4050 ####[facility] [address] [place], [address] Basophils/100 WBC (Bld) 0.5 % Normal 0-1 [facility] Comment on above: Performed By: #### L 501.2450, L100.0100, L500.4050 ####[facility] [address] [place], [address] Eosinophils/100 WBC (Bld) 0.3 % Normal 0-5 [facility] Comment on above: Performed By: #### L 501.2450, L100.0100, L500.4050 ####[facility] [address] [place], [address] Erythrocyte distribution width (RBC) [Ratio] 13.2 % Normal 11.6-14.6 [facility] Comment on above: Performed By: #### L 501.2450, L100.0100, L500.4050 ####[facility] [address] [place], [address] Hematocrit (Bld) [Volume fraction] 42.1 % Normal 37-47 [facility] Comment on above: Performed By: #### L 501.2450, L100.0100, L500.4050 ####[facility] [address] [place], [address] Hemoglobin (Bld) [Mass/Vol] 14.2 g/dL Normal 12.0-15.0 [facility] Comment on above: Performed By: #### L 501.2450, L100.0100, L500.4050 ####[facility] [address] [place], [address] IG% 0.800 Normal 0.0-0.9 [facility] Comment on above: Result Comment: IG% - Immature Granulocytes (promyelocytes, myelocytes andmetamyelocytes) > 1% indicates that a LEFT SHIFT is Present. Performed By: #### L 501.2450, L100.0100, L500.4050 ####[facility] [address] [place], [address] Lymphocytes/100 WBC (Bld) 17.5 % Low 19-41 [facility] Comment on above: Performed By: #### L 501.2450, L100.0100, L500.4050 ####[facility] [address] [place], [address] MCH (RBC) [Entitic mass] 29.3 pg Normal 27.0-32.0 [facility] Comment on above: Performed By: #### L 501.2450, L100.0100, L500.4050 ####[facility] [address] [place], [address] MCHC (RBC) [Mass/Vol] 33.7 g/dL Normal 32-36 [facility] Comment on above: Performed By: #### L 501.2450, L100.0100, L500.4050 ####[facility] [address] [place], [address] MCV (RBC) [Entitic vol] 87.0 fL Normal 81-99 [facility] Comment on above: Performed By: #### L 501.2450, L100.0100, L500.4050 ####[facility] [address] [place], [address] Monocytes/100 WBC (Bld) 4.6 % Normal 0-10 [facility] Comment on above: Performed By: #### L 501.2450, L100.0100, L500.4050 ####[facility] [address] [place], [address] Neutrophils/100 WBC (Bld) 76.3 % High 47-70 [facility] Comment on above: Performed By: #### L 501.2450, L100.0100, L500.4050 ####[facility] [facility] [address] [place], [address] Nucleated RBC (Bld) [#/Vol] 0 10*3/uL Normal 0-5 [facility] Comment on above: Performed By: #### L 501.2450, L100.0100, L500.4050 ####[facility] [address] [place], [address] Platelet mean volume (Bld) [Entitic vol] 12.4 fL High 6.2-12.0 [facility] Comment on above: Performed By: #### L 501.2450, L100.0100, L500.4050 ####[facility] [address] [place], [address] Platelets (Bld) [#/Vol] 263 10*3/uL Normal 150-450 [facility] Comment on above: Performed By: #### L 501.2450, L100.0100, L500.4050 ####[facility] [address] [place], [address] RBC (Bld) [#/Vol] 4.84 10*6/uL Normal 4.2-5.4 [facility] Comment on above: Performed By: #### L 501.2450, L100.0100, L500.4050 ####[facility] [address] [place], [address] RDW SD 41.6 fl Normal 35.1-43.9 [facility] Comment on above: Performed By: #### L 501.2450, L100.0100, L500.4050 ####[facility] [address] [place], [address] WBC (Bld) [#/Vol] 11.0 10*3/uL Normal 4.4-11.0 [facility] Comment on above: Performed By: #### L 501.2450, L100.0100, L500.4050 ####[facility] [address] [place], [address] Comprehensive Metabolic Prof moon 11-03-2024 Albumin [Mass/Vol] 4.7 g/dL Normal 3.5-5.0 [facility] Comment on above: Performed By: #### L 501.2450, L100.0100, L500.4050 ####[facility] [address] [place], [address] Albumin/Globulin [Mass ratio] 1.4 {ratio} Normal 0.9-2.4 [facility] Comment on above: Performed By: #### L 501.2450, L100.0100, L500.4050 ####[facility] [address] [place], [address] ALK PHOS 101 U/L Normal 35-104 [facility] Comment on above: Performed By: #### L 501.2450, L100.0100, L500.4050 ####[facility] [address] [place], [address] ALT [Catalytic activity/Vol] 22 U/L Normal <=34 [facility] Comment on above: Performed By: #### L 501.2450, L100.0100, L500.4050 ####[facility] [address] [place], [address] AST [Catalytic activity/Vol] 20 U/L Normal <=31 [facility] Comment on above: Result Comment: Hemo lysis present, Results??could be affected.?? Performed By: #### L 501.2450, L100.0100, L500.4050 ####[facility] [address] [place], [address] Bilirubin [Mass/Vol] 0.98 mg/dL Normal 0.00-1.30 [facility] Comment on above: Performed By: #### L 501.2450, L100.0100, L500.4050 ####[facility] [address] [place], [address] BUN/CRE 17.6 RATIO Normal 10-20 [facility] Comment on above: Performed By: #### L 501.2450, L100.0100, L500.4050 ####[facility] [address] [place], [address] Calcium [Mass/Vol] 9.9 mg/dL Normal 7.6-11.0 [facility] Comment on above: Performed By: #### L 501.2450, L100.0100, L500.4050 ####[facility] [address] [place], [address] Chloride [Moles/Vol] 97 mmol/L Low 98-108 [facility] Comment on above: Performed By: #### L 501.2450, L100.0100, L500.4050 ####[facility] [address] [place], [address] CO2 [Moles/Vol] 18.2 mmol/L Low 21.0-32.0 [facility] Comment on above: Performed By: #### L 501.2450, L100.0100, L500.4050 ####[facility] [address] [place], [address] Creatinine [Mass/Vol] 0.84 mg/dL Normal 0.70-1.20 [facility] Comment on above: Performed By: #### L 501.2450, L100.0100, L500.4050 ####[facility] [address] [place], [address] ECRCL 102.34 ml/min Normal 50-250 [facility] Comment on above: Performed By: #### L 501.2450, L100.0100, L500.4050 ####[facility] [address] [place], [address] GAP 18 High 5-15 [facility] Comment on above: Performed By: #### L 501.2450, L100.0100, L500.4050 ####[facility] [address] [place], [address] GFR/1.73 sq M.predicted among non-blacks MDRD (S/P/Bld) [Vol rate/Area] 96 mL/min/{1.73_m2} Normal >60 [facility] Comment on above: Result Comment: mL/m in/1.73m2 CKD-EPI Creatinine Equation (2020) Performed By: #### L 501.2450, L100.0100, L500.4050 ####[facility] [address] [place], [address] Globulin (S) [Mass/Vol] 3.3 g/dL Normal 2.2-4.2 [facility] Comment on above: Performed By: #### L 501.2450, L100.0100, L500.4050 ####[facility] [address] [place], [address] Glucose [Mass/Vol] 375 mg/dL High 70-99 [facility] Comment on above: Performed By: #### L 501.2450, L100.0100, L500.4050 ####[facility] [address] [place], [address] Potassium [Moles/Vol] 4.4 mmol/L Normal 3.3-5.1 [facility] Comment on above: Result Comment: Hemo lysis present, Results??could be affected.?? Performed By: #### L 501.2450, L100.0100, L500.4050 ####[facility] [address] [place], [address] Sodium [Moles/Vol] 133 mmol/L Normal 133-145 [facility] Comment on above: Performed By: #### L 501.2450, L100.0100, L500.4050 ####[facility] [address] [place], [address] T PROT 7.9 g/dL Normal 5.9-8.4 [facility] Comment on above: Performed By: #### L 501.2450, L100.0100, L500.4050 ####[facility] [address] [place], [address] Urea nitrogen [Mass/Vol] 15 mg/dL Normal 4-19 [facility] Comment on above: Performed By: #### L 501.2450, L100.0100, L500.4050 ####[facility] [address] [place], [address] Emergency Department Summary on 11-03-2024 Emergency Department Summary Normal [facility] Lipaseon 11-03-2024 Lipase [Catalytic activity/Vol] 14 U/L Normal 13-75 [facility] Comment on above: Result Comment: Sulma schmitz note:LIPASE revised reference range effective 22.New Lipase methodology. Expected to produce lower valuesthan the previous assay method.NEW Reference Range: 13 - 75 U/L Performed By: #### L 501.2450, L100.0100, L500.4050 ####[facility] [address] [place], [address] Urinalysis, Completeon 11-03 BACTERIA RARE Normal None Seen [facility] Comment on above: Order Comment: CLEAN CATCH Performed By: #### L 400.0001 ####[facility] [address] [place], [address] EPI,SQUAMOUS 0-5 SEEN Normal 5-10 [facility] Comment on above: Order Comment: CLEAN CATCH Performed By: #### L 400.0001 ####[facility] [address] [place], [address] RBC 0 SEEN Normal 0-5 [facility] Comment on above: Order Comment: CLEAN CATCH Performed By: #### L 400.0001 ####[facility] [address] [place], [address] WBC 0-5 SEEN Normal 0-5 [facility] Comment on above: Order Comment: CLEAN CATCH Performed By: #### L 400.0001 ####[facility] [address] [place], [address] BILIRUBIN URINE Negative Normal Negative [facility] Comment on above: Order Comment: CLEAN CATCH Performed By: #### L 400.0001 ####[facility] [address] [place], [address] Clarity (U) Turbid Normal Clear [facility] Comment on above: Order Comment: CLEAN CATCH Performed By: #### L 400.0001 ####[facility] [address] [place], [address] Color (U) Straw Normal Yellow [facility] Comment on above: Order Comment: CLEAN CATCH Performed By: #### L 400.0001 ####[facility] [address] [place], [address] GLUCOSE, UR 1000 mg/dl Abnormal Normal [facility] Comment on above: Order Comment: CLEAN CATCH Performed By: #### L 400.0001 ####[facility] [address] [place], [address] KETONE UR 50 mg/dl Abnormal Negative [facility] Comment on above: Order Comment: CLEAN CATCH Performed By: #### L 400.0001 ####[facility] [address] [place], [address] LEUK ESTERASE Negative Normal Negative [facility] Comment on above: Order Comment: CLEAN CATCH Performed By: #### L 400.0001 ####[facility] [address] [place], [address] Nitrite Ql (U) Negative Normal Negative [facility] Comment on above: Order Comment: CLEAN CATCH Performed By: #### L 400.0001 ####[facility] [address] [place], [address] OCCULT BLOOD-UR Negative Normal Negative [facility] Comment on above: Order Comment: CLEAN CATCH Performed By: #### L 400.0001 ####[facility] [address] [place], [address] pH UR 6.0 Normal 5.0 - 8.0 [facility] Comment on above: Order Comment: CLEAN CATCH Performed By: #### L 400.0001 ####[facility] [address] [place], [address] PROT DIPSTX Negative Normal Negative [facility] Comment on above: Order Comment: CLEAN CATCH Performed By: #### L 400.0001 ####[facility] [address] [place], [address] SP.GR. DIPSTX 1.015 Normal 1.002-1.030 [facility] Comment on above: Order Comment: CLEAN CATCH Performed By: #### L 400.0001 ####[facility] [address] [place], [address] UROBILI Normal Normal Normal [facility] Comment on above: Order Comment: CLEAN CATCH Performed By: #### L 400.0001 ####[facility] [address] [place], [address] Mucus Ql (Urine sed) 0 SEEN Normal [facility] Comment on above: Order Comment: CLEAN CATCH Performed By: #### L 400.0001 ####[facility] [address] [place], [address] Basic Metabolic Profile (BMP )on 10-27-2024 BUN Normal 7-18 [facility] Comment on above: Result Comment: Canc elled via OM: Order cancelled - Patient discharged Performed By: #### L 100.0100, L500.2500 ####[facility] [address] [place], [address] BUN/CRE Normal 10-20 [facility] Comment on above: Result Comment: Canc elled via OM: Order cancelled - Patient discharged Performed By: #### L 100.0100, L500.2500 ####[facility] [address] [place], [address] CA,Total Normal 8.5-10.1 [facility] Comment on above: Result Comment: Canc elled via OM: Order cancelled - Patient discharged Performed By: #### L 100.0100, L500.2500 ####[facility] [address] [place], [address] CL Normal 98-107 [facility] Comment on above: Result Comment: Canc elled via OM: Order cancelled - Patient discharged Performed By: #### L 100.0100, L500.2500 ####[facility] [address] [place], [address] CO2 Normal 21.0-32.0 [facility] Comment on above: Result Comment: Canc elled via OM: Order cancelled - Patient discharged Performed By: #### L 100.0100, L500.2500 ####[facility] [address] [place], [address] CREAT,SERUM Normal 0.55-1.02 [facility] Comment on above: Result Comment: Canc elled via OM: Order cancelled - Patient discharged Performed By: #### L 100.0100, L500.2500 ####[facility] [address] [place], [address] EST GFR Normal >60 [facility] Comment on above: Result Comment: Canc elled via OM: Order cancelled - Patient discharged Performed By: #### L 100.0100, L500.2500 ####[facility] [address] [place], [address] EST GFR - AA Normal >60 [facility] Comment on above: Result Comment: Canc elled via OM: Order cancelled - Patient discharged Performed By: #### L 100.0100, L500.2500 ####[facility] [address] [place], [address] GAP Normal 5-15 [facility] Comment on above: Result Comment: Canc elled via OM: Order cancelled - Patient discharged Performed By: #### L 100.0100, L500.2500 ####[facility] [address] [place], [address] GLU Normal 74-106 [facility] Comment on above: Result Comment: Canc elled via OM: Order cancelled - Patient discharged Performed By: #### L 100.0100, L500.2500 ####[facility] [address] [place], [address] Potassium Normal 3.5-5.1 [facility] Comment on above: Result Comment: Canc elled via OM: Order cancelled - Patient discharged Performed By: #### L 100.0100, L500.2500 ####[facility] [address] [place], [address] Basic Metabolic Profile (BMP) Normal 136-145 [facility] Comment on above: Result Comment: Canc elled via OM: Order cancelled - Patient discharged Performed By: #### L 100.0100, L500.2500 ####[facility] [address] [place], [address] CBC W/Diff, Automatedon 03-0 2-2024 Absolute Neut Normal 2.0-7.7 [facility] Comment on above: Result Comment: Canc elled via OM: Order cancelled - Patient discharged Performed By: #### L 100.0100, L500.2500 ####[facility] [address] [place], [address] HCT Normal 37-47 [facility] Comment on above: Result Comment: Canc elled via OM: Order cancelled - Patient discharged Performed By: #### L 100.0100, L500.2500 ####[facility] [address] [place], [address] HGB Normal 12.0-15.0 [facility] Comment on above: Result Comment: Canc elled via OM: Order cancelled - Patient discharged Performed By: #### L 100.0100, L500.2500 ####[facility] [address] [place], [address] MCH Normal 27.0-32.0 [facility] Comment on above: Result Comment: Canc elled via OM: Order cancelled - Patient discharged Performed By: #### L 100.0100, L500.2500 ####[facility] [address] [place], [address] MCHC Normal 32-36 [facility] Comment on above: Result Comment: Canc elled via OM: Order cancelled - Patient discharged Performed By: #### L 100.0100, L500.2500 ####[facility] [address] [place], [address] MCV Normal 81-99 [facility] Comment on above: Result Comment: Canc elled via OM: Order cancelled - Patient discharged Performed By: #### L 100.0100, L500.2500 ####[facility] [address] [place], [address] NEUT% Normal 47-70 [facility] Comment on above: Result Comment: Canc elled via OM: Order cancelled - Patient discharged Performed By: #### L 100.0100, L500.2500 ####[facility] [address] [place], [address] PLT Normal 150-450 [facility] Comment on above: Result Comment: Canc elled via OM: Order cancelled - Patient discharged Performed By: #### L 100.0100, L500.2500 ####[facility] [address] [place], [address] RBC Normal 4.2-5.4 [facility] Comment on above: Result Comment: Canc elled via OM: Order cancelled - Patient discharged Performed By: #### L 100.0100, L500.2500 ####[facility] [address] [place], [address] RDW CV Normal 11.6-14.6 [facility] Comment on above: Result Comment: Canc elled via OM: Order cancelled - Patient discharged Performed By: #### L 100.0100, L500.2500 ####[facility] [address] [place], [address] RDW SD Normal 35.1-43.9 [facility] Comment on above: Result Comment: Canc elled via OM: Order cancelled - Patient discharged Performed By: #### L 100.0100, L500.2500 ####[facility] [address] [place], [address] WBC Normal 4.4-11.0 [facility] Comment on above: Result Comment: Canc elled via OM: Order cancelled - Patient discharged Performed By: #### L 100.0100, L500.2500 ####[facility] [address] [place], [address] Basic Metabolic Profile (BMP )on 10-26-2024 BUN Normal 7-18 [facility] Comment on above: Result Comment: Canc elled via OM: Order cancelled - Patient discharged Performed By: #### L 100.0100, L500.2500 ####[facility] [address] [place], [address] BUN/CRE Normal 10-20 [facility] Comment on above: Result Comment: Canc elled via OM: Order cancelled - Patient discharged Performed By: #### L 100.0100, L500.2500 ####[facility] [address] [place], [address] CA,Total Normal 8.5-10.1 [facility] Comment on above: Result Comment: Canc elled via OM: Order cancelled - Patient discharged Performed By: #### L 100.0100, L500.2500 ####[facility] [address] [place], [address] CL Normal 98-107 [facility] Comment on above: Result Comment: Canc elled via OM: Order cancelled - Patient discharged Performed By: #### L 100.0100, L500.2500 ####[facility] [address] [place], [address] CO2 Normal 21.0-32.0 [facility] Comment on above: Result Comment: Canc elled via OM: Order cancelled - Patient discharged Performed By: #### L 100.0100, L500.2500 ####[facility] [address] [place], [address] CREAT,SERUM Normal 0.55-1.02 [facility] Comment on above: Result Comment: Canc elled via OM: Order cancelled - Patient discharged Performed By: #### L 100.0100, L500.2500 ####[facility] [address] [place], [address] EST GFR Normal >60 [facility] Comment on above: Result Comment: Canc elled via OM: Order cancelled - Patient discharged Performed By: #### L 100.0100, L500.2500 ####[facility] [address] [place], [address] EST GFR - AA Normal >60 [facility] Comment on above: Result Comment: Canc elled via OM: Order cancelled - Patient discharged Performed By: #### L 100.0100, L500.2500 ####[facility] [address] [place], [address] GAP Normal 5-15 [facility] Comment on above: Result Comment: Canc elled via OM: Order cancelled - Patient discharged Performed By: #### L 100.0100, L500.2500 ####[facility] [address] [place], [address] GLU Normal 74-106 [facility] Comment on above: Result Comment: Canc elled via OM: Order cancelled - Patient discharged Performed By: #### L 100.0100, L500.2500 ####[facility] [address] [place], [address] Potassium Normal 3.5-5.1 [facility] Comment on above: Result Comment: Canc elled via OM: Order cancelled - Patient discharged Performed By: #### L 100.0100, L500.2500 ####[facility] [address] [place], [address] Basic Metabolic Profile (BMP) Normal 136-145 [facility] Comment on above: Result Comment: Canc elled via OM: Order cancelled - Patient discharged Performed By: #### L 100.0100, L500.2500 ####[facility] [address] [place], [address] CBC W/Diff, Automatedon 03-0 Absolute Neut Normal 2.0-7.7 [facility] Comment on above: Result Comment: Canc elled via OM: Order cancelled - Patient discharged Performed By: #### L 100.0100, L500.2500 ####[facility] [address] [place], [address] HCT Normal 37-47 [facility] Comment on above: Result Comment: Canc elled via OM: Order cancelled - Patient discharged Performed By: #### L 100.0100, L500.2500 ####[facility] [address] [place], [address] HGB Normal 12.0-15.0 [facility] Comment on above: Result Comment: Canc elled via OM: Order cancelled - Patient discharged Performed By: #### L 100.0100, L500.2500 ####[facility] [address] [place], [address] MCH Normal 27.0-32.0 [facility] Comment on above: Result Comment: Canc elled via OM: Order cancelled - Patient discharged Performed By: #### L 100.0100, L500.2500 ####[facility] [address] [place], [address] MCHC Normal 32-36 [facility] Comment on above: Result Comment: Canc elled via OM: Order cancelled - Patient discharged Performed By: #### L 100.0100, L500.2500 ####[facility] [address] [place], [address] MCV Normal 81-99 [facility] Comment on above: Result Comment: Canc elled via OM: Order cancelled - Patient discharged Performed By: #### L 100.0100, L500.2500 ####[facility] [address] [place], [address] NEUT% Normal 47-70 [facility] Comment on above: Result Comment: Canc elled via OM: Order cancelled - Patient discharged Performed By: #### L 100.0100, L500.2500 ####[facility] [address] [place], [address] PLT Normal 150-450 [facility] Comment on above: Result Comment: Canc elled via OM: Order cancelled - Patient discharged Performed By: #### L 100.0100, L500.2500 ####[facility] [address] [place], [address] RBC Normal 4.2-5.4 [facility] Comment on above: Result Comment: Canc elled via OM: Order cancelled - Patient discharged Performed By: #### L 100.0100, L500.2500 ####[facility] [address] [place], [address] RDW CV Normal 11.6-14.6 [facility] Comment on above: Result Comment: Canc elled via OM: Order cancelled - Patient discharged Performed By: #### L 100.0100, L500.2500 ####[facility] [address] [place], [address] RDW SD Normal 35.1-43.9 [facility] Comment on above: Result Comment: Canc elled via OM: Order cancelled - Patient discharged Performed By: #### L 100.0100, L500.2500 ####[facility] [address] [place], [address] WBC Normal 4.4-11.0 [facility] Comment on above: Result Comment: Canc elled via OM: Order cancelled - Patient discharged Performed By: #### L 100.0100, L500.2500 ####[facility] [address] [place], [address] Basic Metabolic Profile (BMP )on 10-25-2024 BUN Normal 7-18 [facility] Comment on above: Result Comment: Canc elled via OM: Order cancelled - Patient discharged Performed By: #### L 100.0100, L500.2500 ####[facility] [address] [place], [address] BUN/CRE Normal 10-20 [facility] Comment on above: Result Comment: Canc elled via OM: Order cancelled - Patient discharged Performed By: #### L 100.0100, L500.2500 ####[facility] [address] [place], [address] CA,Total Normal 8.5-10.1 [facility] Comment on above: Result Comment: Canc elled via OM: Order cancelled - Patient discharged Performed By: #### L 100.0100, L500.2500 ####[facility] [address] [place], [address] CL Normal 98-107 [facility] Comment on above: Result Comment: Canc elled via OM: Order cancelled - Patient discharged Performed By: #### L 100.0100, L500.2500 ####[facility] [address] [place], [address] CO2 Normal 21.0-32.0 [facility] Comment on above: Result Comment: Canc elled via OM: Order cancelled - Patient discharged Performed By: #### L 100.0100, L500.2500 ####[facility] [address] [place], [address] CREAT,SERUM Normal 0.55-1.02 [facility] Comment on above: Result Comment: Canc elled via OM: Order cancelled - Patient discharged Performed By: #### L 100.0100, L500.2500 ####[facility] [address] [place], [address] EST GFR Normal >60 [facility] Comment on above: Result Comment: Canc elled via OM: Order cancelled - Patient discharged Performed By: #### L 100.0100, L500.2500 ####[facility] [address] [place], [address] EST GFR - AA Normal >60 [facility] Comment on above: Result Comment: Canc elled via OM: Order cancelled - Patient discharged Performed By: #### L 100.0100, L500.2500 ####[facility] [address] [place], [address] GAP Normal 5-15 [facility] Comment on above: Result Comment: Canc elled via OM: Order cancelled - Patient discharged Performed By: #### L 100.0100, L500.2500 ####[facility] [address] [place], [address] GLU Normal 74-106 [facility] Comment on above: Result Comment: Canc elled via OM: Order cancelled - Patient discharged Performed By: #### L 100.0100, L500.2500 ####[facility] [address] [place], [address] Potassium Normal 3.5-5.1 [facility] Comment on above: Result Comment: Canc elled via OM: Order cancelled - Patient discharged Performed By: #### L 100.0100, L500.2500 ####[facility] [address] [place], [address] Basic Metabolic Profile (BMP) Normal 136-145 [facility] Comment on above: Result Comment: Canc elled via OM: Order cancelled - Patient discharged Performed By: #### L 100.0100, L500.2500 ####[facility] [address] [place], [address] CBC W/Diff, Automatedon 02- Absolute Neut Normal 2.0-7.7 [facility] Comment on above: Result Comment: Canc elled via OM: Order cancelled - Patient discharged Performed By: #### L 100.0100, L500.2500 ####[facility] [address] [place], [address] HCT Normal 37-47 [facility] Comment on above: Result Comment: Canc elled via OM: Order cancelled - Patient discharged Performed By: #### L 100.0100, L500.2500 ####[facility] [address] [place], [address] HGB Normal 12.0-15.0 [facility] Comment on above: Result Comment: Canc elled via OM: Order cancelled - Patient discharged Performed By: #### L 100.0100, L500.2500 ####[facility] [address] [place], [address] MCH Normal 27.0-32.0 [facility] Comment on above: Result Comment: Canc elled via OM: Order cancelled - Patient discharged Performed By: #### L 100.0100, L500.2500 ####[facility] [address] [place], [address] MCHC Normal 32-36 [facility] Comment on above: Result Comment: Canc elled via OM: Order cancelled - Patient discharged Performed By: #### L 100.0100, L500.2500 ####[facility] [address] [place], [address] MCV Normal 81-99 [facility] Comment on above: Result Comment: Canc elled via OM: Order cancelled - Patient discharged Performed By: #### L 100.0100, L500.2500 ####[facility] [address] [place], [address] NEUT% Normal 47-70 [facility] Comment on above: Result Comment: Canc elled via OM: Order cancelled - Patient discharged Performed By: #### L 100.0100, L500.2500 ####[facility] [address] [place], [address] PLT Normal 150-450 [facility] Comment on above: Result Comment: Canc elled via OM: Order cancelled - Patient discharged Performed By: #### L 100.0100, L500.2500 ####[facility] [address] [place], [address] RBC Normal 4.2-5.4 [facility] Comment on above: Result Comment: Canc elled via OM: Order cancelled - Patient discharged Performed By: #### L 100.0100, L500.2500 ####[facility] [address] [place], [address] RDW CV Normal 11.6-14.6 [facility] Comment on above: Result Comment: Canc elled via OM: Order cancelled - Patient discharged Performed By: #### L 100.0100, L500.2500 ####[facility] [address] [place], [address] RDW SD Normal 35.1-43.9 [facility] Comment on above: Result Comment: Canc elled via OM: Order cancelled - Patient discharged Performed By: #### L 100.0100, L500.2500 ####[facility] [address] [place], [address] WBC Normal 4.4-11.0 [facility] Comment on above: Result Comment: Canc elled via OM: Order cancelled - Patient discharged Performed By: #### L 100.0100, L500.2500 ####[facility] [address] [place], [address] Basic Metabolic Profile (BMP )on 10-24-2024 BUN Normal 7-18 [facility] Comment on above: Result Comment: Canc elled via OM: Order cancelled - Patient discharged Performed By: #### L 500.2500, L100.0100 ####[facility] [address] [place], [address] BUN/CRE Normal 10-20 [facility] Comment on above: Result Comment: Canc elled via OM: Order cancelled - Patient discharged Performed By: #### L 500.2500, L100.0100 ####[facility] [address] [place], [address] CA,Total Normal 8.5-10.1 [facility] Comment on above: Result Comment: Canc elled via OM: Order cancelled - Patient discharged Performed By: #### L 500.2500, L100.0100 ####[facility] [address] [place], [address] CL Normal 98-107 [facility] Comment on above: Result Comment: Canc elled via OM: Order cancelled - Patient discharged Performed By: #### L 500.2500, L100.0100 ####[facility] [address] [place], [address] CO2 Normal 21.0-32.0 [facility] Comment on above: Result Comment: Canc elled via OM: Order cancelled - Patient discharged Performed By: #### L 500.2500, L100.0100 ####[facility] [address] [place], [address] CREAT,SERUM Normal 0.55-1.02 [facility] Comment on above: Result Comment: Canc elled via OM: Order cancelled - Patient discharged Performed By: #### L 500.2500, L100.0100 ####[facility] [address] [place], [address] EST GFR Normal >60 [facility] Comment on above: Result Comment: Canc elled via OM: Order cancelled - Patient discharged Performed By: #### L 500.2500, L100.0100 ####[facility] [address] [place], [address] EST GFR - AA Normal >60 [facility] Comment on above: Result Comment: Canc elled via OM: Order cancelled - Patient discharged Performed By: #### L 500.2500, L100.0100 ####[facility] [address] [place], [address] GAP Normal 5-15 [facility] Comment on above: Result Comment: Canc elled via OM: Order cancelled - Patient discharged Performed By: #### L 500.2500, L100.0100 ####[facility] [address] [place], [address] GLU Normal 74-106 [facility] Comment on above: Result Comment: Canc elled via OM: Order cancelled - Patient discharged Performed By: #### L 500.2500, L100.0100 ####[facility] [address] [place], [address] Potassium Normal 3.5-5.1 [facility] Comment on above: Result Comment: Canc elled via OM: Order cancelled - Patient discharged Performed By: #### L 500.2500, L100.0100 ####[facility] [address] [place], [address] Basic Metabolic Profile (BMP) Normal 136-145 [facility] Comment on above: Result Comment: Canc elled via OM: Order cancelled - Patient discharged Performed By: #### L 500.2500, L100.0100 ####[facility] [address] [place], [address] CBC W/Diff, Automatedon 02-2 Absolute Neut Normal 2.0-7.7 [facility] Comment on above: Result Comment: Canc elled via OM: Order cancelled - Patient discharged Performed By: #### L 500.2500, L100.0100 ####[facility] [address] [place], [address] HCT Normal 37-47 [facility] Comment on above: Result Comment: Canc elled via OM: Order cancelled - Patient discharged Performed By: #### L 500.2500, L100.0100 ####[facility] [address] [place], [address] HGB Normal 12.0-15.0 [facility] Comment on above: Result Comment: Canc elled via OM: Order cancelled - Patient discharged Performed By: #### L 500.2500, L100.0100 ####[facility] [address] [place], [address] MCH Normal 27.0-32.0 [facility] Comment on above: Result Comment: Canc elled via OM: Order cancelled - Patient discharged Performed By: #### L 500.2500, L100.0100 ####[facility] [address] [place], [address] MCHC Normal 32-36 [facility] Comment on above: Result Comment: Canc elled via OM: Order cancelled - Patient discharged Performed By: #### L 500.2500, L100.0100 ####[facility] [address] [place], [address] MCV Normal 81-99 [facility] Comment on above: Result Comment: Canc elled via OM: Order cancelled - Patient discharged Performed By: #### L 500.2500, L100.0100 ####[facility] [address] [place], [address] NEUT% Normal 47-70 [facility] Comment on above: Result Comment: Canc elled via OM: Order cancelled - Patient discharged Performed By: #### L 500.2500, L100.0100 ####[facility] [address] [place], [address] PLT Normal 150-450 [facility] Comment on above: Result Comment: Canc elled via OM: Order cancelled - Patient discharged Performed By: #### L 500.2500, L100.0100 ####[facility] [address] [place], [address] RBC Normal 4.2-5.4 [facility] Comment on above: Result Comment: Canc elled via OM: Order cancelled - Patient discharged Performed By: #### L 500.2500, L100.0100 ####[facility] [address] [place], [address] RDW CV Normal 11.6-14.6 [facility] Comment on above: Result Comment: Canc elled via OM: Order cancelled - Patient discharged Performed By: #### L 500.2500, L100.0100 ####[facility] [address] [place], [address] RDW SD Normal 35.1-43.9 [facility] Comment on above: Result Comment: Canc elled via OM: Order cancelled - Patient discharged Performed By: #### L 500.2500, L100.0100 ####[facility] [address] [place], [address] WBC Normal 4.4-11.0 [facility] Comment on above: Result Comment: Canc elled via OM: Order cancelled - Patient discharged Performed By: #### L 500.2500, L100.0100 ####[facility] [address] [place], [address] Basic Metabolic Profile (BMP )on 10-23-2024 BUN Normal 7-18 [facility] Comment on above: Result Comment: Canc elled via OM: Order cancelled - Patient discharged Performed By: #### L 500.2500, L100.0100 ####[facility] [address] [place], [address] BUN/CRE Normal 10-20 [facility] Comment on above: Result Comment: Canc elled via OM: Order cancelled - Patient discharged Performed By: #### L 500.2500, L100.0100 ####[facility] [address] [place], [address] CA,Total Normal 8.5-10.1 [facility] Comment on above: Result Comment: Canc elled via OM: Order cancelled - Patient discharged Performed By: #### L 500.2500, L100.0100 ####[facility] [address] [place], [address] CL Normal 98-107 [facility] Comment on above: Result Comment: Canc elled via OM: Order cancelled - Patient discharged Performed By: #### L 500.2500, L100.0100 ####[facility] [address] [place], [address] CO2 Normal 21.0-32.0 [facility] Comment on above: Result Comment: Canc elled via OM: Order cancelled - Patient discharged Performed By: #### L 500.2500, L100.0100 ####[facility] [address] [place], [address] CREAT,SERUM Normal 0.55-1.02 [facility] Comment on above: Result Comment: Canc elled via OM: Order cancelled - Patient discharged Performed By: #### L 500.2500, L100.0100 ####[facility] [address] [place], [address] EST GFR Normal >60 [facility] Comment on above: Result Comment: Canc elled via OM: Order cancelled - Patient discharged Performed By: #### L 500.2500, L100.0100 ####[facility] [address] [place], [address] EST GFR - AA Normal >60 [facility] Comment on above: Result Comment: Canc elled via OM: Order cancelled - Patient discharged Performed By: #### L 500.2500, L100.0100 ####[facility] [address] [place], [address] GAP Normal 5-15 [facility] Comment on above: Result Comment: Canc elled via OM: Order cancelled - Patient discharged Performed By: #### L 500.2500, L100.0100 ####[facility] [address] [place], [address] GLU Normal 74-106 [facility] Comment on above: Result Comment: Canc elled via OM: Order cancelled - Patient discharged Performed By: #### L 500.2500, L100.0100 ####[facility] [address] [place], [address] Potassium Normal 3.5-5.1 [facility] Comment on above: Result Comment: Canc elled via OM: Order cancelled - Patient discharged Performed By: #### L 500.2500, L100.0100 ####[facility] [address] [place], [address] Basic Metabolic Profile (BMP) Normal 136-145 [facility] Comment on above: Result Comment: Canc elled via OM: Order cancelled - Patient discharged Performed By: #### L 500.2500, L100.0100 ####[facility] [address] [place], [address] CBC W/Diff, Automatedon 02-2 Absolute Neut Normal 2.0-7.7 [facility] Comment on above: Result Comment: Canc elled via OM: Order cancelled - Patient discharged Performed By: #### L 500.2500, L100.0100 ####[facility] [address] [place], [address] HCT Normal 37-47 [facility] Comment on above: Result Comment: Canc elled via OM: Order cancelled - Patient discharged Performed By: #### L 500.2500, L100.0100 ####[facility] [address] [place], [address] HGB Normal 12.0-15.0 [facility] Comment on above: Result Comment: Canc elled via OM: Order cancelled - Patient discharged Performed By: #### L 500.2500, L100.0100 ####[facility] [address] [place], [address] MCH Normal 27.0-32.0 [facility] Comment on above: Result Comment: Canc elled via OM: Order cancelled - Patient discharged Performed By: #### L 500.2500, L100.0100 ####[facility] [address] [place], [address] MCHC Normal 32-36 [facility] Comment on above: Result Comment: Canc elled via OM: Order cancelled - Patient discharged Performed By: #### L 500.2500, L100.0100 ####[facility] [address] [place], [address] MCV Normal 81-99 [facility] Comment on above: Result Comment: Canc elled via OM: Order cancelled - Patient discharged Performed By: #### L 500.2500, L100.0100 ####[facility] [address] [place], [address] NEUT% Normal 47-70 [facility] Comment on above: Result Comment: Canc elled via OM: Order cancelled - Patient discharged Performed By: #### L 500.2500, L100.0100 ####[facility] [address] [place], [address] PLT Normal 150-450 [facility] Comment on above: Result Comment: Canc elled via OM: Order cancelled - Patient discharged Performed By: #### L 500.2500, L100.0100 ####[facility] [address] [place], [address] RBC Normal 4.2-5.4 [facility] Comment on above: Result Comment: Canc elled via OM: Order cancelled - Patient discharged Performed By: #### L 500.2500, L100.0100 ####[facility] [address] [place], [address] RDW CV Normal 11.6-14.6 [facility] Comment on above: Result Comment: Canc elled via OM: Order cancelled - Patient discharged Performed By: #### L 500.2500, L100.0100 ####[facility] [address] [place], [address] RDW SD Normal 35.1-43.9 [facility] Comment on above: Result Comment: Canc elled via OM: Order cancelled - Patient discharged Performed By: #### L 500.2500, L100.0100 ####[facility] [address] [place], [address] WBC Normal 4.4-11.0 [facility] Comment on above: Result Comment: Canc elled via OM: Order cancelled - Patient discharged Performed By: #### L 500.2500, L100.0100 ####[facility] [address] [place], [address] Basic Metabolic Profile (BMP )on 10-22-2024 BUN Normal 7-18 [facility] Comment on above: Result Comment: Canc elled via OM: Order cancelled - Patient discharged Performed By: #### L 500.2500, L100.0100 ####[facility] [address] [place], [address] BUN/CRE Normal 10-20 [facility] Comment on above: Result Comment: Canc elled via OM: Order cancelled - Patient discharged Performed By: #### L 500.2500, L100.0100 ####[facility] [address] [place], [address] CA,Total Normal 8.5-10.1 [facility] Comment on above: Result Comment: Canc elled via OM: Order cancelled - Patient discharged Performed By: #### L 500.2500, L100.0100 ####[facility] [address] [place], [address] CL Normal 98-107 [facility] Comment on above: Result Comment: Canc elled via OM: Order cancelled - Patient discharged Performed By: #### L 500.2500, L100.0100 ####[facility] [address] [place], [address] CO2 Normal 21.0-32.0 [facility] Comment on above: Result Comment: Canc elled via OM: Order cancelled - Patient discharged Performed By: #### L 500.2500, L100.0100 ####[facility] [address] [place], [address] CREAT,SERUM Normal 0.55-1.02 [facility] Comment on above: Result Comment: Canc elled via OM: Order cancelled - Patient discharged Performed By: #### L 500.2500, L100.0100 ####[facility] [address] [place], [address] EST GFR Normal >60 [facility] Comment on above: Result Comment: Canc elled via OM: Order cancelled - Patient discharged Performed By: #### L 500.2500, L100.0100 ####[facility] [address] [place], [address] EST GFR - AA Normal >60 [facility] Comment on above: Result Comment: Canc elled via OM: Order cancelled - Patient discharged Performed By: #### L 500.2500, L100.0100 ####[facility] [address] [place], [address] GAP Normal 5-15 [facility] Comment on above: Result Comment: Canc elled via OM: Order cancelled - Patient discharged Performed By: #### L 500.2500, L100.0100 ####[facility] [address] [place], [address] GLU Normal 74-106 [facility] Comment on above: Result Comment: Canc elled via OM: Order cancelled - Patient discharged Performed By: #### L 500.2500, L100.0100 ####[facility] [address] [place], [address] Potassium Normal 3.5-5.1 [facility] Comment on above: Result Comment: Canc elled via OM: Order cancelled - Patient discharged Performed By: #### L 500.2500, L100.0100 ####[facility] [address] [place], [address] Basic Metabolic Profile (BMP) Normal 136-145 [facility] Comment on above: Result Comment: Canc elled via OM: Order cancelled - Patient discharged Performed By: #### L 500.2500, L100.0100 ####[facility] [address] [place], [address] CBC W/Diff, Automatedon 02-2 Absolute Neut Normal 2.0-7.7 [facility] Comment on above: Result Comment: Canc elled via OM: Order cancelled - Patient discharged Performed By: #### L 500.2500, L100.0100 ####[facility] [address] [place], [address] HCT Normal 37-47 [facility] Comment on above: Result Comment: Canc elled via OM: Order cancelled - Patient discharged Performed By: #### L 500.2500, L100.0100 ####[facility] [address] [place], [address] HGB Normal 12.0-15.0 [facility] Comment on above: Result Comment: Canc elled via OM: Order cancelled - Patient discharged Performed By: #### L 500.2500, L100.0100 ####[facility] [address] [place], [address] MCH Normal 27.0-32.0 [facility] Comment on above: Result Comment: Canc elled via OM: Order cancelled - Patient discharged Performed By: #### L 500.2500, L100.0100 ####[facility] [address] [place], [address] MCHC Normal 32-36 [facility] Comment on above: Result Comment: Canc elled via OM: Order cancelled - Patient discharged Performed By: #### L 500.2500, L100.0100 ####[facility] [address] [place], [address] MCV Normal 81-99 [facility] Comment on above: Result Comment: Canc elled via OM: Order cancelled - Patient discharged Performed By: #### L 500.2500, L100.0100 ####[facility] [address] [place], [address] NEUT% Normal 47-70 [facility] Comment on above: Result Comment: Canc elled via OM: Order cancelled - Patient discharged Performed By: #### L 500.2500, L100.0100 ####[facility] [address] [place], [address] PLT Normal 150-450 [facility] Comment on above: Result Comment: Canc elled via OM: Order cancelled - Patient discharged Performed By: #### L 500.2500, L100.0100 ####[facility] [address] [place], [address] RBC Normal 4.2-5.4 [facility] Comment on above: Result Comment: Canc elled via OM: Order cancelled - Patient discharged Performed By: #### L 500.2500, L100.0100 ####[facility] [address] [place], [address] RDW CV Normal 11.6-14.6 [facility] Comment on above: Result Comment: Canc elled via OM: Order cancelled - Patient discharged Performed By: #### L 500.2500, L100.0100 ####[facility] [address] [place], [address] RDW SD Normal 35.1-43.9 [facility] Comment on above: Result Comment: Canc elled via OM: Order cancelled - Patient discharged Performed By: #### L 500.2500, L100.0100 ####[facility] [address] [place], [address] WBC Normal 4.4-11.0 [facility] Comment on above: Result Comment: Canc elled via OM: Order cancelled - Patient discharged Performed By: #### L 500.2500, L100.0100 ####[facility] [address] [place], [address] Basic Metabolic Profile (BMP )on 10-21-2024 BUN/CRE 17.1 RATIO Normal 10-20 [facility] Comment on above: Performed By: #### L 500.2500, L100.0100 ####[facility] [address] [place], [address] CA,Total 9.4 mg/dL Normal 8.5-10.1 [facility] Comment on above: Performed By: #### L 500.2500, L100.0100 ####[facility] [address] [place], [address] Chloride [Moles/Vol] 97 mmol/L Low 98-107 [facility] Comment on above: Performed By: #### L 500.2500, L100.0100 ####[facility] [address] [place], [address] CO2 [Moles/Vol] 16.0 mmol/L Low 21.0-32.0 [facility] Comment on above: Performed By: #### L 500.2500, L100.0100 ####[facility] [address] [place], [address] Creatinine [Mass/Vol] 0.88 mg/dL Normal 0.55-1.02 [facility] Comment on above: Result Comment: The validity of the calculated GFR GFRAA in patients over70 years has not been determined. Clinical correlation isessential. Performed By: #### L 500.2500, L100.0100 ####[facility] [address] [place], [address] ECRCL 97.69 ml/min Normal [facility] Comment on above: Performed By: #### L 500.2500, L100.0100 ####[facility] [address] [place], [address] EST GFR - AA 97 mL/min Normal >60 [facility] Comment on above: Result Comment: Afri can Ecuadorean GFR Calc Performed By: #### L 500.2500, L100.0100 ####[facility] [address] [place], [address] GAP 15 Normal 5-15 [facility] Comment on above: Performed By: #### L 500.2500, L100.0100 ####[facility] [address] [place], [address] GFR/1.73 sq M.predicted among non-blacks MDRD (S/P/Bld) [Vol rate/Area] 80 mL/min/{1.73_m2} Normal >60 [facility] Comment on above: Result Comment: Non- GFR Calc Performed By: #### L 500.2500, L100.0100 ####[facility] [address] [place], [address] Glucose [Mass/Vol] 546 mg/dL Invalid Interpretation Code 74-106 [facility] Comment on above: Result Comment: Crit ical Result(s) Called at: 05:07:31 10/21/2024 by:[facility]. Results read back by same.Glucose result greater than or equal to 200 mg/dLsuggests DIABETES MELLITUS per A.D.A. criteria. Performed By: #### L 500.2500, L100.0100 ####[facility] [address] [place], [address] Potassium [Moles/Vol] 5.3 mmol/L High 3.5-5.1 [facility] Comment on above: Performed By: #### L 500.2500, L100.0100 ####[facility] [address] [place], [address] Sodium [Moles/Vol] 128 mmol/L Low 136-145 [facility] Comment on above: Performed By: #### L 500.2500, L100.0100 ####[facility] [address] [place], [address] Urea nitrogen [Mass/Vol] 15 mg/dL Normal 7-18 [facility] Comment on above: Performed By: #### L 500.2500, L100.0100 ####[facility] [address] [place], [address] Bedside Glucoseon 10-21-2024 FINGERSTICK GLU 296 mg/dL High [address] [place] [address] Comment on above: Result Comment: EDGAR GEMENT OF PATIENT CARE PER NURSING PROTOCOL Performed By: #### L 501.080 ####[facility] [address] [place], [address] FINGERSTICK GLU 187 mg/dL High [address] [place] [address] Comment on above: Result Comment: EDGAR GEMENT OF PATIENT CARE PER NURSING PROTOCOL Performed By: #### L 501.080 ####[facility] [address] [place], [address] FINGERSTICK GLU 408 mg/dL High [address] [place] [address] Comment on above: Result Comment: EDGAR GEMENT OF PATIENT CARE PER NURSING PROTOCOL Performed By: #### L 501.080 ####[facility] [address] [place], [address] FINGERSTICK GLU 481 mg/dL Invalid Interpretation Code -[address] [place] [address] Comment on above: Result Comment: Repe at TestMANAGEMENT OF PATIENT CARE PER NURSING PROTOCOL Performed By: #### L 501.080 ####[facility] [address] [place], [address] CBC W/Diff, Automatedon 09-29 Absolute Lymph 2.01 X10 3/uL Normal 0.83-4.51 [facility] Comment on above: Performed By: #### L 500.2500, L100.0100 ####[facility] [address] [place], [address] Absolute Neut 13.3 X10 3/uL High 2.0-7.7 [facility] Comment on above: Performed By: #### L 500.2500, L100.0100 ####[facility] [address] [place], [address] Basophils/100 WBC (Bld) 0.5 % Normal 0-1 [facility] Comment on above: Performed By: #### L 500.2500, L100.0100 ####[facility] [address] [place], [address] Eosinophils/100 WBC (Bld) 1.8 % Normal 0-5 [facility] Comment on above: Performed By: #### L 500.2500, L100.0100 ####[facility] [address] [place], [address] Erythrocyte distribution width (RBC) [Ratio] 12.9 % Normal 11.6-14.6 [facility] Comment on above: Performed By: #### L 500.2500, L100.0100 ####[facility] [address] [place], [address] Hematocrit (Bld) [Volume fraction] 44.3 % Normal 37-47 [facility] Comment on above: Performed By: #### L 500.2500, L100.0100 ####[facility] [address] [place], [address] Hemoglobin (Bld) [Mass/Vol] 14.3 g/dL Normal 12.0-15.0 [facility] Comment on above: Performed By: #### L 500.2500, L100.0100 ####[facility] [address] [place], [address] IG% 0.800 Normal 0.0-0.9 [facility] Comment on above: Result Comment: IG% - Immature Granulocytes (promyelocytes, myelocytes andmetamyelocytes) > 1% indicates that a LEFT SHIFT is Present. Performed By: #### L 500.2500, L100.0100 ####[facility] [address] [place], [address] Lymphocytes/100 WBC (Bld) 12.2 % Low 19-41 [facility] Comment on above: Performed By: #### L 500.2500, L100.0100 ####[facility] [address] [place], [address] MCH (RBC) [Entitic mass] 28.8 pg Normal 27.0-32.0 [facility] Comment on above: Performed By: #### L 500.2500, L100.0100 ####[facility] [address] [place], [address] MCHC (RBC) [Mass/Vol] 32.3 g/dL Normal 32-36 [facility] Comment on above: Performed By: #### L 500.2500, L100.0100 ####[facility] [address] [place], [address] MCV (RBC) [Entitic vol] 89.1 fL Normal 81-99 [facility] Comment on above: Performed By: #### L 500.2500, L100.0100 ####[facility] [address] [place], [address] Monocytes/100 WBC (Bld) 4.3 % Normal 0-10 [facility] Comment on above: Performed By: #### L 500.2500, L100.0100 ####[facility] [address] [place], [address] Neutrophils/100 WBC (Bld) 80.4 % High 47-70 [facility] Comment on above: Performed By: #### L 500.2500, L100.0100 ####[facility] [address] [place], [address] Nucleated RBC (Bld) [#/Vol] 0 10*3/uL Normal 0-5 [facility] Comment on above: Performed By: #### L 500.2500, L100.0100 ####[facility] [address] [place], [address] Platelet mean volume (Bld) [Entitic vol] 12.6 fL High 6.2-12.0 [facility] Comment on above: Performed By: #### L 500.2500, L100.0100 ####[facility] [address] [place], [address] Platelets (Bld) [#/Vol] 192 10*3/uL Normal 150-450 [facility] Comment on above: Performed By: #### L 500.2500, L100.0100 ####[facility] [address] [place], [address] RBC (Bld) [#/Vol] 4.97 10*6/uL Normal 4.2-5.4 [facility] Comment on above: Performed By: #### L 500.2500, L100.0100 ####[facility] [address] [place], [address] RDW SD 41.7 fl Normal 35.1-43.9 [facility] Comment on above: Performed By: #### L 500.2500, L100.0100 ####[facility] [address] [place], [address] WBC (Bld) [#/Vol] 16.5 10*3/uL High 4.4-11.0 [facility] Comment on above: Performed By: #### L 500.2500, L100.0100 ####[facility] [address] [place], [address] Discharge Instructionon -2 Discharge Instruction Normal [facility] Basic Metabolic Profile (BMP )on 10-20-2024 BUN/CRE 13.2 RATIO Normal 10-20 [facility] Comment on above: Performed By: #### L 500.2500, L100.0100 ####[facility] [address] [place], [address] CA,Total 8.8 mg/dL Normal 8.5-10.1 [facility] Comment on above: Performed By: #### L 500.2500, L100.0100 ####[facility] [address] [place], [address] Chloride [Moles/Vol] 104 mmol/L Normal 98-107 [facility] Comment on above: Performed By: #### L 500.2500, L100.0100 ####[facility] [address] [place], [address] CO2 [Moles/Vol] 22.0 mmol/L Normal 21.0-32.0 [facility] Comment on above: Performed By: #### L 500.2500, L100.0100 ####[facility] [address] [place], [address] Creatinine [Mass/Vol] 0.61 mg/dL Normal 0.55-1.02 [facility] Comment on above: Result Comment: The validity of the calculated GFR GFRAA in patients over70 years has not been determined. Clinical correlation isessential. Performed By: #### L 500.2500, L100.0100 ####[facility] [address] [place], [address] ECRCL 140.93 ml/min Normal [facility] Comment on above: Performed By: #### L 500.2500, L100.0100 ####[facility] [address] [place], [address] EST GFR - AA 149 mL/min Normal >60 [facility] Comment on above: Result Comment: Afri can Ecuadorean GFR Calc Performed By: #### L 500.2500, L100.0100 ####[facility] [address] [place], [address] GAP 8 Normal 5-15 [facility] Comment on above: Performed By: #### L 500.2500, L100.0100 ####[facility] [address] [place], [address] GFR/1.73 sq M.predicted among non-blacks MDRD (S/P/Bld) [Vol rate/Area] 123 mL/min/{1.73_m2} Normal >60 [facility] Comment on above: Result Comment: Non- GFR Calc Performed By: #### L 500.2500, L100.0100 ####[facility] [address] [place], [address] Glucose [Mass/Vol] 222 mg/dL High 74-106 [facility] Comment on above: Result Comment: Gluc ose result greater than or equal to 200 mg/dLsuggests DIABETES MELLITUS per A.D.A. criteria. Performed By: #### L 500.2500, L100.0100 ####[facility] [address] [place], [address] Potassium [Moles/Vol] 4.2 mmol/L Normal 3.5-5.1 [facility] Comment on above: Performed By: #### L 500.2500, L100.0100 ####[facility] [address] [place], [address] Sodium [Moles/Vol] 134 mmol/L Low 136-145 [facility] Comment on above: Performed By: #### L 500.2500, L100.0100 ####[facility] [address] [place], [address] Urea nitrogen [Mass/Vol] 8 mg/dL Normal 7-18 [facility] Comment on above: Performed By: #### L 500.2500, L100.0100 ####[facility] [address] [place], [address] Bedside Glucoseon 10-20-2024 FINGERSTICK GLU 94 mg/dL Normal 74-106 [facility] Comment on above: Result Comment: EDGAR HUNG OF PATIENT CARE PER NURSING PROTOCOL Performed By: #### L 501.080 ####[facility] [address] [place], [address] FINGERSTICK GLU 337 mg/dL High 74-106 [facility] Comment on above: Result Comment: EDGAR GEMENT OF PATIENT CARE PER NURSING PROTOCOL Performed By: #### L 501.080 ####[facility] [address] [place], [address] FINGERSTICK GLU 441 mg/dL High 74-106 [facility] Comment on above: Result Comment: EDGAR GEMENT OF PATIENT CARE PER NURSING PROTOCOL Performed By: #### L 501.080 ####[facility] [address] [place], [address] FINGERSTICK GLU 200 mg/dL High [address] [place] [address] Comment on above: Result Comment: EDGAR GEMENT OF PATIENT CARE PER NURSING PROTOCOL Performed By: #### L 501.080 ####[facility] [address] [place], [address] FINGERSTICK GLU 90 mg/dL Normal -106 [facility] Comment on above: Result Comment: EDGAR GEMENT OF PATIENT CARE PER NURSING PROTOCOL Performed By: #### L 501.080 ####[facility] [address] [place], [address] FINGERSTICK GLU 182 mg/dL High 74-106 [facility] Comment on above: Result Comment: EDGAR GEMENT OF PATIENT CARE PER NURSING PROTOCOL Performed By: #### L 501.080 ####[facility] [address] [place], [address] FINGERSTICK GLU 303 mg/dL High [facility] Comment on above: Result Comment: EDGAR GEMENT OF PATIENT CARE PER NURSING PROTOCOL Performed By: #### L 501.080 ####[facility] [address] [place], [address] CBC W/Diff, Automatedon 02 Absolute Lymph 2.82 X10 3/uL Normal 0.83-4.51 [facility] Comment on above: Performed By: #### L 500.2500, L100.0100 ####[facility] [address] [place], [address] Absolute Neut 6.3 X10 3/uL Normal 2.0-7.7 [facility] Comment on above: Performed By: #### L 500.2500, L100.0100 ####[facility] [address] [place], [address] Basophils/100 WBC (Bld) 0.4 % Normal 0-1 [facility] Comment on above: Performed By: #### L 500.2500, L100.0100 ####[facility] [address] [place], [address] Eosinophils/100 WBC (Bld) 3.1 % Normal 0-5 [facility] Comment on above: Performed By: #### L 500.2500, L100.0100 ####[facility] [address] [place], [address] Erythrocyte distribution width (RBC) [Ratio] 13.0 % Normal 11.6-14.6 [facility] Comment on above: Performed By: #### L 500.2500, L100.0100 ####[facility] [address] [place], [address] Hematocrit (Bld) [Volume fraction] 40.2 % Normal 37-47 [facility] Comment on above: Performed By: #### L 500.2500, L100.0100 ####[facility] [address] [place], [address] Hemoglobin (Bld) [Mass/Vol] 13.0 g/dL Normal 12.0-15.0 [facility] Comment on above: Performed By: #### L 500.2500, L100.0100 ####[facility] [address] [place], [address] IG% 0.700 Normal 0.0-0.9 [facility] Comment on above: Result Comment: IG% - Immature Granulocytes (promyelocytes, myelocytes andmetamyelocytes) > 1% indicates that a LEFT SHIFT is Present. Performed By: #### L 500.2500, L100.0100 ####[facility] [address] [place], [address] Lymphocytes/100 WBC (Bld) 27.9 % Normal 19-41 [facility] Comment on above: Performed By: #### L 500.2500, L100.0100 ####[facility] [address] [place], [address] MCH (RBC) [Entitic mass] 28.6 pg Normal 27.0-32.0 [facility] Comment on above: Performed By: #### L 500.2500, L100.0100 ####[facility] [address] [place], [address] MCHC (RBC) [Mass/Vol] 32.3 g/dL Normal 32-36 [facility] Comment on above: Performed By: #### L 500.2500, L100.0100 ####[facility] [address] [place], [address] MCV (RBC) [Entitic vol] 88.5 fL Normal 81-99 [facility] Comment on above: Performed By: #### L 500.2500, L100.0100 ####[facility] [address] [place], [address] Monocytes/100 WBC (Bld) 5.5 % Normal 0-10 [facility] Comment on above: Performed By: #### L 500.2500, L100.0100 ####[facility] [address] [place], [address] Neutrophils/100 WBC (Bld) 62.4 % Normal 47-70 [facility] Comment on above: Performed By: #### L 500.2500, L100.0100 ####[facility] [address] [place], [address] Nucleated RBC (Bld) [#/Vol] 0 10*3/uL Normal 0-5 [facility] Comment on above: Performed By: #### L 500.2500, L100.0100 ####[facility] [address] [place], [address] Platelet mean volume (Bld) [Entitic vol] 12.5 fL High 6.2-12.0 [facility] Comment on above: Performed By: #### L 500.2500, L100.0100 ####[facility] [address] [place], [address] Platelets (Bld) [#/Vol] 158 10*3/uL Normal 150-450 [facility] Comment on above: Performed By: #### L 500.2500, L100.0100 ####[facility] [address] [place], [address] RBC (Bld) [#/Vol] 4.54 10*6/uL Normal 4.2-5.4 [facility] Comment on above: Performed By: #### L 500.2500, L100.0100 ####[facility] [address] [place], [address] RDW SD 42.4 fl Normal 35.1-43.9 [facility] Comment on above: Performed By: #### L 500.2500, L100.0100 ####[facility] [address] [place], [address] WBC (Bld) [#/Vol] 10.1 10*3/uL Normal 4.4-11.0 [facility] Comment on above: Performed By: #### L 500.2500, L100.0100 ####[facility] [address] [place], [address] Urine Cultureon 10-20-2024 URC Mixed Gram Positive Organisms Trinidad Count 11,000-25,000 MIXC Mixed contaminants. Submit a new specimen if indicated. Normal [facility] Comment on above: Performed By: #### M 100.2200 ####[facility] [address] [place], [address] Bedside Glucoseon 10-19-2024 FINGERSTICK GLU 246 mg/dL High 74-106 [facility] Comment on above: Result Comment: EDGAR GEMENT OF PATIENT CARE PER NURSING PROTOCOL Performed By: #### L 501.080 ####[facility] [address] [place], [address] FINGERSTICK GLU 85 mg/dL Normal -[address] [place] [address] Comment on above: Result Comment: EDGAR GEMENT OF PATIENT CARE PER NURSING PROTOCOL Performed By: #### L 501.080 ####[facility] [address] [place], [address] FINGERSTICK GLU 35 mg/dL Invalid Interpretation Code [address] [place] [address] Comment on above: Result Comment: EDGAR GEMENT OF PATIENT CARE PER NURSING PROTOCOL Performed By: #### L 501.080 ####[facility] [address] [place], [address] FINGERSTICK GLU 64 mg/dL Low -[address] [place] [address] Comment on above: Result Comment: EDGAR GEMENT OF PATIENT CARE PER NURSING PROTOCOL Performed By: #### L 501.080 ####[facility] [address] [place], [address] FINGERSTICK GLU 156 mg/dL High [address] [place] [address] Comment on above: Result Comment: EDGAR GEMENT OF PATIENT CARE PER NURSING PROTOCOL Performed By: #### L 501.080 ####[facility] [address] [place], [address] FINGERSTICK GLU 53 mg/dL Low 74-106 [facility] Comment on above: Result Comment: EDGAR GEMENT OF PATIENT CARE PER NURSING PROTOCOL Performed By: #### L 501.080 ####[facility] [address] [place], [address] FINGERSTICK GLU 40 mg/dL Invalid Interpretation Code 74-106 [facility] Comment on above: Result Comment: [facility] k GivenMANAGEMENT OF PATIENT CARE PER NURSING PROTOCOL Performed By: #### L 501.080 ####[facility] [address] [place], [address] FINGERSTICK GLU 235 mg/dL High 74-106 [facility] Comment on above: Result Comment: EDGAR GEMENT OF PATIENT CARE PER NURSING PROTOCOL Performed By: #### L 501.080 ####[facility] [address] [place], [address] FINGERSTICK GLU 52 mg/dL Low 74-106 [facility] Comment on above: Result Comment: EDGAR GEMENT OF PATIENT CARE PER NURSING PROTOCOL Performed By: #### L 501.080 ####[facility] [address] [place], [address] FINGERSTICK GLU 132 mg/dL High 74-106 [facility] Comment on above: Result Comment: DEGAR GEMENT OF PATIENT CARE PER NURSING PROTOCOL Performed By: #### L 501.080 ####[facility] [address] [place], [address] CBC W/Diff, Automatedon - Absolute Lymph 3.09 X10 3/uL Normal 0.83-4.51 [facility] Comment on above: Performed By: #### L 500.4050, L100.0100 ####[facility] [address] [place], [address] Absolute Neut 6.9 X10 3/uL Normal 2.0-7.7 [facility] Comment on above: Performed By: #### L 500.4050, L100.0100 ####[facility] [address] [place], [address] Basophils/100 WBC (Bld) 0.5 % Normal 0-1 [facility] Comment on above: Performed By: #### L 500.4050, L100.0100 ####[facility] [address] [place], [address] Eosinophils/100 WBC (Bld) 1.8 % Normal 0-5 [facility] Comment on above: Performed By: #### L 500.4050, L100.0100 ####[facility] [address] [place], [address] Erythrocyte distribution width (RBC) [Ratio] 13.2 % Normal 11.6-14.6 [facility] Comment on above: Performed By: #### L 500.4050, L100.0100 ####[facility] [address] [place], [address] Hematocrit (Bld) [Volume fraction] 37.6 % Normal 37-47 [facility] Comment on above: Performed By: #### L 500.4050, L100.0100 ####[facility] [address] [place], [address] Hemoglobin (Bld) [Mass/Vol] 12.5 g/dL Normal 12.0-15.0 [facility] Comment on above: Performed By: #### L 500.4050, L100.0100 ####[facility] [address] [place], [address] IG% 0.800 Normal 0.0-0.9 [facility] Comment on above: Result Comment: IG% - Immature Granulocytes (promyelocytes, myelocytes andmetamyelocytes) > 1% indicates that a LEFT SHIFT is Present. Performed By: #### L 500.4050, L100.0100 ####[facility] [address] [place], [address] Lymphocytes/100 WBC (Bld) 27.9 % Normal 19-41 [facility] Comment on above: Performed By: #### L 500.4050, L100.0100 ####[facility] [address] [place], [address] MCH (RBC) [Entitic mass] 29.3 pg Normal 27.0-32.0 [facility] Comment on above: Performed By: #### L 500.4050, L100.0100 ####[facility] [address] [place], [address] MCHC (RBC) [Mass/Vol] 33.2 g/dL Normal 32-36 [facility] Comment on above: Performed By: #### L 500.4050, L100.0100 ####[facility] [address] [place], [address] MCV (RBC) [Entitic vol] 88.1 fL Normal 81-99 [facility] Comment on above: Performed By: #### L 500.4050, L100.0100 ####[facility] [address] [place], [address] Monocytes/100 WBC (Bld) 6.8 % Normal 0-10 [facility] Comment on above: Performed By: #### L 500.4050, L100.0100 ####[facility] [address] [place], [address] Neutrophils/100 WBC (Bld) 62.2 % Normal 47-70 [facility] Comment on above: Performed By: #### L 500.4050, L100.0100 ####[facility] [address] [place], [address] Nucleated RBC (Bld) [#/Vol] 0 10*3/uL Normal 0-5 [facility] Comment on above: Performed By: #### L 500.4050, L100.0100 ####[facility] [address] [place], [address] Platelet mean volume (Bld) [Entitic vol] 12.0 fL Normal 6.2-12.0 [facility] Comment on above: Performed By: #### L 500.4050, L100.0100 ####[facility] [address] [place], [address] Platelets (Bld) [#/Vol] 149 10*3/uL Low 150-450 [facility] Comment on above: Performed By: #### L 500.4050, L100.0100 ####[facility] [address] [place], [address] RBC (Bld) [#/Vol] 4.27 10*6/uL Normal 4.2-5.4 [facility] Comment on above: Performed By: #### L 500.4050, L100.0100 ####[facility] [address] [place], [address] RDW SD 42.4 fl Normal 35.1-43.9 [facility] Comment on above: Performed By: #### L 500.4050, L100.0100 ####[facility] [address] [place], [address] WBC (Bld) [#/Vol] 11.1 10*3/uL High 4.4-11.0 [facility] Comment on above: Performed By: #### L 500.4050, L100.0100 ####[facility] [address] [place], [address] Comprehensive Metabolic Prof ilon 10-19-2024 Albumin [Mass/Vol] 3.0 g/dL Low 3.2-5.0 [facility] Comment on above: Performed By: #### L 500.4050, L100.0100 ####[facility] [address] [place], [address] Albumin/Globulin [Mass ratio] 0.9 {ratio} Normal 0.9-2.4 [facility] Comment on above: Performed By: #### L 500.4050, L100.0100 ####[facility] [address] [place], [address] ALK P 67 U/L Normal 45-117 [facility] Comment on above: Performed By: #### L 500.4050, L100.0100 ####[facility] [address] [place], [address] ALT [Catalytic activity/Vol] 21 U/L Normal 13-56 [facility] Comment on above: Performed By: #### L 500.4050, L100.0100 ####[facility] [address] [place], [address] AST [Catalytic activity/Vol] 13 U/L Low 15-37 [facility] Comment on above: Performed By: #### L 500.4050, L100.0100 ####[facility] [address] [place], [address] Bilirubin [Mass/Vol] 0.40 mg/dL Normal 0.20-1.00 [facility] Comment on above: Result Comment: For patients on eltrombopag therapy, use of Dimension Heath TBIL is not recommended. Performed By: #### L 500.4050, L100.0100 ####[facility] [address] [place], [address] BUN/CRE 14.4 RATIO Normal 10-20 [facility] Comment on above: Performed By: #### L 500.4050, L100.0100 ####[facility] [address] [place], [address] CA,Total 8.2 mg/dL Low 8.5-10.1 [facility] Comment on above: Performed By: #### L 500.4050, L100.0100 ####[facility] [address] [place], [address] Chloride [Moles/Vol] 112 mmol/L High 98-107 [facility] Comment on above: Performed By: #### L 500.4050, L100.0100 ####[facility] [address] [place], [address] CO2 [Moles/Vol] 21.0 mmol/L Normal 21.0-32.0 [facility] Comment on above: Performed By: #### L 500.4050, L100.0100 ####[facility] [address] [place], [address] Creatinine [Mass/Vol] 0.55 mg/dL Normal 0.55-1.02 [facility] Comment on above: Result Comment: The validity of the calculated GFR GFRAA in patients over70 years has not been determined. Clinical correlation isessential. Performed By: #### L 500.4050, L100.0100 ####[facility] [address] [place], [address] ECRCL 156.31 ml/min Normal [facility] Comment on above: Performed By: #### L 500.4050, L100.0100 ####[facility] [address] [place], [address] EST GFR - AA 165 mL/min Normal >60 [facility] Comment on above: Result Comment: Afri can Ecuadorean GFR Calc Performed By: #### L 500.4050, L100.0100 ####[facility] [address] [place], [address] GAP 8 Normal 5-15 [facility] Comment on above: Performed By: #### L 500.4050, L100.0100 ####[facility] [address] [place], [address] GFR/1.73 sq M.predicted among non-blacks MDRD (S/P/Bld) [Vol rate/Area] 137 mL/min/{1.73_m2} Normal >60 [facility] Comment on above: Result Comment: Non- GFR Calc Performed By: #### L 500.4050, L100.0100 ####[facility] [address] [place], [address] Globulin (S) [Mass/Vol] 3.2 g/dL Normal 2.2-4.2 [facility] Comment on above: Performed By: #### L 500.4050, L100.0100 ####[facility] [address] [place], [address] Glucose [Mass/Vol] 49 mg/dL Low 74-106 [facility] Comment on above: Result Comment: Gluc ose result less than 50 mg/dL suggests HYPOGLYCEMIA. Performed By: #### L 500.4050, L100.0100 ####[facility] [address] [place], [address] Potassium [Moles/Vol] 3.7 mmol/L Normal 3.5-5.1 [facility] Comment on above: Performed By: #### L 500.4050, L100.0100 ####[facility] [address] [place], [address] Sodium [Moles/Vol] 140 mmol/L Normal 136-145 [facility] Comment on above: Performed By: #### L 500.4050, L100.0100 ####[facility] [address] [place], [address] T PROT 6.2 g/dL Low 6.4-8.2 [facility] Comment on above: Performed By: #### L 500.4050, L100.0100 ####[facility] [address] [place], [address] Urea nitrogen [Mass/Vol] 8 mg/dL Normal 7-18 [facility] Comment on above: Performed By: #### L 500.4050, L100.0100 ####[facility] [address] [place], [address] Glucoseon 10-19-2024 Glucose [Mass/Vol] 231 mg/dL High 74-106 [facility] Comment on above: Result Comment: Gluc ose result greater than or equal to 200 mg/dLsuggests DIABETES MELLITUS per A.D.A. criteria. Performed By: #### L 501.0100 ####[facility] [address] [place], [address] Glucose [Mass/Vol] 88 mg/dL Normal 74-106 [facility] Comment on above: Performed By: #### L 501.0100 ####[facility] [address] [place], [address] 12 Lead EKGon 10-18-2024 12 Lead EKG Normal [facility] Abdomen/Pelvis W IV Cont ONL Yon 10-18-2024 Abdomen/Pelvis W IV Cont ONLY Normal [facility] Acetone Serumon 10-18-2024 ACETONE SERUM Negative Normal NEG [facility] Comment on above: Performed By: #### L 501.6900 ####[facility] [address] [place], [address] Bedside Glucoseon 10-18-2024 FINGERSTICK GLU 85 mg/dL Normal 74-106 [facility] Comment on above: Result Comment: EDGAR HUNG OF PATIENT CARE PER NURSING PROTOCOL Performed By: #### L 501.080 ####[facility] [address] [place], [address] FINGERSTICK GLU 100 mg/dL Normal 74-106 [facility] Comment on above: Result Comment: EDGAR GEMENT OF PATIENT CARE PER NURSING PROTOCOL Performed By: #### L 501.080 ####[facility] [address] [place], [address] FINGERSTICK GLU 62 mg/dL Low 74-106 [facility] Comment on above: Result Comment: EDGAR GEMENT OF PATIENT CARE PER NURSING PROTOCOL Performed By: #### L 501.080 ####[facility] [address] [place], [address] CBC W/Diff, Automatedon 02- Absolute Lymph 1.82 X10 3/uL Normal 0.83-4.51 [facility] Comment on above: Performed By: #### L 500.4050, L100.0100, L700.6800, L501.2450 ####[facility] [address] [place], [address] Absolute Neut 14.0 X10 3/uL High 2.0-7.7 [facility] Comment on above: Performed By: #### L 500.4050, L100.0100, L700.6800, L501.2450 ####[facility] [address] [place], [address] Basophils/100 WBC (Bld) 0.2 % Normal 0-1 [facility] Comment on above: Performed By: #### L 500.4050, L100.0100, L700.6800, L501.2450 ####[facility] [address] [place], [address] Eosinophils/100 WBC (Bld) 0.2 % Normal 0-5 [facility] Comment on above: Performed By: #### L 500.4050, L100.0100, L700.6800, L501.2450 ####[facility] [address] [place], [address] Erythrocyte distribution width (RBC) [Ratio] 13.1 % Normal 11.6-14.6 [facility] Comment on above: Performed By: #### L 500.4050, L100.0100, L700.6800, L501.2450 ####[facility] [address] [place], [address] Hematocrit (Bld) [Volume fraction] 38.8 % Normal 37-47 [facility] Comment on above: Performed By: #### L 500.4050, L100.0100, L700.6800, L501.2450 ####[facility] [address] [place], [address] Hemoglobin (Bld) [Mass/Vol] 12.9 g/dL Normal 12.0-15.0 [facility] Comment on above: Performed By: #### L 500.4050, L100.0100, L700.6800, L501.2450 ####[facility] [address] [place], [address] IG% 0.600 Normal 0.0-0.9 [facility] Comment on above: Result Comment: IG% - Immature Granulocytes (promyelocytes, myelocytes andmetamyelocytes) > 1% indicates that a LEFT SHIFT is Present. Performed By: #### L 500.4050, L100.0100, L700.6800, L501.2450 ####[facility] [address] [place], [address] Lymphocytes/100 WBC (Bld) 10.7 % Low 19-41 [facility] Comment on above: Performed By: #### L 500.4050, L100.0100, L700.6800, L501.2450 ####[facility] [address] [place], [address] MCH (RBC) [Entitic mass] 29.3 pg Normal 27.0-32.0 [facility] Comment on above: Performed By: #### L 500.4050, L100.0100, L700.6800, L501.2450 ####[facility] [address] [place], [address] MCHC (RBC) [Mass/Vol] 33.2 g/dL Normal 32-36 [facility] Comment on above: Performed By: #### L 500.4050, L100.0100, L700.6800, L501.2450 ####[facility] [address] [place], [address] MCV (RBC) [Entitic vol] 88.2 fL Normal 81-99 [facility] Comment on above: Performed By: #### L 500.4050, L100.0100, L700.6800, L501.2450 ####[facility] [address] [place], [address] Monocytes/100 WBC (Bld) 6.1 % Normal 0-10 [facility] Comment on above: Performed By: #### L 500.4050, L100.0100, L700.6800, L501.2450 ####[facility] [address] [place], [address] Neutrophils/100 WBC (Bld) 82.2 % High 47-70 [facility] Comment on above: Performed By: #### L 500.4050, L100.0100, L700.6800, L501.2450 ####[facility] [address] [place], [address] Nucleated RBC (Bld) [#/Vol] 0 10*3/uL Normal 0-5 [facility] Comment on above: Performed By: #### L 500.4050, L100.0100, L700.6800, L501.2450 ####[facility] [address] [place], [address] Platelet mean volume (Bld) [Entitic vol] 12.3 fL High 6.2-12.0 [facility] Comment on above: Performed By: #### L 500.4050, L100.0100, L700.6800, L501.2450 ####[facility] [address] [place], [address] Platelets (Bld) [#/Vol] 166 10*3/uL Normal 150-450 [facility] Comment on above: Performed By: #### L 500.4050, L100.0100, L700.6800, L501.2450 ####[facility] [address] [place], [address] RBC (Bld) [#/Vol] 4.40 10*6/uL Normal 4.2-5.4 [facility] Comment on above: Performed By: #### L 500.4050, L100.0100, L700.6800, L501.2450 ####[facility] [address] [place], [address] RDW SD 42.5 fl Normal 35.1-43.9 [facility] Comment on above: Performed By: #### L 500.4050, L100.0100, L700.6800, L501.2450 ####[facility] [address] [place], [address] WBC (Bld) [#/Vol] 17.1 10*3/uL High 4.4-11.0 [facility] Comment on above: Performed By: #### L 500.4050, L100.0100, L700.6800, L501.2450 ####[facility] [address] [place], [address] Comprehensive Metabolic Prof [facility] 10-18-2024 Albumin [Mass/Vol] 3.7 g/dL Normal 3.2-5.0 [facility] Comment on above: Performed By: #### L 500.4050, L100.0100, L700.6800, L501.2450 ####[facility] [address] [place], [address] Albumin/Globulin [Mass ratio] 1.1 {ratio} Normal 0.9-2.4 [facility] Comment on above: Performed By: #### L 500.4050, L100.0100, L700.6800, L501.2450 ####[facility] [address] [place], [address] ALK P 84 U/L Normal 45-117 [facility] Comment on above: Performed By: #### L 500.4050, L100.0100, L700.6800, L501.2450 ####[facility] [address] [place], [address] ALT [Catalytic activity/Vol] 24 U/L Normal 13-56 [facility] Comment on above: Performed By: #### L 500.4050, L100.0100, L700.6800, L501.2450 ####[facility] [address] [place], [address] AST [Catalytic activity/Vol] 14 U/L Low 15-37 [facility] Comment on above: Performed By: #### L 500.4050, L100.0100, L700.6800, L501.2450 ####[facility] [address] [place], [address] Bilirubin [Mass/Vol] 0.40 mg/dL Normal 0.20-1.00 [facility] Comment on above: Result Comment: For patients on eltrombopag therapy, use of Dimension Heath TBIL is not recommended. Performed By: #### L 500.4050, L100.0100, L700.6800, L501.2450 ####[facility] [address] [place], [address] BUN/CRE 19.7 RATIO Normal 10-20 [facility] Comment on above: Performed By: #### L 500.4050, L100.0100, L700.6800, L501.2450 ####[facility] [address] [place], [address] CA,Total 9.4 mg/dL Normal 8.5-10.1 [facility] Comment on above: Performed By: #### L 500.4050, L100.0100, L700.6800, L501.2450 ####[facility] [address] [place], [address] Chloride [Moles/Vol] 109 mmol/L High 98-107 [facility] Comment on above: Performed By: #### L 500.4050, L100.0100, L700.6800, L501.2450 ####[facility] [address] [place], [address] CO2 [Moles/Vol] 25.0 mmol/L Normal 21.0-32.0 [facility] Comment on above: Performed By: #### L 500.4050, L100.0100, L700.6800, L501.2450 ####[facility] [address] [place], [address] Creatinine [Mass/Vol] 0.76 mg/dL Normal 0.55-1.02 [facility] Comment on above: Result Comment: The validity of the calculated GFR GFRAA in patients over70 years has not been determined. Clinical correlation isessential. Performed By: #### L 500.4050, L100.0100, L700.6800, L501.2450 ####[facility] [address] [place], [address] ECRCL 123.05 ml/min Normal [facility] Comment on above: Performed By: #### L 500.4050, L100.0100, L700.6800, L501.2450 ####[facility] [address] [place], [address] EST GFR - AA 115 mL/min Normal >60 [facility] Comment on above: Result Comment: Afri can Ecuadorean GFR Calc Performed By: #### L 500.4050, L100.0100, L700.6800, L501.2450 ####[facility] [address] [place], [address] GAP 5 Normal 5-15 [facility] Comment on above: Performed By: #### L 500.4050, L100.0100, L700.6800, L501.2450 ####[facility] [address] [place], [address] GFR/1.73 sq M.predicted among non-blacks MDRD (S/P/Bld) [Vol rate/Area] 95 mL/min/{1.73_m2} Normal >60 [facility] Comment on above: Result Comment: Non- GFR Calc Performed By: #### L 500.4050, L100.0100, L700.6800, L501.2450 ####[facility] [address] [place], [address] Globulin (S) [Mass/Vol] 3.4 g/dL Normal 2.2-4.2 [facility] Comment on above: Performed By: #### L 500.4050, L100.0100, L700.6800, L501.2450 ####[facility] [address] [place], [address] Glucose [Mass/Vol] 116 mg/dL High 74-106 [facility] Comment on above: Result Comment: Fast ing Glucose result from 100 to 125 mg/dLsuggests IMPAIRED HOMEOSTASIS per A.D.A. criteria. Performed By: #### L 500.4050, L100.0100, L700.6800, L501.2450 ####[facility] [address] [place], [address] Potassium [Moles/Vol] 4.0 mmol/L Normal 3.5-5.1 [facility] Comment on above: Performed By: #### L 500.4050, L100.0100, L700.6800, L501.2450 ####[facility] [address] [place], [address] Sodium [Moles/Vol] 139 mmol/L Normal 136-145 [facility] Comment on above: Performed By: #### L 500.4050, L100.0100, L700.6800, L501.2450 ####[facility] [address] [place], [address] T PROT 7.1 g/dL Normal 6.4-8.2 [facility] Comment on above: Performed By: #### L 500.4050, L100.0100, L700.6800, L501.2450 ####[facility] [address] [place], [address] Urea nitrogen [Mass/Vol] 15 mg/dL Normal 7-18 [facility] Comment on above: Performed By: #### L 500.4050, L100.0100, L700.6800, L501.2450 ####[facility] [address] [place], [address] Emergency Department Summary on 10-18-2024 Emergency Department Summary Normal [facility] H AND P Exam - Hospitaliston 10-18-2024 H&P Exam - Hospitalist Normal [facility] Lactic Acidon 10-18-2024 Lactate [Moles/Vol] 1.4 mmol/L Normal 0.4-1.9 [facility] Comment on above: Order Comment: Y Performed By: #### L 503.6005, L700.6800 ####[facility] [address] [place], [address] Lipaseon 10-18-2024 Lipase [Catalytic activity/Vol] 18 U/L Low 73-393 [facility] Comment on above: Performed By: #### L 500.4050, L100.0100, L700.6800, L501.2450 ####[facility] [address] [place], [address] M100.678on 10-18-2024 M100.678 SARS-CoV-2 (COVID 19 ) Negative INFLUENZA A Negative INFLUENZA B Negative RSV PCR Negative Normal [facility] Comment on above: Performed By: #### M 100.678 ####[facility] [address] [place], [address] Magnesiumon 10-18-2024 Magnesium [Mass/Vol] 1.8 mg/dL Normal 1.6-2.6 [facility] Comment on above: Order Comment: Comme nts: May add to ED labsComments: may add to ED labs Performed By: #### L 501.5200, L501.2300, L509.7000 ####[facility] [address] [place], [address] Phosphoruson 10-18-2024 Phosphate [Mass/Vol] 3.3 mg/dL Normal 2.5-4.9 [facility] Comment on above: Order Comment: Comme nts: May add to ED labsComments: may add to ED labs Performed By: #### L 501.5200, L501.2300, L509.7000 ####[facility] [address] [place], [address] ,Serum,hCG Quali.on 10-18-2024 HCG, SERUM QUAL Negative Normal [facility] [facility] Comment on above: Performed By: #### L 500.4050, L100.0100, L700.6800, L501.2450 ####[facility] [address] [place], [address] HCG, SERUM QUAL Normal [facility] Comment on above: Result Comment: Canc elled via OM: MD Ordered Performed By: #### L 503.6005, L700.6800 ####[facility] [address] [place], [address] INTERNAL QC OK? Normal [facility] Comment on above: Result Comment: Canc elled via OM: MD Ordered Performed By: #### L 503.6005, L700.6800 ####[facility] [address] [place], [address] RECORD KIT LOT# [facility] Comment on above: Result Comment: Canc elled via OM: MD Ordered Performed By: #### L 503.6005, L700.6800 ####[facility] [address] [place], [address] Procalcitoninon 10-18-2024 Procalcitonin 0.07 ng/mL Normal 0.00-0.09 [facility] Comment on above: Result Comment: A pr [...] Performed By: #### L 501.5200, L501.2300, L509.7000 ####[facility] [address] [place], [address] Urinalysis, Completeon 10-18 BACTERIA 1+ /hpf Normal None Seen [facility] Comment on above: Order Comment: CLEAN CATCH Performed By: #### L 400.0001 ####[facility] [address] [place], [address] EPI,SQUAMOUS 0-5 SEEN Normal 5-10 [facility] Comment on above: Order Comment: CLEAN CATCH Performed By: #### L 400.0001 ####[facility] [address] [place], [address] Mucus Ql (Urine sed) 1+ /hpf Normal [facility] Comment on above: Order Comment: CLEAN CATCH Performed By: #### L 400.0001 ####[facility] [address] [place], [address] RBC 5-10 SEEN Normal 0-5 [facility] Comment on above: Order Comment: CLEAN CATCH Performed By: #### L 400.0001 ####[facility] [address] [place], [address] WBC 10-25 SEEN Normal 0-5 [facility] Comment on above: Order Comment: CLEAN CATCH Performed By: #### L 400.0001 ####[facility] [address] [place], [address] Venous Blood Gason 5 Blood Gas Type ISABELLE Normal [facility] Comment on above: Performed By: #### L 9000.0810 ####[facility] [address] [place], [address] CO2 [Moles/Vol] 26 mmol/L Normal 23-33 [facility] Comment on above: Performed By: #### L 9000.0810 ####[facility] [address] [place], [address] HCO3 (Bld) [Moles/Vol] 25 mmol/L Normal 22-26 [facility] Comment on above: Performed By: #### L 9000.0810 ####[facility] [address] [place], [address] O2 Delivery Dev Room Air Normal [facility] Comment on above: Performed By: #### L 9000.0810 ####[facility] [address] [place], [address] SITE Not entered Normal [facility] Comment on above: Performed By: #### L 9000.0810 ####[facility] [address] [place], [address] VBG BE 0 mmol/L Normal -1.0-3.5 [facility] Comment on above: Performed By: #### L 9000.0810 ####[facility] [address] [place], [address] VBG pCO2 41.6 mmHg Normal 41-51 [facility] Comment on above: Performed By: #### L 9000.0810 ####[facility] [address] [place], [address] VBG pH 7.38 Normal 7.32-7.42 [facility] Comment on above: Performed By: #### L 9000.0810 ####[facility] [address] [place], [address] VBG PO2 32 mmHg Normal 25-40 [facility] Comment on above: Performed By: #### L 9000.0810 ####[facility] [address] [place], [address] VBG SO2 59 Normal 50-70 [facility] Comment on above: Performed By: #### L 9000.0810 ####[facility] [address] [place], [address] Dipak 10-02-2024 GIOVANA Telephone (ENDOIN) DAISYKATHLEEN Swain ([id number]) 1995 F CHT Date Time Provider Department 10/02/24 JESSICA GUERRERO During your visit today, we recorded the following information about you: Nichole Quinteros 10/02/2024 9:53 AM Signed Patient has been identified by name and date of : Yes Type of form: [facility] Medical Physician Order for Insulin Pump Therapy and Diabetes Testing Form received via: abstract When form is completed, fax form to fax number provided. Form has been forwarded to: Provider's mailbox. Provider name: FRIEDA Urena Diamond, STIVEN 10/02/2024 2:45 PM Signed Clinical notes and DWO for infusion supplies placed on providers desk to review and advise. To be faxed to [facility] Medical [phone] Jessica Guerrero APRN.CNP 10/02/2024 3:09 PM Signed Form signed. Jessica Guerrero APRN.Estrellita Viera, STIVEN 10/10/2024 11:49 AM Signed Form re-faxed per [facility] request Allergies As of Date: 10/02/2024 Noted [...] Units subcutaneously every 24 hours. 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, [address] CA,Total 9.2 mg/dL Normal 8.5-10.1 [facility] Comment on above: Performed By: #### L 500.2500, L100.0100 ####[facility] [address] [place], [address] Chloride [Moles/Vol] 112 mmol/L High 98-107 [facility] Comment on above: Performed By: #### L 500.2500, L100.0100 ####[facility] [address] [place], [address] CO2 [Moles/Vol] 21.0 mmol/L Normal 21.0-32.0 [facility] Comment on above: Performed By: #### L 500.2500, L100.0100 ####[facility] [address] [place], [address] Creatinine [Mass/Vol] 0.86 mg/dL Normal 0.55-1.02 [facility] Comment on above: Result Comment: The validity of the calculated GFR GFRAA in patients over70 years has not been determined. Clinical correlation isessential. Performed By: #### L 500.2500, L100.0100 ####[facility] [address] [place], [address] ECRCL 99.96 ml/min Normal [facility] Comment on above: Performed By: #### L 500.2500, L100.0100 ####[facility] [address] [place], [address] EST GFR - AA 99 mL/min Normal >60 [facility] Comment on above: Result Comment: Afri can Ecuadorean GFR Calc Performed By: #### L 500.2500, L100.0100 ####[facility] [address] [place], [address] GAP 10 Normal 5-15 [facility] Comment on above: Performed By: #### L 500.2500, L100.0100 ####[facility] [address] [place], [address] GFR/1.73 sq M.predicted among non-blacks MDRD (S/P/Bld) [Vol rate/Area] 82 mL/min/{1.73_m2} Normal >60 [facility] Comment on above: Result Comment: Non- GFR Calc Performed By: #### L 500.2500, L100.0100 ####[facility] [address] [place], [address] Glucose [Mass/Vol] 129 mg/dL High 74-106 [facility] Comment on above: Result Comment: Fast ing Glucose result greater than or equal to 126 mg/dLsuggests DIABETES MELLITUS per A.D.A. criteria. Performed By: #### L 500.2500, L100.0100 ####[facility] [address] [place], [address] Potassium [Moles/Vol] 3.0 mmol/L Low 3.5-5.1 [facility] Comment on above: Performed By: #### L 500.2500, L100.0100 ####[facility] [address] [place], [address] Sodium [Moles/Vol] 142 mmol/L Normal 136-145 [facility] Comment on above: Performed By: #### L 500.2500, L100.0100 ####[facility] [address] [place], [address] Urea nitrogen [Mass/Vol] 14 mg/dL Normal 7-18 [facility] Comment on above: Performed By: #### L 500.2500, L100.0100 ####[facility] [address] [place], [address] CBC W/Diff, Automatedon 01-0 6-2025 Absolute Lymph 2.60 X10 3/uL Normal 0.83-4.51 [facility] Comment on above: Performed By: #### L 500.2500, L100.0100 ####[facility] [address] [place], [address] Absolute Neut 12.8 X10 3/uL High 2.0-7.7 [facility] Comment on above: Performed By: #### L 500.2500, L100.0100 ####[facility] [address] [place], [address] Basophils/100 WBC (Bld) 0.5 % Normal 0-1 [facility] Comment on above: Performed By: #### L 500.2500, L100.0100 ####[facility] [address] [place], [address] Eosinophils/100 WBC (Bld) 0.4 % Normal 0-5 [facility] Comment on above: Performed By: #### L 500.2500, L100.0100 ####[facility] [address] [place], [address] Erythrocyte distribution width (RBC) [Ratio] 12.6 % Normal 11.6-14.6 [facility] Comment on above: Performed By: #### L 500.2500, L100.0100 ####[facility] [address] [place], [address] Hematocrit (Bld) [Volume fraction] 42.7 % Normal 37-47 [facility] Comment on above: Performed By: #### L 500.2500, L100.0100 ####[facility] [address] [place], [address] Hemoglobin (Bld) [Mass/Vol] 14.1 g/dL Normal 12.0-15.0 [facility] Comment on above: Performed By: #### L 500.2500, L100.0100 ####[facility] [address] [place], [address] IG% 1.000 High 0.0-0.9 [facility] Comment on above: Result Comment: IG% - Immature Granulocytes (promyelocytes, myelocytes andmetamyelocytes) > 1% indicates that a LEFT SHIFT is Present. Performed By: #### L 500.2500, L100.0100 ####[facility] [address] [place], [address] Lymphocytes/100 WBC (Bld) 15.8 % Low 19-41 [facility] Comment on above: Performed By: #### L 500.2500, L100.0100 ####[facility] [address] [place], [address] MCH (RBC) [Entitic mass] 28.9 pg Normal 27.0-32.0 [facility] Comment on above: Performed By: #### L 500.2500, L100.0100 ####[facility] [address] [place], [address] MCHC (RBC) [Mass/Vol] 33.0 g/dL Normal 32-36 [facility] Comment on above: Performed By: #### L 500.2500, L100.0100 ####[facility] [address] [place], [address] MCV (RBC) [Entitic vol] 87.5 fL Normal 81-99 [facility] Comment on above: Performed By: #### L 500.2500, L100.0100 ####[facility] [address] [place], [address] Monocytes/100 WBC (Bld) 4.6 % Normal 0-10 [facility] Comment on above: Performed By: #### L 500.2500, L100.0100 ####[facility] [address] [place], [address] Neutrophils/100 WBC (Bld) 77.7 % High 47-70 [facility] Comment on above: Performed By: #### L 500.2500, L100.0100 ####[facility] [address] [place], [address] Nucleated RBC (Bld) [#/Vol] 0 10*3/uL Normal 0-5 [facility] Comment on above: Performed By: #### L 500.2500, L100.0100 ####[facility] [address] [place], [address] Platelet mean volume (Bld) [Entitic vol] 12.5 fL High 6.2-12.0 [facility] Comment on above: Performed By: #### L 500.2500, L100.0100 ####[facility] [address] [place], [address] Platelets (Bld) [#/Vol] 199 10*3/uL Normal 150-450 [facility] Comment on above: Performed By: #### L 500.2500, L100.0100 ####[facility] [address] [place], [address] RBC (Bld) [#/Vol] 4.88 10*6/uL Normal 4.2-5.4 [facility] Comment on above: Performed By: #### L 500.2500, L100.0100 ####[facility] [address] [place], [address] RDW SD 40.3 fl Normal 35.1-43.9 [facility] Comment on above: Performed By: #### L 500.2500, L100.0100 ####[facility] [address] [place], [address] WBC (Bld) [#/Vol] 16.5 10*3/uL High 4.4-11.0 [facility] Comment on above: Performed By: #### L 500.2500, L100.0100 ####[facility] [address] [place], [address] Emergency Department Summary on 09-02-2024 Emergency Department Summary Normal [facility] Urinalysis, Completeon 09-02 BACTERIA 2+ /hpf Normal None Seen [facility] Comment on above: Order Comment: CLEAN CATCH Performed By: #### L 400.0001 ####[facility] [address] [place], [address] EPI,SQUAMOUS 0-5 SEEN Normal 5-10 [facility] Comment on above: Order Comment: CLEAN CATCH Performed By: #### L 400.0001 ####[facility] [address] [place], [address] Mucus Ql (Urine sed) RARE Normal [facility] Comment on above: Order Comment: CLEAN CATCH Performed By: #### L 400.0001 ####[facility] [address] [place], [address] WBC 0-5 SEEN Normal 0-5 [facility] Comment on above: Order Comment: CLEAN CATCH Performed By: #### L 400.0001 ####[facility] [address] [place], [address] RBC 0 SEEN Normal 0-5 [facility] Comment on above: Order Comment: CLEAN CATCH Performed By: #### L 400.0001 ####[facility] [address] [place], [address] 36on 08-07-2024 36 Medication: Skyrizi 150mg/ml Dosing Schedule: 150mg every 12 weeks Prior Authorization: Submitted date: 08.07.2024 [place] reference #: [id number] Approval dates: 08.07.2024-08.27.2024 Caitie [facility] [phone] [facility] Urine Cultureon 08-04-2024 [facility] Mixed Gram Positive Organisms Trinidad Count 11,000-25,000 MIX[facility] Mixed contaminants. Submit a new specimen if indicated. Normal [facility] Comment on above: Performed By: #### M 100.2200 ####[facility] [address] [place], [address] Basic Metabolic Profile (BMP )on 08-03-2024 BUN/CRE 9.9 RATIO Low 10-20 [facility] Comment on above: Order Comment: Call MD with results STAT Performed By: #### L 501.2300, L500.2500, L501.9520 ####[facility] [address] [place], [address] CA,Total 7.9 mg/dL Low 8.5-10.1 [facility] Comment on above: Order Comment: Call MD with results STAT Performed By: #### L 501.2300, L500.2500, L501.9520 ####[facility] [address] [place], [address] Chloride [Moles/Vol] 114 mmol/L High 98-107 [facility] Comment on above: Order Comment: Call MD with results STAT Performed By: #### L 501.2300, L500.2500, L501.9520 ####[facility] [address] [place], [address] CO2 [Moles/Vol] 22.0 mmol/L Normal 21.0-32.0 [facility] Comment on above: Order Comment: Call MD with results STAT Performed By: #### L 501.2300, L500.2500, L501.9520 ####[facility] [address] [place], [address] Creatinine [Mass/Vol] 0.61 mg/dL Normal 0.55-1.02 [facility] Comment on above: Order Comment: Call MD with results STAT Result Comment: The validity of the calculated GFR GFRAA in patients over70 years has not been determined. Clinical correlation isessential. Performed By: #### L 501.2300, L500.2500, L501.9520 ####[facility] [address] [place], [address] ECRCL 140.93 ml/min Normal [facility] Comment on above: Order Comment: Call MD with results STAT Performed By: #### L 501.2300, L500.2500, L501.9520 ####[facility] [address] [place], [address] EST GFR - AA 149 mL/min Normal >60 [facility] Comment on above: Order Comment: Call MD with results STAT Result Comment: Afri can Ecuadorean GFR Calc Performed By: #### L 501.2300, L500.2500, L501.9520 ####[facility] [address] [place], [address] GAP 5 Normal 5-15 [facility] Comment on above: Order Comment: Call MD with results STAT Performed By: #### L 501.2300, L500.2500, L501.9520 ####[facility] [address] [place], [address] GFR/1.73 sq M.predicted among non-blacks MDRD (S/P/Bld) [Vol rate/Area] 123 mL/min/{1.73_m2} Normal >60 [facility] Comment on above: Order Comment: Call MD with results STAT Result Comment: Non- GFR Calc Performed By: #### L 501.2300, L500.2500, L501.9520 ####[facility] [address] [place], [address] Glucose [Mass/Vol] 193 mg/dL High 74-106 [facility] Comment on above: Order Comment: Call MD with results STAT Result Comment: Fast ing Glucose result greater than or equal to 126 mg/dLsuggests DIABETES MELLITUS per A.D.A. criteria. Performed By: #### L 501.2300, L500.2500, L501.9520 ####[facility] [address] [place], [address] Potassium [Moles/Vol] 4.5 mmol/L Normal 3.5-5.1 [facility] Comment on above: Order Comment: Call MD with results STAT Result Comment: Slig ht Hemolysis, Result may be falsely increased. Performed By: #### L 501.2300, L500.2500, L501.9520 ####[facility] [address] [place], [address] Sodium [Moles/Vol] 140 mmol/L Normal 136-145 [facility] Comment on above: Order Comment: Call with results STAT Performed By: #### L 501.2300, L500.2500, L501.9520 ####[facility] [address] [place], [address] Urea nitrogen [Mass/Vol] 6 mg/dL Low 7-18 [facility] Comment on above: Order Comment: Call with results STAT Performed By: #### L 501.2300, L500.2500, L501.9520 ####[facility] [address] [place], [address] BUN Normal 7-18 [facility] Comment on above: Order Comment: Call with results STAT Result Comment: @NOT NEEDED BY [employer] DEVELOPER Performed By: #### L 500.2500 ####[facility] [address] [place], [address] BUN/CRE Normal 10-20 [facility] Comment on above: Order Comment: Call with results STAT Result Comment: @NOT NEEDED BY [place] [employer] DEVELOPER Performed By: #### L 500.2500 ####[facility] [address] [place], [address] CA,Total Normal 8.5-10.1 [facility] Comment on above: Order Comment: Call MD with results STAT Result Comment: @NOT NEEDED BY ROLANR2 SAP ABAP DEVELOPER Performed By: #### L 500.2500 ####[facility] [address] [place] [id number] CL Normal 98-107 [facility] Comment on above: Order Comment: Call MD with results STAT Result Comment: @NOT NEEDED BY ROLANR2 SAP ABAP DEVELOPER Performed By: #### L 500.2500 ####[facility] [address] [place] [id number] CO2 Normal 21.0-32.0 [facility] Comment on above: Order Comment: Call MD with results STAT Result Comment: @NOT NEEDED BY ROLANR2 SAP ABAP DEVELOPER Performed By: #### L 500.2500 ####[facility] [address] [place] [id number] CREAT,SERUM Normal 0.55-1.02 [facility] Comment on above: Order Comment: Call MD with results STAT Result Comment: @NOT NEEDED BY ROLANR2 SAP ABAP DEVELOPER Performed By: #### L 500.2500 ####[facility] [address] [place] [id number] EST GFR Normal >60 [facility] Comment on above: Order Comment: Call MD with results STAT Result Comment: @NOT NEEDED BY ROLANR2 SAP ABAP DEVELOPER Performed By: #### L 500.2500 ####[facility] [address] [place] [id number] EST GFR - AA Normal >60 [facility] Comment on above: Order Comment: Call MD with results STAT Result Comment: @NOT NEEDED BY ROLANR2 SAP ABAP DEVELOPER Performed By: #### L 500.2500 ####[facility] [address] [place], [address] GAP Normal 5-15 [facility] Comment on above: Order Comment: Call MD with results STAT Result Comment: @NOT NEEDED BY ROLANR2 SAP ABAP DEVELOPER Performed By: #### L 500.2500 ####[facility] [address] [place], [address] GLU Normal 74-106 [facility] Comment on above: Order Comment: Call MD with results STAT Result Comment: @NOT NEEDED BY TMPETRONAR2 [employer] ABAP DEVELOPER Performed By: #### L 500.2500 ####[facility] [address] [place], [address] Potassium Normal 3.5-5.1 [facility] Comment on above: Order Comment: Call MD with results STAT Result Comment: @NOT NEEDED BY TMPETRONAR2 SAP ABAP DEVELOPER Performed By: #### L 500.2500 ####[facility] [address] [place], [address] Basic Metabolic Profile (BMP) Normal 136-145 [facility] Comment on above: Order Comment: Call MD with results STAT Result Comment: @NOT NEEDED BY ROLANR2 SAP ABAP DEVELOPER Performed By: #### L 500.2500 ####[facility] [address] [place], [address] Bedside Glucoseon 08-03-2024 FINGERSTICK GLU 212 mg/dL High 74-106 [facility] Comment on above: Result Comment: EDGAR GEMENT OF PATIENT CARE PER NURSING PROTOCOL Performed By: #### L 501.080 ####[facility] [address] [place], [address] FINGERSTICK GLU 256 mg/dL High 74-106 [facility] Comment on above: Result Comment: EDGAR GEMENT OF PATIENT CARE PER NURSING PROTOCOL Performed By: #### L 501.080 ####[facility] [address] [place], [address] FINGERSTICK GLU 153 mg/dL High 74-106 [facility] Comment on above: Result Comment: EDGAR HUNG OF PATIENT CARE PER NURSING PROTOCOL Performed By: #### L 501.080 ####[facility] [address] [place], [address] Discharge Instructionon 12-0 Discharge Instruction Normal [facility] Phosphoruson 08-03-2024 Phosphate [Mass/Vol] 1.8 mg/dL Low 2.5-4.9 [facility] Comment on above: Order Comment: Call MD with results STAT Performed By: #### L 501.2300, L500.2500, L501.9520 ####[facility] [address] [place], [address] Thyroid Stim Hormone (TSH)on 08-03-2024 TSH 2.360 uIU/mL Normal 0.358-3.740 [facility] Comment on above: Order Comment: Call with results STAT Performed By: #### L 501.2300, L500.2500, L501.9520 ####[facility] [address] [place], [address] Acetone Serumon 08-02-2024 ACETONE SERUM Negative Normal NEG [facility] Comment on above: Performed By: #### L 501.6900 ####[facility] [address] [place], [address] ACETONE SERUM SMALL Abnormal NEG [facility] Comment on above: Result Comment: RESU LTS CALLED TO LFORREST 08/02/24 0107 Jhoana Martínez.REPORT READ BACK BY SAME. Performed By: #### L 100.0100, L503.6005, L700.6800, L501.6900, L500.3400, L501.5200, L501.2450, L500.2500 ####[facility] [address] [place], [address] Basic Metabolic Profile (BMP )on 08-02-2024 BUN Normal 7-18 [facility] Comment on above: Order Comment: Call MD with results STAT Result Comment: @NOT NEEDED BY PETRONAR2 SAP ABAP DEVELOPER Performed By: #### L 500.2500 ####[facility] [address] [place], [address] BUN/CRE Normal 10-20 [facility] Comment on above: Order Comment: Call MD with results STAT Result Comment: @NOT NEEDED BY PETRONAR2 SAP ABAP DEVELOPER Performed By: #### L 500.2500 ####[facility] [address] [place], [address] CA,Total Normal 8.5-10.1 [facility] Comment on above: Order Comment: Call MD with results STAT Result Comment: @NOT NEEDED BY PETRONAR2 SAP ABAP DEVELOPER Performed By: #### L 500.2500 ####[facility] [address] [place], [address] CL Normal 98-107 [facility] Comment on above: Order Comment: Call MD with results STAT Result Comment: @NOT NEEDED BY [facility] [employer] ABAP DEVELOPER Performed By: #### L 500.2500 ####[facility] [address] [place], [address] CO2 Normal 21.0-32.0 [facility] Comment on above: Order Comment: Call MD with results STAT Result Comment: @NOT NEEDED BY [facility]ALTHR2 SAP ABAP DEVELOPER Performed By: #### L 500.2500 ####[facility] [address] [place], [address] CREAT,SERUM Normal 0.55-1.02 [facility] Comment on above: Order Comment: Call MD with results STAT Result Comment: @NOT NEEDED BY TMPETRONAR2 SAP ABAP DEVELOPER Performed By: #### L 500.2500 ####[facility] [address] [place], [address] EST GFR Normal >60 [facility] Comment on above: Order Comment: Call MD with results STAT Result Comment: @NOT NEEDED BY TMPETRONAR2 SAP ABAP DEVELOPER Performed By: #### L 500.2500 ####[facility] [address] [place], [address] EST GFR - AA Normal >60 [facility] Comment on above: Order Comment: Call MD with results STAT Result Comment: @NOT NEEDED BY ROLANR2 SAP ABAP DEVELOPER Performed By: #### L 500.2500 ####[facility] [address] [place], [address] GAP Normal 5-15 [facility] Comment on above: Order Comment: Call MD with results STAT Result Comment: @NOT NEEDED BY TMPETRONAR2 SAP ABAP DEVELOPER Performed By: #### L 500.2500 ####[facility] [address] [place], [address] GLU Normal 74-106 [facility] Comment on above: Order Comment: Call MD with results STAT Result Comment: @NOT NEEDED BY TMPETRONAR2 SAP ABAP DEVELOPER Performed By: #### L 500.2500 ####[facility] [address] [place], [address] Potassium Normal 3.5-5.1 [facility] Comment on above: Order Comment: Call MD with results STAT Result Comment: @NOT NEEDED BY TMPETRONAR2 SAP ABAP DEVELOPER Performed By: #### L 500.2500 ####[facility] [address] [place], [address] Basic Metabolic Profile (BMP) Normal 136-145 [facility] Comment on above: Order Comment: Call MD with results STAT Result Comment: @NOT NEEDED BY ROLANR2 SAP ABAP DEVELOPER Performed By: #### L 500.2500 ####[facility] [address] [place], [address] BUN Normal 7-18 [facility] Comment on above: Order Comment: Call MD with results STAT Result Comment: @NOT NEEDED BY TMPETRONAR2 SAP ABAP DEVELOPER Performed By: #### L 500.2500 ####[facility] [address] [place], [address] BUN/CRE Normal 10-20 [facility] Comment on above: Order Comment: Call MD with results STAT Result Comment: @NOT NEEDED BY ROLANR2 SAP ABAP DEVELOPER Performed By: #### L 500.2500 ####[facility] [address] [place], [address] CA,Total Normal 8.5-10.1 [facility] Comment on above: Order Comment: Call MD with results STAT Result Comment: @NOT NEEDED BY ROLANR2 SAP ABAP DEVELOPER Performed By: #### L 500.2500 ####[facility] [address] [place], [address] CL Normal 98-107 [facility] Comment on above: Order Comment: Call MD with results STAT Result Comment: @NOT NEEDED BY PETRONAR2 SAP ABAP DEVELOPER Performed By: #### L 500.2500 ####[facility] [address] [place], [address] CO2 Normal 21.0-32.0 [facility] Comment on above: Order Comment: Call MD with results STAT Result Comment: @NOT NEEDED BY ROLANR2 SAP ABAP DEVELOPER Performed By: #### L 500.2500 ####[facility] [address] [place], [address] CREAT,SERUM Normal 0.55-1.02 [facility] Comment on above: Order Comment: Call with results STAT Result Comment: @NOT NEEDED BY ROLANR2 SAP ABAP DEVELOPER Performed By: #### L 500.2500 ####[facility] [address] [place], [address] EST GFR Normal >60 [facility] Comment on above: Order Comment: Call with results STAT Result Comment: @NOT NEEDED BY ROLANR2 SAP ABAP DEVELOPER Performed By: #### L 500.2500 ####[facility] [address] [place], [address] EST GFR - AA Normal >60 [facility] Comment on above: Order Comment: Call MD with results STAT Result Comment: @NOT NEEDED BY PETORNAR2 SAP ABAP DEVELOPER Performed By: #### L 500.2500 ####[facility] [address] [place], [address] GAP Normal 5-15 [facility] Comment on above: Order Comment: Call MD with results STAT Result Comment: @NOT NEEDED BY [facility] SAP ABAP DEVELOPER Performed By: #### L 500.2500 ####[facility] [address] [place], [address] GLU Normal 74-106 [facility] Comment on above: Order Comment: Call MD with results STAT Result Comment: @NOT NEEDED BY TMPETRONAR2 SAP ABAP DEVELOPER Performed By: #### L 500.2500 ####[facility] [address] [place], [address] Potassium Normal 3.5-5.1 [facility] Comment on above: Order Comment: Call MD with results STAT Result Comment: @NOT NEEDED BY PETRONAR2 SAP ABAP DEVELOPER Performed By: #### L 500.2500 ####[facility] [address] [place], [address] Basic Metabolic Profile (BMP) Normal 136-145 [facility] Comment on above: Order Comment: Call MD with results STAT Result Comment: @NOT NEEDED BY [facility] SAP ABAP DEVELOPER Performed By: #### L 500.2500 ####[facility] [address] [place], [address] BUN/CRE 11.7 RATIO Normal 10-20 [facility] Comment on above: Order Comment: Call MD with results STAT Performed By: #### L 500.2500 ####[facility] [address] [place], [address] CA,Total 7.7 mg/dL Low 8.5-10.1 [facility] Comment on above: Order Comment: Call MD with results STAT Performed By: #### L 500.2500 ####[facility] [address] [place], [address] Chloride [Moles/Vol] 116 mmol/L High 98-107 [facility] Comment on above: Order Comment: Call MD with results STAT Performed By: #### L 500.2500 ####[facility] [address] [place], [address] CO2 [Moles/Vol] 21.0 mmol/L Normal 21.0-32.0 [facility] Comment on above: Order Comment: Call MD with results STAT Performed By: #### L 500.2500 ####[facility] [address] [place], [address] Creatinine [Mass/Vol] 0.68 mg/dL Normal 0.55-1.02 [facility] Comment on above: Order Comment: Call MD with results STAT Result Comment: The validity of the calculated GFR GFRAA in patients over70 years has not been determined. Clinical correlation isessential. Performed By: #### L 500.2500 ####[facility] [address] [place], [address] ECRCL 126.42 ml/min Normal [facility] Comment on above: Order Comment: Call MD with results STAT Performed By: #### L 500.2500 ####[facility] [address] [place], [address] EST GFR - AA 130 mL/min Normal >60 [facility] Comment on above: Order Comment: Call MD with results STAT Result Comment: Afri can Ecuadorean GFR Calc Performed By: #### L 500.2500 ####[facility] [address] [place], [address] GAP 5 Normal 5-15 [facility] Comment on above: Order Comment: Call MD with results STAT Performed By: #### L 500.2500 ####[facility] [address] [place], [address] GFR/1.73 sq M.predicted among non-blacks MDRD (S/P/Bld) [Vol rate/Area] 107 mL/min/{1.73_m2} Normal >60 [facility] Comment on above: Order Comment: Call MD with results STAT Result Comment: Non- GFR Calc Performed By: #### L 500.2500 ####[facility] [address] [place], [address] Glucose [Mass/Vol] 116 mg/dL High 74-106 [facility] Comment on above: Order Comment: Call MD with results STAT Result Comment: Fast ing Glucose result from 100 to 125 mg/dLsuggests IMPAIRED HOMEOSTASIS per A.D.A. criteria. Performed By: #### L 500.2500 ####[facility] [address] [place], [address] Potassium [Moles/Vol] 3.8 mmol/L Normal 3.5-5.1 [facility] Comment on above: Order Comment: Call MD with results STAT Performed By: #### L 500.2500 ####[facility] [address] [place], [address] Sodium [Moles/Vol] 141 mmol/L Normal 136-145 [facility] Comment on above: Order Comment: Call MD with results STAT Performed By: #### L 500.2500 ####[facility] [address] [place], [address] Urea nitrogen [Mass/Vol] 8 mg/dL Normal 7-18 [facility] Comment on above: Order Comment: Call MD with results STAT Performed By: #### L 500.2500 ####[facility] [address] [place], [address] BUN Normal 7-18 [facility] Comment on above: Order Comment: Call MD with results STAT Result Comment: NO S PECIMEN DRAWN Performed By: #### L 500.2500 ####[facility] [address] [place], [address] BUN/CRE Normal 10-20 [facility] Comment on above: Order Comment: Call MD with results STAT Result Comment: NO S PECIMEN DRAWN Performed By: #### L 500.2500 ####[facility] [address] [place], [address] CA,Total Normal 8.5-10.1 [facility] Comment on above: Order Comment: Call MD with results STAT Result Comment: NO S PECIMEN DRAWN Performed By: #### L 500.2500 ####[facility] [address] [place], [address] CL Normal 98-107 [facility] Comment on above: Order Comment: Call MD with results STAT Result Comment: NO S PECIMEN DRAWN Performed By: #### L 500.2500 ####[facility] [address] [place], [address] CO2 Normal 21.0-32.0 [facility] Comment on above: Order Comment: Call MD with results STAT Result Comment: NO S PECIMEN DRAWN Performed By: #### L 500.2500 ####[facility] [address] [place], [address] CREAT,SERUM Normal 0.55-1.02 [facility] Comment on above: Order Comment: Call MD with results STAT Result Comment: NO S PECIMEN DRAWN Performed By: #### L 500.2500 ####[facility] [address] [place], [address] EST GFR Normal >60 [facility] Comment on above: Order Comment: Call MD with results STAT Result Comment: NO S PECIMEN DRAWN Performed By: #### L 500.2500 ####[facility] [address] [place], [address] EST GFR - AA Normal >60 [facility] Comment on above: Order Comment: Call MD with results STAT Result Comment: NO S PECIMEN DRAWN Performed By: #### L 500.2500 ####[facility] [address] [place], [address] GAP Normal 5-15 [facility] Comment on above: Order Comment: Call MD with results STAT Result Comment: NO S PECIMEN DRAWN Performed By: #### L 500.2500 ####[facility] [address] [place], [address] GLU Normal 74-106 [facility] Comment on above: Order Comment: Call MD with results STAT Result Comment: NO S PECIMEN DRAWN Performed By: #### L 500.2500 ####[facility] [address] [place], [address] Potassium Normal 3.5-5.1 [facility] Comment on above: Order Comment: Call MD with results STAT Result Comment: NO S PECIMEN DRAWN Performed By: #### L 500.2500 ####[facility] [address] [place], [address] Basic Metabolic Profile (BMP) Normal 136-145 [facility] Comment on above: Order Comment: Call MD with results STAT Result Comment: NO S PECIMEN DRAWN Performed By: #### L 500.2500 ####[facility] [address] [place], [address] BUN Normal 7-18 [facility] Comment on above: Order Comment: Call MD with results STAT Result Comment: NO S PECIMEN DRAWN Performed By: #### L 500.2500, L501.9985 ####[facility] [address] [place], [address] BUN/CRE Normal 10-20 [facility] Comment on above: Order Comment: Call MD with results STAT Result Comment: NO S PECIMEN DRAWN Performed By: #### L 500.2500, L501.9985 ####[facility] [address] [place], [address] CA,Total Normal 8.5-10.1 [facility] Comment on above: Order Comment: Call MD with results STAT Result Comment: NO S PECIMEN DRAWN Performed By: #### L 500.2500, L501.9985 ####[facility] [address] [place], [address] CL Normal 98-107 [facility] Comment on above: Order Comment: Call MD with results STAT Result Comment: NO S PECIMEN DRAWN Performed By: #### L 500.2500, L501.9985 ####[facility] [address] [place], [address] CO2 Normal 21.0-32.0 [facility] Comment on above: Order Comment: Call MD with results STAT Result Comment: NO S PECIMEN DRAWN Performed By: #### L 500.2500, L501.9985 ####[facility] [address] [place], [address] CREAT,SERUM Normal 0.55-1.02 [facility] Comment on above: Order Comment: Call MD with results STAT Result Comment: NO S PECIMEN DRAWN Performed By: #### L 500.2500, L501.9985 ####[facility] [address] [place], [address] EST GFR Normal >60 [facility] Comment on above: Order Comment: Call MD with results STAT Result Comment: NO S PECIMEN DRAWN Performed By: #### L 500.2500, L501.9985 ####[facility] [address] [place], [address] EST GFR - AA Normal >60 [facility] Comment on above: Order Comment: Call MD with results STAT Result Comment: NO S PECIMEN DRAWN Performed By: #### L 500.2500, L501.9985 ####[facility] [address] [place], [address] GAP Normal 5-15 [facility] Comment on above: Order Comment: Call MD with results STAT Result Comment: NO S PECIMEN DRAWN Performed By: #### L 500.2500, L501.9985 ####[facility] [address] [place], [address] GLU Normal 74-106 [facility] Comment on above: Order Comment: Call MD with results STAT Result Comment: NO S PECIMEN DRAWN Performed By: #### L 500.2500, L501.9985 ####[facility] [address] [place], [address] Potassium Normal 3.5-5.1 [facility] Comment on above: Order Comment: Call MD with results STAT Result Comment: NO S PECIMEN DRAWN Performed By: #### L 500.2500, L501.9985 ####[facility] [address] [place], [address] Basic Metabolic Profile (BMP) Normal 136-145 [facility] Comment on above: Order Comment: Call MD with results STAT Result Comment: NO S PECIMEN DRAWN Performed By: #### L 500.2500, L501.9985 ####[facility] [address] [place], [address] BUN/CRE 16.6 RATIO Normal 10-20 [facility] Comment on above: Performed By: #### L 100.0100, L503.6005, L700.6800, L501.6900, L500.3400, L501.5200, L501.2450, L500.2500 ####[facility] [address] [place], [address] CA,Total 8.9 mg/dL Normal 8.5-10.1 [facility] Comment on above: Performed By: #### L 100.0100, L503.6005, L700.6800, L501.6900, L500.3400, L501.5200, L501.2450, L500.2500 ####[facility] [address] [place], [address] Chloride [Moles/Vol] 107 mmol/L Normal 98-107 [facility] Comment on above: Performed By: #### L 100.0100, L503.6005, L700.6800, L501.6900, L500.3400, L501.5200, L501.2450, L500.2500 ####[facility] [address] [place], [place], [phone]) CO2 [Moles/Vol] 17.0 mmol/L Low 21.0-32.0 [facility] Comment on above: Performed By: #### L 100.0100, L503.6005, L700.6800, L501.6900, L500.3400, L501.5200, L501.2450, L500.2500 ####[facility] [address] [place] [id number] Creatinine [Mass/Vol] 0.84 mg/dL Normal 0.55-1.02 [facility] Comment on above: Result Comment: The validity of the calculated GFR GFRAA in patients over70 years has not been determined. Clinical correlation isessential. Performed By: #### L 100.0100, L503.6005, L700.6800, L501.6900, L500.3400, L501.5200, L501.2450, L500.2500 ####[facility] [address] [place], [address] ECRCL 102.34 ml/min Normal [facility] Comment on above: Performed By: #### L 100.0100, L503.6005, L700.6800, L501.6900, L500.3400, L501.5200, L501.2450, L500.2500 ####[facility] [address] [place], [address] EST GFR - AA 102 mL/min Normal >60 [facility] Comment on above: Result Comment: Afri can Ecuadorean GFR Calc Performed By: #### L 100.0100, L503.6005, L700.6800, L501.6900, L500.3400, L501.5200, L501.2450, L500.2500 ####[facility] [address] [place], [place], [id number] GAP 14 Normal 5-15 [facility] Comment on above: Performed By: #### L 100.0100, L503.6005, L700.6800, L501.6900, L500.3400, L501.5200, L501.2450, L500.2500 ####[facility] [address] [place], [address] GFR/1.73 sq M.predicted among non-blacks MDRD (S/P/Bld) [Vol rate/Area] 84 mL/min/{1.73_m2} Normal >60 [facility] Comment on above: Result Comment: Non- GFR Calc Performed By: #### L 100.0100, L503.6005, L700.6800, L501.6900, L500.3400, L501.5200, L501.2450, L500.2500 ####[facility] [address] [place], [place], [phone] Glucose [Mass/Vol] 253 mg/dL High 74-106 [facility] Comment on above: Result Comment: Gluc ose result greater than or equal to 200 mg/dLsuggests DIABETES MELLITUS per A.D.A. criteria. Performed By: #### L 100.0100, L503.6005, L700.6800, L501.6900, L500.3400, L501.5200, L501.2450, L500.2500 ####[facility] [address] [place], [place], [phone] Potassium [Moles/Vol] 3.4 mmol/L Low 3.5-5.1 [facility] Comment on above: Performed By: #### L 100.0100, L503.6005, L700.6800, L501.6900, L500.3400, L501.5200, L501.2450, L500.2500 ####[facility] [address] [place], [address] Sodium [Moles/Vol] 139 mmol/L Normal 136-145 [facility] Comment on above: Performed By: #### L 100.0100, L503.6005, L700.6800, L501.6900, L500.3400, L501.5200, L501.2450, L500.2500 ####[facility] [address] [place], [address] Urea nitrogen [Mass/Vol] 14 mg/dL Normal 7-18 [facility] Comment on above: Performed By: #### L 100.0100, L503.6005, L700.6800, L501.6900, L500.3400, L501.5200, L501.2450, L500.2500 ####[facility] [address] [place], [address] Bedside Glucoseon 08-02-2024 FINGERSTICK GLU 246 mg/dL High 74-106 [facility] Comment on above: Result Comment: EDGAR GEMENT OF PATIENT CARE PER NURSING PROTOCOL Performed By: #### L 501.080 ####[facility] [address] [place], [address] FINGERSTICK GLU 77 mg/dL Normal 74-106 [facility] Comment on above: Result Comment: EDGAR GEMENT OF PATIENT CARE PER NURSING PROTOCOL Performed By: #### L 501.080 ####[facility] [address] [place], [address] FINGERSTICK GLU 90 mg/dL Normal 74-106 [facility] Comment on above: Result Comment: EDGAR GEMENT OF PATIENT CARE PER NURSING PROTOCOL Performed By: #### L 501.080 ####[facility] [address] [place], [address] FINGERSTICK GLU 163 mg/dL High 74-106 [facility] Comment on above: Result Comment: EDGAR GEMENT OF PATIENT CARE PER NURSING PROTOCOL Performed By: #### L 501.080 ####[facility] [address] [place], [address] FINGERSTICK GLU 102 mg/dL Normal 74-106 [facility] Comment on above: Result Comment: EDGAR GEMENT OF PATIENT CARE PER NURSING PROTOCOL Performed By: #### L 501.080 ####[facility] [address] [place], [address] FINGERSTICK GLU 147 mg/dL High 74-106 [facility] Comment on above: Result Comment: EDGAR GEMENT OF PATIENT CARE PER NURSING PROTOCOL Performed By: #### L 501.080 ####[facility] [address] [place], [address] FINGERSTICK GLU 83 mg/dL Normal 74-106 [facility] Comment on above: Result Comment: EDGAR GEMENT OF PATIENT CARE PER NURSING PROTOCOL Performed By: #### L 501.080 ####[facility] [address] [place], [address] FINGERSTICK GLU 121 mg/dL High 74-106 [facility] Comment on above: Result Comment: EDGAR GEMENT OF PATIENT CARE PER NURSING PROTOCOL Performed By: #### L 501.080 ####[facility] [address] [place], [address] FINGERSTICK GLU 95 mg/dL Normal 74-106 [facility] Comment on above: Result Comment: EDGAR GEMENT OF PATIENT CARE PER NURSING PROTOCOL Performed By: #### L 501.080 ####[facility] [address] [place], [address] FINGERSTICK GLU 123 mg/dL High 74-106 [facility] Comment on above: Result Comment: EDGAR GEMENT OF PATIENT CARE PER NURSING PROTOCOL Performed By: #### L 501.080 ####[facility] [address] [place], [address] FINGERSTICK GLU 147 mg/dL High 74-106 [facility] Comment on above: Result Comment: EDGAR GEMENT OF PATIENT CARE PER NURSING PROTOCOL Performed By: #### L 501.080 ####[facility] [address] [place], [address] FINGERSTICK GLU 263 mg/dL High 74-106 [facility] Comment on above: Result Comment: EDGAR GEMENT OF PATIENT CARE PER NURSING PROTOCOL Performed By: #### L 501.080 ####[facility] [address] [place], [address] FINGERSTICK GLU 251 mg/dL High 74-106 [facility] Comment on above: Result Comment: EDGAR GEMENT OF PATIENT CARE PER NURSING PROTOCOL Performed By: #### L 501.080 ####[facility] [address] [place], [address] CBC W/Diff, Automatedon 12-0 Absolute Lymph 1.00 X10 3/uL Normal 0.83-4.51 [facility] Comment on above: Performed By: #### L 100.0100, L503.6005, L700.6800, L501.6900, L500.3400, L501.5200, L501.2450, L500.2500 ####[facility] [address] [place], [address] Absolute Neut 11.9 X10 3/uL High 2.0-7.7 [facility] Comment on above: Performed By: #### L 100.0100, L503.6005, L700.6800, L501.6900, L500.3400, L501.5200, L501.2450, L500.2500 ####[facility] [address] [place], [address] Basophils/100 WBC (Bld) 0.2 % Normal 0-1 [facility] Comment on above: Performed By: #### L 100.0100, L503.6005, L700.6800, L501.6900, L500.3400, L501.5200, L501.2450, L500.2500 ####[facility] [address] [place], [address] Eosinophils/100 WBC (Bld) 0.0 % Normal 0-5 [facility] Comment on above: Performed By: #### L 100.0100, L503.6005, L700.6800, L501.6900, L500.3400, L501.5200, L501.2450, L500.2500 ####[facility] [address] [place], [address] Erythrocyte distribution width (RBC) [Ratio] 12.3 % Normal 11.6-14.6 [facility] Comment on above: Performed By: #### L 100.0100, L503.6005, L700.6800, L501.6900, L500.3400, L501.5200, L501.2450, L500.2500 ####[facility] [address] [place], [address] Hematocrit (Bld) [Volume fraction] 38.3 % Normal 37-47 [facility] Comment on above: Performed By: #### L 100.0100, L503.6005, L700.6800, L501.6900, L500.3400, L501.5200, L501.2450, L500.2500 ####[facility] [address] [place], [address] Hemoglobin (Bld) [Mass/Vol] 13.0 g/dL Normal 12.0-15.0 [facility] Comment on above: Performed By: #### L 100.0100, L503.6005, L700.6800, L501.6900, L500.3400, L501.5200, L501.2450, L500.2500 ####[facility] [address] [place], [address] IG% 0.600 Normal 0.0-0.9 [facility] Comment on above: Result Comment: IG% - Immature Granulocytes (promyelocytes, myelocytes andmetamyelocytes) > 1% indicates that a LEFT SHIFT is Present. Performed By: #### L 100.0100, L503.6005, L700.6800, L501.6900, L500.3400, L501.5200, L501.2450, L500.2500 ####[facility] [address] [place], [address] Lymphocytes/100 WBC (Bld) 7.5 % Low 19-41 [facility] Comment on above: Performed By: #### L 100.0100, L503.6005, L700.6800, L501.6900, L500.3400, L501.5200, L501.2450, L500.2500 ####[facility] [address] [place], [address] MCH (RBC) [Entitic mass] 29.7 pg Normal 27.0-32.0 [facility] Comment on above: Performed By: #### L 100.0100, L503.6005, L700.6800, L501.6900, L500.3400, L501.5200, L501.2450, L500.2500 ####[facility] [address] [place], [address] MCHC (RBC) [Mass/Vol] 33.9 g/dL Normal 32-36 [facility] Comment on above: Performed By: #### L 100.0100, L503.6005, L700.6800, L501.6900, L500.3400, L501.5200, L501.2450, L500.2500 ####[facility] [address] [place], [address] MCV (RBC) [Entitic vol] 87.6 fL Normal 81-99 [facility] Comment on above: Performed By: #### L 100.0100, L503.6005, L700.6800, L501.6900, L500.3400, L501.5200, L501.2450, L500.2500 ####[facility] [address] [place], [address] Monocytes/100 WBC (Bld) 2.8 % Normal 0-10 [facility] Comment on above: Performed By: #### L 100.0100, L503.6005, L700.6800, L501.6900, L500.3400, L501.5200, L501.2450, L500.2500 ####[facility] [address] [place], [address] Neutrophils/100 WBC (Bld) 88.9 % High 47-70 [facility] Comment on above: Performed By: #### L 100.0100, L503.6005, L700.6800, L501.6900, L500.3400, L501.5200, L501.2450, L500.2500 ####[facility] [address] [place], [address] Nucleated RBC (Bld) [#/Vol] 0 10*3/uL Normal 0-5 [facility] Comment on above: Performed By: #### L 100.0100, L503.6005, L700.6800, L501.6900, L500.3400, L501.5200, L501.2450, L500.2500 ####[facility] [address] [place], [address] Platelet mean volume (Bld) [Entitic vol] 13.0 fL High 6.2-12.0 [facility] Comment on above: Performed By: #### L 100.0100, L503.6005, L700.6800, L501.6900, L500.3400, L501.5200, L501.2450, L500.2500 ####[facility] [address] [place], [address] Platelets (Bld) [#/Vol] 169 10*3/uL Normal 150-450 [facility] Comment on above: Performed By: #### L 100.0100, L503.6005, L700.6800, L501.6900, L500.3400, L501.5200, L501.2450, L500.2500 ####[facility] [address] [place], [place], [phone] RBC (Bld) [#/Vol] 4.37 10*6/uL Normal 4.2-5.4 [facility] Comment on above: Performed By: #### L 100.0100, L503.6005, L700.6800, L501.6900, L500.3400, L501.5200, L501.2450, L500.2500 ####[facility] [address] [place], [address] RDW SD 39.6 fl Normal 35.1-43.9 [facility] Comment on above: Performed By: #### L 100.0100, L503.6005, L700.6800, L501.6900, L500.3400, L501.5200, L501.2450, L500.2500 ####[facility] [address] [place], [address] WBC (Bld) [#/Vol] 13.4 10*3/uL High 4.4-11.0 [facility] Comment on above: Performed By: #### L 100.0100, L503.6005, L700.6800, L501.6900, L500.3400, L501.5200, L501.2450, L500.2500 ####[facility] [address] [place], [address] Emergency Department Summary on 08-02-2024 Emergency Department Summary Normal [facility] H AND P Exam - Hospitaliston 08-02-2024 H&P Exam - Hospitalist Normal [facility] Hemoglobin A1con 08-02-2024 HbA1c (Bld) [Mass fraction] 7.9 % High 3.8-5.6 [facility] Comment on above: Result Comment: Norm al < 5.7 % Prediabetic 5.7 - 6.4 % Diabetic >or= 6.5 % Please note range changes. Performed By: #### L 500.2500, L501.9985 ####[facility] [address] [place], [address] Kidney and Bladderon 024 Kidney and Bladder Normal [facility] Lactic Acidon 08-02-2024 Lactate [Moles/Vol] 1.4 mmol/L Normal 0.4-1.9 [facility] Comment on above: Performed By: #### L 503.6005 ####[facility] [address] [place], [address] Lactate [Moles/Vol] 0.9 mmol/L Normal 0.4-1.9 [facility] Comment on above: Order Comment: Y Performed By: #### L 503.6005 ####[facility] [address] [place], [address] Lactate [Moles/Vol] 2.2 mmol/L Invalid Interpretation Code 0.4-1.9 [facility] Comment on above: Order Comment: Y Result Comment: Crit ical Result(s) Called at: 01:06:13 08/02/2024 by:Jhoana Martínez lforrestResults read back by same. Performed By: #### L 100.0100, L503.6005, L700.6800, L501.6900, L500.3400, L501.5200, L501.2450, L500.2500 ####[facility] [address] [place], [address] Lipaseon 08-02-2024 Lipase [Catalytic activity/Vol] U/L Low 13-75 [facility] Comment on above: Result Comment: Sulma schmitz note:LIPASE revised reference range effective 22.New Lipase methodology. Expected to produce lower valuesthan the previous assay method.NEW Reference Range: 13 - 75 U/L Performed By: #### L 100.0100, L503.6005, L700.6800, L501.6900, L500.3400, L501.5200, L501.2450, L500.2500 ####[facility] [address] [place], [address] Liver Profileon 08-02-2024 Albumin [Mass/Vol] 4.1 g/dL Normal 3.2-5.0 [facility] Comment on above: Performed By: #### L 100.0100, L503.6005, L700.6800, L501.6900, L500.3400, L501.5200, L501.2450, L500.2500 ####[facility] [address] [place], [address] ALK P 78 U/L Normal 45-117 [facility] Comment on above: Performed By: #### L 100.0100, L503.6005, L700.6800, L501.6900, L500.3400, L501.5200, L501.2450, L500.2500 ####[facility] [address] [place], [address] ALT [Catalytic activity/Vol] 15 U/L Normal 13-56 [facility] Comment on above: Performed By: #### L 100.0100, L503.6005, L700.6800, L501.6900, L500.3400, L501.5200, L501.2450, L500.2500 ####[facility] [address] [place], [address] AST [Catalytic activity/Vol] 13 U/L Low 15-37 [facility] Comment on above: Performed By: #### L 100.0100, L503.6005, L700.6800, L501.6900, L500.3400, L501.5200, L501.2450, L500.2500 ####[facility] [address] [place], [address] Bilirubin [Mass/Vol] 1.20 mg/dL High 0.20-1.00 [facility] Comment on above: Result Comment: For patients on eltrombopag therapy, use of Dimension Heath TBIL is not recommended. Performed By: #### L 100.0100, L503.6005, L700.6800, L501.6900, L500.3400, L501.5200, L501.2450, L500.2500 ####[facility] [address] [place], [address] Bilirubin.direct [Mass/Vol] 0.38 mg/dL High 0.00-0.30 [facility] Comment on above: Performed By: #### L 100.0100, L503.6005, L700.6800, L501.6900, L500.3400, L501.5200, L501.2450, L500.2500 ####[facility] [address] [place], [address] Globulin (S) [Mass/Vol] 3.3 g/dL Normal 2.2-4.2 [facility] Comment on above: Performed By: #### L 100.0100, L503.6005, L700.6800, L501.6900, L500.3400, L501.5200, L501.2450, L500.2500 ####[facility] [address] [place], [address] T PROT 7.4 g/dL Normal 6.4-8.2 [facility] Comment on above: Performed By: #### L 100.0100, L503.6005, L700.6800, L501.6900, L500.3400, L501.5200, L501.2450, L500.2500 ####[facility] [address] [place], [address] Magnesiumon 08-02-2024 Magnesium [Mass/Vol] 2.5 mg/dL Normal 1.6-2.6 [facility] Comment on above: Performed By: #### L 501.5200, L501.2300 ####[facility] [address] [place], [address] Magnesium [Mass/Vol] 1.5 mg/dL Low 1.6-2.6 [facility] Comment on above: Performed By: #### L 100.0100, L503.6005, L700.6800, L501.6900, L500.3400, L501.5200, L501.2450, L500.2500 ####[facility] [address] [place], [address] Phosphoruson 08-02-2024 Phosphate [Mass/Vol] 2.2 mg/dL Low 2.5-4.9 [facility] Comment on above: Performed By: #### L 501.5200, L501.2300 ####[facility] [address] [place], [address] ,Serum,hCG Quali.on 08-02-2024 HCG, SERUM QUAL Negative Normal [facility] Comment on above: Performed By: #### L 100.0100, L503.6005, L700.6800, L501.6900, L500.3400, L501.5200, L501.2450, L500.2500 ####[facility] [address] [place], [address] Urinalysis, Completeon 08-02 BACTERIA 1+ /hpf Normal None Seen [facility] Comment on above: Order Comment: CLEAN CATCH Performed By: #### L 400.0001 ####[facility] [address] [place], [address] EPI,SQUAMOUS 0-5 SEEN Normal 5-10 [facility] Comment on above: Order Comment: CLEAN CATCH Performed By: #### L 400.0001 ####[facility] [address] [place], [address] WBC 0-5 SEEN Normal 0-5 [facility] Comment on above: Order Comment: CLEAN CATCH Performed By: #### L 400.0001 ####[facility] [address] [place], [address] Mucus Ql (Urine sed) 0 SEEN Normal [facility] Comment on above: Order Comment: CLEAN CATCH Performed By: #### L 400.0001 ####[facility] [address] [place], [address] RBC 0 SEEN Normal 0-5 [facility] Comment on above: Order Comment: CLEAN CATCH Performed By: #### L 400.0001 ####[facility] [address] [place], [address] Urine Drug Screen (VISTA)on 08-02-2024 AMPHETAMINES Negative Normal <1000 ng/mL [facility] Comment on above: Performed By: #### L 505.5000 ####[facility] [address] [place], [address] BARBITIURATES Negative Normal < 200 ng/mL [facility] Comment on above: Performed By: #### L 505.5000 ####[facility] [address] [place], [address] BENZODIAZIPINE Negative Normal < 200 ng/mL [facility] Comment on above: Performed By: #### L 505.5000 ####[facility] [address] [place], [address] COCAINE Negative Normal < 300 ng/mL [facility] Comment on above: Performed By: #### L 505.5000 ####[facility] [address] [place] [phone] ECSTACY Negative Normal < 500 ng/mL [facility] Comment on above: Performed By: #### L 505.5000 ####[facility] [address] [place] [id number] METHADONE Negative Normal < 300 ng/mL [facility] Comment on above: Performed By: #### L 505.5000 ####[facility] [address] [place] [address] OPIATES Negative Normal < 300 ng/mL [facility] Comment on above: Performed By: #### L 505.5000 ####[facility] [address] [place] [address] PCP Negative Normal < 25 ng/mL [facility] Comment on above: Performed By: #### L 505.5000 ####[facility] [address] [place], [address] THC Positive Abnormal < 50 ng/mL [facility] Comment on above: Performed By: #### L 505.5000 ####[facility] [address] [place], [phone] VISTA UDS PH 5 Normal [facility] Comment on above: Performed By: #### L 505.5000 ####[facility] [address] [place], [address] Venous Blood Gason 4 Blood Gas Type ISABELLE Normal [facility] Comment on above: Performed By: #### L 9000.0810 ####[facility] [address] [place], [address] CO2 [Moles/Vol] 17 mmol/L Low 23-33 [facility] Comment on above: Performed By: #### L 9000.0810 ####[facility] [address] [place], [address] HCO3 (Bld) [Moles/Vol] 16 mmol/L Low 22-26 [facility] Comment on above: Performed By: #### L 0.0810 ####[facility] [address] [place], [address] O2 Delivery Dev Room Air [facility] Comment on above: Performed By: #### L 9000.0810 ####[facility] [address] [place], [address] SITE Not entered [facility] Comment on above: Performed By: #### L 9000.0810 ####[facility] [address] [place], [address] VBG BE -9 mmol/L Low -1.0-3.5 [facility] Comment on above: Performed By: #### L 9000.0810 ####[facility] [address] [place], [address] VBG pCO2 28.0 mmHg Low 41-51 [facility] Comment on above: Performed By: #### L 9000.0810 ####[facility] [address] [place], [address] VBG pH 7.38 Normal 7.32-7.42 [facility] Comment on above: Performed By: #### L 9000.0810 ####[facility] [address] [place], [address] VBG PO2 46 mmHg High 25-40 [facility] Comment on above: Performed By: #### L 9000.0810 ####[facility] [address] [place], [address] VBG SO2 82 High 50-70 [facility] Comment on above: Performed By: #### L 9000.0810 ####[facility] [address] [place], [address] Chest PA and Lateralon 08-01 Chest PA and Lateral Normal [facility] Emergency Department Summary on 08-01-2024 Emergency Department Summary Normal [facility] CNNURSEon 07-23-2024 CNNURSE Nurse Visit (ENDIMT) KATHLEEN VILLA ([id number]) 1995 F T Date Time Provider Department 07/23/24 9:00 AM VAMSI CARSON During your visit today, we recorded the following information about you: Vamsi Carson RN 07/23/2024 9:04 AM Signed DIABETES CARE AND EDUCATION VISIT Location: [place] Type of visit: In person individual PATIENT'S [...] TIME: 8:47 AM Referring Provider: KVNG LEWIS [[id number]] Allergies As of Date: 07/23/2024 Noted Allergy [...] Date Reviewed: 07/19/2024 Reviewed by: Jessica Guerrero APRN.PRE PAROLE COUNSELING AIDE - Fully Assessed Visit Diagnoses:Type 1 diabetes mellitus with hyperglycemia, with long-term current use of insulin (HCC) [E10.65] Insulin pump status [Z96.41] Order(s):CONSULT TO DIABETES EDUCATION DSME [1693388] Order #: [id number]: 2 Prescriptions as of 07/23/2024 - Acetone, [...] Units subcutaneously every 24 hours. - Insulin [place], Disposable, (PEN NEEDLE) 32 gauge x 5/32 [...] (post-traumatic stress disorder) [F43.10] 12/25/2012 DVT prophylaxis [FHY3113] 12/25/2012 09/04/2013 DISPOSITION AND FOLLOW-UP [V999.01] 12/25/2012 09/04/2013 HTN (hypertension) [I10] Hypertension in , antepartum [O16.9] 09/19/2013 01/08/2014 GBS (group B Streptococcus msea (more content not included)... Normal [facility] Dipak 07-19-2024 GIOVANA Telephone (ENDOIN) KATHLEEN VILLA ([id number]) 1995 F CHT Date Time Provider Department 07/19/24 JESSICA GUERRERO During your visit today, we recorded the following information about you: Lisa Aguilar LPN 07/19/2024 3:45 PM Signed Jessica Guerrero APRN.FRIEDA Ashby She was able to get upgraded pump recently. I am sending her to [employer] and [employer] to start. She will need new supplies from [facility] including Guardian 4 CGM and supplies for [employer] 780 G. Jessica Guerrero APRN.PRE PAROLE COUNSELING AIDE Lisa Aguilar LPN 07/24/2024 2:00 PM Signed [facility] form for CGM /Pump completed and signed [...] Date Reviewed: 07/19/2024 Reviewed by: Jessica Guerrero APRN.PRE PAROLE COUNSELING AIDE - Fully Assessed Prescriptions as of 07/30/2024 [...] Units subcutaneously every 24 hours. 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 gonorrhoeae rRNA DANIEL+probe Ql (Unsp spec) Negative Normal Negative for Neisseria gonorrhoeae by amplification [facility] Comment on above: Order Comment: Speci men Type: SWABOrdering Facility: [facility] Address: [address] [place] [address] Performed By: #### T RVAMP, 71040-3 ####[facility] LABCLIA [id number] [place] [address] [place] CNOVon 07-10-2024 CNOV Office Visit (OBGYWM ) KATHLEEN VILLA ([id number]) 1995 F CHT Date Time Provider Department [...] L2 SAB0 IAB0 Ectopic0 Multiple0 Live Births2 Library Historian History LMP: 11/26/2022 (Exact Date), Having periods Age at Menarche: 12 Age at First : Age at Menopause: Library Historian History Comments: Sexual Activity: Yes; Male Contraception: [...] discussed with the Patient or Patient's Authorized Ammonia Refrigeration Technician. As applicable, any other physician, advance practice provider, medical student, or other health professional student that will be observing or involved in the sensitive examination for educational or training purposes was discussed with the Patient or Authorized Ammonia Refrigeration Technician. The Patient or Authorized Ammonia Refrigeration Technician has agreed to proceed with the sensitive [...] external genitalia normal, normal Bartholin's glands, urethra, Leighton's glands, no vulvar lesions, no cervical lesions, [...] Comment: Speci men Type: BLOOD SPECIMENOrdering Facility: [facility] Address: [address] [place] [address] Performed By: #### 1 1011-4 ####[facility] LABIA [id number] [place] [address] [place] HIGH RISK HUMAN PAPILLOMA DERECK (HPV), PCR FOR DETECTION AND GENOTYPINGon 07-10-2024 HPV 16 Ag Ql (Unsp spec) Not detected Normal Not detected [facility] Comment on above: Order Comment: Speci men Type: FLUID SPECIMENOrdering Facility: [facility] Address: [address] [place] [address] Performed By: #### H PVHRT ####[facility] [id number] [place] [address] [place] HPV 18 Ag Ql (Unsp spec) Not detected Normal Not detected [facility] Comment on above: Order Comment: Speci men Type: FLUID SPECIMENOrdering Facility: [facility] Address: [address] [place] [address] Performed By: #### H PVHRT ####[facility] [id number] [place] [address] [place] HPV 31+33+35+39+45+51+52+5 6+58+59+66+68 DNA DANIEL+probe Ql (Cvx) Not detected Normal Not detected [facility] Comment on above: Order Comment: Speci men Type: FLUID SPECIMENOrdering Facility: [facility] Address: [address] [place] [address] Result Comment: High Risk HPV Other Type includes HPV types 31, 33, 35, 39, 45, 51, 52, 56, 58, 59, 66 and 68. Performed By: #### H PVHRT ####[facility] LABCLIA [id number] [place] [address] [place] HIV 1+2 Ab IA Qlon 4 HIV 1 and 2 Ab IA.rapid Nom (S/P/Bld) Normal [facility] Comment on above: Order Comment: Speci men Type: BLOOD SPECIMENOrdering Facility: [facility] Address: [address] [place] [address] Result Comment: Test not indicated. Performed By: #### 3 1201-7, 05193-3 ####[facility] LABCLIA [id number] [place] [address] [place] HIV 1+2 Ab+HIV1 p24 Ag IA Ql Non-Reactive Normal Nonreactive [facility] Comment on above: Order Comment: Speci men Type: BLOOD SPECIMENOrdering Facility: [facility] Address: [address] [place] [address] Performed By: #### 3 1201-7, 54297-2 ####[facility] LABCLIA [id number] [place] [address] [place] HIV immunoassay testing algorithm interpretation (S/P/Bld) [Interp] Normal [facility] Comment on above: Order Comment: Speci men Type: BLOOD SPECIMENOrdering Facility: [facility] Address: [address] [place] [address] Result Comment: No e vidence of HIV-1 or HIV-2 infection. Should recent infection be suspected, repeat testing may be considered 2-3 weeks after this draw. [place] Rev. Code 3701.243(E): This information has been [...] or diagnoses. Performed By: #### 3 1201-7, 31902-4 ####[facility] LABCLIA [id number] [address] [address] [place] PAP TESTon 07-10-2024 ADEQUACY Normal [facility] Comment on above: Order Comment: Speci men Type: FLUID SPECIMENOrdering Facility: [facility] Address: [address] [place] [address] Result Comment: Sati sfactory for interpretation. Limited cellularity. Performed By: #### L [id number] ####[facility] LABCLIA [id number] [place] [address] [place] CASE REPORT Normal [facility] Comment on above: Order Comment: Speci men Type: FLUID SPECIMENOrdering Facility: [facility] Address: [address] [place] [address] Result Comment: Gyne cologic Cytology Report Case: [id number] Authorizing Provider: Jason Paredes MD Collected: 07/10/2024 12:13 PM Ordering Location: OB/Gynecology Received: 07/10/2024 03:39 PM First Screen: Aramouni, Heather, CT, ASCP Specimen: Pap Test, ThinPrep, Cervix Performed By: #### L [id number] ####[facility] LABCLIA [id number] [place] [id number] [place] CLINICAL HISTORY, CYTOLOGY, CELEBRITY CHEF ENTREPRENEUR MEDIA PERSONALITY Routine Exam Normal [facility] Comment on above: Order Comment: Speci men Type: FLUID SPECIMENOrdering Facility: [facility] Address: [address] [place] [address] Performed By: #### L [id number] ####[facility] LABCLIA [id number] [place] [address] [place] FINAL PERFORMING LAB Normal [facility] Comment on above: Order Comment: Speci men Type: FLUID SPECIMENOrdering Facility: [facility] Address: [address] [place] [address] Result Comment: Tech nical component, carnallite plant operator screening performed at [facility], [address] [place] [place] [id number] CLIA# [id number] Diagnostic interpretation performed at [facility], [address] [place] [address] CLIA# [id number] Information Technology Officer: Brennen Holloway M.D. Performed By: #### L [id number] ####[facility] LABCLIA [id number] [place] [address] [place] INTERPRETATION, CYTOLOGY, CELEBRITY CHEF ENTREPRENEUR MEDIA PERSONALITY Normal [facility] Comment on above: Order Comment: Speci men Type: FLUID SPECIMENOrdering Facility: [facility] Address: [address] [place] [address] Result Comment: Nega tive for intraepithelial lesion or malignancy. Performed By: #### L [id number] ####[facility] LABCLIA [id number] [place] [address] [place] [facility] 06/04/2024 Normal [facility] Comment on above: Order Comment: Speci men Type: FLUID SPECIMENOrdering Facility: [facility] Address: [address] [place] [address] Performed By: #### L [id number] ####[facility] LABCLIA [id number] [place] [address] [place] PAP DISCLAIMER COMMENT The Pap Smear is a screening test for cervical cancer. False negative results occur with all screening tests, emphasizing the need for rescreening at recommended intervals, and clinical correlation. Normal [facility] Comment on above: Order Comment: Speci men Type: FLUID SPECIMENOrdering Facility: [facility] Address: [address] [place] [address] Performed By: #### L [id number] ####[facility] LABCLIA [id number] [place] [id number] [place] PAP COMPTOMETRIST COMMENT This specimen has be en analyzed by the [employer] Imaging System, an automated imaging and review system, which assists the laboratory in evaluating cells on ThinPrep Pap tests. Following automated imaging, selected cazares from every slide are reviewed by a carnallite plant operator. Normal [facility] Comment on above: Order Comment: Speci men Type: FLUID SPECIMENOrdering Facility: [facility] Address: [address] [place] [address] Performed By: #### L [id number] ####[facility] [id number] [place] [address] [place] Reagin and Treponema pallidu m IgG and IgM [Interp]on 07-10-2024 T. pallidum IgG+IgM IA Ql (S) Non-Reactive Normal Nonreactive [facility] Comment on above: Order Comment: Speci men Type: BLOOD SPECIMENOrdering Facility: [facility] Address: [address] [place] [address] Performed By: #### 3 1201-7, 36429-9 ####[facility] [id number] [place] [address] [place] Reagin+T pallidum IgG+IgM Se rPl-Impon 07-10-2024 Reagin and Treponema pallidum IgG and IgM [Interp] Cannot exclude recent Treponemal infection if specimen collected within 7-10 days after appearance of suspect lesions or 2-3 weeks after an exposure. Clinical correlation is required. Normal [facility] Comment on above: Order Comment: Speci men Type: BLOOD SPECIMENOrdering Facility: [facility] Address: [address] [place] [address] Performed By: #### 3 1201-7, 18569-9 ####[facility] [id number] [place] [id number] [place] TRICHOMONAS VAGINALIS NAATon 07-10-2024 T. vaginalis DNA DANIEL+probe Ql (Unsp spec) Negative Normal Negative for Trichomonas vaginalis by amplification [facility] Comment on above: Order Comment: Speci men Type: SWABOrdering Facility: [facility] Address: [address] [place] [address] Performed By: #### T RVAMP, 76258-7 ####[facility] [id number] [place] [address] [place] TSH SerPl-aCncon 07-10-2024 TSH Qn 1.140 m[IU]/L Normal 0.270-4.200 [facility] Comment on above: Order Comment: Speci men Type: BLOOD SPECIMENOrdering Facility: [facility] Address: [address] [place] [address] Result Comment: If t he patient is , TSH reference range varies by gestational period: First Trimester (weeks 9-12): 0.180-2.990 mIU/L Second Trimester: 0.110-3.980 mIU/L Third Trimester: 0.480-4.710 mIU/L Kelvin Swain et al. A Practical Approach for the Verifications and Determination of Site- and Trimester-Specific Reference Intervals for Thyroid Function tests in . Thyroid, 2019:29:3:412-420. Dangelo Raya, et al. 2017 Guidelines of the [place] [employer] for the Diagnosis and Management of Thyroid Disease during and the . Thyroid, 2017:27:3:315-389. Performed By: #### 3 016-3 ####[facility] [id number] [place] [address] [place] Dipak 06-24-2024 CNPN Telephone (INTMIN) KATHLEEN VILLA ([id number]) 1995 F CHT Date Time Provider Department [...] Insulin Lispro. [facility] Discussed with provider in office Please advise Jessica Guerrero APRN.FRIEDA 06/25/2024 1:58 PM Signed I recommend she sees nurse educator to review pump options- I am [...] to patient via phone. Patient verbalizes understanding. LetMeGo message sent for patients reference as requested. [...] every 24 hours.Disp: 38.7 mLRfl: 1 Insulin [place], Disposable, (PEN NEEDLE) 32 gauge x 5/32Inject [...] Units subcutaneously every 24 hours. - Insulin [place], Disposable, (PEN NEEDLE) 32 gauge x 5/32 [...] TEST STRIPS) (more content not included)... Normal [facility] 06-17-2024 CNPN Telephone (QAMAR) KATHLEEN VILLA ([id number]) 1995 F T Date Time Provider Department [...] (post-traumatic stress disorder) [F43.10] 12/25/2012 DVT prophylaxis [PPX0499] 12/25/2012 09/04/2013 DISPOSITION AND FOLLOW-UP [V999.01] 12/25/2012 09/04/2013 HTN (hypertension) [I10] Hypertension in , antepartum [O16.9] 09/19/2013 01/08/2014 GBS (group B Streptococcus carrier), +RV cultur*11/11/2013 04/16/2014 [Z34.90] 11/22/2013 04/16/2014 Diabetes mellitus in (HCC) [O24.919] 12/25/2013 04/16/2014 Diabetic ketoacidosis without coma associated w*01/08/2014 02/04/2023 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] 01/08/2014 DVT prophylaxis [MIN2288] 02/25/2014 04/16/2014 care and examination [Z39.2] 02/25/2014 [...] No growth in 5 days. Normal [facility] Comment on above: Performed By: #### M 200.1000 ####[facility] [address] [place], [address] Basic Metabolic Profile (BMP )on 06-11-2024 BUN/CRE 9.8 RATIO Low 06-16 [facility] Comment on above: Performed By: #### L 500.2500 ####[facility] [address] [place], [address] CA,Total 8.7 mg/dL Normal 8.5-10.1 [facility] Comment on above: Performed By: #### L 500.2500 ####[facility] [address] [place], [address] Chloride [Moles/Vol] 107 mmol/L Normal 98-107 [facility] Comment on above: Performed By: #### L 500.2500 ####[facility] [address] [place], [address] CO2 [Moles/Vol] 27.0 mmol/L Normal 21.0-32.0 [facility] Comment on above: Performed By: #### L 500.2500 ####[facility] [address] [place], [address] Creatinine [Mass/Vol] 0.82 mg/dL Normal 0.55-1.02 [facility] Comment on above: Result Comment: The validity of the calculated GFR GFRAA in patients over70 years has not been determined. Clinical correlation isessential. Performed By: #### L 500.2500 ####[facility] [address] [place], [address] ECRCL 105.79 ml/min Normal [facility] Comment on above: Performed By: #### L 500.2500 ####[facility] [address] [place] [id number] EST GFR - AA 106 mL/min Normal >60 [facility] Comment on above: Result Comment: Afri can Ecu[place]orean GFR Calc Performed By: #### L 500.2500 ####[facility] [address] [place] [address] GAP 6 Normal 5-15 [facility] Comment on above: Performed By: #### L 500.2500 ####[facility] [address] [place] [address] GFR/1.73 sq M.predicted among non-blacks MDRD (S/P/Bld) [Vol rate/Area] 87 mL/min/{1.73_m2} Normal >60 [facility] Comment on above: Result Comment: Non- GFR Calc Performed By: #### L 500.2500 ####[facility] [address] [place] [id number] Glucose [Mass/Vol] 194 mg/dL High 74-106 [facility] Comment on above: Result Comment: Fast ing Glucose result greater than or equal to 126 mg/dLsuggests DIABETES MELLITUS per A.D.A. criteria. Performed By: #### L 500.2500 ####[facility] [address] [place], [address] Potassium [Moles/Vol] 3.3 mmol/L Low 3.5-5.1 [facility] Comment on above: Performed By: #### L 500.2500 ####[facility] [address] [place], [address] Sodium [Moles/Vol] 140 mmol/L Normal 136-145 [facility] Comment on above: Performed By: #### L 500.2500 ####[facility] [address] [place], [address] Urea nitrogen [Mass/Vol] 8 mg/dL Normal - [facility] Comment on above: Performed By: #### L 500.2500 ####[facility] [address] [place], [address] Bedside Glucoseon 06-11-2024 FINGERSTICK GLU 116 mg/dL High 74-106 [facility] Comment on above: Result Comment: Dr Ej foreman FollowedMANAGEMENT OF PATIENT CARE PER NURSING PROTOCOL Performed By: #### L 501.080 ####[facility] [address] [place], [address] FINGERSTICK GLU 180 mg/dL High 74-106 [facility] Comment on above: Result Comment: EDGAR GEMENT OF PATIENT CARE PER NURSING PROTOCOL Performed By: #### L 501.080 ####[facility] [address] [place], [address] Discharge Instructionon 05-28 Discharge Instruction Normal [facility] Acetone Serumon 06-10-2024 ACETONE SERUM Negative Normal NEG [facility] Comment on above: Performed By: #### L 501.6900 ####[facility] [address] [place], [address] Basic Metabolic Profile (BMP )on 06-10-2024 BUN Normal - [facility] Comment on above: Result Comment: Mary sanchez via OM: Ordered Performed By: #### L 500.2500 ####[facility] [address] [place], [address] BUN/CRE Normal 06-16 [facility] Comment on above: Result Comment: Canc elled via OM: MD Ordered Performed By: #### L 500.2500 ####[facility] [address] [place], [address] CA,Total Normal 8.5-10.1 [facility] Comment on above: Result Comment: Canc elled via OM: MD Ordered Performed By: #### L 500.2500 ####[facility] [address] [place], [address] CL Normal 98-107 [facility] Comment on above: Result Comment: Canc elled via OM: MD Ordered Performed By: #### L 500.2500 ####[facility] [address] [place], [address] CO2 Normal 21.0-32.0 [facility] Comment on above: Result Comment: Canc elled via OM: MD Ordered Performed By: #### L 500.2500 ####[facility] [address] [place], [address] CREAT,SERUM Normal 0.55-1.02 [facility] Comment on above: Result Comment: Canc elled via OM: MD Ordered Performed By: #### L 500.2500 ####[facility] [address] [place], [address] EST GFR Normal >60 [facility] Comment on above: Result Comment: Canc elled via OM: MD Ordered Performed By: #### L 500.2500 ####[facility] [address] [place], [address] EST GFR - AA Normal >60 [facility] Comment on above: Result Comment: Canc elled via OM: MD Ordered Performed By: #### L 500.2500 ####[facility] [address] [place], [address] GAP Normal 5-15 [facility] Comment on above: Result Comment: Canc elled via OM: MD Ordered Performed By: #### L 500.2500 ####[facility] [address] [place], [address] GLU Normal 74-106 [facility] Comment on above: Result Comment: Canc elled via OM: MD Ordered Performed By: #### L 500.2500 ####[facility] [address] [place], [address] Potassium Normal 3.5-5.1 [facility] Comment on above: Result Comment: Canc elled via OM: MD Ordered Performed By: #### L 500.2500 ####[facility] [address] [place], [address] Basic Metabolic Profile (BMP) Normal 136-145 [facility] Comment on above: Result Comment: Canc elled via OM: MD Ordered Performed By: #### L 500.2500 ####[facility] [address] [place], [address] BUN/CRE 9.8 RATIO Low 10-20 [facility] Comment on above: Performed By: #### L 500.2500 ####[facility] [address] [place], [address] CA,Total 7.9 mg/dL Low 8.5-10.1 [facility] Comment on above: Performed By: #### L 500.2500 ####[facility] [address] [place], [address] Chloride [Moles/Vol] 107 mmol/L Normal 98-107 [facility] Comment on above: Performed By: #### L 500.2500 ####[facility] [address] [place], [address] CO2 [Moles/Vol] 25.0 mmol/L Normal 21.0-32.0 [facility] Comment on above: Performed By: #### L 500.2500 ####[facility] [address] [place], [address] Creatinine [Mass/Vol] 0.61 mg/dL Normal 0.55-1.02 [facility] Comment on above: Result Comment: The validity of the calculated GFR GFRAA in patients over70 years has not been determined. Clinical correlation isessential. Performed By: #### L 500.2500 ####[facility] [address] [place], [address] ECRCL 142.21 ml/min Normal [facility] Comment on above: Performed By: #### L 500.2500 ####[facility] [address] [place], [address] EST GFR - AA 148 mL/min Normal >60 [facility] Comment on above: Result Comment: Afri can [place]cu[place] GFR Calc Performed By: #### L 500.2500 ####[facility] [address] [place], [address] GAP 10 Normal 5-15 [facility] Comment on above: Performed By: #### L 500.2500 ####[facility] [address] [place], [address] GFR/1.73 sq M.predicted among non-blacks MDRD (S/P/Bld) [Vol rate/Area] 123 mL/min/{1.73_m2} Normal >60 [facility] Comment on above: Result Comment: Non- GFR Calc Performed By: #### L 500.2500 ####[facility] [address] [place], [address] Glucose [Mass/Vol] 89 mg/dL Normal 74-106 [facility] Comment on above: Performed By: #### L 500.2500 ####[facility] [address] [place], [address] Potassium [Moles/Vol] 3.0 mmol/L Low 3.5-5.1 [facility] Comment on above: Performed By: #### L 500.2500 ####[facility] [address] [place], [address] Sodium [Moles/Vol] 141 mmol/L Normal 136-145 [facility] Comment on above: Performed By: #### L 500.2500 ####[facility] [address] [place], [address] Urea nitrogen [Mass/Vol] 6 mg/dL Low 7-18 [facility] Comment on above: Performed By: #### L 500.2500 ####[facility] [address] [place], [address] BUN/CRE 11.2 RATIO Normal 10-20 [facility] Comment on above: Performed By: #### L 501.5200, L500.2500, L100.0100, L501.2300 ####[facility] [address] [place], [address] [place],Total 8.0 mg/dL Low 8.5-10.1 [facility] Comment on above: Performed By: #### L 501.5200, L500.2500, L100.0100, L501.2300 ####[facility] [address] [place], [address] Chloride [Moles/Vol] 107 mmol/L Normal 98-107 [facility] Comment on above: Performed By: #### L 501.5200, L500.2500, L100.0100, L501.2300 ####[facility] [address] [place], [address] CO2 [Moles/Vol] 24.0 mmol/L Normal 21.0-32.0 [facility] Comment on above: Performed By: #### L 501.5200, L500.2500, L100.0100, L501.2300 ####[facility] [address] [place], [address] Creatinine [Mass/Vol] 0.63 mg/dL Normal 0.55-1.02 [facility] Comment on above: Result Comment: The validity of the calculated GFR GFRAA in patients over70 years has not been determined. Clinical correlation isessential. Performed By: #### L 501.5200, L500.2500, L100.0100, L501.2300 ####[facility] [address] [place], [address] ECRCL 137.70 ml/min Normal [facility] Comment on above: Performed By: #### L 501.5200, L500.2500, L100.0100, L501.2300 ####[facility] [address] [place], [address] EST GFR - AA 144 mL/min Normal >60 [facility] Comment on above: Result Comment: Afri can [place]cu[place]orean GFR Calc Performed By: #### L 501.5200, L500.2500, L100.0100, L501.2300 ####[facility] [address] [place], [address] GAP 7 Normal 5-15 [facility] Comment on above: Performed By: #### L 501.5200, L500.2500, L100.0100, L501.2300 ####[facility] [address] [place], [address] GFR/1.73 sq M.predicted among non-blacks MDRD (S/P/Bld) [Vol rate/Area] 119 mL/min/{1.73_m2} Normal >60 [facility] Comment on above: Result Comment: Non- GFR Calc Performed By: #### L 501.5200, L500.2500, L100.0100, L501.2300 ####[facility] [address] [place], [address] Glucose [Mass/Vol] 127 mg/dL High 74-106 [facility] Comment on above: Result Comment: Fast ing Glucose result greater than or equal to 126 mg/dLsuggests DIABETES MELLITUS per A.D.A. criteria. Performed By: #### L 501.5200, L500.2500, L100.0100, L501.2300 ####[facility] [address] [place], [address] Potassium [Moles/Vol] 3.7 mmol/L Normal 3.5-5.1 [facility] Comment on above: Performed By: #### L 501.5200, L500.2500, L100.0100, L501.2300 ####[facility] [address] [place], [address] Sodium [Moles/Vol] 138 mmol/L Normal 136-145 [facility] Comment on above: Performed By: #### L 501.5200, L500.2500, L100.0100, L501.2300 ####[facility] [address] [place], [address] Urea nitrogen [Mass/Vol] 7 mg/dL Normal 7-18 [facility] Comment on above: Performed By: #### L 501.5200, L500.2500, L100.0100, L501.2300 ####[facility] [address] [place], [address] BUN/CRE 11.2 RATIO Normal 10-20 [facility] Comment on above: Performed By: #### L 500.2500 ####[facility] [address] [place], [address] CA,Total 7.9 mg/dL Low 8.5-10.1 [facility] Comment on above: Performed By: #### L 500.2500 ####[facility] [address] [place], [address] Chloride [Moles/Vol] 107 mmol/L Normal 98-107 [facility] Comment on above: Performed By: #### L 500.2500 ####[facility] [address] [place], [address] CO2 [Moles/Vol] 25.0 mmol/L Normal 21.0-32.0 [facility] Comment on above: Performed By: #### L 500.2500 ####[facility] [address] [place], [address] Creatinine [Mass/Vol] 0.81 mg/dL Normal 0.55-1.02 [facility] Comment on above: Result Comment: The validity of the calculated GFR GFRAA in patients over70 years has not been determined. Clinical correlation isessential. Performed By: #### L 500.2500 ####[facility] [address] [place], [address] ECRCL 107.10 ml/min Normal [facility] Comment on above: Performed By: #### L 500.2500 ####[facility] [address] [place], [address] EST GFR - AA 108 mL/min Normal >60 [facility] Comment on above: Result Comment: Afri can Ecuadorean GFR Calc Performed By: #### L 500.2500 ####[facility] [address] [place], [address] GAP 7 Normal 5-15 [facility] Comment on above: Performed By: #### L 500.2500 ####[facility] [address] [place], [address] GFR/1.73 sq M.predicted among non-blacks MDRD (S/P/Bld) [Vol rate/Area] 89 mL/min/{1.73_m2} Normal >60 [facility] Comment on above: Result Comment: Non- GFR Calc Performed By: #### L 500.2500 ####[facility] [address] [place], [address] Glucose [Mass/Vol] 185 mg/dL High 74-106 [facility] Comment on above: Result Comment: Fast ing Glucose result greater than or equal to 126 mg/dLsuggests DIABETES MELLITUS per A.D.A. criteria. Performed By: #### L 500.2500 ####[facility] [address] [place], [address] Potassium [Moles/Vol] 2.9 mmol/L Low 3.5-5.1 [facility] Comment on above: Performed By: #### L 500.2500 ####[facility] [address] [place], [address] Sodium [Moles/Vol] 140 mmol/L Normal 136-145 [facility] Comment on above: Performed By: #### L 500.2500 ####[facility] [address] [place], [address] Urea nitrogen [Mass/Vol] 9 mg/dL Normal 7-18 [facility] Comment on above: Performed By: #### L 500.2500 ####[facility] [address] [place], [address] Bedside Glucoseon 06-10-2024 FINGERSTICK GLU 122 mg/dL High 74-106 [facility] Comment on above: Result Comment: EDGAR GEMENT OF PATIENT CARE PER NURSING PROTOCOL Performed By: #### L 501.080 ####[facility] [address] [place], [address] FINGERSTICK GLU 120 mg/dL High -106 [facility] Comment on above: Result Comment: EDGAR GEMENT OF PATIENT CARE PER NURSING PROTOCOL Performed By: #### L 501.080 ####[facility] [address] [place], [address] FINGERSTICK GLU 158 mg/dL High 74-106 [facility] Comment on above: Result Comment: EDGAR GEMENT OF PATIENT CARE PER NURSING PROTOCOL Performed By: #### L 501.080 ####[facility] [address] [place], [address] FINGERSTICK GLU 93 mg/dL Normal 74-106 [facility] Comment on above: Result Comment: EDGAR GEMENT OF PATIENT CARE PER NURSING PROTOCOL Performed By: #### L 501.080 ####[facility] [address] [place], [address] FINGERSTICK GLU 85 mg/dL Normal 74-106 [facility] Comment on above: Result Comment: EDGAR GEMENT OF PATIENT CARE PER NURSING PROTOCOL Performed By: #### L 501.080 ####[facility] [address] [place], [address] FINGERSTICK GLU 67 mg/dL Low 74-106 [facility] Comment on above: Result Comment: EDGAR GEMENT OF PATIENT CARE PER NURSING PROTOCOL Performed By: #### L 501.080 ####[facility] [address] [place], [address] FINGERSTICK GLU 64 mg/dL Low 74-106 [facility] Comment on above: Result Comment: EDGAR GEMENT OF PATIENT CARE PER NURSING PROTOCOL Performed By: #### L 501.080 ####[facility] [address] [place], [address] FINGERSTICK GLU 74 mg/dL Normal 74-106 [facility] Comment on above: Result Comment: EDGAR GEMENT OF PATIENT CARE PER NURSING PROTOCOL Performed By: #### L 501.080 ####[facility] [address] [place], [address] FINGERSTICK GLU 124 mg/dL High 74-106 [facility] Comment on above: Result Comment: EDGAR GEMENT OF PATIENT CARE PER NURSING PROTOCOL Performed By: #### L 501.080 ####[facility] [address] [place], [address] FINGERSTICK GLU 146 mg/dL High 74-106 [facility] Comment on above: Result Comment: EDGAR GEMENT OF PATIENT CARE PER NURSING PROTOCOL Performed By: #### L 501.080 ####[facility] [address] [place], [address] FINGERSTICK GLU 122 mg/dL High 74-106 [facility] Comment on above: Result Comment: EDGAR GEMENT OF PATIENT CARE PER NURSING PROTOCOL Performed By: #### L 501.080 ####[facility] [address] [place], [address] FINGERSTICK GLU 286 mg/dL High -106 [facility] Comment on above: Result Comment: EDGAR GEMENT OF PATIENT CARE PER NURSING PROTOCOL Performed By: #### L 501.080 ####[facility] [address] [place], [address] FINGERSTICK GLU 233 mg/dL High 74-106 [facility] Comment on above: Result Comment: EDGAR GEMENT OF PATIENT CARE PER NURSING PROTOCOL Performed By: #### L 501.080 ####[facility] [address] [place], [address] FINGERSTICK GLU 194 mg/dL High -106 [facility] Comment on above: Result Comment: EDGAR GEMENT OF PATIENT CARE PER NURSING PROTOCOL Performed By: #### L 501.080 ####[facility] [address] [place], [address] FINGERSTICK GLU 195 mg/dL High 74-106 [facility] Comment on above: Result Comment: EDGAR GEMENT OF PATIENT CARE PER NURSING PROTOCOL Performed By: #### L 501.080 ####[facility] [address] [place], [address] CBC W/Diff, Automatedon 10-1 Absolute Lymph 2.08 X10 3/uL Normal 0.83-4.51 [facility] Comment on above: Performed By: #### L 501.5200, L500.2500, L100.0100, L501.2300 ####[facility] [address] [place], [address] Absolute Neut 11.6 X10 3/uL High 2.0-7.7 [facility] Comment on above: Performed By: #### L 501.5200, L500.2500, L100.0100, L501.2300 ####[facility] [address] [place], [address] Basophils/100 WBC (Bld) 0.3 % Normal 0-1 [facility] Comment on above: Performed By: #### L 501.5200, L500.2500, L100.0100, L501.2300 ####[facility] [address] [place], [address] Eosinophils/100 WBC (Bld) 0.1 % Normal 0-5 [facility] Comment on above: Performed By: #### L 501.5200, L500.2500, L100.0100, L501.2300 ####[facility] [address] [place], [address] Erythrocyte distribution width (RBC) [Ratio] 12.6 % Normal 11.6-14.6 [facility] Comment on above: Performed By: #### L 501.5200, L500.2500, L100.0100, L501.2300 ####[facility] [address] [place], [address] Hematocrit (Bld) [Volume fraction] 36.7 % Low 37-47 [facility] Comment on above: Performed By: #### L 501.5200, L500.2500, L100.0100, L501.2300 ####[facility] [address] [place], [address] Hemoglobin (Bld) [Mass/Vol] 12.2 g/dL Normal 12.0-15.0 [facility] Comment on above: Performed By: #### L 501.5200, L500.2500, L100.0100, L501.2300 ####[facility] [address] [place], [address] IG% 1.100 High 0.0-0.9 [facility] Comment on above: Result Comment: IG% - Immature Granulocytes (promyelocytes, myelocytes andmetamyelocytes) > 1% indicates that a LEFT SHIFT is Present. Performed By: #### L 501.5200, L500.2500, L100.0100, L501.2300 ####[facility] [address] [place], [address] Lymphocytes/100 WBC (Bld) 14.1 % Low 19-41 [facility] Comment on above: Performed By: #### L 501.5200, L500.2500, L100.0100, L501.2300 ####[facility] [address] [place], [address] MCH (RBC) [Entitic mass] 29.5 pg Normal 27.0-32.0 [facility] Comment on above: Performed By: #### L 501.5200, L500.2500, L100.0100, L501.2300 ####[facility] [address] [place], [address] MCHC (RBC) [Mass/Vol] 33.2 g/dL Normal 32-36 [facility] Comment on above: Performed By: #### L 501.5200, L500.2500, L100.0100, L501.2300 ####[facility] [address] [place], [address] MCV (RBC) [Entitic vol] 88.9 fL Normal 81-99 [facility] Comment on above: Performed By: #### L 501.5200, L500.2500, L100.0100, L501.2300 ####[facility] [address] [place], [address] Monocytes/100 WBC (Bld) 5.9 % Normal 0-10 [facility] Comment on above: Performed By: #### L 501.5200, L500.2500, L100.0100, L501.2300 ####[facility] [address] [place], [address] Neutrophils/100 WBC (Bld) 78.5 % High 47-70 [facility] Comment on above: Performed By: #### L 501.5200, L500.2500, L100.0100, L501.2300 ####[facility] [address] [place], [address] Nucleated RBC (Bld) [#/Vol] 0 10*3/uL Normal 0-5 [facility] Comment on above: Performed By: #### L 501.5200, L500.2500, L100.0100, L501.2300 ####[facility] [address] [place], [address] Platelet mean volume (Bld) [Entitic vol] 11.8 fL Normal 6.2-12.0 [facility] Comment on above: Performed By: #### L 501.5200, L500.2500, L100.0100, L501.2300 ####[facility] [address] [place], [address] Platelets (Bld) [#/Vol] 187 10*3/uL Normal 150-450 [facility] Comment on above: Performed By: #### L 501.5200, L500.2500, L100.0100, L501.2300 ####[facility] [address] [place], [address] RBC (Bld) [#/Vol] 4.13 10*6/uL Low 4.2-5.4 [facility] Comment on above: Performed By: #### L 501.5200, L500.2500, L100.0100, L501.2300 ####[facility] [address] [place], [address] RDW SD 41.1 fl Normal 35.1-43.9 [facility] Comment on above: Performed By: #### L 501.5200, L500.2500, L100.0100, L501.2300 ####[facility] [address] [place], [address] WBC (Bld) [#/Vol] 14.8 10*3/uL High 4.4-11.0 [facility] Comment on above: Performed By: #### L 501.5200, L500.2500, L100.0100, L501.2300 ####[facility] [address] [place], [address] Magnesiumon 06-10-2024 Magnesium [Mass/Vol] 2.2 mg/dL Normal 1.6-2.6 [facility] Comment on above: Performed By: #### L 501.5200, L500.2500, L100.0100, L501.2300 ####[facility] [address] [place], [address] Phosphoruson 06-10-2024 Phosphate [Mass/Vol] 2.3 mg/dL Low 2.5-4.9 [facility] Comment on above: Performed By: #### L 501.2300 ####[facility] [address] [place], [address] Phosphate [Mass/Vol] 1.8 mg/dL Low 2.5-4.9 [facility] Comment on above: Performed By: #### L 501.5200, L500.2500, L100.0100, L501.2300 ####[facility] [address] [place], [address] Acetone Serumon 06-09-2024 ACETONE SERUM LARGE Abnormal NEG [facility] Comment on above: Performed By: #### L 501.6900 ####[facility] [address] [place], [address] Basic Metabolic Profile (BMP )on 06-09-2024 BUN/CRE 12.1 RATIO Normal 10-20 [facility] Comment on above: Performed By: #### L 500.2500 ####[facility] [address] [place], [address] CA,Total 8.0 mg/dL Low 8.5-10.1 [facility] Comment on above: Performed By: #### L 500.2500 ####[facility] [address] [place], [address] Chloride [Moles/Vol] 103 mmol/L Normal 98-107 [facility] Comment on above: Performed By: #### L 500.2500 ####[facility] [address] [place], [address] CO2 [Moles/Vol] 21.0 mmol/L Normal 21.0-32.0 [facility] Comment on above: Performed By: #### L 500.2500 ####[facility] [address] [place], [address] Creatinine [Mass/Vol] 0.74 mg/dL Normal 0.55-1.02 [facility] Comment on above: Result Comment: The validity of the calculated GFR GFRAA in patients over70 years has not been determined. Clinical correlation isessential. Performed By: #### L 500.2500 ####[facility] [address] [place], [address] ECRCL 117.23 ml/min Normal [facility] Comment on above: Performed By: #### L 500.2500 ####[facility] [address] [place], [address] EST GFR - AA 118 mL/min Normal >60 [facility] Comment on above: Result Comment: Afri can Ecuadorean GFR Calc Performed By: #### L 500.2500 ####[facility] [address] [place], [address] GAP 12 Normal 5-15 [facility] Comment on above: Performed By: #### L 500.2500 ####[facility] [address] [place], [address] GFR/1.73 sq M.predicted among non-blacks MDRD (S/P/Bld) [Vol rate/Area] 98 mL/min/{1.73_m2} Normal >60 [facility] Comment on above: Result Comment: Non- GFR Calc Performed By: #### L 500.2500 ####[facility] [address] [place], [address] Glucose [Mass/Vol] 351 mg/dL High 74-106 [facility] Comment on above: Result Comment: Gluc ose result greater than or equal to 200 mg/dLsuggests DIABETES MELLITUS per A.D.A. criteria. Performed By: #### L 500.2500 ####[facility] [address] [place], [address] Potassium [Moles/Vol] 3.4 mmol/L Low 3.5-5.1 [facility] Comment on above: Performed By: #### L 500.2500 ####[facility] [address] [place], [address] Sodium [Moles/Vol] 136 mmol/L Normal 136-145 [facility] Comment on above: Performed By: #### L 500.2500 ####[facility] [address] [place], [address] Urea nitrogen [Mass/Vol] 9 mg/dL Normal 7-18 [facility] Comment on above: Performed By: #### L 500.2500 ####[facility] [address] [place], [address] BUN Normal 7-18 [facility] Comment on above: Result Comment: Canc elled via OM: MD Ordered Performed By: #### L 500.2500 ####[facility] [address] [place], [address] Order Comment: Call MD with results STAT BUN/CRE Normal 10-20 [facility] Comment on above: Result Comment: Canc elled via OM: MD Ordered Performed By: #### L 500.2500 ####[facility] [address] [place], [address] Order Comment: Call MD with results STAT CA,Total Normal 8.5-10.1 [facility] Comment on above: Result Comment: Canc elled via OM: MD Ordered Performed By: #### L 500.2500 ####[facility] [address] [place], [address] Order Comment: Call MD with results STAT CL Normal 98-107 [facility] Comment on above: Result Comment: Canc elled via OM: MD Ordered Performed By: #### L 500.2500 ####[facility] [address] [place], [address] Order Comment: Call MD with results STAT CO2 Normal 21.0-32.0 [facility] Comment on above: Result Comment: Canc elled via OM: MD Ordered Performed By: #### L 500.2500 ####[facility] [address] [place], [address] Order Comment: Call MD with results STAT CREAT,SERUM Normal 0.55-1.02 [facility] Comment on above: Result Comment: Canc elled via OM: MD Ordered Performed By: #### L 500.2500 ####[facility] [address] [place], [address] Order Comment: Call MD with results STAT EST GFR Normal >60 [facility] Comment on above: Result Comment: Canc elled via OM: MD Ordered Performed By: #### L 500.2500 ####[facility] [address] [place], [address] Order Comment: Call MD with results STAT EST GFR - AA Normal >60 [facility] Comment on above: Result Comment: Canc elled via OM: MD Ordered Performed By: #### L 500.2500 ####[facility] [address] [place], [address] Order Comment: Call MD with results STAT GAP Normal 5-15 [facility] Comment on above: Result Comment: Canc elled via OM: MD Ordered Performed By: #### L 500.2500 ####[facility] [address] [place], [address] Order Comment: Call MD with results STAT GLU Normal 74-106 [facility] Comment on above: Result Comment: Canc elled via OM: MD Ordered Performed By: #### L 500.2500 ####[facility] [address] [place], [address] Order Comment: Call MD with results STAT Potassium Normal 3.5-5.1 [facility] Comment on above: Result Comment: Canc elled via OM: MD Ordered Performed By: #### L 500.2500 ####[facility] [address] [place], [address] Order Comment: Call MD with results STAT Basic Metabolic Profile (BMP) Normal 136-145 [facility] Comment on above: Result Comment: Canc elled via OM: MD Ordered Performed By: #### L 500.2500 ####[facility] [address] [place], [address] Order Comment: Call MD with results STAT BUN Normal 7-18 [facility] Comment on above: Order Comment: Call MD with results STAT Result Comment: NOT COLLECTED. Performed By: #### L 500.2500 ####[facility] [address] [place], [address] BUN/CRE Normal 10-20 [facility] Comment on above: Order Comment: Call MD with results STAT Result Comment: NOT COLLECTED. Performed By: #### L 500.2500 ####[facility] [address] [place], [address] CA,Total Normal 8.5-10.1 [facility] Comment on above: Order Comment: Call MD with results STAT Result Comment: NOT COLLECTED. Performed By: #### L 500.2500 ####[facility] [address] [place], [address] CL Normal 98-107 [facility] Comment on above: Order Comment: Call MD with results STAT Result Comment: NOT COLLECTED. Performed By: #### L 500.2500 ####[facility] [address] [place], [address] CO2 Normal 21.0-32.0 [facility] Comment on above: Order Comment: Call MD with results STAT Result Comment: NOT COLLECTED. Performed By: #### L 500.2500 ####[facility] [address] [place], [address] CREAT,SERUM Normal 0.55-1.02 [facility] Comment on above: Order Comment: Call MD with results STAT Result Comment: NOT COLLECTED. Performed By: #### L 500.2500 ####[facility] [address] [place], [address] EST GFR Normal >60 [facility] Comment on above: Order Comment: Call MD with results STAT Result Comment: NOT COLLECTED. Performed By: #### L 500.2500 ####[facility] [address] [place], [address] EST GFR - AA Normal >60 [facility] Comment on above: Order Comment: Call MD with results STAT Result Comment: NOT COLLECTED. Performed By: #### L 500.2500 ####[facility] [address] [place], [address] GAP Normal 5-15 [facility] Comment on above: Order Comment: Call MD with results STAT Result Comment: NOT COLLECTED. Performed By: #### L 500.2500 ####[facility] [address] [place], [address] GLU Normal 74-106 [facility] Comment on above: Order Comment: Call MD with results STAT Result Comment: NOT COLLECTED. Performed By: #### L 500.2500 ####[facility] [address] [place], [address] Potassium Normal 3.5-5.1 [facility] Comment on above: Order Comment: Call MD with results STAT Result Comment: NOT COLLECTED. Performed By: #### L 500.2500 ####[facility] [address] [place], [address] Basic Metabolic Profile (BMP) Normal 136-145 [facility] Comment on above: Order Comment: Call MD with results STAT Result Comment: NOT COLLECTED. Performed By: #### L 500.2500 ####[facility] [address] [place], [address] Bedside Glucoseon 06-09-2024 FINGERSTICK GLU 322 mg/dL High 74-106 [facility] Comment on above: Result Comment: EDGAR GEMENT OF PATIENT CARE PER NURSING PROTOCOL Performed By: #### L 501.080 ####[facility] [address] [place], [address] FINGERSTICK GLU 354 mg/dL High 74-106 [facility] Comment on above: Result Comment: EDGAR GEMENT OF PATIENT CARE PER NURSING PROTOCOL Performed By: #### L 501.080 ####[facility] [address] [place], [address] FINGERSTICK GLU 146 mg/dL High 74-106 [facility] Comment on above: Result Comment: EDGAR GEMENT OF PATIENT CARE PER NURSING PROTOCOL Performed By: #### L 501.080 ####[facility] [address] [place], [address] FINGERSTICK GLU 51 mg/dL Low 74-106 [facility] Comment on above: Result Comment: EDGAR GEMENT OF PATIENT CARE PER NURSING PROTOCOL Performed By: #### L 501.080 ####[facility] [address] [place], [address] FINGERSTICK GLU 72 mg/dL Low 74-106 [facility] Comment on above: Result Comment: EDGAR GEMENT OF PATIENT CARE PER NURSING PROTOCOL Performed By: #### L 501.080 ####[facility] [address] [place], [address] FINGERSTICK GLU 127 mg/dL High 74-106 [facility] Comment on above: Result Comment: EDGAR GEMENT OF PATIENT CARE PER NURSING PROTOCOL Performed By: #### L 501.080 ####[facility] [address] [place], [address] FINGERSTICK GLU 128 mg/dL High 74-106 [facility] Comment on above: Result Comment: EDGAR GEMENT OF PATIENT CARE PER NURSING PROTOCOL Performed By: #### L 501.080 ####[facility] [address] [place], [address] FINGERSTICK GLU 135 mg/dL High 74-106 [facility] Comment on above: Result Comment: EDGAR GEMENT OF PATIENT CARE PER NURSING PROTOCOL Performed By: #### L 501.080 ####[facility] [address] [place], [address] FINGERSTICK GLU 127 mg/dL High 74-106 [facility] Comment on above: Result Comment: EDGAR GEMENT OF PATIENT CARE PER NURSING PROTOCOL Performed By: #### L 501.080 ####[facility] [address] [place], [address] FINGERSTICK GLU 131 mg/dL High 74-106 [facility] Comment on above: Result Comment: EDGAR GEMENT OF PATIENT CARE PER NURSING PROTOCOL Performed By: #### L 501.080 ####[facility] [address] [place], [address] FINGERSTICK GLU 136 mg/dL High 74-106 [facility] Comment on above: Result Comment: EDGAR GEMENT OF PATIENT CARE PER NURSING PROTOCOL Performed By: #### L 501.080 ####[facility] [address] [place], [address] FINGERSTICK GLU 170 mg/dL High 74-106 [facility] Comment on above: Result Comment: EDGAR GEMENT OF PATIENT CARE PER NURSING PROTOCOL Performed By: #### L 501.080 ####[facility] [address] [place], [address] FINGERSTICK GLU 206 mg/dL High 74-106 [facility] Comment on above: Result Comment: EDGAR GEMENT OF PATIENT CARE PER NURSING PROTOCOL Performed By: #### L 501.080 ####[facility] [address] [place], [address] CBC W/Diff, Automatedon 10-1 -2023 Absolute Lymph 1.62 X10 3/uL Normal 0.83-4.51 [facility] Comment on above: Performed By: #### L 100.0100, L501.2300 ####[facility] [address] [place], [address] Absolute Neut 14.1 X10 3/uL High 2.0-7.7 [facility] Comment on above: Performed By: #### L 100.0100, L501.2300 ####[facility] [address] [place], [address] Basophils/100 WBC (Bld) 0.2 % Normal 0-1 [facility] Comment on above: Performed By: #### L 100.0100, L501.2300 ####[facility] [address] [place], [address] Eosinophils/100 WBC (Bld) 0.1 % Normal 0-5 [facility] Comment on above: Performed By: #### L 100.0100, L501.2300 ####[facility] [address] [place], [address] Erythrocyte distribution width (RBC) [Ratio] 12.9 % Normal 11.6-14.6 [facility] Comment on above: Performed By: #### L 100.0100, L501.2300 ####[facility] [address] [place], [address] Hematocrit (Bld) [Volume fraction] 34.0 % Low 37-47 [facility] Comment on above: Performed By: #### L 100.0100, L501.2300 ####[facility] [address] [place], [address] Hemoglobin (Bld) [Mass/Vol] 11.1 g/dL Low 12.0-15.0 [facility] Comment on above: Performed By: #### L 100.0100, L501.2300 ####[facility] [address] [place], [address] IG% 0.800 Normal 0.0-0.9 [facility] Comment on above: Result Comment: IG% - Immature Granulocytes (promyelocytes, myelocytes andmetamyelocytes) > 1% indicates that a LEFT SHIFT is Present. Performed By: #### L 100.0100, L501.2300 ####[facility] [address] [place], [address] Lymphocytes/100 WBC (Bld) 9.7 % Low 19-41 [facility] Comment on above: Performed By: #### L 100.0100, L501.2300 ####[facility] [address] [place], [address] MCH (RBC) [Entitic mass] 29.1 pg Normal 27.0-32.0 [facility] Comment on above: Performed By: #### L 100.0100, L501.2300 ####[facility] [address] [place], [address] MCHC (RBC) [Mass/Vol] 32.6 g/dL Normal 32-36 [facility] Comment on above: Performed By: #### L 100.0100, L501.2300 ####[facility] [address] [place], [address] MCV (RBC) [Entitic vol] 89.2 fL Normal 81-99 [facility] Comment on above: Performed By: #### L 100.0100, L501.2300 ####[facility] [address] [place], [address] Monocytes/100 WBC (Bld) 5.1 % Normal 0-10 [facility] Comment on above: Performed By: #### L 100.0100, L501.2300 ####[facility] [address] [place], [address] Neutrophils/100 WBC (Bld) 84.1 % High 47-70 [facility] Comment on above: Performed By: #### L 100.0100, L501.2300 ####[facility] [address] [place], [address] Nucleated RBC (Bld) [#/Vol] 0 10*3/uL Normal 0-5 [facility] Comment on above: Performed By: #### L 100.0100, L501.2300 ####[facility] [address] [place], [address] Platelet mean volume (Bld) [Entitic vol] 12.0 fL Normal 6.2-12.0 [facility] Comment on above: Performed By: #### L 100.0100, L501.2300 ####[facility] [address] [place], [address] Platelets (Bld) [#/Vol] 147 10*3/uL Low 150-450 [facility] Comment on above: Performed By: #### L 100.0100, L501.2300 ####[facility] [address] [place], [address] RBC (Bld) [#/Vol] 3.81 10*6/uL Low 4.2-5.4 [facility] Comment on above: Performed By: #### L 100.0100, L501.2300 ####[facility] [address] [place], [address] RDW SD 42.1 fl Normal 35.1-43.9 [facility] Comment on above: Performed By: #### L 100.0100, L501.2300 ####[facility] [address] [place], [address] WBC (Bld) [#/Vol] 16.7 10*3/uL High 4.4-11.0 [facility] Comment on above: Performed By: #### L 100.0100, L501.2300 ####[facility] [address] [place], [address] Comprehensive Metabolic Prof ilon 06-09-2024 Albumin [Mass/Vol] 3.0 g/dL Low 3.2-5.0 [facility] Comment on above: Order Comment: Call with results STAT Performed By: #### L 501.5200, L500.4050 ####[facility] [address] [place], [address] Albumin/Globulin [Mass ratio] 1.1 {ratio} Normal 0.9-2.4 [facility] Comment on above: Order Comment: Call MD with results STAT Performed By: #### L 501.5200, L500.4050 ####[facility] [address] [place], [address] ALK P 68 U/L Normal 45-117 [facility] Comment on above: Order Comment: Call MD with results STAT Performed By: #### L 501.5200, L500.4050 ####[facility] [address] [place], [address] ALT [Catalytic activity/Vol] 22 U/L Normal 13-56 [facility] Comment on above: Order Comment: Call MD with results STAT Performed By: #### L 501.5200, L500.4050 ####[facility] [address] [place], [address] AST [Catalytic activity/Vol] 12 U/L Low 15-37 [facility] Comment on above: Order Comment: Call MD with results STAT Performed By: #### L 501.5200, L500.4050 ####[facility] [address] [place], [address] Bilirubin [Mass/Vol] 0.80 mg/dL Normal 0.20-1.00 [facility] Comment on above: Order Comment: Call MD with results STAT Result Comment: For patients on eltrombopag therapy, use of Dimension Heath TBIL is not recommended. Performed By: #### L 501.5200, L500.4050 ####[facility] [address] [place], [address] BUN/CRE 16.7 RATIO Normal 10-20 [facility] Comment on above: Order Comment: Call MD with results STAT Performed By: #### L 501.5200, L500.4050 ####[facility] [address] [place], [address] CA,Total 7.7 mg/dL Low 8.5-10.1 [facility] Comment on above: Order Comment: Call MD with results STAT Performed By: #### L 501.5200, L500.4050 ####[facility] [address] [place], [address] Chloride [Moles/Vol] 111 mmol/L High 98-107 [facility] Comment on above: Order Comment: Call MD with results STAT Performed By: #### L 501.5200, L500.4050 ####[facility] [address] [place], [address] CO2 [Moles/Vol] 23.0 mmol/L Normal 21.0-32.0 [facility] Comment on above: Order Comment: Call MD with results STAT Performed By: #### L 501.5200, L500.4050 ####[facility] [address] [place], [address] Creatinine [Mass/Vol] 0.60 mg/dL Normal 0.55-1.02 [facility] Comment on above: Order Comment: Call MD with results STAT Result Comment: The validity of the calculated GFR GFRAA in patients over70 years has not been determined. Clinical correlation isessential. Performed By: #### L 501.5200, L500.4050 ####[facility] [address] [place], [address] ECRCL 144.58 ml/min Normal [facility] Comment on above: Order Comment: Call MD with results STAT Performed By: #### L 501.5200, L500.4050 ####[facility] [address] [place], [address] EST GFR - AA 151 mL/min Normal >60 [facility] Comment on above: Order Comment: Call MD with results STAT Result Comment: Afri can Ecuadorean GFR Calc Performed By: #### L 501.5200, L500.4050 ####[facility] [address] [place], [address] GAP 6 Normal 5-15 [facility] Comment on above: Order Comment: Call MD with results STAT Performed By: #### L 501.5200, L500.4050 ####[facility] [address] [place], [address] GFR/1.73 sq M.predicted among non-blacks MDRD (S/P/Bld) [Vol rate/Area] 125 mL/min/{1.73_m2} Normal >60 [facility] Comment on above: Order Comment: Call MD with results STAT Result Comment: Non- GFR Calc Performed By: #### L 501.5200, L500.4050 ####[facility] [address] [place], [address] Globulin (S) [Mass/Vol] 2.7 g/dL Normal 2.2-4.2 [facility] Comment on above: Order Comment: Call MD with results STAT Performed By: #### L 501.5200, L500.4050 ####[facility] [address] [place], [address] Glucose [Mass/Vol] 142 mg/dL High 74-106 [facility] Comment on above: Order Comment: Call MD with results STAT Result Comment: Fast ing Glucose result greater than or equal to 126 mg/dLsuggests DIABETES MELLITUS per A.D.A. criteria. Performed By: #### L 501.5200, L500.4050 ####[facility] [address] [place], [address] Potassium [Moles/Vol] 3.0 mmol/L Low 3.5-5.1 [facility] Comment on above: Order Comment: Call MD with results STAT Performed By: #### L 501.5200, L500.4050 ####[facility] [address] [place], [address] Sodium [Moles/Vol] 139 mmol/L Normal 136-145 [facility] Comment on above: Order Comment: Call MD with results STAT Performed By: #### L 501.5200, L500.4050 ####[facility] [address] [place], [address] T PROT 5.7 g/dL Low 6.4-8.2 [facility] Comment on above: Order Comment: Call MD with results STAT Performed By: #### L 501.5200, L500.4050 ####[facility] [address] [place], [address] Urea nitrogen [Mass/Vol] 10 mg/dL Normal 7-18 [facility] Comment on above: Order Comment: Call MD with results STAT Performed By: #### L 501.5200, L500.4050 ####[facility] [address] [place], [address] Magnesiumon 06-09-2024 Magnesium [Mass/Vol] 2.0 mg/dL Normal 1.6-2.6 [facility] Comment on above: Order Comment: Call MD with results STAT Performed By: #### L 501.5200, L500.4050 ####[facility] [address] [place], [address] Phosphoruson 06-09-2024 Phosphate [Mass/Vol] 1.2 mg/dL Low 2.5-4.9 [facility] Comment on above: Performed By: #### L 100.0100, L501.2300 ####[facility] [address] [place], [address] Acetone Serumon 06-08-2024 ACETONE SERUM SMALL Abnormal NEG [facility] Comment on above: Order Comment: Comme nts: If not done in the ED Performed By: #### L 501.6900 ####[facility] [address] [place], [address] Basic Metabolic Profile (BMP )on 06-08-2024 BUN Normal 7-18 [facility] Comment on above: Order Comment: Call MD with results STAT Result Comment: NOT COLLECTED. Performed By: #### L 500.2500 ####[facility] [address] [place], [address] BUN/CRE Normal 10-20 [facility] Comment on above: Order Comment: Call MD with results STAT Result Comment: NOT COLLECTED. Performed By: #### L 500.2500 ####[facility] [address] [place], [address] CA,Total Normal 8.5-10.1 [facility] Comment on above: Order Comment: Call MD with results STAT Result Comment: NOT COLLECTED. Performed By: #### L 500.2500 ####[facility] [address] [place], [address] CL Normal 98-107 [facility] Comment on above: Order Comment: Call MD with results STAT Result Comment: NOT COLLECTED. Performed By: #### L 500.2500 ####[facility] [address] [place], [address] CO2 Normal 21.0-32.0 [facility] Comment on above: Order Comment: Call MD with results STAT Result Comment: NOT COLLECTED. Performed By: #### L 500.2500 ####[facility] [address] [place], [address] CREAT,SERUM Normal 0.55-1.02 [facility] Comment on above: Order Comment: Call MD with results STAT Result Comment: NOT COLLECTED. Performed By: #### L 500.2500 ####[facility] [address] [place], [address] EST GFR Normal >60 [facility] Comment on above: Order Comment: Call MD with results STAT Result Comment: NOT COLLECTED. Performed By: #### L 500.2500 ####[facility] [address] [place], [address] EST GFR - AA Normal >60 [facility] Comment on above: Order Comment: Call MD with results STAT Result Comment: NOT COLLECTED. Performed By: #### L 500.2500 ####[facility] [address] [place], [address] GAP Normal 5-15 [facility] Comment on above: Order Comment: Call MD with results STAT Result Comment: NOT COLLECTED. Performed By: #### L 500.2500 ####[facility] [address] [place], [address] GLU Normal 74-106 [facility] Comment on above: Order Comment: Call MD with results STAT Result Comment: NOT COLLECTED. Performed By: #### L 500.2500 ####[facility] [address] [place], [address] Potassium Normal 3.5-5.1 [facility] Comment on above: Order Comment: Call MD with results STAT Result Comment: NOT COLLECTED. Performed By: #### L 500.2500 ####[facility] [address] [place], [address] Basic Metabolic Profile (BMP) Normal 136-145 [facility] Comment on above: Order Comment: Call MD with results STAT Result Comment: NOT COLLECTED. Performed By: #### L 500.2500 ####[facility] [address] [place], [address] BUN Normal 7-18 [facility] Comment on above: Order Comment: Call MD with results STAT Result Comment: NOT COLLECTED. Performed By: #### L 500.2500 ####[facility] [address] [place], [address] BUN/CRE Normal 10-20 [facility] Comment on above: Order Comment: Call MD with results STAT Result Comment: NOT COLLECTED. Performed By: #### L 500.2500 ####[facility] [address] [place], [address] CA,Total Normal 8.5-10.1 [facility] Comment on above: Order Comment: Call MD with results STAT Result Comment: NOT COLLECTED. Performed By: #### L 500.2500 ####[facility] [address] [place], [address] CL Normal 98-107 [facility] Comment on above: Order Comment: Call MD with results STAT Result Comment: NOT COLLECTED. Performed By: #### L 500.2500 ####[facility] [address] [place], [address] CO2 Normal 21.0-32.0 [facility] Comment on above: Order Comment: Call MD with results STAT Result Comment: NOT COLLECTED. Performed By: #### L 500.2500 ####[facility] [address] [place], [address] CREAT,SERUM Normal 0.55-1.02 [facility] Comment on above: Order Comment: Call MD with results STAT Result Comment: NOT COLLECTED. Performed By: #### L 500.2500 ####[facility] [address] [place], [address] EST GFR Normal >60 [facility] Comment on above: Order Comment: Call MD with results STAT Result Comment: NOT COLLECTED. Performed By: #### L 500.2500 ####[facility] [address] [place], [address] EST GFR - AA Normal >60 [facility] Comment on above: Order Comment: Call MD with results STAT Result Comment: NOT COLLECTED. Performed By: #### L 500.2500 ####[facility] [address] [place], [address] GAP Normal 5-15 [facility] Comment on above: Order Comment: Call MD with results STAT Result Comment: NOT COLLECTED. Performed By: #### L 500.2500 ####[facility] [address] [place], [address] GLU Normal 74-106 [facility] Comment on above: Order Comment: Call MD with results STAT Result Comment: NOT COLLECTED. Performed By: #### L 500.2500 ####[facility] [address] [place], [address] Potassium Normal 3.5-5.1 [facility] Comment on above: Order Comment: Call MD with results STAT Result Comment: NOT COLLECTED. Performed By: #### L 500.2500 ####[facility] [address] [place], [address] Basic Metabolic Profile (BMP) Normal 136-145 [facility] Comment on above: Order Comment: Call MD with results STAT Result Comment: NOT COLLECTED. Performed By: #### L 500.2500 ####[facility] [address] [place], [address] BUN/CRE 19.6 RATIO Normal 10-20 [facility] Comment on above: Performed By: #### L 500.2500 ####[facility] [address] [place], [address] CA,Total 8.0 mg/dL Low 8.5-10.1 [facility] Comment on above: Performed By: #### L 500.2500 ####[facility] [address] [place], [address] Chloride [Moles/Vol] 112 mmol/L High 98-107 [facility] Comment on above: Performed By: #### L 500.2500 ####[facility] [address] [place], [address] CO2 [Moles/Vol] 18.0 mmol/L Low 21.0-32.0 [facility] Comment on above: Performed By: #### L 500.2500 ####[facility] [address] [place], [address] Creatinine [Mass/Vol] 0.87 mg/dL Normal 0.55-1.02 [facility] Comment on above: Result Comment: The validity of the calculated GFR GFRAA in patients over70 years has not been determined. Clinical correlation isessential. Performed By: #### L 500.2500 ####[facility] [address] [place], [address] ECRCL 99.71 ml/min Normal [facility] Comment on above: Performed By: #### L 500.2500 ####[facility] [address] [facility] [address] EST GFR - AA 99 mL/min Normal >60 [facility] Comment on above: Result Comment: Afri can Ecuadorean GFR Calc Performed By: #### L 500.2500 ####[facility] [address] [facility] [address] GAP 10 Normal 5-15 [facility] Comment on above: Performed By: #### L 500.2500 ####[facility] [address] [facility] [address] GFR/1.73 sq M.predicted among non-blacks MDRD (S/P/Bld) [Vol rate/Area] 82 mL/min/{1.73_m2} Normal >60 [facility] Comment on above: Result Comment: Non- GFR Calc Performed By: #### L 500.2500 ####[facility] [address] [place] [id number] Glucose [Mass/Vol] 189 mg/dL High 74-106 [facility] Comment on above: Result Comment: Fast ing Glucose result greater than or equal to 126 mg/dLsuggests DIABETES MELLITUS per A.D.A. criteria. Performed By: #### L 500.2500 ####[facility] [address] [place], [address] Potassium [Moles/Vol] 3.8 mmol/L Normal 3.5-5.1 [facility] Comment on above: Performed By: #### L 500.2500 ####[facility] [address] [place], [address] Sodium [Moles/Vol] 140 mmol/L Normal 136-145 [facility] Comment on above: Performed By: #### L 500.2500 ####[facility] [address] [place], [address] Urea nitrogen [Mass/Vol] 17 mg/dL Normal 7-18 [facility] Comment on above: Performed By: #### L 500.2500 ####[facility] [address] [place], [address] BUN Normal 7-18 [facility] Comment on above: Order Comment: Call MD with results STAT Result Comment: NOT COLLECTED. Performed By: #### L 500.2500 ####[facility] [address] [place], [address] BUN/CRE Normal 10-20 [facility] Comment on above: Order Comment: Call MD with results STAT Result Comment: NOT COLLECTED. Performed By: #### L 500.2500 ####[facility] [address] [place], [address] CA,Total Normal 8.5-10.1 [facility] Comment on above: Order Comment: Call MD with results STAT Result Comment: NOT COLLECTED. Performed By: #### L 500.2500 ####[facility] [address] [place], [address] CL Normal 98-107 [facility] Comment on above: Order Comment: Call MD with results STAT Result Comment: NOT COLLECTED. Performed By: #### L 500.2500 ####[facility] [address] [place], [address] CO2 Normal 21.0-32.0 [facility] Comment on above: Order Comment: Call MD with results STAT Result Comment: NOT COLLECTED. Performed By: #### L 500.2500 ####[facility] [address] [place], [address] CREAT,SERUM Normal 0.55-1.02 [facility] Comment on above: Order Comment: Call MD with results STAT Result Comment: NOT COLLECTED. Performed By: #### L 500.2500 ####[facility] [address] [place], [address] EST GFR Normal >60 [facility] Comment on above: Order Comment: Call MD with results STAT Result Comment: NOT COLLECTED. Performed By: #### L 500.2500 ####[facility] [address] [place], [address] EST GFR - AA Normal >60 [facility] Comment on above: Order Comment: Call MD with results STAT Result Comment: NOT COLLECTED. Performed By: #### L 500.2500 ####[facility] [address] [place], [address] GAP Normal 5-15 [facility] Comment on above: Order Comment: Call MD with results STAT Result Comment: NOT COLLECTED. Performed By: #### L 500.2500 ####[facility] [address] [place], [address] GLU Normal 74-106 [facility] Comment on above: Order Comment: Call MD with results STAT Result Comment: NOT COLLECTED. Performed By: #### L 500.2500 ####[facility] [address] [place], [address] Potassium Normal 3.5-5.1 [facility] Comment on above: Order Comment: Call MD with results STAT Result Comment: NOT COLLECTED. Performed By: #### L 500.2500 ####[facility] [address] [place], [address] Basic Metabolic Profile (BMP) Normal 136-145 [facility] Comment on above: Order Comment: Call MD with results STAT Result Comment: NOT COLLECTED. Performed By: #### L 500.2500 ####[facility] [address] [place], [address] BUN/CRE 19.6 RATIO Normal 10-20 [facility] Comment on above: Order Comment: Call MD with results STAT Performed By: #### L 500.2500 ####[facility] [address] [place], [address] CA,Total 7.9 mg/dL Low 8.5-10.1 [facility] Comment on above: Order Comment: Call MD with results STAT Performed By: #### L 500.2500 ####[facility] [address] [place], [address] Chloride [Moles/Vol] 112 mmol/L High 98-107 [facility] Comment on above: Order Comment: Call MD with results STAT Performed By: #### L 500.2500 ####[facility] [address] [place], [address] CO2 [Moles/Vol] 17.0 mmol/L Low 21.0-32.0 [facility] Comment on above: Order Comment: Call MD with results STAT Performed By: #### L 500.2500 ####[facility] [address] [place], [address] Creatinine [Mass/Vol] 1.02 mg/dL Normal 0.55-1.02 [facility] Comment on above: Order Comment: Call MD with results STAT Result Comment: The validity of the calculated GFR GFRAA in patients over70 years has not been determined. Clinical correlation isessential. Performed By: #### L 500.2500 ####[facility] [address] [place], [address] ECRCL 82.09 ml/min Normal [facility] Comment on above: Order Comment: Call MD with results STAT Performed By: #### L 500.2500 ####[facility] [address] [place], [address] EST GFR - AA 82 mL/min Normal >60 [facility] Comment on above: Order Comment: Call MD with results STAT Result Comment: Afri can Ecuadorean GFR Calc Performed By: #### L 500.2500 ####[facility] [address] [place], [address] GAP 10 Normal 5-15 [facility] Comment on above: Order Comment: Call MD with results STAT Performed By: #### L 500.2500 ####[facility] [address] [place], [address] GFR/1.73 sq M.predicted among non-blacks MDRD (S/P/Bld) [Vol rate/Area] 68 mL/min/{1.73_m2} Normal >60 [facility] Comment on above: Order Comment: Call MD with results STAT Result Comment: Non- GFR Calc Performed By: #### L 500.2500 ####[facility] [address] [place], [address] Glucose [Mass/Vol] 168 mg/dL High 74-106 [facility] Comment on above: Order Comment: Call MD with results STAT Result Comment: Fast ing Glucose result greater than or equal to 126 mg/dLsuggests DIABETES MELLITUS per A.D.A. criteria. Performed By: #### L 500.2500 ####[facility] [address] [place], [address] Potassium [Moles/Vol] 3.7 mmol/L Normal 3.5-5.1 [facility] Comment on above: Order Comment: Call MD with results STAT Performed By: #### L 500.2500 ####[facility] [address] [place], [address] Sodium [Moles/Vol] 139 mmol/L Normal 136-145 [facility] Comment on above: Order Comment: Call MD with results STAT Performed By: #### L 500.2500 ####[facility] [address] [place], [address] Urea nitrogen [Mass/Vol] 20 mg/dL High 7-18 [facility] Comment on above: Order Comment: Call MD with results STAT Performed By: #### L 500.2500 ####[facility] [address] [place], [address] Bedside Glucoseon 06-08-2024 FINGERSTICK GLU 191 mg/dL High 74-106 [facility] Comment on above: Result Comment: EDGAR GEMENT OF PATIENT CARE PER NURSING PROTOCOL Performed By: #### L 501.080 ####[facility] [address] [facility] [address] FINGERSTICK GLU 198 mg/dL High 74-106 [facility] Comment on above: Result Comment: EDGAR GEMENT OF PATIENT CARE PER NURSING PROTOCOL Performed By: #### L 501.080 ####[facility] [address] [facility] [address] FINGERSTICK GLU 247 mg/dL High 74-106 [facility] Comment on above: Result Comment: EDGAR GEMENT OF PATIENT CARE PER NURSING PROTOCOL Performed By: #### L 501.080 ####[facility] [address] [place], [address] FINGERSTICK GLU 252 mg/dL High 74-106 [facility] Comment on above: Result Comment: EDGAR GEMENT OF PATIENT CARE PER NURSING PROTOCOL Performed By: #### L 501.080 ####[facility] [address] [place], [address] FINGERSTICK GLU 205 mg/dL High 74-106 [facility] Comment on above: Result Comment: EDGAR GEMENT OF PATIENT CARE PER NURSING PROTOCOL Performed By: #### L 501.080 ####[facility] [address] [facility] [address] FINGERSTICK GLU 151 mg/dL High 74-106 [facility] Comment on above: Result Comment: EDGAR GEMENT OF PATIENT CARE PER NURSING PROTOCOL Performed By: #### L 501.080 ####[facility] [address] [place], [address] FINGERSTICK GLU 176 mg/dL High 74-106 [facility] Comment on above: Result Comment: EDGAR GEMENT OF PATIENT CARE PER NURSING PROTOCOL Performed By: #### L 501.080 ####[facility] [address] [place], [address] FINGERSTICK GLU 121 mg/dL High 74-106 [facility] Comment on above: Result Comment: EDGAR GEMENT OF PATIENT CARE PER NURSING PROTOCOL Performed By: #### L 501.080 ####[facility] [address] [place], [address] FINGERSTICK GLU 108 mg/dL High 74-106 [facility] Comment on above: Result Comment: EDGAR GEMENT OF PATIENT CARE PER NURSING PROTOCOL Performed By: #### L 501.080 ####[facility] [address] [place], [address] FINGERSTICK GLU 114 mg/dL High 74-106 [facility] Comment on above: Result Comment: EDGAR GEMENT OF PATIENT CARE PER NURSING PROTOCOL Performed By: #### L 501.080 ####[facility] [address] [place], [address] FINGERSTICK GLU 236 mg/dL High 74-106 [facility] Comment on above: Result Comment: EDGAR GEMENT OF PATIENT CARE PER NURSING PROTOCOL Performed By: #### L 501.080 ####[facility] [address] [place], [address] FINGERSTICK GLU 251 mg/dL High 74-106 [facility] Comment on above: Result Comment: EDGAR GEMENT OF PATIENT CARE PER NURSING PROTOCOL Performed By: #### L 501.080 ####[facility] [address] [place], [address] FINGERSTICK GLU 261 mg/dL High 74-106 [facility] Comment on above: Result Comment: EDGAR GEMENT OF PATIENT CARE PER NURSING PROTOCOL Performed By: #### L 501.080 ####[facility] [address] [place], [address] FINGERSTICK GLU 402 mg/dL High 74-106 [facility] Comment on above: Result Comment: EDGAR GEMENT OF PATIENT CARE PER NURSING PROTOCOL Performed By: #### L 501.080 ####[facility] [address] [place], [address] FINGERSTICK GLU 324 mg/dL High 74-106 [facility] Comment on above: Result Comment: EDGAR GEMENT OF PATIENT CARE PER NURSING PROTOCOL Performed By: #### L 501.080 ####[facility] [address] [place], [address] Blood Gases by [facility] 024 GEM TEST Positive Normal [facility] Comment on above: Performed By: #### L 9000.0800 ####[facility] [address] [place], [address] Base excess Calc (Bld) [Moles/Vol] -14 mmol/L Low -2 to +2 [facility] Comment on above: Performed By: #### L 9000.0800 ####[facility] [address] [place], [address] Blood Gas Type ART Normal [facility] Comment on above: Performed By: #### L 9000.0800 ####[facility] [address] [place], [address] CO2 [Moles/Vol] 11 mmol/L Normal [facility] Comment on above: Performed By: #### L 9000.0800 ####[facility] [address] [place], [address] FI02 21.0 Normal [facility] Comment on above: Performed By: #### L 9000.0800 ####[facility] [address] [place], [address] HCO3 (Bld) [Moles/Vol] 10.7 mmol/L Low 22-[address] [facility] Comment on above: Performed By: #### L 9000.0800 ####[facility] [address] [place], [address] Mode Not entered [facility] Comment on above: Performed By: #### L 9000.0800 ####[facility] [address] [place], [address] O2 Delivery Dev Room Air [facility] Comment on above: Performed By: #### L 9000.0800 ####[facility] [address] [place], [address] pCO2 17.9 mmHg Invalid Interpretation Code 35-45 [facility] Comment on above: Performed By: #### L 9000.0800 ####[facility] [address] [place], [address] pH (Bld) 7.39 [pH] Normal 7.35-7.45 [facility] Comment on above: Performed By: #### L 9000.0800 ####[facility] [address] [place], [address] PO2 114 mmHG High 75-100 [facility] Comment on above: Performed By: #### L 9000.0800 ####[facility] [address] [place], [address] Read Back By Yes [facility] Comment on above: Performed By: #### L 9000.0800 ####[facility] [address] [place], [address] Results To denia [facility] Comment on above: Performed By: #### L 0.0800 ####[facility] [address] [place], [address] SITE L Radial Normal [facility] Comment on above: Performed By: #### L 0.0800 ####[facility] [address] [place], [address] SO2 99 Normal 95-99 [facility] Comment on above: Performed By: #### L 8999.0800 ####[facility] [address] [place], [address] Time Given 09:45:00 Normal [facility] Comment on above: Performed By: #### L 0.0800 ####[facility] [address] [place], [address] CBC W/Diff, Automatedon 10-1 Absolute Lymph 0.71 X10 3/uL Low 0.83-4.51 [facility] Comment on above: Performed By: #### L 501.5200, L100.0100, L500.4050 ####[facility] [address] [place], [address] Absolute Neut 19.8 X10 3/uL High 2.0-7.7 [facility] Comment on above: Performed By: #### L 501.5200, L100.0100, L500.4050 ####[facility] [address] [place], [address] Basophils/100 WBC (Bld) 0.1 % Normal 0-1 [facility] Comment on above: Performed By: #### L 501.5200, L100.0100, L500.4050 ####[facility] [facility] [address] [place], [address] Eosinophils/100 WBC (Bld) 0.0 % Normal 0-5 [facility] Comment on above: Performed By: #### L 501.5200, L100.0100, L500.4050 ####[facility] [address] [place], [address] Erythrocyte distribution width (RBC) [Ratio] 12.9 % Normal 11.6-14.6 [facility] Comment on above: Performed By: #### L 501.5200, L100.0100, L500.4050 ####[facility] [address] [place], [address] Hematocrit (Bld) [Volume fraction] 41.0 % Normal 37-47 [facility] Comment on above: Performed By: #### L 501.5200, L100.0100, L500.4050 ####[facility] [address] [place], [address] Hemoglobin (Bld) [Mass/Vol] 13.2 g/dL Normal 12.0-15.0 [facility] Comment on above: Performed By: #### L 501.5200, L100.0100, L500.4050 ####[facility] [address] [place], [address] IG% 0.900 Normal 0.0-0.9 [facility] Comment on above: Result Comment: IG% - Immature Granulocytes (promyelocytes, myelocytes andmetamyelocytes) > 1% indicates that a LEFT SHIFT is Present. Performed By: #### L 501.5200, L100.0100, L500.4050 ####[facility] [address] [place], [address] Lymphocytes/100 WBC (Bld) 3.3 % Low 19-41 [facility] Comment on above: Performed By: #### L 501.5200, L100.0100, L500.4050 ####[facility] [address] [place], [address] MCH (RBC) [Entitic mass] 29.7 pg Normal 27.0-32.0 [facility] Comment on above: Performed By: #### L 501.5200, L100.0100, L500.4050 ####[facility] [address] [place], [address] MCHC (RBC) [Mass/Vol] 32.2 g/dL Normal 32-36 [facility] Comment on above: Performed By: #### L 501.5200, L100.0100, L500.4050 ####[facility] [address] [place], [address] MCV (RBC) [Entitic vol] 92.1 fL Normal 81-99 [facility] Comment on above: Performed By: #### L 501.5200, L100.0100, L500.4050 ####[facility] [address] [place], [address] Monocytes/100 WBC (Bld) 4.9 % Normal 0-10 [facility] Comment on above: Performed By: #### L 501.5200, L100.0100, L500.4050 ####[facility] [address] [place], [address] Neutrophils/100 WBC (Bld) 90.8 % High 47-70 [facility] Comment on above: Performed By: #### L 501.5200, L100.0100, L500.4050 ####[facility] [address] [place], [address] Nucleated RBC (Bld) [#/Vol] 0 10*3/uL Normal 0-5 [facility] Comment on above: Performed By: #### L 501.5200, L100.0100, L500.4050 ####[facility] [address] [place], [address] Platelet mean volume (Bld) [Entitic vol] 13.6 fL High 6.2-12.0 [facility] Comment on above: Performed By: #### L 501.5200, L100.0100, L500.4050 ####[facility] [address] [place], [address] Platelets (Bld) [#/Vol] 171 10*3/uL Normal 150-450 [facility] Comment on above: Performed By: #### L 501.5200, L100.0100, L500.4050 ####[facility] [address] [place], [address] RBC (Bld) [#/Vol] 4.45 10*6/uL Normal 4.2-5.4 [facility] Comment on above: Performed By: #### L 501.5200, L100.0100, L500.4050 ####[facility] [address] [place], [address] RDW SD 43.6 fl Normal 35.1-43.9 [facility] Comment on above: Performed By: #### L 501.5200, L100.0100, L500.4050 ####[facility] [address] [place], [address] WBC (Bld) [#/Vol] 21.8 10*3/uL High 4.4-11.0 [facility] Comment on above: Performed By: #### L 501.5200, L100.0100, L500.4050 ####[facility] [address] [place], [address] Comprehensive Metabolic Prof ilon 06-08-2024 Albumin [Mass/Vol] 3.9 g/dL Normal 3.2-5.0 [facility] Comment on above: Performed By: #### L 501.5200, L100.0100, L500.4050 ####[facility] [address] [place], [address] Albumin/Globulin [Mass ratio] 1.2 {ratio} Normal 0.9-2.4 [facility] Comment on above: Performed By: #### L 501.5200, L100.0100, L500.4050 ####[facility] [address] [place], [address] ALK P 90 U/L Normal 45-117 [facility] Comment on above: Performed By: #### L 501.5200, L100.0100, L500.4050 ####[facility] [address] [place], [address] ALT [Catalytic activity/Vol] 21 U/L Normal 13-56 [facility] Comment on above: Performed By: #### L 501.5200, L100.0100, L500.4050 ####[facility] [address] [place], [address] AST [Catalytic activity/Vol] 15 U/L Normal 15-37 [facility] Comment on above: Performed By: #### L 501.5200, L100.0100, L500.4050 ####[facility] [address] [place], [address] Bilirubin [Mass/Vol] 1.30 mg/dL High 0.20-1.00 [facility] Comment on above: Result Comment: For patients on eltrombopag therapy, use of Dimension Heath TBIL is not recommended. Performed By: #### L 501.5200, L100.0100, L500.4050 ####[facility] [address] [place], [address] BUN/CRE 22.0 RATIO High 10-20 [facility] Comment on above: Performed By: #### L 501.5200, L100.0100, L500.4050 ####[facility] [address] [place], [address] CA,Total 8.9 mg/dL Normal 8.5-10.1 [facility] Comment on above: Performed By: #### L 501.5200, L100.0100, L500.4050 ####[facility] [address] [place], [address] Chloride [Moles/Vol] 100 mmol/L Normal 98-107 [facility] Comment on above: Performed By: #### L 501.5200, L100.0100, L500.4050 ####[facility] [address] [place], [address] CO2 [Moles/Vol] 12.0 mmol/L Low 21.0-32.0 [facility] Comment on above: Performed By: #### L 501.5200, L100.0100, L500.4050 ####[facility] [address] [place], [address] Creatinine [Mass/Vol] 1.00 mg/dL Normal 0.55-1.02 [facility] Comment on above: Result Comment: The validity of the calculated GFR GFRAA in patients over70 years has not been determined. Clinical correlation isessential. Performed By: #### L 501.5200, L100.0100, L500.4050 ####[facility] [address] [place], [address] ECRCL 83.74 ml/min Normal [facility] Comment on above: Performed By: #### L 501.5200, L100.0100, L500.4050 ####[facility] [address] [place], [address] EST GFR - AA 84 mL/min Normal >60 [facility] Comment on above: Result Comment: Afri can Ecuadorean GFR Calc Performed By: #### L 501.5200, L100.0100, L500.4050 ####[facility] [address] [place], [address] GAP 18 High 5-15 [facility] Comment on above: Performed By: #### L 501.5200, L100.0100, L500.4050 ####[facility] [address] [place], [address] GFR/1.73 sq M.predicted among non-blacks MDRD (S/P/Bld) [Vol rate/Area] 69 mL/min/{1.73_m2} Normal >60 [facility] Comment on above: Result Comment: Non- GFR Calc Performed By: #### L 501.5200, L100.0100, L500.4050 ####[facility] [address] [place], [address] Globulin (S) [Mass/Vol] 3.2 g/dL Normal 2.2-4.2 [facility] Comment on above: Performed By: #### L 501.5200, L100.0100, L500.4050 ####[facility] [address] [place], [address] Glucose [Mass/Vol] 398 mg/dL High 74-106 [facility] Comment on above: Result Comment: Gluc ose result greater than or equal to 200 mg/dLsuggests DIABETES MELLITUS per A.D.A. criteria. Performed By: #### L 501.5200, L100.0100, L500.4050 ####[facility] [address] [place], [address] Potassium [Moles/Vol] 4.2 mmol/L Normal 3.5-5.1 [facility] Comment on above: Performed By: #### L 501.5200, L100.0100, L500.4050 ####[facility] [address] [place], [address] Sodium [Moles/Vol] 131 mmol/L Low 136-145 [facility] Comment on above: Performed By: #### L 501.5200, L100.0100, L500.4050 ####[facility] [address] [place], [address] T PROT 7.1 g/dL Normal 6.4-8.2 [facility] Comment on above: Performed By: #### L 501.5200, L100.0100, L500.4050 ####[facility] [address] [place], [address] Urea nitrogen [Mass/Vol] 22 mg/dL High 7-18 [facility] Comment on above: Performed By: #### L 501.5200, L100.0100, L500.4050 ####[facility] [address] [place], [address] Hemoglobin A1con 06-08-2024 HbA1c (Bld) [Mass fraction] 8.6 % High 3.8-5.6 [facility] Comment on above: Result Comment: Norm al < 5.7 % Prediabetic 5.7 - 6.4 % Diabetic >or= 6.5 % Please note range changes. Performed By: #### L 501.9962 ####[facility] [address] [place], [address] Magnesiumon 06-08-2024 Magnesium [Mass/Vol] 1.8 mg/dL Normal 1.6-2.6 [facility] Comment on above: Performed By: #### L 501.5200, L100.0100, L500.4050 ####[facility] [address] [place], [address] Abdomen/Pelvis W IV Cont ONL Yon 06-07-2024 Abdomen/Pelvis W IV Cont ONLY Normal [facility] Bedside Glucoseon 06-07-2024 FINGERSTICK GLU 422 mg/dL High 74-106 [facility] Comment on above: Result Comment: EDGAR GEMENT OF PATIENT CARE PER NURSING PROTOCOL Performed By: #### L 501.080 ####[facility] [address] [place], [address] FINGERSTICK GLU 331 mg/dL High 74-106 [facility] Comment on above: Result Comment: EDGAR HUNG OF PATIENT CARE PER NURSING PROTOCOL Performed By: #### L 501.080 ####[facility] [address] [place], [address] CBC W/Diff, Automatedon 10- Absolute Lymph 0.76 X10 3/uL Low 0.83-4.51 [facility] Comment on above: Performed By: #### L 500.4050, L501.4020, L100.0100, L501.2450 ####[facility] [address] [place], [address] Absolute Neut 14.6 X10 3/uL High 2.0-7.7 [facility] Comment on above: Performed By: #### L 500.4050, L501.4020, L100.0100, L501.2450 ####[facility] [address] [place], [address] Basophils/100 WBC (Bld) 0.3 % Normal 0-1 [facility] Comment on above: Performed By: #### L 500.4050, L501.4020, L100.0100, L501.2450 ####[facility] [address] [place], [address] Eosinophils/100 WBC (Bld) 0.0 % Normal 0-5 [facility] Comment on above: Performed By: #### L 500.4050, L501.4020, L100.0100, L501.2450 ####[facility] [address] [place], [address] Erythrocyte distribution width (RBC) [Ratio] 12.3 % Normal 11.6-14.6 [facility] Comment on above: Performed By: #### L 500.4050, L501.4020, L100.0100, L501.2450 ####[facility] [address] [place], [address] Hematocrit (Bld) [Volume fraction] 39.5 % Normal 37-47 [facility] Comment on above: Performed By: #### L 500.4050, L501.4020, L100.0100, L501.2450 ####[facility] [address] [place], [address] Hemoglobin (Bld) [Mass/Vol] 13.4 g/dL Normal 12.0-15.0 [facility] Comment on above: Performed By: #### L 500.4050, L501.4020, L100.0100, L501.2450 ####[facility] [address] [place], [address] IG% 0.900 Normal 0.0-0.9 [facility] Comment on above: Result Comment: IG% - Immature Granulocytes (promyelocytes, myelocytes andmetamyelocytes) > 1% indicates that a LEFT SHIFT is Present. Performed By: #### L 500.4050, L501.4020, L100.0100, L501.2450 ####[facility] [address] [place], [address] Lymphocytes/100 WBC (Bld) 4.8 % Low 19-41 [facility] Comment on above: Performed By: #### L 500.4050, L501.4020, L100.0100, L501.2450 ####[facility] [address] [place], [address] MCH (RBC) [Entitic mass] 29.2 pg Normal 27.0-32.0 [facility] Comment on above: Performed By: #### L 500.4050, L501.4020, L100.0100, L501.2450 ####[facility] [address] [place], [address] MCHC (RBC) [Mass/Vol] 33.9 g/dL Normal 32-36 [facility] Comment on above: Performed By: #### L 500.4050, L501.4020, L100.0100, L501.2450 ####[facility] [address] [place], [address] MCV (RBC) [Entitic vol] 86.1 fL Normal 81-99 [facility] Comment on above: Performed By: #### L 500.4050, L501.4020, L100.0100, L501.2450 ####[facility] [address] [place], [address] Monocytes/100 WBC (Bld) 2.6 % Normal 0-10 [facility] Comment on above: Performed By: #### L 500.4050, L501.4020, L100.0100, L501.2450 ####[facility] [address] [place], [address] Neutrophils/100 WBC (Bld) 91.4 % High 47-70 [facility] Comment on above: Performed By: #### L 500.4050, L501.4020, L100.0100, L501.2450 ####[facility] [address] [place], [address] Nucleated RBC (Bld) [#/Vol] 0 10*3/uL Normal 0-5 [facility] Comment on above: Performed By: #### L 500.4050, L501.4020, L100.0100, L501.2450 ####[facility] [address] [place], [address] Platelet mean volume (Bld) [Entitic vol] 13.6 fL High 6.2-12.0 [facility] Comment on above: Performed By: #### L 500.4050, L501.4020, L100.0100, L501.2450 ####[facility] [address] [place], [address] Platelets (Bld) [#/Vol] 167 10*3/uL Normal 150-450 [facility] Comment on above: Performed By: #### L 500.4050, L501.4020, L100.0100, L501.2450 ####[facility] [address] [place], [address] RBC (Bld) [#/Vol] 4.59 10*6/uL Normal 4.2-5.4 [facility] Comment on above: Performed By: #### L 500.4050, L501.4020, L100.0100, L501.2450 ####[facility] [address] [place], [address] RDW SD 38.5 fl Normal 35.1-43.9 [facility] Comment on above: Performed By: #### L 500.4050, L501.4020, L100.0100, L501.2450 ####[facility] [address] [place], [address] WBC (Bld) [#/Vol] 16.0 10*3/uL High 4.4-11.0 [facility] Comment on above: Performed By: #### L 500.4050, L501.4020, L100.0100, L501.2450 ####[facility] [address] [place], [address] Comprehensive Metabolic Prof ilon 06-07-2024 Albumin [Mass/Vol] 4.1 g/dL Normal 3.2-5.0 [facility] Comment on above: Order Comment: 'TROP ' Serial specimen #1, #2 or #3: 1 Performed By: #### L 500.4050, L501.4020, L100.0100, L501.2450 ####[facility] [address] [place], [address] Albumin/Globulin [Mass ratio] 1.2 {ratio} Normal 0.9-2.4 [facility] Comment on above: Order Comment: 'TROP ' Serial specimen #1, #2 or #3: 1 Performed By: #### L 500.4050, L501.4020, L100.0100, L501.2450 ####[facility] [address] [place], [address] ALK P 87 U/L Normal 45-117 [facility] Comment on above: Order Comment: 'TROP ' Serial specimen #1, #2 or #3: 1 Performed By: #### L 500.4050, L501.4020, L100.0100, L501.2450 ####[facility] [address] [place], [address] ALT [Catalytic activity/Vol] 25 U/L Normal 13-56 [facility] Comment on above: Order Comment: 'TROP ' Serial specimen #1, #2 or #3: 1 Performed By: #### L 500.4050, L501.4020, L100.0100, L501.2450 ####[facility] [address] [place], [address] AST [Catalytic activity/Vol] 15 U/L Normal 15-37 [facility] Comment on above: Order Comment: 'TROP ' Serial specimen #1, #2 or #3: 1 Performed By: #### L 500.4050, L501.4020, L100.0100, L501.2450 ####[facility] [address] [place], [address] Bilirubin [Mass/Vol] 1.30 mg/dL High 0.20-1.00 [facility] Comment on above: Order Comment: 'TROP ' Serial specimen #1, #2 or #3: 1 Result Comment: For patients on eltrombopag therapy, use of Dimension Heath TBIL is not recommended. Performed By: #### L 500.4050, L501.4020, L100.0100, L501.2450 ####[facility] [address] [place], [address] BUN/CRE 19.1 RATIO Normal 10-20 [facility] Comment on above: Order Comment: 'TROP ' Serial specimen #1, #2 or #3: 1 Performed By: #### L 500.4050, L501.4020, L100.0100, L501.2450 ####[facility] [address] [place], [address] CA,Total 9.5 mg/dL Normal 8.5-10.1 [facility] Comment on above: Order Comment: 'TROP ' Serial specimen #1, #2 or #3: 1 Performed By: #### L 500.4050, L501.4020, L100.0100, L501.2450 ####[facility] [address] [place], [address] Chloride [Moles/Vol] 105 mmol/L Normal 98-107 [facility] Comment on above: Order Comment: 'TROP ' Serial specimen #1, #2 or #3: 1 Performed By: #### L 500.4050, L501.4020, L100.0100, L501.2450 ####[facility] [address] [place], [address] CO2 [Moles/Vol] 17.0 mmol/L Low 21.0-32.0 [facility] Comment on above: Order Comment: 'TROP ' Serial specimen #1, #2 or #3: 1 Performed By: #### L 500.4050, L501.4020, L100.0100, L501.2450 ####[facility] [address] [place], [address] Creatinine [Mass/Vol] 0.94 mg/dL Normal 0.55-1.02 [facility] Comment on above: Order Comment: 'TROP ' Serial specimen #1, #2 or #3: 1 Result Comment: The validity of the calculated GFR GFRAA in patients over70 years has not been determined. Clinical correlation isessential. Performed By: #### L 500.4050, L501.4020, L100.0100, L501.2450 ####[facility] [address] [place], [address] ECRCL 92.29 ml/min Normal [facility] Comment on above: Order Comment: 'TROP ' Serial specimen #1, #2 or #3: 1 Performed By: #### L 500.4050, L501.4020, L100.0100, L501.2450 ####[facility] [address] [place], [address] EST GFR - AA 90 mL/min Normal >60 [facility] Comment on above: Order Comment: 'TROP ' Serial specimen #1, #2 or #3: 1 Result Comment: Afri can Ecuadorean GFR Calc Performed By: #### L 500.4050, L501.4020, L100.0100, L501.2450 ####[facility] [address] [place], [address] GAP 14 Normal 5-15 [facility] Comment on above: Order Comment: 'TROP ' Serial specimen #1, #2 or #3: 1 Performed By: #### L 500.4050, L501.4020, L100.0100, L501.2450 ####[facility] [address] [place], [address] GFR/1.73 sq M.predicted among non-blacks MDRD (S/P/Bld) [Vol rate/Area] 74 mL/min/{1.73_m2} Normal >60 [facility] Comment on above: Order Comment: 'TROP ' Serial specimen #1, #2 or #3: 1 Result Comment: Non- GFR Calc Performed By: #### L 500.4050, L501.4020, L100.0100, L501.2450 ####[facility] [address] [place], [address] Globulin (S) [Mass/Vol] 3.5 g/dL Normal 2.2-4.2 [facility] Comment on above: Order Comment: 'TROP ' Serial specimen #1, #2 or #3: 1 Performed By: #### L 500.4050, L501.4020, L100.0100, L501.2450 ####[facility] [address] [place], [address] Glucose [Mass/Vol] 355 mg/dL High 74-106 [facility] Comment on above: Order Comment: 'TROP ' Serial specimen #1, #2 or #3: 1 Result Comment: Gluc ose result greater than or equal to 200 mg/dLsuggests DIABETES MELLITUS per A.D.A. criteria. Performed By: #### L 500.4050, L501.4020, L100.0100, L501.2450 ####[facility] [address] [place], [address] Potassium [Moles/Vol] 3.4 mmol/L Low 3.5-5.1 [facility] Comment on above: Order Comment: 'TROP ' Serial specimen #1, #2 or #3: 1 Performed By: #### L 500.4050, L501.4020, L100.0100, L501.2450 ####[facility] [address] [place], [address] Sodium [Moles/Vol] 136 mmol/L Normal 136-145 [facility] Comment on above: Order Comment: 'TROP ' Serial specimen #1, #2 or #3: 1 Performed By: #### L 500.4050, L501.4020, L100.0100, L501.2450 ####[facility] [address] [place], [address] T PROT 7.6 g/dL Normal 6.4-8.2 [facility] Comment on above: Order Comment: 'TROP ' Serial specimen #1, #2 or #3: 1 Performed By: #### L 500.4050, L501.4020, L100.0100, L501.2450 ####[facility] [address] [place], [address] Urea nitrogen [Mass/Vol] 18 mg/dL Normal 7-18 [facility] Comment on above: Order Comment: 'TROP ' Serial specimen #1, #2 or #3: 1 Performed By: #### L 500.4050, L501.4020, L100.0100, L501.2450 ####[facility] [address] [place], [address] Emergency Department Summary on 06-07-2024 Emergency Department Summary Normal [facility] H AND P Exam - Hospitaliston 06-07-2024 H&P Exam - Hospitalist Normal [facility] L501.4020on 06-07-2024 TROPONIN-I HS 4 pg/mL Normal 3.0-54.0 [facility] Comment on above: Order Comment: 'TROP ' Serial specimen #1, #2 or #3: 1 Result Comment: Plea se Note: New Test Units and Gender Specific Reference Ranges. For more information see Policy Stat Procedure Heath High Sensitivity Troponin (TNIH) and attachments. Performed By: #### L 500.4050, L501.4020, L100.0100, L501.2450 ####[facility] [address] [place], [address] Lipaseon 06-07-2024 Lipase [Catalytic activity/Vol] 10 U/L Low 13-75 [facility] Comment on above: Order Comment: 'TROP ' Serial specimen #1, #2 or #3: 1 Result Comment: Plea se note:LIPASE revised reference range effective 22.New Lipase methodology. Expected to produce lower valuesthan the previous assay method.NEW Reference Range: 13 - 75 U/L Performed By: #### L 500.4050, L501.4020, L100.0100, L501.2450 ####[facility] [address] [place], [address] ,Urineon 06-07-2024 Beta HCG ( test) Ql (U) Negative Normal [facility] Comment on above: Order Comment: CLEAN CATCH Result Comment: Very dilute urine specimens, as indicated by a low specificgravity, may not contain sales representative printing paper levels of hCG.If is still suspected, a first morning urinespecimen should be collected 48 hours later and tested. Performed By: #### L 400.7600, L400.0001 ####[facility] [address] [place], [address] Urinalysis, Completeon 06-07 BACTERIA 0 SEEN Normal None Seen [facility] Comment on above: Order Comment: CLEAN CATCH Performed By: #### L 400.7600, L400.0001 ####[facility] [address] [place], [address] EPI,SQUAMOUS 0 SEEN Normal 5-10 [facility] Comment on above: Order Comment: CLEAN CATCH Performed By: #### L 400.7600, L400.0001 ####[facility] [address] [place], [address] Mucus Ql (Urine sed) 0 SEEN Normal [facility] Comment on above: Order Comment: CLEAN CATCH Performed By: #### L 400.7600, L400.0001 ####[facility] [address] [place], [address] RBC 0 SEEN Normal 0-5 [facility] Comment on above: Order Comment: CLEAN CATCH Performed By: #### L 400.7600, L400.0001 ####[facility] [address] [place], [address] WBC 0 SEEN Normal 0-5 [facility] Comment on above: Order Comment: CLEAN CATCH Performed By: #### L 400.7600, L400.0001 ####[facility] [address] 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 Re Gonzalez, STIVEN 05/17/2024 10:09 AM Signed JOSE 03/12/24 Joshua CAMPA 05/28/24 Josue Pt uses [facility] for supplies Has had loaner pump x3 months through [employer] and now has to return it or pay $3000 out of pocket. Advised pt she has to call [facility] and have them send us an order [...] updated if any issues. Jessica Guerrero APRN.CNP [facility] P[facility], Zelda Q 05/24/2024 1:01 PM Signed [...] not received any new order forms from [facility] or [employer]. Advised pt to reach out. 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 Normal [facility] 36on 05-06-2024 36 Medication: Skyrizi 150mg/ml Dosing Schedule: 150mg every 12 weeks Prior Authorization: Submitted date: 05.06.2024 PA reference #: [id number] Approval dates: 05.06.2024-08.27.2024 Caitie Light [facility] [phone] Normal [facility] 12 Lead EKGon 04-21-2024 12 Lead EKG Normal [facility] Acetone Serumon 04-21-2024 ACETONE SERUM Negative Normal NEG [facility] Comment on above: Performed By: #### L 501.6900, L500.2500 ####[facility] [address] [place], [address] Basic Metabolic Profile (BMP )on 04-21-2024 BUN/CRE 20.4 RATIO High 10-20 [facility] Comment on above: Performed By: #### L 501.6900, L500.2500 ####[facility] [address] [place], [address] CA,Total 7.3 mg/dL Low 8.5-10.1 [facility] Comment on above: Performed By: #### L 501.6900, L500.2500 ####[facility] [address] [place], [address] Chloride [Moles/Vol] 113 mmol/L High 98-107 [facility] Comment on above: Performed By: #### L 501.6900, L500.2500 ####[facility] [address] [place], [address] CO2 [Moles/Vol] 23.0 mmol/L Normal 21.0-32.0 [facility] Comment on above: Performed By: #### L 501.6900, L500.2500 ####[facility] [address] [place], [address] Creatinine [Mass/Vol] 0.68 mg/dL Normal 0.55-1.02 [facility] Comment on above: Result Comment: The validity of the calculated GFR GFRAA in patients over70 years has not been determined. Clinical correlation isessential. Performed By: #### L 501.6900, L500.2500 ####[facility] [address] [place], [address] ECRCL 127.57 ml/min Normal [facility] Comment on above: Performed By: #### L 501.6900, L500.2500 ####[facility] [address] [place], [address] EST GFR - AA 130 mL/min Normal >60 [facility] Comment on above: Result Comment: Afri can Ecuadorean GFR Calc Performed By: #### L 501.6900, L500.2500 ####[facility] [address] [place], [address] GAP 7 Normal 5-15 [facility] Comment on above: Performed By: #### L 501.6900, L500.2500 ####[facility] [address] [place], [address] GFR/1.73 sq M.predicted among non-blacks MDRD (S/P/Bld) [Vol rate/Area] 107 mL/min/{1.73_m2} Normal >60 [facility] Comment on above: Result Comment: Non- GFR Calc Performed By: #### L 501.6900, L500.2500 ####[facility] [address] [place], [address] Glucose [Mass/Vol] 173 mg/dL High 74-106 [facility] Comment on above: Result Comment: Fast ing Glucose result greater than or equal to 126 mg/dLsuggests DIABETES MELLITUS per A.D.A. criteria. Performed By: #### L 501.6900, L500.2500 ####[facility] [address] [place], [address] Potassium [Moles/Vol] 2.7 mmol/L Invalid Interpretation Code 3.5-5.1 [facility] Comment on above: Result Comment: Crit ical Result(s) Called at: 21:44:18 04/21/2024 by: DEX. Results read back by Faith Performed By: #### L 501.6900, L500.2500 ####[facility] [address] [place], [address] Sodium [Moles/Vol] 143 mmol/L Normal 136-145 [facility] Comment on above: Performed By: #### L 501.6900, L500.2500 ####[facility] [address] [place], [address] Urea nitrogen [Mass/Vol] 14 mg/dL Normal 7-18 [facility] Comment on above: Performed By: #### L 501.6900, L500.2500 ####[facility] [address] [place], [address] CBC W/Diff, Automatedon 03-29 Anisocytosis Ql (Bld) RARE Normal [facility] Comment on above: Performed By: #### L 100.0100 ####[facility] [address] [place], [address] PLT EST MOD DEC Normal ADEQ [facility] Comment on above: Performed By: #### L 100.0100 ####[facility] [address] [place], [address] RED CELL MORPH NORM C+C Normal NORM C C [facility] Comment on above: Performed By: #### L 100.0100 ####[facility] [address] [place], [address] Emergency Department Summary on 04-21-2024 Emergency Department Summary Normal [facility] Lipaseon 04-21-2024 Lipase [Catalytic activity/Vol] 14 U/L Normal 13-75 [facility] Comment on above: Result Comment: Sulma schmitz note:LIPASE revised reference range effective 22.New Lipase methodology. Expected to produce lower valuesthan the previous assay method.NEW Reference Range: 13 - 75 U/L Performed By: #### L 501.2450, L500.3400 ####[facility] [address] [place], [address] Liver Profileon 04-21-2024 Albumin [Mass/Vol] 3.0 g/dL Low 3.2-5.0 [facility] Comment on above: Performed By: #### L 501.2450, L500.3400 ####[facility] [address] [place], [address] ALK P 65 U/L Normal 45-117 [facility] Comment on above: Performed By: #### L 501.2450, L500.3400 ####[facility] [address] [place], [address] ALT [Catalytic activity/Vol] 15 U/L Normal 13-56 [facility] Comment on above: Performed By: #### L 501.2450, L500.3400 ####[facility] [address] [place], [address] AST [Catalytic activity/Vol] 10 U/L Low 15-37 [facility] Comment on above: Performed By: #### L 501.2450, L500.3400 ####[facility] [address] [place], [address] Bilirubin [Mass/Vol] 0.40 mg/dL Normal 0.20-1.00 [facility] Comment on above: Result Comment: For patients on eltrombopag therapy, use of Dimension Heath TBIL is not recommended. Performed By: #### L 501.2450, L500.3400 ####[facility] [address] [place], [address] Bilirubin.direct [Mass/Vol] 0.16 mg/dL Normal 0.00-0.30 [facility] Comment on above: Performed By: #### L 501.2450, L500.3400 ####[facility] [address] [place], [address] Globulin (S) [Mass/Vol] 2.6 g/dL Normal 2.2-4.2 [facility] Comment on above: Performed By: #### L 501.2450, L500.3400 ####[facility] [address] [place], [place], [id number] T PROT 5.6 g/dL Low 6.4-8.2 [facility] Comment on above: Performed By: #### L 501.2450, L500.3400 ####[facility] [address] [place], [place], [id number] ,Serum,hCG Quali.on 04-21-2024 HCG, SERUM QUAL Negative Normal [facility] Comment on above: Performed By: #### L 700.1670 ####[facility] [address] [place], [place], [id number] CNOVon 03-12-2024 CNOV Office Visit (ENDOIN ) KATHLEEN VILLA ([id number]) 1995 F T Date Time Provider Department [...] Hyperglycemia: Yes, but rare Type of Monitor: [employer] 630G/ Guardian Frequency of Monitorin-8 times a [...] 8.8 % Abnormal 4.3 - 5.6 % [facility] Comment on above: Location:[facility] [address] [place], [address] [place] [address], [place], [place], [address] Point of care (POC) Hemoglobin A1c (HGBA1C) [...] specific diabetes management situations: The POC device road crossing guard provides a normal range of 4.2% to 6.5% for the HGBA1C POC test. However, the [place] Diabetes [employer] guidelines indicate that patients with [...] Interpretation and review of laboratory results Abnormal [facility] CNPNon 03-02-2024 CNPN Telephone (ENDOIN) KATHLEEN VILLA ([id number]) 1995 F [facility] Date Time Provider Department 03/02/24 KVNG LEWIS [...] Date Reviewed: 12/13/2023 Reviewed by: Jessica Guerrero APRN.PRE PAROLE COUNSELING AIDE - Fully Assessed Reason for Visit: Forms [...] (post-traumatic stress disorder) [F43.10] 12/25/2012 DVT prophylaxis [FDM0606] 12/25/2012 09/04/2013 DISPOSITION AND FOLLOW-UP [V999.01] 12/25/2012 09/04/2013 HTN (hypertension) [I10] Hypertension in , antepartum [O16.9] 09/19/2013 01/08/2014 GBS (group B Streptococcus carrier), +RV cultur*11/11/2013 04/16/2014 [Z34.90] 11/22/2013 04/16/2014 Diabetes mellitus in (HCC) [O24.919] 12/25/2013 04/16/2014 Diabetic ketoacidosis without coma associated w*01/08/2014 02/04/2023 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] 01/08/2014 DVT prophylaxis [[id number]] 02/25/2014 04/16/2014 care and examination [Z39.2] 02/25/2014 [...] Encounter Status:Closed by ESTRELLITA MCCLENDON on 03/05/24 [facility] 02-14-2024 CNPN Telephone (ENDOIN) KATHLEEN VILLA ([id number]) 1995 [facility] Date Time Provider Department 02/14/24 KVNG LEWIS During your visit today, we recorded the following information about you: RamosJennifer 02/14/2024 1:51 PM Signed Patient stated that her 630G pump malfunctioned and she had to get a new one. Patient needs to now what settings to put the pump on. Patient can be reached at [phone] Estrellita Mcclendon RN 02/14/2024 4:43 PM Signed [...] Date Reviewed: 12/13/2023 Reviewed by: Jessica Guerrero APRN.PRE PAROLE COUNSELING AIDE - Fully Assessed Reason for Visit: machine [...] (post-traumatic stress disorder) [F43.10] 12/25/2012 DVT prophylaxis [[id number]] 12/25/2012 09/04/2013 DISPOSITION AND FOLLOW-UP [V999.01] 12/25/2012 09/04/2013 HTN (hypertension) [I10] Hypertension in , antepartum [O16.9] 09/19/2013 01/08/2014 GBS (group B Streptococcus carrier), +RV cultur*11/11/2013 04/16/2014 [Z34.90] 11/22/2013 04/16/2014 Diabetes mellitus in ([facility]) [O24.919] 12/25/2013 04/16/2014 Diabetic ketoacidosis without coma associated w*01/08/2014 02/04/2023 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] 01/08/2014 DVT prophylaxis [[id number]] 02/25/2014 04/16/2014 care and examination [Z39.2] 02/25/2014 [...] CNPNon 02-13-2024 CNPN Telephone (ENDOMN) KATHLEEN VILLA ([id number]) 1995 F [facility] Date Time Provider Department [...] MD Clinical Fellow PGY-4 Endocrinology and Metabolism [place] Allergies As of Date: 02/13/2024 Noted Allergy [...] Date Reviewed: 12/13/2023 Reviewed by: Jessica Guerrero APRN.PRE PAROLE COUNSELING AIDE - Fully Assessed Reason for Visit: Medication [...] (post-traumatic stress disorder) [F43.10] 12/25/2012 DVT prophylaxis [[id number]] 12/25/2012 09/04/2013 DISPOSITION AND FOLLOW-UP [V999.01] 12/25/2012 09/04/2013 HTN (hypertension) [I10] Hypertension in , antepartum [O16.9] 09/19/2013 01/08/2014 GBS (group B Streptococcus carrier), +RV cultur*11/11/2013 04/16/2014 [Z34.90] 11/22/2013 04/16/2014 Diabetes mellitus in (HCC) [O24.919] 12/25/2013 04/16/2014 Diabetic ketoacidosis without coma associated w*01/08/2014 02/04/2023 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] 01/08/2014 DVT prophylaxis [[id number]] 02/25/2014 04/16/2014 care and examination [Z39.2] 02/25/2014 [...] CNOV Office Visit (ENDOIN ) KATHLEEN VILLA ([id number]) 1995 F [facility] Date Time Provider Department 12/13/23 4:00 PM JESSICA GUERRERO During your visit today, we recorded the following information about you: Pulse Respiration Blood pressure Weight 80/minute 16/minute 139/87 77.1 kg Jessica Guerrero, PAIN MANAGEMENT NURSE PRACTITIONER.PRE PAROLE COUNSELING AIDE 12/13/2023 4:53 PM Signed ENDOCRINOLOGY AND METABOLISM [...] Other maternal great grandma I reviewed the Licensed Professional Counselor's notes with this visit for vital signs, [...] 7.1 % Abnormal 4.3 - 5.6 % [facility] Absolute lymphocyte countOrd ered By: Lin Johansen on 10-25-2023 Lymphocytes Auto (Unsp spec) [#/Vol] 2.23 10*3/uL 0.83-4.51 [facility] Automated lymphocyte count a s percentage of total leukocytesOrdered By: Lin Johansen on 10-25-2023 Lymphocytes/100 WBC Auto (Unsp spec) 17.4 % 19-41 [facility] Basophil percentageOrdered B y: Lin Johansen on 10-25-2023 Basophils/100 WBC (Bld) 0.8 % 0-1 [facility] Chloride [Moles/Vol] 106 mmol/L 98-107 [facility] Eosinophils/100 WBC (Bld) 0.7 % 0-5 [facility] Glucose [Mass/Vol] 255 mg/dL 74-106 [facility] Comment on above: Glucose result great er than or equal to 200 mg/dLsuggests DIABETES MELLITUS per A.D.A. criteria. Hemoglobin (Bld) [Mass/Vol] 14.3 g/dL 12.0-15.0 [facility] Monocytes/100 WBC (Bld) 3.7 % 0-10 [facility] Neutrophils (Bld) [#/Vol] 9.8 10*3/uL 2.0-7.7 [facility] Neutrophils/100 WBC (Bld) 76.5 % 47-70 [facility] Potassium [Moles/Vol] 4.3 mmol/L 3.5-5.1 [facility] Sodium [Moles/Vol] 137 mmol/L 136-145 [facility] WBC (Bld) [#/Vol] 12.8 10*3/uL 4.4-11.0 [facility] Determination of erythrocyte mean corpuscular volume (MCV)Ordered By: Lin Johansen on 10-25-2023 MCV (RBC) [Entitic vol] 89.6 fL 81-99 [facility] Erythrocyte distribution wid th ratioOrdered By: Lin Johansen on 10-25-2023 Erythrocyte distribution width (RBC) [Ratio] 13.9 % 11.6-14.6 [facility] Erythrocyte distribution wid th standard deviationOrdered By: Lin Johansen on 10-25-2023 Erythrocyte distribution width (RBC) [Entitic vol] 46.0 fL 35.1-43.9 [facility] Hematocrit Auto (Bld) [Volum e fraction]Ordered By: Lin Johansen on 10-25-2023 Hematocrit (Bld) [Volume fraction] 44.7 % 37-47 [facility] Immature granulocytes/100 WB C Auto (Bld)Ordered By: Lin Johansen on 10-25-2023 Immature granulocytes/100 WBC (Bld) 0.900 % 0.0-0.9 [facility] Comment on above: IG% - Immature Granu locytes (promyelocytes, myelocytes and metamyelocytes) > 1% indicates that a LEFT SHIFT is Present. Laboratory - Chemistry and C hemistry - challengeOrdered By: Lin Johansen on 10-25-2023 CO2 [Moles/Vol] 23.0 mmol/L 21.0-32.0 [facility] Urea nitrogen/Creatinine [Mass ratio] 21.5 mg/mg 10-20 [facility] Laboratory - Drug toxicology Ordered By: Lin Johansen on 10-25-2023 Amphetamines Ql (U) Negative <1000 ng/mL [facility] Benzodiazepines Ql (U) Negative < 200 ng/mL [facility] Cannabinoids Screen Ql (U) Positive < 50 ng/mL [facility] Cocaine Ql (U) Negative < 300 ng/mL [facility] Opiates Ql (U) Negative < 300 ng/mL [facility] Laboratory - Hematology and Cell countsOrdered By: Lin Johansen on 10-25-2023 MCH (RBC) [Entitic mass] 28.7 pg 27.0-32.0 [facility] MCHC (RBC) [Mass/Vol] 32.0 g/dL 32-36 [facility] Nucleated RBC/100 WBC (Bld) [Ratio] 0 % 0-5 [facility] Platelet mean volume (Bld) [Entitic vol] 11.9 fL 6.2-12.0 [facility] Platelets (Bld) [#/Vol] 171 10*3/uL 150-450 [facility] No Panel InformationOrdered By: Lin Johansen on 10-25-2023 Estimated Creatinine Clearance Calc 109.81 ml/min [facility] Estimated GFR (MDRD) Amer 110 mL/min >60 [facility] Comment on above: GFR Calc Estimated GFR (MDRD) Non-Af Amer 91 mL/min >60 [facility] Comment on above: Non- GFR Calc Ethyl Alcohol Level < 3.0 mg/dL [facility] Comment on above: The serum:whole bloo d ethanol ratio is approximately 1.14and varies slightly with hematocrit. Medical Alcohol reference interval and critical value innon-tolerant individuals; 50 - 100 Impairment 100 Intoxication 100 - 250 Severe Poisoning 250 - 400 Deep/possible fatal coma MDMA (Ecstasy) Screen Negative < 500 ng/mL [facility] Urine Barbiturates Screen Negative < 200 ng/mL [facility] Urine Drug Screen Comment [facility] Comment on above: CONFIRMATORY TESTING FOR ALL [...] Urine Methadone Screen Negative < 300 ng/mL [facility] RBC Auto (Bld) [#/Vol]Ordere d By: Lin Johansen on 10-25-2023 RBC (Bld) [#/Vol] 4.99 10*6/uL 4.2-5.4 [facility] Serum or plasma calcium milli urement (mass/volume)Ordered By: Lin Johansen on 10-25-2023 Calcium [Mass/Vol] 9.0 mg/dL 8.5-10.1 [facility] Serum or plasma choriogonado tropin detectionOrdered By: Lin Johansen on 10-25-2023 HCG ( test) Ql Negative [facility] Serum or plasma creatinine m easurement (mass/volume)Ordered By: Lin Johansen on 10-25-2023 Creatinine [Mass/Vol] 0.79 mg/dL 0.55-1.02 [facility] Comment on above: The validity of the calculated GFR & GFRAA in patients over 70 years has not been determined. Clinical correlation is essential. Serum or plasma urea nitroge n measurement (mass/volume)Ordered By: Lin Johansen on 10-25-2023 Urea nitrogen [Mass/Vol] 17 mg/dL 7-18 [facility] Thin prep Papanicolaou smear with manual screeningOrdered By: Lin Johansen on 10-25-2023 Thin prep Papanicolaou smear with manual screening 60 mg/dL 74-106 [facility] Comment on above: MANAGEMENT OF PATIEN T CARE PER NURSING PROTOCOL Thin prep Papanicolaou smear with manual screening 8 5-15 [facility] Urine phencyclidine (PCP) de tectionOrdered By: Lin Johansen on 10-25-2023 Phencyclidine Ql (U) Negative < 25 ng/mL [facility] Absolute lymphocyte countOrd ered By: Vita Jefferson on 10-18-2023 Lymphocytes Auto (Unsp spec) [#/Vol] 2.87 10*3/uL 0.83-4.51 [facility] Automated lymphocyte count a s percentage of total leukocytesOrdered By: Vita Jefferson on 10-18-2023 Lymphocytes/100 WBC Auto (Unsp spec) 32.5 % 19-41 [facility] Basophil percentageOrdered B y: Vita Jefferson on 10-18-2023 Basophils/100 WBC (Bld) 0.3 % 0-1 [facility] Chloride [Moles/Vol] 110 mmol/L 98-107 [facility] Eosinophils/100 WBC (Bld) 1.0 % 0-5 [facility] Glucose [Mass/Vol] 227 mg/dL 74-106 [facility] Comment on above: Glucose result great er than or equal to 200 mg/dLsuggests DIABETES MELLITUS per A.D.A. criteria. Hemoglobin (Bld) [Mass/Vol] 12.0 g/dL 12.0-15.0 [facility] Monocytes/100 WBC (Bld) 6.0 % 0-10 [facility] Neutrophils (Bld) [#/Vol] 5.3 10*3/uL 2.0-7.7 [facility] Neutrophils/100 WBC (Bld) 59.5 % 47-70 [facility] Potassium [Moles/Vol] 4.1 mmol/L 3.5-5.1 [facility] Sodium [Moles/Vol] 138 mmol/L 136-145 [facility] WBC (Bld) [#/Vol] 8.8 10*3/uL 4.4-11.0 [facility] Determination of erythrocyte mean corpuscular volume (MCV)Ordered By: Vita Jefferson on 10-18-2023 MCV (RBC) [Entitic vol] 89.4 fL 81-99 [facility] Erythrocyte distribution wid th ratioOrdered By: Vita Jefferson on 10-18-2023 Erythrocyte distribution width (RBC) [Ratio] 13.2 % 11.6-14.6 [facility] Erythrocyte distribution wid th standard deviationOrdered By: Vita Jefferson on 10-18-2023 Erythrocyte distribution width (RBC) [Entitic vol] 43.0 fL 35.1-43.9 [facility] Hematocrit Auto (Bld) [Volum e fraction]Ordered By: Vita Jefferson on 10-18-2023 Hematocrit (Bld) [Volume fraction] 36.4 % 37-47 [facility] Immature granulocytes/100 WB C Auto (Bld)Ordered By: Vita Jefferson on 10-18-2023 Immature granulocytes/100 WBC (Bld) 0.700 % 0.0-0.9 [facility] Comment on above: IG% - Immature Granu locytes (promyelocytes, myelocytes and metamyelocytes) > 1% indicates that a LEFT SHIFT is Present. Laboratory - Chemistry and C hemistry - challengeOrdered By: Vita Jefferson on 10-18-2023 CO2 [Moles/Vol] 25.0 mmol/L 21.0-32.0 [facility] Urea nitrogen/Creatinine [Mass ratio] 24.0 mg/mg 10-20 [facility] Laboratory - Hematology and Cell countsOrdered By: Vita Jefferson on 10-18-2023 MCH (RBC) [Entitic mass] 29.5 pg 27.0-32.0 [facility] MCHC (RBC) [Mass/Vol] 33.0 g/dL 32-36 [facility] Nucleated RBC/100 WBC (Bld) [Ratio] 0 % 0-5 [facility] Platelet mean volume (Bld) [Entitic vol] 12.1 fL 6.2-12.0 [facility] Platelets (Bld) [#/Vol] 111 10*3/uL 150-450 [facility] No Panel InformationOrdered By: Vita Jefferson on 10-18-2023 Estimated Creatinine Clearance Calc 129.48 ml/min [facility] Estimated GFR (MDRD) Amer 135 mL/min >60 [facility] Comment on above: GFR Calc Estimated GFR (MDRD) Non-Af Amer 111 mL/min >60 [facility] Comment on above: Non- GFR Calc RBC Auto (Bld) [#/Vol]Ordere d By: Vita Jefferson on 10-18-2023 RBC (Bld) [#/Vol] 4.07 10*6/uL 4.2-5.4 [facility] Serum or plasma calcium milli urement (mass/volume)Ordered By: Vita Jefferson on 10-18-2023 Calcium [Mass/Vol] 7.6 mg/dL 8.5-10.1 [facility] Serum or plasma creatinine m easurement (mass/volume)Ordered By: Vita Jefferson on 10-18-2023 Creatinine [Mass/Vol] 0.67 mg/dL 0.55-1.02 [facility] Comment on above: The validity of the calculated GFR & GFRAA in patients over 70 years has not been determined. Clinical correlation is essential. Serum or plasma urea nitroge n measurement (mass/volume)Ordered By: Vita Jefferson on 10-18-2023 Urea nitrogen [Mass/Vol] 16 mg/dL 7-18 [facility] Thin prep Papanicolaou smear with manual screeningOrdered By: Vita Jefferson on 10-18-2023 Thin prep Papanicolaou smear with manual screening 3 5-15 [facility] Absolute lymphocyte countOrd ered By: Alexandro Garces on 10-17-2023 Lymphocytes Auto (Unsp spec) [#/Vol] 1.06 10*3/uL 0.83-4.51 [facility] Automated lymphocyte count a s percentage of total leukocytesOrdered By: Alexandro Garces on 10-17-2023 Lymphocytes/100 WBC Auto (Unsp spec) 7.8 % 19-41 [facility] Basophil percentageOrdered B y: Alexandro Garces on 10-17-2023 Basophils/100 WBC (Bld) 0.4 % 0-1 [facility] Chloride [Moles/Vol] 98 mmol/L 98-107 [facility] Eosinophils/100 WBC (Bld) 0.1 % 0-5 [facility] Glucose [Mass/Vol] 534 mg/dL 74-106 [facility] Comment on above: Critical Result(s) C alled at: 10:55:26 10/17/2023 by: Nan Bray. Results read back by same.Glucose result greater than or equal to 200 mg/dLsuggests DIABETES MELLITUS per A.D.A. criteria. Hemoglobin (Bld) [Mass/Vol] 13.6 g/dL 12.0-15.0 [facility] Monocytes/100 WBC (Bld) 2.4 % 0-10 [facility] Neutrophils (Bld) [#/Vol] 12.0 10*3/uL 2.0-7.7 [facility] Neutrophils/100 WBC (Bld) 88.4 % 47-70 [facility] Potassium [Moles/Vol] 4.8 mmol/L 3.5-5.1 [facility] Sodium [Moles/Vol] 132 mmol/L 136-145 [facility] WBC (Bld) [#/Vol] 13.6 10*3/uL 4.4-11.0 [facility] Determination of erythrocyte mean corpuscular volume (MCV)Ordered By: Alexandro Garces on 10-17-2023 MCV (RBC) [Entitic vol] 90.2 fL 81-99 [facility] Erythrocyte distribution wid th ratioOrdered By: Alexandro Garces on 10-17-2023 Erythrocyte distribution width (RBC) [Ratio] 13.1 % 11.6-14.6 [facility] Erythrocyte distribution wid th standard deviationOrdered By: Alexandro Garces on 10-17-2023 Erythrocyte distribution width (RBC) [Entitic vol] 43.1 fL 35.1-43.9 [facility] Hematocrit Auto (Bld) [Volum e fraction]Ordered By: Alexandro Garces on 10-17-2023 Hematocrit (Bld) [Volume fraction] 42.5 % 37-47 [facility] Immature granulocytes/100 WB C Auto (Bld)Ordered By: Alexandro Garces on 10-17-2023 Immature granulocytes/100 WBC (Bld) 0.900 % 0.0-0.9 [facility] Comment on above: IG% - Immature Granu locytes (promyelocytes, myelocytes and metamyelocytes) > 1% indicates that a LEFT SHIFT is Present. Laboratory - Chemistry and C hemistry - challengeOrdered By: Alexanrdo Garces on 10-17-2023 CO2 [Moles/Vol] 16.0 mmol/L 21.0-32.0 [facility] Urea nitrogen/Creatinine [Mass ratio] 18.6 mg/mg -20 [facility] Laboratory - Hematology and Cell countsOrdered By: Alexandro Garces on 10-17-2023 MCH (RBC) [Entitic mass] 28.9 pg 27.0-32.0 [facility] MCHC (RBC) [Mass/Vol] 32.0 g/dL 32-36 [facility] Nucleated RBC/100 WBC (Bld) [Ratio] 0 % 0-5 [facility] Platelet mean volume (Bld) [Entitic vol] 12.2 fL 6.2-12.0 [facility] Platelets (Bld) [#/Vol] 138 10*3/uL 150-450 [facility] No Panel InformationOrdered By: Alexandro Garces on 10-17-2023 Estimated Creatinine Clearance Calc 73.52 ml/min [facility] Estimated GFR (MDRD) Amer 70 mL/min >60 [facility] Comment on above: GFR Calc Estimated GFR (MDRD) Non-Af Amer 58 mL/min >60 [facility] Comment on above: Non- GFR Calc RBC Auto (Bld) [#/Vol]Ordere d By: Alexandro Garces on 10-17-2023 RBC (Bld) [#/Vol] 4.71 10*6/uL 4.2-5.4 [facility] Serum or plasma acetone milli urement (mass/volume)Ordered By: Alexandro Garces on 10-17-2023 Acetone [Mass/Vol] MODERATE NEG [facility] Serum or plasma calcium milli urement (mass/volume)Ordered By: Alexandro Garces on 10-17-2023 Calcium [Mass/Vol] 9.1 mg/dL 8.5-10.1 [facility] Serum or plasma creatinine m easurement (mass/volume)Ordered By: Alexandro Garces on 10-17-2023 Creatinine [Mass/Vol] 1.18 mg/dL 0.55-1.02 [facility] Comment on above: The validity of the calculated GFR & GFRAA in patients over 70 years has not been determined. Clinical correlation is essential. Serum or plasma urea nitroge n measurement (mass/volume)Ordered By: Alexandro Garces on 10-17-2023 Urea nitrogen [Mass/Vol] 22 mg/dL 7-18 [facility] Thin prep Papanicolaou smear with manual screeningOrdered By: Vita Jefferson on 10-17-2023 Thin prep Papanicolaou smear with manual screening 293 mg/dL 74-106 [facility] Comment on above: MANAGEMENT OF PATIEN T CARE PER NURSING PROTOCOL Thin prep Papanicolaou smear with manual screeningOrdered By: Alexandro Garces on 10-17-2023 Thin prep Papanicolaou smear with manual screening 18 5-15 [facility] Absolute lymphocyte countOrd ered By: Olvin Ibarra on 09-25-2023 Lymphocytes Auto (Unsp spec) [#/Vol] 0.95 10*3/uL 0.83-4.51 [facility] Automated lymphocyte count a s percentage of total leukocytesOrdered By: Olvin Ibarra on 09-25-2023 Lymphocytes/100 WBC Auto (Unsp spec) 15.8 % 19-41 [facility] Basophil percentageOrdered B y: Olvin Ibarra on 09-25-2023 Basophils/100 WBC (Bld) 0.3 % 0-1 [facility] Chloride [Moles/Vol] 106 mmol/L 98-107 [facility] Eosinophils/100 WBC (Bld) 0.2 % 0-5 [facility] Glucose [Mass/Vol] 331 mg/dL 74-106 [facility] Comment on above: Glucose result great er than or equal to 200 mg/dLsuggests DIABETES MELLITUS per A.D.A. criteria. Hemoglobin (Bld) [Mass/Vol] 13.2 g/dL 12.0-15.0 [facility] Monocytes/100 WBC (Bld) 12.0 % 0-10 [facility] Neutrophils (Bld) [#/Vol] 4.2 10*3/uL 2.0-7.7 [facility] Neutrophils/100 WBC (Bld) 70.4 % 47-70 [facility] Potassium [Moles/Vol] 3.7 mmol/L 3.5-5.1 [facility] Sodium [Moles/Vol] 135 mmol/L 136-145 [facility] WBC (Bld) [#/Vol] 6.0 10*3/uL 4.4-11.0 [facility] Blood platelet adequacy dete ction by light microscopyOrdered By: Olvin Ibarra on 09-25-2023 Platelets LM Ql (Bld) MOD DEC ADEQ [facility] Determination of erythrocyte mean corpuscular volume (MCV)Ordered By: Olvin Ibarra on 09-25-2023 MCV (RBC) [Entitic vol] 90.2 fL 81-99 [facility] Erythrocyte distribution wid th ratioOrdered By: Olvin Ibarra on 09-25-2023 Erythrocyte distribution width (RBC) [Ratio] 13.8 % 11.6-14.6 [facility] Erythrocyte distribution wid th standard deviationOrdered By: Olvin Ibarra on 09-25-2023 Erythrocyte distribution width (RBC) [Entitic vol] 45.7 fL 35.1-43.9 [facility] Hematocrit Auto (Bld) [Volum e fraction]Ordered By: Olvin Ibarra on 09-25-2023 Hematocrit (Bld) [Volume fraction] 41.6 % 37-47 [facility] Immature granulocytes/100 WB C Auto (Bld)Ordered By: Olvin Ibarra on 09-25-2023 Immature granulocytes/100 WBC (Bld) 1.300 % 0.0-0.9 [facility] Comment on above: IG% - Immature Granu locytes (promyelocytes, myelocytes and metamyelocytes) > 1% indicates that a LEFT SHIFT is Present. Laboratory - Chemistry and C hemistry - challengeOrdered By: Olvin Ibarra on 09-25-2023 CO2 [Moles/Vol] 18.0 mmol/L 21.0-32.0 [facility] Urea nitrogen/Creatinine [Mass ratio] 15.6 mg/mg 10-20 [facility] Laboratory - Hematology and Cell countsOrdered By: Olvin Ibarra on 09-25-2023 MCH (RBC) [Entitic mass] 28.6 pg 27.0-32.0 [facility] MCHC (RBC) [Mass/Vol] 31.7 g/dL 32-36 [facility] Nucleated RBC/100 WBC (Bld) [Ratio] 0 % 0-5 [facility] Platelets (Bld) [#/Vol] 76 10*3/uL 150-450 [facility] No Panel InformationOrdered By: Olvin Ibarra on 09-25-2023 Estimated Creatinine Clearance Calc 96.39 ml/min [facility] Estimated GFR (MDRD) Amer 96 mL/min >60 [facility] Comment on above: GFR Calc Estimated GFR (MDRD) Non-Af Amer 79 mL/min >60 [facility] Comment on above: Non- GFR Calc Platelet mean volume Dong-Ec ker (Bld) [Entitic vol]Ordered By: Olvin Ibarra on 09-25-2023 Platelet mean volume (Bld) [Entitic vol] 12.8 fL 6.2-12.0 [facility] RBC Auto (Bld) [#/Vol]Ordere d By: Olvin Ibarra on 09-25-2023 RBC (Bld) [#/Vol] 4.61 10*6/uL 4.2-5.4 [facility] Serum or plasma calcium milli urement (mass/volume)Ordered By: Olvin Ibarra on 09-25-2023 Calcium [Mass/Vol] 8.4 mg/dL 8.5-10.1 [facility] Serum or plasma creatinine m easurement (mass/volume)Ordered By: Olvin Ibarra on 09-25-2023 Creatinine [Mass/Vol] 0.90 mg/dL 0.55-1.02 [facility] Comment on above: The validity of the calculated GFR & GFRAA in patients over 70 years has not been determined. Clinical correlation is essential. Serum or plasma urea nitroge n measurement (mass/volume)Ordered By: Olvin Ibarra on 09-25-2023 Urea nitrogen [Mass/Vol] 14 mg/dL 7-18 [facility] Thin prep Papanicolaou smear with manual screeningOrdered By: Olvin Stacey on 09-25-2023 Thin prep Papanicolaou smear with manual screening 11 5-15 [facility] Laboratory - Microbiology an d Antimicrobial susceptibilityOrdered By: Siddharth Michelle on 09-24-2023 SARS-CoV-2 (COVID-19) RNA DANIEL+probe Ql (Unsp spec) Influenzae B [facility] Absolute lymphocyte countOrd ered By: Rm Chirinos on 09-20-2023 Lymphocytes Auto (Unsp spec) [#/Vol] 0.75 10*3/uL 0.83-4.51 [facility] Automated lymphocyte count a s percentage of total leukocytesOrdered By: Rm Chirinos on 09-20-2023 Lymphocytes/100 WBC Auto (Unsp spec) 4.6 % 19-41 [facility] Base excessOrdered By: Rm siddiqi on 09-20-2023 Base excess Calc (BldV) [Moles/Vol] -5 mmol/L -1.0-3.5 [facility] Basophil percentageOrdered B y: Rm Chirinos on 09-20-2023 Basophil percentage 0 SEEN /hpf 0-5 [facility] Basophils/100 WBC (Bld) 0.4 % 0-1 [facility] Chloride [Moles/Vol] 102 mmol/L 98-107 [facility] Eosinophils/100 WBC (Bld) 0.0 % 0-5 [facility] Glucose [Mass/Vol] 534 mg/dL 74-106 [facility] Comment on above: Critical Result(s) C alled at: 12:17:31 09/20/2023 by: Reid Rogers. Colin Lo RN (ER). Results read back by same.Glucose result greater than or equal to 200 mg/dLsuggests DIABETES MELLITUS per A.D.A. criteria. Hemoglobin (Bld) [Mass/Vol] 13.4 g/dL 12.0-15.0 [facility] Monocytes/100 WBC (Bld) 2.8 % 0-10 [facility] Neutrophils (Bld) [#/Vol] 14.7 10*3/uL 2.0-7.7 [facility] Neutrophils/100 WBC (Bld) 91.2 % 47-70 [facility] Potassium [Moles/Vol] 4.9 mmol/L 3.5-5.1 [facility] Sodium [Moles/Vol] 132 mmol/L 136-145 [facility] WBC (Bld) [#/Vol] 16.2 10*3/uL 4.4-11.0 [facility] Bilirubin Test strip Ql (U)O rdered By: Rm Chirinos on 09-20-2023 Bilirubin Ql (U) Negative Negative [facility] CO2 (BldV) [Moles/Vol]Ordere d By: Rm Chirinos on 09-20-2023 CO2 [Moles/Vol] 22 mmol/L 23-33 [facility] Determination of erythrocyte mean corpuscular volume (MCV)Ordered By: Rm Chirinos on 09-20-2023 MCV (RBC) [Entitic vol] 90.3 fL 81-99 [facility] Erythrocyte distribution wid th ratioOrdered By: Rm Chirinos on 09-20-2023 Erythrocyte distribution width (RBC) [Ratio] 13.5 % 11.6-14.6 [facility] Erythrocyte distribution wid th standard deviationOrdered By: Rmej Chirinos on 09-20-2023 Erythrocyte distribution width (RBC) [Entitic vol] 44.9 fL 35.1-43.9 [facility] Hematocrit Auto (Bld) [Volum e fraction]Ordered By: Rm Chirinos on 09-20-2023 Hematocrit (Bld) [Volume fraction] 41.8 % 37-47 [facility] Immature granulocytes/100 WB C Auto (Bld)Ordered By: Rm Chirinos on 09-20-2023 Immature granulocytes/100 WBC (Bld) 1.000 % 0.0-0.9 [facility] Comment on above: IG% - Immature Granu locytes (promyelocytes, myelocytes and metamyelocytes) > 1% indicates that a LEFT SHIFT is Present. Ketones Test strip Ql (U)Ord ered By: Rm Chirinos on 09-20-2023 Ketones Ql (U) 150 mg/dl Negative [facility] Comment on above: CRITICAL VALUE *HCRI TICAL VALUE VERIFIED. CALLED TO WILFREDO SALEEM (ER)09/20/23 1215 Saravan[address]ry.RESULTS READ BACK BY SAME. Laboratory - Chemistry and C hemistry - challengeOrdered By: Rm Chirinos on 09-20-2023 CO2 [Moles/Vol] 21.0 mmol/L 21.0-32.0 [facility] Urea nitrogen/Creatinine [Mass ratio] 19.1 mg/mg 10-20 [facility] Laboratory - Hematology and Cell countsOrdered By: Rm Chirinos on 09-20-2023 MCH (RBC) [Entitic mass] 28.9 pg 27.0-32.0 [facility] MCHC (RBC) [Mass/Vol] 32.1 g/dL 32-36 [facility] Nucleated RBC/100 WBC (Bld) [Ratio] 0 % 0-5 [facility] Platelets (Bld) [#/Vol] 111 10*3/uL 150-450 [facility] Mucus LM Ql (Urine sed)Order ed By: Rm Chirinos on 09-20-2023 Mucus Ql (Urine sed) 0 SEEN /hpf [facility] Nitrite Test strip Ql (U)Ord ered By: Rm Chirions on 09-20-2023 Nitrite Ql (U) Negative Negative [facility] No Panel InformationOrdered By: Rm Chirinos on 09-20-2023 Blood Gas Sample Site Not entered [facility] Blood Gas Specimen Type ISABELLE [facility] Oxygen Delivery Device Room Air [facility] Urine RBC 0 SEEN /hpf 0-5 [facility] Estimated Creatinine Clearance Calc 93.93 ml/min [facility] Estimated GFR (MDRD) Amer 85 mL/min >60 [facility] Comment on above: GFR Calc Estimated GFR (MDRD) Non-Af Amer 70 mL/min >60 [facility] Comment on above: Non- GFR Calc PCO2 venousOrdered By: Rm siddiqi on 09-20-2023 CO2 (BldV) [Partial pressure] 37.3 mm[Hg] 41-51 [facility] PO2 venousOrdered By: Rm sahni on 09-20-2023 Oxygen (BldV) [Partial pressure] 64 mm[Hg] 25-40 [facility] Platelet mean volume Dong-Ec ker (Bld) [Entitic vol]Ordered By: Rm Chirinos on 09-20-2023 Platelet mean volume (Bld) [Entitic vol] 13.3 fL 6.2-12.0 [facility] Protein Test strip Ql (U)Ord ered By: Rm Chirinos on 09-20-2023 Protein Ql (U) 15 mg/dl Negative [facility] RBC Auto (Bld) [#/Vol]Ordere d By: Rm Chirinos on 09-20-2023 RBC (Bld) [#/Vol] 4.63 10*6/uL 4.2-5.4 [facility] Serum or plasma calcium milli urement (mass/volume)Ordered By: Rm Chirinos on 09-20-2023 Calcium [Mass/Vol] 8.8 mg/dL 8.5-10.1 [facility] Serum or plasma creatinine m easurement (mass/volume)Ordered By: Rm Chirinos on 09-20-2023 Creatinine [Mass/Vol] 1.00 mg/dL 0.55-1.02 [facility] Comment on above: The validity of the calculated GFR & GFRAA in patients over 70 years has not been determined. Clinical correlation is essential. Serum or plasma urea nitroge n measurement (mass/volume)Ordered By: Rm Chirinos on 09-20-2023 Urea nitrogen [Mass/Vol] 19 mg/dL 7-18 [facility] Squamous epithelial cells de tection in urine sediment by light microscopyOrdered By: Rm Chirinos on 09-20-2023 Epithelial cells.squamous LM Ql (Urine sed) 0-5 SEEN /hpf 5-10 [facility] Thin prep Papanicolaou smear with manual screeningOrdered By: Rm Chirinos on 09-20-2023 Thin prep Papanicolaou smear with manual screening 264 mg/dL 74-106 [facility] Comment on above: MANAGEMENT OF PATIEN T CARE PER NURSING PROTOCOL Thin prep Papanicolaou smear with manual screening 9 5-15 [facility] Urine blood detectionOrdered By: Rm Chirinos on 09-20-2023 RBC Ql (U) Negative Negative [facility] Urine clarityOrdered By: Rm Chirinos on 09-20-2023 Clarity (U) Sl. Cloudy Clear [facility] Urine color determinationOrd ered By: Rm Chirinos on 09-20-2023 Color (U) Yellow Yellow [facility] Urine glucose detectionOrder ed By: Rm Chirinos on 09-20-2023 Glucose Ql (U) 1000 mg/dl Normal [facility] Urine leukocyte esterase det ection by dipstickOrdered By: Rm Chirinos on 09-20-2023 Leukocyte esterase Test strip Ql (U) Negative Negative [facility] Urine pHOrdered By: Rm pagan on 09-20-2023 pH (U) 6.0 [pH] 5.0 - 8.0 [facility] Urine sediment bacteria coun t by microscopy (number/high power field)Ordered By: Rm Chirinos on 09-20-2023 Bacteria LM.HPF (Urine sed) [#/Area] 0 /[HPF] None Seen [facility] Urine specific gravity measu rementOrdered By: Rm Chirinos on 09-20-2023 Specific gravity (U) [Rel density] 1.010 1.002-1.030 [facility] Urine urobilinogen measureme ntOrdered By: Rm Chirinos on 09-20-2023 Urobilinogen Ql (U) Normal mg/dl Normal [facility] Venous blood bicarbonate penelope surementOrdered By: Rm Chirinos on 09-20-2023 HCO3 (BldCoV) [Moles/Vol] 21 mmol/L 22-26 [facility] Venous blood oxygen saturati on (pure mass fraction)Ordered By: Rm Chirinos on 09-20-2023 SaO2% (BldV) [Pure mass fraction] 91 % 50-70 [facility] Venous blood pH measurementO rdered By: Rm Chirinos on 09-20-2023 pH (BldV) 7.35 [pH] 7.32-7.42 [facility] Absolute lymphocyte countOrd ered By: Greg Philip on 09-06-2023 Lymphocytes Auto (Unsp spec) [#/Vol] 2.47 10*3/uL 0.83-4.51 [facility] Basophil percentageOrdered B y: Greg Philip on 09-06-2023 Basophil percentage 0-5 SEEN /hpf 0-5 [facility] Basophils/100 WBC (Bld) 0.4 % 0-1 [facility] Bilirubin [Mass/Vol] 0.50 mg/dL 0.20-1.00 [facility] Comment on above: For patients on eltr ombopag therapy, use of Dimension Heath TBIL is not recommended. Chloride [Moles/Vol] 111 mmol/L 98-107 [facility] Eosinophils/100 WBC (Bld) 0.7 % 0-5 [facility] Glucose [Mass/Vol] 101 mg/dL 74-106 [facility] Comment on above: Fasting Glucose resu lt from 100 to 125 mg/dL suggests IMPAIRED HOMEOSTASIS per A.D.A. criteria. Neutrophils (Bld) [#/Vol] 6.5 10*3/uL 2.0-7.7 [facility] Neutrophils/100 WBC (Bld) 67.1 % 47-70 [facility] Potassium [Moles/Vol] 3.9 mmol/L 3.5-5.1 [facility] Protein [Mass/Vol] 6.8 g/dL 6.4-8.2 [facility] Sodium [Moles/Vol] 142 mmol/L 136-145 [facility] WBC (Bld) [#/Vol] 9.6 10*3/uL 4.4-11.0 [facility] Beta hCG serum qualOrdered B y: Greg Philip on 09-06-2023 Beta HCG ( test) Ql Negative [facility] Bilirubin Test strip Ql (U)O rdered By: Greg Philip on 09-06-2023 Bilirubin Ql (U) Negative Negative [facility] Blood erythrocytes count (nu mber/volume)Ordered By: Greg Philip on 09-06-2023 RBC (Bld) [#/Vol] 4.34 10*6/uL 4.2-5.4 [facility] Blood hemoglobin measurement (mass/volume)Ordered By: Greg Philip on 09-06-2023 Hemoglobin (Bld) [Mass/Vol] 12.7 g/dL 12.0-15.0 [facility] Blood lymphocytes/100 leukoc ytesOrdered By: Greg Philip on 09-06-2023 Lymphocytes/100 WBC (Bld) 25.6 % 19-41 [facility] Blood monocytes/100 leukocyt esOrdered By: Greg Philip on 09-06-2023 Monocytes/100 WBC (Bld) 5.7 % 0-10 [facility] Blood platelet mean volumeOr dered By: Greg Philip on 09-06-2023 Platelet mean volume (Bld) [Entitic vol] 12.4 fL 6.2-12.0 [facility] Determination of erythrocyte mean corpuscular volume (MCV)Ordered By: Greg Philip on 09-06-2023 MCV (RBC) [Entitic vol] 91.0 fL 81-99 [facility] Hematocrit Auto (Bld) [Volum e fraction]Ordered By: Greg Philip on 09-06-2023 Hematocrit (Bld) [Volume fraction] 39.5 % 37-47 [facility] Ketones Test strip Ql (U)Ord ered By: Greg Philip on 09-06-2023 Ketones Ql (U) 5 mg/dl Negative [facility] Laboratory - Chemistry and C hemistry - challengeOrdered By: Greg Philip on 09-06-2023 ALP [Catalytic activity/Vol] 69 U/L 45-117 [facility] ALT [Catalytic activity/Vol] 47 U/L 13-56 [facility] CO2 [Moles/Vol] 27.0 mmol/L 21.0-32.0 [facility] Globulin (S) [Mass/Vol] 3.2 g/dL 2.2-4.2 [facility] Urea nitrogen/Creatinine [Mass ratio] 22.9 mg/mg 10-20 [facility] Laboratory - Hematology and Cell countsOrdered By: Greg Philip on 09-06-2023 Erythrocyte distribution width (RBC) [Entitic vol] 45.5 fL 35.1-43.9 [facility] Erythrocyte distribution width (RBC) [Ratio] 13.6 % 11.6-14.6 [facility] Immature granulocytes/100 WBC (Bld) 0.500 % 0.0-0.9 [facility] Comment on above: IG% - Immature Granu locytes (promyelocytes, myelocytes and metamyelocytes) > 1% indicates that a LEFT SHIFT is Present. MCH (RBC) [Entitic mass] 29.3 pg 27.0-32.0 [facility] Nucleated RBC/100 WBC (Bld) [Ratio] 0 % 0-5 [facility] MCHC Auto (RBC) [Mass/Vol]Or dered By: Greg Philip on 09-06-2023 MCHC (RBC) [Mass/Vol] 32.2 g/dL 32-36 [facility] Mucus LM Ql (Urine sed)Order ed By: Greg Philip on 09-06-2023 Mucus Ql (Urine sed) 1+ /hpf [facility] Nitrite Test strip Ql (U)Ord ered By: Greg Philip on 09-06-2023 Nitrite Ql (U) Negative Negative [facility] No Panel InformationOrdered By: Greg Philip on 09-06-2023 Estimated Creatinine Clearance Calc 131.44 ml/min [facility] Estimated GFR (MDRD) Amer 137 mL/min >60 [facility] Comment on above: GFR Calc Estimated GFR (MDRD) Non-Af Amer 113 mL/min >60 [facility] Comment on above: Non- GFR Calc Platelets bldOrdered By: Allyn Philip on 09-06-2023 Platelets (Bld) [#/Vol] 144 10*3/uL 150-450 [facility] Protein Test strip Ql (U)Ord ered By: Greg Philip on 09-06-2023 Protein Ql (U) 15 mg/dl Negative [facility] Serum or plasma albumin milli urement (mass/volume)Ordered By: Greg Philip on 09-06-2023 Albumin [Mass/Vol] 3.6 g/dL 3.2-5.0 [facility] Serum or plasma albumin/glob ulin mass ratioOrdered By: Greg Philip on 09-06-2023 Albumin/Globulin [Mass ratio] 1.1 {ratio} 0.9-2.4 [facility] Serum or plasma calcium milli urement (mass/volume)Ordered By: Greg Philip on 09-06-2023 Calcium [Mass/Vol] 8.5 mg/dL 8.5-10.1 [facility] Serum or plasma creatinine m easurement (mass/volume)Ordered By: Greg Philip on 09-06-2023 Creatinine [Mass/Vol] 0.66 mg/dL 0.55-1.02 [facility] Comment on above: The validity of the calculated GFR & GFRAA in patients over 70 years has not been determined. Clinical correlation is essential. Serum or plasma urea nitroge n measurement (mass/volume)Ordered By: Greg Philip on 09-06-2023 Urea nitrogen [Mass/Vol] 15 mg/dL 7-18 [facility] Squamous epithelial cells de tection in urine sediment by light microscopyOrdered By: Greg Philip on 09-06-2023 Epithelial cells.squamous LM Ql (Urine sed) 5-10 SEEN /hpf 5-10 [facility] Thin prep Papanicolaou smear with manual screeningOrdered By: Greg Philip on 09-06-2023 Thin prep Papanicolaou smear with manual screening 28 U/L 15-37 [facility] Thin prep Papanicolaou smear with manual screening 4 5-15 [facility] Urine blood detectionOrdered By: Greg Philip on 09-06-2023 RBC Ql (U) Negative Negative [facility] RBC Ql (U) 0 SEEN /hpf 0-5 [facility] Urine clarityOrdered By: Allyn Philip on 09-06-2023 Clarity (U) Clear Clear [facility] Urine color determinationOrd ered By: Greg Philip on 09-06-2023 Color (U) Yellow Yellow [facility] Urine glucose detectionOrder ed By: Greg Philip on 09-06-2023 Glucose Ql (U) 50 mg/dl Normal [facility] Urine leukocyte esterase det ection by dipstickOrdered By: Greg Philip on 09-06-2023 Leukocyte esterase Test strip Ql (U) Negative Negative [facility] Urine pHOrdered By: Greg sun on 09-06-2023 pH (U) 6.5 [pH] 5.0 - 8.0 [facility] Urine sediment bacteria coun t by microscopy (number/high power field)Ordered By: Greg Philip on 09-06-2023 Bacteria LM.HPF (Urine sed) [#/Area] 0 /[HPF] None Seen [facility] Urine specific gravity measu rementOrdered By: Greg Philip on 09-06-2023 Specific gravity (U) [Rel density] 1.020 1.002-1.030 [facility] Urobilinogen Auto test strip Ql (U)Ordered By: Greg Philip on 09-06-2023 Urobilinogen Ql (U) 1 mg/dl Normal [facility] Absolute lymphocyte countOrd ered By: Marc Carl on 08-22-2023 Lymphocytes Auto (Unsp spec) [#/Vol] 2.29 10*3/uL 0.83-4.51 [facility] Basophil percentageOrdered B y: Marc Carl on 08-22-2023 Basophil percentage 0 SEEN /hpf 0-5 [facility] Basophils/100 WBC (Bld) 0.6 % 0-1 [facility] Bilirubin [Mass/Vol] 0.50 mg/dL 0.20-1.00 [facility] Comment on above: For patients on eltr ombopag therapy, use of Dimension Heath TBIL is not recommended. Chloride [Moles/Vol] 106 mmol/L 98-107 [facility] Eosinophils/100 WBC (Bld) 0.9 % 0-5 [facility] Glucose [Mass/Vol] 397 mg/dL 74-106 [facility] Comment on above: Glucose result great er than or equal to 200 mg/dLsuggests DIABETES MELLITUS per A.D.A. criteria. Neutrophils (Bld) [#/Vol] 4.8 10*3/uL 2.0-7.7 [facility] Neutrophils/100 WBC (Bld) 60.5 % 47-70 [facility] Potassium [Moles/Vol] 4.1 mmol/L 3.5-5.1 [facility] Protein [Mass/Vol] 6.6 g/dL 6.4-8.2 [facility] Sodium [Moles/Vol] 138 mmol/L 136-145 [facility] WBC (Bld) [#/Vol] 8.0 10*3/uL 4.4-11.0 [facility] Bilirubin Test strip Ql (U)O rdered By: Marc Carl on 08-22-2023 Bilirubin Ql (U) Negative Negative [facility] Blood erythrocytes count (nu mber/volume)Ordered By: Marc Carl on 08-22-2023 RBC (Bld) [#/Vol] 4.04 10*6/uL 4.2-5.4 [facility] Blood hemoglobin measurement (mass/volume)Ordered By: Marc Carl on 08-22-2023 Hemoglobin (Bld) [Mass/Vol] 11.6 g/dL 12.0-15.0 [facility] Blood lymphocytes/100 leukoc ytesOrdered By: Marc Carl on 08-22-2023 Lymphocytes/100 WBC (Bld) 28.7 % 19-41 [facility] Blood monocytes/100 leukocyt esOrdered By: Marc Carl on 08-22-2023 Monocytes/100 WBC (Bld) 7.9 % 0-10 [facility] Blood platelet mean volumeOr dered By: Marc Carl on 08-22-2023 Platelet mean volume (Bld) [Entitic vol] 12.0 fL 6.2-12.0 [facility] Determination of erythrocyte mean corpuscular volume (MCV)Ordered By: Marc Carl on 08-22-2023 MCV (RBC) [Entitic vol] 92.3 fL 81-99 [facility] Glucose Glucometer (dC) [M ass/Vol]Ordered By: Marc Carl on 08-22-2023 Glucose [Mass/Vol] 207 mg/dL 74-106 [facility] Comment on above: MANAGEMENT OF PATIEN T CARE PER NURSING PROTOCOL Hematocrit Auto (Bld) [Volum e fraction]Ordered By: Marc Carl on 08-22-2023 Hematocrit (Bld) [Volume fraction] 37.3 % 37-47 [facility] Ketones Test strip Ql (U)Ord ered By: Marc Carl on 08-22-2023 Ketones Ql (U) 5 mg/dl Negative [facility] Laboratory - Chemistry and C hemistry - challengeOrdered By: Marc Carl on 08-22-2023 ALP [Catalytic activity/Vol] 72 U/L 45-117 [facility] ALT [Catalytic activity/Vol] 87 U/L 13-56 [facility] CO2 [Moles/Vol] 27.0 mmol/L 21.0-32.0 [facility] Globulin (S) [Mass/Vol] 3.3 g/dL 2.2-4.2 [facility] Urea nitrogen/Creatinine [Mass ratio] 13.4 mg/mg 10-20 [facility] Laboratory - Hematology and Cell countsOrdered By: Marc Carl on 08-22-2023 Erythrocyte distribution width (RBC) [Entitic vol] 45.2 fL 35.1-43.9 [facility] Erythrocyte distribution width (RBC) [Ratio] 13.4 % 11.6-14.6 [facility] Immature granulocytes/100 WBC (Bld) 1.400 % 0.0-0.9 [facility] Comment on above: IG% - Immature Granu locytes (promyelocytes, myelocytes and metamyelocytes) > 1% indicates that a LEFT SHIFT is Present. MCH (RBC) [Entitic mass] 28.7 pg 27.0-32.0 [facility] Nucleated RBC/100 WBC (Bld) [Ratio] 0 % 0-5 [facility] MCHC Auto (RBC) [Mass/Vol]Or dered By: Marc Carl on 08-22-2023 MCHC (RBC) [Mass/Vol] 31.1 g/dL 32-36 [facility] Mucus LM Ql (Urine sed)Order ed By: Marc Carl on 08-22-2023 Mucus Ql (Urine sed) 0 SEEN /hpf [facility] Nitrite Test strip Ql (U)Ord ered By: Marc Carl on 08-22-2023 Nitrite Ql (U) Negative Negative [facility] No Panel InformationOrdered By: Marc Carl on 08-22-2023 Estimated Creatinine Clearance Calc 96.39 ml/min [facility] Estimated GFR (MDRD) Amer 95 mL/min >60 [facility] Comment on above: GFR Calc Estimated GFR (MDRD) Non-Af Amer 79 mL/min >60 [facility] Comment on above: Non- GFR Calc Platelets bldOrdered By: Filipe Carl on 08-22-2023 Platelets (Bld) [#/Vol] 206 10*3/uL 150-450 [facility] Protein Test strip Ql (U)Ord ered By: Marc Carl on 08-22-2023 Protein Ql (U) Negative Negative [facility] Serum or plasma albumin milli urement (mass/volume)Ordered By: Marc Carl on 08-22-2023 Albumin [Mass/Vol] 3.3 g/dL 3.2-5.0 [facility] Serum or plasma albumin/glob ulin mass ratioOrdered By: Marc Carl on 08-22-2023 Albumin/Globulin [Mass ratio] 1.0 {ratio} 0.9-2.4 [facility] Serum or plasma calcium milli urement (mass/volume)Ordered By: Marc Carl on 08-22-2023 Calcium [Mass/Vol] 8.4 mg/dL 8.5-10.1 [facility] Serum or plasma creatinine m easurement (mass/volume)Ordered By: Marc Carl on 08-22-2023 Creatinine [Mass/Vol] 0.90 mg/dL 0.55-1.02 [facility] Comment on above: The validity of the calculated GFR & GFRAA in patients over 70 years has not been determined. Clinical correlation is essential. Serum or plasma urea nitroge n measurement (mass/volume)Ordered By: Marc Carl on 08-22-2023 Urea nitrogen [Mass/Vol] 12 mg/dL 7-18 [facility] [facility] Squamous epithelial cells de tection in urine sediment by light microscopyOrdered By: Marc Carl on 08-22-2023 Epithelial cells.squamous LM Ql (Urine sed) 0-5 SEEN /hpf 5-10 [facility] Thin prep Papanicolaou smear with manual screeningOrdered By: Marc Carl on 08-22-2023 Thin prep Papanicolaou smear with manual screening 36 U/L 15-37 [facility] Thin prep Papanicolaou smear with manual screening 5 5-15 [facility] Urine blood detectionOrdered By: Marc Carl on 08-22-2023 RBC Ql (U) Negative Negative [facility] RBC Ql (U) 0 SEEN /hpf 0-5 [facility] Urine clarityOrdered By: Filipe Carl on 08-22-2023 Clarity (U) Clear Clear [facility] Urine color determinationOrd ered By: Marc Carl on 08-22-2023 Color (U) Yellow Yellow [facility] Urine glucose detectionOrder ed By: Marc Carl on 08-22-2023 Glucose Ql (U) 1000 mg/dl Normal [facility] Urine leukocyte esterase det ection by dipstickOrdered By: Marc Carl on 08-22-2023 Leukocyte esterase Test strip Ql (U) Negative Negative [facility] Urine pHOrdered By: Marc griffiths on 08-22-2023 pH (U) 8.0 [pH] 5.0 - 8.0 [facility] Urine sediment bacteria coun t by microscopy (number/high power field)Ordered By: Marc Carl on 08-22-2023 Bacteria LM.HPF (Urine sed) [#/Area] 0 /[HPF] None Seen [facility] Urine specific gravity measu rementOrdered By: Marc Carl on 08-22-2023 Specific gravity (U) [Rel density] 1.010 1.002-1.030 [facility] Urobilinogen Auto test strip Ql (U)Ordered By: Marc Carl on 08-22-2023 Urobilinogen Ql (U) Normal mg/dl Normal [facility] Basophil percentageOrdered B y: Dangelo Encarnacion on 08-10-2023 Chloride [Moles/Vol] 109 mmol/L 98-107 [facility] Glucose [Mass/Vol] 195 mg/dL 74-106 [facility] Comment on above: Fasting Glucose resu lt greater than or equal to 126 mg/dL suggests DIABETES MELLITUS per A.D.A. criteria. Potassium [Moles/Vol] 3.7 mmol/L 3.5-5.1 [facility] Sodium [Moles/Vol] 139 mmol/L 136-145 [facility] WBC (Bld) [#/Vol] 8.5 10*3/uL 4.4-11.0 [facility] Blood erythrocytes count (nu mber/volume)Ordered By: Dangelo Encarnacion on 08-10-2023 RBC (Bld) [#/Vol] 4.50 10*6/uL 4.2-5.4 [facility] Blood hemoglobin measurement (mass/volume)Ordered By: Dangelo Encarnacion on 08-10-2023 Hemoglobin (Bld) [Mass/Vol] 13.0 g/dL 12.0-15.0 [facility] Blood platelet mean volumeOr dered By: Dangelo Encarnacion on 08-10-2023 Platelet mean volume (Bld) [Entitic vol] 11.8 fL 6.2-12.0 [facility] Determination of erythrocyte mean corpuscular volume (MCV)Ordered By: Dangelo Encarnacion on 08-10-2023 MCV (RBC) [Entitic vol] 88.2 fL 81-99 [facility] Glucose Glucometer (BldC) [M ass/Vol]Ordered By: Dangelo Encarnacion on 08-10-2023 Glucose [Mass/Vol] 208 mg/dL 74-106 [facility] Comment on above: MANAGEMENT OF PATIEN T CARE PER NURSING PROTOCOL Hematocrit Auto (Bld) [Volum e fraction]Ordered By: Dangelo Encarnacion on 08-10-2023 Hematocrit (Bld) [Volume fraction] 39.7 % 37-47 [facility] Laboratory - Chemistry and C hemistry - challengeOrdered By: Dangelo Encarnacion on 08-10-2023 CO2 [Moles/Vol] 20.0 mmol/L 21.0-32.0 [facility] Urea nitrogen/Creatinine [Mass ratio] 15.4 mg/mg 10-20 [facility] Laboratory - Hematology and Cell countsOrdered By: Dangelo Encarnacion on 08-10-2023 Erythrocyte distribution width (RBC) [Entitic vol] 42.0 fL 35.1-43.9 [facility] Erythrocyte distribution width (RBC) [Ratio] 12.9 % 11.6-14.6 [facility] MCH (RBC) [Entitic mass] 28.9 pg 27.0-32.0 [facility] MCHC Auto (RBC) [Mass/Vol]Or dered By: Dangelo Encarnacion on 08-10-2023 MCHC (RBC) [Mass/Vol] 32.7 g/dL 32-36 [facility] No Panel InformationOrdered By: Dangelo Encarnacion on 08-10-2023 Estimated Creatinine Clearance Calc 149.57 ml/min [facility] Estimated GFR (MDRD) Amer 157 mL/min >60 [facility] Comment on above: GFR Calc Estimated GFR (MDRD) Non-Af Amer 129 mL/min >60 [facility] Comment on above: Non- GFR Calc Platelets bldOrdered By: Lauren mitch Alysha on 08-10-2023 Platelets (Bld) [#/Vol] 109 10*3/uL 150-450 [facility] Serum or plasma calcium milli urement (mass/volume)Ordered By: Dangelo Encarnacion on 08-10-2023 Calcium [Mass/Vol] 8.0 mg/dL 8.5-10.1 [facility] Serum or plasma creatinine m easurement (mass/volume)Ordered By: Dangelo Encarnacion on 08-10-2023 Creatinine [Mass/Vol] 0.58 mg/dL 0.55-1.02 [facility] Comment on above: The validity of the calculated GFR & GFRAA in patients over 70 years has not been determined. Clinical correlation is essential. Serum or plasma urea nitroge n measurement (mass/volume)Ordered By: Dangelo Encarnacion on 08-10-2023 Urea nitrogen [Mass/Vol] 9 mg/dL 7-18 [facility] Thin prep Papanicolaou smear with manual screeningOrdered By: Dangelo Encarnacion on 08-10-2023 Thin prep Papanicolaou smear with manual screening 10 5-15 [facility] Basophil percentageOrdered B y: Lul Nkechibing on 08-07-2023 Lactate [Moles/Vol] 2.2 mmol/L 0.4-2.0 [facility] Comment on above: Critical Result(s) C alled at: 06:54:28 08/07/2023 by: Reid Rogers. Colin Hopikns RN (ICU). Results read back by same. HCO3 (BldA) [Moles/Vol]Order ed By: Vamsi Lewis on 08-07-2023 HCO3 (Bld) [Moles/Vol] 12 mmol/L - [facility] Laboratory - Chemistry and C hemistry - challengeOrdered By: Vamsi Lewis on 08-07-2023 CO2 [Moles/Vol] 13 mmol/L [facility] Magnesium [Mass/Vol] 1.8 mg/dL 1.6-2.6 [facility] Comment on above: Slight Hemolysis, Re sult may be falsely increased. No Panel InformationOrdered By: Vamsi Lewis on 08-07-2023 Bed Mix Venous Bld PCO2 at Pat Temp 28.0 mmHg 41-51 [facility] Blood Gas Oxygen Percent 21.0 [facility] Blood Gas Sample Site Not entered [facility] Blood Gas Specimen Type ISABELLE [facility] Oxygen Delivery Device Not entered [facility] Venous Blood Base Excess -16 mmol/L -1.0-3.5 [facility] PO2 venousOrdered By: Vamsi Lewis on 08-07-2023 Oxygen (BldV) [Partial pressure] 52 mm[Hg] 25-40 [facility] Respiratory pathogens detect ion panel by molecular detection methodOrdered By: Vamsi Lewis on 08-07-2023 Respiratory pathogens DNA and RNA panel DANIEL+probe (Resp) [facility] Respiratory pathogens DNA and RNA panel DANIEL+probe (Resp) [facility] Serum or plasma acetone milli urement (mass/volume)Ordered By: Vamsi Lewis on 08-07-2023 Acetone [Mass/Vol] MODERATE NEG [facility] Vital signsOrdered By: Vamsi Lewis on 08-07-2023 Oxygen saturation in Blood 81 % 50-70 [facility] Whole blood hemoglobin A1c/t otal hemoglobin ratio (mass fraction)Ordered By: Vamsi Lewis on 08-07-2023 HbA1c (Bld) [Mass fraction] 7.0 % 3.8-5.6 [facility] Comment on above: Normal < 5.7 % Predi abetic 5.7 - 6.4 % Diabetic >or= 6.5 % Please note range changes. pH measurementOrdered By: Miller Lewis on 08-07-2023 pH (Unsp spec) 7.24 [pH] 7.32-7.42 [facility] Absolute lymphocyte countOrd ered By: Lul Singh on 08-06-2023 Lymphocytes Auto (Unsp spec) [#/Vol] 0.42 10*3/uL 0.83-4.51 [facility] Absolute lymphocyte countOrd ered By: Juan Marquez on 08-06-2023 Lymphocytes Auto (Unsp spec) [#/Vol] 1.08 10*3/uL 0.83-4.51 [facility] Basophil percentageOrdered B y: Lul Singh on 08-06-2023 Basophils/100 WBC (Bld) 0.5 % 0-1 [facility] Chloride [Moles/Vol] 101 mmol/L 98-107 [facility] Eosinophils/100 WBC (Bld) 0.0 % 0-5 [facility] Glucose [Mass/Vol] 548 mg/dL 74-106 [facility] Comment on above: Critical Result(s) C alled at: 23:51:02 08/06/2023 by: Jya Hill. to Matthew (RN) (ED) Results read back by same.Glucose result greater than or equal to 200 mg/dLsuggests DIABETES MELLITUS per A.D.A. criteria. Lactate [Moles/Vol] 4.4 mmol/L 0.4-2.0 [facility] Comment on above: Critical Result(s) C alled at: 23:51:02 08/06/2023 by: Jay Hill. to Matthew (RN) (ED) Results read back by same. Neutrophils (Bld) [#/Vol] 18.8 10*3/uL 2.0-7.7 [facility] Neutrophils/100 WBC (Bld) 92.7 % 47-70 [facility] Potassium [Moles/Vol] 4.8 mmol/L 3.5-5.1 [facility] Sodium [Moles/Vol] 132 mmol/L 136-145 [facility] WBC (Bld) [#/Vol] 20.3 10*3/uL 4.4-11.0 [facility] Basophil percentage 0 SEEN /hpf 0-5 [facility] Basophil percentageOrdered B y: Juan Marquez on 08-06-2023 Basophils/100 WBC (Bld) 0.2 % 0-1 [facility] Bilirubin [Mass/Vol] 0.70 mg/dL 0.20-1.00 [facility] Comment on above: For patients on eltr ombopag therapy, use of Dimension [place] TBIL is not recommended. Chloride [Moles/Vol] 108 mmol/L 98-107 [facility] Eosinophils/100 WBC (Bld) 0.1 % 0-5 [facility] Glucose [Mass/Vol] 69 mg/dL 74-106 [facility] Neutrophils (Bld) [#/Vol] 19.2 10*3/uL 2.0-7.7 [facility] Neutrophils/100 WBC (Bld) 87.7 % 47-70 [facility] Potassium [Moles/Vol] 3.3 mmol/L 3.5-5.1 [facility] Protein [Mass/Vol] 7.5 g/dL 6.4-8.2 [facility] Sodium [Moles/Vol] 139 mmol/L 136-145 [facility] WBC (Bld) [#/Vol] 21.9 10*3/uL 4.4-11.0 [facility] Beta hCG serum qualOrdered B y: Juan Marquez on 08-06-2023 Beta HCG ( test) Ql Negative [facility] Bilirubin Test strip Ql (U)O rdered By: Lul Singh on 08-06-2023 Bilirubin Ql (U) Negative Negative [facility] Blood erythrocytes count (nu mber/volume)Ordered By: Lul Singh on 08-06-2023 RBC (Bld) [#/Vol] 4.35 10*6/uL 4.2-5.4 [facility] Blood erythrocytes count (nu mber/volume)Ordered By: Juan Marquez on 08-06-2023 RBC (Bld) [#/Vol] 5.03 10*6/uL 4.2-5.4 [facility] Blood hemoglobin measurement (mass/volume)Ordered By: Lul Singh on 08-06-2023 Hemoglobin (Bld) [Mass/Vol] 12.6 g/dL 12.0-15.0 [facility] Blood hemoglobin measurement (mass/volume)Ordered By: Juan Marquez on 08-06-2023 Hemoglobin (Bld) [Mass/Vol] 14.7 g/dL 12.0-15.0 [facility] Blood lymphocytes/100 leukoc ytesOrdered By: Lul Singh on 08-06-2023 Lymphocytes/100 WBC (Bld) 2.1 % 19-41 [facility] Blood lymphocytes/100 leukoc ytesOrdered By: Juan Marquez on 08-06-2023 Lymphocytes/100 WBC (Bld) 4.9 % 19-41 [facility] Blood manual differential co mment interpretation (narrative result)Ordered By: Lul Singh on 08-06-2023 Manual differential comment Faraz (Bld) [Interp] SCANNED [facility] Comment on above: LYMPHOPENIA PRESENT Blood monocytes/100 leukocyt esOrdered By: Lul Singh on 08-06-2023 Monocytes/100 WBC (Bld) 2.0 % 0-10 [facility] Blood monocytes/100 leukocyt esOrdered By: Juan Marquez on 08-06-2023 Monocytes/100 WBC (Bld) 5.6 % 0-10 [facility] Blood platelet mean volumeOr dered By: Lul Singh on 08-06-2023 Platelet mean volume (Bld) [Entitic vol] 13.8 fL 6.2-12.0 [facility] Blood platelet mean volumeOr dered By: Juan Marquez on 08-06-2023 Platelet mean volume (Bld) [Entitic vol] 12.1 fL 6.2-12.0 [facility] Determination of erythrocyte mean corpuscular volume (MCV)Ordered By: Lul Singh on 08-06-2023 MCV (RBC) [Entitic vol] 93.1 fL 81-99 [facility] Determination of erythrocyte mean corpuscular volume (MCV)Ordered By: Juan Marquez on 08-06-2023 MCV (RBC) [Entitic vol] 88.9 fL 81-99 [facility] Glucose Glucometer (dC) [M ass/Vol]Ordered By: Juan Marquez on 08-06-2023 Glucose [Mass/Vol] 397 mg/dL 74-106 [facility] Comment on above: MANAGEMENT OF PATIEN T CARE PER NURSING PROTOCOL HCO3 (BldA) [Moles/Vol]Order ed By: Lul Singh on 08-06-2023 HCO3 (Bld) [Moles/Vol] 12 mmol/L 22-26 [facility] Hematocrit Auto (Bld) [Volum e fraction]Ordered By: Lul Singh on 08-06-2023 Hematocrit (Bld) [Volume fraction] 40.5 % 37-47 [facility] Hematocrit Auto (Bld) [Volum e fraction]Ordered By: Juan Marquez on 08-06-2023 Hematocrit (Bld) [Volume fraction] 44.7 % 37-47 [facility] Ketones Test strip Ql (U)Ord ered By: Lul Singh on 08-06-2023 Ketones Ql (U) 150 mg/dl Negative [facility] Comment on above: CRITICAL VALUE *HCRI TICAL VALUE VERIFIED. CALLED TO UKAFAN32/11/23 [id number] Jay Hill.RESULTS READ BACK BY SAME. Laboratory - Chemistry and C hemistry - challengeOrdered By: Lul Singh on 08-06-2023 CO2 [Moles/Vol] 13 mmol/L 23-33 [facility] CO2 [Moles/Vol] 14.0 mmol/L 21.0-32.0 [facility] Magnesium [Mass/Vol] 2.0 mg/dL 1.6-2.6 [facility] Urea nitrogen/Creatinine [Mass ratio] 16.1 mg/mg 10-20 [facility] Laboratory - Chemistry and C hemistry - challengeOrdered By: Juan Marquez on 08-06-2023 ALP [Catalytic activity/Vol] 94 U/L 45-117 [facility] ALT [Catalytic activity/Vol] 32 U/L 13-56 [facility] CO2 [Moles/Vol] 26.0 mmol/L 21.0-32.0 [facility] Globulin (S) [Mass/Vol] 3.6 g/dL 2.2-4.2 [facility] Lipase [Catalytic activity/Vol] 16 U/L 13-75 [facility] Comment on above: Please note:LIPASE r evised reference range effective 22. New Lipase methodology. Expected to produce lower values than the previous assay method. NEW Reference Range: 13 - 75 U/L Urea nitrogen/Creatinine [Mass ratio] 20.0 mg/mg 10 [facility] Laboratory - Hematology and Cell countsOrdered By: Lul Singh on 08-06-2023 Erythrocyte distribution width (RBC) [Entitic vol] 45.1 fL 35.1-43.9 [facility] Erythrocyte distribution width (RBC) [Ratio] 13.2 % 11.6-14.6 [facility] Immature granulocytes/100 WBC (Bld) 2.700 % 0.0-0.9 [facility] Comment on above: IG% - Immature Granu locytes (promyelocytes, myelocytes and metamyelocytes) > 1% indicates that a LEFT SHIFT is Present. MCH (RBC) [Entitic mass] 29.0 pg 27.0-32.0 [facility] Nucleated RBC/100 WBC (Bld) [Ratio] 0 % 0-5 [facility] Laboratory - Hematology and Cell countsOrdered By: Juan Marquez on 08-06-2023 Erythrocyte distribution width (RBC) [Entitic vol] 42.0 fL 35.1-43.9 [facility] Erythrocyte distribution width (RBC) [Ratio] 12.9 % 11.6-14.6 [facility] Immature granulocytes/100 WBC (Bld) 1.500 % 0.0-0.9 [facility] Comment on above: IG% - Immature Granu locytes (promyelocytes, myelocytes and metamyelocytes) > 1% indicates that a LEFT SHIFT is Present. MCH (RBC) [Entitic mass] 29.2 pg 27.0-32.0 [facility] Nucleated RBC/100 WBC (Bld) [Ratio] 0 % 0- [facility] MCHC Auto (RBC) [Mass/Vol]Or dered By: Lul Singh on 08-06-2023 MCHC (RBC) [Mass/Vol] 31.1 g/dL [facility] Comment on above: Delta: 32.9 on 08/06 MCHC Auto (RBC) [Mass/Vol]Or dered By: Juan Marquez on 08-06-2023 MCHC (RBC) [Mass/Vol] 32.9 g/dL [facility] Mucus LM Ql (Urine sed)Order ed By: Lul Singh on 08-06-2023 Mucus Ql (Urine sed) 0 SEEN /hpf [facility] Nitrite Test strip Ql (U)Ord ered By: Lul Singh on 08-06-2023 Nitrite Ql (U) Negative Negative [facility] No Panel InformationOrdered By: Lul Singh on 08-06-2023 Bed Mix Venous Bld PCO2 at Pat Temp 22.9 mmHg 41-51 [facility] Blood Gas Sample Site Not entered [facility] Blood Gas Specimen Type ISABELLE [facility] Oxygen Delivery Device Room Air Wo [facility] Venous Blood Base Excess -14 mmol/L -1.0-3.5 [facility] Estimated Creatinine Clearance Calc 73.52 ml/min [facility] Estimated GFR (MDRD) Amer 70 mL/min >60 [facility] Comment on above: GFR Calc Estimated GFR (MDRD) Non-Af Amer 58 mL/min >60 [facility] Comment on above: Non- GFR Calc No Panel InformationOrdered By: Juan Marquez on 08-06-2023 Estimated Creatinine Clearance Calc 108.44 ml/min [facility] Estimated GFR (MDRD) Amer 109 mL/min >60 [facility] Comment on above: GFR Calc Estimated GFR (MDRD) Non-Af Amer 90 mL/min >60 [facility] Comment on above: Non- GFR Calc PO2 venousOrdered By: Lul Singh on 08-06-2023 Oxygen (BldV) [Partial pressure] 58 mm[Hg] 25-40 [facility] Platelets bldOrdered By: Lane Singh on 08-06-2023 Platelets (Bld) [#/Vol] 140 10*3/uL 150-450 [facility] Platelets bldOrdered By: Lauren Marquez on 08-06-2023 Platelets (Bld) [#/Vol] 199 10*3/uL 150-450 [facility] Protein Test strip Ql (U)Ord ered By: Lul Singh on 08-06-2023 Protein Ql (U) Negative Negative [facility] Serum or plasma acetone milli urement (mass/volume)Ordered By: Lul Singh on 08-06-2023 Acetone [Mass/Vol] SMALL NEG [facility] Serum or plasma albumin milli urement (mass/volume)Ordered By: Juan Marquez on 08-06-2023 Albumin [Mass/Vol] 3.9 g/dL 3.2-5.0 [facility] Serum or plasma albumin/glob ulin mass ratioOrdered By: Juan Marquez on 08-06-2023 Albumin/Globulin [Mass ratio] 1.1 {ratio} 0.9-2.4 [facility] Serum or plasma calcium milli urement (mass/volume)Ordered By: Lul Singh on 08-06-2023 Calcium [Mass/Vol] 9.1 mg/dL 8.5-10.1 [facility] Serum or plasma calcium milli urement (mass/volume)Ordered By: Juan Marquez on 08-06-2023 Calcium [Mass/Vol] 9.6 mg/dL 8.5-10.1 [facility] Serum or plasma creatinine m easurement (mass/volume)Ordered By: Lul Singh on 08-06-2023 Creatinine [Mass/Vol] 1.18 mg/dL 0.55-1.02 [facility] Comment on above: The validity of the calculated GFR & GFRAA in patients over 70 years has not been determined. Clinical correlation is essential. Serum or plasma creatinine m easurement (mass/volume)Ordered By: Juan Marquez on 08-06-2023 Creatinine [Mass/Vol] 0.80 mg/dL 0.55-1.02 [facility] Comment on above: The validity of the calculated GFR & GFRAA in patients over 70 years has not been determined. Clinical correlation is essential. Serum or plasma urea nitroge n measurement (mass/volume)Ordered By: Lul Singh on 08-06-2023 Urea nitrogen [Mass/Vol] 19 mg/dL 03-14 [facility] Serum or plasma urea nitroge n measurement (mass/volume)Ordered By: Juan Marquez on 08-06-2023 Urea nitrogen [Mass/Vol] 16 mg/dL 03-14 [facility] Squamous epithelial cells de tection in urine sediment by light microscopyOrdered By: Lul Singh on 08-06-2023 Epithelial cells.squamous LM Ql (Urine sed) 0-5 SEEN /hpf -10 [facility] Thin prep Papanicolaou smear with manual screeningOrdered By: Lul Singh on 08-06-2023 Thin prep Papanicolaou smear with manual screening 17 5-15 [facility] Thin prep Papanicolaou smear with manual screeningOrdered By: Juan Marquez on 08-06-2023 Thin prep Papanicolaou smear with manual screening 15 U/L 15-37 [facility] Thin prep Papanicolaou smear with manual screening 5 5-15 [facility] Urine blood detectionOrdered By: Lul Singh on 08-06-2023 RBC Ql (U) 10 /ul Negative [facility] RBC Ql (U) 0 SEEN /hpf 0-5 [facility] Urine clarityOrdered By: Lane Singh on 08-06-2023 Clarity (U) Clear Clear [facility] Urine color determinationOrd ered By: Lul Singh on 08-06-2023 Color (U) Yellow Yellow [facility] Urine glucose detectionOrder ed By: Lul Singh on 08-06-2023 Glucose Ql (U) 1000 mg/dl Normal [facility] Urine leukocyte esterase det ection by dipstickOrdered By: Lul Singh on 08-06-2023 Leukocyte esterase Test strip Ql (U) Negative Negative [facility] Urine pHOrdered By: Llu fontaine on 08-06-2023 pH (U) 5.0 [pH] 5.0 - 8.0 [facility] Urine sediment bacteria coun t by microscopy (number/high power field)Ordered By: Lul Singh on 08-06-2023 Bacteria LM.HPF (Urine sed) [#/Area] 0 /[HPF] None Seen [facility] Urine specific gravity measu rementOrdered By: Lul Singh on 08-06-2023 Specific gravity (U) [Rel density] 1.015 1.002-1.030 [facility] Urobilinogen Auto test strip Ql (U)Ordered By: Lul Singh on 08-06-2023 Urobilinogen Ql (U) Normal mg/dl Normal [facility] Vital signsOrdered By: Partha Singh on 08-06-2023 Oxygen saturation in Blood 89 % 50-70 [facility] pH measurementOrdered By: Yarelis Singh on 08-06-2023 pH (Unsp spec) 7.34 [pH] 7.32-7.42 [facility] CBC panel Auto (Bld)on 07-12 Erythrocyte distribution width (RBC) [Ratio] 13.3 % Normal 11.5-15.0 [facility] Comment on above: Order Comment: Speci men Type: BLOOD SPECIMEN Ordering Facility: [facility] Address: [address] [place] [address] Performed By: #### 3 1201-7, 5195-3, 09435-2, SYPH #### [facility] CLIA [id number] [address] [place], [place] [id number] [place] Hematocrit (Bld) [Volume fraction] 44.2 % Normal 36.0-46.0 [facility] Comment on above: Order Comment: Speci men Type: BLOOD SPECIMEN Ordering Facility: [facility] Address: [address] Performed By: #### 3 1201-7, 5195-3, 39643-1, SYPH #### [facility] CLIA [id number] [address] [place] [address] [place] Hemoglobin (Bld) [Mass/Vol] 14.8 g/dL Normal 11.5-15.5 [facility] Comment on above: Order Comment: Speci men Type: BLOOD SPECIMEN Ordering Facility: [facility] Address: [address] Performed By: #### 3 1201-7, 5195-3, 50652-7, SYPH #### [facility] CLIA [id number] [address] [place] [address] [place] MCH (RBC) [Entitic mass] 29.4 pg Normal 26.0-34.0 [facility] Comment on above: Order Comment: Speci men Type: BLOOD SPECIMEN Ordering Facility: [facility] Address: [address] [place] [address] Performed By: #### 3 1201-7, 5195-3, 76286-8, SYPH #### [facility] CLIA [id number] [address] [place] [address] [place] MCHC (RBC) [Mass/Vol] 33.5 g/dL Normal 30.5-36.[address] [facility] Comment on above: Order Comment: Speci men Type: BLOOD SPECIMEN Ordering Facility: [facility] Address: [address] Performed By: #### 3 1201-7, 5195-3, 88610-5, SYPH #### [facility] CLIA [id number] [address] [place], [place] [address] [place] MCV (RBC) [Entitic vol] 87.7 fL Normal 80.0-100.0 [facility] Comment on above: Order Comment: Speci men Type: BLOOD SPECIMEN Ordering Facility: [facility] Address: [address] [place] [address] Performed By: #### 3 1201-7, 5194-3, 23143-2, SYPH #### [facility] CLIA [id number] [address] [place] [address] [place] Nucleated RBC (Bld) [#/Vol] 10*3/uL Normal <0.01 [facility] Comment on above: Order Comment: Speci men Type: BLOOD SPECIMEN Ordering Facility: [facility] Address: [address] [place] [place] [address] Performed By: #### 3 1201-7, 5194-3, , SYPH #### [facility] CLIA [id number] [address] [place] [address] [place] Platelet mean volume (Bld) [Entitic vol] 13.3 fL High 9.0-12.7 [facility] Comment on above: Order Comment: Speci men Type: BLOOD SPECIMEN Ordering Facility: [facility] Address: [address] [place] [place] [address] Performed By: #### 3 1201-7, 3, , SYPH #### [facility] CLIA [id number] [address] [place] [address] [place] Platelets (Bld) [#/Vol] 111 10*3/uL Low 150-400 [facility] Comment on above: Order Comment: Speci men Type: BLOOD SPECIMEN Ordering Facility: [facility] Address: [address] [place] [place] [address] Result Comment: No c lot detected. Performed By: #### 3 1201-7, 5194-3, 23864-9, SYPH #### [facility] CLIA [id number] [address] [place], [place] [id number] [place] RBC (Bld) [#/Vol] 5.04 10*6/uL Normal 3.90-5.20 [facility] Comment on above: Order Comment: Speci men Type: BLOOD SPECIMEN Ordering Facility: [facility] Address: [address] [place] [place] [address] Performed By: #### 3 1201-7, 5195-3, 01433-6, SYPH #### [facility] CLIA [id number] [address] [place], [place] [id number] [place] WBC (Bld) [#/Vol] 11.34 10*3/uL High 3.70-11.00 [facility] Comment on above: Order Comment: Speci men Type: BLOOD SPECIMEN Ordering Facility: [facility] Address: [address] [place], [place] [address] Performed By: #### 3 1201-7, 5195-3, 69079-8, SYPH #### [facility] CLIA [id number] [address] [place], [place] [address] [place] CTA ABD/PEL W IVCONon 2022 CTA ABD/PEL W IVCON * * *Final Report* * * DATE OF EXAM: Jul 12 2023 10:08AM [facility] 0311 - CTA ABD/PEL W IVCON [...] aorta without acute aortic pathology. Dictated by Client Technical Professional: Dutch Aguilar DO I, Jose M Llerena-Riquelme, MD, have supervised the procedure and/or image review, and agree with the above interpretation and report. Masonry Teacher: CONCHITA Transcribe Date/Time: Jul 12 2023 10:10A Dictated by : DUTCH AGUILAR DO This examination was interpreted and the report reviewed and electronically signed by: VALDO ISLAS MD on Jul 12 2023 2:59PM EST [id number] Normal [facility] CTA CHEST (GATED) WO/W IVCON on 07-12-2023 CTA CHEST (GATED) WO/W IVCON * * *Final Report* * * DATE OF EXAM: Jul 12 2023 10:08AM [facility] 0126 - CTA CHEST (GATED) WO/W [...] aorta without acute aortic pathology. Dictated by Client Technical Professional: Dutch Aguilar DO I, Valdo Islas MD, have supervised the procedure and/or image review, and agree with the above interpretation and report. Masonry Teacher: CONCHITA Transcribe Date/Time: Jul 12 2023 10:10A Dictated by : DUTCH AGUILAR DO This examination was interpreted and the report reviewed and electronically signed by: VALDO ISLAS MD on Jul 12 2023 2:59PM EST [id number] Normal [facility] Comprehensive metabolic 2000 panelon 07-12-2023 Albumin [Mass/Vol] 3.6 g/dL Normal 3.2-5.0 [facility] Comment on above: Order Comment: Speci men Type: BLOOD SPECIMENOrdering Facility: [facility] Address: [address] [place] [address] Performed By: #### 2 4323-8, ####[facility] [id number] [place] [address] [place] ALP [Catalytic activity/Vol] 80 U/L Normal 45-117 [facility] Comment on above: Order Comment: Speci men Type: BLOOD SPECIMENOrdering Facility: [facility] Address: [address] [place] [address] Performed By: #### 2 4323-8, ####[facility] [id number] [place] [id number] [place] ALT [Catalytic activity/Vol] 74 U/L High 13-61 [facility] Comment on above: Order Comment: Speci men Type: BLOOD SPECIMENOrdering Facility: [facility] Address: [address] [place] [address] Result Comment: Resu lts may be falsely depressed after the administration of Sulfasalazine and/or Sulfapyridine. Performed By: #### 2 4323-8, ####[facility]ORY[facility] [id number] [place] [id number] [place] Anion gap [Moles/Vol] 9 mmol/L Normal 5-[address] [facility] Comment on above: Order Comment: Belindai jeb Type: BLOOD SPECIMENOrdering Facility: [facility] Address: [address] [place] [address] Performed By: #### 2 4323-8, ####[facility]ORY[facility]IA [id number] [address] [place] AST [Catalytic activity/Vol] 44 U/L High 8-34 [facility] Comment on above: Order Comment: Speci men Type: BLOOD SPECIMENOrdering Facility: [facility] Address: [address] [place] [address] Result Comment: Resu lts may be falsely depressed after the administration of Sulfasalazine and/or Sulfapyridine. Performed By: #### 2 4323-8, ####[facility]ORY[facility]IA [id number] [place] [id number] [place] Bilirubin [Mass/Vol] 0.4 mg/dL Normal 0.2-1.0 [facility] Comment on above: Order Comment: Speci men Type: BLOOD SPECIMENOrdering Facility: [facility] Address: [address] [place] [address] Performed By: #### 2 4323-8, ####[facility]ORY[facility] [id number] [place] [id number] [place] Calcium [Mass/Vol] 9.2 mg/dL Normal 8.5-10.5 [facility] Comment on above: Order Comment: Speci men Type: BLOOD SPECIMENOrdering Facility: [facility] Address: [address] [place] [address] Performed By: #### 2 4323-8, ####[facility]ORY[facility]IA [id number] [place] [id number] [place] Chloride [Moles/Vol] 104 mmol/L Normal 98-107 [facility] Comment on above: Order Comment: Speci men Type: BLOOD SPECIMENOrdering Facility: [facility] Address: [address] [place] [address] Performed By: #### 2 4328, ####[facility]ORYCLIA [id number] [place] [address] [place] CO2 [Moles/Vol] 26 mmol/L Normal 21-32 [facility] Comment on above: Order Comment: Speci men Type: BLOOD SPECIMENOrdering Facility: [facility] Address: [address] [place] [address] Performed By: #### 2 4323-8, ####[facility]ORYCLIA [id number] [place] [address] [place] Creatinine [Mass/Vol] 0.63 mg/dL Normal 0.51-0.[address] [facility] Comment on above: Order Comment: Speci men Type: BLOOD SPECIMENOrdering Facility: [facility] Address: [address] [place] [address] Result Comment: Cleopatra ents receiving either N-Acetylcysteine (NAC) or Metamizole prior to venipuncture, may have falsely depressed results. Performed By: #### 2 4323-8, ####[facility]ORYCLIA [id number] [place] [id number] [place] Creatinine and Glomerular filtration rate.predicted panel (S/P/Bld) 124 mL/min/1.73m??? Normal >=60 [facility] Comment on above: Order Comment: Jon russ Type: BLOOD SPECIMENOrdering Facility: [facility] Address: [address] [place] [address] Result Comment: Janett mated Glomerular Filtration Rate [...] actual GFR. Performed By: #### 2 4323-8, ####[facility]ORYCLIA [id number] [place] [id number] [place] Glucose [Mass/Vol] 313 mg/dL High 70-100 [facility] Comment on above: Order Comment: Jon russ Type: BLOOD SPECIMENOrdering Facility: [facility] Address: [address] [place] [address] Result Comment: The [place] [employer] (ADA) provides guidance for cutoff [...] Standards of Medical Care in Diabetes 2016, [place] [employer]. Diabetes Care. 2016.39(Suppl 1). Results may be falsely elevated after the administration of Sulfapyridine. Results may be falsely depressed after the administration of Sulfasalazine. Performed By: #### 2 4323-8, 07630-9 ####[facility]ORYCLIA [id number] [place] [id number] [place] Potassium [Moles/Vol] 4.0 mmol/L Normal 3.5-5.[address] [facility] Comment on above: Order Comment: Jon russ Type: BLOOD SPECIMENOrdering Facility: [facility] Address: [address] [place] [place] [id number] Performed By: #### 2 4323-8, ####[facility]ORYCLIA [id number] [place] [id number] [place] Protein [Mass/Vol] 6.3 g/dL Normal 6.0-8.5 [facility] Comment on above: Order Comment: Speci men Type: BLOOD SPECIMENOrdering Facility: [facility] Address: [address] [address] Performed By: #### 2 4323-8, ####[facility]ORYCLIA [id number] [place] [id number] [place] Sodium [Moles/Vol] 139 mmol/L Normal 136-145 [facility] Comment on above: Order Comment: Speci men Type: BLOOD SPECIMENOrdering Facility: [facility] Address: [address] [address] Performed By: #### 2 4323-8, ####[facility]ORYCLIA [id number] [place] [id number] [place] Urea nitrogen [Mass/Vol] 16 mg/dL Normal 7-26 [facility] Comment on above: Order Comment: Speci men Type: BLOOD SPECIMENOrdering Facility: [facility] Address: [address] [place] [address] Performed By: #### 2 4323-8, ####[facility]ORYCLIA [id number] [place] [id number] [place] ECG COMPLETEon 07-12-2023 ECG COMPLETE Ventricular Rate : 9 6 BPM Atrial Rate : 96 BPM P-R Interval : 132 ms QRS Duration : 78 ms Q-T Interval : 370 ms QTC Calculation(Bazett) : 468 ms Calculated P [place] : 49 degrees Calculated R [place] : 95 degrees Calculated T [place] : 68 degrees Normal sinus rhythm with sinus arrhythmia Normal ECG When compared with ECG of 31-JAN-2023 19:42, Nonspecific T wave abnormality no longer evident in Inferior leads Nonspecific T wave abnormality, improved in Anterolateral leads Confirmed by ANASTASIA CHENG MD ([id number]) on 07/13/2023 7:59:29 PM NAME : KATHLEEN VILLA PID : [id number] : 1995 Gender : Female Race : ORD : [id number] Procedure Date : Jul 12 2023 03:45:28 Edit Date : Jul 13 2023 19:59:34 Diagnosis: Normal sinus rhythm with sinus arrhythmia Normal ECG When compared with ECG of 31-JAN-2023 19:42, Nonspecific T wave abnormality no longer evident in Inferior leads Nonspecific T wave abnormality, improved in Anterolateral leads Confirmed by ANASTASIA CHENG MD ([id number]) on 07/13/2023 7:59:29 PM Test Reason : STAT Location : 0 : ED A Overread By : ANASTASIA CHENG MD Edited By : ANASTASIA CHENG MD Referred By : , Acquired by : [facility], [facility] ED NOTEon 07-12-2023 ED NOTE HNO ID: [id number] Author: Vinayak Arevalo RN Service: ? Author Type: Registered Nurse Type: ED Notes Filed: 07/12/2023 10:15 AM Note Text: Pt c/o CP after CT. Dr Cortes notified [facility] ED NOTE HNO ID: [id number] Author: Jhoana Hope RN Service: ? Author Type: Registered Nurse Type: ED Notes Filed: 07/12/2023 6:05 AM Note Text: Failed IV/ Blood draw attempts x 2 by multiple staff members. Pt states she has a port and would like it accessed. [facility] ED PROV NOTEon 07-12-2023 ED PROV NOTE HNO ID: [id number] Author: Zohreh Cortes MD Service: ? Author [...] and time. (more content not included)... Normal [facility] HIGH SENSITIVITY TROPONIN Io n 07-12-2023 Tropinin I.cardiac panel High sensitivity method <2.5 Normal 0.0-34.0 [facility] Comment on above: Order Comment: Speci men Type: BLOOD SPECIMEN Ordering Facility: [facility] Address: [address] [place] [address] Result Comment: This assay uses different antibodies than our current assay, and assays, even by the same road crossing guard may recognize different regions of the antibody and cannot be used interchangeably. Expect results of this assay to run higher than the previous assay. Performed By: #### 3 1201-7, 5195-3, 42686-2, SYPH #### [facility] CLIA [id number] [address] [place] [address] [place] Tropinin I.cardiac panel High sensitivity method 3.3 pg/mL Normal 0.0-34.0 [facility] Comment on above: Order Comment: Speci men Type: BLOOD SPECIMEN Ordering Facility: [facility] Address: [address] [place] [address] Result Comment: This assay uses different antibodies than our current assay, and assays, even by the same road crossing guard may recognize different regions of the antibody and cannot be used interchangeably. Expect results of this assay to run higher than the previous assay. Performed By: #### 3 1201-7, 5195-3, 01585-6, SYPH #### [facility] CLIA [id number] [address] [place] [address] [place] Lipase SerPl-cCncon 07-12-20 23 Lipase [Catalytic activity/Vol] 23 U/L Normal 12-60 [facility] Comment on above: Order Comment: Speci men Type: BLOOD SPECIMENOrdering Facility: [facility] Address: [address] [place] [address] Performed By: #### 3 040-3 ####[facility]ORYCLIA [id number] [place] [address] [place] MORPH WAM REFLEXon 3 Platelets Estimate (Bld) [#/Vol] Decreased Normal [facility] Comment on above: Order Comment: Speci men Type: BLOOD SPECIMEN Ordering Facility: [facility] Address: [address] [place] [address] Performed By: #### 3 1201-7, 5195-3, 60474-0, SYPH #### [facility] CLIA [id number] [address] [place] [address] RED CELL MORPH Reviewed: unremarkable Normal [facility] Comment on above: Order Comment: Speci men Type: BLOOD SPECIMEN Ordering Facility: [facility] Address: [address] [place] [place] [address] Performed By: #### 3 1201-7, 5195-3, 75113-4, SYPH #### [facility] CLIA [id number] [address] [place] [address] Magnesium SerPl-mCncon 07-12 Magnesium [Mass/Vol] 1.8 mg/dL Normal 1.6-2.6 [facility] Comment on above: Order Comment: Speci men Type: BLOOD SPECIMEN Ordering Facility: [facility] Address: [address] [place], [place] [address] Performed By: #### 3 1201-7, 5195-3, 27669-6, SYPH #### [facility] CLIA [id number] [address] [place] [address] XR CHEST 2V FRONTAL/LATon XR CHEST 2V [...] significant acute radiographic abnormality of the chest. Masonry Teacher: PSCSinai Transcribe Date/Time: Jul 12 2023 4:44A Dictated by : LETICIA HUTCHINS MD This examination was interpreted and the report reviewed and electronically signed by: LETICIA HUTCHINS MD on Jul 12 2023 4:45AM EST [id number] [facility] Absolute lymphocyte countOrd ered By: Siddharth Herrera on 06-26-2023 Lymphocytes Auto (Unsp spec) [#/Vol] 0.96 10*3/uL 0.83-4.51 [facility] Basophil percentageOrdered B y: Siddharth Herrera on 06-26-2023 Basophils/100 WBC (Bld) 0.1 % 0-1 [facility] Bilirubin [Mass/Vol] 0.90 mg/dL 0.20-1.00 [facility] Comment on above: For patients on eltr ombopag therapy, use of Dimension Heath TBIL is not recommended. Chloride [Moles/Vol] 104 mmol/L 98-107 [facility] Eosinophils/100 WBC (Bld) 0.0 % 0-5 [facility] Glucose [Mass/Vol] 254 mg/dL 74-106 [facility] Comment on above: Glucose result great er than or equal to 200 mg/dLsuggests DIABETES MELLITUS per A.D.A. criteria. Neutrophils (Bld) [#/Vol] 12.6 10*3/uL 2.0-7.7 [facility] Neutrophils/100 WBC (Bld) 88.9 % 47-70 [facility] Potassium [Moles/Vol] 3.5 mmol/L 3.5-5.1 [facility] Protein [Mass/Vol] 6.8 g/dL 6.4-8.2 [facility] Sodium [Moles/Vol] 137 mmol/L 136-145 [facility] WBC (Bld) [#/Vol] 14.2 10*3/uL 4.4-11.0 [facility] Blood erythrocytes count (nu mber/volume)Ordered By: Siddharth Herrera on 06-26-2023 RBC (Bld) [#/Vol] 4.21 10*6/uL 4.2-5.4 [facility] Blood hemoglobin measurement (mass/volume)Ordered By: Siddharth Herrera on 06-26-2023 Hemoglobin (Bld) [Mass/Vol] 12.3 g/dL 12.0-15.0 [facility] Blood lymphocytes/100 leukoc ytesOrdered By: Siddharth Herrera on 06-26-2023 Lymphocytes/100 WBC (Bld) 6.8 % 19-41 [facility] Blood monocytes/100 leukocyt esOrdered By: Siddharth Herrera on 06-26-2023 Monocytes/100 WBC (Bld) 3.4 % 0-10 [facility] Blood platelet mean volumeOr dered By: Siddharth Herrera on 06-26-2023 Platelet mean volume (Bld) [Entitic vol] 12.7 fL 6.2-12.0 [facility] Determination of erythrocyte mean corpuscular volume (MCV)Ordered By: Siddharth Herrera on 06-26-2023 MCV (RBC) [Entitic vol] 90.5 fL 81-99 [facility] Hematocrit Auto (Bld) [Volum e fraction]Ordered By: Siddharth Herrera on 06-26-2023 Hematocrit (Bld) [Volume fraction] 38.1 % 37-47 [facility] Laboratory - Chemistry and C hemistry - challengeOrdered By: Siddharth Herrera on 06-26-2023 ALP [Catalytic activity/Vol] 86 U/L 45-117 [facility] [facility] ALT [Catalytic activity/Vol] 69 U/L 13-56 [facility] CO2 [Moles/Vol] 21.0 mmol/L 21.0-32.0 [facility] Globulin (S) [Mass/Vol] 3.2 g/dL 2.2-4.2 [facility] Lipase [Catalytic activity/Vol] U/L 13-75 [facility] Comment on above: Please note:LIPASE r evised reference range effective 22. New Lipase methodology. Expected to produce lower values than the previous assay method. NEW Reference Range: 13 - 75 U/L Urea nitrogen/Creatinine [Mass ratio] 18.9 mg/mg 10-20 [facility] Laboratory - Hematology and Cell countsOrdered By: Siddharth Herrera on 06-26-2023 Erythrocyte distribution width (RBC) [Entitic vol] 42.9 fL 35.1-43.9 [facility] Erythrocyte distribution width (RBC) [Ratio] 13.0 % 11.6-14.6 [facility] Immature granulocytes/100 WBC (Bld) 0.800 % 0.0-0.9 [facility] Comment on above: IG% - Immature Granu locytes (promyelocytes, myelocytes and metamyelocytes) > 1% indicates that a LEFT SHIFT is Present. MCH (RBC) [Entitic mass] 29.2 pg 27.0-32.0 [facility] Nucleated RBC/100 WBC (Bld) [Ratio] 0 % 0-5 [facility] MCHC Auto (RBC) [Mass/Vol]Or dered By: Siddharth Herrera on 06-26-2023 MCHC (RBC) [Mass/Vol] 32.3 g/dL 32-36 [facility] No Panel InformationOrdered By: Siddharth Herrera on 06-26-2023 Estimated Creatinine Clearance Calc 102.98 ml/min [facility] Estimated GFR (MDRD) Amer 102 mL/min >60 [facility] Comment on above: GFR Calc Estimated GFR (MDRD) Non-Af Amer 84 mL/min >60 [facility] Comment on above: Non- GFR Calc Platelets bldOrdered By: Margarita Herrera on 06-26-2023 Platelets (Bld) [#/Vol] 160 10*3/uL 150-450 [facility] Serum or plasma albumin milli urement (mass/volume)Ordered By: Siddharth Herrera on 06-26-2023 Albumin [Mass/Vol] 3.6 g/dL 3.2-5.0 [facility] Serum or plasma albumin/glob ulin mass ratioOrdered By: Siddharth Herrera on 06-26-2023 Albumin/Globulin [Mass ratio] 1.1 {ratio} 0.9-2.4 [facility] Serum or plasma calcium milli urement (mass/volume)Ordered By: Siddharth Herrera on 06-26-2023 Calcium [Mass/Vol] 8.8 mg/dL 8.5-10.1 [facility] Serum or plasma creatinine m easurement (mass/volume)Ordered By: Siddharth Herrera on 06-26-2023 Creatinine [Mass/Vol] 0.85 mg/dL 0.55-1.02 [facility] Comment on above: The validity of the calculated GFR & GFRAA in patients over 70 years has not been determined. Clinical correlation is essential. Serum or plasma urea nitroge n measurement (mass/volume)Ordered By: Siddharth Herrera on 06-26-2023 Urea nitrogen [Mass/Vol] 16 mg/dL 7-18 [facility] Thin prep Papanicolaou smear with manual screeningOrdered By: Siddharth Herrera on 06-26-2023 Thin prep Papanicolaou smear with manual screening 35 U/L 15-37 [facility] Thin prep Papanicolaou smear with manual screening 12 5-15 [facility] Absolute lymphocyte countOrd ered By: Greg Philip on 06-25-2023 Lymphocytes Auto (Unsp spec) [#/Vol] 2.12 10*3/uL 0.83-4.51 [facility] Basophil percentageOrdered B y: Greg Philip on 06-25-2023 Basophils/100 WBC (Bld) 0.4 % 0-1 [facility] Bilirubin [Mass/Vol] 0.60 mg/dL 0.20-1.00 [facility] Comment on above: For patients on eltr ombopag therapy, use of Dimension [employer] TBIL is not recommended. Chloride [Moles/Vol] 109 mmol/L 98-107 [facility] Eosinophils/100 WBC (Bld) 0.4 % 0-5 [facility] Glucose [Mass/Vol] 283 mg/dL 74-106 [facility] Comment on above: Glucose result great er than or equal to 200 mg/dLsuggests DIABETES MELLITUS per A.D.A. criteria. Neutrophils (Bld) [#/Vol] 9.2 10*3/uL 2.0-7.7 [facility] Neutrophils/100 WBC (Bld) 75.9 % 47-70 [facility] Potassium [Moles/Vol] 3.8 mmol/L 3.5-5.1 [facility] Protein [Mass/Vol] 6.9 g/dL 6.4-8.2 [facility] Sodium [Moles/Vol] 140 mmol/L 136-145 [facility] WBC (Bld) [#/Vol] 12.1 10*3/uL 4.4-11.0 [facility] Beta hCG serum qualOrdered B y: Greg Philip on 06-25-2023 Beta HCG ( test) Ql Negative [facility] Blood erythrocytes count (nu mber/volume)Ordered By: Greg Philip on 06-25-2023 RBC (Bld) [#/Vol] 4.56 10*6/uL 4.2-5.4 [facility] Blood hemoglobin measurement (mass/volume)Ordered By: Greg Philip on 06-25-2023 Hemoglobin (Bld) [Mass/Vol] 13.5 g/dL 12.0-15.0 [facility] Blood lymphocytes/100 leukoc ytesOrdered By: Greg Philip on 06-25-2023 Lymphocytes/100 WBC (Bld) 17.5 % 19-41 [facility] Blood monocytes/100 leukocyt esOrdered By: Greg Philip on 06-25-2023 Monocytes/100 WBC (Bld) 5.0 % 0-10 [facility] Blood platelet mean volumeOr dered By: Greg Philip on 06-25-2023 Platelet mean volume (Bld) [Entitic vol] 12.9 fL 6.2-12.0 [facility] Determination of erythrocyte mean corpuscular volume (MCV)Ordered By: Greg Philip on 06-25-2023 MCV (RBC) [Entitic vol] 89.5 fL 81-99 [facility] Hematocrit Auto (Bld) [Volum e fraction]Ordered By: Greg Philip on 06-25-2023 Hematocrit (Bld) [Volume fraction] 40.8 % 37-47 [facility] Laboratory - Chemistry and C hemistry - challengeOrdered By: Greg Philip on 06-25-2023 ALP [Catalytic activity/Vol] 85 U/L 45-117 [facility] ALT [Catalytic activity/Vol] 70 U/L 13-56 [facility] CO2 [Moles/Vol] 22.0 mmol/L 21.0-32.0 [facility] Globulin (S) [Mass/Vol] 3.2 g/dL 2.2-4.2 [facility] Lipase [Catalytic activity/Vol] 16 U/L 13-75 [facility] Comment on above: Please note:LIPASE r evised reference range effective 22. New Lipase methodology. Expected to produce lower values than the previous assay method. NEW Reference Range: 13 - 75 U/L Urea nitrogen/Creatinine [Mass ratio] 17.3 mg/mg 10-20 [facility] Laboratory - Hematology and Cell countsOrdered By: Greg Philip on 06-25-2023 Erythrocyte distribution width (RBC) [Entitic vol] 42.5 fL 35.1-43.9 [facility] Erythrocyte distribution width (RBC) [Ratio] 13.1 % 11.6-14.6 [facility] Immature granulocytes/100 WBC (Bld) 0.800 % 0.0-0.9 [facility] Comment on above: IG% - Immature Granu locytes (promyelocytes, myelocytes and metamyelocytes) > 1% indicates that a LEFT SHIFT is Present. MCH (RBC) [Entitic mass] 29.6 pg 27.0-32.0 [facility] Nucleated RBC/100 WBC (Bld) [Ratio] 0 % 0-5 [facility] MCHC Auto (RBC) [Mass/Vol]Or dered By: Greg Philip on 06-25-2023 MCHC (RBC) [Mass/Vol] 33.1 g/dL 32-36 [facility] No Panel InformationOrdered By: Greg Philip on 06-25-2023 Estimated Creatinine Clearance Calc 104.31 ml/min [facility] Estimated GFR (MDRD) Amer 108 mL/min >60 [facility] Comment on above: GFR Calc Estimated GFR (MDRD) Non-Af Amer 89 mL/min >60 [facility] Comment on above: Non- GFR Calc Platelets bldOrdered By: Allyn Philip on 06-25-2023 Platelets (Bld) [#/Vol] 180 10*3/uL 150-450 [facility] Serum or plasma albumin milli urement (mass/volume)Ordered By: Greg Philip on 06-25-2023 Albumin [Mass/Vol] 3.7 g/dL 3.2-5.0 [facility] Serum or plasma albumin/glob ulin mass ratioOrdered By: Greg Philip on 06-25-2023 Albumin/Globulin [Mass ratio] 1.2 {ratio} 0.9-2.4 [facility] Serum or plasma calcium milli urement (mass/volume)Ordered By: Greg Philip on 06-25-2023 Calcium [Mass/Vol] 9.1 mg/dL 8.5-10.1 [facility] Serum or plasma creatinine m easurement (mass/volume)Ordered By: Greg Philip on 06-25-2023 Creatinine [Mass/Vol] 0.81 mg/dL 0.55-1.02 [facility] Comment on above: The validity of the calculated GFR & GFRAA in patients over 70 years has not been determined. Clinical correlation is essential. Serum or plasma urea nitroge n measurement (mass/volume)Ordered By: Greg Philip on 06-25-2023 Urea nitrogen [Mass/Vol] 14 mg/dL 7-18 [facility] Thin prep Papanicolaou smear with manual screeningOrdered By: Greg Philip on 06-25-2023 Thin prep Papanicolaou smear with manual screening 39 U/L 15-37 [facility] Thin prep Papanicolaou smear with manual screening 9 5-15 [facility] HEMOGLOBIN A1C (POC)on 05-31 HbA1c (Bld) [Mass fraction] 7.2 % Abnormal 4.2 - 5.6 % [facility] CNPNon 05-23-2023 CNPN Telephone (FAMPOR) KATHLEEN VILLA ([id number]) 1995 F T Date Time Provider Department [...] 04/16/2014 [Z34.90] 11/22/2013 04/16/2014 Diabetes mellitus in ([facility]) [O24.919] 12/25/2013 04/16/2014 Diabetic ketoacidosis without coma associated w*01/08/2014 02/04/2023 Aortic root aneurysm ([facility]) [I71.21] 01/08/2014 DVT prophylaxis [Z79.899] 02/25/2014 04/16/2014 [...] Encounter Status:Closed by EUNICE MCDONALD on 05/23/23 [facility] Basophil percentageOrdered B y: Lin Johansen on 05-03-2023 Chloride [Moles/Vol] 111 mmol/L 98-107 [facility] Glucose [Mass/Vol] 230 mg/dL 74-106 [facility] Comment on above: Glucose result great er than or equal to 200 mg/dLsuggests DIABETES MELLITUS per A.D.A. criteria. Potassium [Moles/Vol] 3.7 mmol/L 3.5-5.1 [facility] Sodium [Moles/Vol] 142 mmol/L 136-145 [facility] Beta hCG serum qualOrdered B y: Marc Carl on 05-03-2023 Beta HCG ( test) Ql Negative [facility] Laboratory - Chemistry and C hemistry - challengeOrdered By: Lin Johansen on 05-03-2023 CO2 [Moles/Vol] 22.0 mmol/L 21.0-32.0 [facility] Urea nitrogen/Creatinine [Mass ratio] 12.8 mg/mg 10-20 [facility] No Panel InformationOrdered By: Lin Johansen on 05-03-2023 Estimated Creatinine Clearance Calc 141.18 ml/min [facility] Estimated GFR (MDRD) Amer 145 mL/min >60 [facility] Comment on above: GFR Calc Estimated GFR (MDRD) Non-Af Amer 120 mL/min >60 [facility] Comment on above: Non- GFR Calc Serum or plasma acetone milli urement (mass/volume)Ordered By: Marc Carl on 05-03-2023 Acetone [Mass/Vol] MODERATE NEG [facility] Serum or plasma calcium milli urement (mass/volume)Ordered By: Lin Johansen on 05-03-2023 Calcium [Mass/Vol] 7.7 mg/dL 8.5-10.1 [facility] Serum or plasma creatinine m easurement (mass/volume)Ordered By: Lin Johansen on 05-03-2023 Creatinine [Mass/Vol] 0.62 mg/dL 0.55-1.02 [facility] Comment on above: The validity of the calculated GFR & GFRAA in patients over 70 years has not been determined. Clinical correlation is essential. Serum or plasma urea nitroge n measurement (mass/volume)Ordered By: Lin Johansen on 05-03-2023 Urea nitrogen [Mass/Vol] 8 mg/dL 7-18 [facility] Thin prep Papanicolaou smear with manual screeningOrdered By: Lin Johansen on 05-03-2023 Thin prep Papanicolaou smear with manual screening 9 5-15 [facility] Absolute lymphocyte countOrd ered By: Ileana Lobo on 04-29-2023 Lymphocytes Auto (Unsp spec) [#/Vol] 2.07 10*3/uL 0.83-4.51 [facility] Basophil percentageOrdered B y: Ileana Lobo on 04-29-2023 Basophils/100 WBC (Bld) 0.3 % 0-1 [facility] Chloride [Moles/Vol] 108 mmol/L 98-107 [facility] Eosinophils/100 WBC (Bld) 0.0 % 0-5 [facility] Glucose [Mass/Vol] 258 mg/dL 74-106 [facility] Comment on above: Glucose result great er than or equal to 200 mg/dLsuggests DIABETES MELLITUS per A.D.A. criteria. Neutrophils (Bld) [#/Vol] 11.5 10*3/uL 2.0-7.7 [facility] Neutrophils/100 WBC (Bld) 79.4 % 47-70 [facility] Potassium [Moles/Vol] 4.5 mmol/L 3.5-5.1 [facility] Sodium [Moles/Vol] 136 mmol/L 136-145 [facility] WBC (Bld) [#/Vol] 14.4 10*3/uL 4.4-11.0 [facility] Blood erythrocytes count (nu mber/volume)Ordered By: Ileana Lobo on 04-29-2023 RBC (Bld) [#/Vol] 3.86 10*6/uL 4.2-5.4 [facility] Blood hemoglobin measurement (mass/volume)Ordered By: Ileana Lobo on 04-29-2023 Hemoglobin (Bld) [Mass/Vol] 11.5 g/dL 12.0-15.0 [facility] Blood lymphocytes/100 leukoc ytesOrdered By: Ileana Lobo on 04-29-2023 Lymphocytes/100 WBC (Bld) 14.3 % 19-41 [facility] Blood monocytes/100 leukocyt esOrdered By: Ileana Lobo on 04-29-2023 Monocytes/100 WBC (Bld) 4.9 % 0-10 [facility] Blood platelet mean volumeOr dered By: Ileana Lobo on 04-29-2023 Platelet mean volume (Bld) [Entitic vol] 11.6 fL 6.2-12.0 [facility] Determination of erythrocyte mean corpuscular volume (MCV)Ordered By: Ileana Lobo on 04-29-2023 MCV (RBC) [Entitic vol] 91.2 fL 81-99 [facility] Glucose Glucometer (BldC) [M ass/Vol]Ordered By: Ileana Lobo on 04-29-2023 Glucose [Mass/Vol] 210 mg/dL 74-106 [facility] Comment on above: MANAGEMENT OF PATIEN T CARE PER NURSING PROTOCOL Hematocrit Auto (Bld) [Volum e fraction]Ordered By: Ileana Lobo on 04-29-2023 Hematocrit (Bld) [Volume fraction] 35.2 % 37-47 [facility] Laboratory - Chemistry and C hemistry - challengeOrdered By: Ileana Lobo on 04-29-2023 CO2 [Moles/Vol] 19.0 mmol/L 21.0-32.0 [facility] Urea nitrogen/Creatinine [Mass ratio] 11.6 mg/mg 10-20 [facility] Laboratory - Hematology and Cell countsOrdered By: Ileana Lobo on 04-29-2023 Erythrocyte distribution width (RBC) [Entitic vol] 47.9 fL 35.1-43.9 [facility] Erythrocyte distribution width (RBC) [Ratio] 14.3 % 11.6-14.6 [facility] Immature granulocytes/100 WBC (Bld) 1.100 % 0.0-0.9 [facility] Comment on above: IG% - Immature Granu locytes (promyelocytes, myelocytes and metamyelocytes) > 1% indicates that a LEFT SHIFT is Present. MCH (RBC) [Entitic mass] 29.8 pg 27.0-32.0 [facility] Nucleated RBC/100 WBC (Bld) [Ratio] 0 % 0-5 [facility] MCHC Auto (RBC) [Mass/Vol]Or dered By: Ileana Lobo on 04-29-2023 MCHC (RBC) [Mass/Vol] 32.7 g/dL 32-36 [facility] No Panel InformationOrdered By: Ileana Lobo on 04-29-2023 Estimated Creatinine Clearance Calc 112.22 ml/min [facility] Estimated GFR (MDRD) Amer 113 mL/min >60 [facility] Comment on above: GFR Calc Estimated GFR (MDRD) Non-Af Amer 93 mL/min >60 [facility] Comment on above: Non- GFR Calc Platelets bldOrdered By: Jes Lobo on 04-29-2023 Platelets (Bld) [#/Vol] 143 10*3/uL 150-450 [facility] Serum or plasma calcium milli urement (mass/volume)Ordered By: Ileana Lobo on 04-29-2023 Calcium [Mass/Vol] 8.0 mg/dL 8.5-10.1 [facility] Serum or plasma creatinine m easurement (mass/volume)Ordered By: Ileana Lobo on 04-29-2023 Creatinine [Mass/Vol] 0.78 mg/dL 0.55-1.02 [facility] Comment on above: The validity of the calculated GFR & GFRAA in patients over 70 years has not been determined. Clinical correlation is essential. Serum or plasma urea nitroge n measurement (mass/volume)Ordered By: Ileana Lobo on 04-29-2023 Urea nitrogen [Mass/Vol] 9 mg/dL 7-18 [facility] Thin prep Papanicolaou smear with manual screeningOrdered By: Ileana Lobo on 04-29-2023 Thin prep Papanicolaou smear with manual screening 9 5-15 [facility] Assessment of wrist artery p atency prior to arterial punctureOrdered By: David Smith on 04-28-2023 Arterial patency Wrist artery --pre arterial puncture Positive [facility] Base excessOrdered By: Demond Smith on 04-28-2023 Base excess Calc (BldV) [Moles/Vol] -6 mmol/L -2-2 [facility] Basophil percentageOrdered B y: Ileana Lobo on 04-28-2023 Basophil percentage 0-5 SEEN /hpf 0-5 [facility] Basophil percentageOrdered B y: David Smith on 04-28-2023 Basophil percentage 18.2 mmol/L 22-26 [facility] Basophils/100 WBC (Bld) 99 % 95-99 [facility] Bilirubin Test strip Ql (U)O rdered By: Ileana Lobo on 04-28-2023 Bilirubin Ql (U) Negative Negative [facility] CO2 (BldA) [Partial pressure ]Ordered By: David Smith on 04-28-2023 CO2 (Bld) [Partial pressure] 26.7 mm[Hg] 35-45 [facility] Culture, urineOrdered By: Jocelyne Lobo on 04-28-2023 Bacteria identified Cx Nom (U) Positive [facility] Bacteria identified Cx Nom (U) Positive [facility] Ketones Test strip Ql (U)Ord ered By: Ileana Lobo on 04-28-2023 Ketones Ql (U) 150 mg/dl Negative [facility] Comment on above: CRITICAL VALUE *HCRI TICAL VALUE VERIFIED. CALLED TO [id number]/01/23 Feliciano Felix.RESULTS READ BACK BY SAME . Laboratory - Chemistry and C hemistry - challengeOrdered By: Ileana Lobo on 04-28-2023 Magnesium [Mass/Vol] 2.1 mg/dL 1.6-2.6 [facility] Laboratory - Drug toxicology Ordered By: Ileana Lobo on 04-28-2023 Amphetamines Ql (U) Negative <1000 ng/mL [facility] Benzodiazepines Ql (U) Negative < 200 ng/mL [facility] Cannabinoids Screen Ql (U) Positive < 50 ng/mL [facility] Cocaine Ql (U) Negative < 300 ng/mL [facility] Opiates Ql (U) Negative < 300 ng/mL [facility] Mucus LM Ql (Urine sed)Order ed By: Ileana Lobo on 04-28-2023 Mucus Ql (Urine sed) 0 SEEN /hpf [facility] Nitrite Test strip Ql (U)Ord ered By: Ileana Lobo on 04-28-2023 Nitrite Ql (U) Negative Negative [facility] No Panel InformationOrdered By: Ileana Lobo on 04-28-2023 MDMA (Ecstasy) Screen Negative < 500 ng/mL [facility] Urine Barbiturates Screen Negative < 200 ng/mL [facility] Urine Drug Screen Comment [facility] Comment on above: CONFIRMATORY TESTING FOR ALL [...] Methadone Screen Negative < 300 ng/mL [facility] No Panel InformationOrdered By: David Smith on 04-28-2023 Blood Gas Sample Site R Radial [facility] Blood Gas Specimen Type ART [facility] Blood Gas Total CO2 19 mmol/L [facility] Oxygen (BldA) [Partial press ure]Ordered By: David Smith on 04-28-2023 Oxygen (Bld) [Partial pressure] 107 mmHG 75-100 [facility] Protein Test strip Ql (U)Ord ered By: Ileana Lobo on 04-28-2023 Protein Ql (U) Negative Negative [facility] Serum or plasma acetone milli urement (mass/volume)Ordered By: Vincenzo Castañeda on 04-28-2023 Acetone [Mass/Vol] SMALL NEG [facility] Serum procalcitonin measurem entOrdered By: Ileana Lobo on 04-28-2023 Procalcitonin [Mass/Vol] 0.08 ng/mL 0.00-0.09 [facility] Comment on above: A procalcitonin (PCT ) [...] Ql (Urine sed) 0 SEEN /hpf 5-10 [facility] Urine blood detectionOrdered By: Ileana Lobo on 04-28-2023 RBC Ql (U) Negative Negative [facility] RBC Ql (U) 0 SEEN /hpf 0-5 [facility] Urine clarityOrdered By: Jes Lobo on 04-28-2023 Clarity (U) Clear Clear [facility] Urine color determinationOrd ered By: Ileana Lobo on 04-28-2023 Color (U) Straw Yellow [facility] Urine glucose detectionOrder ed By: Ileana Lobo on 04-28-2023 Glucose Ql (U) 100 mg/dl Normal [facility] Urine leukocyte esterase det ection by dipstickOrdered By: Ileana Lobo on 04-28-2023 Leukocyte esterase Test strip Ql (U) 25 /ul Negative [facility] Urine pHOrdered By: Ileana mayorga on 04-28-2023 pH (U) 5.0 [pH] 5.0 - 8.0 [facility] Urine phencyclidine (PCP) de tectionOrdered By: Ileana Lobo on 04-28-2023 Phencyclidine Ql (U) Negative < 25 ng/mL [facility] Urine sediment bacteria coun t by microscopy (number/high power field)Ordered By: Ileana Lobo on 04-28-2023 Bacteria LM.HPF (Urine sed) [#/Area] 0 /[HPF] None Seen [facility] Urine specific gravity measu rementOrdered By: Ileana Lobo on 04-28-2023 Specific gravity (U) [Rel density] 1.010 1.002-1.030 [facility] Urobilinogen Auto test strip Ql (U)Ordered By: Ileana Lobo on 04-28-2023 Urobilinogen Ql (U) Normal mg/dl Normal [facility] pH measurementOrdered By: Gloria Smith on 04-28-2023 pH (Unsp spec) 7.44 [pH] 7.35-7.45 [facility] Absolute lymphocyte countOrd ered By: Lin Johansen on 04-27-2023 Lymphocytes Auto (Unsp spec) [#/Vol] 0.67 10*3/uL 0.83-4.51 [facility] Basophil percentageOrdered B y: Lin Johansen on 04-27-2023 Basophils/100 WBC (Bld) 0.2 % 0-1 [facility] Bilirubin [Mass/Vol] 1.00 mg/dL 0.20-1.00 [facility] Comment on above: For patients on eltr ombopag therapy, use of Dimension Heath TBIL is not recommended. Chloride [Moles/Vol] 102 mmol/L 98-107 [facility] Eosinophils/100 WBC (Bld) 0.0 % 0-5 [facility] Glucose [Mass/Vol] 313 mg/dL 74-106 [facility] Comment on above: Glucose result great er than or equal to 200 mg/dLsuggests DIABETES MELLITUS per A.D.A. criteria. Neutrophils (Bld) [#/Vol] 19.6 10*3/uL 2.0-7.7 [facility] Neutrophils/100 WBC (Bld) 93.9 % 47-70 [facility] Potassium [Moles/Vol] 5.1 mmol/L 3.5-5.1 [facility] Protein [Mass/Vol] 7.5 g/dL 6.4-8.2 [facility] Sodium [Moles/Vol] 130 mmol/L 136-145 [facility] WBC (Bld) [#/Vol] 20.9 10*3/uL 4.4-11.0 [facility] Blood erythrocytes count (nu mber/volume)Ordered By: Lin Johansen on 04-27-2023 RBC (Bld) [#/Vol] 4.65 10*6/uL 4.2-5.4 [facility] Blood hemoglobin measurement (mass/volume)Ordered By: Lin Johansen on 04-27-2023 Hemoglobin (Bld) [Mass/Vol] 13.5 g/dL 12.0-15.0 [facility] Blood lymphocytes/100 leukoc ytesOrdered By: Lin Johansen on 04-27-2023 Lymphocytes/100 WBC (Bld) 3.2 % 19-41 [facility] Blood monocytes/100 leukocyt esOrdered By: Lin Johansen on 04-27-2023 Monocytes/100 WBC (Bld) 0.9 % 0-10 [facility] Blood platelet mean volumeOr dered By: Lin Johansen on 04-27-2023 Platelet mean volume (Bld) [Entitic vol] 12.5 fL 6.2-12.0 [facility] Determination of erythrocyte mean corpuscular volume (MCV)Ordered By: Lin Johansen on 04-27-2023 MCV (RBC) [Entitic vol] 90.3 fL 81-99 [facility] Direct bilirubinOrdered By: Lin Johansen on 04-27-2023 Bilirubin.direct [Mass/Vol] 0.30 mg/dL 0.00-0.30 [facility] Glucose Glucometer (BldC) [M ass/Vol]Ordered By: Lin Johansen on 04-27-2023 Glucose [Mass/Vol] 206 mg/dL 74-106 [facility] Comment on above: MANAGEMENT OF PATIEN T CARE PER NURSING PROTOCOL Hematocrit Auto (Bld) [Volum e fraction]Ordered By: Lin Johansen on 04-27-2023 Hematocrit (Bld) [Volume fraction] 42.0 % 37-47 [facility] Laboratory - Chemistry and C hemistry - challengeOrdered By: Lin Johansen on 04-27-2023 ALP [Catalytic activity/Vol] 85 U/L 45-117 [facility] ALT [Catalytic activity/Vol] 22 U/L 13-56 [facility] CO2 [Moles/Vol] 13.0 mmol/L 21.0-32.0 [facility] Globulin (S) [Mass/Vol] 3.5 g/dL 2.2-4.2 [facility] Lipase [Catalytic activity/Vol] 10 U/L 13-75 [facility] Comment on above: Please note:LIPASE r evised reference range effective 22. New Lipase methodology. Expected to produce lower values than the previous assay method. NEW Reference Range: 13 - 75 U/L Urea nitrogen/Creatinine [Mass ratio] 13.9 mg/mg 10-20 [facility] Laboratory - Hematology and Cell countsOrdered By: Lin Johansen on 04-27-2023 Erythrocyte distribution width (RBC) [Entitic vol] 46.5 fL 35.1-43.9 [facility] Erythrocyte distribution width (RBC) [Ratio] 14.2 % 11.6-14.6 [facility] Immature granulocytes/100 WBC (Bld) 1.800 % 0.0-0.9 [facility] Comment on above: IG% - Immature Granu locytes (promyelocytes, myelocytes and metamyelocytes) > 1% indicates that a LEFT SHIFT is Present. MCH (RBC) [Entitic mass] 29.0 pg 27.0-32.0 [facility] Nucleated RBC/100 WBC (Bld) [Ratio] 0 % 0-5 [facility] MCHC Auto (RBC) [Mass/Vol]Or dered By: Lin Johansen on 04-27-2023 MCHC (RBC) [Mass/Vol] 32.1 g/dL 32-36 [facility] No Panel InformationOrdered By: Lin Johansen on 04-27-2023 Estimated Creatinine Clearance Calc 78.23 ml/min [facility] Estimated GFR (MDRD) Amer 77 mL/min >60 [facility] Comment on above: GFR Calc Estimated GFR (MDRD) Non-Af Amer 64 mL/min >60 [facility] Comment on above: Non- GFR Calc Platelets bldOrdered By: Vicenta Johansen on 04-27-2023 Platelets (Bld) [#/Vol] 158 10*3/uL 150-450 [facility] Serum or plasma albumin milli urement (mass/volume)Ordered By: Lin Johansen on 04-27-2023 Albumin [Mass/Vol] 4.0 g/dL 3.2-5.0 [facility] Serum or plasma calcium milli urement (mass/volume)Ordered By: Lin Johansen on 04-27-2023 Calcium [Mass/Vol] 9.4 mg/dL 8.5-10.1 [facility] Serum or plasma creatinine m easurement (mass/volume)Ordered By: Lin Johansen on 04-27-2023 Creatinine [Mass/Vol] 1.08 mg/dL 0.55-1.02 [facility] Comment on above: The validity of the calculated GFR & GFRAA in patients over 70 years has not been determined. Clinical correlation is essential. Serum or plasma urea nitroge n measurement (mass/volume)Ordered By: Lin Johansen on 04-27-2023 Urea nitrogen [Mass/Vol] 15 mg/dL 7-18 [facility] Thin prep Papanicolaou smear with manual screeningOrdered By: Lin Johansen on 04-27-2023 Thin prep Papanicolaou smear with manual screening 10 U/L 15-37 [facility] Thin prep Papanicolaou smear with manual screening 15 5-15 [facility] Absolute lymphocyte countOrd ered By: Loki Soria on 04-26-2023 Lymphocytes Auto (Unsp spec) [#/Vol] 1.87 10*3/uL 0.83-4.51 [facility] Basophil percentageOrdered B y: Loki Soria on 04-26-2023 Basophils/100 WBC (Bld) 0.3 % 0-1 [facility] Chloride [Moles/Vol] 106 mmol/L 98-107 [facility] Eosinophils/100 WBC (Bld) 0.4 % 0-5 [facility] Glucose [Mass/Vol] 108 mg/dL 74-106 [facility] Comment on above: Fasting Glucose resu lt from 100 to 125 mg/dL suggests IMPAIRED HOMEOSTASIS per A.D.A. criteria. Neutrophils (Bld) [#/Vol] 10.8 10*3/uL 2.0-7.7 [facility] Neutrophils/100 WBC (Bld) 78.6 % 47-70 [facility] Potassium [Moles/Vol] 3.9 mmol/L 3.5-5.1 [facility] Sodium [Moles/Vol] 135 mmol/L 136-145 [facility] WBC (Bld) [#/Vol] 13.8 10*3/uL 4.4-11.0 [facility] Blood erythrocytes count (nu mber/volume)Ordered By: Loki Soria on 04-26-2023 RBC (Bld) [#/Vol] 4.80 10*6/uL 4.2-5.4 [facility] Blood hemoglobin measurement (mass/volume)Ordered By: Loki Soria on 04-26-2023 Hemoglobin (Bld) [Mass/Vol] 14.1 g/dL 12.0-15.0 [facility] Blood lymphocytes/100 leukoc ytesOrdered By: Loki Soria on 04-26-2023 Lymphocytes/100 WBC (Bld) 13.6 % 19-41 [facility] Blood monocytes/100 leukocyt esOrdered By: Loki Soria on 04-26-2023 Monocytes/100 WBC (Bld) 6.2 % 0-10 [facility] Blood platelet mean volumeOr dered By: Loki Soria on 04-26-2023 Platelet mean volume (Bld) [Entitic vol] 11.5 fL 6.2-12.0 [facility] Determination of erythrocyte mean corpuscular volume (MCV)Ordered By: Loki Soria on 04-26-2023 MCV (RBC) [Entitic vol] 88.8 fL 81-99 [facility] Hematocrit Auto (Bld) [Volum e fraction]Ordered By: Loki Soria on 04-26-2023 Hematocrit (Bld) [Volume fraction] 42.6 % 37-47 [facility] Laboratory - Chemistry and C hemistry - challengeOrdered By: Loki Soria on 04-26-2023 CO2 [Moles/Vol] 20.0 mmol/L 21.0-32.0 [facility] Urea nitrogen/Creatinine [Mass ratio] 10.5 mg/mg 10-20 [facility] Laboratory - Hematology and Cell countsOrdered By: Loki Soria on 04-26-2023 Erythrocyte distribution width (RBC) [Entitic vol] 45.3 fL 35.1-43.9 [facility] Erythrocyte distribution width (RBC) [Ratio] 13.9 % 11.6-14.6 [facility] Immature granulocytes/100 WBC (Bld) 0.900 % 0.0-0.9 [facility] Comment on above: IG% - Immature Granu locytes (promyelocytes, myelocytes and metamyelocytes) > 1% indicates that a LEFT SHIFT is Present. MCH (RBC) [Entitic mass] 29.4 pg 27.0-32.0 [facility] Nucleated RBC/100 WBC (Bld) [Ratio] 0 % 0-5 [facility] MCHC Auto (RBC) [Mass/Vol]Or dered By: Loki Soria on 04-26-2023 MCHC (RBC) [Mass/Vol] 33.1 g/dL 32-36 [facility] No Panel InformationOrdered By: Loki Soria on 04-26-2023 Estimated Creatinine Clearance Calc 91.18 ml/min [facility] Estimated GFR (MDRD) Amer 89 mL/min >60 [facility] Comment on above: GFR Calc Estimated GFR (MDRD) Non-Af Amer 74 mL/min >60 [facility] Comment on above: Non- GFR Calc Thyroid Stimulating Hormone (TSH) 3.85 uIU/mL 0.358-3.74 [facility] Troponin I High Sensitivity 4 pg/mL 3.0-54.0 [facility] Comment on above: Please Note: New Ivone t Units and Gender Specific Reference Ranges. For more information see Policy Stat Procedure Heath High Sensitivity Troponin (TNIH) and attachments. Platelets bldOrdered By: Ashley Soria on 04-26-2023 Platelets (Bld) [#/Vol] 158 10*3/uL 150-450 [facility] Serum or plasma calcium milli urement (mass/volume)Ordered By: Loki Soria on 04-26-2023 Calcium [Mass/Vol] 9.2 mg/dL 8.5-10.1 [facility] Serum or plasma creatinine m easurement (mass/volume)Ordered By: [facility] on 04-26-2023 Creatinine [Mass/Vol] 0.96 mg/dL 0.55-1.02 [facility] Comment on above: The validity of the calculated GFR & GFRAA in patients over 70 years has not been determined. Clinical correlation is essential. Serum or plasma urea nitroge n measurement (mass/volume)Ordered By: Albion Yang on 04-26-2023 Urea nitrogen [Mass/Vol] 10 mg/dL 7-18 [facility] Thin prep Papanicolaou smear with manual screeningOrdered By: [facility] on 04-26-2023 Thin prep Papanicolaou smear with manual screening 9 5-15 [facility] Absolute lymphocyte countOrd ered By: Greg Philip on 04-23-2023 Lymphocytes Auto (Unsp spec) [#/Vol] 1.93 10*3/uL 0.83-4.51 [facility] Basophil percentageOrdered B y: Greg Philip on 04-23-2023 Basophil percentage 5-10 SEEN /hpf 0-[address] [facility] Basophils/100 WBC (Bld) 0.3 % 0-1 [facility] Bilirubin [Mass/Vol] 0.30 mg/dL 0.20-1.00 [facility] Comment on above: For patients on eltr ombopag therapy, use of Dimension Heath TBIL is not recommended. Chloride [Moles/Vol] 114 mmol/L 98-107 [facility] Eosinophils/100 WBC (Bld) 0.6 % 0-5 [facility] Glucose [Mass/Vol] 60 mg/dL 74-106 [facility] Neutrophils (Bld) [#/Vol] 10.3 10*3/uL 2.0-7.7 [facility] Neutrophils/100 WBC (Bld) 77.2 % 47-70 [facility] Potassium [Moles/Vol] 3.3 mmol/L 3.5-5.1 [facility] Protein [Mass/Vol] 6.3 g/dL 6.4-8.2 [facility] Sodium [Moles/Vol] 143 mmol/L 136-145 [facility] WBC (Bld) [#/Vol] 13.4 10*3/uL 4.4-11.0 [facility] Beta hCG serum qualOrdered B y: Greg Philip on 04-23-2023 Beta HCG ( test) Ql Negative [facility] Bilirubin Test strip Ql (U)O rdered By: Greg Philip on 04-23-2023 Bilirubin Ql (U) Negative Negative [facility] Blood erythrocytes count (nu mber/volume)Ordered By: Greg Philip on 04-23-2023 RBC (Bld) [#/Vol] 4.34 10*6/uL 4.2-5.4 [facility] Blood hemoglobin measurement (mass/volume)Ordered By: Greg Philip on 04-23-2023 Hemoglobin (Bld) [Mass/Vol] 13.0 g/dL 12.0-15.0 [facility] Blood lymphocytes/100 leukoc ytesOrdered By: Greg Philip on 04-23-2023 Lymphocytes/100 WBC (Bld) 14.5 % 19-41 [facility] Blood monocytes/100 leukocyt esOrdered By: Greg Philip on 04-23-2023 Monocytes/100 WBC (Bld) 6.7 % 0-10 [facility] Blood platelet mean volumeOr dered By: Greg Philip on 04-23-2023 Platelet mean volume (Bld) [Entitic vol] 12.7 fL 6.2-12.0 [facility] Determination of erythrocyte mean corpuscular volume (MCV)Ordered By: Greg Philip on 04-23-2023 MCV (RBC) [Entitic vol] 91.7 fL 81-99 [facility] Glucose Glucometer (dC) [M ass/Vol]Ordered By: Greg Philip on 04-23-2023 Glucose [Mass/Vol] 108 mg/dL 74-106 [facility] Comment on above: MANAGEMENT OF PATIEN T CARE PER NURSING PROTOCOL Hematocrit Auto (Bld) [Volum e fraction]Ordered By: Greg Philip on 04-23-2023 Hematocrit (Bld) [Volume fraction] 39.8 % 37-47 [facility] INR in Blood by Coagulation assayOrdered By: Greg Philip on 04-23-2023 INR Coag (Bld) [Relative time] 1.1 {INR} [facility] Ketones Test strip Ql (U)Ord ered By: Greg Philip on 04-23-2023 Ketones Ql (U) Negative Negative [facility] Laboratory - Chemistry and C hemistry - challengeOrdered By: Greg Philip on 04-23-2023 ALP [Catalytic activity/Vol] 66 U/L 45-117 [facility] ALT [Catalytic activity/Vol] 31 U/L 13-56 [facility] CO2 [Moles/Vol] 25.0 mmol/L 21.0-32.0 [facility] Globulin (S) [Mass/Vol] 2.9 g/dL 2.2-4.2 [facility] Lipase [Catalytic activity/Vol] 19 U/L 13-75 [facility] Comment on above: Please note:LIPASE r evised reference range effective 22. New Lipase methodology. Expected to produce lower values than the previous assay method. NEW Reference Range: 13 - 75 U/L Urea nitrogen/Creatinine [Mass ratio] 23.1 mg/mg 10-20 [facility] Laboratory - CoagulationOrde red By: Greg Philip on 04-23-2023 aPTT Coag (Bld) [Time] 34.5 s 24.1-36.2 [facility] PT Coag (PPP) [Time] 14.4 s 11.7-14.9 [facility] Laboratory - Hematology and Cell countsOrdered By: Greg Philip on 04-23-2023 Erythrocyte distribution width (RBC) [Entitic vol] 47.8 fL 35.1-43.9 [facility] Erythrocyte distribution width (RBC) [Ratio] 14.1 % 11.6-14.6 [facility] Immature granulocytes/100 WBC (Bld) 0.700 % 0.0-0.9 [facility] Comment on above: IG% - Immature Granu locytes (promyelocytes, myelocytes and metamyelocytes) > 1% indicates that a LEFT SHIFT is Present. MCH (RBC) [Entitic mass] 30.0 pg 27.0-32.0 [facility] Nucleated RBC/100 WBC (Bld) [Ratio] 0 % 0-5 [facility] MCHC Auto (RBC) [Mass/Vol]Or dered By: Greg Philip on 04-23-2023 MCHC (RBC) [Mass/Vol] 32.7 g/dL 32-36 [facility] Mucus LM Ql (Urine sed)Order ed By: Greg Philip on 04-23-2023 Mucus Ql (Urine sed) 0 SEEN /hpf [facility] Nitrite Test strip Ql (U)Ord ered By: Greg Philip on 04-23-2023 Nitrite Ql (U) Negative Negative [facility] No Panel InformationOrdered By: Greg Philip on 04-23-2023 Estimated Creatinine Clearance Calc 156.31 ml/min [facility] Estimated GFR (MDRD) Amer 164 mL/min >60 [facility] Comment on above: GFR Calc Estimated GFR (MDRD) Non-Af Amer 135 mL/min >60 [facility] Comment on above: Non- GFR Calc Troponin I High Sensitivity 6 pg/mL 3.0-54.0 [facility] Comment on above: Please Note: New Ivone t Units and Gender Specific Reference Ranges. For more information see Policy Stat Procedure Heath High Sensitivity Troponin (TNIH) and attachments. Platelets bldOrdered By: Allyn Philip on 04-23-2023 Platelets (Bld) [#/Vol] 149 10*3/uL 150-450 [facility] Protein Test strip Ql (U)Ord ered By: Greg Philip on 04-23-2023 Protein Ql (U) Negative Negative [facility] Serum or plasma acetone milli urement (mass/volume)Ordered By: Greg Philip on 04-23-2023 Acetone [Mass/Vol] Negative NEG [facility] Serum or plasma albumin milli urement (mass/volume)Ordered By: Greg Philip on 04-23-2023 Albumin [Mass/Vol] 3.4 g/dL 3.2-5.0 [facility] Serum or plasma albumin/glob ulin mass ratioOrdered By: Greg Philip on 04-23-2023 Albumin/Globulin [Mass ratio] 1.2 {ratio} 0.9-2.4 [facility] Serum or plasma calcium milli urement (mass/volume)Ordered By: Greg Philip on 04-23-2023 Calcium [Mass/Vol] 8.6 mg/dL 8.5-10.1 [facility] Serum or plasma creatinine m easurement (mass/volume)Ordered By: Greg Philip on 04-23-2023 Creatinine [Mass/Vol] 0.56 mg/dL 0.55-1.02 [facility] Comment on above: The validity of the calculated GFR & GFRAA in patients over 70 years has not been determined. Clinical correlation is essential. Serum or plasma urea nitroge n measurement (mass/volume)Ordered By: Greg Philip on 04-23-2023 Urea nitrogen [Mass/Vol] 13 mg/dL 7-18 [facility] Squamous epithelial cells de tection in urine sediment by light microscopyOrdered By: Greg Philip on 04-23-2023 Epithelial cells.squamous LM Ql (Urine sed) 0 SEEN /hpf 5-10 [facility] Thin prep Papanicolaou smear with manual screeningOrdered By: Greg Philip on 04-23-2023 Thin prep Papanicolaou smear with manual screening 13 U/L 15-37 [facility] Thin prep Papanicolaou smear with manual screening 4 5-15 [facility] Urine blood detectionOrdered By: Greg Philip on 04-23-2023 RBC Ql (U) Negative Negative [facility] RBC Ql (U) 0 SEEN /hpf 0-5 [facility] Urine clarityOrdered By: Allyn Philip on 04-23-2023 Clarity (U) Clear Clear [facility] Urine color determinationOrd ered By: Greg Philip on 04-23-2023 Color (U) Yellow Yellow [facility] Urine glucose detectionOrder ed By: Greg Philip on 04-23-2023 Glucose Ql (U) 50 mg/dl Normal [facility] Urine leukocyte esterase det ection by dipstickOrdered By: Greg Philip on 04-23-2023 Leukocyte esterase Test strip Ql (U) 500 /ul Negative [facility] Urine pHOrdered By: Greg sun on 04-23-2023 pH (U) 8.0 [pH] 5.0 - 8.0 [facility] Urine sediment bacteria coun t by microscopy (number/high power field)Ordered By: Greg Philip on 04-23-2023 Bacteria LM.HPF (Urine sed) [#/Area] 1 /[HPF] None Seen [facility] Urine specific gravity measu rementOrdered By: Greg Philip on 04-23-2023 Specific gravity (U) [Rel density] 1.015 1.002-1.030 [facility] [facility] Urobilinogen Auto test strip Ql (U)Ordered By: Greg Philip on 04-23-2023 Urobilinogen Ql (U) Normal mg/dl Normal [facility] CBC W Auto Differential pane l (Bld)on 04-06-2023 Basophils (Bld) [#/Vol] 0.05 10*3/uL Normal <0.11 [facility] Comment on above: Order Comment: Speci men Type: BLOOD SPECIMEN Ordering Facility: [facility] Address: [address] [place] [place] [address] Performed By: #### 3 1201-7, 5195-3, 93408-3, SYPH #### [facility] CLIA [id number] [address] [place] [address] [place] Basophils/100 WBC (Bld) 0.4 % Normal [facility] Comment on above: Order Comment: Speci men Type: BLOOD SPECIMEN Ordering Facility: [facility] Address: [address] [place] [place] [address] Performed By: #### 3 1201-7, 5194-3, 97647-5, SYPH #### [facility] CLIA [id number] [address] [place] [address] [place] Differential cell count method Nom (Bld) Auto Normal [facility] Comment on above: Order Comment: Speci men Type: BLOOD SPECIMEN Ordering Facility: [facility] Address: [address] [place] [place] [address] Performed By: #### 3 1201-7, 5195-3, 32416-3, SYPH #### [facility] CLIA [id number] [address] [place] [address] [place] Eosinophils (Bld) [#/Vol] 0.03 10*3/uL Normal <0.46 [facility] Comment on above: Order Comment: Speci men Type: BLOOD SPECIMEN Ordering Facility: [facility] Address: [address] [place] [place] [address] Performed By: #### 3 1201-7, 5195-3, 96583-0, SYPH #### [facility] CLIA [id number] [address] [place] [address] [place] Eosinophils/100 WBC (Bld) 0.2 % Normal [facility] Comment on above: Order Comment: Speci men Type: BLOOD SPECIMEN Ordering Facility: [facility] Address: [address] [place] [place] [address] Performed By: #### 3 1201-7, 5195-3, 78826-0, SYPH #### [facility] CLIA [id number] [address] [place] [address] [place] Erythrocyte distribution width (RBC) [Ratio] 13.9 % Normal 11.5-15.0 [facility] Comment on above: Order Comment: Speci men Type: BLOOD SPECIMEN Ordering Facility: [facility] Address: [address] [place] [place] [address] Performed By: #### 3 1201-7, 5195-3, 97813-0, SYPH #### [facility] CLIA [id number] [address] [place] [address] [place] Hematocrit (Bld) [Volume fraction] 43.8 % Normal 36.0-46.0 [facility] Comment on above: Order Comment: Speci men Type: BLOOD SPECIMEN Ordering Facility: [facility] Address: [address] [place] [place] [address] Performed By: #### 3 1201-7, 5195-3, 64006-8, SYPH #### [facility] CLIA [id number] [address] [place] [address] [place] Hemoglobin (Bld) [Mass/Vol] 14.4 g/dL Normal 11.5-15.5 [facility] Comment on above: Order Comment: Speci men Type: BLOOD SPECIMEN Ordering Facility: [facility] Address: [address] [place] [address] Performed By: #### 3 1201-7, 5195-3, 11877-1, SYPH #### [facility] CLIA [id number] [address] [place] [address] [place] Immature granulocytes (Bld) [#/Vol] 0.11 10*3/uL High <0.10 [facility] Comment on above: Order Comment: Speci men Type: BLOOD SPECIMEN Ordering Facility: [facility] Address: [address] [place] [place] [address] Performed By: #### 3 1201-7, 5195-3, 61943-7, SYPH #### [facility] CLIA [id number] [address] [place] [address] [place] Immature granulocytes/100 WBC (Bld) 0.8 % Normal [facility] Comment on above: Order Comment: Speci men Type: BLOOD SPECIMEN Ordering Facility: [facility] Address: [address] [place] [place] [address] Performed By: #### 3 1201-7, 5195-3, 17152-0, SYPH #### [facility] CLIA [id number] [address] [place] [address] [place] Lymphocytes (Bld) [#/Vol] 2.59 10*3/uL Normal 1.00-4.00 [facility] Comment on above: Order Comment: Speci men Type: BLOOD SPECIMEN Ordering Facility: [facility] Address: [address] [place] [place] [address] Performed By: #### 3 1201-7, 5194-3, 16719-2, SYPH #### [facility] CLIA [id number] [address] [place] [address] [place] Lymphocytes/100 WBC (Bld) 19.8 % Normal [facility] Comment on above: Order Comment: Speci men Type: BLOOD SPECIMEN Ordering Facility: [facility] Address: [address] [address] Performed By: #### 3 1201-7, 5195-3, 09138-8, SYPH #### [facility] CLIA [id number] [address] [place] [address] [place] MCH (RBC) [Entitic mass] 29.1 pg Normal 26.0-34.0 [facility] Comment on above: Order Comment: Speci men Type: BLOOD SPECIMEN Ordering Facility: [facility] Address: [address] [place] [place] [address] Performed By: #### 3 1201-7, 5195-3, 64811-4, SYPH #### [facility] CLIA [id number] [address] [place] [address] [place] MCHC (RBC) [Mass/Vol] 32.9 g/dL Normal 30.5-36.[address] [facility] Comment on above: Order Comment: Speci men Type: BLOOD SPECIMEN Ordering Facility: [facility] Address: [address] [place] [place] [address] Performed By: #### 3 1201-7, 5195-3, 04912-5, SYPH #### [facility] CLIA [id number] [address] [place] [address] [place] MCV (RBC) [Entitic vol] 88.5 fL Normal 80.0-100.0 [facility] Comment on above: Order Comment: Speci men Type: BLOOD SPECIMEN Ordering Facility: [facility] Address: [address] [place] [place] [address] Performed By: #### 3 1201-7, 5195-3, 66016-4, SYPH #### [facility] CLIA [id number] [address] [place] [address] [place] Monocytes (Bld) [#/Vol] 0.76 10*3/uL Normal <0.87 [facility] Comment on above: Order Comment: Speci men Type: BLOOD SPECIMEN Ordering Facility: [facility] Address: [address] Performed By: #### 3 1201-7, 5195-3, 14782-6, SYPH #### [facility] CLIA [id number] [address] [place] [address] [place] Monocytes/100 WBC (Bld) 5.8 % Normal [facility] Comment on above: Order Comment: Speci men Type: BLOOD SPECIMEN Ordering Facility: [facility] Address: [address] [address] Performed By: #### 3 1201-7, 5195-3, 11448-0, SYPH #### [facility] CLIA [id number] [address] [place] [address] [place] Neutrophils (Bld) [#/Vol] 9.56 10*3/uL High 1.45-7.50 [facility] Comment on above: Order Comment: Speci men Type: BLOOD SPECIMEN Ordering Facility: [facility] Address: [address] [address] Performed By: #### 3 1201-7, 5195-3, 40267-2, SYPH #### [facility] CLIA [id number] [address] [place] [address] [place] Neutrophils/100 WBC (Bld) 73.0 % Normal [facility] Comment on above: Order Comment: Speci men Type: BLOOD SPECIMEN Ordering Facility: [facility] Address: [address] Performed By: #### 3 1201-7, 5195-3, 11381-2, SYPH #### [facility] CLIA [id number] [address] [place], [place] [address] [place] Nucleated RBC (Bld) [#/Vol] 10*3/uL Normal <0.01 [facility] Comment on above: Order Comment: Speci men Type: BLOOD SPECIMEN Ordering Facility: [facility] Address: [address] [place] [address] Performed By: #### 3 1201-7, 5195-3, 45378-3, SYPH #### [facility] CLIA [id number] [address] [place] [address] [place] Nucleated RBC/100 WBC (Bld) [Ratio] 0.0 /100 WBC Normal [facility] Comment on above: Order Comment: Speci men Type: BLOOD SPECIMEN Ordering Facility: [facility] Address: [address] [place] [place] [address] Performed By: #### 3 1201-7, 5195-3, 16476-1, SYPH #### [facility] CLIA [id number] [address] [place] [address] [place] Platelet mean volume (Bld) [Entitic vol] 12.0 fL Normal 9.0-12.7 [facility] Comment on above: Order Comment: Speci men Type: BLOOD SPECIMEN Ordering Facility: [facility] Address: [address] [place] [place] [address] Performed By: #### 3 1201-7, 5195-3, 83958-4, SYPH #### [facility] CLIA [id number] [address] [place] [address] [place] Platelets (Bld) [#/Vol] 180 10*3/uL Normal 150-400 [facility] Comment on above: Order Comment: Speci men Type: BLOOD SPECIMEN Ordering Facility: [facility] Address: [address] [place] [place] [address] Performed By: #### 3 1201-7, 5-3, 91106-7, SYPH #### [facility] CLIA [id number] [address] [place] [address] [place] RBC (Bld) [#/Vol] 4.95 10*6/uL Normal 3.90-5.20 [facility] Comment on above: Order Comment: Speci men Type: BLOOD SPECIMEN Ordering Facility: [facility] Address: [address] [place] [place] [address] Performed By: #### 3 1201-7, 5195-3, 33210-5, SYPH #### [facility] CLIA [id number] [address] [place] [address] [place] WBC (Bld) [#/Vol] 13.10 10*3/uL High 3.70-11.00 [facility] Comment on above: Order Comment: Speci men Type: BLOOD SPECIMEN Ordering Facility: [facility] Address: [place] [address] Performed By: #### 3 1201-7, 5195-3, 93068-4, [facility] #### [facility] CLIA [id number] [address] [id number] [place] CT ABD/PEL W IVCONon 023 CT ABD/PEL W IVCON * * *Final Report* * * DATE OF EXAM: Apr 06 2023 12:56AM [facility] 0530 - CT ABD/PEL W IVCON [...] Likely right lower quadrant ventral injection sites/granuloma. Sterile Technician (topogram) images: No additional findings. IMPRESSION: 1. No acute abnormality. Masonry Teacher: PSCB Transcribe Date/Time: Apr 06 2023 1:25A Dictated by : LIANG SLAUGHTER MD This examination was interpreted and the report reviewed and electronically signed by: LIANG SLAUGHTER MD on Apr 06 2023 1:30AM EST [id number] Normal [facility] Comprehensive metabolic 2000 panelon 04-06-2023 Albumin [Mass/Vol] 4.2 g/dL Normal 3.2-5.0 [facility] Comment on above: Order Comment: Speci jeb Type: BLOOD SPECIMEN Ordering Facility: [facility] Address: [address] [place], [place] [address] Performed By: #### 3 1201-7, 5195-3, 10452-1, SYPH #### [facility] CLIA [id number] [address] [place] [address] [place] ALP [Catalytic activity/Vol] 85 U/L Normal 45-117 [facility] Comment on above: Order Comment: Speci men Type: BLOOD SPECIMEN Ordering Facility: [facility] Address: [address] [place], [place] [address] Performed By: #### 3 1201-7, 5195-3, 96960-7, SYPH #### [facility] CLIA [id number] [address] [place] [address] [place] ALT [Catalytic activity/Vol] 87 U/L High 13-61 [facility] Comment on above: Order Comment: Jon russ Type: BLOOD SPECIMEN Ordering Facility: [facility] Address: [address] [place], [place] [address] Result Comment: Resu lts may be falsely depressed after the administration of Sulfasalazine and/or Sulfapyridine. Performed By: #### 3 1201-7, 5195-3, 07539-8, SYPH #### [facility] CLIA [id number] [address] [place] [address] [place] Anion gap [Moles/Vol] 8 mmol/L Normal 5-[address] [facility] Comment on above: Order Comment: Speci men Type: BLOOD SPECIMEN Ordering Facility: [facility] Address: [address] [place] [place] [address] Performed By: #### 3 1201-7, 5195-3, 44775-2, SYPH #### [facility] CLIA [id number] [address] [place] [address] [place] AST [Catalytic activity/Vol] 60 U/L High 8-34 [facility] Comment on above: Order Comment: Speci men Type: BLOOD SPECIMEN Ordering Facility: [facility] Address: [address] [place] [place] [address] Result Comment: Resu lts may be falsely depressed after the administration of Sulfasalazine and/or Sulfapyridine. Performed By: #### 3 1201-7, 5195-3, 22417-2, SYPH #### [facility] CLIA [id number] [address] [place] [address] [place] Bilirubin [Mass/Vol] 0.7 mg/dL Normal 0.2-1.0 [facility] Comment on above: Order Comment: Speci men Type: BLOOD SPECIMEN Ordering Facility: [facility] Address: [address] [place] [place] [address] Performed By: #### 3 1201-7, 5195-3, 47677-6, SYPH #### [facility] CLIA [id number] [address] [place] [address] [place] Calcium [Mass/Vol] 9.6 mg/dL Normal 8.5-10.5 [facility] Comment on above: Order Comment: Speci men Type: BLOOD SPECIMEN Ordering Facility: [facility] Address: [address] [place] [place] [address] Performed By: #### 3 1201-7, 5195-3, 31005-0, SYPH #### [facility] CLIA [id number] [address] [place] [address] [place] Chloride [Moles/Vol] 107 mmol/L Normal 98-107 [facility] Comment on above: Order Comment: Speci men Type: BLOOD SPECIMEN Ordering Facility: [facility] Address: [address] Performed By: #### 3 1201-7, 5195-3, 13625-7, SYPH #### [facility] CLIA [id number] [address] [place] [address] [place] CO2 [Moles/Vol] 26 mmol/L Normal 21-32 [facility] Comment on above: Order Comment: Speci men Type: BLOOD SPECIMEN Ordering Facility: [facility] Address: [address] [address] Performed By: #### 3 1201-7, 5195-3, 61346-5, SYPH #### [facility] CLIA [id number] [address] [place] [address] [place] Creatinine [Mass/Vol] 0.69 mg/dL Normal 0.51-0.[address] [facility] Comment on above: Order Comment: Speci men Type: BLOOD SPECIMEN Ordering Facility: [facility] Address: [address] [place] [place] [address] Result Comment: Cleopatra ents receiving either N-Acetylcysteine (NAC) or Metamizole prior to venipuncture, may have falsely depressed results. Performed By: #### 3 1201-7, 5195-3, 26334-6, SYPH #### [facility] CLIA [id number] [address] [place] [address] OF [facility] ESTIMATED GLOMERULAR FILTRATION RATE 121 mL/min/1.73m??? Normal >=60 [facility] Comment on above: Order Comment: Speci men Type: BLOOD SPECIMEN Ordering Facility: [facility] Address: [address] [place] [place] [address] Result Comment: Janett mated Glomerular Filtration Rate [...] GFR. Performed By: #### 3 1201-7, 5195-3, 30534-7, SYPH #### [facility] CLIA [id number] [address] [place], [place] [address] [place] Glucose [Mass/Vol] 79 mg/dL Normal 70-100 [facility] Comment on above: Order Comment: Jon russ Type: BLOOD SPECIMEN Ordering Facility: [facility] Address: [address] [place], [place] [address] Result Comment: The [place] [employer] (ADA) provides guidance for cutoff [...] Standards of Medical Care in Diabetes 2016, [place] [employer]. Diabetes Care. 2016.39(Suppl 1). Results may be falsely elevated after the administration of Sulfapyridine. Results may be falsely depressed after the administration of Sulfasalazine. Performed By: #### 3 1201-7, 5195-3, 01108-4, SYPH #### [facility] CLIA [id number] [address] [place], [place] [address] [place] Potassium [Moles/Vol] 4.0 mmol/L Normal 3.5-5.[address] [facility] Comment on above: Order Comment: Jon russ Type: BLOOD SPECIMEN Ordering Facility: [facility] Address: [place] [address] Performed By: #### 3 1201-7, 5195-3, 12792-7, SYPH #### [facility] CLIA [id number] [address] [place], [place] [address] [place] Protein [Mass/Vol] 7.2 g/dL Normal 6.0-8.5 [facility] Comment on above: Order Comment: Speci men Type: BLOOD SPECIMEN Ordering Facility: [facility] Address: [address] [place], [place] [id number] Performed By: #### 3 1201-7, 5195-3, 75506-8, SYPH #### [facility] CLIA [id number] [address] [place] [address] Sodium [Moles/Vol] 141 mmol/L Normal 136-145 [facility] Comment on above: Order Comment: Speci men Type: BLOOD SPECIMEN Ordering Facility: [facility] Address: [address] [place], [place] [id number] Performed By: #### 3 1201-7, 5195-3, 50900-5, SYPH #### [facility] CLIA [id number] [address] [place] [address] Urea nitrogen [Mass/Vol] 15 mg/dL Normal 7-26 [facility] Comment on above: Order Comment: Speci men Type: BLOOD SPECIMEN Ordering Facility: [facility] Address: [address] [place], [place] [id number] Performed By: #### 3 1201-7, 5195-3, 21095-6, SYPH #### [facility] CLIA [id number] [address] [place] [address] ED PROV NOTEon 04-06-2023 ED PROV NOTE HNO ID: [id number] Author: Greg Zimmerman DO Service: Emergency Medicine [...] GREG ZIMMERMAN 04/06/23 0236 GREG ZIMMERMAN 04/06/234 [facility] ED PROV NOTE HNO ID: [id number] Author: Jorge Alberto Nj MD Service: ? [...] be ki (more content not included)... Normal [facility] ED Triage Noteon 04-06-2023 ED Triage Note HNO ID: [id number] Author: Merced Mora PA-C Service: ? Author Type: Physician Systems Librarian Type: ED Triage Notes Filed: 04/05/2023 10:31 [...] CMP Urinalysis SIGNATURE: Merced Mora PA-C Normal [facility] HCG QUAL BLDon 04-06-2023 HCG, QUALITATIVE Negative Normal Negative [facility] Comment on above: Order Comment: Speci men Type: BLOOD SPECIMEN Ordering Facility: [facility] Address: [address] [place] [place] [address] Performed By: #### 3 1201-7, 5195-3, 90785-5, SYPH #### [facility] CLIA [id number] [address] [place] [address] OF [place] Urinalysis complete panel (U )on 04-06-2023 Bacteria LM.HPF (Urine sed) [#/Area] Rare Abnormal None Seen [facility] Comment on above: Order Comment: Speci men Type: BLOOD SPECIMEN Ordering Facility: [facility] Address: [address] [place] [place] [address] Performed By: #### 3 1201-7, 5195-3, 25476-6, SYPH #### [facility] CLIA [id number] [address] [place] [address] [place] Bilirubin Ql (U) Negative Normal Negative [facility] Comment on above: Order Comment: Speci men Type: BLOOD SPECIMEN Ordering Facility: [facility] Address: [address] [place] [place] [address] Performed By: #### 3 1201-7, 5-3, 23450-6, SYPH #### [facility] CLIA [id number] [address] [place] [address] [place] Clarity (Unsp spec) Clear Normal Clear [facility] Comment on above: Order Comment: Speci men Type: BLOOD SPECIMEN Ordering Facility: [facility] Address: [address] [place] [place] [address] Performed By: #### 3 1201-7, 5195-3, 22217-0, SYPH #### [facility] CLIA [id number] [address] [place] [address] [place] Color (U) Yellow Normal Yellow [facility] Comment on above: Order Comment: Speci men Type: BLOOD SPECIMEN Ordering Facility: [facility] Address: [address] [address] Performed By: #### 3 1201-7, 5195-3, 20405-7, SYPH #### [facility] CLIA [id number] [address] [place] [address] [place] Epithelial cells LM.HPF (Urine sed) [#/Area] Many Normal [facility] Comment on above: Order Comment: Speci men Type: BLOOD SPECIMEN Ordering Facility: [facility] Address: [address] [address] Performed By: #### 3 1201-7, 5-3, 78141-5, SYPH #### [facility] CLIA [id number] [address] [place] [address] [place] Glucose Test strip (U) [Mass/Vol] Negative Normal Negative [facility] Comment on above: Order Comment: Speci men Type: BLOOD SPECIMEN Ordering Facility: [facility] Address: [address] [place] [place] [address] Performed By: #### 3 1201-7, 5-3, 76304-9, SYPH #### [facility] CLIA [id number] [address] [place] [address] [place] Hemoglobin Ql (U) Negative Normal Negative [facility] Comment on above: Order Comment: Speci men Type: BLOOD SPECIMEN Ordering Facility: [facility] Address: [address] [place] [place] [address] Performed By: #### 3 1201-7, 5-3, 46621-5, SYPH #### [facility] CLIA [id number] [address] [place] [address] [place] Ketones Ql (U) Trace Abnormal Negative [facility] Comment on above: Order Comment: Speci men Type: BLOOD SPECIMEN Ordering Facility: [facility] Address: [address] [address] Performed By: #### 3 1201-7, 5-3, 84184-6, SYPH #### [facility] CLIA [id number] [address] [place] [address] Leukocyte esterase Test strip Ql (U) 1+ Abnormal Negative [facility] Comment on above: Order Comment: Speci men Type: BLOOD SPECIMEN Ordering Facility: [facility] Address: [address] [place] [address] Performed By: #### 3 1201-7, 5195-3, 86174-6, SYPH #### [facility] CLIA [id number] [address] [place] [address] [place] Nitrite Ql (U) Negative Normal Negative [facility] Comment on above: Order Comment: Speci men Type: BLOOD SPECIMEN Ordering Facility: [facility] Address: [address] [place] [address] Performed By: #### 3 1201-7, 5195-3, 62324-2, SYPH #### [facility] CLIA [id number] [address] [place] [address] [place] pH (U) 5.0 [pH] Normal 5.0-8.0 [facility] Comment on above: Order Comment: Speci men Type: BLOOD SPECIMEN Ordering Facility: [facility] Address: [address] [place] [address] Performed By: #### 3 1201-7, 5-3, 02623-2, SYPH #### [facility] CLIA [id number] [address] [place] [address] [place] Protein (U) [Mass/Vol] Negative Normal Negative [facility] Comment on above: Order Comment: Speci men Type: BLOOD SPECIMEN Ordering Facility: [facility] Address: [address] [place] [address] Performed By: #### 3 1201-7, 5-3, 88033-4, SYPH #### [facility] CLIA [id number] [address] [place] [address] [place] RBC LM.HPF (Urine sed) [#/Area] 3-5 /HPF Abnormal 0-3 /HPF [facility] Comment on above: Order Comment: Speci men Type: BLOOD SPECIMEN Ordering Facility: [facility] Address: [address] [place] [place] [address] Performed By: #### 3 1201-7, 5195-3, 02372-4, SYPH #### [facility] CLIA [id number] [address] [place] [address] Specific gravity (U) [Rel density] >1.030 High 1.005-1.030 [facility] Comment on above: Order Comment: Speci men Type: BLOOD SPECIMEN Ordering Facility: [facility] Address: [address] [place] [place] [address] Performed By: #### 3 1201-7, 5195-3, 67397-2, SYPH #### [facility] CLIA [id number] [address] [place] [address] Urobilinogen Ql (U) Negative Normal Negative [facility] Comment on above: Order Comment: Speci men Type: BLOOD SPECIMEN Ordering Facility: [facility] Address: [address] [place] [place] [address] Performed By: #### 3 1201-7, 5195-3, 24048-4, SYPH #### [facility] CLIA [id number] [address] [place] [address] WBC LM.HPF (Urine sed) [#/Area] 6-10 /HPF Abnormal 0-5 /HPF [facility] Comment on above: Order Comment: Speci men Type: BLOOD SPECIMEN Ordering Facility: [facility] Address: [address] [place] [address] Performed By: #### 3 1201-7, 5195-3, 57031-2, SYPH #### [facility] CLIA [id number] [address] [place] [address] ED NOTEon 04-05-2023 ED NOTE HNO ID: [id number] Author: Ten Mao RN Service: Nursing Author Type: Registered Nurse Type: ED Notes Filed: 04/05/2023 9:44 PM Note Text: PT presents to ED with c/o left hip pain, back pain and pelvic pain. Reports hip pain started first this morning. Pain now radiating into back and pelvic area. Endorses nausea. Normal [facility] Basic metabolic 2000 panelon 03-22-2023 Anion gap [Moles/Vol] 7 mmol/L Low 10 - 20 mmol/L [facility] Calcium [Mass/Vol] 8.0 mg/dL Low 8.4 - 10. 2 mg/dL [facility] Chloride [Moles/Vol] 110 mmol/L High 98 - 10 8 mmol/L [facility] Creatinine [Mass/Vol] 0.81 mg/dL 0.40 - 1.10 mg/dL [facility] GFR/1.73 sq M.predicted CKD-EPI (S/P/Bld) [Vol rate/Area] 102 - PINF [facility] Comment on above: Estimated GFR was ca lculated using the 2020 CKD-EPI creatinine equation. Glucose [Mass/Vol] 251 mg/dL High 65 - 99 mg/dL [facility] [Moles/Vol] 26 mmol/L 21 - 32 mmol/L [facility] Interpretation and review of laboratory results Abnormal [facility] Potassium [Moles/Vol] 3.2 mmol/L Low 3.5 - 5.1 mmol/L [facility] Sodium [Moles/Vol] 140 mmol/L 135 - 145 mmol/L [facility] Urea nitrogen [Mass/Vol] 8 mg/dL 8 - 25 mg/dL [facility] Urea nitrogen/Creatinine [Mass ratio] 9.9 mg/mg Low 10.0 - 20.0 [facility] has implemented the eGFR calculation approach that does not have a coefficient for race that conforms to the NKF-ASN Task Force Recommendations. [facility] CBC Auto Differentialon 02-26 Basophils (Bld) [#/Vol] 0.02 10*3/uL [facility] Basophils/100 WBC (Bld) 0.2 % [facility] Eosinophils (Bld) [#/Vol] 0.04 10*3/uL [facility] Eosinophils/100 WBC (Bld) 0.4 % [facility] Erythrocyte distribution width (RBC) [Entitic vol] 13.9 % 11.6 - 14.8 % [facility] Hematocrit (Bld) [Volume fraction] 37.4 % 36.0 - 46.0 % [facility] Hemoglobin (Bld) [Mass/Vol] 12.4 g/dL 12.0 - 16.0 g/dL [facility] Immature granulocytes (Bld) [#/Vol] 0.07 10*3/uL [facility] Immature granulocytes/100 WBC (Bld) 0.70 % [facility] Comment on above: The IG parameter is the percentage of metamyelocytes, myelocytes and promyelocytes. An immature granulocyte count (IG) of 1% or more suggests the possibility of infection, an IG count of 3% is very likely related to an infection. Lymphocytes (Bld) [#/Vol] 2.55 10*3/uL [facility] Lymphocytes/100 WBC (Bld) 27.1 % [facility] MCH (RBC) [Entitic mass] 29.1 pg 26.0 - 34.[address] [facility] MCHC (RBC) [Mass/Vol] 33.2 g/dL 31.0 - 37.0 g/dL [facility] MCV (RBC) [Entitic vol] 87.8 fL 80.0 - 100.[address] [facility] Monocytes (Bld) [#/Vol] 0.57 10*3/uL [facility] Monocytes/100 WBC (Bld) 6.1 % [facility] Neutrophils (Bld) [#/Vol] 6.16 10*3/uL [facility] Neutrophils/100 WBC (Bld) 65.5 % [facility] Nucleated RBC (Bld) [#/Vol] 0.00 10*3/uL [facility] Nucleated RBC/100 WBC (Bld) [Ratio] 0.0 % [facility] Platelet mean volume (Bld) [Entitic vol] 11.8 fL 9.4 - 12.[address] [facility] Platelets (Bld) [#/Vol] 165 10*3/uL [facility] RBC (Bld) [#/Vol] 4.26 10*6/uL [facility] WBC (Bld) [#/Vol] 9.41 10*3/uL [facility] Glucose (Bld) [Mass/Vol]on 0 03-22-2023 Glucose [Mass/Vol] 101 mg/dL High 65 - 99 mg/[facility] Interpretation and review of laboratory results Abnormal [facility] Glucose [Mass/Vol] 117 mg/dL High 65 - 99 mg/dL [facility] Interpretation and review of laboratory results Abnormal [facility] Glucose [Mass/Vol] 182 mg/dL High 65 - 99 mg/dL [facility] Interpretation and review of laboratory results Abnormal [facility] Glucose [Mass/Vol] 168 mg/dL High 65 - 99 mg/dL [facility] Interpretation and review of laboratory results Abnormal [facility] Glucose [Mass/Vol] 77 mg/dL 65 - 99 mg/dL [facility] Interpretation and review of laboratory results Normal [facility] Glucose [Mass/Vol] 42 mg/dL Low 65 - 99 mg/dL [facility] Interpretation and review of laboratory results Abnormal [facility] Magnesium Levelon 03-22-2023 Magnesium [Mass/Vol] 2.0 mg/dL 1.6 - 2 .4 mg/dL [facility] Magnesium [Mass/Vol]on 03-22 Interpretation and review of laboratory results Normal [facility] No Panel Informationon 03-22 [facility] Phosphate [Mass/Vol]on 03-22 Interpretation and review of laboratory results Abnormal [facility] Phosphoruson 03-22-2023 Phosphate [Mass/Vol] 2.4 mg/dL Low 2.7 - 4 .5 mg/dL [facility] CBC panel Auto (Bld)on 03-21 Erythrocyte distribution width (RBC) [Entitic vol] 14.0 % 11.6 - 14.8 % [facility] Hematocrit (Bld) [Volume fraction] 35.7 % Low 36.0 - 46.0 % [facility] Hemoglobin (Bld) [Mass/Vol] 11.7 g/dL Low 12.0 - 16.0 g/dL [facility] Interpretation and review of laboratory results Abnormal [facility] MCH (RBC) [Entitic mass] 29.2 pg 26.0 - 34.[address] [facility] MCHC (RBC) [Mass/Vol] 32.8 g/dL 31.0 - 37.0 g/dL [facility] MCV (RBC) [Entitic vol] 89.0 fL 80.0 - 100.[address] [facility] Nucleated RBC (Bld) [#/Vol] 0.00 10*3/uL [facility] Nucleated RBC/100 WBC (Bld) [Ratio] 0.0 % [facility] Platelet mean volume (Bld) [Entitic vol] 12.9 fL High 9.4 - 12.[address] [facility] Platelets (Bld) [#/Vol] 169 10*3/uL [facility] RBC (Bld) [#/Vol] 4.01 10*6/uL [facility] WBC (Bld) [#/Vol] 20.82 10*3/uL High [facility] Comprehensive metabolic 2000 panelon 03-21-2023 Albumin [Mass/Vol] 3.3 g/dL 3.2 - 5.2 g/dL [facility] ALP [Catalytic activity/Vol] 71 U/L 40 - 140 U/L [facility] ALT [Catalytic activity/Vol] 20 U/L 14 - 65 U/L [facility] Anion gap [Moles/Vol] 16 mmol/L 10 - 20 mmol/L [facility] AST [Catalytic activity/Vol] 10 U/L 0 - 45 U/L [facility] Bilirubin [Mass/Vol] 0.8 mg/dL 0.0 - 1 .3 mg/dL [facility] Calcium [Mass/Vol] 8.4 mg/dL 8.4 - 10. 2 mg/dL [facility] Chloride [Moles/Vol] 111 mmol/L High 98 - 10 8 mmol/L [facility] Creatinine [Mass/Vol] 0.81 mg/dL 0.40 - 1.10 mg/dL [facility] GFR/1.73 sq M.predicted CKD-EPI (S/P/Bld) [Vol rate/Area] 102 - PINF [facility] Comment on above: Estimated GFR was ca lculated using the 2020 CKD-EPI creatinine equation. Glucose [Mass/Vol] 162 mg/dL High 65 - 99 mg/dL [facility] HCO3 [Moles/Vol] 18 mmol/L Low 21 - 32 mmol/L [facility] Interpretation and review of laboratory results Abnormal [facility] Potassium [Moles/Vol] 3.6 mmol/L 3.5 - 5.1 mmol/L [facility] Protein [Mass/Vol] 6.3 g/dL 6.0 - 8.0 g/dL [facility] Sodium [Moles/Vol] 141 mmol/L 135 - 145 mmol/L [facility] Urea nitrogen [Mass/Vol] 11 mg/dL 8 - 25 mg/dL [facility] Urea nitrogen/Creatinine [Mass ratio] 13.6 mg/mg 10.0 - 20.0 [facility] has implemented the eGFR calculation approach that does not have a coefficient for race that conforms to the NKF-ASN Task Force Recommendations. [facility] Glucose (Bld) [Mass/Vol]on 0 03-21-2023 Glucose [Mass/Vol] 179 mg/dL High 65 - 99 mg/dL [facility] Interpretation and review of laboratory results Abnormal [facility] Glucose [Mass/Vol] 102 mg/dL High 65 - 99 mg/dL [facility] Interpretation and review of laboratory results Abnormal [facility] Glucose [Mass/Vol] 80 mg/dL 65 - 99 mg/dL [facility] Interpretation and review of laboratory results Normal [facility] Glucose [Mass/Vol] 113 mg/dL High 65 - 99 mg/dL [facility] Interpretation and review of laboratory results Abnormal [facility] Magnesiumon 03-21-2023 Magnesium [Mass/Vol] 2.4 mg/dL 1.6 - 2 .4 mg/dL [facility] Magnesium [Mass/Vol]on 03-21 Interpretation and review of laboratory results Normal [facility] No Panel Informationon 03-21 [facility] Phosphate [Mass/Vol]on 03-21 Interpretation and review of laboratory results Normal [facility] Phosphoruson 03-21-2023 Phosphate [Mass/Vol] 2.7 mg/dL 2.7 - 4 .5 mg/dL [facility] Basic metabolic 1998 panelon 03-20-2023 Anion gap [Moles/Vol] 12 mmol/L 10 - 20 mmol/L [facility] Chloride [Moles/Vol] 108 mmol/L 98 - 10 8 mmol/L [facility] Creatinine [Mass/Vol] 0.98 mg/dL 0.40 - 1.10 mg/dL [facility] GFR/1.73 sq M.predicted CKD-EPI (S/P/Bld) [Vol rate/Area] 81 - PINF [facility] Comment on above: Estimated GFR was ca lculated using the 2020 CKD-EPI creatinine equation. Glucose [Mass/Vol] 247 mg/dL High 65 - 99 mg/dL [facility] HCO3 [Moles/Vol] 24 mmol/L 21 - 32 mmol/L [facility] Potassium [Moles/Vol] 3.5 mmol/L 3.5 - 5.1 mmol/L [facility] Sodium [Moles/Vol] 140 mmol/L 135 - 145 mmol/L [facility] Urea nitrogen [Mass/Vol] 15 mg/dL 8 - 25 mg/dL [facility] Urea nitrogen/Creatinine [Mass ratio] 15.3 mg/mg 10.0 - 20.0 [facility] has implemented the eGFR calculation approach that does not have a coefficient for race that conforms to the NKF-ASN Task Force Recommendations. [facility] Basic metabolic 2000 panelon 03-20-2023 Anion gap [Moles/Vol] 13 mmol/L 10 - 20 mmol/L [facility] Calcium [Mass/Vol] 8.1 mg/dL Low 8.4 - 10. 2 mg/dL [facility] Chloride [Moles/Vol] 106 mmol/L 98 - 10 8 mmol/L [facility] Creatinine [Mass/Vol] 0.86 mg/dL 0.40 - 1.10 mg/dL [facility] GFR/1.73 sq M.predicted CKD-EPI (S/P/Bld) [Vol rate/Area] 95 - PINF [facility] Comment on above: Estimated GFR was ca lculated using the 2020 CKD-EPI creatinine equation. Glucose [Mass/Vol] 316 mg/dL High 65 - 99 mg/dL [facility] HCO3 [Moles/Vol] 21 mmol/L 21 - 32 mmol/L [facility] Interpretation and review of laboratory results Abnormal [facility] Potassium [Moles/Vol] 4.0 mmol/L 3.5 - 5.1 mmol/L [facility] Sodium [Moles/Vol] 136 mmol/L 135 - 145 mmol/L [facility] Urea nitrogen [Mass/Vol] 12 mg/dL 8 - 25 mg/dL [facility] Urea nitrogen/Creatinine [Mass ratio] 14.0 mg/mg 10.0 - 20.0 [facility] has implemented the eGFR calculation approach that does not have a coefficient for race that conforms to the NKF-ASN Task Force Recommendations. [facility] Beta HCG ( test) Ql on 03-20-2023 Interpretation and review of laboratory results Normal [facility] Negative: The result is less than or equal to 5 mIU/mL of HCG. [facility] Beta hydroxybutyrate [Moles/ Vol]on 03-20-2023 Interpretation and review of laboratory results Abnormal [facility] Beta-Hydroxybutyrateon 03-20 Beta hydroxybutyrate [Moles/Vol] 1.8 mmol/L High 0.0 - 0.3 mmol/L [facility] CBC Auto Differentialon 02-26 Basophils (Bld) [#/Vol] 0.04 10*3/uL [facility] Basophils/100 WBC (Bld) 0.4 % [facility] Eosinophils (Bld) [#/Vol] 0.03 10*3/uL [facility] Eosinophils/100 WBC (Bld) 0.3 % [facility] Erythrocyte distribution width (RBC) [Entitic vol] 13.7 % 11.6 - 14.8 % [facility] Hematocrit (Bld) [Volume fraction] 38.9 % 36.0 - 46.0 % [facility] Hemoglobin (Bld) [Mass/Vol] 13.0 g/dL 12.0 - 16.0 g/dL [facility] Immature granulocytes (Bld) [#/Vol] 0.08 10*3/uL [facility] Immature granulocytes/100 WBC (Bld) 0.80 % [facility] Comment on above: The IG parameter is the percentage of metamyelocytes, myelocytes and promyelocytes. An immature granulocyte count (IG) of 1% or more suggests the possibility of infection, an IG count of 3% is very likely related to an infection. Interpretation and review of laboratory results Abnormal [facility] Lymphocytes (Bld) [#/Vol] 2.45 10*3/uL [facility] Lymphocytes/100 WBC (Bld) 23.6 % [facility] MCH (RBC) [Entitic mass] 29.0 pg 26.0 - 34.[address] [facility] MCHC (RBC) [Mass/Vol] 33.4 g/dL 31.0 - 37.0 g/dL [facility] MCV (RBC) [Entitic vol] 86.6 fL 80.0 - 100.[address] [facility] Monocytes (Bld) [#/Vol] 0.62 10*3/uL [facility] Monocytes/100 WBC (Bld) 6.0 % [facility] Neutrophils (Bld) [#/Vol] 7.17 10*3/uL High [facility] Neutrophils/100 WBC (Bld) 68.9 % [facility] Nucleated RBC (Bld) [#/Vol] 0.00 10*3/uL [facility] Nucleated RBC/100 WBC (Bld) [Ratio] 0.0 % [facility] Platelet mean volume (Bld) [Entitic vol] 12.5 fL High 9.4 - 12.[address] [facility] Platelets (Bld) [#/Vol] 160 10*3/uL [facility] RBC (Bld) [#/Vol] 4.49 10*6/uL [facility] ealt WBC (Bld) [#/Vol] 10.39 10*3/uL [facility] CT ANGIOGRAM CHEST ABDOMEN P Caitlin 03-20-2023 [...] MonMar 20, 2023 10:29:33 AM EDT Normal [facility] Comment on above: Order Comment: Injur y/Trauma or Illness?:Illness/Other How long have you had these symptoms (acute/chronic)?:Acute Reason for exam?:chest and abd pain, vomiting Type of Exam?:Initial Additional signs and symptoms?: CT Angiogram Chest Abdomen P [facility] 03-20-2023 1. No acute thoracoabdominal aortic pathology. [...] surgical clips. NTP/cdr Workstation ID: [id number] [facility] [email or web address] EXAMINATION: CT ANGIOGRAM CHEST ABDOMEN PELVIS HISTORY: [...] Abdominal wall structures appear to be intact. [employer] David Kulkarni, DO - 03/20/2023 EXAMINATION: CT [...] appendectomy surgical clips. NTP/cdr Workstation ID: [id number] [facility] Radiology Study observation (narrative) [facility] CT Angiogram Chest Abdomen P elvisOrdered By: David Moura on 03-20-2023 [facility] Work Phone: ECG 12 Leadon 03-20-2023 Siddharth Gagnon MD 03/20/2023 4:45 PM ECG 12 Lead Date/Time: 03/20/2023 4:45 PM Performed by: Siddharth Gagnon MD Authorized by: Mariel Gagnon MD Interpreted by ED attending physician Comparison: not compared with previous ECG Rhythm: sinus rhythm and sinus bradycardia BPM: 56 Conduction: conduction normal ST Segments: ST segments normal T Waves: T waves normal normal SD interval QT Interval: 514 Clinical impression: non-specific ECG and sinus bradycardia [facility] EKGon 03-20-2023 [facility] EKG 12-leadon 03-20-2023 Atrial Rate [address] [facility] P [place] [address] [facility] P-R Interval [address] [facility] Q-T Interval [address] [facility] QRS Duration [address] [facility] QTC Calculation (Bezet) 496 ms [facility] R [place] 51 degrees [facility] T [place] 42 degrees [facility] Ventricular Rate 56 BPM [facility] th Sinus bradycardia wi th sinus arrhythmia Prolonged QT Abnormal ECG ECG Cart Interpretation see physician note for interpretation. Confirmed by Zita Dozier ([id number]) on 03/20/2023 1:39:[address] [facility] Atrial Rate [address] [facility] P [place] [address] [facility] P-R Interval [address] [facility] Q-T Interval [address] [facility] QRS Duration [address] [facility] QTC Calculation (Bezet) 438 ms [facility] R [place] 83 degrees [facility] T [place] [address] [facility] Ventricular Rate 73 [facility] Mariel Gagnon M D 03/21/2023 2:39 PM EKG 12-lead Date/Time: 03/20/2023 6:02 AM Performed by: Mariel Gagnon MD Authorized by: Mariel Gagnon MD Interpreted by ED attending physician Rhythm: sinus rhythm BPM: 73 QRS axis: normal Clinical impression: normal ECG MUSE [facility] Glucose (Bld) [Mass/Vol]on 0 03-20-2023 Glucose [Mass/Vol] 245 mg/dL High 65 - 99 mg/dL [facility] Interpretation and review of laboratory results Abnormal [facility] Glucose [Mass/Vol] 284 mg/dL High 65 - 99 mg/dL [facility] Interpretation and review of laboratory results Abnormal [facility] Glucose [Mass/Vol] 406 mg/dL Critically high 65 - 99 mg/d L [facility] Interpretation and review of laboratory results Abnormal [facility] Critical result acte d upon time of test. Test performed at bedside. [facility] HCG (QUALITATIVE)on 03-20-20 23 Beta HCG ( test) Ql Negative Negative [facility] HbA1c (Bld) [Mass fraction]O rdered By: Destinee Baez on 03-20-2023 Average glucose Estimated from glycated hemoglobin (Bld) [Mass/Vol] 160 mg/dL High 68 - 114 mg/dL [facility] Interpretation and review of laboratory results Abnormal [facility] Normal: 4.0% - 5.6% Increased risk for diabetes: 5.7% - 6.4% Diabetes: >= 6.5% Pediatrics: No established reference range Estimated average glucose: 68-114 mg/dL [facility] Hemoglobin [id number] By: Georgina Baez on 03-20-2023 HbA1c (Bld) [Mass fraction] 7.2 % High 4.0 - 5.6 % [facility] Hepatic function 2000 panelo n 03-20-2023 Albumin [Mass/Vol] 3.8 g/dL 3.2 - 5.2 g/dL [facility] ALP [Catalytic activity/Vol] 84 U/L 40 - 140 U/L [facility] ALT [Catalytic activity/Vol] 26 U/L 14 - 65 U/L [facility] AST [Catalytic activity/Vol] 13 U/L 0 - 45 U/L [facility] Bilirubin [Mass/Vol] 0.6 mg/dL 0.0 - 1 .3 mg/dL [facility] Bilirubin.conjugated [Mass/Vol] 0.1 mg/dL 0.0 - 0.4 mg/dL [facility] Interpretation and review of laboratory results Normal [facility] Protein [Mass/Vol] 7.2 g/dL 6.0 - 8.0 g/dL [facility] Light Blue Topon 03-20-2023 Extra Tube Hold for add-ons. [facility] Comment on above: Auto resulted. [facility] Lipaseon 03-20-2023 Lipase [Catalytic activity/Vol] 53 U/L Low 73 - 393 U/L [facility] Magnesium Levelon 03-20-2023 Magnesium [Mass/Vol] 1.8 mg/dL 1.6 - 2 .4 mg/dL [facility] Magnesium [Mass/Vol]on 03-20 Interpretation and review of laboratory results Normal [facility] No Panel Informationon 03-20 Interpretation and review of laboratory results Abnormal [facility] UrinalysisOrdered By: Alysha Ramos on 03-20-2023 Bacteria Auto Ql (U) None Seen None Seen /hpf [facility] Bilirubin Ql (U) Negative Negative [facility] Clarity Refractometry automated (U) Cloudy Abnormal Clear [facility] Color (U) Yellow Colorless, Yellow [facility] Glucose Auto test strip (U) [Mass/Vol] >=500 Abnormal Negative mg/dL [facility] Hemoglobin Auto test strip Ql (U) Negative Negative [facility] Interpretation and review of laboratory results Abnormal [facility] Ketones (U) [Mass/Vol] mg/dL Abnormal Negative mg/d L [facility] Leukocyte esterase Auto test strip Ql (U) Negative Negative [facility] h Mucus Auto (Urine sed) [#/Area] Rare None Seen, Rare /lpf [facility] Nitrite Auto test strip Ql (U) Negative Negative [facility] pH (U) 7.0 [pH] 5.0 - 7.0 [facility] Protein (U) [Mass/Vol] Negative Negative mg/d L [facility] RBC Auto (Urine sed) [#/Area] 1 [facility] Specific gravity (U) [Rel density] 1.023 1.005 - 1.025 [facility] Urobilinogen (U) [Mass/Vol] mg/dL NINF - 2.0 mg/dL [facility] WBC Auto (Urine sed) [#/Area] 3 [facility] Microscopic examination is performed on all urinalysis samples and only positive findings are reported. The test for blood on the chemical analytic portion of urinalysis may also be positive due to hemoglobinuria and myoglobinuria and if red blood cells are present they are quantified by microscopic examination. [facility] CNPNon 02-26-2023 CNPN Telephone (AKURFL) KATHLEEN VILLA ([id number]) 1995 F CHT Date Time Provider Department [...] Status:Closed by VERITO BORDEN on 02/26/[address] [facility] Basic metabolic 2000 panelon 02-04-2023 Anion gap [Moles/Vol] 8 mmol/L Normal 5-[address] [facility] Comment on above: Order Comment: Speci men Type: BLOOD SPECIMEN Ordering Facility: [facility] Address: [address] [place] [address] Performed By: #### 3 1201-7, 5195-3, 14845-4, SYPH #### [facility] CLIA [id number] [address] [place] [address] [place] Calcium [Mass/Vol] 8.3 mg/dL Low 8.5-10.5 [facility] Comment on above: Order Comment: Speci men Type: BLOOD SPECIMEN Ordering Facility: [facility] Address: [address] [place] [address] Performed By: #### 3 1201-7, 5195-3, 08611-4, SYPH #### [facility] CLIA [id number] [address] [place] [address] [place] Chloride [Moles/Vol] 106 mmol/L Normal 98-107 [facility] Comment on above: Order Comment: Speci men Type: BLOOD SPECIMEN Ordering Facility: [facility] Address: [address] [place] [place] [address] Performed By: #### 3 1201-7, 5195-3, 89055-9, SYPH #### [facility] CLIA [id number] [address] [place] [address] [place] CO2 [Moles/Vol] 27 mmol/L Normal 21-32 [facility] Comment on above: Order Comment: Speci men Type: BLOOD SPECIMEN Ordering Facility: [facility] Address: [address] [place] [place] [address] Performed By: #### 3 1201-7, 5195-3, 58550-5, SYPH #### [facility] CLIA [id number] [address] [place] [address] [place] Creatinine [Mass/Vol] 0.58 mg/dL Normal 0.51-0.[address] [facility] Comment on above: Order Comment: Speci men Type: BLOOD SPECIMEN Ordering Facility: [facility] Address: [address] [place] [place] [address] Result Comment: Cleopatra ents receiving either N-Acetylcysteine (NAC) or Metamizole prior to venipuncture, may have falsely depressed results. Performed By: #### 3 1201-7, 5195-3, 53816-4, SYPH #### [facility] CLIA [id number] [address] [place] [address] [place] ESTIMATED GLOMERULAR FILTRATION RATE 127 mL/min/1.73m??? Normal >=60 [facility] Comment on above: Order Comment: Speci men Type: BLOOD SPECIMEN Ordering Facility: [facility] Address: [address] [place] [place] [address] Result Comment: Janett mated Glomerular Filtration Rate [...] GFR. Performed By: #### 3 1201-7, 5195-3, 58077-7, SYPH #### [facility] CLIA [id number] [address] [place], [place] [id number] [place] Glucose [Mass/Vol] 271 mg/dL High 70-100 [facility] Comment on above: Order Comment: Speci men Type: BLOOD SPECIMEN Ordering Facility: [facility] Address: [address] [place] [place] [address] Result Comment: The [place] Diabetes Association (ADA) provides guidance for cutoff [...] Standards of Medical Care in Diabetes 2016, [place] [employer]. Diabetes Care. 2016.39(Suppl 1). Results may be falsely elevated after the administration of Sulfapyridine. Results may be falsely depressed after the administration of Sulfasalazine. Performed By: #### 3 1201-7, 5195-3, 36469-9, SYPH #### [facility] CLIA [id number] [address] [place] [address] [place] Potassium [Moles/Vol] 3.4 mmol/L Low 3.5-5.[address] [facility] Comment on above: Order Comment: Jon russ Type: BLOOD SPECIMEN Ordering Facility: [facility] Address: [address] [place] [place] [address] Performed By: #### 3 1201-7, 5195-3, 68308-8, SYPH #### [facility] CLIA [id number] [address] [place] [address] [place] Sodium [Moles/Vol] 141 mmol/L Normal 136-145 [facility] Comment on above: Order Comment: Jon russ Type: BLOOD SPECIMEN Ordering Facility: [facility] Address: [address] [place], [place] [address] Performed By: #### 3 1201-7, 5195-3, 66599-9, SYPH #### [facility] CLIA [id number] [address] [place] [address] [place] Urea nitrogen [Mass/Vol] 6 mg/dL Low 7-26 [facility] Comment on above: Order Comment: Speci men Type: BLOOD SPECIMEN Ordering Facility: [facility] Address: [address] [place] [place] [address] Performed By: #### 3 1201-7, 5195-3, 08013-8, SYPH #### [facility] CLIA [id number] [address] [place] [address] [place] Anion gap [Moles/Vol] 7 mmol/L Normal 5-[address] [facility] Comment on above: Order Comment: Speci men Type: BLOOD SPECIMEN Ordering Facility: [facility] Address: [address] [place] [place] [address] Performed By: #### 3 1201-7, 5195-3, 83511-4, SYPH #### [facility] CLIA [id number] [address] [place] [address] [place] Calcium [Mass/Vol] 8.0 mg/dL Low 8.5-10.5 [facility] Comment on above: Order Comment: Speci men Type: BLOOD SPECIMEN Ordering Facility: [facility] Address: [address] [place] [place] [address] Performed By: #### 3 1201-7, 5195-3, 82860-3, SYPH #### [facility] CLIA [id number] [address] [place] [address] [place] Chloride [Moles/Vol] 106 mmol/L Normal 98-107 [facility] Comment on above: Order Comment: Speci men Type: BLOOD SPECIMEN Ordering Facility: [facility] Address: [address] [place] [place] [address] Performed By: #### 3 1201-7, 5-3, 16303-9, SYPH #### [facility] CLIA [id number] [address] [place] [address] [place] CO2 [Moles/Vol] 27 mmol/L Normal 21-32 [facility] Comment on above: Order Comment: Speci men Type: BLOOD SPECIMEN Ordering Facility: [facility] Address: [address] Performed By: #### 3 1201-7, 5195-3, 35518-9, SYPH #### [facility] CLIA [id number] [address] [place] [address] [place] Creatinine [Mass/Vol] 0.61 mg/dL Normal 0.51-0.[address] [facility] Comment on above: Order Comment: Jon rsus Type: BLOOD SPECIMEN Ordering Facility: [facility] Address: [address] Result Comment: Cleopatra ents receiving either N-Acetylcysteine (NAC) or Metamizole prior to venipuncture, may have falsely depressed results. Performed By: #### 3 1201-7, 5195-3, 61629-9, SYPH #### [facility] CLIA [id number] [address] [place] [address] OF [facility] ESTIMATED GLOMERULAR FILTRATION RATE 125 mL/min/1.73m??? Normal >=60 [facility] Comment on above: Order Comment: Jon russ Type: BLOOD SPECIMEN Ordering Facility: [facility] Address: [address] [place] [address] Result Comment: Janett mated Glomerular Filtration Rate [...] GFR. Performed By: #### 3 1201-7, 5195-3, 00295-2, SYPH #### [facility] CLIA [id number] [address] [place], [place] [id number] [place] Glucose [Mass/Vol] 269 mg/dL High 70-100 [facility] Comment on above: Order Comment: Jon russ Type: BLOOD SPECIMEN Ordering Facility: [facility] Address: [address] Result Comment: The [place] Diabetes Association (ADA) provides guidance for cutoff [...] Standards of Medical Care in Diabetes 2016, [place] [employer]. Diabetes Care. 2016.39(Suppl 1). Results may be falsely elevated after the administration of Sulfapyridine. Results may be falsely depressed after the administration of Sulfasalazine. Performed By: #### 3 1201-7, 5195-3, 73721-7, SYPH #### [facility] CLIA [id number] [address] [place] [address] [place] Potassium [Moles/Vol] 3.5 mmol/L Normal 3.5-5.[address] [facility] Comment on above: Order Comment: Speci men Type: BLOOD SPECIMEN Ordering Facility: [facility] Address: [address] [place] [address] Performed By: #### 3 1201-7, 5195-3, 70669-1, SYPH #### [facility] CLIA [id number] [address] [place] [address] [place] Sodium [Moles/Vol] 140 mmol/L Normal 136-145 [facility] Comment on above: Order Comment: Speci men Type: BLOOD SPECIMEN Ordering Facility: [facility] Address: [address] [place] [address] Performed By: #### 3 1201-7, 5195-3, 78676-6, SYPH #### [facility] CLIA [id number] [address] [place] [address] [place] Urea nitrogen [Mass/Vol] 6 mg/dL Low 7-26 [facility] Comment on above: Order Comment: Speci men Type: BLOOD SPECIMEN Ordering Facility: [facility] Address: [address] [place] [address] Performed By: #### 3 1201-7, 5195-3, 58749-6, SYPH #### [facility] CLIA [id number] [address] [place] [address] [place] CBC W Auto Differential pane l (Bld)on 02-04-2023 Basophils (Bld) [#/Vol] 0.04 10*3/uL Normal <0.11 [facility] Comment on above: Order Comment: Speci men Type: BLOOD SPECIMEN Ordering Facility: [facility] Address: [address] [place] [place] [address] Performed By: #### 3 1201-7, 5195-3, 72087-4, SYPH #### [facility] CLIA [id number] [address] [place] [address] [place] Basophils/100 WBC (Bld) 0.4 % Normal [facility] Comment on above: Order Comment: Speci men Type: BLOOD SPECIMEN Ordering Facility: [facility] Address: [address] [place] [place] [address] Performed By: #### 3 1201-7, 5-3, 05753-4, SYPH #### [facility] CLIA [id number] [address] [place] [address] [place] Differential cell count method Nom (Bld) Auto Normal [facility] Comment on above: Order Comment: Speci men Type: BLOOD SPECIMEN Ordering Facility: [facility] Address: [address] [place] [place] [address] Performed By: #### 3 1201-7, 5195-3, 75184-5, SYPH #### [facility] CLIA [id number] [address] [place] [address] [place] Eosinophils (Bld) [#/Vol] 0.04 10*3/uL Normal <0.46 [facility] Comment on above: Order Comment: Speci men Type: BLOOD SPECIMEN Ordering Facility: [facility] Address: [address] [place] [address], [place] [address] Performed By: #### 3 1201-7, 5195-3, 48042-1, SYPH #### [facility] CLIA [id number] [address] [place] [address] [place] Eosinophils/100 WBC (Bld) 0.4 % Normal [facility] Comment on above: Order Comment: Speci men Type: BLOOD SPECIMEN Ordering Facility: [facility] Address: [address] [place] [address] Performed By: #### 3 1201-7, 5195-3, 28948-1, SYPH #### [facility] CLIA [id number] [address] [place] [address] [place] Erythrocyte distribution width (RBC) [Ratio] 13.3 % Normal 11.5-15.0 [facility] Comment on above: Order Comment: Speci men Type: BLOOD SPECIMEN Ordering Facility: [facility] Address: [address] [place] [address] Performed By: #### 3 1201-7, 5195-3, 08982-5, SYPH #### [facility] CLIA [id number] [address] [place] [address] [place] Hematocrit (Bld) [Volume fraction] 34.5 % Low 36.0-46.0 [facility] Comment on above: Order Comment: Speci men Type: BLOOD SPECIMEN Ordering Facility: [facility] Address: [address] Performed By: #### 3 1201-7, 5195-3, 14265-8, SYPH #### [facility] CLIA [id number] [address] [place] [address] [place] Hemoglobin (Bld) [Mass/Vol] 11.6 g/dL Normal 11.5-15.5 [facility] Comment on above: Order Comment: Speci men Type: BLOOD SPECIMEN Ordering Facility: [facility] Address: [address] [place] [address] Performed By: #### 3 1201-7, 5195-3, 82080-0, SYPH #### [facility] CLIA [id number] [address] [place] [address] [place] Immature granulocytes (Bld) [#/Vol] 0.10 10*3/uL High <0.10 [facility] Comment on above: Order Comment: Speci men Type: BLOOD SPECIMEN Ordering Facility: [facility] Address: [address] [place] [place] [address] Performed By: #### 3 1201-7, 5194-3, 42472-5, SYPH #### [facility] CLIA [id number] [address] [place] [address] [place] Immature granulocytes/100 WBC (Bld) 0.9 % Normal [facility] Comment on above: Order Comment: Speci men Type: BLOOD SPECIMEN Ordering Facility: [facility] Address: [address] [place] [place] [address] Performed By: #### 3 120-7, 3, , SYPH #### [facility] CLIA [id number] [address] [place] [address] [place] Lymphocytes (Bld) [#/Vol] 2.41 10*3/uL Normal 1.00-4.00 [facility] Comment on above: Order Comment: Speci men Type: BLOOD SPECIMEN Ordering Facility: [facility] Address: [address] [place] [address] Performed By: #### 3 1201-7, 3, , SYPH #### [facility] CLIA [id number] [address] [place] [address] [place] Lymphocytes/100 WBC (Bld) 22.3 % Normal [facility] Comment on above: Order Comment: Speci men Type: BLOOD SPECIMEN Ordering Facility: [facility] Address: [address] [place] [place] [address] Performed By: #### 3 1201-7, 5194-3, 87513-0, SYPH #### [facility] CLIA [id number] [address] [place] [address] STATES OF [facility] MCH (RBC) [Entitic mass] 29.1 pg Normal 26.0-34.0 [facility] Comment on above: Order Comment: Speci men Type: BLOOD SPECIMEN Ordering Facility: [facility] Address: [address] [place] [place] [address] Performed By: #### 3 1201-7, 5195-3, 83637-0, SYPH #### [facility] CLIA [id number] [address] [place] [address] [place] MCHC (RBC) [Mass/Vol] 33.6 g/dL Normal 30.5-36.[address] [facility] Comment on above: Order Comment: Speci men Type: BLOOD SPECIMEN Ordering Facility: [facility] Address: [address] [place] [place] [address] Performed By: #### 3 1201-7, 5195-3, 64663-9, SYPH #### [facility] CLIA [id number] [address] [place] [address] [place] MCV (RBC) [Entitic vol] 86.5 fL Normal 80.0-100.0 [facility] Comment on above: Order Comment: Speci men Type: BLOOD SPECIMEN Ordering Facility: [facility] Address: [address] [place] [place] [address] Performed By: #### 3 1201-7, 5195-3, 42597-7, SYPH #### [facility] CLIA [id number] [address] [place] [address] [place] Monocytes (Bld) [#/Vol] 0.70 10*3/uL Normal <0.87 [facility] Comment on above: Order Comment: Speci men Type: BLOOD SPECIMEN Ordering Facility: [facility] Address: [address] [place] [place] [address] Performed By: #### 3 1201-7, 5195-3, 84833-9, SYPH #### [facility] CLIA [id number] [address] [place] [address] [place] Monocytes/100 WBC (Bld) 6.5 % Normal [facility] Comment on above: Order Comment: Speci men Type: BLOOD SPECIMEN Ordering Facility: [facility] Address: [address] [place] [address] Performed By: #### 3 1201-7, 5195-3, 41469-0, SYPH #### [facility] CLIA [id number] [address] [place] [address] [place] Neutrophils (Bld) [#/Vol] 7.54 10*3/uL High 1.45-7.50 [facility] Comment on above: Order Comment: Speci men Type: BLOOD SPECIMEN Ordering Facility: [facility] Address: [address] [place] [address] Performed By: #### 3 1201-7, 5195-3, 47682-5, SYPH #### [facility] CLIA [id number] [address] [place] [address] [place] Neutrophils/100 WBC (Bld) 69.5 % Normal [facility] Comment on above: Order Comment: Speci men Type: BLOOD SPECIMEN Ordering Facility: [facility] Address: [address] [place] [address] Performed By: #### 3 1201-7, 5-3, 50987-0, SYPH #### [facility] CLIA [id number] [address] [place] [address] [place] Nucleated RBC (Bld) [#/Vol] 10*3/uL Normal <0.01 [facility] Comment on above: Order Comment: Speci men Type: BLOOD SPECIMEN Ordering Facility: [facility] Address: [address] [place] [address] Performed By: #### 3 1201-7, 5-3, 23567-7, SYPH #### [facility] CLIA [id number] [address] [place] [address] [place] Nucleated RBC/100 WBC (Bld) [Ratio] 0.0 /100 WBC Normal [facility] Comment on above: Order Comment: Speci men Type: BLOOD SPECIMEN Ordering Facility: [facility] Address: [address] [place] [place] [address] Performed By: #### 3 1201-7, 5195-3, 82047-8, SYPH #### [facility] CLIA [id number] [address] [place] [address] [place] Platelet mean volume (Bld) [Entitic vol] 11.7 fL Normal 9.0-12.7 [facility] Comment on above: Order Comment: Speci men Type: BLOOD SPECIMEN Ordering Facility: [facility] Address: [address] [place] [place] [address] Performed By: #### 3 1201-7, 5195-3, 50265-7, SYPH #### [facility] CLIA [id number] [address] [place] [address] [place] Platelets (Bld) [#/Vol] 163 10*3/uL Normal 150-400 [facility] Comment on above: Order Comment: Speci men Type: BLOOD SPECIMEN Ordering Facility: [facility] Address: [address] [place] [place] [address] Performed By: #### 3 1201-7, 5195-3, 41673-4, SYPH #### [facility] CLIA [id number] [address] [place] [address] [place] RBC (Bld) [#/Vol] 3.99 10*6/uL Normal 3.90-5.20 [facility] Comment on above: Order Comment: Speci men Type: BLOOD SPECIMEN Ordering Facility: [facility] Address: [address] [place] [place] [address] Performed By: #### 3 1201-7, 5195-3, 22056-7, SYPH #### [facility] CLIA [id number] [address] [place] [address] [place] WBC (Bld) [#/Vol] 10.83 10*3/uL Normal 3.70-11.00 [facility] Comment on above: Order Comment: Speci men Type: BLOOD SPECIMEN Ordering Facility: [facility] Address: [place] [address] Performed By: #### 3 1201-7, 5195-3, 58663-1, [facility] #### [facility] CLIA [id number] [address] [place] [address] [facility] [place] CNDSon 02-04-2023 CNDS HNO ID: [id number] Author: David Burnett DO Service: Hospital Medicine [...] summary. SPECIALITY SERVICES SEEN DURING HOSPITALIZATION: hospitalist, equipment manager CHIEF COMPLAINT: DKA REASON FOR HOSPITALIZATION: DKA, gastroparesis FINAL DIAGNOSIS: DKA, gastroparesis OPERATIONS/PROCEDURES DURING HOSPITALIZATION: HOSPITAL COURSE: 27-year-old white female who presented 2 days ago on 01/31 secondary to nausea and vomiting at home. Patient has a known history of diabetic gastroparesis. She follows in [facility]. She was admitted to [place]. Unfortunately she has not been tolerating p.o. 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 Follow up with PCP in one [...] hyperglycemia, with long-term current use of insulin ([facility]); Insulin p (more content not included)... [facility] ALLIED HEALTHon 02-03-2023 ALLIED HEALTH HNO ID: [id number] Author: Chaplain Craig Service: Spiritual Care Author Type: Lease Out Worker Type: Allied Health Filed: 02/03/2023 11:39 AM Note Text: SPIRITUAL CARE PROGRESS NOTE SERVICE DATE: 02/03/2023 SERVICE TIME: 10:35 am While rounding in ICU, attempted to provided spiritual presence to patient. Patient was busy . No family was present. A stenotypist will follow up. To contact the Spiritual Care Department: Please call [phone]. SIGNATURE: Chaplain Craig PATIENT NAME: Kathleen Villa DATE: February 03, 2023 TIME: 11:37 AM PAGER/CONTACT #: [phone] [facility] Basic metabolic 2000 panelon 02-03-2023 Anion gap [Moles/Vol] 9 mmol/L Normal 5-[address] [facility] Comment on above: Order Comment: Speci men Type: BLOOD SPECIMEN Ordering Facility: [facility] Address: [place] [address] Performed By: #### 3 1201-7, 5195-3, 03007-2, SYPH #### [facility] CLIA [id number] [facility] [place] [address] [place] Calcium [Mass/Vol] 8.1 mg/dL Low 8.5-10.5 [facility] Comment on above: Order Comment: Speci men Type: BLOOD SPECIMEN Ordering Facility: [facility] Address: [address] [place] [address] Performed By: #### 3 1201-7, 5195-3, 86411-3, SYPH #### [facility] CLIA [id number] [address] [place] [address] [place] Chloride [Moles/Vol] 112 mmol/L High 98-107 [facility] Comment on above: Order Comment: Speci men Type: BLOOD SPECIMEN Ordering Facility: [facility] Address: [address] [place] [place] [address] Performed By: #### 3 1201-7, 5195-3, , SYPH #### [facility] CLIA [id number] [place] [address] [place] CO2 [Moles/Vol] 22 mmol/L Normal 21-32 [facility] Comment on above: Order Comment: Speci men Type: BLOOD SPECIMEN Ordering Facility: [facility] Address: [address] [place] [place] [address] Performed By: #### 3 1201-7, 3, , SYPH #### [facility] CLIA [id number] [address] [place] [address] [place] Creatinine [Mass/Vol] 0.57 mg/dL Normal 0.51-0.[address] [facility] Comment on above: Order Comment: Speci men Type: BLOOD SPECIMEN Ordering Facility: [facility] Address: [address] [place] [address] Result Comment: Cleopatra ents receiving either N-Acetylcysteine (NAC) or Metamizole prior to venipuncture, may have falsely depressed results. Performed By: #### 3 1201-7, 5195-3, 87947-3, SYPH #### [facility] CLIA [id number] [address] [place] [address] [place] ESTIMATED GLOMERULAR FILTRATION RATE 127 mL/min/1.73m??? Normal >=60 [facility] Comment on above: Order Comment: Jon jeb Type: BLOOD SPECIMEN Ordering Facility: [facility] Address: [address] [place] [address] Result Comment: Janett mated Glomerular Filtration Rate [...] GFR. Performed By: #### 3 1201-7, 5195-3, 86361-1, SYPH #### [facility] CLIA [id number] [address] [place], [place] [address] [place] Glucose [Mass/Vol] 135 mg/dL High 70-100 [facility] Comment on above: Order Comment: Jon russ Type: BLOOD SPECIMEN Ordering Facility: [facility] Address: [address] [place] [place] [address] Result Comment: The [place] Diabetes Association (ADA) provides guidance for cutoff [...] Standards of Medical Care in Diabetes 2016, [place] [employer]. Diabetes Care. 2016.39(Suppl 1). Results may be falsely elevated after the administration of Sulfapyridine. Results may be falsely depressed after the administration of Sulfasalazine. Performed By: #### 3 1201-7, 5195-3, 68978-5, SYPH #### [facility] CLIA [id number] [address] [place], [place] [address] [place] Potassium [Moles/Vol] 4.0 mmol/L Normal 3.5-5.[address] [facility] Comment on above: Order Comment: Speci men Type: BLOOD SPECIMEN Ordering Facility: [facility] Address: [place] [id number] Performed By: #### 3 1201-7, 5195-3, 61601-5, SYPH #### [facility] CLIA [id number] [address] [place] [address] [place] Sodium [Moles/Vol] 143 mmol/L Normal 136-145 [facility] Comment on above: Order Comment: Speci men Type: BLOOD SPECIMEN Ordering Facility: [facility] Address: [address] [place], [place] [id number] Performed By: #### 3 1201-7, 5195-3, 23220-3, SYPH #### [facility] CLIA [id number] [address] [place] [address] [place] Urea nitrogen [Mass/Vol] 8 mg/dL Normal 7-26 [facility] Comment on above: Order Comment: Speci men Type: BLOOD SPECIMEN Ordering Facility: [facility] Address: [address] [place], [place] [id number] Performed By: #### 3 1201-7, 5195-3, 53116-7, SYPH #### [facility] CLIA [id number] [address] [place] [address] [place] CASE MGT INIT ASSESon 2022 CASE MGT INIT ASSES HNO ID: [id number] Author: MICHELLE Tobar Service: Social Work Author Type: Boat Builder Type: Care Mgt Initial Assessment Filed: 02/03/2023 2:35 PM Note Text: CARE MANAGEMENT: ASSESSMENT AND DISCHARGE PLAN SERVICE DATE: February 03, 2023 SERVICE TIME: 2:31 PM PCP: Vivi Smith MD Primary Contact: Extended Emergency Contact Information Primary Emergency Contact: Christie,Rene Colfax Relation: Significant other Admission Status: Inpatient Insurance Provider: [employer] Discharge Planning requested by: Per Department Practice Potential Transition Plans Home Advance Directives Current Advance Directive: None Compliance Program Manager Attempted to Assist with AD Completion: Yes [...] Be able to go home, General wellness Chambers of Choice Explained: Chambers of Choice Given: No Reason Not Given: [...] Patient reports Rene will provide transport [place]. SIGNATURE: MICHELLE Tobar PATIENT NAME: Kathleen Villa DATE: February 03, 2023 TIME: 2:31 PM CONTACT #: [phone] [facility] CBC W Auto Differential pane l (Bld)on 06-09-2023 Basophils (Bld) [#/Vol] 0.05 10*3/uL Normal <0.11 [facility] Comment on above: Order Comment: Speci men Type: BLOOD SPECIMEN Ordering Facility: [facility] Address: [address] [place] [place] [address] Performed By: #### 3 1201-7, 5-3, 28422-6, SYPH #### [facility] CLIA [id number] [address] [place] [address] [place] Basophils/100 WBC (Bld) 0.3 % Normal [facility] Comment on above: Order Comment: Speci men Type: BLOOD SPECIMEN Ordering Facility: [facility] Address: [address] [place] [place] [address] Performed By: #### 3 1201-7, 5194-3, 03900-3, SYPH #### [facility] CLIA [id number] [address] [place] [address] [place] Differential cell count method Nom (Bld) Auto Normal [facility] Comment on above: Order Comment: Speci men Type: BLOOD SPECIMEN Ordering Facility: [facility] Address: [address] [place] [place] [address] Performed By: #### 3 1201-7, 3, , SYPH #### [facility] CLIA [id number] [address] [place] [address] [place] Eosinophils (Bld) [#/Vol] 10*3/uL Normal <0.46 [facility] Comment on above: Order Comment: Speci men Type: BLOOD SPECIMEN Ordering Facility: [facility] Address: [address] [place] [place] [address] Performed By: #### 3 1201-7, 5194-3, 50725-0, SYPH #### [facility] CLIA [id number] [address] [place] [address] [place] Eosinophils/100 WBC (Bld) 0.0 % Normal [facility] Comment on above: Order Comment: Speci men Type: BLOOD SPECIMEN Ordering Facility: [facility] Address: [address] [place] [address] Performed By: #### 3 1201-7, 5195-3, 46146-6, SYPH #### [facility] CLIA [id number] [address] [place] [address] [place] Erythrocyte distribution width (RBC) [Ratio] 13.5 % Normal 11.5-15.0 [facility] Comment on above: Order Comment: Speci men Type: BLOOD SPECIMEN Ordering Facility: [facility] Address: [address] [address] Performed By: #### 3 1201-7, 5195-3, 74345-4, SYPH #### [facility] CLIA [id number] [address] [place] [address] [place] Hematocrit (Bld) [Volume fraction] 37.7 % Normal 36.0-46.0 [facility] Comment on above: Order Comment: Speci men Type: BLOOD SPECIMEN Ordering Facility: [facility] Address: [address] [address] Performed By: #### 3 1201-7, 5195-3, 66442-6, SYPH #### [facility] CLIA [id number] [address] [place] [address] [place] Hemoglobin (Bld) [Mass/Vol] 11.8 g/dL Normal 11.5-15.5 [facility] Comment on above: Order Comment: Speci men Type: BLOOD SPECIMEN Ordering Facility: [facility] Address: [address] [address] Performed By: #### 3 1201-7, 5195-3, 10681-5, SYPH #### [facility] CLIA [id number] [address] [place] [address] [place] Immature granulocytes (Bld) [#/Vol] 0.16 10*3/uL High <0.10 [facility] Comment on above: Order Comment: Speci men Type: BLOOD SPECIMEN Ordering Facility: [facility] Address: [address] [address] Performed By: #### 3 1201-7, 5195-3, 78734-6, SYPH #### [facility] CLIA [id number] [address] [place] [address] [place] Immature granulocytes/100 WBC (Bld) 1.0 % Normal [facility] Comment on above: Order Comment: Speci men Type: BLOOD SPECIMEN Ordering Facility: [facility] Address: [address] [place] [place] [address] Performed By: #### 3 1201-7, 5-3, 89732-5, SYPH #### [facility] CLIA [id number] [address] [place] [address] [place] Lymphocytes (Bld) [#/Vol] 1.76 10*3/uL Normal 1.00-4.00 [facility] Comment on above: Order Comment: Speci men Type: BLOOD SPECIMEN Ordering Facility: [facility] Address: [address] [place] [place] [address] Performed By: #### 3 1201-7, 5194-3, 25649-5, SYPH #### [facility] CLIA [id number] [address] [place] [address] [place] Lymphocytes/100 WBC (Bld) 10.7 % Normal [facility] Comment on above: Order Comment: Speci men Type: BLOOD SPECIMEN Ordering Facility: [facility] Address: [address] [place] [place] [address] Performed By: #### 3 1201-7, 5-3, 47265-4, SYPH #### [facility] CLIA [id number] [address] [place] [address] [place] MCH (RBC) [Entitic mass] 29.7 pg Normal 26.0-34.0 [facility] Comment on above: Order Comment: Speci men Type: BLOOD SPECIMEN Ordering Facility: [facility] Address: [address] [place] [place] [address] Performed By: #### 3 1201-7, 5-3, 28585-8, SYPH #### [facility] CLIA [id number] [address] [place] [address] [place] MCHC (RBC) [Mass/Vol] 31.3 g/dL Normal 30.5-36.[address] [facility] Comment on above: Order Comment: Speci men Type: BLOOD SPECIMEN Ordering Facility: [facility] Address: [address] [place] [place] [address] Performed By: #### 3 1201-7, 5195-3, 07752-4, SYPH #### [facility] CLIA [id number] [address] [place] [address] [place] MCV (RBC) [Entitic vol] 95.0 fL Normal 80.0-100.0 [facility] Comment on above: Order Comment: Speci men Type: BLOOD SPECIMEN Ordering Facility: [facility] Address: [address] [place] [place] [address] Performed By: #### 3 1201-7, 5195-3, 43714-5, SYPH #### [facility] CLIA [id number] [address] [place] [address] [place] Monocytes (Bld) [#/Vol] 0.77 10*3/uL Normal <0.87 [facility] Comment on above: Order Comment: Speci men Type: BLOOD SPECIMEN Ordering Facility: [facility] Address: [address] [place] [place] [address] Performed By: #### 3 1201-7, 5-3, 28784-6, SYPH #### [facility] CLIA [id number] [address] [place] [address] [place] Monocytes/100 WBC (Bld) 4.7 % Normal [facility] Comment on above: Order Comment: Speci men Type: BLOOD SPECIMEN Ordering Facility: [facility] Address: [address] [place] [place] [address] Performed By: #### 3 1201-7, 5195-3, 97940-2, SYPH #### [facility] CLIA [id number] [address] [place] [address] [place] Neutrophils (Bld) [#/Vol] 13.71 10*3/uL High 1.45-7.50 [facility] Comment on above: Order Comment: Speci men Type: BLOOD SPECIMEN Ordering Facility: [facility] Address: [address] [place] [place] [address] Performed By: #### 3 1201-7, 5195-3, 28757-5, SYPH #### [facility] CLIA [id number] [address] [place] [address] [place] Neutrophils/100 WBC (Bld) 83.3 % Normal [facility] Comment on above: Order Comment: Speci men Type: BLOOD SPECIMEN Ordering Facility: [facility] Address: [address] [place] [place] [address] Performed By: #### 3 1201-7, 5195-3, 64838-7, SYPH #### [facility] CLIA [id number] [address] [place] [address] [place] Nucleated RBC (Bld) [#/Vol] 10*3/uL Normal <0.01 [facility] Comment on above: Order Comment: Speci men Type: BLOOD SPECIMEN Ordering Facility: [facility] Address: [address] [place] [place] [address] Performed By: #### 3 1201-7, 5-3, 86988-1, SYPH #### [facility] CLIA [id number] [address] [place] [address] [place] Nucleated RBC/100 WBC (Bld) [Ratio] 0.0 /100 WBC Normal [facility] Comment on above: Order Comment: Speci men Type: BLOOD SPECIMEN Ordering Facility: [facility] Address: [address] [place] [place] [address] Performed By: #### 3 1201-7, 5195-3, 71365-2, SYPH #### [facility] CLIA [id number] [address] [place] [address] [place] Platelet mean volume (Bld) [Entitic vol] 12.4 fL Normal 9.0-12.7 [facility] Comment on above: Order Comment: Speci men Type: BLOOD SPECIMEN Ordering Facility: [facility] Address: [address] [place] [place] [id number] Performed By: #### 3 1201-7, 5195-3, 41195-7, SYPH #### [facility] CLIA [id number] [address] [place] [address] [place] Platelets (Bld) [#/Vol] 144 10*3/uL Low 150-400 [facility] Comment on above: Order Comment: Speci men Type: BLOOD SPECIMEN Ordering Facility: [facility] Address: [address] [place] [id number] Performed By: #### 3 1201-7, 5195-3, 77998-1, SYPH #### [facility] CLIA [id number] [address] [place], [place] [address] [place] RBC (Bld) [#/Vol] 3.97 10*6/uL Normal 3.90-5.20 [facility] Comment on above: Order Comment: Speci men Type: BLOOD SPECIMEN Ordering Facility: [facility] Address: [address] [place] [id number] Performed By: #### 3 1201-7, 5195-3, 03870-5, SYPH #### [facility] CLIA [id number] [address] [place], [place] [address] [place] WBC (Bld) [#/Vol] 16.45 10*3/uL High 3.70-11.00 [facility] Comment on above: Order Comment: Speci men Type: BLOOD SPECIMEN Ordering Facility: [facility] Address: [address] [facility] [place] [id number] Performed By: #### 3 1201-7, 5195-3, 33342-6, SYPH #### [facility] CLIA [id number] [address] [place] [address] [facility] [place] Comprehensive metabolic 2000 panelon 02-03-2023 Albumin [Mass/Vol] 3.5 g/dL Normal 3.2-5.0 [facility] Comment on above: Order Comment: Speci men Type: BLOOD SPECIMEN Ordering Facility: [facility] Address: [address] [place] [place] [address] Performed By: #### 3 1201-7, 5-3, 49515-9, SYPH #### [facility] CLIA [id number] [address] [place] [address] [place] ALP [Catalytic activity/Vol] 82 U/L Normal 45-117 [facility] Comment on above: Order Comment: Speci men Type: BLOOD SPECIMEN Ordering Facility: [facility] Address: [address] [place] [place] [address] Performed By: #### 3 1201-7, 5194-3, , SYPH #### [facility] CLIA [id number] [address] [place] [address] [place] ALT [Catalytic activity/Vol] 19 U/L Normal 13-61 [facility] Comment on above: Order Comment: Speci men Type: BLOOD SPECIMEN Ordering Facility: [facility] Address: [address] [place] [place] [address] Result Comment: Resu lts may be falsely depressed after the administration of Sulfasalazine and/or Sulfapyridine. Performed By: #### 3 1201-7, 5-3, 38492-4, SYPH #### [facility] CLIA [id number] [address] [place] [address] [place] Anion gap [Moles/Vol] 17 mmol/L High 5-[address] [facility] Comment on above: Order Comment: Speci men Type: BLOOD SPECIMEN Ordering Facility: [facility] Address: [address] [place] [place] [address] Performed By: #### 3 1201-7, 5194-3, 60315-9, SYPH #### [facility] CLIA [id number] [address] [place] [address] [place] AST [Catalytic activity/Vol] Normal [facility] Comment on above: Order Comment: Speci men Type: BLOOD SPECIMEN Ordering Facility: [facility] Address: [address] [address] Result Comment: Unab le to assay due to interference from hemolysis. Suggest reorder as clinically indicated. Critical or Urgent Result(s) Called at: 04:33:47 on 02/03/2023 by mb. Called to and read back by: CLOVIS Results may be falsely depressed after the administration of Sulfasalazine and/or Sulfapyridine. Performed By: #### 3 1201-7, 5195-3, 20523-7, SYPH #### [facility] CLIA [id number] [address] [place] [address] [place] Bilirubin [Mass/Vol] 1.0 mg/dL Normal 0.2-1.0 [facility] Comment on above: Order Comment: Jon russ Type: BLOOD SPECIMEN Ordering Facility: [facility] Address: [address] [place] [place] [address] Performed By: #### 3 1201-7, 5195-3, 07355-5, SYPH #### [facility] CLIA [id number] [address] [place] [address] [place] Calcium [Mass/Vol] 8.5 mg/dL Normal 8.5-10.5 [facility] Comment on above: Order Comment: Jon russ Type: BLOOD SPECIMEN Ordering Facility: [facility] Address: [address] [place] [place] [address] Performed By: #### 3 1201-7, 5195-3, 91194-6, SYPH #### [facility] CLIA [id number] [address] [place] [address] [place] Chloride [Moles/Vol] 109 mmol/L High 98-107 [facility] Comment on above: Order Comment: Speci men Type: BLOOD SPECIMEN Ordering Facility: [facility] Address: [address] [place] [place] [address] Performed By: #### 3 1201-7, 5195-3, 56265-3, SYPH #### [facility] CLIA [id number] [address] [place] [address] [place] CO2 [Moles/Vol] 12 mmol/L Low 21-32 [facility] Comment on above: Order Comment: Jon russ Type: BLOOD SPECIMEN Ordering Facility: [facility] Address: [address] [place] [place] [address] Performed By: #### 3 1201-7, 5195-3, 73142-2, SYPH #### [facility] CLIA [id number] [address] [place] [address] [place] Creatinine [Mass/Vol] 0.64 mg/dL Normal 0.51-0.[address] [facility] Comment on above: Order Comment: Speci jeb Type: BLOOD SPECIMEN Ordering Facility: [facility] Address: [address] [place] [place] [address] Result Comment: Cleopatra ents receiving either N-Acetylcysteine (NAC) or Metamizole prior to venipuncture, may have falsely depressed results. Performed By: #### 3 1201-7, 5195-3, 73786-1, SYPH #### [facility] CLIA [id number] [address] [place] [address] [place] ESTIMATED GLOMERULAR FILTRATION RATE 124 mL/min/1.73m??? Normal >=60 [facility] Comment on above: Order Comment: Belindai jeb Type: BLOOD SPECIMEN Ordering Facility: [facility] Address: [address] [place] [address] Result Comment: Janett mated Glomerular Filtration Rate [...] GFR. Performed By: #### 3 1201-7, 5195-3, 95687-4, SYPH #### [facility] CLIA [id number] [address] [place], [place] [address] [place] Glucose [Mass/Vol] 252 mg/dL High 70-100 [facility] Comment on above: Order Comment: Speci men Type: BLOOD SPECIMEN Ordering Facility: [facility] Address: [address] [place], [place] [id number] Result Comment: The [place] [employer] (ADA) provides guidance for cutoff [...] Standards of Medical Care in Diabetes 2016, [place] [employer]. Diabetes Care. 2016.39(Suppl 1). Results may be falsely elevated after the administration of Sulfapyridine. Results may be falsely depressed after the administration of Sulfasalazine. Performed By: #### 3 1201-7, 5195-3, 32746-2, SYPH #### [facility] CLIA [id number] [address] [place] [address] [place] Potassium [Moles/Vol] Normal [facility] Comment on above: Order Comment: Jon russ Type: BLOOD SPECIMEN Ordering Facility: [facility] Address: [address] [place], [place] [id number] Result Comment: Unab le to assay due to interference from hemolysis. Suggest reorder as clinically indicated. Critical or Urgent Result(s) Called at: 04:33:11 on 02/03/2023 by milly. Called to and read back by: CLOVIS Performed By: #### 3 1201-7, 5195-3, 73114-3, SYPH #### [facility] CLIA [id number] [address] [place] [address] [place] Protein [Mass/Vol] 5.8 g/dL Low 6.0-8.5 [facility] Comment on above: Order Comment: Jon urss Type: BLOOD SPECIMEN Ordering Facility: [facility] Address: [address] [place], [place] [id number] Performed By: #### 3 1201-7, 5195-3, 50003-9, SYPH #### [facility] CLIA [id number] [address] [place], [place] [address] [place] Sodium [Moles/Vol] 138 mmol/L Normal 136-145 [facility] Comment on above: Order Comment: Speci men Type: BLOOD SPECIMEN Ordering Facility: [facility] Address: [address] [place], [place] [id number] Performed By: #### 3 1201-7, 5195-3, 14795-9, SYPH #### [facility] CLIA [id number] [address] [place], [place] [id number] [place] Urea nitrogen [Mass/Vol] 10 mg/dL Normal 7- [facility] Comment on above: Order Comment: Speci men Type: BLOOD SPECIMEN Ordering Facility: [facility] Address: [address] [place], [place] [id number] Performed By: #### 3 1201-7, 5195-3, 53970-8, SYPH #### [facility] CLIA [id number] [address] [place], [place] [id number] [place] Magnesium SerPl-mCncon 02-03 Magnesium [Mass/Vol] 1.8 mg/dL Normal 1.6-2.6 [facility] Comment on above: Order Comment: Speci men Type: BLOOD SPECIMEN Ordering Facility: [facility] Address: [address] [place], [place] [id number] Performed By: #### 3 1201-7, 5195-3, 03117-5, SYPH #### [facility] CLIA [id number] [address] [place], [place] [address] [place] Basic metabolic 2000 panelon 02-02-2023 Anion gap [Moles/Vol] 17 mmol/L High 5-[address] [facility] Comment on above: Order Comment: Speci men Type: BLOOD SPECIMEN Ordering Facility: [facility] Address: [address] [place], [place] [id number] Performed By: #### 3 1201-7, 5195-3, 23631-4, SYPH #### [facility] CLIA [id number] [address] [place], [place] [address] [place] Calcium [Mass/Vol] 8.0 mg/dL Low 8.5-10.5 [facility] Comment on above: Order Comment: Speci men Type: BLOOD SPECIMEN Ordering Facility: [facility] Address: [address] [place] [place] [address] Performed By: #### 3 1201-7, 5195-3, 17448-2, SYPH #### [facility] CLIA [id number] [address] [place] [address] [place] Chloride [Moles/Vol] 108 mmol/L High 98-107 [facility] Comment on above: Order Comment: Speci men Type: BLOOD SPECIMEN Ordering Facility: [facility] Address: [address] [place] [place] [address] Performed By: #### 3 1201-7, 5193, , SYPH #### [facility] CLIA [id number] [address] [place] [address] [place] CO2 [Moles/Vol] 13 mmol/L Low 21-32 [facility] Comment on above: Order Comment: Speci men Type: BLOOD SPECIMEN Ordering Facility: [facility] Address: [address] [place] [place] [address] Performed By: #### 3 1201-7, 5195-3, 76565-4, SYPH #### [facility] CLIA [id number] [address] [place], [place] [id number] [place] Creatinine [Mass/Vol] 0.69 mg/dL Normal 0.51-0.[address] [facility] Comment on above: Order Comment: Speci men Type: BLOOD SPECIMEN Ordering Facility: [facility] Address: [address] [place] [place] [address] Result Comment: Cleopatra ents receiving either N-Acetylcysteine (NAC) or Metamizole prior to venipuncture, may have falsely depressed results. Performed By: #### 3 1201-7, 5195-3, 52255-1, SYPH #### [facility] CLIA [id number] [address] [place] [address] [place] ESTIMATED GLOMERULAR FILTRATION RATE 121 mL/min/1.73m??? Normal >=60 [facility] Comment on above: Order Comment: Jon russ Type: BLOOD SPECIMEN Ordering Facility: [facility] Address: [address] [place] [place] [address] Result Comment: Janett mated Glomerular Filtration Rate [...] GFR. Performed By: #### 3 1201-7, 5195-3, 00360-9, SYPH #### [facility] CLIA [id number] [address] [place] [address] [place] Glucose [Mass/Vol] 251 mg/dL High 70-100 [facility] Comment on above: Order Comment: Jon russ Type: BLOOD SPECIMEN Ordering Facility: [facility] Address: [address] [place] [place] [address] Result Comment: The [place] Diabetes Association (ADA) provides guidance for cutoff [...] Standards of Medical Care in Diabetes 2016, [place] [employer]. Diabetes Care. 2016.39(Suppl 1). Results may be falsely elevated after the administration of Sulfapyridine. Results may be falsely depressed after the administration of Sulfasalazine. Performed By: #### 3 1201-7, 5194-3, 87758-7, SYPH #### [facility] CLIA [id number] [address] [place], [place] [id number] [place] Potassium [Moles/Vol] 4.4 mmol/L Normal 3.5-5.[address] [facility] Comment on above: Order Comment: Speci men Type: BLOOD SPECIMEN Ordering Facility: [facility] Address: [address] [place] [place] [address] Performed By: #### 3 1201-7, 5194-3, 55225-3, SYPH #### [facility] CLIA [id number] [address] [place], [place] [id number] [place] Sodium [Moles/Vol] 138 mmol/L Normal 136-145 [facility] Comment on above: Order Comment: Speci men Type: BLOOD SPECIMEN Ordering Facility: [facility] Address: [address] [place] [place] [address] Performed By: #### 3 1201-7, 3, , SYPH #### [facility] CLIA [id number] [address] [place] [address] [place] Urea nitrogen [Mass/Vol] 12 mg/dL Normal 7-26 [facility] Comment on above: Order Comment: Speci men Type: BLOOD SPECIMEN Ordering Facility: [facility] Address: [address] [place] [place] [address] Performed By: #### 3 1201-7, 3, 23581-7, SYPH #### [facility] CLIA [id number] [address] [place], [place] [address] [place] Anion gap [Moles/Vol] 15 mmol/L Normal 5-[address] [facility] Comment on above: Order Comment: Speci men Type: BLOOD SPECIMEN Ordering Facility: [facility] Address: [address] [place] [place] [address] Performed By: #### 3 1201-7, 5194-3, 47520-2, SYPH #### [facility] CLIA [id number] [address] [place], [place] [address] [place] Calcium [Mass/Vol] 8.2 mg/dL Low 8.5-10.5 [facility] Comment on above: Order Comment: Speci men Type: BLOOD SPECIMEN Ordering Facility: [facility] Address: [address] [place] [place] [address] Performed By: #### 3 1201-7, 5195-3, 21708-7, SYPH #### [facility] CLIA [id number] [address] [place] [address] [place] Chloride [Moles/Vol] 113 mmol/L High 98-107 [facility] Comment on above: Order Comment: Speci men Type: BLOOD SPECIMEN Ordering Facility: [facility] Address: [address] [place] [place] [address] Performed By: #### 3 1201-7, 5195-3, 69759-9, SYPH #### [facility] CLIA [id number] [address] [place] [address] [place] CO2 [Moles/Vol] 11 mmol/L Low 21-32 [facility] Comment on above: Order Comment: Speci men Type: BLOOD SPECIMEN Ordering Facility: [facility] Address: [address] [place] [place] [address] Performed By: #### 3 1201-7, 5195-3, 51951-7, SYPH #### [facility] CLIA [id number] [address] [place] [address] [place] [facility] Creatinine [Mass/Vol] 0.77 mg/dL Normal 0.51-0.[address] [facility] Comment on above: Order Comment: Speci men Type: BLOOD SPECIMEN Ordering Facility: [facility] Address: [address] [place] [place] [address] Result Comment: Cleopatra ents receiving either N-Acetylcysteine (NAC) or Metamizole prior to venipuncture, may have falsely depressed results. Performed By: #### 3 1201-7, 5195-3, 58620-1, SYPH #### [facility] CLIA [id number] [address] [place] [address] [place] [facility] ESTIMATED GLOMERULAR FILTRATION RATE 108 mL/min/1.73m??? Normal >=60 [facility] Comment on above: Order Comment: Jon russ Type: BLOOD SPECIMEN Ordering Facility: [facility] Address: [address] [place], [place] [id number] Result Comment: Janett mated Glomerular Filtration Rate [...] GFR. Performed By: #### 3 1201-7, 5195-3, 12278-4, SYPH #### [facility] CLIA [id number] [address] [place], [place] [address] [place] Glucose [Mass/Vol] 253 mg/dL High 70-100 [facility] Comment on above: Order Comment: Jon russ Type: BLOOD SPECIMEN Ordering Facility: [facility] Address: [address] [place], [place] [id number] Result Comment: The [place] Diabetes Association (ADA) provides guidance for cutoff [...] Standards of Medical Care in Diabetes 2016, [place] [employer]. Diabetes Care. 2016.39(Suppl 1). Results may be falsely elevated after the administration of Sulfapyridine. Results may be falsely depressed after the administration of Sulfasalazine. Performed By: #### 3 1201-7, 5195-3, 28752-1, SYPH #### [facility] CLIA [id number] [address] [place] [address] [place] Potassium [Moles/Vol] 4.6 mmol/L Normal 3.5-5.[address] [facility] Comment on above: Order Comment: Speci men Type: BLOOD SPECIMEN Ordering Facility: [facility] Address: [place] [address] Performed By: #### 3 1201-7, 5195-3, 08302-8, SYPH #### [facility] CLIA [id number] [address] [place] [address] [place] Sodium [Moles/Vol] 139 mmol/L Normal 136-145 [facility] Comment on above: Order Comment: Speci men Type: BLOOD SPECIMEN Ordering Facility: [facility] Address: [address] [place] [place] [address] Performed By: #### 3 1201-7, 5195-3, 91153-5, SYPH #### [facility] CLIA [id number] [address] [place] [address] [place] Urea nitrogen [Mass/Vol] 18 mg/dL Normal 7-26 [facility] Comment on above: Order Comment: Speci men Type: BLOOD SPECIMEN Ordering Facility: [facility] Address: [address] [place] [place] [address] Performed By: #### 3 1201-7, 5195-3, 75387-5, SYPH #### [facility] CLIA [id number] [address] [place] [address] [place] Anion gap [Moles/Vol] 19 mmol/L High 5-[address] [facility] Comment on above: Order Comment: Speci men Type: SWAB Ordering Facility: [facility] Address: [address] [place] [place] [address] Performed By: #### 3 6902-5 #### [facility] CLIA [id number] [address] [place] [address] [place] Calcium [Mass/Vol] 8.6 mg/dL Normal 8.5-10.5 [facility] Comment on above: Order Comment: Speci men Type: SWAB Ordering Facility: [facility] Address: [place] [id number] Performed By: #### 3 6902-5 #### [facility] CLIA [id number] [address] [place] [address] [place] Chloride [Moles/Vol] 108 mmol/L High 98-107 [facility] Comment on above: Order Comment: Speci men Type: SWAB Ordering Facility: [facility] Address: [address] [place] [place] [address] Performed By: #### 3 6902-5 #### [facility] CLIA [id number] [address] [place] [address] [place] CO2 [Moles/Vol] 9 mmol/L Low 21-32 [facility] Comment on above: Order Comment: Speci men Type: SWAB Ordering Facility: [facility] Address: [address] [place] [place] [address] Result Comment: Crit ical or Urgent Result(s) Called at: 10:32:16 on 02/02/2023 by [facility]. Called to and read back by: Billie SALEEM Performed By: #### 3 6902-5 #### [facility] CLIA [id number] [address] [place] [address] [place] Creatinine [Mass/Vol] 0.82 mg/dL Normal 0.51-0.[address] [facility] Comment on above: Order Comment: Speci men Type: SWAB Ordering Facility: [facility] Address: [address] [place] [place] [address] Result Comment: Cleopatra ents receiving either N-Acetylcysteine (NAC) or Metamizole prior to venipuncture, may have falsely depressed results. Performed By: #### 3 6902-5 #### [facility] CLIA [id number] [address] [place] [address] [place] ESTIMATED GLOMERULAR FILTRATION RATE 100 mL/min/1.73m??? Normal >=60 [facility] Comment on above: Order Comment: Speci men Type: SWAB Ordering Facility: [facility] Address: [address] [place] [place] [address] Result Comment: Janett mated Glomerular Filtration Rate [...] GFR. Performed By: #### 3 6902-5 #### [facility] CLIA [id number] [address] [place] [address] [place] Glucose [Mass/Vol] 336 mg/dL High 70-100 [facility] Comment on above: Order Comment: Speci men Type: SWAB Ordering Facility: [facility] Address: [address] [address] Result Comment: The [place] Diabetes Association (ADA) provides guidance for cutoff [...] Standards of Medical Care in Diabetes 2016, [place] [employer]. Diabetes Care. 2016.39(Suppl 1). Results may be falsely elevated after the administration of Sulfapyridine. Results may be falsely depressed after the administration of Sulfasalazine. Performed By: #### 3 6902-5 #### [facility] CLIA [id number] [address] [place] [address] [place] Potassium [Moles/Vol] Normal [facility] Comment on above: Order Comment: Speci jeb Type: SWAB Ordering Facility: [facility] Address: [address] [place] [address] Result Comment: Unab le to assay due to interference from hemolysis. Suggest reorder as clinically indicated. Spoke to P.Rosalba RN Performed By: #### 3 6902-5 #### [facility] CLIA [id number] [address] [place] [address] [place] Sodium [Moles/Vol] 136 mmol/L Normal 136-145 [facility] Comment on above: Order Comment: Speci men Type: SWAB Ordering Facility: [facility] Address: [address] [place] [address] Performed By: #### 3 6902-5 #### [facility] CLIA [id number] [address] [place] [address] [place] Urea nitrogen [Mass/Vol] 19 mg/dL Normal 7-26 [facility] Comment on above: Order Comment: Speci men Type: SWAB Ordering Facility: [facility] Address: [address] [place] [place] [address] Performed By: #### 3 6902-5 #### [facility] CLIA [id number] [address] [place] [address] [place] Anion gap [Moles/Vol] 18 mmol/L High 5-[address] [facility] Comment on above: Order Comment: Speci men Type: SWAB Ordering Facility: [facility] Address: [address] [place] [place] [address] Performed By: #### 3 6902-5 #### [facility] CLIA [id number] [address] [place] [address] [place] Calcium [Mass/Vol] 8.6 mg/dL Normal 8.5-10.5 [facility] Comment on above: Order Comment: Speci men Type: SWAB Ordering Facility: [facility] Address: [address] [place] [address] Performed By: #### 3 6902-5 #### [facility] CLIA [id number] [address] [place] [address] [place] Chloride [Moles/Vol] 108 mmol/L High 98-107 [facility] Comment on above: Order Comment: Speci men Type: SWAB Ordering Facility: [facility] Address: [address] [place] [address] Performed By: #### 3 6902-5 #### [facility] CLIA [id number] [address] [place] [address] [place] CO2 [Moles/Vol] 12 mmol/L Low 21-32 [facility] Comment on above: Order Comment: Speci men Type: SWAB Ordering Facility: [facility] Address: [address] [place] [address] Performed By: #### 3 6902-5 #### [facility] CLIA [id number] [address] [place] [address] [place] Creatinine [Mass/Vol] 0.75 mg/dL Normal 0.51-0.[address] [facility] Comment on above: Order Comment: Speci men Type: SWAB Ordering Facility: [facility] Address: [address] [place] [place] [address] Result Comment: Cleopatra ents receiving either N-Acetylcysteine (NAC) or Metamizole prior to venipuncture, may have falsely depressed results. Performed By: #### 3 6902-5 #### [facility] CLIA [id number] [address] [place] [address] [place] [facility] ESTIMATED GLOMERULAR FILTRATION RATE 111 mL/min/1.73m??? Normal >=60 [facility] Comment on above: Order Comment: Speci men Type: SWAB Ordering Facility: [facility] Address: [address] [place] [place] [address] Result Comment: Janett mated Glomerular Filtration Rate [...] GFR. Performed By: #### 3 6902-5 #### [facility] CLIA [id number] [address] [place] [address] [place] Glucose [Mass/Vol] 421 mg/dL High 70-100 [facility] Comment on above: Order Comment: Speci men Type: SWAB Ordering Facility: [facility] Address: [address] [place] [place] [address] Result Comment: The [place] Diabetes Association (ADA) provides guidance for cutoff [...] Standards of Medical Care in Diabetes 2016, [place] [employer]. Diabetes Care. 2016.39(Suppl 1). Results may be falsely elevated after the administration of Sulfapyridine. Results may be falsely depressed after the administration of Sulfasalazine. Performed By: #### 3 6902-5 #### [facility] CLIA [id number] [address] [place] [address] [place] Potassium [Moles/Vol] 4.8 mmol/L Normal 3.5-5.[address] [facility] Comment on above: Order Comment: Speci men Type: SWAB Ordering Facility: [facility] Address: [address] [place] [place] [address] Performed By: #### 3 6902-5 #### [facility] CLIA [id number] [address] [place] [address] [place] Sodium [Moles/Vol] 138 mmol/L Normal 136-145 [facility] Comment on above: Order Comment: Speci men Type: SWAB Ordering Facility: [facility] Address: [address] [place] [place] [address] Performed By: #### 3 6902-5 #### [facility] CLIA [id number] [address] [place] [address] [place] Urea nitrogen [Mass/Vol] 20 mg/dL Normal 7-26 [facility] Comment on above: Order Comment: Speci men Type: SWAB Ordering Facility: [facility] Address: [address] [address] Performed By: #### 3 6902-5 #### [facility] CLIA [id number] [address] [place] [address] [place] CBC W Auto Differential pane l (Bld)on 02-02-2023 Basophils (Bld) [#/Vol] 0.03 10*3/uL Normal <0.11 [facility] Comment on above: Order Comment: Speci men Type: BLOOD SPECIMEN Ordering Facility: [facility] Address: [address] [place] [place] [address] Performed By: #### 3 1201-7, 5195-3, 19957-5, SYPH #### [facility] CLIA [id number] [address] [place] [address] [place] Basophils/100 WBC (Bld) 0.1 % Normal [facility] Comment on above: Order Comment: Speci men Type: BLOOD SPECIMEN Ordering Facility: [facility] Address: [address] [place] [place] [address] Performed By: #### 3 1201-7, 5195-3, 28162-5, SYPH #### [facility] CLIA [id number] [address] [place] [address] [place] Differential cell count method Nom (Bld) Auto Normal [facility] Comment on above: Order Comment: Speci men Type: BLOOD SPECIMEN Ordering Facility: [facility] Address: [address] [address] Performed By: #### 3 1201-7, 5195-3, 17205-2, SYPH #### [facility] CLIA [id number] [address] [place] [address] [place] Eosinophils (Bld) [#/Vol] 10*3/uL Normal <0.46 [facility] Comment on above: Order Comment: Speci men Type: BLOOD SPECIMEN Ordering Facility: [facility] Address: [address] [place] [place] [address] Performed By: #### 3 1201-7, 5195-3, 78148-2, SYPH #### [facility] CLIA [id number] [address] [place] [address] [place] Eosinophils/100 WBC (Bld) 0.0 % Normal [facility] Comment on above: Order Comment: Speci men Type: BLOOD SPECIMEN Ordering Facility: [facility] Address: [address] [address] Performed By: #### 3 1201-7, 5-3, 45397-4, SYPH #### [facility] CLIA [id number] [address] [place] [address] [place] Erythrocyte distribution width (RBC) [Ratio] 14.0 % Normal 11.5-15.0 [facility] Comment on above: Order Comment: Speci men Type: BLOOD SPECIMEN Ordering Facility: [facility] Address: [address] [place] [place] [address] Performed By: #### 3 1201-7, 5194-3, 48896-8, SYPH #### [facility] CLIA [id number] [address] [place] [address] [place] Hematocrit (Bld) [Volume fraction] 33.8 % Low 36.0-46.0 [facility] Comment on above: Order Comment: Speci men Type: BLOOD SPECIMEN Ordering Facility: [facility] Address: [address] [place] [place] [address] Performed By: #### 3 1201-7, 5195-3, 63139-2, SYPH #### [facility] CLIA [id number] [address] [place] [address] [place] Hemoglobin (Bld) [Mass/Vol] 10.8 g/dL Low 11.5-15.5 [facility] Comment on above: Order Comment: Speci men Type: BLOOD SPECIMEN Ordering Facility: [facility] Address: [address] [place] [place] [address] Performed By: #### 3 1201-7, 5195-3, 42777-2, SYPH #### [facility] CLIA [id number] [address] [place] [address] [place] Immature granulocytes (Bld) [#/Vol] 0.19 10*3/uL High <0.10 [facility] Comment on above: Order Comment: Speci men Type: BLOOD SPECIMEN Ordering Facility: [facility] Address: [address] [place] [address] Performed By: #### 3 1201-7, 5195-3, 45338-4, SYPH #### [facility] CLIA [id number] [address] [place] [address] [place] Immature granulocytes/100 WBC (Bld) 0.9 % Normal [facility] Comment on above: Order Comment: Speci men Type: BLOOD SPECIMEN Ordering Facility: [facility] Address: [address] [place] [place] [address] Performed By: #### 3 1201-7, 5195-3, 69708-6, SYPH #### [facility] CLIA [id number] [address] [place] [address] [place] Lymphocytes (Bld) [#/Vol] 2.41 10*3/uL Normal 1.00-4.00 [facility] Comment on above: Order Comment: Speci men Type: BLOOD SPECIMEN Ordering Facility: [facility] Address: [address] [place] [place] [address] Performed By: #### 3 1201-7, 5-3, 30981-7, SYPH #### [facility] CLIA [id number] [address] [place] [address] [place] Lymphocytes/100 WBC (Bld) 11.6 % Normal [facility] Comment on above: Order Comment: Speci men Type: BLOOD SPECIMEN Ordering Facility: [facility] Address: [address] [place] [place] [address] Performed By: #### 3 1201-7, 5195-3, 96196-9, SYPH #### [facility] CLIA [id number] [address] MCH (RBC) [Entitic mass] 29.1 pg Normal 26.0-34.0 [facility] Comment on above: Order Comment: Speci men Type: BLOOD SPECIMEN Ordering Facility: [facility] Address: [address] [place] [place] [address] Performed By: #### 3 1201-7, 5195-3, 69029-8, SYPH #### [facility] CLIA [id number] [address] [place] [address] OF [facility] MCHC (RBC) [Mass/Vol] 32.0 g/dL Normal 30.5-36.[address] [facility] Comment on above: Order Comment: Speci men Type: BLOOD SPECIMEN Ordering Facility: [facility] Address: [address] [place] [place] [address] Performed By: #### 3 1201-7, 5195-3, 07948-5, SYPH #### [facility] CLIA [id number] [address] [place] [address] OF [facility] MCV (RBC) [Entitic vol] 91.1 fL Normal 80.0-100.0 [facility] Comment on above: Order Comment: Speci men Type: BLOOD SPECIMEN Ordering Facility: [facility] Address: [address] [place] [place] [address] Performed By: #### 3 1201-7, 5195-3, 68053-1, SYPH #### [facility] CLIA [id number] [address] [place] [address] [place] Monocytes (Bld) [#/Vol] 0.93 10*3/uL High <0.87 [facility] Comment on above: Order Comment: Speci men Type: BLOOD SPECIMEN Ordering Facility: [facility] Address: [address] [place] [place] [address] Performed By: #### 3 1201-7, 5195-3, 53183-4, SYPH #### [facility] CLIA [id number] [address] [place] [address] Monocytes/100 WBC (Bld) 4.5 % Normal [facility] Comment on above: Order Comment: Speci men Type: BLOOD SPECIMEN Ordering Facility: [facility] Address: [address] [address] Performed By: #### 3 1201-7, 5195-3, 67695-6, SYPH #### [facility] CLIA [id number] [address] [place] [address] [place] Neutrophils (Bld) [#/Vol] 17.17 10*3/uL High 1.45-7.50 [facility] Comment on above: Order Comment: Speci men Type: BLOOD SPECIMEN Ordering Facility: [facility] Address: [address] [place] [place] [address] Performed By: #### 3 1201-7, 5195-3, 80678-9, SYPH #### [facility] CLIA [id number] [address] [place] [address] [place] Neutrophils/100 WBC (Bld) 82.9 % Normal [facility] Comment on above: Order Comment: Speci men Type: BLOOD SPECIMEN Ordering Facility: [facility] Address: [address] [place] [place] [address] Performed By: #### 3 1201-7, 5-3, 48955-3, SYPH #### [facility] CLIA [id number] [address] [place] [address] [place] Nucleated RBC (Bld) [#/Vol] 10*3/uL Normal <0.01 [facility] Comment on above: Order Comment: Speci men Type: BLOOD SPECIMEN Ordering Facility: [facility] Address: [address] [place] [place] [address] Performed By: #### 3 1201-7, 5195-3, 56255-8, SYPH #### [facility] CLIA [id number] [address] [place] [address] [place] Nucleated RBC/100 WBC (Bld) [Ratio] 0.0 /100 WBC Normal [facility] Comment on above: Order Comment: Speci men Type: BLOOD SPECIMEN Ordering Facility: [facility] Address: [address] Performed By: #### 3 1201-7, 5195-3, 47414-5, SYPH #### [facility] CLIA [id number] [address] [place] [address] [place] Platelet mean volume (Bld) [Entitic vol] 12.0 fL Normal 9.0-12.7 [facility] Comment on above: Order Comment: Speci men Type: BLOOD SPECIMEN Ordering Facility: [facility] Address: [address] Performed By: #### 3 1201-7, 5195-3, 86752-0, SYPH #### [facility] CLIA [id number] [address] [place] [address] [place] Platelets (Bld) [#/Vol] 164 10*3/uL Normal 150-400 [facility] Comment on above: Order Comment: Speci men Type: BLOOD SPECIMEN Ordering Facility: [facility] Address: [address] Performed By: #### 3 1201-7, 5195-3, 19150-6, SYPH #### [facility] CLIA [id number] [address] [place] [address] [place] RBC (Bld) [#/Vol] 3.71 10*6/uL Low 3.90-5.20 [facility] Comment on above: Order Comment: Speci men Type: BLOOD SPECIMEN Ordering Facility: [facility] Address: [address] [id number] Performed By: #### 3 1201-7, 5195-3, 15849-2, SYPH #### [facility] CLIA [id number] [address] [place] [address] [place] WBC (Bld) [#/Vol] 20.73 10*3/uL High 3.70-11.00 [facility] Comment on above: Order Comment: Speci men Type: BLOOD SPECIMEN Ordering Facility: [facility] Address: [address] [address] Performed By: #### 3 1201-7, 5195-3, 46628-3, SYPH #### [facility] CLIA [id number] [address] [place] [address] OF [place] Gas and Carbon monoxide pane l (BldV)on 02-02-2023 BASE DEFICIT, VENOUS -16 mmol/L Low -2-0 [facility] Comment on above: Order Comment: Speci men Type: SWAB Ordering Facility: [facility] Address: [address] [address] Performed By: #### 3 6902-5 #### [facility] CLIA [id number] [address] [place] [address] [place] Body temperature 98.6 [degF] Normal [facility] Comment on above: Order Comment: Speci men Type: SWAB Ordering Facility: [facility] Address: [address] [address] Performed By: #### 3 6902-5 #### [facility] CLIA [id number] [address] [place] [address] [place] Calcium.ionized (Bld) [Mass/Vol] 1.14 mmol/L Normal 1.08-1.30 [facility] Comment on above: Order Comment: Speci men Type: SWAB Ordering Facility: [facility] Address: [address] [address] Performed By: #### 3 6902-5 #### [facility] CLIA [id number] [address] [place] [address] [place] Carboxyhemoglobin (BldV) [Mass fraction] 1.0 % Normal 0.0-2.0 [facility] Comment on above: Order Comment: Speci men Type: SWAB Ordering Facility: [facility] Address: [address] [address] Result Comment: Carb oxyhemoglobin Reference Range for Smokers: 2.0-8.0% Performed By: #### 3 6902-5 #### [facility] CLIA [id number] [address] [place] [address] [place] CO2 (BldV) [Partial pressure] 22 mm[Hg] Low 42-55 [facility] Comment on above: Order Comment: Speci men Type: SWAB Ordering Facility: [facility] Address: [address] [address] Performed By: #### 3 6902-5 #### [facility] CLIA [id number] [address] [place] [address] [place] Glucose [Mass/Vol] 335 mg/dL High 60-105 [facility] Comment on above: Order Comment: Speci men Type: SWAB Ordering Facility: [facility] Address: [address] [place] [place] [address] Performed By: #### 3 6902-5 #### [facility] CLIA [id number] [address] [place] [address] [place] HCO3 (Bld) [Moles/Vol] 9 mmol/L Low 24-28 [facility] Comment on above: Order Comment: Speci men Type: SWAB Ordering Facility: [facility] Address: [address] [place] [place] [address] Performed By: #### 3 6902-5 #### [facility] IA [id number] [address] [place] [address] [place] Hemoglobin (Bld) [Mass/Vol] 13.1 g/dL Normal 11.5-15.5 [facility] Comment on above: Order Comment: Speci men Type: SWAB Ordering Facility: [facility] Address: [address] [address] Performed By: #### 3 6902-5 #### [facility] CLIA [id number] [address] [place] [address] [place] Lactate [Moles/Vol] 1.8 mmol/L Normal 0.5-2.2 [facility] Comment on above: Order Comment: Speci men Type: SWAB Ordering Facility: [facility] Address: [address] [place] [place] [address] Performed By: #### 3 6902-5 #### [facility] CLIA [id number] [address] [place] [address] [place] Methemoglobin (Bld) [Mass fraction] 0.3 % Normal 0.0-1.5 [facility] Comment on above: Order Comment: Speci men Type: SWAB Ordering Facility: [facility] Address: [address] [place] [place] [address] Performed By: #### 3 6902-5 #### [facility] CLIA [id number] [address] [place] [address] [place] O2 THERAPY RA=Room Air Normal [facility] Comment on above: Order Comment: Speci men Type: SWAB Ordering Facility: [facility] Address: [address] [place] [place] [address] Performed By: #### 3 6902-5 #### [facility] CLIA [id number] [address] [place] [address] [place] Oxygen (BldV) [Partial pressure] 93 mm[Hg] High 35-45 [facility] Comment on above: Order Comment: Speci men Type: SWAB Ordering Facility: [facility] Address: [address] [place] [place] [address] Performed By: #### 3 6902-5 #### [facility] CLIA [id number] [address] [place] [address] [place] Oxyhemoglobin (BldV) [Mass fraction] 94 % Normal 4-98 [facility] Comment on above: Order Comment: Speci men Type: SWAB Ordering Facility: [facility] Address: [address] [place] [place] [address] Performed By: #### 3 6902-5 #### [facility] CLIA [id number] [address] [place], [place] [address] [place] pH (BldV) 7.24 [pH] Low 7.32-7.42 [facility] Comment on above: Order Comment: Speci men Type: SWAB Ordering Facility: [facility] Address: [address] [place] [address] Performed By: #### 3 6902-5 #### [facility] CLIA [id number] [address] [place] [address] [place] Potassium [Moles/Vol] 5.3 mmol/L Normal 2.5-6.[address] [facility] Comment on above: Order Comment: Speci men Type: SWAB Ordering Facility: [facility] Address: [address] [id number] Performed By: #### 3 6902-5 #### [facility] CLIA [id number] [address] [place] [address] [place] Sodium [Moles/Vol] 131 mmol/L Low 136-144 [facility] Comment on above: Order Comment: Speci men Type: SWAB Ordering Facility: [facility] Address: [address] [id number] Performed By: #### 3 6902-5 #### [facility] CLIA [id number] [address] [place] [address] [place] HISTORY PHYSICALon HISTORY PHYSICAL HNO ID: [id number] Author: Yimi Leroy APRN.PRE PAROLE COUNSELING AIDE Service: Critical Care Author Type: Nurse Practitioner Type: HANDP Filed: 02/02/2023 9:48 AM Note Text: [facility] SERVICE DATE: February 02, 2023 SERVICE TIME: 919 Consulting Doctor: Dr Diana CHIEF COMPLAINT: DKA HPI: This is a 27-year-old white female who presented 2 days ago on 01/31 secondary to nausea and vomiting at home. Patient has a known history of diabetic gastroparesis. She follows in [facility]. She was admitted to [place]. Unfortunately she has not been tolerating p.o. [...] pump ([place] (more content not included)... Normal [facility] KETONES/ACETONE/BHBon 2022 Beta hydroxybutyrate [Moles/Vol] >6.00 High 0.02-0.27 [facility] Comment on above: Order Comment: Speci men Type: SWAB Ordering Facility: [facility] Address: [address] [place], [place] [address] [address] Result Comment: Bloo d ketone levels will vary depending on several factors (for example, food intake, alcohol intake and conditions such as ketoacidosis). Patients should be fasting 12 hours prior to collection. Patient samples with high levels of M-Protein (i.e. Gammopathy) may affect the accuracy of this assay. Performed By: #### 3 6902-5 #### [facility] CLIA [id number] [address] [place] [address] [place] Beta hydroxybutyrate [Moles/Vol] 5.70 mmol/L High 0.02-0.27 [facility] Comment on above: Order Comment: Jon [facility] Type: SWAB Ordering Facility: [facility] Address: [address] [place] [place] [address] Result Comment: Bloo d ketone levels will vary depending on several factors (for example, food intake, alcohol intake and conditions such as ketoacidosis). Patients should be fasting 12 hours prior to collection. Patient samples with high levels of M-Protein (i.e. Gammopathy) may affect the accuracy of this assay. Performed By: #### 3 6902-5 #### [facility] CLIA [id number] [address] [place] [address] [place] Magnesium SerPl-mCncon 02-02 Magnesium [Mass/Vol] 2.3 mg/dL Normal 1.6-2.6 [facility] Comment on above: Order Comment: Jon russ Type: SWAB Ordering Facility: [facility] Address: [address] [place], [place] [id number] Performed By: #### 3 6902-5 #### [facility] CLIA [id number] [address] [place] [address] [place] Procalcitonin SerPl-mCncon 0 02-02-2023 Procalcitonin [Mass/Vol] 0.33 ng/mL Normal 0.00-0.50 [facility] Comment on above: Order Comment: Jon russ Type: BLOOD SPECIMEN Ordering Facility: [facility] Address: [address] [place], [place] [id number] Result Comment: PCT Concentration Interpretation PCT <=0.1 [...] shock. Performed By: #### 3 1201-7, 5195-3, 55205-0, SYPH #### [facility] CLIA [id number] [address] [place] [address] [place] Basic metabolic 2000 panelon 02-01-2023 Anion gap [Moles/Vol] 16 mmol/L Normal 5-[address] [facility] Comment on above: Order Comment: Speci men Type: SWAB Ordering Facility: [facility] Address: [address] [place] [place] [address] Performed By: #### 3 6902-5 #### [facility] CLIA [id number] [address] [place] [address] [place] Calcium [Mass/Vol] 8.4 mg/dL Low 8.5-10.5 [facility] Comment on above: Order Comment: Speci men Type: SWAB Ordering Facility: [facility] Address: [address] [place] [place] [address] Performed By: #### 3 6902-5 #### [facility] CLIA [id number] [address] [place] [address] [place] Chloride [Moles/Vol] 108 mmol/L High 98-107 [facility] Comment on above: Order Comment: Speci men Type: SWAB Ordering Facility: [facility] Address: [address] [place] [place] [address] Performed By: #### 3 6902-5 #### [facility] CLIA [id number] [address] [place] [address] [place] CO2 [Moles/Vol] 15 mmol/L Low 21-32 [facility] Comment on above: Order Comment: Speci men Type: SWAB Ordering Facility: [facility] Address: [address] [id number] Performed By: #### 3 6902-5 #### [facility] CLIA [id number] [address] [place] [address] [place] Creatinine [Mass/Vol] 0.89 mg/dL Normal 0.51-0.[address] [facility] Comment on above: Order Comment: Speci men Type: SWAB Ordering Facility: [facility] Address: [address] [address] Result Comment: Cleopatra ents receiving either N-Acetylcysteine (NAC) or Metamizole prior to venipuncture, may have falsely depressed results. Performed By: #### 3 6902-5 #### [facility] CLIA [id number] [address] [place] [address] [place] ESTIMATED GLOMERULAR FILTRATION RATE 91 mL/min/1.73m??? Normal >=60 [facility] Comment on above: Order Comment: Speci men Type: SWAB Ordering Facility: [facility] Address: [address] [place] [place] [address] Result Comment: Janett mated Glomerular Filtration Rate [...] GFR. Performed By: #### 3 6902-5 #### [facility] CLIA [id number] [address] [place] [address] [place] Glucose [Mass/Vol] 351 mg/dL High 70-100 [facility] Comment on above: Order Comment: Speci jeb Type: SWAB Ordering Facility: [facility] Address: [address] [address] Result Comment: The [place] [employer] (ADA) provides guidance for cutoff [...] Standards of Medical Care in Diabetes 2016, [place] [employer]. Diabetes Care. 2016.39(Suppl 1). Results may be falsely elevated after the administration of Sulfapyridine. Results may be falsely depressed after the administration of Sulfasalazine. Performed By: #### 3 6902-5 #### [facility] CLIA [id number] [address] [place] [address] [place] Potassium [Moles/Vol] 4.0 mmol/L Normal 3.5-5.[address] [facility] Comment on above: Order Comment: Speci men Type: SWAB Ordering Facility: [facility] Address: [address] [place] [place] [address] Performed By: #### 3 6902-5 #### [facility] CLIA [id number] [address] [place] [address] [place] Sodium [Moles/Vol] 139 mmol/L Normal 136-145 [facility] Comment on above: Order Comment: Speci men Type: SWAB Ordering Facility: [facility] Address: [address] [place] [place] [address] Performed By: #### 3 6902-5 #### [facility] CLIA [id number] [address] [place] [address] [place] Urea nitrogen [Mass/Vol] 19 mg/dL Normal 7-26 [facility] Comment on above: Order Comment: Speci men Type: SWAB Ordering Facility: [facility] Address: [address] [place] [place] [address] Performed By: #### 3 6902-5 #### [facility] CLIA [id number] [address] [place] [address] [place] CBC panel Auto (Bld)on 02-01 Erythrocyte distribution width (RBC) [Ratio] 13.3 % Normal 11.5-15.0 [facility] Comment on above: Order Comment: Speci men Type: BLOOD SPECIMENOrdering Facility: [facility] Address: [address] [place] [place] [address] Performed By: #### L [id number] #### [facility] CLIA [id number] [address] [place] [address] OF [place] Hematocrit (Bld) [Volume fraction] 38.4 % Normal 36.0-46.0 [facility] Comment on above: Order Comment: Speci men Type: BLOOD SPECIMENOrdering Facility: [facility] Address: [address] [place] [place] [address] Performed By: #### L [id number] #### [facility] CLIA [id number] [address] [place] [address] [place] Hemoglobin (Bld) [Mass/Vol] 12.6 g/dL Normal 11.5-15.5 [facility] Comment on above: Order Comment: Speci men Type: BLOOD SPECIMENOrdering Facility: [facility] Address: [address] [place] [place] [address] Performed By: #### L [id number] #### [facility] CLIA [id number] [address] [place] [address] [place] MCH (RBC) [Entitic mass] 29.2 pg Normal 26.0-34.0 [facility] Comment on above: Order Comment: Speci men Type: BLOOD SPECIMENOrdering Facility: [facility] Address: [address] [place] [place] [address] Performed By: #### L [id number] #### [facility] CLIA [id number] [address] [place] [address] [place] MCHC (RBC) [Mass/Vol] 32.8 g/dL Normal 30.5-36.[address] [facility] Comment on above: Order Comment: Speci men Type: BLOOD SPECIMENOrdering Facility: [facility] Address: [address] Performed By: #### L [id number] #### [facility] CLIA [id number] [address] [place] [address] [place] MCV (RBC) [Entitic vol] 88.9 fL Normal 80.0-100.0 [facility] Comment on above: Order Comment: Speci men Type: BLOOD SPECIMENOrdering Facility: [facility] Address: [address] [address] Performed By: #### L [id number] #### [facility] CLIA [id number] [address] [place] [address] [place] Nucleated RBC (Bld) [#/Vol] 10*3/uL Normal <0.01 [facility] Comment on above: Order Comment: Speci men Type: BLOOD SPECIMENOrdering Facility: [facility] Address: [address] [address] Performed By: #### L [id number] #### [facility] CLIA [id number] [address] [place] [address] [place] Platelet mean volume (Bld) [Entitic vol] 13.5 fL High 9.0-12.7 [facility] Comment on above: Order Comment: Speci men Type: BLOOD SPECIMENOrdering Facility: [facility] Address: [address] [address] Performed By: #### L [id number] #### [facility] CLIA [id number] [address] [place] [address] [place] Platelets (Bld) [#/Vol] 139 10*3/uL Low 150-400 [facility] Comment on above: Order Comment: Speci men Type: BLOOD SPECIMENOrdering Facility: [facility] Address: [address] [address] Result Comment: No c lot detected. Performed By: #### L [id number] #### [facility] CLIA [id number] [address] [place] [address] [facility] [place] RBC (Bld) [#/Vol] 4.32 10*6/uL Normal 3.90-5.20 [facility] Comment on above: Order Comment: Speci men Type: BLOOD SPECIMENOrdering Facility: [facility] Address: [address] [phone] Performed By: #### L [id number] #### [facility] CLIA [id number] [address] [place] [address] [place] WBC (Bld) [#/Vol] 16.97 10*3/uL High 3.70-11.00 [facility] Comment on above: Order Comment: Speci men Type: BLOOD SPECIMENOrdering Facility: [facility] Address: [address] [phone] Performed By: #### L [id number] #### [facility] CLIA [id number] [address] [place] [address] OF [facility] CNPDanitza 02-01-2023 CNPN Telephone (FAMPOR) KATHLEEN VILLA ([id number]) 1995 F T Date Time Provider Department [...] (BAQSIMI) 3 mg/actuation nasal spray Use 1 Richey in the nose as needed for low [...] irregularity [N92.6] (more content not included)... Normal [facility] Comprehensive metabolic 2000 panelon 02-01-2023 Albumin [Mass/Vol] 3.8 g/dL Normal 3.2-5.0 [facility] Comment on above: Order Comment: Speci men Type: BLOOD SPECIMENOrdering Facility: [facility] Address: [address] [place] [place] [address] Performed By: #### L [id number] #### [facility] CLIA [id number] [address] [place] [address] [place] ALP [Catalytic activity/Vol] 84 U/L Normal 45-117 [facility] Comment on above: Order Comment: Speci men Type: BLOOD SPECIMENOrdering Facility: [facility] Address: [address] [address] Performed By: #### L [id number] #### [facility] CLIA [id number] [address] [place] [address] [place] ALT [Catalytic activity/Vol] 19 U/L Normal 13-61 [facility] Comment on above: Order Comment: Speci men Type: BLOOD SPECIMENOrdering Facility: [facility] Address: [address] [place] [place] [address] Result Comment: Resu lts may be falsely depressed after the administration of Sulfasalazine and/or Sulfapyridine. Performed By: #### L [id number] #### [facility] CLIA [id number] [address] [place] [address] [place] Anion gap [Moles/Vol] 16 mmol/L Normal 5-[address] [facility] Comment on above: Order Comment: Speci men Type: BLOOD SPECIMENOrdering Facility: [facility] Address: [address] [place] [place] [address] Performed By: #### L [id number] #### [facility] CLIA [id number] [address] [place] [address] [place] AST [Catalytic activity/Vol] 15 U/L Normal 8-34 [facility] Comment on above: Order Comment: Speci men Type: BLOOD SPECIMENOrdering Facility: [facility] Address: [address] [place] [place] [address] Result Comment: Resu lts may be falsely depressed after the administration of Sulfasalazine and/or Sulfapyridine. Performed By: #### L [id number] #### [facility] CLIA [id number] [address] [place] [address] [place] Bilirubin [Mass/Vol] 0.7 mg/dL Normal 0.2-1.0 [facility] Comment on above: Order Comment: Speci men Type: BLOOD SPECIMENOrdering Facility: [facility] Address: [address] [place] [place] [address] Performed By: #### L [id number] #### [facility] CLIA [id number] [address] [place] [address] [place] Calcium [Mass/Vol] 8.7 mg/dL Normal 8.5-10.5 [facility] Comment on above: Order Comment: Speci men Type: BLOOD SPECIMENOrdering Facility: [facility] Address: [address] [address] Performed By: #### L [id number] #### [facility] CLIA [id number] [address] [place] [address] [place] Chloride [Moles/Vol] 110 mmol/L High 98-107 [facility] Comment on above: Order Comment: Speci men Type: BLOOD SPECIMENOrdering Facility: [facility] Address: [address] [place] [place] [address] Performed By: #### L [id number] #### [facility] CLIA [id number] [address] [place] [address] [place] CO2 [Moles/Vol] 15 mmol/L Low 21-32 [facility] Comment on above: Order Comment: Speci men Type: BLOOD SPECIMENOrdering Facility: [facility] Address: [address] [place] [place] [address] Performed By: #### L [id number] #### [facility] CLIA [id number] [address] [place] [address] [place] Creatinine [Mass/Vol] 0.66 mg/dL Normal 0.51-0.[address] [facility] Comment on above: Order Comment: Speci men Type: BLOOD SPECIMENOrdering Facility: [facility] Address: [address] [place] [place] [address] Result Comment: Cleopatra ents receiving either N-Acetylcysteine (NAC) or Metamizole prior to venipuncture, may have falsely depressed results. Performed By: #### L [id number] #### [facility] CLIA [id number] [address] [place] [address] [place] ESTIMATED GLOMERULAR FILTRATION RATE 123 mL/min/1.73m??? Normal >=60 [facility] Comment on above: Order Comment: Speci men Type: BLOOD SPECIMENOrdering Facility: [facility] Address: [address] [place] [place] [address] Result Comment: Janett mated Glomerular Filtration Rate [...] reflect actual GFR. Performed By: #### L [id number] #### [facility] CLIA [id number] [address] [place] [address] [place] Glucose [Mass/Vol] 311 mg/dL High 70-100 [facility] Comment on above: Order Comment: Jon russ Type: BLOOD SPECIMENOrdering Facility: [facility] Address: [address] [place], [place] [phone] Result Comment: The [place] Diabetes Association (ADA) provides guidance for cutoff [...] Standards of Medical Care in Diabetes 2016, [place] [employer]. Diabetes Care. 2016.39(Suppl 1). Results may be falsely elevated after the administration of Sulfapyridine. Results may be falsely depressed after the administration of Sulfasalazine. Performed By: #### L [id number] #### [facility] CLIA [id number] [address] [place] [address] [place] Potassium [Moles/Vol] 4.4 mmol/L Normal 3.5-5.[address] [facility] Comment on above: Order Comment: Jon russ Type: BLOOD SPECIMENOrdering Facility: [facility] Address: [address] [phone] Performed By: #### L [id number] #### [facility] CLIA [id number] [address] [place] [address] [place] Protein [Mass/Vol] 6.5 g/dL Normal 6.0-8.5 [facility] Comment on above: Order Comment: Jon russ Type: BLOOD SPECIMENOrdering Facility: [facility] Address: [address] [place] [place] [address] Performed By: #### L [id number] #### [facility] CLIA [id number] [address] [place] [address] [place] Sodium [Moles/Vol] 141 mmol/L Normal 136-145 [facility] Comment on above: Order Comment: Belindai men Type: BLOOD SPECIMENOrdering Facility: [facility] Address: [address] [place] [place] [address] Performed By: #### L [id number] #### [facility] CLIA [id number] [address] [place] [address] [place] Urea nitrogen [Mass/Vol] 15 mg/dL Normal 7-26 [facility] Comment on above: Order Comment: Belindai men Type: BLOOD SPECIMENOrdering Facility: [facility] Address: [address] [place] [place] [address] Performed By: #### L [id number] #### [facility] CLIA [id number] [address] [place] [address] OF [place] ED PROV NOTEon 02-01-2023 ED PROV NOTE HNO ID: [id number] Author: Adryan Alexis PA-C Service: ? Author Type: Physician Systems Librarian Type: ED Provider Notes Filed: 01/31/2023 11:39 [...] SEPSIS LACT (more content not included)... Normal [facility] HISTORY PHYSICALon HISTORY PHYSICAL HNO ID: [id number] Author: Camilo Centeno DO Service: Hospital Medicine Author Type: Physician Type: HANDP Filed: 02/01/2023 8:08 AM Note Text: HISTORY AND PHYSICAL SERVICE DATE: 01/31/2023 SERVICE TIME: 11:46 PM PRIMARY CARE PHYSICIAN: Vivi Smith MD Subjective CHIEF COMPLAINT: Abdominal pain, nausea, and vomiting HPI: Patient is a 27-year-old female who presented to the [facility] emergency department earlier this evening [...] (BAQSIMI) 3 mg/actuation nasal spray Use 1 Richey in the nose as needed for low [...] or rhonchi (more content not included)... Normal [facility] Magnesium SerPl-mCncon 02-01 Magnesium [Mass/Vol] 1.7 mg/dL Normal 1.6-2.6 [facility] Comment on above: Order Comment: Speci men Type: BLOOD SPECIMENOrdering Facility: [facility] Address: [address] [place] [address] [place] [address] Performed By: #### L [id number] #### [facility] CLIA [id number] [address] [place] [address] [facility] NURSING PROGon 02-01-2023 NURSING PROG HNO ID: [id number] Author: Avani Seo RN Service: Nursing Author [...] error. It must be returned to the road crossing guard. It is now disconnected and she will now take sliding scale insulin for coverage. Normal [facility] Urinalysis complete panel (U )on 02-01-2023 Bacteria LM.HPF (Urine sed) [#/Area] Rare Abnormal None Seen [facility] Comment on above: Order Comment: Speci men Type: URINE SPECIMENOrdering Facility: [facility] Address: [address] [place] [place] [address] Performed By: #### L [id number] #### [facility] CLIA [id number] [address] [place] [address] [place] Bilirubin Ql (U) Negative Normal Negative [facility] Comment on above: Order Comment: Speci men Type: URINE SPECIMENOrdering Facility: [facility] Address: [address] [address] Performed By: #### L [id number] #### [facility] CLIA [id number] [address] [place] [address] Clarity (Unsp spec) Clear Normal Clear [facility] Comment on above: Order Comment: Speci men Type: URINE SPECIMENOrdering Facility: [facility] Address: [address] [place] [place] [address] Performed By: #### L [id number] #### [facility] CLIA [id number] [address] [place] [address] [place] Color (U) Yellow Normal Yellow [facility] Comment on above: Order Comment: Speci men Type: URINE SPECIMENOrdering Facility: [facility] Address: [address] [place] [place] [address] Performed By: #### L [id number] #### [facility] CLIA [id number] [address] [place] [address] [place] Epithelial cells LM.HPF (Urine sed) [#/Area] Few Normal [facility] Comment on above: Order Comment: Speci men Type: URINE SPECIMENOrdering Facility: [facility] Address: [address] [place] [place] [address] Performed By: #### L [id number] #### [facility] CLIA [id number] [address] [place] [address] [place] Glucose Test strip (U) [Mass/Vol] 3+ Abnormal Negative [facility] Comment on above: Order Comment: Speci men Type: URINE SPECIMENOrdering Facility: [facility] Address: [address] [place] [place] [address] Performed By: #### L [id number] #### [facility] CLIA [id number] [address] [place] [address] [place] Hemoglobin Ql (U) 2+ Abnormal Negative [facility] Comment on above: Order Comment: Speci men Type: URINE SPECIMENOrdering Facility: [facility] Address: [address] [place] [place] [address] Performed By: #### L [id number] #### [facility] CLIA [id number] [address] [place] [address] [place] Ketones Ql (U) 2+ Abnormal Negative [facility] Comment on above: Order Comment: Speci men Type: URINE SPECIMENOrdering Facility: [facility] Address: [address] [place] [place] [address] Performed By: #### L [id number] #### [facility] CLIA [id number] [address] [place] [address] [place] Leukocyte esterase Test strip Ql (U) Negative Normal Negative [facility] Comment on above: Order Comment: Speci men Type: URINE SPECIMENOrdering Facility: [facility] Address: [address] [place] [place] [address] Performed By: #### L [id number] #### [facility] CLIA [id number] [address] [place] [address] [place] Nitrite Ql (U) Negative Normal Negative [facility] Comment on above: Order Comment: Speci men Type: URINE SPECIMENOrdering Facility: [facility] Address: [address] [place] [place] [address] Performed By: #### L [id number] #### [facility] CLIA [id number] [address] [place] [address] [place] pH (U) 7.0 [pH] Normal 5.0-8.0 [facility] Comment on above: Order Comment: Speci men Type: URINE SPECIMENOrdering Facility: [facility] Address: [address] [place] [place] [address] Performed By: #### L [id number] #### [facility] CLIA [id number] [address] [place] [address] [place] Protein (U) [Mass/Vol] 1+ Abnormal Negative [facility] Comment on above: Order Comment: Speci men Type: URINE SPECIMENOrdering Facility: [facility] Address: [address] [place] [place] [address] Performed By: #### L [id number] #### [facility] CLIA [id number] [address] [place] [address] RBC LM.HPF (Urine sed) [#/Area] 3-5 /HPF Abnormal 0-3 /HPF [facility] Comment on above: Order Comment: Speci men Type: URINE SPECIMENOrdering Facility: [facility] Address: [address] [place] [place] [address] Performed By: #### L [id number] #### [facility] CLIA [id number] [address] [place] [address] Specific gravity (U) [Rel density] 1.021 Normal 1.005-1.030 [facility] Comment on above: Order Comment: Speci men Type: URINE SPECIMENOrdering Facility: [facility] Address: [address] [place] [place] [address] Performed By: #### L [id number] #### [facility] CLIA [id number] [address] [place] [address] Urobilinogen Ql (U) Negative Normal Negative [facility] Comment on above: Order Comment: Speci men Type: URINE SPECIMENOrdering Facility: [facility] Address: [address] [place] [place] [address] Performed By: #### L [id number] #### [facility] CLIA [id number] [address] [place] [address] [place] WBC LM.HPF (Urine sed) [#/Area] 0-5 /HPF Normal 0-5 /HPF [facility] Comment on above: Order Comment: Speci men Type: URINE SPECIMENOrdering Facility: [facility] Address: [address] [address] Performed By: #### L [id number] #### [facility] CLIA [id number] [address] [place] [address] [place] Basic metabolic 2000 panelon 01-31-2023 Anion gap [Moles/Vol] 16 mmol/L Normal 5-[address] [facility] Comment on above: Order Comment: Speci men Type: BLOOD SPECIMENOrdering Facility: [facility] Address: [address] [place] [place] [address] Performed By: #### 2 4325-3, 74104-0, HCG ####[facility]ORYCLIA [id number] [place] [address] [place] Calcium [Mass/Vol] 9.9 mg/dL Normal 8.5-10.5 [facility] Comment on above: Order Comment: Speci men Type: BLOOD SPECIMENOrdering Facility: [facility] Address: [address] [place] [place] [address] Performed By: #### 2 4325-3, 19238-6, HCG ####[facility]ORYCLIA [id number] [place] [address] [place] Chloride [Moles/Vol] 110 mmol/L High 98-107 [facility] Comment on above: Order Comment: Speci men Type: BLOOD SPECIMENOrdering Facility: [facility] Address: [address] [address] Performed By: #### 2 4325-3, 85797-6, HCG ####[facility]ORYCLIA [id number] [place] [address] [place] CO2 [Moles/Vol] 15 mmol/L Low 21-32 [facility] Comment on above: Order Comment: Speci men Type: BLOOD SPECIMENOrdering Facility: [facility] Address: [address] [place] [address] Performed By: #### 2 4325-3, 41432-9, HCG ####[facility]ATORYCLIA [id number] [address] [place] [id number] [place] Creatinine [Mass/Vol] 0.65 mg/dL Normal 0.51-0.[address] [facility] Comment on above: Order Comment: Speci men Type: BLOOD SPECIMENOrdering Facility: [facility] Address: [address] [address] Result Comment: Cleopatra ents receiving either N-Acetylcysteine (NAC) or Metamizole prior to venipuncture, may have falsely depressed results. Performed By: #### 2 4325-3, 55412-4, HCG ####[facility]ATORYCLIA [id number] [address] OF [facility] ESTIMATED GLOMERULAR FILTRATION RATE 123 mL/min/1.73m??? Normal >=60 [facility] Comment on above: Order Comment: Speci men Type: BLOOD SPECIMENOrdering Facility: [facility] Address: [address] [address] Result Comment: Janett mated Glomerular Filtration Rate [...] actual GFR. Performed By: #### 2 4325-3, 68332-1, HCG ####[facility]ORATORYCLIA [id number] [place] [address] [place] Glucose [Mass/Vol] 248 mg/dL High 70-100 [facility] Comment on above: Order Comment: Speci men Type: BLOOD SPECIMENOrdering Facility: [facility] Address: [address] [address] Result Comment: The [place] Diabetes Association (ADA) provides guidance for cutoff [...] Standards of Medical Care in Diabetes 2016, [place] [employer]. Diabetes Care. 2016.39(Suppl 1). Results may be falsely elevated after the administration of Sulfapyridine. Results may be falsely depressed after the administration of Sulfasalazine. Performed By: #### 2 4325-3, 32145-3, HCG ####[facility]ORATORYCLIA [id number] [place] [address] [place] Potassium [Moles/Vol] 3.8 mmol/L Normal 3.5-5.[address] [facility] Comment on above: Order Comment: Speci men Type: BLOOD SPECIMENOrdering Facility: [facility] Address: [address] [address] Performed By: #### 2 4325-3, 73224-4, HCG ####[facility] LABORATORYCLIA [id number] [place] [address] [place] Sodium [Moles/Vol] 141 mmol/L Normal 136-145 [facility] Comment on above: Order Comment: Speci men Type: BLOOD SPECIMENOrdering Facility: [facility] Address: [address] [address] Performed By: #### 2 5-3, 28528-5, HCG ####[facility] LABORATORYCLIA [id number] [place] [address] [place] Urea nitrogen [Mass/Vol] 17 mg/dL Normal 7-26 [facility] Comment on above: Order Comment: Speci men Type: BLOOD SPECIMENOrdering Facility: [facility] Address: [address] [address] Performed By: #### 2 4325-3, 38443-2, HCG ####[facility]ORATORYCLIA [id number] [place] [address] [place] CBC W Auto Differential pane l (Bld)on 01-31-2023 Basophils (Bld) [#/Vol] 0.07 10*3/uL Normal <0.11 [facility] Comment on above: Order Comment: Speci men Type: BLOOD SPECIMENOrdering Facility: [facility] Address: [address] [place] [place] [address] Performed By: #### 5 7021-8 ####[facility] LABORATORYCLIA [id number] [place] [address] [place] Basophils/100 WBC (Bld) 0.5 % Normal [facility] Comment on above: Order Comment: Speci men Type: BLOOD SPECIMENOrdering Facility: [facility] Address: [address] [place] [place] [address] Performed By: #### 5 7021-8 ####[facility] LABORATORYCLIA [id number] [address] [place] Differential cell count method Nom (Bld) Auto Normal [facility] Comment on above: Order Comment: Speci men Type: BLOOD SPECIMENOrdering Facility: [facility] Address: [address] [place] [place] [address] Performed By: #### 5 7021-8 ####[facility] LABORATORYCLIA [id number] [place] [address] [place] Eosinophils (Bld) [#/Vol] 10*3/uL Normal <0.46 [facility] Comment on above: Order Comment: Speci men Type: BLOOD SPECIMENOrdering Facility: [facility] Address: [address] [place] [place] [address] Performed By: #### 5 7021-8 ####[facility] LABORATORYCLIA [id number] [address] [place] Eosinophils/100 WBC (Bld) 0.1 % Normal [facility] Comment on above: Order Comment: Speci men Type: BLOOD SPECIMENOrdering Facility: [facility] Address: [address] [address] Performed By: #### 5 7021-8 ####[facility] LABORATORYCLIA [id number] [address] [place] Erythrocyte distribution width (RBC) [Ratio] 12.9 % Normal 11.5-15.0 [facility] Comment on above: Order Comment: Speci men Type: BLOOD SPECIMENOrdering Facility: [facility] Address: [address] [address] Performed By: #### 5 7021-8 ####[facility] LABORATORYCLIA [id number] [address] [place] Hematocrit (Bld) [Volume fraction] 43.2 % Normal 36.0-46.0 [facility] Comment on above: Order Comment: Speci men Type: BLOOD SPECIMENOrdering Facility: [facility] Address: [address] [address] Performed By: #### 5 7021-8 ####[facility] LABORATORYCLIA [id number] [place] [address] [place] Hemoglobin (Bld) [Mass/Vol] 14.8 g/dL Normal 11.5-15.5 [facility] Comment on above: Order Comment: Speci men Type: BLOOD SPECIMENOrdering Facility: [facility] Address: [address] [address] Performed By: #### 5 7021-8 ####[facility] LABORATORYCLIA [id number] [place] [address] [place] Immature granulocytes (Bld) [#/Vol] 0.12 10*3/uL High <0.10 [facility] Comment on above: Order Comment: Speci men Type: BLOOD SPECIMENOrdering Facility: [facility] Address: [address] [address] Performed By: #### 5 7021-8 ####[facility] LABORATORYCLIA [id number] [place] [address] [place] Immature granulocytes/100 WBC (Bld) 0.8 % Normal [facility] Comment on above: Order Comment: Speci men Type: BLOOD SPECIMENOrdering Facility: [facility] Address: [address] [address] Performed By: #### 5 7021-8 ####[facility] LABORATORYCLIA [id number] [place] [address] [place] Lymphocytes (Bld) [#/Vol] 2.36 10*3/uL Normal 1.00-4.00 [facility] Comment on above: Order Comment: Speci men Type: BLOOD SPECIMENOrdering Facility: [facility] Address: [address] [address] Performed By: #### 5 7021-8 ####[facility] LABORATORYCLIA [id number] [address] [place] Lymphocytes/100 WBC (Bld) 15.3 % Normal [facility] Comment on above: Order Comment: Speci men Type: BLOOD SPECIMENOrdering Facility: [facility] Address: [address] [address] Performed By: #### 5 7021-8 ####[facility] LABORATORYCLIA [id number] [place] [address] [place] MCH (RBC) [Entitic mass] 29.1 pg Normal 26.0-34.0 [facility] Comment on above: Order Comment: Speci men Type: BLOOD SPECIMENOrdering Facility: [facility] Address: [address] Performed By: #### 5 7021-8 ####[facility] LABORATORYCLIA [id number] [address] [place] MCHC (RBC) [Mass/Vol] 34.3 g/dL Normal 30.5-36.[address] [facility] Comment on above: Order Comment: Speci men Type: BLOOD SPECIMENOrdering Facility: [facility] Address: [address] Performed By: #### 5 7021-8 ####[facility] LABORATORYCLIA [id number] [place] [address] [place] MCV (RBC) [Entitic vol] 84.9 fL Normal 80.0-100.0 [facility] Comment on above: Order Comment: Speci men Type: BLOOD SPECIMENOrdering Facility: [facility] Address: [address] [place] [place] [address] Performed By: #### 5 7021-8 ####[facility] LABORATORYCLIA [id number] [place] [address] [place] Monocytes (Bld) [#/Vol] 0.73 10*3/uL Normal <0.87 [facility] Comment on above: Order Comment: Speci men Type: BLOOD SPECIMENOrdering Facility: [facility] Address: [address] [place] [place] [address] Performed By: #### 5 7021-8 ####[facility] LABORATORYCLIA [id number] [address] Monocytes/100 WBC (Bld) 4.7 % Normal [facility] Comment on above: Order Comment: Speci men Type: BLOOD SPECIMENOrdering Facility: [facility] Address: [address] [place] [place] [address] Performed By: #### 5 7021-8 ####[facility] LABORATORYCLIA [id number] [place] [address] [place] Neutrophils (Bld) [#/Vol] 12.16 10*3/uL High 1.45-7.50 [facility] Comment on above: Order Comment: Speci men Type: BLOOD SPECIMENOrdering Facility: [facility] Address: [address] [place] [place] [address] Performed By: #### 5 7021-8 ####[facility] LABORATORYCLIA [id number] [address] [place] Neutrophils/100 WBC (Bld) 78.6 % Normal [facility] Comment on above: Order Comment: Speci men Type: BLOOD SPECIMENOrdering Facility: [facility] Address: [address] [address] Performed By: #### 5 7021-8 ####[facility] LABORATORYCLIA [id number] [address] Nucleated RBC (Bld) [#/Vol] 10*3/uL Normal <0.01 [facility] Comment on above: Order Comment: Speci men Type: BLOOD SPECIMENOrdering Facility: [facility] Address: [address] [address] Performed By: #### 5 7021-8 ####[facility] LABORATORYCLIA [id number] [address] OF [facility] Nucleated RBC/100 WBC (Bld) [Ratio] 0.0 /100 WBC Normal [facility] Comment on above: Order Comment: Speci men Type: BLOOD SPECIMENOrdering Facility: [facility] Address: [address] [address] Performed By: #### 5 7021-8 ####[facility] LABORATORYCLIA [id number] [place] [address] [place] Platelet mean volume (Bld) [Entitic vol] 13.0 fL High 9.0-12.7 [facility] Comment on above: Order Comment: Speci men Type: BLOOD SPECIMENOrdering Facility: [facility] Address: [address] [address] Performed By: #### 5 7021-8 ####[facility] LABORATORYCLIA [id number] [place] [address] [place] Platelets (Bld) [#/Vol] 180 10*3/uL Normal 150-400 [facility] Comment on above: Order Comment: Speci men Type: BLOOD SPECIMENOrdering Facility: [facility] Address: [address] [address] Result Comment: No c lot detected. Performed By: #### 5 7021-8 ####[facility] LABORATORYCLIA [id number] [address] [place] RBC (Bld) [#/Vol] 5.09 10*6/uL Normal 3.90-5.20 [facility] Comment on above: Order Comment: Speci men Type: BLOOD SPECIMENOrdering Facility: [facility] Address: [place] [address] Performed By: #### 5 7021-8 ####[facility] LABORATORYCLIA [id number] [address] WBC (Bld) [#/Vol] 15.46 10*3/uL High 3.70-11.00 [facility] Comment on above: Order Comment: Speci men Type: BLOOD SPECIMENOrdering Facility: [facility] Address: [place] [address] Performed By: #### 5 7021-8 ####[facility] LABORATORYCLIA [id number] [address] ECG COMPLETEon 01-31-2023 ECG COMPLETE Ventricular Rate : 8 0 BPM Atrial Rate : 80 BPM P-R Interval : 144 ms QRS Duration : 84 ms Q-T Interval : 402 ms QTC Calculation(Bazett) : 463 ms Calculated P [place] : 26 degrees Calculated R [place] : 78 degrees Calculated T [place] : 72 degrees Normal sinus rhythm Nonspecific T wave abnormality Abnormal ECG When compared with ECG of 23-NOV-2022 18:14, Nonspecific T wave abnormality now evident in Lateral leads QT has lengthened Confirmed by ANASTASIA CHENG MD ([id number]) on 01/31/2023 11:03:12 PM NAME : KATHLEEN VILLA PID : [id number] : 1995 Gender : Female Race : ORD : [id number] Procedure Date : Jan 31 2023 19:42:30 Edit Date : Jan 31 2023 23:03:15 Diagnosis: Normal sinus rhythm Nonspecific T wave abnormality Abnormal ECG When compared with ECG of 23-NOV-2022 18:14, Nonspecific T wave abnormality now evident in Lateral leads QT has lengthened Confirmed by ANASTASIA CHENG MD ([id number]) on 01/31/2023 11:03:12 PM Test Reason : STAT Location : 0 : ED 9 Overread By : ANASTASIA CHENG MD Edited By : ANASTASIA CHENG MD Referred By : , Acquired by : [facility], [facility] ED NOTEon 01-31-2023 ED NOTE HNO ID: [id number] Author: Clementina Alarcon RN Service: Nursing Author Type: Registered Nurse Type: ED Notes Filed: 01/31/2023 9:06 PM Note Text: Report to oncoming nurse. [facility] ED NOTE HNO ID: [id number] Author: Blaise Flower RN Service: ? Author Type: Registered Nurse Type: ED Notes Filed: 01/31/2023 7:21 PM Note Text: Bed: 09-ED Expected date: 01/31/23 Expected time: Means of arrival: Comments: [facility] ED Triage Noteon 01-31-2023 ED Triage Note HNO ID: [id number] Author: Huy Horton PA-C Service: ? Author Type: Physician Systems Librarian Type: ED Triage Notes Filed: 01/31/2023 7:06 [...] obtained and pending. SIGNATURE: Huy Horton PA-C [facility] Gas and Carbon monoxide pane l (BldV)on 01-31-2023 BASE DEFICIT, VENOUS -2 mmol/L Normal -2-0 [facility] Comment on above: Order Comment: Speci men Type: VENOUS BLOOD SPECIMENOrdering Facility: [facility] Address: [address] [place], [place] [address] Performed By: #### 2 4344-4 ####[facility] RESPIRATORY THERAPYCLIA [id number] [address] [place] Body temperature 98.6 [degF] [facility] Comment on above: Order Comment: Speci men Type: VENOUS BLOOD SPECIMENOrdering Facility: [facility] Address: [address] [place], [place] [address] Performed By: #### 2 4344-4 ####[facility] RESPIRATORY THERAPYCLIA [id number] [place] [address] [place] Calcium.ionized (Bld) [Mass/Vol] 1.11 mmol/L Normal 1.08-1.30 [facility] Comment on above: Order Comment: Speci men Type: VENOUS BLOOD SPECIMENOrdering Facility: [facility] Address: [address] [address] Performed By: #### 2 4344-4 ####[facility] RESPIRATORY THERAPYCLIA [id number] [address] [place] Carboxyhemoglobin (BldV) [Mass fraction] 0.8 % Normal 0.0-2.0 [facility] Comment on above: Order Comment: Speci men Type: VENOUS BLOOD SPECIMENOrdering Facility: [facility] Address: [address] [address] Result Comment: Carb oxyhemoglobin Reference Range for Smokers: 2.0-8.0% Performed By: #### 2 4344-4 ####[facility] RESPIRATORY THERAPYCLIA [id number] [address] [place] CO2 (BldV) [Partial pressure] 22 mm[Hg] Low 42-55 [facility] Comment on above: Order Comment: Speci men Type: VENOUS BLOOD SPECIMENOrdering Facility: [facility] Address: [address] [address] Performed By: #### 2 4344-4 ####[facility] RESPIRATORY THERAPYCLIA [id number] [place] [address] [place] Glucose [Mass/Vol] 303 mg/dL High 60-105 [facility] Comment on above: Order Comment: Speci men Type: VENOUS BLOOD SPECIMENOrdering Facility: [facility] Address: [address] [address] Performed By: #### 2 4344-4 ####[facility] RESPIRATORY THERAPYCLIA [id number] [place] [address] [place] HCO3 (Bld) [Moles/Vol] 18 mmol/L Low 24-28 [facility] Comment on above: Order Comment: Speci men Type: VENOUS BLOOD SPECIMENOrdering Facility: [facility] Address: [address] [place] [place] [address] Performed By: #### 2 4344-4 ####[facility] RESPIRATORY THERAPYCLIA [id number] [place] [address] [place] Hemoglobin (Bld) [Mass/Vol] 15.2 g/dL Normal 11.5-15.5 [facility] Comment on above: Order Comment: Speci men Type: VENOUS BLOOD SPECIMENOrdering Facility: [facility] Address: [address] [place] [place] [address] Performed By: #### 2 4344-4 ####[facility] RESPIRATORY THERAPYCLIA [id number] [address] [place] Lactate [Moles/Vol] 2.1 mmol/L Normal 0.5-2.2 [facility] Comment on above: Order Comment: Speci men Type: VENOUS BLOOD SPECIMENOrdering Facility: [facility] Address: [address] [place] [place] [address] Performed By: #### 2 4344-4 ####[facility] RESPIRATORY THERAPYCLIA [id number] [address] [place] Methemoglobin (Bld) [Mass fraction] 0.3 % Normal 0.0-1.5 [facility] Comment on above: Order Comment: Speci men Type: VENOUS BLOOD SPECIMENOrdering Facility: [facility] Address: [address] [address] Performed By: #### 2 4344-4 ####[facility] RESPIRATORY THERAPYCLIA [id number] [address] [place] O2 THERAPY RA=Room Air Normal [facility] Comment on above: Order Comment: Speci men Type: VENOUS BLOOD SPECIMENOrdering Facility: [facility] Address: [address] [place] [place] [address] Performed By: #### 2 4344-4 ####[facility] RESPIRATORY THERAPYCLIA [id number] [address] [place] Oxygen (BldV) [Partial pressure] 28 mm[Hg] Low 35-45 [facility] Comment on above: Order Comment: Speci men Type: VENOUS BLOOD SPECIMENOrdering Facility: [facility] Address: [address] [place] [place] [address] Performed By: #### 2 4344-4 ####[facility] RESPIRATORY THERAPYCLIA [id number] [place] [address] [place] Oxyhemoglobin (BldV) [Mass fraction] 63 % Normal 4-98 [facility] Comment on above: Order Comment: Speci men Type: VENOUS BLOOD SPECIMENOrdering Facility: [facility] Address: [address] [place] [place] [address] Performed By: #### 2 4344-4 ####[facility] RESPIRATORY THERAPYCLIA [id number] [place] [address] [place] pH (BldV) 7.53 [pH] High 7.32-7.42 [facility] Comment on above: Order Comment: Speci men Type: VENOUS BLOOD SPECIMENOrdering Facility: [facility] Address: [address] [place] [place] [address] Performed By: #### 2 4344-4 ####[facility] RESPIRATORY THERAPYCLIA [id number] [place] [address] [place] Potassium [Moles/Vol] 3.9 mmol/L Normal 2.5-6.[address] [facility] Comment on above: Order Comment: Speci men Type: VENOUS BLOOD SPECIMENOrdering Facility: [facility] Address: [address] [place] [place] [address] Performed By: #### 2 4344-4 ####[facility] RESPIRATORY THERAPYCLIA [id number] [address] [place] Sodium [Moles/Vol] 138 mmol/L Normal 136-144 [facility] Comment on above: Order Comment: Speci men Type: VENOUS BLOOD SPECIMENOrdering Facility: [facility] Address: [address] Performed By: #### 2 4344-4 ####[facility] THERAPYCLIA [id number] [place] [address] [place] HCG QUAL BLDon 01-31-2023 HCG, QUALITATIVE Negative Normal Negative [facility] Comment on above: Order Comment: Speci men Type: BLOOD SPECIMENOrdering Facility: [facility] Address: [address] [place] [address] Performed By: #### 2 4325-3, 08867-4, HCG ####[facility] LABORATORYCLIA [id number] [address] [place] HIGH SENSITIVITY TROPONIN Io n 01-31-2023 Tropinin I.cardiac panel High sensitivity method <2.5 Normal 0.0-34.0 [facility] Comment on above: Order Comment: Speci men Type: BLOOD SPECIMENOrdering Facility: [facility] Address: [address] [place] [address] Result Comment: This assay uses different antibodies than our current assay, and assays, even by the same road crossing guard may recognize different regions of the antibody and cannot be used interchangeably. Expect results of this assay to run higher than the previous assay. Performed By: #### H STROP ####[facility] LABORATORYCLIA [id number] [address] [place] Hepatic function 2000 panelo n 01-31-2023 Albumin [Mass/Vol] 4.3 g/dL Normal 3.2-5.0 [facility] Comment on above: Order Comment: Speci men Type: BLOOD SPECIMENOrdering Facility: [facility] Address[facility] [address] [facility] [address] [address] Performed By: #### 2 4325-3, 59790-1, HCG ####[facility] LABORATORYCLIA [id number] [address] [place] ALP [Catalytic activity/Vol] 93 U/L Normal 45-117 [facility] Comment on above: Order Comment: Speci men Type: BLOOD SPECIMENOrdering Facility: [facility] Address: [address] [place] [place] [address] Performed By: #### 2 4325-3, 56521-6, HCG ####[facility] LABORATORYCLIA [id number] [address] STATES OF [facility] ALT [Catalytic activity/Vol] 21 U/L Normal 13-61 [facility] Comment on above: Order Comment: Speci men Type: BLOOD SPECIMENOrdering Facility: [facility] Address: [address] [place] [place] [address] Result Comment: Resu lts may be falsely depressed after the administration of Sulfasalazine and/or Sulfapyridine. Performed By: #### 2 4325-3, 73153-6, HCG ####[facility] LABORATORYCLIA [id number] [address] [place] AST [Catalytic activity/Vol] 19 U/L Normal 8-34 [facility] Comment on above: Order Comment: Speci men Type: BLOOD SPECIMENOrdering Facility: [facility] Address: [address] [place] [place] [address] Result Comment: Resu lts may be falsely depressed after the administration of Sulfasalazine and/or Sulfapyridine. Performed By: #### 2 4325-3, 50986-6, HCG ####[facility] LABORATORYCLIA [id number] [place] [address] [place] Bilirubin [Mass/Vol] 0.8 mg/dL Normal 0.2-1.0 [facility] Comment on above: Order Comment: Speci men Type: BLOOD SPECIMENOrdering Facility: [facility] Address: [address] [place] [place] [address] Performed By: #### 2 4325-3, 72418-7, HCG ####[facility] LABORATORYCLIA [id number] [address] OF [facility] Bilirubin.conjugated [Mass/Vol] 0.2 mg/dL Normal 0.0-0.4 [facility] Comment on above: Order Comment: Speci men Type: BLOOD SPECIMENOrdering Facility: [facility] Address: [address] [address] Performed By: #### 2 4325-3, 22684-7, HCG ####[facility] LABORATORYCLIA [id number] [place] [id number] [facility] Protein [Mass/Vol] 7.3 g/dL Normal 6.0-8.5 [facility] Comment on above: Order Comment: Speci men Type: BLOOD SPECIMENOrdering Facility: [facility] Address: [address] [place] [address] Performed By: #### 2 4325-3, 30043-5, HCG ####[facility] LABORATORYCLIA [id number] [place] [id number] [facility] [place] Lipase SerPl-cCncon 02-01-20 23 Lipase [Catalytic activity/Vol] 21 U/L Normal 12-60 [facility] Comment on above: Order Comment: Speci men Type: BLOOD SPECIMENOrdering Facility: [facility] Address: [address] [place] [place] [address] Performed By: #### 3 040-3 ####[facility] LABORATORYCLIA [id number] [address] SEPSIS LACTATEon 01-31-2023 Lactate [Moles/Vol] 3.0 mmol/L High 0.4-2.0 [facility] Comment on above: Order Comment: Speci men Type: BLOOD SPECIMENOrdering Facility: [facility] Address: [address] [place] [place] [address] Performed By: #### S LACT ####[facility] LABORATORYCLIA [id number] [address] [place] XR ACUTE ABD SERIES [...] bowel. Consider CT if concern remains high. Masonry Teacher: PSCB Transcribe Date/Time: Jan 31 2023 7:56P Dictated by : SARAVANAN REESE MD This examination was interpreted and the report reviewed and electronically signed by: SARAVANAN REESE MD on Jan 31 2023 8:00PM EST [id number] Normal [facility] Bacteria Ur Culton 3 Bacteria identified Cx Nom (U) CULTURE, URINE: <10,000 CFU/ml Normal Urogenital Dorothy Normal [facility] Comment on above: Performed By: #### 6 30-4 ####[facility] LABORATORYCLIA [id number] [address] [place] CNNURSEon 01-25-2023 CNNURSE Nurse Visit (FAMPOR) KATHLEEN VILLA ([id number]) 1995 F T Date Time Provider Department [...] Other Visit Diagnosis:Dysuria [R30.0] Order(s):UA DIP B/O [[id number]] Order #: [id number] Prescriptions as of 01/25/2023 - prochlorperazine (COMPAZINE) [...] (BAQSIMI) 3 mg/actuation nasal spray Use 1 Richey in the nose as needed for low [...] Marfan syndrome [Q87.40] 12/25/2012 DM (diabetes mellitus) ([facility]) [E11.9] 12/25/2012 Gastroparesis due to DM (HCC) [...] 12/08/2022 Encoun (more content not included)... Normal [facility] HEMOGLOBIN A1C (POC)on 01-25 HbA1c (Bld) [Mass fraction] 7.6 % Abnormal 4.2 - 5.6 % [facility] Laboratory - Chemistry and C hemistry - challengeon 01-25-2023 Glucose Ql (U) Negative Neg mg/dL [facility] [facility] Ketones Ql (U) Negative Neg [facility] pH (U) 6.5 [pH] 4.5 - 8.0 [facility] Protein.monoclonal (U) [Mass/Vol] Negative Neg mg/dL [facility] Laboratory - Urinalysison Nitrite Ql (U) Negative Neg [facility] No Panel Informationon 01-25 Bilirubin, Urine Negative Neg [facility] Color/Appearance Yellow/clear [facility] Hemoglobin/Blood,Ur Negative Neg [facility] Leukocytes Negative Neg [facility] Specific [place], Ur 1.020 1.005 - 1.030 C [facility] Urobilinogen, Urine 0.2 EU Normal ( <1.1) EU [facility] CNPNon 01-24-2023 CNPN Telephone (FAMPOR) KATHLEEN VILLA ([id number]) 1995 F CHT Date Time Provider Department 01/24/23 VIVI SMITH During your visit today, we recorded the following information about you: Radha Mandel MA 01/24/2023 11:44 AM Signed Yaima from [facility] called and they need an [...] (BAQSIMI) 3 mg/actuation nasal spray Use 1 Richey in the nose as needed for low [...] VIVI SMITH on (more content not included)... [facility] CNPN Telephone (FAMPOR) KATHLEEN VILLA ([id number]) 1995 F CHT Date Time Provider Department 01/24/23 [facility]IV[facility] SMITH [facility] During your visit today, we recorded the [...] Diagnosis:Left flank pain [R10.9] Order(s):UA DIP B/O [[id number]] Order #: [id number] FUTURE URINE CULTURE [SQURCUL] Order #: [id number] Prescriptions as of 01/25/2023 - prochlorperazine (COMPAZINE) [...] (BAQSIMI) 3 mg/actuation nasal spray Use 1 Richey in the nose as needed for low [...] 04/16/2014 [Z34.90] 11/22/2013 04/16/2014 Diabetes mellitus in ([facility]) [O24.919] 12/25/2013 04/16/2014 DKA (diabetic ketoacidoses) [E11.10] [...] constipation [K59.04] 10/27 (more content not included)... [facility] KATH[facility] VILL[facility] ([id number]) 1995 F CHT Date Time Provider Department [...] (BAQSIMI) 3 mg/actuation nasal spray Use 1 Richey in the nose as needed for low [...] Status:Closed by YAIMA AGUILAR on 01/26/23 Normal [facility] Bacteria Ur Culton 3 Bacteria identified Cx Nom (U) CULTURE, URINE: 10,000-<50,000 CFU/mL Three or more organisms, no one type predominant, suggesting contamination during collection. Recollect if clinically indicated. Abnormal [facility] Comment on above: Performed By: #### 6 30-4 ####[facility] LABORATORYCLIA [id number] [address] OF [facility] CNOVon 01-20-2023 CNOV Office Visit (FAMPOR ) KATHLEEN VILLA ([id number]) 1995 F [facility] Date Time Provider Department 01/20/23 11:00 AM [...] 200s/. She sees Endo next week. Seeing [employer] and had recent negative pap smear and [...] (BAQSIMI) 3 mg/actuation nasal spray Use 1 Richey in the nose as needed for low [...] Ear: Ty (more content not included)... Normal [facility] C. trachomatis+N. gonorrhoea e DNA DANIEL+probe Ql (Unsp spec)on 01-12-2023 C. trachomatis DNA DANIEL+probe Ql (Unsp spec) Negative Normal Negative for Chlamydia trachomatis by amplificaton [facility] Comment on above: Order Comment: Speci men Type: SWAB Ordering Facility: [facility] Address: [address] [place] [phone] Performed By: #### 3 6902-5 #### [facility] CLIA [id number] [address] [place], [place] [address] [place] N. gonorrhoeae DNA DANIEL+probe Ql (Unsp spec) Negative Normal Negative for Neisseria gonorrhoeae by amplification [facility] Comment on above: Order Comment: Speci men Type: SWAB Ordering Facility: [facility] Address: [facility] [address] Performed By: #### 3 6902-5 #### [facility] CLIA [id number] [facility] [place] [address] [facility] CNOVon 01-12-2023 CNOV Office Visit (OBGYMM ) KATHLEEN VILLA ([id number]) 1995 F CHT Date Time Provider Department [...] fevers GI: No nausea, vomiting, or diarrhea [employer] MEDIA PERSONALITY: Negative for abnormal vaginal bleeding, abnormal vaginal [...] [SQGCCAMP] Order (more content not included)... Normal [facility] HBV surface Ag Ser Qlon 12-26 HBV surface Ag Ql (S) Non-Reactive Normal Equivo cristina, Nonreactive [facility] Comment on above: Order Comment: Speci men Type: BLOOD SPECIMEN Ordering Facility: [facility] Address: [address] [place] [phone] Result Comment: Resu lts were obtained with the [employer] IM IgM assay. Values obtained with different manufactures' assay methods may not be used interchangeably. Performed By: #### 3 1201-7, 5195-3, 55641-1, SYPH #### [facility] CLIA [id number] [address] [place] [address] [place] HCV Ab Ser Qlon 01-12-2023 HCV Ab Ql (S) Non-Reactive Normal Nonreactive [facility] Comment on above: Order Comment: Speci men Type: BLOOD SPECIMEN Ordering Facility: [facility] Address: [address] [place] [address] Result Comment: Scre ening test negative Nonreactive HCV Antibody Screen is consistent with no HCV infection, unless recent infection is suspected or other evidence exists to indicate HCV infection. Results were obtained with the [employer] IM IgM assay. Values obtained with different manufactures' assay methods may not be used interchangeably. Performed By: #### 3 1201-7, 5195-3, 57486-2, SYPH #### [facility] CLIA [id number] [address] [place] [address] [place] HIV 1+2 Ab IA Qlon HIV 1+2 Ab+HIV1 p24 Ag IA Ql Non-Reactive Normal Nonreactive [facility] Comment on above: Order Comment: Speci men Type: BLOOD SPECIMEN Ordering Facility: [facility] Address: [address] [place] [address] Result Comment: Nonr eactive: Less than 1.0 index value Specimens with an index value <1.0 are considered nonreactive for antibodies to HIV-1, HIV-2, and p24 antigen by the [employer] IM CHIV assay. Performed By: #### 3 1201-7, 5195-3, 21456-4, SYPH #### [facility] CLIA [id number] [address] [place] [address] OF [place] TREPONEMA PALLIDUM SCREENon 01-12-2023 T. pallidum IgG IF Ql (S) Non-Reactive Normal Nonreactive [facility] Comment on above: Order Comment: Speci men Type: BLOOD SPECIMEN Ordering Facility: [facility] Address: [address] [place] [address] Result Comment: Samp les with an index value of less than 0.90 are considered Nonreactive for Syphilis T. pallidum antibodies. Performed By: #### 3 1201-7, 5195-3, 20663-0, SYPH #### [facility] CLIA [id number] [address] [place], [place] [address] [facility] WET PREPon 01-12-2023 WET PREP WET PREP RESULT: No Trichomonads, No yeast observed Moderate Clue cells present Normal [facility] Comment on above: Performed By: #### L [id number] #### [facility] CLIA [id number] [address] [place], [place] [address] [facility] HEMOGLOBIN A1C (POC)on 08-16 HbA1c (Bld) [Mass fraction] 7.0 % Abnormal 4.2 - 5.6 % [facility] BMPon 02-01-2022 Anion gap [Moles/Vol] 7 mmol/L Normal 5-16 [facility] Comment on above: Order Comment: Campu s: M Performed By: #### L 500.98044, L500.90974, L500.82361 ####[facility] [id number] [place], [place] [address]Xi# [phone] BUN/CREA TNP Normal 15-24 [facility] Comment on above: Order Comment: Campu s: M Performed By: #### L 500.78252, L500.37420, L500.73826 ####[facility] [id number] [place], [place] [address]La# [phone] Calcium [Mass/Vol] 8.4 mg/dL Low 8.5-10.5 [facility] Comment on above: Order Comment: Campu s: M Result Comment: NOTE NEW NORMAL RANGE DUE TO REAGENT CHANGE Performed By: #### L 500.09572, L500.10586, L500.55324 ####[facility] [id number] [place], [place] [address]Ly# [phone] Chloride [Moles/Vol] 112 mmol/L High 98-107 [facility] Comment on above: Order Comment: Campu s: M Performed By: #### L 500.58022, L500.69099, L500.31337 ####[facility] [id number] [place], [place] [address]Cj# [phone] CO2 [Moles/Vol] 24.0 mmol/L Normal 21-32 [facility] Comment on above: Order Comment: Campu s: M Performed By: #### L 500.34161, L500.23520, L500.65192 ####[facility] [id number] [place], [place] [address]Yr# [phone] Creatinine [Mass/Vol] 0.64 mg/dL Normal 0.510-0.950 [facility] Comment on above: Order Comment: Campu s: M Result Comment: Cleopatra ents receiving either N-Acetylcysteine (NAC) orMetamizole prior to venipuncture, may have falsely depressedresults. Performed By: #### L 500.72723, L500.61744, L500.83334 ####[facility] [id number] [place], [place] [address]Zg# [phone] Glucose [Mass/Vol] 104 mg/dL High 70-100 [facility] Comment on above: Order Comment: Campu s: M Result Comment: 70-1 00- Normal Fasting; 100-125 Impaired Fasting; greaterthan 126 on more than one result- Diabetes. ADA guidelines.Results may be falsely elevated after the administration ofSulfapyridine.Results may be falsely depressed after the administration ofSulfasalazine. Performed By: #### L 500.19598, L500.46783, L500.65058 ####[facility] [id number] [place], [place] [address]Fz# [phone] Potassium [Moles/Vol] 3.7 mmol/L Normal 3.5-5.1 [facility] Comment on above: Order Comment: Campu s: M Result Comment: Slig ht Hemolysis, Result may be affected. Performed By: #### L 500.88925, L500.24766, L500.14231 ####[facility] [id number] [place], [place] [address]Yd# [phone] Sodium [Moles/Vol] 143 mmol/L Normal 136-145 [facility] Comment on above: Order Comment: Campu s: M Performed By: #### L 500.34047, L500.03490, L500.25482 ####[facility] [id number] [place] [address]Cs# [phone] Urea nitrogen [Mass/Vol] 5 mg/dL Low 7-26 [facility] Comment on above: Order Comment: Campu s: M Performed By: #### L 500.44037, L500.41331, L500.70504 ####[address] [address]Ls# [phone] CBC W/DIFFon 02-01-2022 BASO ABS 0.10 K/CU MM Normal 0-0.2 [facility] Comment on above: Order Comment: Campu s: M Performed By: #### L 200.74624 ####[address] [address]Da# [phone] Basophils/100 WBC (Bld) 0.6 % Normal 0-2 [facility] Comment on above: Order Comment: Campu s: M Performed By: #### L 200.56714 ####[facility] [id number] [place] [address]Ev# [phone] EOS ABS 0.10 K/CU MM Normal 0-0.5 [facility] Comment on above: Order Comment: Campu s: M Performed By: #### L 200.88390 ####[facility] [id number] [place] [address]Sm# [phone] Eosinophils/100 WBC (Bld) 1.3 % Normal 0-5 [facility] Comment on above: Order Comment: Campu s: M Performed By: #### L 200.38106 ####[facility] VGGPCHCOIH[address] [place] [address]Eo# [phone] Erythrocyte distribution width (RBC) [Ratio] 13.8 % Normal 11-14.5 [facility] Comment on above: Order Comment: Campu s: M Performed By: #### L 200.32314 ####[facility] AZPKTPJHYE[address] [place] [address]Gq# [phone] Hematocrit (Bld) [Volume fraction] 36.9 % Normal 35.0-47.0 [facility] Comment on above: Order Comment: Campu s: M Performed By: #### L 200.31751 ####[facility] [id number] [place], [place] [address]Ph# [phone] Hemoglobin (Bld) [Mass/Vol] 12.3 g/dL Normal 11.5-15.5 [facility] Comment on above: Order Comment: Campu s: M Performed By: #### L 200.19735 ####[facility] [id number] [place], [place] [address]Ph# [phone] IMMATR GRAN ABS 0.20 K/CU MM Normal Less than 2 [facility] Comment on above: Order Comment: Campu s: M Performed By: #### L 200.78318 ####[facility] [id number] [place] [address]Ab# [phone] IMMATURE GRAN % 2.2 % Normal Less than 2 [facility] Comment on above: Order Comment: Campu s: M Performed By: #### L 200.19233 ####[facility] [id number] [place], [place] [address]Ph# [phone] LYMPH ABS 3.70 K/CU MM Normal 0.9-4.4 [facility] Comment on above: Order Comment: Campu s: M Performed By: #### L 200.04835 ####[facility] [id number] [place], [place] [address]Ph# [phone] Lymphocytes/100 WBC (Bld) 33.6 % Normal 20-40 [facility] Comment on above: Order Comment: Campu s: M Performed By: #### L 200.47404 ####[facility] [id number] [place], [place] [address]Qd# [phone] MCHC (RBC) [Mass/Vol] 33.3 g/dL Normal 32.0-36.[address] [facility] Comment on above: Order Comment: Campu s: M Performed By: #### L 200.32443 ####[facility] [id number] [place] [address]Zd# [phone] MCV (RBC) [Entitic vol] 86.8 fL Normal 80.0-99.0 [facility] Comment on above: Order Comment: Campu s: M Performed By: #### L 200.77684 ####[address] [address]Eq# [phone] MONO ABS 0.80 K/CU MM Normal 0.1-1.1 [facility] Comment on above: Order Comment: Campu s: M Performed By: #### L 200.30352 ####[place] [address]Ph# [phone] Monocytes/100 WBC (Bld) 7.3 % Normal 2-10 [facility] Comment on above: Order Comment: Campu s: M Performed By: #### L 200.54879 ####[facility] INWHIWVVDM[address] [place] [address]Dr# [phone] NEUTROPHIL ABS 6.00 K/CU MM Normal 2.0-8.3 [facility] Comment on above: Order Comment: Campu s: M Performed By: #### L 200.65549 ####[facility] [id number] [place] [address]Cc# [phone] Neutrophils/100 WBC (Bld) 55.0 % Normal 45-75 [facility] Comment on above: Order Comment: Campu s: M Performed By: #### L 200.56827 ####[facility] [id number] [place], [place] [address]Ph# [phone] Nucleated RBC/100 WBC (Bld) [Ratio] 0.0 % Normal Less than 1 [facility] Comment on above: Order Comment: Campu s: M Performed By: #### L 200.35376 ####[facility] [id number] [place], [place] [address]Tj# [phone] Platelet mean volume (Bld) [Entitic vol] 11.3 fL Normal 9.4-12.4 [facility] Comment on above: Order Comment: Campu s: M Performed By: #### L 200.65261 ####[facility] [id number] [place], [place] [address]Od# [phone] PLT 173 K/CU MM Normal 150-450 [facility] Comment on above: Order Comment: Campu s: M Performed By: #### L 200.24675 ####[facility] JRZPNMYZSH[address] [place] [address]Tl# [phone] RBC 4.25 M/CU MM Normal 3.90-5.30 [facility] Comment on above: Order Comment: Campu s: M Performed By: #### L 200.97042 ####[facility] [id number] [place], [place] [address]Jy# [phone] WBC 10.9 K/CUMM Normal 4.5-11.0 [facility] Comment on above: Order Comment: Campu s: M Performed By: #### L 200.54583 ####[facility] [id number] [place] [address]Kv# [phone] DISCH.SUMon 02-01-2022 DISCH.SUM Normal [facility] GFR ESTon 02-01-2022 IF AMER Greater than [address] [facility] Comment on above: Order Comment: Campu s: M Performed By: #### L 500.63798, L500.11634, L500.91397 ####[facility] [id number] [place], [place] [address]Mu# [phone] IF non-AFR AMER Greater than [address] [facility] Comment on above: Order Comment: Campu s: M Performed By: #### L 500.48625, L500.16169, L500.38552 ####[facility] [id number] [place], [place] [address]Qh# [phone] GLUCOSE METERon 02-01-2022 Glucose [Mass/Vol] 291 mg/dL High 70-115 [facility] Glucose [Mass/Vol] 89 mg/dL Normal 70-115 [facility] MAGNESIUMon 02-01-2022 Magnesium [Mass/Vol] 2.0 mg/dL Normal 1.6-2.6 [facility] Comment on above: Order Comment: Campu s: M Performed By: #### L 500.95651, L500.17943, L500.89592 ####[facility] [id number] [place], [place] [address]Hh# [phone] BMPon 01-31-2022 Anion gap [Moles/Vol] 12 mmol/L Normal 5-[address] [facility] Comment on above: Order Comment: Campu s: M Performed By: #### L 500.67556, L500.97301, L500.96945 ####[facility] [id number] [place], [place] [address]Da# [phone] Calcium [Mass/Vol] 9.1 mg/dL Normal 8.5-10.5 [facility] Comment on above: Order Comment: Campu s: M Result Comment: NOTE NEW NORMAL RANGE DUE TO REAGENT CHANGE Performed By: #### L 500.58509, L500.74856, L500.80997 ####[facility] [id number] [place], [place] [address]Lv# [phone] Chloride [Moles/Vol] 106 mmol/L Normal 98-107 [facility] Comment on above: Order Comment: Campu s: M Performed By: #### L 500.00094, L500.56814, L500.34235 ####[facility] [id number] [place], [place] [address]Dx# [phone] CO2 [Moles/Vol] 24.0 mmol/L Normal 21-32 [facility] Comment on above: Order Comment: Zach Ricks Performed By: #### L 500.75130, L500.99437, L500.59059 ####[facility] [id number] [place], [place] [address]Ip# [phone] Creatinine [Mass/Vol] 0.61 mg/dL Normal 0.510-0.950 [facility] Comment on above: Order Comment: Zach s: M Result Comment: Cleopatra ents receiving either N-Acetylcysteine (NAC) orMetamizole prior to venipuncture, may have falsely depressedresults. Performed By: #### L 500.15809, L500.90089, L500.32183 ####[facility] [id number] [place], [place] [address]Ao# [phone] Glucose [Mass/Vol] 167 mg/dL High 70-100 [facility] Comment on above: Order Comment: Zach s: Millicent Result Comment: Delt a check [id number] Normal Fasting; 100-125 Impaired Fasting; greaterthan 126 on more than one result- Diabetes. ADA guidelines.Results may be falsely elevated after the administration ofSulfapyridine.Results may be falsely depressed after the administration ofSulfasalazine. Performed By: #### L 500.57429, L500.82962, L500.98527 ####[facility] [id number] [place], [place] [address]Iy# [phone] Potassium [Moles/Vol] 3.7 mmol/L Normal 3.5-5.[address] [facility] Comment on above: Order Comment: Zach richter: Millicent Result Comment: Slig ht Hemolysis, Result may be affected. Performed By: #### L 500.99037, L500.72372, L500.85324 ####[facility] [id number] [place], [place] [address]Lm# [phone] Sodium [Moles/Vol] 142 mmol/L Normal 136-145 [facility] Comment on above: Order Comment: Campu s: M Performed By: #### L 500.08464, L500.38953, L500.46302 ####[facility] [id number] [place], [place] [address]Rk# [phone] Urea nitrogen [Mass/Vol] 7 mg/dL Normal 7-26 [facility] Comment on above: Order Comment: Campu s: M Performed By: #### L 500.89063, L500.09462, L500.64337 ####[facility] [id number] [place] [address]Ag# [phone] Urea nitrogen/Creatinine [Mass ratio] 11 mg/mg Low 15-24 [facility] Comment on above: Order Comment: Campu s: M Performed By: #### L 500.11355, L500.50334, L500.06022 ####[place] [address]Ph# [phone] CBC W/DIFFon 01-31-2022 BASO ABS 0.10 K/CU MM Normal 0-0.2 [facility] Comment on above: Order Comment: Campu s: M Performed By: #### L 200.31163 ####[address] [address]Ct# [phone] Basophils/100 WBC (Bld) 0.5 % Normal 0-2 [facility] Comment on above: Order Comment: Campu s: M Performed By: #### L 200.82537 ####[facility] [id number] [place] [address]Uy# [phone] EOS ABS 0.00 K/CU MM Normal 0-0.5 [facility] Comment on above: Order Comment: Campu s: M Performed By: #### L 200.49185 ####[facility] [id number] [place] [address]Cs# [phone] Eosinophils/100 WBC (Bld) 0.1 % Normal 0-5 [facility] Comment on above: Order Comment: Campu s: M Performed By: #### L 200.54008 ####[facility] [id number] [place], [place] [address]An# [phone] Erythrocyte distribution width (RBC) [Ratio] 13.9 % Normal 11-14.5 [facility] Comment on above: Order Comment: Campu s: M Performed By: #### L 200.25239 ####[facility] [id number] [place], [place] [address]Ph# [phone] Hematocrit (Bld) [Volume fraction] 37.5 % Normal 35.0-47.0 [facility] Comment on above: Order Comment: Campu s: M Performed By: #### L 200.22370 ####[address] [address]Op# [phone] Hemoglobin (Bld) [Mass/Vol] 12.3 g/dL Normal 11.5-15.5 [facility] Comment on above: Order Comment: Campu s: M Performed By: #### L 200.81564 ####[place] [address]Ph# [phone] IMMATR GRAN ABS 0.30 K/CU MM Normal Less than 2 [facility] Comment on above: Order Comment: Campu s: M Performed By: #### L 200.74269 ####[facility] [id number] [place], [place] [address]Ph# [phone] IMMATURE GRAN % 1.9 % Normal Less than 2 [facility] Comment on above: Order Comment: Campu s: M Performed By: #### L 200.51329 ####[facility] [id number] [place], [place] [address]Ph# [phone] LYMPH ABS 4.00 K/CU MM Normal 0.9-4.4 [facility] Comment on above: Order Comment: Campu s: M Performed By: #### L 200.17995 ####[facility] [id number] [place], [place] [address]Ph# [phone] Lymphocytes/100 WBC (Bld) 24.8 % Normal 20-40 [facility] Comment on above: Order Comment: Campu s: M Performed By: #### L 200.33546 ####[facility] [id number] [place] [address]Hp# [phone] MCHC (RBC) [Mass/Vol] 32.8 g/dL Normal 32.0-36.[address] [facility] Comment on above: Order Comment: Campu s: M Performed By: #### L [id number] ####[place] [id number]# [phone] MCV (RBC) [Entitic vol] 87.6 fL Normal 80.0-99.0 [facility] Comment on above: Order Comment: Campu s: M Performed By: #### L [id number] ####[place] [id number]# [phone] MONO ABS 1.00 K/CU MM Normal 0.1-1.1 [facility] Comment on above: Order Comment: Campu s: M Performed By: #### L 200.45509 ####[address] [address]Mx# [phone] Monocytes/100 WBC (Bld) 6.2 % Normal 2-10 [facility] Comment on above: Order Comment: Campu s: M Performed By: #### L 200.39026 ####[facility] [id number] [place] [address]Zk# [phone] NEUTROPHIL ABS 10.60 K/CU MM High 2.0-8.3 [facility] Comment on above: Order Comment: Campu s: M Performed By: #### L 200.90951 ####[facility] [id number] [place], [place] [address]Ph# [phone] Neutrophils/100 WBC (Bld) 66.5 % Normal 45-75 [facility] Comment on above: Order Comment: Campu s: M Performed By: #### L 200.36063 ####[facility] [id number] [place], [place] [address]Qa# [phone] Nucleated RBC/100 WBC (Bld) [Ratio] 0.0 % Normal Less than 1 [facility] Comment on above: Order Comment: Campu s: M Performed By: #### L 200.60626 ####[facility] [id number] [place], [place] [address]Uj# [phone] Platelet mean volume (Bld) [Entitic vol] 12.0 fL Normal 9.4-12.4 [facility] Comment on above: Order Comment: Campu s: M Performed By: #### L 200.22882 ####[facility] WOAPPKROHX3345 [place], [place] [address]Pj# [phone] PLT 183 K/CU MM Normal 150-450 [facility] Comment on above: Order Comment: Campu s: M Performed By: #### L 200.56256 ####[facility] ACQVXYFIYS1794 [place], [place] [address]Vs# [phone] RBC 4.28 M/CU MM Normal 3.90-5.30 [facility] Comment on above: Order Comment: Campu s: M Performed By: #### L 200.71886 ####[facility] [id number] [place], [place] [address]Cv# [phone] WBC 16.0 K/CUMM High 4.5-11.0 [facility] Comment on above: Order Comment: Campu s: M Performed By: #### L 200.59813 ####[facility] [id number] [place] [address]Id# [phone] GFR ESTon 01-31-2022 IF AMER Greater than [address] [facility] Comment on above: Order Comment: Campu s: M Performed By: #### L 500.53119, L500.99471, L500.91214 ####[facility] [id number] [place], [place] [address]Bx# [phone] IF non-AFR AMER Greater than [address] [facility] Comment on above: Order Comment: Campu s: M Performed By: #### L 500.94481, L500.10627, L500.10949 ####[facility] FXOLLTJMDV3005 [place], [place] [address]Tr# [phone] GLUCOSE METERon 01-31-2022 Glucose [Mass/Vol] 233 mg/dL High 70-115 [facility] Glucose [Mass/Vol] 216 mg/dL High 70-115 [facility] Glucose [Mass/Vol] 171 mg/dL High 70-115 [facility] Glucose [Mass/Vol] 230 mg/dL High 70-115 [facility] Glucose [Mass/Vol] 284 mg/dL High 70-115 [facility] MAGNESIUMon 01-31-2022 Magnesium [Mass/Vol] 1.8 mg/dL Normal 1.6-2.6 [facility] Comment on above: Order Comment: Campu s: M Performed By: #### L 500.59423, L500.41753, L500.63578 ####[facility] ARAJCKRBAM5627 [place], [place] [address]Jk# [phone] PROG IMSon 01-31-2022 PROG IMS Normal [facility] Progress Note-Hospitalist Normal [facility] BMPon 01-30-2022 Anion gap [Moles/Vol] 8 mmol/L Normal 5-16 [facility] Comment on above: Order Comment: Campu s: M Performed By: #### L 500.48508, L500.23156 ####[facility] KWVYEWGZJT7713 [place], [place] [address]Zz# [phone] Calcium [Mass/Vol] 8.7 mg/dL Normal 8.5-10.5 [facility] Comment on above: Order Comment: Campu s: M Result Comment: NOTE NEW NORMAL RANGE DUE TO REAGENT CHANGE Performed By: #### L 500.37669, L500.03540 ####[facility] [id number] [place], [place] [address]Wp# [phone] Chloride [Moles/Vol] 114 mmol/L High 98-107 [facility] Comment on above: Order Comment: Benjiu s: M Performed By: #### L 500.24660, L500.54240 ####[facility] JWPEXIVWMI0205 [place], [place] [address]Wu# [phone] CO2 [Moles/Vol] 22.0 mmol/L Normal 21-32 [facility] Comment on above: Order Comment: Campu s: M Performed By: #### L 500.89321, L5.48682 ####[facility] VOOOVCYEGQ5164 [place], [place] [address]Kk# [phone] Creatinine [Mass/Vol] 0.68 mg/dL Normal 0.510-0.950 [facility] Comment on above: Order Comment: Benjiu s: M Result Comment: Cleopatra ents receiving either N-Acetylcysteine (NAC) orMetamizole prior to venipuncture, may have falsely depressedresults. Performed By: #### L 500.77139, L5.81098 ####[facility] GYJAHFZXKQ2776 [place], [place] [address]Ux# [phone] Glucose [Mass/Vol] 87 mg/dL Normal 70-100 [facility] Comment on above: Order Comment: Benjiu s: M Result Comment: 70-1 00- Normal Fasting; 100-125 Impaired Fasting; greaterthan 126 on more than one result- Diabetes. ADA guidelines.Results may be falsely elevated after the administration ofSulfapyridine.Results may be falsely depressed after the administration ofSulfasalazine. Performed By: #### L 500.81177, L500.94130 ####[facility] [id number] [place], [place] [address]Rg# [phone] Potassium [Moles/Vol] 3.2 mmol/L Low 3.5-5.1 [facility] Comment on above: Order Comment: Benjiu s: M Result Comment: Slig ht Hemolysis, Result may be affected. Performed By: #### L 500.02292, L500.32308 ####[facility] YCWFWMTNVQ0870 [place], [place] [address]Gt# [phone] Sodium [Moles/Vol] 144 mmol/L Normal 136-145 [facility] Comment on above: Order Comment: Campu s: M Performed By: #### L 500.45741, L500.62766 ####[facility] [id number] [place], [place] [address]Ds# [phone] Urea nitrogen [Mass/Vol] 14 mg/dL Normal 7-26 [facility] Comment on above: Order Comment: Campu s: M Performed By: #### L 500.30762, L500.91019 ####[facility] GTVUHTCQGX7457 [place], [place] [address]Kq# [phone] Urea nitrogen/Creatinine [Mass ratio] 20 mg/mg Normal 15-24 [facility] Comment on above: Order Comment: Campu s: M Performed By: #### L 500.01986, L500.18906 ####[facility] MMCYCKNYZD5479 [place], [place] [address]Dc# [phone] Anion gap [Moles/Vol] 5 mmol/L Normal 5-[address] [facility] Comment on above: Order Comment: Campu s: M Performed By: #### L 500.29332, L500.75332 ####[facility] ITEAOOXCYH6525 [place], [place] [address]Qb# [phone] Calcium [Mass/Vol] 9.0 mg/dL Normal 8.5-10.5 [facility] Comment on above: Order Comment: Campu s: M Result Comment: NOTE NEW NORMAL RANGE DUE TO REAGENT CHANGE Performed By: #### L 500.47140, L500.67588 ####[facility] UTDBTGKBJS0449 [place], [place] [address]Rl# [phone] Chloride [Moles/Vol] 114 mmol/L High 98-107 [facility] Comment on above: Order Comment: Campu s: M Result Comment: Delt a check reviewed Performed By: #### L 500.87700, L500.11807 ####[facility] BQVBRHWEWQ5130 [place], [place] [address]Hv# [phone] CO2 [Moles/Vol] 22.0 mmol/L Normal 21-32 [facility] Comment on above: Order Comment: Zach s: M Result Comment: Delt a check reviewed Performed By: #### L 500.14843, L500.63574 ####[facility] RALUYDVLNX8122 [place], [place] [address]Zp# [phone] Creatinine [Mass/Vol] 0.74 mg/dL Normal 0.510-0.950 [facility] Comment on above: Order Comment: Zach s: M Result Comment: Cleopatra ents receiving either N-Acetylcysteine (NAC) orMetamizole prior to venipuncture, may have falsely depressedresults. Performed By: #### L 500.73850, L500.09348 ####[facility] DG[address]LRESLT[address] [place] [address]Hk# [phone] Glucose [Mass/Vol] 95 mg/dL Normal 70-100 [facility] Comment on above: Order Comment: Zach s: M Result Comment: 70-1 00- Normal Fasting; 100-125 Impaired Fasting; greaterthan 126 on more than one result- Diabetes. ADA guidelines.Results may be falsely elevated after the administration ofSulfapyridine.Results may be falsely depressed after the administration ofSulfasalazine. Performed By: #### L 500.37303, L500.17070 ####[facility] [id number] [place], [place] [address]Bn# [phone] Potassium [Moles/Vol] 3.6 mmol/L Normal 3.5-5.1 [facility] Comment on above: Order Comment: Zach s: M Performed By: #### L 500.62698, L500.12541 ####[facility] IQGTIFKKQW1198 [place], [place] [address]Cr# [phone] Sodium [Moles/Vol] 141 mmol/L Normal 136-145 [facility] Comment on above: Order Comment: Campu s: M Performed By: #### L 500.35480, L500.46857 ####[facility] [address]FFFCW[address] [place] [address]Xg# [phone] Urea nitrogen [Mass/Vol] 18 mg/dL Normal 7-26 [facility] Comment on above: Order Comment: Campu s: M Performed By: #### L 500.04448, L500.48912 ####[facility] [address]JWYR[address] [place] [address]Wd# [phone] Urea nitrogen/Creatinine [Mass ratio] 24 mg/mg Normal 15-24 [facility] Comment on above: Order Comment: Campu s: M Performed By: #### L 500.15476, L500.12157 ####[facility] OFMEAQKQDM[address] [place], [place] [address]Ph# [phone] CBC W/DIFFon 01-30-2022 BASO ABS 0.00 K/CU MM Normal 0-0.2 [facility] Comment on above: Order Comment: Benjiu s: MRN/MD Draw Performed By: #### L 200.33912 ####[facility] [id number] [place] [address]Qi# [phone] Basophils/100 WBC (Bld) 0.2 % Normal 0-2 [facility] Comment on above: Order Comment: Benjiu s: MRN/MD Draw Performed By: #### L 200.52819 ####[facility] VUNPUCVVYX[address] [place] [address]Tm# [phone] EOS ABS 0.00 K/CU MM Normal 0-0.5 [facility] Comment on above: Order Comment: Benjiu s: MRN/MD Draw Performed By: #### L 200.63318 ####[facility] SBVUALFXSI[address] [place] [address]Wo# [phone] Eosinophils/100 WBC (Bld) 0.0 % Normal 0-5 [facility] Comment on above: Order Comment: Campu s: MRN/MD Draw Performed By: #### L 200.06623 ####[facility] [id number] [place], [place] [address]Nt# [phone] Erythrocyte distribution width (RBC) [Ratio] 14.3 % Normal 11-14.5 [facility] Comment on above: Order Comment: Campu s: MRN/MD Draw Performed By: #### L 200.67872 ####[facility] KVZLIJRKRL[address] [place], [place] [address]Ph# [phone] Hematocrit (Bld) [Volume fraction] 34.4 % Low 35.0-47.0 [facility] Comment on above: Order Comment: Campu s: MRN/MD Draw Performed By: #### L 200.37168 ####[facility] WOZXARACUL8978 [place] [address]Ph# [phone] Hemoglobin (Bld) [Mass/Vol] 11.3 g/dL Low 11.5-15.5 [facility] Comment on above: Order Comment: Campu s: MRN/MD Draw Performed By: #### L 200.51151 ####[facility] [id number] [place], [place] [address]Ph# [phone] IMMATR GRAN ABS 0.20 K/CU MM Normal Less than 2 [facility] Comment on above: Order Comment: Campu s: MRN/MD Draw Performed By: #### L 200.64863 ####[facility] JUZKACUJOL[address] [place], [place] [address]Ph# [phone] IMMATURE GRAN % 0.8 % Normal Less than 2 [facility] Comment on above: Order Comment: Campu s: MRN/MD Draw Performed By: #### L 200.19813 ####[facility] [id number] [place], [place] [address]Bg# [phone] LYMPH ABS 2.20 K/CU MM Normal 0.9-4.4 [facility] Comment on above: Order Comment: Campu s: MRN/MD Draw Performed By: #### L 200.93867 ####[facility] KLPWCCUEWV6844 [place], [place] [address]Ix# [phone] Lymphocytes/100 WBC (Bld) 9.0 % Low 20-40 [facility] Comment on above: Order Comment: Campu s: MRN/MD Draw Performed By: #### L 200.01619 ####[facility] [id number] [place], [place] [address]Ph# [phone] MCHC (RBC) [Mass/Vol] 32.8 g/dL Normal 32.0-36.[address] [facility] Comment on above: Order Comment: Campu s: MRN/MD Draw Performed By: #### L 200.86783 ####[facility] HHWUSKLMJB3612 [place], [place] [address]Cv# [phone] MCV (RBC) [Entitic vol] 88.0 fL Normal 80.0-99.0 [facility] Comment on above: Order Comment: Campu s: MRN/MD Draw Performed By: #### L 200.88348 ####[facility] KCKQVBNRMQ[address] [place], [place] [address]Ph# [phone] MONO ABS 1.60 K/CU MM High 0.1-1.1 [facility] Comment on above: Order Comment: Campu s: MRN/MD Draw Performed By: #### L 200.94005 ####[facility] IPGAAZHZXX[address] [place], [place] [address]Ph# [phone] Monocytes/100 WBC (Bld) 6.5 % Normal 2-10 [facility] Comment on above: Order Comment: Campu s: MRN/MD Draw Performed By: #### L 200.42900 ####[facility] M[address]ADWTMURE[address] [place] [address]Vl# [phone] NEUTROPHIL ABS 20.60 K/CU MM High 2.0-8.3 [facility] Comment on above: Order Comment: Campu s: MRN/MD Draw Performed By: #### L 200.43740 ####[facility] NXHNQAAFHI2898 [place], [place] [address]Lb# [phone] Neutrophils/100 WBC (Bld) 83.5 % High 45-75 [facility] Comment on above: Order Comment: Campu s: MRN/MD Draw Performed By: #### L 200.63483 ####[facility] OIJRLRZROL1770 [place], [place] [address]Yw# [phone] Nucleated RBC/100 WBC (Bld) [Ratio] 0.0 % Normal Less than 1 [facility] Comment on above: Order Comment: Campu s: MRN/MD Draw Performed By: #### L 200.73162 ####[facility] ISFUFHCKHM0716 [place] [address]Ph# [phone] Platelet mean volume (Bld) [Entitic vol] 12.0 fL Normal 9.4-12.4 [facility] Comment on above: Order Comment: Campu s: MRN/MD Draw Performed By: #### L 200.53831 ####[facility] [id number] [place], [place] [address]La# [phone] PLT 198 K/CU MM Normal 150-450 [facility] Comment on above: Order Comment: Campu s: MRN/MD Draw Performed By: #### L 200.86989 ####[facility] LVQYKFQLRC6024 [place], [place] [address]Se# [phone] RBC 3.91 M/CU MM Normal 3.90-5.30 [facility] Comment on above: Order Comment: Campu s: MRN/MD Draw Performed By: #### L 200.46518 ####[facility] ZMKNVJGGNM5954 [place], [place] [address]Yu# [phone] WBC 24.7 K/CUMM High 4.5-11.0 [facility] Comment on above: Order Comment: Campu s: MRN/MD Draw Performed By: #### L 200.13584 ####[facility] OSFOKIUHWV[address] [place], [place] [address]Ph# [phone] GFR ESTon 01-30-2022 IF AMER Greater than 60 Normal [facility] Comment on above: Order Comment: Campu s: M Performed By: #### L 500.13815, L500.18795 ####[facility] [id number] [place], [place] [address]It# [phone] IF non-AFR AMER Greater than 60 Normal [facility] Comment on above: Order Comment: Campu s: M Performed By: #### L 500.07476, L500.05032 ####[facility] ULPEOADDET4943 [place], [place] [address]Cn# [phone] IF AMER Greater than 60 Normal [facility] Comment on above: Order Comment: Campu s: M Performed By: #### L 500.58790, L500.05873 ####[facility] [id number] [place] [address]Wt# [phone] IF non-AFR AMER Greater than 60 Normal [facility] Comment on above: Order Comment: Campu s: M Performed By: #### L 500.50025, L500.44711 ####[facility] [id number] [place], [place] [address]Kc# [phone] GLUCOSE METERon 01-30-2022 Glucose [Mass/Vol] 214 mg/dL High 70-115 [facility] Glucose [Mass/Vol] 219 mg/dL High 70-115 [facility] Glucose [Mass/Vol] 114 mg/dL Normal 70-115 [facility] Glucose [Mass/Vol] 125 mg/dL High 70-115 [facility] Glucose [Mass/Vol] 120 mg/dL High 70-115 [facility] Glucose [Mass/Vol] 86 mg/dL Normal 70-115 [facility] Glucose [Mass/Vol] 134 mg/dL High 70-115 [facility] Glucose [Mass/Vol] 105 mg/dL Normal 70-115 [facility] Glucose [Mass/Vol] 94 mg/dL Normal 70-115 [facility] Glucose [Mass/Vol] 189 mg/dL High 70-115 [facility] Glucose [Mass/Vol] 122 mg/dL High 70-115 [facility] Glucose [Mass/Vol] 188 mg/dL High 70-115 [facility] Glucose [Mass/Vol] 206 mg/dL High 70-115 [facility] MAGNESIUMon 01-30-2022 Magnesium [Mass/Vol] 1.9 mg/dL Normal 1.6-2.6 [facility] Comment on above: Order Comment: Zach s: MRN/ Draw Performed By: #### L 500.90206, L500.04734 ####[facility] MHXNCZWNJT0108 [place], [place] [address]Sd# [phone] PHOSon 01-30-2022 Phosphate [Mass/Vol] 2.20 mg/dL Low 2.5-4.9 [facility] Comment on above: Order Comment: Zach s: MRN/MD Draw Result Comment: Elev ated m-protein (paraprotein) levels in the serum may beexhibited in patients with monoclonal gammopathies, causingfalsely elevated inorganic phosphorus results. Performed By: #### L 500.68084, L500.73919 ####[facility] HFWHEGJRCE0113 [place], [place] [address]Az# [phone] PROG IMSon 01-30-2022 PROG IMS Normal [facility] Progress Note-Hospitalist Normal [facility] PROG.INTENon 01-30-2022 PROG.INTEN Normal [facility] Progress Note-Wax Molder Normal [facility] BETA-HYDRO BUTon 01-29-2022 BETA-HYDRO BUT 3.92 MMOL/L High 0.02-0.27 [facility] Comment on above: Order Comment: Zach richter: Millicent Result Comment: Rudolph ortiz ketone levels will vary depending on several factors(for example, food intake, alcohol intake and conditionssuch as ketoacidosis). Patients should be fasting 12 hoursprior to collection.PATIENT SAMPLES WITH HIGH LEVELS OF M-PROTEIN (I.E.GAMMOPATHY) MAY AFFECT THE ACCURACY OF THIS ASSAY. Performed By: #### L 500.78544 ####[facility] [id number] [place], [place] [address]Fo# [phone] BMPon 01-29-2022 Anion gap [Moles/Vol] 18 mmol/L High 5-[address] [facility] Comment on above: Order Comment: Campu s: M Performed By: #### L 500.81433, L500.09197, L500.30946, L500.05484, L500.32599 ####[facility] TGRGHEGOOT6213 [place], [place] [address]Vs# [phone] Calcium [Mass/Vol] 9.9 mg/dL Normal 8.5-10.5 [facility] Comment on above: Order Comment: Campu s: M Result Comment: NOTE NEW NORMAL RANGE DUE TO REAGENT CHANGE Performed By: #### L 500.31859, L500.75535, L500.90399, L500.55996, L500.08175 ####[facility] LJWKXHOCYK2841 [place], [place] [address]Bk# [phone] Chloride [Moles/Vol] 103 mmol/L Normal 98-107 [facility] Comment on above: Order Comment: Campu s: M Performed By: #### L 500.01127, L500.53586, L500.42244, L500.98647, L500.08025 ####[facility] [id number] [place], [place] [address]Dj# [phone] CO2 [Moles/Vol] 15.0 mmol/L Low 21-32 [facility] Comment on above: Order Comment: Campu s: M Performed By: #### L 500.63245, L500.52842, L500.80467, L500.91003, L500.45022 ####[facility] QWUTUUXMKS9925 [place], [place] [address]Iv# [phone] Creatinine [Mass/Vol] 0.71 mg/dL Normal 0.510-0.950 [facility] Comment on above: Order Comment: Campu s: M Result Comment: Cleopatra ents receiving either N-Acetylcysteine (NAC) orMetamizole prior to venipuncture, may have falsely depressedresults. Performed By: #### L 500.07492, L500.18900, L500.80617, L500.47477, L500.80357 ####[facility] FMPVMZDYEO7165 [place], [place] [address]Hf# [phone] Glucose [Mass/Vol] 412 mg/dL High 70-100 [facility] Comment on above: Order Comment: Campu s: M Result Comment: 70-1 00- Normal Fasting; 100-125 Impaired Fasting; greaterthan 126 on more than one result- Diabetes. ADA guidelines.Results may be falsely elevated after the administration ofSulfapyridine.Results may be falsely depressed after the administration ofSulfasalazine. Performed By: #### L 500.40609, L500.00874, L500.36526, L500.01573, L500.15155 ####[facility] ATKQWCZTMO2591 [place], [place] [address]Zq# [phone] Potassium [Moles/Vol] 4.2 mmol/L Normal 3.5-5.1 [facility] Comment on above: Order Comment: Campu s: M Performed By: #### L 500.55350, L500.11205, L500.91149, L500.06345, L500.01005 ####[facility] OEOUNSHZII0651 [place], [place] [address]Te# [phone] Sodium [Moles/Vol] 136 mmol/L Normal 136-145 [facility] Comment on above: Order Comment: Campu s: M Performed By: #### L 500.51703, L500.64621, L500.32535, L500.35508, L500.48945 ####[facility] LRLZNHBRVU9381 [place], [place] [address]Kf# [phone] Urea nitrogen [Mass/Vol] 23 mg/dL Normal 7-26 [facility] Comment on above: Order Comment: Campu s: M Performed By: #### L 500.81050, L500.93591, L500.14007, L500.81667, L500.30212 ####[facility] [id number] [place], [place] [address]Jq# [phone] Urea nitrogen/Creatinine [Mass ratio] 32 mg/mg High 15-24 [facility] Comment on above: Order Comment: Campu s: M Performed By: #### L 500.57679, L500.34569, L500.55507, L500.69334, L500.35040 ####[facility] CCCFXVMFNR4513 [place] [address]Ph# [phone] CBC W/DIFFon 01-29-2022 BASO ABS 0.00 K/CU MM Normal 0-0.2 [facility] Comment on above: Order Comment: Campu s: M Performed By: #### L 200.68559 ####[facility] MSVESIVWCA[address] [place], [place] [address]Ph# [phone] Basophils/100 WBC (Bld) 0.1 % Normal 0-2 [facility] Comment on above: Order Comment: Campu s: M Performed By: #### L 200.02573 ####[facility] [id number] [place] [id number]# [phone] EOS ABS 0.00 K/CU MM Normal 0-0.5 [facility] Comment on above: Order Comment: Campu s: M Performed By: #### L 200.66095 ####[facility] [id number] [place] [address]Eo# [phone] Eosinophils/100 WBC (Bld) 0.1 % Normal 0-5 [facility] Comment on above: Order Comment: Campu s: M Performed By: #### L 200.83587 ####[facility] [id number] [place], [place] [id number]# [phone] Erythrocyte distribution width (RBC) [Ratio] 13.6 % Normal 11-14.5 [facility] Comment on above: Order Comment: Campu s: M Performed By: #### L 200.09246 ####[facility] [id number] [place] [address]Vj# [phone] Hematocrit (Bld) [Volume fraction] 38.7 % Normal 35.0-47.0 [facility] Comment [facility] above: Order Comment: Campu s: M Performed By: #### L 200.81625 ####[facility] [facility] [id number] [place], [place] [address]Ph# [phone] Hemoglobin (Bld) [Mass/Vol] 12.6 g/dL Normal 11.5-15.5 [facility] Comment on above: Order Comment: Campu s: M Performed By: #### L 200.22116 ####[address] [address]Oi# [phone] IMMATR GRAN ABS 0.10 K/CU MM Normal Less than 2 [facility] Comment on above: Order Comment: Campu s: M Performed By: #### L 200.60039 ####[facility] K[address]PF[address] [place], [place] [address]Ph# [phone] IMMATURE GRAN % 0.8 % Normal Less than 2 [facility] Comment on above: Order Comment: Campu s: M Performed By: #### L 200.46579 ####[facility] FVFKKQWAPI[address] [place], [place] [address]Ph# [phone] LYMPH ABS 0.80 K/CU MM Low 0.9-4.4 [facility] Comment on above: Order Comment: Campu s: M Performed By: #### L 200.85569 ####[facility] YIEVLMDSVH[address] [place], [place] [address]Ph# [phone] Lymphocytes/100 WBC (Bld) 4.4 % Low 20-40 [facility] Comment on above: Order Comment: Campu s: M Performed By: #### L 200.95320 ####[facility] FFTLUTGYBB4668 [place] [id number]# [phone] MCHC (RBC) [Mass/Vol] 32.6 g/dL Normal 32.0-36.[address] [facility] Comment on above: Order Comment: Campu s: M Performed By: #### L 200.95709 ####[facility] O[address] [place] [address]Pb# [phone] MCV (RBC) [Entitic vol] 86.4 fL Normal 80.0-99.0 [facility] Comment on above: Order Comment: Campu s: M Performed By: #### L 200.00642 ####[place] [address]Ph# [phone] MONO ABS 0.30 K/CU MM Normal 0.1-1.1 [facility] Comment on above: Order Comment: Campu s: M Performed By: #### L 200.55855 ####[facility] KFBUMX[address]PB[address] [place], [place] [address]Ph# [phone] Monocytes/100 WBC (Bld) 1.7 % Low 2-10 [facility] Comment on above: Order Comment: Campu s: M Performed By: #### L 200.84068 ####[facility] OJAXGGJINF[address] [place], [place] [address]Ph# [phone] NC/NC NORMOCYTIC Normal [facility] Comment on above: Order Comment: Campu s: M Performed By: #### L 200.82616 ####[facility] REROOLPAIX[address] [place], [place] [address]Ph# [phone] NEUTROPHIL ABS 17.00 K/CU MM High 2.0-8.3 [facility] Comment on above: Order Comment: Campu s: M Performed By: #### L 200.80095 ####[facility] ODHRPCNNUD[address] [place], [place] [address]Ph# [phone] Neutrophils/100 WBC (Bld) 92.9 % High 45-75 [facility] Comment on above: Order Comment: Campu s: M Performed By: #### L 200.19604 ####[facility] BPROWRUIOY3957 [place], [place] [address]Oj# [phone] Nucleated RBC/100 WBC (Bld) [Ratio] 0.0 % Normal Less than 1 [facility] Comment on above: Order Comment: Campu s: M Performed By: #### L 200.56575 ####[facility] DFACIEBPLB[address] [place] [address]Mc# [phone] Platelet mean volume (Bld) [Entitic vol] 13.5 fL High 9.4-12.4 [facility] Comment on above: Order Comment: Campu s: M Performed By: #### L 200.64718 ####[facility] ZLIBZOAVBK3011 [place], [place] [address]Oi# [phone] PLT 174 K/CU MM Normal 150-450 [facility] Comment on above: Order Comment: Campu s: M Performed By: #### L 200.59516 ####[facility] XNNGDKKOWA[address] [place] [address]Zs# [phone] PLT EST ADEQUATE Normal [facility] Comment on above: Order Comment: Campu s: M Performed By: #### L 200.93739 ####[facility] NXOLSPHYIU8831 [place], [place] [address]Wh# [phone] RBC 4.48 M/CU MM Normal 3.90-5.30 [facility] Comment on above: Order Comment: Campu s: M Performed By: #### L 200.82504 ####[facility] TCXPPJWJFE3087 [place], [place] [address]Vu# [phone] WBC 18.3 K/CUMM High 4.5-11.0 [facility] Comment on above: Order Comment: Campu s: M Performed By: #### L 200.56424 ####[facility] FQPLCOOLJV[address] [place] [address]Xb# [phone] CONS.INTENon 01-29-2022 CONS.INTEN Normal [facility] Consultation-Intensivi st Normal [facility] Stacie 01-29-2022 EMERGENCY PHYSICIAN REPORT This is a preliminary report only, as the practitioner review and authentication has not occurred. Normal [facility] ER Normal [facility] GFR ESTon 01-29-2022 IF AMER Greater than 60 [facility] Comment on above: Order Comment: Campu s: M Performed By: #### L 500.91735, L500.43449, L500.11247, L500.79797, L500.97238 ####[facility] FXHLABUKFH7900 [place], [place] [address]Vl# [phone] IF non-AFR AMER Greater than 60 [facility] Comment on above: Order Comment: Campu s: M Performed By: #### L 500.17995, L500.19227, L500.68061, L500.01881, L500.28669 ####[facility] VPRECTQLWZ4548 [place], [place] [address]Yr# [phone] GLUCOSE METERon 01-29-2022 Glucose [Mass/Vol] 135 mg/dL High 70-115 [facility] Glucose [Mass/Vol] 146 mg/dL High 70-115 [facility] Glucose [Mass/Vol] 141 mg/dL High 70-115 [facility] Glucose [Mass/Vol] 117 mg/dL High 70-115 [facility] Glucose [Mass/Vol] 151 mg/dL High 70-115 [facility] Glucose [Mass/Vol] 221 mg/dL High 70-115 [facility] Glucose [Mass/Vol] 286 mg/dL High 70-115 [facility] Glucose [Mass/Vol] 382 mg/dL High 70-115 [facility] Glucose [Mass/Vol] 402 mg/dL High 70-115 [facility] HCGon 01-29-2022 HCG SER RESULT Negative Normal NEGATIVE [facility] Comment on above: Order Comment: Campu s: M Performed By: #### L 500.23476, L500.65776, L500.72548, L500.83597, L500.64789 ####[facility] JHWVOOKAOR6781 [place], [place] [address]Pp# [phone] HP.IMS.ADMon 01-29-2022 Admission-H&P Normal [facility] HP.IMS.ADM Normal [facility] LIPASEon 01-29-2022 Lipase [Catalytic activity/Vol] 22 U/L Normal 12-60 [facility] Comment on above: Order Comment: Campu s: M Result Comment: NOTE NEW NORMAL RANGE DUE TO REAGENT CHANGE Performed By: #### L 500.11894, L500.75607, L500.95384, L500.68230, L500.16270 ####[facility] OWFUILDDVZ5571 [place], [place] [address]Hs# [phone] LIVERon 01-29-2022 Albumin [Mass/Vol] 4.5 g/dL Normal 3.2-5.0 [facility] Comment on above: Order Comment: Campu s: M Performed By: #### L 500.91955, L500.81973, L500.44422, L500.62908, L500.75191 ####[facility] FGPGOGBJXD9339 [place], [place] [address]Yh# [phone] Albumin/Globulin [Mass ratio] 1.7 {ratio} Normal 0.8-2.0 [facility] Comment on above: Order Comment: Campu s: M Performed By: #### L 500.19309, L500.58330, L500.48521, L500.03299, L500.38066 ####[facility] KSOGGVWXFU0511 [place], [place] [address]Ef# [phone] ALK PHOS 104 U/L Normal 45-117 [facility] Comment on above: Order Comment: Campu s: M Performed By: #### L 500.45582, L500.90274, L500.16793, L500.26244, L500.03314 ####[facility] BXHJBPGFAM6456 [place], [place] [address]Xd# [phone] ALT [Catalytic activity/Vol] 28 U/L Normal 13-61 [facility] Comment on above: Order Comment: Zach s: M Result Comment: RESU LTS MAY BE FALSELY DEPRESSED AFTER THE ADMINISTRATION OFSULFASALAZINE AND/OR SULFAPYRIDINE. Performed By: #### L 500.10641, L500.12997, L500.38090, L500.66750, L500.37680 ####[facility] KZWGPEZVFP3153 [place], [place] [address]Fh# [phone] AST [Catalytic activity/Vol] 24 U/L Normal 8-34 [facility] Comment on above: Order Comment: Zach s: M Result Comment: RESU LTS MAY BE FALSELY DEPRESSED AFTER THE ADMINISTRATION OFSULFASALAZINE AND/OR SULFAPYRIDINE. Performed By: #### L 500.20452, L500.49179, L500.50771, L500.90502, L500.19351 ####[facility] ICFUWPEBNH3160 [place], [place] [address]Ot# [phone] BILI DIRECT 0.3 MG/DL Normal 0.00-0.36 [facility] Comment on above: Order Comment: Zach s: Millicent Result Comment: NOTE NEW NORMAL RANGE DUE TO REAGENT CHANGE Performed By: #### L 500.01213, L500.53017, L500.93659, L500.27033, L500.55486 ####[facility] ZNSPDTFXIU8159 [place], [place] [address]Yw# [phone] BILI TOTAL 0.90 MG/DL Normal 0.2-1.0 [facility] Comment on above: Order Comment: Zach richter: Millicent Performed By: #### L 500.62112, L500.80325, L500.67705, L500.44629, L500.18390 ####[facility] CBTFDAQGEV5302 [place], [place] [address]Yr# [phone] Globulin (S) [Mass/Vol] 2.7 g/dL Normal 2.2-4.2 [facility] Comment on above: Order Comment: Campu s: M Performed By: #### L 500.81852, L500.48068, L500.81029, L500.66059, L500.52890 ####[facility] SFATUVCUDJ6193 [place], [place] [address]Uk# [phone] Protein [Mass/Vol] 7.2 g/dL Normal 6.0-8.5 [facility] Comment on above: Order Comment: Campu s: M Performed By: #### L 500.08366, L500.78611, L500.65435, L500.31638, L500.53966 ####[facility] ABBRPVKRDC4952 [place], [place] [address]Rz# [phone] MRSA PCRon 01-29-2022 MRSA PCR Negative Normal NEGATIVE [facility] Comment on above: Order Comment: Zach s: M Result Comment: PLEA SE NOTE: TESTING DONE BY PCR TECHNOLOGY.The SA Nasal complete MRSA assay on the [employer] GeneXperthas not been validated for use on patients under 21 years ofage. All patients under 21 years of age, run on theBitArmor SystemsXpert will be confirmed by a Blood [place] plate, followedby an SHINE, to confirm MRSA. Performed By: #### L 770.07250 ####[facility] HICMVAQRTR8427 [place], [place] [address]Hr# [phone] SA PCR Positive High NEGATIVE [facility] Comment on above: Order Comment: Zach s: M Result Comment: PLEA SE NOTE: TESTING DONE BY PCR TECHNOLOGY. Performed By: #### L 770.37498 ####[facility] VYTRXNSBPR[address] [place] [address]Ry# [phone] PORTABLE CHESTon 01-29-2022 PORTABLE CHEST Normal [facility] [id number] 01-29-2022 SARS-CoV-2 (COVID-19) RNA DANIEL+probe Ql (Unsp spec) Negative Invalid Interpretation Code Negative [facility] Comment on above: Order Comment: Zach [...] performed by PCR. Performed By: #### L 770.14977 ####[facility] NPAWNKDHWG9383 [place], [place] [address]Wa# [phone] UA COMPLETEon 01-29-2022 Color (U) Straw Normal [facility] Comment on above: Order Comment: Campu s: M Performed By: #### L 600.08401 ####[address] [address]Jh# [phone] Glucose (U) [Mass/Vol] 500 mg/dL Normal NORMAL [facility] Comment on above: Order Comment: Campu s: M Performed By: #### L 600.55165 ####[facility] [address]MYPKVU[address] [place] [address]Rp# [phone] UA APPEARANCE Clear Normal CLEAR [facility] Comment on above: Order Comment: Campu s: M Performed By: #### L 600.68655 ####[facility] VJERIUZEFT[address] [place] [address]Wf# [phone] UA BILIRUBIN Negative Normal NEGATIVE [facility] Comment on above: Order Comment: Campu s: M Performed By: #### L 600.66002 ####[facility] TZJJJRRYCJ[address] [place] [address]Iq# [phone] UA BLOOD Negative Normal NEGATIVE [facility] Comment on above: Order Comment: Campu s: M Performed By: #### L 600.98798 ####[facility] NM[address]CXYBT[address] [place] [address]Gh# [phone] UA KETONE 80 Normal NEGATIVE [facility] Comment on above: Order Comment: Campu s: M Performed By: #### L 600.33119 ####[facility] EIEEZBTHZT1712 [place], [place] [address]On# [phone] UA LK ESTERASE Negative Normal NEGATIVE [facility] Comment on above: Order Comment: Campu s: M Performed By: #### L 600.61811 ####[facility] ITUWYNFUYO6122 [place], [place] [address]Xj# [phone] UA NITRITE Negative Normal NEGATIVE [facility] Comment on above: Order Comment: Campu s: M Performed By: #### L 600.08040 ####[facility] U[address]ZORVPXGZ[address] [place] [address]Kj# [phone] UA PH 6.0 Normal 5-6 [facility] Comment on above: Order Comment: Campu s: M Performed By: #### L 600.98763 ####[facility] WQCLSDARIT[address] [place] [address]Wq# [phone] UA PROTEIN Negative Normal NEGATIVE [facility] Comment on above: Order Comment: Campu s: M Performed By: #### L 600.65635 ####[facility] WNOCPVKUEL[address] [place] [address]Jl# [phone] UA SPEC GRAV 1.028 Normal 1.005-1.030 [facility] Comment on above: Order Comment: Campu s: M Performed By: #### L 600.37819 ####[facility] XYTANOLFDJ[address] [place] [address]Dh# [phone] UA UROBILINOGEN Negative Normal NORMAL [facility] Comment on above: Order Comment: Campu s: M Performed By: #### L 600.84426 ####[facility] RGNSXLNASN[address] [place] [address]Fr# [phone] VBG PHon 01-29-2022 VBG PH 7.36 MMHG Normal 7.31-7.41 [facility] Comment on above: Order Comment: Campu s: M Performed By: #### L 100.57011 ####[facility] XIXWLAGHKE[address] [place] [address]Dz# [phone] BMPon 12-30-2021 Anion gap [Moles/Vol] 4 mmol/L Low 5-[address] [facility] Comment on above: Order Comment: Campu s: M Performed By: #### L 500.30307, L500.38101 ####[facility] TLAERAUBTG2615 [place], [place] [address]Bd# [phone] Calcium [Mass/Vol] 8.8 mg/dL Normal 8.5-10.5 [facility] Comment on above: Order Comment: Campu s: M Result Comment: NOTE NEW NORMAL RANGE DUE TO REAGENT CHANGE Performed By: #### L 500.13408, L500.27902 ####[facility] XKDEEIOIQU6143 [place], [place] [address]Nz# [phone] Chloride [Moles/Vol] 109 mmol/L High 98-107 [facility] Comment on above: Order Comment: Campu s: M Performed By: #### L 500.56983, L500.30497 ####[facility] [address] [place] [address]Fr# [phone] CO2 [Moles/Vol] 28.0 mmol/L Normal 21-32 [facility] Comment on above: Order Comment: Campu s: M Performed By: #### L 500.11047, L500.16431 ####[facility] RIVITAECJV4173 [place], [place] [address]Yv# [phone] Creatinine [Mass/Vol] 0.64 mg/dL Normal 0.510-0.950 [facility] Comment on above: Order Comment: Campu s: M Result Comment: Cleopatra ents receiving either N-Acetylcysteine (NAC) orMetamizole prior to venipuncture, may have falsely depressedresults. Performed By: #### L 500.45811, L500.07359 ####[facility] YEVLORGCRB7478 [place], [place] [address]Lb# [phone] Glucose [Mass/Vol] 160 mg/dL High 70-100 [facility] Comment on above: Order Comment: Campu s: M Result Comment: Delt a check [id number]- Normal Fasting; 100-125 Impaired Fasting; greaterthan 126 on more than one result- Diabetes. ADA guidelines.Results may be falsely elevated after the administration ofSulfapyridine.Results may be falsely depressed after the administration ofSulfasalazine. Performed By: #### L 500.00301, L500.99587 ####[facility] XLNBYAWEKU2815 [place], [place] [address]Jo# [phone] Potassium [Moles/Vol] 3.8 mmol/L Normal 3.5-5.1 [facility] Comment on above: Order Comment: Campu s: M Performed By: #### L 500.11058, L500.42130 ####[facility] GIHAPZIKTW[address] [place] [address]Ku# [phone] Sodium [Moles/Vol] 141 mmol/L Normal 136-145 [facility] Comment on above: Order Comment: Campu s: M Performed By: #### L 500.34438, L500.67345 ####[facility] QYHAKPEDCK[address] [place] [address]Dy# [phone] Urea nitrogen [Mass/Vol] 9 mg/dL Normal 7-26 [facility] Comment on above: Order Comment: Campu s: M Performed By: #### L 500.92350, L500.52601 ####[facility] EAGGDEQGNV[address] [place] [address]Te# [phone] Urea nitrogen/Creatinine [Mass ratio] 14 mg/mg Low 15-24 [facility] Comment on above: Order Comment: Campu s: M Performed By: #### L 500.99219, L500.58844 ####[facility] V[address]NZMXUKO[address] [place] [address]On# [phone] DISCH.SUMon 12-30-2021 DISCH.SUM Normal [facility] GFR ESTon 12-30-2021 IF AMER Greater than [address] [facility] Comment on above: Order Comment: Campu s: M Performed By: #### L 500.72708, L500.57478 ####[facility] KFGXDEYCEP2546 [place], [place] [address]Al# [phone] IF non-AFR AMER Greater than [address] [facility] Comment on above: Order Comment: Campu s: M Performed By: #### L 500.68116, L500.41063 ####[facility] VAZJPJSSON2197 [place], [place] [address]Aj# [phone] GLUCOSE METERon 12-30-2021 Glucose [Mass/Vol] 141 mg/dL High 70-115 [facility] Glucose [Mass/Vol] 184 mg/dL High 70-115 [facility] Glucose [Mass/Vol] 269 mg/dL High 70-115 [facility] HGB A1C GLYCOHBon 12-30-2021 HbA1c (Bld) [Mass fraction] 6.2 % High 4.3-6.0 [facility] Comment on above: Order Comment: Campu s: M Performed By: #### L 550.77956 ####[facility] FCFRLTIZCJ8239 [place], [place] [address]Qc# [phone] BMPon 12-29-2021 Anion gap [Moles/Vol] 7 mmol/L Normal 5-16 [facility] Comment on above: Order Comment: Campu s: M Performed By: #### L 500.84968, L500.05297 ####[facility] FFFDYONQET5295 [place], [place] [address]Ya# [phone] Calcium [Mass/Vol] 7.1 mg/dL Low 8.5-10.5 [facility] Comment on above: Order Comment: Campu s: M Result Comment: NOTE NEW NORMAL RANGE DUE TO REAGENT CHANGE Performed By: #### L 500.44495, L500.76057 ####[facility] ZQCOVGKBSR3890 [place], [place] [address]Fa# [phone] Chloride [Moles/Vol] 114 mmol/L High 98-107 [facility] Comment on above: Order Comment: Campu s: M Performed By: #### L 500.79105, L500.01821 ####[facility] GLUZPSHHUQ0850 [place], [place] [address]Tq# [phone] CO2 [Moles/Vol] 22.0 mmol/L Normal 21-32 [facility] Comment on above: Order Comment: Benjiu s: M Performed By: #### L 500.12164, L500.95666 ####[facility] MWXXJMGPWQ1491 [place], [place] [address]Xg# [phone] Creatinine [Mass/Vol] 0.52 mg/dL Normal 0.510-0.950 [facility] Comment on above: Order Comment: Benjiu s: M Result Comment: Cleopatra ents receiving either N-Acetylcysteine (NAC) orMetamizole prior to venipuncture, may have falsely depressedresults. Performed By: #### L 500.42151, L5.11315 ####[facility] WHFSWJAHAL2394 [place], [place] [address]Gg# [phone] Glucose [Mass/Vol] 94 mg/dL Normal 70-100 [facility] Comment on above: Order Comment: Benjiu s: M Result Comment: 70-1 00- Normal Fasting; 100-125 Impaired Fasting; greaterthan 126 on more than one result- Diabetes. ADA guidelines.Results may be falsely elevated after the administration ofSulfapyridine.Results may be falsely depressed after the administration ofSulfasalazine. Performed By: #### L 500.61291, L500.27801 ####[facility] VCKBWFYYOT8800 [place], [place] [address]Uf# [phone] Potassium [Moles/Vol] 3.2 mmol/L Low 3.5-5.[address] [facility] Comment on above: Order Comment: Benjiu s: M Result Comment: Slig ht Hemolysis, Result may be affected. Performed By: #### L 500.59904, L500.51263 ####[facility] DVJDXLPOPR3626 [place], [place] [address]Qw# [phone] Sodium [Moles/Vol] 143 mmol/L Normal 136-145 [facility] Comment on above: Order Comment: Campu s: M Result Comment: Delt a check reviewed Performed By: #### L 500.61507, L500.96789 ####[facility] [address]MSWQTYKR[address] [place] [address]Ne# [phone] Urea nitrogen [Mass/Vol] 6 mg/dL Low 7-26 [facility] Comment on above: Order Comment: Campu s: M Performed By: #### L 500.64374, L500.86113 ####[facility] NQOUX[address]IGA[address] [place] [address]Ch# [phone] Urea nitrogen/Creatinine [Mass ratio] 11 mg/mg Low 15-24 [facility] Comment on above: Order Comment: Campu s: M Performed By: #### L 500.58059, L500.65034 ####[address] [address]Sf# [phone] CBC W/DIFFon 12-29-2021 BASO ABS 0.00 K/CU MM Normal 0-0.2 [facility] Comment on above: Order Comment: Campu s: M Performed By: #### L 200.88947 ####[facility] GIUGYNERFR[address] [place] [address]Uc# [phone] Basophils/100 WBC (Bld) 0.3 % Normal 0-2 [facility] Comment on above: Order Comment: Campu s: M Performed By: #### L 200.78083 ####[facility] PBTIUKMFNY[address] [place] [address]Ga# [phone] EOS ABS 0.00 K/CU MM Normal 0-0.5 [facility] Comment on above: Order Comment: Campu s: M Performed By: #### L 200.99090 ####[facility] TCGGSSPAYN[address] [place] [address]Kt# [phone] Eosinophils/100 WBC (Bld) 0.2 % Normal 0-5 [facility] Comment on above: Order Comment: Campu s: M Performed By: #### L 200.71391 ####[facility] HPXGBTDXXP6898 [place], [place] [address]Wf# [phone] Erythrocyte distribution width (RBC) [Ratio] 13.5 % Normal 11-14.5 [facility] Comment on above: Order Comment: Campu s: M Performed By: #### L 200.73328 ####[facility] [id number] [place], [place] [id number]# [phone] Hematocrit (Bld) [Volume fraction] 34.3 % Low 35.0-47.0 [facility] Comment on above: Order Comment: Campu s: M Performed By: #### L 200.86183 ####[address] [address]Fz# [phone] Hemoglobin (Bld) [Mass/Vol] 11.5 g/dL Normal 11.5-15.5 [facility] Comment on above: Order Comment: Campu s: M Performed By: #### L 200.80388 ####[place] [id number]# [phone] IMMATR GRAN ABS 0.20 K/CU MM Normal Less than 2 [facility] Comment on above: Order Comment: Campu s: M Performed By: #### L 200.13086 ####[facility] [id number] [place], [place] [id number]# [phone] IMMATURE GRAN % 1.8 % Normal Less than 2 [facility] Comment on above: Order Comment: Campu s: M Performed By: #### L 200.08869 ####[facility] [id number] [place] [address]Gx# [phone] LYMPH ABS 3.60 K/CU MM Normal 0.9-4.4 [facility] Comment on above: Order Comment: Campu s: M Performed By: #### L 200.60677 ####[facility] [id number] [place], [place] [id number]# [phone] Lymphocytes/100 WBC (Bld) 29.4 % Normal 20-40 [facility] Comment on above: Order Comment: Campu s: M Performed By: #### L 200.08457 ####[facility] [id number] [place], [place] [address]Yl# [phone] MCHC (RBC) [Mass/Vol] 33.5 g/dL Normal 32.0-36.[address] [facility] [place] Comment on above: Order Comment: Campu s: M Performed By: #### L 200.32716 ####[facility] [id number] [place] [address]Ui# [phone] MCV (RBC) [Entitic vol] 86.2 fL Normal 80.0-99.0 [facility] Comment on above: Order Comment: Campu s: M Performed By: #### L 200.14232 ####[address] [address]Ic# [phone] MONO ABS 0.80 K/CU MM Normal 0.1-1.1 [facility] Comment on above: Order Comment: Campu s: M Performed By: #### L 200.13588 ####[facility] [id number] [place] [address]Er# [phone] Monocytes/100 WBC (Bld) 6.7 % Normal 2-10 [facility] Comment on above: Order Comment: Campu s: M Performed By: #### L 200.18021 ####[facility] [id number] [place] [address]Ib# [phone] NEUTROPHIL ABS 7.60 K/CU MM Normal 2.0-8.3 [facility] Comment on above: Order Comment: Campu s: M Performed By: #### L 200.00359 ####[facility] [id number] [place] [address]Hm# [phone] Neutrophils/100 WBC (Bld) 61.6 % Normal 45-75 [facility] Comment on above: Order Comment: Campu s: M Performed By: #### L 200.95147 ####[facility] [id number] [place], [place] [address]Xe# [phone] Nucleated RBC/100 WBC (Bld) [Ratio] 0.0 % Normal Less than 1 [facility] Comment on above: Order Comment: Campu s: M Performed By: #### L 200.25274 ####[facility] [id number] [place], [place] [address]Mp# [phone] Platelet mean volume (Bld) [Entitic vol] 11.7 fL Normal 9.4-12.4 [facility] Comment on above: Order Comment: Campu s: M Performed By: #### L 200.04585 ####[facility] [id number] [place], [place] [address]Ah# [phone] PLT 167 K/CU MM Normal 150-450 [facility] Comment on above: Order Comment: Campu s: M Performed By: #### L 200.43219 ####[facility] [id number] [place], [place] [address]Ut# [phone] RBC 3.98 M/CU MM Normal 3.90-5.30 [facility] Comment on above: Order Comment: Campu s: M Performed By: #### L 200.24024 ####[facility] [id number] [place], [place] [address]Oe# [phone] WBC 12.4 K/CUMM High 4.5-11.0 [facility] Comment on above: Order Comment: Campu s: M Performed By: #### L 200.96929 ####[facility] [id number] [place] [address]Il# [phone] GFR ESTon 12-29-2021 IF AMER Greater than [address] [facility] Comment on above: Order Comment: Campu s: M Performed By: #### L 500.17376, L500.52175 ####[facility] [id number] [place] [id number]# [phone] IF non-AFR AMER Greater than [address] [facility] Comment on above: Order Comment: Zach s: M Performed By: #### L 500.32336, L500.63477 ####[facility] [id number] [place], [place] [address]Qu# [phone] GLUCOSE METERon 12-29-2021 Glucose [Mass/Vol] 266 mg/dL High 70-115 [facility] Glucose [Mass/Vol] 109 mg/dL Normal 70-115 [facility] Glucose [Mass/Vol] 67 mg/dL Low 70-115 [facility] Glucose [Mass/Vol] 49 mg/dL Critically low 70-115 [facility] [place] Glucose [Mass/Vol] 63 mg/dL Low 70-115 [facility] Glucose [Mass/Vol] 98 mg/dL Normal 70-115 [facility] PR[facility] IMSon 12-29-2021 PROG IMS Normal [facility] Progress Note-Hospitalist Normal [facility] ADM.INTERVon 12-28-2021 ADM.INTERV Normal [facility] Admission Interval Note Normal [facility] BETA-HYDRO BUTon 12-28-2021 BETA-HYDRO BUT 4.79 MMOL/L High 0.02-0.27 [facility] Comment on above: Order Comment: Zach s: M Result Comment: Bloo d ketone levels will vary depending on several factors(for example, food intake, alcohol intake and conditionssuch as ketoacidosis). Patients should be fasting 12 hoursprior to collection.PATIENT SAMPLES WITH HIGH LEVELS OF M-PROTEIN (I.E.GAMMOPATHY) MAY AFFECT THE ACCURACY OF THIS ASSAY. Performed By: #### L 500.15680, L500.05541, L500.65273 ####[facility] [id number] [place], [place] [address]Xv# [phone] BMPon 12-28-2021 Anion gap [Moles/Vol] 13 mmol/L Normal 5-16 [facility] Comment on above: Order Comment: Zach s: M Performed By: #### L 500.11006, L500.19905, L500.06123 ####[facility] [id number] [place], [place] [address]Pf# [phone] Calcium [Mass/Vol] 8.9 mg/dL Normal 8.5-10.5 [facility] Comment on above: Order Comment: Campu s: M Result Comment: NOTE NEW NORMAL RANGE DUE TO REAGENT CHANGE Performed By: #### L 500.72027, L500.41019, L500.56927 ####[facility] [id number] [place], [place] [address]Ql# [phone] Chloride [Moles/Vol] 105 mmol/L Normal 98-107 [facility] Comment on above: Order Comment: Campu s: M Performed By: #### L 500.12506, L500.64684, L500.34299 ####[facility] [id number] [place], [place] [address]Ur# [phone] CO2 [Moles/Vol] 18.0 mmol/L Low 21-32 [facility] Comment on above: Order Comment: Campu s: M Performed By: #### L 500.93626, L500.24721, L500.09068 ####[facility] [id number] [place], [place] [address]Hl# [phone] Creatinine [Mass/Vol] 0.61 mg/dL Normal 0.510-0.950 [facility] Comment on above: Order Comment: Campu s: M Result Comment: Cleopatra ents receiving either N-Acetylcysteine (NAC) orMetamizole prior to venipuncture, may have falsely depressedresults. Performed By: #### L 500.14793, L500.72962, L500.16416 ####[facility] [id number] [place], [place] [address]Qa# [phone] Glucose [Mass/Vol] 80 mg/dL Normal 70-100 [facility] Comment on above: Order Comment: Campu s: M Result Comment: 70-1 00- Normal Fasting; 100-125 Impaired Fasting; greaterthan 126 on more than one result- Diabetes. ADA guidelines.Results may be falsely elevated after the administration ofSulfapyridine.Results may be falsely depressed after the administration ofSulfasalazine. Performed By: #### L 500.40136, L500.29713, L500.65832 ####[facility] [id number] [place], [place] [address]Vb# [phone] Potassium [Moles/Vol] 2.9 mmol/L Critically low 3.5-5.1 [facility] Comment on above: Order Comment: Campu s: M Result Comment: Slig ht Hemolysis, Result may be affected.Critical Result(s)Called at: 19:38:48 on 12/28/2021 by lls. Called to vinh back by: DR MORLEY Performed By: #### L 500.39153, L500.93678, L500.62277 ####[facility] [id number] [place], [place] [address]Ku# [phone] Sodium [Moles/Vol] 136 mmol/L Normal 136-145 [facility] Comment on above: Order Comment: Campu s: M Performed By: #### L 500.91717, L500.46833, L500.95777 ####[facility] [id number] [place], [place] [address]Es# [phone] Urea nitrogen [Mass/Vol] 11 mg/dL Normal 7-26 [facility] Comment on above: Order Comment: Campu s: M Performed By: #### L 500.13848, L500.11476, L500.29527 ####[facility] [id number] [place], [place] [address]Jg# [phone] Urea nitrogen/Creatinine [Mass ratio] 18 mg/mg Normal 15-24 [facility] Comment on above: Order Comment: Campu s: M Performed By: #### L 500.32489, L500.84415, L500.44505 ####[facility] [id number] [place], [place] [address]Ll# [phone] Stacie 12-28-2021 EMERGENCY PHYSICIAN REPORT This is a preliminary report only, as the practitioner review and authentication has not occurred. Normal [facility] ER Normal [facility] GFR ESTon 12-28-2021 IF AMER Greater than 60 [facility] Comment on above: Order Comment: Campu s: M Performed By: #### L 500.07390, L500.27317, L500.65264 ####[facility] [id number] [place], [place] [address]Dv# [phone] IF non-AFR AMER Greater than 60 [facility] Comment on above: Order Comment: Campu s: M Performed By: #### L 500.68417, L500.21869, L500.53470 ####[facility] [id number] [place], [place] [address]Xi# [phone] VBG PANELon 12-28-2021 BASE EXCESS -4.6 MMOL/L Low 0-2 [facility] Comment on above: Order Comment: Campu s: M Performed By: #### L 100.27533 ####[facility] [id number] [place], [place] [address]Qe# [phone] Body temperature 98.6 [degF] [facility] Comment on above: Order Comment: Campu s: M Performed By: #### L 100.71096 ####[facility] [id number] [place], [place] [address]Da# [phone] EQUIPMENT UNKNOWN Normal [facility] Comment on above: Order Comment: Campu s: M Performed By: #### L 100.31211 ####[facility] VIMYKZNRWC4072 [place], [place] [address]Vg# [phone] HCO3 (Bld) [Moles/Vol] 17.6 mmol/L Low 22-26 M [facility] Comment on above: Order Comment: Campu s: M Performed By: #### L 100.20928 ####[facility] EKFSMANWOU9282 [place], [place] [address]Be# [phone] Hemoglobin (Bld) [Mass/Vol] 13.9 g/dL Low 16.0-22.0 [facility] Comment on above: Order Comment: Benjiu s: M Performed By: #### L 100.92937 ####[facility] [id number] [place], [place] [address]Cx# [phone] SAMPLE SITE UNKNOWN Normal [facility] Comment on above: Order Comment: Benjiu s: M Performed By: #### L 100.75884 ####[facility] [id number] [place] [address]Ag# [phone] SAMPLE TYPE VENOUS Normal [facility] Comment on above: Order Comment: Benjiu s: M Performed By: #### L 100.51183 ####[facility] [id number] [place] [address]Eb# [phone] VBG CARBOXYHGB 1.5 % Normal 0-10 [facility] Comment on above: Order Comment: Benjiu s: M Performed By: #### L 100.11151 ####[facility] [id number] [place], [place] [address]Kq# [phone] VBG METHGB 0.3 % Low 0.4-1.5 [facility] Comment on above: Order Comment: Benjiu s: M Performed By: #### L 100.73340 ####[facility] TTSXMODJNG[address] [place] [address]Su# [phone] VBG O2 CAPACITY 19.0 VOL% Normal [facility] Comment on above: Order Comment: Benjiu s: M Performed By: #### L 100.25776 ####[facility] FQNRFSMMSR8693 [place], [place] [address]Ym# [phone] VBG O2 HG SATUR 88.4 % High 40-70 [facility] Comment on above: Order Comment: Benjiu s: M Performed By: #### L 100.28485 ####[facility] [id number] [place] [address]Wz# [phone] VBG PCO2 25.6 MMHG Critically low 40-50 [facility] Comment on above: Order Comment: Campu s: M Result Comment: VALU E IS OUTSIDE OF THE VERIFIED RANGES OF THIS ANALYZER.ADAM CHOE Elver. PCO2 25.6 MMHG Performed By: #### L 100.48951 ####[facility] [id number] [place], [place] [address]Af# [phone] VBG PH 7.46 MMHG High 7.31-7.41 [facility] Comment on above: Order Comment: Campu s: M Performed By: #### L 100.85941 ####[facility] [id number] [place], [place] [address]Zd# [phone] VBG PO2 54.3 MMHG High 35-45 [facility] Comment on above: Order Comment: Campu s: M Performed By: #### L 100.68309 ####[facility] [id number] [place], [place] [address]Ty# [phone] BETA-HYDRO BUTon 12-27-2021 BETA-HYDRO BUT 3.29 MMOL/L High 0.02-0.27 [facility] Comment on above: Order Comment: Campu s: M Result Comment: Bloo d ketone levels will vary depending on several factors(for example, food intake, alcohol intake and conditionssuch as ketoacidosis). Patients should be fasting 12 hoursprior to collection.PATIENT SAMPLES WITH HIGH LEVELS OF M-PROTEIN (I.E.GAMMOPATHY) MAY AFFECT THE ACCURACY OF THIS ASSAY. Performed By: #### L 500.16316 ####[facility] [id number] [place], [place] [address]Ae# [phone] BMPon 12-27-2021 Anion gap [Moles/Vol] 15 mmol/L Normal 5-16 [facility] Comment on above: Order Comment: Campu s: M Performed By: #### L 500.71664, L500.00859, L500.28331 ####[facility] VSKDJLZDGH9045 [place], [place] [address]Tf# [phone] Calcium [Mass/Vol] 9.2 mg/dL Normal 8.5-10.5 [facility] Comment on above: Order Comment: Campu s: M Result Comment: NOTE NEW NORMAL RANGE DUE TO REAGENT CHANGE Performed By: #### L 500.86342, L500.72060, L500.04684 ####[facility] [id number] [place], [place] [address]Wp# [phone] Chloride [Moles/Vol] 107 mmol/L Normal 98-107 [facility] Comment on above: Order Comment: Campu s: M Performed By: #### L 500.31465, L500.48335, L500.99224 ####[facility] STBDVPNSVD5219 [place], [place] [address]Ub# [phone] CO2 [Moles/Vol] 18.0 mmol/L Low 21-32 [facility] Comment on above: Order Comment: Campu s: M Performed By: #### L 500.51391, L500.40842, L500.35958 ####[facility] JPAJJSAPHL9082 [place], [place] [address]Eg# [phone] Creatinine [Mass/Vol] 0.67 mg/dL Normal 0.510-0.950 [facility] Comment on above: Order Comment: Campu s: M Result Comment: Cleopatra ents receiving either N-Acetylcysteine (NAC) orMetamizole prior to venipuncture, may have falsely depressedresults. Performed By: #### L 500.84265, L500.11235, L500.15212 ####[facility] [id number] [place], [place] [address]Zz# [phone] Glucose [Mass/Vol] 118 mg/dL High 70-100 [facility] Comment on above: Order Comment: Campu s: M Result Comment: 70-1 00- Normal Fasting; 100-125 Impaired Fasting; greaterthan 126 on more than one result- Diabetes. ADA guidelines.Results may be falsely elevated after the administration ofSulfapyridine.Results may be falsely depressed after the administration ofSulfasalazine. Performed By: #### L 500.05534, L500.50785, L500.95184 ####[facility] [id number] [place], [place] [address]Dd# [phone] Potassium [Moles/Vol] 3.3 mmol/L Low 3.5-5.[address] [facility] Comment on above: Order Comment: Campu s: M Performed By: #### L 500.94235, L500.40060, L500.63944 ####[facility] [id number] [place], [place] [address]Ho# [phone] Sodium [Moles/Vol] 140 mmol/L Normal 136-145 [facility] Comment on above: Order Comment: Campu s: M Performed By: #### L 500.69543, L500.81493, L500.95839 ####[facility] ZZGZFMAEZV8703 [place], [place] [address]Rn# [phone] Urea nitrogen [Mass/Vol] 14 mg/dL Normal 7-26 [facility] Comment on above: Order Comment: Campu s: M Performed By: #### L 500.70552, L500.72935, L500.72944 ####[facility] UNNGOAYFRJ2073 [place], [place] [address]Oq# [phone] Urea nitrogen/Creatinine [Mass ratio] 21 mg/mg Normal 15-24 [facility] Comment on above: Order Comment: Campu s: M Performed By: #### L 500.81537, L500.22895, L500.27072 ####[facility] ZZEOQLAJJO7108 [place], [place] [address]Sn# [phone] CBC W/DIFFon 12-27-2021 BASO ABS 0.00 K/CU MM Normal 0-0.2 [facility] Comment on above: Order Comment: Campu s: M Performed By: #### L 200.95338 ####[facility] [id number] [place], [place] [address]Lt# [phone] Basophils/100 WBC (Bld) 0.3 % Normal 0-2 [facility] Comment on above: Order Comment: Campu s: M Performed By: #### L 200.83220 ####[facility] RBAJUEXVOZ2814 [place], [place] [address]Tu# [phone] EOS ABS 0.00 K/CU MM Normal 0-0.5 [facility] Comment on above: Order Comment: Campu s: M Performed By: #### L 200.90983 ####[facility] [id number] [place], [place] [address]Ph# [phone] Eosinophils/100 WBC (Bld) 0.0 % Normal 0-5 [facility] Comment on above: Order Comment: Campu s: M Performed By: #### L 200.22541 ####[place] [address]Ph# [phone] Erythrocyte distribution width (RBC) [Ratio] 13.8 % Normal 11-14.5 [facility] Comment on above: Order Comment: Campu s: M Performed By: #### L 200.57468 ####[facility] [id number] [place], [place] [address]Ph# [phone] Hematocrit (Bld) [Volume fraction] 36.4 % Normal 35.0-47.0 [facility] Comment on above: Order Comment: Campu s: M Performed By: #### L 200.97295 ####[facility] MVAMEKBXEU65[address] [place], [place] [address]Ph# [phone] Hemoglobin (Bld) [Mass/Vol] 12.1 g/dL Normal 11.5-15.5 [facility] Comment on above: Order Comment: Campu s: M Performed By: #### L 200.37245 ####[facility] ITFEJNVPAM5697 [place], [place] [address]Ln# [phone] IMMATR GRAN ABS 0.30 K/CU MM Normal Less than 2 [facility] Comment on above: Order Comment: Campu s: M Performed By: #### L 200.57367 ####[place] [address] [place], [place] [address]Hx# [phone] IMMATURE GRAN % 1.8 % Normal Less than 2 [facility] Comment on above: Order Comment: Campu s: M Performed By: #### L 200.60811 ####[facility] OITCSPLWRI[address] [place] [address]Cl# [phone] LYMPH ABS 1.30 K/CU MM Normal 0.9-4.4 [facility] Comment on above: Order Comment: Campu s: M Performed By: #### L 200.63799 ####[place] [address]Ph# [phone] Lymphocytes/100 WBC (Bld) 9.4 % Low 20-40 [facility] Comment on above: Order Comment: Campu s: M Performed By: #### L 200.92808 ####[place] [address]Ph# [phone] MCHC (RBC) [Mass/Vol] 33.2 g/dL Normal 32.0-36.0 [facility] Comment on above: Order Comment: Campu s: M Performed By: #### L 200.82876 ####[facility] USDDPSJVEO[address] [place] [address]Tz# [phone] MCV (RBC) [Entitic vol] 85.4 fL Normal 80.0-99.0 [facility] Comment on above: Order Comment: Campu s: M Performed By: #### L 200.87635 ####[facility] [id number] [place] [address]Tk# [phone] MONO ABS 0.60 K/CU MM Normal 0.1-1.1 [facility] Comment on above: Order Comment: Campu s: M Performed By: #### L 200.34955 ####[facility] HDXLMLOWKG[address] [place] [address]Qf# [phone] Monocytes/100 WBC (Bld) 4.1 % Normal 2-10 [facility] Comment on above: Order Comment: Campu s: M Performed By: #### L 200.24835 ####[facility] GYHFAPVZTE0792 [place], [place] [address]Ru# [phone] NEUTROPHIL ABS 11.70 K/CU MM High 2.0-8.3 [facility] Comment on above: Order Comment: Campu s: M Performed By: #### L 200.02848 ####[facility] GJJSYXDRWG[address] [place] [address]Yp# [phone] Neutrophils/100 WBC (Bld) 84.4 % High 45-75 [facility] Comment on above: Order Comment: Campu s: M Performed By: #### L 200.25865 ####[facility] [id number] [place], [place] [address]Vr# [phone] Nucleated RBC/100 WBC (Bld) [Ratio] 0.0 % Normal Less than 1 [facility] Comment on above: Order Comment: Campu s: M Performed By: #### L 200.23153 ####[facility] TMBSJQQFGS8852 [place], [place] [address]Wr# [phone] Platelet mean volume (Bld) [Entitic vol] 12.1 fL Normal 9.4-12.4 [facility] Comment on above: Order Comment: Campu s: M Performed By: #### L 200.08061 ####[facility] [id number] [place] [address]It# [phone] PLT 184 K/CU MM Normal 150-450 [facility] Comment on above: Order Comment: Campu s: M Performed By: #### L 200.50154 ####[facility] [id number] [place], [place] [address]Qd# [phone] RBC 4.26 M/CU MM Normal 3.90-5.30 [facility] Comment on above: Order Comment: Campu s: M Performed By: #### L 200.51458 ####[facility] QMELBFXNGX8674 [place], [place] [address]Kj# [phone] WBC 13.9 K/CUMM High 4.5-11.0 [facility] Comment on above: Order Comment: Campu s: M Performed By: #### L 200.16220 ####[facility] BAEYZTTXIL2097 [place], [place] [address]Sc# [phone] Stacie 12-27-2021 EMERGENCY PHYSICIAN REPORT This is a preliminary report only, as the practitioner review and authentication has not occurred. Normal [facility] Normal [facility] G[facility] ESTon 12-27-2021 IF AMER Greater than [address] [facility] Comment on above: Order Comment: Campu s: M Performed By: #### L 500.27431, L500.92868, L500.88494 ####[facility] [id number] [place], [place] [address]Ly# [phone] IF non-AFR AMER Greater than [address] [facility] Comment on above: Order Comment: Campu s: M Performed By: #### L 500.56743, L500.96765, L500.58089 ####[facility] YDKTYFWMCD7641 [place], [place] [address]Cu# [phone] HCGon 12-27-2021 HCG SER RESULT Negative Normal NEGATIVE [facility] Comment on above: Order Comment: Campu s: M Performed By: #### L 500.83856, L500.34156, L500.86698 ####[facility] QSULZAHATZ3276 [place], [place] [address]Jz# [phone] LACTATE BLOODon 12-27-2021 LACTATE BLOOD 2.43 MMOL/L High 0.40-2.00 [facility] Comment on above: Order Comment: Campu s: M Performed By: #### L 550.51033 ####[facility] JORWKPFIXT9397 [place], [place] [address]Hv# [phone] LIPASEon 12-27-2021 Lipase [Catalytic activity/Vol] 25 U/L Normal 12-60 [facility] Comment on above: Order Comment: Campu s: M Result Comment: NOTE NEW NORMAL RANGE DUE TO REAGENT CHANGE Performed By: #### L 500.47138, L500.33286 ####[facility] [id number] [place], [place] [address]Fe# [phone] LIVERon 12-27-2021 Albumin [Mass/Vol] 4.2 g/dL Normal 3.2-5.0 [facility] Comment on above: Order Comment: Campu s: M Performed By: #### L 500.77755, L500.36839 ####[facility] [id number] [place], [place] [address]Eu# [phone] Albumin/Globulin [Mass ratio] 1.7 {ratio} Normal 0.8-2.0 [facility] Comment on above: Order Comment: Campu s: M Performed By: #### L 500.32048, L500.10624 ####[facility] [id number] [place], [place] [address]Gk# [phone] ALK PHOS 87 U/L Normal 45-117 [facility] Comment on above: Order Comment: Campu s: M Performed By: #### L 500.05852, L500.36782 ####[facility] [id number] [place], [place] [address]Is# [phone] ALT [Catalytic activity/Vol] 13 U/L Normal 13-61 [facility] Comment on above: Order Comment: Campu s: M Result Comment: RESU LTS MAY BE FALSELY DEPRESSED AFTER THE ADMINISTRATION OFSULFASALAZINE AND/OR SULFAPYRIDINE. Performed By: #### L 500.24995, L500.58129 ####[facility] [id number] [place], [place] [address]Pr# [phone] AST [Catalytic activity/Vol] 23 U/L Normal 8-34 [facility] Comment on above: Order Comment: Campu s: M Result Comment: RESU LTS MAY BE FALSELY DEPRESSED AFTER THE ADMINISTRATION OFSULFASALAZINE AND/OR SULFAPYRIDINE. Performed By: #### L 500.90719, L500.49997 ####[facility] [id number] [place], [place] [address]Py# [phone] BILI DIRECT 0.3 MG/DL Normal 0.00-0.36 [facility] Comment on above: Order Comment: Campu s: M Result Comment: NOTE NEW NORMAL RANGE DUE TO REAGENT CHANGE Performed By: #### L 500.76034, L500.55948 ####[address] [address]Fi# [phone] BILI TOTAL 0.90 MG/DL Normal 0.2-1.0 [facility] Comment on above: Order Comment: Campu s: M Performed By: #### L 500.13046, L500.08359 ####[address] [address]Zf# [phone] Globulin (S) [Mass/Vol] 2.5 g/dL Normal 2.2-4.2 [facility] Comment on above: Order Comment: Campu s: M Performed By: #### L 500.19431, L500.75985 ####[address] [address]Rp# [phone] Protein [Mass/Vol] 6.7 g/dL Normal 6.0-8.5 [facility] Comment on above: Order Comment: Campu s: M Performed By: #### L 500.37579, L500.38371 ####[address] [address]Hj# [phone] [id number] 12-27-2021 SARS-CoV-2 (COVID-19) RNA DANIEL+probe Ql (Unsp spec) Negative Invalid Interpretation Code Negative [facility] Comment on above: Order Comment: [...] performed by PCR. Performed By: #### L 770.61539 ####[facility] PGXJUMDJYC7503 [place], [place] [address]La# [phone] UA COMPLETEon 12-27-2021 Color (U) Yellow Normal [facility] Comment on above: Order Comment: Campu s: M Performed By: #### L 600.60073 ####[facility] [id number] [place] [address]Xp# [phone] Glucose (U) [Mass/Vol] Negative Normal NORMAL [facility] Comment on above: Order Comment: Campu s: M Performed By: #### L 600.02271 ####[facility] PDHPTSNIUH[address] [place] [address]Ml# [phone] UA APPEARANCE Clear Normal CLEAR [facility] Comment on above: Order Comment: Campu s: M Performed By: #### L 600.14541 ####[facility] [id number] [place] [address]Yy# [phone] UA BILIRUBIN Negative Normal NEGATIVE [facility] Comment on above: Order Comment: Campu s: M Performed By: #### L 600.00819 ####[facility] [id number] [place] [address]Cx# [phone] UA BLOOD Negative Normal NEGATIVE [facility] Comment on above: Order Comment: Campu s: M Performed By: #### L 600.97508 ####[facility] [id number] [place], [place] [address]Pb# [phone] UA KETONE 80 Normal NEGATIVE [facility] Comment on above: Order Comment: Campu s: M Performed By: #### L 600.86401 ####[facility] JPFFVXHUTW[address] [place] [address]Bh# [phone] UA LK ESTERASE Negative Normal NEGATIVE [facility] Comment on above: Order Comment: Campu s: M Performed By: #### L 600.23185 ####[facility] [id number] [place], [place] [address]Eb# [phone] UA NITRITE Negative Normal NEGATIVE [facility] Comment on above: Order Comment: Campu s: M Performed By: #### L 600.26448 ####[facility] [id number] [place], [place] [address]Av# [phone] UA PH 6.0 Normal 5-6 [facility] Comment on above: Order Comment: Campu s: M Performed By: #### L 600.20960 ####[facility] [id number] [place], [place] [address]Ae# [phone] UA PROTEIN Negative Normal NEGATIVE [facility] Comment on above: Order Comment: Campu s: M Performed By: #### L 600.67797 ####[facility] JSPQIPSUVY[address] [place] [address]Sm# [phone] UA SPEC GRAV 1.018 Normal 1.005-1.030 [facility] Comment on above: Order Comment: Campu s: M Performed By: #### L 600.96738 ####[facility] [id number] [place] [address]Sw# [phone] UA UROBILINOGEN 2.0 Normal NORMAL [facility] Comment on above: Order Comment: Campu s: M Performed By: #### L 600.02053 ####[facility] XXKPHOBFUN[address] [place] [address]El# [phone] VBG PHon 12-27-2021 VBG PH 7.57 MMHG High 7.31-7.41 [facility] Comment on above: Order Comment: Campu s: M Performed By: #### L 100.66488 ####[facility] [id number] [place], [place] [address]Nh# [phone] Stacie 12-26-2021 EMERGENCY PHYSICIAN REPORT This is a preliminary report only, as the practitioner review and authentication has not occurred. [facility] GLUCOSE METERon 12-26-2021 Glucose [Mass/Vol] 246 mg/dL High 70-115 [facility] Glucose [Mass/Vol] 311 mg/dL High 70-115 [facility] PROG.NOTEon 12-26-2021 PROG.NOTE Normal [facility] Progress Note-Physician Normal [facility] ABDOMEN OR KUBon 12-25-2021 ABDOMEN OR KUB Normal [facility] BETA-HYDRO BUTon 12-25-2021 BETA-HYDRO BUT 2.49 MMOL/L High 0.02-0.27 [facility] Comment on above: Order Comment: Campu s: M Result Comment: Bloo d ketone levels will vary depending on several factors(for example, food intake, alcohol intake and conditionssuch as ketoacidosis). Patients should be fasting 12 hoursprior to collection.PATIENT SAMPLES WITH HIGH LEVELS OF M-PROTEIN (I.E.GAMMOPATHY) MAY AFFECT THE ACCURACY OF THIS ASSAY. Performed By: #### L 500.80069 ####[facility] [id number] [place], [place] [address]At# [phone] BMPon 12-25-2021 Anion gap [Moles/Vol] 13 mmol/L Normal 5-16 [facility] Comment on above: Order Comment: Campu s: M Performed By: #### L 500.04215, L500.87796, L500.26923, L500.43905, L500.10277 ####[facility] [id number] [place], [place] [address]Nh# [phone] Calcium [Mass/Vol] 10.0 mg/dL Normal 8.5-10.5 [facility] Comment on above: Order Comment: Campu s: M Result Comment: NOTE NEW NORMAL RANGE DUE TO REAGENT CHANGE Performed By: #### L 500.06737, L500.04913, L500.42792, L500.48761, L500.11048 ####[facility] FJILOCZMLD4041 [place], [place] [address]Ow# [phone] Chloride [Moles/Vol] 107 mmol/L Normal 98-107 [facility] Comment on above: Order Comment: Benjiu s: M Performed By: #### L 500.21958, L500.60389, L500.88306, L500.84340, L500.75809 ####[facility] ZAGIFWGMPH3928 [place], [place] [address]Or# [phone] CO2 [Moles/Vol] 17.0 mmol/L Low 21-32 [facility] Comment on above: Order Comment: Benjiu s: M Performed By: #### L 500.85730, L500.47147, L500.92557, L500.91452, L500.61745 ####[facility] JZAEHKKRJO1309 [place], [place] [address]Qm# [phone] Creatinine [Mass/Vol] 0.66 mg/dL Normal 0.510-0.950 [facility] Comment on above: Order Comment: Benjiu s: M Result Comment: Cleopatra ents receiving either N-Acetylcysteine (NAC) orMetamizole prior to venipuncture, may have falsely depressedresults. Performed By: #### L 500.31425, L500.42774, L500.49329, L500.30203, L500.19230 ####[facility] XBSEPNQJQK7767 [place], [place] [address]La# [phone] Glucose [Mass/Vol] 359 mg/dL High 70-100 [facility] Comment on above: Order Comment: Benjiu s: M Result Comment: 70-1 00- Normal Fasting; 100-125 Impaired Fasting; greaterthan 126 on more than one result- Diabetes. ADA guidelines.Results may be falsely elevated after the administration ofSulfapyridine.Results may be falsely depressed after the administration ofSulfasalazine. Performed By: #### L 500.84737, L500.47398, L500.06885, L500.37909, L500.81901 ####[facility] SCITTUEZUZ7166 [place], [place] [address]Gj# [phone] Potassium [Moles/Vol] 4.1 mmol/L Normal 3.5-5.1 [facility] Comment on above: Order Comment: Campu s: M Performed By: #### L 500.47819, L500.99430, L500.30758, L500.01373, L500.04382 ####[facility] DMSRAKOMQZ2886 [place], [place] [address]Jn# [phone] Sodium [Moles/Vol] 137 mmol/L Normal 136-145 [facility] Comment on above: Order Comment: Campu s: M Performed By: #### L 500.49123, L500.08771, L500.66452, L500.88128, L500.21336 ####[facility] PCYBTGPQGW0717 [place], [place] [address]Tl# [phone] Urea nitrogen [Mass/Vol] 17 mg/dL Normal 7-26 [facility] Comment on above: Order Comment: Campu s: M Performed By: #### L 500.41578, L500.36508, L500.79770, L500.41309, L500.93145 ####[facility] JOKHDKSWGZ6568 [place], [place] [address]Ok# [phone] Urea nitrogen/Creatinine [Mass ratio] 26 mg/mg High 15-24 [facility] Comment on above: Order Comment: Campu s: M Performed By: #### L 500.70447, L500.21473, L500.97397, L500.22365, L500.64341 ####[facility] MDYZMDDBBQ1637 [place], [place] [address]Vn# [phone] CBC W/DIFFon 12-25-2021 BASO ABS 0.00 K/CU MM Normal 0-0.2 [facility] Comment on above: Order Comment: Campu s: M Performed By: #### L 200.57912 ####[facility] [id number] [place] [address]Tp# [phone] Basophils/100 WBC (Bld) 0.2 % Normal 0-2 [facility] Comment on above: Order Comment: Campu s: M Performed By: #### L 200.08049 ####[facility] DASZGBSNHO[address] [place] [address]Mz# [phone] EOS ABS 0.00 K/CU MM Normal 0-0.5 [facility] Comment on above: Order Comment: Campu s: M Performed By: #### L 200.30913 ####[address] [address]As# [phone] Eosinophils/100 WBC (Bld) 0.0 % Normal 0-5 [facility] Comment on above: Order Comment: Campu s: M Performed By: #### L 200.90422 ####[address] [address]Nd# [phone] Erythrocyte distribution width (RBC) [Ratio] 13.4 % Normal 11-14.5 [facility] Comment on above: Order Comment: Campu s: M Performed By: #### L 200.71132 ####[address] [address]As# [phone] Hematocrit (Bld) [Volume fraction] 38.3 % Normal 35.0-47.0 [facility] Comment on above: Order Comment: Campu s: M Performed By: #### L 200.03016 ####[address] [address]Uy# [phone] Hemoglobin (Bld) [Mass/Vol] 13.0 g/dL Normal 11.5-15.5 [facility] Comment on above: Order Comment: Campu s: M Performed By: #### L 200.27777 ####[facility] FAVNGSSOVA[address] [place] [address]Vt# [phone] IMMATR GRAN ABS 0.20 K/CU MM Normal Less than 2 [facility] Comment on above: Order Comment: Campu s: M Performed By: #### L 200.92907 ####[facility] XZXOXDJRFP[address] [place], [place] [address]Ph# [phone] IMMATURE GRAN % 1.0 % Normal Less than 2 [facility] Comment on above: Order Comment: Campu s: M Performed By: #### L 200.09397 ####[facility] JTPVSAGZOW2102 [place], [place] [address]Yl# [phone] LYMPH ABS 0.90 K/CU MM Normal 0.9-4.4 [facility] Comment on above: Order Comment: Campu s: M Performed By: #### L 200.67348 ####[place] [address]Ph# [phone] Lymphocytes/100 WBC (Bld) 4.8 % Low 20-40 [facility] Comment on above: Order Comment: Campu s: M Performed By: #### L 200.22911 ####[place] [address]Ph# [phone] MCHC (RBC) [Mass/Vol] 33.9 g/dL Normal 32.0-36.[address] [facility] Comment on above: Order Comment: Campu s: M Performed By: #### L 200.15339 ####[facility] MDWMQYFBBH[address] [place], [place] [address]Ph# [phone] MCV (RBC) [Entitic vol] 84.2 fL Normal 80.0-99.0 [facility] Comment on above: Order Comment: Campu s: M Performed By: #### L 200.60518 ####[facility] [id number] [place], [place] [address]Ph# [phone] MONO ABS 0.50 K/CU MM Normal 0.1-1.1 [facility] Comment on above: Order Comment: Campu s: M Performed By: #### L 200.69465 ####[facility] AKVRWZXVAO67[address] [place], [place] [address]Ph# [phone] Monocytes/100 WBC (Bld) 2.4 % Normal 2-10 [facility] Comment on above: Order Comment: Campu s: M Performed By: #### L 200.50566 ####[facility] XDJMPRLRJG3361 [place], [place] [address]Iw# [phone] NEUTROPHIL ABS 17.60 K/CU MM High 2.0-8.3 [facility] Comment on above: Order Comment: Campu s: M Performed By: #### L 200.20101 ####[facility] MJZOGBTJOZ[address] [place] [address]Nz# [phone] Neutrophils/100 WBC (Bld) 91.6 % High 45-75 [facility] Comment on above: Order Comment: Campu s: M Performed By: #### L 200.31004 ####[address] [address]Go# [phone] Nucleated RBC/100 WBC (Bld) [Ratio] 0.0 % Normal Less than 1 [facility] Comment on above: Order Comment: Campu s: M Performed By: #### L 200.29511 ####[facility] BWAXPDVUCZ[address] [place] [address]Ku# [phone] Platelet mean volume (Bld) [Entitic vol] 13.2 fL High 9.4-12.4 [facility] Comment on above: Order Comment: Campu s: M Performed By: #### L 200.31701 ####[address] [address]Wj# [phone] PLT 187 K/CU MM Normal 150-450 [facility] Comment on above: Order Comment: Campu s: M Result Comment: Accu racy questionable due to platelet clumping, actualplatelet count may be higher than the reported value. Performed By: #### L 200.40045 ####[facility] PZSSHCATWL1074 [place], [place] [address]Vs# [phone] PLT EST UNABLE TO QUANTITATE Normal [facility] Comment on above: Order Comment: Campu s: M Performed By: #### L 200.53079 ####[facility] JVOSUMDVFO1239 [place], [place] [address]Jj# [phone] POIK 1+ Normal [facility] Comment on above: Order Comment: Campu s: M Performed By: #### L 200.69581 ####[facility] GSLIHGGDMN0179 [place], [place] [address]Vw# [phone] POLY 1+ Normal [facility] Comment on above: Order Comment: Campu s: M Performed By: #### L 200.91571 ####[facility] TNPFQRZVFA2170 [place], [place] [address]Fe# [phone] RBC 4.55 M/CU MM Normal 3.90-5.30 [facility] Comment on above: Order Comment: Campu s: M Performed By: #### L 200.37400 ####[facility] OBKLEDAEPA2350 [place], [place] [address]Gz# [phone] WBC 19.2 K/CUMM High 4.5-11.0 [facility] Comment on above: Order Comment: Campu s: M Performed By: #### L 200.89818 ####[facility] [id number] [place] [address]Vr# [phone] [facility] KATHLEEN VILLA ([id number]) 1995 F T Date Time Provider Department 12/25/21 VELIA KAUR During your visit today, we recorded the following information about you: Velia Kaur MD 12/25/2021 12:44 PM Signed 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 She is out of infusion sets for [...] 04/16/2014 [Z34.90] 11/22/2013 04/16/2014 Diabetes mellitus in ([facility]) [O24.919] 12/25/2013 04/16/2014 DKA (diabetic ketoacidoses) [E11.10] [...] Encounter Status:Closed by VELIA KAUR on 12/25/21 [facility] DSon 12-25-2021 DS Normal [facility] GFR ESTon 12-25-2021 IF AMER Greater than 60 [facility] Comment on above: Order Comment: Campu s: M Performed By: #### L 500.58766, L500.10079, L500.19839, L500.01948, L500.98006 ####[facility] [id number] [place], [place] [address]De# [phone] IF non-AFR AMER Greater than 60 [facility] Comment on above: Order Comment: Campu s: M Performed By: #### L 500.83843, L500.90734, L500.49072, L500.08167, L500.97045 ####[facility] YGOCRFZXQC2800 [place], [place] [address]Lr# [phone] HCGon 12-25-2021 HCG SER RESULT Negative Normal NEGATIVE [facility] Comment on above: Order Comment: Campu s: M Performed By: #### L 500.13349, L500.45365, L500.32658, L500.91791, L500.31397 ####[facility] EMNLAPNDRB6091 [place], [place] [address]Pw# [phone] HP.IMS.ADMon 12-25-2021 Admission-H&P Normal [facility] HP.IMS.ADM Normal [facility] LACTATE BLOODon 12-25-2021 LACTATE BLOOD 3.03 MMOL/L High 0.40-2.00 [facility] Comment on above: Order Comment: Campu s: M Performed By: #### L 550.36618, L100.47851 ####[facility] WIVGPQSHAH1855 [place], [place] [address]Ge# [phone] LIPASEon 12-25-2021 Lipase [Catalytic activity/Vol] 23 U/L Normal 12-60 [facility] Comment on above: Order Comment: Campu s: M Result Comment: NOTE NEW NORMAL RANGE DUE TO REAGENT CHANGE Performed By: #### L 500.34354, L500.12264, L500.38978, L500.02275, L500.59935 ####[facility] IJETQFIPDP6664 [place], [place] [address]Rf# [phone] LIVERon 12-25-2021 Albumin [Mass/Vol] 4.2 g/dL Normal 3.2-5.0 [facility] Comment on above: Order Comment: Campu s: M Performed By: #### L 500.24340, L500.53921, L500.28855, L500.39788, L500.92808 ####[facility] EDTOCTQCWY5123 [place], [place] [address]Bn# [phone] Albumin/Globulin [Mass ratio] 1.6 {ratio} Normal 0.8-2.0 [facility] Comment on above: Order Comment: Campu s: M Performed By: #### L 500.22576, L500.24804, L500.22416, L500.45571, L500.61039 ####[facility] VHBSYEYGYJ4750 [place], [place] [address]Al# [phone] ALK PHOS 92 U/L Normal 45-117 [facility] Comment on above: Order Comment: Campu s: M Performed By: #### L 500.65625, L500.18522, L500.50945, L500.00398, L500.71554 ####[facility] LNIFBDQJHV9827 [place], [place] [address]Zx# [phone] ALT [Catalytic activity/Vol] 13 U/L Normal 13-61 [facility] Comment on above: Order Comment: Benjiu s: M Result Comment: RESU LTS MAY BE FALSELY DEPRESSED AFTER THE ADMINISTRATION OFSULFASALAZINE AND/OR SULFAPYRIDINE. Performed By: #### L 500.98396, L500.62136, L500.34192, L500.30627, L500.82258 ####[facility] LGZUTEMLIH9777 [place], [place] [address]Mv# [phone] AST [Catalytic activity/Vol] 18 U/L Normal 8-34 [facility] Comment on above: Order Comment: Benjiu s: M Result Comment: RESU LTS MAY BE FALSELY DEPRESSED AFTER THE ADMINISTRATION OFSULFASALAZINE AND/OR SULFAPYRIDINE. Performed By: #### L 500.03917, L500.21158, L500.41615, L500.40263, L500.75838 ####[facility] HNXWLXEQPN0635 [place], [place] [address]Nx# [phone] BILI DIRECT 0.3 MG/DL Normal 0.00-0.36 [facility] Comment on above: Order Comment: Benjiu s: M Result Comment: NOTE NEW NORMAL RANGE DUE TO REAGENT CHANGE Performed By: #### L 500.36284, L500.06895, L500.67236, L500.05912, L500.32622 ####[facility] LAWWZIBWQT0356 [place], [place] [address]Iy# [phone] BILI TOTAL 0.90 MG/DL Normal 0.2-1.0 [facility] Comment on above: Order Comment: Zach s: M Performed By: #### L 500.64079, L500.06669, L500.04295, L500.24307, L500.25839 ####[facility] PGRPXLMZAA2406 [place], [place] [address]Kx# [phone] Globulin (S) [Mass/Vol] 2.6 g/dL Normal 2.2-4.2 [facility] Comment on above: Order Comment: Campu s: M Performed By: #### L 500.06673, L500.71392, L500.22543, L500.87238, L500.29100 ####[facility] LBXRTOGJWX7509 [place], [place] [address]Ti# [phone] Protein [Mass/Vol] 6.8 g/dL Normal 6.0-8.5 [facility] Comment on above: Order Comment: Campu s: M Performed By: #### L 500.55443, L500.75844, L500.02249, L500.04974, L500.79242 ####[facility] LDEYFPNRZI5721 [place], [place] [address]Vw# [phone] [id number] 12-25-2021 SARS-CoV-2 (COVID-19) RNA DANIEL+probe Ql (Unsp spec) Negative Invalid Interpretation Code Negative [facility] Comment on above: Order Comment: [...] performed by PCR. Performed By: #### L 770.21800 ####[facility] SLIBIOHZMU5313 [place], [place] [address]Jm# [phone] UA COMPLETEon 12-25-2021 Color (U) Straw Normal [facility] Comment on above: Order Comment: Campu s: M Performed By: #### L 600.17433 ####[facility] XVHFBYBIKI1136 [place], [place] [address]Pl# [phone] Glucose (U) [Mass/Vol] 500 mg/dL Normal NORMAL [facility] Comment on above: Order Comment: Campu s: M Performed By: #### L 600.65587 ####[facility] WMTAZJJANT0774 [place], [place] [address]Ns# [phone] UA APPEARANCE Clear Normal CLEAR [facility] Comment on above: Order Comment: Campu s: M Performed By: #### L 600.00866 ####[facility] QMXQFOOYHK[address] [place] [address]Kq# [phone] UA BILIRUBIN Negative Normal NEGATIVE [facility] Comment on above: Order Comment: Campu s: M Performed By: #### L 600.56559 ####[facility] [id number] [place] [address]Ut# [phone] UA BLOOD Negative Normal NEGATIVE [facility] Comment on above: Order Comment: Campu s: M Performed By: #### L 600.97030 ####[facility] JYUZSOQCDC[address] [place] [address]Rj# [phone] UA KETONE 80 Normal NEGATIVE [facility] Comment on above: Order Comment: Campu s: M Performed By: #### L 600.70930 ####[facility] NFNLXEXAPO[address] [place] [address]Ts# [phone] UA LK ESTERASE Negative Normal NEGATIVE [facility] Comment on above: Order Comment: Campu s: M Performed By: #### L 600.82767 ####[facility] VXMJCPDCFK[address] [place] [address]Cm# [phone] UA NITRITE Negative Normal NEGATIVE [facility] Comment on above: Order Comment: Campu s: M Performed By: #### L 600.35835 ####[facility] ZKBDXWQUKP[address] [place] [address]Fy# [phone] UA PH 7.0 Normal 5-6 [facility] Comment on above: Order Comment: Campu s: M Performed By: #### L 600.14741 ####[facility] EHVTNLCNFK[address] [place] [address]Pd# [phone] UA PROTEIN Negative Normal NEGATIVE [facility] Comment on above: Order Comment: Campu s: M Performed By: #### L 600.54554 ####[facility] YNVBMDAAYN5386 [place], [place] [address]Wk# [phone] UA SPEC GRAV 1.028 Normal 1.005-1.030 [facility] Comment on above: Order Comment: Campu s: M Performed By: #### L 600.16607 ####[address] [address]Ki# [phone] UA UROBILINOGEN Negative Normal NORMAL [facility] Comment on above: Order Comment: Campu s: M Performed By: #### L 600.08553 ####[address] [address]Vd# [phone] VBGPEon 12-25-2021 BASE EXCESS -3.6 MMOL/L Low 0-2 [facility] Comment on above: Order Comment: Campu s: M Performed By: #### L 550.14160, L100.92548 ####[facility] [id number] [place] [address]Ss# [phone] Body temperature 98.6 [degF] Normal [facility] Comment on above: Order Comment: Campu s: M Performed By: #### L 550.76223, L100.47956 ####[address] [address]Hd# [phone] EQUIPMENT UNKNOWN Normal [facility] Comment on above: Order Comment: Campu s: M Performed By: #### L 550.11029, L100.95703 ####[facility] [id number] [place] [address]Bm# [phone] HCO3 (Bld) [Moles/Vol] 17.0 mmol/L Low 22-26 M [facility] Comment on above: Order Comment: Campu s: M Performed By: #### L 550.15593, L100.47089 ####[facility] [id number] [place] [address]Ia# [phone] Hemoglobin (Bld) [Mass/Vol] 14.2 g/dL Low 16.0-22.0 [facility] Comment on above: Order Comment: Campu s: M Performed By: #### L 550.84000, L100.42875 ####[facility] [id number] [place] [address]Gd# [phone] IONIZED CA 1.13 MMOL/L Normal 1.13-1.32 [facility] Comment on above: Order Comment: Campu s: M Performed By: #### L 550.05293, L100.74924 ####[facility] [id number] [place] [address]Sa# [phone] Potassium [Moles/Vol] 4.1 mmol/L Normal 3.5-5.0 [facility] Comment on above: Order Comment: Campu s: M Performed By: #### L 550.96128, L100.81069 ####[address] [address]Un# [phone] SAMPLE SITE VENOUS Normal [facility] Comment on above: Order Comment: Campu s: M Performed By: #### L 550.77736, L100.59164 ####[address] [address]Vb# [phone] SAMPLE TYPE VENOUS Normal [facility] Comment on above: Order Comment: Campu s: M Performed By: #### L 550.49631, L100.22673 ####[facility] [id number] [place] [address] [address]Gx# [phone] Sodium [Moles/Vol] 136 mmol/L Normal 136-148 [facility] Comment on above: Order Comment: Campu s: M Performed By: #### L 550.54133, L100.98612 ####[facility] [id number] [place] [address]Cb# [phone] VBG CARBOXYHGB 1.4 % Normal 0-10 [facility] Comment on above: Order Comment: Campu s: M Performed By: #### L 550.62480, L100.19924 ####[facility] XESAXPRVXY4643 [place], [place] [address]Gj# [phone] VBG METHGB 0.3 % Low 0.4-1.5 [facility] Comment on above: Order Comment: Campu s: M Performed By: #### L 550.15570, L100.98755 ####[place] [address] [place], [place] [address]Da# [phone] VBG O2 CAPACITY 19.4 VOL% Normal [facility] Comment on above: Order Comment: Campu s: M Performed By: #### L 550.81601, L100.57431 ####[address] [address]Rr# [phone] VBG O2 HG SATUR 65.5 % Normal 40-70 [facility] Comment on above: Order Comment: Campu s: M Performed By: #### L 550.41758, L100.57442 ####[address] [address]Yv# [phone] VBG PCO2 21.5 MMHG Critically low 40-50 [facility] Comment on above: Order Comment: Campu s: M Result Comment: CRIT ICAL VALUE(S) VERIFIED AND HAND DELIVERED TO AND READBACK BY DR. HOFFMAN AT 1835 12/25/21 BY JOSE MARCIAL. Performed By: #### L 550.12596, L100.55719 ####[facility] [id number] [place] [address]Xg# [phone] VBG PH 7.52 MMHG High 7.31-7.41 [facility] Comment on above: Order Comment: Campu s: M Performed By: #### L 550.46216, L100.50078 ####[facility] TJQYQIZBZS9037 [place], [place] [address]Eu# [phone] VBG PO2 LESS THAN 32.4 Low 35-45 [facility] Comment on above: Order Comment: Campu s: M Result Comment: VALU E IS OUTSIDE OF THE VERIFIED RANGES OF THIS ANALYZER.LIN MARCIAL Performed By: #### L 550.09742, L100.37296 ####[facility] [id number] [place], [place] [address]Ti# [phone] DISCH.SUMon 10-25-2021 DISCH.SUM Normal [facility] GLUCOSE METERon 10-25-2021 Glucose [Mass/Vol] 113 mg/dL Normal 70-115 [facility] Glucose [Mass/Vol] 108 mg/dL Normal 70-115 [facility] BMPon 10-24-2021 Anion gap [Moles/Vol] 12 mmol/L Normal 5-16 [facility] Comment on above: Order Comment: Campu s: M Performed By: #### L 500.65264, L500.58679 ####[facility] ORWCMOCXVB9712 [place], [place] [address]Vu# [phone] Calcium [Mass/Vol] 8.4 mg/dL Low 8.5-10.5 [facility] Comment on above: Order Comment: Campu s: M Result Comment: NOTE NEW NORMAL RANGE DUE TO REAGENT CHANGE Performed By: #### L 500.13106, L500.57623 ####[facility] BQVHHVOXNN0768 [place], [place] [address]Ya# [phone] Chloride [Moles/Vol] 103 mmol/L Normal 98-107 [facility] Comment on above: Order Comment: Campu s: M Performed By: #### L 500.11495, L500.10999 ####[facility] TOLTFMJJTD6709 [place], [place] [address]Om# [phone] CO2 [Moles/Vol] 24.0 mmol/L Normal 21-32 [facility] Comment on above: Order Comment: Campu s: M Performed By: #### L 500.93325, L500.48789 ####[facility] BWLBKRPRDH4646 [place], [place] [address]Mp# [phone] Creatinine [Mass/Vol] 0.69 mg/dL Normal 0.510-0.950 [facility] Comment on above: Order Comment: Campu s: M Result Comment: Cleopatra ents receiving either N-Acetylcysteine (NAC) orMetamizole prior to venipuncture, may have falsely depressedresults. Performed By: #### L 500.03614, L500.57903 ####[facility] FUYBVXMVWC3618 [place], [place] [address]Ju# [phone] Glucose [Mass/Vol] 113 mg/dL High 70-100 [facility] Comment on above: Order Comment: Campu s: M Result Comment: 70-1 00- Normal Fasting; 100-125 Impaired Fasting; greaterthan 126 on more than one result- Diabetes. ADA guidelines.Results may be falsely elevated after the administration ofSulfapyridine.Results may be falsely depressed after the administration ofSulfasalazine. Performed By: #### L 500.08443, L500.53723 ####[facility] CNIYSAQASG[address] [place] [address]Wv# [phone] Potassium [Moles/Vol] 3.0 mmol/L Low 3.5-5.1 [facility] Comment on above: Order Comment: Campu s: M Result Comment: NOT A CRITICAL Performed By: #### L 500.34154, L500.12720 ####[facility] PQCZHUDCFK4022 [place], [place] [address]Ud# [phone] Sodium [Moles/Vol] 139 mmol/L Normal 136-145 [facility] Comment on above: Order Comment: Campu s: M Performed By: #### L 500.81972, L500.64415 ####[facility] OIEFRGQJGH3623 [place], [place] [address]In# [phone] Urea nitrogen [Mass/Vol] 10 mg/dL Normal 7-26 [facility] Comment on above: Order Comment: Campu s: M Performed By: #### L 500.92820, L500.95306 ####[facility] REQUBFLCRV6793 [place], [place] [address]Vk# [phone] Urea nitrogen/Creatinine [Mass ratio] 15 mg/mg Normal 15-24 [facility] [place] Comment on above: Order Comment: Campu s: M Performed By: #### L 500.43778, L500.76648 ####[facility] WYMCZFDMOJ9307 [place], [place] [address]Tl# [phone] CBC W/DIFFon 10-24-2021 BASO ABS 0.00 K/CU MM Normal 0-0.2 [facility] [place] Comment on above: Order Comment: Campu s: M Performed By: #### L 200.35464 ####[facility] UAYEBVOQJY[address] [place] [address]Dj# [phone] Basophils/100 WBC (Bld) 0.2 % Normal 0-2 [facility] Comment on above: Order Comment: Campu s: M Performed By: #### L 200.15986 ####[facility] OFXNCHFXSU[address] [place], [place] [address]Ph# [phone] EOS ABS 0.00 K/CU MM Normal 0-0.5 [facility] Comment on above: Order Comment: Campu s: M Performed By: #### L 200.61907 ####[facility] PCVGSOAQCX9[address] [place] [address]Hq# [phone] Eosinophils/100 WBC (Bld) 0.0 % Normal 0-5 [facility] Comment on above: Order Comment: Campu s: M Performed By: #### L 200.89058 ####[facility] UVINDJXIZT[address] [place] [address]Ql# [phone] Erythrocyte distribution width (RBC) [Ratio] 13.3 % Normal 11-14.5 [facility] Comment on above: Order Comment: Campu s: M Performed By: #### L 200.43354 ####[facility] [id number] [place] [address]Kk# [phone] Hematocrit (Bld) [Volume fraction] 36.5 % Normal 35.0-47.0 [facility] Comment on above: Order Comment: Campu s: M Performed By: #### L 200.12018 ####[facility] [id number] [place], [place] [address]Ph# [phone] Hemoglobin (Bld) [Mass/Vol] 12.3 g/dL Normal 11.5-15.5 [facility] Comment on above: Order Comment: Campu s: M Performed By: #### L 200.37184 ####[facility] VSQWEPKNUF[address] [place], [place] [address]Ph# [phone] IMMATR GRAN ABS 0.20 K/CU MM Normal Less than 2 [facility] Comment on above: Order Comment: Campu s: M Performed By: #### L 200.33518 ####[place] [address]707908Ph# [phone] IMMATURE GRAN % 1.3 % Normal Less than 2 [facility] Comment on above: Order Comment: Campu s: M Performed By: #### L 200.60388 ####[facility] DEJORTEVCY[address] [place], [place] [address]Ph# [phone] LYMPH ABS 1.90 K/CU MM Normal 0.9-4.4 [facility] Comment on above: Order Comment: Campu s: M Performed By: #### L 200.27010 ####[facility] WUSEQKJSBE[address] [place], [place] [address]Ph# [phone] Lymphocytes/100 WBC (Bld) 14.9 % Low 20-40 [facility] Comment on above: Order Comment: Campu s: M Performed By: #### L 200.71343 ####[facility] IOVEFOOYSB[address] [place], [place] [address]Ph# [phone] MCHC (RBC) [Mass/Vol] 33.7 g/dL Normal 32.0-36.0 [facility] Comment on above: Order Comment: Campu s: M Performed By: #### L 200.85339 ####[facility] BZUWHWHXHL119[address] [place], [place] [address]Ph# [phone] MCV (RBC) [Entitic vol] 84.1 fL Normal 80.0-99.0 [facility] Comment on above: Order Comment: Campu s: M Performed By: #### L 200.60266 ####[facility] FWACQDDEXZ9048 [place], [place] [address]Qg# [phone] MONO ABS 0.70 K/CU MM Normal 0.1-1.1 [facility] Comment on above: Order Comment: Campu s: M Performed By: #### L 200.19124 ####[place] [address]908Ph# [phone] Monocytes/100 WBC (Bld) 5.3 % Normal 2-10 [facility] Comment on above: Order Comment: Campu s: M Performed By: #### L 200.88357 ####[place] [address]707[address]Ph# [phone] NEUTROPHIL ABS 10.10 K/CU MM High 2.0-8.3 [facility] Comment on above: Order Comment: Campu s: M Performed By: #### L 200.75554 ####[facility] BOACJITKRY[address] [place], [place] [address]Ph# [phone] Neutrophils/100 WBC (Bld) 78.3 % High 45-75 [facility] Comment on above: Order Comment: Campu s: M Performed By: #### L 200.35373 ####[facility] AMPQSLAGSP[address] [place], [place] [address]Ph# [phone] Nucleated RBC/100 WBC (Bld) [Ratio] 0.0 % Normal Less than 1 [facility] Comment on above: Order Comment: Campu s: M Performed By: #### L 200.09764 ####[facility] QBJNHPYYYU[address] [place] [address]Za# [phone] Platelet mean volume (Bld) [Entitic vol] 11.8 fL Normal 9.4-12.4 [facility] Comment on above: Order Comment: Campu s: M Performed By: #### L 200.86240 ####[facility] AWHZOQGJOQ6276 [place], [place] [address]Np# [phone] PLT 176 K/CU MM Normal 150-450 [facility] Comment on above: Order Comment: Campu s: M Performed By: #### L 200.12295 ####[facility] DMLUMEVIDQ8561 [place], [place] [address]Zg# [phone] RBC 4.34 M/CU MM Normal 3.90-5.30 [facility] Comment on above: Order Comment: Campu s: M Performed By: #### L 200.98771 ####[facility] NPOJADAUSU9318 [place], [place] [address]Bs# [phone] WBC 12.9 K/CUMM High 4.5-11.0 [facility] Comment on above: Order Comment: Campu s: M Performed By: #### L 200.90520 ####[facility] [address] [place] [address]Sw# [phone] GFR ESTon 10-24-2021 IF AMER Greater than 60 [facility] Comment [facility]: Order Comment: Campu s: M Performed By: #### L 500.01925, L500.65556 ####[facility] DVDVCVXRPH[address] [place] [address]Qk# [phone] IF non-AFR AMER Greater than 60 Normal [facility] Comment on above: Order Comment: Campu s: M Performed By: #### L 500.11396, L500.86554 ####[facility] [address] [place] [address]Nd# [phone] GLUCOSE METERon 10-24-2021 Glucose [Mass/Vol] 203 mg/dL High 70-115 [facility] Glucose [Mass/Vol] 115 mg/dL Normal 70-115 [facility] Glucose [Mass/Vol] 103 mg/dL Normal 70-115 [facility] Glucose [Mass/Vol] 112 mg/dL Normal 70-115 [facility] [place] PROG IMSon 10-24-2021 PROG IMS Normal [facility] Progress Note-Hospitalist Normal [facility] PTon 10-24-2021 INR Coag (PPP) [Relative time] 1.05 {INR} Normal 0.9-1.1 [facility] Comment on above: Order Comment: Benjiu s: M Result Comment: Den mmended PT INR therapeutic range for mcc andprophylactic therapy is 2.0 - 3.0. For heart valve andshunt patients the range is 2.5 - 3.5. Performed By: #### L 300.63534 ####[facility] [id number] [place] [address]Ww# [phone] PTS 11.4 SECONDS Normal 9.5-12.0 [facility] Comment on above: Order Comment: Benjiu s: M Performed By: #### L 300.28023 ####[facility] Q[address]HJKOSEJ[address] [place] [address]Zv# [phone] UA COMPLETEon 10-24-2021 Color (U) Straw Normal [facility] Comment on above: Order Comment: Benjiu s: M Performed By: #### L 600.64874 ####[facility] TBQKBGTMQJ9542 [place], [place] [address]Oq# [phone] Glucose (U) [Mass/Vol] Negative Normal NORMAL Me [facility] Comment on above: Order Comment: Campu s: M Performed By: #### L 600.24524 ####[facility] [id number] [place], [place] [address]Ly# [phone] UA APPEARANCE Clear Normal CLEAR [facility] Comment on above: Order Comment: Campu s: M Performed By: #### L 600.27978 ####[facility] NRPAVWMCIX4890 [place], [place] [address]Nc# [phone] UA BILIRUBIN Negative Normal NEGATIVE [facility] Comment on above: Order Comment: Campu s: M Performed By: #### L 600.56117 ####[facility] DUKMMIMLLK8802 [place], [place] [address]Hy# [phone] UA BLOOD Negative Normal NEGATIVE [facility] Comment on above: Order Comment: Campu s: M Performed By: #### L 600.62284 ####[facility] HUWVEMQLLJ1376 [place], [place] [address]Xu# [phone] UA KETONE 20 Normal NEGATIVE [facility] Comment on above: Order Comment: Campu s: M Performed By: #### L 600.60202 ####[facility] XYYIPHLYJD3296 [place], [place] [address]Lx# [phone] UA LK ESTERASE Negative Normal NEGATIVE [facility] Comment on above: Order Comment: Campu s: M Performed By: #### L 600.44608 ####[facility] PIFSVWPLMJ3154 [place], [place] [address]Yx# [phone] UA NITRITE Negative Normal NEGATIVE [facility] Comment on above: Order Comment: Campu s: M Performed By: #### L 600.88683 ####[facility] HRIOKGMLIX[address] [place] [address]Uo# [phone] UA PH 7.0 Normal 5-6 [facility] Comment on above: Order Comment: Campu s: M Performed By: #### L 600.12915 ####[facility] [id number] [place] [address]Xi# [phone] UA PROTEIN Negative Normal NEGATIVE [facility] Comment on above: Order Comment: Campu s: M Performed By: #### L 600.34955 ####[facility] APNCCKIQBA0705 [place], [place] [address]Ex# [phone] UA SPEC GRAV 1.009 Normal 1.005-1.030 [facility] Comment on above: Order Comment: Campu s: M Performed By: #### L 600.50821 ####[facility] UQYMRXEZXZ1640 [place], [place] [address]Kv# [phone] UA UROBILINOGEN Negative Normal NORMAL [facility] Comment on above: Order Comment: Campu s: M Performed By: #### L 600.39625 ####[facility] IRNKOYCTRR7356 [place], [place] [address]Js# [phone] BMPon 10-23-2021 Anion gap [Moles/Vol] 12 mmol/L Normal 5-[address] [facility] Comment on above: Order Comment: Campu s: M Performed By: #### L 500.74887, L500.83687, L500.84989 ####[facility] TGNPAWYWVR5584 [place], [place] [address]Kv# [phone] Calcium [Mass/Vol] 8.7 mg/dL Normal 8.5-10.5 [facility] Comment on above: Order Comment: Campu s: M Result Comment: NOTE NEW NORMAL RANGE DUE TO REAGENT CHANGE Performed By: #### L 500.71916, L500.71133, L500.90146 ####[facility] PICTDLXANV3482 [place], [place] [address]Wt# [phone] Chloride [Moles/Vol] 107 mmol/L Normal 98-107 [facility] Comment on above: Order Comment: Campu s: M Performed By: #### L 500.86791, L500.02340, L500.70120 ####[facility] XQVWZNROLW3180 [place], [place] [address]Gk# [phone] CO2 [Moles/Vol] 22.0 mmol/L Normal 21-32 [facility] Comment on above: Order Comment: Campu s: M Performed By: #### L 500.38431, L500.39002, L500.12804 ####[facility] UVKXOFZDEL0257 [place], [place] [address]Lh# [phone] Creatinine [Mass/Vol] 0.62 mg/dL Normal 0.510-0.950 [facility] Comment on above: Order Comment: Campu s: M Result Comment: Cleopatra ents receiving either N-Acetylcysteine (NAC) orMetamizole prior to venipuncture, may have falsely depressedresults. Performed By: #### L 500.03833, L500.32855, L500.65513 ####[facility] LCLMLSIAXY9904 [place], [place] [address]Nh# [phone] Glucose [Mass/Vol] 208 mg/dL High 70-100 [facility] Comment on above: Order Comment: Campu s: M Result Comment: 70-1 00- Normal Fasting; 100-125 Impaired Fasting; greaterthan 126 on more than one result- Diabetes. ADA guidelines.Results may be falsely elevated after the administration ofSulfapyridine.Results may be falsely depressed after the administration ofSulfasalazine. Performed By: #### L 500.53913, L500.29572, L500.95137 ####[facility] NUBKEEFEDG7412 [place], [place] [address]Ug# [phone] Potassium [Moles/Vol] 3.2 mmol/L Low 3.5-5.[address] [facility] Comment on above: Order Comment: Campu s: M Performed By: #### L 500.23000, L500.99168, L500.77267 ####[facility] WWOCMZHRDG1653 [place], [place] [address]Yj# [phone] Sodium [Moles/Vol] 141 mmol/L Normal 136-145 [facility] Comment on above: Order Comment: Campu s: M Performed By: #### L 500.13380, L500.45381, L500.05234 ####[facility] ARVGWMXJGE2683 [place], [place] [address]Da# [phone] Urea nitrogen [Mass/Vol] 16 mg/dL Normal 7-26 [facility] Comment on above: Order Comment: Campu s: M Performed By: #### L 500.69573, L500.05526, L500.55649 ####[facility] OJXKTSVBDW3302 [place], [place] [address]Zp# [phone] Urea nitrogen/Creatinine [Mass ratio] 26 mg/mg High 15-24 [facility] Comment on above: Order Comment: Campu s: M Performed By: #### L 500.50096, L500.98951, L500.98639 ####[facility] ZHVDYNOVTN[address] [place] [address]Dc# [phone] CBC W/DIFFon 10-23-2021 BASO ABS 0.00 K/CU MM Normal 0-0.2 [facility] Comment on above: Order Comment: Campu s: M Performed By: #### L 200.44408 ####[address] [address]Nu# [phone] Basophils/100 WBC (Bld) 0.2 % Normal 0-2 [facility] Comment on above: Order Comment: Campu s: M Performed By: #### L 200.14761 ####[address] [address]An# [phone] EOS ABS 0.00 K/CU MM Normal 0-0.5 [facility] Comment on above: Order Comment: Campu s: M Performed By: #### L 200.23621 ####[address] [address]Rv# [phone] Eosinophils/100 WBC (Bld) 0.0 % Normal 0-5 [facility] Comment on above: Order Comment: Campu s: M Performed By: #### L 200.89621 ####[address] [address]Wh# [phone] Erythrocyte distribution width (RBC) [Ratio] 13.9 % Normal 11-14.5 [facility] Comment on above: Order Comment: Campu s: M Performed By: #### L 200.34398 ####[address] [address]Id# [phone] Hematocrit (Bld) [Volume fraction] 32.9 % Low 35.0-47.0 [facility] Comment on above: Order Comment: Campu s: M Performed By: #### L 200.97489 ####[facility] [id number] [place], [place] [address]Ph# [phone] Hemoglobin (Bld) [Mass/Vol] 11.0 g/dL Low 11.5-15.5 [facility] Comment on above: Order Comment: Campu s: M Performed By: #### L 200.55866 ####[facility] IZTAQIEWBY[address] [place] [address]Jg# [phone] IMMATR GRAN ABS 0.10 K/CU MM Normal Less than 2 [facility] Comment on above: Order Comment: Campu s: M Performed By: #### L 200.96029 ####[place] [address]707[address]Ph# [phone] IMMATURE GRAN % 0.8 % Normal Less than 2 [facility] Comment on above: Order Comment: Campu s: M Performed By: #### L 200.72208 ####[place] [address]707908Ph# [phone] LYMPH ABS 1.80 K/CU MM Normal 0.9-4.4 [facility] Comment on above: Order Comment: Campu s: M Performed By: #### L 200.88670 ####[place] [address]707908Ph# [phone] Lymphocytes/100 WBC (Bld) 10.5 % Low 20-40 [facility] Comment on above: Order Comment: Campu s: M Performed By: #### L 200.33567 ####[facility] [id number] [place], [place] [address]Ph# [phone] MCHC (RBC) [Mass/Vol] 33.4 g/dL Normal 32.0-36.[address] [facility] Comment on above: Order Comment: Campu s: M Performed By: #### L 200.21523 ####[facility] [id number] [place], [place] [address]Ph# [phone] MCV (RBC) [Entitic vol] 84.6 fL Normal 80.0-99.0 [facility] Comment on above: Order Comment: Campu s: M Performed By: #### L 200.90716 ####[facility] VEEXMXSLMM8783 [place], [place] [address]Uk# [phone] MONO ABS 0.70 K/CU MM Normal 0.1-1.1 [facility] Comment on above: Order Comment: Campu s: M Performed By: #### L 200.06434 ####[facility] QPWDZONHJY2154 [place] [address]8Ph# [phone] Monocytes/100 WBC (Bld) 3.9 % Normal 2-10 [facility] Comment on above: Order Comment: Campu s: M Performed By: #### L 200.24788 ####[facility] ONCSMMLDQQ1729 [place] [address]8Ph# [phone] NEUTROPHIL ABS 14.50 K/CU MM High 2.0-8.3 [facility] Comment on above: Order Comment: Campu s: M Performed By: #### L 200.32795 ####[facility] [id number] [place], [place] [address]Ph# [phone] Neutrophils/100 WBC (Bld) 84.6 % High 45-75 [facility] Comment on above: Order Comment: Campu s: M Performed By: #### L 200.69966 ####[facility] FBQMJZSZMU3663 [place] [address]8Ph# [phone] Nucleated RBC/100 WBC (Bld) [Ratio] 0.0 % Normal Less than 1 [facility] Comment on above: Order Comment: Campu s: M Performed By: #### L 200.84256 ####[facility] [id number] [place] [address]Ph# [phone] Platelet mean volume (Bld) [Entitic vol] 12.2 fL Normal 9.4-12.4 [facility] Comment on above: Order Comment: Campu s: M Performed By: #### L 200.43001 ####[facility] [id number] [place], [place] [address]Ag# [phone] PLT 145 K/CU MM Low 150-450 [facility] Comment on above: Order Comment: Campu s: M Performed By: #### L 200.78627 ####[facility] [id number] [place], [place] [address]Zy# [phone] RBC 3.89 M/CU MM Low 3.90-5.30 [facility] Comment on above: Order Comment: Campu s: M Performed By: #### L 200.71664 ####[facility] [id number] [place], [place] [address]Pa# [phone] WBC 17.1 K/CUMM High 4.5-11.0 [facility] Comment on above: Order Comment: Campu s: M Performed By: #### L 200.95952 ####[facility] [id number] [place] [address]Lg# [phone] GFR ESTon 10-23-2021 IF AMER Greater than 60 Normal [facility] Comment on above: Order Comment: Campu s: M Performed By: #### L 500.07765, L500.49364, L500.92389 ####[facility] [id number] [place], [place] [address]Oq# [phone] IF non-AFR AMER Greater than 60 [facility]: Order Comment: Campu s: M Performed By: #### L 500.24977, L500.23773, L500.53843 ####[facility] [id number] [place], [place] [address]Cs# [phone] GLUCOSE METERon 10-23-2021 Glucose [Mass/Vol] 142 mg/dL High 70-115 [facility] [place] Glucose [Mass/Vol] 127 mg/dL High 70-115 [facility] [place] Glucose [Mass/Vol] 172 mg/dL High 70-115 [facility] MAGNESIUMon 10-23-2021 Magnesium [Mass/Vol] 1.7 mg/dL Normal 1.6-2.6 [facility] Comment on above: Order Comment: Campu s: M Performed By: #### L 500.12157, L500.32160, L500.51717 ####[facility] [id number] [place], [place] [address]Eg# [phone] PROG IMSon 10-23-2021 PROG IMS Normal [facility] Progress Note-Hospitalist Normal [facility] BMPon 10-22-2021 Anion gap [Moles/Vol] 10 mmol/L Normal 5-16 [facility] Comment on above: Order Comment: Campu s: M Performed By: #### L 500.67714, L500.15669 ####[facility] [id number] [place], [place] [address]Fu# [phone] Calcium [Mass/Vol] 8.9 mg/dL Normal 8.5-10.5 [facility] Comment on above: Order Comment: Campu s: M Result Comment: NOTE NEW NORMAL RANGE DUE TO REAGENT CHANGE Performed By: #### L 500.12359, L500.10156 ####[facility] [id number] [place], [place] [address]Di# [phone] Chloride [Moles/Vol] 109 mmol/L High 98-107 [facility] Comment on above: Order Comment: Campu s: M Performed By: #### L 500.63716, L500.16519 ####[facility] LXNDVMOJBL5679 [place], [place] [address]Wm# [phone] CO2 [Moles/Vol] 20.0 mmol/L Low 21-32 [facility] Comment on above: Order Comment: Campu s: M Performed By: #### L 500.60563, L500.56196 ####[facility] VQGYETRBPQ4570 [place], [place] [address]Tz# [phone] Creatinine [Mass/Vol] 0.63 mg/dL Normal 0.510-0.950 [facility] Comment on above: Order Comment: Campu s: M Result Comment: Cleopatra ents receiving either N-Acetylcysteine (NAC) orMetamizole prior to venipuncture, may have falsely depressedresults. Performed By: #### L 500.19182, L500.14129 ####[facility] SHIMMFUHVT1271 [place], [place] [address]Fp# [phone] Glucose [Mass/Vol] 237 mg/dL High 70-100 [facility] Comment on above: Order Comment: Campu s: M Result Comment: 70-1 00- Normal Fasting; 100-125 Impaired Fasting; greaterthan 126 on more than one result- Diabetes. ADA guidelines.Results may be falsely elevated after the administration ofSulfapyridine.Results may be falsely depressed after the administration ofSulfasalazine. Performed By: #### L 500.35363, L5.03881 ####[facility] GWRQAMAGIH[address] [place] [address]Yp# [phone] Potassium [Moles/Vol] 3.8 mmol/L Normal 3.5-5.1 [facility] Comment on above: Order Comment: Campu s: M Performed By: #### L 500.50660, L5.03931 ####[facility] DENQNUWIFF[address] [place] [address]Df# [phone] Sodium [Moles/Vol] 140 mmol/L Normal 136-145 [facility] Comment on above: Order Comment: Campu s: M Performed By: #### L 500.97913, L5.96180 ####[facility] [id number] [place] [address]Eu# [phone] Urea nitrogen [Mass/Vol] 15 mg/dL Normal 7-26 [facility] Comment on above: Order Comment: Campu s: M Performed By: #### L 500.59210, L5.50492 ####[facility] WLFANCGWQZ[address] [place] [address]Aj# [phone] Urea nitrogen/Creatinine [Mass ratio] 24 mg/mg Normal 15-24 [facility] Comment on above: Order Comment: Campu s: M Performed By: #### L 500.26983, L500.23247 ####[facility] UMZZXMNFBA4069 [place], [place] [address]Dl# [phone] Urea nitrogen/Creatinine [Mass ratio] 25 mg/mg High 15-24 [facility] Comment on above: Order Comment: Campu s: M Performed By: #### L 500.18662, L500.77445, L500.77034, L500.33554 ####[facility] EAFFBKEEZP0924 [place], [place] [address]Ny# [phone] Anion gap [Moles/Vol] 12 mmol/L Normal 5-[address] [facility] Comment on above: Order Comment: Campu s: M Performed By: #### L 500.78038, L500.07521, L500.73621, L500.32980 ####[facility] EJWSPACARY6082 [place], [place] [address]Nr# [phone] Calcium [Mass/Vol] 10.1 mg/dL Normal 8.5-10.5 [facility] Comment on above: Order Comment: Campu s: M Result Comment: NOTE NEW NORMAL RANGE DUE TO REAGENT CHANGE Performed By: #### L 500.38854, L500.71056, L500.86338, L500.22569 ####[facility] HYVUJMOYAM4408 [place], [place] [address]Ws# [phone] Chloride [Moles/Vol] 107 mmol/L Normal 98-107 [facility] Comment on above: Order Comment: Campu s: M Performed By: #### L 500.95746, L500.31219, L500.05535, L500.59742 ####[facility] KBGMEHHIUO1432 [place], [place] [address]Zz# [phone] CO2 [Moles/Vol] 20.0 mmol/L Low 21-32 [facility] Comment on above: Order Comment: Campu s: M Performed By: #### L 500.53200, L500.44210, L500.39143, L500.64926 ####[facility] NCJAWCKCFG2812 [place], [place] [address]Wm# [phone] Creatinine [Mass/Vol] 0.64 mg/dL Normal 0.510-0.950 [facility] Comment on above: Order Comment: Zach s: M Result Comment: Cleopatra ents receiving either N-Acetylcysteine (NAC) orMetamizole prior to venipuncture, may have falsely depressedresults. Performed By: #### L 500.53712, L500.35943, L500.79501, L500.94495 ####[facility] LOSZLZZPZA6140 [place], [place] [address]Mb# [phone] Glucose [Mass/Vol] 309 mg/dL High 70-100 [facility] Comment on above: Order Comment: Benjiu s: M Result Comment: 70-1 00- Normal Fasting; 100-125 Impaired Fasting; greaterthan 126 on more than one result- Diabetes. ADA guidelines.Results may be falsely elevated after the administration ofSulfapyridine.Results may be falsely depressed after the administration ofSulfasalazine. Performed By: #### L 500.93159, L500.43469, L500.52803, L500.44385 ####[facility] HYUKISGGZE1662 [place], [place] [address]Kl# [phone] Potassium [Moles/Vol] 3.9 mmol/L Normal 3.5-5.1 [facility] Comment on above: Order Comment: Zach s: M Performed By: #### L 500.42957, L500.81023, L500.48093, L500.76885 ####[facility] RIPCXQGEEF6605 [place], [place] [address]Ip# [phone] Sodium [Moles/Vol] 139 mmol/L Normal 136-145 [facility] Comment on above: Order Comment: Zach s: M Performed By: #### L 500.80090, L500.16263, L500.96474, L500.87134 ####[facility] CXCNMDKGPQ8656 [place], [place] [address]Ir# [phone] Urea nitrogen [Mass/Vol] 16 mg/dL Normal 7-26 [facility] Comment on above: Order Comment: Campu s: M Performed By: #### L 500.84074, L500.44766, L500.17135, L500.76846 ####[facility] AKYLSHDNGE3278 [place], [place] [address]Jm# [phone] CBC W/DIFFon 10-22-2021 BASO ABS 0.10 K/CU MM Normal 0-0.2 [facility] Comment on above: Order Comment: Campu s: M Performed By: #### L 200.61076 ####[address] [address]Vb# [phone] Basophils/100 WBC (Bld) 0.2 % Normal 0-2 [facility] Comment on above: Order Comment: Campu s: M Performed By: #### L 200.70896 ####[facility] HZQHOAYHJR[address] [place], [place] [address]Ph# [phone] EOS ABS 0.00 K/CU MM Normal 0-0.5 [facility] Comment on above: Order Comment: Campu s: M Performed By: #### L 200.70529 ####[facility] OEZXYIMUJN[address] [place] [address]Ug# [phone] Eosinophils/100 WBC (Bld) 0.0 % Normal 0-5 [facility] Comment on above: Order Comment: Campu s: M Performed By: #### L 200.32543 ####[facility] MBESQANICY[address] [place] [address]Dc# [phone] Erythrocyte distribution width (RBC) [Ratio] 13.5 % Normal 11-14.5 [facility] Comment on above: Order Comment: Campu s: M Performed By: #### L 200.30365 ####[facility] JRNJTQSOGP38[address] [place] [address]My# [phone] Hematocrit (Bld) [Volume fraction] 39.5 % Normal 35.0-47.0 [facility] Comment on above: Order Comment: Campu s: M Performed By: #### L 200.80375 ####[facility] NDOJXCLFXB3521 [place] [id number]# [phone] Hemoglobin (Bld) [Mass/Vol] 13.4 g/dL Normal 11.5-15.5 [facility] Comment on above: Order Comment: Campu s: M Performed By: #### L 200.13627 ####[facility] QGVIWACJDI[address] [place], [place] [address]Ph# [phone] IMMATR GRAN ABS 0.20 K/CU MM Normal Less than 2 [facility] Comment on above: Order Comment: Campu s: M Performed By: #### L 200.03306 ####[facility] OSQUZWDMSR[address] [place], [place] [address]Ph# [phone] IMMATURE GRAN % 1.0 % Normal Less than 2 [facility] Comment on above: Order Comment: Campu s: M Performed By: #### L 200.62714 ####[facility] BVYSCUIICD77[address] [place], [place] [address]Ph# [phone] LYMPH ABS 1.30 K/CU MM Normal 0.9-4.4 [facility] Comment on above: Order Comment: Campu s: M Performed By: #### L 200.59039 ####[facility] IWPGZCKFIE[address] [place], [place] [address]Ph# [phone] Lymphocytes/100 WBC (Bld) 5.6 % Low 20-40 [facility] Comment on above: Order Comment: Campu s: M Performed By: #### L 200.49003 ####[facility] BBEHORJZWX[address] [place], [place] [address]Ph# [phone] MCHC (RBC) [Mass/Vol] 33.9 g/dL Normal 32.0-36.[address] [facility] Comment on above: Order Comment: Campu s: M Performed By: #### L 200.62797 ####[facility] LQOAEXQHNG4641 [place], [place] [address]Pc# [phone] MCV (RBC) [Entitic vol] 84.4 fL Normal 80.0-99.0 [facility] Comment on above: Order Comment: Campu s: M Performed By: #### L 200.34657 ####[address] [address]Mp# [phone] MONO ABS 0.60 K/CU MM Normal 0.1-1.1 [facility] Comment on above: Order Comment: Campu s: M Performed By: #### L 200.43320 ####[place] [address]Ph# [phone] Monocytes/100 WBC (Bld) 2.6 % Normal 2-10 [facility] Comment on above: Order Comment: Campu s: M Performed By: #### L 200.01690 ####[facility] [address]JQZPHVW[address] [place], [place] [address]Ph# [phone] NEUTROPHIL ABS 20.70 K/CU MM High 2.0-8.3 [facility] Comment on above: Order Comment: Campu s: M Performed By: #### L 200.57360 ####[facility] JWLUXJKIJB[address] [place] [address]Ss# [phone] Neutrophils/100 WBC (Bld) 90.6 % High 45-75 [facility] Comment on above: Order Comment: Campu s: M Performed By: #### L 200.75453 ####[facility] UTFMZGXAFZ[address] [place] [address]Xe# [phone] Nucleated RBC/100 WBC (Bld) [Ratio] 0.0 % Normal Less than 1 [facility] Comment on above: Order Comment: Campu s: M Performed By: #### L 200.55177 ####[facility] SNIZZWHOWE[address] [place] [address]Wt# [phone] Platelet mean volume (Bld) [Entitic vol] 13.2 fL High 9.4-12.4 [facility] Comment on above: Order Comment: Campu s: M Performed By: #### L 200.23667 ####[facility] XJLQCJGUFR3230 [place], [place] [address]Pp# [phone] PLT 164 K/CU MM Normal 150-450 [facility] Comment on above: Order Comment: Campu s: M Result Comment: Conf irmed by slide estimate. Performed By: #### L 200.88488 ####[facility] NCTRIOWOBP2005 [place], [place] [address]Zz# [phone] PLT EST ADEQUATE Normal [facility] Comment on above: Order Comment: Campu s: M Performed By: #### L 200.94152 ####[facility] QWWUVKQPPA[address] [place] [address]Gt# [phone] POIK 1+ Normal [facility] Comment on above: Order Comment: Campu s: M Performed By: #### L 200.73438 ####[facility] ICZBWDFGWI[address] [place] [address]Le# [phone] POLY 1+ Normal [facility] Comment on above: Order Comment: Campu s: M Performed By: #### L 200.57598 ####[facility] AKQBQEBNJG3614 [place], [place] [address]Cv# [phone] RBC 4.68 M/CU MM Normal 3.90-5.30 [facility] Comment on above: Order Comment: Campu s: M Performed By: #### L 200.30306 ####[facility] ZXHGOZGBKZ8863 [place], [place] [address]Xf# [phone] WBC 22.9 K/CUMM High 4.5-11.0 [facility] Comment on above: Order Comment: Campu s: M Performed By: #### L 200.64059 ####[facility] QYGVRMCHTV0383 [place], [place] [address]Ru# [phone] Stacie 02-25-2022 EMERGENCY PHYSICIAN REPORT This is a preliminary report only, as the practitioner review and authentication has not occurred. Normal [facility] ER Normal [facility] GFR ESTon 10-22-2021 IF AMER Greater than [address] [facility] Comment on above: Order Comment: Campu s: M Performed By: #### L 500.75722, L500.16917 ####[facility] MPLQQTSIRJ3858 [place], [place] [address]It# [phone] IF non-AFR AMER Greater than [address] [facility] Comment on above: Order Comment: Campu s: M Performed By: #### L 500.06049, L500.43631 ####[facility] QPHBQANYJB1710 [place], [place] [address]Tn# [phone] IF AMER Greater than 60 [facility] Comment on above: Order Comment: Campu s: M Performed By: #### L 500.94205, L500.52979, L500.05423, L500.91333 ####[facility] LYTDJZFSNA6336 [place], [place] [address]Ca# [phone] IF non-AFR AMER Greater than [address] [facility] Comment on above: Order Comment: Campu s: M Performed By: #### L 500.15790, L500.95701, L500.45165, L500.72638 ####[facility] VMVYTFPPWT5704 [place], [place] [address]Rr# [phone] GLUCOSE METERon 10-22-2021 Glucose [Mass/Vol] 145 mg/dL High 70-115 [facility] Glucose [Mass/Vol] 255 mg/dL High 70-115 [facility] Glucose [Mass/Vol] 232 mg/dL High 70-115 [facility] Glucose [Mass/Vol] 269 mg/dL High 70-115 [facility] Glucose [Mass/Vol] 249 mg/dL High 70-115 [facility] HPon 10-22-2021 HP Normal [facility] LIPASEon 02-25-2022 Lipase [Catalytic activity/Vol] 18 U/L Normal 12-60 [facility] Comment on above: Order Comment: Campu s: M Result Comment: NOTE NEW NORMAL RANGE DUE TO REAGENT CHANGE Performed By: #### L 500.27955, L500.37230, L500.56983, L500.01666 ####[facility] NOWCIJKJZR9300 [place], [place] [address]Vq# [phone] LIVERon 10-22-2021 Globulin (S) [Mass/Vol] 2.8 g/dL Normal 2.2-4.2 [facility] Comment on above: Order Comment: Campu s: M Performed By: #### L 500.48195, L500.38205, L500.10198, L500.01593 ####[place] [address] [place], [place] [address]Df# [phone] Albumin/Globulin [Mass ratio] 1.54 {ratio} Normal 0.8-2.0 [facility] Comment on above: Order Comment: Campu s: M Performed By: #### L 500.52339, L500.01915, L500.53576, L500.98945 ####[facility] RUYGRMJVOM3885 [place], [place] [address]Lr# [phone] Albumin [Mass/Vol] 4.3 g/dL Normal 3.2-5.0 [facility] Comment on above: Order Comment: Campu s: M Performed By: #### L 500.38732, L500.24355, L500.15985, L500.86116 ####[facility] ESLNKDMAZS6235 [place], [place] [address]Ep# [phone] ALK PHOS 100 U/L Normal 45-117 [facility] Comment on above: Order Comment: Campu s: M Performed By: #### L 500.30114, L500.23998, L500.46123, L500.02304 ####[facility] RMFDLPDNXO2035 [place], [place] [address]Wd# [phone] ALT [Catalytic activity/Vol] 9 U/L Low 13-61 [facility] Comment on above: Order Comment: Campu s: M Result Comment: RESU LTS MAY BE FALSELY DEPRESSED AFTER THE ADMINISTRATION OFSULFASALAZINE AND/OR SULFAPYRIDINE. Performed By: #### L 500.31861, L500.12454, L500.93903, L500.55162 ####[facility] LFOCZQSNEG5261 [place], [place] [address]Ay# [phone] AST [Catalytic activity/Vol] 12 U/L Normal 8-34 [facility] Comment on above: Order Comment: Campu s: M Result Comment: RESU LTS MAY BE FALSELY DEPRESSED AFTER THE ADMINISTRATION OFSULFASALAZINE AND/OR SULFAPYRIDINE. Performed By: #### L 500.86327, L500.28077, L500.10431, L500.73526 ####[facility] AHHJCVQLJA8022 [place], [place] [address]Cg# [phone] BILI DIRECT 0.3 MG/DL Normal 0.00-0.36 [facility] Comment on above: Order Comment: Campu s: M Result Comment: NOTE NEW NORMAL RANGE DUE TO REAGENT CHANGE Performed By: #### L 500.68482, L500.73196, L500.64769, L500.51844 ####[facility] DNDOOUAGVX1044 [place], [place] [address]Ij# [phone] BILI TOTAL 0.80 MG/DL Normal 0.2-1.0 [facility] Comment on above: Order Comment: Campu s: M Performed By: #### L 500.74853, L500.02423, L500.41761, L500.25424 ####[facility] BNTSQSBGUD8121 [place], [place] [address]Az# [phone] Protein [Mass/Vol] 7.1 g/dL Normal 6.0-8.5 [facility] Comment on above: Order Comment: Campu s: M Performed By: #### L 500.95319, L500.06645, L500.31887, L500.69189 ####[facility] XSNQBSOZYH4159 [place], [place] [address]Xm# [phone] [id number] 10-22-2021 SARS-CoV-2 (COVID-19) RNA DANIEL+probe Ql (Unsp spec) Negative Invalid Interpretation Code Negative [facility] Comment on above: Order Comment: Campu s: M Result Comment: RESU LTS CALLED TO ALONZO MORALES/EDAT 0106 10/22/21 BY JHOANA PALMERNegative results do not preclude SARS-CoV-2 infection andshould not be used as the sole basis for treatment or otherpatient management decisions. Negative results must becombined with clinical observation, patient history, andepidemiological information.This test was performed by PCR. Performed By: #### L 770.49284 ####[facility] IMXNRMVPVF2642 [place], [place] [address]Rf# [phone] UA COMPLETEon 10-22-2021 UA UROBILINOGEN Negative Normal NORMAL [facility] Comment on above: Order Comment: Campu s: M Performed By: #### L 600.58003 ####[facility] JOFHBOEDCE1302 [place], [place] [address]Xd# [phone] Color (U) YELLOW Normal [facility] Comment on above: Order Comment: Campu s: M Performed By: #### L 600.64850 ####[facility] NWXKYJRIZN3891 [place], [place] [address]Yj# [phone] Glucose (U) [Mass/Vol] mg/dL Normal NORMAL [facility] Comment on above: Order Comment: Campu s: M Performed By: #### L 600.76631 ####[facility] WKSPDAZRRB0875 [place], [place] [address]Xi# [phone] Mucus Ql (Urine sed) TRACE Normal NEGATIVE [facility] Comment on above: Order Comment: Campu s: M Performed By: #### L 600.69396 ####[facility] KGULLBEYVF9028 [place], [place] [address]Wu# [phone] SQUAMOUS EPIS 2 EPI/HPF Normal 0-5 [facility] Comment on above: Order Comment: Campu s: M Performed By: #### L 600.44244 ####[facility] VHQLQZTNNF4964 [place], [place] [address]Mb# [phone] UA APPEARANCE CLEAR Normal CLEAR [facility] Comment on above: Order Comment: Campu s: M Performed By: #### L 600.25505 ####[facility] TOYQIWFYOZ[address] [place] [address]Wv# [phone] UA BACTERIA NONE Normal NONE [facility] Comment on above: Order Comment: Campu s: M Performed By: #### L 600.65968 ####[facility] GBAUZYXQIH[address] [place] [address]Ei# [phone] UA BILIRUBIN Negative Normal NEGATIVE [facility] Comment on above: Order Comment: Campu s: M Performed By: #### L 600.65310 ####[facility] LVDTEAWRQD[address] [place] [address]Iv# [phone] UA BLOOD SMALL Normal NEGATIVE [facility] Comment on above: Order Comment: Campu s: M Performed By: #### L 600.34519 ####[facility] ZQRSCEYETT[address] [place] [address]Bl# [phone] UA KETONE 80 Normal NEGATIVE [facility] Comment on above: Order Comment: Campu s: M Performed By: #### L 600.04880 ####[facility] [id number] [place] [address]Qk# [phone] UA LK ESTERASE N Normal NEGATIVE [facility] Comment on above: Order Comment: Campu s: M Performed By: #### L 600.53621 ####[facility] [id number] [place] [address]Xu# [phone] UA NITRITE Negative Normal NEGATIVE [facility] Comment on above: Order Comment: Campu s: M Performed By: #### L 600.48303 ####[facility] [id number] [place] [address]Vx# [phone] UA PH 6.0 Normal 5-6 [facility] Comment on above: Order Comment: Campu s: M Performed By: #### L 600.11168 ####[facility] RUHEICOJGZ8173 [place], [place] [address]Dv# [phone] UA PROTEIN 30 Normal NEGATIVE [facility] Comment on above: Order Comment: Campu s: M Performed By: #### L 600.99012 ####[facility] [id number] [place] [address]Wk# [phone] UA RBC NONE Low 0-3 [facility] Comment on above: Order Comment: Campu s: M Performed By: #### L 600.56651 ####[facility] KWCTHPXOKJ[address] [place] [address]Yr# [phone] UA SPEC GRAV 1.023 Normal 1.005-1.030 [facility] Comment on above: Order Comment: Campu s: M Performed By: #### L 600.46071 ####[facility] [id number] [place] [address]Df# [phone] UA WBC 1 WBC/HPF Normal 0-5 [facility] Comment on above: Order Comment: Campu s: M Performed By: #### L 600.40206 ####[facility] PBJPYJAWHP[address] [place] [address]Wp# [phone] VBG PHon 10-22-2021 VBG PH 7.49 MMHG High 7.31-7.41 [facility] Comment on above: Order Comment: Campu s: M Performed By: #### L 100.76126 ####[facility] [id number] [place] [address]Df# [phone] BLOOD CULTUREon 06-09-2021 Bacteria identified Cx Nom (Bld) NO GROWTH AFTER 5 DAYS Normal [facility] Comment on above: Order Comment: Campu s: M Performed By: #### M 050.96005 ####[facility] [id number] [place] [address]Oi# [phone] Bacteria identified Cx Nom (Bld) NO GROWTH AFTER 5 DAYS [facility]: Order Comment: Zach s: M Performed By: #### M [id number] ####[facility] [id number] [place], [place] [address]Rr# [phone] GLUCOSE METERon 06-07-2021 Glucose [Mass/Vol] 44 mg/dL Critically low 70-115 [facility]-05[facility]2021 Bacteria identified Cx Nom (Bld) NO GROWTH AFTER 5 DAYS [facility] Comment on above: Order Comment: Benjiu s: M Performed By: #### M [id number] ####[facility] [id number] [place], [place] [address]Rs# [phone] DISCH.SUMon 06-05-2021 DISCH.SUM [facility] GLUCOSE METERon 06-05-2021 Glucose [Mass/Vol] 104 mg/dL Normal 70-115 [facility] Glucose [Mass/Vol] 83 mg/dL Normal 70-115 [facility] [place] Glucose [Mass/Vol] 105 mg/dL Normal 70-115 [facility] [place] Glucose [Mass/Vol] 177 mg/dL High 70-115 [facility] Glucose [Mass/Vol] 61 mg/dL Low 70-115 [facility] PR[facility].ENDOon 06-05-2021 PROG.ENDO Normal [facility] Progress Note-Endocrinology Normal [facility] BCID PCRon 06-04-2021 BC ACINETOBACTE Not detected Normal NOT DETECTD [facility] Comment on above: Performed By: #### L [id number] ####[facility] [id number] [place], [place] [address]Pt# [phone] BC BETA STREP A Not detected Normal NOT DETECTD [facility] Comment on above: Performed By: #### L [id number] ####[facility] [id number] [place], [place] [address]Ie# [phone] BC BETA STREP B Not detected Normal NOT DETECTD [facility] Comment on above: Performed By: #### L 770. ####[facility] [id number] [place], [place] [address]Ih# [phone] BC C ALBICANS Not detected Normal NOT DETECTD [facility] Comment on above: Performed By: #### L 770. ####[facility] [id number] [place], [place] [address]Rl# [phone] BC C GLABRATA Not detected Normal NOT DETECTD [facility] Comment on above: Performed By: #### L 770. ####[facility] [id number] [place], [place] [address]St# [phone] BC C KRUSEI Not detected Normal NOT DETECTD [facility] Comment on above: Performed By: #### L 770. ####[facility] MRNANXQRDO2650 [place], [place] [address]Em# [phone] BC C PARAPSILOS Not detected Normal NOT DETECTD [facility] Comment on above: Performed By: #### L 770. ####[facility] CJASIHWXKN8988 [place], [place] [address]Yt# [phone] BC C TROPICALIS Not detected Normal NOT DETECTD [facility] Comment on above: Performed By: #### L 770. ####[facility] EUXMJMDPGW3548 [place], [place] [address]Ha# [phone] BC E COLI Not detected Normal NOT DETECTD [facility] Comment on above: Performed By: #### L 770. ####[facility] OFTIKAXHBO0507 [place], [place] [address]Za# [phone] BC ENTER CLOACA Not detected Normal NOT DETECTD [facility] Comment on above: Performed By: #### L 770. ####[facility] RTSWRNVLFA0753 [place], [place] [address]Qe# [phone] BC ENTEROCOCCUS Not detected Normal NOT DETECTD [facility] Comment on above: Performed By: #### L 770.58816 ####[facility] KDMLNIHHNU7038 [place], [place] [address]Ps# [phone] BC H.INFLUENZA Not detected Normal NOT DETECTD [facility] Comment on above: Performed By: #### L 770. ####[facility] SHHATGBXYN5780 [place], [place] [address]Jz# [phone] BC KLEB OXYTOCA Not detected Normal NOT DETECTD [facility] Comment on above: Performed By: #### L 770. ####[facility] LQDMOULUSP6454 [place], [place] [address]Lw# [phone] BC KLEB PNEUMO Not detected Normal NOT DETECTD [facility] Comment on above: Performed By: #### L 770. ####[facility] TIZWJLERTD8502 [place], [place] [address]Zo# [phone] BC KPC Not detected Normal NOT DETECTD [facility] Comment on above: Performed By: #### L 770. ####[facility] DVYSAGJSNA8571 [place], [place] [address]Ll# [phone] BC LISTERIA Not detected Normal NOT DETECTD [facility] Comment on above: Performed By: #### L 770 ####[facility] EKJTFDNGTS8114 [place], [place] [address]Oj# [phone] BC MEC A Not detected Normal NOT DETECTD [facility] Comment on above: Performed By: #### L 770. ####[facility] [id number] [place], [place] [address]Cy# [phone] BC N MENINGITID Not detected Normal NOT DETECTD [facility] Comment on above: Performed By: #### L 770. ####[facility] STFETUQNCX8797 [place], [place] [address]Rv# [phone] BC PROTEUS SP. Not detected Normal NOT DETECTD [facility] Comment on above: Performed By: #### L 770. ####[facility] ZVMYHOJGVH1969 [place], [place] [address]Zf# [phone] BC PSEUDO AERUG Not detected Normal NOT DETECTD [facility] Comment on above: Performed By: #### L 770.46082 ####[facility] AGOCGUWLZN5971 [place], [place] [address]Lm# [phone] BC SERRATIA MAR Not detected Normal NOT DETECTD [facility] Comment on above: Performed By: #### L 770.91695 ####[facility] DPIWVWEPLY9726 [place], [place] [address]Zs# [phone] BC STAPH AUREUS Not detected Normal NOT DETECTD [facility] Comment on above: Performed By: #### L 770.30908 ####[facility] KUMUAFWDJP9371 [place], [place] [address]Jo# [phone] BC STAPH SPE. Not detected Normal NOT DETECTD [facility] Comment on above: Performed By: #### L 770.35620 ####[facility] [id number] [place] [address]Zl# [phone] BC STREP PNEUMO Not detected Normal NOT DETECTD [facility] Comment on above: Performed By: #### L 770.33996 ####[facility] WCAKHWPUAS0860 [place], [place] [address]Ix# [phone] BC STREPTOCOCCU Not detected Normal NOT DETECTD [facility] Comment on above: Performed By: #### L 770.68253 ####[facility] JCUTYBDTIV[address] [place] [address]Yk# [phone] BC VAN A/B Not detected Normal NOT DETECTD [facility] Comment on above: Performed By: #### L 770.22084 ####[facility] [id number] [place], [place] [address]Jh# [phone] ENTEROBACEAE SP Not detected Normal NOT DETECTD [facility] Comment on above: Performed By: #### L 770.95933 ####[facility] VWOKNTMZXH[address] [place] [address]Wv# [phone] BLOOD CULTUREon 06-04-2021 Bacteria identified Cx Nom (Bld) INITIAL POSITIVE BLOOD CULTURE RESULTS CALLED TO MICHELLE RN/8M AND READ BACK BY AT 201206/02/21 BY NANI CARLISLE ORGANISM 1: MICROCOCCUS SP./RELATED GENERA ID TO FOLLOW NOT VIABLE FOR SENSITIVITY Normal [facility] Comment on above: Order Comment: Campu s: M Performed By: #### M 050.46281 ####[facility] MAWJMIKGIZ0014 [place], [place] [address]Ml# [phone] GLUCOSE METERon 06-04-2021 Glucose [Mass/Vol] 161 mg/dL High 70-115 [facility] Glucose [Mass/Vol] 79 mg/dL Normal 70-115 [facility] Glucose [Mass/Vol] 236 mg/dL High 70-115 [facility] Glucose [Mass/Vol] 273 mg/dL High 70-115 [facility] Glucose [Mass/Vol] 221 mg/dL High 70-115 [facility] Glucose [Mass/Vol] 305 mg/dL High 70-115 [facility] PROG IMSon 06-04-2021 PROG IMS Normal [facility] Progress Note-Hospitalist Normal [facility] PROG.ENDOon 06-04-2021 PROG.ENDO Normal [facility] Progress Note-Endocrinology Normal [facility] BMPon 06-03-2021 Anion gap [Moles/Vol] 9 mmol/L Normal 5-16 [facility] Comment on above: Order Comment: Campu s: MMinimal Draw: Y Performed By: #### L 500.54814, L500.76980, L500.51330 ####[facility] VDFYWRXZJO3282 [place], [place] [address]Si# [phone] Calcium [Mass/Vol] 8.5 mg/dL Normal 8.5-10.5 [facility] Comment on above: Order Comment: Campu s: MMinimal Draw: Y Result Comment: NOTE NEW NORMAL RANGE DUE TO REAGENT CHANGE Performed By: #### L 500.49982, L500.49509, L500.54895 ####[facility] RBRCKOFTMH9219 [place], [place] [address]Mw# [phone] Chloride [Moles/Vol] 109 mmol/L High 98-107 [facility] Comment on above: Order Comment: Campu s: MMinimal Draw: Y Performed By: #### L 500.96061, L500.04679, L500.96368 ####[facility] YHWATLNHNJ3639 [place], [place] [address]Kx# [phone] CO2 [Moles/Vol] 23.0 mmol/L Normal 21-32 [facility] Comment on above: Order Comment: Campu s: MMinimal Draw: Y Performed By: #### L 500.68761, L500.95502, L500.18068 ####[facility] OMKKZMMUOP8628 [place], [place] [address]Yj# [phone] Creatinine [Mass/Vol] 0.70 mg/dL Normal 0.510-0.950 [facility] Comment on above: Order Comment: Campu s: MMinimal Draw: Y Result Comment: Cleopatra ents receiving either N-Acetylcysteine (NAC) orMetamizole prior to venipuncture, may have falsely depressedresults. Performed By: #### L 500.97156, L500.10409, L500.39434 ####[facility] IJRTVKZRUW9975 [place], [place] [address]Kl# [phone] Glucose [Mass/Vol] 303 mg/dL High 70-100 [facility] Comment on above: Order Comment: Campu s: MMinimal Draw: Y Result Comment: 70-1 00- Normal Fasting; 100-125 Impaired Fasting; greaterthan 126 on more than one result- Diabetes. ADA guidelines.Results may be falsely elevated after the administration ofSulfapyridine.Results may be falsely depressed after the administration ofSulfasalazine. Performed By: #### L 500.86501, L500.91165, L500.35991 ####[facility] [id number] [place], [place] [address]Iv# [phone] Potassium [Moles/Vol] 4.4 mmol/L Normal 3.5-5.[address] [facility] Comment on above: Order Comment: Campu s: MMinimal Draw: Y Result Comment: Slig ht Hemolysis, Result may be affected. Performed By: #### L 500.66834, L500.39695, L500.69399 ####[facility] LPQZLPKJFC8774 [place], [place] [address]Ln# [phone] Sodium [Moles/Vol] 141 mmol/L Normal 136-145 [facility] Comment on above: Order Comment: Campu s: MMinimal Draw: Y Performed By: #### L 500.64020, L500.70585, L500.22464 ####[facility] APSBGXCECV5855 [place], [place] [address]Cn# [phone] Urea nitrogen [Mass/Vol] 16 mg/dL Normal 7-26 [facility] Comment on above: Order Comment: Campu s: MMinimal Draw: Y Performed By: #### L 500.32116, L500.59226, L500.67041 ####[facility] BNHTJCKXHQ1358 [place], [place] [address]Cu# [phone] Urea nitrogen/Creatinine [Mass ratio] 23 mg/mg Normal 15-24 [facility] Comment on above: Order Comment: Campu s: MMinimal Draw: Y Performed By: #### L 500.69570, L500.78332, L500.93542 ####[facility] KXQQDTYNRF3053 [place], [place] [address]Lj# [phone] CBC W/DIFFon 06-03-2021 BASO ABS 0.00 K/CU MM Normal 0-0.2 [facility] Comment on above: Order Comment: Campu s: MMinimal Draw: Y Performed By: #### L 200.30338 ####[facility] GLRMGKBDOY2087 [place], [place] [address]Uo# [phone] Basophils/100 WBC (Bld) 0.2 % Normal 0-2 [facility] Comment on above: Order Comment: Campu s: MMinimal Draw: Y Performed By: #### L 200.06400 ####[facility] [id number] [place] [address]Jq# [phone] EOS ABS 0.00 K/CU MM Normal 0-0.5 [facility] Comment on above: Order Comment: Campu s: MMinimal Draw: Y Performed By: #### L 200.27800 ####[facility] RUMIVXRAVT[address] [place] [address]Ak# [phone] Eosinophils/100 WBC (Bld) 0.3 % Normal 0-5 [facility] Comment on above: Order Comment: Campu s: MMinimal Draw: Y Performed By: #### L 200.52461 ####[address] [address]Do# [phone] Erythrocyte distribution width (RBC) [Ratio] 15.1 % High 11-14.5 [facility] Comment on above: Order Comment: Campu s: MMinimal Draw: Y Performed By: #### L 200.14122 ####[facility] KTNUFGWQNW[address] [place] [address]Yn# [phone] Hematocrit (Bld) [Volume fraction] 29.3 % Low 35.0-47.0 [facility] Comment on above: Order Comment: Campu s: MMinimal Draw: Y Performed By: #### L 200.84486 ####[facility] JICHAHIELB[address] [place] [address]Jb# [phone] Hemoglobin (Bld) [Mass/Vol] 9.4 g/dL Low 11.5-15.5 [facility] Comment on above: Order Comment: Campu s: MMinimal Draw: Y Result Comment: Repe ated and verified. Performed By: #### L 200.73410 ####[facility] EJTVOXQIXK[address] [place] [address]Hn# [phone] IMMATR GRAN ABS 0.10 K/CU MM Normal Less than 2 [facility] Comment on above: Order Comment: Campu s: MMinimal Draw: Y Performed By: #### L 200.77663 ####[facility] IIOYLXKUTA8247 [place], [place] [address]Bu# [phone] IMMATURE GRAN % 0.8 % Normal Less than 2 [facility] Comment on above: Order Comment: Campu s: MMinimal Draw: Y Performed By: #### L 200.31696 ####[facility] MIUIQADAII[address] [place], [place] [address]Ph# [phone] LYMPH ABS 2.90 K/CU MM Normal 0.9-4.4 [facility] Comment on above: Order Comment: Campu s: MMinimal Draw: Y Performed By: #### L 200.81788 ####[address] [address]Vk# [phone] Lymphocytes/100 WBC (Bld) 25.7 % Normal 20-40 [facility] Comment on above: Order Comment: Campu s: MMinimal Draw: Y Performed By: #### L 200.85291 ####[facility] PCEKQRXYJR[address] [place], [place] [address]Ph# [phone] MCHC (RBC) [Mass/Vol] 32.1 g/dL Normal 32.0-36.[address] [facility] Comment on above: Order Comment: Campu s: MMinimal Draw: Y Performed By: #### L 200.90496 ####[facility] CYHGDYXAUP[address] [place] [address]Tc# [phone] MCV (RBC) [Entitic vol] 87.5 fL Normal 80.0-99.0 [facility] Comment on above: Order Comment: Campu s: MMinimal Draw: Y Performed By: #### L 200.43983 ####[facility] KXDFFRKPXG[address] [place] [address]Ol# [phone] MONO ABS 0.50 K/CU MM Normal 0.1-1.1 [facility] Comment on above: Order Comment: Campu s: MMinimal Draw: Y Performed By: #### L 200.18912 ####[facility] QJBYJXHYPG6049 [place], [place] [address]Vx# [phone] Monocytes/100 WBC (Bld) 4.3 % Normal 2-10 [facility] Comment on above: Order Comment: Campu s: MMinimal Draw: Y Performed By: #### L 200.82392 ####[facility] CRZOJQKAUM[address] [place] [address]Di# [phone] NEUTROPHIL ABS 7.70 K/CU MM Normal 2.0-8.3 [facility] Comment on above: Order Comment: Campu s: MMinimal Draw: Y Performed By: #### L 200.97293 ####[facility] KDCCDLZDIK[address] [place] [address]Ns# [phone] Neutrophils/100 WBC (Bld) 68.7 % Normal 45-75 [facility] Comment on above: Order Comment: Campu s: MMinimal Draw: Y Performed By: #### L 200.05493 ####[facility] [id number] [place] [address]Bm# [phone] Nucleated RBC/100 WBC (Bld) [Ratio] 0.0 % Normal Less than 1 [facility] Comment on above: Order Comment: Campu s: MMinimal Draw: Y Performed By: #### L 200.92743 ####[facility] RISXIYAHNH[address] [place] [address]Hp# [phone] Platelet mean volume (Bld) [Entitic vol] 11.6 fL Normal 9.4-12.4 [facility] Comment on above: Order Comment: Campu s: MMinimal Draw: Y Performed By: #### L 200.96327 ####[facility] BYWQPYONMU4124 [place], [place] [address]Zm# [phone] PLT 166 K/CU MM Normal 150-450 [facility] Comment on above: Order Comment: Campu s: MMinimal Draw: Y Performed By: #### L 200.14167 ####[facility] PDALMXWLMF7507 [place], [place] [address]Tu# [phone] RBC 3.35 M/CU MM Low 3.90-5.30 [facility] Comment on above: Order Comment: Campu s: MMinimal Draw: Y Performed By: #### L 200.87128 ####[facility] MZLAVWMEOK9425 [place], [place] [address]Si# [phone] WBC 11.3 K/CUMM High 4.5-11.0 [facility] Comment on above: Order Comment: Campu s: MMinimal Draw: Y Performed By: #### L 200.85092 ####[facility] CATEYYHDNZ2106 [place], [place] [address]Fj# [phone] GFR ESTon 06-03-2021 IF AMER Greater than [address] [facility] Comment on above: Order Comment: Campu s: MMinimal Draw: Y Performed By: #### L 500.37431, L500.70771, L500.84607 ####[facility] IMAWFTOVOG5835 [place], [place] [address]Ke# [phone] IF non-AFR AMER Greater than [address] [facility] Comment on above: Order Comment: Campu s: MMinimal Draw: Y Performed By: #### L 500.48873, L500.27945, L500.92548 ####[facility] HDALYNXVDP2507 [place], [place] [address]Rb# [phone] GLUCOSE METERon 06-03-2021 Glucose [Mass/Vol] 227 mg/dL High 70-115 [facility] Glucose [Mass/Vol] 182 mg/dL High 70-115 [facility] Glucose [Mass/Vol] 299 mg/dL High 70-115 [facility] PR[facility]MSon 06-03-2021 PROG IMS Normal [facility]ist Normal [facility] PROG.ENDOon 06-03-2021 PROG.ENDO Normal [facility]Endocrinology Normal [facility] TSHon 06-03-2021 TSH 6.118 UIU/ML High 0.358-3.740 [facility] Comment on above: Order Comment: Campu s: MMinimal Draw: Y Result Comment: 3rd generation ultra sensitive TSH Performed By: #### L 500.65443, L500.29310, L500.26207 ####[facility] GIIJVPTYRC4607 [place], [place] [address]Iw# [phone] CONS.ENDOon 06-02-2021 CONS.ENDO Normal [facility] CONSULTATION-ENDOCRINO LOGY Normal [facility] GLUCOSE METERon 06-02-2021 Glucose [Mass/Vol] 372 mg/dL High 70-115 [facility] Glucose [Mass/Vol] 255 mg/dL High 70-115 [facility] Glucose [Mass/Vol] 210 mg/dL High 70-115 [facility] Glucose [Mass/Vol] 205 mg/dL High 70-115 [facility] PR[facility] IMSon 06-02-2021 PROG IMS Normal [facility] Progress Note-Hospitalist Normal [facility] BMPon 06-01-2021 Anion gap [Moles/Vol] 23 mmol/L High 5-16 [facility] Comment on above: Order Comment: Campu s: M Performed By: #### L 500.14791, L500.16427 ####[facility] ETTJJTOFBI0760 [place], [place] [address]Rw# [phone] Calcium [Mass/Vol] 9.4 mg/dL Normal 8.5-10.5 [facility] Comment on above: Order Comment: Campu s: M Result Comment: NOTE NEW NORMAL RANGE DUE TO REAGENT CHANGE Performed By: #### L 500.74461, L500.25921 ####[facility] AEGYTFLHCS5765 [place], [place] [address]Cn# [phone] Chloride [Moles/Vol] 103 mmol/L Normal 98-107 [facility] Comment on above: Order Comment: Campu s: M Performed By: #### L 500.02082, L500.81548 ####[facility] TKSWMOOLNI0328 [place], [place] [address]Lc# [phone] CO2 [Moles/Vol] 11.0 mmol/L Low 21-32 [facility] Comment on above: Order Comment: Benjiu s: M Result Comment: Delt a check reviewed Performed By: #### L 500.53132, L500.53241 ####[facility] CVMQBLQEOI7000 [place], [place] [address]Om# [phone] Creatinine [Mass/Vol] 0.71 mg/dL Normal 0.510-0.950 [facility] Comment on above: Order Comment: Benjiu s: M Result Comment: Cleopatra ents receiving either N-Acetylcysteine (NAC) orMetamizole prior to venipuncture, may have falsely depressedresults. Performed By: #### L 500.16920, L5.46932 ####[facility] WWRDIEHHBM2033 [place], [place] [address]Wp# [phone] Glucose [Mass/Vol] 447 mg/dL High 70-100 [facility] Comment on above: Order Comment: Zach s: M Result Comment: 70-1 00- Normal Fasting; 100-125 Impaired Fasting; greaterthan 126 on more than one result- Diabetes. ADA guidelines.Results may be falsely elevated after the administration ofSulfapyridine.Results may be falsely depressed after the administration ofSulfasalazine. Performed By: #### L 500.04610, L5.12364 ####[facility] LXPWGCEHID9137 [place], [place] [address]Ju# [phone] Potassium [Moles/Vol] 5.2 mmol/L High 3.5-5.1 [facility] Comment on above: Order Comment: Benjiu s: M Result Comment: Slig ht Hemolysis, Result may be affected. Performed By: #### L 500.18469, L500.61781 ####[facility] TVQSXECAMX7159 [place], [place] [address]Uf# [phone] Sodium [Moles/Vol] 137 mmol/L Normal 136-145 [facility] Comment on above: Order Comment: Campu s: M Performed By: #### L 500.78555, L500.91914 ####[facility] FQZOUMRKBM8205 [place], [place] [address]Yp# [phone] Urea nitrogen [Mass/Vol] 20 mg/dL Normal 7-26 [facility] Comment on above: Order Comment: Campu s: M Result Comment: Slig ht Hemolysis, Result may be affected. Performed By: #### L 500.58856, L500.72209 ####[facility] FQHGCESXPC3995 [place], [place] [address]Iq# [phone] Urea nitrogen/Creatinine [Mass ratio] 28 mg/mg High 15-24 [facility] Comment on above: Order Comment: Campu s: M Performed By: #### L 500.56736, L500.87407 ####[facility] [address]ACZ[address] [place] [address]Qq# [phone] Stacie 06-01-2021 EMERGENCY PHYSICIAN REPORT This is a preliminary report only, as the practitioner review and authentication has not occurred. Normal [facility] ER Normal [facility] GFR ESTon 06-01-2021 IF AMER Greater than 60 [facility] Comment on above: Order Comment: Campu s: M Performed By: #### L 500.09289, L500.50735 ####[facility] [id number] [place] [address]Vs# [phone] IF non-AFR AMER Greater than 60 [facility] Comment on above: Order Comment: Campu s: M Performed By: #### L 500.85205, L500.75823 ####[facility] LTWSYHNION2589 [place], [place] [address]Lo# [phone] GLUCOSE METERon 06-01-2021 Glucose [Mass/Vol] 384 mg/dL High 70-115 [facility] Glucose [Mass/Vol] 322 mg/dL High 70-115 [facility] Glucose [Mass/Vol] 550 mg/dL Critically high 70-115 M [facility] GLUCOSE METER > 600 Critically high 70-115 [facility] Glucose [Mass/Vol] 450 mg/dL High 70-115 [facility] HP.IMS.ADMon 06-01-2021 Admission-H&P Normal [facility] HP.[facility].ADM Normal [facility] LACTIC ACIDon 06-01-2021 Lactate [Moles/Vol] 3.82 mmol/L High 0.40-2.00 [facility] Comment on above: Performed By: #### L 550.78464 ####[facility] LFRAUYDOXI0766 [place], [place] [address]Ii# [phone] PROCAL Aon 06-01-2021 PROCAL A 2.89 NG/ML High 0-0.50 [facility] Comment on above: Order Comment: Zach [...] results obtained fromthe [employer] platform vs the [employer] platform(previous).NOTE NEW NORMAL RANGE DUE TO REAGENT CHANGE Performed By: #### L 550.81494 ####[facility] [id number] [place], [place] [address]Vn# [phone] PROG IMSon 06-01-2021 PROG IMS Normal [facility] Progress Note-Hospitalist Normal [facility] UR DRUG ABUSEon 06-01-2021 UR AMPH Negative Normal Ujeric=1134 [facility] Comment on above: Performed By: #### L 600.06786 ####[facility] [id number] [place], [place] [address]Ni# [phone] UR JARON Negative Normal Mwwmdl=780 [facility] Comment on above: Performed By: #### L 600.61814 ####[facility] [id number] [place], [place] [address]Fe# [phone] UR TAMRA Negative Normal Rfazbe=528 [facility] Comment on above: Performed By: #### L 600.55700 ####[facility] IPWHQUCXRQ[address] [place] [address]Zc# [phone] UR MONTY/THC Positive Normal Cutoff=50 [facility] Comment on above: Performed By: #### L 600.01351 ####[address] [address]Al# [phone] UR ALISHA Negative Normal Dlkdsq=685 [facility] Comment on above: Performed By: #### L 600.26154 ####[facility] [id number] [place] [address]Ri# [phone] UR OPIAT Positive Normal Zwpcrp=124 [facility] Comment on above: Performed By: #### L 600.66080 ####[facility] [id number] [place] [address]Eo# [phone] UR PCP Negative Normal Cutoff=25 [facility] Comment on above: Performed By: #### L 600.18885 ####[facility] [id number] [place] [address]Es# [phone] DRAB COMMENT Normal [facility] Comment on above: Result Comment: [facility] results are qualitative, providing apreliminary analytical result. A positive result for anassay should be confirmed by another nonimmunological,reference method. A negative result indicates that theassay material is either not present, or present at levelsbelow the cutoff threshold for the analytical method range(AMR) validation. Performed By: #### L 600.42091 ####[facility] [id number] [place], [place] [address]Qp# [phone] ABGPon 05-31-2021 ABG BE -8.6 MML/L Low -2.0-2.0 Good [facility] Comment on above: Order Comment: Campu s: M Performed By: #### L 100.57517 ####[facility] CIUTDQRXEE9253 [place], [place] [address]Cv# [phone] ABG COHBA 0.4 % Normal 0-10 [facility] Comment on above: Order Comment: Campu s: M Performed By: #### L 100.14937 ####[facility] WYPZRFHQNY[address] [place] [address]Vf# [phone] ABG MET 0.3 % Low 0.4-1.5 [facility] Comment on above: Order Comment: Campu s: M Performed By: #### L 100.47593 ####[facility] KGAHHRTFJR[address] [place] [address] 27[address]Zq# [phone] ABG O2 CAPACITY 17.9 mL/dL Normal [facility] Comment on above: Order Comment: Campu s: M Performed By: #### L 100.37119 ####[facility] XPLBSIAPKA8341 [place], [place] [address]Sd# [phone] ABG O2 CONTENT 17.2 mL/dL Normal 15.7-21.6 [facility] Comment on above: Order Comment: Campu s: M Performed By: #### L 100.81257 ####[facility] OGBBFNMQMR9045[address] [place] [address]Kh# [phone] ABG O2HB SAT 93.9 % Normal 90-100 [facility] Comment on above: Order Comment: Campu s: M Performed By: #### L 100.32529 ####[facility] JTZZIJFJQO[address] [place] [address] 497[address]Mt# [phone] ABG PCO2 34.2 MMHG Low 35-45 [facility] Comment on above: Order Comment: Campu s: M Performed By: #### L 100.74516 ####[facility] HCUDHSWCLL5246 [place], [place] [address]Cm# [phone] ABG PH 7.31 Low 7.35-7.45 [facility] Comment on above: Order Comment: Campu s: M Performed By: #### L 100.09240 ####[facility] ZXWIUHKFGS7005 [place], [place] [address]Sn# [phone] ABG PO2 85.7 MMHG Normal 80-100 [facility] Comment on above: Order Comment: Campu s: M Performed By: #### L 100.33205 ####[address] [address]Ut# [phone] ABG REDUCED HGB 5.4 % High 0-5 [facility] Comment on above: Order Comment: Campu s: M Performed By: #### L 100.43873 ####[facility] YQKPLTJHSQ[address] [place] [address]Ur# [phone] GEM TEST Positive Normal [facility] Comment on above: Order Comment: Campu s: M Performed By: #### L 100.73814 ####[address] [address]Oe# [phone] Body temperature 98.6 [degF] Normal [facility] Comment on above: Order Comment: Campu s: M Performed By: #### L 100.96092 ####[facility] IKBUPXOAMY1924 [place], [place] [address]Xx# [phone] EQUIPMENT ROOM AIR Normal [facility] Comment on above: Order Comment: Campu s: M Performed By: #### L 100.73709 ####[facility] SMATQVWLNN5469 [place], [place] [address]Dl# [phone] FIO2 21 % Normal [facility] Comment on above: Order Comment: Campu s: M Performed By: #### L 100.02150 ####[facility] YWFOITCKKK[address] [place] [address] [place] [address]Yy# [phone] HCO3 (Bld) [Moles/Vol] 16.8 mmol/L Low 22-26 M [facility] Comment on above: Order Comment: Campu s: M Performed By: #### L 100.88092 ####[facility] BTALNMJQHZ[address] [place] [address]Qc# [phone] Hemoglobin (Bld) [Mass/Vol] 13.0 g/dL Normal 10-16 [facility] Comment on above: Order Comment: Campu s: M Performed By: #### L 100.50111 ####[address] [address]Ir# [phone] SAMPLE SITE L RADIAL Normal [facility] Comment on above: Order Comment: Campu s: M Performed By: #### L 100.33992 ####[address] [address]Kp# [phone] SAMPLE TYPE ARTERIAL Normal [facility] Comment on above: Order Comment: Campu s: M Performed By: #### L 100.01970 ####[facility] GWMSYRZLJT[address] [place] [address]Fv# [phone] ABGPEGLAon 05-31-2021 ABG BE -10.1 MML/L Low -2.0-2.0 [facility] Comment on above: Order Comment: Campu s: M Performed By: #### L 100.64318 ####[facility] IAAVPQYKCF[address] [place] [address]Bc# [phone] ABG COHBA 0.4 % Normal 0-10 [facility] Comment on above: Order Comment: Campu s: M Performed By: #### L 100.75737 ####[facility] YUUYQXVIPH[address] [place] [address]Jh# [phone] ABG GLU 317.0 MG/DL High 60-80 [facility] Comment on above: Order Comment: Campu s: M Performed By: #### L 100.11210 ####[facility] LZKDECULVS9551 [place], [place] [address]Hv# [phone] ABG MET 0.3 % Low 0.4-1.5 [facility] Comment on above: Order Comment: Benjiu s: M Performed By: #### L 100.17085 ####[facility] CDLHVRLANE8547 [place], [place] [address]Ha# [phone] ABG O2 CAPACITY 15.6 mL/dL Normal [facility] Comment on above: Order Comment: Campu s: M Performed By: #### L 100.37287 ####[address] [address]Rt# [phone] ABG O2 CONTENT 11.1 mL/dL Low 15.7-21.6 [facility] Comment on above: Order Comment: Campu s: M Performed By: #### L 100.08774 ####[facility] XVMCKYNNLI[address] [place] [address]Sp# [phone] ABG O2HB SAT 69.7 % Critically low 90-100 [facility] Comment on above: Order Comment: Benjiu s: M Performed By: #### L 100.36743 ####[address] [address]Dr# [phone] ABG PCO2 19.0 MMHG Critically low 35-45 [facility] Comment on above: Order Comment: Campu s: M Result Comment: CRIT ICAL VALUE(S) VERIFIED AND HAND DELIVERED TO AND READBACK BY DR CORTES AT 1829 05/31/21 BY ADAM CHOE Performed By: #### L 100.80570 ####[facility] KIVSVBBFIS[address] [place] [address]Ch# [phone] ABG PH 7.43 Normal 7.35-7.45 [facility] Comment on above: Order Comment: Campu s: M Performed By: #### L 100.63334 ####[facility] THEYNMRYTX[address] [place] [address]To# [phone] ABG PO2 37.4 MMHG Critically low 80-100 [facility] Comment on above: Order Comment: Campu s: M Performed By: #### L 100.19580 ####[facility] YNNZBJNIXC6989 [place], [place] [address]Vq# [phone] ABG REDUCED HGB 29.6 % Critically high 0-5 [facility] Comment on above: Order Comment: Campu s: M Performed By: #### L 100.55000 ####[facility] YDLWPXUCSD[address] [place] [address]Di# [phone] GEM TEST N/A Normal [facility] Comment on above: Order Comment: Campu s: M Performed By: #### L 100.77344 ####[address] [address]Gl# [phone] Body temperature 98.6 [degF] Normal [facility] Comment on above: Order Comment: Campu s: M Performed By: #### L 100.00702 ####[facility] NKNBJLFXFQ[address] [place] [address]Yc# [phone] EQUIPMENT ROOM AIR Normal [facility] Comment on above: Order Comment: Campu s: M Performed By: #### L 100.83767 ####[facility] SKOIGVQXUB[address] [place] [address]Sv# [phone] HCO3 (Bld) [Moles/Vol] 12.2 mmol/L Low 22-26 [facility] Comment on above: Order Comment: Campu s: M Performed By: #### L 100.96133 ####[facility] DNSPUKXNAY[address] [place] [address]Ny# [phone] Hemoglobin (Bld) [Mass/Vol] 11.3 g/dL Normal 10-16 [facility] Comment on above: Order Comment: Campu s: M Performed By: #### L 100.01323 ####[facility] KSDQCBQZDI4[address] [place] [address]Bx# [phone] IONIZED CA 0.95 MMOL/L Low 1.13-1.32 [facility] Comment on above: Order Comment: Campu s: M Performed By: #### L 100.21380 ####[facility] RMGOCQLNBY4262 [place], [place] [address]Lo# [phone] LACTATE BLOOD 2.01 MMOL/L High 0.40-2.00 [facility] Comment on above: Order Comment: Campu s: M Performed By: #### L 100.01008 ####[facility] KQNAKPBHPA[address] [place] [address]Eg# [phone] Potassium [Moles/Vol] 2.7 mmol/L Critically low 3.5-5.0 [facility] Comment on above: Order Comment: Campu s: M Performed By: #### L 100.60601 ####[facility] VAJMANXTUN[address] [place], [place] [address]Ph# [phone] RESP. RATE 30 Normal [facility] Comment on above: Order Comment: Campu s: M Performed By: #### L 100.01994 ####[facility] FICQMQQOEM[address] [place] [address]Ou# [phone] SAMPLE SITE R BRACHIAL Normal [facility] Comment on above: Order Comment: Campu s: M Performed By: #### L 100.69421 ####[facility] LKIFPVMATV[address] [place] [address]Ei# [phone] SAMPLE TYPE ARTERIAL Normal [facility] Comment on above: Order Comment: Campu s: M Performed By: #### L 100.82415 ####[facility] PZJCXIFASL[address] [place] [address]Bx# [phone] Sodium [Moles/Vol] 140 mmol/L Normal 136-148 [facility] Comment on above: Order Comment: Campu s: M Performed By: #### L 100.19267 ####[facility] XOMDWYHURE[address] [place] [address] 158[address]Aq# [phone] BMPon 05-31-2021 Anion gap [Moles/Vol] 16 mmol/L Normal 5-[address] [facility] Comment on above: Order Comment: Campu s: M Performed By: #### L 500.06621, L500.37171, L500.97260, L500.29420 ####[facility] MJKVLWRDFE8963 [place], [place] [address]Rn# [phone] Calcium [Mass/Vol] 9.9 mg/dL Normal 8.5-10.5 [facility] Comment on above: Order Comment: Campu s: M Result Comment: NOTE NEW NORMAL RANGE DUE TO REAGENT CHANGE Performed By: #### L 500.38148, L500.43820, L500.92329, L500.77494 ####[facility] TSXLIFNTJN1230 [place], [place] [address]Wu# [phone] Chloride [Moles/Vol] 105 mmol/L Normal 98-107 [facility] Comment on above: Order Comment: Campu s: M Performed By: #### L 500.24075, L500.46977, L500.88645, L500.00014 ####[facility] SXAPRPJRQE3373 [place], [place] [address]Fw# [phone] CO2 [Moles/Vol] 16.0 mmol/L Low 21-32 [facility] Comment on above: Order Comment: Campu s: M Performed By: #### L 500.99461, L500.04998, L500.10122, L500.08704 ####[facility] PGEBBOZECJ0903 [place], [place] [address]Hk# [phone] Creatinine [Mass/Vol] 0.63 mg/dL Normal 0.510-0.950 [facility] Comment on above: Order Comment: Campu s: M Result Comment: Cleopatra ents receiving either N-Acetylcysteine (NAC) orMetamizole prior to venipuncture, may have falsely depressedresults. Performed By: #### L 500.52177, L500.55146, L500.58587, L500.81730 ####[facility] NPUAPHNKYH1205 [place], [place] [address]Qy# [phone] Glucose [Mass/Vol] 422 mg/dL High 70-100 [facility] Comment on above: Order Comment: Campu s: M Result Comment: 70-1 00- Normal Fasting; 100-125 Impaired Fasting; greaterthan 126 on more than one result- Diabetes. ADA guidelines.Results may be falsely elevated after the administration ofSulfapyridine.Results may be falsely depressed after the administration ofSulfasalazine. Performed By: #### L 500.21980, L500.72308, L500.69746, L500.46997 ####[facility] EQGLMJGCJQ2352 [place], [place] [address]Aj# [phone] Potassium [Moles/Vol] 4.4 mmol/L Normal 3.5-5.[address] [facility] Comment on above: Order Comment: Campu s: M Result Comment: Slig ht Hemolysis, Result may be affected. Performed By: #### L 500.78829, L500.13646, L500.85319, L500.61325 ####[facility] FYUAQUVBUL6887 [place], [place] [address]Ho# [phone] Sodium [Moles/Vol] 137 mmol/L Normal 136-145 [facility] Comment on above: Order Comment: Campu s: M Performed By: #### L 500.65853, L500.92271, L500.48678, L500.34851 ####[facility] JSHYRNJCDD1733 [place], [place] [address]At# [phone] Urea nitrogen [Mass/Vol] 17 mg/dL Normal 7-26 [facility] Comment on above: Order Comment: Campu s: M Performed By: #### L 500.06868, L500.16604, L500.57360, L500.24364 ####[facility] GTTVNKGYNE2288 [place], [place] [address]Dx# [phone] Urea nitrogen/Creatinine [Mass ratio] 27 mg/mg High 15-24 [facility] Comment on above: Order Comment: Campu s: M Performed By: #### L 500.45620, L500.23159, L500.05188, L500.22018 ####[facility] DBNZJLPCYZ2061 [place], [place] [address]Ra# [phone] CBC W/DIFFon 05-31-2021 BASO ABS 0.00 K/CU MM Normal 0-0.2 [facility] Comment on above: Order Comment: Campu s: M Performed By: #### L 200.15617 ####[facility] FIGOZSINYZ[address] [place], [place] [address]Ph# [phone] Basophils/100 WBC (Bld) 0.2 % Normal 0-2 [facility] Comment on above: Order Comment: Campu s: M Performed By: #### L 200.75721 ####[facility] OWYVZKZOHS[address] [place], [place] [address]Ph# [phone] EOS ABS 0.00 K/CU MM Normal 0-0.5 [facility] Comment on above: Order Comment: Campu s: M Performed By: #### L 200.35491 ####[facility] UBKDPPULND[address] [place] [address] 6[address]Tk# [phone] Eosinophils/100 WBC (Bld) 0.0 % Normal 0-5 [facility] Comment on above: Order Comment: Campu s: M Performed By: #### L 200.14490 ####[facility] XYSLYAYQTK[address] [place], [place] [address]Ph# [phone] Erythrocyte distribution width (RBC) [Ratio] 14.1 % Normal 11-14.5 [facility] Comment on above: Order Comment: Campu s: M Performed By: #### L 200.19156 ####[facility] MTMJOPFVMT[address] [place] [address]Ld# [phone] Hematocrit (Bld) [Volume fraction] 39.5 % Normal 35.0-47.0 [facility] Comment on above: Order Comment: Campu s: M Performed By: #### L 200.67131 ####[facility] LFELLYDMGX5231 [place] [address]Ph# [phone] Hemoglobin (Bld) [Mass/Vol] 13.1 g/dL Normal 11.5-15.5 [facility] Comment on above: Order Comment: Campu s: M Performed By: #### L 200.46140 ####[facility] LUTUFFSLWY[address] [place], [place] [address]Ph# [phone] IMMATR GRAN ABS 0.20 K/CU MM Normal Less than 2 [facility] Comment on above: Order Comment: Campu s: M Performed By: #### L 200.36826 ####[place] [address]Ph# [phone] IMMATURE GRAN % 0.8 % Normal Less than 2 [facility] Comment on above: Order Comment: Campu s: M Performed By: #### L 200.44335 ####[facility] BOQQVUZFJS[address] [place], [place] [address]Ph# [phone] LYMPH ABS 1.10 K/CU MM Normal 0.9-4.4 [facility] Comment on above: Order Comment: Campu s: M Performed By: #### L 200.16284 ####[facility] NNBVMRHPZT[address]357[address] [place], [place] [address]Ph# [phone] Lymphocytes/100 WBC (Bld) 4.7 % Low 20-40 [facility] Comment on above: Order Comment: Campu s: M Performed By: #### L 200.61189 ####[facility] DHGIBPESKT443[address] [place], [place] [address]Ph# [phone] MCHC (RBC) [Mass/Vol] 33.2 g/dL Normal 32.0-36.[address] [facility] Comment on above: Order Comment: Campu s: M Performed By: #### L 200.51773 ####[facility] UYSYZRKHOH96[address] [place], [place] [address]Ph# [phone] MCV (RBC) [Entitic vol] 84.9 fL Normal 80.0-99.0 [facility] Comment on above: Order Comment: Campu s: M Performed By: #### L 200.05120 ####[facility] DQEMESXUXT7006 [place], [place] [address]Ty# [phone] MONO ABS 0.40 K/CU MM Normal 0.1-1.1 [facility] Comment on above: Order Comment: Campu s: M Performed By: #### L 200.38679 ####[facility] KERABDAERW[address] [place], [place] [address]Ph# [phone] Monocytes/100 WBC (Bld) 1.8 % Low 2-10 [facility] Comment on above: Order Comment: Campu s: M Performed By: #### L 200.23322 ####[facility] NFTTRSIVGX64[address] [place], [place] [address]Ph# [phone] NEUTROPHIL ABS 20.90 K/CU MM High 2.0-8.3 [facility] Comment on above: Order Comment: Campu s: M Performed By: #### L 200.59142 ####[facility] AXTJVHVPRN[address] [place] [address] 465[address]Ec# [phone] Neutrophils/100 WBC (Bld) 92.5 % High 45-75 [facility] Comment on above: Order Comment: Campu s: M Performed By: #### L 200.34532 ####[facility] LYCQIOUQUQ[address] [place], [place] [address]Ph# [phone] Nucleated RBC/100 WBC (Bld) [Ratio] 0.0 % Normal Less than 1 [facility] Comment on above: Order Comment: Campu s: M Performed By: #### L 200.27515 ####[facility] CKXPQZIUOK[address] [place] [address] 9[address]Qv# [phone] Platelet mean volume (Bld) [Entitic vol] 12.4 fL Normal 9.4-12.4 [facility] Comment on above: Order Comment: Campu s: M Performed By: #### L 200.44386 ####[facility] CLNCDCWBLJ4033 [place], [place] [address]Ns# [phone] PLT 211 K/CU MM Normal 150-450 [facility] Comment on above: Order Comment: Campu s: M Performed By: #### L 200.09182 ####[facility] VYVQCFUEXF3857 [place], [place] [address]Wi# [phone] RBC 4.65 M/CU MM Normal 3.90-5.30 [facility] Comment on above: Order Comment: Campu s: M Performed By: #### L 200.75357 ####[facility] XOEAUFDQUI3897 [place], [place] [address]Bf# [phone] WBC 22.6 K/CUMM High 4.5-11.0 [facility] Comment on above: Order Comment: Campu s: M Performed By: #### L 200.02182 ####[facility] GJEUCRGJAL[address] [place] [address]Na# [phone] CT ABD/PEL W IV CONTRAST ONL Yon 05-31-2021 CT ABD/PEL W IV CONTRAST ONLY Normal [facility] GFR ESTon 05-31-2021 IF AMER Greater than [address] [facility] Comment on above: Order Comment: Campu s: M Performed By: #### L 500.96011, L500.22645, L500.19711, L500.81083 ####[facility] VNUWOHYJLT6379 [place], [place] [address]Gu# [phone] IF non-AFR AMER Greater than [address] [facility] Comment on above: Order Comment: Campu s: M Performed By: #### L 500.27588, L500.91228, L500.99837, L500.02421 ####[facility] SPSVQEFNHS9816 [place], [place] [address]Sp# [phone] GLUCOSE METERon 05-31-2021 Glucose [Mass/Vol] 405 mg/dL High 70-115 [facility] LACTATE BLOODon 05-31-2021 LACTATE BLOOD 3.32 MMOL/L High 0.40-2.00 [facility] Comment on above: Order Comment: Campu s: M Performed By: #### L 550.38215 ####[facility] JBAJBAWCVS7497 [place], [place] [address]Pf# [phone] LIPASEon 05-31-2021 Lipase [Catalytic activity/Vol] 18 U/L Normal 12-60 [facility] Comment on above: Order Comment: Campu s: M Result Comment: NOTE NEW NORMAL RANGE DUE TO REAGENT CHANGE Performed By: #### L 500.94741, L500.68226, L500.58225, L500.42012 ####[facility] WHKZDVDPLR0797 [place], [place] [address]Gf# [phone] LIVERon 05-31-2021 Albumin [Mass/Vol] 4.3 g/dL Normal 3.2-5.0 [facility] Comment on above: Order Comment: Campu s: M Performed By: #### L 500.83677, L500.26654, L500.41608, L500.71049 ####[facility] IJBMDBDCLM7706 [place], [place] [address]Na# [phone] Albumin/Globulin [Mass ratio] 1.4 {ratio} Normal 0.8-2.0 [facility] Comment on above: Order Comment: Campu s: M Performed By: #### L 500.35165, L500.05985, L500.89055, L500.52610 ####[facility] NBLRXTNQVN9717 [place], [place] [address]Az# [phone] ALK PHOS 89 U/L Normal 45-117 [facility] Comment on above: Order Comment: Campu s: M Performed By: #### L 500.97780, L500.15577, L500.45325, L500.78389 ####[facility] TVZEVMIDSS9856 [place], [place] [address]Dl# [phone] ALT [Catalytic activity/Vol] 11 U/L Low 13-61 [facility] Comment on above: Order Comment: Campu s: M Result Comment: RESU LTS MAY BE FALSELY DEPRESSED AFTER THE ADMINISTRATION OFSULFASALAZINE AND/OR SULFAPYRIDINE. Performed By: #### L 500.64732, L500.78772, L500.63273, L500.47043 ####[facility] GCTMPGMEJC5501 [place], [place] [address]Xr# [phone] AST [Catalytic activity/Vol] 16 U/L Normal 8-34 [facility] Comment on above: Order Comment: Campu s: M Result Comment: RESU LTS MAY BE FALSELY DEPRESSED AFTER THE ADMINISTRATION OFSULFASALAZINE AND/OR SULFAPYRIDINE. Performed By: #### L 500.56452, L500.59787, L500.38555, L500.28030 ####[facility] GFAFVEFAKG[address] [place] [address]Mv# [phone] BILI DIRECT 0.3 MG/DL Normal 0.00-0.36 [facility] Comment on above: Order Comment: Campu s: M Result Comment: NOTE NEW NORMAL RANGE DUE TO REAGENT CHANGE Performed By: #### L 500.81897, L500.84770, L500.58694, L500.51723 ####[facility] KRDTKHPZGM2139 [place], [place] [address]Jq# [phone] BILI TOTAL 1.00 MG/DL Normal 0.2-1.0 [facility] Comment on above: Order Comment: Campu s: M Performed By: #### L 500.80075, L500.29508, L500.70550, L500.81880 ####[facility] KKCESVTVHH1602 [place], [place] [address]Uk# [phone] Globulin (S) [Mass/Vol] 3.0 g/dL Normal 2.2-4.2 [facility] Comment on above: Order Comment: Campu s: M Performed By: #### L 500.33969, L500.63694, L500.05422, L500.24131 ####[facility] [id number] [place], [place] [address]Xj# [phone] Protein [Mass/Vol] 7.3 g/dL Normal 6.0-8.5 [facility] Comment on above: Order Comment: Campu s: M Performed By: #### L 500.21015, L500.65263, L500.52572, L500.82526 ####[facility] [id number] [place], [place] [address]Br# [phone] PORTABLE CHESTon 05-31-2021 PORTABLE CHEST [facility] [id number] 05-31-2021 SARS-CoV-2 (COVID-19) RNA DANIEL+probe Ql (Unsp spec) Negative Invalid Interpretation Code Negative [facility] Comment on above: Order Comment: Campu s: M Result Comment: RESU LTS CALLED TO ALONZO ROSALES/EDAT 205305/31/21 BY JHOANA PALMERNegative results do not preclude SARS-CoV-2 infection andshould not be used as the sole basis for treatment or otherpatient management decisions. Negative results must becombined with clinical observation, patient history, andepidemiological information.This test was performed by PCR. Performed By: #### L 770.42486 ####[facility] [id number] [place], [place] [address]Hp# [phone] UA COMPLETEon 05-31-2021 Color (U) Straw Normal [facility] Comment on above: Order Comment: Campu s: M Performed By: #### L 600.04968 ####[facility] [id number] [place], [place] [address]Tp# [phone] Glucose (U) [Mass/Vol] 500 mg/dL Normal NORMAL [facility] Comment on above: Order Comment: Campu s: M Performed By: #### L 600.97369 ####[facility] [id number] [place], [place] [address]Rz# [phone] UA APPEARANCE Clear Normal CLEAR [facility] Comment on above: Order Comment: Campu s: M Performed By: #### L 600.38674 ####[facility] [id number] [place], [place] [address]Ap# [phone] UA BILIRUBIN Negative Normal NEGATIVE [facility] Comment on above: Order Comment: Campu s: M Performed By: #### L 600.68786 ####[facility] [id number] [place], [place] [address]Er# [phone] UA BLOOD Negative Normal NEGATIVE [facility] Comment on above: Order Comment: Campu s: M Performed By: #### L 600.10535 ####[facility] [id number] [place] [address]Oj# [phone] UA KETONE 80 Normal NEGATIVE [facility] Comment on above: Order Comment: Campu s: M Performed By: #### L 600.56516 ####[facility] [id number] [place] [address]Iq# [phone] UA LK ESTERASE Negative Normal NEGATIVE [facility] Comment on above: Order Comment: Campu s: M Performed By: #### L 600.26888 ####[facility] [id number] [place] [address] 32970Du# [phone] UA NITRITE Negative Normal NEGATIVE [facility] Comment on above: Order Comment: Campu s: M Performed By: #### L 600.25346 ####[facility] [id number] [place] [address] 88771Ez# [phone] UA PH 6.0 Normal 5-6 [facility] Comment on above: Order Comment: Campu s: M Performed By: #### L 600.32790 ####[facility] BUQZXCBKZD[address] [place] [address] 18504Yd# [phone] UA PROTEIN Negative Normal NEGATIVE [facility] Comment on above: Order Comment: Campu s: M Performed By: #### L 600.65467 ####[facility] [id number] [place] [address] 87336Ls# [phone] UA SPEC GRAV 1.030 Normal 1.005-1.030 [facility] Comment on above: Order Comment: Campu s: M Performed By: #### L 600.52612 ####[facility] [id number] [place], [place] [address]Dt# [phone] UA UROBILINOGEN Negative Normal NORMAL [facility] Comment on above: Order Comment: Campu s: M Performed By: #### L 600.50968 ####[facility] IOAALSGOVY[address] [place] [address] 723[address]Qx# [phone] BMPon 04-15-2021 Anion gap [Moles/Vol] 14 mmol/L Normal 5-16 [facility] Comment on above: Order Comment: Campu s: M Performed By: #### L 500.76664, L500.54786, L500.38959, L500.41101 ####[facility] TUBFMVWUZG1467 [place], [place] [address]Hh# [phone] Calcium [Mass/Vol] 9.9 mg/dL Normal 8.5-10.5 [facility] Comment on above: Order Comment: Campu s: M Result Comment: NOTE NEW NORMAL RANGE DUE TO REAGENT CHANGE Performed By: #### L 500.83641, L500.62753, L500.60238, L500.14112 ####[facility] NFVDENZSRT4314 [place], [place] [address]Rt# [phone] Chloride [Moles/Vol] 96 mmol/L Low 98-107 [facility] Comment on above: Order Comment: Campu s: M Performed By: #### L 500.69327, L500.09723, L500.24594, L500.91257 ####[facility] YYRNCCQIGI0151 [place], [place] [address]Xz# [phone] CO2 [Moles/Vol] 22.0 mmol/L Normal - [facility] Comment on above: Order Comment: Campu s: M Performed By: #### L 500.22086, L500.12611, L500.70431, L500.56618 ####[facility] LILQUQNVOP4756 [place], [place] [address]Fa# [phone] Creatinine [Mass/Vol] 0.68 mg/dL Normal 0.510-0.950 [facility] Comment on above: Order Comment: Zach s: M Result Comment: Cleopatra ents receiving either N-Acetylcysteine (NAC) orMetamizole prior to venipuncture, may have falsely depressedresults. Performed By: #### L 500.92600, L500.45154, L500.49844, L500.82961 ####[facility] FTOZNWJHRH0357 [place], [place] [address]Ix# [phone] Glucose [Mass/Vol] 306 mg/dL High 70-100 [facility] Comment on above: Order Comment: Zach s: M Result Comment: 70-1 00- Normal Fasting; 100-125 Impaired Fasting; greaterthan 126 on more than one result- Diabetes. ADA guidelines.Results may be falsely elevated after the administration ofSulfapyridine.Results may be falsely depressed after the administration ofSulfasalazine. Performed By: #### L 500.41933, L500.93467, L500.67353, L500.13800 ####[facility] WOWWYWHDHU0362 [place], [place] [address]Uc# [phone] Potassium [Moles/Vol] 3.3 mmol/L Low 3.5-5.1 [facility] Comment on above: Order Comment: Zach s: M Performed By: #### L 500.04233, L500.99977, L500.00743, L500.63633 ####[facility] TQIQUECTQG4463 [place], [place] [address]Es# [phone] Sodium [Moles/Vol] 133 mmol/L Low 136-145 [facility] Comment on above: Order Comment: Zach s: M Performed By: #### L 500.86173, L500.12687, L500.41035, L500.37132 ####[facility] QZPJVUOSZD6292 [place], [place] [address]Xd# [phone] Urea nitrogen [Mass/Vol] 21 mg/dL Normal 7-26 [facility] Comment on above: Order Comment: Campu s: M Performed By: #### L 500.13105, L500.84597, L500.19955, L500.95386 ####[facility] YGJSNXXZIB3735 [place], [place] [address]Ke# [phone] Urea nitrogen/Creatinine [Mass ratio] 31 mg/mg High 15-24 [facility] Comment on above: Order Comment: Campu s: M Performed By: #### L 500.09866, L500.26084, L500.53472, L500.68849 ####[facility] YIVUZHXRGB1853 [place], [place] [address]Az# [phone] Stacie 04-15-2021 EMERGENCY PHYSICIAN REPORT This is a preliminary report only, as the practitioner review and authentication has not occurred. [facility] ER [facility] EMERGENCY PHYSICIAN REPORT This is a preliminary report only, as the practitioner review and authentication has not occurred. [facility] ER [facility] GFR ESTon 04-15-2021 IF AMER Greater than 60 [facility] Comment on above: Order Comment: Campu s: M Performed By: #### L 500.58114, L500.15935, L500.18678, L500.25207 ####[facility] OVCSOQAQIH1156 [place], [place] [address]Gx# [phone] IF non-AFR AMER Greater than 60 [facility] Comment on above: Order Comment: Campu s: M Performed By: #### L 500.00523, L500.95667, L500.95460, L500.15363 ####[facility] UZCQDSETOD8655 [place], [place] [address]Yh# [phone] GLUCOSE METERon 04-15-2021 Glucose [Mass/Vol] 305 mg/dL High 70-115 [facility] Glucose [Mass/Vol] 197 mg/dL High 70-115 [facility] LACTATE BLOODon 04-15-2021 LACTATE BLOOD 2.16 MMOL/L High 0.40-2.00 [facility] Comment on above: Order Comment: Campu s: M Performed By: #### L 550.99299 ####[facility] WQWZIWOWKI2486 [place], [place] [address]Ea# [phone] LIPASEon 04-15-2021 Lipase [Catalytic activity/Vol] 19 U/L Normal 12-60 [facility] Comment on above: Order Comment: Campu s: M Result Comment: NOTE NEW NORMAL RANGE DUE TO REAGENT CHANGE Performed By: #### L 500.78188, L500.49830, L500.78305, L500.26446 ####[facility] YTLIJEUYNU6314 [place], [place] [address]Ge# [phone] LIVERon 04-15-2021 Albumin [Mass/Vol] 4.2 g/dL Normal 3.2-5.0 [facility] Comment on above: Order Comment: Campu s: M Performed By: #### L 500.92434, L500.63996, L500.53811, L500.48862 ####[facility] VEIULFJRUG2703 [place], [place] [address]Bm# [phone] Albumin/Globulin [Mass ratio] 1.3 {ratio} Normal 0.8-2.0 [facility] Comment on above: Order Comment: Campu s: M Performed By: #### L 500.47922, L500.43848, L500.69594, L500.96803 ####[facility] GNZIDCOSFJ8938 [place], [place] [address]Ow# [phone] ALK PHOS 102 U/L Normal 45-117 [facility] Comment on above: Order Comment: Campu s: M Performed By: #### L 500.31529, L500.58392, L500.71682, L500.96366 ####[facility] RVUVWWABAH6603 [place], [place] [address]Fs# [phone] ALT [Catalytic activity/Vol] 11 U/L Low 13-61 [facility] Comment on above: Order Comment: Campu s: M Result Comment: RESU LTS MAY BE FALSELY DEPRESSED AFTER THE ADMINISTRATION OFSULFASALAZINE AND/OR SULFAPYRIDINE. Performed By: #### L 500.89996, L500.84647, L500.74973, L500.32826 ####[facility] RHHOXFGXGH3609 [place], [place] [address]Rs# [phone] AST [Catalytic activity/Vol] 13 U/L Normal 8-34 [facility] Comment on above: Order Comment: Campu s: M Result Comment: RESU LTS MAY BE FALSELY DEPRESSED AFTER THE ADMINISTRATION OFSULFASALAZINE AND/OR SULFAPYRIDINE. Performed By: #### L 500.81064, L500.30247, L500.14183, L500.23601 ####[facility] KDJDKZMCWQ3075 [place], [place] [address]Cx# [phone] BILI DIRECT 0.3 MG/DL Normal 0.00-0.36 [facility] Comment on above: Order Comment: Campu s: M Result Comment: NOTE NEW NORMAL RANGE DUE TO REAGENT CHANGE Performed By: #### L 500.09604, L500.74474, L500.98190, L500.87645 ####[facility] CGXUMVIFJX9636 [place], [place] [address]Hl# [phone] BILI TOTAL 1.10 MG/DL High 0.2-1.0 [facility] Comment on above: Order Comment: Campu s: M Performed By: #### L 500.43851, L500.27809, L500.74354, L500.21407 ####[facility] JXDZFOXXYD9600 [place], [place] [address]Mr# [phone] Globulin (S) [Mass/Vol] 3.3 g/dL Normal 2.2-4.2 [facility] Comment on above: Order Comment: Campu s: M Performed By: #### L 500.23676, L500.18621, L500.25304, L500.32728 ####[facility] VTXASCWMXO9966 [place], [place] [address]Tu# [phone] Protein [Mass/Vol] 7.5 g/dL Normal 6.0-8.5 [facility] Comment on above: Order Comment: Campu s: M Performed By: #### L 500.42279, L500.62927, L500.63772, L500.80887 ####[facility] PHEGRXQPKF7370 [place], [place] [address]Bz# [phone] UA COMPLETEon 04-15-2021 Color (U) Yellow [facility] Comment on above: Order Comment: Campu s: M Performed By: #### L 600.23177 ####[address] [address]Zw# [phone] Glucose (U) [Mass/Vol] 500 mg/dL Normal NORMAL [facility] Comment on above: Order Comment: Campu s: M Performed By: #### L 600.14844 ####[facility] NKCRECJWOC[address] [place] [address]Az# [phone] Mucus Ql (Urine sed) TRACE [facility] Comment [facility]: Order Comment: Campu s: M Performed By: #### L 600.71926 ####[facility] NAQLAVVCBZ0599 [place], [place] [address]Ca# [phone] SQUAMOUS EPIS 2 EPI/HPF Normal 0-5 [facility] Comment on above: Order Comment: Campu s: M Performed By: #### L 600.81549 ####[facility] DPMRTGVIAG[address] [place] [address]Nm# [phone] UA APPEARANCE Clear Normal CLEAR [facility] Comment on above: Order Comment: Campu s: M Performed By: #### L 600.91130 ####[facility] GAGUXNMTNV0411 [place], [place] [address]Zo# [phone] UA BACTERIA TRACE Normal NONE [facility] Comment on above: Order Comment: Campu s: M Performed By: #### L 600.02167 ####[facility] XGHGZCPGYV9561 [place], [place] [address]Xb# [phone] UA BILIRUBIN Negative Normal NEGATIVE [facility] Comment on above: Order Comment: Campu s: M Performed By: #### L 600.13016 ####[facility] WOPMQIUCVZ3844 [place], [place] [address]Oi# [phone] UA BLOOD Negative Normal NEGATIVE [facility] Comment on above: Order Comment: Campu s: M Performed By: #### L 600.05931 ####[facility] QFMYGOOEXC[address] [place] [address]Zr# [phone] UA KETONE 80 Normal NEGATIVE [facility] Comment on above: Order Comment: Campu s: M Performed By: #### L 600.17523 ####[facility] GOZOGLUFJL[address] [place] [address]El# [phone] UA LK ESTERASE Negative Normal NEGATIVE [facility] Comment on above: Order Comment: Campu s: M Performed By: #### L 600.59789 ####[facility] IPKEBGOQLP[address] [place] [address]Rh# [phone] UA NITRITE Negative Normal NEGATIVE [facility] Comment on above: Order Comment: Campu s: M Performed By: #### L 600.40859 ####[facility] QOEXFIQLPT[address] [place] [address]Zn# [phone] UA PH 6.0 Normal 5-6 [facility] Comment on above: Order Comment: Campu s: M Performed By: #### L 600.74372 ####[facility] V[address]QETQLBBT[address] [place] [address]Yq# [phone] UA PROTEIN 30 Normal NEGATIVE [facility] Comment on above: Order Comment: Campu s: M Performed By: #### L 600.60502 ####[facility] KIEWDSTQYS[address] [place] [address]Lt# [phone] UA RBC 1 RBC/HPF Normal 0-3 [facility] Comment on above: Order Comment: Campu s: M Performed By: #### L 600.79981 ####[facility] JBXNOTIQJR3416 [place], [place] [address]Zq# [phone] UA SPEC GRAV 1.017 Normal 1.005-1.030 [facility] Comment on above: Order Comment: Campu s: M Performed By: #### L 600.59130 ####[facility] FHVMBBETND9100 [place], [place] [address]Na# [phone] UA UROBILINOGEN Negative Normal NORMAL [facility] Comment on above: Order Comment: Campu s: M Performed By: #### L 600.87388 ####[facility] [address]ZLPOUDSN[address] [place] [address]Vd# [phone] UA WBC 6 WBC/HPF High 0-5 [facility] Comment on above: Order Comment: Campu s: M Performed By: #### L 600.32659 ####[facility] ENKFBBNIFP[address] [place] [address]Mv# [phone] BMPon 03-17-2021 Anion gap [Moles/Vol] 16 mmol/L Normal 5-16 [facility] Comment on above: Order Comment: Campu s: M Performed By: #### L 500.13544, L500.28601 ####[facility] MOJKZAROGZ8863 [place], [place] [address]Zj# [phone] Calcium [Mass/Vol] 10.0 mg/dL Normal 8.5-10.5 [facility] Comment on above: Order Comment: Campu s: M Result Comment: NOTE NEW NORMAL RANGE DUE TO REAGENT CHANGE Performed By: #### L 500.59558, L500.10415 ####[facility] NONNYWQIRK2389 [place], [place] [address]Gm# [phone] Chloride [Moles/Vol] 102 mmol/L Normal 98-107 [facility] Comment on above: Order Comment: Campu s: M Performed By: #### L 500.13572, L500.85223 ####[facility] EHHDDMVAMC[address] [place] [address]Mh# [phone] CO2 [Moles/Vol] 16.0 mmol/L Low 21-32 [facility] Comment on above: Order Comment: Benjiu s: M Performed By: #### L 500.46965, L500.00443 ####[facility] CRBOOKAOSP1277 [place], [place] [address]Zn# [phone] Creatinine [Mass/Vol] 0.71 mg/dL Normal 0.510-0.950 [facility] Comment on above: Order Comment: Campu s: M Result Comment: Cleopatra ents receiving either N-Acetylcysteine (NAC) orMetamizole prior to venipuncture, may have falsely depressedresults. Performed By: #### L 500.87598, L500.29993 ####[facility] [address] [place], [place] [address]Na# [phone] Glucose [Mass/Vol] 418 mg/dL High 70-100 [facility] Comment on above: Order Comment: Campu s: M Result Comment: 70-1 00- Normal Fasting; 100-125 Impaired Fasting; greaterthan 126 on more than one result- Diabetes. ADA guidelines.Results may be falsely elevated after the administration ofSulfapyridine.Results may be falsely depressed after the administration ofSulfasalazine. Performed By: #### L 500.46031, L500.45858 ####[facility] MVAORRDHGH2257 [place], [place] [address]Mq# [phone] Potassium [Moles/Vol] 4.2 mmol/L Normal 3.5-5.1 [facility] Comment on above: Order Comment: Campu s: M Result Comment: Slig ht Hemolysis, Result may be affected. Performed By: #### L 500.06218, L500.41983 ####[facility] MUIBICFUAY3251 [place], [place] [address]Uh# [phone] Sodium [Moles/Vol] 134 mmol/L Low 136-145 [facility] Comment on above: Order Comment: Benjiu s: M Performed By: #### L 500.38680, L500.37246 ####[facility] TOSNOYSCXC3369 [place], [place] [address]Dt# [phone] Urea nitrogen [Mass/Vol] 25 mg/dL Normal 7-26 [facility] Comment on above: Order Comment: Campu s: M Performed By: #### L 500.23688, L500.54584 ####[facility] MWAKBUUPDM[address] [place] [address]Wx# [phone] Urea nitrogen/Creatinine [Mass ratio] 35 mg/mg High 15-24 [facility] Comment on above: Order Comment: Campu s: M Performed By: #### L 500.38099, L500.68709 ####[address] [address]Ov# [phone] CBC W/DIFFon 03-17-2021 BASO ABS 0.00 K/CU MM Normal 0-0.2 [facility] Comment on above: Order Comment: Campu s: M Performed By: #### L 200.78625 ####[facility] PKTVKCXRPW[address] [place] [address]Fq# [phone] Basophils/100 WBC (Bld) 0.1 % Normal 0-2 [facility] Comment on above: Order Comment: Campu s: M Performed By: #### L 200.59287 ####[facility] RLBSOCKQVG[address] [place] [address]Ru# [phone] EOS ABS 0.00 K/CU MM Normal 0-0.5 [facility] Comment on above: Order Comment: Campu s: M Performed By: #### L 200.18267 ####[facility] HJYDQSNWUM[address] [place] [address]Tj# [phone] Eosinophils/100 WBC (Bld) 0.0 % Normal 0-5 [facility] Comment on above: Order Comment: Campu s: M Performed By: #### L 200.16132 ####[facility] AXVTUJELKX69[address] [place] [address] 268[address]Qx# [phone] Erythrocyte distribution width (RBC) [Ratio] 14.6 % High 11-14.5 [facility] Comment on above: Order Comment: Campu s: M Performed By: #### L 200.96105 ####[facility] HPMIBECYJP4853 [place], [place] [address]Cd# [phone] Hematocrit (Bld) [Volume fraction] 37.2 % Normal 35.0-47.0 [facility] Comment on above: Order Comment: Campu s: M Performed By: #### L 200.38229 ####[facility] KSVTAPKQHA[address] [place] [address]Vt# [phone] Hemoglobin (Bld) [Mass/Vol] 12.4 g/dL Normal 11.5-15.5 [facility] Comment on above: Order Comment: Campu s: M Performed By: #### L 200.51530 ####[facility] NNKTNCDDBB[address] [place], [place] [address]Ph# [phone] IMMATR GRAN ABS 0.10 K/CU MM Normal Less than 2 [facility] Comment on above: Order Comment: Campu s: M Performed By: #### L 200.63215 ####[facility] LKUXSRFFGK[address] [place] [address]Xm# [phone] IMMATURE GRAN % 0.8 % Normal Less than 2 [facility] Comment on above: Order Comment: Campu s: M Performed By: #### L 200.16321 ####[facility] BGNGIFPQQX[address] [place] [address]Yg# [phone] LYMPH ABS 0.80 K/CU MM Low 0.9-4.4 [facility] Comment on above: Order Comment: Campu s: M Performed By: #### L 200.64769 ####[facility] XDWVCIWKLM[address] [place] [address]Gj# [phone] Lymphocytes/100 WBC (Bld) 4.5 % Low 20-40 [facility] Comment on above: Order Comment: Campu s: M Performed By: #### L 200.91930 ####[facility] QEWLMRBPHU4819 [place], [place] [address]Gd# [phone] MCHC (RBC) [Mass/Vol] 33.3 g/dL Normal 32.0-36.[address] [facility] Comment on above: Order Comment: Campu s: M Performed By: #### L 200.61125 ####[facility] KEZTOGCPRH[address] [place] [address]Rn# [phone] MCV (RBC) [Entitic vol] 83.2 fL Normal 80.0-99.0 [facility] Comment on above: Order Comment: Campu s: M Performed By: #### L 200.75157 ####[address] [address]Rn# [phone] MONO ABS 0.30 K/CU MM Normal 0.1-1.1 [facility] Comment on above: Order Comment: Campu s: M Performed By: #### L 200.27260 ####[facility] GMVIIBXEDQ[address] [place] [address]Pu# [phone] Monocytes/100 WBC (Bld) 1.7 % Low 2-10 [facility] Comment on above: Order Comment: Campu s: M Performed By: #### L 200.10558 ####[facility] IRIRDXIHWD[address] [place] [address]Jr# [phone] NEUTROPHIL ABS 16.70 K/CU MM High 2.0-8.3 [facility] Comment on above: Order Comment: Campu s: M Performed By: #### L 200.95661 ####[facility] FPDOWWEAIS[address] [place] [address]Sp# [phone] Neutrophils/100 WBC (Bld) 92.9 % High 45-75 [facility] Comment on above: Order Comment: Campu s: M Performed By: #### L 200.24439 ####[facility] INIJCPYOQR[address] [place], [place] [address]Ph# [phone] Nucleated RBC/100 WBC (Bld) [Ratio] 0.0 % Normal Less than 1 [facility] Comment on above: Order Comment: Campu s: M Performed By: #### L 200.39653 ####[facility] YBGIFZLUNJ7520 [place], [place] [address]Dq# [phone] Platelet mean volume (Bld) [Entitic vol] 12.9 fL High 9.4-12.4 [facility] Comment on above: Order Comment: Campu s: M Performed By: #### L 200.38699 ####[facility] NHOBDGPEJC0106 [place], [place] [address]Mz# [phone] PLT 181 K/CU MM Normal 150-450 [facility] Comment on above: Order Comment: Campu s: M Performed By: #### L 200.67940 ####[facility] MEKGBXNNCI[address] [place] [address]Jo# [phone] RBC 4.47 M/CU MM Normal 3.90-5.30 [facility] Comment on above: Order Comment: Campu s: M Performed By: #### L 200.14085 ####[facility] PDMVBDEPJC9619 [place], [place] [address]Vr# [phone] WBC 17.9 K/CUMM High 4.5-11.0 [facility] Comment on above: Order Comment: Campu s: M Performed By: #### L 200.20688 ####[facility] [address] [place] [address]Yp# [phone] Stacie 03-17-2021 EMERGENCY PHYSICIAN REPORT This is a preliminary report only, as the practitioner review and authentication has not occurred. Normal [facility] ER [facility] EMERGENCY PHYSICIAN REPORT This is a preliminary report only, as the practitioner review and authentication has not occurred. Normal [facility] 03-17-2021 IF AMER Greater than 60 [facility] Comment on above: Order Comment: Campu s: M Performed By: #### L 500.71171, L500.37432 ####[facility] [id number] [place], [place] [address]Px# [phone] IF non-AFR AMER Greater than [address] [facility] Comment on above: Order Comment: Campu s: M Performed By: #### L [id number], [id number] ####[facility] [id number] [place], [place] [address]Dy# [phone] GLUCOSE METERon 03-17-2021 Glucose [Mass/Vol] 333 mg/dL High 70-115 [facility] [place] Glucose [Mass/Vol] 360 mg/dL High 70-115 [facility] VBG PHon 03-17-2021 VBG PH 7.40 MMHG Normal 7.31-7.41 [facility] Comment on above: Order Comment: Benjiu s: M Performed By: #### L [id number] ####[facility] [id number] [place], [place] [address]Id# [phone] A1C Hgbon 02-24-2017 Hemoglobin A1c/Hemoglobin.total mass fraction (Bld) 10.8 % High 4.0-6.0 [facility] Comment on above: Performed By: #### G FR ####[address] [address] Basic Metabolic Panelon 01-28 BUN/Creatinine Ratio 21.4 mg/mg Normal 10.0-22.0 [facility] Comment on above: Order Comment: CBN Performed By: #### G FR ####[place] [id number] [place] [address] Creatinine 0.56 mg/dL Normal 0.50-1.20 [facility] Comment on above: Order Comment: CBN Performed By: #### G FR ####[address] [address] Calcium 7.8 mg/dL Low 8.4-10.1 [facility] Comment on above: Order Comment: CBN Performed By: #### G FR ####[facility], [address] [place] [address] Chloride 107 mmol/L Normal 98-110 [facility] Comment on above: Order Comment: CBN Performed By: #### G FR ####[facility], [address] [place] [address] Electrolyte Balance 10.0 mEq/L Normal 4.0-15.0 [facility] Comment on above: Order Comment: CBN Performed By: #### G FR ####[facility], [address] [place] [address] Sodium 138 mmol/L Normal 136-145 [facility] Comment on above: Order Comment: CBN Performed By: #### G FR ####[facility], [address] [place] [address] Glucose mass conc 289 mg/dL High 70-110 [facility] Comment on above: Order Comment: CBN Performed By: #### G FR ####[facility], [address] [place] [address] 36982 CO2 21 mmol/L Low 22-32 [facility] Comment on above: Order Comment: CBN Performed By: #### G FR ####[facility], [address] [place] [address] 57825 Urea nitrogen 12.0 mg/dL Normal 8.0-22.0 [facility] Comment on above: Order Comment: CBN Performed By: #### G FR ####[facility], [address] [place] [address] 30245 Potassium molar conc 3.7 mmol/L Normal 3.5-5.0 [facility] Comment on above: Order Comment: CBN Performed By: #### G FR ####[facility], [facility] [address] [place] [address] 46780 CBCon 02-24-2017 Basophils/100 WBC Auto (Bld) 0.4 % Normal 0.0-2.5 [facility] Comment on above: Order Comment: CBN Performed By: #### G FR ####[facility], [address] [place] [address] 45420 Eosinophils/100 leukocytes 1.5 % Normal 0.0-6.0 [facility] Comment on above: Order Comment: CBN Performed By: #### G FR ####[facility], [address] [place] [address] 45164 Erythrocyte distribution width Auto Ratio (RBC) 15.1 % Normal 11.5-15.5 [facility] Comment on above: Order Comment: CBN Performed By: #### G FR ####[facility], [address] [place] [address] 62086 Erythrocytes (RBC) 4.19 10 6/mcL Normal 4.10-5.30 [facility] Comment on above: Order Comment: CBN Performed By: #### G FR ####[address] [address] Hematocrit (HCT) 35.9 % Normal 34.0-46.0 [facility] Comment on above: Order Comment: CBN Performed By: #### G FR ####[place] [id number] Hemoglobin mass conc (Bld) 11.9 G/dL Low 12.0-16.0 [facility] Comment on above: Order Comment: CBN Performed By: #### G FR ####[facility], [address] [place] [address] 58869 Lymphocytes/100 leukocytes 36.7 % Normal 20.0-40.0 [facility] Comment on above: Order Comment: CBN Performed By: #### G FR ####[address] [address] MCH 28.5 pg Normal 27.0-33.0 [facility] Comment on above: Order Comment: CBN Performed By: #### G FR ####[address] [address] MCHC mass conc (RBC) 33.2 G/dL Normal 32.0-36.0 [facility] Comment on above: Order Comment: CBN Performed By: #### G FR ####[address] [address] MCV 85.8 fL Normal 80.0-99.0 [facility] Comment on above: Order Comment: CBN Performed By: #### G FR ####[facility], [address] [place] [address] 06090 Monocytes/100 leukocytes 4.9 % Normal 2.0-13.0 [facility] Comment on above: Order Comment: CBN Performed By: #### G FR ####[address] [address] Neutrophils 4.40 10 3/mcL Normal 1.90-7.90 [facility] Comment on above: Order Comment: CBN Performed By: #### G FR ####[address] [address] Neutrophils/100 WBC Auto (Bld) 56.5 % Normal 50.0-75.0 [facility] Comment on above: Order Comment: CBN Performed By: #### G FR ####[address] [address] Platelet mean volume (PMV) 8.0 fL Normal 6.6-10.5 [facility] Comment on above: Order Comment: CBN Performed By: #### G FR ####[facility], [address] [place] [address] 61695 Platelets 301 10 3/mcL Normal 150-450 [facility] Comment on above: Order Comment: CBN Performed By: #### G FR ####[address] [address] WBC (Leukocytes) 7.70 10 3/mcL Normal 4.50-10.80 [facility] Comment on above: Order Comment: CBN Performed By: #### G FR ####[address] [place] [address] Depart Summaryon 02-24-2017 Depart Summary Normal [facility] Discharge Note-Physicianon 0 02-24-2017 Discharge Note-Physician Normal [facility] Glomerular Filtration Rate E stimateon 02-24-2017 eGFR (non-black) mL/min/{1.73_m2} Normal [facility] Comment on above: Order Comment: CBN Result Comment: Davidson kowalski mean GFR = 116 mL/min/1.73 sq.m. for ages 20-29 years. Chronic Kidney Disease: Less than 60 mL/min/1.73 square metersEnd Stage Renal Disease: Less than 15 mL/min/1.73 square meters Performed By: #### G FR ####[place] [address] History and Physicalon 02-24 History and Physical Normal [facility] Inpatient Patient Summaryon 02-24-2017 Inpatient Patient Summary Normal [facility] Troponin Ion 02-24-2017 Troponin I.cardiac mass conc ng/mL Normal 0.000-0.040 [facility] Comment on above: Result Comment: Trop onin I reference ranges (05/05/14): 0.00-0.040 ng/mL Negative and non-diagnostic. >0.040 ng/mL Consistent with cardiac damage, increased clinical risk and possibility of myocardial infarction. Serial measurements, a rise & fall in test results, clinical history, appropriate symptoms and/or ECG changes may help assess possibility of MS. *Other non-acute coronary syndrome conditions such as CHF, myocarditis, pulmonary emboli, sepsis and cardiac surgery could result in myocardial damage and increased troponin levels. NOTE: This is a new and more precise Troponin assay started 05-05-14 Performed By: #### C BC ####[place] [id number] B-Hydroxybutyrateon 02-24-20 17 B-Hydroxybutyrate 51.30 mg/dL High 0.20-2.81 [facility] Comment on above: Performed By: #### C BC ####[place] [id number] Basic Metabolic Panelon 01-27 BUN/Creatinine Ratio 32.1 mg/mg High 10.0-22.0 [facility] Comment on above: Performed By: #### C BC ####[facility], [address] [place], [place] [id number] Creatinine 0.53 mg/dL Normal 0.50-1.20 [facility] Comment on above: Performed By: #### C BC ####[facility], [address] [place] [address]24 Calcium 8.0 mg/dL Low 8.4-10.1 [facility] Comment on above: Performed By: #### C BC ####[facility], [address] [place] [address] 28080 Chloride 109 mmol/L Normal 98-110 [facility] Comment on above: Performed By: #### C BC ####[facility], [address] [place] [address] 37436 Electrolyte Balance 15.0 mEq/L Normal 4.0-15.0 [facility] Comment on above: Performed By: #### C BC ####[facility], [address] [place] [address] 04142 Sodium 141 mmol/L Normal 136-145 [facility] Comment on above: Performed By: #### C BC ####[facility], [address] [place] [address] 99636 CO2 17 mmol/L Low 22-32 [facility] Comment on above: Performed By: #### C BC ####[facility], [address] [place] [address] 52018 Glucose mass conc 160 mg/dL High 70-110 [facility] Comment on above: Performed By: #### C BC ####[facility], [address] [place] [address] 37470 Urea nitrogen 17.0 mg/dL Normal 8.0-22.0 [facility] Comment on above: Performed By: #### C BC ####[facility], [address] [place] [address] 31330 Potassium molar conc 3.9 mmol/L Normal 3.5-5.0 [facility] Comment on above: Performed By: #### C BC ####[facility], [address] [place] [address] 46056 Calcium 7.9 mg/dL Low 8.4-10.1 [facility] Comment on above: Performed By: #### C BC ####[facility], [address] [place] [address] 27286 Chloride 103 mmol/L Normal 98-110 [facility] Comment on above: Performed By: #### C BC ####[facility], [address] [place] [address] 06950 Electrolyte Balance 15.0 mEq/L Normal 4.0-15.0 [facility] Comment on above: Performed By: #### C BC ####[facility], [address] [place] [address] 57704 BUN/Creatinine Ratio 33.3 mg/mg High 10.0-22.0 [facility] Comment on above: Performed By: #### C BC ####[facility], [address] [place] [address] Creatinine 0.54 mg/dL Normal 0.50-1.20 [facility] Comment on above: Performed By: #### C BC ####[facility], [address] [place], [place] [id number] CO2 19 mmol/L Low 22-32 [facility] Comment on above: Performed By: #### C BC ####[facility], [address] [place] [address] 94905 Glucose mass conc 368 mg/dL High 70-110 [facility] Comment on above: Performed By: #### C BC ####[facility], [address] [place] [address] 49832 Urea nitrogen 18.0 mg/dL Normal 8.0-22.0 [facility] Comment on above: Performed By: #### C BC ####[facility], [address] [place] [address] 82520 Potassium molar conc 4.2 mmol/L Normal 3.5-5.0 [facility] Comment on above: Performed By: #### C BC ####[address] [address] Sodium 137 mmol/L Normal 136-145 [facility] Comment on above: Performed By: #### C BC ####[facility], [address] [place] [address] Glucose mass conc 568 mg/dL Critically high 70-110 [facility] Comment on above: Order Comment: CBN Performed By: #### B MP ####[facility], [address] [place] [address] BUN/Creatinine Ratio 27.3 mg/mg High 10.0-22.0 [facility] Comment on above: Order Comment: CBN Performed By: #### B MP ####[place] [address] Creatinine 0.77 mg/dL Normal 0.50-1.20 [facility] Comment on above: Order Comment: CBN Performed By: #### B MP ####[place] [address] Calcium 10.1 mg/dL Normal 8.4-10.1 [facility] Comment on above: Order Comment: CBN Performed By: #### B MP ####[place] [address] CO2 21 mmol/L Low 22-32 [facility] Comment on above: Order Comment: CBN Performed By: #### B MP ####[facility], [address] [place] [address] Electrolyte Balance 19.0 mEq/L High 4.0-15.0 [facility] Comment on above: Order Comment: CBN Performed By: #### B MP ####[address] [address] Urea nitrogen 21.0 mg/dL Normal 8.0-22.0 [facility] Comment on above: Order Comment: CBN Performed By: #### B MP ####[address] [address] Chloride 89 mmol/L Low 98-110 [facility] Comment on above: Order Comment: CBN Performed By: #### B MP ####[place] [address] Potassium molar conc 4.5 mmol/L Normal 3.5-5.0 [facility] Comment on above: Order Comment: CBN Performed By: #### B MP ####[place] [address] Sodium 129 mmol/L Low 136-145 [facility] Comment on above: Order Comment: CBN Performed By: #### B MP ####[place] [address] CBCon 02-23-2017 Basophils/100 WBC Auto (Bld) 0.7 % Normal 0.0-2.5 [facility] Comment on above: Order Comment: CBN Performed By: #### C BC ####[place] [address] Eosinophils/100 leukocytes 0.7 % Normal 0.0-6.0 [facility] Comment on above: Order Comment: CBN Performed By: #### C BC ####[place] [address] Erythrocyte distribution width Auto Ratio (RBC) 14.9 % Normal 11.5-15.5 [facility] Comment on above: Order Comment: CBN Performed By: #### C BC ####[place] [address] Erythrocytes (RBC) 5.16 10 6/mcL Normal 4.10-5.30 [facility] Comment on above: Order Comment: CBN Performed By: #### C BC ####[place] [address] Hematocrit (HCT) 44.8 % Normal 34.0-46.0 [facility] Comment on above: Order Comment: CBN Performed By: #### C BC ####[address] [place] [address] Hemoglobin mass conc (Bld) 14.7 G/dL Normal 12.0-16.0 [facility] Comment on above: Order Comment: CBN Performed By: #### C BC ####[facility], [address] [place] [address]5578 Lymphocytes/100 leukocytes 21.2 % Normal 20.0-40.0 [facility] Comment on above: Order Comment: CBN Performed By: #### C BC ####[facility], [address] [place] [address] 31521 MCH 28.5 pg Normal 27.0-33.0 [facility] Comment on above: Order Comment: CBN Performed By: #### C BC ####[facility], [address] [place] [address] 82146 MCHC mass conc (RBC) 32.8 G/dL Normal 32.0-36.0 [facility] Comment on above: Order Comment: CBN Performed By: #### C BC ####[facility], [address] [place] [address] 52838 MCV 86.9 fL Normal 80.0-99.0 [facility] Comment on above: Order Comment: CBN Performed By: #### C BC ####[facility], [address] [place] [address] 58455 Monocytes/100 leukocytes 3.9 % Normal 2.0-13.0 [facility] Comment on above: Order Comment: CBN Performed By: #### C BC ####[facility], [address] [place] [address] 13443 Neutrophils 6.10 10 3/mcL Normal 1.90-7.90 [facility] Comment on above: Order Comment: CBN Performed By: #### C BC ####[address] [address] Neutrophils/100 WBC Auto (Bld) 73.5 % Normal 50.0-75.0 [facility] Comment on above: Order Comment: CBN Performed By: #### C BC ####[facility], [address] [place] [address] 75471 Platelet mean volume (PMV) 7.9 fL Normal 6.6-10.5 [facility] Comment on above: Order Comment: CBN Performed By: #### C BC ####[facility], [address] [place] [address] 13428 Platelets 316 10 3/mcL Normal 150-450 [facility] Comment on above: Order Comment: CBN Performed By: #### C BC ####[facility], [address] [place] [address] 67068 WBC (Leukocytes) 8.30 10 3/mcL Normal 4.50-10.80 [facility] Comment on above: Order Comment: CBN Performed By: #### C BC ####[address] [address] Culture Bloodon 02-23-2017 Culture Blood Name : KATHLEEN VILLA Brynn : 1995 Sex: Ovalles# Loc Src Site [id number] Blood #1 02/23/17NTIBIOTICS AT COL.: See MEGAN Angel MEDICINE RESIDENT [address] [place], [place] [address]Culture Blood FINALCulture has been received in lab and is no growth to date.Routine cultures are held for 5 days.Blood Culture: No Growth at 5 daysKEY FOR RESULTS: - NEW RESULTATT.PHYS.: VAMSI MARRUFO LOCATION: [id number].DATE: 02/23/17 PATIENT : KATHLEEN VILLA LMICROBIOLOGYPRINTED: 02/28/17 18:00 REGULAR 2 PAGE: 2 of 1 1 Normal [facility] Drug Screen (s)on 02-23-2017 Acetaminophen mass conc <2.0 Low 10.0-30.0 [facility] Comment on above: Performed By: #### C BC ####[facility], [address] [place] [address]492 Drug Screen (s) Positive Normal [facility] Comment on above: Result Comment: . THE SERUM SHOWS EVIDENCE OF:1. Salicylate. Performed By: #### C BC ####[facility], [address] [place] [address] 87168 Ethanol mg/dL Normal [facility] Comment on above: Performed By: #### C BC ####[facility], [address] [place] [address] 61166 Serum TCA Negative Normal [facility] Comment on above: Performed By: #### C BC ####[facility], [address] [place] [address] 36002 Salicylate (ds) 3.0 mg/dL Low 10.0-25.0 [facility] Comment on above: Performed By: #### C BC ####[facility], [address] [place] [address] Drugs screened: SEE BELOW Normal [facility] Comment on above: Result Comment: T his drug screen is a presumptive screening only. Noconfirmation will be performed unless requested.Drugs screened include: Threshold Ethanol 10.0 mg/dl Salicylate 2.0 mg/dL Acetaminophen 2.0 mcg/mL Tricyclic Antidepressants 300 ng/mLTesting has been performed FOR MEDICAL PURPOSES ONLY. Performed By: #### C BC ####[facility], [address] [place] [address]25 ED Note-Provideron 7 ED Note-Provider Normal [facility] Glomerular Filtration Rate E stimateon 02-23-2017 eGFR (non-black) mL/min/{1.73_m2} Normal [facility] Comment on above: Result Comment: Davidson kowalski mean GFR = 116 mL/min/1.73 sq.m. for ages 20-29 years. Chronic Kidney Disease: Less than 60 mL/min/1.73 square metersEnd Stage Renal Disease: Less than 15 mL/min/1.73 square meters Performed By: #### C BC ####[facility], [address] [place] [address] eGFR (non-black) mL/min/{1.73_m2} Normal [facility] Comment on above: Result Comment: Davidson kowalski mean GFR = 116 mL/min/1.73 sq.m. for ages 20-29 years. Chronic Kidney Disease: Less than 60 mL/min/1.73 square metersEnd Stage Renal Disease: Less than 15 mL/min/1.73 square meters Performed By: #### G FR ####[place] [address] eGFR (non-black) mL/min/{1.73_m2} Normal [facility] Comment on above: Order Comment: CBN Performed By: #### G FR ####[place] [address] Result Comment: Davidson kowalski mean GFR = 116 mL/min/1.73 sq.m. for ages 20-29 years. Chronic Kidney Disease: Less than 60 mL/min/1.73 square metersEnd Stage Renal Disease: Less than 15 mL/min/1.73 square meters Magnesiumon 02-23-2017 Magnesium 2.0 mg/dL Normal 1.6-2.4 [facility] Comment on above: Performed By: #### M G ####[place] [address] Osmolality (s)on 02-23-2017 Osmolality 299 mOsm/kg Normal 275-300 [facility] Comment on above: Performed By: #### C BC ####[place] [address] Phosphoruson 02-23-2017 Phosphate 2.8 mg/dL Normal 2.5-4.5 [facility] Comment on above: Performed By: #### P HOS ####[facility], [address] [place] [address] TSHon 02-23-2017 Thyroid stimulating hormone (TSH) 0.62 mcIU/mL Normal 0.36-3.74 [facility] Comment on above: Performed By: #### C BC ####[facility], [address] [place] [address] Troponin Ion 02-23-2017 Troponin I.cardiac mass conc ng/mL Normal 0.000-0.040 [facility] Comment on above: Result Comment: Trop onin I reference ranges (05/05/14): 0.00-0.040 ng/mL Negative and non-diagnostic. >0.040 ng/mL Consistent with cardiac damage, increased clinical risk and possibility of myocardial infarction. Serial measurements, a rise & fall in test results, clinical history, appropriate symptoms and/or ECG changes may help assess possibility of MS. *Other non-acute coronary syndrome conditions such as CHF, myocarditis, pulmonary emboli, sepsis and cardiac surgery could result in myocardial damage and increased troponin levels. NOTE: This is a new and more precise Troponin assay started 05-05-14 Performed By: #### T ROPI ####[facility], [address] [place] [address] XR CHEST 1 VIEWon 02-23-2017 XR CHEST [...] Sign Date: 02/23/2017 4:58:05 PM Normal [facility] XR FOOT COMPLETE RIGHTon XR FOOT COMPLETE [...] Sign Date: 02/23/2017 7:47:57 PM Normal [facility] pH (venous)on 02-23-2017 pH of blood 7.381 [pH] Normal 7.380-7.460 [facility] Comment on above: Order Comment: CBN Performed By: #### P HV ####[facility], [address] [place] [address] Vital Signs Date Time Vital Sign Value Performing Clinician Facility 01-27-2025 13:08-0400 Diastolic blood pressure 87 mm[Hg] Nova Lignum Work Phone: [facility] 01-27-2025 13:08-0400 Heart rate 98 /min [employer] Work Phone: [facility] 01-27-2025 13:08-0400 Systolic blood pressure 134 mm[Hg] [employer] Work Phone: [facility] 11-11-2024 10:18-0400 Body height 175.3 cm Leticia Hylton [employer] Work Phone: [facility] 11-11-2024 10:18-0400 Body mass index (BMI) [Ratio] 25.07 kg/m2 Leticia Hylton [employer] Work Phone: [facility] 11-11-2024 10:18-0400 Body weight 77 kg Leticia Hylton [employer] Work Phone: [facility] 11-11-2024 10:18-0400 Diastolic blood pressure 66 mm[Hg] Leticia Hylton DO Work Phone: [facility] 11-11-2024 10:18-0400 Heart rate 107 /min Leticia Hylton DO Work Phone: [facility] 11-11-2024 10:18-0400 Systolic blood pressure 103 mm[Hg] Leticia Hylton DO Work Phone: [facility] 07-10-2024 11:25-0500 Body height 172.7 cm Jason Paredes MD Work Phone: [facility] 07-10-2024 11:25-0500 Body mass index (BMI) [Ratio] 26 kg/m2 Jason Paredes MD Work Phone: [facility] 07-10-2024 11:25-0500 Body weight 77.56 kg Jason Paredes MD Work Phone: [facility] 07-10-2024 11:25-0500 Diastolic blood pressure 68 mm[Hg] Jason Paredes MD Work Phone: [facility] 07-10-2024 11:25-0500 Systolic blood pressure 112 mm[Hg] Jason Paredes MD Work Phone: [facility] 03-12-2024 13:58-0400 Body height 175.3 cm Kvng Lewis MD Work Phone: [facility] 03-12-2024 13:58-0400 Body mass index (BMI) [Ratio] 25.39 kg/m2 Kvng Lewis MD Work Phone: [facility] 03-12-2024 13:58-0400 Body weight 78 kg Kvng Lewis MD Work Phone: [facility] 03-12-2024 13:58-0400 Diastolic blood pressure 58 mm[Hg] Kvng Lewis MD Work Phone: [facility] 03-12-2024 13:58-0400 Heart rate 69 /min Kvng Lewis MD Work Phone: [facility] 03-12-2024 13:58-0400 SaO2% (BldA) [Mass fraction] 97 % Kvng Lewis MD Work Phone: [facility] 03-12-2024 13:58-0400 Systolic blood pressure 100 mm[Hg] Kvng Lewis MD Work Phone: [facility] 12-13-2023 15:12-0400 Body weight 77.11 kg Jessica Klickitat PAIN MANAGEMENT NURSE PRACTITIONER.PRE [employer]LE COUNSELING AIDE Work Phone: [facility] 12-13-2023 15:12-0400 Diastolic blood pressure 87 mm[Hg] Jessica Klickitat PAIN MANAGEMENT NURSE PRACTITIONER.PRE PAROLE COUNSELING AIDE Work Phone: [facility] 12-13-2023 15:12-0400 Heart rate 80 /min Jessica Klickitat PAIN MANAGEMENT NURSE PRACTITIONER.PRE PAROLE COUNSELING AIDE Work Phone: [facility] 12-13-2023 15:12-0400 Respiratory rate 16 /min Jessica Klickitat PAIN MANAGEMENT NURSE PRACTITIONER.PRE PAROLE COUNSELING AIDE Work Phone: [facility] 12-13-2023 15:12-0400 Systolic blood pressure 139 mm[Hg] Jessica Klickitat PAIN MANAGEMENT NURSE PRACTITIONER.PRE PAROLE COUNSELING AIDE Work Phone: [facility] [facility] 12-07-2023 17:30-0400 Body height 175.26 cm No Primary Care Physician [facility] 12-07-2023 17:30-0400 Body temperature 97.1 [degF] No Primary Care Physician [facility] 12-07-2023 17:30-0400 Diastolic blood pressure 70 mm[Hg] No Primary Care Physician [facility] 12-07-2023 17:30-0400 Heart rate 68 /min No Primary Care Physician [facility] 12-07-2023 17:30-0400 Respiratory rate 15 /min No Primary Care Physician [facility] 12-07-2023 17:30-0400 SaO2% (BldA) [Mass fraction] 98 % No Primary Care Physician [facility] 12-07-2023 17:30-0400 Systolic blood pressure 130 mm[Hg] No Primary Care Physician [facility] 10-25-2023 22:04-0500 Body temperature 97.4 [degF] No Primary Care Physician [facility] 10-25-2023 22:04-0500 Diastolic blood pressure 64 mm[Hg] No Primary Care Physician [facility] 10-25-2023 22:04-0500 Heart rate 77 /min No Primary Care Physician [facility] 10-25-2023 22:04-0500 Respiratory rate 19 /min No Primary Care Physician [facility] 10-25-2023 22:04-0500 SaO2% (BldA) [Mass fraction] 100 % No Primary Care Physician [facility] 10-25-2023 22:04-0500 Systolic blood pressure 117 mm[Hg] No Primary Care Physician [facility] 10-25-2023 17:12-0500 Body mass index (BMI) [Ratio] 23.3 kg/m2 No Primary Care Physician [facility] 10-25-2023 17:12-0500 Body weight 71.7 kg No Primary Care Physician [facility] 10-25-2023 16:24-0500 Body height 175.26 cm No Primary Care Physician [facility] 10-18-2023 10:00-0500 Diastolic blood pressure 71 mm[Hg] No Primary Care Physician [facility] 10-18-2023 10:00-0500 Heart rate 62 /min No Primary Care Physician [facility] 10-18-2023 10:00-0500 Respiratory rate 16 /min No Primary Care Physician [facility] 10-18-2023 10:00-0500 SaO2% (BldA) [Mass fraction] 99 % No Primary Care Physician [facility] 10-18-2023 10:00-0500 Systolic blood pressure 115 mm[Hg] No Primary Care Physician [facility] 10-18-2023 08:00-0500 Body temperature 97.9 [degF] No Primary Care Physician [facility] 10-18-2023 05:28-0500 Body mass index (BMI) [Ratio] 24.6 kg/m2 No Primary Care Physician [facility] 10-18-2023 05:28-0500 Body weight 75.6 kg No Primary Care Physician [facility] 10-17-2023 15:25-0500 Body height 175.26 cm No Primary Care Physician [facility] 10-17-2023 11:51-0500 Body temperature 97.6 [degF] No Primary Care Physician [facility] 10-17-2023 11:51-0500 Diastolic blood pressure 58 mm[Hg] No Primary Care Physician [facility] 10-17-2023 11:51-0500 Heart rate 85 /min No Primary Care Physician [facility] 10-17-2023 11:51-0500 Respiratory rate 18 /min No Primary Care Physician [facility] 10-17-2023 11:51-0500 SaO2% (BldA) [Mass fraction] 98 % No Primary Care Physician [facility] 10-17-2023 11:51-0500 Systolic blood pressure 116 mm[Hg] No Primary Care Physician [facility] 10-17-2023 09:57-0500 Body height 175.26 cm No Primary Care Physician [facility] 10-17-2023 09:57-0500 Body mass index (BMI) [Ratio] 24.7 kg/m2 No Primary Care Physician [facility] 10-17-2023 09:57-0500 Body weight 76.2 kg No Primary Care Physician [facility] 09-25-2023 11:05-0500 Body temperature 97.6 [degF] No Primary Care Physician [facility] 09-25-2023 11:05-0500 Heart rate 76 /min No Primary Care Physician [facility] 09-25-2023 11:05-0500 Respiratory rate 14 /min No Primary Care Physician [facility] 09-25-2023 11:05-0500 SaO2% (BldA) [Mass fraction] 99 % No Primary Care Physician [facility] 09-25-2023 08:08-0500 Body mass index (BMI) [Ratio] 24.1 kg/m2 No Primary Care Physician [facility] 09-25-2023 08:08-0500 Body weight 74.19 kg No Primary Care Physician [facility] 09-25-2023 08:08-0500 Diastolic blood pressure 79 mm[Hg] No Primary Care Physician [facility] 09-25-2023 08:08-0500 Systolic blood pressure 140 mm[Hg] No Primary Care Physician [facility] 09-24-2023 20:19-0500 Body temperature 97 [degF] No Primary Care Physician [facility] 09-24-2023 20:19-0500 Diastolic blood pressure 66 mm[Hg] No Primary Care Physician [facility] 09-24-2023 20:19-0500 Heart rate 96 /min No Primary Care Physician [facility] 09-24-2023 20:19-0500 Respiratory rate 16 /min No Primary Care Physician [facility] 09-24-2023 20:19-0500 SaO2% (BldA) [Mass fraction] 97 % No Primary Care Physician [facility] 09-24-2023 20:19-0500 Systolic blood pressure 125 mm[Hg] No Primary Care Physician [facility] 09-24-2023 17:48-0500 Body height 175.26 cm No Primary Care Physician [facility] 09-24-2023 17:48-0500 Body mass index (BMI) [Ratio] 24.3 kg/m2 No Primary Care Physician [facility] 09-24-2023 17:48-0500 Body weight 74.7 kg No Primary Care Physician [facility] 09-20-2023 15:35-0500 Diastolic blood pressure 79 mm[Hg] No Primary Care Physician [facility] 09-20-2023 15:35-0500 Heart rate 79 /min No Primary Care Physician [facility] 09-20-2023 15:35-0500 Respiratory rate 16 /min No Primary Care Physician [facility] 09-20-2023 15:35-0500 SaO2% (BldA) [Mass fraction] 97 % No Primary Care Physician [facility] 09-20-2023 15:35-0500 Systolic blood pressure 107 mm[Hg] No Primary Care Physician [facility] 09-20-2023 10:21-0500 Body mass index (BMI) [Ratio] 25.9 kg/m2 No Primary Care Physician [facility] 09-20-2023 10:21-0500 Body temperature 97.9 [degF] No Primary Care Physician [facility] 09-20-2023 10:21-0500 Body weight 79.9 kg No Primary Care Physician [facility] 09-06-2023 21:32-0500 Heart rate 78 /min No Primary Care Physician [facility] 09-06-2023 21:32-0500 Respiratory rate 18 /min No Primary Care Physician [facility] 09-06-2023 21:32-0500 SaO2% (BldA) [Mass fraction] 99 % No Primary Care Physician [facility] 09-06-2023 21:30-0500 Diastolic blood pressure 72 mm[Hg] No Primary Care Physician [facility] 09-06-2023 21:30-0500 Systolic blood pressure 118 mm[Hg] No Primary Care Physician [facility] 09-06-2023 18:31-0500 Body mass index (BMI) [Ratio] 25.3 kg/m2 No Primary Care Physician [facility] 09-06-2023 18:31-0500 Body temperature 98.2 [degF] No Primary Care Physician [facility] 09-06-2023 18:31-0500 Body weight 77.9 kg No Primary Care Physician [facility] 08-22-2023 06:14-0500 Diastolic blood pressure 63 mm[Hg] No Primary Care Physician [facility] 08-22-2023 06:14-0500 Heart rate 64 /min No Primary Care Physician [facility] 08-22-2023 06:14-0500 Respiratory rate 16 /min No Primary Care Physician [facility] 08-22-2023 06:14-0500 SaO2% (BldA) [Mass fraction] 97 % No Primary Care Physician [facility] 08-22-2023 06:14-0500 Systolic blood pressure 99 mm[Hg] No Primary Care Physician [facility] 08-22-2023 02:45-0500 Body height 175.26 cm No Primary Care Physician [facility] 08-22-2023 02:45-0500 Body mass index (BMI) [Ratio] 26.4 kg/m2 No Primary Care Physician [facility] 08-22-2023 02:45-0500 Body temperature 98.7 [degF] No Primary Care Physician [facility] 08-22-2023 02:45-0500 Body weight 81.2 kg No Primary Care Physician [facility] 08-10-2023 08:00-0500 Body temperature 98.1 [degF] No Primary Care Physician [facility] 08-10-2023 08:00-0500 Diastolic blood pressure 71 mm[Hg] No Primary Care Physician [facility] 08-10-2023 08:00-0500 Heart rate 65 /min No Primary Care Physician [facility] 08-10-2023 08:00-0500 Respiratory rate 15 /min No Primary Care Physician [facility] 08-10-2023 08:00-0500 SaO2% (BldA) [Mass fraction] 97 % No Primary Care Physician [facility] 08-10-2023 08:00-0500 Systolic blood pressure 109 mm[Hg] No Primary Care Physician [facility] 08-10-2023 05:07-0500 Body mass index (BMI) [Ratio] 25.9 kg/m2 No Primary Care Physician [facility] 08-10-2023 05:07-0500 Body weight 79.9 kg No Primary Care Physician [facility] 08-07-2023 10:46-0500 Body height 175.26 cm No Primary Care Physician [facility] 08-07-2023 00:45-0500 Diastolic blood pressure 41 mm[Hg] No Primary Care Physician [facility] 08-07-2023 00:45-0500 Heart rate 114 /min No Primary Care Physician [facility] 08-07-2023 00:45-0500 Respiratory rate 18 /min No Primary Care Physician [facility] 08-07-2023 00:45-0500 SaO2% (BldA) [Mass fraction] 99 % No Primary Care Physician [facility] 08-07-2023 00:45-0500 Systolic blood pressure 136 mm[Hg] No Primary Care Physician [facility] 08-06-2023 21:33-0500 Body height 175.26 cm No Primary Care Physician [facility] 08-06-2023 21:33-0500 Body mass index (BMI) [Ratio] 25.9 kg/m2 No Primary Care Physician [facility] 08-06-2023 21:33-0500 Body temperature 97.8 [degF] No Primary Care Physician [facility] 08-06-2023 21:33-0500 Body weight 79.8 kg No Primary Care Physician [facility] 08-06-2023 14:00-0500 Respiratory rate 16 /min No Primary Care Physician [facility] 08-06-2023 08:53-0500 Body height 175.26 cm No Primary Care Physician [facility] 08-06-2023 08:53-0500 Body mass index (BMI) [Ratio] 26.3 kg/m2 No Primary Care Physician [facility] 08-06-2023 08:53-0500 Body temperature 97.6 [degF] No Primary Care Physician [facility] 08-06-2023 08:53-0500 Body weight 80.8 kg No Primary Care Physician [facility] 08-06-2023 08:53-0500 Diastolic blood pressure 83 mm[Hg] No Primary Care Physician [facility] 08-06-2023 08:53-0500 Heart rate 115 /min No Primary Care Physician [facility] 08-06-2023 08:53-0500 SaO2% (BldA) [Mass fraction] 97 % No Primary Care Physician [facility] 08-06-2023 08:53-0500 Systolic blood pressure 126 mm[Hg] No Primary Care Physician [facility] 06-26-2023 02:56-0400 Diastolic blood pressure 48 mm[Hg] No Primary Care Physician [facility] 06-26-2023 02:56-0400 Systolic blood pressure 96 mm[Hg] No Primary Care Physician [facility] 06-26-2023 01:13-0400 Heart rate 80 /min No Primary Care Physician [facility] 06-26-2023 01:13-0400 Respiratory rate 18 /min No Primary Care Physician [facility] 06-26-2023 01:13-0400 SaO2% (BldA) [Mass fraction] 97 % No Primary Care Physician [facility] 06-25-2023 23:14-0400 Body height 175.26 cm No Primary Care Physician [facility] 06-25-2023 23:14-0400 Body mass index (BMI) [Ratio] 26.5 kg/m2 No Primary Care Physician [facility] 06-25-2023 23:14-0400 Body temperature 97.4 [degF] No Primary Care Physician [facility] 06-25-2023 23:14-0400 Body weight 81.6 kg No Primary Care Physician [facility] 06-25-2023 11:37-0400 Heart rate 82 /min No Primary Care Physician [facility] 06-25-2023 11:37-0400 Respiratory rate 16 /min No Primary Care Physician [facility] 06-25-2023 11:37-0400 SaO2% (BldA) [Mass fraction] 97 % No Primary Care Physician [facility] 06-25-2023 08:21-0400 Body height 175.01 cm No Primary Care Physician [facility] 06-25-2023 08:21-0400 Body mass index (BMI) [Ratio] 25.8 kg/m2 No Primary Care Physician [facility] 06-25-2023 08:21-0400 Body temperature 97.4 [degF] No Primary Care Physician [facility] 06-25-2023 08:21-0400 Body weight 79.06 kg No Primary Care Physician [facility] 06-25-2023 08:21-0400 Diastolic blood pressure 45 mm[Hg] No Primary Care Physician [facility] 06-25-2023 08:21-0400 Systolic blood pressure 136 mm[Hg] No Primary Care Physician [facility] 05-31-2023 15:02-0400 Body weight 78.47 kg Jessica Klickitat PAIN MANAGEMENT NURSE PRACTITIONER.PRE PAROLE COUNSELING AIDE Work Phone: [facility] 05-31-2023 15:02-0400 Diastolic blood pressure 60 mm[Hg] Jessica Klickitat PAIN MANAGEMENT NURSE PRACTITIONER.PRE PAROLE COUNSELING AIDE Work Phone: [facility] 05-31-2023 15:02-0400 Heart rate 91 /min Jessica Klickitat PAIN MANAGEMENT NURSE PRACTITIONER.PRE PAROLE COUNSELING AIDE Work Phone: [facility] 05-31-2023 15:02-0400 Respiratory rate 18 /min Jessica Klickitat PAIN MANAGEMENT NURSE PRACTITIONER.PRE PAROLE COUNSELING AIDE Work Phone: [facility] 05-31-2023 15:02-0400 Systolic blood pressure 92 mm[Hg] Jessica Klickitat PAIN MANAGEMENT NURSE PRACTITIONER.PRE PAROLE COUNSELING AIDE Work Phone: [facility] 05-03-2023 09:00-0400 Respiratory rate 16 /min No Primary Care Physician [facility] 05-03-2023 04:23-0400 Body height 175.26 cm No Primary Care Physician [facility] 05-03-2023 04:23-0400 Body mass index (BMI) [Ratio] 26.9 kg/m2 No Primary Care Physician [facility] 05-03-2023 04:23-0400 Body temperature 97.7 [degF] No Primary Care Physician [facility] 05-03-2023 04:23-0400 Body weight 82.8 kg No Primary Care Physician [facility] 05-03-2023 04:23-0400 Diastolic blood pressure 68 mm[Hg] No Primary Care Physician [facility] 05-03-2023 04:23-0400 Heart rate 89 /min No Primary Care Physician [facility] 05-03-2023 04:23-0400 SaO2% (BldA) [Mass fraction] 97 % No Primary Care Physician [facility] 05-03-2023 04:23-0400 Systolic blood pressure 121 mm[Hg] No Primary Care Physician [facility] 04-29-2023 14:12-0400 Body temperature 98.3 [degF] No Primary Care Physician [facility] 04-29-2023 14:12-0400 Diastolic blood pressure 61 mm[Hg] No Primary Care Physician [facility] 04-29-2023 14:12-0400 Heart rate 62 /min No Primary Care Physician [facility] 04-29-2023 14:12-0400 Respiratory rate 18 /min No Primary Care Physician [facility] 04-29-2023 14:12-0400 SaO2% (BldA) [Mass fraction] 98 % No Primary Care Physician [facility] 04-29-2023 14:12-0400 Systolic blood pressure 132 mm[Hg] No Primary Care Physician [facility] 04-28-2023 12:55-0400 Body height 175.26 cm No Primary Care Physician [facility] 04-28-2023 12:55-0400 Body weight 78.69 kg No Primary Care Physician [facility] 04-27-2023 17:02-0400 Body mass index (BMI) [Ratio] 25.6 kg/m2 No Primary Care Physician [facility] 04-27-2023 16:45-0400 Diastolic blood pressure 61 mm[Hg] [facility] 04-27-2023 16:45-0400 Respiratory rate 18 /min [facility] 04-27-2023 16:45-0400 Systolic blood pressure 118 mm[Hg] [facility] 04-27-2023 16:13-0400 Body temperature 97.8 [degF] [facility] 04-27-2023 16:13-0400 Heart rate 90 /min [facility] 04-27-2023 13:23-0400 SaO2% (BldA) [Mass fraction] 96 % [facility] 04-27-2023 09:26-0400 Body height 175.01 cm [facility] 04-27-2023 09:26-0400 Body mass index (BMI) [Ratio] 28.1 kg/m2 [facility] 04-27-2023 09:26-0400 Body weight 86.2 kg [facility] 04-26-2023 23:47-0400 Respiratory rate 22 /min [facility] 04-26-2023 22:00-0400 Heart rate 81 /min [facility] 04-26-2023 22:00-0400 SaO2% (BldA) [Mass fraction] 97 % [facility] 04-26-2023 21:29-0400 Diastolic blood pressure 82 mm[Hg] [facility] 04-26-2023 21:29-0400 Systolic blood pressure 115 mm[Hg] [facility] 04-26-2023 20:25-0400 Body height 175.26 cm [facility] 04-26-2023 20:25-0400 Body mass index (BMI) [Ratio] 25.4 kg/m2 [facility] 04-26-2023 20:25-0400 Body temperature 98.6 [degF] [facility] 04-26-2023 20:25-0400 Body weight 78.21 kg [facility] 04-23-2023 13:00-0400 Respiratory rate 16 /min [facility] 04-23-2023 11:40-0400 Heart rate 52 /min [facility] 04-23-2023 08:33-0400 Body mass index (BMI) [Ratio] 26.9 kg/m2 [facility] 04-23-2023 08:33-0400 Body temperature 97.6 [degF] [facility] 04-23-2023 08:33-0400 Body weight 82.6 kg [facility] 04-23-2023 08:33-0400 Diastolic blood pressure 77 mm[Hg] [facility] 04-23-2023 08:33-0400 SaO2% (BldA) [Mass fraction] 96 % [facility] 04-23-2023 08:33-0400 Systolic blood pressure 123 mm[Hg] [facility] 03-22-2023 11:23-0400 Body temperature 98.1 [degF] Benito Desir MD Work Phone: [facility] 03-22-2023 11:23-0400 Diastolic blood pressure 72 mm[Hg] Benito Desir MD Work Phone: [facility] 03-22-2023 11:23-0400 Heart rate 61 /min Benito Desir MD Work Phone: [facility] 03-22-2023 11:23-0400 Respiratory rate 16 /min Benito Desir MD Work Phone: [facility] 03-22-2023 11:23-0400 SaO2% (BldA) [Mass fraction] 96 % Benito Desir MD Work Phone: [facility] 03-22-2023 11:23-0400 Systolic blood pressure 116 mm[Hg] Benito Desir MD Work Phone: [facility] 03-20-2023 03:02-0400 Body height 175.3 cm Benito Desir MD Work Phone: [facility] 03-20-2023 03:02-0400 Body mass index (BMI) [Ratio] 26.73 kg/m2 Benito Desir MD Work Phone: [facility] 03-20-2023 03:02-0400 Body weight 82.1 kg Benito Desir MD Work Phone: [facility] 01-25-2023 14:02-0400 Body weight 83.92 kg Autumn Valadez APRN.CNP Work Phone: [facility] 01-25-2023 14:02-0400 Diastolic blood pressure 64 mm[Hg] Autumn Valadez PAIN MANAGEMENT NURSE PRACTITIONER.PRE PAROLE COUNSELING AIDE Work Phone: [facility] 01-25-2023 14:02-0400 Heart rate 73 /min Autumn Valadez PAIN MANAGEMENT NURSE PRACTITIONER.PRE PAROLE COUNSELING AIDE Work Phone: [facility] 01-25-2023 14:02-0400 Respiratory rate 18 /min Autumn Valadez PAIN MANAGEMENT NURSE PRACTITIONER.PRE PAROLE COUNSELING AIDE Work Phone: [facility] 01-25-2023 14:02-0400 Systolic blood pressure 129 mm[Hg] Autumn Valadez PAIN MANAGEMENT NURSE PRACTITIONER.PRE PAROLE COUNSELING AIDE Work Phone: [facility] 12-08-2022 14:10-0400 Body height 175.3 cm Vivi Smith MD Work Phone: [facility] 12-08-2022 14:10-0400 Body temperature 97 [degF] Vivi Smith MD Work Phone: [facility] 12-08-2022 14:10-0400 Body weight 85 kg Vivi Smith MD Work Phone: [facility] 12-08-2022 14:10-0400 Diastolic blood pressure 86 mm[Hg] Vivi Smith MD Work Phone: [facility] 12-08-2022 14:10-0400 Heart rate 90 /min Vivi Smith MD Work Phone: [facility] 12-08-2022 14:10-0400 Respiratory rate 20 /min Vivi Smith MD Work Phone: [facility] 12-08-2022 14:10-0400 SaO2% (BldA) [Mass fraction] 98 % Vivi Smith MD Work Phone: [facility] 12-08-2022 14:10-0400 Systolic blood pressure 142 mm[Hg] Vivi Smith MD Work Phone: [facility] 11-07-2022 14:00-0400 Body temperature 97.3 [degF] Abelardo La MD Work Phone: [facility] 11-07-2022 14:00-0400 Body weight 90.72 kg Abelardo La MD Work Phone: [facility] 11-07-2022 14:00-0400 Diastolic blood pressure 72 mm[Hg] Abelardo La MD Work Phone: [facility] 11-07-2022 14:00-0400 Heart rate 94 /min Abelardo La MD Work Phone: [facility] 11-07-2022 14:00-0400 Respiratory rate 16 /min Abelardo La MD Work Phone: [facility] 11-07-2022 14:00-0400 SaO2% (BldA) [Mass fraction] 95 % Abelardo La MD Work Phone: [facility] 11-07-2022 14:00-0400 Systolic blood pressure 129 mm[Hg] Abelardo La MD Work Phone: [facility] 10-22-2022 16:14-0500 Body temperature 99.5 [degF] Abelardo La MD Work Phone: [facility] 10-22-2022 16:14-0500 Body weight 86.18 kg Abelardo La MD Work Phone: [facility] 10-22-2022 16:14-0500 Diastolic blood pressure 96 mm[Hg] Abelardo La MD Work Phone: [facility] 10-22-2022 16:14-0500 Heart rate 143 /min Abelardo La MD Work Phone: [facility] 10-22-2022 16:14-0500 Respiratory rate 20 /min Abelardo La MD Work Phone: [facility] 10-22-2022 16:14-0500 SaO2% (BldA) [Mass fraction] 94 % Abelardo La MD Work Phone: [facility] 10-22-2022 16:14-0500 Systolic blood pressure 150 mm[Hg] Abelardo La MD Work Phone: [facility] 09-19-2022 13:18-0500 Body temperature 97.5 [degF] Injection/[facility] 09-19-2022 13:18-0500 Diastolic blood pressure 62 mm[Hg] Injection/[facility] 09-19-2022 13:18-0500 Heart rate 50 /min Injection/[facility] 09-19-2022 13:18-0500 Respiratory rate 18 /min Injection/[facility] 09-19-2022 13:18-0500 Systolic blood pressure 123 mm[Hg] Injection/[facility] 08-16-2022 15:14-0500 Body weight 87.09 kg Autumn Valadez APRN.PRE PAROLE COUNSELING AIDE Work Phone: [facility] 08-16-2022 15:14-0500 Diastolic blood pressure 58 mm[Hg] Autumn Valadez PAIN MANAGEMENT NURSE PRACTITIONER.PRE PAROLE COUNSELING AIDE Work Phone: [facility] 08-16-2022 15:14-0500 Heart rate 68 /min Autumn Valadez PAIN MANAGEMENT NURSE PRACTITIONER.PRE PAROLE COUNSELING AIDE Work Phone: [facility] 08-16-2022 15:14-0500 SaO2% (BldA) [Mass fraction] 95 % Autumn Valadez PAIN MANAGEMENT NURSE PRACTITIONER.PRE PAROLE COUNSELING AIDE Work Phone: [facility] 08-16-2022 15:14-0500 Systolic blood pressure 113 mm[Hg] Autumn aVladez PAIN MANAGEMENT NURSE PRACTITIONER.PRE PAROLE COUNSELING AIDE Work Phone: [facility] 08-05-2022 11:37-0500 Body temperature 97.2 [degF] Injection/[facility] 08-05-2022 11:37-0500 Diastolic blood pressure 70 mm[Hg] Injection/[facility] 08-05-2022 11:37-0500 Heart rate 68 /min Injection/[facility] 08-05-2022 11:37-0500 Respiratory rate 18 /min Injection/[facility] 08-05-2022 11:37-0500 Systolic blood pressure 119 mm[Hg] Injection/[facility] 06-07-2022 14:14-0400 Body height 175.3 cm Phoebe Easter PAIN MANAGEMENT NURSE PRACTITIONER.PRE PAROLE COUNSELING AIDE Work Phone: [facility] 06-07-2022 14:14-0400 Body weight 82.33 kg Phoebe Easterday PAIN MANAGEMENT NURSE PRACTITIONER.PRE PAROLE COUNSELING AIDE Work Phone: [facility] 06-07-2022 14:14-0400 Diastolic blood pressure 70 mm[Hg] Phoebe Easterday PAIN MANAGEMENT NURSE PRACTITIONER.PRE PAROLE COUNSELING AIDE Work Phone: [facility] 06-07-2022 14:14-0400 Systolic blood pressure 118 mm[Hg] Phoebe Easter PAIN MANAGEMENT NURSE PRACTITIONER.PRE PAROLE COUNSELING AIDE Work Phone: [facility] 04-18-2022 08:13-0400 Body height 175.3 cm Dishon Kamwesa PAIN MANAGEMENT NURSE PRACTITIONER.PRE PAROLE COUNSELING AIDE Work Phone: [facility] 04-18-2022 08:13-0400 Body temperature 96.91 [degF] Dishon Kamwesa PAIN MANAGEMENT NURSE PRACTITIONER.PRE PAROLE COUNSELING AIDE Work Phone: [facility] 04-18-2022 08:13-0400 Body weight 81.65 kg Dishon Kamwesa PAIN MANAGEMENT NURSE PRACTITIONER.PRE PAROLE COUNSELING AIDE Work Phone: [facility] 04-18-2022 08:13-0400 Diastolic blood pressure 72 mm[Hg] Dishon Kamwesa PAIN MANAGEMENT NURSE PRACTITIONER.PRE PAROLE COUNSELING AIDE Work Phone: [facility] 04-18-2022 08:13-0400 Heart rate 78 /min Dishon Kamwesa PAIN MANAGEMENT NURSE PRACTITIONER.PRE PAROLE COUNSELING AIDE Work Phone: [facility] 04-18-2022 08:13-0400 SaO2% (BldA) [Mass fraction] 97 % Dishon Kamwesa PAIN MANAGEMENT NURSE PRACTITIONER.PRE PAROLE COUNSELING AIDE Work Phone: [facility] 04-18-2022 08:13-0400 Systolic blood pressure 120 mm[Hg] Dishon Kamwesa PAIN MANAGEMENT NURSE PRACTITIONER.PRE PAROLE COUNSELING AIDE Work Phone: [facility] 03-11-2022 12:07-0400 Body temperature 96.8 [degF] [facility] 03-11-2022 12:07-0400 Diastolic blood pressure 51 mm[Hg] [facility] 03-11-2022 12:07-0400 Heart rate 55 /min [facility] 03-11-2022 12:07-0400 Respiratory rate 16 /min [facility] 03-11-2022 12:07-0400 Systolic blood pressure 101 mm[Hg] [facility] 03-07-2022 14:00-0400 Body temperature 96.91 [degF] Injection/[facility] 03-07-2022 14:00-0400 Diastolic blood pressure 65 mm[Hg] Injection/[facility] 03-07-2022 14:00-0400 Heart rate 83 /min Injection/[facility] 03-07-2022 14:00-0400 Respiratory rate 16 /min Injection/[facility] 03-07-2022 14:00-0400 Systolic blood pressure 124 mm[Hg] Injection/[facility] 12-28-2021 16:16-0400 Body temperature 97.88 [degF] ANITA COMER MD [facility] 12-28-2021 16:16-0400 Diastolic blood pressure 81 mm[Hg] ANITA COMER MD [facility] 12-28-2021 16:16-0400 Heart rate 78 /min ANITA COMER MD [facility] 12-28-2021 16:16-0400 Respiratory rate 20 /min ANITA COMER MD [facility] 12-28-2021 16:16-0400 Systolic blood pressure 134 mm[Hg] ANITA COMER MD [facility] 05-31-2021 20:30-0400 SaO2% (BldA) [Mass fraction] 100 % [facility] Comment on above: Order Comment: [place]: M Performed By: #### L [id number] ####[facility] [id number] [place], [place] [address]Cr# [phone] Encounters Encounter Date Encounter Type Care Provider Facility Start: 03-31-2025 End: 03-31-2025 ambulatory Zebulun Beam VSC Facility:[facility] Start: 03-17-2025 End: 03-19-2025 Evaluation and management of inpatient Zebulun Beam VSC Facility:[facility] Start: 03-17-2025 ambulatory Zebulun Beam [facility]SC Facili ty:[facility] Start: 03-06-2025 ambulatory Dangelo Encarnacion Fac ility:[facility] Start: 03-06-2025 End: 03-08-2025 Evaluation and management of inpatient Dangelo Encarnacion Facility:[facility] Start: 03-05-2025 End: 03-05-2025 ambulatory Truman Marlen Facility:[facility] Start: 02-25-2025 End: 02-25-2025 ambulatory Zebulun Beam VSC Facility:[facility] Start: 02-18-2025 ambulatory Ileana Lobo Facility:[facility] Start: 02-18-2025 End: 02-19-2025 Evaluation and management of inpatient Ileana Lobo Facility:[facility] Start: 02-03-2025 End: 02-03-2025 ambulatory Zebulun Beam VSC Facility:[facility] Start: 01-27-2025 End: 01-27-2025 Office outpatient visit 25 minutes Mishel Ortez PA-C Work Phone: [facility] [place] Comment on above: Psoriasis vulgaris ( Primary [...] and management of inpatient David Watson Luis Facility:[facility] Start: 01-08-2025 End: 01-08-2025 ambulatory Zebulun Beam VSC Facility:[facility] Start: 01-07-2025 End: 01-08-2025 Refill Mishel Ortez PA-C Work Phone: [facility] Start: 12-25-2024 End: 12-25-2024 ambulatory Zebulun Beam [facility] Facility:[facility] Start: 12-19-2024 End: 12-23-2024 Telephone encounter Manasa Cantu PA-C Work Phone: [facility] Comment on above: Appointment Request (rayray) Start: 12-14-2024 End: 12-16-2024 ambulatory Dangelo Alysha Facility:[facility] Start: 11-28-2024 End: 11-28-2024 ambulatory Brit Joseph [facility] Facility:[facility] Start: 11-11-2024 End: 11-11-2024 Telephone encounter Leticia Hylton DO Work Phone: Gastroenterology Start: 11-11-2024 End: 11-11-2024 Subsequent hospital visit by physician [facility] Comment on above: Chronic idiopathic c onstipation [K59.04] Start: 11-11-2024 End: 11-11-2024 ambulatory LETICIA HYLTON Facility:[facility] Start: 11-11-2024 End: 11-11-2024 Patient encounter procedure Leticia Hylton DO Work Phone: Gastroenterology Comment on above: Chronic idiopathic c onstipation (Primary Dx); Abdominal pain, suprapubic Start: 11-05-2024 ambulatory Kenyetta Suarez Facility:[facility] Start: 11-05-2024 End: 11-06-2024 Evaluation and management of inpatient Kenyetta Suarez Facility:[facility] Start: 11-05-2024 End: 11-05-2024 Telephone encounter Leticia Hylton DO Work Phone: Gastroenterology Comment on above: Patient states vignesh tinajero major issues Start: 11-03-2024 End: 11-04-2024 Emergency department patient visit Sergey Islas Facility:[facility] Start: 10-18-2024 End: 10-21-2024 ambulatory Ramya Lombardo Facility:[facility] Start: 10-02-2024 End: 10-10-2024 Telephone encounter Jessica Guerrero APRN.CNP Work Phone: Endocrinology Comment on above: Forms Start: 09-02-2024 End: 09-02-2024 Emergency department patient visit No Primary Care Physician Facility:[facility] Start: 09-02-2024 End: 09-02-2024 ambulatory Leticia Hylton DO Work Phone: Gastroenterology Comment on above: Chronic idiopathic c onstipation (Primary Dx); Gastroparesis Start: 09-02-2024 End: 09-02-2024 Telemedicine consultation with patient Leticia Hylton DO Work Phone: Gastroenterology Start: 08-07-2024 End: 08-07-2024 Telephone encounter Manasa Cantu PA-C Work Phone: [facility] [employer] Comment on above: Prior Authorization (Skyrizi renewal) Start: 08-02-2024 ambulatory Vamsi Duvall Facili ty:[facility] Start: 08-02-2024 End: 08-03-2024 Evaluation and management of inpatient Vamsi Duvall Facility:[facility] Start: 08-01-2024 End: 08-01-2024 Emergency department patient visit Olvin Ibarra Facility:[facility] Start: 2024 End: 08-06-2024 ambulatory Edie Bear Facility:[facility] Start: 07-23-2024 End: 07-23-2024 ambulatory KVNG CORRIGANENS Facility:[facility] Start: 07-23-2024 End: 07-23-2024 Nursing evaluation [...] Phone: Endocrinology Start: 07-11-2024 End: 07-27-2024 ambulatory [facility] Facility:[facility] Start: 07-10-2024 End: 07-10-2024 ambulatory [facility] Facility:[facility] Start: 07-10-2024 End: 07-10-2024 ambulatory [facility] Facility:[facility] Start: 07-10-2024 End: 07-10-2024 Patient encounter [...] encounter status Jason Paredes MD Work Phone: [facility] Start: 06-28-2024 End: 07-05-2024 ambulatory [facility] Facility:[facility] Start: 06-24-2024 End: 06-25-2024 Telephone encounter Jessica Guerrero APRN.CNP Work Phone: Internal Medicine [place] Comment on above: diabetic supplies Start: 06-17-2024 End: 06-17-2024 Telephone encounter Kvng Lewis MD Work Phone: Endocrinology Comment on above: Forms Start: 06-07-2024 ambulatory Ileana Lobo Facility[facility] Start: 06-07-2024 End: 06-11-2024 Evaluation and management of inpatient Ileana Lobo Facility:[facility] Start: 05-28-2024 End: 06-27-2024 ambulatory Edie Bear Facility:[facility] Start: 05-21-2024 End: 05-27-2024 ambulatory [facility] Facility:[facility] Start: 05-16-2024 End: 05-24-2024 Telephone encounter Jessica Klickitat PAIN MANAGEMENT NURSE PRACTITIONER.PRE PAROLE COUNSELING AIDE Work Phone: Endocrinology Comment on above: insulin pump Start: 05-06-2024 End: 05-06-2024 Telephone encounter Leesa CASANOVA-C Work Phone: [facility] Comment on above: Prior Authorization (Rayray renewal) Start: 04-21-2024 End: 04-21-2024 Emergency department patient visit Marc Carl Facility:[facility] Start: 04-16-2024 End: 04-16-2024 Refill Leesa Woodsonel PA-C Work Phone: [facility] Start: 04-08-2024 Refill Jessica Klickitat PAIN MANAGEMENT NURSE PRACTITIONER.PRE PAROLE COUNSELING AIDE Work Phone: Internal Medicine [place] Comment on above: Refill Request Start: 03-12-2024 End: 03-12-2024 ambulatory VIVI LETY SMITH Facility:[facility] Start: 03-12-2024 End: 03-12-2024 Patient encounter [...] Telephone encounter Leesa Huddleston PA-C Work Phone: [facility] Comment on above: Medication Problem ( Skyrizi) Start: 12-15-2023 ambulatory Kyara Wu [facility] [place] Comment on above: Primary Care Coordin ator Chronic Care Start: 12-13-2023 End: 12-13-2023 ambulatory PRASADAngel SMITH Facility:[facility] Start: 12-13-2023 End: 12-13-2023 Patient encounter procedure Jessica Guerrero APRN.CNP Work Phone: Endocrinology Comment on above: Type 1 diabetes kasi itus with hyperglycemia, with long-term current use of insulin (HCC) (Primary Dx); Insulin pump status Start: 12-07-2023 End: 12-07-2023 Emergency department patient visit No Primary Care Physician [facility] Work Phone: Start: 11-14-2023 End: 11-14-2023 Office outpatient visit 15 minutes Leesa Huddleston PA-C Work Phone: [facility] Comment on above: Psoriasis vulgaris ( Primary Dx); Multiple benign nevi Start: 11-10-2023 Patient Outreach Kyara Wu [facility] [place] [facility] Comment on above: Transition Of Care Start: 11-03-2023 Patient Outreach Kyara Wu [facility] [place] [facility] Comment on above: Transition Of Care Start: 10-27-2023 Patient Outreach Kyara Wu Supervisor [place] [facility] Comment on above: Transition Of Care Start: 10-25-2023 End: 10-25-2023 Emergency department patient visit No Primary Care Physician [facility] Work Phone: Start: 10-20-2023 Patient Outreach Kyara Wu Supervisor [place] [facility] Comment on above: Transition Of Care Start: 10-19-2023 Patient Outreach Kyara garza RN [facility] Supervisor [place] [facility] Comment on above: Transition Of Care ( Message) Start: 10-18-2023 Non-patient / Non-visit No [facility] Physician [facility] Inpatient Physicians Work Phone: Start: 10-17-2023 End: 10-18-2023 Evaluation and management of inpatient No Primary Care Physician [facility]Intensive Care Unit Work Phone: Start: 10-12-2023 [facility] [place] [facility] Comment on above: Primary Care Coordin ator Chronic Care Start: 10-02-2023 Telephone encounter Kvng Brink MD Work Phone: Endocrinology Comment on above: Forms (DME: [facility] for pump supplies) Start: 09-29-2023 ambulatory [facility] [place] [facility] Comment on above: Primary Care Coordin ator Chronic Care Start: 09-25-2023 End: 09-25-2023 Emergency department patient visit No Primary Care Physician [facility]Emer[facility] Work Phone: Start: 09-24-2023 End: 09-24-2023 Emergency department patient visit No Primary Care Physician [facility]Emer[facility] Work Phone: Start: 09-21-2023 Refill Vivi Smith MD Work Phone: Internal Medicine [place] Comment on above: Refill Request Start: 09-20-2023 End: 09-20-2023 Emergency department patient visit No Primary Care Physician [facility] Work Phone: Start: 09-06-2023 End: 09-06-2023 Emergency department patient visit No Primary Care Physician [facility] Work Phone: Start: 08-22-2023 End: 08-22-2023 Emergency department patient visit No [facility]: Start: 08-17-2023 Telephone encounter Leesa Huddleston PA-C Work Phone: [facility] D[facility] Start: 08-15-2023 Patient Outreach Kyara garza RN [facility] Supervisor [place] [facility] Comment on above: Transition Of Care Start: 08-10-2023 Non-patient / Non-visit No Elaine [facility] Physician [facility] Inpatient Physicians Work Phone: Start: 08-09-2023 Non-patient / Non-visit No [facility] Inpatient Physicians Work Phone: Start: 08-08-2023 Non-patient / Non-visit No [facility] Physician [facility] Inpatient Physicians Work Phone: Start: 08-07-2023 End: 08-10-2023 Evaluation and management of inpatient No Primary Care Physician [facility]Int[facility] Care [facility] Work Phone: Start: 08-06-2023 End: 08-06-2023 Emergency department patient visit No Primary Care Physician [facility]Emer[facility] Work Phone: Start: 06-25-2023 End: 06-26-2023 Emergency department patient visit No Primary Care Physician [facility]Emer[facility] Work Phone: Start: 06-25-2023 End: 06-25-2023 Emergency department patient visit No Primary Care Physician [facility]Emer[facility] Work Phone: Start: 05-31-2023 End: 05-31-2023 Patient encounter procedure Jessica Guerrero APRN.PRE PAROLE COUNSELING AIDE Work Phone: Endocrinology Comment on above: Type 1 diabetes kasi itus with hyperglycemia, with long-term current use of insulin (HCC) (Primary Dx); Insulin pump status Start: 05-03-2023 End: 05-03-2023 Emergency department patient visit No Primary Care Physician [facility] Work Phone: Start: 05-02-2023 Refill Leesa swain PA-C Work Phone: [facility] Comment on above: Psoriasis vulgaris ( Primary Dx) Start: 04-29-2023 Non-patient / Non-visit No [facility] Physician [facility] Inpatient Physicians Work Phone: Start: 04-28-2023 Non-patient / Non-visit No Elaine [facility] Physician [facility] Inpatient Physicians Work Phone: Start: 04-27-2023 Non-patient / Non-visit No [facility] Physician [facility] Inpatient Physicians Work Phone: Start: 04-27-2023 End: 04-29-2023 Evaluation and management of inpatient [facility]-Medical Surgical 3 Work Phone: Start: 04-27-2023 End: 04-29-2023 observation encounter No [facility] [facility] Work Phone: Start: 04-26-2023 End: 04-26-2023 Emergency department patient visit [facility] Work Phone: Start: 04-23-2023 End: 04-23-2023 Emergency department patient visit [facility] Work Phone: Start: 04-06-2023 End: 04-06-2023 Emergency department patient visit VIVI SMITH Facility:[id number] Start: 03-20-2023 End: 03-22-2023 [facility] Start: 03-20-2023 End: 03-22-2023 Emergency department patient visit Mariel Gagnon MD Work Phone: [facility] Start: 02-15-2023 Patient encounter procedure [facility] Provider [facility] Department Start: 02-08-2023 Patient Outreach Kyara garza RN [facility] Supervisor [place] Department Comment on above: Transition Of Care Start: 02-01-2023 Telephone encounter Vivi Smith MD Work Phone: [facility] [place] Primary Comment on above: Results Start: 01-31-2023 End: 02-04-2023 Evaluation and management of inpatient VIVI SMITH Facility:[id number] Start: 01-25-2023 End: 01-25-2023 ambulatory VIVI SMITH Facility:[id number] Start: 01-25-2023 End: 01-25-2023 Patient encounter procedure Autumn Valadez PAIN MANAGEMENT NURSE PRACTITIONER.PRE PAROLE COUNSELING AIDE Work Phone: Endocrinology Comment on above: Type 1 diabetes kasi itus with hyperglycemia, with long-term current use of insulin (HCC) (Primary Dx); Insulin pump status; Screening for diabetic retinopathy Start: 01-25-2023 End: 01-25-2023 Nursing evaluation of patient and report Nurse [facility] [place] Work Phone: [facility] Primary Comment on above: Left flank pain (Elaine ten Dx); Dysuria Start: 01-24-2023 Telephone encounter Vivi Smith MD Work Phone: [facility] Primary Comment on above: Orders Results Appointment Start: 01-20-2023 End: 01-20-2023 ambulatory VIVI SMITH Facility:[id number] Start: 01-12-2023 End: 01-13-2023 ambulatory MADONNA TORO Facility:[id number] Start: 01-09-2023 E-mail encounter fro m caregiver Phoebe Mckeon PAIN MANAGEMENT NURSE PRACTITIONER.PRE PAROLE COUNSELING AIDE Work Phone: [facility] Start: 01-09-2023 Patient encounter procedure Phoebe Rober Mckeon PAIN MANAGEMENT NURSE PRACTITIONER.PRE PAROLE COUNSELING AIDE Work Phone: Obstetrics and Gynecology Comment on above: Request an Appointme nt Start: 01-03-2023 Telephone encounter Kvng Brink MD Work Phone: Endocrinology Comment on above: Forms Start: 12-09-2022 Telephone encounter Vivi Smith MD Work Phone: [facility] Primary Comment on above: Patient Question Start: 12-08-2022 End: 12-08-2022 Office outpatient new 30 minutes Vivi Smith MD Work Phone: [facility] Primary Comment on above: Gastroparesis due to DM (HCC) (Primary Dx); Aortic root aneurysm (HCC); Primary hypertension; Chronic nausea; 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); Marfan syndrome; PTSD (post-traumatic stress disorder); Generalized abdominal pain Start: 11-07-2022 End: 11-07-2022 Patient encounter procedure Abelardo La MD Work Phone: [facility] Comment on above: Viral conjunctivitis (Primary Dx) Start: 11-04-2022 Refill Leesa swain PA-C Work Phone: [facility] Start: 11-02-2022 Telephone encounter Kvng Brink MD Work Phone: Endocrinology Comment on above: Forms Start: 10-31-2022 Telephone encounter Kvng Brink MD Work Phone: Endocrinology Comment on above: Insurance Authorizat ion; Forms Start: 10-22-2022 End: 10-22-2022 Patient encounter procedure Abelardo La MD Work Phone: [facility] Comment on above: Lower abdominal pain (Primary Dx) Start: 10-04-2022 End: 10-04-2022 Office outpatient visit 25 minutes Leesa Huddleston PA-C Work Phone: Dermatology [facility] Comment on above: Psoriasis vulgaris ( Primary Dx); Folliculitis; Encounter for long-term current use of high risk medication; Screening for viral disease Start: 09-19-2022 End: 09-19-2022 ambulatory Injection/Port [facility] Comment on above: Type 1 diabetes kasi itus with other specified complication (HCC) (Primary Dx) Start: 09-06-2022 Telephone encounter Autumn peralta APRN.PRE PAROLE COUNSELING AIDE Work Phone: Endocrinology Comment on above: Medication Problem Start: 08-16-2022 End: 08-16-2022 Patient encounter procedure Autumn Valadez APRN.PRE PAROLE COUNSELING AIDE Work Phone: Endocrinology Comment on above: Type 1 diabetes kasi itus with hyperglycemia, with long-term current use of insulin (HCC) (Primary Dx); Insulin pump status Start: 08-05-2022 End: 08-05-2022 ambulatory [facility] Comment on above: [...] patient Kvng Lewis MD Work Phone: [facility] Start: 07-06-2022 Telephone encounter Kvng Brink MD Work Phone: Endocrinology Comment on above: Appointment Start: 06-13-2022 Telephone encounter Tawanda soto DO Work Phone: Endocrinology Comment on above: Rodrigue EMMANUELN for insu bill pump/pump supplies Start: 06-07-2022 End: 06-07-2022 Patient encounter procedure Phoebe Mckeon PAIN MANAGEMENT NURSE PRACTITIONER.PRE PAROLE COUNSELING AIDE Work Phone: Obstetrics and Gynecology Comment on above: Gonorrhea (Primary D x); Screen for sexually transmitted diseases Start: 06-07-2022 Telephone encounter Cyndy walker MD Work Phone: Endocrinology Comment on above: Forms ([facility]) Start: 05-13-2022 ambulatory Tawanda Khoury DO Work Phone: Endocrinology Comment on above: Pump Data/30 day glu cose logs Start: 05-13-2022 E-mail encounter fro m caregiver Tawanda Khoury DO Work Phone: [facility] Start: 05-12-2022 End: 05-12-2022 Nursing evaluation of patient and report Nurse Grocery Clerk Marking [facility] Work Phone: Obstetrics and Gynecology Comment on above: Gonorrhea (Primary D x) Start: 05-10-2022 ambulatory Phoebe Mcguire rday PAIN MANAGEMENT NURSE PRACTITIONER.PRE PAROLE COUNSELING AIDE Work Phone: Obstetrics and Gynecology Comment on above: Question regarding S YPHILIS TOTAL W/REFLEX Start: 05-10-2022 Telephone encounter Phoebe conde PAIN MANAGEMENT NURSE PRACTITIONER.PRE PAROLE COUNSELING AIDE Work Phone: Obstetrics and Gynecology Comment on above: Results; Orders Start: 05-02-2022 Refill Tawanda Khoury DO Work Phone: Endocrinology Comment on above: Refill Request Refill Request (Darcy ess) Start: 04-18-2022 End: 04-18-2022 Patient encounter procedure Dashawn Cain PAIN MANAGEMENT NURSE PRACTITIONER.PRE PAROLE COUNSELING AIDE Work Phone: [facility] Comment on above: Menstrual irregulari ty (Primary Dx); Screening for STD (sexually transmitted disease); Chronic nausea Start: 03-11-2022 End: 03-11-2022 ambulatory Chair 9 [facility] [place] Comment on above: Type 1 diabetes kasi itus with other specified complication (HCC) (Primary Dx) Start: 03-10-2022 Refill Dashawn Cain PAIN MANAGEMENT NURSE PRACTITIONER.PRE PAROLE COUNSELING AIDE Work Phone: [facility] Start: 03-07-2022 End: 03-07-2022 ambulatory Injection/Port [facility] Comment on above: Type 1 diabetes kasi itus with other specified complication (HCC) (Primary Dx) Start: 03-01-2022 Chart abstracting Jayjay cobb MD Work Phone: Infusion Center Start: 01-29-2022 End: 01-29-2022 Subsequent hospital visit by physician Sourav Butts MD Work Phone: [facility] Comment on above: DKA,TYPE 1 Start: 01-27-2022 End: 01-27-2022 Subsequent hospital visit by physician Dashawn Cain APRN.PRE PAROLE COUNSELING AIDE Work Phone: [facility] Comment on [...] Emergency department patient visit ANITA COMER MD [facility] Start: 12-27-2021 End: 12-27-2021 Subsequent hospital visit by physician Latosha PEREZW [facility] Comment on above: VOMITTING/CFD/TRIAGE Start: 12-25-2021 [...] 02-24-2017 Emergency department patient visit [facility] Start: 12-05-2014 Patient encounter status [facility] [...] 12-13-2023 Hemoglobin A1c/Hemoglobin.total in Blood Jessica Greener PAIN MANAGEMENT NURSE PRACTITIONER.PRE PAROLE COUNSELING AIDE Work Phone: Start: 09-24-2023 Plain chest X-ray [...] 05-31-2023 Hemoglobin A1c/Hemoglobin.total in Blood Jessica Greener PAIN MANAGEMENT NURSE PRACTITIONER.PRE PAROLE COUNSELING AIDE Work Phone: Start: 04-28-2023 Urine culture No Primar y Care Physician Start: 04-26-2023 CT angiography of ch est with contrast Start: 04-23-2023 CT of thorax, abdome n and pelvis with contrast Start: 03-22-[address] tammy Ireland MD Work Phone: Start: 03-22-2023 Glucose measurement Gabo Ireland MD Work Phone: Start: 03-22-2023 Glucose measurement Gabo Ireland MD Work Phone: Start: 03-22-2023 Basic metabolic pane l calcium total Judith Edmondsno MD Work Phone: Start: 03-22-2023 Glucose measurement [...] MD Work Phone: Start: 03-20-[address] tammy Ireland MD Work Phone: Start: 03-20-2023 Ecg routine ecg w/le ast 12 lds w/i&r Siddharth Gagnon MD Work Phone: Start: 03-20-[address] tammy Ireland MD Work Phone: Start: [...] 01-25-2023 Hemoglobin A1c/Hemoglobin.total in Blood Autumn Valadez PAIN MANAGEMENT NURSE PRACTITIONER.PRE PAROLE COUNSELING AIDE Work Phone: Start: 01-25-2023 Urnls dip stick/tabl et rgnt auto w/o microscopy Vivi Smith MD Work Phone: Start: 08-16-2022 Hemoglobin A1c/Hemoglobin.total in Blood Autumn Valadez PAIN MANAGEMENT NURSE PRACTITIONER.PRE PAROLE COUNSELING AIDE Work Phone: Start: 05-10-2022 Microscopic observat ion [Identifier] in Cervix by Cyto stain Leesa Huddleston PA-C Work Phone: Start: 04-18-2022 Adult depression scr eening assessment Dashawn Cain PAIN MANAGEMENT NURSE PRACTITIONER.PRE PAROLE COUNSELING AIDE Work Phone: Start: 12-28-2021 Ecg routine ecg [...] (1 - 1-dose 75+ series) [facility] Start: 2054 RSV Immunization aged 60 or older (1 - 1-dose 60+ series) RSV Immunization aged 60 or older (1 - 1-dose 60+ series) [facility] Start: 2044 Zoster Vaccines (1 of 2) Zoster Vaccines (1 of 2) [facility] Start: 07-10-2029 Screening for malignant neoplasm of cervix Cervical Cancer Screening [facility] Start: 07-10-2027 Screening for malignant neoplasm of cervix [facility] Start: 02-04-2026 End: 02-04-2026 Patient encounter procedure 02/04/2026 10:00 AM EDT Office [facility] [address] [place] [phone] Mishel Ortez PA-C [address] [place], [place] [id number] [facility] Start: 11-11-2025 BP Controlled (<130/80) BP Controlled (<130/80) [facility] Start: 07-30-2025 End: 07-30-2025 Patient encounter procedure 07/30/2025 9:20 AM EST Office Visit [facility] [address] [place] [phone] Mishel Ortez PA-C [address] [place], [place] [id number] [facility] Start: 07-14-2025 End: 07-14-2025 Patient encounter procedure 07/14/2025 10:30 AM EST Office Visit OB/Gynecology [address] [place], [place] [id number] Jason Paredes MD [address] [place] [address] Annual OB/Gynecology Comment on above: Annual Start: 07-10-2025 BP Controlled (<130/80) BP Controlled (<130/80) [facility] Start: 05-10-2025 PAP TESTING PAP TESTING [facility] Start: 05-10-2025 Screening for malignant neoplasm of cervix [facility] Start: 04-28-2025 Influenza vaccination Influenza Vaccine (Season Ended) [facility] Start: 03-12-2025 BP Controlled (<130/80) BP Controlled (<130/80) [facility] Start: 03-12-2025 Hemoglobin A1c measurement Diabetes: Hemoglobin A1C [facility] Start: 01-27-2025 End: 01-27-2026 CBC W Auto Differential panel - Blood CBC auto differential Lab Routine Encounter for long-term (current) use of medications Expected: 01/27/2025 (Approximate), Expires: 01/27/2026 [facility] Work Phone: Comment on above: Expected: 01/27/2025 (Approximate), Expi res: 01/27/2026 Start: 01-27-2025 End: 01-27-2026 Comprehensive metabolic 1998 panel - Serum or Plasma Comprehensive metabolic panel Lab Routine Encounter for long-term (current) use of medications Expected: 01/27/2025 (Approximate), Expires: 01/27/2026 [facility] Comment on above: Expected: 01/27/2025 (Approximate), Expi res: 01/27/2026 Start: 01-27-2025 End: 01-27-2026 Hepatitis A virus IgM Ab [Presence] in Serum or Plasma by Immunoassay Hepatitis A antibody, IgM Lab Routine Screening for viral disease Encounter for long-term (current) use of medications Expected: 01/27/2025 (Approximate), Expires: 01/27/2026 [facility] Comment on above: Expected: 01/27/2025 (Approximate), Expi res: 01/27/2026 Start: 01-27-2025 End: 01-27-2026 Hepatitis B virus core IgM Ab [Presence] in Serum or Plasma by Immunoassay Hepatitis B core antibody, IgM Lab Routine Screening for viral disease Encounter for long-term (current) use of medications Expected: 01/27/2025 (Approximate), Expires: 01/27/2026 [facility] Comment on above: Expected: 01/27/2025 (Approximate), Expi res: 01/27/2026 Start: 01-27-2025 End: 01-27-2026 Hepatitis B virus surface Ab [Units/volume] in Serum or Plasma by Immunoassay Hepatitis B surface antibody Lab Routine Screening for viral disease Encounter for long-term (current) use of medications Expected: 01/27/2025 (Approximate), Expires: 01/27/2026 [facility] Comment on above: Expected: 01/27/2025 (Approximate), Expi res: 01/27/2026 Start: 01-27-2025 End: 01-27-2026 Hepatitis B virus surface Ag [Presence] in Serum or Plasma by Immunoassay Hepatitis B surface antigen Lab Routine Screening for viral disease Encounter for long-term (current) use of medications Expected: 01/27/2025 (Approximate), Expires: 01/27/2026 [facility] Comment on above: Expected: 01/27/2025 (Approximate), Expi res: 01/27/2026 Start: 01-27-2025 End: 01-27-2026 Hepatitis C virus Ab [Presence] in Serum or Plasma by Immunoassay Hepatitis C antibody Lab Routine Screening for viral disease Encounter for long-term (current) use of medications Expected: 01/27/2025 (Approximate), Expires: 01/27/2026 [facility] Comment on above: Expected: 01/27/2025 (Approximate), Expi res: 01/27/2026 Start: 01-27-2025 End: 01-27-2026 HIV 1+2 Ab+HIV1 p24 Ag [Presence] in Serum or Plasma by Immunoassay HIV-1 and HIV-2 Antigen-Antibody Screen Lab Routine Screening for viral disease Encounter for long-term (current) use of medications Expected: 01/27/2025 (Approximate), Expires: 01/27/2026 [facility] Comment on above: Expected: 01/27/2025 (Approximate), Expi res: 01/27/2026 Start: 01-27-2025 End: 01-27-2026 QUANTIFERON TB GOLD QUANTIFERON TB GOLD Lab Routine Encounter for screening for respiratory tuberculosis Encounter for long-term (current) use of medications Expected: 01/27/2025 (Approximate), Expires: 01/27/2026 [facility] Comment on above: Expected: 01/27/2025 (Approximate), Expi res: 01/27/2026 Start: 01-27-2025 End: 01-27-2025 Patient encounter procedure 01/27/2025 1:00 PM EDT [facility] [address] [place] [phone] Mishel Ortez PA-C [address] [place] [address] [facility] Start: 01-06-2025 End: 01-06-2025 Patient encounter procedure 01/06/2025 1:00 PM EDT Office Visit [facility] [address] [place] [phone] Gardenia Reyes PA-C [address] [place] [address] [facility] Start: 12-12-2024 Hemoglobin A1c measurement Diabetes: Hemoglobin A1C [facility] Start: 11-11-2024 End: 11-11-2024 Patient encounter procedure 11/11/2024 10:30 AM EDT Office Visit Gastroenterology [facility] [address] [place] [address] Leticia Hylton, [facility] [address] [place] [address] eating issues/gp Gastroenterology Comment on above: eating issues/gp Start: 09-12-2024 BP Controlled (<130/80) BP Controlled (<130/80) Terry in Start: 09-12-2024 Hemoglobin A1c measurement [facility] Start: 09-03-2024 End: 09-03-2024 Patient encounter procedure 09/03/2024 11:30 AM EST Office Visit Endocrinology [address] [place], [place] [phone] Jessica Guerrero APRN.PRE PAROLE COUNSELING AIDE [address] [place], [place] [phone] 6 month follow up Endocrinology Comment on above: 6 month follow up Start: 09-02-2024 End: 09-02-2024 ambulatory 09/02/2024 9:30 AM EST [facility] Gastroenterology [address] [place] [address] DO [address] [place] [address] gp f/u Gastroenterology Comment on above: gp f/u Start: 08-28-2024 Medicare Advantage Annual Wellness Visit Medicare Advantage Annual Wellness Visit [facility] Start: 08-15-2024 Diabetes: Estimated Glomerular Filtration Rate for Kidney Health Diabetes: Estimated Glomerular Filtration Rate for [facility] Health [facility] Start: 08-06-2024 End: 08-06-2024 Patient encounter procedure [facility] Start: 2024 Screening for malignant neoplasm of cervix HPV/Cotest [facility] Start: 07-23-2024 End: 07-23-2024 Nursing evaluation of patient and report 07/23/2024 9:00 AM EST Nurse Visit Endocrinology [address] [place] [address] Vamsi Carson, RN [address] [phone] Type 1 diabetes mellitus with hyperglycemia, with [...] Insulin pump status Expected: 07/19/2024, Expires: 10/18/2024 [facility] Work Phone: Comment on above: Expected: 07/19/2024, Expires: Start: 07-19-2024 End: 10-18-2024 Hemoglobin A1c in Blood HEMOGLOBIN A1C Lab Routine Type 1 diabetes mellitus with hyperglycemia, with long-term current use of insulin (HCC) Insulin pump status Expected: 07/19/2024, Expires: 10/18/2024 [facility] Comment on above: Expected: 07/19/2024, Expires: Start: 07-19-2024 End: 10-18-2024 Lipid 1996 panel - Serum or Plasma LIPID PANEL BASIC Lab Routine Type 1 diabetes mellitus with hyperglycemia, with long-term current use of insulin ([facility]) Insulin pump status Expected: 07/19/2024, Expires: 10/18/2024 [facility] Comment on above: Expected: 07/19/2024, Expires: Start: 07-19-2024 End: 10-18-2024 Microalbumin/Creatinine [Mass Ratio] in Urine ALBUMIN/CREATININE RATIO, URINE Lab Routine Type 1 diabetes mellitus with hyperglycemia, with long-term current use of insulin ([facility]) Insulin pump status Expected: 07/19/2024, Expires: 10/18/2024 [facility] Comment on above: Expected: 07/19/2024, Expires: Start: 07-19-2024 End: 07-19-2024 ambulatory 07/19/2024 1:30 PM [facility] Endocrinology [address] [place] [address] Jessica Guerrero APRN.PRE PAROLE COUNSELING AIDE [address] [place] [address] follw up Endocrinology Comment on above: follw up Start: 07-10-2024 End: 10-09-2024 Hepatitis C virus RNA [Units/volume] (viral load) in Serum or Plasma by DANIEL with probe detection [facility] Comment on above: Expected: 07/10/2024, Expires: Start: 07-10-2024 End: 10-09-2024 HIV 1+2 Ab [Presence] in Serum or Plasma by Immunoassay [facility] Work Phone: Comment on above: Expected: 07/10/2024, Expires: Start: 07-10-2024 End: 10-09-2024 SYPHILIS TREPONEMAL W/REFLEX [facility] Comment on above: Expected: 07/10/2024, Expires: Start: 07-10-2024 End: 10-09-2024 Thyrotropin [Units/volume] in Serum or Plasma [facility] Comment on above: Expected: 07/10/2024, Expires: Start: 07-10-2024 End: 07-10-2024 Patient encounter procedure 07/10/2024 11:10 AM EST Office Visit OB/Gynecology [address] [place] [address] Jason Paredes MD [address] [place] [id number] Annual/ Referral in Scan Doc OB/Gynecology Comment on above: Annual/ Referral in Scan Doc Start: 06-13-2024 End: 06-13-2024 Patient encounter procedure 06/13/2024 3:00 PM EDT Office Visit Endocrinology [address] [place] [address] Jessica Guerrero, PAIN MANAGEMENT NURSE PRACTITIONER.PRE PAROLE COUNSELING AIDE [address] [place] [address] 6 month follow up Endocrinology Comment on above: 6 month follow up Start: 06-13-2024 Hemoglobin A1c measurement HbA1C [facility] Start: 06-12-2024 Hemoglobin A1c measurement HbA1C [facility] Start: 05-31-2024 BP Controlled (<130/80) BP Controlled (<130/80) [facility] Start: 05-31-2024 Hemoglobin A1c measurement Diabetes: Hemoglobin A1C [facility] Start: 05-28-2024 End: 05-28-2024 Patient encounter procedure 05/28/2024 11:30 AM EDT Office Visit Endocrinology [address] [place] [address] Jessica Guerrero, PAIN MANAGEMENT NURSE PRACTITIONER.PRE PAROLE COUNSELING AIDE [address] [place] [address] 2-3 month f/u Endocrinology Comment on above: 2-3 month f/u Start: 04-28-2024 COVID-19 Vaccine ( season) COVID-19 Vaccine () [facility] Start: 04-28-2024 Covid-19 Vaccine () Covid-19 Vaccine () [facility] Start: 04-28-2024 Influenza vaccination [facility] Start: 04-16-2024 DTaP/Tdap/Td Vaccines (3 - Td or Tdap) DTaP/Tdap/Td Vaccines (3 - Td or Tdap) [facility] Start: 04-16-2024 Urine microalbumin profile [facility] Start: 03-12-2024 Hemoglobin A1c measurement HbA1C [facility] Start: 03-12-2024 End: 03-12-2024 Patient encounter procedure 03/12/2024 2:00 PM EDT Office Visit Endocrinology [address] [place] [address] Kvng Lewis MD [address] [place] [address] follow up Endocrinology Comment on above: follow up Start: 02-08-2024 BP CONTROLLED (<130/80) BP CONTROLLED (<130/80) [facility] Start: 02-01-2024 End: 02-01-2024 Patient encounter procedure 02/01/2024 10:00 AM EDT Office Visit [facility] Dermatology [address] [place] [phone] Leesa Huddleston PA-C [address] [place] [address] [facility] D[facility] Start: 01-26-2024 BP CONTROLLED (<130/80) BP CONTROLLED (<130/80) [facility] Start: 01-21-2024 ANNUAL PCP TEAM CHRONIC DISEASE VISIT ANNUAL PCP TEAM CHRONIC DISEASE VISIT [facility] Start: 01-21-2024 BP CONTROLLED (<130/80) BP CONTROLLED (<130/80) [facility] Start: 12-09-2023 ANNUAL PCP TEAM CHRONIC DISEASE VISIT ANNUAL PCP TEAM CHRONIC DISEASE VISIT [facility] Start: 11-30-2023 Hemoglobin A1c measurement HbA1C [facility] Start: 11-30-2023 Hemoglobin A1c/Hemoglobin.total in Blood HbA1C [facility] Start: 11-14-2023 End: 11-14-2023 Patient encounter procedure 11/14/2023 10:20 AM EDT Office Visit [facility] [facility] [address] [place] [id number] Leesa Huddleston PA-C [address] [place] [address] [facility] Start: 11-08-2023 BP CONTROLLED (<130/80) BP CONTROLLED (<130/80) [facility] Start: 10-25-2023 [facility] Start: 10-25-2023 Suicide precautions [facility] Start: 10-18-2023 Patient discharge [facility] Start: 10-17-2023 [facility] Start: 10-17-2023 Venous catheter care management [facility] Start: 10-17-2023 Assessment of risk of venous thromboembolism [facility] Start: 10-17-2023 Continuous pulse oximetry [facility] Start: 10-17-2023 Insertion of catheter into peripheral vein [facility] Start: 10-17-2023 Measuring intake and output [facility] Start: 10-17-2023 Notification of physician [facility] Start: 10-17-2023 Patient education [facility] Start: 10-17-2023 Patient referral to dietitian [facility] Start: 10-17-2023 Providing care according to standard [facility] Start: 10-17-2023 Referral to occupational therapist [facility] Start: 10-17-2023 Referral to service [facility] Start: 10-17-2023 Vital signs measurements [facility] Start: 10-17-2023 [facility] Start: 10-17-2023 Verification routine [facility] Start: 10-17-2023 Admission procedure [facility] Start: 10-17-2023 Hospital admission, emergency, from emergency room, medical nature [facility] Start: 10-17-2023 [facility] Start: 09-25-2023 Venous catheter care management [facility] Start: 09-25-2023 [facility] Start: 09-20-2023 [facility] Start: 09-06-2023 Venous catheter care management [facility] Start: 09-06-2023 [facility] Start: 08-28-2023 Behavioral Health Screening Behavioral Health Screening [facility] Start: 08-28-2023 Depression Assessment Depression Assessment [facility] Start: 08-28-2023 Medicare Advantage Annual Wellness Visit Medicare Advantage Annual Wellness Visit [facility] Start: 08-22-2023 [facility] Start: 08-22-2023 [facility] Start: 08-22-2023 Venous catheter care management [facility] Start: 08-16-2023 3 comp foot exam completed DIABETIC FOOT EXAM [facility] Start: 08-16-2023 BP CONTROLLED (<130/80) BP CONTROLLED (<130/80) [facility] Start: 08-16-2023 Diabetic foot examination Diabetic Foot Exam [facility] Start: 08-15-2023 End: 08-15-2023 Patient encounter procedure [facility] Start: 08-10-2023 Patient discharge [facility] Start: 08-10-2023 End: 08-10-2023 [facility] Start: 08-09-2023 Care planning and problem solving actions [facility] Start: 08-09-2023 Provision of activity privileges [facility] Start: 08-08-2023 [facility] Start: 08-08-2023 Blood chemistry [facility] Start: 08-08-2023 [facility] Start: 08-07-2023 Care planning and problem solving actions [facility] Start: 08-07-2023 Blood chemistry [facility] Start: 08-07-2023 Blood chemistry [facility] Start: 08-07-2023 Care planning and problem solving actions [facility] Start: 08-07-2023 Blood chemistry [facility] Start: 08-07-2023 Blood chemistry [facility] Start: 08-07-2023 Acetone [Presence] in Serum or Plasma [facility] Start: 08-07-2023 Gas panel - Arterial blood [facility] Start: 08-07-2023 Blood chemistry [facility] Start: 08-07-2023 Application of intermittent pneumatic compression device [facility] Start: 08-07-2023 Enteric precautions [facility] Start: 08-07-2023 Following clinical pathway protocol [facility] Start: 08-07-2023 Hemoglobin A1c/Hemoglobin.total in Blood [facility] Start: 08-07-2023 Lab findings surveillance [facility] Start: 08-07-2023 Notification of physician [facility] Start: 08-07-2023 Patient education [facility] Start: 08-07-2023 Taking nasal swab [facility] Start: 08-07-2023 Vital signs measurements [facility] Start: 08-07-2023 [facility] Start: 08-07-2023 Aspiration precautions [facility] Start: 08-07-2023 Blood chemistry [facility] Start: 08-07-2023 Admission procedure [facility] Start: 08-06-2023 Venous catheter care management [facility] Start: 08-06-2023 Gas panel - Venous blood [facility] Start: 08-06-2023 [facility] Start: 08-06-2023 Venous catheter care management [facility] Start: 07-27-2023 Hemoglobin A1c/Hemoglobin.total in Blood HBA1C [facility] Start: 06-26-2023 Venous catheter care management [facility] Start: 06-26-2023 [facility] Start: 06-25-2023 End: 06-25-2023 [facility] Start: 06-07-2023 BP CONTROLLED (<130/80) BP CONTROLLED (<130/80) [facility] Start: 05-10-2023 BP CONTROLLED (<130/80) BP CONTROLLED (<130/80) [facility] Start: 05-06-2023 Blood chemistry [facility] Start: 05-05-2023 Blood chemistry [facility] Start: 05-04-2023 Blood chemistry [facility] Start: 05-03-2023 Venous catheter care management [facility] Start: 05-03-2023 Blood chemistry [facility] Start: 05-02-2023 Blood chemistry [facility] Start: 05-01-2023 Blood chemistry [facility] Start: 04-30-2023 Blood chemistry [facility] Start: 04-29-2023 Patient discharge [facility] Start: 04-29-2023 Venous catheter care management [facility] Start: 04-28-2023 Care regimes management [facility] Start: 04-28-2023 Notification of physician [facility] Start: 04-28-2023 End: 04-28-2023 [facility] Start: 04-28-2023 Covid-19 Vaccine () Covid-19 Vaccine () [facility] Start: 04-28-2023 Influenza vaccination [facility] Start: 04-28-2023 Urine culture Urine Culture [facility] Start: 04-28-2023 [facility] Start: 04-27-2023 Following clinical pathway protocol [facility] Start: 04-27-2023 Ambulation without limitation [facility] Start: 04-27-2023 Assessment of risk of venous thromboembolism [facility] Start: 04-27-2023 Insertion of catheter into peripheral vein [facility] Start: 04-27-2023 Providing care according to standard [facility] Start: 04-27-2023 [facility] Start: 04-27-2023 Verification routine [facility] Start: 04-27-2023 Admission procedure [facility] Start: 04-27-2023 [facility] Start: 04-27-2023 Venous catheter care management [facility] Start: 04-27-2023 Consultation [facility] Start: 04-27-2023 Patient referral to dietitian [facility] Start: 04-23-2023 Venous catheter care management [facility] Start: 04-18-2023 Adult depression screening assessment DEPRESSION SCREENING [facility] Start: 04-18-2023 ANNUAL PCP TEAM CHRONIC DISEASE VISIT ANNUAL PCP TEAM CHRONIC DISEASE VISIT [facility] Start: 04-18-2023 BP CONTROLLED (<130/80) BP CONTROLLED (<130/80) [facility] Start: 02-14-2023 Hemoglobin A1c/Hemoglobin.total in Blood HBA1C [facility] Start: 01-25-2023 End: 03-27-2023 ALBUMIN/CREAT RATIO RND UR ALBUMIN/CREAT RATIO RND UR Lab Routine Type 1 diabetes mellitus with hyperglycemia, with long-term current use of insulin (HCC) Expected: 01/25/2023, Expires: 03/27/2023 [facility] Work Phone: Comment on above: Expected: 01/25/2023, Expires: Start: 10-04-2022 End: 10-04-2023 CBC W Auto Differential panel - Blood CBC auto differential Lab Routine Psoriasis vulgaris Encounter for long-term current use of high risk medication Expected: 10/04/2022 (Approximate), Expires: 10/04/2023 [facility] Work Phone: Comment on above: Expected: 10/04/2022 (Approximate), Expi res: 10/04/2023 Start: 10-04-2022 End: 10-04-2023 Comprehensive metabolic 1998 panel - Serum or Plasma Comprehensive metabolic panel Lab Routine Psoriasis vulgaris Encounter for long-term current use of high risk medication Expected: 10/04/2022 (Approximate), Expires: 10/04/2023 [facility] Comment on above: Expected: 10/04/2022 (Approximate), Expi res: 10/04/2023 Start: 10-04-2022 End: 10-04-2023 Hepatitis A virus IgM Ab [Presence] in Serum or Plasma by Immunoassay Hepatitis A antibody, IgM Lab Routine Psoriasis vulgaris Encounter for long-term current use of high risk medication Screening for viral disease Expected: 10/04/2022 (Approximate), Expires: 10/04/2023 [facility] Comment on above: Expected: 10/04/2022 (Approximate), Expi res: 10/04/2023 Start: 10-04-2022 End: 10-04-2023 Hepatitis B virus core IgM Ab [Presence] in Serum or Plasma by Immunoassay Hepatitis B core antibody, IgM Lab Routine Psoriasis vulgaris Encounter for long-term current use of high risk medication Screening for viral disease Expected: 10/04/2022 (Approximate), Expires: 10/04/2023 [facility] Comment on above: Expected: 10/04/2022 (Approximate), Expi res: 10/04/2023 Start: 10-04-2022 End: 10-04-2023 Hepatitis B virus surface Ab [Units/volume] in Serum or Plasma by Immunoassay Hepatitis B surface antibody Lab Routine Psoriasis vulgaris Encounter for long-term current use of high risk medication Screening for viral disease Expected: 10/04/2022 (Approximate), Expires: 10/04/2023 [facility] Comment on above: Expected: 10/04/2022 (Approximate), Expi res: 10/04/2023 Start: 10-04-2022 End: 10-04-2023 Hepatitis B virus surface Ag [Presence] in Serum or Plasma by Immunoassay Hepatitis B surface antigen Lab Routine Psoriasis vulgaris Encounter for long-term current use of high risk medication Screening for viral disease Expected: 10/04/2022 (Approximate), Expires: 10/04/2023 [facility] Comment on above: Expected: 10/04/2022 (Approximate), Expi res: 10/04/2023 Start: 10-04-2022 End: 10-04-2023 Hepatitis C virus Ab [Presence] in Serum or Plasma by Immunoassay Hepatitis C antibody Lab Routine Psoriasis vulgaris Encounter for long-term current use of high risk medication Screening for viral disease Expected: 10/04/2022 (Approximate), Expires: 10/04/2023 [facility] Comment on above: Expected: 10/04/2022 (Approximate), Expi res: 10/04/2023 Start: 10-04-2022 End: 10-04-2023 HIV 1+2 Ab+HIV1 p24 Ag [Presence] in Serum or Plasma by Immunoassay HIV-1 and HIV-2 Antigen-Antibody Screen Lab Routine Psoriasis vulgaris Encounter for long-term current use of high risk medication Screening for viral disease Expected: 10/04/2022 (Approximate), Expires: 10/04/2023 [facility] Comment on above: Expected: 10/04/2022 (Approximate), Expi res: 10/04/2023 Start: 10-04-2022 End: 10-04-2023 QUANTIFERON TB GOLD QUANTIFERON TB GOLD Lab Routine Psoriasis vulgaris Encounter for long-term current use of high risk medication Expected: 10/04/2022 (Approximate), Expires: 10/04/2023 [facility] Comment on above: Expected: 10/04/2022 (Approximate), Expi res: 10/04/2023 Start: 08-28-2022 DEPRESSION ASSESSMENT DEPRESSION ASSESSMENT [facility] Start: 07-11-2022 End: 09-10-2022 Hemoglobin A1c in Blood HGB A1C Lab Routine Type 1 diabetes mellitus with hyperglycemia (HCC) Insulin pump status Expected: 07/11/2022, Expires: 09/10/2022 [facility] Work Phone: Comment on above: Expected: 07/11/2022, Expires: 3 Start: 07-11-2022 End: 09-10-2022 THYROID PEROXIDASE ANTIBODY BLOOD THYROID PEROXIDASE ANTIBODY BLOOD Lab Routine Type 1 diabetes mellitus with hyperglycemia (HCC) Insulin pump status Abnormal results of thyroid function studies Expected: 07/11/2022, Expires: 09/10/2022 [facility] Work Phone: Comment on above: Expected: 07/11/2022, Expires: 3 Start: 07-11-2022 End: 09-10-2022 Thyrotropin [Units/volume] in Serum or Plasma TSH BLD Lab Routine Type 1 diabetes mellitus with hyperglycemia (HCC) Insulin pump status Abnormal results of thyroid function studies Expected: 07/11/2022, Expires: 09/10/2022 [facility] Work Phone: Comment on above: Expected: 07/11/2022, Expires: 3 Start: 07-11-2022 End: 09-10-2022 Thyroxine (T4) free [Mass/volume] in Serum or Plasma T4 FREE/FREE THYROX Lab Routine Type 1 diabetes mellitus with hyperglycemia (HCC) Insulin pump status Abnormal results of thyroid function studies Expected: 07/11/2022, Expires: 09/10/2022 [facility] Work Phone: Comment on above: Expected: 07/11/2022, Expires: 3 Start: 07-02-2022 Hemoglobin A1c/Hemoglobin.total in Blood HBA1C [facility] Start: 04-28-2022 Influenza vaccination [facility] Start: 04-18-2022 End: 06-18-2022 Chlamydia trachomatis+Neisseria gonorrhoeae DNA [Presence] in Urine by DANIEL with probe detection GC/CHLAMYDIA AMPLIF, URINE Microbiology Routine Menstrual irregularity Screening for STD (sexually transmitted disease) Expected: 04/18/2022, Expires: 06/18/2022 [facility] Work Phone: Comment on above: Expected: 04/18/2022, Expires: 2 Start: 04-18-2022 End: 06-18-2022 Choriogonadotropin ( test) [Presence] in Urine HCG QUAL UR Lab Routine Menstrual irregularity Expected: 04/18/2022, Expires: 06/18/2022 [facility] Work Phone: Comment on above: Expected: 04/18/2022, Expires: 2 Start: 02-04-2022 Hepatitis B surface antibody level LDL CHOLESTEROL [facility] Start: 08-28-2021 DEPRESSION ASSESSMENT DEPRESSION ASSESSMENT [facility] Start: 05-27-2021 Hemoglobin A1c/Hemoglobin.total in Blood HBA1C [facility] Start: 12-23-2020 Glaucoma screening Dilated Retinal Exam [facility] Start: 12-23-2020 Hepatitis C antibody, confirmatory test DILATED RETINAL EXAM [facility] Start: 03-30-2019 PAP TESTING PAP TESTING [facility] Start: 03-21-2018 Diabetes: Urine Albumin-Creatinine Ratio for [facility] Diabetes: Urine Albumin-Creatinine Ratio for [facility] Start: 03-21-2018 Hepatitis B screening URINE ALBUMIN:CREATININE RATIO [facility] Start: 11-23-2016 Adult depression screening assessment DEPRESSION SCREENING [facility] Start: 11-12-2016 3 comp foot exam completed DIABETIC FOOT EXAM [facility] Start: 01-01-2014 PNEUMOCOCCAL (2 - PCV) PNEUMOCOCCAL (2 - PCV) [facility] Start: 01-01-2014 [facility] Start: 2013 HEPATITIS B (1 of 3 - Risk 3-dose series) HEPATITIS B (1 of 3 - Risk 3-dose series) [facility] Start: 2013 Hepatitis B Vaccine (1 of 3 - 19+ 3-dose series) Hepatitis B Vaccine (1 of 3 - 19+ 3-dose series) [facility] Start: 2013 Hepatitis B Vaccines (1 of 3 - 19+ 3-dose series) Hepatitis B Vaccines (1 of 3 - 19+ 3-dose series) [facility] Start: 2013 Urine screening for protein Diabetes: Urine Protein Screening [facility] Start: 12-11-2012 HPV Vaccine (3 - 3-dose series) HPV Vaccine (3 - 3-dose series) [facility] Start: 12-11-2012 HPV Vaccines (3 - 3-dose series) HPV Vaccines (3 - 3-dose series) [facility] Start: 11-06-2012 Hepatitis A Vaccines (2 of 2 - 2-dose series) Hepatitis A Vaccines (2 of 2 - 2-dose series) [facility] Start: 2012 ANNUAL PCP TEAM CHRONIC DISEASE VISIT ANNUAL PCP TEAM CHRONIC DISEASE VISIT [facility] Start: 2012 BP CONTROLLED (<130/80) BP CONTROLLED (<130/80) [facility] Start: 2012 Depression Screening Depression Screening [facility] Start: 2012 Diabetes: Urine Albumin-Creatinine Ratio for [facility] Diabetes: Urine Albumin-Creatinine Ratio for [facility] Start: 2012 Hepatitis B surface antibody level LDL CHOLESTEROL [facility] Start: 2007 Varicella vaccination Varicella Vaccines (1 of 2 - 13+ 2-dose series) [facility] Start: 2006 Depression Monitoring Depression Monitoring [facility] Start: 2006 Depression Screening Depression Screening [facility] Start: 2004 Diabetic foot examination Diabetes: Foot Exam [facility] Start: 2004 Glaucoma screening Diabetes: Retinopathy Screening [facility] Start: 2004 Preventive dental service Diabetes: Dental Exam [facility] Start: 2000 PNEUMOCOCCAL (1 - PCV) PNEUMOCOCCAL (1 - PCV) [facility] Start: 1999 COVID-19 VACCINE (#1) COVID-19 VACCINE (#1) [facility] Start: 1999 COVID-19 VACCINE (1) COVID-19 VACCINE (1) [facility] Start: 1995 MMR Vaccines (1 of 1 - Standard series) MMR Vaccines (1 of 1 - Standard series) [facility] Start: 1995 Varicella vaccination Varicella Vaccines (1 of 2 - 2-dose childhood series) [facility] Start: 01-27-1995 COVID-19 VACCINE (#1) COVID-19 VACCINE (#1) [facility] Start: 1994 Hemoglobin A1c measurement Diabetes: Hemoglobin A1C [facility]: 1994 HEPATITIS B (1 of 3 - 3-dose series) HEPATITIS B (1 of 3 - 3-dose series) [facility] Start: 1994 Hepatitis B Vaccine (1 of 3 - 3-dose series) Hepatitis B Vaccine (1 of 3 - 3-dose series) [facility] Start: 1994 Hepatitis B Vaccines (1 of 3 - 3-dose series) Hepatitis B Vaccines (1 of 3 - 3-dose series) [facility] Start: 1994 Lipid panel Lipid Panel [facility] Start: 1994 Medicare Advantage Annual Wellness Visit (AWV) Medicare Advantage Annual Wellness Visit (AWV) [facility]ion [facility]ion gap [facility] Anion gap measurement [facility] An[facility] gap measurement [facility] An[facility] gap measurement [facility] Anion gap measurement [facility] Anion gap measurement [facility] An[facility] gap measurement [facility] Anion gap measurement [facility] Anion gap measurement [facility] An[facility] gap measurement [facility] Anion gap measurement [facility] Anion gap [facility] Anion gap measurement [facility] Bacteria identified in Urine by Culture URINE CULTURE Microbiology Routine Left flank pain Ordered: 01/25/2023 [facility] Work Phone: Comment on above: Ordered: 01/25/2023 BUN/Creatinine ratio [facility] BUN/Creatinine ratio [facility] BUN/Creatinine ratio [facility] BUN/Creatinine ratio [facility] BUN/Creatinine ratio [facility] [facility]/Creatinine ratio [facility]Creatinine ratio [facility] BUN/Creatinine ratio [facility] Calcium [Mass/volume ] in Serum or Plasma [facility] Calcium [Mass/volume ] in Serum or Plasma [facility] Calcium [Mass/volume ] in Serum or Plasma [facility] Calcium [Mass/volume ] in Serum or Plasma [facility] Calcium [Mass/volume ] in Serum or Plasma [facility] Calcium [Mass/volume ] in Serum or Plasma [facility] Calcium [Mass/volume ] in Serum or Plasma [facility] Calcium [Mass/volume ] in Serum or Plasma [facility] Calcium [Mass/volume ] in Serum or Plasma [facility] Calcium [Mass/volume ] in Serum or Plasma [facility] Calcium [Mass/volume ] in Serum or Plasma [facility] Calcium [Mass/volume ] in Serum or Plasma [facility] Calcium [Mass/volume ] in Serum or Plasma [facility] Calcium [Mass/volume ] in Serum or Plasma [facility] Carbon dioxide, tota l [Moles/volume] in Serum or Plasma [facility] Carbon dioxide, tota l [Moles/volume] in Serum or Plasma [facility] Carbon dioxide, tota l [Moles/volume] in Serum or Plasma [facility] Carbon dioxide, tota l [Moles/volume] in Serum or Plasma [facility] Carbon dioxide, tota l [Moles/volume] in Serum or Plasma [facility] Carbon dioxide, tota l [Moles/volume] in Serum or Plasma [facility] Carbon dioxide, tota l [Moles/volume] in Serum or Plasma [facility] Carbon dioxide, tota l [Moles/volume] in Serum or Plasma [facility] Carbon dioxide, tota l [Moles/volume] in Serum or Plasma [facility] Carbon dioxide, tota l [Moles/volume] in Serum or Plasma [facility] Carbon dioxide, tota l [Moles/volume] in Serum or Plasma [facility] Carbon dioxide, tota l [Moles/volume] in Serum or Plasma [facility] Carbon dioxide, tota l [Moles/volume] in Serum or Plasma [facility] Carbon dioxide, tota l [Moles/volume] in Serum or Plasma [facility] Chlamydia trachomatis+Neisseria gonorrhoeae DNA [Presence] in Unspecified specimen by DANIEL with probe detection GC/CHLAMYDIA DNA DET Lab Routine Gonorrhea Screen for sexually transmitted diseases Ordered: 06/07/2022 [facility] Work Phone: Comment on above: Ordered: [...] Chloride [Moles/volu me] in Serum or Plasma [facility] Chloride [Moles/volu me] in Serum or Plasma [facility] Chloride [Moles/volu me] in Serum or Plasma [facility] Chloride [Moles/volu me] in Serum or Plasma [facility] Chloride [Moles/volu me] in Serum or Plasma [facility] Chloride [Moles/volu me] in Serum or Plasma [facility] Chloride [Moles/volu me] in Serum or Plasma [facility] Chloride [Moles/volu me] in Serum or Plasma [facility] Chloride [Moles/volu me] in Serum or Plasma [facility] Chloride [Moles/volu me] in Serum or Plasma [facility] Chloride [Moles/volu me] in Serum or Plasma [facility] Chloride [Moles/volu me] in Serum or Plasma [facility] Chloride [Moles/volu me] in Serum or Plasma [facility] Chloride [Moles/volu me] in Serum or Plasma [facility] Clostridioides diffi cile DNA [Presence] in Unspecified specimen by DANIEL with probe detection [facility] Creatinine [Moles/vo lume] in Serum or Plasma [facility] Creatinine [Moles/vo lume] in Serum or Plasma [facility] Creatinine [Moles/vo lume] in Serum or Plasma [facility] Creatinine [Moles/vo lume] in Serum or Plasma [facility] Creatinine [Moles/vo lume] in Serum or Plasma [facility] Creatinine [Moles/vo lume] in Serum or Plasma [facility] Creatinine [Moles/vo lume] in Serum or Plasma [facility] Creatinine [Moles/vo lume] in Serum or Plasma [facility] Creatinine [Moles/vo lume] in Serum or Plasma [facility] Creatinine [Moles/vo lume] in Serum or Plasma [facility] Creatinine [Moles/vo lume] in Serum or Plasma [facility] Creatinine [Moles/vo lume] in Serum or Plasma [facility] Creatinine [Moles/vo lume] in Serum or Plasma [facility] Creatinine [Moles/vo lume] in Serum or Plasma [facility] Gastrointestinal pathogens panel - Stool by DANIEL with probe detection [facility] Glucose [Mass/volume ] in Serum or Plasma [facility] Glucose [Mass/volume ] in Serum or Plasma [facility] Glucose [Mass/volume ] in Serum or Plasma [facility] Glucose [Mass/volume ] in Serum or Plasma [facility] Glucose [Mass/volume ] in Serum or Plasma [facility] Glucose [Mass/volume ] in Serum or Plasma [facility] Glucose [Mass/volume ] in Serum or Plasma [facility] Glucose [Mass/volume ] in Serum or Plasma [facility] Glucose [Mass/volume ] in Serum or Plasma [facility] Glucose [Mass/volume ] in Serum or Plasma [facility] Glucose [Mass/volume ] in Serum or Plasma [facility] Glucose [Mass/volume ] in Serum or Plasma [facility] Glucose [Mass/volume ] in Serum or Plasma [facility] Glucose [Mass/volume ] in Serum or Plasma [facility] Hematocrit [Volume Fraction] of Blood [facility] Hematocrit [Volume Fraction] of Blood [facility] Hematocrit [Volume Fraction] of Blood [facility] Hematocrit [Volume Fraction] of Blood [facility] Hematocrit [Volume Fraction] of Blood [facility] Hematocrit [Volume Fraction] of Blood [facility] Hematocrit [Volume Fraction] of Blood [facility] Hemoglobin [Mass/vol ume] in Blood [facility] Hemoglobin [Mass/vol ume] in Blood [facility] Hemoglobin [Mass/vol ume] in Blood [facility] Hemoglobin [Mass/vol ume] in Blood [facility] Hemoglobin [Mass/vol ume] in Blood [facility] Hemoglobin [Mass/vol ume] in Blood [facility] Hemoglobin [Mass/vol ume] in Blood [facility] Hemoglobin A1c/Hemoglobin.total in Blood HEMOGLOBIN A1C (POC) Lab Routine Type 1 diabetes mellitus with hyperglycemia, with long-term current use of insulin (HCC) Ordered: 03/12/2024 [facility] Work Phone: Comment on above: Ordered: 03/12/2024 Lactoferrin [Presenc e] in Stool by Immunoassay [facility] Leukocytes [#/volume ] in Blood [facility] Leukocytes [#/volume ] in Blood [facility] Leukocytes [#/volume ] in Blood [facility] Leukocytes [#/volume ] in Blood [facility] Leukocytes [#/volume ] in Blood [facility] Leukocytes [#/volume ] in Blood [facility] Leukocytes [#/volume ] in Blood [facility] Magnesium [Mass/volu me] in Serum or Plasma [facility] Mean corpuscular hemoglobin concentration determination [facility] Mean corpuscular hemoglobin concentration determination [facility] Mean corpuscular hemoglobin concentration determination [facility] Mean corpuscular hemoglobin concentration determination [facility] Mean corpuscular hemoglobin concentration determination [facility] Mean corpuscular hemoglobin concentration determination [facility] Mean corpuscular hemoglobin concentration determination [facility] Mean corpuscular hemoglobin determination [facility] Mean corpuscular hemoglobin determination [facility] Mean corpuscular hemoglobin determination [facility] Mean corpuscular hemoglobin determination [facility] Mean corpuscular hemoglobin determination [facility] Mean corpuscular hemoglobin determination [facility] Mean corpuscular hemoglobin determination [facility] Measurement of renal function [facility] Measurement of renal function [facility] Measurement of renal function [facility] Measurement of renal function [facility] Measurement of renal function [facility] Measurement of renal function [facility] Measurement of renal function [facility] Measurement [facility] renal function [facility] Measurement of renal function [facility] Measurement of renal function [facility] Measurement [facility] renal function [facility] Measurement of renal function [facility] Measurement of renal function [facility] Measurement [facility] renal function [facility] Neutrophil count [facility] Neutrophil count [facility] Neutrophil count [facility] Neutrophil count [facility] Neutrophil count [facility] Neutrophil count [facility] Neutrophil count [facility] Neutrophil percent differential count [facility] Neutrophil percent differential count [facility] Neutrophil percent differential count [facility] Neutrophil percent differential count [facility] Neutrophil percent differential count [facility] Neutrophil percent differential count [facility] Neutrophil percent differential count [facility] Ova and parasites identified in Unspecified specimen by Light microscopy [facility] PAP TEST PAP TEST Lab Rou [place] Encounter for screening for malignant neoplasm of cervix Screening for human papillomavirus (HPV) 07/10/2024 12:13 PM [facility] Patient Education [facility] Work Phone: Patient referral [facility] Work Phone: Platelets [#/volume] in Blood [facility] Platelets [#/volume] in Blood [facility] Platelets [#/volume] in Blood [facility] Platelets [#/volume] in Blood [facility] Platelets [#/volume] in Blood [facility] Platelets [#/volume] in Blood [facility] Platelets [#/volume] in Blood [facility] Potassium [Moles/vol ume] in Serum or Plasma [facility] Potassium [Moles/vol ume] in Serum or Plasma [facility] Potassium [Moles/vol ume] in Serum or Plasma [facility] Potassium [Moles/vol ume] in Serum or Plasma [facility] Potassium [Moles/vol ume] in Serum or Plasma [facility] Potassium [Moles/vol ume] in Serum or Plasma [facility] Potassium [Moles/vol ume] in Serum or Plasma [facility] Potassium [Moles/vol ume] in Serum or Plasma [facility] Potassium [Moles/vol ume] in Serum or Plasma [facility] Potassium [Moles/vol ume] in Serum or Plasma [facility] Potassium [Moles/vol ume] in Serum or Plasma [facility] Potassium [Moles/vol ume] in Serum or Plasma [facility] Potassium [Moles/vol ume] in Serum or Plasma [facility] Potassium [Moles/vol ume] in Serum or Plasma [facility] Red blood cell count [facility] Red blood cell count [facility] Red blood cell count [facility] Red blood cell count [facility] Red blood cell count [facility] Red blood cell count [facility] Red blood cell count [facility] Red cell distributio n width determination [facility] Red cell distributio n width determination [facility] Red cell distributio n width determination [facility] Red cell distributio n width determination [facility] Red cell distributio n width determination [facility] Red cell distributio n width determination [facility] Red cell distributio n width determination [facility] Respiratory pathogen s DNA and RNA panel - Respiratory specimen by DANIEL with probe detection [facility] Sodium [Moles/volume ] in Serum or Plasma [facility] Sodium [Moles/volume ] in Serum or Plasma [facility] Sodium [Moles/volume ] in Serum or Plasma [facility] Sodium [Moles/volume ] in Serum or Plasma [facility] Sodium [Moles/volume ] in Serum or Plasma [facility] Sodium [Moles/volume ] in Serum or Plasma [facility] Sodium [Moles/volume ] in Serum or Plasma [facility] Sodium [Moles/volume ] in Serum or Plasma [facility] Sodium [Moles/volume ] in Serum or Plasma [facility] Sodium [Moles/volume ] in Serum or Plasma [facility] Sodium [Moles/volume ] in Serum or Plasma [facility] Sodium [Moles/volume ] in Serum or Plasma [facility] Sodium [Moles/volume ] in Serum or Plasma [facility] Sodium [Moles/volume ] in Serum or Plasma [facility] T VAGINALIS AMPLIFICATION T VAGI NALIS AMPLIFICATION Lab Routine Screening for STD (sexually transmitted disease) Ordered: 04/18/2022 [facility] Work Phone: Comment on above: Ordered: 04/18/2022 TRICHOMONAS VAGINALI S NAAT TRICHOMONAS VAGINALIS NAAT Lab Routine Encounter for gynecological examination (general) (routine) without abnormal findings Encounter for screening for malignant neoplasm of cervix Screening for human papillomavirus (HPV) Irregular menstrual bleeding Routine screening for STI (sexually transmitted infection) 07/10/2024 12:13 PM EST [facility] Urea nitrogen [Mass/volume] in Serum or Plasma [facility] Urea nitrogen [Mass/volume] in Serum or Plasma [facility] Urea nitrogen [Mass/volume] in Serum or Plasma [facility] Urea nitrogen [Mass/volume] in Serum or Plasma [facility] Urea nitrogen [Mass/volume] in Serum or Plasma [facility] Urea nitrogen [Mass/volume] in Serum or Plasma [facility] Urea nitrogen [Mass/volume] in Serum or Plasma [facility] Urea nitrogen [Mass/volume] in Serum or Plasma [facility] Urea nitrogen [Mass/volume] in Serum or Plasma [facility] Urea nitrogen [Mass/volume] in Serum or Plasma [facility] Urea nitrogen [Mass/volume] in Serum or Plasma [facility] Urea nitrogen [Mass/volume] in Serum or Plasma [facility] Urea nitrogen [Mass/volume] in Serum or Plasma [facility] Urea nitrogen [Mass/volume] in Serum or Plasma [facility] Immunizations Immunization Date Immunization Notes Care Provider [place] [facility] 11-05-2019 influenza, injectabl e, quadrivalent, preservative free Autumn Valadez PAIN MANAGEMENT NURSE PRACTITIONER.[facility] Work Phone: [facility] Work Phone: 11-05-2019 influenza virus vacc ine, unspecified formulation Leesa Huddleston PA-C Work Phone: [facility] 06-14-2016 influenza, seasonal, injectable Autumn Valadez PAIN MANAGEMENT NURSE PRACTITIONER.PRE PAROLE COUNSELING AIDE Work Phone: [facility] Work Phone: 05-30-2016 influenza nasal, unspecified formulation Autumn Rory PAIN MANAGEMENT NURSE PRACTITIONER.PRE PAROLE COUNSELING AIDE Work Phone: [facility] Work Phone: 05-30-2016 influenza virus vacc ine, unspecified formulation ANITA COMER MD [facility] 06-05-2015 influenza, seasonal, injectable, preservative free Autumn Valadez PAIN MANAGEMENT NURSE PRACTITIONER.[facility] Work Phone: [facility] Work Phone: 05-23-2014 influenza virus vacc ine, unspecified formulation Leesa Huddleston JOCELYNE-C Work Phone: [facility] 05-23-2014 influenza, seasonal, injectable [facility] Provider [facility] Work Phone: 04-16-2014 tetanus toxoid, redu luis eduardo diphtheria toxoid, and acellular pertussis vaccine, adsorbed [facility] Provider [facility] 01-01-2013 pneumococcal polysaccharide vaccine, 23 valent Autumn Valadez PAIN MANAGEMENT NURSE PRACTITIONER.[facility] Work Phone: [facility] Work Phone: 08-11-2012 human papilloma viru s vaccine, quadrivalent Autumn Valadez PAIN MANAGEMENT NURSE PRACTITIONER.[facility] Work Phone: [facility] Work Phone: 08-11-2012 HPV, unspecified formulation Leesatavares Huddleston JOCELYNE-Gilberto Work Phone: [facility] 06-12-2012 human papilloma viru s vaccine, quadrivalent Autumn Valadez PAIN MANAGEMENT NURSE PRACTITIONER.[facility] Work Phone: [facility] Work Phone: 05-09-2012 hepatitis A vaccine, pediatric/adolescent dosage, 2 dose schedule Autumn Valadez APRN.[facility] Work Phone: [facility] Work Phone: 05-09-2012 hepatitis A and hepatitis B vaccine Leesatavares Huddleston JOCELYNE-Gilberto Work Phone: [facility] 11-03-2009 meningococcal polysaccharide (groups A, C, Y and W-135) diphtheria toxoid conjugate vaccine (MCV4P) Autumn Valadez APRN.[facility] Work Phone: [facility] Work Phone: 11-03-2009 tetanus toxoid, redu luis eduardo diphtheria toxoid, and acellular pertussis vaccine, adsorbed Autumn Valadez PAIN MANAGEMENT NURSE PRACTITIONER.[facility] Work Phone: [facility] Work Phone: Payers Date Payer Category Payer Self-pay 2022 Medicare O JANIS JONESO MEDICARE [id number] 2019 Medicare (Managed Care) LOUISE WRIGHTDESTINY MEDICARE [id number] 2019 Medicare [id number] 2017 Medicaid [id number]. 1.13.159.2. [id number] 2017 Medicare [id number]. [id number] 2017 Medicare [id number]. 1.13.159.2. [id number] 2012 Medicaid [id number] 1994 Unknown [id number] 2.16.840.1.855470.3.579.2. 903 Unknown [id number] 2.16840.1.270164.3.579.2. 462 Unknown [id number] 2.16840.1.549328.3.579.2. 462 Unknown [id number] 2.16.840.1.447173.3.579.2. 462 Unknown [id number] 2.840.1.717747.3.579.2. 462 Unknown [id number] 2.840.1.929923.3.579.2. 462 Unknown [id number] 2.840.1.390460.3.579.2. 462 Unknown [id number] 2.840.1.322266.3.579.2. 462 Unknown [id number] 2.840.1.781323.3.579.2. 462 Unknown [id number] 2.840.1.687202.3.579.2. 462 Unknown [id number] 2.840.1.958516.3.579.2. 462 Unknown [id number] 2.840.1.363603.3.579.2. 462 Unknown [id number] 2.840.1.569420.3.579.2. 462 Unknown [id number] 2.840.1.336906.3.579.2. 462 Unknown [id number] 2.840.1.861155.3.579.2. 462 Unknown [id number] 2.840.1.679910.3.579.2. 462 Unknown [id number] 2.840.1.654658.3.579.2. 462 Unknown [id number] 2.840.1.263888.3.579.2. 462 Unknown [id number] 2.840.1.642554.3.579.2. 462 Unknown [id number] 2.16.840.1.571970.3.579.2. 462 Unknown [id number] 2.16.840.1.536989.3.579.2. 462 Unknown [id number] 2.16.840.1.018136.3.579.2. 462 Unknown [id number] 2.16.840.1.092802.3.579.2. 462 Unknown [id number] 2.16.840.1.216306.3.579.2. 462 Unknown [id number] 2.16.840.1.171776.3.579.2. 462 Unknown [id number] 2.16.840.1.808175.3.579.2. 462 Unknown [id number] 2.16.840.1.341745.3.579.2. 462 Unknown [id number] 2.16.840.1.912524.3.579.2. 462 Unknown [id number] 2.16.840.1.367076.3.579.2. 462 Unknown [id number] 2.16.840.1.187830.3.579.2. 462 Unknown [id number] 2.16.840.1.592318.3.579.2. 462 Unknown [id number] 2.16.840.1.448922.3.579.2. 462 Unknown [id number] 2.16.840.1.814113.3.579.2. 462 Unknown [id number] 2.16.840.1.613588.3.579.2. 462 Unknown [id number] 2.16.840.1.230454.3.579.2. 462 Unknown [id number] 2.16.840.1.402347.3.579.2. 462 Unknown [id number] 2.16.840.1.054954.3.579.2. 462 Unknown [id number] 2.16.840.1.234918.3.579.2. 462 Unknown [id number] 2.840.1.341889.3.579.2. 462 Unknown [id number] 2.840.1.875557.3.579.2. 462 Unknown [id number] 2.840.1.989837.3.579.2. 462 Unknown [id number] 2.840.1.204256.3.579.2. 462 Unknown [id number] 2.840.1.310093.3.579.2. 462 Unknown [id number] 2.840.1.520306.3.579.2. 462 Unknown [id number] 2.840.1.659844.3.579.2. 462 Unknown [id number] 2.840.1.616196.3.579.2. 462 Unknown [id number] 2.840.1.543115.3.579.2. 462 Unknown [id number] 2.840.1.999863.3.579.2. 462 Unknown [id number] 2.840.1.564440.3.579.2. 462 Unknown [id number] 2.840.1.693569.3.579.2. 462 Unknown [id number] 2.840.1.020792.3.579.2. 462 Unknown [id number] 2.840.1.861749.3.579.2. 462 Unknown [id number] 2.840.1.761656.3.579.2. 462 Unknown [id number] 2.840.1.373251.3.579.2. 462 Unknown [id number] 2.840.1.675346.3.579.2. 462 Unknown [id number] 2.840.1.919505.3.579.2. 462 Unknown [id number] 2.840.1.847775.3.579.2. 462 Unknown [id number] 2.16.840.1.921072.3.579.2. 462 Unknown [id number] 2.16.840.1.673186.3.579.2. 462 Social History Date Type Detail Facility Start: 12-31-2019 End: 07-10-2024 Tobacco smoking status NHIS Ex-smoker [facility] Start: 06-28-2011 End: 06-28-2019 History of tobacco use Current smoker [facility] Start: 06-28-2011 End: 06-28-2019 History of tobacco use Cigarette Smoker [facility] Start: 12-31-2019 End: 11-14-2023 Cigarettes smoked current (pack per day) - Reported 0.3 [facility] Start: 12-31-2019 End: 07-10-2024 Tobacco use and exposure Smokeless tobacco non-user [facility] Start: 11-25-2020 End: 10-22-2022 Alcohol intake Current non-drinker of alcohol (finding) [facility] Start: 11-02-2020 End: 02-03-2023 History SDOH Social Connections Phone 5 [facility] Start: 11-02-2020 End: 02-03-2023 History SDOH Social Connections Buddhism 1 [facility] Start: 11-02-2020 End: 02-03-2023 History SDOH Social Connections Membership 2 [facility] Start: 11-02-2020 History SDOH Social Connections Living 7 [facility] Start: 11-02-2020 History SDOH Physica l Activity DPW 4 [facility] Start: 11-02-2020 History SDOH Physica l Activity MPS 3 [facility] Start: 1995 Sex Assigned At Female C [facility] Start: 04-26-2023 End: 08-07-2023 Tobacco smoking status Tobacco smoking consumption unknown (finding) [facility] Sex Assigned At Sex [facility] Start: 02-25-2022 End: 10-04-2022 Exposure to SARS-CoV-2 (event) Not sure [facility] Start: 12-08-2022 End: 07-19-2024 Alcohol intake Current drinker of alcohol (finding) [facility] Start: 12-08-2022 Education 13 [facility] Start: 12-08-2022 Alcohol Comment very rarely [facility] Start: 03-20-2023 [facility] Start: 03-20-2023 End: 11-14-2023 Tobacco use panel [facility] Start: 03-20-2023 Alcohol Comment [facility] Start: 1995 Sex Assigned At Not on file [facility] Start: 10-30-2020 Gender identity Identifies as female gender (finding) [facility] Start: 10-30-2020 Sexual orientation Bisexual (finding ) [facility] Start: 01-18-2021 End: 11-14-2023 Alcohol intake Ex-drinker (finding) [facility] Do you belong to any clubs or organizations such as gnosticism groups, unions, fraternal or athletic groups, or school groups? No [facility] Are you now , , , , never or living with a partner? Never [facility] How hard is it for y ou to pay for the very basics like food, housing, medical care, and heating Not hard at all [facility] Do you feel stress - tense, restless, nervous, or anxious, or unable to sleep at night because your mind is troubled all the time - these days [OSQ] Not at all [facility] (I/We) worried wheth er (my/our) food would run out before (I/we) got money to buy more. Never true [facility] In the past 12 month s, was there a time when you were not able to pay the mortgage or rent on time? Yes [facility] Start: 03-28-2022 Sex Female (finding) [facility] NEGATED: Highlighted row [facility] Medical Equipment Procedure Code Equipment Code Equipment Original Text Equipment Identifier Dates Graft Vasc 30cm 28mm [facility] [address] - [id number] Start: 12-09-2014 Comment on above: Description: ascendi ng aorta Slv Scler 30mm 2.4mm 1.5mm Dinorah - [id number] Start: 10-29-2012 Comment on above: Description: Style # 72 Silicone Sleeve Strip Scler [id number] Dinorah Strl - [id number]_[facility] Start: 10-29-2012 Comment on above: Description: Style 4 050 Gas Io Ispan Vsn Sys 125gm Sf6 - [id number]_[facility] Start: 10-29-2012 Comment on above: Description: SF6 gas 22% Bloomer Cv 6x6in Thk1.65mm Ptfe - [id number]_[facility] Start: 12-09-2014 Lens Iol +15.5 Mary Jo 13mm 5.5mm - [id number]_[facility] Start: 05-14-2014 [id number], [id number], [id number], [id number], [id number], [id number] Start: 05-18-2020 End: 06-25-2025 Comment on above: Use as instructed to check blood glucose 7 times daily. 10 x daily DX Code: O24.011 on insulin RUFINA voucher has been faxed Use as instructed to check blood glucose 5 times daily. E10.65 Use as instructed to test blood sugar 4 times daily. E10.65 Pen Needle, Diabetic (Ultra-Thin Ii Ins Pen [place]) 29 gauge x 1/2 needle Start: 08-10-2023 Pen Needle, Diabetic (Ultra-Thin Ii Ins Pen [place]) 29 gauge x 1/2 needle Start: 08-10-2023 Pen Needle, Diabetic (Ultra-Thin Ii Ins Pen [place]) 29 gauge x 1/2 needle Start: 08-10-2023 Pen Needle, Diabetic (Ultra-Thin Ii Ins Pen [place]) 29 gauge x 1/2 needle Start: 08-10-2023 Pen Needle, Diabetic (Ultra-Thin Ii Ins Pen [place]) 29 gauge x 1/2 needle Start: 08-10-2023 Pen Needle, Diabetic (Ultra-Thin Ii Ins Pen [place]) 29 gauge x 1/2 needle Start: 08-10-2023 Loop [id number] Reveal [id number]_[facility] Start: 09-15-2014 Goals Date Patient Goal Desired Activity /State Personal health goal Functional Status Date Assessment Result Facility 10-18-2023 Functional status Ambulates [facility] Work Phone: 08-10-2023 Functional status Up ad narendra [facility] Work Phone: 04-29-2023 Functional status Ambulates;Bedr est;Bathro om Privilege [facility] Work Phone: 02-04-2023 Are you deaf, or do you have serious difficulty hearing No 02/04/2023 2:39 PM EDT Jhoana Colunga RN No [facility] 02-04-2023 Are you blind, or do you have serious difficulty seeing, even when wearing glasses No 02/04/2023 2:39 PM Jhoana Mart, STIVEN No [facility] 02-04-2023 Do you have serious difficulty walking or climbing stairs No 02/04/2023 2:39 PM EDJhoana Martinez, STIVEN No [facility] 02-04-2023 Do you have difficul ty dressing or bathing No 02/04/2023 2:39 PM EDJhoana Martinez, STIVEN No [facility] 02-04-2023 Because of a physica l, mental, or emotional condition, do you have difficulty doing errands alone such as visiting a physician's office or shopping No 02/04/2023 2:39 PM SHOAIBT Jhoana Colunga, STIVEN No [facility] Mental Status Date Assessment Result Facility 10-17-2023 Cognitive function Awake;Alert;Appropriat e [facility] Work Phone: 09-20-2023 Cognitive function Level Of Cons ciousness Awake;Alert;Appropriate;Fol lows Commands [facility] Work Phone: 08-10-2023 Cognitive function Voice/Name [facility] Work Phone: 04-29-2023 Cognitive function Voice/Name [facility] Work Phone: 04-26-2023 Cognitive function Voice/Name [facility] Work Phone: 02-04-2023 Because of a physica l, mental, or emotional condition, do you have serious difficulty concentrating, remembering, or making decisions No 02/04/2023 2:39 PM EDT Jhonaa Colunga RN No [facility] Clinical Notes 01-28-2016 to 03-19-2025 Mishel Ortez PA-C - 01/27/2025 1:00 PM EDTTelephone Encounter - Guero Hammer LPN - 11/11/2024 1:55 PM EDTTelephone Encounter - Guero Hammer LPN - 11/11/2024 1:55 PM EDT Note Date & Type Note Facility 03-19-2025 Note [facility] 03-17-2025 Note [facility] 03-08-2025 Note [facility] 03-05-2025 Note [facility] 02-21-2025 Note [facility] 01-27-2025 History of Present illness Narrative DATE OF SERVICE: 01/27/2025 PATIENT NAME: Kathleen Villa : 1995 AGE: 29 y.o. CLINIC NUMBER: [id number] Visit type: Established patient Chief Complaint Patient [...] Adhesive? Yes- adhesives. Social History: Born/raised in [place]. Excessive sun exposure: Yes Used tanning beds: [...] ingredient(s). 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 Patient advised to [...] encounter. documented in this encounter [facility] 01-26-2025 Note [facility] 12-16-2024 Note [facility] 11-11-2024 Telephone encounter Note Please let her know that her x-ray demonstrates a significantly large amount of stool throughout the colon. I am going to send in Trulance for her to try spoke with patient and she is aware of new Rx was sent to pharmacy. Guero Hammer LPN [facility] 11-11-2024 Miscellaneous Notes Please let her know that her x-ray demonstrates a significantly large amount of stool throughout the colon. I am going to send in Trulance for her to try spoke with patient and she is aware of new Rx was sent to pharmacy. Guero Hammer LPN documented in this encounter [facility] 11-11-2024 History of Present illness Narrative Radiology [...] PATIENT PRESENTS WITH AN IMPLANTABLE OR ATTACHED WARD ATTENDANT: No RADIOLOGY DEPARTMENT: General X-ray: Exam(s) Completed: Abdomen X-Ray: Abdomen PERIPHERAL IV DATA: Not applicable SIGNED BY: RT Eugenio(R) November 11, 2024 11:07 AM documented in this encounter [facility] 11-11-2024 Note HNO ID: [id number] Author: VAMSI STEWART RT(R) Service: Radiology Author [...] PATIENT PRESENTS WITH AN IMPLANTABLE OR ATTACHED WARD ATTENDANT: No RADIOLOGY DEPARTMENT: General X-ray: Exam(s) Completed: Abdomen X-Ray: Abdomen PERIPHERAL IV DATA: Not applicable SIGNED BY: RT Eugenio(R) November 11, 2024 11:07 AM [facility] 11-11-2024 Note HNO ID: [id number] Author: LETICIA HYLTON, DO Service: ? Author [...] every 24 hours. 38.7 mL 1 Insulin [place], Disposable, (PEN NEEDLE) 32 gauge x 5/32 [...] no edema RESPIRATORY: No dyspnea : neg CELEBRITY CHEF ENTREPRENEUR MEDIA PERSONALITY: neg The remainder of the review of [...] every 24 hours. 38.7 mL 1 Insulin [place], Disposable, (PEN NEEDLE) 32 gauge x /32 [...] no edema RESPIRATORY: No dyspnea : neg CELEBRITY CHEF ENTREPRENEUR MEDIA PERSONALITY: neg The remainder of the review of [...] Hylton DO 11/11/2024 documented in this encounter [facility] Miscellaneous Notes Agree with ER. [...] on the phone. documented in this encounter [facility] 11-05-2024 Telephone encounter Note Agree with ER. The patient actually does not have gastroparesis although she keeps stating that she does. Her smart pill in 2020 demonstrated no evidence of gastroparesis. What she has is chronic constipation and abdominal pain. [facility] 11-05-2024 Telephone encounter Note Called patient and [...] functioning appropriately. Please advice. Guero Hammer LPN [facility] 11-05-2024 Telephone encounter Note Patient called and left v/m crying. States she has an appointment but is having some major issues and needs to talk to someone about what to do. She did not state what kinds of issues she is having however she was crying on the phone. [facility] Work Phone: 10-21-[facility] 10-10-2024 Telephone encounter Note Form re-faxed per [facility] request [facility] 10-10-2024 Miscellaneous Notes Form re-faxed per [facility] request Form signed. Jessica Guerrero APRN.PRE PAROLE COUNSELING AIDE Clinical notes and DWO for infusion supplies placed on providers desk to review and advise. To be faxed to [facility] [phone] Patient has been identified by name and date of : Yes Type of form: [facility] Medical Physician Order for Insulin Pump Therapy and Diabetes Testing Form received via: abstract When form is completed, fax form to fax number provided. Form has been forwarded to: Provider's mailbox. Provider name: FRIEDA Urena documented in this encounter [facility] 10-02-2024 Telephone encounter Note Form signed. Jessica Guerrero APRN.CNP [facility] 10-02-2024 Telephone encounter Note Clinical notes and DWO for infusion supplies placed on providers desk to review and advise. To be faxed to [facility] [phone] [facility] 10-02-2024 Telephone encounter Note Patient has been identified by name and date of : Yes Type of form: [facility] Medical Physician Order for Insulin Pump Therapy and Diabetes Testing Form received via: abstract When form is completed, fax form to fax number provided. Form has been forwarded to: Provider's mailbox. Provider name: FRIEDA Urena [facility] 09-02-2024 Note HNO ID: [id number] Author: LETICIA HYLTON, DO Service: ? Author Type: Physician Type: Progress Notes Filed: 09/02/2024 09:32 Note Text: FOLLOW UP VIRTUAL VISIT I have communicated my name and active licensure. The patient's identity and physical location were verified at the time of this visit. Either the patient or their legal sales representative printing paper has been informed of the risks and [...] every 24 hours. 38.7 mL 1 Insulin [place], Disposable, (PEN NEEDLE) 32 gauge x 5/32 [...] no edema RESPIRATORY: No dyspnea : Negative CELEBRITY CHEF ENTREPRENEUR MEDIA PERSONALITY: Negative The remainder of the review of [...] the patient or their legal sales representative printing paper has been informed of the risks and [...] every 24 hours. 38.7 mL 1 Insulin [place], Disposable, (PEN NEEDLE) 32 gauge x 5/32 [...] no edema RESPIRATORY: No dyspnea : Negative CELEBRITY CHEF ENTREPRENEUR MEDIA PERSONALITY: Negative The remainder of the review of systems are negative. Reviewed with patient during visit today. PHYSICAL EXAMINATION: [facility] 06/04/2024 Estimated weight: GENERAL APPEARANCE: Well [...] Hylton DO 09/02/2024 documented in this encounter [facility] 08-07-2024 Telephone encounter Note Medication: Skyrizi 150mg/ml Dosing Schedule: 150mg every 12 weeks Prior Authorization: Submitted date: 08.07.2024 [place] reference #: [id number] Approval dates: 08.07.2024-08.27.2024 [facility] [phone] [facility] 08-07-2024 Miscellaneous Notes Medication: Skyrizi 150mg/ml Dosing Schedule: 150mg every 12 weeks Prior Authorization: Submitted date: 08.07.2024 [place] reference #: [id number] Approval dates: 08.07.2024-08.27.2024 [facility] [phone] documented in this encounter [facility] 08-03-2024 Note [facility] 07-24-2024 Telephone encounter Note [facility] form for CGM /Pump completed and signed per Provider for Medtronic 780G pump and Guardian 4. Completed form and JOSE X2 documentation faxed as requested to [facility]. Lisa Aguilar LPN [facility] 07-24-2024 Miscellaneous Notes [facility] form for CGM /Pump completed and signed per Provider for Medtronic 780G pump and Guardian 4. Completed form and JOSE X2 documentation faxed as requested to [facility]. Lisa Aguilar LPN Images from the original note were not included. Jessica Guerrero APRN.FRIEDA Ashby She was able to get upgraded pump recently. I am sending her to [employer] [facility] [employer] to start. She will need new supplies from [facility] including Guardian 4 CGM and supplies for Medtronic 780 G. Jessica Guerrero APRN.PRE PAROLE COUNSELING AIDE documented in this encounter [facility] 07-23-2024 Note HNO ID: [id number] Author: VAMSI CARSON, STIVEN Service: ? Author Type: Registered Nurse Type: Progress Notes Filed: 07/23/2024 09:04 Note Text: DIABETES CARE AND EDUCATION VISIT Location: [place] Type of visit: In person individual PATIENT'S [...] Narrative DIABETES CARE AND EDUCATION VISIT Location: [place] Type of visit: In person individual PATIENT'S [...] TIME: 8:47 AM documented in this encounter [facility] 07-19-2024 Telephone encounter Note Images from the original note were not included. Jessica Guerrero, ESTEFANIA.PRE PAROLE COUNSELING AIDE P Indep Endo Ma Pool She was able to get upgraded pump recently. I am sending her to [employer] and [employer] to start. She will need new supplies from [facility] including Guardian 4 CGM and supplies for Medtronic 780 G. Jessica Guerrero APRN.PRE PAROLE COUNSELING AIDE [facility] 07-19-2024 History of Present illness Narrative [facility] DIABETES VISIT VIRTUAL VISIT I have communicated my name and active licensure. The patient's identity and physical location were verified at the time of this visit. Either the patient or their legal sales representative printing paper has been informed of the risks and [...] 43 Units subcutaneously every 24 hours. Insulin [place], Disposable, (PEN NEEDLE) 32 gauge x 5/32 [...] Memory Loss: No Seizures: No PHYSICAL EXAMINATION: [facility] 11/26/2022 General: Well appearing, alert, in no acute distress, well nourished. Lung: Unlabored on room air Neurological: alert and oriented x3 IMPRESSION/PLAN Ms. Villa is a 28 year old female who returns to the Department of Endocrinology for diabetes management. (E10.65) Type 1 diabetes mellitus with hyperglycemia, with long-term current use of insulin ([facility]) (primary encounter diagnosis) (Z96.41) Insulin pump status - Undetermined control - She was able to get upgraded pump back recently - Plans to send loaner back as it would be monthly charge - Will have her schedule visit with educator to start pump - Message sent to Umair at [employer] to help with upgrade to 780G and start Guardian 4 CGM - Will reach out to [facility] so she can get supplies - [...] I will reach out to Umair at [employer] about new pump and CGM 5) Update [...] Next visit in 2 months. Jessica Guerrero APRN.[facility] Endocrinology & Metabolism [place] Some elements in this note were copied from my last note and have been updated as appropriate and reflect medical decision making today. documented in this encounter [facility] 07-19-2024 Note HNO ID: [id number] Author: JESSICA GUERRERO APRN.FRIEDA Service: ? Author Type: Nurse Practitioner Type: Progress Notes Filed: 07/19/2024 15:15 Note Text: [facility] DIABET[facility]IT VIRTUAL VISIT I have communicated my name and active licensure. The patient's identity and physical location were verified at the time of this visit. Either the patient or their legal sales representative printing paper has been informed of the risks and [...] 43 Units subcutaneously every 24 hours. Insulin [place], Disposable, (PEN NEEDLE) 32 gauge x 5/32 [...] [facility] 07-10-2024 Note HNO ID: [id number] Author: JASON PAREDES MD Service: ? Author [...] L2 SAB0 IAB0 Ectopic0 Multiple0 Live Births2 Library Historian History LMP: 11/26/2022 (Exact Date), Having periods Age at Menarche: 12 Age at First : Age at Menopause: Library Historian History Comments: Sexual Activity: Yes; Male Contraception: [...] discussed with the Patient or Patient's Authorized Ammonia Refrigeration Technician. As applicable, any other physician, advance practice provider, medical student, or other health professional student that will be observing or involved in the sensitive examination for educational or training purposes was discussed with the Patient or Authorized Ammonia Refrigeration Technician. The Patient or Authorized Ammonia Refrigeration Technician has agreed to proceed with the sensitive [...] external genitalia normal, normal Bartholin's glands, urethra, Leighton's glands, no vulvar lesions, no cervical lesions, [...] L2 SAB0 IAB0 Ectopic0 Multiple0 Live Births2 Library Historian History LMP: 11/26/2022 (Exact Date), Having periods Age at Menarche: 12 Age at First : Age at Menopause: Library Historian History Comments: Sexual Activity: Yes; Male Contraception: [...] discussed with the Patient or Patient's Authorized Ammonia Refrigeration Technician. As applicable, any other physician, advance practice provider, medical student, or other health professional student that will be observing or involved in the sensitive examination for educational or training purposes was discussed with the Patient or Authorized Ammonia Refrigeration Technician. The Patient or Authorized Ammonia Refrigeration Technician has agreed to proceed with the sensitive [...] external genitalia normal, normal Bartholin's glands, urethra, Leighton's glands, no vulvar lesions, no cervical lesions, [...] Jason Paredes MD documented in this encounter [facility] 06-25-2024 Telephone encounter Note Message has been relayed to patient via phone. Patient verbalizes understanding. [employer] message sent for patients reference as requested. [facility] 06-25-2024 Miscellaneous Notes Message has been relayed to patient via phone. Patient verbalizes understanding. [employer] message sent for patients reference as requested. I recommend she sees nurse educator to review pump options- I am [...] any further questions or concerns, Jessica Guerrero APRN.PRE PAROLE COUNSELING AIDE JOSE- 03/12/24 NOV- 07/19/24 Spoke to patient [...] is currently using a loaner pump through [employer], that she will be billed $3,600 for. Patient is agreeable to any pump suggestions from provider. Insurance states she will have coverage for pumps, except for [employer]. Patient is also in need of a refill of Insulin Lispro. Would like pen-injector sent to [facility] Discussed with provider in office Please advise Patient needs a new pump other than med[employer] pump. She also needs pen novolog while she awaits a new pump documented in this encounter [facility] 06-25-2024 Telephone encounter Note I recommend she sees nurse educator to review pump options- I am [...] any further questions or concerns, Jessica Guerrero APRN.PRE PAROLE COUNSELING AIDE T [facility] 06-25-2024 Telephone encounter Note JOSE- 03/12/24 NOV- [...] Insulin Lispro. Would like pen-injector sent to [facility] Discussed with provider in office Please advise [facility] 06-24-2024 Telephone encounter Note Patient needs a new pump other than medton[employer] pump. She also needs pen novolog while she awaits a new pump T [facility] Work Phone: 06-17-2024 Telephone encounter Note Noted. Copy scanned into chart [facility] 06-17-2024 Miscellaneous Notes Noted. Copy scanned into chart Patient has been identified by name and date of : Yes Type of form: [employer] Medication Reconciliation Post Discharge V2 Form received via: Fax When form is completed, fax form to fax number provided. Form has been forwarded to: Provider's mailbox. Provider name: Dr. Joshua Quinteros documented in this encounter [facility] 06-17-2024 Telephone encounter Note Patient has been identified by name and date of : Yes Type of form: [employer] Medication Reconciliation Post Discharge V2 Form received via: Fax When form is completed, fax form to fax number provided. Form has been forwarded to: Provider's mailbox. Provider name: Dr. Joshua Quinteros [facility] 06-11-2024 [facility] 05-24-2024 Telephone encounter Note Spoke to pt. JOSE 03/12/24 ( we can sent notes over, if needed) 07/19/24 We have not received any new order forms from [employer] or [employer]. Advised pt to reach out. [facility] 05-24-2024 Miscellaneous Notes Spoke to pt. JOSE [...] Please keep me updated if any issues. Jsesica Guerrero APRN.FRIEDA JOSE 03/12/24 Joshua [facility]PA 05/28/24 Josue Pt uses [facility] for supplies Has had loaner pump x3 months through [employer] and now has to return it or pay $3000 out of pocket. Advised pt she has to call [facility] and have them send us an order [...] pay the $3000,was told to call her inspector semiconductor wafer for assistance. documented in this encounter [facility] 05-24-2024 Telephone encounter Note Patient has to reschedule her oct appt and will be completely out of her pump supplies before her next June appt. Please advise she needs her pump suppllies [facility] Work Phone: 05-17-2024 Telephone encounter Note Lantus refill sent in. Please keep me updated if any issues. Jessica Guerrero APRN.FRIEDA T [facility] 05-17-2024 Telephone encounter Note JOSE 03/12/24 Joshua [facility]PA 05/28/24 Josue Pt uses [facility] for supplies Has had loaner pump x3 months through [employer] and now has to return it or pay $3000 out of pocket. Advised pt she has to call [facility] and have them send us an order form for a new pump (have to see if insurance will pay for a new pump- Old pump was 5 years old) Told pt she has to let us know if she is without a pump and needs insulin ordered. Verbalized understanding. [facility] 05-16-2024 Telephone encounter Note Pt got a [...] pay the $3000,was told to call her inspector semiconductor wafer for assistance. [facility] 05-06-2024 Telephone encounter Note Medication: Skyrizi 150mg/ml Dosing Schedule: 150mg every 12 weeks Prior Authorization: Submitted date: 05.06.2024 PA reference #: [id number] Approval dates: 05.06.2024-08.27.2024 [facility] [phone] [facility] 05-06-2024 Miscellaneous Notes Medication: Skyrizi 150mg/ml Dosing Schedule: 150mg every 12 weeks Prior Authorization: Submitted date: 05.06.2024 PA reference #: [id number] Approval dates: 05.06.2024-08.27.2024 [facility] [phone] documented in this encounter [facility] 04-08-2024 Telephone encounter Note Prescription Refill Information [...] Yazmin Zaldivar April 08, 2024 1:18 PM [facility] 04-08-2024 Miscellaneous Notes Prescription Refill Information The [...] 2024 1:18 PM documented in this encounter [facility] 03-12-2024 History of Present illness Narrative Images from the original note were not included. Last Visit: 12/13/2023 Ms. Villa is here for follow up regarding her DM Type 1. Is patient interested in MyChart? Patient uses it SMBG: Hyperglycemia: Yes, but rare Type of Monitor: [employer] 630G/ Guardian Frequency of Monitorin-8 times a [...] hyperglycemia, with long-term current use of insulin ([facility]) (primary encounter diagnosis) (Z96.41) Insulin pump status [...] which included preparing to see the patient, aafg-ft-wopf patient care, completing clinical documentation, communicating results to the patient/family/caregiver, and care coordination (not separately reported). documented in this encounter [facility] 03-12-2024 Note HNO ID: [id number] Author: LISA AGUILAR LPN Service: ? Author [...] 03-05-2024 Telephone encounter Note Faxed and filed. [facility] 03-05-2024 Miscellaneous Notes Faxed and filed. Signed On your desk. Please sign Patient has been identified by name and date of : Yes Type of form: [employer] Form received via: Fax When form is completed, fax form to fax number provided. Form has been forwarded to: SILVINO Liriano documented in this encounter [facility] 03-05-2024 Telephone encounter Note Signed [facility] Work Phone: 03-04-2024 Telephone encounter Note On your desk. Please sign [facility] 03-02-2024 Telephone encounter Note Patient has been identified by name and date of : Yes Type of form: [employer] Form received via: Fax When form is completed, fax form to fax number provided. Form has been forwarded to: SILVINO Liriano [facility] 02-14-2024 Telephone encounter Note Spoke with patient via phone and reviewed orders per [facility] notes. The patient is currently taking [...] understanding. No further questions at this time. [facility] 02-14-2024 Miscellaneous Notes Spoke with patient via phone and reviewed orders per [facility] notes. The patient is currently taking [...] pump on. Patient can be reached at [phone] documented in this encounter [facility] 02-14-2024 Telephone encounter Note Patient stated that her 630G pump malfunctioned and she had to get a new one. Patient needs to now what settings to put the pump on. Patient can be reached at [phone] [facility] 02-13-2024 Telephone encounter Note Images from the original note were not included. Returned patient's call. Pt states her pump got water on it and stopped working. Pt requests back up medication. Lantus and Humalog sent to the pharmacy of patient's preference. Jenn Solo MD Clinical Fellow PGY-4 Endocrinology and Metabolism [place] [facility] 02-13-2024 Miscellaneous Notes Images from the original note were not included. Returned patient's call. Pt states her pump got water on it and stopped working. Pt requests back up medication. Lantus and Humalog sent to the pharmacy of patient's preference. Jenn Solo MD Clinical Fellow PGY-4 Endocrinology and Metabolism [place] documented in this encounter [facility] 01-25-2024 Telephone encounter Note Returned pt's call. Pt scheduled for 02/01/24 for ILK. [facility] 01-25-2024 Miscellaneous Notes Returned pt's call. Pt [...] either. documented in this encounter [facility] 01-24-2024 Telephone encounter Note Patient left a voicemail on the nurses line returning ileana's call. [facility] 01-24-2024 Miscellaneous Notes Patient left a voicemail [...] either. documented in this encounter [facility] [employer] 01-24-2024 Telephone encounter Note Attempted to contact patient to offer/schedule for ILK injection to the stubborn spot on her scalp. Advised to return call if she would like to schedule. [facility] [employer] [facility] 01-23-2024 Telephone encounter Note Spoke to patient today to set up delivery of Skyrizi. She states that she has a stubborn spot on her scalp that is not going away. Everything else is going well but the topicals are not helping either. [facility] Note HNO ID: [id number] Author: KYARA LUIS RN Service: ? Author [...] discharged from care coordination. Kyara Luis RN [facility] 12-15-2023 History of Present illness [...] Kyara Luis RN documented in this encounter [facility] 12-15-2023 Note Patient Outreach (MR CAC) KATHLEEN VILLA ([id number]) 1995 F CHT Date Time Provider Department 12/15/23 KYARA LUIS [facility] During your visit today, we recorded the [...] Date Reviewed: 12/13/2023 Reviewed by: Jessica Guerrero APRN.PRE PAROLE COUNSELING AIDE - Fully Assessed Reason for Visit: [facility] Chronic Care [7677] Prescriptions as of 12/15/2023 - promethazine (PHENERGAN) [...] (post-traumatic stress disorder) [F43.10] 12/25/2012 DVT prophylaxis [[id number]] 12/25/2012 09/04/2013 DISPOSITION AND FOLLOW-UP [V999.01] 12/25/2012 09/04/2013 HTN (hypertension) [I10] Hypertension in , antepartum [O16.9] 09/19/2013 01/08/2014 GBS (group B Streptococcus carrier), +RV cultur*11/11/2013 04/16/2014 [Z34.90] 11/22/2013 04/16/2014 Diabetes mellitus in (HCC) [O24.919] 12/25/2013 04/16/2014 Diabetic ketoacidosis without coma associated w*01/08/2014 02/04/2023 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] 01/08/2014 DVT prophylaxis [[id number]] 02/25/2014 04/16/2014 care and examination [Z39.2] 02/25/2014 04/16/2014 Near syncope [R55] 06/17/2014 Dyspnea [R06.00] 11/04/2014 Pre-op testing [Z01.818] 11/28/2014 Atelectasis [J98.11] 12/10/2014 Fluid overload [E87.70] 12/10/2014 12/15/2014 Tachycardia, unspecified [R00.0] 12/10/2014 12/12/2014 Post-operative pain [G89.18] (more content not included)... [facility] 12-13-2023 Instructions Jessica Guerrero APRN.CNP [...] in 3 months documented in this encounter [facility] 12-13-2023 History of Present illness Narrative Images [...] Other maternal great grandma I reviewed the Licensed Professional Counselor's notes with this visit for vital signs, [...] grandmother DM2 She is living at a long term currently, will be moving at the end [...] patient is currently taking Humalog insulin via [employer] 630G insulin pump in manual mode at [...] hyperglycemia, with long-term current use of insulin ([facility]) (primary encounter diagnosis) (Z96.41) Insulin pump status - Worsening control - She is having frequent lows - Will adjust basal rate to help prevent low readings - I will reach out to [employer] regarding why CGM order is delayed as [...] months. Jessica Guerrero APRN.CNP Endocrinology & Metabolism [place] Some elements in this note were copied from my last note and have been updated as appropriate and reflect medical decision making today. documented in this encounter [facility] 12-13-2023 Note HNO ID: [id number] Author: JESSICA GUERRERO APRN.CNP Service: ? Author [...] Other maternal great grandma I reviewed the Licensed Professional Counselor's notes with this visit for vital signs, [...] [facility] 11-22-2023 Note HNO ID: [id number] Author: KYARA LUIS RN Service: ? Author [...] TCM completed will follow for care coordination. Director Targeted Marketing plan for next outreach: Will follow up Kyara Luis RN November 22, 2023 2:29 PM [facility] 11-22-2023 Note Patient Outreach ( [facility] KATHLEEN VILLA ([id number]) 1995 F T Date Time Provider Department 11/22/23 KYARA LUIS [facility] During your visit today, we recorded the [...] TCM completed will follow for care coordination. 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 [facility] 11-14-2023 History of Present illness Narrative DATE OF SERVICE: 11/14/2023 PATIENT NAME: Kathleen Villa : 1995 AGE: 28 y.o. CLINIC NUMBER: [id number] Visit type: Established patient Chief Complaint Patient [...] reapply. 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 Patient advised to perform self-skin checks and call for follow up appointment if any new or concerning lesions detected. Follow up in about 1 year (around 11/13/2024) for Psoriasis f/u. Leesa Huddleston PA-C 11/14/23 5:13 PM REFERRING MD: documented in this encounter [facility] [employer] 11-10-2023 Note HNO ID: [id number] Author: KYARA LUIS RN Service: ? Author [...] yet to schedule but plans to call. Director Targeted Marketing plan for next outreach: Will follow up Signature Kyara Luis RN November 10, 2023 [facility] 11-10-2023 Note Patient Outreach ( [facility] DAISYKATHLEEN Swain ([id number]) 1995 F CHT Date Time Provider Department 11/10/23 KYARA LUIS [facility] During your visit today, we recorded the [...] yet to schedule but plans to call. 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 Director Targeted Marketing plan for next outreach: Will follow up Signature Kyara Luis RN November 10, 2023 documented in this encounter [facility] 11-03-2023 Note HNO ID: [id number] Author: KYARA LUIS RN Service: ? Author Type: Registered Nurse Type: Progress Notes Filed: 11/03/2023 12:45 Note Text: Summary: TCM follow up TRANSITION CARE MANAGEMENT (TCM) FOLLOW-UP NOTE Provider Action/FYI Patient identified by name and date of : YES Summary: TCM follow up call placed, patient requesting call back at later date, currently resting Director Targeted Marketing plan for next outreach: Will follow up Signature Kyara Luis RN November 03, 2023 [facility] 11-03-2023 Note Patient Outreach (MR CAC) KATHLEEN VILLA ([id number]) 1995 F CHT Date Time Provider Department 11/03/23 KYARA LUIS [facility] During your visit today, we recorded the following information about you: Kyara Luis RN 11/03/2023 12:45 PM Signed TRANSITION CARE MANAGEMENT (TCM) FOLLOW-UP NOTE Provider Action/FYI Patient identified by name and date of : YES Summary: TCM follow up call placed, patient requesting call back at later date, currently resting Director Targeted Marketing plan for next outreach: Will follow up [...] (post-traumatic stress disorder) [F43.10] 12/25/2012 DVT prophylaxis [[id number]] 12/25/2012 09/04/2013 DISPOSITION AND FOLLOW-UP [V999.01] 12/25/2012 09/04/2013 HTN (hypertension) [I10] Hypertension in , antepartum [O16.9] 09/19/2013 01/08/2014 GBS (group B Streptococcus carrier), +RV cultur*11/11/2013 04/16/2014 [Z34.90] 11/22/2013 04/16/2014 Diabetes mellitus in (HCC) [O24.919] 12/25/2013 04/16/2014 Diabetic ketoacidosis without coma associated w*01/08/2014 02/04/2023 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] 01/08/2014 DVT prophylaxis [[id number]] 02/25/2014 04/16/2014 care and examination [Z39.2] 02/25/2014 [...] Encounter Status:Closed by KYARA LUIS on 11/03/23 [facility] 11-03-2023 History of Present illness Narrative Summary: TCM follow up TRANSITION CARE MANAGEMENT (TCM) FOLLOW-UP NOTE Provider Action/FYI Patient identified by name and date of : YES Summary: TCM follow up call placed, patient requesting call back at later date, currently resting Director Targeted Marketing plan for next outreach: Will follow up Signature Kyara Luis RN November 03, 2023 documented in this encounter [facility] 10-27-2023 Note HNO ID: [id number] Author: KYARA LUIS RN Service: ? Author Type: Registered Nurse Type: Progress Notes Filed: 10/27/2023 14:48 Note Text: Summary: TCM follow up TRANSITION CARE MANAGEMENT (TCM) FOLLOW-UP NOTE Provider Action/FYI Patient identified by name and date of : YES Discharge Network Status: Ibp-sn-Hqqbjhe (OON) Discharge Summary: TCM follow up call placed to patient, was at ED on 10/25 due to anxiety, started on ativan which is helping. Per patient has thoughts of self harm/cutting, this has subsided, no suicidal ideation. Has been in contact with [facility] intensive outpatient program and has evaluation on 11/05. Has been in contact with her counselor. Has number to crisis and encouraged to return to ED if new/worsening symptoms. Monitoring blood sugars, states have been stable. Per patient may have to change to PCP in [place], has difficulty obtaining ride to [place]. Patient asked if name and number of locals physicians can be sent to her, sent via email. States has all medications, taking as directed. Director Targeted Marketing plan for next outreach: Will follow up Signature Kyara Luis RN October 27, 2023 [facility] 10-27-2023 History of Present illness Narrative Summary: TCM follow up TRANSITION CARE MANAGEMENT (TCM) FOLLOW-UP NOTE Provider Action/FYI Patient identified by name and date of : YES Discharge Network Status: [id number] (OON) Discharge Summary: TCM follow up call placed to patient, was at ED on 10/25 due to anxiety, started on ativan which is helping. Per patient has thoughts of self harm/cutting, this has subsided, no suicidal ideation. Has been in contact with [facility] intensive outpatient program and has evaluation on 11/05. Has been in contact with her counselor. Has number to crisis and encouraged to return to ED if new/worsening symptoms. Monitoring blood sugars, states have been stable. Per patient may have to change to PCP in [place], has difficulty obtaining ride to [place]. Patient asked if name and number of locals physicians can be sent to her, sent via email. States has all medications, taking as directed. Director Targeted Marketing plan for next outreach: Will follow up Signature Kyara Luis RN October 27, 2023 documented in this encounter [facility] 10-27-2023 Note Patient Outreach (MR CAC) KATHLEEN VILLA ([id number]) 1995 F CHT Date Time Provider Department 10/27/23 KYARA LUIS [facility] During your visit today, we recorded the following information about you: Kyara Luis RN 10/27/2023 2:48 PM Signed TRANSITION CARE MANAGEMENT (TCM) FOLLOW-UP NOTE Provider Action/FYI Patient identified by name and date of : YES Discharge Network Status: [id number] (OON) Discharge Summary: TCM follow up call [...] may have to change to PCP in [place], has difficulty obtaining ride to [place]. Patient asked if name and number of locals physicians can be sent to her, sent via email. States has all medications, taking as directed. 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 [facility] 10-20-2023 Note HNO ID: [id number] Author: KYARA LUIS RN Service: ? Author [...] having a difficult time at a homeless long term. Patient does attend weekly counseling at [employer], encouraged her to reach out to her [...] business days post-discharge SUMMARY: -Pt discharged from [facility] on 10/18/23. -Follow up appointment Endo. -Medication [...] per patient, her last A1C with her inspector semiconductor wafer was 6.7. She had however had recurrent [...] to follow up with her PCP and inspector semiconductor wafer as well as observatory director o/a of gastroparesis. Patient seen and examined prior to discharge. She had no active complaints and had an uneventful night. Review of systems is otherwise negative. Labs and vitals reviewed. Home meds reviewed and reconciled. Kyara Luis RN [facility] 10-20-2023 History of Present illness [...] having a difficult time at a homeless long term. Patient does attend weekly counseling at [facility], encouraged her to reach out to her [...] business days post-discharge SUMMARY: -Pt discharged from [facility] on 10/18/23. -Follow up appointment Endo. -Medication [...] per patient, her last A1C with her inspector semiconductor wafer was 6.7. She had however had recurrent [...] to follow up with her PCP and inspector semiconductor wafer as well as observatory director o/a of gastroparesis. Patient seen and examined prior to discharge. She had no active complaints and had an uneventful night. Review of systems is otherwise negative. Labs and vitals reviewed. Home meds reviewed and reconciled. Kyara Luis RN documented in this encounter [facility] 10-20-2023 Note Patient Outreach ( CARLOS) KATHLEEN VILLA ([id number]) 1995 F T Date Time Provider Department 10/20/23 KYARA LUIS [facility] During your visit today, we recorded the [...] having a difficult time at a homeless long term. Patient does attend weekly counseling at [facility], encouraged her to reach out to her [...] business days post-discharge SUMMARY: -Pt discharged from [facility] on 10/18/23. -Follow up appointment Endo. -Medication [...] per patient, her last A1C with her inspector semiconductor wafer was 6.7. She had however had recurrent [...] to follow up with her PCP and inspector semiconductor wafer as well as observatory director o/a of gastroparesis. Patient seen and examined [...] of 01/09/2020: All (more content not included)... [facility] 10-19-2023 Note HNO ID: [id number] Author: KYARA LUIS RN Service: ? Author Type: Registered Nurse Type: Progress Notes Filed: 10/19/2023 12:05 Note Text: Summary: TCM call TRANSITION CARE MANAGEMENT (TCM) FOLLOW-UP NOTE Provider Action/FYI Summary: TCM call placed to patient, no answer, message left to return my call at [phone] ext [phone] Director Targeted Marketing plan for next outreach: Will follow up Signature Kyara Luis RN October 19, 2023 [facility] 10-19-2023 Note Patient Outreach (MR CAC) KATHLEEN VILLA ([id number]) 1995 F T Date Time Provider Department 10/19/23 KYARA LUIS [facility] During your visit today, we recorded the following information about you: Kyara Luis RN 10/19/2023 12:05 PM Signed TRANSITION CARE MANAGEMENT (TCM) FOLLOW-UP NOTE Provider Action/FYI Summary: TCM call placed to patient, no answer, message left to return my call at [phone] ext [phone] Director Targeted Marketing plan for next outreach: Will follow up [...] (post-traumatic stress disorder) [F43.10] 12/25/2012 DVT prophylaxis [[id number]] 12/25/2012 09/04/2013 DISPOSITION AND FOLLOW-UP [V999.01] 12/25/2012 09/04/2013 HTN (hypertension) [I10] Hypertension in , antepartum [O16.9] 09/19/2013 01/08/2014 GBS (group B Streptococcus carrier), +RV cultur*11/11/2013 04/16/2014 [Z34.90] 11/22/2013 04/16/2014 Diabetes mellitus in (HCC) [O24.919] 12/25/2013 04/16/2014 Diabetic ketoacidosis without coma associated w*01/08/2014 02/04/2023 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] 01/08/2014 DVT prophylaxis [[id number]] 02/25/2014 04/16/2014 care and examination [Z39.2] 02/25/2014 [...] Encounter Status:Closed by KYARA LUIS on 10/19/23 [facility] 10-19-2023 History of Present illness Narrative Summary: TCM call TRANSITION CARE MANAGEMENT (TCM) FOLLOW-UP NOTE Provider Action/FYI Summary: TCM call placed to patient, no answer, message left to return my call at [phone] ext [phone] Director Targeted Marketing plan for next outreach: Will follow up Signature Kyara Luis RN October 19, 2023 documented in this encounter [facility] 10-17-2023 History and physi cristina note Note Date/Time October 17, 2023 11:24am [facility] Medical Records Department [address] [place] [address] History & Physical Exam 10/17/23 1120 MR#: [id number] Acct: [id number] Name: KATHLEEN VILLA Rep #:[id number] : [...] DKA and an known type I diabetic. [facility] Medical History Anxiety Borderline personality [...] gauge x 1/2 (Ultra-Thin II Insulin Pen [place]) #100 ea08/10/23 [Rx Last Taken Unknown] prochlorperazine [...] 88.4 H, Lymph % (Auto) 7.8 L, Broome % (Auto) 2.4, Eos % (Auto) 0.1, [...] was 6.7. * follows up with an inspector semiconductor wafer in [facility] in [place]. * last A1C from 08/07/2023 was 7 * #Gastroparesis in the setting of type 1 diabetes mellitus * on compazine. Add on phenergan prn * will benefit from metoclorpromide if nausea persists. * #Hypotension * BP is down in the 90s systolic. * will hydrate with IVF and trend. * DVT prpphylaxis: lovenox. Charges/Coding Visit Charges Inpatient E&M: 61998 Init Hosp L3 10/17/23 3564 <Electronically signed by Vita Jefferson MD> Cosigner Signature (if applicable): CC: Dr. Vita Jefferson MD; FUNMILAYO SMITH~ Signed [facility] Work Phone: 1(774) 945-535202-20-2024 Discharge summary Author Alexandro Garces [facility] October 17, 2023 11:38am Note Date/Time October 17, 2023 11:24am [facility] Medical Records Department [address] [place] [address] Emergency Department Summary 10/17/23 MR#: [id number] Acct: [id number] Name: KATHLEEN VILLA Rep #:[id number] : [...] gauge x 1/2 (Ultra-Thin II Insulin Pen [place]) #100 ea08/10/23 [Rx Last Taken Unknown] ibuprofen [...] Medical decision making narrative: Patient placed on computing tutor. IV line initiated. Labwork obtained to evaluate [...] 88.4 H Lymph % (Auto) 7.8 L Broome % (Auto) 2.4 Eos % (Auto) 0.1 [...] Garces MD - Last Filed: 10/17/23 11:38> [facility] MDM Narrative Medical decision making narrative: Patient placed on computing tutor. IV line initiated. Labwork obtained to evaluate [...] 88.4 H Lymph % (Auto) 7.8 L Broome % (Auto) 2.4 Eos % (Auto) 0.1 [...] minutes, Including time spent:, Discussing w/Patient &/or Family/Precision Machine Operator, Discussing w/Consultants, Arranging Admission or Transfer, Performing Direct Patient Care at Bedside and - (35 minutes) Discharge Plan Dx/Rx/DC Orders Clinical Impression: DKA (diabetic ketoacidosis), Tachycardia, Nausea & vomiting, Acute dehydration Disposition Disposition: Acute Care Hospital [facility] What to do if you have Problems For any increased pain, shortness of breath, bleeding, nausea or vomiting, chest pain, or any unexpected problems, contact your Primary Care Provider. Call [facility] ([phone]) or report to the closest Emergency Room. Call 911 if necessary. 10/17/23 1138 <Electronically signed by Alexandro Garces MD> Cosigner Signature (if applicable): 10/17/23 1131 <Electronically signed by Jacqueline Alvarez RN> CC: FUNMILAYO SMITH ~ Signed [facility] Work Phone: 1(524) 689-142602-15-2024 NoteHNO ID: [id number] Author: KYARA LUIS RN Service: ? Author Type: Registered Nurse Type: Progress Notes Filed: 10/12/2023 14:16 Note Text: Summary: PCC follow up PRIMARY CARE COORDINATION FOLLOW-UP NOTE Provider Action/FYI Patient identified by name and date of . YES Summary: PCC follow up placed to patient, has moved out of long term, now sharing and apartment. Per patient is [...] 100 mg/dL or on a high statin Director Targeted Marketing plan for next outreach: Will follow up Signature Kyara Luis RN October 12, 2023[facility]02-15-2024 NotePatient Outreach (MRCAC) KATHLEEN VILLA ([id number]) 1995 F T Date Time Provider Department 10/12/23 KYARA LUIS During your visit today, we recorded the following information about you: Kyara Luis RN 10/12/2023 2:16 PM Signed PRIMARY CARE COORDINATION FOLLOW-UP NOTE Provider Action/FYI Patient identified by name and date of . YES Summary: PCC follow up placed to patient, has moved out of long term, now sharing and apartment. Per patient is [...] 100 mg/dL or on a high statin Director Targeted Marketing plan for next outreach: Will follow up [...] LPN - Fully Assessed Reason for Visit: [facility] Chronic Care [9900] Prescriptions as of 10/12/2023 - promethazine (PHENERGAN) [...] (post-traumatic stress disorder) [F43.10] 12/25/2012 DVT prophylaxis [RFD1721] 12/25/2012 09/04/2013 DISPOSITION AND FOLLOW-UP [V999.01] 12/25/2012 09/04/2013 HTN (hypertension) [I10] Hypertension in , antepartum [O16.9] 09/19/2013 01/08/2014 GBS (group B Streptococcus carrier), +RV cultur*11/11/2013 04/16/2014 [Z34.90] 11/22/2013 04/16/2014 Diabetes mellitus in (HCC) [O24.919] 12/25/2013 04/16/2014 Diabetic ketoacidosis without coma associated w*01/08/2014 02/04/2023 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 YES Summary: PCC follow up placed to patient, has moved out of long term, now sharing and apartment. Per patient is [...] 100 mg/dL or on a high statin Director Targeted Marketing plan for next outreach: Will follow up Signature Kyara Luis RN October 12, 2023 [facility] Miscellaneous Notes* Telephone Encounter - Lisa Aguilar LPN - 10/02/2023 10:52 AM EST [employer] forms faxed to office for pump and CGM supplies, [employer] and [employer]. [employer] as back up. Completed forms and JOSE documentation faxed as requested. Lisa Aguilar LPN documented [facility] NotePatient Outreach (MRCAC) KATHLEEN VILLA ([id number]) 1995 F CHT Date Time Provider Department [...] Per patient has been moved to different long term in [place] and will not be moving to [place]. States blood sugars are stable. Using insurance for transportation and will need to call them to update her new address. Has all medications, taking as directed. Director Targeted Marketing plan for next outreach: Will follow up [...] LPN - Fully Assessed Reason for Visit: Coupler Chronic Care [3612] Prescriptions as of 09/29/2023 [...] (post-traumatic stress disorder) [F43.10] 12/25/2012 DVT prophylaxis [[id number]] 12/25/2012 09/04/2013 DISPOSITION AND FOLLOW-UP [V999.01] 12/25/2012 09/04/2013 HTN (hypertension) [I10] Hypertension in , antepartum [O16.9] 09/19/2013 01/08/2014 GBS (group B Streptococcus carrier), +RV cultur*11/11/2013 04/16/2014 [Z34.90] 11/22/2013 04/16/2014 Diabetes mellitus in (HCC) [O24.919] 12/25/2013 04/16/2014 Diabetic ketoacidosis without coma associated w*01/08/2014 02/04/2023 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] 01/08/2014 DVT prophylaxis [SSR1616] 02/25/2014 04/16/2014 care and examination [Z39.2] 02/25/2014 [...] 02/07/2023 Encounter Status:Closed by KYARA LUIS on 09/29/23[facility] 09-29-2023 NoteHNO ID: [id number] Author: KYARA LUIS RN Service: ? Author Type: Registered Nurse Type: Progress Notes Filed: 09/29/2023 11:04 Note Text: Summary: PCC follow up PRIMARY CARE COORDINATION FOLLOW-UP NOTE Provider Action/FYI Patient identified by name and date of . YES Summary: Follow up call placed to patient, continues to have nausea, taking compazine. Per patient has been moved to different long term in [place] and will not be moving to [place]. States blood sugars are stable. Using insurance for transportation and will need to call them to update her new address. Has all medications, taking as directed. Director Targeted Marketing plan for next outreach: Will follow up Signature Kyara Luis RN September 29, 2023[facility] History of Present illness Narrative* Kyara Luis RN - 09/29/2023 10:48 AM ESTSummary: PCC follow up PRIMARY CARE COORDINATION FOLLOW-UP NOTE Provider Action/FYI Patient identified by name and date of . YES Summary: Follow up call placed to patient, continues to have nausea, taking compazine. Per patient has been moved to different long term in [place] and will not be moving to [place]. States blood sugars are stable. Using insurance for transportation and will need to call them to update her new address. Has all medications, taking as directed. Director Targeted Marketing plan for next outreach: Will follow up Signature Kyara Luis RN September 29, 2023 [facility]24 NoteHNO ID: [id number] Author: KYARA LUIS RN Service: ? Author Type: Registered Nurse Type: Progress Notes Filed: 09/22/2023 10:16 Note Text: Summary: ED follow up [employer] ARCH[employer] EMERGENCY DEPARTMENT FOLLOW UP INITIAL CONTACT Provider Action/FYI: Patient at [place] ED 09/20, Hyperglycemia, nausea/vomiting, was prescribed Reglan-states [...] refills. Patient has been living in homeless long term in [place] making it difficult to keep appointments, also needing follow up with PCP. plan is to be moving to [place] and will be staying at [facility]. Message to office Spoke with patient aware phenergan filled and PCP scheduled for 10/03/23 Patient identified by name and date : YES SUMMARY: -Patient discharged from [place] ED on 09/20/22. -Follow up appointment on [...] for her nausea and vomiting. [facility]ara Luis RN[facility]24 NotePatient Outreach (MRCAC) KATHLEEN VILLA ([id number]) 1995 F CHT Date Time Provider Department 09/21/23 [facility]IS [facility] During your visit today, we recorded the following information about you: Kyara Luis RN 09/22/2023 10:16 AM Addendum [employer] ARCH[employer]ECT EMERGENCY DEPARTMENT FOLLOW UP INITIAL CONTACT Provider Action/FYI: Patient at [place] ED 09/20, Hyperglycemia, nausea/vomiting, was prescribed Reglan-states [...] refills. Patient has been living in homeless long term in [place] making it difficult to keep appointments, also needing follow up with PCP. plan is to be moving to [place] and will be staying at [facility]. Message to office Spoke with patient aware phenergan filled and PCP scheduled for 10/03/23 Patient identified by name and date : YES SUMMARY: -Patient discharged from [place] ED on 09/20/22. -Follow up appointment on [...] Rash Date Reviewed: 09/12/2023 Reviewed by: Lisa Aguilra LPN - Fully Assessed Reason for Visit: Coupler Ed Follow Up [6719] Order(s):promethazine (PHENERGAN) 25 mg tabletTake 1 tablet [...] K31.84] 12/25/2012 PTSD (post-t (more content not included)...[facility] Telephone encounter Note* Telephone Encounter - Mary Moreno PharmD - 08/17/2023 12:47 PM EST SUBJECTIVE Kathleen Villa is a 28 year old Female who was referred to [facility] for clinical management services for Skyrizi 150 MG/ML. Diagnosis Psoriasis vulgaris L40.0 OBJECTIVE Medications: Betamethasone Valerate 0.1 % CREA EX Clobetasol Propionate 0.05 % SOLN EX Finger-Smoothe/FS Body 0.01 % OIL EX Levothyroxine Sodium [...] knows we are available M- 8-5 at [phone]. Mary Moreno Clinical Pharmacist [id number] Miscellaneous Notes* Telephone Encounter - Mary Moreno PharmD - 08/17/2023 12:47 PM EST SUBJECTIVE Kathleen Villa is a 28 year old Female who was referred to [facility] for clinical management services for Skyrizi 150 MG/ML. Diagnosis Psoriasis vulgaris L40.0 OBJECTIVE Medications: Betamethasone Valerate 0.1 % CREA EX Clobetasol Propionate 0.05 % SOLN EX Finger-Smoothe/FS Body 0.01 % OIL EX Levothyroxine Sodium [...] knows we are available M- 8-5 at [phone]. Mary Moreno Clinical Pharmacist [facility] documented in this [facility]12-19-2023 NotePatient Outreach (MRCAC) KATHLEEN VILLA ([id number]) 1995 F T Date Time Provider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 years. Diagnosed at the age of 14. Patient is currently on 670G insulin pump with guardian sensor. Her endocrinology practices in [facility]. She follows with them regularly. Her [...] Edmondson MD - 03/21/2023 4:30 PM EDT [facility] PROGRESS NOTE Assessment and Plan Kathleen Villa [...] that she follows with Dr. Stevens at [facility] Care Plan Care Plan No documented in this [id number] Note* Quick Note - Liang Boothe RN [...] with no further needs at this time. [id number] Note* Plan of Care - Liang Boothe [...] of comfort function goal Outcome: Partially Met [id number] Note* Pharmacy Note - Felicia Montes RPh,PharmD [...] per the patient are well within the road crossing guard expiration date and have been stored at roomtemperature (<28 days). She recently switched to Humalog and said the pump was refilled with brand new insulin before admission. Continue with insulin regimen as written. Please call pharmacy with any questions. Pharmacist: Felicia Montes Date: 03/21/2023 Contact Information: [phone] or Vocera Electronically signed by Felicia Montes [facility],PharmD at 03/21/2023 1:31 PM T [id number] Note* Plan of Care - Liang Boothe [...] of comfort function goal Outcome: Partially Met [id number] Note* Quick Note - Liang Purcell RN - 03/20/2023 6:32 PM EDT Admission skin assessment completed by this nurse and STIVEN Caceres. No skin issues identified at this time. [id number] Note* Plan of Care - Liang Purcell [...] of comfort function goal Outcome: Partially Met [id number] Note* ED Procedure Note - Siddharth Gagnon [...] normal T Waves: T waves normal normal SD interval QT Interval: 514 Clinical impression: non-specific ECG and sinus bradycardia [facility] Work Phone: 1(611) 261-294607-24-2023 Emergency department Note* Zee Chahal RN - 03/20/2023 11:22 AM EDT Bed: 36 Expected date: Expected time: Means of arrival: Comments: ROOM 14 [id number] Emergency department Note* Zee Chahal RN - 03/20/2023 11:22 AM EDT Bed: 36 Expected date: Expected time: Means of arrival: Comments: ROOM 14 * Mariel Gagnon MD - 03/20/2023 6:01 AM EDTAssociated Order(s): EKG 12-lead [facility] ATTENDING NOTE: NAME: Kathleen Villa CSN: [id number] 27 y.o. PCP: No, Physician History: Chief [...] All other components within normal limits Narrative: [facility] has implemented the eGFR [...] All other components within normal limits Narrative: [facility] has implemented the eGFR calculation approach [...] All other components within normal limits Narrative: [facility] has implemented the eGFR calculation approach [...] Procedure Abnormality Status --------- ------ CBC Auto Differential[[id number]] Abnormal Final result Please view results for [...] available in inpatient encounters. Please contact a development system efficiency manager. Mariel Gagnon MD ED Attending Physician [facility] (Please note that portions of this [...] 217about an hour ago documented in this [id number] History and physical note* Ernie Ireland MD - 03/20/2023 11:17 AM EDT [facility] HISTORY AND PHYSICAL -- [facility] Patient Name: Kathleen Villa : 1995 MR #: [id number] Admit Date: 03/20/2023 Physicians: No, Physician (Family); [...] fluid boluses and antiemetics and admitted to [facility] for further management. Past Medical History Past [...] normal coloration Psych: normal mood and affect [id number] History and physical note* Ernie Ireland MD - 03/20/2023 11:17 AM EDT [facility] HISTORY AND PHYSICAL -- [facility] Patient Name: Kathleen Villa : 1995 MR #: [id number] Admit Date: 03/20/2023 Physicians: No, Physician (Family); [...] Chief Complaint nausea/vomiting History of Present Illness Kathlene Villa is a 27 y.o. female patient [...] fluid boluses and antiemetics and admitted to [facility] for further management. Past Medical History Past [...] normal mood and affect documented in this [id number] Note* ED Update Note - Mary Mesa [...] be admitted for further evaluation and treatment. [id number] Physician Emergency department Note* Mariel Gagnon MD - 03/20/2023 6:01 AM EDTAssociated Order(s): EKG 12-lead [facility] ATTENDING NOTE: NAME: Kathleen Villa CSN: [id number] 27 y.o. PCP: No, Physician History: Chief [...] All other components within normal limits Narrative: [facility] has implemented the eGFR [...] All other components within normal limits Narrative: [facility] has implemented the eGFR calculation approach [...] All other components within normal limits Narrative: [facility] has implemented the eGFR calculation approach [...] Procedure Abnormality Status --------- ------ CBC Auto Differential[[id number]] Abnormal Final result Please view results for [...] Note made of prior appendectomy surgical clips. [facility]/cdr Workstation ID: [id number] Procedures: EKG 12-lead [...] available in inpatient encounters. Please contact a development system efficiency manager. Mariel Gagnon MD ED Attending Physician [facility] (Please note that portions of this note have been completed with a voice recognition software. Efforts were made to correct any errors, but occasionally words are mis-transcribed.) Mariel Gagnon MD 03/21/[address] [facility] Work Phone: 1(255) 814-893707-24-2023 Emergency department Note* Tony Hernandez RN - 03/20/2023 4:26 AM EDT PT STATES THAT SHE CAN NOT PROVIDE URINE SAMPLE AND SHE NEEDS STRAIGHT CATH PERFORMED. [id number] Emergency department Triage note* Queta Arias, STIVEN - 03/20/2023 2:17 AM EDT Pt c/o vomiting and abdominal pain that started today, also c/o chest pain, states last bgl was 217about an hour ago [id number] NotePatient Outreach (MRCAC) KATHLEEN VILLA ([id number]) 1995 F T Date Time Provider Department 02/08/23 KYARA LUIS [facility] During your visit today, we recorded the [...] with GI and medication changes made, will pharmacy picking tech new medication from her pharmacy. States that vomiting has resolved, tolerating diet, does have nausea and is on compazine and phenergan at home. Monitors blood sugar 5 times per day, FBS this am 131, has insulin pump and adjust according to carbohydrate intake. Currently waiting on continuous glucose monitor that was ordered at her last endocrinology appointment through [facility], patient calling today to follow up (has [...] -Admitted for: Vomiting/diabetic gastroparesis -Pt discharged from [facility] on 02/04. -Follow up appointment: Has had f/u with GI, declines sooner PCP appointment at this time . -Medication review completed. NEW OR CHANGED MEDICATIONS:NA MEDS HELD/DISCONTINUED:NA BRIEF HOSPITAL COURSE: 27-year-old white female who presented 2 days ago on 01/31 secondary to nausea and vomiting at home. Patient has a known history of diabetic gastroparesis. She follows in [facility]. She was admitted to [place]. Unfortunately she has not been tolerating p.o. intake with the exception of some ice chips Patient would be started on insulin drip while in the ICU. Anion gap would close and the patient would be transitioined to a diet. Blood sugars would remain stable once restarting her insulin pump. She will cotninue following with her personal inspector semiconductor wafer outpatient. Follow up with PCP in one [...] 4 gram chewable tablet (more content not included)...[facility]06-14-2023 NoteHNO ID: [id number] Author: Kyara Luis RN Service: ? Author [...] with GI and medication changes made, will pharmacy picking tech new medication from her pharmacy. States that [...] -Admitted for: Vomiting/diabetic gastroparesis -Pt discharged from [facility] on 02/04. -Follow up appointment: Has had f/u with GI, declines sooner PCP appointment at this time . -Medication review completed. NEW OR CHANGED MEDICATIONS:NA MEDS HELD/DISCONTINUED:NA BRIEF HOSPITAL COURSE: 27-year-old white female who presented 2 days ago on 01/31 secondary to nausea and vomiting at home. Patient has a known history of diabetic gastroparesis. [facility]. She was admitted to [place]. Unfortunately she has not been tolerating p.o. intake with the exception of some ice chips Patient would be started on insulin drip while in the ICU. Anion gap would close and the patient would be transitioined to a diet. Blood sugars would remain stable once restarting her insulin pump. She will cotninue following with her personal inspector semiconductor wafer outpatient. Follow up with PCP in one week. Vital signs were stable on discharge. Patient understood and agreed with discharge plan You may be receiving a survey about your experience. We really value your feedback. If you would fill out the survey, it would help us tremendously as we continue to improve. Kyara Luis RN February 08, 2023 11:36 [facility]06-14-2023 History of Present illness Narrative* Kyara [...] with GI and medication changes made, will pharmacy picking tech new medication from her pharmacy. States that vomiting has resolved, tolerating diet, does have nausea and is on compazine and phenergan at home. Monitors blood sugar 5 times per day, FBSthis am 131, has insulin pump and adjust according to carbohydrate intake. Currently waiting on continuous glucose monitor that was ordered at her last endocrinology appointment through [facility], patient calling today to follow up (has [...] -Admitted for: Vomiting/diabetic gastroparesis -Pt discharged from [facility] on 02/04. -Follow up appointment: Has had f/u with GI, declines sooner PCP appointment at this time . -Medication review completed. NEW OR CHANGED MEDICATIONS:NA MEDS HELD/DISCONTINUED:NA BRIEF HOSPITAL COURSE: 27-year-old white female who presented 2 days ago on 01/31 secondary to nausea and vomiting at home. Patient has a known history of diabetic gastroparesis. She follows in [facility]. She was admitted to [place]. Unfortunately she has not been tolerating p.o. intake with the exception of some ice chips Patient would be started on insulin drip while in the ICU. Anion gap would close and the patient would be transitioined to a diet. Blood sugars would remain stable once restarting her insulin pump. She will cotninue following with her personal inspector semiconductor wafer outpatient. Follow up with PCP in one week. Vital signs were stable on discharge. Patient understood and agreed with discharge plan You may be receiving a survey about your experience. We really value your feedback. If you would fill out the survey, it would help us tremendously as we continue to improve. Kyara Luis RN February 08, 2023 11:36 AM documented in this encounterMer[facility]06-[facility]-2023 NotePatient Outreach (MRCAC) KATHLEEN VILLA ([id number]) 1995 F CHT Date Time Provider Department 02/06/23 KYARA LUIS During your visit today, we recorded the following information about you: Kyara Luis RN 02/06/2023 11:56 AM Signed TRANSITION CARE MANAGEMENT (TCM) FOLLOW-UP NOTE Provider Action/FYI Patient identified by name and date of : YES Summary: Transitional care call placed to patient, message left to return my call at [phone] Director Targeted Marketing plan for next outreach: Will follow up [...] 02/01/2023 Encounter Status:Closed by KYARA LUIS on 02/06/23[facility] 02-06-2023 NoteHNO ID: [id number] Author: Kyara Luis RN Service: ? Author Type: Registered Nurse Type: Progress Notes Filed: 02/06/2023 11:56 AM Note Text: Summary: TCM call TRANSITION CARE MANAGEMENT (TCM) FOLLOW-UP NOTE Provider Action/FYI Patient identified by name and date of : YES Summary: Transitional care call placed to patient, message left to return my call at [phone] ext [phone] Director Targeted Marketing plan for next outreach: Will follow up this week Signature Kyara Luis RN February 06, 2023[facility]06-09-2023 NoteHNO ID: [id number] Author: Clemencia Rivera RN Service: PICC Team Author Type: Registered Nurse Type: Procedures Filed: 02/03/2023 2:30 PM Note Text: MIDLINE INSERTION PROCEDURE NOTE - PICC TEAM NURSES DATE OF PROCEDURE: 02/03/2023 TIME OF PROCEDURE: 1420 ORDERING PHYSICIAN: Juan Carlos Leroy CNP Indications for line placement: Intravenous access Condition of line placement: Sterile Primary Proceduralist: Lewis Fuentes RN Systems Librarian: Clemencia Rivera RN Pre-procedure Review: ALLERGIES Allergen [...] RN Midline Catheter Placement: Brand: BARD Lot: [id number] Number of lumens: 1 Type of Midline: Power Injectable Midline Lumen size: 3 Vietnamese Placement Technique: Lidocaine: Yes, Lidocaine 1% Volume [...] or problems: Call Vascular Access Nurse on [facility] SIGNATURE: Clemencia Rivera RN PATIENT NAME: Kathleen Villa DATE: February 03, 2023 TIME: 2:24 PM PAGER: Call Vascular Access Nurse on [facility] 02-03-2023 NoteHNO ID: [id number] Author: Mary Ordoñez RN Service: Nursing Author Type: Registered Nurse Type: Nursing Progress Note Filed: 02/03/2023 1:55 PM Note Text: Vascular access team at bedside setting up for ordered midline IV placement at this time.[facility]06-09-2023 NoteHNO ID: [id number] Author: Rubio Diana MD Service: Critical Care Author Type: Physician Type: Progress Notes Filed: 02/03/2023 11:39 AM Note Text: [facility] STAFF PHYSICIAN NOTE OF PERSONAL INVOLVEMENT IN [...] of care, medical plan for the day, medical device sales consultant recommendations, medical disposition and current medical [...] Diana MD [facility] DATE of SERVICE: 02/03/2023[facility]06-09-2023 NoteHNO ID: [id number] Author: Yimi Leroy APRN.FRIEDA Service: Critical Care [...] 21 URINALYSIS: Recent Lab (more content not included)...[facility]06-08-2023 NoteHNO ID: [id number] Author: Rubio Diana MD Service: Critical Care Author Type: Physician Type: Progress Notes Filed: 02/02/2023 2:32 PM Note Text: [facility] STAFF PHYSICIAN NOTE OF PERSONAL INVOLVEMENT IN [...] of care, medical plan for the day, medical device sales consultant recommendations, medical disposition and current medical [...] Diana MD [facility] DATE of SERVICE: 02/02/2023[facility]06-08-2023 NoteHNO ID: [id number] Author: Alex Mccray MD Service: Hospital Medicine Author Type: Physician Type: Progress Notes Filed: 02/02/2023 9:37 AM Note Text: INPATIENT PROGRESS NOTE SERVICE DATE: 02/02/2023 SERVICE TIME: 9:03 AM SUBJECTIVE: CHIEF COMPLAINT: Nausea, vomiting, abdominal pain INTERVAL HPI: Patient seen and examined. Patient is 27-year-old female with history of diabetes, gastroparesis, follows with observatory director at [facility] who presented for abdominal [...] bilaterally.] SKIN: [Clear, no evidence of bleeding.] FOREST OFFICER: [Patient awake, alert, oriented ?3. No [...] with history of diabetes, gastroparesis, follows with observatory director at [facility] who presented for abdominal pain, nausea, vomiting for 1 day and on evaluation she was thought to have gastroparesis episode for which s (more content not included)...[facility]06-07-2023 NoteHNO ID: [id number] Author: Alex Mccray MD Service: Hospital Medicine Author Type: Physician Type: Progress Notes Filed: 02/02/2023 8:24 AM Note Text: INPATIENT PROGRESS NOTE SERVICE DATE: 02/01/2023 SERVICE TIME: 11:38 AM SUBJECTIVE: CHIEF COMPLAINT: Nausea, vomiting, abdominal pain INTERVAL HPI: Patient seen and examined. Patient is 27-year-old female with history of diabetes, gastroparesis, follows with observatory director at [facility] who presented for abdominal [...] bilaterally.] SKIN: [Clear, no evidence of bleeding.] FOREST OFFICER: [Patient awake, alert, oriented ?3. No [...] bowel. Consider CT if concern remains high. Masonry Teacher: CONCHITA Transcribe Date/Time: Jan 31 2023 7:56P [...] QTC Calculation (Bazett) 463 ms Calculated P [place] 26 degrees Calculated R [place] 78 degrees Calculated T [place] 72 degrees Narrative NAME : KATHLEEN VILLA PID : [id number] : 1995 Gender : Female Race : ORD : [id number] Procedure Date : Jan 31 2023 19:42:30 Edit Date : Jan 31 2023 23:03:15 Diagnosis: Normal sinus rhythm Nonspecific T wave abnormality Abnormal ECG When compared with ECG of 29-MAR-2023 18:14, Nonspecific T wave abnormality now evident in Lateral leads QT has lengthened Confirmed by ANASTASIA CHENG MD ([id number]) on 01/31/2023 11:03:12 PM Test Reason : [...] has lengthened Confirmed by ANASTASIA CHENG MD ([id number]) on 01/31/2023 11:03:12 PM CBC + DIFF [...] 4.00 k/uL Monocytes % 4.7 % Abs [place] 0.73 <0.87 k/uL Eosinophils % 0.1 % Abs Eosin <0.03 <0.46 k/uL Basophils % 0.5 % Abs Baso 0.07 <0.11 k/uL (more content not included)...[facility]06-07-2023 Miscellaneous Notes * Telephone Encounter - Radha Mandel MA - 02/01/2023 10:36 AM EDT Spoke with patient and she voiced understanding. * Telephone Encounter - Radha Mandel MA - 02/01/2023 10:35 AM EDT ----- Message from Vivi Smith MD sent at 01/27/2023 8:53 AM EDT ----- Please call and notify patient no signs of UTI on urine culture documented in this encounterMercy [facility]05-31-2023 NoteHNO ID: [id number] Author: Radha Mandel MA Service: ? Author Type: Licensed Professional Counselor Type: Progress Notes Filed: 01/25/2023 1:01 PM Note Text: Patient here today to recollect urine as previous urine culture was contaminated. Patient concerned as that was her second collection with multiple bacteria. Urine collected, dipped, and sent out for culture.[facility]05-31-2023 History of Present illness Narrative* Autumn Valadez APRN.PRE PAROLE COUNSELING AIDE - 01/25/2023 1:30 PM EDT Images from [...] (BAQSIMI) 3 mg/actuation nasal spray Use 1 Richey in the nose as needed for low [...] Other maternal great grandma I reviewed the Licensed Professional Counselor's notes with this visit for vital signs, [...] office visit notes from today faxed to [facility] in order to receive her Guardian CGM. [...] hyperglycemia, with long-term current use of insulin ([facility]) (primary encounter diagnosis) (Z96.41) Insulin pump status [...] with FRIEDA Urena APRN.FRIEDA Endocrinology & Metabolism [place] Some elements in this note were copied from my last note and have been updated as appropriate and reflect medical decision making today. documented in this encounterMercy Health [facility] Center05-31-2023 History of Present illness Narrative* Radha Mandel MA - 01/25/2023 12:59 PM EDT Patient here today to recollect urine as previous urine culture was contaminated. Patient concernedas that was her second collection with multiple bacteria. Urine collected, dipped, and sent out forculture. documented in this encounterMercy Health [facility] Center05-31-2023 Miscellaneous Notes* Telephone Encounter - Radha Mandel [...] based on this specimen documented in this encounterMercy Health Springfield [facility] Medical Center05-30-2023 Miscellaneous Notes* Telephone Encounter - Vivi Smith MD - 01/24/2023 11:58 AM EDT Port Flush order in Outbox on RX paper as unable to write order in Epic * Telephone Encounter - Radha Mandel MA - 01/24/2023 11:37 AM EDT Yaima from [facility] called and they need an order for a port flush. Pleaseplace order and I will fax. documented in this encounterMercy Health Springfield [facility] Center05-26-2023 NoteHNO ID: [id number] Author: Nicolette Cox LPN Service: ? Author Type: LICENSED NURSE Type: Progress Notes Filed: 01/20/2023 3:16 PM Note Text: Gilda presents today for a 1 month follow up visit.Gilda continues to c/o abdominal pain that radiates to her back. She states she did not follow up with pain management.[facility]05-26-2023 NoteHNO ID: [id number] Author: Vivi Smith MD Service: ? Author [...] 200s/. She sees Endo next week. 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 Conjunctiva/sclera: Conjunc (more content not included)...[facility] 01-12-2023 NoteHNO ID: [id number] Author: Madonna Toro, DO Service: ? Author [...] fevers GI: No nausea, vomiting, or diarrhea CELEBRITY CHEF ENTREPRENEUR MEDIA PERSONALITY: Negative for abnormal vaginal bleeding, abnormal vaginal [...] 2 IG Call with results. Madonna Toro, [facility]05-18-2023 NoteHNO ID: [id number] Author: Faviola Engle MA Service: ? Author Type: Licensed Professional Counselor Type: Progress Notes Filed: 01/12/2023 1:32 PM Note Text: Pt was exposed to a std.[facility]05-16-2023 Miscellaneous Notes* Telephone Encounter - Dori Chapman RN - 01/10/2023 8:58 AM EDT I called pt - pt confirmed 1:00p on documented in this encounterMercy Health [facility] Center05-09-2023 Miscellaneous Notes* Telephone Encounter - Lucius Santillan [...] forwarded to: SILVINO Trujillo documented in this encounterMercy Health Springfield [facility] Center04-14-2023 Miscellaneous Notes* Telephone Encounter - Nicolette Cox [...] message for Dr. Johansen who is through [facility], GI doctor she previously seen. She states she was sent home with a prescription for hydrocodone #12 tablets. She is asking if you can continue to prescribe pain medication until she gets in with GI doctor. Please advise. She states she scheduled a follow up appt with you on 01/20/23 but wants to know if you want to seeher sooner. documented in this encounterMercy Health Springfield [facility] Medical Center04-13-2023 History of Present illness Narrative* Nicolette Cox [...] hyperglycemia, with long-term current use of insulin ([facility]); Insulin pump status blood sugar diagnostic (CONTOUR NEXT TEST STRIPS) test strip Use as instructed to check blood glucose 5 times daily. E10.65 Qty: 500 Strip Refills: 3 Associated Diagnoses:Type 1 diabetes mellitus with hyperglycemia, with long-term current use of insulin ([facility]); Insulin pump status BAQSIMI 3 mg Use 3 mg in the nose as needed for low blood sugar. <span hidden class=[email or web address]></span>May repeat after 15 minutes using a new device if there is no response. Qty: 2 Each Refills: 2 Associated Diagnoses:Type 1 diabetes mellitus with hyperglycemia, with long-term current use of insulin ([facility]); Insulin pump status glucose 16 g Take 16 g by mouth as needed. Qty: 100 tablet Refills: 11 Associated Diagnoses:Type 1 diabetes mellitus with hyperglycemia, with long-term current use of insulin ([facility] [place]); Insulin pump status insulin glargine (LANTUS SOLOSTAR, BASAGLAR KWIKPEN) 100 unit/mL (3 mL) Inject 43 Units subcutaneously as directed in the event of Insulin pump failure. Qty: 15 mL Refills: 1 Comments: Generic or brand: dispense product preferred by patient/insurance unless BRET flag is selected. Associated Diagnoses:Type 1 diabetes mellitus with hyperglycemia, with long-term current use of insulin ([facility]); Insulin pump status Acetone, Urine, Test (KETONE URINE TEST) Use as directed Qty: 100 Strip Refills: 5 Associated Diagnoses: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 ([facility]) hydrOXYzine HCl (ATARAX) 50 mg Take 50 mg by mouth every 6 hours as needed. FUTURE APPOINTMENTS: Follow Up with Gastroenterology: Ricci Burgess MD Discharge Information Row Name ED to Hosp-Admission (Current) from 11/23/2022 in [facility] Medical Follow-Up Appointment Specialty Primary Care Provider Provider Name Dr. Smith Address [address], [place] [address] Appointment Date 12/08/22 Appointment Time 1:45pm The [...] type 1 with gastroparesis: Patient follows with observatory director Dr. Leticia Hylton with several smart pill [...] tree and pancreatic region SIGNATURE: Kathleen Hicks APRN.PRE PAROLE COUNSELING AIDE PAST MEDICAL HISTORY Diagnosis Date Anxiety disorder [...] (BAQSIMI) 3 mg/actuation nasal spray Use 1 Richey in the nose as needed for low [...] pain is different Will refer down to [facility] ED for further evaulation Stable at the moment Unclear etiology On Insulin Pump. HBA1c 3 months ago was 7 Noted Stable Pain out of portion. Sent by private vehicle to rule out blood clot/mesenteric ischemia and furtheretiologies. Vivi Smith MD documented in this encounterMercy Health [facility]04-10-2023 Miscellaneous Notes* Telephone Encounter - Lsia Aguilar LPN - 12/05/2022 3:09 PM EDT Form faxed to [facility]. Lisa Aguilar LPN * Telephone Encounter - Autumn Valadez APRN.CNP - 12/05/2022 12:32 PM EDT Signed Autumn Valadez APRN.FRIEDA * Telephone Encounter - Lisa Aguilar LPN - 12/05/2022 10:04 AM EDT JOSE:08/16/2022 NOV: 12/07/2022 Called patient Verified she has new pump medtronic 770G and will be meeting with [facility] for education on newpump. Patient currently [...] PM EDT Form and documentation faxed to [facility]. Lisa Aguilar LPN * Telephone Encounter - Kvng Lewis MD - 11/08/2022 12:49 PM EDT Form signed. * Telephone Encounter - Florence Murillo RN - 11/07/2022 3:19 PM EDT Received form from [facility] Medical Form, 6 months of OV notes and CGM download on desk, please sign * Telephone Encounter - Lisa Aguilar LPN - 11/04/2022 11:15 AM EST Completed form faxed to [facility]. Lisa Aguilar LPN * Telephone Encounter - [...] date of : Yes Type of form: [facility] MEDICAL / CGM Form received via: Fax When form is completed, fax form to fax number provided.[phone] Form has been forwarded to: SILVINO Hayes Pss documented in this encounterMercy [facility]03-29-2023 History of Past illness Narrative* Problem Noted [...] 02/25/2014 morning - On fentanyl gtt per PROPAGATOR Plan: - PROPAGATOR team to round on patient and manage [...] arise --- Follows with Dr. Garcia at [facility] Plan: - Continuous monitoring - F/u PROPAGATOR recs GBS (group B Streptococcus carrier), +RV culture @ 22 wks 11/11/2013 04/16/2014 Hypertension in , antepartum 09/19/2013 01/08/2014 DVT prophylaxis 12/25/2012 09/04/2013 Overview: IPCs DISPOSITION AND FOLLOW-UP 12/25/20122013 Overview: Full code Retinal detachment 10/26/2012 12/25/2012 documented as of this encounter (statuses as of 12/09/2022) [facility]03-29-[facility] History of Past illness Narrative* Problem Noted [...] 02/25/2014 morning - On fentanyl gtt per PROPAGATOR Plan: - PROPAGATOR team to round on patient and manage [...] arise --- Follows with Dr. Garcia at [facility] Plan: - Continuous monitoring - F/u PROPAGATOR recs GBS (group B Streptococcus carrier), +RV culture @ 22 wks 11/11/2013 04/16/2014 Hypertension in , antepartum 09/19/2013 01/08/2014 DVT prophylaxis 12/25/2012 09/04/2013 Overview: IPCs DISPOSITION AND FOLLOW-UP 12/25/20122013 Overview: Full code Retinal detachment 10/26/2012 12/25/2012 documented as of this encounter (statuses as of 12/09/2022) [facility]03-29-[facility] History of Past illness Narrative* Problem Noted [...] 02/25/2014 morning - On fentanyl gtt per PROPAGATOR Plan: - PROPAGATOR team to round on patient and manage [...] arise --- Follows with Dr. Garcia at [facility] Plan: - Continuous monitoring - F/u PROPAGATOR recs GBS (group B Streptococcus carrier), +RV culture @ 22 wks 11/11/2013 04/16/2014 Hypertension in , antepartum 09/19/2013 01/08/2014 DVT prophylaxis 12/25/2012 09/04/2013 Overview: IPCs DISPOSITION AND FOLLOW-UP 12/25/20122013 Overview: Full code Retinal detachment 10/26/2012 12/25/2012 documented as of this encounter (statuses as of 01/03/2023) [facility] History of Past illness Narrative* Problem Noted [...] 02/25/2014 morning - On fentanyl gtt per PROPAGATOR Plan: - PROPAGATOR team to round on patient and manage [...] arise --- Follows with Dr. Garcia at [facility] Plan: - Continuous monitoring - F/u PROPAGATOR recs GBS (group B Streptococcus carrier), +RV culture @ 22 wks 11/11/2013 04/16/2014 Hypertension in , antepartum 09/19/2013 01/08/2014 DVT prophylaxis 12/25/2012 09/04/2013 Overview: IPCs DISPOSITION AND FOLLOW-UP 12/25/20122013 Overview: Full code Retinal detachment 10/26/2012 12/25/2012 documented as of this encounter (statuses as of 01/10/2023) [facility]03[facility] History of Past illness Narrative* Problem Noted [...] 02/25/2014 morning - On fentanyl gtt per PROPAGATOR Plan: - PROPAGATOR team to round on patient and manage [...] arise --- Follows with Dr. Garcia at [facility] Plan: - Continuous monitoring - F/u PROPAGATOR recs GBS (group B Streptococcus carrier), +RV culture @ 22 wks 11/11/2013 04/16/2014 Hypertension in , antepartum 09/19/2013 01/08/2014 DVT prophylaxis 12/25/2012 09/04/2013 Overview: IPCs DISPOSITION AND FOLLOW-UP 12/25/20122013 Overview: Full code Retinal detachment 10/26/2012 12/25/2012 documented as of this encounter (statuses as of 01/24/2023) [facility]03[facility] History of Past illness Narrative* Problem Noted [...] 02/25/2014 morning - On fentanyl gtt per PROPAGATOR Plan: - PROPAGATOR team to round on patient and manage [...] arise --- Follows with Dr. Garcia at [facility] Plan: - Continuous monitoring - F/u PROPAGATOR recs GBS (group B Streptococcus carrier), +RV culture @ 22 wks 11/11/2013 04/16/2014 Hypertension in , antepartum 09/19/2013 01/08/2014 DVT prophylaxis 12/25/2012 09/04/2013 Overview: IPCs DISPOSITION AND FOLLOW-UP 12/25/20122013 Overview: Full code Retinal detachment 10/26/2012 12/25/2012 documented as of this encounter (statuses as of 01/25/2023) [facility]03[facility] History of Past illness Narrative* Problem Noted [...] 02/25/2014 morning - On fentanyl gtt per PROPAGATOR Plan: - PROPAGATOR team to round on patient and manage [...] arise --- Follows with Dr. Garcia at [facility] Plan: - Continuous monitoring - F/u PROPAGATOR recs GBS (group B Streptococcus carrier), +RV culture @ 22 wks 11/11/2013 04/16/2014 Hypertension in , antepartum 09/19/2013 01/08/2014 DVT prophylaxis 12/25/2012 09/04/2013 Overview: IPCs DISPOSITION AND FOLLOW-UP 12/25/20122013 Overview: Full code Retinal detachment 10/26/2012 12/25/2012 documented as of this encounter (statuses as of 01/25/2023) [facility]03-29-[facility] History of Past illness Narrative* Problem Noted [...] 02/25/2014 morning - On fentanyl gtt per PROPAGATOR Plan: - PROPAGATOR team to round on patient and manage [...] arise --- Follows with Dr. Garcia at [facility] Plan: - Continuous monitoring - F/u PROPAGATOR recs GBS (group B Streptococcus carrier), +RV culture @ 22 wks 11/11/2013 04/16/2014 Hypertension in , antepartum 09/19/2013 01/08/2014 DVT prophylaxis 12/25/2012 09/04/2013 Overview: IPCs DISPOSITION AND FOLLOW-UP 12/25/20122013 Overview: Full code Retinal detachment 10/26/2012 12/25/2012 documented as of this encounter (statuses as of 01/25/2023) [facility]03-29-[facility] History of Past illness Narrative* Problem Noted [...] 02/25/2014 morning - On fentanyl gtt per PROPAGATOR Plan: - PROPAGATOR team to round on patient and manage [...] arise --- Follows with Dr. Garcia at [facility] Plan: - Continuous monitoring - F/u PROPAGATOR recs GBS (group B Streptococcus carrier), +RV culture @ 22 wks 11/11/2013 04/16/2014 Hypertension in , antepartum 09/19/2013 01/08/2014 DVT prophylaxis 12/25/2012 09/04/2013 Overview: IPCs DISPOSITION AND FOLLOW-UP 12/25/20122013 Overview: Full code Retinal detachment 10/26/2012 12/25/2012 documented as of this encounter (statuses as of 01/26/2023) [facility] History of Past illness Narrative* Problem Noted [...] 02/25/2014 morning - On fentanyl gtt per PROPAGATOR Plan: - PROPAGATOR team to round on patient and manage [...] arise --- Follows with Dr. Garcia at [facility] Plan: - Continuous monitoring - F/u PROPAGATOR recs GBS (group B Streptococcus carrier), +RV culture @ 22 wks 11/11/2013 04/16/2014 Hypertension in , antepartum 09/19/2013 01/08/2014 DVT prophylaxis 12/25/2012 09/04/2013 Overview: IPCs DISPOSITION AND FOLLOW-UP 12/25/20122013 Overview: Full code Retinal detachment 10/26/2012 12/25/2012 documented as of this encounter (statuses as of 01/26/2023) [facility] History of Past illness Narrative* Problem Noted [...] 02/25/2014 morning - On fentanyl gtt per PROPAGATOR Plan: - PROPAGATOR team to round on patient and manage [...] arise --- Follows with Dr. Garcia at [facility] Plan: - Continuous monitoring - F/u PROPAGATOR recs GBS (group B Streptococcus carrier), +RV culture @ 22 wks 11/11/2013 04/16/2014 Hypertension in , antepartum 09/19/2013 01/08/2014 DVT prophylaxis 12/25/2012 09/04/2013 Overview: IPCs DISPOSITION AND FOLLOW-UP 12/25/20122013 Overview: Full code Retinal detachment 10/26/2012 12/25/2012 documented as of this encounter (statuses as of 02/01/2023) [facility]03-13-[facility] History of Present illness Narrative* Abelardo La [...] (BAQSIMI) 3 mg/actuation nasal spray Use 1 Richey in the nose as needed for low [...] as needed Abelardo La documented in this encounterMercy [facility]03-09-2023 Miscellaneous Notes* Telephone Encounter - Florence Murillo [...] name: Dr Joshua Maria documented in this encounterMercy Health [facility]02-25-2023 History of Present illness Narrative* Mary Cha [...] (BAQSIMI) 3 mg/actuation nasal spray Use 1 Richey in the nose as needed for low [...] INTRAMUSCULAR SOLUTION Abelardo La documented in this encounterMercy Health [facility]02-07-2023 History of Present illness Narrative* Leesa Huddleston PA-C - 10/04/2022 2:00 PM EST DATE OF SERVICE: 10/04/2022 PATIENT NAME: Kathleen Villa : 1995 AGE: 27 y.o. CLINIC NUMBER: [id number] Visit type: Established patient Chief Complaint Patient [...] 2:01 PM REFERRING MD: documented in this encounterSAdena Health SystemNpaiiw07-05-3839 Miscellaneous Notes* Telephone Encounter - David De Jesus RN - 09/07/2022 4:16 PM EST Completed PA via [employer]. CaseId:[id number]; Status:Approved; Valid08/08/2022 - 09/07/2023; Patient notified. * [...] medtronic pump, if possible. documented in this encounterMercy Health [facility] Center12-22-2022 Miscellaneous Notes* Telephone Encounter - Lisa Aguilar LPN - 08/18/2022 3:37 PM EST Faxed completed form, last 2 Visit Progress Notes and pump upload to [facility] medical. Lisa Aguilar LPN * Telephone Encounter - Autumn Valadez APRN.PRE PAROLE COUNSELING AIDE - 08/18/2022 3:28 PM EST Formsigned Autumn [...] PM EST Forms received via fax from [facility] Medical for CGM and pump supplies. CCS [...] you, Lisa Aguilar LPN documented in this encounterMercy Health [facility] Center12-20-2022 History of Present illness Narrative* Autumn Valadez APRN.PRE PAROLE COUNSELING AIDE - 08/16/2022 2:45 PM EST Images from [...] (BAQSIMI) 3 mg/actuation nasal spray Use 1 Richey in the nose as needed for low [...] Other maternal great grandma I reviewed the Licensed Professional Counselor's notes with this visit for vital signs, current allergies, medications, electronic medical record, lab(s), outside lab(s), and or back office lab(s) results, historyof vaccinations, and chief complaints. I edited the information obtained, as required. HISTORY OF PRESENT ILLNESS Last endo office visit: 07/11/[address] Lewis New patient to me Kathleen Villa is [...] patient is currently taking Novolog insulin via Package Conciergetronic 630G insulin pump in manual mode at [...] hyperglycemia, with long-term current use of insulin ([facility]) (primary encounter diagnosis) (Z96.41) Insulin pump status [...] November with Dr. Lewis 6 mo with ok Autumn Valadez APRN.[facility] Endocrinology & Metabolism [place]ord documented in this encounterMercy Health Springfield [facility] Center11-14-2022 History of Present illness Narrative* Kvng Lewis MD - 07/11/2022 11:00 AM EST VIRTUAL VISIT DIABETES NOTE Reason for Consultation: DM Type 1 HISTORY OF PRESENT ILLNESS: Ms. Villa is a 26 year old female presenting here today for a follow up of DM Type 1. She would like to transfer to care Dr. Khoury Lives in [place] Type 1 dx age 14 ( 12 [...] due to convenient location She lives in [place]. Dr. Khoury was managing patient during her [...] mouth every 6 hours as needed. lancets (myCampusTutorsTOUCH DELStory of My Life LANCETS) 30 gauge 10 x daily DX [...] year old female [facility] DM1 Complicated patient with complex PMH [...] encourage patient to schedule appt with our MANAGER OF EMPLOYEE RELATIONS Autumn Valadez in the next 1-3 mos in person See me after 3 mos after h/o abnormal TSH I have place another order for TSH/ Free T4 and TPO AB Will also place another order for HGa1c as it is has been over 6mos Kvng Lewis MD I spent a total of 40 minutes on the date of the service which included [id number] patient care, completing clinical documentation, performing a [...] Yes Heat Intolerance?: Yes documented in this encounterMercy Health [facility] Medical Center11-09-2022 Miscellaneous Notes* Telephone Encounter - [...] the nurse. She can be reached at [phone] documented in this [facility]10-20-2022 Miscellaneous Notes* Telephone Encounter - Anahi Benito MA - 06/16/2022 9:29 AM EDT Received [employer] form and placed on physicians desk for review. Form faxed with confirmation. documented in this [facility]10-12-2022 Miscellaneous Notes* Telephone Encounter - David [...] fax form to fax number provided # [phone] Form has been forwarded to: SILVINO/nidia documented in this [facility]10-11-2022 History of Present illness Narrative* Phoebe Richter , PAIN MANAGEMENT NURSE PRACTITIONER.PRE PAROLE COUNSELING AIDE - 06/07/2022 2:25 PM EDT Kathleen Villa [...] done swinging. RTC- 1 yr/prn Phoebe Mckeon APRN.PRE PAROLE COUNSELING AIDE documented in this encounterMercy Health Springfield [facility] Medical Center10-11-2022 Nurse Note* Alysha Petersen MA - 06/07/2022 2:11 PM EDT Pt is here today for JASON. Pt has no concerns at this time. documented in this encounterMercy Health Springfield [facility] Medical Center09-16-2022 Miscellaneous Notes* Telephone Encounter - Anahi Benito MA - 05/13/2022 12:23 PM EDT Received [employer] and [employer] forms for pump/cgm supplies. Patient next visit is in June and has not been seen since 08/24/2021. Let[employer] message sent to patient requesting pump upload. documented in this encounterMercy Health Springfield [facility] Medical Center09-15-2022 Nurse Note* Zohreh Rodarte LPN - 05/12/2022 10:15 AM EDT Pt given 2 doses of Rocephin 250 mg, total 500 mg in the left buttock. Pt tolerated injection well.BP 110/70. documented in this encounterMercy Health Springfield [facility] Medical Center09-15-2022 History of Present illness Narrative* Phoebe Mckeon APRN.CNP - 05/12/2022 9:34 AM EDT . documented in this encounterMercy Health Springfield [facility] Medical Center09-13-2022 Miscellaneous Notes* Telephone Encounter - Dori Chapman RN - 05/10/2022 1:38 PM EDT PT coming for injection on 05/12/22 at 9:30a advised to bring medication with her to appt. Pt voiced understanding. 4 week JASON scheduled * Telephone Encounter - Phoebe Mckeon APRN.CNP - 05/10/2022 11:34 AM EDT Please notify pt that she is + for Gonorrhea. She will rneny to come in for an injection. I [...] Thanks Phoebe Mckeon APRN.CNP documented in this encounterMercy Health Springfield [facility] Medical Center09-07-2022 Miscellaneous Notes* Telephone Encounter - [...] for insulin aspart U-100 documented in this encounterMercy Health Springfield [facility] Medical Center09-06-2022 Miscellaneous Notes* Telephone Encounter - Darnell Vera RN - 05/03/2022 11:49 AM EDT Pended - please file if appropriate. documented in this encounterMercy Health Springfield [facility] Medical Center09-06-2022 Miscellaneous Notes* Telephone Encounter - [...] scheduled appointment Yes documented in this encounterCleveland [id number] Instructions* Patient Instructions* Dashawn Cain APRN.CNP - 04/18/2022 8:39 AM EDT Labs ordered- urine tests. Have done at Urgent care or main hospital. We will call with results. Referral placed to [facility]RE[facility] MEDIA PERSONAL[facility] clinic at [facility]. This should get in contact with you within the next couple weeks if not you may call central scheduling at [phone] to inquire about your appointment. documented in this encounterMercy Health Springfield Regional Medical Center08-22-2022 History of Present illness Narrative* Dashawn Cain APRN.CNP - 04/18/2022 8:22 AM EDT This note was created using [employer]. Subjective Kathleen Villa is a 26 year [...] apparently. She does not have a current PROPAGATOR. Her previous [facility] ENTREPRENEUR MEDIA PERSONALITY is Dr. Kristin Garcia at [facility]. She had noticed some [...] TABLET This note was partially generated using [employer]ura voice recognition system. Dashawn Cain APRN.PRE PAROLE COUNSELING AIDE documented in this encounterMercy Health Springfield Regional Medical Center07-15-2022 History of Present illness Narrative* Teressa Mckoy RN - 03/11/2022 1:10 PM EDT 2mg/2ml Activase instilled in port at 1207. Blood return obtained at 1255. 10ml withdrawn and discarded. Port flushed with saline and heparin per protocol. documented in this [facility]07-11-2022 History of Present illness Narrative* Teressa Mckoy RN - 03/07/2022 4:38 PM EDT Unable to obtain blood return. Will notify ordering practitioner for Activase order. Patient reports unable to stay today. Will return Monday03/11/22. documented in this encounterMercy Health Springfield [facility] Medical Center06-07-2022 [facility]05-06-2022 Miscellaneous Notes* Telephone Encounter - Anahi Haywood MA - 12/31/2021 11:44 AM EDT Received [facility] Medical request for most recent office notes and CGM data. Office notes printed for physicians signature. Called patient on mobile number and advised if she can upload her pump. Patient stated she is not at home and will upload as soon as she can. Advised patient no problem and she cansend [employer] message once upload is completed. Patient voiced understanding. documented in this encounterMercy Health Springfield Regional Medical Center05-05-2022 [facility]05-03-2022 Evaluation + Plan note Diagnostic Tests Pending * Complete Metabolic Panel 12/28/21 * Lipase Level 12/28/21 [facility] 04-30-2022 [facility]04-30-2022 Miscellaneous Notes* Telephone Encounter - Velia Kaur MD - 12/25/2021 12:42 PM EDT 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 She is out of infusion sets for [...] she has any difficulties. documented in this encounterMercy Health Springfield [facility] Medical Center04-11-2022 Miscellaneous Notes* Telephone Encounter - Loretta Brown Ma - 12/06/2021 9:00 AM EDT received a fax from [employer] Patient has been approved for insulin aspart U-100 (NOVOLOG U-100 INSULIN ASPART) 100 unit/mL from 11/02/2021 to 12/04/2022 No further action is needed documented in this encounterMercy Health Springfield [facility] Medical Center02-28-2022 [facility]02-25-2022 [facility]02-15-2022 Miscellaneous Notes* Telephone Encounter - Jess Guardado - 10/12/2021 10:25 AM EST Left VM for patient to call office to offer sooner apt with JOCELYNE Mcdonald. documented in this encounterMercy Health Springfield Regional Medical Center10-09-2021 [facility]06-02-2016 History of Past illness Narrative* Problem [...] 02/25/2014 morning - On fentanyl gtt per PROPAGATOR Plan: - PROPAGATOR team to round on patient and manage [...] arise --- Follows with Dr. Garcia at [facility] Plan: - Continuous monitoring - F/u PROPAGATOR recs GBS (group B Streptococcus carrier), +RV culture @ 22 wks 11/11/2013 04/16/2014 Hypertension in , antepartum 09/19/2013 01/08/2014 DVT prophylaxis 12/25/2012 09/04/2013 Overview: IPCs DISPOSITION AND FOLLOW-UP 12/25/20122013 Overview: Full code Retinal detachment 10/26/2012 12/25/2012 documented as of this encounter (statuses as of 11/26/2021) [facility] History of Past illness Narrative* Problem Noted [...] 02/25/2014 morning - On fentanyl gtt per PROPAGATOR Plan: - PROPAGATOR team to round on patient and manage [...] arise --- Follows with Dr. Garcia at [facility] Plan: - Continuous monitoring - F/u PROPAGATOR recs GBS (group B Streptococcus carrier), +RV culture @ 22 wks 11/11/2013 04/16/2014 Hypertension in , antepartum 09/19/2013 01/08/2014 DVT prophylaxis 12/25/2012 09/04/2013 Overview: IPCs DISPOSITION AND FOLLOW-UP 12/25/20122013 Overview: Full code Retinal detachment 10/26/2012 12/25/2012 documented as of this encounter (statuses as of 11/27/2021) [facility] History of Past illness Narrative* Problem Noted [...] 02/25/2014 morning - On fentanyl gtt per PROPAGATOR Plan: - PROPAGATOR team to round on patient and manage [...] arise --- Follows with Dr. Garcia at [facility] Plan: - Continuous monitoring - F/u PROPAGATOR recs GBS (group B Streptococcus carrier), +RV culture @ 22 wks 11/11/2013 04/16/2014 Hypertension in , antepartum 09/19/2013 01/08/2014 DVT prophylaxis 12/25/2012 09/04/2013 Overview: IPCs DISPOSITION AND FOLLOW-UP 12/25/20122013 Overview: Full code Retinal detachment 10/26/2012 12/25/2012 documented as of this encounter (statuses as of 12/06/2021) [facility] History of Past illness Narrative* Problem Noted [...] 02/25/2014 morning - On fentanyl gtt per PROPAGATOR Plan: - PROPAGATOR team to round on patient and manage [...] arise --- Follows with Dr. Garcia at [facility] Plan: - Continuous monitoring - F/u PROPAGATOR recs GBS (group B Streptococcus carrier), +RV culture @ 22 wks 11/11/2013 04/16/2014 Hypertension in , antepartum 09/19/2013 01/08/2014 DVT prophylaxis 12/25/2012 09/04/2013 Overview: IPCs DISPOSITION AND FOLLOW-UP 12/25/20122013 Overview: Full code Retinal detachment 10/26/2012 12/25/2012 documented as of this encounter (statuses as of 12/26/2021) [facility]06-[facility]2016 History of Past illness Narrative* Problem Noted [...] 02/25/2014 morning - On fentanyl gtt per PROPAGATOR Plan: - PROPAGATOR team to round on patient and manage [...] arise --- Follows with Dr. Garcia at [facility] Plan: - Continuous monitoring - F/u PROPAGATOR recs GBS (group B Streptococcus carrier), +RV culture @ 22 wks 11/11/2013 04/16/2014 Hypertension in , antepartum 09/19/2013 01/08/2014 DVT prophylaxis 12/25/2012 09/04/2013 Overview: IPCs DISPOSITION AND FOLLOW-UP 12/25/20122013 Overview: Full code Retinal detachment 10/26/2012 12/25/2012 documented as of this encounter (statuses as of 12/27/2021) [facility] History of Past illness Narrative* Problem Noted [...] 02/25/2014 morning - On fentanyl gtt per PROPAGATOR Plan: - PROPAGATOR team to round on patient and manage [...] arise --- Follows with Dr. Garcia at [facility] Plan: - Continuous monitoring - F/u PROPAGATOR recs GBS (group B Streptococcus carrier), +RV culture @ 22 wks 11/11/2013 04/16/2014 Hypertension in , antepartum 09/19/2013 01/08/2014 DVT prophylaxis 12/25/2012 09/04/2013 Overview: IPCs DISPOSITION AND FOLLOW-UP 12/25/20122013 Overview: Full code Retinal detachment 10/26/2012 12/25/2012 documented as of this encounter (statuses as of 12/29/2021) [facility] History of Past illness Narrative* Problem Noted [...] 02/25/2014 morning - On fentanyl gtt per PROPAGATOR Plan: - PROPAGATOR team to round on patient and manage [...] arise --- Follows with Dr. Garcia at [facility] Plan: - Continuous monitoring - F/u PROPAGATOR recs GBS (group B Streptococcus carrier), +RV culture @ 22 wks 11/11/2013 04/16/2014 Hypertension in , antepartum 09/19/2013 01/08/2014 DVT prophylaxis 12/25/2012 09/04/2013 Overview: IPCs DISPOSITION AND FOLLOW-UP 12/25/20122013 Overview: Full code Retinal detachment 10/26/2012 12/25/2012 documented as of this encounter (statuses as of 01/28/2022) [facility] History of Past illness Narrative* Problem Noted [...] 02/25/2014 morning - On fentanyl gtt per PROPAGATOR Plan: - PROPAGATOR team to round on patient and manage [...] arise --- Follows with Dr. Garcia at [facility] Plan: - Continuous monitoring - F/u PROPAGATOR recs GBS (group B Streptococcus carrier), +RV culture @ 22 wks 11/11/2013 04/16/2014 Hypertension in , antepartum 09/19/2013 01/08/2014 DVT prophylaxis 12/25/2012 09/04/2013 Overview: IPCs DISPOSITION AND FOLLOW-UP 12/25/20122013 Overview: Full code Retinal detachment 10/26/2012 12/25/2012 documented as of this encounter (statuses as of 01/30/2022) [facility] History of Past illness Narrative* Problem Noted [...] 02/25/2014 morning - On fentanyl gtt per PROPAGATOR Plan: - PROPAGATOR team to round on patient and manage [...] arise --- Follows with Dr. Garcia at [facility] Plan: - Continuous monitoring - F/u PROPAGATOR recs GBS (group B Streptococcus carrier), +RV culture @ 22 wks 11/11/2013 04/16/2014 Hypertension in , antepartum 09/19/2013 01/08/2014 DVT prophylaxis 12/25/2012 09/04/2013 Overview: IPCs DISPOSITION AND FOLLOW-UP 12/25/20122013 Overview: Full code Retinal detachment 10/26/2012 12/25/2012 documented as of this encounter (statuses as of 02/24/2022) [facility] History of Past illness Narrative* Problem Noted [...] 02/25/2014 morning - On fentanyl gtt per PROPAGATOR Plan: - PROPAGATOR team to round on patient and manage [...] arise --- Follows with Dr. Garcia at [facility] Plan: - Continuous monitoring - F/u PROPAGATOR recs GBS (group B Streptococcus carrier), +RV culture @ 22 wks 11/11/2013 04/16/2014 Hypertension in , antepartum 09/19/2013 01/08/2014 DVT prophylaxis 12/25/2012 09/04/2013 Overview: IPCs DISPOSITION AND FOLLOW-UP 12/25/20122013 Overview: Full code Retinal detachment 10/26/2012 12/25/2012 documented as of this encounter (statuses as of 03/01/2022) [facility] History of Past illness Narrative* Problem Noted [...] 02/25/2014 morning - On fentanyl gtt per PROPAGATOR Plan: - PROPAGATOR team to round on patient and manage [...] arise --- Follows with Dr. Garcia at [facility] Plan: - Continuous monitoring - F/u PROPAGATOR recs GBS (group B Streptococcus carrier), +RV culture @ 22 wks 11/11/2013 04/16/2014 Hypertension in , antepartum 09/19/2013 01/08/2014 DVT prophylaxis 12/25/2012 09/04/2013 Overview: IPCs DISPOSITION AND FOLLOW-UP 12/25/20122013 Overview: Full code Retinal detachment 10/26/2012 12/25/2012 documented as of this encounter (statuses as of 03/07/2022) [facility] History of Past illness Narrative* Problem Noted [...] 02/25/2014 morning - On fentanyl gtt per PROPAGATOR Plan: - PROPAGATOR team to round on patient and manage [...] arise --- Follows with Dr. Garcia at [facility] Plan: - Continuous monitoring - F/u PROPAGATOR recs GBS (group B Streptococcus carrier), +RV culture @ 22 wks 11/11/2013 04/16/2014 Hypertension in , antepartum 09/19/2013 01/08/2014 DVT prophylaxis 12/25/2012 09/04/2013 Overview: IPCs DISPOSITION AND FOLLOW-UP 12/25/20122013 Overview: Full code Retinal detachment 10/26/2012 12/25/2012 documented as of this encounter (statuses as of 03/10/2022) [facility] History of Past illness Narrative* Problem Noted [...] 02/25/2014 morning - On fentanyl gtt per PROPAGATOR Plan: - PROPAGATOR team to round on patient and manage [...] arise --- Follows with Dr. Garcia at [facility] Plan: - Continuous monitoring - F/u PROPAGATOR recs GBS (group B Streptococcus carrier), +RV culture @ 22 wks 11/11/2013 04/16/2014 Hypertension in , antepartum 09/19/2013 01/08/2014 DVT prophylaxis 12/25/2012 09/04/2013 Overview: IPCs DISPOSITION AND FOLLOW-UP 12/25/20122013 Overview: Full code Retinal detachment 10/26/2012 12/25/2012 documented as of this encounter (statuses as of 03/11/2022) [facility] History of Past illness Narrative* Problem Noted [...] 02/25/2014 morning - On fentanyl gtt per PROPAGATOR Plan: - PROPAGATOR team to round on patient and manage [...] arise --- Follows with Dr. Garcia at [facility] Plan: - Continuous monitoring - F/u PROPAGATOR recs GBS (group B Streptococcus carrier), +RV culture @ 22 wks 11/11/2013 04/16/2014 Hypertension in , antepartum 09/19/2013 01/08/2014 DVT prophylaxis 12/25/2012 09/04/2013 Overview: IPCs DISPOSITION AND FOLLOW-UP 12/25/20122013 Overview: Full code Retinal detachment 10/26/2012 12/25/2012 documented as of this encounter (statuses as of 04/18/2022) [facility] History of Past illness Narrative* Problem Noted [...] 02/25/2014 morning - On fentanyl gtt per PROPAGATOR Plan: - PROPAGATOR team to round on patient and manage [...] arise --- Follows with Dr. Garcia at [facility] Plan: - Continuous monitoring - F/u PROPAGATOR recs GBS (group B Streptococcus carrier), +RV culture @ 22 wks 11/11/2013 04/16/2014 Hypertension in , antepartum 09/19/2013 01/08/2014 DVT prophylaxis 12/25/2012 09/04/2013 Overview: IPCs DISPOSITION AND FOLLOW-UP 12/25/20122013 Overview: Full code Retinal detachment 10/26/2012 12/25/2012 documented as of this encounter (statuses as of 05/03/2022) [facility] History of Past illness Narrative* Problem Noted [...] 02/25/2014 morning - On fentanyl gtt per PROPAGATOR Plan: - PROPAGATOR team to round on patient and manage [...] arise --- Follows with Dr. Garcia at [facility] Plan: - Continuous monitoring - F/u PROPAGATOR recs GBS (group B Streptococcus carrier), +RV culture @ 22 wks 11/11/2013 04/16/2014 Hypertension in , antepartum 09/19/2013 01/08/2014 DVT prophylaxis 12/25/2012 09/04/2013 Overview: IPCs DISPOSITION AND FOLLOW-UP 12/25/20122013 Overview: Full code Retinal detachment 10/26/2012 12/25/2012 documented as of this encounter (statuses as of 05/03/2022) [facility] History of Past illness Narrative* Problem Noted [...] 02/25/2014 morning - On fentanyl gtt per PROPAGATOR Plan: - PROPAGATOR team to round on patient and manage [...] arise --- Follows with Dr. Garcia at [facility] Plan: - Continuous monitoring - F/u PROPAGATOR recs GBS (group B Streptococcus carrier), +RV culture @ 22 wks 11/11/2013 04/16/2014 Hypertension in , antepartum 09/19/2013 01/08/2014 DVT prophylaxis 12/25/2012 09/04/2013 Overview: IPCs DISPOSITION AND FOLLOW-UP 12/25/20122013 Overview: Full code Retinal detachment 10/26/2012 12/25/2012 documented as of this encounter (statuses as of 05/04/2022) [facility] History of Past illness Narrative* Problem Noted [...] 02/25/2014 morning - On fentanyl gtt per PROPAGATOR Plan: - PROPAGATOR team to round on patient and manage [...] arise --- Follows with Dr. Garcia at [facility] Plan: - Continuous monitoring - F/u PROPAGATOR recs GBS (group B Streptococcus carrier), +RV culture @ 22 wks 11/11/2013 04/16/2014 Hypertension in , antepartum 09/19/2013 01/08/2014 DVT prophylaxis 12/25/2012 09/04/2013 Overview: IPCs DISPOSITION AND FOLLOW-UP 12/25/20122013 Overview: Full code Retinal detachment 10/26/2012 12/25/2012 documented as of this encounter (statuses as of 05/10/2022) [facility] History of Past illness Narrative* Problem Noted [...] 02/25/2014 morning - On fentanyl gtt per PROPAGATOR Plan: - PROPAGATOR team to round on patient and manage [...] arise --- Follows with Dr. Garcia at [facility] Plan: - Continuous monitoring - F/u PROPAGATOR recs GBS (group B Streptococcus carrier), +RV culture @ 22 wks 11/11/2013 04/16/2014 Hypertension in , antepartum 09/19/2013 01/08/2014 DVT prophylaxis 12/25/2012 09/04/2013 Overview: IPCs DISPOSITION AND FOLLOW-UP 12/25/20122013 Overview: Full code Retinal detachment 10/26/2012 12/25/2012 documented as of this encounter (statuses as of 05/11/2022) [facility] History of Past illness Narrative* Problem Noted [...] 02/25/2014 morning - On fentanyl gtt per PROPAGATOR Plan: - PROPAGATOR team to round on patient and manage [...] arise --- Follows with Dr. Garcia at [facility] Plan: - Continuous monitoring - F/u PROPAGATOR recs GBS (group B Streptococcus carrier), +RV culture @ 22 wks 11/11/2013 04/16/2014 Hypertension in , antepartum 09/19/2013 01/08/2014 DVT prophylaxis 12/25/2012 09/04/2013 Overview: IPCs DISPOSITION AND FOLLOW-UP 12/25/20122013 Overview: Full code Retinal detachment 10/26/2012 12/25/2012 documented as of this encounter (statuses as of 05/12/2022) [facility] History of Past illness Narrative* Problem Noted [...] 02/25/2014 morning - On fentanyl gtt per PROPAGATOR Plan: - PROPAGATOR team to round on patient and manage [...] arise --- Follows with Dr. Garcia at [facility] Plan: - Continuous monitoring - F/u PROPAGATOR recs GBS (group B Streptococcus carrier), +RV culture @ 22 wks 11/11/2013 04/16/2014 Hypertension in , antepartum 09/19/2013 01/08/2014 DVT prophylaxis 12/25/2012 09/04/2013 Overview: IPCs DISPOSITION AND FOLLOW-UP 12/25/20122013 Overview: Full code Retinal detachment 10/26/2012 12/25/2012 documented as of this encounter (statuses as of 05/13/2022) [facility] History of Past illness Narrative* Problem Noted [...] 02/25/2014 morning - On fentanyl gtt per PROPAGATOR Plan: - PROPAGATOR team to round on patient and manage [...] arise --- Follows with Dr. Garcia at [facility] Plan: - Continuous monitoring - F/u PROPAGATOR recs GBS (group B Streptococcus carrier), +RV culture @ 22 wks 11/11/2013 04/16/2014 Hypertension in , antepartum 09/19/2013 01/08/2014 DVT prophylaxis 12/25/2012 09/04/2013 Overview: IPCs DISPOSITION AND FOLLOW-UP 12/25/20122013 Overview: Full code Retinal detachment 10/26/2012 12/25/2012 documented as of this encounter (statuses as of 05/30/2022) [facility] History of Past illness Narrative* Problem Noted [...] 02/25/2014 morning - On fentanyl gtt per PROPAGATOR Plan: - PROPAGATOR team to round on patient and manage [...] arise --- Follows with Dr. Garcia at [facility] Plan: - Continuous monitoring - F/u PROPAGATOR recs GBS (group B Streptococcus carrier), +RV culture @ 22 wks 11/11/2013 04/16/2014 Hypertension in , antepartum 09/19/2013 01/08/2014 DVT prophylaxis 12/25/2012 09/04/2013 Overview: IPCs DISPOSITION AND FOLLOW-UP 12/25/20122013 Overview: Full code Retinal detachment 10/26/2012 12/25/2012 documented as of this encounter (statuses as of 06/07/2022) [facility] History of Past illness Narrative* Problem Noted [...] 02/25/2014 morning - On fentanyl gtt per PROPAGATOR Plan: - PROPAGATOR team to round on patient and manage [...] arise --- Follows with Dr. Garcia at [facility] Plan: - Continuous monitoring - F/u PROPAGATOR recs GBS (group B Streptococcus carrier), +RV culture @ 22 wks 11/11/2013 04/16/2014 Hypertension in , antepartum 09/19/2013 01/08/2014 DVT prophylaxis 12/25/2012 09/04/2013 Overview: IPCs DISPOSITION AND FOLLOW-UP 12/25/20122013 Overview: Full code Retinal detachment 10/26/2012 12/25/2012 documented as of this encounter (statuses as of 06/08/2022) [facility] History of Past illness Narrative* Problem Noted [...] 02/25/2014 morning - On fentanyl gtt per PROPAGATOR Plan: - PROPAGATOR team to round on patient and manage [...] arise --- Follows with Dr. Garcia at [facility] Plan: - Continuous monitoring - F/u PROPAGATOR recs GBS (group B Streptococcus carrier), +RV culture @ 22 wks 11/11/2013 04/16/2014 Hypertension in , antepartum 09/19/2013 01/08/2014 DVT prophylaxis 12/25/2012 09/04/2013 Overview: IPCs DISPOSITION AND FOLLOW-UP 12/25/20122013 Overview: Full code Retinal detachment 10/26/2012 12/25/2012 documented as of this encounter (statuses as of 06/16/2022) [facility] History of Past illness Narrative* Problem Noted [...] 02/25/2014 morning - On fentanyl gtt per PROPAGATOR Plan: - PROPAGATOR team to round on patient and manage [...] arise --- Follows with Dr. Garcia at [facility] Plan: - Continuous monitoring - F/u PROPAGATOR recs GBS (group B Streptococcus carrier), +RV culture @ 22 wks 11/11/2013 04/16/2014 Hypertension in , antepartum 09/19/2013 01/08/2014 DVT prophylaxis 12/25/2012 09/04/2013 Overview: IPCs DISPOSITION AND FOLLOW-UP 12/25/20122013 Overview: Full code Retinal detachment 10/26/2012 12/25/2012 documented as of this encounter (statuses as of 07/12/2022) [facility] History of Past illness Narrative* Problem Noted [...] 02/25/2014 morning - On fentanyl gtt per PROPAGATOR Plan: - PROPAGATOR team to round on patient and manage [...] arise --- Follows with Dr. Garcia at [facility] Plan: - Continuous monitoring - F/u PROPAGATOR recs GBS (group B Streptococcus carrier), +RV culture @ 22 wks 11/11/2013 04/16/2014 Hypertension in , antepartum 09/19/2013 01/08/2014 DVT prophylaxis 12/25/2012 09/04/2013 Overview: IPCs DISPOSITION AND FOLLOW-UP 12/25/20122013 Overview: Full code Retinal detachment 10/26/2012 12/25/2012 documented as of this encounter (statuses as of 07/25/2022) [facility] History of Past illness Narrative* Problem Noted [...] 02/25/2014 morning - On fentanyl gtt per PROPAGATOR Plan: - PROPAGATOR team to round on patient and manage [...] arise --- Follows with Dr. Garcia at [facility] Plan: - Continuous monitoring - F/u PROPAGATOR recs GBS (group B Streptococcus carrier), +RV culture @ 22 wks 11/11/2013 04/16/2014 Hypertension in , antepartum 09/19/2013 01/08/2014 DVT prophylaxis 12/25/2012 09/04/2013 Overview: IPCs DISPOSITION AND FOLLOW-UP 12/25/20122013 Overview: Full code Retinal detachment 10/26/2012 12/25/2012 documented as of this encounter (statuses as of 08/05/2022) [facility] History of Past illness Narrative* Problem Noted [...] 02/25/2014 morning - On fentanyl gtt per PROPAGATOR Plan: - PROPAGATOR team to round on patient and manage [...] arise --- Follows with Dr. Garcia at [facility] Plan: - Continuous monitoring - F/u PROPAGATOR recs GBS (group B Streptococcus carrier), +RV culture @ 22 wks 11/11/2013 04/16/2014 Hypertension in , antepartum 09/19/2013 01/08/2014 DVT prophylaxis 12/25/2012 09/04/2013 Overview: IPCs DISPOSITION AND FOLLOW-UP 12/25/20122013 Overview: Full code Retinal detachment 10/26/2012 12/25/2012 documented as of this encounter (statuses as of 08/16/2022) [facility] History of Past illness Narrative* Problem Noted [...] 02/25/2014 morning - On fentanyl gtt per PROPAGATOR Plan: - PROPAGATOR team to round on patient and manage [...] arise --- Follows with Dr. Garcia at [facility] Plan: - Continuous monitoring - F/u PROPAGATOR recs GBS (group B Streptococcus carrier), +RV culture @ 22 wks 11/11/2013 04/16/2014 Hypertension in , antepartum 09/19/2013 01/08/2014 DVT prophylaxis 12/25/2012 09/04/2013 Overview: IPCs DISPOSITION AND FOLLOW-UP 12/25/20122013 Overview: Full code Retinal detachment 10/26/2012 12/25/2012 documented as of this encounter (statuses as of 09/02/2022) [facility] History of Past illness Narrative* Problem Noted [...] 02/25/2014 morning - On fentanyl gtt per PROPAGATOR Plan: - PROPAGATOR team to round on patient and manage [...] arise --- Follows with Dr. Garcia at [facility] Plan: - Continuous monitoring - F/u PROPAGATOR recs GBS (group B Streptococcus carrier), +RV culture @ 22 wks 11/11/2013 04/16/2014 Hypertension in , antepartum 09/19/2013 01/08/2014 DVT prophylaxis 12/25/2012 09/04/2013 Overview: IPCs DISPOSITION AND FOLLOW-UP 12/25/20122013 Overview: Full code Retinal detachment 10/26/2012 12/25/2012 documented as of this encounter (statuses as of 09/07/2022) [facility] History of Past illness Narrative* Problem Noted [...] 02/25/2014 morning - On fentanyl gtt per PROPAGATOR Plan: - PROPAGATOR team to round on patient and manage [...] arise --- Follows with Dr. Garcia at [facility] Plan: - Continuous monitoring - F/u PROPAGATOR recs GBS (group B Streptococcus carrier), +RV culture @ 22 wks 11/11/2013 04/16/2014 Hypertension in , antepartum 09/19/2013 01/08/2014 DVT prophylaxis 12/25/2012 09/04/2013 Overview: IPCs DISPOSITION AND FOLLOW-UP 12/25/20122013 Overview: Full code Retinal detachment 10/26/2012 12/25/2012 documented as of this encounter (statuses as of 09/20/2022) [facility] History of Past illness Narrative* Problem Noted [...] 02/25/2014 morning - On fentanyl gtt per PROPAGATOR Plan: - PROPAGATOR team to round on patient and manage [...] arise --- Follows with Dr. Garcia at [facility] Plan: - Continuous monitoring - F/u PROPAGATOR recs GBS (group B Streptococcus carrier), +RV culture @ 22 wks 11/11/2013 04/16/2014 Hypertension in , antepartum 09/19/2013 01/08/2014 DVT prophylaxis 12/25/2012 09/04/2013 Overview: IPCs DISPOSITION AND FOLLOW-UP 12/25/20122013 Overview: Full code Retinal detachment 10/26/2012 12/25/2012 documented as of this encounter (statuses as of 10/22/2022) [facility] History of Past illness Narrative* Problem Noted [...] 02/25/2014 morning - On fentanyl gtt per PROPAGATOR Plan: - PROPAGATOR team to round on patient and manage [...] arise --- Follows with Dr. Garcia at [facility] Plan: - Continuous monitoring - F/u PROPAGATOR recs GBS (group B Streptococcus carrier), +RV culture @ 22 wks 11/11/2013 04/16/2014 Hypertension in , antepartum 09/19/2013 01/08/2014 DVT prophylaxis 12/25/2012 09/04/2013 Overview: IPCs DISPOSITION AND FOLLOW-UP 12/25/20122013 Overview: Full code Retinal detachment 10/26/2012 12/25/2012 documented as of this encounter (statuses as of 11/03/2022) [facility] History of Past illness Narrative* Problem Noted [...] 02/25/2014 morning - On fentanyl gtt per PROPAGATOR Plan: - PROPAGATOR team to round on patient and manage [...] arise --- Follows with Dr. Garcia at [facility] Plan: - Continuous monitoring - F/u PROPAGATOR recs GBS (group B Streptococcus carrier), +RV culture @ 22 wks 11/11/2013 04/16/2014 Hypertension in , antepartum 09/19/2013 01/08/2014 DVT prophylaxis 12/25/2012 09/04/2013 Overview: IPCs DISPOSITION AND FOLLOW-UP 12/25/20122013 Overview: Full code Retinal detachment 10/26/2012 12/25/2012 documented as of this encounter (statuses as of 11/07/2022) [facility] History of Past illness Narrative* Problem Noted [...] 02/25/2014 morning - On fentanyl gtt per PROPAGATOR Plan: - PROPAGATOR team to round on patient and manage care Diabetic ketoacidosis withou t coma associated with type 1 diabetes mellitus 01/08/2014 02/04/2023 Overview: Type 1 diabetes with poor control, frequent DKA episodes --- Throughout the day she takes insulin to keep sugars 80-150 - Presented to [facility] on 01/08/2014 with sub-sternal chest pain [...] arise --- Follows with Dr. Garcia at [facility] Plan: - Continuous monitoring - F/u PROPAGATOR recs GBS (group B Streptococcus carrier), +RV culture @ 22 wks 11/11/2013 04/16/2014 Hypertension in , antepartum 09/19/2013 01/08/2014 DVT prophylaxis 12/25/2012 09/04/2013 Overview: IPCs DISPOSITION AND FOLLOW-UP 12/25/20122013 Overview: Full code Retinal detachment 10/26/2012 12/25/2012 documented as of this encounter (statuses as of 02/08/2023) [facility] History of Past illness Narrative* Problem Noted [...] 02/25/2014 morning - On fentanyl gtt per PROPAGATOR Plan: - PROPAGATOR team to round on patient and manage care Diabetic ketoacidosis withou t coma associated with type 1 diabetes mellitus 01/08/2014 02/04/2023 Overview: Type 1 diabetes with poor control, frequent DKA episodes --- Throughout the day she takes insulin to keep sugars 80-150 - Presented to [facility] on 01/08/2014 with sub-sternal chest pain [...] arise --- Follows with Dr. Garcia at [facility] Plan: - Continuous monitoring - F/u PROPAGATOR recs GBS (group B Streptococcus carrier), +RV culture @ 22 wks 11/11/2013 04/16/2014 Hypertension in , antepartum 09/19/2013 01/08/2014 DVT prophylaxis 12/25/2012 09/04/2013 Overview: IPCs DISPOSITION AND FOLLOW-UP 12/25/20122013 Overview: Full code Retinal detachment 10/26/2012 12/25/2012 documented as of this encounter (statuses as of 02/15/2023) [facility]06-02[facility]2016 History of Past illness Narrative* Problem Noted [...] 02/25/2014 morning - On fentanyl gtt per PROPAGATOR Plan: - PROPAGATOR team to round on patient and manage care Diabetic ketoacidosis withou t coma associated with type 1 diabetes mellitus 01/08/2014 02/04/2023 Overview: Type 1 diabetes with poor control, frequent DKA episodes --- Throughout the day she takes insulin to keep sugars 80-150 - Presented to [facility] on 01/08/2014 with sub-sternal chest pain [...] arise --- Follows with Dr. Garcia at [facility] Plan: - Continuous monitoring - F/u PROPAGATOR recs GBS (group B Streptococcus c arrier), +RV culture @ 22 wks 11/11/2013 04/16/2014 Hypertension in , antepartum 09/19/2013 01/08/2014 DVT prophylaxis 12/25/2012 09/04/2013 Overview: IPCs DISPOSITION AND FOLLOW-UP 12/25/2012 Overview: Full code Retinal detachment 10/26/2012 3 documented as of this encounter (statuses as of 06/02/2023) [facility] History of Past illness Narrative* Problem Noted [...] 02/25/2014 morning - On fentanyl gtt per PROPAGATOR Plan: - PROPAGATOR team to round on patient and manage care Diabetic ketoacidosis withou t coma associated with type 1 diabetes mellitus 01/08/2014 02/04/2023 Overview: Type 1 diabetes with poor control, frequent DKA episodes --- Throughout the day she takes insulin to keep sugars 80-150 - Presented to [facility] on 01/08/2014 with sub-sternal chest pain [...] arise --- Follows with Dr. Garcia at [facility] Plan: - Continuous monitoring - F/u PROPAGATOR recs GBS (group B Streptococcus c arrier), +RV culture @ 22 wks 11/11/2013 04/16/2014 Hypertension in , antepartum 09/19/2013 01/08/2014 DVT prophylaxis 12/25/2012 09/04/2013 Overview: IPCs DISPOSITION AND FOLLOW-UP 12/25/2012 Overview: Full code Retinal detachment 10/26/2012 3 documented as of this encounter (statuses as of 08/16/2023) [facility] History of Past illness Narrative* Problem Noted [...] 02/25/2014 morning - On fentanyl gtt per PROPAGATOR Plan: - PROPAGATOR team to round on patient and manage care Diabetic ketoacidosis withou t coma associated with type 1 diabetes mellitus 01/08/2014 02/04/2023 Overview: Type 1 diabetes with poor control, frequent DKA episodes --- Throughout the day she takes insulin to keep sugars 80-150 - Presented to [facility] on 01/08/2014 with sub-sternal chest pain [...] arise --- Follows with Dr. Garcia at [facility] Plan: - Continuous monitoring - F/u PROPAGATOR recs GBS (group B Streptococcus c arrier), +RV culture @ 22 wks 11/11/2013 04/16/2014 Hypertension in , antepartum 09/19/2013 01/08/2014 DVT prophylaxis 12/25/2012 09/04/2013 Overview: IPCs DISPOSITION AND FOLLOW-UP 12/25/2012 Overview: Full code Retinal detachment 10/26/2012 3 documented as of this encounter (statuses as of 09/29/2023) [facility] History of Past illness Narrative* Problem Noted [...] 02/25/2014 morning - On fentanyl gtt per PROPAGATOR Plan: - PROPAGATOR team to round on patient and manage care Diabetic ketoacidosis withou t coma associated with type 1 diabetes mellitus 01/08/2014 02/04/2023 Overview: Type 1 diabetes with poor control, frequent DKA episodes --- Throughout the day she takes insulin to keep sugars 80-150 - Presented to [facility] on 01/08/2014 with sub-sternal chest pain [...] arise --- Follows with Dr. Garcia at [facility] Plan: - Continuous monitoring - F/u PROPAGATOR recs GBS (group B Streptococcus c gregorio), +RV culture @ 22 wks 11/11/2013 04/16/2014 Hypertension in , antepartum 09/19/2013 01/08/2014 DVT prophylaxis 12/25/2012 09/04/2013 Overview: IPCs DISPOSITION AND FOLLOW-UP 12/25/2012 Overview: Full code Retinal detachment 10/26/2012 3 documented as of this encounter (statuses as of 09/29/2023) [facility] History of Past illness Narrative* Problem Noted [...] 02/25/2014 morning - On fentanyl gtt per PROPAGATOR Plan: - PROPAGATOR team to round on patient and manage care Diabetic ketoacidosis withou t coma associated with type 1 diabetes mellitus 01/08/2014 02/04/2023 Overview: Type 1 diabetes with poor control, frequent DKA episodes --- Throughout the day she takes insulin to keep sugars 80-150 - Presented to [facility] on 01/08/2014 with sub-sternal chest pain [...] arise --- Follows with Dr. Garcia at [facility] Plan: - Continuous monitoring - F/u PROPAGATOR recs GBS (group B Streptococcus c arrier), +RV culture @ 22 wks 11/11/2013 04/16/2014 Hypertension in , antepartum 09/19/2013 01/08/2014 DVT prophylaxis 12/25/2012 09/04/2013 Overview: IPCs DISPOSITION AND FOLLOW-UP 12/25/2012 Overview: Full code Retinal detachment 10/26/2012 3 documented as of this encounter (statuses as of 10/04/2023) [facility] History of Past illness Narrative* Problem Noted [...] 02/25/2014 morning - On fentanyl gtt per PROPAGATOR Plan: - PROPAGATOR team to round on patient and manage care Diabetic ketoacidosis withou t coma associated with type 1 diabetes mellitus 01/08/2014 02/04/2023 Overview: Type 1 diabetes with poor control, frequent DKA episodes --- Throughout the day she takes insulin to keep sugars 80-150 - Presented to [facility] on 01/08/2014 with sub-sternal chest pain [...] arise --- Follows with Dr. Garcia at [facility] Plan: - Continuous monitoring - F/u PROPAGATOR recs GBS (group B Streptococcus c arrier), +RV culture @ 22 wks 11/11/2013 04/16/2014 Hypertension in , antepartum 09/19/2013 01/08/2014 DVT prophylaxis 12/25/2012 09/04/2013 Overview: IPCs DISPOSITION AND FOLLOW-UP 12/25/2012 Overview: Full code Retinal detachment 10/26/2012 3 documented as of this encounter (statuses as of 10/12/2023) [facility] History of Past illness Narrative* Problem Noted [...] 02/25/2014 morning - On fentanyl gtt per PROPAGATOR Plan: - PROPAGATOR team to round on patient and manage care Diabetic ketoacidosis withou t coma associated with type 1 diabetes mellitus 01/08/2014 02/04/2023 Overview: Type 1 diabetes with poor control, frequent DKA episodes --- Throughout the day she takes insulin to keep sugars 80-150 - Presented to [facility] on 01/08/2014 with sub-sternal chest pain [...] arise --- Follows with Dr. Garcia at [facility] Plan: - Continuous monitoring - F/u PROPAGATOR recs GBS (group B Streptococcus c arrier), +RV culture @ 22 wks 11/11/2013 04/16/2014 Hypertension in , antepartum 09/19/2013 01/08/2014 DVT prophylaxis 12/25/2012 09/04/2013 Overview: IPCs DISPOSITION AND FOLLOW-UP 12/25/2012 Overview: Full code Retinal detachment 10/26/2012 3 documented as of this encounter (statuses as of 10/19/2023) [facility] History of Past illness Narrative* Problem Noted [...] 02/25/2014 morning - On fentanyl gtt per PROPAGATOR Plan: - PROPAGATOR team to round on patient and manage care Diabetic ketoacidosis withou t coma associated with type 1 diabetes mellitus 01/08/2014 02/04/2023 Overview: Type 1 diabetes with poor control, frequent DKA episodes --- Throughout the day she takes insulin to keep sugars 80-150 - Presented to [facility] on 01/08/2014 with sub-sternal chest pain [...] arise --- Follows with Dr. Garcia at [facility] Plan: - Continuous monitoring - F/u PROPAGATOR recs GBS (group B Streptococcus c arrier), +RV culture @ 22 wks 11/11/2013 04/16/2014 Hypertension in , antepartum 09/19/2013 01/08/2014 DVT prophylaxis 12/25/2012 09/04/2013 Overview: IPCs DISPOSITION AND FOLLOW-UP 12/25/2012 Overview: Full code Retinal detachment 10/26/2012 3 documented as of this encounter (statuses as of 10/20/2023) [facility] History of Past illness Narrative* Problem Noted [...] 02/25/2014 morning - On fentanyl gtt per PROPAGATOR Plan: - PROPAGATOR team to round on patient and manage care Diabetic ketoacidosis withou t coma associated with type 1 diabetes mellitus 01/08/2014 02/04/2023 Overview: Type 1 diabetes with poor control, frequent DKA episodes --- Throughout the day she takes insulin to keep sugars 80-150 - Presented to [facility] on 01/08/2014 with sub-sternal chest pain [...] arise --- Follows with Dr. Garcia at [facility] Plan: - Continuous monitoring - F/u PROPAGATOR recs GBS (group B Streptococcus c arrier), +RV culture @ 22 wks 11/11/2013 04/16/2014 Hypertension in , antepartum 09/19/2013 01/08/2014 DVT prophylaxis 12/25/2012 09/04/2013 Overview: IPCs DISPOSITION AND FOLLOW-UP 12/25/2012 Overview: Full code Retinal detachment 10/26/2012 3 documented as of this encounter (statuses as of 10/27/2023) [facility] History of Past illness Narrative* Problem Noted [...] 02/25/2014 morning - On fentanyl gtt per PROPAGATOR Plan: - PROPAGATOR team to round on patient and manage care Diabetic ketoacidosis withou t coma associated with type 1 diabetes mellitus 01/08/2014 02/04/2023 Overview: Type 1 diabetes with poor control, frequent DKA episodes --- Throughout the day she takes insulin to keep sugars 80-150 - Presented to [facility] on 01/08/2014 with sub-sternal chest pain [...] arise --- Follows with Dr. Garcia at [facility] Plan: - Continuous monitoring - F/u PROPAGATOR recs GBS (group B Streptococcus c arrier), +RV culture @ 22 wks 11/11/2013 04/16/2014 Hypertension in , antepartum 09/19/2013 01/08/2014 DVT prophylaxis 12/25/2012 09/04/2013 Overview: IPCs DISPOSITION AND FOLLOW-UP 12/25/2012 Overview: Full code Retinal detachment 10/26/2012 3 documented as of this encounter (statuses as of 11/03/2023) [facility] History of Past illness Narrative* Problem Noted [...] 02/25/2014 morning - On fentanyl gtt per PROPAGATOR Plan: - PROPAGATOR team to round on patient and manage care Diabetic ketoacidosis withou t coma associated with type 1 diabetes mellitus 01/08/2014 02/04/2023 Overview: Type 1 diabetes with poor control, frequent DKA episodes --- Throughout the day she takes insulin to keep sugars 80-150 - Presented to [facility] on 01/08/2014 with sub-sternal chest pain [...] arise --- Follows with Dr. Garcia at [facility] Plan: - Continuous monitoring - F/u PROPAGATOR recs GBS (group B Streptococcus c arrier), +RV culture @ 22 wks 11/11/2013 04/16/2014 Hypertension in , antepartum 09/19/2013 01/08/2014 DVT prophylaxis 12/25/2012 09/04/2013 Overview: IPCs DISPOSITION AND FOLLOW-UP 12/25/2012 Overview: Full code Retinal detachment 10/26/2012 3 documented as of this encounter (statuses as of 11/10/2023) [facility] History of Past illness Narrative* Problem Noted [...] 02/25/2014 morning - On fentanyl gtt per PROPAGATOR Plan: - PROPAGATOR team to round on patient and manage care Diabetic ketoacidosis withou t coma associated with type 1 diabetes mellitus 01/08/2014 02/04/2023 Overview: Type 1 diabetes with poor control, frequent DKA episodes --- Throughout the day she takes insulin to keep sugars 80-150 - Presented to [facility] on 01/08/2014 with sub-sternal chest pain [...] arise --- Follows with Dr. Garcia at [facility] Plan: - Continuous monitoring - F/u PROPAGATOR recs GBS (group B Streptococcus c arrier), +RV culture @ 22 wks 11/11/2013 04/16/2014 Hypertension in , antepartum 09/19/2013 01/08/2014 DVT prophylaxis 12/25/2012 09/04/2013 Overview: IPCs DISPOSITION AND FOLLOW-UP 12/25/2012 Overview: Full code Retinal detachment 10/26/2012 3 documented as of this encounter (statuses as of 12/14/2023) [facility] History of Past illness Narrative* Problem Noted [...] 02/25/2014 morning - On fentanyl gtt per PROPAGATOR Plan: - PROPAGATOR team to round on patient and manage care Diabetic ketoacidosis withou t coma associated with type 1 diabetes mellitus 01/08/2014 02/04/2023 Overview: Type 1 diabetes with poor control, frequent DKA episodes --- Throughout the day she takes insulin to keep sugars 80-150 - Presented to [facility] on 01/08/2014 with sub-sternal chest pain [...] arise --- Follows with Dr. Garcia at [facility] Plan: - Continuous monitoring - F/u PROPAGATOR recs GBS (group B Streptococcus c arrier), +RV culture @ 22 wks 11/11/2013 04/16/2014 Hypertension in , antepartum 09/19/2013 01/08/2014 DVT prophylaxis 12/25/2012 09/04/2013 Overview: IPCs DISPOSITION AND FOLLOW-UP 12/25/2012 Overview: Full code Retinal detachment 10/26/2012 3 documented as of this encounter (statuses as of 12/15/2023) [facility] note Author Cynthia Hutchison [facility] October 18, 2023 11:21am Note Date/Time October 18, 2023 11:21am [facility] Medical Records Department [address] [place] [address] Counseling Note - Pharmacy 10/18/23 1121 MR#: [id number] Acct: [id number] Name: KATHLEEN VILLA Rep #:[id number] : 1995 28 From: Cynthia Hutchison PCP: FUNMILAYO SMITH Status:ADM IN Y Location: ICU CVICU 2-1 Pharmacy [place] Med Reconciliation Pharmacy Service has performed discharge medication reconciliation for this patient. The patient's discharge medication list was reviewed for discrepancies and discrepancies were resolved. Medications at Discharge Home Medications insulin lispro 100 unit/mL subcutaneous solution (Humalog U-100 Insulin) See Rx Instructions .Route .COMPLEX 04/27/23 pen needle, diabetic 29 gauge x 1/2 (Ultra-Thin II Insulin Pen [place]) #100 ea08/10/23 prochlorperazine maleate 10 mg tablet (Compazine) 10 mg PO TID PRN nausea and vomiting #20 tabs 09/25/23 10/18/23 1121 <Electronically signed by Cynthia Hutchison> Date _ Cynthia Hutchison Cosigner Signature (if applicable): Date CC: ~ Signed [facility] Work Phone: Discharge summary Author Ileana Lobo [facility] April 29, 2023 5:54pm Note Date/Time April 29, 2023 5:45pm [facility] Medical Records Department [address] [place] [address] Instructions for Home/Discharge Instructions 04/29/23 1744 MR#: [id number] Acct: [id number] Name: KATHLEEN VILLA Rep #:[id number] : [...] MD; No Primary Care Physician ~ Signed [facility] Work Phone: Discharge summary Author Alexandro Garces [facility] October 17, 2023 11:38am Note Date/Time October 17, 2023 11:24am [facility] Medical Records Department [address] [place] [address] Emergency Department Summary 10/17/23 MR#: [id number] Acct: [id number] Name: KATHLEEN VILLA Rep #:[id number] : [...] Prior similar symptoms: Yes Recent Illness/Hospitalization: No [facility] <Jacqueline Alvarez RN - Last Filed: 10/17/23 11:31> [facility] Medical History Anxiety Borderline personality [...] gauge x 1/2 (Ultra-Thin II Insulin Pen [place]) #100 ea08/10/23 [Rx Last Taken Unknown] ibuprofen [...] no rashes or lesions noted <Dr. Alexandro aGrces MD - Last Filed: 10/17/23 11:38> Physical Exam Const Vital Signs: 10/17/23 09:57 10/17/23 10:02 10/17/23 10:02 Temperature 98.2 F Temperature Source Oral Pulse Rate 138 H 142 H Respiratory Rate 18 Respiratory Effort Normal Respiratory Pattern Normal Blood Pressure 149/124 H Blood Pressure Mean 132 Pulse Ox 96 Oxygen Delivery Method Room Air MDM <Jacqueline Alvarez RN - Last Filed: 10/17/23 11:31> [facility] MDM Narrative Medical decision making narrative: Patient placed on computing tutor. IV line initiated. Labwork obtained to evaluate [...] 88.4 H Lymph % (Auto) 7.8 L Bro[place] % (Auto) 2.4 Eos % (Auto) 0.1 [...] Garces MD - Last Filed: 10/17/23 11:38> [facility] Narrative Medical decision making narrative: Patient placed on computing tutor. IV line initiated. Labwork obtained to evaluate [...] 88.4 H Lymph % (Auto) 7.8 L [place] % (Auto) 2.4 Eos % (Auto) 0.1 [...] minutes, Including time spent:, Discussing w/Patient &/or Family/Precision Machine Operator, Discussing w/Consultants, Arranging Admission or Transfer, Performing Direct Patient Care at Bedside and - (35 minutes) Discharge Plan Dx/Rx/DC Orders Clinical Impression: DKA (diabetic ketoacidosis), Tachycardia, Nausea & vomiting, Acute dehydration Disposition Disposition: Acute Care Hospital [facility] What to do if you have Problems For any increased pain, shortness of breath, bleeding, nausea or vomiting, chest pain, or any unexpected problems, contact your Primary Care Provider. Call [facility] ([phone]) or report to the closest Emergency Room. Call 911 if necessary. 10/17/23 1138 <Electronically signed by Alexandro Garces MD> Cosigner Signature (if applicable): 10/17/23 1131 <Electronically signed by Jacqueline Alvarez RN> CC: FUNMILAYO SMITH ~ Signed [facility] Work Phone: Discharge summary [facility] October 18, 2023 10:54am Note Date/Time October 18, 2023 10:54am [facility] Medical Records Department [address] [place] [id number] Instructions for Home/Discharge Instructions 10/18/23 1054 MR#: [id number] Acct: [id number] Name: KATHLEEN VILLA Rep #:[id number] : [...] Instructions / Restrictions: follow up with your inspector semiconductor wafer and observatory director SIRI. Discharge Orders/Prescriptions Prescriptions: Continued insulin lispro [...] pen needle, diabetic [Ultra-Thin II Ins Pen [place]] 29 gauge x 1/2 needle See Rx [...] Jefferson MD CC: FUNMILAYO SMITH ~ Signed [facility] Work Phone: Discharge summary Author [facility] October 18, 2023 11:09am Note Date/Time October 18, 2023 10:58am [facility] Medical Records Department [address] [place] [address] Discharge Summary 10/18/23 1054 MR#: [id number] Acct: [id number] Name: KATHLEEN VILLA Rep #:[id number] : [...] was 6.7. * follows up with an inspector semiconductor wafer in [facility] in [place]. * last A1C from 08/07/2023 was 7 [...] gauge x 1/2 (Ultra-Thin II Insulin Pen [place]) #100 ea08/10/23 prochlorperazine maleate 10 mg tablet [...] per patient, her last A1C with her inspector semiconductor wafer was 6.7. She had however had recurrent [...] to follow up with her PCP and inspector semiconductor wafer as well as observatory director o/a of gastroparesis. Patient seen and examined [...] % (Auto) 59.5, Lymph % (Auto) 32.5, Broome % (Auto) 6.0, Eos % (Auto) 1.0, [...] Instructions / Restrictions: follow up with your inspector semiconductor wafer and observatory director SIRI. Discharge Orders/Prescriptions Prescriptions: Continued insulin lispro [...] pen needle, diabetic [Ultra-Thin II Ins Pen [place]] 29 gauge x 1/2 needle See Rx [...] Self Care Charges/Coding Visit Charges Inpatient E&M: 21732 Disch Hosp >30min 10/18/23 1109 <Electronically signed by Vita Jefferson MD> Cosigner Signature (if applicable): CC: Dr. Vita Jefferson MD; FUNMILAYO SMITH~ Signed [facility] Work Phone: Evaluation note* Diagnosis Type 1 diabetes mellitus with other specified complication (HCC)- Primary [facility] Diagnosis Obstruction of central line, initial encounter (HCC)- Primary documented in this encounter [facility] note* Diagnosis Type 1 diabetes mellitus with other specified complication ([facility] Diagnosis Menstrual irregularity- Primary Irregular menstrual cycle Screening for STD (sexually transmitted disease) Screening examination for venereal disease Chronic nausea Nausea alone [facility]* Diagnosis 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 ([facility]) documented in this encounter [facility] note* Diagnosis Chronic idiopathic constipation Unspecified constipation [facility] Diagnosis Gonorrhea- Primary Gonococcal infection (acute) of lower genitourinary tract [facility]* Diagnosis Gonorrhea- Primary Gonococcal infection (acute) of lower genitourinary tract documented in this [facility]* Diagnosis Gonorrhea- Primary Gonococcal infection (acute) of lower genitourinary tract Screen for sexually transmitted diseases Screening examination for venereal disease documented [facility]* Diagnosis Type 1 diabetes mellitus with hyperglycemia (HCC)- Primary Type I (juvenile type) diabetes mellitus without mention of complication, not stated as uncontrolled Insulin pump status Abnormal results of thyroid function studies Nonspecific abnormal results of thyroid function study documented in this encounter [facility] note* Diagnosis Type 1 diabetes mellitus with hyperglycemia, with long-term current use of insulin (HCC)- Primary Insulin pump status documented in this encounter [facility] note* Diagnosis Type 1 diabetes mellitus with other specified complication ([facility])- Primary documented in this encounter [facility] note* Diagnosis Lower abdominal pain- Primary Abdominal pain, other specified site [facility] Diagnosis Viral conjunctivitis- Primary Unspecified diseases of conjunctiva due to viruses [facility] Diagnosis Gastroparesis due to DM (HCC)- [...] Abdominal pain, generalized documented in this encounter [facility] note* Diagnosis Gastroparesis due to DM ([facility])- Primary Type II or unspecified type diabetes mellitus with neurological manifestations, not stated as uncontrolled Generalized abdominal pain Abdominal pain, generalized documented in this encounter [facility] note* Diagnosis Left flank pain- Primary Abdominal pain, unspecified site documented in this encounter [facility] note* Diagnosis Left flank pain- Primary Abdominal pain, unspecified site Dysuria documented in this encounter [facility] note* Diagnosis Type 1 diabetes mellitus with hyperglycemia, with long-term current use of insulin ([facility])- Primary Insulin pump status Screening for diabetic retinopathy Screening for other eye conditions documented in this encounter [facility] note* Diagnosis Nausea & vomiting- Primary Nausea with vomiting Hyperglycemia Other abnormal glucose Ketonuria Acetonuria Nausea and vomiting, unspecified vomiting type Abdominal pain, unspecified abdominal location Chest pain, unspecified type Bradycardia Other specified cardiac dysrhythmias documented in this encounter [facility] noteNo assessment information availableWMer[facility] Work Phone: evaluation note* Diagnosis Onset Date Resolution Status Intractable vomiting acute [facility] Work Phone: evaluation note* Diagnosis Psoriasis vulgaris- Primary Other psoriasis [facility]* Diagnosis Type 1 diabetes mellitus with hyperglycemia, with long-term current use of insulin ([facility])- Primary Insulin pump status documented in this encounter [facility] note* Diagnosis Onset Date Resolution Status Diabetic gastroparesis acute DKA (diabetic ketoacidoses) acute Enterocolitis acute Intractable nausea and vomiting acute Nausea & vomiting acute Type 1 diabetes acute [facility] Work Phone: Evaluation note* Diagnosis Onset Date Resolution Status DKA (diabetic ketoacidoses) resolved Intractable nausea and vomiting resolved Nausea & vomiting resolved [facility] Work Phone: Evaluation note* Diagnosis Onset Date Resolution Status DKA (diabetic ketoacidoses) resolved Intractable nausea and vomiting resolved Nausea & vomiting resolved Acute dehydration acute DKA (diabetic ketoacidosis) acute Nausea & vomiting acute Tachycardia acute [facility] Work Phone: Evaluation note* Diagnosis Psoriasis vulgaris- Primary Other psoriasis Multiple benign nevi documented in this encounter [facility] note* Diagnosis Onset Date Resolution Status DKA (diabetic ketoacidoses) resolved Intractable nausea and vomiting resolved Nausea & vomiting resolved Acute dehydration resolved DKA (diabetic ketoacidosis) resolved Nausea & vomiting resolved Tachycardia resolved [facility] Work Phone: Evaluation note* Diagnosis Type 1 diabetes mellitus with hyperglycemia, with long-term current use of insulin (HCC)- Primary Insulin pump status documented in this encounter [facility] note* Diagnosis Type 1 diabetes mellitus with hyperglycemia, with long-term current use of insulin ([facility]) Insulin pump status documented in this encounter [facility] note* Diagnosis Type 1 diabetes mellitus with hyperglycemia, with long-term current use of insulin ([facility])- Primary Insulin pump status documented in this encounter [facility] note* Diagnosis Type 1 diabetes mellitus with hyperglycemia, with long-term current use of insulin ([facility]) documented in this encounter [facility] note* Diagnosis Obstructive sleep apnea- Primary Obstructive sleep apnea (adult) (pediatric) Dyspnea Other dyspnea and respiratory abnormality Type 1 diabetes mellitus with hyperglycemia, with long-term current use of insulin ([facility]) Insulin pump status documented in this encounter [facility] note* Diagnosis Obstructive sleep apnea- Primary Obstructive sleep apnea (adult) (pediatric) Dyspnea Other dyspnea and respiratory abnormality Diabetes mellitus type 1, controlled, without complications (HCC)- Primary Type I (juvenile type) diabetes mellitus without mention of complication, not stated as uncontrolled documented in this encounter [facility] note* Diagnosis Obstructive sleep apnea- Primary [...] for venereal disease documented in this encounter [facility] note* Diagnosis Obstructive sleep apnea- Primary Obstructive sleep apnea (adult) (pediatric) Dyspnea Other dyspnea and respiratory abnormality Type 1 diabetes mellitus with hyperglycemia, with long-term current use of insulin (HCC)- Primary Insulin pump status documented in this encounter [facility] note* Diagnosis Obstructive sleep apnea- Primary Obstructive sleep apnea (adult) (pediatric) Dyspnea Other dyspnea and respiratory abnormality Type 1 diabetes mellitus with hyperglycemia, with long-term current use of insulin (HCC) Insulin pump status [facility]* Diagnosis Psoriasis vulgaris- Primary Other psoriasis Folliculitis Other specified disease of hair and hair follicles Encounter for long-term current use of high risk medication Screening for viral disease Special screening examination for unspecified viral disease documented in this encounter [facility] note* Diagnosis Obstructive sleep apnea- Primary Obstructive sleep apnea (adult) (pediatric) Dyspnea Other dyspnea and respiratory abnormality Chronic idiopathic constipation- Primary Unspecified constipation Gastroparesis documented in this encounter [facility] note* Diagnosis Obstructive sleep apnea- Primary Obstructive sleep apnea (adult) (pediatric) Dyspnea Other dyspnea and respiratory abnormality Chronic idiopathic constipation- Primary Unspecified constipation Abdominal pain, suprapubic Abdominal pain, other specified site Chronic idiopathic constipation Unspecified constipation documented in this encounter [facility] note* Diagnosis Obstructive sleep apnea- Primary Obstructive sleep apnea (adult) (pediatric) Dyspnea Other dyspnea and respiratory abnormality Chronic idiopathic constipation Unspecified constipation documented in this encounter [facility] note* Diagnosis Psoriasis vulgaris- Primary Other [...] of other medications documented in this encounter [facility] course Narrative No data available for this section [facility] Hospital Discharge instructions No data available for this section [facility] Hospital Discharge instructions* Attachments The following attachments cannot be sent through Care Everywhere. * Gastroparesis (Sami) [facility] Additional Instructions Please follow-up with your diabetes doctor Please keep a close eye on your blood sugar and adjust your pump accordingly. Please try to drink plenty of fluids today.[facility] Work Phone: Hospital Discharge instructions Additional Instructions You have influenza B. You should start to feel better later in the week. You need to maintain hydration, keep a close eye on your sugars. You need to eat and drink, do not get behind and get dehydrated. Use ibuprofen and Tylenol. Use your albuterol inhaler.[facility] Work Phone: Progress note No data available for this section [facility] Reason for visit Narrative* Diagnostic Procedure Only (Routine) - Closed Specialty Diagnoses / Procedures Referred By Contclarisa t Referred To Contact XR IMAGING Diagnoses Chronic idiopathic constipation Procedures XR ABDOMEN 1V SUPINE RADIOLOGIC EXAM ABDOMEN 1 VIEW Leticia Hylton DO [address] [place] [address] Phone: tel: fax: [place] [address] Referral ID Status Reason Start Date Expiration Date V isits Requested Visits Authorized [id number] Closed Auto-Generate d Referral 11/11/2024 12/11/2025 1 1 [facility] Summary Purpose Family History No Family History Records FoundNo Family History Records FoundNo Family History Records FoundNo Family History Records FoundNo Family History Records FoundNo Family History Records FoundNo Family History Records FoundNo Family History Records FoundNo Family History Records FoundNo Family History Records Found Advance Directives No Advanced Directives Records FoundDocuments on File Type Date Recorded Patient Ammonia Refrigeration Technician Expl anation Advance Directive(s) Advance Directive(s) 01/02/2020 3:16 PM Advance Directive(s) 01/20/2016 9:39 AM Advance Directive(s) 11/13/2015 8:50 AM Advance Directive(s) 02/27/2014 5:42 PM Advance Directive(s) 01/09/2014 8:55 PM Advance Directive(s) 12/25/2012 9:16 PM Documents on File Type Date Recorded Patient Ammonia Refrigeration Technician Expl anation Advance Directive(s) 02/27/2014 5:42 PM Advance Directive(s) 01/09/2014 8:55 PM Advance Directive(s) 12/25/2012 9:16 PM Documents on File Type Date Recorded Patient Ammonia Refrigeration Technician Expl anation Advance Directive(s) 02/27/2014 5:42 PM [...] No April 26 3 9:30pm Power of Fare Enforcement Officer No April 26, 2 023 9:30pm Advance Directive Response Recorded Date/ Time Living Will No April 27 3 9:26am Power of Fare Enforcement Officer No April 27, 2 023 9:26am Advance Directive Response Recorded Date/ Time Living Will No April 27 3 5:02pm Power of Fare Enforcement Officer No April 27, 2 023 5:02pm Advance Directive Response Recorded Date/ Time Living Will No May 03, 2 023 4:27am Power of Fare Enforcement Officer No May 03, 2023 4:27am Latest Code [...] Will No June 25 9:47am Power of Fare Enforcement Officer No June 25, 2023 9:47am Advance Directive Response Recorded Date/ Time Living Will No June 25 11:14pm Power of Fare Enforcement Officer No June 25, 2023 11:14pm Advance Directive Response Recorded Date/ Time Living Will No August 06, 2 023 8:56am Power of Fare Enforcement Officer No August 06, 2023 8:56am Advance Directive Response Recorded Date/ Time Living Will No August 06, 2 023 9:39pm Power of Fare Enforcement Officer No August 06, 2023 9:39pm Advance Directive Response Recorded Date/ Time Living Will No August 22, 2 023 2:48am Power of Fare Enforcement Officer No August 22, 2023 2:48am Advance Directive Response Recorded Date/ Time Living Will No September 24 5:58pm Power of Fare Enforcement Officer No September 24, 2023 5:58pm Advance Directive Response Recorded Date/ Time Living Will No October 17, 2 024 10:02am Power of Fare Enforcement Officer No October 17, 2023 10:02am Advance Directive Response Recorded Date/ Time Living Will No October 17, 2 024 12:47pm Power of Fare Enforcement Officer No October 17, 2023 12:47pm Advance Directive Response Recorded Date/ Time Living Will No October 25, 2 024 4:43pm Power of Fare Enforcement Officer No October 25, 2023 4:43pm Date Activated Date Inactivated Comments 02/01/2023 2:02 AM 02/04/2023 6:35 PM Question Answer Comments Full Code Order Discussed With: Patient Date Activated Date Inactivated Comments 11/23/2022 11:30 PM 11/26/2022 7:43 PM Question Answer Comments Full Code Order Discussed With: Patient Advance Directive Response Recorded Date/ Time Living Will No October 25, 024 5:43pm Power of Fare Enforcement Officer No October 25, 2023 5:43pm Date Activated Date Inactivated Comments 02/01/2023 2:02 AM 02/04/2023 6:35 PM Question Answer Comments Full Code Order Discussed With: Patient Date Activated Date Inactivated Comments 11/23/2022 11:30 PM 11/26/2022 7:43 PM Question Answer Comments Full Code Order Discussed With: Patient Advance Directive Response Recorded Date/ Time Living Will No August 07, 2 023 1:35am Power of Fare Enforcement Officer No August 07, 2023 1:35am Health Concerns [...] DSME/MNT MEDICAL NUTRITION ASSMT&IVNTJ INDIV EACH 15 MS MEDICAL NUTRITION ASSMT&IVNTJ INDIV EACH 15 MS MEDICAL NUTRITION ASSMT&IVNTJ INDIV EACH 15 MS MEDICAL NUTRITION ASSMT&IVNTJ INDIV EACH 15 MS Jessica Guerrero APRN.PRE PAROLE COUNSELING AIDE [address] [id number] Referral ID Status Reason Start Date Expiration Date Visits Requested Visits Authorized [id number] Authorized PCP Requested Referral 12/13/2023 12/12/2024 1 1 Specialty Diagnoses / Procedures Referred By Contac t Referred To Contact Diagnoses Psoriasis vulgaris Leesa Huddleston PA-C [address] [facility] [address] [place] [address] Referral ID Status Reason Start Date Expiration Date V isits Requested Visits Authorized [id number] Authorized 04/14/2021 05/13/2024 1 1 Specialty Diagnoses / Procedures Referred By Contac t Referred To Contact Ophthalmology Diagnoses Screening for diabetic retinopathy Procedures CONSULT TO OPHTHALMOLOGY OFFICE/OUTPATIENT [facility] 60-74 MINUTES Autumn Valadez, PAIN MANAGEMENT NURSE PRACTITIONER.PRE PAROLE COUNSELING AIDE [address] [place] [address] Referral ID Status Reason Start Date Expiration Date Visits Requested Visits Authorized [id number] Authorized PCP Requested Referral 01/25/2023 01/25/2024 1 1 Specialty Diagnoses / Procedures Referred By Contac t Referred To Contact Gastroenterology Diagnoses Gastroparesis due to DM (HCC) Generalized abdominal pain Procedures CONSULT TO GASTROENTEROLOGY OFFICE/OUTPATIENT [facility] 60-74 MINUTES Vivi Smith MD [address] [place] [address] [place] [address] [facility] [address] [place] [address] Referral ID Status Reason Start Date Expiration Date Visits Requested Visits Authorized [id number] Authorized PCP Requested Referral 12/09/2022 12/09/2023 1 1 Specialty Diagnoses / Procedures Referred By Contac t Referred To Contact Pain Management / PAIN MANAGEMENT Diagnoses Gastroparesis due to DM (HCC) Generalized abdominal pain Procedures CONSULT TO PAIN MGT OFFICE/OUTPATIENT [facility] 60-74 MINUTES Vivi Smith MD [address] [place] [address] Elisabet Guzmán DO [address] [facility] [place] [address] Referral ID Status Reason Start Date Expiration Date Visits Requested Visits Authorized [id number] Authorized PCP Requested Referral 12/09/2022 12/09/2023 1 1 Specialty Diagnoses / Procedures Referred By Contac t Referred To Contact Gynecology Diagnoses Menstrual irregularity Procedures CONSULT TO GYNECOLOGY OFFICE/OUTPATIENT [facility] 60-74 MINUTES Dashawn Cain, PAIN MANAGEMENT NURSE PRACTITIONER.PRE PAROLE COUNSELING AIDE [address] [place] [address] Referral ID Status Reason Start Date Expiration Date Visits Requested Visits Authorized [id number] Authorized PCP Requested Referral Auto-Generate d Referral [...] section and content) DATE CREATED AUTHOR 02/21/2018 [facility] DATE CREATED AUTHOR AUTHOR'S ORGANIZ ATION 12/28/2021 [facility] CREATED AUTHOR AUTHOR'S ORGANIZ ATION 02/12/2022 [facility] [place] DATE CREATED AUTHOR AUTHOR'S ORGANIZ ATION 03/04/2023 [facility] DATE CREATED AUTHOR AUTHOR[facility]S [facility]GANIZ ATION [facility] DATE CREATED AUTHOR AUTHOR'S ORGANIZ ATION 12/17/2023 [facility] DATE CREATED AUTHOR AUTHOR'S ORGANIZ ATION 11/13/2024 [facility] DATE CREATED AUTHOR AUTHOR'S ORGANIZ ATION 11/15/2024 [facility] DATE CREATED AUTHOR AUTHOR'S ORGANIZ ATION 01/28/2025 [facility] DATE CREATED AUTHOR AUTHOR'S ORGANIZ ATION 04/15/2025 [facility] Source Comments (unrecognize d section and content) In the event this informatio n is protected by the Federal Confidentiality of Alcohol and Drug Abuse Patient Records regulations: The Federal rules restrict any use of the information to criminally investigate or prosecute any alcohol or drug abuse patient.[facility] Center[facility] the event this information is protected by the Federal Confidentiality of Alcohol and Drug Abuse Patient Records regulations: The Federal rules restrict any use of the information to criminally investigate or prosecute any alcohol or drug abuse patient.[facility] CenterIn the event this information is protected by the Federal Confidentiality of Alcohol and Drug Abuse Patient Records regulations: The Federal rules restrict any use of the information to criminally investigate or prosecute any alcohol or drug abuse patient.[facility] CenterIn the event this information is protected by the Federal Confidentiality of Alcohol and Drug Abuse Patient Records regulations: The Federal rules restrict any use of the information to criminally investigate or prosecute any alcohol or drug abuse patient.[facility] CenterIn the event this information is protected by the Federal Confidentiality of Alcohol and Drug Abuse Patient Records regulations: The Federal rules restrict any use of the information to criminally investigate or prosecute any alcohol or drug abuse patient.[facility] CenterIn the event this information is protected by the Federal Confidentiality of Alcohol and Drug Abuse Patient Records regulations: The Federal rules restrict any use of the information to criminally investigate or prosecute any alcohol or drug abuse patient.[facility] CenterIn the event this information is protected by the Federal Confidentiality of Alcohol and Drug Abuse Patient Records regulations: The Federal rules restrict any use of the information to criminally investigate or prosecute any alcohol or drug abuse patient.[facility] CenterIn the event this information is protected by the Federal Confidentiality of Alcohol and Drug Abuse Patient Records regulations: The Federal rules restrict any use of the information to criminally investigate or prosecute any alcohol or drug abuse patient.[facility] CenterIn the event this information is protected by the Federal Confidentiality of Alcohol and Drug Abuse Patient Records regulations: The Federal rules restrict any use of the information to criminally investigate or prosecute any alcohol or drug abuse patient.[facility] CenterIn the event this information is protected by the Federal Confidentiality of Alcohol and Drug Abuse Patient Records regulations: The Federal rules restrict any use of the information to criminally investigate or prosecute any alcohol or drug abuse patient.[facility] CenterIn the event this information is protected by the Federal Confidentiality of Alcohol and Drug Abuse Patient Records regulations: The Federal rules restrict any use of the information to criminally investigate or prosecute any alcohol or drug abuse patient.[facility] CenterIn the event this information is protected by the Federal Confidentiality of Alcohol and Drug Abuse Patient Records regulations: The Federal rules restrict any use of the information to criminally investigate or prosecute any alcohol or drug abuse patient.[facility] CenterIn the event this information is protected by the Federal Confidentiality of Alcohol and Drug Abuse Patient Records regulations: The Federal rules restrict any use of the information to criminally investigate or prosecute any alcohol or drug abuse patient.[facility] CenterIn the event this information is protected by the Federal Confidentiality of Alcohol and Drug Abuse Patient Records regulations: The Federal rules restrict any use of the information to criminally investigate or prosecute any alcohol or drug abuse patient.[facility] CenterIn the event this information is protected by the Federal Confidentiality of Alcohol and Drug Abuse Patient Records regulations: The Federal rules restrict any use of the information to criminally investigate or prosecute any alcohol or drug abuse patient.[facility] CenterIn the event this information is protected by the Federal Confidentiality of Alcohol and Drug Abuse Patient Records regulations: The Federal rules restrict any use of the information to criminally investigate or prosecute any alcohol or drug abuse patient.[facility] CenterIn the event this information is protected by the Federal Confidentiality of Alcohol and Drug Abuse Patient Records regulations: The Federal rules restrict any use of the information to criminally investigate or prosecute any alcohol or drug abuse patient.[facility] CenterIn the event this information is protected by the Federal Confidentiality of Alcohol and Drug Abuse Patient Records regulations: The Federal rules restrict any use of the information to criminally investigate or prosecute any alcohol or drug abuse patient.[facility] CenterIn the event this information is protected by the Federal Confidentiality of Alcohol and Drug Abuse Patient Records regulations: The Federal rules restrict any use of the information to criminally investigate or prosecute any alcohol or drug abuse patient.[facility] CenterIn the event this information is protected by the Federal Confidentiality of Alcohol and Drug Abuse Patient Records regulations: The Federal rules restrict any use of the information to criminally investigate or prosecute any alcohol or drug abuse patient.[facility] CenterIn the event this information is protected by the Federal Confidentiality of Alcohol and Drug Abuse Patient Records regulations: The Federal rules restrict any use of the information to criminally investigate or prosecute any alcohol or drug abuse patient.[facility] CenterIn the event this information is protected by the Federal Confidentiality of Alcohol and Drug Abuse Patient Records regulations: The Federal rules restrict any use of the information to criminally investigate or prosecute any alcohol or drug abuse patient.[facility] CenterIn the event this information is protected by the Federal Confidentiality of Alcohol and Drug Abuse Patient Records regulations: The Federal rules restrict any use of the information to criminally investigate or prosecute any alcohol or drug abuse patient.[facility] CenterIn the event this information is protected by the Federal Confidentiality of Alcohol and Drug Abuse Patient Records regulations: The Federal rules restrict any use of the information to criminally investigate or prosecute any alcohol or drug abuse patient.[facility] CenterIn the event this information is protected by the Federal Confidentiality of Alcohol and Drug Abuse Patient Records regulations: The Federal rules restrict any use of the information to criminally investigate or prosecute any alcohol or drug abuse patient.[facility] CenterIn the event this information is protected by the Federal Confidentiality of Alcohol and Drug Abuse Patient Records regulations: The Federal rules restrict any use of the information to criminally investigate or prosecute any alcohol or drug abuse patient.[facility] CenterIn the event this information is protected by the Federal Confidentiality of Alcohol and Drug Abuse Patient Records regulations: The Federal rules restrict any use of the information to criminally investigate or prosecute any alcohol or drug abuse patient.[facility] CenterIn the event this information is protected by the Federal Confidentiality of Alcohol and Drug Abuse Patient Records regulations: The Federal rules restrict any use of the information to criminally investigate or prosecute any alcohol or drug abuse patient.[facility] CenterIn the event this information is protected by the Federal Confidentiality of Alcohol and Drug Abuse Patient Records regulations: The Federal rules restrict any use of the information to criminally investigate or prosecute any alcohol or drug abuse patient.[facility] CenterIn the event this information is protected by the Federal Confidentiality of Alcohol and Drug Abuse Patient Records regulations: The Federal rules restrict any use of the information to criminally investigate or prosecute any alcohol or drug abuse patient.[facility] CenterIn the event this information is protected by the Federal Confidentiality of Alcohol and Drug Abuse Patient Records regulations: The Federal rules restrict any use of the information to criminally investigate or prosecute any alcohol or drug abuse patient.[facility] CenterIn the event this information is protected by the Federal Confidentiality of Alcohol and Drug Abuse Patient Records regulations: The Federal rules restrict any use of the information to criminally investigate or prosecute any alcohol or drug abuse patient.[facility] CenterIn the event this information is protected by the Federal Confidentiality of Alcohol and Drug Abuse Patient Records regulations: The Federal rules restrict any use of the information to criminally investigate or prosecute any alcohol or drug abuse patient.[facility] CenterIn the event this information is protected by the Federal Confidentiality of Alcohol and Drug Abuse Patient Records regulations: The Federal rules restrict any use of the information to criminally investigate or prosecute any alcohol or drug abuse patient.[facility] CenterIn the event this information is protected by the Federal Confidentiality of Alcohol and Drug Abuse Patient Records regulations: The Federal rules restrict any use of the information to criminally investigate or prosecute any alcohol or drug abuse patient.[facility] CenterIn the event this information is protected by the Federal Confidentiality of Alcohol and Drug Abuse Patient Records regulations: The Federal rules restrict any use of the information to criminally investigate or prosecute any alcohol or drug abuse patient.[facility] CenterIn the event this information is protected by the Federal Confidentiality of Alcohol and Drug Abuse Patient Records regulations: The Federal rules restrict any use of the information to criminally investigate or prosecute any alcohol or drug abuse patient.[facility] CenterIn the event this information is protected by the Federal Confidentiality of Alcohol and Drug Abuse Patient Records regulations: The Federal rules restrict any use of the information to criminally investigate or prosecute any alcohol or drug abuse patient.[facility] CenterIn the event this information is protected by the Federal Confidentiality of Alcohol and Drug Abuse Patient Records regulations: The Federal rules restrict any use of the information to criminally investigate or prosecute any alcohol or drug abuse patient.[facility] the event this information is protected by the Federal Confidentiality of Alcohol and Drug Abuse Patient Records regulations: The Federal rules restrict any use of the information to criminally investigate or prosecute any alcohol or drug abuse patient.[facility] CenterIn the event this information is protected by the Federal Confidentiality of Alcohol and Drug Abuse Patient Records regulations: The Federal rules restrict any use of the information to criminally investigate or prosecute any alcohol or drug abuse patient.[facility] CenterIn the event this information is protected by the Federal Confidentiality of Alcohol and Drug Abuse Patient Records regulations: The Federal rules restrict any use of the information to criminally investigate or prosecute any alcohol or drug abuse patient.[facility] CenterIn the event this information is protected by the Federal Confidentiality of Alcohol and Drug Abuse Patient Records regulations: The Federal rules restrict any use of the information to criminally investigate or prosecute any alcohol or drug abuse patient.[facility] CenterIn the event this information is protected by the Federal Confidentiality of Alcohol and Drug Abuse Patient Records regulations: The Federal rules restrict any use of the information to criminally investigate or prosecute any alcohol or drug abuse patient.[facility] CenterIn the event this information is protected by the Federal Confidentiality of Alcohol and Drug Abuse Patient Records regulations: The Federal rules restrict any use of the information to criminally investigate or prosecute any alcohol or drug abuse patient.[facility] CenterIn the event this information is protected by the Federal Confidentiality of Alcohol and Drug Abuse Patient Records regulations: The Federal rules restrict any use of the information to criminally investigate or prosecute any alcohol or drug abuse patient.[facility] CenterIn the event this information is protected by the Federal Confidentiality of Alcohol and Drug Abuse Patient Records regulations: The Federal rules restrict any use of the information to criminally investigate or prosecute any alcohol or drug abuse patient.[facility] CenterIn the event this information is protected by the Federal Confidentiality of Alcohol and Drug Abuse Patient Records regulations: The Federal rules restrict any use of the information to criminally investigate or prosecute any alcohol or drug abuse patient.[facility] CenterIn the event this information is protected by the Federal Confidentiality of Alcohol and Drug Abuse Patient Records regulations: The Federal rules restrict any use of the information to criminally investigate or prosecute any alcohol or drug abuse patient.[facility] CenterIn the event this information is protected by the Federal Confidentiality of Alcohol and Drug Abuse Patient Records regulations: The Federal rules restrict any use of the information to criminally investigate or prosecute any alcohol or drug abuse patient.[facility] CenterIn the event this information is protected by the Federal Confidentiality of Alcohol and Drug Abuse Patient Records regulations: The Federal rules restrict any use of the information to criminally investigate or prosecute any alcohol or drug abuse patient.[facility] CenterIn the event this information is protected by the Federal Confidentiality of Alcohol and Drug Abuse Patient Records regulations: The Federal rules restrict any use of the information to criminally investigate or prosecute any alcohol or drug abuse patient.[facility] CenterIn the event this information is protected by the Federal Confidentiality of Alcohol and Drug Abuse Patient Records regulations: The Federal rules restrict any use of the information to criminally investigate or prosecute any alcohol or drug abuse patient.[facility] CenterIn the event this information is protected by the Federal Confidentiality of Alcohol and Drug Abuse Patient Records regulations: The Federal rules restrict any use of the information to criminally investigate or prosecute any alcohol or drug abuse patient.[facility] CenterIn the event this information is protected by the Federal Confidentiality of Alcohol and Drug Abuse Patient Records regulations: The Federal rules restrict any use of the information to criminally investigate or prosecute any alcohol or drug abuse patient.[facility] CenterIn the event this information is protected by the Federal Confidentiality of Alcohol and Drug Abuse Patient Records regulations: The Federal rules restrict any use of the information to criminally investigate or prosecute any alcohol or drug abuse patient.[facility] CenterIn the event this information is protected by the Federal Confidentiality of Alcohol and Drug Abuse Patient Records regulations: The Federal rules restrict any use of the information to criminally investigate or prosecute any alcohol or drug abuse patient.[facility] CenterIn the event this information is protected by the Federal Confidentiality of Alcohol and Drug Abuse Patient Records regulations: The Federal rules restrict any use of the information to criminally investigate or prosecute any alcohol or drug abuse patient.[facility] CenterIn the event this information is protected by the Federal Confidentiality of Alcohol and Drug Abuse Patient Records regulations: The Federal rules restrict any use of the information to criminally investigate or prosecute any alcohol or drug abuse patient.[facility] CenterIn the event this information is protected by the Federal Confidentiality of Alcohol and Drug Abuse Patient Records regulations: The Federal rules restrict any use of the information to criminally investigate or prosecute any alcohol or drug abuse patient.[facility] CenterIn the event this information is protected by the Federal Confidentiality of Alcohol and Drug Abuse Patient Records regulations: The Federal rules restrict any use of the information to criminally investigate or prosecute any alcohol or drug abuse patient.[facility] CenterIn the event this information is protected by the Federal Confidentiality of Alcohol and Drug Abuse Patient Records regulations: The Federal rules restrict any use of the information to criminally investigate or prosecute any alcohol or drug abuse patient.[facility] CenterIn the event this information is protected by the Federal Confidentiality of Alcohol and Drug Abuse Patient Records regulations: The Federal rules restrict any use of the information to criminally investigate or prosecute any alcohol or drug abuse patient.[facility] CenterIn the event this information is protected by the Federal Confidentiality of Alcohol and Drug Abuse Patient Records regulations: The Federal rules restrict any use of the information to criminally investigate or prosecute any alcohol or drug abuse patient.[facility] CenterIn the event this information is protected by the Federal Confidentiality of Alcohol and Drug Abuse Patient Records regulations: The Federal rules restrict any use of the information to criminally investigate or prosecute any alcohol or drug abuse patient.[facility] CenterIn the event this information is protected by the Federal Confidentiality of Alcohol and Drug Abuse Patient Records regulations: The Federal rules restrict any use of the information to criminally investigate or prosecute any alcohol or drug abuse patient.[facility] CenterIn the event this information is protected by the Federal Confidentiality of Alcohol and Drug Abuse Patient Records regulations: The Federal rules restrict any use of the information to criminally investigate or prosecute any alcohol or drug abuse patient.[facility] CenterIn the event this information is protected by the Federal Confidentiality of Alcohol and Drug Abuse Patient Records regulations: The Federal rules restrict any use of the information to criminally investigate or prosecute any alcohol or drug abuse patient.[facility] CenterIn the event this information is protected by the Federal Confidentiality of Alcohol and Drug Abuse Patient Records regulations: The Federal rules restrict any use of the information to criminally investigate or prosecute any alcohol or drug abuse patient.[facility] CenterIn the event this information is protected by the Federal Confidentiality of Alcohol and Drug Abuse Patient Records regulations: The Federal rules restrict any use of the information to criminally investigate or prosecute any alcohol or drug abuse patient.[facility] CenterIn the event this information is protected by the Federal Confidentiality of Alcohol and Drug Abuse Patient Records regulations: The Federal rules restrict any use of the information to criminally investigate or prosecute any alcohol or drug abuse patient.[facility] CenterIn the event this information is protected by the Federal Confidentiality of Alcohol and Drug Abuse Patient Records regulations: The Federal rules restrict any use of the information to criminally investigate or prosecute any alcohol or drug abuse patient.[facility] CenterIn the event this information is protected by the Federal Confidentiality of Alcohol and Drug Abuse Patient Records regulations: The Federal rules restrict any use of the information to criminally investigate or prosecute any alcohol or drug abuse patient.[facility] CenterIn the event this information is protected by the Federal Confidentiality of Alcohol and Drug Abuse Patient Records regulations: The Federal rules restrict any use of the information to criminally investigate or prosecute any alcohol or drug abuse patient.[facility] CenterIn the event this information is protected by the Federal Confidentiality of Alcohol and Drug Abuse Patient Records regulations: The Federal rules restrict any use of the information to criminally investigate or prosecute any alcohol or drug abuse patient.[facility] CenterIn the event this information is protected by the Federal Confidentiality of Alcohol and Drug Abuse Patient Records regulations: The Federal rules restrict any use of the information to criminally investigate or prosecute any alcohol or drug abuse patient.[facility] CenterIn the event this information is protected by the Federal Confidentiality of Alcohol and Drug Abuse Patient Records regulations: The Federal rules restrict any use of the information to criminally investigate or prosecute any alcohol or drug abuse patient.[facility] CenterIn the event this information is protected by the Federal Confidentiality of Alcohol and Drug Abuse Patient Records regulations: The Federal rules restrict any use of the information to criminally investigate or prosecute any alcohol or drug abuse patient.[facility] CenterIn the event this information is protected by the Federal Confidentiality of Alcohol and Drug Abuse Patient Records regulations: The Federal rules restrict any use of the information to criminally investigate or prosecute any alcohol or drug abuse patient.[facility] CenterIn the event this information is protected by the Federal Confidentiality of Alcohol and Drug Abuse Patient Records regulations: The Federal rules restrict any use of the information to criminally investigate or prosecute any alcohol or drug abuse patient.[facility] Care Teams (unrecognized sec tion and content) [...] Status: Active Member Role Status Dates FUNMILAYO, [facility] Primary Care Provider Active Dr. Alexandro [...] Attending Provider, Emergency P rovider Active FUNMILAYO, [facility] Primary Care Provider Active Team Status: Inactive Member Role Status Dates FUNMILAYO, [facility] Primary Care Provider Active Dr. Rm Chirinos MD Attending Provider, Emergency Provi benjie Active Team Status: Inactive Member Role Status Dates FUNMILAYO, [facility] Primary Care Provider Active Dr. Edwin Scales MD Attending Provider, Emergency Provider Active Team Status: Inactive Member Role Status Dates FUNMILAYO, [facility] Primary Care Provider Active Dr. Olvin Ibarra DO Attending Provider, Emergency Provide r Active Team Status: Inactive Member Role Status Dates No Primary Care Physician Primary Care Provider Active Juan Marquez MD Attending Provider, Emergency Provid er Active Team Status: Inactive Member Role Status Dates Out of [facility] Doctor Primary Care Provider Active Dr. Lin Johansen MD Emergency Provider Active Team Status: Inactive Member Role Status Dates FUNMILAYO, [facility] Primary Care Provider Active Dr. Alexandro Garces MD Emergency Provider Active Dr. Vita Jefferson MD Admit Provider, Attending Prov ider Active Team Status: Active [facility] Active Team Status: Inactive Member Role Status Dates No Primary Care Physician Primary Care Provider Active Dr. Siddharth Herrera MD Attending Provider, Emergency Pr ovider Active Team Status: Inactive Member Role Status Dates FUNMILAYO, [facility] Primary Care Provider Active Dr. Rm Chirinos MD Emergency Provider Active Team Status: Inactive Member Role Status Dates FUNMILAYO, [facility] Primary Care Provider Active Dr. Edwin [...] Provider, Other Pro vider Active Dr. Ileana oLbo MD Attending Provider, Other Provid er Active [...] Dr. Ileana Lobo MD Attending Provider Active Showroom Salesperson Relationship Specialty Start Date End Date [facility] Sr. [address] [place] [address] PCP - General Family Practice 12/31/19 Latosha Johnson LSW Boat [employer] 12/10/14 Vamsi Cohen MD Primary Staff Physician Cardiology 11/13/18 Showroom Salesperson Relationship Specialty Start Date End Date [facility]. [address] [place] [address] PCP - General Family Practice 12/31/19 Latosha Johnson LSW Boat [employer] 12/10/14 Vamsi Cohen MD Primary Staff Physician Cardiology 11/13/18 Showroom Salesperson Relationship Specialty Start Date End Date [facility]. [address] [place], [place] PCP - General Family Practice 12/31/19 Latosha Johnson [employer] Boat Builder 12/10/14 Vamsi Cohen MD Primary Staff Physician Cardiology 11/13/18 Showroom Salesperson Relationship Specialty Start Date End Date [facility]. [address] [place], [place] PCP - General Family Practice 12/31/19 Latosha Johnson [facility] Boat Builder 12/10/14 Vamsi Cohen MD Primary Staff Physician Cardiology 11/13/18 Showroom Salesperson Relationship Specialty Start Date End Date [facility]. [address] [place], [place] PCP - General Family Practice 12/31/19 Latosha Johnson [employer] Boat [employer] 12/10/14 Vamsi Cohen MD Primary Staff Physician Cardiology 11/13/18 Showroom Salesperson Relationship Specialty Start Date End Date Dashawn Cain, PAIN MANAGEMENT NURSE PRACTITIONER.PRE PAROLE COUNSELING AIDE [address] [place], [place] PCP - General Family Practice 03/08/22 Latosha Johnson [employer] 12/10/14 Vamsi Cohen MD Primary Staff Physician Cardiology 11/13/18 Showroom Salesperson Relationship Specialty Start Date End Date , PAIN MANAGEMENT NURSE PRACTITIONER.PRE PAROLE COUNSELING AIDE [address] [place] [place] PCP - General Family Practice 03/08/22 JohnsonLatosha khan, [employer] Boat Builder 12/10/14 Vamsi Cohen MD Primary Staff Physician Cardiology 11/13/18 Showroom Salesperson Relationship Specialty Start Date End Date , PAIN MANAGEMENT NURSE PRACTITIONER.PRE PAROLE COUNSELING AIDE [address] [place] PCP - General Family Practice 03/08/22 JohnsonLatosha khan, [employer] Boat Builder 12/10/14 Vamsi Cohen MD Primary Staff Physician Cardiology 11/13/18 Showroom Salesperson Relationship Specialty Start Date End Date , PAIN MANAGEMENT NURSE PRACTITIONER.PRE PAROLE COUNSELING AIDE [address] [place], [place] PCP - General Family Practice 03/08/22 JohnsonLatosah khan, [employer] Boat Builder 12/10/14 Vamsi Cohen MD Primary Staff Physician Cardiology 11/13/18 Showroom Salesperson Relationship Specialty Start Date End Date , PAIN MANAGEMENT NURSE PRACTITIONER.PRE PAROLE COUNSELING AIDE [address] [place] [address] PCP - General Family Practice 03/08/22 Latosha Johnson, [facility] Boat Builder 12/10/14 Vamsi Cohen MD Primary Staff Physician Cardiology 11/13/18 Showroom Salesperson Relationship Specialty Start Date End Date Paul, PAIN MANAGEMENT NURSE PRACTITIONER.PRE PAROLE COUNSELING AIDE [address] [facility] [place] [facility] - General Family Practice 03/08/22 Latosha Johnson LSW Boat Builder 12/10/14 Vamsi Cohen MD Primary Staff Physician Cardiology 11/13/18 Showroom Salesperson Relationship Specialty Start Date End Date Paul, PAIN MANAGEMENT NURSE PRACTITIONER.PRE PAROLE COUNSELING AIDE [address] [place], [place] PCP - General Family Practice 03/08/22 Latosha Johnson [employer] Boat Builder 12/10/14 Vamsi Cohen MD Primary Staff Physician Cardiology 11/13/18 Showroom Salesperson Relationship Specialty Start Date End Date Paul, PAIN MANAGEMENT NURSE PRACTITIONER.PRE PAROLE COUNSELING AIDE [address] [place], [place] PCP - General Family Practice 03/08/22 Latosha Johnson [employer] Boat Builder 12/10/14 Vamsi Cohen MD Primary Staff Physician Cardiology 11/13/18 Showroom Salesperson Relationship Specialty Start Date End Date Dashawn, PAIN MANAGEMENT NURSE PRACTITIONER.PRE PAROLE COUNSELING AIDE [address] [place], [place] PCP - General Family Practice 03/08/22 Latosha Johnson [employer] Boat Builder 12/10/14 Vamsi Cohen MD Primary Staff Physician Cardiology 11/13/18 Showroom Salesperson Relationship Specialty Start Date End Date DelfinDashawn, PAIN MANAGEMENT NURSE PRACTITIONER.PRE PAROLE COUNSELING AIDE [address] [place], [place] PCP - General Family Practice 03/08/22 Latosha Johnson, [employer] 12/10/14 Vamsi Cohen MD Primary Staff Physician Cardiology 11/13/18 Showroom Salesperson Relationship Specialty Start Date End Date [facility] [address] [place], [place] PCP - General Family Medicine 12/31/19 03/07/22 Dashawn Cain, PAIN MANAGEMENT NURSE PRACTITIONER.PRE PAROLE COUNSELING AIDE [address] [place], [place] PCP - General Family Medicine 03/08/22 Latosha Johnson, [employer] Boat Builder 12/10/14 Vamsi Cohen MD Primary Staff Physician Cardiology 11/13/18 Showroom Salesperson Relationship Specialty Start Date End Date Dashawn Cain, PAIN MANAGEMENT NURSE PRACTITIONER.PRE PAROLE COUNSELING AIDE [address] [place], [place] PCP - General Family Medicine 03/08/22 Latosha Johnson, [facility] Boat Builder 12/10/14 Vamsi Cohen MD Primary Staff Physician Cardiology 11/13/18 Showroom Salesperson Relationship Specialty Start Date End Date Dashawn Cain, PAIN MANAGEMENT NURSE PRACTITIONER.PRE PAROLE COUNSELING AIDE [address] [place], [place] PCP - General Family Medicine 03/08/22 Latosha Johnson, [facility] Boat Builder 12/10/14 Vamsi Cohen MD Primary Staff Physician Cardiology 11/13/18 Showroom Salesperson Relationship Specialty Start Date End Date Dashawn Cain, PAIN MANAGEMENT NURSE PRACTITIONER.PRE PAROLE COUNSELING AIDE [address] [place] [address] PCP - General Family Medicine 03/08/22 Latosha Johnson [facility] Boat Builder 12/10/14 Vamsi Cohen MD Primary Staff Physician Cardiology 11/13/18 Showroom Salesperson Relationship Specialty Start Date End Date Paul, PAIN MANAGEMENT NURSE PRACTITIONER.PRE PAROLE COUNSELING AIDE [address] [place] [address] PCP - General Family Medicine 03/08/22 Latosha Johnson, [facility] Boat Builder 12/10/14 Vamsi Cohen MD Primary Staff Physician Cardiology 11/13/18 Showroom Salesperson Relationship Specialty Start Date End Date eliseoPaul, PAIN MANAGEMENT NURSE PRACTITIONER.PRE PAROLE COUNSELING AIDE [address] [place] [address] PCP - General Family Medicine 03/08/22 Latosha Johnson [facility] Boat Builder 12/10/14 Vamsi Cohen MD Primary Staff Physician Cardiology 11/13/18 Showroom Salesperson Relationship Specialty Start Date End Date Dashawn, PAIN MANAGEMENT NURSE PRACTITIONER.PRE PAROLE COUNSELING AIDE [address] [place] [address] PCP - General Family Medicine 03/08/22 Latosha Johnson, [facility] Boat Builder 12/10/14 Vamsi Cohen MD Primary Staff Physician Cardiology 11/13/18 Showroom Salesperson Relationship Specialty Start Date End Date eliseoDashawn, PAIN MANAGEMENT NURSE PRACTITIONER.PRE PAROLE COUNSELING AIDE [address] [place] [address] PCP - General Family Medicine 03/08/22 Latosha Johnson, [facility] Boat Builder 12/10/14 Vamsi Cohen MD Primary Staff Physician Cardiology 11/13/18 Showroom Salesperson Relationship Specialty Start Date End Date Dashawn Cain, PAIN MANAGEMENT NURSE PRACTITIONER.PRE PAROLE COUNSELING AIDE [address] [place] [address] PCP - General Family Medicine 03/08/22 Latosha Johnson, [facility] Boat Builder 12/10/14 Vamsi Cohen MD Primary Staff Physician Cardiology 11/13/18 Showroom Salesperson Relationship Specialty Start Date End Date Dashawn Cain, PAIN MANAGEMENT NURSE PRACTITIONER.PRE PAROLE COUNSELING AIDE [address] [facility] [place] [address] PCP - General Family Medicine 03/08/22 Latosha Johnson, [facility] Boat Builder 12/10/14 Vamsi Cohen MD Primary Staff Physician Cardiology 11/13/18 Showroom Salesperson Relationship Specialty Start Date End Date Dashawn Cain, PAIN MANAGEMENT NURSE PRACTITIONER.PRE PAROLE COUNSELING AIDE [address] [place] [address] PCP - General Family Medicine 03/08/22 Latosha Johnson [facility] Boat Builder 12/10/14 Vamsi Cohen MD Primary Staff Physician Cardiology 11/13/18 Showroom Salesperson Relationship Specialty Start Date End Date Dashawn Cain, PAIN MANAGEMENT NURSE PRACTITIONER.PRE PAROLE COUNSELING AIDE PCP - General Family Medicine 03/08/22 Latosha Johnson, [facility] Boat Builder 12/10/14 Vamsi Cohen MD Primary Staff Physician Cardiology 11/13/18 Showroom Salesperson Relationship Specialty Start Date End Date Dashawn Cain, PAIN MANAGEMENT NURSE PRACTITIONER.[facility] PCP - General Family Medicine 03/08/22 Latosha Johnson, [employer] Boat Builder 12/10/14 Vamsi Cohen MD Primary Staff Physician Cardiology 11/13/18 Showroom Salesperson Relationship Specialty Start Date End Date Latosha Johnson, [employer] Boat Builder 12/10/14 Vamsi Cohen MD Primary Staff Physician Cardiology 11/13/18 Showroom Salesperson Relationship Specialty Start Date End Date Vivi Smith MD [address] [place] [address] PCP - General Family Medicine 12/08/22 Latosha Johnson LSW Boat Builder 12/10/14 Vamsi Cohen MD Primary Staff Physician Cardiology 11/13/18 Showroom Salesperson Relationship Specialty Start Date End Date Vivi Smith MD [address] [place] [address] PCP - General Family Medicine 12/08/22 Latosha Johnson LSW Boat Builder 12/10/14 Vamsi Cohen MD Primary Staff Physician Cardiology 11/13/18 Showroom Salesperson Relationship Specialty Start Date End Date Vivi Smith MD [address] [place] [address] PCP - General Family Medicine 12/08/22 Latosha Johnson LSW Boat Builder 12/10/14 Vamsi Cohen MD Primary Staff Physician Cardiology 11/13/18 Showroom Salesperson Relationship Specialty Start Date End Date Vivi Smith MD [facility] [place] [address] PCP - General Family Medicine 12/08/22 Latosha Johnson, [facility] Boat Builder 12/10/14 Vamsi Cohen MD Primary Staff Physician Cardiology 11/13/18 Showroom Salesperson Relationship Specialty Start Date End Date Vivi Smith MD [address] [place] [address] PCP - General Family Medicine 12/08/22 Latosha Johnson, [facility] Boat Builder 12/10/14 Vamsi Cohen MD Primary Staff Physician Cardiology 11/13/18 Showroom Salesperson Relationship Specialty Start Date End Date Vivi Smith MD [address] [place] [address] PCP - General Family Medicine 12/08/22 Latosha Johnson, [facility] Boat Builder 12/10/14 Vamsi Cohen MD Primary Staff Physician Cardiology 11/13/18 Showroom Salesperson Relationship Specialty Start Date End Date Vivi Smith MD [address] [place] [address] PCP - General Family Medicine 12/08/22 Latosha Johnson, [facility] Boat Builder 12/10/14 Vamsi Cohen MD Primary Staff Physician Cardiology 11/13/18 Showroom Salesperson Relationship Specialty Start Date End Date Vivi Smith MD [address] [place] [address] [place] [address] PCP - General Family Medicine 12/08/22 Latosha Johnson, [employer] Boat Builder 12/10/14 Vamsi Cohen MD Primary Staff Physician Cardiology 11/13/18 Showroom Salesperson Relationship Specialty Start Date End Date RhetteliseoDashawn, PAIN MANAGEMENT NURSE PRACTITIONER.[facility] PCP - General Family Medicine 03/08/22 11/06/22 Vivi Smith MD [facility] [place] [address] PCP - General Family Medicine 12/08/22 Latosha Johnson, [employer] Boat Builder 12/10/14 Vamsi Cohen MD Primary Staff Physician Cardiology 11/13/18 Showroom Salesperson Relationship Specialty Start Date End Date Vivi Smith MD [address] [place] [address] PCP - General Family Medicine 12/08/22 Latosha Johnson, [employer] Boat Builder 12/10/14 Vamsi Cohen MD Primary Staff Physician Cardiology 11/13/18 Showroom Salesperson Relationship Specialty Start Date End Date Vivi Smith MD [facility] [place] [address] PCP - General Family Medicine 12/08/22 Latosha Johnson, [employer] Boat Builder 12/10/14 Vamsi Cohen MD Primary Staff Physician Cardiology 11/13/18 Showroom Salesperson Relationship Specialty Start Date End Date No, Physician [facility] PCP - General 03/20/23 Team Status: Active Member Role Status Dates No Primary Care Physician Primary Care Provider Active Dr. Lin Johansen MD Emergency Provider Active Dr. David Smith MD Admit Provider, Attending Provider Active Showroom Salesperson Relationship Specialty Start Date End Date Alfredo Mccullough MD [facility] [place] [address] PCP - General 01/18/21 Team Status: Inactive Member Role Status Dates Dr. Greg Philip DO Attending Provider, Emergency P neida Active No Primary Care Physician Primary Care Provider Active Team Status: Inactive Member Role Status Dates No Primary Care Physician Primary Care Provider Active Dr. Marc Carl DO Emergency Provider Active Showroom Salesperson Relationship Specialty Start Date End Date Vivi Smith MD [address] [place] [address] PCP - General Family Medicine 12/08/22 Latosha Johnson [facility] Boat Builder 12/10/14 Vamsi Cohen MD Primary Staff Physician [...] DO Admit Provider, Attending Pr ovider Active Showroom Salesperson Relationship Specialty Start Date End Date Vivi Smith MD [address] [place] [address] PCP - General Family Medicine 12/08/22 Latosha Johnson, [employer] Boat Builder 12/10/14 Vamsi Cohen MD Primary Staff Physician Cardiology 11/13/18 Showroom Salesperson Relationship Specialty Start Date End Date Gracie Godoy [address] [place] [address] PCP - General 08/15/23 Showroom Salesperson Relationship Specialty Start Date End Date Vivi Smith MD [address] [place] [address] PCP - General Family Medicine 12/08/22 Latosha Johnson, [facility] Boat Builder 12/10/14 Vamsi Cohen MD Primary Staff Physician Cardiology 11/13/18 Showroom Salesperson Relationship Specialty Start Date End Date Vivi Smith MD [address] [place] [address] PCP - General Family Medicine 12/08/22 Latosha Johnson, [facility] Boat Builder 12/10/14 Vamsi Cohen MD Primary Staff Physician Cardiology 11/13/18 Showroom Salesperson Relationship Specialty Start Date End Date Vivi Smith MD [address] [place] [address] [phone] PCP - General Family Medicine 12/08/22 Latosha Johnson, MICHELLE Boat Builder 12/10/14 Vamsi Cohen MD Primary Staff Physician Cardiology 11/13/18 Kyara Luis, coater slateCoupler 10/12/23 Team Status: Active Member Role Status Dates SARAH MELLO Primary Care Provider Active Dr. Alexandro Garces MD Emergency Provider Active Dr. Vita Jefferson MD Admit Provider, Attending Prov ider Active Showroom Salesperson Relationship Specialty Start Date End Date Vivi Smith MD [address] [place] [address] PCP - General Family Medicine 12/08/22 Latosha Johnson LSW Boat Builder 12/10/14 Vamsi Cohen MD Primary Staff Physician Cardiology 11/13/18 Kyara Luis, coater slateCoupler 10/12/23 Kyara Luis, coater slate Healthcare Economics Manager 10/19/23 Showroom Salesperson Relationship Specialty Start Date End Date Gracie Godoy [facility] [address] [place] [address] PCP - General 08/15/23 Team Status: Inactive Member Role Status Dates Out of Town Doctor Primary Care Provider Active Dr. Lin Johansen MD Attending Provider, Emergency Provider Active Team Status: Inactive Member Role Status Dates Out of Town Doctor Primary Care Provider Active Ed Physician Provider Emergency Provider Active Showroom Salesperson Relationship Specialty Start Date End Date Vivi Smith MD [address] [place] [address] PCP - General Family Medicine 12/08/22 Latosha Johnson, MICHELLE Boat Builder 12/10/14 Vamsi Cohen MD Primary Staff Physician Cardiology 11/13/18 Kyara Luis, coater slateCoupler 10/12/23 Showroom Salesperson Relationship Specialty Start Date End Date [facility] [address] [place] [address] PCP - General 08/15/23 Showroom Salesperson Relationship Specialty Start Date End Date [facility] [address] [place] [address] PCP - General 08/15/23 Showroom Salesperson Relationship Specialty Start Date End Date Vivi Smith MD [address] [place] [address] PCP - General Family Medicine 12/08/22 Latosha Johnson, [employer] Boat Builder 12/10/14 Vamsi Cohen MD Primary Staff Physician Cardiology 11/13/18 Kyara Luis, coater slateCoupler 10/12/23 Showroom Salesperson Relationship Specialty Start Date End Date Vivi Smith MD [address] [place] [address] PCP - General Family Medicine 12/08/22 Latosha Johnson LSW Boat Builder 12/10/14 Vamsi Cohen MD Primary Staff Physician Cardiology 11/13/18 Kyara Luis, coater slateCoupler 10/12/23 Showroom Salesperson Relationship Specialty Start Date End Date Vivi Smith MD [address] [place] [address] PCP - General Family Medicine 12/08/22 Latosha Johnson LSW Boat Builder 12/10/14 Vamsi Cohen MD Primary Staff Physician Cardiology 11/13/18 Kyara Luis, coater slateCoupler 10/12/23 Showroom Salesperson Relationship Specialty Start Date End Date Vivi Smith MD [address] [place] [address] PCP - General Family Medicine 12/08/22 Latosha Johnson LSW Boat Builder 12/10/14 Vamsi Cohen MD Primary Staff Physician Cardiology 11/13/18 Kyara Luis, coater slateCoupler 10/12/23 Showroom Salesperson Relationship Specialty Start Date End Date [facility] [address] [place] [address] PCP - General 08/15/23 Showroom Salesperson Relationship Specialty Start Date End Date [facility] [address] [place] [address] PCP - General 08/15/23 Showroom Salesperson Relationship Specialty Start Date End Date Vivi Smith MD [address] [place] [address] PCP - General Family Medicine 12/08/22 Latosha Johnson LSW Boat Builder 12/10/14 Vamsi Cohen MD Primary Staff Physician Cardiology 11/13/18 Kyara Luis, coater slateCoupler 10/12/23 Showroom Salesperson Relationship Specialty Start Date End Date Vivi Smith MD [address] [place] [address] PCP - General Family Medicine 12/08/22 Latosha Johnson LSW Boat Builder 12/10/14 Vamsi Cohen MD Primary Staff Physician Cardiology 11/13/18 Kyara Luis, coater slateCoupler 10/12/23 Showroom Salesperson Relationship Specialty Start Date End Date Vivi Smith MD [address] [place] [address] PCP - General Family Medicine 12/08/22 Latosha Johnson [facility] Boat Builder 12/10/14 Vamsi Cohen MD Primary Staff Physician Cardiology 11/13/18 Kyara Luis coater slateCoupler 10/12/23 Showroom Salesperson Relationship Specialty Start Date End Date Vivi Smith MD [address] [place] [address] PCP - General Family Medicine 12/08/22 Latosha Johnson [facility] Boat Builder 12/10/14 Vamsi Cohen MD Primary Staff Physician Cardiology 11/13/18 Kyara Luis, coater slateCoupler 10/12/23 Showroom Salesperson Relationship Specialty Start Date End Date Vivi Smith MD [address] [place] [address] PCP - General Family Medicine 12/08/22 Latosha Johnson [employer] Boat Builder 12/10/14 Vamsi Cohen MD Primary Staff Physician Cardiology 11/13/18 Kyara Luis, coater slateCoupler 10/12/23 Showroom Salesperson Relationship Specialty Start Date End Date Vivi Smith MD [address] [place] [address] PCP - General Family Medicine 12/08/22 Latosha Johnson, [employer] Boat Builder 12/10/14 Vamsi Cohen MD Primary Staff Physician Cardiology 11/13/18 Kyara Luis, coater slateCoupler 10/12/23 Showroom Salesperson Relationship Specialty Start Date End Date Alfredo Mccullough MD [address] [place] [address] [phone] PCP - General 01/18/21 Showroom Salesperson Relationship Specialty Start Date End Date Alfredo Mccullough MD [address] [place] [address] [phone] PCP - General 01/18/21 Showroom Salesperson Relationship Specialty Start Date End Date Vivi Smith MD [address] [place] [address] PCP - General Family Medicine 12/08/22 Latosha Johnson LSW Boat Builder 12/10/14 Vamsi Cohen MD Primary Staff Physician Cardiology 11/13/18 Kyara Luis, coater slateCoupler 10/12/23 Showroom Salesperson Relationship Specialty Start Date End Date Vivi Smith MD [address] [place] [address] PCP - General Family Medicine 12/08/22 Latosha Johnson LSW Boat Builder 12/10/14 aVmsi Cohen MD Primary Staff Physician Cardiology 11/13/18 Kyara Luis, coater slateCoupler 10/12/23 Showroom Salesperson Relationship Specialty Start Date End Date Vivi Smith MD [address] [place] [address] PCP - General Family Medicine 12/08/22 Latosha Johnson, [employer] Boat Builder 12/10/14 Vamsi Cohen MD Primary Staff Physician Cardiology 11/13/18 Kyara Luis coater slateCoupler 10/12/23 Showroom Salesperson Relationship Specialty Start Date End Date Vivi Smith MD [address] [place], [place] [phone] PCP - General Family Medicine 12/08/22 Latosha Johnson LSW Boat Builder 12/10/14 Vamsi Cohen MD Primary Staff Physician Cardiology 11/13/18 Kyara Luis coater slateCoupler 10/12/23 Showroom Salesperson Relationship Specialty Start Date End Date Vivi Smith MD [address] [place] [address] PCP - General Family Medicine 12/08/22 Latosha Johnson LSW Boat Builder 12/10/14 Vamsi Cohen MD Primary Staff Physician Cardiology 11/13/18 Kyara Luis coater slateCoupler 10/12/23 Showroom Salesperson Relationship Specialty Start Date End Date Vivi Smith MD [address] [place] [address] PCP - General Family Medicine 12/08/22 Latosha Johnson, MICHELLE Boat Builder 12/10/14 Vamsi Cohen MD Primary Staff Physician Cardiology 11/13/18 Kyara Luis, coater slateCoupler 10/12/23 Showroom Salesperson Relationship Specialty Start Date End Date Vivi Smith MD [address] [place] [address] PCP - General Family Medicine 12/08/22 Latosha Johnson [facility] Boat Builder 12/10/14 Vamsi Cohen MD Primary Staff Physician Cardiology 11/13/18 Kyara Luis, coater slateCoupler 10/12/23 Showroom Salesperson Relationship Specialty Start Date End Date [facility] [address] [place] [address] PCP - General 08/15/23 Showroom Salesperson Relationship Specialty Start Date End Date [facility] [address] [place] [address] PCP - General 08/15/23 Reason for Visit [...] Referred By Contac t Referred To Contact PROPAGATOR Diagnoses STD exposure ROCEPHIN INJECTION - GONORRHEA Procedures INJECTION Phoebe, PAIN MANAGEMENT NURSE PRACTITIONER.PRE PAROLE COUNSELING AIDE [address] [place] [address] Phoebe, PAIN MANAGEMENT NURSE PRACTITIONER.PRE PAROLE COUNSELING AIDE [address] [place] [id number] Referral ID Status Reason Start Date Expiration Date V isits Requested Visits Authorized [id number] Closed Benefit Check 05/10/2022 08/27/2022 1 1 [...] Expiration Date Visits Re quested Visits Authorized [id number] 1 1 Reason Onset Date Comments Med Refill 05/02/2023 Reason Comments High Blood Sugar Reason Onset Date Comments Transition Of Care 08/15/2023 Reason Onset Date Comments Coupler Chronic Care 09/29/2023 Reason Onset Date Comments Refill Request 09/21/2023 Reason Comments Forms DME: CCS for pump gleason pplies Reason Onset Date Comments Coupler Chronic Care 10/12/2023 Reason Onset Date Comments Transition Of Care 10/19/2023 Message Reason Onset Date Comments Transition Of Care 10/20/2023 Reason Onset Date Comments Transition Of Care 10/27/2023 Reason Onset Date Comments Transition Of Care 11/03/2023 Reason Onset Date Comments Transition Of Care 11/10/2023 Reason Comments Psoriasis (PKN) Reason Onset Date Comments Coupler Chronic Care 12/15/2023 Reason Onset Date Comments [...] DSME MEDICAL NUTRITION ASSMT&IVNTJ INDIV EACH 15 MS MEDICAL NUTRITION ASSMT&IVNTJ INDIV EACH 15 MS MEDICAL NUTRITION ASSMT&IVNTJ INDIV EACH 15 MS MEDICAL NUTRITION ASSMT&IVNTJ INDIV EACH 15 MS Kvng Lewis MD [address] [place] [address] Referral ID Status Reason Start Date Expiration Date V isits Requested Visits Authorized [id number] Closed PCP Requested Referral 03/12/2024 03/12/2025 1 [...] Purcell RN) 0730 (Not Given - Provider: Oamri Bradley, RN - Reason: Patient/family refused)1130 (Not [...] PLACED TUBE OR TUBE less than 14 Vietnamese. To administer dissolved tablet(s) mix with 4 [...] 1 dose 2324 (Given - Provider: Liang Boothe, STIVEN) sodium chloride (PF) (NS) flush 5 [...] 1132 1927 (Given - Provider: Liang Boothe, STIVNE) iopamidoL (ISOVUE-370) 370 mg iodine /mL (76 [...] - Provider: Sixto Mercado RN)2307 (Return to [facility] - Provider: Liang Boothe RN) promethazine (PHENERGAN) suppository 12.5 mg 12.5 mg, Rectal, Every 6 hours PRN, nausea, vomiting, Starting on Mon03/21/23 at 1006 sodium chloride (PF) (NS) 0.9 % contrast line flush 10 mL (COMPLETED) 10 mL, Intravenous, Once in imaging, contrast, Per equipment processor (Radiology) for line patency check prior to contrast administration, Starting on Mon03/20/23 at 0551, For 1 dose 0806 (Given - Provider: Kaylyn Alvarado, TECHNOLOGIST) sodium chloride (PF) (NS) 0.9 % contrast line flush 80 mL (COMPLETED) 80 mL, Intravenous, Once in imaging, contrast, Per equipment processor (Radiology), Starting on Mon03/20/23 at 0551, For [...] BE BASED ON THE PRIMARY CLINICAL RECORDS. [employer] provides no warranty or guarantee of the accuracy or completeness of information in this document.
--- NOTE | 2025-05-03 20:09 | PCM.HP.STD ---
HPI - General General Date of Admission: 05/03/25 Date of Service: 05/03/25 Chief Complaint: Nausea, vomiting, concern she is in DKA HPI Narrative THEODORE VILLA, is a 29-year-old female with a history of psoriasis, GERD, type 1 diabetes with recurrent episodes of DKA, marijuana use who presented to [facility] ED 05/03/2025 with elevated blood glucose. Reports blood sugar was about 150 [place], [place] the [place] she was not feeling well and started vomiting around 3 PM and she was worried she was going to DKA. No longer has insulin pump because it kept occluding but reports compliance with her insulin. In the ED temp 98.4, heart rate of 103, blood pressure 140/106, respiratory rate 18 pulse ox 97% on room air. [id number] glucose 287. CBC with white count of 16.4, BMP with a bicarb of 12.8, gap of 22, beta hydroxybutyrate 3.2, magnesium 2.1, UA with glucose and 150 ketones. Hospitalist contacted for admission for DKA. Patient evaluated bedside. Patient reports history as above, she was feeling in her usual health and then developed nausea and vomiting was concerned she went into DKA so she came here, reports she has developed diarrhea and abdominal pain which she gets when she has been DKA, denies any other new or acute complaints [facility] Medical History (Updated 05/03/25 @ 19:[address] Loki Soria, DO) Borderline personality disorder Cardiology follow-up encounter delivery delivered Compensated metabolic acidosis Depression Diabetes mellitus with hyperglycemia Diabetic gastroparesis Diabetic keto-acidosis DKA, type 1 Dysuria Electronic cigarette use Gastroparesis History of echocardiogram History of marijuana use History of stress test Hx of diabetic gastroparesis Hx of diabetic gastroparesis Hypokalemia Insulin dependent diabetes mellitus Intractable abdominal pain Intractable cyclical vomiting with nausea Intractable nausea and vomiting Intractable nausea and vomiting Intractable vomiting Kidney disease Kidney stones Leukocytosis Leukocytosis Major depressive disorder, recurrent severe without psychotic features Marfan syndrome Marijuana use Metabolic acidosis Metabolic acidosis Panic disorder PTSD (post-traumatic stress disorder) Smoker Substance abuse Syncope Type 1 diabetes Type 1 diabetes UTI (urinary tract infection) Vomiting Wears glasses Home Medications ?Medication ?Instructions ?Recorded ?Last Taken ?Type pen needle, diabetic 29 gauge x #100 ea 08/10/23 Unknown Rx 1/2 (Ultra-Thin II Insulin Pen [place]) risankizumab-rzaa 150 mg/mL 150 mg subcut .[id number] PSORIASIS 02/07/24 02/03/25 History subcutaneous pen injector (Skyrizi) Insulin Basal Pump (Pt's Own) 1.8 unit subcut UD diabetes ##0 06/11/24 03/05/25 Rx [Pump, Basal] albuterol sulfate 90 mcg/actuation 1 - 2 puff inhalation Q4H PRN PRN 08/01/24 Unknown Rx aerosol inhaler (Ventolin HFA) Wheezing ##1 doxepin 6 mg tablet 6 mg PO QHS insomnia 10/18/24 03/04/25 History promethazine 25 mg tablet 50 mg PO Q6H PRN nausea and 10/18/24 Unknown History vomiting quetiapine 50 mg tablet,extended 50 mg PO QHS mood 10/18/24 03/04/25 History release 24 hr cholecalciferol (vitamin D3) 1,250 1,250 mcg PO QWEEK 12/14/24 02/26/25 History mcg (50,000 unit) capsule plecanatide 3 mg tablet (Trulance) 3 mg PO DAILY 12/14/24 03/02/25 History haloperidol 5 mg tablet 5 mg PO TID PRN nausea and 12/16/24 03/04/25 Rx vomiting #20 tabs gabapentin 300 mg capsule 600 mg PO BID 01/08/25 03/04/25 History insulin lispro 100 unit/mL See Rx Instructions .Route 01/26/25 03/05/25 Rx subcutaneous solution (Humalog .COMPLEX #10 mL U-100 Insulin) prochlorperazine maleate 10 mg 10 mg PO TID PRN PRN 03/03/25 Unknown History tablet nausea/vomiting pantoprazole 40 mg tablet,delayed 40 mg PO QDAY garrett #90 tabs 03/31/25 Unknown Rx release Allergy/AdvReac Type Severity Reaction Status Date / Time adhesive tape Allergy Intermediate Rash Verified 05/03/25 17:11 cephalexin (From Keflex) Allergy Intermediate yeast Verified 05/03/25 17:11 infection morphine Allergy Intermediate Rash Verified 05/03/25 17:11 oxycodone (From Percocet) Allergy Intermediate Rash Verified 05/03/25 17:11 ondansetron AdvReac I BLACK Verified 05/03/25 17:11 OUT AND LOSE CONTROL OF MY BLADDER Family History Mother Anxiety and depression Bipolar disorder PCOS (polycystic ovarian syndrome) Father Valvular heart disease Surgical History H/O aortic root repair H/O tubal ligation History of loop recorder Hx of appendectomy Hx of eye surgery Social History household members: spouse Smoking Status: Current every day smoker tobacco type: e-cigarettes Electronic Cigarette Use: with nicotine alcohol intake: never substance use type: marijuana ROS ROS Narrative General: Feels hot HENT: Denies headache, denies stuffy nose, denies sore throat EYES: Denies changes in vision Resp: Denies cough, denies shortness of breath Cardiac: Denies chest pain GI: Abdominal pain, diarrhea, nausea or vomiting : Denies changes in urination Extremity: Denies swelling MSK: Feels generally unwell Neuro: Denies any numbness/tingling Heme: Denies any bleeding or bruising Skin: Denies rashes Psychiatric: No complaints voiced Vital Signs Vital Signs Vital Signs: 05/03/25 17:09 05/03/25 17:40 05/03/25 20:01 Temperature 98.4 F Temperature Source Oral Pulse Rate 103 H 69 Respiratory Rate 18 21 H Respiratory Effort Normal Non-Labored Blood Pressure 140/106 H 114/71 Blood Pressure Mean 117 85 Pulse Ox 97 98 Oxygen Delivery Method Room Air Room Air Weight Weight: 86.3 kg Body Mass Index (BMI) 28.0 Physical Exam Narrative General: Alert, oriented, appears uncomfortable HEENT: Atraumatic, normocephalic Eyes: Anicteric, normal conjunctiva, extraocular movements grossly intact Neck: Supple Respiratory: Clear to auscultation bilaterally, normal respiratory effort Cardiovascular: Low-grade sinus tachycardia GI: Soft, nondistended, no guarding or rigidity Extremities: No significant pitting edema Musculoskeletal: Moving all extremities Neuro: No overt focal neurological deficits Skin: No rashes appreciated Psych: Patient uncomfortable and does not feel well but at times to be cooperative Results Lab / Micro Data 05/03/25 18:30 05/03/25 18:30 Labs: Laboratory Results - last 24 hr 05/03/25 18:30: WBC 16.4 H, RBC 4.90, Hgb 14.5, Hct 42.6, MCV 86.9, MCH 29.6, MCHC 34.0, RDW Std Deviation 42.6, RDW Coeff of Joyce 13.3, Plt Count 189, MPV 12.1 H, Immature Gran % (Auto) 0.500, Neut % (Auto) 85.7 H, Lymph % (Auto) 10.4 L, [place] % (Auto) 3.0, Eos % (Auto) 0.0, Baso % (Auto) 0.4, Absolute Neuts (auto) 14.0 H, Absolute Lymphs (auto) 1.71, Nucleated RBC % 0, Sodium 133, Potassium 4.2, Chloride 99, Carbon Dioxide 12.8 L, Anion Gap 22 H, BUN 17, Creatinine 0.80, Est GFR (MDRD) Non-Af 102, BUN/Creatinine Ratio 21.6 H, Glucose 314 H, Calcium 9.7, Magnesium 2.1, b-Hydroxybutyric mmol/L 3.2 H 05/03/25 18:31: Urine Color Yellow, Urine Clarity Clear, Urine pH 6.0, Ur Specific [place] 1.025, Urine Protein 100 H, Urine Glucose (UA) 1000 H, Urine Ketones 150 A*, Urine Occult Blood 25 H, Urine Nitrite Negative, Urine Bilirubin Negative, Urine Urobilinogen Normal, Ur Leukocyte Esterase Negative, Urine RBC 0 SEEN, Urine WBC 0 SEEN, Ur Squamous Epith Cells 5-10 SEEN, Urine Bacteria RARE, Urine Mucus 0 SEEN 05/03/25 18:40: POC Glucose 287 H 05/03/25 19:47: POC Glucose 303 H Assessment & Plan Assessment/Plan (1) DKA, type 1: PLAN: Plan #DKA in setting of chronic type 1 diabetes -Serum glucose in ED 287, anion gap 22 with bicarb of 12.8 on BMP -Urine ketones positive -Serum beta hydroxybutyrate 3.2 -Admit to intensive care unit -N.p.o. -Insulin drip started -Aggressive fluid hydration -Glucose checks and DKA protocol -BMP every 4H -Replace electrolytes per protocol -I's and O's -A1c in the a.m. -When serum glucose is <250 mg/dl, change IV fluids to D5%1/2NS at 150 ml/hr and continue insulin drip as per nomogram # Nausea vomiting - Suspect secondary to DKA, this is typically patient's presenting complaint - IV antiemetics - Supportive care - Address underlying issue - IV fluids #GERD -Continue PPI # Psoriasis -Continue outpatient follow-up #Depression/anxiety -Continue home medications #DVT ppx: SCDs Ileana Lobo MD Charges/Coding Visit Charges Inpatient E&M: 30836 Init Hosp L2
[2025-05-03] MEDS: Insulin Lispro 100 UNIT in 0.9% Normal Saline (100mL Bag) 99 ML CONT INF (20:15)
--- OUTSIDE RECORDS SUMMARY | 2025-05-03 21:02 | XMS RPT_ITS | CCD ---
Author Organization [facility] Care Team Providers Care Java Mobile Developer Name Role Phone MEDICAL, CLINIC Unavailable Unavailable TEACH, MTS LUCY Unavailable Unavailable VAMSI MARURFO Unavailable Unavailable MEDICAL, CLINIC Unavailable Unavailable Latosha Castro Unavailable Unavailab Vamsi Zaidi MD Unavailable [facility] Primary Care Provi benjie PHYSICIAN, PATIENT UNSURE Primary Care Physician Unavailable Kamwesa POT MAKER.Dashawn MALAVE Primary Care Provider Vamsi Cohen MD Unavailable Kamwesa POT MAKER.Dashawn MALAVE Primary Care Provider Vamsi Cohen MD Unavailable [facility] Care Provi benjie Kamwesa POT MAKER.Dashawn MALAVE Primary Care Provider Latosha Castro Unavailable Unavailab Vamsi Zaidi MD Unavailable [phone] Kamwesa POT MAKER.Dashawn MALAVE Primary Care Provider Kamwesa POT MAKER.Dashawn MALAVE Primary Care Provider Vivi Smith MD Primary Care Provider Kamwesa POT MAKER.Dashawn MALAVE Primary Care Provider No, Physician Primary [...] Attending Provider Dr. Ileana Lobo Other Provider [facility] Primary Care Provider Unav ailDr. Lul Ferrell Emergency Provider Dr. Vamsi Duvall Admit Provider Unavailabl e Dr. Vamsi Duvall Other Provider Unavailabl e Dr. Dangelo Encarnacion Attending Provider [phone] Dr. Dangelo Encarnacion Other Provider Care Physician, [...] SMITH, VIVI BARAHONA Attending Unavailabl e [facility], [facility] BARAHONA Primary Care Unavailabl e SMITH, AHTNAngel BARAHONA Primary Care Unavailabl e SMITH, AHTNAngel KHPATRICIO Primary Care Unavailabl e CAMILO CENTENO [...] Unavailabl e JESSICA GUERRERO Attending Unavailable [facility] Primary Care UnavailKVNG Bush Attending Unavailable [facility] Primary Care Unavailabl e JASON PAREDES Attending Unavailable SMITH, AHTND [facility] Primary Care Unavailabl e JASON PAREDES Referring Unavailable SMITH, [facility] Primary Care Unavailabl e JESSICA GUERRERO Attending Unavailable KVNG LEWIS Referring Unavailable SMITH, [facility] Primary Care Unavailabl e LETICIA HYLTON Attending Unavailable SMITH, [facility] Primary Care Unavailabl e MISHEL ORTEZ Attending Unavailable [facility] Primary Care Unavailable Marc Carl Attending Unavailable Care Physician, No Primary Primary Care Unava ilable Vamsi Duvall Admitting Unavailable Estevan Davis Attending Unavailable Care Physician, No Primary Primary Care Unava ilable Vamsi Duvall Consulting Unavailable Ileana Lobo Consulting Unavailable Ileana Lobo Admitting Unavailable Dangelo Encarnacion Attending Unavailable Beam VSC, [facility] Primary Care Unavailable Beam VSC, [facility] Primary Care Unavailable Vita Jefferson Attending Unavailable [...] Unavailable David Smith Consulting Unavailable Beam VS, [facility] Primary Care Unavailable David Smith Admitting Unavailable Marc Carl Referring Unavailable Estevan Davis Attending Unavailable Vita Jefferson Consulting Unavailable Care Physician, No Primary Primary Care Unava ilable Chirinos, Rm Attending Unavailable Dangelo Encarnacion Admitting Unavailable Beam VSC, [facility] Primary Care Unavailable Greg Mon Attending Unavailable [...] Consulting Unavailable John Knapp Attending Unavailable ybarger [facility] Attending [facility] Care Physician, No Primary Primary Care Unava ilable Allergies Allergy Classification Reported Allergen(s) Allergy Type Date of Onset Reaction(s) Facility Acetaminophen / oxyCODONE (2 sources) Acetaminophen / oxyCODONE Drug Allergy 4 Itching, Rash, Intolerance [facility] Adhesive Tape (1 source) Adhesive Tape Substance Allergy 4 Rash [facility] Cephalosporins (antibiotic) (2 sources) Cephalexin Drug Allergy 4 Other: See Comments [facility] NSAIDs (1 source) Indomethacin Drug Allergy 4 Rash [facility] Ondansetron (2 sources) Ondansetron Drug Allergy 5 Other: See Comments [facility] Opioid Agonists (2 sources) Morphine Drug Allergy 4 Itching, Rash [facility] (20 sources) Acetaminophen / oxyCODONE; Translations: [acetaminophen-ox ycodone] Drug Allergy 4 Rash, Intolerance, Itching [facility] (20 sources) Adhesive Tape; Translations: [ADHESIVE TAPE (ROSINS)] Allergy to substance 4 Rash [facility] (20 sources) Cephalexin; Translations: [cephalexin] Drug Allergy 4 Other: See Comments, Urinary tract infectious disease (disorder) [facility] Work Phone: (20 sources) Morphine; Translations: [morphine] Drug Allergy 4 Rash, Itching [facility] (20 sources) Ondansetron; Translations: [ONDANSETRON HCL (PF)] Drug Allergy 5 Other: See Comments, Other (See Comments) [facility] (1 source) Adhesive Tape Propensity to adverse reactions to substance Redness [facility] (20 sources) Ondansetron; Translations: [ondansetron] Drug Allergy 5 I BLACK OUT AND LOSE CONTROL OF MY BLADDER [facility] (20 sources) Adhesive agent; Translations: [ADHESIVE] Drug Allergy 3 Rash [facility] (20 sources) Indomethacin; Translations: [INDOMETHACIN] Drug Allergy 4 [facility] (2 sources) Adhesive Tape-Silicones; Translations: [ADHESIVE TAPE-SILICONES] Propensity to adverse reactions to drug 3 [facility] (1 source) Ondansetron; Translations: [ONDANSETRON HCL] Drug Allergy 3 [facility] (2 sources) Acetaminophen Drug Allergy 3 [facility] (15 sources) Adhesive Tape; Translations: [adhesive tape] Allergy to substance 3 [facility] (15 sources) oxyCODONE Drug Allergy 3 Itching, Rash [facility] (1 source) Acetaminophen Drug Allergy 3 Itching, Rash [facility] (1 source) Wound Dressing Adhesive Drug Allergy 3 [facility] (1 source) Cephalexin Drug Allergy 5 [facility] (1 source) Morphine Drug Allergy 5 [facility] (1 source) Ondansetron Drug Allergy 5 [facility] (1 source) oxyCODONE Drug Allergy 5 [facility] Repository Medications Current Medications Medication Drug Class(es) Dates Sig (Normalized) Sig (Original) acetaminophen 325 mg / HYDROcodone bitartrate 5 mg oral tablet (2 sources) Opioid Agonist Start: 10-21-2024 take 1 tablet by mouth every six hours as needed for pain HYDROcodone-aceta minophen (Comins) 5-325 MG tablet TAKE 1 TABLET BY [...] Active Comment on above: Use as directed [id number] actuat albuterol 0.09 mg/actuat metered dose [...] 12-09-2024 cholecalcifero l (Vitamin D-3) 1.25 MG (80926 UT) capsule Take by mouth 1 (one) [...] / neomycin 3.5 mg/ml / polymyxin b 65226 unt/ml ophthalmic suspension (1 source) Aminoglycoside Antibacterial, [...] Diabetes mellitus type 1, controlled, without complications ([facility]) Please inject three times a day with [...] hyperglycemia, with long-term current use of insulin ([facility]) Use in the Insulin Pump for TDD [...] Comment on above: Take 1 capsule by [facility] twice daily with meals. metoclopramide 5 mg [...] Indications: Obstruction of central line, initial encounter ([facility]) 2 mL by INTRALUMINAL route one time [...] hyperglycemia, with long-term current use of insulin ([facility]) , Insulin pump status Use 1 [place] in the nose as needed for low [...] subcutaneously for insulin shock. 250.03 Use 1 [place] in the n ose as needed for [...] on above: Take 4 tablets by mo [facility] [place] as needed. heparin (1 source) Unfractionated Heparin, [...] Comment on above: Take 1 capsule by [facility] once daily. Administer on an empty stomach. [...] current use of drug therapy; Translations: [Other care home (current) drug therapy] 01-27-2025 Episodic Other aftercare [...] W/Diff, Automatedon 08-0 PATH REV Reviewed Normal [facility] Comment on above: Result Comment: SEE REPORT IN PATIENT'S EMR AMENDED REPORT 03/31/25 1600 PATH REV previously reported as: December Performed By: #### L 100.0100, L500.4050, L501.2450, L700.6800 ####[facility] [address] [place], [address] Gastroenterology Visit Repor ton 03-31-2025 Gastroenterology Visit Report Normal [facility] Basic Metabolic Profile (BMP )on 03-19-2025 CO2 [Moles/Vol] 9.9 mmol/L Invalid Interpretation Code 21.0-32.0 [facility] Comment on above: Result Comment: Crit [...] same. Performed By: #### L 500.2500, L100.0100 ####[facility] [address] [place], [address] Bedside Glucoseon 03-19-2025 FINGERSTICK GLU 256 mg/dL High 74-106 [facility] Comment on above: Result Comment: EDGAR HUNG OF PATIENT CARE PER NURSING PROTOCOL Performed By: #### L 501.080 ####[facility] [address] [place], [address] CBC W/Diff, Automatedon 02-26 Absolute Lymph 1.18 X10 3/uL Normal 0.83-4.51 [facility] Comment on above: Performed By: #### L 500.2500, L100.0100 ####[facility] [address] [place], [address] Absolute Neut 15.3 X10 3/uL High 2.0-7.7 [facility] Comment on above: Performed By: #### L 500.2500, L100.0100 ####[facility] [address] [place], [address] Basophils/100 WBC (Bld) 0.3 % Normal 0-1 [facility] Comment on above: Performed By: #### L 500.2500, L100.0100 ####[facility] [address] [place], [address] Eosinophils/100 WBC (Bld) 0.0 % Normal 0-5 [facility] Comment on above: Performed By: #### L 500.2500, L100.0100 ####[facility] [address] [place], [address] Erythrocyte distribution width (RBC) [Ratio] 13.8 % Normal 11.6-14.6 [facility] Comment on above: Performed By: #### L 500.2500, L100.0100 ####[facility] [address] [place], [address] Hematocrit (Bld) [Volume fraction] 40.2 % Normal 37-47 [facility] Comment on above: Performed By: #### L 500.2500, L100.0100 ####[facility] [address] [place], [address] Hemoglobin (Bld) [Mass/Vol] 13.5 g/dL Normal 12.0-15.0 [facility] Comment on above: Performed By: #### L 500.2500, L100.0100 ####[facility] [address] [place], [address] IG% 1.100 High 0.0-0.9 [facility] Comment on above: Result Comment: IG% - Immature Granulocytes (promyelocytes, myelocytes andmetamyelocytes) > 1% indicates that a LEFT SHIFT is Present. Performed By: #### L 500.2500, L100.0100 ####[facility] [address] [place], [address] Lymphocytes/100 WBC (Bld) 6.8 % Low 19-41 [facility] Comment on above: Performed By: #### L 500.2500, L100.0100 ####[facility] [address] [place], [address] MCH (RBC) [Entitic mass] 29.3 pg Normal 27.0-32.0 [facility] Comment on above: Performed By: #### L 500.2500, L100.0100 ####[facility] [address] [place], [address] MCHC (RBC) [Mass/Vol] 33.6 g/dL Normal 32-36 [facility] Comment on above: Performed By: #### L 500.2500, L100.0100 ####[facility] [address] [place], [address] MCV (RBC) [Entitic vol] 87.4 fL Normal 81-99 [facility] Comment on above: Performed By: #### L 500.2500, L100.0100 ####[facility] [address] [place], [address] Monocytes/100 WBC (Bld) 3.2 % Normal 0-10 [facility] Comment on above: Performed By: #### L 500.2500, L100.0100 ####[facility] [address] [place], [address] Neutrophils/100 WBC (Bld) 88.6 % High 47-70 [facility] Comment on above: Performed By: #### L 500.2500, L100.0100 ####[facility] [address] [place], [address] Nucleated RBC (Bld) [#/Vol] 0 10*3/uL Normal 0-5 [facility] Comment on above: Performed By: #### L 500.2500, L100.0100 ####[facility] [address] [place], [address] Platelet mean volume (Bld) [Entitic vol] 11.7 fL Normal 6.2-12.0 [facility] Comment on above: Performed By: #### L 500.2500, L100.0100 ####[facility] [address] [place], [address] Platelets (Bld) [#/Vol] 165 10*3/uL Normal 150-450 [facility] Comment on above: Performed By: #### L 500.2500, L100.0100 ####[facility] [address] [place], [address] RBC (Bld) [#/Vol] 4.60 10*6/uL Normal 4.2-5.4 [facility] Comment on above: Performed By: #### L 500.2500, L100.0100 ####[facility] [address] [place], [address] RDW SD 43.9 fl Normal 35.1-43.9 [facility] Comment on above: Performed By: #### L 500.2500, L100.0100 ####[facility] [address] [place], [address] WBC (Bld) [#/Vol] 17.3 10*3/uL High 4.4-11.0 [facility] Comment on above: Performed By: #### L 500.2500, L100.0100 ####[facility] [address] [place], [address] Discharge Instructionon 02-26 Discharge Instruction Normal [facility] Magnesiumon 03-19-2025 Magnesium [Mass/Vol] 1.8 mg/dL Normal 1.5-2.2 [facility] Comment on above: Performed By: #### L 501.2300, L501.5200 ####[facility] [address] [place], [address] Phosphoruson 03-19-2025 Phosphate [Mass/Vol] 1.7 mg/dL Low 2.7-4.5 [facility] Comment on above: Performed By: #### L 501.2300, L501.5200 ####[facility] [address] [place], [address] Basic Metabolic Profile (BMP )on 03-18-2025 BUN/CRE 8.4 RATIO Low 10-20 [facility] Comment on above: Performed By: #### L 500.2500 ####[facility] [address] [place], [address] Calcium [Mass/Vol] 8.6 mg/dL Normal 7.6-11.0 [facility] Comment on above: Performed By: #### L 500.2500 ####[facility] [address] [place], [address] Chloride [Moles/Vol] 109 mmol/L High 98-108 [facility] Comment on above: Performed By: #### L 500.2500 ####[facility] [address] [place], [address] CO2 [Moles/Vol] 16.1 mmol/L Low 21.0-32.0 [facility] Comment on above: Performed By: #### L 500.2500 ####[facility] [address] [place], [address] Creatinine [Mass/Vol] 0.75 mg/dL Normal 0.70-1.20 [facility] Comment on above: Performed By: #### L 500.2500 ####[facility] [address] [place], [address] ECRCL 114.62 ml/min Normal 50-250 [facility] Comment on above: Performed By: #### L 500.2500 ####[facility] [address] [place], [address] GAP 12 Normal 5-15 [facility] Comment on above: Performed By: #### L 500.2500 ####[facility] [address] [place], [address] GFR/1.73 sq M.predicted among non-blacks MDRD (S/P/Bld) [Vol rate/Area] 110 mL/min/{1.73_m2} Normal >60 [facility] Comment on above: Result Comment: mL/m in/1.73m2 CKD-EPI Creatinine Equation (2020) Performed By: #### L 500.2500 ####[facility] [address] [place], [address] Glucose [Mass/Vol] 142 mg/dL High 70-99 [facility] Comment on above: Performed By: #### L 500.2500 ####[facility] [address] [place], [address] Potassium [Moles/Vol] 3.8 mmol/L Normal 3.3-5.1 [facility] Comment on above: Result Comment: Hemo lysis present, Results??could be affected.?? Performed By: #### L 500.2500 ####[facility] [address] [place], [address] Sodium [Moles/Vol] 138 mmol/L Normal 133-145 [facility] Comment on above: Performed By: #### L 500.2500 ####[facility] [address] [place], [address] Urea nitrogen [Mass/Vol] 6 mg/dL Normal 4-19 [facility] Comment on above: Performed By: #### L 500.2500 ####[facility] [address] [place], [address] BUN/CRE 9.9 RATIO Low 10-20 [facility] Comment on above: Performed By: #### L 500.2500 ####[facility] [address] [place], [address] Calcium [Mass/Vol] 8.4 mg/dL Normal 7.6-11.0 [facility] Comment on above: Performed By: #### L 500.2500 ####[facility] [address] [place], [address] Chloride [Moles/Vol] 110 mmol/L High 98-108 [facility] Comment on above: Performed By: #### L 500.2500 ####[facility] [address] [place], [address] CO2 [Moles/Vol] 14.1 mmol/L Low 21.0-32.0 [facility] Comment on above: Performed By: #### L 500.2500 ####[facility] [address] [place], [address] Creatinine [Mass/Vol] 0.74 mg/dL Normal 0.70-1.20 [facility] Comment on above: Performed By: #### L 500.2500 ####[facility] [address] [place], [address] ECRCL 116.17 ml/min Normal 50-250 [facility] Comment on above: Performed By: #### L 500.2500 ####[facility] [address] [place], [address] GAP 14 Normal 5-15 [facility] Comment on above: Performed By: #### L 500.2500 ####[facility] [address] [place], [address] GFR/1.73 sq M.predicted among non-blacks MDRD (S/P/Bld) [Vol rate/Area] 112 mL/min/{1.73_m2} Normal >60 [facility] Comment on above: Result Comment: mL/m in/1.73m2 CKD-EPI Creatinine Equation (2020) Performed By: #### L 500.2500 ####[facility] [address] [place], [address] Glucose [Mass/Vol] 187 mg/dL High 70-99 [facility] Comment on above: Performed By: #### L 500.2500 ####[facility] [address] [place], [address] Potassium [Moles/Vol] 3.9 mmol/L Normal 3.3-5.1 [facility] Comment on above: Performed By: #### L 500.2500 ####[facility] [address] [place], [address] Sodium [Moles/Vol] 138 mmol/L Normal 133-145 [facility] Comment on above: Performed By: #### L 500.2500 ####[facility] [address] [place], [address] Urea nitrogen [Mass/Vol] 7 mg/dL Normal 4-19 [facility] Comment on above: Performed By: #### L 500.2500 ####[facility] [address] [place], [address] BUN/CRE 10.8 RATIO Normal 10-20 [facility] Comment on above: Performed By: #### L 500.2500 ####[facility] [address] [place], [address] Calcium [Mass/Vol] 8.3 mg/dL Normal 7.6-11.0 [facility] Comment on above: Performed By: #### L 500.2500 ####[facility] [address] [place], [address] Chloride [Moles/Vol] 108 mmol/L Normal 98-108 [facility] Comment on above: Performed By: #### L 500.2500 ####[facility] [address] [place], [address] CO2 [Moles/Vol] 10.5 mmol/L Low 21.0-32.0 [facility] Comment on above: Performed By: #### L 500.2500 ####[facility] [address] [place], [address] Creatinine [Mass/Vol] 0.83 mg/dL Normal 0.70-1.20 [facility] Comment on above: Performed By: #### L 500.2500 ####[facility] [address] [place], [address] ECRCL 103.58 ml/min Normal 50-250 [facility] Comment on above: Performed By: #### L 500.2500 ####[facility] [address] [place], [address] GAP 17 High 5-15 [facility] Comment on above: Performed By: #### L 500.2500 ####[facility] [address] [place], [address] GFR/1.73 sq M.predicted among non-blacks MDRD (S/P/Bld) [Vol rate/Area] 98 mL/min/{1.73_m2} Normal >60 [facility] Comment on above: Result Comment: mL/m in/1.73m2 CKD-EPI Creatinine Equation (2020) Performed By: #### L 500.2500 ####[facility] [address] [place], [address] Glucose [Mass/Vol] 219 mg/dL High 70-99 [facility] Comment on above: Performed By: #### L 500.2500 ####[facility] [address] [place], [address] Potassium [Moles/Vol] 4.4 mmol/L Normal 3.3-5.1 [facility] Comment on above: Result Comment: Hemo lysis present, Results??could be affected.?? Performed By: #### L 500.2500 ####[facility] [address] [place], [address] Sodium [Moles/Vol] 136 mmol/L Normal 133-145 [facility] Comment on above: Performed By: #### L 500.2500 ####[facility] [address] [place], [address] Urea nitrogen [Mass/Vol] 9 mg/dL Normal 4-19 [facility] Comment on above: Performed By: #### L 500.2500 ####[facility] [address] [place], [address] BUN/CRE 11.7 RATIO Normal 10-20 [facility] Comment on above: Performed By: #### L 500.2500 ####[facility] [address] [place], [address] Calcium [Mass/Vol] 8.3 mg/dL Normal 7.6-11.0 [facility] Comment on above: Performed By: #### L 500.2500 ####[facility] [address] [place], [address] Chloride [Moles/Vol] 106 mmol/L Normal 98-108 [facility] Comment on above: Performed By: #### L 500.2500 ####[facility] [address] [place], [address] CO2 [Moles/Vol] 7.8 mmol/L Invalid Interpretation Code 21.0-32.0 [facility] Comment on above: Result Comment: Crit ical Result(s) Called at: 0446 by:??JULIÁN AQUINO. Results read back by same. Performed By: #### L 500.2500 ####[facility] [address] [place], [address] Creatinine [Mass/Vol] 0.94 mg/dL Normal 0.70-1.20 [facility] Comment on above: Performed By: #### L 500.2500 ####[facility] [address] [place], [address] ECRCL 91.46 ml/min Normal 50-250 [facility] Comment on above: Performed By: #### L 500.2500 ####[facility] [address] [place], [address] GAP 23 High 5-15 [facility] Comment on above: Performed By: #### L 500.2500 ####[facility] [address] [place], [address] GFR/1.73 sq M.predicted among non-blacks MDRD (S/P/Bld) [Vol rate/Area] 83 mL/min/{1.73_m2} Normal >60 [facility] Comment on above: Result Comment: mL/m in/1.73m2 CKD-EPI Creatinine Equation (2020) Performed By: #### L 500.2500 ####[facility] [address] [place], [address] Glucose [Mass/Vol] 238 mg/dL High 70-99 [facility] Comment on above: Performed By: #### L 500.2500 ####[facility] [address] [place], [address] Potassium [Moles/Vol] 4.7 mmol/L Normal 3.3-5.1 [facility] Comment on above: Result Comment: Hemo lysis present, Results??could be affected.?? Performed By: #### L 500.2500 ####[facility] [address] [place], [address] Sodium [Moles/Vol] 136 mmol/L Normal 133-145 [facility] Comment on above: Performed By: #### L 500.2500 ####[facility] [address] [place], [address] Urea nitrogen [Mass/Vol] 11 mg/dL Normal 4-19 [facility] Comment on above: Performed By: #### L 500.2500 ####[facility] [address] [place], [address] BUN/CRE 13.0 RATIO Normal 10-20 [facility] Comment on above: Performed By: #### L 500.2500 ####[facility] [address] [place], [address] Calcium [Mass/Vol] 8.0 mg/dL Normal 7.6-11.0 [facility] Comment on above: Performed By: #### L 500.2500 ####[facility] [address] [place], [address] Chloride [Moles/Vol] 102 mmol/L Normal 98-108 [facility] Comment on above: Performed By: #### L 500.2500 ####[facility] [address] [place], [address] CO2 [Moles/Vol] 6.1 mmol/L Invalid Interpretation Code 21.0-32.0 [facility] Comment on above: Result Comment: Crit ical Result(s) Called at: 0044 by:??JULIÁN AQUINO. Results read back by same. Performed By: #### L 500.2500 ####[facility] [address] [place], [address] Creatinine [Mass/Vol] 1.06 mg/dL Normal 0.70-1.20 [facility] Comment on above: Performed By: #### L 500.2500 ####[facility] [address] [place], [address] ECRCL 81.10 ml/min Normal 50-250 [facility] Comment on above: Performed By: #### L 500.2500 ####[facility] [address] [place], [address] GAP 26 High 5-15 [facility] Comment on above: Performed By: #### L 500.2500 ####[facility] [address] [place], [address] GFR/1.73 sq M.predicted among non-blacks MDRD (S/P/Bld) [Vol rate/Area] 72 mL/min/{1.73_m2} Normal >60 [facility] Comment on above: Result Comment: mL/m in/1.73m2 CKD-EPI Creatinine Equation (2020) Performed By: #### L 500.2500 ####[facility] [address] [place], [address] Glucose [Mass/Vol] 265 mg/dL High 70-99 [facility] Comment on above: Performed By: #### L 500.2500 ####[facility] [address] [place], [address] Potassium [Moles/Vol] 4.6 mmol/L Normal 3.3-5.1 [facility] Comment on above: Result Comment: Hemo lysis present, Results??could be affected.?? Performed By: #### L 500.2500 ####[facility] [address] [place], [address] Sodium [Moles/Vol] 134 mmol/L Normal 133-145 [facility] Comment on above: Performed By: #### L 500.2500 ####[facility] [address] [place], [address] Urea nitrogen [Mass/Vol] 14 mg/dL Normal 4-19 [facility] Comment on above: Performed By: #### L 500.2500 ####[facility] [address] [place], [address] Bedside Glucoseon 03-18-2025 FINGERSTICK GLU 263 mg/dL High 74-106 [facility] Comment on above: Result Comment: EDGAR HUNG OF PATIENT CARE PER NURSING PROTOCOL Performed By: #### L 501.080 ####[facility] [address] [place], [address] FINGERSTICK GLU 134 mg/dL High 74-106 [facility] Comment on above: Result Comment: EDGAR GEMENT OF PATIENT CARE PER NURSING PROTOCOL Performed By: #### L 501.080 ####[facility] [address] [place], [address] FINGERSTICK GLU 139 mg/dL High 74-106 [facility] Comment on above: Result Comment: EDGAR GEMENT OF PATIENT CARE PER NURSING PROTOCOL Performed By: #### L 501.080 ####[facility] [address] [place], [address] FINGERSTICK GLU 156 mg/dL High 74-106 [facility] Comment on above: Result Comment: EDGAR GEMENT OF PATIENT CARE PER NURSING PROTOCOL Performed By: #### L 501.080 ####[facility] [address] [place], [address] FINGERSTICK GLU 177 mg/dL High [facility]106 [facility] Comment on above: Result Comment: EDGAR GEMENT OF PATIENT CARE PER NURSING PROTOCOL Performed By: #### L 501.080 ####[facility] [address] [place], [address] FINGERSTICK GLU 167 mg/dL High [facility]106 [facility] Comment on above: Result Comment: EDGAR GEMENT OF PATIENT CARE PER NURSING PROTOCOL Performed By: #### L 501.080 ####[facility] [address] [place], [address] FINGERSTICK GLU 171 mg/dL High [address] [place] [address] Comment on above: Result Comment: EDGAR GEMENT OF PATIENT CARE PER NURSING PROTOCOL Performed By: #### L 501.080 ####[facility] [address] [place], [address] FINGERSTICK GLU 176 mg/dL High [facility]106 [facility] Comment on above: Result Comment: EDGAR GEMENT OF PATIENT CARE PER NURSING PROTOCOL Performed By: #### L 501.080 ####[facility] [address] [place], [address] FINGERSTICK GLU 192 mg/dL High 74-106 [facility] Comment on above: Result Comment: EDGAR GEMENT OF PATIENT CARE PER NURSING PROTOCOL Performed By: #### L 501.080 ####[facility] [address] [place], [address] FINGERSTICK GLU 200 mg/dL High 74-106 [facility] Comment on above: Result Comment: EDGAR GEMENT OF PATIENT CARE PER NURSING PROTOCOL Performed By: #### L 501.080 ####[facility] [address] [place], [address] FINGERSTICK GLU 204 mg/dL High -106 [facility] Comment on above: Result Comment: EDGAR GEMENT OF PATIENT CARE PER NURSING PROTOCOL Performed By: #### L 501.080 ####[facility] [address] [place], [address] FINGERSTICK GLU 229 mg/dL High [facility]106 [facility] Comment on above: Result Comment: EDGAR GEMENT OF PATIENT CARE PER NURSING PROTOCOL Performed By: #### L 501.080 ####[facility] [address] [place], [address] FINGERSTICK GLU 218 mg/dL High [facility]106 [facility] Comment on above: Result Comment: EDGAR GEMENT OF PATIENT CARE PER NURSING PROTOCOL Performed By: #### L 501.080 ####[facility] [address] [place], [address] FINGERSTICK GLU 241 mg/dL High 74-106 [facility] Comment on above: Result Comment: EDGAR GEMENT OF PATIENT CARE PER NURSING PROTOCOL Performed By: #### L 501.080 ####[facility] [address] [place], [address] FINGERSTICK GLU 203 mg/dL High -106 [facility] Comment on above: Result Comment: EDGAR GEMENT OF PATIENT CARE PER NURSING PROTOCOL Performed By: #### L 501.080 ####[facility] [address] [place], [address] FINGERSTICK GLU 182 mg/dL High 74-106 [facility] Comment on above: Result Comment: EDGAR GEMENT OF PATIENT CARE PER NURSING PROTOCOL Performed By: #### L 501.080 ####[facility] [address] [place], [address] FINGERSTICK GLU 199 mg/dL High 74-106 [facility] Comment on above: Result Comment: EDGAR GEMENT OF PATIENT CARE PER NURSING PROTOCOL Performed By: #### L 501.080 ####[facility] [address] [place], [address] FINGERSTICK GLU 201 mg/dL High 74-106 [facility] Comment on above: Result Comment: EDGAR GEMENT OF PATIENT CARE PER NURSING PROTOCOL Performed By: #### L 501.080 ####[facility] [address] [place], [address] Consultation - Intensiviston 03-18-2025 Consultation - Practical Nurse Normal [facility] Bedside Glucoseon 03-17-2025 FINGERSTICK GLU 272 mg/dL High [address] [place] [address] Comment on above: Result Comment: EDGAR GEMENT OF PATIENT CARE PER NURSING PROTOCOL Performed By: #### L 501.080 ####[facility] [address] [place], [address] Beta-Hydroxbytyrateon 2024 BETA-HYDROXYBUT 9.3 mmol/L High 0.0-0.3 [facility] Comment on above: Performed By: #### L 501.6901 ####[facility] [address] [place], [address] Chest 1 View (Portable)on Chest 1 View (Portable) Normal [facility] Comprehensive Metabolic Prof ilon 03-17-2025 Albumin [Mass/Vol] 5.0 g/dL Normal 3.5-5.0 [facility] Comment on above: Performed By: #### L 100.0100, L500.4050, L501.2450, L700.6800 ####[facility] [address] [place], [address] Albumin/Globulin [Mass ratio] 1.9 {ratio} Normal 0.9-2.4 [facility] Comment on above: Performed By: #### L 100.0100, L500.4050, L501.2450, L700.6800 ####[facility] [address] [place], [address] ALK PHOS 123 U/L High 35-104 [facility] Comment on above: Performed By: #### L 100.0100, L500.4050, L501.2450, L700.6800 ####[facility] [address] [place], [address] ALT [Catalytic activity/Vol] 18 U/L Normal <=34 [facility] Comment on above: Performed By: #### L 100.0100, L500.4050, L501.2450, L700.6800 ####[facility] [address] [place], [address] AST [Catalytic activity/Vol] 18 U/L Normal <=31 [facility] Comment on above: Performed By: #### L 100.0100, L500.4050, L501.2450, L700.6800 ####[facility] [address] [place], [address] Bilirubin [Mass/Vol] 0.74 mg/dL Normal 0.00-1.30 [facility] Comment on above: Performed By: #### L 100.0100, L500.4050, L501.2450, L700.6800 ####[facility] [address] [place], [address] BUN/CRE 14.1 RATIO Normal 10-20 [facility] Comment on above: Performed By: #### L 100.0100, L500.4050, L501.2450, L700.6800 ####[facility] [address] [place], [address] Calcium [Mass/Vol] 9.7 mg/dL Normal 7.6-11.0 [facility] Comment on above: Performed By: #### L 100.0100, L500.4050, L501.2450, L700.6800 ####[facility] [address] [place], [address] Chloride [Moles/Vol] 84 mmol/L Low 98-108 [facility] Comment on above: Performed By: #### L 100.0100, L500.4050, L501.2450, L700.6800 ####[facility] [address] [place], [address] CO2 [Moles/Vol] 6.0 mmol/L Invalid Interpretation Code 21.0-32.0 [facility] Comment on above: Result Comment: Crit ical Result(s) Called at: 2137 by:??JULIÁN CHANDLER. Results read back by same. Performed By: #### L 100.0100, L500.4050, L501.2450, L700.6800 ####[facility] [address] [place], [address] Creatinine [Mass/Vol] 1.18 mg/dL Normal 0.70-1.20 [facility] Comment on above: Performed By: #### L 100.0100, L500.4050, L501.2450, L700.6800 ####[facility] [address] [place], [address] ECRCL 72.85 ml/min Normal 50-250 [facility] Comment on above: Performed By: #### L 100.0100, L500.4050, L501.2450, L700.6800 ####[facility] [address] [place], [address] GAP 37 High 5-15 [facility] Comment on above: Performed By: #### L 100.0100, L500.4050, L501.2450, L700.6800 ####[facility] [address] [place], [address] GFR/1.73 sq M.predicted among non-blacks MDRD (S/P/Bld) [Vol rate/Area] 64 mL/min/{1.73_m2} Normal >60 [facility] Comment on above: Result Comment: mL/m in/1.73m2 CKD-EPI Creatinine Equation (2020) Performed By: #### L 100.0100, L500.4050, L501.2450, L700.6800 ####[facility] [address] [place], [address] Globulin (S) [Mass/Vol] 2.7 g/dL Normal 2.2-4.2 [facility] Comment on above: Performed By: #### L 100.0100, L500.4050, L501.2450, L700.6800 ####[facility] [address] [place], [address] Glucose [Mass/Vol] 561 mg/dL Invalid Interpretation Code 70-99 [facility] Comment on above: Result Comment: Crit ical Result(s) Called at: by:??Results read back bysame.Critical Result(s) Called at: 2137 by:??JULIÁN CHANDLER. Results read back by same. Performed By: #### L 100.0100, L500.4050, L501.2450, L700.6800 ####[facility] [address] [place], [address] Potassium [Moles/Vol] 5.4 mmol/L High 3.3-5.1 [facility] Comment on above: Performed By: #### L 100.0100, L500.4050, L501.2450, L700.6800 ####[facility] [address] [place], [address] Sodium [Moles/Vol] 128 mmol/L Low 133-145 [facility] Comment on above: Performed By: #### L 100.0100, L500.4050, L501.2450, L700.6800 ####[facility] [address] [place], [address] T PROT 7.6 g/dL Normal 5.9-8.4 [facility] Comment on above: Performed By: #### L 100.0100, L500.4050, L501.2450, L700.6800 ####[facility] [address] [place], [address] Urea nitrogen [Mass/Vol] 17 mg/dL Normal 4-19 [facility] Comment on above: Performed By: #### L 100.0100, L500.4050, L501.2450, L700.6800 ####[facility] [address] [place], [address] Emergency Department Summary on 03-17-2025 Emergency Department Summary Normal [facility] Lipaseon 03-17-2025 Lipase [Catalytic activity/Vol] 10 U/L Low 13-75 [facility] Comment on above: Result Comment: Sulma schmitz note:LIPASE revised reference range effective 22.New Lipase methodology. Expected to produce lower valuesthan the previous assay method.NEW Reference Range: 13 - 75 U/L Performed By: #### L 100.0100, L500.4050, L501.2450, L700.6800 ####[facility] [address] [place], [address] ,Serum,hCG Quali.on 03-17-2025 HCG, SERUM QUAL Negative [facility] Comment on above: Performed By: #### L 100.0100, L500.4050, L501.2450, L700.6800 ####[facility] [address] [place], [address] Venous Blood Gason 5 Blood Gas Type ISABELLE [facility] Comment on above: Performed By: #### L 9000.0810 ####[facility] [address] [place], [address] CO2 [Moles/Vol] 7 mmol/L Low 23-33 [facility] Comment on above: Performed By: #### L 9000.0810 ####[facility] [address] [place], [address] HCO3 (Bld) [Moles/Vol] 6 mmol/L Low 22-26 [facility] Comment on above: Performed By: #### L 9000.0810 ####[facility] [address] [place], [address] O2 Delivery Dev Room Air [facility] Comment on above: Performed By: #### L 9000.0810 ####[facility] [address] [place], [address] Read Back By Yes [facility] Comment on above: Performed By: #### L 9000.0810 ####[facility] [address] [place], [address] Results To [facility] Comment on above: Performed By: #### L 9000.0810 ####[facility] [address] [place], [address] SITE Not entered Burns [facility] Comment on above: Performed By: #### L 9000.0810 ####[facility] [address] [place], [address] Time Given 20:45:58 Normal [facility] Comment on above: Performed By: #### L 9000.0810 ####[facility] [address] [place], [address] VBG BE -23 mmol/L Low -1.0-3.5 [facility] Comment on above: Performed By: #### L 9000.0810 ####[facility] [address] [place], [address] VBG pCO2 17.3 mmHg Invalid Interpretation Code 41-51 [facility] Comment on above: Performed By: #### L 9000.0810 ####[facility] [address] [place], [address] VBG pH 7.15 Invalid Interpretation Code 7.32-7.42 [facility] Comment on above: Performed By: #### L 9000.0810 ####[facility] [address] [place], [address] VBG PO2 55 mmHg High 25-40 [facility] Comment on above: Performed By: #### L 9000.0810 ####[facility] [address] [place], [address] VBG SO2 80 High 50-70 [facility] Comment on above: Performed By: #### L 9000.0810 ####[facility] [address] [place], [address] Bedside Glucoseon 03-08-2025 FINGERSTICK GLU 252 mg/dL High 74-106 [facility] Comment on above: Result Comment: EDGAR HUNG OF PATIENT CARE PER NURSING PROTOCOL Performed By: #### L 501.080 ####[facility] [address] [place], [address] FINGERSTICK GLU 272 mg/dL High 74-106 [facility] Comment on above: Result Comment: EDGAR HUNG OF PATIENT CARE PER NURSING PROTOCOL Performed By: #### L 501.080 ####[facility] [address] [place], [address] Basic Metabolic Profile (BMP )on 03-07-2025 BUN Normal 4-19 [facility] Comment on above: Result Comment: Canc elled via OM: MD Ordered Performed By: #### L 500.2500 ####[facility] [address] [place], [address] BUN/CRE Normal 10-20 [facility] Comment on above: Result Comment: Canc elled via OM: MD Ordered Performed By: #### L 500.2500 ####[facility] [address] [place], [address] Calcium Normal 7.6-11.0 [facility] Comment on above: Result Comment: Canc elled via OM: MD Ordered Performed By: #### L 500.2500 ####[facility] [address] [place], [address] CL Normal 98-108 [facility] Comment on above: Result Comment: Canc elled via OM: MD Ordered Performed By: #### L 500.2500 ####[facility] [address] [place], [address] CO2 Normal 21.0-32.0 [facility] Comment on above: Result Comment: Canc elled via OM: MD Ordered Performed By: #### L 500.2500 ####[facility] [address] [place], [address] CREAT,SERUM Normal 0.70-1.20 [facility] Comment on above: Result Comment: Canc elled via OM: MD Ordered Performed By: #### L 500.2500 ####[facility] [address] [place], [address] eGFR Normal >60 [facility] Comment on above: Result Comment: Canc elled via OM: MD Ordered Performed By: #### L 500.2500 ####[facility] [address] [place], [address] GAP Normal 5-15 [facility] Comment on above: Result Comment: Canc elled via OM: MD Ordered Performed By: #### L 500.2500 ####[facility] [address] [place], [address] GLU Normal 70-99 [facility] Comment on above: Result Comment: Canc elled via OM: MD Ordered Performed By: #### L 500.2500 ####[facility] [address] [place], [address] Potassium Normal 3.3-5.1 [facility] Comment on above: Result Comment: Canc elled via OM: MD Ordered Performed By: #### L 500.2500 ####[facility] [address] [place], [address] Basic Metabolic Profile (BMP) Normal 133-145 [facility] Comment on above: Result Comment: Canc elled via OM: MD Ordered Performed By: #### L 500.2500 ####[facility] [address] [place], [address] BUN/CRE 8.1 RATIO Low 10-20 [facility] Comment on above: Performed By: #### L 500.2500 ####[facility] [address] [place], [address] Calcium [Mass/Vol] 8.0 mg/dL Normal 7.6-11.0 [facility] Comment on above: Performed By: #### L 500.2500 ####[facility] [address] [place], [address] Chloride [Moles/Vol] 110 mmol/L High 98-108 [facility] Comment on above: Performed By: #### L 500.2500 ####[facility] [address] [place], [address] CO2 [Moles/Vol] 21.4 mmol/L Normal 21.0-32.0 [facility] Comment on above: Performed By: #### L 500.2500 ####[facility] [address] [place], [address] Creatinine [Mass/Vol] 0.58 mg/dL Low 0.70-1.20 [facility] Comment on above: Performed By: #### L 500.2500 ####[facility] [address] [place], [address] ECRCL 148.22 ml/min Normal 50-250 [facility] Comment on above: Performed By: #### L 500.2500 ####[facility] [address] [place], [address] GAP 8 Normal 5-15 [facility] Comment on above: Performed By: #### L 500.2500 ####[facility] [address] [place], [address] GFR/1.73 sq M.predicted among non-blacks MDRD (S/P/Bld) [Vol rate/Area] 125 mL/min/{1.73_m2} Normal >60 [facility] Comment on above: Result Comment: mL/m in/1.73m2 CKD-EPI Creatinine Equation (2020) Performed By: #### L 500.2500 ####[facility] [address] [place], [address] Glucose [Mass/Vol] 113 mg/dL High 70-99 [facility] Comment on above: Performed By: #### L 500.2500 ####[facility] [address] [place], [address] Potassium [Moles/Vol] 3.2 mmol/L Low 3.3-5.1 [facility] Comment on above: Performed By: #### L 500.2500 ####[facility] [address] [place], [address] Sodium [Moles/Vol] 139 mmol/L Normal 133-145 [facility] Comment on above: Performed By: #### L 500.2500 ####[facility] [address] [place], [address] Urea nitrogen [Mass/Vol] 5 mg/dL Normal 4-19 [facility] Comment on above: Performed By: #### L 500.2500 ####[facility] [address] [place], [address] BUN/CRE 9.9 RATIO Low 10-20 [facility] Comment on above: Performed By: #### L 500.2500 ####[facility] [address] [place], [address] Calcium [Mass/Vol] 8.2 mg/dL Normal 7.6-11.0 [facility] Comment on above: Performed By: #### L 500.2500 ####[facility] [address] [place], [address] Chloride [Moles/Vol] 109 mmol/L High 98-108 [facility] Comment on above: Performed By: #### L 500.2500 ####[facility] [address] [place], [address] CO2 [Moles/Vol] 20.2 mmol/L Low 21.0-32.0 [facility] Comment on above: Performed By: #### L 500.2500 ####[facility] [address] [place], [address] Creatinine [Mass/Vol] 0.63 mg/dL Low 0.70-1.20 [facility] Comment on above: Performed By: #### L 500.2500 ####[facility] [address] [place], [address] ECRCL 136.46 ml/min Normal 50-250 [facility] Comment on above: Performed By: #### L 500.2500 ####[facility] [facility] [address] [place], [address] GAP 10 Normal 5-15 [facility] Comment on above: Performed By: #### L 500.2500 ####[facility] [address] [place], [address] GFR/1.73 sq M.predicted among non-blacks MDRD (S/P/Bld) [Vol rate/Area] 122 mL/min/{1.73_m2} Normal >60 [facility] Comment on above: Result Comment: mL/m in/1.73m2 CKD-EPI Creatinine Equation (2020) Performed By: #### L 500.2500 ####[facility] [address] [place], [address] Glucose [Mass/Vol] 136 mg/dL High 70-99 [facility] Comment on above: Performed By: #### L 500.2500 ####[facility] [address] [place], [address] Potassium [Moles/Vol] 3.3 mmol/L Normal 3.3-5.1 [facility] Comment on above: Performed By: #### L 500.2500 ####[facility] [address] [place], [address] Sodium [Moles/Vol] 139 mmol/L Normal 133-145 [facility] Comment on above: Performed By: #### L 500.2500 ####[facility] [address] [place], [address] Urea nitrogen [Mass/Vol] 6 mg/dL Normal 4-19 [facility] Comment on above: Performed By: #### L 500.2500 ####[facility] [address] [place], [address] Bedside Glucoseon 03-07-2025 FINGERSTICK GLU 282 mg/dL High 74-106 [facility] Comment on above: Result Comment: EDGAR GEMENT OF PATIENT CARE PER NURSING PROTOCOL Performed By: #### L 501.080 ####[facility] [address] [place], [address] FINGERSTICK GLU 262 mg/dL High 74-106 [facility] Comment on above: Result Comment: EDGAR GEMENT OF PATIENT CARE PER NURSING PROTOCOL Performed By: #### L 501.080 ####[facility] [address] [place], [address] FINGERSTICK GLU 354 mg/dL High 74-106 [facility] Comment on above: Result Comment: EDGAR GEMENT OF PATIENT CARE PER NURSING PROTOCOL Performed By: #### L 501.080 ####[facility] [address] [place], [address] FINGERSTICK GLU 169 mg/dL High 74-106 [facility] Comment on above: Result Comment: EDGAR GEMENT OF PATIENT CARE PER NURSING PROTOCOL Performed By: #### L 501.080 ####[facility] [address] [place], [address] FINGERSTICK GLU 163 mg/dL High 74-106 [facility] Comment on above: Result Comment: EDGAR GEMENT OF PATIENT CARE PER NURSING PROTOCOL Performed By: #### L 501.080 ####[facility] [address] [place], [address] FINGERSTICK GLU 106 mg/dL Normal 74-106 [facility] Comment on above: Result Comment: EDGAR GEMENT OF PATIENT CARE PER NURSING PROTOCOL Performed By: #### L 501.080 ####[facility] [address] [place], [address] FINGERSTICK GLU 88 mg/dL Normal 74-106 [facility] Comment on above: Result Comment: EDGAR GEMENT OF PATIENT CARE PER NURSING PROTOCOL Performed By: #### L 501.080 ####[facility] [address] [place], [address] FINGERSTICK GLU 94 mg/dL Normal 74-106 [facility] Comment on above: Result Comment: EDGAR GEMENT OF PATIENT CARE PER NURSING PROTOCOL Performed By: #### L 501.080 ####[facility] [address] [place], [address] FINGERSTICK GLU 129 mg/dL High 74-106 [facility] Comment on above: Result Comment: EDGAR GEMENT OF PATIENT CARE PER NURSING PROTOCOL Performed By: #### L 501.080 ####[facility] [address] [place], [address] FINGERSTICK GLU 119 mg/dL High 74-106 [facility] Comment on above: Result Comment: EDGAR GEMENT OF PATIENT CARE PER NURSING PROTOCOL Performed By: #### L 501.080 ####[facility] [address] [place], [address] Beta-Hydroxbytyrateon 2024 BETA-HYDROXYBUT 1.2 mmol/L High 0.0-0.3 [facility] Comment on above: Performed By: #### L 501.6901 ####[facility] [address] [place], [address] CBC-Complete Blood Cnt No Di ffon 03-07-2025 Erythrocyte distribution width (RBC) [Ratio] 13.8 % Normal 11.6-14.6 [facility] Comment on above: Performed By: #### L 100.0500 ####[facility] [address] [place], [address] Hematocrit (Bld) [Volume fraction] 33.3 % Low 37-47 [facility] Comment on above: Performed By: #### L 100.0500 ####[facility] [address] [place], [address] Hemoglobin (Bld) [Mass/Vol] 11.0 g/dL Low 12.0-15.0 [facility] Comment on above: Performed By: #### L 100.0500 ####[facility] [address] [place], [address] MCH (RBC) [Entitic mass] 29.6 pg Normal 27.0-32.0 [facility] Comment on above: Performed By: #### L 100.0500 ####[facility] [address] [place], [address] MCHC (RBC) [Mass/Vol] 33.0 g/dL Normal 32-36 [facility] Comment on above: Performed By: #### L 100.0500 ####[facility] [address] [place], [address] MCV (RBC) [Entitic vol] 89.8 fL Normal 81-99 [facility] Comment on above: Performed By: #### L 100.0500 ####[facility] [address] [place], [address] Platelet mean volume (Bld) [Entitic vol] 11.4 fL Normal 6.2-12.0 [facility] Comment on above: Performed By: #### L 100.0500 ####[facility] [address] [place], [address] Platelets (Bld) [#/Vol] 176 10*3/uL Normal 150-450 [facility] Comment on above: Performed By: #### L 100.0500 ####[facility] [address] [place], [address] RBC (Bld) [#/Vol] 3.71 10*6/uL Low 4.2-5.4 [facility] Comment on above: Performed By: #### L 100.0500 ####[facility] [address] [place], [address] RDW SD 45.2 fl High 35.1-43.9 [facility] Comment on above: Performed By: #### L 100.0500 ####[facility] [address] [place], [address] WBC (Bld) [#/Vol] 15.4 10*3/uL High 4.4-11.0 [facility] Comment on above: Performed By: #### L 100.0500 ####[facility] [address] [place], [address] Basic Metabolic Profile (BMP )on 03-06-2025 BUN/CRE 12.3 RATIO Normal 10-20 [facility] Comment on above: Order Comment: Call MD with results STAT Performed By: #### L 500.2500 ####[facility] [address] [place], [address] Calcium [Mass/Vol] 8.3 mg/dL Normal 7.6-11.0 [facility] Comment on above: Order Comment: Call MD with results STAT Performed By: #### L 500.2500 ####[facility] [address] [place], [address] Chloride [Moles/Vol] 107 mmol/L Normal 98-108 [facility] Comment on above: Order Comment: Call MD with results STAT Performed By: #### L 500.2500 ####[facility] [address] [place], [address] CO2 [Moles/Vol] 18.9 mmol/L Low 21.0-32.0 [facility] Comment on above: Order Comment: Call MD with results STAT Performed By: #### L 500.2500 ####[facility] [address] [place], [address] Creatinine [Mass/Vol] 0.68 mg/dL Low 0.70-1.20 [facility] Comment on above: Order Comment: Call MD with results STAT Performed By: #### L 500.2500 ####[facility] [address] [place], [address] ECRCL 126.42 ml/min Normal 50-250 [facility] Comment on above: Order Comment: Call MD with results STAT Performed By: #### L 500.2500 ####[facility] [address] [place], [address] GAP 12 Normal 5-15 [facility] Comment on above: Order Comment: Call MD with results STAT Performed By: #### L 500.2500 ####[facility] [address] [place], [address] GFR/1.73 sq M.predicted among non-blacks MDRD (S/P/Bld) [Vol rate/Area] 120 mL/min/{1.73_m2} Normal >60 [facility] Comment on above: Order Comment: Call MD with results STAT Result Comment: mL/m in/1.73m2 CKD-EPI Creatinine Equation (2020) Performed By: #### L 500.2500 ####[facility] [address] [place], [address] Glucose [Mass/Vol] 199 mg/dL High 70-99 [facility] Comment on above: Order Comment: Call MD with results STAT Performed By: #### L 500.2500 ####[facility] [address] [place], [address] Potassium [Moles/Vol] 3.6 mmol/L Normal 3.3-5.1 [facility] Comment on above: Order Comment: Call MD with results STAT Performed By: #### L 500.2500 ####[facility] [address] [place], [address] Sodium [Moles/Vol] 137 mmol/L Normal 133-145 [facility] Comment on above: Order Comment: Call MD with results STAT Performed By: #### L 500.2500 ####[facility] [address] [place], [address] Urea nitrogen [Mass/Vol] 8 mg/dL Normal 4-19 [facility] Comment on above: Order Comment: Call MD with results STAT Performed By: #### L 500.2500 ####[facility] [address] [place], [address] BUN/CRE 13.8 RATIO Normal 10-20 [facility] Comment on above: Order Comment: Call MD with results STAT Performed By: #### L 500.2500 ####[facility] [address] [place], [address] Calcium [Mass/Vol] 8.3 mg/dL Normal 7.6-11.0 [facility] Comment on above: Order Comment: Call MD with results STAT Performed By: #### L 500.2500 ####[facility] [address] [place], [address] Chloride [Moles/Vol] 105 mmol/L Normal 98-108 [facility] Comment on above: Order Comment: Call MD with results STAT Performed By: #### L 500.2500 ####[facility] [address] [place], [address] CO2 [Moles/Vol] 16.5 mmol/L Low 21.0-32.0 [facility] Comment on above: Order Comment: Call MD with results STAT Performed By: #### L 500.2500 ####[facility] [address] [place], [address] Creatinine [Mass/Vol] 0.70 mg/dL Normal 0.70-1.20 [facility] Comment on above: Order Comment: Call MD with results STAT Performed By: #### L 500.2500 ####[facility] [address], [address] ECRCL 122.81 ml/min Normal 50-250 [facility] Comment on above: Order Comment: Call MD with results STAT Performed By: #### L 500.2500 ####[facility] [address] [place], [address] GAP 15 Normal 5-15 [facility] Comment on above: Order Comment: Call MD with results STAT Performed By: #### L 500.2500 ####[facility] [address] [place], [address] GFR/1.73 sq M.predicted among non-blacks MDRD (S/P/Bld) [Vol rate/Area] 119 mL/min/{1.73_m2} Normal >60 [facility] Comment on above: Order Comment: Call MD with results STAT Result Comment: mL/m in/1.73m2 CKD-EPI Creatinine Equation (2020) Performed By: #### L 500.2500 ####[facility] [address] [place], [address] Glucose [Mass/Vol] 239 mg/dL High 70-99 [facility] Comment on above: Order Comment: Call MD with results STAT Performed By: #### L 500.2500 ####[facility] [address] [place], [address] Potassium [Moles/Vol] 4.0 mmol/L Normal 3.3-5.1 [facility] Comment on above: Order Comment: Call MD with results STAT Performed By: #### L 500.2500 ####[facility] [address] [place], [address] Sodium [Moles/Vol] 136 mmol/L Normal 133-145 [facility] Comment on above: Order Comment: Call MD with results STAT Performed By: #### L 500.2500 ####[facility] [address] [place], [address] Urea nitrogen [Mass/Vol] 10 mg/dL Normal 4-19 [facility] Comment on above: Order Comment: Call MD with results STAT Performed By: #### L 500.2500 ####[facility] [address] [place], [address] BUN/CRE 15.9 RATIO Normal 10-20 [facility] Comment on above: Order Comment: Call MD with results STAT Performed By: #### L 500.2500 ####[facility] [address] [place], [address] Calcium [Mass/Vol] 8.3 mg/dL Normal 7.6-11.0 [facility] Comment on above: Order Comment: Call MD with results STAT Performed By: #### L 500.2500 ####[facility] [address] [place], [address] Chloride [Moles/Vol] 105 mmol/L Normal 98-108 [facility] Comment on above: Order Comment: Call MD with results STAT Performed By: #### L 500.2500 ####[facility] [address] [place], [address] CO2 [Moles/Vol] 13.0 mmol/L Low 21.0-32.0 [facility] Comment on above: Order Comment: Call MD with results STAT Performed By: #### L 500.2500 ####[facility] [address] [place], [address] Creatinine [Mass/Vol] 0.71 mg/dL Normal 0.70-1.20 [facility] Comment on above: Order Comment: Call MD with results STAT Performed By: #### L 500.2500 ####[facility] [address] [place], [address] ECRCL 121.08 ml/min Normal 50-250 [facility] Comment on above: Order Comment: Call MD with results STAT Performed By: #### L 500.2500 ####[facility] [address] [place], [address] GAP 18 High 5-15 [facility] Comment on above: Order Comment: Call MD with results STAT Performed By: #### L 500.2500 ####[facility] [address] [place], [address] GFR/1.73 sq M.predicted among non-blacks MDRD (S/P/Bld) [Vol rate/Area] 117 mL/min/{1.73_m2} Normal >60 [facility] Comment on above: Order Comment: Call MD with results STAT Result Comment: mL/m in/1.73m2 CKD-EPI Creatinine Equation (2020) Performed By: #### L 500.2500 ####[facility] [address] [place], [address] Glucose [Mass/Vol] 220 mg/dL High 70-99 [facility] Comment on above: Order Comment: Call MD with results STAT Performed By: #### L 500.2500 ####[facility] [address] [place], [address] Potassium [Moles/Vol] 4.3 mmol/L Normal 3.3-5.1 [facility] Comment on above: Order Comment: Call MD with results STAT Result Comment: Hemo lysis present, Results??could be affected.?? Performed By: #### L 500.2500 ####[facility] [address] [place], [address] Sodium [Moles/Vol] 136 mmol/L Normal 133-145 [facility] Comment on above: Order Comment: Call MD with results STAT Performed By: #### L 500.2500 ####[facility] [address] [place], [address] Urea nitrogen [Mass/Vol] 11 mg/dL Normal 4-19 [facility] Comment on above: Order Comment: Call MD with results STAT Performed By: #### L 500.2500 ####[facility] [address] [place], [address] BUN/CRE 17.5 RATIO Normal 10-20 [facility] Comment on above: Order Comment: Call MD with results STAT Performed By: #### L 500.2500 ####[facility] [address] [place], [address] Calcium [Mass/Vol] 8.8 mg/dL Normal 7.6-11.0 [facility] Comment on above: Order Comment: Call MD with results STAT Performed By: #### L 500.2500 ####[facility] [address] [place], [address] Chloride [Moles/Vol] 102 mmol/L Normal 98-108 [facility] Comment on above: Order Comment: Call MD with results STAT Performed By: #### L 500.2500 ####[facility] [address] [place], [address] CO2 [Moles/Vol] 11.6 mmol/L Low 21.0-32.0 [facility] Comment on above: Order Comment: Call MD with results STAT Performed By: #### L 500.2500 ####[facility] [address] [place], [address] Creatinine [Mass/Vol] 0.85 mg/dL Normal 0.70-1.20 [facility] Comment on above: Order Comment: Call MD with results STAT Performed By: #### L 500.2500 ####[facility] [address] [place], [address] ECRCL 101.14 ml/min Normal 50-250 [facility] Comment on above: Order Comment: Call MD with results STAT Performed By: #### L 500.2500 ####[facility] [address] [place], [address] GAP 22 High 5-15 [facility] Comment on above: Order Comment: Call MD with results STAT Performed By: #### L 500.2500 ####[facility] [address] [place], [address] GFR/1.73 sq M.predicted among non-blacks MDRD (S/P/Bld) [Vol rate/Area] 94 mL/min/{1.73_m2} Normal >60 [facility] Comment on above: Order Comment: Call MD with results STAT Result Comment: mL/m in/1.73m2 CKD-EPI Creatinine Equation (2020) Performed By: #### L 500.2500 ####[facility] [address] [place], [address] Glucose [Mass/Vol] 317 mg/dL High 70-99 [facility] Comment on above: Order Comment: Call MD with results STAT Performed By: #### L 500.2500 ####[facility] [address] [place], [address] Potassium [Moles/Vol] 4.6 mmol/L Normal 3.3-5.1 [facility] Comment on above: Order Comment: Call MD with results STAT Result Comment: Hemo lysis present, Results??could be affected.?? Performed By: #### L 500.2500 ####[facility] [address] [place], [address] Sodium [Moles/Vol] 136 mmol/L Normal 133-145 [facility] Comment on above: Order Comment: Call MD with results STAT Performed By: #### L 500.2500 ####[facility] [address] [place], [address] Urea nitrogen [Mass/Vol] 15 mg/dL Normal 4-19 [facility] Comment on above: Order Comment: Call MD with results STAT Performed By: #### L 500.2500 ####[facility] [address] [place], [address] BUN/CRE 18.2 RATIO Normal 10-20 [facility] Comment on above: Performed By: #### L 500.2500, L501.2450, L501.7300, L100.0100, L500.3400 ####[facility] [address] [place], [address] Calcium [Mass/Vol] 9.3 mg/dL Normal 7.6-11.0 [facility] Comment on above: Performed By: #### L 500.2500, L501.2450, L501.7300, L100.0100, L500.3400 ####[facility] [address] [place], [address] Chloride [Moles/Vol] 95 mmol/L Low 98-108 [facility] Comment on above: Performed By: #### L 500.2500, L501.2450, L501.7300, L100.0100, L500.3400 ####[facility] [address] [place], [address] CO2 [Moles/Vol] 11.4 mmol/L Low 21.0-32.0 [facility] Comment on above: Performed By: #### L 500.2500, L501.2450, L501.7300, L100.0100, L500.3400 ####[facility] [address] [place], [address] Creatinine [Mass/Vol] 0.87 mg/dL Normal 0.70-1.20 [facility] Comment on above: Performed By: #### L 500.2500, L501.2450, L501.7300, L100.0100, L500.3400 ####[facility] [address] [place], [address] ECRCL 98.81 ml/min Normal 50-250 [facility] Comment on above: Performed By: #### L 500.2500, L501.2450, L501.7300, L100.0100, L500.3400 ####[facility] [address] [place], [address] GAP 27 High 5-15 [facility] Comment on above: Performed By: #### L 500.2500, L501.2450, L501.7300, L100.0100, L500.3400 ####[facility] [address] [place], [address] GFR/1.73 sq M.predicted among non-blacks MDRD (S/P/Bld) [Vol rate/Area] 91 mL/min/{1.73_m2} Normal >60 [facility] Comment on above: Result Comment: mL/m in/1.73m2 CKD-EPI Creatinine Equation (2020) Performed By: #### L 500.2500, L501.2450, L501.7300, L100.0100, L500.3400 ####[facility] [address] [place], [address] Glucose [Mass/Vol] 547 mg/dL Invalid Interpretation Code 70-99 [facility] Comment on above: Result Comment: Crit ical Result(s) Called at 0240: by: SUZANNE AGUILERA??Results read back by same. Performed By: #### L 500.2500, L501.2450, L501.7300, L100.0100, L500.3400 ####[facility] [address] [place], [address] Potassium [Moles/Vol] 4.4 mmol/L Normal 3.3-5.1 [facility] Comment on above: Performed By: #### L 500.2500, L501.2450, L501.7300, L100.0100, L500.3400 ####[facility] [address] [place], [address] Sodium [Moles/Vol] 133 mmol/L Normal 133-145 [facility] Comment on above: Performed By: #### L 500.2500, L501.2450, L501.7300, L100.0100, L500.3400 ####[facility] [address] [place], [address] Urea nitrogen [Mass/Vol] 16 mg/dL Normal 4-19 [facility] Comment on above: Performed By: #### L 500.2500, L501.2450, L501.7300, L100.0100, L500.3400 ####[facility] [address] [place], [address] Bedside Glucoseon 03-06-2025 FINGERSTICK GLU 127 mg/dL High 74-106 [facility] Comment on above: Result Comment: EDGAR GEMENT OF PATIENT CARE PER NURSING PROTOCOL Performed By: #### L 501.080 ####[facility] [address] [place], [address] FINGERSTICK GLU 160 mg/dL High 74-106 [facility] Comment on above: Result Comment: EDGAR GEMENT OF PATIENT CARE PER NURSING PROTOCOL Performed By: #### L 501.080 ####[facility] [address] [place], [address] FINGERSTICK GLU 127 mg/dL High 74-106 [facility] Comment on above: Result Comment: EDGAR GEMENT OF PATIENT CARE PER NURSING PROTOCOL Performed By: #### L 501.080 ####[facility] [address] [place], [address] FINGERSTICK GLU 196 mg/dL High 74-106 [facility] Comment on above: Result Comment: EDGAR GEMENT OF PATIENT CARE PER NURSING PROTOCOL Performed By: #### L 501.080 ####[facility] [address] [place], [address] FINGERSTICK GLU 203 mg/dL High 74-106 [facility] Comment on above: Result Comment: Dr Ej foreman FollowedMANAGEMENT OF PATIENT CARE PER NURSING PROTOCOL Performed By: #### L 501.080 ####[facility] [address] [place], [address] FINGERSTICK GLU 231 mg/dL High 74-106 [facility] Comment on above: Result Comment: Dr Ej foreman FollowedMANAGEMENT OF PATIENT CARE PER NURSING PROTOCOL Performed By: #### L 501.080 ####[facility] [address] [place], [address] FINGERSTICK GLU 222 mg/dL High 74-106 [facility] Comment on above: Result Comment: EDGAR GEMENT OF PATIENT CARE PER NURSING PROTOCOL Performed By: #### L 501.080 ####[facility] [address] [place], [address] FINGERSTICK GLU 214 mg/dL High 74-106 [facility] Comment on above: Result Comment: EDGAR GEMENT OF PATIENT CARE PER NURSING PROTOCOL Performed By: #### L 501.080 ####[facility] [address] [place], [place], [address] FINGERSTICK GLU 214 mg/dL High 74-106 [facility] Comment on above: Result Comment: EDGAR GEMENT OF PATIENT CARE PER NURSING PROTOCOL Performed By: #### L 501.080 ####[facility] [address] [place], [address] FINGERSTICK GLU 241 mg/dL High 74-106 [facility] Comment on above: Result Comment: EDGAR GEMENT OF PATIENT CARE PER NURSING PROTOCOL Performed By: #### L 501.080 ####[facility] [address] [place], [address] FINGERSTICK GLU 247 mg/dL High 74-106 [facility] Comment on above: Result Comment: Dr Ej foreman FollowedMANAGEMENT OF PATIENT CARE PER NURSING PROTOCOL Performed By: #### L 501.080 ####[facility] [address] [place], [address] FINGERSTICK GLU 217 mg/dL High [address] [place] [address] Comment on above: Result Comment: EDGAR GEMENT OF PATIENT CARE PER NURSING PROTOCOL Performed By: #### L 501.080 ####[facility] [address] [place], [address] FINGERSTICK GLU 253 mg/dL High -[address] [place] [address] Comment on above: Result Comment: EDGAR GEMENT OF PATIENT CARE PER NURSING PROTOCOL Performed By: #### L 501.080 ####[facility] [address] [place], [address] FINGERSTICK GLU 352 mg/dL High [address] [place] [address] Comment on above: Result Comment: EDGAR GEMENT OF PATIENT CARE PER NURSING PROTOCOL Performed By: #### L 501.080 ####[facility] [address] [place], [address] FINGERSTICK GLU 313 mg/dL High [address] [place] [address] Comment on above: Result Comment: EDGAR GEMENT OF PATIENT CARE PER NURSING PROTOCOL Performed By: #### L 501.080 ####[facility] [address] [place], [address] FINGERSTICK GLU 480 mg/dL Invalid Interpretation Code -[address] [place] [address] Comment on above: Result Comment: EDGAR GEMENT OF PATIENT CARE PER NURSING PROTOCOL Performed By: #### L 501.080 ####[facility] [address] [place], [address] Beta-Hydroxbytyrateon 2024 BETA-HYDROXYBUT 1.7 mmol/L High 0.0-0.3 [facility] Comment on above: Performed By: #### L 501.6901 ####[facility] [address] [place], [address] BETA-HYDROXYBUT 4.2 mmol/L High 0.0-0.3 [facility] Comment on above: Order Comment: FOR N IGHLTY MAINTENANCE, MOVED TO DIFFERENT REQ FOR THATREASON Performed By: #### L 501.6901 ####[facility] [address] [place], [address] CBC W/Diff, Automatedon 02-25 PLT MORPH CLUMPED Normal [facility] Comment on above: Performed By: #### L 100.0100 ####[facility] [address] [place], [address] RED CELL MORPH NORM C+C Normal NORM C C [facility] Comment on above: Performed By: #### L 100.0100 ####[facility] [address] [place], [address] PLT EST ADEQUATE Normal ADEQ [facility] Comment on above: Performed By: #### L 100.0100 ####[facility] [address] [place], [address] SMEAR COMMENT SCANNED Normal [facility] Comment on above: Performed By: #### L 100.0100 ####[facility] [address] [place], [address] Absolute Neut Normal 2.0-7.7 [facility] Comment on above: Result Comment: This specimen has been REJECTED due to Laboratory criteria:Clotted.GENO has been notified of need of recollection.03/06/25 014 [place] Performed By: #### L 500.2500, L501.2450, L501.7300, L100.0100, L500.3400 ####[facility] [address] [place], [address] HCT Normal 37-47 [facility] Comment on above: Result Comment: This specimen has been REJECTED due to Laboratory criteria:Clotted.GENO has been notified of need of recollection.[address] [place] Performed By: #### L 500.2500, L501.2450, L501.7300, L100.0100, L500.3400 ####[facility] [address], [address] HGB Normal 12.0-15.0 [facility] Comment on above: Result Comment: This specimen has been REJECTED due to Laboratory criteria:Clotted.GENO has been notified of need of recollection.03/06/25143 [place] Performed By: #### L 500.2500, L501.2450, L501.7300, L100.0100, L500.3400 ####[facility] [address], [address] MCH Normal 27.0-32.0 [facility] Comment on above: Result Comment: This specimen has been REJECTED due to Laboratory criteria:Clotted.GENO has been notified of need of recollection.03/06/25143 [place] Performed By: #### L 500.2500, L501.2450, L501.7300, L100.0100, L500.3400 ####[facility] [address] [place], [address] MCHC Normal 32-36 [facility] Comment on above: Result Comment: This specimen has been REJECTED due to Laboratory criteria:Clotted.GENO has been notified of need of recollection.03/06/25143 [place] Performed By: #### L 500.2500, L501.2450, L501.7300, L100.0100, L500.3400 ####[facility] [address], [address] MCV Normal 81-99 [facility] Comment on above: Result Comment: This specimen has been REJECTED due to Laboratory criteria:Clotted.GENO has been notified of need of recollection.03/06/25143 [place] Performed By: #### L 500.2500, L501.2450, L501.7300, L100.0100, L500.3400 ####[facility] [address] [place], [address] NEUT% Normal 47-70 [facility] Comment on above: Result Comment: This specimen has been REJECTED due to Laboratory criteria:Clotted.GENO has been notified of need of recollection.03/06/25143 [place] Performed By: #### L 500.2500, L501.2450, L501.7300, L100.0100, L500.3400 ####[facility] [address] [place], [address] PLT Normal 150-450 [facility] Comment on above: Result Comment: This specimen has been REJECTED due to Laboratory criteria:Clotted.GENO has been notified of need of recollection.03/06/25143 [place] Performed By: #### L 500.2500, L501.2450, L501.7300, L100.0100, L500.3400 ####[facility] [address] [place], [address] RBC Normal 4.2-5.4 [facility] Comment on above: Result Comment: This specimen has been REJECTED due to Laboratory criteria:Clotted.GENO has been notified of need of recollection.03/06/25143 [place] Performed By: #### L 500.2500, L501.2450, L501.7300, L100.0100, L500.3400 ####[facility] [address] [place], [address] RDW CV Normal 11.6-14.6 [facility] Comment on above: Result Comment: This specimen has been REJECTED due to Laboratory criteria:Clotted.GENO has been notified of need of recollection.03/06/25143 [place] Performed By: #### L 500.2500, L501.2450, L501.7300, L100.0100, L500.3400 ####[facility] [address] [place], [address] RDW SD Normal 35.1-43.9 [facility] Comment on above: Result Comment: This specimen has been REJECTED due to Laboratory criteria:Clotted.GENO has been notified of need of recollection.03/06/25143 [place] Performed By: #### L 500.2500, L501.2450, L501.7300, L100.0100, L500.3400 ####[facility] [address] [place], [address] WBC Normal 4.4-11.0 [facility] Comment on above: Result Comment: This specimen has been REJECTED due to Laboratory criteria:Clotted.GENO has been notified of need of recollection.03/06/25143 [place] Performed By: #### L 500.2500, L501.2450, L501.7300, L100.0100, L500.3400 ####[facility] [address] [place], [address] Chest PA and Lateralon 03-06 Chest PA and Lateral Normal [facility] Emergency Department Summary on 03-06-2025 Emergency Department Summary Normal [facility] H AND P Exam - Hospitaliston 03-06-2025 H&P Exam - Hospitalist Normal [facility] Lipaseon 03-06-2025 Lipase [Catalytic activity/Vol] 21 U/L Normal 13-75 [facility] Comment on above: Result Comment: Sulma schmitz note:LIPASE revised reference range effective 22.New Lipase methodology. Expected to produce lower valuesthan the previous assay method.NEW Reference Range: 13 - 75 U/L Performed By: #### L 500.2500, L501.2450, L501.7300, L100.0100, L500.3400 ####[facility] [address] [place], [address] Liver Profileon 03-06-2025 Albumin [Mass/Vol] 4.4 g/dL Normal 3.5-5.0 [facility] Comment on above: Performed By: #### L 500.2500, L501.2450, L501.7300, L100.0100, L500.3400 ####[facility] [address] [place], [address] ALK PHOS 85 U/L Normal 35-104 [facility] Comment on above: Performed By: #### L 500.2500, L501.2450, L501.7300, L100.0100, L500.3400 ####[facility] [address] [place], [address] ALT [Catalytic activity/Vol] 11 U/L Normal <=34 [facility] Comment on above: Performed By: #### L 500.2500, L501.2450, L501.7300, L100.0100, L500.3400 ####[facility] [address] [place], [address] AST [Catalytic activity/Vol] 17 U/L Normal <=31 [facility] Comment on above: Performed By: #### L 500.2500, L501.2450, L501.7300, L100.0100, L500.3400 ####[facility] [address] [place], [address] Bilirubin [Mass/Vol] 0.79 mg/dL Normal 0.00-1.30 [facility] Comment on above: Performed By: #### L 500.2500, L501.2450, L501.7300, L100.0100, L500.3400 ####[facility] [address] [place], [address] Bilirubin.direct [Mass/Vol] 0.35 mg/dL High 0.00-0.30 [facility] Comment on above: Performed By: #### L 500.2500, L501.2450, L501.7300, L100.0100, L500.3400 ####[facility] [address] [place], [address] Globulin (S) [Mass/Vol] 2.5 g/dL Normal 2.2-4.2 [facility] Comment on above: Performed By: #### L 500.2500, L501.2450, L501.7300, L100.0100, L500.3400 ####[facility] [address] [place], [address] T PROT 6.9 g/dL Normal 5.9-8.4 [facility] Comment on above: Performed By: #### L 500.2500, L501.2450, L501.7300, L100.0100, L500.3400 ####[facility] [address] [place], [address] Osmolality, Serumon 03-06-20 25 OSMOLALITY,SER 325 mOsm/KG High 275-295 [facility] Comment on above: Performed By: #### L 500.2500, L501.2450, L501.7300, L100.0100, L500.3400 ####[facility] [address] [place], [address] Venous Blood Gason 5 VBG pCO2 8.2 mmHg Invalid Interpretation Code 41-51 [facility] Comment on above: Performed By: #### L 9000.0810 ####[facility] [address] [place], [address] Bedside Glucoseon 5 FINGERSTICK GLU 91 mg/dL Normal 74-106 [facility] Comment on above: Result Comment: EDGAR HUNG OF PATIENT CARE PER NURSING PROTOCOL Performed By: #### L 501.080 ####[facility] [address] [place], [address] Colonoscopy Reporton 07-09-2 025 Colonoscopy Report Normal [facility] EGD Reporton 03-05-2025 EGD Report Normal [facility] Immunohistochemical Stainson 03-05-2025 Immunohistochemical Stains Normal [facility] Comment on above: Performed By: #### P IMHI ####[facility] [address] [place], [address] MR/POSTOP.ANEon 03-05-2025 MR/POSTOP.ANE Normal [facility] MR/FSHUOGQA1gf 03-05-2025 MR/POSTOPAN2 Normal [facility] MR/PAT.ANEon 03-04-2025 MR/PAT.ANE Normal [facility] CBC W/Diff, Automatedon Absolute Lymph 2.23 X10 3/uL Normal 0.83-4.51 [facility] Comment on above: Performed By: #### L 500.4050, L501.5200, L100.0100 ####[facility] [address] [place], [address] Absolute Neut 9.6 X10 3/uL High 2.0-7.7 [facility] Comment on above: Performed By: #### L 500.4050, L501.5200, L100.0100 ####[facility] [address] [place], [address] Basophils/100 WBC (Bld) 0.4 % Normal 0-1 [facility] Comment on above: Performed By: #### L 500.4050, L501.5200, L100.0100 ####[facility] [address] [place], [address] Eosinophils/100 WBC (Bld) 2.7 % Normal 0-5 [facility] Comment on above: Performed By: #### L 500.4050, L501.5200, L100.0100 ####[facility] [address] [place], [address] Erythrocyte distribution width (RBC) [Ratio] 13.7 % Normal 11.6-14.6 [facility] Comment on above: Performed By: #### L 500.4050, L501.5200, L100.0100 ####[facility] [address] [place], [address] Hematocrit (Bld) [Volume fraction] 43.5 % Normal 37-47 [facility] Comment on above: Performed By: #### L 500.4050, L501.5200, L100.0100 ####[facility] [address] [place], [address] Hemoglobin (Bld) [Mass/Vol] 14.2 g/dL Normal 12.0-15.0 [facility] Comment on above: Performed By: #### L 500.4050, L501.5200, L100.0100 ####[facility] [address] [place], [address] IG% 1.800 High 0.0-0.9 [facility] Comment on above: Result Comment: IG% - Immature Granulocytes (promyelocytes, myelocytes andmetamyelocytes) > 1% indicates that a LEFT SHIFT is Present. Performed By: #### L 500.4050, L501.5200, L100.0100 ####[facility] [address] [place], [address] Lymphocytes/100 WBC (Bld) 17.1 % Low 19-41 [facility] Comment on above: Performed By: #### L 500.4050, L501.5200, L100.0100 ####[facility] [address] [place], [address] MCH (RBC) [Entitic mass] 29.3 pg Normal 27.0-32.0 [facility] Comment on above: Performed By: #### L 500.4050, L501.5200, L100.0100 ####[facility] [address] [place], [address] MCHC (RBC) [Mass/Vol] 32.6 g/dL Normal 32-36 [facility] Comment on above: Performed By: #### L 500.4050, L501.5200, L100.0100 ####[facility] [address] [place], [address] MCV (RBC) [Entitic vol] 89.9 fL Normal 81-99 [facility] Comment on above: Performed By: #### L 500.4050, L501.5200, L100.0100 ####[facility] [address] [place], [address] Monocytes/100 WBC (Bld) 4.6 % Normal 0-10 [facility] Comment on above: Performed By: #### L 500.4050, L501.5200, L100.0100 ####[facility] [address] [place], [address] Neutrophils/100 WBC (Bld) 73.4 % High 47-70 [facility] Comment on above: Performed By: #### L 500.4050, L501.5200, L100.0100 ####[facility] [address] [place], [address] Nucleated RBC (Bld) [#/Vol] 0 10*3/uL Normal 0-5 [facility] Comment on above: Performed By: #### L 500.4050, L501.5200, L100.0100 ####[facility] [address] [place], [address] Platelet mean volume (Bld) [Entitic vol] 12.2 fL High 6.2-12.0 [facility] Comment on above: Performed By: #### L 500.4050, L501.5200, L100.0100 ####[facility] [address] [place], [address] Platelets (Bld) [#/Vol] 201 10*3/uL Normal 150-450 [facility] Comment on above: Performed By: #### L 500.4050, L501.5200, L100.0100 ####[facility] [address] [place], [address] RBC (Bld) [#/Vol] 4.84 10*6/uL Normal 4.2-5.4 [facility] Comment on above: Performed By: #### L 500.4050, L501.5200, L100.0100 ####[facility] [address] [place], [address] RDW SD 44.5 fl High 35.1-43.9 [facility] Comment on above: Performed By: #### L 500.4050, L501.5200, L100.0100 ####[facility] [address] [place], [address] WBC (Bld) [#/Vol] 13.1 10*3/uL High 4.4-11.0 [facility] Comment on above: Performed By: #### L 500.4050, L501.5200, L100.0100 ####[facility] [address] [place], [address] Comprehensive Metabolic Prof rion 02-25-2025 Albumin [Mass/Vol] 4.2 g/dL Normal 3.5-5.0 [facility] Comment on above: Performed By: #### L 500.4050, L501.5200, L100.0100 ####[facility] [address] [place], [address] Albumin/Globulin [Mass ratio] 1.6 {ratio} Normal 0.9-2.4 [facility] Comment on above: Performed By: #### L 500.4050, L501.5200, L100.0100 ####[facility] [address] [place], [address] ALK PHOS 77 U/L Normal 35-104 [facility] Comment on above: Performed By: #### L 500.4050, L501.5200, L100.0100 ####[facility] [address] [place], [address] ALT [Catalytic activity/Vol] 7 U/L Normal <=34 [facility] Comment on above: Performed By: #### L 500.4050, L501.5200, L100.0100 ####[facility] [address] [place], [address] AST [Catalytic activity/Vol] 15 U/L Normal <=31 [facility] Comment on above: Performed By: #### L 500.4050, L501.5200, L100.0100 ####[facility] [address] [place], [address] Bilirubin [Mass/Vol] 0.71 mg/dL Normal 0.00-1.30 [facility] Comment on above: Performed By: #### L 500.4050, L501.5200, L100.0100 ####[facility] [address] [place], [address] BUN/CRE 18.7 RATIO Normal 10-20 [facility] Comment on above: Performed By: #### L 500.4050, L501.5200, L100.0100 ####[facility] [address] [place], [address] Calcium [Mass/Vol] 9.2 mg/dL Normal 7.6-11.0 [facility] Comment on above: Performed By: #### L 500.4050, L501.5200, L100.0100 ####[facility] [address] [place], [address] Chloride [Moles/Vol] 104 mmol/L Normal 98-108 [facility] Comment on above: Performed By: #### L 500.4050, L501.5200, L100.0100 ####[facility] [address] [place], [address] CO2 [Moles/Vol] 20.2 mmol/L Low 21.0-32.0 [facility] Comment on above: Performed By: #### L 500.4050, L501.5200, L100.0100 ####[facility] [address] [place], [address] Creatinine [Mass/Vol] 0.63 mg/dL Low 0.70-1.20 [facility] Comment on above: Performed By: #### L 500.4050, L501.5200, L100.0100 ####[facility] [address] [place], [address] GAP 14 Normal 5-15 [facility] Comment on above: Performed By: #### L 500.4050, L501.5200, L100.0100 ####[facility] [address] [place], [address] GFR/1.73 sq M.predicted among non-blacks MDRD (S/P/Bld) [Vol rate/Area] 122 mL/min/{1.73_m2} Normal >60 [facility] Comment on above: Result Comment: mL/m in/1.73m2 CKD-EPI Creatinine Equation (2020) Performed By: #### L 500.4050, L501.5200, L100.0100 ####[facility] [address] [place], [address] Globulin (S) [Mass/Vol] 2.6 g/dL Normal 2.2-4.2 [facility] Comment on above: Performed By: #### L 500.4050, L501.5200, L100.0100 ####[facility] [address] [place], [address] Glucose [Mass/Vol] 153 mg/dL High 70-99 [facility] Comment on above: Performed By: #### L 500.4050, L501.5200, L100.0100 ####[facility] [address] [place], [address] Potassium [Moles/Vol] 3.9 mmol/L Normal 3.3-5.1 [facility] Comment on above: Performed By: #### L 500.4050, L501.5200, L100.0100 ####[facility] [address] [place], [address] Sodium [Moles/Vol] 138 mmol/L Normal 133-145 [facility] Comment on above: Performed By: #### L 500.4050, L501.5200, L100.0100 ####[facility] [address] [place], [address] T PROT 6.7 g/dL Normal 5.9-8.4 [facility] Comment on above: Performed By: #### L 500.4050, L501.5200, L100.0100 ####[facility] [address] [place], [address] Urea nitrogen [Mass/Vol] 12 mg/dL Normal 4-19 [facility] Comment on above: Performed By: #### L 500.4050, L501.5200, L100.0100 ####[facility] [address] [place], [address] Magnesiumon 02-25-2025 Magnesium [Mass/Vol] 2.2 mg/dL Normal 1.5-2.2 [facility] Comment on above: Performed By: #### L 500.4050, L501.5200, L100.0100 ####[facility] [address] [place], [address] Discharge Instructionon 01-27 Discharge Instruction Normal [facility] Basic Metabolic Profile (BMP )on 02-20-2025 BUN Normal 4-19 [facility] Comment on above: Result Comment: Canc elled via OM: Order cancelled - Patient discharged Performed By: #### L 100.0500, L500.2500 ####[facility] [address] [place], [address] BUN/CRE Normal 10-20 [facility] Comment on above: Result Comment: Canc elled via OM: Order cancelled - Patient discharged Performed By: #### L 100.0500, L500.2500 ####[facility] [address] [place], [address] Calcium Normal 7.6-11.0 [facility] Comment on above: Result Comment: Canc elled via OM: Order cancelled - Patient discharged Performed By: #### L 100.0500, L500.2500 ####[facility] [address] [place], [address] CL Normal 98-108 [facility] Comment on above: Result Comment: Canc elled via OM: Order cancelled - Patient discharged Performed By: #### L 100.0500, L500.2500 ####[facility] [address] [place], [address] CO2 Normal 21.0-32.0 [facility] Comment on above: Result Comment: Canc elled via OM: Order cancelled - Patient discharged Performed By: #### L 100.0500, L500.2500 ####[facility] [address] [place], [address] CREAT,SERUM Normal 0.70-1.20 [facility] Comment on above: Result Comment: Canc elled via OM: Order cancelled - Patient discharged Performed By: #### L 100.0500, L500.2500 ####[facility] [address] [place], [address] eGFR Normal >60 [facility] Comment on above: Result Comment: Canc elled via OM: Order cancelled - Patient discharged Performed By: #### L 100.0500, L500.2500 ####[facility] [address] [place], [address] GAP Normal 5-15 [facility] Comment on above: Result Comment: Canc elled via OM: Order cancelled - Patient discharged Performed By: #### L 100.0500, L500.2500 ####[facility] [address] [place], [address] GLU Normal 70-99 [facility] Comment on above: Result Comment: Canc elled via OM: Order cancelled - Patient discharged Performed By: #### L 100.0500, L500.2500 ####[facility] [address] [place], [address] Potassium Normal 3.3-5.1 [facility] Comment on above: Result Comment: Canc elled via OM: Order cancelled - Patient discharged Performed By: #### L 100.0500, L500.2500 ####[facility] [address] [place], [address] Basic Metabolic Profile (BMP) Normal 133-145 [facility] Comment on above: Result Comment: Canc elled via OM: Order cancelled - Patient discharged Performed By: #### L 100.0500, L500.2500 ####[facility] [address] [place], [address] Bedside Glucoseon 02-20-2025 FINGERSTICK GLU 143 mg/dL High 74-106 [facility] Comment on above: Result Comment: EDGAR HUNG OF PATIENT CARE PER NURSING PROTOCOL Performed By: #### L 501.080 ####[facility] [address] [place], [address] CBC-Complete Blood Cnt No Di ffon 02-20-2025 HCT Normal 37-47 [facility] Comment on above: Result Comment: Canc elled via OM: Order cancelled - Patient discharged Performed By: #### L 100.0500, L500.2500 ####[facility] [address] [place], [address] HGB Normal 12.0-15.0 [facility] Comment on above: Result Comment: Canc elled via OM: Order cancelled - Patient discharged Performed By: #### L 100.0500, L500.2500 ####[facility] [address] [place], [address] MCH Normal 27.0-32.0 [facility] Comment on above: Result Comment: Canc elled via OM: Order cancelled - Patient discharged Performed By: #### L 100.0500, L500.2500 ####[facility] [address] [place], [address] MCHC Normal 32-36 [facility] Comment on above: Result Comment: Canc elled via OM: Order cancelled - Patient discharged Performed By: #### L 100.0500, L500.2500 ####[facility] [address] [place], [address] MCV Normal 81-99 [facility] Comment on above: Result Comment: Canc elled via OM: Order cancelled - Patient discharged Performed By: #### L 100.0500, L500.2500 ####[facility] [address] [place], [address] PLT Normal 150-450 [facility] Comment on above: Result Comment: Canc elled via OM: Order cancelled - Patient discharged Performed By: #### L 100.0500, L500.2500 ####[facility] [address] [place], [address] RBC Normal 4.2-5.4 [facility] Comment on above: Result Comment: Canc elled via OM: Order cancelled - Patient discharged Performed By: #### L 100.0500, L500.2500 ####[facility] [address] [place], [address] RDW CV Normal 11.6-14.6 [facility] Comment on above: Result Comment: Canc elled via OM: Order cancelled - Patient discharged Performed By: #### L 100.0500, L500.2500 ####[facility] [address] [place], [address] RDW SD Normal 35.1-43.9 [facility] Comment on above: Result Comment: Canc elled via OM: Order cancelled - Patient discharged Performed By: #### L 100.0500, L500.2500 ####[facility] [address] [place], [address] WBC Normal 4.4-11.0 [facility] Comment on above: Result Comment: Canc elled via OM: Order cancelled - Patient discharged Performed By: #### L 100.0500, L500.2500 ####[facility] [address] [place], [address] Basic Metabolic Profile (BMP )on 02-19-2025 BUN Normal 4-19 [facility] Comment on above: Result Comment: Canc elled via OM: insulin off Performed By: #### L 500.2500 ####[facility] [address] [place], [address] Order Comment: Call MD with results STAT Result Comment: Canc elled via OM: MD Ordered Result Comment: OM C RUPALI REQUEST BUN/CRE Normal 10-20 [facility] Comment on above: Result Comment: Canc elled via OM: insulin off Performed By: #### L 500.2500 ####[facility] [address] [place], [address] Order Comment: Call MD with results STAT Result Comment: Canc elled via OM: MD Ordered Result Comment: OM C ANCEL REQUEST Calcium Normal 7.6-11.0 [facility] Comment on above: Result Comment: Canc elled via OM: insulin off Performed By: #### L 500.2500 ####[facility] [address] [place], [address] Order Comment: Call MD with results STAT Result Comment: Canc elled via OM: MD Ordered Result Comment: OM C ANCEL REQUEST CL Normal 98-108 [facility] Comment on above: Result Comment: Canc elled via OM: insulin off Performed By: #### L 500.2500 ####[facility] [address] [place], [address] Order Comment: Call MD with results STAT Result Comment: Canc elled via OM: MD Ordered Result Comment: OM C ANCEL REQUEST CO2 Normal 21.0-32.0 [facility] Comment on above: Result Comment: Canc elled via OM: insulin off Performed By: #### L 500.2500 ####[facility] [address] [place], [place], [address] Order Comment: Call MD with results STAT Result Comment: Canc elled via OM: MD Ordered Result Comment: OM C ANCEL REQUEST CREAT,SERUM Normal 0.70-1.20 [facility] Comment on above: Result Comment: Canc elled via OM: insulin off Performed By: #### L 500.2500 ####[facility] [address] [place], [address] Order Comment: Call MD with results STAT Result Comment: Canc elled via OM: MD Ordered Result Comment: OM C ANCEL REQUEST eGFR Normal >60 [facility] Comment on above: Result Comment: Canc elled via OM: insulin off Performed By: #### L 500.2500 ####[facility] [address] [place], [address] Order Comment: Call MD with results STAT Result Comment: Canc elled via OM: MD Ordered Result Comment: OM C ANCEL REQUEST GAP Normal 5-15 [facility] Comment on above: Result Comment: Canc elled via OM: insulin off Performed By: #### L 500.2500 ####[facility] [address] [place], [address] Order Comment: Call MD with results STAT Result Comment: Canc elled via OM: MD Ordered Result Comment: OM C ANCEL REQUEST GLU Normal 70-99 [facility] Comment on above: Result Comment: Canc elled via OM: insulin off Performed By: #### L 500.2500 ####[facility] [address] [place], [address] Order Comment: Call MD with results STAT Result Comment: Canc elled via OM: MD Ordered Result Comment: OM C ANCEL REQUEST Potassium Normal 3.3-5.1 [facility] Comment on above: Result Comment: Canc elled via OM: insulin off Performed By: #### L 500.2500 ####[facility] [address] [place], [address] Order Comment: Call MD with results STAT Result Comment: Canc elled via OM: MD Ordered Result Comment: OM C ANCEL REQUEST Basic Metabolic Profile (BMP) Normal 133-145 [facility] Comment on above: Result Comment: Canc elled via OM: insulin off Performed By: #### L 500.2500 ####[facility] [address] [place], [address] Order Comment: Call MD with results STAT Result Comment: Canc elled via OM: MD Ordered Result Comment: OM C ANCEL REQUEST BUN/CRE 8.8 RATIO Low 10-20 [facility] Comment on above: Performed By: #### L 500.2500 ####[facility] [address] [place], [address] Calcium [Mass/Vol] 8.5 mg/dL Normal 7.6-11.0 [facility] Comment on above: Performed By: #### L 500.2500 ####[facility] [address] [place], [address] Chloride [Moles/Vol] 107 mmol/L Normal 98-108 [facility] Comment on above: Performed By: #### L 500.2500 ####[facility] [address] [place], [address] CO2 [Moles/Vol] 18.6 mmol/L Low 21.0-32.0 [facility] Comment on above: Performed By: #### L 500.2500 ####[facility] [address] [place], [address] Creatinine [Mass/Vol] 0.63 mg/dL Low 0.70-1.20 [facility] Comment on above: Performed By: #### L 500.2500 ####[facility] [address] [place], [address] ECRCL 136.46 ml/min Normal 50-250 [facility] Comment on above: Performed By: #### L 500.2500 ####[facility] [address] [place], [address] GAP 13 Normal 5-15 [facility] Comment on above: Performed By: #### L 500.2500 ####[facility] [address] [place], [address] GFR/1.73 sq M.predicted among non-blacks MDRD (S/P/Bld) [Vol rate/Area] 122 mL/min/{1.73_m2} Normal >60 [facility] Comment on above: Result Comment: mL/m in/1.73m2 CKD-EPI Creatinine Equation (2020) Performed By: #### L 500.2500 ####[facility] [address] [place], [address] Glucose [Mass/Vol] 249 mg/dL High 70-99 [facility] Comment on above: Performed By: #### L 500.2500 ####[facility] [address] [place], [address] Potassium [Moles/Vol] 4.1 mmol/L Normal 3.3-5.1 [facility] Comment on above: Performed By: #### L 500.2500 ####[facility] [address] [place], [address] Sodium [Moles/Vol] 138 mmol/L Normal 133-145 [facility] Comment on above: Performed By: #### L 500.2500 ####[facility] [address] [place], [address] Urea nitrogen [Mass/Vol] 6 mg/dL Normal 4-19 [facility] Comment on above: Performed By: #### L 500.2500 ####[facility] [address] [place], [address] BUN/CRE 10.8 RATIO Normal 10-20 [facility] Comment on above: Performed By: #### L 501.5200, L100.0100, L500.2500 ####[facility] [address] [place], [address] Calcium [Mass/Vol] 8.0 mg/dL Normal 7.6-11.0 [facility] Comment on above: Performed By: #### L 501.5200, L100.0100, L500.2500 ####[facility] [address] [place], [address] Chloride [Moles/Vol] 112 mmol/L High 98-108 [facility] Comment on above: Performed By: #### L 501.5200, L100.0100, L500.2500 ####[facility] [address] [place], [address] CO2 [Moles/Vol] 17.1 mmol/L Low 21.0-32.0 [facility] Comment on above: Performed By: #### L 501.5200, L100.0100, L500.2500 ####[facility] [address] [place], [address] Creatinine [Mass/Vol] 0.57 mg/dL Low 0.70-1.20 [facility] Comment on above: Performed By: #### L 501.5200, L100.0100, L500.2500 ####[facility] [address] [place], [address] ECRCL 150.82 ml/min Normal 50-250 [facility] Comment on above: Performed By: #### L 501.5200, L100.0100, L500.2500 ####[facility] [address] [place], [address] GAP 10 Normal 5-15 [facility] Comment on above: Performed By: #### L 501.5200, L100.0100, L500.2500 ####[facility] [address] [place], [address] GFR/1.73 sq M.predicted among non-blacks MDRD (S/P/Bld) [Vol rate/Area] 126 mL/min/{1.73_m2} Normal >60 [facility] Comment on above: Result Comment: mL/m in/1.73m2 CKD-EPI Creatinine Equation (2020) Performed By: #### L 501.5200, L100.0100, L500.2500 ####[facility] [address] [place], [address] Glucose [Mass/Vol] 81 mg/dL Normal 70-99 [facility] Comment on above: Performed By: #### L 501.5200, L100.0100, L500.2500 ####[facility] [address] [place], [address] Potassium [Moles/Vol] 4.0 mmol/L Normal 3.3-5.1 [facility] Comment on above: Result Comment: Hemo lysis present, Results??could be affected.?? Performed By: #### L 501.5200, L100.0100, L500.2500 ####[facility] [address] [place], [address] Sodium [Moles/Vol] 139 mmol/L Normal 133-145 [facility] Comment on above: Performed By: #### L 501.5200, L100.0100, L500.2500 ####[facility] [address] [place], [address] Urea nitrogen [Mass/Vol] 6 mg/dL Normal 4-19 [facility] Comment on above: Performed By: #### L 501.5200, L100.0100, L500.2500 ####[facility] [address] [place], [address] BUN Normal 4-19 [facility] Comment on above: Order Comment: Call MD with results STAT Result Comment: OM C ANCEL REQUEST Performed By: #### L 500.2500 ####[facility] [address] [place], [address] BUN/CRE Normal 10-20 [facility] Comment on above: Order Comment: Call MD with results STAT Result Comment: OM C ANCEL REQUEST Performed By: #### L 500.2500 ####[facility] [address] [place], [address] Calcium Normal 7.6-11.0 [facility] Comment on above: Order Comment: Call MD with results STAT Result Comment: OM C ANCEL REQUEST Performed By: #### L 500.2500 ####[facility] [address] [place], [address] CL Normal 98-108 [facility] Comment on above: Order Comment: Call MD with results STAT Result Comment: OM C ANCEL REQUEST Performed By: #### L 500.2500 ####[facility] [address] [place], [address] CO2 Normal 21.0-32.0 [facility] Comment on above: Order Comment: Call MD with results STAT Result Comment: OM C ANCEL REQUEST Performed By: #### L 500.2500 ####[facility] [address] [place], [address] CREAT,SERUM Normal 0.70-1.20 [facility] Comment on above: Order Comment: Call MD with results STAT Result Comment: OM C ANCEL REQUEST Performed By: #### L 500.2500 ####[facility] [address] [place], [address] eGFR Normal >60 [facility] Comment on above: Order Comment: Call MD with results STAT Result Comment: OM C ANCEL REQUEST Performed By: #### L 500.2500 ####[facility] [address] [place], [address] GAP Normal 5-15 [facility] Comment on above: Order Comment: Call MD with results STAT Result Comment: OM C ANCEL REQUEST Performed By: #### L 500.2500 ####[facility] [address] [place], [address] GLU Normal 70-99 [facility] Comment on above: Order Comment: Call MD with results STAT Result Comment: OM C ANCEL REQUEST Performed By: #### L 500.2500 ####[facility] [address] [place], [address] Potassium Normal 3.3-5.1 [facility] Comment on above: Order Comment: Call MD with results STAT Result Comment: OM C ANCEL REQUEST Performed By: #### L 500.2500 ####[facility] [address] [place], [address] Basic Metabolic Profile (BMP) Normal 133-145 [facility] Comment on above: Order Comment: Call MD with results STAT Result Comment: OM C ANCEL REQUEST Performed By: #### L 500.2500 ####[facility] [address] [place], [address] BUN/CRE 13.3 RATIO Normal 10-20 [facility] Comment on above: Order Comment: Call MD with results STAT Performed By: #### L 500.2500 ####[facility] [address] [place], [address] Calcium [Mass/Vol] 8.1 mg/dL Normal 7.6-11.0 [facility] Comment on above: Order Comment: Call MD with results STAT Performed By: #### L 500.2500 ####[facility] [address] [place], [address] Chloride [Moles/Vol] 108 mmol/L Normal 98-108 [facility] Comment on above: Order Comment: Call MD with results STAT Performed By: #### L 500.2500 ####[facility] [address] [place], [address] CO2 [Moles/Vol] 17.8 mmol/L Low 21.0-32.0 [facility] Comment on above: Order Comment: Call MD with results STAT Performed By: #### L 500.2500 ####[facility] [address] [place], [address] Creatinine [Mass/Vol] 0.56 mg/dL Low 0.70-1.20 [facility] Comment on above: Order Comment: Call MD with results STAT Performed By: #### L 500.2500 ####[facility] [address] [place], [address] ECRCL 153.51 ml/min Normal 50-250 [facility] Comment on above: Order Comment: Call MD with results STAT Performed By: #### L 500.2500 ####[facility] [address] [place], [address] GAP 12 Normal 5-15 [facility] Comment on above: Order Comment: Call MD with results STAT Performed By: #### L 500.2500 ####[facility] [address], [address] GFR/1.73 sq M.predicted among non-blacks MDRD (S/P/Bld) [Vol rate/Area] 126 mL/min/{1.73_m2} Normal >60 [facility] Comment on above: Order Comment: Call MD with results STAT Result Comment: mL/m in/1.73m2 CKD-EPI Creatinine Equation (2020) Performed By: #### L 500.2500 ####[facility] [address] [place], [address] Glucose [Mass/Vol] 126 mg/dL High 70-99 [facility] Comment on above: Order Comment: Call MD with results STAT Performed By: #### L 500.2500 ####[facility] [address] [place], [address] Potassium [Moles/Vol] 3.7 mmol/L Normal 3.3-5.1 [facility] Comment on above: Order Comment: Call MD with results STAT Performed By: #### L 500.2500 ####[facility] [address] [place], [address] Sodium [Moles/Vol] 137 mmol/L Normal 133-145 [facility] Comment on above: Order Comment: Call MD with results STAT Performed By: #### L 500.2500 ####[facility] [address] [place], [address] Urea nitrogen [Mass/Vol] 7 mg/dL Normal 4-19 [facility] Comment on above: Order Comment: Call MD with results STAT Performed By: #### L 500.2500 ####[facility] [address] [place], [address] Bedside Glucoseon 06-25-2025 FINGERSTICK GLU 141 mg/dL High 74-106 [facility] Comment on above: Result Comment: EDGAR GEMENT OF PATIENT CARE PER NURSING PROTOCOL Performed By: #### L 501.080 ####[facility] [address] [place], [address] FINGERSTICK GLU 222 mg/dL High 74-106 [facility] Comment on above: Result Comment: EDGAR GEMENT OF PATIENT CARE PER NURSING PROTOCOL Performed By: #### L 501.080 ####[facility] [address] [place], [address] FINGERSTICK GLU 242 mg/dL High 74-106 [facility] Comment on above: Result Comment: EDGAR GEMENT OF PATIENT CARE PER NURSING PROTOCOL Performed By: #### L 501.080 ####[facility] [address] [place], [address] FINGERSTICK GLU 146 mg/dL High 74-106 [facility] Comment on above: Result Comment: EDGAR GEMENT OF PATIENT CARE PER NURSING PROTOCOL Performed By: #### L 501.080 ####[facility] [address] [place], [address] FINGERSTICK GLU 59 mg/dL Low 74-106 [facility] Comment on above: Result Comment: EDGAR GEMENT OF PATIENT CARE PER NURSING PROTOCOL Performed By: #### L 501.080 ####[facility] [address] [place], [address] FINGERSTICK GLU 93 mg/dL Normal 74-106 [facility] Comment on above: Result Comment: EDGAR GEMENT OF PATIENT CARE PER NURSING PROTOCOL Performed By: #### L 501.080 ####[facility] [address] [place], [address] FINGERSTICK GLU 143 mg/dL High 74-106 [facility] Comment on above: Result Comment: EDGAR GEMENT OF PATIENT CARE PER NURSING PROTOCOL Performed By: #### L 501.080 ####[facility] [address] [place], [address] FINGERSTICK GLU 59 mg/dL Low 74-106 [facility] Comment on above: Result Comment: EDGAR GEMENT OF PATIENT CARE PER NURSING PROTOCOL Performed By: #### L 501.080 ####[facility] [address] [place], [address] FINGERSTICK GLU 76 mg/dL Normal 74-106 [facility] Comment on above: Result Comment: EDGAR GEMENT OF PATIENT CARE PER NURSING PROTOCOL Performed By: #### L 501.080 ####[facility] [address] [place], [address] FINGERSTICK GLU 89 mg/dL Normal 74-106 [facility] Comment on above: Result Comment: EDGAR GEMENT OF PATIENT CARE PER NURSING PROTOCOL Performed By: #### L 501.080 ####[facility] [address] [place], [address] FINGERSTICK GLU 118 mg/dL High 74-106 [facility] Comment on above: Result Comment: EDGAR GEMENT OF PATIENT CARE PER NURSING PROTOCOL Performed By: #### L 501.080 ####[facility] [address] [place], [address] FINGERSTICK GLU 111 mg/dL High 74-106 [facility] Comment on above: Result Comment: EDGAR GEMENT OF PATIENT CARE PER NURSING PROTOCOL Performed By: #### L 501.080 ####[facility] [address] [place], [address] FINGERSTICK GLU 123 mg/dL High 74-106 [facility] Comment on above: Result Comment: EDGAR GEMENT OF PATIENT CARE PER NURSING PROTOCOL Performed By: #### L 501.080 ####[facility] [address] [place], [address] CBC W/Diff, Automatedon 01-27 Absolute Lymph 1.08 X10 3/uL Normal 0.83-4.51 [facility] Comment on above: Performed By: #### L 501.5200, L100.0100, L500.2500 ####[facility] [address] [place], [address] Absolute Neut 18.3 X10 3/uL High 2.0-7.7 [facility] Comment on above: Performed By: #### L 501.5200, L100.0100, L500.2500 ####[facility] [address] [place], [address] Basophils/100 WBC (Bld) 0.2 % Normal 0-1 [facility] Comment on above: Performed By: #### L 501.5200, L100.0100, L500.2500 ####[facility] [address] [place], [address] Eosinophils/100 WBC (Bld) 0.0 % Normal 0-5 [facility] Comment on above: Performed By: #### L 501.5200, L100.0100, L500.2500 ####[facility] [address] [place], [address] Erythrocyte distribution width (RBC) [Ratio] 13.4 % Normal 11.6-14.6 [facility] Comment on above: Performed By: #### L 501.5200, L100.0100, L500.2500 ####[facility] [address] [place], [address] Hematocrit (Bld) [Volume fraction] 35.4 % Low 37-47 [facility] Comment on above: Performed By: #### L 501.5200, L100.0100, L500.2500 ####[facility] [address] [place], [address] Hemoglobin (Bld) [Mass/Vol] 11.8 g/dL Low 12.0-15.0 [facility] Comment on above: Performed By: #### L 501.5200, L100.0100, L500.2500 ####[facility] [address] [place], [address] IG% 1.000 High 0.0-0.9 [facility] Comment on above: Result Comment: IG% - Immature Granulocytes (promyelocytes, myelocytes andmetamyelocytes) > 1% indicates that a LEFT SHIFT is Present. Performed By: #### L 501.5200, L100.0100, L500.2500 ####[facility] [address] [place], [address] Lymphocytes/100 WBC (Bld) 5.3 % Low 19-41 [facility] Comment on above: Performed By: #### L 501.5200, L100.0100, L500.2500 ####[facility] [address] [place], [address] MCH (RBC) [Entitic mass] 29.7 pg Normal 27.0-32.0 [facility] Comment on above: Performed By: #### L 501.5200, L100.0100, L500.2500 ####[facility] [address] [place], [address] MCHC (RBC) [Mass/Vol] 33.3 g/dL Normal 32-36 [facility] Comment on above: Performed By: #### L 501.5200, L100.0100, L500.2500 ####[facility] [address] [place], [address] MCV (RBC) [Entitic vol] 89.2 fL Normal 81-99 [facility] Comment on above: Performed By: #### L 501.5200, L100.0100, L500.2500 ####[facility] [address] [place], [address] Monocytes/100 WBC (Bld) 4.1 % Normal 0-10 [facility] Comment on above: Performed By: #### L 501.5200, L100.0100, L500.2500 ####[facility] [address] [place], [address] Neutrophils/100 WBC (Bld) 89.4 % High 47-70 [facility] Comment on above: Performed By: #### L 501.5200, L100.0100, L500.2500 ####[facility] [address] [place], [address] Nucleated RBC (Bld) [#/Vol] 0 10*3/uL Normal 0-5 [facility] Comment on above: Performed By: #### L 501.5200, L100.0100, L500.2500 ####[facility] [address] [place], [address] Platelet mean volume (Bld) [Entitic vol] 11.5 fL Normal 6.2-12.0 [facility] Comment on above: Performed By: #### L 501.5200, L100.0100, L500.2500 ####[facility] [address] [place], [address] Platelets (Bld) [#/Vol] 188 10*3/uL Normal 150-450 [facility] Comment on above: Performed By: #### L 501.5200, L100.0100, L500.2500 ####[facility] [address] [place], [address] RBC (Bld) [#/Vol] 3.97 10*6/uL Low 4.2-5.4 [facility] Comment on above: Performed By: #### L 501.5200, L100.0100, L500.2500 ####[facility] [address] [place], [address] RDW SD 43.9 fl Normal 35.1-43.9 [facility] Comment on above: Performed By: #### L 501.5200, L100.0100, L500.2500 ####[facility] [address] [place], [address] WBC (Bld) [#/Vol] 20.5 10*3/uL High 4.4-11.0 [facility] Comment on above: Performed By: #### L 501.5200, L100.0100, L500.2500 ####[facility] [address] [place], [address] Magnesiumon 02-19-2025 Magnesium [Mass/Vol] 2.9 mg/dL High 1.5-2.2 [facility] Comment on above: Performed By: #### L 501.5200, L100.0100, L500.2500 ####[facility] [address] [place], [address] 12 Lead EKGon 02-18-2025 12 Lead EKG Normal [facility] Basic Metabolic Profile (BMP )on 02-18-2025 BUN/CRE 16.4 RATIO Normal 10-20 [facility] Comment on above: Order Comment: Call MD with results STAT Performed By: #### L 500.2500 ####[facility] [address] [place], [address] Calcium [Mass/Vol] 7.8 mg/dL Normal 7.6-11.0 [facility] Comment on above: Order Comment: Call MD with results STAT Performed By: #### L 500.2500 ####[facility] [address] [place], [address] Chloride [Moles/Vol] 107 mmol/L Normal 98-108 [facility] Comment on above: Order Comment: Call MD with results STAT Performed By: #### L 500.2500 ####[facility] [address] [place], [address] CO2 [Moles/Vol] 17.2 mmol/L Low 21.0-32.0 [facility] Comment on above: Order Comment: Call MD with results STAT Performed By: #### L 500.2500 ####[facility] [address] [place], [address] Creatinine [Mass/Vol] 0.57 mg/dL Low 0.70-1.20 [facility] Comment on above: Order Comment: Call MD with results STAT Performed By: #### L 500.2500 ####[facility] [address] [place], [address] ECRCL 150.82 ml/min Normal 50-250 [facility] Comment on above: Order Comment: Call MD with results STAT Performed By: #### L 500.2500 ####[facility] [address] [place], [address] GAP 12 Normal 5-15 [facility] Comment on above: Order Comment: Call MD with results STAT Performed By: #### L 500.2500 ####[facility] [address] [place], [address] GFR/1.73 sq M.predicted among non-blacks MDRD (S/P/Bld) [Vol rate/Area] 125 mL/min/{1.73_m2} Normal >60 [facility] Comment on above: Order Comment: Call MD with results STAT Result Comment: mL/m in/1.73m2 CKD-EPI Creatinine Equation (2020) Performed By: #### L 500.2500 ####[facility] [address] [place], [address] Glucose [Mass/Vol] 111 mg/dL High 70-99 [facility] Comment on above: Order Comment: Call MD with results STAT Performed By: #### L 500.2500 ####[facility] [address] [place], [address] Potassium [Moles/Vol] 3.9 mmol/L Normal 3.3-5.1 [facility] Comment on above: Order Comment: Call MD with results STAT Performed By: #### L 500.2500 ####[facility] [address] [place], [address] Sodium [Moles/Vol] 137 mmol/L Normal 133-145 [facility] Comment on above: Order Comment: Call MD with results STAT Performed By: #### L 500.2500 ####[facility] [address] [place], [address] Urea nitrogen [Mass/Vol] 9 mg/dL Normal 4-19 [facility] Comment on above: Order Comment: Call MD with results STAT Performed By: #### L 500.2500 ####[facility] [address] [place], [address] Bedside Glucoseon 02-18-2025 FINGERSTICK GLU 125 mg/dL High 74-106 [facility] Comment on above: Result Comment: EDGAR GEMENT OF PATIENT CARE PER NURSING PROTOCOL Performed By: #### L 501.080 ####[facility] [address] [place], [address] FINGERSTICK GLU 121 mg/dL High 74-106 [facility] Comment on above: Result Comment: EDGAR GEMENT OF PATIENT CARE PER NURSING PROTOCOL Performed By: #### L 501.080 ####[facility] [address] [place], [address] FINGERSTICK GLU 93 mg/dL Normal 74-106 [facility] Comment on above: Result Comment: EDGAR GEMENT OF PATIENT CARE PER NURSING PROTOCOL Performed By: #### L 501.080 ####[facility] [address] [place], [address] FINGERSTICK GLU 97 mg/dL Normal 74-106 [facility] Comment on above: Result Comment: EDGAR GEMENT OF PATIENT CARE PER NURSING PROTOCOL Performed By: #### L 501.080 ####[facility] [address] [place], [address] FINGERSTICK GLU 144 mg/dL High 74-106 [facility] Comment on above: Result Comment: EDGAR GEMENT OF PATIENT CARE PER NURSING PROTOCOL Performed By: #### L 501.080 ####[facility] [address] [place], [address] FINGERSTICK GLU 265 mg/dL High 74-106 [facility] Comment on above: Result Comment: EDGAR GEMENT OF PATIENT CARE PER NURSING PROTOCOL Performed By: #### L 501.080 ####[facility] [address] [place], [address] Beta-Hydroxbytyrateon 2024 BETA-HYDROXYBUT 2.2 mmol/L High 0.0-0.3 [facility] Comment on above: Performed By: #### L 501.6901 ####[facility] [address] [place], [address] CBC W/Diff, Automatedon 01-27 Absolute Lymph 0.88 X10 3/uL Normal 0.83-4.51 [facility] Comment on above: Performed By: #### L 700.6800, L100.0100, L500.4050, L501.5200, L501.2450 ####[facility] [address] [place], [address] Absolute Neut 17.1 X10 3/uL High 2.0-7.7 [facility] Comment on above: Performed By: #### L 700.6800, L100.0100, L500.4050, L501.5200, L501.2450 ####[facility] [address] [place], [address] Basophils/100 WBC (Bld) 0.5 % Normal 0-1 [facility] Comment on above: Performed By: #### L 700.6800, L100.0100, L500.4050, L501.5200, L501.2450 ####[facility] [address] [place], [address] Eosinophils/100 WBC (Bld) 0.0 % Normal 0-5 [facility] Comment on above: Performed By: #### L 700.6800, L100.0100, L500.4050, L501.5200, L501.2450 ####[facility] [address] [place], [address] Erythrocyte distribution width (RBC) [Ratio] 13.3 % Normal 11.6-14.6 [facility] Comment on above: Performed By: #### L 700.6800, L100.0100, L500.4050, L501.5200, L501.2450 ####[facility] [address] [place], [address] Hematocrit (Bld) [Volume fraction] 41.2 % Normal 37-47 [facility] Comment on above: Performed By: #### L 700.6800, L100.0100, L500.4050, L501.5200, L501.2450 ####[facility] [address] [place], [address] Hemoglobin (Bld) [Mass/Vol] 13.7 g/dL Normal 12.0-15.0 [facility] Comment on above: Performed By: #### L 700.6800, L100.0100, L500.4050, L501.5200, L501.2450 ####[facility] [address] [place], [address] IG% 1.600 High 0.0-0.9 [facility] Comment on above: Result Comment: IG% - Immature Granulocytes (promyelocytes, myelocytes andmetamyelocytes) > 1% indicates that a LEFT SHIFT is Present. Performed By: #### L 700.6800, L100.0100, L500.4050, L501.5200, L501.2450 ####[facility] [address] [place], [address] Lymphocytes/100 WBC (Bld) 4.7 % Low 19-41 [facility] Comment on above: Performed By: #### L 700.6800, L100.0100, L500.4050, L501.5200, L501.2450 ####[facility] [address] [place], [address] MCH (RBC) [Entitic mass] 29.3 pg Normal 27.0-32.0 [facility] Comment on above: Performed By: #### L 700.6800, L100.0100, L500.4050, L501.5200, L501.2450 ####[facility] [address] [place], [address] MCHC (RBC) [Mass/Vol] 33.3 g/dL Normal 32-36 [facility] Comment on above: Performed By: #### L 700.6800, L100.0100, L500.4050, L501.5200, L501.2450 ####[facility] [address] [place], [address] MCV (RBC) [Entitic vol] 88.0 fL Normal 81-99 [facility] Comment on above: Performed By: #### L 700.6800, L100.0100, L500.4050, L501.5200, L501.2450 ####[facility] [address] [place], [address] Monocytes/100 WBC (Bld) 2.3 % Normal 0-10 [facility] Comment on above: Performed By: #### L 700.6800, L100.0100, L500.4050, L501.5200, L501.2450 ####[facility] [address] [place], [address] Neutrophils/100 WBC (Bld) 90.9 % High 47-70 [facility] Comment on above: Performed By: #### L 700.6800, L100.0100, L500.4050, L501.5200, L501.2450 ####[facility] [address] [place], [address] Nucleated RBC (Bld) [#/Vol] 0 10*3/uL Normal 0-5 [facility] Comment on above: Performed By: #### L 700.6800, L100.0100, L500.4050, L501.5200, L501.2450 ####[facility] [address] [place], [address] Platelet mean volume (Bld) [Entitic vol] 11.8 fL Normal 6.2-12.0 [facility] Comment on above: Performed By: #### L 700.6800, L100.0100, L500.4050, L501.5200, L501.2450 ####[facility] [address] [place], [address] Platelets (Bld) [#/Vol] 226 10*3/uL Normal 150-450 [facility] Comment on above: Performed By: #### L 700.6800, L100.0100, L500.4050, L501.5200, L501.2450 ####[facility] [address] [place], [address] RBC (Bld) [#/Vol] 4.68 10*6/uL Normal 4.2-5.4 [facility] Comment on above: Performed By: #### L 700.6800, L100.0100, L500.4050, L501.5200, L501.2450 ####[facility] [address] [place], [address] RDW SD 42.8 fl Normal 35.1-43.9 [facility] Comment on above: Performed By: #### L 700.6800, L100.0100, L500.4050, L501.5200, L501.2450 ####[facility] [address] [place], [address] WBC (Bld) [#/Vol] 18.8 10*3/uL High 4.4-11.0 [facility] Comment on above: Performed By: #### L 700.6800, L100.0100, L500.4050, L501.5200, L501.2450 ####[facility] [address] [place], [address] Comprehensive Metabolic Prof rion 02-18-2025 Albumin [Mass/Vol] 4.3 g/dL Normal 3.5-5.0 [facility] Comment on above: Performed By: #### L 700.6800, L100.0100, L500.4050, L501.5200, L501.2450 ####[facility] [address] [place], [address] Albumin/Globulin [Mass ratio] 1.7 {ratio} Normal 0.9-2.4 [facility] Comment on above: Performed By: #### L 700.6800, L100.0100, L500.4050, L501.5200, L501.2450 ####[facility] [address] [place], [address] ALK PHOS 85 U/L Normal 35-104 [facility] Comment on above: Performed By: #### L 700.6800, L100.0100, L500.4050, L501.5200, L501.2450 ####[facility] [address] [place], [address] ALT [Catalytic activity/Vol] 11 U/L Normal <=34 [facility] Comment on above: Performed By: #### L 700.6800, L100.0100, L500.4050, L501.5200, L501.2450 ####[facility] [address] [place], [address] AST [Catalytic activity/Vol] 17 U/L Normal <=31 [facility] Comment on above: Performed By: #### L 700.6800, L100.0100, L500.4050, L501.5200, L501.2450 ####[facility] [address] [place], [address] Bilirubin [Mass/Vol] 0.79 mg/dL Normal 0.00-1.30 [facility] Comment on above: Performed By: #### L 700.6800, L100.0100, L500.4050, L501.5200, L501.2450 ####[facility] [address] [place], [address] BUN/CRE 15.1 RATIO Normal 10-20 [facility] Comment on above: Performed By: #### L 700.6800, L100.0100, L500.4050, L501.5200, L501.2450 ####[facility] [address] [place], [address] Calcium [Mass/Vol] 9.6 mg/dL Normal 7.6-11.0 [facility] Comment on above: Performed By: #### L 700.6800, L100.0100, L500.4050, L501.5200, L501.2450 ####[facility] [address] [place], [address] Chloride [Moles/Vol] 101 mmol/L Normal 98-108 [facility] Comment on above: Performed By: #### L 700.6800, L100.0100, L500.4050, L501.5200, L501.2450 ####[facility] [address] [place], [address] CO2 [Moles/Vol] 15.4 mmol/L Low 21.0-32.0 [facility] Comment on above: Performed By: #### L 700.6800, L100.0100, L500.4050, L501.5200, L501.2450 ####[facility] [address] [place], [address] Creatinine [Mass/Vol] 0.73 mg/dL Normal 0.70-1.20 [facility] Comment on above: Performed By: #### L 700.6800, L100.0100, L500.4050, L501.5200, L501.2450 ####[facility] [address] [place], [address] GAP 20 High 5-15 [facility] Comment on above: Performed By: #### L 700.6800, L100.0100, L500.4050, L501.5200, L501.2450 ####[facility] [address] [place], [address] GFR/1.73 sq M.predicted among non-blacks MDRD (S/P/Bld) [Vol rate/Area] 114 mL/min/{1.73_m2} Normal >60 [facility] Comment on above: Result Comment: mL/m in/1.73m2 CKD-EPI Creatinine Equation (2020) Performed By: #### L 700.6800, L100.0100, L500.4050, L501.5200, L501.2450 ####[facility] [address] [place], [address] Globulin (S) [Mass/Vol] 2.6 g/dL Normal 2.2-4.2 [facility] Comment on above: Performed By: #### L 700.6800, L100.0100, L500.4050, L501.5200, L501.2450 ####[facility] [address] [place], [address] Glucose [Mass/Vol] 324 mg/dL High 70-99 [facility] Comment on above: Performed By: #### L 700.6800, L100.0100, L500.4050, L501.5200, L501.2450 ####[facility] [address] [place], [address] Potassium [Moles/Vol] 4.2 mmol/L Normal 3.3-5.1 [facility] Comment on above: Performed By: #### L 700.6800, L100.0100, L500.4050, L501.5200, L501.2450 ####[facility] [address] [place], [address] Sodium [Moles/Vol] 136 mmol/L Normal 133-145 [facility] Comment on above: Performed By: #### L 700.6800, L100.0100, L500.4050, L501.5200, L501.2450 ####[facility] [address] [place], [address] T PROT 6.9 g/dL Normal 5.9-8.4 [facility] Comment on above: Performed By: #### L 700.6800, L100.0100, L500.4050, L501.5200, L501.2450 ####[facility] [address] [place], [address] Urea nitrogen [Mass/Vol] 11 mg/dL Normal 4-19 [facility] Comment on above: Performed By: #### L 700.6800, L100.0100, L500.4050, L501.5200, L501.2450 ####[facility] [address] [place], [address] Emergency Department Summary on 02-18-2025 Emergency Department Summary Normal [facility] H AND P Exam - Hospitaliston 02-18-2025 H&P Exam - Hospitalist Normal [facility] Lipaseon 02-18-2025 Lipase [Catalytic activity/Vol] 9 U/L Low 13-75 [facility] Comment on above: Result Comment: Sulma schmitz note:LIPASE revised reference range effective 22.New Lipase methodology. Expected to produce lower valuesthan the previous assay method.NEW Reference Range: 13 - 75 U/L Performed By: #### L 700.6800, L100.0100, L500.4050, L501.5200, L501.2450 ####[facility] [address] [place], [address] Magnesiumon 02-18-2025 Magnesium [Mass/Vol] 1.5 mg/dL Normal 1.5-2.2 [facility] Comment on above: Performed By: #### L 700.6800, L100.0100, L500.4050, L501.5200, L501.2450 ####[facility] [address] [place], [place], [id number] ,Serum,hCG Quali.on 02-18-2025 HCG, SERUM QUAL Negative Normal [facility] Comment on above: Performed By: #### L 700.6800, L100.0100, L500.4050, L501.5200, L501.2450 ####[facility] [address] [place], [address] Urinalysis, Completeon 02-18 RBC 0-5 SEEN Normal 0-5 [facility] Comment on above: Order Comment: CLEAN CATCH Performed By: #### L 400.0001 ####[facility] [address] [place], [address] WBC 0-5 SEEN Normal 0-5 [facility] Comment on above: Order Comment: CLEAN CATCH Performed By: #### L 400.0001 ####[facility] [address] [place], [address] EPI,SQUAMOUS 5-10 SEEN Normal 5-10 [facility] Comment on above: Order Comment: CLEAN CATCH Performed By: #### L 400.0001 ####[facility] [address] [place], [address] BACTERIA 0 SEEN Normal None Seen [facility] Comment on above: Order Comment: CLEAN CATCH Performed By: #### L 400.0001 ####[facility] [address] [place], [address] Mucus Ql (Urine sed) 0 SEEN Normal [facility] Comment on above: Order Comment: CLEAN CATCH Performed By: #### L 400.0001 ####[facility] [address] [place], [address] Venous Blood Gason 5 Blood Gas Type ISABELLE Normal [facility] Comment on above: Performed By: #### L 9000.0810 ####[facility] [address] [place], [address] CO2 [Moles/Vol] 22 mmol/L Low 23-33 [facility] Comment on above: Performed By: #### L 9000.0810 ####[facility] [address] [place], [address] HCO3 (Bld) [Moles/Vol] 22 mmol/L Normal 22-26 [facility] Comment on above: Performed By: #### L 9000.0810 ####[facility] [address] [place], [address] O2 Delivery Dev Not entered [facility] Comment on above: Performed By: #### L 9000.0810 ####[facility] [address] [place], [address] SITE Not entered [facility] Comment on above: Performed By: #### L 9000.0810 ####[facility] [address] [place], [address] VBG BE -1 mmol/L Normal -1.0-3.5 [facility] Comment on above: Performed By: #### L 9000.0810 ####[facility] [address] [place], [address] VBG pCO2 26.5 mmHg Low 41-51 [facility] Comment on above: Performed By: #### L 9000.0810 ####[facility] [address] [place], [address] VBG pH 7.52 High 7.32-7.42 [facility] Comment on above: Performed By: #### L 9000.0810 ####[facility] [address] [place], [address] VBG PO2 29 mmHg Normal 25-40 [facility] Comment on above: Performed By: #### L 9000.0810 ####[facility] [address] [place], [address] VBG SO2 64 Normal 50-70 [facility] Comment on above: Performed By: #### L 9000.0810 ####[facility] [address] [place], [address] Hepatitis A AB, Totalon 06- HEPATITIS A,TOT Positive Abnormal Negative [facility] Comment on above: Order [...] HAVtotal antibody results to IgM (e.g., panel #[id number] HAVAntibody w/ Rfx).Performed at: [address] [id number] Director: Esteban Jin PhD, Phone: [phone] Performed By: #### L 3100.0460, L300.3900, L100.0100, L3890.6202, L501.9520, L500.2500, L3890.6301, L500.3400, L3410.9992, L3100.0300, L3890.6102, L501.9985 ####[facility] [address] [facility] [place], [address] Hepatitis B Core Ab Totalon 02-05-2025 HEP B CORE,TOT Negative Normal Negative [facility] Comment on above: Order Comment: KATHY CALDERON ORDERED BMP,LIVER,CBCD,PT/INR,TSH,HEBSAG,HECAB,HEAT,HEP B CORE, AND ELF.ANTONIA ORDERED CMP AND A1C Performed By: #### L 3100.0460, L300.3900, L100.0100, L3890.6202, L501.9520, L500.2500, L3890.6301, L500.3400, L3410.9992, L3100.0300, L3890.6102, L501.9985 ####[facility] [address] [place], [place], [address] L3410.9992on 02-05-[address] [facility] Misc. COM[facility] Normal . [facility] Comment on above: Order Comment: KATHY CALDERON ORDERED BMP,LIVER,CBCD,PT/INR,TSH,HEBSAG,HECAB,HEAT,HEP B CORE, AND ELF.ANTONIA ORDERED CMP AND [id number] Result Comment: Test Ordered: 405000 Enhanced Liver Fibrosis (ELF)ELF(TM) Score 8.11 BN [...] STELLAR trials. J Hepatol. 2020 Feb;73(1):26-39.Performed at: [facility] [address] [id number] Director: Brian Rouse MD, Phone: [phone] at: [facility] [address] [id number] Director: Esteban Jin PhD, Phone: [phone] Performed By: #### L 3100.0460, L300.3900, L100.0100, L3890.6202, L501.9520, L500.2500, L3890.6301, L500.3400, L3410.9992, L3100.0300, L3890.6102, L501.9985 ####[facility] [address] [place], [place], [id number] Basic Metabolic Profile (BMP )on 02-03-2025 BUN/CRE 12.4 RATIO Normal 10-20 [facility] Comment on above: Order Comment: KATHY CALDERON ORDERED BMP,LIVER,CBCD,PT/INR,TSH,HEBSAG,HECAB,HEAT,HEP B CORE, AND ELF.ANTONIA ORDERED CMP AND A1C Performed By: #### L 3100.0460, L300.3900, L100.0100, L3890.6202, L501.9520, L500.2500, L3890.6301, L500.3400, L3410.9992, L3100.0300, L3890.6102, L501.9985 ####[facility] [address] [place], [place], [phone](461) Calcium [Mass/Vol] 9.7 mg/dL Normal 7.6-11.0 [facility] Comment on above: Order Comment: KATHY CALDERON ORDERED BMP,LIVER,CBCD,PT/INR,TSH,HEBSAG,HECAB,HEAT,HEP B CORE, AND ELF.ANTONIA ORDERED CMP AND A1C Performed By: #### L 3100.0460, L300.3900, L100.0100, L3890.6202, L501.9520, L500.2500, L3890.6301, L500.3400, L3410.9992, L3100.0300, L3890.6102, L501.9985 ####[facility] [address] [place], [place], [phone] Chloride [Moles/Vol] 96 mmol/L Low 98-108 [facility] Comment on above: Order Comment: KATHY CALDERON ORDERED BMP,LIVER,CBCD,PT/INR,TSH,HEBSAG,HECAB,HEAT,HEP B CORE, AND ELF.ANTONIA ORDERED CMP AND A1C Performed By: #### L 3100.0460, L300.3900, L100.0100, L3890.6202, L501.9520, L500.2500, L3890.6301, L500.3400, L3410.9992, L3100.0300, L3890.6102, L501.9985 ####[facility] [address] [place], [place], [phone] CO2 [Moles/Vol] 22.5 mmol/L Normal 21.0-32.0 [facility] Comment on above: Order Comment: KATHY CALDERON ORDERED BMP,LIVER,CBCD,PT/INR,TSH,HEBSAG,HECAB,HEAT,HEP B CORE, AND ELF.ANTONIA ORDERED CMP AND A1C Performed By: #### L 3100.0460, L300.3900, L100.0100, L3890.6202, L501.9520, L500.2500, L3890.6301, L500.3400, L3410.9992, L3100.0300, L3890.6102, L501.9985 ####[facility] [address] [place], [place], [phone] Creatinine [Mass/Vol] 0.78 mg/dL Normal 0.70-1.20 [facility] Comment on above: Order Comment: KATHY CALDERON ORDERED BMP,LIVER,CBCD,PT/INR,TSH,HEBSAG,HECAB,HEAT,HEP B CORE, AND ELF.ANTONIA ORDERED CMP AND A1C Performed By: #### L 3100.0460, L300.3900, L100.0100, L3890.6202, L501.9520, L500.2500, L3890.6301, L500.3400, L3410.9992, L3100.0300, L3890.6102, L501.9985 ####[facility] [address] [place], [place], [phone] GAP 15 Normal 5-15 [facility] Comment on above: Order Comment: KATHY CALDERON ORDERED BMP,LIVER,CBCD,PT/INR,TSH,HEBSAG,HECAB,HEAT,HEP B CORE, AND ELF.ANTONIA ORDERED CMP AND A1C Performed By: #### L 3100.0460, L300.3900, L100.0100, L3890.6202, L501.9520, L500.2500, L3890.6301, L500.3400, L3410.9992, L3100.0300, L3890.6102, L501.9985 ####[facility] [address] [place], [place], [phone] GFR/1.73 sq M.predicted among non-blacks MDRD (S/P/Bld) [Vol rate/Area] 106 mL/min/{1.73_m2} Normal >60 [facility] Comment on above: Order Comment: KATHY CALDERON ORDERED BMP,LIVER,CBCD,PT/INR,TSH,HEBSAG,HECAB,HEAT,HEP B CORE, AND ELF.ANTONIA ORDERED CMP AND A1C Result Comment: mL/m in/1.73m2 CKD-EPI Creatinine Equation (2020) Performed By: #### L 3100.0460, L300.3900, L100.0100, L3890.6202, L501.9520, L500.2500, L3890.6301, L500.3400, L3410.9992, L3100.0300, L3890.6102, L501.9985 ####[facility] [address] [place], [address] Glucose [Mass/Vol] 459 mg/dL Invalid Interpretation Code 70-99 [facility] Comment on above: Order Comment: KATHY CALDERON ORDERED BMP,LIVER,CBCD,PT/INR,TSH,HEBSAG,HECAB,HEAT,HEP B CORE, AND ELF.ANTONIA ORDERED CMP AND A1C Result Comment: Crit ical Result(s) Called at: by:??Results read back bysame.LEFT VOICEMAIL @ 1811 Performed By: #### L 3100.0460, L300.3900, L100.0100, L3890.6202, L501.9520, L500.2500, L3890.6301, L500.3400, L3410.9992, L3100.0300, L3890.6102, L501.9985 ####[facility] [address] [place], [place], [phone] Potassium [Moles/Vol] 4.7 mmol/L Normal 3.3-5.1 [facility] Comment on above: Order Comment: KATHY CALDERON ORDERED BMP,LIVER,CBCD,PT/INR,TSH,HEBSAG,HECAB,HEAT,HEP B CORE, AND ELF.AFTER SCHOOL TEACHER.SAMANTHAHOWalter ORDERED CMP AND A1C Performed By: #### L 3100.0460, L300.3900, L100.0100, L3890.6202, L501.9520, L500.2500, L3890.6301, L500.3400, L3410.9992, L3100.0300, L3890.6102, L501.9985 ####[facility] [address], [address] Sodium [Moles/Vol] 133 mmol/L Normal 133-145 [facility] Comment on above: Order Comment: KATHY CALDERON ORDERED BMP,LIVER,CBCD,PT/INR,TSH,HEBSAG,HECAB,HEAT,HEP B CORE, AND ELF.CHRIS.SAMANTHAHOWalter ORDERED CMP AND A1C Performed By: #### L 3100.0460, L300.3900, L100.0100, L3890.6202, L501.9520, L500.2500, L3890.6301, L500.3400, L3410.9992, L3100.0300, L3890.6102, L501.9985 ####[facility] [address] [place], [address] Urea nitrogen [Mass/Vol] 10 mg/dL Normal 4-19 [facility] Comment on above: Order Comment: KATHY CALDERON ORDERED BMP,LIVER,CBCD,PT/INR,TSH,HEBSAG,HECAB,HEAT,HEP B CORE, AND ELF.HILARYHOWalter ORDERED CMP AND A1C Performed By: #### L 3100.0460, L300.3900, L100.0100, L3890.6202, L501.9520, L500.2500, L3890.6301, L500.3400, L3410.9992, L3100.0300, L3890.6102, L501.9985 ####[facility] 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 [place], [place], [phone] Basophils/100 WBC (Bld) 0.5 % Normal 0-1 [facility] Comment on above: Order Comment: KATHY CALDERON ORDERED BMP,LIVER,CBCD,PT/INR,TSH,HEBSAG,HECAB,HEAT,HEP B CORE, AND ELF.AFTER SCHOOL TEACHERKELVINHOWalter ORDERED CMP AND A1C Performed By: #### L 3100.0460, L300.3900, L100.0100, L3890.6202, L501.9520, L500.2500, L3890.6301, L500.3400, L3410.9992, L3100.0300, L3890.6102, L501.9985 ####[facility] [address] [facility] [place], [address] Eosinophils/100 WBC (Bld) 0.5 % Normal 0-5 [facility] Comment on above: Order Comment: KATHY CALDERON ORDERED BMP,LIVER,CBCD,PT/INR,TSH,HEBSAG,HECAB,HEAT,HEP B CORE, AND ELF.ANTONIA ORDERED CMP AND A1C Performed By: #### L 3100.0460, L300.3900, L100.0100, L3890.6202, L501.9520, L500.2500, L3890.6301, L500.3400, L3410.9992, L3100.0300, L3890.6102, L501.9985 ####[facility] [address] [facility] [place], [place], [phone] Erythrocyte distribution width (RBC) [Ratio] 13.4 % Normal 11.6-14.6 [facility] Comment on above: Order Comment: KATHY CALDERON ORDERED BMP,LIVER,CBCD,PT/INR,TSH,HEBSAG,HECAB,HEAT,HEP B CORE, AND ELF.ANTONIA ORDERED CMP AND A1C Performed By: #### L 3100.0460, L300.3900, L100.0100, L3890.6202, L501.9520, L500.2500, L3890.6301, L500.3400, L3410.9992, L3100.0300, L3890.6102, L501.9985 ####[facility] [address] [facility] [place], [place], [phone] Hematocrit (Bld) [Volume fraction] 40.5 % Normal 37-47 [facility] Comment on above: Order Comment: KATHY CALDERON ORDERED BMP,LIVER,CBCD,PT/INR,TSH,HEBSAG,HECAB,HEAT,HEP B CORE, AND ELF.ANTONIA ORDERED CMP AND A1C Performed By: #### L 3100.0460, L300.3900, L100.0100, L3890.6202, L501.9520, L500.2500, L3890.6301, L500.3400, L3410.9992, L3100.0300, L3890.6102, L501.9985 ####[facility] [address] [place], [place], [phone] Hemoglobin (Bld) [Mass/Vol] 13.5 g/dL Normal 12.0-15.0 [facility] Comment on above: Order Comment: KATHY CALDERON ORDERED BMP,LIVER,CBCD,PT/INR,TSH,HEBSAG,HECAB,HEAT,HEP B CORE, AND ELF.ANTONIA ORDERED CMP AND A1C Performed By: #### L 3100.0460, L300.3900, L100.0100, L3890.6202, L501.9520, L500.2500, L3890.6301, L500.3400, L3410.9992, L3100.0300, L3890.6102, L501.9985 ####[facility] [address] [place], [address] IG% 1.500 High 0.0-0.9 [facility] Comment on above: Order Comment: KATHY CALDERON ORDERED BMP,LIVER,CBCD,PT/INR,TSH,HEBSAG,HECAB,HEAT,HEP B CORE, AND ELF.ANTONIA ORDERED CMP AND A1C Result Comment: IG% - Immature Granulocytes (promyelocytes, myelocytes andmetamyelocytes) > 1% indicates that a LEFT SHIFT is Present. Performed By: #### L 3100.0460, L300.3900, L100.0100, L3890.6202, L501.9520, L500.2500, L3890.6301, L500.3400, L3410.9992, L3100.0300, L3890.6102, L501.9985 ####[facility] [address] [place], [address] Lymphocytes/100 WBC (Bld) 16.3 % Low 19-41 [facility] Comment on above: Order Comment: KATHY CALDERON ORDERED BMP,LIVER,CBCD,PT/INR,TSH,HEBSAG,HECAB,HEAT,HEP B CORE, AND ELF.ANTONIA ORDERED CMP AND A1C Performed By: #### L 3100.0460, L300.3900, L100.0100, L3890.6202, L501.9520, L500.2500, L3890.6301, L500.3400, L3410.9992, L3100.0300, L3890.6102, L501.9985 ####[facility] [address] [place], [address] MCH (RBC) [Entitic mass] 29.7 pg Normal 27.0-32.0 [facility] Comment on above: Order Comment: KATHY CALDERON ORDERED BMP,LIVER,CBCD,PT/INR,TSH,HEBSAG,HECAB,HEAT,HEP B CORE, AND ELF.ANTONIA ORDERED CMP AND A1C Performed By: #### L 3100.0460, L300.3900, L100.0100, L3890.6202, L501.9520, L500.2500, L3890.6301, L500.3400, L3410.9992, L3100.0300, L3890.6102, L501.9985 ####[facility] [address] [place], [address] MCHC (RBC) [Mass/Vol] 33.3 g/dL Normal 32-36 [facility] Comment on above: Order Comment: KATHY CALDERON ORDERED BMP,LIVER,CBCD,PT/INR,TSH,HEBSAG,HECAB,HEAT,HEP B CORE, AND ELF.AFTER SCHOOL TEACHER.SAMANTHAHOWalter ORDERED CMP AND A1C Performed By: #### L 3100.0460, L300.3900, L100.0100, L3890.6202, L501.9520, L500.2500, L3890.6301, L500.3400, L3410.9992, L3100.0300, L3890.6102, L501.9985 ####[facility] [address] [place], [address] MCV (RBC) [Entitic vol] 89.0 fL Normal 81-99 [facility] Comment on above: Order Comment: KATHY CALDERON ORDERED BMP,LIVER,CBCD,PT/INR,TSH,HEBSAG,HECAB,HEAT,HEP B CORE, AND ELF.AFTER SCHOOL TEACHER.SAMANTHAHOWalter ORDERED CMP AND A1C Performed By: #### L 3100.0460, L300.3900, L100.0100, L3890.6202, L501.9520, L500.2500, L3890.6301, L500.3400, L3410.9992, L3100.0300, L3890.6102, L501.9985 ####[facility] [address] [place], [address] Monocytes/100 WBC (Bld) 4.8 % Normal 0-10 [facility] Comment on above: Order Comment: KATHY CALDERON ORDERED BMP,LIVER,CBCD,PT/INR,TSH,HEBSAG,HECAB,HEAT,HEP B CORE, AND ELF.AFTER SCHOOL TEACHER.SAMANTHAHOF ORDERED CMP AND A1C Performed By: #### L 3100.0460, L300.3900, L100.0100, L3890.6202, L501.9520, L500.2500, L3890.6301, L500.3400, L3410.9992, L3100.0300, L3890.6102, L501.9985 ####[facility] [address] [place], [address] Neutrophils/100 WBC (Bld) 76.4 % High 47-70 [facility] Comment on above: Order Comment: KATHY CALDERON ORDERED BMP,LIVER,CBCD,PT/INR,TSH,HEBSAG,HECAB,HEAT,HEP B CORE, AND ELF.ANTONIA ORDERED CMP AND A1C Performed By: #### L 3100.0460, L300.3900, L100.0100, L3890.6202, L501.9520, L500.2500, L3890.6301, L500.3400, L3410.9992, L3100.0300, L3890.6102, L501.9985 ####[facility] [address] [place], [address] Nucleated RBC (Bld) [#/Vol] 0 10*3/uL Normal 0-5 [facility] Comment on above: Order Comment: KATHY CALDERON ORDERED BMP,LIVER,CBCD,PT/INR,TSH,HEBSAG,HECAB,HEAT,HEP B CORE, AND ELF.ANTONIA ORDERED CMP AND A1C Performed By: #### L 3100.0460, L300.3900, L100.0100, L3890.6202, L501.9520, L500.2500, L3890.6301, L500.3400, L3410.9992, L3100.0300, L3890.6102, L501.9985 ####[facility] [address] [place], [address] Platelet mean volume (Bld) [Entitic vol] 11.5 fL Normal 6.2-12.0 [facility] Comment on above: Order Comment: KATHY CALDERON ORDERED BMP,LIVER,CBCD,PT/INR,TSH,HEBSAG,HECAB,HEAT,HEP B CORE, AND ELF.ANTONIA ORDERED CMP AND A1C Performed By: #### L 3100.0460, L300.3900, L100.0100, L3890.6202, L501.9520, L500.2500, L3890.6301, L500.3400, L3410.9992, L3100.0300, L3890.6102, L501.9985 ####[facility] [address] [place], [address] Platelets (Bld) [#/Vol] 215 10*3/uL Normal 150-450 [facility] Comment on above: Order Comment: KATHY CALDERON ORDERED BMP,LIVER,CBCD,PT/INR,TSH,HEBSAG,HECAB,HEAT,HEP B CORE, AND ELF.ANTONIA ORDERED CMP AND A1C Performed By: #### L 3100.0460, L300.3900, L100.0100, L3890.6202, L501.9520, L500.2500, L3890.6301, L500.3400, L3410.9992, L3100.0300, L3890.6102, L501.9985 ####[facility] [address] [place], [place], [phone] RBC (Bld) [#/Vol] 4.55 10*6/uL Normal 4.2-5.4 [facility] Comment on above: Order Comment: KATHY CALDERON ORDERED BMP,LIVER,CBCD,PT/INR,TSH,HEBSAG,HECAB,HEAT,HEP B CORE, AND ELF.ANTONIA ORDERED CMP AND A1C Performed By: #### L 3100.0460, L300.3900, L100.0100, L3890.6202, L501.9520, L500.2500, L3890.6301, L500.3400, L3410.9992, L3100.0300, L3890.6102, L501.9985 ####[facility] [address] [place], [address] RDW SD 43.5 fl Normal 35.1-43.9 [facility] Comment on above: Order Comment: KATHY CALDERON ORDERED BMP,LIVER,CBCD,PT/INR,TSH,HEBSAG,HECAB,HEAT,HEP B CORE, AND ELF.ANTONIA ORDERED CMP AND A1C Performed By: #### L 3100.0460, L300.3900, L100.0100, L3890.6202, L501.9520, L500.2500, L3890.6301, L500.3400, L3410.9992, L3100.0300, L3890.6102, L501.9985 ####[facility] [address] [place], [address] WBC (Bld) [#/Vol] 10.4 10*3/uL Normal 4.4-11.0 [facility] Comment on above: Order Comment: KATHY CALDERON ORDERED BMP,LIVER,CBCD,PT/INR,TSH,HEBSAG,HECAB,HEAT,HEP B CORE, AND ELF.ANTONIA ORDERED CMP AND A1C Performed By: #### L 3100.0460, L300.3900, L100.0100, L3890.6202, L501.9520, L500.2500, L3890.6301, L500.3400, L3410.9992, L3100.0300, L3890.6102, L501.9985 ####[facility] [address] [place], [address] Hemoglobin A1con 02-03-2025 HbA1c (Bld) [Mass fraction] 10.9 % High <=5.6 [facility] Comment on above: Order Comment: KATHY CALDERON ORDERED BMP,LIVER,CBCD,PT/INR,TSH,HEBSAG,HECAB,HEAT,HEP B CORE, AND ELF.ANTONIA ORDERED CMP AND A1C Result Comment: Norm al < 5.7 % Prediabetic 5.7 - 6.4 % Diabetic >or= 6.5 % Please note range changes. Performed By: #### L 3100.0460, L300.3900, L100.0100, L3890.6202, L501.9520, L500.2500, L3890.6301, L500.3400, L3410.9992, L3100.0300, L3890.6102, L501.9985 ####[facility] [address] [place], [place], [phone] Hepatitis B Surface Antibody on 02-03-2025 HEP B Surf Ab Non-Reactive Normal [facility] Comment on above: [...] L500.2500, L3890.6301, L500.3400, L3410.9992, L3100.0300, L3890.6102, L501.9985 ####[facility] [address] [facility] [place], [address] Hepatitis C Antibodyon 02-03 Hepatitis C Ab Non-Reactive Normal Nonreactive [facility] Comment on above: Order Comment: KATHY CALDERON ORDERED BMP,LIVER,CBCD,PT/INR,TSH,HEBSAG,HECAB,HEAT,HEP B CORE, AND ELF.ANTONIA ORDERED CMP AND A1C Result Comment: Reac tive: Presumptive evidence of antibodies to HCV. [facility] recommendations for supplemental testing.Non-Reactive: Antibodies to HCV were not detected; does notexclude the possibility of exposure to HCVReactive Results are presumptive evidence of antibodies toHCV. Follow CDC recommendations for supplemental testing.Order confirmation testing: HCV Quant by PCR testing -[facility] #[id number] Non Reactive: < 0.8 Equivocal: >/= 0.8 to < 1.0 Reactive: >/= 1.0The [facility] requires that a reactive/equivocal HCV antibodyresult be sent out for confirmation. HCV Quant by PCRtesting. Performed By: #### L 3100.0460, L300.3900, L100.0100, L3890.6202, L501.9520, L500.2500, L3890.6301, L500.3400, L3410.9992, L3100.0300, L3890.6102, L501.9985 ####[facility] [address] [place], [address] L3890.6102on 02-03-2025 HEP B Surf Ag Non-Reactive Normal Nonreactive [facility] Comment [...] L500.2500, L3890.6301, L500.3400, L3410.9992, L3100.0300, L3890.6102, L501.9985 ####[facility] [address] [place], [address] Liver Profileon 02-03-2025 Albumin [Mass/Vol] 4.2 g/dL Normal 3.5-5.0 [facility] Comment on above: Order Comment: KATHY CALDERON ORDERED BMP,LIVER,CBCD,PT/INR,TSH,HEBSAG,HECAB,HEAT,HEP B CORE, AND ELF.ANTONIA ORDERED CMP AND A1C Performed By: #### L 3100.0460, L300.3900, L100.0100, L3890.6202, L501.9520, L500.2500, L3890.6301, L500.3400, L3410.9992, L3100.0300, L3890.6102, L501.9985 ####[facility] [address] [place], [address] ALK PHOS 95 U/L Normal 35-104 [facility] Comment on above: Order Comment: KATHY CALDERON ORDERED BMP,LIVER,CBCD,PT/INR,TSH,HEBSAG,HECAB,HEAT,HEP B CORE, AND ELF.ANTONIA ORDERED CMP AND A1C Performed By: #### L 3100.0460, L300.3900, L100.0100, L3890.6202, L501.9520, L500.2500, L3890.6301, L500.3400, L3410.9992, L3100.0300, L3890.6102, L501.9985 ####[facility] [address] [place], [address] ALT [Catalytic activity/Vol] 29 U/L Normal <=34 [facility] Comment on above: Order Comment: KATHY CALDERON ORDERED BMP,LIVER,CBCD,PT/INR,TSH,HEBSAG,HECAB,HEAT,HEP B CORE, AND ELF.ANTONIA ORDERED CMP AND A1C Performed By: #### L 3100.0460, L300.3900, L100.0100, L3890.6202, L501.9520, L500.2500, L3890.6301, L500.3400, L3410.9992, L3100.0300, L3890.6102, L501.9985 ####[facility] [address] [place], [place], [id number] AST [Catalytic activity/Vol] 18 U/L Normal <=31 [facility] Comment on above: Order Comment: KATHY CALDERON ORDERED BMP,LIVER,CBCD,PT/INR,TSH,HEBSAG,HECAB,HEAT,HEP B CORE, AND ELF.ANTONIA ORDERED CMP AND A1C Performed By: #### L 3100.0460, L300.3900, L100.0100, L3890.6202, L501.9520, L500.2500, L3890.6301, L500.3400, L3410.9992, L3100.0300, L3890.6102, L501.9985 ####[facility] [address] [place], [place], [phone] Bilirubin [Mass/Vol] 0.30 mg/dL Normal 0.00-1.30 [facility] Comment on above: Order Comment: KATHY CALDERON ORDERED BMP,LIVER,CBCD,PT/INR,TSH,HEBSAG,HECAB,HEAT,HEP B CORE, AND ELF.ANTONIA ORDERED CMP AND A1C Performed By: #### L 3100.0460, L300.3900, L100.0100, L3890.6202, L501.9520, L500.2500, L3890.6301, L500.3400, L3410.9992, L3100.0300, L3890.6102, L501.9985 ####[facility] [address] [place], [place], [phone] Bilirubin.direct [Mass/Vol] 0.13 mg/dL Normal 0.00-0.30 [facility] Comment on above: Order Comment: KATHY CALDERON ORDERED BMP,LIVER,CBCD,PT/INR,TSH,HEBSAG,HECAB,HEAT,HEP B CORE, AND ELF.ANTONIA ORDERED CMP AND A1C Performed By: #### L 3100.0460, L300.3900, L100.0100, L3890.6202, L501.9520, L500.2500, L3890.6301, L500.3400, L3410.9992, L3100.0300, L3890.6102, L501.9985 ####[facility] [address] [place], [place], [phone] Globulin (S) [Mass/Vol] 2.7 g/dL Normal 2.2-4.2 [facility] Comment on above: Order Comment: KATHY CALDERON ORDERED BMP,LIVER,CBCD,PT/INR,TSH,HEBSAG,HECAB,HEAT,HEP B CORE, AND ELF.ANTONIA ORDERED CMP AND A1C Performed By: #### L 3100.0460, L300.3900, L100.0100, L3890.6202, L501.9520, L500.2500, L3890.6301, L500.3400, L3410.9992, L3100.0300, L3890.6102, L501.9985 ####[facility] [address] [place], [place], [phone] T PROT 6.8 g/dL Normal 5.9-8.4 [facility] Comment on above: Order Comment: KATHY CALDERON ORDERED BMP,LIVER,CBCD,PT/INR,TSH,HEBSAG,HECAB,HEAT,HEP B CORE, AND ELF.ANTONIA ORDERED CMP AND A1C Performed By: #### L 3100.0460, L300.3900, L100.0100, L3890.6202, L501.9520, L500.2500, L3890.6301, L500.3400, L3410.9992, L3100.0300, L3890.6102, L501.9985 ####[facility] [address] [place], [address] Prothrombin Time w/INRon INR Coag (PPP) [Relative time] 0.9 {INR} Normal [facility] Comment on above: Order Comment: KATHY CALDERON ORDERED BMP,LIVER,CBCD,PT/INR,TSH,HEBSAG,HECAB,HEAT,HEP B CORE, AND ELF.ANTONIA ORDERED CMP AND A1C Performed By: #### L 3100.0460, L300.3900, L100.0100, L3890.6202, L501.9520, L500.2500, L3890.6301, L500.3400, L3410.9992, L3100.0300, L3890.6102, L501.9985 ####[facility] [address] [place], [place], [phone] PT Coag (PPP) [Time] 11.9 s Normal 11.7-14.9 [facility] Comment on above: Order Comment: KATHY CALDERON ORDERED BMP,LIVER,CBCD,PT/INR,TSH,HEBSAG,HECAB,HEAT,HEP B CORE, AND ELF.ANTONIA ORDERED CMP AND A1C Performed By: #### L 3100.0460, L300.3900, L100.0100, L3890.6202, L501.9520, L500.2500, L3890.6301, L500.3400, L3410.9992, L3100.0300, L3890.6102, L501.9985 ####[facility] [address] [facility]. [place], [place], [phone] Thyroid Stim Hormone (TSH)on 02-03-2025 TSH 1.140 uIU/mL Normal 0.300-4.200 [facility] Comment on above: Order Comment: KATHY CALDERON ORDERED BMP,LIVER,CBCD,PT/INR,TSH,HEBSAG,HECAB,HEAT,HEP B CORE, AND ELF.ANTONIA ORDERED CMP AND A1C Performed By: #### L 3100.0460, L300.3900, L100.0100, L3890.6202, L501.9520, L500.2500, L3890.6301, L500.3400, L3410.9992, L3100.0300, L3890.6102, L501.9985 ####[facility] [address] [place], [address] Basic Metabolic Profile (BMP )on 02-01-2025 BUN Normal 4-19 [facility] Comment on above: Result Comment: Canc elled via OM: Order cancelled - Patient discharged Performed By: #### L 500.2500, L100.0100 ####[facility] [address] [place], [address] BUN/CRE Normal 10-20 [facility] Comment on above: Result Comment: Canc elled via OM: Order cancelled - Patient discharged Performed By: #### L 500.2500, L100.0100 ####[facility] [address] [place], [address] Calcium Normal 7.6-11.0 [facility] Comment on above: Result Comment: Canc elled via OM: Order cancelled - Patient discharged Performed By: #### L 500.2500, L100.0100 ####[facility] [address] [place], [address] CL Normal 98-108 [facility] Comment on above: Result Comment: Canc elled via OM: Order cancelled - Patient discharged Performed By: #### L 500.2500, L100.0100 ####[facility] [address] [place], [address] CO2 Normal 21.0-32.0 [facility] Comment on above: Result Comment: Canc elled via OM: Order cancelled - Patient discharged Performed By: #### L 500.2500, L100.0100 ####[facility] [address] [place], [address] CREAT,SERUM Normal 0.70-1.20 [facility] Comment on above: Result Comment: Canc elled via OM: Order cancelled - Patient discharged Performed By: #### L 500.2500, L100.0100 ####[facility] [address] [place], [address] eGFR Normal >60 [facility] Comment on above: Result Comment: Canc elled via OM: Order cancelled - Patient discharged Performed By: #### L 500.2500, L100.0100 ####[facility] [address] [place], [place], [address] GAP Normal 5-15 [facility] Comment on above: Result Comment: Canc elled via OM: Order cancelled - Patient discharged Performed By: #### L 500.2500, L100.0100 ####[facility] [address] [place], [address] GLU Normal 70-99 [facility] Comment on above: Result Comment: Canc elled via OM: Order cancelled - Patient discharged Performed By: #### L 500.2500, L100.0100 ####[facility] [address] [place], [address] Potassium Normal 3.3-5.1 [facility] Comment on above: Result Comment: Canc elled via OM: Order cancelled - Patient discharged Performed By: #### L 500.2500, L100.0100 ####[facility] [address] [place], [address] Basic Metabolic Profile (BMP) Normal 133-145 [facility] Comment on above: Result Comment: Canc elled via OM: Order cancelled - Patient discharged Performed By: #### L 500.2500, L100.0100 ####[facility] [address] [place], [address] CBC W/Diff, Automatedon 06-0 -2024 Absolute Neut Normal 2.0-7.7 [facility] Comment on above: Result Comment: Canc elled via OM: Order cancelled - Patient discharged Performed By: #### L 500.2500, L100.0100 ####[facility] [address] [place], [address] HCT Normal 37-47 [facility] Comment on above: Result Comment: Canc elled via OM: Order cancelled - Patient discharged Performed By: #### L 500.2500, L100.0100 ####[facility] [address] [place], [address] HGB Normal 12.0-15.0 [facility] Comment on above: Result Comment: Canc elled via OM: Order cancelled - Patient discharged Performed By: #### L 500.2500, L100.0100 ####[facility] [address] [place], [address] MCH Normal 27.0-32.0 [facility] Comment on above: Result Comment: Canc elled via OM: Order cancelled - Patient discharged Performed By: #### L 500.2500, L100.0100 ####[facility] [address] [place], [address] MCHC Normal 32-36 [facility] Comment on above: Result Comment: Canc elled via OM: Order cancelled - Patient discharged Performed By: #### L 500.2500, L100.0100 ####[facility] [address] [place], [address] MCV Normal 81-99 [facility] Comment on above: Result Comment: Canc elled via OM: Order cancelled - Patient discharged Performed By: #### L 500.2500, L100.0100 ####[facility] [address] [place], [address] NEUT% Normal 47-70 [facility] Comment on above: Result Comment: Canc elled via OM: Order cancelled - Patient discharged Performed By: #### L 500.2500, L100.0100 ####[facility] [address] [place], [address] PLT Normal 150-450 [facility] Comment on above: Result Comment: Canc elled via OM: Order cancelled - Patient discharged Performed By: #### L 500.2500, L100.0100 ####[facility] [address] [place], [address] RBC Normal 4.2-5.4 [facility] Comment on above: Result Comment: Canc elled via OM: Order cancelled - Patient discharged Performed By: #### L 500.2500, L100.0100 ####[facility] [address] [place], [address] RDW CV Normal 11.6-14.6 [facility] Comment on above: Result Comment: Canc elled via OM: Order cancelled - Patient discharged Performed By: #### L 500.2500, L100.0100 ####[facility] [address] [place], [address] RDW SD Normal 35.1-43.9 [facility] Comment on above: Result Comment: Canc elled via OM: Order cancelled - Patient discharged Performed By: #### L 500.2500, L100.0100 ####[facility] [address] [place], [address] WBC Normal 4.4-11.0 [facility] Comment on above: Result Comment: Canc elled via OM: Order cancelled - Patient discharged Performed By: #### L 500.2500, L100.0100 ####[facility] [address] [place], [address] Basic Metabolic Profile (BMP )on 01-31-2025 BUN Normal 4-19 [facility] Comment on above: Result Comment: Canc elled via OM: Order cancelled - Patient discharged Performed By: #### L 500.2500, L100.0100 ####[facility] [address] [place], [address] BUN/CRE Normal 10-20 [facility] Comment on above: Result Comment: Canc elled via OM: Order cancelled - Patient discharged Performed By: #### L 500.2500, L100.0100 ####[facility] [address] [place], [address] Calcium Normal 7.6-11.0 [facility] Comment on above: Result Comment: Canc elled via OM: Order cancelled - Patient discharged Performed By: #### L 500.2500, L100.0100 ####[facility] [address] [place], [address] CL Normal 98-108 [facility] Comment on above: Result Comment: Canc elled via OM: Order cancelled - Patient discharged Performed By: #### L 500.2500, L100.0100 ####[facility] [address] [place], [address] CO2 Normal 21.0-32.0 [facility] Comment on above: Result Comment: Canc elled via OM: Order cancelled - Patient discharged Performed By: #### L 500.2500, L100.0100 ####[facility] [address] [place], [address] CREAT,SERUM Normal 0.70-1.20 [facility] Comment on above: Result Comment: Canc elled via OM: Order cancelled - Patient discharged Performed By: #### L 500.2500, L100.0100 ####[facility] [address] [place], [address] eGFR Normal >60 [facility] Comment on above: Result Comment: Canc elled via OM: Order cancelled - Patient discharged Performed By: #### L 500.2500, L100.0100 ####[facility] [address] [place], [address] GAP Normal 5-15 [facility] Comment on above: Result Comment: Canc elled via OM: Order cancelled - Patient discharged Performed By: #### L 500.2500, L100.0100 ####[facility] [address] [place], [address] GLU Normal 70-99 [facility] Comment on above: Result Comment: Canc elled via OM: Order cancelled - Patient discharged Performed By: #### L 500.2500, L100.0100 ####[facility] [address] [place], [address] Potassium Normal 3.3-5.1 [facility] Comment on above: Result Comment: Canc elled via OM: Order cancelled - Patient discharged Performed By: #### L 500.2500, L100.0100 ####[facility] [address] [place], [address] Basic Metabolic Profile (BMP) Normal 133-145 [facility] Comment on above: Result Comment: Canc elled via OM: Order cancelled - Patient discharged Performed By: #### L 500.2500, L100.0100 ####[facility] [address] [place], [address] CBC W/Diff, Automatedon 06-0 6-2024 Absolute Neut Normal 2.0-7.7 [facility] Comment on above: Result Comment: Canc elled via OM: Order cancelled - Patient discharged Performed By: #### L 500.2500, L100.0100 ####[facility] [address] [place], [address] HCT Normal 37-47 [facility] Comment on above: Result Comment: Canc elled via OM: Order cancelled - Patient discharged Performed By: #### L 500.2500, L100.0100 ####[facility] [address] [place], [address] HGB Normal 12.0-15.0 [facility] Comment on above: Result Comment: Canc elled via OM: Order cancelled - Patient discharged Performed By: #### L 500.2500, L100.0100 ####[facility] [address] [place], [address] MCH Normal 27.0-32.0 [facility] Comment on above: Result Comment: Canc elled via OM: Order cancelled - Patient discharged Performed By: #### L 500.2500, L100.0100 ####[facility] [address] [place], [address] MCHC Normal 32-36 [facility] Comment on above: Result Comment: Canc elled via OM: Order cancelled - Patient discharged Performed By: #### L 500.2500, L100.0100 ####[facility] [address] [place], [address] MCV Normal 81-99 [facility] Comment on above: Result Comment: Canc elled via OM: Order cancelled - Patient discharged Performed By: #### L 500.2500, L100.0100 ####[facility] [address] [place], [address] NEUT% Normal 47-70 [facility] Comment on above: Result Comment: Canc elled via OM: Order cancelled - Patient discharged Performed By: #### L 500.2500, L100.0100 ####[facility] [address] [place], [address] PLT Normal 150-450 [facility] Comment on above: Result Comment: Canc elled via OM: Order cancelled - Patient discharged Performed By: #### L 500.2500, L100.0100 ####[facility] [address] [place], [address] RBC Normal 4.2-5.4 [facility] Comment on above: Result Comment: Canc elled via OM: Order cancelled - Patient discharged Performed By: #### L 500.2500, L100.0100 ####[facility] [address] [place], [address] RDW CV Normal 11.6-14.6 [facility] Comment on above: Result Comment: Canc elled via OM: Order cancelled - Patient discharged Performed By: #### L 500.2500, L100.0100 ####[facility] [address] [place], [address] RDW SD Normal 35.1-43.9 [facility] Comment on above: Result Comment: Canc elled via OM: Order cancelled - Patient discharged Performed By: #### L 500.2500, L100.0100 ####[facility] [address] [place], [address] WBC Normal 4.4-11.0 [facility] Comment on above: Result Comment: Canc elled via OM: Order cancelled - Patient discharged Performed By: #### L 500.2500, L100.0100 ####[facility] [address] [place], [address] Basic Metabolic Profile (BMP )on 01-30-2025 BUN Normal 4-19 [facility] Comment on above: Result Comment: Canc elled via OM: Order cancelled - Patient discharged Performed By: #### L 500.2500, L100.0100 ####[facility] [address] [place], [address] BUN/CRE Normal 10-20 [facility] Comment on above: Result Comment: Canc elled via OM: Order cancelled - Patient discharged Performed By: #### L 500.2500, L100.0100 ####[facility] [address] [place], [address] Calcium Normal 7.6-11.0 [facility] Comment on above: Result Comment: Canc elled via OM: Order cancelled - Patient discharged Performed By: #### L 500.2500, L100.0100 ####[facility] [address] [place], [address] CL Normal 98-108 [facility] Comment on above: Result Comment: Canc elled via OM: Order cancelled - Patient discharged Performed By: #### L 500.2500, L100.0100 ####[facility] [address] [place], [address] CO2 Normal 21.0-32.0 [facility] Comment on above: Result Comment: Canc elled via OM: Order cancelled - Patient discharged Performed By: #### L 500.2500, L100.0100 ####[facility] [address] [place], [address] CREAT,SERUM Normal 0.70-1.20 [facility] Comment on above: Result Comment: Canc elled via OM: Order cancelled - Patient discharged Performed By: #### L 500.2500, L100.0100 ####[facility] [address] [place], [address] eGFR Normal >60 [facility] Comment on above: Result Comment: Canc elled via OM: Order cancelled - Patient discharged Performed By: #### L 500.2500, L100.0100 ####[facility] [address] [place], [address] GAP Normal 5-15 [facility] Comment on above: Result Comment: Canc elled via OM: Order cancelled - Patient discharged Performed By: #### L 500.2500, L100.0100 ####[facility] [address] [place], [address] GLU Normal 70-99 [facility] Comment on above: Result Comment: Canc elled via OM: Order cancelled - Patient discharged Performed By: #### L 500.2500, L100.0100 ####[facility] [address] [place], [address] Potassium Normal 3.3-5.1 [facility] Comment on above: Result Comment: Canc elled via OM: Order cancelled - Patient discharged Performed By: #### L 500.2500, L100.0100 ####[facility] [address] [place], [address] Basic Metabolic Profile (BMP) Normal 133-145 [facility] Comment on above: Result Comment: Canc elled via OM: Order cancelled - Patient discharged Performed By: #### L 500.2500, L100.0100 ####[facility] [address] [place], [address] CBC W/Diff, Automatedon 06-0 5-2024 Absolute Neut Normal 2.0-7.7 [facility] Comment on above: Result Comment: Canc elled via OM: Order cancelled - Patient discharged Performed By: #### L 500.2500, L100.0100 ####[facility] [address] [place], [address] HCT Normal 37-47 [facility] Comment on above: Result Comment: Canc elled via OM: Order cancelled - Patient discharged Performed By: #### L 500.2500, L100.0100 ####[facility] [address] [place], [address] HGB Normal 12.0-15.0 [facility] Comment on above: Result Comment: Canc elled via OM: Order cancelled - Patient discharged Performed By: #### L 500.2500, L100.0100 ####[facility] [address] [place], [address] MCH Normal 27.0-32.0 [facility] Comment on above: Result Comment: Canc elled via OM: Order cancelled - Patient discharged Performed By: #### L 500.2500, L100.0100 ####[facility] [address] [place], [address] MCHC Normal 32-36 [facility] Comment on above: Result Comment: Canc elled via OM: Order cancelled - Patient discharged Performed By: #### L 500.2500, L100.0100 ####[facility] [address] [place], [address] MCV Normal 81-99 [facility] Comment on above: Result Comment: Canc elled via OM: Order cancelled - Patient discharged Performed By: #### L 500.2500, L100.0100 ####[facility] [address] [place], [address] NEUT% Normal 47-70 [facility] Comment on above: Result Comment: Canc elled via OM: Order cancelled - Patient discharged Performed By: #### L 500.2500, L100.0100 ####[facility] [address] [place], [address] PLT Normal 150-450 [facility] Comment on above: Result Comment: Canc elled via OM: Order cancelled - Patient discharged Performed By: #### L 500.2500, L100.0100 ####[facility] [address] [place], [address] RBC Normal 4.2-5.4 [facility] Comment on above: Result Comment: Canc elled via OM: Order cancelled - Patient discharged Performed By: #### L 500.2500, L100.0100 ####[facility] [address] [place], [address] RDW CV Normal 11.6-14.6 [facility] Comment on above: Result Comment: Canc elled via OM: Order cancelled - Patient discharged Performed By: #### L 500.2500, L100.0100 ####[facility] [address] [place], [address] RDW SD Normal 35.1-43.9 [facility] Comment on above: Result Comment: Canc elled via OM: Order cancelled - Patient discharged Performed By: #### L 500.2500, L100.0100 ####[facility] [address] [place], [address] WBC Normal 4.4-11.0 [facility] Comment on above: Result Comment: Canc elled via OM: Order cancelled - Patient discharged Performed By: #### L 500.2500, L100.0100 ####[facility] [address] [place], [address] Basic Metabolic Profile (BMP )on 01-29-2025 BUN Normal 4-19 [facility] Comment on above: Result Comment: Canc elled via OM: Order cancelled - Patient discharged Performed By: #### L 500.2500, L100.0100 ####[facility] [address] [place], [address] BUN/CRE Normal 10-20 [facility] Comment on above: Result Comment: Canc elled via OM: Order cancelled - Patient discharged Performed By: #### L 500.2500, L100.0100 ####[facility] [address] [place], [address] Calcium Normal 7.6-11.0 [facility] Comment on above: Result Comment: Canc elled via OM: Order cancelled - Patient discharged Performed By: #### L 500.2500, L100.0100 ####[facility] [address] [place], [address] CL Normal 98-108 [facility] Comment on above: Result Comment: Canc elled via OM: Order cancelled - Patient discharged Performed By: #### L 500.2500, L100.0100 ####[facility] [address] [place], [address] CO2 Normal 21.0-32.0 [facility] Comment on above: Result Comment: Canc elled via OM: Order cancelled - Patient discharged Performed By: #### L 500.2500, L100.0100 ####[facility] [address] [place], [address] CREAT,SERUM Normal 0.70-1.20 [facility] Comment on above: Result Comment: Canc elled via OM: Order cancelled - Patient discharged Performed By: #### L 500.2500, L100.0100 ####[facility] [address] [place], [address] eGFR Normal >60 [facility] Comment on above: Result Comment: Canc elled via OM: Order cancelled - Patient discharged Performed By: #### L 500.2500, L100.0100 ####[facility] [address] [place], [address] GAP Normal 5-15 [facility] Comment on above: Result Comment: Canc elled via OM: Order cancelled - Patient discharged Performed By: #### L 500.2500, L100.0100 ####[facility] [address] [place], [address] GLU Normal 70-99 [facility] Comment on above: Result Comment: Canc elled via OM: Order cancelled - Patient discharged Performed By: #### L 500.2500, L100.0100 ####[facility] [address] [place], [address] Potassium Normal 3.3-5.1 [facility] Comment on above: Result Comment: Canc elled via OM: Order cancelled - Patient discharged Performed By: #### L 500.2500, L100.0100 ####[facility] [address] [place], [address] Basic Metabolic Profile (BMP) Normal 133-145 [facility] Comment on above: Result Comment: Canc elled via OM: Order cancelled - Patient discharged Performed By: #### L 500.2500, L100.0100 ####[facility] [address] [place], [address] CBC W/Diff, Automatedon 06-0 Absolute Neut Normal 2.0-7.7 [facility] Comment on above: Result Comment: Canc elled via OM: Order cancelled - Patient discharged Performed By: #### L 500.2500, L100.0100 ####[facility] [address] [place], [address] HCT Normal 37-47 [facility] Comment on above: Result Comment: Canc elled via OM: Order cancelled - Patient discharged Performed By: #### L 500.2500, L100.0100 ####[facility] [address] [place], [address] HGB Normal 12.0-15.0 [facility] Comment on above: Result Comment: Canc elled via OM: Order cancelled - Patient discharged Performed By: #### L 500.2500, L100.0100 ####[facility] [address] [place], [address] MCH Normal 27.0-32.0 [facility] Comment on above: Result Comment: Canc elled via OM: Order cancelled - Patient discharged Performed By: #### L 500.2500, L100.0100 ####[facility] [address] [place], [address] MCHC Normal 32-36 [facility] Comment on above: Result Comment: Canc elled via OM: Order cancelled - Patient discharged Performed By: #### L 500.2500, L100.0100 ####[facility] [address] [place], [address] MCV Normal 81-99 [facility] Comment on above: Result Comment: Canc elled via OM: Order cancelled - Patient discharged Performed By: #### L 500.2500, L100.0100 ####[facility] [address] [place], [address] NEUT% Normal 47-70 [facility] Comment on above: Result Comment: Canc elled via OM: Order cancelled - Patient discharged Performed By: #### L 500.2500, L100.0100 ####[facility] [address] [place], [address] PLT Normal 150-450 [facility] Comment on above: Result Comment: Canc elled via OM: Order cancelled - Patient discharged Performed By: #### L 500.2500, L100.0100 ####[facility] [address] [place], [address] RBC Normal 4.2-5.4 [facility] Comment on above: Result Comment: Canc elled via OM: Order cancelled - Patient discharged Performed By: #### L 500.2500, L100.0100 ####[facility] [address] [place], [address] RDW CV Normal 11.6-14.6 [facility] Comment on above: Result Comment: Canc elled via OM: Order cancelled - Patient discharged Performed By: #### L 500.2500, L100.0100 ####[facility] [address] [place], [address] RDW SD Normal 35.1-43.9 [facility] Comment on above: Result Comment: Canc elled via OM: Order cancelled - Patient discharged Performed By: #### L 500.2500, L100.0100 ####[facility] [address] [place], [address] WBC Normal 4.4-11.0 [facility] Comment on above: Result Comment: Canc elled via OM: Order cancelled - Patient discharged Performed By: #### L 500.2500, L100.0100 ####[facility] [address] [place], [address] Basic Metabolic Profile (BMP )on 01-28-2025 BUN Normal 4-19 [facility] Comment on above: Result Comment: Canc elled via OM: Order cancelled - Patient discharged Performed By: #### L 500.2500, L100.0100 ####[facility] [address] [place], [address] BUN/CRE Normal 10-20 [facility] Comment on above: Result Comment: Canc elled via OM: Order cancelled - Patient discharged Performed By: #### L 500.2500, L100.0100 ####[facility] [address] [place], [address] Calcium Normal 7.6-11.0 [facility] Comment on above: Result Comment: Canc elled via OM: Order cancelled - Patient discharged Performed By: #### L 500.2500, L100.0100 ####[facility] [address] [place], [address] CL Normal 98-108 [facility] Comment on above: Result Comment: Canc elled via OM: Order cancelled - Patient discharged Performed By: #### L 500.2500, L100.0100 ####[facility] [address] [place], [address] CO2 Normal 21.0-32.0 [facility] Comment on above: Result Comment: Canc elled via OM: Order cancelled - Patient discharged Performed By: #### L 500.2500, L100.0100 ####[facility] [address] [place], [address] CREAT,SERUM Normal 0.70-1.20 [facility] Comment on above: Result Comment: Canc elled via OM: Order cancelled - Patient discharged Performed By: #### L 500.2500, L100.0100 ####[facility] [address] [place], [address] eGFR Normal >60 [facility] Comment on above: Result Comment: Canc elled via OM: Order cancelled - Patient discharged Performed By: #### L 500.2500, L100.0100 ####[facility] [address] [place], [address] GAP Normal 5-15 [facility] Comment on above: Result Comment: Canc elled via OM: Order cancelled - Patient discharged Performed By: #### L 500.2500, L100.0100 ####[facility] [address] [place], [address] GLU Normal 70-99 [facility] Comment on above: Result Comment: Canc elled via OM: Order cancelled - Patient discharged Performed By: #### L 500.2500, L100.0100 ####[facility] [address] [place], [address] Potassium Normal 3.3-5.1 [facility] Comment on above: Result Comment: Canc elled via OM: Order cancelled - Patient discharged Performed By: #### L 500.2500, L100.0100 ####[facility] [address] [place], [address] Basic Metabolic Profile (BMP) Normal 133-145 [facility] Comment on above: Result Comment: Canc elled via OM: Order cancelled - Patient discharged Performed By: #### L 500.2500, L100.0100 ####[facility] [address] [place], [address] CBC W/Diff, Automatedon 06-0 Absolute Neut Normal 2.0-7.7 [facility] Comment on above: Result Comment: Canc elled via OM: Order cancelled - Patient discharged Performed By: #### L 500.2500, L100.0100 ####[facility] [address] [place], [address] HCT Normal 37-47 [facility] Comment on above: Result Comment: Canc elled via OM: Order cancelled - Patient discharged Performed By: #### L 500.2500, L100.0100 ####[facility] [address] [place], [address] HGB Normal 12.0-15.0 [facility] Comment on above: Result Comment: Canc elled via OM: Order cancelled - Patient discharged Performed By: #### L 500.2500, L100.0100 ####[facility] [address] [place], [address] MCH Normal 27.0-32.0 [facility] Comment on above: Result Comment: Canc elled via OM: Order cancelled - Patient discharged Performed By: #### L 500.2500, L100.0100 ####[facility] [address] [place], [address] MCHC Normal 32-36 [facility] Comment on above: Result Comment: Canc elled via OM: Order cancelled - Patient discharged Performed By: #### L 500.2500, L100.0100 ####[facility] [address] [place], [address] MCV Normal 81-99 [facility] Comment on above: Result Comment: Canc elled via OM: Order cancelled - Patient discharged Performed By: #### L 500.2500, L100.0100 ####[facility] [address] [place], [address] NEUT% Normal 47-70 [facility] Comment on above: Result Comment: Canc elled via OM: Order cancelled - Patient discharged Performed By: #### L 500.2500, L100.0100 ####[facility] [address] [place], [address] PLT Normal 150-450 [facility] Comment on above: Result Comment: Canc elled via OM: Order cancelled - Patient discharged Performed By: #### L 500.2500, L100.0100 ####[facility] [address] [place], [address] RBC Normal 4.2-5.4 [facility] Comment on above: Result Comment: Canc elled via OM: Order cancelled - Patient discharged Performed By: #### L 500.2500, L100.0100 ####[facility] [address] [place], [address] RDW CV Normal 11.6-14.6 [facility] Comment on above: Result Comment: Canc elled via OM: Order cancelled - Patient discharged Performed By: #### L 500.2500, L100.0100 ####[facility] [address] [place], [address] RDW SD Normal 35.1-43.9 [facility] Comment on above: Result Comment: Canc elled via OM: Order cancelled - Patient discharged Performed By: #### L 500.2500, L100.0100 ####[facility] [address] [place], [address] WBC Normal 4.4-11.0 [facility] Comment on above: Result Comment: Canc elled via OM: Order cancelled - Patient discharged Performed By: #### L 500.2500, L100.0100 ####[facility] [address] [place], [address] Basic Metabolic Profile (BMP )on 01-27-2025 BUN Normal 4-19 [facility] Comment on above: Result Comment: Canc elled via OM: Order cancelled - Patient discharged Performed By: #### L 100.0100, L500.2500 ####[facility] [address] [place], [address] BUN/CRE Normal 10-20 [facility] Comment on above: Result Comment: Canc elled via OM: Order cancelled - Patient discharged Performed By: #### L 100.0100, L500.2500 ####[facility] [address] [place], [address] Calcium Normal 7.6-11.0 [facility] Comment on above: Result Comment: Canc elled via OM: Order cancelled - Patient discharged Performed By: #### L 100.0100, L500.2500 ####[facility] [address] [place], [address] CL Normal 98-108 [facility] Comment on above: Result Comment: Canc elled via OM: Order cancelled - Patient discharged Performed By: #### L 100.0100, L500.2500 ####[facility] [address] [place], [address] CO2 Normal 21.0-32.0 [facility] Comment on above: Result Comment: Canc elled via OM: Order cancelled - Patient discharged Performed By: #### L 100.0100, L500.2500 ####[facility] [address] [place], [address] CREAT,SERUM Normal 0.70-1.20 [facility] Comment on above: Result Comment: Canc elled via OM: Order cancelled - Patient discharged Performed By: #### L 100.0100, L500.2500 ####[facility] [address] [place], [address] eGFR Normal >60 [facility] Comment on above: Result Comment: Canc elled via OM: Order cancelled - Patient discharged Performed By: #### L 100.0100, L500.2500 ####[facility] [address] [place], [address] GAP Normal 5-15 [facility] Comment on above: Result Comment: Canc elled via OM: Order cancelled - Patient discharged Performed By: #### L 100.0100, L500.2500 ####[facility] [address] [place], [address] GLU Normal 70-99 [facility] Comment on above: Result Comment: Canc elled via OM: Order cancelled - Patient discharged Performed By: #### L 100.0100, L500.2500 ####[facility] [address] [place], [address] Potassium Normal 3.3-5.1 [facility] Comment on above: Result Comment: Canc elled via OM: Order cancelled - Patient discharged Performed By: #### L 100.0100, L500.2500 ####[facility] [address] [place], [address] Basic Metabolic Profile (BMP) Normal 133-145 [facility] Comment on above: Result Comment: Canc elled via OM: Order cancelled - Patient discharged Performed By: #### L 100.0100, L500.2500 ####[facility] [address] [place], [address] Bedside Glucoseon - FINGERSTICK GLU 350 mg/dL High 74-106 [facility] Comment on above: Result Comment: EDGAR GEMENT OF PATIENT CARE PER NURSING PROTOCOL Performed By: #### L 501.080 ####[facility] [address] [place], [address] FINGERSTICK GLU 322 mg/dL High 74-106 [facility] Comment on above: Result Comment: EDGAR GEMENT OF PATIENT CARE PER NURSING PROTOCOL Performed By: #### L 501.080 ####[facility] [address] [place], [address] FINGERSTICK GLU 340 mg/dL High 74-106 [facility] Comment on above: Result Comment: EDGAR GEMENT OF PATIENT CARE PER NURSING PROTOCOL Performed By: #### L 501.080 ####[facility] [address] [place], [address] CBC W/Diff, Automatedon 06-0 Absolute Neut Normal 2.0-7.7 [facility] Comment on above: Result Comment: Canc elled via OM: Order cancelled - Patient discharged Performed By: #### L 100.0100, L500.2500 ####[facility] [address] [place], [address] HCT Normal 37-47 [facility] Comment on above: Result Comment: Canc elled via OM: Order cancelled - Patient discharged Performed By: #### L 100.0100, L500.2500 ####[facility] [address] [place], [address] HGB Normal 12.0-15.0 [facility] Comment on above: Result Comment: Canc elled via OM: Order cancelled - Patient discharged Performed By: #### L 100.0100, L500.2500 ####[facility] [address] [place], [address] MCH Normal 27.0-32.0 [facility] Comment on above: Result Comment: Canc elled via OM: Order cancelled - Patient discharged Performed By: #### L 100.0100, L500.2500 ####[facility] [address] [place], [address] MCHC Normal 32-36 [facility] Comment on above: Result Comment: Canc elled via OM: Order cancelled - Patient discharged Performed By: #### L 100.0100, L500.2500 ####[facility] [address] [place], [address] MCV Normal 81-99 [facility] Comment on above: Result Comment: Canc elled via OM: Order cancelled - Patient discharged Performed By: #### L 100.0100, L500.2500 ####[facility] [address] [place], [address] NEUT% Normal 47-70 [facility] Comment on above: Result Comment: Canc elled via OM: Order cancelled - Patient discharged Performed By: #### L 100.0100, L500.2500 ####[facility] [address] [place], [address] PLT Normal 150-450 [facility] Comment on above: Result Comment: Canc elled via OM: Order cancelled - Patient discharged Performed By: #### L 100.0100, L500.2500 ####[facility] [address] [place], [address] RBC Normal 4.2-5.4 [facility] Comment on above: Result Comment: Canc elled via OM: Order cancelled - Patient discharged Performed By: #### L 100.0100, L500.2500 ####[facility] [address] [place], [address] RDW CV Normal 11.6-14.6 [facility] Comment on above: Result Comment: Canc elled via OM: Order cancelled - Patient discharged Performed By: #### L 100.0100, L500.2500 ####[facility] [address] [place], [address] RDW SD Normal 35.1-43.9 [facility] Comment on above: Result Comment: Canc elled via OM: Order cancelled - Patient discharged Performed By: #### L 100.0100, L500.2500 ####[facility] [address] [place], [address] WBC Normal 4.4-11.0 [facility] Comment on above: Result Comment: Canc elled via OM: Order cancelled - Patient discharged Performed By: #### L 100.0100, L500.2500 ####[facility] [address] [place], [address] Office Visiton 01-27-2025 Follow-up visit [id number] Kathleen Villa 1995 F Date Provider Department Center 01/27/2025 233-MISHEL ORTEZ [facility] [place] None Family History Problem Relation Age of Onset Anxiety disorder Mother Multiple sclerosis Father Psoriasis Father Family Status - Relation Status Age at Mother Alive Father Alive Level of Service:44691 SD OFFICE/OUTPATIENT ESTABLISHED MOD MDM 30 MIN Reason for Visit and Comments: Skin Lesion [[id number]] - (PKN) Normal [facility] Progress Noteon 01-27-2025 Progress Note DATE OF SERVICE: 01/27/2025 PATIENT NAME: Kathleen Villa : 1995 AGE: 29 y.o. CLINIC NUMBER: [id number] Visit type: Established patient Chief Complaint Patient [...] Adhesive? Yes- adhesives. Social History: Born/raised in [place]. Excessive sun exposure: Yes Used tanning beds: [...] exposure. Patien (more content not included)... Normal [facility] Basic Metabolic Profile (BMP )on 01-26-2025 BUN/CRE 7.8 RATIO Low 10-20 [facility] Comment on above: Performed By: #### L 100.0100, L500.2500 ####[facility] [address] [place], [address] Calcium [Mass/Vol] 8.5 mg/dL Normal 7.6-11.0 [facility] Comment on above: Performed By: #### L 100.0100, L500.2500 ####[facility] [address] [place], [address] Chloride [Moles/Vol] 97 mmol/L Low 98-108 [facility] Comment on above: Performed By: #### L 100.0100, L500.2500 ####[facility] [address] [place], [address] CO2 [Moles/Vol] 12.9 mmol/L Low 21.0-32.0 [facility] Comment on above: Performed By: #### L 100.0100, L500.2500 ####[facility] [address] [place], [address] Creatinine [Mass/Vol] 0.76 mg/dL Normal 0.70-1.20 [facility] Comment on above: Performed By: #### L 100.0100, L500.2500 ####[facility] [address] [place], [address] ECRCL 109.19 ml/min Normal 50-250 [facility] Comment on above: Performed By: #### L 100.0100, L500.2500 ####[facility] [address] [place], [address] GAP 24 High 5-15 [facility] Comment on above: Performed By: #### L 100.0100, L500.2500 ####[facility] [address] [place], [address] GFR/1.73 sq M.predicted among non-blacks MDRD (S/P/Bld) [Vol rate/Area] 109 mL/min/{1.73_m2} Normal >60 [facility] Comment on above: Result Comment: mL/m in/1.73m2 CKD-EPI Creatinine Equation (2020) Performed By: #### L 100.0100, L500.2500 ####[facility] [address] [place], [address] Glucose [Mass/Vol] 315 mg/dL High 70-99 [facility] Comment on above: Performed By: #### L 100.0100, L500.2500 ####[facility] [address] [place], [address] Potassium [Moles/Vol] 3.0 mmol/L Low 3.3-5.1 [facility] Comment on above: Performed By: #### L 100.0100, L500.2500 ####[facility] [address] [place], [address] Sodium [Moles/Vol] 133 mmol/L Normal 133-145 [facility] Comment on above: Performed By: #### L 100.0100, L500.2500 ####[facility] [address] [place], [address] Urea nitrogen [Mass/Vol] 6 mg/dL Normal 4-19 [facility] Comment on above: Performed By: #### L 100.0100, L500.2500 ####[facility] [address] [place], [address] Bedside Glucoseon 01-26-2024 FINGERSTICK GLU 328 mg/dL High 74-106 [facility] Comment on above: Result Comment: EDGAR GEMENT OF PATIENT CARE PER NURSING PROTOCOL Performed By: #### L 501.080 ####[facility] [address] [place], [address] FINGERSTICK GLU 306 mg/dL High 74-106 [facility] Comment on above: Result Comment: EDGAR GEMENT OF PATIENT CARE PER NURSING PROTOCOL Performed By: #### L 501.080 ####[facility] [address] [place], [address] CBC W/Diff, Automatedon 06-0 Absolute Lymph 1.50 X10 3/uL Normal 0.83-4.51 [facility] Comment on above: Performed By: #### L 100.0100, L500.2500 ####[facility] [address] [place], [address] Absolute Neut 13.5 X10 3/uL High 2.0-7.7 [facility] Comment on above: Performed By: #### L 100.0100, L500.2500 ####[facility] [address] [place], [address] Basophils/100 WBC (Bld) 0.3 % Normal 0-1 [facility] Comment on above: Performed By: #### L 100.0100, L500.2500 ####[facility] [address] [place], [address] Eosinophils/100 WBC (Bld) 0.0 % Normal 0-5 [facility] Comment on above: Performed By: #### L 100.0100, L500.2500 ####[facility] [address] [place], [address] Erythrocyte distribution width (RBC) [Ratio] 13.1 % Normal 11.6-14.6 [facility] Comment on above: Performed By: #### L 100.0100, L500.2500 ####[facility] [address] [place], [address] Hematocrit (Bld) [Volume fraction] 38.8 % Normal 37-47 [facility] Comment on above: Performed By: #### L 100.0100, L500.2500 ####[facility] [address] [place], [address] Hemoglobin (Bld) [Mass/Vol] 13.4 g/dL Normal 12.0-15.0 [facility] Comment on above: Performed By: #### L 100.0100, L500.2500 ####[facility] [address] [place], [address] IG% 1.300 High 0.0-0.9 [facility] Comment on above: Result Comment: IG% - Immature Granulocytes (promyelocytes, myelocytes andmetamyelocytes) > 1% indicates that a LEFT SHIFT is Present. Performed By: #### L 100.0100, L500.2500 ####[facility] [address] [place], [address] Lymphocytes/100 WBC (Bld) 9.3 % Low 19-41 [facility] Comment on above: Performed By: #### L 100.0100, L500.2500 ####[facility] [address] [place], [address] MCH (RBC) [Entitic mass] 30.0 pg Normal 27.0-32.0 [facility] Comment on above: Performed By: #### L 100.0100, L500.2500 ####[facility] [address] [place], [address] MCHC (RBC) [Mass/Vol] 34.5 g/dL Normal 32-36 [facility] Comment on above: Performed By: #### L 100.0100, L500.2500 ####[facility] [address] [place], [address] MCV (RBC) [Entitic vol] 86.8 fL Normal 81-99 [facility] Comment on above: Performed By: #### L 100.0100, L500.2500 ####[facility] [address] [place], [address] Monocytes/100 WBC (Bld) 5.2 % Normal 0-10 [facility] Comment on above: Performed By: #### L 100.0100, L500.2500 ####[facility] [address] [place], [address] Neutrophils/100 WBC (Bld) 83.9 % High 47-70 [facility] Comment on above: Performed By: #### L 100.0100, L500.2500 ####[facility] [address] [place], [address] Nucleated RBC (Bld) [#/Vol] 0 10*3/uL Normal 0-5 [facility] Comment on above: Performed By: #### L 100.0100, L500.2500 ####[facility] [address] [place], [address] Platelet mean volume (Bld) [Entitic vol] 11.5 fL Normal 6.2-12.0 [facility] Comment on above: Performed By: #### L 100.0100, L500.2500 ####[facility] [address] [place], [address] Platelets (Bld) [#/Vol] 169 10*3/uL Normal 150-450 [facility] Comment on above: Performed By: #### L 100.0100, L500.2500 ####[facility] [address] [place], [address] RBC (Bld) [#/Vol] 4.47 10*6/uL Normal 4.2-5.4 [facility] Comment on above: Performed By: #### L 100.0100, L500.2500 ####[facility] [address] [place], [address] RDW SD 41.1 fl Normal 35.1-43.9 [facility] Comment on above: Performed By: #### L 100.0100, L500.2500 ####[facility] [address] [place], [address] WBC (Bld) [#/Vol] 16.1 10*3/uL High 4.4-11.0 [facility] Comment on above: Performed By: #### L 100.0100, L500.2500 ####[facility] [address] [place], [address] Discharge Instructionon 06-0 Discharge Instruction Normal [facility] Basic Metabolic Profile (BMP )on 01-25-2025 BUN/CRE 8.0 RATIO Low 10-20 [facility] Comment on above: Performed By: #### L 100.0100, L500.2500 ####[facility] [address] [place], [address] Calcium [Mass/Vol] 8.1 mg/dL Normal 7.6-11.0 [facility] Comment on above: Performed By: #### L 100.0100, L500.2500 ####[facility] [address] [place], [address] Chloride [Moles/Vol] 100 mmol/L Normal 98-108 [facility] Comment on above: Performed By: #### L 100.0100, L500.2500 ####[facility] [address] [place], [address] CO2 [Moles/Vol] 14.7 mmol/L Low 21.0-32.0 [facility] Comment on above: Performed By: #### L 100.0100, L500.2500 ####[facility] [address] [place], [address] Creatinine [Mass/Vol] 0.66 mg/dL Low 0.70-1.20 [facility] Comment on above: Performed By: #### L 100.0100, L500.2500 ####[facility] [address] [place], [address] ECRCL 125.73 ml/min Normal 50-250 [facility] Comment on above: Performed By: #### L 100.0100, L500.2500 ####[facility] [address] [place], [address] GAP 22 High 5-15 [facility] Comment on above: Performed By: #### L 100.0100, L500.2500 ####[facility] [address] [place], [address] GFR/1.73 sq M.predicted among non-blacks MDRD (S/P/Bld) [Vol rate/Area] 121 mL/min/{1.73_m2} Normal >60 [facility] Comment on above: Result Comment: mL/m in/1.73m2 CKD-EPI Creatinine Equation (2020) Performed By: #### L 100.0100, L500.2500 ####[facility] [address] [place], [address] Glucose [Mass/Vol] 287 mg/dL High 70-99 [facility] Comment on above: Performed By: #### L 100.0100, L500.2500 ####[facility] [address] [place], [address] Potassium [Moles/Vol] 2.9 mmol/L Low 3.3-5.1 [facility] Comment on above: Performed By: #### L 100.0100, L500.2500 ####[facility] [address] [place], [address] Sodium [Moles/Vol] 136 mmol/L Normal 133-145 [facility] Comment on above: Performed By: #### L 100.0100, L500.2500 ####[facility] [address] [place], [address] Urea nitrogen [Mass/Vol] 5 mg/dL Normal 4-19 [facility] Comment on above: Performed By: #### L 100.0100, L500.2500 ####[facility] [address] [place], [address] Bedside Glucoseon --2024 FINGERSTICK GLU 352 mg/dL High 74-106 [facility] Comment on above: Result Comment: EDGAR GEMENT OF PATIENT CARE PER NURSING PROTOCOL Performed By: #### L 501.080 ####[facility] [address] [place], [address] FINGERSTICK GLU 220 mg/dL High 74-106 [facility] Comment on above: Result Comment: EDGAR GEMENT OF PATIENT CARE PER NURSING PROTOCOL Performed By: #### L 501.080 ####[facility] [address] [place], [address] CBC W/Diff, Automatedon 05-3 Absolute Lymph 1.08 X10 3/uL Normal 0.83-4.51 [facility] Comment on above: Performed By: #### L 100.0100, L500.2500 ####[facility] [address] [place], [address] Absolute Neut 19.8 X10 3/uL High 2.0-7.7 [facility] Comment on above: Performed By: #### L 100.0100, L500.2500 ####[facility] [address] [place], [address] Basophils/100 WBC (Bld) 0.2 % Normal 0-1 [facility] Comment on above: Performed By: #### L 100.0100, L500.2500 ####[facility] [address] [place], [address] Eosinophils/100 WBC (Bld) 0.0 % Normal 0-5 [facility] Comment on above: Performed By: #### L 100.0100, L500.2500 ####[facility] [address] [place], [address] Erythrocyte distribution width (RBC) [Ratio] 12.9 % Normal 11.6-14.6 [facility] Comment on above: Performed By: #### L 100.0100, L500.2500 ####[facility] [address] [place], [address] Hematocrit (Bld) [Volume fraction] 32.9 % Low 37-47 [facility] Comment on above: Performed By: #### L 100.0100, L500.2500 ####[facility] [address] [place], [address] Hemoglobin (Bld) [Mass/Vol] 11.3 g/dL Low 12.0-15.0 [facility] Comment on above: Performed By: #### L 100.0100, L500.2500 ####[facility] [address] [place], [address] IG% 1.100 High 0.0-0.9 [facility] Comment on above: Result Comment: IG% - Immature Granulocytes (promyelocytes, myelocytes andmetamyelocytes) > 1% indicates that a LEFT SHIFT is Present. Performed By: #### L 100.0100, L500.2500 ####[facility] [address] [place], [address] Lymphocytes/100 WBC (Bld) 4.8 % Low 19-41 [facility] Comment on above: Performed By: #### L 100.0100, L500.2500 ####[facility] [address] [place], [address] MCH (RBC) [Entitic mass] 29.7 pg Normal 27.0-32.0 [facility] Comment on above: Performed By: #### L 100.0100, L500.2500 ####[facility] [address] [place], [address] MCHC (RBC) [Mass/Vol] 34.3 g/dL Normal 32-36 [facility] Comment on above: Performed By: #### L 100.0100, L500.2500 ####[facility] [address] [place], [address] MCV (RBC) [Entitic vol] 86.6 fL Normal 81-99 [facility] Comment on above: Performed By: #### L 100.0100, L500.2500 ####[facility] [address] [place], [address] Monocytes/100 WBC (Bld) 6.8 % Normal 0-10 [facility] Comment on above: Performed By: #### L 100.0100, L500.2500 ####[facility] [address] [place], [address] Neutrophils/100 WBC (Bld) 87.1 % High 47-70 [facility] Comment on above: Performed By: #### L 100.0100, L500.2500 ####[facility] [address] [place], [address] Nucleated RBC (Bld) [#/Vol] 0 10*3/uL Normal 0-5 [facility] Comment on above: Performed By: #### L 100.0100, L500.2500 ####[facility] [address] [place], [address] Platelet mean volume (Bld) [Entitic vol] 12.0 fL Normal 6.2-12.0 [facility] Comment on above: Performed By: #### L 100.0100, L500.2500 ####[facility] [address] [place], [address] Platelets (Bld) [#/Vol] 129 10*3/uL Low 150-450 [facility] Comment on above: Performed By: #### L 100.0100, L500.2500 ####[facility] [address] [place], [address] RBC (Bld) [#/Vol] 3.80 10*6/uL Low 4.2-5.4 [facility] Comment on above: Performed By: #### L 100.0100, L500.2500 ####[facility] [address] [place], [address] RDW SD 40.6 fl Normal 35.1-43.9 [facility] Comment on above: Performed By: #### L 100.0100, L500.2500 ####[facility] [address] [place], [address] WBC (Bld) [#/Vol] 22.7 10*3/uL High 4.4-11.0 [facility] Comment on above: Performed By: #### L 100.0100, L500.2500 ####[facility] [address] [place], [address] Magnesiumon 01-25-2025 Magnesium [Mass/Vol] 1.6 mg/dL Normal 1.5-2.2 [facility] Comment on above: Performed By: #### L 501.2300, L501.5200 ####[facility] [address] [place], [address] Phosphoruson 01-25-2025 Phosphate [Mass/Vol] 2.1 mg/dL Low 2.7-4.5 [facility] Comment on above: Performed By: #### L 501.2300, L501.5200 ####[facility] [address] [place], [address] Basic Metabolic Profile (BMP )on 01-24-2025 BUN/CRE 6.3 RATIO Low 10-20 [facility] Comment on above: Performed By: #### L 500.2500 ####[facility] [address] [place], [address] Calcium [Mass/Vol] 7.6 mg/dL Normal 7.6-11.0 [facility] Comment on above: Performed By: #### L 500.2500 ####[facility] [address] [place], [address] Chloride [Moles/Vol] 111 mmol/L High 98-108 [facility] Comment on above: Performed By: #### L 500.2500 ####[facility] [address] [place], [address] CO2 [Moles/Vol] 18.8 mmol/L Low 21.0-32.0 [facility] Comment on above: Performed By: #### L 500.2500 ####[facility] [address] [place], [address] Creatinine [Mass/Vol] 0.64 mg/dL Low 0.70-1.20 [facility] Comment on above: Performed By: #### L 500.2500 ####[facility] [address] [place], [address] ECRCL 129.66 ml/min Normal 50-250 [facility] Comment on above: Performed By: #### L 500.2500 ####[facility] [address] [place], [address] GAP 6 Normal 5-15 [facility] Comment on above: Performed By: #### L 500.2500 ####[facility] [address] [place], [address] GFR/1.73 sq M.predicted among non-blacks MDRD (S/P/Bld) [Vol rate/Area] 122 mL/min/{1.73_m2} Normal >60 [facility] Comment on above: Result Comment: mL/m in/1.73m2 CKD-EPI Creatinine Equation (2020) Performed By: #### L 500.2500 ####[facility] [address] [place], [address] Glucose [Mass/Vol] 182 mg/dL High 70-99 [facility] Comment on above: Performed By: #### L 500.2500 ####[facility] [address] [place], [address] Potassium [Moles/Vol] 3.9 mmol/L Normal 3.3-5.1 [facility] Comment on above: Performed By: #### L 500.2500 ####[facility] [address] [place], [address] Sodium [Moles/Vol] 136 mmol/L Normal 133-145 [facility] Comment on above: Performed By: #### L 500.2500 ####[facility] [address] [place], [address] Urea nitrogen [Mass/Vol] 4 mg/dL Normal 4-19 [facility] Comment on above: Performed By: #### L 500.2500 ####[facility] [address] [place], [address] CO2 [Moles/Vol] 9.9 mmol/L Invalid Interpretation Code 21.0-32.0 [facility] Comment on above: Order Comment: Call [...] by same. Performed By: #### L 500.2500 ####[facility] [address] [place], [place], [id number] BUN/CRE 8.6 RATIO Low 10-20 [facility] Comment on above: Order Comment: Call with results STAT Performed By: #### L 500.2500 ####[facility] [address] [place], [place], [address] Calcium [Mass/Vol] 7.8 mg/dL Normal 7.6-11.0 [facility] Comment on above: Order Comment: Call with results STAT Performed By: #### L 500.2500 ####[facility] [address] [place], [address] Chloride [Moles/Vol] 113 mmol/L High 98-108 [facility] Comment on above: Order Comment: Call with results STAT Performed By: #### L 500.2500 ####[facility] [address] [place], [address] CO2 [Moles/Vol] 18.6 mmol/L Low 21.0-32.0 [facility] Comment on above: Order Comment: Call MD with results STAT Performed By: #### L 500.2500 ####[facility] [address] [place], [address] Creatinine [Mass/Vol] 0.65 mg/dL Low 0.70-1.20 [facility] Comment on above: Order Comment: Call MD with results STAT Performed By: #### L 500.2500 ####[facility] [address] [place], [address] ECRCL 127.66 ml/min Normal 50-250 [facility] Comment on above: Order Comment: Call MD with results STAT Performed By: #### L 500.2500 ####[facility] [address] [place], [address] GAP 9 Normal 5-15 [facility] Comment on above: Order Comment: Call MD with results STAT Performed By: #### L 500.2500 ####[facility] [address] [place], [address] GFR/1.73 sq M.predicted among non-blacks MDRD (S/P/Bld) [Vol rate/Area] 121 mL/min/{1.73_m2} Normal >60 [facility] Comment on above: Order Comment: Call MD with results STAT Result Comment: mL/m in/1.73m2 CKD-EPI Creatinine Equation (2020) Performed By: #### L 500.2500 ####[facility] [address] [place], [address] Glucose [Mass/Vol] 121 mg/dL High 70-99 [facility] Comment on above: Order Comment: Call MD with results STAT Performed By: #### L 500.2500 ####[facility] [address] [place], [address] Potassium [Moles/Vol] 2.9 mmol/L Low 3.3-5.1 [facility] Comment on above: Order Comment: Call MD with results STAT Performed By: #### L 500.2500 ####[facility] [address] [place], [address] Sodium [Moles/Vol] 141 mmol/L Normal 133-145 [facility] Comment on above: Order Comment: Call MD with results STAT Performed By: #### L 500.2500 ####[facility] [address] [place], [address] Urea nitrogen [Mass/Vol] 6 mg/dL Normal 4-19 [facility] Comment on above: Order Comment: Call MD with results STAT Performed By: #### L 500.2500 ####[facility] [address] [place], [address] Bedside Glucoseon 01-24-2025 FINGERSTICK GLU 304 mg/dL High 74-106 [facility] Comment on above: Result Comment: EDGAR GEMENT OF PATIENT CARE PER NURSING PROTOCOL Performed By: #### L 501.080 ####[facility] [address] [place], [address] FINGERSTICK GLU 239 mg/dL High -[address] [place] [address] Comment on above: Result Comment: EDGAR GEMENT OF PATIENT CARE PER NURSING PROTOCOL Performed By: #### L 501.080 ####[facility] [address] [place], [address] FINGERSTICK GLU 400 mg/dL High -106 [facility] Comment on above: Result Comment: EDGAR GEMENT OF PATIENT CARE PER NURSING PROTOCOL Performed By: #### L 501.080 ####[facility] [address] [place], [address] FINGERSTICK GLU 309 mg/dL High 74-106 [facility] Comment on above: Result Comment: EDGAR GEMENT OF PATIENT CARE PER NURSING PROTOCOL Performed By: #### L 501.080 ####[facility] [address] [place], [address] FINGERSTICK GLU 261 mg/dL High 74-106 [facility] Comment on above: Result Comment: EDGAR GEMENT OF PATIENT CARE PER NURSING PROTOCOL Performed By: #### L 501.080 ####[facility] [address] [place], [address] FINGERSTICK GLU 129 mg/dL High 74-106 [facility] Comment on above: Result Comment: EDGAR GEMENT OF PATIENT CARE PER NURSING PROTOCOL Performed By: #### L 501.080 ####[facility] [address] [place], [address] FINGERSTICK GLU 177 mg/dL High 74-106 [facility] Comment on above: Result Comment: EDGAR GEMENT OF PATIENT CARE PER NURSING PROTOCOL Performed By: #### L 501.080 ####[facility] [address] [place], [address] FINGERSTICK GLU 167 mg/dL High 74-106 [facility] Comment on above: Result Comment: EDGAR GEMENT OF PATIENT CARE PER NURSING PROTOCOL Performed By: #### L 501.080 ####[facility] [address] [place], [address] FINGERSTICK GLU 172 mg/dL High 74-106 [facility] Comment on above: Result Comment: EDGAR GEMENT OF PATIENT CARE PER NURSING PROTOCOL Performed By: #### L 501.080 ####[facility] [address] [place], [address] FINGERSTICK GLU 156 mg/dL High 74-106 [facility] Comment on above: Result Comment: EDGAR GEMENT OF PATIENT CARE PER NURSING PROTOCOL Performed By: #### L 501.080 ####[facility] [address] [place], [address] FINGERSTICK GLU 123 mg/dL High 74-106 [facility] Comment on above: Result Comment: EDGAR GEMENT OF PATIENT CARE PER NURSING PROTOCOL Performed By: #### L 501.080 ####[facility] [address] [place], [address] FINGERSTICK GLU 97 mg/dL Normal 74-106 [facility] Comment on above: Result Comment: EDGAR GEMENT OF PATIENT CARE PER NURSING PROTOCOL Performed By: #### L 501.080 ####[facility] [address] [place], [address] FINGERSTICK GLU 115 mg/dL High 74-106 [facility] Comment on above: Result Comment: EDGAR GEMENT OF PATIENT CARE PER NURSING PROTOCOL Performed By: #### L 501.080 ####[facility] [address] [place], [address] FINGERSTICK GLU 143 mg/dL High -106 [facility] Comment on above: Result Comment: EDGAR GEMENT OF PATIENT CARE PER NURSING PROTOCOL Performed By: #### L 501.080 ####[facility] [address] [place], [address] CBC W/Diff, Automatedon 05-3 SMEAR COMMENT COMMENT Normal [facility] Comment on above: Result Comment: LYMP HOPENIA. Performed By: #### L 100.0100 ####[facility] [address] [place], [address] PLT EST MOD DEC Normal ADEQ [facility] Comment on above: Performed By: #### L 100.0100 ####[facility] [address] [place], [address] Basic Metabolic Profile (BMP )on 01-23-2025 BUN/CRE 11.7 RATIO Normal 10-20 [facility] Comment on above: Order Comment: Call MD with results STAT Performed By: #### L 500.2500 ####[facility] [address] [place], [address] Calcium [Mass/Vol] 7.7 mg/dL Normal 7.6-11.0 [facility] Comment on above: Order Comment: Call MD with results STAT Performed By: #### L 500.2500 ####[facility] [address] [place], [address] Chloride [Moles/Vol] 112 mmol/L High 98-108 [facility] Comment on above: Order Comment: Call MD with results STAT Performed By: #### L 500.2500 ####[facility] [address] [place], [address] CO2 [Moles/Vol] 16.8 mmol/L Low 21.0-32.0 [facility] Comment on above: Order Comment: Call MD with results STAT Performed By: #### L 500.2500 ####[facility] [address] [place], [address] Creatinine [Mass/Vol] 0.64 mg/dL Low 0.70-1.20 [facility] Comment on above: Order Comment: Call MD with results STAT Performed By: #### L 500.2500 ####[facility] [address] [place], [address] ECRCL 129.66 ml/min Normal 50-250 [facility] Comment on above: Order Comment: Call MD with results STAT Performed By: #### L 500.2500 ####[facility] [address] [place], [address] GAP 10 Normal 5-15 [facility] Comment on above: Order Comment: Call MD with results STAT Performed By: #### L 500.2500 ####[facility] [address] [place], [address] GFR/1.73 sq M.predicted among non-blacks MDRD (S/P/Bld) [Vol rate/Area] 122 mL/min/{1.73_m2} Normal >60 [facility] Comment on above: Order Comment: Call MD with results STAT Result Comment: mL/m in/1.73m2 CKD-EPI Creatinine Equation (2020) Performed By: #### L 500.2500 ####[facility] [address] [place], [address] Glucose [Mass/Vol] 150 mg/dL High 70-99 [facility] Comment on above: Order Comment: Call MD with results STAT Performed By: #### L 500.2500 ####[facility] [address] [place], [address] Potassium [Moles/Vol] 3.2 mmol/L Low 3.3-5.1 [facility] Comment on above: Order Comment: Call MD with results STAT Performed By: #### L 500.2500 ####[facility] [address] [place], [address] Sodium [Moles/Vol] 139 mmol/L Normal 133-145 [facility] Comment on above: Order Comment: Call MD with results STAT Performed By: #### L 500.2500 ####[facility] [address] [place], [address] Urea nitrogen [Mass/Vol] 8 mg/dL Normal 4-19 [facility] Comment on above: Order Comment: Call MD with results STAT Performed By: #### L 500.2500 ####[facility] [address] [place], [address] BUN/CRE 14.4 RATIO Normal 10-20 [facility] Comment on above: Order Comment: Call MD with results STAT Performed By: #### L 500.2500 ####[facility] [address] [place], [address] Calcium [Mass/Vol] 7.5 mg/dL Low 7.6-11.0 [facility] Comment on above: Order Comment: Call MD with results STAT Performed By: #### L 500.2500 ####[facility] [address] [place], [address] Chloride [Moles/Vol] 112 mmol/L High 98-108 [facility] Comment on above: Order Comment: Call MD with results STAT Performed By: #### L 500.2500 ####[facility] [address] [place], [address] CO2 [Moles/Vol] 13.6 mmol/L Low 21.0-32.0 [facility] Comment on above: Order Comment: Call MD with results STAT Performed By: #### L 500.2500 ####[facility] [address] [place], [address] Creatinine [Mass/Vol] 0.69 mg/dL Low 0.70-1.20 [facility] Comment on above: Order Comment: Call MD with results STAT Performed By: #### L 500.2500 ####[facility] [address] [place], [address] ECRCL 120.26 ml/min Normal 50-250 [facility] Comment on above: Order Comment: Call MD with results STAT Performed By: #### L 500.2500 ####[facility] [address] [place], [address] GAP 13 Normal 5-15 [facility] Comment on above: Order Comment: Call MD with results STAT Performed By: #### L 500.2500 ####[facility] [address] [place], [address] GFR/1.73 sq M.predicted among non-blacks MDRD (S/P/Bld) [Vol rate/Area] 120 mL/min/{1.73_m2} Normal >60 [facility] Comment on above: Order Comment: Call MD with results STAT Result Comment: mL/m in/1.73m2 CKD-EPI Creatinine Equation (2020) Performed By: #### L 500.2500 ####[facility] [address] [place], [address] Glucose [Mass/Vol] 139 mg/dL High 70-99 [facility] Comment on above: Order Comment: Call MD with results STAT Performed By: #### L 500.2500 ####[facility] [address] [place], [address] Potassium [Moles/Vol] 3.4 mmol/L Normal 3.3-5.1 [facility] Comment on above: Order Comment: Call MD with results STAT Performed By: #### L 500.2500 ####[facility] [address] [place], [address] Sodium [Moles/Vol] 139 mmol/L Normal 133-145 [facility] Comment on above: Order Comment: Call MD with results STAT Performed By: #### L 500.2500 ####[facility] [address] [place], [address] Urea nitrogen [Mass/Vol] 10 mg/dL Normal 4-19 [facility] Comment on above: Order Comment: Call MD with results STAT Performed By: #### L 500.2500 ####[facility] [address] [place], [address] BUN/CRE 16.3 RATIO Normal 10-20 [facility] Comment on above: Order Comment: Call MD with results STAT Performed By: #### L 500.2500 ####[facility] [address] [place], [address] Calcium [Mass/Vol] 7.6 mg/dL Normal 7.6-11.0 [facility] Comment on above: Order Comment: Call MD with results STAT Performed By: #### L 500.2500 ####[facility] [address] [place], [address] Chloride [Moles/Vol] 110 mmol/L High 98-108 [facility] Comment on above: Order Comment: Call MD with results STAT Performed By: #### L 500.2500 ####[facility] [address] [place], [address] CO2 [Moles/Vol] 12.5 mmol/L Low 21.0-32.0 [facility] Comment on above: Order Comment: Call MD with results STAT Performed By: #### L 500.2500 ####[facility] [address] [place], [address] Creatinine [Mass/Vol] 0.72 mg/dL Normal 0.70-1.20 [facility] Comment on above: Order Comment: Call MD with results STAT Performed By: #### L 500.2500 ####[facility] [address] [place], [address] ECRCL 115.25 ml/min Normal 50-250 [facility] Comment on above: Order Comment: Call MD with results STAT Performed By: #### L 500.2500 ####[facility] [address] [place], [address] GAP 16 High 5-15 [facility] Comment on above: Order Comment: Call MD with results STAT Performed By: #### L 500.2500 ####[facility] [address] [place], [address] GFR/1.73 sq M.predicted among non-blacks MDRD (S/P/Bld) [Vol rate/Area] 115 mL/min/{1.73_m2} Normal >60 [facility] Comment on above: Order Comment: Call MD with results STAT Result Comment: mL/m in/1.73m2 CKD-EPI Creatinine Equation (2020) Performed By: #### L 500.2500 ####[facility] [address] [place], [address] Glucose [Mass/Vol] 176 mg/dL High 70-99 [facility] Comment on above: Order Comment: Call MD with results STAT Performed By: #### L 500.2500 ####[facility] [address] [place], [address] Potassium [Moles/Vol] 3.7 mmol/L Normal 3.3-5.1 [facility] Comment on above: Order Comment: Call MD with results STAT Performed By: #### L 500.2500 ####[facility] [address] [place], [address] Sodium [Moles/Vol] 138 mmol/L Normal 133-145 [facility] Comment on above: Order Comment: Call MD with results STAT Performed By: #### L 500.2500 ####[facility] [address] [place], [address] Urea nitrogen [Mass/Vol] 12 mg/dL Normal 4-19 [facility] Comment on above: Order Comment: Call MD with results STAT Performed By: #### L 500.2500 ####[facility] [address] [place], [address] BUN/CRE 16.2 RATIO Normal 10-20 [facility] Comment on above: Order Comment: Call MD with results STAT Performed By: #### L 500.2500 ####[facility] [address] [place], [address] Calcium [Mass/Vol] 7.6 mg/dL Normal 7.6-11.0 [facility] Comment on above: Order Comment: Call MD with results STAT Performed By: #### L 500.2500 ####[facility] [address] [place], [address] Chloride [Moles/Vol] 111 mmol/L High 98-108 [facility] Comment on above: Order Comment: Call MD with results STAT Performed By: #### L 500.2500 ####[facility] [address] [place], [address] CO2 [Moles/Vol] 11.0 mmol/L Low 21.0-32.0 [facility] Comment on above: Order Comment: Call MD with results STAT Performed By: #### L 500.2500 ####[facility] [address] [place], [address] Creatinine [Mass/Vol] 0.81 mg/dL Normal 0.70-1.20 [facility] Comment on above: Order Comment: Call MD with results STAT Performed By: #### L 500.2500 ####[facility] [address] [place], [address] ECRCL 102.45 ml/min Normal 50-250 [facility] Comment on above: Order Comment: Call MD with results STAT Performed By: #### L 500.2500 ####[facility] [address] [place], [address] GAP 18 High 5-15 [facility] Comment on above: Order Comment: Call MD with results STAT Performed By: #### L 500.2500 ####[facility] [address] [place], [address] GFR/1.73 sq M.predicted among non-blacks MDRD (S/P/Bld) [Vol rate/Area] 100 mL/min/{1.73_m2} Normal >60 [facility] Comment on above: Order Comment: Call MD with results STAT Result Comment: mL/m in/1.73m2 CKD-EPI Creatinine Equation (2020) Performed By: #### L 500.2500 ####[facility] [address] [place], [address] Glucose [Mass/Vol] 209 mg/dL High 70-99 [facility] Comment on above: Order Comment: Call MD with results STAT Performed By: #### L 500.2500 ####[facility] [address] [place], [address] Potassium [Moles/Vol] 4.5 mmol/L Normal 3.3-5.1 [facility] Comment on above: Order Comment: Call MD with results STAT Result Comment: Hemo lysis present, Results??could be affected.?? Performed By: #### L 500.2500 ####[facility] [address] [place], [address] Sodium [Moles/Vol] 140 mmol/L Normal 133-145 [facility] Comment on above: Order Comment: Call MD with results STAT Performed By: #### L 500.2500 ####[facility] [address] [place], [address] Urea nitrogen [Mass/Vol] 13 mg/dL Normal 4-19 [facility] Comment on above: Order Comment: Call MD with results STAT Performed By: #### L 500.2500 ####[facility] [address] [place], [address] BUN/CRE 21.2 RATIO High 10-20 [facility] Comment on above: Order Comment: Call MD with results STAT Performed By: #### L 500.2500 ####[facility] [address] [place], [address] Calcium [Mass/Vol] 8.4 mg/dL Normal 7.6-11.0 [facility] Comment on above: Order Comment: Call MD with results STAT Performed By: #### L 500.2500 ####[facility] [address] [place], [address] Chloride [Moles/Vol] 102 mmol/L Normal 98-108 [facility] Comment on above: Order Comment: Call MD with results STAT Performed By: #### L 500.2500 ####[facility] [address] [place], [address] CO2 [Moles/Vol] 7.2 mmol/L Invalid Interpretation Code 21.0-32.0 [facility] Comment on above: Order Comment: Call MD with results STAT Result Comment: Crit ical Result(s) Called at: by:??Results read back bysame.Critical Result(s) Called at:0104 by: ROSLYN HAVEN TO LINDAFORREST??Results read back by same. Performed By: #### L 500.2500 ####[facility] [address] [place], [address] Creatinine [Mass/Vol] 1.01 mg/dL Normal 0.70-1.20 [facility] Comment on above: Order Comment: Call MD with results STAT Performed By: #### L 500.2500 ####[facility] [address] [place], [address] ECRCL 82.16 ml/min Normal 50-250 [facility] Comment on above: Order Comment: Call MD with results STAT Performed By: #### L 500.2500 ####[facility] [address] [place], [address] GAP 26 High 5-15 [facility] Comment on above: Order Comment: Call MD with results STAT Performed By: #### L 500.2500 ####[facility] [address] [place], [address] GFR/1.73 sq M.predicted among non-blacks MDRD (S/P/Bld) [Vol rate/Area] 77 mL/min/{1.73_m2} Normal >60 [facility] Comment on above: Order Comment: Call MD with results STAT Result Comment: mL/m in/1.73m2 CKD-EPI Creatinine Equation (2020) Performed By: #### L 500.2500 ####[facility] [address] [place], [address] Glucose [Mass/Vol] 330 mg/dL High 70-99 [facility] Comment on above: Order Comment: Call MD with results STAT Performed By: #### L 500.2500 ####[facility] [address] [place], [address] Potassium [Moles/Vol] 4.4 mmol/L Normal 3.3-5.1 [facility] Comment on above: Order Comment: Call MD with results STAT Result Comment: Hemo lysis present, Results??could be affected.?? Performed By: #### L 500.2500 ####[facility] [address] [place], [address] Sodium [Moles/Vol] 135 mmol/L Normal 133-145 [facility] Comment on above: Order Comment: Call MD with results STAT Performed By: #### L 500.2500 ####[facility] [address] [place], [address] Urea nitrogen [Mass/Vol] 21 mg/dL High 4-19 [facility] Comment on above: Order Comment: Call MD with results STAT Performed By: #### L 500.2500 ####[facility] [address] [place], [address] Bedside Glucoseon 01-23-2025 FINGERSTICK GLU 150 mg/dL High 74-106 [facility] Comment on above: Result Comment: EDGAR GEMENT OF PATIENT CARE PER NURSING PROTOCOL Performed By: #### L 501.080 ####[facility] [address] [place], [address] FINGERSTICK GLU 170 mg/dL High 74-106 [facility] Comment on above: Result Comment: EDGAR GEMENT OF PATIENT CARE PER NURSING PROTOCOL Performed By: #### L 501.080 ####[facility] [address] [place], [address] FINGERSTICK GLU 134 mg/dL High 74-106 [facility] Comment on above: Result Comment: EDGAR GEMENT OF PATIENT CARE PER NURSING PROTOCOL Performed By: #### L 501.080 ####[facility] [address] [place], [address] FINGERSTICK GLU 134 mg/dL High 74-106 [facility] Comment on above: Result Comment: EDGAR GEMENT OF PATIENT CARE PER NURSING PROTOCOL Performed By: #### L 501.080 ####[facility] [address] [place], [address] FINGERSTICK GLU 145 mg/dL High 74-106 [facility] Comment on above: Result Comment: EDGAR GEMENT OF PATIENT CARE PER NURSING PROTOCOL Performed By: #### L 501.080 ####[facility] [address] [place], [address] FINGERSTICK GLU 136 mg/dL High 74-106 [facility] Comment on above: Result Comment: EDGAR GEMENT OF PATIENT CARE PER NURSING PROTOCOL Performed By: #### L 501.080 ####[facility] [address] [place], [address] FINGERSTICK GLU 128 mg/dL High 74-106 [facility] Comment on above: Result Comment: EDGAR GEMENT OF PATIENT CARE PER NURSING PROTOCOL Performed By: #### L 501.080 ####[facility] [address] [place], [address] FINGERSTICK GLU 127 mg/dL High 74-106 [facility] Comment on above: Result Comment: EDGAR GEMENT OF PATIENT CARE PER NURSING PROTOCOL Performed By: #### L 501.080 ####[facility] [address] [place], [address] FINGERSTICK GLU 120 mg/dL High 74-106 [facility] Comment on above: Result Comment: EDGAR GEMENT OF PATIENT CARE PER NURSING PROTOCOL Performed By: #### L 501.080 ####[facility] [address] [place], [address] FINGERSTICK GLU 127 mg/dL High 74-106 [facility] Comment on above: Result Comment: EDGAR GEMENT OF PATIENT CARE PER NURSING PROTOCOL Performed By: #### L 501.080 ####[facility] [address] [place], [address] FINGERSTICK GLU 176 mg/dL High 74-106 [facility] Comment on above: Result Comment: EDGAR GEMENT OF PATIENT CARE PER NURSING PROTOCOL Performed By: #### L 501.080 ####[facility] [address] [place], [address] FINGERSTICK GLU 156 mg/dL High 74-106 [facility] Comment on above: Result Comment: EDGAR GEMENT OF PATIENT CARE PER NURSING PROTOCOL Performed By: #### L 501.080 ####[facility] [address] [place], [address] FINGERSTICK GLU 177 mg/dL High -106 [facility] Comment on above: Result Comment: EDGAR GEMENT OF PATIENT CARE PER NURSING PROTOCOL Performed By: #### L 501.080 ####[facility] [address] [place], [address] FINGERSTICK GLU 200 mg/dL High -106 [facility] Comment on above: Result Comment: EDGAR GEMENT OF PATIENT CARE PER NURSING PROTOCOL Performed By: #### L 501.080 ####[facility] [address] [place], [address] FINGERSTICK GLU 203 mg/dL High -106 [facility] Comment on above: Result Comment: EDGAR GEMENT OF PATIENT CARE PER NURSING PROTOCOL Performed By: #### L 501.080 ####[facility] [address] [place], [address] FINGERSTICK GLU 214 mg/dL High -106 [facility] Comment on above: Result Comment: EDGAR GEMENT OF PATIENT CARE PER NURSING PROTOCOL Performed By: #### L 501.080 ####[facility] [address] [place], [address] FINGERSTICK GLU 217 mg/dL High 74-106 [facility] Comment on above: Result Comment: EDGAR GEMENT OF PATIENT CARE PER NURSING PROTOCOL Performed By: #### L 501.080 ####[facility] [address] [place], [address] FINGERSTICK GLU 230 mg/dL High [address] [place] [address] Comment on above: Result Comment: EDGAR GEMENT OF PATIENT CARE PER NURSING PROTOCOL Performed By: #### L 501.080 ####[facility] [address] [place], [address] FINGERSTICK GLU 253 mg/dL High [address] [place] [address] Comment on above: Result Comment: EDGAR GEMENT OF PATIENT CARE PER NURSING PROTOCOL Performed By: #### L 501.080 ####[facility] [address] [place], [address] FINGERSTICK GLU 286 mg/dL High [address] [place] [address] Comment on above: Result Comment: EDGAR GEMENT OF PATIENT CARE PER NURSING PROTOCOL Performed By: #### L 501.080 ####[facility] [address] [place], [address] FINGERSTICK GLU 258 mg/dL High [address] [place] [address] Comment on above: Result Comment: EDGAR GEMENT OF PATIENT CARE PER NURSING PROTOCOL Performed By: #### L 501.080 ####[facility] [address] [place], [address] FINGERSTICK GLU 269 mg/dL High [address] [place] [address] Comment on above: Result Comment: EDGAR GEMENT OF PATIENT CARE PER NURSING PROTOCOL Performed By: #### L 501.080 ####[facility] [address] [place], [address] CBC W/Diff, Automatedon - SMEAR COMMENT SCANNED Normal [facility] Comment on above: Performed By: #### L 100.0100 ####[facility] [address] [place], [address] Basic Metabolic Profile (BMP )on 01-22-2025 BUN/CRE 21.4 RATIO High 10-20 [facility] Comment on above: Performed By: #### L 100.0100, L500.2500, L501.2450, L500.3400, L700.6800 ####[facility] [address] [place], [address] Calcium [Mass/Vol] 9.4 mg/dL Normal 7.6-11.0 [facility] Comment on above: Performed By: #### L 100.0100, L500.2500, L501.2450, L500.3400, L700.6800 ####[facility] [address] [place], [address] Chloride [Moles/Vol] 92 mmol/L Low 98-108 [facility] Comment on above: Performed By: #### L 100.0100, L500.2500, L501.2450, L500.3400, L700.6800 ####[facility] [address] [place], [address] CO2 [Moles/Vol] 6.3 mmol/L Invalid Interpretation Code 21.0-32.0 [facility] Comment on above: Result Comment: Crit ical Result(s) Called at: by:??[facility]Critical Result(s) Called at: 2055 by: ROSLYN AYERS??Results read back by same. Performed By: #### L 100.0100, L500.2500, L501.2450, L500.3400, L700.6800 ####[facility] [address] [place], [address] Creatinine [Mass/Vol] 1.10 mg/dL Normal 0.70-1.20 [facility] Comment on above: Performed By: #### L 100.0100, L500.2500, L501.2450, L500.3400, L700.6800 ####[facility] [address] [place], [address] GAP 32 High 5-15 [facility] Comment on above: Performed By: #### L 100.0100, L500.2500, L501.2450, L500.3400, L700.6800 ####[facility] [address] [place], [address] GFR/1.73 sq M.predicted among non-blacks MDRD (S/P/Bld) [Vol rate/Area] 69 mL/min/{1.73_m2} Normal >60 [facility] Comment on above: Result Comment: mL/m in/1.73m2 CKD-EPI Creatinine Equation (2020) Performed By: #### L 100.0100, L500.2500, L501.2450, L500.3400, L700.6800 ####[facility] [address] [place], [address] Glucose [Mass/Vol] 507 mg/dL Invalid Interpretation Code 70-99 [facility] Comment on above: Result Comment: Crit ical Result(s) Called at: by:??Results read back bysame.Critical Result(s) Called at: 2055 by: ROSLYN AYERS??Results read back by same.Critical Result(s) Called at: by:??Results read back bysame. Performed By: #### L 100.0100, L500.2500, L501.2450, L500.3400, L700.6800 ####[facility] [address] [place], [address] Potassium [Moles/Vol] 4.7 mmol/L Normal 3.3-5.1 [facility] Comment on above: Performed By: #### L 100.0100, L500.2500, L501.2450, L500.3400, L700.6800 ####[facility] [address] [place], [address] Sodium [Moles/Vol] 130 mmol/L Low 133-145 [facility] Comment on above: Performed By: #### L 100.0100, L500.2500, L501.2450, L500.3400, L700.6800 ####[facility] [address] [place], [address] Urea nitrogen [Mass/Vol] 24 mg/dL High 4-19 [facility] Comment on above: Performed By: #### L 100.0100, L500.2500, L501.2450, L500.3400, L700.6800 ####[facility] [address] [place], [address] Bedside Glucoseon 01-22-2025 FINGERSTICK GLU 369 mg/dL High 74-106 [facility] Comment on above: Result Comment: EDGAR GEMENT OF PATIENT CARE PER NURSING PROTOCOL Performed By: #### L 501.080 ####[facility] [address] [place], [address] FINGERSTICK GLU > 500 Invalid Interpretation Code 74-106 [facility] Comment on above: Result Comment: Insu bill GivenMANAGEMENT OF PATIENT CARE PER NURSING PROTOCOL Performed By: #### L 501.080 ####[facility] [address] [place], [address] FINGERSTICK GLU 492 mg/dL Invalid Interpretation Code 74-106 [facility] Comment on above: Result Comment: Dr Ej foreman FollowedMANAGEMENT OF PATIENT CARE PER NURSING PROTOCOL Performed By: #### L 501.080 ####[facility] [address] [place], [address] Beta-Hydroxbytyrateon 2024 BETA-HYDROXYBUT 6.8 mmol/L Normal 0.0-0.3 [facility] Comment on above: Performed By: #### L 501.6901 ####[facility] [address] [place], [address] CBC W/Diff, Automatedon 05- PLT EST SLT DEC Normal ADEQ [facility] Comment on above: Performed By: #### L 100.0100, L500.2500, L501.2450, L500.3400, L700.6800 ####[facility] [address] [place], [address] SMEAR COMMENT SCANNED Normal [facility] Comment on above: Performed By: #### L 100.0100, L500.2500, L501.2450, L500.3400, L700.6800 ####[facility] [address] [place], [address] Emergency Department Summary on 01-22-2025 Emergency Department Summary Normal [facility] H AND P Exam - Hospitaliston 01-22-2025 H&P Exam - Hospitalist Normal [facility] Lipaseon 01-22-2025 Lipase [Catalytic activity/Vol] 11 U/L Low 13-75 [facility] Comment on above: Result Comment: Sulma schmitz note:LIPASE revised reference range effective 22.New Lipase methodology. Expected to produce lower valuesthan the previous assay method.NEW Reference Range: 13 - 75 U/L Performed By: #### L 100.0100, L500.2500, L501.2450, L500.3400, L700.6800 ####[facility] [address] [place], [address] Liver Profileon 01-22-2025 Albumin [Mass/Vol] 4.6 g/dL Normal 3.5-5.0 [facility] Comment on above: Performed By: #### L 100.0100, L500.2500, L501.2450, L500.3400, L700.6800 ####[facility] [address] [place], [address] ALK PHOS 109 U/L High 35-104 [facility] Comment on above: Performed By: #### L 100.0100, L500.2500, L501.2450, L500.3400, L700.6800 ####[facility] [address] [place], [address] ALT [Catalytic activity/Vol] 11 U/L Normal <=34 [facility] Comment on above: Performed By: #### L 100.0100, L500.2500, L501.2450, L500.3400, L700.6800 ####[facility] [address] [place], [address] AST [Catalytic activity/Vol] 16 U/L Normal <=31 [facility] Comment on above: Performed By: #### L 100.0100, L500.2500, L501.2450, L500.3400, L700.6800 ####[facility] [address] [place], [address] Bilirubin [Mass/Vol] 0.96 mg/dL Normal 0.00-1.30 [facility] Comment on above: Performed By: #### L 100.0100, L500.2500, L501.2450, L500.3400, L700.6800 ####[facility] [address] [place], [address] Bilirubin.direct [Mass/Vol] 0.40 mg/dL High 0.00-0.30 [facility] Comment on above: Performed By: #### L 100.0100, L500.2500, L501.2450, L500.3400, L700.6800 ####[facility] [address] [place], [address] Globulin (S) [Mass/Vol] 3.3 g/dL Normal 2.2-4.2 [facility] Comment on above: Performed By: #### L 100.0100, L500.2500, L501.2450, L500.3400, L700.6800 ####[facility] [address] [place], [address] T PROT 7.9 g/dL Normal 5.9-8.4 [facility] Comment on above: Performed By: #### L 100.0100, L500.2500, L501.2450, L500.3400, L700.6800 ####[facility] [address] [place], [address] ,Serum,hCG Quali.on 01-22-2025 HCG, SERUM QUAL Negative Normal [facility] Comment on above: Performed By: #### L 100.0100, L500.2500, L501.2450, L500.3400, L700.6800 ####[facility] [address] [place], [address] Urinalysis, Completeon 01-22 WBC 0-5 SEEN Normal 0-5 [facility] Comment on above: Order Comment: CRITI CRISTINA VALUE CALLED TO ZION [facility]01/22/252058 Nguyen Lollo.RESULTS READ BACK BY SAME.CLEAN CATCH Performed By: #### L 400.0001 ####[facility] [address] [place], [address] RBC 0-5 SEEN Normal 0-5 [facility] Comment on above: Order Comment: CRITI CRISTINA VALUE CALLED TO ZION TEAL01/22/252058 Nguyen Lollo.RESULTS READ BACK BY SAME.CLEAN CATCH Performed By: #### L 400.0001 ####[facility] [address] [place], [address] BACTERIA 1+ /hpf Normal None Seen [facility] Comment on above: Order Comment: CRITI CRISTINA VALUE CALLED TO ZION TEAL01/22/252058 Nguyen Lollo.RESULTS READ BACK BY SAME.CLEAN CATCH Performed By: #### L 400.0001 ####[facility] [address] [place], [address] EPI,SQUAMOUS 0-5 SEEN Normal 5-10 [facility] Comment on above: Order Comment: CRITI CRISITNA VALUE CALLED TO ZION GUIDO01/22/252058 Nguyen Lollo.RESULTS READ BACK BY SAME.CLEAN CATCH Performed By: #### L 400.0001 ####[facility] [address] [place], [address] Mucus Ql (Urine sed) 0 SEEN Normal [facility] Comment on above: Order Comment: CRITI CRISTINA VALUE CALLED TO ZOIN GUIDO01/22/252058 Nguyen Lollo.RESULTS READ BACK BY SAME.CLEAN CATCH Performed By: #### L 400.0001 ####[facility] [address] [place], [address] Venous Blood Gason 5 Blood Gas Type ISABELLE Normal [facility] Comment on above: Performed By: #### L 9000.0810 ####[facility] [address] [place], [address] CO2 [Moles/Vol] 8 mmol/L Low 23-33 [facility] Comment on above: Performed By: #### L 9000.0810 ####[facility] [address] [place], [address] HCO3 (Bld) [Moles/Vol] 8 mmol/L Low 22-26 [facility] Comment on above: Performed By: #### L 9000.0810 ####[facility] [address] [place], [address] O2 Delivery Dev Not entered [facility] Comment on above: Performed By: #### L 9000.0810 ####[facility] [address] [place], [address] Read Back By Yes [facility] Comment on above: Performed By: #### L 9000.0810 ####[facility] [address] [place], [address] SITE Not entered Normal [facility] Comment on above: Performed By: #### L 9000.0810 ####[facility] [address] [place], [address] VBG BE -21 mmol/L Low -1.0-3.5 [facility] Comment on above: Performed By: #### L 9000.0810 ####[facility] [address] [place], [address] VBG pCO2 20.8 mmHg Low 41-51 [facility] Comment on above: Performed By: #### L 9000.0810 ####[facility] [address] [place], [address] VBG pH 7.17 Invalid Interpretation Code 7.32-7.42 [facility] Comment on above: Performed By: #### L 9000.0810 ####[facility] [address] [place], [address] VBG PO2 48 mmHg High 25-40 [facility] Comment on above: Performed By: #### L 9000.0810 ####[facility] [address] [place], [address] VBG SO2 74 High 50-70 [facility] Comment on above: Performed By: #### L 9000.0810 ####[facility] [address] [place], [address] Abdomen Single Viewon 2024 Abdomen Single View Normal [facility] Visit Repor ton 01-08-2025 Gastroenterology Visit Report Normal [facility] CBC W/Diff, Automatedon -3 Absolute Lymph 1.70 X10 3/uL Normal 0.83-4.51 [facility] Comment on above: Performed By: #### L 501.2300, L100.0100, L500.4050 ####[facility] [address] [place], [address] Absolute Neut 7.3 X10 3/uL Normal 2.0-7.7 [facility] Comment on above: Performed By: #### L 501.2300, L100.0100, L500.4050 ####[facility] [address] [place], [address] Basophils/100 WBC (Bld) 0.5 % Normal 0-1 [facility] Comment on above: Performed By: #### L 501.2300, L100.0100, L500.4050 ####[facility] [address] [place], [address] Eosinophils/100 WBC (Bld) 0.6 % Normal 0-5 [facility] Comment on above: Performed By: #### L 501.2300, L100.0100, L500.4050 ####[facility] [address] [place], [address] Erythrocyte distribution width (RBC) [Ratio] 13.1 % Normal 11.6-14.6 [facility] Comment on above: Performed By: #### L 501.2300, L100.0100, L500.4050 ####[facility] [facility] [address] [place], [address] Hematocrit (Bld) [Volume fraction] 42.8 % Normal 37-47 [facility] Comment on above: Performed By: #### L 501.2300, L100.0100, L500.4050 ####[facility] [address] [place], [address] Hemoglobin (Bld) [Mass/Vol] 14.5 g/dL Normal 12.0-15.0 [facility] Comment on above: Performed By: #### L 501.2300, L100.0100, L500.4050 ####[facility] [address] [place], [address] IG% 0.900 Normal 0.0-0.9 [facility] Comment on above: Result Comment: IG% - Immature Granulocytes (promyelocytes, myelocytes andmetamyelocytes) > 1% indicates that a LEFT SHIFT is Present. Performed By: #### L 501.2300, L100.0100, L500.4050 ####[facility] [address] [place], [address] Lymphocytes/100 WBC (Bld) 17.6 % Low 19-41 [facility] Comment on above: Performed By: #### L 501.2300, L100.0100, L500.4050 ####[facility] [address] [place], [address] MCH (RBC) [Entitic mass] 29.5 pg Normal 27.0-32.0 [facility] Comment on above: Performed By: #### L 501.2300, L100.0100, L500.4050 ####[facility] [address] [place], [address] MCHC (RBC) [Mass/Vol] 33.9 g/dL Normal 32-36 [facility] Comment on above: Performed By: #### L 501.2300, L100.0100, L500.4050 ####[facility] [address] [place], [address] MCV (RBC) [Entitic vol] 87.2 fL Normal 81-99 [facility] Comment on above: Performed By: #### L 501.2300, L100.0100, L500.4050 ####[facility] [address] [place], [address] Monocytes/100 WBC (Bld) 5.3 % Normal 0-10 [facility] Comment on above: Performed By: #### L 501.2300, L100.0100, L500.4050 ####[facility] [address] [place], [address] Neutrophils/100 WBC (Bld) 75.1 % High 47-70 [facility] Comment on above: Performed By: #### L 501.2300, L100.0100, L500.4050 ####[facility] [address] [place], [address] Nucleated RBC (Bld) [#/Vol] 0 10*3/uL Normal 0-5 [facility] Comment on above: Performed By: #### L 501.2300, L100.0100, L500.4050 ####[facility] [address] [place], [address] Platelet mean volume (Bld) [Entitic vol] 12.4 fL High 6.2-12.0 [facility] Comment on above: Performed By: #### L 501.2300, L100.0100, L500.4050 ####[facility] [address] [place], [address] Platelets (Bld) [#/Vol] 149 10*3/uL Low 150-450 [facility] Comment on above: Performed By: #### L 501.2300, L100.0100, L500.4050 ####[facility] [address] [place], [address] RBC (Bld) [#/Vol] 4.91 10*6/uL Normal 4.2-5.4 [facility] Comment on above: Performed By: #### L 501.2300, L100.0100, L500.4050 ####[facility] [address] [place], [address] RDW SD 41.7 fl Normal 35.1-43.9 [facility] Comment on above: Performed By: #### L 501.2300, L100.0100, L500.4050 ####[facility] [address] [place], [address] WBC (Bld) [#/Vol] 9.7 10*3/uL Normal 4.4-11.0 [facility] Comment on above: Performed By: #### L 501.2300, L100.0100, L500.4050 ####[facility] [address] [place], [address] Comprehensive Metabolic Prof [facility] 12-25-2024 Albumin [Mass/Vol] 4.3 g/dL Normal 3.5-5.0 [facility] Comment on above: Performed By: #### L 501.2300, L100.0100, L500.4050 ####[facility] [address] [place], [address] Albumin/Globulin [Mass ratio] 1.6 {ratio} Normal 0.9-2.4 [facility] Comment on above: Performed By: #### L 501.2300, L100.0100, L500.4050 ####[facility] [address] [place], [address] ALK PHOS 78 U/L Normal 35-104 [facility] Comment on above: Performed By: #### L 501.2300, L100.0100, L500.4050 ####[facility] [address] [place], [address] ALT [Catalytic activity/Vol] 9 U/L Normal <=34 [facility] Comment on above: Performed By: #### L 501.2300, L100.0100, L500.4050 ####[facility] [address] [place], [address] AST [Catalytic activity/Vol] 14 U/L Normal <=31 [facility] Comment on above: Performed By: #### L 501.2300, L100.0100, L500.4050 ####[facility] [address] [place], [address] Bilirubin [Mass/Vol] 0.56 mg/dL Normal 0.00-1.30 [facility] Comment on above: Performed By: #### L 501.2300, L100.0100, L500.4050 ####[facility] [address] [place], [address] BUN/CRE 14.6 RATIO Normal 10-20 [facility] Comment on above: Performed By: #### L 501.2300, L100.0100, L500.4050 ####[facility] [address] [place], [address] Calcium [Mass/Vol] 9.3 mg/dL Normal 7.6-11.0 [facility] Comment on above: Performed By: #### L 501.2300, L100.0100, L500.4050 ####[facility] [address] [place], [address] Chloride [Moles/Vol] 100 mmol/L Normal 98-108 [facility] Comment on above: Performed By: #### L 501.2300, L100.0100, L500.4050 ####[facility] [address] [place], [address] CO2 [Moles/Vol] 19.3 mmol/L Low 21.0-32.0 [facility] Comment on above: Performed By: #### L 501.2300, L100.0100, L500.4050 ####[facility] [address] [place], [address] Creatinine [Mass/Vol] 0.75 mg/dL Normal 0.70-1.20 [facility] Comment on above: Performed By: #### L 501.2300, L100.0100, L500.4050 ####[facility] [address] [place], [address] GAP 13 Normal 5-15 [facility] Comment on above: Performed By: #### L 501.2300, L100.0100, L500.4050 ####[facility] [address] [place], [address] GFR/1.73 sq M.predicted among non-blacks MDRD (S/P/Bld) [Vol rate/Area] 110 mL/min/{1.73_m2} Normal >60 [facility] Comment on above: Result Comment: mL/m in/1.73m2 CKD-EPI Creatinine Equation (2020) Performed By: #### L 501.2300, L100.0100, L500.4050 ####[facility] [address] [place], [address] Globulin (S) [Mass/Vol] 2.7 g/dL Normal 2.2-4.2 [facility] Comment on above: Performed By: #### L 501.2300, L100.0100, L500.4050 ####[facility] [address] [place], [address] Glucose [Mass/Vol] 443 mg/dL High 70-99 [facility] Comment on above: Performed By: #### L 501.2300, L100.0100, L500.4050 ####[facility] [address] [place], [address] Potassium [Moles/Vol] 4.5 mmol/L Normal 3.3-5.1 [facility] Comment on above: Performed By: #### L 501.2300, L100.0100, L500.4050 ####[facility] [address] [place], [address] Sodium [Moles/Vol] 133 mmol/L Normal 133-145 [facility] Comment on above: Performed By: #### L 501.2300, L100.0100, L500.4050 ####[facility] [address] [place], [address] T PROT 7.0 g/dL Normal 5.9-8.4 [facility] Comment on above: Performed By: #### L 501.2300, L100.0100, L500.4050 ####[facility] [address] [place], [address] Urea nitrogen [Mass/Vol] 11 mg/dL Normal 4-19 [facility] Comment on above: Performed By: #### L 501.2300, L100.0100, L500.4050 ####[facility] [address] [place], [address] Phosphoruson 12-25-2024 Phosphate [Mass/Vol] 2.9 mg/dL Normal 2.7-4.5 [facility] Comment on above: Performed By: #### L 501.2300, L100.0100, L500.4050 ####[facility] [address] [place], [address] Basic Metabolic Profile (BMP )on 12-16-2024 BUN/CRE 10.1 RATIO Normal 10-20 [facility] Comment on above: Performed By: #### L 500.2500, L100.0100 ####[facility] [address] [place], [address] Calcium [Mass/Vol] 8.4 mg/dL Normal 7.6-11.0 [facility] Comment on above: Performed By: #### L 500.2500, L100.0100 ####[facility] [address] [place], [address] Chloride [Moles/Vol] 107 mmol/L Normal 98-108 [facility] Comment on above: Performed By: #### L 500.2500, L100.0100 ####[facility] [address] [place], [address] CO2 [Moles/Vol] 19.2 mmol/L Low 21.0-32.0 [facility] Comment on above: Performed By: #### L 500.2500, L100.0100 ####[facility] [address] [place], [address] Creatinine [Mass/Vol] 0.68 mg/dL Low 0.70-1.20 [facility] Comment on above: Performed By: #### L 500.2500, L100.0100 ####[facility] [address] [place], [address] ECRCL 126.42 ml/min Normal 50-250 [facility] Comment on above: Performed By: #### L 500.2500, L100.0100 ####[facility] [address] [place], [address] GAP 11 Normal 5-15 [facility] Comment on above: Performed By: #### L 500.2500, L100.0100 ####[facility] [address] [place], [address] GFR/1.73 sq M.predicted among non-blacks MDRD (S/P/Bld) [Vol rate/Area] 120 mL/min/{1.73_m2} Normal >60 [facility] Comment on above: Result Comment: mL/m in/1.73m2 CKD-EPI Creatinine Equation (2020) Performed By: #### L 500.2500, L100.0100 ####[facility] [address] [place], [address] Glucose [Mass/Vol] 203 mg/dL High 70-99 [facility] Comment on above: Performed By: #### L 500.2500, L100.0100 ####[facility] [address] [place], [address] Potassium [Moles/Vol] 4.4 mmol/L Normal 3.3-5.1 [facility] Comment on above: Result Comment: Hemo lysis present, Results??could be affected.?? Performed By: #### L 500.2500, L100.0100 ####[facility] [address] [place], [address] Sodium [Moles/Vol] 137 mmol/L Normal 133-145 [facility] Comment on above: Performed By: #### L 500.2500, L100.0100 ####[facility] [address] [place], [address] Urea nitrogen [Mass/Vol] 7 mg/dL Normal 4-19 [facility] Comment on above: Performed By: #### L 500.2500, L100.0100 ####[facility] [address] [place], [address] Bedside Glucoseon 12-16-2024 FINGERSTICK GLU 214 mg/dL High 74-106 [facility] Comment on above: Result Comment: EDGAR GEMENT OF PATIENT CARE PER NURSING PROTOCOL Performed By: #### L 501.080 ####[facility] [address] [place], [address] FINGERSTICK GLU 227 mg/dL High 74-106 [facility] Comment on above: Result Comment: EDGAR GEMENT OF PATIENT CARE PER NURSING PROTOCOL Performed By: #### L 501.080 ####[facility] [address] [place], [address] FINGERSTICK GLU 180 mg/dL High 74-106 [facility] Comment on above: Result Comment: EDGAR GEMENT OF PATIENT CARE PER NURSING PROTOCOL Performed By: #### L 501.080 ####[facility] [address] [place], [address] CBC W/Diff, Automatedon 04- Absolute Lymph 2.03 X10 3/uL Normal 0.83-4.51 [facility] Comment on above: Performed By: #### L 500.2500, L100.0100 ####[facility] [address] [place], [address] Absolute Neut 14.1 X10 3/uL High 2.0-7.7 [facility] Comment on above: Performed By: #### L 500.2500, L100.0100 ####[facility] [address] [place], [address] Basophils/100 WBC (Bld) 0.3 % Normal 0-1 [facility] Comment on above: Performed By: #### L 500.2500, L100.0100 ####[facility] [address] [place], [address] Eosinophils/100 WBC (Bld) 0.1 % Normal 0-5 [facility] Comment on above: Performed By: #### L 500.2500, L100.0100 ####[facility] [address] [place], [address] Erythrocyte distribution width (RBC) [Ratio] 13.3 % Normal 11.6-14.6 [facility] Comment on above: Performed By: #### L 500.2500, L100.0100 ####[facility] [address] [place], [address] Hematocrit (Bld) [Volume fraction] 36.8 % Low 37-47 [facility] Comment on above: Performed By: #### L 500.2500, L100.0100 ####[facility] [address] [place], [address] Hemoglobin (Bld) [Mass/Vol] 12.4 g/dL Normal 12.0-15.0 [facility] Comment on above: Performed By: #### L 500.2500, L100.0100 ####[facility] [address] [place], [address] IG% 0.800 Normal 0.0-0.9 [facility] Comment on above: Result Comment: IG% - Immature Granulocytes (promyelocytes, myelocytes andmetamyelocytes) > 1% indicates that a LEFT SHIFT is Present. Performed By: #### L 500.2500, L100.0100 ####[facility] [address] [place], [address] Lymphocytes/100 WBC (Bld) 11.8 % Low 19-41 [facility] Comment on above: Performed By: #### L 500.2500, L100.0100 ####[facility] [address] [place], [address] MCH (RBC) [Entitic mass] 29.5 pg Normal 27.0-32.0 [facility] Comment on above: Performed By: #### L 500.2500, L100.0100 ####[facility] [address] [place], [address] MCHC (RBC) [Mass/Vol] 33.7 g/dL Normal 32-36 [facility] Comment on above: Performed By: #### L 500.2500, L100.0100 ####[facility] [address] [place], [address] MCV (RBC) [Entitic vol] 87.4 fL Normal 81-99 [facility] Comment on above: Performed By: #### L 500.2500, L100.0100 ####[facility] [address] [place], [address] Monocytes/100 WBC (Bld) 5.0 % Normal 0-10 [facility] Comment on above: Performed By: #### L 500.2500, L100.0100 ####[facility] [address] [place], [address] Neutrophils/100 WBC (Bld) 82.0 % High 47-70 [facility] Comment on above: Performed By: #### L 500.2500, L100.0100 ####[facility] [address] [place], [address] Nucleated RBC (Bld) [#/Vol] 0 10*3/uL Normal 0-5 [facility] Comment on above: Performed By: #### L 500.2500, L100.0100 ####[facility] [address] [place], [address] Platelet mean volume (Bld) [Entitic vol] 12.4 fL High 6.2-12.0 [facility] Comment on above: Performed By: #### L 500.2500, L100.0100 ####[facility] [address] [place], [address] Platelets (Bld) [#/Vol] 165 10*3/uL Normal 150-450 [facility] Comment on above: Performed By: #### L 500.2500, L100.0100 ####[facility] [address] [place], [address] RBC (Bld) [#/Vol] 4.21 10*6/uL Normal 4.2-5.4 [facility] Comment on above: Performed By: #### L 500.2500, L100.0100 ####[facility] [address] [place], [address] RDW SD 42.4 fl Normal 35.1-43.9 [facility] Comment on above: Performed By: #### L 500.2500, L100.0100 ####[facility] [address] [place], [address] WBC (Bld) [#/Vol] 17.1 10*3/uL High 4.4-11.0 [facility] Comment on above: Performed By: #### L 500.2500, L100.0100 ####[facility] [address] [place], [address] Discharge Instructionon 11-27 Discharge Instruction Normal [facility] Basic Metabolic Profile (BMP )on 12-15-2024 BUN/CRE 19.3 RATIO Normal 10-20 [facility] Comment on above: Performed By: #### L 500.2500, L100.0500 ####[facility] [address] [place], [address] Calcium [Mass/Vol] 7.9 mg/dL Normal 7.6-11.0 [facility] Comment on above: Performed By: #### L 500.2500, L100.0500 ####[facility] [address] [place], [address] Chloride [Moles/Vol] 106 mmol/L Normal 98-108 [facility] Comment on above: Performed By: #### L 500.2500, L100.0500 ####[facility] [address] [place], [address] CO2 [Moles/Vol] 14.3 mmol/L Low 21.0-32.0 [facility] Comment on above: Performed By: #### L 500.2500, L100.0500 ####[facility] [address] [place], [address] Creatinine [Mass/Vol] 0.56 mg/dL Low 0.70-1.20 [facility] Comment on above: Performed By: #### L 500.2500, L100.0500 ####[facility] [address] [place], [address] ECRCL 153.51 ml/min Normal 50-250 [facility] Comment on above: Performed By: #### L 500.2500, L100.0500 ####[facility] [address] [place], [address] GAP 17 High 5-15 [facility] Comment on above: Performed By: #### L 500.2500, L100.0500 ####[facility] [address] [place], [address] GFR/1.73 sq M.predicted among non-blacks MDRD (S/P/Bld) [Vol rate/Area] 126 mL/min/{1.73_m2} Normal >60 [facility] Comment on above: Result Comment: mL/m in/1.73m2 CKD-EPI Creatinine Equation (2020) Performed By: #### L 500.2500, L100.0500 ####[facility] [address] [place], [address] Glucose [Mass/Vol] 40 mg/dL Invalid Interpretation Code 70-99 [facility] Comment on above: Result Comment: Crit ical Result(s) Called at: 0709 by:??ROSLYN MACK Results read back by same. Performed By: #### L 500.2500, L100.0500 ####[facility] [address] [place], [address] Potassium [Moles/Vol] 3.1 mmol/L Low 3.3-5.1 [facility] Comment on above: Performed By: #### L 500.2500, L100.0500 ####[facility] [address] [place], [address] Sodium [Moles/Vol] 138 mmol/L Normal 133-145 [facility] Comment on above: Performed By: #### L 500.2500, L100.0500 ####[facility] [address] [place], [address] Urea nitrogen [Mass/Vol] 11 mg/dL Normal 4-19 [facility] Comment on above: Performed By: #### L 500.2500, L100.0500 ####[facility] [address] [place], [address] Bedside Glucoseon 12-15-2024 FINGERSTICK GLU 260 mg/dL High -106 [facility] Comment on above: Result Comment: EDGAR GEMENT OF PATIENT CARE PER NURSING PROTOCOL Performed By: #### L 501.080 ####[facility] [address] [place], [address] FINGERSTICK GLU 307 mg/dL High [facility]106 [facility] Comment on above: Result Comment: EDGAR GEMENT OF PATIENT CARE PER NURSING PROTOCOL Performed By: #### L 501.080 ####[facility] [address] [place], [address] FINGERSTICK GLU 204 mg/dL High [address] [place] [address] Comment on above: Result Comment: EDGAR GEMENT OF PATIENT CARE PER NURSING PROTOCOL Performed By: #### L 501.080 ####[facility] [address] [place], [address] FINGERSTICK GLU 77 mg/dL Normal -[address] [place] [address] Comment on above: Result Comment: EDGAR GEMENT OF PATIENT CARE PER NURSING PROTOCOL Performed By: #### L 501.080 ####[facility] [address] [place], [address] FINGERSTICK GLU 34 mg/dL Invalid Interpretation Code -[address] [place] [address] Comment on above: Result Comment: EDGAR GEMENT OF PATIENT CARE PER NURSING PROTOCOL Performed By: #### L 501.080 ####[facility] [address] [place], [address] FINGERSTICK GLU 109 mg/dL High [address] [place] [address] Comment on above: Result Comment: EDGAR GEMENT OF PATIENT CARE PER NURSING PROTOCOL Performed By: #### L 501.080 ####[facility] [address] [place], [address] CBC-Complete Blood Cnt No Di ffon 12-15-2024 Erythrocyte distribution width (RBC) [Ratio] 13.1 % Normal 11.6-14.6 [facility] Comment on above: Performed By: #### L 500.2500, L100.0500 ####[facility] [address] [place], [address] Hematocrit (Bld) [Volume fraction] 36.0 % Low 37-47 [facility] Comment on above: Performed By: #### L 500.2500, L100.0500 ####[facility] [address] [place], [address] Hemoglobin (Bld) [Mass/Vol] 12.2 g/dL Normal 12.0-15.0 [facility] Comment on above: Performed By: #### L 500.2500, L100.0500 ####[facility] [address] [place], [address] MCH (RBC) [Entitic mass] 30.1 pg Normal 27.0-32.0 [facility] Comment on above: Performed By: #### L 500.2500, L100.0500 ####[facility] [address] [place], [address] MCHC (RBC) [Mass/Vol] 33.9 g/dL Normal 32-36 [facility] Comment on above: Performed By: #### L 500.2500, L100.0500 ####[facility] [address] [place], [address] MCV (RBC) [Entitic vol] 88.9 fL Normal 81-99 [facility] Comment on above: Performed By: #### L 500.2500, L100.0500 ####[facility] [address] [place], [address] Platelet mean volume (Bld) [Entitic vol] 12.9 fL High 6.2-12.0 [facility] Comment on above: Performed By: #### L 500.2500, L100.0500 ####[facility] [address] [place], [address] Platelets (Bld) [#/Vol] 145 10*3/uL Low 150-450 [facility] Comment on above: Performed By: #### L 500.2500, L100.0500 ####[facility] [address] [place], [address] RBC (Bld) [#/Vol] 4.05 10*6/uL Low 4.2-5.4 [facility] Comment on above: Performed By: #### L 500.2500, L100.0500 ####[facility] [address] [place], [address] RDW SD 42.8 fl Normal 35.1-43.9 [facility] Comment on above: Performed By: #### L 500.2500, L100.0500 ####[facility] [address] [place], [address] WBC (Bld) [#/Vol] 16.4 10*3/uL High 4.4-11.0 [facility] Comment on above: Performed By: #### L 500.2500, L100.0500 ####[facility] [address] [place], [address] Basic Metabolic Profile (BMP )on 12-14-2024 BUN/CRE 17.1 RATIO Normal 10-20 [facility] Comment on above: Performed By: #### L 500.2500 ####[facility] [address] [place], [address] Calcium [Mass/Vol] 7.7 mg/dL Normal 7.6-11.0 [facility] Comment on above: Performed By: #### L 500.2500 ####[facility] [address] [place], [address] Chloride [Moles/Vol] 108 mmol/L Normal 98-108 [facility] Comment on above: Performed By: #### L 500.2500 ####[facility] [address] [place], [address] CO2 [Moles/Vol] 15.3 mmol/L Low 21.0-32.0 [facility] Comment on above: Performed By: #### L 500.2500 ####[facility] [address] [place], [address] Creatinine [Mass/Vol] 0.67 mg/dL Low 0.70-1.20 [facility] Comment on above: Performed By: #### L 500.2500 ####[facility] [address] [place], [address] ECRCL 138.78 ml/min Normal 50-250 [facility] Comment on above: Performed By: #### L 500.2500 ####[facility] [address] [place], [address] GAP 15 Normal 5-15 [facility] Comment on above: Performed By: #### L 500.2500 ####[facility] [address] [place], [address] GFR/1.73 sq M.predicted among non-blacks MDRD (S/P/Bld) [Vol rate/Area] 121 mL/min/{1.73_m2} Normal >60 [facility] Comment on above: Result Comment: mL/m in/1.73m2 CKD-EPI Creatinine Equation (2020) Performed By: #### L 500.2500 ####[facility] [address] [place], [address] Glucose [Mass/Vol] 180 mg/dL High 70-99 [facility] Comment on above: Performed By: #### L 500.2500 ####[facility] [address] [place], [address] Potassium [Moles/Vol] 3.3 mmol/L Normal 3.3-5.1 [facility] Comment on above: Performed By: #### L 500.2500 ####[facility] [address] [place], [address] Sodium [Moles/Vol] 138 mmol/L Normal 133-145 [facility] Comment on above: Performed By: #### L 500.2500 ####[facility] [address] [place], [address] Urea nitrogen [Mass/Vol] 11 mg/dL Normal 4-19 [facility] Comment on above: Performed By: #### L 500.2500 ####[facility] [address] [place], [address] Bedside Glucoseon 12-14-2024 FINGERSTICK GLU 186 mg/dL High 74-106 [facility] Comment on above: Result Comment: EDGAR GEMENT OF PATIENT CARE PER NURSING PROTOCOL Performed By: #### L 501.080 ####[facility] [address] [place], [address] FINGERSTICK GLU 291 mg/dL High 74-106 [facility] Comment on above: Result Comment: EDGAR GEMENT OF PATIENT CARE PER NURSING PROTOCOL Performed By: #### L 501.080 ####[facility] [address] [place], [address] FINGERSTICK GLU 352 mg/dL High 74-106 [facility] Comment on above: Result Comment: EDGAR GEMENT OF PATIENT CARE PER NURSING PROTOCOL Performed By: #### L 501.080 ####[facility] [address] [place], [address] Beta-Hydroxbytyrateon 2024 BETA-HYDROXYBUT 1.9 mmol/L Normal 0.0-0.3 [facility] Comment on above: Performed By: #### L 700.6800, L501.2450, L500.4050, L501.6901 ####[facility] [address] [place], [address] CBC W/Diff, Automatedon 11-26 Absolute Lymph 2.40 X10 3/uL Normal 0.83-4.51 [facility] Comment on above: Performed By: #### L 100.0100 ####[facility] [address] [place], [address] Absolute Neut 12.5 X10 3/uL High 2.0-7.7 [facility] Comment on above: Performed By: #### L 100.0100 ####[facility] [address] [place], [address] Basophils/100 WBC (Bld) 0.4 % Normal 0-1 [facility] Comment on above: Performed By: #### L 100.0100 ####[facility] [address] [place], [address] Eosinophils/100 WBC (Bld) 0.1 % Normal 0-5 [facility] Comment on above: Performed By: #### L 100.0100 ####[facility] [address] [place], [address] Erythrocyte distribution width (RBC) [Ratio] 12.9 % Normal 11.6-14.6 [facility] Comment on above: Performed By: #### L 100.0100 ####[facility] [address] [place], [address] Hematocrit (Bld) [Volume fraction] 39.9 % Normal 37-47 [facility] Comment on above: Performed By: #### L 100.0100 ####[facility] [address] [place], [address] Hemoglobin (Bld) [Mass/Vol] 13.7 g/dL Normal 12.0-15.0 [facility] Comment on above: Performed By: #### L 100.0100 ####[facility] [address] [place], [address] IG% 0.800 Normal 0.0-0.9 [facility] Comment on above: Result Comment: IG% - Immature Granulocytes (promyelocytes, myelocytes andmetamyelocytes) > 1% indicates that a LEFT SHIFT is Present. Performed By: #### L 100.0100 ####[facility] [address] [place], [address] Lymphocytes/100 WBC (Bld) 15.1 % Low 19-41 [facility] Comment on above: Performed By: #### L 100.0100 ####[facility] [address] [place], [address] MCH (RBC) [Entitic mass] 29.7 pg Normal 27.0-32.0 [facility] Comment on above: Performed By: #### L 100.0100 ####[facility] [address] [place], [address] MCHC (RBC) [Mass/Vol] 34.3 g/dL Normal 32-36 [facility] Comment on above: Performed By: #### L 100.0100 ####[facility] [address] [place], [address] MCV (RBC) [Entitic vol] 86.4 fL Normal 81-99 [facility] Comment on above: Performed By: #### L 100.0100 ####[facility] [address] [place], [address] Monocytes/100 WBC (Bld) 4.9 % Normal 0-10 [facility] Comment on above: Performed By: #### L 100.0100 ####[facility] [address] [place], [address] Neutrophils/100 WBC (Bld) 78.7 % High 47-70 [facility] Comment on above: Performed By: #### L 100.0100 ####[facility] [address] [place], [address] Nucleated RBC (Bld) [#/Vol] 0 10*3/uL Normal 0-5 [facility] Comment on above: Performed By: #### L 100.0100 ####[facility] [address] [place], [address] Platelet mean volume (Bld) [Entitic vol] 12.6 fL High 6.2-12.0 [facility] Comment on above: Performed By: #### L 100.0100 ####[facility] [address] [place], [address] Platelets (Bld) [#/Vol] 159 10*3/uL Normal 150-450 [facility] Comment on above: Performed By: #### L 100.0100 ####[facility] [address] [place], [address] RBC (Bld) [#/Vol] 4.62 10*6/uL Normal 4.2-5.4 [facility] Comment on above: Performed By: #### L 100.0100 ####[facility] [address] [place], [address] RDW SD 40.1 fl Normal 35.1-43.9 [facility] Comment on above: Performed By: #### L 100.0100 ####[facility] [address] [place], [address] WBC (Bld) [#/Vol] 15.9 10*3/uL High 4.4-11.0 [facility] Comment on above: Performed By: #### L 100.0100 ####[facility] [address] [place], [address] Comprehensive Metabolic Prof ilon 12-14-2024 Albumin [Mass/Vol] 4.2 g/dL Normal 3.5-5.0 [facility] Comment on above: Performed By: #### L 700.6800, L501.2450, L500.4050, L501.6901 ####[facility] [address] [place], [address] Albumin/Globulin [Mass ratio] 1.8 {ratio} Normal 0.9-2.4 [facility] Comment on above: Performed By: #### L 700.6800, L501.2450, L500.4050, L501.6901 ####[facility] [address] [place], [address] ALK PHOS 76 U/L Normal 35-104 [facility] Comment on above: Performed By: #### L 700.6800, L501.2450, L500.4050, L501.6901 ####[facility] [address] [place], [address] ALT [Catalytic activity/Vol] 11 U/L Normal <=34 [facility] Comment on above: Performed By: #### L 700.6800, L501.2450, L500.4050, L501.6901 ####[facility] [address] [place], [address] AST [Catalytic activity/Vol] 16 U/L Normal <=31 [facility] Comment on above: Performed By: #### L 700.6800, L501.2450, L500.4050, L501.6901 ####[facility] [address] [place], [address] Bilirubin [Mass/Vol] 0.92 mg/dL Normal 0.00-1.30 [facility] Comment on above: Performed By: #### L 700.6800, L501.2450, L500.4050, L501.6901 ####[facility] [address] [place], [address] BUN/CRE 18.2 RATIO Normal 10-20 [facility] Comment on above: Performed By: #### L 700.6800, L501.2450, L500.4050, L501.6901 ####[facility] [address] [place], [address] Calcium [Mass/Vol] 8.2 mg/dL Normal 7.6-11.0 [facility] Comment on above: Performed By: #### L 700.6800, L501.2450, L500.4050, L501.6901 ####[facility] [address] [place], [address] Chloride [Moles/Vol] 104 mmol/L Normal 98-108 [facility] Comment on above: Performed By: #### L 700.6800, L501.2450, L500.4050, L501.6901 ####[facility] [address] [place], [address] CO2 [Moles/Vol] 15.1 mmol/L Low 21.0-32.0 [facility] Comment on above: Performed By: #### L 700.6800, L501.2450, L500.4050, L501.6901 ####[facility] [address] [place], [address] Creatinine [Mass/Vol] 0.74 mg/dL Normal 0.70-1.20 [facility] Comment on above: Performed By: #### L 700.6800, L501.2450, L500.4050, L501.6901 ####[facility] [address] [place], [address] ECRCL 125.65 ml/min Normal 50-250 [facility] Comment on above: Performed By: #### L 700.6800, L501.2450, L500.4050, L501.6901 ####[facility] [address] [place], [address] GAP 17 High 5-15 [facility] Comment on above: Performed By: #### L 700.6800, L501.2450, L500.4050, L501.6901 ####[facility] [address] [place], [address] GFR/1.73 sq M.predicted among non-blacks MDRD (S/P/Bld) [Vol rate/Area] 112 mL/min/{1.73_m2} Normal >60 [facility] Comment on above: Result Comment: mL/m in/1.73m2 CKD-EPI Creatinine Equation (2020) Performed By: #### L 700.6800, L501.2450, L500.4050, L501.6901 ####[facility] [address] [place], [address] Globulin (S) [Mass/Vol] 2.4 g/dL Normal 2.2-4.2 [facility] Comment on above: Performed By: #### L 700.6800, L501.2450, L500.4050, L501.6901 ####[facility] [address] [place], [address] Glucose [Mass/Vol] 329 mg/dL High 70-99 [facility] Comment on above: Performed By: #### L 700.6800, L501.2450, L500.4050, L501.6901 ####[facility] [address] [place], [address] Potassium [Moles/Vol] 3.6 mmol/L Normal 3.3-5.1 [facility] Comment on above: Performed By: #### L 700.6800, L501.2450, L500.4050, L501.6901 ####[facility] [address] [place], [address] Sodium [Moles/Vol] 136 mmol/L Normal 133-145 [facility] Comment on above: Performed By: #### L 700.6800, L501.2450, L500.4050, L501.6901 ####[facility] [address] [place], [address] T PROT 6.5 g/dL Normal 5.9-8.4 [facility] Comment on above: Performed By: #### L 700.6800, L501.2450, L500.4050, L501.6901 ####[facility] [address] [place], [address] Urea nitrogen [Mass/Vol] 13 mg/dL Normal - [facility] Comment on above: Performed By: #### L 700.6800, L501.2450, L500.4050, L501.6901 ####[facility] [address] [place], [address] Emergency Department Summary on 12-14-2024 Emergency Department Summary Normal [facility] H AND P Exam - Hospitaliston 12-14-2024 H&P Exam - Hospitalist Normal [facility] Lipaseon 12-14-2024 Lipase [Catalytic activity/Vol] 13 U/L Normal 13-75 [facility] Comment on above: Result Comment: Pleselene schmitz note:LIPASE revised reference range effective 22.New Lipase methodology. Expected to produce lower valuesthan the previous assay method.NEW Reference Range: 13 - 75 U/L Performed By: #### L 700.6800, L501.2450, L500.4050, L501.6901 ####[facility] [address] [place], [address] Magnesiumon 12-14-2024 Magnesium [Mass/Vol] 1.5 mg/dL Normal 1.5-2.2 [facility] Comment on above: Performed By: #### L 501.5200, L501.2300 ####[facility] [address] [place], [address] Phosphoruson 12-14-2024 Phosphate [Mass/Vol] 1.4 mg/dL Invalid Interpretation Code 2.7-4.5 [facility] Comment on above: Performed By: #### L 501.5200, L501.2300 ####[facility] [address] [place], [address] ,Serum,hCG Quali.on 12-14-2024 HCG, SERUM QUAL Negative Normal [facility] Comment on above: Performed By: #### L 700.6800, L501.2450, L500.4050, L501.6901 ####[facility] [address] [place], [address] Urinalysis, Completeon 12-14 EPI,SQUAMOUS 0-5 SEEN Normal 5-10 [facility] Comment on above: Order Comment: CLEAN CATCH Performed By: #### L 400.0001 ####[facility] [address] [place], [address] BACTERIA 0 SEEN Normal None Seen [facility] Comment on above: Order Comment: CLEAN CATCH Performed By: #### L 400.0001 ####[facility] [address] [place], [address] Mucus Ql (Urine sed) 0 SEEN Normal [facility] Comment on above: Order Comment: CLEAN CATCH Performed By: #### L 400.0001 ####[facility] [address] [place], [address] RBC 0 SEEN Normal 0-5 [facility] Comment on above: Order Comment: CLEAN CATCH Performed By: #### L 400.0001 ####[facility] [address] [place], [address] WBC 0 SEEN Normal 0-5 [facility] Comment on above: Order Comment: CLEAN CATCH Performed By: #### L 400.0001 ####[facility] [address] [place], [address] Venous Blood Gason 5 Blood Gas Type ISABELLE Normal [facility] Comment on above: Performed By: #### L 9000.0810 ####[facility] [address] [place], [address] CO2 [Moles/Vol] 16 mmol/L Low 23-33 [facility] Comment on above: Performed By: #### L 9000.0810 ####[facility] [address] [place], [address] HCO3 (Bld) [Moles/Vol] 15 mmol/L Low 22-26 [facility] Comment on above: Performed By: #### L 9000.0810 ####[facility] [address] [place], [address] O2 Delivery Dev Room Air [facility] Comment on above: Performed By: #### L 9000.0810 ####[facility] [address] [place], [address] SITE Not entered [facility] Comment on above: Performed By: #### L 9000.0810 ####[facility] [address] [place], [address] VBG BE -9 mmol/L Low -1.0-3.5 [facility] Comment on above: Performed By: #### L 9000.0810 ####[facility] [address] [place], [address] VBG pCO2 21.7 mmHg Low 41-51 [facility] Comment on above: Performed By: #### L 9000.0810 ####[facility] [address] [place], [address] VBG pH 7.45 High 7.32-7.42 [facility] Comment on above: Performed By: #### L 9000.0810 ####[facility] [address] [place], [address] VBG PO2 43 mmHg High 25-40 [facility] Comment on above: Performed By: #### L 9000.0810 ####[facility] [address] [place], [address] VBG SO2 83 High 50-70 [facility] Comment on above: Performed By: #### L 9000.0810 ####[facility] [address] [place], [address] CBC W/Diff, Automatedon PLT EST ADEQUATE Normal ADEQ [facility] Comment on above: Performed By: #### L 506.1001, L503.6030, L509.6001, L500.4050, L501.9985, L100.0100, L501.9520 ####[facility] [address] [place], [address] Comprehensive Metabolic Prof ilon 11-28-2024 Albumin [Mass/Vol] 4.1 g/dL Normal 3.5-5.0 [facility] Comment on above: Performed By: #### L 506.1001, L503.6030, L509.6001, L500.4050, L501.9985, L100.0100, L501.9520 ####[facility] [address] [place], [address] Albumin/Globulin [Mass ratio] 1.8 {ratio} Normal 0.9-2.4 [facility] Comment on above: Performed By: #### L 506.1001, L503.6030, L509.6001, L500.4050, L501.9985, L100.0100, L501.9520 ####[facility] [address] [place], [address] ALK PHOS 68 U/L Normal 35-104 [facility] Comment on above: Performed By: #### L 506.1001, L503.6030, L509.6001, L500.4050, L501.9985, L100.0100, L501.9520 ####[facility] [address] [place], [address] ALT [Catalytic activity/Vol] 6 U/L Normal <=34 [facility] Comment on above: Performed By: #### L 506.1001, L503.6030, L509.6001, L500.4050, L501.9985, L100.0100, L501.9520 ####[facility] [address] [place], [address] AST [Catalytic activity/Vol] 16 U/L Normal <=31 [facility] Comment on above: Performed By: #### L 506.1001, L503.6030, L509.6001, L500.4050, L501.9985, L100.0100, L501.9520 ####[facility] [address] [place], [address] Bilirubin [Mass/Vol] 0.29 mg/dL Normal 0.00-1.30 [facility] Comment on above: Performed By: #### L 506.1001, L503.6030, L509.6001, L500.4050, L501.9985, L100.0100, L501.9520 ####[facility] [address] [place], [address] BUN/CRE 19.9 RATIO Normal 10-20 [facility] Comment on above: Performed By: #### L 506.1001, L503.6030, L509.6001, L500.4050, L501.9985, L100.0100, L501.9520 ####[facility] [address] [place], [address] Calcium [Mass/Vol] 9.1 mg/dL Normal 7.6-11.0 [facility] Comment on above: Performed By: #### L 506.1001, L503.6030, L509.6001, L500.4050, L501.9985, L100.0100, L501.9520 ####[facility] [address] [place], [address] Chloride [Moles/Vol] 107 mmol/L Normal 98-108 [facility] Comment on above: Performed By: #### L 506.1001, L503.6030, L509.6001, L500.4050, L501.9985, L100.0100, L501.9520 ####[facility] [address] [place], [address] CO2 [Moles/Vol] 20.4 mmol/L Low 21.0-32.0 [facility] Comment on above: Performed By: #### L 506.1001, L503.6030, L509.6001, L500.4050, L501.9985, L100.0100, L501.9520 ####[facility] [address] [place], [address] Creatinine [Mass/Vol] 0.59 mg/dL Low 0.70-1.20 [facility] Comment on above: Performed By: #### L 506.1001, L503.6030, L509.6001, L500.4050, L501.9985, L100.0100, L501.9520 ####[facility] [address] [place], [address] GAP 11 Normal 5-15 [facility] Comment on above: Performed By: #### L 506.1001, L503.6030, L509.6001, L500.4050, L501.9985, L100.0100, L501.9520 ####[facility] [address] [place], [address] GFR/1.73 sq M.predicted among non-blacks MDRD (S/P/Bld) [Vol rate/Area] 124 mL/min/{1.73_m2} Normal >60 [facility] Comment on above: Result Comment: mL/m in/1.73m2 CKD-EPI Creatinine Equation (2020) Performed By: #### L 506.1001, L503.6030, L509.6001, L500.4050, L501.9985, L100.0100, L501.9520 ####[facility] [address] [place], [address] Globulin (S) [Mass/Vol] 2.3 g/dL Normal 2.2-4.2 [facility] Comment on above: Performed By: #### L 506.1001, L503.6030, L509.6001, L500.4050, L501.9985, L100.0100, L501.9520 ####[facility] [address] [place], [address] Glucose [Mass/Vol] 222 mg/dL High 70-99 [facility] Comment on above: Performed By: #### L 506.1001, L503.6030, L509.6001, L500.4050, L501.9985, L100.0100, L501.9520 ####[facility] [address] [place], [address] Potassium [Moles/Vol] 4.2 mmol/L Normal 3.3-5.1 [facility] Comment on above: Performed By: #### L 506.1001, L503.6030, L509.6001, L500.4050, L501.9985, L100.0100, L501.9520 ####[facility] [address] [place], [address] Sodium [Moles/Vol] 138 mmol/L Normal 133-145 [facility] Comment on above: Performed By: #### L 506.1001, L503.6030, L509.6001, L500.4050, L501.9985, L100.0100, L501.9520 ####[facility] [address] [place], [address] T PROT 6.4 g/dL Normal 5.9-8.4 [facility] Comment on above: Performed By: #### L 506.1001, L503.6030, L509.6001, L500.4050, L501.9985, L100.0100, L501.9520 ####[facility] [address] [place], [address] Urea nitrogen [Mass/Vol] 12 mg/dL Normal 4-19 [facility] Comment on above: Performed By: #### L 506.1001, L503.6030, L509.6001, L500.4050, L501.9985, L100.0100, L501.9520 ####[facility] [address] [place], [address] Hemoglobin A1con 11-28-2024 HbA1c (Bld) [Mass fraction] 10.1 % Normal <=5.6 [facility] Comment on above: Performed By: #### L 506.1001, L503.6030, L509.6001, L500.4050, L501.9985, L100.0100, L501.9520 ####[facility] [address] [place], [address] Iron+Iron Binding Capacityon 11-28-2024 Iron [Mass/Vol] 71 ug/dL Normal 50-170 [facility] Comment on above: Performed By: #### L 506.1001, L503.6030, L509.6001, L500.4050, L501.9985, L100.0100, L501.9520 ####[facility] [address] [place], [address] IRON SATURATION 28.0 Normal 13-59 [facility] Comment on above: Performed By: #### L 506.1001, L503.6030, L509.6001, L500.4050, L501.9985, L100.0100, L501.9520 ####[facility] [address] [place], [address] TIBC 248 ug/dL Low 250-450 [facility] Comment on above: Performed By: #### L 506.1001, L503.6030, L509.6001, L500.4050, L501.9985, L100.0100, L501.9520 ####[facility] [address] [place], [address] UIBC 177 ug/dL Low 228-428 [facility] Comment on above: Performed By: #### L 506.1001, L503.6030, L509.6001, L500.4050, L501.9985, L100.0100, L501.9520 ####[facility] [address] [place], [address] L509.6001on 11-28-2024 CORTISOL 5.66 ug/dL Low 6.02-18.40 [facility] Comment on above: Performed By: #### L 506.1001, L503.6030, L509.6001, L500.4050, L501.9985, L100.0100, L501.9520 ####[facility] [address] [place], [address] Thyroid Stim Hormone (TSH)on 11-28-2024 TSH 0.451 uIU/mL Normal 0.300-4.200 [facility] Comment on above: Performed By: #### L 506.1001, L503.6030, L509.6001, L500.4050, L501.9985, L100.0100, L501.9520 ####[facility] [address] [place], [address] Vitamin D,25 Hydroxyon 11-28 Vitamin D 25-OH 15.7 ng/mL Low 30-100 [facility] Comment on above: Result Comment: Shira min D StatusDeficiency: <20 ng/mL (50nmol/L)Insufficiency: 20-30 ng/mL (50-75 nmol/L)Sufficiency: 30-100 ng/mL (75-250 nmol/L)Toxicity: >100 ng/mL (>250 nmol/L) Performed By: #### L 506.1001, L503.6030, L509.6001, L500.4050, L501.9985, L100.0100, L501.9520 ####[facility] [address] [place], [address] CNCOon 11-13-2024 CNCO Letter Text Normal [facility] CNOVon 11-11-2024 CNOV Office Visit (GASTSP ) KATHLEEN VILLA ([id number]) 1995 F CHT Date Time Provider Department [...] every 24 hours. 38.7 mL 1 Insulin [place], Disposable, (PEN NEEDLE) 32 gauge x 5/32 [...] no edema RESPIRATORY: No dyspnea : neg RESIDENTIAL FEE APPRAISER: neg The remainder of the review of [...] no hepat (more content not included)... [facility] KATHLEEN VILLA ([id number]) 1995 F CHT Date Time Provider Department 11/11/24 LETICIA HYLTON [facility] During your visit today, we recorded the following information about you: Guero Hammer LPN 11/11/2024 2:03 PM Signed Please let her know that her x-ray demonstrates a significantly large amount of stool throughout the colon. [facility] her to try spoke with patient [...] Units subcutaneously every 24 hours. 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 Normal [facility] XR ABDOMEN 1V SUPINEon 11-11 XR [...] on Nov 11 2024 11:13AM EST [id number] [facility] XR Abdomen Supine and Uprigh ton 11-11-2024 IMPRESSION: Moderate-large colonic stool burden. No dilated bowel. Transcribed Using Voice Recognition Transcribe Date/Time: Nov 11 2024 11:10A Dictated by: TRES EVANS DO This examination was interpreted and the report reviewed and electronically signed by: TRES EVANS DO on Nov 11 2024 11:13AM EST [facility] RADIOLOGY * * *Final Report* [...] abdomen/pelvis. No acute bony abnormality. [facility] RADIOLOGY Provider, Ama Armando [facility] - 11/11/2024 * * *Final Report* [...] DO on Nov 11 2024 11:13AM EST [facility] Radiology Study observation (narrative) [facility] XR Abdomen Supine and Uprigh tOrdered By: [facility] Provider on 11-11-2024 [facility] Basic Metabolic Profile (BMP )on 11-06-2024 BUN/CRE 16.8 RATIO Normal 10-20 [facility] Comment on above: Performed By: #### L 500.2500 ####[facility] [address] [place], [address] Calcium [Mass/Vol] 8.0 mg/dL Normal 7.6-11.0 [facility] Comment on above: Performed By: #### L 500.2500 ####[facility] [address], [address] Chloride [Moles/Vol] 104 mmol/L Normal 98-108 [facility] Comment on above: Performed By: #### L 500.2500 ####[facility] [address] [place], [address] CO2 [Moles/Vol] 21.1 mmol/L Normal 21.0-32.0 [facility] Comment on above: Performed By: #### L 500.2500 ####[facility] [address] [place], [address] Creatinine [Mass/Vol] 0.64 mg/dL Low 0.70-1.20 [facility] Comment on above: Performed By: #### L 500.2500 ####[facility] [address] [place], [address] ECRCL 134.33 ml/min Normal 50-250 [facility] Comment on above: Performed By: #### L 500.2500 ####[facility] [address] [place], [address] GAP 12 Normal 5-15 [facility] Comment on above: Performed By: #### L 500.2500 ####[facility] [address] [place], [address] GFR/1.73 sq M.predicted among non-blacks MDRD (S/P/Bld) [Vol rate/Area] 122 mL/min/{1.73_m2} Normal >60 [facility] Comment on above: Result Comment: mL/m in/1.73m2 CKD-EPI Creatinine Equation (2020) Performed By: #### L 500.2500 ####[facility] [address] [place], [address] Glucose [Mass/Vol] 64 mg/dL Low 70-99 [facility] Comment on above: Performed By: #### L 500.2500 ####[facility] [address] [place], [address] Potassium [Moles/Vol] 3.3 mmol/L Normal 3.3-5.1 [facility] Comment on above: Performed By: #### L 500.2500 ####[facility] [address] [place], [address] Sodium [Moles/Vol] 137 mmol/L Normal 133-145 [facility] Comment on above: Performed By: #### L 500.2500 ####[facility] [address] [place], [address] Urea nitrogen [Mass/Vol] 11 mg/dL Normal 4-19 [facility] Comment on above: Performed By: #### L 500.2500 ####[facility] [address] [place], [address] Bedside Glucoseon 11-06-2024 FINGERSTICK GLU 100 mg/dL Normal 74-106 [facility] Comment on above: Result Comment: EDGAR GEMENT OF PATIENT CARE PER NURSING PROTOCOL Performed By: #### L 501.080 ####[facility] [address] [place], [address] FINGERSTICK GLU 151 mg/dL High 74-106 [facility] Comment on above: Result Comment: EDGAR GEMENT OF PATIENT CARE PER NURSING PROTOCOL Performed By: #### L 501.080 ####[facility] [address] [place], [address] FINGERSTICK GLU 153 mg/dL High 74-106 [facility] Comment on above: Result Comment: EDGAR GEMENT OF PATIENT CARE PER NURSING PROTOCOL Performed By: #### L 501.080 ####[facility] [address] [place], [address] FINGERSTICK GLU 50 mg/dL Low 74-106 [facility] Comment on above: Result Comment: EDGAR GEMENT OF PATIENT CARE PER NURSING PROTOCOL Performed By: #### L 501.080 ####[facility] [address] [place], [address] FINGERSTICK GLU 141 mg/dL High 74-106 [facility] Comment on above: Result Comment: EDGAR GEMENT OF PATIENT CARE PER NURSING PROTOCOL Performed By: #### L 501.080 ####[facility] [address] [place], [address] FINGERSTICK GLU 129 mg/dL High 74-106 [facility] Comment on above: Result Comment: EDGAR HUNG OF PATIENT CARE PER NURSING PROTOCOL Performed By: #### L 501.080 ####[facility] [address] [place], [address] CBC W/Diff, Automatedon 10-26 Absolute Lymph 2.60 X10 3/uL Normal 0.83-4.51 [facility] Comment on above: Performed By: #### L 100.0100 ####[facility] [address] [place], [address] Absolute Neut 7.6 X10 3/uL Normal 2.0-7.7 [facility] Comment on above: Performed By: #### L 100.0100 ####[facility] [address] [place], [address] Basophils/100 WBC (Bld) 0.5 % Normal 0-1 [facility] Comment on above: Performed By: #### L 100.0100 ####[facility] [address] [place], [address] Eosinophils/100 WBC (Bld) 0.4 % Normal 0-5 [facility] Comment on above: Performed By: #### L 100.0100 ####[facility] [address] [place], [address] Erythrocyte distribution width (RBC) [Ratio] 13.7 % Normal 11.6-14.6 [facility] Comment on above: Performed By: #### L 100.0100 ####[facility] [address] [place], [address] Hematocrit (Bld) [Volume fraction] 36.0 % Low 37-47 [facility] Comment on above: Performed By: #### L 100.0100 ####[facility] [address] [place], [address] Hemoglobin (Bld) [Mass/Vol] 12.2 g/dL Normal 12.0-15.0 [facility] Comment on above: Performed By: #### L 100.0100 ####[facility] [address] [place], [address] IG% 1.000 High 0.0-0.9 [facility] Comment on above: Result Comment: IG% - Immature Granulocytes (promyelocytes, myelocytes andmetamyelocytes) > 1% indicates that a LEFT SHIFT is Present. Performed By: #### L 100.0100 ####[facility] [address] [place], [address] Lymphocytes/100 WBC (Bld) 23.4 % Normal 19-41 [facility] Comment on above: Performed By: #### L 100.0100 ####[facility] [address] [place], [address] MCH (RBC) [Entitic mass] 29.7 pg Normal 27.0-32.0 [facility] Comment on above: Performed By: #### L 100.0100 ####[facility] [address] [place], [address] MCHC (RBC) [Mass/Vol] 33.9 g/dL Normal 32-36 [facility] Comment on above: Performed By: #### L 100.0100 ####[facility] [address] [place], [address] MCV (RBC) [Entitic vol] 87.6 fL Normal 81-99 [facility] Comment on above: Performed By: #### L 100.0100 ####[facility] [address] [place], [address] Monocytes/100 WBC (Bld) 6.7 % Normal 0-10 [facility] Comment on above: Performed By: #### L 100.0100 ####[facility] [address] [place], [address] Neutrophils/100 WBC (Bld) 68.0 % Normal 47-70 [facility] Comment on above: Performed By: #### L 100.0100 ####[facility] [address] [place], [address] Nucleated RBC (Bld) [#/Vol] 0 10*3/uL Normal 0-5 [facility] Comment on above: Performed By: #### L 100.0100 ####[facility] [address] [place], [address] Platelet mean volume (Bld) [Entitic vol] 10.8 fL Normal 6.2-12.0 [facility] Comment on above: Performed By: #### L 100.0100 ####[facility] [address] [place], [address] Platelets (Bld) [#/Vol] 188 10*3/uL Normal 150-450 [facility] Comment on above: Performed By: #### L 100.0100 ####[facility] [address] [place], [address] RBC (Bld) [#/Vol] 4.11 10*6/uL Low 4.2-5.4 [facility] Comment on above: Performed By: #### L 100.0100 ####[facility] [address] [place], [address] RDW SD 43.6 fl Normal 35.1-43.9 [facility] Comment on above: Performed By: #### L 100.0100 ####[facility] [address] [place], [address] WBC (Bld) [#/Vol] 11.1 10*3/uL High 4.4-11.0 [facility] Comment on above: Performed By: #### L 100.0100 ####[facility] [address] [place], [address] Comprehensive Metabolic Prof ilon 11-06-2024 Albumin [Mass/Vol] 3.6 g/dL Normal 3.5-5.0 [facility] Comment on above: Order Comment: CMP-T IMED FOR A Q6 BMP Performed By: #### L 501.5200, L501.2300, L500.4050 ####[facility] [address] [place], [address] Albumin/Globulin [Mass ratio] 1.6 {ratio} Normal 0.9-2.4 [facility] Comment on above: Order Comment: CMP-T IMED FOR A Q6 BMP Performed By: #### L 501.5200, L501.2300, L500.4050 ####[facility] [address] [place], [address] ALK PHOS 76 U/L Normal 35-104 [facility] Comment on above: Order Comment: CMP-T IMED FOR A Q6 BMP Performed By: #### L 501.5200, L501.2300, L500.4050 ####[facility] [address] [place], [address] ALT [Catalytic activity/Vol] 14 U/L Normal <=34 [facility] Comment on above: Order Comment: CMP-T IMED FOR A Q6 BMP Performed By: #### L 501.5200, L501.2300, L500.4050 ####[facility] [address] [place], [address] AST [Catalytic activity/Vol] 17 U/L Normal <=31 [facility] Comment on above: Order Comment: CMP-T IMED FOR A Q6 BMP Performed By: #### L 501.5200, L501.2300, L500.4050 ####[facility] [address] [place], [address] Bilirubin [Mass/Vol] 0.91 mg/dL Normal 0.00-1.30 [facility] Comment on above: Order Comment: CMP-T IMED FOR A Q6 BMP Performed By: #### L 501.5200, L501.2300, L500.4050 ####[facility] [address] [place], [address] BUN/CRE 12.2 RATIO Normal 10-20 [facility] Comment on above: Order Comment: CMP-T IMED FOR A Q6 BMP Performed By: #### L 501.5200, L501.2300, L500.4050 ####[facility] [address] [place], [address] Calcium [Mass/Vol] 8.2 mg/dL Normal 7.6-11.0 [facility] Comment on above: Order Comment: CMP-T IMED FOR A Q6 BMP Performed By: #### L 501.5200, L501.2300, L500.4050 ####[facility] [address] [place], [address] Chloride [Moles/Vol] 105 mmol/L Normal 98-108 [facility] Comment on above: Order Comment: CMP-T IMED FOR A Q6 BMP Performed By: #### L 501.5200, L501.2300, L500.4050 ####[facility] [address] [place], [address] CO2 [Moles/Vol] 22.2 mmol/L Normal 21.0-32.0 [facility] Comment on above: Order Comment: CMP-T IMED FOR A Q6 BMP Performed By: #### L 501.5200, L501.2300, L500.4050 ####[facility] [address] [place], [address] Creatinine [Mass/Vol] 0.61 mg/dL Low 0.70-1.20 [facility] Comment on above: Order Comment: CMP-T IMED FOR A Q6 BMP Performed By: #### L 501.5200, L501.2300, L500.4050 ####[facility] [address] [place], [address] ECRCL 140.93 ml/min Normal 50-250 [facility] Comment on above: Order Comment: CMP-T IMED FOR A Q6 BMP Performed By: #### L 501.5200, L501.2300, L500.4050 ####[facility] [address] [place], [address] GAP 11 Normal 5-15 [facility] Comment on above: Order Comment: CMP-T IMED FOR A Q6 BMP Performed By: #### L 501.5200, L501.2300, L500.4050 ####[facility] [address] [place], [address] GFR/1.73 sq M.predicted among non-blacks MDRD (S/P/Bld) [Vol rate/Area] 123 mL/min/{1.73_m2} Normal >60 [facility] Comment on above: Order Comment: CMP-T IMED FOR A Q6 BMP Result Comment: mL/m in/1.73m2 CKD-EPI Creatinine Equation (2020) Performed By: #### L 501.5200, L501.2300, L500.4050 ####[facility] [address] [place], [address] Globulin (S) [Mass/Vol] 2.2 g/dL Normal 2.2-4.2 [facility] Comment on above: Order Comment: CMP-T IMED FOR A Q6 BMP Performed By: #### L 501.5200, L501.2300, L500.4050 ####[facility] [address] [place], [address] Glucose [Mass/Vol] 122 mg/dL High 70-99 [facility] Comment on above: Order Comment: CMP-T IMED FOR A Q6 BMP Performed By: #### L 501.5200, L501.2300, L500.4050 ####[facility] [address] [place], [address] Potassium [Moles/Vol] 3.4 mmol/L Normal 3.3-5.1 [facility] Comment on above: Order Comment: CMP-T IMED FOR A Q6 BMP Performed By: #### L 501.5200, L501.2300, L500.4050 ####[facility] [address] [place], [address] Sodium [Moles/Vol] 138 mmol/L Normal 133-145 [facility] Comment on above: Order Comment: CMP-T IMED FOR A Q6 BMP Performed By: #### L 501.5200, L501.2300, L500.4050 ####[facility] [address] [place], [address] T PROT 5.9 g/dL Normal 5.9-8.4 [facility] Comment on above: Order Comment: CMP-T IMED FOR A Q6 BMP Performed By: #### L 501.5200, L501.2300, L500.4050 ####[facility] [address] [place], [address] Urea nitrogen [Mass/Vol] 7 mg/dL Normal 4-19 [facility] Comment on above: Order Comment: CMP-T IMED FOR A Q6 BMP Performed By: #### L 501.5200, L501.2300, L500.4050 ####[facility] [address] [place], [address] Discharge Instructionon 10-26 Discharge Instruction Normal [facility] Magnesiumon 03-12-2025 Magnesium [Mass/Vol] 2.2 mg/dL Normal 1.5-2.2 [facility] Comment on above: Order Comment: CMP-T IMED FOR A Q6 BMP Performed By: #### L 501.5200, L501.2300, L500.4050 ####[facility] [address] [place], [address] Phosphoruson 11-06-2024 Phosphate [Mass/Vol] 2.1 mg/dL Low 2.7-4.5 [facility] Comment on above: Order Comment: CMP-T IMED FOR A Q6 BMP Performed By: #### L 501.5200, L501.2300, L500.4050 ####[facility] [address] [place], [address] Urine Drug Screen (VISTA)on 11-06-2024 AMPHETAMINES Negative Normal <1000 ng/mL [facility] Comment on above: Performed By: #### L 505.5000 ####[facility] [address] [place], [address] BARBITIURATES Negative Normal < 200 ng/mL [facility] Comment on above: Performed By: #### L 505.5000 ####[facility] [address] [place], [address] BENZODIAZIPINE Negative Normal < 200 ng/mL [facility] Comment on above: Performed By: #### L 505.5000 ####[facility] [address] [place], [address] BUP Ur Drug Scr Negative Normal < 200 ng/mL [facility] Comment on above: Performed By: #### L 505.5000 ####[facility] [address] [place], [address] COCAINE Negative Normal < 300 ng/mL [facility] Comment on above: Performed By: #### L 505.5000 ####[facility] [address] [place], [address] Fentanyl Negative Normal [facility] Comment on above: Performed By: #### L 505.5000 ####[facility] [address] [place], [address] METHADONE Negative Normal < 300 ng/mL [facility] Comment on above: Performed By: #### L 505.5000 ####[facility] [address] [place], [address] OPIATES Negative Normal < 300 ng/mL [facility] Comment on above: Performed By: #### L 505.5000 ####[facility] [address] [place], [address] OXYCODONE Negative Normal < 100 ng/mL [facility] Comment on above: Performed By: #### L 505.5000 ####[facility] [address] [place], [address] PCP Negative Normal < 25 ng/mL [facility] Comment on above: Performed By: #### L 505.5000 ####[facility] [address] [place], [address] THC Positive Normal < 50 ng/mL [facility] Comment on above: Result Comment: If c onfirmation testing is needed, a separate order will berequired to send out testing to the reference laboratory. Performed By: #### L 505.5000 ####[facility] [address] [place], [address] Basic Metabolic Profile (BMP )on 11-05-2024 BUN/CRE 18.5 RATIO Normal 10-20 [facility] Comment on above: Performed By: #### L 500.2500 ####[facility] [address] [place], [address] Calcium [Mass/Vol] 7.5 mg/dL Low 7.6-11.0 [facility] Comment on above: Performed By: #### L 500.2500 ####[facility] [address] [place], [address] Chloride [Moles/Vol] 99 mmol/L Normal 98-108 [facility] Comment on above: Performed By: #### L 500.2500 ####[facility] [address] [place], [address] CO2 [Moles/Vol] 15.7 mmol/L Low 21.0-32.0 [facility] Comment on above: Performed By: #### L 500.2500 ####[facility] [address] [place], [address] Creatinine [Mass/Vol] 0.74 mg/dL Normal 0.70-1.20 [facility] Comment on above: Performed By: #### L 500.2500 ####[facility] [address] [place], [address] ECRCL 116.17 ml/min Normal 50-250 [facility] Comment on above: Performed By: #### L 500.2500 ####[facility] [address] [place], [address] GAP 18 High 5-15 [facility] Comment on above: Performed By: #### L 500.2500 ####[facility] [address] [place], [address] GFR/1.73 sq M.predicted among non-blacks MDRD (S/P/Bld) [Vol rate/Area] 111 mL/min/{1.73_m2} Normal >60 [facility] Comment on above: Result Comment: mL/m in/1.73m2 CKD-EPI Creatinine Equation (2020) Performed By: #### L 500.2500 ####[facility] [address] [place], [address] Glucose [Mass/Vol] 176 mg/dL High 70-99 [facility] Comment on above: Performed By: #### L 500.2500 ####[facility] [address] [place], [address] Potassium [Moles/Vol] 4.8 mmol/L Normal 3.3-5.1 [facility] Comment on above: Performed By: #### L 500.2500 ####[facility] [address] [place], [address] Sodium [Moles/Vol] 133 mmol/L Normal 133-145 [facility] Comment on above: Performed By: #### L 500.2500 ####[facility] [address] [place], [address] Urea nitrogen [Mass/Vol] 14 mg/dL Normal 4-19 [facility] Comment on above: Performed By: #### L 500.2500 ####[facility] [address] [place], [address] BUN Normal 4-19 [facility] Comment on above: Result Comment: DUPL ICATE Performed By: #### L 500.2500 ####[facility] [address] [place], [address] BUN/CRE Normal 10-20 [facility] Comment on above: Result Comment: DUPL ICATE Performed By: #### L 500.2500 ####[facility] [address] [place], [address] Calcium Normal 7.6-11.0 [facility] Comment on above: Result Comment: DUPL ICATE Performed By: #### L 500.2500 ####[facility] [address] [place], [address] CL Normal 98-108 [facility] Comment on above: Result Comment: DUPL ICATE Performed By: #### L 500.2500 ####[facility] [address] [place], [address] CO2 Normal 21.0-32.0 [facility] Comment on above: Result Comment: DUPL ICATE Performed By: #### L 500.2500 ####[facility] [address] [place], [address] CREAT,SERUM Normal 0.70-1.20 [facility] Comment on above: Result Comment: DUPL ICATE Performed By: #### L 500.2500 ####[facility] [address] [place], [address] eGFR Normal >60 [facility] Comment on above: Result Comment: DUPL ICATE Performed By: #### L 500.2500 ####[facility] [address] [place], [address] GAP Normal 5-15 [facility] Comment on above: Result Comment: DUPL ICATE Performed By: #### L 500.2500 ####[facility] [address] [place], [address] GLU Normal 70-99 [facility] Comment on above: Result Comment: DUPL ICATE Performed By: #### L 500.2500 ####[facility] [address] [place], [address] Potassium Normal 3.3-5.1 [facility] Comment on above: Result Comment: DUPL ICATE Performed By: #### L 500.2500 ####[facility] [address] [place], [address] Basic Metabolic Profile (BMP) Normal 133-145 [facility] Comment on above: Result Comment: DUPL ICATE Performed By: #### L 500.2500 ####[facility] [facility] [address] [place], [address] Bedside Glucoseon 11-05-2024 FINGERSTICK GLU 109 mg/dL High 74-106 [facility] Comment on above: Result Comment: EDGAR HUNG OF PATIENT CARE PER NURSING PROTOCOL Performed By: #### L 501.080 ####[facility] [address] [place], [address] FINGERSTICK GLU 222 mg/dL High 74-106 [facility] Comment on above: Result Comment: EDGAR HUNG OF PATIENT CARE PER NURSING PROTOCOL Performed By: #### L 501.080 ####[facility] [address] [place], [address] [facility] Positive Normal [facility] Comment on above: Performed By: #### L 9000.0800 ####[facility] [address] [place], [address] Base excess Calc (Bld) [Moles/Vol] -5 mmol/L Low -2 to +2 [facility] Comment on above: Performed By: #### L 9000.0800 ####[facility] [address] [place], [address] Blood Gas Type ART Normal [facility] Comment on above: Performed By: #### L 9000.0800 ####[facility] [address] [place], [address] CO2 [Moles/Vol] 21 mmol/L Normal [facility] Comment on above: Performed By: #### L 9000.0800 ####[facility] [address] [place], [address] HCO3 (Bld) [Moles/Vol] 19.9 mmol/L Low 22-26 [facility] Comment on above: Performed By: #### L 9000.0800 ####[facility] [address] [place], [address] Mode Not entered Normal [facility] Comment on above: Performed By: #### L 9000.0800 ####[facility] [address] [place], [address] O2 Delivery Dev Room Air Normal [facility] Comment on above: Performed By: #### L 9000.0800 ####[facility] [address] [place], [address] pCO2 31.1 mmHg Low 35-45 [facility] Comment on above: Performed By: #### L 9000.0800 ####[facility] [address] [place], [address] pH (Bld) 7.42 [pH] Normal 7.35-7.45 [facility] Comment on above: Performed By: #### L 9000.0800 ####[facility] [address] [place], [address] PO2 89 mmHG Normal 75-100 [facility] Comment on above: Performed By: #### L 9000.0800 ####[facility] [address] [place], [address] SITE L Radial Normal [facility] Comment on above: Performed By: #### L 9000.0800 ####[facility] [address] [place], [address] SO2 97 Normal 95-99 [facility] Comment on above: Performed By: #### L 9000.0800 ####[facility] [address] [place], [address] CBC W/Diff, Automatedon 10-26 Absolute Lymph 0.93 X10 3/uL Normal 0.83-4.51 [facility] Comment on above: Performed By: #### L 500.4050, L100.0100, L503.6005, L501.2450, L700.6800 ####[facility] [address] [place], [address] Absolute Neut 13.4 X10 3/uL High 2.0-7.7 [facility] Comment on above: Performed By: #### L 500.4050, L100.0100, L503.6005, L501.2450, L700.6800 ####[facility] [address] [place], [address] Basophils/100 WBC (Bld) 0.2 % Normal 0-1 [facility] Comment on above: Performed By: #### L 500.4050, L100.0100, L503.6005, L501.2450, L700.6800 ####[facility] [address] [place], [address] Eosinophils/100 WBC (Bld) 0.0 % Normal 0-5 [facility] Comment on above: Performed By: #### L 500.4050, L100.0100, L503.6005, L501.2450, L700.6800 ####[facility] [address] [place], [address] Erythrocyte distribution width (RBC) [Ratio] 13.6 % Normal 11.6-14.6 [facility] Comment on above: Performed By: #### L 500.4050, L100.0100, L503.6005, L501.2450, L700.6800 ####[facility] [address] [place], [address] Hematocrit (Bld) [Volume fraction] 38.0 % Normal 37-47 [facility] Comment on above: Performed By: #### L 500.4050, L100.0100, L503.6005, L501.2450, L700.6800 ####[facility] [address] [place], [address] Hemoglobin (Bld) [Mass/Vol] 12.7 g/dL Normal 12.0-15.0 [facility] Comment on above: Performed By: #### L 500.4050, L100.0100, L503.6005, L501.2450, L700.6800 ####[facility] [address] [place], [address] IG% 1.000 High 0.0-0.9 [facility] Comment on above: Result Comment: IG% - Immature Granulocytes (promyelocytes, myelocytes andmetamyelocytes) > 1% indicates that a LEFT SHIFT is Present. Performed By: #### L 500.4050, L100.0100, L503.6005, L501.2450, L700.6800 ####[facility] [address] [place], [address] Lymphocytes/100 WBC (Bld) 6.1 % Low 19-41 [facility] Comment on above: Performed By: #### L 500.4050, L100.0100, L503.6005, L501.2450, L700.6800 ####[facility] [address] [place], [address] MCH (RBC) [Entitic mass] 29.9 pg Normal 27.0-32.0 [facility] Comment on above: Performed By: #### L 500.4050, L100.0100, L503.6005, L501.2450, L700.6800 ####[facility] [address] [place], [address] MCHC (RBC) [Mass/Vol] 33.4 g/dL Normal 32-36 [facility] Comment on above: Performed By: #### L 500.4050, L100.0100, L503.6005, L501.2450, L700.6800 ####[facility] [address] [place], [address] MCV (RBC) [Entitic vol] 89.4 fL Normal 81-99 [facility] Comment on above: Performed By: #### L 500.4050, L100.0100, L503.6005, L501.2450, L700.6800 ####[facility] [address] [place], [address] Monocytes/100 WBC (Bld) 4.7 % Normal 0-10 [facility] Comment on above: Performed By: #### L 500.4050, L100.0100, L503.6005, L501.2450, L700.6800 ####[facility] [address] [place], [address] Neutrophils/100 WBC (Bld) 88.0 % High 47-70 [facility] Comment on above: Performed By: #### L 500.4050, L100.0100, L503.6005, L501.2450, L700.6800 ####[facility] [address] [place], [address] Nucleated RBC (Bld) [#/Vol] 0 10*3/uL Normal 0-5 [facility] Comment on above: Performed By: #### L 500.4050, L100.0100, L503.6005, L501.2450, L700.6800 ####[facility] [address] [place], [address] Platelet mean volume (Bld) [Entitic vol] 11.7 fL Normal 6.2-12.0 [facility] Comment on above: Performed By: #### L 500.4050, L100.0100, L503.6005, L501.2450, L700.6800 ####[facility] [address] [place], [address] Platelets (Bld) [#/Vol] 201 10*3/uL Normal 150-450 [facility] Comment on above: Performed By: #### L 500.4050, L100.0100, L503.6005, L501.2450, L700.6800 ####[facility] [address] [place], [address] RBC (Bld) [#/Vol] 4.25 10*6/uL Normal 4.2-5.4 [facility] Comment on above: Performed By: #### L 500.4050, L100.0100, L503.6005, L501.2450, L700.6800 ####[facility] [address] [place], [address] RDW SD 44.6 fl High 35.1-43.9 [facility] Comment on above: Performed By: #### L 500.4050, L100.0100, L503.6005, L501.2450, L700.6800 ####[facility] [address] [place], [address] WBC (Bld) [#/Vol] 15.2 10*3/uL High 4.4-11.0 [facility] Comment on above: Performed By: #### L 500.4050, L100.0100, L503.6005, L501.2450, L700.6800 ####[facility] [address] [place], [address] [facility] KATHLEEN VILLA ([id number]) 1995 F T Date Time Provider Department 11/05/24 LETICIA HYLTON [facility] During your visit today, we recorded the [...] Units subcutaneously every 24 hours. 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 Normal [facility] Metabolic Prof rion 11-05-2024 Albumin [Mass/Vol] 4.1 g/dL Normal 3.5-5.0 [facility] Comment on above: Performed By: #### L 500.4050, L100.0100, L503.6005, L501.2450, L700.6800 ####[facility] [address] [place], [address] Albumin/Globulin [Mass ratio] 1.5 {ratio} Normal 0.9-2.4 [facility] Comment on above: Performed By: #### L 500.4050, L100.0100, L503.6005, L501.2450, L700.6800 ####[facility] [address], [address] ALK PHOS 89 U/L Normal 35-104 [facility] Comment on above: Performed By: #### L 500.4050, L100.0100, L503.6005, L501.2450, L700.6800 ####[facility] [address] [place], [address] ALT [Catalytic activity/Vol] 17 U/L Normal <=34 [facility] Comment on above: Performed By: #### L 500.4050, L100.0100, L503.6005, L501.2450, L700.6800 ####[facility] [address] [place], [address] AST [Catalytic activity/Vol] 21 U/L Normal <=31 [facility] Comment on above: Performed By: #### L 500.4050, L100.0100, L503.6005, L501.2450, L700.6800 ####[facility] [address] [place], [address] Bilirubin [Mass/Vol] 1.15 mg/dL Normal 0.00-1.30 [facility] Comment on above: Performed By: #### L 500.4050, L100.0100, L503.6005, L501.2450, L700.6800 ####[facility] [address] [place], [address] BUN/CRE 18.4 RATIO Normal 10-20 [facility] Comment on above: Performed By: #### L 500.4050, L100.0100, L503.6005, L501.2450, L700.6800 ####[facility] [address] [place], [address] Calcium [Mass/Vol] 8.2 mg/dL Normal 7.6-11.0 [facility] Comment on above: Performed By: #### L 500.4050, L100.0100, L503.6005, L501.2450, L700.6800 ####[facility] [address] [place], [address] Chloride [Moles/Vol] 94 mmol/L Low 98-108 [facility] Comment on above: Performed By: #### L 500.4050, L100.0100, L503.6005, L501.2450, L700.6800 ####[facility] [address] [place], [address] CO2 [Moles/Vol] 12.8 mmol/L Low 21.0-32.0 [facility] Comment on above: Performed By: #### L 500.4050, L100.0100, L503.6005, L501.2450, L700.6800 ####[facility] [address] [place], [address] Creatinine [Mass/Vol] 0.86 mg/dL Normal 0.70-1.20 [facility] Comment on above: Performed By: #### L 500.4050, L100.0100, L503.6005, L501.2450, L700.6800 ####[facility] [address] [place], [address] ECRCL 99.96 ml/min Normal 50-250 [facility] Comment on above: Performed By: #### L 500.4050, L100.0100, L503.6005, L501.2450, L700.6800 ####[facility] [address] [place], [address] GAP 27 High 5-15 [facility] Comment on above: Performed By: #### L 500.4050, L100.0100, L503.6005, L501.2450, L700.6800 ####[facility] [address] [place], [address] GFR/1.73 sq M.predicted among non-blacks MDRD (S/P/Bld) [Vol rate/Area] 93 mL/min/{1.73_m2} Normal >60 [facility] Comment on above: Result Comment: mL/m in/1.73m2 CKD-EPI Creatinine Equation (2020) Performed By: #### L 500.4050, L100.0100, L503.6005, L501.2450, L700.6800 ####[facility] [address] [place], [address] Globulin (S) [Mass/Vol] 2.8 g/dL Normal 2.2-4.2 [facility] Comment on above: Performed By: #### L 500.4050, L100.0100, L503.6005, L501.2450, L700.6800 ####[facility] [address] [place], [address] Glucose [Mass/Vol] 251 mg/dL High 70-99 [facility] Comment on above: Performed By: #### L 500.4050, L100.0100, L503.6005, L501.2450, L700.6800 ####[facility] [address] [place], [address] Potassium [Moles/Vol] 3.0 mmol/L Low 3.3-5.1 [facility] Comment on above: Performed By: #### L 500.4050, L100.0100, L503.6005, L501.2450, L700.6800 ####[facility] [address] [place], [address] Sodium [Moles/Vol] 134 mmol/L Normal 133-145 [facility] Comment on above: Performed By: #### L 500.4050, L100.0100, L503.6005, L501.2450, L700.6800 ####[facility] [address] [place], [address] T PROT 6.9 g/dL Normal 5.9-8.4 [facility] Comment on above: Performed By: #### L 500.4050, L100.0100, L503.6005, L501.2450, L700.6800 ####[facility] [address] [place], [address] Urea nitrogen [Mass/Vol] 16 mg/dL Normal 4-19 [facility] Comment on above: Performed By: #### L 500.4050, L100.0100, L503.6005, L501.2450, L700.6800 ####[facility] [address] [place], [address] Emergency Department Summary on 11-05-2024 Emergency Department Summary Normal [facility] Gallbladderon 11-05-2024 Gallbladder Normal [facility] H AND P Exam - Hospitaliston 11-05-2024 H&P Exam - Hospitalist Normal [facility] L501.6901on 11-05-2024 BETA-HYDROXYBUT 7.1 mmol/L Normal 0.0-0.3 [facility] Comment on above: Performed By: #### L 501.6901 ####[facility] [address] [place], [address] Lactic Acidon 11-05-2024 Lactate [Moles/Vol] mmol/L Normal 0.0-2.0 [facility] Comment on above: Order Comment: Y Performed By: #### L 500.4050, L100.0100, L503.6005, L501.2450, L700.6800 ####[facility] [address] [place], [address] Lipaseon 11-05-2024 Lipase [Catalytic activity/Vol] 13 U/L Normal 13-75 [facility] Comment on above: Result Comment: Sulma schmitz note:LIPASE revised reference range effective 22.New Lipase methodology. Expected to produce lower valuesthan the previous assay method.NEW Reference Range: 13 - 75 U/L Performed By: #### L 500.4050, L100.0100, L503.6005, L501.2450, L700.6800 ####[facility] [address] [place], [address] ,Serum,hCG Quali.on 11-05-2024 HCG, SERUM QUAL Negative Normal [facility] Comment on above: Performed By: #### L 500.4050, L100.0100, L503.6005, L501.2450, L700.6800 ####[facility] [address] [place], [address] Urinalysis, Completeon 11-05 BACTERIA 1+ /hpf Normal None Seen [facility] Comment on above: Order Comment: CLEAN CATCH Performed By: #### L 400.0001 ####[facility] [address] [place], [address] EPI,SQUAMOUS 0-5 SEEN Normal 5-10 [facility] Comment on above: Order Comment: CLEAN CATCH Performed By: #### L 400.0001 ####[facility] [address] [place], [address] WBC 0-5 SEEN Normal 0-5 [facility] Comment on above: Order Comment: CLEAN CATCH Performed By: #### L 400.0001 ####[facility] [address] [place], [address] RBC 0 SEEN Normal 0-5 [facility] Comment on above: Order Comment: CLEAN CATCH Performed By: #### L 400.0001 ####[facility] [address] [place], [address] Mucus Ql (Urine sed) 0 SEEN Normal [facility] Comment on above: Order Comment: CLEAN CATCH Performed By: #### L 400.0001 ####[facility] [address] [place], [address] Venous Blood Gason 5 Blood Gas Type ISABELLE Normal [facility] Comment on above: Performed By: #### L 9000.0810 ####[facility] [address] [place], [address] CO2 [Moles/Vol] 14 mmol/L Low 23-33 [facility] Comment on above: Performed By: #### L 9000.0810 ####[facility] [address] [place], [address] HCO3 (Bld) [Moles/Vol] 14 mmol/L Low 22-26 [facility] Comment on above: Performed By: #### L 9000.0810 ####[facility] [address] [place], [address] O2 Delivery Dev Not entered Normal [facility] Comment on above: Performed By: #### L 9000.0810 ####[facility] [address] [place], [address] SITE Not entered Normal [facility] Comment on above: Performed By: #### L 9000.0810 ####[facility] [address] [place], [address] VBG BE -11 mmol/L Low -1.0-3.5 [facility] Comment on above: Performed By: #### L 9000.0810 ####[facility] [address] [place], [address] VBG pCO2 20.7 mmHg Low 41-51 [facility] Comment on above: Performed By: #### L 9000.0810 ####[facility] [address] [place], [address] VBG pH 7.43 High 7.32-7.42 [facility] Comment on above: Performed By: #### L 9000.0810 ####[facility] [address] [place], [address] VBG PO2 68 mmHg High 25-40 [facility] Comment on above: Performed By: #### L 9000.0810 ####[facility] [address] [place], [address] VBG SO2 95 High 50-70 [facility] Comment on above: Performed By: #### L 0.0810 ####[facility] [address] [place], [address] L501.6901on 11-04-2024 BETA-HYDROXYBUT 1.5 mmol/L Normal 0.0-0.3 [facility] Comment on above: Performed By: #### L 501.6901 ####[facility] [address] [place], [address] Venous Blood Gason 5 CO2 [Moles/Vol] 20 mmol/L Low 23-33 [facility] Comment on above: Performed By: #### L 9000.0810 ####[facility] [address] [place], [address] HCO3 (Bld) [Moles/Vol] 19 mmol/L Low 22-26 [facility] Comment on above: Performed By: #### L 9000.0810 ####[facility] [address] [place], [address] VBG SO2 94 High 50-70 [facility] Comment on above: Performed By: #### L 9000.0810 ####[facility] [address] [place], [address] Blood Gas Type ISABELLE Normal [facility] Comment on above: Performed By: #### L 900.0810 ####[facility] [address] [place], [address] VBG pCO2 30.3 mmHg Low 41-51 [facility] Comment on above: Performed By: #### L 9000.0810 ####[facility] [address] [place], [address] VBG pH 7.40 Normal 7.32-7.42 [facility] Comment on above: Performed By: #### L 9000.0810 ####[facility] [address] [place], [address] VBG PO2 71 mmHg High 25-40 [facility] Comment on above: Performed By: #### L 9000.0810 ####[facility] [address] [place], [address] Abdomen/Pelvis W IV Cont ONL Yon 11-03-2024 Abdomen/Pelvis W IV Cont ONLY Normal [facility] CBC W/Diff, Automatedon Absolute Lymph 1.92 X10 3/uL Normal 0.83-4.51 [facility] Comment on above: Performed By: #### L 501.2450, L100.0100, L500.4050 ####[facility] [address] [place], [address] Absolute Neut 8.4 X10 3/uL High 2.0-7.7 [facility] Comment on above: Performed By: #### L 501.2450, L100.0100, L500.4050 ####[facility] [address] [place], [address] Basophils/100 WBC (Bld) 0.5 % Normal 0-1 [facility] Comment on above: Performed By: #### L 501.2450, L100.0100, L500.4050 ####[facility] [address] [place], [address] Eosinophils/100 WBC (Bld) 0.3 % Normal 0-5 [facility] Comment on above: Performed By: #### L 501.2450, L100.0100, L500.4050 ####[facility] [address] [place], [address] Erythrocyte distribution width (RBC) [Ratio] 13.2 % Normal 11.6-14.6 [facility] Comment on above: Performed By: #### L 501.2450, L100.0100, L500.4050 ####[facility] [address] [place], [address] Hematocrit (Bld) [Volume fraction] 42.1 % Normal 37-47 [facility] Comment on above: Performed By: #### L 501.2450, L100.0100, L500.4050 ####[facility] [address] [place], [address] Hemoglobin (Bld) [Mass/Vol] 14.2 g/dL Normal 12.0-15.0 [facility] Comment on above: Performed By: #### L 501.2450, L100.0100, L500.4050 ####[facility] [address] [place], [address] IG% 0.800 Normal 0.0-0.9 [facility] Comment on above: Result Comment: IG% - Immature Granulocytes (promyelocytes, myelocytes andmetamyelocytes) > 1% indicates that a LEFT SHIFT is Present. Performed By: #### L 501.2450, L100.0100, L500.4050 ####[facility] [address] [place], [address] Lymphocytes/100 WBC (Bld) 17.5 % Low 19-41 [facility] Comment on above: Performed By: #### L 501.2450, L100.0100, L500.4050 ####[facility] [address] [place], [address] MCH (RBC) [Entitic mass] 29.3 pg Normal 27.0-32.0 [facility] Comment on above: Performed By: #### L 501.2450, L100.0100, L500.4050 ####[facility] [address] [place], [address] MCHC (RBC) [Mass/Vol] 33.7 g/dL Normal 32-36 [facility] Comment on above: Performed By: #### L 501.2450, L100.0100, L500.4050 ####[facility] [address] [place], [address] MCV (RBC) [Entitic vol] 87.0 fL Normal 81-99 [facility] Comment on above: Performed By: #### L 501.2450, L100.0100, L500.4050 ####[facility] [address] [place], [address] Monocytes/100 WBC (Bld) 4.6 % Normal 0-10 [facility] Comment on above: Performed By: #### L 501.2450, L100.0100, L500.4050 ####[facility] [address] [place], [address] Neutrophils/100 WBC (Bld) 76.3 % High 47-70 [facility] Comment on above: Performed By: #### L 501.2450, L100.0100, L500.4050 ####[facility] [address] [place], [address] Nucleated RBC (Bld) [#/Vol] 0 10*3/uL Normal 0-5 [facility] Comment on above: Performed By: #### L 501.2450, L100.0100, L500.4050 ####[facility] [address] [place], [address] Platelet mean volume (Bld) [Entitic vol] 12.4 fL High 6.2-12.0 [facility] Comment on above: Performed By: #### L 501.2450, L100.0100, L500.4050 ####[facility] [address] [place], [address] Platelets (Bld) [#/Vol] 263 10*3/uL Normal 150-450 [facility] [facility] Comment on above: Performed By: #### L 501.2450, L100.0100, L500.4050 ####[facility] [address] [place], [address] RBC (Bld) [#/Vol] 4.84 10*6/uL Normal 4.2-5.4 [facility] Comment on above: Performed By: #### L 501.2450, L100.0100, L500.4050 ####[facility] [address] [place], [address] RDW SD 41.6 fl Normal 35.1-43.9 [facility] Comment on above: Performed By: #### L 501.2450, L100.0100, L500.4050 ####[facility] [address] [place], [address] WBC (Bld) [#/Vol] 11.0 10*3/uL Normal 4.4-11.0 [facility] Comment on above: Performed By: #### L 501.2450, L100.0100, L500.4050 ####[facility] [address] [place], [address] Comprehensive Metabolic Prof rion 11-03-2024 Albumin [Mass/Vol] 4.7 g/dL Normal 3.5-5.0 [facility] Comment on above: Performed By: #### L 501.2450, L100.0100, L500.4050 ####[facility] [address] [place], [address] Albumin/Globulin [Mass ratio] 1.4 {ratio} Normal 0.9-2.4 [facility] Comment on above: Performed By: #### L 501.2450, L100.0100, L500.4050 ####[facility] [address] [place], [address] ALK PHOS 101 U/L Normal 35-104 [facility] Comment on above: Performed By: #### L 501.2450, L100.0100, L500.4050 ####[facility] [address] [place], [address] ALT [Catalytic activity/Vol] 22 U/L Normal <=34 [facility] Comment on above: Performed By: #### L 501.2450, L100.0100, L500.4050 ####[facility] [address] [place], [address] AST [Catalytic activity/Vol] 20 U/L Normal <=31 [facility] Comment on above: Result Comment: Hemo lysis present, Results??could be affected.?? Performed By: #### L 501.2450, L100.0100, L500.4050 ####[facility] [address] [place], [address] Bilirubin [Mass/Vol] 0.98 mg/dL Normal 0.00-1.30 [facility] Comment on above: Performed By: #### L 501.2450, L100.0100, L500.4050 ####[facility] [address] [place], [address] BUN/CRE 17.6 RATIO Normal 10-20 [facility] Comment on above: Performed By: #### L 501.2450, L100.0100, L500.4050 ####[facility] [address] [place], [address] Calcium [Mass/Vol] 9.9 mg/dL Normal 7.6-11.0 [facility] Comment on above: Performed By: #### L 501.2450, L100.0100, L500.4050 ####[facility] [address] [place], [address] Chloride [Moles/Vol] 97 mmol/L Low 98-108 [facility] Comment on above: Performed By: #### L 501.2450, L100.0100, L500.4050 ####[facility] [address] [place], [address] CO2 [Moles/Vol] 18.2 mmol/L Low 21.0-32.0 [facility] Comment on above: Performed By: #### L 501.2450, L100.0100, L500.4050 ####[facility] [address] [place], [address] Creatinine [Mass/Vol] 0.84 mg/dL Normal 0.70-1.20 [facility] Comment on above: Performed By: #### L 501.2450, L100.0100, L500.4050 ####[facility] [address] [place], [address] ECRCL 102.34 ml/min Normal 50-250 [facility] Comment on above: Performed By: #### L 501.2450, L100.0100, L500.4050 ####[facility] [address] [place], [address] GAP 18 High 5-15 [facility] Comment on above: Performed By: #### L 501.2450, L100.0100, L500.4050 ####[facility] [address] [place], [address] GFR/1.73 sq M.predicted among non-blacks MDRD (S/P/Bld) [Vol rate/Area] 96 mL/min/{1.73_m2} Normal >60 [facility] Comment on above: Result Comment: mL/m in/1.73m2 CKD-EPI Creatinine Equation (2020) Performed By: #### L 501.2450, L100.0100, L500.4050 ####[facility] [address] [place], [address] Globulin (S) [Mass/Vol] 3.3 g/dL Normal 2.2-4.2 [facility] Comment on above: Performed By: #### L 501.2450, L100.0100, L500.4050 ####[facility] [address] [place], [address] Glucose [Mass/Vol] 375 mg/dL High 70-99 [facility] Comment on above: Performed By: #### L 501.2450, L100.0100, L500.4050 ####[facility] [address] [place], [address] Potassium [Moles/Vol] 4.4 mmol/L Normal 3.3-5.1 [facility] Comment on above: Result Comment: Hemo lysis present, Results??could be affected.?? Performed By: #### L 501.2450, L100.0100, L500.4050 ####[facility] [address] [place], [address] Sodium [Moles/Vol] 133 mmol/L Normal 133-145 [facility] Comment on above: Performed By: #### L 501.2450, L100.0100, L500.4050 ####[facility] [address] [place], [address] T PROT 7.9 g/dL Normal 5.9-8.4 [facility] Comment on above: Performed By: #### L 501.2450, L100.0100, L500.4050 ####[facility] [address] [place], [address] Urea nitrogen [Mass/Vol] 15 mg/dL Normal 4-19 [facility] Comment on above: Performed By: #### L 501.2450, L100.0100, L500.4050 ####[facility] [address] [place], [address] Emergency Department Summary on 11-03-2024 Emergency Department Summary Normal [facility] Lipaseon 11-03-2024 Lipase [Catalytic activity/Vol] 14 U/L Normal 13-75 [facility] Comment on above: Result Comment: Sulma schmitz note:LIPASE revised reference range effective 22.New Lipase methodology. Expected to produce lower valuesthan the previous assay method.NEW Reference Range: 13 - 75 U/L Performed By: #### L 501.2450, L100.0100, L500.4050 ####[facility] [address] [place], [address] Urinalysis, Completeon 11-03 BACTERIA RARE Normal None Seen [facility] Comment on above: Order Comment: CLEAN CATCH Performed By: #### L 400.0001 ####[facility] [address] [place], [address] EPI,SQUAMOUS 0-5 SEEN Normal 5-10 [facility] Comment on above: Order Comment: CLEAN CATCH Performed By: #### L 400.0001 ####[facility] [address] [place], [address] RBC 0 SEEN Normal 0-5 [facility] Comment on above: Order Comment: CLEAN CATCH Performed By: #### L 400.0001 ####[facility] [address] [place], [address] WBC 0-5 SEEN Normal 0-5 [facility] Comment on above: Order Comment: CLEAN CATCH Performed By: #### L 400.0001 ####[facility] [address] [place], [address] BILIRUBIN URINE Negative Normal Negative [facility] Comment on above: Order Comment: CLEAN CATCH Performed By: #### L 400.0001 ####[facility] [address] [place], [address] Clarity (U) Turbid Normal Clear [facility] Comment on above: Order Comment: CLEAN CATCH Performed By: #### L 400.0001 ####[facility] [address] [place], [address] Color (U) Straw Normal Yellow [facility] Comment on above: Order Comment: CLEAN CATCH Performed By: #### L 400.0001 ####[facility] [address] [place], [address] GLUCOSE, UR 1000 mg/dl Abnormal Normal [facility] Comment on above: Order Comment: CLEAN CATCH Performed By: #### L 400.0001 ####[facility] [address] [place], [address] KETONE UR 50 mg/dl Abnormal Negative [facility] Comment on above: Order Comment: CLEAN CATCH Performed By: #### L 400.0001 ####[facility] [address] [place], [address] LEUK ESTERASE Negative Normal Negative [facility] Comment on above: Order Comment: CLEAN CATCH Performed By: #### L 400.0001 ####[facility] [address] [place], [address] Nitrite Ql (U) Negative Normal Negative [facility] Comment on above: Order Comment: CLEAN CATCH Performed By: #### L 400.0001 ####[facility] [address] [place], [address] OCCULT BLOOD-UR Negative Normal Negative [facility] Comment on above: Order Comment: CLEAN CATCH Performed By: #### L 400.0001 ####[facility] [address] [place], [address] pH UR 6.0 Normal 5.0 - 8.0 [facility] Comment on above: Order Comment: CLEAN CATCH Performed By: #### L 400.0001 ####[facility] [address] [place], [address] PROT DIPSTX Negative Normal Negative [facility] Comment on above: Order Comment: CLEAN CATCH Performed By: #### L 400.0001 ####[facility] [address] [place], [address] SP.GR. DIPSTX 1.015 Normal 1.002-1.030 [facility] Comment on above: Order Comment: CLEAN CATCH Performed By: #### L 400.0001 ####[facility] [address] [place], [address] UROBILI Normal Normal Normal [facility] Comment on above: Order Comment: CLEAN CATCH Performed By: #### L 400.0001 ####[facility] [address] [place], [address] Mucus Ql (Urine sed) 0 SEEN Normal [facility] Comment on above: Order Comment: CLEAN CATCH Performed By: #### L 400.0001 ####[facility] [address] [place], [address] Basic Metabolic Profile (BMP )on 10-27-2024 BUN Normal 7-18 [facility] Comment on above: Result Comment: Canc elled via OM: Order cancelled - Patient discharged Performed By: #### L 100.0100, L500.2500 ####[facility] [address] [place], [address] BUN/CRE Normal 10-20 [facility] Comment on above: Result Comment: Canc elled via OM: Order cancelled - Patient discharged Performed By: #### L 100.0100, L500.2500 ####[facility] [address] [place], [address] CA,Total Normal 8.5-10.1 [facility] Comment on above: Result Comment: Canc elled via OM: Order cancelled - Patient discharged Performed By: #### L 100.0100, L500.2500 ####[facility] [address] [place], [address] CL Normal 98-107 [facility] Comment on above: Result Comment: Canc elled via OM: Order cancelled - Patient discharged Performed By: #### L 100.0100, L500.2500 ####[facility] [address] [place], [address] CO2 Normal 21.0-32.0 [facility] Comment on above: Result Comment: Canc elled via OM: Order cancelled - Patient discharged Performed By: #### L 100.0100, L500.2500 ####[facility] [address] [place], [address] CREAT,SERUM Normal 0.55-1.02 [facility] Comment on above: Result Comment: Canc elled via OM: Order cancelled - Patient discharged Performed By: #### L 100.0100, L500.2500 ####[facility] [address] [place], [address] EST GFR Normal >60 [facility] Comment on above: Result Comment: Canc elled via OM: Order cancelled - Patient discharged Performed By: #### L 100.0100, L500.2500 ####[facility] [address] [place], [address] EST GFR - AA Normal >60 [facility] Comment on above: Result Comment: Canc elled via OM: Order cancelled - Patient discharged Performed By: #### L 100.0100, L500.2500 ####[facility] [address] [place], [address] GAP Normal 5-15 [facility] Comment on above: Result Comment: Canc elled via OM: Order cancelled - Patient discharged Performed By: #### L 100.0100, L500.2500 ####[facility] [address] [place], [address] GLU Normal 74-106 [facility] Comment on above: Result Comment: Canc elled via OM: Order cancelled - Patient discharged Performed By: #### L 100.0100, L500.2500 ####[facility] [address] [place], [address] Potassium Normal 3.5-5.1 [facility] Comment on above: Result Comment: Canc elled via OM: Order cancelled - Patient discharged Performed By: #### L 100.0100, L500.2500 ####[facility] [address] [place], [address] Basic Metabolic Profile (BMP) Normal 136-145 [facility] Comment on above: Result Comment: Canc elled via OM: Order cancelled - Patient discharged Performed By: #### L 100.0100, L500.2500 ####[facility] [address] [place], [address] CBC W/Diff, Automatedon 03-0 2-2024 Absolute Neut Normal 2.0-7.7 [facility] Comment on above: Result Comment: Canc elled via OM: Order cancelled - Patient discharged Performed By: #### L 100.0100, L500.2500 ####[facility] [address] [place], [address] HCT Normal 37-47 [facility] Comment on above: Result Comment: Canc elled via OM: Order cancelled - Patient discharged Performed By: #### L 100.0100, L500.2500 ####[facility] [address] [place], [address] HGB Normal 12.0-15.0 [facility] Comment on above: Result Comment: Canc elled via OM: Order cancelled - Patient discharged Performed By: #### L 100.0100, L500.2500 ####[facility] [address] [place], [address] MCH Normal 27.0-32.0 [facility] Comment on above: Result Comment: Canc elled via OM: Order cancelled - Patient discharged Performed By: #### L 100.0100, L500.2500 ####[facility] [address] [place], [address] MCHC Normal 32-36 [facility] Comment on above: Result Comment: Canc elled via OM: Order cancelled - Patient discharged Performed By: #### L 100.0100, L500.2500 ####[facility] [address] [place], [address] MCV Normal 81-99 [facility] Comment on above: Result Comment: Canc elled via OM: Order cancelled - Patient discharged Performed By: #### L 100.0100, L500.2500 ####[facility] [address] [place], [address] NEUT% Normal 47-70 [facility] Comment on above: Result Comment: Canc elled via OM: Order cancelled - Patient discharged Performed By: #### L 100.0100, L500.2500 ####[facility] [address] [place], [address] PLT Normal 150-450 [facility] Comment on above: Result Comment: Canc elled via OM: Order cancelled - Patient discharged Performed By: #### L 100.0100, L500.2500 ####[facility] [address] [place], [address] RBC Normal 4.2-5.4 [facility] Comment on above: Result Comment: Canc elled via OM: Order cancelled - Patient discharged Performed By: #### L 100.0100, L500.2500 ####[facility] [address] [place], [address] RDW CV Normal 11.6-14.6 [facility] Comment on above: Result Comment: Canc elled via OM: Order cancelled - Patient discharged Performed By: #### L 100.0100, L500.2500 ####[facility] [address] [place], [address] RDW SD Normal 35.1-43.9 [facility] Comment on above: Result Comment: Canc elled via OM: Order cancelled - Patient discharged Performed By: #### L 100.0100, L500.2500 ####[facility] [address] [place], [address] WBC Normal 4.4-11.0 [facility] Comment on above: Result Comment: Canc elled via OM: Order cancelled - Patient discharged Performed By: #### L 100.0100, L500.2500 ####[facility] [address] [place], [address] Basic Metabolic Profile (BMP )on 10-26-2024 BUN Normal 7-18 [facility] Comment on above: Result Comment: Canc elled via OM: Order cancelled - Patient discharged Performed By: #### L 100.0100, L500.2500 ####[facility] [address] [place], [address] BUN/CRE Normal 10-20 [facility] Comment on above: Result Comment: Canc elled via OM: Order cancelled - Patient discharged Performed By: #### L 100.0100, L500.2500 ####[facility] [address] [place], [address] CA,Total Normal 8.5-10.1 [facility] Comment on above: Result Comment: Canc elled via OM: Order cancelled - Patient discharged Performed By: #### L 100.0100, L500.2500 ####[facility] [address] [place], [address] CL Normal 98-107 [facility] Comment on above: Result Comment: Canc elled via OM: Order cancelled - Patient discharged Performed By: #### L 100.0100, L500.2500 ####[facility] [address] [place], [address] CO2 Normal 21.0-32.0 [facility] Comment on above: Result Comment: Canc elled via OM: Order cancelled - Patient discharged Performed By: #### L 100.0100, L500.2500 ####[facility] [address] [place], [address] CREAT,SERUM Normal 0.55-1.02 [facility] Comment on above: Result Comment: Canc elled via OM: Order cancelled - Patient discharged Performed By: #### L 100.0100, L500.2500 ####[facility] [address] [place], [address] EST GFR Normal >60 [facility] Comment on above: Result Comment: Canc elled via OM: Order cancelled - Patient discharged Performed By: #### L 100.0100, L500.2500 ####[facility] [address] [place], [address] EST GFR - AA Normal >60 [facility] Comment on above: Result Comment: Canc elled via OM: Order cancelled - Patient discharged Performed By: #### L 100.0100, L500.2500 ####[facility] [address] [place], [address] GAP Normal 5-15 [facility] Comment on above: Result Comment: Canc elled via OM: Order cancelled - Patient discharged Performed By: #### L 100.0100, L500.2500 ####[facility] [address] [place], [address] GLU Normal 74-106 [facility] Comment on above: Result Comment: Canc elled via OM: Order cancelled - Patient discharged Performed By: #### L 100.0100, L500.2500 ####[facility] [address] [place], [address] Potassium Normal 3.5-5.1 [facility] Comment on above: Result Comment: Canc elled via OM: Order cancelled - Patient discharged Performed By: #### L 100.0100, L500.2500 ####[facility] [address] [place], [address] Basic Metabolic Profile (BMP) Normal 136-145 [facility] Comment on above: Result Comment: Canc elled via OM: Order cancelled - Patient discharged Performed By: #### L 100.0100, L500.2500 ####[facility] [address] [place], [address] CBC W/Diff, Automatedon 03-0 Absolute Neut Normal 2.0-7.7 [facility] Comment on above: Result Comment: Canc elled via OM: Order cancelled - Patient discharged Performed By: #### L 100.0100, L500.2500 ####[facility] [address] [place], [address] HCT Normal 37-47 [facility] Comment on above: Result Comment: Canc elled via OM: Order cancelled - Patient discharged Performed By: #### L 100.0100, L500.2500 ####[facility] [address] [place], [address] HGB Normal 12.0-15.0 [facility] Comment on above: Result Comment: Canc elled via OM: Order cancelled - Patient discharged Performed By: #### L 100.0100, L500.2500 ####[facility] [address] [place], [address] MCH Normal 27.0-32.0 [facility] Comment on above: Result Comment: Canc elled via OM: Order cancelled - Patient discharged Performed By: #### L 100.0100, L500.2500 ####[facility] [address] [place], [address] MCHC Normal 32-36 [facility] Comment on above: Result Comment: Canc elled via OM: Order cancelled - Patient discharged Performed By: #### L 100.0100, L500.2500 ####[facility] [address] [place], [address] MCV Normal 81-99 [facility] Comment on above: Result Comment: Canc elled via OM: Order cancelled - Patient discharged Performed By: #### L 100.0100, L500.2500 ####[facility] [address] [place], [address] NEUT% Normal 47-70 [facility] Comment on above: Result Comment: Canc elled via OM: Order cancelled - Patient discharged Performed By: #### L 100.0100, L500.2500 ####[facility] [address] [place], [address] PLT Normal 150-450 [facility] Comment on above: Result Comment: Canc elled via OM: Order cancelled - Patient discharged Performed By: #### L 100.0100, L500.2500 ####[facility] [address] [place], [address] RBC Normal 4.2-5.4 [facility] Comment on above: Result Comment: Canc elled via OM: Order cancelled - Patient discharged Performed By: #### L 100.0100, L500.2500 ####[facility] [address] [place], [address] RDW CV Normal 11.6-14.6 [facility] Comment on above: Result Comment: Canc elled via OM: Order cancelled - Patient discharged Performed By: #### L 100.0100, L500.2500 ####[facility] [address] [place], [address] RDW SD Normal 35.1-43.9 [facility] Comment on above: Result Comment: Canc elled via OM: Order cancelled - Patient discharged Performed By: #### L 100.0100, L500.2500 ####[facility] [address] [place], [address] WBC Normal 4.4-11.0 [facility] Comment on above: Result Comment: Canc elled via OM: Order cancelled - Patient discharged Performed By: #### L 100.0100, L500.2500 ####[facility] [address] [place], [address] Basic Metabolic Profile (BMP )on 10-25-2024 BUN Normal 7-18 [facility] Comment on above: Result Comment: Canc elled via OM: Order cancelled - Patient discharged Performed By: #### L 100.0100, L500.2500 ####[facility] [address] [place], [address] BUN/CRE Normal 10-20 [facility] Comment on above: Result Comment: Canc elled via OM: Order cancelled - Patient discharged Performed By: #### L 100.0100, L500.2500 ####[facility] [address] [place], [address] CA,Total Normal 8.5-10.1 [facility] Comment on above: Result Comment: Canc elled via OM: Order cancelled - Patient discharged Performed By: #### L 100.0100, L500.2500 ####[facility] [address] [place], [address] CL Normal 98-107 [facility] Comment on above: Result Comment: Canc elled via OM: Order cancelled - Patient discharged Performed By: #### L 100.0100, L500.2500 ####[facility] [address] [place], [address] CO2 Normal 21.0-32.0 [facility] Comment on above: Result Comment: Canc elled via OM: Order cancelled - Patient discharged Performed By: #### L 100.0100, L500.2500 ####[facility] [address] [place], [address] CREAT,SERUM Normal 0.55-1.02 [facility] Comment on above: Result Comment: Canc elled via OM: Order cancelled - Patient discharged Performed By: #### L 100.0100, L500.2500 ####[facility] [address] [place], [address] EST GFR Normal >60 [facility] Comment on above: Result Comment: Canc elled via OM: Order cancelled - Patient discharged Performed By: #### L 100.0100, L500.2500 ####[facility] [address] [place], [address] EST GFR - AA Normal >60 [facility] Comment on above: Result Comment: Canc elled via OM: Order cancelled - Patient discharged Performed By: #### L 100.0100, L500.2500 ####[facility] [address] [place], [address] GAP Normal 5-15 [facility] Comment on above: Result Comment: Canc elled via OM: Order cancelled - Patient discharged Performed By: #### L 100.0100, L500.2500 ####[facility] [address] [place], [address] GLU Normal 74-106 [facility] Comment on above: Result Comment: Canc elled via OM: Order cancelled - Patient discharged Performed By: #### L 100.0100, L500.2500 ####[facility] [address] [place], [address] Potassium Normal 3.5-5.1 [facility] Comment on above: Result Comment: Canc elled via OM: Order cancelled - Patient discharged Performed By: #### L 100.0100, L500.2500 ####[facility] [address] [place], [address] Basic Metabolic Profile (BMP) Normal 136-145 [facility] Comment on above: Result Comment: Canc elled via OM: Order cancelled - Patient discharged Performed By: #### L 100.0100, L500.2500 ####[facility] [address] [place], [address] CBC W/Diff, Automatedon 02- Absolute Neut Normal 2.0-7.7 [facility] Comment on above: Result Comment: Canc elled via OM: Order cancelled - Patient discharged Performed By: #### L 100.0100, L500.2500 ####[facility] [address] [place], [address] HCT Normal 37-47 [facility] Comment on above: Result Comment: Canc elled via OM: Order cancelled - Patient discharged Performed By: #### L 100.0100, L500.2500 ####[facility] [address] [place], [address] HGB Normal 12.0-15.0 [facility] Comment on above: Result Comment: Canc elled via OM: Order cancelled - Patient discharged Performed By: #### L 100.0100, L500.2500 ####[facility] [address] [place], [address] MCH Normal 27.0-32.0 [facility] Comment on above: Result Comment: Canc elled via OM: Order cancelled - Patient discharged Performed By: #### L 100.0100, L500.2500 ####[facility] [address] [place], [address] MCHC Normal 32-36 [facility] Comment on above: Result Comment: Canc elled via OM: Order cancelled - Patient discharged Performed By: #### L 100.0100, L500.2500 ####[facility] [address] [place], [address] MCV Normal 81-99 [facility] Comment on above: Result Comment: Canc elled via OM: Order cancelled - Patient discharged Performed By: #### L 100.0100, L500.2500 ####[facility] [address] [place], [address] NEUT% Normal 47-70 [facility] Comment on above: Result Comment: Canc elled via OM: Order cancelled - Patient discharged Performed By: #### L 100.0100, L500.2500 ####[facility] [address] [place], [address] PLT Normal 150-450 [facility] Comment on above: Result Comment: Canc elled via OM: Order cancelled - Patient discharged Performed By: #### L 100.0100, L500.2500 ####[facility] [address] [place], [address] RBC Normal 4.2-5.4 [facility] Comment on above: Result Comment: Canc elled via OM: Order cancelled - Patient discharged Performed By: #### L 100.0100, L500.2500 ####[facility] [address] [place], [address] RDW CV Normal 11.6-14.6 [facility] Comment on above: Result Comment: Canc elled via OM: Order cancelled - Patient discharged Performed By: #### L 100.0100, L500.2500 ####[facility] [address] [place], [address] RDW SD Normal 35.1-43.9 [facility] Comment on above: Result Comment: Canc elled via OM: Order cancelled - Patient discharged Performed By: #### L 100.0100, L500.2500 ####[facility] [address] [place], [address] WBC Normal 4.4-11.0 [facility] Comment on above: Result Comment: Canc elled via OM: Order cancelled - Patient discharged Performed By: #### L 100.0100, L500.2500 ####[facility] [address] [place], [address] Basic Metabolic Profile (BMP )on 10-24-2024 BUN Normal 7-18 [facility] Comment on above: Result Comment: Canc elled via OM: Order cancelled - Patient discharged Performed By: #### L 500.2500, L100.0100 ####[facility] [address] [place], [address] BUN/CRE Normal 10-20 [facility] Comment on above: Result Comment: Canc elled via OM: Order cancelled - Patient discharged Performed By: #### L 500.2500, L100.0100 ####[facility] [address] [place], [address] CA,Total Normal 8.5-10.1 [facility] Comment on above: Result Comment: Canc elled via OM: Order cancelled - Patient discharged Performed By: #### L 500.2500, L100.0100 ####[facility] [address] [place], [address] CL Normal 98-107 [facility] Comment on above: Result Comment: Canc elled via OM: Order cancelled - Patient discharged Performed By: #### L 500.2500, L100.0100 ####[facility] [address] [place], [address] CO2 Normal 21.0-32.0 [facility] Comment on above: Result Comment: Canc elled via OM: Order cancelled - Patient discharged Performed By: #### L 500.2500, L100.0100 ####[facility] [address] [place], [address] CREAT,SERUM Normal 0.55-1.02 [facility] Comment on above: Result Comment: Canc elled via OM: Order cancelled - Patient discharged Performed By: #### L 500.2500, L100.0100 ####[facility] [address] [place], [address] EST GFR Normal >60 [facility] Comment on above: Result Comment: Canc elled via OM: Order cancelled - Patient discharged Performed By: #### L 500.2500, L100.0100 ####[facility] [address] [place], [address] EST GFR - AA Normal >60 [facility] Comment on above: Result Comment: Canc elled via OM: Order cancelled - Patient discharged Performed By: #### L 500.2500, L100.0100 ####[facility] [address] [place], [address] GAP Normal 5-15 [facility] Comment on above: Result Comment: Canc elled via OM: Order cancelled - Patient discharged Performed By: #### L 500.2500, L100.0100 ####[facility] [address] [place], [address] GLU Normal 74-106 [facility] Comment on above: Result Comment: Canc elled via OM: Order cancelled - Patient discharged Performed By: #### L 500.2500, L100.0100 ####[facility] [address] [place], [address] Potassium Normal 3.5-5.1 [facility] Comment on above: Result Comment: Canc elled via OM: Order cancelled - Patient discharged Performed By: #### L 500.2500, L100.0100 ####[facility] [address] [place], [address] Basic Metabolic Profile (BMP) Normal 136-145 [facility] Comment on above: Result Comment: Canc elled via OM: Order cancelled - Patient discharged Performed By: #### L 500.2500, L100.0100 ####[facility] [address] [place], [address] CBC W/Diff, Automatedon 02-2 Absolute Neut Normal 2.0-7.7 [facility] Comment on above: Result Comment: Canc elled via OM: Order cancelled - Patient discharged Performed By: #### L 500.2500, L100.0100 ####[facility] [address] [place], [address] HCT Normal 37-47 [facility] Comment on above: Result Comment: Canc elled via OM: Order cancelled - Patient discharged Performed By: #### L 500.2500, L100.0100 ####[facility] [address] [place], [address] HGB Normal 12.0-15.0 [facility] Comment on above: Result Comment: Canc elled via OM: Order cancelled - Patient discharged Performed By: #### L 500.2500, L100.0100 ####[facility] [address] [place], [address] MCH Normal 27.0-32.0 [facility] Comment on above: Result Comment: Canc elled via OM: Order cancelled - Patient discharged Performed By: #### L 500.2500, L100.0100 ####[facility] [address] [place], [address] MCHC Normal 32-36 [facility] Comment on above: Result Comment: Canc elled via OM: Order cancelled - Patient discharged Performed By: #### L 500.2500, L100.0100 ####[facility] [address] [place], [address] MCV Normal 81-99 [facility] Comment on above: Result Comment: Canc elled via OM: Order cancelled - Patient discharged Performed By: #### L 500.2500, L100.0100 ####[facility] [address] [place], [address] NEUT% Normal 47-70 [facility] Comment on above: Result Comment: Canc elled via OM: Order cancelled - Patient discharged Performed By: #### L 500.2500, L100.0100 ####[facility] [address] [place], [address] PLT Normal 150-450 [facility] Comment on above: Result Comment: Canc elled via OM: Order cancelled - Patient discharged Performed By: #### L 500.2500, L100.0100 ####[facility] [address] [place], [address] RBC Normal 4.2-5.4 [facility] Comment on above: Result Comment: Canc elled via OM: Order cancelled - Patient discharged Performed By: #### L 500.2500, L100.0100 ####[facility] [address] [place], [address] RDW CV Normal 11.6-14.6 [facility] Comment on above: Result Comment: Canc elled via OM: Order cancelled - Patient discharged Performed By: #### L 500.2500, L100.0100 ####[facility] [address] [place], [address] RDW SD Normal 35.1-43.9 [facility] Comment on above: Result Comment: Canc elled via OM: Order cancelled - Patient discharged Performed By: #### L 500.2500, L100.0100 ####[facility] [address] [place], [address] WBC Normal 4.4-11.0 [facility] Comment on above: Result Comment: Canc elled via OM: Order cancelled - Patient discharged Performed By: #### L 500.2500, L100.0100 ####[facility] [address] [place], [address] Basic Metabolic Profile (BMP )on 10-23-2024 BUN Normal 7-18 [facility] Comment on above: Result Comment: Canc elled via OM: Order cancelled - Patient discharged Performed By: #### L 500.2500, L100.0100 ####[facility] [address] [place], [address] BUN/CRE Normal 10-20 [facility] Comment on above: Result Comment: Canc elled via OM: Order cancelled - Patient discharged Performed By: #### L 500.2500, L100.0100 ####[facility] [address] [place], [address] CA,Total Normal 8.5-10.1 [facility] Comment on above: Result Comment: Canc elled via OM: Order cancelled - Patient discharged Performed By: #### L 500.2500, L100.0100 ####[facility] [address] [place], [address] CL Normal 98-107 [facility] Comment on above: Result Comment: Canc elled via OM: Order cancelled - Patient discharged Performed By: #### L 500.2500, L100.0100 ####[facility] [address] [place], [address] CO2 Normal 21.0-32.0 [facility] Comment on above: Result Comment: Canc elled via OM: Order cancelled - Patient discharged Performed By: #### L 500.2500, L100.0100 ####[facility] [address] [place], [address] CREAT,SERUM Normal 0.55-1.02 [facility] Comment on above: Result Comment: Canc elled via OM: Order cancelled - Patient discharged Performed By: #### L 500.2500, L100.0100 ####[facility] [address] [place], [address] EST GFR Normal >60 [facility] Comment on above: Result Comment: Canc elled via OM: Order cancelled - Patient discharged Performed By: #### L 500.2500, L100.0100 ####[facility] [address] [place], [address] EST GFR - AA Normal >60 [facility] Comment on above: Result Comment: Canc elled via OM: Order cancelled - Patient discharged Performed By: #### L 500.2500, L100.0100 ####[facility] [address] [place], [address] GAP Normal 5-15 [facility] Comment on above: Result Comment: Canc elled via OM: Order cancelled - Patient discharged Performed By: #### L 500.2500, L100.0100 ####[facility] [address] [place], [address] GLU Normal 74-106 [facility] Comment on above: Result Comment: Canc elled via OM: Order cancelled - Patient discharged Performed By: #### L 500.2500, L100.0100 ####[facility] [address] [place], [address] Potassium Normal 3.5-5.1 [facility] Comment on above: Result Comment: Canc elled via OM: Order cancelled - Patient discharged Performed By: #### L 500.2500, L100.0100 ####[facility] [address] [place], [address] Basic Metabolic Profile (BMP) Normal 136-145 [facility] Comment on above: Result Comment: Canc elled via OM: Order cancelled - Patient discharged Performed By: #### L 500.2500, L100.0100 ####[facility] [address] [place], [address] CBC W/Diff, Automatedon 02-2 Absolute Neut Normal 2.0-7.7 [facility] Comment on above: Result Comment: Canc elled via OM: Order cancelled - Patient discharged Performed By: #### L 500.2500, L100.0100 ####[facility] [address] [place], [address] HCT Normal 37-47 [facility] Comment on above: Result Comment: Canc elled via OM: Order cancelled - Patient discharged Performed By: #### L 500.2500, L100.0100 ####[facility] [address] [place], [address] HGB Normal 12.0-15.0 [facility] Comment on above: Result Comment: Canc elled via OM: Order cancelled - Patient discharged Performed By: #### L 500.2500, L100.0100 ####[facility] [address] [place], [address] MCH Normal 27.0-32.0 [facility] Comment on above: Result Comment: Canc elled via OM: Order cancelled - Patient discharged Performed By: #### L 500.2500, L100.0100 ####[facility] [address] [place], [address] MCHC Normal 32-36 [facility] Comment on above: Result Comment: Canc elled via OM: Order cancelled - Patient discharged Performed By: #### L 500.2500, L100.0100 ####[facility] [address] [place], [address] MCV Normal 81-99 [facility] Comment on above: Result Comment: Canc elled via OM: Order cancelled - Patient discharged Performed By: #### L 500.2500, L100.0100 ####[facility] [address] [place], [address] NEUT% Normal 47-70 [facility] Comment on above: Result Comment: Canc elled via OM: Order cancelled - Patient discharged Performed By: #### L 500.2500, L100.0100 ####[facility] [address] [place], [address] PLT Normal 150-450 [facility] Comment on above: Result Comment: Canc elled via OM: Order cancelled - Patient discharged Performed By: #### L 500.2500, L100.0100 ####[facility] [address] [place], [address] RBC Normal 4.2-5.4 [facility] Comment on above: Result Comment: Canc elled via OM: Order cancelled - Patient discharged Performed By: #### L 500.2500, L100.0100 ####[facility] [address] [place], [address] RDW CV Normal 11.6-14.6 [facility] Comment on above: Result Comment: Canc elled via OM: Order cancelled - Patient discharged Performed By: #### L 500.2500, L100.0100 ####[facility] [address] [place], [address] RDW SD Normal 35.1-43.9 [facility] Comment on above: Result Comment: Canc elled via OM: Order cancelled - Patient discharged Performed By: #### L 500.2500, L100.0100 ####[facility] [address] [place], [address] WBC Normal 4.4-11.0 [facility] Comment on above: Result Comment: Canc elled via OM: Order cancelled - Patient discharged Performed By: #### L 500.2500, L100.0100 ####[facility] [address] [place], [address] Basic Metabolic Profile (BMP )on 10-22-2024 BUN Normal 7-18 [facility] Comment on above: Result Comment: Canc elled via OM: Order cancelled - Patient discharged Performed By: #### L 500.2500, L100.0100 ####[facility] [address] [place], [address] BUN/CRE Normal 10-20 [facility] Comment on above: Result Comment: Canc elled via OM: Order cancelled - Patient discharged Performed By: #### L 500.2500, L100.0100 ####[facility] [address] [place], [address] CA,Total Normal 8.5-10.1 [facility] Comment on above: Result Comment: Canc elled via OM: Order cancelled - Patient discharged Performed By: #### L 500.2500, L100.0100 ####[facility] [address] [place], [address] CL Normal 98-107 [facility] Comment on above: Result Comment: Canc elled via OM: Order cancelled - Patient discharged Performed By: #### L 500.2500, L100.0100 ####[facility] [address] [place], [address] CO2 Normal 21.0-32.0 [facility] Comment on above: Result Comment: Canc elled via OM: Order cancelled - Patient discharged Performed By: #### L 500.2500, L100.0100 ####[facility] [address] [place], [address] CREAT,SERUM Normal 0.55-1.02 [facility] Comment on above: Result Comment: Canc elled via OM: Order cancelled - Patient discharged Performed By: #### L 500.2500, L100.0100 ####[facility] [address] [place], [address] EST GFR Normal >60 [facility] Comment on above: Result Comment: Canc elled via OM: Order cancelled - Patient discharged Performed By: #### L 500.2500, L100.0100 ####[facility] [address] [place], [address] EST GFR - AA Normal >60 [facility] Comment on above: Result Comment: Canc elled via OM: Order cancelled - Patient discharged Performed By: #### L 500.2500, L100.0100 ####[facility] [address] [place], [address] GAP Normal 5-15 [facility] Comment on above: Result Comment: Canc elled via OM: Order cancelled - Patient discharged Performed By: #### L 500.2500, L100.0100 ####[facility] [address] [place], [address] GLU Normal 74-106 [facility] Comment on above: Result Comment: Canc elled via OM: Order cancelled - Patient discharged Performed By: #### L 500.2500, L100.0100 ####[facility] [address] [place], [address] Potassium Normal 3.5-5.1 [facility] Comment on above: Result Comment: Canc elled via OM: Order cancelled - Patient discharged Performed By: #### L 500.2500, L100.0100 ####[facility] [address] [place], [address] Basic Metabolic Profile (BMP) Normal 136-145 [facility] Comment on above: Result Comment: Canc elled via OM: Order cancelled - Patient discharged Performed By: #### L 500.2500, L100.0100 ####[facility] [address] [place], [address] CBC W/Diff, Automatedon 02-2 Absolute Neut Normal 2.0-7.7 [facility] Comment on above: Result Comment: Canc elled via OM: Order cancelled - Patient discharged Performed By: #### L 500.2500, L100.0100 ####[facility] [address] [place], [address] HCT Normal 37-47 [facility] Comment on above: Result Comment: Canc elled via OM: Order cancelled - Patient discharged Performed By: #### L 500.2500, L100.0100 ####[facility] [address] [place], [address] HGB Normal 12.0-15.0 [facility] Comment on above: Result Comment: Canc elled via OM: Order cancelled - Patient discharged Performed By: #### L 500.2500, L100.0100 ####[facility] [address] [place], [address] MCH Normal 27.0-32.0 [facility] Comment on above: Result Comment: Canc elled via OM: Order cancelled - Patient discharged Performed By: #### L 500.2500, L100.0100 ####[facility] [address] [place], [address] MCHC Normal 32-36 [facility] Comment on above: Result Comment: Canc elled via OM: Order cancelled - Patient discharged Performed By: #### L 500.2500, L100.0100 ####[facility] [address] [place], [address] MCV Normal 81-99 [facility] Comment on above: Result Comment: Canc elled via OM: Order cancelled - Patient discharged Performed By: #### L 500.2500, L100.0100 ####[facility] [address] [place], [address] NEUT% Normal 47-70 [facility] Comment on above: Result Comment: Canc elled via OM: Order cancelled - Patient discharged Performed By: #### L 500.2500, L100.0100 ####[facility] [address] [place], [address] PLT Normal 150-450 [facility] Comment on above: Result Comment: Canc elled via OM: Order cancelled - Patient discharged Performed By: #### L 500.2500, L100.0100 ####[facility] [address] [place], [address] RBC Normal 4.2-5.4 [facility] Comment on above: Result Comment: Canc elled via OM: Order cancelled - Patient discharged Performed By: #### L 500.2500, L100.0100 ####[facility] [address] [place], [address] RDW CV Normal 11.6-14.6 [facility] Comment on above: Result Comment: Canc elled via OM: Order cancelled - Patient discharged Performed By: #### L 500.2500, L100.0100 ####[facility] [address] [place], [address] RDW SD Normal 35.1-43.9 [facility] Comment on above: Result Comment: Canc elled via OM: Order cancelled - Patient discharged Performed By: #### L 500.2500, L100.0100 ####[facility] [address] [place], [address] WBC Normal 4.4-11.0 [facility] Comment on above: Result Comment: Canc elled via OM: Order cancelled - Patient discharged Performed By: #### L 500.2500, L100.0100 ####[facility] [address] [place], [address] Basic Metabolic Profile (BMP )on 10-21-2024 BUN/CRE 17.1 RATIO Normal 10-20 [facility] Comment on above: Performed By: #### L 500.2500, L100.0100 ####[facility] [address] [place], [address] CA,Total 9.4 mg/dL Normal 8.5-10.1 [facility] Comment on above: Performed By: #### L 500.2500, L100.0100 ####[facility] [address] [place], [address] Chloride [Moles/Vol] 97 mmol/L Low 98-107 [facility] Comment on above: Performed By: #### L 500.2500, L100.0100 ####[facility] [address] [place], [address] CO2 [Moles/Vol] 16.0 mmol/L Low 21.0-32.0 [facility] Comment on above: Performed By: #### L 500.2500, L100.0100 ####[facility] [address] [place], [address] Creatinine [Mass/Vol] 0.88 mg/dL Normal 0.55-1.02 [facility] Comment on above: Result Comment: The validity of the calculated GFR GFRAA in patients over70 years has not been determined. Clinical correlation isessential. Performed By: #### L 500.2500, L100.0100 ####[facility] [address] [place], [address] ECRCL 97.69 ml/min Normal [facility] Comment on above: Performed By: #### L 500.2500, L100.0100 ####[facility] [address] [place], [address] EST GFR - AA 97 mL/min Normal >60 [facility] Comment on above: Result Comment: Afri can Nauruan GFR Calc Performed By: #### L 500.2500, L100.0100 ####[facility] [address] [place], [address] GAP 15 Normal 5-15 [facility] Comment on above: Performed By: #### L 500.2500, L100.0100 ####[facility] [address] [place], [address] GFR/1.73 sq M.predicted among non-blacks MDRD (S/P/Bld) [Vol rate/Area] 80 mL/min/{1.73_m2} Normal >60 [facility] Comment on above: Result Comment: Non- GFR Calc Performed By: #### L 500.2500, L100.0100 ####[facility] [address] [place], [address] Glucose [Mass/Vol] 546 mg/dL Invalid Interpretation Code 74-106 [facility] Comment on above: Result Comment: Crit ical Result(s) Called at: 05:07:31 10/21/2024 by:[facility]. Results read back by same.Glucose result greater than or equal to 200 mg/dLsuggests DIABETES MELLITUS per A.D.A. criteria. Performed By: #### L 500.2500, L100.0100 ####[facility] [address] [place], [address] Potassium [Moles/Vol] 5.3 mmol/L High 3.5-5.1 [facility] Comment on above: Performed By: #### L 500.2500, L100.0100 ####[facility] [address] [place], [address] Sodium [Moles/Vol] 128 mmol/L Low 136-145 [facility] Comment on above: Performed By: #### L 500.2500, L100.0100 ####[facility] [address] [place], [address] Urea nitrogen [Mass/Vol] 15 mg/dL Normal 7-18 [facility] Comment on above: Performed By: #### L 500.2500, L100.0100 ####[facility] [address] [place], [address] Bedside Glucoseon 10-21-2024 FINGERSTICK GLU 296 mg/dL High [address] [place] [address] Comment on above: Result Comment: EDGAR GEMENT OF PATIENT CARE PER NURSING PROTOCOL Performed By: #### L 501.080 ####[facility] [address] [place], [address] FINGERSTICK GLU 187 mg/dL High [address] [place] [address] Comment on above: Result Comment: EDGAR GEMENT OF PATIENT CARE PER NURSING PROTOCOL Performed By: #### L 501.080 ####[facility] [address] [place], [address] FINGERSTICK GLU 408 mg/dL High [address] [place] [address] Comment on above: Result Comment: EDGAR GEMENT OF PATIENT CARE PER NURSING PROTOCOL Performed By: #### L 501.080 ####[facility] [address] [place], [address] FINGERSTICK GLU 481 mg/dL Invalid Interpretation Code -[address] [place] [address] Comment on above: Result Comment: Repe at TestMANAGEMENT OF PATIENT CARE PER NURSING PROTOCOL Performed By: #### L 501.080 ####[facility] [address] [place], [address] CBC W/Diff, Automatedon 09-29 Absolute Lymph 2.01 X10 3/uL Normal 0.83-4.51 [facility] Comment on above: Performed By: #### L 500.2500, L100.0100 ####[facility] [address] [place], [address] Absolute Neut 13.3 X10 3/uL High 2.0-7.7 [facility] Comment on above: Performed By: #### L 500.2500, L100.0100 ####[facility] [address] [place], [address] Basophils/100 WBC (Bld) 0.5 % Normal 0-1 [facility] Comment on above: Performed By: #### L 500.2500, L100.0100 ####[facility] [address] [place], [address] Eosinophils/100 WBC (Bld) 1.8 % Normal 0-5 [facility] Comment on above: Performed By: #### L 500.2500, L100.0100 ####[facility] [address] [place], [address] Erythrocyte distribution width (RBC) [Ratio] 12.9 % Normal 11.6-14.6 [facility] Comment on above: Performed By: #### L 500.2500, L100.0100 ####[facility] [address] [place], [address] Hematocrit (Bld) [Volume fraction] 44.3 % Normal 37-47 [facility] Comment on above: Performed By: #### L 500.2500, L100.0100 ####[facility] [address] [place], [address] Hemoglobin (Bld) [Mass/Vol] 14.3 g/dL Normal 12.0-15.0 [facility] Comment on above: Performed By: #### L 500.2500, L100.0100 ####[facility] [address] [place], [address] IG% 0.800 Normal 0.0-0.9 [facility] Comment on above: Result Comment: IG% - Immature Granulocytes (promyelocytes, myelocytes andmetamyelocytes) > 1% indicates that a LEFT SHIFT is Present. Performed By: #### L 500.2500, L100.0100 ####[facility] [address] [place], [address] Lymphocytes/100 WBC (Bld) 12.2 % Low 19-41 [facility] Comment on above: Performed By: #### L 500.2500, L100.0100 ####[facility] [address] [place], [address] MCH (RBC) [Entitic mass] 28.8 pg Normal 27.0-32.0 [facility] Comment on above: Performed By: #### L 500.2500, L100.0100 ####[facility] [address] [place], [address] MCHC (RBC) [Mass/Vol] 32.3 g/dL Normal 32-36 [facility] Comment on above: Performed By: #### L 500.2500, L100.0100 ####[facility] [address] [place], [address] MCV (RBC) [Entitic vol] 89.1 fL Normal 81-99 [facility] Comment on above: Performed By: #### L 500.2500, L100.0100 ####[facility] [address] [place], [address] Monocytes/100 WBC (Bld) 4.3 % Normal 0-10 [facility] Comment on above: Performed By: #### L 500.2500, L100.0100 ####[facility] [address] [place], [address] Neutrophils/100 WBC (Bld) 80.4 % High 47-70 [facility] Comment on above: Performed By: #### L 500.2500, L100.0100 ####[facility] [address] [place], [address] Nucleated RBC (Bld) [#/Vol] 0 10*3/uL Normal 0-5 [facility] Comment on above: Performed By: #### L 500.2500, L100.0100 ####[facility] [address] [place], [address] Platelet mean volume (Bld) [Entitic vol] 12.6 fL High 6.2-12.0 [facility] Comment on above: Performed By: #### L 500.2500, L100.0100 ####[facility] [address] [place], [address] Platelets (Bld) [#/Vol] 192 10*3/uL Normal 150-450 [facility] Comment on above: Performed By: #### L 500.2500, L100.0100 ####[facility] [address] [place], [address] RBC (Bld) [#/Vol] 4.97 10*6/uL Normal 4.2-5.4 [facility] Comment on above: Performed By: #### L 500.2500, L100.0100 ####[facility] [address] [place], [address] RDW SD 41.7 fl Normal 35.1-43.9 [facility] Comment on above: Performed By: #### L 500.2500, L100.0100 ####[facility] [address] [place], [address] WBC (Bld) [#/Vol] 16.5 10*3/uL High 4.4-11.0 [facility] Comment on above: Performed By: #### L 500.2500, L100.0100 ####[facility] [address] [place], [address] Discharge Instructionon -2 Discharge Instruction Normal [facility] Basic Metabolic Profile (BMP )on 10-20-2024 BUN/CRE 13.2 RATIO Normal 10-20 [facility] Comment on above: Performed By: #### L 500.2500, L100.0100 ####[facility] [address] [place], [address] CA,Total 8.8 mg/dL Normal 8.5-10.1 [facility] Comment on above: Performed By: #### L 500.2500, L100.0100 ####[facility] [address] [place], [address] Chloride [Moles/Vol] 104 mmol/L Normal 98-107 [facility] Comment on above: Performed By: #### L 500.2500, L100.0100 ####[facility] [address] [place], [address] CO2 [Moles/Vol] 22.0 mmol/L Normal 21.0-32.0 [facility] Comment on above: Performed By: #### L 500.2500, L100.0100 ####[facility] [address] [place], [address] Creatinine [Mass/Vol] 0.61 mg/dL Normal 0.55-1.02 [facility] Comment on above: Result Comment: The validity of the calculated GFR GFRAA in patients over70 years has not been determined. Clinical correlation isessential. Performed By: #### L 500.2500, L100.0100 ####[facility] [address] [place], [address] ECRCL 140.93 ml/min Normal [facility] Comment on above: Performed By: #### L 500.2500, L100.0100 ####[facility] [address] [place], [address] EST GFR - AA 149 mL/min Normal >60 [facility] Comment on above: Result Comment: Afri can Nauruan GFR Calc Performed By: #### L 500.2500, L100.0100 ####[facility] [address] [place], [address] GAP 8 Normal 5-15 [facility] Comment on above: Performed By: #### L 500.2500, L100.0100 ####[facility] [address] [place], [address] GFR/1.73 sq M.predicted among non-blacks MDRD (S/P/Bld) [Vol rate/Area] 123 mL/min/{1.73_m2} Normal >60 [facility] Comment on above: Result Comment: Non- GFR Calc Performed By: #### L 500.2500, L100.0100 ####[facility] [address] [place], [address] Glucose [Mass/Vol] 222 mg/dL High 74-106 [facility] Comment on above: Result Comment: Gluc ose result greater than or equal to 200 mg/dLsuggests DIABETES MELLITUS per A.D.A. criteria. Performed By: #### L 500.2500, L100.0100 ####[facility] [address] [place], [address] Potassium [Moles/Vol] 4.2 mmol/L Normal 3.5-5.1 [facility] Comment on above: Performed By: #### L 500.2500, L100.0100 ####[facility] [address] [place], [address] Sodium [Moles/Vol] 134 mmol/L Low 136-145 [facility] Comment on above: Performed By: #### L 500.2500, L100.0100 ####[facility] [address] [place], [address] Urea nitrogen [Mass/Vol] 8 mg/dL Normal 7-18 [facility] Comment on above: Performed By: #### L 500.2500, L100.0100 ####[facility] [address] [place], [address] Bedside Glucoseon 10-20-2024 FINGERSTICK GLU 94 mg/dL Normal 74-106 [facility] Comment on above: Result Comment: EDGAR HUNG OF PATIENT CARE PER NURSING PROTOCOL Performed By: #### L 501.080 ####[facility] [address] [place], [address] FINGERSTICK GLU 337 mg/dL High 74-106 [facility] Comment on above: Result Comment: EDGAR GEMENT OF PATIENT CARE PER NURSING PROTOCOL Performed By: #### L 501.080 ####[facility] [address] [place], [address] FINGERSTICK GLU 441 mg/dL High 74-106 [facility] Comment on above: Result Comment: EDGAR GEMENT OF PATIENT CARE PER NURSING PROTOCOL Performed By: #### L 501.080 ####[facility] [address] [place], [address] FINGERSTICK GLU 200 mg/dL High [address] [place] [address] Comment on above: Result Comment: EDGAR GEMENT OF PATIENT CARE PER NURSING PROTOCOL Performed By: #### L 501.080 ####[facility] [address] [place], [address] FINGERSTICK GLU 90 mg/dL Normal -106 [facility] Comment on above: Result Comment: EDGAR GEMENT OF PATIENT CARE PER NURSING PROTOCOL Performed By: #### L 501.080 ####[facility] [address] [place], [address] FINGERSTICK GLU 182 mg/dL High 74-106 [facility] Comment on above: Result Comment: EDGAR GEMENT OF PATIENT CARE PER NURSING PROTOCOL Performed By: #### L 501.080 ####[facility] [address] [place], [address] FINGERSTICK GLU 303 mg/dL High [facility]106 [facility] Comment on above: Result Comment: EDGAR GEMENT OF PATIENT CARE PER NURSING PROTOCOL Performed By: #### L 501.080 ####[facility] [address] [place], [address] CBC W/Diff, Automatedon 02 Absolute Lymph 2.82 X10 3/uL Normal 0.83-4.51 [facility] Comment on above: Performed By: #### L 500.2500, L100.0100 ####[facility] [address] [place], [address] Absolute Neut 6.3 X10 3/uL Normal 2.0-7.7 [facility] Comment on above: Performed By: #### L 500.2500, L100.0100 ####[facility] [address] [place], [address] Basophils/100 WBC (Bld) 0.4 % Normal 0-1 [facility] Comment on above: Performed By: #### L 500.2500, L100.0100 ####[facility] [address] [place], [address] Eosinophils/100 WBC (Bld) 3.1 % Normal 0-5 [facility] Comment on above: Performed By: #### L 500.2500, L100.0100 ####[facility] [address] [place], [address] Erythrocyte distribution width (RBC) [Ratio] 13.0 % Normal 11.6-14.6 [facility] Comment on above: Performed By: #### L 500.2500, L100.0100 ####[facility] [address] [place], [address] Hematocrit (Bld) [Volume fraction] 40.2 % Normal 37-47 [facility] Comment on above: Performed By: #### L 500.2500, L100.0100 ####[facility] [address] [place], [address] Hemoglobin (Bld) [Mass/Vol] 13.0 g/dL Normal 12.0-15.0 [facility] Comment on above: Performed By: #### L 500.2500, L100.0100 ####[facility] [address] [place], [address] IG% 0.700 Normal 0.0-0.9 [facility] Comment on above: Result Comment: IG% - Immature Granulocytes (promyelocytes, myelocytes andmetamyelocytes) > 1% indicates that a LEFT SHIFT is Present. Performed By: #### L 500.2500, L100.0100 ####[facility] [address] [place], [address] Lymphocytes/100 WBC (Bld) 27.9 % Normal 19-41 [facility] Comment on above: Performed By: #### L 500.2500, L100.0100 ####[facility] [address] [place], [address] MCH (RBC) [Entitic mass] 28.6 pg Normal 27.0-32.0 [facility] Comment on above: Performed By: #### L 500.2500, L100.0100 ####[facility] [address] [place], [address] MCHC (RBC) [Mass/Vol] 32.3 g/dL Normal 32-36 [facility] Comment on above: Performed By: #### L 500.2500, L100.0100 ####[facility] [address] [place], [address] MCV (RBC) [Entitic vol] 88.5 fL Normal 81-99 [facility] Comment on above: Performed By: #### L 500.2500, L100.0100 ####[facility] [address] [place], [address] Monocytes/100 WBC (Bld) 5.5 % Normal 0-10 [facility] Comment on above: Performed By: #### L 500.2500, L100.0100 ####[facility] [address] [place], [address] Neutrophils/100 WBC (Bld) 62.4 % Normal 47-70 [facility] Comment on above: Performed By: #### L 500.2500, L100.0100 ####[facility] [address] [place], [address] Nucleated RBC (Bld) [#/Vol] 0 10*3/uL Normal 0-5 [facility] Comment on above: Performed By: #### L 500.2500, L100.0100 ####[facility] [address] [place], [address] Platelet mean volume (Bld) [Entitic vol] 12.5 fL High 6.2-12.0 [facility] Comment on above: Performed By: #### L 500.2500, L100.0100 ####[facility] [address] [place], [address] Platelets (Bld) [#/Vol] 158 10*3/uL Normal 150-450 [facility] Comment on above: Performed By: #### L 500.2500, L100.0100 ####[facility] [address] [place], [address] RBC (Bld) [#/Vol] 4.54 10*6/uL Normal 4.2-5.4 [facility] Comment on above: Performed By: #### L 500.2500, L100.0100 ####[facility] [address] [place], [address] RDW SD 42.4 fl Normal 35.1-43.9 [facility] Comment on above: Performed By: #### L 500.2500, L100.0100 ####[facility] [address] [place], [address] WBC (Bld) [#/Vol] 10.1 10*3/uL Normal 4.4-11.0 [facility] Comment on above: Performed By: #### L 500.2500, L100.0100 ####[facility] [address] [place], [address] Urine Cultureon 10-20-2024 [facility] Mixed Gram Positive Organisms Bristol Count 11,000-25,000 MIXC Mixed contaminants. Submit a new specimen if indicated. Normal [facility] Comment on above: Performed By: #### M 100.2200 ####[facility] [address] [place], [address] Bedside Glucoseon 10-19-2024 FINGERSTICK GLU 246 mg/dL High 74-106 [facility] Comment on above: Result Comment: EDGAR GEMENT OF PATIENT CARE PER NURSING PROTOCOL Performed By: #### L 501.080 ####[facility] [address] [place], [address] FINGERSTICK GLU 85 mg/dL Normal -[address] [place] [address] Comment on above: Result Comment: EDGAR GEMENT OF PATIENT CARE PER NURSING PROTOCOL Performed By: #### L 501.080 ####[facility] [address] [place], [address] FINGERSTICK GLU 35 mg/dL Invalid Interpretation Code 74-[address] [place] [address] Comment on above: Result Comment: EDGAR GEMENT OF PATIENT CARE PER NURSING PROTOCOL Performed By: #### L 501.080 ####[facility] [address] [place], [address] FINGERSTICK GLU 64 mg/dL Low -[address] [place] [address] Comment on above: Result Comment: EDGAR GEMENT OF PATIENT CARE PER NURSING PROTOCOL Performed By: #### L 501.080 ####[facility] [address] [place], [address] FINGERSTICK GLU 156 mg/dL High [address] [place] [address] Comment on above: Result Comment: EDGAR GEMENT OF PATIENT CARE PER NURSING PROTOCOL Performed By: #### L 501.080 ####[facility] [address] [place], [address] FINGERSTICK GLU 53 mg/dL Low 74-106 [facility] Comment on above: Result Comment: EDGAR GEMENT OF PATIENT CARE PER NURSING PROTOCOL Performed By: #### L 501.080 ####[facility] [address] [place], [address] FINGERSTICK GLU 40 mg/dL Invalid Interpretation Code 74-106 [facility] Comment on above: Result Comment: [facility] k GivenMANAGEMENT OF PATIENT CARE PER NURSING PROTOCOL Performed By: #### L 501.080 ####[facility] [address] [place], [address] FINGERSTICK GLU 235 mg/dL High 74-106 [facility] Comment on above: Result Comment: EDGAR GEMENT OF PATIENT CARE PER NURSING PROTOCOL Performed By: #### L 501.080 ####[facility] [address] [place], [address] FINGERSTICK GLU 52 mg/dL Low 74-106 [facility] Comment on above: Result Comment: EDGAR GEMENT OF PATIENT CARE PER NURSING PROTOCOL Performed By: #### L 501.080 ####[facility] [address] [place], [address] FINGERSTICK GLU 132 mg/dL High 74-106 [facility] Comment on above: Result Comment: EDGAR GEMENT OF PATIENT CARE PER NURSING PROTOCOL Performed By: #### L 501.080 ####[facility] [address] [place], [address] CBC W/Diff, Automatedon - Absolute Lymph 3.09 X10 3/uL Normal 0.83-4.51 [facility] Comment on above: Performed By: #### L 500.4050, L100.0100 ####[facility] [address] [place], [address] Absolute Neut 6.9 X10 3/uL Normal 2.0-7.7 [facility] Comment on above: Performed By: #### L 500.4050, L100.0100 ####[facility] [address] [place], [address] Basophils/100 WBC (Bld) 0.5 % Normal 0-1 [facility] Comment on above: Performed By: #### L 500.4050, L100.0100 ####[facility] [address] [place], [address] Eosinophils/100 WBC (Bld) 1.8 % Normal 0-5 [facility] Comment on above: Performed By: #### L 500.4050, L100.0100 ####[facility] [address] [place], [address] Erythrocyte distribution width (RBC) [Ratio] 13.2 % Normal 11.6-14.6 [facility] Comment on above: Performed By: #### L 500.4050, L100.0100 ####[facility] [address] [place], [address] Hematocrit (Bld) [Volume fraction] 37.6 % Normal 37-47 [facility] Comment on above: Performed By: #### L 500.4050, L100.0100 ####[facility] [address] [place], [address] Hemoglobin (Bld) [Mass/Vol] 12.5 g/dL Normal 12.0-15.0 [facility] Comment on above: Performed By: #### L 500.4050, L100.0100 ####[facility] [address] [place], [address] IG% 0.800 Normal 0.0-0.9 [facility] Comment on above: Result Comment: IG% - Immature Granulocytes (promyelocytes, myelocytes andmetamyelocytes) > 1% indicates that a LEFT SHIFT is Present. Performed By: #### L 500.4050, L100.0100 ####[facility] [address] [place], [address] Lymphocytes/100 WBC (Bld) 27.9 % Normal 19-41 [facility] Comment on above: Performed By: #### L 500.4050, L100.0100 ####[facility] [address] [place], [address] MCH (RBC) [Entitic mass] 29.3 pg Normal 27.0-32.0 [facility] Comment on above: Performed By: #### L 500.4050, L100.0100 ####[facility] [address] [place], [address] MCHC (RBC) [Mass/Vol] 33.2 g/dL Normal 32-36 [facility] Comment on above: Performed By: #### L 500.4050, L100.0100 ####[facility] [address] [place], [address] MCV (RBC) [Entitic vol] 88.1 fL Normal 81-99 [facility] Comment on above: Performed By: #### L 500.4050, L100.0100 ####[facility] [address] [place], [address] Monocytes/100 WBC (Bld) 6.8 % Normal 0-10 [facility] Comment on above: Performed By: #### L 500.4050, L100.0100 ####[facility] [address] [place], [address] Neutrophils/100 WBC (Bld) 62.2 % Normal 47-70 [facility] Comment on above: Performed By: #### L 500.4050, L100.0100 ####[facility] [address] [place], [address] Nucleated RBC (Bld) [#/Vol] 0 10*3/uL Normal 0-5 [facility] Comment on above: Performed By: #### L 500.4050, L100.0100 ####[facility] [address] [place], [address] Platelet mean volume (Bld) [Entitic vol] 12.0 fL Normal 6.2-12.0 [facility] Comment on above: Performed By: #### L 500.4050, L100.0100 ####[facility] [address] [place], [address] Platelets (Bld) [#/Vol] 149 10*3/uL Low 150-450 [facility] Comment on above: Performed By: #### L 500.4050, L100.0100 ####[facility] [address] [place], [address] RBC (Bld) [#/Vol] 4.27 10*6/uL Normal 4.2-5.4 [facility] Comment on above: Performed By: #### L 500.4050, L100.0100 ####[facility] [address] [place], [address] RDW SD 42.4 fl Normal 35.1-43.9 [facility] Comment on above: Performed By: #### L 500.4050, L100.0100 ####[facility] [address] [place], [address] WBC (Bld) [#/Vol] 11.1 10*3/uL High 4.4-11.0 [facility] Comment on above: Performed By: #### L 500.4050, L100.0100 ####[facility] [address] [place], [address] Comprehensive Metabolic Prof ilon 10-19-2024 Albumin [Mass/Vol] 3.0 g/dL Low 3.2-5.0 [facility] Comment on above: Performed By: #### L 500.4050, L100.0100 ####[facility] [address] [place], [address] Albumin/Globulin [Mass ratio] 0.9 {ratio} Normal 0.9-2.4 [facility] Comment on above: Performed By: #### L 500.4050, L100.0100 ####[facility] [address] [place], [address] ALK P 67 U/L Normal 45-117 [facility] Comment on above: Performed By: #### L 500.4050, L100.0100 ####[facility] [address] [place], [address] ALT [Catalytic activity/Vol] 21 U/L Normal 13-56 [facility] Comment on above: Performed By: #### L 500.4050, L100.0100 ####[facility] [address] [place], [address] AST [Catalytic activity/Vol] 13 U/L Low 15-37 [facility] Comment on above: Performed By: #### L 500.4050, L100.0100 ####[facility] [address] [place], [address] Bilirubin [Mass/Vol] 0.40 mg/dL Normal 0.20-1.00 [facility] Comment on above: Result Comment: For patients on eltrombopag therapy, use of Dimension Ivor TBIL is not recommended. Performed By: #### L 500.4050, L100.0100 ####[facility] [address] [place], [address] BUN/CRE 14.4 RATIO Normal 10-20 [facility] Comment on above: Performed By: #### L 500.4050, L100.0100 ####[facility] [address] [place], [address] CA,Total 8.2 mg/dL Low 8.5-10.1 [facility] Comment on above: Performed By: #### L 500.4050, L100.0100 ####[facility] [address] [place], [address] Chloride [Moles/Vol] 112 mmol/L High 98-107 [facility] Comment on above: Performed By: #### L 500.4050, L100.0100 ####[facility] [address] [place], [address] CO2 [Moles/Vol] 21.0 mmol/L Normal 21.0-32.0 [facility] Comment on above: Performed By: #### L 500.4050, L100.0100 ####[facility] [address] [place], [address] Creatinine [Mass/Vol] 0.55 mg/dL Normal 0.55-1.02 [facility] Comment on above: Result Comment: The validity of the calculated GFR GFRAA in patients over70 years has not been determined. Clinical correlation isessential. Performed By: #### L 500.4050, L100.0100 ####[facility] [address] [place], [address] ECRCL 156.31 ml/min Normal [facility] Comment on above: Performed By: #### L 500.4050, L100.0100 ####[facility] [address] [place], [address] EST GFR - AA 165 mL/min Normal >60 [facility] Comment on above: Result Comment: Afri can Nauruan GFR Calc Performed By: #### L 500.4050, L100.0100 ####[facility] [address] [place], [address] GAP 8 Normal 5-15 [facility] Comment on above: Performed By: #### L 500.4050, L100.0100 ####[facility] [address] [place], [address] GFR/1.73 sq M.predicted among non-blacks MDRD (S/P/Bld) [Vol rate/Area] 137 mL/min/{1.73_m2} Normal >60 [facility] Comment on above: Result Comment: Non- GFR Calc Performed By: #### L 500.4050, L100.0100 ####[facility] [address] [place], [address] Globulin (S) [Mass/Vol] 3.2 g/dL Normal 2.2-4.2 [facility] Comment on above: Performed By: #### L 500.4050, L100.0100 ####[facility] [address] [place], [address] Glucose [Mass/Vol] 49 mg/dL Low 74-106 [facility] Comment on above: Result Comment: Gluc ose result less than 50 mg/dL suggests HYPOGLYCEMIA. Performed By: #### L 500.4050, L100.0100 ####[facility] [address] [place], [address] Potassium [Moles/Vol] 3.7 mmol/L Normal 3.5-5.1 [facility] Comment on above: Performed By: #### L 500.4050, L100.0100 ####[facility] [address] [place], [address] Sodium [Moles/Vol] 140 mmol/L Normal 136-145 [facility] Comment on above: Performed By: #### L 500.4050, L100.0100 ####[facility] [address] [place], [address] T PROT 6.2 g/dL Low 6.4-8.2 [facility] Comment on above: Performed By: #### L 500.4050, L100.0100 ####[facility] [address] [place], [address] Urea nitrogen [Mass/Vol] 8 mg/dL Normal 7-18 [facility] Comment on above: Performed By: #### L 500.4050, L100.0100 ####[facility] [address] [place], [address] Glucoseon 10-19-2024 Glucose [Mass/Vol] 231 mg/dL High 74-106 [facility] Comment on above: Result Comment: Gluc ose result greater than or equal to 200 mg/dLsuggests DIABETES MELLITUS per A.D.A. criteria. Performed By: #### L 501.0100 ####[facility] [address] [place], [address] Glucose [Mass/Vol] 88 mg/dL Normal 74-106 [facility] Comment on above: Performed By: #### L 501.0100 ####[facility] [address] [place], [address] 12 Lead EKGon 10-18-2024 12 Lead EKG Normal [facility] Abdomen/Pelvis W IV Cont ONL Yon 10-18-2024 Abdomen/Pelvis W IV Cont ONLY Normal [facility] Acetone Serumon 10-18-2024 ACETONE SERUM Negative Normal NEG [facility] Comment on above: Performed By: #### L 501.6900 ####[facility] [address] [place], [address] Bedside Glucoseon 10-18-2024 FINGERSTICK GLU 85 mg/dL Normal 74-106 [facility] Comment on above: Result Comment: EDGAR HUNG OF PATIENT CARE PER NURSING PROTOCOL Performed By: #### L 501.080 ####[facility] [address] [place], [address] FINGERSTICK GLU 100 mg/dL Normal 74-106 [facility] Comment on above: Result Comment: EDGAR GEMENT OF PATIENT CARE PER NURSING PROTOCOL Performed By: #### L 501.080 ####[facility] [address] [place], [address] FINGERSTICK GLU 62 mg/dL Low 74-106 [facility] Comment on above: Result Comment: EDGAR GEMENT OF PATIENT CARE PER NURSING PROTOCOL Performed By: #### L 501.080 ####[facility] [address] [place], [address] CBC W/Diff, Automatedon 02- Absolute Lymph 1.82 X10 3/uL Normal 0.83-4.51 [facility] Comment on above: Performed By: #### L 500.4050, L100.0100, L700.6800, L501.2450 ####[facility] [address] [place], [address] Absolute Neut 14.0 X10 3/uL High 2.0-7.7 [facility] Comment on above: Performed By: #### L 500.4050, L100.0100, L700.6800, L501.2450 ####[facility] [address] [place], [address] Basophils/100 WBC (Bld) 0.2 % Normal 0-1 [facility] Comment on above: Performed By: #### L 500.4050, L100.0100, L700.6800, L501.2450 ####[facility] [address] [place], [address] Eosinophils/100 WBC (Bld) 0.2 % Normal 0-5 [facility] Comment on above: Performed By: #### L 500.4050, L100.0100, L700.6800, L501.2450 ####[facility] [address] [place], [address] Erythrocyte distribution width (RBC) [Ratio] 13.1 % Normal 11.6-14.6 [facility] Comment on above: Performed By: #### L 500.4050, L100.0100, L700.6800, L501.2450 ####[facility] [address] [place], [address] Hematocrit (Bld) [Volume fraction] 38.8 % Normal 37-47 [facility] Comment on above: Performed By: #### L 500.4050, L100.0100, L700.6800, L501.2450 ####[facility] [address] [place], [address] Hemoglobin (Bld) [Mass/Vol] 12.9 g/dL Normal 12.0-15.0 [facility] Comment on above: Performed By: #### L 500.4050, L100.0100, L700.6800, L501.2450 ####[facility] [address] [place], [address] IG% 0.600 Normal 0.0-0.9 [facility] Comment on above: Result Comment: IG% - Immature Granulocytes (promyelocytes, myelocytes andmetamyelocytes) > 1% indicates that a LEFT SHIFT is Present. Performed By: #### L 500.4050, L100.0100, L700.6800, L501.2450 ####[facility] [address] [place], [address] Lymphocytes/100 WBC (Bld) 10.7 % Low 19-41 [facility] Comment on above: Performed By: #### L 500.4050, L100.0100, L700.6800, L501.2450 ####[facility] [address] [place], [address] MCH (RBC) [Entitic mass] 29.3 pg Normal 27.0-32.0 [facility] Comment on above: Performed By: #### L 500.4050, L100.0100, L700.6800, L501.2450 ####[facility] [address] [place], [address] MCHC (RBC) [Mass/Vol] 33.2 g/dL Normal 32-36 [facility] Comment on above: Performed By: #### L 500.4050, L100.0100, L700.6800, L501.2450 ####[facility] [address] [place], [address] MCV (RBC) [Entitic vol] 88.2 fL Normal 81-99 [facility] Comment on above: Performed By: #### L 500.4050, L100.0100, L700.6800, L501.2450 ####[facility] [address] [place], [address] Monocytes/100 WBC (Bld) 6.1 % Normal 0-10 [facility] Comment on above: Performed By: #### L 500.4050, L100.0100, L700.6800, L501.2450 ####[facility] [address] [place], [address] Neutrophils/100 WBC (Bld) 82.2 % High 47-70 [facility] Comment on above: Performed By: #### L 500.4050, L100.0100, L700.6800, L501.2450 ####[facility] [address] [place], [address] Nucleated RBC (Bld) [#/Vol] 0 10*3/uL Normal 0-5 [facility] Comment on above: Performed By: #### L 500.4050, L100.0100, L700.6800, L501.2450 ####[facility] [address] [place], [address] Platelet mean volume (Bld) [Entitic vol] 12.3 fL High 6.2-12.0 [facility] Comment on above: Performed By: #### L 500.4050, L100.0100, L700.6800, L501.2450 ####[facility] [address] [place], [address] Platelets (Bld) [#/Vol] 166 10*3/uL Normal 150-450 [facility] Comment on above: Performed By: #### L 500.4050, L100.0100, L700.6800, L501.2450 ####[facility] [address] [place], [address] RBC (Bld) [#/Vol] 4.40 10*6/uL Normal 4.2-5.4 [facility] Comment on above: Performed By: #### L 500.4050, L100.0100, L700.6800, L501.2450 ####[facility] [address] [place], [address] RDW SD 42.5 fl Normal 35.1-43.9 [facility] Comment on above: Performed By: #### L 500.4050, L100.0100, L700.6800, L501.2450 ####[facility] [address] [place], [address] WBC (Bld) [#/Vol] 17.1 10*3/uL High 4.4-11.0 [facility] Comment on above: Performed By: #### L 500.4050, L100.0100, L700.6800, L501.2450 ####[facility] [address] [place], [address] Comprehensive Metabolic Prof [facility] 10-18-2024 Albumin [Mass/Vol] 3.7 g/dL Normal 3.2-5.0 [facility] Comment on above: Performed By: #### L 500.4050, L100.0100, L700.6800, L501.2450 ####[facility] [address] [place], [address] Albumin/Globulin [Mass ratio] 1.1 {ratio} Normal 0.9-2.4 [facility] Comment on above: Performed By: #### L 500.4050, L100.0100, L700.6800, L501.2450 ####[facility] [address] [place], [address] ALK P 84 U/L Normal 45-117 [facility] Comment on above: Performed By: #### L 500.4050, L100.0100, L700.6800, L501.2450 ####[facility] [address] [place], [address] ALT [Catalytic activity/Vol] 24 U/L Normal 13-56 [facility] Comment on above: Performed By: #### L 500.4050, L100.0100, L700.6800, L501.2450 ####[facility] [address] [place], [address] AST [Catalytic activity/Vol] 14 U/L Low 15-37 [facility] Comment on above: Performed By: #### L 500.4050, L100.0100, L700.6800, L501.2450 ####[facility] [address] [place], [address] Bilirubin [Mass/Vol] 0.40 mg/dL Normal 0.20-1.00 [facility] Comment on above: Result Comment: For patients on eltrombopag therapy, use of Dimension Ivor TBIL is not recommended. Performed By: #### L 500.4050, L100.0100, L700.6800, L501.2450 ####[facility] [address] [place], [address] BUN/CRE 19.7 RATIO Normal 10-20 [facility] Comment on above: Performed By: #### L 500.4050, L100.0100, L700.6800, L501.2450 ####[facility] [address] [place], [address] CA,Total 9.4 mg/dL Normal 8.5-10.1 [facility] Comment on above: Performed By: #### L 500.4050, L100.0100, L700.6800, L501.2450 ####[facility] [address] [place], [address] Chloride [Moles/Vol] 109 mmol/L High 98-107 [facility] Comment on above: Performed By: #### L 500.4050, L100.0100, L700.6800, L501.2450 ####[facility] [address] [place], [address] CO2 [Moles/Vol] 25.0 mmol/L Normal 21.0-32.0 [facility] Comment on above: Performed By: #### L 500.4050, L100.0100, L700.6800, L501.2450 ####[facility] [address] [place], [address] Creatinine [Mass/Vol] 0.76 mg/dL Normal 0.55-1.02 [facility] Comment on above: Result Comment: The validity of the calculated GFR GFRAA in patients over70 years has not been determined. Clinical correlation isessential. Performed By: #### L 500.4050, L100.0100, L700.6800, L501.2450 ####[facility] [address] [place], [address] ECRCL 123.05 ml/min Normal [facility] Comment on above: Performed By: #### L 500.4050, L100.0100, L700.6800, L501.2450 ####[facility] [address] [place], [address] EST GFR - AA 115 mL/min Normal >60 [facility] Comment on above: Result Comment: Afri can Nauruan GFR Calc Performed By: #### L 500.4050, L100.0100, L700.6800, L501.2450 ####[facility] [address] [place], [address] GAP 5 Normal 5-15 [facility] Comment on above: Performed By: #### L 500.4050, L100.0100, L700.6800, L501.2450 ####[facility] [address] [place], [address] GFR/1.73 sq M.predicted among non-blacks MDRD (S/P/Bld) [Vol rate/Area] 95 mL/min/{1.73_m2} Normal >60 [facility] Comment on above: Result Comment: Non- GFR Calc Performed By: #### L 500.4050, L100.0100, L700.6800, L501.2450 ####[facility] [address] [place], [address] Globulin (S) [Mass/Vol] 3.4 g/dL Normal 2.2-4.2 [facility] Comment on above: Performed By: #### L 500.4050, L100.0100, L700.6800, L501.2450 ####[facility] [address] [place], [address] Glucose [Mass/Vol] 116 mg/dL High 74-106 [facility] Comment on above: Result Comment: Fast ing Glucose result from 100 to 125 mg/dLsuggests IMPAIRED HOMEOSTASIS per A.D.A. criteria. Performed By: #### L 500.4050, L100.0100, L700.6800, L501.2450 ####[facility] [address] [place], [address] Potassium [Moles/Vol] 4.0 mmol/L Normal 3.5-5.1 [facility] Comment on above: Performed By: #### L 500.4050, L100.0100, L700.6800, L501.2450 ####[facility] [address] [place], [address] Sodium [Moles/Vol] 139 mmol/L Normal 136-145 [facility] Comment on above: Performed By: #### L 500.4050, L100.0100, L700.6800, L501.2450 ####[facility] [address] [place], [address] T PROT 7.1 g/dL Normal 6.4-8.2 [facility] Comment on above: Performed By: #### L 500.4050, L100.0100, L700.6800, L501.2450 ####[facility] [address] [place], [address] Urea nitrogen [Mass/Vol] 15 mg/dL Normal 7-18 [facility] Comment on above: Performed By: #### L 500.4050, L100.0100, L700.6800, L501.2450 ####[facility] [address] [place], [address] Emergency Department Summary on 10-18-2024 Emergency Department Summary Normal [facility] H AND P Exam - Hospitaliston 10-18-2024 H&P Exam - Hospitalist Normal [facility] Lactic Acidon 10-18-2024 Lactate [Moles/Vol] 1.4 mmol/L Normal 0.4-1.9 [facility] Comment on above: Order Comment: Y Performed By: #### L 503.6005, L700.6800 ####[facility] [address] [place], [address] Lipaseon 10-18-2024 Lipase [Catalytic activity/Vol] 18 U/L Low 73-393 [facility] Comment on above: Performed By: #### L 500.4050, L100.0100, L700.6800, L501.2450 ####[facility] [address] [place], [address] M100.678on 10-18-2024 M100.678 SARS-CoV-2 (COVID 19 ) Negative INFLUENZA A Negative INFLUENZA B Negative RSV PCR Negative Normal [facility] Comment on above: Performed By: #### M 100.678 ####[facility] [address] [place], [address] Magnesiumon 10-18-2024 Magnesium [Mass/Vol] 1.8 mg/dL Normal 1.6-2.6 [facility] Comment on above: Order Comment: Comme nts: May add to ED labsComments: may add to ED labs Performed By: #### L 501.5200, L501.2300, L509.7000 ####[facility] [address] [place], [address] Phosphoruson 10-18-2024 Phosphate [Mass/Vol] 3.3 mg/dL Normal 2.5-4.9 [facility] Comment on above: Order Comment: Comme nts: May add to ED labsComments: may add to ED labs Performed By: #### L 501.5200, L501.2300, L509.7000 ####[facility] [address] [place], [address] ,Serum,hCG Quali.on 10-18-2024 HCG, SERUM QUAL Negative Normal [facility] Comment on above: Performed By: #### L 500.4050, L100.0100, L700.6800, L501.2450 ####[facility] [address] [place], [address] HCG, SERUM QUAL Normal [facility] Comment on above: Result Comment: Canc elled via OM: MD Ordered Performed By: #### L 503.6005, L700.6800 ####[facility] [address] [place], [address] INTERNAL QC OK? Normal [facility] Comment on above: Result Comment: Canc elled via OM: MD Ordered Performed By: #### L 503.6005, L700.6800 ####[facility] [address] [place], [address] RECORD KIT LOT# [facility] Comment on above: Result Comment: Canc elled via OM: MD Ordered Performed By: #### L 503.6005, L700.6800 ####[facility] [address] [place], [address] Procalcitoninon 10-18-2024 Procalcitonin 0.07 ng/mL Normal 0.00-0.09 [facility] Comment on above: Result Comment: A [...] Performed By: #### L 501.5200, L501.2300, L509.7000 ####[facility] [address] [place], [address] Urinalysis, Completeon 10-18 BACTERIA 1+ /hpf Normal None Seen [facility] Comment on above: Order Comment: CLEAN CATCH Performed By: #### L 400.0001 ####[facility] [address] [place], [address] EPI,SQUAMOUS 0-5 SEEN Normal 5-10 [facility] Comment on above: Order Comment: CLEAN CATCH Performed By: #### L 400.0001 ####[facility] [address] [place], [address] Mucus Ql (Urine sed) 1+ /hpf Normal [facility] Comment on above: Order Comment: CLEAN CATCH Performed By: #### L 400.0001 ####[facility] [address] [place], [address] RBC 5-10 SEEN Normal 0-5 [facility] Comment on above: Order Comment: CLEAN CATCH Performed By: #### L 400.0001 ####[facility] [address] [place], [address] WBC 10-25 SEEN Normal 0-5 [facility] Comment on above: Order Comment: CLEAN CATCH Performed By: #### L 400.0001 ####[facility] [address] [place], [address] Venous Blood Gason 5 Blood Gas Type ISABELLE Normal [facility] Comment on above: Performed By: #### L 9000.0810 ####[facility] [address] [place], [address] CO2 [Moles/Vol] 26 mmol/L Normal 23-33 [facility] Comment on above: Performed By: #### L 9000.0810 ####[facility] [address] [place], [address] HCO3 (Bld) [Moles/Vol] 25 mmol/L Normal 22-26 [facility] Comment on above: Performed By: #### L 9000.0810 ####[facility] [address] [place], [address] O2 Delivery Dev Room Air Normal [facility] Comment on above: Performed By: #### L 9000.0810 ####[facility] [address] [place], [address] SITE Not entered Normal [facility] Comment on above: Performed By: #### L 9000.0810 ####[facility] [address] [place], [address] VBG BE 0 mmol/L Normal -1.0-3.5 [facility] Comment on above: Performed By: #### L 9000.0810 ####[facility] [address] [place], [address] VBG pCO2 41.6 mmHg Normal 41-51 [facility] Comment on above: Performed By: #### L 9000.0810 ####[facility] [address] [place], [address] VBG pH 7.38 Normal 7.32-7.42 [facility] Comment on above: Performed By: #### L 9000.0810 ####[facility] [address] [place], [address] VBG PO2 32 mmHg Normal 25-40 [facility] Comment on above: Performed By: #### L 9000.0810 ####[facility] [address] [place], [address] VBG SO2 59 Normal 50-70 [facility] Comment on above: Performed By: #### L 9000.0810 ####[facility] [address] [place], [address] Dipak 10-02-2024 GIOVANA Telephone (ENDOIN) DAISYKATHLEEN Swain ([id number]) 1995 F CHT Date Time Provider Department 10/02/24 JESSICA GUERRERO During your visit today, we recorded the following information about you: Nichole Quinteros 10/02/2024 9:53 AM Signed Patient has been identified by name and date of : Yes Type of form: [facility] Medical Physician Order for Insulin Pump Therapy and Diabetes Testing Form received via: abstract When form is completed, fax form to fax number provided. Form has been forwarded to: Provider's mailbox. Provider name: FRIEDA Urena Diamond, STIVEN 10/02/2024 2:45 PM Signed Clinical notes and DWO for infusion supplies placed on providers desk to review and advise. To be faxed to [facility] Medical [phone] Jessica Guerrero APRN.CNP 10/02/2024 3:09 PM Signed Form signed. Jessica Guerrero APRN.Estrellita Viera, STIVEN 10/10/2024 11:49 AM Signed Form re-faxed per [facility] request Allergies As of Date: 10/02/2024 [...] Units subcutaneously every 24 hours. 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 Normal [facility] Basic Metabolic Profile (BMP )on 09-02-2024 BUN/CRE 16.2 RATIO Normal 10-20 [facility] Comment on above: Performed By: #### L 500.2500, L100.0100 ####[facility] [address] [place], [address] CA,Total 9.2 mg/dL Normal 8.5-10.1 [facility] Comment on above: Performed By: #### L 500.2500, L100.0100 ####[facility] [address] [place], [address] Chloride [Moles/Vol] 112 mmol/L High 98-107 [facility] Comment on above: Performed By: #### L 500.2500, L100.0100 ####[facility] [address] [place], [address] CO2 [Moles/Vol] 21.0 mmol/L Normal 21.0-32.0 [facility] Comment on above: Performed By: #### L 500.2500, L100.0100 ####[facility] [address] [place], [address] Creatinine [Mass/Vol] 0.86 mg/dL Normal 0.55-1.02 [facility] Comment on above: Result Comment: The validity of the calculated GFR GFRAA in patients over70 years has not been determined. Clinical correlation isessential. Performed By: #### L 500.2500, L100.0100 ####[facility] [address] [place], [address] ECRCL 99.96 ml/min Normal [facility] Comment on above: Performed By: #### L 500.2500, L100.0100 ####[facility] [address] [place], [address] EST GFR - AA 99 mL/min Normal >60 [facility] Comment on above: Result Comment: Afri can Nauruan GFR Calc Performed By: #### L 500.2500, L100.0100 ####[facility] [address] [place], [address] GAP 10 Normal 5-15 [facility] Comment on above: Performed By: #### L 500.2500, L100.0100 ####[facility] [address] [place], [address] GFR/1.73 sq M.predicted among non-blacks MDRD (S/P/Bld) [Vol rate/Area] 82 mL/min/{1.73_m2} Normal >60 [facility] Comment on above: Result Comment: Non- GFR Calc Performed By: #### L 500.2500, L100.0100 ####[facility] [address] [place], [address] Glucose [Mass/Vol] 129 mg/dL High 74-106 [facility] Comment on above: Result Comment: Fast ing Glucose result greater than or equal to 126 mg/dLsuggests DIABETES MELLITUS per A.D.A. criteria. Performed By: #### L 500.2500, L100.0100 ####[facility] [address] [place], [address] Potassium [Moles/Vol] 3.0 mmol/L Low 3.5-5.1 [facility] Comment on above: Performed By: #### L 500.2500, L100.0100 ####[facility] [address] [place], [address] Sodium [Moles/Vol] 142 mmol/L Normal 136-145 [facility] Comment on above: Performed By: #### L 500.2500, L100.0100 ####[facility] [address] [place], [address] Urea nitrogen [Mass/Vol] 14 mg/dL Normal 7-18 [facility] Comment on above: Performed By: #### L 500.2500, L100.0100 ####[facility] [address] [place], [address] CBC W/Diff, Automatedon 01-0 6-2025 Absolute Lymph 2.60 X10 3/uL Normal 0.83-4.51 [facility] Comment on above: Performed By: #### L 500.2500, L100.0100 ####[facility] [address] [place], [address] Absolute Neut 12.8 X10 3/uL High 2.0-7.7 [facility] Comment on above: Performed By: #### L 500.2500, L100.0100 ####[facility] [address] [place], [address] Basophils/100 WBC (Bld) 0.5 % Normal 0-1 [facility] Comment on above: Performed By: #### L 500.2500, L100.0100 ####[facility] [address] [place], [address] Eosinophils/100 WBC (Bld) 0.4 % Normal 0-5 [facility] Comment on above: Performed By: #### L 500.2500, L100.0100 ####[facility] [address] [place], [address] Erythrocyte distribution width (RBC) [Ratio] 12.6 % Normal 11.6-14.6 [facility] Comment on above: Performed By: #### L 500.2500, L100.0100 ####[facility] [address] [place], [address] Hematocrit (Bld) [Volume fraction] 42.7 % Normal 37-47 [facility] Comment on above: Performed By: #### L 500.2500, L100.0100 ####[facility] [address] [place], [address] Hemoglobin (Bld) [Mass/Vol] 14.1 g/dL Normal 12.0-15.0 [facility] Comment on above: Performed By: #### L 500.2500, L100.0100 ####[facility] [address] [place], [address] IG% 1.000 High 0.0-0.9 [facility] Comment on above: Result Comment: IG% - Immature Granulocytes (promyelocytes, myelocytes andmetamyelocytes) > 1% indicates that a LEFT SHIFT is Present. Performed By: #### L 500.2500, L100.0100 ####[facility] [address] [place], [address] Lymphocytes/100 WBC (Bld) 15.8 % Low 19-41 [facility] Comment on above: Performed By: #### L 500.2500, L100.0100 ####[facility] [address] [place], [address] MCH (RBC) [Entitic mass] 28.9 pg Normal 27.0-32.0 [facility] Comment on above: Performed By: #### L 500.2500, L100.0100 ####[facility] [address] [place], [address] MCHC (RBC) [Mass/Vol] 33.0 g/dL Normal 32-36 [facility] Comment on above: Performed By: #### L 500.2500, L100.0100 ####[facility] [address] [place], [address] MCV (RBC) [Entitic vol] 87.5 fL Normal 81-99 [facility] Comment on above: Performed By: #### L 500.2500, L100.0100 ####[facility] [address] [place], [address] Monocytes/100 WBC (Bld) 4.6 % Normal 0-10 [facility] Comment on above: Performed By: #### L 500.2500, L100.0100 ####[facility] [address] [place], [address] Neutrophils/100 WBC (Bld) 77.7 % High 47-70 [facility] Comment on above: Performed By: #### L 500.2500, L100.0100 ####[facility] [address] [place], [address] Nucleated RBC (Bld) [#/Vol] 0 10*3/uL Normal 0-5 [facility] Comment on above: Performed By: #### L 500.2500, L100.0100 ####[facility] [address] [place], [address] Platelet mean volume (Bld) [Entitic vol] 12.5 fL High 6.2-12.0 [facility] Comment on above: Performed By: #### L 500.2500, L100.0100 ####[facility] [address] [place], [address] Platelets (Bld) [#/Vol] 199 10*3/uL Normal 150-450 [facility] Comment on above: Performed By: #### L 500.2500, L100.0100 ####[facility] [address] [place], [address] RBC (Bld) [#/Vol] 4.88 10*6/uL Normal 4.2-5.4 [facility] Comment on above: Performed By: #### L 500.2500, L100.0100 ####[facility] [address] [place], [address] RDW SD 40.3 fl Normal 35.1-43.9 [facility] Comment on above: Performed By: #### L 500.2500, L100.0100 ####[facility] [address] [place], [address] WBC (Bld) [#/Vol] 16.5 10*3/uL High 4.4-11.0 [facility] Comment on above: Performed By: #### L 500.2500, L100.0100 ####[facility] [address] [place], [address] Emergency Department Summary on 09-02-2024 Emergency Department Summary Normal [facility] Urinalysis, Completeon 09-02 BACTERIA 2+ /hpf Normal None Seen [facility] Comment on above: Order Comment: CLEAN CATCH Performed By: #### L 400.0001 ####[facility] [address] [place], [address] EPI,SQUAMOUS 0-5 SEEN Normal 5-10 [facility] Comment on above: Order Comment: CLEAN CATCH Performed By: #### L 400.0001 ####[facility] [address] [place], [address] Mucus Ql (Urine sed) RARE Normal [facility] Comment on above: Order Comment: CLEAN CATCH Performed By: #### L 400.0001 ####[facility] [address] [place], [address] WBC 0-5 SEEN Normal 0-5 [facility] Comment on above: Order Comment: CLEAN CATCH Performed By: #### L 400.0001 ####[facility] [address] [place], [address] RBC 0 SEEN Normal 0-5 [facility] Comment on above: Order Comment: CLEAN CATCH Performed By: #### L 400.0001 ####[facility] [address] [place], [address] 36on 08-07-2024 36 Medication: Skyrizi 150mg/ml Dosing Schedule: 150mg every 12 weeks Prior Authorization: Submitted date: 08.07.2024 [place] reference #: [id number] Approval dates: 08.07.2024-08.27.2024 [facility] [phone] [facility] Urine Cultureon 08-04-2024 [facility] Mixed Gram Positive Organisms Bristol Count 11,000-25,000 [facility]IX[facility] Mixed contaminants. Submit a new specimen if indicated. Normal [facility] Comment on above: Performed By: #### M 100.2200 ####[facility] [address] [place], [address] Basic Metabolic Profile (BMP )on 08-03-2024 BUN/CRE 9.9 RATIO Low 10-20 [facility] Comment on above: Order Comment: Call MD with results STAT Performed By: #### L 501.2300, L500.2500, L501.9520 ####[facility] [address] [place], [address] CA,Total 7.9 mg/dL Low 8.5-10.1 [facility] Comment on above: Order Comment: Call MD with results STAT Performed By: #### L 501.2300, L500.2500, L501.9520 ####[facility] [address] [place], [address] Chloride [Moles/Vol] 114 mmol/L High 98-107 [facility] Comment on above: Order Comment: Call MD with results STAT Performed By: #### L 501.2300, L500.2500, L501.9520 ####[facility] [address] [place], [address] CO2 [Moles/Vol] 22.0 mmol/L Normal 21.0-32.0 [facility] Comment on above: Order Comment: Call MD with results STAT Performed By: #### L 501.2300, L500.2500, L501.9520 ####[facility] [address] [place], [address] Creatinine [Mass/Vol] 0.61 mg/dL Normal 0.55-1.02 [facility] Comment on above: Order Comment: Call MD with results STAT Result Comment: The validity of the calculated GFR GFRAA in patients over70 years has not been determined. Clinical correlation isessential. Performed By: #### L 501.2300, L500.2500, L501.9520 ####[facility] [address] [place], [address] ECRCL 140.93 ml/min Normal [facility] Comment on above: Order Comment: Call MD with results STAT Performed By: #### L 501.2300, L500.2500, L501.9520 ####[facility] [address] [place], [address] EST GFR - AA 149 mL/min Normal >60 [facility] Comment on above: Order Comment: Call MD with results STAT Result Comment: Afri can Nauruan GFR Calc Performed By: #### L 501.2300, L500.2500, L501.9520 ####[facility] [address] [place], [address] GAP 5 Normal 5-15 [facility] Comment on above: Order Comment: Call MD with results STAT Performed By: #### L 501.2300, L500.2500, L501.9520 ####[facility] [address] [place], [address] GFR/1.73 sq M.predicted among non-blacks MDRD (S/P/Bld) [Vol rate/Area] 123 mL/min/{1.73_m2} Normal >60 [facility] Comment on above: Order Comment: Call MD with results STAT Result Comment: Non- GFR Calc Performed By: #### L 501.2300, L500.2500, L501.9520 ####[facility] [address] [place], [address] Glucose [Mass/Vol] 193 mg/dL High 74-106 [facility] Comment on above: Order Comment: Call MD with results STAT Result Comment: Fast ing Glucose result greater than or equal to 126 mg/dLsuggests DIABETES MELLITUS per A.D.A. criteria. Performed By: #### L 501.2300, L500.2500, L501.9520 ####[facility] [address] [place], [address] Potassium [Moles/Vol] 4.5 mmol/L Normal 3.5-5.1 [facility] Comment on above: Order Comment: Call MD with results STAT Result Comment: Slig ht Hemolysis, Result may be falsely increased. Performed By: #### L 501.2300, L500.2500, L501.9520 ####[facility] [address] [place], [address] Sodium [Moles/Vol] 140 mmol/L Normal 136-145 [facility] Comment on above: Order Comment: Call with results STAT Performed By: #### L 501.2300, L500.2500, L501.9520 ####[facility] [address] [place], [address] Urea nitrogen [Mass/Vol] 6 mg/dL Low 7-18 [facility] Comment on above: Order Comment: Call with results STAT Performed By: #### L 501.2300, L500.2500, L501.9520 ####[facility] [address] [place], [address] BUN Normal 7-18 [facility] Comment on above: Order Comment: Call with results STAT Result Comment: @NOT NEEDED BY [employer] TRA[employer] DEVELOPMENT DIRECTOR Performed By: #### L 500.2500 ####[facility] [address] [place], [address] BUN/CRE Normal 10-20 [facility] Comment on above: Order Comment: Call with results STAT Result Comment: @NOT NEEDED BY [employer] TRA[employer] DEVELOP[employer] DIRECTOR Performed By: #### L 500.2500 ####[facility] [address] [place], [address] CA,Total Normal 8.5-10.1 [facility] Comment on above: Order Comment: Call MD with results STAT Result Comment: @NOT NEEDED BY ROLANR2 TRAINING DEVELOPMENT DIRECTOR Performed By: #### L 500.2500 ####[facility] [address] [place] [address] CL Normal 98-107 [facility] Comment on above: Order Comment: Call MD with results STAT Result Comment: @NOT NEEDED BY ROLANR2 TRAINING DEVELOPMENT DIRECTOR Performed By: #### L 500.2500 ####[facility] [address] [place] [address] CO2 Normal 21.0-32.0 [facility] Comment on above: Order Comment: Call MD with results STAT Result Comment: @NOT NEEDED BY ROLANR2 TRAINING DEVELOPMENT DIRECTOR Performed By: #### L 500.2500 ####[facility] [address] [place] [address] CREAT,SERUM Normal 0.55-1.02 [facility] Comment on above: Order Comment: Call MD with results STAT Result Comment: @NOT NEEDED BY ROLANR2 TRAINING DEVELOPMENT DIRECTOR Performed By: #### L 500.2500 ####[facility] [address] [place] [id number] EST GFR Normal >60 [facility] Comment on above: Order Comment: Call MD with results STAT Result Comment: @NOT NEEDED BY ROLANR2 TRAINING DEVELOPMENT DIRECTOR Performed By: #### L 500.2500 ####[facility] [address] [place] [id number] EST GFR - AA Normal >60 [facility] Comment on above: Order Comment: Call MD with results STAT Result Comment: @NOT NEEDED BY ROLANR2 TRAINING DEVELOPMENT DIRECTOR Performed By: #### L 500.2500 ####[facility] [address] [place], [address] GAP Normal 5-15 [facility] Comment on above: Order Comment: Call MD with results STAT Result Comment: @NOT NEEDED BY ROLANR2 TRAINING DEVELOPMENT DIRECTOR Performed By: #### L 500.2500 ####[facility] [address] [place], [address] GLU Normal 74-106 [facility] Comment on above: Order Comment: Call MD with results STAT Result Comment: @NOT NEEDED BY TMPETRONAR2 TRAINING DEVELOPMENT DIRECTOR Performed By: #### L 500.2500 ####[facility] [address] [place], [address] Potassium Normal 3.5-5.1 [facility] Comment on above: Order Comment: Call MD with results STAT Result Comment: @NOT NEEDED BY TMPETRONAR2 TRAINING DEVELOPMENT DIRECTOR Performed By: #### L 500.2500 ####[facility] [address] [place], [address] Basic Metabolic Profile (BMP) Normal 136-145 [facility] Comment on above: Order Comment: Call MD with results STAT Result Comment: @NOT NEEDED BY ROLANR2 TRAINING DEVELOPMENT DIRECTOR Performed By: #### L 500.2500 ####[facility] [address] [place], [address] Bedside Glucoseon 08-03-2024 FINGERSTICK GLU 212 mg/dL High 74-106 [facility] Comment on above: Result Comment: EDGAR GEMENT OF PATIENT CARE PER NURSING PROTOCOL Performed By: #### L 501.080 ####[facility] [address] [place], [address] FINGERSTICK GLU 256 mg/dL High 74-106 [facility] Comment on above: Result Comment: EDGAR GEMENT OF PATIENT CARE PER NURSING PROTOCOL Performed By: #### L 501.080 ####[facility] [address] [place], [address] FINGERSTICK GLU 153 mg/dL High 74-106 [facility] Comment on above: Result Comment: EDGAR HUNG OF PATIENT CARE PER NURSING PROTOCOL Performed By: #### L 501.080 ####[facility] [address] [place], [address] Discharge Instructionon 12-0 Discharge Instruction Normal [facility] Phosphoruson 08-03-2024 Phosphate [Mass/Vol] 1.8 mg/dL Low 2.5-4.9 [facility] Comment on above: Order Comment: Call MD with results STAT Performed By: #### L 501.2300, L500.2500, L501.9520 ####[facility] [address], [address] Thyroid Stim Hormone (TSH)on 08-03-2024 TSH 2.360 uIU/mL Normal 0.358-3.740 [facility] Comment on above: Order Comment: Call with results STAT Performed By: #### L 501.2300, L500.2500, L501.9520 ####[facility] [address] [place], [address] Acetone Serumon 08-02-2024 ACETONE SERUM Negative Normal NEG [facility] Comment on above: Performed By: #### L 501.6900 ####[facility] [address] [place], [address] ACETONE SERUM SMALL Abnormal NEG [facility] Comment on above: Result Comment: RESU LTS CALLED TO [facility] 08/02/24 0107 Jhoana Martínez.REPORT READ BACK BY SAME. Performed By: #### L 100.0100, L503.6005, L700.6800, L501.6900, L500.3400, L501.5200, L501.2450, L500.2500 ####[facility] [address] [place], [address] Basic Metabolic Profile (BMP )on 08-02-2024 BUN Normal 7-18 [facility] Comment on above: Order Comment: Call MD with results STAT Result Comment: @NOT NEEDED BY PETRONAR2 TRAINING DEVELOPMENT DIRECTOR Performed By: #### L 500.2500 ####[facility] [address] [place], [address] BUN/CRE Normal 10-20 [facility] Comment on above: Order Comment: Call MD with results STAT Result Comment: @NOT NEEDED BY PETRONAR2 TRAINING DEVELOPMENT DIRECTOR Performed By: #### L 500.2500 ####[facility] [address] [place], [address] CA,Total Normal 8.5-10.1 [facility] Comment on above: Order Comment: Call MD with results STAT Result Comment: @NOT NEEDED BY PETRONAR2 TRAINING DEVELOPMENT DIRECTOR Performed By: #### L 500.2500 ####[facility] [address] [place], [address] CL Normal 98-107 [facility] Comment on above: Order Comment: Call MD with results STAT Result Comment: @NOT NEEDED BY [facility] TRAINING DEVELOPMENT DIRECTOR Performed By: #### L 500.2500 ####[facility] [address] [place], [address] CO2 Normal 21.0-32.0 [facility] Comment on above: Order Comment: Call MD with results STAT Result Comment: @NOT NEEDED BY [facility] TRAINING DEVELOPMENT DIRECTOR Performed By: #### L 500.2500 ####[facility] [address] [place], [address] CREAT,SERUM Normal 0.55-1.02 [facility] Comment on above: Order Comment: Call MD with results STAT Result Comment: @NOT NEEDED BY TMPETRONAR2 TRAINING DEVELOPMENT DIRECTOR Performed By: #### L 500.2500 ####[facility] [address] [place], [address] EST GFR Normal >60 [facility] Comment on above: Order Comment: Call MD with results STAT Result Comment: @NOT NEEDED BY TMPETRONAR2 TRAINING DEVELOPMENT DIRECTOR Performed By: #### L 500.2500 ####[facility] [address] [place], [address] EST GFR - AA Normal >60 [facility] Comment on above: Order Comment: Call MD with results STAT Result Comment: @NOT NEEDED BY ROLANR2 TRAINING DEVELOPMENT DIRECTOR Performed By: #### L 500.2500 ####[facility] [address] [place], [address] GAP Normal 5-15 [facility] Comment on above: Order Comment: Call MD with results STAT Result Comment: @NOT NEEDED BY TMPETRONAR2 TRAINING DEVELOPMENT DIRECTOR Performed By: #### L 500.2500 ####[facility] [address] [place], [address] GLU Normal 74-106 [facility] Comment on above: Order Comment: Call MD with results STAT Result Comment: @NOT NEEDED BY TMPETRONAR2 TRAINING DEVELOPMENT DIRECTOR Performed By: #### L 500.2500 ####[facility] [address] [place], [address] Potassium Normal 3.5-5.1 [facility] Comment on above: Order Comment: Call MD with results STAT Result Comment: @NOT NEEDED BY TMPETRONAR2 TRAINING DEVELOPMENT DIRECTOR Performed By: #### L 500.2500 ####[facility] [address] [place], [address] Basic Metabolic Profile (BMP) Normal 136-145 [facility] Comment on above: Order Comment: Call MD with results STAT Result Comment: @NOT NEEDED BY ROLANR2 TRAINING DEVELOPMENT DIRECTOR Performed By: #### L 500.2500 ####[facility] [address] [place], [address] BUN Normal 7-18 [facility] Comment on above: Order Comment: Call MD with results STAT Result Comment: @NOT NEEDED BY TMPETRONAR2 TRAINING DEVELOPMENT DIRECTOR Performed By: #### L 500.2500 ####[facility] [address] [place], [address] BUN/CRE Normal 10-20 [facility] Comment on above: Order Comment: Call MD with results STAT Result Comment: @NOT NEEDED BY ROLANR2 TRAINING DEVELOPMENT DIRECTOR Performed By: #### L 500.2500 ####[facility] [address] [place], [address] CA,Total Normal 8.5-10.1 [facility] Comment on above: Order Comment: Call MD with results STAT Result Comment: @NOT NEEDED BY ROLANR2 TRAINING DEVELOPMENT DIRECTOR Performed By: #### L 500.2500 ####[facility] [address] [place], [address] CL Normal 98-107 [facility] Comment on above: Order Comment: Call MD with results STAT Result Comment: @NOT NEEDED BY PETRONAR2 TRAINING DEVELOPMENT DIRECTOR Performed By: #### L 500.2500 ####[facility] [address] [place], [address] CO2 Normal 21.0-32.0 [facility] Comment on above: Order Comment: Call MD with results STAT Result Comment: @NOT NEEDED BY RLOANR2 TRAINING DEVELOPMENT DIRECTOR Performed By: #### L 500.2500 ####[facility] [address] [place], [address] CREAT,SERUM Normal 0.55-1.02 [facility] Comment on above: Order Comment: Call with results STAT Result Comment: @NOT NEEDED BY ROLANR2 TRAINING DEVELOPMENT DIRECTOR Performed By: #### L 500.2500 ####[facility] [address] [place], [address] EST GFR Normal >60 [facility] Comment on above: Order Comment: Call with results STAT Result Comment: @NOT NEEDED BY ROLANR2 TRAINING DEVELOPMENT DIRECTOR Performed By: #### L 500.2500 ####[facility] [address] [place], [address] EST GFR - AA Normal >60 [facility] Comment on above: Order Comment: Call MD with results STAT Result Comment: @NOT NEEDED BY PETRONAR2 TRAINING DEVELOPMENT DIRECTOR Performed By: #### L 500.2500 ####[facility] [address] [place], [address] GAP Normal 5-15 [facility] Comment on above: Order Comment: Call MD with results STAT Result Comment: @NOT NEEDED BY [facility] TRAINING DEVELOPMENT DIRECTOR Performed By: #### L 500.2500 ####[facility] [address] [place], [address] GLU Normal 74-106 [facility] Comment on above: Order Comment: Call MD with results STAT Result Comment: @NOT NEEDED BY TMPETRONAR2 TRAINING DEVELOPMENT DIRECTOR Performed By: #### L 500.2500 ####[facility] [address] [place], [address] Potassium Normal 3.5-5.1 [facility] Comment on above: Order Comment: Call MD with results STAT Result Comment: @NOT NEEDED BY PETRONAR2 TRAINING DEVELOPMENT DIRECTOR Performed By: #### L 500.2500 ####[facility] [address] [place], [address] Basic Metabolic Profile (BMP) Normal 136-145 [facility] Comment on above: Order Comment: Call MD with results STAT Result Comment: @NOT NEEDED BY [facility] TRAINING DEVELOPMENT DIRECTOR Performed By: #### L 500.2500 ####[facility] [address] [place], [address] BUN/CRE 11.7 RATIO Normal 10-20 [facility] Comment on above: Order Comment: Call MD with results STAT Performed By: #### L 500.2500 ####[facility] [address] [place], [address] CA,Total 7.7 mg/dL Low 8.5-10.1 [facility] Comment on above: Order Comment: Call MD with results STAT Performed By: #### L 500.2500 ####[facility] [address] [place], [address] Chloride [Moles/Vol] 116 mmol/L High 98-107 [facility] Comment on above: Order Comment: Call MD with results STAT Performed By: #### L 500.2500 ####[facility] [address] [place], [address] CO2 [Moles/Vol] 21.0 mmol/L Normal 21.0-32.0 [facility] Comment on above: Order Comment: Call MD with results STAT Performed By: #### L 500.2500 ####[facility] [address] [place], [address] Creatinine [Mass/Vol] 0.68 mg/dL Normal 0.55-1.02 [facility] Comment on above: Order Comment: Call MD with results STAT Result Comment: The validity of the calculated GFR GFRAA in patients over70 years has not been determined. Clinical correlation isessential. Performed By: #### L 500.2500 ####[facility] [address] [place], [address] ECRCL 126.42 ml/min Normal [facility] Comment on above: Order Comment: Call MD with results STAT Performed By: #### L 500.2500 ####[facility] [address] [place], [address] EST GFR - AA 130 mL/min Normal >60 [facility] Comment on above: Order Comment: Call MD with results STAT Result Comment: Afri can Nauruan GFR Calc Performed By: #### L 500.2500 ####[facility] [address] [place], [address] GAP 5 Normal 5-15 [facility] Comment on above: Order Comment: Call MD with results STAT Performed By: #### L 500.2500 ####[facility] [address] [place], [address] GFR/1.73 sq M.predicted among non-blacks MDRD (S/P/Bld) [Vol rate/Area] 107 mL/min/{1.73_m2} Normal >60 [facility] Comment on above: Order Comment: Call MD with results STAT Result Comment: Non- GFR Calc Performed By: #### L 500.2500 ####[facility] [address] [place], [address] Glucose [Mass/Vol] 116 mg/dL High 74-106 [facility] Comment on above: Order Comment: Call MD with results STAT Result Comment: Fast ing Glucose result from 100 to 125 mg/dLsuggests IMPAIRED HOMEOSTASIS per A.D.A. criteria. Performed By: #### L 500.2500 ####[facility] [address] [place], [address] Potassium [Moles/Vol] 3.8 mmol/L Normal 3.5-5.1 [facility] Comment on above: Order Comment: Call MD with results STAT Performed By: #### L 500.2500 ####[facility] [address] [place], [address] Sodium [Moles/Vol] 141 mmol/L Normal 136-145 [facility] Comment on above: Order Comment: Call MD with results STAT Performed By: #### L 500.2500 ####[facility] [address] [place], [address] Urea nitrogen [Mass/Vol] 8 mg/dL Normal 7-18 [facility] Comment on above: Order Comment: Call MD with results STAT Performed By: #### L 500.2500 ####[facility] [address] [place], [address] BUN Normal 7-18 [facility] Comment on above: Order Comment: Call MD with results STAT Result Comment: NO S PECIMEN DRAWN Performed By: #### L 500.2500 ####[facility] [address] [place], [address] BUN/CRE Normal 10-20 [facility] Comment on above: Order Comment: Call MD with results STAT Result Comment: NO S PECIMEN DRAWN Performed By: #### L 500.2500 ####[facility] [address] [place], [address] CA,Total Normal 8.5-10.1 [facility] Comment on above: Order Comment: Call MD with results STAT Result Comment: NO S PECIMEN DRAWN Performed By: #### L 500.2500 ####[facility] [address] [place], [address] CL Normal 98-107 [facility] Comment on above: Order Comment: Call MD with results STAT Result Comment: NO S PECIMEN DRAWN Performed By: #### L 500.2500 ####[facility] [address] [place], [address] CO2 Normal 21.0-32.0 [facility] Comment on above: Order Comment: Call MD with results STAT Result Comment: NO S PECIMEN DRAWN Performed By: #### L 500.2500 ####[facility] [address] [place], [address] CREAT,SERUM Normal 0.55-1.02 [facility] Comment on above: Order Comment: Call MD with results STAT Result Comment: NO S PECIMEN DRAWN Performed By: #### L 500.2500 ####[facility] [address] [place], [address] EST GFR Normal >60 [facility] Comment on above: Order Comment: Call MD with results STAT Result Comment: NO S PECIMEN DRAWN Performed By: #### L 500.2500 ####[facility] [address] [place], [address] EST GFR - AA Normal >60 [facility] Comment on above: Order Comment: Call MD with results STAT Result Comment: NO S PECIMEN DRAWN Performed By: #### L 500.2500 ####[facility] [address] [place], [address] GAP Normal 5-15 [facility] Comment on above: Order Comment: Call MD with results STAT Result Comment: NO S PECIMEN DRAWN Performed By: #### L 500.2500 ####[facility] [address] [place], [address] GLU Normal 74-106 [facility] Comment on above: Order Comment: Call MD with results STAT Result Comment: NO S PECIMEN DRAWN Performed By: #### L 500.2500 ####[facility] [address] [place], [address] Potassium Normal 3.5-5.1 [facility] Comment on above: Order Comment: Call MD with results STAT Result Comment: NO S PECIMEN DRAWN Performed By: #### L 500.2500 ####[facility] [address] [place], [address] Basic Metabolic Profile (BMP) Normal 136-145 [facility] Comment on above: Order Comment: Call MD with results STAT Result Comment: NO S PECIMEN DRAWN Performed By: #### L 500.2500 ####[facility] [address] [place], [address] BUN Normal 7-18 [facility] Comment on above: Order Comment: Call MD with results STAT Result Comment: NO S PECIMEN DRAWN Performed By: #### L 500.2500, L501.9985 ####[facility] [address] [place], [address] BUN/CRE Normal 10-20 [facility] Comment on above: Order Comment: Call MD with results STAT Result Comment: NO S PECIMEN DRAWN Performed By: #### L 500.2500, L501.9985 ####[facility] [address] [place], [address] CA,Total Normal 8.5-10.1 [facility] Comment on above: Order Comment: Call MD with results STAT Result Comment: NO S PECIMEN DRAWN Performed By: #### L 500.2500, L501.9985 ####[facility] [address] [place], [address] CL Normal 98-107 [facility] Comment on above: Order Comment: Call MD with results STAT Result Comment: NO S PECIMEN DRAWN Performed By: #### L 500.2500, L501.9985 ####[facility] [address] [place], [address] CO2 Normal 21.0-32.0 [facility] Comment on above: Order Comment: Call MD with results STAT Result Comment: NO S PECIMEN DRAWN Performed By: #### L 500.2500, L501.9985 ####[facility] [address] [place], [address] CREAT,SERUM Normal 0.55-1.02 [facility] Comment on above: Order Comment: Call MD with results STAT Result Comment: NO S PECIMEN DRAWN Performed By: #### L 500.2500, L501.9985 ####[facility] [address] [place], [address] EST GFR Normal >60 [facility] Comment on above: Order Comment: Call MD with results STAT Result Comment: NO S PECIMEN DRAWN Performed By: #### L 500.2500, L501.9985 ####[facility] [address] [place], [address] EST GFR - AA Normal >60 [facility] Comment on above: Order Comment: Call MD with results STAT Result Comment: NO S PECIMEN DRAWN Performed By: #### L 500.2500, L501.9985 ####[facility] [address] [place], [address] GAP Normal 5-15 [facility] Comment on above: Order Comment: Call MD with results STAT Result Comment: NO S PECIMEN DRAWN Performed By: #### L 500.2500, L501.9985 ####[facility] [address] [place], [address] GLU Normal 74-106 [facility] Comment on above: Order Comment: Call MD with results STAT Result Comment: NO S PECIMEN DRAWN Performed By: #### L 500.2500, L501.9985 ####[facility] [address] [place], [address] Potassium Normal 3.5-5.1 [facility] Comment on above: Order Comment: Call MD with results STAT Result Comment: NO S PECIMEN DRAWN Performed By: #### L 500.2500, L501.9985 ####[facility] [address] [place], [address] Basic Metabolic Profile (BMP) Normal 136-145 [facility] Comment on above: Order Comment: Call MD with results STAT Result Comment: NO S PECIMEN DRAWN Performed By: #### L 500.2500, L501.9985 ####[facility] [address] [place], [address] BUN/CRE 16.6 RATIO Normal 10-20 [facility] Comment on above: Performed By: #### L 100.0100, L503.6005, L700.6800, L501.6900, L500.3400, L501.5200, L501.2450, L500.2500 ####[facility] [address] [place], [address] CA,Total 8.9 mg/dL Normal 8.5-10.1 [facility] Comment on above: Performed By: #### L 100.0100, L503.6005, L700.6800, L501.6900, L500.3400, L501.5200, L501.2450, L500.2500 ####[facility] [address] [place], [address] Chloride [Moles/Vol] 107 mmol/L Normal 98-107 [facility] Comment on above: Performed By: #### L 100.0100, L503.6005, L700.6800, L501.6900, L500.3400, L501.5200, L501.2450, L500.2500 ####[facility] [address] [place], [place], [id number]) CO2 [Moles/Vol] 17.0 mmol/L Low 21.0-32.0 [facility] Comment on above: Performed By: #### L 100.0100, L503.6005, L700.6800, L501.6900, L500.3400, L501.5200, L501.2450, L500.2500 ####[facility] [address] [place] [id number] Creatinine [Mass/Vol] 0.84 mg/dL Normal 0.55-1.02 [facility] Comment on above: Result Comment: The validity of the calculated GFR GFRAA in patients over70 years has not been determined. Clinical correlation isessential. Performed By: #### L 100.0100, L503.6005, L700.6800, L501.6900, L500.3400, L501.5200, L501.2450, L500.2500 ####[facility] [address] [place], [address] ECRCL 102.34 ml/min Normal [facility] Comment on above: Performed By: #### L 100.0100, L503.6005, L700.6800, L501.6900, L500.3400, L501.5200, L501.2450, L500.2500 ####[facility] [address] [place], [address] EST GFR - AA 102 mL/min Normal >60 [facility] Comment on above: Result Comment: Afri can Nauruan GFR Calc Performed By: #### L 100.0100, L503.6005, L700.6800, L501.6900, L500.3400, L501.5200, L501.2450, L500.2500 ####[facility] [address] [place], [place], [id number] GAP 14 Normal 5-15 [facility] Comment on above: Performed By: #### L 100.0100, L503.6005, L700.6800, L501.6900, L500.3400, L501.5200, L501.2450, L500.2500 ####[facility] [address] [place], [address] GFR/1.73 sq M.predicted among non-blacks MDRD (S/P/Bld) [Vol rate/Area] 84 mL/min/{1.73_m2} Normal >60 [facility] Comment on above: Result Comment: Non- GFR Calc Performed By: #### L 100.0100, L503.6005, L700.6800, L501.6900, L500.3400, L501.5200, L501.2450, L500.2500 ####[facility] [address] [place], [place], [id number] Glucose [Mass/Vol] 253 mg/dL High 74-106 [facility] Comment on above: Result Comment: Gluc ose result greater than or equal to 200 mg/dLsuggests DIABETES MELLITUS per A.D.A. criteria. Performed By: #### L 100.0100, L503.6005, L700.6800, L501.6900, L500.3400, L501.5200, L501.2450, L500.2500 ####[facility] [address] [place], [place], [id number] Potassium [Moles/Vol] 3.4 mmol/L Low 3.5-5.1 [facility] Comment on above: Performed By: #### L 100.0100, L503.6005, L700.6800, L501.6900, L500.3400, L501.5200, L501.2450, L500.2500 ####[facility] [address] [place], [address] Sodium [Moles/Vol] 139 mmol/L Normal 136-145 [facility] Comment on above: Performed By: #### L 100.0100, L503.6005, L700.6800, L501.6900, L500.3400, L501.5200, L501.2450, L500.2500 ####[facility] [address] [place], [address] Urea nitrogen [Mass/Vol] 14 mg/dL Normal 7-18 [facility] Comment on above: Performed By: #### L 100.0100, L503.6005, L700.6800, L501.6900, L500.3400, L501.5200, L501.2450, L500.2500 ####[facility] [address] [place], [address] Bedside Glucoseon 08-02-2024 FINGERSTICK GLU 246 mg/dL High 74-106 [facility] Comment on above: Result Comment: EDGAR GEMENT OF PATIENT CARE PER NURSING PROTOCOL Performed By: #### L 501.080 ####[facility] [address] [place], [address] FINGERSTICK GLU 77 mg/dL Normal 74-106 [facility] Comment on above: Result Comment: EDGAR GEMENT OF PATIENT CARE PER NURSING PROTOCOL Performed By: #### L 501.080 ####[facility] [address] [place], [address] FINGERSTICK GLU 90 mg/dL Normal 74-106 [facility] Comment on above: Result Comment: EDGAR GEMENT OF PATIENT CARE PER NURSING PROTOCOL Performed By: #### L 501.080 ####[facility] [address] [place], [address] FINGERSTICK GLU 163 mg/dL High 74-106 [facility] Comment on above: Result Comment: EDGAR GEMENT OF PATIENT CARE PER NURSING PROTOCOL Performed By: #### L 501.080 ####[facility] [address] [place], [address] FINGERSTICK GLU 102 mg/dL Normal 74-106 [facility] Comment on above: Result Comment: EDGAR GEMENT OF PATIENT CARE PER NURSING PROTOCOL Performed By: #### L 501.080 ####[facility] [address] [place], [address] FINGERSTICK GLU 147 mg/dL High 74-106 [facility] Comment on above: Result Comment: EDGAR GEMENT OF PATIENT CARE PER NURSING PROTOCOL Performed By: #### L 501.080 ####[facility] [address] [place], [address] FINGERSTICK GLU 83 mg/dL Normal 74-106 [facility] Comment on above: Result Comment: EDGAR GEMENT OF PATIENT CARE PER NURSING PROTOCOL Performed By: #### L 501.080 ####[facility] [address] [place], [address] FINGERSTICK GLU 121 mg/dL High 74-106 [facility] Comment on above: Result Comment: EDGAR GEMENT OF PATIENT CARE PER NURSING PROTOCOL Performed By: #### L 501.080 ####[facility] [address] [place], [address] FINGERSTICK GLU 95 mg/dL Normal 74-106 [facility] Comment on above: Result Comment: EDGAR GEMENT OF PATIENT CARE PER NURSING PROTOCOL Performed By: #### L 501.080 ####[facility] [address] [place], [address] FINGERSTICK GLU 123 mg/dL High 74-106 [facility] Comment on above: Result Comment: EDGAR GEMENT OF PATIENT CARE PER NURSING PROTOCOL Performed By: #### L 501.080 ####[facility] [address] [place], [address] FINGERSTICK GLU 147 mg/dL High 74-106 [facility] Comment on above: Result Comment: EDGAR GEMENT OF PATIENT CARE PER NURSING PROTOCOL Performed By: #### L 501.080 ####[facility] [address] [place], [address] FINGERSTICK GLU 263 mg/dL High 74-106 [facility] Comment on above: Result Comment: EDGAR GEMENT OF PATIENT CARE PER NURSING PROTOCOL Performed By: #### L 501.080 ####[facility] [address] [place], [address] FINGERSTICK GLU 251 mg/dL High 74-106 [facility] Comment on above: Result Comment: EDGAR GEMENT OF PATIENT CARE PER NURSING PROTOCOL Performed By: #### L 501.080 ####[facility] [address] [place], [address] CBC W/Diff, Automatedon 12-0 Absolute Lymph 1.00 X10 3/uL Normal 0.83-4.51 [facility] Comment on above: Performed By: #### L 100.0100, L503.6005, L700.6800, L501.6900, L500.3400, L501.5200, L501.2450, L500.2500 ####[facility] [address] [place], [address] Absolute Neut 11.9 X10 3/uL High 2.0-7.7 [facility] Comment on above: Performed By: #### L 100.0100, L503.6005, L700.6800, L501.6900, L500.3400, L501.5200, L501.2450, L500.2500 ####[facility] [address] [place], [address] Basophils/100 WBC (Bld) 0.2 % Normal 0-1 [facility] Comment on above: Performed By: #### L 100.0100, L503.6005, L700.6800, L501.6900, L500.3400, L501.5200, L501.2450, L500.2500 ####[facility] [address] [place], [address] Eosinophils/100 WBC (Bld) 0.0 % Normal 0-5 [facility] Comment on above: Performed By: #### L 100.0100, L503.6005, L700.6800, L501.6900, L500.3400, L501.5200, L501.2450, L500.2500 ####[facility] [address] [place], [address] Erythrocyte distribution width (RBC) [Ratio] 12.3 % Normal 11.6-14.6 [facility] Comment on above: Performed By: #### L 100.0100, L503.6005, L700.6800, L501.6900, L500.3400, L501.5200, L501.2450, L500.2500 ####[facility] [address] [place], [address] Hematocrit (Bld) [Volume fraction] 38.3 % Normal 37-47 [facility] Comment on above: Performed By: #### L 100.0100, L503.6005, L700.6800, L501.6900, L500.3400, L501.5200, L501.2450, L500.2500 ####[facility] [address] [place], [address] Hemoglobin (Bld) [Mass/Vol] 13.0 g/dL Normal 12.0-15.0 [facility] Comment on above: Performed By: #### L 100.0100, L503.6005, L700.6800, L501.6900, L500.3400, L501.5200, L501.2450, L500.2500 ####[facility] [address] [place], [address] IG% 0.600 Normal 0.0-0.9 [facility] Comment on above: Result Comment: IG% - Immature Granulocytes (promyelocytes, myelocytes andmetamyelocytes) > 1% indicates that a LEFT SHIFT is Present. Performed By: #### L 100.0100, L503.6005, L700.6800, L501.6900, L500.3400, L501.5200, L501.2450, L500.2500 ####[facility] [address] [place], [address] Lymphocytes/100 WBC (Bld) 7.5 % Low 19-41 [facility] Comment on above: Performed By: #### L 100.0100, L503.6005, L700.6800, L501.6900, L500.3400, L501.5200, L501.2450, L500.2500 ####[facility] [address] [place], [address] MCH (RBC) [Entitic mass] 29.7 pg Normal 27.0-32.0 [facility] Comment on above: Performed By: #### L 100.0100, L503.6005, L700.6800, L501.6900, L500.3400, L501.5200, L501.2450, L500.2500 ####[facility] [address] [place], [address] MCHC (RBC) [Mass/Vol] 33.9 g/dL Normal 32-36 [facility] Comment on above: Performed By: #### L 100.0100, L503.6005, L700.6800, L501.6900, L500.3400, L501.5200, L501.2450, L500.2500 ####[facility] [address] [place], [address] MCV (RBC) [Entitic vol] 87.6 fL Normal 81-99 [facility] Comment on above: Performed By: #### L 100.0100, L503.6005, L700.6800, L501.6900, L500.3400, L501.5200, L501.2450, L500.2500 ####[facility] [address] [place], [address] Monocytes/100 WBC (Bld) 2.8 % Normal 0-10 [facility] Comment on above: Performed By: #### L 100.0100, L503.6005, L700.6800, L501.6900, L500.3400, L501.5200, L501.2450, L500.2500 ####[facility] [address] [place], [address] Neutrophils/100 WBC (Bld) 88.9 % High 47-70 [facility] Comment on above: Performed By: #### L 100.0100, L503.6005, L700.6800, L501.6900, L500.3400, L501.5200, L501.2450, L500.2500 ####[facility] [address] [place], [address] Nucleated RBC (Bld) [#/Vol] 0 10*3/uL Normal 0-5 [facility] Comment on above: Performed By: #### L 100.0100, L503.6005, L700.6800, L501.6900, L500.3400, L501.5200, L501.2450, L500.2500 ####[facility] [address] [place], [address] Platelet mean volume (Bld) [Entitic vol] 13.0 fL High 6.2-12.0 [facility] Comment on above: Performed By: #### L 100.0100, L503.6005, L700.6800, L501.6900, L500.3400, L501.5200, L501.2450, L500.2500 ####[facility] [address] [place], [address] Platelets (Bld) [#/Vol] 169 10*3/uL Normal 150-450 [facility] Comment on above: Performed By: #### L 100.0100, L503.6005, L700.6800, L501.6900, L500.3400, L501.5200, L501.2450, L500.2500 ####[facility] [address] [place], [place], [phone] RBC (Bld) [#/Vol] 4.37 10*6/uL Normal 4.2-5.4 [facility] Comment on above: Performed By: #### L 100.0100, L503.6005, L700.6800, L501.6900, L500.3400, L501.5200, L501.2450, L500.2500 ####[facility] [address] [place], [address] RDW SD 39.6 fl Normal 35.1-43.9 [facility] Comment on above: Performed By: #### L 100.0100, L503.6005, L700.6800, L501.6900, L500.3400, L501.5200, L501.2450, L500.2500 ####[facility] [address] [place], [address] WBC (Bld) [#/Vol] 13.4 10*3/uL High 4.4-11.0 [facility] Comment on above: Performed By: #### L 100.0100, L503.6005, L700.6800, L501.6900, L500.3400, L501.5200, L501.2450, L500.2500 ####[facility] [address] [place], [address] Emergency Department Summary on 08-02-2024 Emergency Department Summary Normal [facility] H AND P Exam - Hospitaliston 08-02-2024 H&P Exam - Hospitalist Normal [facility] Hemoglobin A1con 08-02-2024 HbA1c (Bld) [Mass fraction] 7.9 % High 3.8-5.6 [facility] Comment on above: Result Comment: Norm al < 5.7 % Prediabetic 5.7 - 6.4 % Diabetic >or= 6.5 % Please note range changes. Performed By: #### L 500.2500, L501.9985 ####[facility] [address] [place], [address] Kidney and Bladderon 024 Kidney and Bladder Normal [facility] Lactic Acidon 08-02-2024 Lactate [Moles/Vol] 1.4 mmol/L Normal 0.4-1.9 [facility] Comment on above: Performed By: #### L 503.6005 ####[facility] [address] [place], [address] Lactate [Moles/Vol] 0.9 mmol/L Normal 0.4-1.9 [facility] Comment on above: Order Comment: Y Performed By: #### L 503.6005 ####[facility] [address] [place], [address] Lactate [Moles/Vol] 2.2 mmol/L Invalid Interpretation Code 0.4-1.9 [facility] Comment on above: Order Comment: Y Result Comment: Crit ical Result(s) Called at: 01:06:13 08/02/2024 by:Jhoana Martínez lforrestResults read back by same. Performed By: #### L 100.0100, L503.6005, L700.6800, L501.6900, L500.3400, L501.5200, L501.2450, L500.2500 ####[facility] [address] [place], [address] Lipaseon 08-02-2024 Lipase [Catalytic activity/Vol] U/L Low 13-75 [facility] Comment on above: Result Comment: Sulma schmitz note:LIPASE revised reference range effective 22.New Lipase methodology. Expected to produce lower valuesthan the previous assay method.NEW Reference Range: 13 - 75 U/L Performed By: #### L 100.0100, L503.6005, L700.6800, L501.6900, L500.3400, L501.5200, L501.2450, L500.2500 ####[facility] [address] [place], [address] Liver Profileon 08-02-2024 Albumin [Mass/Vol] 4.1 g/dL Normal 3.2-5.0 [facility] Comment on above: Performed By: #### L 100.0100, L503.6005, L700.6800, L501.6900, L500.3400, L501.5200, L501.2450, L500.2500 ####[facility] [address] [place], [address] ALK P 78 U/L Normal 45-117 [facility] Comment on above: Performed By: #### L 100.0100, L503.6005, L700.6800, L501.6900, L500.3400, L501.5200, L501.2450, L500.2500 ####[facility] [address] [place], [address] ALT [Catalytic activity/Vol] 15 U/L Normal 13-56 [facility] Comment on above: Performed By: #### L 100.0100, L503.6005, L700.6800, L501.6900, L500.3400, L501.5200, L501.2450, L500.2500 ####[facility] [address], [address] AST [Catalytic activity/Vol] 13 U/L Low 15-37 [facility] Comment on above: Performed By: #### L 100.0100, L503.6005, L700.6800, L501.6900, L500.3400, L501.5200, L501.2450, L500.2500 ####[facility] [address], [address] Bilirubin [Mass/Vol] 1.20 mg/dL High 0.20-1.00 [facility] Comment on above: Result Comment: For patients on eltrombopag therapy, use of Dimension Ivor TBIL is not recommended. Performed By: #### L 100.0100, L503.6005, L700.6800, L501.6900, L500.3400, L501.5200, L501.2450, L500.2500 ####[facility] [address], [address] Bilirubin.direct [Mass/Vol] 0.38 mg/dL High 0.00-0.30 [facility] Comment on above: Performed By: #### L 100.0100, L503.6005, L700.6800, L501.6900, L500.3400, L501.5200, L501.2450, L500.2500 ####[facility] [address], [address] Globulin (S) [Mass/Vol] 3.3 g/dL Normal 2.2-4.2 [facility] Comment on above: Performed By: #### L 100.0100, L503.6005, L700.6800, L501.6900, L500.3400, L501.5200, L501.2450, L500.2500 ####[facility] [address] [place], [address] T PROT 7.4 g/dL Normal 6.4-8.2 [facility] Comment on above: Performed By: #### L 100.0100, L503.6005, L700.6800, L501.6900, L500.3400, L501.5200, L501.2450, L500.2500 ####[facility] [address] [place], [address] Magnesiumon 08-02-2024 Magnesium [Mass/Vol] 2.5 mg/dL Normal 1.6-2.6 [facility] Comment on above: Performed By: #### L 501.5200, L501.2300 ####[facility] [address] [place], [address] Magnesium [Mass/Vol] 1.5 mg/dL Low 1.6-2.6 [facility] Comment on above: Performed By: #### L 100.0100, L503.6005, L700.6800, L501.6900, L500.3400, L501.5200, L501.2450, L500.2500 ####[facility] [address] [place], [address] Phosphoruson 08-02-2024 Phosphate [Mass/Vol] 2.2 mg/dL Low 2.5-4.9 [facility] Comment on above: Performed By: #### L 501.5200, L501.2300 ####[facility] [address] [place], [address] ,Serum,hCG Quali.on 08-02-2024 HCG, SERUM QUAL Negative Normal [facility] Comment on above: Performed By: #### L 100.0100, L503.6005, L700.6800, L501.6900, L500.3400, L501.5200, L501.2450, L500.2500 ####[facility] [address] [place], [address] Urinalysis, Completeon 08-02 BACTERIA 1+ /hpf Normal None Seen [facility] Comment on above: Order Comment: CLEAN CATCH Performed By: #### L 400.0001 ####[facility] [address] [place], [address] EPI,SQUAMOUS 0-5 SEEN Normal 5-10 [facility] Comment on above: Order Comment: CLEAN CATCH Performed By: #### L 400.0001 ####[facility] [address] [place], [address] WBC 0-5 SEEN Normal 0-5 [facility] Comment on above: Order Comment: CLEAN CATCH Performed By: #### L 400.0001 ####[facility] [address] [place], [address] Mucus Ql (Urine sed) 0 SEEN Normal [facility] Comment on above: Order Comment: CLEAN CATCH Performed By: #### L 400.0001 ####[facility] [address] [place], [address] RBC 0 SEEN Normal 0-5 [facility] Comment on above: Order Comment: CLEAN CATCH Performed By: #### L 400.0001 ####[facility] [address] [place], [address] Urine Drug Screen (VISTA)on 08-02-2024 AMPHETAMINES Negative Normal <1000 ng/mL [facility] Comment on above: Performed By: #### L 505.5000 ####[facility] [address] [place], [address] BARBITIURATES Negative Normal < 200 ng/mL [facility] Comment on above: Performed By: #### L 505.5000 ####[facility] [address] [place], [address] BENZODIAZIPINE Negative Normal < 200 ng/mL [facility] Comment on above: Performed By: #### L 505.5000 ####[facility] [address] [place], [address] COCAINE Negative Normal < 300 ng/mL [facility] Comment on above: Performed By: #### L 505.5000 ####[facility] [address] [place] [id number] ECSTACY Negative Normal < 500 ng/mL [facility] Comment on above: Performed By: #### L 505.5000 ####[facility] [address] [place] [id number] METHADONE Negative Normal < 300 ng/mL [facility] Comment on above: Performed By: #### L 505.5000 ####[facility] [address] [place] [address] OPIATES Negative Normal < 300 ng/mL [facility] Comment on above: Performed By: #### L 505.5000 ####[facility] [address] [place] [address] PCP Negative Normal < 25 ng/mL [facility] Comment on above: Performed By: #### L 505.5000 ####[facility] [address] [place], [address] THC Positive Abnormal < 50 ng/mL [facility] Comment on above: Performed By: #### L 505.5000 ####[facility] [address] [place], [place], [phone] VISTA UDS PH 5 Normal [facility] Comment on above: Performed By: #### L 505.5000 ####[facility] [address] [place], [address] Venous Blood Gason 4 Blood Gas Type ISABELLE Normal [facility] Comment on above: Performed By: #### L 9000.0810 ####[facility] [address] [place], [address] CO2 [Moles/Vol] 17 mmol/L Low 23-33 [facility] Comment on above: Performed By: #### L 9000.0810 ####[facility] [address] [place], [address] HCO3 (Bld) [Moles/Vol] 16 mmol/L Low 22-26 [facility] Comment on above: Performed By: #### L 0.0810 ####[facility] [address] [place], [address] O2 Delivery Dev Room Air [facility] Comment on above: Performed By: #### L 9000.0810 ####[facility] [address] [place], [address] SITE Not entered [facility] Comment on above: Performed By: #### L 9000.0810 ####[facility] [address] [place], [address] VBG BE -9 mmol/L Low -1.0-3.5 [facility] Comment on above: Performed By: #### L 9000.0810 ####[facility] [address] [place], [address] VBG pCO2 28.0 mmHg Low 41-51 [facility] Comment on above: Performed By: #### L 9000.0810 ####[facility] [address] [place], [address] VBG pH 7.38 Normal 7.32-7.42 [facility] Comment on above: Performed By: #### L 9000.0810 ####[facility] [address] [place], [address] VBG PO2 46 mmHg High 25-40 [facility] Comment on above: Performed By: #### L 9000.0810 ####[facility] [address] [place], [address] VBG SO2 82 High 50-70 [facility] Comment on above: Performed By: #### L 9000.0810 ####[facility] [address] [place], [address] Chest PA and Lateralon 08-01 Chest PA and Lateral Normal [facility] Emergency Department Summary on 08-01-2024 Emergency Department Summary Normal [facility] CNNURSEon 07-23-2024 CNNURSE Nurse Visit (ENDIMT) KATHLEEN VILLA ([id number]) 1995 F T Date Time Provider Department 07/23/24 9:00 AM VAMSI CARSON During your visit today, we recorded the following information about you: Vamsi Carson RN 07/23/2024 9:04 AM Signed DIABETES CARE AND EDUCATION VISIT Location: [place] Type of visit: In person individual PATIENT'S [...] TIME: 8:47 AM Referring Provider: KVNG LEWIS [[id number]] Allergies As of Date: 07/23/2024 Noted Allergy [...] Date Reviewed: 07/19/2024 Reviewed by: Jessica Guerrero APRN.FORESTRY TECHNICAL OFFICER - Fully Assessed Visit Diagnoses:Type 1 diabetes mellitus with hyperglycemia, with long-term current use of insulin (HCC) [E10.65] Insulin pump status [Z96.41] Order(s):CONSULT TO DIABETES EDUCATION DSME [3816382] Order #: [id number]: 2 Prescriptions as of 07/23/2024 - Acetone, [...] Units subcutaneously every 24 hours. - Insulin [place], Disposable, (PEN NEEDLE) 32 gauge x 5/32 [...] (post-traumatic stress disorder) [F43.10] 12/25/2012 DVT prophylaxis [SXN8863] 12/25/2012 09/04/2013 DISPOSITION AND FOLLOW-UP [V999.01] 12/25/2012 09/04/2013 HTN (hypertension) [I10] Hypertension in , antepartum [O16.9] 09/19/2013 01/08/2014 GBS (group B Streptococcus mesa (more content not included)... Normal [facility] Dipak 07-19-2024 GIOVANA Telephone (ENDOIN) KATHLEEN VILLA ([id number]) 1995 F CHT Date Time Provider Department 07/19/24 JESSICA GUERRERO During your visit today, we recorded the following information about you: Lisa Aguilar LPN 07/19/2024 3:45 PM Signed Jessica Guerrero APRN.FRIEDA Ashby She was able to get upgraded pump recently. I am sending her to [employer] and [employer] to start. She will need new supplies from [facility] including Guardian 4 CGM and supplies for [employer] 780 G. Jessica Guerrero APRN.FORESTRY TECHNICAL OFFICER Lisa Aguilar LPN 07/24/2024 2:00 PM Signed [facility] form for CGM /Pump completed and [...] Date Reviewed: 07/19/2024 Reviewed by: Jessica Guerrero APRN.FORESTRY TECHNICAL OFFICER - Fully Assessed Prescriptions as of 07/30/2024 [...] Units subcutaneously every 24 hours. 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 Normal [facility] C. trachomatis+N. gonorrhoea e DNA DANIEL+probe Ql (Unsp spec)on 07-10-2024 C. trachomatis rRNA DANIEL+probe Ql (Unsp spec) Negative Normal Negative for Chlamydia trachomatis by amplificaton [facility] Comment on above: Order Comment: Speci men Type: SWABOrdering Facility: [facility] Address: [address] [place] [address] Performed By: #### T RVAMP, 62767-7 ####[facility] [id number] [address] [place] N. gonorrhoeae rRNA DANIEL+probe Ql (Unsp spec) Negative Normal Negative for Neisseria gonorrhoeae by amplification [facility] Comment on above: Order Comment: Speci men Type: SWABOrdering Facility: [facility] Address: [address] [place] [address] Performed By: #### T RVAMP, 91658-2 ####[facility] [id number] [place] [address] [place] CNOVon 07-10-2024 CNOV Office Visit (OBGYWM ) KATHLEEN VILLA ([id number]) 1995 F CHT Date Time Provider Department [...] L2 SAB0 IAB0 Ectopic0 Multiple0 Live Births2 Application Dba History LMP: 11/26/2022 (Exact Date), Having periods Age at Menarche: 12 Age at First : Age at Menopause: Application Dba History Comments: Sexual Activity: Yes; Male Contraception: [...] discussed with the Patient or Patient's Authorized Electrical Continuity Tester. As applicable, any other physician, advance practice provider, medical student, or other health professional student that will be observing or involved in the sensitive examination for educational or training purposes was discussed with the Patient or Authorized Electrical Continuity Tester. The Patient or Authorized Electrical Continuity Tester has agreed to proceed with the sensitive [...] external genitalia normal, normal Bartholin's glands, urethra, Copperton's glands, no vulvar lesions, no cervical lesions, good vaginal support, physiologic discharge present, normal appearing perineal body and perianal region BIMANUAL: uterus normal size, shape and consistency, no adnexal masses, and non-tender ASSESSMENT/PLAN: 1) Health maintenance:Bisexual Pap done with reflex H (more content not included)... Normal [facility] HCV RNA DANIEL+probe Qnon 07-10 HCV RNA DANIEL+probe Ql Not detected Normal Not detected [facility] Comment on above: Order Comment: Speci men Type: BLOOD SPECIMENOrdering Facility: [facility] Address: [address] [place] [address] Performed By: #### 1 1011-4 ####[facility] LABIA [id number] [place] [address] [place] HIGH RISK HUMAN PAPILLOMA DERECK (HPV), PCR FOR DETECTION AND GENOTYPINGon 07-10-2024 HPV 16 Ag Ql (Unsp spec) Not detected Normal Not detected [facility] Comment on above: Order Comment: Speci men Type: FLUID SPECIMENOrdering Facility: [facility] Address: [address] [place] [address] Performed By: #### H PVHRT ####[facility] [id number] [place] [address] [place] HPV 18 Ag Ql (Unsp spec) Not detected Normal Not detected [facility] Comment on above: Order Comment: Speci men Type: FLUID SPECIMENOrdering Facility: [facility] Address: [address] [place] [address] Performed By: #### H PVHRT ####[facility] [id number] [place] [address] [place] HPV 31+33+35+39+45+51+52+5 6+58+59+66+68 DNA DANIEL+probe Ql (Cvx) Not detected Normal Not detected [facility] Comment on above: Order Comment: Speci men Type: FLUID SPECIMENOrdering Facility: [facility] Address: [address] [place] [address] Result Comment: High Risk HPV Other Type includes HPV types 31, 33, 35, 39, 45, 51, 52, 56, 58, 59, 66 and 68. Performed By: #### H PVHRT ####[facility] [id number] [place] [address] [place] HIV 1+2 Ab IA Qlon 4 HIV 1 and 2 Ab IA.rapid Nom (S/P/Bld) Normal [facility] Comment on above: Order Comment: Speci men Type: BLOOD SPECIMENOrdering Facility: [facility] Address: [address] [place] [address] Result Comment: Test not indicated. Performed By: #### 3 1201-7, 40657-9 ####[facility] [id number] [place] [address] [place] HIV 1+2 Ab+HIV1 p24 Ag IA Ql Non-Reactive Normal Nonreactive [facility] Comment on above: Order Comment: Speci men Type: BLOOD SPECIMENOrdering Facility: [facility] Address: [address] [place] [address] Performed By: #### 3 1201-7, 53962-2 ####[facility] [id number] [place] [address] [place] HIV immunoassay testing algorithm interpretation (S/P/Bld) [Interp] Normal [facility] Comment on above: Order Comment: Speci men Type: BLOOD SPECIMENOrdering Facility: [facility] Address: [address] [place] [address] Result Comment: No e vidence of HIV-1 or HIV-2 infection. Should recent infection be suspected, repeat testing may be considered 2-3 weeks after this draw. [place] Rev. Code 3701.243(E): This information has been [...] or diagnoses. Performed By: #### 3 1201-7, 14155-1 ####[facility] [id number] [address] [address] [place] PAP TESTon 07-10-2024 ADEQUACY Normal [facility] Comment on above: Order Comment: Speci men Type: FLUID SPECIMENOrdering Facility: [facility] Address: [address] [place] [address] Result Comment: Sati sfactory for interpretation. Limited cellularity. Performed By: #### L [id number] ####[facility] [id number] [place] [address] [place] CASE REPORT Normal [facility] Comment on above: Order Comment: Speci men Type: FLUID SPECIMENOrdering Facility: [facility] Address: [address] [place] [address] Result Comment: Gyne cologic Cytology Report Case: [id number] Authorizing Provider: Jason Paredes MD Collected: 07/10/2024 12:13 PM Ordering Location: OB/Gynecology Received: 07/10/2024 03:39 PM First Screen: Aramouni, [place], [place], ASCP Specimen: Pap Test, ThinPrep, Cervix Performed By: #### L [id number] ####[facility] LABCLIA [id number] [place] [id number] [place] CLINICAL HISTORY, CYTOLOGY, RESIDENTIAL FEE APPRAISER Routine Exam Normal [facility] Comment on above: Order Comment: Speci men Type: FLUID SPECIMENOrdering Facility: [facility] Address: [address] [place] [address] Performed By: #### L [id number] ####[facility] LABCLIA [id number] [place] [address] [place] FINAL PERFORMING LAB Normal [facility] Comment on above: Order Comment: Speci men Type: FLUID SPECIMENOrdering Facility: [facility] Address: [address] [place] [address] Result Comment: Tech nical component, train station agent screening performed at [facility], [address] [id number] CLIA# [id number] Diagnostic interpretation performed at [facility], [address] [place] [address] CLIA# [id number] Galvanizing Pot Runner: Brennen Holloway M.D. Performed By: #### L [id number] ####[facility] LABCLIA [id number] [place] [address] [place] INTERPRETATION, CYTOLOGY, RESIDENTIAL FEE APPRAISER Normal [facility] Comment on above: Order Comment: Speci men Type: FLUID SPECIMENOrdering Facility: [facility] Address: [address] [place] [address] Result Comment: Nega tive for intraepithelial lesion or malignancy. Performed By: #### L [id number] ####[facility] LABCLIA [id number] [place] [address] [place] [facility] 06/04/2024 Normal [facility] Comment on above: Order Comment: Speci men Type: FLUID SPECIMENOrdering Facility: [facility] Address: [address] [place] [address] Performed By: #### L [id number] ####[facility] LABCLIA [id number] [place] [address] [place] PAP DISCLAIMER COMMENT The Pap Smear is a screening test for cervical cancer. False negative results occur with all screening tests, emphasizing the need for rescreening at recommended intervals, and clinical correlation. Normal [facility] Comment on above: Order Comment: Speci men Type: FLUID SPECIMENOrdering Facility: [facility] Address: [address] [place] [address] Performed By: #### L [id number] ####[facility] LAB[facility]IA [id number] [place] [id number] [place] PAP MONOGRAM MACHINE OPERATOR COMMENT This specimen has be en analyzed by the [employer] System, an automated imaging and review system, which assists the laboratory in evaluating cells on ThinPrep Pap tests. Following automated imaging, selected cazares from every slide are reviewed by a train station agent. Normal [facility] Comment on above: Order Comment: Speci men Type: FLUID SPECIMENOrdering Facility: [facility] Address: [address] [place] [address] Performed By: #### L [id number] ####[facility] [id number] [place] [address] [place] Reagin and Treponema pallidu m IgG and IgM [Interp]on 07-10-2024 T. pallidum IgG+IgM IA Ql (S) Non-Reactive Normal Nonreactive [facility] Comment on above: Order Comment: Speci men Type: BLOOD SPECIMENOrdering Facility: [facility] Address: [address] [place] [address] Performed By: #### 3 1201-7, 32899-2 ####[facility] [id number] [place] [address] [place] Reagin+T pallidum IgG+IgM Se rPl-Impon 07-10-2024 Reagin and Treponema pallidum IgG and IgM [Interp] Cannot exclude recent Treponemal infection if specimen collected within 7-10 days after appearance of suspect lesions or 2-3 weeks after an exposure. Clinical correlation is required. Normal [facility] Comment on above: Order Comment: Speci men Type: BLOOD SPECIMENOrdering Facility: [facility] Address: [address] [place] [address] Performed By: #### 3 1201-7, 24327-4 ####[facility] [id number] [place] [id number] [place] TRICHOMONAS VAGINALIS NAATon 07-10-2024 T. vaginalis DNA DANIEL+probe Ql (Unsp spec) Negative Normal Negative for Trichomonas vaginalis by amplification [facility] Comment on above: Order Comment: Speci men Type: SWABOrdering Facility: [facility] Address: [address] [place] [address] Performed By: #### T RVAMP, 24577-0 ####[facility] [id number] [place] [address] [place] TSH SerPl-aCncon 07-10-2024 TSH Qn 1.140 m[IU]/L Normal 0.270-4.200 [facility] Comment on above: Order Comment: Speci men Type: BLOOD SPECIMENOrdering Facility: [facility] Address: [address] [place] [address] Result Comment: If t he patient is , TSH reference range varies by gestational period: First Trimester (weeks 9-12): 0.180-2.990 mIU/L Second Trimester: 0.110-3.980 mIU/L Third Trimester: 0.480-4.710 mIU/L Kelvin Swain et al. A Practical Approach for the Verifications and Determination of Site- and Trimester-Specific Reference Intervals for Thyroid Function tests in . Thyroid, 2019:29:3:412-420. Dangelo Raya, et al. 2017 Guidelines of the [place] Thyroid Association for the Diagnosis and Management of Thyroid Disease during and the . Thyroid, 2017:27:3:315-389. Performed By: #### 3 016-3 ####[facility] [id number] [place] [address] [place] Dipak 06-24-2024 CNPN Telephone (INTMIN) KATHLEEN VILLA ([id number]) 1995 F CHT Date Time Provider Department [...] Insulin Lispro. [facility] Discussed with provider in office Please advise Jessica Guerrero APRN.FRIEDA 06/25/2024 1:58 PM Signed I recommend she sees certified diabetes educator to review pump options- I am [...] to patient via phone. Patient verbalizes understanding. Xtone message sent for patients reference as requested. [...] every 24 hours.Disp: 38.7 mLRfl: 1 Insulin [place], Disposable, (PEN NEEDLE) 32 gauge x 5/32Inject [...] Units subcutaneously every 24 hours. - Insulin [place], Disposable, (PEN NEEDLE) 32 gauge x 5/32 [...] TEST STRIPS) (more content not included)... Normal [facility] 06-17-2024 CNPN Telephone (QAMAR) KATHLEEN VILLA ([id number]) 1995 F T Date Time Provider Department [...] (post-traumatic stress disorder) [F43.10] 12/25/2012 DVT prophylaxis [LLL1020] 12/25/2012 09/04/2013 DISPOSITION AND FOLLOW-UP [V999.01] 12/25/2012 09/04/2013 HTN (hypertension) [I10] Hypertension in , antepartum [O16.9] 09/19/2013 01/08/2014 GBS (group B Streptococcus carrier), +RV cultur*11/11/2013 04/16/2014 [Z34.90] 11/22/2013 04/16/2014 Diabetes mellitus in (HCC) [O24.919] 12/25/2013 04/16/2014 Diabetic ketoacidosis without coma associated w*01/08/2014 02/04/2023 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 Normal [facility] Comment on above: Performed By: #### M 200.1000 ####[facility] [address] [place], [address] Basic Metabolic Profile (BMP )on 06-11-2024 BUN/CRE 9.8 RATIO Low 06-16 [facility] Comment on above: Performed By: #### L 500.2500 ####[facility] [address] [place], [address] CA,Total 8.7 mg/dL Normal 8.5-10.1 [facility] Comment on above: Performed By: #### L 500.2500 ####[facility] [address] [place], [address] Chloride [Moles/Vol] 107 mmol/L Normal 98-107 [facility] Comment on above: Performed By: #### L 500.2500 ####[facility] [address] [place], [address] CO2 [Moles/Vol] 27.0 mmol/L Normal 21.0-32.0 [facility] Comment on above: Performed By: #### L 500.2500 ####[facility] [address] [place], [address] Creatinine [Mass/Vol] 0.82 mg/dL Normal 0.55-1.02 [facility] Comment on above: Result Comment: The validity of the calculated GFR GFRAA in patients over70 years has not been determined. Clinical correlation isessential. Performed By: #### L 500.2500 ####[facility] [address] [place], [address] ECRCL 105.79 ml/min Normal [facility] Comment on above: Performed By: #### L 500.2500 ####[facility] [address] [place] [id number] EST GFR - AA 106 mL/min Normal >60 [facility] Comment on above: Result Comment: Afri can Nauruan GFR Calc Performed By: #### L 500.2500 ####[facility] [address] [place] [address] GAP 6 Normal 5-15 [facility] Comment on above: Performed By: #### L 500.2500 ####[facility] [address] [place] [address] GFR/1.73 sq M.predicted among non-blacks MDRD (S/P/Bld) [Vol rate/Area] 87 mL/min/{1.73_m2} Normal >60 [facility] Comment on above: Result Comment: Non- GFR Calc Performed By: #### L 500.2500 ####[facility] [address] [place] [id number] Glucose [Mass/Vol] 194 mg/dL High 74-106 [facility] Comment on above: Result Comment: Fast ing Glucose result greater than or equal to 126 mg/dLsuggests DIABETES MELLITUS per A.D.A. criteria. Performed By: #### L 500.2500 ####[facility] [address] [place], [address] Potassium [Moles/Vol] 3.3 mmol/L Low 3.5-5.1 [facility] Comment on above: Performed By: #### L 500.2500 ####[facility] [address] [place], [address] Sodium [Moles/Vol] 140 mmol/L Normal 136-145 [facility] Comment on above: Performed By: #### L 500.2500 ####[facility] [address] [place], [address] Urea nitrogen [Mass/Vol] 8 mg/dL Normal - [facility] Comment on above: Performed By: #### L 500.2500 ####[facility] [address] [place], [address] Bedside Glucoseon 06-11-2024 FINGERSTICK GLU 116 mg/dL High 74-106 [facility] Comment on above: Result Comment: Dr Ej foreman FollowedMANAGEMENT OF PATIENT CARE PER NURSING PROTOCOL Performed By: #### L 501.080 ####[facility] [address] [place], [address] FINGERSTICK GLU 180 mg/dL High 74-106 [facility] Comment on above: Result Comment: EDGAR GEMENT OF PATIENT CARE PER NURSING PROTOCOL Performed By: #### L 501.080 ####[facility] [address] [place], [address] Discharge Instructionon 05-28 Discharge Instruction Normal [facility] Acetone Serumon 06-10-2024 ACETONE SERUM Negative Normal NEG [facility] Comment on above: Performed By: #### L 501.6900 ####[facility] [address] [place], [address] Basic Metabolic Profile (BMP )on 06-10-2024 BUN Normal - [facility] Comment on above: Result Comment: Mary sanchez via OM: Ordered Performed By: #### L 500.2500 ####[facility] [address] [place], [address] BUN/CRE Normal 06-16 [facility] Comment on above: Result Comment: Canc elled via OM: MD Ordered Performed By: #### L 500.2500 ####[facility] [address] [place], [address] CA,Total Normal 8.5-10.1 [facility] Comment on above: Result Comment: Canc elled via OM: MD Ordered Performed By: #### L 500.2500 ####[facility] [address] [place], [address] CL Normal 98-107 [facility] Comment on above: Result Comment: Canc elled via OM: MD Ordered Performed By: #### L 500.2500 ####[facility] [address] [place], [address] CO2 Normal 21.0-32.0 [facility] Comment on above: Result Comment: Canc elled via OM: MD Ordered Performed By: #### L 500.2500 ####[facility] [address] [place], [address] CREAT,SERUM Normal 0.55-1.02 [facility] Comment on above: Result Comment: Canc elled via OM: MD Ordered Performed By: #### L 500.2500 ####[facility] [address] [place], [address] EST GFR Normal >60 [facility] Comment on above: Result Comment: Canc elled via OM: MD Ordered Performed By: #### L 500.2500 ####[facility] [address] [place], [address] EST GFR - AA Normal >60 [facility] Comment on above: Result Comment: Canc elled via OM: MD Ordered Performed By: #### L 500.2500 ####[facility] [address] [place], [address] GAP Normal 5-15 [facility] Comment on above: Result Comment: Canc elled via OM: MD Ordered Performed By: #### L 500.2500 ####[facility] [address] [place], [address] GLU Normal 74-106 [facility] Comment on above: Result Comment: Canc elled via OM: MD Ordered Performed By: #### L 500.2500 ####[facility] [address] [place], [address] Potassium Normal 3.5-5.1 [facility] Comment on above: Result Comment: Canc elled via OM: MD Ordered Performed By: #### L 500.2500 ####[facility] [address] [place], [address] Basic Metabolic Profile (BMP) Normal 136-145 [facility] Comment on above: Result Comment: Canc elled via OM: MD Ordered Performed By: #### L 500.2500 ####[facility] [address] [place], [address] BUN/CRE 9.8 RATIO Low 10-20 [facility] Comment on above: Performed By: #### L 500.2500 ####[facility] [address] [place], [address] CA,Total 7.9 mg/dL Low 8.5-10.1 [facility] Comment on above: Performed By: #### L 500.2500 ####[facility] [address] [place], [address] Chloride [Moles/Vol] 107 mmol/L Normal 98-107 [facility] Comment on above: Performed By: #### L 500.2500 ####[facility] [address] [place], [address] CO2 [Moles/Vol] 25.0 mmol/L Normal 21.0-32.0 [facility] Comment on above: Performed By: #### L 500.2500 ####[facility] [address] [place], [address] Creatinine [Mass/Vol] 0.61 mg/dL Normal 0.55-1.02 [facility] Comment on above: Result Comment: The validity of the calculated GFR GFRAA in patients over70 years has not been determined. Clinical correlation isessential. Performed By: #### L 500.2500 ####[facility] [address] [place], [address] ECRCL 142.21 ml/min Normal [facility] Comment on above: Performed By: #### L 500.2500 ####[facility] [address] [place], [address] EST GFR - AA 148 mL/min Normal >60 [facility] Comment on above: Result Comment: Afri can Nauruan GFR Calc Performed By: #### L 500.2500 ####[facility] [address] [place], [address] GAP 10 Normal 5-15 [facility] Comment on above: Performed By: #### L 500.2500 ####[facility] [address] [place], [address] GFR/1.73 sq M.predicted among non-blacks MDRD (S/P/Bld) [Vol rate/Area] 123 mL/min/{1.73_m2} Normal >60 [facility] Comment on above: Result Comment: Non- GFR Calc Performed By: #### L 500.2500 ####[facility] [address] [place], [address] Glucose [Mass/Vol] 89 mg/dL Normal 74-106 [facility] Comment on above: Performed By: #### L 500.2500 ####[facility] [address] [place], [address] Potassium [Moles/Vol] 3.0 mmol/L Low 3.5-5.1 [facility] Comment on above: Performed By: #### L 500.2500 ####[facility] [address] [place], [address] Sodium [Moles/Vol] 141 mmol/L Normal 136-145 [facility] Comment on above: Performed By: #### L 500.2500 ####[facility] [address] [place], [address] Urea nitrogen [Mass/Vol] 6 mg/dL Low 7-18 [facility] Comment on above: Performed By: #### L 500.2500 ####[facility] [address] [place], [address] BUN/CRE 11.2 RATIO Normal 10-20 [facility] Comment on above: Performed By: #### L 501.5200, L500.2500, L100.0100, L501.2300 ####[facility] [address] [place], [address] CA,Total 8.0 mg/dL Low 8.5-10.1 [facility] Comment on above: Performed By: #### L 501.5200, L500.2500, L100.0100, L501.2300 ####[facility] [address] [place], [address] Chloride [Moles/Vol] 107 mmol/L Normal 98-107 [facility] Comment on above: Performed By: #### L 501.5200, L500.2500, L100.0100, L501.2300 ####[facility] [address] [place], [address] CO2 [Moles/Vol] 24.0 mmol/L Normal 21.0-32.0 [facility] Comment on above: Performed By: #### L 501.5200, L500.2500, L100.0100, L501.2300 ####[facility] [address] [place], [address] Creatinine [Mass/Vol] 0.63 mg/dL Normal 0.55-1.02 [facility] Comment on above: Result Comment: The validity of the calculated GFR GFRAA in patients over70 years has not been determined. Clinical correlation isessential. Performed By: #### L 501.5200, L500.2500, L100.0100, L501.2300 ####[facility] [address] [place], [address] ECRCL 137.70 ml/min Normal [facility] Comment on above: Performed By: #### L 501.5200, L500.2500, L100.0100, L501.2300 ####[facility] [address] [place], [address] EST GFR - AA 144 mL/min Normal >60 [facility] Comment on above: Result Comment: Afri can Nauruan GFR Calc Performed By: #### L 501.5200, L500.2500, L100.0100, L501.2300 ####[facility] [address] [place], [address] GAP 7 Normal 5-15 [facility] Comment on above: Performed By: #### L 501.5200, L500.2500, L100.0100, L501.2300 ####[facility] [address] [place], [address] GFR/1.73 sq M.predicted among non-blacks MDRD (S/P/Bld) [Vol rate/Area] 119 mL/min/{1.73_m2} Normal >60 [facility] Comment on above: Result Comment: Non- GFR Calc Performed By: #### L 501.5200, L500.2500, L100.0100, L501.2300 ####[facility] [address] [place], [address] Glucose [Mass/Vol] 127 mg/dL High 74-106 [facility] Comment on above: Result Comment: Fast ing Glucose result greater than or equal to 126 mg/dLsuggests DIABETES MELLITUS per A.D.A. criteria. Performed By: #### L 501.5200, L500.2500, L100.0100, L501.2300 ####[facility] [address] [place], [address] Potassium [Moles/Vol] 3.7 mmol/L Normal 3.5-5.1 [facility] Comment on above: Performed By: #### L 501.5200, L500.2500, L100.0100, L501.2300 ####[facility] [address] [place], [address] Sodium [Moles/Vol] 138 mmol/L Normal 136-145 [facility] Comment on above: Performed By: #### L 501.5200, L500.2500, L100.0100, L501.2300 ####[facility] [address] [place], [address] Urea nitrogen [Mass/Vol] 7 mg/dL Normal 7-18 [facility] Comment on above: Performed By: #### L 501.5200, L500.2500, L100.0100, L501.2300 ####[facility] [address] [place], [address] BUN/CRE 11.2 RATIO Normal 10-20 [facility] Comment on above: Performed By: #### L 500.2500 ####[facility] [address] [place], [address] CA,Total 7.9 mg/dL Low 8.5-10.1 [facility] Comment on above: Performed By: #### L 500.2500 ####[facility] [address] [place], [address] Chloride [Moles/Vol] 107 mmol/L Normal 98-107 [facility] Comment on above: Performed By: #### L 500.2500 ####[facility] [address] [place], [address] CO2 [Moles/Vol] 25.0 mmol/L Normal 21.0-32.0 [facility] Comment on above: Performed By: #### L 500.2500 ####[facility] [address] [place], [address] Creatinine [Mass/Vol] 0.81 mg/dL Normal 0.55-1.02 [facility] Comment on above: Result Comment: The validity of the calculated GFR GFRAA in patients over70 years has not been determined. Clinical correlation isessential. Performed By: #### L 500.2500 ####[facility] [address] [place], [address] ECRCL 107.10 ml/min Normal [facility] Comment on above: Performed By: #### L 500.2500 ####[facility] [address] [place], [address] EST GFR - AA 108 mL/min Normal >60 [facility] Comment on above: Result Comment: Afri can Nauruan GFR Calc Performed By: #### L 500.2500 ####[facility] [address] [place], [address] GAP 7 Normal 5-15 [facility] Comment on above: Performed By: #### L 500.2500 ####[facility] [address] [place], [address] GFR/1.73 sq M.predicted among non-blacks MDRD (S/P/Bld) [Vol rate/Area] 89 mL/min/{1.73_m2} Normal >60 [facility] Comment on above: Result Comment: Non- GFR Calc Performed By: #### L 500.2500 ####[facility] [address] [place], [address] Glucose [Mass/Vol] 185 mg/dL High 74-106 [facility] Comment on above: Result Comment: Fast ing Glucose result greater than or equal to 126 mg/dLsuggests DIABETES MELLITUS per A.D.A. criteria. Performed By: #### L 500.2500 ####[facility] [address] [place], [address] Potassium [Moles/Vol] 2.9 mmol/L Low 3.5-5.1 [facility] Comment on above: Performed By: #### L 500.2500 ####[facility] [address] [place], [address] Sodium [Moles/Vol] 140 mmol/L Normal 136-145 [facility] Comment on above: Performed By: #### L 500.2500 ####[facility] [address] [place], [address] Urea nitrogen [Mass/Vol] 9 mg/dL Normal 7-18 [facility] Comment on above: Performed By: #### L 500.2500 ####[facility] [address] [place], [address] Bedside Glucoseon 06-10-2024 FINGERSTICK GLU 122 mg/dL High 74-106 [facility] Comment on above: Result Comment: EDGAR GEMENT OF PATIENT CARE PER NURSING PROTOCOL Performed By: #### L 501.080 ####[facility] [address] [place], [address] FINGERSTICK GLU 120 mg/dL High -106 [facility] Comment on above: Result Comment: EDGAR GEMENT OF PATIENT CARE PER NURSING PROTOCOL Performed By: #### L 501.080 ####[facility] [address] [place], [address] FINGERSTICK GLU 158 mg/dL High 74-106 [facility] Comment on above: Result Comment: EDGAR GEMENT OF PATIENT CARE PER NURSING PROTOCOL Performed By: #### L 501.080 ####[facility] [address] [place], [address] FINGERSTICK GLU 93 mg/dL Normal 74-106 [facility] Comment on above: Result Comment: EDGAR GEMENT OF PATIENT CARE PER NURSING PROTOCOL Performed By: #### L 501.080 ####[facility] [address] [place], [address] FINGERSTICK GLU 85 mg/dL Normal 74-106 [facility] Comment on above: Result Comment: EDGAR GEMENT OF PATIENT CARE PER NURSING PROTOCOL Performed By: #### L 501.080 ####[facility] [address] [place], [address] FINGERSTICK GLU 67 mg/dL Low 74-106 [facility] Comment on above: Result Comment: EDGAR GEMENT OF PATIENT CARE PER NURSING PROTOCOL Performed By: #### L 501.080 ####[facility] [address] [place], [address] FINGERSTICK GLU 64 mg/dL Low 74-106 [facility] Comment on above: Result Comment: EDGAR GEMENT OF PATIENT CARE PER NURSING PROTOCOL Performed By: #### L 501.080 ####[facility] [address] [place], [address] FINGERSTICK GLU 74 mg/dL Normal 74-106 [facility] Comment on above: Result Comment: EDGAR GEMENT OF PATIENT CARE PER NURSING PROTOCOL Performed By: #### L 501.080 ####[facility] [address] [place], [address] FINGERSTICK GLU 124 mg/dL High 74-106 [facility] Comment on above: Result Comment: EDGAR GEMENT OF PATIENT CARE PER NURSING PROTOCOL Performed By: #### L 501.080 ####[facility] [address] [place], [address] FINGERSTICK GLU 146 mg/dL High 74-106 [facility] Comment on above: Result Comment: EDGAR GEMENT OF PATIENT CARE PER NURSING PROTOCOL Performed By: #### L 501.080 ####[facility] [address] [place], [address] FINGERSTICK GLU 122 mg/dL High 74-106 [facility] Comment on above: Result Comment: EDGAR GEMENT OF PATIENT CARE PER NURSING PROTOCOL Performed By: #### L 501.080 ####[facility] [address] [place], [address] FINGERSTICK GLU 286 mg/dL High -106 [facility] Comment on above: Result Comment: EDGAR GEMENT OF PATIENT CARE PER NURSING PROTOCOL Performed By: #### L 501.080 ####[facility] [address] [place], [address] FINGERSTICK GLU 233 mg/dL High 74-106 [facility] Comment on above: Result Comment: EDGAR GEMENT OF PATIENT CARE PER NURSING PROTOCOL Performed By: #### L 501.080 ####[facility] [address] [place], [address] FINGERSTICK GLU 194 mg/dL High -106 [facility] Comment on above: Result Comment: EDGAR GEMENT OF PATIENT CARE PER NURSING PROTOCOL Performed By: #### L 501.080 ####[facility] [address] [place], [address] FINGERSTICK GLU 195 mg/dL High 74-106 [facility] Comment on above: Result Comment: EDGAR GEMENT OF PATIENT CARE PER NURSING PROTOCOL Performed By: #### L 501.080 ####[facility] [address] [place], [address] CBC W/Diff, Automatedon 10-1 Absolute Lymph 2.08 X10 3/uL Normal 0.83-4.51 [facility] Comment on above: Performed By: #### L 501.5200, L500.2500, L100.0100, L501.2300 ####[facility] [address] [place], [address] Absolute Neut 11.6 X10 3/uL High 2.0-7.7 [facility] Comment on above: Performed By: #### L 501.5200, L500.2500, L100.0100, L501.2300 ####[facility] [address] [place], [address] Basophils/100 WBC (Bld) 0.3 % Normal 0-1 [facility] Comment on above: Performed By: #### L 501.5200, L500.2500, L100.0100, L501.2300 ####[facility] [address] [place], [address] Eosinophils/100 WBC (Bld) 0.1 % Normal 0-5 [facility] Comment on above: Performed By: #### L 501.5200, L500.2500, L100.0100, L501.2300 ####[facility] [address] [place], [address] Erythrocyte distribution width (RBC) [Ratio] 12.6 % Normal 11.6-14.6 [facility] Comment on above: Performed By: #### L 501.5200, L500.2500, L100.0100, L501.2300 ####[facility] [address] [place], [address] Hematocrit (Bld) [Volume fraction] 36.7 % Low 37-47 [facility] Comment on above: Performed By: #### L 501.5200, L500.2500, L100.0100, L501.2300 ####[facility] [address] [place], [address] Hemoglobin (Bld) [Mass/Vol] 12.2 g/dL Normal 12.0-15.0 [facility] Comment on above: Performed By: #### L 501.5200, L500.2500, L100.0100, L501.2300 ####[facility] [address] [place], [address] IG% 1.100 High 0.0-0.9 [facility] Comment on above: Result Comment: IG% - Immature Granulocytes (promyelocytes, myelocytes andmetamyelocytes) > 1% indicates that a LEFT SHIFT is Present. Performed By: #### L 501.5200, L500.2500, L100.0100, L501.2300 ####[facility] [address] [place], [address] Lymphocytes/100 WBC (Bld) 14.1 % Low 19-41 [facility] Comment on above: Performed By: #### L 501.5200, L500.2500, L100.0100, L501.2300 ####[facility] [address] [place], [address] MCH (RBC) [Entitic mass] 29.5 pg Normal 27.0-32.0 [facility] Comment on above: Performed By: #### L 501.5200, L500.2500, L100.0100, L501.2300 ####[facility] [address] [place], [address] MCHC (RBC) [Mass/Vol] 33.2 g/dL Normal 32-36 [facility] Comment on above: Performed By: #### L 501.5200, L500.2500, L100.0100, L501.2300 ####[facility] [address] [place], [address] MCV (RBC) [Entitic vol] 88.9 fL Normal 81-99 [facility] Comment on above: Performed By: #### L 501.5200, L500.2500, L100.0100, L501.2300 ####[facility] [address] [place], [address] Monocytes/100 WBC (Bld) 5.9 % Normal 0-10 [facility] Comment on above: Performed By: #### L 501.5200, L500.2500, L100.0100, L501.2300 ####[facility] [address] [place], [address] Neutrophils/100 WBC (Bld) 78.5 % High 47-70 [facility] Comment on above: Performed By: #### L 501.5200, L500.2500, L100.0100, L501.2300 ####[facility] [address] [place], [address] Nucleated RBC (Bld) [#/Vol] 0 10*3/uL Normal 0-5 [facility] Comment on above: Performed By: #### L 501.5200, L500.2500, L100.0100, L501.2300 ####[facility] [address] [place], [address] Platelet mean volume (Bld) [Entitic vol] 11.8 fL Normal 6.2-12.0 [facility] Comment on above: Performed By: #### L 501.5200, L500.2500, L100.0100, L501.2300 ####[facility] [address] [place], [address] Platelets (Bld) [#/Vol] 187 10*3/uL Normal 150-450 [facility] Comment on above: Performed By: #### L 501.5200, L500.2500, L100.0100, L501.2300 ####[facility] [address] [place], [address] RBC (Bld) [#/Vol] 4.13 10*6/uL Low 4.2-5.4 [facility] Comment on above: Performed By: #### L 501.5200, L500.2500, L100.0100, L501.2300 ####[facility] [address] [place], [address] RDW SD 41.1 fl Normal 35.1-43.9 [facility] Comment on above: Performed By: #### L 501.5200, L500.2500, L100.0100, L501.2300 ####[facility] [address] [place], [address] WBC (Bld) [#/Vol] 14.8 10*3/uL High 4.4-11.0 [facility] Comment on above: Performed By: #### L 501.5200, L500.2500, L100.0100, L501.2300 ####[facility] [address] [place], [address] Magnesiumon 06-10-2024 Magnesium [Mass/Vol] 2.2 mg/dL Normal 1.6-2.6 [facility] Comment on above: Performed By: #### L 501.5200, L500.2500, L100.0100, L501.2300 ####[facility] [address] [place], [address] Phosphoruson 06-10-2024 Phosphate [Mass/Vol] 2.3 mg/dL Low 2.5-4.9 [facility] Comment on above: Performed By: #### L 501.2300 ####[facility] [address] [place], [address] Phosphate [Mass/Vol] 1.8 mg/dL Low 2.5-4.9 [facility] Comment on above: Performed By: #### L 501.5200, L500.2500, L100.0100, L501.2300 ####[facility] [address] [place], [address] Acetone Serumon 06-09-2024 ACETONE SERUM LARGE Abnormal NEG [facility] Comment on above: Performed By: #### L 501.6900 ####[facility] [address] [place], [address] Basic Metabolic Profile (BMP )on 06-09-2024 BUN/CRE 12.1 RATIO Normal 10-20 [facility] Comment on above: Performed By: #### L 500.2500 ####[facility] [address] [place], [address] CA,Total 8.0 mg/dL Low 8.5-10.1 [facility] Comment on above: Performed By: #### L 500.2500 ####[facility] [address] [place], [address] Chloride [Moles/Vol] 103 mmol/L Normal 98-107 [facility] Comment on above: Performed By: #### L 500.2500 ####[facility] [address] [place], [address] CO2 [Moles/Vol] 21.0 mmol/L Normal 21.0-32.0 [facility] Comment on above: Performed By: #### L 500.2500 ####[facility] [address] [place], [address] Creatinine [Mass/Vol] 0.74 mg/dL Normal 0.55-1.02 [facility] Comment on above: Result Comment: The validity of the calculated GFR GFRAA in patients over70 years has not been determined. Clinical correlation isessential. Performed By: #### L 500.2500 ####[facility] [address] [place], [address] ECRCL 117.23 ml/min Normal [facility] Comment on above: Performed By: #### L 500.2500 ####[facility] [address] [place], [address] EST GFR - AA 118 mL/min Normal >60 [facility] Comment on above: Result Comment: Afri can Nauruan GFR Calc Performed By: #### L 500.2500 ####[facility] [address] [place], [address] GAP 12 Normal 5-15 [facility] Comment on above: Performed By: #### L 500.2500 ####[facility] [address] [place], [address] GFR/1.73 sq M.predicted among non-blacks MDRD (S/P/Bld) [Vol rate/Area] 98 mL/min/{1.73_m2} Normal >60 [facility] Comment on above: Result Comment: Non- GFR Calc Performed By: #### L 500.2500 ####[facility] [address] [place], [address] Glucose [Mass/Vol] 351 mg/dL High 74-106 [facility] Comment on above: Result Comment: Gluc ose result greater than or equal to 200 mg/dLsuggests DIABETES MELLITUS per A.D.A. criteria. Performed By: #### L 500.2500 ####[facility] [address] [place], [address] Potassium [Moles/Vol] 3.4 mmol/L Low 3.5-5.1 [facility] Comment on above: Performed By: #### L 500.2500 ####[facility] [address] [place], [address] Sodium [Moles/Vol] 136 mmol/L Normal 136-145 [facility] Comment on above: Performed By: #### L 500.2500 ####[facility] [address] [place], [address] Urea nitrogen [Mass/Vol] 9 mg/dL Normal 7-18 [facility] Comment on above: Performed By: #### L 500.2500 ####[facility] [address] [place], [address] BUN Normal 7-18 [facility] Comment on above: Result Comment: Canc elled via OM: MD Ordered Performed By: #### L 500.2500 ####[facility] [address] [place], [address] Order Comment: Call MD with results STAT BUN/CRE Normal 10-20 [facility] Comment on above: Result Comment: Canc elled via OM: MD Ordered Performed By: #### L 500.2500 ####[facility] [address] [place], [address] Order Comment: Call MD with results STAT CA,Total Normal 8.5-10.1 [facility] Comment on above: Result Comment: Canc elled via OM: MD Ordered Performed By: #### L 500.2500 ####[facility] [address] [place], [address] Order Comment: Call MD with results STAT CL Normal 98-107 [facility] Comment on above: Result Comment: Canc elled via OM: MD Ordered Performed By: #### L 500.2500 ####[facility] [address] [place], [address] Order Comment: Call MD with results STAT CO2 Normal 21.0-32.0 [facility] Comment on above: Result Comment: Canc elled via OM: MD Ordered Performed By: #### L 500.2500 ####[facility] [address] [place], [address] Order Comment: Call MD with results STAT CREAT,SERUM Normal 0.55-1.02 [facility] Comment on above: Result Comment: Canc elled via OM: MD Ordered Performed By: #### L 500.2500 ####[facility] [address] [place], [address] Order Comment: Call MD with results STAT EST GFR Normal >60 [facility] Comment on above: Result Comment: Canc elled via OM: MD Ordered Performed By: #### L 500.2500 ####[facility] [address] [place], [address] Order Comment: Call MD with results STAT EST GFR - AA Normal >60 [facility] Comment on above: Result Comment: Canc elled via OM: MD Ordered Performed By: #### L 500.2500 ####[facility] [address] [place], [address] Order Comment: Call MD with results STAT GAP Normal 5-15 [facility] Comment on above: Result Comment: Canc elled via OM: MD Ordered Performed By: #### L 500.2500 ####[facility] [address] [place], [address] Order Comment: Call MD with results STAT GLU Normal 74-106 [facility] Comment on above: Result Comment: Canc elled via OM: MD Ordered Performed By: #### L 500.2500 ####[facility] [address] [place], [address] Order Comment: Call MD with results STAT Potassium Normal 3.5-5.1 [facility] Comment on above: Result Comment: Canc elled via OM: MD Ordered Performed By: #### L 500.2500 ####[facility] [address] [place], [address] Order Comment: Call MD with results STAT Basic Metabolic Profile (BMP) Normal 136-145 [facility] Comment on above: Result Comment: Canc elled via OM: MD Ordered Performed By: #### L 500.2500 ####[facility] [address] [place], [address] Order Comment: Call MD with results STAT BUN Normal 7-18 [facility] Comment on above: Order Comment: Call MD with results STAT Result Comment: NOT COLLECTED. Performed By: #### L 500.2500 ####[facility] [address] [place], [address] BUN/CRE Normal 10-20 [facility] Comment on above: Order Comment: Call MD with results STAT Result Comment: NOT COLLECTED. Performed By: #### L 500.2500 ####[facility] [address] [place], [address] CA,Total Normal 8.5-10.1 [facility] Comment on above: Order Comment: Call MD with results STAT Result Comment: NOT COLLECTED. Performed By: #### L 500.2500 ####[facility] [address] [place], [address] CL Normal 98-107 [facility] Comment on above: Order Comment: Call MD with results STAT Result Comment: NOT COLLECTED. Performed By: #### L 500.2500 ####[facility] [address] [place], [address] CO2 Normal 21.0-32.0 [facility] Comment on above: Order Comment: Call MD with results STAT Result Comment: NOT COLLECTED. Performed By: #### L 500.2500 ####[facility] [address] [place], [address] CREAT,SERUM Normal 0.55-1.02 [facility] Comment on above: Order Comment: Call MD with results STAT Result Comment: NOT COLLECTED. Performed By: #### L 500.2500 ####[facility] [address] [place], [address] EST GFR Normal >60 [facility] Comment on above: Order Comment: Call MD with results STAT Result Comment: NOT COLLECTED. Performed By: #### L 500.2500 ####[facility] [address] [place], [address] EST GFR - AA Normal >60 [facility] Comment on above: Order Comment: Call MD with results STAT Result Comment: NOT COLLECTED. Performed By: #### L 500.2500 ####[facility] [address] [place], [address] GAP Normal 5-15 [facility] Comment on above: Order Comment: Call MD with results STAT Result Comment: NOT COLLECTED. Performed By: #### L 500.2500 ####[facility] [address] [place], [address] GLU Normal 74-106 [facility] Comment on above: Order Comment: Call MD with results STAT Result Comment: NOT COLLECTED. Performed By: #### L 500.2500 ####[facility] [address] [place], [address] Potassium Normal 3.5-5.1 [facility] Comment on above: Order Comment: Call MD with results STAT Result Comment: NOT COLLECTED. Performed By: #### L 500.2500 ####[facility] [address] [place], [address] Basic Metabolic Profile (BMP) Normal 136-145 [facility] Comment on above: Order Comment: Call MD with results STAT Result Comment: NOT COLLECTED. Performed By: #### L 500.2500 ####[facility] [address] [place], [address] Bedside Glucoseon 06-09-2024 FINGERSTICK GLU 322 mg/dL High 74-106 [facility] Comment on above: Result Comment: EDGAR GEMENT OF PATIENT CARE PER NURSING PROTOCOL Performed By: #### L 501.080 ####[facility] [address] [place], [address] FINGERSTICK GLU 354 mg/dL High 74-106 [facility] Comment on above: Result Comment: EDGAR GEMENT OF PATIENT CARE PER NURSING PROTOCOL Performed By: #### L 501.080 ####[facility] [address] [place], [address] FINGERSTICK GLU 146 mg/dL High 74-106 [facility] Comment on above: Result Comment: EDGAR GEMENT OF PATIENT CARE PER NURSING PROTOCOL Performed By: #### L 501.080 ####[facility] [address] [place], [address] FINGERSTICK GLU 51 mg/dL Low 74-106 [facility] Comment on above: Result Comment: EDGAR GEMENT OF PATIENT CARE PER NURSING PROTOCOL Performed By: #### L 501.080 ####[facility] [address] [place], [address] FINGERSTICK GLU 72 mg/dL Low 74-106 [facility] Comment on above: Result Comment: EDGAR GEMENT OF PATIENT CARE PER NURSING PROTOCOL Performed By: #### L 501.080 ####[facility] [address] [place], [address] FINGERSTICK GLU 127 mg/dL High 74-106 [facility] Comment on above: Result Comment: EDGAR GEMENT OF PATIENT CARE PER NURSING PROTOCOL Performed By: #### L 501.080 ####[facility] [address] [place], [address] FINGERSTICK GLU 128 mg/dL High 74-106 [facility] Comment on above: Result Comment: EDGAR GEMENT OF PATIENT CARE PER NURSING PROTOCOL Performed By: #### L 501.080 ####[facility] [address] [place], [address] FINGERSTICK GLU 135 mg/dL High 74-106 [facility] Comment on above: Result Comment: EDGAR GEMENT OF PATIENT CARE PER NURSING PROTOCOL Performed By: #### L 501.080 ####[facility] [address] [place], [address] FINGERSTICK GLU 127 mg/dL High 74-106 [facility] Comment on above: Result Comment: EDGAR GEMENT OF PATIENT CARE PER NURSING PROTOCOL Performed By: #### L 501.080 ####[facility] [address] [place], [address] FINGERSTICK GLU 131 mg/dL High 74-106 [facility] Comment on above: Result Comment: EDGAR GEMENT OF PATIENT CARE PER NURSING PROTOCOL Performed By: #### L 501.080 ####[facility] [address] [place], [address] FINGERSTICK GLU 136 mg/dL High 74-106 [facility] Comment on above: Result Comment: EDGAR GEMENT OF PATIENT CARE PER NURSING PROTOCOL Performed By: #### L 501.080 ####[facility] [address] [place], [address] FINGERSTICK GLU 170 mg/dL High 74-106 [facility] Comment on above: Result Comment: EDGAR GEMENT OF PATIENT CARE PER NURSING PROTOCOL Performed By: #### L 501.080 ####[facility] [address] [place], [address] FINGERSTICK GLU 206 mg/dL High 74-106 [facility] Comment on above: Result Comment: EDGAR GEMENT OF PATIENT CARE PER NURSING PROTOCOL Performed By: #### L 501.080 ####[facility] [address] [place], [address] CBC W/Diff, Automatedon 10-1 -2023 Absolute Lymph 1.62 X10 3/uL Normal 0.83-4.51 [facility] Comment on above: Performed By: #### L 100.0100, L501.2300 ####[facility] [address] [place], [address] Absolute Neut 14.1 X10 3/uL High 2.0-7.7 [facility] Comment on above: Performed By: #### L 100.0100, L501.2300 ####[facility] [address] [place], [address] Basophils/100 WBC (Bld) 0.2 % Normal 0-1 [facility] Comment on above: Performed By: #### L 100.0100, L501.2300 ####[facility] [address] [place], [address] Eosinophils/100 WBC (Bld) 0.1 % Normal 0-5 [facility] Comment on above: Performed By: #### L 100.0100, L501.2300 ####[facility] [address] [place], [address] Erythrocyte distribution width (RBC) [Ratio] 12.9 % Normal 11.6-14.6 [facility] Comment on above: Performed By: #### L 100.0100, L501.2300 ####[facility] [address] [place], [address] Hematocrit (Bld) [Volume fraction] 34.0 % Low 37-47 [facility] Comment on above: Performed By: #### L 100.0100, L501.2300 ####[facility] [address] [place], [address] Hemoglobin (Bld) [Mass/Vol] 11.1 g/dL Low 12.0-15.0 [facility] Comment on above: Performed By: #### L 100.0100, L501.2300 ####[facility] [address] [place], [address] IG% 0.800 Normal 0.0-0.9 [facility] Comment on above: Result Comment: IG% - Immature Granulocytes (promyelocytes, myelocytes andmetamyelocytes) > 1% indicates that a LEFT SHIFT is Present. Performed By: #### L 100.0100, L501.2300 ####[facility] [address] [place], [address] Lymphocytes/100 WBC (Bld) 9.7 % Low 19-41 [facility] Comment on above: Performed By: #### L 100.0100, L501.2300 ####[facility] [address] [place], [address] MCH (RBC) [Entitic mass] 29.1 pg Normal 27.0-32.0 [facility] Comment on above: Performed By: #### L 100.0100, L501.2300 ####[facility] [address] [place], [address] MCHC (RBC) [Mass/Vol] 32.6 g/dL Normal 32-36 [facility] Comment on above: Performed By: #### L 100.0100, L501.2300 ####[facility] [address] [place], [address] MCV (RBC) [Entitic vol] 89.2 fL Normal 81-99 [facility] Comment on above: Performed By: #### L 100.0100, L501.2300 ####[facility] [address] [place], [address] Monocytes/100 WBC (Bld) 5.1 % Normal 0-10 [facility] Comment on above: Performed By: #### L 100.0100, L501.2300 ####[facility] [address] [place], [address] Neutrophils/100 WBC (Bld) 84.1 % High 47-70 [facility] Comment on above: Performed By: #### L 100.0100, L501.2300 ####[facility] [address] [place], [address] Nucleated RBC (Bld) [#/Vol] 0 10*3/uL Normal 0-5 [facility] Comment on above: Performed By: #### L 100.0100, L501.2300 ####[facility] [address] [place], [address] Platelet mean volume (Bld) [Entitic vol] 12.0 fL Normal 6.2-12.0 [facility] Comment on above: Performed By: #### L 100.0100, L501.2300 ####[facility] [address] [place], [address] Platelets (Bld) [#/Vol] 147 10*3/uL Low 150-450 [facility] Comment on above: Performed By: #### L 100.0100, L501.2300 ####[facility] [address] [place], [address] RBC (Bld) [#/Vol] 3.81 10*6/uL Low 4.2-5.4 [facility] Comment on above: Performed By: #### L 100.0100, L501.2300 ####[facility] [address] [place], [address] RDW SD 42.1 fl Normal 35.1-43.9 [facility] Comment on above: Performed By: #### L 100.0100, L501.2300 ####[facility] [address] [place], [address] WBC (Bld) [#/Vol] 16.7 10*3/uL High 4.4-11.0 [facility] Comment on above: Performed By: #### L 100.0100, L501.2300 ####[facility] [address] [place], [address] Comprehensive Metabolic Prof ilon 06-09-2024 Albumin [Mass/Vol] 3.0 g/dL Low 3.2-5.0 [facility] Comment on above: Order Comment: Call with results STAT Performed By: #### L 501.5200, L500.4050 ####[facility] [address] [place], [address] Albumin/Globulin [Mass ratio] 1.1 {ratio} Normal 0.9-2.4 [facility] Comment on above: Order Comment: Call MD with results STAT Performed By: #### L 501.5200, L500.4050 ####[facility] [address] [place], [address] ALK P 68 U/L Normal 45-117 [facility] Comment on above: Order Comment: Call MD with results STAT Performed By: #### L 501.5200, L500.4050 ####[facility] [address] [place], [address] ALT [Catalytic activity/Vol] 22 U/L Normal 13-56 [facility] Comment on above: Order Comment: Call MD with results STAT Performed By: #### L 501.5200, L500.4050 ####[facility] [address] [place], [address] AST [Catalytic activity/Vol] 12 U/L Low 15-37 [facility] Comment on above: Order Comment: Call MD with results STAT Performed By: #### L 501.5200, L500.4050 ####[facility] [address] [place], [address] Bilirubin [Mass/Vol] 0.80 mg/dL Normal 0.20-1.00 [facility] Comment on above: Order Comment: Call MD with results STAT Result Comment: For patients on eltrombopag therapy, use of Dimension Ivor TBIL is not recommended. Performed By: #### L 501.5200, L500.4050 ####[facility] [address] [place], [address] BUN/CRE 16.7 RATIO Normal 10-20 [facility] Comment on above: Order Comment: Call MD with results STAT Performed By: #### L 501.5200, L500.4050 ####[facility] [address] [place], [address] CA,Total 7.7 mg/dL Low 8.5-10.1 [facility] Comment on above: Order Comment: Call MD with results STAT Performed By: #### L 501.5200, L500.4050 ####[facility] [address] [place], [address] Chloride [Moles/Vol] 111 mmol/L High 98-107 [facility] Comment on above: Order Comment: Call MD with results STAT Performed By: #### L 501.5200, L500.4050 ####[facility] [address] [place], [address] CO2 [Moles/Vol] 23.0 mmol/L Normal 21.0-32.0 [facility] Comment on above: Order Comment: Call MD with results STAT Performed By: #### L 501.5200, L500.4050 ####[facility] [address] [place], [address] Creatinine [Mass/Vol] 0.60 mg/dL Normal 0.55-1.02 [facility] Comment on above: Order Comment: Call MD with results STAT Result Comment: The validity of the calculated GFR GFRAA in patients over70 years has not been determined. Clinical correlation isessential. Performed By: #### L 501.5200, L500.4050 ####[facility] [address] [place], [address] ECRCL 144.58 ml/min Normal [facility] Comment on above: Order Comment: Call MD with results STAT Performed By: #### L 501.5200, L500.4050 ####[facility] [address] [place], [address] EST GFR - AA 151 mL/min Normal >60 [facility] Comment on above: Order Comment: Call MD with results STAT Result Comment: Afri can Nauruan GFR Calc Performed By: #### L 501.5200, L500.4050 ####[facility] [address] [place], [address] GAP 6 Normal 5-15 [facility] Comment on above: Order Comment: Call MD with results STAT Performed By: #### L 501.5200, L500.4050 ####[facility] [address] [place], [address] GFR/1.73 sq M.predicted among non-blacks MDRD (S/P/Bld) [Vol rate/Area] 125 mL/min/{1.73_m2} Normal >60 [facility] Comment on above: Order Comment: Call MD with results STAT Result Comment: Non- GFR Calc Performed By: #### L 501.5200, L500.4050 ####[facility] [address] [place], [address] Globulin (S) [Mass/Vol] 2.7 g/dL Normal 2.2-4.2 [facility] Comment on above: Order Comment: Call MD with results STAT Performed By: #### L 501.5200, L500.4050 ####[facility] [address] [place], [address] Glucose [Mass/Vol] 142 mg/dL High 74-106 [facility] Comment on above: Order Comment: Call MD with results STAT Result Comment: Fast ing Glucose result greater than or equal to 126 mg/dLsuggests DIABETES MELLITUS per A.D.A. criteria. Performed By: #### L 501.5200, L500.4050 ####[facility] [address] [place], [address] Potassium [Moles/Vol] 3.0 mmol/L Low 3.5-5.1 [facility] Comment on above: Order Comment: Call MD with results STAT Performed By: #### L 501.5200, L500.4050 ####[facility] [address] [place], [address] Sodium [Moles/Vol] 139 mmol/L Normal 136-145 [facility] Comment on above: Order Comment: Call MD with results STAT Performed By: #### L 501.5200, L500.4050 ####[facility] [address] [place], [address] T PROT 5.7 g/dL Low 6.4-8.2 [facility] Comment on above: Order Comment: Call MD with results STAT Performed By: #### L 501.5200, L500.4050 ####[facility] [address] [place], [address] Urea nitrogen [Mass/Vol] 10 mg/dL Normal 7-18 [facility] Comment on above: Order Comment: Call MD with results STAT Performed By: #### L 501.5200, L500.4050 ####[facility] [address] [place], [address] Magnesiumon 06-09-2024 Magnesium [Mass/Vol] 2.0 mg/dL Normal 1.6-2.6 [facility] Comment on above: Order Comment: Call MD with results STAT Performed By: #### L 501.5200, L500.4050 ####[facility] [address] [place], [address] Phosphoruson 06-09-2024 Phosphate [Mass/Vol] 1.2 mg/dL Low 2.5-4.9 [facility] Comment on above: Performed By: #### L 100.0100, L501.2300 ####[facility] [address] [place], [address] Acetone Serumon 06-08-2024 ACETONE SERUM SMALL Abnormal NEG [facility] Comment on above: Order Comment: Comme nts: If not done in the ED Performed By: #### L 501.6900 ####[facility] [address] [place], [address] Basic Metabolic Profile (BMP )on 06-08-2024 BUN Normal 7-18 [facility] Comment on above: Order Comment: Call MD with results STAT Result Comment: NOT COLLECTED. Performed By: #### L 500.2500 ####[facility] [address] [place], [address] BUN/CRE Normal 10-20 [facility] Comment on above: Order Comment: Call MD with results STAT Result Comment: NOT COLLECTED. Performed By: #### L 500.2500 ####[facility] [address] [place], [address] CA,Total Normal 8.5-10.1 [facility] Comment on above: Order Comment: Call MD with results STAT Result Comment: NOT COLLECTED. Performed By: #### L 500.2500 ####[facility] [address] [place], [address] CL Normal 98-107 [facility] Comment on above: Order Comment: Call MD with results STAT Result Comment: NOT COLLECTED. Performed By: #### L 500.2500 ####[facility] [address] [place], [address] CO2 Normal 21.0-32.0 [facility] Comment on above: Order Comment: Call MD with results STAT Result Comment: NOT COLLECTED. Performed By: #### L 500.2500 ####[facility] [address] [place], [address] CREAT,SERUM Normal 0.55-1.02 [facility] Comment on above: Order Comment: Call MD with results STAT Result Comment: NOT COLLECTED. Performed By: #### L 500.2500 ####[facility] [address] [place], [address] EST GFR Normal >60 [facility] Comment on above: Order Comment: Call MD with results STAT Result Comment: NOT COLLECTED. Performed By: #### L 500.2500 ####[facility] [address] [place], [address] EST GFR - AA Normal >60 [facility] Comment on above: Order Comment: Call MD with results STAT Result Comment: NOT COLLECTED. Performed By: #### L 500.2500 ####[facility] [address] [place], [address] GAP Normal 5-15 [facility] Comment on above: Order Comment: Call MD with results STAT Result Comment: NOT COLLECTED. Performed By: #### L 500.2500 ####[facility] [address] [place], [address] GLU Normal 74-106 [facility] Comment on above: Order Comment: Call MD with results STAT Result Comment: NOT COLLECTED. Performed By: #### L 500.2500 ####[facility] [address] [place], [address] Potassium Normal 3.5-5.1 [facility] Comment on above: Order Comment: Call MD with results STAT Result Comment: NOT COLLECTED. Performed By: #### L 500.2500 ####[facility] [address] [place], [address] Basic Metabolic Profile (BMP) Normal 136-145 [facility] Comment on above: Order Comment: Call MD with results STAT Result Comment: NOT COLLECTED. Performed By: #### L 500.2500 ####[facility] [address] [place], [address] BUN Normal 7-18 [facility] Comment on above: Order Comment: Call MD with results STAT Result Comment: NOT COLLECTED. Performed By: #### L 500.2500 ####[facility] [address] [place], [address] BUN/CRE Normal 10-20 [facility] Comment on above: Order Comment: Call MD with results STAT Result Comment: NOT COLLECTED. Performed By: #### L 500.2500 ####[facility] [address] [place], [address] CA,Total Normal 8.5-10.1 [facility] Comment on above: Order Comment: Call MD with results STAT Result Comment: NOT COLLECTED. Performed By: #### L 500.2500 ####[facility] [address] [place], [address] CL Normal 98-107 [facility] Comment on above: Order Comment: Call MD with results STAT Result Comment: NOT COLLECTED. Performed By: #### L 500.2500 ####[facility] [address] [place], [address] CO2 Normal 21.0-32.0 [facility] Comment on above: Order Comment: Call MD with results STAT Result Comment: NOT COLLECTED. Performed By: #### L 500.2500 ####[facility] [address] [place], [address] CREAT,SERUM Normal 0.55-1.02 [facility] Comment on above: Order Comment: Call MD with results STAT Result Comment: NOT COLLECTED. Performed By: #### L 500.2500 ####[facility] [address] [place], [address] EST GFR Normal >60 [facility] Comment on above: Order Comment: Call MD with results STAT Result Comment: NOT COLLECTED. Performed By: #### L 500.2500 ####[facility] [address] [place], [address] EST GFR - AA Normal >60 [facility] Comment on above: Order Comment: Call MD with results STAT Result Comment: NOT COLLECTED. Performed By: #### L 500.2500 ####[facility] [address] [place], [address] GAP Normal 5-15 [facility] Comment on above: Order Comment: Call MD with results STAT Result Comment: NOT COLLECTED. Performed By: #### L 500.2500 ####[facility] [address] [place], [address] GLU Normal 74-106 [facility] Comment on above: Order Comment: Call MD with results STAT Result Comment: NOT COLLECTED. Performed By: #### L 500.2500 ####[facility] [address] [place], [address] Potassium Normal 3.5-5.1 [facility] Comment on above: Order Comment: Call MD with results STAT Result Comment: NOT COLLECTED. Performed By: #### L 500.2500 ####[facility] [address] [place], [address] Basic Metabolic Profile (BMP) Normal 136-145 [facility] Comment on above: Order Comment: Call MD with results STAT Result Comment: NOT COLLECTED. Performed By: #### L 500.2500 ####[facility] [address] [place], [address] BUN/CRE 19.6 RATIO Normal 10-20 [facility] Comment on above: Performed By: #### L 500.2500 ####[facility] [address] [place], [address] CA,Total 8.0 mg/dL Low 8.5-10.1 [facility] Comment on above: Performed By: #### L 500.2500 ####[facility] [address] [place], [address] Chloride [Moles/Vol] 112 mmol/L High 98-107 [facility] Comment on above: Performed By: #### L 500.2500 ####[facility] [address] [place], [address] CO2 [Moles/Vol] 18.0 mmol/L Low 21.0-32.0 [facility] Comment on above: Performed By: #### L 500.2500 ####[facility] [address] [place], [address] Creatinine [Mass/Vol] 0.87 mg/dL Normal 0.55-1.02 [facility] Comment on above: Result Comment: The validity of the calculated GFR GFRAA in patients over70 years has not been determined. Clinical correlation isessential. Performed By: #### L 500.2500 ####[facility] [address] [place], [address] ECRCL 99.71 ml/min Normal [facility] Comment on above: Performed By: #### L 500.2500 ####[facility] [address] [facility] [address] EST GFR - AA 99 mL/min Normal >60 [facility] Comment on above: Result Comment: Afri can Nauruan GFR Calc Performed By: #### L 500.2500 ####[facility] [address] [facility] [address] GAP 10 Normal 5-15 [facility] Comment on above: Performed By: #### L 500.2500 ####[facility] [address] [facility] [address] GFR/1.73 sq M.predicted among non-blacks MDRD (S/P/Bld) [Vol rate/Area] 82 mL/min/{1.73_m2} Normal >60 [facility] Comment on above: Result Comment: Non- GFR Calc Performed By: #### L 500.2500 ####[facility] [address] [place] [address] Glucose [Mass/Vol] 189 mg/dL High 74-106 [facility] Comment on above: Result Comment: Fast ing Glucose result greater than or equal to 126 mg/dLsuggests DIABETES MELLITUS per A.D.A. criteria. Performed By: #### L 500.2500 ####[facility] [address] [place], [address] Potassium [Moles/Vol] 3.8 mmol/L Normal 3.5-5.1 [facility] Comment on above: Performed By: #### L 500.2500 ####[facility] [address] [place], [address] Sodium [Moles/Vol] 140 mmol/L Normal 136-145 [facility] Comment on above: Performed By: #### L 500.2500 ####[facility] [address] [place], [address] Urea nitrogen [Mass/Vol] 17 mg/dL Normal 7-18 [facility] Comment on above: Performed By: #### L 500.2500 ####[facility] [address] [place], [address] BUN Normal 7-18 [facility] Comment on above: Order Comment: Call MD with results STAT Result Comment: NOT COLLECTED. Performed By: #### L 500.2500 ####[facility] [address] [place], [address] BUN/CRE Normal 10-20 [facility] Comment on above: Order Comment: Call MD with results STAT Result Comment: NOT COLLECTED. Performed By: #### L 500.2500 ####[facility] [address] [place], [address] CA,Total Normal 8.5-10.1 [facility] Comment on above: Order Comment: Call MD with results STAT Result Comment: NOT COLLECTED. Performed By: #### L 500.2500 ####[facility] [address] [place], [address] CL Normal 98-107 [facility] Comment on above: Order Comment: Call MD with results STAT Result Comment: NOT COLLECTED. Performed By: #### L 500.2500 ####[facility] [address] [place], [address] CO2 Normal 21.0-32.0 [facility] Comment on above: Order Comment: Call MD with results STAT Result Comment: NOT COLLECTED. Performed By: #### L 500.2500 ####[facility] [address] [place], [address] CREAT,SERUM Normal 0.55-1.02 [facility] Comment on above: Order Comment: Call MD with results STAT Result Comment: NOT COLLECTED. Performed By: #### L 500.2500 ####[facility] [address] [place], [address] EST GFR Normal >60 [facility] Comment on above: Order Comment: Call MD with results STAT Result Comment: NOT COLLECTED. Performed By: #### L 500.2500 ####[facility] [address] [place], [address] EST GFR - AA Normal >60 [facility] Comment on above: Order Comment: Call MD with results STAT Result Comment: NOT COLLECTED. Performed By: #### L 500.2500 ####[facility] [address] [place], [address] GAP Normal 5-15 [facility] Comment on above: Order Comment: Call MD with results STAT Result Comment: NOT COLLECTED. Performed By: #### L 500.2500 ####[facility] [address] [place], [address] GLU Normal 74-106 [facility] Comment on above: Order Comment: Call MD with results STAT Result Comment: NOT COLLECTED. Performed By: #### L 500.2500 ####[facility] [address] [place], [address] Potassium Normal 3.5-5.1 [facility] Comment on above: Order Comment: Call MD with results STAT Result Comment: NOT COLLECTED. Performed By: #### L 500.2500 ####[facility] [address] [place], [address] Basic Metabolic Profile (BMP) Normal 136-145 [facility] Comment on above: Order Comment: Call MD with results STAT Result Comment: NOT COLLECTED. Performed By: #### L 500.2500 ####[facility] [address] [place], [address] BUN/CRE 19.6 RATIO Normal 10-20 [facility] Comment on above: Order Comment: Call MD with results STAT Performed By: #### L 500.2500 ####[facility] [address] [place], [address] CA,Total 7.9 mg/dL Low 8.5-10.1 [facility] Comment on above: Order Comment: Call MD with results STAT Performed By: #### L 500.2500 ####[facility] [address] [place], [address] Chloride [Moles/Vol] 112 mmol/L High 98-107 [facility] Comment on above: Order Comment: Call MD with results STAT Performed By: #### L 500.2500 ####[facility] [address] [place], [address] CO2 [Moles/Vol] 17.0 mmol/L Low 21.0-32.0 [facility] Comment on above: Order Comment: Call MD with results STAT Performed By: #### L 500.2500 ####[facility] [address] [place], [address] Creatinine [Mass/Vol] 1.02 mg/dL Normal 0.55-1.02 [facility] Comment on above: Order Comment: Call MD with results STAT Result Comment: The validity of the calculated GFR GFRAA in patients over70 years has not been determined. Clinical correlation isessential. Performed By: #### L 500.2500 ####[facility] [address] [place], [address] ECRCL 82.09 ml/min Normal [facility] Comment on above: Order Comment: Call MD with results STAT Performed By: #### L 500.2500 ####[facility] [address] [place], [address] EST GFR - AA 82 mL/min Normal >60 [facility] Comment on above: Order Comment: Call MD with results STAT Result Comment: Afri can Nauruan GFR Calc Performed By: #### L 500.2500 ####[facility] [address], [address] GAP 10 Normal 5-15 [facility] Comment on above: Order Comment: Call MD with results STAT Performed By: #### L 500.2500 ####[facility] [address] [place], [address] GFR/1.73 sq M.predicted among non-blacks MDRD (S/P/Bld) [Vol rate/Area] 68 mL/min/{1.73_m2} Normal >60 [facility] Comment on above: Order Comment: Call MD with results STAT Result Comment: Non- GFR Calc Performed By: #### L 500.2500 ####[facility] [address] [place], [address] Glucose [Mass/Vol] 168 mg/dL High 74-106 [facility] Comment on above: Order Comment: Call MD with results STAT Result Comment: Fast ing Glucose result greater than or equal to 126 mg/dLsuggests DIABETES MELLITUS per A.D.A. criteria. Performed By: #### L 500.2500 ####[facility] [address] [place], [address] Potassium [Moles/Vol] 3.7 mmol/L Normal 3.5-5.1 [facility] Comment on above: Order Comment: Call MD with results STAT Performed By: #### L 500.2500 ####[facility] [address] [place], [address] Sodium [Moles/Vol] 139 mmol/L Normal 136-145 [facility] Comment on above: Order Comment: Call MD with results STAT Performed By: #### L 500.2500 ####[facility] [address] [place], [address] Urea nitrogen [Mass/Vol] 20 mg/dL High 7-18 [facility] Comment on above: Order Comment: Call MD with results STAT Performed By: #### L 500.2500 ####[facility] [address] [place], [address] Bedside Glucoseon 06-08-2024 [place] GLU 191 mg/dL High 74-106 [facility] Comment on above: Result Comment: EDGAR GEMENT OF PATIENT CARE PER NURSING PROTOCOL Performed By: #### L 501.080 ####[facility] [address] [facility] [address] FINGERSTICK GLU 198 mg/dL High 74-106 [facility] Comment on above: Result Comment: EDGAR GEMENT OF PATIENT CARE PER NURSING PROTOCOL Performed By: #### L 501.080 ####[facility] [address] [facility] [address] FINGERSTICK GLU 247 mg/dL High 74-106 [facility] Comment on above: Result Comment: EDGAR GEMENT OF PATIENT CARE PER NURSING PROTOCOL Performed By: #### L 501.080 ####[facility] [address] [place], [address] FINGERSTICK GLU 252 mg/dL High 74-106 [facility] Comment on above: Result Comment: EDGAR GEMENT OF PATIENT CARE PER NURSING PROTOCOL Performed By: #### L 501.080 ####[facility] [address] [place], [address] FINGERSTICK GLU 205 mg/dL High 74-106 [facility] Comment on above: Result Comment: EDGAR GEMENT OF PATIENT CARE PER NURSING PROTOCOL Performed By: #### L 501.080 ####[facility] [address] [facility] [address] FINGERSTICK GLU 151 mg/dL High 74-106 [facility] Comment on above: Result Comment: EDGAR GEMENT OF PATIENT CARE PER NURSING PROTOCOL Performed By: #### L 501.080 ####[facility] [address] [place], [address] FINGERSTICK GLU 176 mg/dL High 74-106 [facility] Comment on above: Result Comment: EDGAR GEMENT OF PATIENT CARE PER NURSING PROTOCOL Performed By: #### L 501.080 ####[facility] [address] [place], [address] FINGERSTICK GLU 121 mg/dL High 74-106 [facility] Comment on above: Result Comment: EDGAR GEMENT OF PATIENT CARE PER NURSING PROTOCOL Performed By: #### L 501.080 ####[facility] [address] [place], [address] FINGERSTICK GLU 108 mg/dL High 74-106 [facility] Comment on above: Result Comment: EDGAR GEMENT OF PATIENT CARE PER NURSING PROTOCOL Performed By: #### L 501.080 ####[facility] [address] [place], [address] FINGERSTICK GLU 114 mg/dL High 74-106 [facility] Comment on above: Result Comment: EDGAR GEMENT OF PATIENT CARE PER NURSING PROTOCOL Performed By: #### L 501.080 ####[facility] [address] [place], [address] FINGERSTICK GLU 236 mg/dL High 74-106 [facility] Comment on above: Result Comment: EDGAR GEMENT OF PATIENT CARE PER NURSING PROTOCOL Performed By: #### L 501.080 ####[facility] [address] [place], [address] FINGERSTICK GLU 251 mg/dL High 74-106 [facility] Comment on above: Result Comment: EDGAR GEMENT OF PATIENT CARE PER NURSING PROTOCOL Performed By: #### L 501.080 ####[facility] [address] [place], [address] FINGERSTICK GLU 261 mg/dL High 74-106 [facility] Comment on above: Result Comment: EDGAR GEMENT OF PATIENT CARE PER NURSING PROTOCOL Performed By: #### L 501.080 ####[facility] [address] [place], [address] FINGERSTICK GLU 402 mg/dL High 74-106 [facility] Comment on above: Result Comment: EDGAR GEMENT OF PATIENT CARE PER NURSING PROTOCOL Performed By: #### L 501.080 ####[facility] [address] [place], [address] FINGERSTICK GLU 324 mg/dL High 74-106 [facility] Comment on above: Result Comment: EDGAR GEMENT OF PATIENT CARE PER NURSING PROTOCOL Performed By: #### L 501.080 ####[facility] [address] [place], [address] Blood Gases by [facility] 024 GEM TEST Positive Normal [facility] Comment on above: Performed By: #### L 9000.0800 ####[facility] [address] [place], [address] Base excess Calc (Bld) [Moles/Vol] -14 mmol/L Low -2 to +2 [facility] Comment on above: Performed By: #### L 9000.0800 ####[facility] [address] [place], [address] Blood Gas Type ART Normal [facility] Comment on above: Performed By: #### L 9000.0800 ####[facility] [address] [place], [address] CO2 [Moles/Vol] 11 mmol/L Normal [facility] Comment on above: Performed By: #### L 9000.0800 ####[facility] [address] [place], [address] FI02 21.0 Normal [facility] Comment on above: Performed By: #### L 9000.0800 ####[facility] [address] [place], [address] HCO3 (Bld) [Moles/Vol] 10.7 mmol/L Low 22-26 [facility] Comment on above: Performed By: #### L 9000.0800 ####[facility] [address] [place], [address] Mode Not entered [facility] Comment on above: Performed By: #### L 9000.0800 ####[facility] [address] [place], [address] O2 Delivery Dev Room Air [facility] Comment on above: Performed By: #### L 9000.0800 ####[facility] [address] [place], [address] pCO2 17.9 mmHg Invalid Interpretation Code 35-45 [facility] Comment on above: Performed By: #### L 9000.0800 ####[facility] [address] [place], [address] pH (Bld) 7.39 [pH] Normal 7.35-7.45 [facility] Comment on above: Performed By: #### L 9000.0800 ####[facility] [address] [place], [address] PO2 114 mmHG High 75-100 [facility] Comment on above: Performed By: #### L 9000.0800 ####[facility] [address] [place], [address] Read Back By Yes [facility] Comment on above: Performed By: #### L 9000.0800 ####[facility] [address] [place], [address] Results To denia [facility] Comment on above: Performed By: #### L 0.0800 ####[facility] [address] [place], [address] SITE L Radial Normal [facility] Comment on above: Performed By: #### L 0.0800 ####[facility] [address] [place], [address] SO2 99 Normal 95-99 [facility] Comment on above: Performed By: #### L 8999.0800 ####[facility] [address] [place], [address] Time Given 09:45:00 Normal [facility] Comment on above: Performed By: #### L 0.0800 ####[facility] [address] [place], [address] CBC W/Diff, Automatedon 10-1 Absolute Lymph 0.71 X10 3/uL Low 0.83-4.51 [facility] Comment on above: Performed By: #### L 501.5200, L100.0100, L500.4050 ####[facility] [address] [place], [address] Absolute Neut 19.8 X10 3/uL High 2.0-7.7 [facility] Comment on above: Performed By: #### L 501.5200, L100.0100, L500.4050 ####[facility] [address] [place], [address] Basophils/100 WBC (Bld) 0.1 % Normal 0-1 [facility] Comment on above: Performed By: #### L 501.5200, L100.0100, L500.4050 ####[facility] [address] [place], [address] Eosinophils/100 WBC (Bld) 0.0 % Normal 0-5 [facility] Comment on above: Performed By: #### L 501.5200, L100.0100, L500.4050 ####[facility] [address] [place], [address] Erythrocyte distribution width (RBC) [Ratio] 12.9 % Normal 11.6-14.6 [facility] Comment on above: Performed By: #### L 501.5200, L100.0100, L500.4050 ####[facility] [address] [place], [address] Hematocrit (Bld) [Volume fraction] 41.0 % Normal 37-47 [facility] Comment on above: Performed By: #### L 501.5200, L100.0100, L500.4050 ####[facility] [address] [place], [address] Hemoglobin (Bld) [Mass/Vol] 13.2 g/dL Normal 12.0-15.0 [facility] Comment on above: Performed By: #### L 501.5200, L100.0100, L500.4050 ####[facility] [address] [place], [address] IG% 0.900 Normal 0.0-0.9 [facility] Comment on above: Result Comment: IG% - Immature Granulocytes (promyelocytes, myelocytes andmetamyelocytes) > 1% indicates that a LEFT SHIFT is Present. Performed By: #### L 501.5200, L100.0100, L500.4050 ####[facility] [address] [place], [address] Lymphocytes/100 WBC (Bld) 3.3 % Low 19-41 [facility] Comment on above: Performed By: #### L 501.5200, L100.0100, L500.4050 ####[facility] [address] [place], [address] MCH (RBC) [Entitic mass] 29.7 pg Normal 27.0-32.0 [facility] Comment on above: Performed By: #### L 501.5200, L100.0100, L500.4050 ####[facility] [address] [place], [address] MCHC (RBC) [Mass/Vol] 32.2 g/dL Normal 32-36 [facility] Comment on above: Performed By: #### L 501.5200, L100.0100, L500.4050 ####[facility] [address] [place], [address] MCV (RBC) [Entitic vol] 92.1 fL Normal 81-99 [facility] Comment on above: Performed By: #### L 501.5200, L100.0100, L500.4050 ####[facility] [address] [place], [address] Monocytes/100 WBC (Bld) 4.9 % Normal 0-10 [facility] Comment on above: Performed By: #### L 501.5200, L100.0100, L500.4050 ####[facility] [address] [place], [address] Neutrophils/100 WBC (Bld) 90.8 % High 47-70 [facility] Comment on above: Performed By: #### L 501.5200, L100.0100, L500.4050 ####[facility] [address] [place], [address] Nucleated RBC (Bld) [#/Vol] 0 10*3/uL Normal 0-5 [facility] Comment on above: Performed By: #### L 501.5200, L100.0100, L500.4050 ####[facility] [address] [place], [address] Platelet mean volume (Bld) [Entitic vol] 13.6 fL High 6.2-12.0 [facility] Comment on above: Performed By: #### L 501.5200, L100.0100, L500.4050 ####[facility] [address] [place], [address] Platelets (Bld) [#/Vol] 171 10*3/uL Normal 150-450 [facility] Comment on above: Performed By: #### L 501.5200, L100.0100, L500.4050 ####[facility] [address] [place], [address] RBC (Bld) [#/Vol] 4.45 10*6/uL Normal 4.2-5.4 [facility] Comment on above: Performed By: #### L 501.5200, L100.0100, L500.4050 ####[facility] [address] [place], [address] RDW SD 43.6 fl Normal 35.1-43.9 [facility] Comment on above: Performed By: #### L 501.5200, L100.0100, L500.4050 ####[facility] [address] [place], [address] WBC (Bld) [#/Vol] 21.8 10*3/uL High 4.4-11.0 [facility] Comment on above: Performed By: #### L 501.5200, L100.0100, L500.4050 ####[facility] [address] [place], [address] Comprehensive Metabolic Prof ilon 06-08-2024 Albumin [Mass/Vol] 3.9 g/dL Normal 3.2-5.0 [facility] Comment on above: Performed By: #### L 501.5200, L100.0100, L500.4050 ####[facility] [address] [place], [address] Albumin/Globulin [Mass ratio] 1.2 {ratio} Normal 0.9-2.4 [facility] Comment on above: Performed By: #### L 501.5200, L100.0100, L500.4050 ####[facility] [address] [place], [address] ALK P 90 U/L Normal 45-117 [facility] Comment on above: Performed By: #### L 501.5200, L100.0100, L500.4050 ####[facility] [address] [place], [address] ALT [Catalytic activity/Vol] 21 U/L Normal 13-56 [facility] Comment on above: Performed By: #### L 501.5200, L100.0100, L500.4050 ####[facility] [address] [place], [address] AST [Catalytic activity/Vol] 15 U/L Normal 15-37 [facility] Comment on above: Performed By: #### L 501.5200, L100.0100, L500.4050 ####[facility] [address] [place], [address] Bilirubin [Mass/Vol] 1.30 mg/dL High 0.20-1.00 [facility] Comment on above: Result Comment: For patients on eltrombopag therapy, use of Dimension Ivor TBIL is not recommended. Performed By: #### L 501.5200, L100.0100, L500.4050 ####[facility] [address] [place], [address] BUN/CRE 22.0 RATIO High 10-20 [facility] Comment on above: Performed By: #### L 501.5200, L100.0100, L500.4050 ####[facility] [address] [place], [address] CA,Total 8.9 mg/dL Normal 8.5-10.1 [facility] Comment on above: Performed By: #### L 501.5200, L100.0100, L500.4050 ####[facility] [address] [place], [address] Chloride [Moles/Vol] 100 mmol/L Normal 98-107 [facility] Comment on above: Performed By: #### L 501.5200, L100.0100, L500.4050 ####[facility] [address] [place], [address] CO2 [Moles/Vol] 12.0 mmol/L Low 21.0-32.0 [facility] Comment on above: Performed By: #### L 501.5200, L100.0100, L500.4050 ####[facility] [address] [place], [address] Creatinine [Mass/Vol] 1.00 mg/dL Normal 0.55-1.02 [facility] Comment on above: Result Comment: The validity of the calculated GFR GFRAA in patients over70 years has not been determined. Clinical correlation isessential. Performed By: #### L 501.5200, L100.0100, L500.4050 ####[facility] [address] [place], [address] ECRCL 83.74 ml/min Normal [facility] Comment on above: Performed By: #### L 501.5200, L100.0100, L500.4050 ####[facility] [address] [place], [address] EST GFR - AA 84 mL/min Normal >60 [facility] Comment on above: Result Comment: Afri can Nauruan GFR Calc Performed By: #### L 501.5200, L100.0100, L500.4050 ####[facility] [address] [place], [address] GAP 18 High 5-15 [facility] Comment on above: Performed By: #### L 501.5200, L100.0100, L500.4050 ####[facility] [address] [place], [address] GFR/1.73 sq M.predicted among non-blacks MDRD (S/P/Bld) [Vol rate/Area] 69 mL/min/{1.73_m2} Normal >60 [facility] Comment on above: Result Comment: Non- GFR Calc Performed By: #### L 501.5200, L100.0100, L500.4050 ####[facility] [address] [place], [address] Globulin (S) [Mass/Vol] 3.2 g/dL Normal 2.2-4.2 [facility] Comment on above: Performed By: #### L 501.5200, L100.0100, L500.4050 ####[facility] [address] [place], [address] Glucose [Mass/Vol] 398 mg/dL High 74-106 [facility] Comment on above: Result Comment: Gluc ose result greater than or equal to 200 mg/dLsuggests DIABETES MELLITUS per A.D.A. criteria. Performed By: #### L 501.5200, L100.0100, L500.4050 ####[facility] [address] [place], [address] Potassium [Moles/Vol] 4.2 mmol/L Normal 3.5-5.1 [facility] Comment on above: Performed By: #### L 501.5200, L100.0100, L500.4050 ####[facility] [address] [place], [address] Sodium [Moles/Vol] 131 mmol/L Low 136-145 [facility] Comment on above: Performed By: #### L 501.5200, L100.0100, L500.4050 ####[facility] [address] [place], [address] T PROT 7.1 g/dL Normal 6.4-8.2 [facility] Comment on above: Performed By: #### L 501.5200, L100.0100, L500.4050 ####[facility] [address] [place], [address] Urea nitrogen [Mass/Vol] 22 mg/dL High 7-18 [facility] Comment on above: Performed By: #### L 501.5200, L100.0100, L500.4050 ####[facility] [address] [place], [address] Hemoglobin A1con 06-08-2024 HbA1c (Bld) [Mass fraction] 8.6 % High 3.8-5.6 [facility] Comment on above: Result Comment: Norm al < 5.7 % Prediabetic 5.7 - 6.4 % Diabetic >or= 6.5 % Please note range changes. Performed By: #### L 501.9992 ####[facility] [address] [place], [address] Magnesiumon 06-08-2024 Magnesium [Mass/Vol] 1.8 mg/dL Normal 1.6-2.6 [facility] Comment on above: Performed By: #### L 501.5200, L100.0100, L500.4050 ####[facility] [address] [place], [address] Abdomen/Pelvis W IV Cont ONL Yon 06-07-2024 Abdomen/Pelvis W IV Cont ONLY Normal [facility] Bedside Glucoseon 06-07-2024 FINGERSTICK GLU 422 mg/dL High 74-106 [facility] Comment on above: Result Comment: EDGAR GEMENT OF PATIENT CARE PER NURSING PROTOCOL Performed By: #### L 501.080 ####[facility] [address] [place], [address] FINGERSTICK GLU 331 mg/dL High 74-106 [facility] Comment on above: Result Comment: EDGAR HUNG OF PATIENT CARE PER NURSING PROTOCOL Performed By: #### L 501.080 ####[facility] [address] [place], [address] CBC W/Diff, Automatedon 10- Absolute Lymph 0.76 X10 3/uL Low 0.83-4.51 [facility] Comment on above: Performed By: #### L 500.4050, L501.4020, L100.0100, L501.2450 ####[facility] [address] [place], [address] Absolute Neut 14.6 X10 3/uL High 2.0-7.7 [facility] Comment on above: Performed By: #### L 500.4050, L501.4020, L100.0100, L501.2450 ####[facility] [address] [place], [address] Basophils/100 WBC (Bld) 0.3 % Normal 0-1 [facility] Comment on above: Performed By: #### L 500.4050, L501.4020, L100.0100, L501.2450 ####[facility] [address] [place], [address] Eosinophils/100 WBC (Bld) 0.0 % Normal 0-5 [facility] Comment on above: Performed By: #### L 500.4050, L501.4020, L100.0100, L501.2450 ####[facility] [address] [place], [address] Erythrocyte distribution width (RBC) [Ratio] 12.3 % Normal 11.6-14.6 [facility] Comment on above: Performed By: #### L 500.4050, L501.4020, L100.0100, L501.2450 ####[facility] [address] [place], [address] Hematocrit (Bld) [Volume fraction] 39.5 % Normal 37-47 [facility] Comment on above: Performed By: #### L 500.4050, L501.4020, L100.0100, L501.2450 ####[facility] [address] [place], [address] Hemoglobin (Bld) [Mass/Vol] 13.4 g/dL Normal 12.0-15.0 [facility] Comment on above: Performed By: #### L 500.4050, L501.4020, L100.0100, L501.2450 ####[facility] [address] [place], [address] IG% 0.900 Normal 0.0-0.9 [facility] Comment on above: Result Comment: IG% - Immature Granulocytes (promyelocytes, myelocytes andmetamyelocytes) > 1% indicates that a LEFT SHIFT is Present. Performed By: #### L 500.4050, L501.4020, L100.0100, L501.2450 ####[facility] [address] [place], [address] Lymphocytes/100 WBC (Bld) 4.8 % Low 19-41 [facility] Comment on above: Performed By: #### L 500.4050, L501.4020, L100.0100, L501.2450 ####[facility] [address] [place], [address] MCH (RBC) [Entitic mass] 29.2 pg Normal 27.0-32.0 [facility] Comment on above: Performed By: #### L 500.4050, L501.4020, L100.0100, L501.2450 ####[facility] [address] [place], [address] MCHC (RBC) [Mass/Vol] 33.9 g/dL Normal 32-36 [facility] Comment on above: Performed By: #### L 500.4050, L501.4020, L100.0100, L501.2450 ####[facility] [address] [place], [address] MCV (RBC) [Entitic vol] 86.1 fL Normal 81-99 [facility] Comment on above: Performed By: #### L 500.4050, L501.4020, L100.0100, L501.2450 ####[facility] [address] [place], [address] Monocytes/100 WBC (Bld) 2.6 % Normal 0-10 [facility] Comment on above: Performed By: #### L 500.4050, L501.4020, L100.0100, L501.2450 ####[facility] [address] [place], [address] Neutrophils/100 WBC (Bld) 91.4 % High 47-70 [facility] Comment on above: Performed By: #### L 500.4050, L501.4020, L100.0100, L501.2450 ####[facility] [address] [place], [address] Nucleated RBC (Bld) [#/Vol] 0 10*3/uL Normal 0-5 [facility] Comment on above: Performed By: #### L 500.4050, L501.4020, L100.0100, L501.2450 ####[facility] [address] [place], [address] Platelet mean volume (Bld) [Entitic vol] 13.6 fL High 6.2-12.0 [facility] Comment on above: Performed By: #### L 500.4050, L501.4020, L100.0100, L501.2450 ####[facility] [address] [place], [address] Platelets (Bld) [#/Vol] 167 10*3/uL Normal 150-450 [facility] Comment on above: Performed By: #### L 500.4050, L501.4020, L100.0100, L501.2450 ####[facility] [address] [place], [address] RBC (Bld) [#/Vol] 4.59 10*6/uL Normal 4.2-5.4 [facility] Comment on above: Performed By: #### L 500.4050, L501.4020, L100.0100, L501.2450 ####[facility] [address] [place], [address] RDW SD 38.5 fl Normal 35.1-43.9 [facility] Comment on above: Performed By: #### L 500.4050, L501.4020, L100.0100, L501.2450 ####[facility] [address] [place], [address] WBC (Bld) [#/Vol] 16.0 10*3/uL High 4.4-11.0 [facility] Comment on above: Performed By: #### L 500.4050, L501.4020, L100.0100, L501.2450 ####[facility] [address] [place], [address] Comprehensive Metabolic Prof ilon 06-07-2024 Albumin [Mass/Vol] 4.1 g/dL Normal 3.2-5.0 [facility] Comment on above: Order Comment: 'TROP ' Serial specimen #1, #2 or #3: 1 Performed By: #### L 500.4050, L501.4020, L100.0100, L501.2450 ####[facility] [address] [place], [address] Albumin/Globulin [Mass ratio] 1.2 {ratio} Normal 0.9-2.4 [facility] Comment on above: Order Comment: 'TROP ' Serial specimen #1, #2 or #3: 1 Performed By: #### L 500.4050, L501.4020, L100.0100, L501.2450 ####[facility] [address] [place], [address] ALK P 87 U/L Normal 45-117 [facility] Comment on above: Order Comment: 'TROP ' Serial specimen #1, #2 or #3: 1 Performed By: #### L 500.4050, L501.4020, L100.0100, L501.2450 ####[facility] [address] [place], [address] ALT [Catalytic activity/Vol] 25 U/L Normal 13-56 [facility] Comment on above: Order Comment: 'TROP ' Serial specimen #1, #2 or #3: 1 Performed By: #### L 500.4050, L501.4020, L100.0100, L501.2450 ####[facility] [address] [place], [address] AST [Catalytic activity/Vol] 15 U/L Normal 15-37 [facility] Comment on above: Order Comment: 'TROP ' Serial specimen #1, #2 or #3: 1 Performed By: #### L 500.4050, L501.4020, L100.0100, L501.2450 ####[facility] [address] [place], [address] Bilirubin [Mass/Vol] 1.30 mg/dL High 0.20-1.00 [facility] Comment on above: Order Comment: 'TROP ' Serial specimen #1, #2 or #3: 1 Result Comment: For patients on eltrombopag therapy, use of Dimension Ivor TBIL is not recommended. Performed By: #### L 500.4050, L501.4020, L100.0100, L501.2450 ####[facility] [address] [place], [address] BUN/CRE 19.1 RATIO Normal 10-20 [facility] Comment on above: Order Comment: 'TROP ' Serial specimen #1, #2 or #3: 1 Performed By: #### L 500.4050, L501.4020, L100.0100, L501.2450 ####[facility] [address] [place], [address] CA,Total 9.5 mg/dL Normal 8.5-10.1 [facility] Comment on above: Order Comment: 'TROP ' Serial specimen #1, #2 or #3: 1 Performed By: #### L 500.4050, L501.4020, L100.0100, L501.2450 ####[facility] [address] [place], [address] Chloride [Moles/Vol] 105 mmol/L Normal 98-107 [facility] Comment on above: Order Comment: 'TROP ' Serial specimen #1, #2 or #3: 1 Performed By: #### L 500.4050, L501.4020, L100.0100, L501.2450 ####[facility] [address] [place], [address] CO2 [Moles/Vol] 17.0 mmol/L Low 21.0-32.0 [facility] Comment on above: Order Comment: 'TROP ' Serial specimen #1, #2 or #3: 1 Performed By: #### L 500.4050, L501.4020, L100.0100, L501.2450 ####[facility] [address] [place], [address] Creatinine [Mass/Vol] 0.94 mg/dL Normal 0.55-1.02 [facility] Comment on above: Order Comment: 'TROP ' Serial specimen #1, #2 or #3: 1 Result Comment: The validity of the calculated GFR GFRAA in patients over70 years has not been determined. Clinical correlation isessential. Performed By: #### L 500.4050, L501.4020, L100.0100, L501.2450 ####[facility] [address] [place], [address] ECRCL 92.29 ml/min Normal [facility] Comment on above: Order Comment: 'TROP ' Serial specimen #1, #2 or #3: 1 Performed By: #### L 500.4050, L501.4020, L100.0100, L501.2450 ####[facility] [address] [place], [address] EST GFR - AA 90 mL/min Normal >60 [facility] Comment on above: Order Comment: 'TROP ' Serial specimen #1, #2 or #3: 1 Result Comment: Afri can Nauruan GFR Calc Performed By: #### L 500.4050, L501.4020, L100.0100, L501.2450 ####[facility] [address] [place], [address] GAP 14 Normal 5-15 [facility] Comment on above: Order Comment: 'TROP ' Serial specimen #1, #2 or #3: 1 Performed By: #### L 500.4050, L501.4020, L100.0100, L501.2450 ####[facility] [address] [place], [address] GFR/1.73 sq M.predicted among non-blacks MDRD (S/P/Bld) [Vol rate/Area] 74 mL/min/{1.73_m2} Normal >60 [facility] Comment on above: Order Comment: 'TROP ' Serial specimen #1, #2 or #3: 1 Result Comment: Non- GFR Calc Performed By: #### L 500.4050, L501.4020, L100.0100, L501.2450 ####[facility] [address] [place], [address] Globulin (S) [Mass/Vol] 3.5 g/dL Normal 2.2-4.2 [facility] Comment on above: Order Comment: 'TROP ' Serial specimen #1, #2 or #3: 1 Performed By: #### L 500.4050, L501.4020, L100.0100, L501.2450 ####[facility] [address] [place], [address] Glucose [Mass/Vol] 355 mg/dL High 74-106 [facility] Comment on above: Order Comment: 'TROP ' Serial specimen #1, #2 or #3: 1 Result Comment: Gluc ose result greater than or equal to 200 mg/dLsuggests DIABETES MELLITUS per A.D.A. criteria. Performed By: #### L 500.4050, L501.4020, L100.0100, L501.2450 ####[facility] [address] [place], [address] Potassium [Moles/Vol] 3.4 mmol/L Low 3.5-5.1 [facility] Comment on above: Order Comment: 'TROP ' Serial specimen #1, #2 or #3: 1 Performed By: #### L 500.4050, L501.4020, L100.0100, L501.2450 ####[facility] [address] [place], [address] Sodium [Moles/Vol] 136 mmol/L Normal 136-145 [facility] Comment on above: Order Comment: 'TROP ' Serial specimen #1, #2 or #3: 1 Performed By: #### L 500.4050, L501.4020, L100.0100, L501.2450 ####[facility] [address] [place], [address] T PROT 7.6 g/dL Normal 6.4-8.2 [facility] Comment on above: Order Comment: 'TROP ' Serial specimen #1, #2 or #3: 1 Performed By: #### L 500.4050, L501.4020, L100.0100, L501.2450 ####[facility] [address] [place], [address] Urea nitrogen [Mass/Vol] 18 mg/dL Normal 7-18 [facility] Comment on above: Order Comment: 'TROP ' Serial specimen #1, #2 or #3: 1 Performed By: #### L 500.4050, L501.4020, L100.0100, L501.2450 ####[facility] [address] [place], [address] Emergency Department Summary on 06-07-2024 Emergency Department Summary Normal [facility] H AND P Exam - Hospitaliston 06-07-2024 H&P Exam - Hospitalist Normal [facility] L501.4020on 06-07-2024 TROPONIN-I HS 4 pg/mL Normal 3.0-54.0 [facility] Comment on above: Order Comment: 'TROP ' Serial specimen #1, #2 or #3: 1 Result Comment: Plea se Note: New Test Units and Gender Specific Reference Ranges. For more information see Policy Stat Procedure Ivor High Sensitivity Troponin (TNIH) and attachments. Performed By: #### L 500.4050, L501.4020, L100.0100, L501.2450 ####[facility] [address] [place], [address] Lipaseon 06-07-2024 Lipase [Catalytic activity/Vol] 10 U/L Low 13-75 [facility] Comment on above: Order Comment: 'TROP ' Serial specimen #1, #2 or #3: 1 Result Comment: Plea se note:LIPASE revised reference range effective 22.New Lipase methodology. Expected to produce lower valuesthan the previous assay method.NEW Reference Range: 13 - 75 U/L Performed By: #### L 500.4050, L501.4020, L100.0100, L501.2450 ####[facility] [address] [place], [address] ,Urineon 06-07-2024 Beta HCG ( test) Ql (U) Negative Normal [facility] Comment on above: Order Comment: CLEAN CATCH Result Comment: Very dilute urine specimens, as indicated by a low specificgravity, may not contain telemarketing representative levels of hCG.If is still suspected, a first morning urinespecimen should be collected 48 hours later and tested. Performed By: #### L 400.7600, L400.0001 ####[facility] [address] [place], [address] Urinalysis, Completeon 06-07 BACTERIA 0 SEEN Normal None Seen [facility] Comment on above: Order Comment: CLEAN CATCH Performed By: #### L 400.7600, L400.0001 ####[facility] [address] [place], [address] EPI,SQUAMOUS 0 SEEN Normal 5-10 [facility] Comment on above: Order Comment: CLEAN CATCH Performed By: #### L 400.7600, L400.0001 ####[facility] [address] [place], [address] Mucus Ql (Urine sed) 0 SEEN Normal [facility] Comment on above: Order Comment: CLEAN CATCH Performed By: #### L 400.7600, L400.0001 ####[facility] [address] [place], [address] RBC 0 SEEN Normal 0-5 [facility] Comment on above: Order Comment: CLEAN CATCH Performed By: #### L 400.7600, L400.0001 ####[facility] [address] [place], [address] WBC 0 SEEN Normal 0-5 [facility] Comment on above: Order Comment: CLEAN CATCH Performed By: #### L 400.7600, L400.0001 ####[facility] [address] 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 Re Gonzalez, STIVEN 05/17/2024 10:09 AM Signed JOSE 03/12/24 Joshua CAMPA 05/28/24 Josue Pt uses [facility] for supplies Has had loaner pump x3 months through [employer] and now has to return it or pay $3000 out of pocket. Advised pt she has to call [facility] and have them send us an [...] updated if any issues. Jessica Guerrero APRN.CNP [facility] Pss, Zelda Q 05/24/2024 1:01 PM Signed [...] not received any new order forms from [facility] or apprupt. Advised pt to reach out. 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 Normal [facility] 36on 05-06-2024 36 Medication: Skyrizi 150mg/ml Dosing Schedule: 150mg every 12 weeks Prior Authorization: Submitted date: 05.06.2024 [place] reference #: [id number] Approval dates: 05.06.2024-08.27.2024 Caitie Light [facility] [phone] Normal [facility] 12 Lead EKGon 04-21-2024 12 Lead EKG Normal [facility] Acetone Serumon 04-21-2024 ACETONE SERUM Negative Normal NEG [facility] Comment on above: Performed By: #### L 501.6900, L500.2500 ####[facility] [address] [place], [address] Basic Metabolic Profile (BMP )on 04-21-2024 BUN/CRE 20.4 RATIO High 10-20 [facility] Comment on above: Performed By: #### L 501.6900, L500.2500 ####[facility] [address] [place], [address] CA,Total 7.3 mg/dL Low 8.5-10.1 [facility] Comment on above: Performed By: #### L 501.6900, L500.2500 ####[facility] [address] [place], [address] Chloride [Moles/Vol] 113 mmol/L High 98-107 [facility] Comment on above: Performed By: #### L 501.6900, L500.2500 ####[facility] [address] [place], [address] CO2 [Moles/Vol] 23.0 mmol/L Normal 21.0-32.0 [facility] Comment on above: Performed By: #### L 501.6900, L500.2500 ####[facility] [address] [place], [address] Creatinine [Mass/Vol] 0.68 mg/dL Normal 0.55-1.02 [facility] Comment on above: Result Comment: The validity of the calculated GFR GFRAA in patients over70 years has not been determined. Clinical correlation isessential. Performed By: #### L 501.6900, L500.2500 ####[facility] [address] [place], [address] ECRCL 127.57 ml/min Normal [facility] Comment on above: Performed By: #### L 501.6900, L500.2500 ####[facility] [address] [place], [address] EST GFR - AA 130 mL/min Normal >60 [facility] Comment on above: Result Comment: Afri can Nauruan GFR Calc Performed By: #### L 501.6900, L500.2500 ####[facility] [address] [place], [address] GAP 7 Normal 5-15 [facility] Comment on above: Performed By: #### L 501.6900, L500.2500 ####[facility] [address] [place], [address] GFR/1.73 sq M.predicted among non-blacks MDRD (S/P/Bld) [Vol rate/Area] 107 mL/min/{1.73_m2} Normal >60 [facility] Comment on above: Result Comment: Non- GFR Calc Performed By: #### L 501.6900, L500.2500 ####[facility] [address] [place], [address] Glucose [Mass/Vol] 173 mg/dL High 74-106 [facility] Comment on above: Result Comment: Fast ing Glucose result greater than or equal to 126 mg/dLsuggests DIABETES MELLITUS per A.D.A. criteria. Performed By: #### L 501.6900, L500.2500 ####[facility] [address] [place], [address] Potassium [Moles/Vol] 2.7 mmol/L Invalid Interpretation Code 3.5-5.1 [facility] Comment on above: Result Comment: Crit ical Result(s) Called at: 21:44:18 04/21/2024 by: DEX. Results read back by Faith Performed By: #### L 501.6900, L500.2500 ####[facility] [address] [place], [address] Sodium [Moles/Vol] 143 mmol/L Normal 136-145 [facility] Comment on above: Performed By: #### L 501.6900, L500.2500 ####[facility] [address] [place], [address] Urea nitrogen [Mass/Vol] 14 mg/dL Normal 7-18 [facility] Comment on above: Performed By: #### L 501.6900, L500.2500 ####[facility] [address] [place], [address] CBC W/Diff, Automatedon 03-29 Anisocytosis Ql (Bld) RARE Normal [facility] Comment on above: Performed By: #### L 100.0100 ####[facility] [address] [place], [address] PLT EST MOD DEC Normal ADEQ [facility] Comment on above: Performed By: #### L 100.0100 ####[facility] [address] [place], [address] RED CELL MORPH NORM C+C Normal NORM C C [facility] Comment on above: Performed By: #### L 100.0100 ####[facility] [address] [place], [address] Emergency Department Summary on 04-21-2024 Emergency Department Summary Normal [facility] Lipaseon 04-21-2024 Lipase [Catalytic activity/Vol] 14 U/L Normal 13-75 [facility] Comment on above: Result Comment: Sulma schmitz note:LIPASE revised reference range effective 22.New Lipase methodology. Expected to produce lower valuesthan the previous assay method.NEW Reference Range: 13 - 75 U/L Performed By: #### L 501.2450, L500.3400 ####[facility] [address] [place], [address] Liver Profileon 04-21-2024 Albumin [Mass/Vol] 3.0 g/dL Low 3.2-5.0 [facility] Comment on above: Performed By: #### L 501.2450, L500.3400 ####[facility] [address] [place], [address] ALK P 65 U/L Normal 45-117 [facility] Comment on above: Performed By: #### L 501.2450, L500.3400 ####[facility] [address] [place], [address] ALT [Catalytic activity/Vol] 15 U/L Normal 13-56 [facility] Comment on above: Performed By: #### L 501.2450, L500.3400 ####[facility] [address] [place], [address] AST [Catalytic activity/Vol] 10 U/L Low 15-37 [facility] Comment on above: Performed By: #### L 501.2450, L500.3400 ####[facility] [address] [place], [address] Bilirubin [Mass/Vol] 0.40 mg/dL Normal 0.20-1.00 [facility] Comment on above: Result Comment: For patients on eltrombopag therapy, use of Dimension Ivor TBIL is not recommended. Performed By: #### L 501.2450, L500.3400 ####[facility] [address] [place], [address] Bilirubin.direct [Mass/Vol] 0.16 mg/dL Normal 0.00-0.30 [facility] Comment on above: Performed By: #### L 501.2450, L500.3400 ####[facility] [address] [place], [address] Globulin (S) [Mass/Vol] 2.6 g/dL Normal 2.2-4.2 [facility] Comment on above: Performed By: #### L 501.2450, L500.3400 ####[facility] [address] [place], [place], [address] T PROT 5.6 g/dL Low 6.4-8.2 [facility] Comment on above: Performed By: #### L 501.2450, L500.3400 ####[facility] [address] [place], [place], [address] ,Serum,hCG Quali.on 04-21-2024 HCG, SERUM QUAL Negative Normal [facility] Comment on above: Performed By: #### L 700.5996 ####[facility] [address] [place], [place], [address] CNOVon 03-12-2024 CNOV Office Visit (ENDOIN ) KATHLEEN VILLA ([id number]) 1995 F T Date Time Provider Department [...] Hyperglycemia: Yes, but rare Type of Monitor: apprupt 630G/ Guardian Frequency of Monitorin-8 times a [...] 149 Trigly (more content not included)... Normal [facility] HEMOGLOBIN A1C (POC)on 03-12 HbA1c (Bld) [Mass fraction] 8.8 % Abnormal 4.3 - 5.6 % [facility] Comment on above: Location:[facility] john [place], [address] [place] [address], [place], [place], [address] Point of care (POC) Hemoglobin A1c (HGBA1C) [...] specific diabetes management situations: The POC device compressed gas plant worker provides a normal range of 4.2% to 6.5% for the HGBA1C POC test. However, the [place] Diabetes Association guidelines indicate that patients with [...] Interpretation and review of laboratory results Abnormal [facility] CNPNon 03-02-2024 CNPN Telephone (ENDOIN) KATHLEEN VILLA ([id number]) 1995 F [facility] Date Time Provider Department 03/02/24 KVNG [...] Date Reviewed: 12/13/2023 Reviewed by: Jessica Guerrero APRN.FORESTRY TECHNICAL OFFICER - Fully Assessed Reason for Visit: Forms [...] (post-traumatic stress disorder) [F43.10] 12/25/2012 DVT prophylaxis [[id number]] 12/25/2012 09/04/2013 DISPOSITION AND FOLLOW-UP [V999.01] 12/25/2012 09/04/2013 HTN (hypertension) [I10] Hypertension in , antepartum [O16.9] 09/19/2013 01/08/2014 GBS (group B Streptococcus carrier), +RV cultur*11/11/2013 04/16/2014 [Z34.90] 11/22/2013 04/16/2014 Diabetes mellitus in (HCC) [O24.919] 12/25/2013 04/16/2014 Diabetic ketoacidosis without coma associated w*01/08/2014 02/04/2023 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] 01/08/2014 DVT prophylaxis [XHR2734] 02/25/2014 04/16/2014 care and examination [Z39.2] 02/25/2014 [...] Encounter Status:Closed by ESTRELLITA MCCLENDON on 03/05/24 [facility] 02-14-2024 CNPN Telephone (ENDOIN) KATHLEEN VILLA ([id number]) 1995 [facility] Date Time Provider Department 02/14/24 KVNG LEWIS During your visit today, we recorded the following information about you: RamosJennifer 02/14/2024 1:51 PM Signed Patient stated that her 630G pump malfunctioned and she had to get a new one. Patient needs to now what settings to put the pump on. Patient can be reached at [phone] Estrellita Mcclendon RN 02/14/2024 4:43 PM Signed [...] Date Reviewed: 12/13/2023 Reviewed by: Jessica Guerrero APRN.FORESTRY TECHNICAL OFFICER - Fully Assessed Reason for Visit: machine [...] (post-traumatic stress disorder) [F43.10] 12/25/2012 DVT prophylaxis [[id number]] 12/25/2012 09/04/2013 DISPOSITION AND FOLLOW-UP [V999.01] 12/25/2012 09/04/2013 HTN (hypertension) [I10] Hypertension in , antepartum [O16.9] 09/19/2013 01/08/2014 GBS (group B Streptococcus carrier), +RV cultur*11/11/2013 04/16/2014 [Z34.90] 11/22/2013 04/16/2014 Diabetes mellitus in ([facility]) [O24.919] 12/25/2013 04/16/2014 Diabetic ketoacidosis without coma associated w*01/08/2014 02/04/2023 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] 01/08/2014 DVT prophylaxis [[id number]] 02/25/2014 04/16/2014 care and examination [Z39.2] 02/25/2014 [...] pain [R10.8 (more content not included)... Normal [facility] CNPNon 02-13-2024 CNPN Telephone (ENDOMN) KATHLEEN VILLA ([id number]) 1995 F [facility] Date Time Provider Department [...] MD Clinical Fellow PGY-4 Endocrinology and Metabolism [place] Allergies As of Date: 02/13/2024 Noted Allergy [...] Date Reviewed: 12/13/2023 Reviewed by: Jessica Guerrero APRN.FORESTRY TECHNICAL OFFICER - Fully Assessed Reason for Visit: Medication [...] (post-traumatic stress disorder) [F43.10] 12/25/2012 DVT prophylaxis [[id number]] 12/25/2012 09/04/2013 DISPOSITION AND FOLLOW-UP [V999.01] 12/25/2012 09/04/2013 HTN (hypertension) [I10] Hypertension in , antepartum [O16.9] 09/19/2013 01/08/2014 GBS (group B Streptococcus carrier), +RV cultur*11/11/2013 04/16/2014 [Z34.90] 11/22/2013 04/16/2014 Diabetes mellitus in (HCC) [O24.919] 12/25/2013 04/16/2014 Diabetic ketoacidosis without coma associated w*01/08/2014 02/04/2023 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] 01/08/2014 DVT prophylaxis [KOT1001] 02/25/2014 04/16/2014 care and examination [Z39.2] 02/25/2014 [...] 08/16/2022 Gastro (more content not included)... Normal [facility] CNOVon 12-13-2023 CNOV Office Visit (ENDOIN ) KATHLEEN VILLA ([id number]) 1995 F [facility] Date Time Provider Department 12/13/23 4:00 PM JESSICA GUERRERO During your visit today, we recorded the following information about you: Pulse Respiration Blood pressure Weight 80/minute 16/minute 139/87 77.1 kg Jessica Guerrero, POT MAKER.FORESTRY TECHNICAL OFFICER 12/13/2023 4:53 PM Signed ENDOCRINOLOGY AND METABOLISM [...] Other maternal great grandma I reviewed the Tours Captain's notes with this visit for vital signs, [...] 7.1 % Abnormal 4.3 - 5.6 % [facility] Absolute lymphocyte countOrd ered By: Lin Johansen on 10-25-2023 Lymphocytes Auto (Unsp spec) [#/Vol] 2.23 10*3/uL 0.83-4.51 [facility] Automated lymphocyte count a s percentage of total leukocytesOrdered By: Lin Johansen on 10-25-2023 Lymphocytes/100 WBC Auto (Unsp spec) 17.4 % 19-41 [facility] Basophil percentageOrdered B y: Lin Johansen on 10-25-2023 Basophils/100 WBC (Bld) 0.8 % 0-1 [facility] Chloride [Moles/Vol] 106 mmol/L 98-107 [facility] Eosinophils/100 WBC (Bld) 0.7 % 0-5 [facility] Glucose [Mass/Vol] 255 mg/dL 74-106 [facility] Comment on above: Glucose result great er than or equal to 200 mg/dLsuggests DIABETES MELLITUS per A.D.A. criteria. Hemoglobin (Bld) [Mass/Vol] 14.3 g/dL 12.0-15.0 [facility] Monocytes/100 WBC (Bld) 3.7 % 0-10 [facility] Neutrophils (Bld) [#/Vol] 9.8 10*3/uL 2.0-7.7 [facility] Neutrophils/100 WBC (Bld) 76.5 % 47-70 [facility] Potassium [Moles/Vol] 4.3 mmol/L 3.5-5.1 [facility] Sodium [Moles/Vol] 137 mmol/L 136-145 [facility] WBC (Bld) [#/Vol] 12.8 10*3/uL 4.4-11.0 [facility] Determination of erythrocyte mean corpuscular volume (MCV)Ordered By: Lin Johansen on 10-25-2023 MCV (RBC) [Entitic vol] 89.6 fL 81-99 [facility] Erythrocyte distribution wid th ratioOrdered By: Lin Johansen on 10-25-2023 Erythrocyte distribution width (RBC) [Ratio] 13.9 % 11.6-14.6 [facility] Erythrocyte distribution wid th standard deviationOrdered By: Lin Johansen on 10-25-2023 Erythrocyte distribution width (RBC) [Entitic vol] 46.0 fL 35.1-43.9 [facility] Hematocrit Auto (Bld) [Volum e fraction]Ordered By: Lin Johansen on 10-25-2023 Hematocrit (Bld) [Volume fraction] 44.7 % 37-47 [facility] Immature granulocytes/100 WB C Auto (Bld)Ordered By: Lin Johansen on 10-25-2023 Immature granulocytes/100 WBC (Bld) 0.900 % 0.0-0.9 [facility] Comment on above: IG% - Immature Granu locytes (promyelocytes, myelocytes and metamyelocytes) > 1% indicates that a LEFT SHIFT is Present. Laboratory - Chemistry and C hemistry - challengeOrdered By: Lin Johansen on 10-25-2023 CO2 [Moles/Vol] 23.0 mmol/L 21.0-32.0 [facility] Urea nitrogen/Creatinine [Mass ratio] 21.5 mg/mg 10-20 [facility] Laboratory - Drug toxicology Ordered By: Lin Johansen on 10-25-2023 Amphetamines Ql (U) Negative <1000 ng/mL [facility] Benzodiazepines Ql (U) Negative < 200 ng/mL [facility] Cannabinoids Screen Ql (U) Positive < 50 ng/mL [facility] Cocaine Ql (U) Negative < 300 ng/mL [facility] Opiates Ql (U) Negative < 300 ng/mL [facility] Laboratory - Hematology and Cell countsOrdered By: Lin Johansen on 10-25-2023 MCH (RBC) [Entitic mass] 28.7 pg 27.0-32.0 [facility] MCHC (RBC) [Mass/Vol] 32.0 g/dL 32-36 [facility] Nucleated RBC/100 WBC (Bld) [Ratio] 0 % 0-5 [facility] Platelet mean volume (Bld) [Entitic vol] 11.9 fL 6.2-12.0 [facility] Platelets (Bld) [#/Vol] 171 10*3/uL 150-450 [facility] No Panel InformationOrdered By: Lin Johansen on 10-25-2023 Estimated Creatinine Clearance Calc 109.81 ml/min [facility] Estimated GFR (MDRD) Amer 110 mL/min >60 [facility] Comment on above: GFR Calc Estimated GFR (MDRD) Non-Af Amer 91 mL/min >60 [facility] Comment on above: Non- GFR Calc Ethyl Alcohol Level < 3.0 mg/dL [facility] Comment on above: The serum:whole bloo d ethanol ratio is approximately 1.14and varies slightly with hematocrit. Medical Alcohol reference interval and critical value innon-tolerant individuals; 50 - 100 Impairment 100 Intoxication 100 - 250 Severe Poisoning 250 - 400 Deep/possible fatal coma MDMA (Ecstasy) Screen Negative < 500 ng/mL [facility] Urine Barbiturates Screen Negative < 200 ng/mL [facility] Urine Drug Screen Comment [facility] Comment on above: CONFIRMATORY TESTING FOR [...] Urine Methadone Screen Negative < 300 ng/mL [facility] RBC Auto (Bld) [#/Vol]Ordere d By: Lin Johansen on 10-25-2023 RBC (Bld) [#/Vol] 4.99 10*6/uL 4.2-5.4 [facility] Serum or plasma calcium milli urement (mass/volume)Ordered By: Lin Johansen on 10-25-2023 Calcium [Mass/Vol] 9.0 mg/dL 8.5-10.1 [facility] Serum or plasma choriogonado tropin detectionOrdered By: Lin Johansen on 10-25-2023 HCG ( test) Ql Negative [facility] Serum or plasma creatinine m easurement (mass/volume)Ordered By: Lin Johansen on 10-25-2023 Creatinine [Mass/Vol] 0.79 mg/dL 0.55-1.02 [facility] Comment on above: The validity of the calculated GFR & GFRAA in patients over 70 years has not been determined. Clinical correlation is essential. Serum or plasma urea nitroge n measurement (mass/volume)Ordered By: Lin Johansen on 10-25-2023 Urea nitrogen [Mass/Vol] 17 mg/dL 7-18 [facility] Thin prep Papanicolaou smear with manual screeningOrdered By: Lin Johansen on 10-25-2023 Thin prep Papanicolaou smear with manual screening 60 mg/dL 74-106 [facility] Comment on above: MANAGEMENT OF PATIEN T CARE PER NURSING PROTOCOL Thin prep Papanicolaou smear with manual screening 8 5-15 [facility] Urine phencyclidine (PCP) de tectionOrdered By: Lin Johansen on 10-25-2023 Phencyclidine Ql (U) Negative < 25 ng/mL [facility] Absolute lymphocyte countOrd ered By: Vita Jefferson on 10-18-2023 Lymphocytes Auto (Unsp spec) [#/Vol] 2.87 10*3/uL 0.83-4.51 [facility] Automated lymphocyte count a s percentage of total leukocytesOrdered By: Vita Jefferson on 10-18-2023 Lymphocytes/100 WBC Auto (Unsp spec) 32.5 % 19-41 [facility] Basophil percentageOrdered B y: Vita Jefferson on 10-18-2023 Basophils/100 WBC (Bld) 0.3 % 0-1 [facility] Chloride [Moles/Vol] 110 mmol/L 98-107 [facility] Eosinophils/100 WBC (Bld) 1.0 % 0-5 [facility] Glucose [Mass/Vol] 227 mg/dL 74-106 [facility] Comment on above: Glucose result great er than or equal to 200 mg/dLsuggests DIABETES MELLITUS per A.D.A. criteria. Hemoglobin (Bld) [Mass/Vol] 12.0 g/dL 12.0-15.0 [facility] Monocytes/100 WBC (Bld) 6.0 % 0-10 [facility] Neutrophils (Bld) [#/Vol] 5.3 10*3/uL 2.0-7.7 [facility] Neutrophils/100 WBC (Bld) 59.5 % 47-70 [facility] Potassium [Moles/Vol] 4.1 mmol/L 3.5-5.1 [facility] Sodium [Moles/Vol] 138 mmol/L 136-145 [facility] WBC (Bld) [#/Vol] 8.8 10*3/uL 4.4-11.0 [facility] Determination of erythrocyte mean corpuscular volume (MCV)Ordered By: Vita Jefferson on 10-18-2023 MCV (RBC) [Entitic vol] 89.4 fL 81-99 [facility] Erythrocyte distribution wid th ratioOrdered By: Vita Jefferson on 10-18-2023 Erythrocyte distribution width (RBC) [Ratio] 13.2 % 11.6-14.6 [facility] Erythrocyte distribution wid th standard deviationOrdered By: Vita Jefferson on 10-18-2023 Erythrocyte distribution width (RBC) [Entitic vol] 43.0 fL 35.1-43.9 [facility] Hematocrit Auto (Bld) [Volum e fraction]Ordered By: Vita Jefferson on 10-18-2023 Hematocrit (Bld) [Volume fraction] 36.4 % 37-47 [facility] Immature granulocytes/100 WB C Auto (Bld)Ordered By: Vita Jefferson on 10-18-2023 Immature granulocytes/100 WBC (Bld) 0.700 % 0.0-0.9 [facility] Comment on above: IG% - Immature Granu locytes (promyelocytes, myelocytes and metamyelocytes) > 1% indicates that a LEFT SHIFT is Present. Laboratory - Chemistry and C hemistry - challengeOrdered By: Vita Jefferson on 10-18-2023 CO2 [Moles/Vol] 25.0 mmol/L 21.0-32.0 [facility] Urea nitrogen/Creatinine [Mass ratio] 24.0 mg/mg 10-20 [facility] Laboratory - Hematology and Cell countsOrdered By: Vita Jefferson on 10-18-2023 MCH (RBC) [Entitic mass] 29.5 pg 27.0-32.0 [facility] MCHC (RBC) [Mass/Vol] 33.0 g/dL 32-36 [facility] Nucleated RBC/100 WBC (Bld) [Ratio] 0 % 0-5 [facility] Platelet mean volume (Bld) [Entitic vol] 12.1 fL 6.2-12.0 [facility] Platelets (Bld) [#/Vol] 111 10*3/uL 150-450 [facility] No Panel InformationOrdered By: Vita Jefferson on 10-18-2023 Estimated Creatinine Clearance Calc 129.48 ml/min [facility] Estimated GFR (MDRD) Amer 135 mL/min >60 [facility] Comment on above: GFR Calc Estimated GFR (MDRD) Non-Af Amer 111 mL/min >60 [facility] Comment on above: Non- GFR Calc RBC Auto (Bld) [#/Vol]Ordere d By: Vita Jefferson on 10-18-2023 RBC (Bld) [#/Vol] 4.07 10*6/uL 4.2-5.4 [facility] Serum or plasma calcium milli urement (mass/volume)Ordered By: Vita Jefferson on 10-18-2023 Calcium [Mass/Vol] 7.6 mg/dL 8.5-10.1 [facility] Serum or plasma creatinine m easurement (mass/volume)Ordered By: Vita Jefferson on 10-18-2023 Creatinine [Mass/Vol] 0.67 mg/dL 0.55-1.02 [facility] Comment on above: The validity of the calculated GFR & GFRAA in patients over 70 years has not been determined. Clinical correlation is essential. Serum or plasma urea nitroge n measurement (mass/volume)Ordered By: Vita Jefferson on 10-18-2023 Urea nitrogen [Mass/Vol] 16 mg/dL 7-18 [facility] Thin prep Papanicolaou smear with manual screeningOrdered By: Vita Jefferson on 10-18-2023 Thin prep Papanicolaou smear with manual screening 3 5-15 [facility] Absolute lymphocyte countOrd ered By: Alexandro Garces on 10-17-2023 Lymphocytes Auto (Unsp spec) [#/Vol] 1.06 10*3/uL 0.83-4.51 [facility] Automated lymphocyte count a s percentage of total leukocytesOrdered By: Alexandro Garces on 10-17-2023 Lymphocytes/100 WBC Auto (Unsp spec) 7.8 % 19-41 [facility] Basophil percentageOrdered B y: Alexandro Garces on 10-17-2023 Basophils/100 WBC (Bld) 0.4 % 0-1 [facility] Chloride [Moles/Vol] 98 mmol/L 98-107 [facility] Eosinophils/100 WBC (Bld) 0.1 % 0-5 [facility] Glucose [Mass/Vol] 534 mg/dL 74-106 [facility] Comment on above: Critical Result(s) C alled at: 10:55:26 10/17/2023 by: Nan Bray. Results read back by same.Glucose result greater than or equal to 200 mg/dLsuggests DIABETES MELLITUS per A.D.A. criteria. Hemoglobin (Bld) [Mass/Vol] 13.6 g/dL 12.0-15.0 [facility] Monocytes/100 WBC (Bld) 2.4 % 0-10 [facility] Neutrophils (Bld) [#/Vol] 12.0 10*3/uL 2.0-7.7 [facility] Neutrophils/100 WBC (Bld) 88.4 % 47-70 [facility] Potassium [Moles/Vol] 4.8 mmol/L 3.5-5.1 [facility] Sodium [Moles/Vol] 132 mmol/L 136-145 [facility] WBC (Bld) [#/Vol] 13.6 10*3/uL 4.4-11.0 [facility] Determination of erythrocyte mean corpuscular volume (MCV)Ordered By: Alexandro Garces on 10-17-2023 MCV (RBC) [Entitic vol] 90.2 fL 81-99 [facility] Erythrocyte distribution wid th ratioOrdered By: Alexandro Garces on 10-17-2023 Erythrocyte distribution width (RBC) [Ratio] 13.1 % 11.6-14.6 [facility] Erythrocyte distribution wid th standard deviationOrdered By: Alexandro Garces on 10-17-2023 Erythrocyte distribution width (RBC) [Entitic vol] 43.1 fL 35.1-43.9 [facility] Hematocrit Auto (Bld) [Volum e fraction]Ordered By: Alexandro Garces on 10-17-2023 Hematocrit (Bld) [Volume fraction] 42.5 % 37-47 [facility] Immature granulocytes/100 WB C Auto (Bld)Ordered By: Alexandro Garces on 10-17-2023 Immature granulocytes/100 WBC (Bld) 0.900 % 0.0-0.9 [facility] Comment on above: IG% - Immature Granu locytes (promyelocytes, myelocytes and metamyelocytes) > 1% indicates that a LEFT SHIFT is Present. Laboratory - Chemistry and C hemistry - challengeOrdered By: Alexandro Garces on 10-17-2023 CO2 [Moles/Vol] 16.0 mmol/L 21.0-32.0 [facility] Urea nitrogen/Creatinine [Mass ratio] 18.6 mg/mg -20 [facility] Laboratory - Hematology and Cell countsOrdered By: Alexandro Garces on 10-17-2023 MCH (RBC) [Entitic mass] 28.9 pg 27.0-32.0 [facility] MCHC (RBC) [Mass/Vol] 32.0 g/dL 32-36 [facility] Nucleated RBC/100 WBC (Bld) [Ratio] 0 % 0-5 [facility] Platelet mean volume (Bld) [Entitic vol] 12.2 fL 6.2-12.0 [facility] Platelets (Bld) [#/Vol] 138 10*3/uL 150-450 [facility] No Panel InformationOrdered By: Alexandro Garces on 10-17-2023 Estimated Creatinine Clearance Calc 73.52 ml/min [facility] Estimated GFR (MDRD) Amer 70 mL/min >60 [facility] Comment on above: GFR Calc Estimated GFR (MDRD) Non-Af Amer 58 mL/min >60 [facility] Comment on above: Non- GFR Calc RBC Auto (Bld) [#/Vol]Ordere d By: Alexandro Garces on 10-17-2023 RBC (Bld) [#/Vol] 4.71 10*6/uL 4.2-5.4 [facility] Serum or plasma acetone milli urement (mass/volume)Ordered By: Alexandro Garces on 10-17-2023 Acetone [Mass/Vol] MODERATE NEG [facility] Serum or plasma calcium milli urement (mass/volume)Ordered By: Alexandro Garces on 10-17-2023 Calcium [Mass/Vol] 9.1 mg/dL 8.5-10.1 [facility] Serum or plasma creatinine m easurement (mass/volume)Ordered By: Alexandro Garces on 10-17-2023 Creatinine [Mass/Vol] 1.18 mg/dL 0.55-1.02 [facility] Comment on above: The validity of the calculated GFR & GFRAA in patients over 70 years has not been determined. Clinical correlation is essential. Serum or plasma urea nitroge n measurement (mass/volume)Ordered By: Alexandro Garces on 10-17-2023 Urea nitrogen [Mass/Vol] 22 mg/dL 7-18 [facility] Thin prep Papanicolaou smear with manual screeningOrdered By: Vita Jefferson on 10-17-2023 Thin prep Papanicolaou smear with manual screening 293 mg/dL 74-106 [facility] Comment on above: MANAGEMENT OF PATIEN T CARE PER NURSING PROTOCOL Thin prep Papanicolaou smear with manual screeningOrdered By: Alexandro Garces on 10-17-2023 Thin prep Papanicolaou smear with manual screening 18 5-15 [facility] Absolute lymphocyte countOrd ered By: Olvin Ibarra on 09-25-2023 Lymphocytes Auto (Unsp spec) [#/Vol] 0.95 10*3/uL 0.83-4.51 [facility] Automated lymphocyte count a s percentage of total leukocytesOrdered By: Olvin Ibarra on 09-25-2023 Lymphocytes/100 WBC Auto (Unsp spec) 15.8 % 19-41 [facility] Basophil percentageOrdered B y: Olvin Ibarra on 09-25-2023 Basophils/100 WBC (Bld) 0.3 % 0-1 [facility] Chloride [Moles/Vol] 106 mmol/L 98-107 [facility] Eosinophils/100 WBC (Bld) 0.2 % 0-5 [facility] Glucose [Mass/Vol] 331 mg/dL 74-106 [facility] Comment on above: Glucose result great er than or equal to 200 mg/dLsuggests DIABETES MELLITUS per A.D.A. criteria. Hemoglobin (Bld) [Mass/Vol] 13.2 g/dL 12.0-15.0 [facility] Monocytes/100 WBC (Bld) 12.0 % 0-10 [facility] Neutrophils (Bld) [#/Vol] 4.2 10*3/uL 2.0-7.7 [facility] Neutrophils/100 WBC (Bld) 70.4 % 47-70 [facility] Potassium [Moles/Vol] 3.7 mmol/L 3.5-5.1 [facility] Sodium [Moles/Vol] 135 mmol/L 136-145 [facility] WBC (Bld) [#/Vol] 6.0 10*3/uL 4.4-11.0 [facility] Blood platelet adequacy dete ction by light microscopyOrdered By: Olvin Ibarra on 09-25-2023 Platelets LM Ql (Bld) MOD DEC ADEQ [facility] Determination of erythrocyte mean corpuscular volume (MCV)Ordered By: Olvin Ibarra on 09-25-2023 MCV (RBC) [Entitic vol] 90.2 fL 81-99 [facility] Erythrocyte distribution wid th ratioOrdered By: Olvin Ibarra on 09-25-2023 Erythrocyte distribution width (RBC) [Ratio] 13.8 % 11.6-14.6 [facility] Erythrocyte distribution wid th standard deviationOrdered By: Olvin Ibarra on 09-25-2023 Erythrocyte distribution width (RBC) [Entitic vol] 45.7 fL 35.1-43.9 [facility] Hematocrit Auto (Bld) [Volum e fraction]Ordered By: Olvin Ibarra on 09-25-2023 Hematocrit (Bld) [Volume fraction] 41.6 % 37-47 [facility] Immature granulocytes/100 WB C Auto (Bld)Ordered By: Olvin Ibarra on 09-25-2023 Immature granulocytes/100 WBC (Bld) 1.300 % 0.0-0.9 [facility] Comment on above: IG% - Immature Granu locytes (promyelocytes, myelocytes and metamyelocytes) > 1% indicates that a LEFT SHIFT is Present. Laboratory - Chemistry and C hemistry - challengeOrdered By: Olvin Ibarra on 09-25-2023 CO2 [Moles/Vol] 18.0 mmol/L 21.0-32.0 [facility] Urea nitrogen/Creatinine [Mass ratio] 15.6 mg/mg 10-20 [facility] Laboratory - Hematology and Cell countsOrdered By: Olvin Ibarra on 09-25-2023 MCH (RBC) [Entitic mass] 28.6 pg 27.0-32.0 [facility] MCHC (RBC) [Mass/Vol] 31.7 g/dL 32-36 [facility] Nucleated RBC/100 WBC (Bld) [Ratio] 0 % 0-5 [facility] Platelets (Bld) [#/Vol] 76 10*3/uL 150-450 [facility] No Panel InformationOrdered By: Olvin Ibarra on 09-25-2023 Estimated Creatinine Clearance Calc 96.39 ml/min [facility] Estimated GFR (MDRD) Amer 96 mL/min >60 [facility] Comment on above: GFR Calc Estimated GFR (MDRD) Non-Af Amer 79 mL/min >60 [facility] Comment on above: Non- GFR Calc Platelet mean volume Dong-Ec ker (Bld) [Entitic vol]Ordered By: Olvin Ibarra on 09-25-2023 Platelet mean volume (Bld) [Entitic vol] 12.8 fL 6.2-12.0 [facility] RBC Auto (Bld) [#/Vol]Ordere d By: Olvin Ibarra on 09-25-2023 RBC (Bld) [#/Vol] 4.61 10*6/uL 4.2-5.4 [facility] Serum or plasma calcium milli urement (mass/volume)Ordered By: Olvin Ibarra on 09-25-2023 Calcium [Mass/Vol] 8.4 mg/dL 8.5-10.1 [facility] Serum or plasma creatinine m easurement (mass/volume)Ordered By: Olvin Ibarra on 09-25-2023 Creatinine [Mass/Vol] 0.90 mg/dL 0.55-1.02 [facility] Comment on above: The validity of the calculated GFR & GFRAA in patients over 70 years has not been determined. Clinical correlation is essential. Serum or plasma urea nitroge n measurement (mass/volume)Ordered By: Olvin Ibarra on 09-25-2023 Urea nitrogen [Mass/Vol] 14 mg/dL 7-18 [facility] Thin prep Papanicolaou smear with manual screeningOrdered By: Olvin Stacey on 09-25-2023 Thin prep Papanicolaou smear with manual screening 11 5-15 [facility] Laboratory - Microbiology an d Antimicrobial susceptibilityOrdered By: Siddharth Michelle on 09-24-2023 SARS-CoV-2 (COVID-19) RNA DANIEL+probe Ql (Unsp spec) Influenzae B [facility] Absolute lymphocyte countOrd ered By: Rm Chirinos on 09-20-2023 Lymphocytes Auto (Unsp spec) [#/Vol] 0.75 10*3/uL 0.83-4.51 [facility] Automated lymphocyte count a s percentage of total leukocytesOrdered By: Rm Chirinos on 09-20-2023 Lymphocytes/100 WBC Auto (Unsp spec) 4.6 % 19-41 [facility] Base excessOrdered By: Rm siddiqi on 09-20-2023 Base excess Calc (BldV) [Moles/Vol] -5 mmol/L -1.0-3.5 [facility] Basophil percentageOrdered B y: Rm Chirinos on 09-20-2023 Basophil percentage 0 SEEN /hpf 0-5 [facility] Basophils/100 WBC (Bld) 0.4 % 0-1 [facility] Chloride [Moles/Vol] 102 mmol/L 98-107 [facility] Eosinophils/100 WBC (Bld) 0.0 % 0-5 [facility] Glucose [Mass/Vol] 534 mg/dL 74-106 [facility] Comment on above: Critical Result(s) C alled at: 12:17:31 09/20/2023 by: Reid Rogers. Colin Lo RN (ER). Results read back by same.Glucose result greater than or equal to 200 mg/dLsuggests DIABETES MELLITUS per A.D.A. criteria. Hemoglobin (Bld) [Mass/Vol] 13.4 g/dL 12.0-15.0 [facility] Monocytes/100 WBC (Bld) 2.8 % 0-10 [facility] Neutrophils (Bld) [#/Vol] 14.7 10*3/uL 2.0-7.7 [facility] Neutrophils/100 WBC (Bld) 91.2 % 47-70 [facility] Potassium [Moles/Vol] 4.9 mmol/L 3.5-5.1 [facility] Sodium [Moles/Vol] 132 mmol/L 136-145 [facility] WBC (Bld) [#/Vol] 16.2 10*3/uL 4.4-11.0 [facility] Bilirubin Test strip Ql (U)O rdered By: Rm Chirinos on 09-20-2023 Bilirubin Ql (U) Negative Negative [facility] CO2 (BldV) [Moles/Vol]Ordere d By: Rm Chirinos on 09-20-2023 CO2 [Moles/Vol] 22 mmol/L 23-33 [facility] Determination of erythrocyte mean corpuscular volume (MCV)Ordered By: Rm Chirinos on 09-20-2023 MCV (RBC) [Entitic vol] 90.3 fL 81-99 [facility] Erythrocyte distribution wid th ratioOrdered By: Rm Chirinos on 09-20-2023 Erythrocyte distribution width (RBC) [Ratio] 13.5 % 11.6-14.6 [facility] Erythrocyte distribution wid th standard deviationOrdered By: Rmej Chirinos on 09-20-2023 Erythrocyte distribution width (RBC) [Entitic vol] 44.9 fL 35.1-43.9 [facility] Hematocrit Auto (Bld) [Volum e fraction]Ordered By: Rm Chirinos on 09-20-2023 Hematocrit (Bld) [Volume fraction] 41.8 % 37-47 [facility] Immature granulocytes/100 WB C Auto (Bld)Ordered By: Rm Chirinos on 09-20-2023 Immature granulocytes/100 WBC (Bld) 1.000 % 0.0-0.9 [facility] Comment on above: IG% - Immature Granu locytes (promyelocytes, myelocytes and metamyelocytes) > 1% indicates that a LEFT SHIFT is Present. Ketones Test strip Ql (U)Ord ered By: Rm Chirinos on 09-20-2023 Ketones Ql (U) 150 mg/dl Negative [facility] Comment on above: CRITICAL VALUE *HCRI TICAL VALUE VERIFIED. CALLED TO WILFREDO SALEEM (ER)09/20/23 1215 [address].RESULTS READ BACK BY SAME. Laboratory - Chemistry and C hemistry - challengeOrdered By: Rm Chirinos on 09-20-2023 CO2 [Moles/Vol] 21.0 mmol/L 21.0-32.0 [facility] Urea nitrogen/Creatinine [Mass ratio] 19.1 mg/mg 10-20 [facility] Laboratory - Hematology and Cell countsOrdered By: Rm Chirinos on 09-20-2023 MCH (RBC) [Entitic mass] 28.9 pg 27.0-32.0 [facility] MCHC (RBC) [Mass/Vol] 32.1 g/dL 32-36 [facility] Nucleated RBC/100 WBC (Bld) [Ratio] 0 % 0-5 [facility] Platelets (Bld) [#/Vol] 111 10*3/uL 150-450 [facility] Mucus LM Ql (Urine sed)Order ed By: Rm Chirinos on 09-20-2023 Mucus Ql (Urine sed) 0 SEEN /hpf [facility] Nitrite Test strip Ql (U)Ord ered By: Rm Chirinos on 09-20-2023 Nitrite Ql (U) Negative Negative [facility] No Panel InformationOrdered By: Rm Chirinos on 09-20-2023 Blood Gas Sample Site Not entered [facility] Blood Gas Specimen Type ISABELLE [facility] Oxygen Delivery Device Room Air [facility] Urine RBC 0 SEEN /hpf 0-5 [facility] Estimated Creatinine Clearance Calc 93.93 ml/min [facility] Estimated GFR (MDRD) Amer 85 mL/min >60 [facility] Comment on above: GFR Calc Estimated GFR (MDRD) Non-Af Amer 70 mL/min >60 [facility] Comment on above: Non- GFR Calc PCO2 venousOrdered By: Rm siddiqi on 09-20-2023 CO2 (BldV) [Partial pressure] 37.3 mm[Hg] 41-51 [facility] PO2 venousOrdered By: Rm sahni on 09-20-2023 Oxygen (BldV) [Partial pressure] 64 mm[Hg] 25-40 [facility] Platelet mean volume Dong-Ec ker (Bld) [Entitic vol]Ordered By: Rm Chirinos on 09-20-2023 Platelet mean volume (Bld) [Entitic vol] 13.3 fL 6.2-12.0 [facility] Protein Test strip Ql (U)Ord ered By: Rm Chirinos on 09-20-2023 Protein Ql (U) 15 mg/dl Negative [facility] RBC Auto (Bld) [#/Vol]Ordere d By: Rm Chirinos on 09-20-2023 RBC (Bld) [#/Vol] 4.63 10*6/uL 4.2-5.4 [facility] Serum or plasma calcium milli urement (mass/volume)Ordered By: Rm Chirinos on 09-20-2023 Calcium [Mass/Vol] 8.8 mg/dL 8.5-10.1 [facility] Serum or plasma creatinine m easurement (mass/volume)Ordered By: Rm Chirinos on 09-20-2023 Creatinine [Mass/Vol] 1.00 mg/dL 0.55-1.02 [facility] Comment on above: The validity of the calculated GFR & GFRAA in patients over 70 years has not been determined. Clinical correlation is essential. Serum or plasma urea nitroge n measurement (mass/volume)Ordered By: Rm Chirinos on 09-20-2023 Urea nitrogen [Mass/Vol] 19 mg/dL 7-18 [facility] Squamous epithelial cells de tection in urine sediment by light microscopyOrdered By: Rm Chirinos on 09-20-2023 Epithelial cells.squamous LM Ql (Urine sed) 0-5 SEEN /hpf 5-10 [facility] Thin prep Papanicolaou smear with manual screeningOrdered By: Rm Chirinos on 09-20-2023 Thin prep Papanicolaou smear with manual screening 264 mg/dL 74-106 [facility] Comment on above: MANAGEMENT OF PATIEN T CARE PER NURSING PROTOCOL Thin prep Papanicolaou smear with manual screening 9 5-15 [facility] Urine blood detectionOrdered By: Rm Chirinos on 09-20-2023 RBC Ql (U) Negative Negative [facility] Urine clarityOrdered By: Rm Chirinos on 09-20-2023 Clarity (U) Sl. Cloudy Clear [facility] Urine color determinationOrd ered By: Rm Chirinos on 09-20-2023 Color (U) Yellow Yellow [facility] Urine glucose detectionOrder ed By: Rm Chirinos on 09-20-2023 Glucose Ql (U) 1000 mg/dl Normal [facility] Urine leukocyte esterase det ection by dipstickOrdered By: Rm Chirinos on 09-20-2023 Leukocyte esterase Test strip Ql (U) Negative Negative [facility] Urine pHOrdered By: Rm pagan on 09-20-2023 pH (U) 6.0 [pH] 5.0 - 8.0 [facility] Urine sediment bacteria coun t by microscopy (number/high power field)Ordered By: Rm Chirinos on 09-20-2023 Bacteria LM.HPF (Urine sed) [#/Area] 0 /[HPF] None Seen [facility] Urine specific gravity measu rementOrdered By: Rm Chirinos on 09-20-2023 Specific gravity (U) [Rel density] 1.010 1.002-1.030 [facility] Urine urobilinogen measureme ntOrdered By: Rm Chirinos on 09-20-2023 Urobilinogen Ql (U) Normal mg/dl Normal [facility] Venous blood bicarbonate penelope surementOrdered By: Rm Chirinos on 09-20-2023 HCO3 (BldCoV) [Moles/Vol] 21 mmol/L 22-26 [facility] Venous blood oxygen saturati on (pure mass fraction)Ordered By: Rm Chirinos on 09-20-2023 SaO2% (BldV) [Pure mass fraction] 91 % 50-70 [facility] Venous blood pH measurementO rdered By: Rm Chirinos on 09-20-2023 pH (BldV) 7.35 [pH] 7.32-7.42 [facility] Absolute lymphocyte countOrd ered By: Greg Philip on 09-06-2023 Lymphocytes Auto (Unsp spec) [#/Vol] 2.47 10*3/uL 0.83-4.51 [facility] Basophil percentageOrdered B y: Greg Philip on 09-06-2023 Basophil percentage 0-5 SEEN /hpf 0-5 [facility] Basophils/100 WBC (Bld) 0.4 % 0-1 [facility] Bilirubin [Mass/Vol] 0.50 mg/dL 0.20-1.00 [facility] Comment on above: For patients on eltr ombopag therapy, use of Dimension Ivor TBIL is not recommended. Chloride [Moles/Vol] 111 mmol/L 98-107 [facility] Eosinophils/100 WBC (Bld) 0.7 % 0-5 [facility] Glucose [Mass/Vol] 101 mg/dL 74-106 [facility] Comment on above: Fasting Glucose resu lt from 100 to 125 mg/dL suggests IMPAIRED HOMEOSTASIS per A.D.A. criteria. Neutrophils (Bld) [#/Vol] 6.5 10*3/uL 2.0-7.7 [facility] Neutrophils/100 WBC (Bld) 67.1 % 47-70 [facility] Potassium [Moles/Vol] 3.9 mmol/L 3.5-5.1 [facility] Protein [Mass/Vol] 6.8 g/dL 6.4-8.2 [facility] Sodium [Moles/Vol] 142 mmol/L 136-145 [facility] WBC (Bld) [#/Vol] 9.6 10*3/uL 4.4-11.0 [facility] Beta hCG serum qualOrdered B y: Greg Philip on 09-06-2023 Beta HCG ( test) Ql Negative [facility] Bilirubin Test strip Ql (U)O rdered By: Greg Philip on 09-06-2023 Bilirubin Ql (U) Negative Negative [facility] Blood erythrocytes count (nu mber/volume)Ordered By: Greg Philip on 09-06-2023 RBC (Bld) [#/Vol] 4.34 10*6/uL 4.2-5.4 [facility] Blood hemoglobin measurement (mass/volume)Ordered By: Greg Philip on 09-06-2023 Hemoglobin (Bld) [Mass/Vol] 12.7 g/dL 12.0-15.0 [facility] Blood lymphocytes/100 leukoc ytesOrdered By: Greg Philip on 09-06-2023 Lymphocytes/100 WBC (Bld) 25.6 % 19-41 [facility] Blood monocytes/100 leukocyt esOrdered By: Greg Philip on 09-06-2023 Monocytes/100 WBC (Bld) 5.7 % 0-10 [facility] Blood platelet mean volumeOr dered By: Greg Philip on 09-06-2023 Platelet mean volume (Bld) [Entitic vol] 12.4 fL 6.2-12.0 [facility] Determination of erythrocyte mean corpuscular volume (MCV)Ordered By: Greg Philip on 09-06-2023 MCV (RBC) [Entitic vol] 91.0 fL 81-99 [facility] Hematocrit Auto (Bld) [Volum e fraction]Ordered By: Greg Philip on 09-06-2023 Hematocrit (Bld) [Volume fraction] 39.5 % 37-47 [facility] Ketones Test strip Ql (U)Ord ered By: Greg Philip on 09-06-2023 Ketones Ql (U) 5 mg/dl Negative [facility] Laboratory - Chemistry and C hemistry - challengeOrdered By: Greg Philip on 09-06-2023 ALP [Catalytic activity/Vol] 69 U/L 45-117 [facility] ALT [Catalytic activity/Vol] 47 U/L 13-56 [facility] CO2 [Moles/Vol] 27.0 mmol/L 21.0-32.0 [facility] Globulin (S) [Mass/Vol] 3.2 g/dL 2.2-4.2 [facility] Urea nitrogen/Creatinine [Mass ratio] 22.9 mg/mg 10-20 [facility] Laboratory - Hematology and Cell countsOrdered By: Greg Philip on 09-06-2023 Erythrocyte distribution width (RBC) [Entitic vol] 45.5 fL 35.1-43.9 [facility] Erythrocyte distribution width (RBC) [Ratio] 13.6 % 11.6-14.6 [facility] Immature granulocytes/100 WBC (Bld) 0.500 % 0.0-0.9 [facility] Comment on above: IG% - Immature Granu locytes (promyelocytes, myelocytes and metamyelocytes) > 1% indicates that a LEFT SHIFT is Present. MCH (RBC) [Entitic mass] 29.3 pg 27.0-32.0 [facility] Nucleated RBC/100 WBC (Bld) [Ratio] 0 % 0-5 [facility] MCHC Auto (RBC) [Mass/Vol]Or dered By: Greg Philip on 09-06-2023 MCHC (RBC) [Mass/Vol] 32.2 g/dL 32-36 [facility] Mucus LM Ql (Urine sed)Order ed By: Greg Philip on 09-06-2023 Mucus Ql (Urine sed) 1+ /hpf [facility] Nitrite Test strip Ql (U)Ord ered By: Greg Philip on 09-06-2023 Nitrite Ql (U) Negative Negative [facility] No Panel InformationOrdered By: Greg Philip on 09-06-2023 Estimated Creatinine Clearance Calc 131.44 ml/min [facility] Estimated GFR (MDRD) Amer 137 mL/min >60 [facility] Comment on above: GFR Calc Estimated GFR (MDRD) Non-Af Amer 113 mL/min >60 [facility] Comment on above: Non- GFR Calc Platelets bldOrdered By: Allyn Philip on 09-06-2023 Platelets (Bld) [#/Vol] 144 10*3/uL 150-450 [facility] Protein Test strip Ql (U)Ord ered By: Greg Philip on 09-06-2023 Protein Ql (U) 15 mg/dl Negative [facility] Serum or plasma albumin milli urement (mass/volume)Ordered By: Greg Philip on 09-06-2023 Albumin [Mass/Vol] 3.6 g/dL 3.2-5.0 [facility] Serum or plasma albumin/glob ulin mass ratioOrdered By: Greg Philip on 09-06-2023 Albumin/Globulin [Mass ratio] 1.1 {ratio} 0.9-2.4 [facility] Serum or plasma calcium milli urement (mass/volume)Ordered By: Greg Philip on 09-06-2023 Calcium [Mass/Vol] 8.5 mg/dL 8.5-10.1 [facility] Serum or plasma creatinine m easurement (mass/volume)Ordered By: Greg Philip on 09-06-2023 Creatinine [Mass/Vol] 0.66 mg/dL 0.55-1.02 [facility] Comment on above: The validity of the calculated GFR & GFRAA in patients over 70 years has not been determined. Clinical correlation is essential. Serum or plasma urea nitroge n measurement (mass/volume)Ordered By: Greg Philip on 09-06-2023 Urea nitrogen [Mass/Vol] 15 mg/dL 7-18 [facility] Squamous epithelial cells de tection in urine sediment by light microscopyOrdered By: Greg Philip on 09-06-2023 Epithelial cells.squamous LM Ql (Urine sed) 5-10 SEEN /hpf 5-10 [facility] Thin prep Papanicolaou smear with manual screeningOrdered By: Greg Philip on 09-06-2023 Thin prep Papanicolaou smear with manual screening 28 U/L 15-37 [facility] Thin prep Papanicolaou smear with manual screening 4 5-15 [facility] Urine blood detectionOrdered By: Greg Philip on 09-06-2023 RBC Ql (U) Negative Negative [facility] RBC Ql (U) 0 SEEN /hpf 0-5 [facility] Urine clarityOrdered By: Allyn Philip on 09-06-2023 Clarity (U) Clear Clear [facility] Urine color determinationOrd ered By: Greg Philip on 09-06-2023 Color (U) Yellow Yellow [facility] Urine glucose detectionOrder ed By: Greg Philip on 09-06-2023 Glucose Ql (U) 50 mg/dl Normal [facility] Urine leukocyte esterase det ection by dipstickOrdered By: Greg Philip on 09-06-2023 Leukocyte esterase Test strip Ql (U) Negative Negative [facility] Urine pHOrdered By: Greg sun on 09-06-2023 pH (U) 6.5 [pH] 5.0 - 8.0 [facility] Urine sediment bacteria coun t by microscopy (number/high power field)Ordered By: Greg Philip on 09-06-2023 Bacteria LM.HPF (Urine sed) [#/Area] 0 /[HPF] None Seen [facility] Urine specific gravity measu rementOrdered By: Greg Philip on 09-06-2023 Specific gravity (U) [Rel density] 1.020 1.002-1.030 [facility] Urobilinogen Auto test strip Ql (U)Ordered By: Greg Philip on 09-06-2023 Urobilinogen Ql (U) 1 mg/dl Normal [facility] Absolute lymphocyte countOrd ered By: Marc Carl on 08-22-2023 Lymphocytes Auto (Unsp spec) [#/Vol] 2.29 10*3/uL 0.83-4.51 [facility] Basophil percentageOrdered B y: Marc Carl on 08-22-2023 Basophil percentage 0 SEEN /hpf 0-5 [facility] Basophils/100 WBC (Bld) 0.6 % 0-1 [facility] Bilirubin [Mass/Vol] 0.50 mg/dL 0.20-1.00 [facility] Comment on above: For patients on eltr ombopag therapy, use of Dimension Ivor TBIL is not recommended. Chloride [Moles/Vol] 106 mmol/L 98-107 [facility] Eosinophils/100 WBC (Bld) 0.9 % 0-5 [facility] Glucose [Mass/Vol] 397 mg/dL 74-106 [facility] Comment on above: Glucose result great er than or equal to 200 mg/dLsuggests DIABETES MELLITUS per A.D.A. criteria. Neutrophils (Bld) [#/Vol] 4.8 10*3/uL 2.0-7.7 [facility] Neutrophils/100 WBC (Bld) 60.5 % 47-70 [facility] Potassium [Moles/Vol] 4.1 mmol/L 3.5-5.1 [facility] Protein [Mass/Vol] 6.6 g/dL 6.4-8.2 [facility] Sodium [Moles/Vol] 138 mmol/L 136-145 [facility] WBC (Bld) [#/Vol] 8.0 10*3/uL 4.4-11.0 [facility] Bilirubin Test strip Ql (U)O rdered By: Marc Carl on 08-22-2023 Bilirubin Ql (U) Negative Negative [facility] Blood erythrocytes count (nu mber/volume)Ordered By: Marc Carl on 08-22-2023 RBC (Bld) [#/Vol] 4.04 10*6/uL 4.2-5.4 [facility] Blood hemoglobin measurement (mass/volume)Ordered By: Marc Carl on 08-22-2023 Hemoglobin (Bld) [Mass/Vol] 11.6 g/dL 12.0-15.0 [facility] Blood lymphocytes/100 leukoc ytesOrdered By: Marc Carl on 08-22-2023 Lymphocytes/100 WBC (Bld) 28.7 % 19-41 [facility] Blood monocytes/100 leukocyt esOrdered By: Marc Carl on 08-22-2023 Monocytes/100 WBC (Bld) 7.9 % 0-10 [facility] Blood platelet mean volumeOr dered By: Marc Carl on 08-22-2023 Platelet mean volume (Bld) [Entitic vol] 12.0 fL 6.2-12.0 [facility] Determination of erythrocyte mean corpuscular volume (MCV)Ordered By: Marc Cral on 08-22-2023 MCV (RBC) [Entitic vol] 92.3 fL 81-99 [facility] Glucose Glucometer (dC) [M ass/Vol]Ordered By: Marc Carl on 08-22-2023 Glucose [Mass/Vol] 207 mg/dL 74-106 [facility] Comment on above: MANAGEMENT OF PATIEN T CARE PER NURSING PROTOCOL Hematocrit Auto (Bld) [Volum e fraction]Ordered By: Marc Carl on 08-22-2023 Hematocrit (Bld) [Volume fraction] 37.3 % 37-47 [facility] Ketones Test strip Ql (U)Ord ered By: Marc Carl on 08-22-2023 Ketones Ql (U) 5 mg/dl Negative [facility] Laboratory - Chemistry and C hemistry - challengeOrdered By: Marc Carl on 08-22-2023 ALP [Catalytic activity/Vol] 72 U/L 45-117 [facility] ALT [Catalytic activity/Vol] 87 U/L 13-56 [facility] CO2 [Moles/Vol] 27.0 mmol/L 21.0-32.0 [facility] Globulin (S) [Mass/Vol] 3.3 g/dL 2.2-4.2 [facility] Urea nitrogen/Creatinine [Mass ratio] 13.4 mg/mg 10-20 [facility] - Hematology and Cell countsOrdered By: Marc Carl on 08-22-2023 Erythrocyte distribution width (RBC) [Entitic vol] 45.2 fL 35.1-43.9 [facility] Erythrocyte distribution width (RBC) [Ratio] 13.4 % 11.6-14.6 [facility] Immature granulocytes/100 WBC (Bld) 1.400 % 0.0-0.9 [facility] Comment on above: IG% - Immature Granu locytes (promyelocytes, myelocytes and metamyelocytes) > 1% indicates that a LEFT SHIFT is Present. MCH (RBC) [Entitic mass] 28.7 pg 27.0-32.0 [facility] Nucleated RBC/100 WBC (Bld) [Ratio] 0 % 0-5 [facility] MCHC Auto (RBC) [Mass/Vol]Or dered By: Marc Carl on 08-22-2023 MCHC (RBC) [Mass/Vol] 31.1 g/dL 32-36 [facility] Mucus LM Ql (Urine sed)Order ed By: Marc Carl on 08-22-2023 Mucus Ql (Urine sed) 0 SEEN /hpf [facility] Nitrite Test strip Ql (U)Ord ered By: Marc Carl on 08-22-2023 Nitrite Ql (U) Negative Negative [facility] No Panel InformationOrdered By: Marc Carl on 08-22-2023 Estimated Creatinine Clearance Calc 96.39 ml/min [facility] Estimated GFR (MDRD) Amer 95 mL/min >60 [facility] Comment on above: GFR Calc Estimated GFR (MDRD) Non-Af Amer 79 mL/min >60 [facility] Comment on above: Non- GFR Calc Platelets bldOrdered By: Filipe Carl on 08-22-2023 Platelets (Bld) [#/Vol] 206 10*3/uL 150-450 [facility] Protein Test strip Ql (U)Ord ered By: Marc Carl on 08-22-2023 Protein Ql (U) Negative Negative [facility] Serum or plasma albumin milli urement (mass/volume)Ordered By: Marc Carl on 08-22-2023 Albumin [Mass/Vol] 3.3 g/dL 3.2-5.0 [facility] Serum or plasma albumin/glob ulin mass ratioOrdered By: Marc Carl on 08-22-2023 Albumin/Globulin [Mass ratio] 1.0 {ratio} 0.9-2.4 [facility] Serum or plasma calcium milli urement (mass/volume)Ordered By: Marc Carl on 08-22-2023 Calcium [Mass/Vol] 8.4 mg/dL 8.5-10.1 [facility] Serum or plasma creatinine m easurement (mass/volume)Ordered By: Marc Carl on 08-22-2023 Creatinine [Mass/Vol] 0.90 mg/dL 0.55-1.02 [facility] Comment on above: The validity of the calculated GFR & GFRAA in patients over 70 years has not been determined. Clinical correlation is essential. Serum or plasma urea nitroge n measurement (mass/volume)Ordered By: Marc aCrl on 08-22-2023 Urea nitrogen [Mass/Vol] 12 mg/dL 7-18 [facility] Squamous epithelial cells de tection in urine sediment by light microscopyOrdered By: Marc Carl on 08-22-2023 Epithelial cells.squamous LM Ql (Urine sed) 0-5 SEEN /hpf 5-10 [facility] Thin prep Papanicolaou smear with manual screeningOrdered By: Marc Carl on 08-22-2023 Thin prep Papanicolaou smear with manual screening 36 U/L 15-37 [facility] Thin prep Papanicolaou smear with manual screening 5 5-15 [facility] Urine blood detectionOrdered By: Marc Carl on 08-22-2023 RBC Ql (U) Negative Negative [facility] RBC Ql (U) 0 SEEN /hpf 0-5 [facility] Urine clarityOrdered By: Filipe Carl on 08-22-2023 Clarity (U) Clear Clear [facility] Urine color determinationOrd ered By: Marc Carl on 08-22-2023 Color (U) Yellow Yellow [facility] Urine glucose detectionOrder ed By: Marc Carl on 08-22-2023 Glucose Ql (U) 1000 mg/dl Normal [facility] Urine leukocyte esterase det ection by dipstickOrdered By: Marc Carl on 08-22-2023 Leukocyte esterase Test strip Ql (U) Negative Negative [facility] Urine pHOrdered By: Marc griffiths on 08-22-2023 pH (U) 8.0 [pH] 5.0 - 8.0 [facility] Urine sediment bacteria coun t by microscopy (number/high power field)Ordered By: Marc Carl on 08-22-2023 Bacteria LM.HPF (Urine sed) [#/Area] 0 /[HPF] None Seen [facility] Urine specific gravity measu rementOrdered By: Marc Carl on 08-22-2023 Specific gravity (U) [Rel density] 1.010 1.002-1.030 [facility] Urobilinogen Auto test strip Ql (U)Ordered By: Marc Carl on 08-22-2023 Urobilinogen Ql (U) Normal mg/dl Normal [facility] Basophil percentageOrdered B y: Dangelo Encarnacion on 08-10-2023 Chloride [Moles/Vol] 109 mmol/L 98-107 [facility] Glucose [Mass/Vol] 195 mg/dL 74-106 [facility] Comment on above: Fasting Glucose resu lt greater than or equal to 126 mg/dL suggests DIABETES MELLITUS per A.D.A. criteria. Potassium [Moles/Vol] 3.7 mmol/L 3.5-5.1 [facility] Sodium [Moles/Vol] 139 mmol/L 136-145 [facility] WBC (Bld) [#/Vol] 8.5 10*3/uL 4.4-11.0 [facility] Blood erythrocytes count (nu mber/volume)Ordered By: Dangelo Encarnacion on 08-10-2023 RBC (Bld) [#/Vol] 4.50 10*6/uL 4.2-5.4 [facility] Blood hemoglobin measurement (mass/volume)Ordered By: Dangelo Encarnacion on 08-10-2023 Hemoglobin (Bld) [Mass/Vol] 13.0 g/dL 12.0-15.0 [facility] Blood platelet mean volumeOr dered By: Dangelo Encarnacion on 08-10-2023 Platelet mean volume (Bld) [Entitic vol] 11.8 fL 6.2-12.0 [facility] Determination of erythrocyte mean corpuscular volume (MCV)Ordered By: Dangelo Encarnacion on 08-10-2023 MCV (RBC) [Entitic vol] 88.2 fL 81-99 [facility] Glucose Glucometer (BldC) [M ass/Vol]Ordered By: Dangelo Encarnacion on 08-10-2023 Glucose [Mass/Vol] 208 mg/dL 74-106 [facility] Comment on above: MANAGEMENT OF PATIEN T CARE PER NURSING PROTOCOL Hematocrit Auto (Bld) [Volum e fraction]Ordered By: Dangelo Encarncaion on 08-10-2023 Hematocrit (Bld) [Volume fraction] 39.7 % 37-47 [facility] - Chemistry and C hemistry - challengeOrdered By: Dangelo Encarnacion on 08-10-2023 CO2 [Moles/Vol] 20.0 mmol/L 21.0-32.0 [facility] Urea nitrogen/Creatinine [Mass ratio] 15.4 mg/mg 10-20 [facility] - Hematology and Cell countsOrdered By: Dangelo Encarnacion on 08-10-2023 Erythrocyte distribution width (RBC) [Entitic vol] 42.0 fL 35.1-43.9 [facility] Erythrocyte distribution width (RBC) [Ratio] 12.9 % 11.6-14.6 [facility] MCH (RBC) [Entitic mass] 28.9 pg 27.0-32.0 [facility] MCHC Auto (RBC) [Mass/Vol]Or dered By: Dangelo Encarnacion on 08-10-2023 MCHC (RBC) [Mass/Vol] 32.7 g/dL 32-36 [facility] No Panel InformationOrdered By: Dangelo Encarnacion on 08-10-2023 Estimated Creatinine Clearance Calc 149.57 ml/min [facility] Estimated GFR (MDRD) Amer 157 mL/min >60 [facility] Comment on above: GFR Calc Estimated GFR (MDRD) Non-Af Amer 129 mL/min >60 [facility] Comment on above: Non- GFR Calc Platelets bldOrdered By: Lauren mitch Alysha on 08-10-2023 Platelets (Bld) [#/Vol] 109 10*3/uL 150-450 [facility] Serum or plasma calcium milli urement (mass/volume)Ordered By: Dangelo Encarnacion on 08-10-2023 Calcium [Mass/Vol] 8.0 mg/dL 8.5-10.1 [facility] Serum or plasma creatinine m easurement (mass/volume)Ordered By: Dangelo Encarnacion on 08-10-2023 Creatinine [Mass/Vol] 0.58 mg/dL 0.55-1.02 [facility] Comment on above: The validity of the calculated GFR & GFRAA in patients over 70 years has not been determined. Clinical correlation is essential. Serum or plasma urea nitroge n measurement (mass/volume)Ordered By: Dangelo Encarnacion on 08-10-2023 Urea nitrogen [Mass/Vol] 9 mg/dL 7-18 [facility] Thin prep Papanicolaou smear with manual screeningOrdered By: Dangelo Encarnacion on 08-10-2023 Thin prep Papanicolaou smear with manual screening 10 5-15 [facility] Basophil percentageOrdered B y: Lul Nkechibing on 08-07-2023 Lactate [Moles/Vol] 2.2 mmol/L 0.4-2.0 [facility] Comment on above: Critical Result(s) C alled at: 06:54:28 08/07/2023 by: Reid Rogers. Colin Hopkins RN (ICU). Results read back by same. HCO3 (BldA) [Moles/Vol]Order ed By: Vamsi Lewis on 08-07-2023 HCO3 (Bld) [Moles/Vol] 12 mmol/L - [facility] Laboratory - Chemistry and C hemistry - challengeOrdered By: Vamsi Lewis on 08-07-2023 CO2 [Moles/Vol] 13 mmol/L [facility] Magnesium [Mass/Vol] 1.8 mg/dL 1.6-2.6 [facility] Comment on above: Slight Hemolysis, Re sult may be falsely increased. No Panel InformationOrdered By: Vamsi Lewis on 08-07-2023 Bed Mix Venous Bld PCO2 at Pat Temp 28.0 mmHg 41-51 [facility] Blood Gas Oxygen Percent 21.0 [facility] Blood Gas Sample Site Not entered [facility] Blood Gas Specimen Type ISABELLE [facility] Oxygen Delivery Device Not entered [facility] Venous Blood Base Excess -16 mmol/L -1.0-3.5 [facility] PO2 venousOrdered By: Vamsi Lewis on 08-07-2023 Oxygen (BldV) [Partial pressure] 52 mm[Hg] 25-40 [facility] Respiratory pathogens detect ion panel by molecular detection methodOrdered By: Vamsi Lewis on 08-07-2023 Respiratory pathogens DNA and RNA panel DANIEL+probe (Resp) [facility] Respiratory pathogens DNA and RNA panel DANIEL+probe (Resp) [facility] Serum or plasma acetone milli urement (mass/volume)Ordered By: Vamsi Lewis on 08-07-2023 Acetone [Mass/Vol] MODERATE NEG [facility] Vital signsOrdered By: Vamsi Lewis on 08-07-2023 Oxygen saturation in Blood 81 % 50-70 [facility] Whole blood hemoglobin A1c/t otal hemoglobin ratio (mass fraction)Ordered By: Vamsi Lewis on 08-07-2023 HbA1c (Bld) [Mass fraction] 7.0 % 3.8-5.6 [facility] Comment on above: Normal < 5.7 % Predi abetic 5.7 - 6.4 % Diabetic >or= 6.5 % Please note range changes. pH measurementOrdered By: Miller Lewis on 08-07-2023 pH (Unsp spec) 7.24 [pH] 7.32-7.42 [facility] Absolute lymphocyte countOrd ered By: Lul Singh on 08-06-2023 Lymphocytes Auto (Unsp spec) [#/Vol] 0.42 10*3/uL 0.83-4.51 [facility] Absolute lymphocyte countOrd ered By: Juan Marquez on 08-06-2023 Lymphocytes Auto (Unsp spec) [#/Vol] 1.08 10*3/uL 0.83-4.51 [facility] Basophil percentageOrdered B y: Lul Singh on 08-06-2023 Basophils/100 WBC (Bld) 0.5 % 0-1 [facility] Chloride [Moles/Vol] 101 mmol/L 98-107 [facility] Eosinophils/100 WBC (Bld) 0.0 % 0-5 [facility] Glucose [Mass/Vol] 548 mg/dL 74-106 [facility] Comment on above: Critical Result(s) C alled at: 23:51:02 08/06/2023 by: Jay Hill. to Matthew (RN) (ED) Results read back by same.Glucose result greater than or equal to 200 mg/dLsuggests DIABETES MELLITUS per A.D.A. criteria. Lactate [Moles/Vol] 4.4 mmol/L 0.4-2.0 [facility] Comment on above: Critical Result(s) C alled at: 23:51:02 08/06/2023 by: Jay Hill. to Matthew (RN) (ED) Results read back by same. Neutrophils (Bld) [#/Vol] 18.8 10*3/uL 2.0-7.7 [facility] Neutrophils/100 WBC (Bld) 92.7 % 47-70 [facility] Potassium [Moles/Vol] 4.8 mmol/L 3.5-5.1 [facility] Sodium [Moles/Vol] 132 mmol/L 136-145 [facility] WBC (Bld) [#/Vol] 20.3 10*3/uL 4.4-11.0 [facility] Basophil percentage 0 SEEN /hpf 0-5 [facility] Basophil percentageOrdered B y: Juan Marquez on 08-06-2023 Basophils/100 WBC (Bld) 0.2 % 0-1 [facility] Bilirubin [Mass/Vol] 0.70 mg/dL 0.20-1.00 [facility] Comment on above: For patients on eltr ombopag therapy, use of Dimension Ivor TBIL is not recommended. Chloride [Moles/Vol] 108 mmol/L 98-107 [facility] Eosinophils/100 WBC (Bld) 0.1 % 0-5 [facility] Glucose [Mass/Vol] 69 mg/dL 74-106 [facility] Neutrophils (Bld) [#/Vol] 19.2 10*3/uL 2.0-7.7 [facility] Neutrophils/100 WBC (Bld) 87.7 % 47-70 [facility] Potassium [Moles/Vol] 3.3 mmol/L 3.5-5.1 [facility] Protein [Mass/Vol] 7.5 g/dL 6.4-8.2 [facility] Sodium [Moles/Vol] 139 mmol/L 136-145 [facility] WBC (Bld) [#/Vol] 21.9 10*3/uL 4.4-11.0 [facility] Beta hCG serum qualOrdered B y: Juan Marquez on 08-06-2023 Beta HCG ( test) Ql Negative [facility] Bilirubin Test strip Ql (U)O rdered By: Lul Singh on 08-06-2023 Bilirubin Ql (U) Negative Negative [facility] Blood erythrocytes count (nu mber/volume)Ordered By: Lul Singh on 08-06-2023 RBC (Bld) [#/Vol] 4.35 10*6/uL 4.2-5.4 [facility] Blood erythrocytes count (nu mber/volume)Ordered By: Juan Marquez on 08-06-2023 RBC (Bld) [#/Vol] 5.03 10*6/uL 4.2-5.4 [facility] Blood hemoglobin measurement (mass/volume)Ordered By: Lul Singh on 08-06-2023 Hemoglobin (Bld) [Mass/Vol] 12.6 g/dL 12.0-15.0 [facility] Blood hemoglobin measurement (mass/volume)Ordered By: Juan Marquez on 08-06-2023 Hemoglobin (Bld) [Mass/Vol] 14.7 g/dL 12.0-15.0 [facility] Blood lymphocytes/100 leukoc ytesOrdered By: Lul Singh on 08-06-2023 Lymphocytes/100 WBC (Bld) 2.1 % 19-41 [facility] Blood lymphocytes/100 leukoc ytesOrdered By: Juan Marquez on 08-06-2023 Lymphocytes/100 WBC (Bld) 4.9 % 19-41 [facility] Blood manual differential co mment interpretation (narrative result)Ordered By: Lul Singh on 08-06-2023 Manual differential comment Faraz (Bld) [Interp] SCANNED [facility] Comment on above: LYMPHOPENIA PRESENT Blood monocytes/100 leukocyt esOrdered By: Lul Singh on 08-06-2023 Monocytes/100 WBC (Bld) 2.0 % 0-10 [facility] Blood monocytes/100 leukocyt esOrdered By: Juan Marquez on 08-06-2023 Monocytes/100 WBC (Bld) 5.6 % 0-10 [facility] Blood platelet mean volumeOr dered By: Lul Singh on 08-06-2023 Platelet mean volume (Bld) [Entitic vol] 13.8 fL 6.2-12.0 [facility] Blood platelet mean volumeOr dered By: Juan Marquez on 08-06-2023 Platelet mean volume (Bld) [Entitic vol] 12.1 fL 6.2-12.0 [facility] Determination of erythrocyte mean corpuscular volume (MCV)Ordered By: Lul Singh on 08-06-2023 MCV (RBC) [Entitic vol] 93.1 fL 81-99 [facility] Determination of erythrocyte mean corpuscular volume (MCV)Ordered By: Juan Marquez on 08-06-2023 MCV (RBC) [Entitic vol] 88.9 fL 81-99 [facility] Glucose Glucometer (dC) [M ass/Vol]Ordered By: Juan Marquez on 08-06-2023 Glucose [Mass/Vol] 397 mg/dL 74-106 [facility] Comment on above: MANAGEMENT OF PATIEN T CARE PER NURSING PROTOCOL HCO3 (BldA) [Moles/Vol]Order ed By: Lul Singh on 08-06-2023 HCO3 (Bld) [Moles/Vol] 12 mmol/L 22-26 [facility] Hematocrit Auto (Bld) [Volum e fraction]Ordered By: Lul Singh on 08-06-2023 Hematocrit (Bld) [Volume fraction] 40.5 % 37-47 [facility] Hematocrit Auto (Bld) [Volum e fraction]Ordered By: Juan Marquez on 08-06-2023 Hematocrit (Bld) [Volume fraction] 44.7 % 37-47 [facility] Ketones Test strip Ql (U)Ord ered By: Lul Singh on 08-06-2023 Ketones Ql (U) 150 mg/dl Negative [facility] Comment on above: CRITICAL VALUE *HCRI TICAL VALUE VERIFIED. CALLED TO COMBVH85/11/23 00[address] [place].RESULTS READ BACK BY SAME. Laboratory - Chemistry and C hemistry - challengeOrdered By: Lul Singh on 08-06-2023 CO2 [Moles/Vol] 13 mmol/L 23-33 [facility] CO2 [Moles/Vol] 14.0 mmol/L 21.0-32.0 [facility] Magnesium [Mass/Vol] 2.0 mg/dL 1.6-2.6 [facility] Urea nitrogen/Creatinine [Mass ratio] 16.1 mg/mg 10-20 [facility] Laboratory - Chemistry and C hemistry - challengeOrdered By: Juan Marquez on 08-06-2023 ALP [Catalytic activity/Vol] 94 U/L 45-117 [facility] ALT [Catalytic activity/Vol] 32 U/L 13-56 [facility] CO2 [Moles/Vol] 26.0 mmol/L 21.0-32.0 [facility] Globulin (S) [Mass/Vol] 3.6 g/dL 2.2-4.2 [facility] Lipase [Catalytic activity/Vol] 16 U/L 13-75 [facility] Comment on above: Please note:LIPASE r evised reference range effective 22. New Lipase methodology. Expected to produce lower values than the previous assay method. NEW Reference Range: 13 - 75 U/L Urea nitrogen/Creatinine [Mass ratio] 20.0 mg/mg 10 [facility] Laboratory - Hematology and Cell countsOrdered By: Lul Singh on 08-06-2023 Erythrocyte distribution width (RBC) [Entitic vol] 45.1 fL 35.1-43.9 [facility] Erythrocyte distribution width (RBC) [Ratio] 13.2 % 11.6-14.6 [facility] Immature granulocytes/100 WBC (Bld) 2.700 % 0.0-0.9 [facility] Comment on above: IG% - Immature Granu locytes (promyelocytes, myelocytes and metamyelocytes) > 1% indicates that a LEFT SHIFT is Present. MCH (RBC) [Entitic mass] 29.0 pg 27.0-32.0 [facility] Nucleated RBC/100 WBC (Bld) [Ratio] 0 % 0-5 [facility] Laboratory - Hematology and Cell countsOrdered By: Juan Marquez on 08-06-2023 Erythrocyte distribution width (RBC) [Entitic vol] 42.0 fL 35.1-43.9 [facility] Erythrocyte distribution width (RBC) [Ratio] 12.9 % 11.6-14.6 [facility] Immature granulocytes/100 WBC (Bld) 1.500 % 0.0-0.9 [facility] Comment on above: IG% - Immature Granu locytes (promyelocytes, myelocytes and metamyelocytes) > 1% indicates that a LEFT SHIFT is Present. MCH (RBC) [Entitic mass] 29.2 pg 27.0-32.0 [facility] Nucleated RBC/100 WBC (Bld) [Ratio] 0 % 0- [facility] MCHC Auto (RBC) [Mass/Vol]Or dered By: Lul Singh on 08-06-2023 MCHC (RBC) [Mass/Vol] 31.1 g/dL [facility] Comment on above: Delta: 32.9 on 08/06 MCHC Auto (RBC) [Mass/Vol]Or dered By: Juan Marquez on 08-06-2023 MCHC (RBC) [Mass/Vol] 32.9 g/dL [facility] Mucus LM Ql (Urine sed)Order ed By: Lul Singh on 08-06-2023 Mucus Ql (Urine sed) 0 SEEN /hpf [facility] Nitrite Test strip Ql (U)Ord ered By: Lul Singh on 08-06-2023 Nitrite Ql (U) Negative Negative [facility] No Panel InformationOrdered By: Lul Singh on 08-06-2023 Bed Mix Venous Bld PCO2 at Pat Temp 22.9 mmHg 41-51 [facility] Blood Gas Sample Site Not entered [facility] Blood Gas Specimen Type ISABELLE [facility] Oxygen Delivery Device Room Air [facility] Venous Blood Base Excess -14 mmol/L -1.0-3.5 [facility] Estimated Creatinine Clearance Calc 73.52 ml/min [facility] Estimated GFR (MDRD) Amer 70 mL/min >60 [facility] Comment on above: GFR Calc Estimated GFR (MDRD) Non-Af Amer 58 mL/min >60 [facility] Comment on above: Non- GFR Calc No Panel InformationOrdered By: Juan Marquez on 08-06-2023 Estimated Creatinine Clearance Calc 108.44 ml/min [facility] Estimated GFR (MDRD) Amer 109 mL/min >60 [facility] Comment on above: GFR Calc Estimated GFR (MDRD) Non-Af Amer 90 mL/min >60 [facility] Comment on above: Non- GFR Calc PO2 venousOrdered By: Lul Singh on 08-06-2023 Oxygen (BldV) [Partial pressure] 58 mm[Hg] 25-40 [facility] Platelets bldOrdered By: Lane Singh on 08-06-2023 Platelets (Bld) [#/Vol] 140 10*3/uL 150-450 [facility] Platelets bldOrdered By: Lauren Marquez on 08-06-2023 Platelets (Bld) [#/Vol] 199 10*3/uL 150-450 [facility] Protein Test strip Ql (U)Ord ered By: Lul Singh on 08-06-2023 Protein Ql (U) Negative Negative [facility] Serum or plasma acetone milli urement (mass/volume)Ordered By: Lul Singh on 08-06-2023 Acetone [Mass/Vol] SMALL NEG [facility] Serum or plasma albumin milli urement (mass/volume)Ordered By: Juan Marquez on 08-06-2023 Albumin [Mass/Vol] 3.9 g/dL 3.2-5.0 [facility] Serum or plasma albumin/glob ulin mass ratioOrdered By: Juan Marquez on 08-06-2023 Albumin/Globulin [Mass ratio] 1.1 {ratio} 0.9-2.4 [facility] Serum or plasma calcium milli urement (mass/volume)Ordered By: Lul Singh on 08-06-2023 Calcium [Mass/Vol] 9.1 mg/dL 8.5-10.1 [facility] Serum or plasma calcium milli urement (mass/volume)Ordered By: Juan Marquez on 08-06-2023 Calcium [Mass/Vol] 9.6 mg/dL 8.5-10.1 [facility] Serum or plasma creatinine m easurement (mass/volume)Ordered By: Lul Singh on 08-06-2023 Creatinine [Mass/Vol] 1.18 mg/dL 0.55-1.02 [facility] Comment on above: The validity of the calculated GFR & GFRAA in patients over 70 years has not been determined. Clinical correlation is essential. Serum or plasma creatinine m easurement (mass/volume)Ordered By: Juan Marquez on 08-06-2023 Creatinine [Mass/Vol] 0.80 mg/dL 0.55-1.02 [facility] Comment on above: The validity of the calculated GFR & GFRAA in patients over 70 years has not been determined. Clinical correlation is essential. Serum or plasma urea nitroge n measurement (mass/volume)Ordered By: Lul Singh on 08-06-2023 Urea nitrogen [Mass/Vol] 19 mg/dL 03-14 [facility] Serum or plasma urea nitroge n measurement (mass/volume)Ordered By: Juan Marquez on 08-06-2023 Urea nitrogen [Mass/Vol] 16 mg/dL 03-14 [facility] Squamous epithelial cells de tection in urine sediment by light microscopyOrdered By: Lul Singh on 08-06-2023 Epithelial cells.squamous LM Ql (Urine sed) 0-5 SEEN /hpf -10 [facility] Thin prep Papanicolaou smear with manual screeningOrdered By: Lul Singh on 08-06-2023 Thin prep Papanicolaou smear with manual screening 17 5-15 [facility] Thin prep Papanicolaou smear with manual screeningOrdered By: Juan Marquez on 08-06-2023 Thin prep Papanicolaou smear with manual screening 15 U/L 15-37 [facility] Thin prep Papanicolaou smear with manual screening 5 5-15 [facility] Urine blood detectionOrdered By: Lul Singh on 08-06-2023 RBC Ql (U) 10 /ul Negative [facility] RBC Ql (U) 0 SEEN /hpf 0-5 [facility] Urine clarityOrdered By: Lane Singh on 08-06-2023 Clarity (U) Clear Clear [facility] Urine color determinationOrd ered By: Lul Singh on 08-06-2023 Color (U) Yellow Yellow [facility] Urine glucose detectionOrder ed By: Lul Singh on 08-06-2023 Glucose Ql (U) 1000 mg/dl Normal [facility] Urine leukocyte esterase det ection by dipstickOrdered By: Lul Singh on 08-06-2023 Leukocyte esterase Test strip Ql (U) Negative Negative [facility] Urine pHOrdered By: Lul fontaine on 08-06-2023 pH (U) 5.0 [pH] 5.0 - 8.0 [facility] Urine sediment bacteria coun t by microscopy (number/high power field)Ordered By: Lul Singh on 08-06-2023 Bacteria LM.HPF (Urine sed) [#/Area] 0 /[HPF] None Seen [facility] Urine specific gravity measu rementOrdered By: Lul Singh on 08-06-2023 Specific gravity (U) [Rel density] 1.015 1.002-1.030 [facility] Urobilinogen Auto test strip Ql (U)Ordered By: Lul Singh on 08-06-2023 Urobilinogen Ql (U) Normal mg/dl Normal [facility] Vital signsOrdered By: Partha Singh on 08-06-2023 Oxygen saturation in Blood 89 % 50-70 [facility] pH measurementOrdered By: Yarelis Singh on 08-06-2023 pH (Unsp spec) 7.34 [pH] 7.32-7.42 [facility] CBC panel Auto (Bld)on 07-12 Erythrocyte distribution width (RBC) [Ratio] 13.3 % Normal 11.5-15.0 [facility] Comment on above: Order Comment: Speci men Type: BLOOD SPECIMEN Ordering Facility: [facility] Address: [address] [place] [id number] Performed By: #### 3 1201-7, 5195-3, 98461-5, SYPH #### [facility] CLIA [id number] [address] [place], [place] [id number] [place] Hematocrit (Bld) [Volume fraction] 44.2 % Normal 36.0-46.0 [facility] Comment on above: Order Comment: Speci men Type: BLOOD SPECIMEN Ordering Facility: [facility] Address: [address] Performed By: #### 3 1201-7, 5195-3, 34037-4, SYPH #### [facility] CLIA [id number] [address] [place] [address] [place] Hemoglobin (Bld) [Mass/Vol] 14.8 g/dL Normal 11.5-15.5 [facility] Comment on above: Order Comment: Speci men Type: BLOOD SPECIMEN Ordering Facility: [facility] Address: [address] Performed By: #### 3 1201-7, 5195-3, 82511-1, SYPH #### [facility] CLIA [id number] [address] [place] [address] [place] MCH (RBC) [Entitic mass] 29.4 pg Normal 26.0-34.0 [facility] Comment on above: Order Comment: Speci men Type: BLOOD SPECIMEN Ordering Facility: [facility] Address: [address] [place] [address] Performed By: #### 3 1201-7, 5195-3, 38180-5, SYPH #### [facility] CLIA [id number] [address] [place] [address] [place] MCHC (RBC) [Mass/Vol] 33.5 g/dL Normal 30.5-36.0 [facility] Comment on above: Order Comment: Speci men Type: BLOOD SPECIMEN Ordering Facility: [facility] Address: [address] Performed By: #### 3 1201-7, 5195-3, 67132-3, SYPH #### [facility] CLIA [id number] [address] [place], [place] [id number] [place] MCV (RBC) [Entitic vol] 87.7 fL Normal 80.0-100.0 [facility] Comment on above: Order Comment: Speci men Type: BLOOD SPECIMEN Ordering Facility: [facility] Address: [address] [place] [address] Performed By: #### 3 1201-7, 5194-3, 66625-3, SYPH #### [facility] CLIA [id number] [address] [place] [address] [place] Nucleated RBC (Bld) [#/Vol] 10*3/uL Normal <0.01 [facility] Comment on above: Order Comment: Speci men Type: BLOOD SPECIMEN Ordering Facility: [facility] Address: [address] [place] [address] Performed By: #### 3 1201-7, 5194-3, , SYPH #### [facility] CLIA [id number] [address] [place] [address] [place] Platelet mean volume (Bld) [Entitic vol] 13.3 fL High 9.0-12.7 [facility] Comment on above: Order Comment: Speci men Type: BLOOD SPECIMEN Ordering Facility: [facility] Address: [address] [place] [address] Performed By: #### 3 1201-7, 3, , SYPH #### [facility] CLIA [id number] [address] [place] [address] [place] Platelets (Bld) [#/Vol] 111 10*3/uL Low 150-400 [facility] Comment on above: Order Comment: Speci men Type: BLOOD SPECIMEN Ordering Facility: [facility] Address: [address] [place] [address] Result Comment: No c lot detected. Performed By: #### 3 1201-7, 5194-3, 92211-5, SYPH #### [facility] CLIA [id number] [address] [place], [place] [address] [place] RBC (Bld) [#/Vol] 5.04 10*6/uL Normal 3.90-5.20 [facility] Comment on above: Order Comment: Speci men Type: BLOOD SPECIMEN Ordering Facility: [facility] Address: [address] [place] [address] Performed By: #### 3 1201-7, 5195-3, 47928-3, SYPH #### [facility] CLIA [id number] [address] [place], [place] [address] [place] WBC (Bld) [#/Vol] 11.34 10*3/uL High 3.70-11.00 [facility] Comment on above: Order Comment: Speci men Type: BLOOD SPECIMEN Ordering Facility: [facility] Address: [address] [place], [place] [id number] Performed By: #### 3 1201-7, 5195-3, 71189-2, SYPH #### [facility] CLIA [id number] [address] [place], [place] [address] [place] CTA ABD/PEL W IVCONon 2022 CTA ABD/PEL W IVCON * * *Final Report* * * DATE OF EXAM: Jul 12 2023 10:08AM [facility] 0311 - CTA ABD/PEL W IVCON [...] aorta without acute aortic pathology. Dictated by [facility] Counselor: Dutch Aguilar DO I, Jose M Llerena-Riquelme, MD, have supervised the procedure and/or image review, and agree with the above interpretation and report. Director Of Preclinical Research: CONCHITA Transcribe Date/Time: Jul 12 2023 10:10A Dictated by : DUTCH AGUILAR DO This examination was interpreted and the report reviewed and electronically signed by: VALDO ISLAS MD on Jul 12 2023 2:59PM EST [id number] Normal [facility] CTA CHEST (GATED) WO/W IVCON on 07-12-2023 CTA CHEST (GATED) WO/W IVCON * * *Final Report* * * DATE OF EXAM: Jul 12 2023 10:08AM [facility] 0126 - CTA CHEST (GATED) WO/W [...] aorta without acute aortic pathology. Dictated by [facility] Counselor: Dutch Aguilar DO I, Valdo Islas MD, have supervised the procedure and/or image review, and agree with the above interpretation and report. Director Of Preclinical Research: CONCHITA Transcribe Date/Time: Jul 12 2023 10:10A Dictated by : DUTCH AGUILAR DO This examination was interpreted and the report reviewed and electronically signed by: VALDO ISLAS MD on Jul 12 2023 2:59PM EST [id number] Normal [facility] Comprehensive metabolic 2000 panelon 07-12-2023 Albumin [Mass/Vol] 3.6 g/dL Normal 3.2-5.0 [facility] Comment on above: Order Comment: Speci men Type: BLOOD SPECIMENOrdering Facility: [facility] Address: [address] [place] [address] Performed By: #### 2 4323-8, ####[facility]IA [id number] [place] [address] [place] ALP [Catalytic activity/Vol] 80 U/L Normal 45-117 [facility] Comment on above: Order Comment: Speci men Type: BLOOD SPECIMENOrdering Facility: [facility] Address: [address] [place] [address] Performed By: #### 2 4323-8, ####[facility]ORYCLIA [id number] [place] [id number] [place] ALT [Catalytic activity/Vol] 74 U/L High 13-61 [facility] Comment on above: Order Comment: Speci men Type: BLOOD SPECIMENOrdering Facility: [facility] Address: [address] [place] [address] Result Comment: Resu lts may be falsely depressed after the administration of Sulfasalazine and/or Sulfapyridine. Performed By: #### 2 4323-8, ####[facility]ORY[facility]IA [id number] [place] [id number] [place] Anion gap [Moles/Vol] 9 mmol/L Normal 5-16 [facility] Comment on above: Order Comment: Belindai jeb Type: BLOOD SPECIMENOrdering Facility: [facility] Address: [address] [place] [address] Performed By: #### 2 4323-8, ####[facility]ORY[facility]IA [id number] [address] [place] AST [Catalytic activity/Vol] 44 U/L High 8-34 [facility] Comment on above: Order Comment: Speci men Type: BLOOD SPECIMENOrdering Facility: [facility] Address: [address] [place] [address] Result Comment: Resu lts may be falsely depressed after the administration of Sulfasalazine and/or Sulfapyridine. Performed By: #### 2 4323-8, ####[facility]ORY[facility]IA [id number] [place] [id number] [place] Bilirubin [Mass/Vol] 0.4 mg/dL Normal 0.2-1.0 [facility] Comment on above: Order Comment: Speci men Type: BLOOD SPECIMENOrdering Facility: [facility] Address: [address] [place] [address] Performed By: #### 2 4323-8, ####[facility]ORY[facility]IA [id number] [place] [id number] [place] Calcium [Mass/Vol] 9.2 mg/dL Normal 8.5-10.5 [facility] Comment on above: Order Comment: Speci men Type: BLOOD SPECIMENOrdering Facility: [facility] Address: [address] [place] [address] Performed By: #### 2 4323-8, ####[facility]ORY[facility] [id number] [place] [id number] [place] Chloride [Moles/Vol] 104 mmol/L Normal 98-107 [facility] Comment on above: Order Comment: Speci men Type: BLOOD SPECIMENOrdering Facility: [facility] Address: [address] [place] [address] Performed By: #### 2 4328, ####[facility]ORYCLIA [id number] [place] [address] [place] CO2 [Moles/Vol] 26 mmol/L Normal 21-32 [facility] Comment on above: Order Comment: Speci men Type: BLOOD SPECIMENOrdering Facility: [facility] Address: [address] [place] [address] Performed By: #### 2 4323-8, ####[facility]ORYCLIA [id number] [place] [address] [place] Creatinine [Mass/Vol] 0.63 mg/dL Normal 0.51-0.95 [facility] Comment on above: Order Comment: Speci men Type: BLOOD SPECIMENOrdering Facility: [facility] Address: [address] [place] [address] Result Comment: Cleopatra ents receiving either N-Acetylcysteine (NAC) or Metamizole prior to venipuncture, may have falsely depressed results. Performed By: #### 2 4323-8, ####[facility]ORYCLIA [id number] [place] [id number] [place] Creatinine and Glomerular filtration rate.predicted panel (S/P/Bld) 124 mL/min/1.73m??? Normal >=60 [facility] Comment on above: Order Comment: Jon russ Type: BLOOD SPECIMENOrdering Facility: [facility] Address: [address] [place] [address] Result Comment: Janett mated Glomerular Filtration Rate [...] actual GFR. Performed By: #### 2 4323-8, ####[facility]ORYCLIA [id number] [place] [id number] [place] Glucose [Mass/Vol] 313 mg/dL High 70-100 [facility] Comment on above: Order Comment: Jon russ Type: BLOOD SPECIMENOrdering Facility: [facility] Address: [address] [place] [address] Result Comment: The [place] [employer] (ADA) provides guidance for cutoff [...] Standards of Medical Care in Diabetes 2016, [place] [employer]. Diabetes Care. 2016.39(Suppl 1). Results may be falsely elevated after the administration of Sulfapyridine. Results may be falsely depressed after the administration of Sulfasalazine. Performed By: #### 2 4323-8, 77076-0 ####[facility]ORYCLIA [id number] [place] [id number] [place] Potassium [Moles/Vol] 4.0 mmol/L Normal 3.5-5.1 [facility] Comment on above: Order Comment: Jon russ Type: BLOOD SPECIMENOrdering Facility: [facility] Address: [address] [place] [id number] Performed By: #### 2 4323-8, ####[facility]ORYCLIA [id number] [place] [id number] [place] Protein [Mass/Vol] 6.3 g/dL Normal 6.0-8.5 [facility] Comment on above: Order Comment: Speci men Type: BLOOD SPECIMENOrdering Facility: [facility] Address: [address] [facility] [place] [address] Performed By: #### 2 4323-8, ####[facility]ORYCLIA [id number] [place] [id number] [place] Sodium [Moles/Vol] 139 mmol/L Normal 136-145 [facility] Comment on above: Order Comment: Speci men Type: BLOOD SPECIMENOrdering Facility: [facility] Address: [address] [facility] [facility] [place] [address] Performed By: #### 2 4323-8, ####[facility]ORYCLIA [id number] [place] [id number] [place] Urea nitrogen [Mass/Vol] 16 mg/dL Normal 7-26 [facility] Comment on above: Order Comment: Speci men Type: BLOOD SPECIMENOrdering Facility: [facility] Address: [address] [place] [id number] Performed By: #### 2 4323-8, ####[facility]ORYCLIA [id number] [place] [id number] [place] ECG COMPLETEon 07-12-2023 ECG COMPLETE Ventricular Rate : 9 6 BPM Atrial Rate : 96 BPM P-R Interval : 132 ms QRS Duration : 78 ms Q-T Interval : 370 ms QTC Calculation(Bazett) : 468 ms Calculated P [place] : 49 degrees Calculated R [place] : 95 degrees Calculated T [place] : 68 degrees Normal sinus rhythm with sinus arrhythmia Normal ECG When compared with ECG of 31-JAN-2023 19:42, Nonspecific T wave abnormality no longer evident in Inferior leads Nonspecific T wave abnormality, improved in Anterolateral leads Confirmed by ANASTASIA CHENG MD ([id number]) on 07/13/2023 7:59:29 PM NAME : KATHLEEN VILLA PID : [id number] : 1995 Gender : Female Race : ORD : [id number] Procedure Date : Jul 12 2023 03:45:28 Edit Date : Jul 13 2023 19:59:34 Diagnosis: Normal sinus rhythm with sinus arrhythmia Normal ECG When compared with ECG of 31-JAN-2023 19:42, Nonspecific T wave abnormality no longer evident in Inferior leads Nonspecific T wave abnormality, improved in Anterolateral leads Confirmed by ANASTASIA CHENG MD ([id number]) on 07/13/2023 7:59:29 PM Test Reason : STAT Location : 0 : ED A Overread By : ANASTASIA CHENG MD Edited By : ANASTASIA CHENG MD Referred By : , Acquired by : [facility], [facility] ED NOTEon 07-12-2023 ED NOTE HNO ID: [id number] Author: Vinayak Arevalo RN Service: ? Author Type: Registered Nurse Type: ED Notes Filed: 07/12/2023 10:15 AM Note Text: Pt c/o CP after CT. Dr Cortes notified [facility] ED NOTE HNO ID: [id number] Author: Jhoana Hope RN Service: ? Author Type: Registered Nurse Type: ED Notes Filed: 07/12/2023 6:05 AM Note Text: Failed IV/ Blood draw attempts x 2 by multiple staff members. Pt states she has a port and would like it accessed. [facility] ED PROV NOTEon 07-12-2023 ED PROV NOTE HNO ID: [id number] Author: Zohreh Cortes MD Service: ? Author [...] and time. (more content not included)... Normal [facility] HIGH SENSITIVITY TROPONIN Io n 07-12-2023 Tropinin I.cardiac panel High sensitivity method <2.5 Normal 0.0-34.0 [facility] Comment on above: Order Comment: Speci men Type: BLOOD SPECIMEN Ordering Facility: [facility] Address: [address] [place] [address] Result Comment: This assay uses different antibodies than our current assay, and assays, even by the same compressed gas plant worker may recognize different regions of the antibody and cannot be used interchangeably. Expect results of this assay to run higher than the previous assay. Performed By: #### 3 1201-7, 5195-3, 03826-7, SYPH #### [facility] CLIA [id number] [address] [place] [address] [place] Tropinin I.cardiac panel High sensitivity method 3.3 pg/mL Normal 0.0-34.0 [facility] Comment on above: Order Comment: Speci men Type: BLOOD SPECIMEN Ordering Facility: [facility] Address: [address] [address] Result Comment: This assay uses different antibodies than our current assay, and assays, even by the same compressed gas plant worker may recognize different regions of the antibody and cannot be used interchangeably. Expect results of this assay to run higher than the previous assay. Performed By: #### 3 1201-7, 5195-3, 71897-6, SYPH #### [facility] CLIA [id number] [address] [place] [address] [place] Lipase SerPl-cCncon 07-12-20 23 Lipase [Catalytic activity/Vol] 23 U/L Normal 12-60 [facility] Comment on above: Order Comment: Speci men Type: BLOOD SPECIMENOrdering Facility: [facility] Address: [address] [place] [address] Performed By: #### 3 040-3 ####[facility] [id number] [place] [address] [place] MORPH WAM REFLEXon 3 Platelets Estimate (Bld) [#/Vol] Decreased Normal [facility] Comment on above: Order Comment: Speci men Type: BLOOD SPECIMEN Ordering Facility: [facility] Address: [address] [address] Performed By: #### 3 1201-7, 5195-3, 96329-8, SYPH #### [facility] CLIA [id number] [address] [place] [address] [place]PH Reviewed: unremarkable Normal [facility] Comment on above: Order Comment: Speci men Type: BLOOD SPECIMEN Ordering Facility: [facility] Address: [address] [place] [address] Performed By: #### 3 1201-7, 5195-3, 19681-7, SYPH #### [facility] CLIA [id number] [address] [place] [address] Magnesium SerPl-mCncon 07-12 Magnesium [Mass/Vol] 1.8 mg/dL Normal 1.6-2.6 [facility] Comment on above: Order Comment: Speci men Type: BLOOD SPECIMEN Ordering Facility: [facility] Address: [address] [place], [place] [address] Performed By: #### 3 1201-7, 5195-3, 22790-6, SYPH #### [facility] CLIA [id number] [address] [place] [address] XR CHEST 2V FRONTAL/LATon XR CHEST 2V [...] significant acute radiographic abnormality of the chest. Director Of Preclinical Research: [facility] Transcribe Date/Time: Jul 12 2023 4:44A Dictated by : LETICIA HUTCHINS MD This examination was interpreted and the report reviewed and electronically signed by: LETICIA HUTCHINS MD on Jul 12 2023 4:45AM EST [id number] [facility] Absolute lymphocyte countOrd ered By: Siddharth Herrera on 06-26-2023 Lymphocytes Auto (Unsp spec) [#/Vol] 0.96 10*3/uL 0.83-4.51 [facility] Basophil percentageOrdered B y: Siddharth Herrera on 06-26-2023 Basophils/100 WBC (Bld) 0.1 % 0-1 [facility] Bilirubin [Mass/Vol] 0.90 mg/dL 0.20-1.00 [facility] Comment on above: For patients on eltr ombopag therapy, use of Dimension Ivor TBIL is not recommended. Chloride [Moles/Vol] 104 mmol/L 98-107 [facility] Eosinophils/100 WBC (Bld) 0.0 % 0-5 [facility] Glucose [Mass/Vol] 254 mg/dL 74-106 [facility] Comment on above: Glucose result great er than or equal to 200 mg/dLsuggests DIABETES MELLITUS per A.D.A. criteria. Neutrophils (Bld) [#/Vol] 12.6 10*3/uL 2.0-7.7 [facility] Neutrophils/100 WBC (Bld) 88.9 % 47-70 [facility] Potassium [Moles/Vol] 3.5 mmol/L 3.5-5.1 [facility] Protein [Mass/Vol] 6.8 g/dL 6.4-8.2 [facility] Sodium [Moles/Vol] 137 mmol/L 136-145 [facility] WBC (Bld) [#/Vol] 14.2 10*3/uL 4.4-11.0 [facility] Blood erythrocytes count (nu mber/volume)Ordered By: Siddharth Herrera on 06-26-2023 RBC (Bld) [#/Vol] 4.21 10*6/uL 4.2-5.4 [facility] Blood hemoglobin measurement (mass/volume)Ordered By: Siddharth Herrera on 06-26-2023 Hemoglobin (Bld) [Mass/Vol] 12.3 g/dL 12.0-15.0 [facility] Blood lymphocytes/100 leukoc ytesOrdered By: Siddharth Herrera on 06-26-2023 Lymphocytes/100 WBC (Bld) 6.8 % 19-41 [facility] Blood monocytes/100 leukocyt esOrdered By: Siddharth Herrera on 06-26-2023 Monocytes/100 WBC (Bld) 3.4 % 0-10 [facility] Blood platelet mean volumeOr dered By: Siddharth Herrera on 06-26-2023 Platelet mean volume (Bld) [Entitic vol] 12.7 fL 6.2-12.0 [facility] Determination of erythrocyte mean corpuscular volume (MCV)Ordered By: Siddharth Herrera on 06-26-2023 MCV (RBC) [Entitic vol] 90.5 fL 81-99 [facility] Hematocrit Auto (Bld) [Volum e fraction]Ordered By: Siddharth Herrera on 06-26-2023 Hematocrit (Bld) [Volume fraction] 38.1 % 37-47 [facility] Laboratory - Chemistry and C hemistry - challengeOrdered By: Siddharth Herrera on 06-26-2023 ALP [Catalytic activity/Vol] 86 U/L 45-117 [facility] ALT [Catalytic activity/Vol] 69 U/L 13-56 [facility] CO2 [Moles/Vol] 21.0 mmol/L 21.0-32.0 [facility] Globulin (S) [Mass/Vol] 3.2 g/dL 2.2-4.2 [facility] Lipase [Catalytic activity/Vol] U/L 13-75 [facility] Comment on above: Please note:LIPASE r evised reference range effective 22. New Lipase methodology. Expected to produce lower values than the previous assay method. NEW Reference Range: 13 - 75 U/L Urea nitrogen/Creatinine [Mass ratio] 18.9 mg/mg 10-20 [facility] - Hematology and Cell countsOrdered By: Siddharth Herrera on 06-26-2023 Erythrocyte distribution width (RBC) [Entitic vol] 42.9 fL 35.1-43.9 [facility] Erythrocyte distribution width (RBC) [Ratio] 13.0 % 11.6-14.6 [facility] Immature granulocytes/100 WBC (Bld) 0.800 % 0.0-0.9 [facility] Comment on above: IG% - Immature Granu locytes (promyelocytes, myelocytes and metamyelocytes) > 1% indicates that a LEFT SHIFT is Present. MCH (RBC) [Entitic mass] 29.2 pg 27.0-32.0 [facility] Nucleated RBC/100 WBC (Bld) [Ratio] 0 % 0-5 [facility] MCHC Auto (RBC) [Mass/Vol]Or dered By: Siddharth Herrera on 06-26-2023 MCHC (RBC) [Mass/Vol] 32.3 g/dL 32-36 [facility] No Panel InformationOrdered By: Siddharth Herrera on 06-26-2023 Estimated Creatinine Clearance Calc 102.98 ml/min [facility] Estimated GFR (MDRD) Amer 102 mL/min >60 [facility] Comment on above: GFR Calc Estimated GFR (MDRD) Non-Af Amer 84 mL/min >60 [facility] Comment on above: Non- GFR Calc Platelets bldOrdered By: Margarita Herrera on 06-26-2023 Platelets (Bld) [#/Vol] 160 10*3/uL 150-450 [facility] Serum or plasma albumin milli urement (mass/volume)Ordered By: Siddharth Herrera on 06-26-2023 Albumin [Mass/Vol] 3.6 g/dL 3.2-5.0 [facility] Serum or plasma albumin/glob ulin mass ratioOrdered By: Siddharth Herrera on 06-26-2023 Albumin/Globulin [Mass ratio] 1.1 {ratio} 0.9-2.4 [facility] Serum or plasma calcium milli urement (mass/volume)Ordered By: Siddharth Herrera on 06-26-2023 Calcium [Mass/Vol] 8.8 mg/dL 8.5-10.1 [facility] Serum or plasma creatinine m easurement (mass/volume)Ordered By: Siddharth Herrera on 06-26-2023 Creatinine [Mass/Vol] 0.85 mg/dL 0.55-1.02 [facility] Comment on above: The validity of the calculated GFR & GFRAA in patients over 70 years has not been determined. Clinical correlation is essential. Serum or plasma urea nitroge n measurement (mass/volume)Ordered By: Siddharth Herrera on 06-26-2023 Urea nitrogen [Mass/Vol] 16 mg/dL 7-18 [facility] Thin prep Papanicolaou smear with manual screeningOrdered By: Siddharth Herrera on 06-26-2023 Thin prep Papanicolaou smear with manual screening 35 U/L 15-37 [facility] Thin prep Papanicolaou smear with manual screening 12 5-15 [facility] Absolute lymphocyte countOrd ered By: Greg Philip on 06-25-2023 Lymphocytes Auto (Unsp spec) [#/Vol] 2.12 10*3/uL 0.83-4.51 [facility] Basophil percentageOrdered B y: Greg Philip on 06-25-2023 Basophils/100 WBC (Bld) 0.4 % 0-1 [facility] Bilirubin [Mass/Vol] 0.60 mg/dL 0.20-1.00 [facility] Comment on above: For patients on eltr ombopag therapy, use of Dimension Ivor TBIL is not recommended. Chloride [Moles/Vol] 109 mmol/L 98-107 [facility] Eosinophils/100 WBC (Bld) 0.4 % 0-5 [facility] Glucose [Mass/Vol] 283 mg/dL 74-106 [facility] Comment on above: Glucose result great er than or equal to 200 mg/dLsuggests DIABETES MELLITUS per A.D.A. criteria. Neutrophils (Bld) [#/Vol] 9.2 10*3/uL 2.0-7.7 [facility] Neutrophils/100 WBC (Bld) 75.9 % 47-70 [facility] Potassium [Moles/Vol] 3.8 mmol/L 3.5-5.1 [facility] Protein [Mass/Vol] 6.9 g/dL 6.4-8.2 [facility] Sodium [Moles/Vol] 140 mmol/L 136-145 [facility] WBC (Bld) [#/Vol] 12.1 10*3/uL 4.4-11.0 [facility] Beta hCG serum qualOrdered B y: Greg Philip on 06-25-2023 Beta HCG ( test) Ql Negative [facility] Blood erythrocytes count (nu mber/volume)Ordered By: Greg Philip on 06-25-2023 RBC (Bld) [#/Vol] 4.56 10*6/uL 4.2-5.4 [facility] Blood hemoglobin measurement (mass/volume)Ordered By: Greg Philip on 06-25-2023 Hemoglobin (Bld) [Mass/Vol] 13.5 g/dL 12.0-15.0 [facility] Blood lymphocytes/100 leukoc ytesOrdered By: Greg Philip on 06-25-2023 Lymphocytes/100 WBC (Bld) 17.5 % 19-41 [facility] Blood monocytes/100 leukocyt esOrdered By: Greg Philip on 06-25-2023 Monocytes/100 WBC (Bld) 5.0 % 0-10 [facility] Blood platelet mean volumeOr dered By: Greg Philip on 06-25-2023 Platelet mean volume (Bld) [Entitic vol] 12.9 fL 6.2-12.0 [facility] Determination of erythrocyte mean corpuscular volume (MCV)Ordered By: Greg Philip on 06-25-2023 MCV (RBC) [Entitic vol] 89.5 fL 81-99 [facility] Hematocrit Auto (Bld) [Volum e fraction]Ordered By: Greg Philip on 06-25-2023 Hematocrit (Bld) [Volume fraction] 40.8 % 37-47 [facility] Laboratory - Chemistry and C hemistry - challengeOrdered By: Greg Philip on 06-25-2023 ALP [Catalytic activity/Vol] 85 U/L 45-117 [facility] ALT [Catalytic activity/Vol] 70 U/L 13-56 [facility] CO2 [Moles/Vol] 22.0 mmol/L 21.0-32.0 [facility] Globulin (S) [Mass/Vol] 3.2 g/dL 2.2-4.2 [facility] Lipase [Catalytic activity/Vol] 16 U/L 13-75 [facility] Comment on above: Please note:LIPASE r evised reference range effective 22. New Lipase methodology. Expected to produce lower values than the previous assay method. NEW Reference Range: 13 - 75 U/L Urea nitrogen/Creatinine [Mass ratio] 17.3 mg/mg 10-20 [facility] - Hematology and Cell countsOrdered By: Greg Philip on 06-25-2023 Erythrocyte distribution width (RBC) [Entitic vol] 42.5 fL 35.1-43.9 [facility] Erythrocyte distribution width (RBC) [Ratio] 13.1 % 11.6-14.6 [facility] Immature granulocytes/100 WBC (Bld) 0.800 % 0.0-0.9 [facility] Comment on above: IG% - Immature Granu locytes (promyelocytes, myelocytes and metamyelocytes) > 1% indicates that a LEFT SHIFT is Present. MCH (RBC) [Entitic mass] 29.6 pg 27.0-32.0 [facility] Nucleated RBC/100 WBC (Bld) [Ratio] 0 % 0-5 [facility] MCHC Auto (RBC) [Mass/Vol]Or dered By: Greg Philip on 06-25-2023 MCHC (RBC) [Mass/Vol] 33.1 g/dL 32-36 [facility] No Panel InformationOrdered By: Greg Philip on 06-25-2023 Estimated Creatinine Clearance Calc 104.31 ml/min [facility] Estimated GFR (MDRD) Amer 108 mL/min >60 [facility] Comment on above: GFR Calc Estimated GFR (MDRD) Non-Af Amer 89 mL/min >60 [facility] Comment on above: Non- GFR Calc Platelets bldOrdered By: Allyn Philip on 06-25-2023 Platelets (Bld) [#/Vol] 180 10*3/uL 150-450 [facility] Serum or plasma albumin milli urement (mass/volume)Ordered By: Greg Philip on 06-25-2023 Albumin [Mass/Vol] 3.7 g/dL 3.2-5.0 [facility] Serum or plasma albumin/glob ulin mass ratioOrdered By: Greg Philip on 06-25-2023 Albumin/Globulin [Mass ratio] 1.2 {ratio} 0.9-2.4 [facility] Serum or plasma calcium milli urement (mass/volume)Ordered By: Greg Philip on 06-25-2023 Calcium [Mass/Vol] 9.1 mg/dL 8.5-10.1 [facility] Serum or plasma creatinine m easurement (mass/volume)Ordered By: Greg Philip on 06-25-2023 Creatinine [Mass/Vol] 0.81 mg/dL 0.55-1.02 [facility] Comment on above: The validity of the calculated GFR & GFRAA in patients over 70 years has not been determined. Clinical correlation is essential. Serum or plasma urea nitroge n measurement (mass/volume)Ordered By: Greg Philip on 06-25-2023 Urea nitrogen [Mass/Vol] 14 mg/dL 7-18 [facility] Thin prep Papanicolaou smear with manual screeningOrdered By: Greg Philip on 06-25-2023 Thin prep Papanicolaou smear with manual screening 39 U/L 15-37 [facility] Thin prep Papanicolaou smear with manual screening 9 5-15 [facility] HEMOGLOBIN A1C (POC)on 05-31 HbA1c (Bld) [Mass fraction] 7.2 % Abnormal 4.2 - 5.6 % [facility] CNPNon 05-23-2023 CNPN Telephone (FAMPOR) KATHLEEN VILLA ([id number]) 1995 F T Date Time Provider Department [...] 04/16/2014 [Z34.90] 11/22/2013 04/16/2014 Diabetes mellitus in ([facility]) [O24.919] 12/25/2013 04/16/2014 Diabetic ketoacidosis without coma associated w*01/08/2014 02/04/2023 Aortic root aneurysm ([facility]) [I71.21] 01/08/2014 DVT prophylaxis [Z79.899] 02/25/2014 04/16/2014 [...] Encounter Status:Closed by EUNICE MCDONALD on 05/23/23 [facility] Basophil percentageOrdered B y: Lin Johansen on 05-03-2023 Chloride [Moles/Vol] 111 mmol/L 98-107 [facility] Glucose [Mass/Vol] 230 mg/dL 74-106 [facility] Comment on above: Glucose result great er than or equal to 200 mg/dLsuggests DIABETES MELLITUS per A.D.A. criteria. Potassium [Moles/Vol] 3.7 mmol/L 3.5-5.1 [facility] Sodium [Moles/Vol] 142 mmol/L 136-145 [facility] Beta hCG serum qualOrdered B y: Marc Carl on 05-03-2023 Beta HCG ( test) Ql Negative [facility] - Chemistry and C hemistry - challengeOrdered By: Lin Johansen on 05-03-2023 CO2 [Moles/Vol] 22.0 mmol/L 21.0-32.0 [facility] Urea nitrogen/Creatinine [Mass ratio] 12.8 mg/mg 10-20 [facility] No Panel InformationOrdered By: Lin Johansen on 05-03-2023 Estimated Creatinine Clearance Calc 141.18 ml/min [facility] Estimated GFR (MDRD) Amer 145 mL/min >60 [facility] Comment on above: GFR Calc Estimated GFR (MDRD) Non-Af Amer 120 mL/min >60 [facility] Comment on above: Non- GFR Calc Serum or plasma acetone milli urement (mass/volume)Ordered By: Marc Carl on 05-03-2023 Acetone [Mass/Vol] MODERATE NEG [facility] Serum or plasma calcium milli urement (mass/volume)Ordered By: Lin Johansen on 05-03-2023 Calcium [Mass/Vol] 7.7 mg/dL 8.5-10.1 [facility] Serum or plasma creatinine m easurement (mass/volume)Ordered By: Lin Johansen on 05-03-2023 Creatinine [Mass/Vol] 0.62 mg/dL 0.55-1.02 [facility] Comment on above: The validity of the calculated GFR & GFRAA in patients over 70 years has not been determined. Clinical correlation is essential. Serum or plasma urea nitroge n measurement (mass/volume)Ordered By: Lin Johansen on 05-03-2023 Urea nitrogen [Mass/Vol] 8 mg/dL 7-18 [facility] Thin prep Papanicolaou smear with manual screeningOrdered By: Lin Johansen on 05-03-2023 Thin prep Papanicolaou smear with manual screening 9 5-15 [facility] Absolute lymphocyte countOrd ered By: Ileana Lobo on 04-29-2023 Lymphocytes Auto (Unsp spec) [#/Vol] 2.07 10*3/uL 0.83-4.51 [facility] Basophil percentageOrdered B y: Ileana Lobo on 04-29-2023 Basophils/100 WBC (Bld) 0.3 % 0-1 [facility] Chloride [Moles/Vol] 108 mmol/L 98-107 [facility] Eosinophils/100 WBC (Bld) 0.0 % 0-5 [facility] Glucose [Mass/Vol] 258 mg/dL 74-106 [facility] Comment on above: Glucose result great er than or equal to 200 mg/dLsuggests DIABETES MELLITUS per A.D.A. criteria. Neutrophils (Bld) [#/Vol] 11.5 10*3/uL 2.0-7.7 [facility] Neutrophils/100 WBC (Bld) 79.4 % 47-70 [facility] Potassium [Moles/Vol] 4.5 mmol/L 3.5-5.1 [facility] Sodium [Moles/Vol] 136 mmol/L 136-145 [facility] WBC (Bld) [#/Vol] 14.4 10*3/uL 4.4-11.0 [facility] Blood erythrocytes count (nu mber/volume)Ordered By: Ileana Lobo on 04-29-2023 RBC (Bld) [#/Vol] 3.86 10*6/uL 4.2-5.4 [facility] Blood hemoglobin measurement (mass/volume)Ordered By: Ileana Lobo on 04-29-2023 Hemoglobin (Bld) [Mass/Vol] 11.5 g/dL 12.0-15.0 [facility] Blood lymphocytes/100 leukoc ytesOrdered By: Ileana Lobo on 04-29-2023 Lymphocytes/100 WBC (Bld) 14.3 % 19-41 [facility] Blood monocytes/100 leukocyt esOrdered By: Ileana Lobo on 04-29-2023 Monocytes/100 WBC (Bld) 4.9 % 0-10 [facility] Blood platelet mean volumeOr dered By: Ileana Lobo on 04-29-2023 Platelet mean volume (Bld) [Entitic vol] 11.6 fL 6.2-12.0 [facility] Determination of erythrocyte mean corpuscular volume (MCV)Ordered By: Ileana Lobo on 04-29-2023 MCV (RBC) [Entitic vol] 91.2 fL 81-99 [facility] Glucose Glucometer (BldC) [M ass/Vol]Ordered By: Ileana Lobo on 04-29-2023 Glucose [Mass/Vol] 210 mg/dL 74-106 [facility] Comment on above: MANAGEMENT OF PATIEN T CARE PER NURSING PROTOCOL Hematocrit Auto (Bld) [Volum e fraction]Ordered By: Ileana Lobo on 04-29-2023 Hematocrit (Bld) [Volume fraction] 35.2 % 37-47 [facility] Laboratory - Chemistry and C hemistry - challengeOrdered By: Ileana Lobo on 04-29-2023 CO2 [Moles/Vol] 19.0 mmol/L 21.0-32.0 [facility] Urea nitrogen/Creatinine [Mass ratio] 11.6 mg/mg 10-20 [facility] - Hematology and Cell countsOrdered By: Ileana Lobo on 04-29-2023 Erythrocyte distribution width (RBC) [Entitic vol] 47.9 fL 35.1-43.9 [facility] Erythrocyte distribution width (RBC) [Ratio] 14.3 % 11.6-14.6 [facility] Immature granulocytes/100 WBC (Bld) 1.100 % 0.0-0.9 [facility] Comment on above: IG% - Immature Granu locytes (promyelocytes, myelocytes and metamyelocytes) > 1% indicates that a LEFT SHIFT is Present. MCH (RBC) [Entitic mass] 29.8 pg 27.0-32.0 [facility] Nucleated RBC/100 WBC (Bld) [Ratio] 0 % 0-5 [facility] MCHC Auto (RBC) [Mass/Vol]Or dered By: Ileana Lobo on 04-29-2023 MCHC (RBC) [Mass/Vol] 32.7 g/dL 32-36 [facility] No Panel InformationOrdered By: Ileana Lobo on 04-29-2023 Estimated Creatinine Clearance Calc 112.22 ml/min [facility] Estimated GFR (MDRD) Amer 113 mL/min >60 [facility] Comment on above: GFR Calc Estimated GFR (MDRD) Non-Af Amer 93 mL/min >60 [facility] Comment on above: Non- GFR Calc Platelets bldOrdered By: Jes Lobo on 04-29-2023 Platelets (Bld) [#/Vol] 143 10*3/uL 150-450 [facility] Serum or plasma calcium milli urement (mass/volume)Ordered By: Ileana Lobo on 04-29-2023 Calcium [Mass/Vol] 8.0 mg/dL 8.5-10.1 [facility] Serum or plasma creatinine m easurement (mass/volume)Ordered By: Ileana Lobo on 04-29-2023 Creatinine [Mass/Vol] 0.78 mg/dL 0.55-1.02 [facility] Comment on above: The validity of the calculated GFR & GFRAA in patients over 70 years has not been determined. Clinical correlation is essential. Serum or plasma urea nitroge n measurement (mass/volume)Ordered By: Ileana Lobo on 04-29-2023 Urea nitrogen [Mass/Vol] 9 mg/dL 7-18 [facility] Thin prep Papanicolaou smear with manual screeningOrdered By: Ileana Lobo on 04-29-2023 Thin prep Papanicolaou smear with manual screening 9 5-15 [facility] Assessment of wrist artery p atency prior to arterial punctureOrdered By: David Smith on 04-28-2023 Arterial patency Wrist artery --pre arterial puncture Positive [facility] Base excessOrdered By: Demond Smith on 04-28-2023 Base excess Calc (BldV) [Moles/Vol] -6 mmol/L -2-2 [facility] Basophil percentageOrdered B y: Ileana Lobo on 04-28-2023 Basophil percentage 0-5 SEEN /hpf 0-5 [facility] Basophil percentageOrdered B y: David Smith on 04-28-2023 Basophil percentage 18.2 mmol/L 22-26 [facility] Basophils/100 WBC (Bld) 99 % 95-99 [facility] Bilirubin Test strip Ql (U)O rdered By: Ileana Lobo on 04-28-2023 Bilirubin Ql (U) Negative Negative [facility] CO2 (BldA) [Partial pressure ]Ordered By: David Smith on 04-28-2023 CO2 (Bld) [Partial pressure] 26.7 mm[Hg] 35-45 [facility] Culture, urineOrdered By: Jocelyne Lobo on 04-28-2023 Bacteria identified Cx Nom (U) Positive [facility] Bacteria identified Cx Nom (U) Positive [facility] Ketones Test strip Ql (U)Ord ered By: Ileana Lobo on 04-28-2023 Ketones Ql (U) 150 mg/dl Negative [facility] Comment on above: CRITICAL VALUE *HCRI TICAL VALUE VERIFIED. CALLED TO UNYHZGGOL09/01/23 Feliciano Felix.RESULTS READ BACK BY SAME . Laboratory - Chemistry and C hemistry - challengeOrdered By: Ileana Lobo on 04-28-2023 Magnesium [Mass/Vol] 2.1 mg/dL 1.6-2.6 [facility] Laboratory - Drug toxicology Ordered By: Ileana Lobo on 04-28-2023 Amphetamines Ql (U) Negative <1000 ng/mL [facility] Benzodiazepines Ql (U) Negative < 200 ng/mL [facility] Cannabinoids Screen Ql (U) Positive < 50 ng/mL [facility] Cocaine Ql (U) Negative < 300 ng/mL [facility] Opiates Ql (U) Negative < 300 ng/mL [facility] Mucus LM Ql (Urine sed)Order ed By: Ileana Lobo on 04-28-2023 Mucus Ql (Urine sed) 0 SEEN /hpf [facility] Nitrite Test strip Ql (U)Ord ered By: Ileana Lobo on 04-28-2023 Nitrite Ql (U) Negative Negative [facility] No Panel InformationOrdered By: Ileana Lobo on 04-28-2023 MDMA (Ecstasy) Screen Negative < 500 ng/mL [facility] Urine Barbiturates Screen Negative < 200 ng/mL [facility] Urine Drug Screen Comment [facility] Comment on above: CONFIRMATORY TESTING FOR [...] Methadone Screen Negative < 300 ng/mL [facility] No Panel InformationOrdered By: David Smith on 04-28-2023 Blood Gas Sample Site R Radial [facility] Blood Gas Specimen Type ART [facility] Blood Gas Total CO2 19 mmol/L [facility] Oxygen (BldA) [Partial press ure]Ordered By: David Smith on 04-28-2023 Oxygen (Bld) [Partial pressure] 107 mmHG 75-100 [facility] Protein Test strip Ql (U)Ord ered By: Ileana Lobo on 04-28-2023 Protein Ql (U) Negative Negative [facility] Serum or plasma acetone milli urement (mass/volume)Ordered By: Vincenzo Castañeda on 04-28-2023 Acetone [Mass/Vol] SMALL NEG [facility] Serum procalcitonin measurem entOrdered By: Ileana Lobo on 04-28-2023 Procalcitonin [Mass/Vol] 0.08 ng/mL 0.00-0.09 [facility] Comment on above: A procalcitonin (PCT [...] Ql (Urine sed) 0 SEEN /hpf 5-10 [facility] Urine blood detectionOrdered By: Ileana Lobo on 04-28-2023 RBC Ql (U) Negative Negative [facility] RBC Ql (U) 0 SEEN /hpf 0-5 [facility] Urine clarityOrdered By: Jes Lobo on 04-28-2023 Clarity (U) Clear Clear [facility] Urine color determinationOrd ered By: Ileana Lobo on 04-28-2023 Color (U) Straw Yellow [facility] Urine glucose detectionOrder ed By: Ileana Lobo on 04-28-2023 Glucose Ql (U) 100 mg/dl Normal [facility] Urine leukocyte esterase det ection by dipstickOrdered By: Ileana Lobo on 04-28-2023 Leukocyte esterase Test strip Ql (U) 25 /ul Negative [facility] Urine pHOrdered By: Ileana mayorga on 04-28-2023 pH (U) 5.0 [pH] 5.0 - 8.0 [facility] Urine phencyclidine (PCP) de tectionOrdered By: Ileana Lobo on 04-28-2023 Phencyclidine Ql (U) Negative < 25 ng/mL [facility] Urine sediment bacteria coun t by microscopy (number/high power field)Ordered By: Ileana Lobo on 04-28-2023 Bacteria LM.HPF (Urine sed) [#/Area] 0 /[HPF] None Seen [facility] Urine specific gravity measu rementOrdered By: Ileana Lobo on 04-28-2023 Specific gravity (U) [Rel density] 1.010 1.002-1.030 [facility] Urobilinogen Auto test strip Ql (U)Ordered By: Ileana Lobo on 04-28-2023 Urobilinogen Ql (U) Normal mg/dl Normal [facility] pH measurementOrdered By: Gloria Smith on 04-28-2023 pH (Unsp spec) 7.44 [pH] 7.35-7.45 [facility] Absolute lymphocyte countOrd ered By: Lin Johansen on 04-27-2023 Lymphocytes Auto (Unsp spec) [#/Vol] 0.67 10*3/uL 0.83-4.51 [facility] Basophil percentageOrdered B y: Lin Johansen on 04-27-2023 Basophils/100 WBC (Bld) 0.2 % 0-1 [facility] Bilirubin [Mass/Vol] 1.00 mg/dL 0.20-1.00 [facility] Comment on above: For patients on eltr ombopag therapy, use of Dimension Ivor TBIL is not recommended. Chloride [Moles/Vol] 102 mmol/L 98-107 [facility] Eosinophils/100 WBC (Bld) 0.0 % 0-5 [facility] Glucose [Mass/Vol] 313 mg/dL 74-106 [facility] Comment on above: Glucose result great er than or equal to 200 mg/dLsuggests DIABETES MELLITUS per A.D.A. criteria. Neutrophils (Bld) [#/Vol] 19.6 10*3/uL 2.0-7.7 [facility] Neutrophils/100 WBC (Bld) 93.9 % 47-70 [facility] Potassium [Moles/Vol] 5.1 mmol/L 3.5-5.1 [facility] Protein [Mass/Vol] 7.5 g/dL 6.4-8.2 [facility] Sodium [Moles/Vol] 130 mmol/L 136-145 [facility] WBC (Bld) [#/Vol] 20.9 10*3/uL 4.4-11.0 [facility] Blood erythrocytes count (nu mber/volume)Ordered By: Lin Johansen on 04-27-2023 RBC (Bld) [#/Vol] 4.65 10*6/uL 4.2-5.4 [facility] Blood hemoglobin measurement (mass/volume)Ordered By: Lin Johansen on 04-27-2023 Hemoglobin (Bld) [Mass/Vol] 13.5 g/dL 12.0-15.0 [facility] Blood lymphocytes/100 leukoc ytesOrdered By: Lin Johansen on 04-27-2023 Lymphocytes/100 WBC (Bld) 3.2 % 19-41 [facility] Blood monocytes/100 leukocyt esOrdered By: Lin Johansen on 04-27-2023 Monocytes/100 WBC (Bld) 0.9 % 0-10 [facility] Blood platelet mean volumeOr dered By: Lin Johansen on 04-27-2023 Platelet mean volume (Bld) [Entitic vol] 12.5 fL 6.2-12.0 [facility] Determination of erythrocyte mean corpuscular volume (MCV)Ordered By: Lin Johansen on 04-27-2023 MCV (RBC) [Entitic vol] 90.3 fL 81-99 [facility] Direct bilirubinOrdered By: Lin Johansen on 04-27-2023 Bilirubin.direct [Mass/Vol] 0.30 mg/dL 0.00-0.30 [facility] Glucose Glucometer (BldC) [M ass/Vol]Ordered By: Lin Johansen on 04-27-2023 Glucose [Mass/Vol] 206 mg/dL 74-106 [facility] Comment on above: MANAGEMENT OF PATIEN T CARE PER NURSING PROTOCOL Hematocrit Auto (Bld) [Volum e fraction]Ordered By: Lin Johansen on 04-27-2023 Hematocrit (Bld) [Volume fraction] 42.0 % 37-47 [facility] Laboratory - Chemistry and C hemistry - challengeOrdered By: Lin Johansen on 04-27-2023 ALP [Catalytic activity/Vol] 85 U/L 45-117 [facility] ALT [Catalytic activity/Vol] 22 U/L 13-56 [facility] CO2 [Moles/Vol] 13.0 mmol/L 21.0-32.0 [facility] Globulin (S) [Mass/Vol] 3.5 g/dL 2.2-4.2 [facility] Lipase [Catalytic activity/Vol] 10 U/L 13-75 [facility] Comment on above: Please note:LIPASE r evised reference range effective 22. New Lipase methodology. Expected to produce lower values than the previous assay method. NEW Reference Range: 13 - 75 U/L Urea nitrogen/Creatinine [Mass ratio] 13.9 mg/mg 10-20 [facility] - Hematology and Cell countsOrdered By: Lin Johansen on 04-27-2023 Erythrocyte distribution width (RBC) [Entitic vol] 46.5 fL 35.1-43.9 [facility] Erythrocyte distribution width (RBC) [Ratio] 14.2 % 11.6-14.6 [facility] Immature granulocytes/100 WBC (Bld) 1.800 % 0.0-0.9 [facility] Comment on above: IG% - Immature Granu locytes (promyelocytes, myelocytes and metamyelocytes) > 1% indicates that a LEFT SHIFT is Present. MCH (RBC) [Entitic mass] 29.0 pg 27.0-32.0 [facility] Nucleated RBC/100 WBC (Bld) [Ratio] 0 % 0-5 [facility] MCHC Auto (RBC) [Mass/Vol]Or dered By: Lin Johansen on 04-27-2023 MCHC (RBC) [Mass/Vol] 32.1 g/dL 32-36 [facility] No Panel InformationOrdered By: Lin Johansen on 04-27-2023 Estimated Creatinine Clearance Calc 78.23 ml/min [facility] Estimated GFR (MDRD) Amer 77 mL/min >60 [facility] Comment on above: GFR Calc Estimated GFR (MDRD) Non-Af Amer 64 mL/min >60 [facility] Comment on above: Non- GFR Calc Platelets bldOrdered By: Vicenta Johansen on 04-27-2023 Platelets (Bld) [#/Vol] 158 10*3/uL 150-450 [facility] Serum or plasma albumin milli urement (mass/volume)Ordered By: Lin Johansen on 04-27-2023 Albumin [Mass/Vol] 4.0 g/dL 3.2-5.0 [facility] Serum or plasma calcium milli urement (mass/volume)Ordered By: Lin Johansen on 04-27-2023 Calcium [Mass/Vol] 9.4 mg/dL 8.5-10.1 [facility] Serum or plasma creatinine m easurement (mass/volume)Ordered By: Lin Johansen on 04-27-2023 Creatinine [Mass/Vol] 1.08 mg/dL 0.55-1.02 [facility] Comment on above: The validity of the calculated GFR & GFRAA in patients over 70 years has not been determined. Clinical correlation is essential. Serum or plasma urea nitroge n measurement (mass/volume)Ordered By: Lin Jhoansen on 04-27-2023 Urea nitrogen [Mass/Vol] 15 mg/dL 7-18 [facility] Thin prep Papanicolaou smear with manual screeningOrdered By: Lin Johansen on 04-27-2023 Thin prep Papanicolaou smear with manual screening 10 U/L 15-37 [facility] Thin prep Papanicolaou smear with manual screening 15 5-15 [facility] Absolute lymphocyte countOrd ered By: Loki Soria on 04-26-2023 Lymphocytes Auto (Unsp spec) [#/Vol] 1.87 10*3/uL 0.83-4.51 [facility] Basophil percentageOrdered B y: Loki Soria on 04-26-2023 Basophils/100 WBC (Bld) 0.3 % 0-1 [facility] Chloride [Moles/Vol] 106 mmol/L 98-107 [facility] Eosinophils/100 WBC (Bld) 0.4 % 0-5 [facility] Glucose [Mass/Vol] 108 mg/dL 74-106 [facility] Comment on above: Fasting Glucose resu lt from 100 to 125 mg/dL suggests IMPAIRED HOMEOSTASIS per A.D.A. criteria. Neutrophils (Bld) [#/Vol] 10.8 10*3/uL 2.0-7.7 [facility] Neutrophils/100 WBC (Bld) 78.6 % 47-70 [facility] Potassium [Moles/Vol] 3.9 mmol/L 3.5-5.1 [facility] Sodium [Moles/Vol] 135 mmol/L 136-145 [facility] WBC (Bld) [#/Vol] 13.8 10*3/uL 4.4-11.0 [facility] Blood erythrocytes count (nu mber/volume)Ordered By: Loki Soria on 04-26-2023 RBC (Bld) [#/Vol] 4.80 10*6/uL 4.2-5.4 [facility] Blood hemoglobin measurement (mass/volume)Ordered By: Loki Soria on 04-26-2023 Hemoglobin (Bld) [Mass/Vol] 14.1 g/dL 12.0-15.0 [facility] Blood lymphocytes/100 leukoc ytesOrdered By: Loki Soria on 04-26-2023 Lymphocytes/100 WBC (Bld) 13.6 % 19-41 [facility] Blood monocytes/100 leukocyt esOrdered By: Loki Soria on 04-26-2023 Monocytes/100 WBC (Bld) 6.2 % 0-10 [facility] Blood platelet mean volumeOr dered By: Loki Soria on 04-26-2023 Platelet mean volume (Bld) [Entitic vol] 11.5 fL 6.2-12.0 [facility] Determination of erythrocyte mean corpuscular volume (MCV)Ordered By: Loki Soria on 04-26-2023 MCV (RBC) [Entitic vol] 88.8 fL 81-99 [facility] Hematocrit Auto (Bld) [Volum e fraction]Ordered By: Loki Soria on 04-26-2023 Hematocrit (Bld) [Volume fraction] 42.6 % 37-47 [facility] Laboratory - Chemistry and C hemistry - challengeOrdered By: Loki Soria on 04-26-2023 CO2 [Moles/Vol] 20.0 mmol/L 21.0-32.0 [facility] Urea nitrogen/Creatinine [Mass ratio] 10.5 mg/mg 10-20 [facility] - Hematology and Cell countsOrdered By: Loki Soria on 04-26-2023 Erythrocyte distribution width (RBC) [Entitic vol] 45.3 fL 35.1-43.9 [facility] Erythrocyte distribution width (RBC) [Ratio] 13.9 % 11.6-14.6 [facility] Immature granulocytes/100 WBC (Bld) 0.900 % 0.0-0.9 [facility] Comment on above: IG% - Immature Granu locytes (promyelocytes, myelocytes and metamyelocytes) > 1% indicates that a LEFT SHIFT is Present. MCH (RBC) [Entitic mass] 29.4 pg 27.0-32.0 [facility] Nucleated RBC/100 WBC (Bld) [Ratio] 0 % 0-5 [facility] MCHC Auto (RBC) [Mass/Vol]Or dered By: Loki Soria on 04-26-2023 MCHC (RBC) [Mass/Vol] 33.1 g/dL 32-36 [facility] No Panel InformationOrdered By: Loki Soria on 04-26-2023 Estimated Creatinine Clearance Calc 91.18 ml/min [facility] Estimated GFR (MDRD) Amer 89 mL/min >60 [facility] Comment on above: GFR Calc Estimated GFR (MDRD) Non-Af Amer 74 mL/min >60 [facility] Comment on above: Non- GFR Calc Thyroid Stimulating Hormone (TSH) 3.85 uIU/mL 0.358-3.74 [facility] Troponin I High Sensitivity 4 pg/mL 3.0-54.0 [facility] Comment on above: Please Note: New Ivone t Units and Gender Specific Reference Ranges. For more information see Policy Stat Procedure Ivor High Sensitivity Troponin (TNIH) and attachments. Platelets bldOrdered By: Ashley Soria on 04-26-2023 Platelets (Bld) [#/Vol] 158 10*3/uL 150-450 [facility] Serum or plasma calcium milli urement (mass/volume)Ordered By: Loki Soria on 04-26-2023 Calcium [Mass/Vol] 9.2 mg/dL 8.5-10.1 [facility] Serum or plasma creatinine m easurement (mass/volume)Ordered By[facility] on 04-26-2023 Creatinine [Mass/Vol] 0.96 mg/dL 0.55-1.02 [facility] Comment on above: The validity of the calculated GFR & GFRAA in patients over 70 years has not been determined. Clinical correlation is essential. Serum or plasma urea nitroge n measurement (mass/volume)Ordered By: [place] Yang on 04-26-2023 Urea nitrogen [Mass/Vol] 10 mg/dL 7-18 [facility] Thin prep Papanicolaou smear with manual screeningOrdered By: [facility] on 04-26-2023 Thin prep Papanicolaou smear with manual screening 9 5-15 [facility] Absolute lymphocyte countOrd ered By: rGeg Philip on 04-23-2023 Lymphocytes Auto (Unsp spec) [#/Vol] 1.93 10*3/uL 0.83-4.51 [facility] Basophil percentageOrdered B y: Greg Philip on 04-23-2023 Basophil percentage 5-10 SEEN /hpf 0-5 [facility] Basophils/100 WBC (Bld) 0.3 % 0-1 [facility] Bilirubin [Mass/Vol] 0.30 mg/dL 0.20-1.00 [facility] Comment on above: For patients on eltr ombopag therapy, use of Dimension Ivor TBIL is not recommended. Chloride [Moles/Vol] 114 mmol/L 98-107 [facility] Eosinophils/100 WBC (Bld) 0.6 % 0-5 [facility] Glucose [Mass/Vol] 60 mg/dL 74-106 [facility] Neutrophils (Bld) [#/Vol] 10.3 10*3/uL 2.0-7.7 [facility] Neutrophils/100 WBC (Bld) 77.2 % 47-70 [facility] Potassium [Moles/Vol] 3.3 mmol/L 3.5-5.1 [facility] Protein [Mass/Vol] 6.3 g/dL 6.4-8.2 [facility] Sodium [Moles/Vol] 143 mmol/L 136-145 [facility] WBC (Bld) [#/Vol] 13.4 10*3/uL 4.4-11.0 [facility] Beta hCG serum qualOrdered B y: Greg Philip on 04-23-2023 Beta HCG ( test) Ql Negative [facility] Bilirubin Test strip Ql (U)O rdered By: Greg Philip on 04-23-2023 Bilirubin Ql (U) Negative Negative [facility] Blood erythrocytes count (nu mber/volume)Ordered By: Greg Philip on 04-23-2023 RBC (Bld) [#/Vol] 4.34 10*6/uL 4.2-5.4 [facility] Blood hemoglobin measurement (mass/volume)Ordered By: Greg Philip on 04-23-2023 Hemoglobin (Bld) [Mass/Vol] 13.0 g/dL 12.0-15.0 [facility] Blood lymphocytes/100 leukoc ytesOrdered By: Greg Philip on 04-23-2023 Lymphocytes/100 WBC (Bld) 14.5 % 19-41 [facility] Blood monocytes/100 leukocyt esOrdered By: Greg Philip on 04-23-2023 Monocytes/100 WBC (Bld) 6.7 % 0-10 [facility] Blood platelet mean volumeOr dered By: Greg Philip on 04-23-2023 Platelet mean volume (Bld) [Entitic vol] 12.7 fL 6.2-12.0 [facility] Determination of erythrocyte mean corpuscular volume (MCV)Ordered By: Greg Philip on 04-23-2023 MCV (RBC) [Entitic vol] 91.7 fL 81-99 [facility] Glucose Glucometer (dC) [M ass/Vol]Ordered By: Greg Philip on 04-23-2023 Glucose [Mass/Vol] 108 mg/dL 74-106 [facility] Comment on above: MANAGEMENT OF PATIEN T CARE PER NURSING PROTOCOL Hematocrit Auto (Bld) [Volum e fraction]Ordered By: Greg Philip on 04-23-2023 Hematocrit (Bld) [Volume fraction] 39.8 % 37-47 [facility] INR in Blood by Coagulation assayOrdered By: Greg Philip on 04-23-2023 INR Coag (Bld) [Relative time] 1.1 {INR} [facility] Ketones Test strip Ql (U)Ord ered By: Greg Philip on 04-23-2023 Ketones Ql (U) Negative Negative [facility] Laboratory - Chemistry and C hemistry - challengeOrdered By: Greg Philip on 04-23-2023 ALP [Catalytic activity/Vol] 66 U/L 45-117 [facility] ALT [Catalytic activity/Vol] 31 U/L 13-56 [facility] CO2 [Moles/Vol] 25.0 mmol/L 21.0-32.0 [facility] Globulin (S) [Mass/Vol] 2.9 g/dL 2.2-4.2 [facility] Lipase [Catalytic activity/Vol] 19 U/L 13-75 [facility] Comment on above: Please note:LIPASE r evised reference range effective 22. New Lipase methodology. Expected to produce lower values than the previous assay method. NEW Reference Range: 13 - 75 U/L Urea nitrogen/Creatinine [Mass ratio] 23.1 mg/mg 10-20 [facility] Laboratory - CoagulationOrde red By: Greg Philip on 04-23-2023 aPTT Coag (Bld) [Time] 34.5 s 24.1-36.2 [facility] PT Coag (PPP) [Time] 14.4 s 11.7-14.9 [facility] Laboratory - Hematology and Cell countsOrdered By: Greg Philip on 04-23-2023 Erythrocyte distribution width (RBC) [Entitic vol] 47.8 fL 35.1-43.9 [facility] Erythrocyte distribution width (RBC) [Ratio] 14.1 % 11.6-14.6 [facility] Immature granulocytes/100 WBC (Bld) 0.700 % 0.0-0.9 [facility] Comment on above: IG% - Immature Granu locytes (promyelocytes, myelocytes and metamyelocytes) > 1% indicates that a LEFT SHIFT is Present. MCH (RBC) [Entitic mass] 30.0 pg 27.0-32.0 [facility] Nucleated RBC/100 WBC (Bld) [Ratio] 0 % 0-5 [facility] MCHC Auto (RBC) [Mass/Vol]Or dered By: Greg Philip on 04-23-2023 MCHC (RBC) [Mass/Vol] 32.7 g/dL 32-36 [facility] Mucus LM Ql (Urine sed)Order ed By: Greg Philip on 04-23-2023 Mucus Ql (Urine sed) 0 SEEN /hpf [facility] Nitrite Test strip Ql (U)Ord ered By: Greg Philip on 04-23-2023 Nitrite Ql (U) Negative Negative [facility] No Panel InformationOrdered By: Greg Philip on 04-23-2023 Estimated Creatinine Clearance Calc 156.31 ml/min [facility] Estimated GFR (MDRD) Amer 164 mL/min >60 [facility] Comment on above: GFR Calc Estimated GFR (MDRD) Non-Af Amer 135 mL/min >60 [facility] Comment on above: Non- GFR Calc Troponin I High Sensitivity 6 pg/mL 3.0-54.0 [facility] Comment on above: Please Note: New Ivone t Units and Gender Specific Reference Ranges. For more information see Policy Stat Procedure Ivor High Sensitivity Troponin (TNIH) and attachments. Platelets bldOrdered By: Allyn Philip on 04-23-2023 Platelets (Bld) [#/Vol] 149 10*3/uL 150-450 [facility] Protein Test strip Ql (U)Ord ered By: Greg Philip on 04-23-2023 Protein Ql (U) Negative Negative [facility] Serum or plasma acetone milli urement (mass/volume)Ordered By: Greg Philip on 04-23-2023 Acetone [Mass/Vol] Negative NEG [facility] Serum or plasma albumin milli urement (mass/volume)Ordered By: Greg Philip on 04-23-2023 Albumin [Mass/Vol] 3.4 g/dL 3.2-5.0 [facility] Serum or plasma albumin/glob ulin mass ratioOrdered By: Greg Philip on 04-23-2023 Albumin/Globulin [Mass ratio] 1.2 {ratio} 0.9-2.4 [facility] Serum or plasma calcium milli urement (mass/volume)Ordered By: Greg Philip on 04-23-2023 Calcium [Mass/Vol] 8.6 mg/dL 8.5-10.1 [facility] Serum or plasma creatinine m easurement (mass/volume)Ordered By: Greg Philip on 04-23-2023 Creatinine [Mass/Vol] 0.56 mg/dL 0.55-1.02 [facility] Comment on above: The validity of the calculated GFR & GFRAA in patients over 70 years has not been determined. Clinical correlation is essential. Serum or plasma urea nitroge n measurement (mass/volume)Ordered By: Greg Philip on 04-23-2023 Urea nitrogen [Mass/Vol] 13 mg/dL 7-18 [facility] Squamous epithelial cells de tection in urine sediment by light microscopyOrdered By: Greg Philip on 04-23-2023 Epithelial cells.squamous LM Ql (Urine sed) 0 SEEN /hpf 5-10 [facility] Thin prep Papanicolaou smear with manual screeningOrdered By: Greg Philip on 04-23-2023 Thin prep Papanicolaou smear with manual screening 13 U/L 15-37 [facility] Thin prep Papanicolaou smear with manual screening 4 5-15 [facility] Urine blood detectionOrdered By: Greg Philip on 04-23-2023 RBC Ql (U) Negative Negative [facility] RBC Ql (U) 0 SEEN /hpf 0-5 [facility] Urine clarityOrdered By: Allyn Philip on 04-23-2023 Clarity (U) Clear Clear [facility] Urine color determinationOrd ered By: Greg Philip on 04-23-2023 Color (U) Yellow Yellow [facility] Urine glucose detectionOrder ed By: Greg Philip on 04-23-2023 Glucose Ql (U) 50 mg/dl Normal [facility] Urine leukocyte esterase det ection by dipstickOrdered By: Greg Philip on 04-23-2023 Leukocyte esterase Test strip Ql (U) 500 /ul Negative [facility] Urine pHOrdered By: Greg sun on 04-23-2023 pH (U) 8.0 [pH] 5.0 - 8.0 [facility] Urine sediment bacteria coun t by microscopy (number/high power field)Ordered By: Greg Philip on 04-23-2023 Bacteria LM.HPF (Urine sed) [#/Area] 1 /[HPF] None Seen [facility] Urine specific gravity measu rementOrdered By: Greg Philip on 04-23-2023 Specific gravity (U) [Rel density] 1.015 1.002-1.030 [facility] Urobilinogen Auto test strip Ql (U)Ordered By: Greg Philip on 04-23-2023 Urobilinogen Ql (U) Normal mg/dl Normal [facility] CBC W Auto Differential pane l (Bld)on 04-06-2023 Basophils (Bld) [#/Vol] 0.05 10*3/uL Normal <0.11 [facility] Comment on above: Order Comment: Speci men Type: BLOOD SPECIMEN Ordering Facility: [facility] Address: [address] [place] [address] Performed By: #### 3 1201-7, 5195-3, 29143-7, SYPH #### [facility] CLIA [id number] [address] [place] [address] [place] Basophils/100 WBC (Bld) 0.4 % Normal [facility] Comment on above: Order Comment: Speci men Type: BLOOD SPECIMEN Ordering Facility: [facility] Address: [address] [place] [address] Performed By: #### 3 1201-7, 5194-3, 73248-3, SYPH #### [facility] CLIA [id number] [address] [place] [address] [place] Differential cell count method Nom (Bld) Auto Normal [facility] Comment on above: Order Comment: Speci men Type: BLOOD SPECIMEN Ordering Facility: [facility] Address: [address] [place] [address] Performed By: #### 3 1201-7, 5195-3, 62929-5, SYPH #### [facility] CLIA [id number] [address] [place] [address] [place] Eosinophils (Bld) [#/Vol] 0.03 10*3/uL Normal <0.46 [facility] Comment on above: Order Comment: Speci men Type: BLOOD SPECIMEN Ordering Facility: [facility] Address: [address] [place] [address] Performed By: #### 3 1201-7, 5195-3, 54183-1, SYPH #### [facility] CLIA [id number] [address] [place] [address] [place] Eosinophils/100 WBC (Bld) 0.2 % Normal [facility] Comment on above: Order Comment: Speci men Type: BLOOD SPECIMEN Ordering Facility: [facility] Address: [address] [place] [address] Performed By: #### 3 1201-7, 5195-3, 92767-7, SYPH #### [facility] CLIA [id number] [address] [place] [address] [place] Erythrocyte distribution width (RBC) [Ratio] 13.9 % Normal 11.5-15.0 [facility] Comment on above: Order Comment: Speci men Type: BLOOD SPECIMEN Ordering Facility: [facility] Address: [address] [place] [address] Performed By: #### 3 1201-7, 5195-3, 82779-9, SYPH #### [facility] CLIA [id number] [address] [place] [address] [place] Hematocrit (Bld) [Volume fraction] 43.8 % Normal 36.0-46.0 [facility] Comment on above: Order Comment: Speci men Type: BLOOD SPECIMEN Ordering Facility: [facility] Address: [address] [place] [address] Performed By: #### 3 1201-7, 5195-3, 94842-4, SYPH #### [facility] [facility] CLIA [id number] [address] [place] [address] [place] Hemoglobin (Bld) [Mass/Vol] 14.4 g/dL Normal 11.5-15.5 [facility] Comment on above: Order Comment: Speci men Type: BLOOD SPECIMEN Ordering Facility: [facility] Address: [address] [place] [address] Performed By: #### 3 1201-7, 5195-3, 63054-5, SYPH #### [facility] CLIA [id number] [address] [place] [address] [place] Immature granulocytes (Bld) [#/Vol] 0.11 10*3/uL High <0.10 [facility] Comment on above: Order Comment: Speci men Type: BLOOD SPECIMEN Ordering Facility: [facility] Address: [address] [place] [address] Performed By: #### 3 1201-7, 5195-3, 39826-8, SYPH #### [facility] CLIA [id number] [address] [place] [address] [place] Immature granulocytes/100 WBC (Bld) 0.8 % Normal [facility] Comment on above: Order Comment: Speci men Type: BLOOD SPECIMEN Ordering Facility: [facility] Address: [address] [place] [address] Performed By: #### 3 1201-7, 5195-3, 48431-8, SYPH #### [facility] CLIA [id number] [address] [place] [address] [place] Lymphocytes (Bld) [#/Vol] 2.59 10*3/uL Normal 1.00-4.00 [facility] Comment on above: Order Comment: Speci men Type: BLOOD SPECIMEN Ordering Facility: [facility] Address: [address] [place] [address] Performed By: #### 3 1201-7, 5194-3, 47523-8, SYPH #### [facility] CLIA [id number] [address] [place] [address] [place] Lymphocytes/100 WBC (Bld) 19.8 % Normal [facility] Comment on above: Order Comment: Speci men Type: BLOOD SPECIMEN Ordering Facility: [facility] Address: [address] [address] Performed By: #### 3 1201-7, 5195-3, 44692-2, SYPH #### [facility] CLIA [id number] [address] [place] [address] [place] MCH (RBC) [Entitic mass] 29.1 pg Normal 26.0-34.0 [facility] Comment on above: Order Comment: Speci men Type: BLOOD SPECIMEN Ordering Facility: [facility] Address: [address] [place] [address] Performed By: #### 3 1201-7, 5195-3, 69656-5, SYPH #### [facility] CLIA [id number] [address] [place] [address] [place] MCHC (RBC) [Mass/Vol] 32.9 g/dL Normal 30.5-36.0 [facility] Comment on above: Order Comment: Speci men Type: BLOOD SPECIMEN Ordering Facility: [facility] Address: [address] [place] [address] Performed By: #### 3 1201-7, 5195-3, 37806-5, SYPH #### [facility] CLIA [id number] [address] [place] [address] [place] MCV (RBC) [Entitic vol] 88.5 fL Normal 80.0-100.0 [facility] Comment on above: Order Comment: Speci men Type: BLOOD SPECIMEN Ordering Facility: [facility] Address: [address] [place] [address] Performed By: #### 3 1201-7, 5195-3, 79411-4, SYPH #### [facility] CLIA [id number] [address] [place] [address] [place] Monocytes (Bld) [#/Vol] 0.76 10*3/uL Normal <0.87 [facility] Comment on above: Order Comment: Speci men Type: BLOOD SPECIMEN Ordering Facility: [facility] Address: [address] Performed By: #### 3 1201-7, 5195-3, 30232-4, SYPH #### [facility] CLIA [id number] [address] [place] [address] [place] Monocytes/100 WBC (Bld) 5.8 % Normal [facility] Comment on above: Order Comment: Speci men Type: BLOOD SPECIMEN Ordering Facility: [facility] Address: [address] [address] Performed By: #### 3 1201-7, 5195-3, 52335-3, SYPH #### [facility] CLIA [id number] [address] [place] [address] [place] Neutrophils (Bld) [#/Vol] 9.56 10*3/uL High 1.45-7.50 [facility] Comment on above: Order Comment: Speci men Type: BLOOD SPECIMEN Ordering Facility: [facility] Address: [address] [address] Performed By: #### 3 1201-7, 5195-3, 82705-9, SYPH #### [facility] CLIA [id number] [address] [place] [address] [place] Neutrophils/100 WBC (Bld) 73.0 % Normal [facility] Comment on above: Order Comment: Speci men Type: BLOOD SPECIMEN Ordering Facility: [facility] Address: [address] Performed By: #### 3 1201-7, 5195-3, 89270-8, SYPH #### [facility] CLIA [id number] [address] [place], [place] [address] [place] Nucleated RBC (Bld) [#/Vol] 10*3/uL Normal <0.01 [facility] Comment on above: Order Comment: Speci men Type: BLOOD SPECIMEN Ordering Facility: [facility] Address: [address] [address] Performed By: #### 3 1201-7, 5195-3, 66223-2, SYPH #### [facility] CLIA [id number] [address] [place] [address] [place] Nucleated RBC/100 WBC (Bld) [Ratio] 0.0 /100 WBC Normal [facility] Comment on above: Order Comment: Speci men Type: BLOOD SPECIMEN Ordering Facility: [facility] Address: [address] [place] [address] Performed By: #### 3 1201-7, 5195-3, 68169-1, SYPH #### [facility] CLIA [id number] [address] [place] [address] [place] Platelet mean volume (Bld) [Entitic vol] 12.0 fL Normal 9.0-12.7 [facility] Comment on above: Order Comment: Speci men Type: BLOOD SPECIMEN Ordering Facility: [facility] Address: [address] [place] [address] Performed By: #### 3 1201-7, 5195-3, 11504-3, SYPH #### [facility] CLIA [id number] [address] [place] [address] [place] Platelets (Bld) [#/Vol] 180 10*3/uL Normal 150-400 [facility] Comment on above: Order Comment: Speci men Type: BLOOD SPECIMEN Ordering Facility: [facility] Address: [address] [place] [address] Performed By: #### 3 1201-7, 5-3, 20586-1, SYPH #### [facility] CLIA [id number] [address] [place] [address] [place] RBC (Bld) [#/Vol] 4.95 10*6/uL Normal 3.90-5.20 [facility] Comment on above: Order Comment: Speci men Type: BLOOD SPECIMEN Ordering Facility: [facility] Address: [address] [place] [address] Performed By: #### 3 1201-7, 5195-3, 67744-3, SYPH #### [facility] CLIA [id number] [address] [place] [address] [place] WBC (Bld) [#/Vol] 13.10 10*3/uL High 3.70-11.00 [facility] Comment on above: Order Comment: Speci men Type: BLOOD SPECIMEN Ordering Facility: [facility] Address: [place] [address] Performed By: #### 3 1201-7, 5195-3, 71808-6, [facility] #### [facility] CLIA [id number] [address] [id number] [place] CT ABD/PEL W IVCONon 023 CT ABD/PEL W IVCON * * *Final Report* * * DATE OF EXAM: Apr 06 2023 12:56AM [facility] 0530 - CT ABD/PEL W IVCON [...] Likely right lower quadrant ventral injection sites/granuloma. Second Baker (topogram) images: No additional findings. IMPRESSION: 1. No acute abnormality. Director Of Preclinical Research: PSCB Transcribe Date/Time: Apr 06 2023 1:25A Dictated by : LIANG SLAUGHTER MD This examination was interpreted and the report reviewed and electronically signed by: LIANG SLAUGHTER MD on Apr 06 2023 1:30AM EST [id number] Normal [facility] Comprehensive metabolic 2000 panelon 04-06-2023 Albumin [Mass/Vol] 4.2 g/dL Normal 3.2-5.0 [facility] Comment on above: Order Comment: Speci jeb Type: BLOOD SPECIMEN Ordering Facility: [facility] Address: [address] [place], [place] [id number] Performed By: #### 3 1201-7, 5195-3, 36266-8, SYPH #### [facility] CLIA [id number] [address] [place] [address] [place] ALP [Catalytic activity/Vol] 85 U/L Normal 45-117 [facility] Comment on above: Order Comment: Speci men Type: BLOOD SPECIMEN Ordering Facility: [facility] Address: [address] [place], [place] [address] Performed By: #### 3 1201-7, 5195-3, 55443-2, SYPH #### [facility] CLIA [id number] [address] [place] [address] [place] ALT [Catalytic activity/Vol] 87 U/L High 13-61 [facility] Comment on above: Order Comment: Jon russ Type: BLOOD SPECIMEN Ordering Facility: [facility] Address: [address] [place], [place] [id number] Result Comment: Resu lts may be falsely depressed after the administration of Sulfasalazine and/or Sulfapyridine. Performed By: #### 3 1201-7, 5195-3, 23566-8, SYPH #### [facility] CLIA [id number] [address] [place] [address] [place] Anion gap [Moles/Vol] 8 mmol/L Normal 5-16 [facility] Comment on above: Order Comment: Speci men Type: BLOOD SPECIMEN Ordering Facility: [facility] Address: [address] [place] [address] Performed By: #### 3 1201-7, 5195-3, 97228-6, SYPH #### [facility] CLIA [id number] [address] [place] [address] [place] AST [Catalytic activity/Vol] 60 U/L High 8-34 [facility] Comment on above: Order Comment: Speci men Type: BLOOD SPECIMEN Ordering Facility: [facility] Address: [address] [place] [address] Result Comment: Resu lts may be falsely depressed after the administration of Sulfasalazine and/or Sulfapyridine. Performed By: #### 3 1201-7, 5195-3, 73191-6, SYPH #### [facility] CLIA [id number] [address] [place] [address] [place] Bilirubin [Mass/Vol] 0.7 mg/dL Normal 0.2-1.0 [facility] Comment on above: Order Comment: Speci men Type: BLOOD SPECIMEN Ordering Facility: [facility] Address: [address] [place] [address] Performed By: #### 3 1201-7, 5195-3, 45477-0, SYPH #### [facility] CLIA [id number] [address] [place] [address] [place] Calcium [Mass/Vol] 9.6 mg/dL Normal 8.5-10.5 [facility] Comment on above: Order Comment: Speci men Type: BLOOD SPECIMEN Ordering Facility: [facility] Address: [address] [place] [address] Performed By: #### 3 1201-7, 5195-3, 46942-4, SYPH #### [facility] CLIA [id number] [address] [place] [address] [place] Chloride [Moles/Vol] 107 mmol/L Normal 98-107 [facility] Comment on above: Order Comment: Speci men Type: BLOOD SPECIMEN Ordering Facility: [facility] Address: [address] Performed By: #### 3 1201-7, 5195-3, 09257-2, SYPH #### [facility] CLIA [id number] [address] [place] [address] [place] CO2 [Moles/Vol] 26 mmol/L Normal 21-32 [facility] Comment on above: Order Comment: Speci men Type: BLOOD SPECIMEN Ordering Facility: [facility] Address: [address] [address] Performed By: #### 3 1201-7, 5195-3, 32339-4, SYPH #### [facility] CLIA [id number] [address] [place] [address] [place] Creatinine [Mass/Vol] 0.69 mg/dL Normal 0.51-0.95 [facility] Comment on above: Order Comment: Speci men Type: BLOOD SPECIMEN Ordering Facility: [facility] Address: [address] [place] [address] Result Comment: Cleopatra ents receiving either N-Acetylcysteine (NAC) or Metamizole prior to venipuncture, may have falsely depressed results. Performed By: #### 3 1201-7, 5195-3, 85689-0, SYPH #### [facility] CLIA [id number] [address] [place] [address] OF [facility] ESTIMATED GLOMERULAR FILTRATION RATE 121 mL/min/1.73m??? Normal >=60 [facility] Comment on above: Order Comment: Speci men Type: BLOOD SPECIMEN Ordering Facility: [facility] Address: [address] [place] [address] Result Comment: Janett mated Glomerular Filtration Rate [...] GFR. Performed By: #### 3 1201-7, 5195-3, 52842-2, SYPH #### [facility] CLIA [id number] [address] [place], [place] [address] [place] Glucose [Mass/Vol] 79 mg/dL Normal 70-100 [facility] Comment on above: Order Comment: Jon russ Type: BLOOD SPECIMEN Ordering Facility: [facility] Address: [address] [place], [place] [id number] Result Comment: The [place] [employer] (ADA) provides guidance for cutoff [...] Standards of Medical Care in Diabetes 2016, [place] [employer]. Diabetes Care. 2016.39(Suppl 1). Results may be falsely elevated after the administration of Sulfapyridine. Results may be falsely depressed after the administration of Sulfasalazine. Performed By: #### 3 1201-7, 5195-3, 01479-9, SYPH #### [facility] CLIA [id number] [address] [place], [place] [address] [place] Potassium [Moles/Vol] 4.0 mmol/L Normal 3.5-5.1 [facility] Comment on above: Order Comment: Jon russ Type: BLOOD SPECIMEN Ordering Facility: [facility] Address: [place] [address] Performed By: #### 3 1201-7, 5195-3, 81272-5, SYPH #### [facility] CLIA [id number] [address] [place], [place] [address] [place] Protein [Mass/Vol] 7.2 g/dL Normal 6.0-8.5 [facility] Comment on above: Order Comment: Speci men Type: BLOOD SPECIMEN Ordering Facility: [facility] Address: [address] [place], [place] [id number] Performed By: #### 3 1201-7, 5195-3, 57962-5, SYPH #### [facility] CLIA [id number] [address] [place] [address] Sodium [Moles/Vol] 141 mmol/L Normal 136-145 [facility] Comment on above: Order Comment: Speci men Type: BLOOD SPECIMEN Ordering Facility: [facility] Address: [address] [place], [place] [phone] Performed By: #### 3 1201-7, 5195-3, 24158-4, SYPH #### [facility] CLIA [id number] [address] [place] [address] Urea nitrogen [Mass/Vol] 15 mg/dL Normal 7-26 [facility] Comment on above: Order Comment: Speci men Type: BLOOD SPECIMEN Ordering Facility: [facility] Address: [address] [place], [place] [id number] Performed By: #### 3 1201-7, 5195-3, 05904-3, SYPH #### [facility] CLIA [id number] [address] [place] [address] ED PROV NOTEon 04-06-2023 ED PROV NOTE HNO ID: [id number] Author: Greg Zimmerman DO Service: Emergency Medicine [...] GREG ZIMMERMAN 04/06/23 0236 GREG ZIMMERMAN 04/06/234 [facility] ED PROV NOTE HNO ID: [id number] Author: Jorge Alberto Nj MD Service: ? [...] be ki (more content not included)... Normal [facility] ED Triage Noteon 04-06-2023 ED Triage Note HNO ID: [id number] Author: Merced Mora PA-C Service: ? Author Type: Physician Development Analyst Type: ED Triage Notes Filed: 04/05/2023 [...] CMP Urinalysis SIGNATURE: Merced Mora PA-C Normal [facility] HCG QUAL BLDon 04-06-2023 HCG, QUALITATIVE Negative Normal Negative [facility] Comment on above: Order Comment: Speci men Type: BLOOD SPECIMEN Ordering Facility: [facility] Address: [address] [place] [address] Performed By: #### 3 1201-7, 5195-3, 70523-3, SYPH #### [facility] CLIA [id number] [address] [place] [address] OF [place] Urinalysis complete panel (U )on 04-06-2023 Bacteria LM.HPF (Urine sed) [#/Area] Rare Abnormal None Seen [facility] Comment on above: Order Comment: Speci men Type: BLOOD SPECIMEN Ordering Facility: [facility] Address: [address] [place] [address] Performed By: #### 3 1201-7, 5195-3, 18603-7, SYPH #### [facility] CLIA [id number] [address] [place] [address] [place] Bilirubin Ql (U) Negative Normal Negative [facility] Comment on above: Order Comment: Speci men Type: BLOOD SPECIMEN Ordering Facility: [facility] Address: [address] [place] [address] Performed By: #### 3 1201-7, 5-3, 23760-8, SYPH #### [facility] CLIA [id number] [address] [place] [address] [place] Clarity (Unsp spec) Clear Normal Clear [facility] Comment on above: Order Comment: Speci men Type: BLOOD SPECIMEN Ordering Facility: [facility] Address: [address] [place] [address] Performed By: #### 3 1201-7, 5195-3, 61854-0, SYPH #### [facility] CLIA [id number] [address] [place] [address] [place] Color (U) Yellow Normal Yellow [facility] Comment on above: Order Comment: Speci men Type: BLOOD SPECIMEN Ordering Facility: [facility] Address: [address] [address] Performed By: #### 3 1201-7, 5195-3, 63451-2, SYPH #### [facility] CLIA [id number] [address] [place] [address] [place] Epithelial cells LM.HPF (Urine sed) [#/Area] Many Normal [facility] Comment on above: Order Comment: Speci men Type: BLOOD SPECIMEN Ordering Facility: [facility] Address: [address] [address] Performed By: #### 3 1201-7, 5-3, 55767-3, SYPH #### [facility] CLIA [id number] [address] [place] [address] [place] Glucose Test strip (U) [Mass/Vol] Negative Normal Negative [facility] Comment on above: Order Comment: Speci men Type: BLOOD SPECIMEN Ordering Facility: [facility] Address: [address] [place] [address] Performed By: #### 3 1201-7, 5-3, 40117-7, SYPH #### [facility] CLIA [id number] [address] [place] [address] [place] Hemoglobin Ql (U) Negative Normal Negative [facility] Comment on above: Order Comment: Speci men Type: BLOOD SPECIMEN Ordering Facility: [facility] Address: [address] [place] [address] Performed By: #### 3 1201-7, 5-3, 63769-9, SYPH #### [facility] CLIA [id number] [address] [place] [address] [place] Ketones Ql (U) Trace Abnormal Negative [facility] Comment on above: Order Comment: Speci men Type: BLOOD SPECIMEN Ordering Facility: [facility] Address: [address] [address] Performed By: #### 3 1201-7, 5-3, 41296-9, SYPH #### [facility] CLIA [id number] [address] [place] [address] Leukocyte esterase Test strip Ql (U) 1+ Abnormal Negative [facility] Comment on above: Order Comment: Speci men Type: BLOOD SPECIMEN Ordering Facility: [facility] Address: [address] [place] [address] Performed By: #### 3 1201-7, 5195-3, 56209-4, SYPH #### [facility] CLIA [id number] [address] [place] [address] [place] Nitrite Ql (U) Negative Normal Negative [facility] Comment on above: Order Comment: Speci men Type: BLOOD SPECIMEN Ordering Facility: [facility] Address: [address] [place] [address] Performed By: #### 3 1201-7, 5195-3, 74667-7, SYPH #### [facility] CLIA [id number] [address] [place] [address] [place] pH (U) 5.0 [pH] Normal 5.0-8.0 [facility] Comment on above: Order Comment: Speci men Type: BLOOD SPECIMEN Ordering Facility: [facility] Address: [address] [place] [address] Performed By: #### 3 1201-7, 5-3, 84243-7, SYPH #### [facility] CLIA [id number] [address] [place] [address] [place] Protein (U) [Mass/Vol] Negative Normal Negative [facility] Comment on above: Order Comment: Speci men Type: BLOOD SPECIMEN Ordering Facility: [facility] Address: [address] [place] [address] Performed By: #### 3 1201-7, 5-3, 73111-2, SYPH #### [facility] CLIA [id number] [address] [place] [address] [place] RBC LM.HPF (Urine sed) [#/Area] 3-5 /HPF Abnormal 0-3 /HPF [facility] Comment on above: Order Comment: Speci men Type: BLOOD SPECIMEN Ordering Facility: [facility] Address: [address] [place] [address] Performed By: #### 3 1201-7, 5195-3, 23520-8, SYPH #### [facility] CLIA [id number] [address] [place] [address] Specific gravity (U) [Rel density] >1.030 High 1.005-1.030 [facility] Comment on above: Order Comment: Speci men Type: BLOOD SPECIMEN Ordering Facility: [facility] Address: [address] [place] [address] Performed By: #### 3 1201-7, 5195-3, 31237-5, SYPH #### [facility] CLIA [id number] [address] [place] [address] Urobilinogen Ql (U) Negative Normal Negative [facility] Comment on above: Order Comment: Speci men Type: BLOOD SPECIMEN Ordering Facility: [facility] Address: [address] [place] [address] Performed By: #### 3 1201-7, 5195-3, 11809-6, SYPH #### [facility] CLIA [id number] [address] [place] [address] WBC LM.HPF (Urine sed) [#/Area] 6-10 /HPF Abnormal 0-5 /HPF [facility] Comment on above: Order Comment: Speci men Type: BLOOD SPECIMEN Ordering Facility: [facility] Address: [address] [place] [address] Performed By: #### 3 1201-7, 5195-3, 85277-5, SYPH #### [facility] CLIA [id number] [address] [place] [address] ED NOTEon 04-05-2023 ED NOTE HNO ID: [id number] Author: Ten Mao RN Service: Nursing Author Type: Registered Nurse Type: ED Notes Filed: 04/05/2023 9:44 PM Note Text: PT presents to ED with c/o left hip pain, back pain and pelvic pain. Reports hip pain started first this morning. Pain now radiating into back and pelvic area. Endorses nausea. Normal [facility] Basic metabolic 2000 panelon 03-22-2023 Anion gap [Moles/Vol] 7 mmol/L Low 10 - 20 mmol/L [facility] Calcium [Mass/Vol] 8.0 mg/dL Low 8.4 - 10. 2 mg/dL [facility] Chloride [Moles/Vol] 110 mmol/L High 98 - 10 8 mmol/L [facility] Creatinine [Mass/Vol] 0.81 mg/dL 0.40 - 1.10 mg/dL [facility] GFR/1.73 sq M.predicted CKD-EPI (S/P/Bld) [Vol rate/Area] 102 - PINF [facility] Comment on above: Estimated GFR was ca lculated using the 2020 CKD-EPI creatinine equation. Glucose [Mass/Vol] 251 mg/dL High 65 - 99 mg/dL [facility] [facility] HCO3 [Moles/Vol] 26 mmol/L 21 - 32 mmol/L [facility] Interpretation and review of laboratory results Abnormal [facility] Potassium [Moles/Vol] 3.2 mmol/L Low 3.5 - 5.1 mmol/L [facility] Sodium [Moles/Vol] 140 mmol/L 135 - 145 mmol/L [facility] Urea nitrogen [Mass/Vol] 8 mg/dL 8 - 25 mg/dL [facility] Urea nitrogen/Creatinine [Mass ratio] 9.9 mg/mg Low 10.0 - 20.0 [facility] has implemented the eGFR calculation approach that does not have a coefficient for race that conforms to the NKF-ASN Task Force Recommendations. [facility] CBC Auto Differentialon 02-26 Basophils (Bld) [#/Vol] 0.02 10*3/uL [facility] Basophils/100 WBC (Bld) 0.2 % [facility] Eosinophils (Bld) [#/Vol] 0.04 10*3/uL [facility] Eosinophils/100 WBC (Bld) 0.4 % [facility] Erythrocyte distribution width (RBC) [Entitic vol] 13.9 % 11.6 - 14.8 % [facility] Hematocrit (Bld) [Volume fraction] 37.4 % 36.0 - 46.0 % [facility] Hemoglobin (Bld) [Mass/Vol] 12.4 g/dL 12.0 - 16.0 g/dL [facility] Immature granulocytes (Bld) [#/Vol] 0.07 10*3/uL [facility] Immature granulocytes/100 WBC (Bld) 0.70 % [facility] Comment on above: The IG parameter is the percentage of metamyelocytes, myelocytes and promyelocytes. An immature granulocyte count (IG) of 1% or more suggests the possibility of infection, an IG count of 3% is very likely related to an infection. Lymphocytes (Bld) [#/Vol] 2.55 10*3/uL [facility] Lymphocytes/100 WBC (Bld) 27.1 % [facility] MCH (RBC) [Entitic mass] 29.1 pg 26.0 - 34.0 pg [facility] MCHC (RBC) [Mass/Vol] 33.2 g/dL 31.0 - 37.0 g/dL [facility] MCV (RBC) [Entitic vol] 87.8 fL 80.0 - 100.0 fL [facility] Monocytes (Bld) [#/Vol] 0.57 10*3/uL [facility] Monocytes/100 WBC (Bld) 6.1 % [facility] Neutrophils (Bld) [#/Vol] 6.16 10*3/uL [facility] Neutrophils/100 WBC (Bld) 65.5 % [facility] Nucleated RBC (Bld) [#/Vol] 0.00 10*3/uL [facility] Nucleated RBC/100 WBC (Bld) [Ratio] 0.0 % [facility] Platelet mean volume (Bld) [Entitic vol] 11.8 fL 9.4 - 12.4 fL [facility] Platelets (Bld) [#/Vol] 165 10*3/uL [facility] RBC (Bld) [#/Vol] 4.26 10*6/uL [facility] WBC (Bld) [#/Vol] 9.41 10*3/uL [facility] Glucose (Bld) [Mass/Vol]on 0 03-22-2023 Glucose [Mass/Vol] 101 mg/dL High 65 - 99 mg/dL [facility] Interpretation and review of laboratory results Abnormal [facility] Glucose [Mass/Vol] 117 mg/dL High 65 - 99 mg/dL [facility] Interpretation and review of laboratory results Abnormal [facility] Glucose [Mass/Vol] 182 mg/dL High 65 - 99 mg/dL [facility] Interpretation and review of laboratory results Abnormal [facility] Glucose [Mass/Vol] 168 mg/dL High 65 - 99 mg/dL [facility] Interpretation and review of laboratory results Abnormal [facility] Glucose [Mass/Vol] 77 mg/dL 65 - 99 mg/dL [facility] Interpretation and review of laboratory results Normal [facility] Glucose [Mass/Vol] 42 mg/dL Low 65 - 99 mg/dL [facility] Interpretation and review of laboratory results Abnormal [facility] Magnesium Levelon 03-22-2023 Magnesium [Mass/Vol] 2.0 mg/dL 1.6 - 2 .4 mg/dL [facility] Magnesium [Mass/Vol]on 03-22 Interpretation and review of laboratory results Normal [facility] No Panel Informationon 03-22 [facility] Phosphate [Mass/Vol]on 03-22 Interpretation and review of laboratory results Abnormal [facility] Phosphoruson 03-22-2023 Phosphate [Mass/Vol] 2.4 mg/dL Low 2.7 - 4 .5 mg/dL [facility] CBC panel Auto (Bld)on 03-21 Erythrocyte distribution width (RBC) [Entitic vol] 14.0 % 11.6 - 14.8 % [facility] Hematocrit (Bld) [Volume fraction] 35.7 % Low 36.0 - 46.0 % [facility] Hemoglobin (Bld) [Mass/Vol] 11.7 g/dL Low 12.0 - 16.0 g/dL [facility] Interpretation and review of laboratory results Abnormal [facility] MCH (RBC) [Entitic mass] 29.2 pg 26.0 - 34.0 pg [facility] MCHC (RBC) [Mass/Vol] 32.8 g/dL 31.0 - 37.0 g/dL [facility] MCV (RBC) [Entitic vol] 89.0 fL 80.0 - 100.0 fL [facility] Nucleated RBC (Bld) [#/Vol] 0.00 10*3/uL [facility] Nucleated RBC/100 WBC (Bld) [Ratio] 0.0 % [facility] Platelet mean volume (Bld) [Entitic vol] 12.9 fL High 9.4 - 12.4 fL [facility] Platelets (Bld) [#/Vol] 169 10*3/uL [facility] RBC (Bld) [#/Vol] 4.01 10*6/uL [facility] WBC (Bld) [#/Vol] 20.82 10*3/uL [facility] Comprehensive metabolic 2000 panelon 03-21-2023 Albumin [Mass/Vol] 3.3 g/dL 3.2 - 5.2 g/dL [facility] ALP [Catalytic activity/Vol] 71 U/L 40 - 140 U/L [facility] ALT [Catalytic activity/Vol] 20 U/L 14 - 65 U/L [facility] Anion gap [Moles/Vol] 16 mmol/L 10 - 20 mmol/L [facility] AST [Catalytic activity/Vol] 10 U/L 0 - 45 U/L [facility] Bilirubin [Mass/Vol] 0.8 mg/dL 0.0 - 1 .3 mg/dL [facility] Calcium [Mass/Vol] 8.4 mg/dL 8.4 - 10. 2 mg/dL [facility] Chloride [Moles/Vol] 111 mmol/L High 98 - 10 8 mmol/L [facility] Creatinine [Mass/Vol] 0.81 mg/dL 0.40 - 1.10 mg/dL [facility] GFR/1.73 sq M.predicted CKD-EPI (S/P/Bld) [Vol rate/Area] 102 - PINF [facility] Comment on above: Estimated GFR was ca lculated using the 2020 CKD-EPI creatinine equation. Glucose [Mass/Vol] 162 mg/dL High 65 - 99 mg/dL [facility] HCO3 [Moles/Vol] 18 mmol/L Low 21 - 32 mmol/L [facility] Interpretation and review of laboratory results Abnormal [facility] Potassium [Moles/Vol] 3.6 mmol/L 3.5 - 5.1 mmol/L [facility] Protein [Mass/Vol] 6.3 g/dL 6.0 - 8.0 g/dL [facility] Sodium [Moles/Vol] 141 mmol/L 135 - 145 mmol/L [facility] Urea nitrogen [Mass/Vol] 11 mg/dL 8 - 25 mg/dL [facility] Urea nitrogen/Creatinine [Mass ratio] 13.6 mg/mg 10.0 - 20.0 [facility] has implemented the eGFR calculation approach that does not have a coefficient for race that conforms to the NKF-ASN Task Force Recommendations. [facility] Glucose (Bld) [Mass/Vol]on 0 03-21-2023 Glucose [Mass/Vol] 179 mg/dL High 65 - 99 mg/dL [facility] Interpretation and review of laboratory results Abnormal [facility] Glucose [Mass/Vol] 102 mg/dL High 65 - 99 mg/dL [facility] Interpretation and review of laboratory results Abnormal [facility] Glucose [Mass/Vol] 80 mg/dL 65 - 99 mg/dL [facility] Interpretation and review of laboratory results Normal [facility] Glucose [Mass/Vol] 113 mg/dL High 65 - 99 mg/dL [facility] Interpretation and review of laboratory results Abnormal [facility] Magnesiumon 03-21-2023 Magnesium [Mass/Vol] 2.4 mg/dL 1.6 - 2 .4 mg/dL [facility] Magnesium [Mass/Vol]on 03-21 Interpretation and review of laboratory results Normal [facility] No Panel Informationon 03-21 [facility] Phosphate [Mass/Vol]on 03-21 Interpretation and review of laboratory results Normal [facility] Phosphoruson 03-21-2023 Phosphate [Mass/Vol] 2.7 mg/dL 2.7 - 4 .5 mg/dL [facility] Basic metabolic 1998 panelon 03-20-2023 Anion gap [Moles/Vol] 12 mmol/L 10 - 20 mmol/L [facility] Chloride [Moles/Vol] 108 mmol/L 98 - 10 8 mmol/L [facility] Creatinine [Mass/Vol] 0.98 mg/dL 0.40 - 1.10 mg/dL [facility] GFR/1.73 sq M.predicted CKD-EPI (S/P/Bld) [Vol rate/Area] 81 - PINF [facility] Comment on above: Estimated GFR was ca lculated using the 2020 CKD-EPI creatinine equation. Glucose [Mass/Vol] 247 mg/dL High 65 - 99 mg/dL [facility] HCO3 [Moles/Vol] 24 mmol/L 21 - 32 mmol/L [facility] Potassium [Moles/Vol] 3.5 mmol/L 3.5 - 5.1 mmol/L [facility] Sodium [Moles/Vol] 140 mmol/L 135 - 145 mmol/L [facility] Urea nitrogen [Mass/Vol] 15 mg/dL 8 - 25 mg/dL [facility] Urea nitrogen/Creatinine [Mass ratio] 15.3 mg/mg 10.0 - 20.0 [facility] has implemented the eGFR calculation approach that does not have a coefficient for race that conforms to the NKF-ASN Task Force Recommendations. [facility] Basic metabolic 2000 panelon 03-20-2023 Anion gap [Moles/Vol] 13 mmol/L 10 - 20 mmol/L [facility] Calcium [Mass/Vol] 8.1 mg/dL Low 8.4 - 10. 2 mg/dL [facility] Chloride [Moles/Vol] 106 mmol/L 98 - 10 8 mmol/L [facility] Creatinine [Mass/Vol] 0.86 mg/dL 0.40 - 1.10 mg/dL [facility] GFR/1.73 sq M.predicted CKD-EPI (S/P/Bld) [Vol rate/Area] 95 - PINF [facility] Comment on above: Estimated GFR was ca lculated using the 2020 CKD-EPI creatinine equation. Glucose [Mass/Vol] 316 mg/dL High 65 - 99 mg/dL [facility] HCO3 [Moles/Vol] 21 mmol/L 21 - 32 mmol/L [facility] Interpretation and review of laboratory results Abnormal [facility] Potassium [Moles/Vol] 4.0 mmol/L 3.5 - 5.1 mmol/L [facility] Sodium [Moles/Vol] 136 mmol/L 135 - 145 mmol/L [facility] Urea nitrogen [Mass/Vol] 12 mg/dL 8 - 25 mg/dL [facility] Urea nitrogen/Creatinine [Mass ratio] 14.0 mg/mg 10.0 - 20.0 [facility] has implemented the eGFR calculation approach that does not have a coefficient for race that conforms to the NKF-ASN Task Force Recommendations. [facility] Beta HCG ( test) Ql on 03-20-2023 Interpretation and review of laboratory results Normal [facility] Negative: The result is less than or equal to 5 mIU/mL of HCG. [facility] Beta hydroxybutyrate [Moles/ Vol]on 03-20-2023 Interpretation and review of laboratory results Abnormal [facility] Beta-Hydroxybutyrateon 03-20 Beta hydroxybutyrate [Moles/Vol] 1.8 mmol/L High 0.0 - 0.3 mmol/L [facility] CBC Auto Differentialon 02-26 Basophils (Bld) [#/Vol] 0.04 10*3/uL [facility] Basophils/100 WBC (Bld) 0.4 % [facility] Eosinophils (Bld) [#/Vol] 0.03 10*3/uL [facility] Eosinophils/100 WBC (Bld) 0.3 % [facility] Erythrocyte distribution width (RBC) [Entitic vol] 13.7 % 11.6 - 14.8 % [facility] Hematocrit (Bld) [Volume fraction] 38.9 % 36.0 - 46.0 % [facility] Hemoglobin (Bld) [Mass/Vol] 13.0 g/dL 12.0 - 16.0 g/dL [facility] Immature granulocytes (Bld) [#/Vol] 0.08 10*3/uL [facility] Immature granulocytes/100 WBC (Bld) 0.80 % [facility] Comment on above: The IG parameter is the percentage of metamyelocytes, myelocytes and promyelocytes. An immature granulocyte count (IG) of 1% or more suggests the possibility of infection, an IG count of 3% is very likely related to an infection. Interpretation and review of laboratory results Abnormal [facility] Lymphocytes (Bld) [#/Vol] 2.45 10*3/uL [facility] Lymphocytes/100 WBC (Bld) 23.6 % [facility] MCH (RBC) [Entitic mass] 29.0 pg 26.0 - 34.0 pg [facility] MCHC (RBC) [Mass/Vol] 33.4 g/dL 31.0 - 37.0 g/dL [facility] MCV (RBC) [Entitic vol] 86.6 fL 80.0 - 100.0 fL [facility] Monocytes (Bld) [#/Vol] 0.62 10*3/uL [facility] Monocytes/100 WBC (Bld) 6.0 % [facility] Neutrophils (Bld) [#/Vol] 7.17 10*3/uL High [facility] Neutrophils/100 WBC (Bld) 68.9 % [facility] Nucleated RBC (Bld) [#/Vol] 0.00 10*3/uL [facility] Nucleated RBC/100 WBC (Bld) [Ratio] 0.0 % [facility] Platelet mean volume (Bld) [Entitic vol] 12.5 fL High 9.4 - 12.4 fL [facility] Platelets (Bld) [#/Vol] 160 10*3/uL [facility] RBC (Bld) [#/Vol] 4.49 10*6/uL [facility] ealt WBC (Bld) [#/Vol] 10.39 10*3/uL [facility] CT ANGIOGRAM CHEST ABDOMEN P Caitlin 03-20-2023 [...] MonMar 20, 2023 10:29:33 AM EDT [facility] Comment on above: Order Comment: Injur y/Trauma or Illness?:Illness/Other How long have you had these symptoms (acute/chronic)?:Acute Reason for exam?:chest and abd pain, vomiting Type of Exam?:Initial Additional signs and symptoms?: CT Angiogram Chest Abdomen P [facility] 03-20-2023 1. No acute thoracoabdominal aortic [...] surgical clips. NTP/cdr Workstation ID: [id number] [facility] CT ANGIOGRAM CHEST ABDOMEN PELVIS HISTORY: [...] Abdominal wall structures appear to be intact. [employer] David Kulkarni, DO - 03/20/2023 EXAMINATION: CT [...] appendectomy surgical clips. NTP/cdr Workstation ID: [id number] [facility] Radiology Study observation (narrative) [facility] CT Angiogram Chest Abdomen P elvisOrdered By: David Moura on 03-20-2023 [facility] Work Phone: ECG 12 Leadon [...] Clinical impression: non-specific ECG and sinus bradycardia [facility] EKGon 03-20-2023 [facility] EKG 12-leadon 03-20-2023 Atrial Rate 56 BPM [facility] P [place] 9 degrees [facility] P-R Interval 130 ms [facility] Q-T Interval 514 ms [facility] QRS Duration 108 ms [facility] QTC Calculation (Bezet) 496 ms [facility] R [place] 51 degrees [facility] T [place] 42 degrees [facility] Ventricular Rate 56 BPM [facility] th Sinus bradycardia wi th sinus arrhythmia Prolonged QT Abnormal ECG ECG Cart Interpretation see physician note for interpretation. Confirmed by Zita Dozier ([id number]) on 03/20/2023 1:39:42 PM MUSE [facility] Atrial Rate 73 BPM [facility] P [place] 45 degrees [facility] P-R Interval 136 ms [facility] Q-T Interval 398 ms [facility] QRS Duration 92 ms [facility] QTC Calculation (Bezet) 438 ms [facility] R [place] 83 degrees [facility] T [place] 53 degrees [facility] Ventricular Rate 73 BPM [facility] th Mariel Gagnon M D 03/21/2023 2:39 PM EKG 12-lead Date/Time: 03/20/2023 6:02 AM Performed by: Mariel Gagnon MD Authorized by: Mariel Gagnon MD Interpreted by ED attending physician Rhythm: sinus rhythm BPM: 73 QRS axis: normal Clinical impression: normal ECG MUSE [facility] Glucose (Bld) [Mass/Vol]on 0 03-20-2023 Glucose [Mass/Vol] 245 mg/dL High 65 - 99 mg/dL [facility] Interpretation and review of laboratory results Abnormal [facility] Glucose [Mass/Vol] 284 mg/dL High 65 - 99 mg/dL [facility] Interpretation and review of laboratory results Abnormal [facility] Glucose [Mass/Vol] 406 mg/dL Critically high 65 - 99 mg/d L [facility] Interpretation and review of laboratory results Abnormal [facility] Critical result acte d upon time of test. Test performed at bedside. [facility] HCG (QUALITATIVE)on 03-20-20 23 Beta HCG ( test) Ql Negative Negative [facility] HbA1c (Bld) [Mass fraction]O rdered By: Destinee Baez on 03-20-2023 Average glucose Estimated from glycated hemoglobin (Bld) [Mass/Vol] 160 mg/dL High 68 - 114 mg/dL [facility] Interpretation and review of laboratory results Abnormal [facility] Normal: 4.0% - 5.6% Increased risk for diabetes: 5.7% - 6.4% Diabetes: >= 6.5% Pediatrics: No established reference range Estimated average glucose: 68-114 mg/dL [facility] Hemoglobin [id number] By: Georgina Baez on 03-20-2023 HbA1c (Bld) [Mass fraction] 7.2 % High 4.0 - 5.6 % [facility] Hepatic function 2000 panelo n 03-20-2023 Albumin [Mass/Vol] 3.8 g/dL 3.2 - 5.2 g/dL [facility] ALP [Catalytic activity/Vol] 84 U/L 40 - 140 U/L [facility] ALT [Catalytic activity/Vol] 26 U/L 14 - 65 U/L [facility] AST [Catalytic activity/Vol] 13 U/L 0 - 45 U/L [facility] Bilirubin [Mass/Vol] 0.6 mg/dL 0.0 - 1 .3 mg/dL [facility] Bilirubin.conjugated [Mass/Vol] 0.1 mg/dL 0.0 - 0.4 mg/dL [facility] Interpretation and review of laboratory results Normal [facility] Protein [Mass/Vol] 7.2 g/dL 6.0 - 8.0 g/dL [facility] Light Blue Topon 03-20-2023 Extra Tube Hold for add-ons. [facility] Comment on above: Auto resulted. [facility] Lipaseon 03-20-2023 Lipase [Catalytic activity/Vol] 53 U/L Low 73 - 393 U/L [facility] Magnesium Levelon 03-20-2023 Magnesium [Mass/Vol] 1.8 mg/dL 1.6 - 2 .4 mg/dL [facility] Magnesium [Mass/Vol]on 03-20 Interpretation and review of laboratory results Normal [facility] No Panel Informationon 03-20 Interpretation and review of laboratory results Abnormal [facility] UrinalysisOrdered By: Alysha Ramos on 03-20-2023 Bacteria Auto Ql (U) None Seen None Seen /hpf [facility] Bilirubin Ql (U) Negative Negative [facility] Clarity Refractometry automated (U) Cloudy Abnormal Clear [facility] Color (U) Yellow Colorless, Yellow [facility] Glucose Auto test strip (U) [Mass/Vol] >=500 Abnormal Negative mg/dL [facility] Hemoglobin Auto test strip Ql (U) Negative Negative [facility] Interpretation and review of laboratory results Abnormal [facility] Ketones (U) [Mass/Vol] mg/dL Abnormal Negative mg/d L [facility] Leukocyte esterase Auto test strip Ql (U) Negative Negative [facility] h Mucus Auto (Urine sed) [#/Area] Rare None Seen, Rare /lpf [facility] Nitrite Auto test strip Ql (U) Negative Negative [facility] pH (U) 7.0 [pH] 5.0 - 7.0 [facility] Protein (U) [Mass/Vol] Negative Negative mg/d L [facility] RBC Auto (Urine sed) [#/Area] 1 [facility] Specific gravity (U) [Rel density] 1.023 1.005 - 1.025 [facility] Urobilinogen (U) [Mass/Vol] mg/dL NINF - 2.0 mg/dL [facility] WBC Auto (Urine sed) [#/Area] 3 [facility] Microscopic examination is performed on all urinalysis samples and only positive findings are reported. The test for blood on the chemical analytic portion of urinalysis may also be positive due to hemoglobinuria and myoglobinuria and if red blood cells are present they are quantified by microscopic examination. [facility] CNPNon 02-26-2023 CNPN Telephone (AKURFL) KATHLEEN VILLA ([id number]) 1995 F CHT Date Time Provider Department [...] Status:Closed by VERITO BORDEN on 02/26/23 Normal [facility] Basic metabolic 2000 panelon 02-04-2023 Anion gap [Moles/Vol] 8 mmol/L Normal 5-16 [facility] Comment on above: Order Comment: Speci men Type: BLOOD SPECIMEN Ordering Facility: [facility] Address: [address] [place] [address] Performed By: #### 3 1201-7, 5195-3, 64043-6, SYPH #### [facility] CLIA [id number] [address] [place] [address] [place] Calcium [Mass/Vol] 8.3 mg/dL Low 8.5-10.5 [facility] Comment on above: Order Comment: Speci men Type: BLOOD SPECIMEN Ordering Facility: [facility] Address: [address] [place] [address] Performed By: #### 3 1201-7, 5195-3, 38562-4, SYPH #### [facility] CLIA [id number] [address] [place] [address] [place] Chloride [Moles/Vol] 106 mmol/L Normal 98-107 [facility] Comment on above: Order Comment: Speci men Type: BLOOD SPECIMEN Ordering Facility: [facility] Address: [address] [place] [address] Performed By: #### 3 1201-7, 5195-3, 31965-4, SYPH #### [facility] CLIA [id number] [address] [place] [address] [place] CO2 [Moles/Vol] 27 mmol/L Normal 21-32 [facility] Comment on above: Order Comment: Speci men Type: BLOOD SPECIMEN Ordering Facility: [facility] Address: [address] [place] [address] Performed By: #### 3 1201-7, 5195-3, 85067-4, SYPH #### [facility] CLIA [id number] [address] [place] [address] [place] Creatinine [Mass/Vol] 0.58 mg/dL Normal 0.51-0.95 [facility] Comment on above: Order Comment: Speci men Type: BLOOD SPECIMEN Ordering Facility: [facility] Address: [address] [place] [address] Result Comment: Cleopatra ents receiving either N-Acetylcysteine (NAC) or Metamizole prior to venipuncture, may have falsely depressed results. Performed By: #### 3 1201-7, 5195-3, 45673-9, SYPH #### [facility] CLIA [id number] [address] [place] [address] [place] ESTIMATED GLOMERULAR FILTRATION RATE 127 mL/min/1.73m??? Normal >=60 [facility] Comment on above: Order Comment: Speci men Type: BLOOD SPECIMEN Ordering Facility: [facility] Address: [address] [place] [address] Result Comment: Janett mated Glomerular Filtration Rate [...] GFR. Performed By: #### 3 1201-7, 5195-3, 90880-6, SYPH #### [facility] CLIA [id number] [address] [place], [place] [id number] [place] Glucose [Mass/Vol] 271 mg/dL High 70-100 [facility] Comment on above: Order Comment: Speci men Type: BLOOD SPECIMEN Ordering Facility: [facility] Address: [address] [place] [address] Result Comment: The [place] [employer] (ADA) provides guidance for cutoff [...] Standards of Medical Care in Diabetes 2016, [place] [employer]. Diabetes Care. 2016.39(Suppl 1). Results may be falsely elevated after the administration of Sulfapyridine. Results may be falsely depressed after the administration of Sulfasalazine. Performed By: #### 3 1201-7, 5195-3, 47031-4, SYPH #### [facility] CLIA [id number] [address] [place] [address] [place] Potassium [Moles/Vol] 3.4 mmol/L Low 3.5-5.1 [facility] Comment on above: Order Comment: Jon russ Type: BLOOD SPECIMEN Ordering Facility: [facility] Address: [address] [place] [address] Performed By: #### 3 1201-7, 5195-3, 93276-1, SYPH #### [facility] CLIA [id number] [address] [place] [address] [place] Sodium [Moles/Vol] 141 mmol/L Normal 136-145 [facility] Comment on above: Order Comment: Jon russ Type: BLOOD SPECIMEN Ordering Facility: [facility] Address: [address] [place], [place] [address] Performed By: #### 3 1201-7, 5195-3, 16408-3, SYPH #### [facility] CLIA [id number] [address] [place] [address] [place] Urea nitrogen [Mass/Vol] 6 mg/dL Low 7-26 [facility] Comment on above: Order Comment: Speci men Type: BLOOD SPECIMEN Ordering Facility: [facility] Address: [address] [place] [address] Performed By: #### 3 1201-7, 5195-3, 36447-1, SYPH #### [facility] CLIA [id number] [address] [place] [address] [place] Anion gap [Moles/Vol] 7 mmol/L Normal 5-16 [facility] Comment on above: Order Comment: Speci men Type: BLOOD SPECIMEN Ordering Facility: [facility] Address: [address] [place] [address] Performed By: #### 3 1201-7, 5195-3, 99439-1, SYPH #### [facility] CLIA [id number] [address] [place] [address] [place] Calcium [Mass/Vol] 8.0 mg/dL Low 8.5-10.5 [facility] Comment on above: Order Comment: Speci men Type: BLOOD SPECIMEN Ordering Facility: [facility] Address: [address] [place] [address] Performed By: #### 3 1201-7, 5195-3, 68930-2, SYPH #### [facility] CLIA [id number] [address] [place] [address] [place] Chloride [Moles/Vol] 106 mmol/L Normal 98-107 [facility] Comment on above: Order Comment: Speci men Type: BLOOD SPECIMEN Ordering Facility: [facility] Address: [address] [place] [address] Performed By: #### 3 1201-7, 5-3, 91275-9, SYPH #### [facility] CLIA [id number] [address] [place] [address] [place] CO2 [Moles/Vol] 27 mmol/L Normal 21-32 [facility] Comment on above: Order Comment: Speci men Type: BLOOD SPECIMEN Ordering Facility: [facility] Address: [address] Performed By: #### 3 1201-7, 5195-3, 40286-9, SYPH #### [facility] CLIA [id number] [address] [place] [address] [place] Creatinine [Mass/Vol] 0.61 mg/dL Normal 0.51-0.95 [facility] Comment on above: Order Comment: Jon russ Type: BLOOD SPECIMEN Ordering Facility: [facility] Address: [address] Result Comment: Cleopatra ents receiving either N-Acetylcysteine (NAC) or Metamizole prior to venipuncture, may have falsely depressed results. Performed By: #### 3 1201-7, 5195-3, 45881-7, SYPH #### [facility] CLIA [id number] [address] [place] [address] OF [facility] ESTIMATED GLOMERULAR FILTRATION RATE 125 mL/min/1.73m??? Normal >=60 [facility] Comment on above: Order Comment: Jon russ Type: BLOOD SPECIMEN Ordering Facility: [facility] Address: [address] [place] [address] Result Comment: Janett mated Glomerular Filtration Rate [...] GFR. Performed By: #### 3 1201-7, 5195-3, 32888-0, SYPH #### [facility] CLIA [id number] [address] [place], [place] [address] [place] Glucose [Mass/Vol] 269 mg/dL High 70-100 [facility] Comment on above: Order Comment: Jon russ Type: BLOOD SPECIMEN Ordering Facility: [facility] Address: [address] Result Comment: The [place] Diabetes Association (ADA) provides guidance for cutoff [...] Standards of Medical Care in Diabetes 2016, [place] [employer]. Diabetes Care. 2016.39(Suppl 1). Results may be falsely elevated after the administration of Sulfapyridine. Results may be falsely depressed after the administration of Sulfasalazine. Performed By: #### 3 1201-7, 5195-3, 96299-1, SYPH #### [facility] CLIA [id number] [address] [place] [address] [place] Potassium [Moles/Vol] 3.5 mmol/L Normal 3.5-5.1 [facility] Comment on above: Order Comment: Speci men Type: BLOOD SPECIMEN Ordering Facility: [facility] Address: [address] [place] [address] Performed By: #### 3 1201-7, 5195-3, 22925-0, SYPH #### [facility] CLIA [id number] [address] [place] [address] [place] Sodium [Moles/Vol] 140 mmol/L Normal 136-145 [facility] Comment on above: Order Comment: Speci men Type: BLOOD SPECIMEN Ordering Facility: [facility] Address: [address] [place] [address] Performed By: #### 3 1201-7, 5195-3, 65891-5, SYPH #### [facility] CLIA [id number] [address] [place] [address] [place] Urea nitrogen [Mass/Vol] 6 mg/dL Low 7-26 [facility] Comment on above: Order Comment: Speci men Type: BLOOD SPECIMEN Ordering Facility: [facility] Address: [address] [place] [address] Performed By: #### 3 1201-7, 5195-3, 83761-3, SYPH #### [facility] CLIA [id number] [address] [place] [address] [place] CBC W Auto Differential pane l (Bld)on 02-04-2023 Basophils (Bld) [#/Vol] 0.04 10*3/uL Normal <0.11 [facility] Comment on above: Order Comment: Speci men Type: BLOOD SPECIMEN Ordering Facility: [facility] Address: [address] [place] [address] Performed By: #### 3 1201-7, 5195-3, 03021-2, SYPH #### [facility] CLIA [id number] [address] [place] [address] [place] Basophils/100 WBC (Bld) 0.4 % Normal [facility] Comment on above: Order Comment: Speci men Type: BLOOD SPECIMEN Ordering Facility: [facility] Address: [address] [place] [address] Performed By: #### 3 1201-7, 5-3, 88743-3, SYPH #### [facility] CLIA [id number] [address] [place] [address] [place] Differential cell count method Nom (Bld) Auto Normal [facility] Comment on above: Order Comment: Speci men Type: BLOOD SPECIMEN Ordering Facility: [facility] Address: [address] [place] [address] Performed By: #### 3 1201-7, 5195-3, 78825-6, SYPH #### [facility] CLIA [id number] [address] [place] [address] [place] Eosinophils (Bld) [#/Vol] 0.04 10*3/uL Normal <0.46 [facility] Comment on above: Order Comment: Speci men Type: BLOOD SPECIMEN Ordering Facility: [facility] Address: [address] [place] [address], [place] [address] Performed By: #### 3 1201-7, 5195-3, 67021-4, SYPH #### [facility] CLIA [id number] [address] [place] [address] [place] Eosinophils/100 WBC (Bld) 0.4 % Normal [facility] Comment on above: Order Comment: Speci men Type: BLOOD SPECIMEN Ordering Facility: [facility] Address: [address] [place] [place] [address] Performed By: #### 3 1201-7, 5195-3, 18025-7, SYPH #### [facility] CLIA [id number] [address] [place] [address] [place] Erythrocyte distribution width (RBC) [Ratio] 13.3 % Normal 11.5-15.0 [facility] Comment on above: Order Comment: Speci men Type: BLOOD SPECIMEN Ordering Facility: [facility] Address: [address] [place] [place] [address] Performed By: #### 3 1201-7, 5195-3, 10024-0, SYPH #### [facility] CLIA [id number] [address] [place] [address] [place] Hematocrit (Bld) [Volume fraction] 34.5 % Low 36.0-46.0 [facility] Comment on above: Order Comment: Speci men Type: BLOOD SPECIMEN Ordering Facility: [facility] Address: [address] Performed By: #### 3 1201-7, 5195-3, 86060-8, SYPH #### [facility] CLIA [id number] [address] [place] [address] [place] Hemoglobin (Bld) [Mass/Vol] 11.6 g/dL Normal 11.5-15.5 [facility] Comment on above: Order Comment: Speci men Type: BLOOD SPECIMEN Ordering Facility: [facility] Address: [address] [place] [place] [address] Performed By: #### 3 1201-7, 5195-3, 95548-6, SYPH #### [facility] CLIA [id number] [address] [place] [address] [place] Immature granulocytes (Bld) [#/Vol] 0.10 10*3/uL High <0.10 [facility] Comment on above: Order Comment: Speci men Type: BLOOD SPECIMEN Ordering Facility: [facility] Address: [address] [place] [address] Performed By: #### 3 1201-7, 5194-3, 73482-6, SYPH #### [facility] CLIA [id number] [address] [place] [address] [place] Immature granulocytes/100 WBC (Bld) 0.9 % Normal [facility] Comment on above: Order Comment: Speci men Type: BLOOD SPECIMEN Ordering Facility: [facility] Address: [address] [place] [address] Performed By: #### 3 120-7, 3, , SYPH #### [facility] CLIA [id number] [address] [place] [address] [place] Lymphocytes (Bld) [#/Vol] 2.41 10*3/uL Normal 1.00-4.00 [facility] Comment on above: Order Comment: Speci men Type: BLOOD SPECIMEN Ordering Facility: [facility] Address: [address] [place] [address] Performed By: #### 3 1201-7, 3, , SYPH #### [facility] CLIA [id number] [address] [place] [address] [place] Lymphocytes/100 WBC (Bld) 22.3 % Normal [facility] Comment on above: Order Comment: Speci men Type: BLOOD SPECIMEN Ordering Facility: [facility] Address: [address] [place] [address] Performed By: #### 3 1201-7, 5194-3, 55775-8, SYPH #### [facility] CLIA [id number] [address] [place] [address] STATES OF [facility] MCH (RBC) [Entitic mass] 29.1 pg Normal 26.0-34.0 [facility] Comment on above: Order Comment: Speci men Type: BLOOD SPECIMEN Ordering Facility: [facility] Address: [address] [place] [address] Performed By: #### 3 1201-7, 5195-3, 25936-0, SYPH #### [facility] CLIA [id number] [address] [place] [address] OF [place] MCHC (RBC) [Mass/Vol] 33.6 g/dL Normal 30.5-36.0 [facility] Comment on above: Order Comment: Speci men Type: BLOOD SPECIMEN Ordering Facility: [facility] Address: [address] [place] [address] Performed By: #### 3 1201-7, 5195-3, 05853-0, SYPH #### [facility] CLIA [id number] [address] [place] [address] [place] MCV (RBC) [Entitic vol] 86.5 fL Normal 80.0-100.0 [facility] Comment on above: Order Comment: Speci men Type: BLOOD SPECIMEN Ordering Facility: [facility] Address: [address] [place] [address] Performed By: #### 3 1201-7, 5195-3, 32375-8, SYPH #### [facility] CLIA [id number] [address] [place] [address] OF [place] Monocytes (Bld) [#/Vol] 0.70 10*3/uL Normal <0.87 [facility] Comment on above: Order Comment: Speci men Type: BLOOD SPECIMEN Ordering Facility: [facility] Address: [address] [place] [address] Performed By: #### 3 1201-7, 5195-3, 50730-4, SYPH #### [facility] CLIA [id number] [address] [place] [address] [place] Monocytes/100 WBC (Bld) 6.5 % Normal [facility] Comment on above: Order Comment: Speci men Type: BLOOD SPECIMEN Ordering Facility: [facility] Address: [address] [place] [address] Performed By: #### 3 1201-7, 5195-3, 42452-2, SYPH #### [facility] CLIA [id number] [address] [place] [address] [place] Neutrophils (Bld) [#/Vol] 7.54 10*3/uL High 1.45-7.50 [facility] Comment on above: Order Comment: Speci men Type: BLOOD SPECIMEN Ordering Facility: [facility] Address: [address] [place] [address] Performed By: #### 3 1201-7, 5195-3, 97010-2, SYPH #### [facility] CLIA [id number] [address] [place] [address] [place] Neutrophils/100 WBC (Bld) 69.5 % Normal [facility] Comment on above: Order Comment: Speci men Type: BLOOD SPECIMEN Ordering Facility: [facility] Address: [address] [place] [address] Performed By: #### 3 1201-7, 5-3, 46046-0, SYPH #### [facility] CLIA [id number] [address] [place] [address] [place] Nucleated RBC (Bld) [#/Vol] 10*3/uL Normal <0.01 [facility] Comment on above: Order Comment: Speci men Type: BLOOD SPECIMEN Ordering Facility: [facility] Address: [address] [place] [address] Performed By: #### 3 1201-7, 5-3, 01589-7, SYPH #### [facility] CLIA [id number] [address] [place] [address] [place] Nucleated RBC/100 WBC (Bld) [Ratio] 0.0 /100 WBC Normal [facility] Comment on above: Order Comment: Speci men Type: BLOOD SPECIMEN Ordering Facility: [facility] Address: [address] [place] [address] Performed By: #### 3 1201-7, 5195-3, 35464-0, SYPH #### [facility] CLIA [id number] [address] [place] [address] [place] Platelet mean volume (Bld) [Entitic vol] 11.7 fL Normal 9.0-12.7 [facility] Comment on above: Order Comment: Speci men Type: BLOOD SPECIMEN Ordering Facility: [facility] Address: [address] [place] [address] Performed By: #### 3 1201-7, 5195-3, 54748-2, SYPH #### [facility] CLIA [id number] [address] [place] [address] [place] Platelets (Bld) [#/Vol] 163 10*3/uL Normal 150-400 [facility] Comment on above: Order Comment: Speci men Type: BLOOD SPECIMEN Ordering Facility: [facility] Address: [address] [place] [address] Performed By: #### 3 1201-7, 5195-3, 43916-0, SYPH #### [facility] CLIA [id number] [address] [place] [address] [place] RBC (Bld) [#/Vol] 3.99 10*6/uL Normal 3.90-5.20 [facility] Comment on above: Order Comment: Speci men Type: BLOOD SPECIMEN Ordering Facility: [facility] Address: [address] [place] [address] Performed By: #### 3 1201-7, 5195-3, 22423-9, SYPH #### [facility] CLIA [id number] [address] [place] [address] [place] WBC (Bld) [#/Vol] 10.83 10*3/uL Normal 3.70-11.00 [facility] Comment on above: Order Comment: Speci men Type: BLOOD SPECIMEN Ordering Facility: [facility] Address: [place] [address] Performed By: #### 3 1201-7, 5195-3, 29926-4, [facility] #### [facility] CLIA [id number] [address] [place] [address] [facility] [place] CNDSon 02-04-2023 CNDS HNO ID: [id number] Author: David Burnett DO Service: Hospital Medicine [...] summary. 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 Patient has a known history of diabetic gastroparesis. She follows in [facility]. She was admitted to [place]. Unfortunately she has not been tolerating p.o. [...] She will cotninue following with her personal feller seam operator outpatient. Follow up with PCP in one [...] hyperglycemia, with long-term current use of insulin ([facility]); Insulin p (more content not included)... [facility] ALLIED HEALTHon 02-03-2023 ALLIED HEALTH HNO ID: [id number] Author: Chaplain Craig Service: Spiritual Care Author Type: Lining Brusher Type: Allied Health Filed: 02/03/2023 11:39 AM Note Text: SPIRITUAL CARE PROGRESS NOTE SERVICE DATE: 02/03/2023 SERVICE TIME: 10:35 am While rounding in ICU, attempted to provided spiritual presence to patient. Patient was busy . No family was present. A workers compensation examiner will follow up. To contact the Spiritual Care Department: Please call [phone]. SIGNATURE: Chaplain Craig PATIENT NAME: Kathleen Villa DATE: February 03, 2023 TIME: 11:37 AM PAGER/CONTACT #: [phone] [facility] Basic metabolic 2000 panelon 02-03-2023 Anion gap [Moles/Vol] 9 mmol/L Normal 5-16 [facility] Comment on above: Order Comment: Speci men Type: BLOOD SPECIMEN Ordering Facility: [facility] Address: [place] [address] Performed By: #### 3 1201-7, 5195-3, 28584-2, SYPH #### [facility] CLIA [id number] [facility] [place] [address] [place] Calcium [Mass/Vol] 8.1 mg/dL Low 8.5-10.5 [facility] Comment on above: Order Comment: Speci men Type: BLOOD SPECIMEN Ordering Facility: [facility] Address: [address] [place] [address] Performed By: #### 3 1201-7, 5195-3, 07502-1, SYPH #### [facility] CLIA [id number] [address] [place] [address] [place] Chloride [Moles/Vol] 112 mmol/L High 98-107 [facility] Comment on above: Order Comment: Speci men Type: BLOOD SPECIMEN Ordering Facility: [facility] Address: [address] [place] [address] Performed By: #### 3 1201-7, 5195-3, , SYPH #### [facility] CLIA [id number] [address] [place] [address] [place] CO2 [Moles/Vol] 22 mmol/L Normal 21-32 [facility] Comment on above: Order Comment: Speci men Type: BLOOD SPECIMEN Ordering Facility: [facility] Address: [address] [place] [address] Performed By: #### 3 1201-7, 3, , SYPH #### [facility] CLIA [id number] [address] [place] [address] [place] Creatinine [Mass/Vol] 0.57 mg/dL Normal 0.51-0.95 [facility] Comment on above: Order Comment: Speci men Type: BLOOD SPECIMEN Ordering Facility: [facility] Address: [address] [place] [address] Result Comment: Cleopatra ents receiving either N-Acetylcysteine (NAC) or Metamizole prior to venipuncture, may have falsely depressed results. Performed By: #### 3 1201-7, 5195-3, 26755-9, SYPH #### [facility] CLIA [id number] [address] [place] [address] [place] ESTIMATED GLOMERULAR FILTRATION RATE 127 mL/min/1.73m??? Normal >=60 [facility] Comment on above: Order Comment: Jon jeb Type: BLOOD SPECIMEN Ordering Facility: [facility] Address: [address] [place] [address] Result Comment: Janett mated Glomerular Filtration Rate [...] GFR. Performed By: #### 3 1201-7, 5195-3, 66634-1, SYPH #### [facility] CLIA [id number] [address] [place], [place] [address] [place] Glucose [Mass/Vol] 135 mg/dL High 70-100 [facility] Comment on above: Order Comment: Jon russ Type: BLOOD SPECIMEN Ordering Facility: [facility] Address: [address] [place] [address] Result Comment: The [place] Diabetes Association (ADA) provides guidance for cutoff [...] Standards of Medical Care in Diabetes 2016, [place] [employer]. Diabetes Care. 2016.39(Suppl 1). Results may be falsely elevated after the administration of Sulfapyridine. Results may be falsely depressed after the administration of Sulfasalazine. Performed By: #### 3 1201-7, 5195-3, 77122-1, SYPH #### [facility] CLIA [id number] [address] [place], [place] [address] [place] Potassium [Moles/Vol] 4.0 mmol/L Normal 3.5-5.1 [facility] Comment on above: Order Comment: Speci men Type: BLOOD SPECIMEN Ordering Facility: [facility] Address: [address] [place] [id number] Performed By: #### 3 1201-7, 5195-3, 74982-3, SYPH #### [facility] CLIA [id number] [address] [place] [address] [place] Sodium [Moles/Vol] 143 mmol/L Normal 136-145 [facility] Comment on above: Order Comment: Speci men Type: BLOOD SPECIMEN Ordering Facility: [facility] Address: [address] [place], [place] [address] Performed By: #### 3 1201-7, 5195-3, 95322-6, SYPH #### [facility] CLIA [id number] [address] [place] [address] [place] Urea nitrogen [Mass/Vol] 8 mg/dL Normal 7-26 [facility] Comment on above: Order Comment: Speci men Type: BLOOD SPECIMEN Ordering Facility: [facility] Address: [address] [place], [place] [address] Performed By: #### 3 1201-7, 5195-3, 45917-4, SYPH #### [facility] CLIA [id number] [address] [place] [address] [place] CASE MGT INIT ASSESon 2022 CASE MGT INIT ASSES HNO ID: [id number] Author: MICHELLE Tobar Service: Social Work Author Type: Spirits Model Type: Care Mgt Initial Assessment Filed: 02/03/2023 2:35 PM Note Text: CARE MANAGEMENT: ASSESSMENT AND DISCHARGE PLAN SERVICE DATE: February 03, 2023 SERVICE TIME: 2:31 PM PCP: Vivi Smith MD Primary Contact: Extended Emergency Contact Information Primary Emergency Contact: Christie,Rene Melba Relation: Significant other Admission Status: Inpatient Insurance Provider: [employer] Discharge Planning requested by: Per Department Practice Potential Transition Plans Home Advance Directives Current Advance Directive: None [employer]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 SIGNATURE: MICHELLE Tobar PATIENT NAME: Kathleen Villa DATE: February 03, 2023 TIME: 2:31 PM CONTACT #: [phone] [facility] CBC W Auto Differential pane l (Bld)on 06-09-2023 Basophils (Bld) [#/Vol] 0.05 10*3/uL Normal <0.11 [facility] Comment on above: Order Comment: Speci men Type: BLOOD SPECIMEN Ordering Facility: [facility] Address: [address] [place] [address] Performed By: #### 3 1201-7, 5-3, 99962-5, SYPH #### [facility] CLIA [id number] [address] [place] [address] [place] Basophils/100 WBC (Bld) 0.3 % Normal [facility] Comment on above: Order Comment: Speci men Type: BLOOD SPECIMEN [facility] [facility] Address: [address] [place] [address] Performed By: #### 3 1201-7, 5194-3, 73488-1, SYPH #### [facility] CLIA [id number] [address] [place] [address] [place] Differential cell count method Nom (Bld) Auto Normal [facility] Comment on above: Order Comment: Speci men Type: BLOOD SPECIMEN Ordering Facility: [facility] Address: [address] [place] [address] Performed By: #### 3 1201-7, 3, , SYPH #### [facility] CLIA [id number] [address] [place] [address] [place] Eosinophils (Bld) [#/Vol] 10*3/uL Normal <0.46 [facility] Comment on above: Order Comment: Speci men Type: BLOOD SPECIMEN Ordering Facility: [facility] Address: [address] [place] [address] Performed By: #### 3 1201-7, 5194-3, 00135-9, SYPH #### [facility] CLIA [id number] [address] [place] [address] [place] Eosinophils/100 WBC (Bld) 0.0 % Normal [facility] Comment on above: Order Comment: Speci men Type: BLOOD SPECIMEN Ordering Facility: [facility] Address: [address] [address] Performed By: #### 3 1201-7, 5195-3, 60057-8, SYPH #### [facility] CLIA [id number] [address] [place] [address] [place] Erythrocyte distribution width (RBC) [Ratio] 13.5 % Normal 11.5-15.0 [facility] Comment on above: Order Comment: Speci men Type: BLOOD SPECIMEN Ordering Facility: [facility] Address: [address] [address] Performed By: #### 3 1201-7, 5195-3, 58636-9, SYPH #### [facility] CLIA [id number] [address] [place] [address] [place] Hematocrit (Bld) [Volume fraction] 37.7 % Normal 36.0-46.0 [facility] Comment on above: Order Comment: Speci men Type: BLOOD SPECIMEN Ordering Facility: [facility] Address: [address] [address] Performed By: #### 3 1201-7, 5195-3, 71284-1, SYPH #### [facility] CLIA [id number] [address] [place] [address] [place] Hemoglobin (Bld) [Mass/Vol] 11.8 g/dL Normal 11.5-15.5 [facility] Comment on above: Order Comment: Speci men Type: BLOOD SPECIMEN Ordering Facility: [facility] Address: [address] [address] Performed By: #### 3 1201-7, 5195-3, 90213-1, SYPH #### [facility] CLIA [id number] [address] [place] [address] [place] Immature granulocytes (Bld) [#/Vol] 0.16 10*3/uL High <0.10 [facility] Comment on above: Order Comment: Speci men Type: BLOOD SPECIMEN Ordering Facility: [facility] Address: [address] [address] Performed By: #### 3 1201-7, 5195-3, 83650-1, SYPH #### [facility] CLIA [id number] [address] [place] [address] [place] Immature granulocytes/100 WBC (Bld) 1.0 % Normal [facility] Comment on above: Order Comment: Speci men Type: BLOOD SPECIMEN Ordering Facility: [facility] Address: [address] [place] [address] Performed By: #### 3 1201-7, 5-3, 26313-0, SYPH #### [facility] CLIA [id number] [address] [place] [address] [place] Lymphocytes (Bld) [#/Vol] 1.76 10*3/uL Normal 1.00-4.00 [facility] Comment on above: Order Comment: Speci men Type: BLOOD SPECIMEN Ordering Facility: [facility] Address: [address] [place] [address] Performed By: #### 3 1201-7, 5194-3, 36682-3, SYPH #### [facility] CLIA [id number] [address] [place] [address] [place] Lymphocytes/100 WBC (Bld) 10.7 % Normal [facility] Comment on above: Order Comment: Speci men Type: BLOOD SPECIMEN Ordering Facility: [facility] Address: [address] [place] [address] Performed By: #### 3 1201-7, 5-3, 31355-8, SYPH #### [facility] CLIA [id number] [address] [place] [address] [place] MCH (RBC) [Entitic mass] 29.7 pg Normal 26.0-34.0 [facility] Comment on above: Order Comment: Speci men Type: BLOOD SPECIMEN Ordering Facility: [facility] Address: [address] [place] [address] Performed By: #### 3 1201-7, 5-3, 10793-3, SYPH #### [facility] CLIA [id number] [address] [place] [address] [place] MCHC (RBC) [Mass/Vol] 31.3 g/dL Normal 30.5-36.0 [facility] Comment on above: Order Comment: Speci men Type: BLOOD SPECIMEN Ordering Facility: [facility] Address: [address] [place] [address] Performed By: #### 3 1201-7, 5195-3, 27668-4, SYPH #### [facility] CLIA [id number] [address] [place] [address] [place] MCV (RBC) [Entitic vol] 95.0 fL Normal 80.0-100.0 [facility] Comment on above: Order Comment: Speci men Type: BLOOD SPECIMEN Ordering Facility: [facility] Address: [address] [place] [address] Performed By: #### 3 1201-7, 5195-3, 73537-6, SYPH #### [facility] CLIA [id number] [address] [place] [address] [place] Monocytes (Bld) [#/Vol] 0.77 10*3/uL Normal <0.87 [facility] Comment on above: Order Comment: Speci men Type: BLOOD SPECIMEN Ordering Facility: [facility] Address: [address] [place] [address] Performed By: #### 3 1201-7, 5-3, 22725-3, SYPH #### [facility] CLIA [id number] [address] [place] [address] [place] Monocytes/100 WBC (Bld) 4.7 % Normal [facility] Comment on above: Order Comment: Speci men Type: BLOOD SPECIMEN Ordering Facility: [facility] Address: [address] [place] [address] Performed By: #### 3 1201-7, 5195-3, 12693-2, SYPH #### [facility] CLIA [id number] [address] [place] [address] [place] Neutrophils (Bld) [#/Vol] 13.71 10*3/uL High 1.45-7.50 [facility] Comment on above: Order Comment: Speci men Type: BLOOD SPECIMEN Ordering Facility: [facility] Address: [address] [place] [address] Performed By: #### 3 1201-7, 5195-3, 54977-3, SYPH #### [facility] CLIA [id number] [address] [place] [address] [place] Neutrophils/100 WBC (Bld) 83.3 % Normal [facility] Comment on above: Order Comment: Speci men Type: BLOOD SPECIMEN Ordering Facility: [facility] Address: [address] [place] [address] Performed By: #### 3 1201-7, 5195-3, 68226-8, SYPH #### [facility] CLIA [id number] [address] [place] [address] [place] Nucleated RBC (Bld) [#/Vol] 10*3/uL Normal <0.01 [facility] Comment on above: Order Comment: Speci men Type: BLOOD SPECIMEN Ordering Facility: [facility] Address: [address] [place] [address] Performed By: #### 3 1201-7, 5-3, 70225-6, SYPH #### [facility] CLIA [id number] [address] [place] [address] [place] Nucleated RBC/100 WBC (Bld) [Ratio] 0.0 /100 WBC Normal [facility] Comment on above: Order Comment: Speci men Type: BLOOD SPECIMEN Ordering Facility: [facility] Address: [address] [place] [address] Performed By: #### 3 1201-7, 5195-3, 11990-5, SYPH #### [facility] CLIA [id number] [address] [place] [address] [place] Platelet mean volume (Bld) [Entitic vol] 12.4 fL Normal 9.0-12.7 [facility] Comment on above: Order Comment: Speci men Type: BLOOD SPECIMEN Ordering Facility: [facility] Address: [address] [id number] Performed By: #### 3 1201-7, 5195-3, 21811-3, SYPH #### [facility] CLIA [id number] [address] [place] [address] [place] Platelets (Bld) [#/Vol] 144 10*3/uL Low 150-400 [facility] Comment on above: Order Comment: Speci men Type: BLOOD SPECIMEN Ordering Facility: [facility] Address: [address] [phone] Performed By: #### 3 1201-7, 5195-3, 62897-2, SYPH #### [facility] CLIA [id number] [address] [place], [place] [address] [place] RBC (Bld) [#/Vol] 3.97 10*6/uL Normal 3.90-5.20 [facility] Comment on above: Order Comment: Speci men Type: BLOOD SPECIMEN Ordering Facility: [facility] Address: [address] [phone] Performed By: #### 3 1201-7, 5195-3, 15173-7, SYPH #### [facility] CLIA [id number] [address] [place], [place] [address] [place] WBC (Bld) [#/Vol] 16.45 10*3/uL High 3.70-11.00 [facility] Comment on above: Order Comment: Speci men Type: BLOOD SPECIMEN Ordering Facility: [facility] Address: [address] [facility] [phone] Performed By: #### 3 1201-7, 5195-3, 88232-1, SYPH #### [facility] CLIA [id number] [address] [place] [address] [facility] OF [place] Comprehensive metabolic 2000 panelon 02-03-2023 Albumin [Mass/Vol] 3.5 g/dL Normal 3.2-5.0 [facility] Comment on above: Order Comment: Speci men Type: BLOOD SPECIMEN Ordering Facility: [facility] Address: [address] [place] [address] Performed By: #### 3 1201-7, 5-3, 33705-2, SYPH #### [facility] CLIA [id number] [address] [place] [address] [place] ALP [Catalytic activity/Vol] 82 U/L Normal 45-117 [facility] Comment on above: Order Comment: Speci men Type: BLOOD SPECIMEN Ordering Facility: [facility] Address: [address] [place] [address] Performed By: #### 3 1201-7, 5194-3, , SYPH #### [facility] CLIA [id number] [address] [place] [address] [place] ALT [Catalytic activity/Vol] 19 U/L Normal 13-61 [facility] Comment on above: Order Comment: Speci men Type: BLOOD SPECIMEN Ordering Facility: [facility] Address: [address] [place] [address] Result Comment: Resu lts may be falsely depressed after the administration of Sulfasalazine and/or Sulfapyridine. Performed By: #### 3 1201-7, 5-3, 81438-8, SYPH #### [facility] CLIA [id number] [address] [place] [address] [place] Anion gap [Moles/Vol] 17 mmol/L High 5-16 [facility] Comment on above: Order Comment: Speci men Type: BLOOD SPECIMEN Ordering Facility: [facility] Address: [address] [place] [address] Performed By: #### 3 1201-7, 5194-3, 06156-6, SYPH #### [facility] CLIA [id number] [address] [place] [address] [place] AST [Catalytic activity/Vol] Normal [facility] Comment on above: Order Comment: Speci men Type: BLOOD SPECIMEN Ordering Facility: [facility] Address: [address] [address] Result Comment: Unab le to assay due to interference from hemolysis. Suggest reorder as clinically indicated. Critical or Urgent Result(s) Called at: 04:33:47 on 02/03/2023 by mb. Called to and read back by: CLOVIS Results may be falsely depressed after the administration of Sulfasalazine and/or Sulfapyridine. Performed By: #### 3 1201-7, 5195-3, 56550-5, SYPH #### [facility] CLIA [id number] [address] [place] [address] [place] Bilirubin [Mass/Vol] 1.0 mg/dL Normal 0.2-1.0 [facility] Comment on above: Order Comment: Jon russ Type: BLOOD SPECIMEN Ordering Facility: [facility] Address: [address] [place] [address] Performed By: #### 3 1201-7, 5195-3, 64193-1, SYPH #### [facility] CLIA [id number] [address] [place] [address] [place] Calcium [Mass/Vol] 8.5 mg/dL Normal 8.5-10.5 [facility] Comment on above: Order Comment: Jon russ Type: BLOOD SPECIMEN Ordering Facility: [facility] Address: [address] [place] [address] Performed By: #### 3 1201-7, 5195-3, 18725-3, SYPH #### [facility] CLIA [id number] [address] [place] [address] [place] Chloride [Moles/Vol] 109 mmol/L High 98-107 [facility] Comment on above: Order Comment: Speci men Type: BLOOD SPECIMEN Ordering Facility: [facility] Address: [address] [place] [address] Performed By: #### 3 1201-7, 5195-3, 33322-3, SYPH #### [facility] CLIA [id number] [address] [place] [address] [place] CO2 [Moles/Vol] 12 mmol/L Low 21-32 [facility] Comment on above: Order Comment: Jon russ Type: BLOOD SPECIMEN Ordering Facility: [facility] Address: [address] [place] [address] Performed By: #### 3 1201-7, 5195-3, 75000-7, SYPH #### [facility] CLIA [id number] [address] [place] [address] [place] Creatinine [Mass/Vol] 0.64 mg/dL Normal 0.51-0.95 [facility] Comment on above: Order Comment: Speci jeb Type: BLOOD SPECIMEN Ordering Facility: [facility] Address: [address] [place] [address] Result Comment: Cleopatra ents receiving either N-Acetylcysteine (NAC) or Metamizole prior to venipuncture, may have falsely depressed results. Performed By: #### 3 1201-7, 5195-3, 62299-1, SYPH #### [facility] CLIA [id number] [address] [place] [address] [place] ESTIMATED GLOMERULAR FILTRATION RATE 124 mL/min/1.73m??? Normal >=60 [facility] Comment on above: Order Comment: Belindai jeb Type: BLOOD SPECIMEN Ordering Facility: [facility] Address: [address] [place] [address] Result Comment: Janett mated Glomerular Filtration Rate [...] GFR. Performed By: #### 3 1201-7, 5195-3, 79886-4, SYPH #### [facility] CLIA [id number] [address] [place], [place] [address] [place] Glucose [Mass/Vol] 252 mg/dL High 70-100 [facility] Comment on above: Order Comment: Speci men Type: BLOOD SPECIMEN Ordering Facility: [facility] Address: [address] [place], [place] [phone] Result Comment: The [place] [employer] (ADA) provides guidance for cutoff [...] Standards of Medical Care in Diabetes 2016, [place] [employer]. Diabetes Care. 2016.39(Suppl 1). Results may be falsely elevated after the administration of Sulfapyridine. Results may be falsely depressed after the administration of Sulfasalazine. Performed By: #### 3 1201-7, 5195-3, 63373-8, SYPH #### [facility] CLIA [id number] [address] [place] [address] [place] Potassium [Moles/Vol] Normal [facility] Comment on above: Order Comment: Jon russ Type: BLOOD SPECIMEN Ordering Facility: [facility] Address: [address] [place], [place] [phone] Result Comment: Unab le to assay due to interference from hemolysis. Suggest reorder as clinically indicated. Critical or Urgent Result(s) Called at: 04:33:11 on 02/03/2023 by milly. Called to and read back by: CLOVIS Performed By: #### 3 1201-7, 5195-3, 98097-2, SYPH #### [facility] CLIA [id number] [address] [place] [address] [place] Protein [Mass/Vol] 5.8 g/dL Low 6.0-8.5 [facility] Comment on above: Order Comment: Jon russ Type: BLOOD SPECIMEN Ordering Facility: [facility] Address: [address] [place], [place] [phone] Performed By: #### 3 1201-7, 5195-3, 48030-1, SYPH #### [facility] CLIA [id number] [address] [place], [place] [address] [place] Sodium [Moles/Vol] 138 mmol/L Normal 136-145 [facility] Comment on above: Order Comment: Speci men Type: BLOOD SPECIMEN Ordering Facility: [facility] Address: [address] [place], [place] [phone] Performed By: #### 3 1201-7, 5195-3, 75086-7, SYPH #### [facility] CLIA [id number] [address] [place], [place] [address] [place] Urea nitrogen [Mass/Vol] 10 mg/dL Normal 7- [facility] Comment on above: Order Comment: Speci men Type: BLOOD SPECIMEN Ordering Facility: [facility] Address: [address] [place], [place] [phone] Performed By: #### 3 1201-7, 5195-3, 44351-6, SYPH #### [facility] CLIA [id number] [address] [place], [place] [address] [place] Magnesium SerPl-mCncon 02-03 Magnesium [Mass/Vol] 1.8 mg/dL Normal 1.6-2.6 [facility] Comment on above: Order Comment: Speci men Type: BLOOD SPECIMEN Ordering Facility: [facility] Address: [address] [place], [place] [phone] Performed By: #### 3 1201-7, 5195-3, 45974-6, SYPH #### [facility] CLIA [id number] [address] [place], [place] [address] [place] Basic metabolic 2000 panelon 02-02-2023 Anion gap [Moles/Vol] 17 mmol/L High 5-16 [facility] Comment on above: Order Comment: Speci men Type: BLOOD SPECIMEN Ordering Facility: [facility] Address: [address] [place], [place] [phone] Performed By: #### 3 1201-7, 5195-3, 36985-4, SYPH #### [facility] CLIA [id number] [address] [place], [place] [address] [place] Calcium [Mass/Vol] 8.0 mg/dL Low 8.5-10.5 [facility] Comment on above: Order Comment: Speci men Type: BLOOD SPECIMEN Ordering Facility: [facility] Address: [address] [place] [address] Performed By: #### 3 1201-7, 5195-3, 42171-8, SYPH #### [facility] CLIA [id number] [address] [place] [address] [place] Chloride [Moles/Vol] 108 mmol/L High 98-107 [facility] Comment on above: Order Comment: Speci men Type: BLOOD SPECIMEN Ordering Facility: [facility] Address: [address] [place] [address] Performed By: #### 3 1201-7, 5193, , SYPH #### [facility] CLIA [id number] [address] [place] [address] [place] CO2 [Moles/Vol] 13 mmol/L Low 21-32 [facility] Comment on above: Order Comment: Speci men Type: BLOOD SPECIMEN Ordering Facility: [facility] Address: [address] [place] [address] Performed By: #### 3 1201-7, 5195-3, 25144-5, SYPH #### [facility] CLIA [id number] [address] [place], [place] [address] [place] Creatinine [Mass/Vol] 0.69 mg/dL Normal 0.51-0.95 [facility] Comment on above: Order Comment: Speci men Type: BLOOD SPECIMEN Ordering Facility: [facility] Address: [address] [place] [address] Result Comment: Cleopatra ents receiving either N-Acetylcysteine (NAC) or Metamizole prior to venipuncture, may have falsely depressed results. Performed By: #### 3 1201-7, 5195-3, 41881-5, SYPH #### [facility] CLIA [id number] [address] [place] [address] [place] ESTIMATED GLOMERULAR FILTRATION RATE 121 mL/min/1.73m??? Normal >=60 [facility] Comment on above: Order Comment: Jon russ Type: BLOOD SPECIMEN Ordering Facility: [facility] Address: [address] [place] [address] Result Comment: Janett mated Glomerular Filtration Rate [...] GFR. Performed By: #### 3 1201-7, 5195-3, 80482-5, SYPH #### [facility] CLIA [id number] [address] [place] [address] [place] Glucose [Mass/Vol] 251 mg/dL High 70-100 [facility] Comment on above: Order Comment: Jon russ Type: BLOOD SPECIMEN Ordering Facility: [facility] Address: [address] [place] [address] Result Comment: The [place] Diabetes Association (ADA) provides guidance for cutoff [...] Standards of Medical Care in Diabetes 2016, [place] [employer]. Diabetes Care. 2016.39(Suppl 1). Results may be falsely elevated after the administration of Sulfapyridine. Results may be falsely depressed after the administration of Sulfasalazine. Performed By: #### 3 1201-7, 5194-3, 08744-0, SYPH #### [facility] CLIA [id number] [address] [place], [place] [address] [place] Potassium [Moles/Vol] 4.4 mmol/L Normal 3.5-5.1 [facility] Comment on above: Order Comment: Speci men Type: BLOOD SPECIMEN Ordering Facility: [facility] Address: [address] [place] [address] Performed By: #### 3 1201-7, 5194-3, 08565-7, SYPH #### [facility] CLIA [id number] [address] [place], [place] [address] [place] Sodium [Moles/Vol] 138 mmol/L Normal 136-145 [facility] Comment on above: Order Comment: Speci men Type: BLOOD SPECIMEN Ordering Facility: [facility] Address: [address] [place] [address] Performed By: #### 3 1201-7, 3, , SYPH #### [facility] CLIA [id number] [address] [place] [address] [place] Urea nitrogen [Mass/Vol] 12 mg/dL Normal 7-26 [facility] Comment on above: Order Comment: Speci men Type: BLOOD SPECIMEN Ordering Facility: [facility] Address: [address] [place] [address] Performed By: #### 3 1201-7, 3, 66451-2, SYPH #### [facility] CLIA [id number] [address] [place], [place] [address] [place] Anion gap [Moles/Vol] 15 mmol/L Normal 5-16 [facility] Comment on above: Order Comment: Speci men Type: BLOOD SPECIMEN Ordering Facility: [facility] Address: [address] [place] [address] Performed By: #### 3 1201-7, 5194-3, 21596-3, SYPH #### [facility] CLIA [id number] [address] [place], [place] [address] [place] Calcium [Mass/Vol] 8.2 mg/dL Low 8.5-10.5 [facility] Comment on above: Order Comment: Speci men Type: BLOOD SPECIMEN Ordering Facility: [facility] Address: [address] [place] [address] Performed By: #### 3 1201-7, 5195-3, 79059-5, SYPH #### [facility] CLIA [id number] [address] [place] [address] [place] Chloride [Moles/Vol] 113 mmol/L High 98-107 [facility] Comment on above: Order Comment: Speci men Type: BLOOD SPECIMEN Ordering Facility: [facility] Address: [address] [place] [address] Performed By: #### 3 1201-7, 5195-3, 98703-8, SYPH #### [facility] CLIA [id number] [address] [place], [place] [address] [place] CO2 [Moles/Vol] 11 mmol/L Low 21-32 [facility] Comment on above: Order Comment: Speci men Type: BLOOD SPECIMEN Ordering Facility: [facility] Address: [address] [place] [address] Performed By: #### 3 1201-7, 5195-3, 99122-2, SYPH #### [facility] CLIA [id number] [address] [place] [address] [place] [facility] Creatinine [Mass/Vol] 0.77 mg/dL Normal 0.51-0.95 [facility] Comment on above: Order Comment: Speci men Type: BLOOD SPECIMEN Ordering Facility: [facility] Address: [address] [place] [address] Result Comment: Cleopatra ents receiving either N-Acetylcysteine (NAC) or Metamizole prior to venipuncture, may have falsely depressed results. Performed By: #### 3 1201-7, 5195-3, 67603-3, SYPH #### [facility] CLIA [id number] [address] [place] [address] [place] [facility] ESTIMATED GLOMERULAR FILTRATION RATE 108 mL/min/1.73m??? Normal >=60 [facility] Comment on above: Order Comment: Jon russ Type: BLOOD SPECIMEN Ordering Facility: [facility] Address: [address] [place], [place] [id number] Result Comment: Janett mated Glomerular Filtration Rate [...] GFR. Performed By: #### 3 1201-7, 5195-3, 32698-4, SYPH #### [facility] CLIA [id number] [address] [place], [place] [id number] [place] Glucose [Mass/Vol] 253 mg/dL High 70-100 [facility] Comment on above: Order Comment: Jon russ Type: BLOOD SPECIMEN Ordering Facility: [facility] Address: [address] [place], [place] [id number] Result Comment: The [place] Diabetes Association (ADA) provides guidance for cutoff [...] Standards of Medical Care in Diabetes 2016, [place] [employer]. Diabetes Care. 2016.39(Suppl 1). Results may be falsely elevated after the administration of Sulfapyridine. Results may be falsely depressed after the administration of Sulfasalazine. Performed By: #### 3 1201-7, 5195-3, 52190-6, SYPH #### [facility] CLIA [id number] [address] [place] [address] [place] Potassium [Moles/Vol] 4.6 mmol/L Normal 3.5-5.1 [facility] Comment on above: Order Comment: Speci men Type: BLOOD SPECIMEN Ordering Facility: [facility] Address: [address] [place] [address] Performed By: #### 3 1201-7, 5195-3, 93760-2, SYPH #### [facility] CLIA [id number] [address] [place] [address] [place] Sodium [Moles/Vol] 139 mmol/L Normal 136-145 [facility] Comment on above: Order Comment: Speci men Type: BLOOD SPECIMEN Ordering Facility: [facility] Address: [address] [place] [address] Performed By: #### 3 1201-7, 5195-3, 10771-4, SYPH #### [facility] CLIA [id number] [address] [place] [address] [place] Urea nitrogen [Mass/Vol] 18 mg/dL Normal 7-26 [facility] Comment on above: Order Comment: Speci men Type: BLOOD SPECIMEN Ordering Facility: [facility] Address: [address] [place] [address] Performed By: #### 3 1201-7, 5195-3, 08853-0, SYPH #### [facility] CLIA [id number] [address] [place] [address] [place] Anion gap [Moles/Vol] 19 mmol/L High 5-16 [facility] Comment on above: Order Comment: Speci men Type: SWAB Ordering Facility: [facility] Address: [address] [place] [address] Performed By: #### 3 6902-5 #### [facility] CLIA [id number] [address] [place] [address] [place] Calcium [Mass/Vol] 8.6 mg/dL Normal 8.5-10.5 [facility] Comment on above: Order Comment: Speci men Type: SWAB Ordering Facility: [facility] Address: [address] [place] [phone] Performed By: #### 3 6902-5 #### [facility] CLIA [id number] [address] [place] [address] [place] Chloride [Moles/Vol] 108 mmol/L High 98-107 [facility] Comment on above: Order Comment: Speci men Type: SWAB Ordering Facility: [facility] Address: [address] [place] [address] Performed By: #### 3 6902-5 #### [facility] CLIA [id number] [address] [place] [address] [place] CO2 [Moles/Vol] 9 mmol/L Low 21-32 [facility] Comment on above: Order Comment: Speci men Type: SWAB Ordering Facility: [facility] Address: [address] [place] [address] Result Comment: Crit ical or Urgent Result(s) Called at: 10:32:16 on 02/02/2023 by [facility]. Called to and read back by: Billie SALEEM Performed By: #### 3 6902-5 #### [facility] CLIA [id number] [address] [place] [address] [place] Creatinine [Mass/Vol] 0.82 mg/dL Normal 0.51-0.95 [facility] Comment on above: Order Comment: Speci men Type: SWAB Ordering Facility: [facility] Address: [address] [place] [address] Result Comment: Cleopatra ents receiving either N-Acetylcysteine (NAC) or Metamizole prior to venipuncture, may have falsely depressed results. Performed By: #### 3 6902-5 #### [facility] CLIA [id number] [address] [place] [address] [place] ESTIMATED GLOMERULAR FILTRATION RATE 100 mL/min/1.73m??? Normal >=60 [facility] Comment on above: Order Comment: Speci men Type: SWAB Ordering Facility: [facility] Address: [address] [place] [address] Result Comment: Janett mated Glomerular Filtration Rate [...] GFR. Performed By: #### 3 6902-5 #### [facility] CLIA [id number] [address] [place] [address] [place] Glucose [Mass/Vol] 336 mg/dL High 70-100 [facility] Comment on above: Order Comment: Speci men Type: SWAB Ordering Facility: [facility] Address: [address] [address] Result Comment: The [place] Diabetes Association (ADA) provides guidance for cutoff [...] Standards of Medical Care in Diabetes 2016, [place] [employer]. Diabetes Care. 2016.39(Suppl 1). Results may be falsely elevated after the administration of Sulfapyridine. Results may be falsely depressed after the administration of Sulfasalazine. Performed By: #### 3 6902-5 #### [facility] CLIA [id number] [address] [place] [address] [place] Potassium [Moles/Vol] Normal [facility] Comment on above: Order Comment: Speci jeb Type: SWAB Ordering Facility: [facility] Address: [address] [address] Result Comment: Unab le to assay due to interference from hemolysis. Suggest reorder as clinically indicated. Spoke to P.Rosalba RN Performed By: #### 3 6902-5 #### [facility] CLIA [id number] [address] [place] [address] [place] Sodium [Moles/Vol] 136 mmol/L Normal 136-145 [facility] Comment on above: Order Comment: Speci men Type: SWAB Ordering Facility: [facility] Address: [address] [address] Performed By: #### 3 6902-5 #### [facility] CLIA [id number] [address] [place] [address] [place] Urea nitrogen [Mass/Vol] 19 mg/dL Normal 7-26 [facility] Comment on above: Order Comment: Speci men Type: SWAB Ordering Facility: [facility] Address: [address] [place] [address] Performed By: #### 3 6902-5 #### [facility] CLIA [id number] [address] [place] [address] [place] Anion gap [Moles/Vol] 18 mmol/L High 5-16 [facility] Comment on above: Order Comment: Speci men Type: SWAB Ordering Facility: [facility] Address: [address] [place] [address] Performed By: #### 3 6902-5 #### [facility] CLIA [id number] [address] [place] [address] [place] Calcium [Mass/Vol] 8.6 mg/dL Normal 8.5-10.5 [facility] Comment on above: Order Comment: Speci men Type: SWAB Ordering Facility: [facility] Address: [address] [address] Performed By: #### 3 6902-5 #### [facility] CLIA [id number] [address] [place] [address] [place] Chloride [Moles/Vol] 108 mmol/L High 98-107 [facility] Comment on above: Order Comment: Speci men Type: SWAB Ordering Facility: [facility] Address: [address] [place] [address] Performed By: #### 3 6902-5 #### [facility] CLIA [id number] [address] [place] [address] [place] CO2 [Moles/Vol] 12 mmol/L Low 21-32 [facility] Comment on above: Order Comment: Speci men Type: SWAB Ordering Facility: [facility] Address: [address] [address] Performed By: #### 3 6902-5 #### [facility] CLIA [id number] [address] [place] [address] [place] Creatinine [Mass/Vol] 0.75 mg/dL Normal 0.51-0.95 [facility] Comment on above: Order Comment: Speci men Type: SWAB Ordering Facility: [facility] Address: [address] [place] [address] Result Comment: Cleopatra ents receiving either N-Acetylcysteine (NAC) or Metamizole prior to venipuncture, may have falsely depressed results. Performed By: #### 3 6902-5 #### [facility] CLIA [id number] [address] [place] [address] [place] [facility] ESTIMATED GLOMERULAR FILTRATION RATE 111 mL/min/1.73m??? Normal >=60 [facility] Comment on above: Order Comment: Speci men Type: SWAB Ordering Facility: [facility] Address: [address] [place] [address] Result Comment: Janett mated Glomerular Filtration Rate [...] GFR. Performed By: #### 3 6902-5 #### [facility] CLIA [id number] [address] [place] [address] [place] Glucose [Mass/Vol] 421 mg/dL High 70-100 [facility] Comment on above: Order Comment: Speci men Type: SWAB Ordering Facility: [facility] Address: [address] [place] [address] Result Comment: The [place] Diabetes Association (ADA) provides guidance for cutoff [...] Standards of Medical Care in Diabetes 2016, [place] [employer]. Diabetes Care. 2016.39(Suppl 1). Results may be falsely elevated after the administration of Sulfapyridine. Results may be falsely depressed after the administration of Sulfasalazine. Performed By: #### 3 6902-5 #### [facility] CLIA [id number] [address] [place] [address] [place] Potassium [Moles/Vol] 4.8 mmol/L Normal 3.5-5.1 [facility] Comment on above: Order Comment: Speci men Type: SWAB Ordering Facility: [facility] Address: [address] [place] [address] Performed By: #### 3 6902-5 #### [facility] CLIA [id number] [address] [place] [address] [place] Sodium [Moles/Vol] 138 mmol/L Normal 136-145 [facility] Comment on above: Order Comment: Speci men Type: SWAB Ordering Facility: [facility] Address: [address] [place] [address] Performed By: #### 3 6902-5 #### [facility] CLIA [id number] [address] [place] [address] [place] Urea nitrogen [Mass/Vol] 20 mg/dL Normal 7-26 [facility] Comment on above: Order Comment: Speci men Type: SWAB Ordering Facility: [facility] Address: [address] [address] Performed By: #### 3 6902-5 #### [facility] CLIA [id number] [address] [place] [address] [place] CBC W Auto Differential pane l (Bld)on 02-02-2023 Basophils (Bld) [#/Vol] 0.03 10*3/uL Normal <0.11 [facility] Comment on above: Order Comment: Speci men Type: BLOOD SPECIMEN Ordering Facility: [facility] Address: [address] [place] [address] Performed By: #### 3 1201-7, 5195-3, 91351-4, SYPH #### [facility] CLIA [id number] [address] [place] [address] [place] Basophils/100 WBC (Bld) 0.1 % Normal [facility] Comment on above: Order Comment: Speci men Type: BLOOD SPECIMEN Ordering Facility: [facility] Address: [address] [place] [address] Performed By: #### 3 1201-7, 5195-3, 28167-1, SYPH #### [facility] CLIA [id number] [address] [place] [address] [place] Differential cell count method Nom (Bld) Auto Normal [facility] Comment on above: Order Comment: Speci men Type: BLOOD SPECIMEN Ordering Facility: [facility] Address: [address] [address] Performed By: #### 3 1201-7, 5195-3, 35908-1, SYPH #### [facility] CLIA [id number] [address] [place] [address] [place] Eosinophils (Bld) [#/Vol] 10*3/uL Normal <0.46 [facility] Comment on above: Order Comment: Speci men Type: BLOOD SPECIMEN Ordering Facility: [facility] Address: [address] [place] [address] Performed By: #### 3 1201-7, 5195-3, 40273-4, SYPH #### [facility] CLIA [id number] [address] [place] [address] [place] Eosinophils/100 WBC (Bld) 0.0 % Normal [facility] Comment on above: Order Comment: Speci men Type: BLOOD SPECIMEN Ordering Facility: [facility] Address: [address] [address] Performed By: #### 3 1201-7, 5-3, 84634-0, SYPH #### [facility] CLIA [id number] [address] [place] [address] [place] Erythrocyte distribution width (RBC) [Ratio] 14.0 % Normal 11.5-15.0 [facility] Comment on above: Order Comment: Speci men Type: BLOOD SPECIMEN Ordering Facility: [facility] Address: [address] [place] [address] Performed By: #### 3 1201-7, 5194-3, 21271-6, SYPH #### [facility] CLIA [id number] [address] [place] [address] [place] Hematocrit (Bld) [Volume fraction] 33.8 % Low 36.0-46.0 [facility] Comment on above: Order Comment: Speci men Type: BLOOD SPECIMEN Ordering Facility: [facility] Address: [address] [place] [address] Performed By: #### 3 1201-7, 5195-3, 99792-2, SYPH #### [facility] CLIA [id number] [address] [place] [address] [place] Hemoglobin (Bld) [Mass/Vol] 10.8 g/dL Low 11.5-15.5 [facility] Comment on above: Order Comment: Speci men Type: BLOOD SPECIMEN Ordering Facility: [facility] Address: [address] [place] [address] Performed By: #### 3 1201-7, 5195-3, 90866-3, SYPH #### [facility] CLIA [id number] [address] [place] [address] [place] Immature granulocytes (Bld) [#/Vol] 0.19 10*3/uL High <0.10 [facility] Comment on above: Order Comment: Speci men Type: BLOOD SPECIMEN Ordering Facility: [facility] Address: [address] [place] [address] Performed By: #### 3 1201-7, 5195-3, 95810-3, SYPH #### [facility] CLIA [id number] [address] [place] [address] [place] Immature granulocytes/100 WBC (Bld) 0.9 % Normal [facility] Comment on above: Order Comment: Speci men Type: BLOOD SPECIMEN Ordering Facility: [facility] Address: [address] [place] [address] Performed By: #### 3 1201-7, 5195-3, 46777-3, SYPH #### [facility] CLIA [id number] [address] [place] [address] [place] Lymphocytes (Bld) [#/Vol] 2.41 10*3/uL Normal 1.00-4.00 [facility] Comment on above: Order Comment: Speci men Type: BLOOD SPECIMEN Ordering Facility: [facility] Address: [address] [place] [address] Performed By: #### 3 1201-7, 5-3, 85720-6, SYPH #### [facility] CLIA [id number] [address] [place] [address] [place] Lymphocytes/100 WBC (Bld) 11.6 % Normal [facility] Comment on above: Order Comment: Speci men Type: BLOOD SPECIMEN Ordering Facility: [facility] Address: [address] [place] [address] Performed By: #### 3 1201-7, 5195-3, 05508-3, SYPH #### [facility] CLIA [id number] [address] MCH (RBC) [Entitic mass] 29.1 pg Normal 26.0-34.0 [facility] Comment on above: Order Comment: Speci men Type: BLOOD SPECIMEN Ordering Facility: [facility] Address: [address] [place] [address] Performed By: #### 3 1201-7, 5195-3, 24469-8, SYPH #### [facility] CLIA [id number] [address] [place] [address] OF [facility] MCHC (RBC) [Mass/Vol] 32.0 g/dL Normal 30.5-36.0 [facility] Comment on above: Order Comment: Speci men Type: BLOOD SPECIMEN Ordering Facility: [facility] Address: [address] [place] [address] Performed By: #### 3 1201-7, 5195-3, 29705-6, SYPH #### [facility] CLIA [id number] [address] [place] [address] OF [facility] MCV (RBC) [Entitic vol] 91.1 fL Normal 80.0-100.0 [facility] Comment on above: Order Comment: Speci men Type: BLOOD SPECIMEN Ordering Facility: [facility] Address: [address] [place] [address] Performed By: #### 3 1201-7, 5195-3, 20555-2, SYPH #### [facility] CLIA [id number] [address] [place] [address] [place] Monocytes (Bld) [#/Vol] 0.93 10*3/uL High <0.87 [facility] Comment on above: Order Comment: Speci men Type: BLOOD SPECIMEN Ordering Facility: [facility] Address: [address] [place] [address] Performed By: #### 3 1201-7, 5195-3, 77478-7, SYPH #### [facility] CLIA [id number] [address] [place] [address] Monocytes/100 WBC (Bld) 4.5 % Normal [facility] Comment on above: Order Comment: Speci men Type: BLOOD SPECIMEN Ordering Facility: [facility] Address: [address] [address] Performed By: #### 3 1201-7, 5195-3, 87299-4, SYPH #### [facility] CLIA [id number] [address] [place] [address] [place] Neutrophils (Bld) [#/Vol] 17.17 10*3/uL High 1.45-7.50 [facility] Comment on above: Order Comment: Speci men Type: BLOOD SPECIMEN Ordering Facility: [facility] Address: [address] [place] [address] Performed By: #### 3 1201-7, 5195-3, 75299-3, SYPH #### [facility] CLIA [id number] [address] [place] [address] [place] Neutrophils/100 WBC (Bld) 82.9 % Normal [facility] Comment on above: Order Comment: Speci men Type: BLOOD SPECIMEN Ordering Facility: [facility] Address: [address] [place] [address] Performed By: #### 3 1201-7, 5-3, 90957-1, SYPH #### [facility] CLIA [id number] [address] [place] [address] [place] Nucleated RBC (Bld) [#/Vol] 10*3/uL Normal <0.01 [facility] Comment on above: Order Comment: Speci men Type: BLOOD SPECIMEN Ordering Facility: [facility] Address: [address] [place] [address] Performed By: #### 3 1201-7, 5195-3, 75240-9, SYPH #### [facility] CLIA [id number] [address] [place] [address] [place] Nucleated RBC/100 WBC (Bld) [Ratio] 0.0 /100 WBC Normal [facility] Comment on above: Order Comment: Speci men Type: BLOOD SPECIMEN Ordering Facility: [facility] Address: [address] Performed By: #### 3 1201-7, 5195-3, 39636-6, SYPH #### [facility] CLIA [id number] [address] [place] [address] [place] Platelet mean volume (Bld) [Entitic vol] 12.0 fL Normal 9.0-12.7 [facility] Comment on above: Order Comment: Speci men Type: BLOOD SPECIMEN Ordering Facility: [facility] Address: [address] Performed By: #### 3 1201-7, 5195-3, 36750-6, SYPH #### [facility] CLIA [id number] [address] [place] [address] [place] Platelets (Bld) [#/Vol] 164 10*3/uL Normal 150-400 [facility] Comment on above: Order Comment: Speci men Type: BLOOD SPECIMEN Ordering Facility: [facility] Address: [address] Performed By: #### 3 1201-7, 5195-3, 88225-3, SYPH #### [facility] CLIA [id number] [address] [place] [address] [place] RBC (Bld) [#/Vol] 3.71 10*6/uL Low 3.90-5.20 [facility] Comment on above: Order Comment: Speci men Type: BLOOD SPECIMEN Ordering Facility: [facility] Address: [address] [id number] Performed By: #### 3 1201-7, 5195-3, 55810-6, SYPH #### [facility] CLIA [id number] [address] [place] [address] [place] WBC (Bld) [#/Vol] 20.73 10*3/uL High 3.70-11.00 [facility] Comment on above: Order Comment: Speci men Type: BLOOD SPECIMEN Ordering Facility: [facility] Address: [address] [address] Performed By: #### 3 1201-7, 5195-3, 10663-1, SYPH #### [facility] CLIA [id number] [address] [place] [address] OF [place] Gas and Carbon monoxide pane l (BldV)on 02-02-2023 BASE DEFICIT, VENOUS -16 mmol/L Low -2-0 [facility] Comment on above: Order Comment: Speci men Type: SWAB Ordering Facility: [facility] Address: [address] [address] Performed By: #### 3 6902-5 #### [facility] CLIA [id number] [address] [place] [address] [place] Body temperature 98.6 [degF] Normal [facility] Comment on above: Order Comment: Speci men Type: SWAB Ordering Facility: [facility] Address: [address] [address] Performed By: #### 3 6902-5 #### [facility] CLIA [id number] [address] [place] [address] [place] Calcium.ionized (Bld) [Mass/Vol] 1.14 mmol/L Normal 1.08-1.30 [facility] Comment on above: Order Comment: Speci men Type: SWAB Ordering Facility: [facility] Address: [address] [address] Performed By: #### 3 6902-5 #### [facility] CLIA [id number] [address] [place] [address] [place] Carboxyhemoglobin (BldV) [Mass fraction] 1.0 % Normal 0.0-2.0 [facility] Comment on above: Order Comment: Speci men Type: SWAB Ordering Facility: [facility] Address: [address] [address] Result Comment: Carb oxyhemoglobin Reference Range for Smokers: 2.0-8.0% Performed By: #### 3 6902-5 #### [facility] CLIA [id number] [address] [place] [address] [place] CO2 (BldV) [Partial pressure] 22 mm[Hg] Low 42-55 [facility] Comment on above: Order Comment: Speci men Type: SWAB Ordering Facility: [facility] Address: [address] [address] Performed By: #### 3 6902-5 #### [facility] CLIA [id number] [address] [place] [address] [place] Glucose [Mass/Vol] 335 mg/dL High 60-105 [facility] Comment on above: Order Comment: Speci men Type: SWAB Ordering Facility: [facility] Address: [address] [place] [address] Performed By: #### 3 6902-5 #### [facility] CLIA [id number] [address] [place] [address] [place] HCO3 (Bld) [Moles/Vol] 9 mmol/L Low 24-28 [facility] Comment on above: Order Comment: Speci men Type: SWAB Ordering Facility: [facility] Address: [address] [place] [address] Performed By: #### 3 6902-5 #### [facility] IA [id number] [address] [place] [address] [place] Hemoglobin (Bld) [Mass/Vol] 13.1 g/dL Normal 11.5-15.5 [facility] Comment on above: Order Comment: Speci men Type: SWAB Ordering Facility: [facility] Address: [address] [address] Performed By: #### 3 6902-5 #### [facility] CLIA [id number] [address] [place] [address] [place] Lactate [Moles/Vol] 1.8 mmol/L Normal 0.5-2.2 [facility] Comment on above: Order Comment: Speci men Type: SWAB Ordering Facility: [facility] Address: [address] [place] [address] Performed By: #### 3 6902-5 #### [facility] CLIA [id number] [address] [place] [address] [place] Methemoglobin (Bld) [Mass fraction] 0.3 % Normal 0.0-1.5 [facility] Comment on above: Order Comment: Speci men Type: SWAB Ordering Facility: [facility] Address: [address] [place] [address] Performed By: #### 3 6902-5 #### [facility] CLIA [id number] [address] [place] [address] [place] O2 THERAPY RA=Room Air Normal [facility] Comment on above: Order Comment: Speci men Type: SWAB Ordering Facility: [facility] Address: [address] [place] [address] Performed By: #### 3 6902-5 #### [facility] CLIA [id number] [address] [place] [address] [place] Oxygen (BldV) [Partial pressure] 93 mm[Hg] High 35-45 [facility] Comment on above: Order Comment: Speci men Type: SWAB Ordering Facility: [facility] Address: [address] [place] [address] Performed By: #### 3 6902-5 #### [facility] CLIA [id number] [address] [place] [address] [place] Oxyhemoglobin (BldV) [Mass fraction] 94 % Normal 4-98 [facility] Comment on above: Order Comment: Speci men Type: SWAB Ordering Facility: [facility] Address: [address] [place] [address] Performed By: #### 3 6902-5 #### [facility] CLIA [id number] [address] [place], [place] [id number] [place] pH (BldV) 7.24 [pH] Low 7.32-7.42 [facility] Comment on above: Order Comment: Speci men Type: SWAB Ordering Facility: [facility] Address: [address] [place] [address] Performed By: #### 3 6902-5 #### [facility] CLIA [id number] [address] [place] [address] [place] Potassium [Moles/Vol] 5.3 mmol/L Normal 2.5-6.0 [facility] Comment on above: Order Comment: Speci men Type: SWAB Ordering Facility: [facility] Address: [address] [facility] [address] [phone] Performed By: #### 3 6902-5 #### [facility] CLIA [id number] [address] [place] [address] [place] Sodium [Moles/Vol] 131 mmol/L Low 136-144 [facility] Comment on above: Order Comment: Speci men Type: SWAB Ordering Facility: [facility] Address: [address] [phone] Performed By: #### 3 6902-5 #### [facility] CLIA [id number] [address] [place] [address] [place] HISTORY PHYSICALon HISTORY PHYSICAL HNO ID: [id number] Author: Yimi Leroy APRN.FORESTRY TECHNICAL OFFICER Service: Critical Care Author Type: Nurse Practitioner Type: HANDP Filed: 02/02/2023 9:48 AM Note Text: [facility] SERVICE DATE: February 02, 2023 SERVICE TIME: 919 Consulting Doctor: Dr Diana CHIEF COMPLAINT: DKA HPI: This is a 27-year-old white female who presented 2 days ago on 01/31 secondary to nausea and vomiting at home. Patient has a known history of diabetic gastroparesis. She follows in [facility]. She was admitted to [place]. Unfortunately she has not been tolerating p.o. [...] pump (JUSTIN (more content not included)... Normal [facility] KETONES/ACETONE/BHBon 2022 Beta hydroxybutyrate [Moles/Vol] >6.00 High 0.02-0.27 [facility] Comment on above: Order Comment: Speci men Type: SWAB Ordering Facility: [facility] Address: [address] [place], [place] [address] [address] Result Comment: Bloo d ketone levels will vary depending on several factors (for example, food intake, alcohol intake and conditions such as ketoacidosis). Patients should be fasting 12 hours prior to collection. Patient samples with high levels of M-Protein (i.e. Gammopathy) may affect the accuracy of this assay. Performed By: #### 3 6902-5 #### [facility] CLIA [id number] [address] [place] [address] [place] Beta hydroxybutyrate [Moles/Vol] 5.70 mmol/L High 0.02-0.27 [facility] Comment on above: Order Comment: [facility] Type: SWAB Ordering Facility: [facility] Address: [address] [place] [address] Result Comment: Bloo d ketone levels will vary depending on several factors (for example, food intake, alcohol intake and conditions such as ketoacidosis). Patients should be fasting 12 hours prior to collection. Patient samples with high levels of M-Protein (i.e. Gammopathy) may affect the accuracy of this assay. Performed By: #### 3 6902-5 #### [facility] CLIA [id number] [address] [place] [address] [place] Magnesium SerPl-mCncon 02-02 Magnesium [Mass/Vol] 2.3 mg/dL Normal 1.6-2.6 [facility] Comment on above: Order Comment: Jon russ Type: SWAB Ordering Facility: [facility] Address: [address] [place], [place] [phone] Performed By: #### 3 6902-5 #### [facility] CLIA [id number] [address] [place] [address] [place] Procalcitonin SerPl-mCncon 0 02-02-2023 Procalcitonin [Mass/Vol] 0.33 ng/mL Normal 0.00-0.50 [facility] Comment on above: Order Comment: Jon russ Type: BLOOD SPECIMEN Ordering Facility: [facility] Address: [address] [place], [place] [phone] Result Comment: PCT Concentration Interpretation PCT <=0.1 [...] shock. Performed By: #### 3 1201-7, 5195-3, 35194-6, SYPH #### [facility] CLIA [id number] [address] [place] [address] [place] Basic metabolic 2000 panelon 02-01-2023 Anion gap [Moles/Vol] 16 mmol/L Normal 5-16 [facility] Comment on above: Order Comment: Speci men Type: SWAB Ordering Facility: [facility] Address: [address] [place] [address] Performed By: #### 3 6902-5 #### [facility] CLIA [id number] [address] [place] [address] [place] Calcium [Mass/Vol] 8.4 mg/dL Low 8.5-10.5 [facility] Comment on above: Order Comment: Speci men Type: SWAB Ordering Facility: [facility] Address: [address] [place] [address] Performed By: #### 3 6902-5 #### [facility] CLIA [id number] [address] [place] [address] [place] Chloride [Moles/Vol] 108 mmol/L High 98-107 [facility] Comment on above: Order Comment: Speci men Type: SWAB Ordering Facility: [facility] Address: [address] [place] [address] Performed By: #### 3 6902-5 #### [facility] CLIA [id number] [address] [place] [address] [place] CO2 [Moles/Vol] 15 mmol/L Low 21-32 [facility] Comment on above: Order Comment: Speci men Type: SWAB Ordering Facility: [facility] Address: [address] [phone] Performed By: #### 3 6902-5 #### [facility] CLIA [id number] [address] [place] [address] [place] Creatinine [Mass/Vol] 0.89 mg/dL Normal 0.51-0.95 [facility] Comment on above: Order Comment: Speci men Type: SWAB Ordering Facility: [facility] Address: [address] [address] Result Comment: Cleopatra ents receiving either N-Acetylcysteine (NAC) or Metamizole prior to venipuncture, may have falsely depressed results. Performed By: #### 3 6902-5 #### [facility] CLIA [id number] [address] [place] [address] [place] ESTIMATED GLOMERULAR FILTRATION RATE 91 mL/min/1.73m??? Normal >=60 [facility] Comment on above: Order Comment: Speci men Type: SWAB Ordering Facility: [facility] Address: [address] [place] [address] Result Comment: Janett mated Glomerular Filtration Rate [...] GFR. Performed By: #### 3 6902-5 #### [facility] CLIA [id number] [address] [place] [address] [place] Glucose [Mass/Vol] 351 mg/dL High 70-100 [facility] Comment on above: Order Comment: Speci jeb Type: SWAB Ordering Facility: [facility] Address: [address] [address] Result Comment: The [place] Diabetes Association (ADA) provides guidance for cutoff [...] Standards of Medical Care in Diabetes 2016, [place] [employer]. Diabetes Care. 2016.39(Suppl 1). Results may be falsely elevated after the administration of Sulfapyridine. Results may be falsely depressed after the administration of Sulfasalazine. Performed By: #### 3 6902-5 #### [facility] CLIA [id number] [address] [place] [address] [place] Potassium [Moles/Vol] 4.0 mmol/L Normal 3.5-5.1 [facility] Comment on above: Order Comment: Speci men Type: SWAB Ordering Facility: [facility] Address: [address] [place] [address] Performed By: #### 3 6902-5 #### [facility] CLIA [id number] [address] [place] [address] [place] Sodium [Moles/Vol] 139 mmol/L Normal 136-145 [facility] Comment on above: Order Comment: Speci men Type: SWAB Ordering Facility: [facility] Address: [address] [place] [address] Performed By: #### 3 6902-5 #### [facility] CLIA [id number] [address] [place] [address] [place] Urea nitrogen [Mass/Vol] 19 mg/dL Normal 7-26 [facility] Comment on above: Order Comment: Speci men Type: SWAB Ordering Facility: [facility] Address: [address] [place] [address] Performed By: #### 3 6902-5 #### [facility] CLIA [id number] [address] [place] [address] [place] CBC panel Auto (Bld)on 02-01 Erythrocyte distribution width (RBC) [Ratio] 13.3 % Normal 11.5-15.0 [facility] Comment on above: Order Comment: Speci men Type: BLOOD SPECIMENOrdering Facility: [facility] Address: [address] [place] [address] Performed By: #### L [id number] #### [facility] CLIA [id number] [address] [place] [address] OF [place] Hematocrit (Bld) [Volume fraction] 38.4 % Normal 36.0-46.0 [facility] Comment on above: Order Comment: Speci men Type: BLOOD SPECIMENOrdering Facility: [facility] Address: [address] [place] [address] Performed By: #### L [id number] #### [facility] CLIA [id number] [address] [place] [address] [place] Hemoglobin (Bld) [Mass/Vol] 12.6 g/dL Normal 11.5-15.5 [facility] Comment on above: Order Comment: Speci men Type: BLOOD SPECIMENOrdering Facility: [facility] Address: [address] [place] [address] Performed By: #### L [id number] #### [facility] CLIA [id number] [address] [place] [address] [place] MCH (RBC) [Entitic mass] 29.2 pg Normal 26.0-34.0 [facility] Comment on above: Order Comment: Speci men Type: BLOOD SPECIMENOrdering Facility: [facility] Address: [address] [place] [address] Performed By: #### L [id number] #### [facility] CLIA [id number] [address] [place] [address] [place] MCHC (RBC) [Mass/Vol] 32.8 g/dL Normal 30.5-36.0 [facility] Comment on above: Order Comment: Speci men Type: BLOOD SPECIMENOrdering Facility: [facility] Address: [address] Performed By: #### L [id number] #### [facility] CLIA [id number] [address] [place] [address] [place] MCV (RBC) [Entitic vol] 88.9 fL Normal 80.0-100.0 [facility] Comment on above: Order Comment: Speci men Type: BLOOD SPECIMENOrdering Facility: [facility] Address: [address] [address] Performed By: #### L [id number] #### [facility] CLIA [id number] [address] [place] [address] [place] Nucleated RBC (Bld) [#/Vol] 10*3/uL Normal <0.01 [facility] Comment on above: Order Comment: Speci men Type: BLOOD SPECIMENOrdering Facility: [facility] Address: [address] [address] Performed By: #### L [id number] #### [facility] CLIA [id number] [address] [place] [address] [place] Platelet mean volume (Bld) [Entitic vol] 13.5 fL High 9.0-12.7 [facility] Comment on above: Order Comment: Speci men Type: BLOOD SPECIMENOrdering Facility: [facility] Address: [address] [address] Performed By: #### L [id number] #### [facility] CLIA [id number] [address] [place] [address] [place] Platelets (Bld) [#/Vol] 139 10*3/uL Low 150-400 [facility] Comment on above: Order Comment: Speci men Type: BLOOD SPECIMENOrdering Facility: [facility] Address: [address] [address] Result Comment: No c lot detected. Performed By: #### L [id number] #### [facility] CLIA [id number] [address] [place] [address] [place] [facility] OF [place] RBC (Bld) [#/Vol] 4.32 10*6/uL Normal 3.90-5.20 [facility] Comment on above: Order Comment: Speci men Type: BLOOD SPECIMENOrdering Facility: [facility] Address: [address] [phone] Performed By: #### L [id number] #### [facility] CLIA [id number] [address] [place] [address] [place] WBC (Bld) [#/Vol] 16.97 10*3/uL High 3.70-11.00 [facility] Comment on above: Order Comment: Speci men Type: BLOOD SPECIMENOrdering Facility: [facility] Address: [address] [phone] Performed By: #### L [id number] #### [facility] CLIA [id number] [address] [place] [address] OF [facility] CNPDanitza 02-01-2023 CNPN Telephone (FAMPOR) KATHLEEN VILLA ([id number]) 1995 F T Date Time Provider Department [...] (BAQSIMI) 3 mg/actuation nasal spray Use 1 [place] in the nose as needed for low [...] irregularity [N92.6] (more content not included)... Normal [facility] Comprehensive metabolic 2000 panelon 02-01-2023 Albumin [Mass/Vol] 3.8 g/dL Normal 3.2-5.0 [facility] Comment on above: Order Comment: Speci men Type: BLOOD SPECIMENOrdering Facility: [facility] Address: [address] [place] [address] Performed By: #### L [id number] #### [facility] CLIA [id number] [address] [place] [address] [place] ALP [Catalytic activity/Vol] 84 U/L Normal 45-117 [facility] Comment on above: Order Comment: Speci men Type: BLOOD SPECIMENOrdering Facility: [facility] Address: [address] [address] Performed By: #### L [id number] #### [facility] CLIA [id number] [address] [place] [address] [place] ALT [Catalytic activity/Vol] 19 U/L Normal 13-61 [facility] Comment on above: Order Comment: Speci men Type: BLOOD SPECIMENOrdering Facility: [facility] Address: [address] [place] [address] Result Comment: Resu lts may be falsely depressed after the administration of Sulfasalazine and/or Sulfapyridine. Performed By: #### L [id number] #### [facility] CLIA [id number] [address] [place] [address] [place] Anion gap [Moles/Vol] 16 mmol/L Normal 5-16 [facility] Comment on above: Order Comment: Speci men Type: BLOOD SPECIMENOrdering Facility: [facility] Address: [address] [place] [address] Performed By: #### L [id number] #### [facility] CLIA [id number] [address] [place] [address] [place] AST [Catalytic activity/Vol] 15 U/L Normal 8-34 [facility] Comment on above: Order Comment: Speci men Type: BLOOD SPECIMENOrdering Facility: [facility] Address: [address] [place] [address] Result Comment: Resu lts may be falsely depressed after the administration of Sulfasalazine and/or Sulfapyridine. Performed By: #### L [id number] #### [facility] CLIA [id number] [address] [place] [address] [place] Bilirubin [Mass/Vol] 0.7 mg/dL Normal 0.2-1.0 [facility] Comment on above: Order Comment: Speci men Type: BLOOD SPECIMENOrdering Facility: [facility] Address: [address] [place] [address] Performed By: #### L [id number] #### [facility] CLIA [id number] [address] [place] [address] [place] Calcium [Mass/Vol] 8.7 mg/dL Normal 8.5-10.5 [facility] Comment on above: Order Comment: Speci men Type: BLOOD SPECIMENOrdering Facility: [facility] Address: [address] [address] Performed By: #### L [id number] #### [facility] CLIA [id number] [address] [place] [address] [place] Chloride [Moles/Vol] 110 mmol/L High 98-107 [facility] Comment on above: Order Comment: Speci men Type: BLOOD SPECIMENOrdering Facility: [facility] Address: [address] [place] [address] Performed By: #### L [id number] #### [facility] CLIA [id number] [address] [place] [address] [place] CO2 [Moles/Vol] 15 mmol/L Low 21-32 [facility] Comment on above: Order Comment: Speci men Type: BLOOD SPECIMENOrdering Facility: [facility] Address: [address] [place] [address] Performed By: #### L [id number] #### [facility] CLIA [id number] [address] [place] [address] [place] Creatinine [Mass/Vol] 0.66 mg/dL Normal 0.51-0.95 [facility] Comment on above: Order Comment: Speci men Type: BLOOD SPECIMENOrdering Facility: [facility] Address: [address] [place] [address] Result Comment: Cleopatra ents receiving either N-Acetylcysteine (NAC) or Metamizole prior to venipuncture, may have falsely depressed results. Performed By: #### L [id number] #### [facility] CLIA [id number] [address] [place] [address] [place] ESTIMATED GLOMERULAR FILTRATION RATE 123 mL/min/1.73m??? Normal >=60 [facility] Comment on above: Order Comment: Speci men Type: BLOOD SPECIMENOrdering Facility: [facility] Address: [address] [place] [address] Result Comment: Janett mated Glomerular Filtration Rate [...] reflect actual GFR. Performed By: #### L [id number] #### [facility] CLIA [id number] [address] [place] [address] [place] Glucose [Mass/Vol] 311 mg/dL High 70-100 [facility] Comment on above: Order Comment: Jon russ Type: BLOOD SPECIMENOrdering Facility: [facility] Address: [address] [place], [place] [phone] Result Comment: The [place] Diabetes Association (ADA) provides guidance for cutoff [...] Standards of Medical Care in Diabetes 2016, [place] [employer]. Diabetes Care. 2016.39(Suppl 1). Results may be falsely elevated after the administration of Sulfapyridine. Results may be falsely depressed after the administration of Sulfasalazine. Performed By: #### L [id number] #### [facility] CLIA [id number] [address] [place] [address] [place] Potassium [Moles/Vol] 4.4 mmol/L Normal 3.5-5.1 [facility] Comment on above: Order Comment: Jon russ Type: BLOOD SPECIMENOrdering Facility: [facility] Address: [address] [phone] Performed By: #### L [id number] #### [facility] CLIA [id number] [address] [place] [address] [place] Protein [Mass/Vol] 6.5 g/dL Normal 6.0-8.5 [facility] Comment on above: Order Comment: Jon russ Type: BLOOD SPECIMENOrdering Facility: [facility] Address: [address] [place] [address] Performed By: #### L [id number] #### [facility] CLIA [id number] [address] [place] [address] [place] Sodium [Moles/Vol] 141 mmol/L Normal 136-145 [facility] Comment on above: Order Comment: Belindai men Type: BLOOD SPECIMENOrdering Facility: [facility] Address: [address] [place] [address] Performed By: #### L [id number] #### [facility] CLIA [id number] [address] [place] [address] [place] Urea nitrogen [Mass/Vol] 15 mg/dL Normal 7-26 [facility] Comment on above: Order Comment: Belindai men Type: BLOOD SPECIMENOrdering Facility: [facility] Address: [address] [place] [address] Performed By: #### L [id number] #### [facility] LABORATORY CLIA [id number] [address] [place] [address] OF [place] ED PROV NOTEon 02-01-2023 ED PROV NOTE HNO ID: [id number] Author: Adryan Alexis PA-C Service: ? Author Type: Physician Development Analyst Type: ED Provider Notes Filed: 01/31/2023 [...] SEPSIS LACT (more content not included)... Normal [facility] HISTORY PHYSICALon HISTORY PHYSICAL HNO ID: [id number] Author: Camilo Centeno DO Service: Hospital Medicine Author Type: Physician Type: HANDP Filed: 02/01/2023 8:08 AM Note Text: HISTORY AND PHYSICAL SERVICE DATE: 01/31/2023 SERVICE TIME: 11:46 PM PRIMARY CARE PHYSICIAN: Vivi Smith MD Subjective CHIEF COMPLAINT: Abdominal pain, nausea, and vomiting HPI: Patient is a 27-year-old female who presented to the [facility] emergency department earlier this evening for [...] (BAQSIMI) 3 mg/actuation nasal spray Use 1 [place] in the nose as needed for low [...] or rhonchi (more content not included)... Normal [facility] Magnesium SerPl-mCncon 02-01 Magnesium [Mass/Vol] 1.7 mg/dL Normal 1.6-2.6 [facility] Comment on above: Order Comment: Speci men Type: BLOOD SPECIMENOrdering Facility: [facility] Address: [address] [place] [address] [place] [address] Performed By: #### L [id number] #### [facility] CLIA [id number] [address] [place] [address] [facility] NURSING PROGon 02-01-2023 NURSING PROG HNO ID: [id number] Author: Avani Seo RN Service: Nursing Author [...] error. 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 It is now disconnected and she will now take sliding scale insulin for coverage. Normal [facility] Urinalysis complete panel (U )on 02-01-2023 Bacteria LM.HPF (Urine sed) [#/Area] Rare Abnormal None Seen [facility] Comment on above: Order Comment: Speci men Type: URINE SPECIMENOrdering Facility: [facility] Address: [address] [place] [address] Performed By: #### L [id number] #### [facility] CLIA [id number] [address] [place] [address] [place] Bilirubin Ql (U) Negative Normal Negative [facility] Comment on above: Order Comment: Speci men Type: URINE SPECIMENOrdering Facility: [facility] Address: [address] [address] Performed By: #### L [id number] #### [facility] CLIA [id number] [address] [place] [address] Clarity (Unsp spec) Clear Normal Clear [facility] Comment on above: Order Comment: Speci men Type: URINE SPECIMENOrdering Facility: [facility] Address: [address] [place] [address] Performed By: #### L [id number] #### [facility] CLIA [id number] [address] [place] [address] [place] Color (U) Yellow Normal Yellow [facility] Comment on above: Order Comment: Speci men Type: URINE SPECIMENOrdering Facility: [facility] Address: [address] [place] [address] Performed By: #### L [id number] #### [facility] CLIA [id number] [address] [place] [address] [place] Epithelial cells LM.HPF (Urine sed) [#/Area] Few Normal [facility] Comment on above: Order Comment: Speci men Type: URINE SPECIMENOrdering Facility: [facility] Address: [address] [place] [address] Performed By: #### L [id number] #### [facility] CLIA [id number] [address] [place] [address] [place] Glucose Test strip (U) [Mass/Vol] 3+ Abnormal Negative [facility] Comment on above: Order Comment: Speci men Type: URINE SPECIMENOrdering Facility: [facility] Address: [address] [place] [address] Performed By: #### L [id number] #### [facility] CLIA [id number] [address] [place] [address] OF [place] Hemoglobin Ql (U) 2+ Abnormal Negative [facility] Comment on above: Order Comment: Speci men Type: URINE SPECIMENOrdering Facility: [facility] Address: [address] [place] [address] Performed By: #### L [id number] #### [facility] CLIA [id number] [address] [place] [address] [place] Ketones Ql (U) 2+ Abnormal Negative [facility] Comment on above: Order Comment: Speci men Type: URINE SPECIMENOrdering Facility: [facility] Address: [address] [place] [address] Performed By: #### L [id number] #### [facility] CLIA [id number] [address] [place] [address] [place] Leukocyte esterase Test strip Ql (U) Negative Normal Negative [facility] Comment on above: Order Comment: Speci men Type: URINE SPECIMENOrdering Facility: [facility] Address: [address] [place] [address] Performed By: #### L [id number] #### [facility] CLIA [id number] [address] [place] [address] [place] Nitrite Ql (U) Negative Normal Negative [facility] Comment on above: Order Comment: Speci men Type: URINE SPECIMENOrdering Facility: [facility] Address: [address] [place] [address] Performed By: #### L [id number] #### [facility] CLIA [id number] [address] [place] [address] [place] pH (U) 7.0 [pH] Normal 5.0-8.0 [facility] Comment on above: Order Comment: Speci men Type: URINE SPECIMENOrdering Facility: [facility] Address: [address] [place] [address] Performed By: #### L [id number] #### [facility] CLIA [id number] [address] [place] [address] [place] Protein (U) [Mass/Vol] 1+ Abnormal Negative [facility] Comment on above: Order Comment: Speci men Type: URINE SPECIMENOrdering Facility: [facility] Address: [address] [place] [address] Performed By: #### L [id number] #### [facility] CLIA [id number] [address] [place] [address] RBC LM.HPF (Urine sed) [#/Area] 3-5 /HPF Abnormal 0-3 /HPF [facility] Comment on above: Order Comment: Speci men Type: URINE SPECIMENOrdering Facility: [facility] Address: [address] [place] [address] Performed By: #### L [id number] #### [facility] CLIA [id number] [address] [place] [address] Specific gravity (U) [Rel density] 1.021 Normal 1.005-1.030 [facility] Comment on above: Order Comment: Speci men Type: URINE SPECIMENOrdering Facility: [facility] Address: [address] [place] [address] Performed By: #### L [id number] #### [facility] CLIA [id number] [address] [place] [address] Urobilinogen Ql (U) Negative Normal Negative [facility] Comment on above: Order Comment: Speci men Type: URINE SPECIMENOrdering Facility: [facility] Address: [address] [place] [address] Performed By: #### L [id number] #### [facility] CLIA [id number] [address] [place] [address] [place] WBC LM.HPF (Urine sed) [#/Area] 0-5 /HPF Normal 0-5 /HPF [facility] Comment on above: Order Comment: Speci men Type: URINE SPECIMENOrdering Facility: [facility] Address: [address] [address] Performed By: #### L [id number] #### [facility] CLIA [id number] [address] [place] [address] [place] Basic metabolic 2000 panelon 01-31-2023 Anion gap [Moles/Vol] 16 mmol/L Normal 5-16 [facility] Comment on above: Order Comment: Speci men Type: BLOOD SPECIMENOrdering Facility: [facility] Address: [address] [place] [address] Performed By: #### 2 4325-3, 80726-9, HCG ####[facility] LABORATORYCLIA [id number] [place] [address] [place] Calcium [Mass/Vol] 9.9 mg/dL Normal 8.5-10.5 [facility] Comment on above: Order Comment: Speci men Type: BLOOD SPECIMENOrdering Facility: [facility] Address: [address] [place] [address] Performed By: #### 2 4325-3, 20921-5, HCG ####[facility] LABORATORYCLIA [id number] [place] [address] [place] Chloride [Moles/Vol] 110 mmol/L High 98-107 [facility] Comment on above: Order Comment: Speci men Type: BLOOD SPECIMENOrdering Facility: [facility] Address: [address] [address] Performed By: #### 2 4325-3, 11319-3, HCG ####[facility] LABORATORYCLIA [id number] [place] [address] [place] CO2 [Moles/Vol] 15 mmol/L Low 21-32 [facility] Comment on above: Order Comment: Speci men Type: BLOOD SPECIMENOrdering Facility: [facility] Address: [address] [place] [address] Performed By: #### 2 4325-3, 14163-1, HCG ####[facility] LABORATORYCLIA [id number] [place] [address] [place] Creatinine [Mass/Vol] 0.65 mg/dL Normal 0.51-0.95 [facility] Comment on above: Order Comment: Speci men Type: BLOOD SPECIMENOrdering Facility: [facility] Address: [address] [address] Result Comment: Cleopatra ents receiving either N-Acetylcysteine (NAC) or Metamizole prior to venipuncture, may have falsely depressed results. Performed By: #### 2 4325-3, 92989-1, HCG ####[facility] LABORATORYCLIA [id number] [address] OF [facility] ESTIMATED GLOMERULAR FILTRATION RATE 123 mL/min/1.73m??? Normal >=60 [facility] Comment on above: Order Comment: Speci men Type: BLOOD SPECIMENOrdering Facility: [facility] Address: [address] [address] Result Comment: Janett mated Glomerular Filtration Rate [...] actual GFR. Performed By: #### 2 4325-3, 17783-2, HCG ####[facility] LABORATORYCLIA [id number] [place] [address] [place] Glucose [Mass/Vol] 248 mg/dL High 70-100 [facility] Comment on above: Order Comment: Speci men Type: BLOOD SPECIMENOrdering Facility: [facility] Address: [address] [address] Result Comment: The [place] Diabetes Association (ADA) provides guidance for cutoff [...] Standards of Medical Care in Diabetes 2016, [place] [employer]. Diabetes Care. 2016.39(Suppl 1). Results may be falsely elevated after the administration of Sulfapyridine. Results may be falsely depressed after the administration of Sulfasalazine. Performed By: #### 2 4325-3, 38636-9, HCG ####[facility]ORATORYCLIA [id number] [place] [address] [place] Potassium [Moles/Vol] 3.8 mmol/L Normal 3.5-5.1 [facility] Comment on above: Order Comment: Speci men Type: BLOOD SPECIMENOrdering Facility: [facility] Address: [address] [address] Performed By: #### 2 4325-3, 70703-2, HCG ####[facility] LABORATORYCLIA [id number] [place] [address] [place] Sodium [Moles/Vol] 141 mmol/L Normal 136-145 [facility] Comment on above: Order Comment: Speci men Type: BLOOD SPECIMENOrdering Facility: [facility] Address: [address] [address] Performed By: #### 2 5-3, 69988-0, HCG ####[facility]ORATORYCLIA [id number] [place] [address] [place] Urea nitrogen [Mass/Vol] 17 mg/dL Normal 7-26 [facility] Comment on above: Order Comment: Speci men Type: BLOOD SPECIMENOrdering Facility: [facility] Address: [address] [address] Performed By: #### 2 4325-3, 37794-5, HCG ####[facility]ORATORYCLIA [id number] [place] [address] [place] CBC W Auto Differential pane l (Bld)on 01-31-2023 Basophils (Bld) [#/Vol] 0.07 10*3/uL Normal <0.11 [facility] Comment on above: Order Comment: Speci men Type: BLOOD SPECIMENOrdering Facility: [facility] Address: [address] [place] [address] Performed By: #### 5 7021-8 ####[facility] LABORATORYCLIA [id number] [place] [address] [place] Basophils/100 WBC (Bld) 0.5 % Normal [facility] Comment on above: Order Comment: Speci men Type: BLOOD SPECIMENOrdering Facility: [facility] Address: [address] [place] [address] Performed By: #### 5 7021-8 ####[facility] LABORATORYCLIA [id number] [address] [place] Differential cell count method Nom (Bld) Auto Normal [facility] Comment on above: Order Comment: Speci men Type: BLOOD SPECIMENOrdering Facility: [facility] Address: [address] [place] [address] Performed By: #### 5 7021-8 ####[facility] LABORATORYCLIA [id number] [place] [address] [place] Eosinophils (Bld) [#/Vol] 10*3/uL Normal <0.46 [facility] Comment on above: Order Comment: Speci men Type: BLOOD SPECIMENOrdering Facility: [facility] Address: [address] [place] [address] Performed By: #### 5 7021-8 ####[facility] LABORATORYCLIA [id number] [address] [place] Eosinophils/100 WBC (Bld) 0.1 % Normal [facility] Comment on above: Order Comment: Speci men Type: BLOOD SPECIMENOrdering Facility: [facility] Address: [address] [address] Performed By: #### 5 7021-8 ####[facility] LABORATORYCLIA [id number] [address] [place] Erythrocyte distribution width (RBC) [Ratio] 12.9 % Normal 11.5-15.0 [facility] Comment on above: Order Comment: Speci men Type: BLOOD SPECIMENOrdering Facility: [facility] Address: [address] [address] Performed By: #### 5 7021-8 ####[facility] LABORATORYCLIA [id number] [address] OF [place] Hematocrit (Bld) [Volume fraction] 43.2 % Normal 36.0-46.0 [facility] Comment on above: Order Comment: Speci men Type: BLOOD SPECIMENOrdering Facility: [facility] Address: [address] [address] Performed By: #### 5 7021-8 ####[facility] LABORATORYCLIA [id number] [place] [address] [place] Hemoglobin (Bld) [Mass/Vol] 14.8 g/dL Normal 11.5-15.5 [facility] Comment on above: Order Comment: Speci men Type: BLOOD SPECIMENOrdering Facility: [facility] Address: [address] [address] Performed By: #### 5 7021-8 ####[facility]ORATORYCLIA [id number] [place] [address] [place] Immature granulocytes (Bld) [#/Vol] 0.12 10*3/uL High <0.10 [facility] Comment on above: Order Comment: Speci men Type: BLOOD SPECIMENOrdering Facility: [facility] Address: [address] [address] Performed By: #### 5 7021-8 ####[facility] LABORATORYCLIA [id number] [place] [address] [place] Immature granulocytes/100 WBC (Bld) 0.8 % Normal [facility] Comment on above: Order Comment: Speci men Type: BLOOD SPECIMENOrdering Facility: [facility] Address: [address] [address] Performed By: #### 5 7021-8 ####[facility] LABORATORYCLIA [id number] [place] [address] [place] Lymphocytes (Bld) [#/Vol] 2.36 10*3/uL Normal 1.00-4.00 [facility] Comment on above: Order Comment: Speci men Type: BLOOD SPECIMENOrdering Facility: [facility] Address: [address] [address] Performed By: #### 5 7021-8 ####[facility] LABORATORYCLIA [id number] [address] OF [place] Lymphocytes/100 WBC (Bld) 15.3 % Normal [facility] Comment on above: Order Comment: Speci men Type: BLOOD SPECIMENOrdering Facility: [facility] Address: [address] [address] Performed By: #### 5 7021-8 ####[facility] LABORATORYCLIA [id number] [place] [address] [place] MCH (RBC) [Entitic mass] 29.1 pg Normal 26.0-34.0 [facility] Comment on above: Order Comment: Speci men Type: BLOOD SPECIMENOrdering Facility: [facility] Address: [address] Performed By: #### 5 7021-8 ####[facility] LABORATORYCLIA [id number] [address] [place] MCHC (RBC) [Mass/Vol] 34.3 g/dL Normal 30.5-36.0 [facility] Comment on above: Order Comment: Speci men Type: BLOOD SPECIMENOrdering Facility: [facility] Address: [address] Performed By: #### 5 7021-8 ####[facility] LABORATORYCLIA [id number] [place] [address] [place] MCV (RBC) [Entitic vol] 84.9 fL Normal 80.0-100.0 [facility] Comment on above: Order Comment: Speci men Type: BLOOD SPECIMENOrdering Facility: [facility] Address: [address] [place] [address] Performed By: #### 5 7021-8 ####[facility] LABORATORYCLIA [id number] [place] [address] [place] Monocytes (Bld) [#/Vol] 0.73 10*3/uL Normal <0.87 [facility] Comment on above: Order Comment: Speci men Type: BLOOD SPECIMENOrdering Facility: [facility] Address: [address] [place] [address] Performed By: #### 5 7021-8 ####[facility] LABORATORYCLIA [id number] [address] Monocytes/100 WBC (Bld) 4.7 % Normal [facility] Comment on above: Order Comment: Speci men Type: BLOOD SPECIMENOrdering Facility: [facility] Address: [address] [place] [address] Performed By: #### 5 7021-8 ####[facility] LABORATORYCLIA [id number] [place] [address] [place] Neutrophils (Bld) [#/Vol] 12.16 10*3/uL High 1.45-7.50 [facility] Comment on above: Order Comment: Speci men Type: BLOOD SPECIMENOrdering Facility: [facility] Address: [address] [place] [address] Performed By: #### 5 7021-8 ####[facility] LABORATORYCLIA [id number] [address] [place] Neutrophils/100 WBC (Bld) 78.6 % Normal [facility] Comment on above: Order Comment: Speci men Type: BLOOD SPECIMENOrdering Facility: [facility] Address: [address] [address] Performed By: #### 5 7021-8 ####[facility] LABORATORYCLIA [id number] [address] Nucleated RBC (Bld) [#/Vol] 10*3/uL Normal <0.01 [facility] Comment on above: Order Comment: Speci men Type: BLOOD SPECIMENOrdering Facility: [facility] Address: [address] [address] Performed By: #### 5 7021-8 ####[facility] LABORATORYCLIA [id number] [address] OF [facility] Nucleated RBC/100 WBC (Bld) [Ratio] 0.0 /100 WBC Normal [facility] Comment on above: Order Comment: Speci men Type: BLOOD SPECIMENOrdering Facility: [facility] Address: [address] [address] Performed By: #### 5 7021-8 ####[facility] LABORATORYCLIA [id number] [place] [address] [place] Platelet mean volume (Bld) [Entitic vol] 13.0 fL High 9.0-12.7 [facility] Comment on above: Order Comment: Speci men Type: BLOOD SPECIMENOrdering Facility: [facility] Address: [address] [address] Performed By: #### 5 7021-8 ####[facility] LABORATORYCLIA [id number] [place] [address] [place] Platelets (Bld) [#/Vol] 180 10*3/uL Normal 150-400 [facility] Comment on above: Order Comment: Speci men Type: BLOOD SPECIMENOrdering Facility: [facility] Address: [address] [address] Result Comment: No c lot detected. Performed By: #### 5 7021-8 ####[facility] LABORATORYCLIA [id number] [address] OF [place] RBC (Bld) [#/Vol] 5.09 10*6/uL Normal 3.90-5.20 [facility] Comment on above: Order Comment: Speci men Type: BLOOD SPECIMENOrdering Facility: [facility] Address: [place] [address] Performed By: #### 5 7021-8 ####[facility] LABORATORYCLIA [id number] [address] WBC (Bld) [#/Vol] 15.46 10*3/uL High 3.70-11.00 [facility] Comment on above: Order Comment: Speci men Type: BLOOD SPECIMENOrdering Facility: [facility] Address: [place] [address] Performed By: #### 5 7021-8 ####[facility] LABORATORYCLIA [id number] [address] ECG COMPLETEon 01-31-2023 ECG COMPLETE Ventricular Rate : 8 0 BPM Atrial Rate : 80 BPM P-R Interval : 144 ms QRS Duration : 84 ms Q-T Interval : 402 ms QTC Calculation(Bazett) : 463 ms Calculated P [place] : 26 degrees Calculated R [place] : 78 degrees Calculated T [place] : 72 degrees Normal sinus rhythm Nonspecific T wave abnormality Abnormal ECG When compared with ECG of 23-NOV-2022 18:14, Nonspecific T wave abnormality now evident in Lateral leads QT has lengthened Confirmed by ANASTASIA CHENG MD ([id number]) on 01/31/2023 11:03:12 PM NAME : KATHLEEN VILLA PID : [id number] : 1995 Gender : Female Race : ORD : [id number] Procedure Date : Jan 31 2023 19:42:30 Edit Date : Jan 31 2023 23:03:15 Diagnosis: Normal sinus rhythm Nonspecific T wave abnormality Abnormal ECG When compared with ECG of 23-NOV-2022 18:14, Nonspecific T wave abnormality now evident in Lateral leads QT has lengthened Confirmed by ANASTASIA CHENG MD ([id number]) on 01/31/2023 11:03:12 PM Test Reason : STAT Location : 0 : ED 9 Overread By : ANASTASIA CHENG MD Edited By : ANASTASIA CHENG MD Referred By : , Acquired by : [facility], [facility] ED NOTEon 01-31-2023 ED NOTE HNO ID: [id number] Author: Clementina Alarcon RN Service: Nursing Author Type: Registered Nurse Type: ED Notes Filed: 01/31/2023 9:06 PM Note Text: Report to oncoming nurse. [facility] ED NOTE HNO ID: [id number] Author: Blaise Flower RN Service: ? Author Type: Registered Nurse Type: ED Notes Filed: 01/31/2023 7:21 PM Note Text: Bed: 09-ED Expected date: 01/31/23 Expected time: Means of arrival: Comments: [facility] ED Triage Noteon 01-31-2023 ED Triage Note HNO ID: [id number] Author: Huy Horton PA-C Service: ? Author Type: Physician Development Analyst Type: ED Triage Notes Filed: 01/31/2023 [...] obtained and pending. SIGNATURE: Huy Horton PA-C [facility] Gas and Carbon monoxide pane l (BldV)on 01-31-2023 BASE DEFICIT, VENOUS -2 mmol/L Normal -2-0 [facility] Comment on above: Order Comment: Speci men Type: VENOUS BLOOD SPECIMENOrdering Facility: [facility] Address: [address] [place], [place] [address] Performed By: #### 2 4344-4 ####[facility] RESPIR[facility] THERAPYCLIA [id number] [address] [place] Body temperature 98.6 [degF] [facility] Comment on above: Order Comment: Speci men Type: VENOUS BLOOD SPECIMENOrdering Facility: [facility] Address: [address] [place], [place] [address] Performed By: #### 2 4344-4 ####[facility] RES[facility]ORY THERAPYCLIA [id number] [place] [address] [place] Calcium.ionized (Bld) [Mass/Vol] 1.11 mmol/L Normal 1.08-1.30 [facility] Comment on above: Order Comment: Speci men Type: VENOUS BLOOD SPECIMENOrdering Facility: [facility] Address: [address] [address] Performed By: #### 2 4344-4 ####[facility] THERAPYCLIA [id number] [address] [place] Carboxyhemoglobin (BldV) [Mass fraction] 0.8 % Normal 0.0-2.0 [facility] Comment on above: Order Comment: Speci men Type: VENOUS BLOOD SPECIMENOrdering Facility: [facility] Address: [address] [address] Result Comment: Carb oxyhemoglobin Reference Range for Smokers: 2.0-8.0% Performed By: #### 2 4344-4 ####[facility] THERAPYCLIA [id number] [address] OF [place] CO2 (BldV) [Partial pressure] 22 mm[Hg] Low 42-55 [facility] Comment on above: Order Comment: Speci men Type: VENOUS BLOOD SPECIMENOrdering Facility: [facility] Address: [address] [address] Performed By: #### 2 4344-4 ####[facility] THERAPYCLIA [id number] [place] [address] [place] Glucose [Mass/Vol] 303 mg/dL High 60-105 [facility] Comment on above: Order Comment: Speci men Type: VENOUS BLOOD SPECIMENOrdering Facility: [facility] Address: [address] [address] Performed By: #### 2 4344-4 ####[facility] THERAPYCLIA [id number] [place] [address] [place] HCO3 (Bld) [Moles/Vol] 18 mmol/L Low 24-28 [facility] Comment on above: Order Comment: Speci men Type: VENOUS BLOOD SPECIMENOrdering Facility: [facility] Address: [address] [place] [address] Performed By: #### 2 4344-4 ####[facility] THERAPYCLIA [id number] [place] [address] [place] Hemoglobin (Bld) [Mass/Vol] 15.2 g/dL Normal 11.5-15.5 [facility] Comment on above: Order Comment: Speci men Type: VENOUS BLOOD SPECIMENOrdering Facility: [facility] Address: [address] [place] [address] Performed By: #### 2 4344-4 ####[facility] THERAPYCLIA [id number] [address] OF [place] Lactate [Moles/Vol] 2.1 mmol/L Normal 0.5-2.2 [facility] Comment on above: Order Comment: Speci men Type: VENOUS BLOOD SPECIMENOrdering Facility: [facility] Address: [address] [place] [address] Performed By: #### 2 4344-4 ####[facility] THERAPYCLIA [id number] [address] OF [place] Methemoglobin (Bld) [Mass fraction] 0.3 % Normal 0.0-1.5 [facility] Comment on above: Order Comment: Speci men Type: VENOUS BLOOD SPECIMENOrdering Facility: [facility] Address: [address] [address] Performed By: #### 2 4344-4 ####[facility] THERAPYCLIA [id number] [address] OF [place] O2 THERAPY RA=Room Air Normal [facility] Comment on above: Order Comment: Speci men Type: VENOUS BLOOD SPECIMENOrdering Facility: [facility] Address: [address] [place] [address] Performed By: #### 2 4344-4 ####[facility] THERAPYCLIA [id number] [address] OF [place] Oxygen (BldV) [Partial pressure] 28 mm[Hg] Low 35-45 [facility] Comment on above: Order Comment: Speci men Type: VENOUS BLOOD SPECIMENOrdering Facility: [facility] Address: [address] [place] [address] Performed By: #### 2 4344-4 ####[facility] THERAPYCLIA [id number] [place] [address] [place] Oxyhemoglobin (BldV) [Mass fraction] 63 % Normal 4-98 [facility] Comment on above: Order Comment: Speci men Type: VENOUS BLOOD SPECIMENOrdering Facility: [facility] Address: [address] [place] [address] Performed By: #### 2 4344-4 ####[facility] THERAPYCLIA [id number] [place] [address] [place] pH (BldV) 7.53 [pH] High 7.32-7.42 [facility] Comment on above: Order Comment: Speci men Type: VENOUS BLOOD SPECIMENOrdering Facility: [facility] Address: [address] [place] [address] Performed By: #### 2 4344-4 ####[facility] THERAPYCLIA [id number] [place] [address] [place] Potassium [Moles/Vol] 3.9 mmol/L Normal 2.5-6.0 [facility] Comment on above: Order Comment: Speci men Type: VENOUS BLOOD SPECIMENOrdering Facility: [facility] Address: [address] [place] [address] Performed By: #### 2 4344-4 ####[facility] THERAPYCLIA [id number] [address] [place] Sodium [Moles/Vol] 138 mmol/L Normal 136-144 [facility] Comment on above: Order Comment: Speci men Type: VENOUS BLOOD SPECIMENOrdering Facility: [facility] Address: [address] Performed By: #### 2 4344-4 ####[facility] THERAPYCLIA [id number] [place] [address] [place] HCG QUAL BLDon 01-31-2023 HCG, QUALITATIVE Negative Normal Negative [facility] Comment on above: Order Comment: Speci men Type: BLOOD SPECIMENOrdering Facility: [facility] Address: [address] [address] Performed By: #### 2 4325-3, 09395-1, HCG ####[facility] LABORATORYCLIA [id number] [address] [place] HIGH SENSITIVITY TROPONIN Io n 01-31-2023 Tropinin I.cardiac panel High sensitivity method <2.5 Normal 0.0-34.0 [facility] Comment on above: Order Comment: Speci men Type: BLOOD SPECIMENOrdering Facility: [facility] Address: [address] [place] [address] Result Comment: This assay uses different antibodies than our current assay, and assays, even by the same compressed gas plant worker may recognize different regions of the antibody and cannot be used interchangeably. Expect results of this assay to run higher than the previous assay. Performed By: #### H STROP ####[facility] LABORATORYCLIA [id number] [address] [place] Hepatic function 2000 panelo n 01-31-2023 Albumin [Mass/Vol] 4.3 g/dL Normal 3.2-5.0 [facility] Comment on above: Order Comment: Speci men Type: BLOOD SPECIMENOrdering Facility: [facility] Address: [address] [facility] [address] Performed By: #### 2 4325-3, 34679-1, HCG ####[facility] LABORATORYCLIA [id number] [address] [place] ALP [Catalytic activity/Vol] 93 U/L Normal 45-117 [facility] Comment on above: Order Comment: Speci men Type: BLOOD SPECIMENOrdering Facility: [facility] Address: [address] [place] [address] Performed By: #### 2 4325-3, 37393-0, HCG ####[facility] LABORATORYCLIA [id number] [address] STATES OF [facility] ALT [Catalytic activity/Vol] 21 U/L Normal 13-61 [facility] Comment on above: Order Comment: Speci men Type: BLOOD SPECIMENOrdering Facility: [facility] Address: [address] [place] [address] Result Comment: Resu lts may be falsely depressed after the administration of Sulfasalazine and/or Sulfapyridine. Performed By: #### 2 4325-3, 31627-7, HCG ####[facility] LABORATORYCLIA [id number] [address] [place] AST [Catalytic activity/Vol] 19 U/L Normal 8-34 [facility] Comment on above: Order Comment: Speci men Type: BLOOD SPECIMENOrdering Facility: [facility] Address: [address] [place] [address] Result Comment: Resu lts may be falsely depressed after the administration of Sulfasalazine and/or Sulfapyridine. Performed By: #### 2 4325-3, 47702-1, HCG ####[facility] LABORATORYCLIA [id number] [place] [address] [place] Bilirubin [Mass/Vol] 0.8 mg/dL Normal 0.2-1.0 [facility] Comment on above: Order Comment: Speci men Type: BLOOD SPECIMENOrdering Facility: [facility] Address: [address] [place] [address] Performed By: #### 2 4325-3, 77226-9, HCG ####[facility] LABORATORYCLIA [id number] [address] OF [facility] Bilirubin.conjugated [Mass/Vol] 0.2 mg/dL Normal 0.0-0.4 [facility] Comment on above: Order Comment: Speci men Type: BLOOD SPECIMENOrdering Facility: [facility] Address: [address] [address] Performed By: #### 2 4325-3, 54754-2, HCG ####[facility] LABORATORYCLIA [id number] [address] [address] [facility] Protein [Mass/Vol] 7.3 g/dL Normal 6.0-8.5 [facility] Comment on above: Order Comment: Speci men Type: BLOOD SPECIMENOrdering Facility: [facility] Address: [address] [address] Performed By: #### 2 4325-3, 29101-5, HCG ####[facility] LABORATORYCLIA [id number] [address] [address] [facility] OF [place] Lipase SerPl-cCncon 02-01-20 23 Lipase [Catalytic activity/Vol] 21 U/L Normal 12-60 [facility] Comment on above: Order Comment: Speci men Type: BLOOD SPECIMENOrdering Facility: [facility] Address: [address] [place] [address] Performed By: #### 3 040-3 ####[facility] LABORATORYCLIA [id number] [address] SEPSIS LACTATEon 01-31-2023 Lactate [Moles/Vol] 3.0 mmol/L High 0.4-2.0 [facility] Comment on above: Order Comment: Speci men Type: BLOOD SPECIMENOrdering Facility: [facility] Address: [address] [place] [address] Performed By: #### S LACT ####[facility] LABORATORYCLIA [id number] [address] OF [place] XR ACUTE ABD SERIES [...] bowel. Consider CT if concern remains high. Director Of Preclinical Research: PSCB Transcribe Date/Time: Jan 31 2023 7:56P Dictated by : SARAVANAN REESE MD This examination was interpreted and the report reviewed and electronically signed by: SARAVANAN REESE MD on Jan 31 2023 8:00PM EST [id number] Normal [facility] Bacteria Ur Culton 3 Bacteria identified Cx Nom (U) CULTURE, URINE: <10,000 CFU/ml Normal Urogenital Dorothy Normal [facility] Comment on above: Performed By: #### 6 30-4 ####[facility] LABORATORYCLIA [id number] [address] [place] CNNURSEon 01-25-2023 CNNURSE Nurse Visit (FAMPOR) KATHLEEN VILLA ([id number]) 1995 F T Date Time Provider Department [...] Other Visit Diagnosis:Dysuria [R30.0] Order(s):UA DIP B/O [[id number]] Order #: [id number] Prescriptions as of 01/25/2023 - prochlorperazine (COMPAZINE) [...] (BAQSIMI) 3 mg/actuation nasal spray Use 1 [place] in the nose as needed for low [...] Marfan syndrome [Q87.40] 12/25/2012 DM (diabetes mellitus) ([facility]) [E11.9] 12/25/2012 Gastroparesis due to DM (HCC) [...] 12/08/2022 Encoun (more content not included)... Normal [facility] HEMOGLOBIN A1C (POC)on 01-25 HbA1c (Bld) [Mass fraction] 7.6 % Abnormal 4.2 - 5.6 % [facility] Laboratory - Chemistry and C hemistry - challengeon 01-25-2023 Glucose Ql (U) Negative Neg mg/dL [facility] Ketones Ql (U) Negative Neg [facility] pH (U) 6.5 [pH] 4.5 - 8.0 [facility] Protein.monoclonal (U) [Mass/Vol] Negative Neg mg/dL [facility] Laboratory - Urinalysison Nitrite Ql (U) Negative Neg [facility] No Panel Informationon 01-25 Bilirubin, Urine Negative Neg [facility] Color/Appearance Yellow/clear [facility] Hemoglobin/Blood,Ur Negative Neg [facility] Leukocytes Negative Neg [facility] Specific [place], Ur 1.020 1.005 - 1.030 C [facility] Urobilinogen, Urine 0.2 EU Normal ( <1.1) EU [facility] CNPNon 01-24-2023 CNPN Telephone (FAMPOR) KATHLEEN VILLA ([id number]) 1995 F CHT Date Time Provider Department 01/24/23 VIVI SMITH During your visit today, we recorded the following information about you: Radha Mandel MA 01/24/2023 11:44 AM Signed Yaima from [facility] called and they need an [...] (BAQSIMI) 3 mg/actuation nasal spray Use 1 [place] in the nose as needed for low [...] VIVI SMITH on (more content not included)... [facility] CNPN Telephone (FAMPOR) KATHLEEN VILLA ([id number]) 1995 F CHT Date Time Provider Department 01/24/23 [facility] During your visit today, we recorded the [...] Diagnosis:Left flank pain [R10.9] Order(s):UA DIP B/O [[id number]] Order #: [id number] FUTURE URINE CULTURE [SQURCUL] Order #: [id number] Prescriptions as of 01/25/2023 - prochlorperazine (COMPAZINE) [...] (BAQSIMI) 3 mg/actuation nasal spray Use 1 [place] in the nose as needed for low [...] 04/16/2014 [Z34.90] 11/22/2013 04/16/2014 Diabetes mellitus in ([facility]) [O24.919] 12/25/2013 04/16/2014 DKA (diabetic ketoacidoses) [E11.10] [...] constipation [K59.04] 10/27 (more content not included)... [facility]ATH[facility]ILL[facility] ([id number]) 1995 F CHT Date Time Provider Department [...] (BAQSIMI) 3 mg/actuation nasal spray Use 1 [place] in the nose as needed for low [...] Status:Closed by YAIMA AGUILAR on 01/26/23 Normal [facility] Bacteria Ur Culton 3 Bacteria identified Cx Nom (U) CULTURE, URINE: 10,000-<50,000 CFU/mL Three or more organisms, no one type predominant, suggesting contamination during collection. Recollect if clinically indicated. Abnormal [facility] Comment on above: Performed By: #### 6 30-4 ####[facility] LABORATORYCLIA [id number] [address] OF [facility] CNOVon 01-20-2023 CNOV Office Visit (FAMPOR ) KATHLEEN VILLA ([id number]) 1995 F [facility] Date Time Provider Department 01/20/23 11:00 [...] 200s/. She sees Endo next week. 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 Normal [facility] C. trachomatis+N. gonorrhoea e DNA DANIEL+probe Ql (Unsp spec)on 01-12-2023 C. trachomatis DNA DANIEL+probe Ql (Unsp spec) Negative Normal Negative for Chlamydia trachomatis by amplificaton [facility] Comment on above: Order Comment: Speci men Type: SWAB [facility] Address: [address] [place] [id number] Performed By: #### 3 6902-5 #### [facility] CLIA [id number] [address] [place], [place] [address] [place] N. gonorrhoeae DNA DANIEL+probe Ql (Unsp spec) Negative Normal Negative for Neisseria gonorrhoeae by amplification [facility] Comment on above: Order Comment: Speci men Type: SWAB [facility] Address: [facility] [place] [address] Performed By: #### 3 6902-5 #### [facility] CLIA [id number] [facility] [place] [address] [facility] CNOVon 01-12-2023 CNOV Office Visit (OBGYMM ) KATHLEEN VILLA ([id number]) 1995 F CHT Date Time Provider Department [...] fevers GI: No nausea, vomiting, or diarrhea RESIDENTIAL FEE APPRAISER: Negative for abnormal vaginal bleeding, abnormal vaginal [...] [SQGCCAMP] Order (more content not included)... Normal [facility] HBV surface Ag Ser Qlon 12-26 HBV surface Ag Ql (S) Non-Reactive Normal Equivo cristina, Nonreactive [facility] Comment on above: Order Comment: Speci men Type: BLOOD SPECIMEN [facility] Address: [address] [place] [phone] Result Comment: Resu lts were obtained with the Group-IB IM IgM assay. Values obtained with different manufactures' assay methods may not be used interchangeably. Performed By: #### 3 1201-7, 5195-3, 53555-9, SYPH #### [facility] CLIA [id number] [address] [place] [address] [place] HCV Ab Ser Qlon 01-12-2023 HCV Ab Ql (S) Non-Reactive Normal Nonreactive [facility] Comment on above: Order Comment: Speci men Type: BLOOD SPECIMEN [facility] Address: [address] [place] [address] Result Comment: Scre ening test negative Nonreactive HCV Antibody Screen is consistent with no HCV infection, unless recent infection is suspected or other evidence exists to indicate HCV infection. Results were obtained with the [employer] IM IgM assay. Values obtained with different manufactures' assay methods may not be used interchangeably. Performed By: #### 3 1201-7, 5195-3, 41437-5, SYPH #### [facility] CLIA [id number] [address] [place] [address] [place] HIV 1+2 Ab IA Qlon HIV 1+2 Ab+HIV1 p24 Ag IA Ql Non-Reactive Normal Nonreactive [facility] Comment on above: Order Comment: Speci men Type: BLOOD SPECIMEN [facility] Address: [address] [place] [address] Result Comment: Nonr eactive: Less than 1.0 index value Specimens with an index value <1.0 are considered nonreactive for antibodies to HIV-1, HIV-2, and p24 antigen by the [employer] IM CHIV assay. Performed By: #### 3 1201-7, 5195-3, 66143-7, SYPH #### [facility] CLIA [id number] [address] [place] [address] OF [place] TREPONEMA PALLIDUM SCREENon 01-12-2023 T. pallidum IgG IF Ql (S) Non-Reactive Normal Nonreactive [facility] Comment on above: Order Comment: Speci men Type: BLOOD SPECIMEN [facility] Address: [address] [place] [address] Result Comment: Samp les with an index value of less than 0.90 are considered Nonreactive for Syphilis T. pallidum antibodies. Performed By: #### 3 1201-7, 5195-3, 17276-8, SYPH #### [facility] CLIA [id number] [address] [place], [place] [address] [facility] WET PREPon 01-12-2023 WET PREP WET PREP RESULT: No Trichomonads, No yeast observed Moderate Clue cells present Normal [facility] Comment on above: Performed By: #### L [id number] #### [facility] CLIA [id number] [address] [place], [place] [address] [facility] HEMOGLOBIN A1C (POC)on 08-16 HbA1c (Bld) [Mass fraction] 7.0 % Abnormal 4.2 - 5.6 % [facility] BMPon 02-01-2022 Anion gap [Moles/Vol] 7 mmol/L Normal 5-16 [facility] Comment on above: Order Comment: Campu s: M Performed By: #### L 500.50938, L500.67099, L500.79249 ####[facility] [id number] [place], [place] [address]By# [phone] BUN/CREA TNP Normal 15-24 [facility] Comment on above: Order Comment: Campu s: M Performed By: #### L 500.41449, L500.04069, L500.46302 ####[facility] [id number] [place], [place] [address]Xv# [phone] Calcium [Mass/Vol] 8.4 mg/dL Low 8.5-10.5 [facility] Comment on above: Order Comment: Campu s: M Result Comment: NOTE NEW NORMAL RANGE DUE TO REAGENT CHANGE Performed By: #### L 500.06621, L500.15558, L500.14155 ####[facility] [id number] [place], [place] [address]Yz# [phone] Chloride [Moles/Vol] 112 mmol/L High 98-107 [facility] Comment on above: Order Comment: Campu s: M Performed By: #### L 500.46952, L500.12073, L500.09059 ####[facility] [id number] [place], [place] [address]Lh# [phone] CO2 [Moles/Vol] 24.0 mmol/L Normal 21-32 [facility] Comment on above: Order Comment: Campu s: M Performed By: #### L 500.68198, L500.40340, L500.91809 ####[facility] [id number] [place], [place] [address]Ud# [phone] Creatinine [Mass/Vol] 0.64 mg/dL Normal 0.510-0.950 [facility] Comment on above: Order Comment: Campu s: M Result Comment: Cleopatra ents receiving either N-Acetylcysteine (NAC) orMetamizole prior to venipuncture, may have falsely depressedresults. Performed By: #### L 500.06528, L500.85414, L500.10933 ####[facility] [id number] [place], [place] [address]Pt# [phone] Glucose [Mass/Vol] 104 mg/dL High 70-100 [facility] Comment on above: Order Comment: Campu s: M Result Comment: 70-1 00- Normal Fasting; 100-125 Impaired Fasting; greaterthan 126 on more than one result- Diabetes. ADA guidelines.Results may be falsely elevated after the administration ofSulfapyridine.Results may be falsely depressed after the administration ofSulfasalazine. Performed By: #### L 500.76029, L500.62750, L500.38043 ####[facility] [id number] [place], [place] [address]Xj# [phone] Potassium [Moles/Vol] 3.7 mmol/L Normal 3.5-5.1 [facility] Comment on above: Order Comment: Campu s: M Result Comment: Slig ht Hemolysis, Result may be affected. Performed By: #### L 500.19396, L500.90837, L500.95276 ####[facility] [id number] [place], [place] [address]Pk# [phone] Sodium [Moles/Vol] 143 mmol/L Normal 136-145 [facility] Comment on above: Order Comment: Campu s: M Performed By: #### L 500.47559, L500.26770, L500.62902 ####[facility] [id number] [place] [address]Ab# [phone] Urea nitrogen [Mass/Vol] 5 mg/dL Low 7-26 [facility] Comment on above: Order Comment: Campu s: M Performed By: #### L 500.47923, L500.39941, L500.69444 ####[address] [address]Bi# [phone] CBC W/DIFFon 02-01-2022 BASO ABS 0.10 K/CU MM Normal 0-0.2 [facility] Comment on above: Order Comment: Campu s: M Performed By: #### L 200.01758 ####[address] [address]Tn# [phone] Basophils/100 WBC (Bld) 0.6 % Normal 0-2 [facility] Comment on above: Order Comment: Campu s: M Performed By: #### L 200.60243 ####[facility] [id number] [place] [address]Lz# [phone] EOS ABS 0.10 K/CU MM Normal 0-0.5 [facility] Comment on above: Order Comment: Campu s: M Performed By: #### L 200.10242 ####[facility] [id number] [place] [address]Bd# [phone] Eosinophils/100 WBC (Bld) 1.3 % Normal 0-5 [facility] Comment on above: Order Comment: Campu s: M Performed By: #### L 200.48662 ####[facility] [id number] [place] [address]Wf# [phone] Erythrocyte distribution width (RBC) [Ratio] 13.8 % Normal 11-14.5 [facility] Comment on above: Order Comment: Campu s: M Performed By: #### L 200.06201 ####[facility] [id number] [place] [address]Cn# [phone] Hematocrit (Bld) [Volume fraction] 36.9 % Normal 35.0-47.0 [facility] Comment on above: Order Comment: Campu s: M Performed By: #### L 200.41190 ####[facility] TYCIRLGAPG[address] [place], [place] [address]Ph# [phone] Hemoglobin (Bld) [Mass/Vol] 12.3 g/dL Normal 11.5-15.5 [facility] Comment on above: Order Comment: Campu s: M Performed By: #### L 200.34781 ####[facility] JWHTSUDIZH[address] [place], [place] [address]Ph# [phone] IMMATR GRAN ABS 0.20 K/CU MM Normal Less than 2 [facility] Comment on above: Order Comment: Campu s: M Performed By: #### L 200.79484 ####[facility] TDIFCGNDOF[address] [place] [address] 879[address]Ag# [phone] IMMATURE GRAN % 2.2 % Normal Less than 2 [facility] Comment on above: Order Comment: Campu s: M Performed By: #### L 200.48688 ####[facility] QESAJKORUK[address] [place], [place] [address]Ph# [phone] LYMPH ABS 3.70 K/CU MM Normal 0.9-4.4 [facility] Comment on above: Order Comment: Campu s: M Performed By: #### L 200.87883 ####[facility] EMJHFFZTRM[address] [place], [place] [address]Ph# [phone] Lymphocytes/100 WBC (Bld) 33.6 % Normal 20-40 [facility] Comment on above: Order Comment: Campu s: M Performed By: #### L 200.40526 ####[facility] JMKUTCMFNJ9096 [place], [place] [address]Lr# [phone] MCHC (RBC) [Mass/Vol] 33.3 g/dL Normal 32.0-36.0 [facility] Comment on above: Order Comment: Campu s: M Performed By: #### L 200.93948 ####[facility] VAYKPDUNIE[address] [place] [address] 47739Gv# [phone] MCV (RBC) [Entitic vol] 86.8 fL Normal 80.0-99.0 [facility] Comment on above: Order Comment: Campu s: M Performed By: #### L 200.89700 ####[address] [address]To# [phone] MONO ABS 0.80 K/CU MM Normal 0.1-1.1 [facility] Comment on above: Order Comment: Campu s: M Performed By: #### L 200.66845 ####[place] [address]49[address]Ph# [phone] Monocytes/100 WBC (Bld) 7.3 % Normal 2-10 [facility] Comment on above: Order Comment: Campu s: M Performed By: #### L 200.08025 ####[facility] XIDULGFNRI[address] [place] [address]Dd# [phone] NEUTROPHIL ABS 6.00 K/CU MM Normal 2.0-8.3 [facility] Comment on above: Order Comment: Campu s: M Performed By: #### L 200.79667 ####[facility] RGCTCPJRJZ[address] [place] [address] 277[address]Uj# [phone] Neutrophils/100 WBC (Bld) 55.0 % Normal 45-75 [facility] Comment on above: Order Comment: Campu s: M Performed By: #### L 200.58595 ####[facility] VPZCBORXMD[address] [place], [place] [address]Ph# [phone] Nucleated RBC/100 WBC (Bld) [Ratio] 0.0 % Normal Less than 1 [facility] Comment on above: Order Comment: Campu s: M Performed By: #### L 200.22314 ####[facility] LFFRXYNVPE3074 [place], [place] [address]Dy# [phone] Platelet mean volume (Bld) [Entitic vol] 11.3 fL Normal 9.4-12.4 [facility] Comment on above: Order Comment: Campu s: M Performed By: #### L 200.15358 ####[facility] EVPCJRYJBM3495 [place], [place] [address]Rg# [phone] PLT 173 K/CU MM Normal 150-450 [facility] Comment on above: Order Comment: Campu s: M Performed By: #### L 200.18048 ####[facility] Z[address]JNXBYHLE[address] [place] [address] 90[address]Tl# [phone] RBC 4.25 M/CU MM Normal 3.90-5.30 [facility] Comment on above: Order Comment: Campu s: M Performed By: #### L 200.23925 ####[facility] UTLJJETJKU4726 [place], [place] [address]Yw# [phone] WBC 10.9 K/CUMM Normal 4.5-11.0 [facility] Comment on above: Order Comment: Campu s: M Performed By: #### L 200.68381 ####[facility] UPNYBPUZYG[address] [place] [address] 107[address]Hv# [phone] DISCH.SUMon 02-01-2022 DISCH.SUM Normal [facility] GFR ESTon 02-01-2022 IF AMER Greater than 60 Normal [facility] Comment on above: Order Comment: Campu s: M Performed By: #### L 500.64953, L500.08631, L500.86157 ####[facility] ZHIMAVDPQE1276 [place], [place] [address]Dc# [phone] IF non-AFR AMER Greater than 60 Normal [facility] Comment on above: Order Comment: Campu s: M Performed By: #### L 500.28176, L500.61344, L500.75712 ####[facility] TEMAHIADUU5037 [place], [place] [address]Sy# [phone] GLUCOSE METERon 02-01-2022 Glucose [Mass/Vol] 291 mg/dL High 70-115 [facility] Glucose [Mass/Vol] 89 mg/dL Normal 70-115 [facility] MAGNESIUMon 02-01-2022 Magnesium [Mass/Vol] 2.0 mg/dL Normal 1.6-2.6 [facility] Comment on above: Order Comment: Campu s: M Performed By: #### L 500.18712, L500.52091, L500.31873 ####[facility] LRZTYQZITD1693 [place], [place] [address]Fe# [phone] BMPon 01-31-2022 Anion gap [Moles/Vol] 12 mmol/L Normal 5-16 [facility] Comment on above: Order Comment: Campu s: M Performed By: #### L 500.05195, L500.89561, L500.08662 ####[facility] JIYTHCPECL5909 [place], [place] [address]Ur# [phone] Calcium [Mass/Vol] 9.1 mg/dL Normal 8.5-10.5 [facility] Comment on above: Order Comment: Campu s: M Result Comment: NOTE NEW NORMAL RANGE DUE TO REAGENT CHANGE Performed By: #### L 500.94722, L500.22743, L500.90555 ####[facility] ADXTQEBNHS0980 [place], [place] [address]Pd# [phone] Chloride [Moles/Vol] 106 mmol/L Normal 98-107 [facility] Comment on above: Order Comment: Campu s: M Performed By: #### L 500.93009, L500.27235, L500.30199 ####[facility] FJQSWKQQKQ8724 [place], [place] [address]Ol# [phone] CO2 [Moles/Vol] 24.0 mmol/L Normal 21-32 [facility] Comment on above: Order Comment: Zach Ricks Performed By: #### L 500.10271, L500.86991, L500.82540 ####[facility] WAWEMNYTQK0299 [place], [place] [address]Cg# [phone] Creatinine [Mass/Vol] 0.61 mg/dL Normal 0.510-0.950 [facility] Comment on above: Order Comment: Zach s: M Result Comment: Cleopatra ents receiving either N-Acetylcysteine (NAC) orMetamizole prior to venipuncture, may have falsely depressedresults. Performed By: #### L 500.30059, L500.65751, L500.21973 ####[facility] XHYVNPBXCV8356 [place], [place] [address]Cn# [phone] Glucose [Mass/Vol] 167 mg/dL High 70-100 [facility] Comment on above: Order Comment: Zach s: Millicent Result Comment: Delt a check [id number]- Normal Fasting; 100-125 Impaired Fasting; greaterthan 126 on more than one result- Diabetes. ADA guidelines.Results may be falsely elevated after the administration ofSulfapyridine.Results may be falsely depressed after the administration ofSulfasalazine. Performed By: #### L 500.83363, L500.89986, L500.71126 ####[facility] QLTJNTZTUO4758 [place], [place] [address]Fj# [phone] Potassium [Moles/Vol] 3.7 mmol/L Normal 3.5-5.1 [facility] Comment on above: Order Comment: Zach richter: Millicent Result Comment: Slig ht Hemolysis, Result may be affected. Performed By: #### L 500.37164, L500.11235, L500.04778 ####[facility] CMLDCSNHPD2931 [place], [place] [address]Kq# [phone] Sodium [Moles/Vol] 142 mmol/L Normal 136-145 [facility] Comment on above: Order Comment: Campu s: M Performed By: #### L 500.90463, L500.32362, L500.74073 ####[facility] QKOXRBGMFH4128 [place], [place] [address]Tm# [phone] Urea nitrogen [Mass/Vol] 7 mg/dL Normal 7-26 [facility] Comment on above: Order Comment: Campu s: M Performed By: #### L 500.73765, L500.77134, L500.73436 ####[facility] SXGROXUEGA[address] [place] [address]Pj# [phone] Urea nitrogen/Creatinine [Mass ratio] 11 mg/mg Low 15-24 [facility] Comment on above: Order Comment: Campu s: M Performed By: #### L 500.09525, L500.47772, L500.36537 ####[place] [address]Ph# [phone] CBC W/DIFFon 01-31-2022 BASO ABS 0.10 K/CU MM Normal 0-0.2 [facility] Comment on above: Order Comment: Campu s: M Performed By: #### L 200.21573 ####[address] [address]Gm# [phone] Basophils/100 WBC (Bld) 0.5 % Normal 0-2 [facility] Comment on above: Order Comment: Campu s: M Performed By: #### L 200.92962 ####[facility] QKSFYEPFVI[address] [place] [address]Rh# [phone] EOS ABS 0.00 K/CU MM Normal 0-0.5 [facility] Comment on above: Order Comment: Campu s: M Performed By: #### L 200.69868 ####[facility] [id number] [place] [address]Nn# [phone] Eosinophils/100 WBC (Bld) 0.1 % Normal 0-5 [facility] Comment on above: Order Comment: Campu s: M Performed By: #### L 200.22535 ####[facility] LCSTJWGCRV8519 [place], [place] [address]Lm# [phone] Erythrocyte distribution width (RBC) [Ratio] 13.9 % Normal 11-14.5 [facility] Comment on above: Order Comment: Campu s: M Performed By: #### L 200.54530 ####[facility] OZTFGTATCY[address] [place], [place] [address]Ph# [phone] Hematocrit (Bld) [Volume fraction] 37.5 % Normal 35.0-47.0 [facility] Comment on above: Order Comment: Campu s: M Performed By: #### L 200.59585 ####[address] [address]Kt# [phone] Hemoglobin (Bld) [Mass/Vol] 12.3 g/dL Normal 11.5-15.5 [facility] Comment on above: Order Comment: Campu s: M Performed By: #### L 200.58824 ####[place] [address]Ph# [phone] IMMATR GRAN ABS 0.30 K/CU MM Normal Less than 2 [facility] Comment on above: Order Comment: Campu s: M Performed By: #### L 200.05318 ####[facility] IBZQLOJYQU[address]67[address] [place], [place] [address]Ph# [phone] IMMATURE GRAN % 1.9 % Normal Less than 2 [facility] Comment on above: Order Comment: Campu s: M Performed By: #### L 200.77826 ####[facility] HCVWBSVGNK9684[address] [place], [place] [address]Ph# [phone] LYMPH ABS 4.00 K/CU MM Normal 0.9-4.4 [facility] Comment on above: Order Comment: Campu s: M Performed By: #### L 200.37833 ####[facility] XXGLMNFVJA9489[address] [place], [place] [address]Ph# [phone] Lymphocytes/100 WBC (Bld) 24.8 % Normal 20-40 [facility] Comment on above: Order Comment: Campu s: M Performed By: #### L 200.13308 ####[facility] TCUIKGUIFF[address] [place] [address]Kj# [phone] MCHC (RBC) [Mass/Vol] 32.8 g/dL Normal 32.0-36.0 [facility] Comment on above: Order Comment: Campu s: M Performed By: #### L 200.75965 ####[place] [address]Ph# [phone] MCV (RBC) [Entitic vol] 87.6 fL Normal 80.0-99.0 [facility] Comment on above: Order Comment: Campu s: M Performed By: #### L 200.43656 ####[place] [address]Ph# [phone] MONO ABS 1.00 K/CU MM Normal 0.1-1.1 [facility] Comment on above: Order Comment: Campu s: M Performed By: #### L 200.29352 ####[address] [address]Lu# [phone] Monocytes/100 WBC (Bld) 6.2 % Normal 2-10 [facility] Comment on above: Order Comment: Campu s: M Performed By: #### L 200.49487 ####[facility] IRRHFHMPSY[address] [place] [address]Ll# [phone] NEUTROPHIL ABS 10.60 K/CU MM High 2.0-8.3 [facility] Comment on above: Order Comment: Campu s: M Performed By: #### L 200.51260 ####[facility] [id number] [place], [place] [address]Ph# [phone] Neutrophils/100 WBC (Bld) 66.5 % Normal 45-75 [facility] Comment on above: Order Comment: Campu s: M Performed By: #### L 200.25111 ####[facility] CGBDUWFMVR0416 [place], [place] [address]Ps# [phone] Nucleated RBC/100 WBC (Bld) [Ratio] 0.0 % Normal Less than 1 [facility] Comment on above: Order Comment: Campu s: M Performed By: #### L 200.44562 ####[facility] ADYGHQPYBO9962 [place], [place] [address]Rg# [phone] Platelet mean volume (Bld) [Entitic vol] 12.0 fL Normal 9.4-12.4 [facility] Comment on above: Order Comment: Campu s: M Performed By: #### L 200.12250 ####[facility] FIDAECHFDC7641 [place], [place] [address]Fn# [phone] PLT 183 K/CU MM Normal 150-450 [facility] Comment on above: Order Comment: Campu s: M Performed By: #### L 200.19633 ####[facility] GZZDDURLLM4396 [place], [place] [address]Ri# [phone] RBC 4.28 M/CU MM Normal 3.90-5.30 [facility] Comment on above: Order Comment: Campu s: M Performed By: #### L 200.16630 ####[facility] VXFBTIAQBU1136 [place], [place] [address]Hh# [phone] WBC 16.0 K/CUMM High 4.5-11.0 [facility] Comment on above: Order Comment: Campu s: M Performed By: #### L 200.94563 ####[facility] HY[address]ZSKREK[address] [place] [address]Dl# [phone] GFR ESTon 01-31-2022 IF AMER Greater than 60 Normal [facility] Comment on above: Order Comment: Campu s: M Performed By: #### L 500.22914, L500.36491, L500.87426 ####[facility] WMTUGCBQLH5519 [place], [place] [address]To# [phone] IF non-AFR AMER Greater than 60 Normal [facility] Comment on above: Order Comment: Campu s: M Performed By: #### L 500.16257, L500.92955, L500.12650 ####[facility] PVWRDMRFWW8181 [place], [place] [address]Gn# [phone] GLUCOSE METERon 01-31-2022 Glucose [Mass/Vol] 233 mg/dL High 70-115 [facility] Glucose [Mass/Vol] 216 mg/dL High 70-115 [facility] Glucose [Mass/Vol] 171 mg/dL High 70-115 [facility] Glucose [Mass/Vol] 230 mg/dL High 70-115 [facility] Glucose [Mass/Vol] 284 mg/dL High 70-115 [facility] MAGNESIUMon 01-31-2022 Magnesium [Mass/Vol] 1.8 mg/dL Normal 1.6-2.6 [facility] Comment on above: Order Comment: Campu s: M Performed By: #### L 500.56439, L500.87414, L500.42853 ####[facility] VDLNZUGVOM2042 [place], [place] [address]Pf# [phone] PROG IMSon 01-31-2022 PROG IMS Normal [facility] Progress Note-Hospitalist Normal [facility] BMPon 01-30-2022 Anion gap [Moles/Vol] 8 mmol/L Normal 5-16 [facility] Comment on above: Order Comment: Campu s: M Performed By: #### L 500.14186, L500.78614 ####[facility] EUUSDKHNHY7504 [place], [place] [address]Mt# [phone] Calcium [Mass/Vol] 8.7 mg/dL Normal 8.5-10.5 [facility] Comment on above: Order Comment: Campu s: M Result Comment: NOTE NEW NORMAL RANGE DUE TO REAGENT CHANGE Performed By: #### L 500.41300, L500.89257 ####[facility] AWFIFJMUFP6491 [place], [place] [address]Db# [phone] Chloride [Moles/Vol] 114 mmol/L High 98-107 [facility] Comment on above: Order Comment: Benjiu s: M Performed By: #### L 500.45745, L500.21810 ####[facility] CSFHCPZODV6440 [place], [place] [address]Ea# [phone] CO2 [Moles/Vol] 22.0 mmol/L Normal 21-32 [facility] Comment on above: Order Comment: Campu s: M Performed By: #### L 500.28721, L5.44913 ####[facility] WIZWQHCIZV9132 [place], [place] [address]Ju# [phone] Creatinine [Mass/Vol] 0.68 mg/dL Normal 0.510-0.950 [facility] Comment on above: Order Comment: Benjiu s: M Result Comment: Cleopatra ents receiving either N-Acetylcysteine (NAC) orMetamizole prior to venipuncture, may have falsely depressedresults. Performed By: #### L 500.23305, L5.73547 ####[facility] VJBPLIJVSL5339 [place], [place] [address]Qh# [phone] Glucose [Mass/Vol] 87 mg/dL Normal 70-100 [facility] Comment on above: Order Comment: Benjiu s: M Result Comment: 70-1 00- Normal Fasting; 100-125 Impaired Fasting; greaterthan 126 on more than one result- Diabetes. ADA guidelines.Results may be falsely elevated after the administration ofSulfapyridine.Results may be falsely depressed after the administration ofSulfasalazine. Performed By: #### L 500.93878, L500.89473 ####[facility] BANNLSXAHQ8002 [place], [place] [address]Zf# [phone] Potassium [Moles/Vol] 3.2 mmol/L Low 3.5-5.1 [facility] Comment on above: Order Comment: Benjiu s: M Result Comment: Slig ht Hemolysis, Result may be affected. Performed By: #### L 500.35686, L500.89825 ####[facility] AXMKUPDWDC0734 [place], [place] [address]Fe# [phone] Sodium [Moles/Vol] 144 mmol/L Normal 136-145 [facility] Comment on above: Order Comment: Campu s: M Performed By: #### L 500.21038, L500.07717 ####[facility] SISDUFBMXA2575 [place], [place] [address]Hz# [phone] Urea nitrogen [Mass/Vol] 14 mg/dL Normal 7-26 [facility] Comment on above: Order Comment: Campu s: M Performed By: #### L 500.75804, L500.96471 ####[facility] BEQBJJQEOQ7816 [place], [place] [address]Ai# [phone] Urea nitrogen/Creatinine [Mass ratio] 20 mg/mg Normal 15-24 [facility] Comment on above: Order Comment: Campu s: M Performed By: #### L 500.04882, L500.40250 ####[facility] NLTIYPSCLV6227 [place], [place] [address]Oj# [phone] Anion gap [Moles/Vol] 5 mmol/L Normal 5-16 [facility] Comment on above: Order Comment: Campu s: M Performed By: #### L 500.00813, L500.40244 ####[facility] HBDZPEQJBK3175 [place], [place] [address]Cx# [phone] Calcium [Mass/Vol] 9.0 mg/dL Normal 8.5-10.5 [facility] Comment on above: Order Comment: Campu s: M Result Comment: NOTE NEW NORMAL RANGE DUE TO REAGENT CHANGE Performed By: #### L 500.42923, L500.95682 ####[facility] IGMQJLYNTO8037 [place], [place] [address]Io# [phone] Chloride [Moles/Vol] 114 mmol/L High 98-107 [facility] Comment on above: Order Comment: Campu s: M Result Comment: Delt a check reviewed Performed By: #### L 500.69111, L500.04069 ####[facility] DQVIWUDBWV9747 [place], [place] [address]Zp# [phone] CO2 [Moles/Vol] 22.0 mmol/L Normal 21-32 [facility] Comment on above: Order Comment: Zach s: M Result Comment: Delt a check reviewed Performed By: #### L 500.39202, L500.01070 ####[facility] XLPHQNDHLQ3853 [place], [place] [address]Vv# [phone] Creatinine [Mass/Vol] 0.74 mg/dL Normal 0.510-0.950 [facility] Comment on above: Order Comment: Zach s: M Result Comment: Cleopatra ents receiving either N-Acetylcysteine (NAC) orMetamizole prior to venipuncture, may have falsely depressedresults. Performed By: #### L 500.35241, L500.72272 ####[facility] LNFSTOUOWX[address] [place] [address]Cg# [phone] Glucose [Mass/Vol] 95 mg/dL Normal 70-100 [facility] Comment on above: Order Comment: Zach s: M Result Comment: 70-1 00- Normal Fasting; 100-125 Impaired Fasting; greaterthan 126 on more than one result- Diabetes. ADA guidelines.Results may be falsely elevated after the administration ofSulfapyridine.Results may be falsely depressed after the administration ofSulfasalazine. Performed By: #### L 500.90244, L500.17659 ####[facility] OYYBPKGHFS9521 [place], [place] [address]Db# [phone] Potassium [Moles/Vol] 3.6 mmol/L Normal 3.5-5.1 [facility] Comment on above: Order Comment: Zach s: M Performed By: #### L 500.46872, L500.44721 ####[facility] YEIYPYJDOZ6553 [place], [place] [address]Zm# [phone] Sodium [Moles/Vol] 141 mmol/L Normal 136-145 [facility] Comment on above: Order Comment: Campu s: M Performed By: #### L 500.57219, L500.57928 ####[facility] ZOMUVEEITS[address] [place] [address]Ln# [phone] Urea nitrogen [Mass/Vol] 18 mg/dL Normal 7-26 [facility] Comment on above: Order Comment: Campu s: M Performed By: #### L 500.97629, L500.00815 ####[facility] FBEXXWRUAT3[address] [place] [address]Bi# [phone] Urea nitrogen/Creatinine [Mass ratio] 24 mg/mg Normal 15-24 [facility] Comment on above: Order Comment: Campu s: M Performed By: #### L 500.67332, L500.67960 ####[facility] [id number] [place], [place] [address]Ph# [phone] CBC W/DIFFon 01-30-2022 BASO ABS 0.00 K/CU MM Normal 0-0.2 [facility] Comment on above: Order Comment: Benjiu s: MRN/MD Draw Performed By: #### L 200.88023 ####[facility] [id number] [place] [address]Xm# [phone] Basophils/100 WBC (Bld) 0.2 % Normal 0-2 [facility] Comment on above: Order Comment: Benjiu s: MRN/MD Draw Performed By: #### L 200.93079 ####[facility] [id number] [place] [address]Ba# [phone] EOS ABS 0.00 K/CU MM Normal 0-0.5 [facility] Comment on above: Order Comment: Benjiu s: MRN/MD Draw Performed By: #### L 200.93308 ####[facility] [id number] [place] [address]Tm# [phone] Eosinophils/100 WBC (Bld) 0.0 % Normal 0-5 [facility]: Order Comment: Campu s: MRN/MD Draw Performed By: #### L 200.95789 ####[facility] [id number] [place], [place] [address]Cl# [phone] Erythrocyte distribution width (RBC) [Ratio] 14.3 % Normal 11-14.5 [facility] [place] Comment on above: Order Comment: Campu s: MRN/MD Draw Performed By: #### L 200.43572 ####[facility] [id number] [place], [place] [id number]# [phone] Hematocrit (Bld) [Volume fraction] 34.4 % Low 35.0-47.0 [facility] Comment [facility] above: Order Comment: Campu s: MRN/MD Draw Performed By: #### L 200.13143 ####[facility] [id number] [place] [id number]# [phone] Hemoglobin (Bld) [Mass/Vol] 11.3 g/dL Low 11.5-15.5 [facility] Comment on above: Order Comment: Campu s: MRN/MD Draw Performed By: #### L 200.27627 ####[facility] [id number] [place], [place] [id number]# [phone] IMMATR GRAN ABS 0.20 K/CU MM Normal Less than 2 [facility] Comment on above: Order Comment: Campu s: MRN/MD Draw Performed By: #### L 200.49372 ####[facility] [id number] [place], [place] [id number]# [phone] IMMATURE GRAN % 0.8 % Normal Less than 2 [facility] Comment on above: Order Comment: Campu s: MRN/MD Draw Performed By: #### L 200.40745 ####[facility] [id number] [place], [place] [address]Xg# [phone] LYMPH ABS 2.20 K/CU MM Normal 0.9-4.4 [facility] Comment on above: Order Comment: Campu s: MRN/MD Draw Performed By: #### L 200.93433 ####[facility] [id number] [place], [place] [address]Ma# [phone] Lymphocytes/100 WBC (Bld) 9.0 % Low 20-40 [facility] [place] Comment on above: Order Comment: Campu s: MRN/MD Draw Performed By: #### L 200.84739 ####[facility] [id number] [place], [place] [address]Ph# [phone] MCHC (RBC) [Mass/Vol] 32.8 g/dL Normal 32.0-36.0 [facility] [place] Comment on above: Order Comment: Campu s: MRN/MD Draw Performed By: #### L 200.15132 ####[facility] [id number] [place], [place] [address]Nu# [phone] MCV (RBC) [Entitic vol] 88.0 fL Normal 80.0-99.0 [facility] Comment on above: Order Comment: Campu s: MRN/MD Draw Performed By: #### L 200.94957 ####[facility] [id number] [place], [place] [address]Ph# [phone] MONO ABS 1.60 K/CU MM High 0.1-1.1 [facility] Comment on above: Order Comment: Campu s: MRN/MD Draw Performed By: #### L 200.02993 ####[facility] [id number] [place], [place] [address]Ph# [phone] Monocytes/100 WBC (Bld) 6.5 % Normal 2-10 [facility] Comment on above: Order Comment: Campu s: MRN/MD Draw Performed By: #### L 200.69170 ####[facility] [id number] [place] [address]Os# [phone] NEUTROPHIL ABS 20.60 K/CU MM High 2.0-8.3 [facility] Comment on above: Order Comment: Campu s: MRN/MD Draw Performed By: #### L 200.50751 ####[facility] [id number] [place], [place] [address]Ko# [phone] Neutrophils/100 WBC (Bld) 83.5 % High 45-75 [facility] Comment on above: Order Comment: Campu s: MRN/MD Draw Performed By: #### L 200.77720 ####[facility] [id number] [place], [place] [address]Go# [phone] Nucleated RBC/100 WBC (Bld) [Ratio] 0.0 % Normal Less than 1 [facility] Comment on above: Order Comment: Campu s: MRN/MD Draw Performed By: #### L 200.41896 ####[facility] PYOJTPRIWL5593 [place] [address]Ph# [phone] Platelet mean volume (Bld) [Entitic vol] 12.0 fL Normal 9.4-12.4 [facility] Comment on above: Order Comment: Campu s: MRN/MD Draw Performed By: #### L 200.01108 ####[facility] TANUCNTCEU7934 [place], [place] [address]Qg# [phone] PLT 198 K/CU MM Normal 150-450 [facility] Comment on above: Order Comment: Campu s: MRN/MD Draw Performed By: #### L 200.26239 ####[facility] HERAUVKILD2251 [place], [place] [address]Bl# [phone] RBC 3.91 M/CU MM Normal 3.90-5.30 [facility] Comment on above: Order Comment: Campu s: MRN/MD Draw Performed By: #### L 200.86683 ####[facility] HISXYLUTLJ2331 [place], [place] [address]Oz# [phone] WBC 24.7 K/CUMM High 4.5-11.0 [facility] Comment on above: Order Comment: Campu s: MRN/MD Draw Performed By: #### L 200.11374 ####[facility] [id number] [place], [place] [address]Ph# [phone] GFR ESTon 01-30-2022 IF AMER Greater than 60 Normal [facility] [place] Comment on above: Order Comment: Campu s: M Performed By: #### L 500.97067, L500.72355 ####[facility] [id number] [place], [place] [address]Rq# [phone] IF non-AFR AMER Greater than 60 Normal [facility] [place] Comment on above: Order Comment: Campu s: M Performed By: #### L 500.94366, L500.16216 ####[facility] FBMGJLBDRW5349 [place], [place] [address]Ue# [phone] IF AMER Greater than 60 Normal [facility] [place] Comment on above: Order Comment: Campu s: M Performed By: #### L 500.73522, L500.75816 ####[facility] [id number] [place] [address]Dn# [phone] IF non-AFR AMER Greater than 60 Normal [facility] [place] Comment on above: Order Comment: Campu s: M Performed By: #### L 500.82160, L500.76962 ####[facility] ZRDUPRKEWR2946 [place], [place] [address]Iq# [phone] GLUCOSE METERon 01-30-2022 Glucose [Mass/Vol] 214 mg/dL High 70-115 [facility] Glucose [Mass/Vol] 219 mg/dL High 70-115 [facility] Glucose [Mass/Vol] 114 mg/dL Normal 70-115 [facility] Glucose [Mass/Vol] 125 mg/dL High 70-115 [facility] Glucose [Mass/Vol] 120 mg/dL High 70-115 [facility] Glucose [Mass/Vol] 86 mg/dL Normal 70-115 [facility] Glucose [Mass/Vol] 134 mg/dL High 70-115 [facility] Glucose [Mass/Vol] 105 mg/dL Normal 70-115 [facility] Glucose [Mass/Vol] 94 mg/dL Normal 70-115 [facility] Glucose [Mass/Vol] 189 mg/dL High 70-115 [facility] Glucose [Mass/Vol] 122 mg/dL High 70-115 [facility] Glucose [Mass/Vol] 188 mg/dL High 70-115 [facility] Glucose [Mass/Vol] 206 mg/dL High 70-115 [facility] MAGNESIUMon 01-30-2022 Magnesium [Mass/Vol] 1.9 mg/dL Normal 1.6-2.6 [facility] Comment on above: Order Comment: Zach s: MRN/ Draw Performed By: #### L 500.06499, L500.09303 ####[facility] [id number] [place], [place] [address]Qb# [phone] PHOSon 01-30-2022 Phosphate [Mass/Vol] 2.20 mg/dL Low 2.5-4.9 [facility] Comment on above: Order Comment: Zach s: MRN/MD Draw Result Comment: Elev ated m-protein (paraprotein) levels in the serum may beexhibited in patients with monoclonal gammopathies, causingfalsely elevated inorganic phosphorus results. Performed By: #### L 500.30665, L500.23788 ####[facility] PZZFIVRJOC8675 [place], [place] [address]Rh# [phone] PROG IMSon 01-30-2022 PROG IMS Normal [facility] Progress Note-Hospitalist Normal [facility] PROG.INTENon 01-30-2022 PROG.INTEN Normal [facility] Progress Note-Practical Nurse Normal [facility] BETA-HYDRO BUTon 01-29-2022 BETA-HYDRO BUT 3.92 MMOL/L High 0.02-0.27 [facility] Comment on above: Order Comment: Zach richter: Millicent Result Comment: Rudolph ortiz ketone levels will vary depending on several factors(for example, food intake, alcohol intake and conditionssuch as ketoacidosis). Patients should be fasting 12 hoursprior to collection.PATIENT SAMPLES WITH HIGH LEVELS OF M-PROTEIN (I.E.GAMMOPATHY) MAY AFFECT THE ACCURACY OF THIS ASSAY. Performed By: #### L 500.90682 ####[facility] [id number] [place], [place] [address]Sw# [phone] BMPon 01-29-2022 Anion gap [Moles/Vol] 18 mmol/L High 5-16 [facility] Comment on above: Order Comment: Campu s: M Performed By: #### L 500.94630, L500.77626, L500.75214, L500.98474, L500.82308 ####[facility] USMIGWSKGL4213 [place], [place] [address]Lu# [phone] Calcium [Mass/Vol] 9.9 mg/dL Normal 8.5-10.5 [facility] Comment on above: Order Comment: Campu s: M Result Comment: NOTE NEW NORMAL RANGE DUE TO REAGENT CHANGE Performed By: #### L 500.11050, L500.59750, L500.97726, L500.86018, L500.27848 ####[facility] IRIKFOOZVG6182 [place], [place] [address]Ys# [phone] Chloride [Moles/Vol] 103 mmol/L Normal 98-107 [facility] Comment on above: Order Comment: Campu s: M Performed By: #### L 500.08708, L500.22713, L500.63106, L500.15918, L500.59092 ####[facility] FMAUYRIJLJ0457 [place], [place] [address]Jw# [phone] CO2 [Moles/Vol] 15.0 mmol/L Low 21-32 [facility] Comment on above: Order Comment: Campu s: M Performed By: #### L 500.23907, L500.18828, L500.11946, L500.81532, L500.98033 ####[facility] URYHUNISLO8554 [place], [place] [address]Ly# [phone] Creatinine [Mass/Vol] 0.71 mg/dL Normal 0.510-0.950 [facility] [place] Comment on above: Order Comment: Campu s: M Result Comment: Cleopatra ents receiving either N-Acetylcysteine (NAC) orMetamizole prior to venipuncture, may have falsely depressedresults. Performed By: #### L 500.98450, L500.24296, L500.29484, L500.57543, L500.96777 ####[facility] GCUNZQZTNI9489 [place], [place] [address]Hk# [phone] Glucose [Mass/Vol] 412 mg/dL High 70-100 [facility] Comment on above: Order Comment: Campu s: M Result Comment: 70-1 00- Normal Fasting; 100-125 Impaired Fasting; greaterthan 126 on more than one result- Diabetes. ADA guidelines.Results may be falsely elevated after the administration ofSulfapyridine.Results may be falsely depressed after the administration ofSulfasalazine. Performed By: #### L 500.51387, L500.90744, L500.92909, L500.40452, L500.39058 ####[facility] STYDDYVKKM3654 [place], [place] [address]Wx# [phone] Potassium [Moles/Vol] 4.2 mmol/L Normal 3.5-5.1 [facility] Comment on above: Order Comment: Campu s: M Performed By: #### L 500.91425, L500.98632, L500.59107, L500.45451, L500.93526 ####[facility] VFVLYLHPMG7379 [place], [place] [address]Xq# [phone] Sodium [Moles/Vol] 136 mmol/L Normal 136-145 [facility] Comment on above: Order Comment: Campu s: M Performed By: #### L 500.34404, L500.76750, L500.73215, L500.93630, L500.48584 ####[facility] PKEVCBOHQR8454 [place], [place] [address]Gx# [phone] Urea nitrogen [Mass/Vol] 23 mg/dL Normal 7-26 [facility] Comment on above: Order Comment: Campu s: M Performed By: #### L 500.02714, L500.17725, L500.68591, L500.95257, L500.58199 ####[facility] GSCNCQBHEL6879 [place], [place] [address]Kt# [phone] Urea nitrogen/Creatinine [Mass ratio] 32 mg/mg High 15-24 [facility] Comment on above: Order Comment: Campu s: M Performed By: #### L 500.08855, L500.21034, L500.05952, L500.40825, L500.94169 ####[facility] [id number] [place] [address]Ph# [phone] CBC W/DIFFon 01-29-2022 BASO ABS 0.00 K/CU MM Normal 0-0.2 [facility] Comment on above: Order Comment: Campu s: M Performed By: #### L 200.19417 ####[facility] IPQNIOUWIK[address] [place], [place] [address]Ph# [phone] Basophils/100 WBC (Bld) 0.1 % Normal 0-2 [facility] Comment on above: Order Comment: Campu s: M Performed By: #### L 200.06451 ####[facility] [id number] [place] [address]Cd# [phone] EOS ABS 0.00 K/CU MM Normal 0-0.5 [facility] Comment on above: Order Comment: Campu s: M Performed By: #### L 200.39192 ####[facility] [id number] [place] [address]Da# [phone] Eosinophils/100 WBC (Bld) 0.1 % Normal 0-5 [facility] Comment on above: Order Comment: Campu s: M Performed By: #### L 200.10524 ####[facility] [id number] [place], [place] [address]Ph# [phone] Erythrocyte distribution width (RBC) [Ratio] 13.6 % Normal 11-14.5 [facility] Comment on above: Order Comment: Campu s: M Performed By: #### L 200.91052 ####[facility] [id number] [place] [address]Nq# [phone] Hematocrit (Bld) [Volume fraction] 38.7 % Normal 35.0-47.0 [facility] Comment [facility] above: Order Comment: Campu s: M Performed By: #### L 200.19496 ####[facility] [id number] [place], [place] [address]Ph# [phone] Hemoglobin (Bld) [Mass/Vol] 12.6 g/dL Normal 11.5-15.5 [facility] Comment on above: Order Comment: Campu s: M Performed By: #### L 200.94562 ####[address] [address]Vp# [phone] IMMATR GRAN ABS 0.10 K/CU MM Normal Less than 2 [facility] Comment on above: Order Comment: Campu s: M Performed By: #### L 200.36124 ####[facility] [id number] [place], [place] [address]Ph# [phone] IMMATURE GRAN % 0.8 % Normal Less than 2 [facility] Comment on above: Order Comment: Campu s: M Performed By: #### L 200.64724 ####[facility] [id number] [place], [place] [address]Ph# [phone] LYMPH ABS 0.80 K/CU MM Low 0.9-4.4 [facility] Comment on above: Order Comment: Campu s: M Performed By: #### L 200.09386 ####[facility] UQCTVHSHKF[address] [place], [place] [address]Ph# [phone] Lymphocytes/100 WBC (Bld) 4.4 % Low 20-40 [facility] Comment on above: Order Comment: Campu s: M Performed By: #### L 200.04960 ####[facility] HTFNCSAKJD0366 [place] [address]Ph# [phone] MCHC (RBC) [Mass/Vol] 32.6 g/dL Normal 32.0-36.0 [facility] Comment on above: Order Comment: Campu s: M Performed By: #### L 200.71394 ####[facility] [id number] [place] [address]Rq# [phone] MCV (RBC) [Entitic vol] 86.4 fL Normal 80.0-99.0 [facility] Comment on above: Order Comment: Campu s: M Performed By: #### L 200.11980 ####[place] [address]Ph# [phone] MONO ABS 0.30 K/CU MM Normal 0.1-1.1 [facility] Comment on above: Order Comment: Campu s: M Performed By: #### L 200.83786 ####[facility] [id number] [place], [place] [address]Ph# [phone] Monocytes/100 WBC (Bld) 1.7 % Low 2-10 [facility] Comment on above: Order Comment: Campu s: M Performed By: #### L 200.49569 ####[facility] [id number] [place], [place] [address]Ph# [phone] NC/NC NORMOCYTIC Normal [facility] Comment on above: Order Comment: Campu s: M Performed By: #### L 200.70094 ####[facility] [id number] [place], [place] [address]Ph# [phone] NEUTROPHIL ABS 17.00 K/CU MM High 2.0-8.3 [facility] Comment on above: Order Comment: Campu s: M Performed By: #### L 200.60761 ####[facility] ELPOPCHGSO[address] [place], [place] [address]Ph# [phone] Neutrophils/100 WBC (Bld) 92.9 % High 45-75 [facility] Comment on above: Order Comment: Campu s: M Performed By: #### L 200.03030 ####[facility] WFIEKQGARC5410 [place], [place] [address]Ob# [phone] Nucleated RBC/100 WBC (Bld) [Ratio] 0.0 % Normal Less than 1 [facility] Comment on above: Order Comment: Campu s: M Performed By: #### L 200.14421 ####[facility] [id number] [place] [address]Cq# [phone] Platelet mean volume (Bld) [Entitic vol] 13.5 fL High 9.4-12.4 [facility] Comment on above: Order Comment: Campu s: M Performed By: #### L 200.61741 ####[facility] TYTUBWURPA1764 [place], [place] [address]Yb# [phone] PLT 174 K/CU MM Normal 150-450 [facility] Comment on above: Order Comment: Campu s: M Performed By: #### L 200.45168 ####[facility] [id number] [place] [address]Cw# [phone] PLT EST ADEQUATE Normal [facility] Comment on above: Order Comment: Campu s: M Performed By: #### L 200.76114 ####[facility] LMIFJVEXTU3109 [place], [place] [address]Cd# [phone] RBC 4.48 M/CU MM Normal 3.90-5.30 [facility] Comment on above: Order Comment: Campu s: M Performed By: #### L 200.93238 ####[facility] ZHFIKJTBKF3106 [place], [place] [address]Sn# [phone] WBC 18.3 K/CUMM High 4.5-11.0 [facility] Comment on above: Order Comment: Campu s: M Performed By: #### L 200.93617 ####[facility] [address]HLMZWCK[address] [place] [address]Xn# [phone] CONS.INTENon 01-29-2022 CONS.INTEN Normal [facility] Consultation-Intensivi st Normal [facility] Stacie 01-29-2022 EMERGENCY PHYSICIAN REPORT This is a preliminary report only, as the practitioner review and authentication has not occurred. Normal [facility] ER Normal [facility] GFR ESTon 01-29-2022 IF AMER Greater than 60 [facility] Comment on above: Order Comment: Campu s: M Performed By: #### L 500.71113, L500.36116, L500.63017, L500.60258, L500.64986 ####[facility] [id number] [place], [place] [address]Ch# [phone] IF non-AFR AMER Greater than 60 [facility] Comment on above: Order Comment: Campu s: M Performed By: #### L 500.37377, L500.22699, L500.03678, L500.22061, L500.09204 ####[facility] RFHOQHEBZB6183 [place], [place] [address]Le# [phone] GLUCOSE METERon 01-29-2022 Glucose [Mass/Vol] 135 mg/dL High 70-115 [facility] Glucose [Mass/Vol] 146 mg/dL High 70-115 [facility] Glucose [Mass/Vol] 141 mg/dL High 70-115 [facility] Glucose [Mass/Vol] 117 mg/dL High 70-115 [facility] Glucose [Mass/Vol] 151 mg/dL High 70-115 [facility] Glucose [Mass/Vol] 221 mg/dL High 70-115 [facility] Glucose [Mass/Vol] 286 mg/dL High 70-115 [facility] Glucose [Mass/Vol] 382 mg/dL High 70-115 [facility] Glucose [Mass/Vol] 402 mg/dL High 70-115 [facility] HCGon 01-29-2022 HCG SER RESULT Negative Normal NEGATIVE [facility] Comment on above: Order Comment: Campu s: M Performed By: #### L 500.25330, L500.92040, L500.31816, L500.69559, L500.72201 ####[facility] KASUXOSHGU3618 [place], [place] [address]Qa# [phone] HP.IMS.ADMon 01-29-2022 Admission-H&P Normal [facility] HP.IMS.ADM Normal [facility] LIPASEon 01-29-2022 Lipase [Catalytic activity/Vol] 22 U/L Normal 12-60 [facility] Comment on above: Order Comment: Campu s: M Result Comment: NOTE NEW NORMAL RANGE DUE TO REAGENT CHANGE Performed By: #### L 500.83507, L500.79580, L500.16451, L500.03876, L500.31265 ####[facility] VEYRTKRITJ2814 [place], [place] [address]Qc# [phone] LIVERon 01-29-2022 Albumin [Mass/Vol] 4.5 g/dL Normal 3.2-5.0 [facility] Comment on above: Order Comment: Campu s: M Performed By: #### L 500.68021, L500.36058, L500.37257, L500.61734, L500.73884 ####[facility] JCUTJQYLQC9280 [place], [place] [address]Nr# [phone] Albumin/Globulin [Mass ratio] 1.7 {ratio} Normal 0.8-2.0 [facility] Comment on above: Order Comment: Campu s: M Performed By: #### L 500.64619, L500.97781, L500.21903, L500.36640, L500.99579 ####[facility] ZKWBCOPYTH9894 [place], [place] [address]Pt# [phone] ALK PHOS 104 U/L Normal 45-117 [facility] Comment on above: Order Comment: Campu s: M Performed By: #### L 500.75782, L500.30492, L500.70567, L500.26876, L500.80137 ####[facility] [id number] [place], [place] [address]Yi# [phone] ALT [Catalytic activity/Vol] 28 U/L Normal 13-61 [facility] Comment on above: Order Comment: Zach s: M Result Comment: RESU LTS MAY BE FALSELY DEPRESSED AFTER THE ADMINISTRATION OFSULFASALAZINE AND/OR SULFAPYRIDINE. Performed By: #### L 500.71795, L500.23349, L500.73900, L500.40400, L500.02768 ####[facility] CWZDMDQPCX2136 [place], [place] [address]Kg# [phone] AST [Catalytic activity/Vol] 24 U/L Normal 8-34 [facility] Comment on above: Order Comment: Zach s: M Result Comment: RESU LTS MAY BE FALSELY DEPRESSED AFTER THE ADMINISTRATION OFSULFASALAZINE AND/OR SULFAPYRIDINE. Performed By: #### L 500.11424, L500.95100, L500.68509, L500.82809, L500.64812 ####[facility] HEHHZHRZPT5120 [place], [place] [address]Zm# [phone] BILI DIRECT 0.3 MG/DL Normal 0.00-0.36 [facility] Comment on above: Order Comment: Zach s: Millicent Result Comment: NOTE NEW NORMAL RANGE DUE TO REAGENT CHANGE Performed By: #### L 500.25851, L500.33291, L500.19225, L500.40658, L500.61886 ####[facility] AVCGTYFWXJ7010 [place], [place] [address]Ao# [phone] BILI TOTAL 0.90 MG/DL Normal 0.2-1.0 [facility] Comment on above: Order Comment: Zach richter: Millicent Performed By: #### L 500.18082, L500.47264, L500.20187, L500.82922, L500.39623 ####[facility] LOSYZQQEAC8974 [place], [place] [address]Kr# [phone] Globulin (S) [Mass/Vol] 2.7 g/dL Normal 2.2-4.2 [facility] Comment on above: Order Comment: Campu s: M Performed By: #### L 500.52754, L500.98072, L500.62173, L500.31443, L500.79515 ####[facility] NPMKHUNTBU0266 [place], [place] [address]Ed# [phone] Protein [Mass/Vol] 7.2 g/dL Normal 6.0-8.5 [facility] Comment on above: Order Comment: Campu s: M Performed By: #### L 500.99897, L500.79661, L500.72826, L500.94957, L500.67361 ####[facility] [id number] [place], [place] [address]Qk# [phone] MRSA PCRon 01-29-2022 MRSA PCR Negative Normal NEGATIVE [facility] Comment on above: Order Comment: Zach s: M Result Comment: PLEA SE NOTE: TESTING DONE BY PCR TECHNOLOGY.The SA Nasal complete MRSA assay on the [employer] GeneXperthas not been validated for use on patients under 21 years ofage. All patients under 21 years of age, run on theGlobecon Group HoldingsXpert will be confirmed by a Blood [place] plate, followedby an SHINE, to confirm MRSA. Performed By: #### L 770.41745 ####[facility] [id number] [place], [place] [address]Co# [phone] SA PCR Positive High NEGATIVE [facility] Comment on above: Order Comment: Zach s: M Result Comment: PLEA SE NOTE: TESTING DONE BY PCR TECHNOLOGY. Performed By: #### L 770.58623 ####[facility] [id number] [place] [address]Ob# [phone] PORTABLE CHESTon 01-29-2022 PORTABLE CHEST Normal [facility] [id number] 01-29-2022 SARS-CoV-2 (COVID-19) RNA DANIEL+probe Ql (Unsp spec) Negative Invalid Interpretation Code Negative [facility] Comment on above: Order Comment: Zach [...] performed by PCR. Performed By: #### L [id number] ####[facility] [id number] [place], [place] [address]Az# [phone] UA COMPLETEon 01-29-2022 Color (U) [facility] Comment on above: Order Comment: Campu s: M Performed By: #### L [id number] ####[address] [address]Hx# [phone] Glucose (U) [Mass/Vol] 500 mg/dL Normal NORMAL [facility] Comment on above: Order Comment: Campu s: M Performed By: #### L 600.83011 ####[facility] [id number] [place] [address]Ll# [phone] UA APPEARANCE Clear Normal CLEAR [facility] Comment on above: Order Comment: Campu s: M Performed By: #### L 600.58974 ####[facility] [id number] [place] [address]Ql# [phone] UA BILIRUBIN Negative Normal NEGATIVE [facility] Comment on above: Order Comment: Campu s: M Performed By: #### L 600.23301 ####[facility] [id number] [place] [address]Hs# [phone] UA BLOOD Negative Normal NEGATIVE [facility] Comment on above: Order Comment: Campu s: M Performed By: #### L 600.08223 ####[facility] [id number] [place] [address]Ml# [phone] UA KETONE 80 Normal [facility] Comment on above: Order Comment: Campu s: M Performed By: #### L 600.41461 ####[facility] [id number] [place], [place] [address]Sx# [phone] UA LK ESTERASE Negative Normal NEGATIVE [facility] Comment on above: Order Comment: Campu s: M Performed By: #### L 600.85343 ####[facility] CMSEVGMTVO5241 [place], [place] [address]Vl# [phone] UA NITRITE Negative Normal NEGATIVE [facility] Comment on above: Order Comment: Campu s: M Performed By: #### L 600.35967 ####[facility] [id number] [place] [address]Ll# [phone] UA PH 6.0 Normal 5-6 [facility] Comment on above: Order Comment: Campu s: M Performed By: #### L 600.64187 ####[facility] [id number] [place] [address] 68[address]Np# [phone] UA PROTEIN Negative Normal NEGATIVE [facility] Comment on above: Order Comment: Campu s: M Performed By: #### L 600.48451 ####[facility] [id number] [place] [address]Rt# [phone] UA SPEC GRAV 1.028 Normal 1.005-1.030 [facility] Comment on above: Order Comment: Campu s: M Performed By: #### L 600.72729 ####[facility] [id number] [place] [address] 7[address]Bc# [phone] UA UROBILINOGEN Negative Normal NORMAL [facility] Comment on above: Order Comment: Campu s: M Performed By: #### L 600.42745 ####[facility] [id number] [place] [address] 95[address]Qz# [phone] VBG PHon 01-29-2022 VBG PH 7.36 MMHG Normal 7.31-7.41 [facility] Comment on above: Order Comment: Campu s: M Performed By: #### L 100.07299 ####[facility] [id number] [place] [address]Zh# [phone] BMPon 12-30-2021 Anion gap [Moles/Vol] 4 mmol/L Low 5-16 [facility] Comment on above: Order Comment: Campu s: M Performed By: #### L 500.43353, L500.61026 ####[facility] ZZNLMPKODC1936 [place], [place] [address]Gd# [phone] Calcium [Mass/Vol] 8.8 mg/dL Normal 8.5-10.5 [facility] Comment on above: Order Comment: Campu s: M Result Comment: NOTE NEW NORMAL RANGE DUE TO REAGENT CHANGE Performed By: #### L 500.03226, L500.07597 ####[facility] QZRVJDDWIQ7417 [place], [place] [address]Ca# [phone] Chloride [Moles/Vol] 109 mmol/L High 98-107 [facility] Comment on above: Order Comment: Campu s: M Performed By: #### L 500.27250, L500.84039 ####[facility] [id number] [place] [address]Rb# [phone] CO2 [Moles/Vol] 28.0 mmol/L Normal 21-32 [facility] Comment on above: Order Comment: Campu s: M Performed By: #### L 500.29410, L500.46223 ####[facility] FXRDCANJXE6062 [place], [place] [address]Sw# [phone] Creatinine [Mass/Vol] 0.64 mg/dL Normal 0.510-0.950 [facility] Comment on above: Order Comment: Campu s: M Result Comment: Cleopatra ents receiving either N-Acetylcysteine (NAC) orMetamizole prior to venipuncture, may have falsely depressedresults. Performed By: #### L 500.19965, L500.30381 ####[facility] IYHMPPYHQH6380 [place], [place] [address]Gr# [phone] Glucose [Mass/Vol] 160 mg/dL High 70-100 [facility] Comment on above: Order Comment: Campu s: M Result Comment: Delt a check [id number]- Normal Fasting; 100-125 Impaired Fasting; greaterthan 126 on more than one result- Diabetes. ADA guidelines.Results may be falsely elevated after the administration ofSulfapyridine.Results may be falsely depressed after the administration ofSulfasalazine. Performed By: #### L 500.86672, L500.68598 ####[facility] AVJYGEDWUG2248 [place], [place] [address]Kq# [phone] Potassium [Moles/Vol] 3.8 mmol/L Normal 3.5-5.1 [facility] Comment on above: Order Comment: Campu s: M Performed By: #### L 500.92935, L500.24764 ####[facility] [id number] [place] [address]Jp# [phone] Sodium [Moles/Vol] 141 mmol/L Normal 136-145 [facility] Comment on above: Order Comment: Campu s: M Performed By: #### L 500.95521, L500.64111 ####[facility] [id number] [place] [address]Sj# [phone] Urea nitrogen [Mass/Vol] 9 mg/dL Normal 7-26 [facility] Comment on above: Order Comment: Campu s: M Performed By: #### L 500.54611, L500.53827 ####[facility] [id number] [place] [address]Fi# [phone] Urea nitrogen/Creatinine [Mass ratio] 14 mg/mg Low 15-24 [facility] Comment on above: Order Comment: Campu s: M Performed By: #### L 500.80580, L500.54930 ####[facility] [id number] [place] [address]Jd# [phone] DISCH.SUMon 12-30-2021 DISCH.SUM Normal [facility] GFR ESTon 12-30-2021 IF AMER Greater than 60 Normal [facility] Comment on above: Order Comment: Campu s: M Performed By: #### L 500.12903, L500.55096 ####[facility] IVXARHDZPD8124 [place], [place] [address]Ni# [phone] IF non-AFR AMER Greater than 60 Normal [facility] Comment on above: Order Comment: Campu s: M Performed By: #### L 500.58405, L500.84588 ####[facility] SNOZPYEQCF2789 [place], [place] [address]Bd# [phone] GLUCOSE METERon 12-30-2021 Glucose [Mass/Vol] 141 mg/dL High 70-115 [facility] Glucose [Mass/Vol] 184 mg/dL High 70-115 [facility] Glucose [Mass/Vol] 269 mg/dL High 70-115 [facility] HGB A1C GLYCOHBon 12-30-2021 HbA1c (Bld) [Mass fraction] 6.2 % High 4.3-6.0 [facility] Comment on above: Order Comment: Campu s: M Performed By: #### L 550.72457 ####[facility] YSLYHAHTQX3614 [place], [place] [address]Dc# [phone] BMPon 12-29-2021 Anion gap [Moles/Vol] 7 mmol/L Normal 5-16 [facility] Comment on above: Order Comment: Campu s: M Performed By: #### L 500.53877, L500.51429 ####[facility] ZRIBZVFHHM1096 [place], [place] [address]Sd# [phone] Calcium [Mass/Vol] 7.1 mg/dL Low 8.5-10.5 [facility] Comment on above: Order Comment: Campu s: M Result Comment: NOTE NEW NORMAL RANGE DUE TO REAGENT CHANGE Performed By: #### L 500.54216, L500.82938 ####[facility] XGFLWILICZ1273 [place], [place] [address]Gf# [phone] Chloride [Moles/Vol] 114 mmol/L High 98-107 [facility] Comment on above: Order Comment: Campu s: M Performed By: #### L 500.62903, L500.66799 ####[facility] LIFMNYWSYH8351 [place], [place] [address]Au# [phone] CO2 [Moles/Vol] 22.0 mmol/L Normal 21-32 [facility] Comment on above: Order Comment: Benjiu s: M Performed By: #### L 500.22641, L500.64755 ####[facility] UAMHWTIWGO8210 [place], [place] [address]Pi# [phone] Creatinine [Mass/Vol] 0.52 mg/dL Normal 0.510-0.950 [facility] Comment on above: Order Comment: Benjiu s: M Result Comment: Cleopatra ents receiving either N-Acetylcysteine (NAC) orMetamizole prior to venipuncture, may have falsely depressedresults. Performed By: #### L 500.67472, L5.84823 ####[facility] THOPTKPXZQ4288 [place], [place] [address]Me# [phone] Glucose [Mass/Vol] 94 mg/dL Normal 70-100 [facility] Comment on above: Order Comment: Benjiu s: M Result Comment: 70-1 00- Normal Fasting; 100-125 Impaired Fasting; greaterthan 126 on more than one result- Diabetes. ADA guidelines.Results may be falsely elevated after the administration ofSulfapyridine.Results may be falsely depressed after the administration ofSulfasalazine. Performed By: #### L 500.33843, L500.75752 ####[facility] POKMAVSAOT9879 [place], [place] [address]Qe# [phone] Potassium [Moles/Vol] 3.2 mmol/L Low 3.5-5.1 [facility] Comment on above: Order Comment: Benjiu s: M Result Comment: Slig ht Hemolysis, Result may be affected. Performed By: #### L 500.73457, L500.47945 ####[facility] PRTKDYGMOX0202 [place], [place] [address]Me# [phone] Sodium [Moles/Vol] 143 mmol/L Normal 136-145 [facility] Comment on above: Order Comment: Campu s: M Result Comment: Delt a check reviewed Performed By: #### L 500.52801, L500.00107 ####[facility] [id number] [place] [address]Mu# [phone] Urea nitrogen [Mass/Vol] 6 mg/dL Low 7-26 [facility] Comment on above: Order Comment: Campu s: M Performed By: #### L 500.87999, L500.26657 ####[facility] ZEQFOICDGS[address] [place] [address]Jb# [phone] Urea nitrogen/Creatinine [Mass ratio] 11 mg/mg Low 15-24 [facility] Comment on above: Order Comment: Campu s: M Performed By: #### L 500.59546, L500.03290 ####[address] [address]Rn# [phone] CBC W/DIFFon 12-29-2021 BASO ABS 0.00 K/CU MM Normal 0-0.2 [facility] Comment on above: Order Comment: Campu s: M Performed By: #### L 200.40078 ####[facility] [id number] [place] [address]Hp# [phone] Basophils/100 WBC (Bld) 0.3 % Normal 0-2 [facility] Comment on above: Order Comment: Campu s: M Performed By: #### L 200.63751 ####[facility] [id number] [place] [address]Oc# [phone] EOS ABS 0.00 K/CU MM Normal 0-0.5 [facility] Comment on above: Order Comment: Campu s: M Performed By: #### L 200.20556 ####[facility] [id number] [place] [address] 19[address]Yq# [phone] Eosinophils/100 WBC (Bld) 0.2 % Normal 0-5 [facility] Comment on above: Order Comment: Campu s: M Performed By: #### L 200.02545 ####[facility] IPUOWOEIZZ8683 [place], [place] [address]Bd# [phone] Erythrocyte distribution width (RBC) [Ratio] 13.5 % Normal 11-14.5 [facility] Comment on above: Order Comment: Campu s: M Performed By: #### L 200.92479 ####[facility] URUTHZKROB[address] [place], [place] [address]Ph# [phone] Hematocrit (Bld) [Volume fraction] 34.3 % Low 35.0-47.0 [facility] Comment on above: Order Comment: Campu s: M Performed By: #### L 200.02168 ####[address] [address]Dz# [phone] Hemoglobin (Bld) [Mass/Vol] 11.5 g/dL Normal 11.5-15.5 [facility] Comment on above: Order Comment: Campu s: M Performed By: #### L 200.63209 ####[place] [address]Ph# [phone] IMMATR GRAN ABS 0.20 K/CU MM Normal Less than 2 [facility] Comment on above: Order Comment: Campu s: M Performed By: #### L 200.17265 ####[facility] K[address]FRHKY[address] [place], [place] [address]Ph# [phone] IMMATURE GRAN % 1.8 % Normal Less than 2 [facility] Comment on above: Order Comment: Campu s: M Performed By: #### L 200.18146 ####[facility] [id number] [place] [address]Uw# [phone] LYMPH ABS 3.60 K/CU MM Normal 0.9-4.4 [facility] Comment on above: Order Comment: Campu s: M Performed By: #### L 200.43949 ####[facility] WMVVKLFXOR7[address] [place], [place] [address]Ph# [phone] Lymphocytes/100 WBC (Bld) 29.4 % Normal 20-40 [facility] Comment on above: Order Comment: Campu s: M Performed By: #### L 200.30155 ####[facility] IQPLUWBPJH2293 [place], [place] [address]Pr# [phone] MCHC (RBC) [Mass/Vol] 33.5 g/dL Normal 32.0-36.0 [facility] Comment on above: Order Comment: Campu s: M Performed By: #### L 200.82457 ####[facility] [id number] [place] [address]Pw# [phone] MCV (RBC) [Entitic vol] 86.2 fL Normal 80.0-99.0 [facility] Comment on above: Order Comment: Campu s: M Performed By: #### L 200.33644 ####[address] [address]Zb# [phone] MONO ABS 0.80 K/CU MM Normal 0.1-1.1 [facility] Comment on above: Order Comment: Campu s: M Performed By: #### L 200.45355 ####[facility] [id number] [place] [address]Wv# [phone] Monocytes/100 WBC (Bld) 6.7 % Normal 2-10 [facility] Comment on above: Order Comment: Campu s: M Performed By: #### L 200.39750 ####[facility] [id number] [place] [address]Aa# [phone] NEUTROPHIL ABS 7.60 K/CU MM Normal 2.0-8.3 [facility] Comment on above: Order Comment: Campu s: M Performed By: #### L 200.35336 ####[facility] AGENCSINPX[address] [place] [address] 22[address]En# [phone] Neutrophils/100 WBC (Bld) 61.6 % Normal 45-75 [facility] Comment on above: Order Comment: Campu s: M Performed By: #### L 200.83435 ####[facility] BEZCMNAPPQ6313 [place], [place] [address]Ll# [phone] Nucleated RBC/100 WBC (Bld) [Ratio] 0.0 % Normal Less than 1 [facility] Comment on above: Order Comment: Campu s: M Performed By: #### L 200.76493 ####[facility] EEVYSABWKL0618 [place], [place] [address]Qy# [phone] Platelet mean volume (Bld) [Entitic vol] 11.7 fL Normal 9.4-12.4 [facility] Comment on above: Order Comment: Campu s: M Performed By: #### L 200.48303 ####[facility] YMODZEUCMM1350 [place], [place] [address]Kp# [phone] PLT 167 K/CU MM Normal 150-450 [facility] Comment on above: Order Comment: Campu s: M Performed By: #### L 200.52421 ####[facility] HHQJZLSTNC3420 [place], [place] [address]Xk# [phone] RBC 3.98 M/CU MM Normal 3.90-5.30 [facility] Comment on above: Order Comment: Campu s: M Performed By: #### L 200.52964 ####[facility] SLIAQFQRFD7248 [place], [place] [address]Cp# [phone] WBC 12.4 K/CUMM High 4.5-11.0 [facility] Comment on above: Order Comment: Campu s: M Performed By: #### L 200.44229 ####[facility] COVMACEWAN[address] [place] [address]Ez# [phone] GFR ESTon 12-29-2021 IF AMER Greater than 60 Normal [facility] Comment on above: Order Comment: Campu s: M Performed By: #### L 500.22879, L500.98928 ####[facility] HOKCERJRQG3329 [place] [address]Ph# [phone] IF non-AFR AMER Greater than 60 Normal [facility] Comment on above: Order Comment: Zach s: M Performed By: #### L 500.97777, L500.93072 ####[facility] HMEUXZGEAW1859 [place], [place] [address]Gg# [phone] GLUCOSE METERon 12-29-2021 Glucose [Mass/Vol] 266 mg/dL High 70-115 [facility] Glucose [Mass/Vol] 109 mg/dL Normal 70-115 [facility] Glucose [Mass/Vol] 67 mg/dL Low 70-115 [facility] Glucose [Mass/Vol] 49 mg/dL Critically low 70-115 [facility] Glucose [Mass/Vol] 63 mg/dL Low 70-115 [facility] Glucose [Mass/Vol] 98 mg/dL Normal 70-115 [facility] PROG IMSon 12-29-2021 PROG IMS Normal [facility] Progress Note-Hospitalist Normal [facility] ADM.INTERVon 12-28-2021 ADM.INTERV Normal [facility] Admission Interval Note Normal [facility] BETA-HYDRO BUTon 12-28-2021 BETA-HYDRO BUT 4.79 MMOL/L High 0.02-0.27 [facility] Comment on above: Order Comment: Zach s: M Result Comment: Bloo d ketone levels will vary depending on several factors(for example, food intake, alcohol intake and conditionssuch as ketoacidosis). Patients should be fasting 12 hoursprior to collection.PATIENT SAMPLES WITH HIGH LEVELS OF M-PROTEIN (I.E.GAMMOPATHY) MAY AFFECT THE ACCURACY OF THIS ASSAY. Performed By: #### L 500.81049, L500.23669, L500.61524 ####[facility] QWGYDHZQEX2054 [place], [place] [address]Jm# [phone] BMPon 12-28-2021 Anion gap [Moles/Vol] 13 mmol/L Normal 5-16 [facility] Comment on above: Order Comment: Zach s: M Performed By: #### L 500.89155, L500.20740, L500.18799 ####[facility] RYNHOHVIBG2368 [place], [place] [address]Xg# [phone] Calcium [Mass/Vol] 8.9 mg/dL Normal 8.5-10.5 [facility] Comment on above: Order Comment: Campu s: M Result Comment: NOTE NEW NORMAL RANGE DUE TO REAGENT CHANGE Performed By: #### L 500.29131, L500.81902, L500.08748 ####[facility] VORDKPMDTJ1129 [place], [place] [address]Nt# [phone] Chloride [Moles/Vol] 105 mmol/L Normal 98-107 [facility] Comment on above: Order Comment: Campu s: M Performed By: #### L 500.36276, L500.71573, L500.78193 ####[facility] WYDQTFWXFW8691 [place], [place] [address]Zi# [phone] CO2 [Moles/Vol] 18.0 mmol/L Low 21-32 [facility] Comment on above: Order Comment: Campu s: M Performed By: #### L 500.71488, L500.18531, L500.85326 ####[facility] GHGFJWSRMP5458 [place], [place] [address]Fw# [phone] Creatinine [Mass/Vol] 0.61 mg/dL Normal 0.510-0.950 [facility] Comment on above: Order Comment: Campu s: M Result Comment: Clepoatra ents receiving either N-Acetylcysteine (NAC) orMetamizole prior to venipuncture, may have falsely depressedresults. Performed By: #### L 500.25580, L500.40916, L500.08536 ####[facility] ZMKMGXDHKD7461 [place], [place] [address]Xj# [phone] Glucose [Mass/Vol] 80 mg/dL Normal 70-100 [facility] Comment on above: Order Comment: Campu s: M Result Comment: 70-1 00- Normal Fasting; 100-125 Impaired Fasting; greaterthan 126 on more than one result- Diabetes. ADA guidelines.Results may be falsely elevated after the administration ofSulfapyridine.Results may be falsely depressed after the administration ofSulfasalazine. Performed By: #### L 500.96529, L500.65164, L500.40718 ####[facility] KAQNQYYPJA6410 [place], [place] [address]Tz# [phone] Potassium [Moles/Vol] 2.9 mmol/L Critically low 3.5-5.1 [facility] Comment on above: Order Comment: Campu s: M Result Comment: Slig ht Hemolysis, Result may be affected.Critical Result(s)Called at: 19:38:48 on 12/28/2021 by lls. Called to vinh back by: DR MORLEY Performed By: #### L 500.36399, L500.56593, L500.67696 ####[facility] [id number] [place], [place] [address]Ns# [phone] Sodium [Moles/Vol] 136 mmol/L Normal 136-145 [facility] Comment on above: Order Comment: Campu s: M Performed By: #### L 500.80907, L500.85556, L500.38945 ####[facility] [id number] [place], [place] [address]Ye# [phone] Urea nitrogen [Mass/Vol] 11 mg/dL Normal 7-26 [facility] Comment on above: Order Comment: Campu s: M Performed By: #### L 500.96461, L500.91219, L500.08254 ####[facility] MIDLSFVNJH1426 [place], [place] [address]Wm# [phone] Urea nitrogen/Creatinine [Mass ratio] 18 mg/mg Normal 15-24 [facility] Comment on above: Order Comment: Campu s: M Performed By: #### L 500.00316, L500.51190, L500.74230 ####[facility] KUENNNVAJE1709 [place], [place] [address]Mw# [phone] Stacie 12-28-2021 EMERGENCY PHYSICIAN REPORT This is a preliminary report only, as the practitioner review and authentication has not occurred. Normal [facility] ER Normal [facility] GFR ESTon 12-28-2021 IF AMER Greater than 60 [facility] Comment on above: Order Comment: Campu s: M Performed By: #### L 500.46259, L500.36301, L500.54646 ####[facility] HCATUYZMPJ6071 [place], [place] [address]Qi# [phone] IF non-AFR AMER Greater than 60 [facility] Comment on above: Order Comment: Campu s: M Performed By: #### L 500.89471, L500.53039, L500.79970 ####[facility] SNLQBERUTA0334 [place], [place] [address]Ys# [phone] VBG PANELon 12-28-2021 BASE EXCESS -4.6 MMOL/L Low 0-2 [facility] Comment on above: Order Comment: Campu s: M Performed By: #### L 100.01697 ####[facility] REOLDDKIIM1674 [place], [place] [address]Ex# [phone] Body temperature 98.6 [degF] [facility] Comment on above: Order Comment: Campu s: M Performed By: #### L 100.44470 ####[facility] WGZWGKQJPT5452 [place], [place] [address]Lx# [phone] EQUIPMENT UNKNOWN Normal [facility] Comment on above: Order Comment: Campu s: M Performed By: #### L 100.57052 ####[facility] TLUWYGMFZQ2902 [place], [place] [address]Ui# [phone] HCO3 (Bld) [Moles/Vol] 17.6 mmol/L Low 22-26 [facility] Comment on above: Order Comment: Campu s: M Performed By: #### L 100.77791 ####[facility] KZWKVJUDPR4489 [place], [place] [address]Wk# [phone] Hemoglobin (Bld) [Mass/Vol] 13.9 g/dL Low 16.0-22.0 [facility] Comment on above: Order Comment: Benjiu s: M Performed By: #### L 100.45986 ####[facility] ELJLRKXHKZ7502 [place], [place] [address]Ei# [phone] SAMPLE SITE UNKNOWN Normal [facility] Comment on above: Order Comment: Benjiu s: M Performed By: #### L 100.98279 ####[facility] [id number] [place] [address]Pu# [phone] SAMPLE TYPE VENOUS Normal [facility] Comment on above: Order Comment: Benjiu s: M Performed By: #### L 100.00494 ####[facility] [id number] [place] [address]Oy# [phone] VBG CARBOXYHGB 1.5 % Normal 0-10 [facility] Comment on above: Order Comment: Benjiu s: M Performed By: #### L 100.79728 ####[facility] METCRXXBOR8859 [place], [place] [address]Ba# [phone] VBG METHGB 0.3 % Low 0.4-1.5 [facility] Comment on above: Order Comment: Benjiu s: M Performed By: #### L 100.54986 ####[facility] [id number] [place] [address]Ea# [phone] VBG O2 CAPACITY 19.0 VOL% Normal [facility] Comment on above: Order Comment: Benjiu s: M Performed By: #### L 100.12838 ####[facility] [id number] [place], [place] [address]Es# [phone] VBG O2 HG SATUR 88.4 % High 40-70 [facility] Comment on above: Order Comment: Benjiu s: M Performed By: #### L 100.17469 ####[facility] [id number] [place] [address]Yd# [phone] VBG PCO2 25.6 MMHG Critically low 40-50 [facility] Comment on above: Order Comment: Campu s: M Result Comment: VALU E IS OUTSIDE OF THE VERIFIED RANGES OF THIS ANALYZER.ADAM CHOE Elver. PCO2 25.6 MMHG Performed By: #### L 100.24045 ####[facility] [id number] [place], [place] [address]Fn# [phone] VBG PH 7.46 MMHG High 7.31-7.41 [facility] Comment on above: Order Comment: Campu s: M Performed By: #### L 100.01866 ####[facility] [id number] [place], [place] [address]Mi# [phone] VBG PO2 54.3 MMHG High 35-45 [facility] Comment on above: Order Comment: Campu s: M Performed By: #### L 100.57812 ####[facility] [id number] [place], [place] [address]Uk# [phone] BETA-HYDRO BUTon 12-27-2021 BETA-HYDRO BUT 3.29 MMOL/L High 0.02-0.27 [facility] Comment on above: Order Comment: Campu s: M Result Comment: Bloo d ketone levels will vary depending on several factors(for example, food intake, alcohol intake and conditionssuch as ketoacidosis). Patients should be fasting 12 hoursprior to collection.PATIENT SAMPLES WITH HIGH LEVELS OF M-PROTEIN (I.E.GAMMOPATHY) MAY AFFECT THE ACCURACY OF THIS ASSAY. Performed By: #### L 500.43881 ####[facility] [id number] [place], [place] [address]Et# [phone] BMPon 12-27-2021 Anion gap [Moles/Vol] 15 mmol/L Normal 5-16 [facility] Comment on above: Order Comment: Campu s: M Performed By: #### L 500.77113, L500.88218, L500.30675 ####[facility] [id number] [place], [place] [address]Np# [phone] Calcium [Mass/Vol] 9.2 mg/dL Normal 8.5-10.5 [facility] Comment on above: Order Comment: Campu s: M Result Comment: NOTE NEW NORMAL RANGE DUE TO REAGENT CHANGE Performed By: #### L 500.59592, L500.76100, L500.27281 ####[facility] [id number] [place], [place] [address]Np# [phone] Chloride [Moles/Vol] 107 mmol/L Normal 98-107 [facility] Comment on above: Order Comment: Campu s: M Performed By: #### L 500.71425, L500.99369, L500.88985 ####[facility] [id number] [place], [place] [address]Jr# [phone] CO2 [Moles/Vol] 18.0 mmol/L Low 21-32 [facility] Comment on above: Order Comment: Campu s: M Performed By: #### L 500.29636, L500.64129, L500.71129 ####[facility] TUWPMDRWNA8322 [place], [place] [address]Fw# [phone] Creatinine [Mass/Vol] 0.67 mg/dL Normal 0.510-0.950 [facility] [place] Comment on above: Order Comment: Campu s: M Result Comment: Cleopatra ents receiving either N-Acetylcysteine (NAC) orMetamizole prior to venipuncture, may have falsely depressedresults. Performed By: #### L 500.62464, L500.29605, L500.39923 ####[facility] EVXHIQUMTS7117 [place], [place] [address]Yf# [phone] Glucose [Mass/Vol] 118 mg/dL High 70-100 [facility] Comment on above: Order Comment: Campu s: M Result Comment: 70-1 00- Normal Fasting; 100-125 Impaired Fasting; greaterthan 126 on more than one result- Diabetes. ADA guidelines.Results may be falsely elevated after the administration ofSulfapyridine.Results may be falsely depressed after the administration ofSulfasalazine. Performed By: #### L 500.29776, L500.61989, L500.91362 ####[facility] FEDEPLDXJX8287 [place], [place] [address]Mf# [phone] Potassium [Moles/Vol] 3.3 mmol/L Low 3.5-5.1 [facility] [place] Comment on above: Order Comment: Campu s: M Performed By: #### L 500.28479, L500.51955, L500.46335 ####[facility] GFSUCQNOSG6529 [place], [place] [address]Es# [phone] Sodium [Moles/Vol] 140 mmol/L Normal 136-145 [facility] Comment on above: Order Comment: Campu s: M Performed By: #### L 500.71166, L500.64128, L500.28922 ####[facility] [id number] [place], [place] [address]Do# [phone] Urea nitrogen [Mass/Vol] 14 mg/dL Normal 7-26 [facility] Comment on above: Order Comment: Campu s: M Performed By: #### L 500.51280, L500.54433, L500.17228 ####[facility] NAFGVAECNV1680 [place], [place] [address]Oj# [phone] Urea nitrogen/Creatinine [Mass ratio] 21 mg/mg Normal 15-24 [facility] Comment on above: Order Comment: Campu s: M Performed By: #### L 500.29633, L500.36322, L500.68941 ####[facility] PQTERDQTQN8840 [place], [place] [address]Im# [phone] CBC W/DIFFon 12-27-2021 BASO ABS 0.00 K/CU MM Normal 0-0.2 [facility] Comment on above: Order Comment: Campu s: M Performed By: #### L 200.70322 ####[facility] OITLXGTIFE2115 [place], [place] [address]Ct# [phone] Basophils/100 WBC (Bld) 0.3 % Normal 0-2 [facility] [place] Comment on above: Order Comment: Campu s: M Performed By: #### L 200.76274 ####[facility] UWCUOVKVNT2329 [place], [place] [address]Cx# [phone] EOS ABS 0.00 K/CU MM Normal 0-0.5 [facility] Comment on above: Order Comment: Campu s: M Performed By: #### L 200.55453 ####[facility] IUEATGKWVL[address] [place], [place] [address]Ph# [phone] Eosinophils/100 WBC (Bld) 0.0 % Normal 0-5 [facility] Comment on above: Order Comment: Campu s: M Performed By: #### L 200.47375 ####[place] [address]Ph# [phone] Erythrocyte distribution width (RBC) [Ratio] 13.8 % Normal 11-14.5 [facility] Comment on above: Order Comment: Campu s: M Performed By: #### L 200.19417 ####[facility] [id number] [place], [place] [address]Ph# [phone] Hematocrit (Bld) [Volume fraction] 36.4 % Normal 35.0-47.0 [facility] Comment on above: Order Comment: Campu s: M Performed By: #### L 200.62109 ####[facility] LWMPSESVOV[address] [place], [place] [address]Ph# [phone] Hemoglobin (Bld) [Mass/Vol] 12.1 g/dL Normal 11.5-15.5 [facility] Comment on above: Order Comment: Campu s: M Performed By: #### L 200.78562 ####[facility] HJVFOWCLWB1581 [place], [place] [address]Mv# [phone] IMMATR GRAN ABS 0.30 K/CU MM Normal Less than 2 [facility] Comment on above: Order Comment: Campu s: M Performed By: #### L 200.50863 ####[place] [address] [place], [place] [address]Yg# [phone] IMMATURE GRAN % 1.8 % Normal Less than 2 [facility] Comment on above: Order Comment: Campu s: M Performed By: #### L 200.85564 ####[facility] [id number] [place] [address]Za# [phone] LYMPH ABS 1.30 K/CU MM Normal 0.9-4.4 [facility] Comment on above: Order Comment: Campu s: M Performed By: #### L 200.66574 ####[place] [address]Ph# [phone] Lymphocytes/100 WBC (Bld) 9.4 % Low 20-40 [facility] Comment on above: Order Comment: Campu s: M Performed By: #### L 200.23943 ####[place] [address]Ph# [phone] MCHC (RBC) [Mass/Vol] 33.2 g/dL Normal 32.0-36.0 [facility] Comment on above: Order Comment: Campu s: M Performed By: #### L 200.25351 ####[facility] DAXLJUIYJD[address] [place] [address]Ji# [phone] MCV (RBC) [Entitic vol] 85.4 fL Normal 80.0-99.0 [facility] Comment on above: Order Comment: Campu s: M Performed By: #### L 200.44646 ####[facility] [id number] [place] [address]Eo# [phone] MONO ABS 0.60 K/CU MM Normal 0.1-1.1 [facility] Comment on above: Order Comment: Campu s: M Performed By: #### L 200.38629 ####[facility] [id number] [place] [address]Sf# [phone] Monocytes/100 WBC (Bld) 4.1 % Normal 2-10 [facility] Comment on above: Order Comment: Campu s: M Performed By: #### L 200.26468 ####[facility] AMNGPKPGIW4120 [place], [place] [address]Wq# [phone] NEUTROPHIL ABS 11.70 K/CU MM High 2.0-8.3 [facility] Comment on above: Order Comment: Campu s: M Performed By: #### L 200.56922 ####[facility] [id number] [place] [address]Zn# [phone] Neutrophils/100 WBC (Bld) 84.4 % High 45-75 [facility] Comment on above: Order Comment: Campu s: M Performed By: #### L 200.23602 ####[facility] UEJFAPTWIZ4817 [place], [place] [address]Hw# [phone] Nucleated RBC/100 WBC (Bld) [Ratio] 0.0 % Normal Less than 1 [facility] Comment on above: Order Comment: Campu s: M Performed By: #### L 200.01574 ####[facility] OOBXBPDLQH4562 [place], [place] [address]Vv# [phone] Platelet mean volume (Bld) [Entitic vol] 12.1 fL Normal 9.4-12.4 [facility] Comment on above: Order Comment: Campu s: M Performed By: #### L 200.36103 ####[facility] [id number] [place] [address]Px# [phone] PLT 184 K/CU MM Normal 150-450 [facility] Comment on above: Order Comment: Campu s: M Performed By: #### L 200.81835 ####[facility] KFCLZIYQUX7058 [place], [place] [address]If# [phone] RBC 4.26 M/CU MM Normal 3.90-5.30 [facility] Comment on above: Order Comment: Campu s: M Performed By: #### L 200.62649 ####[facility] EXBPSJITDC0988 [place], [place] [address]Fx# [phone] WBC 13.9 K/CUMM High 4.5-11.0 [facility] Comment on above: Order Comment: Campu s: M Performed By: #### L 200.97406 ####[facility] WHAJKLGRXG7313 [place], [place] [address]Iw# [phone] Stacie 12-27-2021 EMERGENCY PHYSICIAN REPORT This is a preliminary report only, as the practitioner review and authentication has not occurred. Normal [facility] ER Normal [facility] GFR ESTon 12-27-2021 IF AMER Greater than 60 Normal [facility] Comment on above: Order Comment: Campu s: M Performed By: #### L 500.22517, L500.38851, L500.78292 ####[facility] VWOMTIVACR8419 [place], [place] [address]Lj# [phone] IF non-AFR AMER Greater than 60 Normal [facility] Comment on above: Order Comment: Campu s: M Performed By: #### L 500.50274, L500.24499, L500.21430 ####[facility] YXZBTDCDMO6317 [place], [place] [address]Oi# [phone] HCGon 12-27-2021 HCG SER RESULT Negative Normal NEGATIVE [facility] Comment on above: Order Comment: Campu s: M Performed By: #### L 500.53770, L500.08927, L500.34449 ####[facility] BSZYVEEKWH1498 [place], [place] [address]Go# [phone] LACTATE BLOODon 12-27-2021 LACTATE BLOOD 2.43 MMOL/L High 0.40-2.00 [facility] Comment on above: Order Comment: Campu s: M Performed By: #### L 550.32650 ####[facility] OMFTQRFVSF4865 [place], [place] [address]Ef# [phone] LIPASEon 12-27-2021 Lipase [Catalytic activity/Vol] 25 U/L Normal 12-60 [facility] Comment on above: Order Comment: Campu s: M Result Comment: NOTE NEW NORMAL RANGE DUE TO REAGENT CHANGE Performed By: #### L 500.49702, L500.12517 ####[facility] LQHUDGFAOP2860 [place], [place] [address]Al# [phone] LIVERon 12-27-2021 Albumin [Mass/Vol] 4.2 g/dL Normal 3.2-5.0 [facility] Comment on above: Order Comment: Campu s: M Performed By: #### L 500.75227, L500.94080 ####[facility] EFCPRKJRND5611 [place], [place] [address]Aa# [phone] Albumin/Globulin [Mass ratio] 1.7 {ratio} Normal 0.8-2.0 [facility] Comment on above: Order Comment: Campu s: M Performed By: #### L 500.19334, L500.63788 ####[facility] DHKKRNOULA2334 [place], [place] [address]Rd# [phone] ALK PHOS 87 U/L Normal 45-117 [facility] Comment on above: Order Comment: Campu s: M Performed By: #### L 500.68866, L500.66880 ####[facility] RXIJTYCZMP8255 [place], [place] [address]Dh# [phone] ALT [Catalytic activity/Vol] 13 U/L Normal 13-61 [facility] Comment on above: Order Comment: Campu s: M Result Comment: RESU LTS MAY BE FALSELY DEPRESSED AFTER THE ADMINISTRATION OFSULFASALAZINE AND/OR SULFAPYRIDINE. Performed By: #### L 500.89868, L500.18796 ####[facility] VGQOCMHSHX4378 [place], [place] [address]Nf# [phone] AST [Catalytic activity/Vol] 23 U/L Normal 8-34 [facility] Comment on above: Order Comment: Campu s: M Result Comment: RESU LTS MAY BE FALSELY DEPRESSED AFTER THE ADMINISTRATION OFSULFASALAZINE AND/OR SULFAPYRIDINE. Performed By: #### L 500.01694, L500.45613 ####[facility] OOMGZFERTX8102 [place], [place] [address]Xz# [phone] BILI DIRECT 0.3 MG/DL Normal 0.00-0.36 [facility] Comment on above: Order Comment: Campu s: M Result Comment: NOTE NEW NORMAL RANGE DUE TO REAGENT CHANGE Performed By: #### L 500.45529, L500.18792 ####[address] [address]Qz# [phone] BILI TOTAL 0.90 MG/DL Normal 0.2-1.0 [facility] Comment on above: Order Comment: Campu s: M Performed By: #### L 500.73294, L500.21440 ####[address] [address]Ct# [phone] Globulin (S) [Mass/Vol] 2.5 g/dL Normal 2.2-4.2 [facility] Comment on above: Order Comment: Campu s: M Performed By: #### L 500.43406, L500.98634 ####[address] [address]Cy# [phone] Protein [Mass/Vol] 6.7 g/dL Normal 6.0-8.5 [facility] Comment on above: Order Comment: Campu s: M Performed By: #### L 500.90284, L500.46716 ####[address] [address]As# [phone] [id number] 12-27-2021 SARS-CoV-2 (COVID-19) RNA DANIEL+probe Ql (Unsp spec) Negative Invalid Interpretation Code Negative [facility] Comment on above: Order Comment: Campu [...] performed by PCR. Performed By: #### L 770.68816 ####[facility] NAZYSXDTYD6836 [place], [place] [address]Rh# [phone] UA COMPLETEon 12-27-2021 Color (U) Yellow Normal [facility] Comment on above: Order Comment: Campu s: M Performed By: #### L 600.26946 ####[facility] BDVKNMGIDV[address] [place] [address]Ek# [phone] Glucose (U) [Mass/Vol] Negative Normal NORMAL Me [facility] Comment on above: Order Comment: Campu s: M Performed By: #### L 600.78716 ####[facility] [id number] [place] [address]Yw# [phone] UA APPEARANCE Clear Normal CLEAR [facility] Comment on above: Order Comment: Campu s: M Performed By: #### L 600.28494 ####[facility] [id number] [place] [address]Yn# [phone] UA BILIRUBIN Negative Normal NEGATIVE [facility] Comment on above: Order Comment: Campu s: M Performed By: #### L 600.83708 ####[facility] [id number] [place] [address]Hg# [phone] UA BLOOD Negative Normal NEGATIVE [facility] Comment on above: Order Comment: Campu s: M Performed By: #### L 600.80787 ####[facility] WOSZQHVTWP0634 [place], [place] [address]Rj# [phone] UA KETONE 80 Normal NEGATIVE [facility] Comment on above: Order Comment: Campu s: M Performed By: #### L 600.63257 ####[facility] [id number] [place] [address]Vb# [phone] UA LK ESTERASE Negative Normal NEGATIVE [facility] Comment on above: Order Comment: Campu s: M Performed By: #### L 600.12044 ####[facility] UFXATCKIRT6866 [place], [place] [address]Vs# [phone] UA NITRITE Negative Normal NEGATIVE [facility] Comment on above: Order Comment: Campu s: M Performed By: #### L 600.09618 ####[facility] RZAQJKKLFF7713 [place], [place] [address]Ev# [phone] UA PH 6.0 Normal 5-6 [facility] Comment on above: Order Comment: Campu s: M Performed By: #### L 600.92116 ####[facility] [id number] [place], [place] [address]Sv# [phone] UA PROTEIN Negative Normal NEGATIVE [facility] Comment on above: Order Comment: Campu s: M Performed By: #### L 600.01668 ####[facility] [id number] [place] [address]Ce# [phone] UA SPEC GRAV 1.018 Normal 1.005-1.030 [facility] Comment on above: Order Comment: Campu s: M Performed By: #### L 600.09717 ####[facility] [id number] [place] [address]Od# [phone] UA UROBILINOGEN 2.0 Normal NORMAL [facility] Comment on above: Order Comment: Campu s: M Performed By: #### L 600.24122 ####[facility] [id number] [place] [address]Br# [phone] VBG PHon 12-27-2021 VBG PH 7.57 MMHG High 7.31-7.41 [facility] Comment on above: Order Comment: Campu s: M Performed By: #### L 100.59764 ####[facility] NVYUZZUZAD4815 [place], [place] [address]Zb# [phone] Stacie 12-26-2021 EMERGENCY PHYSICIAN REPORT This is a preliminary report only, as the practitioner review and authentication has not occurred. Normal [facility] Normal [facility] GLUCOSE METERon 12-26-2021 Glucose [Mass/Vol] 246 mg/dL High 70-115 [facility] Glucose [Mass/Vol] 311 mg/dL High 70-115 [facility] [place] PROG.NOTEon 12-26-2021 PROG.NOTE Normal [facility] Progress Note-Physician Normal [facility] ABDOMEN OR KUBon 12-25-2021 ABDOMEN OR KUB Normal [facility] [place] BETA-HYDRO BUTon 12-25-2021 BETA-HYDRO BUT 2.49 MMOL/L High 0.02-0.27 [facility] Comment on above: Order Comment: Campu s: M Result Comment: Bloo d ketone levels will vary depending on several factors(for example, food intake, alcohol intake and conditionssuch as ketoacidosis). Patients should be fasting 12 hoursprior to collection.PATIENT SAMPLES WITH HIGH LEVELS OF M-PROTEIN (I.E.GAMMOPATHY) MAY AFFECT THE ACCURACY OF THIS ASSAY. Performed By: #### L 500.92173 ####[facility] NCKWQSKUVI3500 [place], [place] [address]Pc# [phone] BMPon 12-25-2021 Anion gap [Moles/Vol] 13 mmol/L Normal 5-16 [facility] Comment on above: Order Comment: Campu s: M Performed By: #### L 500.53777, L500.22438, L500.20607, L500.38457, L500.02917 ####[facility] WNZSFWUVPS0695 [place], [place] [address]Zf# [phone] Calcium [Mass/Vol] 10.0 mg/dL Normal 8.5-10.5 [facility] Comment on above: Order Comment: Campu s: M Result Comment: NOTE NEW NORMAL RANGE DUE TO REAGENT CHANGE Performed By: #### L 500.31176, L500.02338, L500.69561, L500.24521, L500.41176 ####[facility] [id number] [place], [place] [address]Gp# [phone] Chloride [Moles/Vol] 107 mmol/L Normal 98-107 [facility] Comment on above: Order Comment: Benjiu s: M Performed By: #### L 500.38215, L500.79031, L500.17839, L500.60411, L500.26581 ####[facility] [id number] [place], [place] [address]Db# [phone] CO2 [Moles/Vol] 17.0 mmol/L Low 21-32 [facility] Comment on above: Order Comment: Benjiu s: M Performed By: #### L 500.86094, L500.06972, L500.49675, L500.46220, L500.05064 ####[facility] KUZQJXEYXU3804 [place], [place] [address]Ku# [phone] Creatinine [Mass/Vol] 0.66 mg/dL Normal 0.510-0.950 [facility] Comment on above: Order Comment: Benjiu s: M Result Comment: Cleopatra ents receiving either N-Acetylcysteine (NAC) orMetamizole prior to venipuncture, may have falsely depressedresults. Performed By: #### L 500.11127, L500.88892, L500.78564, L500.33842, L500.70411 ####[facility] LYYDKYUXNQ0608 [place], [place] [address]Ht# [phone] Glucose [Mass/Vol] 359 mg/dL High 70-100 [facility] Comment on above: Order Comment: Benjiu s: M Result Comment: 70-1 00- Normal Fasting; 100-125 Impaired Fasting; greaterthan 126 on more than one result- Diabetes. ADA guidelines.Results may be falsely elevated after the administration ofSulfapyridine.Results may be falsely depressed after the administration ofSulfasalazine. Performed By: #### L 500.42975, L500.26467, L500.47651, L500.28820, L500.99352 ####[facility] POUSCROEDX2622 [place], [place] [address]Es# [phone] Potassium [Moles/Vol] 4.1 mmol/L Normal 3.5-5.1 [facility] Comment on above: Order Comment: Campu s: M Performed By: #### L 500.27754, L500.08150, L500.44520, L500.98935, L500.67522 ####[facility] SXITIRJJDE0308 [place], [place] [address]Gf# [phone] Sodium [Moles/Vol] 137 mmol/L Normal 136-145 [facility] Comment on above: Order Comment: Campu s: M Performed By: #### L 500.64035, L500.94049, L500.84046, L500.62377, L500.90666 ####[facility] [id number] [place], [place] [address]If# [phone] Urea nitrogen [Mass/Vol] 17 mg/dL Normal 7-26 [facility] Comment on above: Order Comment: Campu s: M Performed By: #### L 500.88684, L500.92953, L500.70864, L500.14243, L500.86807 ####[facility] RMUMPMHVFF4410 [place], [place] [address]Zl# [phone] Urea nitrogen/Creatinine [Mass ratio] 26 mg/mg High 15-24 [facility] Comment on above: Order Comment: Campu s: M Performed By: #### L 500.43519, L500.28925, L500.43022, L500.53259, L500.47928 ####[facility] YHZVQSJYPR0009 [place], [place] [address]Zc# [phone] CBC W/DIFFon 12-25-2021 BASO ABS 0.00 K/CU MM Normal 0-0.2 [facility] Comment on above: Order Comment: Campu s: M Performed By: #### L 200.90499 ####[facility] [id number] [place] [address]Yx# [phone] Basophils/100 WBC (Bld) 0.2 % Normal 0-2 [facility] Comment on above: Order Comment: Campu s: M Performed By: #### L 200.23280 ####[facility] [id number] [place] [address]Ge# [phone] EOS ABS 0.00 K/CU MM Normal 0-0.5 [facility] Comment on above: Order Comment: Campu s: M Performed By: #### L 200.20713 ####[address] [address]Si# [phone] Eosinophils/100 WBC (Bld) 0.0 % Normal 0-5 [facility] Comment on above: Order Comment: Campu s: M Performed By: #### L 200.38734 ####[address] [address]Db# [phone] Erythrocyte distribution width (RBC) [Ratio] 13.4 % Normal 11-14.5 [facility] Comment on above: Order Comment: Campu s: M Performed By: #### L 200.84997 ####[address] [address]Vt# [phone] Hematocrit (Bld) [Volume fraction] 38.3 % Normal 35.0-47.0 [facility] Comment on above: Order Comment: Campu s: M Performed By: #### L 200.59960 ####[address] [address]Wy# [phone] Hemoglobin (Bld) [Mass/Vol] 13.0 g/dL Normal 11.5-15.5 [facility] Comment on above: Order Comment: Campu s: M Performed By: #### L 200.11337 ####[facility] [id number] [place] [address]Iq# [phone] IMMATR GRAN ABS 0.20 K/CU MM Normal Less than 2 [facility] [place] Comment on above: Order Comment: Campu s: M Performed By: #### L 200.35112 ####[facility] [id number] [place], [place] [id number]# [phone] IMMATURE GRAN % 1.0 % Normal Less than 2 [facility] Comment on above: Order Comment: Campu s: M Performed By: #### L 200.17891 ####[facility] [id number] [place], [place] [address]Ul# [phone] LYMPH ABS 0.90 K/CU MM Normal 0.9-4.4 [facility] [place] Comment on above: Order Comment: Campu s: M Performed By: #### L 200.74721 ####[place] [id number]# [phone] Lymphocytes/100 WBC (Bld) 4.8 % Low 20-40 [facility] Comment on above: Order Comment: Campu s: M Performed By: #### L 200.88391 ####[place] [id number]# [phone] MCHC (RBC) [Mass/Vol] 33.9 g/dL Normal 32.0-36.0 [facility] [place] Comment on above: Order Comment: Campu s: M Performed By: #### L 200.74273 ####[facility] [id number] [place], [place] [id number]# [phone] MCV (RBC) [Entitic vol] 84.2 fL Normal 80.0-99.0 [facility] Comment on above: Order Comment: Campu s: M Performed By: #### L 200.35658 ####[facility] [id number] [place], [place] [id number]# [phone] MONO ABS 0.50 K/CU MM Normal 0.1-1.1 [facility] Comment on above: Order Comment: Campu s: M Performed By: #### L 200.60963 ####[facility] [id number] [place], [place] [id number]# [phone] Monocytes/100 WBC (Bld) 2.4 % Normal 2-10 [facility]: Order Comment: Campu s: M Performed By: #### L 200.53484 ####[facility] [id number] [place], [place] [address]Jc# [phone] NEUTROPHIL ABS 17.60 K/CU MM High 2.0-8.3 [facility] Comment on above: Order Comment: Campu s: M Performed By: #### L 200.94984 ####[facility] [id number] [place] [address]Er# [phone] Neutrophils/100 WBC (Bld) 91.6 % High 45-75 [facility] Comment on above: Order Comment: Campu s: M Performed By: #### L 200.67260 ####[address] [address]Lu# [phone] Nucleated RBC/100 WBC (Bld) [Ratio] 0.0 % Normal Less than 1 [facility] Comment on above: Order Comment: Campu s: M Performed By: #### L 200.41130 ####[facility] [id number] [place] [address]Pv# [phone] Platelet mean volume (Bld) [Entitic vol] 13.2 fL High 9.4-12.4 [facility] Comment on above: Order Comment: Campu s: M Performed By: #### L 200.95287 ####[address] [address]Fy# [phone] PLT 187 K/CU MM Normal 150-450 [facility] Comment on above: Order Comment: Campu s: M Result Comment: Accu racy questionable due to platelet clumping, actualplatelet count may be higher than the reported value. Performed By: #### L 200.67761 ####[facility] LLRRHBQWZO8849 [place], [place] [address]Fy# [phone] PLT EST UNABLE TO QUANTITATE Normal [facility] Comment on above: Order Comment: Campu s: M Performed By: #### L 200.14112 ####[facility] HEBKVFEXZH3242 [place], [place] [address]Fk# [phone] POIK 1+ Normal [facility] Comment on above: Order Comment: Campu s: M Performed By: #### L 200.71409 ####[facility] PQSFGLNWKA0033 [place], [place] [address]Om# [phone] POLY 1+ Normal [facility] Comment on above: Order Comment: Campu s: M Performed By: #### L 200.16228 ####[facility] ERANHNHAPZ9230 [place], [place] [address]Sa# [phone] RBC 4.55 M/CU MM Normal 3.90-5.30 [facility] Comment on above: Order Comment: Campu s: M Performed By: #### L 200.28718 ####[facility] PFIJJRBRPG8735 [place], [place] [address]Bx# [phone] WBC 19.2 K/CUMM High 4.5-11.0 [facility] Comment on above: Order Comment: Campu s: M Performed By: #### L 200.28698 ####[facility] [id number] [place] [address]Ev# [phone] [facility] KATHLEEN VILLA ([id number]) 1995 F T Date Time Provider Department 12/25/21 VELIA KAUR During your visit today, we recorded the following information about you: Velia Kaur MD 12/25/2021 12:44 PM Signed 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 She is out of infusion sets for [...] 04/16/2014 [Z34.90] 11/22/2013 04/16/2014 Diabetes mellitus in ([facility]) [O24.919] 12/25/2013 04/16/2014 DKA (diabetic ketoacidoses) [E11.10] [...] Encounter Status:Closed by VELIA KAUR on 12/25/21 [facility] DSon 12-25-2021 DS Normal [facility] GFR ESTon 12-25-2021 IF AMER Greater than 60 [facility] Comment on above: Order Comment: Campu s: M Performed By: #### L 500.48851, L500.11446, L500.57760, L500.57960, L500.40645 ####[facility] VETEUKIUVA1134 [place], [place] [address]Jo# [phone] IF non-AFR AMER Greater than 60 [facility] Comment on above: Order Comment: Campu s: M Performed By: #### L 500.80315, L500.47449, L500.61027, L500.31383, L500.89713 ####[facility] HKJIQFFSKC5470 [place], [place] [address]Ro# [phone] HCGon 12-25-2021 HCG SER RESULT Negative Normal NEGATIVE [facility] Comment on above: Order Comment: Campu s: M Performed By: #### L 500.33668, L500.40046, L500.96943, L500.97327, L500.67902 ####[facility] KMDRMFIWSP3720 [place], [place] [address]Qg# [phone] HP.IMS.ADMon 12-25-2021 Admission-H&P Normal [facility] HP.IMS.ADM Normal [facility] LACTATE BLOODon 12-25-2021 LACTATE BLOOD 3.03 MMOL/L High 0.40-2.00 [facility] Comment on above: Order Comment: Campu s: M Performed By: #### L 550.82357, L100.17991 ####[facility] PHVJWWXNHZ1560 [place], [place] [address]Ti# [phone] LIPASEon 12-25-2021 Lipase [Catalytic activity/Vol] 23 U/L Normal 12-60 [facility] Comment on above: Order Comment: Campu s: M Result Comment: NOTE NEW NORMAL RANGE DUE TO REAGENT CHANGE Performed By: #### L 500.84545, L500.51908, L500.31169, L500.28884, L500.05391 ####[facility] WBTSYXVJRK8025 [place], [place] [address]Kg# [phone] LIVERon 12-25-2021 Albumin [Mass/Vol] 4.2 g/dL Normal 3.2-5.0 [facility] Comment on above: Order Comment: Campu s: M Performed By: #### L 500.85765, L500.28099, L500.34862, L500.76950, L500.06852 ####[facility] ZFJINCMBJG6982 [place], [place] [address]Hm# [phone] Albumin/Globulin [Mass ratio] 1.6 {ratio} Normal 0.8-2.0 [facility] Comment on above: Order Comment: Campu s: M Performed By: #### L 500.52691, L500.24369, L500.72802, L500.01902, L500.00341 ####[facility] ADSEHMRHOR1798 [place], [place] [address]Zd# [phone] ALK PHOS 92 U/L Normal 45-117 [facility] Comment on above: Order Comment: Campu s: M Performed By: #### L 500.03137, L500.61837, L500.57597, L500.91606, L500.23374 ####[facility] CHYLLEKLGJ9998 [place], [place] [address]Sh# [phone] ALT [Catalytic activity/Vol] 13 U/L Normal 13-61 [facility] Comment on above: Order Comment: Benjiu s: M Result Comment: RESU LTS MAY BE FALSELY DEPRESSED AFTER THE ADMINISTRATION OFSULFASALAZINE AND/OR SULFAPYRIDINE. Performed By: #### L 500.38471, L500.91211, L500.97191, L500.04058, L500.59901 ####[facility] KSRLKIEUFB8769 [place], [place] [address]Ps# [phone] AST [Catalytic activity/Vol] 18 U/L Normal 8-34 [facility] Comment on above: Order Comment: Benjiu s: M Result Comment: RESU LTS MAY BE FALSELY DEPRESSED AFTER THE ADMINISTRATION OFSULFASALAZINE AND/OR SULFAPYRIDINE. Performed By: #### L 500.72083, L500.17055, L500.59261, L500.00067, L500.08722 ####[facility] QITFRFIZUP0729 [place], [place] [address]Ou# [phone] BILI DIRECT 0.3 MG/DL Normal 0.00-0.36 [facility] Comment on above: Order Comment: Benjiu s: M Result Comment: NOTE NEW NORMAL RANGE DUE TO REAGENT CHANGE Performed By: #### L 500.70636, L500.37395, L500.39194, L500.69831, L500.42624 ####[facility] TKIWWEFTNN7588 [place], [place] [address]Dh# [phone] BILI TOTAL 0.90 MG/DL Normal 0.2-1.0 [facility] Comment on above: Order Comment: Zach s: M Performed By: #### L 500.41044, L500.67894, L500.32202, L500.38556, L500.93067 ####[facility] MLATPHYCKX8420 [place], [place] [address]Jp# [phone] Globulin (S) [Mass/Vol] 2.6 g/dL Normal 2.2-4.2 [facility] Comment on above: Order Comment: Campu s: M Performed By: #### L 500.19536, L500.14317, L500.51873, L500.30605, L500.30412 ####[facility] YXEDHWRFKH6273 [place], [place] [address]Fs# [phone] Protein [Mass/Vol] 6.8 g/dL Normal 6.0-8.5 [facility] Comment on above: Order Comment: Campu s: M Performed By: #### L 500.53766, L500.05590, L500.19296, L500.68268, L500.24526 ####[facility] UANDZLJRKK1123 [place], [place] [address]Ti# [phone] [id number] 12-25-2021 SARS-CoV-2 (COVID-19) RNA DANIEL+probe Ql (Unsp spec) Negative Invalid Interpretation Code Negative [facility] Comment on above: Order Comment: Campu [...] performed by PCR. Performed By: #### L 770.01664 ####[facility] MPFUPXTQPX0236 [place], [place] [address]Rs# [phone] UA COMPLETEon 12-25-2021 Color (U) Straw Normal [facility] Comment on above: Order Comment: Campu s: M Performed By: #### L 600.69497 ####[facility] YTMFTIKRYA6481 [place], [place] [address]Ht# [phone] Glucose (U) [Mass/Vol] 500 mg/dL Normal NORMAL [facility] Comment on above: Order Comment: Campu s: M Performed By: #### L 600.77550 ####[facility] PBNSJESXNZ0966 [place], [place] [address]Zq# [phone] UA APPEARANCE Clear Normal CLEAR [facility] Comment on above: Order Comment: Campu s: M Performed By: #### L 600.06195 ####[facility] [id number] [place] [address]Fc# [phone] UA BILIRUBIN Negative Normal NEGATIVE [facility] Comment on above: Order Comment: Campu s: M Performed By: #### L 600.22618 ####[facility] [id number] [place] [address]Ev# [phone] UA BLOOD Negative Normal NEGATIVE [facility] Comment on above: Order Comment: Campu s: M Performed By: #### L 600.66725 ####[facility] [id number] [place] [address]Sl# [phone] UA KETONE 80 Normal NEGATIVE [facility] Comment on above: Order Comment: Campu s: M Performed By: #### L 600.34204 ####[facility] [id number] [place] [address]Wo# [phone] UA LK ESTERASE Negative Normal NEGATIVE [facility] Comment on above: Order Comment: Campu s: M Performed By: #### L 600.58563 ####[facility] [id number] [place] [address]Vl# [phone] UA NITRITE Negative Normal NEGATIVE [facility] Comment on above: Order Comment: Campu s: M Performed By: #### L 600.04490 ####[facility] [id number] [place] [address]Ch# [phone] UA PH 7.0 Normal 5-6 [facility] Comment on above: Order Comment: Campu s: M Performed By: #### L 600.94439 ####[facility] RWXUQGNZLP[address] [place] [address]Cs# [phone] UA PROTEIN Negative Normal NEGATIVE [facility] Comment on above: Order Comment: Campu s: M Performed By: #### L 600.88679 ####[facility] CIMXFPQTSV5557 [place], [place] [address]Iz# [phone] UA SPEC GRAV 1.028 Normal 1.005-1.030 [facility] Comment on above: Order Comment: Campu s: M Performed By: #### L 600.29774 ####[address] [address]Mr# [phone] UA UROBILINOGEN Negative Normal NORMAL [facility] Comment on above: Order Comment: Campu s: M Performed By: #### L 600.87785 ####[address] [address]Px# [phone] VBGPEon 12-25-2021 BASE EXCESS -3.6 MMOL/L Low 0-2 [facility] Comment on above: Order Comment: Campu s: M Performed By: #### L 550.88608, L100.59679 ####[facility] [id number] [place] [address]Kt# [phone] Body temperature 98.6 [degF] Normal [facility] Comment on above: Order Comment: Campu s: M Performed By: #### L 550.75188, L100.94020 ####[address] [address]Yw# [phone] EQUIPMENT UNKNOWN Normal [facility] Comment on above: Order Comment: Campu s: M Performed By: #### L 550.68282, L100.88872 ####[facility] S[address]APFWHTI[address] [place] [address]It# [phone] HCO3 (Bld) [Moles/Vol] 17.0 mmol/L Low 22-26 [facility] Comment on above: Order Comment: Campu s: M Performed By: #### L 550.75367, L100.04616 ####[facility] JZTGHT[address]XO[address] [place] [address]Hu# [phone] Hemoglobin (Bld) [Mass/Vol] 14.2 g/dL Low 16.0-22.0 [facility] Comment on above: Order Comment: Campu s: M Performed By: #### L 550.20365, L100.49179 ####[facility] EGDSFTECIM9[address] [place] [address]Iw# [phone] IONIZED CA 1.13 MMOL/L Normal 1.13-1.32 [facility] Comment on above: Order Comment: Campu s: M Performed By: #### L 550.82839, L100.29359 ####[facility] [id number] [place] [address]Pz# [phone] Potassium [Moles/Vol] 4.1 mmol/L Normal 3.5-5.0 [facility] Comment on above: Order Comment: Campu s: M Performed By: #### L 550.62571, L100.39885 ####[address] [address]Xa# [phone] SAMPLE SITE VENOUS Normal [facility] Comment on above: Order Comment: Campu s: M Performed By: #### L 550.98344, L100.64659 ####[address] [address]In# [phone] SAMPLE TYPE VENOUS Normal [facility] Comment on above: Order Comment: Campu s: M Performed By: #### L 550.62558, L100.93770 ####[facility] MSDY[address]URGX[address] [place] [address]Ib# [phone] Sodium [Moles/Vol] 136 mmol/L Normal 136-148 [facility] Comment on above: Order Comment: Campu s: M Performed By: #### L 550.23050, L100.51054 ####[facility] KGLCMATAJO[address] [place] [address]Zl# [phone] VBG CARBOXYHGB 1.4 % Normal 0-10 [facility] Comment on above: Order Comment: Campu s: M Performed By: #### L 550.07331, L100.73685 ####[facility] DOSBPIQECJ3519 [place], [place] [address]Rk# [phone] VBG METHGB 0.3 % Low 0.4-1.5 [facility] Comment on above: Order Comment: Campu s: M Performed By: #### L 550.52429, L100.81544 ####[place] [address] [place], [place] [address]Hf# [phone] VBG O2 CAPACITY 19.4 VOL% Normal [facility] Comment on above: Order Comment: Campu s: M Performed By: #### L 550.92371, L100.71895 ####[address] [address]Mk# [phone] VBG O2 HG SATUR 65.5 % Normal 40-70 [facility] Comment on above: Order Comment: Campu s: M Performed By: #### L 550.55507, L100.63778 ####[address] [address]If# [phone] VBG PCO2 21.5 MMHG Critically low 40-50 [facility] Comment on above: Order Comment: Campu s: M Result Comment: CRIT ICAL VALUE(S) VERIFIED AND HAND DELIVERED TO AND READBACK BY DR. HOFFMAN AT 1835 12/25/21 BY JOSE MARCIAL. Performed By: #### L 550.80400, L100.10908 ####[facility] [address]WHJ[address] [place] [address]Ix# [phone] VBG PH 7.52 MMHG High 7.31-7.41 [facility] Comment on above: Order Comment: Campu s: M Performed By: #### L 550.94346, L100.30043 ####[facility] UMLTMORHMK5887 [place], [place] [address]Fz# [phone] VBG PO2 LESS THAN 32.4 Low 35-45 [facility] Comment on above: Order Comment: Campu s: M Result Comment: VALU E IS OUTSIDE OF THE VERIFIED RANGES OF THIS ANALYZER.LIN MARCIAL Performed By: #### L 550.88934, L100.23358 ####[facility] RWKJAHGXYS5052 [place], [place] [address]Ne# [phone] DISCH.SUMon 10-25-2021 DISCH.SUM Normal [facility] GLUCOSE METERon 10-25-2021 Glucose [Mass/Vol] 113 mg/dL Normal 70-115 [facility] Glucose [Mass/Vol] 108 mg/dL Normal 70-115 [facility] BMPon 10-24-2021 Anion gap [Moles/Vol] 12 mmol/L Normal 5-16 [facility] Comment on above: Order Comment: Campu s: M Performed By: #### L 500.42589, L500.38151 ####[facility] AKCMIAKMOL8796 [place], [place] [address]Ys# [phone] Calcium [Mass/Vol] 8.4 mg/dL Low 8.5-10.5 [facility] Comment on above: Order Comment: Campu s: M Result Comment: NOTE NEW NORMAL RANGE DUE TO REAGENT CHANGE Performed By: #### L 500.82128, L500.99962 ####[facility] LKKKDAYIBJ5659 [place], [place] [address]Tq# [phone] Chloride [Moles/Vol] 103 mmol/L Normal 98-107 [facility] Comment on above: Order Comment: Campu s: M Performed By: #### L 500.37049, L500.85302 ####[facility] LQLQNXLAOJ7781 [place], [place] [address]Vg# [phone] CO2 [Moles/Vol] 24.0 mmol/L Normal 21-32 [facility] Comment on above: Order Comment: Campu s: M Performed By: #### L 500.57478, L500.90514 ####[facility] YOGJAOCWRH0689 [place], [place] [address]Mw# [phone] Creatinine [Mass/Vol] 0.69 mg/dL Normal 0.510-0.950 [facility] Comment on above: Order Comment: Campu s: M Result Comment: Cleopatra ents receiving either N-Acetylcysteine (NAC) orMetamizole prior to venipuncture, may have falsely depressedresults. Performed By: #### L 500.37909, L500.15961 ####[facility] TCYVCJXXOR2233 [place], [place] [address]Uu# [phone] Glucose [Mass/Vol] 113 mg/dL High 70-100 [facility] Comment on above: Order Comment: Campu s: M Result Comment: 70-1 00- Normal Fasting; 100-125 Impaired Fasting; greaterthan 126 on more than one result- Diabetes. ADA guidelines.Results may be falsely elevated after the administration ofSulfapyridine.Results may be falsely depressed after the administration ofSulfasalazine. Performed By: #### L 500.88740, L500.36807 ####[facility] [address]QKS[address] [place] [address]Vr# [phone] Potassium [Moles/Vol] 3.0 mmol/L Low 3.5-5.1 [facility] Comment on above: Order Comment: Campu s: M Result Comment: NOT A CRITICAL Performed By: #### L 500.37924, L500.43933 ####[facility] LLVFDSCIEU9602 [place], [place] [address]Bx# [phone] Sodium [Moles/Vol] 139 mmol/L Normal 136-145 [facility] Comment on above: Order Comment: Campu s: M Performed By: #### L 500.83832, L500.10546 ####[facility] RMKMZMQWPM6029 [place], [place] [address]Bl# [phone] Urea nitrogen [Mass/Vol] 10 mg/dL Normal 7-26 [facility] Comment on above: Order Comment: Campu s: M Performed By: #### L 500.44993, L500.32531 ####[facility] PVQQORCBSF3953 [place], [place] [address]Ul# [phone] Urea nitrogen/Creatinine [Mass ratio] 15 mg/mg Normal 15-24 [facility] Comment on above: Order Comment: Campu s: M Performed By: #### L 500.53918, L500.25393 ####[facility] WRRINPTNKA1437 [place], [place] [address]Av# [phone] CBC W/DIFFon 10-24-2021 BASO ABS 0.00 K/CU MM Normal 0-0.2 [facility] Comment on above: Order Comment: Campu s: M Performed By: #### L 200.12723 ####[facility] [id number] [place] [address]Fs# [phone] Basophils/100 WBC (Bld) 0.2 % Normal 0-2 [facility] Comment on above: Order Comment: Campu s: M Performed By: #### L 200.75558 ####[facility] [address]VE[address]QZ[address] [place], [place] [address]Ph# [phone] EOS ABS 0.00 K/CU MM Normal 0-0.5 [facility] Comment on above: Order Comment: Campu s: M Performed By: #### L 200.70972 ####[facility] [id number] [place] [address]Si# [phone] Eosinophils/100 WBC (Bld) 0.0 % Normal 0-5 [facility] Comment on above: Order Comment: Campu s: M Performed By: #### L 200.20019 ####[facility] [id number] [place] [address]Hb# [phone] Erythrocyte distribution width (RBC) [Ratio] 13.3 % Normal 11-14.5 [facility] Comment on above: Order Comment: Campu s: M Performed By: #### L 200.48074 ####[facility] [address]VIOKGZZIB[address] [place] [address]Ah# [phone] Hematocrit (Bld) [Volume fraction] 36.5 % Normal 35.0-47.0 [facility] Comment on above: Order Comment: Campu s: M Performed By: #### L 200.98771 ####[facility] SFBIXJTTRP[address] [place], [place] [address]Ph# [phone] Hemoglobin (Bld) [Mass/Vol] 12.3 g/dL Normal 11.5-15.5 [facility] Comment on above: Order Comment: Campu s: M Performed By: #### L 200.98538 ####[facility] HBTVBXNESA[address] [place], [place] [address]Ph# [phone] IMMATR GRAN ABS 0.20 K/CU MM Normal Less than 2 [facility] Comment on above: Order Comment: Campu s: M Performed By: #### L 200.26627 ####[place] [address]Ph# [phone] IMMATURE GRAN % 1.3 % Normal Less than 2 [facility] Comment on above: Order Comment: Campu s: M Performed By: #### L 200.40323 ####[facility] QRQTRILCZH[address] [place], [place] [address]Ph# [phone] LYMPH ABS 1.90 K/CU MM Normal 0.9-4.4 [facility] Comment on above: Order Comment: Campu s: M Performed By: #### L 200.30487 ####[facility] MNKQOLETDO[address] [place], [place] [address]Ph# [phone] Lymphocytes/100 WBC (Bld) 14.9 % Low 20-40 [facility] Comment on above: Order Comment: Campu s: M Performed By: #### L 200.21748 ####[facility] Y[address]ZWBBDPXX[address] [place], [place] [address]Ph# [phone] MCHC (RBC) [Mass/Vol] 33.7 g/dL Normal 32.0-36.0 [facility] Comment on above: Order Comment: Campu s: M Performed By: #### L 200.18843 ####[facility] FRYKVFHQUO[address] [place], [place] [address]Ph# [phone] MCV (RBC) [Entitic vol] 84.1 fL Normal 80.0-99.0 [facility] Comment on above: Order Comment: Campu s: M Performed By: #### L 200.86895 ####[facility] LGKBVFSQKS8296 [place], [place] [address]Qh# [phone] MONO ABS 0.70 K/CU MM Normal 0.1-1.1 [facility] Comment on above: Order Comment: Campu s: M Performed By: #### L 200.77195 ####[place] [address]Ph# [phone] Monocytes/100 WBC (Bld) 5.3 % Normal 2-10 [facility] Comment on above: Order Comment: Campu s: M Performed By: #### L 200.85871 ####[place] [address]Ph# [phone] NEUTROPHIL ABS 10.10 K/CU MM High 2.0-8.3 [facility] Comment on above: Order Comment: Campu s: M Performed By: #### L 200.82153 ####[facility] [id number] [place], [place] [id number]# [phone] Neutrophils/100 WBC (Bld) 78.3 % High 45-75 [facility] Comment on above: Order Comment: Campu s: M Performed By: #### L 200.89855 ####[facility] [id number] [place], [place] [id number]# [phone] Nucleated RBC/100 WBC (Bld) [Ratio] 0.0 % Normal Less than 1 [facility] Comment on above: Order Comment: Campu s: M Performed By: #### L 200.18748 ####[facility] [id number] [place] [address]Pb# [phone] Platelet mean volume (Bld) [Entitic vol] 11.8 fL Normal 9.4-12.4 [facility] Comment on above: Order Comment: Campu s: M Performed By: #### L 200.62102 ####[facility] [id number] [place], [place] [address]Fo# [phone] PLT 176 K/CU MM Normal 150-450 [facility] Comment on above: Order Comment: Campu s: M Performed By: #### L 200.83178 ####[facility] [id number] [place], [place] [address]Kz# [phone] RBC 4.34 M/CU MM Normal 3.90-5.30 [facility] Comment on above: Order Comment: Campu s: M Performed By: #### L 200.15457 ####[facility] [id number] [place], [place] [address]Ad# [phone] WBC 12.9 K/CUMM High 4.5-11.0 [facility] Comment on above: Order Comment: Campu s: M Performed By: #### L 200.02236 ####[facility] [id number] [place] [address]Fu# [phone] GFR ESTon 10-24-2021 IF AMER Greater than 60 [facility] Comment [facility]: Order Comment: Campu s: M Performed By: #### L 500.96248, L500.40088 ####[facility] [id number] [place] [address]Vz# [phone] IF non-AFR AMER Greater than 60 Normal [facility] Comment on above: Order Comment: Campu s: M Performed By: #### L 500.66548, L500.52166 ####[facility] [id number] [place] [address]Ly# [phone] GLUCOSE METERon 10-24-2021 Glucose [Mass/Vol] 203 mg/dL High 70-115 [facility] [place] Glucose [Mass/Vol] 115 mg/dL Normal 70-115 [facility] Glucose [Mass/Vol] 103 mg/dL Normal 70-115 [facility] Glucose [Mass/Vol] 112 mg/dL Normal 70-115 [facility] PROG IMSon 10-24-2021 PROG IMS Normal [facility] Progress Note-Hospitalist Normal [facility] PTon 10-24-2021 INR Coag (PPP) [Relative time] 1.05 {INR} Normal 0.9-1.1 [facility] Comment on above: Order Comment: Benjiu s: M Result Comment: Den mmended PT INR therapeutic range for care home andprophylactic therapy is 2.0 - 3.0. For heart valve andshunt patients the range is 2.5 - 3.5. Performed By: #### L 300.53679 ####[facility] [id number] [place] [address]Rr# [phone] PTS 11.4 SECONDS Normal 9.5-12.0 [facility] Comment on above: Order Comment: Benjiu s: M Performed By: #### L 300.14976 ####[facility] [id number] [place] [address] 1940[address]Ls# [phone] UA COMPLETEon 10-24-2021 Color (U) Straw Normal [facility] Comment on above: Order Comment: Benjiu s: M Performed By: #### L 600.76082 ####[facility] RMLMOVCAAX4220 [place], [place] [address]Hd# [phone] Glucose (U) [Mass/Vol] Negative Normal NORMAL Me [facility] Comment on above: Order Comment: Campu s: M Performed By: #### L 600.08787 ####[facility] TOKLUSLOGM8355 [place], [place] [address]Aa# [phone] UA APPEARANCE Clear Normal CLEAR [facility] Comment on above: Order Comment: Campu s: M Performed By: #### L 600.79059 ####[facility] HKZNGJQIRG5700 [place], [place] [address]Md# [phone] UA BILIRUBIN Negative Normal NEGATIVE [facility] Comment on above: Order Comment: Campu s: M Performed By: #### L 600.50974 ####[facility] GYXYDDSJTY4372 [place], [place] [address]Gk# [phone] UA BLOOD Negative Normal NEGATIVE [facility] Comment on above: Order Comment: Campu s: M Performed By: #### L 600.99153 ####[facility] WOFOVWIUID7517 [place], [place] [address]Ub# [phone] UA KETONE 20 Normal NEGATIVE [facility] Comment on above: Order Comment: Campu s: M Performed By: #### L 600.94429 ####[facility] JHMWSCZJVF1201 [place], [place] [address]Fd# [phone] UA LK ESTERASE Negative Normal NEGATIVE [facility] Comment on above: Order Comment: Campu s: M Performed By: #### L 600.04396 ####[facility] GILJOKFRWA8179 [place], [place] [address]Ff# [phone] UA NITRITE Negative Normal NEGATIVE [facility] Comment on above: Order Comment: Campu s: M Performed By: #### L 600.85877 ####[facility] [id number] [place] [address]Ff# [phone] UA PH 7.0 Normal 5-6 [facility] Comment on above: Order Comment: Campu s: M Performed By: #### L 600.01672 ####[facility] [id number] [place] [address]Tt# [phone] UA PROTEIN Negative Normal NEGATIVE [facility] Comment on above: Order Comment: Campu s: M Performed By: #### L 600.93089 ####[facility] KROMEGVCLO9225 [place], [place] [address]Ws# [phone] UA SPEC GRAV 1.009 Normal 1.005-1.030 [facility] Comment on above: Order Comment: Campu s: M Performed By: #### L 600.29284 ####[facility] DPEMOXTHSC0514 [place], [place] [address]Fe# [phone] UA UROBILINOGEN Negative Normal NORMAL [facility] Comment on above: Order Comment: Campu s: M Performed By: #### L 600.98940 ####[facility] PLINUOMILO2274 [place], [place] [address]Tp# [phone] BMPon 10-23-2021 Anion gap [Moles/Vol] 12 mmol/L Normal 5-16 [facility] Comment on above: Order Comment: Campu s: M Performed By: #### L 500.89889, L500.57981, L500.44740 ####[facility] AMOEQDDPQN3083 [place], [place] [address]Yc# [phone] Calcium [Mass/Vol] 8.7 mg/dL Normal 8.5-10.5 [facility] Comment on above: Order Comment: Campu s: M Result Comment: NOTE NEW NORMAL RANGE DUE TO REAGENT CHANGE Performed By: #### L 500.76851, L500.12334, L500.08491 ####[facility] UWEMIGSLUF7702 [place], [place] [address]Bo# [phone] Chloride [Moles/Vol] 107 mmol/L Normal 98-107 [facility] Comment on above: Order Comment: Campu s: M Performed By: #### L 500.22121, L500.51163, L500.30858 ####[facility] VSGSYHTBGF4268 [place], [place] [address]Am# [phone] CO2 [Moles/Vol] 22.0 mmol/L Normal 21-32 [facility] Comment on above: Order Comment: Campu s: M Performed By: #### L 500.07000, L500.67683, L500.81732 ####[facility] NRUZQGXXVT6244 [place], [place] [address]Ta# [phone] Creatinine [Mass/Vol] 0.62 mg/dL Normal 0.510-0.950 [facility] Comment on above: Order Comment: Campu s: M Result Comment: Cleopatra ents receiving either N-Acetylcysteine (NAC) orMetamizole prior to venipuncture, may have falsely depressedresults. Performed By: #### L 500.34843, L500.77352, L500.40889 ####[facility] ZAAHXEQUGU0469 [place], [place] [address]Ox# [phone] Glucose [Mass/Vol] 208 mg/dL High 70-100 [facility] Comment on above: Order Comment: Campu s: M Result Comment: 70-1 00- Normal Fasting; 100-125 Impaired Fasting; greaterthan 126 on more than one result- Diabetes. ADA guidelines.Results may be falsely elevated after the administration ofSulfapyridine.Results may be falsely depressed after the administration ofSulfasalazine. Performed By: #### L 500.66664, L500.51297, L500.86799 ####[facility] BLAGYGUPCJ1329 [place], [place] [address]Sk# [phone] Potassium [Moles/Vol] 3.2 mmol/L Low 3.5-5.1 [facility] Comment on above: Order Comment: Campu s: M Performed By: #### L 500.65994, L500.44553, L500.20142 ####[facility] WNLSRIMLHZ2801 [place], [place] [address]Gq# [phone] Sodium [Moles/Vol] 141 mmol/L Normal 136-145 [facility] Comment on above: Order Comment: Campu s: M Performed By: #### L 500.36342, L500.63613, L500.97480 ####[facility] XWWKXTLAES6233 [place], [place] [address]Dk# [phone] Urea nitrogen [Mass/Vol] 16 mg/dL Normal 7-26 [facility] Comment on above: Order Comment: Campu s: M Performed By: #### L 500.13746, L500.28852, L500.10114 ####[facility] QLDJHQKKMY1035 [place], [place] [address]Ag# [phone] Urea nitrogen/Creatinine [Mass ratio] 26 mg/mg High 15-24 [facility] Comment on above: Order Comment: Campu s: M Performed By: #### L 500.22352, L500.16859, L500.56261 ####[facility] BNAOUJFURN[address] [place] [address]Fc# [phone] CBC W/DIFFon 10-23-2021 BASO ABS 0.00 K/CU MM Normal 0-0.2 [facility] Comment on above: Order Comment: Campu s: M Performed By: #### L 200.24293 ####[address] [address]Oe# [phone] Basophils/100 WBC (Bld) 0.2 % Normal 0-2 [facility] Comment on above: Order Comment: Campu s: M Performed By: #### L 200.38393 ####[address] [address]Br# [phone] EOS ABS 0.00 K/CU MM Normal 0-0.5 [facility] Comment on above: Order Comment: Campu s: M Performed By: #### L 200.69246 ####[address] [address]Yr# [phone] Eosinophils/100 WBC (Bld) 0.0 % Normal 0-5 [facility] Comment on above: Order Comment: Campu s: M Performed By: #### L 200.13772 ####[address] [address]Xq# [phone] Erythrocyte distribution width (RBC) [Ratio] 13.9 % Normal 11-14.5 [facility] Comment on above: Order Comment: Campu s: M Performed By: #### L 200.69085 ####[address] [address]Ug# [phone] Hematocrit (Bld) [Volume fraction] 32.9 % Low 35.0-47.0 [facility] Comment [facility] above: Order Comment: Campu s: M Performed By: #### L 200.68578 ####[facility] UNJYHNXLDP[address] [place], [place] [address]Ph# [phone] Hemoglobin (Bld) [Mass/Vol] 11.0 g/dL Low 11.5-15.5 [facility] Comment on above: Order Comment: Campu s: M Performed By: #### L 200.23778 ####[facility] VVOPMKHHIK[address] [place] [address]Tn# [phone] IMMATR GRAN ABS 0.10 K/CU MM Normal Less than 2 [facility] Comment on above: Order Comment: Campu s: M Performed By: #### L 200.39369 ####[place] [address]Ph# [phone] IMMATURE GRAN % 0.8 % Normal Less than 2 [facility] Comment on above: Order Comment: Campu s: M Performed By: #### L 200.76070 ####[place] [address]Ph# [phone] LYMPH ABS 1.80 K/CU MM Normal 0.9-4.4 [facility] Comment on above: Order Comment: Campu s: M Performed By: #### L 200.84013 ####[place] [address]Ph# [phone] Lymphocytes/100 WBC (Bld) 10.5 % Low 20-40 [facility] Comment on above: Order Comment: Campu s: M Performed By: #### L 200.80990 ####[facility] [id number] [place], [place] [address]Ph# [phone] MCHC (RBC) [Mass/Vol] 33.4 g/dL Normal 32.0-36.0 [facility] Comment on above: Order Comment: Campu s: M Performed By: #### L 200.10677 ####[facility] JVFMTSOUYO4[address] [place], [place] [address]Ph# [phone] MCV (RBC) [Entitic vol] 84.6 fL Normal 80.0-99.0 [facility] Comment on above: Order Comment: Campu s: M Performed By: #### L 200.11628 ####[facility] CTXNTZTKCO9668 [place], [place] [address]Lk# [phone] MONO ABS 0.70 K/CU MM Normal 0.1-1.1 [facility] Comment on above: Order Comment: Campu s: M Performed By: #### L 200.03320 ####[facility] SGCXCATQTP9729 [place] [address]Ph# [phone] Monocytes/100 WBC (Bld) 3.9 % Normal 2-10 [facility] Comment on above: Order Comment: Campu s: M Performed By: #### L 200.41330 ####[facility] WFFTMMMYBK8756 [place] [address]Ph# [phone] NEUTROPHIL ABS 14.50 K/CU MM High 2.0-8.3 [facility] Comment on above: Order Comment: Campu s: M Performed By: #### L 200.91184 ####[facility] [id number] [place], [place] [address]Ph# [phone] Neutrophils/100 WBC (Bld) 84.6 % High 45-75 [facility] Comment on above: Order Comment: Campu s: M Performed By: #### L 200.44528 ####[facility] FJPOWKIJHV1834 [place] [address]Ph# [phone] Nucleated RBC/100 WBC (Bld) [Ratio] 0.0 % Normal Less than 1 [facility] Comment on above: Order Comment: Campu s: M Performed By: #### L 200.19992 ####[facility] RZLFZZDVRO0148 [place] [address]Ph# [phone] Platelet mean volume (Bld) [Entitic vol] 12.2 fL Normal 9.4-12.4 [facility] Comment on above: Order Comment: Campu s: M Performed By: #### L 200.76838 ####[facility] JXRXBPQDFN5907 [place], [place] [address]Rz# [phone] PLT 145 K/CU MM Low 150-450 [facility] Comment on above: Order Comment: Campu s: M Performed By: #### L 200.85830 ####[facility] KJGCXDAAIX2626 [place], [place] [address]Wq# [phone] RBC 3.89 M/CU MM Low 3.90-5.30 [facility] Comment on above: Order Comment: Campu s: M Performed By: #### L 200.80696 ####[facility] QVIVULSPMB6843 [place], [place] [address]Qe# [phone] WBC 17.1 K/CUMM High 4.5-11.0 [facility] Comment on above: Order Comment: Campu s: M Performed By: #### L 200.17674 ####[facility] WMIWXRAVCK9[address] [place] [address]Yz# [phone] GFR ESTon 10-23-2021 IF AMER Greater than 60 Normal [facility] Comment on above: Order Comment: Campu s: M Performed By: #### L 500.40512, L500.55805, L500.74299 ####[facility] XEJVEQEBJB9392 [place], [place] [address]Vb# [phone] IF non-AFR AMER Greater than 60 Normal [facility] Comment [facility] above: Order Comment: Campu s: M Performed By: #### L 500.28965, L500.29308, L500.36362 ####[facility] YNQKHIWOKT4896 [place], [place] [address]Id# [phone] GLUCOSE METERon 10-23-2021 Glucose [Mass/Vol] 142 mg/dL High 70-115 [facility] Glucose [Mass/Vol] 127 mg/dL High 70-115 [facility] Glucose [Mass/Vol] 172 mg/dL High 70-115 [facility] MAGNESIUMon 10-23-2021 Magnesium [Mass/Vol] 1.7 mg/dL Normal 1.6-2.6 [facility] Comment on above: Order Comment: Campu s: M Performed By: #### L 500.84058, L500.84438, L500.26900 ####[facility] DJLAMPGOMB9035 [place], [place] [address]Rw# [phone] PROG IMSon 10-23-2021 PROG IMS Normal [facility] Progress Note-Hospitalist Normal [facility] BMPon 10-22-2021 Anion gap [Moles/Vol] 10 mmol/L Normal 5-16 [facility] Comment on above: Order Comment: Campu s: M Performed By: #### L 500.92986, L500.31431 ####[facility] VALOFGPZLS4735 [place], [place] [address]Me# [phone] Calcium [Mass/Vol] 8.9 mg/dL Normal 8.5-10.5 [facility] Comment on above: Order Comment: Campu s: M Result Comment: NOTE NEW NORMAL RANGE DUE TO REAGENT CHANGE Performed By: #### L 500.60987, L500.27960 ####[facility] SXMLNFYZFR7732 [place], [place] [address]Gs# [phone] Chloride [Moles/Vol] 109 mmol/L High 98-107 [facility] Comment on above: Order Comment: Campu s: M Performed By: #### L 500.37322, L500.17035 ####[facility] XAIKTPTENO0347 [place], [place] [address]Jb# [phone] CO2 [Moles/Vol] 20.0 mmol/L Low 21-32 [facility] Comment on above: Order Comment: Campu s: M Performed By: #### L 500.25430, L500.42476 ####[facility] LJQMEFKIKA5854 [place], [place] [address]Cm# [phone] Creatinine [Mass/Vol] 0.63 mg/dL Normal 0.510-0.950 [facility] Comment on above: Order Comment: Campu s: M Result Comment: Cleopatra ents receiving either N-Acetylcysteine (NAC) orMetamizole prior to venipuncture, may have falsely depressedresults. Performed By: #### L 500.21278, L500.68340 ####[facility] ZKYHCXGEHI8436 [place], [place] [address]Ol# [phone] Glucose [Mass/Vol] 237 mg/dL High 70-100 [facility] Comment on above: Order Comment: Campu s: M Result Comment: 70-1 00- Normal Fasting; 100-125 Impaired Fasting; greaterthan 126 on more than one result- Diabetes. ADA guidelines.Results may be falsely elevated after the administration ofSulfapyridine.Results may be falsely depressed after the administration ofSulfasalazine. Performed By: #### L 500.68180, L5.07841 ####[facility] [id number] [place] [address]Rj# [phone] Potassium [Moles/Vol] 3.8 mmol/L Normal 3.5-5.1 [facility] Comment on above: Order Comment: Campu s: M Performed By: #### L 500.02483, L5.17783 ####[facility] [id number] [place] [address]Va# [phone] Sodium [Moles/Vol] 140 mmol/L Normal 136-145 [facility] Comment on above: Order Comment: Campu s: M Performed By: #### L 500.19270, L5.76198 ####[facility] [id number] [place] [address]Ho# [phone] Urea nitrogen [Mass/Vol] 15 mg/dL Normal 7-26 [facility] Comment on above: Order Comment: Campu s: M Performed By: #### L 500.01541, L5.60408 ####[facility] IXSULMUPID[address] [place] [address]Nw# [phone] Urea nitrogen/Creatinine [Mass ratio] 24 mg/mg Normal 15-24 [facility] Comment on above: Order Comment: Campu s: M Performed By: #### L 500.57795, L500.27497 ####[facility] ACCZCPAHCK7076 [place], [place] [address]Vh# [phone] Urea nitrogen/Creatinine [Mass ratio] 25 mg/mg High 15-24 [facility] Comment on above: Order Comment: Campu s: M Performed By: #### L 500.08649, L500.50524, L500.65757, L500.73273 ####[facility] VGSJLYMXJG3069 [place], [place] [address]Ne# [phone] Anion gap [Moles/Vol] 12 mmol/L Normal 5-16 [facility] Comment on above: Order Comment: Campu s: M Performed By: #### L 500.95842, L500.03124, L500.64967, L500.55895 ####[facility] IQNUWKXMDD5628 [place], [place] [address]Ad# [phone] Calcium [Mass/Vol] 10.1 mg/dL Normal 8.5-10.5 [facility] Comment on above: Order Comment: Campu s: M Result Comment: NOTE NEW NORMAL RANGE DUE TO REAGENT CHANGE Performed By: #### L 500.93567, L500.14092, L500.88484, L500.52887 ####[facility] RFDGNOUJPD7108 [place], [place] [address]Kv# [phone] Chloride [Moles/Vol] 107 mmol/L Normal 98-107 [facility] Comment on above: Order Comment: Campu s: M Performed By: #### L 500.92489, L500.16040, L500.81516, L500.85777 ####[facility] CRLPJPGUHZ6269 [place], [place] [address]Fn# [phone] CO2 [Moles/Vol] 20.0 mmol/L Low 21-32 [facility] Comment on above: Order Comment: Campu s: M Performed By: #### L 500.55135, L500.46106, L500.02134, L500.07733 ####[facility] UYGCHMOBSL6326 [place], [place] [address]Jl# [phone] Creatinine [Mass/Vol] 0.64 mg/dL Normal 0.510-0.950 [facility] Comment on above: Order Comment: Zach s: M Result Comment: Cleopatra ents receiving either N-Acetylcysteine (NAC) orMetamizole prior to venipuncture, may have falsely depressedresults. Performed By: #### L 500.97273, L500.77113, L500.02973, L500.13114 ####[facility] HZYNHOEHJS4412 [place], [place] [address]Dy# [phone] Glucose [Mass/Vol] 309 mg/dL High 70-100 [facility] Comment on above: Order Comment: Benjiu s: M Result Comment: 70-1 00- Normal Fasting; 100-125 Impaired Fasting; greaterthan 126 on more than one result- Diabetes. ADA guidelines.Results may be falsely elevated after the administration ofSulfapyridine.Results may be falsely depressed after the administration ofSulfasalazine. Performed By: #### L 500.61833, L500.55575, L500.19109, L500.01276 ####[facility] JAJOOZIQYV6666 [place], [place] [address]Xu# [phone] Potassium [Moles/Vol] 3.9 mmol/L Normal 3.5-5.1 [facility] Comment on above: Order Comment: Zach s: M Performed By: #### L 500.16787, L500.47603, L500.02111, L500.61901 ####[facility] XBWJWGXJLO5753 [place], [place] [address]Qk# [phone] Sodium [Moles/Vol] 139 mmol/L Normal 136-145 [facility] Comment on above: Order Comment: Zach s: M Performed By: #### L 500.39877, L500.73214, L500.23138, L500.39186 ####[facility] VIGFVMWLTC1078 [place], [place] [address]Gh# [phone] Urea nitrogen [Mass/Vol] 16 mg/dL Normal 7-26 [facility] Comment on above: Order Comment: Campu s: M Performed By: #### L 500.39456, L500.08244, L500.97888, L500.77936 ####[facility] GKHIAEXGWD4280 [place], [place] [address]Ra# [phone] CBC W/DIFFon 10-22-2021 BASO ABS 0.10 K/CU MM Normal 0-0.2 [facility] Comment on above: Order Comment: Campu s: M Performed By: #### L 200.17203 ####[address] [address]Oq# [phone] Basophils/100 WBC (Bld) 0.2 % Normal 0-2 [facility] Comment on above: Order Comment: Campu s: M Performed By: #### L 200.78559 ####[facility] [id number] [place], [place] [address]Ph# [phone] EOS ABS 0.00 K/CU MM Normal 0-0.5 [facility] Comment on above: Order Comment: Campu s: M Performed By: #### L 200.75084 ####[facility] [id number] [place] [address]Xx# [phone] Eosinophils/100 WBC (Bld) 0.0 % Normal 0-5 [facility] Comment on above: Order Comment: Campu s: M Performed By: #### L 200.02102 ####[facility] [id number] [place] [address]Bi# [phone] Erythrocyte distribution width (RBC) [Ratio] 13.5 % Normal 11-14.5 [facility] Comment on above: Order Comment: Campu s: M Performed By: #### L 200.97854 ####[facility] [id number] [place] [address]Gn# [phone] Hematocrit (Bld) [Volume fraction] 39.5 % Normal 35.0-47.0 [facility] Comment on above: Order Comment: Campu s: M Performed By: #### L 200.56607 ####[facility] HHPSHFVYOG6657 [place] [address]Ph# [phone] Hemoglobin (Bld) [Mass/Vol] 13.4 g/dL Normal 11.5-15.5 [facility] Comment on above: Order Comment: Campu s: M Performed By: #### L 200.14491 ####[facility] KNVWWVACLT2002[address] [place], [place] [address]Ph# [phone] IMMATR GRAN ABS 0.20 K/CU MM Normal Less than 2 [facility] Comment on above: Order Comment: Campu s: M Performed By: #### L 200.02840 ####[facility] [id number] [place], [place] [address]Ph# [phone] IMMATURE GRAN % 1.0 % Normal Less than 2 [facility] Comment on above: Order Comment: Campu s: M Performed By: #### L 200.52902 ####[facility] OLIVCGWZHY6[address] [place], [place] [address]Ph# [phone] LYMPH ABS 1.30 K/CU MM Normal 0.9-4.4 [facility] Comment on above: Order Comment: Campu s: M Performed By: #### L 200.93532 ####[facility] [id number] [place], [place] [address]Ph# [phone] Lymphocytes/100 WBC (Bld) 5.6 % Low 20-40 [facility] Comment on above: Order Comment: Campu s: M Performed By: #### L 200.39540 ####[facility] [id number] [place], [place] [id number]# [phone] MCHC (RBC) [Mass/Vol] 33.9 g/dL Normal 32.0-36.0 [facility] [place] Comment on above: Order Comment: Campu s: M Performed By: #### L 200.51771 ####[facility] [id number] [place], [place] [address]Zg# [phone] MCV (RBC) [Entitic vol] 84.4 fL Normal 80.0-99.0 [facility] [place] Comment on above: Order Comment: Campu s: M Performed By: #### L 200.41922 ####[address] [address]Rq# [phone] MONO ABS 0.60 K/CU MM Normal 0.1-1.1 [facility] [place] Comment on above: Order Comment: Campu s: M Performed By: #### L 200.26950 ####[place] [id number]# [phone] Monocytes/100 WBC (Bld) 2.6 % Normal 2-10 [facility] Comment [facility] above: Order Comment: Campu s: M Performed By: #### L 200.32393 ####[facility] [id number] [place], [place] [id number]# [phone] NEUTROPHIL ABS 20.70 K/CU MM High 2.0-8.3 [facility] [place] Comment on above: Order Comment: Campu s: M Performed By: #### L 200.48758 ####[facility] [id number] [place] [address]Xs# [phone] Neutrophils/100 WBC (Bld) 90.6 % High 45-75 [facility] [place] Comment on above: Order Comment: Campu s: M Performed By: #### L 200.32310 ####[facility] [id number] [place] [address]Nh# [phone] Nucleated RBC/100 WBC (Bld) [Ratio] 0.0 % Normal Less than 1 [facility] [place] Comment on above: Order Comment: Campu s: M Performed By: #### L 200.48987 ####[facility] [id number] [place] [address]Ed# [phone] Platelet mean volume (Bld) [Entitic vol] 13.2 fL High 9.4-12.4 [facility] [place] Comment on above: Order Comment: Campu s: M Performed By: #### L 200.72901 ####[facility] [facility] [id number] [place], [place] [address]Bq# [phone] PLT 164 K/CU MM Normal 150-450 [facility] Comment on above: Order Comment: Campu s: M Result Comment: Conf irmed by slide estimate. Performed By: #### L 200.84164 ####[facility] [id number] [place], [place] [address]Cy# [phone] PLT EST ADEQUATE Normal [facility] Comment on above: Order Comment: Campu s: M Performed By: #### L 200.80207 ####[facility] [id number] [place] [address]Af# [phone] POIK 1+ Normal [facility] Comment on above: Order Comment: Campu s: M Performed By: #### L 200.19589 ####[facility] [id number] [place] [address]Zj# [phone] POLY 1+ Normal [facility] Comment on above: Order Comment: Campu s: M Performed By: #### L 200.96874 ####[facility] [id number] [place], [place] [address]Ic# [phone] RBC 4.68 M/CU MM Normal 3.90-5.30 [facility] Comment on above: Order Comment: Campu s: M Performed By: #### L 200.37169 ####[facility] [id number] [place], [place] [address]Ra# [phone] WBC 22.9 K/CUMM High 4.5-11.0 [facility] Comment on above: Order Comment: Campu s: M Performed By: #### L 200.68488 ####[facility] [id number] [place], [place] [address]Bt# [phone] Stacie 02-25-2022 EMERGENCY PHYSICIAN REPORT This is a preliminary report only, as the practitioner review and authentication has not occurred. Normal [facility] ER Normal [facility] GFR ESTon 10-22-2021 IF AMER Greater than 60 Normal [facility] Comment on above: Order Comment: Campu s: M Performed By: #### L 500.58888, L500.77823 ####[facility] [id number] [place], [place] [address]Rb# [phone] IF non-AFR AMER Greater than 60 Normal [facility] Comment on above: Order Comment: Campu s: M Performed By: #### L 500.73736, L500.34568 ####[facility] [id number] [place], [place] [address]Mv# [phone] IF AMER Greater than 60 [facility] Comment on above: Order Comment: Campu s: M Performed By: #### L 500.60068, L500.12307, L500.53700, L500.55549 ####[facility] [id number] [place], [place] [address]Gj# [phone] IF non-AFR AMER Greater than 60 Normal [facility] Comment on above: Order Comment: Campu s: M Performed By: #### L 500.05001, L500.23107, L500.18823, L500.99232 ####[facility] URKTYNGYQB0877 [place], [place] [address]Py# [phone] GLUCOSE METERon 10-22-2021 Glucose [Mass/Vol] 145 mg/dL High 70-115 [facility] Glucose [Mass/Vol] 255 mg/dL High 70-115 [facility] Glucose [Mass/Vol] 232 mg/dL High 70-115 [facility] Glucose [Mass/Vol] 269 mg/dL High 70-115 [facility] Glucose [Mass/Vol] 249 mg/dL High 70-115 [facility] HPon 10-22-2021 HP Normal [facility] LIPASEon 02-25-2022 Lipase [Catalytic activity/Vol] 18 U/L Normal 12-60 [facility] Comment on above: Order Comment: Campu s: M Result Comment: NOTE NEW NORMAL RANGE DUE TO REAGENT CHANGE Performed By: #### L 500.02989, L500.34756, L500.41688, L500.14997 ####[facility] QQKBRGQNMO1773 [place], [place] [address]Fc# [phone] LIVERon 10-22-2021 Globulin (S) [Mass/Vol] 2.8 g/dL Normal 2.2-4.2 [facility] Comment on above: Order Comment: Campu s: M Performed By: #### L 500.08532, L500.56859, L500.74910, L500.28023 ####[place] [address] [place], [place] [address]Jf# [phone] Albumin/Globulin [Mass ratio] 1.54 {ratio} Normal 0.8-2.0 [facility] Comment on above: Order Comment: Campu s: M Performed By: #### L 500.46931, L500.96698, L500.02540, L500.42407 ####[facility] [id number] [place], [place] [address]Pz# [phone] Albumin [Mass/Vol] 4.3 g/dL Normal 3.2-5.0 [facility] Comment on above: Order Comment: Campu s: M Performed By: #### L 500.37933, L500.39034, L500.89186, L500.51287 ####[facility] [id number] [place], [place] [address]Uy# [phone] ALK PHOS 100 U/L Normal 45-117 [facility] Comment on above: Order Comment: Campu s: M Performed By: #### L 500.38387, L500.74868, L500.41935, L500.43255 ####[facility] WSUYSLDVGG1396 [place], [place] [address]Md# [phone] ALT [Catalytic activity/Vol] 9 U/L Low 13-61 [facility] Comment on above: Order Comment: Campu s: M Result Comment: RESU LTS MAY BE FALSELY DEPRESSED AFTER THE ADMINISTRATION OFSULFASALAZINE AND/OR SULFAPYRIDINE. Performed By: #### L 500.43113, L500.53957, L500.69371, L500.73961 ####[facility] RZCTREZJYY0259 [place], [place] [address]Mr# [phone] AST [Catalytic activity/Vol] 12 U/L Normal 8-34 [facility] Comment on above: Order Comment: Campu s: M Result Comment: RESU LTS MAY BE FALSELY DEPRESSED AFTER THE ADMINISTRATION OFSULFASALAZINE AND/OR SULFAPYRIDINE. Performed By: #### L 500.07892, L500.21482, L500.40723, L500.94383 ####[facility] FVEFIDCXWN0179 [place], [place] [address]Mv# [phone] BILI DIRECT 0.3 MG/DL Normal 0.00-0.36 [facility] Comment on above: Order Comment: Campu s: M Result Comment: NOTE NEW NORMAL RANGE DUE TO REAGENT CHANGE Performed By: #### L 500.43080, L500.36427, L500.25608, L500.73362 ####[facility] GOMIVQIYBX2706 [place], [place] [address]Yq# [phone] BILI TOTAL 0.80 MG/DL Normal 0.2-1.0 [facility] Comment on above: Order Comment: Campu s: M Performed By: #### L 500.51691, L500.51419, L500.80657, L500.44043 ####[facility] UIDJLRYTRJ7669 [place], [place] [address]Qi# [phone] Protein [Mass/Vol] 7.1 g/dL Normal 6.0-8.5 [facility] Comment on above: Order Comment: Campu s: M Performed By: #### L 500.58007, L500.16179, L500.75107, L500.93485 ####[facility] [id number] [place], [place] [address]Cw# [phone] [id number] 10-22-2021 SARS-CoV-2 (COVID-19) RNA DANIEL+probe Ql (Unsp spec) Negative Invalid Interpretation Code Negative [facility] Comment on above: Order Comment: Campu s: M Result Comment: RESU LTS CALLED TO ALONZO MORALES/EDAT 0106 10/22/21 BY JHOANA PALMERNegative results do not preclude SARS-CoV-2 infection andshould not be used as the sole basis for treatment or otherpatient management decisions. Negative results must becombined with clinical observation, patient history, andepidemiological information.This test was performed by PCR. Performed By: #### L 770.05616 ####[facility] [id number] [place], [place] [address]Ir# [phone] UA COMPLETEon 10-22-2021 UA UROBILINOGEN Negative Normal NORMAL [facility] Comment on above: Order Comment: Campu s: M Performed By: #### L 600.68458 ####[facility] YGSWXUKZVZ2274 [place], [place] [address]Cm# [phone] Color (U) YELLOW Normal [facility] Comment on above: Order Comment: Campu s: M Performed By: #### L 600.21599 ####[facility] GKESUOGHXF1158 [place], [place] [address]Jx# [phone] Glucose (U) [Mass/Vol] mg/dL Normal NORMAL [facility] Comment on above: Order Comment: Campu s: M Performed By: #### L 600.00067 ####[facility] YPJTGKJIVT9660 [place], [place] [address]Fd# [phone] Mucus Ql (Urine sed) TRACE Normal NEGATIVE [facility] Comment on above: Order Comment: Campu s: M Performed By: #### L 600.43745 ####[facility] IYCYBYKVXP7579 [place], [place] [address]Ug# [phone] SQUAMOUS EPIS 2 EPI/HPF Normal 0-5 [facility] Comment on above: Order Comment: Campu s: M Performed By: #### L 600.04761 ####[facility] [id number] [place], [place] [address]Qm# [phone] UA APPEARANCE CLEAR Normal CLEAR [facility] Comment on above: Order Comment: Campu s: M Performed By: #### L 600.44275 ####[facility] [id number] [place] [address]St# [phone] UA BACTERIA NONE Normal NONE [facility] Comment on above: Order Comment: Campu s: M Performed By: #### L 600.20761 ####[facility] [id number] [place] [address]Zk# [phone] UA BILIRUBIN Negative Normal NEGATIVE [facility] Comment on above: Order Comment: Campu s: M Performed By: #### L 600.28519 ####[facility] [id number] [place] [address]Ue# [phone] UA BLOOD SMALL Normal NEGATIVE [facility] Comment on above: Order Comment: Campu s: M Performed By: #### L 600.55545 ####[facility] [id number] [place] [address]Ms# [phone] UA KETONE 80 Normal NEGATIVE [facility] Comment on above: Order Comment: Campu s: M Performed By: #### L 600.69476 ####[facility] [id number] [place] [address]Uu# [phone] UA LK ESTERASE N Normal NEGATIVE [facility] Comment on above: Order Comment: Campu s: M Performed By: #### L 600.38278 ####[facility] [id number] [place] [address]Ob# [phone] UA NITRITE Negative Normal NEGATIVE [facility] Comment on above: Order Comment: Campu s: M Performed By: #### L 600.17186 ####[facility] [id number] [place] [address]Df# [phone] UA PH 6.0 Normal 5-6 [facility] Comment on above: Order Comment: Campu s: M Performed By: #### L 600.85441 ####[facility] GCLIRMPYJK4345 [place], [place] [address]Ui# [phone] UA PROTEIN 30 Normal NEGATIVE [facility] Comment on above: Order Comment: Campu s: M Performed By: #### L 600.26445 ####[facility] [id number] [place] [address]Bv# [phone] UA RBC NONE Low 0-3 [facility] Comment on above: Order Comment: Campu s: M Performed By: #### L 600.01384 ####[facility] [id number] [place] [address]Xf# [phone] UA SPEC GRAV 1.023 Normal 1.005-1.030 [facility] Comment on above: Order Comment: Campu s: M Performed By: #### L 600.61028 ####[facility] [id number] [place] [address]Wh# [phone] UA WBC 1 WBC/HPF Normal 0-5 [facility] Comment on above: Order Comment: Campu s: M Performed By: #### L 600.69350 ####[facility] [id number] [place] [address]Uf# [phone] VBG PHon 10-22-2021 VBG PH 7.49 MMHG High 7.31-7.41 [facility] Comment on above: Order Comment: Campu s: M Performed By: #### L 100.80962 ####[facility] NFWLJQGSUX[address] [place] [address]Ns# [phone] BLOOD CULTUREon 06-09-2021 Bacteria identified Cx Nom (Bld) NO GROWTH AFTER 5 DAYS Normal [facility] Comment on above: Order Comment: Campu s: M Performed By: #### M 050.29615 ####[facility] [id number] [place] [address]Oq# [phone] Bacteria identified Cx Nom (Bld) NO GROWTH AFTER 5 DAYS Normal [facility] Comment on above: Order Comment: Zach s: M Performed By: #### M 050.45273 ####[facility] [id number] [place], [place] [address]Dd# [phone] GLUCOSE METERon 06-07-2021 Glucose [Mass/Vol] 44 mg/dL Critically low 70-115 [facility] BLO[facility] CULTUREon 06-05-2021 Bacteria identified Cx Nom (Bld) NO GROWTH AFTER 5 DAYS Normal [facility] Comment on above: Order Comment: Benjiu s: M Performed By: #### M 050.55133 ####[facility] [id number] [place], [place] [address]Ic# [phone] DISCH.SUMon 06-05-2021 DISCH.SUM Normal [facility] GLUCOSE METERon 06-05-2021 Glucose [Mass/Vol] 104 mg/dL Normal 70-115 [facility] Glucose [Mass/Vol] 83 mg/dL Normal 70-115 [facility] Glucose [Mass/Vol] 105 mg/dL Normal 70-115 [facility] Glucose [Mass/Vol] 177 mg/dL High 70-115 [facility] Glucose [Mass/Vol] 61 mg/dL Low 70-115 [facility] PROG.ENDOon 06-05-2021 PROG.ENDO Normal [facility] Progress Note-Endocrinology Normal [facility] BCID PCRon 06-04-2021 BC ACINETOBACTE Not detected Normal NOT DETECTD [facility] Comment on above: Performed By: #### L 77086903 ####[facility] [id number] [place], [place] [address]Ix# [phone] BC BETA STREP A Not detected Normal NOT DETECTD [facility] Comment on above: Performed By: #### L 77022708 ####[facility] RSEFXMQYRP4107 [place], [place] [address]Tx# [phone] BC BETA STREP B Not detected Normal NOT DETECTD [facility] Comment on above: Performed By: #### L 770. ####[facility] [id number] [place], [place] [address]Gq# [phone] BC C ALBICANS Not detected Normal NOT DETECTD [facility] Comment on above: Performed By: #### L 770. ####[facility] ZUQXGXHSYU2616 [place], [place] [address]Ot# [phone] BC C GLABRATA Not detected Normal NOT DETECTD [facility] Comment on above: Performed By: #### L 770. ####[facility] [id number] [place], [place] [address]Dm# [phone] BC C KRUSEI Not detected Normal NOT DETECTD [facility] Comment on above: Performed By: #### L 770. ####[facility] [id number] [place], [place] [address]Pu# [phone] BC C PARAPSILOS Not detected Normal NOT DETECTD [facility] Comment on above: Performed By: #### L 770. ####[facility] [id number] [place], [place] [address]Fi# [phone] BC C TROPICALIS Not detected Normal NOT DETECTD [facility] Comment on above: Performed By: #### L 770. ####[facility] QXNIEZLOWR0103 [place], [place] [address]Ie# [phone] BC E COLI Not detected Normal NOT DETECTD [facility] Comment on above: Performed By: #### L 770. ####[facility] [id number] [place], [place] [address]Lw# [phone] BC ENTER CLOACA Not detected Normal NOT DETECTD [facility] Comment on above: Performed By: #### L 770. ####[facility] IYLHAWAORO5813 [place], [place] [address]Sq# [phone] BC ENTEROCOCCUS Not detected Normal NOT DETECTD [facility] Comment on above: Performed By: #### L 770.64663 ####[facility] MDBAWGLKYW3371 [place], [place] [address]Fy# [phone] BC H.INFLUENZA Not detected Normal NOT DETECTD [facility] Comment on above: Performed By: #### L 770. ####[facility] [id number] [place], [place] [address]Mn# [phone] BC KLEB OXYTOCA Not detected Normal NOT DETECTD [facility] Comment on above: Performed By: #### L 770. ####[facility] MTREORTQUD3448 [place], [place] [address]Mn# [phone] BC KLEB PNEUMO Not detected Normal NOT DETECTD [facility] Comment on above: Performed By: #### L 770. ####[facility] [id number] [place], [place] [address]Bd# [phone] BC KPC Not detected Normal NOT DETECTD [facility] Comment on above: Performed By: #### L 770. ####[facility] SVSKIWESTE1553 [place], [place] [address]Hs# [phone] BC LISTERIA Not detected Normal NOT DETECTD [facility] Comment on above: Performed By: #### L 770 ####[facility] PBFNKNJKSX7783 [place], [place] [address]Yr# [phone] BC MEC A Not detected Normal NOT DETECTD [facility] Comment on above: Performed By: #### L 770. ####[facility] DEIDTXJSPG8936 [place], [place] [address]Mp# [phone] BC N MENINGITID Not detected Normal NOT DETECTD [facility] Comment on above: Performed By: #### L 770. ####[facility] [id number] [place], [place] [address]Yk# [phone] BC PROTEUS SP. Not detected Normal NOT DETECTD [facility] Comment on above: Performed By: #### L 770. ####[facility] [id number] [place], [place] [address]Sr# [phone] BC PSEUDO AERUG Not detected Normal NOT DETECTD [facility] Comment on above: Performed By: #### L 770.70679 ####[facility] [id number] [place], [place] [address]Do# [phone] BC SERRATIA MAR Not detected Normal NOT DETECTD [facility] Comment on above: Performed By: #### L 770.87146 ####[facility] VIPTWDUZYW2114 [place], [place] [address]Ex# [phone] BC STAPH AUREUS Not detected Normal NOT DETECTD [facility] Comment on above: Performed By: #### L 770.44935 ####[facility] TJFMDBSLGQ5749 [place], [place] [address]Ei# [phone] BC STAPH SPE. Not detected Normal NOT DETECTD [facility] Comment on above: Performed By: #### L 770.05687 ####[facility] [id number] [place] [address]Pr# [phone] BC STREP PNEUMO Not detected Normal NOT DETECTD [facility] Comment on above: Performed By: #### L 770.21771 ####[facility] KJWTKKOXSO7310 [place], [place] [address]Tn# [phone] BC STREPTOCOCCU Not detected Normal NOT DETECTD [facility] Comment on above: Performed By: #### L 770.04572 ####[facility] [id number] [place] [address]Or# [phone] BC VAN A/B Not detected Normal NOT DETECTD [facility] Comment on above: Performed By: #### L 770.69201 ####[facility] [id number] [place], [place] [address]Zy# [phone] ENTEROBACEAE SP Not detected Normal NOT DETECTD [facility] Comment on above: Performed By: #### L 770.85395 ####[facility] [id number] [place] [address]Hk# [phone] BLOOD CULTUREon 06-04-2021 Bacteria identified Cx Nom (Bld) INITIAL POSITIVE BLOOD CULTURE RESULTS CALLED TO MICHELLE RN/8M AND READ BACK BY AT 201206/02/21 BY NANI CARLISLE ORGANISM 1: MICROCOCCUS SP./RELATED GENERA ID TO FOLLOW NOT VIABLE FOR SENSITIVITY Normal [facility] Comment on above: Order Comment: Campu s: M Performed By: #### M 050.83348 ####[facility] LAUVAZMJWI5039 [place], [place] [address]Pn# [phone] GLUCOSE METERon 06-04-2021 Glucose [Mass/Vol] 161 mg/dL High 70-115 [facility] Glucose [Mass/Vol] 79 mg/dL Normal 70-115 [facility] Glucose [Mass/Vol] 236 mg/dL High 70-115 [facility] Glucose [Mass/Vol] 273 mg/dL High 70-115 [facility] Glucose [Mass/Vol] 221 mg/dL High 70-115 [facility] Glucose [Mass/Vol] 305 mg/dL High 70-115 [facility] PROG IMSon 06-04-2021 PROG IMS Normal [facility] Progress Note-Hospitalist Normal [facility] PROG.ENDOon 06-04-2021 PROG.ENDO Normal [facility] Progress Note-Endocrinology Normal [facility] BMPon 06-03-2021 Anion gap [Moles/Vol] 9 mmol/L Normal 5-16 [facility] Comment on above: Order Comment: Campu s: MMinimal Draw: Y Performed By: #### L 500.30841, L500.06209, L500.55815 ####[facility] [id number] [place], [place] [address]Ae# [phone] Calcium [Mass/Vol] 8.5 mg/dL Normal 8.5-10.5 [facility] Comment on above: Order Comment: Campu s: MMinimal Draw: Y Result Comment: NOTE NEW NORMAL RANGE DUE TO REAGENT CHANGE Performed By: #### L 500.51343, L500.48990, L500.04429 ####[facility] KRQRVBVXNC8700 [place], [place] [address]Nh# [phone] Chloride [Moles/Vol] 109 mmol/L High 98-107 [facility] Comment on above: Order Comment: Campu s: MMinimal Draw: Y Performed By: #### L 500.42200, L500.88745, L500.20198 ####[facility] PZWOEHUGCR5376 [place], [place] [address]Jr# [phone] CO2 [Moles/Vol] 23.0 mmol/L Normal 21-32 [facility] Comment on above: Order Comment: Campu s: MMinimal Draw: Y Performed By: #### L 500.82604, L500.43462, L500.01620 ####[facility] KJRTWESRQM4451 [place], [place] [address]Dm# [phone] Creatinine [Mass/Vol] 0.70 mg/dL Normal 0.510-0.950 [facility] Comment on above: Order Comment: Campu s: MMinimal Draw: Y Result Comment: Cleopatra ents receiving either N-Acetylcysteine (NAC) orMetamizole prior to venipuncture, may have falsely depressedresults. Performed By: #### L 500.21026, L500.37200, L500.40680 ####[facility] UTKMEBSKFB3229 [place], [place] [address]Hg# [phone] Glucose [Mass/Vol] 303 mg/dL High 70-100 [facility] Comment on above: Order Comment: Campu s: MMinimal Draw: Y Result Comment: 70-1 00- Normal Fasting; 100-125 Impaired Fasting; greaterthan 126 on more than one result- Diabetes. ADA guidelines.Results may be falsely elevated after the administration ofSulfapyridine.Results may be falsely depressed after the administration ofSulfasalazine. Performed By: #### L 500.37429, L500.17408, L500.93455 ####[facility] [id number] [place], [place] [address]Nf# [phone] Potassium [Moles/Vol] 4.4 mmol/L Normal 3.5-5.1 [facility] Comment on above: Order Comment: Campu s: MMinimal Draw: Y Result Comment: Slig ht Hemolysis, Result may be affected. Performed By: #### L 500.37952, L500.06422, L500.79378 ####[facility] [id number] [place], [place] [address]Gb# [phone] Sodium [Moles/Vol] 141 mmol/L Normal 136-145 [facility] Comment on above: Order Comment: Campu s: MMinimal Draw: Y Performed By: #### L 500.84756, L500.06271, L500.35230 ####[facility] DGAKTNOLXO5642 [place], [place] [address]Ii# [phone] Urea nitrogen [Mass/Vol] 16 mg/dL Normal 7-26 [facility] Comment on above: Order Comment: Campu s: MMinimal Draw: Y Performed By: #### L 500.91048, L500.88010, L500.63876 ####[facility] [id number] [place], [place] [address]Js# [phone] Urea nitrogen/Creatinine [Mass ratio] 23 mg/mg Normal 15-24 [facility] Comment on above: Order Comment: Campu s: MMinimal Draw: Y Performed By: #### L 500.45881, L500.64765, L500.19061 ####[facility] [id number] [place], [place] [address]Ob# [phone] CBC W/DIFFon 06-03-2021 BASO ABS 0.00 K/CU MM Normal 0-0.2 [facility] Comment on above: Order Comment: Campu s: MMinimal Draw: Y Performed By: #### L 200.39296 ####[facility] [id number] [place], [place] [address]Ea# [phone] Basophils/100 WBC (Bld) 0.2 % Normal 0-2 [facility] Comment on above: Order Comment: Campu s: MMinimal Draw: Y Performed By: #### L 200.97932 ####[facility] [id number] [place] [id number]# [phone] EOS ABS 0.00 K/CU MM Normal 0-0.5 [facility] Comment on above: Order Comment: Campu s: MMinimal Draw: Y Performed By: #### L 200.08032 ####[facility] [id number] [place] [address]Tp# [phone] Eosinophils/100 WBC (Bld) 0.3 % Normal 0-5 [facility] Comment on above: Order Comment: Campu s: MMinimal Draw: Y Performed By: #### L 200.80139 ####[address] [address]Go# [phone] Erythrocyte distribution width (RBC) [Ratio] 15.1 % High 11-14.5 [facility] Comment on above: Order Comment: Campu s: MMinimal Draw: Y Performed By: #### L 200.32944 ####[facility] [id number] [place] [address] 43459Br# [phone] Hematocrit (Bld) [Volume fraction] 29.3 % Low 35.0-47.0 [facility] Comment on above: Order Comment: Campu s: MMinimal Draw: Y Performed By: #### L 200.75924 ####[facility] [id number] [place] [address]Yd# [phone] Hemoglobin (Bld) [Mass/Vol] 9.4 g/dL Low 11.5-15.5 [facility] Comment on above: Order Comment: Campu s: MMinimal Draw: Y Result Comment: Repe ated and verified. Performed By: #### L 200.94899 ####[facility] [id number] [place] [address] 19267Zz# [phone] IMMATR GRAN ABS 0.10 K/CU MM Normal Less than 2 [facility] Comment on above: Order Comment: Campu s: MMinimal Draw: Y Performed By: #### L 200.38957 ####[facility] [id number] [place], [place] [address]Ay# [phone] IMMATURE GRAN % 0.8 % Normal Less than 2 [facility] Comment on above: Order Comment: Campu s: MMinimal Draw: Y Performed By: #### L 200.11971 ####[facility] [id number] [place], [place] [address]Ph# [phone] LYMPH ABS 2.90 K/CU MM Normal 0.9-4.4 [facility] Comment on above: Order Comment: Campu s: MMinimal Draw: Y Performed By: #### L 200.99046 ####[address] [address]Wy# [phone] Lymphocytes/100 WBC (Bld) 25.7 % Normal 20-40 [facility] Comment on above: Order Comment: Campu s: MMinimal Draw: Y Performed By: #### L 200.94668 ####[facility] [id number] [place], [place] [address]Ph# [phone] MCHC (RBC) [Mass/Vol] 32.1 g/dL Normal 32.0-36.0 [facility] Comment on above: Order Comment: Campu s: MMinimal Draw: Y Performed By: #### L 200.06586 ####[facility] [id number] [place] [address] 75[address]At# [phone] MCV (RBC) [Entitic vol] 87.5 fL Normal 80.0-99.0 [facility] Comment on above: Order Comment: Campu s: MMinimal Draw: Y Performed By: #### L 200.46231 ####[facility] [id number] [place] [address] 587[address]Rc# [phone] MONO ABS 0.50 K/CU MM Normal 0.1-1.1 [facility] Comment on above: Order Comment: Campu s: MMinimal Draw: Y Performed By: #### L 200.24641 ####[facility] [id number] [place], [place] [address]Rw# [phone] Monocytes/100 WBC (Bld) 4.3 % Normal 2-10 [facility] Comment on above: Order Comment: Campu s: MMinimal Draw: Y Performed By: #### L 200.94517 ####[facility] UONFSBIZTQ[address] [place] [address] 9[address]Vd# [phone] NEUTROPHIL ABS 7.70 K/CU MM Normal 2.0-8.3 [facility] Comment on above: Order Comment: Campu s: MMinimal Draw: Y Performed By: #### L 200.28429 ####[facility] [id number] [place] [address] 05[address]Uy# [phone] Neutrophils/100 WBC (Bld) 68.7 % Normal 45-75 [facility] Comment on above: Order Comment: Campu s: MMinimal Draw: Y Performed By: #### L 200.69041 ####[facility] [id number] [place] [address]Xg# [phone] Nucleated RBC/100 WBC (Bld) [Ratio] 0.0 % Normal Less than 1 [facility] Comment on above: Order Comment: Campu s: MMinimal Draw: Y Performed By: #### L 200.45284 ####[facility] [id number] [place] [address] 210[address]Wz# [phone] Platelet mean volume (Bld) [Entitic vol] 11.6 fL Normal 9.4-12.4 [facility] Comment on above: Order Comment: Campu s: MMinimal Draw: Y Performed By: #### L 200.35061 ####[facility] SEJLCFISIU3406 [place], [place] [address]Wg# [phone] PLT 166 K/CU MM Normal 150-450 [facility] Comment on above: Order Comment: Campu s: MMinimal Draw: Y Performed By: #### L 200.90500 ####[facility] QWRKGMVOMI2021 [place], [place] [address]Xm# [phone] RBC 3.35 M/CU MM Low 3.90-5.30 [facility] Comment on above: Order Comment: Campu s: MMinimal Draw: Y Performed By: #### L 200.06812 ####[facility] [id number] [place], [place] [address]Xw# [phone] WBC 11.3 K/CUMM High 4.5-11.0 [facility] Comment on above: Order Comment: Campu s: MMinimal Draw: Y Performed By: #### L 200.74869 ####[facility] FIHEUXWKON5303 [place], [place] [address]Ks# [phone] GFR ESTon 06-03-2021 IF AMER Greater than 60 Normal [facility] Comment on above: Order Comment: Campu s: MMinimal Draw: Y Performed By: #### L 500.04679, L500.94786, L500.73728 ####[facility] SAXKWWBYDB3049 [place], [place] [address]Ev# [phone] IF non-AFR AMER Greater than 60 Normal [facility] Comment on above: Order Comment: Campu s: MMinimal Draw: Y Performed By: #### L 500.72879, L500.23695, L500.66968 ####[facility] CJYRABOQTG2348 [place], [place] [address]Sc# [phone] GLUCOSE METERon 06-03-2021 Glucose [Mass/Vol] 227 mg/dL High 70-115 [facility] Glucose [Mass/Vol] 182 mg/dL High 70-115 [facility] Glucose [Mass/Vol] 299 mg/dL High 70-115 [facility] PR[facility] IMSon 06-03-2021 PROG IMS Normal [facility]-Hospitalist Normal [facility] PROG.ENDOon 06-03-2021 PROG.ENDO Normal [facility]-Endocrinology Normal [facility] TSHon 06-03-2021 TSH 6.118 UIU/ML High 0.358-3.740 [facility] Comment on above: Order Comment: Campu s: MMinimal Draw: Y Result Comment: 3rd generation ultra sensitive TSH Performed By: #### L 500.15442, L500.27167, L500.55891 ####[facility] XFLSAVBBHS4219 [place], [place] [address]Rd# [phone] CONS.ENDOon 06-02-2021 CONS.ENDO Normal [facility] CONSULTATION-ENDOCRINO LOGY Normal [facility] GLUCOSE METERon 06-02-2021 Glucose [Mass/Vol] 372 mg/dL High 70-115 [facility] Glucose [Mass/Vol] 255 mg/dL High 70-115 [facility] Glucose [Mass/Vol] 210 mg/dL High 70-115 [facility] Glucose [Mass/Vol] 205 mg/dL High 70-115 [facility] PR[facility] IMSon 06-02-2021 PROG IMS Normal [facility] Progress Note-Hospitalist Normal [facility] BMPon 06-01-2021 Anion gap [Moles/Vol] 23 mmol/L High 5-16 [facility] Comment on above: Order Comment: Campu s: M Performed By: #### L 500.52202, L500.70670 ####[facility] DOFFMQLIWQ1350 [place], [place] [address]Gz# [phone] Calcium [Mass/Vol] 9.4 mg/dL Normal 8.5-10.5 [facility] Comment on above: Order Comment: Campu s: M Result Comment: NOTE NEW NORMAL RANGE DUE TO REAGENT CHANGE Performed By: #### L 500.35782, L500.85481 ####[facility] VINYJVITIT1370 [place], [place] [address]Qv# [phone] Chloride [Moles/Vol] 103 mmol/L Normal 98-107 [facility] Comment on above: Order Comment: Campu s: M Performed By: #### L 500.75818, L500.20524 ####[facility] DQEIOEIDYQ2784 [place], [place] [address]Yl# [phone] CO2 [Moles/Vol] 11.0 mmol/L Low 21-32 [facility] Comment on above: Order Comment: Benjiu s: M Result Comment: Delt a check reviewed Performed By: #### L 500.36533, L500.03069 ####[facility] DAJUDVVCXI2280 [place], [place] [address]Ig# [phone] Creatinine [Mass/Vol] 0.71 mg/dL Normal 0.510-0.950 [facility] Comment on above: Order Comment: Benjiu s: M Result Comment: Cleopatra ents receiving either N-Acetylcysteine (NAC) orMetamizole prior to venipuncture, may have falsely depressedresults. Performed By: #### L 500.20837, L5.93113 ####[facility] QHEVDOOSNR9960 [place], [place] [address]Zb# [phone] Glucose [Mass/Vol] 447 mg/dL High 70-100 [facility] Comment on above: Order Comment: Zach s: M Result Comment: 70-1 00- Normal Fasting; 100-125 Impaired Fasting; greaterthan 126 on more than one result- Diabetes. ADA guidelines.Results may be falsely elevated after the administration ofSulfapyridine.Results may be falsely depressed after the administration ofSulfasalazine. Performed By: #### L 500.75548, L5.22946 ####[facility] PVICDUTBGJ6343 [place], [place] [address]Ua# [phone] Potassium [Moles/Vol] 5.2 mmol/L High 3.5-5.1 [facility] Comment on above: Order Comment: Benjiu s: M Result Comment: Slig ht Hemolysis, Result may be affected. Performed By: #### L 500.96999, L500.47041 ####[facility] EALLNGFYLE2171 [place], [place] [address]Tw# [phone] Sodium [Moles/Vol] 137 mmol/L Normal 136-145 [facility] Comment on above: Order Comment: Campu s: M Performed By: #### L 500.16208, L500.92862 ####[facility] VFGNNVCFAD3422 [place], [place] [address]Rt# [phone] Urea nitrogen [Mass/Vol] 20 mg/dL Normal 7-26 [facility] Comment on above: Order Comment: Campu s: M Result Comment: Slig ht Hemolysis, Result may be affected. Performed By: #### L 500.68519, L500.06005 ####[facility] QANRICNDHI8126 [place], [place] [address]Vx# [phone] Urea nitrogen/Creatinine [Mass ratio] 28 mg/mg High 15-24 [facility] Comment on above: Order Comment: Campu s: M Performed By: #### L 500.76435, L500.58252 ####[facility] [id number] [place] [address]Rz# [phone] Stacie 06-01-2021 EMERGENCY PHYSICIAN REPORT This is a preliminary report only, as the practitioner review and authentication has not occurred. Normal [facility] ER Normal [facility] GFR ESTon 06-01-2021 IF AMER Greater than 60 [facility] Comment on above: Order Comment: Campu s: M Performed By: #### L 500.11950, L500.15317 ####[facility] [id number] [place] [address]Hc# [phone] IF non-AFR AMER Greater than 60 [facility] Comment on above: Order Comment: Campu s: M Performed By: #### L 500.97874, L500.08306 ####[facility] DEJBNLYDDK4620 [place], [place] [address]Lp# [phone] GLUCOSE METERon 06-01-2021 Glucose [Mass/Vol] 384 mg/dL High 70-115 [facility] Glucose [Mass/Vol] 322 mg/dL High 70-115 [facility] Glucose [Mass/Vol] 550 mg/dL Critically high 70-115 [facility] GLUCOSE METER > 600 Critically high 70-115 [facility] Glucose [Mass/Vol] 450 mg/dL High 70-115 [facility] HP.IMS.ADMon 06-01-2021 Admission-H&P Normal [facility] HP.[facility].ADM Normal [facility] LACTIC ACIDon 06-01-2021 Lactate [Moles/Vol] 3.82 mmol/L High 0.40-2.00 [facility] Comment on above: Performed By: #### L 550.24421 ####[facility] RTHIGEKMYQ3141 [place], [place] [address]Qt# [phone] PROCAL Aon 06-01-2021 PROCAL A 2.89 NG/ML High 0-0.50 [facility] Comment on above: Order Comment: Zach [...] results obtained fromthe [employer]ell[employer] platform vs the [employer]s Vidas platform(previous).NOTE NEW NORMAL RANGE DUE TO REAGENT CHANGE Performed By: #### L 550.53565 ####[facility] MIBXZCDMPI4834 [place], [place] [address]Ym# [phone] PROG IMSon 06-01-2021 PROG IMS Normal [facility] Progress Note-Hospitalist Normal [facility] UR DRUG ABUSEon 06-01-2021 UR AMPH Negative Normal Ayhcnh=0250 [facility] Comment on above: Performed By: #### L 600.33494 ####[facility] AHOIINUELP3818 [place], [place] [address]Wd# [phone] UR JARON Negative Normal Ghhswe=210 [facility] Comment on above: Performed By: #### L 600.22044 ####[facility] OEOSOQZKOG3624 [place], [place] [address]Is# [phone] UR TAMRA Negative Normal Rgpxou=679 [facility] Comment on above: Performed By: #### L 600.91948 ####[facility] [id number] [place] [address]Fs# [phone] UR MONTY/THC Positive Normal Cutoff=50 [facility] Comment on above: Performed By: #### L 600.05224 ####[address] [address]Ds# [phone] UR ALISHA Negative Normal Kscxih=001 [facility] Comment on above: Performed By: #### L 600.69454 ####[facility] [id number] [place] [address]Hb# [phone] UR OPIAT Positive Normal Tgdafd=060 [facility] Comment on above: Performed By: #### L 600.62509 ####[facility] XKYWWRRHOH[address] [place] [address]Sc# [phone] UR PCP Negative Normal Cutoff=25 [facility] Comment on above: Performed By: #### L 600.37112 ####[facility] [id number] [place] [address]Lx# [phone] DRAB COMMENT Normal [facility] Comment on above: Result Comment: [employer] results are qualitative, providing apreliminary analytical result. A positive result for anassay should be confirmed by another nonimmunological,reference method. A negative result indicates that theassay material is either not present, or present at levelsbelow the cutoff threshold for the analytical method range(AMR) validation. Performed By: #### L 600.37498 ####[facility] ORBSMNCDGC0069 [place], [place] [address]Pl# [phone] ABGPon 05-31-2021 ABG BE -8.6 MML/L Low -2.0-2.0 [facility] Comment on above: Order Comment: Campu s: M Performed By: #### L 100.53848 ####[facility] WEABJITJTZ7383 [place], [place] [address]Nf# [phone] ABG COHBA 0.4 % Normal 0-10 [facility] Comment on above: Order Comment: Campu s: M Performed By: #### L 100.97574 ####[facility] [id number] [place] [address]Jd# [phone] ABG MET 0.3 % Low 0.4-1.5 [facility] Comment on above: Order Comment: Campu s: M Performed By: #### L 100.73065 ####[facility] [id number] [place] [address]Yu# [phone] ABG O2 CAPACITY 17.9 mL/dL Normal [facility] Comment on above: Order Comment: Campu s: M Performed By: #### L 100.43707 ####[facility] MMJJPEZYRV7585 [place], [place] [address]Nz# [phone] ABG O2 CONTENT 17.2 mL/dL Normal 15.7-21.6 [facility] Comment on above: Order Comment: Campu s: M Performed By: #### L 100.11775 ####[facility] VVSYMYKTDS[address] [place] [address]Zr# [phone] ABG O2HB SAT 93.9 % Normal 90-100 [facility] Comment on above: Order Comment: Campu s: M Performed By: #### L 100.12045 ####[facility] [id number] [place] [address]Md# [phone] ABG PCO2 34.2 MMHG Low 35-45 [facility] Comment on above: Order Comment: Campu s: M Performed By: #### L 100.79991 ####[facility] VRXSIWAGUT6683 [place], [place] [address]Hw# [phone] ABG PH 7.31 Low 7.35-7.45 [facility] Comment on above: Order Comment: Campu s: M Performed By: #### L 100.86330 ####[facility] NRTJAAMPLX1603 [place], [place] [address]Cf# [phone] ABG PO2 85.7 MMHG Normal 80-100 [facility] Comment on above: Order Comment: Campu s: M Performed By: #### L 100.73847 ####[address] [address]Cj# [phone] ABG REDUCED HGB 5.4 % High 0-5 [facility] Comment on above: Order Comment: Campu s: M Performed By: #### L 100.58543 ####[facility] [id number] [place] [address]Uz# [phone] GEM TEST Positive Normal [facility] Comment on above: Order Comment: Campu s: M Performed By: #### L 100.02174 ####[address] [address]Gy# [phone] Body temperature 98.6 [degF] Normal [facility] Comment on above: Order Comment: Campu s: M Performed By: #### L 100.75227 ####[facility] UMKWPAMPFX7227 [place], [place] [address]Io# [phone] EQUIPMENT ROOM AIR Normal [facility] Comment on above: Order Comment: Campu s: M Performed By: #### L 100.36745 ####[facility] MXOUIWTGGO7976 [place], [place] [address]Mq# [phone] FIO2 21 % Normal [facility] Comment on above: Order Comment: Campu s: M Performed By: #### L 100.15472 ####[facility] GNDINJEWTP[address] [place] [address] [place] [address]Ul# [phone] HCO3 (Bld) [Moles/Vol] 16.8 mmol/L Low 22-26 [facility] Comment on above: Order Comment: Campu s: M Performed By: #### L 100.56762 ####[facility] GGNVBXSQVA6[address] [place] [address]Cr# [phone] Hemoglobin (Bld) [Mass/Vol] 13.0 g/dL Normal 10-16 [facility] Comment on above: Order Comment: Campu s: M Performed By: #### L 100.97395 ####[address] [address]Fw# [phone] SAMPLE SITE L RADIAL Normal [facility] Comment on above: Order Comment: Campu s: M Performed By: #### L 100.82022 ####[address] [address]Un# [phone] SAMPLE TYPE ARTERIAL Normal [facility] Comment on above: Order Comment: Campu s: M Performed By: #### L 100.17249 ####[facility] PSCMAAYWNO[address] [place] [address]Ww# [phone] ABGPEGLAon 05-31-2021 ABG BE -10.1 MML/L Low -2.0-2.0 [facility] Comment on above: Order Comment: Campu s: M Performed By: #### L 100.15864 ####[facility] [id number] [place] [address]Yd# [phone] ABG COHBA 0.4 % Normal 0-10 [facility] Comment on above: Order Comment: Campu s: M Performed By: #### L 100.66572 ####[facility] [id number] [place] [address]Nx# [phone] ABG GLU 317.0 MG/DL High 60-80 [facility] Comment on above: Order Comment: Campu s: M Performed By: #### L 100.96094 ####[facility] HTKSLEOHKS9647 [place], [place] [address]Dv# [phone] ABG MET 0.3 % Low 0.4-1.5 [facility] Comment on above: Order Comment: Benjiu s: M Performed By: #### L 100.83919 ####[facility] ZQKLUSLYPG9274 [place], [place] [address]Ju# [phone] ABG O2 CAPACITY 15.6 mL/dL Normal [facility] Comment on above: Order Comment: Campu s: M Performed By: #### L 100.27597 ####[address] [address]Ys# [phone] ABG O2 CONTENT 11.1 mL/dL Low 15.7-21.6 [facility] Comment on above: Order Comment: Campu s: M Performed By: #### L 100.99311 ####[facility] XCQATBJJSH[address] [place] [address]Zv# [phone] ABG O2HB SAT 69.7 % Critically low 90-100 [facility] Comment on above: Order Comment: Benjiu s: M Performed By: #### L 100.25264 ####[address] [address]Ik# [phone] ABG PCO2 19.0 MMHG Critically low 35-45 [facility] Comment on above: Order Comment: Campu s: M Result Comment: CRIT ICAL VALUE(S) VERIFIED AND HAND DELIVERED TO AND READBACK BY DR CORTES AT 1829 05/31/21 BY ADAM CHOE Performed By: #### L 100.21670 ####[facility] STQTALOXPI[address] [place] [address]Zm# [phone] ABG PH 7.43 Normal 7.35-7.45 [facility] Comment on above: Order Comment: Campu s: M Performed By: #### L 100.81532 ####[facility] ZIPECWJKYM[address] [place] [address]Nd# [phone] ABG PO2 37.4 MMHG Critically low 80-100 [facility] Comment on above: Order Comment: Campu s: M Performed By: #### L 100.44617 ####[facility] ARCQLBTPKG6710 [place], [place] [address]Wb# [phone] ABG REDUCED HGB 29.6 % Critically high 0-5 [facility] Comment on above: Order Comment: Campu s: M Performed By: #### L 100.83185 ####[facility] GICACJRYUM[address] [place] [address]Ud# [phone] GEM TEST N/A Normal [facility] Comment on above: Order Comment: Campu s: M Performed By: #### L 100.18283 ####[address] [address]Km# [phone] Body temperature 98.6 [degF] Normal [facility] Comment on above: Order Comment: Campu s: M Performed By: #### L 100.78464 ####[facility] [id number] [place] [address]Cd# [phone] EQUIPMENT ROOM AIR Normal [facility] Comment on above: Order Comment: Campu s: M Performed By: #### L 100.74855 ####[facility] HYZWEIWWHC[address] [place] [address]Zo# [phone] HCO3 (Bld) [Moles/Vol] 12.2 mmol/L Low 22-26 [facility] Comment on above: Order Comment: Campu s: M Performed By: #### L 100.06276 ####[facility] KTPCQAYZJH[address] [place] [address]Lb# [phone] Hemoglobin (Bld) [Mass/Vol] 11.3 g/dL Normal 10-16 [facility] Comment on above: Order Comment: Campu s: M Performed By: #### L 100.03324 ####[facility] GZYYFIHDUZ[address] [place] [address]Ww# [phone] IONIZED CA 0.95 MMOL/L Low 1.13-1.32 [facility] Comment on above: Order Comment: Campu s: M Performed By: #### L 100.10358 ####[facility] VKSVNXBERQ4186 [place], [place] [address]Aa# [phone] LACTATE BLOOD 2.01 MMOL/L High 0.40-2.00 [facility] Comment on above: Order Comment: Campu s: M Performed By: #### L 100.24833 ####[facility] BQYPMYPUBB[address] [place] [address]Gy# [phone] Potassium [Moles/Vol] 2.7 mmol/L Critically low 3.5-5.0 [facility] Comment on above: Order Comment: Campu s: M Performed By: #### L 100.88262 ####[facility] [id number] [place], [place] [id number]# [phone] RESP. RATE 30 [facility] Comment on above: Order Comment: Campu s: M Performed By: #### L 100.09910 ####[facility] [id number] [place] [address] 96657Ys# [phone] SAMPLE SITE R BRACHIAL [facility] Comment on above: Order Comment: Campu s: M Performed By: #### L 100.45745 ####[facility] [id number] [place] [address] 79196Fd# [phone] SAMPLE TYPE ARTERIAL Normal [facility] Comment on above: Order Comment: Campu s: M Performed By: #### L 100.77639 ####[facility] [id number] [place] [address] 71968Jb# [phone] Sodium [Moles/Vol] 140 mmol/L Normal 136-148 [facility] Comment on above: Order Comment: Campu s: M Performed By: #### L 100.92677 ####[facility] [id number] [place] [address] 53371Yo# [phone] BMPon 05-31-2021 Anion gap [Moles/Vol] 16 mmol/L Normal 5-16 [facility] Comment on above: Order Comment: Campu s: M Performed By: #### L 500.33441, L500.19910, L500.14265, L500.00749 ####[facility] [id number] [place], [place] [address]Lx# [phone] Calcium [Mass/Vol] 9.9 mg/dL Normal 8.5-10.5 [facility] Comment on above: Order Comment: Campu s: M Result Comment: NOTE NEW NORMAL RANGE DUE TO REAGENT CHANGE Performed By: #### L 500.96500, L500.46213, L500.82610, L500.86827 ####[facility] [id number] [place], [place] [address]Ew# [phone] Chloride [Moles/Vol] 105 mmol/L Normal 98-107 [facility] Comment on above: Order Comment: Campu s: M Performed By: #### L 500.98192, L500.82842, L500.39233, L500.30986 ####[facility] [id number] [place], [place] [address]Cn# [phone] CO2 [Moles/Vol] 16.0 mmol/L Low 21-32 [facility] Comment on above: Order Comment: Campu s: M Performed By: #### L 500.02327, L500.96133, L500.30435, L500.30712 ####[facility] CLSJVDJTZK4859 [place], [place] [address]Sa# [phone] Creatinine [Mass/Vol] 0.63 mg/dL Normal 0.510-0.950 [facility] Comment on above: Order Comment: Campu s: M Result Comment: Cleopatra ents receiving either N-Acetylcysteine (NAC) orMetamizole prior to venipuncture, may have falsely depressedresults. Performed By: #### L 500.63933, L500.85023, L500.96692, L500.94039 ####[facility] [id number] [place], [place] [address]Ek# [phone] Glucose [Mass/Vol] 422 mg/dL High 70-100 [facility] Comment on above: Order Comment: Campu s: M Result Comment: 70-1 00- Normal Fasting; 100-125 Impaired Fasting; greaterthan 126 on more than one result- Diabetes. ADA guidelines.Results may be falsely elevated after the administration ofSulfapyridine.Results may be falsely depressed after the administration ofSulfasalazine. Performed By: #### L 500.57654, L500.57028, L500.07347, L500.47520 ####[facility] [id number] [place], [place] [address]Th# [phone] Potassium [Moles/Vol] 4.4 mmol/L Normal 3.5-5.1 [facility] Comment on above: Order Comment: Campu s: M Result Comment: Slig ht Hemolysis, Result may be affected. Performed By: #### L 500.24403, L500.14332, L500.33666, L500.85596 ####[facility] AVLLHIFBFU1692 [place], [place] [address]Oa# [phone] Sodium [Moles/Vol] 137 mmol/L Normal 136-145 [facility] Comment on above: Order Comment: Campu s: M Performed By: #### L 500.14341, L500.96736, L500.34695, L500.75955 ####[facility] MWFHFMUREL0461 [place], [place] [address]Mb# [phone] Urea nitrogen [Mass/Vol] 17 mg/dL Normal 7-26 [facility] Comment on above: Order Comment: Campu s: M Performed By: #### L 500.43341, L500.77559, L500.80325, L500.09538 ####[facility] RIXAJCLMLZ1984 [place], [place] [address]Om# [phone] Urea nitrogen/Creatinine [Mass ratio] 27 mg/mg High 15-24 [facility] Comment on above: Order Comment: Campu s: M Performed By: #### L 500.54051, L500.30091, L500.66779, L500.94969 ####[facility] QZDNRZJUEY6045 [place], [place] [address]Nl# [phone] CBC W/DIFFon 05-31-2021 BASO ABS 0.00 K/CU MM Normal 0-0.2 [facility] Comment on above: Order Comment: Campu s: M Performed By: #### L 200.84371 ####[facility] [id number] [place], [place] [address]Ph# [phone] Basophils/100 WBC (Bld) 0.2 % Normal 0-2 [facility] Comment on above: Order Comment: Campu s: M Performed By: #### L 200.51829 ####[facility] [id number] [place], [place] [address]Ph# [phone] EOS ABS 0.00 K/CU MM Normal 0-0.5 [facility] Comment on above: Order Comment: Campu s: M Performed By: #### L 200.43987 ####[facility] [id number] [place] [address]Sk# [phone] Eosinophils/100 WBC (Bld) 0.0 % Normal 0-5 [facility] Comment on above: Order Comment: Campu s: M Performed By: #### L 200.13882 ####[facility] [id number] [place], [place] [address]Ph# [phone] Erythrocyte distribution width (RBC) [Ratio] 14.1 % Normal 11-14.5 [facility] Comment on above: Order Comment: Campu s: M Performed By: #### L 200.94617 ####[facility] [id number] [place] [address]Kb# [phone] Hematocrit (Bld) [Volume fraction] 39.5 % Normal 35.0-47.0 [facility] Comment on above: Order Comment: Campu s: M Performed By: #### L 200.21271 ####[facility] RUVCJOUFFY6852 [place] [address]Ph# [phone] Hemoglobin (Bld) [Mass/Vol] 13.1 g/dL Normal 11.5-15.5 [facility] Comment on above: Order Comment: Campu s: M Performed By: #### L 200.67317 ####[facility] CAVOUJRYAW4467[address] [place], [place] [address]Ph# [phone] IMMATR GRAN ABS 0.20 K/CU MM Normal Less than 2 [facility] Comment on above: Order Comment: Campu s: M Performed By: #### L 200.15959 ####[place] [address]Ph# [phone] IMMATURE GRAN % 0.8 % Normal Less than 2 [facility] Comment on above: Order Comment: Campu s: M Performed By: #### L 200.33294 ####[facility] [id number] [place], [place] [address]Ph# [phone] LYMPH ABS 1.10 K/CU MM Normal 0.9-4.4 [facility] Comment on above: Order Comment: Campu s: M Performed By: #### L 200.44271 ####[facility] EBVMEWVWNY[address] [place], [place] [address]Ph# [phone] Lymphocytes/100 WBC (Bld) 4.7 % Low 20-40 [facility] Comment on above: Order Comment: Campu s: M Performed By: #### L 200.36629 ####[facility] DNCUBSTPJC024[address] [place], [place] [address]Ph# [phone] MCHC (RBC) [Mass/Vol] 33.2 g/dL Normal 32.0-36.0 [facility] Comment on above: Order Comment: Campu s: M Performed By: #### L 200.26818 ####[facility] RJDKXYRMJI1772[address] [place], [place] [address]Ph# [phone] MCV (RBC) [Entitic vol] 84.9 fL Normal 80.0-99.0 [facility] Comment on above: Order Comment: Campu s: M Performed By: #### L 200.02827 ####[facility] EFLWGCGFCX9468 [place], [place] [address]Jx# [phone] MONO ABS 0.40 K/CU MM Normal 0.1-1.1 [facility] Comment on above: Order Comment: Campu s: M Performed By: #### L 200.38417 ####[facility] PIDSNNVAGY[address]46[address] [place], [place] [address]Ph# [phone] Monocytes/100 WBC (Bld) 1.8 % Low 2-10 [facility] Comment on above: Order Comment: Campu s: M Performed By: #### L 200.13767 ####[facility] [id number] [place], [place] [address]Ph# [phone] NEUTROPHIL ABS 20.90 K/CU MM High 2.0-8.3 [facility] Comment on above: Order Comment: Campu s: M Performed By: #### L 200.96956 ####[facility] [id number] [place] [address]Ua# [phone] Neutrophils/100 WBC (Bld) 92.5 % High 45-75 [facility] Comment on above: Order Comment: Campu s: M Performed By: #### L 200.90307 ####[facility] BLVUWJTCRT89[address] [place], [place] [address]Ph# [phone] Nucleated RBC/100 WBC (Bld) [Ratio] 0.0 % Normal Less than 1 [facility] Comment on above: Order Comment: Campu s: M Performed By: #### L 200.15878 ####[facility] [id number] [place] [address]Oh# [phone] Platelet mean volume (Bld) [Entitic vol] 12.4 fL Normal 9.4-12.4 [facility] Comment on above: Order Comment: Campu s: M Performed By: #### L 200.42320 ####[facility] TKYYHYPAKL3190 [place], [place] [address]Eu# [phone] PLT 211 K/CU MM Normal 150-450 [facility] Comment on above: Order Comment: Campu s: M Performed By: #### L 200.89952 ####[facility] CYUTUKIAUJ1269 [place], [place] [address]Ft# [phone] RBC 4.65 M/CU MM Normal 3.90-5.30 [facility] Comment on above: Order Comment: Campu s: M Performed By: #### L 200.62422 ####[facility] YFHMZQSNPK6364 [place], [place] [address]Qe# [phone] WBC 22.6 K/CUMM High 4.5-11.0 [facility] Comment on above: Order Comment: Campu s: M Performed By: #### L 200.42757 ####[facility] [id number] [place] [address]Vo# [phone] CT ABD/PEL W IV CONTRAST ONL Yon 05-31-2021 CT ABD/PEL W IV CONTRAST ONLY Normal [facility] GFR ESTon 05-31-2021 IF AMER Greater than 60 Normal [facility] Comment on above: Order Comment: Campu s: M Performed By: #### L 500.74236, L500.39494, L500.53725, L500.49002 ####[facility] YPPKFCWBKE2452 [place], [place] [address]Sh# [phone] IF non-AFR AMER Greater than 60 Normal [facility] Comment on above: Order Comment: Campu s: M Performed By: #### L 500.70558, L500.04342, L500.85777, L500.29170 ####[facility] KTHECSWFFM7646 [place], [place] [address]Xz# [phone] GLUCOSE METERon 05-31-2021 Glucose [Mass/Vol] 405 mg/dL High 70-115 [facility] LACTATE BLOODon 05-31-2021 LACTATE BLOOD 3.32 MMOL/L High 0.40-2.00 [facility] Comment on above: Order Comment: Campu s: M Performed By: #### L 550.08287 ####[facility] BTDVBHTNYW8392 [place], [place] [address]Ym# [phone] LIPASEon 05-31-2021 Lipase [Catalytic activity/Vol] 18 U/L Normal 12-60 [facility] Comment on above: Order Comment: Campu s: M Result Comment: NOTE NEW NORMAL RANGE DUE TO REAGENT CHANGE Performed By: #### L 500.62233, L500.88756, L500.76309, L500.55500 ####[facility] YMNJQRBTUE2813 [place], [place] [address]Gz# [phone] LIVERon 05-31-2021 Albumin [Mass/Vol] 4.3 g/dL Normal 3.2-5.0 [facility] Comment on above: Order Comment: Campu s: M Performed By: #### L 500.25583, L500.52677, L500.17498, L500.25502 ####[facility] XQTJDCTAGI2922 [place], [place] [address]Gf# [phone] Albumin/Globulin [Mass ratio] 1.4 {ratio} Normal 0.8-2.0 [facility] Comment on above: Order Comment: Campu s: M Performed By: #### L 500.05551, L500.34864, L500.40120, L500.64400 ####[facility] WOXFLDDDWT0012 [place], [place] [address]Mz# [phone] ALK PHOS 89 U/L Normal 45-117 [facility] Comment on above: Order Comment: Campu s: M Performed By: #### L 500.50968, L500.61713, L500.69524, L500.38736 ####[facility] XWSSGGNDPK5919 [place], [place] [address]Rw# [phone] ALT [Catalytic activity/Vol] 11 U/L Low 13-61 [facility] Comment on above: Order Comment: Campu s: M Result Comment: RESU LTS MAY BE FALSELY DEPRESSED AFTER THE ADMINISTRATION OFSULFASALAZINE AND/OR SULFAPYRIDINE. Performed By: #### L 500.20651, L500.74595, L500.79707, L500.48687 ####[facility] JZEPNTJIBC3909 [place], [place] [address]Nx# [phone] AST [Catalytic activity/Vol] 16 U/L Normal 8-34 [facility] Comment on above: Order Comment: Campu s: M Result Comment: RESU LTS MAY BE FALSELY DEPRESSED AFTER THE ADMINISTRATION OFSULFASALAZINE AND/OR SULFAPYRIDINE. Performed By: #### L 500.06594, L500.11834, L500.54303, L500.45635 ####[facility] [id number] [place] [address]Gl# [phone] BILI DIRECT 0.3 MG/DL Normal 0.00-0.36 [facility] Comment on above: Order Comment: Campu s: M Result Comment: NOTE NEW NORMAL RANGE DUE TO REAGENT CHANGE Performed By: #### L 500.74661, L500.82456, L500.13219, L500.12494 ####[facility] RFPYKWLHCM0847 [place], [place] [address]Wc# [phone] BILI TOTAL 1.00 MG/DL Normal 0.2-1.0 [facility] Comment on above: Order Comment: Campu s: M Performed By: #### L 500.15704, L500.73713, L500.53273, L500.64729 ####[facility] RPWFNHHZPO7420 [place], [place] [address]Sq# [phone] Globulin (S) [Mass/Vol] 3.0 g/dL Normal 2.2-4.2 [facility] Comment on above: Order Comment: Campu s: M Performed By: #### L 500.63869, L500.19417, L500.09791, L500.60025 ####[facility] FCMNZMBTKF5877 [place], [place] [address]Yd# [phone] Protein [Mass/Vol] 7.3 g/dL Normal 6.0-8.5 [facility] Comment on above: Order Comment: Campu s: M Performed By: #### L 500.62763, L500.02721, L500.37006, L500.40658 ####[facility] WTDJUBGJCY4742 [place], [place] [address]Ya# [phone] PORTABLE CHESTon 05-31-2021 PORTABLE CHEST Normal [facility] [id number] 05-31-2021 SARS-CoV-2 (COVID-19) RNA DANIEL+probe Ql (Unsp spec) Negative Invalid Interpretation Code Negative [facility] Comment on above: Order Comment: Campu s: M Result Comment: RESU LTS CALLED TO ALONZO ROSALES/EDAT 205305/31/21 BY JHOANA PALMERNegative results do not preclude SARS-CoV-2 infection andshould not be used as the sole basis for treatment or otherpatient management decisions. Negative results must becombined with clinical observation, patient history, andepidemiological information.This test was performed by PCR. Performed By: #### L 770.67623 ####[facility] AURLKHKQKG6611 [place], [place] [address]Fi# [phone] UA COMPLETEon 05-31-2021 Color (U) Straw Normal [facility] Comment on above: Order Comment: Campu s: M Performed By: #### L 600.15630 ####[facility] WLAYUXYJXJ7139 [place], [place] [address]Cb# [phone] Glucose (U) [Mass/Vol] 500 mg/dL Normal NORMAL [facility] Comment on above: Order Comment: Campu s: M Performed By: #### L 600.67835 ####[facility] YIAYBZNTZR0490 [place], [place] [address]Rs# [phone] UA APPEARANCE Clear Normal CLEAR [facility] Comment on above: Order Comment: Campu s: M Performed By: #### L 600.81988 ####[facility] QKRICRSDLG7600 [place], [place] [address]Jh# [phone] UA BILIRUBIN Negative Normal NEGATIVE [facility] Comment on above: Order Comment: Campu s: M Performed By: #### L 600.09535 ####[facility] GCHRNUSHAP1793 [place], [place] [address]Oi# [phone] UA BLOOD Negative Normal NEGATIVE [facility] Comment on above: Order Comment: Campu s: M Performed By: #### L 600.13349 ####[facility] HZJMYPBGUM[address] [place] [address]Gf# [phone] UA KETONE 80 Normal NEGATIVE [facility] Comment on above: Order Comment: Campu s: M Performed By: #### L 600.17425 ####[facility] [id number] [place] [address]La# [phone] UA LK ESTERASE Negative Normal NEGATIVE [facility] Comment on above: Order Comment: Campu s: M Performed By: #### L 600.42268 ####[facility] [id number] [place] [address]Ii# [phone] UA NITRITE Negative Normal NEGATIVE [facility] Comment on above: Order Comment: Campu s: M Performed By: #### L 600.48991 ####[facility] [id number] [place] [address]Vz# [phone] UA PH 6.0 Normal 5-6 [facility] Comment on above: Order Comment: Campu s: M Performed By: #### L 600.10742 ####[facility] YYFAIWONHE[address] [place] [address]Lj# [phone] UA PROTEIN Negative Normal NEGATIVE [facility] Comment on above: Order Comment: Campu s: M Performed By: #### L 600.86306 ####[facility] [id number] [place] [address]Tz# [phone] UA SPEC GRAV 1.030 Normal 1.005-1.030 [facility] Comment on above: Order Comment: Campu s: M Performed By: #### L 600.00480 ####[facility] XWVETFFCPL7838 [place], [place] [address]Du# [phone] UA UROBILINOGEN Negative Normal NORMAL [facility] Comment on above: Order Comment: Campu s: M Performed By: #### L 600.33578 ####[facility] [id number] [place] [address]Tt# [phone] BMPon 04-15-2021 Anion gap [Moles/Vol] 14 mmol/L Normal 5-16 [facility] Comment on above: Order Comment: Campu s: M Performed By: #### L 500.92074, L500.06935, L500.76655, L500.84088 ####[facility] SRSSCYJQWZ9320 [place], [place] [address]Am# [phone] Calcium [Mass/Vol] 9.9 mg/dL Normal 8.5-10.5 [facility] Comment on above: Order Comment: Campu s: M Result Comment: NOTE NEW NORMAL RANGE DUE TO REAGENT CHANGE Performed By: #### L 500.15320, L500.09965, L500.48309, L500.76406 ####[facility] CHSAKLWZYF4080 [place], [place] [address]Yg# [phone] Chloride [Moles/Vol] 96 mmol/L Low 98-107 [facility] Comment on above: Order Comment: Campu s: M Performed By: #### L 500.03997, L500.13912, L500.02357, L500.11082 ####[facility] BTCAUIOITG3219 [place], [place] [address]Gp# [phone] CO2 [Moles/Vol] 22.0 mmol/L Normal - [facility] Comment on above: Order Comment: Campu s: M Performed By: #### L 500.48311, L500.44023, L500.92612, L500.24660 ####[facility] GDVTYCZIOG0892 [place], [place] [address]Uc# [phone] Creatinine [Mass/Vol] 0.68 mg/dL Normal 0.510-0.950 [facility] Comment on above: Order Comment: Zach s: M Result Comment: Cleopatra ents receiving either N-Acetylcysteine (NAC) orMetamizole prior to venipuncture, may have falsely depressedresults. Performed By: #### L 500.21294, L500.48976, L500.38884, L500.72910 ####[facility] QTCFETWZZZ8505 [place], [place] [address]Lo# [phone] Glucose [Mass/Vol] 306 mg/dL High 70-100 [facility] Comment on above: Order Comment: Zach s: M Result Comment: 70-1 00- Normal Fasting; 100-125 Impaired Fasting; greaterthan 126 on more than one result- Diabetes. ADA guidelines.Results may be falsely elevated after the administration ofSulfapyridine.Results may be falsely depressed after the administration ofSulfasalazine. Performed By: #### L 500.85293, L500.35238, L500.42416, L500.13537 ####[facility] DJHJTVSSYQ4593 [place], [place] [address]Al# [phone] Potassium [Moles/Vol] 3.3 mmol/L Low 3.5-5.1 [facility] Comment on above: Order Comment: Zach s: M Performed By: #### L 500.06025, L500.06711, L500.66940, L500.05615 ####[facility] GZZEYVGFNJ3164 [place], [place] [address]Wd# [phone] Sodium [Moles/Vol] 133 mmol/L Low 136-145 [facility] Comment on above: Order Comment: Zach s: M Performed By: #### L 500.55642, L500.98554, L500.91271, L500.58051 ####[facility] KRCDNZOHXT9947 [place], [place] [address]Nb# [phone] Urea nitrogen [Mass/Vol] 21 mg/dL Normal 7-26 [facility] Comment on above: Order Comment: Campu s: M Performed By: #### L 500.34540, L500.45846, L500.34331, L500.04302 ####[facility] [id number] [place], [place] [address]Iy# [phone] Urea nitrogen/Creatinine [Mass ratio] 31 mg/mg High 15-24 [facility] Comment on above: Order Comment: Campu s: M Performed By: #### L 500.75747, L500.07209, L500.23843, L500.78662 ####[facility] SCEDPOAAYT6215 [place], [place] [address]Tg# [phone] Stacie 04-15-2021 EMERGENCY PHYSICIAN REPORT This is a preliminary report only, as the practitioner review and authentication has not occurred. [facility] EMERGENCY PHYSICIAN REPORT This is a preliminary report only, as the practitioner review and authentication has not occurred. [facility] GFR ESTon 04-15-2021 IF AMER Greater than 60 [facility] Comment on above: Order Comment: Campu s: M Performed By: #### L 500.54751, L500.80595, L500.16754, L500.51856 ####[facility] PDCGXIUNUO2297 [place], [place] [address]Sz# [phone] IF non-AFR AMER Greater than 60 [facility] Comment on above: Order Comment: Campu s: M Performed By: #### L 500.41136, L500.12385, L500.08509, L500.34341 ####[facility] MBDFWHPSWY2864 [place], [place] [address]Vo# [phone] GLUCOSE METERon 04-15-2021 Glucose [Mass/Vol] 305 mg/dL High 70-115 [facility] Glucose [Mass/Vol] 197 mg/dL High 70-115 [facility] LACTATE BLOODon 04-15-2021 LACTATE BLOOD 2.16 MMOL/L High 0.40-2.00 [facility] Comment on above: Order Comment: Campu s: M Performed By: #### L 550.59678 ####[facility] WTAKYHQOYH5753 [place], [place] [address]Sz# [phone] LIPASEon 04-15-2021 Lipase [Catalytic activity/Vol] 19 U/L Normal 12-60 [facility] Comment on above: Order Comment: Campu s: M Result Comment: NOTE NEW NORMAL RANGE DUE TO REAGENT CHANGE Performed By: #### L 500.30328, L500.90870, L500.60556, L500.41963 ####[facility] YGCFXSCBKB0987 [place], [place] [address]Kt# [phone] LIVERon 04-15-2021 Albumin [Mass/Vol] 4.2 g/dL Normal 3.2-5.0 [facility] Comment on above: Order Comment: Campu s: M Performed By: #### L 500.26193, L500.07447, L500.53148, L500.64310 ####[facility] UOXNPODPWX7398 [place], [place] [address]Hc# [phone] Albumin/Globulin [Mass ratio] 1.3 {ratio} Normal 0.8-2.0 [facility] Comment on above: Order Comment: Campu s: M Performed By: #### L 500.76766, L500.44271, L500.62250, L500.04948 ####[facility] WNTFHDHFEN3943 [place], [place] [address]Uf# [phone] ALK PHOS 102 U/L Normal 45-117 [facility] Comment on above: Order Comment: Campu s: M Performed By: #### L 500.49938, L500.35906, L500.49676, L500.41047 ####[facility] TLNISTTXSM6332 [place], [place] [address]Wt# [phone] ALT [Catalytic activity/Vol] 11 U/L Low 13-61 [facility] Comment on above: Order Comment: Campu s: M Result Comment: RESU LTS MAY BE FALSELY DEPRESSED AFTER THE ADMINISTRATION OFSULFASALAZINE AND/OR SULFAPYRIDINE. Performed By: #### L 500.35957, L500.68469, L500.03777, L500.25964 ####[facility] LSNJRUYCUX7110 [place], [place] [address]Hz# [phone] AST [Catalytic activity/Vol] 13 U/L Normal 8-34 [facility] Comment on above: Order Comment: Campu s: M Result Comment: RESU LTS MAY BE FALSELY DEPRESSED AFTER THE ADMINISTRATION OFSULFASALAZINE AND/OR SULFAPYRIDINE. Performed By: #### L 500.32686, L500.20247, L500.35319, L500.18359 ####[facility] [id number] [place], [place] [address]Vz# [phone] BILI DIRECT 0.3 MG/DL Normal 0.00-0.36 [facility] Comment on above: Order Comment: Campu s: M Result Comment: NOTE NEW NORMAL RANGE DUE TO REAGENT CHANGE Performed By: #### L 500.23987, L500.50325, L500.61800, L500.84108 ####[facility] [id number] [place], [place] [address]Ep# [phone] BILI TOTAL 1.10 MG/DL High 0.2-1.0 [facility] Comment on above: Order Comment: Campu s: M Performed By: #### L 500.56346, L500.68599, L500.33857, L500.94821 ####[facility] [id number] [place], [place] [address]Du# [phone] Globulin (S) [Mass/Vol] 3.3 g/dL Normal 2.2-4.2 [facility] Comment on above: Order Comment: Campu s: M Performed By: #### L 500.56296, L500.76228, L500.98711, L500.50783 ####[facility] [id number] [place], [place] [address]Ot# [phone] Protein [Mass/Vol] 7.5 g/dL Normal 6.0-8.5 [facility] Comment on above: Order Comment: Campu s: M Performed By: #### L 500.59062, L500.63108, L500.99979, L500.67311 ####[facility] [id number] [place], [place] [address]Wy# [phone] UA COMPLETEon 04-15-2021 Color (U) Yellow [facility] Comment on above: Order Comment: Campu s: M Performed By: #### L 600.44244 ####[address] [address]Mm# [phone] Glucose (U) [Mass/Vol] 500 mg/dL Normal NORMAL [facility] [place] Comment on above: Order Comment: Campu s: M Performed By: #### L 600.73425 ####[facility] [id number] [place] [address]My# [phone] Mucus Ql (Urine sed) TRACE Normal NEGATIVE [facility] Comment [facility] above: Order Comment: Campu s: M Performed By: #### L 600.24205 ####[facility] [id number] [place], [place] [address]Fg# [phone] SQUAMOUS EPIS 2 EPI/HPF Normal 0-5 [facility] Comment on above: Order Comment: Campu s: M Performed By: #### L 600.75792 ####[facility] [id number] [place] [address]Fh# [phone] UA APPEARANCE Clear Normal CLEAR [facility] Comment on above: Order Comment: Campu s: M Performed By: #### L 600.15342 ####[facility] [id number] [place], [place] [address]Aj# [phone] UA BACTERIA TRACE Normal NONE [facility] Comment on above: Order Comment: Campu s: M Performed By: #### L 600.38105 ####[facility] [id number] [place], [place] [address]Td# [phone] UA BILIRUBIN Negative Normal NEGATIVE [facility] Comment on above: Order Comment: Campu s: M Performed By: #### L 600.37731 ####[facility] [id number] [place], [place] [address]Cd# [phone] UA BLOOD Negative Normal NEGATIVE [facility] Comment on above: Order Comment: Campu s: M Performed By: #### L 600.21764 ####[facility] [id number] [place] [address] 14[address]Kb# [phone] UA KETONE 80 Normal NEGATIVE [facility] Comment on above: Order Comment: Campu s: M Performed By: #### L 600.67964 ####[facility] [id number] [place] [address] 30[address]Px# [phone] UA LK ESTERASE Negative Normal NEGATIVE [facility] Comment on above: Order Comment: Campu s: M Performed By: #### L 600.40416 ####[facility] [id number] [place] [address]Kr# [phone] UA NITRITE Negative Normal NEGATIVE [facility] Comment on above: Order Comment: Campu s: M Performed By: #### L 600.18127 ####[facility] [id number] [place] [address]Ar# [phone] UA PH 6.0 Normal 5-6 [facility] Comment on above: Order Comment: Campu s: M Performed By: #### L 600.47480 ####[facility] [id number] [place] [address] 0[address]Qz# [phone] UA PROTEIN 30 Normal NEGATIVE [facility] Comment on above: Order Comment: Campu s: M Performed By: #### L 600.69127 ####[facility] [id number] [place] [address] 90[address]Sp# [phone] UA RBC 1 RBC/HPF Normal 0-3 [facility] Comment on above: Order Comment: Campu s: M Performed By: #### L 600.94302 ####[facility] [id number] [place], [place] [address]Fq# [phone] UA SPEC GRAV 1.017 Normal 1.005-1.030 [facility] Comment on above: Order Comment: Campu s: M Performed By: #### L 600.20252 ####[facility] [id number] [place], [place] [address]Hu# [phone] UA UROBILINOGEN Negative Normal NORMAL [facility] Comment on above: Order Comment: Campu s: M Performed By: #### L 600.41927 ####[facility] [id number] [place] [address]Ba# [phone] UA WBC 6 WBC/HPF High 0-5 [facility] Comment on above: Order Comment: Campu s: M Performed By: #### L 600.16172 ####[facility] [id number] [place] [address] 49[address]Ql# [phone] BMPon 03-17-2021 Anion gap [Moles/Vol] 16 mmol/L Normal 5-16 [facility] Comment on above: Order Comment: Campu s: M Performed By: #### L 500.32529, L500.17984 ####[facility] [id number] [place], [place] [address]No# [phone] Calcium [Mass/Vol] 10.0 mg/dL Normal 8.5-10.5 [facility] Comment on above: Order Comment: Campu s: M Result Comment: NOTE NEW NORMAL RANGE DUE TO REAGENT CHANGE Performed By: #### L 500.79552, L500.07426 ####[facility] [id number] [place], [place] [address]Kd# [phone] Chloride [Moles/Vol] 102 mmol/L Normal 98-107 [facility] Comment on above: Order Comment: Campu s: M Performed By: #### L 500.10375, L500.65694 ####[facility] [id number] [place] [address] 00[address]Sz# [phone] CO2 [Moles/Vol] 16.0 mmol/L Low 21-32 [facility] Comment on above: Order Comment: Benjiu s: M Performed By: #### L 500.51686, L500.41532 ####[facility] [id number] [place], [place] [address]Gx# [phone] Creatinine [Mass/Vol] 0.71 mg/dL Normal 0.510-0.950 [facility] Comment on above: Order Comment: Campu s: M Result Comment: Cleopatra ents receiving either N-Acetylcysteine (NAC) orMetamizole prior to venipuncture, may have falsely depressedresults. Performed By: #### L 500.80418, L500.48577 ####[place] [address] [place], [place] [address]Mv# [phone] Glucose [Mass/Vol] 418 mg/dL High 70-100 [facility] Comment on above: Order Comment: Campu s: M Result Comment: 70-1 00- Normal Fasting; 100-125 Impaired Fasting; greaterthan 126 on more than one result- Diabetes. ADA guidelines.Results may be falsely elevated after the administration ofSulfapyridine.Results may be falsely depressed after the administration ofSulfasalazine. Performed By: #### L 500.85724, L500.78169 ####[facility] [id number] [place], [place] [address]Fb# [phone] Potassium [Moles/Vol] 4.2 mmol/L Normal 3.5-5.1 [facility] Comment on above: Order Comment: Campu s: M Result Comment: Slig ht Hemolysis, Result may be affected. Performed By: #### L 500.95983, L500.58616 ####[facility] [id number] [place], [place] [address]Xf# [phone] Sodium [Moles/Vol] 134 mmol/L Low 136-145 [facility] Comment on above: Order Comment: Benjiu s: M Performed By: #### L 500.98452, L500.22305 ####[facility] [id number] [place], [place] [address]Mx# [phone] Urea nitrogen [Mass/Vol] 25 mg/dL Normal 7-26 [facility] Comment on above: Order Comment: Campu s: M Performed By: #### L 500.65409, L500.55794 ####[facility] [id number] [place] [address]Qo# [phone] Urea nitrogen/Creatinine [Mass ratio] 35 mg/mg High 15-24 [facility] Comment on above: Order Comment: Campu s: M Performed By: #### L 500.02992, L500.15617 ####[address] [address]Wy# [phone] CBC W/DIFFon 03-17-2021 BASO ABS 0.00 K/CU MM Normal 0-0.2 [facility] Comment on above: Order Comment: Campu s: M Performed By: #### L 200.02261 ####[facility] [id number] [place] [address]Rg# [phone] Basophils/100 WBC (Bld) 0.1 % Normal 0-2 [facility] Comment on above: Order Comment: Campu s: M Performed By: #### L 200.73264 ####[facility] [id number] [place] [address]Wf# [phone] EOS ABS 0.00 K/CU MM Normal 0-0.5 [facility] Comment on above: Order Comment: Campu s: M Performed By: #### L 200.23585 ####[facility] [id number] [place] [address] 614[address]Rj# [phone] Eosinophils/100 WBC (Bld) 0.0 % Normal 0-5 [facility] Comment on above: Order Comment: Campu s: M Performed By: #### L 200.47568 ####[facility] [id number] [place] [address]Wr# [phone] Erythrocyte distribution width (RBC) [Ratio] 14.6 % High 11-14.5 [facility] Comment on above: Order Comment: Campu s: M Performed By: #### L 200.04833 ####[facility] [id number] [place], [place] [address]Rs# [phone] Hematocrit (Bld) [Volume fraction] 37.2 % Normal 35.0-47.0 [facility] Comment on above: Order Comment: Campu s: M Performed By: #### L 200.45501 ####[facility] [id number] [place] [address] 319[address]Sw# [phone] Hemoglobin (Bld) [Mass/Vol] 12.4 g/dL Normal 11.5-15.5 [facility] Comment on above: Order Comment: Campu s: M Performed By: #### L 200.18982 ####[facility] [id number] [place], [place] [address]Ph# [phone] IMMATR GRAN ABS 0.10 K/CU MM Normal Less than 2 [facility] Comment on above: Order Comment: Campu s: M Performed By: #### L 200.72922 ####[facility] [id number] [place] [address]Ic# [phone] IMMATURE GRAN % 0.8 % Normal Less than 2 [facility] Comment on above: Order Comment: Campu s: M Performed By: #### L 200.18498 ####[facility] [id number] [place] [address]Ww# [phone] LYMPH ABS 0.80 K/CU MM Low 0.9-4.4 [facility] Comment on above: Order Comment: Campu s: M Performed By: #### L 200.92866 ####[facility] [id number] [place] [address]Ga# [phone] Lymphocytes/100 WBC (Bld) 4.5 % Low 20-40 [facility] Comment on above: Order Comment: Campu s: M Performed By: #### L 200.73612 ####[facility] [id number] [place], [place] [address]Cr# [phone] MCHC (RBC) [Mass/Vol] 33.3 g/dL Normal 32.0-36.0 [facility] Comment on above: Order Comment: Campu s: M Performed By: #### L 200.19962 ####[facility] [id number] [place] [address]Sx# [phone] MCV (RBC) [Entitic vol] 83.2 fL Normal 80.0-99.0 [facility] Comment on above: Order Comment: Campu s: M Performed By: #### L 200.06868 ####[address] [address]Sg# [phone] MONO ABS 0.30 K/CU MM Normal 0.1-1.1 [facility] Comment on above: Order Comment: Campu s: M Performed By: #### L 200.14832 ####[facility] [id number] [place] [address] 10[address]Ir# [phone] Monocytes/100 WBC (Bld) 1.7 % Low 2-10 [facility] Comment on above: Order Comment: Campu s: M Performed By: #### L 200.53945 ####[facility] [id number] [place] [address] 680[address]Mn# [phone] NEUTROPHIL ABS 16.70 K/CU MM High 2.0-8.3 [facility] Comment on above: Order Comment: Campu s: M Performed By: #### L 200.25080 ####[facility] [id number] [place] [address] 44[address]Rr# [phone] Neutrophils/100 WBC (Bld) 92.9 % High 45-75 [facility] Comment on above: Order Comment: Campu s: M Performed By: #### L 200.90664 ####[facility] [id number] [place], [place] [address]Ph# [phone] Nucleated RBC/100 WBC (Bld) [Ratio] 0.0 % Normal Less than 1 [facility] Comment on above: Order Comment: Campu s: M Performed By: #### L 200.05893 ####[facility] [id number] [place], [place] [address]Jk# [phone] Platelet mean volume (Bld) [Entitic vol] 12.9 fL High 9.4-12.4 [facility] Comment on above: Order Comment: Campu s: M Performed By: #### L 200.30260 ####[facility] [id number] [place], [place] [address]Lq# [phone] PLT 181 K/CU MM Normal 150-450 [facility] Comment on above: Order Comment: Campu s: M Performed By: #### L 200.94100 ####[facility] [id number] [place] [address] 184[address]Wl# [phone] RBC 4.47 M/CU MM Normal 3.90-5.30 [facility] Comment on above: Order Comment: Campu s: M Performed By: #### L 200.58709 ####[facility] [id number] [place], [place] [address]Dd# [phone] WBC 17.9 K/CUMM High 4.5-11.0 [facility] Comment on above: Order Comment: Campu s: M Performed By: #### L 200.02136 ####[facility] [id number] [place] [address] 604[address]Db# [phone] Stacie 03-17-2021 EMERGENCY PHYSICIAN REPORT This is a preliminary report only, as the practitioner review and authentication has not occurred. Normal [facility] EMERGENCY PHYSICIAN REPORT This is a preliminary report only, as the practitioner review and authentication has not occurred. Normal [facility]-17-2021 IF AMER Greater than 60 [facility] Comment on above: Order Comment: Campu s: M Performed By: #### L 500.69747, L500.91471 ####[facility] [id number] [place], [place] [address]Ee# [phone] IF non-AFR AMER Greater than 60 Normal [facility] Comment on above: Order Comment: Campu s: M Performed By: #### L 500.20501, L500.09242 ####[facility] [id number] [place], [place] [address]Dp# [phone] GLUCOSE METERon 03-17-2021 Glucose [Mass/Vol] 333 mg/dL High 70-115 [facility] Glucose [Mass/Vol] 360 mg/dL High 70-115 [facility] VBG PHon 03-17-2021 VBG PH 7.40 MMHG Normal 7.31-7.41 [facility] Comment on above: Order Comment: Benjiu s: M Performed By: #### L 100.90004 ####[facility] [id number] [place], [place] [address]Ox# [phone] A1C Hgbon 02-24-2017 Hemoglobin A1c/Hemoglobin.total mass fraction (Bld) 10.8 % High 4.0-6.0 [facility] Comment on above: Performed By: #### G FR ####[address] [address] Basic Metabolic Panelon 01-28 BUN/Creatinine Ratio 21.4 mg/mg Normal 10.0-22.0 [facility] Comment on above: Order Comment: CBN Performed By: #### G FR ####[place] [id number] [place] [address] Creatinine 0.56 mg/dL Normal 0.50-1.20 [facility] Comment on above: Order Comment: CBN Performed By: #### G FR ####[address] [address] Calcium 7.8 mg/dL Low 8.4-10.1 [facility] Comment on above: Order Comment: CBN Performed By: #### G FR ####[facility], [address] [place] [address] Chloride 107 mmol/L Normal 98-110 [facility] Comment on above: Order Comment: CBN Performed By: #### G FR ####[facility], [address] [place] [address] Electrolyte Balance 10.0 mEq/L Normal 4.0-15.0 [facility] Comment on above: Order Comment: CBN Performed By: #### G FR ####[facility], [address] [place] [address] Sodium 138 mmol/L Normal 136-145 [facility] Comment on above: Order Comment: CBN Performed By: #### G FR ####[facility], [address] [place] [address] 51496 Glucose mass conc 289 mg/dL High 70-110 [facility] Comment on above: Order Comment: CBN Performed By: #### G FR ####[facility], [address] [place] [address] 40567 CO2 21 mmol/L Low 22-32 [facility] Comment on above: Order Comment: CBN Performed By: #### G FR ####[facility], [address] [place] [address] Urea nitrogen 12.0 mg/dL Normal 8.0-22.0 [facility] Comment on above: Order Comment: CBN Performed By: #### G FR ####[facility], [address] [place] [address] 005[address] Potassium molar conc 3.7 mmol/L Normal 3.5-5.0 [facility] Comment on above: Order Comment: CBN Performed By: #### G FR ####[facility], [facility] [address] [place] [address] CBCon 02-24-2017 Basophils/100 WBC Auto (Bld) 0.4 % Normal 0.0-2.5 [facility] Comment on above: Order Comment: CBN Performed By: #### G FR ####[facility], [address] [place] [address] Eosinophils/100 leukocytes 1.5 % Normal 0.0-6.0 [facility] Comment on above: Order Comment: CBN Performed By: #### G FR ####[facility], [address] [place] [address] Erythrocyte distribution width Auto Ratio (RBC) 15.1 % Normal 11.5-15.5 [facility] Comment on above: Order Comment: CBN Performed By: #### G FR ####[facility], [address] [place] [address] Erythrocytes (RBC) 4.19 10 6/mcL Normal 4.10-5.30 [facility] Comment on above: Order Comment: CBN Performed By: #### G FR ####[address] [address] Hematocrit (HCT) 35.9 % Normal 34.0-46.0 [facility] Comment on above: Order Comment: CBN Performed By: #### G FR ####[place] [id number] Hemoglobin mass conc (Bld) 11.9 G/dL Low 12.0-16.0 [facility] Comment on above: Order Comment: CBN Performed By: #### G FR ####[facility], [address] [place] [address] 400[address] Lymphocytes/100 leukocytes 36.7 % Normal 20.0-40.0 [facility] Comment on above: Order Comment: CBN Performed By: #### G FR ####[address] [address] MCH 28.5 pg Normal 27.0-33.0 [facility] Comment on above: Order Comment: CBN Performed By: #### G FR ####[address] [address] MCHC mass conc (RBC) 33.2 G/dL Normal 32.0-36.0 [facility] Comment on above: Order Comment: CBN Performed By: #### G FR ####[address] [address] MCV 85.8 fL Normal 80.0-99.0 [facility] Comment on above: Order Comment: CBN Performed By: #### G FR ####[facility], [address] [place] [address] Monocytes/100 leukocytes 4.9 % Normal 2.0-13.0 [facility] Comment on above: Order Comment: CBN Performed By: #### G FR ####[address] [address] Neutrophils 4.40 10 3/mcL Normal 1.90-7.90 [facility] Comment on above: Order Comment: CBN Performed By: #### G FR ####[address] [address] Neutrophils/100 WBC Auto (Bld) 56.5 % Normal 50.0-75.0 [facility] Comment on above: Order Comment: CBN Performed By: #### G FR ####[address] [address] Platelet mean volume (PMV) 8.0 fL Normal 6.6-10.5 [facility] Comment on above: Order Comment: CBN Performed By: #### G FR ####[facility], [address] [place] [address] Platelets 301 10 3/mcL Normal 150-450 [facility] Comment on above: Order Comment: CBN Performed By: #### G FR ####[address] [address] WBC (Leukocytes) 7.70 10 3/mcL Normal 4.50-10.80 [facility] Comment on above: Order Comment: CBN Performed By: #### G FR ####[address] [place] [address] Depart Summaryon 02-24-2017 Depart Summary Normal [facility] Discharge Note-Physicianon 0 02-24-2017 Discharge Note-Physician Normal [facility] Glomerular Filtration Rate E stimateon 02-24-2017 eGFR (non-black) mL/min/{1.73_m2} Normal [facility] Comment on above: Order Comment: CBN Result Comment: Davidson kowalski mean GFR = 116 mL/min/1.73 sq.m. for ages 20-29 years. Chronic Kidney Disease: Less than 60 mL/min/1.73 square metersEnd Stage Renal Disease: Less than 15 mL/min/1.73 square meters Performed By: #### G FR ####[place] [address] History and Physicalon 02-24 History and Physical Normal [facility] Inpatient Patient Summaryon 02-24-2017 Inpatient Patient Summary Normal [facility] Troponin Ion 02-24-2017 Troponin I.cardiac mass conc ng/mL Normal 0.000-0.040 [facility] Comment on above: Result Comment: Trop onin I reference ranges (05/05/14): 0.00-0.040 ng/mL Negative and non-diagnostic. >0.040 ng/mL Consistent with cardiac damage, increased clinical risk and possibility of myocardial infarction. Serial measurements, a rise & fall in test results, clinical history, appropriate symptoms and/or ECG changes may help assess possibility of NV. *Other non-acute coronary syndrome conditions such as CHF, myocarditis, pulmonary emboli, sepsis and cardiac surgery could result in myocardial damage and increased troponin levels. NOTE: This is a new and more precise Troponin assay started 05-05-14 Performed By: #### C BC ####[place] [id number] B-Hydroxybutyrateon 02-24-20 17 B-Hydroxybutyrate 51.30 mg/dL High 0.20-2.81 [facility] Comment on above: Performed By: #### C BC ####[place] [id number] Basic Metabolic Panelon 01-27 BUN/Creatinine Ratio 32.1 mg/mg High 10.0-22.0 [facility] Comment on above: Performed By: #### C BC ####[facility], [address] [place], [place] 5495[address] Creatinine 0.53 mg/dL Normal 0.50-1.20 [facility] Comment on above: Performed By: #### C BC ####[facility], [address] [place] [address] Calcium 8.0 mg/dL Low 8.4-10.1 [facility] Comment on above: Performed By: #### C BC ####[facility], [address] [place] [address] Chloride 109 mmol/L Normal 98-110 [facility] Comment on above: Performed By: #### C BC ####[facility], [address] [place] [address] 311[address] Electrolyte Balance 15.0 mEq/L Normal 4.0-15.0 [facility] Comment on above: Performed By: #### C BC ####[facility], [address] [place] [address] 280[address] Sodium 141 mmol/L Normal 136-145 [facility] Comment on above: Performed By: #### C BC ####[facility], [address] [place] [address] 32677 CO2 17 mmol/L Low 22-32 [facility] Comment on above: Performed By: #### C BC ####[facility], [address] [place] [address] Glucose mass conc 160 mg/dL High 70-110 [facility] Comment on above: Performed By: #### C BC ####[facility], [address] [place] [address] Urea nitrogen 17.0 mg/dL Normal 8.0-22.0 [facility] Comment on above: Performed By: #### C BC ####[facility], [address] [place] [address] 27500 Potassium molar conc 3.9 mmol/L Normal 3.5-5.0 [facility] Comment on above: Performed By: #### C BC ####[facility], [address] [place] [address] Calcium 7.9 mg/dL Low 8.4-10.1 [facility] Comment on above: Performed By: #### C BC ####[facility], [address] [place] [address]693 Chloride 103 mmol/L Normal 98-110 [facility] Comment on above: Performed By: #### C BC ####[facility], [address] [place] [address] Electrolyte Balance 15.0 mEq/L Normal 4.0-15.0 [facility] Comment on above: Performed By: #### C BC ####[facility], [address] [place] [address]142 BUN/Creatinine Ratio 33.3 mg/mg High 10.0-22.0 [facility] Comment on above: Performed By: #### C BC ####[facility], [address] [place] [address] Creatinine 0.54 mg/dL Normal 0.50-1.20 [facility] Comment on above: Performed By: #### C BC ####[facility], [address] [place], [place] [address] CO2 19 mmol/L Low 22-32 [facility] Comment on above: Performed By: #### C BC ####[facility], [address] [place] [address] Glucose mass conc 368 mg/dL High 70-110 [facility] Comment on above: Performed By: #### C BC ####[facility], [address] [place] [address] Urea nitrogen 18.0 mg/dL Normal 8.0-22.0 [facility] Comment on above: Performed By: #### C BC ####[facility], [address] [place] [address] 26051 Potassium molar conc 4.2 mmol/L Normal 3.5-5.0 [facility] Comment on above: Performed By: #### C BC ####[address] [address] [address] Sodium 137 mmol/L Normal 136-145 [facility] Comment on above: Performed By: #### C BC ####[facility], [address] [place] [address] Glucose mass conc 568 mg/dL Critically high 70-110 [facility] Comment on above: Order Comment: CBN Performed By: #### B MP ####[facility], [address] [place] [address] BUN/Creatinine Ratio 27.3 mg/mg High 10.0-22.0 [facility] Comment on above: Order Comment: CBN Performed By: #### B MP ####[place] [address] Creatinine 0.77 mg/dL Normal 0.50-1.20 [facility] Comment on above: Order Comment: CBN Performed By: #### B MP ####[place] [address] Calcium 10.1 mg/dL Normal 8.4-10.1 [facility] Comment on above: Order Comment: CBN Performed By: #### B MP ####[place] [address] CO2 21 mmol/L Low 22-32 [facility] Comment on above: Order Comment: CBN Performed By: #### B MP ####[facility], [address] [place] [address] Electrolyte Balance 19.0 mEq/L High 4.0-15.0 [facility] Comment on above: Order Comment: CBN Performed By: #### B MP ####[address] [address] Urea nitrogen 21.0 mg/dL Normal 8.0-22.0 [facility] Comment on above: Order Comment: CBN Performed By: #### B MP ####[address] [address] Chloride 89 mmol/L Low 98-110 [facility] Comment on above: Order Comment: CBN Performed By: #### B MP ####[place] [address] Potassium molar conc 4.5 mmol/L Normal 3.5-5.0 [facility] Comment on above: Order Comment: CBN Performed By: #### B MP ####[place] [address] Sodium 129 mmol/L Low 136-145 [facility] Comment on above: Order Comment: CBN Performed By: #### B MP ####[place] [address] CBCon 02-23-2017 Basophils/100 WBC Auto (Bld) 0.7 % Normal 0.0-2.5 [facility] Comment on above: Order Comment: CBN Performed By: #### C BC ####[place] [address] Eosinophils/100 leukocytes 0.7 % Normal 0.0-6.0 [facility] Comment on above: Order Comment: CBN Performed By: #### C BC ####[place] [address] Erythrocyte distribution width Auto Ratio (RBC) 14.9 % Normal 11.5-15.5 [facility] Comment on above: Order Comment: CBN Performed By: #### C BC ####[place] [address] Erythrocytes (RBC) 5.16 10 6/mcL Normal 4.10-5.30 [facility] Comment on above: Order Comment: CBN Performed By: #### C BC ####[place] [address] Hematocrit (HCT) 44.8 % Normal 34.0-46.0 [facility] Comment on above: Order Comment: CBN Performed By: #### C BC ####[address] [place] [address] Hemoglobin mass conc (Bld) 14.7 G/dL Normal 12.0-16.0 [facility] Comment on above: Order Comment: CBN Performed By: #### C BC ####[facility], [address] [place] [address] Lymphocytes/100 leukocytes 21.2 % Normal 20.0-40.0 [facility] Comment on above: Order Comment: CBN Performed By: #### C BC ####[facility], [address] [place] [address] MCH 28.5 pg Normal 27.0-33.0 [facility] Comment on above: Order Comment: CBN Performed By: #### C BC ####[facility], [address] [place] [address] MCHC mass conc (RBC) 32.8 G/dL Normal 32.0-36.0 [facility] Comment on above: Order Comment: CBN Performed By: #### C BC ####[facility], [address] [place] [address] MCV 86.9 fL Normal 80.0-99.0 [facility] Comment on above: Order Comment: CBN Performed By: #### C BC ####[facility], [address] [place] [address] Monocytes/100 leukocytes 3.9 % Normal 2.0-13.0 [facility] Comment on above: Order Comment: CBN Performed By: #### C BC ####[facility], [address] [place] [address] Neutrophils 6.10 10 3/mcL Normal 1.90-7.90 [facility] Comment on above: Order Comment: CBN Performed By: #### C BC ####[address] [address] Neutrophils/100 WBC Auto (Bld) 73.5 % Normal 50.0-75.0 [facility] Comment on above: Order Comment: CBN Performed By: #### C BC ####[facility], [address] [place] [address] Platelet mean volume (PMV) 7.9 fL Normal 6.6-10.5 [facility] Comment on above: Order Comment: CBN Performed By: #### C BC ####[facility], [address] [place] [address] Platelets 316 10 3/mcL Normal 150-450 [facility] Comment on above: Order Comment: CBN Performed By: #### C BC ####[facility], [address] [place] [address] WBC (Leukocytes) 8.30 10 3/mcL Normal 4.50-10.80 [facility] Comment on above: Order Comment: CBN Performed By: #### C BC ####[address] [address] Culture Bloodon 02-23-2017 Culture Blood Name : KATHLEEN VILLA Brynn : 1995 Sex: Ovalles# Loc Src Site [id number] Blood #1 02/23/17NTIBIOTICS AT COL.: See MEGAN Angel MEDICINE RESIDENT [address] [place], [place] [id number] Blood FINALCulture has been received in lab and is no growth to date.Routine cultures are held for 5 days.Blood Culture: No Growth at 5 daysKEY FOR RESULTS: - NEW RESULTATT.PHYS.: AVMSI MARRUFO LOCATION: [id number].DATE: 02/23/17 PATIENT : KATHLEEN VILLA LMICROBIOLOGYPRINTED: 02/28/17 18:00 REGULAR 2 PAGE: 2 of 1 1 Normal [facility] Drug Screen (s)on 02-23-2017 Acetaminophen mass conc <2.0 Low 10.0-30.0 [facility] Comment on above: Performed By: #### C BC ####[facility], [address] [place] [address] Drug Screen (s) Positive Normal [facility] Comment on above: Result Comment: . THE SERUM SHOWS EVIDENCE OF:1. Salicylate. Performed By: #### C BC ####[facility], [address] [place] [address] Ethanol mg/dL Normal [facility] Comment on above: Performed By: #### C BC ####[facility], [address] [place] [address] Serum TCA Negative Normal [facility] Comment on above: Performed By: #### C BC ####[facility], [address] [place] [address] Salicylate (ds) 3.0 mg/dL Low 10.0-25.0 [facility] Comment on above: Performed By: #### C BC ####[facility], [address] [place] [address] Drugs screened: SEE BELOW Normal [facility] Comment on above: Result Comment: T his drug screen is a presumptive screening only. Noconfirmation will be performed unless requested.Drugs screened include: Threshold Ethanol 10.0 mg/dl Salicylate 2.0 mg/dL Acetaminophen 2.0 mcg/mL Tricyclic Antidepressants 300 ng/mLTesting has been performed FOR MEDICAL PURPOSES ONLY. Performed By: #### C BC ####[facility], [address] [place] [address] ED Note-Provideron 7 ED Note-Provider Normal [facility] Glomerular Filtration Rate E stimateon 02-23-2017 eGFR (non-black) mL/min/{1.73_m2} Normal [facility] Comment on above: Result Comment: Davidson kowalski mean GFR = 116 mL/min/1.73 sq.m. for ages 20-29 years. Chronic Kidney Disease: Less than 60 mL/min/1.73 square metersEnd Stage Renal Disease: Less than 15 mL/min/1.73 square meters Performed By: #### C BC ####[facility], [address] [place] [address] eGFR (non-black) mL/min/{1.73_m2} Normal [facility] Comment on above: Result Comment: Davidson kowalski mean GFR = 116 mL/min/1.73 sq.m. for ages 20-29 years. Chronic Kidney Disease: Less than 60 mL/min/1.73 square metersEnd Stage Renal Disease: Less than 15 mL/min/1.73 square meters Performed By: #### G FR ####[place] [address] eGFR (non-black) mL/min/{1.73_m2} Normal [facility] Comment on above: Order Comment: CBN Performed By: #### G FR ####[place] [address] Result Comment: Davidson kowalski mean GFR = 116 mL/min/1.73 sq.m. for ages 20-29 years. Chronic Kidney Disease: Less than 60 mL/min/1.73 square metersEnd Stage Renal Disease: Less than 15 mL/min/1.73 square meters Magnesiumon 02-23-2017 Magnesium 2.0 mg/dL Normal 1.6-2.4 [facility] Comment on above: Performed By: #### M G ####[place] [address] Osmolality (s)on 02-23-2017 Osmolality 299 mOsm/kg Normal 275-300 [facility] Comment on above: Performed By: #### C BC ####[place] [address] Phosphoruson 02-23-2017 Phosphate 2.8 mg/dL Normal 2.5-4.5 [facility] Comment on above: Performed By: #### P HOS ####[facility], [address] [place] [address] TSHon 02-23-2017 Thyroid stimulating hormone (TSH) 0.62 mcIU/mL Normal 0.36-3.74 [facility] Comment on above: Performed By: #### C BC ####[facility], [address] [place] [address] Troponin Ion 02-23-2017 Troponin I.cardiac mass conc ng/mL Normal 0.000-0.040 [facility] Comment on above: Result Comment: Trop onin I reference ranges (05/05/14): 0.00-0.040 ng/mL Negative and non-diagnostic. >0.040 ng/mL Consistent with cardiac damage, increased clinical risk and possibility of myocardial infarction. Serial measurements, a rise & fall in test results, clinical history, appropriate symptoms and/or ECG changes may help assess possibility of NV. *Other non-acute coronary syndrome conditions such as CHF, myocarditis, pulmonary emboli, sepsis and cardiac surgery could result in myocardial damage and increased troponin levels. NOTE: This is a new and more precise Troponin assay started 05-05-14 Performed By: #### T ROPI ####[facility], [address] [place] [address] XR CHEST 1 VIEWon 02-23-2017 XR CHEST [...] PM Sign Date: 02/23/2017 4:58:05 PM Normal [facility] XR FOOT COMPLETE RIGHTon XR FOOT COMPLETE [...] PM Sign Date: 02/23/2017 7:47:57 PM Normal [facility] pH (venous)on 02-23-2017 pH of blood 7.381 [pH] Normal 7.380-7.460 [facility] Comment on above: Order Comment: CBN Performed By: #### P HV ####[facility], [address] [place] [address] Vital Signs Date Time Vital Sign Value Performing Clinician Facility 01-27-2025 13:08-0400 Diastolic blood pressure 87 mm[Hg] [employer] Work Phone: [facility] 01-27-2025 13:08-0400 Heart rate 98 /min [employer] Work Phone: [facility] 01-27-2025 13:08-0400 Systolic blood pressure 134 mm[Hg] [employer] Work Phone: [facility] 11-11-2024 10:18-0400 Body height 175.3 cm Leticia Hylton [employer] Work Phone: [facility] 11-11-2024 10:18-0400 Body mass index (BMI) [Ratio] 25.07 kg/m2 Leticia Hylton [employer] Work Phone: [facility] 11-11-2024 10:18-0400 Body weight 77 kg Leticia Hylton [employer] Work Phone: [facility] 11-11-2024 10:18-0400 Diastolic blood pressure 66 mm[Hg] Leticia Hylton DO Work Phone: [facility] 11-11-2024 10:18-0400 Heart rate 107 /min Leticia Hylton DO Work Phone: [facility] 11-11-2024 10:18-0400 Systolic blood pressure 103 mm[Hg] Leticia Hylton DO Work Phone: [facility] 07-10-2024 11:25-0500 Body height 172.7 cm Jason Paredes MD Work Phone: [facility] 07-10-2024 11:25-0500 Body mass index (BMI) [Ratio] 26 kg/m2 Jason Paredes MD Work Phone: [facility] 07-10-2024 11:25-0500 Body weight 77.56 kg Jason Paredes MD Work Phone: [facility] 07-10-2024 11:25-0500 Diastolic blood pressure 68 mm[Hg] Jason Paredes MD Work Phone: [facility] 07-10-2024 11:25-0500 Systolic blood pressure 112 mm[Hg] Jason Paredes MD Work Phone: [facility] 03-12-2024 13:58-0400 Body height 175.3 cm Kvng Lewis MD Work Phone: [facility] 03-12-2024 13:58-0400 Body mass index (BMI) [Ratio] 25.39 kg/m2 Kvng Lewis MD Work Phone: [facility] 03-12-2024 13:58-0400 Body weight 78 kg Kvng Lewis MD Work Phone: [facility] 03-12-2024 13:58-0400 Diastolic blood pressure 58 mm[Hg] Kvng Lewis MD Work Phone: [facility] 03-12-2024 13:58-0400 Heart rate 69 /min Kvng Lewis MD Work Phone: [facility] 03-12-2024 13:58-0400 SaO2% (BldA) [Mass fraction] 97 % Kvng Lewis MD Work Phone: [facility] 03-12-2024 13:58-0400 Systolic blood pressure 100 mm[Hg] Kvng Lewis MD Work Phone: [facility] 12-13-2023 15:12-0400 Body weight 77.11 kg Jessica Boyd [employer] Work Phone: [facility] 12-13-2023 15:12-0400 Diastolic blood pressure 87 mm[Hg] Jessica Boyd [employer] Work Phone: [facility] 12-13-2023 15:12-0400 Heart rate 80 /min Jessica Boyd [employer] Work Phone: [facility] 12-13-2023 15:12-0400 Respiratory rate 16 /min Jessica Boyd [employer] Work Phone: [facility] 12-13-2023 15:12-0400 Systolic blood pressure 139 mm[Hg] Jessica Boyd [employer] Work Phone: [facility] 12-07-2023 17:30-0400 Body height 175.26 cm No Primary Care Physician [facility] 12-07-2023 17:30-0400 Body temperature 97.1 [degF] No Primary Care Physician [facility] 12-07-2023 17:30-0400 Diastolic blood pressure 70 mm[Hg] No Primary Care Physician [facility] 12-07-2023 17:30-0400 Heart rate 68 /min No Primary Care Physician [facility] 12-07-2023 17:30-0400 Respiratory rate 15 /min No Primary Care Physician [facility] 12-07-2023 17:30-0400 SaO2% (BldA) [Mass fraction] 98 % No Primary Care Physician [facility] 12-07-2023 17:30-0400 Systolic blood pressure 130 mm[Hg] No Primary Care Physician [facility] 10-25-2023 22:04-0500 Body temperature 97.4 [degF] No Primary Care Physician [facility] 10-25-2023 22:04-0500 Diastolic blood pressure 64 mm[Hg] No Primary Care Physician [facility] 10-25-2023 22:04-0500 Heart rate 77 /min No Primary Care Physician [facility] 10-25-2023 22:04-0500 Respiratory rate 19 /min No Primary Care Physician [facility] 10-25-2023 22:04-0500 SaO2% (BldA) [Mass fraction] 100 % No Primary Care Physician [facility] 10-25-2023 22:04-0500 Systolic blood pressure 117 mm[Hg] No Primary Care Physician [facility] 10-25-2023 17:12-0500 Body mass index (BMI) [Ratio] 23.3 kg/m2 No Primary Care Physician [facility] 10-25-2023 17:12-0500 Body weight 71.7 kg No Primary Care Physician [facility] 10-25-2023 16:24-0500 Body height 175.26 cm No Primary Care Physician [facility] 10-18-2023 10:00-0500 Diastolic blood pressure 71 mm[Hg] No Primary Care Physician [facility] 10-18-2023 10:00-0500 Heart rate 62 /min No Primary Care Physician [facility] 10-18-2023 10:00-0500 Respiratory rate 16 /min No Primary Care Physician [facility] 10-18-2023 10:00-0500 SaO2% (BldA) [Mass fraction] 99 % No Primary Care Physician [facility] 10-18-2023 10:00-0500 Systolic blood pressure 115 mm[Hg] No Primary Care Physician [facility] 10-18-2023 08:00-0500 Body temperature 97.9 [degF] No Primary Care Physician [facility] 10-18-2023 05:28-0500 Body mass index (BMI) [Ratio] 24.6 kg/m2 No Primary Care Physician [facility] 10-18-2023 05:28-0500 Body weight 75.6 kg No Primary Care Physician [facility] 10-17-2023 15:25-0500 Body height 175.26 cm No Primary Care Physician [facility] 10-17-2023 11:51-0500 Body temperature 97.6 [degF] No Primary Care Physician [facility] 10-17-2023 11:51-0500 Diastolic blood pressure 58 mm[Hg] No Primary Care Physician [facility] 10-17-2023 11:51-0500 Heart rate 85 /min No Primary Care Physician [facility] 10-17-2023 11:51-0500 Respiratory rate 18 /min No Primary Care Physician [facility] 10-17-2023 11:51-0500 SaO2% (BldA) [Mass fraction] 98 % No Primary Care Physician [facility] 10-17-2023 11:51-0500 Systolic blood pressure 116 mm[Hg] No Primary Care Physician [facility] 10-17-2023 09:57-0500 Body height 175.26 cm No Primary Care Physician [facility] 10-17-2023 09:57-0500 Body mass index (BMI) [Ratio] 24.7 kg/m2 No Primary Care Physician [facility] 10-17-2023 09:57-0500 Body weight 76.2 kg No Primary Care Physician [facility] 09-25-2023 11:05-0500 Body temperature 97.6 [degF] No Primary Care Physician [facility] 09-25-2023 11:05-0500 Heart rate 76 /min No Primary Care Physician [facility] 09-25-2023 11:05-0500 Respiratory rate 14 /min No Primary Care Physician [facility] 09-25-2023 11:05-0500 SaO2% (BldA) [Mass fraction] 99 % No Primary Care Physician [facility] 09-25-2023 08:08-0500 Body mass index (BMI) [Ratio] 24.1 kg/m2 No Primary Care Physician [facility] 09-25-2023 08:08-0500 Body weight 74.19 kg No Primary Care Physician [facility] 09-25-2023 08:08-0500 Diastolic blood pressure 79 mm[Hg] No Primary Care Physician [facility] 09-25-2023 08:08-0500 Systolic blood pressure 140 mm[Hg] No Primary Care Physician [facility] 09-24-2023 20:19-0500 Body temperature 97 [degF] No Primary Care Physician [facility] 09-24-2023 20:19-0500 Diastolic blood pressure 66 mm[Hg] No Primary Care Physician [facility] 09-24-2023 20:19-0500 Heart rate 96 /min No Primary Care Physician [facility] 09-24-2023 20:19-0500 Respiratory rate 16 /min No Primary Care Physician [facility] 09-24-2023 20:19-0500 SaO2% (BldA) [Mass fraction] 97 % No Primary Care Physician [facility] 09-24-2023 20:19-0500 Systolic blood pressure 125 mm[Hg] No Primary Care Physician [facility] 09-24-2023 17:48-0500 Body height 175.26 cm No Primary Care Physician [facility] 09-24-2023 17:48-0500 Body mass index (BMI) [Ratio] 24.3 kg/m2 No Primary Care Physician [facility] 09-24-2023 17:48-0500 Body weight 74.7 kg No Primary Care Physician [facility] 09-20-2023 15:35-0500 Diastolic blood pressure 79 mm[Hg] No Primary Care Physician [facility] 09-20-2023 15:35-0500 Heart rate 79 /min No Primary Care Physician [facility] 09-20-2023 15:35-0500 Respiratory rate 16 /min No Primary Care Physician [facility] 09-20-2023 15:35-0500 SaO2% (BldA) [Mass fraction] 97 % No Primary Care Physician [facility] 09-20-2023 15:35-0500 Systolic blood pressure 107 mm[Hg] No Primary Care Physician [facility] 09-20-2023 10:21-0500 Body mass index (BMI) [Ratio] 25.9 kg/m2 No Primary Care Physician [facility] 09-20-2023 10:21-0500 Body temperature 97.9 [degF] No Primary Care Physician [facility] 09-20-2023 10:21-0500 Body weight 79.9 kg No Primary Care Physician [facility] 09-06-2023 21:32-0500 Heart rate 78 /min No Primary Care Physician [facility] 09-06-2023 21:32-0500 Respiratory rate 18 /min No Primary Care Physician [facility] 09-06-2023 21:32-0500 SaO2% (BldA) [Mass fraction] 99 % No Primary Care Physician [facility] 09-06-2023 21:30-0500 Diastolic blood pressure 72 mm[Hg] No Primary Care Physician [facility] 09-06-2023 21:30-0500 Systolic blood pressure 118 mm[Hg] No Primary Care Physician [facility] 09-06-2023 18:31-0500 Body mass index (BMI) [Ratio] 25.3 kg/m2 No Primary Care Physician [facility] 09-06-2023 18:31-0500 Body temperature 98.2 [degF] No Primary Care Physician [facility] 09-06-2023 18:31-0500 Body weight 77.9 kg No Primary Care Physician [facility] 08-22-2023 06:14-0500 Diastolic blood pressure 63 mm[Hg] No Primary Care Physician [facility] 08-22-2023 06:14-0500 Heart rate 64 /min No Primary Care Physician [facility] 08-22-2023 06:14-0500 Respiratory rate 16 /min No Primary Care Physician [facility] 08-22-2023 06:14-0500 SaO2% (BldA) [Mass fraction] 97 % No Primary Care Physician [facility] 08-22-2023 06:14-0500 Systolic blood pressure 99 mm[Hg] No Primary Care Physician [facility] 08-22-2023 02:45-0500 Body height 175.26 cm No Primary Care Physician [facility] 08-22-2023 02:45-0500 Body mass index (BMI) [Ratio] 26.4 kg/m2 No Primary Care Physician [facility] 08-22-2023 02:45-0500 Body temperature 98.7 [degF] No Primary Care Physician [facility] 08-22-2023 02:45-0500 Body weight 81.2 kg No Primary Care Physician [facility] 08-10-2023 08:00-0500 Body temperature 98.1 [degF] No Primary Care Physician [facility] 08-10-2023 08:00-0500 Diastolic blood pressure 71 mm[Hg] No Primary Care Physician [facility] 08-10-2023 08:00-0500 Heart rate 65 /min No Primary Care Physician [facility] 08-10-2023 08:00-0500 Respiratory rate 15 /min No Primary Care Physician [facility] 08-10-2023 08:00-0500 SaO2% (BldA) [Mass fraction] 97 % No Primary Care Physician [facility] 08-10-2023 08:00-0500 Systolic blood pressure 109 mm[Hg] No Primary Care Physician [facility] 08-10-2023 05:07-0500 Body mass index (BMI) [Ratio] 25.9 kg/m2 No Primary Care Physician [facility] 08-10-2023 05:07-0500 Body weight 79.9 kg No Primary Care Physician [facility] 08-07-2023 10:46-0500 Body height 175.26 cm No Primary Care Physician [facility] 08-07-2023 00:45-0500 Diastolic blood pressure 41 mm[Hg] No Primary Care Physician [facility] 08-07-2023 00:45-0500 Heart rate 114 /min No Primary Care Physician [facility] 08-07-2023 00:45-0500 Respiratory rate 18 /min No Primary Care Physician [facility] 08-07-2023 00:45-0500 SaO2% (BldA) [Mass fraction] 99 % No Primary Care Physician [facility] 08-07-2023 00:45-0500 Systolic blood pressure 136 mm[Hg] No Primary Care Physician [facility] 08-06-2023 21:33-0500 Body height 175.26 cm No Primary Care Physician [facility] 08-06-2023 21:33-0500 Body mass index (BMI) [Ratio] 25.9 kg/m2 No Primary Care Physician [facility] 08-06-2023 21:33-0500 Body temperature 97.8 [degF] No Primary Care Physician [facility] 08-06-2023 21:33-0500 Body weight 79.8 kg No Primary Care Physician [facility] 08-06-2023 14:00-0500 Respiratory rate 16 /min No Primary Care Physician [facility] 08-06-2023 08:53-0500 Body height 175.26 cm No Primary Care Physician [facility] 08-06-2023 08:53-0500 Body mass index (BMI) [Ratio] 26.3 kg/m2 No Primary Care Physician [facility] 08-06-2023 08:53-0500 Body temperature 97.6 [degF] No Primary Care Physician [facility] 08-06-2023 08:53-0500 Body weight 80.8 kg No Primary Care Physician [facility] 08-06-2023 08:53-0500 Diastolic blood pressure 83 mm[Hg] No Primary Care Physician [facility] 08-06-2023 08:53-0500 Heart rate 115 /min No Primary Care Physician [facility] 08-06-2023 08:53-0500 SaO2% (BldA) [Mass fraction] 97 % No Primary Care Physician [facility] 08-06-2023 08:53-0500 Systolic blood pressure 126 mm[Hg] No Primary Care Physician [facility] 06-26-2023 02:56-0400 Diastolic blood pressure 48 mm[Hg] No Primary Care Physician [facility] 06-26-2023 02:56-0400 Systolic blood pressure 96 mm[Hg] No Primary Care Physician [facility] 06-26-2023 01:13-0400 Heart rate 80 /min No Primary Care Physician [facility] 06-26-2023 01:13-0400 Respiratory rate 18 /min No Primary Care Physician [facility] 06-26-2023 01:13-0400 SaO2% (BldA) [Mass fraction] 97 % No Primary Care Physician [facility] 06-25-2023 23:14-0400 Body height 175.26 cm No Primary Care Physician [facility] 06-25-2023 23:14-0400 Body mass index (BMI) [Ratio] 26.5 kg/m2 No Primary Care Physician [facility] 06-25-2023 23:14-0400 Body temperature 97.4 [degF] No Primary Care Physician [facility] 06-25-2023 23:14-0400 Body weight 81.6 kg No Primary Care Physician [facility] 06-25-2023 11:37-0400 Heart rate 82 /min No Primary Care Physician [facility] 06-25-2023 11:37-0400 Respiratory rate 16 /min No Primary Care Physician [facility] 06-25-2023 11:37-0400 SaO2% (BldA) [Mass fraction] 97 % No Primary Care Physician [facility] 06-25-2023 08:21-0400 Body height 175.01 cm No Primary Care Physician [facility] 06-25-2023 08:21-0400 Body mass index (BMI) [Ratio] 25.8 kg/m2 No Primary Care Physician [facility] 06-25-2023 08:21-0400 Body temperature 97.4 [degF] No Primary Care Physician [facility] 06-25-2023 08:21-0400 Body weight 79.06 kg No Primary Care Physician [facility] 06-25-2023 08:21-0400 Diastolic blood pressure 45 mm[Hg] No Primary Care Physician [facility] 06-25-2023 08:21-0400 Systolic blood pressure 136 mm[Hg] No Primary Care Physician [facility] 05-31-2023 15:02-0400 Body weight 78.47 kg Jessica Boyd POT MAKER.FORESTRY TECHNICAL OFFICER Work Phone: [facility] 05-31-2023 15:02-0400 Diastolic blood pressure 60 mm[Hg] Jessica Boyd POT MAKER.FORESTRY TECHNICAL OFFICER Work Phone: [facility] 05-31-2023 15:02-0400 Heart rate 91 /min Jessica Boyd POT MAKER.FORESTRY TECHNICAL OFFICER Work Phone: [facility] 05-31-2023 15:02-0400 Respiratory rate 18 /min Jessica Boyd POT MAKER.FORESTRY TECHNICAL OFFICER Work Phone: [facility] 05-31-2023 15:02-0400 Systolic blood pressure 92 mm[Hg] Jessica Boyd POT MAKER.FORESTRY TECHNICAL OFFICER Work Phone: [facility] 05-03-2023 09:00-0400 Respiratory rate 16 /min No Primary Care Physician [facility] 05-03-2023 04:23-0400 Body height 175.26 cm No Primary Care Physician [facility] 05-03-2023 04:23-0400 Body mass index (BMI) [Ratio] 26.9 kg/m2 No Primary Care Physician [facility] 05-03-2023 04:23-0400 Body temperature 97.7 [degF] No Primary Care Physician [facility] 05-03-2023 04:23-0400 Body weight 82.8 kg No Primary Care Physician [facility] 05-03-2023 04:23-0400 Diastolic blood pressure 68 mm[Hg] No Primary Care Physician [facility] 05-03-2023 04:23-0400 Heart rate 89 /min No Primary Care Physician [facility] 05-03-2023 04:23-0400 SaO2% (BldA) [Mass fraction] 97 % No Primary Care Physician [facility] 05-03-2023 04:23-0400 Systolic blood pressure 121 mm[Hg] No Primary Care Physician [facility] 04-29-2023 14:12-0400 Body temperature 98.3 [degF] No Primary Care Physician [facility] 04-29-2023 14:12-0400 Diastolic blood pressure 61 mm[Hg] No Primary Care Physician [facility] 04-29-2023 14:12-0400 Heart rate 62 /min No Primary Care Physician [facility] 04-29-2023 14:12-0400 Respiratory rate 18 /min No Primary Care Physician [facility] 04-29-2023 14:12-0400 SaO2% (BldA) [Mass fraction] 98 % No Primary Care Physician [facility] 04-29-2023 14:12-0400 Systolic blood pressure 132 mm[Hg] No Primary Care Physician [facility] 04-28-2023 12:55-0400 Body height 175.26 cm No Primary Care Physician [facility] 04-28-2023 12:55-0400 Body weight 78.69 kg No Primary Care Physician [facility] 04-27-2023 17:02-0400 Body mass index (BMI) [Ratio] 25.6 kg/m2 No Primary Care Physician [facility] 04-27-2023 16:45-0400 Diastolic blood pressure 61 mm[Hg] [facility] 04-27-2023 16:45-0400 Respiratory rate 18 /min [facility] 04-27-2023 16:45-0400 Systolic blood pressure 118 mm[Hg] [facility] 04-27-2023 16:13-0400 Body temperature 97.8 [degF] [facility] 04-27-2023 16:13-0400 Heart rate 90 /min [facility] 04-27-2023 13:23-0400 SaO2% (BldA) [Mass fraction] 96 % [facility] 04-27-2023 09:26-0400 Body height 175.01 cm [facility] 04-27-2023 09:26-0400 Body mass index (BMI) [Ratio] 28.1 kg/m2 [facility] 04-27-2023 09:26-0400 Body weight 86.2 kg [facility] 04-26-2023 23:47-0400 Respiratory rate 22 /min [facility] 04-26-2023 22:00-0400 Heart rate 81 /min [facility] 04-26-2023 22:00-0400 SaO2% (BldA) [Mass fraction] 97 % [facility] 04-26-2023 21:29-0400 Diastolic blood pressure 82 mm[Hg] [facility] 04-26-2023 21:29-0400 Systolic blood pressure 115 mm[Hg] [facility] 04-26-2023 20:25-0400 Body height 175.26 cm [facility] 04-26-2023 20:25-0400 Body mass index (BMI) [Ratio] 25.4 kg/m2 [facility] 04-26-2023 20:25-0400 Body temperature 98.6 [degF] [facility] 04-26-2023 20:25-0400 Body weight 78.21 kg [facility] 04-23-2023 13:00-0400 Respiratory rate 16 /min [facility] 04-23-2023 11:40-0400 Heart rate 52 /min [facility] 04-23-2023 08:33-0400 Body mass index (BMI) [Ratio] 26.9 kg/m2 [facility] 04-23-2023 08:33-0400 Body temperature 97.6 [degF] [facility] 04-23-2023 08:33-0400 Body weight 82.6 kg [facility] 04-23-2023 08:33-0400 Diastolic blood pressure 77 mm[Hg] [facility] 04-23-2023 08:33-0400 SaO2% (BldA) [Mass fraction] 96 % [facility] 04-23-2023 08:33-0400 Systolic blood pressure 123 mm[Hg] [facility] 03-22-2023 11:23-0400 Body temperature 98.1 [degF] Benito Desir MD Work Phone: [facility] 03-22-2023 11:23-0400 Diastolic blood pressure 72 mm[Hg] Benito Desir MD Work Phone: [facility] 03-22-2023 11:23-0400 Heart rate 61 /min Benito Desir MD Work Phone: [facility] 03-22-2023 11:23-0400 Respiratory rate 16 /min Benito Desir MD Work Phone: [facility] 03-22-2023 11:23-0400 SaO2% (BldA) [Mass fraction] 96 % Benito Desir MD Work Phone: [facility] 03-22-2023 11:23-0400 Systolic blood pressure 116 mm[Hg] Benito Desir MD Work Phone: [facility] 03-20-2023 03:02-0400 Body height 175.3 cm Benito Desir MD Work Phone: [facility] 03-20-2023 03:02-0400 Body mass index (BMI) [Ratio] 26.73 kg/m2 Benito Desir MD Work Phone: [facility] 03-20-2023 03:02-0400 Body weight 82.1 kg Benito Desir MD Work Phone: [facility] 01-25-2023 14:02-0400 Body weight 83.92 kg Autumn Valadez APRN.CNP Work Phone: [facility] 01-25-2023 14:02-0400 Diastolic blood pressure 64 mm[Hg] Autumn Valadez POT MAKER.FORESTRY TECHNICAL OFFICER Work Phone: [facility] 01-25-2023 14:02-0400 Heart rate 73 /min Autumn Valadez POT MAKER.FORESTRY TECHNICAL OFFICER Work Phone: [facility] 01-25-2023 14:02-0400 Respiratory rate 18 /min Autumn Valadez POT MAKER.FORESTRY TECHNICAL OFFICER Work Phone: [facility] 01-25-2023 14:02-0400 Systolic blood pressure 129 mm[Hg] Autumn Valadez POT MAKER.FORESTRY TECHNICAL OFFICER Work Phone: [facility] 12-08-2022 14:10-0400 Body height 175.3 cm Vivi Smith MD Work Phone: [facility] 12-08-2022 14:10-0400 Body temperature 97 [degF] Vivi Smith MD Work Phone: [facility] 12-08-2022 14:10-0400 Body weight 85 kg Vivi Smith MD Work Phone: [facility] 12-08-2022 14:10-0400 Diastolic blood pressure 86 mm[Hg] Vivi Smith MD Work Phone: [facility] 12-08-2022 14:10-0400 Heart rate 90 /min Vivi Smith MD Work Phone: [facility] 12-08-2022 14:10-0400 Respiratory rate 20 /min Vivi Smith MD Work Phone: [facility] 12-08-2022 14:10-0400 SaO2% (BldA) [Mass fraction] 98 % Vivi Smith MD Work Phone: [facility] 12-08-2022 14:10-0400 Systolic blood pressure 142 mm[Hg] Vivi Smith MD Work Phone: [facility] 11-07-2022 14:00-0400 Body temperature 97.3 [degF] Abelardo La MD Work Phone: [facility] 11-07-2022 14:00-0400 Body weight 90.72 kg Abelardo La MD Work Phone: [facility] 11-07-2022 14:00-0400 Diastolic blood pressure 72 mm[Hg] Abelardo La MD Work Phone: [facility] 11-07-2022 14:00-0400 Heart rate 94 /min Abelardo La MD Work Phone: [facility] 11-07-2022 14:00-0400 Respiratory rate 16 /min Abelardo La MD Work Phone: [facility] 11-07-2022 14:00-0400 SaO2% (BldA) [Mass fraction] 95 % Abelardo La MD Work Phone: [facility] 11-07-2022 14:00-0400 Systolic blood pressure 129 mm[Hg] Abelardo La MD Work Phone: [facility] 10-22-2022 16:14-0500 Body temperature 99.5 [degF] Abelardo La MD Work Phone: [facility] 10-22-2022 16:14-0500 Body weight 86.18 kg Abelardo La MD Work Phone: [facility] 10-22-2022 16:14-0500 Diastolic blood pressure 96 mm[Hg] Abelardo La MD Work Phone: [facility] 10-22-2022 16:14-0500 Heart rate 143 /min Abelardo La MD Work Phone: [facility] 10-22-2022 16:14-0500 Respiratory rate 20 /min Abelardo La MD Work Phone: [facility] 10-22-2022 16:14-0500 SaO2% (BldA) [Mass fraction] 94 % Abelardo La MD Work Phone: [facility] 10-22-2022 16:14-0500 Systolic blood pressure 150 mm[Hg] Abelardo La MD Work Phone: [facility] 09-19-2022 13:18-0500 Body temperature 97.5 [degF] Injection/[facility] 09-19-2022 13:18-0500 Diastolic blood pressure 62 mm[Hg] Injection/[facility] 09-19-2022 13:18-0500 Heart rate 50 /min Injection/[facility] 09-19-2022 13:18-0500 Respiratory rate 18 /min Injection/[facility] 09-19-2022 13:18-0500 Systolic blood pressure 123 mm[Hg] Injection/[facility] 08-16-2022 15:14-0500 Body weight 87.09 kg Autumn Valadez APRN.FORESTRY TECHNICAL OFFICER Work Phone: [facility] 08-16-2022 15:14-0500 Diastolic blood pressure 58 mm[Hg] Autumn Valadez POT MAKER.FORESTRY TECHNICAL OFFICER Work Phone: [facility] 08-16-2022 15:14-0500 Heart rate 68 /min Autumn Valadez POT MAKER.FORESTRY TECHNICAL OFFICER Work Phone: [facility] 08-16-2022 15:14-0500 SaO2% (BldA) [Mass fraction] 95 % Autumn Valadez POT MAKER.FORESTRY TECHNICAL OFFICER Work Phone: [facility] 08-16-2022 15:14-0500 Systolic blood pressure 113 mm[Hg] Autumn Valadez POT MAKER.FORESTRY TECHNICAL OFFICER Work Phone: [facility] 08-05-2022 11:37-0500 Body temperature 97.2 [degF] Injection/[facility] 08-05-2022 11:37-0500 Diastolic blood pressure 70 mm[Hg] Injection/[facility] 08-05-2022 11:37-0500 Heart rate 68 /min Injection/[facility] 08-05-2022 11:37-0500 Respiratory rate 18 /min Injection/[facility] 08-05-2022 11:37-0500 Systolic blood pressure 119 mm[Hg] Injection/[facility] 06-07-2022 14:14-0400 Body height 175.3 cm Phoebe Easter POT MAKER.FORESTRY TECHNICAL OFFICER Work Phone: [facility] 06-07-2022 14:14-0400 Body weight 82.33 kg Phoebe Easterday POT MAKER.FORESTRY TECHNICAL OFFICER Work Phone: [facility] 06-07-2022 14:14-0400 Diastolic blood pressure 70 mm[Hg] Phoebe Easterday POT MAKER.FORESTRY TECHNICAL OFFICER Work Phone: [facility] 06-07-2022 14:14-0400 Systolic blood pressure 118 mm[Hg] Phoebe Easter POT MAKER.FORESTRY TECHNICAL OFFICER Work Phone: [facility] 04-18-2022 08:13-0400 Body height 175.3 cm Dishon Kamwesa POT MAKER.FORESTRY TECHNICAL OFFICER Work Phone: [facility] 04-18-2022 08:13-0400 Body temperature 96.91 [degF] Dishon Kamwesa POT MAKER.FORESTRY TECHNICAL OFFICER Work Phone: [facility] 04-18-2022 08:13-0400 Body weight 81.65 kg Dishon Kamwesa POT MAKER.FORESTRY TECHNICAL OFFICER Work Phone: [facility] 04-18-2022 08:13-0400 Diastolic blood pressure 72 mm[Hg] Dishon Kamwesa POT MAKER.FORESTRY TECHNICAL OFFICER Work Phone: [facility] 04-18-2022 08:13-0400 Heart rate 78 /min Dishon Kamwesa POT MAKER.FORESTRY TECHNICAL OFFICER Work Phone: [facility] 04-18-2022 08:13-0400 SaO2% (BldA) [Mass fraction] 97 % Dishon Kamwesa POT MAKER.FORESTRY TECHNICAL OFFICER Work Phone: [facility] 04-18-2022 08:13-0400 Systolic blood pressure 120 mm[Hg] Dishon Kamwesa POT MAKER.FORESTRY TECHNICAL OFFICER Work Phone: [facility] 03-11-2022 12:07-0400 Body temperature 96.8 [degF] [facility] 03-11-2022 12:07-0400 Diastolic blood pressure 51 mm[Hg] [facility] 03-11-2022 12:07-0400 Heart rate 55 /min [facility] 03-11-2022 12:07-0400 Respiratory rate 16 /min [facility] 03-11-2022 12:07-0400 Systolic blood pressure 101 mm[Hg] [facility] 03-07-2022 14:00-0400 Body temperature 96.91 [degF] Injection/[facility] 03-07-2022 14:00-0400 Diastolic blood pressure 65 mm[Hg] Injection/[facility] 03-07-2022 14:00-0400 Heart rate 83 /min Injection/[facility] 03-07-2022 14:00-0400 Respiratory rate 16 /min Injection/[facility] 03-07-2022 14:00-0400 Systolic blood pressure 124 mm[Hg] Injection/[facility] 12-28-2021 16:16-0400 Body temperature 97.88 [degF] ANITA COMER MD [facility] 12-28-2021 16:16-0400 Diastolic blood pressure 81 mm[Hg] ANITA COMER MD [facility] 12-28-2021 16:16-0400 Heart rate 78 /min ANITA COMER MD [facility] 12-28-2021 16:16-0400 Respiratory rate 20 /min ANITA COMER MD [facility] 12-28-2021 16:16-0400 Systolic blood pressure 134 mm[Hg] ANITA COMER MD [facility] 05-31-2021 20:30-0400 SaO2% (BldA) [Mass fraction] 100 % [facility] Comment on above: Order Comment: [place]: M Performed By: #### L [id number] ####[facility] [id number] [place], [place] [address]Ie# [phone] Encounters Encounter Date Encounter Type Care Provider Facility Start: 03-31-2025 End: 03-31-2025 ambulatory Zebulun Beam VSC Facility:[facility] Start: 03-17-2025 End: 03-19-2025 Evaluation and management of inpatient Zebulun Beam VSC Facility:[facility] Start: 03-17-2025 ambulatory Zebulun Beam VSC Facili ty:[facility] Start: 03-06-2025 ambulatory Dangelo Encarnacion Fac ility:[facility] Start: 03-06-2025 End: 03-08-2025 Evaluation and management of inpatient Dangelo Encarnacion Facility:[facility] Start: 03-05-2025 End: 03-05-2025 ambulatory Truman Marlen Facility:[facility] Start: 02-25-2025 End: 02-25-2025 ambulatory Zebulun Beam VSC Facility:[facility] Start: 02-18-2025 ambulatory Ileana Lobo Facility:[facility] Start: 02-18-2025 End: 02-19-2025 Evaluation and management of inpatient Ileana Lobo Facility:[facility] Start: 02-03-2025 End: 02-03-2025 ambulatory Zebulun Beam VSC Facility:[facility] Start: 01-27-2025 End: 01-27-2025 Office outpatient visit 25 minutes Mishel Ortez PA-C Work Phone: [facility] Dermatology - [facility] Comment on above: Psoriasis vulgaris ( Primary Dx); Folliculitis; Multiple benign melanocytic nevi of both upper extremities, both lower extremities, and trunk; Seborrheic keratosis; Solar lentigo; Dermatofibroma; Cody angioma; Screening for viral disease; Encounter for screening for respiratory tuberculosis; Encounter for long-term (current) use of medications Start: 01-27-2025 End: 01-27-2025 ambulatory MISHEL ORTEZ [facility] Start: 01-22-2025 ambulatory David F Melanyrogerio Fac ility:[facility] Start: 01-22-2025 End: 01-26-2025 Evaluation and management of inpatient David Watson Luis Facility:[facility] Start: 01-08-2025 End: 01-08-2025 ambulatory Zebulun Beam VSC Facility:[facility] Start: 01-07-2025 End: 01-08-2025 Refill Mishel Ortez PA-C Work Phone: [facility] Start: 12-25-2024 End: 12-25-2024 ambulatory Zebulun Beam [facility] Facility:[facility] Start: 12-19-2024 End: 12-23-2024 Telephone encounter Manasa Cantu PA-C Work Phone: [facility] Comment on above: Appointment Request (rayray) Start: 12-14-2024 End: 12-16-2024 ambulatory Dangelo Alysha Facility:[facility] Start: 11-28-2024 End: 11-28-2024 ambulatory Brit Joseph [facility] Facility:[facility] Start: 11-11-2024 End: 11-11-2024 Telephone encounter Leticia Hylton DO Work Phone: Gastroenterology Start: 11-11-2024 End: 11-11-2024 Subsequent hospital visit by physician [facility] Comment on above: Chronic idiopathic c onstipation [K59.04] Start: 11-11-2024 End: 11-11-2024 ambulatory LETICIA HYLTON Facility:[facility] Start: 11-11-2024 End: 11-11-2024 Patient encounter procedure Leticia Hylton DO Work Phone: Gastroenterology Comment on above: Chronic idiopathic c onstipation (Primary Dx); Abdominal pain, suprapubic Start: 11-05-2024 ambulatory Kenyetta Suarez Facility:[facility] Start: 11-05-2024 End: 11-06-2024 Evaluation and management of inpatient Kenyetta Suarez Facility:[facility] Start: 11-05-2024 End: 11-05-2024 Telephone encounter Leticia Hylton DO Work Phone: Gastroenterology Comment on above: Patient states vignesh tinajero major issues Start: 11-03-2024 End: 11-04-2024 Emergency department patient visit Sergey Islas Facility:[facility] Start: 10-18-2024 End: 10-21-2024 ambulatory Ramya Lombardo Facility:[facility] Start: 10-02-2024 End: 10-10-2024 Telephone encounter Jessica Guerrero APRN.CNP Work Phone: Endocrinology Comment on above: Forms Start: 09-02-2024 End: 09-02-2024 Emergency department patient visit No Primary Care Physician Facility:[facility] Start: 09-02-2024 End: 09-02-2024 ambulatory Leticia Hylton DO Work Phone: Gastroenterology Comment on above: Chronic idiopathic c onstipation (Primary Dx); Gastroparesis Start: 09-02-2024 End: 09-02-2024 Telemedicine consultation with patient Leticia Hylton DO Work Phone: Gastroenterology Start: 08-07-2024 End: 08-07-2024 Telephone encounter Manasa Cantu PA-C Work Phone: [facility] [employer] Comment on above: Prior Authorization (Skyrizi renewal) Start: 08-02-2024 ambulatory Vamsi Duvall Facili ty:[facility] Start: 08-02-2024 End: 08-03-2024 Evaluation and management of inpatient Vamsi Duvall Facility:[facility] Start: 08-01-2024 End: 08-01-2024 Emergency department patient visit Olvin Ibarra Facility:[facility] Start: 2024 End: 08-06-2024 ambulatory Edie Bear Facility:[facility] Start: 07-23-2024 End: 07-23-2024 ambulatory KVNG CORRIGANENS Facility:[facility] Start: 07-23-2024 End: 07-23-2024 Nursing evaluation [...] Phone: Endocrinology Start: 07-11-2024 End: 07-27-2024 ambulatory [facility] Facility:[facility] Start: 07-10-2024 End: 07-10-2024 ambulatory [facility] Facility:[facility] Start: 07-10-2024 End: 07-10-2024 ambulatory [facility] Facility:[facility] Start: 07-10-2024 End: 07-10-2024 Patient encounter [...] encounter status Jason Paredes MD Work Phone: [facility] Start: 06-28-2024 End: 07-05-2024 ambulatory [facility] Facility:[facility] Start: 06-24-2024 End: 06-25-2024 Telephone encounter Jessica Guerrero APRN.CNP Work Phone: Internal Medicine [place] Comment on above: diabetic supplies Start: 06-17-2024 End: 06-17-2024 Telephone encounter Kvng Lewis MD Work Phone: Endocrinology Comment on above: Forms Start: 06-07-2024 ambulatory Ileana Lobo [facility] Start: 06-07-2024 End: 06-11-2024 Evaluation and management of inpatient Ileana Lobo Facility:[facility] Start: 05-28-2024 End: 06-27-2024 ambulatory Edie Bear Facility:[facility] Start: 05-21-2024 End: 05-27-2024 ambulatory [facility] Facility:[facility] Start: 05-16-2024 End: 05-24-2024 Telephone encounter Jessica Boyd POT MAKER.FORESTRY TECHNICAL OFFICER Work Phone: Endocrinology Comment on above: insulin pump Start: 05-06-2024 End: 05-06-2024 Telephone encounter Leesa CASANOVA-C Work Phone: [facility] Dermatology Comment on above: Prior Authorization (Rayray renewal) Start: 04-21-2024 End: 04-21-2024 Emergency department patient visit Marc Carl Facility:[facility] Start: 04-16-2024 End: 04-16-2024 Refill Leesa Woodsonel PA-C Work Phone: [facility] Dermat[facility] Start: 04-08-2024 Refill Jessica Boyd POT MAKER.FORESTRY TECHNICAL OFFICER Work Phone: Internal Medicine [place] Comment on above: Refill Request Start: 03-12-2024 End: 03-12-2024 ambulatory VIVI LETY SMITH Facility:[facility] Start: 03-12-2024 End: 03-12-2024 Patient encounter [...] Telephone encounter Leesa Huddleston PA-C Work Phone: [facility] Dermatology Comment on above: Medication Problem ( Skyrizi) Start: 12-15-2023 ambulatory Kyara Wu [employer] Comment on above: Primary Care Coordin ator Chronic Care Start: 12-13-2023 End: 12-13-2023 ambulatory PRASADAngel SMITH Facility:[facility] Start: 12-13-2023 End: 12-13-2023 Patient encounter procedure Jessica Guerrero APRN.CNP Work Phone: Endocrinology Comment on above: Type 1 diabetes kasi itus with hyperglycemia, with long-term current use of insulin (HCC) (Primary Dx); Insulin pump status Start: 12-07-2023 End: 12-07-2023 Emergency department patient visit No Primary Care Physician [facility] Work Phone: Start: 11-14-2023 End: 11-14-2023 Office outpatient visit 15 minutes Leesa Huddleston PA-C Work Phone: [facility] Dermatology Comment on above: Psoriasis vulgaris ( Primary Dx); Multiple benign nevi Start: 11-10-2023 Patient Outreach Kyara Wu Dye Box Operator Comment on above: Transition Of Care Start: 11-03-2023 Patient Outreach Kyara Wu Dye Box Operator Comment on above: Transition Of Care Start: 10-27-2023 Patient Outreach Kyara Wu Dye Box Operator Comment on above: Transition Of Care Start: 10-25-2023 End: 10-25-2023 Emergency department patient visit No Primary Care Physician [facility] Work Phone: Start: 10-20-2023 Patient Outreach Kyara Wu Dye Box Operator Comment on above: Transition Of Care Start: 10-19-2023 Patient Outreach Kyara garza RN [facility] Dye Box Operator Comment on above: Transition Of Care ( Message) Start: 10-18-2023 Non-patient / Non-visit No [facility] Physician [facility] Work Phone: Start: 10-17-2023 End: 10-18-2023 Evaluation and management of inpatient No Primary Care Physician [facility] Work Phone: Start: 10-12-2023 ambulatory Kyara norris RN [facility] Dye Box Operator Comment on above: Primary Care Coordin ator Chronic Care Start: 10-02-2023 Telephone encounter Kvng Brink MD Work Phone: Endocrinology Comment on above: Forms (DME: [employer] for pump supplies) Start: 09-29-2023 ambulatory Kyara norris RN [facility] Dye Box Operator Comment on above: Primary Care Coordin ator Chronic Care Start: 09-25-2023 End: 09-25-2023 Emergency department patient visit No Primary Care Physician [facility] Work Phone: Start: 09-24-2023 End: 09-24-2023 Emergency department patient visit No Primary Care Physician [facility] Work Phone: Start: 09-21-2023 Refill Vivi Smith MD Work Phone: Internal Medicine [place] Comment on above: Refill Request Start: 09-20-2023 End: 09-20-2023 Emergency department patient visit No Primary Care Physician [facility] Work Phone: Start: 09-06-2023 End: 09-06-2023 Emergency department patient visit No Primary Care Physician [facility] Work Phone: Start: 08-22-2023 End: 08-22-2023 Emergency department [facility] Start: 08-17-2023 Telephone encounter Leesa Huddleston PA-C Work Phone: [facility] Dermatology Start: 08-15-2023 Patient Outreach Kyara garza RN [facility] Dye Box Operator Comment on above: Transition Of Care Start: 08-10-2023 Non-patient / Non-visit No [facility] Physician [facility] Work Phone: Start: 08-09-2023 Non-patient / Non-visit No [facility] Inpatient Physicians Work Phone: Start: 08-08-2023 Non-patient / Non-visit No [facility] Physician [facility] Work Phone: Start: 08-07-2023 End: 08-10-2023 Evaluation and management of inpatient No Primary Care Physician [facility] Work Phone: Start: 08-06-2023 End: 08-06-2023 Emergency department patient visit No Primary Care Physician [facility] Work Phone: Start: 06-25-2023 End: 06-26-2023 Emergency department patient visit No Primary Care Physician [facility] Work Phone: Start: 06-25-2023 End: 06-25-2023 Emergency department patient visit No Primary Care Physician [facility] Work Phone: Start: 05-31-2023 End: 05-31-2023 Patient encounter procedure Jessica Guerrero APRN.FORESTRY TECHNICAL OFFICER Work Phone: Endocrinology Comment on above: Type 1 diabetes kasi itus with hyperglycemia, with long-term current use of insulin (HCC) (Primary Dx); Insulin pump status Start: 05-03-2023 End: 05-03-2023 Emergency department patient visit No Primary Care Physician [facility] Work Phone: Start: 05-02-2023 Refill Leesa swain PA-C Work Phone: [facility] Dermatology Comment on above: Psoriasis vulgaris ( Primary Dx) Start: 04-29-2023 Non-patient / Non-visit No [facility] Physician [facility] Work Phone: Start: 04-28-2023 Non-patient / Non-visit No [facility] Physician [facility] Work Phone: Start: 04-27-2023 Non-patient / Non-visit No [facility] Physician [facility] Work Phone: Start: 04-27-2023 End: 04-29-2023 Evaluation and management of inpatient [facility] Work Phone: Start: 04-27-2023 End: 04-29-2023 observation encounter No Primary Care Physician [facility] Work Phone: Start: 04-26-2023 End: 04-26-2023 Emergency department patient visit [facility] Work Phone: Start: 04-23-2023 End: 04-23-2023 Emergency department patient visit [facility] Work Phone: Start: 04-06-2023 End: 04-06-2023 Emergency department patient visit VIVI SMITH Facility:[id number] Start: 03-20-2023 End: 03-22-2023 [facility] Start: 03-20-2023 End: 03-22-2023 Emergency department patient visit Mariel Gagnon MD [facility] Start: 02-15-2023 Patient encounter procedure [facility] Provider [facility] Department Start: 02-08-2023 Patient Outreach Kyara garza RN [facility] Dye Box Operator Comment on above: Transition Of Care Start: 02-01-2023 Telephone encounter Vivi Smith MD Work Phone: [facility] [place] Primary Comment on above: Results Start: 01-31-2023 End: 02-04-2023 Evaluation and management of inpatient VIVI SMITH Facility:[id number] Start: 01-25-2023 End: 01-25-2023 ambulatory VIVI SMITH Facility:[id number] Start: 01-25-2023 End: 01-25-2023 Patient encounter procedure Autumn Valadez POT MAKER.FORESTRY TECHNICAL OFFICER Work Phone: Endocrinology Comment on above: Type 1 diabetes kasi itus with hyperglycemia, with long-term current use of insulin (HCC) (Primary Dx); Insulin pump status; Screening for diabetic retinopathy Start: 01-25-2023 End: 01-25-2023 Nursing evaluation of patient and report Nurse [facility] [place] Work Phone: [facility] Primary Comment on above: Left flank pain (Elaine ten Dx); Dysuria Start: 01-24-2023 Telephone encounter Vivi Smith MD Work Phone: [facility] Primary Comment on above: Orders Results Appointment Start: 01-20-2023 End: 01-20-2023 ambulatory VIVI SMITH Facility:[id number] Start: 01-12-2023 End: 01-13-2023 ambulatory MADONNA TORO Facility:[id number] Start: 01-09-2023 E-mail encounter fro m caregiver Phoebe Mckeon POT MAKER.FORESTRY TECHNICAL OFFICER Work Phone: [facility] Start: 01-09-2023 Patient encounter procedure Phoebe Rober Mckeon POT MAKER.FORESTRY TECHNICAL OFFICER Work Phone: Obstetrics and Gynecology Comment on above: Request an Appointme nt Start: 01-03-2023 Telephone encounter Kvng Brink MD Work Phone: Endocrinology Comment on above: Forms Start: 12-09-2022 Telephone encounter Vivi Smith MD Work Phone: [facility] Primary Comment on above: Patient Question Start: 12-08-2022 End: 12-08-2022 Office outpatient new 30 minutes Vivi Smith MD Work Phone: [facility] Primary Comment on above: Gastroparesis due to DM (HCC) (Primary Dx); Aortic root aneurysm (HCC); Primary hypertension; Chronic nausea; 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); Marfan syndrome; PTSD (post-traumatic stress disorder); Generalized abdominal pain Start: 11-07-2022 End: 11-07-2022 Patient encounter procedure Abelardo La MD Work Phone: [facility] Comment on above: Viral conjunctivitis (Primary Dx) Start: 11-04-2022 Refill Leesa swain PA-C Work Phone: [facility] Start: 11-02-2022 Telephone encounter Kvng Brink MD Work Phone: Endocrinology Comment on above: Forms Start: 10-31-2022 Telephone encounter Kvng Brink MD Work Phone: Endocrinology Comment on above: Insurance Authorizat ion; Forms Start: 10-22-2022 End: 10-22-2022 Patient encounter procedure Abelardo La MD Work Phone: [facility] Comment on above: Lower abdominal pain (Primary Dx) Start: 10-04-2022 End: 10-04-2022 Office outpatient visit 25 minutes Leesa Huddleston PA-C Work Phone: Dermatology [facility] Comment on above: Psoriasis vulgaris ( Primary Dx); Folliculitis; Encounter for long-term current use of high risk medication; Screening for viral disease Start: 09-19-2022 End: 09-19-2022 ambulatory Injection/Port [facility] Comment on above: Type 1 diabetes kasi itus with other specified complication (HCC) (Primary Dx) Start: 09-06-2022 Telephone encounter Autumn peralta APRN.FORESTRY TECHNICAL OFFICER Work Phone: Endocrinology Comment on above: Medication Problem Start: 08-16-2022 End: 08-16-2022 Patient encounter procedure Autumn Valadez APRN.FORESTRY TECHNICAL OFFICER Work Phone: Endocrinology Comment on above: Type 1 diabetes kasi itus with hyperglycemia, with long-term current use of insulin (HCC) (Primary Dx); Insulin pump status Start: 08-05-2022 End: 08-05-2022 ambulatory Injection/Port [facility] Comment on above: Type 1 [...] patient Kvng Lewis MD Work Phone: [facility] Start: 07-06-2022 Telephone encounter Kvng Brink MD Work Phone: Endocrinology Comment on above: Appointment Start: 06-13-2022 Telephone encounter Tawanda soto DO Work Phone: Endocrinology Comment on above: Rodrigue EMMANUELN for insu bill pump/pump supplies Start: 06-07-2022 End: 06-07-2022 Patient encounter procedure Phoebe Mckeon POT MAKER.FORESTRY TECHNICAL OFFICER Work Phone: Obstetrics and Gynecology Comment on above: Gonorrhea (Primary D x); Screen for sexually transmitted diseases Start: 06-07-2022 Telephone encounter Cyndy walker MD Work Phone: Endocrinology Comment on above: Forms ([facility]) Start: 05-13-2022 ambulatory Tawanda Khoury DO Work Phone: Endocrinology Comment on above: Pump Data/30 day glu cose logs Start: 05-13-2022 E-mail encounter fro m caregiver Tawanda Khoury DO Work Phone: [facility] Start: 05-12-2022 End: 05-12-2022 Nursing evaluation of patient and report Nurse Medical Review Coordinator [facility] Work Phone: Obstetrics and Gynecology Comment on above: Gonorrhea (Primary D x) Start: 05-10-2022 ambulatory Phoebe Mcguire rday POT MAKER.FORESTRY TECHNICAL OFFICER Work Phone: Obstetrics and Gynecology Comment on above: Question regarding S YPHILIS TOTAL W/REFLEX Start: 05-10-2022 Telephone encounter Phoebe conde POT MAKER.FORESTRY TECHNICAL OFFICER Work Phone: Obstetrics and Gynecology Comment on above: Results; Orders Start: 05-02-2022 Refill Tawanda Khoury DO Work Phone: Endocrinology Comment on above: Refill Request Refill Request (Darcy ess) Start: 04-18-2022 End: 04-18-2022 Patient encounter procedure Dashawn Cain POT MAKER.FORESTRY TECHNICAL OFFICER Work Phone: [facility] Comment on above: Menstrual irregulari ty (Primary Dx); Screening for STD (sexually transmitted disease); Chronic nausea Start: 03-11-2022 End: 03-11-2022 ambulatory Chair 9 [facility] [place] Comment on above: Type 1 diabetes kasi itus with other specified complication (HCC) (Primary Dx) Start: 03-10-2022 Refill Dashawn Cain POT MAKER.FORESTRY TECHNICAL OFFICER Work Phone: [facility] Start: 03-07-2022 End: 03-07-2022 ambulatory Injection/Port [facility] Comment on above: Type 1 diabetes kasi itus with other specified complication (HCC) (Primary Dx) Start: 03-01-2022 Chart abstracting Jayjay cobb MD Work Phone: Infusion Center Start: 01-29-2022 End: 01-29-2022 Subsequent hospital visit by physician Sourav Butts MD Work Phone: [facility] Comment on above: DKA,TYPE 1 Start: 01-27-2022 End: 01-27-2022 Subsequent hospital visit by physician Dashawn Cain APRN.FORESTRY TECHNICAL OFFICER Work Phone: [facility] Comment on [...] Emergency department patient visit ANITA COMER MD [facility] Start: 12-27-2021 End: 12-27-2021 Subsequent hospital [...] Emergency department patient visit [facility] Start: 12-05-2014 Patient encounter status [facility] [...] 12-13-2023 Hemoglobin A1c/Hemoglobin.total in Blood Jessica Greener POT MAKER.FORESTRY TECHNICAL OFFICER Work Phone: Start: 09-24-2023 Plain chest X-ray [...] 05-31-2023 Hemoglobin A1c/Hemoglobin.total in Blood Jessica Greener POT MAKER.FORESTRY TECHNICAL OFFICER Work Phone: Start: 04-28-2023 Urine culture No Primar y Care Physician Start: 04-26-2023 CT angiography of ch est with contrast Start: 04-23-2023 CT of thorax, abdome n and pelvis with contrast Start: 03-22-2023 Glucose measurement [facility] tammy Ireland MD Work Phone: Start: 03-22-2023 Glucose measurement Gabo Ireland MD Work Phone: Start: 03-22-2023 Glucose measurement aGbo Ireland MD Work Phone: Start: 03-22-2023 Basic [...] MD Work Phone: Start: 03-21-2023 Glucose measurement aGbo Ireland MD Work Phone: Start: 03-21-2023 Comprehensive metabolic panel Ernie Ireland MD Work Phone: Start: 03-20-2023 Glucose measurement Gabo tammy Ireland MD Work Phone: Start: 03-20-2023 Electrocardiogram marianna akila Ireland MD Work Phone: Start: 03-20-2023 Glucose measurement [facility] tammy Ireland MD Work Phone: Start: 03-20-2023 Ecg routine ecg w/le ast 12 lds w/i&r Siddharth Gagnon MD Work Phone: Start: 03-20-2023 Glucose measurement [facility] tammy Ireland MD Work Phone: [...] 01-25-2023 Hemoglobin A1c/Hemoglobin.total in Blood Autumn Valadez POT MAKER.FORESTRY TECHNICAL OFFICER Work Phone: Start: 01-25-2023 Urnls dip stick/tabl et rgnt auto w/o microscopy Vivi Smith MD Work Phone: Start: 08-16-2022 Hemoglobin A1c/Hemoglobin.total in Blood Autumn Valadez POT MAKER.FORESTRY TECHNICAL OFFICER Work Phone: Start: 05-10-2022 Microscopic observat ion [Identifier] in Cervix by Cyto stain Leesa Huddleston PA-C Work Phone: Start: 04-18-2022 Adult depression scr eening assessment Dashawn Cain POT MAKER.FORESTRY TECHNICAL OFFICER Work Phone: Start: 12-28-2021 Ecg routine ecg [...] for Adults (1 - 1-dose 75+ series) [facility] Start: 2054 RSV Immunization aged 60 or older (1 - 1-dose 60+ series) RSV Immunization aged 60 or older (1 - 1-dose 60+ series) [facility] Start: 2044 Zoster Vaccines (1 of 2) Zoster Vaccines (1 of 2) [facility] Start: 07-10-2029 Screening for malignant neoplasm of cervix Cervical Cancer Screening [facility] Start: 07-10-2027 Screening for malignant neoplasm of cervix [facility] Start: 02-04-2026 End: 02-04-2026 Patient encounter procedure 02/04/2026 10:00 AM EDT Office Visit [facility] [address] [place] [phone] Mishel Ortez PA-C [address] [place], [place] [phone] [facility] Start: 11-11-2025 BP Controlled (<130/80) BP Controlled (<130/80) [facility] Start: 07-30-2025 End: 07-30-2025 Patient encounter procedure 07/30/2025 9:20 AM EST Office Visit [facility] Dermatology [facility] [address] [place] [phone] Mishel Oretz PA-C [address] [place], [place] [phone] [facility] Dermatology - [facility] Start: 07-14-2025 End: 07-14-2025 Patient encounter procedure 07/14/2025 10:30 AM EST Office Visit OB/Gynecology [address] [place], [place] [id number] Jason Paredes MD [address] [place] [address] Annual OB/Gynecology Comment on above: Annual Start: 07-10-2025 BP Controlled (<130/80) BP Controlled (<130/80) [facility] Start: 05-10-2025 PAP TESTING PAP TESTING [facility] Start: 05-10-2025 Screening for malignant neoplasm of cervix [facility] Start: 04-28-2025 Influenza vaccination Influenza Vaccine (Season Ended) [facility] Start: 03-12-2025 BP Controlled (<130/80) BP Controlled (<130/80) [facility] Start: 03-12-2025 Hemoglobin A1c measurement Diabetes: Hemoglobin A1C [facility] Start: 01-27-2025 End: 01-27-2026 CBC W Auto Differential panel - Blood CBC auto differential Lab Routine Encounter for long-term (current) use of medications Expected: 01/27/2025 (Approximate), Expires: 01/27/2026 [facility] System Work Phone: Comment on above: Expected: 01/27/2025 (Approximate), Expi res: 01/27/2026 Start: 01-27-2025 End: 01-27-2026 Comprehensive metabolic 1998 panel - Serum or Plasma Comprehensive metabolic panel Lab Routine Encounter for long-term (current) use of medications Expected: 01/27/2025 (Approximate), Expires: 01/27/2026 [facility] Comment on above: Expected: 01/27/2025 (Approximate), Expi res: 01/27/2026 Start: 01-27-2025 End: 01-27-2026 Hepatitis A virus IgM Ab [Presence] in Serum or Plasma by Immunoassay Hepatitis A antibody, IgM Lab Routine Screening for viral disease Encounter for long-term (current) use of medications Expected: 01/27/2025 (Approximate), Expires: 01/27/2026 [facility] Comment on above: Expected: 01/27/2025 (Approximate), Expi res: 01/27/2026 Start: 01-27-2025 End: 01-27-2026 Hepatitis B virus core IgM Ab [Presence] in Serum or Plasma by Immunoassay Hepatitis B core antibody, IgM Lab Routine Screening for viral disease Encounter for long-term (current) use of medications Expected: 01/27/2025 (Approximate), Expires: 01/27/2026 [facility] Comment on above: Expected: 01/27/2025 (Approximate), Expi res: 01/27/2026 Start: 01-27-2025 End: 01-27-2026 Hepatitis B virus surface Ab [Units/volume] in Serum or Plasma by Immunoassay Hepatitis B surface antibody Lab Routine Screening for viral disease Encounter for long-term (current) use of medications Expected: 01/27/2025 (Approximate), Expires: 01/27/2026 [facility] Comment on above: Expected: 01/27/2025 (Approximate), Expi res: 01/27/2026 Start: 01-27-2025 End: 01-27-2026 Hepatitis B virus surface Ag [Presence] in Serum or Plasma by Immunoassay Hepatitis B surface antigen Lab Routine Screening for viral disease Encounter for long-term (current) use of medications Expected: 01/27/2025 (Approximate), Expires: 01/27/2026 [facility] Comment on above: Expected: 01/27/2025 (Approximate), Expi res: 01/27/2026 Start: 01-27-2025 End: 01-27-2026 Hepatitis C virus Ab [Presence] in Serum or Plasma by Immunoassay Hepatitis C antibody Lab Routine Screening for viral disease Encounter for long-term (current) use of medications Expected: 01/27/2025 (Approximate), Expires: 01/27/2026 [facility] [employer] Comment on above: Expected: 01/27/2025 (Approximate), Expi res: 01/27/2026 Start: 01-27-2025 End: 01-27-2026 HIV 1+2 Ab+HIV1 p24 Ag [Presence] in Serum or Plasma by Immunoassay HIV-1 and HIV-2 Antigen-Antibody Screen Lab Routine Screening for viral disease Encounter for long-term (current) use of medications Expected: 01/27/2025 (Approximate), Expires: 01/27/2026 [facility] Comment on above: Expected: 01/27/2025 (Approximate), Expi res: 01/27/2026 Start: 01-27-2025 End: 01-27-2026 QUANTIFERON TB GOLD QUANTIFERON TB GOLD Lab Routine Encounter for screening for respiratory tuberculosis Encounter for long-term (current) use of medications Expected: 01/27/2025 (Approximate), Expires: 01/27/2026 [facility] Comment on above: Expected: 01/27/2025 (Approximate), Expi res: 01/27/2026 Start: 01-27-2025 End: 01-27-2025 Patient encounter procedure 01/27/2025 1:00 PM EDT Office Visit [facility] [address] [place] [phone] Mishel Ortez PA-C [address] [place] [address] [facility] [employer] Start: 01-06-2025 End: 01-06-2025 Patient encounter procedure 01/06/2025 1:00 PM EDT Office Visit [facility] [address] [place] [phone] Gardenia Reyes PA-C [address] [place] [address] [facility] [employer] Start: 12-12-2024 Hemoglobin A1c measurement Diabetes: Hemoglobin A1C [facility] Start: 11-11-2024 End: 11-11-2024 Patient encounter procedure 11/11/2024 10:30 AM EDT Office Visit Gastroenterology [facility] [address] [place] [address] Leticia Hylton, [facility] [address] [place] [address] eating issues/gp Gastroenterology Comment on above: eating issues/gp Start: 09-12-2024 BP Controlled (<130/80) BP Controlled (<130/80) Terry in Start: 09-12-2024 Hemoglobin A1c measurement [facility] Start: 09-03-2024 End: 09-03-2024 Patient encounter procedure 09/03/2024 11:30 AM EST Office Visit Endocrinology [address] [place], [place] [phone] Jessica Guerrero APRN.FORESTRY TECHNICAL OFFICER [address] [place], [place] [phone] 6 month follow up Endocrinology Comment on above: 6 month follow up Start: 09-02-2024 End: 09-02-2024 ambulatory 09/02/2024 9:30 AM EST [facility] Gastro[facility] [address] [place] [address] Leticia Hylton DO [address] [place] [address] gp f/u Gastroenterology Comment on above: gp f/u Start: 08-28-2024 Medicare Advantage Annual Wellness Visit Medicare Advantage Annual Wellness Visit [facility] Start: 08-15-2024 Diabetes: Estimated Glomerular Filtration Rate for Kidney Health Diabetes: Estimated Glomerular Filtration Rate for Kidney Health [facility] [employer] Start: 08-06-2024 End: 08-06-2024 Patient encounter procedure [facility] Dermatology Start: 2024 Screening for malignant neoplasm of cervix HPV/Cotest [facility] Start: 07-23-2024 End: 07-23-2024 Nursing evaluation of patient and report 07/23/2024 9:00 AM EST Nurse Visit Endocrinology [address] [place] [address] Vamsi Carson, RN [address] [id number] Type 1 diabetes mellitus with hyperglycemia, with [...] Insulin pump status Expected: 07/19/2024, Expires: 10/18/2024 [facility] Work Phone: Comment on above: Expected: 07/19/2024, Expires: Start: 07-19-2024 End: 10-18-2024 Hemoglobin A1c in Blood HEMOGLOBIN A1C Lab Routine Type 1 diabetes mellitus with hyperglycemia, with long-term current use of insulin (HCC) Insulin pump status Expected: 07/19/2024, Expires: 10/18/2024 [facility] Comment on above: Expected: 07/19/2024, Expires: Start: 07-19-2024 End: 10-18-2024 Lipid 1996 panel - Serum or Plasma LIPID PANEL BASIC Lab Routine Type 1 diabetes mellitus with hyperglycemia, with long-term current use of insulin ([facility]) Insulin pump status Expected: 07/19/2024, Expires: 10/18/2024 [facility] Comment on above: Expected: 07/19/2024, Expires: Start: 07-19-2024 End: 10-18-2024 Microalbumin/Creatinine [Mass Ratio] in Urine ALBUMIN/CREATININE RATIO, URINE Lab Routine Type 1 diabetes mellitus with hyperglycemia, with long-term current use of insulin ([facility]) Insulin pump status Expected: 07/19/2024, Expires: 10/18/2024 [facility] Comment on above: Expected: 07/19/2024, Expires: Start: 07-19-2024 End: 07-19-2024 ambulatory 07/19/2024 1:30 PM [facility] Endocrinology [address] [place] [address] Jessica Guerrero APRN.FORESTRY TECHNICAL OFFICER [address] [place] [address] follw up Endocrinology Comment on above: follw up Start: 07-10-2024 End: 10-09-2024 Hepatitis C virus RNA [Units/volume] (viral load) in Serum or Plasma by DANIEL with probe detection [facility] Comment on above: Expected: 07/10/2024, Expires: Start: 07-10-2024 End: 10-09-2024 HIV 1+2 Ab [Presence] in Serum or Plasma by Immunoassay [facility] Work Phone: Comment on above: Expected: 07/10/2024, Expires: Start: 07-10-2024 End: 10-09-2024 SYPHILIS TREPONEMAL W/REFLEX [facility] Comment on above: Expected: 07/10/2024, Expires: Start: 07-10-2024 End: 10-09-2024 Thyrotropin [Units/volume] in Serum or Plasma [facility] Comment on above: Expected: 07/10/2024, Expires: Start: 07-10-2024 End: 07-10-2024 Patient encounter procedure 07/10/2024 11:10 AM EST Office Visit OB/Gynecology [address] [place] [address] Jason Paredes MD [address] [place] [id number] Annual/ Referral in Scan Doc OB/Gynecology Comment on above: Annual/ Referral in Scan Doc Start: 06-13-2024 End: 06-13-2024 Patient encounter procedure 06/13/2024 3:00 PM EDT Office Visit Endocrinology [address] [place] [address] Jessica Guerrero, POT MAKER.FORESTRY TECHNICAL OFFICER [address] [facility] [place] [address] 6 month follow up Endocrinology Comment on above: 6 month follow up Start: 06-13-2024 Hemoglobin A1c measurement HbA1C [facility] Start: 06-12-2024 Hemoglobin A1c measurement HbA1C [facility] Start: 05-31-2024 BP Controlled (<130/80) BP Controlled (<130/80) [facility] Start: 05-31-2024 Hemoglobin A1c measurement Diabetes: Hemoglobin A1C [facility] Start: 05-28-2024 End: 05-28-2024 Patient encounter procedure 05/28/2024 11:30 AM EDT Office Visit Endocrinology [address] [facility] [address] [place] [address] Jessica Guerrero, POT MAKER.FORESTRY TECHNICAL OFFICER [address] [facility] [address] [place] [address] 2-3 month f/u Endocrinology Comment on above: 2-3 month f/u Start: 04-28-2024 COVID-19 Vaccine ( season) COVID-19 Vaccine () [facility] Start: 04-28-2024 Covid-19 Vaccine () Covid-19 Vaccine () [facility] Start: 04-28-2024 Influenza vaccination [facility] Start: 04-16-2024 DTaP/Tdap/Td Vaccines (3 - Td or Tdap) DTaP/Tdap/Td Vaccines (3 - Td or Tdap) [facility] Start: 04-16-2024 Urine microalbumin profile [facility] Start: 03-12-2024 Hemoglobin A1c measurement HbA1C [facility] Start: 03-12-2024 End: 03-12-2024 Patient encounter procedure 03/12/2024 2:00 PM EDT Office Visit Endocrinology [address] [place] [address] Kvng Lewis MD [address] [place] [address] follow up Endocrinology Comment on above: follow up Start: 02-08-2024 BP CONTROLLED (<130/80) BP CONTROLLED (<130/80) [facility] Start: 02-01-2024 End: 02-01-2024 Patient encounter procedure 02/01/2024 10:00 AM EDT Office Visit [facility] Dermatology [address] [place] [id number] Leesa Huddleston PA-C [address] [place] [address] [facility] Start: 01-26-2024 BP CONTROLLED (<130/80) BP CONTROLLED (<130/80) [facility] Start: 01-21-2024 ANNUAL PCP TEAM CHRONIC DISEASE VISIT ANNUAL PCP TEAM CHRONIC DISEASE VISIT [facility] Start: 01-21-2024 BP CONTROLLED (<130/80) BP CONTROLLED (<130/80) [facility] Start: 12-09-2023 ANNUAL PCP TEAM CHRONIC DISEASE VISIT ANNUAL PCP TEAM CHRONIC DISEASE VISIT [facility] Start: 11-30-2023 Hemoglobin A1c measurement HbA1C [facility] Start: 11-30-2023 Hemoglobin A1c/Hemoglobin.total in Blood HbA1C [facility] Start: 11-14-2023 End: 11-14-2023 Patient encounter procedure 11/14/2023 10:20 AM EDT Office Visit [facility] Dermatology [address] [place] [address] Leesa Huddleston PA-C [address] [place] [address] [facility] Start: 11-08-2023 BP CONTROLLED (<130/80) BP CONTROLLED (<130/80) [facility] Start: 10-25-2023 [facility] Start: 10-25-2023 Suicide precautions [facility] Start: 10-18-2023 Patient discharge [facility] Start: 10-17-2023 [facility] Start: 10-17-2023 Venous catheter care management [facility] Start: 10-17-2023 Assessment of risk of venous thromboembolism [facility] Start: 10-17-2023 Continuous pulse oximetry [facility] Start: 10-17-2023 Insertion of catheter into peripheral vein [facility] Start: 10-17-2023 Measuring intake and output [facility] Start: 10-17-2023 Notification of physician [facility] Start: 10-17-2023 Patient education [facility] Start: 10-17-2023 Patient referral to dietitian [facility] Start: 10-17-2023 Providing care according to standard [facility] Start: 10-17-2023 Referral to occupational therapist [facility] Start: 10-17-2023 Referral to service [facility] Start: 10-17-2023 Vital signs measurements [facility] Start: 10-17-2023 [facility] Start: 10-17-2023 Verification routine [facility] Start: 10-17-2023 Admission procedure [facility] Start: 10-17-2023 Hospital admission, emergency, from emergency room, medical nature [facility] Start: 10-17-2023 [facility] Start: 09-25-2023 Venous catheter care management [facility] Start: 09-25-2023 [facility] Start: 09-20-2023 [facility] Start: 09-06-2023 Venous catheter care management [facility] Start: 09-06-2023 [facility] Start: 08-28-2023 Behavioral Health Screening Behavioral Health Screening [facility] Start: 08-28-2023 Depression Assessment Depression Assessment [facility] Start: 08-28-2023 Medicare Advantage Annual Wellness Visit Medicare Advantage Annual Wellness Visit [facility] Start: 08-22-2023 [facility] Start: 08-22-2023 [facility] Start: 08-22-2023 Venous catheter care management [facility] Start: 08-16-2023 3 comp foot exam completed DIABETIC FOOT EXAM [facility] Start: 08-16-2023 BP CONTROLLED (<130/80) BP CONTROLLED (<130/80) [facility] Start: 08-16-2023 Diabetic foot examination Diabetic Foot Exam [facility] Start: 08-15-2023 End: 08-15-2023 Patient encounter procedure [facility] Start: 08-10-2023 Patient discharge [facility] Start: 08-10-2023 End: 08-10-2023 [facility] Start: 08-09-2023 Care planning and problem solving actions [facility] Start: 08-09-2023 Provision of activity privileges [facility] Start: 08-08-2023 [facility] Start: 08-08-2023 Blood chemistry [facility] Start: 08-08-2023 [facility] Start: 08-07-2023 Care planning and problem solving actions [facility] Start: 08-07-2023 Blood chemistry [facility] Start: 08-07-2023 Blood chemistry [facility] Start: 08-07-2023 Care planning and problem solving actions [facility] Start: 08-07-2023 Blood chemistry [facility] Start: 08-07-2023 Blood chemistry [facility] Start: 08-07-2023 Acetone [Presence] in Serum or Plasma [facility] Start: 08-07-2023 Gas panel - Arterial blood [facility] Start: 08-07-2023 Blood chemistry [facility] Start: 08-07-2023 Application of intermittent pneumatic compression device [facility] Start: 08-07-2023 Enteric precautions [facility] Start: 08-07-2023 Following clinical pathway protocol [facility] Start: 08-07-2023 Hemoglobin A1c/Hemoglobin.total in Blood [facility] Start: 08-07-2023 Lab findings surveillance [facility] Start: 08-07-2023 Notification of physician [facility] Start: 08-07-2023 Patient education [facility] Start: 08-07-2023 Taking nasal swab [facility] Start: 08-07-2023 Vital signs measurements [facility] Start: 08-07-2023 [facility] Start: 08-07-2023 Aspiration precautions [facility] Start: 08-07-2023 Blood chemistry [facility] Start: 08-07-2023 Admission procedure [facility] Start: 08-06-2023 Venous catheter care management [facility] Start: 08-06-2023 Gas panel - Venous blood [facility] Start: 08-06-2023 [facility] Start: 08-06-2023 Venous catheter care management [facility] Start: 07-27-2023 Hemoglobin A1c/Hemoglobin.total in Blood HBA1C [facility] Start: 06-26-2023 Venous catheter care management [facility] Start: 06-26-2023 [facility] Start: 06-25-2023 End: 06-25-2023 [facility] Start: 06-07-2023 BP CONTROLLED (<130/80) BP CONTROLLED (<130/80) [facility] Start: 05-10-2023 BP CONTROLLED (<130/80) BP CONTROLLED (<130/80) [facility] Start: 05-06-2023 Blood chemistry [facility] Start: 05-05-2023 Blood chemistry [facility] Start: 05-04-2023 Blood chemistry [facility] Start: 05-03-2023 Venous catheter care management [facility] Start: 05-03-2023 Blood chemistry [facility] Start: 05-02-2023 Blood chemistry [facility] Start: 05-01-2023 Blood chemistry [facility] Start: 04-30-2023 Blood chemistry [facility] Start: 04-29-2023 Patient discharge [facility] Start: 04-29-2023 Venous catheter care management [facility] Start: 04-28-2023 Care regimes management [facility] Start: 04-28-2023 Notification of physician [facility] Start: 04-28-2023 End: 04-28-2023 [facility] Start: 04-28-2023 Covid-19 Vaccine () Covid-19 Vaccine () [facility] Start: 04-28-2023 Influenza vaccination [facility] Start: 04-28-2023 Urine culture Urine Culture [facility] Start: 04-28-2023 [facility] Start: 04-27-2023 Following clinical pathway protocol [facility] Start: 04-27-2023 Ambulation without limitation [facility] Start: 04-27-2023 Assessment of risk of venous thromboembolism [facility] Start: 04-27-2023 Insertion of catheter into peripheral vein [facility] Start: 04-27-2023 Providing care according to standard [facility] Start: 04-27-2023 [facility] Start: 04-27-2023 Verification routine [facility] Start: 04-27-2023 Admission procedure [facility] Start: 04-27-2023 [facility] Start: 04-27-2023 Venous catheter care management [facility] Start: 04-27-2023 Consultation [facility] Start: 04-27-2023 Patient referral to dietitian [facility] Start: 04-23-2023 Venous catheter care management [facility] Start: 04-18-2023 Adult depression screening assessment DEPRESSION SCREENING [facility] Start: 04-18-2023 ANNUAL PCP TEAM CHRONIC DISEASE VISIT ANNUAL PCP TEAM CHRONIC DISEASE VISIT [facility] Start: 04-18-2023 BP CONTROLLED (<130/80) BP CONTROLLED (<130/80) [facility] Start: 02-14-2023 Hemoglobin A1c/Hemoglobin.total in Blood HBA1C [facility] Start: 01-25-2023 End: 03-27-2023 ALBUMIN/CREAT RATIO RND UR ALBUMIN/CREAT RATIO RND UR Lab Routine Type 1 diabetes mellitus with hyperglycemia, with long-term current use of insulin (HCC) Expected: 01/25/2023, Expires: 03/27/2023 [facility] Work Phone: Comment on above: Expected: 01/25/2023, Expires: Start: 10-04-2022 End: 10-04-2023 CBC W Auto Differential panel - Blood CBC auto differential Lab Routine Psoriasis vulgaris Encounter for long-term current use of high risk medication Expected: 10/04/2022 (Approximate), Expires: 10/04/2023 [facility] Work Phone: Comment on above: Expected: 10/04/2022 (Approximate), Expi res: 10/04/2023 Start: 10-04-2022 End: 10-04-2023 Comprehensive metabolic 1998 panel - Serum or Plasma Comprehensive metabolic panel Lab Routine Psoriasis vulgaris Encounter for long-term current use of high risk medication Expected: 10/04/2022 (Approximate), Expires: 10/04/2023 [facility] Comment on above: Expected: 10/04/2022 (Approximate), Expi res: 10/04/2023 Start: 10-04-2022 End: 10-04-2023 Hepatitis A virus IgM Ab [Presence] in Serum or Plasma by Immunoassay Hepatitis A antibody, IgM Lab Routine Psoriasis vulgaris Encounter for long-term current use of high risk medication Screening for viral disease Expected: 10/04/2022 (Approximate), Expires: 10/04/2023 [facility] Comment on above: Expected: 10/04/2022 (Approximate), Expi res: 10/04/2023 Start: 10-04-2022 End: 10-04-2023 Hepatitis B virus core IgM Ab [Presence] in Serum or Plasma by Immunoassay Hepatitis B core antibody, IgM Lab Routine Psoriasis vulgaris Encounter for long-term current use of high risk medication Screening for viral disease Expected: 10/04/2022 (Approximate), Expires: 10/04/2023 [facility] Comment on above: Expected: 10/04/2022 (Approximate), Expi res: 10/04/2023 Start: 10-04-2022 End: 10-04-2023 Hepatitis B virus surface Ab [Units/volume] in Serum or Plasma by Immunoassay Hepatitis B surface antibody Lab Routine Psoriasis vulgaris Encounter for long-term current use of high risk medication Screening for viral disease Expected: 10/04/2022 (Approximate), Expires: 10/04/2023 [employer] Comment on above: Expected: 10/04/2022 (Approximate), Expi res: 10/04/2023 Start: 10-04-2022 End: 10-04-2023 Hepatitis B virus surface Ag [Presence] in Serum or Plasma by Immunoassay Hepatitis B surface antigen Lab Routine Psoriasis vulgaris Encounter for long-term current use of high risk medication Screening for viral disease Expected: 10/04/2022 (Approximate), Expires: 10/04/2023 [employer] Comment on above: Expected: 10/04/2022 (Approximate), Expi res: 10/04/2023 Start: 10-04-2022 End: 10-04-2023 Hepatitis C virus Ab [Presence] in Serum or Plasma by Immunoassay Hepatitis C antibody Lab Routine Psoriasis vulgaris Encounter for long-term current use of high risk medication Screening for viral disease Expected: 10/04/2022 (Approximate), Expires: 10/04/2023 [employer] Comment on above: Expected: 10/04/2022 (Approximate), Expi res: 10/04/2023 Start: 10-04-2022 End: 10-04-2023 HIV 1+2 Ab+HIV1 p24 Ag [Presence] in Serum or Plasma by Immunoassay HIV-1 and HIV-2 Antigen-Antibody Screen Lab Routine Psoriasis vulgaris Encounter for long-term current use of high risk medication Screening for viral disease Expected: 10/04/2022 (Approximate), Expires: 10/04/2023 [employer] Comment on above: Expected: 10/04/2022 (Approximate), Expi res: 10/04/2023 Start: 10-04-2022 End: 10-04-2023 QUANTIFERON TB GOLD QUANTIFERON TB GOLD Lab Routine Psoriasis vulgaris Encounter for long-term current use of high risk medication Expected: 10/04/2022 (Approximate), Expires: 10/04/2023 [employer] Comment on above: Expected: 10/04/2022 (Approximate), Expi res: 10/04/2023 Start: 08-28-2022 DEPRESSION ASSESSMENT DEPRESSION ASSESSMENT [facility] Start: 07-11-2022 End: 09-10-2022 Hemoglobin A1c in Blood HGB A1C Lab Routine Type 1 diabetes mellitus with hyperglycemia (HCC) Insulin pump status Expected: 07/11/2022, Expires: 09/10/2022 [facility] Work Phone: Comment on above: Expected: 07/11/2022, Expires: 3 Start: 07-11-2022 End: 09-10-2022 THYROID PEROXIDASE ANTIBODY BLOOD THYROID PEROXIDASE ANTIBODY BLOOD Lab Routine Type 1 diabetes mellitus with hyperglycemia (HCC) Insulin pump status Abnormal results of thyroid function studies Expected: 07/11/2022, Expires: 09/10/2022 [facility] Work Phone: Comment on above: Expected: 07/11/2022, Expires: 3 Start: 07-11-2022 End: 09-10-2022 Thyrotropin [Units/volume] in Serum or Plasma TSH BLD Lab Routine Type 1 diabetes mellitus with hyperglycemia (HCC) Insulin pump status Abnormal results of thyroid function studies Expected: 07/11/2022, Expires: 09/10/2022 [facility] Work Phone: Comment on above: Expected: 07/11/2022, Expires: 3 Start: 07-11-2022 End: 09-10-2022 Thyroxine (T4) free [Mass/volume] in Serum or Plasma T4 FREE/FREE THYROX Lab Routine Type 1 diabetes mellitus with hyperglycemia (HCC) Insulin pump status Abnormal results of thyroid function studies Expected: 07/11/2022, Expires: 09/10/2022 [facility] Work Phone: Comment on above: Expected: 07/11/2022, Expires: 3 Start: 07-02-2022 Hemoglobin A1c/Hemoglobin.total in Blood HBA1C [facility] Start: 04-28-2022 Influenza vaccination [facility] Start: 04-18-2022 End: 06-18-2022 Chlamydia trachomatis+Neisseria gonorrhoeae DNA [Presence] in Urine by DANIEL with probe detection GC/CHLAMYDIA AMPLIF, URINE Microbiology Routine Menstrual irregularity Screening for STD (sexually transmitted disease) Expected: 04/18/2022, Expires: 06/18/2022 [facility] Work Phone: Comment on above: Expected: 04/18/2022, Expires: 2 Start: 04-18-2022 End: 06-18-2022 Choriogonadotropin ( test) [Presence] in Urine HCG QUAL UR Lab Routine Menstrual irregularity Expected: 04/18/2022, Expires: 06/18/2022 [facility] Work Phone: Comment on above: Expected: 04/18/2022, Expires: 2 Start: 02-04-2022 Hepatitis B surface antibody level LDL CHOLESTEROL [facility] Start: 08-28-2021 DEPRESSION ASSESSMENT DEPRESSION ASSESSMENT [facility] Start: 05-27-2021 Hemoglobin A1c/Hemoglobin.total in Blood HBA1C [facility] Start: 12-23-2020 Glaucoma screening Dilated Retinal Exam [facility] Start: 12-23-2020 Hepatitis C antibody, confirmatory test DILATED RETINAL EXAM [facility] Start: 03-30-2019 PAP TESTING PAP TESTING [facility] Start: 03-21-2018 Diabetes: Urine Albumin-Creatinine Ratio for [facility] Diabetes: Urine Albumin-Creatinine Ratio for [facility] Start: 03-21-2018 Hepatitis B screening URINE ALBUMIN:CREATININE RATIO [facility] Start: 11-23-2016 Adult depression screening assessment DEPRESSION SCREENING [facility] Start: 11-12-2016 3 comp foot exam completed DIABETIC FOOT EXAM [facility] Start: 01-01-2014 PNEUMOCOCCAL (2 - PCV) PNEUMOCOCCAL (2 - PCV) [facility] Start: 01-01-2014 [facility] Start: 2013 HEPATITIS B (1 of 3 - Risk 3-dose series) HEPATITIS B (1 of 3 - Risk 3-dose series) [facility] Start: 2013 Hepatitis B Vaccine (1 of 3 - 19+ 3-dose series) Hepatitis B Vaccine (1 of 3 - 19+ 3-dose series) [facility] Start: 2013 Hepatitis B Vaccines (1 of 3 - 19+ 3-dose series) Hepatitis B Vaccines (1 of 3 - 19+ 3-dose series) [facility] Start: 2013 Urine screening for protein Diabetes: Urine Protein Screening [facility] Start: 12-11-2012 HPV Vaccine (3 - 3-dose series) HPV Vaccine (3 - 3-dose series) [facility] Start: 12-11-2012 HPV Vaccines (3 - 3-dose series) HPV Vaccines (3 - 3-dose series) [facility] Start: 11-06-2012 Hepatitis A Vaccines (2 of 2 - 2-dose series) Hepatitis A Vaccines (2 of 2 - 2-dose series) [facility] Start: 2012 ANNUAL PCP TEAM CHRONIC DISEASE VISIT ANNUAL PCP TEAM CHRONIC DISEASE VISIT [facility] Start: 2012 BP CONTROLLED (<130/80) BP CONTROLLED (<130/80) [facility] Start: 2012 Depression Screening Depression Screening [facility] Start: 2012 Diabetes: Urine Albumin-Creatinine Ratio for [facility] Diabetes: Urine Albumin-Creatinine Ratio for [facility] Start: 2012 Hepatitis B surface antibody level LDL CHOLESTEROL [facility] Start: 2007 Varicella vaccination Varicella Vaccines (1 of 2 - 13+ 2-dose series) [facility] Start: 2006 Depression Monitoring Depression Monitoring [facility] Start: 2006 Depression Screening Depression Screening [facility] Start: 2004 Diabetic foot examination Diabetes: Foot Exam [facility] Start: 2004 Glaucoma screening Diabetes: Retinopathy Screening [facility] Start: 2004 Preventive dental service Diabetes: Dental Exam [facility] Start: 2000 PNEUMOCOCCAL (1 - PCV) PNEUMOCOCCAL (1 - PCV) [facility] Start: 1999 COVID-19 VACCINE (#1) COVID-19 VACCINE (#1) [facility] Start: 1999 COVID-19 VACCINE (1) COVID-19 VACCINE (1) [facility] Start: 1995 MMR Vaccines (1 of 1 - Standard series) MMR Vaccines (1 of 1 - Standard series) [facility] Start: 1995 Varicella vaccination Varicella Vaccines (1 of 2 - 2-dose childhood series) [facility] [facility] Start: 01-27-1995 COVID-19 VACCINE (#1) COVID-19 VACCINE (#1) [facility] Start: 1994 Hemoglobin A1c measurement Diabetes: Hemoglobin A1C [facility]: 1994 HEPATITIS B (1 of 3 - 3-dose series) HEPATITIS B (1 of 3 - 3-dose series) [facility] Start: 1994 Hepatitis B Vaccine (1 of 3 - 3-dose series) Hepatitis B Vaccine (1 of 3 - 3-dose series) [facility] Start: 1994 Hepatitis B Vaccines (1 of 3 - 3-dose series) Hepatitis B Vaccines (1 of 3 - 3-dose series) [facility] Start: 1994 Lipid panel Lipid Panel [facility] Start: 1994 Medicare Advantage Annual Wellness Visit (AWV) Medicare Advantage Annual Wellness Visit (AWV) [facility] Anion gap measurement [facility] Anion gap measurement [facility] Anion gap measurement [facility] An[facility] gap measurement [facility] An[facility] gap measurement [facility] Anion gap measurement [facility] Anion gap measurement [facility] Anion gap measurement [facility] Anion gap measurement [facility] Anion gap measurement [facility] Anion gap measurement [facility] Anion gap measurement [facility] Anion gap measurement [facility] Anion gap measurement [facility] Bacteria identified in Urine by Culture URINE CULTURE Microbiology Routine Left flank pain Ordered: 01/25/2023 [facility] Work Phone: Comment on above: Ordered: 01/25/2023 BUN/Creatinine ratio [facility] BUN/Creatinine ratio [facility] BUN/Creatinine ratio [facility] BUN/Creatinine ratio [facility] BUN/Creatinine ratio [facility] BUN/Creatinine ratio [facility] BUN/Creatinine ratio [facility] B[facility]Creatinine [facility] BUN/Creatinine [facility] BUN/Creatinine [facility] BUN/Creatinine ratio [facility] BUN/Creatinine ratio [facility] Calcium [Mass/volume ] in Serum or Plasma [facility] Calcium [Mass/volume ] in Serum or Plasma [facility] Calcium [Mass/volume ] in Serum or Plasma [facility] Calcium [Mass/volume ] in Serum or Plasma [facility] Calcium [Mass/volume ] in Serum or Plasma [facility] Calcium [Mass/volume ] in Serum or Plasma [facility] Calcium [Mass/volume ] in Serum or Plasma [facility] Calcium [Mass/volume ] in Serum or Plasma [facility] Calcium [Mass/volume ] in Serum or Plasma [facility] Calcium [Mass/volume ] in Serum or Plasma [facility] Calcium [Mass/volume ] in Serum or Plasma [facility] Calcium [Mass/volume ] in Serum or Plasma [facility] Calcium [Mass/volume ] in Serum or Plasma [facility] Calcium [Mass/volume ] in Serum or Plasma [facility] Carbon dioxide, tota l [Moles/volume] in Serum or Plasma [facility] Carbon dioxide, tota l [Moles/volume] in Serum or Plasma [facility] Carbon dioxide, tota l [Moles/volume] in Serum or Plasma [facility] Carbon dioxide, tota l [Moles/volume] in Serum or Plasma [facility] Carbon dioxide, tota l [Moles/volume] in Serum or Plasma [facility] Carbon dioxide, tota l [Moles/volume] in Serum or Plasma [facility] Carbon dioxide, tota l [Moles/volume] in Serum or Plasma [facility] Carbon dioxide, tota l [Moles/volume] in Serum or Plasma [facility] Carbon dioxide, tota l [Moles/volume] in Serum or Plasma [facility] Carbon dioxide, tota l [Moles/volume] in Serum or Plasma [facility] Carbon dioxide, tota l [Moles/volume] in Serum or Plasma [facility] Carbon dioxide, tota l [Moles/volume] in Serum or Plasma [facility] Carbon dioxide, tota l [Moles/volume] in Serum or Plasma [facility] Carbon dioxide, tota l [Moles/volume] in Serum or Plasma [facility] Chlamydia trachomatis+Neisseria gonorrhoeae DNA [Presence] in Unspecified specimen by DANIEL with probe detection GC/CHLAMYDIA DNA DET Lab Routine Gonorrhea Screen for sexually transmitted diseases Ordered: 06/07/2022 [facility] Work Phone: Comment on above: Ordered: 06/07/2022 Chlamydia trachomatis+Neisseria gonorrhoeae DNA [Presence] in Unspecified specimen by DANIEL with probe detection GONORRHEA/CHLAMYDIA NAAT Lab Routine Encounter for gynecological examination (general) (routine) without abnormal findings Encounter for screening for malignant neoplasm of cervix Screening for human papillomavirus (HPV) Irregular menstrual bleeding Routine screening for STI (sexually transmitted infection) 07/10/2024 12:13 PM [facility] Chloride [Moles/volu me] in Serum or Plasma [facility] Chloride [Moles/volu me] in Serum or Plasma [facility] Chloride [Moles/volu me] in Serum or Plasma [facility] Chloride [Moles/volu me] in Serum or Plasma [facility] Chloride [Moles/volu me] in Serum or Plasma [facility] Chloride [Moles/volu me] in Serum or Plasma [facility] Chloride [Moles/volu me] in Serum or Plasma [facility] Chloride [Moles/volu me] in Serum or Plasma [facility] Chloride [Moles/volu me] in Serum or Plasma [facility] Chloride [Moles/volu me] in Serum or Plasma [facility] Chloride [Moles/volu me] in Serum or Plasma [facility] Chloride [Moles/volu me] in Serum or Plasma [facility] Chloride [Moles/volu me] in Serum or Plasma [facility] Chloride [Moles/volu me] in Serum or Plasma [facility] Clostridioides diffi cile DNA [Presence] in Unspecified specimen by DANIEL with probe detection [facility] Creatinine [Moles/vo lume] in Serum or Plasma [facility] Creatinine [Moles/vo lume] in Serum or Plasma [facility] Creatinine [Moles/vo lume] in Serum or Plasma [facility] Creatinine [Moles/vo lume] in Serum or Plasma [facility] Creatinine [Moles/vo lume] in Serum or Plasma [facility] Creatinine [Moles/vo lume] in Serum or Plasma [facility] Creatinine [Moles/vo lume] in Serum or Plasma [facility] Creatinine [Moles/vo lume] in Serum or Plasma [facility] Creatinine [Moles/vo lume] in Serum or Plasma [facility] Creatinine [Moles/vo lume] in Serum or Plasma [facility] Creatinine [Moles/vo lume] in Serum or Plasma [facility] Creatinine [Moles/vo lume] in Serum or Plasma [facility] Creatinine [Moles/vo lume] in Serum or Plasma [facility] Creatinine [Moles/vo lume] in Serum or Plasma [facility] Gastrointestinal pathogens panel - Stool by DANIEL with probe detection [facility] Glucose [Mass/volume ] in Serum or Plasma [facility] Glucose [Mass/volume ] in Serum or Plasma [facility] Glucose [Mass/volume ] in Serum or Plasma [facility] Glucose [Mass/volume ] in Serum or Plasma [facility] Glucose [Mass/volume ] in Serum or Plasma [facility] Glucose [Mass/volume ] in Serum or Plasma [facility] Glucose [Mass/volume ] in Serum or Plasma [facility] Glucose [Mass/volume ] in Serum or Plasma [facility] Glucose [Mass/volume ] in Serum or Plasma [facility] Glucose [Mass/volume ] in Serum or Plasma [facility] Glucose [Mass/volume ] in Serum or Plasma [facility] Glucose [Mass/volume ] in Serum or Plasma [facility] Glucose [Mass/volume ] in Serum or Plasma [facility] Glucose [Mass/volume ] in Serum or Plasma [facility] Hematocrit [Volume Fraction] of Blood [facility] Hematocrit [Volume Fraction] of Blood [facility] Hematocrit [Volume Fraction] of Blood [facility] Hematocrit [Volume Fraction] of Blood [facility] Hematocrit [Volume Fraction] of Blood [facility] Hematocrit [Volume Fraction] of Blood [facility] Hematocrit [Volume Fraction] of Blood [facility] Hemoglobin [Mass/vol ume] in Blood [facility] Hemoglobin [Mass/vol ume] in Blood [facility] Hemoglobin [Mass/vol ume] in Blood [facility] Hemoglobin [Mass/vol ume] in Blood [facility] Hemoglobin [Mass/vol ume] in Blood [facility] Hemoglobin [Mass/vol ume] in Blood [facility] Hemoglobin [Mass/vol ume] in Blood [facility] Hemoglobin A1c/Hemoglobin.total in Blood HEMOGLOBIN A1C (POC) Lab Routine Type 1 diabetes mellitus with hyperglycemia, with long-term current use of insulin (HCC) Ordered: 03/12/2024 [facility] Work Phone: Comment on above: Ordered: 03/12/2024 Lactoferrin [Presenc e] in Stool by Immunoassay [facility] Leukocytes [#/volume ] in Blood [facility] Leukocytes [#/volume ] in Blood [facility] Leukocytes [#/volume ] in Blood [facility] Leukocytes [#/volume ] in Blood [facility] Leukocytes [#/volume ] in Blood [facility] Leukocytes [#/volume ] in Blood [facility] Leukocytes [#/volume ] in Blood [facility] Magnesium [Mass/volu me] in Serum or Plasma [facility] Mean corpuscular hemoglobin concentration determination [facility] Mean corpuscular hemoglobin concentration determination [facility] Mean corpuscular hemoglobin concentration determination [facility] Mean corpuscular hemoglobin concentration determination [facility] Mean corpuscular hemoglobin concentration determination [facility] Mean corpuscular hemoglobin concentration determination [facility] Mean corpuscular hemoglobin concentration determination [facility] Mean corpuscular hemoglobin determination [facility] Mean corpuscular hemoglobin determination [facility] Mean corpuscular hemoglobin determination [facility] Mean corpuscular hemoglobin determination [facility] Mean corpuscular hemoglobin determination [facility] Mean corpuscular hemoglobin determination [facility] Mean corpuscular hemoglobin determination [facility] Measurement of renal function [facility] Measurement of renal function [facility] Measurement of renal function [facility] Measurement of renal function [facility] Measurement of renal function [facility] Measurement of renal function [facility] Measurement of renal function [facility] Measurement of renal function [facility] Measurement of renal function [facility] Measurement of renal function [facility] Measurement of renal function [facility] Measurement of renal function [facility] Measurement of renal function [facility] Measurement of renal function [facility] Neutrophil count [facility] Neutrophil count [facility] Neutrophil count [facility] Neutrophil count [facility] Neutrophil count [facility] Neutrophil count [facility] Neutrophil count [facility] Neutrophil percent differential count [facility] Neutrophil percent differential count [facility] Neutrophil percent differential count [facility] Neutrophil percent differential count [facility] Neutrophil percent differential count [facility] Neutrophil percent differential count [facility] Neutrophil percent differential count [facility] Ova and parasites identified in Unspecified specimen by Light microscopy [facility] PAP TEST PAP TEST Lab Rou amparo Encounter for screening for malignant neoplasm of cervix Screening for human papillomavirus (HPV) 07/10/2024 12:13 PM [facility] Patient Education [facility] Work Phone: Patient referral [facility] Work Phone: Platelets [#/volume] in Blood [facility] Platelets [#/volume] in Blood [facility] Platelets [#/volume] in Blood [facility] Platelets [#/volume] in Blood [facility] Platelets [#/volume] in Blood [facility] Platelets [#/volume] in Blood [facility] Platelets [#/volume] in Blood [facility] Potassium [Moles/vol ume] in Serum or Plasma [facility] Potassium [Moles/vol ume] in Serum or Plasma [facility] Potassium [Moles/vol ume] in Serum or Plasma [facility] Potassium [Moles/vol ume] in Serum or Plasma [facility] Potassium [Moles/vol ume] in Serum or Plasma [facility] Potassium [Moles/vol ume] in Serum or Plasma [facility] Potassium [Moles/vol ume] in Serum or Plasma [facility] Potassium [Moles/vol ume] in Serum or Plasma [facility] Potassium [Moles/vol ume] in Serum or Plasma [facility] Potassium [Moles/vol ume] in Serum or Plasma [facility] Potassium [Moles/vol ume] in Serum or Plasma [facility] Potassium [Moles/vol ume] in Serum or Plasma [facility] Potassium [Moles/vol ume] in Serum or Plasma [facility] Potassium [Moles/vol ume] in Serum or Plasma [facility] Red blood cell count [facility] Red blood cell count [facility] Red blood cell count [facility] Red blood cell count [facility] Red blood cell count [facility] Red blood cell count [facility] Red blood cell count [facility] Red cell distributio n width determination [facility] Red cell distributio n width determination [facility] Red cell distributio n width determination [facility] Red cell distributio n width determination [facility] Red cell distributio n width determination [facility] Red cell distributio n width determination [facility] Red cell distributio n width determination [facility] Respiratory pathogen s DNA and RNA panel - Respiratory specimen by DANIEL with probe detection [facility] Sodium [Moles/volume ] in Serum or Plasma [facility] Sodium [Moles/volume ] in Serum or Plasma [facility] Sodium [Moles/volume ] in Serum or Plasma [facility] Sodium [Moles/volume ] in Serum or Plasma [facility] Sodium [Moles/volume ] in Serum or Plasma [facility] Sodium [Moles/volume ] in Serum or Plasma [facility] Sodium [Moles/volume ] in Serum or Plasma [facility] Sodium [Moles/volume ] in Serum or Plasma [facility] Sodium [Moles/volume ] in Serum or Plasma [facility] Sodium [Moles/volume ] in Serum or Plasma [facility] Sodium [Moles/volume ] in Serum or Plasma [facility] Sodium [Moles/volume ] in Serum or Plasma [facility] Sodium [Moles/volume ] in Serum or Plasma [facility] Sodium [Moles/volume ] in Serum or Plasma [facility] T VAGINALIS AMPLIFICATION T VAGI NALIS AMPLIFICATION Lab Routine Screening for STD (sexually transmitted disease) Ordered: 04/18/2022 [facility] Work Phone: Comment on above: Ordered: 04/18/2022 TRICHOMONAS VAGINALI S NAAT TRICHOMONAS VAGINALIS NAAT Lab Routine Encounter for gynecological examination (general) (routine) without abnormal findings Encounter for screening for malignant neoplasm of cervix Screening for human papillomavirus (HPV) Irregular menstrual bleeding Routine screening for STI (sexually transmitted infection) 07/10/2024 12:13 PM EST [facility] Urea nitrogen [Mass/volume] in Serum or Plasma [facility] Urea nitrogen [Mass/volume] in Serum or Plasma [facility] Urea nitrogen [Mass/volume] in Serum or Plasma [facility] Urea nitrogen [Mass/volume] in Serum or Plasma [facility] Urea nitrogen [Mass/volume] in Serum or Plasma [facility] Urea nitrogen [Mass/volume] in Serum or Plasma [facility] Urea nitrogen [Mass/volume] in Serum or Plasma [facility] Urea nitrogen [Mass/volume] in Serum or Plasma [facility] Urea nitrogen [Mass/volume] in Serum or Plasma [facility] Urea nitrogen [Mass/volume] in Serum or Plasma [facility] Urea nitrogen [Mass/volume] in Serum or Plasma [facility] Urea nitrogen [Mass/volume] in Serum or Plasma [facility] Urea nitrogen [Mass/volume] in Serum or Plasma [facility] Urea nitrogen [Mass/volume] in Serum or Plasma [facility] Immunizations Immunization Date Immunization Notes Care Provider [facility] 11-05-2019 influenza, injectabl e, quadrivalent, preservative free Autumn Valadez [employer] Work Phone: [facility] Work Phone: 11-05-2019 influenza virus vacc ine, unspecified formulation Leesa Huddleston PA-C Work Phone: [facility] 06-14-2016 influenza, seasonal, injectable Autumn Valadez [employer] Work Phone: [facility] Work Phone: 05-30-2016 influenza nasal, unspecified formulation Autumn Rory [employer] Work Phone: [facility] Work Phone: 05-30-2016 influenza virus vacc ine, unspecified formulation ANITA COMER MD [facility] 06-05-2015 influenza, seasonal, injectable, preservative free Autumn Valadez [employer] Work Phone: [facility] Work Phone: 05-23-2014 influenza virus vacc ine, unspecified formulation Leesa Huddleston JOCELYNE-C Work Phone: [facility] 05-23-2014 influenza, seasonal, injectable [facility]cf Provider [facility] Work Phone: 04-16-2014 tetanus toxoid, redu luis eduardo diphtheria toxoid, and acellular pertussis vaccine, adsorbed [facility]cf Provider [facility] 01-01-2013 pneumococcal polysaccharide vaccine, 23 valent Autumn Valadez [employer] Work Phone: [facility] Work Phone: 08-11-2012 human papilloma viru s vaccine, quadrivalent Autumn Valadez [employer] Work Phone: [facility] Work Phone: 08-11-2012 HPV, unspecified formulation Leesatavares Huddleston JOCELYNE-Gilberto Work Phone: [facility] 06-12-2012 human papilloma viru s vaccine, quadrivalent Autumn Valadez [employer] Work Phone: [facility] Work Phone: 05-09-2012 hepatitis A vaccine, pediatric/adolescent dosage, 2 dose schedule Autumn Valadez APRN.[facility] Work Phone: [facility] Work Phone: 05-09-2012 hepatitis A and hepatitis B vaccine Leesatavares Huddleston JOCELYNE-Gilberto Work Phone: [facility] 11-03-2009 meningococcal polysaccharide (groups A, C, Y and W-135) diphtheria toxoid conjugate vaccine (MCV4P) Autumn Valadez APRN.[facility] Work Phone: [facility] Work Phone: 11-03-2009 tetanus toxoid, redu luis eduardo diphtheria toxoid, and acellular pertussis vaccine, adsorbed Autumn Valadez [employer] Work Phone: [facility] Work Phone: Payers Date Payer Category Payer Self-pay 2022 Medicare O JANIS JONESO MEDICARE [id number] 2019 Medicare (Managed Care) LOUISE WRIGHTDESTINY MEDICARE [id number] 2019 Medicare [id number] 2017 Medicaid [id number] 2017 Medicare [id number] 2017 Medicare [id number] 2012 Medicaid [id number] 1994 Unknown [id number] 2.16.840.1.223566.3.579.2. 903 Unknown [id number] 2.16840.1.369201.3.579.2. 462 Unknown [id number] 2.16840.1.909717.3.579.2. 462 Unknown [id number] 2.16.840.1.805636.3.579.2. 462 Unknown [id number] 2.840.1.483987.3.579.2. 462 Unknown [id number] 2.840.1.338600.3.579.2. 462 Unknown [id number] 2.840.1.797475.3.579.2. 462 Unknown [id number] 2.840.1.313809.3.579.2. 462 Unknown [id number] 2.840.1.464343.3.579.2. 462 Unknown [id number] 2.840.1.686837.3.579.2. 462 Unknown [id number] 2.840.1.417211.3.579.2. 462 Unknown [id number] 2.840.1.845494.3.579.2. 462 Unknown [id number] 2.840.1.284793.3.579.2. 462 Unknown [id number] 2.840.1.466614.3.579.2. 462 Unknown [id number] 2.840.1.040482.3.579.2. 462 Unknown [id number] 2.840.1.215086.3.579.2. 462 Unknown [id number] 2.840.1.823698.3.579.2. 462 Unknown [id number] 2.840.1.304183.3.579.2. 462 Unknown [id number] 2.840.1.362780.3.579.2. 462 Unknown [id number] 2.16.840.1.265771.3.579.2. 462 Unknown [id number] 2.16.840.1.886945.3.579.2. 462 Unknown [id number] 2.16.840.1.872095.3.579.2. 462 Unknown [id number] 2.16.840.1.775790.3.579.2. 462 Unknown [id number] 2.16.840.1.183758.3.579.2. 462 Unknown [id number] 2.16.840.1.673356.3.579.2. 462 Unknown [id number] 2.16.840.1.618309.3.579.2. 462 Unknown [id number] 2.16.840.1.291003.3.579.2. 462 Unknown [id number] 2.16.840.1.604445.3.579.2. 462 Unknown [id number] 2.16.840.1.966165.3.579.2. 462 Unknown [id number] 2.16.840.1.824902.3.579.2. 462 Unknown [id number] 2.16.840.1.459699.3.579.2. 462 Unknown [id number] 2.16.840.1.412862.3.579.2. 462 Unknown [id number] 2.16.840.1.340726.3.579.2. 462 Unknown [id number] 2.16.840.1.527956.3.579.2. 462 Unknown [id number] 2.16.840.1.811482.3.579.2. 462 Unknown [id number] 2.16.840.1.096938.3.579.2. 462 Unknown [id number] 2.16.840.1.583860.3.579.2. 462 Unknown [id number] 2.16.840.1.440174.3.579.2. 462 Unknown [id number] 2.840.1.639827.3.579.2. 462 Unknown [id number] 2.840.1.049734.3.579.2. 462 Unknown [id number] 2.840.1.985814.3.579.2. 462 Unknown [id number] 2.840.1.368644.3.579.2. 462 Unknown [id number] 2.840.1.665532.3.579.2. 462 Unknown [id number] 2.840.1.977923.3.579.2. 462 Unknown [id number]. 462 Unknown [id number] 2.840.1.984454.3.579.2. 462 Unknown [id number] 2.840.1.720435.3.579.2. 462 Unknown [id number] 2.840.1.128974.3.579.2. 462 Unknown [id number] 2.840.1.690360.3.579.2. 462 Unknown [id number] 2.840.1.935984.3.579.2. 462 Unknown [id number] 2.840.1.652956.3.579.2. 462 Unknown [id number] 2.840.1.261642.3.579.2. 462 Unknown [id number] 2.840.1.816905.3.579.2. 462 Unknown [id number] 2.840.1.544389.3.579.2. 462 Unknown [id number] 2.840.1.959540.3.579.2. 462 Unknown [id number] 2.840.1.318466.3.579.2. 462 Unknown [id number] 2.840.1.946089.3.579.2. 462 Unknown [id number] 2.16.840.1.099411.3.579.2. 462 Unknown [id number] 2.16.840.1.258113.3.579.2. 462 Social History Date Type Detail Facility Start: 12-31-2019 End: 07-10-2024 Tobacco smoking status NHIS Ex-smoker [facility] Start: 06-28-2011 End: 06-28-2019 History of tobacco use Current smoker [facility] Start: 06-28-2011 End: 06-28-2019 History of tobacco use Cigarette Smoker [facility] Start: 12-31-2019 End: 11-14-2023 Cigarettes smoked current (pack per day) - Reported 0.3 [facility] Start: 12-31-2019 End: 07-10-2024 Tobacco use and exposure Smokeless tobacco non-user [facility] Start: 11-25-2020 End: 10-22-2022 Alcohol intake Current non-drinker of alcohol (finding) [facility] Start: 11-02-2020 End: 02-03-2023 History SDOH Social Connections Phone 5 [facility] Start: 11-02-2020 End: 02-03-2023 History SDOH Social Connections Hindu 1 [facility] Start: 11-02-2020 End: 02-03-2023 History SDOH Social Connections Membership 2 [facility] Start: 11-02-2020 History SDOH Social Connections Living 7 [facility] Start: 11-02-2020 History SDOH Physica l Activity DPW 4 [facility] Start: 11-02-2020 History SDOH Physica l Activity MPS 3 [facility] Start: 1995 Sex Assigned At Female C [facility] Start: 04-26-2023 End: 08-07-2023 Tobacco smoking status Tobacco smoking consumption unknown (finding) [facility] Sex Assigned At Sex [facility] Start: 02-25-2022 End: 10-04-2022 Exposure to SARS-CoV-2 (event) Not sure [facility] Start: 12-08-2022 End: 07-19-2024 Alcohol intake Current drinker of alcohol (finding) [facility] Start: 12-08-2022 Education 13 [facility] Start: 12-08-2022 Alcohol Comment very rarely [facility] Start: 03-20-2023 [facility] Start: 03-20-2023 End: 11-14-2023 Tobacco use panel [facility] Start: 03-20-2023 Alcohol Comment occasional [facility] Start: 1995 Sex Assigned At Not on file S [facility] Start: 10-30-2020 Gender identity Identifies as female gender (finding) [facility] Start: 10-30-2020 Sexual orientation Bisexual (finding ) [facility] Start: 01-18-2021 End: 11-14-2023 Alcohol intake Ex-drinker (finding) [facility] Do you belong to any clubs or organizations such as hinduism groups, unions, fraternal or athletic groups, or school groups? No [facility] Are you now , , , , never or living with a partner? Never [facility] How hard is it for y ou to pay for the very basics like food, housing, medical care, and heating Not hard at all [facility] Do you feel stress - tense, restless, nervous, or anxious, or unable to sleep at night because your mind is troubled all the time - these days [OSQ] Not at all [facility] (I/We) worried wheth er (my/our) food would run out before (I/we) got money to buy more. Never true [facility] In the past 12 month s, was there a time when you were not able to pay the mortgage or rent on time? Yes [facility] Start: 03-28-2022 Sex Female (finding) [facility] NEGATED: Highlighted row [facility] Medical Equipment Procedure Code Equipment Code Equipment Original Text Equipment Identifier Dates Graft Vasc 30cm 28mm [facility] [address] - [id number] Start: 12-09-2014 Comment on above: Description: ascendi ng aorta Slv Scler 30mm 2.4mm 1.5mm Dinorah - [id number] Start: 10-29-2012 Comment on above: Description: Style # 72 Silicone Sleeve Strip Scler [id number] Dinorah Strl - [id number]_[facility] Start: 10-29-2012 Comment on above: Description: Style 4 050 Gas Io Ispan Vsn Sys 125gm Sf6 - [id number] Start: 10-29-2012 Comment on above: Description: SF6 gas 22% [place] Cv 6x6in Thk1.65mm Ptfe - [id number]_[facility] Start: 12-09-2014 Lens Iol +15.5 Mary Jo 13mm 5.5mm - [id number]_[facility] Start: 05-14-2014 [id number], [id number], [id number], [id number], [id number], [id number], [id number] Start: 05-18-2020 End: 06-25-2025 Comment on above: Use as instructed to check blood glucose 7 times daily. 10 x daily DX Code: O24.011 on insulin RUFINA voucher has been faxed Use as instructed to check blood glucose 5 times daily. E10.65 Use as instructed to test blood sugar 4 times daily. E10.65 Pen Needle, Diabetic (Ultra-Thin Ii Ins Pen [place]) 29 gauge x 1/2 needle Start: 08-10-2023 Pen Needle, Diabetic (Ultra-Thin Ii Ins Pen [place]) 29 gauge x 1/2 needle Start: 08-10-2023 Pen Needle, Diabetic (Ultra-Thin Ii Ins Pen [place]) 29 gauge x 1/2 needle Start: 08-10-2023 Pen Needle, Diabetic (Ultra-Thin Ii Ins Pen [place]) 29 gauge x 1/2 needle Start: 08-10-2023 Pen Needle, Diabetic (Ultra-Thin Ii Ins Pen [place]) 29 gauge x 1/2 needle Start: 08-10-2023 Pen Needle, Diabetic (Ultra-Thin Ii Ins Pen [place]) 29 gauge x 1/2 needle Start: 08-10-2023 Loop [id number] Reveal [id number]_[facility] Start: 09-15-2014 Goals Date Patient Goal Desired Activity /State Personal health goal Functional Status Date Assessment Result Facility 10-18-2023 Functional status Ambulates [facility] Work Phone: 08-10-2023 Functional status Up ad narendra [facility] Work Phone: 04-29-2023 Functional status Ambulates;Bedr est;Bathro om Privilege [facility] Work Phone: 02-04-2023 Are you deaf, or do you have serious difficulty hearing No 02/04/2023 2:39 PM EDT Jhoana Colunga RN No [facility] 02-04-2023 Are you blind, or do you have serious difficulty seeing, even when wearing glasses No 02/04/2023 2:39 PM Jhoana Mart, STIVEN No [facility] 02-04-2023 Do you have serious difficulty walking or climbing stairs No 02/04/2023 2:39 PM EDJhoana Martinez, STIVEN No [facility] 02-04-2023 Do you have difficul ty dressing or bathing No 02/04/2023 2:39 PM EDJhoana Martinez, STIVEN No [facility] 02-04-2023 Because of a physica l, mental, or emotional condition, do you have difficulty doing errands alone such as visiting a physician's office or shopping No 02/04/2023 2:39 PM SHOAIBT Jhoana Colunga, STIVEN No [facility] Mental Status Date Assessment Result Facility 10-17-2023 Cognitive function Awake;Alert;Appropriat e [facility] Work Phone: 09-20-2023 Cognitive function Level Of Cons ciousness Awake;Alert;Appropriate;Fol lows Commands [facility] Work Phone: 08-10-2023 Cognitive function Voice/Name [facility] Work Phone: 04-29-2023 Cognitive function Voice/Name [facility] Work Phone: 04-26-2023 Cognitive function Voice/Name [facility] Work Phone: 02-04-2023 Because of a physica l, mental, or emotional condition, do you have serious difficulty concentrating, remembering, or making decisions No 02/04/2023 2:39 PM EDT Jhoana Colunga RN No [facility] Clinical Notes 01-28-2016 to 03-19-2025 Mishel Ortez PA-C - 01/27/2025 1:00 PM EDTTelephone Encounter - Guero Hammer LPN - 11/11/2024 1:55 PM EDTTelephone Encounter - Guero Hammer LPN - 11/11/2024 1:55 PM EDT Note Date & Type Note Facility 03-19-2025 Note [facility] 03-17-2025 Note [facility] 03-08-2025 Note [facility] 03-05-2025 Note [facility] 02-21-2025 Note [facility] 01-27-2025 History of Present illness Narrative DATE OF SERVICE: 01/27/2025 PATIENT NAME: Kathleen Villa : 1995 AGE: 29 y.o. CLINIC NUMBER: [id number] Visit type: Established patient Chief Complaint Patient [...] Adhesive? Yes- adhesives. Social History: Born/raised in [place]. Excessive sun exposure: Yes Used tanning beds: [...] ingredient(s). 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 Patient advised [...] for this encounter. documented in this encounter [facility] 01-26-2025 Note [facility] 12-16-2024 Note [facility] 11-11-2024 Telephone encounter Note Please let her know that her x-ray demonstrates a significantly large amount of stool throughout the colon. I am going to send in Trulance for her to try spoke with patient and she is aware of new Rx was sent to pharmacy. Guero Hammer LPN [facility] 11-11-2024 Miscellaneous Notes Please let her know that her x-ray demonstrates a significantly large amount of stool throughout the colon. I am going to send in Trulance for her to try spoke with patient and she is aware of new Rx was sent to pharmacy. Guero Hammer LPN documented in this encounter [facility] 11-11-2024 History of Present illness Narrative Radiology [...] PATIENT PRESENTS WITH AN IMPLANTABLE OR ATTACHED ROAD MACHINERY INSPECTOR: No RADIOLOGY DEPARTMENT: General X-ray: Exam(s) Completed: Abdomen X-Ray: Abdomen PERIPHERAL IV DATA: Not applicable SIGNED BY: RT Eugenio(R) November 11, 2024 11:07 AM documented in this encounter [facility] 11-11-2024 Note HNO ID: [id number] Author: VAMSI STEWART RT(R) Service: Radiology Author [...] PATIENT PRESENTS WITH AN IMPLANTABLE OR ATTACHED ROAD MACHINERY INSPECTOR: No RADIOLOGY DEPARTMENT: General X-ray: Exam(s) Completed: Abdomen X-Ray: Abdomen PERIPHERAL IV DATA: Not applicable SIGNED BY: RT Eugenio(R) November 11, 2024 11:07 AM [facility] 11-11-2024 Note HNO ID: [id number] Author: LETICIA HYLTON, DO Service: ? Author [...] every 24 hours. 38.7 mL 1 Insulin [place], Disposable, (PEN NEEDLE) 32 gauge x 5/32 [...] no edema RESPIRATORY: No dyspnea : neg RESIDENTIAL FEE APPRAISER: neg The remainder of the review of [...] ABDOMEN 1V SUPINE (more content not included)... [facility] 11-11-2024 History of Present illness Narrative [...] every 24 hours. 38.7 mL 1 Insulin [place], Disposable, (PEN NEEDLE) 32 gauge x /32 [...] no edema RESPIRATORY: No dyspnea : neg RESIDENTIAL FEE APPRAISER: neg The remainder of the review of [...] Hylton DO 11/11/2024 documented in this encounter [facility] 11-06-20[facility]-05-[facility]24 Miscellaneous Notes Agree with ER. The [...] on the phone. documented in this encounter [facility] 11-05-2024 Telephone encounter Note Agree with ER. The patient actually does not have gastroparesis although she keeps stating that she does. Her smart pill in 2020 demonstrated no evidence of gastroparesis. What she has is chronic constipation and abdominal pain. [facility] 11-05-2024 Telephone encounter Note Called patient and [...] functioning appropriately. Please advice. Guero Hammer LPN [facility] 11-05-2024 Telephone encounter Note Patient called and left v/m crying. States she has an appointment but is having some major issues and needs to talk to someone about what to do. She did not state what kinds of issues she is having however she was crying on the phone. [facility] Work Phone: 10-21-2024 Note [facility] 10-10-2024 Telephone encounter Note Form re-faxed per [facility] request [facility] 10-10-2024 Miscellaneous Notes Form re-faxed per [facility] request Form signed. Jessica Guerrero APRN.FORESTRY TECHNICAL OFFICER Clinical notes and DWO for infusion supplies placed on providers desk to review and advise. To be faxed to [facility] [phone] Patient has been identified by name and date of : Yes Type of form: [facility] Medical Physician Order for Insulin Pump Therapy and Diabetes Testing Form received via: abstract When form is completed, fax form to fax number provided. Form has been forwarded to: Provider's mailbox. Provider name: FRIEDA Urena documented in this encounter [facility] 10-02-2024 Telephone encounter Note Form signed. Jessica Guerrero APRN.CNP [facility] 10-02-2024 Telephone encounter Note Clinical notes and DWO for infusion supplies placed on providers desk to review and advise. To be faxed to [facility] [phone] [facility] 10-02-2024 Telephone encounter Note Patient has been identified by name and date of : Yes Type of form: [facility] Medical Physician Order for Insulin Pump Therapy and Diabetes Testing Form received via: abstract When form is completed, fax form to fax number provided. Form has been forwarded to: Provider's mailbox. Provider name: FRIEDA Urena [facility] 09-02-2024 Note HNO ID: [id number] Author: LETICIA HYLTON, DO Service: ? Author Type: Physician Type: Progress Notes Filed: 09/02/2024 09:32 Note Text: FOLLOW UP VIRTUAL VISIT I have communicated my name and active licensure. The patient's identity and physical location were verified at the time of this visit. Either the patient or their legal telemarketing representative has been informed of the risks [...] every 24 hours. 38.7 mL 1 Insulin [place], Disposable, (PEN NEEDLE) 32 gauge x 5/32 [...] no edema RESPIRATORY: No dyspnea : Negative RESIDENTIAL FEE APPRAISER: Negative The remainder of the review of [...] the local ER Leticia Hylton DO 09/02/2024 [facility] 09-02-2024 History of Present illness Narrative FOLLOW UP VIRTUAL VISIT I have communicated my name and active licensure. The patient's identity and physical location were verified at the time of this visit. Either the patient or their legal telemarketing representative has been informed of the risks [...] every 24 hours. 38.7 mL 1 Insulin [place], Disposable, (PEN NEEDLE) 32 gauge x 5/32 [...] no edema RESPIRATORY: No dyspnea : Negative RESIDENTIAL FEE APPRAISER: Negative The remainder of the review of systems are negative. Reviewed with patient during visit today. PHYSICAL EXAMINATION: [facility] 06/04/2024 Estimated weight: GENERAL APPEARANCE: Well [...] Hylton DO 09/02/2024 documented in this encounter [facility] 08-07-2024 Telephone encounter Note Medication: Skyrizi 150mg/ml Dosing Schedule: 150mg every 12 weeks Prior Authorization: Submitted date: 08.07.2024 [place] reference #: [id number] Approval dates: 08.07.2024-08.27.2024 [facility] [phone] [facility] 08-07-2024 Miscellaneous Notes Medication: Skyrizi 150mg/ml Dosing Schedule: 150mg every 12 weeks Prior Authorization: Submitted date: 08.07.2024 [place] reference #: [id number] Approval dates: 08.07.2024-08.27.2024 [facility] [phone] documented in this encounter [facility] 08-03-2024 Note [facility] 07-24-2024 Telephone encounter Note [facility] form for CGM /Pump completed and signed per Provider for Medtronic 780G pump and Guardian 4. Completed form and JOSE X2 documentation faxed as requested to [facility]. Lisa Aguilar LPN [facility] 07-24-2024 Miscellaneous Notes [facility] form for CGM /Pump completed and signed per Provider for Medtronic 780G pump and Guardian 4. Completed form and JOSE X2 documentation faxed as requested to [facility]. Lisa Aguilar LPN Images from the original note were not included. Jessica Guerrero APRN.FRIEDA Ashby She was able to get upgraded pump recently. I am sending her to [employer] to start. She will need new supplies from [facility] including Guardian 4 CGM and supplies for Medtronic 780 G. Jessica Guerrero APRN.FORESTRY TECHNICAL OFFICER documented in this encounter [facility] 07-23-2024 Note HNO ID: [id number] Author: VAMSI CARSON, STIVEN Service: ? Author Type: Registered Nurse Type: Progress Notes Filed: 07/23/2024 09:04 Note Text: DIABETES CARE AND EDUCATION VISIT Location: [facility] Type of visit: In person individual PATIENT'S [...] DATE: July 23, 2024 TIME: 8:47 AM [facility] 07-23-2024 History of Present illness Narrative DIABETES CARE AND EDUCATION VISIT Location: [facility] Type of visit: In person individual PATIENT'S [...] TIME: 8:47 AM documented in this encounter [facility] 07-19-2024 Telephone encounter Note Images from the original note were not included. Jessica Guerrero, ESTEFAINA.FORESTRY TECHNICAL OFFICER P Indep Endo Ma Pool She was able to get upgraded pump recently. I am sending her to [employer] and [employer] to start. She will need new supplies from [facility] including Guardian 4 CGM and supplies for Medtronic 780 G. Jessica Guerrero APRN.FORESTRY TECHNICAL OFFICER [facility] 07-19-2024 History of Present illness Narrative [facility] DIABETES VISIT VIRTUAL VISIT I have communicated my name and active licensure. The patient's identity and physical location were verified at the time of this visit. Either the patient or their legal telemarketing representative has been informed of the risks [...] 43 Units subcutaneously every 24 hours. Insulin Tampa, Disposable, (PEN NEEDLE) 32 gauge x 5/32 [...] Memory Loss: No Seizures: No PHYSICAL EXAMINATION: [facility] 11/26/2022 General: Well appearing, alert, in no acute distress, well nourished. Lung: Unlabored on room air Neurological: alert and oriented x3 IMPRESSION/PLAN Ms. Villa is a 28 year old female who returns to the Department of Endocrinology for diabetes management. (E10.65) Type 1 diabetes mellitus with hyperglycemia, with long-term current use of insulin ([facility]) (primary encounter diagnosis) (Z96.41) Insulin pump status - Undetermined control - She was able to get upgraded pump back recently - Plans to send loaner back as it would be monthly charge - Will have her schedule visit with educator to start pump - Message sent to Umair at [employer] to help with upgrade to 780G and start Guardian 4 CGM - Will reach out to [facility] so she can get supplies - [...] I will reach out to Umair at [employer] about new pump and CGM 5) Update [...] Next visit in 2 months. Jessica Guerrero APRN.[facility] [place] Some elements in this note were copied from my last note and have been updated as appropriate and reflect medical decision making today. documented in this encounter [facility] 07-19-2024 Note HNO ID: [id number] Author: JESSICA GUERRERO APRN.FRIEDA Service: ? Author Type: Nurse Practitioner Type: Progress Notes Filed: 07/19/2024 15:15 Note Text: [facility] DIABETES VISIT VIRTUAL VISIT I have communicated my name and active licensure. The patient's identity and physical location were verified at the time of this visit. Either the patient or their legal telemarketing representative has been informed of the risks [...] 43 Units subcutaneously every 24 hours. Insulin [place], Disposable, (PEN NEEDLE) 32 gauge x 5/32 [...] ECG TRANSMIS W (more content not included)... [facility] 07-10-2024 Note HNO ID: [id number] Author: JASON PAREDES MD Service: ? Author [...] L2 SAB0 IAB0 Ectopic0 Multiple0 Live Births2 Application Dba History LMP: 11/26/2022 (Exact Date), Having periods Age at Menarche: 12 Age at First : Age at Menopause: Application Dba History Comments: Sexual Activity: Yes; Male Contraception: [...] discussed with the Patient or Patient's Authorized Electrical Continuity Tester. As applicable, any other physician, advance practice provider, medical student, or other health professional student that will be observing or involved in the sensitive examination for educational or training purposes was discussed with the Patient or Authorized Electrical Continuity Tester. The Patient or Authorized Electrical Continuity Tester has agreed to proceed with the sensitive [...] external genitalia normal, normal Bartholin's glands, urethra, Copperton's glands, no vulvar lesions, no cervical lesions, [...] or sooner as needed Jason Paredes MD [facility] 07-10-2024 History of Present illness Narrative [...] L2 SAB0 IAB0 Ectopic0 Multiple0 Live Births2 Application Dba History LMP: 11/26/2022 (Exact Date), Having periods Age at Menarche: 12 Age at First : Age at Menopause: Application Dba History Comments: Sexual Activity: Yes; Male Contraception: [...] discussed with the Patient or Patient's Authorized Electrical Continuity Tester. As applicable, any other physician, advance practice provider, medical student, or other health professional student that will be observing or involved in the sensitive examination for educational or training purposes was discussed with the Patient or Authorized Electrical Continuity Tester. The Patient or Authorized Electrical Continuity Tester has agreed to proceed with the sensitive [...] external genitalia normal, normal Bartholin's glands, urethra, Copperton's glands, no vulvar lesions, no cervical lesions, [...] Jason Paredes MD documented in this encounter [facility] 06-25-2024 Telephone encounter Note Message has been relayed to patient via phone. Patient verbalizes understanding. Xtone message sent for patients reference as requested. [facility] 06-25-2024 Miscellaneous Notes Message has been relayed to patient via phone. Patient verbalizes understanding. [employer] message sent for patients reference as requested. I recommend she sees certified diabetes educator to review pump options- I am [...] any further questions or concerns, Jessica Guerrero APRN.FORESTRY TECHNICAL OFFICER JOSE- 03/12/24 NOV- 07/19/24 Spoke to patient [...] is currently using a loaner pump through [employer], that she will be billed $3,600 for. Patient is agreeable to any pump suggestions from provider. Insurance states she will have coverage for pumps, except for Medtronic. Patient is also in need of a refill of Insulin Lispro. Would like pen-injector sent to [facility] Discussed with provider in office Please advise Patient needs a new pump other than medtonic pump. She also needs pen novolog while she awaits a new pump documented in this encounter [facility] 06-25-2024 Telephone encounter Note I recommend she sees certified diabetes educator to review pump options- I am [...] any further questions or concerns, Jessica Guerrero APRN.FORESTRY TECHNICAL OFFICER T [facility] 06-25-2024 Telephone encounter Note JOSE- 03/12/24 NOV- [...] Insulin Lispro. Would like pen-injector sent to [facility] Discussed with provider in office Please advise [facility] 06-24-2024 Telephone encounter Note Patient needs a new pump other than [employer]ic pump. She also needs pen novolog while she awaits a new pump T [facility] Work Phone: 06-17-2024 Telephone encounter Note Noted. Copy scanned into chart [facility] 06-17-2024 Miscellaneous Notes Noted. Copy scanned into chart Patient has been identified by name and date of : Yes Type of form: [employer] Medication Reconciliation Post Discharge V2 Form received via: Fax When form is completed, fax form to fax number provided. Form has been forwarded to: Provider's mailbox. Provider name: Dr. Joshua Quinteros documented in this encounter [facility] 06-17-2024 Telephone encounter Note Patient has been identified by name and date of : Yes Type of form: [employer] Medication Reconciliation Post Discharge V2 Form received via: Fax When form is completed, fax form to fax number provided. Form has been forwarded to: Provider's mailbox. Provider name: Dr. Joshua Quinteros [facility] 06-11-2024 Lisa [facility] 05-24-2024 Telephone encounter Note Spoke to pt. JOSE 03/12/24 ( we can sent notes over, if needed) 07/19/24 We have not received any new order forms from [employer] or [employer]. Advised pt to reach out. [facility] 05-24-2024 Miscellaneous Notes Spoke to pt. JOSE [...] Please keep me updated if any issues. Jesisca Guerrero APRN.FRIEDA JOSE 03/12/24 Joshua CAMPA 05/28/24 Josue Pt uses [facility] for supplies Has had loaner pump x3 months through [employer] and now has to return it or pay $3000 out of pocket. Advised pt she has to call [facility] and have them send us an [...] pay the $3000,was told to call her feller seam operator for assistance. documented in this encounter [facility] 05-24-2024 Telephone encounter Note Patient has to reschedule her oct appt and will be completely out of her pump supplies before her next June appt. Please advise she needs her pump suppllies [facility] Work Phone: 05-17-2024 Telephone encounter Note Lantus refill sent in. Please keep me updated if any issues. Jessica Guerrero APRN.FRIEDA T [facility] 05-17-2024 Telephone encounter Note JOSE 03/12/24 Joshua CAMPA 05/28/24 Josue Pt uses [facility] for supplies Has had loaner pump x3 months through [employer] and now has to return it or pay $3000 out of pocket. Advised pt she has to call [facility] and have them send us an order form for a new pump (have to see if insurance will pay for a new pump- Old pump was 5 years old) Told pt she has to let us know if she is without a pump and needs insulin ordered. Verbalized understanding. [facility] 05-16-2024 Telephone encounter Note Pt got [...] pay the $3000,was told to call her feller seam operator for assistance. [facility] 05-06-2024 Telephone encounter Note Medication: Skyrizi 150mg/ml Dosing Schedule: 150mg every 12 weeks Prior Authorization: Submitted date: 05.06.2024 PA reference #: [id number] Approval dates: 05.06.2024-08.27.2024 [facility] [phone] [facility] 05-06-2024 Miscellaneous Notes Medication: Skyrizi 150mg/ml Dosing Schedule: 150mg every 12 weeks Prior Authorization: Submitted date: 05.06.2024 PA reference #: [id number] Approval dates: 05.06.2024-08.27.2024 [facility] [phone] documented in this encounter [facility] 04-08-2024 Telephone encounter Note Prescription Refill Information [...] Yazmin Zaldivar April 08, 2024 1:18 PM [facility] 04-08-2024 Miscellaneous Notes Prescription Refill Information The [...] 2024 1:18 PM documented in this encounter [facility] 03-12-2024 History of Present illness Narrative Images from the original note were not included. Last Visit: 12/13/2023 Ms. Villa is here for follow up regarding her DM Type 1. Is patient interested in MyChart? Patient uses it SMBG: Hyperglycemia: Yes, but rare Type of Monitor: apprupt 630G/ Guardian Frequency of Monitorin-8 times a [...] hyperglycemia, with long-term current use of insulin ([facility]) (primary encounter diagnosis) (Z96.41) Insulin pump status [...] which included preparing to see the patient, sdms-[id number] patient care, completing clinical documentation, communicating results to the patient/family/caregiver, and care coordination (not separately reported). documented in this encounter [facility] 03-12-2024 Note HNO ID: [id number] Author: LISA AGUILAR LPN Service: ? Author [...] mg/dL Insulin du (more content not included)... [facility] 03-05-2024 Telephone encounter Note Faxed and filed. [facility] 03-05-2024 Miscellaneous Notes Faxed and filed. Signed On your desk. Please sign Patient has been identified by name and date of : Yes Type of form: [employer] Form received via: Fax When form is completed, fax form to fax number provided. Form has been forwarded to: SILVINO Liriano documented in this encounter [facility] 03-05-2024 Telephone encounter Note Signed [facility] Work Phone: 03-04-2024 Telephone encounter Note On your desk. Please sign [facility] 03-02-2024 Telephone encounter Note Patient has been identified by name and date of : Yes Type of form: [employer] Form received via: Fax When form is completed, fax form to fax number provided. Form has been forwarded to: SILVINO Liriano [facility] 02-14-2024 Telephone encounter Note Spoke with patient via phone and reviewed orders per [facility] notes. The patient is currently taking Humalog [...] understanding. No further questions at this time. [facility] 02-14-2024 Miscellaneous Notes Spoke with patient via phone and reviewed orders per [facility] notes. The patient is currently taking Humalog [...] pump on. Patient can be reached at [phone] documented in this encounter [facility] 02-14-2024 Telephone encounter Note Patient stated that her 630G pump malfunctioned and she had to get a new one. Patient needs to now what settings to put the pump on. Patient can be reached at [phone] [facility] 02-13-2024 Telephone encounter Note Images from the original note were not included. Returned patient's call. Pt states her pump got water on it and stopped working. Pt requests back up medication. Lantus and Humalog sent to the pharmacy of patient's preference. Jenn Solo MD Clinical Fellow PGY-4 Endocrinology and Metabolism [place] [facility] 02-13-2024 Miscellaneous Notes Images from the original note were not included. Returned patient's call. Pt states her pump got water on it and stopped working. Pt requests back up medication. Lantus and Humalog sent to the pharmacy of patient's preference. Jenn Solo MD Clinical Fellow PGY-4 Endocrinology and Metabolism [place] documented in this encounter [facility] 01-25-2024 Telephone encounter Note Returned pt's call. Pt scheduled for 02/01/24 for ILK. [facility] 01-25-2024 Miscellaneous Notes Returned pt's call. Pt [...] not helping either. documented in this encounter [facility] 01-24-2024 Telephone encounter Note Patient left a voicemail on the nurses line returning ileana's call. [facility] 01-24-2024 Miscellaneous Notes Patient left a voicemail [...] not helping either. documented in this encounter [facility] 01-24-2024 Telephone encounter Note Attempted to contact patient to offer/schedule for ILK injection to the stubborn spot on her scalp. Advised to return call if she would like to schedule. [facility] 01-23-2024 Telephone encounter Note Spoke to patient today to set up delivery of Skyrizi. She states that she has a stubborn spot on her scalp that is not going away. Everything else is going well but the topicals are not helping either. [facility] Note HNO ID: [id number] Author: KYARA LUIS RN Service: ? Author [...] discharged from care coordination. 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 [5048] Prescriptions as of 12/15/2023 - promethazine (PHENERGAN) [...] (post-traumatic stress disorder) [F43.10] 12/25/2012 DVT prophylaxis [ZOA1835] 12/25/2012 09/04/2013 DISPOSITION AND FOLLOW-UP [V999.01] 12/25/2012 09/04/2013 HTN (hypertension) [I10] Hypertension in , antepartum [O16.9] 09/19/2013 01/08/2014 GBS (group B Streptococcus carrier), +RV cultur*11/11/2013 04/16/2014 [Z34.90] 11/22/2013 04/16/2014 Diabetes mellitus in (HCC) [O24.919] 12/25/2013 04/16/2014 Diabetic ketoacidosis without coma associated w*01/08/2014 02/04/2023 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] 01/08/2014 DVT prophylaxis [VQN4818] 02/25/2014 04/16/2014 care and examination [Z39.2] 02/25/2014 04/16/2014 Near syncope [R55] 06/17/2014 Dyspnea [R06.00] 11/04/2014 Pre-op testing [Z01.818] 11/28/2014 Atelectasis [J98.11] 12/10/2014 Fluid overload [E87.70] 12/10/2014 12/15/2014 Tachycardia, unspecified [R00.0] 12/10/2014 12/12/2014 Post-operative pain [G89.18] (more content not included)... [facility] 12-13-2023 Instructions Jessica Guerrero APRN.CNP - [...] in 3 months documented in this encounter [facility] 12-13-2023 History of Present illness Narrative Images [...] Other maternal great grandma I reviewed the Tours Captain's notes with this visit for vital signs, [...] grandmother DM2 She is living at a senior care currently, will be moving at the end [...] patient is currently taking Humalog insulin via apprupt 630G insulin pump in manual mode at [...] hyperglycemia, with long-term current use of insulin ([facility]) (primary encounter diagnosis) (Z96.41) Insulin pump status - Worsening control - She is having frequent lows - Will adjust basal rate to help prevent low readings - I will reach out to apprupt regarding why CGM order is delayed as [...] months. Jessica Guerrero APRN.CNP Endocrinology & Metabolism [place] Some elements in this note were copied from my last note and have been updated as appropriate and reflect medical decision making today. documented in this encounter [facility] 12-13-2023 Note HNO ID: [id number] Author: JESSICA GUERRERO APRN.CNP Service: ? Author [...] Other maternal great grandma I reviewed the Tours Captain's notes with this visit for vital signs, [...] living at a (more content not included)... [facility] 11-22-2023 Note HNO ID: [id number] Author: KYARA LUIS RN Service: ? Author [...] TCM completed will follow for care coordination. Salvage Cutter plan for next outreach: Will follow up Kyara Luis RN November 22, 2023 2:29 PM [facility] 11-22-2023 Note Patient Outreach ( [facility]) KATHLEEN VILLA ([id number]) 1995 F T Date Time Provider Department 11/22/23 KYARA LUIS [facility] During your visit today, we recorded [...] TCM completed will follow for care coordination. Salvage Cutter plan for next outreach: Will follow up [...] (post-traumatic stress disorder) [F43.10] 12/25/2012 DVT prophylaxis [[id number]] 12/25/2012 09/04/2013 DISPOSITION AND FOLLOW-UP [V999.01] 12/25/2012 09/04/2013 HTN (hypertension) [I10] Hypertension in , antepartum [O16.9] 09/19/2013 01/08/2014 GBS (group B Streptococcus carrier), +RV cultur*11/11/2013 04/16/2014 [Z34.90] 11/22/2013 04/16/2014 Diabetes mellitus in (HCC) [O24.919] 12/25/2013 04/16/2014 Diabetic ketoacidosis without coma associated w*01/08/2014 02/04/2023 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] 01/08/2014 DVT prophylaxis [[id number]] 02/25/2014 04/16/2014 care and examination [Z39.2] 02/25/2014 [...] suprapubic [R10.2] 02/07/2023 (more content not included)... [facility] 11-14-2023 History of Present illness Narrative DATE OF SERVICE: 11/14/2023 PATIENT NAME: Kathleen Villa : 1995 AGE: 28 y.o. CLINIC NUMBER: [id number] Visit type: Established patient Chief Complaint Patient [...] reapply. 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 Patient advised to perform self-skin checks and call for follow up appointment if any new or concerning lesions detected. Follow up in about 1 year (around 11/13/2024) for Psoriasis f/u. Leesa Huddleston PA-C 11/14/23 5:13 PM REFERRING MD: documented in this encounter [facility] [facility] 11-10-2023 Note HNO ID: [id number] Author: KYARA LUIS RN Service: ? Author [...] yet to schedule but plans to call. Salvage Cutter plan for next outreach: Will follow up Signature Kyara Luis RN November 10, 2023 [facility] 11-10-2023 Note Patient Outreach ( [facility]) DAISYKATHLEEN Swain ([id number]) 1995 F CHT Date Time Provider Department 11/10/23 KYARA LUIS [facility] During your visit today, we recorded [...] yet to schedule but plans to call. Salvage Cutter plan for next outreach: Will follow up [...] (post-traumatic stress disorder) [F43.10] 12/25/2012 DVT prophylaxis [[id number]] 12/25/2012 09/04/2013 DISPOSITION AND FOLLOW-UP [V999.01] 12/25/2012 09/04/2013 HTN (hypertension) [I10] Hypertension in , antepartum [O16.9] 09/19/2013 01/08/2014 GBS (group B Streptococcus carrier), +RV cultur*11/11/2013 04/16/2014 [Z34.90] 11/22/2013 04/16/2014 Diabetes mellitus in (HCC) [O24.919] 12/25/2013 04/16/2014 Diabetic ketoacidosis without coma associated w*01/08/2014 02/04/2023 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] 01/08/2014 DVT prophylaxis [IHU1430] 02/25/2014 04/16/2014 care and examination [Z39.2] 02/25/2014 [...] Encounter Status:Closed by KYARA LUIS on 11/10/23 [facility] 11-10-2023 History of Present illness Narrative [...] yet to schedule but plans to call. Salvage Cutter plan for next outreach: Will follow up Signature Kyara Luis RN November 10, 2023 documented in this encounter [facility] 11-03-2023 Note HNO ID: [id number] Author: KYARA LUIS RN Service: ? Author Type: Registered Nurse Type: Progress Notes Filed: 11/03/2023 12:45 Note Text: Summary: TCM follow up TRANSITION CARE MANAGEMENT (TCM) FOLLOW-UP NOTE Provider Action/FYI Patient identified by name and date of : YES Summary: TCM follow up call placed, patient requesting call back at later date, currently resting Salvage Cutter plan for next outreach: Will follow up Signature Kyara Luis RN November 03, 2023 [facility] 11-03-2023 Note Patient Outreach (MR CAC) KATHLEEN VILLA ([id number]) 1995 F CHT Date Time Provider Department 11/03/23 KYARA LUIS [facility] During your visit today, we recorded the following information about you: Kyara Luis RN 11/03/2023 12:45 PM Signed TRANSITION CARE MANAGEMENT (TCM) FOLLOW-UP NOTE Provider Action/FYI Patient identified by name and date of : YES Summary: TCM follow up call placed, patient requesting call back at later date, currently resting Salvage Cutter plan for next outreach: Will follow up [...] (post-traumatic stress disorder) [F43.10] 12/25/2012 DVT prophylaxis [EFP5310] 12/25/2012 09/04/2013 DISPOSITION AND FOLLOW-UP [V999.01] 12/25/2012 09/04/2013 HTN (hypertension) [I10] Hypertension in , antepartum [O16.9] 09/19/2013 01/08/2014 GBS (group B Streptococcus carrier), +RV cultur*11/11/2013 04/16/2014 [Z34.90] 11/22/2013 04/16/2014 Diabetes mellitus in (HCC) [O24.919] 12/25/2013 04/16/2014 Diabetic ketoacidosis without coma associated w*01/08/2014 02/04/2023 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] 01/08/2014 DVT prophylaxis [[id number]] 02/25/2014 04/16/2014 care and examination [Z39.2] 02/25/2014 [...] Encounter Status:Closed by KYARA LUIS on 11/03/23 [facility] 11-03-2023 History of Present illness Narrative Summary: TCM follow up TRANSITION CARE MANAGEMENT (TCM) FOLLOW-UP NOTE Provider Action/FYI Patient identified by name and date of : YES Summary: TCM follow up call placed, patient requesting call back at later date, currently resting Salvage Cutter plan for next outreach: Will follow up Signature Kyara Luis RN November 03, 2023 documented in this encounter [facility] 10-27-2023 Note HNO ID: [id number] Author: KYARA LUIS RN Service: ? Author Type: Registered Nurse Type: Progress Notes Filed: 10/27/2023 14:48 Note Text: Summary: TCM follow up TRANSITION CARE MANAGEMENT (TCM) FOLLOW-UP NOTE Provider Action/FYI Patient identified by name and date of : YES Discharge Network Status: Qeq-bn-Ikqymle (OON) Discharge Summary: TCM follow up call placed to patient, was at ED on 10/25 due to anxiety, started on ativan which is helping. Per patient has thoughts of self harm/cutting, this has subsided, no suicidal ideation. Has been in contact with [facility] and has evaluation on 11/05. Has been in contact with her counselor. Has number to crisis and encouraged to return to ED if new/worsening symptoms. Monitoring blood sugars, states have been stable. Per patient may have to change to PCP in [place], has difficulty obtaining ride to [place]. Patient asked if name and number of locals physicians can be sent to her, sent via email. States has all medications, taking as directed. Salvage Cutter plan for next outreach: Will follow up Signature Kyara Luis RN October 27, 2023 [facility] 10-27-2023 History of Present illness Narrative Summary: TCM follow up TRANSITION CARE MANAGEMENT (TCM) FOLLOW-UP NOTE Provider Action/FYI Patient identified by name and date of : YES Discharge Network Status: Guv-vn-Ehxeiuz (OON) Discharge Summary: TCM follow up call placed to patient, was at ED on 10/25 due to anxiety, started on ativan which is helping. Per patient has thoughts of self harm/cutting, this has subsided, no suicidal ideation. Has been in contact with [facility] program and has evaluation on 11/05. Has been in contact with her counselor. Has number to crisis and encouraged to return to ED if new/worsening symptoms. Monitoring blood sugars, states have been stable. Per patient may have to change to PCP in [place], has difficulty obtaining ride to [place]. Patient asked if name and number of locals physicians can be sent to her, sent via email. States has all medications, taking as directed. Salvage Cutter plan for next outreach: Will follow up Signature Kyara Lusi RN October 27, 2023 documented in this encounter [facility] 10-27-2023 Note Patient Outreach (MR CAC) KATHLEEN VILLA ([id number]) 1995 F CHT Date Time Provider Department 10/27/23 KYARA LUIS [facility] During your visit today, we recorded the following information about you: Kyara Luis RN 10/27/2023 2:48 PM Signed TRANSITION CARE MANAGEMENT (TCM) FOLLOW-UP NOTE Provider Action/FYI Patient identified by name and date of : YES Discharge Network Status: Evl-ai-Zzwzjoz (OON) Discharge Summary: TCM follow up call [...] may have to change to PCP in [place], has difficulty obtaining ride to [place]. Patient asked if name and number of locals physicians can be sent to her, sent via email. States has all medications, taking as directed. Salvage Cutter plan for next outreach: Will follow up [...] (post-traumatic stress disorder) [F43.10] 12/25/2012 DVT prophylaxis [[id number]] 12/25/2012 09/04/2013 DISPOSITION AND FOLLOW-UP [V999.01] 12/25/2012 09/04/2013 HTN (hypertension) [I10] Hypertension in , antepartum [O16.9] 09/19/2013 01/08/2014 GBS (group B Streptococcus carrier), +RV cultur*11/11/2013 04/16/2014 [Z34.90] 11/22/2013 04/16/2014 Diabetes mellitus in (HCC) [O24.919] 12/25/2013 04/16/2014 Diabetic ketoacidosis without coma associated w*01/08/2014 02/04/2023 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] 01/08/2014 DVT prophylaxis [CAD5225] 02/25/2014 04/16/2014 care and examination [Z39.2] 02/25/2014 [...] disease*04/18/2022 Chronic na (more content not included)... [facility] 10-20-2023 Note HNO ID: [id number] Author: KYARA LUIS RN Service: ? Author [...] having a difficult time at a homeless senior care. Patient does attend weekly counseling at [facility], encouraged her to reach out to her [...] business days post-discharge SUMMARY: -Pt discharged from [facility] on 10/18/23. -Follow up appointment Endo. [...] per patient, her last A1C with her feller seam operator was 6.7. She had however had recurrent [...] to follow up with her PCP and feller seam operator as well as sign language interpreter o/a of gastroparesis. Patient seen and examined prior to discharge. She had no active complaints and had an uneventful night. Review of systems is otherwise negative. Labs and vitals reviewed. Home meds reviewed and reconciled. Kyara Luis RN [facility] 10-20-2023 History of Present illness Narrative [...] having a difficult time at a homeless senior care. Patient does attend weekly counseling at [facility], encouraged her to reach out to her [...] business days post-discharge SUMMARY: -Pt discharged from [facility] on 10/18/23. -Follow up appointment Endo. [...] per patient, her last A1C with her feller seam operator was 6.7. She had however had recurrent [...] to follow up with her PCP and feller seam operator as well as sign language interpreter o/a of gastroparesis. Patient seen and examined prior to discharge. She had no active complaints and had an uneventful night. Review of systems is otherwise negative. Labs and vitals reviewed. Home meds reviewed and reconciled. Kyara Luis RN documented in this encounter [facility] 10-20-2023 Note Patient Outreach ( [facility]) KATHLEEN VILLA ([id number]) 1995 F T Date Time Provider Department 10/20/23 KYARA LUIS [facility] During your visit today, we recorded [...] having a difficult time at a homeless senior care. Patient does attend weekly counseling at [facility], encouraged her to reach out to her [...] business days post-discharge SUMMARY: -Pt discharged from [facility] on 10/18/23. -Follow up appointment Endo. [...] per patient, her last A1C with her feller seam operator was 6.7. She had however had recurrent [...] to follow up with her PCP and feller seam operator as well as sign language interpreter o/a of gastroparesis. Patient seen and examined [...] of 01/09/2020: All (more content not included)... [facility] 10-19-2023 Note HNO ID: [id number] Author: KYARA LUIS RN Service: ? Author Type: Registered Nurse Type: Progress Notes Filed: 10/19/2023 12:05 Note Text: Summary: TCM call TRANSITION CARE MANAGEMENT (TCM) FOLLOW-UP NOTE Provider Action/FYI Summary: TCM call placed to patient, no answer, message left to return my call at [phone] ext [phone] Salvage Cutter plan for next outreach: Will follow up Signature Kyara Luis RN October 19, 2023 [facility] 10-19-2023 Note Patient Outreach (MR CAC) KATHLEEN VILLA ([id number]) 1995 F T Date Time Provider Department 10/19/23 KYARA LUIS [facility] During your visit today, we recorded the following information about you: Kyara Luis RN 10/19/2023 12:05 PM Signed TRANSITION CARE MANAGEMENT (TCM) FOLLOW-UP NOTE Provider Action/FYI Summary: TCM call placed to patient, no answer, message left to return my call at [phone] ext [phone] Salvage Cutter plan for next outreach: Will follow up [...] (post-traumatic stress disorder) [F43.10] 12/25/2012 DVT prophylaxis [[id number]] 12/25/2012 09/04/2013 DISPOSITION AND FOLLOW-UP [V999.01] 12/25/2012 09/04/2013 HTN (hypertension) [I10] Hypertension in , antepartum [O16.9] 09/19/2013 01/08/2014 GBS (group B Streptococcus carrier), +RV cultur*11/11/2013 04/16/2014 [Z34.90] 11/22/2013 04/16/2014 Diabetes mellitus in (HCC) [O24.919] 12/25/2013 04/16/2014 Diabetic ketoacidosis without coma associated w*01/08/2014 02/04/2023 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] 01/08/2014 DVT prophylaxis [SZK5639] 02/25/2014 04/16/2014 care and examination [Z39.2] 02/25/2014 [...] Encounter Status:Closed by KYARA LUIS on 10/19/23 [facility] 10-19-2023 History of Present illness Narrative Summary: TCM call TRANSITION CARE MANAGEMENT (TCM) FOLLOW-UP NOTE Provider Action/FYI Summary: TCM call placed to patient, no answer, message left to return my call at [phone] ext [phone] Salvage Cutter plan for next outreach: Will follow up Signature Kyara Luis RN October 19, 2023 documented in this encounter [facility] 10-17-2023 History and physi cristina note Note Date/Time October 17, 2023 11:24am [facility] Medical Records Department [address] [place] [address] History & Physical Exam 10/17/23 1120 MR#: [id number] Acct: [id number] Name: KATHLEEN VILLA Rep #:[id number] : [...] DKA and an known type I diabetic. [facility] Medical History Anxiety Borderline personality [...] gauge x 1/2 (Ultra-Thin II Insulin Pen [place]) #100 ea08/10/23 [Rx Last Taken Unknown] prochlorperazine [...] 88.4 H, Lymph % (Auto) 7.8 L, [place] % (Auto) 2.4, Eos % (Auto) 0.1, [...] was 6.7. * follows up with an feller seam operator in [facility] in [place]. * last A1C from 08/07/2023 was 7 * #Gastroparesis in the setting of type 1 diabetes mellitus * on compazine. Add on phenergan prn * will benefit from metoclorpromide if nausea persists. * #Hypotension * BP is down in the 90s systolic. * will hydrate with IVF and trend. * DVT prpphylaxis: lovenox. Charges/Coding Visit Charges Inpatient E&M: 34376 Init Hosp L3 10/17/23 1224 <Electronically signed by Vita Jefferson MD> Cosigner Signature (if applicable): CC: Dr. Vita Jefferson MD; FUNMILAYO SMITH~ Signed [facility] Work Phone: 1(321) 873-117302-20-2024 Discharge summary Author Alexandro Garces [facility] October 17, 2023 11:38am Note Date/Time October 17, 2023 11:24am [facility] Medical Records Department [address] [place] [address] Emergency Department Summary 10/17/23 MR#: [id number] Acct: [id number] Name: KATHLEEN VILLA Rep #:[id number] : [...] gauge x 1/2 (Ultra-Thin II Insulin Pen [place]) #100 ea08/10/23 [Rx Last Taken Unknown] ibuprofen [...] Medical decision making narrative: Patient placed on ekg monitor. IV line initiated. Labwork obtained to evaluate [...] 88.4 H Lymph % (Auto) 7.8 L [place] % (Auto) 2.4 Eos % (Auto) 0.1 [...] Garces MD - Last Filed: 10/17/23 11:38> [facility] MDM Narrative Medical decision making narrative: Patient placed on ekg monitor. IV line initiated. Labwork obtained to evaluate [...] 88.4 H Lymph % (Auto) 7.8 L [place] % (Auto) 2.4 Eos % (Auto) 0.1 [...] minutes, Including time spent:, Discussing w/Patient &/or Family/Hand Funnel Coater, Discussing w/Consultants, Arranging Admission or Transfer, Performing Direct Patient Care at Bedside and - (35 minutes) Discharge Plan Dx/Rx/DC Orders Clinical Impression: DKA (diabetic ketoacidosis), Tachycardia, Nausea & vomiting, Acute dehydration Disposition Disposition: Acute Care Hospital [facility] What to do if you have Problems For any increased pain, shortness of breath, bleeding, nausea or vomiting, chest pain, or any unexpected problems, contact your Primary Care Provider. Call [facility] ([phone]) or report to the closest Emergency Room. Call 911 if necessary. 10/17/23 1138 <Electronically signed by Alexandro Garces MD> Cosigner Signature (if applicable): 10/17/23 1131 <Electronically signed by Jacqueline Alvarez RN> CC: FUNMILAYO SMITH ~ Signed [facility] Work Phone: 1(521) 413-790202-15-2024 NoteHNO ID: [id number] Author: KYARA LUIS RN Service: ? Author Type: Registered Nurse Type: Progress Notes Filed: 10/12/2023 14:16 Note Text: Summary: PCC follow up PRIMARY CARE COORDINATION FOLLOW-UP NOTE Provider Action/FYI Patient identified by name and date of . YES Summary: PCC follow up placed to patient, has moved out of senior care, now sharing and apartment. Per patient is [...] 100 mg/dL or on a high statin Salvage Cutter plan for next outreach: Will follow up Signature Kayra Luis RN October 12, 2023[facility]02-15-2024 NotePatient Outreach (MRCAC) KATHLEEN VILLA ([id number]) 1995 F T Date Time Provider Department 10/12/23 KYARA LUIS During your visit today, we recorded the following information about you: Kyara Luis RN 10/12/2023 2:16 PM Signed PRIMARY CARE COORDINATION FOLLOW-UP NOTE Provider Action/FYI Patient identified by name and date of . YES Summary: PCC follow up placed to patient, has moved out of senior care, now sharing and apartment. 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 Cook Chronic Care [5035] Prescriptions as of 10/12/2023 - promethazine (PHENERGAN) [...] (post-traumatic stress disorder) [F43.10] 12/25/2012 DVT prophylaxis [HBF8912] 12/25/2012 09/04/2013 DISPOSITION AND FOLLOW-UP [V999.01] 12/25/2012 09/04/2013 HTN (hypertension) [I10] Hypertension in , antepartum [O16.9] 09/19/2013 01/08/2014 GBS (group B Streptococcus carrier), +RV cultur*11/11/2013 04/16/2014 [Z34.90] 11/22/2013 04/16/2014 Diabetes mellitus in (HCC) [O24.919] 12/25/2013 04/16/2014 Diabetic ketoacidosis without coma associated w*01/08/2014 02/04/2023 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] 01/08/2014 DVT prophylaxis [IXD2523] 02/25/2014 04/16/2014 care and examination [Z39.2] 02/25/2014 [...] [K59.04] 11/18/2021 Menstrual i (more content not included)...[facility]02-15-2024 History of Present illness Narrative* Kyara Luis RN - 10/12/2023 1:55 PM EST Summary: PCC follow up PRIMARY CARE COORDINATION FOLLOW-UP NOTE Provider Action/FYI Patient identified by name and date of . YES Summary: PCC follow up placed to patient, has moved out of senior care, now sharing and apartment. Per patient is [...] 100 mg/dL or on a high statin Salvage Cutter plan for next outreach: Will follow up Signature Kyara Luis RN October 12, 2023 [facility] Miscellaneous Notes* Telephone Encounter - Lisa Aguilar LPN - 10/02/2023 10:52 AM EST [employer] forms faxed to office for pump and CGM supplies, [employer] and [employer]. [employer] as back up. Completed forms and JOSE documentation faxed as requested. Lisa Aguilar LPN documented [facility] NotePatient Outreach (MRCAC) KATHLEEN VILLA ([id number]) 1995 F CHT Date Time Provider Department [...] Per patient has been moved to different senior care in [place] and will not be moving to [place]. States blood sugars are stable. Using insurance for transportation and will need to call them to update her new address. Has all medications, taking as directed. Salvage Cutter plan for next outreach: Will follow up [...] LPN - Fully Assessed Reason for Visit: Mexican Food Cook Chronic Care [3612] Prescriptions as of 09/29/2023 [...] (post-traumatic stress disorder) [F43.10] 12/25/2012 DVT prophylaxis [OFD4716] 12/25/2012 09/04/2013 DISPOSITION AND FOLLOW-UP [V999.01] 12/25/2012 09/04/2013 HTN (hypertension) [I10] Hypertension in , antepartum [O16.9] 09/19/2013 01/08/2014 GBS (group B Streptococcus carrier), +RV cultur*11/11/2013 04/16/2014 [Z34.90] 11/22/2013 04/16/2014 Diabetes mellitus in (HCC) [O24.919] 12/25/2013 04/16/2014 Diabetic ketoacidosis without coma associated w*01/08/2014 02/04/2023 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] 01/08/2014 DVT prophylaxis [INL2127] 02/25/2014 04/16/2014 care and examination [Z39.2] 02/25/2014 [...] 02/07/2023 Encounter Status:Closed by KYARA LUIS on 09/29/23[facility] 09-29-2023 NoteHNO ID: [id number] Author: KYARA LUIS RN Service: ? Author Type: Registered Nurse Type: Progress Notes Filed: 09/29/2023 11:04 Note Text: Summary: PCC follow up PRIMARY CARE COORDINATION FOLLOW-UP NOTE Provider Action/FYI Patient identified by name and date of . YES Summary: Follow up call placed to patient, continues to have nausea, taking compazine. Per patient has been moved to different senior care in [place] and will not be moving to [place]. States blood sugars are stable. Using insurance for transportation and will need to call them to update her new address. Has all medications, taking as directed. Salvage Cutter plan for next outreach: Will follow up Signature Kyara Luis RN September 29, 2023[facility]02-02-[facility]24 History of Present illness Narrative* Kyara Luis RN - 09/29/2023 10:48 AM ESTSummary: PCC follow up PRIMARY CARE COORDINATION FOLLOW-UP NOTE Provider Action/FYI Patient identified by name and date of . YES Summary: Follow up call placed to patient, continues to have nausea, taking compazine. Per patient has been moved to different senior care in [place] and will not be moving to [place]. States blood sugars are stable. Using insurance for transportation and will need to call them to update her new address. Has all medications, taking as directed. Salvage Cutter plan for next outreach: Will follow up Signature Kyara Luis RN September 29, 2023 [facility]24 NoteHNO ID: [id number] Author: KYARA LUIS RN Service: ? Author Type: Registered Nurse Type: Progress Notes Filed: 09/22/2023 10:16 Note Text: Summary: ED follow up BUNDLE CLERK EMERGENCY DEPARTMENT FOLLOW UP INITIAL CONTACT Provider Action/FYI: Patient at [place] ED 09/20, Hyperglycemia, nausea/vomiting, was prescribed Reglan-states [...] refills. Patient has been living in homeless senior care in [place] making it difficult to keep appointments, also needing follow up with PCP. plan is to be moving to [place] and will be staying at [facility]. Message to office Spoke with patient aware phenergan filled and PCP scheduled for 10/03/23 Patient identified by name and date : YES SUMMARY: -Patient discharged from [place] ED on 09/20/22. -Follow up appointment on [...] for her nausea and vomiting. [facility] NotePatient Outreach (MRCAC) KATHLEEN VILLA ([id number]) 1995 F CHT Date Time Provider Department 09/21/23 [facility]IS [facility] During your visit today, we recorded the following information about you: Kyara Luis RN 09/22/2023 10:16 AM Addendum BUNDLE CLERK EMERGENCY DEPARTMENT FOLLOW UP INITIAL CONTACT Provider Action/FYI: Patient at [place] ED 09/20, Hyperglycemia, nausea/vomiting, was prescribed Reglan-states [...] refills. Patient has been living in homeless senior care in [place] making it difficult to keep appointments, also needing follow up with PCP. plan is to be moving to [place] and will be staying at [facility]. Message to office Spoke with patient aware phenergan filled and PCP scheduled for 10/03/23 Patient identified by name and date : YES SUMMARY: -Patient discharged from [place] ED on 09/20/22. -Follow up appointment on [...] LPN - Fully Assessed Reason for Visit: Mexican Food Cook Ed Follow Up [0911] Order(s):promethazine (PHENERGAN) 25 mg tabletTake 1 tablet [...] K31.84] 12/25/2012 PTSD (post-t (more content not included)...[facility]12-21-2023 Telephone encounter Note* Telephone Encounter - Mary Moreno PharmD - 08/17/2023 12:47 PM EST SUBJECTIVE Kathleen Villa is a 28 year old Female who was referred to [facility] for clinical management services for Skyrizi 150 MG/ML. Diagnosis Psoriasis vulgaris L40.0 OBJECTIVE Medications: Betamethasone Valerate 0.1 % CREA EX Clobetasol Propionate 0.05 % SOLN EX [place]/FS Body 0.01 % OIL EX Levothyroxine Sodium [...] knows we are available M- 8-5 at [phone]. Mary Moreno Clinical Pharmacist [facility] [id number] Miscellaneous Notes* Telephone Encounter - Mary Moreno PharmD - 08/17/2023 12:47 PM EST SUBJECTIVE Kathleen Villa is a 28 year old Female who was referred to [facility] for clinical management services for Skyrizi 150 MG/ML. Diagnosis Psoriasis vulgaris L40.0 OBJECTIVE Medications: Betamethasone Valerate 0.1 % CREA EX Clobetasol Propionate 0.05 % SOLN EX [place]/FS Body 0.01 % OIL EX Levothyroxine Sodium [...] knows we are available M- 8-5 at [phone]. Mary Moreno Clinical Pharmacist [facility] documented in this [facility]12-19-2023 NotePatient Outreach (MRCAC) KATHLEEN VILLA ([id number]) 1995 F T Date Time Provider Department 08/15/23 KYARA LUIS [facility] During your visit today, we recorded [...] malfunctioning and has received new supplies from [employer]. Has reached out to endocrinology and will keep scheduled appointment in August. Has picked up new medications, taking as directed, no further abdominal pain and blood sugar this am 153.amisha Sweet is currently staying in senior care and working with staff to secure housing. [...] SUMMARY: -Admitted for: DKA -Pt discharged from [place] on 08/10/23. -Follow up appointment on [facility] PCP will follow up as scheduled [...] on admission. Placed in ICU on admission. nurse educator evaluated on 08/07, patient reported no needs at this time. Patient transitioned off insulin drip on evening of 08/07, unfortunately had increased blood sugars with reopening of gap that evening, required insulin drip again in tractor crane operator of 08/08. Gap closed on morning [...] home. Recommended close outpatient follow-up with her feller seam operator. Enterocolitis, improving CT abdomen pelvis on admit [...] INSULIN) 100 unit/mL i (more content not included)...[facility]12-19-2023 NoteHNO ID: [id number] Author: Kyara Luis RN Service: ? Author Type: Registered Nurse Type: Progress Notes Filed: 08/15/2023 11:57 AM Note Text: Call Summary: Call placed to Kathleen Villa for transitional care management follow-up call. Spoke with patient, introduced self, explained role, discharge instructions, medications and follow up appointments reviewed with patient. Per patient insulin pump malfunctioning and has received new supplies from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 approach [...] All other components within normal limits Narrative: [facility] [employer] [facility] has implemented the eGFR calculation approach [...] Procedure Abnormality Status --------- ------ CBC Auto Differential[[id number]] Abnormal Final result Please view results for [...] available in inpatient encounters. Please contact a file system installer. Mariel Gagnon MD ED Attending Physician [facility] (Please note that portions of this [...] 217about an hour ago documented in this [id number] History and physical note* Ernie Ireland MD - 03/20/2023 11:17 AM EDT [facility] HISTORY AND PHYSICAL [facility] Patient Name: Kathleen Villa : 1995 MR #: [id number] Admit Date: 03/20/2023 Physicians: No, Physician (Family); [...] boluses and antiemetics and admitted to [facility] for further management. Past [...] normal coloration Psych: normal mood and affect [id number] History and physical note* Ernie Ireland MD - 03/20/2023 11:17 AM EDT [facility] HISTORY AND PHYSICAL -- [facility] Patient Name: Kathleen Villa : 1995 MR #: [id number] Admit Date: 03/20/2023 Physicians: No, Physician (Family); [...] boluses and antiemetics and admitted to [facility] for further management. Past [...] normal mood and affect documented in this [id number] Note* ED Update Note - Mary [place] [...] be admitted for further evaluation and treatment. [id number] Physician Emergency department Note* Mariel Gagnon MD - 03/20/2023 6:01 AM EDTAssociated Order(s): EKG 12-lead [facility] ATTENDING NOTE: NAME: Kathleen Villa CSN: [id number] 27 y.o. PCP: No, Physician History: Chief [...] All other components within normal limits Narrative: [facility] has implemented the [...] All other components within normal limits Narrative: [facility] [employer] [facility] has implemented the eGFR calculation approach [...] All other components within normal limits Narrative: [facility] [employer] [facility] has implemented the eGFR calculation approach [...] Procedure Abnormality Status --------- ------ CBC Auto Differential[[id number]] Abnormal Final result Please view results for [...] Note made of prior appendectomy surgical clips. [facility]/cdr Workstation ID: [id number] Procedures: EKG 12-lead [...] available in inpatient encounters. Please contact a file system installer. Mariel Gagnon MD ED Attending Physician [facility] (Please note that portions of this note have been completed with a voice recognition software. Efforts were made to correct any errors, but occasionally words are mis-transcribed.) Mariel Gagnon MD 03/21/23 1430 [facility] Work Phone: 1(867) 214-161707-24-2023 Emergency department Note* Tony Hernandez RN - 03/20/2023 4:26 AM EDT PT STATES THAT SHE CAN NOT PROVIDE URINE SAMPLE AND SHE NEEDS STRAIGHT CATH PERFORMED. [id number] Emergency department Triage note* Queta Arias, STIVEN - 03/20/2023 2:17 AM EDT Pt c/o vomiting and abdominal pain that started today, also c/o chest pain, states last bgl was 217about an hour ago [id number] NotePatient Outreach (MRCAC) KATHLEEN VILLA ([id number]) 1995 F T Date Time Provider Department 02/08/23 KYARA LUIS [facility] During your visit today, we recorded the following information about you: Kyara Lusi RN 02/08/2023 11:44 AM Signed Provider Update: Patient Concerns: Needs from Physician/Office: Call Summary: Call placed to Kathleen Villa for transitional care management follow-up call. Spoke with patient, introduced self, explained role, discharge instructions and medications reviewed with patient. States that she has history of gastroparesis, follow up yesterday with GI and medication changes made, will clam picker new medication from her pharmacy. States that vomiting has resolved, tolerating diet, does have nausea and is on compazine and phenergan at home. Monitors blood sugar 5 times per day, FBS this am 131, has insulin pump and adjust according to carbohydrate intake. Currently waiting on continuous glucose monitor that was ordered at her last endocrinology appointment through [facility], patient calling today to follow up [...] -Admitted for: Vomiting/diabetic gastroparesis -Pt discharged from [facility] on 02/04. -Follow up appointment: Has had f/u with GI, declines sooner PCP appointment at this time . -Medication review completed. NEW OR CHANGED MEDICATIONS:NA MEDS HELD/DISCONTINUED:NA BRIEF HOSPITAL COURSE: 27-year-old white female who presented 2 days ago on 01/31 secondary to nausea and vomiting at home. Patient has a known history of diabetic gastroparesis. She follows in [facility]. She was admitted to [place]. Unfortunately she has not been tolerating p.o. intake with the exception of some ice chips Patient would be started on insulin drip while in the ICU. Anion gap would close and the patient would be transitioined to a diet. Blood sugars would remain stable once restarting her insulin pump. She will cotninue following with her personal feller seam operator outpatient. Follow up with PCP in one [...] 4 gram chewable tablet (more content not included)...[facility]06-14-2023 NoteHNO ID: [id number] Author: Kyara Luis RN Service: ? Author [...] with GI and medication changes made, will clam picker new medication from her pharmacy. States [...] -Admitted for: Vomiting/diabetic gastroparesis -Pt discharged from [facility] on 02/04. -Follow up appointment: Has had f/u with GI, declines sooner PCP appointment at this time . -Medication review completed. NEW OR CHANGED MEDICATIONS:NA MEDS HELD/DISCONTINUED:NA BRIEF HOSPITAL COURSE: 27-year-old white female who presented 2 days ago on 01/31 secondary to nausea and vomiting at home. Patient has a known history of diabetic gastroparesis. [facility]. She was admitted to [place]. Unfortunately she has not been tolerating p.o. intake with the exception of some ice chips Patient would be started on insulin drip while in the ICU. Anion gap would close and the patient would be transitioined to a diet. Blood sugars would remain stable once restarting her insulin pump. She will cotninue following with her personal feller seam operator outpatient. Follow up with PCP in one week. Vital signs were stable on discharge. Patient understood and agreed with discharge plan You may be receiving a survey about your experience. We really value your feedback. If you would fill out the survey, it would help us tremendously as we continue to improve. Kyara Luis RN February 08, 2023 11:36 [facility]06-14-2023 History of Present illness Narrative* Kyara Luis RN - 02/08/2023 11:34 AM EDTSummary: TCM call Provider Update: Patient Concerns: Needs from Physician/Office: Call Summary: Call placed to Kathleen Vlila for transitional care management follow-up call. Spoke with patient, introduced self, explained role, discharge instructions and medications reviewed with patient. States that she has history of gastroparesis, follow up yesterday with GI and medication changes made, will clam picker new medication from her pharmacy. States that vomiting has resolved, tolerating diet, does have nausea and is on compazine and phenergan at home. Monitors blood sugar 5 times per day, FBSthis am 131, has insulin pump and adjust according to carbohydrate intake. Currently waiting on continuous glucose monitor that was ordered at her last endocrinology appointment through [facility], patient calling today to follow up [...] -Admitted for: Vomiting/diabetic gastroparesis -Pt discharged from [facility] on 02/04. -Follow up appointment: Has had f/u with GI, declines sooner PCP appointment at this time . -Medication review completed. NEW OR CHANGED MEDICATIONS:NA MEDS HELD/DISCONTINUED:NA BRIEF HOSPITAL COURSE: 27-year-old white female who presented 2 days ago on 01/31 secondary to nausea and vomiting at home. Patient has a known history of diabetic gastroparesis. She follows in [facility]. She was admitted to [place]. Unfortunately she has not been tolerating p.o. intake with the exception of some ice chips Patient would be started on insulin drip while in the ICU. Anion gap would close and the patient would be transitioined to a diet. Blood sugars would remain stable once restarting her insulin pump. She will cotninue following with her personal feller seam operator outpatient. Follow up with PCP in one week. Vital signs were stable on discharge. Patient understood and agreed with discharge plan You may be receiving a survey about your experience. We really value your feedback. If you would fill out the survey, it would help us tremendously as we continue to improve. Kyara Luis RN February 08, 2023 11:36 AM documented in this encounterRegency [facility]-12-2023 NotePatient Outreach (MRCAC) KATHLEEN VILLA ([id number]) 1995 F CHT Date Time Provider Department 02/06/23 KYARA LUIS During your visit today, we recorded the following information about you: Kyara Luis RN 02/06/2023 11:56 AM Signed TRANSITION CARE MANAGEMENT (TCM) FOLLOW-UP NOTE Provider Action/FYI Patient identified by name and date of : YES Summary: Transitional care call placed to patient, message left to return my call at [phone] ext [phone] Salvage Cutter plan for next outreach: Will follow up [...] 02/01/2023 Encounter Status:Closed by KYARA LUIS on 02/06/23[facility] 02-06-2023 NoteHNO ID: [id number] Author: Kyara Luis RN Service: ? Author Type: Registered Nurse Type: Progress Notes Filed: 02/06/2023 11:56 AM Note Text: Summary: TCM call TRANSITION CARE MANAGEMENT (TCM) FOLLOW-UP NOTE Provider Action/FYI Patient identified by name and date of : YES Summary: Transitional care call placed to patient, message left to return my call at [phone] ext [phone] Salvage Cutter plan for next outreach: Will follow up this week Signature Kyara Luis RN February 06, 2023[facility]06-09-2023 NoteHNO ID: [id number] Author: Clemencia Rivera RN Service: PICC Team Author Type: Registered Nurse Type: Procedures Filed: 02/03/2023 2:30 PM Note Text: MIDLINE INSERTION PROCEDURE NOTE - PICC TEAM NURSES DATE OF PROCEDURE: 02/03/2023 TIME OF PROCEDURE: 1420 ORDERING PHYSICIAN: Juan Carlos Leroy CNP Indications for line placement: Intravenous access Condition of line placement: Sterile Primary Proceduralist: Lewis Fuentes RN Development Analyst: Clemencia Rivera RN Pre-procedure Review: ALLERGIES [...] RN Midline Catheter Placement: Brand: BARD Lot: [id number] Number of lumens: 1 Type of Midline: Power Injectable Midline Lumen size: 3 Albanian Placement Technique: Lidocaine: Yes, Lidocaine 1% Volume [...] or problems: Call Vascular Access Nurse on [facility] SIGNATURE: Clemencia Rivera RN PATIENT NAME: Kathleen Villa DATE: February 03, 2023 TIME: 2:24 PM PAGER: Call Vascular Access Nurse on [facility] 02-03-2023 NoteHNO ID: [id number] Author: Mary Ordoñez RN Service: Nursing Author Type: Registered Nurse Type: Nursing Progress Note Filed: 02/03/2023 1:55 PM Note Text: Vascular access team at bedside setting up for ordered midline IV placement at this time.[facility]06-09-2023 NoteHNO ID: [id number] Author: Rubio Diana MD Service: Critical Care Author Type: Physician Type: Progress Notes Filed: 02/03/2023 11:39 AM Note Text: [facility] STAFF PHYSICIAN NOTE OF PERSONAL INVOLVEMENT [...] of care, medical plan for the day, it sales consultant recommendations, medical disposition and current [...] Diana MD [facility] DATE of SERVICE: 02/03/2023[facility]06-09-2023 NoteHNO ID: [id number] Author: Yimi Leroy APRN.FRIEDA Service: Critical Care [...] 21 URINALYSIS: Recent Lab (more content not included)...[facility]06-08-2023 NoteHNO ID: [id number] Author: Rubio Diana MD Service: Critical Care Author Type: Physician Type: Progress Notes Filed: 02/02/2023 2:32 PM Note Text: [facility] STAFF PHYSICIAN NOTE OF PERSONAL INVOLVEMENT [...] of care, medical plan for the day, it sales consultant recommendations, medical disposition and current [...] Diana MD [facility] DATE of SERVICE: 02/02/2023[facility]06-08-2023 NoteHNO ID: [id number] Author: Alex Mccray MD Service: Hospital Medicine Author Type: Physician Type: Progress Notes Filed: 02/02/2023 9:37 AM Note Text: INPATIENT PROGRESS NOTE SERVICE DATE: 02/02/2023 SERVICE TIME: 9:03 AM SUBJECTIVE: CHIEF COMPLAINT: Nausea, vomiting, abdominal pain INTERVAL HPI: Patient seen and examined. Patient is 27-year-old female with history of diabetes, gastroparesis, follows with sign language interpreter at [facility] who presented for abdominal pain, nausea, vomiting [...] bilaterally.] SKIN: [Clear, no evidence of bleeding.] ESCALATOR MECHANIC: [Patient awake, alert, oriented ?3. No focal [...] with history of diabetes, gastroparesis, follows with sign language interpreter at [facility] who presented for abdominal pain, nausea, vomiting for 1 day and on evaluation she was thought to have gastroparesis episode for which s (more content not included)...[facility]06-07-2023 NoteHNO ID: [id number] Author: Alex Mccray MD Service: Hospital Medicine Author Type: Physician Type: Progress Notes Filed: 02/02/2023 8:24 AM Note Text: INPATIENT PROGRESS NOTE SERVICE DATE: 02/01/2023 SERVICE TIME: 11:38 AM SUBJECTIVE: CHIEF COMPLAINT: Nausea, vomiting, abdominal pain INTERVAL HPI: Patient seen and examined. Patient is 27-year-old female with history of diabetes, gastroparesis, follows with sign language interpreter at [facility] who presented for abdominal pain, nausea, vomiting [...] bilaterally.] SKIN: [Clear, no evidence of bleeding.] ESCALATOR MECHANIC: [Patient awake, alert, oriented ?3. No focal [...] bowel. Consider CT if concern remains high. Director Of Preclinical Research: CONCHITA Transcribe Date/Time: Jan 31 2023 7:56P [...] QTC Calculation (Bazett) 463 ms Calculated P [place] 26 degrees Calculated R [place] 78 degrees Calculated T [place] 72 degrees Narrative NAME : KATHLEEN VILLA PID : [id number] : 1995 Gender : Female Race : ORD : [id number] Procedure Date : Jan 31 2023 19:42:30 Edit Date : Jan 31 2023 23:03:15 Diagnosis: Normal sinus rhythm Nonspecific T wave abnormality Abnormal ECG When compared with ECG of 29-MAR-2023 18:14, Nonspecific T wave abnormality now evident in Lateral leads QT has lengthened Confirmed by ANASTASIA CHENG MD ([id number]) on 01/31/2023 11:03:12 PM Test Reason : [...] has lengthened Confirmed by ANASTASIA CHENG MD ([id number]) on 01/31/2023 11:03:12 PM CBC + DIFF [...] 4.00 k/uL Monocytes % 4.7 % Abs [place] 0.73 <0.87 k/uL Eosinophils % 0.1 % Abs Eosin <0.03 <0.46 k/uL Basophils % 0.5 % Abs Baso 0.07 <0.11 k/uL (more content not included)...[facility]06-07-2023 Miscellaneous Notes * Telephone Encounter - Radha Mandel MA - 02/01/2023 10:36 AM EDT Spoke with patient and she voiced understanding. * Telephone Encounter - Radha Mandel MA - 02/01/2023 10:35 AM EDT ----- Message from Vivi Smith MD sent at 01/27/2023 8:53 AM EDT ----- Please call and notify patient no signs of UTI on urine culture documented in this encounterRegency Hospital [facility]05-31-2023 NoteHNO ID: [id number] Author: Radha Mandel MA Service: ? Author Type: Tours Captain Type: Progress Notes Filed: 01/25/2023 1:01 PM Note Text: Patient here today to recollect urine as previous urine culture was contaminated. Patient concerned as that was her second collection with multiple bacteria. Urine collected, dipped, and sent out for culture.[facility]05-31-2023 History of Present illness Narrative* Autumn Valadez APRN.FORESTRY TECHNICAL OFFICER - 01/25/2023 1:30 PM EDT Images from [...] (BAQSIMI) 3 mg/actuation nasal spray Use 1 [place] in the nose as needed for low [...] Other maternal great grandma I reviewed the Tours Captain's notes with this visit for vital signs, [...] office visit notes from today faxed to [facility] in order to receive her Guardian [...] hyperglycemia, with long-term current use of insulin ([facility]) (primary encounter diagnosis) (Z96.41) Insulin pump status [...] with FRIEDA Urena APRN.FRIEDA [facility] [place] Some elements in this note were copied from my last note and have been updated as appropriate and reflect medical decision making today. documented in this encounterRegency Hospital [facility]05-31-2023 History of Present illness Narrative* Radha Mandel MA - 01/25/2023 12:59 PM EDT Patient here today to recollect urine as previous urine culture was contaminated. Patient concernedas that was her second collection with multiple bacteria. Urine collected, dipped, and sent out forculture. documented in this encounterRegency Hospital [facility]05-31-2023 Miscellaneous Notes* Telephone Encounter - Radha Mandel [...] based on this specimen documented in this encounterRegency Hospital [facility]05-30-2023 Miscellaneous Notes* Telephone Encounter - Vivi Smith MD - 01/24/2023 11:58 AM EDT Port Flush order in Outbox on RX paper as unable to write order in Epic * Telephone Encounter - Radha Mandel MA - 01/24/2023 11:37 AM EDT Yaima from [facility] called and they need an order for a port flush. Pleaseplace order and I will fax. documented in this encounterRegency Hospital [facility]05-26-2023 NoteHNO ID: [id number] Author: Nicolette Cox LPN Service: ? Author Type: LICENSED NURSE Type: Progress Notes Filed: 01/20/2023 3:16 PM Note Text: Gilda presents today for a 1 month follow up visit.Gilda continues to c/o abdominal pain that radiates to her back. She states she did not follow up with pain management.[facility]05-26-2023 NoteHNO ID: [id number] Author: Vivi Smith MD Service: ? Author [...] 200s/. She sees Endo next week. Seeing CERTIFIED GENETIC COUNSELOR and had recent negative pap smear and [...] (BAQSIMI) 3 mg/actuation nasal spray Use 1 [place] in the nose as needed for low [...] movements intact. Conjunctiva/sclera: Conjunc (more content not included)...[facility] 01-12-2023 NoteHNO ID: [id number] Author: Madonna Toro, DO Service: ? Author [...] fevers GI: No nausea, vomiting, or diarrhea RESIDENTIAL FEE APPRAISER: Negative for abnormal vaginal bleeding, abnormal vaginal [...] 2 IG Call with results. Madonna Toro, [facility]05-18-2023 NoteHNO ID: [id number] Author: Faviola Engle MA Service: ? Author Type: Tours Captain Type: Progress Notes Filed: 01/12/2023 1:32 PM Note Text: Pt was exposed to a std.[facility]05-16-2023 Miscellaneous Notes* Telephone Encounter - Dori Chapman RN - 01/10/2023 8:58 AM EDT I called pt - pt confirmed 1:00p on documented in this encounterRegency Hospital [facility]05-09-2023 Miscellaneous Notes* Telephone Encounter - Lucius Santillan [...] forwarded to: SILVINO Trujillo documented in this encounterRegency Hospital [facility]04-14-2023 Miscellaneous Notes* Telephone Encounter - Nicolette Cox [...] message for Dr. Johansen who is [facility], GI doctor she previously seen. She states she was sent home with a prescription for hydrocodone #12 tablets. She is asking if you can continue to prescribe pain medication until she gets in with GI doctor. Please advise. She states she scheduled a follow up appt with you on 01/20/23 but wants to know if you want to seeher sooner. documented in this encounterRegency Hospital [facility]04-13-2023 History of Present illness Narrative* Nicolette Cox [...] hyperglycemia, with long-term current use of insulin ([facility]); Insulin pump status blood sugar diagnostic (CONTOUR NEXT TEST STRIPS) test strip Use as instructed to check blood glucose 5 times daily. E10.65 Qty: 500 Strip Refills: 3 Associated Diagnoses:Type 1 diabetes mellitus with hyperglycemia, with long-term current use of insulin ([facility]); Insulin pump status BAQSIMI 3 mg Use 3 mg in the nose as needed for low blood sugar. <span hidden class=[email or web address]></span>May repeat after 15 minutes using a new device if there is no response. Qty: 2 Each Refills: 2 Associated Diagnoses:Type 1 diabetes mellitus with hyperglycemia, with long-term current use of insulin ([facility]); Insulin pump status glucose 16 g Take 16 g by mouth as needed. Qty: 100 tablet Refills: 11 Associated Diagnoses:Type 1 diabetes mellitus with hyperglycemia, with long-term current use of insulin ([facility]); Insulin pump status insulin glargine (LANTUS SOLOSTAR, BASAGLAR KWIKPEN) 100 unit/mL (3 mL) Inject 43 Units subcutaneously as directed in the event of Insulin pump failure. Qty: 15 mL Refills: 1 Comments: Generic or brand: dispense product preferred by patient/insurance unless BRET flag is selected. Associated Diagnoses:Type 1 diabetes mellitus with hyperglycemia, with long-term current use of insulin ([facility]); Insulin pump status Acetone, Urine, Test (KETONE URINE TEST) Use as directed Qty: 100 Strip Refills: 5 Associated Diagnoses: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 ([facility]) hydrOXYzine HCl (ATARAX) 50 mg Take 50 mg by mouth every 6 hours as needed. FUTURE APPOINTMENTS: Follow Up with Gastroenterology: Ricci Burgess MD Discharge Information Row Name ED to Hosp-Admission (Current) from 11/23/2022 in [facility] Medical Follow-Up Appointment Specialty Primary Care Provider Provider Name Dr. Smith Address [address], [place] [address] Appointment Date 12/08/22 Appointment Time 1:45pm The [...] type 1 with gastroparesis: Patient follows with sign language interpreter Dr. Leticia Hylton with several smart pill [...] tree and pancreatic region SIGNATURE: Kathleen Hicks APRN.FORESTRY TECHNICAL OFFICER PAST MEDICAL HISTORY Diagnosis Date Anxiety disorder [...] (BAQSIMI) 3 mg/actuation nasal spray Use 1 [place] in the nose as needed for low [...] pain is different Will refer down to [facility] ED for further evaulation Stable at the moment Unclear etiology On Insulin Pump. HBA1c 3 months ago was 7 Noted Stable Pain out of portion. Sent by private vehicle to rule out blood clot/mesenteric ischemia and furtheretiologies. Vivi Smith MD documented in this encounterRegency Hospital [facility]04-10-2023 Miscellaneous Notes* Telephone Encounter - Lisa Aguilar LPN - 12/05/2022 3:09 PM EDT Form faxed to [facility]. Lisa Aguilar LPN * Telephone Encounter - Autumn Valadez APRN.CNP - 12/05/2022 12:32 PM EDT Signed Autumn Valadez APRN.FRIEDA * Telephone Encounter - Lisa Aguilar LPN - 12/05/2022 10:04 AM EDT JOSE:08/16/2022 NOV: 12/07/2022 Called patient Verified she has new pump medtronic 770G and will be meeting with [facility] for education on newpump. Patient currently [...] PM EDT Form and documentation faxed to [facility]. Lisa Aguilar LPN * Telephone Encounter - Kvng Lewis MD - 11/08/2022 12:49 PM EDT Form signed. * Telephone Encounter - Florence Murillo RN - 11/07/2022 3:19 PM EDT Received form from [facility] Medical Form, 6 months of OV notes and CGM download on desk, please sign * Telephone Encounter - Lisa Aguilar LPN - 11/04/2022 11:15 AM EST Completed form faxed to [facility]. Lisa Aguilar LPN * Telephone Encounter [...] date of : Yes Type of form: [facility] MEDICAL / CGM Form received via: Fax When form is completed, fax form to fax number provided.[phone] Form has been forwarded to: SILVINO Hayes Pss documented in this encounterRegency Hospital [facility]03-29-2023 History of Past illness Narrative* Problem Noted [...] 02/25/2014 morning - On fentanyl gtt per DIESEL INSTRUCTOR Plan: - DIESEL INSTRUCTOR team to round on patient and manage [...] --- Follows with Dr. Garcia at [facility] Plan: - Continuous monitoring - F/u DIESEL INSTRUCTOR recs GBS (group B Streptococcus carrier), +RV culture @ 22 wks 11/11/2013 04/16/2014 Hypertension in , antepartum 09/19/2013 01/08/2014 DVT prophylaxis 12/25/2012 09/04/2013 Overview: IPCs DISPOSITION AND FOLLOW-UP 12/25/20122013 Overview: Full code Retinal detachment 10/26/2012 12/25/2012 documented as of this encounter (statuses as of 12/09/2022) [facility]03-29-[facility] History of Past illness Narrative* Problem Noted [...] 02/25/2014 morning - On fentanyl gtt per DIESEL INSTRUCTOR Plan: - DIESEL INSTRUCTOR team to round on patient and manage [...] --- Follows with Dr. Garcia at [facility] Plan: - Continuous monitoring - F/u DIESEL INSTRUCTOR recs GBS (group B Streptococcus carrier), +RV culture @ 22 wks 11/11/2013 04/16/2014 Hypertension in , antepartum 09/19/2013 01/08/2014 DVT prophylaxis 12/25/2012 09/04/2013 Overview: IPCs DISPOSITION AND FOLLOW-UP 12/25/20122013 Overview: Full code Retinal detachment 10/26/2012 12/25/2012 documented as of this encounter (statuses as of 12/09/2022) [facility] History of Past illness Narrative* Problem Noted [...] 02/25/2014 morning - On fentanyl gtt per DIESEL INSTRUCTOR Plan: - DIESEL INSTRUCTOR team to round on patient and manage [...] --- Follows with Dr. Garcia at [facility] Plan: - Continuous monitoring - F/u DIESEL INSTRUCTOR recs GBS (group B Streptococcus carrier), +RV culture @ 22 wks 11/11/2013 04/16/2014 Hypertension in , antepartum 09/19/2013 01/08/2014 DVT prophylaxis 12/25/2012 09/04/2013 Overview: IPCs DISPOSITION AND FOLLOW-UP 12/25/20122013 Overview: Full code Retinal detachment 10/26/2012 12/25/2012 documented as of this encounter (statuses as of 01/03/2023) [facility] History of Past illness Narrative* Problem Noted [...] 02/25/2014 morning - On fentanyl gtt per DIESEL INSTRUCTOR Plan: - DIESEL INSTRUCTOR team to round on patient and manage [...] --- Follows with Dr. Garcia at [facility] Plan: - Continuous monitoring - F/u DIESEL INSTRUCTOR recs GBS (group B Streptococcus carrier), +RV culture @ 22 wks 11/11/2013 04/16/2014 Hypertension in , antepartum 09/19/2013 01/08/2014 DVT prophylaxis 12/25/2012 09/04/2013 Overview: IPCs DISPOSITION AND FOLLOW-UP 12/25/20122013 Overview: Full code Retinal detachment 10/26/2012 12/25/2012 documented as of this encounter (statuses as of 01/10/2023) [facility] History of Past illness Narrative* Problem Noted [...] 02/25/2014 morning - On fentanyl gtt per DIESEL INSTRUCTOR Plan: - DIESEL INSTRUCTOR team to round on patient and manage [...] --- Follows with Dr. Garcia at [facility] Plan: - Continuous monitoring - F/u DIESEL INSTRUCTOR recs GBS (group B Streptococcus carrier), +RV culture @ 22 wks 11/11/2013 04/16/2014 Hypertension in , antepartum 09/19/2013 01/08/2014 DVT prophylaxis 12/25/2012 09/04/2013 Overview: IPCs DISPOSITION AND FOLLOW-UP 12/25/20122013 Overview: Full code Retinal detachment 10/26/2012 12/25/2012 documented as of this encounter (statuses as of 01/24/2023) [facility] History of Past illness Narrative* Problem Noted [...] 02/25/2014 morning - On fentanyl gtt per DIESEL INSTRUCTOR Plan: - DIESEL INSTRUCTOR team to round on patient and manage [...] --- Follows with Dr. Garcia at [facility] Plan: - Continuous monitoring - F/u DIESEL INSTRUCTOR recs GBS (group B Streptococcus carrier), +RV culture @ 22 wks 11/11/2013 04/16/2014 Hypertension in , antepartum 09/19/2013 01/08/2014 DVT prophylaxis 12/25/2012 09/04/2013 Overview: IPCs DISPOSITION AND FOLLOW-UP 12/25/20122013 Overview: Full code Retinal detachment 10/26/2012 12/25/2012 documented as of this encounter (statuses as of 01/25/2023) [facility] History of Past illness Narrative* Problem Noted [...] 02/25/2014 morning - On fentanyl gtt per DIESEL INSTRUCTOR Plan: - DIESEL INSTRUCTOR team to round on patient and manage [...] --- Follows with Dr. Garcia at [facility] Plan: - Continuous monitoring - F/u DIESEL INSTRUCTOR recs GBS (group B Streptococcus carrier), +RV culture @ 22 wks 11/11/2013 04/16/2014 Hypertension in , antepartum 09/19/2013 01/08/2014 DVT prophylaxis 12/25/2012 09/04/2013 Overview: IPCs DISPOSITION AND FOLLOW-UP 12/25/20122013 Overview: Full code Retinal detachment 10/26/2012 12/25/2012 documented as of this encounter (statuses as of 01/25/2023) [facility] History of Past illness Narrative* Problem Noted [...] 02/25/2014 morning - On fentanyl gtt per DIESEL INSTRUCTOR Plan: - DIESEL INSTRUCTOR team to round on patient and manage [...] --- Follows with Dr. Garcia at [facility] Plan: - Continuous monitoring - F/u DIESEL INSTRUCTOR recs GBS (group B Streptococcus carrier), +RV culture @ 22 wks 11/11/2013 04/16/2014 Hypertension in , antepartum 09/19/2013 01/08/2014 DVT prophylaxis 12/25/2012 09/04/2013 Overview: IPCs DISPOSITION AND FOLLOW-UP 12/25/20122013 Overview: Full code Retinal detachment 10/26/2012 12/25/2012 documented as of this encounter (statuses as of 01/25/2023) [facility] History of Past illness Narrative* Problem Noted [...] 02/25/2014 morning - On fentanyl gtt per DIESEL INSTRUCTOR Plan: - DIESEL INSTRUCTOR team to round on patient and manage [...] --- Follows with Dr. Garcia at [facility] Plan: - Continuous monitoring - F/u DIESEL INSTRUCTOR recs GBS (group B Streptococcus carrier), +RV culture @ 22 wks 11/11/2013 04/16/2014 Hypertension in , antepartum 09/19/2013 01/08/2014 DVT prophylaxis 12/25/2012 09/04/2013 Overview: IPCs DISPOSITION AND FOLLOW-UP 12/25/20122013 Overview: Full code Retinal detachment 10/26/2012 12/25/2012 documented as of this encounter (statuses as of 01/26/2023) [facility] History of Past illness Narrative* Problem Noted [...] 02/25/2014 morning - On fentanyl gtt per DIESEL INSTRUCTOR Plan: - DIESEL INSTRUCTOR team to round on patient and manage [...] --- Follows with Dr. Garcia at [facility] Plan: - Continuous monitoring - F/u DIESEL INSTRUCTOR recs GBS (group B Streptococcus carrier), +RV culture @ 22 wks 11/11/2013 04/16/2014 Hypertension in , antepartum 09/19/2013 01/08/2014 DVT prophylaxis 12/25/2012 09/04/2013 Overview: IPCs DISPOSITION AND FOLLOW-UP 12/25/20122013 Overview: Full code Retinal detachment 10/26/2012 12/25/2012 documented as of this encounter (statuses as of 01/26/2023) [facility]03-29-2023 History of Past illness Narrative* Problem Noted [...] 02/25/2014 morning - On fentanyl gtt per DIESEL INSTRUCTOR Plan: - DIESEL INSTRUCTOR team to round on patient and manage [...] --- Follows with Dr. Garcia at [facility] Plan: - Continuous monitoring - F/u DIESEL INSTRUCTOR recs GBS (group B Streptococcus carrier), +RV culture @ 22 wks 11/11/2013 04/16/2014 Hypertension in , antepartum 09/19/2013 01/08/2014 DVT prophylaxis 12/25/2012 09/04/2013 Overview: IPCs DISPOSITION AND FOLLOW-UP 12/25/20122013 Overview: Full code Retinal detachment 10/26/2012 12/25/2012 documented as of this encounter (statuses as of 02/01/2023) [facility]03-13-2023 History of Present illness Narrative* Abelardo La [...] (BAQSIMI) 3 mg/actuation nasal spray Use 1 [place] in the nose as needed for low [...] as needed Abelardo La documented in this encounterReg[facility]03-09-2023 Miscellaneous Notes* Telephone Encounter - Florence Murillo [...] name: Dr Joshua Maria documented in this encounterReg[facility]02-25-2023 History of Present illness Narrative* Mary Cha [...] (BAQSIMI) 3 mg/actuation nasal spray Use 1 [place] in the nose as needed for low [...] INTRAMUSCULAR SOLUTION Abelardo La documented in this encounterRegency [facility]02-07-2023 History of Present illness Narrative* Leesa Huddleston PA-C - 10/04/2022 2:00 PM EST DATE OF SERVICE: 10/04/2022 PATIENT NAME: Kathleen Villa : 1995 AGE: 27 y.o. CLINIC NUMBER: [id number] Visit type: Established patient Chief Complaint Patient [...] 2:01 PM REFERRING MD: documented in this encounterSCleveland Clinic [id number] Miscellaneous Notes* Telephone Encounter - David De Jesus RN - 09/07/2022 4:16 PM EST Completed PA via [employer]. CaseId:[id number]; Status:Approved; Valid08/08/2022 - 09/07/2023; Patient notified. * [...] medtronic pump, if possible. documented in this encounterRegency [facility]12-22-2022 Miscellaneous Notes* Telephone Encounter - Lisa Aguilar LPN - 08/18/2022 3:37 PM EST Faxed completed form, last 2 Visit Progress Notes and pump upload to [facility] medical. Lisa Aguilar LPN * Telephone Encounter - Autumn Valadez APRN.FORESTRY TECHNICAL OFFICER - 08/18/2022 3:28 PM EST Formsigned Autumn [...] PM EST Forms received via fax from [facility] Medical for CGM and pump supplies. [...] you, Lisa Aguilar LPN documented in this encounterRegency Hospital [facility]12-20-2022 History of Present illness Narrative* Autumn Valadez APRN.FORESTRY TECHNICAL OFFICER - 08/16/2022 2:45 PM EST Images from [...] (BAQSIMI) 3 mg/actuation nasal spray Use 1 [place] in the nose as needed for low [...] Other maternal great grandma I reviewed the Tours Captain's notes with this visit for vital signs, [...] patient is currently taking Novolog insulin via [employer] Consult[employer]tronic 630G insulin pump in manual mode at [...] hyperglycemia, with long-term current use of insulin ([facility]) (primary encounter diagnosis) (Z96.41) Insulin pump status [...] November with Dr. Lewis 6 mo with sc Autumn Valadez APRN.[facility]ocrin[facility] [place] documented in this encounterRegency Hospital [facility]11-14-2022 History of Present illness Narrative* Kvng Lewis MD - 07/11/2022 11:00 AM EST VIRTUAL VISIT DIABETES NOTE Reason for Consultation: DM Type 1 HISTORY OF PRESENT ILLNESS: Ms. Villa is a 26 year old female presenting here today for a follow up of DM Type 1. She would like to transfer to care Dr. Khoury Lives in [place] Type 1 dx age 14 ( 12 [...] due to convenient location She lives in [place]. Dr. Khoury was managing patient during her [...] mouth every 6 hours as needed. lancets ([employer]com[employer]OUCH DELMuzooka LANCETS) 30 gauge 10 x daily DX [...] year old female is being evaluated via [facility] for DM1 Complicated patient with [...] encourage patient to schedule appt with our AFTER SCHOOL TEACHER Autumn Valadez in the next 1-3 mos in person See me after 3 mos after h/o abnormal TSH I have place another order for TSH/ Free T4 and TPO AB Will also place another order for HGa1c as it is has been over 6mos Kvng Lewis MD I spent a total of 40 minutes on the date of the service which included [id number] patient care, completing clinical documentation, performing a [...] Yes Heat Intolerance?: Yes documented in this encounterRegency [facility]11-09-2022 Miscellaneous Notes* Telephone Encounter - Lisa Aguilar [...] the nurse. She can be reached at [phone] documented in this [facility]10-20-2022 Miscellaneous Notes* Telephone Encounter - Anahi Benito MA - 06/16/2022 9:29 AM EDT Received [employer] form and placed on physicians desk for review. Form faxed with confirmation. documented in this [facility]10-12-2022 Miscellaneous Notes* Telephone Encounter - [...] fax form to fax number provided # [phone] Form has been forwarded to: SILVINO/nidia documented in this [facility]10-11-2022 History of Present illness Narrative* Phoebe Richter , POT MAKER.FORESTRY TECHNICAL OFFICER - 06/07/2022 2:25 PM EDT Kathleen Villa [...] done swinging. RTC- 1 yr/prn Phoebe Mckeon APRN.FORESTRY TECHNICAL OFFICER documented in this encounterRegency Hospital [facility]10-11-2022 Nurse Note* Alysha Petersen MA - 06/07/2022 2:11 PM EDT Pt is here today for JASON. Pt has no concerns at this time. documented in this encounterRegency Hospital [facility]09-16-2022 Miscellaneous Notes* Telephone Encounter - Anahi Benito MA - 05/13/2022 12:23 PM EDT Received [employer] and [employer] forms for pump/cgm supplies. Patient next visit is in June and has not been seen since 08/24/2021. Xtone message sent to patient requesting pump upload. documented in this encounterRegency Hospital [facility]09-15-2022 Nurse Note* Zohreh Rodarte LPN - 05/12/2022 10:15 AM EDT Pt given 2 doses of Rocephin 250 mg, total 500 mg in the left buttock. Pt tolerated injection well.BP 110/70. documented in this encounterRegency Hospital [facility]09-15-2022 History of Present illness Narrative* Phoebe Mckeon APRN.CNP - 05/12/2022 9:34 AM EDT . documented in this encounterRegency Hospital [facility]09-13-2022 Miscellaneous Notes* Telephone Encounter - Dori Chapman [...] Thanks Phoebe Mckeon APRN.CNP documented in this encounterRegency Hospital [facility]09-07-2022 Miscellaneous Notes* Telephone Encounter - Sol Choe [...] for insulin aspart U-100 documented in this encounterRegency Hospital [facility]09-06-2022 Miscellaneous Notes* Telephone Encounter - Darnell Vera RN - 05/03/2022 11:49 AM EDT Pended - please file if appropriate. documented in this encounterRegency Hospital [facility]09-06-2022 Miscellaneous Notes* Telephone Encounter - Clemencia Ma [...] scheduled appointment Yes documented in this encounterCleveland [id number] Instructions* Patient Instructions* Dashawn Cain APRN.CNP - 04/18/2022 8:39 AM EDT Labs ordered- urine tests. Have done at Urgent care or main hospital. We will call with results. Referral placed to RESIDENTIAL FEE APPRAISER clinic at [facility]. This should get in contact with you within the next couple weeks if not you may call central scheduling at [phone] to inquire about your appointment. documented in this encounterRegency Hospital [facility]08-22-2022 History of Present illness Narrative* Dashawn Cain APRN.CNP - 04/18/2022 8:22 AM EDT This note was created using [employer]. Subjective Kathleen Villa is a 26 year [...] apparently. She does not have a current DIESEL INSTRUCTOR. Her previous RESIDENTIAL FEE APPRAISER is Dr. Kristin Garcia at [facility]. She had noticed some mild discharge. She [...] TABLET This note was partially generated using [employer] voice recognition system. Dashawn Cain APRN.FORESTRY TECHNICAL OFFICER documented in this encounterRegency Hospital [facility]07-15-2022 History of Present illness Narrative* Teressa Mckoy RN - 03/11/2022 1:10 PM EDT 2mg/2ml Activase instilled in port at 1207. Blood return obtained at 1255. 10ml withdrawn and discarded. Port flushed with saline and heparin per protocol. documented in this [facility]07-11-2022 History of Present illness Narrative* Teressa Mckoy RN - 03/07/2022 4:38 PM EDT Unable to obtain blood return. Will notify ordering practitioner for Activase order. Patient reports unable to stay today. Will return Monday03/11/22. documented in this encounterRegency Hospital [facility]06-07-2022 [facility]05-06-2022 Miscellaneous Notes* Telephone Encounter - Anahi Haywood MA - 12/31/2021 11:44 AM EDT Received [facility] Medical request for most recent office notes and CGM data. Office notes printed for physicians signature. Called patient on mobile number and advised if she can upload her pump. Patient stated she is not at home and will upload as soon as she can. Advised patient no problem and she cansend Calligo message once upload is completed. Patient voiced understanding. documented in this encounterRegency Hospital [facility]05-05-2022 [facility]05-03-2022 Evaluation + Plan note Diagnostic Tests Pending * Complete Metabolic Panel 12/28/21 * Lipase Level 12/28/21 [facility] 04-30-2022 [facility]04-30-2022 Miscellaneous Notes* Telephone Encounter - Velia Kaur MD - 12/25/2021 12:42 PM EDT 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 She is out of infusion sets for [...] she has any difficulties. documented in this encounterRegency Hospital [facility]04-11-2022 Miscellaneous Notes* Telephone Encounter - Loretta Brown Ma - 12/06/2021 9:00 AM EDT received a fax from [employer] Patient has been approved for insulin aspart U-100 (NOVOLOG U-100 INSULIN ASPART) 100 unit/mL from 11/02/2021 to 12/04/2022 No further action is needed documented in this encounterRegency Hospital [facility]02-28-2022 [facility]02-25-2022 [facility]02-15-2022 Miscellaneous Notes* Telephone Encounter - Jess Guardado - 10/12/2021 10:25 AM EST Left VM for patient to call office to offer sooner apt with JOCELYNE Mcdonald. documented in this encounterRegency Hospital [facility]10-09-2021 [facility]06-02-2016 History of Past illness Narrative* Problem [...] 02/25/2014 morning - On fentanyl gtt per DIESEL INSTRUCTOR Plan: - DIESEL INSTRUCTOR team to round on patient and manage [...] --- Follows with Dr. Garcia at [facility] Plan: - Continuous monitoring - F/u DIESEL INSTRUCTOR recs GBS (group B Streptococcus carrier), +RV culture @ 22 wks 11/11/2013 04/16/2014 Hypertension in , antepartum 09/19/2013 01/08/2014 DVT prophylaxis 12/25/2012 09/04/2013 Overview: IPCs DISPOSITION AND FOLLOW-UP 12/25/20122013 Overview: Full code Retinal detachment 10/26/2012 12/25/2012 documented as of this encounter (statuses as of 11/26/2021) [facility]06-02[facility]2016 History of Past illness Narrative* Problem Noted [...] 02/25/2014 morning - On fentanyl gtt per DIESEL INSTRUCTOR Plan: - DIESEL INSTRUCTOR team to round on patient and manage [...] --- Follows with Dr. Garcia at [facility] Plan: - Continuous monitoring - F/u DIESEL INSTRUCTOR recs GBS (group B Streptococcus carrier), +RV culture @ 22 wks 11/11/2013 04/16/2014 Hypertension in , antepartum 09/19/2013 01/08/2014 DVT prophylaxis 12/25/2012 09/04/2013 Overview: IPCs DISPOSITION AND FOLLOW-UP 12/25/20122013 Overview: Full code Retinal detachment 10/26/2012 12/25/2012 documented as of this encounter (statuses as of 11/27/2021) [facility]06-02[facility]2016 History of Past illness Narrative* Problem Noted [...] 02/25/2014 morning - On fentanyl gtt per DIESEL INSTRUCTOR Plan: - DIESEL INSTRUCTOR team to round on patient and manage [...] --- Follows with Dr. Garcia at [facility] Plan: - Continuous monitoring - F/u DIESEL INSTRUCTOR recs GBS (group B Streptococcus carrier), +RV culture @ 22 wks 11/11/2013 04/16/2014 Hypertension in , antepartum 09/19/2013 01/08/2014 DVT prophylaxis 12/25/2012 09/04/2013 Overview: IPCs DISPOSITION AND FOLLOW-UP 12/25/20122013 Overview: Full code Retinal detachment 10/26/2012 12/25/2012 documented as of this encounter (statuses as of 12/06/2021) [facility]06-[facility] History of Past illness Narrative* Problem Noted [...] 02/25/2014 morning - On fentanyl gtt per DIESEL INSTRUCTOR Plan: - DIESEL INSTRUCTOR team to round on patient and manage [...] --- Follows with Dr. Garcia at [facility] Plan: - Continuous monitoring - F/u DIESEL INSTRUCTOR recs GBS (group B Streptococcus carrier), +RV culture @ 22 wks 11/11/2013 04/16/2014 Hypertension in , antepartum 09/19/2013 01/08/2014 DVT prophylaxis 12/25/2012 09/04/2013 Overview: IPCs DISPOSITION AND FOLLOW-UP 12/25/20122013 Overview: Full code Retinal detachment 10/26/2012 12/25/2012 documented as of this encounter (statuses as of 12/26/2021) [facility]06-[facility] History of Past illness Narrative* Problem Noted [...] 02/25/2014 morning - On fentanyl gtt per DIESEL INSTRUCTOR Plan: - DIESEL INSTRUCTOR team to round on patient and manage [...] --- Follows with Dr. Garcia at [facility] Plan: - Continuous monitoring - F/u DIESEL INSTRUCTOR recs GBS (group B Streptococcus carrier), +RV culture @ 22 wks 11/11/2013 04/16/2014 Hypertension in , antepartum 09/19/2013 01/08/2014 DVT prophylaxis 12/25/2012 09/04/2013 Overview: IPCs DISPOSITION AND FOLLOW-UP 12/25/20122013 Overview: Full code Retinal detachment 10/26/2012 12/25/2012 documented as of this encounter (statuses as of 12/27/2021) [facility]06[facility] History of Past illness Narrative* Problem Noted [...] 02/25/2014 morning - On fentanyl gtt per DIESEL INSTRUCTOR Plan: - DIESEL INSTRUCTOR team to round on patient and manage [...] --- Follows with Dr. Garcia at [facility] Plan: - Continuous monitoring - F/u DIESEL INSTRUCTOR recs GBS (group B Streptococcus carrier), +RV culture @ 22 wks 11/11/2013 04/16/2014 Hypertension in , antepartum 09/19/2013 01/08/2014 DVT prophylaxis 12/25/2012 09/04/2013 Overview: IPCs DISPOSITION AND FOLLOW-UP 12/25/20122013 Overview: Full code Retinal detachment 10/26/2012 12/25/2012 documented as of this encounter (statuses as of 12/29/2021) [facility] History of Past illness Narrative* Problem Noted [...] 02/25/2014 morning - On fentanyl gtt per DIESEL INSTRUCTOR Plan: - DIESEL INSTRUCTOR team to round on patient and manage [...] --- Follows with Dr. Garcia at [facility] Plan: - Continuous monitoring - F/u DIESEL INSTRUCTOR recs GBS (group B Streptococcus carrier), +RV culture @ 22 wks 11/11/2013 04/16/2014 Hypertension in , antepartum 09/19/2013 01/08/2014 DVT prophylaxis 12/25/2012 09/04/2013 Overview: IPCs DISPOSITION AND FOLLOW-UP 12/25/20122013 Overview: Full code Retinal detachment 10/26/2012 12/25/2012 documented as of this encounter (statuses as of 01/28/2022) [facility] History of Past illness Narrative* Problem Noted [...] 02/25/2014 morning - On fentanyl gtt per DIESEL INSTRUCTOR Plan: - DIESEL INSTRUCTOR team to round on patient and manage [...] --- Follows with Dr. Garcia at [facility] Plan: - Continuous monitoring - F/u DIESEL INSTRUCTOR recs GBS (group B Streptococcus carrier), +RV culture @ 22 wks 11/11/2013 04/16/2014 Hypertension in , antepartum 09/19/2013 01/08/2014 DVT prophylaxis 12/25/2012 09/04/2013 Overview: IPCs DISPOSITION AND FOLLOW-UP 12/25/20122013 Overview: Full code Retinal detachment 10/26/2012 12/25/2012 documented as of this encounter (statuses as of 01/30/2022) [facility] History of Past illness Narrative* Problem Noted [...] 02/25/2014 morning - On fentanyl gtt per DIESEL INSTRUCTOR Plan: - DIESEL INSTRUCTOR team to round on patient and manage [...] --- Follows with Dr. Garcia at [facility] Plan: - Continuous monitoring - F/u DIESEL INSTRUCTOR recs GBS (group B Streptococcus carrier), +RV culture @ 22 wks 11/11/2013 04/16/2014 Hypertension in , antepartum 09/19/2013 01/08/2014 DVT prophylaxis 12/25/2012 09/04/2013 Overview: IPCs DISPOSITION AND FOLLOW-UP 12/25/20122013 Overview: Full code Retinal detachment 10/26/2012 12/25/2012 documented as of this encounter (statuses as of 02/24/2022) [facility] History of Past illness Narrative* Problem Noted [...] 02/25/2014 morning - On fentanyl gtt per DIESEL INSTRUCTOR Plan: - DIESEL INSTRUCTOR team to round on patient and manage [...] --- Follows with Dr. Garcia at [facility] Plan: - Continuous monitoring - F/u DIESEL INSTRUCTOR recs GBS (group B Streptococcus carrier), +RV culture @ 22 wks 11/11/2013 04/16/2014 Hypertension in , antepartum 09/19/2013 01/08/2014 DVT prophylaxis 12/25/2012 09/04/2013 Overview: IPCs DISPOSITION AND FOLLOW-UP 12/25/20122013 Overview: Full code Retinal detachment 10/26/2012 12/25/2012 documented as of this encounter (statuses as of 03/01/2022) [facility] History of Past illness Narrative* Problem Noted [...] 02/25/2014 morning - On fentanyl gtt per DIESEL INSTRUCTOR Plan: - DIESEL INSTRUCTOR team to round on patient and manage [...] --- Follows with Dr. Garcia at [facility] Plan: - Continuous monitoring - F/u DIESEL INSTRUCTOR recs GBS (group B Streptococcus carrier), +RV culture @ 22 wks 11/11/2013 04/16/2014 Hypertension in , antepartum 09/19/2013 01/08/2014 DVT prophylaxis 12/25/2012 09/04/2013 Overview: IPCs DISPOSITION AND FOLLOW-UP 12/25/20122013 Overview: Full code Retinal detachment 10/26/2012 12/25/2012 documented as of this encounter (statuses as of 03/07/2022) [facility] History of Past illness Narrative* Problem Noted [...] 02/25/2014 morning - On fentanyl gtt per DIESEL INSTRUCTOR Plan: - DIESEL INSTRUCTOR team to round on patient and manage [...] --- Follows with Dr. Garcia at [facility] Plan: - Continuous monitoring - F/u DIESEL INSTRUCTOR recs GBS (group B Streptococcus carrier), +RV culture @ 22 wks 11/11/2013 04/16/2014 Hypertension in , antepartum 09/19/2013 01/08/2014 DVT prophylaxis 12/25/2012 09/04/2013 Overview: IPCs DISPOSITION AND FOLLOW-UP 12/25/20122013 Overview: Full code Retinal detachment 10/26/2012 12/25/2012 documented as of this encounter (statuses as of 03/10/2022) [facility] History of Past illness Narrative* Problem Noted [...] 02/25/2014 morning - On fentanyl gtt per DIESEL INSTRUCTOR Plan: - DIESEL INSTRUCTOR team to round on patient and manage [...] --- Follows with Dr. Garcia at [facility] Plan: - Continuous monitoring - F/u DIESEL INSTRUCTOR recs GBS (group B Streptococcus carrier), +RV culture @ 22 wks 11/11/2013 04/16/2014 Hypertension in , antepartum 09/19/2013 01/08/2014 DVT prophylaxis 12/25/2012 09/04/2013 Overview: IPCs DISPOSITION AND FOLLOW-UP 12/25/20122013 Overview: Full code Retinal detachment 10/26/2012 12/25/2012 documented as of this encounter (statuses as of 03/11/2022) [facility] History of Past illness Narrative* Problem Noted [...] 02/25/2014 morning - On fentanyl gtt per DIESEL INSTRUCTOR Plan: - DIESEL INSTRUCTOR team to round on patient and manage [...] --- Follows with Dr. Garcia at [facility] Plan: - Continuous monitoring - F/u DIESEL INSTRUCTOR recs GBS (group B Streptococcus carrier), +RV culture @ 22 wks 11/11/2013 04/16/2014 Hypertension in , antepartum 09/19/2013 01/08/2014 DVT prophylaxis 12/25/2012 09/04/2013 Overview: IPCs DISPOSITION AND FOLLOW-UP 12/25/20122013 Overview: Full code Retinal detachment 10/26/2012 12/25/2012 documented as of this encounter (statuses as of 04/18/2022) [facility] History of Past illness Narrative* Problem Noted [...] 02/25/2014 morning - On fentanyl gtt per DIESEL INSTRUCTOR Plan: - DIESEL INSTRUCTOR team to round on patient and manage [...] --- Follows with Dr. Garcia at 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 Garcia at 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 Garcia at [facility] Plan: - Continuous monitoring - F/u DIESEL INSTRUCTOR recs GBS (group B Streptococcus carrier), +RV culture @ 22 wks 11/11/2013 04/16/2014 Hypertension in , antepartum 09/19/2013 01/08/2014 DVT prophylaxis 12/25/2012 09/04/2013 Overview: IPCs DISPOSITION AND FOLLOW-UP 12/25/20122013 Overview: Full code Retinal detachment 10/26/2012 12/25/2012 documented as of this encounter (statuses as of 05/04/2022) [facility] History of Past illness Narrative* Problem Noted [...] 02/25/2014 morning - On fentanyl gtt per DIESEL INSTRUCTOR Plan: - DIESEL INSTRUCTOR team to round on patient and manage [...] --- Follows with Dr. Garcia at 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 Garcia at [facility] Plan: - Continuous monitoring - F/u DIESEL INSTRUCTOR recs GBS (group B Streptococcus carrier), +RV culture @ 22 wks 11/11/2013 04/16/2014 Hypertension in , antepartum 09/19/2013 01/08/2014 DVT prophylaxis 12/25/2012 09/04/2013 Overview: IPCs DISPOSITION AND FOLLOW-UP 12/25/20122013 Overview: Full code Retinal detachment 10/26/2012 12/25/2012 documented as of this encounter (statuses as of 05/11/2022) [facility] of [facility] illness Narrative* Problem Noted [...] 02/25/2014 morning - On fentanyl gtt per [employer] Plan: - [employer] team to round on patient and manage [...] --- Follows with Dr. Garcia at [facility] Plan: - Continuous monitoring - F/u [employer] recs GBS (group B Streptococcus carrier), +RV culture @ 22 wks 11/11/2013 04/16/2014 Hypertension in , antepartum 09/19/2013 01/08/2014 DVT prophylaxis 12/25/2012 09/04/2013 Overview: IPCs DISPOSITION AND FOLLOW-UP 12/25/20122013 Overview: Full code Retinal detachment 10/26/2012 12/25/2012 documented as of this encounter (statuses as of 05/12/2022) [facility]-02[facility]2016 History of Past illness Narrative* Problem Noted [...] 02/25/2014 morning - On fentanyl gtt per [employer] Plan: - [employer] team to round on patient and manage [...] --- Follows with Dr. Garcia at [facility] Plan: - Continuous monitoring - F/u [employer] IN[employer] recs GBS (group B Streptococcus carrier), +RV culture @ 22 wks 11/11/2013 04/16/2014 Hypertension in , antepartum 09/19/2013 01/08/2014 DVT prophylaxis 12/25/2012 09/04/2013 Overview: IPCs DISPOSITION AND FOLLOW-UP 12/25/20122013 Overview: Full code Retinal detachment 10/26/2012 12/25/2012 documented as of this encounter (statuses as of 05/13/2022) [facility]2016 History of Past illness Narrative* Problem Noted [...] 02/25/2014 morning - On fentanyl gtt per [employer] Plan: - [employer] team to round on patient and manage [...] --- Follows with Dr. Garcia at [facility] Plan: - Continuous monitoring - F/u [employer] INSTRUCTOR recs GBS (group B Streptococcus carrier), +RV culture @ 22 wks 11/11/2013 04/16/2014 Hypertension in , antepartum 09/19/2013 01/08/2014 DVT prophylaxis 12/25/2012 09/04/2013 Overview: IPCs DISPOSITION AND FOLLOW-UP 12/25/20122013 Overview: Full code Retinal detachment 10/26/2012 12/25/2012 documented as of this encounter (statuses as of 05/30/2022) [facility]2016 History of Past illness Narrative* Problem Noted [...] 02/25/2014 morning - On fentanyl gtt per [employer] Plan: - [employer] team to round on patient and manage [...] --- Follows with Dr. Garcia at [facility] Plan: - Continuous monitoring - F/u [employer] IN[employer]CTOR recs GBS (group B Streptococcus carrier), +RV culture @ 22 wks 11/11/2013 04/16/2014 Hypertension in , antepartum 09/19/2013 01/08/2014 DVT prophylaxis 12/25/2012 09/04/2013 Overview: IPCs DISPOSITION AND FOLLOW-UP 12/25/20122013 Overview: Full code Retinal detachment 10/26/2012 12/25/2012 documented as of this encounter (statuses as of 06/07/2022) [facility]2016 History of Past illness Narrative* Problem Noted [...] 02/25/2014 morning - On fentanyl gtt per [employer] Plan: - [employer] team to round on patient and manage [...] --- Follows with Dr. Garcia at [facility] Plan: - Continuous monitoring - F/u [employer]EL INSTRUCTOR recs GBS (group B Streptococcus carrier), +RV culture @ 22 wks 11/11/2013 04/16/2014 Hypertension in , antepartum 09/19/2013 01/08/2014 DVT prophylaxis 12/25/2012 09/04/2013 Overview: IPCs DISPOSITION AND FOLLOW-UP 12/25/20122013 Overview: Full code Retinal detachment 10/26/2012 12/25/2012 documented as of this encounter (statuses as of 06/08/2022) [facility] History of Past illness Narrative* Problem Noted [...] 02/25/2014 morning - On fentanyl gtt per [employer] Plan: - [employer] IN[employer] team to round on patient and manage [...] --- Follows with Dr. Garcia at [facility] Plan: - Continuous monitoring - F/u [employer] INSTRUCTOR recs GBS (group B Streptococcus carrier), +RV culture @ 22 wks 11/11/2013 04/16/2014 Hypertension in , antepartum 09/19/2013 01/08/2014 DVT prophylaxis 12/25/2012 09/04/2013 Overview: IPCs DISPOSITION AND FOLLOW-UP 12/25/20122013 Overview: Full code Retinal detachment 10/26/2012 12/25/2012 documented as of this encounter (statuses as of 06/16/2022) [facility] History of Past illness Narrative* Problem Noted [...] 02/25/2014 morning - On fentanyl gtt per [employer] Plan: - [employer] team to round on patient and manage [...] --- Follows with Dr. Garcia at [facility] Plan: - Continuous monitoring - F/u [employer]EL IN[employer]CTOR recs GBS (group B Streptococcus carrier), +RV culture @ 22 wks 11/11/2013 04/16/2014 Hypertension in , antepartum 09/19/2013 01/08/2014 DVT prophylaxis 12/25/2012 09/04/2013 Overview: IPCs DISPOSITION AND FOLLOW-UP 12/25/20122013 Overview: Full code Retinal detachment 10/26/2012 12/25/2012 documented as of this encounter (statuses as of 07/12/2022) [facility]2016 History of Past illness Narrative* Problem Noted [...] 02/25/2014 morning - On fentanyl gtt per [employer] Plan: - [employer] IN[employer] team to round on patient and manage [...] --- Follows with Dr. Garcia at [facility] Plan: - Continuous monitoring - F/u D[employer] INSTRUCTOR recs GBS (group B Streptococcus carrier), +RV culture @ 22 wks 11/11/2013 04/16/2014 Hypertension in , antepartum 09/19/2013 01/08/2014 DVT prophylaxis 12/25/2012 09/04/2013 Overview: IPCs DISPOSITION AND FOLLOW-UP 12/25/20122013 Overview: Full code Retinal detachment 10/26/2012 12/25/2012 documented as of this encounter (statuses as of 07/25/2022) [facility] History of Past illness Narrative* Problem Noted [...] 02/25/2014 morning - On fentanyl gtt per [employer] Plan: - [employer] IN[employer] team to round on patient and manage [...] --- Follows with Dr. Garcia at [facility] Plan: - Continuous monitoring - F/u [employer] INSTRUCTOR recs GBS (group B Streptococcus carrier), +RV culture @ 22 wks 11/11/2013 04/16/2014 Hypertension in , antepartum 09/19/2013 01/08/2014 DVT prophylaxis 12/25/2012 09/04/2013 Overview: IPCs DISPOSITION AND FOLLOW-UP 12/25/20122013 Overview: Full code Retinal detachment 10/26/2012 12/25/2012 documented as of this encounter (statuses as of 08/05/2022) [facility] History of Past illness Narrative* Problem Noted [...] 02/25/2014 morning - On fentanyl gtt per [employer] Plan: - [employer] IN[employer] team to round on patient and manage [...] --- Follows with Dr. Garcia at [facility] Plan: - Continuous monitoring - F/u [employer] INSTRUCTOR recs GBS (group B Streptococcus carrier), +RV culture @ 22 wks 11/11/2013 04/16/2014 Hypertension in , antepartum 09/19/2013 01/08/2014 DVT prophylaxis 12/25/2012 09/04/2013 Overview: IPCs DISPOSITION AND FOLLOW-UP 12/25/20122013 Overview: Full code Retinal detachment 10/26/2012 12/25/2012 documented as of this encounter (statuses as of 08/16/2022) [facility] History of Past illness Narrative* Problem Noted [...] 02/25/2014 morning - On fentanyl gtt per [employer] IN[employer] Plan: - [employer] IN[employer] team to round on patient and manage [...] --- Follows with Dr. Garcia at 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 Garcia at 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 Garcia at [facility] Plan: - Continuous monitoring - F/u D[employer] IN[employer]CTOR recs GBS (group B Streptococcus carrier), +RV culture @ 22 wks 11/11/2013 04/16/2014 Hypertension in , antepartum 09/19/2013 01/08/2014 DVT prophylaxis 12/25/2012 09/04/2013 Overview: IPCs DISPOSITION AND FOLLOW-UP 12/25/20122013 Overview: Full code Retinal detachment 10/26/2012 12/25/2012 documented as of this encounter (statuses as of 09/20/2022) [facility] History of Past illness Narrative* Problem Noted [...] 02/25/2014 morning - On fentanyl gtt per [employer] IN[employer] Plan: - [employer] team to round on patient and manage [...] --- Follows with Dr. Garcia at [facility] Plan: - Continuous monitoring - F/u D[employer]EL INSTRUCTOR recs GBS (group B Streptococcus carrier), +RV culture @ 22 wks 11/11/2013 04/16/2014 Hypertension in , antepartum 09/19/2013 01/08/2014 DVT prophylaxis 12/25/2012 09/04/2013 Overview: IPCs DISPOSITION AND FOLLOW-UP 12/25/20122013 Overview: Full code Retinal detachment 10/26/2012 12/25/2012 documented as of this encounter (statuses as of 10/22/2022) [facility] History of Past illness Narrative* Problem Noted [...] 02/25/2014 morning - On fentanyl gtt per [employer] IN[employer] Plan: - [employer] IN[employer]CTOR team to round on patient and manage [...] --- Follows with Dr. Garcia at [facility] Plan: - Continuous monitoring - F/u D[employer] INSTRUCTOR recs GBS (group B Streptococcus carrier), +RV culture @ 22 wks 11/11/2013 04/16/2014 Hypertension in , antepartum 09/19/2013 01/08/2014 DVT prophylaxis 12/25/2012 09/04/2013 Overview: IPCs DISPOSITION AND FOLLOW-UP 12/25/20122013 Overview: Full code Retinal detachment 10/26/2012 12/25/2012 documented as of this encounter (statuses as of 11/03/2022) [facility]2016 History of Past illness Narrative* Problem Noted [...] 02/25/2014 morning - On fentanyl gtt per [employer] INSTRUCTOR Plan: - [employer] team to round on patient and manage [...] --- Follows with Dr. Garcia at [facility] Plan: - Continuous monitoring - F/u D[employer]EL INSTRUCTOR recs GBS (group B Streptococcus carrier), +RV culture @ 22 wks 11/11/2013 04/16/2014 Hypertension in , antepartum 09/19/2013 01/08/2014 DVT prophylaxis 12/25/2012 09/04/2013 Overview: IPCs DISPOSITION AND FOLLOW-UP 12/25/20122013 Overview: Full code Retinal detachment 10/26/2012 12/25/2012 documented as of this encounter (statuses as of 11/07/2022) [facility]2016 History of Past illness Narrative* Problem Noted [...] 02/25/2014 morning - On fentanyl gtt per [employer] Plan: - [employer]CTOR team to round on patient and manage care Diabetic ketoacidosis withou t coma associated with type 1 diabetes mellitus 01/08/2014 02/04/2023 Overview: Type 1 diabetes with poor control, frequent DKA episodes --- Throughout the day she takes insulin to keep sugars 80-150 - Presented to [facility] on 01/08/2014 with sub-sternal chest pain in [...] --- Follows with Dr. Garcia at [facility] Plan: - Continuous monitoring - F/u [employer] IN[employer]CTOR recs GBS (group B Streptococcus carrier), +RV culture @ 22 wks 11/11/2013 04/16/2014 Hypertension in , antepartum 09/19/2013 01/08/2014 DVT prophylaxis 12/25/2012 09/04/2013 Overview: IPCs DISPOSITION AND FOLLOW-UP 12/25/20122013 Overview: Full code Retinal detachment 10/26/2012 12/25/2012 documented as of this encounter (statuses as of 02/08/2023) [facility]2016 History of Past illness Narrative* Problem Noted [...] 02/25/2014 morning - On fentanyl gtt per [employer] IN[employer] Plan: - [employer]CTOR team to round on patient and manage care Diabetic ketoacidosis withou t coma associated with type 1 diabetes mellitus 01/08/2014 02/04/2023 Overview: Type 1 diabetes with poor control, frequent DKA episodes --- Throughout the day she takes insulin to keep sugars 80-150 - Presented to [facility] on 01/08/2014 with sub-sternal chest pain in [...] --- Follows with Dr. Garcia at [facility] Plan: - Continuous monitoring - F/u D[employer] IN[employer]CTOR recs GBS (group B Streptococcus carrier), +RV culture @ 22 wks 11/11/2013 04/16/2014 Hypertension in , antepartum 09/19/2013 01/08/2014 DVT prophylaxis 12/25/2012 09/04/2013 Overview: IPCs DISPOSITION AND FOLLOW-UP 12/25/20122013 Overview: Full code Retinal detachment 10/26/2012 12/25/2012 documented as of this encounter (statuses as of 02/15/2023) [facility]2016 History of Past illness Narrative* Problem Noted [...] 02/25/2014 morning - On fentanyl gtt per [employer] IN[employer]CTOR Plan: - [employer] IN[employer]CTOR team to round on patient and manage care Diabetic ketoacidosis withou t coma associated with type 1 diabetes mellitus 01/08/2014 02/04/2023 Overview: Type 1 diabetes with poor control, frequent DKA episodes --- Throughout the day she takes insulin to keep sugars 80-150 - Presented to [facility] on 01/08/2014 with sub-sternal chest pain in [...] --- Follows with Dr. Garcia at [facility] Plan: - Continuous monitoring - F/u D[employer]EL INSTRUCTOR recs GBS (group B Streptococcus c arrier), +RV culture @ 22 wks 11/11/2013 04/16/2014 Hypertension in , antepartum 09/19/2013 01/08/2014 DVT prophylaxis 12/25/2012 09/04/2013 Overview: IPCs DISPOSITION AND FOLLOW-UP 12/25/2012 Overview: Full code Retinal detachment 10/26/2012 3 documented as of this encounter (statuses as of 06/02/2023) [facility]2016 History of Past illness Narrative* Problem Noted [...] 02/25/2014 morning - On fentanyl gtt per [employer] IN[employer]CTOR Plan: - [employer]CTOR team to round on patient and manage care Diabetic ketoacidosis withou t coma associated with type 1 diabetes mellitus 01/08/2014 02/04/2023 Overview: Type 1 diabetes with poor control, frequent DKA episodes --- Throughout the day she takes insulin to keep sugars 80-150 - Presented to [facility] on 01/08/2014 with sub-sternal chest pain in [...] --- Follows with Dr. Garcia at [facility] Plan: - Continuous monitoring - F/u D[employer]EL INSTRUCTOR recs GBS (group B Streptococcus c arrier), +RV culture @ 22 wks 11/11/2013 04/16/2014 Hypertension in , antepartum 09/19/2013 01/08/2014 DVT prophylaxis 12/25/2012 09/04/2013 Overview: IPCs DISPOSITION AND FOLLOW-UP 12/25/2012 Overview: Full code Retinal detachment 10/26/2012 3 documented as of this encounter (statuses as of 08/16/2023) [facility]2016 History of Past illness Narrative* Problem Noted [...] 02/25/2014 morning - On fentanyl gtt per [employer] IN[employer]CTOR Plan: - [employer] IN[employer]CTOR team to round on patient and manage care Diabetic ketoacidosis withou t coma associated with type 1 diabetes mellitus 01/08/2014 02/04/2023 Overview: Type 1 diabetes with poor control, frequent DKA episodes --- Throughout the day she takes insulin to keep sugars 80-150 - Presented to [facility] on 01/08/2014 with sub-sternal chest pain in [...] --- Follows with Dr. Garcia at [facility] Plan: - Continuous monitoring - F/u D[employer]EL INSTRUCTOR recs GBS (group B Streptococcus c arrier), +RV culture @ 22 wks 11/11/2013 04/16/2014 Hypertension in , antepartum 09/19/2013 01/08/2014 DVT prophylaxis 12/25/2012 09/04/2013 Overview: IPCs DISPOSITION AND FOLLOW-UP 12/25/2012 Overview: Full code Retinal detachment 10/26/2012 3 documented as of this encounter (statuses as of 09/29/2023) [facility]2016 History of Past illness Narrative* Problem Noted [...] 02/25/2014 morning - On fentanyl gtt per [employer] IN[employer]CTOR Plan: - [employer] IN[employer]CTOR team to round on patient and manage care Diabetic ketoacidosis withou t coma associated with type 1 diabetes mellitus 01/08/2014 02/04/2023 Overview: Type 1 diabetes with poor control, frequent DKA episodes --- Throughout the day she takes insulin to keep sugars 80-150 - Presented to [facility] on 01/08/2014 with sub-sternal chest pain in [...] --- Follows with Dr. Garcia at [facility] Plan: - Continuous monitoring - F/u DIESEL INSTRUCTOR recs GBS (group B Streptococcus c gregorio), +RV culture @ 22 wks 11/11/2013 04/16/2014 Hypertension in , antepartum 09/19/2013 01/08/2014 DVT prophylaxis 12/25/2012 09/04/2013 Overview: IPCs DISPOSITION AND FOLLOW-UP 12/25/2012 Overview: Full code Retinal detachment 10/26/2012 3 documented as of this encounter (statuses as of 09/29/2023) [facility] History of Past illness Narrative* Problem Noted [...] 02/25/2014 morning - On fentanyl gtt per [employer] IN[employer]CTOR Plan: - [employer] IN[employer]CTOR team to round on patient and manage care Diabetic ketoacidosis withou t coma associated with type 1 diabetes mellitus 01/08/2014 02/04/2023 Overview: Type 1 diabetes with poor control, frequent DKA episodes --- Throughout the day she takes insulin to keep sugars 80-150 - Presented to [facility] on 01/08/2014 with sub-sternal chest pain in [...] --- Follows with Dr. Garcia at [facility] Plan: - Continuous monitoring - F/u DIESEL INSTRUCTOR recs GBS (group B Streptococcus c arrier), +RV culture @ 22 wks 11/11/2013 04/16/2014 Hypertension in , antepartum 09/19/2013 01/08/2014 DVT prophylaxis 12/25/2012 09/04/2013 Overview: IPCs DISPOSITION AND FOLLOW-UP 12/25/2012 Overview: Full code Retinal detachment 10/26/2012 3 documented as of this encounter (statuses as of 10/04/2023) [facility] History of Past illness Narrative* Problem Noted [...] 02/25/2014 morning - On fentanyl gtt per D[employer] INSTRUCTOR Plan: - [employer]EL IN[employer]CTOR team to round on patient and manage care Diabetic ketoacidosis withou t coma associated with type 1 diabetes mellitus 01/08/2014 02/04/2023 Overview: Type 1 diabetes with poor control, frequent DKA episodes --- Throughout the day she takes insulin to keep sugars 80-150 - Presented to [facility] on 01/08/2014 with sub-sternal chest pain in [...] --- Follows with Dr. Garcia at [facility] Plan: - Continuous monitoring - F/u DIESEL INSTRUCTOR recs GBS (group B Streptococcus c arrier), +RV culture @ 22 wks 11/11/2013 04/16/2014 Hypertension in , antepartum 09/19/2013 01/08/2014 DVT prophylaxis 12/25/2012 09/04/2013 Overview: IPCs DISPOSITION AND FOLLOW-UP 12/25/2012 Overview: Full code Retinal detachment 10/26/2012 3 documented as of this encounter (statuses as of 10/12/2023) [facility] History of Past illness Narrative* Problem Noted [...] 02/25/2014 morning - On fentanyl gtt per [employer] INSTRUCTOR Plan: - [employer] IN[employer]CTOR team to round on patient and manage care Diabetic ketoacidosis withou t coma associated with type 1 diabetes mellitus 01/08/2014 02/04/2023 Overview: Type 1 diabetes with poor control, frequent DKA episodes --- Throughout the day she takes insulin to keep sugars 80-150 - Presented to [facility] on 01/08/2014 with sub-sternal chest pain in [...] --- Follows with Dr. Garcia at [facility] Plan: - Continuous monitoring - F/u DIESEL INSTRUCTOR recs GBS (group B Streptococcus c arrier), +RV culture @ 22 wks 11/11/2013 04/16/2014 Hypertension in , antepartum 09/19/2013 01/08/2014 DVT prophylaxis 12/25/2012 09/04/2013 Overview: IPCs DISPOSITION AND FOLLOW-UP 12/25/2012 Overview: Full code Retinal detachment 10/26/2012 3 documented as of this encounter (statuses as of 10/19/2023) [facility] History of Past illness Narrative* Problem Noted [...] 02/25/2014 morning - On fentanyl gtt per [employer]EL INSTRUCTOR Plan: - [employer] IN[employer]CTOR team to round on patient and manage care Diabetic ketoacidosis withou t coma associated with type 1 diabetes mellitus 01/08/2014 02/04/2023 Overview: Type 1 diabetes with poor control, frequent DKA episodes --- Throughout the day she takes insulin to keep sugars 80-150 - Presented to [facility] on 01/08/2014 with sub-sternal chest pain in [...] --- Follows with Dr. Garcia at [facility] Plan: - Continuous monitoring - F/u DIESEL INSTRUCTOR recs GBS (group B Streptococcus c arrier), +RV culture @ 22 wks 11/11/2013 04/16/2014 Hypertension in , antepartum 09/19/2013 01/08/2014 DVT prophylaxis 12/25/2012 09/04/2013 Overview: IPCs DISPOSITION AND FOLLOW-UP 12/25/2012 Overview: Full code Retinal detachment 10/26/2012 3 documented as of this encounter (statuses as of 10/20/2023) [facility] History of Past illness Narrative* Problem Noted [...] 02/25/2014 morning - On fentanyl gtt per D[employer]EL INSTRUCTOR Plan: - D[employer]EL INSTRUCTOR team to round on patient and manage care Diabetic ketoacidosis withou t coma associated with type 1 diabetes mellitus 01/08/2014 02/04/2023 Overview: Type 1 diabetes with poor control, frequent DKA episodes --- Throughout the day she takes insulin to keep sugars 80-150 - Presented to [facility] on 01/08/2014 with sub-sternal chest pain in [...] --- Follows with Dr. Garcia at [facility] Plan: - Continuous monitoring - F/u DIESEL INSTRUCTOR recs GBS (group B Streptococcus c arrier), +RV culture @ 22 wks 11/11/2013 04/16/2014 Hypertension in , antepartum 09/19/2013 01/08/2014 DVT prophylaxis 12/25/2012 09/04/2013 Overview: IPCs DISPOSITION AND FOLLOW-UP 12/25/2012 Overview: Full code Retinal detachment 10/26/2012 3 documented as of this encounter (statuses as of 10/27/2023) [facility] History of Past illness Narrative* Problem Noted [...] 02/25/2014 morning - On fentanyl gtt per D[employer]EL INSTRUCTOR Plan: - [employer]EL INSTRUCTOR team to round on patient and manage care Diabetic ketoacidosis withou t coma associated with type 1 diabetes mellitus 01/08/2014 02/04/2023 Overview: Type 1 diabetes with poor control, frequent DKA episodes --- Throughout the day she takes insulin to keep sugars 80-150 - Presented to [facility] on 01/08/2014 with sub-sternal chest pain in [...] --- Follows with Dr. Garcia at [facility] Plan: - Continuous monitoring - F/u DIESEL INSTRUCTOR recs GBS (group B Streptococcus c arrier), +RV culture @ 22 wks 11/11/2013 04/16/2014 Hypertension in , antepartum 09/19/2013 01/08/2014 DVT prophylaxis 12/25/2012 09/04/2013 Overview: IPCs DISPOSITION AND FOLLOW-UP 12/25/2012 Overview: Full code Retinal detachment 10/26/2012 3 documented as of this encounter (statuses as of 11/03/2023) [facility] History of Past illness Narrative* Problem Noted [...] 02/25/2014 morning - On fentanyl gtt per [employer] INSTRUCTOR Plan: - D[employer]EL INSTRUCTOR team to round on patient and manage care Diabetic ketoacidosis withou t coma associated with type 1 diabetes mellitus 01/08/2014 02/04/2023 Overview: Type 1 diabetes with poor control, frequent DKA episodes --- Throughout the day she takes insulin to keep sugars 80-150 - Presented to [facility] on 01/08/2014 with sub-sternal chest pain in [...] --- Follows with Dr. Garcia at [facility] Plan: - Continuous monitoring - F/u DIESEL INSTRUCTOR recs GBS (group B Streptococcus c arrier), +RV culture @ 22 wks 11/11/2013 04/16/2014 Hypertension in , antepartum 09/19/2013 01/08/2014 DVT prophylaxis 12/25/2012 09/04/2013 Overview: IPCs DISPOSITION AND FOLLOW-UP 12/25/2012 Overview: Full code Retinal detachment 10/26/2012 3 documented as of this encounter (statuses as of 11/10/2023) [facility] History of Past illness Narrative* Problem Noted [...] 02/25/2014 morning - On fentanyl gtt per D[employer]EL INSTRUCTOR Plan: - DIESEL INSTRUCTOR team to round on patient and manage care Diabetic ketoacidosis withou t coma associated with type 1 diabetes mellitus 01/08/2014 02/04/2023 Overview: Type 1 diabetes with poor control, frequent DKA episodes --- Throughout the day she takes insulin to keep sugars 80-150 - Presented to [facility] on 01/08/2014 with sub-sternal chest pain in [...] --- Follows with Dr. Garcia at [facility] Plan: - Continuous monitoring - F/u DIESEL INSTRUCTOR recs GBS (group B Streptococcus c arrier), +RV culture @ 22 wks 11/11/2013 04/16/2014 Hypertension in , antepartum 09/19/2013 01/08/2014 DVT prophylaxis 12/25/2012 09/04/2013 Overview: IPCs DISPOSITION AND FOLLOW-UP 12/25/2012 Overview: Full code Retinal detachment 10/26/2012 3 documented as of this encounter (statuses as of 12/14/2023) [facility]06-02-2016 History of Past illness Narrative* Problem Noted [...] 02/25/2014 morning - On fentanyl gtt per DIESEL INSTRUCTOR Plan: - DIESEL INSTRUCTOR team to round on patient and manage care Diabetic ketoacidosis withou t coma associated with type 1 diabetes mellitus 01/08/2014 02/04/2023 Overview: Type 1 diabetes with poor control, frequent DKA episodes --- Throughout the day she takes insulin to keep sugars 80-150 - Presented to [facility] on 01/08/2014 with sub-sternal chest pain in [...] --- Follows with Dr. Garcia at [facility] Plan: - Continuous monitoring - F/u DIESEL INSTRUCTOR recs GBS (group B Streptococcus c arrier), +RV culture @ 22 wks 11/11/2013 04/16/2014 Hypertension in , antepartum 09/19/2013 01/08/2014 DVT prophylaxis 12/25/2012 09/04/2013 Overview: IPCs DISPOSITION AND FOLLOW-UP 12/25/2012 Overview: Full code Retinal detachment 10/26/2012 3 documented as of this encounter (statuses as of 12/15/2023) [facility] note Author Cynthia Hutchison [facility] October 18, 2023 11:21am Note Date/Time October 18, 2023 11:21am [facility] Medical Records Department [address] [place] [address] Counseling Note - Pharmacy 10/18/23 1121 MR#: [id number] Acct: [id number] Name: KATHLEEN VILLA Rep #:[id number] : 1995 28 From: Cynthia Hutchison PCP: FUNMILAYO SMITH Status:ADM IN Y Location: ICU CVICU 2-1 Pharmacy [place] Med Reconciliation Pharmacy Service has performed discharge medication reconciliation for this patient. The patient's discharge medication list was reviewed for discrepancies and discrepancies were resolved. Medications at Discharge Home Medications insulin lispro 100 unit/mL subcutaneous solution (Humalog U-100 Insulin) See Rx Instructions .Route .COMPLEX 04/27/23 pen needle, diabetic 29 gauge x 1/2 (Ultra-Thin II Insulin Pen [place]) #100 ea08/10/23 prochlorperazine maleate 10 mg tablet (Compazine) 10 mg PO TID PRN nausea and vomiting #20 tabs 09/25/23 10/18/23 1121 <Electronically signed by Cynthia Hutchison> Date _ Cynthia Hutchison Cosigner Signature (if applicable): Date CC: ~ Signed [facility] Work Phone: Discharge summary Author Ileana Lobo [facility] April 29, 2023 5:54pm Note Date/Time April 29, 2023 5:45pm [facility] Medical Records Department [address] [place] [address] Instructions for Home/Discharge Instructions 04/29/23 1744 MR#: [id number] Acct: [id number] Name: KATHLEEN VILLA Rep #:[id number] : [...] MD; No Primary Care Physician ~ Signed [facility] Work Phone: Discharge summary Author Alexandro Garces [facility] October 17, 2023 11:38am Note Date/Time October 17, 2023 11:24am [facility] Medical Records Department [address] [place] [address] Emergency Department Summary 10/17/23 MR#: [id number] Acct: [id number] Name: KATHLEEN VILLA Rep #:[id number] : [...] Prior similar symptoms: Yes Recent Illness/Hospitalization: No [facility] <Jacqueline Alvarez RN - Last Filed: 10/17/23 11:31> [facility] Medical History Anxiety Borderline personality [...] gauge x 1/2 (Ultra-Thin II Insulin Pen [place]) #100 ea08/10/23 [Rx Last Taken Unknown] ibuprofen [...] Alvarez RN - Last Filed: 10/17/23 11:31> [facility] MDM Narrative Medical decision making narrative: Patient placed on ekg monitor. IV line initiated. Labwork obtained to evaluate [...] 88.4 H Lymph % (Auto) 7.8 L [place] % (Auto) 2.4 Eos % (Auto) 0.1 [...] Garces MD - Last Filed: 10/17/23 11:38> [facility] Narrative Medical decision making narrative: Patient placed on ekg monitor. IV line initiated. Labwork obtained to evaluate [...] 88.4 H Lymph % (Auto) 7.8 L [place] % (Auto) 2.4 Eos % (Auto) 0.1 [...] minutes, Including time spent:, Discussing w/Patient &/or Family/Hand Funnel Coater, Discussing w/Consultants, Arranging Admission or Transfer, Performing Direct Patient Care at Bedside and - (35 minutes) Discharge Plan Dx/Rx/DC Orders Clinical Impression: DKA (diabetic ketoacidosis), Tachycardia, Nausea & vomiting, Acute dehydration Disposition Disposition: Acute Care Hospital [facility] What to do if you have Problems For any increased pain, shortness of breath, bleeding, nausea or vomiting, chest pain, or any unexpected problems, contact your Primary Care Provider. Call [facility] ([phone]) or report to the closest Emergency Room. Call 911 if necessary. 10/17/23 1138 <Electronically signed by Alexandro Garces MD> Cosigner Signature (if applicable): 10/17/23 1131 <Electronically signed by Jacqueline Alvarez RN> CC: FUNMILAYO SMITH ~ Signed [facility] Work Phone: Discharge summary [facility] October 18, 2023 10:54am Note Date/Time October 18, 2023 10:54am [facility] Medical Records Department [address] [place] [address] Instructions for Home/Discharge Instructions 10/18/23 1054 MR#: [id number] Acct: [id number] Name: KATHLEEN VILLA Rep #:[id number] : [...] Instructions / Restrictions: follow up with your feller seam operator and sign language interpreter SIRI. Discharge Orders/Prescriptions Prescriptions: Continued insulin lispro [...] pen needle, diabetic [Ultra-Thin II Ins Pen [place]] 29 gauge x 1/2 needle See Rx [...] Jefferson MD CC: FUNMILAYO SMITH ~ Signed [facility] Work Phone: Discharge summary Author [facility] October 18, 2023 11:09am Note Date/Time October 18, 2023 10:58am [facility] Medical Records Department [address] [place] [address] Discharge Summary 10/18/23 1054 MR#: [id number] Acct: [id number] Name: KATHLEEN VILLA Rep #:[id number] : [...] was 6.7. * follows up with an feller seam operator in [facility] in [place]. * last A1C from 08/07/2023 was 7 [...] gauge x 1/2 (Ultra-Thin II Insulin Pen [place]) #100 ea08/10/23 prochlorperazine maleate 10 mg tablet [...] per patient, her last A1C with her feller seam operator was 6.7. She had however had recurrent [...] to follow up with her PCP and feller seam operator as well as sign language interpreter o/a of gastroparesis. Patient seen and examined [...] % (Auto) 59.5, Lymph % (Auto) 32.5, [place] % (Auto) 6.0, Eos % (Auto) 1.0, [...] Instructions / Restrictions: follow up with your feller seam operator and sign language interpreter SIRI. Discharge Orders/Prescriptions Prescriptions: Continued insulin lispro [...] pen needle, diabetic [Ultra-Thin II Ins Pen [place]] 29 gauge x 1/2 needle See Rx [...] Self Care Charges/Coding Visit Charges Inpatient E&M: 42527 Disch Hosp >30min 10/18/23 1109 <Electronically signed by Vita Jefferson MD> Cosigner Signature (if applicable): CC: Dr. Vita Jefferson MD; FUNMILAYO SMITH~ Signed [facility] Work Phone: Evaluation note* Diagnosis Type 1 diabetes mellitus with other specified complication (HCC)- Primary [facility] Diagnosis Obstruction of central line, initial encounter (HCC)- Primary documented in this encounter [facility] note* Diagnosis Type 1 diabetes mellitus with other specified complication ([facility])- Primary [facility]* Diagnosis Menstrual irregularity- Primary Irregular menstrual cycle Screening for STD (sexually transmitted disease) Screening examination for venereal disease Chronic nausea Nausea alone documented in this [facility]* Diagnosis 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 ([facility]) documented in this encounter [facility] note* Diagnosis Chronic idiopathic constipation Unspecified constipation [facility]* Diagnosis Gonorrhea- Primary Gonococcal infection (acute) of lower genitourinary tract documented in this [facility]* Diagnosis Gonorrhea- Primary Gonococcal infection (acute) of lower genitourinary tract documented in this encounter [facility]* Diagnosis Gonorrhea- Primary Gonococcal infection (acute) of lower genitourinary tract Screen for sexually transmitted diseases Screening examination for venereal disease documented in this encounter [facility]* Diagnosis Type 1 diabetes mellitus with hyperglycemia (HCC)- Primary Type I (juvenile type) diabetes mellitus without mention of complication, not stated as uncontrolled Insulin pump status Abnormal results of thyroid function studies Nonspecific abnormal results of thyroid function study documented in this encounter [facility] note* Diagnosis Type 1 diabetes mellitus with hyperglycemia, with long-term current use of insulin (HCC)- Primary Insulin pump status documented in this encounter [facility] note* Diagnosis Type 1 diabetes mellitus with other specified complication ([facility])- Primary documented in this encounter [facility] note* Diagnosis Lower abdominal pain- Primary Abdominal pain, other specified site [facility]* Diagnosis Viral conjunctivitis- Primary Unspecified diseases of conjunctiva due to viruses [facility]* Diagnosis Gastroparesis due to DM (HCC)- [...] Abdominal pain, generalized documented in this encounter [facility] note* Diagnosis Gastroparesis due to DM ([facility])- Primary Type II or unspecified type diabetes mellitus with neurological manifestations, not stated as uncontrolled Generalized abdominal pain Abdominal pain, generalized documented in this encounter [facility] note* Diagnosis Left flank pain- Primary Abdominal pain, unspecified site documented in this encounter [facility] note* Diagnosis Left flank pain- Primary Abdominal pain, unspecified site Dysuria documented in this encounter [facility] note* Diagnosis Type 1 diabetes mellitus with hyperglycemia, with long-term current use of insulin ([facility])- Primary Insulin pump status Screening for diabetic retinopathy Screening for other eye conditions documented in this encounter [facility] note* Diagnosis Nausea & vomiting- Primary Nausea with vomiting Hyperglycemia Other abnormal glucose Ketonuria Acetonuria Nausea and vomiting, unspecified vomiting type Abdominal pain, unspecified abdominal location Chest pain, unspecified type Bradycardia Other specified cardiac dysrhythmias documented in this encounter [facility] assessment [facility] Work Phone: evaluation note* Diagnosis Onset Date Resolution Status Intractable vomiting acute [facility] Work Phone: evaluation note* Diagnosis Psoriasis vulgaris- Primary Other psoriasis [facility] Diagnosis Type 1 diabetes mellitus with hyperglycemia, with long-term current use of insulin ([facility])- Primary Insulin pump status documented in this encounter [facility] note* Diagnosis Onset Date Resolution Status Diabetic gastroparesis acute DKA (diabetic ketoacidoses) acute Enterocolitis acute Intractable nausea and vomiting acute Nausea & vomiting acute Type 1 diabetes acute [facility] Work Phone: Evaluation note* Diagnosis Onset Date Resolution Status DKA (diabetic ketoacidoses) resolved Intractable nausea and vomiting resolved Nausea & vomiting resolved [facility] Work Phone: Evaluation note* Diagnosis Onset Date Resolution Status DKA (diabetic ketoacidoses) resolved Intractable nausea and vomiting resolved Nausea & vomiting resolved Acute dehydration acute DKA (diabetic ketoacidosis) acute Nausea & vomiting acute Tachycardia acute [facility] Work Phone: Evaluation note* Diagnosis Psoriasis vulgaris- Primary Other psoriasis Multiple benign nevi documented in this encounter [facility] note* Diagnosis Onset Date Resolution Status DKA (diabetic ketoacidoses) resolved Intractable nausea and vomiting resolved Nausea & vomiting resolved Acute dehydration resolved DKA (diabetic ketoacidosis) resolved Nausea & vomiting resolved Tachycardia resolved [facility] Work Phone: Evaluation note* Diagnosis Type 1 diabetes mellitus with hyperglycemia, with long-term current use of insulin (HCC)- Primary Insulin pump status documented in this encounter [facility] note* Diagnosis Type 1 diabetes mellitus with hyperglycemia, with long-term current use of insulin ([facility]) Insulin pump status documented in this encounter [facility] note* Diagnosis Type 1 diabetes mellitus with hyperglycemia, with long-term current use of insulin ([facility])- Primary Insulin pump status documented in this encounter [facility] note* Diagnosis Type 1 diabetes mellitus with hyperglycemia, with long-term current use of insulin ([facility]) documented in this encounter [facility] note* Diagnosis Obstructive sleep apnea- Primary Obstructive sleep apnea (adult) (pediatric) Dyspnea Other dyspnea and respiratory abnormality Type 1 diabetes mellitus with hyperglycemia, with long-term current use of insulin ([facility]) Insulin pump status documented in this encounter [facility] note* Diagnosis Obstructive sleep apnea- Primary Obstructive sleep apnea (adult) (pediatric) Dyspnea Other dyspnea and respiratory abnormality Diabetes mellitus type 1, controlled, without complications (HCC)- Primary Type I (juvenile type) diabetes mellitus without mention of complication, not stated as uncontrolled documented in this encounter [facility] note* Diagnosis Obstructive sleep apnea- Primary Obstructive [...] for venereal disease documented in this encounter [facility] note* Diagnosis Obstructive sleep apnea- Primary Obstructive sleep apnea (adult) (pediatric) Dyspnea Other dyspnea and respiratory abnormality Type 1 diabetes mellitus with hyperglycemia, with long-term current use of insulin (HCC)- Primary Insulin pump status documented in this encounter [facility] note* Diagnosis Obstructive sleep apnea- Primary Obstructive sleep apnea (adult) (pediatric) Dyspnea Other dyspnea and respiratory abnormality Type 1 diabetes mellitus with hyperglycemia, with long-term current use of insulin (HCC) Insulin pump status documented in this encounter [facility]* Diagnosis Psoriasis vulgaris- Primary Other psoriasis Folliculitis Other specified disease of hair and hair follicles Encounter for long-term current use of high risk medication Screening for viral disease Special screening examination for unspecified viral disease documented in this encounter [facility] note* Diagnosis Obstructive sleep apnea- Primary Obstructive sleep apnea (adult) (pediatric) Dyspnea Other dyspnea and respiratory abnormality Chronic idiopathic constipation- Primary Unspecified constipation Gastroparesis documented in this encounter [facility] note* Diagnosis Obstructive sleep apnea- Primary Obstructive sleep apnea (adult) (pediatric) Dyspnea Other dyspnea and respiratory abnormality Chronic idiopathic constipation- Primary Unspecified constipation Abdominal pain, suprapubic Abdominal pain, other specified site Chronic idiopathic constipation Unspecified constipation documented in this encounter [facility] note* Diagnosis Obstructive sleep apnea- Primary Obstructive sleep apnea (adult) (pediatric) Dyspnea Other dyspnea and respiratory abnormality Chronic idiopathic constipation Unspecified constipation documented in this encounter [facility] note* Diagnosis Psoriasis vulgaris- Primary Other psoriasis [...] of other medications documented in this encounter [facility] course Narrative No data available for this section [facility] Hospital Discharge instructions No data available for this section [facility] Hospital Discharge instructions* Attachments The following attachments cannot be sent through Care Everywhere. * Gastroparesis (Vietnamese) [facility] Additional Instructions Please follow-up with your diabetes doctor Please keep a close eye on your blood sugar and adjust your pump accordingly. Please try to drink plenty of fluids today.[facility] Work Phone: Hospital Discharge instructions Additional Instructions You have influenza B. You should start to feel better later in the week. You need to maintain hydration, keep a close eye on your sugars. You need to eat and drink, do not get behind and get dehydrated. Use ibuprofen and Tylenol. Use your albuterol inhaler.[facility] Work Phone: Progress note No data available for this section [facility] Reason for visit Narrative* Diagnostic Procedure Only (Routine) - Closed Specialty Diagnoses / Procedures Referred By Contclarisa t Referred To Contact XR IMAGING Diagnoses Chronic idiopathic constipation Procedures XR ABDOMEN 1V SUPINE RADIOLOGIC EXAM ABDOMEN 1 VIEW Leticia Hylton DO [address] [place] [address] Phone: tel: fax: [place] [phone] Referral ID Status Reason Start Date Expiration Date V isits Requested Visits Authorized [id number] Closed Auto-Generate d Referral 11/11/2024 12/11/2025 1 1 [facility] Summary Purpose Family History No Family History Records FoundNo Family History Records FoundNo Family History Records FoundNo Family History Records FoundNo Family History Records FoundNo Family History Records FoundNo Family History Records FoundNo Family History Records FoundNo Family History Records FoundNo Family History Records Found Advance Directives No Advanced Directives Records FoundDocuments on File Type Date Recorded Patient Electrical Continuity Tester Expl anation Advance Directive(s) Advance Directive(s) 01/02/2020 3:16 PM Advance Directive(s) 01/20/2016 9:39 AM Advance Directive(s) 11/13/2015 8:50 AM Advance Directive(s) 02/27/2014 5:42 PM Advance Directive(s) 01/09/2014 8:55 PM Advance Directive(s) 12/25/2012 9:16 PM Documents on File Type Date Recorded Patient Electrical Continuity Tester Expl anation Advance Directive(s) 02/27/2014 5:42 PM Advance Directive(s) 01/09/2014 8:55 PM Advance Directive(s) 12/25/2012 9:16 PM Documents on File Type Date Recorded Patient Electrical Continuity Tester Expl anation Advance Directive(s) 02/27/2014 5:42 PM [...] No April 26 3 9:30pm Power of Weapons And Tactics Instructor No April 26, 2 023 9:30pm Advance Directive Response Recorded Date/ Time Living Will No April 27 3 9:26am Power of Weapons And Tactics Instructor No April 27, 2 023 9:26am Advance Directive Response Recorded Date/ Time Living Will No April 27 3 5:02pm Power of Weapons And Tactics Instructor No April 27, 2 023 5:02pm Advance Directive Response Recorded Date/ Time Living Will No May 03, 2 023 4:27am Power of Weapons And Tactics Instructor No May 03, 2023 4:27am Latest Code [...] Will No June 25 9:47am Power of Weapons And Tactics Instructor No June 25, 2023 9:47am Advance Directive Response Recorded Date/ Time Living Will No June 25 11:14pm Power of Weapons And Tactics Instructor No June 25, 2023 11:14pm Advance Directive Response Recorded Date/ Time Living Will No August 06, 2 023 8:56am Power of Weapons And Tactics Instructor No August 06, 2023 8:56am Advance Directive Response Recorded Date/ Time Living Will No August 06, 2 023 9:39pm Power of Weapons And Tactics Instructor No August 06, 2023 9:39pm Advance Directive Response Recorded Date/ Time Living Will No August 22, 2 023 2:48am Power of Weapons And Tactics Instructor No August 22, 2023 2:48am Advance Directive Response Recorded Date/ Time Living Will No September 24 5:58pm Power of Weapons And Tactics Instructor No September 24, 2023 5:58pm Advance Directive Response Recorded Date/ Time Living Will No October 17, 2 024 10:02am Power of Weapons And Tactics Instructor No October 17, 2023 10:02am Advance Directive Response Recorded Date/ Time Living Will No October 17, 2 024 12:47pm Power of Weapons And Tactics Instructor No October 17, 2023 12:47pm Advance Directive Response Recorded Date/ Time Living Will No October 25, 2 024 4:43pm Power of Weapons And Tactics Instructor No October 25, 2023 4:43pm Date Activated Date Inactivated Comments 02/01/2023 2:02 AM 02/04/2023 6:35 PM Question Answer Comments Full Code Order Discussed With: Patient Date Activated Date Inactivated Comments 11/23/2022 11:30 PM 11/26/2022 7:43 PM Question Answer Comments Full Code Order Discussed With: Patient Advance Directive Response Recorded Date/ Time Living Will No October 25, 024 5:43pm Power of Weapons And Tactics Instructor No October 25, 2023 5:43pm Date Activated Date Inactivated Comments 02/01/2023 2:02 AM 02/04/2023 6:35 PM Question Answer Comments Full Code Order Discussed With: Patient Date Activated Date Inactivated Comments 11/23/2022 11:30 PM 11/26/2022 7:43 PM Question Answer Comments Full Code Order Discussed With: Patient Advance Directive Response Recorded Date/ Time Living Will No August 07, 2 023 1:35am Power of Weapons And Tactics Instructor No August 07, 2023 1:35am Health Concerns [...] DSME/MNT MEDICAL NUTRITION ASSMT&IVNTJ INDIV EACH 15 [place] MEDICAL NUTRITION ASSMT&IVNTJ INDIV EACH 15 [place] MEDICAL NUTRITION ASSMT&IVNTJ INDIV EACH 15 [place] MEDICAL NUTRITION ASSMT&IVNTJ INDIV EACH 15 [place] Jessica Guerrero APRN.FORESTRY TECHNICAL OFFICER [address] [id number] Referral ID Status Reason Start Date Expiration Date Visits Requested Visits Authorized [id number] Authorized PCP Requested Referral 12/13/2023 12/12/2024 1 1 Specialty Diagnoses / Procedures Referred By Contac t Referred To Contact Diagnoses Psoriasis vulgaris Leesa Huddleston PA-C [address] [facility] [address] [place] [address] Referral ID Status Reason Start Date Expiration Date V isits Requested Visits Authorized [id number] Authorized 04/14/2021 05/13/2024 1 1 Specialty Diagnoses / Procedures Referred By Contac t Referred To Contact Ophthalmology Diagnoses Screening for diabetic retinopathy Procedures CONSULT TO OPHTHALMOLOGY OFFICE/OUTPATIENT [facility] 60-74 MINUTES Autumn Valadez, POT MAKER.FORESTRY TECHNICAL OFFICER [address] [place] [address] Referral ID Status Reason Start Date Expiration Date Visits Requested Visits Authorized [id number] Authorized PCP Requested Referral 01/25/2023 01/25/2024 1 1 Specialty Diagnoses / Procedures Referred By Contac t Referred To Contact Gastroenterology Diagnoses Gastroparesis due to DM (HCC) Generalized abdominal pain Procedures CONSULT TO GASTROENTEROLOGY OFFICE/OUTPATIENT [facility] 60-74 MINUTES Vivi Smith MD [address] [place] [address] [place] [address] [facility] [address] [place] [address] Referral ID Status Reason Start Date Expiration Date Visits Requested Visits Authorized [id number] Authorized PCP Requested Referral 12/09/2022 12/09/2023 1 1 Specialty Diagnoses / Procedures Referred By Contac t Referred To Contact Pain Management / PAIN MANAGEMENT Diagnoses Gastroparesis due to DM (HCC) Generalized abdominal pain Procedures CONSULT TO PAIN MGT OFFICE/OUTPATIENT [facility] 60-74 MINUTES Vvii Smith MD [address] [place] [address] Elisabet Guzmán DO [address] [facility] [place] [address] Referral ID Status Reason Start Date Expiration Date Visits Requested Visits Authorized [id number] Authorized PCP Requested Referral 12/09/2022 12/09/2023 1 1 Specialty Diagnoses / Procedures Referred By Contac t Referred To Contact Gynecology Diagnoses Menstrual irregularity Procedures CONSULT TO GYNECOLOGY OFFICE/OUTPATIENT [facility] 60-74 MINUTES Dashawn Cain, POT [employer]KER.FORE[employer] TECHNICAL OFFICER [address] [place] [address] Referral ID Status Reason Start Date Expiration Date Visits Requested Visits Authorized [id number] Authorized PCP Requested Referral Auto-Generate d Referral [...] DATE CREATED AUTHOR AUTHOR'S ORGANIZ ATION 12/28/2021 [facility] CREATED AUTHOR AUTHOR'S ORGANIZ ATION 02/12/2022 [facility] DATE CREATED AUTHOR AUTHOR'S ORGANIZ ATION 03/04/2023 [facility] DATE CREATED AUTHOR AUTHOR[facility]S [facility]IZ ATION [facility] CREATED AUTHOR AUTHOR'S ORGANIZ ATION 12/17/2023 [facility] DATE CREATED AUTHOR AUTHOR'S ORGANIZ ATION 11/13/2024 [facility] DATE CREATED AUTHOR AUTHOR'S ORGANIZ ATION 11/15/2024 [facility] DATE CREATED AUTHOR AUTHOR'S ORGANIZ ATION 01/28/2025 [facility] DATE CREATED AUTHOR AUTHOR'S ORGANIZ ATION 04/15/2025 [facility] Source Comments (unrecognize d section and content) In the event this informatio n is protected by the Federal Confidentiality of Alcohol and Drug Abuse Patient Records regulations: The Federal rules restrict any use of the information to criminally investigate or prosecute any alcohol or drug abuse patient.[facility] the event this information is protected by the Federal Confidentiality of Alcohol and Drug Abuse Patient Records regulations: The Federal rules restrict any use of the information to criminally investigate or prosecute any alcohol or drug abuse patient.[facility] the event this information is protected by the Federal Confidentiality of Alcohol and Drug Abuse Patient Records regulations: The Federal rules restrict any use of the information to criminally investigate or prosecute any alcohol or drug abuse patient.[facility] the event this information is protected by the Federal Confidentiality of Alcohol and Drug Abuse Patient Records regulations: The Federal rules restrict any use of the information to criminally investigate or prosecute any alcohol or drug abuse patient.[facility] the event this information is protected by the Federal Confidentiality of Alcohol and Drug Abuse Patient Records regulations: The Federal rules restrict any use of the information to criminally investigate or prosecute any alcohol or drug abuse patient.[facility] the event this information is protected by the Federal Confidentiality of Alcohol and Drug Abuse Patient Records regulations: The Federal rules restrict any use of the information to criminally investigate or prosecute any alcohol or drug abuse patient.[facility] the event this information is protected by the Federal Confidentiality of Alcohol and Drug Abuse Patient Records regulations: The Federal rules restrict any use of the information to criminally investigate or prosecute any alcohol or drug abuse patient.[facility] the event this information is protected by the Federal Confidentiality of Alcohol and Drug Abuse Patient Records regulations: The Federal rules restrict any use of the information to criminally investigate or prosecute any alcohol or drug abuse patient.[facility] the event this information is protected by the Federal Confidentiality of Alcohol and Drug Abuse Patient Records regulations: The Federal rules restrict any use of the information to criminally investigate or prosecute any alcohol or drug abuse patient.[facility] the event this information is protected by the Federal Confidentiality of Alcohol and Drug Abuse Patient Records regulations: The Federal rules restrict any use of the information to criminally investigate or prosecute any alcohol or drug abuse patient.[facility]In the event this information is protected by the Federal Confidentiality of Alcohol and Drug Abuse Patient Records regulations: The Federal rules restrict any use of the information to criminally investigate or prosecute any alcohol or drug abuse patient.[facility] the event this information is protected by the Federal Confidentiality of Alcohol and Drug Abuse Patient Records regulations: The Federal rules restrict any use of the information to criminally investigate or prosecute any alcohol or drug abuse patient.[facility] the event this information is protected by the Federal Confidentiality of Alcohol and Drug Abuse Patient Records regulations: The Federal rules restrict any use of the information to criminally investigate or prosecute any alcohol or drug abuse patient.[facility] WestIn the event this information is protected by the Federal Confidentiality of Alcohol and Drug Abuse Patient Records regulations: The Federal rules restrict any use of the information to criminally investigate or prosecute any alcohol or drug abuse patient.[facility]In the event this information is protected by the Federal Confidentiality of Alcohol and Drug Abuse Patient Records regulations: The Federal rules restrict any use of the information to criminally investigate or prosecute any alcohol or drug abuse patient.[facility]In the event this information is protected by the Federal Confidentiality of Alcohol and Drug Abuse Patient Records regulations: The Federal rules restrict any use of the information to criminally investigate or prosecute any alcohol or drug abuse patient.[facility] WestIn the event this information is protected by the Federal Confidentiality of Alcohol and Drug Abuse Patient Records regulations: The Federal rules restrict any use of the information to criminally investigate or prosecute any alcohol or drug abuse patient.[facility] WestIn the event this information is protected by the Federal Confidentiality of Alcohol and Drug Abuse Patient Records regulations: The Federal rules restrict any use of the information to criminally investigate or prosecute any alcohol or drug abuse patient.[facility] WestIn the event this information is protected by the Federal Confidentiality of Alcohol and Drug Abuse Patient Records regulations: The Federal rules restrict any use of the information to criminally investigate or prosecute any alcohol or drug abuse patient.[facility] WestIn the event this information is protected by the Federal Confidentiality of Alcohol and Drug Abuse Patient Records regulations: The Federal rules restrict any use of the information to criminally investigate or prosecute any alcohol or drug abuse patient.[facility]In the event this information is protected by the Federal Confidentiality of Alcohol and Drug Abuse Patient Records regulations: The Federal rules restrict any use of the information to criminally investigate or prosecute any alcohol or drug abuse patient.[facility] WestIn the event this information is protected by the Federal Confidentiality of Alcohol and Drug Abuse Patient Records regulations: The Federal rules restrict any use of the information to criminally investigate or prosecute any alcohol or drug abuse patient.[facility] WestIn the event this information is protected by the Federal Confidentiality of Alcohol and Drug Abuse Patient Records regulations: The Federal rules restrict any use of the information to criminally investigate or prosecute any alcohol or drug abuse patient.[facility] WestIn the event this information is protected by the Federal Confidentiality of Alcohol and Drug Abuse Patient Records regulations: The Federal rules restrict any use of the information to criminally investigate or prosecute any alcohol or drug abuse patient.[facility] WestIn the event this information is protected by the Federal Confidentiality of Alcohol and Drug Abuse Patient Records regulations: The Federal rules restrict any use of the information to criminally investigate or prosecute any alcohol or drug abuse patient.[facility] WestIn the event this information is protected by the Federal Confidentiality of Alcohol and Drug Abuse Patient Records regulations: The Federal rules restrict any use of the information to criminally investigate or prosecute any alcohol or drug abuse patient.[facility] WestIn the event this information is protected by the Federal Confidentiality of Alcohol and Drug Abuse Patient Records regulations: The Federal rules restrict any use of the information to criminally investigate or prosecute any alcohol or drug abuse patient.[facility] WestIn the event this information is protected by the Federal Confidentiality of Alcohol and Drug Abuse Patient Records regulations: The Federal rules restrict any use of the information to criminally investigate or prosecute any alcohol or drug abuse patient.[facility] WestIn the event this information is protected by the Federal Confidentiality of Alcohol and Drug Abuse Patient Records regulations: The Federal rules restrict any use of the information to criminally investigate or prosecute any alcohol or drug abuse patient.[facility] WestIn the event this information is protected by the Federal Confidentiality of Alcohol and Drug Abuse Patient Records regulations: The Federal rules restrict any use of the information to criminally investigate or prosecute any alcohol or drug abuse patient.[facility] WestIn the event this information is protected by the Federal Confidentiality of Alcohol and Drug Abuse Patient Records regulations: The Federal rules restrict any use of the information to criminally investigate or prosecute any alcohol or drug abuse patient.[facility] WestIn the event this information is protected by the Federal Confidentiality of Alcohol and Drug Abuse Patient Records regulations: The Federal rules restrict any use of the information to criminally investigate or prosecute any alcohol or drug abuse patient.[facility] WestIn the event this information is protected by the Federal Confidentiality of Alcohol and Drug Abuse Patient Records regulations: The Federal rules restrict any use of the information to criminally investigate or prosecute any alcohol or drug abuse patient.[facility] WestIn the event this information is protected by the Federal Confidentiality of Alcohol and Drug Abuse Patient Records regulations: The Federal rules restrict any use of the information to criminally investigate or prosecute any alcohol or drug abuse patient.[facility] WestIn the event this information is protected by the Federal Confidentiality of Alcohol and Drug Abuse Patient Records regulations: The Federal rules restrict any use of the information to criminally investigate or prosecute any alcohol or drug abuse patient.[facility] WestIn the event this information is protected by the Federal Confidentiality of Alcohol and Drug Abuse Patient Records regulations: The Federal rules restrict any use of the information to criminally investigate or prosecute any alcohol or drug abuse patient.[facility] WestIn the event this information is protected by the Federal Confidentiality of Alcohol and Drug Abuse Patient Records regulations: The Federal rules restrict any use of the information to criminally investigate or prosecute any alcohol or drug abuse patient.[facility] WestIn the event this information is protected by the Federal Confidentiality of Alcohol and Drug Abuse Patient Records regulations: The Federal rules restrict any use of the information to criminally investigate or prosecute any alcohol or drug abuse patient.[facility] WestIn the event this information is protected by the Federal Confidentiality of Alcohol and Drug Abuse Patient Records regulations: The Federal rules restrict any use of the information to criminally investigate or prosecute any alcohol or drug abuse patient.[facility] the event this information is protected by the Federal Confidentiality of Alcohol and Drug Abuse Patient Records regulations: The Federal rules restrict any use of the information to criminally investigate or prosecute any alcohol or drug abuse patient.[facility] WestIn the event this information is protected by the Federal Confidentiality of Alcohol and Drug Abuse Patient Records regulations: The Federal rules restrict any use of the information to criminally investigate or prosecute any alcohol or drug abuse patient.[facility] WestIn the event this information is protected by the Federal Confidentiality of Alcohol and Drug Abuse Patient Records regulations: The Federal rules restrict any use of the information to criminally investigate or prosecute any alcohol or drug abuse patient.[facility] WestIn the event this information is protected by the Federal Confidentiality of Alcohol and Drug Abuse Patient Records regulations: The Federal rules restrict any use of the information to criminally investigate or prosecute any alcohol or drug abuse patient.[facility] WestIn the event this information is protected by the Federal Confidentiality of Alcohol and Drug Abuse Patient Records regulations: The Federal rules restrict any use of the information to criminally investigate or prosecute any alcohol or drug abuse patient.[facility] WestIn the event this information is protected by the Federal Confidentiality of Alcohol and Drug Abuse Patient Records regulations: The Federal rules restrict any use of the information to criminally investigate or prosecute any alcohol or drug abuse patient.[facility] WestIn the event this information is protected by the Federal Confidentiality of Alcohol and Drug Abuse Patient Records regulations: The Federal rules restrict any use of the information to criminally investigate or prosecute any alcohol or drug abuse patient.[facility] WestIn the event this information is protected by the Federal Confidentiality of Alcohol and Drug Abuse Patient Records regulations: The Federal rules restrict any use of the information to criminally investigate or prosecute any alcohol or drug abuse patient.[facility] WestIn the event this information is protected by the Federal Confidentiality of Alcohol and Drug Abuse Patient Records regulations: The Federal rules restrict any use of the information to criminally investigate or prosecute any alcohol or drug abuse patient.[facility] WestIn the event this information is protected by the Federal Confidentiality of Alcohol and Drug Abuse Patient Records regulations: The Federal rules restrict any use of the information to criminally investigate or prosecute any alcohol or drug abuse patient.[facility] WestIn the event this information is protected by the Federal Confidentiality of Alcohol and Drug Abuse Patient Records regulations: The Federal rules restrict any use of the information to criminally investigate or prosecute any alcohol or drug abuse patient.[facility] WestIn the event this information is protected by the Federal Confidentiality of Alcohol and Drug Abuse Patient Records regulations: The Federal rules restrict any use of the information to criminally investigate or prosecute any alcohol or drug abuse patient.[facility] WestIn the event this information is protected by the Federal Confidentiality of Alcohol and Drug Abuse Patient Records regulations: The Federal rules restrict any use of the information to criminally investigate or prosecute any alcohol or drug abuse patient.[facility] WestIn the event this information is protected by the Federal Confidentiality of Alcohol and Drug Abuse Patient Records regulations: The Federal rules restrict any use of the information to criminally investigate or prosecute any alcohol or drug abuse patient.[facility] WestIn the event this information is protected by the Federal Confidentiality of Alcohol and Drug Abuse Patient Records regulations: The Federal rules restrict any use of the information to criminally investigate or prosecute any alcohol or drug abuse patient.[facility] WestIn the event this information is protected by the Federal Confidentiality of Alcohol and Drug Abuse Patient Records regulations: The Federal rules restrict any use of the information to criminally investigate or prosecute any alcohol or drug abuse patient.[facility] WestIn the event this information is protected by the Federal Confidentiality of Alcohol and Drug Abuse Patient Records regulations: The Federal rules restrict any use of the information to criminally investigate or prosecute any alcohol or drug abuse patient.[facility] WestIn the event this information is protected by the Federal Confidentiality of Alcohol and Drug Abuse Patient Records regulations: The Federal rules restrict any use of the information to criminally investigate or prosecute any alcohol or drug abuse patient.[facility] WestIn the event this information is protected by the Federal Confidentiality of Alcohol and Drug Abuse Patient Records regulations: The Federal rules restrict any use of the information to criminally investigate or prosecute any alcohol or drug abuse patient.[facility] WestIn the event this information is protected by the Federal Confidentiality of Alcohol and Drug Abuse Patient Records regulations: The Federal rules restrict any use of the information to criminally investigate or prosecute any alcohol or drug abuse patient.[facility] WestIn the event this information is protected by the Federal Confidentiality of Alcohol and Drug Abuse Patient Records regulations: The Federal rules restrict any use of the information to criminally investigate or prosecute any alcohol or drug abuse patient.[facility] WestIn the event this information is protected by the Federal Confidentiality of Alcohol and Drug Abuse Patient Records regulations: The Federal rules restrict any use of the information to criminally investigate or prosecute any alcohol or drug abuse patient.[facility] WestIn the event this information is protected by the Federal Confidentiality of Alcohol and Drug Abuse Patient Records regulations: The Federal rules restrict any use of the information to criminally investigate or prosecute any alcohol or drug abuse patient.[facility] WestIn the event this information is protected by the Federal Confidentiality of Alcohol and Drug Abuse Patient Records regulations: The Federal rules restrict any use of the information to criminally investigate or prosecute any alcohol or drug abuse patient.[facility] WestIn the event this information is protected by the Federal Confidentiality of Alcohol and Drug Abuse Patient Records regulations: The Federal rules restrict any use of the information to criminally investigate or prosecute any alcohol or drug abuse patient.[facility] WestIn the event this information is protected by the Federal Confidentiality of Alcohol and Drug Abuse Patient Records regulations: The Federal rules restrict any use of the information to criminally investigate or prosecute any alcohol or drug abuse patient.[facility] WestIn the event this information is protected by the Federal Confidentiality of Alcohol and Drug Abuse Patient Records regulations: The Federal rules restrict any use of the information to criminally investigate or prosecute any alcohol or drug abuse patient.[facility] WestIn the event this information is protected by the Federal Confidentiality of Alcohol and Drug Abuse Patient Records regulations: The Federal rules restrict any use of the information to criminally investigate or prosecute any alcohol or drug abuse patient.[facility] WestIn the event this information is protected by the Federal Confidentiality of Alcohol and Drug Abuse Patient Records regulations: The Federal rules restrict any use of the information to criminally investigate or prosecute any alcohol or drug abuse patient.[facility] WestIn the event this information is protected by the Federal Confidentiality of Alcohol and Drug Abuse Patient Records regulations: The Federal rules restrict any use of the information to criminally investigate or prosecute any alcohol or drug abuse patient.[facility] WestIn the event this information is protected by the Federal Confidentiality of Alcohol and Drug Abuse Patient Records regulations: The Federal rules restrict any use of the information to criminally investigate or prosecute any alcohol or drug abuse patient.[facility] WestIn the event this information is protected by the Federal Confidentiality of Alcohol and Drug Abuse Patient Records regulations: The Federal rules restrict any use of the information to criminally investigate or prosecute any alcohol or drug abuse patient.[facility] WestIn the event this information is protected by the Federal Confidentiality of Alcohol and Drug Abuse Patient Records regulations: The Federal rules restrict any use of the information to criminally investigate or prosecute any alcohol or drug abuse patient.[facility] WestIn the event this information is protected by the Federal Confidentiality of Alcohol and Drug Abuse Patient Records regulations: The Federal rules restrict any use of the information to criminally investigate or prosecute any alcohol or drug abuse patient.[facility] WestIn the event this information is protected by the Federal Confidentiality of Alcohol and Drug Abuse Patient Records regulations: The Federal rules restrict any use of the information to criminally investigate or prosecute any alcohol or drug abuse patient.[facility] WestIn the event this information is protected by the Federal Confidentiality of Alcohol and Drug Abuse Patient Records regulations: The Federal rules restrict any use of the information to criminally investigate or prosecute any alcohol or drug abuse patient.[facility]In the event this information is protected by the Federal Confidentiality of Alcohol and Drug Abuse Patient Records regulations: The Federal rules restrict any use of the information to criminally investigate or prosecute any alcohol or drug abuse patient.[facility] the event this information is protected by the Federal Confidentiality of Alcohol and Drug Abuse Patient Records regulations: The Federal rules restrict any use of the information to criminally investigate or prosecute any alcohol or drug abuse patient.[facility] West[facility] the event this information is protected by the Federal Confidentiality of Alcohol and Drug Abuse Patient Records regulations: The Federal rules restrict any use of the information to criminally investigate or prosecute any alcohol or drug abuse patient.[facility] West[facility] the event this information is protected by the Federal Confidentiality of Alcohol and Drug Abuse Patient Records regulations: The Federal rules restrict any use of the information to criminally investigate or prosecute any alcohol or drug abuse patient.[facility] West[facility] the event this information is protected by the Federal Confidentiality of Alcohol and Drug Abuse Patient Records regulations: The Federal rules restrict any use of the information to criminally investigate or prosecute any alcohol or drug abuse patient.[facility] Care Teams (unrecognized sec tion and content) [...] Member Role Status Dates FUNMILAYO, [facility] Primary Care Provider Active Dr. Alexandro Garces [...] Emergency P rovider Active FUNMILAYO, [facility] Primary Care Provider Active Team Status: Inactive Member Role Status Dates FUNMILAYO, [facility] Primary Care Provider Active Dr. Rm Chirinos MD Attending Provider, Emergency Provi benjie Active Team Status: Inactive Member Role Status Dates FUNMILAYO, [facility] Primary Care Provider Active Dr. Edwin Scales MD Attending Provider, Emergency Provider Active Team Status: Inactive Member Role Status Dates FUNMILAYO, [facility] Primary Care Provider Active Dr. Olvin Ibarra DO Attending Provider, Emergency Provide r Active Team Status: Inactive Member Role Status Dates No Primary Care Physician Primary Care Provider Active Juan Marquez MD Attending Provider, Emergency Provid er Active Team Status: Inactive Member Role Status Dates Out of [facility] Doctor Primary Care Provider Active Dr. Lin Johansen MD Emergency Provider Active Team Status: Inactive Member Role Status Dates FUNMILAYO, [facility] Primary Care Provider Active Dr. Alexandro Garces MD Emergency Provider Active Dr. Vita Jefferson MD Admit Provider, Attending Prov ider Active Team Status: Active Member Role [facility] Active Team Status: Inactive Member Role Status Dates No Primary Care Physician Primary Care Provider Active Dr. Siddharth Herrera MD Attending Provider, Emergency Pr ovider Active Team Status: Inactive Member Role Status Dates FUNMILAYO, SMITH Primary Care Provider Active Dr. Rm Chirinos MD Emergency Provider Active Team Status: Inactive Member Role Status Dates FUNMILAYO, [facility] Primary Care Provider Active Dr. Edwin Scales [...] Dr. Ileana Lobo MD Attending Provider Active Java Mobile Developer Relationship Specialty Start Date End Date [facility] Sr[facility] [address] [place] [address] PCP - General Family Practice 12/31/19 Latosha Johnson LSW Spirits Model 12/10/14 Vamsi Cohen MD Primary Staff Physician Cardiology 11/13/18 Java Mobile Developer Relationship Specialty Start Date End Date [facility]. [address] [place] [address] PCP - General Family Practice 12/31/19 Latosha Johnson LSW [employer] 12/10/14 Vamsi Cohen MD Primary Staff Physician Cardiology 11/13/18 Java Mobile Developer Relationship Specialty Start Date End Date [facility]. [address] [place], [place] PCP - General Family Practice 12/31/19 Latosha Johnson CONTRACT LEAD Spirits Model 12/10/14 Vamsi Cohen MD Primary Staff Physician Cardiology 11/13/18 Java Mobile Developer Relationship Specialty Start Date End Date [facility]. [address] [place], [place] PCP - General Family Practice 12/31/19 Latosha Johnson [facility] Spirits Model 12/10/14 Vamsi Cohen MD Primary Staff Physician Cardiology 11/13/18 Java Mobile Developer Relationship Specialty Start Date End Date [facility]. [address] [place], [place] PCP - General Family Practice 12/31/19 Latosha Johnson CONTRACT LEAD Sp[employer] Model 12/10/14 Vamsi Cohen MD Primary Staff Physician Cardiology 11/13/18 Java Mobile Developer Relationship Specialty Start Date End Date Dashawn Cain, POT MAKER.FORESTRY TECHNICAL OFFICER [address] [place], [place] PCP - General Family Practice 03/08/22 Latosha Johnson CONTRACT LEAD [employer] Model 12/10/14 Vamsi Cohen MD Primary Staff Physician Cardiology 11/13/18 Java Mobile Developer Relationship Specialty Start Date End Date , POT MAKER.FORESTRY TECHNICAL OFFICER [address] [place] PCP - General Family Practice 03/08/22 JohnsonLatosha khan, CONTRACT LEAD Sp[employer]its Model 12/10/14 Vamsi Cohen MD Primary Staff Physician Cardiology 11/13/18 Java Mobile Developer Relationship Specialty Start Date End Date , POT MAKER.FORESTRY TECHNICAL OFFICER [address] [place] PCP - General Family Practice 03/08/22 JohnsonLatosha khan, CONTRACT LEAD Spirits Model 12/10/14 Vamsi Cohen MD Primary Staff Physician Cardiology 11/13/18 Java Mobile Developer Relationship Specialty Start Date End Date , POT MAKER.FORESTRY TECHNICAL OFFICER [address] [place], [place] PCP - General Family Practice 03/08/22 JohnsonLatosha khan, CONTRACT LEAD Spirits Model 12/10/14 Vamsi Cohen MD Primary Staff Physician Cardiology 11/13/18 Java Mobile Developer Relationship Specialty Start Date End Date , POT MAKER.FORESTRY TECHNICAL OFFICER [address] [place] [address] PCP - General Family Practice 03/08/22 Latosha Johnson, [facility] Spirits Model 12/10/14 Vamsi Cohen MD Primary Staff Physician Cardiology 11/13/18 Java Mobile Developer Relationship Specialty Start Date End Date Paul, POT MAKER.FORESTRY TECHNICAL OFFICER [address] [facility] [place] [place] [facility] - General Family Practice 03/08/22 Latosha Johnson LSW Sp[employer] Model 12/10/14 Vamsi Cohen MD Primary Staff Physician Cardiology 11/13/18 Java Mobile Developer Relationship Specialty Start Date End Date Paul, POT MAKER.FORESTRY TECHNICAL OFFICER [address] [place], [place] PCP - General Family Practice 03/08/22 Latosha Johnson CONTRACT LEAD Sp[employer] Model 12/10/14 Vamsi Cohen MD Primary Staff Physician Cardiology 11/13/18 Java Mobile Developer Relationship Specialty Start Date End Date Paul, POT MAKER.FORESTRY TECHNICAL OFFICER [address] [place], [place] PCP - General Family Practice 03/08/22 Latosha Johnson CONTRACT LEAD Sp[employer] Model 12/10/14 Vamsi Cohen MD Primary Staff Physician Cardiology 11/13/18 Java Mobile Developer Relationship Specialty Start Date End Date Dashawn, POT MAKER.FORESTRY TECHNICAL OFFICER [address] [place], [place] PCP - General Family Practice 03/08/22 Latosha Johnson CONTRACT LEAD Spirits Model 12/10/14 Vamsi Cohen MD Primary Staff Physician Cardiology 11/13/18 Java Mobile Developer Relationship Specialty Start Date End Date DelfinDashawn, POT MAKER.FORESTRY TECHNICAL OFFICER [address] [place], [place] PCP - General Family Practice 03/08/22 Latosha Johnson, CONTRACT LEAD Sp[employer] Model 12/10/14 Vamsi Coehn MD Primary Staff Physician Cardiology 11/13/18 Java Mobile Developer Relationship Specialty Start Date End Date Alfredo Mccullough Sr. [address] [place], [place] PCP - General Family Medicine 12/31/19 03/07/22 Dashawn Cain, POT MAKER.FORESTRY TECHNICAL OFFICER [address] [place], [place] PCP - General Family Medicine 03/08/22 Latosha Johnson, CONTRACT LEAD Spirits Model 12/10/14 Vamsi Cohen MD Primary Staff Physician Cardiology 11/13/18 Java Mobile Developer Relationship Specialty Start Date End Date Dashawn Cain, POT MAKER.FORESTRY TECHNICAL OFFICER [address] [place], [place] PCP - General Family Medicine 03/08/22 Latosha Johnson, [facility] Spirits Model 12/10/14 Vamsi Cohen MD Primary Staff Physician Cardiology 11/13/18 Java Mobile Developer Relationship Specialty Start Date End Date Dashawn Cain, POT MAKER.FORESTRY TECHNICAL OFFICER [address] [place], [place] PCP - General Family Medicine 03/08/22 Latosha Johnson, [facility] Spirits Model 12/10/14 Vamsi Cohen MD Primary Staff Physician Cardiology 11/13/18 Java Mobile Developer Relationship Specialty Start Date End Date Dashawn Cain, POT MAKER.FORESTRY TECHNICAL OFFICER [address] [place] [address] PCP - General Family Medicine 03/08/22 Latosha Johnson [facility] Spirits Model 12/10/14 Vamsi Cohen MD Primary Staff Physician Cardiology 11/13/18 Java Mobile Developer Relationship Specialty Start Date End Date Paul, POT MAKER.FORESTRY TECHNICAL OFFICER [address] [place] [address] PCP - General Family Medicine 03/08/22 Latosha Johnson, [facility] Spirits Model 12/10/14 Vamsi Cohen MD Primary Staff Physician Cardiology 11/13/18 Java Mobile Developer Relationship Specialty Start Date End Date eliseoPaul, POT MAKER.FORESTRY TECHNICAL OFFICER [address] [place] [address] PCP - General Family Medicine 03/08/22 Latosha Johnson [facility] Spirits Model 12/10/14 Vamsi Cohen MD Primary Staff Physician Cardiology 11/13/18 Java Mobile Developer Relationship Specialty Start Date End Date Dashawn, POT MAKER.FORESTRY TECHNICAL OFFICER [address] [place] [address] PCP - General Family Medicine 03/08/22 Latosha Johnson, [facility] Spirits Model 12/10/14 Vamsi Cohen MD Primary Staff Physician Cardiology 11/13/18 Java Mobile Developer Relationship Specialty Start Date End Date eliseoDashawn, POT MAKER.FORESTRY TECHNICAL OFFICER [address] [place] [address] PCP - General Family Medicine 03/08/22 Latosha Johnson, [facility] Spirits Model 12/10/14 Vamsi Cohen MD Primary Staff Physician Cardiology 11/13/18 Java Mobile Developer Relationship Specialty Start Date End Date Dashawn Cain, POT MAKER.FORESTRY TECHNICAL OFFICER [address] [place] [address] PCP - General Family Medicine 03/08/22 Latosha Johnson, [facility] Spirits Model 12/10/14 Vamsi Cohen MD Primary Staff Physician Cardiology 11/13/18 Java Mobile Developer Relationship Specialty Start Date End Date Dashawn Cain, POT MAKER.FORESTRY TECHNICAL OFFICER [address] [place] [address] PCP - General Family Medicine 03/08/22 Latosha Johnson, [facility] Spirits Model 12/10/14 Vamsi Cohen MD Primary Staff Physician Cardiology 11/13/18 Java Mobile Developer Relationship Specialty Start Date End Date Dashawn Cain, POT MAKER.FORESTRY TECHNICAL OFFICER [address] [facility] [place] [address] PCP - General Family Medicine 03/08/22 Latosha Johnson [facility] Spirits Model 12/10/14 Vamsi Cohen MD Primary Staff Physician Cardiology 11/13/18 Java Mobile Developer Relationship Specialty Start Date End Date Dashawn Cain, POT MAKER.FORESTRY TECHNICAL OFFICER PCP - General Family Medicine 03/08/22 Latosha Johnson, [facility] Spirits Model 12/10/14 Vamsi Cohen MD Primary Staff Physician Cardiology 11/13/18 Java Mobile Developer Relationship Specialty Start Date End Date Dashawn Cain, POT MAKER.[facility] PCP - General Family Medicine 03/08/22 Latosha Johnson, CONTRACT LEAD Spirits Model 12/10/14 Vamsi Cohen MD Primary Staff Physician Cardiology 11/13/18 Java Mobile Developer Relationship Specialty Start Date End Date Latosha Johnson, CONTRACT LEAD Sp[employer] Model 12/10/14 Vamsi Cohen MD Primary Staff Physician Cardiology 11/13/18 Java Mobile Developer Relationship Specialty Start Date End Date Vivi Smith MD [address] [place] [address] PCP - General Family Medicine 12/08/22 Latosha Johnson LSW Spir[employer] Model 12/10/14 Vamsi Cohen MD Primary Staff Physician Cardiology 11/13/18 Java Mobile Developer Relationship Specialty Start Date End Date Vivi Smith MD [address] [place] [address] PCP - General Family Medicine 12/08/22 Latosha Johnson LSW [employer] 12/10/14 Vamsi Cohen MD Primary Staff Physician Cardiology 11/13/18 Java Mobile Developer Relationship Specialty Start Date End Date Vivi Smith MD [address] [place] [address] PCP - General Family Medicine 12/08/22 Latosha Johnson LSW Spir[employer] Model 12/10/14 Vamsi Cohen MD Primary Staff Physician Cardiology 11/13/18 Java Mobile Developer Relationship Specialty Start Date End Date Vivi Smith MD [facility] [place] [address] PCP - General Family Medicine 12/08/22 Latosha Johnson, [facility] Spirits Model 12/10/14 Vamis Cohen MD Primary Staff Physician Cardiology 11/13/18 Java Mobile Developer Relationship Specialty Start Date End Date Vivi Smith MD [address] [place] [address] PCP - General Family Medicine 12/08/22 Latosha Johnson, [facility] Spirits Model 12/10/14 Vamsi Cohen MD Primary Staff Physician Cardiology 11/13/18 Java Mobile Developer Relationship Specialty Start Date End Date Vivi Smith MD [address] [place] [address] PCP - General Family Medicine 12/08/22 Latosha Johnson, [facility] Spirits Model 12/10/14 Vamsi Cohen MD Primary Staff Physician Cardiology 11/13/18 Java Mobile Developer Relationship Specialty Start Date End Date Vivi Smith MD [address] [place] [address] PCP - General Family Medicine 12/08/22 Latosha Johnson, [facility] Spirits Model 12/10/14 Vamsi Cohen MD Primary Staff Physician Cardiology 11/13/18 Java Mobile Developer Relationship Specialty Start Date End Date Vivi Smith MD [address] [place] [address] [place] [address] PCP - General Family Medicine 12/08/22 Latosha Johnson, CONTRACT LEAD Spirits Model 12/10/14 Vamsi Cohen MD Primary Staff Physician Cardiology 11/13/18 Java Mobile Developer Relationship Specialty Start Date End Date RhetteliseoDashawn, POT MAKER.[facility] PCP - General Family Medicine 03/08/22 11/06/22 Vivi Smith MD [facility] [place] [address] PCP - General Family Medicine 12/08/22 Latosha Johnson, CONTRACT LEAD Spirits Model 12/10/14 Vamsi Cohen MD Primary Staff Physician Cardiology 11/13/18 Java Mobile Developer Relationship Specialty Start Date End Date Vivi Smith MD [address] [place] [address] PCP - General Family Medicine 12/08/22 Latosha Johnson, CONTRACT LEAD Spirits Model 12/10/14 Vamsi Cohen MD Primary Staff Physician Cardiology 11/13/18 Java Mobile Developer Relationship Specialty Start Date End Date Vivi Smith MD [facility] [place] [address] PCP - General Family Medicine 12/08/22 Latosha Johnson, CONTRACT LEAD Spirits Model 12/10/14 Vamsi Cohen MD Primary Staff Physician Cardiology 11/13/18 Java Mobile Developer Relationship Specialty Start Date End Date No, Physician [facility] PCP - General 03/20/23 Team Status: Active Member Role Status Dates No Primary Care Physician Primary Care Provider Active Dr. Lin Johansen MD Emergency Provider Active Dr. David Smith MD Admit Provider, Attending Provider Active Java Mobile Developer Relationship Specialty Start Date End Date Alfredo Mccullough MD [facility] [place] [address] PCP - General 01/18/21 Team Status: Inactive Member Role Status Dates Dr. Greg Philip DO Attending Provider, Emergency P neida Active No Primary Care Physician Primary Care Provider Active Team Status: Inactive Member Role Status Dates No Primary Care Physician Primary Care Provider Active Dr. Marc Carl DO Emergency Provider Active Java Mobile Developer Relationship Specialty Start Date End Date Vivi Smith MD [address] [place] [address] PCP - General Family Medicine 12/08/22 Latosha Johnson [facility] Spirits Model 12/10/14 Vamsi Cohen MD Primary Staff Physician [...] DO Admit Provider, Attending Pr ovider Active Java Mobile Developer Relationship Specialty Start Date End Date Vivi Smith MD [address] [place] [address] PCP - General Family Medicine 12/08/22 Latosha Johnson, CONTRACT LEAD Spirits Model 12/10/14 Vamsi Cohen MD Primary Staff Physician Cardiology 11/13/18 Java Mobile Developer Relationship Specialty Start Date End Date Gracie Godoy [address] [place] [address] PCP - General 08/15/23 Java Mobile Developer Relationship Specialty Start Date End Date Vivi Smith MD [address] [place] [address] PCP - General Family Medicine 12/08/22 Latosha Johnson, [facility] Spirits Model 12/10/14 Vamsi Cohen MD Primary Staff Physician Cardiology 11/13/18 Java Mobile Developer Relationship Specialty Start Date End Date Vivi Smith MD [address] [place] [address] PCP - General Family Medicine 12/08/22 Latosha Johnson, [facility] Spirits Model 12/10/14 Vamsi Cohen MD Primary Staff Physician Cardiology 11/13/18 Java Mobile Developer Relationship Specialty Start Date End Date Vivi Smith MD [address] [place] [address] [phone] PCP - General Family Medicine 12/08/22 Latosha Johnson, MICHELLE Spirits Model 12/10/14 Vamsi Cohen MD Primary Staff Physician Cardiology 11/13/18 Kyara Luis, medicinal plant pickerMexican Food Cook 10/12/23 Team Status: Active Member Role Status Dates SARAH MELLO Primary Care Provider Active Dr. Alexandro Garces MD Emergency Provider Active Dr. Vita Jefferson MD Admit Provider, Attending Prov ider Active Java Mobile Developer Relationship Specialty Start Date End Date Vivi Smith MD [address] [place] [address] PCP - General Family Medicine 12/08/22 Latosha Johnson LSW Spirits Model 12/10/14 Vamsi Cohen MD Primary Staff Physician Cardiology 11/13/18 Kyara Luis, medicinal plant pickerMexican Food Cook 10/12/23 Kyara Luis, medicinal plant picker Purse Maker 10/19/23 Java Mobile Developer Relationship Specialty Start Date End Date Grac[facility] [address] [place] [address] PCP - General 08/15/23 Team Status: Inactive Member Role Status Dates Out of Town Doctor Primary Care Provider Active Dr. Lin Johansen MD Attending Provider, Emergency Provider Active Team Status: Inactive Member Role Status Dates Out of Town Doctor Primary Care Provider Active Ed Physician Provider Emergency Provider Active Java Mobile Developer Relationship Specialty Start Date End Date Vivi Smith MD [address] [place] [address] PCP - General Family Medicine 12/08/22 Latosha Johnson, MICHELLE Spirits Model 12/10/14 Vamsi Cohen MD Primary Staff Physician Cardiology 11/13/18 Kyara Luis, medicinal plant pickerMexican Food Cook 10/12/23 Java Mobile Developer Relationship Specialty Start Date End Date [facility] [address] [place] [address] PCP - General 08/15/23 Java Mobile Developer Relationship Specialty Start Date End Date [facility] [address] [place] [address] PCP - General 08/15/23 Java Mobile Developer Relationship Specialty Start Date End Date Vivi Smith MD [address] [place] [address] PCP - General Family Medicine 12/08/22 Latosha Johnson, CONTRACT LEAD Spirits Model 12/10/14 Vamsi Cohen MD Primary Staff Physician Cardiology 11/13/18 Kyara Luis, medicinal plant pickerMexican Food Cook 10/12/23 Java Mobile Developer Relationship Specialty Start Date End Date Vivi Smith MD [address] [place] [address] PCP - General Family Medicine 12/08/22 Latosha Johnson LSW Spirits Model 12/10/14 Vamsi Cohen MD Primary Staff Physician Cardiology 11/13/18 Kyara Luis, medicinal plant pickerMexican Food Cook 10/12/23 Java Mobile Developer Relationship Specialty Start Date End Date Vivi Smith MD [address] [place] [address] PCP - General Family Medicine 12/08/22 Latosha Johnson LSW Spirits Model 12/10/14 Vamsi Cohen MD Primary Staff Physician Cardiology 11/13/18 Kyara Luis, medicinal plant pickerMexican Food Cook 10/12/23 Java Mobile Developer Relationship Specialty Start Date End Date Vivi Smith MD [address] [place] [address] PCP - General Family Medicine 12/08/22 Latosha Johnson LSW Spirits Model 12/10/14 Vamsi Cohen MD Primary Staff Physician Cardiology 11/13/18 Kyara Luis, medicinal plant pickerMexican Food Cook 10/12/23 Java Mobile Developer Relationship Specialty Start Date End Date [facility] [address] [place] [address] PCP - General 08/15/23 Java Mobile Developer Relationship Specialty Start Date End Date [facility] [address] [place] [address] PCP - General 08/15/23 Java Mobile Developer Relationship Specialty Start Date End Date Vivi Smith MD [address] [place] [address] PCP - General Family Medicine 12/08/22 Latosha Johnson LSW Spirits Model 12/10/14 Vamsi Cohen MD Primary Staff Physician Cardiology 11/13/18 Kyara Luis, medicinal plant pickerMexican Food Cook 10/12/23 Java Mobile Developer Relationship Specialty Start Date End Date Vivi Smith MD [address] [place] [address] PCP - General Family Medicine 12/08/22 Latosha Johnson LSW Spirits Model 12/10/14 Vamsi Cohen MD Primary Staff Physician Cardiology 11/13/18 Kyara Luis, medicinal plant pickerMexican Food Cook 10/12/23 Java Mobile Developer Relationship Specialty Start Date End Date Vivi Smith MD [address] [place] [address] PCP - General Family Medicine 12/08/22 Latosha Johnson [facility] Spirits Model 12/10/14 Vamsi Cohen MD Primary Staff Physician Cardiology 11/13/18 Kyara Luis medicinal plant pickerMexican Food Cook 10/12/23 Java Mobile Developer Relationship Specialty Start Date End Date Vivi Smith MD [address] [place] [address] PCP - General Family Medicine 12/08/22 Latosha Johnson [facility] Spirits Model 12/10/14 Vamsi Cohen MD Primary Staff Physician Cardiology 11/13/18 Kyara Luis, medicinal plant pickerMexican Food Cook 10/12/23 Java Mobile Developer Relationship Specialty Start Date End Date Vivi Smith MD [address] [place] [address] PCP - General Family Medicine 12/08/22 Latosha Johnson CONTRACT LEAD Spirits Model 12/10/14 Vamsi Cohen MD Primary Staff Physician Cardiology 11/13/18 Kyara Luis, medicinal plant pickerMexican Food Cook 10/12/23 Java Mobile Developer Relationship Specialty Start Date End Date Vivi Smith MD [address] [place] [address] PCP - General Family Medicine 12/08/22 Latosha Johnson, CONTRACT LEAD Spirits Model 12/10/14 Vamsi Cohen MD Primary Staff Physician Cardiology 11/13/18 Kyara Luis, medicinal plant pickerMexican Food Cook 10/12/23 Java Mobile Developer Relationship Specialty Start Date End Date Alfredo cMcullough MD [address] [place] [phone] PCP - General 01/18/21 Java Mobile Developer Relationship Specialty Start Date End Date Alfredo Mccullough MD [address] [place] [phone] PCP - General 01/18/21 Java Mobile Developer Relationship Specialty Start Date End Date Vivi Smith MD [address] [place] [address] PCP - General Family Medicine 12/08/22 Latosha Johnson LSW Spirits Model 12/10/14 Vamsi Cohen MD Primary Staff Physician Cardiology 11/13/18 Kyara Luis, medicinal plant pickerMexican Food Cook 10/12/23 Java Mobile Developer Relationship Specialty Start Date End Date Vivi Smith MD [address] [place] [address] PCP - General Family Medicine 12/08/22 Latosha Johnson LSW Spirits Model 12/10/14 Vamsi Cohen MD Primary Staff Physician Cardiology 11/13/18 Kyara Luis, medicinal plant pickerMexican Food Cook 10/12/23 Java Mobile Developer Relationship Specialty Start Date End Date Vivi Smith MD [address] [place] [address] PCP - General Family Medicine 12/08/22 Latosha Johnson, CONTRACT LEAD Spirits Model 12/10/14 Vamsi Cohen MD Primary Staff Physician Cardiology 11/13/18 Kyara Luis medicinal plant pickerMexican Food Cook 10/12/23 Java Mobile Developer Relationship Specialty Start Date End Date Vivi Smith MD [address] [place], [place] [phone] PCP - General Family Medicine 12/08/22 Latosha Johnson LSW Spirits Model 12/10/14 Vamsi Cohen MD Primary Staff Physician Cardiology 11/13/18 Kyara Luis medicinal plant pickerMexican Food Cook 10/12/23 Java Mobile Developer Relationship Specialty Start Date End Date Vivi Smith MD [address] [place] [id number] PCP - General Family Medicine 12/08/22 Latosha Johnson LSW Spirits Model 12/10/14 Vamsi Cohen MD Primary Staff Physician Cardiology 11/13/18 Kyara Luis medicinal plant pickerMexican Food Cook 10/12/23 Java Mobile Developer Relationship Specialty Start Date End Date Vivi Smith MD [address] [place] [id number] PCP - General Family Medicine 12/08/22 Latosha Johnson, MICHELLE Spirits Model 12/10/14 Vamsi Cohen MD Primary Staff Physician Cardiology 11/13/18 Kyara Luis, medicinal plant pickerMexican Food Cook 10/12/23 Java Mobile Developer Relationship Specialty Start Date End Date Vivi Smith MD [address] [place] [id number] PCP - General Family Medicine 12/08/22 Latosha Johnson [facility] Spirits Model 12/10/14 Vamsi Cohen MD Primary Staff Physician Cardiology 11/13/18 Kyara Luis, medicinal plant pickerMexican Food Cook 10/12/23 Java Mobile Developer Relationship Specialty Start Date End Date [facility] [address] [place] [address] PCP - General 08/15/23 Java Mobile Developer Relationship Specialty Start Date End Date [facility] [address] [place] [address] PCP - General 08/15/23 Reason for Visit [...] Referred By Contac t Referred To Contact DIESEL INSTRUCTOR Diagnoses STD exposure ROCEPHIN INJECTION - GONORRHEA Procedures INJECTION Phoebe, POT MAKER.FORESTRY TECHNICAL OFFICER [address] [place] [address] Phoebe, POT MAKER.FORESTRY TECHNICAL OFFICER [address] [place] [phone] Referral ID Status Reason Start Date Expiration Date V isits Requested Visits Authorized [id number] Closed Benefit Check 05/10/2022 08/27/2022 1 1 [...] Expiration Date Visits Re quested Visits Authorized [id number] 1 1 Reason Onset Date Comments Med Refill 05/02/2023 Reason Comments High Blood Sugar Reason Onset Date Comments Transition Of Care 08/15/2023 Reason Onset Date Comments Mexican Food Cook Chronic Care 09/29/2023 Reason Onset Date Comments Refill Request 09/21/2023 Reason Comments Forms DME: CCS for pump gleason pplies Reason Onset Date Comments Mexican Food Cook Chronic Care 10/12/2023 Reason Onset Date Comments Transition Of Care 10/19/2023 Message Reason Onset Date Comments Transition Of Care 10/20/2023 Reason Onset Date Comments Transition Of Care 10/27/2023 Reason Onset Date Comments Transition Of Care 11/03/2023 Reason Onset Date Comments Transition Of Care 11/10/2023 Reason Comments Psoriasis (PKN) Reason Onset Date Comments Mexican Food Cook Chronic Care 12/15/2023 Reason Onset Date Comments [...] DSME MEDICAL NUTRITION ASSMT&IVNTJ INDIV EACH 15 [place] MEDICAL NUTRITION ASSMT&IVNTJ INDIV EACH 15 NV MEDICAL NUTRITION ASSMT&IVNTJ INDIV EACH 15 NV MEDICAL NUTRITION ASSMT&IVNTJ INDIV EACH 15 NV Kvng Lewis MD [address] [place] [address] Referral ID Status Reason Start Date Expiration Date V isits Requested Visits Authorized [id number] Closed PCP Requested Referral 03/12/2024 03/12/2025 1 [...] PLACED TUBE OR TUBE less than 14 Albanian. To administer dissolved tablet(s) mix with 4 [...] - Provider: Sixto Mercado RN)[id number] (Return to [facility] - Provider: Liang Boothe RN) promethazine (PHENERGAN) suppository 12.5 mg 12.5 mg, Rectal, Every 6 hours PRN, nausea, vomiting, Starting on Mon03/21/23 at 1006 sodium chloride (PF) (NS) 0.9 % contrast line flush 10 mL (COMPLETED) 10 mL, Intravenous, Once in imaging, contrast, Per medical and scientific illustrator (Radiology) for line patency check prior to contrast administration, Starting on Mon03/20/23 at 0551, For 1 dose 0806 (Given - Provider: Kaylyn Alvarado, TECHNOLOGIST) sodium chloride (PF) (NS) 0.9 % contrast line flush 80 mL (COMPLETED) 80 mL, Intravenous, Once in imaging, contrast, Per medical and scientific illustrator (Radiology), Starting on Mon03/20/23 at 0551, For [...] BE BASED ON THE PRIMARY CLINICAL RECORDS. [employer] provides no warranty or guarantee of the accuracy or completeness of information in this document.
[2025-05-03] MEDS: KCL 20MEQ in D5.45NS 20 MEQ/1,000 ML IV.SOLN. 150 MEQ IV (22:31)
[2025-05-04] VITALS (25 sets, daily range): BP systolic 78–137; BP diastolic 42–81; PULSE 52–90; RESP 14–56; TEMP 36.4–36.6; O2SAT 95–99; BMI 23.6
[2025-05-04 00:13] LABS: Anion Gap 15 (5-15); Carbon Dioxide 16.5 mmol/L (21.0-32.0); Chloride 105 mmol/L (98-108); Magnesium 2.0 mg/dL (1.5-2.2); Potassium 4.0 mmol/L (3.3-5.1)
--- NOTE | 2025-05-04 03:33 | NURSING ---
pt admitted from ED for DKA. pt arrives to icu nausea/vomiting. pt awake, alert, ambulating independently. pt only answering questions intermittantly. when asked pt how she feels and if she is in pain pt responds i feel the way that i feel.
[2025-05-04 04:27] LABS: Hematocrit 35.3 % (37-47); Hemoglobin 11.6 g/dL (12.0-15.0); Immature Granulocytes Count 0.050 X10^3/uL (0.0-0.0); Mean Corp Hgb Conc 32.9 g/dL (32-36); Mean Corpuscular Volume 88.9 fL (81-99); Mean Platelet Vol. 12.7 fl (6.2-12.0); NRBC Flagged by Analyzer 0 % (0-5); Platelet Count 133 K/mm3 (150-450); RBC Distribution Width CV 13.3 % (11.6-14.6); RBC Distribution Width SD 43.7 fl (35.1-43.9); Red Blood Count 3.97 M/mm3 (4.2-5.4); White Blood Count 12.2 K/mm3 (4.4-11.0)
[2025-05-04] MEDS: KCL 20MEQ in D5.45NS 20 MEQ/1,000 ML IV.SOLN. 150 MEQ IV ×3 (05:15→19:27)
[2025-05-04 05:29] LABS: Anion Gap 14 (5-15); BUN 11 mg/dL (4-19); BUN/Creat Ratio 21.8 RATIO (10-20); Calcium,Total 7.4 mg/dL (7.6-11.0); Carbon Dioxide 13.0 mmol/L (21.0-32.0); Chloride 108 mmol/L (98-108); Estimated Creatinine Clearance 196.75 ml/min (50-250); Glucose 193 mg/dL (70-99); Magnesium 1.8 mg/dL (1.5-2.2); Potassium 3.9 mmol/L (3.3-5.1)
[2025-05-04 08:40] LABS: Anion Gap 13 (5-15); BETA-HYDROXYBUTYRATE 2.6 mmol/L (0.0-0.3); BUN 10 mg/dL (4-19); BUN/Creat Ratio 17.8 RATIO (10-20); Calcium,Total 8.8 mg/dL (7.6-11.0); Carbon Dioxide 17.2 mmol/L (21.0-32.0); Chloride 102 mmol/L (98-108); Estimated Creatinine Clearance 150.82 ml/min (50-250); Glucose 237 mg/dL (70-99); Magnesium 2.0 mg/dL (1.5-2.2); Potassium 4.4 mmol/L (3.3-5.1)
[2025-05-04 13:46] LABS: Anion Gap 13 (5-15); BUN 8 mg/dL (4-19); BUN/Creat Ratio 13.2 RATIO (10-20); Calcium,Total 8.8 mg/dL (7.6-11.0); Carbon Dioxide 17.4 mmol/L (21.0-32.0); Chloride 105 mmol/L (98-108); Estimated Creatinine Clearance 136.46 ml/min (50-250); Glucose 150 mg/dL (70-99); Potassium 3.8 mmol/L (3.3-5.1)
--- NOTE | 2025-05-04 14:07 | PN_ITS ---
Subjective Subjective Patient seen and examined this morning. She complained of nausea. She was admitted overnight and be managed for DKA. Blood sugars have trended down this morning and anion gap is closed x 2 but bicarb still remains low and serum beta hydroxybutyrate is still elevated. She remains on insulin drip. Objective Data Objective Data Vital Signs: Vital Signs Temp Pulse Resp BP Pulse Ox O2 Del Method 97.9 F 90 20 H 133/56 H 98 Room Air 05/04/25 08:00 05/04/25 13:00 05/04/25 13:00 05/04/25 13:00 05/04/25 12:49 05/04/25 13:00 Oxygen Delivery Method Room Air Weight: 159 lb 6.307 oz Body Mass Index (BMI) 23.6 Intake & Output: Intake and Output for Last 24 Hours 05/02/25 05/03/25 05/04/25 23:59 23:59 23:59 Intake Total 1013.99 / 1013.99 2059. / 2059.22 Balance 1013.99 / 1013.99 2059. / 2059. Lab / Micro Data 05/04/25 04:12 05/04/25 13:15 Labs: Laboratory Results - last 24 hr 05/03/25 18:30: WBC 16.4 H, RBC 4.90, Hgb 14.5, Hct 42.6, MCV 86.9, MCH 29.6, MCHC 34.0, RDW Std Deviation 42.6, RDW Coeff of Joyce 13.3, Plt Count 189, MPV 12.1 H, Immature Gran % (Auto) 0.500, Neut % (Auto) 85.7 H, Lymph % (Auto) 10.4 L, Graves % (Auto) 3.0, Eos % (Auto) 0.0, Baso % (Auto) 0.4, Absolute Neuts (auto) 14.0 H, Absolute Lymphs (auto) 1.71, Nucleated RBC % 0, Sodium 133, Potassium 4.2, Chloride 99, Carbon Dioxide 12.8 L, Anion Gap 22 H, BUN 17, Creatinine 0.80, Est GFR (MDRD) Non-Af 102, BUN/Creatinine Ratio 21.6 H, Glucose 314 H, Calcium 9.7, Magnesium 2.1, b-Hydroxybutyric mmol/L 3.2 H 05/03/25 18:31: Urine Color Yellow, Urine Clarity Clear, Urine pH 6.0, Ur Specific [place] 1.025, Urine Protein 100 H, Urine Glucose (UA) 1000 H, Urine Ketones 150 A*, Urine Occult Blood 25 H, Urine Nitrite Negative, Urine Bilirubin Negative, Urine Urobilinogen Normal, Ur Leukocyte Esterase Negative, Urine RBC 0 SEEN, Urine WBC 0 SEEN, Ur Squamous Epith Cells 5-10 SEEN, Urine Bacteria RARE, Urine Mucus 0 SEEN 05/03/25 18:40: POC Glucose 287 H 05/03/25 19:47: POC Glucose 303 H 05/03/25 21:26: POC Glucose 242 H 05/03/25 23:28: Sodium 136, Potassium 4.0, Chloride 105, Carbon Dioxide 16.5 L, Anion Gap 15, Phosphorus 2.2 L, Magnesium 2.0 05/03/25 23:30: POC Glucose 188 H 05/04/25 00:16: POC Glucose 186 H 05/04/25 01:38: POC Glucose 186 H 05/04/25 03:08: POC Glucose 190 H 05/04/25 04:11: POC Glucose 160 H 05/04/25 04:12: WBC 12.2 H, RBC 3.97 L, Hgb 11.6 L, Hct 35.3 L, MCV 88.9, MCH 29.2, MCHC 32.9, RDW Std Deviation 43.7, RDW Coeff of Joyce 13.3, Plt Count 133 L, MPV 12.7 H, Immature Gran % (Auto) 0.400, Neut % (Auto) 93.0 H, Lymph % (Auto) 5.2 L, Graves % (Auto) 1.3, Eos % (Auto) 0.0, Baso % (Auto) 0.1, Absolute Neuts (auto) 11.4 H, Absolute Lymphs (auto) 0.63 L, Nucleated RBC % 0, Sodium 135, Potassium 3.9, Chloride 108, Carbon Dioxide 13.0 L, Anion Gap 14, BUN 11, C reatinine 0.49 L, Estim Creat Clear Calc 196.75, Est GFR (MDRD) Non-Af 130, B UN/Creatinine Ratio 21.8 H, Glucose 193 H, Calcium 7.4 L, Phosphorus 1.9 L, Magnesium 1.8 05/04/25 06:18: POC Glucose 218 H 05/04/25 06:44: POC Glucose 224 H 05/04/25 07:31: POC Glucose 207 H 05/04/25 08:15: Sodium 133, Potassium 4.4, Chloride 102, Carbon Dioxide 17.2 L, Anion Gap 13, BUN 10, Creatinine 0.57 L, Estim Creat Clear Calc 150.82, Est GFR (MDRD) Non-Af 125, BUN/Creatinine Ratio 17.8, Glucose 237 H, Calcium 8.8, P hosphorus 2.0 L, Magnesium 2.0, b-Hydroxybutyric mmol/L 2.6 H 05/04/25 09:06: POC Glucose 204 H 05/04/25 10:27: POC Glucose 171 H 05/04/25 11:07: POC Glucose 185 H 05/04/25 11:55: Sodium Cancelled, Potassium Cancelled, Chloride Cancelled, Carbon Dioxide Cancelled, Anion Gap Cancelled, BUN Cancelled, Creatinine Cancelled, Estim Creat Clear Calc Cancelled, Est GFR (MDRD) Non-Af Cancelled, BUN/Creatinine Ratio Cancelled, Glucose Cancelled, Calcium Cancelled 05/04/25 12:53: POC Glucose 142 H 05/04/25 13:15: Sodium 136, Potassium 3.8, Chloride 105, Carbon Dioxide 17.4 L, Anion Gap 13, BUN 8, Creatinine 0.63 L, Estim Creat Clear Calc 136.46, Est GFR (MDRD) Non-Af 122, BUN/Creatinine Ratio 13.2, Glucose 150 H, Calcium 8.8 Physical Exam Const alert and oriented x3 Constitutional Narrative: frail, looks weak General Appearance: cooperative HEENT normocephalic, head/scalp atraumatic, moist oral mucous membranes and oropharynx normal Eyes EOMs intact bilaterally Neck no lymphadenopathy and supple Lymph Lymphatic: no lymphedema noted Resp normal respiratory effort, normal air movement and clear to auscultation bilaterally Cardio regular rate, regular rhythm, S1 normal heart sound, S2 normal heart sound and no murmurs GI normal to inspection, nondistended, normoactive bowel sounds, soft to palpation and non-tender Extremity normal capillary refill, no clubbing, cyanosis or edema and no calf tenderness General Extremity: no tenderness to palpation of joints or extremities Skin General Skin Exam: no breakdown Neuro CN's II-XII intact bilaterally and no sensory deficits noted Motor Exam: general weakness Psych thought process normal and cooperative Mood & Affect: flat affect Assessment & Plan Assessment/Plan (1) DKA (diabetic ketoacidosis): (2) Nausea: (3) Diabetic gastroparesis: PLAN: Plan #Acute DKA in a known type I diabetic * Patient admitted overnight with a complaint of nausea and vomiting and found to be in DKA. * On insulin drip. Anion gap is closed x 2 but her bicarb is still low at 7 beta-hydroxybutyrate is still elevated. Continue insulin drip * And monitor BMP Q4 hourly until gap closes. * Replace electrolytes as per DKA protocol * Patient has had multiple frequent admissions for DKA though she claims compliance with her insulin. #Nausea and vomiting in the setting of DKA: On Zofran present as needed. Been hydrated with IV fluids. #History of type 1 diabetes with gastroparesis: On promethazine present. Follow-up with gastroenterology on outpatient basis #History of PTSD and borderline personality disorder: On Seroquel and doxepin #History of psoriasis: On Skyrizi #History of cannabis use disorder: Says she uses medical marijuana and has a marijuana card DVT prophylaxis: Lovenox Charges/Coding Visit Charges Inpatient E&M: 44713 Subs Hosp L2
[2025-05-04 16:50] LABS: Anion Gap 11 (5-15); BUN 8 mg/dL (4-19); BUN/Creat Ratio 13.3 RATIO (10-20); Calcium,Total 9.0 mg/dL (7.6-11.0); Carbon Dioxide 19.1 mmol/L (21.0-32.0); Chloride 107 mmol/L (98-108); Estimated Creatinine Clearance 140.93 ml/min (50-250); Glucose 163 mg/dL (70-99); Potassium 4.3 mmol/L (3.3-5.1)
[2025-05-04] MEDS: Insulin Glargine-YFGN 100 UNIT/ML Pen 43 UNIT SC (19:28)
[2025-05-04] MEDS: Doxepin Hydrochloride 10 MG Capsule PO (21:26)
[2025-05-05] VITALS (10 sets, daily range): BP systolic 99–122; BP diastolic 41–67; PULSE 48–69; RESP 16–21; TEMP 36.1–36.8; O2SAT 93–98; BMI 23.3
[2025-05-05 06:52] LABS: Hematocrit 37.9 % (37-47); Hemoglobin 12.8 g/dL (12.0-15.0); Immature Granulocytes Count 0.070 X10^3/uL (0.0-0.0); Mean Corp Hgb Conc 33.8 g/dL (32-36); Mean Corpuscular Volume 89.0 fL (81-99); Mean Platelet Vol. 11.9 fl (6.2-12.0); NRBC Flagged by Analyzer 0 % (0-5); Platelet Count 170 K/mm3 (150-450); RBC Distribution Width CV 13.6 % (11.6-14.6); RBC Distribution Width SD 44.3 fl (35.1-43.9); Red Blood Count 4.26 M/mm3 (4.2-5.4); White Blood Count 12.7 K/mm3 (4.4-11.0)
[2025-05-05 07:35] LABS: Anion Gap 13 (5-15); BUN 11 mg/dL (4-19); BUN/Creat Ratio 16.4 RATIO (10-20); Calcium,Total 9.1 mg/dL (7.6-11.0); Carbon Dioxide 19.2 mmol/L (21.0-32.0); Chloride 108 mmol/L (98-108); Estimated Creatinine Clearance 132.26 ml/min (50-250); Glucose 85 mg/dL (70-99); Potassium 3.8 mmol/L (3.3-5.1)
--- NOTE | 2025-05-05 09:27 | DCINST_ITS ---
Discharge Instructions DC O2, CPAP, BIPAP needs Home O2 Discharge instructions: No Dressing / Incision Discharge Activity: Return to Normal Activity Dressing / Incision Call your doctor if you observe: Fever of 101 or Higher, Shortness of breath, Dizziness, Fainting spells, Swelling in the ankles, Chest pain and Increased palpitations (irregular heartbeat) Follow Up Care Test Results: Test results from this visit will be discussed in further detail at your follow- up appointment, if applicable. Discharge Plan Admission Admit Date/Time: 05/03/25 20:09 Attending Provider: David Smith Primary Care Provider: Jaime Barbour [facility] Consulting Providers: Ileana Lobo; Vita Jefferson Discharge Orders/Prescriptions Prescriptions: Continued pantoprazole 40 mg tablet,delayed release (DR/EC) 40 mg PO QDAY Qty: 90 1RF (DME) pen needle, diabetic [Ultra-Thin II Ins Pen [place]] 29 gauge x 1/2 needle See Rx Instructions .Route Qty: 100 0RF Rx Instructions: As directed Skyrizi 150 mg/mL pen injector 150 mg subcut .[id number] albuterol sulfate [Ventolin HFA] 90 mcg/actuation HFA aerosol inhaler 1 - 2 puff inhalation Q4H PRN PRN (Reason: Wheezing) Qty: 1 0RF cholecalciferol (vitamin D3) 1,250 mcg (50,000 unit) capsule 1,250 mcg PO QWEEK insulin lispro [Humalog U-100 Insulin] 100 unit/mL solution See Rx Instructions .ROUTE .COMPLEX Qty: 10 4RF Rx Instructions: 100 U VIA PUMP DAILY; BASAL RATE - 1.8 UNITS/HOUR BOLUS: CARB RATIO- 1 UNIT /10 GRAMS OF CARBS CORRECTION- 1 UNIT FOR EVERY 30MG/DL BLOOD GLUCOSE OVER 120 Insulin Basal Pump (Pt's Own) [Pump, Basal] 1.8 unit subcut UD Qty: 0 0RF quetiapine 50 mg tablet extended release 24 hr 50 mg PO QHS doxepin 6 mg tablet 6 mg PO QHS Discontinued gabapentin 300 mg capsule 600 mg PO BID Trulance 3 mg tablet 3 mg PO DAILY haloperidol 5 mg tablet 5 mg PO TID PRN (Reason: nausea and vomiting) Qty: 20 0RF Rx Instructions: Take 1/2-1 3 times a day as needed nausea and vomiting prochlorperazine maleate 10 mg tablet 10 mg PO TID PRN PRN (Reason: nausea/vomiting) promethazine 25 mg tablet 50 mg PO Q6H PRN (Reason: nausea and vomiting) Rx Instructions: one or two every six hours for nausea Referrals / Follow Up: Jaime Barbour VSGilberto, DIRECTOR BIOINFORMATICS-C [Primary Care Provider] - Within 1 Week Disposition Disposition (needs filled in before D/C Order can be placed): Home, Self Care
--- NOTE | 2025-05-05 10:56 | CASEMGMT ---
RN CM electroneurodiagnostic technologist CM to room to meet with pt for initial transition planning/care coordination assessment. RN CM introduced self and role at [facility], pt voices understanding and consents to assessment. Pt is A&Ox4 and is resting comfortably in the bed and is calm. Care providers, pharmacy, and demographics verified/updated. Dx: DKA Strata Score: 4 PCP: Jaime Barbour through the [facility] Specialists: Pt states that she is now established with Dr Martinez through [facility] and that her first appt is the . [facility], Dr Swartz, genetic engineer; Dr Meyers, genetic engineer; [facility]erred [facility]acy: [facility] Insurance: My Care [facility] Prescription Benefit: yes LNOK: Tiffanie Donis, sig other Living Arrangements: Pt lives with sig other and her 11 yr-old dtr in an upstairs duplex with 16 steps to enter with a rail. Pt reports she is I in ADL's (6-Click is 24). She has an aide through waiver program to help in the home and states that it is x12 hours per week MTTF. Pt states that she is active with [facility] and has an appt at 1300 today. Pt states that she is active with [facility] and that her CM is Leandra Sanchez. Pt becomes tearful and states that, They are shutting my electric off tomorrow and I don't know what to do. SW notified and plans to follow up promptly. Pt's RN plans to DC the pt in time for her appt. Transportation: Pt uses the bus/ [employer] for transportation and plans to do this at DC. Tiffanie also does not drive. DME: BP cuff. Pt states she has a functioning BGM with sufficient testing supplies including lancets, test strips, and EtOH swabs. Pt states that she takes insulin shots and has enough Pen needles. Pt states that her insulin pump has been occluding and that she has been manually checking her BS levels and administering insulin shots. Pt states that she has been compliant with this and denies needs or concerns. HHC/SNF: Pt has had HHC in the past but cannot recall the name of the agency. Pt denies SNF stays. Illicit Drug use: Pt states that she vapes nicotine off and on and THC daily. From previous admissions, THC cessation was advised from hospitalists. However, pt declines cessation resources or SW follow up regarding the matter. Pt states that she has her medical card and denies issues or concerns. Pt denies EtOH use or cigarette use. Pt Goal: DC to appt Plan: After SW follow up, anticipate DC via [employer] so the pt can make it to her follow up appt with [facility]. Pt denies any further homegoing needs and states that she feels safe discharging today. Pt denies further questions, concerns, or needs from this STIVEN SMILEY. Sinai ARIAS RN, CM
[2025-05-05] MEDS: 0.9% Saline Lock 10 ML Syringe IV (10:59)
--- NOTE | 2025-05-05 11:15 | CASEMGMT ---
Social Work RN asked for SW to see pt, as pt states her electricity is about to be turned off tomorrow. SW spoke w/pt, she has an appt with [facility] at 1pm. Pt states she had signed up for PIP/HEAP through [facility] and thought everything was good. However she just got a disconnect notice, and there was no indication on her bill that PIP/HEAP was active. She states is she can get out of hospital today will take the [employer] Bus and go to her appt. SW let pt know she is d/c and will let her RN know, and she get get out of here on time to make the appt. Pt states understanding, thanked SW. SW let RN know that pt would like to leave [facility] to get to her 1pm appt at [facility]. SW called pt's CM, Leandra Casas, left a message letting her know that pt is here but being d/c today, and also let her know that pt is concerned about her electric being shut off and has an appt at [facility] today. No further social service needs are anticipated. RUTHY Forrest
--- NOTE | 2025-05-05 12:20 | DS.PCM_ITS ---
Providers Date of Admission: 05/03/25 Primary Care Physician: SHAWNA Bellamy, HEEL MOLDER-C Reason For Visit: DKA Diagnosis Discharge Diagnosis (1) DKA (diabetic ketoacidosis): Status: Acute Code(s): E11.10 - Type 2 diabetes mellitus with ketoacidosis without coma (2) Nausea: Status: Acute Code(s): R11.0 - Nausea (3) Diabetic gastroparesis: Status: Acute Code(s): E11.43 - 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 (poly)neuropathy; K31.84 - Gastroparesis Medications at Discharge Home Medications pen needle, diabetic 29 gauge x 1/2 (Ultra-Thin II Insulin Pen [place]) #100 ea 08/10/23 risankizumab-rzaa 150 mg/mL subcutaneous pen injector (Skyrizi) 150 mg subcut .[id number] PSORIASIS 02/07/24 Insulin Basal Pump (Pt's Own) [Pump, Basal] 1.8 unit subcut UD diabetes ##0 06/11/24 albuterol sulfate 90 mcg/actuation aerosol inhaler (Ventolin HFA) 1 - 2 puff inhalation Q4H PRN PRN Wheezing ##1 08/01/24 doxepin 6 mg tablet 6 mg PO QHS insomnia 10/18/24 quetiapine 50 mg tablet,extended release 24 hr 50 mg PO QHS mood 10/18/24 cholecalciferol (vitamin D3) 1,250 mcg (50,000 unit) capsule 1,250 mcg PO QWEEK 12/14/24 insulin lispro 100 unit/mL subcutaneous solution (Humalog U-100 Insulin) See Rx Instructions .Route .COMPLEX #10 mL 01/26/25 pantoprazole 40 mg tablet,delayed release 40 mg PO QDAY garrett #90 tabs 03/31/25 Hospital Course Operations None Procedures None Summary of Care Provided Minutes Spent on Discharge: 33 Hospital Course: Per HPI: THEODORE VILLA, is a 29-year-old female with a history of psoriasis, GERD, type 1 diabetes with recurrent episodes of DKA, marijuana use who presented to [facility] ED 05/03/2025 with elevated blood glucose. Reports blood sugar was about 150 [place], [place] she was not feeling well and started vomiting around 3 PM and she was worried she was going to DKA. No longer has insulin pump because it kept occluding but reports compliance with her insulin. In the ED temp 98.4, heart rate of 103, blood pressure 140/106, respiratory rate 18 pulse ox 97% on room air. Tzuar-tb-ocom glucose 287. CBC with white count of 16.4, BMP with a bicarb of 12.8, gap of 22, beta hydroxybutyrate 3.2, magnesium 2.1, UA with glucose and 150 ketones. Hospitalist contacted for admission for DKA. Patient evaluated bedside. Patient reports history as above, she was feeling in her usual health and then developed nausea and vomiting was concerned she went into DKA so she came here, reports she has developed diarrhea and abdominal pain which she gets when she has been DKA, denies any other new or acute complaints. Hospital Course: 1. Recurrent acute DKA with gastroparesis?29-year-old female who presents to the hospital with recurrent episodes of DKA returns to the hospital with DKA as well as nausea and vomiting. She does have a history of gastroparesis is inconsistent taking medications and is unclear to be following dietary guidelines for her gastroparesis or her diabetes. This his most recent episode occurred while at the [facility]. She had very quick recovery with her anion gap closing on the second BMP. Electrolytes were unremarkable. She continues to have nausea however this is baseline for her given her gastroparesis. Her health care is complicated by the fact that she appears to have poor insight into her disease process as well as poor access to resources. Part of the decision to discharge her today was she has an appointment at 1:00 to figure out assistance as she got a notice that her electricity was going to be turned off. She requested to be discharged as soon as possible so she can get the bus to her appointment. No changes were made to her home medications, and I do recommend that she follow-up with her primary care doctor as well as her tool room machinist. 2. History of PTSD, borderline personality disorder, insomnia, psoriasis or other chronic medical conditions which complicate her care. Her home medications were continued where appropriate. Physical Exam Narrative General: Alert, Oriented x3, Cooperative, No apparent distress HEENT: Atraumatic, PERRLA, EOMI, Normocephalic Oral: Moist Mucosa Neck: Supple, No JVD Lungs: Clear to auscultation, Normal air movement, No rhonchi, No wheeze, No rales Cardiovascular: Regular rate, Regular Rhythm, Normal S1, Normal S2, No murmurs Abdomen: Soft, Non Tender, Non-Distended, No Hepato-splenomegaly Extremities: No edema, Capillary Refill Less than 3 Seconds Skin: No rashes, No breakdown Musculoskeletal: No Tenderness to Palpation of Joints or Extremities Neurological: No focal neurological deficits, moves all extremities, sensation intact Psych/Mental Status: Flat Weight / BMI Weight Weight: 158 lb 8.198 oz Body Mass Index (BMI) 23.3 ABG / Lab / Microbiology Data 05/05/25 06:42 05/05/25 06:42 Laboratory: Laboratory Results - last 24 hr 05/04/25 11:55: Sodium Cancelled, Potassium Cancelled, Chloride Cancelled, Carbon Dioxide Cancelled, Anion Gap Cancelled, BUN Cancelled, Creatinine Cancelled, Estim Creat Clear Calc Cancelled, Est GFR (MDRD) Non-Af Cancelled, BUN/Creatinine Ratio Cancelled, Glucose Cancelled, Calcium Cancelled 05/04/25 12:53: POC Glucose 142 H 05/04/25 13:15: Sodium 136, Potassium 3.8, Chloride 105, Carbon Dioxide 17.4 L, Anion Gap 13, BUN 8, Creatinine 0.63 L, Estim Creat Clear Calc 136.46, Est GFR (MDRD) Non-Af 122, BUN/Creatinine Ratio 13.2, Glucose 150 H, Calcium 8.8 05/04/25 14:09: POC Glucose 130 H 05/04/25 15:06: POC Glucose 133 H 05/04/25 16:00: Sodium 137, Potassium 4.3, Chloride 107, Carbon Dioxide 19.1 L, Anion Gap 11, BUN 8, Creatinine 0.61 L, Estim Creat Clear Calc 140.93, Est GFR (MDRD) Non-Af 123, BUN/Creatinine Ratio 13.3, Glucose 163 H, Calcium 9.0, P hosphorus 2.2 L 05/04/25 17:06: POC Glucose 137 H 05/04/25 19:25: POC Glucose 271 H 05/04/25 21:25: POC Glucose 274 H 05/04/25 23:24: POC Glucose 209 H 05/05/25 06:42: WBC 12.7 H, RBC 4.26, Hgb 12.8, Hct 37.9, MCV 89.0, MCH 30.0, MCHC 33.8, RDW Std Deviation 44.3 H, RDW Coeff of Joyce 13.6, Plt Count 170, MPV 11.9, Immature Gran % (Auto) 0.500, Neut % (Auto) 73.0 H, Lymph % (Auto) 20.3, [place] % (Auto) 5.7, Eos % (Auto) 0.2, Baso % (Auto) 0.3, Absolute Neuts (auto) 9.3 H, Absolute Lymphs (auto) 2.59, Nucleated RBC % 0, Sodium 140, Potassium 3.8, Chloride 108, Carbon Dioxide 19.2 L, Anion Gap 13, BUN 11, Creatinine 0.65 L, Estim Creat Clear Calc 132.26, Est GFR (MDRD) Non-Af 122, BUN/Creatinine Ratio 16.4, Glucose 85, Calcium 9.1 05/05/25 07:49: POC Glucose 74 D/C Instructions Call your doctor if you observe: Fever of 101 or Higher, Shortness of breath, Dizziness, Fainting spells, Swelling in the ankles, Chest pain and Increased palpitations (irregular heartbeat) DC O2, CPAP, BIPAP Needs Home O2 Discharge instructions: No Meaningful Use Info Meaningful Use Meaningful Use Diagnoses (Choose all that apply): None applicable Discharge Plan Admission Admit Date/Time: 05/03/25 20:09 Attending Provider: David Smith Primary Care Provider: Jaime Barbour [facility] Consulting Providers: Ileana Lobo; Vita Jefferson Discharge Orders/Prescriptions Prescriptions: Continued pantoprazole 40 mg tablet,delayed release (DR/EC) 40 mg PO QDAY Qty: 90 1RF (DME) pen needle, diabetic [Ultra-Thin II Ins Pen [place]] 29 gauge x 1/2 needle See Rx Instructions .Route Qty: 100 0RF Rx Instructions: As directed Skyrizi 150 mg/mL pen injector 150 mg subcut .[id number] albuterol sulfate [Ventolin HFA] 90 mcg/actuation HFA aerosol inhaler 1 - 2 puff inhalation Q4H PRN PRN (Reason: Wheezing) Qty: 1 0RF cholecalciferol (vitamin D3) 1,250 mcg (50,000 unit) capsule 1,250 mcg PO QWEEK insulin lispro [Humalog U-100 Insulin] 100 unit/mL solution See Rx Instructions .ROUTE .COMPLEX Qty: 10 4RF Rx Instructions: 100 U VIA PUMP DAILY; BASAL RATE - 1.8 UNITS/HOUR BOLUS: CARB RATIO- 1 UNIT /10 GRAMS OF CARBS CORRECTION- 1 UNIT FOR EVERY 30MG/DL BLOOD GLUCOSE OVER 120 Insulin Basal Pump (Pt's Own) [Pump, Basal] 1.8 unit subcut UD Qty: 0 0RF quetiapine 50 mg tablet extended release 24 hr 50 mg PO QHS doxepin 6 mg tablet 6 mg PO QHS Discontinued gabapentin 300 mg capsule 600 mg PO BID Trulance 3 mg tablet 3 mg PO DAILY haloperidol 5 mg tablet 5 mg PO TID PRN (Reason: nausea and vomiting) Qty: 20 0RF Rx Instructions: Take 1/2-1 3 times a day as needed nausea and vomiting prochlorperazine maleate 10 mg tablet 10 mg PO TID PRN PRN (Reason: nausea/vomiting) promethazine 25 mg tablet 50 mg PO Q6H PRN (Reason: nausea and vomiting) Rx Instructions: one or two every six hours for nausea Referrals / Follow Up: Jaime Barbour VSGilberto, HEEL MOLDER-C [Primary Care Provider] - Within 1 Week Disposition Disposition (needs filled in before D/C Order can be placed): Home, Self Care Charges/Coding Visit Charges Inpatient E&M: 15805 Disch Hosp >30min
== END 2025-05-05 11:30 | disposition home or self-care (01) | DRG 639 ==
LOC: ED 19:30 → ICU 19:56
PROVIDERS: Student in an Organized Health Care Education/Training Program; Admitting Provider Internal Medicine; Emergency Provider Emergency Medicine; Visit Provider Family Medicine
DX: E10.10 Type 1 diabetes mellitus with ketoacidosis without coma (principal); E10.43 Type 1 diabetes mellitus with diabetic autonomic (poly)neuropathy; F32.A Depression, unspecified; F60.3 Borderline personality disorder; K21.9 Gastro-esophageal reflux disease without esophagitis; K31.84 Gastroparesis; F17.290 Nicotine dependence, other tobacco product, uncomplicated; F41.9 Anxiety disorder, unspecified; L40.9 Psoriasis, unspecified; Z79.4 Long term (current) use of insulin; Z96.41 Presence of insulin pump (external) (internal); Z98.51 Tubal ligation status; Z90.49 Acquired absence of other specified parts of digestive tract; Z79.899 Other long term (current) drug therapy; F43.10 Post-traumatic stress disorder, unspecified
CPT/HCPCS: 80048; 80051; 81001; 82010; 82962; 83735; 84100; 85025; 93005; 99284; A4216

== ENCOUNTER 2025-08-09 21:13 | Inpatient (IN) | payer MEDICARE, MEDICAID, SELFPAY ==
[2025-08-09 21:15] VITALS: BP 135/84; PULSE 126; RESP 20; TEMP 36.8; O2SAT 97; BMI 26.3
[2025-08-09 21:21] VITALS: PULSE 131; RESP 16; O2SAT 97
--- NOTE | 2025-08-09 21:28 | EKG12_ITS ---
Test Reason : DYSRHYTHMIA Blood Pressure : */* mmHG Vent. Rate : 91 BPM Atrial Rate : 91 BPM P-R Int : 130 ms QRS Dur : 78 ms QT Int : 364 ms P-R-T Axes : 55 69 59 degrees QTcB Int : 447 ms Normal sinus rhythm Normal ECG Confirmed by TOMASA LOCKE, SAMUEL ([id number]), senior editor JHOANA NESBITT ([id number]) on 08/12/2025 1:10:18 PM Referred By: Confirmed By: SAMUEL RANDOLPH MD
[2025-08-09 21:30] VITALS: BP 135/89; O2SAT 96
--- NOTE | 2025-08-09 21:30 | EDS_ITS ---
HPI History of Present Illness Chief Complaint: Hyperglycemia Informant: patient and EMS Narrative Narrative: 30-year-old female presenting to the emergency room via EMS out of concerns for DKA. Patient states she is a type I diabetic who has been having problems with intermittent ketones and hyperglycemia since June. She currently sees [place] [facility] for her diabetes care. She has a history of gastroparesis and states that she has been vomiting today but also intermittently through June. Patient states that the last time she had DKA was when she was here last which would have been according to the chart in April. In addition to diabetic gastroparesis states she prior diagnosis of cyclic vomiting. She notes an allergy to Zofran. She notes chronic alteration between diarrhea and constipation. She states she has been taking her insulin. [facility] Medical History Type 1 diabetes Leukocytosis Hx of diabetic gastroparesis Diabetic keto-acidosis Intractable nausea and vomiting DKA, type 1 Insulin dependent diabetes mellitus Wears glasses Marijuana use Syncope Gastroparesis Electronic cigarette use History of echocardiogram History of stress test Cardiology follow-up encounter Metabolic acidosis Vomiting delivery delivered History of marijuana use Hx of diabetic gastroparesis Diabetes mellitus with hyperglycemia Intractable cyclical vomiting with nausea Depression Compensated metabolic acidosis Dysuria UTI (urinary tract infection) Hypokalemia Metabolic acidosis Leukocytosis Intractable abdominal pain Intractable nausea and vomiting Panic disorder Major depressive disorder, recurrent severe without psychotic features Diabetic gastroparesis Substance abuse Kidney stones Kidney disease Smoker Intractable vomiting Type 1 diabetes Marfan syndrome PTSD (post-traumatic stress disorder) Borderline personality disorder Home Medications ?Medication ?Instructions ?Recorded ?Last Taken ?Type pen needle, diabetic 29 gauge x #100 ea 08/10/23 Unkno wn Rx 1/2 (Ultra-Thin II Insulin Pen [place]) risankizumab-rzaa 150 mg/mL 150 mg subcut .[id number] PS ORIASIS 02/07/24 02/03/25 History subcutaneous pen injector (Skyrizi) albuterol sulfate 90 mcg/actuation 1 - 2 puff inhalati on Q4H PRN PRN 08/01/24 Unknown Rx aerosol inhaler (Ventolin HFA) Wheezing ##1 doxepin 6 mg tablet 6 mg PO QHS insomnia 5 03/04/25 History quetiapine 50 mg tablet,extended 50 mg PO QHS mood 03/04/25 History release 24 hr pantoprazole 40 mg tablet,delayed 40 mg PO QDAY garrett #9 0 tabs 03/31/25 Unknown Rx release blood-glucose sensor (FreeStyle #2 ea 05/21/25 Unknown Rx Rosario 3 Plus Sensor device) blood-glucose,green end man,cont #1 ea 05/21/25 Unknown Rx (FreeStyle Rosario 3 [place]) cholecalciferol (vitamin D3) 50 50 mcg PO QDAY #90 cap s 05/21/25 Unknown Rx mcg (2,000 unit) capsule dextromethorphan IR 45 1 tab PO QAM 05/21/25 Unknow n History mg-bupropion ER 105 mg biphasic tablet (Auvelity) gabapentin 600 mg tablet 600 mg PO BID PRN anxiety 08/08/25 History insulin lispro 100 unit/mL 15 unit (0.15 mL) subcut TI D #15 mL 05/21/25 Unknown Rx subcutaneous pen (Humalog KwikPen (U-100) Insulin) propranolol 10 mg tablet 10 mg PO BID PRN anxiety Unknown History blood sugar diagnostic (Contour #100 ea 05/28/25 Unkno wn Rx Next Test Strips) insulin glargine 100 unit/mL (3 36 unit subcut QHS Unknown History mL) subcutaneous pen (Lantus Solostar U-100 Insulin) Allergy/AdvReac Type Severity Reaction Status Date / Time adhesive tape Allergy Intermediate Rash Verified 08/09/25 21:15 cephalexin (From Keflex) Allergy Intermediate yeast Verified 08/09/25 21:15 infection morphine Allergy Intermediate Rash Verified 08/09/25 21:15 oxycodone (From Percocet) Allergy Intermediate Rash Verified 08/09/25 21:15 ondansetron AdvReac I BLACK Verified 08/09/25 21:15 OUT AND LOSE CONTROL OF MY BLADDER Family History Mother Anxiety and depression Bipolar disorder PCOS (polycystic ovarian syndrome) Father Valvular heart disease Surgical History H/O tubal ligation History of loop recorder Hx of appendectomy Hx of eye surgery H/O aortic root repair Social History household members: spouse Smoking Status: Current every day smoker tobacco type: e-cigarettes Tobacco: How many years used: 3 Electronic Cigarette Use: with nicotine second hand exposure: No alcohol intake: never substance use type: marijuana ROS ROS ED Constitutional Constitutional ED: Reports sweats; Denies chills, fever(s) or weight loss Eyes Eyes: Denies change in vision or diplopia ENT ENT ED: Denies ear pain, rhinorrhea or sore throat Cardiovascular Cardiovascular: Denies chest pain, orthopnea, palpitations or racing heartbeat Respiratory/Chest Respiratory/Chest: Denies cough, dyspnea or orthopnea Gastrointestinal Gastrointestinal: Reports abdominal pain, constipation, diarrhea, nausea and vomiting Genitourinary Genitourinary ED: Denies dysuria, hematuria or urinary frequency Musculoskeletal Musculoskeletal: Denies arthralgias or myalgias Integumentary Denies abscess or rash Neurologic Neurologic: Reports headache(s); Denies weakness Psychiatric Psychiatric: Denies anxiety, depression, suicidal ideation or suicidal thoughts Endocrine Endocrinology: Denies polydipsia, polyphagia or polyuria Allergic/Immunologic Allergic/Immunologic ED: Denies mouth swelling, tongue swelling or urticaria EXAM Physical Exam Narrative Exam Narrative: 30-year-old female sitting up in the bed actively vomiting. Const Vital Signs: 08/09/25 21:15 08/09/25 21:15 08/09/25 21:21 Temperature 98.2 F Temperature Source Oral Pulse Rate 126 H 131 H Respiratory Rate 20 H 16 Respiratory Effort Short of Breath Labored Respiratory Pattern Tachypnea Blood Pressure 135/84 H Blood Pressure Mean 101 Pulse Ox 97 97 Oxygen Delivery Method Room Air Room Air 08/09/25 21:30 08/09/25 22:01 Temperature Temperature Source Pulse Rate 115 H Respiratory Rate 26 H Respiratory Effort Respiratory Pattern Blood Pressure 135/89 H Blood Pressure Mean 99 Pulse Ox 96 98 Oxygen Delivery Method Room Air Room Air Positive well nourished and well developed General Appearance ED: well developed, diaphoretic and NAD HEENT Reports normocephalic, head/scalp atraumatic and moist mucous membranes Eyes PERRL and EOMs intact bilaterally Neck no lymphadenopathy, supple and no JVD Resp normal respiratory effort and clear to auscultation bilaterally Cardio regular rate, regular rhythm and no murmurs Rate: tachycardic GI non-tender Inspection: Negative for abdominal distention Palpation: soft and tender; Negative for guarding or rebound tenderness present Back/Spine no CVA tenderness and normal ROM Extremity normal to inspection General Extremety ED: Negative for edema General Extremity: Negative for edema Neuro oriented x3 and CN's II-XII intact bilaterally Sensorium / Orientation: alert Motor Exam: strength 5/5 throughout Psych Mood & Affect: tearful Skin no rashes or lesions noted and no wounds MDM MDM MDM Narrative Medical decision making narrative: Differential diagnosis includes diabetic ketoacidosis dehydration electrolyte abnormalities acute kidney injury gastroparesis cyclic vomiting syndrome bowel obstruction Ezidh-we-vaaw glucose is 418. VBG shows a pH of 7.406 pCO2 20.1 PO2 74.5 HCO3 12.6 2 L of normal saline was ordered as well as IM Phenergan Ativan and Pepcid. Basic blood work was obtained that shows a white count of 15.5 hemoglobin of 15 platelet count of 220. Patient's carbon dioxide on BMP is 10.1 with a gap of 28. Beta hydroxybutyrate is elevated substantially at 5.9. No evidence of UTI. Toxicology positive for cannabinoids. Normal LFTs. test is negative. After IV fluids the patient was started on insulin drip. Plan of care is admission into hospital. History & Record Review Discussion w/independent historian: EMS personnel and Patient Additional record(s) reviewed:: Prior inpatient record, Prior ED visit and Prior labs Lab Data Attestation: I reviewed the patient's lab results. Labs: Laboratory Results - last 24 hr 08/09/25 08/09/25 08/09/25 21:18 21:44 21:53 WBC 15.5 H RBC 5.03 Hgb 15.0 Hct 45.4 MCV 90.3 MCH 29.8 MCHC 33.0 RDW Std Deviation 42.5 RDW Coeff of Joyce 13.0 Plt Count 220 MPV 12.0 Immature Gran % (Auto) 1.000 H Neut % (Auto) 84.8 H Lymph % (Auto) 10.3 L [place] % (Auto) 3.6 Eos % (Auto) 0.0 Baso % (Auto) 0.3 Absolute Neuts (auto) 13.1 H Absolute Lymphs (auto) 1.60 Nucleated RBC % 0 Sodium 133 Potassium 4.6 Chloride 95 L Carbon Dioxide 10.1 L Anion Gap 28 H BUN 18 Creatinine 1.12 Estim Creat Clear Calc 82.82 Est GFR (MDRD) Non-Af 67 BUN/Creatinine Ratio 16.4 Glucose 448 H Calcium 9.8 Magnesium 1.8 Total Bilirubin 0.86 Direct Bilirubin 0.27 AST 18 ALT 11 Alkaline Phosphatase 96 Total Protein 7.7 Albumin 4.5 Globulin 3.2 Lipase 13 b-Hydroxybutyric mmol/L 5.9 H Serum , Qual NEGATIVE Urine Color Yellow Urine Clarity Clear Urine pH 5.0 Ur Specific [place] 1.025 Urine Protein 30 H Urine Glucose (UA) 1000 H Urine Ketones 150 A* Urine Occult Blood Negative Urine Nitrite Negative Urine Bilirubin Negative Urine Urobilinogen Normal Ur Leukocyte Esterase Negative Urine RBC 0-5 SEEN Urine WBC 0-5 SEEN Ur Squamous Epith Cells 0-5 SEEN Urine Bacteria 1+ Urine Mucus 0 SEEN Urine Opiates Screen NEGATIVE U Buprenorphine Qual NEGATIVE Ur Oxycodone Screen NEGATIVE Urine Methadone Screen NEGATIVE Urine Fentanyl Screen NEGATIVE Ur Barbiturates Screen NEGATIVE Ur Phencyclidine Scrn NEGATIVE Ur Amphetamines Screen NEGATIVE U Benzodiazepines Scrn NEGATIVE Urine Cocaine Screen NEGATIVE U Cannabinoids Screen PRESUMPTIVE POSITIVE POC Glucose 418 H ABG Data ABG results: ABG 08/09/25 22:06 Specimen Type ISABELLE Sample Site Not entered VBG pH 7.41 VBG pO2 75 H VBG HCO3 13 L VBG Total CO2 13 L VBG O2 Sat (Calc) 95 H VBG Base Excess -12 L POC Mix VBG pCO2 Pt Tmp 20.1 L O2 Delivery Device Room Air EKG Initial EKG: Attestation: I personally reviewed and interpreted this EKG as follows: Comments: Normal sinus rhythm ventricular rate of 91 bpm. Critical Care Time Critical Care Time: Yes Critical care time (excluding procedures): 30-74 minutes (32 min), Including time spent:, Discussing w/Patient &/or Family/Practicing Md Anesthesiologist, Discussing w/Consultants, Arranging Admission or Transfer and Performing Direct Patient Care at Bedside Discharge Plan Dx/Rx/DC Orders Clinical Impression: DKA (diabetic ketoacidosis), Vomiting, Nausea Disposition Disposition: [facility]
[2025-08-09 21:47] LABS: Mucous, Urine 0 SEEN /hpf (<or=2+)
[2025-08-09 21:49] LABS: Color, Urine Yellow (Yellow); Glucose, Dipstick 1000 mg/dl (Normal); Leukocyte Esterase-Dipstick Negative /ul (Negative); Nitrite-Dipstick Negative (Negative); Occult Blood-Urine Negative /ul (Negative); Protein-Dipstick 30 mg/dl (Negative); Specific Gravity, Urine 1.025 (1.002-1.030); Urine Bilirubin Dipstick Negative (Negative)
[2025-08-09 21:56] LABS: Ketone-Dipstick 150 mg/dl (Negative)
[2025-08-09] MEDS: Famotidine 200 MG/20 ML MDV 20 MG in 0.9% Normal Saline (Pres. free 8 ML 300 MG IV (21:57)
[2025-08-09] MEDS: proMETHazine 25 MG/ML Syringe 12.5 MG IM (21:57)
[2025-08-09] MEDS: 0.9% Normal Saline (1000mL) 1,000 ML 1000 ML IV (21:57)
[2025-08-09 22:01] VITALS: PULSE 115; RESP 26; O2SAT 98
[2025-08-09 22:07] LABS: Hematocrit 45.4 % (37-47); Hemoglobin 15.0 g/dL (12.0-15.0); Immature Granulocytes Count 0.160 X10^3/uL (0.0-0.0); Mean Corp Hgb Conc 33.0 g/dL (32-36); Mean Corpuscular Volume 90.3 fL (81-99); Mean Platelet Vol. 12.0 fl (6.2-12.0); NRBC Flagged by Analyzer 0 % (0-5); Platelet Count 220 K/mm3 (150-450); RBC Distribution Width CV 13.0 % (11.6-14.6); RBC Distribution Width SD 42.5 fl (35.1-43.9); Red Blood Count 5.03 M/mm3 (4.2-5.4); White Blood Count 15.5 K/mm3 (4.4-11.0)
[2025-08-09 22:10] LABS: SITE Not entered; VBG BASE EXCESS -12 mmol/L (-1.0-3.5); VBG PO2 75 mmHg (25-40); VBG SO2 95 % (50-70); VBG TCO2 13 mmol/L (23-33)
[2025-08-09 22:12] LABS: Red Blood Cells-Urine 0-5 SEEN /hpf (0-5); Squamous Epithelial Cells - UA 0-5 SEEN /hpf (5-10)
[2025-08-09 22:14] LABS: Internal QC Validated? YES +Cl - CLEAR BKGD; Pregnancy, Serum, hCG Quali. NEGATIVE Negative
[2025-08-09 22:29] LABS: BETA-HYDROXYBUTYRATE 5.9 mmol/L (0.0-0.3); Lipase 13 U/L (13-75); Magnesium 1.8 mg/dL (1.5-2.2)
--- OUTSIDE RECORDS SUMMARY | 2025-08-09 22:39 | XMS RPT_ITS | CCD ---
Author Organization [facility] Care Team Providers Care Commercial Account Executive Name Role Phone MEDICAL, CLINIC Unavailable Unavailable TEACH, MTS LUCY Unavailable Unavailable VAMSI MARRUFO Unavailable Unavailable MEDICAL, CLINIC Unavailable Unavailable Latosha Castro Unavailable Unavailab Vamsi Zaidi MD Unavailable [facility] Primary Care Provi benjie PHYSICIAN, PATIENT UNSURE Primary Care Physician Unavailable Kamwesa PACKING ATTENDANT.Dashawn MALAVE Primary Care Provider Vamsi Cohen MD Unavailable Kamwesa PACKING ATTENDANT.Dashawn MALAVE Primary Care Provider Vamsi Cohen MD Unavailable [facility] Care Provi benjie Kamwesa PACKING ATTENDANT.Dashawn MALAVE Primary Care Provider Latosha Castro Unavailable Unavailab Vamsi Zaidi MD Unavailable Kamwesa PACKING ATTENDANT.Dashawn MALAVE Primary Care Provider Kamwesa PACKING ATTENDANT.Dashawn MALAVE Primary Care Provider Vivi Smith MD Primary Care Provider Kamwesa PACKING ATTENDANT.Dashawn MALAVE Primary Care Provider No, Physician Primary [...] Jamel LOCKE, Alfredo Primary Care Provider [phone] Vamsi Cohen MD Unavailable Dr. Ileana Lobo Attending Provider Care Physician, No Primary Primary Care Provider Unavailable Dr. Lin Johansen Emergency Provider Dr. David Smith Admit Provider Dr. David Smith Attending Provider Dr. David Smith Other Provider Dr. Ileana Lobo Attending Provider Dr. Ileana Lobo Other Provider [facility] Primary Care Provider Unav ailDr. Lul eFrrell Emergency Provider Dr. Vamsi Duvall Admit Provider Unavailabl e Dr. Vamsi Duvall Other Provider Unavailabl e Dr. Dangelo Encarnacion Attending Provider Dr. Dangelo Encarnacion Other Provider Care Physician, No Primary Primary Care Provider Unavailable Toby SALEEM, Kyara Richter Unavailable Unavailab FUNMILAYO Del Angel Primary Care Provider Dr. Alexandro Garces Emergency Provider Dr. Vita Jefferson Admit Provider [phone] Koram, Dr. Vita Rojas Attending Provider [phone] Koram, Dr. Vita Rojas Other Provider Toby SALEEM, Kyara Richter Unavailable Unavailab le Care Physician, No Primary Primary Care Provider Unavailable Dr. Lul Singh Emergency Provider Dr. Vamsi Duvall Admit Provider Unavailvera e Dr. Vamsi Duvall Other Provider Unavailabl e Alysha, Dr. Pierson Attending Provider [phone] Dr. Dangelo Encarnacion Other Provider FUNMILAYO SMITH [...] SMITH, VIVI BARAHONA Attending Unavailabl e SMITH, [facility] BAR[facility]ONA Primary Care Unavailabl e SMITH, AHVAAngel BARAHONA Primary Care Unavailabl e SMITH, AHVAAngel KHPARTICIO Primary Care Unavailabl e CAMILO CENTENO Admitting Unavailable DAVID BURNETT Attending Unavailable KVNG LEWIS Consulting Unavailable Sarah LOCKE, Vivi Barahona Primary Care Provider Jamel LOCKE, Alfredo Cobb Primary Care Provider [phone] Vamsi Cohen MD Unavailable LETICIA HYLTON Referring Unavailable SMITH, AHMAD KHPATRICIO Primary Care Unavailabl e SMITH, AHMAD KHPATRICIO Primary Care Unavailabl e LETICIA HYLTON Attending Unavailable SMITH, AHMAD KHPARTICIO Primary Care Unavailabl e JESSICA GUERRERO Attending Unavailable MSITH, AHVAD [facility] Primary Care UnavailKVNG Bush Attending Unavailable SMITH, [facility] Primary Care Unavailabl e JASON PAREDES Attending Unavailable SMITH, AHMAD [facility] Primary Care Unavailabl e JASON PAREDES Referring Unavailable SMITH, [facility] Primary Care Unavailvera e JESSICA GUERRERO Attending Unavailable KVNG LEWIS Referring Unavailable SMITH, [facility] Primary Care Unavailabl e LETICIA HYLTON Attending Unavailable SMITH, [facility] Primary Care Unavailabl e MSIHEL ORTEZ Attending Unavailable [facility], [facility] Primary Care Unavailable Edie Bear Attending Unavailable Care Physician, No Primary Primary Care Unava ilable Rm Chirinos Attending Unavailable Care Physician, No Primary Primary Care Unava ilable David Smith Attending Unavailable Yamil Ileana Consulting Unavailable Ileana Lobo Admitting Unavailable Beam VSC, Zebulun Primary Care Unavailable Koram, Vita Crystal Consulting Unavailable Lobo Ileana Consulting Unavailable Lobo Ileana Admitting Unavailable Care Physician, No Primary Primary Care Unava ilable John Knapp Attending Unavailable Kenyetta Suarez Consulting Unavailable John Knapp Consulting Unavailable Lobo, Ileana Admitting Unavailable Lobo, Ileana Consulting Unavailable Beam VSC, Zebulun Primary Care Unavailable Dangelo Encarnacion Attending Unavailable Beam VSC, Zebulun Primary Care Unavailable Lin Rowe Referring Unavailable Lin Rowe Attending Unavailable Beam VSC, Zebubaudilio Attending Unavailable Beam VSC, Zebulun Primary Care Unavailable Joseph VSBrit Macias Attending Unavailabl e Care Physician, No Primary Primary Care Unava ilable Edie Bear Attending Unavailable Edie Bear Referring Unavailable Care Physician, No Primary Primary Care Unava ilable David Smith Consulting Unavailable Beam VSC, Zebulun Primary Care Unavailable Marc Carl Referring Unavailable Estevan Davis Attending Unavailable David Smith Admitting Unavailable Ronny, Vita Crystal Consulting Unavailable Vamsi Duvall Consulting Unavailable Vamsi Duvall Admitting Unavailable Estevan Davis Attending Unavailable Care Physician, No Primary Primary Care Unava ilable John Knapp Attending Unavailable Dangelo Encarnacion Consulting Unavailable Care Physician, No Primary Primary Care Unava ilable Dangelo Encarnacion Admitting Unavailable Dangelo Encarnacion Referring Unavailable Vita Jefferson Consulting Unavailable Truman Gee Attending Unavailable Beam VSC, Zebulun Referring Unavailable Beam VSC, Zebulun Primary Care Unavailable Edie Bear Attending Unavailable Care Physician, No Primary Primary Care Unava ilable Beam VSC, Zebulun Primary Care Unavailable ENZO PUTNAM Attending Unavailable Beam VSC, Zebulun Primary Care Unavailable Laine Garcia Attending Unavailable Beam VSC, Zebulun Primary Care Unavailable Laine Garcia Attending Unavailable Dangelo Encarnacion Consulting Unavailable Dangelo Encarnacion Attending Unavailable Beam VSC, Zebulun Primary Care Unavailable Dangelo Encarnacion Admitting Unavailable Ileana Lobo Attending Unavailable White, Ramya L Referring Unavailable White, Ramya L Admitting Unavailable White, Ramya L Consulting Unavailable White, Ramya L Attending Unavailable Care Physician, No Primary Primary Care Unava ilable Beam VSC, Zebulun Primary Care Unavailable Vita Jefferson Attending Unavailable Siddharth Saucedo Admitting Unavailable Siddharth Saucedo Consulting Unavailable Pa Woo Consulting Unavailable Yosvany Anders Consulting Unavailable Lino Helton Consulting Unavailable Umair Hayes Consulting Unavailable Vamsi Reese Consulting Unavailable Roberto Rivera Consulting Unavailable Sukhdev Temple Consulting Unavailable Siri Cedeno Consulting Unavailab Caldwell Balwinder Consulting Unavailable Valdo Jeff Consulting Unavailable Lul Gamez Consulting Unavailable Sarah Walters Consulting Unavailable Jean Paul Bae Consulting Unavailable Mendoza, Paris Consulting Unavailable Kenneth, Chase Consulting Unavailable Emmanuel Avilezan Consulting Unavailable Everette, Aleksander Consulting Unavailable Dhesi, Sedrick Consulting Unavailable Nelda Hopper Consulting Unavailable Vu Strauss Consulting Unavailable Jose A Anderson Consulting Unavailable Harman Roche Consulting Unavailable Anita Klein Consulting Unavailable Ileana Lobo Admitting Unavailable Ileana Lobo Consulting Unavailable Beam VSC, Zebulun Primary Care Unavailable Dangelo Encarnacion Attending Unavailable Dangelo Encarnacion Consulting Unavailable Vita Jefferson Attending Unavailable Ileana Lobo Consulting Unavailable Ileana Lobo Admitting Unavailable Beam VSC, Zebulun Primary Care Unavailable Koram, Vita Crystal Consulting Unavailable Ileana Lobo Consulting Unavailable Ileana Lobo Attending Unavailable Ileana Loob Admitting Unavailable Beam VSC, Zebulun Primary Care Unavailable Koram, Vita Crystal Attending Unavailable David Smith Consulting Unavailable David Smith Admitting Unavailable Beam VSC, Zebulun Primary Care Unavailable Marc Carl Referring Unavailable Koram, Vita Crystal Consulting Unavailable David Smith Attending Unavailable John Knapp Attending Unavailable Care Physician, No Primary Primary Care Unava ilable Dangelo Encarnacion Consulting Unavailable Dangelo Encarnacion Admitting Unavailable Dangelo Encarnacion Referring Unavailable Koram, Vita Crystal Consulting Unavailable John Knapp Consulting Unavailable Tammyam, Vita Crystal Attending Unavailable Dangelo Encarnacion Attending Unavailable Kenyetta Suarez Consulting Unavailable Kenyetta Suarez Admitting Unavailable John Knapp Attending Unavailable Care Physician, No Primary Primary Care Unava ilable John Knapp Consulting Unavailable Kenyetta Suarez Attending Unavailable John Knapp Attending Unavailable Koram, Vita Crystal Consulting Unavailable Koram, Vita Crystal Attending Unavailable David Smith Attending Unavailable David Smith Consulting Unavailable Vamsi Duvall Consulting Unavailable Vamsi Duvall Admitting Unavailable Estevan Davis Attending Unavailable Care Physician, No Primary Primary Care Unava ilable Estevan Davis Consulting Unavailable Beam VSC, Zebulun Referring Unavailable Beam VSC, Zebulun Primary Care Unavailable Nguyen Montes Attending Unavailable Beam VSC, Zebulun Referring Unavailable Beam VSC, Zebulun Primary Care Unavailable Lin Rowe Attending Unavailable Beam VSC, Zebulun Referring Unavailable Beam VSC, Zebulun Primary Care Unavailable Lin Rowe Attending Unavailable Vamsi Duvall Attending Unavailable Kenyetta Suarez Attending Unavailable Truman Gee Attending Unavailable Beam VSC, Zebulun Referring Unavailable Beam VSC, Zebulun Primary Care Unavailable Truman Gee Consulting Unavailable White, Ramya L Referring Unavailable White, Ramya L Consulting Unavailable White, Ramya L Admitting Unavailable Care Physician, No Primary Primary Care Unava ilable John Knapp Attending Unavailable Koram, Vita Crystal Consulting Unavailable Ileana Lobo Admitting Unavailable Ileana Lobo Consulting Unavailable John Knapp Attending Unavailable Care Physician, No Primary Primary Care Unava ilable Kenyetta Suarez Consulting Unavailable Olvin Ibarra Referring Unavailable Olvin Ibarra Attending Unavailable Care Physician, No Primary Primary Care Unava ilable Dangelo Encarnacion Consulting Unavailable Beam VS, [facility] Primary Care Unavailable Greg Mon Attending Unavailable Dangelo Encarnacion Admitting Unavailable Kenyetta Suarez Consulting Unavailable Kenyetta Suarez Admitting Unavailable John Knapp Attending Unavailable Care Physician, No Primary Primary Care Unava ilable Ronny, Vita Crystal Attending Unavailable Beam VSC, [facility] Primary Care Unavailable Siddharth Saucedo Consulting Unavailable Siddharth Saucedo [...] araujo Consulting Unavailable Kenneth, Chase Consulting Unavailable Godwin Avilez Consulting Unavailable Aleksander Gaviria Consulting Unavailable Sedrick James Consulting Unavailable Nelda Hopper Consulting Unavailable Vu Strauss Consulting Unavailable Jose A Anderson Consulting Unavailable Harman Roche Consulting Unavailable Anita Klein Consulting Unavailable Lizz Jeffersona Crystal Consulting Unavailable Sergey Islas Attending Unavailable Care Physician, No Primary Primary Care Unava ilable Tammyam, Vita Crystal Referring Unavailable Umair Hayes Attending Unavailable Beam VSC, [facility] Primary Care Unavailable Siddharth Saucedo Attending Unavailable Greg Mon Attending Unavailable Greg Mon Consulting Unavailable Estevan Davis Attending Unavailable Estevan Davis Consulting Unavailable Ileana Lobo Attending Unavailable Allergies Allergy Classification Reported Allergen(s) Allergy Type Date of Onset Reaction(s) Facility Acetaminophen / oxyCODONE (2 sources) Acetaminophen / oxyCODONE Drug Allergy 4 Itching, Rash, Intolerance [facility] Adhesive Tape (1 source) Adhesive Tape Substance Allergy 4 Rash [facility] Cephalosporins (antibiotic) (2 sources) Cephalexin Drug Allergy 4 Other: See Comments [facility] NSAIDs (1 source) Indomethacin Drug Allergy 4 Rash [facility] Ondansetron (2 sources) Ondansetron Drug Allergy 5 Other: See Comments [facility] Opioid Agonists (2 sources) Morphine Drug Allergy 4 Itching, Rash [facility] (20 sources) Acetaminophen / oxyCODONE; Translations: [acetaminophen-ox ycodone] Drug Allergy 4 Rash, Intolerance, Itching [facility] (20 sources) Adhesive Tape; Translations: [ADHESIVE TAPE (ROSINS)] Allergy to substance 4 Rash [facility] (20 sources) Cephalexin; Translations: [cephalexin] Drug Allergy 4 Other: See Comments, Urinary tract infectious disease (disorder) [facility] Work Phone: (20 sources) Morphine; Translations: [morphine] Drug Allergy 4 Rash, Itching [facility] (20 sources) Ondansetron; Translations: [ONDANSETRON HCL (PF)] Drug Allergy 5 Other: See Comments, Other (See Comments) [facility] (1 source) Adhesive Tape Propensity to adverse reactions to substance Redness [facility] (20 sources) Ondansetron; Translations: [ondansetron] Drug Allergy 5 I BLACK OUT AND LOSE CONTROL OF MY BLADDER [facility] (20 sources) Adhesive agent; Translations: [ADHESIVE] Drug Allergy 3 Rash [facility] (20 sources) Indomethacin; Translations: [INDOMETHACIN] Drug Allergy 4 Rash [facility] (2 sources) Adhesive Tape-Silicones; Translations: [ADHESIVE TAPE-SILICONES] Propensity to adverse reactions to drug 3 [facility] (1 source) Ondansetron; Translations: [ONDANSETRON HCL] Drug Allergy 3 [facility] (2 sources) Acetaminophen Drug Allergy 3 [facility] (15 sources) Adhesive Tape; Translations: [adhesive tape] Allergy to substance 3 Rash [facility] (15 sources) oxyCODONE Drug Allergy 3 Itching, Rash [facility] (1 source) Acetaminophen Drug Allergy 3 Itching, Rash [facility] (1 source) Wound Dressing Adhesive Drug Allergy 3 [facility] (1 source) Cephalexin Drug Allergy 5 [facility] (1 source) Morphine Drug Allergy 5 [facility] (1 source) Ondansetron Drug Allergy 5 [facility] (1 source) oxyCODONE Drug Allergy 5 [facility] Medications Current Medications Medication Drug Class(es) Dates Sig (Normalized) Sig (Original) acetaminophen 325 mg / HYDROcodone bitartrate 5 mg oral tablet (2 sources) Opioid Agonist Start: 10-21-2024 take 1 tablet by mouth every six hours as needed for pain HYDROcodone-aceta minophen ([place]) 5-325 MG tablet TAKE 1 TABLET BY [...] Active Comment on above: Use as directed [id number] actuat albuterol 0.09 mg/actuat metered dose [...] on above: Take 2 tablets by mo [facility] once daily for 1 day. benzoyl [...] 12-09-2024 cholecalcifero l (Vitamin D-3) 1.25 MG (02054 UT) capsule Take by mouth 1 (one) [...] / neomycin 3.5 mg/ml / polymyxin b [id number] unt/ml ophthalmic suspension (1 source) Aminoglycoside Antibacterial, Polymyxin-class Antibacterial, Corticosteroid Start: 11-07-2022 End: 11-14-2022 take 1 drop(s) into the eye(s) four times daily neomycin/polymyxin b/dexametha(MAXITROL 3.5 MG/ML-10,000 UNIT/ML-0.1% EYE DROPS,SUSPENSION) Use 1 Drop in the right eye four times daily for 7 days. 15 mL 0 11/07/2022 11/14/2022 Active Comment on above: Use 1 Drop in the ri t eye four times daily for 7 days. [...] Comment on above: Take 1 tablet by [facility] one time only for 1 dose. gabapentin [...] solution (20 sources) Insulin Analog Start: 11-29-19 23 Insulin Aspart 100 UNIT/ML solution USE DIRECTED [...] complications ([facility]) Inject 43 Units subcutaneously every 24 hours. [...] with long-term current use of insulin (HCC) Use in the Insulin Pump for TDD [...] Comment on above: Take 1 capsule by [facility] twice daily with meals. metoclopramide 5 mg oral tablet (10 sources) Dopamine-2 Receptor Antagonist Start: take 1 tablet by mouth every eight [...] tablet (5 sources) Atypical Antipsychotic Start: 11-07-19 take 50 mg by mouth once daily [...] mL 2 08/17/2023 04/16/2024 Discontinued (Reorder) Start: 12-21-2023 Risankizumab-r zaa (Skyrizi Pen) 150 MG/ML solution [...] insulin (HCC) , Insulin pump status Use 1 [place] in the nose as needed for low [...] subcutaneously for insulin shock. 250.03 Use 1 [place] in the n ose as needed for [...] Comment on above: Take 4 tablets by [facility] as needed. heparin (1 source) Unfractionated Heparin, [...] Start: 09-02-2022 take 1 tablet by marga th every eight hours ibuprofen 800 MG tablet [...] Comment on above: Take 1 capsule by mo uth once daily. Administer on an empty stomach. [...] [Noninfective gastroenteritis and colitis, unspecified] 08-06-2023 Episodic Nutritional deficiencies (1 source) Vitamin D deficiency, unspecified; Translations: [Vitamin D deficiency, unspecified] Onset: 05-21-2025 Chronic Other aftercare (1 source) Long-term current use of drug therapy; Translations: [Other intermodal dispatcher (current) drug therapy] 01-27-2025 Episodic Other aftercare (2 sources) Other residential (current) drug therapy; Translations: [Other intermodal dispatcher (current) drug therapy] Onset: 01-27-2025 Episodic Other [...] She gets chest pain and tachycardia Other disorders of stomach and duodenum (1 source) Gastroparesis; Translations: [Gastroparesis] Onset: 05-05-2025 Episodic Other gastrointestinal disorders (20 sources) Chronic idiopathic [...] conditions (not mental disorders or infectious disease) (2 sources) Thyroid function tests abnormal; Translations: [Abnormal results of thyroid function studies] Onset: 05-21-2025 Episodic Other skin disorders (2 sources) Folliculitis; [...] Onset: 06-19-2014 Resolved: 11-05-2024 06-19-2014 Episodic Other lower respiratory disease (20 sources) [...] Test Name Value Interpretation Reference Range Facility Endocrinology Visit Reporton 05-21-2025 Endocrinology Visit Report Normal [facility] Bedside Glucoseon 05-07-2025 FINGERSTICK GLU 141 mg/dL High 74-106 [facility] Comment on above: Result Comment: EDGAR GEMENT OF PATIENT CARE PER NURSING PROTOCOL Performed By: #### L 501.080 ####[facility] [address] [place], [address] FINGERSTICK GLU 187 mg/dL High 74-106 [facility] Comment on above: Result Comment: Repe at TestMANAGEMENT OF PATIENT CARE PER NURSING PROTOCOL Performed By: #### L 501.080 ####[facility] [address] [place], [address] Basic Metabolic Profile (BMP )on 05-05-2025 BUN Normal 4-19 [facility] Comment on above: Result Comment: Canc elled via OM: MD Ordered Performed By: #### L 500.2500 ####[facility] [address] [place], [address] BUN/CRE Normal 10-20 [facility] Comment on above: Result Comment: Canc elled via OM: MD Ordered Performed By: #### L 500.2500 ####[facility] [address] [place], [address] Calcium Normal 7.6-11.0 [facility] Comment on above: Result Comment: Canc elled via OM: MD Ordered Performed By: #### L 500.2500 ####[facility] [address] [place], [address] CL Normal 98-108 [facility] Comment on above: Result Comment: Canc elled via OM: MD Ordered Performed By: #### L 500.2500 ####[facility] [address] [place], [address] CO2 Normal 21.0-32.0 [facility] Comment on above: Result Comment: Canc elled via OM: MD Ordered Performed By: #### L 500.2500 ####[facility] [address] [place], [address] CREAT,SERUM Normal 0.70-1.20 [facility] Comment on above: Result Comment: Canc elled via OM: MD Ordered Performed By: #### L 500.2500 ####[facility] [address] [place], [address] eGFR Normal >60 [facility] Comment on above: Result Comment: Canc elled via OM: MD Ordered Performed By: #### L 500.2500 ####[facility] [address] [place], [address] GAP Normal 5-15 [facility] Comment on above: Result Comment: Canc elled via OM: MD Ordered Performed By: #### L 500.2500 ####[facility] [address] [place], [address] GLU Normal 70-99 [facility] Comment on above: Result Comment: Canc elled via OM: MD Ordered Performed By: #### L 500.2500 ####[facility] [address] [place], [address] Potassium Normal 3.3-5.1 [facility] Comment on above: Result Comment: Canc elled via OM: MD Ordered Performed By: #### L 500.2500 ####[facility] [address] [place], [address] Basic Metabolic Profile (BMP) Normal 133-145 [facility] Comment on above: Result Comment: Canc elled via OM: MD Ordered Performed By: #### L 500.2500 ####[facility] [address] [place], [address] BUN/CRE 16.4 RATIO Normal 10-20 [facility] Comment on above: Performed By: #### L 500.2500 ####[facility] [address] [place], [address] Calcium [Mass/Vol] 9.1 mg/dL Normal 7.6-11.0 [facility] Comment on above: Performed By: #### L 500.2500 ####[facility] [address] [place], [address] Chloride [Moles/Vol] 108 mmol/L Normal 98-108 [facility] Comment on above: Performed By: #### L 500.2500 ####[facility] [address] [place], [address] CO2 [Moles/Vol] 19.2 mmol/L Low 21.0-32.0 [facility] Comment on above: Performed By: #### L 500.2500 ####[facility] [address] [place], [address] Creatinine [Mass/Vol] 0.65 mg/dL Low 0.70-1.20 [facility] Comment on above: Performed By: #### L 500.2500 ####[facility] [address] [place], [address] ECRCL 132.26 ml/min Normal 50-250 [facility] Comment on above: Performed By: #### L 500.2500 ####[facility] [address] [place], [address] GAP 13 Normal 5-15 [facility] Comment on above: Performed By: #### L 500.2500 ####[facility] [address] [place], [address] GFR/1.73 sq M.predicted among non-blacks MDRD (S/P/Bld) [Vol rate/Area] 122 mL/min/{1.73_m2} Normal >60 [facility] Comment on above: Result Comment: mL/m in/1.73m2 CKD-EPI Creatinine Equation (2020) Performed By: #### L 500.2500 ####[facility] [address] [place], [address] Glucose [Mass/Vol] 85 mg/dL Normal 70-99 [facility] Comment on above: Performed By: #### L 500.2500 ####[facility] [address] [place], [address] Potassium [Moles/Vol] 3.8 mmol/L Normal 3.3-5.1 [facility] [facility] Comment on above: Performed By: #### L 500.2500 ####[facility] [address] [place], [address] Sodium [Moles/Vol] 140 mmol/L Normal 133-145 [facility] Comment on above: Performed By: #### L 500.2500 ####[facility] [address] [place], [address] Urea nitrogen [Mass/Vol] 11 mg/dL Normal 4-19 [facility] Comment on above: Performed By: #### L 500.2500 ####[facility] [address] [place], [address] Bedside Glucoseon 05-05-2024 FINGERSTICK GLU 74 mg/dL Normal 74-106 [facility] Comment on above: Result Comment: EDGAR HUNG OF PATIENT CARE PER NURSING PROTOCOL Performed By: #### L 501.080 ####[facility] [address] [place], [address] CBC W/Diff, Automatedon 09-0 Absolute Lymph 2.59 X10 3/uL Normal 0.83-4.51 [facility] Comment on above: Performed By: #### L 100.0100 ####[facility] [address] [place], [address] Absolute Neut 9.3 X10 3/uL High 2.0-7.7 [facility] Comment on above: Performed By: #### L 100.0100 ####[facility] [address] [place], [address] Basophils/100 WBC (Bld) 0.3 % Normal 0-1 [facility] Comment on above: Performed By: #### L 100.0100 ####[facility] [address] [place], [address] Eosinophils/100 WBC (Bld) 0.2 % Normal 0-5 [facility] Comment on above: Performed By: #### L 100.0100 ####[facility] [address] [place], [address] Erythrocyte distribution width (RBC) [Ratio] 13.6 % Normal 11.6-14.6 [facility] Comment on above: Performed By: #### L 100.0100 ####[facility] [address] [place], [address] Hematocrit (Bld) [Volume fraction] 37.9 % Normal 37-47 [facility] Comment on above: Performed By: #### L 100.0100 ####[facility] [address] [place], [address] Hemoglobin (Bld) [Mass/Vol] 12.8 g/dL Normal 12.0-15.0 [facility] Comment on above: Performed By: #### L 100.0100 ####[facility] [address] [place], [address] IG% 0.500 Normal 0.0-0.9 [facility] Comment on above: Result Comment: IG% - Immature Granulocytes (promyelocytes, myelocytes andmetamyelocytes) > 1% indicates that a LEFT SHIFT is Present. Performed By: #### L 100.0100 ####[facility] [address] [place], [address] Lymphocytes/100 WBC (Bld) 20.3 % Normal 19-41 [facility] Comment on above: Performed By: #### L 100.0100 ####[facility] [address] [place], [address] MCH (RBC) [Entitic mass] 30.0 pg Normal 27.0-32.0 [facility] Comment on above: Performed By: #### L 100.0100 ####[facility] [address] [place], [address] MCHC (RBC) [Mass/Vol] 33.8 g/dL Normal 32-36 [facility] Comment on above: Performed By: #### L 100.0100 ####[facility] [address] [place], [address] MCV (RBC) [Entitic vol] 89.0 fL Normal 81-99 [facility] Comment on above: Performed By: #### L 100.0100 ####[facility] [address] [place], [address] Monocytes/100 WBC (Bld) 5.7 % Normal 0-10 [facility] Comment on above: Performed By: #### L 100.0100 ####[facility] [address] [place], [address] Neutrophils/100 WBC (Bld) 73.0 % High 47-70 [facility] Comment on above: Performed By: #### L 100.0100 ####[facility] [address] [place], [address] Nucleated RBC (Bld) [#/Vol] 0 10*3/uL Normal 0-5 [facility] Comment on above: Performed By: #### L 100.0100 ####[facility] [address] [place], [address] Platelet mean volume (Bld) [Entitic vol] 11.9 fL Normal 6.2-12.0 [facility] Comment on above: Performed By: #### L 100.0100 ####[facility] [address] [place], [address] Platelets (Bld) [#/Vol] 170 10*3/uL Normal 150-450 [facility] Comment on above: Performed By: #### L 100.0100 ####[facility] [address] [place], [address] RBC (Bld) [#/Vol] 4.26 10*6/uL Normal 4.2-5.4 [facility] Comment on above: Performed By: #### L 100.0100 ####[facility] [address] [place], [address] RDW SD 44.3 fl High 35.1-43.9 [facility] Comment on above: Performed By: #### L 100.0100 ####[facility] [address] [place], [address] WBC (Bld) [#/Vol] 12.7 10*3/uL High 4.4-11.0 [facility] Comment on above: Performed By: #### L 100.0100 ####[facility] [address] [place], [address] Discharge Instructionon 09-0 Discharge Instruction Normal [facility] Basic Metabolic Profile (BMP )on 05-04-2025 BUN/CRE 13.3 RATIO Normal 10-20 [facility] Comment on above: Performed By: #### L 501.2300, L500.2500 ####[facility] [address] [place], [address] Calcium [Mass/Vol] 9.0 mg/dL Normal 7.6-11.0 [facility] Comment on above: Performed By: #### L 501.2300, L500.2500 ####[facility] [address] [place], [address] Chloride [Moles/Vol] 107 mmol/L Normal 98-108 [facility] Comment on above: Performed By: #### L 501.2300, L500.2500 ####[facility] [address] [place], [address] CO2 [Moles/Vol] 19.1 mmol/L Low 21.0-32.0 [facility] Comment on above: Performed By: #### L 501.2300, L500.2500 ####[facility] [address] [place], [address] Creatinine [Mass/Vol] 0.61 mg/dL Low 0.70-1.20 [facility] Comment on above: Performed By: #### L 501.2300, L500.2500 ####[facility] [address] [place], [address] ECRCL 140.93 ml/min Normal 50-250 [facility] Comment on above: Performed By: #### L 501.2300, L500.2500 ####[facility] [address] [place], [address] GAP 11 Normal 5-15 [facility] Comment on above: Performed By: #### L 501.2300, L500.2500 ####[facility] [address] [place], [address] GFR/1.73 sq M.predicted among non-blacks MDRD (S/P/Bld) [Vol rate/Area] 123 mL/min/{1.73_m2} Normal >60 [facility] Comment on above: Result Comment: mL/m in/1.73m2 CKD-EPI Creatinine Equation (2020) Performed By: #### L 501.2300, L500.2500 ####[facility] [address] [place], [address] Glucose [Mass/Vol] 163 mg/dL High 70-99 [facility] Comment on above: Performed By: #### L 501.2300, L500.2500 ####[facility] [address] [place], [address] Potassium [Moles/Vol] 4.3 mmol/L Normal 3.3-5.1 [facility] Comment on above: Result Comment: Hemo lysis present, Results??could be affected.?? Performed By: #### L 501.2300, L500.2500 ####[facility] [address] [place], [address] Sodium [Moles/Vol] 137 mmol/L Normal 133-145 [facility] Comment on above: Performed By: #### L 501.2300, L500.2500 ####[facility] [address] [place], [address] Urea nitrogen [Mass/Vol] 8 mg/dL Normal 4-19 [facility] Comment on above: Performed By: #### L 501.2300, L500.2500 ####[facility] [address] [place], [address] BUN/CRE 13.2 RATIO Normal 10-20 [facility] Comment on above: Order Comment: REDRA W. PREVIOUS SPECIMEN REJECTED DUE TOQNS. 05/04/25 1307 Performed By: #### L 500.2500 ####[facility] [address] [place], [address] Calcium [Mass/Vol] 8.8 mg/dL Normal 7.6-11.0 [facility] Comment on above: Order Comment: REDRA W. PREVIOUS SPECIMEN REJECTED DUE TOQNS. 05/04/25 1307 Performed By: #### L 500.2500 ####[facility] [address] [place], [address] Chloride [Moles/Vol] 105 mmol/L Normal 98-108 [facility] Comment on above: Order Comment: REDRA W. PREVIOUS SPECIMEN REJECTED DUE TOQNS. 05/04/25 1307 Performed By: #### L 500.2500 ####[facility] [address] [place], [address] CO2 [Moles/Vol] 17.4 mmol/L Low 21.0-32.0 [facility] Comment on above: Order Comment: REDRA W. PREVIOUS SPECIMEN REJECTED DUE TOQNS. 05/04/25 1307 Performed By: #### L 500.2500 ####[facility] [address] [place], [address] Creatinine [Mass/Vol] 0.63 mg/dL Low 0.70-1.20 [facility] Comment on above: Order Comment: REDRA W. PREVIOUS SPECIMEN REJECTED DUE TOQNS. 05/04/251306 Performed By: #### L 500.2500 ####[facility] [address] [place], [address] ECRCL 136.46 ml/min Normal 50-250 [facility] Comment on above: Order Comment: REDRA W. PREVIOUS SPECIMEN REJECTED DUE TOQNS. 05/04/251306 Performed By: #### L 500.2500 ####[facility] [address] [place], [address] GAP 13 Normal 5-15 [facility] Comment on above: Order Comment: REDRA W. PREVIOUS SPECIMEN REJECTED DUE TOQNS. 05/04/251306 Performed By: #### L 500.2500 ####[facility] [address] [place], [address] GFR/1.73 sq M.predicted among non-blacks MDRD (S/P/Bld) [Vol rate/Area] 122 mL/min/{1.73_m2} Normal >60 [facility] Comment on above: Order Comment: REDRA W. PREVIOUS SPECIMEN REJECTED DUE TOQNS. 05/04/251306 Result Comment: mL/m in/1.73m2 CKD-EPI Creatinine Equation (2020) Performed By: #### L 500.2500 ####[facility] [address] [place], [address] Glucose [Mass/Vol] 150 mg/dL High 70-99 [facility] Comment on above: Order Comment: REDRA W. PREVIOUS SPECIMEN REJECTED DUE TOQNS. 05/04/25 1307 Performed By: #### L 500.2500 ####[facility] [address] [place], [address] Potassium [Moles/Vol] 3.8 mmol/L Normal 3.3-5.1 [facility] Comment on above: Order Comment: REDRA W. PREVIOUS SPECIMEN REJECTED DUE TOQNS. 05/04/25 1307 Performed By: #### L 500.2500 ####[facility] [address] [place], [address] Sodium [Moles/Vol] 136 mmol/L Normal 133-145 [facility] Comment on above: Order Comment: REDRA W. PREVIOUS SPECIMEN REJECTED DUE TOQNS. 05/04/25 1307 Performed By: #### L 500.2500 ####[facility] [address] [place], [address] Urea nitrogen [Mass/Vol] 8 mg/dL Normal 4-19 [facility] Comment on above: Order Comment: REDRA W. PREVIOUS SPECIMEN REJECTED DUE TOQNS. 05/04/25 1307 Performed By: #### L 500.2500 ####[facility] [address] [place], [address] BUN Normal 4-19 [facility] Comment on above: Result Comment: Mary sanchez via OM: Ordered Performed By: #### L 500.2500 ####[facility] [address] [place], [address] Result Comment: This specimen has been REJECTED due to Laboratory criteria:Quanity Not Sufficient.ICU has been notified of need of recollection.05/04/25 1306 BUN/CRE Normal 10-20 [facility] Comment on above: Result Comment: Canc elled via OM: MD Ordered Performed By: #### L 500.2500 ####[facility] [address] [place], [address] Result Comment: This specimen has been REJECTED due to Laboratory criteria:Quanity Not Sufficient.ICU has been notified of need of recollection.05/04/25 1306 Calcium Normal 7.6-11.0 [facility] Comment on above: Result Comment: Canc elled via OM: MD Ordered Performed By: #### L 500.2500 ####[facility] [address] [place], [address] Result Comment: This specimen has been REJECTED due to Laboratory criteria:Quanity Not Sufficient.ICU has been notified of need of recollection.05/04/25 1306 CL Normal 98-108 [facility] Comment on above: Result Comment: Canc elled via OM: MD Ordered Performed By: #### L 500.2500 ####[facility] [address] [place], [address] Result Comment: LYTE S IN BMP ORDER, PHOS ADDED TO BMP ORDER Performed By: #### L 501.5294 ####[facility] [address] [place], [address] Result Comment: NO S PECIMEN COLLECTED. RHEA C67 AT 0410 Result Comment: This specimen has been REJECTED due to Laboratory criteria:Quanity Not Sufficient.ICU has been notified of need of recollection.05/04/25 1306 Result Comment: ADDE D TO DIFFERENT REQU CO2 Normal 21.0-32.0 [facility] Comment on above: Result Comment: Canc elled via OM: MD Ordered Performed By: #### L 500.2500 ####[facility] [address] [place], [address] Result Comment: LYTE S IN BMP ORDER, PHOS ADDED TO BMP ORDER Performed By: #### L 501.5294 ####[facility] [address] [place], [address] Result Comment: NO S PECIMEN COLLECTED. RHEA C67 AT 0410 Result Comment: This specimen has been REJECTED due to Laboratory criteria:Quanity Not Sufficient.ICU has been notified of need of recollection.05/04/25 1306 Result Comment: ADDE D TO DIFFERENT REQU CREAT,SERUM Normal 0.70-1.20 [facility] Comment on above: Result Comment: Canc elled via OM: MD Ordered Performed By: #### L 500.2500 ####[facility] [address] [place], [address] Result Comment: This specimen has been REJECTED due to Laboratory criteria:Quanity Not Sufficient.ICU has been notified of need of recollection.05/04/25 1306 eGFR Normal >60 [facility] Comment on above: Result Comment: Canc elled via OM: MD Ordered Performed By: #### L 500.2500 ####[facility] [address] [place], [address] Result Comment: This specimen has been REJECTED due to Laboratory criteria:Quanity Not Sufficient.ICU has been notified of need of recollection.05/04/25 1306 GAP Normal 5-15 [facility] Comment on above: Result Comment: Canc elled via OM: MD Ordered Performed By: #### L 500.2500 ####[facility] [address] [place], [address] Result Comment: LYTE S IN BMP ORDER, PHOS ADDED TO BMP ORDER Performed By: #### L 501.5294 ####[facility] [address] [place], [address] Result Comment: NO S PECIMEN COLLECTED. RHEA C67 AT 0410 Result Comment: This specimen has been REJECTED due to Laboratory criteria:Quanity Not Sufficient.ICU has been notified of need of recollection.05/04/25 1306 Result Comment: ADDE D TO DIFFERENT REQU GLU Normal 70-99 [facility] Comment on above: Result Comment: Canc elled via OM: MD Ordered Performed By: #### L 500.2500 ####[facility] [address] [place], [address] Result Comment: This specimen has been REJECTED due to Laboratory criteria:Quanity Not Sufficient.ICU has been notified of need of recollection.05/04/25 1306 Potassium Normal 3.3-5.1 [facility] Comment on above: Result Comment: Canc elled via OM: MD Ordered Performed By: #### L 500.2500 ####[facility] [address] [place], [address] Result Comment: LYTE S IN BMP ORDER, PHOS ADDED TO BMP ORDER Performed By: #### L 501.5294 ####[facility] [address] [place], [address] Result Comment: NO S PECIMEN COLLECTED. RHEA C67 AT 0410 Result Comment: This specimen has been REJECTED due to Laboratory criteria:Quanity Not Sufficient.ICU has been notified of need of recollection.05/04/25 1306 Result Comment: ADDE D TO DIFFERENT REQU Basic Metabolic Profile (BMP) Normal 133-145 [facility] Comment on above: Result Comment: Canc elled via OM: MD Ordered Performed By: #### L 500.2500 ####[facility] [address] [place], [address] Result Comment: LYTE S IN BMP ORDER, PHOS ADDED TO BMP ORDER Performed By: #### L 501.5294 ####[facility] [address] [place], [address] Result Comment: NO S PECIMEN COLLECTED. RHEA C67 AT 0410 Result Comment: This specimen has been REJECTED due to Laboratory criteria:Quanity Not Sufficient.ICU has been notified of need of recollection.05/04/25 1306 Result Comment: ADDE D TO DIFFERENT REQU BUN/CRE 17.8 RATIO Normal 10-20 [facility] Comment on above: Performed By: #### L 500.2500, L501.6901, L501.5200 ####[facility] [address] [place], [address] Calcium [Mass/Vol] 8.8 mg/dL Normal 7.6-11.0 [facility] Comment on above: Performed By: #### L 500.2500, L501.6901, L501.5200 ####[facility] [address] [place], [address] Chloride [Moles/Vol] 102 mmol/L Normal 98-108 [facility] Comment on above: Performed By: #### L 500.2500, L501.6901, L501.5200 ####[facility] [address] [place], [address] CO2 [Moles/Vol] 17.2 mmol/L Low 21.0-32.0 [facility] Comment on above: Performed By: #### L 500.2500, L501.6901, L501.5200 ####[facility] [address] [place], [address] Creatinine [Mass/Vol] 0.57 mg/dL Low 0.70-1.20 [facility] Comment on above: Performed By: #### L 500.2500, L501.6901, L501.5200 ####[facility] [address] [place], [address] ECRCL 150.82 ml/min Normal 50-250 [facility] Comment on above: Performed By: #### L 500.2500, L501.6901, L501.5200 ####[facility] [address] [place], [address] GAP 13 Normal 5-15 [facility] Comment on above: Performed By: #### L 500.2500, L501.6901, L501.5200 ####[facility] [address] [place], [address] GFR/1.73 sq M.predicted among non-blacks MDRD (S/P/Bld) [Vol rate/Area] 125 mL/min/{1.73_m2} Normal >60 [facility] Comment on above: Result Comment: mL/m in/1.73m2 CKD-EPI Creatinine Equation (2020) Performed By: #### L 500.2500, L501.6901, L501.5200 ####[facility] [address] [place], [address] Glucose [Mass/Vol] 237 mg/dL High 70-99 [facility] Comment on above: Performed By: #### L 500.2500, L501.6901, L501.5200 ####[facility] [address] [place], [address] Potassium [Moles/Vol] 4.4 mmol/L Normal 3.3-5.1 [facility] Comment on above: Performed By: #### L 500.2500, L501.6901, L501.5200 ####[facility] [address] [place], [address] Sodium [Moles/Vol] 133 mmol/L Normal 133-145 [facility] Comment on above: Performed By: #### L 500.2500, L501.6901, L501.5200 ####[facility] [address] [place], [address] Urea nitrogen [Mass/Vol] 10 mg/dL Normal 4-19 [facility] Comment on above: Performed By: #### L 500.2500, L501.6901, L501.5200 ####[facility] [address] [place], [address] BUN/CRE 21.8 RATIO High 10-20 [facility] Comment on above: Performed By: #### L 500.2500, L100.0100, L501.2300, L501.5200 ####[facility] [address] [place], [address] Calcium [Mass/Vol] 7.4 mg/dL Low 7.6-11.0 [facility] Comment on above: Performed By: #### L 500.2500, L100.0100, L501.2300, L501.5200 ####[facility] [address] [place], [address] Chloride [Moles/Vol] 108 mmol/L Normal 98-108 [facility] Comment on above: Performed By: #### L 500.2500, L100.0100, L501.2300, L501.5200 ####[facility] [address] [place], [address] CO2 [Moles/Vol] 13.0 mmol/L Low 21.0-32.0 [facility] Comment on above: Performed By: #### L 500.2500, L100.0100, L501.2300, L501.5200 ####[facility] [address] [place], [address] Creatinine [Mass/Vol] 0.49 mg/dL Low 0.70-1.20 [facility] Comment on above: Performed By: #### L 500.2500, L100.0100, L501.2300, L501.5200 ####[facility] [address] [place], [address] ECRCL 196.75 ml/min Normal 50-250 [facility] Comment on above: Performed By: #### L 500.2500, L100.0100, L501.2300, L501.5200 ####[facility] [address] [place], [address] GAP 14 Normal 5-15 [facility] Comment on above: Performed By: #### L 500.2500, L100.0100, L501.2300, L501.5200 ####[facility] [address] [place], [address] GFR/1.73 sq M.predicted among non-blacks MDRD (S/P/Bld) [Vol rate/Area] 130 mL/min/{1.73_m2} Normal >60 [facility] Comment on above: Result Comment: mL/m in/1.73m2 CKD-EPI Creatinine Equation (2020) Performed By: #### L 500.2500, L100.0100, L501.2300, L501.5200 ####[facility] [address] [place], [address] Glucose [Mass/Vol] 193 mg/dL High 70-99 [facility] Comment on above: Performed By: #### L 500.2500, L100.0100, L501.2300, L501.5200 ####[facility] [address] [place], [address] Potassium [Moles/Vol] 3.9 mmol/L Normal 3.3-5.1 [facility] Comment on above: Performed By: #### L 500.2500, L100.0100, L501.2300, L501.5200 ####[facility] [address] [place], [address] Sodium [Moles/Vol] 135 mmol/L Normal 133-145 [facility] Comment on above: Performed By: #### L 500.2500, L100.0100, L501.2300, L501.5200 ####[facility] [address] [place], [address] Urea nitrogen [Mass/Vol] 11 mg/dL Normal 4-19 [facility] Comment on above: Performed By: #### L 500.2500, L100.0100, L501.2300, L501.5200 ####[facility] [address] [place], [address] Bedside Glucoseon 05-04-2025 FINGERSTICK GLU 209 mg/dL High 74-106 [facility] Comment on above: Result Comment: EDGAR GEMENT OF PATIENT CARE PER NURSING PROTOCOL Performed By: #### L 501.080 ####[facility] [address] [place], [address] FINGERSTICK GLU 274 mg/dL High 74-106 [facility] Comment on above: Result Comment: EDGAR GEMENT OF PATIENT CARE PER NURSING PROTOCOL Performed By: #### L 501.080 ####[facility] [address] [place], [address] FINGERSTICK GLU 271 mg/dL High [address] [place] [address] Comment on above: Result Comment: EDGAR GEMENT OF PATIENT CARE PER NURSING PROTOCOL Performed By: #### L 501.080 ####[facility] [address] [place], [address] FINGERSTICK GLU 137 mg/dL High -106 [facility] Comment on above: Result Comment: EDGAR GEMENT OF PATIENT CARE PER NURSING PROTOCOL Performed By: #### L 501.080 ####[facility] [address] [place], [address] FINGERSTICK GLU 133 mg/dL High 74-106 [facility] Comment on above: Result Comment: EDGAR GEMENT OF PATIENT CARE PER NURSING PROTOCOL Performed By: #### L 501.080 ####[facility] [address] [place], [address] FINGERSTICK GLU 130 mg/dL High -106 [facility] Comment on above: Result Comment: EDGAR GEMENT OF PATIENT CARE PER NURSING PROTOCOL Performed By: #### L 501.080 ####[facility] [address] [place], [address] FINGERSTICK GLU 142 mg/dL High 74-106 [facility] Comment on above: Result Comment: EDGAR GEMENT OF PATIENT CARE PER NURSING PROTOCOL Performed By: #### L 501.080 ####[facility] [address] [place], [address] FINGERSTICK GLU 185 mg/dL High 74-106 [facility] Comment on above: Result Comment: EDGAR GEMENT OF PATIENT CARE PER NURSING PROTOCOL Performed By: #### L 501.080 ####[facility] [address] [place], [address] FINGERSTICK GLU 171 mg/dL High 74-106 [facility] Comment on above: Result Comment: EDGAR GEMENT OF PATIENT CARE PER NURSING PROTOCOL Performed By: #### L 501.080 ####[facility] [address] [place], [address] FINGERSTICK GLU 204 mg/dL High 74-106 [facility] Comment on above: Result Comment: EDGAR GEMENT OF PATIENT CARE PER NURSING PROTOCOL Performed By: #### L 501.080 ####[facility] [address] [place], [address] FINGERSTICK GLU 207 mg/dL High 74-106 [facility] Comment on above: Result Comment: EDGAR GEMENT OF PATIENT CARE PER NURSING PROTOCOL Performed By: #### L 501.080 ####[facility] [address] [place], [address] FINGERSTICK GLU 224 mg/dL High 74-106 [facility] Comment on above: Result Comment: EDGAR GEMENT OF PATIENT CARE PER NURSING PROTOCOL Performed By: #### L 501.080 ####[facility] [address] [place], [address] FINGERSTICK GLU 218 mg/dL High 74-106 [facility] Comment on above: Result Comment: EDGAR GEMENT OF PATIENT CARE PER NURSING PROTOCOL Performed By: #### L 501.080 ####[facility] [address] [place], [address] FINGERSTICK GLU 160 mg/dL High 74-106 [facility] Comment on above: Result Comment: EDGAR GEMENT OF PATIENT CARE PER NURSING PROTOCOL Performed By: #### L 501.080 ####[facility] [address] [place], [address] FINGERSTICK GLU 190 mg/dL High 74-106 [facility] Comment on above: Result Comment: EDGAR GEMENT OF PATIENT CARE PER NURSING PROTOCOL Performed By: #### L 501.080 ####[facility] [address] [place], [address] FINGERSTICK GLU 186 mg/dL High 74-106 [facility] Comment on above: Result Comment: EDGAR GEMENT OF PATIENT CARE PER NURSING PROTOCOL Performed By: #### L 501.080 ####[facility] [address] [place], [address] FINGERSTICK GLU 186 mg/dL High -106 [facility] Comment on above: Result Comment: EDGAR GEMENT OF PATIENT CARE PER NURSING PROTOCOL Performed By: #### L 501.080 ####[facility] [address] [place], [address] Beta-Hydroxbytyrateon 2024 BETA-HYDROXYBUT 2.6 mmol/L High 0.0-0.3 [facility] Comment on above: Performed By: #### L 500.2500, L501.6901, L501.5200 ####[facility] [address] [place], [address] CBC W/Diff, Automatedon 09-0 Absolute Lymph 0.63 X10 3/uL Low 0.83-4.51 [facility] Comment on above: Performed By: #### L 500.2500, L100.0100, L501.2300, L501.5200 ####[facility] [address] [place], [address] Absolute Neut 11.4 X10 3/uL High 2.0-7.7 [facility] Comment on above: Performed By: #### L 500.2500, L100.0100, L501.2300, L501.5200 ####[facility] [address] [place], [address] Basophils/100 WBC (Bld) 0.1 % Normal 0-1 [facility] Comment on above: Performed By: #### L 500.2500, L100.0100, L501.2300, L501.5200 ####[facility] [address] [place], [address] Eosinophils/100 WBC (Bld) 0.0 % Normal 0-5 [facility] Comment on above: Performed By: #### L 500.2500, L100.0100, L501.2300, L501.5200 ####[facility] [address] [place], [address] Erythrocyte distribution width (RBC) [Ratio] 13.3 % Normal 11.6-14.6 [facility] Comment on above: Performed By: #### L 500.2500, L100.0100, L501.2300, L501.5200 ####[facility] [address] [place], [address] Hematocrit (Bld) [Volume fraction] 35.3 % Low 37-47 [facility] Comment on above: Performed By: #### L 500.2500, L100.0100, L501.2300, L501.5200 ####[facility] [address] [place], [address] Hemoglobin (Bld) [Mass/Vol] 11.6 g/dL Low 12.0-15.0 [facility] Comment on above: Performed By: #### L 500.2500, L100.0100, L501.2300, L501.5200 ####[facility] [address] [place], [address] IG% 0.400 Normal 0.0-0.9 [facility] Comment on above: Result Comment: IG% - Immature Granulocytes (promyelocytes, myelocytes andmetamyelocytes) > 1% indicates that a LEFT SHIFT is Present. Performed By: #### L 500.2500, L100.0100, L501.2300, L501.5200 ####[facility] [address] [place], [address] Lymphocytes/100 WBC (Bld) 5.2 % Low 19-41 [facility] Comment on above: Performed By: #### L 500.2500, L100.0100, L501.2300, L501.5200 ####[facility] [address] [place], [address] MCH (RBC) [Entitic mass] 29.2 pg Normal 27.0-32.0 [facility] Comment on above: Performed By: #### L 500.2500, L100.0100, L501.2300, L501.5200 ####[facility] [address] [place], [address] MCHC (RBC) [Mass/Vol] 32.9 g/dL Normal 32-36 [facility] Comment on above: Performed By: #### L 500.2500, L100.0100, L501.2300, L501.5200 ####[facility] [address] [place], [address] MCV (RBC) [Entitic vol] 88.9 fL Normal 81-99 [facility] Comment on above: Performed By: #### L 500.2500, L100.0100, L501.2300, L501.5200 ####[facility] [address] [place], [address] Monocytes/100 WBC (Bld) 1.3 % Normal 0-10 [facility] Comment on above: Performed By: #### L 500.2500, L100.0100, L501.2300, L501.5200 ####[facility] [address] [place], [address] Neutrophils/100 WBC (Bld) 93.0 % High 47-70 [facility] Comment on above: Performed By: #### L 500.2500, L100.0100, L501.2300, L501.5200 ####[facility] [address] [place], [address] Nucleated RBC (Bld) [#/Vol] 0 10*3/uL Normal 0-5 [facility] Comment on above: Performed By: #### L 500.2500, L100.0100, L501.2300, L501.5200 ####[facility] [address] [place], [address] Platelet mean volume (Bld) [Entitic vol] 12.7 fL High 6.2-12.0 [facility] Comment on above: Performed By: #### L 500.2500, L100.0100, L501.2300, L501.5200 ####[facility] [address] [place], [address] Platelets (Bld) [#/Vol] 133 10*3/uL Low 150-450 [facility] Comment on above: Performed By: #### L 500.2500, L100.0100, L501.2300, L501.5200 ####[facility] [address] [place], [address] RBC (Bld) [#/Vol] 3.97 10*6/uL Low 4.2-5.4 [facility] Comment on above: Performed By: #### L 500.2500, L100.0100, L501.2300, L501.5200 ####[facility] [address] [place], [address] RDW SD 43.7 fl Normal 35.1-43.9 [facility] Comment on above: Performed By: #### L 500.2500, L100.0100, L501.2300, L501.5200 ####[facility] [address] [place], [address] WBC (Bld) [#/Vol] 12.2 10*3/uL High 4.4-11.0 [facility] Comment on above: Performed By: #### L 500.2500, L100.0100, L501.2300, L501.5200 ####[facility] [address] [place], [address] Electrolyte Panelon 05-04-20 25 Chloride [Moles/Vol] 105 mmol/L Normal 98-108 [facility] Comment on above: Performed By: #### L 501.5200, L501.5294, L501.2300 ####[facility] [address] [place], [address] CO2 [Moles/Vol] 16.5 mmol/L Low 21.0-32.0 [facility] Comment on above: Performed By: #### L 501.5200, L501.5294, L501.2300 ####[facility] [address] [place], [address] GAP 15 Normal 5-15 [facility] Comment on above: Performed By: #### L 501.5200, L501.5294, L501.2300 ####[facility] [address] [place], [address] Potassium [Moles/Vol] 4.0 mmol/L Normal 3.3-5.1 [facility] Comment on above: Performed By: #### L 501.5200, L501.5294, L501.2300 ####[facility] [address] [place], [address] Sodium [Moles/Vol] 136 mmol/L Normal 133-145 [facility] Comment on above: Performed By: #### L 501.5200, L501.5294, L501.2300 ####[facility] [address] [place], [address] Magnesiumon 05-04-2025 Magnesium [Mass/Vol] 2.0 mg/dL Normal 1.5-2.2 [facility] Comment on above: Performed By: #### L 500.2500, L501.6901, L501.5200 ####[facility] [address] [place], [address] Magnesium [Mass/Vol] 1.8 mg/dL Normal 1.5-2.2 [facility] Comment on above: Performed By: #### L 500.2500, L100.0100, L501.2300, L501.5200 ####[facility] [address] [place], [address] Magnesium [Mass/Vol] 2.0 mg/dL Normal 1.5-2.2 [facility] Comment on above: Performed By: #### L 501.5200, L501.5294, L501.2300 ####[facility] [address] [place], [address] Phosphoruson 05-04-2025 Phosphate [Mass/Vol] 2.2 mg/dL Low 2.7-4.5 [facility] Comment on above: Performed By: #### L 501.2300, L500.2500 ####[facility] [address] [place], [address] Phosphate [Mass/Vol] 2.0 mg/dL Low 2.7-4.5 [facility] Comment on above: Performed By: #### L 501.2300 ####[facility] [address] [place], [address] Phosphate [Mass/Vol] 1.9 mg/dL Low 2.7-4.5 [facility] Comment on above: Performed By: #### L 500.2500, L100.0100, L501.2300, L501.5200 ####[facility] [address] [place], [address] Phosphate [Mass/Vol] 2.2 mg/dL Low 2.7-4.5 [facility] Comment on above: Performed By: #### L 501.5200, L501.5294, L501.2300 ####[facility] [address] [place], [address] 12 Lead EKGon 05-03-2025 12 Lead EKG Normal [facility] Basic Metabolic Profile (BMP )on 05-03-2025 BUN/CRE 21.6 RATIO High 10-20 [facility] Comment on above: Performed By: #### L 501.6901, L100.0100, L500.2500, L501.5200 ####[facility] [address] [place], [address] Calcium [Mass/Vol] 9.7 mg/dL Normal 7.6-11.0 [facility] Comment on above: Performed By: #### L 501.6901, L100.0100, L500.2500, L501.5200 ####[facility] [address] [place], [address] Chloride [Moles/Vol] 99 mmol/L Normal 98-108 [facility] Comment on above: Performed By: #### L 501.6901, L100.0100, L500.2500, L501.5200 ####[facility] [address] [place], [address] CO2 [Moles/Vol] 12.8 mmol/L Low 21.0-32.0 [facility] Comment on above: Performed By: #### L 501.6901, L100.0100, L500.2500, L501.5200 ####[facility] [address] [place], [address] Creatinine [Mass/Vol] 0.80 mg/dL Normal 0.70-1.20 [facility] Comment on above: Performed By: #### L 501.6901, L100.0100, L500.2500, L501.5200 ####[facility] [address] [place], [address] GAP 22 High 5-15 [facility] Comment on above: Performed By: #### L 501.6901, L100.0100, L500.2500, L501.5200 ####[facility] [address] [place], [address] GFR/1.73 sq M.predicted among non-blacks MDRD (S/P/Bld) [Vol rate/Area] 102 mL/min/{1.73_m2} Normal >60 [facility] Comment on above: Result Comment: mL/m in/1.73m2 CKD-EPI Creatinine Equation (2020) Performed By: #### L 501.6901, L100.0100, L500.2500, L501.5200 ####[facility] [address] [place], [address] Glucose [Mass/Vol] 314 mg/dL High 70-99 [facility] Comment on above: Performed By: #### L 501.6901, L100.0100, L500.2500, L501.5200 ####[facility] [address] [place], [address] Potassium [Moles/Vol] 4.2 mmol/L Normal 3.3-5.1 [facility] Comment on above: Performed By: #### L 501.6901, L100.0100, L500.2500, L501.5200 ####[facility] [address] [place], [address] Sodium [Moles/Vol] 133 mmol/L Normal 133-145 [facility] Comment on above: Performed By: #### L 501.6901, L100.0100, L500.2500, L501.5200 ####[facility] [address] [place], [address] Urea nitrogen [Mass/Vol] 17 mg/dL Normal 4-19 [facility] Comment on above: Performed By: #### L 501.6901, L100.0100, L500.2500, L501.5200 ####[facility] [address] [place], [address] Bedside Glucoseon 05-03-2025 FINGERSTICK GLU 188 mg/dL High 74-106 [facility] Comment on above: Result Comment: EDGAR GEMENT OF PATIENT CARE PER NURSING PROTOCOL Performed By: #### L 501.080 ####[facility] [address] [place], [address] FINGERSTICK GLU 242 mg/dL High 74-106 [facility] Comment on above: Result Comment: EDGAR GEMENT OF PATIENT CARE PER NURSING PROTOCOL Performed By: #### L 501.080 ####[facility] [address] [place], [address] FINGERSTICK GLU 303 mg/dL High 74-106 [facility] Comment on above: Result Comment: EDGAR GEMENT OF PATIENT CARE PER NURSING PROTOCOL Performed By: #### L 501.080 ####[facility] [address] [place], [address] FINGERSTICK GLU 287 mg/dL High 74-106 [facility] Comment on above: Result Comment: EDGAR GEMENT OF PATIENT CARE PER NURSING PROTOCOL Performed By: #### L 501.080 ####[facility] [address] [place], [address] Beta-Hydroxbytyrateon 2024 BETA-HYDROXYBUT 3.2 mmol/L High 0.0-0.3 [facility] Comment on above: Performed By: #### L 501.6901, L100.0100, L500.2500, L501.5200 ####[facility] [address] [place], [address] CBC W/Diff, Automatedon Absolute Lymph 1.71 X10 3/uL Normal 0.83-4.51 [facility] Comment on above: Performed By: #### L 501.6901, L100.0100, L500.2500, L501.5200 ####[facility] [address] [place], [address] Absolute Neut 14.0 X10 3/uL High 2.0-7.7 [facility] Comment on above: Performed By: #### L 501.6901, L100.0100, L500.2500, L501.5200 ####[facility] [address] [place], [address] Basophils/100 WBC (Bld) 0.4 % Normal 0-1 [facility] Comment on above: Performed By: #### L 501.6901, L100.0100, L500.2500, L501.5200 ####[facility] [address] [place], [address] Eosinophils/100 WBC (Bld) 0.0 % Normal 0-5 [facility] Comment on above: Performed By: #### L 501.6901, L100.0100, L500.2500, L501.5200 ####[facility] [address] [place], [address] Erythrocyte distribution width (RBC) [Ratio] 13.3 % Normal 11.6-14.6 [facility] Comment on above: Performed By: #### L 501.6901, L100.0100, L500.2500, L501.5200 ####[facility] [address] [place], [address] Hematocrit (Bld) [Volume fraction] 42.6 % Normal 37-47 [facility] Comment on above: Performed By: #### L 501.6901, L100.0100, L500.2500, L501.5200 ####[facility] [address] [place], [address] Hemoglobin (Bld) [Mass/Vol] 14.5 g/dL Normal 12.0-15.0 [facility] Comment on above: Performed By: #### L 501.6901, L100.0100, L500.2500, L501.5200 ####[facility] [address] [place], [address] IG% 0.500 Normal 0.0-0.9 [facility] Comment on above: Result Comment: IG% - Immature Granulocytes (promyelocytes, myelocytes andmetamyelocytes) > 1% indicates that a LEFT SHIFT is Present. Performed By: #### L 501.6901, L100.0100, L500.2500, L501.5200 ####[facility] [address] [place], [address] Lymphocytes/100 WBC (Bld) 10.4 % Low 19-41 [facility] Comment on above: Performed By: #### L 501.6901, L100.0100, L500.2500, L501.5200 ####[facility] [address] [place], [address] MCH (RBC) [Entitic mass] 29.6 pg Normal 27.0-32.0 [facility] Comment on above: Performed By: #### L 501.6901, L100.0100, L500.2500, L501.5200 ####[facility] [address] [place], [address] MCHC (RBC) [Mass/Vol] 34.0 g/dL Normal 32-36 [facility] Comment on above: Performed By: #### L 501.6901, L100.0100, L500.2500, L501.5200 ####[facility] [address] [place], [address] MCV (RBC) [Entitic vol] 86.9 fL Normal 81-99 [facility] Comment on above: Performed By: #### L 501.6901, L100.0100, L500.2500, L501.5200 ####[facility] [address] [place], [address] Monocytes/100 WBC (Bld) 3.0 % Normal 0-10 [facility] Comment on above: Performed By: #### L 501.6901, L100.0100, L500.2500, L501.5200 ####[facility] [address] [place], [address] Neutrophils/100 WBC (Bld) 85.7 % High 47-70 [facility] Comment on above: Performed By: #### L 501.6901, L100.0100, L500.2500, L501.5200 ####[facility] [address] [place], [address] Nucleated RBC (Bld) [#/Vol] 0 10*3/uL Normal 0-5 [facility] Comment on above: Performed By: #### L 501.6901, L100.0100, L500.2500, L501.5200 ####[facility] [address] [place], [address] Platelet mean volume (Bld) [Entitic vol] 12.1 fL High 6.2-12.0 [facility] Comment on above: Performed By: #### L 501.6901, L100.0100, L500.2500, L501.5200 ####[facility] [address] [place], [address] Platelets (Bld) [#/Vol] 189 10*3/uL Normal 150-450 [facility] Comment on above: Performed By: #### L 501.6901, L100.0100, L500.2500, L501.5200 ####[facility] [address] [place], [address] RBC (Bld) [#/Vol] 4.90 10*6/uL Normal 4.2-5.4 [facility] Comment on above: Performed By: #### L 501.6901, L100.0100, L500.2500, L501.5200 ####[facility] [address] [place], [address] RDW SD 42.6 fl Normal 35.1-43.9 [facility] Comment on above: Performed By: #### L 501.6901, L100.0100, L500.2500, L501.5200 ####[facility] [address] [place], [address] WBC (Bld) [#/Vol] 16.4 10*3/uL High 4.4-11.0 [facility] Comment on above: Performed By: #### L 501.6901, L100.0100, L500.2500, L501.5200 ####[facility] [address] [place], [address] Emergency Department Summary on 05-03-2025 Emergency Department Summary Normal [facility] H AND P Exam - Hospitaliston 05-03-2025 H&P Exam - Hospitalist Normal [facility] Magnesiumon 05-03-2025 Magnesium [Mass/Vol] 2.1 mg/dL Normal 1.5-2.2 [facility] Comment on above: Performed By: #### L 501.6901, L100.0100, L500.2500, L501.5200 ####[facility] [address] [place], [address] Urinalysis, Completeon 05-03 BACTERIA RARE Normal None Seen [facility] Comment on above: Order Comment: COLLE CTOR TO SPECIFY Performed By: #### L 400.0001 ####[facility] [address] [place], [address] EPI,SQUAMOUS 5-10 SEEN Normal 5-10 [facility] Comment on above: Order Comment: COLLE CTOR TO SPECIFY Performed By: #### L 400.0001 ####[facility] [address] [place], [address] Mucus Ql (Urine sed) 0 SEEN Normal [facility] Comment on above: Order Comment: COLLE CTOR TO SPECIFY Performed By: #### L 400.0001 ####[facility] [address] [place], [address] RBC 0 SEEN Normal 0-5 [facility] Comment on above: Order Comment: COLLE CTOR TO SPECIFY Performed By: #### L 400.0001 ####[facility] [address] [place], [address] WBC 0 SEEN Normal 0-5 [facility] Comment on above: Order Comment: COLLE CTOR TO SPECIFY Performed By: #### L 400.0001 ####[facility] [address] [place], [address] CBC W/Diff, Automatedon PATH REV Reviewed Normal [facility] Comment on above: Result Comment: SEE REPORT IN PATIENT'S EMR AMENDED REPORT 03/31/25 1600 PATH REV previously reported as: May foll Performed By: #### L 100.0100, L500.4050, L501.2450, L700.6800 ####[facility] [address] [place], [address] Gastroenterology Visit Repor ton 03-31-2025 Gastroenterology Visit Report Normal [facility] Basic Metabolic Profile (BMP )on 03-19-2025 CO2 [Moles/Vol] 9.9 mmol/L Invalid Interpretation Code 21.0-32.0 [facility] Comment on above: Result Comment: Crit ical Result(s) Called at: 0737 TO ABRINK by:KCLAPPER??Results read back by same.Critical Result(s) Called at: 0737 TO ABRINK by:KCLAPPER??Results read back by same.Critical Result(s) Called at: by:??Results read back bysame. AMENDED REPORT 03/19/25799 CO2 previously reported as: 9.9 *L mmol/LCritical Result(s) Called at: 0737 TO ABRINK by:KCLAPPER??Results read back by same. Performed By: #### L 500.2500, L100.0100 ####[facility] [address] [place], [address] Bedside Glucoseon 03-19-2025 FINGERSTICK GLU 256 mg/dL High 74-106 [facility] Comment on above: Result Comment: EDGAR CURRYENT OF PATIENT CARE PER NURSING PROTOCOL Performed By: #### L 501.080 ####[facility] [address] [place], [address] CBC W/Diff, Automatedon 02-26 Absolute Lymph 1.18 X10 3/uL Normal 0.83-4.51 [facility] Comment on above: Performed By: #### L 500.2500, L100.0100 ####[facility] [address] [place], [address] Absolute Neut 15.3 X10 3/uL High 2.0-7.7 [facility] Comment on above: Performed By: #### L 500.2500, L100.0100 ####[facility] [address] [place], [address] Basophils/100 WBC (Bld) 0.3 % Normal 0-1 [facility] Comment on above: Performed By: #### L 500.2500, L100.0100 ####[facility] [address] [place], [address] Eosinophils/100 WBC (Bld) 0.0 % Normal 0-5 [facility] Comment on above: Performed By: #### L 500.2500, L100.0100 ####[facility] [address] [place], [address] Erythrocyte distribution width (RBC) [Ratio] 13.8 % Normal 11.6-14.6 [facility] Comment on above: Performed By: #### L 500.2500, L100.0100 ####[facility] [address] [place], [address] Hematocrit (Bld) [Volume fraction] 40.2 % Normal 37-47 [facility] Comment on above: Performed By: #### L 500.2500, L100.0100 ####[facility] [address] [place], [address] Hemoglobin (Bld) [Mass/Vol] 13.5 g/dL Normal 12.0-15.0 [facility] Comment on above: Performed By: #### L 500.2500, L100.0100 ####[facility] [address] [place], [address] IG% 1.100 High 0.0-0.9 [facility] Comment on above: Result Comment: IG% - Immature Granulocytes (promyelocytes, myelocytes andmetamyelocytes) > 1% indicates that a LEFT SHIFT is Present. Performed By: #### L 500.2500, L100.0100 ####[facility] [address] [place], [address] Lymphocytes/100 WBC (Bld) 6.8 % Low 19-41 [facility] Comment on above: Performed By: #### L 500.2500, L100.0100 ####[facility] [address] [place], [address] MCH (RBC) [Entitic mass] 29.3 pg Normal 27.0-32.0 [facility] Comment on above: Performed By: #### L 500.2500, L100.0100 ####[facility] [address] [place], [address] MCHC (RBC) [Mass/Vol] 33.6 g/dL Normal 32-36 [facility] Comment on above: Performed By: #### L 500.2500, L100.0100 ####[facility] [address] [place], [address] MCV (RBC) [Entitic vol] 87.4 fL Normal 81-99 [facility] Comment on above: Performed By: #### L 500.2500, L100.0100 ####[facility] [address] [place], [address] Monocytes/100 WBC (Bld) 3.2 % Normal 0-10 [facility] Comment on above: Performed By: #### L 500.2500, L100.0100 ####[facility] [address] [place], [address] Neutrophils/100 WBC (Bld) 88.6 % High 47-70 [facility] Comment on above: Performed By: #### L 500.2500, L100.0100 ####[facility] [address] [place], [address] Nucleated RBC (Bld) [#/Vol] 0 10*3/uL Normal 0-5 [facility] Comment on above: Performed By: #### L 500.2500, L100.0100 ####[facility] [address] [place], [address] Platelet mean volume (Bld) [Entitic vol] 11.7 fL Normal 6.2-12.0 [facility] Comment on above: Performed By: #### L 500.2500, L100.0100 ####[facility] [address] [place], [address] Platelets (Bld) [#/Vol] 165 10*3/uL Normal 150-450 [facility] Comment on above: Performed By: #### L 500.2500, L100.0100 ####[facility] [address] [place], [address] RBC (Bld) [#/Vol] 4.60 10*6/uL Normal 4.2-5.4 [facility] Comment on above: Performed By: #### L 500.2500, L100.0100 ####[facility] [address] [place], [address] RDW SD 43.9 fl Normal 35.1-43.9 [facility] Comment on above: Performed By: #### L 500.2500, L100.0100 ####[facility] [address] [place], [address] WBC (Bld) [#/Vol] 17.3 10*3/uL High 4.4-11.0 [facility] Comment on above: Performed By: #### L 500.2500, L100.0100 ####[facility] [address] [place], [address] Discharge Instructionon 02-26 Discharge Instruction Normal [facility] Magnesiumon 03-19-2025 Magnesium [Mass/Vol] 1.8 mg/dL Normal 1.5-2.2 [facility] Comment on above: Performed By: #### L 501.2300, L501.5200 ####[facility] [address] [place], [address] Phosphoruson 03-19-2025 Phosphate [Mass/Vol] 1.7 mg/dL Low 2.7-4.5 [facility] Comment on above: Performed By: #### L 501.2300, L501.5200 ####[facility] [address] [place], [address] Basic Metabolic Profile (BMP )on 03-18-2025 BUN/CRE 8.4 RATIO Low 10-20 [facility] Comment on above: Performed By: #### L 500.2500 ####[facility] [address] [place], [address] Calcium [Mass/Vol] 8.6 mg/dL Normal 7.6-11.0 [facility] Comment on above: Performed By: #### L 500.2500 ####[facility] [address] [place], [address] Chloride [Moles/Vol] 109 mmol/L High 98-108 [facility] Comment on above: Performed By: #### L 500.2500 ####[facility] [address] [place], [address] CO2 [Moles/Vol] 16.1 mmol/L Low 21.0-32.0 [facility] Comment on above: Performed By: #### L 500.2500 ####[facility] [address] [place], [address] Creatinine [Mass/Vol] 0.75 mg/dL Normal 0.70-1.20 [facility] Comment on above: Performed By: #### L 500.2500 ####[facility] [address] [place], [address] ECRCL 114.62 ml/min Normal 50-250 [facility] Comment on above: Performed By: #### L 500.2500 ####[facility] [address] [place], [address] GAP 12 Normal 5-15 [facility] Comment on above: Performed By: #### L 500.2500 ####[facility] [address] [place], [address] GFR/1.73 sq M.predicted among non-blacks MDRD (S/P/Bld) [Vol rate/Area] 110 mL/min/{1.73_m2} Normal >60 [facility] Comment on above: Result Comment: mL/m in/1.73m2 CKD-EPI Creatinine Equation (2020) Performed By: #### L 500.2500 ####[facility] [address] [place], [address] Glucose [Mass/Vol] 142 mg/dL High 70-99 [facility] Comment on above: Performed By: #### L 500.2500 ####[facility] [address] [place], [address] Potassium [Moles/Vol] 3.8 mmol/L Normal 3.3-5.1 [facility] Comment on above: Result Comment: Hemo lysis present, Results??could be affected.?? Performed By: #### L 500.2500 ####[facility] [address] [place], [address] Sodium [Moles/Vol] 138 mmol/L Normal 133-145 [facility] Comment on above: Performed By: #### L 500.2500 ####[facility] [address] [place], [address] Urea nitrogen [Mass/Vol] 6 mg/dL Normal 4-19 [facility] Comment on above: Performed By: #### L 500.2500 ####[facility] [address] [place], [address] BUN/CRE 9.9 RATIO Low 10-20 [facility] Comment on above: Performed By: #### L 500.2500 ####[facility] [address] [place], [address] Calcium [Mass/Vol] 8.4 mg/dL Normal 7.6-11.0 [facility] Comment on above: Performed By: #### L 500.2500 ####[facility] [address] [place], [address] Chloride [Moles/Vol] 110 mmol/L High 98-108 [facility] Comment on above: Performed By: #### L 500.2500 ####[facility] [address] [place], [address] CO2 [Moles/Vol] 14.1 mmol/L Low 21.0-32.0 [facility] Comment on above: Performed By: #### L 500.2500 ####[facility] [address] [place], [address] Creatinine [Mass/Vol] 0.74 mg/dL Normal 0.70-1.20 [facility] Comment on above: Performed By: #### L 500.2500 ####[facility] [address] [place], [address] ECRCL 116.17 ml/min Normal 50-250 [facility] Comment on above: Performed By: #### L 500.2500 ####[facility] [address] [place], [address] GAP 14 Normal 5-15 [facility] Comment on above: Performed By: #### L 500.2500 ####[facility] [address] [place], [address] GFR/1.73 sq M.predicted among non-blacks MDRD (S/P/Bld) [Vol rate/Area] 112 mL/min/{1.73_m2} Normal >60 [facility] Comment on above: Result Comment: mL/m in/1.73m2 CKD-EPI Creatinine Equation (2020) Performed By: #### L 500.2500 ####[facility] [address] [place], [address] Glucose [Mass/Vol] 187 mg/dL High 70-99 [facility] Comment on above: Performed By: #### L 500.2500 ####[facility] [address] [place], [address] Potassium [Moles/Vol] 3.9 mmol/L Normal 3.3-5.1 [facility] Comment on above: Performed By: #### L 500.2500 ####[facility] [address] [place], [address] Sodium [Moles/Vol] 138 mmol/L Normal 133-145 [facility] Comment on above: Performed By: #### L 500.2500 ####[facility] [address] [place], [address] Urea nitrogen [Mass/Vol] 7 mg/dL Normal 4-19 [facility] Comment on above: Performed By: #### L 500.2500 ####[facility] [address] [place], [address] BUN/CRE 10.8 RATIO Normal 10-20 [facility] Comment on above: Performed By: #### L 500.2500 ####[facility] [address] [place], [address] Calcium [Mass/Vol] 8.3 mg/dL Normal 7.6-11.0 [facility] Comment on above: Performed By: #### L 500.2500 ####[facility] [address] [place], [address] Chloride [Moles/Vol] 108 mmol/L Normal 98-108 [facility] Comment on above: Performed By: #### L 500.2500 ####[facility] [address] [place], [address] CO2 [Moles/Vol] 10.5 mmol/L Low 21.0-32.0 [facility] Comment on above: Performed By: #### L 500.2500 ####[facility] [address] [place], [address] Creatinine [Mass/Vol] 0.83 mg/dL Normal 0.70-1.20 [facility] Comment on above: Performed By: #### L 500.2500 ####[facility] [address] [place], [address] ECRCL 103.58 ml/min Normal 50-250 [facility] Comment on above: Performed By: #### L 500.2500 ####[facility] [address] [place], [address] GAP 17 High 5-15 [facility] Comment on above: Performed By: #### L 500.2500 ####[facility] [address] [place], [address] GFR/1.73 sq M.predicted among non-blacks MDRD (S/P/Bld) [Vol rate/Area] 98 mL/min/{1.73_m2} Normal >60 [facility] Comment on above: Result Comment: mL/m in/1.73m2 CKD-EPI Creatinine Equation (2020) Performed By: #### L 500.2500 ####[facility] [address] [place], [address] Glucose [Mass/Vol] 219 mg/dL High 70-99 [facility] Comment on above: Performed By: #### L 500.2500 ####[facility] [address] [place], [address] Potassium [Moles/Vol] 4.4 mmol/L Normal 3.3-5.1 [facility] Comment on above: Result Comment: Hemo lysis present, Results??could be affected.?? Performed By: #### L 500.2500 ####[facility] [address] [place], [address] Sodium [Moles/Vol] 136 mmol/L Normal 133-145 [facility] Comment on above: Performed By: #### L 500.2500 ####[facility] [address] [place], [address] Urea nitrogen [Mass/Vol] 9 mg/dL Normal 4-19 [facility] Comment on above: Performed By: #### L 500.2500 ####[facility] [address] [place], [address] BUN/CRE 11.7 RATIO Normal 10-20 [facility] Comment on above: Performed By: #### L 500.2500 ####[facility] [address] [place], [address] Calcium [Mass/Vol] 8.3 mg/dL Normal 7.6-11.0 [facility] Comment on above: Performed By: #### L 500.2500 ####[facility] [address] [place], [address] Chloride [Moles/Vol] 106 mmol/L Normal 98-108 [facility] Comment on above: Performed By: #### L 500.2500 ####[facility] [address] [place], [address] CO2 [Moles/Vol] 7.8 mmol/L Invalid Interpretation Code 21.0-32.0 [facility] Comment on above: Result Comment: Crit ical Result(s) Called at: 0446 by:??JULIÁN AQUINO. Results read back by same. Performed By: #### L 500.2500 ####[facility] [address] [place], [address] Creatinine [Mass/Vol] 0.94 mg/dL Normal 0.70-1.20 [facility] Comment on above: Performed By: #### L 500.2500 ####[facility] [address] [place], [address] ECRCL 91.46 ml/min Normal 50-250 [facility] Comment on above: Performed By: #### L 500.2500 ####[facility] [address] [place], [address] GAP 23 High 5-15 [facility] Comment on above: Performed By: #### L 500.2500 ####[facility] [address] [place], [address] GFR/1.73 sq M.predicted among non-blacks MDRD (S/P/Bld) [Vol rate/Area] 83 mL/min/{1.73_m2} Normal >60 [facility] Comment on above: Result Comment: mL/m in/1.73m2 CKD-EPI Creatinine Equation (2020) Performed By: #### L 500.2500 ####[facility] [address] [place], [address] Glucose [Mass/Vol] 238 mg/dL High 70-99 [facility] Comment on above: Performed By: #### L 500.2500 ####[facility] [address] [place], [address] Potassium [Moles/Vol] 4.7 mmol/L Normal 3.3-5.1 [facility] Comment on above: Result Comment: Hemo lysis present, Results??could be affected.?? Performed By: #### L 500.2500 ####[facility] [address] [place], [address] Sodium [Moles/Vol] 136 mmol/L Normal 133-145 [facility] Comment on above: Performed By: #### L 500.2500 ####[facility] [address] [place], [address] Urea nitrogen [Mass/Vol] 11 mg/dL Normal 4-19 [facility] Comment on above: Performed By: #### L 500.2500 ####[facility] [address] [place], [address] BUN/CRE 13.0 RATIO Normal 10-20 [facility] Comment on above: Performed By: #### L 500.2500 ####[facility] [address] [place], [address] Calcium [Mass/Vol] 8.0 mg/dL Normal 7.6-11.0 [facility] Comment on above: Performed By: #### L 500.2500 ####[facility] [address] [place], [address] Chloride [Moles/Vol] 102 mmol/L Normal 98-108 [facility] Comment on above: Performed By: #### L 500.2500 ####[facility] [address] [place], [address] CO2 [Moles/Vol] 6.1 mmol/L Invalid Interpretation Code 21.0-32.0 [facility] Comment on above: Result Comment: Crit ical Result(s) Called at: 0044 by:??JULIÁN AQUINO. Results read back by same. Performed By: #### L 500.2500 ####[facility] [address] [place], [address] Creatinine [Mass/Vol] 1.06 mg/dL Normal 0.70-1.20 [facility] Comment on above: Performed By: #### L 500.2500 ####[facility] [address] [place], [address] ECRCL 81.10 ml/min Normal 50-250 [facility] Comment on above: Performed By: #### L 500.2500 ####[facility] [address] [place], [address] GAP 26 High 5-15 [facility] Comment on above: Performed By: #### L 500.2500 ####[facility] [address] [place], [address] GFR/1.73 sq M.predicted among non-blacks MDRD (S/P/Bld) [Vol rate/Area] 72 mL/min/{1.73_m2} Normal >60 [facility] Comment on above: Result Comment: mL/m in/1.73m2 CKD-EPI Creatinine Equation (2020) Performed By: #### L 500.2500 ####[facility] [address] [place], [address] Glucose [Mass/Vol] 265 mg/dL High 70-99 [facility] Comment on above: Performed By: #### L 500.2500 ####[facility] [address] [place], [address] Potassium [Moles/Vol] 4.6 mmol/L Normal 3.3-5.1 [facility] Comment on above: Result Comment: Hemo lysis present, Results??could be affected.?? Performed By: #### L 500.2500 ####[facility] [address] [place], [address] Sodium [Moles/Vol] 134 mmol/L Normal 133-145 [facility] Comment on above: Performed By: #### L 500.2500 ####[facility] [address] [place], [address] Urea nitrogen [Mass/Vol] 14 mg/dL Normal 4-19 [facility] Comment on above: Performed By: #### L 500.2500 ####[facility] [address] [place], [address] Bedside Glucoseon 03-18-2025 FINGERSTICK GLU 263 mg/dL High 74-106 [facility] Comment on above: Result Comment: EDGAR HUNG OF PATIENT CARE PER NURSING PROTOCOL Performed By: #### L 501.080 ####[facility] [address] [place], [address] FINGERSTICK GLU 134 mg/dL High 74-106 [facility] Comment on above: Result Comment: EDGAR GEMENT OF PATIENT CARE PER NURSING PROTOCOL Performed By: #### L 501.080 ####[facility] [address] [place], [address] FINGERSTICK GLU 139 mg/dL High 74-106 [facility] Comment on above: Result Comment: EDGAR GEMENT OF PATIENT CARE PER NURSING PROTOCOL Performed By: #### L 501.080 ####[facility] [address] [place], [address] FINGERSTICK GLU 156 mg/dL High -106 [facility] Comment on above: Result Comment: EDGAR GEMENT OF PATIENT CARE PER NURSING PROTOCOL Performed By: #### L 501.080 ####[facility] [address] [place], [address] FINGERSTICK GLU 177 mg/dL High 74-106 [facility] Comment on above: Result Comment: EDGAR GEMENT OF PATIENT CARE PER NURSING PROTOCOL Performed By: #### L 501.080 ####[facility] [address] [place], [address] FINGERSTICK GLU 167 mg/dL High 74-106 [facility] Comment on above: Result Comment: EDGAR GEMENT OF PATIENT CARE PER NURSING PROTOCOL Performed By: #### L 501.080 ####[facility] [address] [place], [address] FINGERSTICK GLU 171 mg/dL High -106 [facility] Comment on above: Result Comment: EDGAR GEMENT OF PATIENT CARE PER NURSING PROTOCOL Performed By: #### L 501.080 ####[facility] [address] [place], [address] FINGERSTICK GLU 176 mg/dL High 74-106 [facility] Comment on above: Result Comment: EDGAR GEMENT OF PATIENT CARE PER NURSING PROTOCOL Performed By: #### L 501.080 ####[facility] [address] [place], [address] FINGERSTICK GLU 192 mg/dL High [address] [place] [address] Comment on above: Result Comment: EDGAR GEMENT OF PATIENT CARE PER NURSING PROTOCOL Performed By: #### L 501.080 ####[facility] [address] [place], [address] FINGERSTICK GLU 200 mg/dL High [facility]106 [facility] Comment on above: Result Comment: EDGAR GEMENT OF PATIENT CARE PER NURSING PROTOCOL Performed By: #### L 501.080 ####[facility] [address] [place], [address] FINGERSTICK GLU 204 mg/dL High [address] [place] [address] Comment on above: Result Comment: EDGAR GEMENT OF PATIENT CARE PER NURSING PROTOCOL Performed By: #### L 501.080 ####[facility] [address] [place], [address] FINGERSTICK GLU 229 mg/dL High [facility]106 [facility] Comment on above: Result Comment: EDGAR GEMENT OF PATIENT CARE PER NURSING PROTOCOL Performed By: #### L 501.080 ####[facility] [address] [place], [address] FINGERSTICK GLU 218 mg/dL High [address] [place] [address] Comment on above: Result Comment: EDGAR GEMENT OF PATIENT CARE PER NURSING PROTOCOL Performed By: #### L 501.080 ####[facility] [address] [place], [address] FINGERSTICK GLU 241 mg/dL High [address] [place] [address] Comment on above: Result Comment: EDGAR GEMENT OF PATIENT CARE PER NURSING PROTOCOL Performed By: #### L 501.080 ####[facility] [address] [place], [address] FINGERSTICK GLU 203 mg/dL High 74-106 [facility] Comment on above: Result Comment: EDGAR GEMENT OF PATIENT CARE PER NURSING PROTOCOL Performed By: #### L 501.080 ####[facility] [address] [place], [address] FINGERSTICK GLU 182 mg/dL High [facility]106 [facility] Comment on above: Result Comment: EDGAR GEMENT OF PATIENT CARE PER NURSING PROTOCOL Performed By: #### L 501.080 ####[facility] [address] [place], [address] FINGERSTICK GLU 199 mg/dL High -106 [facility] Comment on above: Result Comment: EDGAR GEMENT OF PATIENT CARE PER NURSING PROTOCOL Performed By: #### L 501.080 ####[facility] [address] [place], [address] FINGERSTICK GLU 201 mg/dL High -106 [facility] Comment on above: Result Comment: EDGAR GEMENT OF PATIENT CARE PER NURSING PROTOCOL Performed By: #### L 501.080 ####[facility] [address] [place], [address] Consultation - Intensiviston 03-18-2025 Consultation - Intellectual Property Legal Assistant Normal [facility] Bedside Glucoseon 03-17-2025 FINGERSTICK GLU 272 mg/dL High 74-106 [facility] Comment on above: Result Comment: EDGAR GEMENT OF PATIENT CARE PER NURSING PROTOCOL Performed By: #### L 501.080 ####[facility] [facility] [address] [place], [address] Beta-Hydroxbytyrateon 2024 BETA-HYDROXYBUT 9.3 mmol/L High 0.0-0.3 [facility] Comment on above: Performed By: #### L 501.6901 ####[facility] [address] [place], [address] Chest 1 View (Portable)on Chest 1 View (Portable) Normal [facility] Comprehensive Metabolic Prof ilon 03-17-2025 Albumin [Mass/Vol] 5.0 g/dL Normal 3.5-5.0 [facility] Comment on above: Performed By: #### L 100.0100, L500.4050, L501.2450, L700.6800 ####[facility] [address] [place], [address] Albumin/Globulin [Mass ratio] 1.9 {ratio} Normal 0.9-2.4 [facility] Comment on above: Performed By: #### L 100.0100, L500.4050, L501.2450, L700.6800 ####[facility] [address] [place], [address] ALK PHOS 123 U/L High 35-104 [facility] Comment on above: Performed By: #### L 100.0100, L500.4050, L501.2450, L700.6800 ####[facility] [address] [place], [address] ALT [Catalytic activity/Vol] 18 U/L Normal <=34 [facility] Comment on above: Performed By: #### L 100.0100, L500.4050, L501.2450, L700.6800 ####[facility] [address] [place], [address] AST [Catalytic activity/Vol] 18 U/L Normal <=31 [facility] Comment on above: Performed By: #### L 100.0100, L500.4050, L501.2450, L700.6800 ####[facility] [address] [place], [address] Bilirubin [Mass/Vol] 0.74 mg/dL Normal 0.00-1.30 [facility] Comment on above: Performed By: #### L 100.0100, L500.4050, L501.2450, L700.6800 ####[facility] [address] [place], [address] BUN/CRE 14.1 RATIO Normal 10-20 [facility] Comment on above: Performed By: #### L 100.0100, L500.4050, L501.2450, L700.6800 ####[facility] [address] [place], [address] Calcium [Mass/Vol] 9.7 mg/dL Normal 7.6-11.0 [facility] Comment on above: Performed By: #### L 100.0100, L500.4050, L501.2450, L700.6800 ####[facility] [address] [place], [address] Chloride [Moles/Vol] 84 mmol/L Low 98-108 [facility] Comment on above: Performed By: #### L 100.0100, L500.4050, L501.2450, L700.6800 ####[facility] [address] [place], [address] CO2 [Moles/Vol] 6.0 mmol/L Invalid Interpretation Code 21.0-32.0 [facility] Comment on above: Result Comment: Crit ical Result(s) Called at: 2137 by:??JULIÁN CHANDLER. Results read back by same. Performed By: #### L 100.0100, L500.4050, L501.2450, L700.6800 ####[facility] [address] [place], [address] Creatinine [Mass/Vol] 1.18 mg/dL Normal 0.70-1.20 [facility] Comment on above: Performed By: #### L 100.0100, L500.4050, L501.2450, L700.6800 ####[facility] [address] [place], [address] ECRCL 72.85 ml/min Normal 50-250 [facility] Comment on above: Performed By: #### L 100.0100, L500.4050, L501.2450, L700.6800 ####[facility] [address] [place], [address] GAP 37 High 5-15 [facility] Comment on above: Performed By: #### L 100.0100, L500.4050, L501.2450, L700.6800 ####[facility] [address] [place], [address] GFR/1.73 sq M.predicted among non-blacks MDRD (S/P/Bld) [Vol rate/Area] 64 mL/min/{1.73_m2} Normal >60 [facility] Comment on above: Result Comment: mL/m in/1.73m2 CKD-EPI Creatinine Equation (2020) Performed By: #### L 100.0100, L500.4050, L501.2450, L700.6800 ####[facility] [address] [place], [address] Globulin (S) [Mass/Vol] 2.7 g/dL Normal 2.2-4.2 [facility] Comment on above: Performed By: #### L 100.0100, L500.4050, L501.2450, L700.6800 ####[facility] [address] [place], [address] Glucose [Mass/Vol] 561 mg/dL Invalid Interpretation Code 70-99 [facility] Comment on above: Result Comment: Crit ical Result(s) Called at: by:??Results read back bysame.Critical Result(s) Called at: 2136 by:??JULIÁN CHANDLER. Results read back by same. Performed By: #### L 100.0100, L500.4050, L501.2450, L700.6800 ####[facility] [address] [place], [address] Potassium [Moles/Vol] 5.4 mmol/L High 3.3-5.1 [facility] Comment on above: Performed By: #### L 100.0100, L500.4050, L501.2450, L700.6800 ####[facility] [address] [place], [address] Sodium [Moles/Vol] 128 mmol/L Low 133-145 [facility] Comment on above: Performed By: #### L 100.0100, L500.4050, L501.2450, L700.6800 ####[facility] [address] [place], [address] T PROT 7.6 g/dL Normal 5.9-8.4 [facility] Comment on above: Performed By: #### L 100.0100, L500.4050, L501.2450, L700.6800 ####[facility] [address] [place], [address] Urea nitrogen [Mass/Vol] 17 mg/dL Normal 4-19 [facility] Comment on above: Performed By: #### L 100.0100, L500.4050, L501.2450, L700.6800 ####[facility] [address] [place], [address] Emergency Department Summary on 03-17-2025 Emergency Department Summary Normal [facility] Lipaseon 03-17-2025 Lipase [Catalytic activity/Vol] 10 U/L Low 13-75 [facility] Comment on above: Result Comment: Sulma schmitz note:LIPASE revised reference range effective 22.New Lipase methodology. Expected to produce lower valuesthan the previous assay method.NEW Reference Range: 13 - 75 U/L Performed By: #### L 100.0100, L500.4050, L501.2450, L700.6800 ####[facility] [address] [place], [address] ,Serum,hCG Quali.on 03-17-2025 HCG, SERUM QUAL Negative [facility] Comment on above: Performed By: #### L 100.0100, L500.4050, L501.2450, L700.6800 ####[facility] [address] [place], [address] Venous Blood Gason Blood Gas Type ISABELLE [facility] Comment on above: Performed By: #### L 9000.0810 ####[facility] [address] [place], [address] CO2 [Moles/Vol] 7 mmol/L Low 23-33 [facility] Comment on above: Performed By: #### L 9000.0810 ####[facility] [address] [place], [address] HCO3 (Bld) [Moles/Vol] 6 mmol/L Low 22-26 [facility] Comment on above: Performed By: #### L 9000.0810 ####[facility] [address] [place], [address] O2 Delivery Dev Room Air [facility] Comment on above: Performed By: #### L 9000.0810 ####[facility] [address] [place], [address] Read Back By Yes [facility] Comment on above: Performed By: #### L 9000.0810 ####[facility] [address] [place], [address] Results To Garces [facility] Comment on above: Performed By: #### L 9000.0810 ####[facility] [address] [place], [address] SITE Not entered Normal [facility] Comment on above: Performed By: #### L 9000.0810 ####[facility] [address] [place], [address] Time Given 20:45:58 Normal [facility] Comment on above: Performed By: #### L 9000.0810 ####[facility] [address] [place], [address] VBG BE -23 mmol/L Low -1.0-3.5 [facility] Comment on above: Performed By: #### L 9000.0810 ####[facility] [address] [place], [address] VBG pCO2 17.3 mmHg Invalid Interpretation Code 41-51 [facility] Comment on above: Performed By: #### L 9000.0810 ####[facility] [address] [place], [address] VBG pH 7.15 Invalid Interpretation Code 7.32-7.42 [facility] Comment on above: Performed By: #### L 9000.0810 ####[facility] [address] [place], [address] VBG PO2 55 mmHg High 25-40 [facility] Comment on above: Performed By: #### L 9000.0810 ####[facility] [address] [place], [address] VBG SO2 80 High 50-70 [facility] Comment on above: Performed By: #### L 9000.0810 ####[facility] [address] [place], [address] Bedside Glucoseon 03-08-2025 FINGERSTICK GLU 252 mg/dL High 74-106 [facility] Comment on above: Result Comment: EDGAR GEMENT OF PATIENT CARE PER NURSING PROTOCOL Performed By: #### L 501.080 ####[facility] [address] [place], [address] FINGERSTICK GLU 272 mg/dL High 74-106 [facility] Comment on above: Result Comment: EDGAR GEMENT OF PATIENT CARE PER NURSING PROTOCOL Performed By: #### L 501.080 ####[facility] [address] [place], [address] Basic Metabolic Profile (BMP )on 03-07-2025 BUN Normal 4-19 [facility] Comment on above: Result Comment: Canc elled via OM: MD Ordered Performed By: #### L 500.2500 ####[facility] [address] [place], [address] BUN/CRE Normal 10-20 [facility] Comment on above: Result Comment: Canc elled via OM: MD Ordered Performed By: #### L 500.2500 ####[facility] [address] [place], [address] Calcium Normal 7.6-11.0 [facility] Comment on above: Result Comment: Canc elled via OM: MD Ordered Performed By: #### L 500.2500 ####[facility] [address] [place], [address] CL Normal 98-108 [facility] Comment on above: Result Comment: Canc elled via OM: MD Ordered Performed By: #### L 500.2500 ####[facility] [address] [place], [address] CO2 Normal 21.0-32.0 [facility] Comment on above: Result Comment: Canc elled via OM: MD Ordered Performed By: #### L 500.2500 ####[facility] [address] [place], [address] CREAT,SERUM Normal 0.70-1.20 [facility] Comment on above: Result Comment: Canc elled via OM: MD Ordered Performed By: #### L 500.2500 ####[facility] [address] [place], [address] eGFR Normal >60 [facility] Comment on above: Result Comment: Canc elled via OM: MD Ordered Performed By: #### L 500.2500 ####[facility] [address] [place], [address] GAP Normal 5-15 [facility] Comment on above: Result Comment: Canc elled via OM: MD Ordered Performed By: #### L 500.2500 ####[facility] [address] [place], [address] GLU Normal 70-99 [facility] Comment on above: Result Comment: Canc elled via OM: MD Ordered Performed By: #### L 500.2500 ####[facility] [address] [place], [address] Potassium Normal 3.3-5.1 [facility] Comment on above: Result Comment: Canc elled via OM: MD Ordered Performed By: #### L 500.2500 ####[facility] [address] [place], [address] Basic Metabolic Profile (BMP) Normal 133-145 [facility] Comment on above: Result Comment: Canc elled via OM: MD Ordered Performed By: #### L 500.2500 ####[facility] [address] [place], [address] BUN/CRE 8.1 RATIO Low 10-20 [facility] Comment on above: Performed By: #### L 500.2500 ####[facility] [address] [place], [address] Calcium [Mass/Vol] 8.0 mg/dL Normal 7.6-11.0 [facility] Comment on above: Performed By: #### L 500.2500 ####[facility] [address] [place], [address] Chloride [Moles/Vol] 110 mmol/L High 98-108 [facility] Comment on above: Performed By: #### L 500.2500 ####[facility] [address] [place], [address] CO2 [Moles/Vol] 21.4 mmol/L Normal 21.0-32.0 [facility] Comment on above: Performed By: #### L 500.2500 ####[facility] [address] [place], [address] Creatinine [Mass/Vol] 0.58 mg/dL Low 0.70-1.20 [facility] Comment on above: Performed By: #### L 500.2500 ####[facility] [address] [place], [address] ECRCL 148.22 ml/min Normal 50-250 [facility] Comment on above: Performed By: #### L 500.2500 ####[facility] [address] [place], [address] GAP 8 Normal 5-15 [facility] Comment on above: Performed By: #### L 500.2500 ####[facility] [address] [place], [address] GFR/1.73 sq M.predicted among non-blacks MDRD (S/P/Bld) [Vol rate/Area] 125 mL/min/{1.73_m2} Normal >60 [facility] Comment on above: Result Comment: mL/m in/1.73m2 CKD-EPI Creatinine Equation (2020) Performed By: #### L 500.2500 ####[facility] [address] [place], [address] Glucose [Mass/Vol] 113 mg/dL High 70-99 [facility] Comment on above: Performed By: #### L 500.2500 ####[facility] [address] [place], [address] Potassium [Moles/Vol] 3.2 mmol/L Low 3.3-5.1 [facility] Comment on above: Performed By: #### L 500.2500 ####[facility] [address] [place], [address] Sodium [Moles/Vol] 139 mmol/L Normal 133-145 [facility] Comment on above: Performed By: #### L 500.2500 ####[facility] [address] [place], [address] Urea nitrogen [Mass/Vol] 5 mg/dL Normal 4-19 [facility] Comment on above: Performed By: #### L 500.2500 ####[facility] [address] [place], [address] BUN/CRE 9.9 RATIO Low 10-20 [facility] Comment on above: Performed By: #### L 500.2500 ####[facility] [address] [place], [address] Calcium [Mass/Vol] 8.2 mg/dL Normal 7.6-11.0 [facility] Comment on above: Performed By: #### L 500.2500 ####[facility] [address] [place], [address] Chloride [Moles/Vol] 109 mmol/L High 98-108 [facility] Comment on above: Performed By: #### L 500.2500 ####[facility] [address] [place], [address] CO2 [Moles/Vol] 20.2 mmol/L Low 21.0-32.0 [facility] Comment on above: Performed By: #### L 500.2500 ####[facility] [address] [place], [address] Creatinine [Mass/Vol] 0.63 mg/dL Low 0.70-1.20 [facility] Comment on above: Performed By: #### L 500.2500 ####[facility] [address] [place], [address] ECRCL 136.46 ml/min Normal 50-250 [facility] Comment on above: Performed By: #### L 500.2500 ####[facility] [address] [place], [address] GAP 10 Normal 5-15 [facility] Comment on above: Performed By: #### L 500.2500 ####[facility] [address] [place], [address] GFR/1.73 sq M.predicted among non-blacks MDRD (S/P/Bld) [Vol rate/Area] 122 mL/min/{1.73_m2} Normal >60 [facility] Comment on above: Result Comment: mL/m in/1.73m2 CKD-EPI Creatinine Equation (2020) Performed By: #### L 500.2500 ####[facility] [address] [place], [address] Glucose [Mass/Vol] 136 mg/dL High 70-99 [facility] Comment on above: Performed By: #### L 500.2500 ####[facility] [address] [place], [address] Potassium [Moles/Vol] 3.3 mmol/L Normal 3.3-5.1 [facility] Comment on above: Performed By: #### L 500.2500 ####[facility] [address] [place], [address] Sodium [Moles/Vol] 139 mmol/L Normal 133-145 [facility] Comment on above: Performed By: #### L 500.2500 ####[facility] [address] [place], [address] Urea nitrogen [Mass/Vol] 6 mg/dL Normal 4-19 [facility] Comment on above: Performed By: #### L 500.2500 ####[facility] [address] [place], [address] Bedside Glucoseon 03-07-2025 FINGERSTICK GLU 282 mg/dL High 74-106 [facility] Comment on above: Result Comment: EDGAR GEMENT OF PATIENT CARE PER NURSING PROTOCOL Performed By: #### L 501.080 ####[facility] [address] [place], [address] FINGERSTICK GLU 262 mg/dL High 74-106 [facility] Comment on above: Result Comment: EDGAR GEMENT OF PATIENT CARE PER NURSING PROTOCOL Performed By: #### L 501.080 ####[facility] [address] [place], [address] FINGERSTICK GLU 354 mg/dL High 74-106 [facility] Comment on above: Result Comment: EDGAR GEMENT OF PATIENT CARE PER NURSING PROTOCOL Performed By: #### L 501.080 ####[facility] [address] [place], [address] FINGERSTICK GLU 169 mg/dL High 74-106 [facility] Comment on above: Result Comment: EDGAR GEMENT OF PATIENT CARE PER NURSING PROTOCOL Performed By: #### L 501.080 ####[facility] [address] [place], [address] FINGERSTICK GLU 163 mg/dL High 74-106 [facility] Comment on above: Result Comment: EDGAR GEMENT OF PATIENT CARE PER NURSING PROTOCOL Performed By: #### L 501.080 ####[facility] [address] [place], [address] FINGERSTICK GLU 106 mg/dL Normal 74-106 [facility] Comment on above: Result Comment: EDGAR GEMENT OF PATIENT CARE PER NURSING PROTOCOL Performed By: #### L 501.080 ####[facility] [address] [place], [address] FINGERSTICK GLU 88 mg/dL Normal 74-106 [facility] Comment on above: Result Comment: EDGAR GEMENT OF PATIENT CARE PER NURSING PROTOCOL Performed By: #### L 501.080 ####[facility] [address] [place], [address] FINGERSTICK GLU 94 mg/dL Normal 74-106 [facility] Comment on above: Result Comment: EDGAR GEMENT OF PATIENT CARE PER NURSING PROTOCOL Performed By: #### L 501.080 ####[facility] [address] [place], [address] FINGERSTICK GLU 129 mg/dL High 74-106 [facility] Comment on above: Result Comment: EDGAR GEMENT OF PATIENT CARE PER NURSING PROTOCOL Performed By: #### L 501.080 ####[facility] [address] [place], [address] FINGERSTICK GLU 119 mg/dL High 74-106 [facility] Comment on above: Result Comment: EDGAR GEMENT OF PATIENT CARE PER NURSING PROTOCOL Performed By: #### L 501.080 ####[facility] [address] [place], [address] Beta-Hydroxbytyrateon 2024 BETA-HYDROXYBUT 1.2 mmol/L High 0.0-0.3 [facility] Comment on above: Performed By: #### L 501.6901 ####[facility] [address] [place], [address] CBC-Complete Blood Cnt No Di ffon 03-07-2025 Erythrocyte distribution width (RBC) [Ratio] 13.8 % Normal 11.6-14.6 [facility] Comment on above: Performed By: #### L 100.0500 ####[facility] [address] [place], [address] Hematocrit (Bld) [Volume fraction] 33.3 % Low 37-47 [facility] Comment on above: Performed By: #### L 100.0500 ####[facility] [address] [place], [address] Hemoglobin (Bld) [Mass/Vol] 11.0 g/dL Low 12.0-15.0 [facility] Comment on above: Performed By: #### L 100.0500 ####[facility] [address] [place], [address] MCH (RBC) [Entitic mass] 29.6 pg Normal 27.0-32.0 [facility] Comment on above: Performed By: #### L 100.0500 ####[facility] [address] [place], [address] MCHC (RBC) [Mass/Vol] 33.0 g/dL Normal 32-36 [facility] Comment on above: Performed By: #### L 100.0500 ####[facility] [address] [place], [address] MCV (RBC) [Entitic vol] 89.8 fL Normal 81-99 [facility] Comment on above: Performed By: #### L 100.0500 ####[facility] [address] [place], [address] Platelet mean volume (Bld) [Entitic vol] 11.4 fL Normal 6.2-12.0 [facility] Comment on above: Performed By: #### L 100.0500 ####[facility] [address] [place], [address] Platelets (Bld) [#/Vol] 176 10*3/uL Normal 150-450 [facility] Comment on above: Performed By: #### L 100.0500 ####[facility] [address] [place], [address] RBC (Bld) [#/Vol] 3.71 10*6/uL Low 4.2-5.4 [facility] Comment on above: Performed By: #### L 100.0500 ####[facility] [address] [place], [address] RDW SD 45.2 fl High 35.1-43.9 [facility] Comment on above: Performed By: #### L 100.0500 ####[facility] [address] [place], [address] WBC (Bld) [#/Vol] 15.4 10*3/uL High 4.4-11.0 [facility] Comment on above: Performed By: #### L 100.0500 ####[facility] [address] [place], [address] Basic Metabolic Profile (BMP )on 03-06-2025 BUN/CRE 12.3 RATIO Normal 10-20 [facility] Comment on above: Order Comment: Call MD with results STAT Performed By: #### L 500.2500 ####[facility] [address] [place], [address] Calcium [Mass/Vol] 8.3 mg/dL Normal 7.6-11.0 [facility] Comment on above: Order Comment: Call MD with results STAT Performed By: #### L 500.2500 ####[facility] [address] [place], [address] Chloride [Moles/Vol] 107 mmol/L Normal 98-108 [facility] Comment on above: Order Comment: Call MD with results STAT Performed By: #### L 500.2500 ####[facility] [address] [place], [address] CO2 [Moles/Vol] 18.9 mmol/L Low 21.0-32.0 [facility] Comment on above: Order Comment: Call MD with results STAT Performed By: #### L 500.2500 ####[facility] [address] [place], [address] Creatinine [Mass/Vol] 0.68 mg/dL Low 0.70-1.20 [facility] Comment on above: Order Comment: Call MD with results STAT Performed By: #### L 500.2500 ####[facility] [address] [place], [address] ECRCL 126.42 ml/min Normal 50-250 [facility] Comment on above: Order Comment: Call MD with results STAT Performed By: #### L 500.2500 ####[facility] [address] [place], [address] GAP 12 Normal 5-15 [facility] Comment on above: Order Comment: Call MD with results STAT Performed By: #### L 500.2500 ####[facility] [address] [place], [address] GFR/1.73 sq M.predicted among non-blacks MDRD (S/P/Bld) [Vol rate/Area] 120 mL/min/{1.73_m2} Normal >60 [facility] Comment on above: Order Comment: Call MD with results STAT Result Comment: mL/m in/1.73m2 CKD-EPI Creatinine Equation (2020) Performed By: #### L 500.2500 ####[facility] [address] [place], [address] Glucose [Mass/Vol] 199 mg/dL High 70-99 [facility] Comment on above: Order Comment: Call MD with results STAT Performed By: #### L 500.2500 ####[facility] [address] [place], [address] Potassium [Moles/Vol] 3.6 mmol/L Normal 3.3-5.1 [facility] Comment on above: Order Comment: Call MD with results STAT Performed By: #### L 500.2500 ####[facility] [address] [place], [address] Sodium [Moles/Vol] 137 mmol/L Normal 133-145 [facility] Comment on above: Order Comment: Call MD with results STAT Performed By: #### L 500.2500 ####[facility] [address] [place], [address] Urea nitrogen [Mass/Vol] 8 mg/dL Normal 4-19 [facility] Comment on above: Order Comment: Call MD with results STAT Performed By: #### L 500.2500 ####[facility] [address] [place], [address] BUN/CRE 13.8 RATIO Normal 10-20 [facility] Comment on above: Order Comment: Call MD with results STAT Performed By: #### L 500.2500 ####[facility] [address] [place], [address] Calcium [Mass/Vol] 8.3 mg/dL Normal 7.6-11.0 [facility] Comment on above: Order Comment: Call MD with results STAT Performed By: #### L 500.2500 ####[facility] [address] [place], [address] Chloride [Moles/Vol] 105 mmol/L Normal 98-108 [facility] Comment on above: Order Comment: Call MD with results STAT Performed By: #### L 500.2500 ####[facility] [address] [place], [address] CO2 [Moles/Vol] 16.5 mmol/L Low 21.0-32.0 [facility] Comment on above: Order Comment: Call MD with results STAT Performed By: #### L 500.2500 ####[facility] [address] [place], [address] Creatinine [Mass/Vol] 0.70 mg/dL Normal 0.70-1.20 [facility] Comment on above: Order Comment: Call MD with results STAT Performed By: #### L 500.2500 ####[facility] [address] [place], [address] ECRCL 122.81 ml/min Normal 50-250 [facility] Comment on above: Order Comment: Call MD with results STAT Performed By: #### L 500.2500 ####[facility] [address] [place], [address] GAP 15 Normal 5-15 [facility] Comment on above: Order Comment: Call MD with results STAT Performed By: #### L 500.2500 ####[facility] [address] [place], [address] GFR/1.73 sq M.predicted among non-blacks MDRD (S/P/Bld) [Vol rate/Area] 119 mL/min/{1.73_m2} Normal >60 [facility] Comment on above: Order Comment: Call MD with results STAT Result Comment: mL/m in/1.73m2 CKD-EPI Creatinine Equation (2020) Performed By: #### L 500.2500 ####[facility] [address] [place], [address] Glucose [Mass/Vol] 239 mg/dL High 70-99 [facility] Comment on above: Order Comment: Call MD with results STAT Performed By: #### L 500.2500 ####[facility] [address] [place], [address] Potassium [Moles/Vol] 4.0 mmol/L Normal 3.3-5.1 [facility] Comment on above: Order Comment: Call MD with results STAT Performed By: #### L 500.2500 ####[facility] [address] [place], [address] Sodium [Moles/Vol] 136 mmol/L Normal 133-145 [facility] Comment on above: Order Comment: Call MD with results STAT Performed By: #### L 500.2500 ####[facility] [address] [place], [address] Urea nitrogen [Mass/Vol] 10 mg/dL Normal 4-19 [facility] Comment on above: Order Comment: Call MD with results STAT Performed By: #### L 500.2500 ####[facility] [address] [place], [address] BUN/CRE 15.9 RATIO Normal 10-20 [facility] Comment on above: Order Comment: Call MD with results STAT Performed By: #### L 500.2500 ####[facility] [address] [place], [address] Calcium [Mass/Vol] 8.3 mg/dL Normal 7.6-11.0 [facility] Comment on above: Order Comment: Call MD with results STAT Performed By: #### L 500.2500 ####[facility] [address] [place], [address] Chloride [Moles/Vol] 105 mmol/L Normal 98-108 [facility] Comment on above: Order Comment: Call MD with results STAT Performed By: #### L 500.2500 ####[facility] [address] [place], [address] CO2 [Moles/Vol] 13.0 mmol/L Low 21.0-32.0 [facility] Comment on above: Order Comment: Call MD with results STAT Performed By: #### L 500.2500 ####[facility] [address] [place], [address] Creatinine [Mass/Vol] 0.71 mg/dL Normal 0.70-1.20 [facility] Comment on above: Order Comment: Call MD with results STAT Performed By: #### L 500.2500 ####[facility] [address] [place], [address] ECRCL 121.08 ml/min Normal 50-250 [facility] Comment on above: Order Comment: Call MD with results STAT Performed By: #### L 500.2500 ####[facility] [address] [place], [address] GAP 18 High 5-15 [facility] Comment on above: Order Comment: Call MD with results STAT Performed By: #### L 500.2500 ####[facility] [address] [place], [address] GFR/1.73 sq M.predicted among non-blacks MDRD (S/P/Bld) [Vol rate/Area] 117 mL/min/{1.73_m2} Normal >60 [facility] Comment on above: Order Comment: Call MD with results STAT Result Comment: mL/m in/1.73m2 CKD-EPI Creatinine Equation (2020) Performed By: #### L 500.2500 ####[facility] [address] [place], [address] Glucose [Mass/Vol] 220 mg/dL High 70-99 [facility] Comment on above: Order Comment: Call MD with results STAT Performed By: #### L 500.2500 ####[facility] [address] [place], [address] Potassium [Moles/Vol] 4.3 mmol/L Normal 3.3-5.1 [facility] Comment on above: Order Comment: Call MD with results STAT Result Comment: Hemo lysis present, Results??could be affected.?? Performed By: #### L 500.2500 ####[facility] [address] [place], [address] Sodium [Moles/Vol] 136 mmol/L Normal 133-145 [facility] Comment on above: Order Comment: Call MD with results STAT Performed By: #### L 500.2500 ####[facility] [address] [place], [address] Urea nitrogen [Mass/Vol] 11 mg/dL Normal 4-19 [facility] Comment on above: Order Comment: Call MD with results STAT Performed By: #### L 500.2500 ####[facility] [address] [place], [address] BUN/CRE 17.5 RATIO Normal 10-20 [facility] Comment on above: Order Comment: Call MD with results STAT Performed By: #### L 500.2500 ####[facility] [address] [place], [address] Calcium [Mass/Vol] 8.8 mg/dL Normal 7.6-11.0 [facility] Comment on above: Order Comment: Call MD with results STAT Performed By: #### L 500.2500 ####[facility] [address] [place], [address] Chloride [Moles/Vol] 102 mmol/L Normal 98-108 [facility] Comment on above: Order Comment: Call MD with results STAT Performed By: #### L 500.2500 ####[facility] [address] [place], [address] CO2 [Moles/Vol] 11.6 mmol/L Low 21.0-32.0 [facility] Comment on above: Order Comment: Call MD with results STAT Performed By: #### L 500.2500 ####[facility] [address] [place], [address] Creatinine [Mass/Vol] 0.85 mg/dL Normal 0.70-1.20 [facility] Comment on above: Order Comment: Call MD with results STAT Performed By: #### L 500.2500 ####[facility] [address] [place], [address] ECRCL 101.14 ml/min Normal 50-250 [facility] Comment on above: Order Comment: Call MD with results STAT Performed By: #### L 500.2500 ####[facility] [address] [place], [address] GAP 22 High 5-15 [facility] Comment on above: Order Comment: Call MD with results STAT Performed By: #### L 500.2500 ####[facility] [address] [place], [address] GFR/1.73 sq M.predicted among non-blacks MDRD (S/P/Bld) [Vol rate/Area] 94 mL/min/{1.73_m2} Normal >60 [facility] Comment on above: Order Comment: Call MD with results STAT Result Comment: mL/m in/1.73m2 CKD-EPI Creatinine Equation (2020) Performed By: #### L 500.2500 ####[facility] [address] [place], [address] Glucose [Mass/Vol] 317 mg/dL High 70-99 [facility] Comment on above: Order Comment: Call MD with results STAT Performed By: #### L 500.2500 ####[facility] [address] [place], [address] Potassium [Moles/Vol] 4.6 mmol/L Normal 3.3-5.1 [facility] Comment on above: Order Comment: Call MD with results STAT Result Comment: Hemo lysis present, Results??could be affected.?? Performed By: #### L 500.2500 ####[facility] [address] [place], [address] Sodium [Moles/Vol] 136 mmol/L Normal 133-145 [facility] Comment on above: Order Comment: Call MD with results STAT Performed By: #### L 500.2500 ####[facility] [address] [place], [address] Urea nitrogen [Mass/Vol] 15 mg/dL Normal 4-19 [facility] Comment on above: Order Comment: Call MD with results STAT Performed By: #### L 500.2500 ####[facility] [address] [place], [address] BUN/CRE 18.2 RATIO Normal 10-20 [facility] Comment on above: Performed By: #### L 500.2500, L501.7300, L100.0100, L500.3400, L501.2450 ####[facility] [address] [place], [address] Calcium [Mass/Vol] 9.3 mg/dL Normal 7.6-11.0 [facility] Comment on above: Performed By: #### L 500.2500, L501.7300, L100.0100, L500.3400, L501.2450 ####[facility] [address] [place], [address] Chloride [Moles/Vol] 95 mmol/L Low 98-108 [facility] Comment on above: Performed By: #### L 500.2500, L501.7300, L100.0100, L500.3400, L501.2450 ####[facility] [address] [place], [address] CO2 [Moles/Vol] 11.4 mmol/L Low 21.0-32.0 [facility] Comment on above: Performed By: #### L 500.2500, L501.7300, L100.0100, L500.3400, L501.2450 ####[facility] [address] [place], [address] Creatinine [Mass/Vol] 0.87 mg/dL Normal 0.70-1.20 [facility] Comment on above: Performed By: #### L 500.2500, L501.7300, L100.0100, L500.3400, L501.2450 ####[facility] [address] [place], [address] ECRCL 98.81 ml/min Normal 50-250 [facility] Comment on above: Performed By: #### L 500.2500, L501.7300, L100.0100, L500.3400, L501.2450 ####[facility] [address] [place], [address] GAP 27 High 5-15 [facility] Comment on above: Performed By: #### L 500.2500, L501.7300, L100.0100, L500.3400, L501.2450 ####[facility] [address] [place], [address] GFR/1.73 sq M.predicted among non-blacks MDRD (S/P/Bld) [Vol rate/Area] 91 mL/min/{1.73_m2} Normal >60 [facility] Comment on above: Result Comment: mL/m in/1.73m2 CKD-EPI Creatinine Equation (2020) Performed By: #### L 500.2500, L501.7300, L100.0100, L500.3400, L501.2450 ####[facility] [address] [place], [address] Glucose [Mass/Vol] 547 mg/dL Invalid Interpretation Code 70-99 [facility] Comment on above: Result Comment: Crit ical Result(s) Called at 0240: by: SUZANNE AGUILERA??Results read back by same. Performed By: #### L 500.2500, L501.7300, L100.0100, L500.3400, L501.2450 ####[facility] [address] [place], [address] Potassium [Moles/Vol] 4.4 mmol/L Normal 3.3-5.1 [facility] Comment on above: Performed By: #### L 500.2500, L501.7300, L100.0100, L500.3400, L501.2450 ####[facility] [address] [place], [address] Sodium [Moles/Vol] 133 mmol/L Normal 133-145 [facility] Comment on above: Performed By: #### L 500.2500, L501.7300, L100.0100, L500.3400, L501.2450 ####[facility] [address] [place], [address] Urea nitrogen [Mass/Vol] 16 mg/dL Normal 4-19 [facility] Comment on above: Performed By: #### L 500.2500, L501.7300, L100.0100, L500.3400, L501.2450 ####[facility] [address] [place], [address] Bedside Glucoseon 03-06-2025 FINGERSTICK GLU 127 mg/dL High 74-106 [facility] Comment on above: Result Comment: EDGAR GEMENT OF PATIENT CARE PER NURSING PROTOCOL Performed By: #### L 501.080 ####[facility] [address] [place], [address] FINGERSTICK GLU 160 mg/dL High 74-106 [facility] Comment on above: Result Comment: EDGAR GEMENT OF PATIENT CARE PER NURSING PROTOCOL Performed By: #### L 501.080 ####[facility] [address] [place], [address] FINGERSTICK GLU 127 mg/dL High 74-106 [facility] Comment on above: Result Comment: EDGAR GEMENT OF PATIENT CARE PER NURSING PROTOCOL Performed By: #### L 501.080 ####[facility] [address] [place], [address] FINGERSTICK GLU 196 mg/dL High 74-106 [facility] Comment on above: Result Comment: EDGAR GEMENT OF PATIENT CARE PER NURSING PROTOCOL Performed By: #### L 501.080 ####[facility] [address] [place], [address] FINGERSTICK GLU 203 mg/dL High 74-106 [facility] Comment on above: Result Comment: Dr Ej foreman FollowedMANAGEMENT OF PATIENT CARE PER NURSING PROTOCOL Performed By: #### L 501.080 ####[facility] [address] [place], [address] FINGERSTICK GLU 231 mg/dL High 74-106 [facility] Comment on above: Result Comment: Dr Ej foreman FollowedMANAGEMENT OF PATIENT CARE PER NURSING PROTOCOL Performed By: #### L 501.080 ####[facility] [address] [place], [address] FINGERSTICK GLU 222 mg/dL High [address] [place] [address] Comment on above: Result Comment: EDGAR GEMENT OF PATIENT CARE PER NURSING PROTOCOL Performed By: #### L 501.080 ####[facility] [address] [place], [address] FINGERSTICK GLU 214 mg/dL High [facility]106 [facility] Comment on above: Result Comment: EDGAR GEMENT OF PATIENT CARE PER NURSING PROTOCOL Performed By: #### L 501.080 ####[facility] [address] [place], [address] FINGERSTICK GLU 214 mg/dL High [address] [place] [address] Comment on above: Result Comment: EDGAR GEMENT OF PATIENT CARE PER NURSING PROTOCOL Performed By: #### L 501.080 ####[facility] [address] [place], [address] FINGERSTICK GLU 241 mg/dL High -106 [facility] Comment on above: Result Comment: EDGAR GEMENT OF PATIENT CARE PER NURSING PROTOCOL Performed By: #### L 501.080 ####[facility] [address] [place], [address] FINGERSTICK GLU 247 mg/dL High 74-[address] [place] [address] Comment on above: Result Comment: Dr Ej foreman FollowedMANAGEMENT OF PATIENT CARE PER NURSING PROTOCOL Performed By: #### L 501.080 ####[facility] [address] [place], [address] FINGERSTICK GLU 217 mg/dL High [address] [place] [address] Comment on above: Result Comment: EDGAR GEMENT OF PATIENT CARE PER NURSING PROTOCOL Performed By: #### L 501.080 ####[facility] [address] [facility] [address] FINGERSTICK GLU 253 mg/dL High [address] [place] [address] Comment on above: Result Comment: EDGAR GEMENT OF PATIENT CARE PER NURSING PROTOCOL Performed By: #### L 501.080 ####[facility] [address] [place], [address] FINGERSTICK GLU 313 mg/dL High [address] [place] [address] Comment on above: Result Comment: EDGAR GEMENT OF PATIENT CARE PER NURSING PROTOCOL Performed By: #### L 501.080 ####[facility] [address] [place], [address] FINGERSTICK GLU 352 mg/dL High [address] [place] [address] Comment on above: Result Comment: EDGAR GEMENT OF PATIENT CARE PER NURSING PROTOCOL Performed By: #### L 501.080 ####[facility] [address] [place], [address] FINGERSTICK GLU 480 mg/dL Invalid Interpretation Code -[address] [place] [address] Comment on above: Result Comment: EDGAR GEMENT OF PATIENT CARE PER NURSING PROTOCOL Performed By: #### L 501.080 ####[facility] [address] [place], [address] Beta-Hydroxbytyrateon 2024 BETA-HYDROXYBUT 1.7 mmol/L High 0.0-0.3 [facility] Comment on above: Performed By: #### L 501.6901 ####[facility] [address] [place], [address] BETA-HYDROXYBUT 4.2 mmol/L High 0.0-0.3 [facility] Comment on above: Order Comment: FOR N IGHLTY MAINTENANCE, [facility] FOR THATREASON Performed By: #### L 501.6901 ####[facility] [address] [place], [address] CBC W/Diff, Automatedon 02-25 PLT MORPH CLUMPED Normal [facility] Comment on above: Performed By: #### L 100.0100 ####[facility] [address] [place], [address] RED CELL MORPH NORM C+C Normal NORM C C [facility] Comment on above: Performed By: #### L 100.0100 ####[facility] [address] [place], [address] PLT EST ADEQUATE Normal ADEQ [facility] Comment on above: Performed By: #### L 100.0100 ####[facility] [address] [place], [address] SMEAR COMMENT SCANNED Normal [facility] Comment on above: Performed By: #### L 100.0100 ####[facility] [address] [place], [address] Absolute Neut Normal 2.0-7.7 [facility] Comment on above: Result Comment: This specimen has been REJECTED due to Laboratory criteria:Clotted.GENO has been notified of need of recollection.03/06/25 Yokasta Hayn Performed By: #### L 500.2500, L501.7300, L100.0100, L500.3400, L501.2450 ####[facility] [address] [place], [address] HCT Normal 37-47 [facility] Comment on above: Result Comment: This specimen has been REJECTED due to Laboratory criteria:Clotted.GENO has been notified of need of recollection.03/06/25143 [place] Performed By: #### L 500.2500, L501.7300, L100.0100, L500.3400, L501.2450 ####[facility] [address] [place], [address] HGB Normal 12.0-15.0 [facility] Comment on above: Result Comment: This specimen has been REJECTED due to Laboratory criteria:Clotted.GENO has been notified of need of recollection.03/06/25143 [place] Performed By: #### L 500.2500, L501.7300, L100.0100, L500.3400, L501.2450 ####[facility] [address] [place], [address] MCH Normal 27.0-32.0 [facility] Comment on above: Result Comment: This specimen has been REJECTED due to Laboratory criteria:Clotted.GENO has been notified of need of recollection.03/06/25143 [place] Performed By: #### L 500.2500, L501.7300, L100.0100, L500.3400, L501.2450 ####[facility] [address] [place], [address] MCHC Normal 32-36 [facility] Comment on above: Result Comment: This specimen has been REJECTED due to Laboratory criteria:Clotted.GENO has been notified of need of recollection.03/06/25143 [place] Performed By: #### L 500.2500, L501.7300, L100.0100, L500.3400, L501.2450 ####[facility] [address] [place], [address] MCV Normal 81-99 [facility] Comment on above: Result Comment: This specimen has been REJECTED due to Laboratory criteria:Clotted.GENO has been notified of need of recollection.03/06/25143 [place] Performed By: #### L 500.2500, L501.7300, L100.0100, L500.3400, L501.2450 ####[facility] [address] [place], [address] NEUT% Normal 47-70 [facility] Comment on above: Result Comment: This specimen has been REJECTED due to Laboratory criteria:Clotted.GENO has been notified of need of recollection.03/06/25143 [place] Performed By: #### L 500.2500, L501.7300, L100.0100, L500.3400, L501.2450 ####[facility] [address] [place], [address] PLT Normal 150-450 [facility] Comment on above: Result Comment: This specimen has been REJECTED due to Laboratory criteria:Clotted.GENO has been notified of need of recollection.03/06/25143 [place] Performed By: #### L 500.2500, L501.7300, L100.0100, L500.3400, L501.2450 ####[facility] [address] [place], [address] RBC Normal 4.2-5.4 [facility] Comment on above: Result Comment: This specimen has been REJECTED due to Laboratory criteria:Clotted.GENO has been notified of need of recollection.03/06/25143 [place] Performed By: #### L 500.2500, L501.7300, L100.0100, L500.3400, L501.2450 ####[facility] [address] [place], [address] RDW CV Normal 11.6-14.6 [facility] Comment on above: Result Comment: This specimen has been REJECTED due to Laboratory criteria:Clotted.GENO has been notified of need of recollection.03/06/25143 [place] Performed By: #### L 500.2500, L501.7300, L100.0100, L500.3400, L501.2450 ####[facility] [address] [place], [address] RDW SD Normal 35.1-43.9 [facility] Comment on above: Result Comment: This specimen has been REJECTED due to Laboratory criteria:Clotted.GENO has been notified of need of recollection.03/06/25143 [place] Performed By: #### L 500.2500, L501.7300, L100.0100, L500.3400, L501.2450 ####[facility] [address] [place], [address] WBC Normal 4.4-11.0 [facility] Comment on above: Result Comment: This specimen has been REJECTED due to Laboratory criteria:Clotted.GENO has been notified of need of recollection.03/06/25143 [place] Performed By: #### L 500.2500, L501.7300, L100.0100, L500.3400, L501.2450 ####[facility] [address] [place], [address] Chest PA and Lateralon 03-06 Chest PA and Lateral Normal [facility] Emergency Department Summary on 03-06-2025 Emergency Department Summary Normal [facility] H AND P Exam - Hospitaliston 03-06-2025 H&P Exam - Hospitalist Normal [facility] Lipaseon 03-06-2025 Lipase [Catalytic activity/Vol] 21 U/L Normal 13-75 [facility] Comment on above: Result Comment: Sulma schmitz note:LIPASE revised reference range effective 22.New Lipase methodology. Expected to produce lower valuesthan the previous assay method.NEW Reference Range: 13 - 75 U/L Performed By: #### L 500.2500, L501.7300, L100.0100, L500.3400, L501.2450 ####[facility] [address] [place], [address] Liver Profileon 03-06-2025 Albumin [Mass/Vol] 4.4 g/dL Normal 3.5-5.0 [facility] Comment on above: Performed By: #### L 500.2500, L501.7300, L100.0100, L500.3400, L501.2450 ####[facility] [address] [place], [address] ALK PHOS 85 U/L Normal 35-104 [facility] Comment on above: Performed By: #### L 500.2500, L501.7300, L100.0100, L500.3400, L501.2450 ####[facility] [address] [place], [address] ALT [Catalytic activity/Vol] 11 U/L Normal <=34 [facility] Comment on above: Performed By: #### L 500.2500, L501.7300, L100.0100, L500.3400, L501.2450 ####[facility] [address] [place], [address] AST [Catalytic activity/Vol] 17 U/L Normal <=31 [facility] Comment on above: Performed By: #### L 500.2500, L501.7300, L100.0100, L500.3400, L501.2450 ####[facility] [address] [place], [address] Bilirubin [Mass/Vol] 0.79 mg/dL Normal 0.00-1.30 [facility] Comment on above: Performed By: #### L 500.2500, L501.7300, L100.0100, L500.3400, L501.2450 ####[facility] [address] [place], [address] Bilirubin.direct [Mass/Vol] 0.35 mg/dL High 0.00-0.30 [facility] Comment on above: Performed By: #### L 500.2500, L501.7300, L100.0100, L500.3400, L501.2450 ####[facility] [address] [place], [address] Globulin (S) [Mass/Vol] 2.5 g/dL Normal 2.2-4.2 [facility] Comment on above: Performed By: #### L 500.2500, L501.7300, L100.0100, L500.3400, L501.2450 ####[facility] [address] [place], [address] T PROT 6.9 g/dL Normal 5.9-8.4 [facility] Comment on above: Performed By: #### L 500.2500, L501.7300, L100.0100, L500.3400, L501.2450 ####[facility] [address] [place], [address] Osmolality, Serumon 03-06-20 25 OSMOLALITY,SER 325 mOsm/KG High 275-295 [facility] Comment on above: Performed By: #### L 500.2500, L501.7300, L100.0100, L500.3400, L501.2450 ####[facility] [address] [place], [address] Venous Blood Gason 5 VBG pCO2 8.2 mmHg Invalid Interpretation Code 41-51 [facility] Comment on above: Performed By: #### L 9000.0810 ####[facility] [address] [place], [address] Bedside Glucoseon 03-05-2025 FINGERSTICK GLU 91 mg/dL Normal 74-106 [facility] Comment on above: Result Comment: EDGAR HUNG OF PATIENT CARE PER NURSING PROTOCOL Performed By: #### L 501.080 ####[facility] [address] [place], [address] Colonoscopy Reporton 025 Colonoscopy Report Normal [facility] EGD Reporton 03-05-2025 EGD Report Normal [facility] Immunohistochemical Stainson 03-05-2025 Immunohistochemical Stains Normal [facility] Comment on above: Performed By: #### P IMHI ####[facility] [address] [place], [address] MR/POSTOP.ANEon 03-05-2025 MR/POSTOP.ANE Normal [facility] MR/TKPDWEUN5fv 03-05-2025 MR/POSTOPAN2 Normal [facility] MR/PAT.ANEon 03-04-2025 MR/PAT.ANE Normal [facility] CBC W/Diff, Automatedon Absolute Lymph 2.23 X10 3/uL Normal 0.83-4.51 [facility] Comment on above: Performed By: #### L 500.4050, L501.5200, L100.0100 ####[facility] [address] [place], [address] Absolute Neut 9.6 X10 3/uL High 2.0-7.7 [facility] Comment on above: Performed By: #### L 500.4050, L501.5200, L100.0100 ####[facility] [address] [place], [address] Basophils/100 WBC (Bld) 0.4 % Normal 0-1 [facility] Comment on above: Performed By: #### L 500.4050, L501.5200, L100.0100 ####[facility] [address] [place], [address] Eosinophils/100 WBC (Bld) 2.7 % Normal 0-5 [facility] Comment on above: Performed By: #### L 500.4050, L501.5200, L100.0100 ####[facility] [address] [place], [address] Erythrocyte distribution width (RBC) [Ratio] 13.7 % Normal 11.6-14.6 [facility] Comment on above: Performed By: #### L 500.4050, L501.5200, L100.0100 ####[facility] [address] [place], [address] Hematocrit (Bld) [Volume fraction] 43.5 % Normal 37-47 [facility] Comment on above: Performed By: #### L 500.4050, L501.5200, L100.0100 ####[facility] [address] [place], [address] Hemoglobin (Bld) [Mass/Vol] 14.2 g/dL Normal 12.0-15.0 [facility] Comment on above: Performed By: #### L 500.4050, L501.5200, L100.0100 ####[facility] [address] [place], [address] IG% 1.800 High 0.0-0.9 [facility] Comment on above: Result Comment: IG% - Immature Granulocytes (promyelocytes, myelocytes andmetamyelocytes) > 1% indicates that a LEFT SHIFT is Present. Performed By: #### L 500.4050, L501.5200, L100.0100 ####[facility] [address] [place], [address] Lymphocytes/100 WBC (Bld) 17.1 % Low 19-41 [facility] Comment on above: Performed By: #### L 500.4050, L501.5200, L100.0100 ####[facility] [address] [place], [address] MCH (RBC) [Entitic mass] 29.3 pg Normal 27.0-32.0 [facility] Comment on above: Performed By: #### L 500.4050, L501.5200, L100.0100 ####[facility] [address] [place], [address] MCHC (RBC) [Mass/Vol] 32.6 g/dL Normal 32-36 [facility] Comment on above: Performed By: #### L 500.4050, L501.5200, L100.0100 ####[facility] [address] [place], [address] MCV (RBC) [Entitic vol] 89.9 fL Normal 81-99 [facility] Comment on above: Performed By: #### L 500.4050, L501.5200, L100.0100 ####[facility] [address] [place], [address] Monocytes/100 WBC (Bld) 4.6 % Normal 0-10 [facility] Comment on above: Performed By: #### L 500.4050, L501.5200, L100.0100 ####[facility] [address] [place], [address] Neutrophils/100 WBC (Bld) 73.4 % High 47-70 [facility] Comment on above: Performed By: #### L 500.4050, L501.5200, L100.0100 ####[facility] [address] [place], [address] Nucleated RBC (Bld) [#/Vol] 0 10*3/uL Normal 0-5 [facility] Comment on above: Performed By: #### L 500.4050, L501.5200, L100.0100 ####[facility] [address] [place], [address] Platelet mean volume (Bld) [Entitic vol] 12.2 fL High 6.2-12.0 [facility] Comment on above: Performed By: #### L 500.4050, L501.5200, L100.0100 ####[facility] [address] [place], [address] Platelets (Bld) [#/Vol] 201 10*3/uL Normal 150-450 [facility] Comment on above: Performed By: #### L 500.4050, L501.5200, L100.0100 ####[facility] [address] [place], [address] RBC (Bld) [#/Vol] 4.84 10*6/uL Normal 4.2-5.4 [facility] Comment on above: Performed By: #### L 500.4050, L501.5200, L100.0100 ####[facility] [address] [place], [address] RDW SD 44.5 fl High 35.1-43.9 [facility] Comment on above: Performed By: #### L 500.4050, L501.5200, L100.0100 ####[facility] [address] [place], [address] WBC (Bld) [#/Vol] 13.1 10*3/uL High 4.4-11.0 [facility] Comment on above: Performed By: #### L 500.4050, L501.5200, L100.0100 ####[facility] [address] [place], [address] Comprehensive Metabolic Prof ilon 02-25-2025 Albumin [Mass/Vol] 4.2 g/dL Normal 3.5-5.0 [facility] Comment on above: Performed By: #### L 500.4050, L501.5200, L100.0100 ####[facility] [address] [place], [address] Albumin/Globulin [Mass ratio] 1.6 {ratio} Normal 0.9-2.4 [facility] Comment on above: Performed By: #### L 500.4050, L501.5200, L100.0100 ####[facility] [address] [place], [address] ALK PHOS 77 U/L Normal 35-104 [facility] Comment on above: Performed By: #### L 500.4050, L501.5200, L100.0100 ####[facility] [address] [place], [address] ALT [Catalytic activity/Vol] 7 U/L Normal <=34 [facility] Comment on above: Performed By: #### L 500.4050, L501.5200, L100.0100 ####[facility] [address] [place], [address] AST [Catalytic activity/Vol] 15 U/L Normal <=31 [facility] Comment on above: Performed By: #### L 500.4050, L501.5200, L100.0100 ####[facility] [address] [place], [address] Bilirubin [Mass/Vol] 0.71 mg/dL Normal 0.00-1.30 [facility] Comment on above: Performed By: #### L 500.4050, L501.5200, L100.0100 ####[facility] [address] [place], [address] BUN/CRE 18.7 RATIO Normal 10-20 [facility] Comment on above: Performed By: #### L 500.4050, L501.5200, L100.0100 ####[facility] [address] [place], [address] Calcium [Mass/Vol] 9.2 mg/dL Normal 7.6-11.0 [facility] Comment on above: Performed By: #### L 500.4050, L501.5200, L100.0100 ####[facility] [address] [place], [address] Chloride [Moles/Vol] 104 mmol/L Normal 98-108 [facility] Comment on above: Performed By: #### L 500.4050, L501.5200, L100.0100 ####[facility] [address] [place], [address] CO2 [Moles/Vol] 20.2 mmol/L Low 21.0-32.0 [facility] Comment on above: Performed By: #### L 500.4050, L501.5200, L100.0100 ####[facility] [address] [place], [address] Creatinine [Mass/Vol] 0.63 mg/dL Low 0.70-1.20 [facility] Comment on above: Performed By: #### L 500.4050, L501.5200, L100.0100 ####[facility] [address] [place], [address] GAP 14 Normal 5-15 [facility] Comment on above: Performed By: #### L 500.4050, L501.5200, L100.0100 ####[facility] [address] [place], [address] GFR/1.73 sq M.predicted among non-blacks MDRD (S/P/Bld) [Vol rate/Area] 122 mL/min/{1.73_m2} Normal >60 [facility] Comment on above: Result Comment: mL/m in/1.73m2 CKD-EPI Creatinine Equation (2020) Performed By: #### L 500.4050, L501.5200, L100.0100 ####[facility] [address] [place], [address] Globulin (S) [Mass/Vol] 2.6 g/dL Normal 2.2-4.2 [facility] Comment on above: Performed By: #### L 500.4050, L501.5200, L100.0100 ####[facility] [address] [place], [address] Glucose [Mass/Vol] 153 mg/dL High 70-99 [facility] Comment on above: Performed By: #### L 500.4050, L501.5200, L100.0100 ####[facility] [address] [place], [address] Potassium [Moles/Vol] 3.9 mmol/L Normal 3.3-5.1 [facility] Comment on above: Performed By: #### L 500.4050, L501.5200, L100.0100 ####[facility] [address] [place], [address] Sodium [Moles/Vol] 138 mmol/L Normal 133-145 [facility] Comment on above: Performed By: #### L 500.4050, L501.5200, L100.0100 ####[facility] [address] [place], [address] T PROT 6.7 g/dL Normal 5.9-8.4 [facility] Comment on above: Performed By: #### L 500.4050, L501.5200, L100.0100 ####[facility] [address] [place], [address] Urea nitrogen [Mass/Vol] 12 mg/dL Normal 4-19 [facility] Comment on above: Performed By: #### L 500.4050, L501.5200, L100.0100 ####[facility] [address] [place], [address] Magnesiumon 02-25-2025 Magnesium [Mass/Vol] 2.2 mg/dL Normal 1.5-2.2 [facility] Comment on above: Performed By: #### L 500.4050, L501.5200, L100.0100 ####[facility] [address] [place], [address] Discharge Instructionon 01-27 Discharge Instruction Normal [facility] Basic Metabolic Profile (BMP )on 02-20-2025 BUN Normal 4-19 [facility] Comment on above: Result Comment: Canc elled via OM: Order cancelled - Patient discharged Performed By: #### L 100.0500, L500.2500 ####[facility] [address] [place], [address] BUN/CRE Normal 10-20 [facility] Comment on above: Result Comment: Canc elled via OM: Order cancelled - Patient discharged Performed By: #### L 100.0500, L500.2500 ####[facility] [address] [place], [address] Calcium Normal 7.6-11.0 [facility] Comment on above: Result Comment: Canc elled via OM: Order cancelled - Patient discharged Performed By: #### L 100.0500, L500.2500 ####[facility] [address] [place], [address] CL Normal 98-108 [facility] Comment on above: Result Comment: Canc elled via OM: Order cancelled - Patient discharged Performed By: #### L 100.0500, L500.2500 ####[facility] [address] [place], [address] CO2 Normal 21.0-32.0 [facility] Comment on above: Result Comment: Canc elled via OM: Order cancelled - Patient discharged Performed By: #### L 100.0500, L500.2500 ####[facility] [address] [place], [address] CREAT,SERUM Normal 0.70-1.20 [facility] Comment on above: Result Comment: Canc elled via OM: Order cancelled - Patient discharged Performed By: #### L 100.0500, L500.2500 ####[facility] [address] [place], [address] eGFR Normal >60 [facility] Comment on above: Result Comment: Canc elled via OM: Order cancelled - Patient discharged Performed By: #### L 100.0500, L500.2500 ####[facility] [address] [place], [address] GAP Normal 5-15 [facility] Comment on above: Result Comment: Canc elled via OM: Order cancelled - Patient discharged Performed By: #### L 100.0500, L500.2500 ####[facility] [address] [place], [address] GLU Normal 70-99 [facility] Comment on above: Result Comment: Canc elled via OM: Order cancelled - Patient discharged Performed By: #### L 100.0500, L500.2500 ####[facility] [address] [place], [address] Potassium Normal 3.3-5.1 [facility] Comment on above: Result Comment: Canc elled via OM: Order cancelled - Patient discharged Performed By: #### L 100.0500, L500.2500 ####[facility] [address] [place], [address] Basic Metabolic Profile (BMP) Normal 133-145 [facility] Comment on above: Result Comment: Canc elled via OM: Order cancelled - Patient discharged Performed By: #### L 100.0500, L500.2500 ####[facility] [address] [place], [address] Bedside Glucoseon 02-20-2025 FINGERSTICK GLU 143 mg/dL High 74-106 [facility] Comment on above: Result Comment: EDGAR HUNG OF PATIENT CARE PER NURSING PROTOCOL Performed By: #### L 501.080 ####[facility] [address] [place], [address] CBC-Complete Blood Cnt No Di ffon 02-20-2025 HCT Normal 37-47 [facility] Comment on above: Result Comment: Canc elled via OM: Order cancelled - Patient discharged Performed By: #### L 100.0500, L500.2500 ####[facility] [address] [place], [address] HGB Normal 12.0-15.0 [facility] Comment on above: Result Comment: Canc elled via OM: Order cancelled - Patient discharged Performed By: #### L 100.0500, L500.2500 ####[facility] [address] [place], [address] MCH Normal 27.0-32.0 [facility] Comment on above: Result Comment: Canc elled via OM: Order cancelled - Patient discharged Performed By: #### L 100.0500, L500.2500 ####[facility] [address] [place], [address] MCHC Normal 32-36 [facility] Comment on above: Result Comment: Canc elled via OM: Order cancelled - Patient discharged Performed By: #### L 100.0500, L500.2500 ####[facility] [address] [place], [address] MCV Normal 81-99 [facility] Comment on above: Result Comment: Canc elled via OM: Order cancelled - Patient discharged Performed By: #### L 100.0500, L500.2500 ####[facility] [address] [place], [address] PLT Normal 150-450 [facility] Comment on above: Result Comment: Canc elled via OM: Order cancelled - Patient discharged Performed By: #### L 100.0500, L500.2500 ####[facility] [address] [place], [address] RBC Normal 4.2-5.4 [facility] Comment on above: Result Comment: Canc elled via OM: Order cancelled - Patient discharged Performed By: #### L 100.0500, L500.2500 ####[facility] [address] [place], [address] RDW CV Normal 11.6-14.6 [facility] Comment on above: Result Comment: Canc elled via OM: Order cancelled - Patient discharged Performed By: #### L 100.0500, L500.2500 ####[facility] [address] [place], [address] RDW SD Normal 35.1-43.9 [facility] Comment on above: Result Comment: Canc elled via OM: Order cancelled - Patient discharged Performed By: #### L 100.0500, L500.2500 ####[facility] [address] [place], [address] WBC Normal 4.4-11.0 [facility] Comment on above: Result Comment: Canc elled via OM: Order cancelled - Patient discharged Performed By: #### L 100.0500, L500.2500 ####[facility] [address] [place], [address] Basic Metabolic Profile (BMP )on 02-19-2025 BUN Normal 4-19 [facility] Comment on above: Result Comment: Canc elled via OM: insulin off Performed By: #### L 500.2500 ####[facility] [address] [place], [address] Order Comment: Call MD with results STAT Result Comment: Canc elled via OM: MD Ordered Result Comment: OM C ANCEL REQUEST BUN/CRE Normal 10-20 [facility] Comment on above: Result Comment: Canc elled via OM: insulin off Performed By: #### L 500.2500 ####[facility] [address] [place], [address] Order Comment: Call MD with results STAT Result Comment: Canc elled via OM: MD Ordered Result Comment: OM C ANCEL REQUEST Calcium Normal 7.6-11.0 [facility] Comment on above: Result Comment: Canc elled via OM: insulin off Performed By: #### L 500.2500 ####[facility] [address] [place], [address] Order Comment: Call MD with results STAT Result Comment: Canc elled via OM: MD Ordered Result Comment: OM C ANCEL REQUEST CL Normal 98-108 [facility] Comment on above: Result Comment: Canc elled via OM: insulin off Performed By: #### L 500.2500 ####[facility] [address] [place] [id number] Order Comment: Call MD with results STAT Result Comment: Canc elled via OM: MD Ordered Result Comment: OM C ANCEL REQUEST CO2 Normal 21.0-32.0 [facility] Comment on above: Result Comment: Canc elled via OM: insulin off Performed By: #### L 500.2500 ####[facility] [address] [place], [address] Order Comment: Call MD with results STAT Result Comment: Canc elled via OM: MD Ordered Result Comment: OM C ANCEL REQUEST CREAT,SERUM Normal 0.70-1.20 [facility] Comment on above: Result Comment: Canc elled via OM: insulin off Performed By: #### L 500.2500 ####[facility] [address] [place], [address] Order Comment: Call MD with results STAT Result Comment: Canc elled via OM: MD Ordered Result Comment: OM C ANCEL REQUEST eGFR Normal >60 [facility] Comment on above: Result Comment: Canc elled via OM: insulin off Performed By: #### L 500.2500 ####[facility] [address] [place], [address] Order Comment: Call MD with results STAT Result Comment: Canc elled via OM: MD Ordered Result Comment: OM C ANCEL REQUEST GAP Normal 5-15 [facility] Comment on above: Result Comment: Canc elled via OM: insulin off Performed By: #### L 500.2500 ####[facility] [address] [place], [address] Order Comment: Call MD with results STAT Result Comment: Canc elled via OM: MD Ordered Result Comment: OM C ANCEL REQUEST GLU Normal 70-99 [facility] Comment on above: Result Comment: Canc elled via OM: insulin off Performed By: #### L 500.2500 ####[facility] [address] [place], [address] Order Comment: Call MD with results STAT Result Comment: Canc elled via OM: MD Ordered Result Comment: OM C ANCEL REQUEST Potassium Normal 3.3-5.1 [facility] Comment on above: Result Comment: Canc elled via OM: insulin off Performed By: #### L 500.2500 ####[facility] [address] [place], [address] Order Comment: Call MD with results STAT Result Comment: Canc elled via OM: MD Ordered Result Comment: OM C ANCEL REQUEST Basic Metabolic Profile (BMP) Normal 133-145 [facility] Comment on above: Result Comment: Canc elled via OM: insulin off Performed By: #### L 500.2500 ####[facility] [facility] [address] [place], [address] Order Comment: Call MD with results STAT Result Comment: Canc elled via OM: MD Ordered Result Comment: OM C ANCEL REQUEST BUN/CRE 8.8 RATIO Low 10-20 [facility] Comment on above: Performed By: #### L 500.2500 ####[facility] [address] [place], [address] Calcium [Mass/Vol] 8.5 mg/dL Normal 7.6-11.0 [facility] Comment on above: Performed By: #### L 500.2500 ####[facility] [address] [place], [address] Chloride [Moles/Vol] 107 mmol/L Normal 98-108 [facility] Comment on above: Performed By: #### L 500.2500 ####[facility] [address] [place], [address] CO2 [Moles/Vol] 18.6 mmol/L Low 21.0-32.0 [facility] Comment on above: Performed By: #### L 500.2500 ####[facility] [address] [place], [address] Creatinine [Mass/Vol] 0.63 mg/dL Low 0.70-1.20 [facility] Comment on above: Performed By: #### L 500.2500 ####[facility] [address] [place], [address] ECRCL 136.46 ml/min Normal 50-250 [facility] Comment on above: Performed By: #### L 500.2500 ####[facility] [address] [place], [address] GAP 13 Normal 5-15 [facility] Comment on above: Performed By: #### L 500.2500 ####[facility] [address] [place], [address] GFR/1.73 sq M.predicted among non-blacks MDRD (S/P/Bld) [Vol rate/Area] 122 mL/min/{1.73_m2} Normal >60 [facility] Comment on above: Result Comment: mL/m in/1.73m2 CKD-EPI Creatinine Equation (2020) Performed By: #### L 500.2500 ####[facility] [address] [place], [address] Glucose [Mass/Vol] 249 mg/dL High 70-99 [facility] Comment on above: Performed By: #### L 500.2500 ####[facility] [address] [place], [address] Potassium [Moles/Vol] 4.1 mmol/L Normal 3.3-5.1 [facility] Comment on above: Performed By: #### L 500.2500 ####[facility] [address] [place], [address] Sodium [Moles/Vol] 138 mmol/L Normal 133-145 [facility] Comment on above: Performed By: #### L 500.2500 ####[facility] [address] [place], [address] Urea nitrogen [Mass/Vol] 6 mg/dL Normal 4-19 [facility] Comment on above: Performed By: #### L 500.2500 ####[facility] [address] [place], [address] BUN/CRE 10.8 RATIO Normal 10-20 [facility] Comment on above: Performed By: #### L 100.0100, L501.5200, L500.2500 ####[facility] [address] [place], [address] Calcium [Mass/Vol] 8.0 mg/dL Normal 7.6-11.0 [facility] Comment on above: Performed By: #### L 100.0100, L501.5200, L500.2500 ####[facility] [address] [place], [address] Chloride [Moles/Vol] 112 mmol/L High 98-108 [facility] Comment on above: Performed By: #### L 100.0100, L501.5200, L500.2500 ####[facility] [address] [place], [address] CO2 [Moles/Vol] 17.1 mmol/L Low 21.0-32.0 [facility] Comment on above: Performed By: #### L 100.0100, L501.5200, L500.2500 ####[facility] [address] [place], [address] Creatinine [Mass/Vol] 0.57 mg/dL Low 0.70-1.20 [facility] Comment on above: Performed By: #### L 100.0100, L501.5200, L500.2500 ####[facility] [address] [place], [address] ECRCL 150.82 ml/min Normal 50-250 [facility] Comment on above: Performed By: #### L 100.0100, L501.5200, L500.2500 ####[facility] [address] [place], [address] GAP 10 Normal 5-15 [facility] Comment on above: Performed By: #### L 100.0100, L501.5200, L500.2500 ####[facility] [address] [place], [address] GFR/1.73 sq M.predicted among non-blacks MDRD (S/P/Bld) [Vol rate/Area] 126 mL/min/{1.73_m2} Normal >60 [facility] Comment on above: Result Comment: mL/m in/1.73m2 CKD-EPI Creatinine Equation (2020) Performed By: #### L 100.0100, L501.5200, L500.2500 ####[facility] [address] [place], [address] Glucose [Mass/Vol] 81 mg/dL Normal 70-99 [facility] Comment on above: Performed By: #### L 100.0100, L501.5200, L500.2500 ####[facility] [address] [place], [address] Potassium [Moles/Vol] 4.0 mmol/L Normal 3.3-5.1 [facility] Comment on above: Result Comment: Hemo lysis present, Results??could be affected.?? Performed By: #### L 100.0100, L501.5200, L500.2500 ####[facility] [address] [place], [address] Sodium [Moles/Vol] 139 mmol/L Normal 133-145 [facility] Comment on above: Performed By: #### L 100.0100, L501.5200, L500.2500 ####[facility] [address] [place], [address] Urea nitrogen [Mass/Vol] 6 mg/dL Normal 4-19 [facility] Comment on above: Performed By: #### L 100.0100, L501.5200, L500.2500 ####[facility] [address] [place], [address] BUN Normal 4-19 [facility] Comment on above: Order Comment: Call MD with results STAT Result Comment: OM C ANCEL REQUEST Performed By: #### L 500.2500 ####[facility] [address] [place], [address] BUN/CRE Normal 10-20 [facility] Comment on above: Order Comment: Call MD with results STAT Result Comment: OM C ANCEL REQUEST Performed By: #### L 500.2500 ####[facility] [address] [place], [address] Calcium Normal 7.6-11.0 [facility] Comment on above: Order Comment: Call MD with results STAT Result Comment: OM C ANCEL REQUEST Performed By: #### L 500.2500 ####[facility] [address] [place], [address] CL Normal 98-108 [facility] Comment on above: Order Comment: Call MD with results STAT Result Comment: OM C ANCEL REQUEST Performed By: #### L 500.2500 ####[facility] [address] [place], [address] CO2 Normal 21.0-32.0 [facility] Comment on above: Order Comment: Call MD with results STAT Result Comment: OM C ANCEL REQUEST Performed By: #### L 500.2500 ####[facility] [address] [place], [address] CREAT,SERUM Normal 0.70-1.20 [facility] Comment on above: Order Comment: Call MD with results STAT Result Comment: OM C ANCEL REQUEST Performed By: #### L 500.2500 ####[facility] [address] [place], [address] eGFR Normal >60 [facility] Comment on above: Order Comment: Call MD with results STAT Result Comment: OM C ANCEL REQUEST Performed By: #### L 500.2500 ####[facility] [address] [place], [address] GAP Normal 5-15 [facility] Comment on above: Order Comment: Call MD with results STAT Result Comment: OM C ANCEL REQUEST Performed By: #### L 500.2500 ####[facility] [address] [place], [address] GLU Normal 70-99 [facility] Comment on above: Order Comment: Call MD with results STAT Result Comment: OM C ANCEL REQUEST Performed By: #### L 500.2500 ####[facility] [address] [place], [address] Potassium Normal 3.3-5.1 [facility] Comment on above: Order Comment: Call MD with results STAT Result Comment: OM C ANCEL REQUEST Performed By: #### L 500.2500 ####[facility] [address] [place], [address] Basic Metabolic Profile (BMP) Normal 133-145 [facility] Comment on above: Order Comment: Call MD with results STAT Result Comment: OSMAN ZAPIEN REQUEST Performed By: #### L 500.2500 ####[facility] [address] [place], [address] BUN/CRE 13.3 RATIO Normal 10-20 [facility] Comment on above: Order Comment: Call MD with results STAT Performed By: #### L 500.2500 ####[facility] [address] [place], [address] Calcium [Mass/Vol] 8.1 mg/dL Normal 7.6-11.0 [facility] Comment on above: Order Comment: Call MD with results STAT Performed By: #### L 500.2500 ####[facility] [address] [place], [address] Chloride [Moles/Vol] 108 mmol/L Normal 98-108 [facility] Comment on above: Order Comment: Call MD with results STAT Performed By: #### L 500.2500 ####[facility] [address] [place], [address] CO2 [Moles/Vol] 17.8 mmol/L Low 21.0-32.0 [facility] Comment on above: Order Comment: Call MD with results STAT Performed By: #### L 500.2500 ####[facility] [address] [place], [address] Creatinine [Mass/Vol] 0.56 mg/dL Low 0.70-1.20 [facility] Comment on above: Order Comment: Call MD with results STAT Performed By: #### L 500.2500 ####[facility] [address] [place], [address] ECRCL 153.51 ml/min Normal 50-250 [facility] Comment on above: Order Comment: Call MD with results STAT Performed By: #### L 500.2500 ####[facility] [address] [place], [address] GAP 12 Normal 5-15 [facility] Comment on above: Order Comment: Call MD with results STAT Performed By: #### L 500.2500 ####[facility] [address] [place], [address] GFR/1.73 sq M.predicted among non-blacks MDRD (S/P/Bld) [Vol rate/Area] 126 mL/min/{1.73_m2} Normal >60 [facility] Comment on above: Order Comment: Call MD with results STAT Result Comment: mL/m in/1.73m2 CKD-EPI Creatinine Equation (2020) Performed By: #### L 500.2500 ####[facility] [address] [place], [address] Glucose [Mass/Vol] 126 mg/dL High 70-99 [facility] Comment on above: Order Comment: Call MD with results STAT Performed By: #### L 500.2500 ####[facility] [address] [place], [address] Potassium [Moles/Vol] 3.7 mmol/L Normal 3.3-5.1 [facility] Comment on above: Order Comment: Call MD with results STAT Performed By: #### L 500.2500 ####[facility] [address] [place], [address] Sodium [Moles/Vol] 137 mmol/L Normal 133-145 [facility] Comment on above: Order Comment: Call MD with results STAT Performed By: #### L 500.2500 ####[facility] [address] [place], [address] Urea nitrogen [Mass/Vol] 7 mg/dL Normal 4-19 [facility] Comment on above: Order Comment: Call MD with results STAT Performed By: #### L 500.2500 ####[facility] [address] [place], [address] Bedside Glucoseon 02-19-2025 FINGERSTICK GLU 141 mg/dL High 74-106 [facility] Comment on above: Result Comment: EDGAR GEMENT OF PATIENT CARE PER NURSING PROTOCOL Performed By: #### L 501.080 ####[facility] [address] [place], [address] FINGERSTICK GLU 222 mg/dL High 74-106 [facility] Comment on above: Result Comment: EDGAR GEMENT OF PATIENT CARE PER NURSING PROTOCOL Performed By: #### L 501.080 ####[facility] [address] [place], [address] FINGERSTICK GLU 242 mg/dL High 74-106 [facility] Comment on above: Result Comment: EDGAR GEMENT OF PATIENT CARE PER NURSING PROTOCOL Performed By: #### L 501.080 ####[facility] [address] [place], [address] FINGERSTICK GLU 146 mg/dL High 74-106 [facility] Comment on above: Result Comment: EDGAR GEMENT OF PATIENT CARE PER NURSING PROTOCOL Performed By: #### L 501.080 ####[facility] [address] [place], [address] FINGERSTICK GLU 59 mg/dL Low 74-106 [facility] Comment on above: Result Comment: EDGAR GEMENT OF PATIENT CARE PER NURSING PROTOCOL Performed By: #### L 501.080 ####[facility] [address] [place], [address] FINGERSTICK GLU 93 mg/dL Normal 74-106 [facility] Comment on above: Result Comment: EDGAR GEMENT OF PATIENT CARE PER NURSING PROTOCOL Performed By: #### L 501.080 ####[facility] [address] [place], [address] FINGERSTICK GLU 143 mg/dL High 74-106 [facility] Comment on above: Result Comment: EDGAR GEMENT OF PATIENT CARE PER NURSING PROTOCOL Performed By: #### L 501.080 ####[facility] [address] [place], [address] FINGERSTICK GLU 59 mg/dL Low 74-106 [facility] Comment on above: Result Comment: EDGAR GEMENT OF PATIENT CARE PER NURSING PROTOCOL Performed By: #### L 501.080 ####[facility] [address] [place], [address] FINGERSTICK GLU 76 mg/dL Normal 74-106 [facility] Comment on above: Result Comment: EDGAR GEMENT OF PATIENT CARE PER NURSING PROTOCOL Performed By: #### L 501.080 ####[facility] [address] [place], [address] FINGERSTICK GLU 89 mg/dL Normal 74-106 [facility] Comment on above: Result Comment: EDGAR GEMENT OF PATIENT CARE PER NURSING PROTOCOL Performed By: #### L 501.080 ####[facility] [address] [place], [address] FINGERSTICK GLU 118 mg/dL High 74-106 [facility] Comment on above: Result Comment: EDGAR GEMENT OF PATIENT CARE PER NURSING PROTOCOL Performed By: #### L 501.080 ####[facility] [address] [place], [address] FINGERSTICK GLU 111 mg/dL High 74-106 [facility] Comment on above: Result Comment: EDGAR GEMENT OF PATIENT CARE PER NURSING PROTOCOL Performed By: #### L 501.080 ####[facility] [address] [place], [address] FINGERSTICK GLU 123 mg/dL High 74-106 [facility] Comment on above: Result Comment: EDGAR GEMENT OF PATIENT CARE PER NURSING PROTOCOL Performed By: #### L 501.080 ####[facility] [address] [place], [address] CBC W/Diff, Automatedon 06-2 -2024 Absolute Lymph 1.08 X10 3/uL Normal 0.83-4.51 [facility] Comment on above: Performed By: #### L 100.0100, L501.5200, L500.2500 ####[facility] [address] [place], [address] Absolute Neut 18.3 X10 3/uL High 2.0-7.7 [facility] Comment on above: Performed By: #### L 100.0100, L501.5200, L500.2500 ####[facility] [address] [place], [address] Basophils/100 WBC (Bld) 0.2 % Normal 0-1 [facility] Comment on above: Performed By: #### L 100.0100, L501.5200, L500.2500 ####[facility] [address] [place], [address] Eosinophils/100 WBC (Bld) 0.0 % Normal 0-5 [facility] Comment on above: Performed By: #### L 100.0100, L501.5200, L500.2500 ####[facility] [address] [place], [address] Erythrocyte distribution width (RBC) [Ratio] 13.4 % Normal 11.6-14.6 [facility] Comment on above: Performed By: #### L 100.0100, L501.5200, L500.2500 ####[facility] [address] [place], [address] Hematocrit (Bld) [Volume fraction] 35.4 % Low 37-47 [facility] Comment on above: Performed By: #### L 100.0100, L501.5200, L500.2500 ####[facility] [address] [place], [address] Hemoglobin (Bld) [Mass/Vol] 11.8 g/dL Low 12.0-15.0 [facility] Comment on above: Performed By: #### L 100.0100, L501.5200, L500.2500 ####[facility] [address] [place], [address] IG% 1.000 High 0.0-0.9 [facility] Comment on above: Result Comment: IG% - Immature Granulocytes (promyelocytes, myelocytes andmetamyelocytes) > 1% indicates that a LEFT SHIFT is Present. Performed By: #### L 100.0100, L501.5200, L500.2500 ####[facility] [address] [place], [address] Lymphocytes/100 WBC (Bld) 5.3 % Low 19-41 [facility] Comment on above: Performed By: #### L 100.0100, L501.5200, L500.2500 ####[facility] [address] [place], [address] MCH (RBC) [Entitic mass] 29.7 pg Normal 27.0-32.0 [facility] Comment on above: Performed By: #### L 100.0100, L501.5200, L500.2500 ####[facility] [address] [place], [address] MCHC (RBC) [Mass/Vol] 33.3 g/dL Normal 32-36 [facility] Comment on above: Performed By: #### L 100.0100, L501.5200, L500.2500 ####[facility] [address] [place], [address] MCV (RBC) [Entitic vol] 89.2 fL Normal 81-99 [facility] Comment on above: Performed By: #### L 100.0100, L501.5200, L500.2500 ####[facility] [address] [place], [address] Monocytes/100 WBC (Bld) 4.1 % Normal 0-10 [facility] Comment on above: Performed By: #### L 100.0100, L501.5200, L500.2500 ####[facility] [address] [place], [address] Neutrophils/100 WBC (Bld) 89.4 % High 47-70 [facility] Comment on above: Performed By: #### L 100.0100, L501.5200, L500.2500 ####[facility] [address] [place], [address] Nucleated RBC (Bld) [#/Vol] 0 10*3/uL Normal 0-5 [facility] Comment on above: Performed By: #### L 100.0100, L501.5200, L500.2500 ####[facility] [address] [place], [address] Platelet mean volume (Bld) [Entitic vol] 11.5 fL Normal 6.2-12.0 [facility] Comment on above: Performed By: #### L 100.0100, L501.5200, L500.2500 ####[facility] [address] [place], [address] Platelets (Bld) [#/Vol] 188 10*3/uL Normal 150-450 [facility] Comment on above: Performed By: #### L 100.0100, L501.5200, L500.2500 ####[facility] [address] [place], [address] RBC (Bld) [#/Vol] 3.97 10*6/uL Low 4.2-5.4 [facility] Comment on above: Performed By: #### L 100.0100, L501.5200, L500.2500 ####[facility] [address] [place], [address] RDW SD 43.9 fl Normal 35.1-43.9 [facility] Comment on above: Performed By: #### L 100.0100, L501.5200, L500.2500 ####[facility] [address] [place], [address] WBC (Bld) [#/Vol] 20.5 10*3/uL High 4.4-11.0 [facility] Comment on above: Performed By: #### L 100.0100, L501.5200, L500.2500 ####[facility] [address] [place], [address] Magnesiumon 02-19-2025 Magnesium [Mass/Vol] 2.9 mg/dL High 1.5-2.2 [facility] Comment on above: Performed By: #### L 100.0100, L501.5200, L500.2500 ####[facility] [address] [place], [address] 12 Lead EKGon 02-18-2025 12 Lead EKG Normal [facility] Basic Metabolic Profile (BMP )on 02-18-2025 BUN/CRE 16.4 RATIO Normal 10-20 [facility] Comment on above: Order Comment: Call MD with results STAT Performed By: #### L 500.2500 ####[facility] [address] [place], [address] Calcium [Mass/Vol] 7.8 mg/dL Normal 7.6-11.0 [facility] Comment on above: Order Comment: Call MD with results STAT Performed By: #### L 500.2500 ####[facility] [address] [place], [address] Chloride [Moles/Vol] 107 mmol/L Normal 98-108 [facility] Comment on above: Order Comment: Call MD with results STAT Performed By: #### L 500.2500 ####[facility] [address] [place], [address] CO2 [Moles/Vol] 17.2 mmol/L Low 21.0-32.0 [facility] Comment on above: Order Comment: Call MD with results STAT Performed By: #### L 500.2500 ####[facility] [address] [place], [address] Creatinine [Mass/Vol] 0.57 mg/dL Low 0.70-1.20 [facility] Comment on above: Order Comment: Call MD with results STAT Performed By: #### L 500.2500 ####[facility] [address] [place], [address] ECRCL 150.82 ml/min Normal 50-250 [facility] Comment on above: Order Comment: Call MD with results STAT Performed By: #### L 500.2500 ####[facility] [address] [place], [address] GAP 12 Normal 5-15 [facility] Comment on above: Order Comment: Call MD with results STAT Performed By: #### L 500.2500 ####[facility] [address] [place], [address] GFR/1.73 sq M.predicted among non-blacks MDRD (S/P/Bld) [Vol rate/Area] 125 mL/min/{1.73_m2} Normal >60 [facility] Comment on above: Order Comment: Call MD with results STAT Result Comment: mL/m in/1.73m2 CKD-EPI Creatinine Equation (2020) Performed By: #### L 500.2500 ####[facility] [address] [place], [address] Glucose [Mass/Vol] 111 mg/dL High 70-99 [facility] Comment on above: Order Comment: Call MD with results STAT Performed By: #### L 500.2500 ####[facility] [address] [place], [address] Potassium [Moles/Vol] 3.9 mmol/L Normal 3.3-5.1 [facility] Comment on above: Order Comment: Call MD with results STAT Performed By: #### L 500.2500 ####[facility] [address] [place], [address] Sodium [Moles/Vol] 137 mmol/L Normal 133-145 [facility] Comment on above: Order Comment: Call MD with results STAT Performed By: #### L 500.2500 ####[facility] [address] [place], [address] Urea nitrogen [Mass/Vol] 9 mg/dL Normal 4-19 [facility] Comment on above: Order Comment: Call MD with results STAT Performed By: #### L 500.2500 ####[facility] [address] [place], [address] Bedside Glucoseon 02-18-2025 FINGERSTICK GLU 125 mg/dL High 74-106 [facility] Comment on above: Result Comment: EDGAR GEMENT OF PATIENT CARE PER NURSING PROTOCOL Performed By: #### L 501.080 ####[facility] [address] [place], [address] FINGERSTICK GLU 121 mg/dL High 74-106 [facility] Comment on above: Result Comment: EDGAR GEMENT OF PATIENT CARE PER NURSING PROTOCOL Performed By: #### L 501.080 ####[facility] [address] [place], [address] FINGERSTICK GLU 93 mg/dL Normal 74-106 [facility] [facility] Comment on above: Result Comment: EDGAR GEMENT OF PATIENT CARE PER NURSING PROTOCOL Performed By: #### L 501.080 ####[facility] [address] [place], [address] FINGERSTICK GLU 97 mg/dL Normal 74-106 [facility] Comment on above: Result Comment: EGDAR GEMENT OF PATIENT CARE PER NURSING PROTOCOL Performed By: #### L 501.080 ####[facility] [address] [place], [address] FINGERSTICK GLU 144 mg/dL High 74-106 [facility] Comment on above: Result Comment: EDGAR GEMENT OF PATIENT CARE PER NURSING PROTOCOL Performed By: #### L 501.080 ####[facility] [address] [place], [address] FINGERSTICK GLU 265 mg/dL High 74-106 [facility] Comment on above: Result Comment: EDGAR GEMENT OF PATIENT CARE PER NURSING PROTOCOL Performed By: #### L 501.080 ####[facility] [address] [place], [address] Beta-Hydroxbytyrateon -- 2024 BETA-HYDROXYBUT 2.2 mmol/L High 0.0-0.3 [facility] Comment on above: Performed By: #### L 501.6901 ####[facility] [address] [place], [address] CBC W/Diff, Automatedon 06-2 Absolute Lymph 0.88 X10 3/uL Normal 0.83-4.51 [facility] Comment on above: Performed By: #### L 700.6800, L100.0100, L500.4050, L501.5200, L501.2450 ####[facility] [address] [place], [address] Absolute Neut 17.1 X10 3/uL High 2.0-7.7 [facility] Comment on above: Performed By: #### L 700.6800, L100.0100, L500.4050, L501.5200, L501.2450 ####[facility] [address] [place], [address] Basophils/100 WBC (Bld) 0.5 % Normal 0-1 [facility] Comment on above: Performed By: #### L 700.6800, L100.0100, L500.4050, L501.5200, L501.2450 ####[facility] [address] [place], [address] Eosinophils/100 WBC (Bld) 0.0 % Normal 0-5 [facility] Comment on above: Performed By: #### L 700.6800, L100.0100, L500.4050, L501.5200, L501.2450 ####[facility] [address] [place], [address] Erythrocyte distribution width (RBC) [Ratio] 13.3 % Normal 11.6-14.6 [facility] Comment on above: Performed By: #### L 700.6800, L100.0100, L500.4050, L501.5200, L501.2450 ####[facility] [address] [place], [address] Hematocrit (Bld) [Volume fraction] 41.2 % Normal 37-47 [facility] Comment on above: Performed By: #### L 700.6800, L100.0100, L500.4050, L501.5200, L501.2450 ####[facility] [address] [place], [address] Hemoglobin (Bld) [Mass/Vol] 13.7 g/dL Normal 12.0-15.0 [facility] Comment on above: Performed By: #### L 700.6800, L100.0100, L500.4050, L501.5200, L501.2450 ####[facility] [address] [place], [address] IG% 1.600 High 0.0-0.9 [facility] Comment on above: Result Comment: IG% - Immature Granulocytes (promyelocytes, myelocytes andmetamyelocytes) > 1% indicates that a LEFT SHIFT is Present. Performed By: #### L 700.6800, L100.0100, L500.4050, L501.5200, L501.2450 ####[facility] [address] [place], [address] Lymphocytes/100 WBC (Bld) 4.7 % Low 19-41 [facility] Comment on above: Performed By: #### L 700.6800, L100.0100, L500.4050, L501.5200, L501.2450 ####[facility] [address] [place], [address] MCH (RBC) [Entitic mass] 29.3 pg Normal 27.0-32.0 [facility] Comment on above: Performed By: #### L 700.6800, L100.0100, L500.4050, L501.5200, L501.2450 ####[facility] [address] [place], [address] MCHC (RBC) [Mass/Vol] 33.3 g/dL Normal 32-36 [facility] Comment on above: Performed By: #### L 700.6800, L100.0100, L500.4050, L501.5200, L501.2450 ####[facility] [address] [place], [address] MCV (RBC) [Entitic vol] 88.0 fL Normal 81-99 [facility] Comment on above: Performed By: #### L 700.6800, L100.0100, L500.4050, L501.5200, L501.2450 ####[facility] [address] [place], [address] Monocytes/100 WBC (Bld) 2.3 % Normal 0-10 [facility] Comment on above: Performed By: #### L 700.6800, L100.0100, L500.4050, L501.5200, L501.2450 ####[facility] [address] [place], [address] Neutrophils/100 WBC (Bld) 90.9 % High 47-70 [facility] Comment on above: Performed By: #### L 700.6800, L100.0100, L500.4050, L501.5200, L501.2450 ####[facility] [address] [place], [address] Nucleated RBC (Bld) [#/Vol] 0 10*3/uL Normal 0-5 [facility] Comment on above: Performed By: #### L 700.6800, L100.0100, L500.4050, L501.5200, L501.2450 ####[facility] [address] [place], [address] Platelet mean volume (Bld) [Entitic vol] 11.8 fL Normal 6.2-12.0 [facility] Comment on above: Performed By: #### L 700.6800, L100.0100, L500.4050, L501.5200, L501.2450 ####[facility] [address] [place], [address] Platelets (Bld) [#/Vol] 226 10*3/uL Normal 150-450 [facility] Comment on above: Performed By: #### L 700.6800, L100.0100, L500.4050, L501.5200, L501.2450 ####[facility] [address] [place], [address] RBC (Bld) [#/Vol] 4.68 10*6/uL Normal 4.2-5.4 [facility] Comment on above: Performed By: #### L 700.6800, L100.0100, L500.4050, L501.5200, L501.2450 ####[facility] [address] [place], [address] RDW SD 42.8 fl Normal 35.1-43.9 [facility] Comment on above: Performed By: #### L 700.6800, L100.0100, L500.4050, L501.5200, L501.2450 ####[facility] [address] [place], [address] WBC (Bld) [#/Vol] 18.8 10*3/uL High 4.4-11.0 [facility] Comment on above: Performed By: #### L 700.6800, L100.0100, L500.4050, L501.5200, L501.2450 ####[facility] [address] [place], [address] Comprehensive Metabolic Prof [facility] 02-18-2025 Albumin [Mass/Vol] 4.3 g/dL Normal 3.5-5.0 [facility] Comment on above: Performed By: #### L 700.6800, L100.0100, L500.4050, L501.5200, L501.2450 ####[facility] [address] [place], [address] Albumin/Globulin [Mass ratio] 1.7 {ratio} Normal 0.9-2.4 [facility] Comment on above: Performed By: #### L 700.6800, L100.0100, L500.4050, L501.5200, L501.2450 ####[facility] [address] [place], [address] ALK PHOS 85 U/L Normal 35-104 [facility] Comment on above: Performed By: #### L 700.6800, L100.0100, L500.4050, L501.5200, L501.2450 ####[facility] [address] [place], [address] ALT [Catalytic activity/Vol] 11 U/L Normal <=34 [facility] Comment on above: Performed By: #### L 700.6800, L100.0100, L500.4050, L501.5200, L501.2450 ####[facility] [address] [place], [address] AST [Catalytic activity/Vol] 17 U/L Normal <=31 [facility] Comment on above: Performed By: #### L 700.6800, L100.0100, L500.4050, L501.5200, L501.2450 ####[facility] [address] [place], [address] Bilirubin [Mass/Vol] 0.79 mg/dL Normal 0.00-1.30 [facility] Comment on above: Performed By: #### L 700.6800, L100.0100, L500.4050, L501.5200, L501.2450 ####[facility] [address] [place], [address] BUN/CRE 15.1 RATIO Normal 10-20 [facility] Comment on above: Performed By: #### L 700.6800, L100.0100, L500.4050, L501.5200, L501.2450 ####[facility] [address] [place], [address] Calcium [Mass/Vol] 9.6 mg/dL Normal 7.6-11.0 [facility] Comment on above: Performed By: #### L 700.6800, L100.0100, L500.4050, L501.5200, L501.2450 ####[facility] [address] [place], [address] Chloride [Moles/Vol] 101 mmol/L Normal 98-108 [facility] Comment on above: Performed By: #### L 700.6800, L100.0100, L500.4050, L501.5200, L501.2450 ####[facility] [address] [place], [address] CO2 [Moles/Vol] 15.4 mmol/L Low 21.0-32.0 [facility] Comment on above: Performed By: #### L 700.6800, L100.0100, L500.4050, L501.5200, L501.2450 ####[facility] [address] [place], [address] Creatinine [Mass/Vol] 0.73 mg/dL Normal 0.70-1.20 [facility] Comment on above: Performed By: #### L 700.6800, L100.0100, L500.4050, L501.5200, L501.2450 ####[facility] [address] [place], [address] GAP 20 High 5-15 [facility] Comment on above: Performed By: #### L 700.6800, L100.0100, L500.4050, L501.5200, L501.2450 ####[facility] [address] [place], [address] GFR/1.73 sq M.predicted among non-blacks MDRD (S/P/Bld) [Vol rate/Area] 114 mL/min/{1.73_m2} Normal >60 [facility] Comment on above: Result Comment: mL/m in/1.73m2 CKD-EPI Creatinine Equation (2020) Performed By: #### L 700.6800, L100.0100, L500.4050, L501.5200, L501.2450 ####[facility] [address] [place], [address] Globulin (S) [Mass/Vol] 2.6 g/dL Normal 2.2-4.2 [facility] Comment on above: Performed By: #### L 700.6800, L100.0100, L500.4050, L501.5200, L501.2450 ####[facility] [address] [place], [address] Glucose [Mass/Vol] 324 mg/dL High 70-99 [facility] Comment on above: Performed By: #### L 700.6800, L100.0100, L500.4050, L501.5200, L501.2450 ####[facility] [address] [place], [address] Potassium [Moles/Vol] 4.2 mmol/L Normal 3.3-5.1 [facility] Comment on above: Performed By: #### L 700.6800, L100.0100, L500.4050, L501.5200, L501.2450 ####[facility] [address] [place], [address] Sodium [Moles/Vol] 136 mmol/L Normal 133-145 [facility] Comment on above: Performed By: #### L 700.6800, L100.0100, L500.4050, L501.5200, L501.2450 ####[facility] [address] [place], [address] T PROT 6.9 g/dL Normal 5.9-8.4 [facility] Comment on above: Performed By: #### L 700.6800, L100.0100, L500.4050, L501.5200, L501.2450 ####[facility] [address] [place], [address] Urea nitrogen [Mass/Vol] 11 mg/dL Normal 4-19 [facility] Comment on above: Performed By: #### L 700.6800, L100.0100, L500.4050, L501.5200, L501.2450 ####[facility] [address] [place], [address] Emergency Department Summary on 02-18-2025 Emergency Department Summary Normal [facility] H AND P Exam - Hospitaliston 02-18-2025 H&P Exam - Hospitalist Normal [facility] Lipaseon 02-18-2025 Lipase [Catalytic activity/Vol] 9 U/L Low 13-75 [facility] Comment on above: Result Comment: Sulma schmitz note:LIPASE revised reference range effective 22.New Lipase methodology. Expected to produce lower valuesthan the previous assay method.NEW Reference Range: 13 - 75 U/L Performed By: #### L 700.6800, L100.0100, L500.4050, L501.5200, L501.2450 ####[facility] [address] [place], [address] Magnesiumon 02-18-2025 Magnesium [Mass/Vol] 1.5 mg/dL Normal 1.5-2.2 [facility] Comment on above: Performed By: #### L 700.6800, L100.0100, L500.4050, L501.5200, L501.2450 ####[facility] [address] [place], [address] ,Serum,hCG Quali.on 02-18-2025 HCG, SERUM QUAL Negative Normal [facility] Comment on above: Performed By: #### L 700.6800, L100.0100, L500.4050, L501.5200, L501.2450 ####[facility] [address] [place], [address] Urinalysis, Completeon 02-18 RBC 0-5 SEEN Normal 0-5 [facility] Comment on above: Order Comment: CLEAN CATCH Performed By: #### L 400.0001 ####[facility] [address] [place], [address] WBC 0-5 SEEN Normal 0-5 [facility] Comment on above: Order Comment: CLEAN CATCH Performed By: #### L 400.0001 ####[facility] [address] [place], [address] EPI,SQUAMOUS 5-10 SEEN Normal 5-10 [facility] Comment on above: Order Comment: CLEAN CATCH Performed By: #### L 400.0001 ####[facility] [address] [place], [address] BACTERIA 0 SEEN Normal None Seen [facility] Comment on above: Order Comment: CLEAN CATCH Performed By: #### L 400.0001 ####[facility] [address] [place], [address] Mucus Ql (Urine sed) 0 SEEN Normal [facility] Comment on above: Order Comment: CLEAN CATCH Performed By: #### L 400.0001 ####[facility] [address] [place], [address] Venous Blood Gason 5 Blood Gas Type ISABELLE Normal [facility] Comment on above: Performed By: #### L 9000.0810 ####[facility] [address] [place], [address] CO2 [Moles/Vol] 22 mmol/L Low 23-33 [facility] Comment on above: Performed By: #### L 9000.0810 ####[facility] [address] [place], [address] HCO3 (Bld) [Moles/Vol] 22 mmol/L Normal 22-26 [facility] Comment on above: Performed By: #### L 9000.0810 ####[facility] [address] [place], [address] O2 Delivery Dev Not entered Normal [facility] Comment on above: Performed By: #### L 9000.0810 ####[facility] [address] [place], [address] SITE Not entered Normal [facility] Comment on above: Performed By: #### L 9000.0810 ####[facility] [address] [place], [address] VBG BE -1 mmol/L Normal -1.0-3.5 [facility] Comment on above: Performed By: #### L 9000.0810 ####[facility] [address] [place], [address] VBG pCO2 26.5 mmHg Low 41-51 [facility] Comment on above: Performed By: #### L 9000.0810 ####[facility] [address] [place], [address] VBG pH 7.52 High 7.32-7.42 [facility] Comment on above: Performed By: #### L 9000.0810 ####[facility] [address] [place], [address] VBG PO2 29 mmHg Normal 25-40 [facility] Comment on above: Performed By: #### L 9000.0810 ####[facility] [address] [place], [address] VBG SO2 64 Normal 50-70 [facility] Comment on above: Performed By: #### L 9000.0810 ####[facility] [address] [place], [address] Hepatitis A AB, Totalon 06- HEPATITIS A,TOT Positive Abnormal Negative [facility] Comment on above: Order [...] HAVtotal antibody results to IgM (e.g., panel #[id number] HAVAntibody w/ Rfx).Performed at: [address] [id number] Director: Esteban Jin PhD, Phone: [phone] Performed By: #### L 300.3900, L100.0100, L3100.0460, L501.9520, L500.2500, L3890.6301, L500.3400, L3410.9992, L3100.0300, L3890.6102, L501.9985, L3890.6202 ####[facility] [address] [place], [address] Hepatitis B Core Ab Totalon 02-05-2025 HEP B CORE,TOT Negative Normal Negative [facility] Comment on above: Order Comment: KATHY CALDERON ORDERED BMP,LIVER,CBCD,PT/INR,TSH,HEBSAG,HECAB,HEAT,HEP B CORE, AND ELF.ANTONIA ORDERED CMP AND A1C Performed By: #### L 300.3900, L100.0100, L3100.0460, L501.9520, L500.2500, L3890.6301, L500.3400, L3410.9992, L3100.0300, L3890.6102, L501.9985, L3890.6202 ####[facility] [address] [place], [place], [id number] L3410.9992on 02-05-2025 [facility] Misc. COMMENT Normal . [facility] Comment on above: Order Comment: KATHY CALDERON ORDERED BMP,LIVER,CBCD,PT/INR,TSH,HEBSAG,HECAB,HEAT,HEP B CORE, AND ELF.ANTONIA ORDERED CMP AND [id number] Result Comment: Test Ordered: [id number] Enhanced Liver Fibrosis (ELF)ELF(TM) Score 8.11 BN [...] STELLAR trials. J Hepatol. 2020 Feb;73(1):26-39.Performed at: - [facility] [id number] Director: Brian Rouse MD, Phone: [phone] at: [facility] [address] [id number] Director: Esteban Jin PhD, Phone: [phone] Performed By: #### L 300.3900, L100.0100, L3100.0460, L501.9520, L500.2500, L3890.6301, L500.3400, L3410.9992, L3100.0300, L3890.6102, L501.9985, L3890.6202 ####[facility] [address] [place], [place], [id number] Basic Metabolic Profile (BMP )on 02-03-2025 BUN/CRE 12.4 RATIO Normal 10-20 [facility] Comment on above: Order Comment: KATHY CALDERON ORDERED BMP,LIVER,CBCD,PT/INR,TSH,HEBSAG,HECAB,HEAT,HEP B CORE, AND ELF.ANTONIA ORDERED CMP AND A1C Performed By: #### L 300.3900, L100.0100, L3100.0460, L501.9520, L500.2500, L3890.6301, L500.3400, L3410.9992, L3100.0300, L3890.6102, L501.9985, L3890.6202 ####[facility] [address] [place], [address] Calcium [Mass/Vol] 9.7 mg/dL Normal 7.6-11.0 [facility] Comment on above: Order Comment: KATHY CALDERON ORDERED BMP,LIVER,CBCD,PT/INR,TSH,HEBSAG,HECAB,HEAT,HEP B CORE, AND ELF.ANTONIA ORDERED CMP AND A1C Performed By: #### L 300.3900, L100.0100, L3100.0460, L501.9520, L500.2500, L3890.6301, L500.3400, L3410.9992, L3100.0300, L3890.6102, L501.9985, L3890.6202 ####[facility] [address] [place], [place], [phone] Chloride [Moles/Vol] 96 mmol/L Low 98-108 [facility] Comment on above: Order Comment: KATHY CALDERON ORDERED BMP,LIVER,CBCD,PT/INR,TSH,HEBSAG,HECAB,HEAT,HEP B CORE, AND ELF.ANTONIA ORDERED CMP AND A1C Performed By: #### L 300.3900, L100.0100, L3100.0460, L501.9520, L500.2500, L3890.6301, L500.3400, L3410.9992, L3100.0300, L3890.6102, L501.9985, L3890.6202 ####[facility] [address] [place], [address] CO2 [Moles/Vol] 22.5 mmol/L Normal 21.0-32.0 [facility] Comment on above: Order Comment: KATHY CALDERON ORDERED BMP,LIVER,CBCD,PT/INR,TSH,HEBSAG,HECAB,HEAT,HEP B CORE, AND ELF.ANTONIA ORDERED CMP AND A1C Performed By: #### L 300.3900, L100.0100, L3100.0460, L501.9520, L500.2500, L3890.6301, L500.3400, L3410.9992, L3100.0300, L3890.6102, L501.9985, L3890.6202 ####[facility] [address] [place], [place], [address] Creatinine [Mass/Vol] 0.78 mg/dL Normal 0.70-1.20 [facility] Comment on above: Order Comment: KATHY CALDERON ORDERED BMP,LIVER,CBCD,PT/INR,TSH,HEBSAG,HECAB,HEAT,HEP B CORE, AND ELF.ANTONIA ORDERED CMP AND A1C Performed By: #### L 300.3900, L100.0100, L3100.0460, L501.9520, L500.2500, L3890.6301, L500.3400, L3410.9992, L3100.0300, L3890.6102, L501.9985, L3890.6202 ####[facility] [address] [facility] [place], [place], [address] GAP 15 Normal 5-15 [facility] Comment on above: Order Comment: KATHY CALDERON ORDERED BMP,LIVER,CBCD,PT/INR,TSH,HEBSAG,HECAB,HEAT,HEP B CORE, AND ELF.[employer] CLERKDAYANA ORDERED CMP AND A1C Performed By: #### L 300.3900, L100.0100, L3100.0460, L501.9520, L500.2500, L3890.6301, L500.3400, L3410.9992, L3100.0300, L3890.6102, L501.9985, L3890.6202 ####[facility] [address] [facility]. [place], [place], [address] GFR/1.73 sq M.predicted among non-blacks MDRD (S/P/Bld) [Vol rate/Area] 106 mL/min/{1.73_m2} Normal >60 [facility] Comment on above: Order Comment: KATHY CALDERON ORDERED BMP,LIVER,CBCD,PT/INR,TSH,HEBSAG,HECAB,HEAT,HEP B CORE, AND ELF.ANTONIA ORDERED CMP AND A1C Result Comment: mL/m in/1.73m2 CKD-EPI Creatinine Equation (2020) Performed By: #### L 300.3900, L100.0100, L3100.0460, L501.9520, L500.2500, L3890.6301, L500.3400, L3410.9992, L3100.0300, L3890.6102, L501.9985, L3890.6202 ####[facility] [address] [place], [place], [id number] Glucose [Mass/Vol] 459 mg/dL Invalid Interpretation Code 70-99 [facility] Comment on above: Order Comment: KATHY CALDERON ORDERED BMP,LIVER,CBCD,PT/INR,TSH,HEBSAG,HECAB,HEAT,HEP B CORE, AND ELF.ANTONIA ORDERED CMP AND A1C Result Comment: Crit ical Result(s) Called at: by:??Results read back bysame.LEFT VOICEMAIL @ 1818 Performed By: #### L 300.3900, L100.0100, L3100.0460, L501.9520, L500.2500, L3890.6301, L500.3400, L3410.9992, L3100.0300, L3890.6102, L501.9985, L3890.6202 ####[facility] [address] [place], [place], [phone] Potassium [Moles/Vol] 4.7 mmol/L Normal 3.3-5.1 [facility] Comment on above: Order Comment: KATHY CALDERON ORDERED BMP,LIVER,CBCD,PT/INR,TSH,HEBSAG,HECAB,HEAT,HEP B CORE, AND ELF.ANTONIA ORDERED CMP AND A1C Performed By: #### L 300.3900, L100.0100, L3100.0460, L501.9520, L500.2500, L3890.6301, L500.3400, L3410.9992, L3100.0300, L3890.6102, L501.9985, L3890.6202 ####[facility] [address] [place], [place], [address] Sodium [Moles/Vol] 133 mmol/L Normal 133-145 [facility] Comment on above: Order Comment: KATHY CALDERON ORDERED BMP,LIVER,CBCD,PT/INR,TSH,HEBSAG,HECAB,HEAT,HEP B CORE, AND ELF.ANTONIA ORDERED CMP AND A1C Performed By: #### L 300.3900, L100.0100, L3100.0460, L501.9520, L500.2500, L3890.6301, L500.3400, L3410.9992, L3100.0300, L3890.6102, L501.9985, L3890.6202 ####[facility] [address] [place], [address] Urea nitrogen [Mass/Vol] 10 mg/dL Normal 4-19 [facility] Comment on above: Order Comment: KATHY CALDERON ORDERED BMP,LIVER,CBCD,PT/INR,TSH,HEBSAG,HECAB,HEAT,HEP B CORE, AND ELF.ANTONIA ORDERED CMP AND A1C Performed By: #### L 300.3900, L100.0100, L3100.0460, L501.9520, L500.2500, L3890.6301, L500.3400, L3410.9992, L3100.0300, L3890.6102, L501.9985, L3890.6202 ####[facility] [address] [place], [address] CBC W/Diff, Automatedon 06-0 -2024 Absolute Lymph 1.69 X10 3/uL Normal 0.83-4.51 [facility] Comment on above: Order Comment: KATHY CALDERON ORDERED BMP,LIVER,CBCD,PT/INR,TSH,HEBSAG,HECAB,HEAT,HEP B CORE, AND ELF.ANTONIA ORDERED CMP AND A1C Performed By: #### L 300.3900, L100.0100, L3100.0460, L501.9520, L500.2500, L3890.6301, L500.3400, L3410.9992, L3100.0300, L3890.6102, L501.9985, L3890.6202 ####[facility] [address] [place], [place], [id number]) Absolute Neut 7.9 X10 3/uL High 2.0-7.7 [facility] Comment on above: Order Comment: KATHY CALDERON ORDERED BMP,LIVER,CBCD,PT/INR,TSH,HEBSAG,HECAB,HEAT,HEP B CORE, AND ELF.ANTONIA ORDERED CMP AND A1C Performed By: #### L 300.3900, L100.0100, L3100.0460, L501.9520, L500.2500, L3890.6301, L500.3400, L3410.9992, L3100.0300, L3890.6102, L501.9985, L3890.6202 ####[facility] [address] [place], [place], [phone] Basophils/100 WBC (Bld) 0.5 % Normal 0-1 [facility] Comment on above: Order Comment: KATHY CALDERON ORDERED BMP,LIVER,CBCD,PT/INR,TSH,HEBSAG,HECAB,HEAT,HEP B CORE, AND ELF.ANTONIA ORDERED CMP AND A1C Performed By: #### L 300.3900, L100.0100, L3100.0460, L501.9520, L500.2500, L3890.6301, L500.3400, L3410.9992, L3100.0300, L3890.6102, L501.9985, L3890.6202 ####[facility] [address] [place], [place], [phone]) Eosinophils/100 WBC (Bld) 0.5 % Normal 0-5 [facility] Comment on above: Order Comment: KATHY CALDERON ORDERED BMP,LIVER,CBCD,PT/INR,TSH,HEBSAG,HECAB,HEAT,HEP B CORE, AND ELF.ANTONIA ORDERED CMP AND A1C Performed By: #### L 300.3900, L100.0100, L3100.0460, L501.9520, L500.2500, L3890.6301, L500.3400, L3410.9992, L3100.0300, L3890.6102, L501.9985, L3890.6202 ####[facility] [address] [place], [address] Erythrocyte distribution width (RBC) [Ratio] 13.4 % Normal 11.6-14.6 [facility] Comment on above: Order Comment: KATHY CALDERON ORDERED BMP,LIVER,CBCD,PT/INR,TSH,HEBSAG,HECAB,HEAT,HEP B CORE, AND ELF.ANTONIA ORDERED CMP AND A1C Performed By: #### L 300.3900, L100.0100, L3100.0460, L501.9520, L500.2500, L3890.6301, L500.3400, L3410.9992, L3100.0300, L3890.6102, L501.9985, L3890.6202 ####[facility] [address] [place], [place], [id number] Hematocrit (Bld) [Volume fraction] 40.5 % Normal 37-47 [facility] Comment on above: Order Comment: KATHY CALDERON ORDERED BMP,LIVER,CBCD,PT/INR,TSH,HEBSAG,HECAB,HEAT,HEP B CORE, AND ELF.ANTONIA ORDERED CMP AND A1C Performed By: #### L 300.3900, L100.0100, L3100.0460, L501.9520, L500.2500, L3890.6301, L500.3400, L3410.9992, L3100.0300, L3890.6102, L501.9985, L3890.6202 ####[facility] [address] [place], [place], [id number] Hemoglobin (Bld) [Mass/Vol] 13.5 g/dL Normal 12.0-15.0 [facility] Comment on above: Order Comment: KATHY CALDERON ORDERED BMP,LIVER,CBCD,PT/INR,TSH,HEBSAG,HECAB,HEAT,HEP B CORE, AND ELF.ANTONIA ORDERED CMP AND A1C Performed By: #### L 300.3900, L100.0100, L3100.0460, L501.9520, L500.2500, L3890.6301, L500.3400, L3410.9992, L3100.0300, L3890.6102, L501.9985, L3890.6202 ####[facility] [address] [place], [place], [phone] IG% 1.500 High 0.0-0.9 [facility] Comment on above: Order Comment: KATHY CALDERON ORDERED BMP,LIVER,CBCD,PT/INR,TSH,HEBSAG,HECAB,HEAT,HEP B CORE, AND ELF.ANTONIA ORDERED CMP AND A1C Result Comment: IG% - Immature Granulocytes (promyelocytes, myelocytes andmetamyelocytes) > 1% indicates that a LEFT SHIFT is Present. Performed By: #### L 300.3900, L100.0100, L3100.0460, L501.9520, L500.2500, L3890.6301, L500.3400, L3410.9992, L3100.0300, L3890.6102, L501.9985, L3890.6202 ####[facility] [address] [facility] [place], [address] Lymphocytes/100 WBC (Bld) 16.3 % Low 19-41 [facility] Comment on above: Order Comment: KATHY CALDERON ORDERED BMP,LIVER,CBCD,PT/INR,TSH,HEBSAG,HECAB,HEAT,HEP B CORE, AND ELF.ANTONIA ORDERED CMP AND A1C Performed By: #### L 300.3900, L100.0100, L3100.0460, L501.9520, L500.2500, L3890.6301, L500.3400, L3410.9992, L3100.0300, L3890.6102, L501.9985, L3890.6202 ####[facility] [address] [facility] [place], [address] MCH (RBC) [Entitic mass] 29.7 pg Normal 27.0-32.0 [facility] Comment on above: Order Comment: KATHY CALDERON ORDERED BMP,LIVER,CBCD,PT/INR,TSH,HEBSAG,HECAB,HEAT,HEP B CORE, AND ELF.ANTONIA ORDERED CMP AND A1C Performed By: #### L 300.3900, L100.0100, L3100.0460, L501.9520, L500.2500, L3890.6301, L500.3400, L3410.9992, L3100.0300, L3890.6102, L501.9985, L3890.6202 ####[facility] [address] [facility] [place], [address] MCHC (RBC) [Mass/Vol] 33.3 g/dL Normal 32-36 [facility] Comment on above: Order Comment: KATHY CALDERON ORDERED BMP,LIVER,CBCD,PT/INR,TSH,HEBSAG,HECAB,HEAT,HEP B CORE, AND ELF.ANTONIA ORDERED CMP AND A1C Performed By: #### L 300.3900, L100.0100, L3100.0460, L501.9520, L500.2500, L3890.6301, L500.3400, L3410.9992, L3100.0300, L3890.6102, L501.9985, L3890.6202 ####[facility] [address] [place], [address] MCV (RBC) [Entitic vol] 89.0 fL Normal 81-99 [facility] Comment on above: Order Comment: KATHY CALDERON ORDERED BMP,LIVER,CBCD,PT/INR,TSH,HEBSAG,HECAB,HEAT,HEP B CORE, AND ELF.ANTONIA ORDERED CMP AND A1C Performed By: #### L 300.3900, L100.0100, L3100.0460, L501.9520, L500.2500, L3890.6301, L500.3400, L3410.9992, L3100.0300, L3890.6102, L501.9985, L3890.6202 ####[facility] [address] [place], [address] Monocytes/100 WBC (Bld) 4.8 % Normal 0-10 [facility] Comment on above: Order Comment: KATHY CALDERON ORDERED BMP,LIVER,CBCD,PT/INR,TSH,HEBSAG,HECAB,HEAT,HEP B CORE, AND ELF.ANTONIA ORDERED CMP AND A1C Performed By: #### L 300.3900, L100.0100, L3100.0460, L501.9520, L500.2500, L3890.6301, L500.3400, L3410.9992, L3100.0300, L3890.6102, L501.9985, L3890.6202 ####[facility] [address] [place], [address] Neutrophils/100 WBC (Bld) 76.4 % High 47-70 [facility] Comment on above: Order Comment: KATHY CALDERON ORDERED BMP,LIVER,CBCD,PT/INR,TSH,HEBSAG,HECAB,HEAT,HEP B CORE, AND ELF.ANTONIA ORDERED CMP AND A1C Performed By: #### L 300.3900, L100.0100, L3100.0460, L501.9520, L500.2500, L3890.6301, L500.3400, L3410.9992, L3100.0300, L3890.6102, L501.9985, L3890.6202 ####[facility] [address] [place], [address] Nucleated RBC (Bld) [#/Vol] 0 10*3/uL Normal 0-5 [facility] Comment on above: Order Comment: KATHY CALDERON ORDERED BMP,LIVER,CBCD,PT/INR,TSH,HEBSAG,HECAB,HEAT,HEP B CORE, AND ELF.ANTONIA ORDERED CMP AND A1C Performed By: #### L 300.3900, L100.0100, L3100.0460, L501.9520, L500.2500, L3890.6301, L500.3400, L3410.9992, L3100.0300, L3890.6102, L501.9985, L3890.6202 ####[facility] [address] [place], [address] Platelet mean volume (Bld) [Entitic vol] 11.5 fL Normal 6.2-12.0 [facility] Comment on above: Order Comment: KATHY CALDERON ORDERED BMP,LIVER,CBCD,PT/INR,TSH,HEBSAG,HECAB,HEAT,HEP B CORE, AND ELF.ANTONIA ORDERED CMP AND A1C Performed By: #### L 300.3900, L100.0100, L3100.0460, L501.9520, L500.2500, L3890.6301, L500.3400, L3410.9992, L3100.0300, L3890.6102, L501.9985, L3890.6202 ####[facility] [address] [place], [place], [phone] Platelets (Bld) [#/Vol] 215 10*3/uL Normal 150-450 [facility] Comment on above: Order Comment: KATHY CALDERON ORDERED BMP,LIVER,CBCD,PT/INR,TSH,HEBSAG,HECAB,HEAT,HEP B CORE, AND ELF.ANTONIA ORDERED CMP AND A1C Performed By: #### L 300.3900, L100.0100, L3100.0460, L501.9520, L500.2500, L3890.6301, L500.3400, L3410.9992, L3100.0300, L3890.6102, L501.9985, L3890.6202 ####[facility] [address] [place], [place], [phone]) RBC (Bld) [#/Vol] 4.55 10*6/uL Normal 4.2-5.4 [facility] Comment on above: Order Comment: KATHY CALDERON ORDERED BMP,LIVER,CBCD,PT/INR,TSH,HEBSAG,HECAB,HEAT,HEP B CORE, AND ELF.ANTONIA ORDERED CMP AND A1C Performed By: #### L 300.3900, L100.0100, L3100.0460, L501.9520, L500.2500, L3890.6301, L500.3400, L3410.9992, L3100.0300, L3890.6102, L501.9985, L3890.6202 ####[facility] [address] [place], [place], [phone]) RDW SD 43.5 fl Normal 35.1-43.9 [facility] Comment on above: Order Comment: KATHY CALDERON ORDERED BMP,LIVER,CBCD,PT/INR,TSH,HEBSAG,HECAB,HEAT,HEP B CORE, AND ELF.ANTONIA ORDERED CMP AND A1C Performed By: #### L 300.3900, L100.0100, L3100.0460, L501.9520, L500.2500, L3890.6301, L500.3400, L3410.9992, L3100.0300, L3890.6102, L501.9985, L3890.6202 ####[facility] [address] [place], [address] WBC (Bld) [#/Vol] 10.4 10*3/uL Normal 4.4-11.0 [facility] Comment on above: Order Comment: KATHY CALDERON ORDERED BMP,LIVER,CBCD,PT/INR,TSH,HEBSAG,HECAB,HEAT,HEP B CORE, AND ELF.ANTONIA ORDERED CMP AND A1C Performed By: #### L 300.3900, L100.0100, L3100.0460, L501.9520, L500.2500, L3890.6301, L500.3400, L3410.9992, L3100.0300, L3890.6102, L501.9985, L3890.6202 ####[facility] [address] [place], [address] Hemoglobin A1con 02-03-2025 HbA1c (Bld) [Mass fraction] 10.9 % High <=5.6 [facility] Comment on above: Order Comment: KATHY CALDERON ORDERED BMP,LIVER,CBCD,PT/INR,TSH,HEBSAG,HECAB,HEAT,HEP B CORE, AND ELF.[employer]IPMENT [employer]ERK.AMOS ORDERED CMP AND A1C Result Comment: Norm al < 5.7 % Prediabetic 5.7 - 6.4 % Diabetic >or= 6.5 % Please note range changes. Performed By: #### L 300.3900, L100.0100, L3100.0460, L501.9520, L500.2500, L3890.6301, L500.3400, L3410.9992, L3100.0300, L3890.6102, L501.9985, L3890.6202 ####[facility] [address] [place], [address] Hepatitis B Surface Antibody on 02-03-2025 HEP B Surf Ab Non-Reactive Normal [facility] Comment on above: Order Comment: KATHY CALDERON ORDERED BMP,LIVER,CBCD,PT/INR,TSH,HEBSAG,HECAB,HEAT,HEP B CORE, AND ELF.ANTONIA ORDERED CMP AND A1C Result Comment: <8.5 mIU/mL: Non-Reactive8.5<= x <11.5 mIU/mL: Indeterminate>=11.5 mIU/mL: Reactive Non Reactive: Inconsistent with immunity less than <10 mIU/mL Reactive: Consistent with immunity greater than or equal to 10 mIU/mL Performed By: #### L 300.3900, L100.0100, L3100.0460, L501.9520, L500.2500, L3890.6301, L500.3400, L3410.9992, L3100.0300, L3890.6102, L501.9985, L3890.6202 ####[facility] [address] [place], [address] Hepatitis C Antibodyon 02-03 Hepatitis C Ab Non-Reactive Normal Nonreactive [facility] Comment on above: Order [...] testing: HCV Quant by PCR testing -HCVPCR #[id number] Non Reactive: < 0.8 Equivocal: >/= 0.8 to < 1.0 Reactive: >/= 1.0The [facility] requires that a reactive/equivocal HCV antibodyresult be sent out for confirmation. HCV Quant by PCRtesting. Performed By: #### L 300.3900, L100.0100, L3100.0460, L501.9520, L500.2500, L3890.6301, L500.3400, L3410.9992, L3100.0300, L3890.6102, L501.9985, L3890.6202 ####[facility] [address] [place], [address] L3890.6102on 02-03-2025 HEP B Surf Ag Non-Reactive Normal Nonreactive [facility] Comment on above: Order Comment: KATHY CALDERON ORDERED BMP,LIVER,CBCD,PT/INR,TSH,HEBSAG,HECAB,HEAT,HEP B CORE, AND ELF.ANTONIA ORDERED CMP AND A1C Result Comment: Reac tive: Presumptive evidence of HBV. Repeatedly reactivesamples must be confirmed using a neutralization test([employer] HBsAg Confirmatory Test)Non-Reactive: HBsAg not detected; does not exclude thepossibility of exposure to HBV Performed By: #### L 300.3900, L100.0100, L3100.0460, L501.9520, L500.2500, L3890.6301, L500.3400, L3410.9992, L3100.0300, L3890.6102, L501.9985, L3890.6202 ####[facility] [address] [facility] [place], [address] Liver Profileon 02-03-2025 Albumin [Mass/Vol] 4.2 g/dL Normal 3.5-5.0 [facility] Comment on above: Order Comment: KATHY CALDERON ORDERED BMP,LIVER,CBCD,PT/INR,TSH,HEBSAG,HECAB,HEAT,HEP B CORE, AND ELF.[facility] ORDERED CMP AND A1C Performed By: #### L 300.3900, L100.0100, L3100.0460, L501.9520, L500.2500, L3890.6301, L500.3400, L3410.9992, L3100.0300, L3890.6102, L501.9985, L3890.6202 ####[facility] [address] [place], [address] ALK PHOS 95 U/L Normal 35-104 [facility] Comment on above: Order Comment: KATHY CALDERON ORDERED BMP,LIVER,CBCD,PT/INR,TSH,HEBSAG,HECAB,HEAT,HEP B CORE, AND ELF.PROPERTY AND EQUIPMENT CLERK.[facility] ORDERED CMP AND A1C Performed By: #### L 300.3900, L100.0100, L3100.0460, L501.9520, L500.2500, L3890.6301, L500.3400, L3410.9992, L3100.0300, L3890.6102, L501.9985, L3890.6202 ####[facility] [address] [place], [address] ALT [Catalytic activity/Vol] 29 U/L Normal <=34 [facility] Comment on above: Order Comment: KATHY CALDERON ORDERED BMP,LIVER,CBCD,PT/INR,TSH,HEBSAG,HECAB,HEAT,HEP B CORE, AND ELF.PROPERTY AND EQUIPMENT CLERK.[facility] ORDERED CMP AND A1C Performed By: #### L 300.3900, L100.0100, L3100.0460, L501.9520, L500.2500, L3890.6301, L500.3400, L3410.9992, L3100.0300, L3890.6102, L501.9985, L3890.6202 ####[facility] [address] [place], [place], [phone] AST [Catalytic activity/Vol] 18 U/L Normal <=31 [facility] Comment on above: Order Comment: KATHY CALDERON ORDERED BMP,LIVER,CBCD,PT/INR,TSH,HEBSAG,HECAB,HEAT,HEP B CORE, AND ELF.ANTONIA ORDERED CMP AND A1C Performed By: #### L 300.3900, L100.0100, L3100.0460, L501.9520, L500.2500, L3890.6301, L500.3400, L3410.9992, L3100.0300, L3890.6102, L501.9985, L3890.6202 ####[facility] [address] [place], [place], [phone] Bilirubin [Mass/Vol] 0.30 mg/dL Normal 0.00-1.30 [facility] Comment on above: Order Comment: KATHY CALDERON ORDERED BMP,LIVER,CBCD,PT/INR,TSH,HEBSAG,HECAB,HEAT,HEP B CORE, AND ELF.ANTONIA ORDERED CMP AND A1C Performed By: #### L 300.3900, L100.0100, L3100.0460, L501.9520, L500.2500, L3890.6301, L500.3400, L3410.9992, L3100.0300, L3890.6102, L501.9985, L3890.6202 ####[facility] [address] [place], [place], [phone]) Bilirubin.direct [Mass/Vol] 0.13 mg/dL Normal 0.00-0.30 [facility] Comment on above: Order Comment: KATHY CALDERON ORDERED BMP,LIVER,CBCD,PT/INR,TSH,HEBSAG,HECAB,HEAT,HEP B CORE, AND ELF.ANTONIA ORDERED CMP AND A1C Performed By: #### L 300.3900, L100.0100, L3100.0460, L501.9520, L500.2500, L3890.6301, L500.3400, L3410.9992, L3100.0300, L3890.6102, L501.9985, L3890.6202 ####[facility] [address] [place], [address] Globulin (S) [Mass/Vol] 2.7 g/dL Normal 2.2-4.2 [facility] Comment on above: Order Comment: KATHY CALDERON ORDERED BMP,LIVER,CBCD,PT/INR,TSH,HEBSAG,HECAB,HEAT,HEP B CORE, AND ELF.ANTONIA ORDERED CMP AND A1C Performed By: #### L 300.3900, L100.0100, L3100.0460, L501.9520, L500.2500, L3890.6301, L500.3400, L3410.9992, L3100.0300, L3890.6102, L501.9985, L3890.6202 ####[facility] [address] [place], [address] T PROT 6.8 g/dL Normal 5.9-8.4 [facility] Comment on above: Order Comment: KATHY CALDERON ORDERED BMP,LIVER,CBCD,PT/INR,TSH,HEBSAG,HECAB,HEAT,HEP B CORE, AND ELF.ANTONIA ORDERED CMP AND A1C Performed By: #### L 300.3900, L100.0100, L3100.0460, L501.9520, L500.2500, L3890.6301, L500.3400, L3410.9992, L3100.0300, L3890.6102, L501.9985, L3890.6202 ####[facility] [address] [place], [address] Prothrombin Time w/INRon INR Coag (PPP) [Relative time] 0.9 {INR} Normal [facility] Comment on above: Order Comment: KATHY CALDERON ORDERED BMP,LIVER,CBCD,PT/INR,TSH,HEBSAG,HECAB,HEAT,HEP B CORE, AND ELF.ANTONIA ORDERED CMP AND A1C Performed By: #### L 300.3900, L100.0100, L3100.0460, L501.9520, L500.2500, L3890.6301, L500.3400, L3410.9992, L3100.0300, L3890.6102, L501.9985, L3890.6202 ####[facility] [address] [place], [place], [address] PT Coag (PPP) [Time] 11.9 s Normal 11.7-14.9 [facility] Comment on above: Order Comment: KATHY CALDERON ORDERED BMP,LIVER,CBCD,PT/INR,TSH,HEBSAG,HECAB,HEAT,HEP B CORE, AND ELF.ANTONIA ORDERED CMP AND A1C Performed By: #### L 300.3900, L100.0100, L3100.0460, L501.9520, L500.2500, L3890.6301, L500.3400, L3410.9992, L3100.0300, L3890.6102, L501.9985, L3890.6202 ####[facility] [address] [facility] [place], [place], [id number] Thyroid Stim Hormone (TSH)on 02-03-2025 TSH 1.140 uIU/mL Normal 0.300-4.200 [facility] Comment on above: Order Comment: KATHY CALDERON ORDERED BMP,LIVER,CBCD,PT/INR,TSH,HEBSAG,HECAB,HEAT,HEP B CORE, AND ELF.ANTONIA ORDERED CMP AND A1C Performed By: #### L 300.3900, L100.0100, L3100.0460, L501.9520, L500.2500, L3890.6301, L500.3400, L3410.9992, L3100.0300, L3890.6102, L501.9985, L3890.6202 ####[facility] [address] [place], [address] Basic Metabolic Profile (BMP )on 02-01-2025 BUN Normal 4-19 [facility] Comment on above: Result Comment: Canc elled via OM: Order cancelled - Patient discharged Performed By: #### L 500.2500, L100.0100 ####[facility] [address] [place], [address] BUN/CRE Normal 10-20 [facility] Comment on above: Result Comment: Canc elled via OM: Order cancelled - Patient discharged Performed By: #### L 500.2500, L100.0100 ####[facility] [address] [place], [address] Calcium Normal 7.6-11.0 [facility] Comment on above: Result Comment: Canc elled via OM: Order cancelled - Patient discharged Performed By: #### L 500.2500, L100.0100 ####[facility] [address] [place], [address] CL Normal 98-108 [facility] Comment on above: Result Comment: Canc elled via OM: Order cancelled - Patient discharged Performed By: #### L 500.2500, L100.0100 ####[facility] [address] [place], [address] CO2 Normal 21.0-32.0 [facility] Comment on above: Result Comment: Canc elled via OM: Order cancelled - Patient discharged Performed By: #### L 500.2500, L100.0100 ####[facility] [address] [place], [address] CREAT,SERUM Normal 0.70-1.20 [facility] Comment on above: Result Comment: Canc elled via OM: Order cancelled - Patient discharged Performed By: #### L 500.2500, L100.0100 ####[facility] [address] [place], [address] eGFR Normal >60 [facility] Comment on above: Result Comment: Canc elled via OM: Order cancelled - Patient discharged Performed By: #### L 500.2500, L100.0100 ####[facility] [address] [place], [address] GAP Normal 5-15 [facility] Comment on above: Result Comment: Canc elled via OM: Order cancelled - Patient discharged Performed By: #### L 500.2500, L100.0100 ####[facility] [address] [place], [address] GLU Normal 70-99 [facility] Comment on above: Result Comment: Canc elled via OM: Order cancelled - Patient discharged Performed By: #### L 500.2500, L100.0100 ####[facility] [address] [place], [address] Potassium Normal 3.3-5.1 [facility] Comment on above: Result Comment: Canc elled via OM: Order cancelled - Patient discharged Performed By: #### L 500.2500, L100.0100 ####[facility] [address] [place], [address] Basic Metabolic Profile (BMP) Normal 133-145 [facility] Comment on above: Result Comment: Canc elled via OM: Order cancelled - Patient discharged Performed By: #### L 500.2500, L100.0100 ####[facility] [address] [place], [address] CBC W/Diff, Automatedon 06-0 -2024 Absolute Neut Normal 2.0-7.7 [facility] Comment on above: Result Comment: Canc elled via OM: Order cancelled - Patient discharged Performed By: #### L 500.2500, L100.0100 ####[facility] [address] [place], [address] HCT Normal 37-47 [facility] Comment on above: Result Comment: Canc elled via OM: Order cancelled - Patient discharged Performed By: #### L 500.2500, L100.0100 ####[facility] [address] [place], [address] HGB Normal 12.0-15.0 [facility] Comment on above: Result Comment: Canc elled via OM: Order cancelled - Patient discharged Performed By: #### L 500.2500, L100.0100 ####[facility] [address] [place], [address] MCH Normal 27.0-32.0 [facility] Comment on above: Result Comment: Canc elled via OM: Order cancelled - Patient discharged Performed By: #### L 500.2500, L100.0100 ####[facility] [address] [place], [address] MCHC Normal 32-36 [facility] Comment on above: Result Comment: Canc elled via OM: Order cancelled - Patient discharged Performed By: #### L 500.2500, L100.0100 ####[facility] [address] [place], [address] MCV Normal 81-99 [facility] Comment on above: Result Comment: Canc elled via OM: Order cancelled - Patient discharged Performed By: #### L 500.2500, L100.0100 ####[facility] [address] [place], [address] NEUT% Normal 47-70 [facility] Comment on above: Result Comment: Canc elled via OM: Order cancelled - Patient discharged Performed By: #### L 500.2500, L100.0100 ####[facility] [address] [place], [address] PLT Normal 150-450 [facility] Comment on above: Result Comment: Canc elled via OM: Order cancelled - Patient discharged Performed By: #### L 500.2500, L100.0100 ####[facility] [address] [place], [address] RBC Normal 4.2-5.4 [facility] Comment on above: Result Comment: Canc elled via OM: Order cancelled - Patient discharged Performed By: #### L 500.2500, L100.0100 ####[facility] [address] [place], [address] RDW CV Normal 11.6-14.6 [facility] Comment on above: Result Comment: Canc elled via OM: Order cancelled - Patient discharged Performed By: #### L 500.2500, L100.0100 ####[facility] [address] [place], [address] RDW SD Normal 35.1-43.9 [facility] Comment on above: Result Comment: Canc elled via OM: Order cancelled - Patient discharged Performed By: #### L 500.2500, L100.0100 ####[facility] [address] [place], [address] WBC Normal 4.4-11.0 [facility] Comment on above: Result Comment: Canc elled via OM: Order cancelled - Patient discharged Performed By: #### L 500.2500, L100.0100 ####[facility] [address] [place], [address] Basic Metabolic Profile (BMP )on 01-31-2025 BUN Normal 4-19 [facility] Comment on above: Result Comment: Canc elled via OM: Order cancelled - Patient discharged Performed By: #### L 500.2500, L100.0100 ####[facility] [address] [place], [address] BUN/CRE Normal 10-20 [facility] Comment on above: Result Comment: Canc elled via OM: Order cancelled - Patient discharged Performed By: #### L 500.2500, L100.0100 ####[facility] [address] [place], [address] Calcium Normal 7.6-11.0 [facility] Comment on above: Result Comment: Canc elled via OM: Order cancelled - Patient discharged Performed By: #### L 500.2500, L100.0100 ####[facility] [facility] [address] [place], [address] CL Normal 98-108 [facility] Comment on above: Result Comment: Canc elled via OM: Order cancelled - Patient discharged Performed By: #### L 500.2500, L100.0100 ####[facility] [address] [place], [address] CO2 Normal 21.0-32.0 [facility] Comment on above: Result Comment: Canc elled via OM: Order cancelled - Patient discharged Performed By: #### L 500.2500, L100.0100 ####[facility] [address] [place], [address] CREAT,SERUM Normal 0.70-1.20 [facility] Comment on above: Result Comment: Canc elled via OM: Order cancelled - Patient discharged Performed By: #### L 500.2500, L100.0100 ####[facility] [address] [place], [address] eGFR Normal >60 [facility] Comment on above: Result Comment: Canc elled via OM: Order cancelled - Patient discharged Performed By: #### L 500.2500, L100.0100 ####[facility] [address] [place], [address] GAP Normal 5-15 [facility] Comment on above: Result Comment: Canc elled via OM: Order cancelled - Patient discharged Performed By: #### L 500.2500, L100.0100 ####[facility] [address] [place], [address] GLU Normal 70-99 [facility] Comment on above: Result Comment: Canc elled via OM: Order cancelled - Patient discharged Performed By: #### L 500.2500, L100.0100 ####[facility] [address] [place], [address] Potassium Normal 3.3-5.1 [facility] Comment on above: Result Comment: Canc elled via OM: Order cancelled - Patient discharged Performed By: #### L 500.2500, L100.0100 ####[facility] [address] [place], [address] Basic Metabolic Profile (BMP) Normal 133-145 [facility] Comment on above: Result Comment: Canc elled via OM: Order cancelled - Patient discharged Performed By: #### L 500.2500, L100.0100 ####[facility] [address] [place], [address] CBC W/Diff, Automatedon 06-0 6-2024 Absolute Neut Normal 2.0-7.7 [facility] Comment on above: Result Comment: Canc elled via OM: Order cancelled - Patient discharged Performed By: #### L 500.2500, L100.0100 ####[facility] [address] [place], [address] HCT Normal 37-47 [facility] Comment on above: Result Comment: Canc elled via OM: Order cancelled - Patient discharged Performed By: #### L 500.2500, L100.0100 ####[facility] [address] [place], [address] HGB Normal 12.0-15.0 [facility] Comment on above: Result Comment: Canc elled via OM: Order cancelled - Patient discharged Performed By: #### L 500.2500, L100.0100 ####[facility] [address] [place], [address] MCH Normal 27.0-32.0 [facility] Comment on above: Result Comment: Canc elled via OM: Order cancelled - Patient discharged Performed By: #### L 500.2500, L100.0100 ####[facility] [address] [place], [address] MCHC Normal 32-36 [facility] Comment on above: Result Comment: Canc elled via OM: Order cancelled - Patient discharged Performed By: #### L 500.2500, L100.0100 ####[facility] [address] [place], [address] MCV Normal 81-99 [facility] Comment on above: Result Comment: Canc elled via OM: Order cancelled - Patient discharged Performed By: #### L 500.2500, L100.0100 ####[facility] [address] [place], [address] NEUT% Normal 47-70 [facility] Comment on above: Result Comment: Canc elled via OM: Order cancelled - Patient discharged Performed By: #### L 500.2500, L100.0100 ####[facility] [address] [place], [address] PLT Normal 150-450 [facility] Comment on above: Result Comment: Canc elled via OM: Order cancelled - Patient discharged Performed By: #### L 500.2500, L100.0100 ####[facility] [address] [place], [address] RBC Normal 4.2-5.4 [facility] Comment on above: Result Comment: Canc elled via OM: Order cancelled - Patient discharged Performed By: #### L 500.2500, L100.0100 ####[facility] [address] [place], [address] RDW CV Normal 11.6-14.6 [facility] Comment on above: Result Comment: Canc elled via OM: Order cancelled - Patient discharged Performed By: #### L 500.2500, L100.0100 ####[facility] [address] [place], [address] RDW SD Normal 35.1-43.9 [facility] Comment on above: Result Comment: Canc elled via OM: Order cancelled - Patient discharged Performed By: #### L 500.2500, L100.0100 ####[facility] [address] [place], [address] WBC Normal 4.4-11.0 [facility] Comment on above: Result Comment: Canc elled via OM: Order cancelled - Patient discharged Performed By: #### L 500.2500, L100.0100 ####[facility] [address] [place], [address] Basic Metabolic Profile (BMP )on 01-30-2025 BUN Normal 4-19 [facility] Comment on above: Result Comment: Canc elled via OM: Order cancelled - Patient discharged Performed By: #### L 500.2500, L100.0100 ####[facility] [address] [place], [address] BUN/CRE Normal 10-20 [facility] Comment on above: Result Comment: Canc elled via OM: Order cancelled - Patient discharged Performed By: #### L 500.2500, L100.0100 ####[facility] [address] [place], [address] Calcium Normal 7.6-11.0 [facility] Comment on above: Result Comment: Canc elled via OM: Order cancelled - Patient discharged Performed By: #### L 500.2500, L100.0100 ####[facility] [address] [place], [address] CL Normal 98-108 [facility] Comment on above: Result Comment: Canc elled via OM: Order cancelled - Patient discharged Performed By: #### L 500.2500, L100.0100 ####[facility] [address] [place], [address] CO2 Normal 21.0-32.0 [facility] Comment on above: Result Comment: Canc elled via OM: Order cancelled - Patient discharged Performed By: #### L 500.2500, L100.0100 ####[facility] [address] [place], [address] CREAT,SERUM Normal 0.70-1.20 [facility] Comment on above: Result Comment: Canc elled via OM: Order cancelled - Patient discharged Performed By: #### L 500.2500, L100.0100 ####[facility] [address] [place], [address] eGFR Normal >60 [facility] Comment on above: Result Comment: Canc elled via OM: Order cancelled - Patient discharged Performed By: #### L 500.2500, L100.0100 ####[facility] [address] [place], [address] GAP Normal 5-15 [facility] Comment on above: Result Comment: Canc elled via OM: Order cancelled - Patient discharged Performed By: #### L 500.2500, L100.0100 ####[facility] [address] [place], [address] GLU Normal 70-99 [facility] Comment on above: Result Comment: Canc elled via OM: Order cancelled - Patient discharged Performed By: #### L 500.2500, L100.0100 ####[facility] [address] [place], [address] Potassium Normal 3.3-5.1 [facility] Comment on above: Result Comment: Canc elled via OM: Order cancelled - Patient discharged Performed By: #### L 500.2500, L100.0100 ####[facility] [address] [place], [address] Basic Metabolic Profile (BMP) Normal 133-145 [facility] Comment on above: Result Comment: Canc elled via OM: Order cancelled - Patient discharged Performed By: #### L 500.2500, L100.0100 ####[facility] [address] [place], [address] CBC W/Diff, Automatedon 06-0 5-2024 Absolute Neut Normal 2.0-7.7 [facility] Comment on above: Result Comment: Canc elled via OM: Order cancelled - Patient discharged Performed By: #### L 500.2500, L100.0100 ####[facility] [address] [place], [address] HCT Normal 37-47 [facility] Comment on above: Result Comment: Canc elled via OM: Order cancelled - Patient discharged Performed By: #### L 500.2500, L100.0100 ####[facility] [address] [place], [address] HGB Normal 12.0-15.0 [facility] Comment on above: Result Comment: Canc elled via OM: Order cancelled - Patient discharged Performed By: #### L 500.2500, L100.0100 ####[facility] [address] [place], [address] MCH Normal 27.0-32.0 [facility] Comment on above: Result Comment: Canc elled via OM: Order cancelled - Patient discharged Performed By: #### L 500.2500, L100.0100 ####[facility] [address] [place], [address] MCHC Normal 32-36 [facility] Comment on above: Result Comment: Canc elled via OM: Order cancelled - Patient discharged Performed By: #### L 500.2500, L100.0100 ####[facility] [address] [place], [address] MCV Normal 81-99 [facility] Comment on above: Result Comment: Canc elled via OM: Order cancelled - Patient discharged Performed By: #### L 500.2500, L100.0100 ####[facility] [address] [place], [address] NEUT% Normal 47-70 [facility] Comment on above: Result Comment: Canc elled via OM: Order cancelled - Patient discharged Performed By: #### L 500.2500, L100.0100 ####[facility] [address] [place], [address] PLT Normal 150-450 [facility] Comment on above: Result Comment: Canc elled via OM: Order cancelled - Patient discharged Performed By: #### L 500.2500, L100.0100 ####[facility] [address] [place], [address] RBC Normal 4.2-5.4 [facility] Comment on above: Result Comment: Canc elled via OM: Order cancelled - Patient discharged Performed By: #### L 500.2500, L100.0100 ####[facility] [address] [place], [address] RDW CV Normal 11.6-14.6 [facility] Comment on above: Result Comment: Canc elled via OM: Order cancelled - Patient discharged Performed By: #### L 500.2500, L100.0100 ####[facility] [address] [place], [address] RDW SD Normal 35.1-43.9 [facility] Comment on above: Result Comment: Canc elled via OM: Order cancelled - Patient discharged Performed By: #### L 500.2500, L100.0100 ####[facility] [address] [place], [address] WBC Normal 4.4-11.0 [facility] Comment on above: Result Comment: Canc elled via OM: Order cancelled - Patient discharged Performed By: #### L 500.2500, L100.0100 ####[facility] [address] [place], [address] Basic Metabolic Profile (BMP )on 01-29-2025 BUN Normal 4-19 [facility] Comment on above: Result Comment: Canc elled via OM: Order cancelled - Patient discharged Performed By: #### L 500.2500, L100.0100 ####[facility] [address] [place], [address] BUN/CRE Normal 10-20 [facility] Comment on above: Result Comment: Canc elled via OM: Order cancelled - Patient discharged Performed By: #### L 500.2500, L100.0100 ####[facility] [address] [place], [address] Calcium Normal 7.6-11.0 [facility] Comment on above: Result Comment: Canc elled via OM: Order cancelled - Patient discharged Performed By: #### L 500.2500, L100.0100 ####[facility] [address] [place], [address] CL Normal 98-108 [facility] Comment on above: Result Comment: Canc elled via OM: Order cancelled - Patient discharged Performed By: #### L 500.2500, L100.0100 ####[facility] [address] [place], [address] CO2 Normal 21.0-32.0 [facility] Comment on above: Result Comment: Canc elled via OM: Order cancelled - Patient discharged Performed By: #### L 500.2500, L100.0100 ####[facility] [address] [place], [address] CREAT,SERUM Normal 0.70-1.20 [facility] Comment on above: Result Comment: Canc elled via OM: Order cancelled - Patient discharged Performed By: #### L 500.2500, L100.0100 ####[facility] [address] [place], [address] eGFR Normal >60 [facility] Comment on above: Result Comment: Canc elled via OM: Order cancelled - Patient discharged Performed By: #### L 500.2500, L100.0100 ####[facility] [address] [place], [address] GAP Normal 5-15 [facility] Comment on above: Result Comment: Canc elled via OM: Order cancelled - Patient discharged Performed By: #### L 500.2500, L100.0100 ####[facility] [address] [place], [address] GLU Normal 70-99 [facility] Comment on above: Result Comment: Canc elled via OM: Order cancelled - Patient discharged Performed By: #### L 500.2500, L100.0100 ####[facility] [address] [place], [address] Potassium Normal 3.3-5.1 [facility] Comment on above: Result Comment: Canc elled via OM: Order cancelled - Patient discharged Performed By: #### L 500.2500, L100.0100 ####[facility] [address] [place], [address] Basic Metabolic Profile (BMP) Normal 133-145 [facility] Comment on above: Result Comment: Canc elled via OM: Order cancelled - Patient discharged Performed By: #### L 500.2500, L100.0100 ####[facility] [address] [place], [address] CBC W/Diff, Automatedon 06-0 Absolute Neut Normal 2.0-7.7 [facility] Comment on above: Result Comment: Canc elled via OM: Order cancelled - Patient discharged Performed By: #### L 500.2500, L100.0100 ####[facility] [address] [place], [address] HCT Normal 37-47 [facility] Comment on above: Result Comment: Canc elled via OM: Order cancelled - Patient discharged Performed By: #### L 500.2500, L100.0100 ####[facility] [address] [place], [address] HGB Normal 12.0-15.0 [facility] Comment on above: Result Comment: Canc elled via OM: Order cancelled - Patient discharged Performed By: #### L 500.2500, L100.0100 ####[facility] [address] [place], [address] MCH Normal 27.0-32.0 [facility] Comment on above: Result Comment: Canc elled via OM: Order cancelled - Patient discharged Performed By: #### L 500.2500, L100.0100 ####[facility] [address] [place], [address] MCHC Normal 32-36 [facility] Comment on above: Result Comment: Canc elled via OM: Order cancelled - Patient discharged Performed By: #### L 500.2500, L100.0100 ####[facility] [address] [place], [address] MCV Normal 81-99 [facility] Comment on above: Result Comment: Canc elled via OM: Order cancelled - Patient discharged Performed By: #### L 500.2500, L100.0100 ####[facility] [address] [place], [address] NEUT% Normal 47-70 [facility] Comment on above: Result Comment: Canc elled via OM: Order cancelled - Patient discharged Performed By: #### L 500.2500, L100.0100 ####[facility] [address] [place], [address] PLT Normal 150-450 [facility] Comment on above: Result Comment: Canc elled via OM: Order cancelled - Patient discharged Performed By: #### L 500.2500, L100.0100 ####[facility] [address] [place], [address] RBC Normal 4.2-5.4 [facility] Comment on above: Result Comment: Canc elled via OM: Order cancelled - Patient discharged Performed By: #### L 500.2500, L100.0100 ####[facility] [address] [place], [address] RDW CV Normal 11.6-14.6 [facility] Comment on above: Result Comment: Canc elled via OM: Order cancelled - Patient discharged Performed By: #### L 500.2500, L100.0100 ####[facility] [address] [place], [address] RDW SD Normal 35.1-43.9 [facility] Comment on above: Result Comment: Canc elled via OM: Order cancelled - Patient discharged Performed By: #### L 500.2500, L100.0100 ####[facility] [address] [place], [address] WBC Normal 4.4-11.0 [facility] Comment on above: Result Comment: Canc elled via OM: Order cancelled - Patient discharged Performed By: #### L 500.2500, L100.0100 ####[facility] [address] [place], [address] Basic Metabolic Profile (BMP )on 01-28-2025 BUN Normal 4-19 [facility] Comment on above: Result Comment: Canc elled via OM: Order cancelled - Patient discharged Performed By: #### L 500.2500, L100.0100 ####[facility] [address] [place], [address] BUN/CRE Normal 10-20 [facility] Comment on above: Result Comment: Canc elled via OM: Order cancelled - Patient discharged Performed By: #### L 500.2500, L100.0100 ####[facility] [address] [place], [address] Calcium Normal 7.6-11.0 [facility] Comment on above: Result Comment: Canc elled via OM: Order cancelled - Patient discharged Performed By: #### L 500.2500, L100.0100 ####[facility] [address] [place], [address] CL Normal 98-108 [facility] Comment on above: Result Comment: Canc elled via OM: Order cancelled - Patient discharged Performed By: #### L 500.2500, L100.0100 ####[facility] [address] [place], [address] CO2 Normal 21.0-32.0 [facility] Comment on above: Result Comment: Canc elled via OM: Order cancelled - Patient discharged Performed By: #### L 500.2500, L100.0100 ####[facility] [address] [place], [address] CREAT,SERUM Normal 0.70-1.20 [facility] Comment on above: Result Comment: Canc elled via OM: Order cancelled - Patient discharged Performed By: #### L 500.2500, L100.0100 ####[facility] [address] [place], [address] eGFR Normal >60 [facility] Comment on above: Result Comment: Canc elled via OM: Order cancelled - Patient discharged Performed By: #### L 500.2500, L100.0100 ####[facility] [address] [place], [address] GAP Normal 5-15 [facility] Comment on above: Result Comment: Canc elled via OM: Order cancelled - Patient discharged Performed By: #### L 500.2500, L100.0100 ####[facility] [address] [place], [address] GLU Normal 70-99 [facility] Comment on above: Result Comment: Canc elled via OM: Order cancelled - Patient discharged Performed By: #### L 500.2500, L100.0100 ####[facility] [address] [place], [address] Potassium Normal 3.3-5.1 [facility] Comment on above: Result Comment: Canc elled via OM: Order cancelled - Patient discharged Performed By: #### L 500.2500, L100.0100 ####[facility] [address] [place], [address] Basic Metabolic Profile (BMP) Normal 133-145 [facility] Comment on above: Result Comment: Canc elled via OM: Order cancelled - Patient discharged Performed By: #### L 500.2500, L100.0100 ####[facility] [address] [place], [address] CBC W/Diff, Automatedon 06-0 Absolute Neut Normal 2.0-7.7 [facility] Comment on above: Result Comment: Canc elled via OM: Order cancelled - Patient discharged Performed By: #### L 500.2500, L100.0100 ####[facility] [address] [place], [address] HCT Normal 37-47 [facility] Comment on above: Result Comment: Canc elled via OM: Order cancelled - Patient discharged Performed By: #### L 500.2500, L100.0100 ####[facility] [address] [place], [address] HGB Normal 12.0-15.0 [facility] Comment on above: Result Comment: Canc elled via OM: Order cancelled - Patient discharged Performed By: #### L 500.2500, L100.0100 ####[facility] [address] [place], [address] MCH Normal 27.0-32.0 [facility] Comment on above: Result Comment: Canc elled via OM: Order cancelled - Patient discharged Performed By: #### L 500.2500, L100.0100 ####[facility] [address] [place], [address] MCHC Normal 32-36 [facility] Comment on above: Result Comment: Canc elled via OM: Order cancelled - Patient discharged Performed By: #### L 500.2500, L100.0100 ####[facility] [address] [place], [address] MCV Normal 81-99 [facility] Comment on above: Result Comment: Canc elled via OM: Order cancelled - Patient discharged Performed By: #### L 500.2500, L100.0100 ####[facility] [address] [place], [address] NEUT% Normal 47-70 [facility] Comment on above: Result Comment: Canc elled via OM: Order cancelled - Patient discharged Performed By: #### L 500.2500, L100.0100 ####[facility] [address] [place], [address] PLT Normal 150-450 [facility] Comment on above: Result Comment: Canc elled via OM: Order cancelled - Patient discharged Performed By: #### L 500.2500, L100.0100 ####[facility] [address] [place], [address] RBC Normal 4.2-5.4 [facility] Comment on above: Result Comment: Canc elled via OM: Order cancelled - Patient discharged Performed By: #### L 500.2500, L100.0100 ####[facility] [address] [place], [address] RDW CV Normal 11.6-14.6 [facility] Comment on above: Result Comment: Canc elled via OM: Order cancelled - Patient discharged Performed By: #### L 500.2500, L100.0100 ####[facility] [address] [place], [address] RDW SD Normal 35.1-43.9 [facility] Comment on above: Result Comment: Canc elled via OM: Order cancelled - Patient discharged Performed By: #### L 500.2500, L100.0100 ####[facility] [address] [place], [address] WBC Normal 4.4-11.0 [facility] Comment on above: Result Comment: Canc elled via OM: Order cancelled - Patient discharged Performed By: #### L 500.2500, L100.0100 ####[facility] [address] [place], [address] Basic Metabolic Profile (BMP )on 01-27-2025 BUN Normal 4-19 [facility] Comment on above: Result Comment: Canc elled via OM: Order cancelled - Patient discharged Performed By: #### L 100.0100, L500.2500 ####[facility] [address] [place], [address] BUN/CRE Normal 10-20 [facility] [facility] Comment on above: Result Comment: Canc elled via OM: Order cancelled - Patient discharged Performed By: #### L 100.0100, L500.2500 ####[facility] [address] [place], [address] Calcium Normal 7.6-11.0 [facility] Comment on above: Result Comment: Canc elled via OM: Order cancelled - Patient discharged Performed By: #### L 100.0100, L500.2500 ####[facility] [address] [place], [address] CL Normal 98-108 [facility] Comment on above: Result Comment: Canc elled via OM: Order cancelled - Patient discharged Performed By: #### L 100.0100, L500.2500 ####[facility] [address] [place], [address] CO2 Normal 21.0-32.0 [facility] Comment on above: Result Comment: Canc elled via OM: Order cancelled - Patient discharged Performed By: #### L 100.0100, L500.2500 ####[facility] [address] [place], [address] CREAT,SERUM Normal 0.70-1.20 [facility] Comment on above: Result Comment: Canc elled via OM: Order cancelled - Patient discharged Performed By: #### L 100.0100, L500.2500 ####[facility] [address] [place], [address] eGFR Normal >60 [facility] Comment on above: Result Comment: Canc elled via OM: Order cancelled - Patient discharged Performed By: #### L 100.0100, L500.2500 ####[facility] [address] [place], [address] GAP Normal 5-15 [facility] Comment on above: Result Comment: Canc elled via OM: Order cancelled - Patient discharged Performed By: #### L 100.0100, L500.2500 ####[facility] [address] [place], [address] GLU Normal 70-99 [facility] Comment on above: Result Comment: Canc elled via OM: Order cancelled - Patient discharged Performed By: #### L 100.0100, L500.2500 ####[facility] [address] [place], [address] Potassium Normal 3.3-5.1 [facility] Comment on above: Result Comment: Canc elled via OM: Order cancelled - Patient discharged Performed By: #### L 100.0100, L500.2500 ####[facility] [address] [place], [address] Basic Metabolic Profile (BMP) Normal 133-145 [facility] Comment on above: Result Comment: Canc elled via OM: Order cancelled - Patient discharged Performed By: #### L 100.0100, L500.2500 ####[facility] [address] [place], [address] Bedside Glucoseon 01-27-2025 FINGERSTICK GLU 350 mg/dL High 74-106 [facility] Comment on above: Result Comment: EDGAR GEMENT OF PATIENT CARE PER NURSING PROTOCOL Performed By: #### L 501.080 ####[facility] [address] [place], [address] FINGERSTICK GLU 322 mg/dL High 74-106 [facility] Comment on above: Result Comment: EDGAR GEMENT OF PATIENT CARE PER NURSING PROTOCOL Performed By: #### L 501.080 ####[facility] [address] [place], [address] FINGERSTICK GLU 340 mg/dL High 74-106 [facility] Comment on above: Result Comment: EDGAR GEMENT OF PATIENT CARE PER NURSING PROTOCOL Performed By: #### L 501.080 ####[facility] [address] [place], [address] CBC W/Diff, Automatedon 06-0 Absolute Neut Normal 2.0-7.7 [facility] Comment on above: Result Comment: Canc elled via OM: Order cancelled - Patient discharged Performed By: #### L 100.0100, L500.2500 ####[facility] [address] [place], [address] HCT Normal 37-47 [facility] Comment on above: Result Comment: Canc elled via OM: Order cancelled - Patient discharged Performed By: #### L 100.0100, L500.2500 ####[facility] [address] [place], [address] HGB Normal 12.0-15.0 [facility] Comment on above: Result Comment: Canc elled via OM: Order cancelled - Patient discharged Performed By: #### L 100.0100, L500.2500 ####[facility] [address] [place], [address] MCH Normal 27.0-32.0 [facility] Comment on above: Result Comment: Canc elled via OM: Order cancelled - Patient discharged Performed By: #### L 100.0100, L500.2500 ####[facility] [address] [place], [address] MCHC Normal 32-36 [facility] Comment on above: Result Comment: Canc elled via OM: Order cancelled - Patient discharged Performed By: #### L 100.0100, L500.2500 ####[facility] [address] [place], [address] MCV Normal 81-99 [facility] Comment on above: Result Comment: Canc elled via OM: Order cancelled - Patient discharged Performed By: #### L 100.0100, L500.2500 ####[facility] [address] [place], [address] NEUT% Normal 47-70 [facility] Comment on above: Result Comment: Canc elled via OM: Order cancelled - Patient discharged Performed By: #### L 100.0100, L500.2500 ####[facility] [address] [place], [address] PLT Normal 150-450 [facility] Comment on above: Result Comment: Canc elled via OM: Order cancelled - Patient discharged Performed By: #### L 100.0100, L500.2500 ####[facility] [address] [place], [address] RBC Normal 4.2-5.4 [facility] Comment on above: Result Comment: Canc elled via OM: Order cancelled - Patient discharged Performed By: #### L 100.0100, L500.2500 ####[facility] [address] [place], [address] RDW CV Normal 11.6-14.6 [facility] Comment on above: Result Comment: Canc elled via OM: Order cancelled - Patient discharged Performed By: #### L 100.0100, L500.2500 ####[facility] [address] [place], [address] RDW SD Normal 35.1-43.9 [facility] Comment on above: Result Comment: Canc elled via OM: Order cancelled - Patient discharged Performed By: #### L 100.0100, L500.2500 ####[facility] [address] [place], [address] WBC Normal 4.4-11.0 [facility] Comment on above: Result Comment: Canc elled via OM: Order cancelled - Patient discharged Performed By: #### L 100.0100, L500.2500 ####[facility] [address] [place], [address] Office Visiton 01-27-2025 Follow-up visit [id number] Kathleen Villa 1995 F Date Provider Department Center 01/27/2025 233-MISHEL ORTEZ [facility] [place] None Family History Problem Relation Age of Onset Anxiety disorder Mother Multiple sclerosis Father Psoriasis Father Family Status - Relation Status Age at Mother Alive Father Alive Level of Service:87215 IN OFFICE/OUTPATIENT ESTABLISHED MOD MDM 30 MIN Reason for Visit and Comments: Skin Lesion [[id number]] - (PKN) [facility] Progress Noteon 01-27-2025 Progress Note DATE OF SERVICE: 01/27/2025 PATIENT NAME: Kathleen Villa : 1995 AGE: 29 y.o. CLINIC NUMBER: [id number] Visit type: Established patient Chief Complaint Patient [...] Adhesive? Yes- adhesives. Social History: Born/raised in [place]. Excessive sun exposure: Yes Used tanning beds: [...] exposure. Patien (more content not included)... Normal [facility] Basic Metabolic Profile (BMP )on 01-26-2025 BUN/CRE 7.8 RATIO Low 10-20 [facility] Comment on above: Performed By: #### L 100.0100, L500.2500 ####[facility] [address] [place], [address] Calcium [Mass/Vol] 8.5 mg/dL Normal 7.6-11.0 [facility] Comment on above: Performed By: #### L 100.0100, L500.2500 ####[facility] [address] [place], [address] Chloride [Moles/Vol] 97 mmol/L Low 98-108 [facility] Comment on above: Performed By: #### L 100.0100, L500.2500 ####[facility] [address] [place], [address] CO2 [Moles/Vol] 12.9 mmol/L Low 21.0-32.0 [facility] Comment on above: Performed By: #### L 100.0100, L500.2500 ####[facility] [address] [place], [address] Creatinine [Mass/Vol] 0.76 mg/dL Normal 0.70-1.20 [facility] Comment on above: Performed By: #### L 100.0100, L500.2500 ####[facility] [address] [place], [address] ECRCL 109.19 ml/min Normal 50-250 [facility] Comment on above: Performed By: #### L 100.0100, L500.2500 ####[facility] [address] [place], [address] GAP 24 High 5-15 [facility] Comment on above: Performed By: #### L 100.0100, L500.2500 ####[facility] [address] [place], [address] GFR/1.73 sq M.predicted among non-blacks MDRD (S/P/Bld) [Vol rate/Area] 109 mL/min/{1.73_m2} Normal >60 [facility] Comment on above: Result Comment: mL/m in/1.73m2 CKD-EPI Creatinine Equation (2020) Performed By: #### L 100.0100, L500.2500 ####[facility] [address] [place], [address] Glucose [Mass/Vol] 315 mg/dL High 70-99 [facility] Comment on above: Performed By: #### L 100.0100, L500.2500 ####[facility] [address] [place], [address] Potassium [Moles/Vol] 3.0 mmol/L Low 3.3-5.1 [facility] Comment on above: Performed By: #### L 100.0100, L500.2500 ####[facility] [address] [place], [address] Sodium [Moles/Vol] 133 mmol/L Normal 133-145 [facility] Comment on above: Performed By: #### L 100.0100, L500.2500 ####[facility] [address] [place], [address] Urea nitrogen [Mass/Vol] 6 mg/dL Normal 4-19 [facility] Comment on above: Performed By: #### L 100.0100, L500.2500 ####[facility] [address] [place], [address] Bedside Glucoseon 01-26-2024 FINGERSTICK GLU 328 mg/dL High 74-106 [facility] Comment on above: Result Comment: EDGAR GEMENT OF PATIENT CARE PER NURSING PROTOCOL Performed By: #### L 501.080 ####[facility] [address] [place], [address] FINGERSTICK GLU 306 mg/dL High 74-106 [facility] Comment on above: Result Comment: EDGAR GEMENT OF PATIENT CARE PER NURSING PROTOCOL Performed By: #### L 501.080 ####[facility] [address] [place], [address] CBC W/Diff, Automatedon 06-0 Absolute Lymph 1.50 X10 3/uL Normal 0.83-4.51 [facility] Comment on above: Performed By: #### L 100.0100, L500.2500 ####[facility] [address] [place], [address] Absolute Neut 13.5 X10 3/uL High 2.0-7.7 [facility] Comment on above: Performed By: #### L 100.0100, L500.2500 ####[facility] [address] [place], [address] Basophils/100 WBC (Bld) 0.3 % Normal 0-1 [facility] Comment on above: Performed By: #### L 100.0100, L500.2500 ####[facility] [address] [place], [address] Eosinophils/100 WBC (Bld) 0.0 % Normal 0-5 [facility] Comment on above: Performed By: #### L 100.0100, L500.2500 ####[facility] [address] [place], [address] Erythrocyte distribution width (RBC) [Ratio] 13.1 % Normal 11.6-14.6 [facility] Comment on above: Performed By: #### L 100.0100, L500.2500 ####[facility] [address] [place], [address] Hematocrit (Bld) [Volume fraction] 38.8 % Normal 37-47 [facility] Comment on above: Performed By: #### L 100.0100, L500.2500 ####[facility] [address] [place], [address] Hemoglobin (Bld) [Mass/Vol] 13.4 g/dL Normal 12.0-15.0 [facility] Comment on above: Performed By: #### L 100.0100, L500.2500 ####[facility] [address] [place], [address] IG% 1.300 High 0.0-0.9 [facility] Comment on above: Result Comment: IG% - Immature Granulocytes (promyelocytes, myelocytes andmetamyelocytes) > 1% indicates that a LEFT SHIFT is Present. Performed By: #### L 100.0100, L500.2500 ####[facility] [address] [place], [address] Lymphocytes/100 WBC (Bld) 9.3 % Low 19-41 [facility] Comment on above: Performed By: #### L 100.0100, L500.2500 ####[facility] [address] [place], [address] MCH (RBC) [Entitic mass] 30.0 pg Normal 27.0-32.0 [facility] Comment on above: Performed By: #### L 100.0100, L500.2500 ####[facility] [address] [place], [address] MCHC (RBC) [Mass/Vol] 34.5 g/dL Normal 32-36 [facility] Comment on above: Performed By: #### L 100.0100, L500.2500 ####[facility] [address] [place], [address] MCV (RBC) [Entitic vol] 86.8 fL Normal 81-99 [facility] Comment on above: Performed By: #### L 100.0100, L500.2500 ####[facility] [address] [place], [address] Monocytes/100 WBC (Bld) 5.2 % Normal 0-10 [facility] Comment on above: Performed By: #### L 100.0100, L500.2500 ####[facility] [address] [place], [address] Neutrophils/100 WBC (Bld) 83.9 % High 47-70 [facility] Comment on above: Performed By: #### L 100.0100, L500.2500 ####[facility] [address] [place], [address] Nucleated RBC (Bld) [#/Vol] 0 10*3/uL Normal 0-5 [facility] Comment on above: Performed By: #### L 100.0100, L500.2500 ####[facility] [address] [place], [address] Platelet mean volume (Bld) [Entitic vol] 11.5 fL Normal 6.2-12.0 [facility] Comment on above: Performed By: #### L 100.0100, L500.2500 ####[facility] [address] [place], [address] Platelets (Bld) [#/Vol] 169 10*3/uL Normal 150-450 [facility] Comment on above: Performed By: #### L 100.0100, L500.2500 ####[facility] [address] [place], [address] RBC (Bld) [#/Vol] 4.47 10*6/uL Normal 4.2-5.4 [facility] Comment on above: Performed By: #### L 100.0100, L500.2500 ####[facility] [address] [place], [address] RDW SD 41.1 fl Normal 35.1-43.9 [facility] Comment on above: Performed By: #### L 100.0100, L500.2500 ####[facility] [address] [place], [address] WBC (Bld) [#/Vol] 16.1 10*3/uL High 4.4-11.0 [facility] Comment on above: Performed By: #### L 100.0100, L500.2500 ####[facility] [address] [place], [address] Discharge Instructionon 06-0 Discharge Instruction Normal [facility] Basic Metabolic Profile (BMP )on 01-25-2025 BUN/CRE 8.0 RATIO Low 10-20 [facility] Comment on above: Performed By: #### L 100.0100, L500.2500 ####[facility] [address] [place], [address] Calcium [Mass/Vol] 8.1 mg/dL Normal 7.6-11.0 [facility] Comment on above: Performed By: #### L 100.0100, L500.2500 ####[facility] [address] [place], [address] Chloride [Moles/Vol] 100 mmol/L Normal 98-108 [facility] Comment on above: Performed By: #### L 100.0100, L500.2500 ####[facility] [address] [place], [address] CO2 [Moles/Vol] 14.7 mmol/L Low 21.0-32.0 [facility] Comment on above: Performed By: #### L 100.0100, L500.2500 ####[facility] [address] [place], [address] Creatinine [Mass/Vol] 0.66 mg/dL Low 0.70-1.20 [facility] Comment on above: Performed By: #### L 100.0100, L500.2500 ####[facility] [address] [place], [address] ECRCL 125.73 ml/min Normal 50-250 [facility] Comment on above: Performed By: #### L 100.0100, L500.2500 ####[facility] [address] [place], [address] GAP 22 High 5-15 [facility] Comment on above: Performed By: #### L 100.0100, L500.2500 ####[facility] [address] [place], [address] GFR/1.73 sq M.predicted among non-blacks MDRD (S/P/Bld) [Vol rate/Area] 121 mL/min/{1.73_m2} Normal >60 [facility] Comment on above: Result Comment: mL/m in/1.73m2 CKD-EPI Creatinine Equation (2020) Performed By: #### L 100.0100, L500.2500 ####[facility] [address] [place], [address] Glucose [Mass/Vol] 287 mg/dL High 70-99 [facility] Comment on above: Performed By: #### L 100.0100, L500.2500 ####[facility] [address] [place], [address] Potassium [Moles/Vol] 2.9 mmol/L Low 3.3-5.1 [facility] Comment on above: Performed By: #### L 100.0100, L500.2500 ####[facility] [address] [place], [address] Sodium [Moles/Vol] 136 mmol/L Normal 133-145 [facility] Comment on above: Performed By: #### L 100.0100, L500.2500 ####[facility] [address] [place], [address] Urea nitrogen [Mass/Vol] 5 mg/dL Normal 4-19 [facility] Comment on above: Performed By: #### L 100.0100, L500.2500 ####[facility] [address] [place], [address] Bedside Glucoseon --2024 FINGERSTICK GLU 352 mg/dL High 74-106 [facility] Comment on above: Result Comment: EDGAR GEMENT OF PATIENT CARE PER NURSING PROTOCOL Performed By: #### L 501.080 ####[facility] [address] [place], [address] FINGERSTICK GLU 220 mg/dL High 74-106 [facility] Comment on above: Result Comment: EDGAR GEMENT OF PATIENT CARE PER NURSING PROTOCOL Performed By: #### L 501.080 ####[facility] [address] [place], [address] CBC W/Diff, Automatedon 05-3 Absolute Lymph 1.08 X10 3/uL Normal 0.83-4.51 [facility] Comment on above: Performed By: #### L 100.0100, L500.2500 ####[facility] [address] [place], [address] Absolute Neut 19.8 X10 3/uL High 2.0-7.7 [facility] Comment on above: Performed By: #### L 100.0100, L500.2500 ####[facility] [address] [place], [address] Basophils/100 WBC (Bld) 0.2 % Normal 0-1 [facility] Comment on above: Performed By: #### L 100.0100, L500.2500 ####[facility] [address] [place], [address] Eosinophils/100 WBC (Bld) 0.0 % Normal 0-5 [facility] Comment on above: Performed By: #### L 100.0100, L500.2500 ####[facility] [address] [place], [address] Erythrocyte distribution width (RBC) [Ratio] 12.9 % Normal 11.6-14.6 [facility] Comment on above: Performed By: #### L 100.0100, L500.2500 ####[facility] [address] [place], [address] Hematocrit (Bld) [Volume fraction] 32.9 % Low 37-47 [facility] Comment on above: Performed By: #### L 100.0100, L500.2500 ####[facility] [address] [place], [address] Hemoglobin (Bld) [Mass/Vol] 11.3 g/dL Low 12.0-15.0 [facility] Comment on above: Performed By: #### L 100.0100, L500.2500 ####[facility] [address] [place], [address] IG% 1.100 High 0.0-0.9 [facility] Comment on above: Result Comment: IG% - Immature Granulocytes (promyelocytes, myelocytes andmetamyelocytes) > 1% indicates that a LEFT SHIFT is Present. Performed By: #### L 100.0100, L500.2500 ####[facility] [address] [place], [address] Lymphocytes/100 WBC (Bld) 4.8 % Low 19-41 [facility] Comment on above: Performed By: #### L 100.0100, L500.2500 ####[facility] [address] [place], [address] MCH (RBC) [Entitic mass] 29.7 pg Normal 27.0-32.0 [facility] Comment on above: Performed By: #### L 100.0100, L500.2500 ####[facility] [address] [place], [address] MCHC (RBC) [Mass/Vol] 34.3 g/dL Normal 32-36 [facility] Comment on above: Performed By: #### L 100.0100, L500.2500 ####[facility] [address] [place], [address] MCV (RBC) [Entitic vol] 86.6 fL Normal 81-99 [facility] Comment on above: Performed By: #### L 100.0100, L500.2500 ####[facility] [address] [place], [address] Monocytes/100 WBC (Bld) 6.8 % Normal 0-10 [facility] Comment on above: Performed By: #### L 100.0100, L500.2500 ####[facility] [address] [place], [address] Neutrophils/100 WBC (Bld) 87.1 % High 47-70 [facility] Comment on above: Performed By: #### L 100.0100, L500.2500 ####[facility] [address] [place], [address] Nucleated RBC (Bld) [#/Vol] 0 10*3/uL Normal 0-5 [facility] Comment on above: Performed By: #### L 100.0100, L500.2500 ####[facility] [address] [place], [address] Platelet mean volume (Bld) [Entitic vol] 12.0 fL Normal 6.2-12.0 [facility] Comment on above: Performed By: #### L 100.0100, L500.2500 ####[facility] [address] [place], [address] Platelets (Bld) [#/Vol] 129 10*3/uL Low 150-450 [facility] Comment on above: Performed By: #### L 100.0100, L500.2500 ####[facility] [address] [place], [address] RBC (Bld) [#/Vol] 3.80 10*6/uL Low 4.2-5.4 [facility] Comment on above: Performed By: #### L 100.0100, L500.2500 ####[facility] [address] [place], [address] RDW SD 40.6 fl Normal 35.1-43.9 [facility] Comment on above: Performed By: #### L 100.0100, L500.2500 ####[facility] [address] [place], [address] WBC (Bld) [#/Vol] 22.7 10*3/uL High 4.4-11.0 [facility] Comment on above: Performed By: #### L 100.0100, L500.2500 ####[facility] [address] [place], [address] Magnesiumon 01-25-2025 Magnesium [Mass/Vol] 1.6 mg/dL Normal 1.5-2.2 [facility] Comment on above: Performed By: #### L 501.2300, L501.5200 ####[facility] [address] [place], [address] Phosphoruson 01-25-2025 Phosphate [Mass/Vol] 2.1 mg/dL Low 2.7-4.5 [facility] Comment on above: Performed By: #### L 501.2300, L501.5200 ####[facility] [address] [place], [address] Basic Metabolic Profile (BMP )on 01-24-2025 BUN/CRE 6.3 RATIO Low 10-20 [facility] Comment on above: Performed By: #### L 500.2500 ####[facility] [address] [place], [address] Calcium [Mass/Vol] 7.6 mg/dL Normal 7.6-11.0 [facility] Comment on above: Performed By: #### L 500.2500 ####[facility] [address] [place], [address] Chloride [Moles/Vol] 111 mmol/L High 98-108 [facility] Comment on above: Performed By: #### L 500.2500 ####[facility] [address] [place], [address] CO2 [Moles/Vol] 18.8 mmol/L Low 21.0-32.0 [facility] Comment on above: Performed By: #### L 500.2500 ####[facility] [address] [place], [address] Creatinine [Mass/Vol] 0.64 mg/dL Low 0.70-1.20 [facility] Comment on above: Performed By: #### L 500.2500 ####[facility] [address] [place], [address] ECRCL 129.66 ml/min Normal 50-250 [facility] Comment on above: Performed By: #### L 500.2500 ####[facility] [address] [place], [address] GAP 6 Normal 5-15 [facility] Comment on above: Performed By: #### L 500.2500 ####[facility] [address] [place], [address] GFR/1.73 sq M.predicted among non-blacks MDRD (S/P/Bld) [Vol rate/Area] 122 mL/min/{1.73_m2} Normal >60 [facility] Comment on above: Result Comment: mL/m in/1.73m2 CKD-EPI Creatinine Equation (2020) Performed By: #### L 500.2500 ####[facility] [address] [place], [address] Glucose [Mass/Vol] 182 mg/dL High 70-99 [facility] Comment on above: Performed By: #### L 500.2500 ####[facility] [address] [place], [address] Potassium [Moles/Vol] 3.9 mmol/L Normal 3.3-5.1 [facility] Comment on above: Performed By: #### L 500.2500 ####[facility] [address] [place], [address] Sodium [Moles/Vol] 136 mmol/L Normal 133-145 [facility] Comment on above: Performed By: #### L 500.2500 ####[facility] [address] [place], [address] Urea nitrogen [Mass/Vol] 4 mg/dL Normal 4-19 [facility] Comment on above: Performed By: #### L 500.2500 ####[facility] [address] [place], [address] CO2 [Moles/Vol] 9.9 mmol/L Invalid Interpretation Code 21.0-32.0 [facility] Comment on above: Order [...] by same. Performed By: #### L 500.2500 ####[facility] [address] [place], [place], [id number] BUN/CRE 8.6 RATIO Low 10-20 [facility] Comment on above: Order Comment: Call with results STAT Performed By: #### L 500.2500 ####[facility] [address] [place], [place], [phone] Calcium [Mass/Vol] 7.8 mg/dL Normal 7.6-11.0 [facility] Comment on above: Order Comment: Call with results STAT Performed By: #### L 500.2500 ####[facility] [address] [place], [place], [phone] Chloride [Moles/Vol] 113 mmol/L High 98-108 [facility] Comment on above: Order Comment: Call with results STAT Performed By: #### L 500.2500 ####[facility] [address] [place], [address] CO2 [Moles/Vol] 18.6 mmol/L Low 21.0-32.0 [facility] Comment on above: Order Comment: Call MD with results STAT Performed By: #### L 500.2500 ####[facility] [address] [place], [address] Creatinine [Mass/Vol] 0.65 mg/dL Low 0.70-1.20 [facility] Comment on above: Order Comment: Call MD with results STAT Performed By: #### L 500.2500 ####[facility] [address] [place], [address] ECRCL 127.66 ml/min Normal 50-250 [facility] Comment on above: Order Comment: Call MD with results STAT Performed By: #### L 500.2500 ####[facility] [address] [place], [address] GAP 9 Normal 5-15 [facility] Comment on above: Order Comment: Call MD with results STAT Performed By: #### L 500.2500 ####[facility] [address] [place], [address] GFR/1.73 sq M.predicted among non-blacks MDRD (S/P/Bld) [Vol rate/Area] 121 mL/min/{1.73_m2} Normal >60 [facility] Comment on above: Order Comment: Call MD with results STAT Result Comment: mL/m in/1.73m2 CKD-EPI Creatinine Equation (2020) Performed By: #### L 500.2500 ####[facility] [address] [place], [address] Glucose [Mass/Vol] 121 mg/dL High 70-99 [facility] Comment on above: Order Comment: Call MD with results STAT Performed By: #### L 500.2500 ####[facility] [address] [place], [address] Potassium [Moles/Vol] 2.9 mmol/L Low 3.3-5.1 [facility] Comment on above: Order Comment: Call MD with results STAT Performed By: #### L 500.2500 ####[facility] [address] [place], [address] Sodium [Moles/Vol] 141 mmol/L Normal 133-145 [facility] Comment on above: Order Comment: Call MD with results STAT Performed By: #### L 500.2500 ####[facility] [address] [place], [address] Urea nitrogen [Mass/Vol] 6 mg/dL Normal 4-19 [facility] Comment on above: Order Comment: Call MD with results STAT Performed By: #### L 500.2500 ####[facility] [address] [place], [address] Bedside Glucoseon 01-24-2025 FINGERSTICK GLU 304 mg/dL High 74-106 [facility] Comment on above: Result Comment: EDGAR GEMENT OF PATIENT CARE PER NURSING PROTOCOL Performed By: #### L 501.080 ####[facility] [address] [place], [address] FINGERSTICK GLU 239 mg/dL High -[address] [place] [address] Comment on above: Result Comment: EDGAR GEMENT OF PATIENT CARE PER NURSING PROTOCOL Performed By: #### L 501.080 ####[facility] [address] [place], [address] FINGERSTICK GLU 400 mg/dL High -[address] [place] [address] Comment on above: Result Comment: EDGAR GEMENT OF PATIENT CARE PER NURSING PROTOCOL Performed By: #### L 501.080 ####[facility] [address] [place], [address] FINGERSTICK GLU 309 mg/dL High -106 [facility] Comment on above: Result Comment: EDGAR GEMENT OF PATIENT CARE PER NURSING PROTOCOL Performed By: #### L 501.080 ####[facility] [address] [place], [address] FINGERSTICK GLU 261 mg/dL High 74-106 [facility] Comment on above: Result Comment: EDGAR GEMENT OF PATIENT CARE PER NURSING PROTOCOL Performed By: #### L 501.080 ####[facility] [address] [place], [address] FINGERSTICK GLU 129 mg/dL High 74-106 [facility] Comment on above: Result Comment: EDGAR GEMENT OF PATIENT CARE PER NURSING PROTOCOL Performed By: #### L 501.080 ####[facility] [address] [place], [address] FINGERSTICK GLU 177 mg/dL High 74-106 [facility] Comment on above: Result Comment: EDGAR GEMENT OF PATIENT CARE PER NURSING PROTOCOL Performed By: #### L 501.080 ####[facility] [address] [place], [address] FINGERSTICK GLU 167 mg/dL High 74-106 [facility] Comment on above: Result Comment: EDGAR GEMENT OF PATIENT CARE PER NURSING PROTOCOL Performed By: #### L 501.080 ####[facility] [address] [place], [address] FINGERSTICK GLU 172 mg/dL High 74-106 [facility] Comment on above: Result Comment: EDGAR GEMENT OF PATIENT CARE PER NURSING PROTOCOL Performed By: #### L 501.080 ####[facility] [address] [place], [address] FINGERSTICK GLU 156 mg/dL High 74-106 [facility] Comment on above: Result Comment: EDGAR GEMENT OF PATIENT CARE PER NURSING PROTOCOL Performed By: #### L 501.080 ####[facility] [address] [place], [address] FINGERSTICK GLU 123 mg/dL High 74-106 [facility] Comment on above: Result Comment: EDGAR GEMENT OF PATIENT CARE PER NURSING PROTOCOL Performed By: #### L 501.080 ####[facility] [address] [place], [address] FINGERSTICK GLU 97 mg/dL Normal 74-106 [facility] Comment on above: Result Comment: EDGAR GEMENT OF PATIENT CARE PER NURSING PROTOCOL Performed By: #### L 501.080 ####[facility] [address] [place], [address] FINGERSTICK GLU 115 mg/dL High 74-106 [facility] Comment on above: Result Comment: EDGAR GEMENT OF PATIENT CARE PER NURSING PROTOCOL Performed By: #### L 501.080 ####[facility] [address] [place], [address] FINGERSTICK GLU 143 mg/dL High -106 [facility] Comment on above: Result Comment: EDGAR GEMENT OF PATIENT CARE PER NURSING PROTOCOL Performed By: #### L 501.080 ####[facility] [address] [place], [address] CBC W/Diff, Automatedon 05-3 SMEAR COMMENT COMMENT Normal [facility] Comment on above: Result Comment: LYMP HOPENIA. Performed By: #### L 100.0100 ####[facility] [address] [place], [address] PLT EST MOD DEC Normal ADEQ [facility] Comment on above: Performed By: #### L 100.0100 ####[facility] [address] [place], [address] Basic Metabolic Profile (BMP )on 01-23-2025 BUN/CRE 11.7 RATIO Normal 10-20 [facility] Comment on above: Order Comment: Call MD with results STAT Performed By: #### L 500.2500 ####[facility] [address] [place], [address] Calcium [Mass/Vol] 7.7 mg/dL Normal 7.6-11.0 [facility] Comment on above: Order Comment: Call MD with results STAT Performed By: #### L 500.2500 ####[facility] [address] [place], [address] Chloride [Moles/Vol] 112 mmol/L High 98-108 [facility] Comment on above: Order Comment: Call MD with results STAT Performed By: #### L 500.2500 ####[facility] [address] [place], [address] CO2 [Moles/Vol] 16.8 mmol/L Low 21.0-32.0 [facility] Comment on above: Order Comment: Call MD with results STAT Performed By: #### L 500.2500 ####[facility] [address] [place], [address] Creatinine [Mass/Vol] 0.64 mg/dL Low 0.70-1.20 [facility] Comment on above: Order Comment: Call MD with results STAT Performed By: #### L 500.2500 ####[facility] [address] [place], [address] ECRCL 129.66 ml/min Normal 50-250 [facility] Comment on above: Order Comment: Call MD with results STAT Performed By: #### L 500.2500 ####[facility] [address] [place], [address] GAP 10 Normal 5-15 [facility] Comment on above: Order Comment: Call MD with results STAT Performed By: #### L 500.2500 ####[facility] [address] [place], [address] GFR/1.73 sq M.predicted among non-blacks MDRD (S/P/Bld) [Vol rate/Area] 122 mL/min/{1.73_m2} Normal >60 [facility] Comment on above: Order Comment: Call MD with results STAT Result Comment: mL/m in/1.73m2 CKD-EPI Creatinine Equation (2020) Performed By: #### L 500.2500 ####[facility] [address] [place], [address] Glucose [Mass/Vol] 150 mg/dL High 70-99 [facility] Comment on above: Order Comment: Call MD with results STAT Performed By: #### L 500.2500 ####[facility] [address] [place], [address] Potassium [Moles/Vol] 3.2 mmol/L Low 3.3-5.1 [facility] Comment on above: Order Comment: Call MD with results STAT Performed By: #### L 500.2500 ####[facility] [address] [place], [address] Sodium [Moles/Vol] 139 mmol/L Normal 133-145 [facility] Comment on above: Order Comment: Call MD with results STAT Performed By: #### L 500.2500 ####[facility] [address] [place], [address] Urea nitrogen [Mass/Vol] 8 mg/dL Normal 4-19 [facility] Comment on above: Order Comment: Call MD with results STAT Performed By: #### L 500.2500 ####[facility] [address] [place], [address] BUN/CRE 14.4 RATIO Normal 10-20 [facility] Comment on above: Order Comment: Call MD with results STAT Performed By: #### L 500.2500 ####[facility] [address] [place], [address] Calcium [Mass/Vol] 7.5 mg/dL Low 7.6-11.0 [facility] Comment on above: Order Comment: Call MD with results STAT Performed By: #### L 500.2500 ####[facility] [address] [place], [address] Chloride [Moles/Vol] 112 mmol/L High 98-108 [facility] Comment on above: Order Comment: Call MD with results STAT Performed By: #### L 500.2500 ####[facility] [address] [place], [address] CO2 [Moles/Vol] 13.6 mmol/L Low 21.0-32.0 [facility] Comment on above: Order Comment: Call MD with results STAT Performed By: #### L 500.2500 ####[facility] [address] [place], [address] Creatinine [Mass/Vol] 0.69 mg/dL Low 0.70-1.20 [facility] Comment on above: Order Comment: Call MD with results STAT Performed By: #### L 500.2500 ####[facility] [address] [place], [address] ECRCL 120.26 ml/min Normal 50-250 [facility] Comment on above: Order Comment: Call MD with results STAT Performed By: #### L 500.2500 ####[facility] [address] [place], [address] GAP 13 Normal 5-15 [facility] Comment on above: Order Comment: Call MD with results STAT Performed By: #### L 500.2500 ####[facility] [address] [place], [address] GFR/1.73 sq M.predicted among non-blacks MDRD (S/P/Bld) [Vol rate/Area] 120 mL/min/{1.73_m2} Normal >60 [facility] Comment on above: Order Comment: Call MD with results STAT Result Comment: mL/m in/1.73m2 CKD-EPI Creatinine Equation (2020) Performed By: #### L 500.2500 ####[facility] [address] [place], [address] Glucose [Mass/Vol] 139 mg/dL High 70-99 [facility] Comment on above: Order Comment: Call MD with results STAT Performed By: #### L 500.2500 ####[facility] [address] [place], [address] Potassium [Moles/Vol] 3.4 mmol/L Normal 3.3-5.1 [facility] Comment on above: Order Comment: Call MD with results STAT Performed By: #### L 500.2500 ####[facility] [address] [place], [address] Sodium [Moles/Vol] 139 mmol/L Normal 133-145 [facility] Comment on above: Order Comment: Call MD with results STAT Performed By: #### L 500.2500 ####[facility] [address] [place], [address] Urea nitrogen [Mass/Vol] 10 mg/dL Normal 4-19 [facility] Comment on above: Order Comment: Call MD with results STAT Performed By: #### L 500.2500 ####[facility] [address] [place], [address] BUN/CRE 16.3 RATIO Normal 10-20 [facility] Comment on above: Order Comment: Call MD with results STAT Performed By: #### L 500.2500 ####[facility] [address] [place], [address] Calcium [Mass/Vol] 7.6 mg/dL Normal 7.6-11.0 [facility] Comment on above: Order Comment: Call MD with results STAT Performed By: #### L 500.2500 ####[facility] [address] [place], [address] Chloride [Moles/Vol] 110 mmol/L High 98-108 [facility] Comment on above: Order Comment: Call MD with results STAT Performed By: #### L 500.2500 ####[facility] [address] [place], [address] CO2 [Moles/Vol] 12.5 mmol/L Low 21.0-32.0 [facility] Comment on above: Order Comment: Call MD with results STAT Performed By: #### L 500.2500 ####[facility] [address] [place], [address] Creatinine [Mass/Vol] 0.72 mg/dL Normal 0.70-1.20 [facility] Comment on above: Order Comment: Call MD with results STAT Performed By: #### L 500.2500 ####[facility] [address] [place], [address] ECRCL 115.25 ml/min Normal 50-250 [facility] Comment on above: Order Comment: Call MD with results STAT Performed By: #### L 500.2500 ####[facility] [address] [place], [address] GAP 16 High 5-15 [facility] Comment on above: Order Comment: Call MD with results STAT Performed By: #### L 500.2500 ####[facility] [address] [place], [address] GFR/1.73 sq M.predicted among non-blacks MDRD (S/P/Bld) [Vol rate/Area] 115 mL/min/{1.73_m2} Normal >60 [facility] Comment on above: Order Comment: Call MD with results STAT Result Comment: mL/m in/1.73m2 CKD-EPI Creatinine Equation (2020) Performed By: #### L 500.2500 ####[facility] [address] [place], [address] Glucose [Mass/Vol] 176 mg/dL High 70-99 [facility] Comment on above: Order Comment: Call MD with results STAT Performed By: #### L 500.2500 ####[facility] [address] [place], [address] Potassium [Moles/Vol] 3.7 mmol/L Normal 3.3-5.1 [facility] Comment on above: Order Comment: Call MD with results STAT Performed By: #### L 500.2500 ####[facility] [address] [place], [address] Sodium [Moles/Vol] 138 mmol/L Normal 133-145 [facility] Comment on above: Order Comment: Call MD with results STAT Performed By: #### L 500.2500 ####[facility] [address] [place], [address] Urea nitrogen [Mass/Vol] 12 mg/dL Normal 4-19 [facility] Comment on above: Order Comment: Call MD with results STAT Performed By: #### L 500.2500 ####[facility] [address] [place], [address] BUN/CRE 16.2 RATIO Normal 10-20 [facility] Comment on above: Order Comment: Call MD with results STAT Performed By: #### L 500.2500 ####[facility] [address] [place], [address] Calcium [Mass/Vol] 7.6 mg/dL Normal 7.6-11.0 [facility] Comment on above: Order Comment: Call MD with results STAT Performed By: #### L 500.2500 ####[facility] [address] [place], [address] Chloride [Moles/Vol] 111 mmol/L High 98-108 [facility] Comment on above: Order Comment: Call MD with results STAT Performed By: #### L 500.2500 ####[facility] [address] [place], [address] CO2 [Moles/Vol] 11.0 mmol/L Low 21.0-32.0 [facility] Comment on above: Order Comment: Call MD with results STAT Performed By: #### L 500.2500 ####[facility] [address] [place], [address] Creatinine [Mass/Vol] 0.81 mg/dL Normal 0.70-1.20 [facility] Comment on above: Order Comment: Call MD with results STAT Performed By: #### L 500.2500 ####[facility] [address] [place], [address] ECRCL 102.45 ml/min Normal 50-250 [facility] Comment on above: Order Comment: Call MD with results STAT Performed By: #### L 500.2500 ####[facility] [address] [place], [address] GAP 18 High 5-15 [facility] Comment on above: Order Comment: Call MD with results STAT Performed By: #### L 500.2500 ####[facility] [address] [place], [address] GFR/1.73 sq M.predicted among non-blacks MDRD (S/P/Bld) [Vol rate/Area] 100 mL/min/{1.73_m2} Normal >60 [facility] Comment on above: Order Comment: Call MD with results STAT Result Comment: mL/m in/1.73m2 CKD-EPI Creatinine Equation (2020) Performed By: #### L 500.2500 ####[facility] [address] [place], [address] Glucose [Mass/Vol] 209 mg/dL High 70-99 [facility] Comment on above: Order Comment: Call MD with results STAT Performed By: #### L 500.2500 ####[facility] [address] [place], [address] Potassium [Moles/Vol] 4.5 mmol/L Normal 3.3-5.1 [facility] Comment on above: Order Comment: Call MD with results STAT Result Comment: Hemo lysis present, Results??could be affected.?? Performed By: #### L 500.2500 ####[facility] [address] [place], [address] Sodium [Moles/Vol] 140 mmol/L Normal 133-145 [facility] Comment on above: Order Comment: Call MD with results STAT Performed By: #### L 500.2500 ####[facility] [address] [place], [address] Urea nitrogen [Mass/Vol] 13 mg/dL Normal 4-19 [facility] Comment on above: Order Comment: Call MD with results STAT Performed By: #### L 500.2500 ####[facility] [address] [place], [address] BUN/CRE 21.2 RATIO High 10-20 [facility] Comment on above: Order Comment: Call MD with results STAT Performed By: #### L 500.2500 ####[facility] [address] [place], [address] Calcium [Mass/Vol] 8.4 mg/dL Normal 7.6-11.0 [facility] Comment on above: Order Comment: Call MD with results STAT Performed By: #### L 500.2500 ####[facility] [address] [place], [address] Chloride [Moles/Vol] 102 mmol/L Normal 98-108 [facility] Comment on above: Order Comment: Call MD with results STAT Performed By: #### L 500.2500 ####[facility] [address] [place], [address] CO2 [Moles/Vol] 7.2 mmol/L Invalid Interpretation Code 21.0-32.0 [facility] Comment on above: Order Comment: Call MD with results STAT Result Comment: Crit ical Result(s) Called at: by:??Results read back bysame.Critical Result(s) Called at:0104 by: ROSLYN HAVEN TO LINDAFORREST??Results read back by same. Performed By: #### L 500.2500 ####[facility] [address] [place], [address] Creatinine [Mass/Vol] 1.01 mg/dL Normal 0.70-1.20 [facility] Comment on above: Order Comment: Call MD with results STAT Performed By: #### L 500.2500 ####[facility] [address] [place], [address] ECRCL 82.16 ml/min Normal 50-250 [facility] Comment on above: Order Comment: Call MD with results STAT Performed By: #### L 500.2500 ####[facility] [address] [place], [address] GAP 26 High 5-15 [facility] Comment on above: Order Comment: Call MD with results STAT Performed By: #### L 500.2500 ####[facility] [address] [place], [address] GFR/1.73 sq M.predicted among non-blacks MDRD (S/P/Bld) [Vol rate/Area] 77 mL/min/{1.73_m2} Normal >60 [facility] Comment on above: Order Comment: Call MD with results STAT Result Comment: mL/m in/1.73m2 CKD-EPI Creatinine Equation (2020) Performed By: #### L 500.2500 ####[facility] [address] [place], [address] Glucose [Mass/Vol] 330 mg/dL High 70-99 [facility] Comment on above: Order Comment: Call MD with results STAT Performed By: #### L 500.2500 ####[facility] [address] [place], [address] Potassium [Moles/Vol] 4.4 mmol/L Normal 3.3-5.1 [facility] Comment on above: Order Comment: Call MD with results STAT Result Comment: Hemo lysis present, Results??could be affected.?? Performed By: #### L 500.2500 ####[facility] [address] [place], [address] Sodium [Moles/Vol] 135 mmol/L Normal 133-145 [facility] Comment on above: Order Comment: Call MD with results STAT Performed By: #### L 500.2500 ####[facility] [address] [place], [address] Urea nitrogen [Mass/Vol] 21 mg/dL High 4-19 [facility] Comment on above: Order Comment: Call MD with results STAT Performed By: #### L 500.2500 ####[facility] [address] [place], [address] Bedside Glucoseon 01-23-2025 FINGERSTICK GLU 150 mg/dL High 74-106 [facility] Comment on above: Result Comment: EDGAR GEMENT OF PATIENT CARE PER NURSING PROTOCOL Performed By: #### L 501.080 ####[facility] [address] [place], [address] FINGERSTICK GLU 170 mg/dL High 74-106 [facility] Comment on above: Result Comment: EDGAR GEMENT OF PATIENT CARE PER NURSING PROTOCOL Performed By: #### L 501.080 ####[facility] [address] [place], [address] FINGERSTICK GLU 134 mg/dL High 74-106 [facility] Comment on above: Result Comment: EDGAR GEMENT OF PATIENT CARE PER NURSING PROTOCOL Performed By: #### L 501.080 ####[facility] [address] [place], [address] FINGERSTICK GLU 134 mg/dL High 74-106 [facility] Comment on above: Result Comment: EDGAR GEMENT OF PATIENT CARE PER NURSING PROTOCOL Performed By: #### L 501.080 ####[facility] [address] [place], [address] FINGERSTICK GLU 145 mg/dL High 74-106 [facility] Comment on above: Result Comment: EDGAR GEMENT OF PATIENT CARE PER NURSING PROTOCOL Performed By: #### L 501.080 ####[facility] [address] [place], [address] FINGERSTICK GLU 136 mg/dL High 74-106 [facility] Comment on above: Result Comment: EDGAR GEMENT OF PATIENT CARE PER NURSING PROTOCOL Performed By: #### L 501.080 ####[facility] [address] [place], [address] FINGERSTICK GLU 128 mg/dL High 74-106 [facility] Comment on above: Result Comment: EDGAR GEMENT OF PATIENT CARE PER NURSING PROTOCOL Performed By: #### L 501.080 ####[facility] [address] [place], [address] FINGERSTICK GLU 127 mg/dL High 74-106 [facility] Comment on above: Result Comment: EDGAR GEMENT OF PATIENT CARE PER NURSING PROTOCOL Performed By: #### L 501.080 ####[facility] [address] [place], [address] FINGERSTICK GLU 120 mg/dL High 74-106 [facility] Comment on above: Result Comment: EDGAR GEMENT OF PATIENT CARE PER NURSING PROTOCOL Performed By: #### L 501.080 ####[facility] [address] [place], [address] FINGERSTICK GLU 127 mg/dL High 74-106 [facility] Comment on above: Result Comment: EDGAR GEMENT OF PATIENT CARE PER NURSING PROTOCOL Performed By: #### L 501.080 ####[facility] [address] [place], [address] FINGERSTICK GLU 176 mg/dL High 74-106 [facility] Comment on above: Result Comment: EDGAR GEMENT OF PATIENT CARE PER NURSING PROTOCOL Performed By: #### L 501.080 ####[facility] [address] [place], [address] FINGERSTICK GLU 156 mg/dL High 74-106 [facility] Comment on above: Result Comment: EDGAR GEMENT OF PATIENT CARE PER NURSING PROTOCOL Performed By: #### L 501.080 ####[facility] [address] [facility] [address] FINGERSTICK GLU 177 mg/dL High 74-106 [facility] Comment on above: Result Comment: EDGAR GEMENT OF PATIENT CARE PER NURSING PROTOCOL Performed By: #### L 501.080 ####[facility] [address] [facility] [address] FINGERSTICK GLU 200 mg/dL High 74-106 [facility] Comment on above: Result Comment: EDGAR GEMENT OF PATIENT CARE PER NURSING PROTOCOL Performed By: #### L 501.080 ####[facility] [address] [place], [address] FINGERSTICK GLU 214 mg/dL High 74-106 [facility] Comment on above: Result Comment: EDGAR GEMENT OF PATIENT CARE PER NURSING PROTOCOL Performed By: #### L 501.080 ####[facility] [address] [facility] [address] FINGERSTICK GLU 203 mg/dL High -106 [facility] Comment on above: Result Comment: EDGAR GEMENT OF PATIENT CARE PER NURSING PROTOCOL Performed By: #### L 501.080 ####[facility] [address] [facility] [address] FINGERSTICK GLU 217 mg/dL High 74-106 [facility] Comment on above: Result Comment: EDGAR GEMENT OF PATIENT CARE PER NURSING PROTOCOL Performed By: #### L 501.080 ####[facility] [address] [place], [address] FINGERSTICK GLU 230 mg/dL High [address] [place] [address] Comment on above: Result Comment: EDGAR GEMENT OF PATIENT CARE PER NURSING PROTOCOL Performed By: #### L 501.080 ####[facility] [address] [place], [address] FINGERSTICK GLU 258 mg/dL High [address] [place] [address] Comment on above: Result Comment: EDGAR GEMENT OF PATIENT CARE PER NURSING PROTOCOL Performed By: #### L 501.080 ####[facility] [address] [place], [address] FINGERSTICK GLU 269 mg/dL High [address] [place] [address] Comment on above: Result Comment: EDGAR GEMENT OF PATIENT CARE PER NURSING PROTOCOL Performed By: #### L 501.080 ####[facility] [address] [place], [address] FINGERSTICK GLU 253 mg/dL High [address] [place] [address] Comment on above: Result Comment: EDGAR GEMENT OF PATIENT CARE PER NURSING PROTOCOL Performed By: #### L 501.080 ####[facility] [address] [place], [address] FINGERSTICK GLU 286 mg/dL High [address] [place] [address] Comment on above: Result Comment: EDGAR GEMENT OF PATIENT CARE PER NURSING PROTOCOL Performed By: #### L 501.080 ####[facility] [address] [place], [address] CBC W/Diff, Automatedon - SMEAR COMMENT SCANNED Normal [facility] Comment on above: Performed By: #### L 100.0100 ####[facility] [address] [place], [address] Basic Metabolic Profile (BMP )on 01-22-2025 BUN/CRE 21.4 RATIO High 10-20 [facility] Comment on above: Performed By: #### L 500.2500, L501.2450, L500.3400, L700.6800, L100.0100 ####[facility] [address] [place], [address] Calcium [Mass/Vol] 9.4 mg/dL Normal 7.6-11.0 [facility] Comment on above: Performed By: #### L 500.2500, L501.2450, L500.3400, L700.6800, L100.0100 ####[facility] [address] [place], [address] Chloride [Moles/Vol] 92 mmol/L Low 98-108 [facility] Comment on above: Performed By: #### L 500.2500, L501.2450, L500.3400, L700.6800, L100.0100 ####[facility] [address] [place], [address] CO2 [Moles/Vol] 6.3 mmol/L Invalid Interpretation Code 21.0-32.0 [facility] Comment on above: Result Comment: Crit ical Result(s) Called at: by:??[facility] Result(s) Called at: 2055 by: ROSLYN AYERS??Results read back by same. Performed By: #### L 500.2500, L501.2450, L500.3400, L700.6800, L100.0100 ####[facility] [address] [place], [address] Creatinine [Mass/Vol] 1.10 mg/dL Normal 0.70-1.20 [facility] Comment on above: Performed By: #### L 500.2500, L501.2450, L500.3400, L700.6800, L100.0100 ####[facility] [address] [place], [address] GAP 32 High 5-15 [facility] Comment on above: Performed By: #### L 500.2500, L501.2450, L500.3400, L700.6800, L100.0100 ####[facility] [address] [place], [address] GFR/1.73 sq M.predicted among non-blacks MDRD (S/P/Bld) [Vol rate/Area] 69 mL/min/{1.73_m2} Normal >60 [facility] Comment on above: Result Comment: mL/m in/1.73m2 CKD-EPI Creatinine Equation (2020) Performed By: #### L 500.2500, L501.2450, L500.3400, L700.6800, L100.0100 ####[facility] [address] [place], [address] Glucose [Mass/Vol] 507 mg/dL Invalid Interpretation Code 70-99 [facility] Comment on above: Result Comment: Crit ical Result(s) Called at: by:??Results read back bysame.Critical Result(s) Called at: 2055 by: ROSLYN AYERS??Results read back by same.Critical Result(s) Called at: by:??Results read back bysame. Performed By: #### L 500.2500, L501.2450, L500.3400, L700.6800, L100.0100 ####[facility] [address] [place], [address] Potassium [Moles/Vol] 4.7 mmol/L Normal 3.3-5.1 [facility] Comment on above: Performed By: #### L 500.2500, L501.2450, L500.3400, L700.6800, L100.0100 ####[facility] [address] [place], [address] Sodium [Moles/Vol] 130 mmol/L Low 133-145 [facility] Comment on above: Performed By: #### L 500.2500, L501.2450, L500.3400, L700.6800, L100.0100 ####[facility] [address] [place], [address] Urea nitrogen [Mass/Vol] 24 mg/dL High 4-19 [facility] Comment on above: Performed By: #### L 500.2500, L501.2450, L500.3400, L700.6800, L100.0100 ####[facility] [address] [place], [address] Bedside Glucoseon 01-22-2025 FINGERSTICK GLU 369 mg/dL High 74-106 [facility] Comment on above: Result Comment: EDGAR GEMENT OF PATIENT CARE PER NURSING PROTOCOL Performed By: #### L 501.080 ####[facility] [address] [place], [address] FINGERSTICK GLU > 500 Invalid Interpretation Code 74-106 [facility] Comment on above: Result Comment: Insu bill GivenMANAGEMENT OF PATIENT CARE PER NURSING PROTOCOL Performed By: #### L 501.080 ####[facility] [address] [place], [address] FINGERSTICK GLU 492 mg/dL Invalid Interpretation Code 74-106 [facility] Comment on above: Result Comment: Dr Ej foreman FollowedMANAGEMENT OF PATIENT CARE PER NURSING PROTOCOL Performed By: #### L 501.080 ####[facility] [address] [place], [address] Beta-Hydroxbytyrateon 2024 BETA-HYDROXYBUT 6.8 mmol/L Normal 0.0-0.3 [facility] Comment on above: Performed By: #### L 501.6901 ####[facility] [address] [place], [address] CBC W/Diff, Automatedon 05-2 PLT EST SLT DEC Normal ADEQ [facility] Comment on above: Performed By: #### L 500.2500, L501.2450, L500.3400, L700.6800, L100.0100 ####[facility] [address] [place], [address] SMEAR COMMENT SCANNED Normal [facility] Comment on above: Performed By: #### L 500.2500, L501.2450, L500.3400, L700.6800, L100.0100 ####[facility] [address] [place], [address] Emergency Department Summary on 01-22-2025 Emergency Department Summary Normal [facility] H AND P Exam - Hospitaliston 01-22-2025 H&P Exam - Hospitalist Normal [facility] Lipaseon 01-22-2025 Lipase [Catalytic activity/Vol] 11 U/L Low 13-75 [facility] Comment on above: Result Comment: Sulma schmitz note:LIPASE revised reference range effective 22.New Lipase methodology. Expected to produce lower valuesthan the previous assay method.NEW Reference Range: 13 - 75 U/L Performed By: #### L 500.2500, L501.2450, L500.3400, L700.6800, L100.0100 ####[facility] [address] [place], [address] Liver Profileon 01-22-2025 Albumin [Mass/Vol] 4.6 g/dL Normal 3.5-5.0 [facility] Comment on above: Performed By: #### L 500.2500, L501.2450, L500.3400, L700.6800, L100.0100 ####[facility] [address] [place], [address] ALK PHOS 109 U/L High 35-104 [facility] Comment on above: Performed By: #### L 500.2500, L501.2450, L500.3400, L700.6800, L100.0100 ####[facility] [address] [place], [address] ALT [Catalytic activity/Vol] 11 U/L Normal <=34 [facility] Comment on above: Performed By: #### L 500.2500, L501.2450, L500.3400, L700.6800, L100.0100 ####[facility] [address] [place], [address] AST [Catalytic activity/Vol] 16 U/L Normal <=31 [facility] Comment on above: Performed By: #### L 500.2500, L501.2450, L500.3400, L700.6800, L100.0100 ####[facility] [address] [place], [address] Bilirubin [Mass/Vol] 0.96 mg/dL Normal 0.00-1.30 [facility] Comment on above: Performed By: #### L 500.2500, L501.2450, L500.3400, L700.6800, L100.0100 ####[facility] [address] [place], [address] Bilirubin.direct [Mass/Vol] 0.40 mg/dL High 0.00-0.30 [facility] Comment on above: Performed By: #### L 500.2500, L501.2450, L500.3400, L700.6800, L100.0100 ####[facility] [address] [place], [address] Globulin (S) [Mass/Vol] 3.3 g/dL Normal 2.2-4.2 [facility] Comment on above: Performed By: #### L 500.2500, L501.2450, L500.3400, L700.6800, L100.0100 ####[facility] [address] [place], [address] T PROT 7.9 g/dL Normal 5.9-8.4 [facility] Comment on above: Performed By: #### L 500.2500, L501.2450, L500.3400, L700.6800, L100.0100 ####[facility] [address] [place], [address] ,Serum,hCG Quali.on 01-22-2025 HCG, SERUM QUAL Negative Normal [facility] Comment on above: Performed By: #### L 500.2500, L501.2450, L500.3400, L700.6800, L100.0100 ####[facility] [address] [place], [address] Urinalysis, Completeon 01-22 WBC 0-5 SEEN Normal 0-5 [facility] Comment on above: Order Comment: CRITI CRISTINA VALUE CALLED TO [facility]01/22/252058 Nguyen Lollo.RESULTS READ BACK BY SAME.CLEAN CATCH Performed By: #### L 400.0001 ####[facility] [address] [place], [address] RBC 0-5 SEEN Normal 0-5 [facility] Comment on above: Order Comment: CRITI CRISTINA VALUE CALLED TO ZION TEA01/22/252058 Nguyen Lollo.RESULTS READ BACK BY SAME.CLEAN CATCH Performed By: #### L 400.0001 ####[facility] [address] [place], [address] BACTERIA 1+ /hpf Normal None Seen [facility] Comment on above: Order Comment: CRITI CRISTINA VALUE CALLED TO ZION TEAL01/22/252058 Nguyen Lollo.RESULTS READ BACK BY SAME.CLEAN CATCH Performed By: #### L 400.0001 ####[facility] [address] [place], [address] EPI,SQUAMOUS 0-5 SEEN Normal 5-10 [facility] Comment on above: Order Comment: CRITI CRISTINA VALUE CALLED TO ZION GUIDO01/22/252058 Nguyen Lollo.RESULTS READ BACK BY SAME.CLEAN CATCH Performed By: #### L 400.0001 ####[facility] [address] [place], [address] Mucus Ql (Urine sed) 0 SEEN Normal [facility] Comment on above: Order Comment: CRITI CRISTINA VALUE CALLED TO ZION GUIDO01/22/252058 Nguyen Lollo.RESULTS READ BACK BY SAME.CLEAN CATCH Performed By: #### L 400.0001 ####[facility] [address] [place], [address] Venous Blood Gason 5 Blood Gas Type ISABELLE [facility] Comment on above: Performed By: #### L 9000.0810 ####[facility] [address] [place], [address] CO2 [Moles/Vol] 8 mmol/L Low 23-33 [facility] Comment on above: Performed By: #### L 9000.0810 ####[facility] [address] [place], [address] HCO3 (Bld) [Moles/Vol] 8 mmol/L Low 22-26 [facility] Comment on above: Performed By: #### L 9000.0810 ####[facility] [address] [place], [address] O2 Delivery Dev Not entered [facility] Comment on above: Performed By: #### L 9000.0810 ####[facility] [address] [place], [address] Read Back By Yes [facility] Comment on above: Performed By: #### L 9000.0810 ####[facility] [address] [place], [address] SITE Not entered Normal [facility] Comment on above: Performed By: #### L 9000.0810 ####[facility] [address] [place], [address] VBG BE -21 mmol/L Low -1.0-3.5 [facility] Comment on above: Performed By: #### L 9000.0810 ####[facility] [address] [place], [address] VBG pCO2 20.8 mmHg Low 41-51 [facility] Comment on above: Performed By: #### L 9000.0810 ####[facility] [address] [place], [address] VBG pH 7.17 Invalid Interpretation Code 7.32-7.42 [facility] Comment on above: Performed By: #### L 9000.0810 ####[facility] [address] [place], [address] VBG PO2 48 mmHg High 25-40 [facility] Comment on above: Performed By: #### L 9000.0810 ####[facility] [address] [place], [address] VBG SO2 74 High 50-70 [facility] Comment on above: Performed By: #### L 9000.0810 ####[facility] [address] [place], [address] Abdomen Single Viewon 2024 Abdomen Single View Normal [facility] Gastroenterology Visit Repor ton 01-08-2025 Gastroenterology Visit Report Normal [facility] CBC W/Diff, Automatedon -3 Absolute Lymph 1.70 X10 3/uL Normal 0.83-4.51 [facility] Comment on above: Performed By: #### L 501.2300, L100.0100, L500.4050 ####[facility] [address] [place], [address] Absolute Neut 7.3 X10 3/uL Normal 2.0-7.7 [facility] Comment on above: Performed By: #### L 501.2300, L100.0100, L500.4050 ####[facility] [address] [place], [address] Basophils/100 WBC (Bld) 0.5 % Normal 0-1 [facility] Comment on above: Performed By: #### L 501.2300, L100.0100, L500.4050 ####[facility] [address] [place], [address] Eosinophils/100 WBC (Bld) 0.6 % Normal 0-5 [facility] Comment on above: Performed By: #### L 501.2300, L100.0100, L500.4050 ####[facility] [address] [place], [address] Erythrocyte distribution width (RBC) [Ratio] 13.1 % Normal 11.6-14.6 [facility] Comment on above: Performed By: #### L 501.2300, L100.0100, L500.4050 ####[facility] [address] [place], [address] Hematocrit (Bld) [Volume fraction] 42.8 % Normal 37-47 [facility] Comment on above: Performed By: #### L 501.2300, L100.0100, L500.4050 ####[facility] [address] [place], [address] Hemoglobin (Bld) [Mass/Vol] 14.5 g/dL Normal 12.0-15.0 [facility] Comment on above: Performed By: #### L 501.2300, L100.0100, L500.4050 ####[facility] [address] [place], [address] IG% 0.900 Normal 0.0-0.9 [facility] Comment on above: Result Comment: IG% - Immature Granulocytes (promyelocytes, myelocytes andmetamyelocytes) > 1% indicates that a LEFT SHIFT is Present. Performed By: #### L 501.2300, L100.0100, L500.4050 ####[facility] [address] [place], [address] Lymphocytes/100 WBC (Bld) 17.6 % Low 19-41 [facility] Comment on above: Performed By: #### L 501.2300, L100.0100, L500.4050 ####[facility] [address] [place], [address] MCH (RBC) [Entitic mass] 29.5 pg Normal 27.0-32.0 [facility] Comment on above: Performed By: #### L 501.2300, L100.0100, L500.4050 ####[facility] [address] [place], [address] MCHC (RBC) [Mass/Vol] 33.9 g/dL Normal 32-36 [facility] Comment on above: Performed By: #### L 501.2300, L100.0100, L500.4050 ####[facility] [address] [place], [address] MCV (RBC) [Entitic vol] 87.2 fL Normal 81-99 [facility] Comment on above: Performed By: #### L 501.2300, L100.0100, L500.4050 ####[facility] [address] [place], [address] Monocytes/100 WBC (Bld) 5.3 % Normal 0-10 [facility] Comment on above: Performed By: #### L 501.2300, L100.0100, L500.4050 ####[facility] [address] [place], [address] Neutrophils/100 WBC (Bld) 75.1 % High 47-70 [facility] Comment on above: Performed By: #### L 501.2300, L100.0100, L500.4050 ####[facility] [address] [place], [address] Nucleated RBC (Bld) [#/Vol] 0 10*3/uL Normal 0-5 [facility] Comment on above: Performed By: #### L 501.2300, L100.0100, L500.4050 ####[facility] [address] [place], [address] Platelet mean volume (Bld) [Entitic vol] 12.4 fL High 6.2-12.0 [facility] Comment on above: Performed By: #### L 501.2300, L100.0100, L500.4050 ####[facility] [address] [place], [address] Platelets (Bld) [#/Vol] 149 10*3/uL Low 150-450 [facility] Comment on above: Performed By: #### L 501.2300, L100.0100, L500.4050 ####[facility] [address] [place], [address] RBC (Bld) [#/Vol] 4.91 10*6/uL Normal 4.2-5.4 [facility] Comment on above: Performed By: #### L 501.2300, L100.0100, L500.4050 ####[facility] [address] [place], [address] RDW SD 41.7 fl Normal 35.1-43.9 [facility] Comment on above: Performed By: #### L 501.2300, L100.0100, L500.4050 ####[facility] [address] [place], [address] WBC (Bld) [#/Vol] 9.7 10*3/uL Normal 4.4-11.0 [facility] Comment on above: Performed By: #### L 501.2300, L100.0100, L500.4050 ####[facility] [address] [place], [address] Comprehensive Metabolic Prof [facility] 12-25-2024 Albumin [Mass/Vol] 4.3 g/dL Normal 3.5-5.0 [facility] Comment on above: Performed By: #### L 501.2300, L100.0100, L500.4050 ####[facility] [address] [place], [address] Albumin/Globulin [Mass ratio] 1.6 {ratio} Normal 0.9-2.4 [facility] Comment on above: Performed By: #### L 501.2300, L100.0100, L500.4050 ####[facility] [address] [place], [address] ALK PHOS 78 U/L Normal 35-104 [facility] Comment on above: Performed By: #### L 501.2300, L100.0100, L500.4050 ####[facility] [address] [place], [address] ALT [Catalytic activity/Vol] 9 U/L Normal <=34 [facility] Comment on above: Performed By: #### L 501.2300, L100.0100, L500.4050 ####[facility] [address] [place], [address] AST [Catalytic activity/Vol] 14 U/L Normal <=31 [facility] Comment on above: Performed By: #### L 501.2300, L100.0100, L500.4050 ####[facility] [address] [place], [address] Bilirubin [Mass/Vol] 0.56 mg/dL Normal 0.00-1.30 [facility] Comment on above: Performed By: #### L 501.2300, L100.0100, L500.4050 ####[facility] [address] [place], [address] BUN/CRE 14.6 RATIO Normal 10-20 [facility] Comment on above: Performed By: #### L 501.2300, L100.0100, L500.4050 ####[facility] [address] [place], [address] Calcium [Mass/Vol] 9.3 mg/dL Normal 7.6-11.0 [facility] Comment on above: Performed By: #### L 501.2300, L100.0100, L500.4050 ####[facility] [address] [place], [address] Chloride [Moles/Vol] 100 mmol/L Normal 98-108 [facility] Comment on above: Performed By: #### L 501.2300, L100.0100, L500.4050 ####[facility] [address] [place], [address] CO2 [Moles/Vol] 19.3 mmol/L Low 21.0-32.0 [facility] Comment on above: Performed By: #### L 501.2300, L100.0100, L500.4050 ####[facility] [address] [place], [address] Creatinine [Mass/Vol] 0.75 mg/dL Normal 0.70-1.20 [facility] Comment on above: Performed By: #### L 501.2300, L100.0100, L500.4050 ####[facility] [address] [place], [address] GAP 13 Normal 5-15 [facility] Comment on above: Performed By: #### L 501.2300, L100.0100, L500.4050 ####[facility] [address] [place], [address] GFR/1.73 sq M.predicted among non-blacks MDRD (S/P/Bld) [Vol rate/Area] 110 mL/min/{1.73_m2} Normal >60 [facility] Comment on above: Result Comment: mL/m in/1.73m2 CKD-EPI Creatinine Equation (2020) Performed By: #### L 501.2300, L100.0100, L500.4050 ####[facility] [address] [place], [address] Globulin (S) [Mass/Vol] 2.7 g/dL Normal 2.2-4.2 [facility] Comment on above: Performed By: #### L 501.2300, L100.0100, L500.4050 ####[facility] [address] [place], [address] Glucose [Mass/Vol] 443 mg/dL High 70-99 [facility] Comment on above: Performed By: #### L 501.2300, L100.0100, L500.4050 ####[facility] [address] [place], [address] Potassium [Moles/Vol] 4.5 mmol/L Normal 3.3-5.1 [facility] Comment on above: Performed By: #### L 501.2300, L100.0100, L500.4050 ####[facility] [address] [place], [address] Sodium [Moles/Vol] 133 mmol/L Normal 133-145 [facility] Comment on above: Performed By: #### L 501.2300, L100.0100, L500.4050 ####[facility] [address] [place], [address] T PROT 7.0 g/dL Normal 5.9-8.4 [facility] Comment on above: Performed By: #### L 501.2300, L100.0100, L500.4050 ####[facility] [address] [place], [address] Urea nitrogen [Mass/Vol] 11 mg/dL Normal 4-19 [facility] Comment on above: Performed By: #### L 501.2300, L100.0100, L500.4050 ####[facility] [address] [place], [address] Phosphoruson 12-25-2024 Phosphate [Mass/Vol] 2.9 mg/dL Normal 2.7-4.5 [facility] Comment on above: Performed By: #### L 501.2300, L100.0100, L500.4050 ####[facility] [address] [place], [address] Basic Metabolic Profile (BMP )on 12-16-2024 BUN/CRE 10.1 RATIO Normal 10-20 [facility] Comment on above: Performed By: #### L 100.0100, L500.2500 ####[facility] [address] [place], [address] Calcium [Mass/Vol] 8.4 mg/dL Normal 7.6-11.0 [facility] Comment on above: Performed By: #### L 100.0100, L500.2500 ####[facility] [address] [place], [address] Chloride [Moles/Vol] 107 mmol/L Normal 98-108 [facility] Comment on above: Performed By: #### L 100.0100, L500.2500 ####[facility] [address] [place], [address] CO2 [Moles/Vol] 19.2 mmol/L Low 21.0-32.0 [facility] Comment on above: Performed By: #### L 100.0100, L500.2500 ####[facility] [address] [place], [address] Creatinine [Mass/Vol] 0.68 mg/dL Low 0.70-1.20 [facility] Comment on above: Performed By: #### L 100.0100, L500.2500 ####[facility] [address] [place], [address] ECRCL 126.42 ml/min Normal 50-250 [facility] Comment on above: Performed By: #### L 100.0100, L500.2500 ####[facility] [address] [place], [address] GAP 11 Normal 5-15 [facility] Comment on above: Performed By: #### L 100.0100, L500.2500 ####[facility] [address] [place], [address] GFR/1.73 sq M.predicted among non-blacks MDRD (S/P/Bld) [Vol rate/Area] 120 mL/min/{1.73_m2} Normal >60 [facility] Comment on above: Result Comment: mL/m in/1.73m2 CKD-EPI Creatinine Equation (2020) Performed By: #### L 100.0100, L500.2500 ####[facility] [address] [place], [address] Glucose [Mass/Vol] 203 mg/dL High 70-99 [facility] Comment on above: Performed By: #### L 100.0100, L500.2500 ####[facility] [address] [place], [address] Potassium [Moles/Vol] 4.4 mmol/L Normal 3.3-5.1 [facility] Comment on above: Result Comment: Hemo lysis present, Results??could be affected.?? Performed By: #### L 100.0100, L500.2500 ####[facility] [address] [place], [address] Sodium [Moles/Vol] 137 mmol/L Normal 133-145 [facility] Comment on above: Performed By: #### L 100.0100, L500.2500 ####[facility] [address] [place], [address] Urea nitrogen [Mass/Vol] 7 mg/dL Normal 4-19 [facility] Comment on above: Performed By: #### L 100.0100, L500.2500 ####[facility] [address] [place], [address] Bedside Glucoseon 12-16-2024 FINGERSTICK GLU 214 mg/dL High 74-106 [facility] Comment on above: Result Comment: EDGAR GEMENT OF PATIENT CARE PER NURSING PROTOCOL Performed By: #### L 501.080 ####[facility] [address] [place], [address] FINGERSTICK GLU 227 mg/dL High 74-106 [facility] Comment on above: Result Comment: EDGAR GEMENT OF PATIENT CARE PER NURSING PROTOCOL Performed By: #### L 501.080 ####[facility] [address] [place], [address] FINGERSTICK GLU 180 mg/dL High 74-106 [facility] Comment on above: Result Comment: EDGAR GEMENT OF PATIENT CARE PER NURSING PROTOCOL Performed By: #### L 501.080 ####[facility] [address] [place], [address] CBC W/Diff, Automatedon 04-2 Absolute Lymph 2.03 X10 3/uL Normal 0.83-4.51 [facility] Comment on above: Performed By: #### L 100.0100, L500.2500 ####[facility] [address] [place], [address] Absolute Neut 14.1 X10 3/uL High 2.0-7.7 [facility] Comment on above: Performed By: #### L 100.0100, L500.2500 ####[facility] [address] [place], [address] Basophils/100 WBC (Bld) 0.3 % Normal 0-1 [facility] Comment on above: Performed By: #### L 100.0100, L500.2500 ####[facility] [address] [place], [address] Eosinophils/100 WBC (Bld) 0.1 % Normal 0-5 [facility] Comment on above: Performed By: #### L 100.0100, L500.2500 ####[facility] [address] [place], [address] Erythrocyte distribution width (RBC) [Ratio] 13.3 % Normal 11.6-14.6 [facility] Comment on above: Performed By: #### L 100.0100, L500.2500 ####[facility] [address] [place], [address] Hematocrit (Bld) [Volume fraction] 36.8 % Low 37-47 [facility] Comment on above: Performed By: #### L 100.0100, L500.2500 ####[facility] [address] [place], [address] Hemoglobin (Bld) [Mass/Vol] 12.4 g/dL Normal 12.0-15.0 [facility] Comment on above: Performed By: #### L 100.0100, L500.2500 ####[facility] [address] [place], [address] IG% 0.800 Normal 0.0-0.9 [facility] Comment on above: Result Comment: IG% - Immature Granulocytes (promyelocytes, myelocytes andmetamyelocytes) > 1% indicates that a LEFT SHIFT is Present. Performed By: #### L 100.0100, L500.2500 ####[facility] [address] [place], [address] Lymphocytes/100 WBC (Bld) 11.8 % Low 19-41 [facility] Comment on above: Performed By: #### L 100.0100, L500.2500 ####[facility] [address] [place], [address] MCH (RBC) [Entitic mass] 29.5 pg Normal 27.0-32.0 [facility] Comment on above: Performed By: #### L 100.0100, L500.2500 ####[facility] [address] [place], [address] MCHC (RBC) [Mass/Vol] 33.7 g/dL Normal 32-36 [facility] Comment on above: Performed By: #### L 100.0100, L500.2500 ####[facility] [address] [place], [address] MCV (RBC) [Entitic vol] 87.4 fL Normal 81-99 [facility] Comment on above: Performed By: #### L 100.0100, L500.2500 ####[facility] [address] [place], [address] Monocytes/100 WBC (Bld) 5.0 % Normal 0-10 [facility] Comment on above: Performed By: #### L 100.0100, L500.2500 ####[facility] [address] [place], [address] Neutrophils/100 WBC (Bld) 82.0 % High 47-70 [facility] Comment on above: Performed By: #### L 100.0100, L500.2500 ####[facility] [address] [place], [address] Nucleated RBC (Bld) [#/Vol] 0 10*3/uL Normal 0-5 [facility] Comment on above: Performed By: #### L 100.0100, L500.2500 ####[facility] [address] [place], [address] Platelet mean volume (Bld) [Entitic vol] 12.4 fL High 6.2-12.0 [facility] Comment on above: Performed By: #### L 100.0100, L500.2500 ####[facility] [address] [place], [address] Platelets (Bld) [#/Vol] 165 10*3/uL Normal 150-450 [facility] Comment on above: Performed By: #### L 100.0100, L500.2500 ####[facility] [address] [place], [address] RBC (Bld) [#/Vol] 4.21 10*6/uL Normal 4.2-5.4 [facility] Comment on above: Performed By: #### L 100.0100, L500.2500 ####[facility] [address] [place], [address] RDW SD 42.4 fl Normal 35.1-43.9 [facility] Comment on above: Performed By: #### L 100.0100, L500.2500 ####[facility] [address] [place], [address] WBC (Bld) [#/Vol] 17.1 10*3/uL High 4.4-11.0 [facility] Comment on above: Performed By: #### L 100.0100, L500.2500 ####[facility] [address] [place], [address] Discharge Instructionon 11-27 Discharge Instruction Normal [facility] Basic Metabolic Profile (BMP )on 12-15-2024 BUN/CRE 19.3 RATIO Normal 10-20 [facility] Comment on above: Performed By: #### L 500.2500, L100.0500 ####[facility] [address] [place], [address] Calcium [Mass/Vol] 7.9 mg/dL Normal 7.6-11.0 [facility] Comment on above: Performed By: #### L 500.2500, L100.0500 ####[facility] [address] [place], [address] Chloride [Moles/Vol] 106 mmol/L Normal 98-108 [facility] Comment on above: Performed By: #### L 500.2500, L100.0500 ####[facility] [address] [place], [address] CO2 [Moles/Vol] 14.3 mmol/L Low 21.0-32.0 [facility] Comment on above: Performed By: #### L 500.2500, L100.0500 ####[facility] [address] [place], [address] Creatinine [Mass/Vol] 0.56 mg/dL Low 0.70-1.20 [facility] Comment on above: Performed By: #### L 500.2500, L100.0500 ####[facility] [address] [place], [address] ECRCL 153.51 ml/min Normal 50-250 [facility] Comment on above: Performed By: #### L 500.2500, L100.0500 ####[facility] [address] [place], [address] GAP 17 High 5-15 [facility] Comment on above: Performed By: #### L 500.2500, L100.0500 ####[facility] [address] [place], [address] GFR/1.73 sq M.predicted among non-blacks MDRD (S/P/Bld) [Vol rate/Area] 126 mL/min/{1.73_m2} Normal >60 [facility] Comment on above: Result Comment: mL/m in/1.73m2 CKD-EPI Creatinine Equation (2020) Performed By: #### L 500.2500, L100.0500 ####[facility] [address] [place], [address] Glucose [Mass/Vol] 40 mg/dL Invalid Interpretation Code 70-99 [facility] Comment on above: Result Comment: Crit ical Result(s) Called at: 0709 by:??ROSLYN MACK Results read back by same. Performed By: #### L 500.2500, L100.0500 ####[facility] [address] [place], [address] Potassium [Moles/Vol] 3.1 mmol/L Low 3.3-5.1 [facility] Comment on above: Performed By: #### L 500.2500, L100.0500 ####[facility] [address] [place], [address] Sodium [Moles/Vol] 138 mmol/L Normal 133-145 [facility] Comment on above: Performed By: #### L 500.2500, L100.0500 ####[facility] [address] [place], [address] Urea nitrogen [Mass/Vol] 11 mg/dL Normal 4-19 [facility] Comment on above: Performed By: #### L 500.2500, L100.0500 ####[facility] [address] [place], [address] Bedside Glucoseon 12-15-2024 FINGERSTICK GLU 260 mg/dL High -106 [facility] Comment on above: Result Comment: EDGAR GEMENT OF PATIENT CARE PER NURSING PROTOCOL Performed By: #### L 501.080 ####[facility] [address] [place], [address] FINGERSTICK GLU 307 mg/dL High [facility]106 [facility] Comment on above: Result Comment: EDGAR GEMENT OF PATIENT CARE PER NURSING PROTOCOL Performed By: #### L 501.080 ####[facility] [address] [place], [address] FINGERSTICK GLU 204 mg/dL High [address] [place] [address] Comment on above: Result Comment: EDGAR GEMENT OF PATIENT CARE PER NURSING PROTOCOL Performed By: #### L 501.080 ####[facility] [address] [place], [address] FINGERSTICK GLU 77 mg/dL Normal -[address] [place] [address] Comment on above: Result Comment: EDGAR GEMENT OF PATIENT CARE PER NURSING PROTOCOL Performed By: #### L 501.080 ####[facility] [address] [place], [address] FINGERSTICK GLU 34 mg/dL Invalid Interpretation Code -[address] [place] [address] Comment on above: Result Comment: EDGAR GEMENT OF PATIENT CARE PER NURSING PROTOCOL Performed By: #### L 501.080 ####[facility] [address] [place], [address] FINGERSTICK GLU 109 mg/dL High [address] [place] [address] Comment on above: Result Comment: EDGAR GEMENT OF PATIENT CARE PER NURSING PROTOCOL Performed By: #### L 501.080 ####[facility] [address] [place], [address] CBC-Complete Blood Cnt No Di ffon 12-15-2024 Erythrocyte distribution width (RBC) [Ratio] 13.1 % Normal 11.6-14.6 [facility] Comment on above: Performed By: #### L 500.2500, L100.0500 ####[facility] [address] [place], [address] Hematocrit (Bld) [Volume fraction] 36.0 % Low 37-47 [facility] Comment on above: Performed By: #### L 500.2500, L100.0500 ####[facility] [address] [place], [address] Hemoglobin (Bld) [Mass/Vol] 12.2 g/dL Normal 12.0-15.0 [facility] Comment on above: Performed By: #### L 500.2500, L100.0500 ####[facility] [address] [place], [address] MCH (RBC) [Entitic mass] 30.1 pg Normal 27.0-32.0 [facility] Comment on above: Performed By: #### L 500.2500, L100.0500 ####[facility] [address] [place], [address] MCHC (RBC) [Mass/Vol] 33.9 g/dL Normal 32-36 [facility] Comment on above: Performed By: #### L 500.2500, L100.0500 ####[facility] [address] [place], [address] MCV (RBC) [Entitic vol] 88.9 fL Normal 81-99 [facility] Comment on above: Performed By: #### L 500.2500, L100.0500 ####[facility] [address] [place], [address] Platelet mean volume (Bld) [Entitic vol] 12.9 fL High 6.2-12.0 [facility] Comment on above: Performed By: #### L 500.2500, L100.0500 ####[facility] [address] [place], [address] Platelets (Bld) [#/Vol] 145 10*3/uL Low 150-450 [facility] Comment on above: Performed By: #### L 500.2500, L100.0500 ####[facility] [address] [place], [address] RBC (Bld) [#/Vol] 4.05 10*6/uL Low 4.2-5.4 [facility] Comment on above: Performed By: #### L 500.2500, L100.0500 ####[facility] [address] [place], [address] RDW SD 42.8 fl Normal 35.1-43.9 [facility] Comment on above: Performed By: #### L 500.2500, L100.0500 ####[facility] [address] [place], [address] WBC (Bld) [#/Vol] 16.4 10*3/uL High 4.4-11.0 [facility] Comment on above: Performed By: #### L 500.2500, L100.0500 ####[facility] [address] [place], [address] Basic Metabolic Profile (BMP )on 12-14-2024 BUN/CRE 17.1 RATIO Normal 10-20 [facility] Comment on above: Performed By: #### L 500.2500 ####[facility] [address] [place], [address] Calcium [Mass/Vol] 7.7 mg/dL Normal 7.6-11.0 [facility] Comment on above: Performed By: #### L 500.2500 ####[facility] [address] [place], [address] Chloride [Moles/Vol] 108 mmol/L Normal 98-108 [facility] Comment on above: Performed By: #### L 500.2500 ####[facility] [address] [place], [address] CO2 [Moles/Vol] 15.3 mmol/L Low 21.0-32.0 [facility] Comment on above: Performed By: #### L 500.2500 ####[facility] [address] [place], [address] Creatinine [Mass/Vol] 0.67 mg/dL Low 0.70-1.20 [facility] Comment on above: Performed By: #### L 500.2500 ####[facility] [address] [place], [address] ECRCL 138.78 ml/min Normal 50-250 [facility] Comment on above: Performed By: #### L 500.2500 ####[facility] [address] [place], [address] GAP 15 Normal 5-15 [facility] Comment on above: Performed By: #### L 500.2500 ####[facility] [address] [place], [address] GFR/1.73 sq M.predicted among non-blacks MDRD (S/P/Bld) [Vol rate/Area] 121 mL/min/{1.73_m2} Normal >60 [facility] Comment on above: Result Comment: mL/m in/1.73m2 CKD-EPI Creatinine Equation (2020) Performed By: #### L 500.2500 ####[facility] [address] [place], [address] Glucose [Mass/Vol] 180 mg/dL High 70-99 [facility] Comment on above: Performed By: #### L 500.2500 ####[facility] [address] [place], [address] Potassium [Moles/Vol] 3.3 mmol/L Normal 3.3-5.1 [facility] Comment on above: Performed By: #### L 500.2500 ####[facility] [address] [place], [address] Sodium [Moles/Vol] 138 mmol/L Normal 133-145 [facility] Comment on above: Performed By: #### L 500.2500 ####[facility] [address] [place], [address] Urea nitrogen [Mass/Vol] 11 mg/dL Normal 4-19 [facility] Comment on above: Performed By: #### L 500.2500 ####[facility] [address] [place], [address] Bedside Glucoseon 12-14-2024 FINGERSTICK GLU 186 mg/dL High 74-106 [facility] Comment on above: Result Comment: EDGAR GEMENT OF PATIENT CARE PER NURSING PROTOCOL Performed By: #### L 501.080 ####[facility] [address] [place], [address] FINGERSTICK GLU 291 mg/dL High 74-106 [facility] Comment on above: Result Comment: EDGAR GEMENT OF PATIENT CARE PER NURSING PROTOCOL Performed By: #### L 501.080 ####[facility] [address] [place], [address] FINGERSTICK GLU 352 mg/dL High 74-106 [facility] Comment on above: Result Comment: EDGAR GEMENT OF PATIENT CARE PER NURSING PROTOCOL Performed By: #### L 501.080 ####[facility] [address] [place], [address] Beta-Hydroxbytyrateon 2024 BETA-HYDROXYBUT 1.9 mmol/L Normal 0.0-0.3 [facility] Comment on above: Performed By: #### L 700.6800, L501.2450, L500.4050, L501.6901 ####[facility] [address] [place], [address] CBC W/Diff, Automatedon 11-26 Absolute Lymph 2.40 X10 3/uL Normal 0.83-4.51 [facility] Comment on above: Performed By: #### L 100.0100 ####[facility] [address] [place], [address] Absolute Neut 12.5 X10 3/uL High 2.0-7.7 [facility] Comment on above: Performed By: #### L 100.0100 ####[facility] [address] [place], [address] Basophils/100 WBC (Bld) 0.4 % Normal 0-1 [facility] Comment on above: Performed By: #### L 100.0100 ####[facility] [address] [place], [address] Eosinophils/100 WBC (Bld) 0.1 % Normal 0-5 [facility] Comment on above: Performed By: #### L 100.0100 ####[facility] [address] [place], [address] Erythrocyte distribution width (RBC) [Ratio] 12.9 % Normal 11.6-14.6 [facility] Comment on above: Performed By: #### L 100.0100 ####[facility] [address] [place], [address] Hematocrit (Bld) [Volume fraction] 39.9 % Normal 37-47 [facility] Comment on above: Performed By: #### L 100.0100 ####[facility] [address] [place], [address] Hemoglobin (Bld) [Mass/Vol] 13.7 g/dL Normal 12.0-15.0 [facility] Comment on above: Performed By: #### L 100.0100 ####[facility] [address] [place], [address] IG% 0.800 Normal 0.0-0.9 [facility] Comment on above: Result Comment: IG% - Immature Granulocytes (promyelocytes, myelocytes andmetamyelocytes) > 1% indicates that a LEFT SHIFT is Present. Performed By: #### L 100.0100 ####[facility] [address] [place], [address] Lymphocytes/100 WBC (Bld) 15.1 % Low 19-41 [facility] Comment on above: Performed By: #### L 100.0100 ####[facility] [address] [place], [address] MCH (RBC) [Entitic mass] 29.7 pg Normal 27.0-32.0 [facility] Comment on above: Performed By: #### L 100.0100 ####[facility] [address] [place], [address] MCHC (RBC) [Mass/Vol] 34.3 g/dL Normal 32-36 [facility] Comment on above: Performed By: #### L 100.0100 ####[facility] [address] [place], [address] MCV (RBC) [Entitic vol] 86.4 fL Normal 81-99 [facility] Comment on above: Performed By: #### L 100.0100 ####[facility] [address] [place], [address] Monocytes/100 WBC (Bld) 4.9 % Normal 0-10 [facility] Comment on above: Performed By: #### L 100.0100 ####[facility] [address] [place], [address] Neutrophils/100 WBC (Bld) 78.7 % High 47-70 [facility] Comment on above: Performed By: #### L 100.0100 ####[facility] [address] [place], [address] Nucleated RBC (Bld) [#/Vol] 0 10*3/uL Normal 0-5 [facility] Comment on above: Performed By: #### L 100.0100 ####[facility] [address] [place], [address] Platelet mean volume (Bld) [Entitic vol] 12.6 fL High 6.2-12.0 [facility] Comment on above: Performed By: #### L 100.0100 ####[facility] [address] [place], [address] Platelets (Bld) [#/Vol] 159 10*3/uL Normal 150-450 [facility] Comment on above: Performed By: #### L 100.0100 ####[facility] [address] [place], [address] RBC (Bld) [#/Vol] 4.62 10*6/uL Normal 4.2-5.4 [facility] Comment on above: Performed By: #### L 100.0100 ####[facility] [address] [place], [address] RDW SD 40.1 fl Normal 35.1-43.9 [facility] Comment on above: Performed By: #### L 100.0100 ####[facility] [address] [place], [address] WBC (Bld) [#/Vol] 15.9 10*3/uL High 4.4-11.0 [facility] Comment on above: Performed By: #### L 100.0100 ####[facility] [address] [place], [address] Comprehensive Metabolic Prof ilon 12-14-2024 Albumin [Mass/Vol] 4.2 g/dL Normal 3.5-5.0 [facility] Comment on above: Performed By: #### L 700.6800, L501.2450, L500.4050, L501.6901 ####[facility] [address] [place], [address] Albumin/Globulin [Mass ratio] 1.8 {ratio} Normal 0.9-2.4 [facility] Comment on above: Performed By: #### L 700.6800, L501.2450, L500.4050, L501.6901 ####[facility] [address] [place], [address] ALK PHOS 76 U/L Normal 35-104 [facility] Comment on above: Performed By: #### L 700.6800, L501.2450, L500.4050, L501.6901 ####[facility] [address] [place], [address] ALT [Catalytic activity/Vol] 11 U/L Normal <=34 [facility] Comment on above: Performed By: #### L 700.6800, L501.2450, L500.4050, L501.6901 ####[facility] [address] [place], [address] AST [Catalytic activity/Vol] 16 U/L Normal <=31 [facility] Comment on above: Performed By: #### L 700.6800, L501.2450, L500.4050, L501.6901 ####[facility] [address] [place], [address] Bilirubin [Mass/Vol] 0.92 mg/dL Normal 0.00-1.30 [facility] Comment on above: Performed By: #### L 700.6800, L501.2450, L500.4050, L501.6901 ####[facility] [address] [place], [address] BUN/CRE 18.2 RATIO Normal 10-20 [facility] Comment on above: Performed By: #### L 700.6800, L501.2450, L500.4050, L501.6901 ####[facility] [address] [place], [address] Calcium [Mass/Vol] 8.2 mg/dL Normal 7.6-11.0 [facility] Comment on above: Performed By: #### L 700.6800, L501.2450, L500.4050, L501.6901 ####[facility] [address] [place], [address] Chloride [Moles/Vol] 104 mmol/L Normal 98-108 [facility] Comment on above: Performed By: #### L 700.6800, L501.2450, L500.4050, L501.6901 ####[facility] [address] [place], [address] CO2 [Moles/Vol] 15.1 mmol/L Low 21.0-32.0 [facility] Comment on above: Performed By: #### L 700.6800, L501.2450, L500.4050, L501.6901 ####[facility] [address] [place], [address] Creatinine [Mass/Vol] 0.74 mg/dL Normal 0.70-1.20 [facility] Comment on above: Performed By: #### L 700.6800, L501.2450, L500.4050, L501.6901 ####[facility] [address] [place], [address] ECRCL 125.65 ml/min Normal 50-250 [facility] Comment on above: Performed By: #### L 700.6800, L501.2450, L500.4050, L501.6901 ####[facility] [address] [place], [address] GAP 17 High 5-15 [facility] Comment on above: Performed By: #### L 700.6800, L501.2450, L500.4050, L501.6901 ####[facility] [address] [place], [address] GFR/1.73 sq M.predicted among non-blacks MDRD (S/P/Bld) [Vol rate/Area] 112 mL/min/{1.73_m2} Normal >60 [facility] Comment on above: Result Comment: mL/m in/1.73m2 CKD-EPI Creatinine Equation (2020) Performed By: #### L 700.6800, L501.2450, L500.4050, L501.6901 ####[facility] [address] [place], [address] Globulin (S) [Mass/Vol] 2.4 g/dL Normal 2.2-4.2 [facility] Comment on above: Performed By: #### L 700.6800, L501.2450, L500.4050, L501.6901 ####[facility] [address] [place], [address] Glucose [Mass/Vol] 329 mg/dL High 70-99 [facility] Comment on above: Performed By: #### L 700.6800, L501.2450, L500.4050, L501.6901 ####[facility] [address] [place], [address] Potassium [Moles/Vol] 3.6 mmol/L Normal 3.3-5.1 [facility] Comment on above: Performed By: #### L 700.6800, L501.2450, L500.4050, L501.6901 ####[facility] [address] [place], [address] Sodium [Moles/Vol] 136 mmol/L Normal 133-145 [facility] Comment on above: Performed By: #### L 700.6800, L501.2450, L500.4050, L501.6901 ####[facility] [address] [place], [address] T PROT 6.5 g/dL Normal 5.9-8.4 [facility] Comment on above: Performed By: #### L 700.6800, L501.2450, L500.4050, L501.6901 ####[facility] [address] [place], [address] Urea nitrogen [Mass/Vol] 13 mg/dL Normal - [facility] Comment on above: Performed By: #### L 700.6800, L501.2450, L500.4050, L501.6901 ####[facility] [address] [place], [address] Emergency Department Summary on 12-14-2024 Emergency Department Summary Normal [facility] H AND P Exam - Hospitaliston 12-14-2024 H&P Exam - Hospitalist Normal [facility] Lipaseon 12-14-2024 Lipase [Catalytic activity/Vol] 13 U/L Normal 13-75 [facility] Comment on above: Result Comment: Plea se note:LIPASE revised reference range effective 22.New Lipase methodology. Expected to produce lower valuesthan the previous assay method.NEW Reference Range: 13 - 75 U/L Performed By: #### L 700.6800, L501.2450, L500.4050, L501.6901 ####[facility] [address] [place], [address] Magnesiumon 12-14-2024 Magnesium [Mass/Vol] 1.5 mg/dL Normal 1.5-2.2 [facility] Comment on above: Performed By: #### L 501.5200, L501.2300 ####[facility] [address] [place], [address] Phosphoruson 12-14-2024 Phosphate [Mass/Vol] 1.4 mg/dL Invalid Interpretation Code 2.7-4.5 [facility] Comment on above: Performed By: #### L 501.5200, L501.2300 ####[facility] [address] [place], [address] ,Serum,hCG Quali.on 12-14-2024 HCG, SERUM QUAL Negative Normal [facility] Comment on above: Performed By: #### L 700.6800, L501.2450, L500.4050, L501.6901 ####[facility] [address] [place], [address] Urinalysis, Completeon 12-14 EPI,SQUAMOUS 0-5 SEEN Normal 5-10 [facility] Comment on above: Order Comment: CLEAN CATCH Performed By: #### L 400.0001 ####[facility] [address] [place], [address] BACTERIA 0 SEEN Normal None Seen [facility] Comment on above: Order Comment: CLEAN CATCH Performed By: #### L 400.0001 ####[facility] [address] [place], [address] Mucus Ql (Urine sed) 0 SEEN Normal [facility] Comment on above: Order Comment: CLEAN CATCH Performed By: #### L 400.0001 ####[facility] [address] [place], [address] RBC 0 SEEN Normal 0-5 [facility] Comment on above: Order Comment: CLEAN CATCH Performed By: #### L 400.0001 ####[facility] [address] [place], [address] WBC 0 SEEN Normal 0-5 [facility] Comment on above: Order Comment: CLEAN CATCH Performed By: #### L 400.0001 ####[facility] [address] [place], [address] Venous Blood Gason 5 Blood Gas Type ISABELLE Normal [facility] Comment on above: Performed By: #### L 9000.0810 ####[facility] [address] [place], [address] CO2 [Moles/Vol] 16 mmol/L Low 23-33 [facility] Comment on above: Performed By: #### L 9000.0810 ####[facility] [address] [place], [address] HCO3 (Bld) [Moles/Vol] 15 mmol/L Low 22-26 [facility] Comment on above: Performed By: #### L 9000.0810 ####[facility] [address] [place], [address] O2 Delivery Dev Room Air [facility] Comment on above: Performed By: #### L 9000.0810 ####[facility] [address] [place], [address] SITE Not entered [facility] Comment on above: Performed By: #### L 9000.0810 ####[facility] [address] [place], [address] VBG BE -9 mmol/L Low -1.0-3.5 [facility] Comment on above: Performed By: #### L 9000.0810 ####[facility] [address] [place], [address] VBG pCO2 21.7 mmHg Low 41-51 [facility] Comment on above: Performed By: #### L 9000.0810 ####[facility] [address] [place], [address] VBG pH 7.45 High 7.32-7.42 [facility] Comment on above: Performed By: #### L 9000.0810 ####[facility] [address] [place], [address] VBG PO2 43 mmHg High 25-40 [facility] Comment on above: Performed By: #### L 9000.0810 ####[facility] [address] [place], [address] VBG SO2 83 High 50-70 [facility] Comment on above: Performed By: #### L 9000.0810 ####[facility] [address] [place], [address] CBC W/Diff, Automatedon PLT EST ADEQUATE Normal ADEQ [facility] Comment on above: Performed By: #### L 500.4050, L501.9985, L100.0100, L503.6030, L509.6001, L501.9520, L506.1001 ####[facility] [address] [place], [address] Comprehensive Metabolic Prof ilon 11-28-2024 Albumin [Mass/Vol] 4.1 g/dL Normal 3.5-5.0 [facility] Comment on above: Performed By: #### L 500.4050, L501.9985, L100.0100, L503.6030, L509.6001, L501.9520, L506.1001 ####[facility] [address] [place], [address] Albumin/Globulin [Mass ratio] 1.8 {ratio} Normal 0.9-2.4 [facility] Comment on above: Performed By: #### L 500.4050, L501.9985, L100.0100, L503.6030, L509.6001, L501.9520, L506.1001 ####[facility] [address] [place], [address] ALK PHOS 68 U/L Normal 35-104 [facility] Comment on above: Performed By: #### L 500.4050, L501.9985, L100.0100, L503.6030, L509.6001, L501.9520, L506.1001 ####[facility] [address] [place], [address] ALT [Catalytic activity/Vol] 6 U/L Normal <=34 [facility] Comment on above: Performed By: #### L 500.4050, L501.9985, L100.0100, L503.6030, L509.6001, L501.9520, L506.1001 ####[facility] [address] [place], [address] AST [Catalytic activity/Vol] 16 U/L Normal <=31 [facility] Comment on above: Performed By: #### L 500.4050, L501.9985, L100.0100, L503.6030, L509.6001, L501.9520, L506.1001 ####[facility] [address] [place], [address] Bilirubin [Mass/Vol] 0.29 mg/dL Normal 0.00-1.30 [facility] Comment on above: Performed By: #### L 500.4050, L501.9985, L100.0100, L503.6030, L509.6001, L501.9520, L506.1001 ####[facility] [address] [place], [address] BUN/CRE 19.9 RATIO Normal 10-20 [facility] Comment on above: Performed By: #### L 500.4050, L501.9985, L100.0100, L503.6030, L509.6001, L501.9520, L506.1001 ####[facility] [address] [place], [address] Calcium [Mass/Vol] 9.1 mg/dL Normal 7.6-11.0 [facility] Comment on above: Performed By: #### L 500.4050, L501.9985, L100.0100, L503.6030, L509.6001, L501.9520, L506.1001 ####[facility] [address] [place], [address] Chloride [Moles/Vol] 107 mmol/L Normal 98-108 [facility] Comment on above: Performed By: #### L 500.4050, L501.9985, L100.0100, L503.6030, L509.6001, L501.9520, L506.1001 ####[facility] [address] [place], [address] CO2 [Moles/Vol] 20.4 mmol/L Low 21.0-32.0 [facility] Comment on above: Performed By: #### L 500.4050, L501.9985, L100.0100, L503.6030, L509.6001, L501.9520, L506.1001 ####[facility] [address] [place], [address] Creatinine [Mass/Vol] 0.59 mg/dL Low 0.70-1.20 [facility] Comment on above: Performed By: #### L 500.4050, L501.9985, L100.0100, L503.6030, L509.6001, L501.9520, L506.1001 ####[facility] [address] [place], [address] GAP 11 Normal 5-15 [facility] Comment on above: Performed By: #### L 500.4050, L501.9985, L100.0100, L503.6030, L509.6001, L501.9520, L506.1001 ####[facility] [address] [place], [address] GFR/1.73 sq M.predicted among non-blacks MDRD (S/P/Bld) [Vol rate/Area] 124 mL/min/{1.73_m2} Normal >60 [facility] Comment on above: Result Comment: mL/m in/1.73m2 CKD-EPI Creatinine Equation (2020) Performed By: #### L 500.4050, L501.9985, L100.0100, L503.6030, L509.6001, L501.9520, L506.1001 ####[facility] [address] [place], [address] Globulin (S) [Mass/Vol] 2.3 g/dL Normal 2.2-4.2 [facility] Comment on above: Performed By: #### L 500.4050, L501.9985, L100.0100, L503.6030, L509.6001, L501.9520, L506.1001 ####[facility] [address] [place], [address] Glucose [Mass/Vol] 222 mg/dL High 70-99 [facility] Comment on above: Performed By: #### L 500.4050, L501.9985, L100.0100, L503.6030, L509.6001, L501.9520, L506.1001 ####[facility] [address] [place], [address] Potassium [Moles/Vol] 4.2 mmol/L Normal 3.3-5.1 [facility] Comment on above: Performed By: #### L 500.4050, L501.9985, L100.0100, L503.6030, L509.6001, L501.9520, L506.1001 ####[facility] [address] [place], [address] Sodium [Moles/Vol] 138 mmol/L Normal 133-145 [facility] Comment on above: Performed By: #### L 500.4050, L501.9985, L100.0100, L503.6030, L509.6001, L501.9520, L506.1001 ####[facility] [address] [place], [place], [id number] T PROT 6.4 g/dL Normal 5.9-8.4 [facility] Comment on above: Performed By: #### L 500.4050, L501.9985, L100.0100, L503.6030, L509.6001, L501.9520, L506.1001 ####[facility] [address] [place], [place], [address] Urea nitrogen [Mass/Vol] 12 mg/dL Normal 4-19 [facility] Comment on above: Performed By: #### L 500.4050, L501.9985, L100.0100, L503.6030, L509.6001, L501.9520, L506.1001 ####[facility] [address] [place], [place], [phone] Hemoglobin A1con 11-28-2024 HbA1c (Bld) [Mass fraction] 10.1 % Normal <=5.6 [facility] Comment on above: Performed By: #### L 500.4050, L501.9985, L100.0100, L503.6030, L509.6001, L501.9520, L506.1001 ####[facility] [address] [place], [address] Iron+Iron Binding Capacityon 11-28-2024 Iron [Mass/Vol] 71 ug/dL Normal 50-170 [facility] Comment on above: Performed By: #### L 500.4050, L501.9985, L100.0100, L503.6030, L509.6001, L501.9520, L506.1001 ####[facility] [address] [place], [address] IRON SATURATION 28.0 Normal 13-59 [facility] Comment on above: Performed By: #### L 500.4050, L501.9985, L100.0100, L503.6030, L509.6001, L501.9520, L506.1001 ####[facility] [address] [place], [address] TIBC 248 ug/dL Low 250-450 [facility] Comment on above: Performed By: #### L 500.4050, L501.9985, L100.0100, L503.6030, L509.6001, L501.9520, L506.1001 ####[facility] [address] [place], [address] UIBC 177 ug/dL Low 228-428 [facility] Comment on above: Performed By: #### L 500.4050, L501.9985, L100.0100, L503.6030, L509.6001, L501.9520, L506.1001 ####[facility] [address] [place], [address] L509.6001on 11-28-2024 CORTISOL 5.66 ug/dL Low 6.02-18.40 [facility] Comment on above: Performed By: #### L 500.4050, L501.9985, L100.0100, L503.6030, L509.6001, L501.9520, L506.1001 ####[facility] [address] [place], [address] Thyroid Stim Hormone (TSH)on 11-28-2024 TSH 0.451 uIU/mL Normal 0.300-4.200 [facility] Comment on above: Performed By: #### L 500.4050, L501.9985, L100.0100, L503.6030, L509.6001, L501.9520, L506.1001 ####[facility] [address] [place], [address] Vitamin D,25 Hydroxyon 11-28 Vitamin D 25-OH 15.7 ng/mL Low 30-100 [facility] Comment on above: Result Comment: Shira min D StatusDeficiency: <20 ng/mL (50nmol/L)Insufficiency: 20-30 ng/mL (50-75 nmol/L)Sufficiency: 30-100 ng/mL (75-250 nmol/L)Toxicity: >100 ng/mL (>250 nmol/L) Performed By: #### L 500.4050, L501.9985, L100.0100, L503.6030, L509.6001, L501.9520, L506.1001 ####[facility] [address] [place], [address] CNCOon 11-13-2024 CNCO Letter Text Normal [facility] CNOVon 11-11-2024 CNOV Office Visit (GASTSP ) KATHLEEN VILLA ([id number]) 1995 F CHT Date Time Provider Department [...] every 24 hours. 38.7 mL 1 Insulin [place], Disposable, (PEN NEEDLE) 32 gauge x 5/32 [...] no edema RESPIRATORY: No dyspnea : neg PULVERIZER TENDER: neg The remainder of the review of [...] no hepat (more content not included)... Normal [facility] ([id number]) 1995 F CHT Date Time Provider Department 11/11/24 LETICIA HYLTON [facility] During your visit today, we recorded the following information about you: Guero Hammer LPN 11/11/2024 2:03 PM Signed Please let her know that her x-ray demonstrates a significantly large amount of stool throughout the colon. [facility] spoke with patient [...] Units subcutaneously every 24 hours. 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 Normal [facility] XR ABDOMEN 1V SUPINEon 11-11 XR [...] on Nov 11 2024 11:13AM EST [id number] [facility] XR Abdomen Supine and Uprigh ton 11-11-2024 IMPRESSION: Moderate-large colonic stool burden. No dilated bowel. Transcribed Using Voice Recognition Transcribe Date/Time: Nov 11 2024 11:10A Dictated by: TRES EVANS DO This examination was interpreted and the report reviewed and electronically signed by: TRES EVANS DO on Nov 11 2024 11:13AM EST [facility] * * *Final Report* * [...] right lower abdomen/pelvis. No acute bony abnormality. [facility] Provider, Ama Armando [facility] - 11/11/2024 * * *Final Report* [...] DO on Nov 11 2024 11:13AM EST [facility] Radiology Study observation (narrative) [facility] XR Abdomen Supine and Uprigh tOrdered By: [facility] Provider on 11-11-2024 [facility] Basic Metabolic Profile (BMP )on 11-06-2024 BUN/CRE 16.8 RATIO Normal 10-20 [facility] Comment on above: Performed By: #### L 500.2500 ####[facility] [address] [place], [address] Calcium [Mass/Vol] 8.0 mg/dL Normal 7.6-11.0 [facility] Comment on above: Performed By: #### L 500.2500 ####[facility] [address] [place], [address] Chloride [Moles/Vol] 104 mmol/L Normal 98-108 [facility] Comment on above: Performed By: #### L 500.2500 ####[facility] [address] [place], [address] CO2 [Moles/Vol] 21.1 mmol/L Normal 21.0-32.0 [facility] Comment on above: Performed By: #### L 500.2500 ####[facility] [address] [place], [address] Creatinine [Mass/Vol] 0.64 mg/dL Low 0.70-1.20 [facility] Comment on above: Performed By: #### L 500.2500 ####[facility] [address] [place], [address] ECRCL 134.33 ml/min Normal 50-250 [facility] Comment on above: Performed By: #### L 500.2500 ####[facility] [address] [place], [address] GAP 12 Normal 5-15 [facility] Comment on above: Performed By: #### L 500.2500 ####[facility] [address] [place], [address] GFR/1.73 sq M.predicted among non-blacks MDRD (S/P/Bld) [Vol rate/Area] 122 mL/min/{1.73_m2} Normal >60 [facility] Comment on above: Result Comment: mL/m in/1.73m2 CKD-EPI Creatinine Equation (2020) Performed By: #### L 500.2500 ####[facility] [address] [place], [address] Glucose [Mass/Vol] 64 mg/dL Low 70-99 [facility] Comment on above: Performed By: #### L 500.2500 ####[facility] [address] [place], [address] Potassium [Moles/Vol] 3.3 mmol/L Normal 3.3-5.1 [facility] Comment on above: Performed By: #### L 500.2500 ####[facility] [address] [place], [address] Sodium [Moles/Vol] 137 mmol/L Normal 133-145 [facility] Comment on above: Performed By: #### L 500.2500 ####[facility] [address] [place], [address] Urea nitrogen [Mass/Vol] 11 mg/dL Normal 4-19 [facility] Comment on above: Performed By: #### L 500.2500 ####[facility] [address] [place], [address] Bedside Glucoseon 11-06-2024 FINGERSTICK GLU 100 mg/dL Normal 74-106 [facility] Comment on above: Result Comment: EDGAR GEMENT OF PATIENT CARE PER NURSING PROTOCOL Performed By: #### L 501.080 ####[facility] [address] [place], [address] FINGERSTICK GLU 151 mg/dL High 74-106 [facility] Comment on above: Result Comment: EDGAR GEMENT OF PATIENT CARE PER NURSING PROTOCOL Performed By: #### L 501.080 ####[facility] [address] [place], [address] FINGERSTICK GLU 153 mg/dL High 74-106 [facility] Comment on above: Result Comment: EDGAR GEMENT OF PATIENT CARE PER NURSING PROTOCOL Performed By: #### L 501.080 ####[facility] [address] [place], [address] FINGERSTICK GLU 50 mg/dL Low 74-106 [facility] Comment on above: Result Comment: EDGAR GEMENT OF PATIENT CARE PER NURSING PROTOCOL Performed By: #### L 501.080 ####[facility] [address] [place], [address] FINGERSTICK GLU 141 mg/dL High 74-106 [facility] Comment on above: Result Comment: EDGAR GEMENT OF PATIENT CARE PER NURSING PROTOCOL Performed By: #### L 501.080 ####[facility] [address] [place], [address] FINGERSTICK GLU 129 mg/dL High 74-106 [facility] Comment on above: Result Comment: EDGAR HUNG OF PATIENT CARE PER NURSING PROTOCOL Performed By: #### L 501.080 ####[facility] [address] [place], [address] CBC W/Diff, Automatedon 10-26 Absolute Lymph 2.60 X10 3/uL Normal 0.83-4.51 [facility] Comment on above: Performed By: #### L 100.0100 ####[facility] [address] [place], [address] Absolute Neut 7.6 X10 3/uL Normal 2.0-7.7 [facility] Comment on above: Performed By: #### L 100.0100 ####[facility] [address] [place], [address] Basophils/100 WBC (Bld) 0.5 % Normal 0-1 [facility] Comment on above: Performed By: #### L 100.0100 ####[facility] [address] [place], [address] Eosinophils/100 WBC (Bld) 0.4 % Normal 0-5 [facility] Comment on above: Performed By: #### L 100.0100 ####[facility] [address] [place], [address] Erythrocyte distribution width (RBC) [Ratio] 13.7 % Normal 11.6-14.6 [facility] Comment on above: Performed By: #### L 100.0100 ####[facility] [address] [place], [address] Hematocrit (Bld) [Volume fraction] 36.0 % Low 37-47 [facility] Comment on above: Performed By: #### L 100.0100 ####[facility] [address] [place], [address] Hemoglobin (Bld) [Mass/Vol] 12.2 g/dL Normal 12.0-15.0 [facility] Comment on above: Performed By: #### L 100.0100 ####[facility] [address] [place], [address] IG% 1.000 High 0.0-0.9 [facility] Comment on above: Result Comment: IG% - Immature Granulocytes (promyelocytes, myelocytes andmetamyelocytes) > 1% indicates that a LEFT SHIFT is Present. Performed By: #### L 100.0100 ####[facility] [address] [place], [address] Lymphocytes/100 WBC (Bld) 23.4 % Normal 19-41 [facility] Comment on above: Performed By: #### L 100.0100 ####[facility] [address] [place], [address] MCH (RBC) [Entitic mass] 29.7 pg Normal 27.0-32.0 [facility] Comment on above: Performed By: #### L 100.0100 ####[facility] [address] [place], [address] MCHC (RBC) [Mass/Vol] 33.9 g/dL Normal 32-36 [facility] Comment on above: Performed By: #### L 100.0100 ####[facility] [address] [place], [address] MCV (RBC) [Entitic vol] 87.6 fL Normal 81-99 [facility] Comment on above: Performed By: #### L 100.0100 ####[facility] [address] [place], [address] Monocytes/100 WBC (Bld) 6.7 % Normal 0-10 [facility] Comment on above: Performed By: #### L 100.0100 ####[facility] [address] [place], [address] Neutrophils/100 WBC (Bld) 68.0 % Normal 47-70 [facility] Comment on above: Performed By: #### L 100.0100 ####[facility] [address] [place], [address] Nucleated RBC (Bld) [#/Vol] 0 10*3/uL Normal 0-5 [facility] Comment on above: Performed By: #### L 100.0100 ####[facility] [address] [place], [address] Platelet mean volume (Bld) [Entitic vol] 10.8 fL Normal 6.2-12.0 [facility] Comment on above: Performed By: #### L 100.0100 ####[facility] [address] [place], [address] Platelets (Bld) [#/Vol] 188 10*3/uL Normal 150-450 [facility] Comment on above: Performed By: #### L 100.0100 ####[facility] [address] [place], [address] RBC (Bld) [#/Vol] 4.11 10*6/uL Low 4.2-5.4 [facility] Comment on above: Performed By: #### L 100.0100 ####[facility] [address] [place], [address] RDW SD 43.6 fl Normal 35.1-43.9 [facility] Comment on above: Performed By: #### L 100.0100 ####[facility] [address] [place], [address] WBC (Bld) [#/Vol] 11.1 10*3/uL High 4.4-11.0 [facility] Comment on above: Performed By: #### L 100.0100 ####[facility] [address] [place], [address] Comprehensive Metabolic Prof ilon 11-06-2024 Albumin [Mass/Vol] 3.6 g/dL Normal 3.5-5.0 [facility] Comment on above: Order Comment: CMP-T IMED FOR A Q6 BMP Performed By: #### L 501.5200, L501.2300, L500.4050 ####[facility] [address] [place], [address] Albumin/Globulin [Mass ratio] 1.6 {ratio} Normal 0.9-2.4 [facility] Comment on above: Order Comment: CMP-T IMED FOR A Q6 BMP Performed By: #### L 501.5200, L501.2300, L500.4050 ####[facility] [address] [place], [address] ALK PHOS 76 U/L Normal 35-104 [facility] Comment on above: Order Comment: CMP-T IMED FOR A Q6 BMP Performed By: #### L 501.5200, L501.2300, L500.4050 ####[facility] [address] [place], [address] ALT [Catalytic activity/Vol] 14 U/L Normal <=34 [facility] Comment on above: Order Comment: CMP-T IMED FOR A Q6 BMP Performed By: #### L 501.5200, L501.2300, L500.4050 ####[facility] [address] [place], [address] AST [Catalytic activity/Vol] 17 U/L Normal <=31 [facility] Comment on above: Order Comment: CMP-T IMED FOR A Q6 BMP Performed By: #### L 501.5200, L501.2300, L500.4050 ####[facility] [address] [place], [address] Bilirubin [Mass/Vol] 0.91 mg/dL Normal 0.00-1.30 [facility] Comment on above: Order Comment: CMP-T IMED FOR A Q6 BMP Performed By: #### L 501.5200, L501.2300, L500.4050 ####[facility] [address] [place], [address] BUN/CRE 12.2 RATIO Normal 10-20 [facility] Comment on above: Order Comment: CMP-T IMED FOR A Q6 BMP Performed By: #### L 501.5200, L501.2300, L500.4050 ####[facility] [address] [place], [address] Calcium [Mass/Vol] 8.2 mg/dL Normal 7.6-11.0 [facility] Comment on above: Order Comment: CMP-T IMED FOR A Q6 BMP Performed By: #### L 501.5200, L501.2300, L500.4050 ####[facility] [address] [place], [address] Chloride [Moles/Vol] 105 mmol/L Normal 98-108 [facility] Comment on above: Order Comment: CMP-T IMED FOR A Q6 BMP Performed By: #### L 501.5200, L501.2300, L500.4050 ####[facility] [address] [place], [address] CO2 [Moles/Vol] 22.2 mmol/L Normal 21.0-32.0 [facility] Comment on above: Order Comment: CMP-T IMED FOR A Q6 BMP Performed By: #### L 501.5200, L501.2300, L500.4050 ####[facility] [address] [place], [address] Creatinine [Mass/Vol] 0.61 mg/dL Low 0.70-1.20 [facility] Comment on above: Order Comment: CMP-T IMED FOR A Q6 BMP Performed By: #### L 501.5200, L501.2300, L500.4050 ####[facility] [address] [place], [address] ECRCL 140.93 ml/min Normal 50-250 [facility] Comment on above: Order Comment: CMP-T IMED FOR A Q6 BMP Performed By: #### L 501.5200, L501.2300, L500.4050 ####[facility] [address] [place], [address] GAP 11 Normal 5-15 [facility] Comment on above: Order Comment: CMP-T IMED FOR A Q6 BMP Performed By: #### L 501.5200, L501.2300, L500.4050 ####[facility] [address] [place], [address] GFR/1.73 sq M.predicted among non-blacks MDRD (S/P/Bld) [Vol rate/Area] 123 mL/min/{1.73_m2} Normal >60 [facility] Comment on above: Order Comment: CMP-T IMED FOR A Q6 BMP Result Comment: mL/m in/1.73m2 CKD-EPI Creatinine Equation (2020) Performed By: #### L 501.5200, L501.2300, L500.4050 ####[facility] [address] [place], [address] Globulin (S) [Mass/Vol] 2.2 g/dL Normal 2.2-4.2 [facility] Comment on above: Order Comment: CMP-T IMED FOR A Q6 BMP Performed By: #### L 501.5200, L501.2300, L500.4050 ####[facility] [address] [place], [address] Glucose [Mass/Vol] 122 mg/dL High 70-99 [facility] Comment on above: Order Comment: CMP-T IMED FOR A Q6 BMP Performed By: #### L 501.5200, L501.2300, L500.4050 ####[facility] [address] [place], [address] Potassium [Moles/Vol] 3.4 mmol/L Normal 3.3-5.1 [facility] Comment on above: Order Comment: CMP-T IMED FOR A Q6 BMP Performed By: #### L 501.5200, L501.2300, L500.4050 ####[facility] [address] [place], [address] Sodium [Moles/Vol] 138 mmol/L Normal 133-145 [facility] Comment on above: Order Comment: CMP-T IMED FOR A Q6 BMP Performed By: #### L 501.5200, L501.2300, L500.4050 ####[facility] [address] [place], [address] T PROT 5.9 g/dL Normal 5.9-8.4 [facility] Comment on above: Order Comment: CMP-T IMED FOR A Q6 BMP Performed By: #### L 501.5200, L501.2300, L500.4050 ####[facility] [address] [place], [address] Urea nitrogen [Mass/Vol] 7 mg/dL Normal 4-19 [facility] Comment on above: Order Comment: CMP-T IMED FOR A Q6 BMP Performed By: #### L 501.5200, L501.2300, L500.4050 ####[facility] [address] [place], [address] Discharge Instructionon 10-26 Discharge Instruction Normal [facility] Magnesiumon 11-06-2024 Magnesium [Mass/Vol] 2.2 mg/dL Normal 1.5-2.2 [facility] Comment on above: Order Comment: CMP-T IMED FOR A Q6 BMP Performed By: #### L 501.5200, L501.2300, L500.4050 ####[facility] [address] [place], [address] Phosphoruson 11-06-2024 Phosphate [Mass/Vol] 2.1 mg/dL Low 2.7-4.5 [facility] Comment on above: Order Comment: CMP-T IMED FOR A Q6 BMP Performed By: #### L 501.5200, L501.2300, L500.4050 ####[facility] [address] [place], [address] Urine Drug Screen (VISTA)on 11-06-2024 AMPHETAMINES Negative Normal <1000 ng/mL [facility] Comment on above: Performed By: #### L 505.5000 ####[facility] [address] [place], [address] BARBITIURATES Negative Normal < 200 ng/mL [facility] Comment on above: Performed By: #### L 505.5000 ####[facility] [address] [place], [address] BENZODIAZIPINE Negative Normal < 200 ng/mL [facility] Comment on above: Performed By: #### L 505.5000 ####[facility] [address] [place], [address] BUP Ur Drug Scr Negative Normal < 200 ng/mL [facility] Comment on above: Performed By: #### L 505.5000 ####[facility] [address] [place], [address] COCAINE Negative Normal < 300 ng/mL [facility] Comment on above: Performed By: #### L 505.5000 ####[facility] [address] [place], [address] Fentanyl Negative Normal [facility] Comment on above: Performed By: #### L 505.5000 ####[facility] [address] [place], [address] METHADONE Negative Normal < 300 ng/mL [facility] Comment on above: Performed By: #### L 505.5000 ####[facility] [address] [facility] [address] OPIATES Negative Normal < 300 ng/mL [facility] Comment on above: Performed By: #### L 505.5000 ####[facility] [address] [facility] [address] OXYCODONE Negative Normal < 100 ng/mL [facility] Comment on above: Performed By: #### L 505.5000 ####[facility] [address] [place] [id number] PCP Negative Normal < 25 ng/mL [facility] Comment on above: Performed By: #### L 505.5000 ####[facility] [address] [place] [address] THC Positive Normal < 50 ng/mL [facility] Comment on above: Result Comment: If c onfirmation testing is needed, a separate order will berequired to send out testing to the reference laboratory. Performed By: #### L 505.5000 ####[facility] [address] [place] [id number] Basic Metabolic Profile (BMP )on 11-05-2024 BUN/CRE 18.5 RATIO Normal 10-20 [facility] Comment on above: Performed By: #### L 500.2500 ####[facility] [address] [place], [address] Calcium [Mass/Vol] 7.5 mg/dL Low 7.6-11.0 [facility] Comment on above: Performed By: #### L 500.2500 ####[facility] [address] [place], [address] Chloride [Moles/Vol] 99 mmol/L Normal 98-108 [facility] Comment on above: Performed By: #### L 500.2500 ####[facility] [address] [place], [address] CO2 [Moles/Vol] 15.7 mmol/L Low 21.0-32.0 [facility] Comment on above: Performed By: #### L 500.2500 ####[facility] [address] [place], [address] Creatinine [Mass/Vol] 0.74 mg/dL Normal 0.70-1.20 [facility] Comment on above: Performed By: #### L 500.2500 ####[facility] [address] [place], [address] ECRCL 116.17 ml/min Normal 50-250 [facility] Comment on above: Performed By: #### L 500.2500 ####[facility] [address] [place], [address] GAP 18 High 5-15 [facility] Comment on above: Performed By: #### L 500.2500 ####[facility] [address] [place], [address] GFR/1.73 sq M.predicted among non-blacks MDRD (S/P/Bld) [Vol rate/Area] 111 mL/min/{1.73_m2} Normal >60 [facility] Comment on above: Result Comment: mL/m in/1.73m2 CKD-EPI Creatinine Equation (2020) Performed By: #### L 500.2500 ####[facility] [address] [place], [address] Glucose [Mass/Vol] 176 mg/dL High 70-99 [facility] Comment on above: Performed By: #### L 500.2500 ####[facility] [address] [place], [address] Potassium [Moles/Vol] 4.8 mmol/L Normal 3.3-5.1 [facility] Comment on above: Performed By: #### L 500.2500 ####[facility] [address] [place], [address] Sodium [Moles/Vol] 133 mmol/L Normal 133-145 [facility] Comment on above: Performed By: #### L 500.2500 ####[facility] [address] [place], [address] Urea nitrogen [Mass/Vol] 14 mg/dL Normal 4-19 [facility] Comment on above: Performed By: #### L 500.2500 ####[facility] [address] [place], [address] BUN Normal 4-19 [facility] Comment on above: Result Comment: DUPL ICATE Performed By: #### L 500.2500 ####[facility] [address] [place], [address] BUN/CRE Normal 10-20 [facility] Comment on above: Result Comment: DUPL ICATE Performed By: #### L 500.2500 ####[facility] [address] [place], [address] Calcium Normal 7.6-11.0 [facility] Comment on above: Result Comment: DUPL ICATE Performed By: #### L 500.2500 ####[facility] [address] [place], [address] CL Normal 98-108 [facility] Comment on above: Result Comment: DUPL ICATE Performed By: #### L 500.2500 ####[facility] [address] [place], [address] CO2 Normal 21.0-32.0 [facility] Comment on above: Result Comment: DUPL ICATE Performed By: #### L 500.2500 ####[facility] [address] [place], [address] CREAT,SERUM Normal 0.70-1.20 [facility] Comment on above: Result Comment: DUPL ICATE Performed By: #### L 500.2500 ####[facility] [address] [place], [address] eGFR Normal >60 [facility] Comment on above: Result Comment: DUPL ICATE Performed By: #### L 500.2500 ####[facility] [address] [place], [address] GAP Normal 5-15 [facility] Comment on above: Result Comment: DUPL ICATE Performed By: #### L 500.2500 ####[facility] [address] [place], [address] GLU Normal 70-99 [facility] Comment on above: Result Comment: DUPL ICATE Performed By: #### L 500.2500 ####[facility] [address] [place], [address] Potassium Normal 3.3-5.1 [facility] Comment on above: Result Comment: DUPL ICATE Performed By: #### L 500.2500 ####[facility] [address] [place], [address] Basic Metabolic Profile (BMP) Normal 133-145 [facility] Comment on above: Result Comment: DUPL ICATE Performed By: #### L 500.2500 ####[facility] [address] [place], [address] Bedside Glucoseon 11-05-2024 FINGERSTICK GLU 109 mg/dL High 74-106 [facility] Comment on above: Result Comment: EDGAR HUNG OF PATIENT CARE PER NURSING PROTOCOL Performed By: #### L 501.080 ####[facility] [address] [place], [address] FINGERSTICK GLU 222 mg/dL High 74-106 [facility] Comment on above: Result Comment: EDGAR HUNG OF PATIENT CARE PER NURSING PROTOCOL Performed By: #### L 501.080 ####[facility] [address] [place], [address] [facility] Positive Normal [facility] Comment on above: Performed By: #### L 9000.0800 ####[facility] [address] [place], [address] Base excess Calc (Bld) [Moles/Vol] -5 mmol/L Low -2 to +2 [facility] Comment on above: Performed By: #### L 9000.0800 ####[facility] [address] [place], [address] Blood Gas Type ART Normal [facility] Comment on above: Performed By: #### L 9000.0800 ####[facility] [address] [place], [address] CO2 [Moles/Vol] 21 mmol/L Normal [facility] Comment on above: Performed By: #### L 9000.0800 ####[facility] [address] [place], [address] HCO3 (Bld) [Moles/Vol] 19.9 mmol/L Low 22-26 [facility] Comment on above: Performed By: #### L 9000.0800 ####[facility] [address] [place], [address] Mode Not entered Normal [facility] Comment on above: Performed By: #### L 9000.0800 ####[facility] [address] [place], [address] O2 Delivery Dev Room Air Normal [facility] Comment on above: Performed By: #### L 9000.0800 ####[facility] [address] [place], [address] pCO2 31.1 mmHg Low 35-45 [facility] Comment on above: Performed By: #### L 9000.0800 ####[facility] [address] [place], [address] pH (Bld) 7.42 [pH] Normal 7.35-7.45 [facility] Comment on above: Performed By: #### L 9000.0800 ####[facility] [address] [place], [address] PO2 89 mmHG Normal 75-100 [facility] Comment on above: Performed By: #### L 9000.0800 ####[facility] [address] [place], [address] SITE L Radial Normal [facility] Comment on above: Performed By: #### L 9000.0800 ####[facility] [address] [place], [address] SO2 97 Normal 95-99 [facility] Comment on above: Performed By: #### L 9000.0800 ####[facility] [address] [place], [address] CBC W/Diff, Automatedon 10-26 Absolute Lymph 0.93 X10 3/uL Normal 0.83-4.51 [facility] Comment on above: Performed By: #### L 503.6005, L500.4050, L100.0100, L501.2450, L700.6800 ####[facility] [address] [place], [address] Absolute Neut 13.4 X10 3/uL High 2.0-7.7 [facility] Comment on above: Performed By: #### L 503.6005, L500.4050, L100.0100, L501.2450, L700.6800 ####[facility] [address] [place], [address] Basophils/100 WBC (Bld) 0.2 % Normal 0-1 [facility] Comment on above: Performed By: #### L 503.6005, L500.4050, L100.0100, L501.2450, L700.6800 ####[facility] [address] [place], [address] Eosinophils/100 WBC (Bld) 0.0 % Normal 0-5 [facility] Comment on above: Performed By: #### L 503.6005, L500.4050, L100.0100, L501.2450, L700.6800 ####[facility] [address] [place], [address] Erythrocyte distribution width (RBC) [Ratio] 13.6 % Normal 11.6-14.6 [facility] Comment on above: Performed By: #### L 503.6005, L500.4050, L100.0100, L501.2450, L700.6800 ####[facility] [address] [place], [address] Hematocrit (Bld) [Volume fraction] 38.0 % Normal 37-47 [facility] Comment on above: Performed By: #### L 503.6005, L500.4050, L100.0100, L501.2450, L700.6800 ####[facility] [address] [place], [address] Hemoglobin (Bld) [Mass/Vol] 12.7 g/dL Normal 12.0-15.0 [facility] Comment on above: Performed By: #### L 503.6005, L500.4050, L100.0100, L501.2450, L700.6800 ####[facility] [address] [place], [address] IG% 1.000 High 0.0-0.9 [facility] Comment on above: Result Comment: IG% - Immature Granulocytes (promyelocytes, myelocytes andmetamyelocytes) > 1% indicates that a LEFT SHIFT is Present. Performed By: #### L 503.6005, L500.4050, L100.0100, L501.2450, L700.6800 ####[facility] [address] [place], [address] Lymphocytes/100 WBC (Bld) 6.1 % Low 19-41 [facility] Comment on above: Performed By: #### L 503.6005, L500.4050, L100.0100, L501.2450, L700.6800 ####[facility] [address] [place], [address] MCH (RBC) [Entitic mass] 29.9 pg Normal 27.0-32.0 [facility] Comment on above: Performed By: #### L 503.6005, L500.4050, L100.0100, L501.2450, L700.6800 ####[facility] [address] [place], [address] MCHC (RBC) [Mass/Vol] 33.4 g/dL Normal 32-36 [facility] Comment on above: Performed By: #### L 503.6005, L500.4050, L100.0100, L501.2450, L700.6800 ####[facility] [address] [place], [address] MCV (RBC) [Entitic vol] 89.4 fL Normal 81-99 [facility] Comment on above: Performed By: #### L 503.6005, L500.4050, L100.0100, L501.2450, L700.6800 ####[facility] [address] [place], [address] Monocytes/100 WBC (Bld) 4.7 % Normal 0-10 [facility] Comment on above: Performed By: #### L 503.6005, L500.4050, L100.0100, L501.2450, L700.6800 ####[facility] [address] [place], [address] Neutrophils/100 WBC (Bld) 88.0 % High 47-70 [facility] Comment on above: Performed By: #### L 503.6005, L500.4050, L100.0100, L501.2450, L700.6800 ####[facility] [address] [place], [address] Nucleated RBC (Bld) [#/Vol] 0 10*3/uL Normal 0-5 [facility] Comment on above: Performed By: #### L 503.6005, L500.4050, L100.0100, L501.2450, L700.6800 ####[facility] [address] [place], [address] Platelet mean volume (Bld) [Entitic vol] 11.7 fL Normal 6.2-12.0 [facility] Comment on above: Performed By: #### L 503.6005, L500.4050, L100.0100, L501.2450, L700.6800 ####[facility] [address] [place], [address] Platelets (Bld) [#/Vol] 201 10*3/uL Normal 150-450 [facility] Comment on above: Performed By: #### L 503.6005, L500.4050, L100.0100, L501.2450, L700.6800 ####[facility] [address] [place], [place], [phone] RBC (Bld) [#/Vol] 4.25 10*6/uL Normal 4.2-5.4 [facility] Comment on above: Performed By: #### L 503.6005, L500.4050, L100.0100, L501.2450, L700.6800 ####[facility] [address] [place], [place], [phone] RDW SD 44.6 fl High 35.1-43.9 [facility] Comment on above: Performed By: #### L 503.6005, L500.4050, L100.0100, L501.2450, L700.6800 ####[facility] [address] [place], [place], [phone] WBC (Bld) [#/Vol] 15.2 10*3/uL High 4.4-11.0 [facility] Comment on above: Performed By: #### L 503.6005, L500.4050, L100.0100, L501.2450, L700.6800 ####[facility] [address] [place], [place], [id number] [facility]it[facility] KATHLEEN VILLA ([id number]) 1995 F T Date Time Provider Department 11/05/24 LETICIA HYLTON [facility] During your visit today, we [...] Units subcutaneously every 24 hours. 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 Normal [facility] Metabolic Prof ohon 11-05-2024 Albumin [Mass/Vol] 4.1 g/dL Normal 3.5-5.0 [facility] Comment on above: Performed By: #### L 503.6005, L500.4050, L100.0100, L501.2450, L700.6800 ####[facility] [address] [place], [address] Albumin/Globulin [Mass ratio] 1.5 {ratio} Normal 0.9-2.4 [facility] Comment on above: Performed By: #### L 503.6005, L500.4050, L100.0100, L501.2450, L700.6800 ####[facility] [address], [address] ALK PHOS 89 U/L Normal 35-104 [facility] Comment on above: Performed By: #### L 503.6005, L500.4050, L100.0100, L501.2450, L700.6800 ####[facility] [address] [place], [address] ALT [Catalytic activity/Vol] 17 U/L Normal <=34 [facility] Comment on above: Performed By: #### L 503.6005, L500.4050, L100.0100, L501.2450, L700.6800 ####[facility] [address] [place], [address] AST [Catalytic activity/Vol] 21 U/L Normal <=31 [facility] Comment on above: Performed By: #### L 503.6005, L500.4050, L100.0100, L501.2450, L700.6800 ####[facility] [address] [place], [address] Bilirubin [Mass/Vol] 1.15 mg/dL Normal 0.00-1.30 [facility] Comment on above: Performed By: #### L 503.6005, L500.4050, L100.0100, L501.2450, L700.6800 ####[facility] [address] [place], [address] BUN/CRE 18.4 RATIO Normal 10-20 [facility] Comment on above: Performed By: #### L 503.6005, L500.4050, L100.0100, L501.2450, L700.6800 ####[facility] [address] [place], [address] Calcium [Mass/Vol] 8.2 mg/dL Normal 7.6-11.0 [facility] Comment on above: Performed By: #### L 503.6005, L500.4050, L100.0100, L501.2450, L700.6800 ####[facility] [address] [place], [address] Chloride [Moles/Vol] 94 mmol/L Low 98-108 [facility] Comment on above: Performed By: #### L 503.6005, L500.4050, L100.0100, L501.2450, L700.6800 ####[facility] [address] [place], [address] CO2 [Moles/Vol] 12.8 mmol/L Low 21.0-32.0 [facility] Comment on above: Performed By: #### L 503.6005, L500.4050, L100.0100, L501.2450, L700.6800 ####[facility] [address] [place], [address] Creatinine [Mass/Vol] 0.86 mg/dL Normal 0.70-1.20 [facility] Comment on above: Performed By: #### L 503.6005, L500.4050, L100.0100, L501.2450, L700.6800 ####[facility] [address] [place], [address] ECRCL 99.96 ml/min Normal 50-250 [facility] Comment on above: Performed By: #### L 503.6005, L500.4050, L100.0100, L501.2450, L700.6800 ####[facility] [address] [place], [address] GAP 27 High 5-15 [facility] Comment on above: Performed By: #### L 503.6005, L500.4050, L100.0100, L501.2450, L700.6800 ####[facility] [address] [place], [address] GFR/1.73 sq M.predicted among non-blacks MDRD (S/P/Bld) [Vol rate/Area] 93 mL/min/{1.73_m2} Normal >60 [facility] Comment on above: Result Comment: mL/m in/1.73m2 CKD-EPI Creatinine Equation (2020) Performed By: #### L 503.6005, L500.4050, L100.0100, L501.2450, L700.6800 ####[facility] [address] [place], [address] Globulin (S) [Mass/Vol] 2.8 g/dL Normal 2.2-4.2 [facility] Comment on above: Performed By: #### L 503.6005, L500.4050, L100.0100, L501.2450, L700.6800 ####[facility] [address] [place], [address] Glucose [Mass/Vol] 251 mg/dL High 70-99 [facility] Comment on above: Performed By: #### L 503.6005, L500.4050, L100.0100, L501.2450, L700.6800 ####[facility] [address] [place], [address] Potassium [Moles/Vol] 3.0 mmol/L Low 3.3-5.1 [facility] Comment on above: Performed By: #### L 503.6005, L500.4050, L100.0100, L501.2450, L700.6800 ####[facility] [address] [place], [address] Sodium [Moles/Vol] 134 mmol/L Normal 133-145 [facility] Comment on above: Performed By: #### L 503.6005, L500.4050, L100.0100, L501.2450, L700.6800 ####[facility] [address] [place], [address] T PROT 6.9 g/dL Normal 5.9-8.4 [facility] Comment on above: Performed By: #### L 503.6005, L500.4050, L100.0100, L501.2450, L700.6800 ####[facility] [address] [place], [address] Urea nitrogen [Mass/Vol] 16 mg/dL Normal 4-19 [facility] Comment on above: Performed By: #### L 503.6005, L500.4050, L100.0100, L501.2450, L700.6800 ####[facility] [address] [place], [address] Emergency Department Summary on 11-05-2024 Emergency Department Summary Normal [facility] Gallbladderon 11-05-2024 Gallbladder Normal [facility] H AND P Exam - Hospitaliston 11-05-2024 H&P Exam - Hospitalist Normal [facility] L501.6901on 11-05-2024 BETA-HYDROXYBUT 7.1 mmol/L Normal 0.0-0.3 [facility] Comment on above: Performed By: #### L 501.6901 ####[facility] [address] [place], [address] Lactic Acidon 11-05-2024 Lactate [Moles/Vol] mmol/L Normal 0.0-2.0 [facility] Comment on above: Order Comment: Y Performed By: #### L 503.6005, L500.4050, L100.0100, L501.2450, L700.6800 ####[facility] [address] [place], [address] Lipaseon 11-05-2024 Lipase [Catalytic activity/Vol] 13 U/L Normal 13-75 [facility] Comment on above: Result Comment: Sulma schmitz note:LIPASE revised reference range effective 22.New Lipase methodology. Expected to produce lower valuesthan the previous assay method.NEW Reference Range: 13 - 75 U/L Performed By: #### L 503.6005, L500.4050, L100.0100, L501.2450, L700.6800 ####[facility] [address] [place], [address] ,Serum,hCG Quali.on 11-05-2024 HCG, SERUM QUAL Negative Normal [facility] Comment on above: Performed By: #### L 503.6005, L500.4050, L100.0100, L501.2450, L700.6800 ####[facility] [address] [place], [address] Urinalysis, Completeon 11-05 BACTERIA 1+ /hpf Normal None Seen [facility] Comment on above: Order Comment: CLEAN CATCH Performed By: #### L 400.0001 ####[facility] [address] [place], [address] EPI,SQUAMOUS 0-5 SEEN Normal 5-10 [facility] Comment on above: Order Comment: CLEAN CATCH Performed By: #### L 400.0001 ####[facility] [address] [place], [address] WBC 0-5 SEEN Normal 0-5 [facility] Comment on above: Order Comment: CLEAN CATCH Performed By: #### L 400.0001 ####[facility] [address] [place], [address] RBC 0 SEEN Normal 0-5 [facility] Comment on above: Order Comment: CLEAN CATCH Performed By: #### L 400.0001 ####[facility] [address] [place], [address] Mucus Ql (Urine sed) 0 SEEN Normal [facility] Comment on above: Order Comment: CLEAN CATCH Performed By: #### L 400.0001 ####[facility] [address] [place], [address] Venous Blood Gason 5 Blood Gas Type ISABELLE Normal [facility] Comment on above: Performed By: #### L 9000.0810 ####[facility] [address] [place], [address] CO2 [Moles/Vol] 14 mmol/L Low 23-33 [facility] Comment on above: Performed By: #### L 9000.0810 ####[facility] [address] [place], [address] HCO3 (Bld) [Moles/Vol] 14 mmol/L Low 22-26 [facility] Comment on above: Performed By: #### L 9000.0810 ####[facility] [address] [place], [address] O2 Delivery Dev Not entered Normal [facility] Comment on above: Performed By: #### L 9000.0810 ####[facility] [address] [place], [address] SITE Not entered Normal [facility] Comment on above: Performed By: #### L 9000.0810 ####[facility] [address] [place], [address] VBG BE -11 mmol/L Low -1.0-3.5 [facility] Comment on above: Performed By: #### L 9000.0810 ####[facility] [address] [place], [address] VBG pCO2 20.7 mmHg Low 41-51 [facility] Comment on above: Performed By: #### L 9000.0810 ####[facility] [address] [place], [address] VBG pH 7.43 High 7.32-7.42 [facility] Comment on above: Performed By: #### L 9000.0810 ####[facility] [address] [place], [address] VBG PO2 68 mmHg High 25-40 [facility] Comment on above: Performed By: #### L 9000.0810 ####[facility] [address] [place], [address] VBG SO2 95 High 50-70 [facility] Comment on above: Performed By: #### L 9000.0810 ####[facility] [address] [place], [address] L501.6901on 11-04-2024 BETA-HYDROXYBUT 1.5 mmol/L Normal 0.0-0.3 [facility] Comment on above: Performed By: #### L 501.6901 ####[facility] [address] [place], [address] Venous Blood Gason 5 CO2 [Moles/Vol] 20 mmol/L Low 23-33 [facility] Comment on above: Performed By: #### L 9000.0810 ####[facility] [address] [place], [address] HCO3 (Bld) [Moles/Vol] 19 mmol/L Low 22-26 [facility] Comment on above: Performed By: #### L 9000.0810 ####[facility] [address] [place], [address] VBG SO2 94 High 50-70 [facility] Comment on above: Performed By: #### L 9000.0810 ####[facility] [address] [place], [address] Blood Gas Type ISABELLE Normal [facility] Comment on above: Performed By: #### L 9000.0810 ####[facility] [address] [place], [address] VBG pCO2 30.3 mmHg Low 41-51 [facility] Comment on above: Performed By: #### L 9000.0810 ####[facility] [address] [place], [address] VBG pH 7.40 Normal 7.32-7.42 [facility] Comment on above: Performed By: #### L 9000.0810 ####[facility] [address] [place], [address] VBG PO2 71 mmHg High 25-40 [facility] Comment on above: Performed By: #### L 9000.0810 ####[facility] [address] [place], [address] Abdomen/Pelvis W IV Cont ONL Yon 11-03-2024 Abdomen/Pelvis W IV Cont ONLY Normal [facility] CBC W/Diff, Automatedon Absolute Lymph 1.92 X10 3/uL Normal 0.83-4.51 [facility] Comment on above: Performed By: #### L 501.2450, L100.0100, L500.4050 ####[facility] [address] [place], [address] Absolute Neut 8.4 X10 3/uL High 2.0-7.7 [facility] Comment on above: Performed By: #### L 501.2450, L100.0100, L500.4050 ####[facility] [address] [place], [address] Basophils/100 WBC (Bld) 0.5 % Normal 0-1 [facility] Comment on above: Performed By: #### L 501.2450, L100.0100, L500.4050 ####[facility] [address] [place], [address] Eosinophils/100 WBC (Bld) 0.3 % Normal 0-5 [facility] Comment on above: Performed By: #### L 501.2450, L100.0100, L500.4050 ####[facility] [address] [place], [address] Erythrocyte distribution width (RBC) [Ratio] 13.2 % Normal 11.6-14.6 [facility] Comment on above: Performed By: #### L 501.2450, L100.0100, L500.4050 ####[facility] [address] [place], [address] Hematocrit (Bld) [Volume fraction] 42.1 % Normal 37-47 [facility] Comment on above: Performed By: #### L 501.2450, L100.0100, L500.4050 ####[facility] [address] [place], [address] Hemoglobin (Bld) [Mass/Vol] 14.2 g/dL Normal 12.0-15.0 [facility] Comment on above: Performed By: #### L 501.2450, L100.0100, L500.4050 ####[facility] [address] [place], [address] IG% 0.800 Normal 0.0-0.9 [facility] Comment on above: Result Comment: IG% - Immature Granulocytes (promyelocytes, myelocytes andmetamyelocytes) > 1% indicates that a LEFT SHIFT is Present. Performed By: #### L 501.2450, L100.0100, L500.4050 ####[facility] [address] [place], [address] Lymphocytes/100 WBC (Bld) 17.5 % Low 19-41 [facility] Comment on above: Performed By: #### L 501.2450, L100.0100, L500.4050 ####[facility] [address] [place], [address] MCH (RBC) [Entitic mass] 29.3 pg Normal 27.0-32.0 [facility] Comment on above: Performed By: #### L 501.2450, L100.0100, L500.4050 ####[facility] [address] [place], [address] MCHC (RBC) [Mass/Vol] 33.7 g/dL Normal 32-36 [facility] Comment on above: Performed By: #### L 501.2450, L100.0100, L500.4050 ####[facility] [address] [place], [address] MCV (RBC) [Entitic vol] 87.0 fL Normal 81-99 [facility] Comment on above: Performed By: #### L 501.2450, L100.0100, L500.4050 ####[facility] [address] [place], [address] Monocytes/100 WBC (Bld) 4.6 % Normal 0-10 [facility] Comment on above: Performed By: #### L 501.2450, L100.0100, L500.4050 ####[facility] [address] [place], [address] Neutrophils/100 WBC (Bld) 76.3 % High 47-70 [facility] Comment on above: Performed By: #### L 501.2450, L100.0100, L500.4050 ####[facility] [address] [place], [address] Nucleated RBC (Bld) [#/Vol] 0 10*3/uL Normal 0-5 [facility] Comment on above: Performed By: #### L 501.2450, L100.0100, L500.4050 ####[facility] [address] [place], [address] Platelet mean volume (Bld) [Entitic vol] 12.4 fL High 6.2-12.0 [facility] Comment on above: Performed By: #### L 501.2450, L100.0100, L500.4050 ####[facility] [address] [place], [address] Platelets (Bld) [#/Vol] 263 10*3/uL Normal 150-450 [facility] Comment on above: Performed By: #### L 501.2450, L100.0100, L500.4050 ####[facility] [address] [place], [address] RBC (Bld) [#/Vol] 4.84 10*6/uL Normal 4.2-5.4 [facility] Comment on above: Performed By: #### L 501.2450, L100.0100, L500.4050 ####[facility] [address] [place], [address] RDW SD 41.6 fl Normal 35.1-43.9 [facility] Comment on above: Performed By: #### L 501.2450, L100.0100, L500.4050 ####[facility] [address] [place], [address] WBC (Bld) [#/Vol] 11.0 10*3/uL Normal 4.4-11.0 [facility] Comment on above: Performed By: #### L 501.2450, L100.0100, L500.4050 ####[facility] [address] [place], [address] Comprehensive Metabolic Prof ohon 11-03-2024 Albumin [Mass/Vol] 4.7 g/dL Normal 3.5-5.0 [facility] Comment on above: Performed By: #### L 501.2450, L100.0100, L500.4050 ####[facility] [address] [place], [address] Albumin/Globulin [Mass ratio] 1.4 {ratio} Normal 0.9-2.4 [facility] Comment on above: Performed By: #### L 501.2450, L100.0100, L500.4050 ####[facility] [address] [place], [address] ALK PHOS 101 U/L Normal 35-104 [facility] Comment on above: Performed By: #### L 501.2450, L100.0100, L500.4050 ####[facility] [address] [place], [address] ALT [Catalytic activity/Vol] 22 U/L Normal <=34 [facility] Comment on above: Performed By: #### L 501.2450, L100.0100, L500.4050 ####[facility] [address] [place], [address] AST [Catalytic activity/Vol] 20 U/L Normal <=31 [facility] Comment on above: Result Comment: Hemo lysis present, Results??could be affected.?? Performed By: #### L 501.2450, L100.0100, L500.4050 ####[facility] [address] [place], [address] Bilirubin [Mass/Vol] 0.98 mg/dL Normal 0.00-1.30 [facility] Comment on above: Performed By: #### L 501.2450, L100.0100, L500.4050 ####[facility] [address] [place], [address] BUN/CRE 17.6 RATIO Normal 10-20 [facility] Comment on above: Performed By: #### L 501.2450, L100.0100, L500.4050 ####[facility] [address] [place], [address] Calcium [Mass/Vol] 9.9 mg/dL Normal 7.6-11.0 [facility] Comment on above: Performed By: #### L 501.2450, L100.0100, L500.4050 ####[facility] [address] [place], [address] Chloride [Moles/Vol] 97 mmol/L Low 98-108 [facility] Comment on above: Performed By: #### L 501.2450, L100.0100, L500.4050 ####[facility] [address] [place], [address] CO2 [Moles/Vol] 18.2 mmol/L Low 21.0-32.0 [facility] Comment on above: Performed By: #### L 501.2450, L100.0100, L500.4050 ####[facility] [address] [place], [address] Creatinine [Mass/Vol] 0.84 mg/dL Normal 0.70-1.20 [facility] Comment on above: Performed By: #### L 501.2450, L100.0100, L500.4050 ####[facility] [address] [place], [address] ECRCL 102.34 ml/min Normal 50-250 [facility] Comment on above: Performed By: #### L 501.2450, L100.0100, L500.4050 ####[facility] [address] [place], [address] GAP 18 High 5-15 [facility] Comment on above: Performed By: #### L 501.2450, L100.0100, L500.4050 ####[facility] [address] [place], [address] GFR/1.73 sq M.predicted among non-blacks MDRD (S/P/Bld) [Vol rate/Area] 96 mL/min/{1.73_m2} Normal >60 [facility] Comment on above: Result Comment: mL/m in/1.73m2 CKD-EPI Creatinine Equation (2020) Performed By: #### L 501.2450, L100.0100, L500.4050 ####[facility] [address] [place], [address] Globulin (S) [Mass/Vol] 3.3 g/dL Normal 2.2-4.2 [facility] Comment on above: Performed By: #### L 501.2450, L100.0100, L500.4050 ####[facility] [address] [place], [address] Glucose [Mass/Vol] 375 mg/dL High 70-99 [facility] Comment on above: Performed By: #### L 501.2450, L100.0100, L500.4050 ####[facility] [address] [place], [address] Potassium [Moles/Vol] 4.4 mmol/L Normal 3.3-5.1 [facility] Comment on above: Result Comment: Hemo lysis present, Results??could be affected.?? Performed By: #### L 501.2450, L100.0100, L500.4050 ####[facility] [address] [place], [address] Sodium [Moles/Vol] 133 mmol/L Normal 133-145 [facility] Comment on above: Performed By: #### L 501.2450, L100.0100, L500.4050 ####[facility] [address] [place], [address] T PROT 7.9 g/dL Normal 5.9-8.4 [facility] Comment on above: Performed By: #### L 501.2450, L100.0100, L500.4050 ####[facility] [address] [place], [address] Urea nitrogen [Mass/Vol] 15 mg/dL Normal 4-19 [facility] Comment on above: Performed By: #### L 501.2450, L100.0100, L500.4050 ####[facility] [address] [place], [address] Emergency Department Summary on 11-03-2024 Emergency Department Summary Normal [facility] Lipaseon 11-03-2024 Lipase [Catalytic activity/Vol] 14 U/L Normal 13-75 [facility] Comment on above: Result Comment: Sulma schmitz note:LIPASE revised reference range effective 22.New Lipase methodology. Expected to produce lower valuesthan the previous assay method.NEW Reference Range: 13 - 75 U/L Performed By: #### L 501.2450, L100.0100, L500.4050 ####[facility] [address] [place], [address] Urinalysis, Completeon 11-03 BACTERIA RARE Normal None Seen [facility] Comment on above: Order Comment: CLEAN CATCH Performed By: #### L 400.0001 ####[facility] [address] [place], [address] EPI,SQUAMOUS 0-5 SEEN Normal 5-10 [facility] Comment on above: Order Comment: CLEAN CATCH Performed By: #### L 400.0001 ####[facility] [address] [place], [address] RBC 0 SEEN Normal 0-5 [facility] Comment on above: Order Comment: CLEAN CATCH Performed By: #### L 400.0001 ####[facility] [address] [place], [address] WBC 0-5 SEEN Normal 0-5 [facility] Comment on above: Order Comment: CLEAN CATCH Performed By: #### L 400.0001 ####[facility] [address] [place], [address] BILIRUBIN URINE Negative Normal Negative [facility] Comment on above: Order Comment: CLEAN CATCH Performed By: #### L 400.0001 ####[facility] [address] [place], [address] Clarity (U) Turbid Normal Clear [facility] Comment on above: Order Comment: CLEAN CATCH Performed By: #### L 400.0001 ####[facility] [address] [place], [address] Color (U) Straw Normal Yellow [facility] Comment on above: Order Comment: CLEAN CATCH Performed By: #### L 400.0001 ####[facility] [address] [place], [address] GLUCOSE, UR 1000 mg/dl Abnormal Normal [facility] Comment on above: Order Comment: CLEAN CATCH Performed By: #### L 400.0001 ####[facility] [address] [place], [address] KETONE UR 50 mg/dl Abnormal Negative [facility] Comment on above: Order Comment: CLEAN CATCH Performed By: #### L 400.0001 ####[facility] [address] [place], [address] LEUK ESTERASE Negative Normal Negative [facility] Comment on above: Order Comment: CLEAN CATCH Performed By: #### L 400.0001 ####[facility] [address] [place], [address] Nitrite Ql (U) Negative Normal Negative [facility] Comment on above: Order Comment: CLEAN CATCH Performed By: #### L 400.0001 ####[facility] [address] [place], [address] OCCULT BLOOD-UR Negative Normal Negative [facility] Comment on above: Order Comment: CLEAN CATCH Performed By: #### L 400.0001 ####[facility] [address] [place], [address] pH UR 6.0 Normal 5.0 - 8.0 [facility] Comment on above: Order Comment: CLEAN CATCH Performed By: #### L 400.0001 ####[facility] [address] [place], [address] PROT DIPSTX Negative Normal Negative [facility] Comment on above: Order Comment: CLEAN CATCH Performed By: #### L 400.0001 ####[facility] [address] [place], [address] SP.GR. DIPSTX 1.015 Normal 1.002-1.030 [facility] Comment on above: Order Comment: CLEAN CATCH Performed By: #### L 400.0001 ####[facility] [address] [place], [address] UROBILI Normal Normal Normal [facility] Comment on above: Order Comment: CLEAN CATCH Performed By: #### L 400.0001 ####[facility] [address] [place], [address] Mucus Ql (Urine sed) 0 SEEN Normal [facility] Comment on above: Order Comment: CLEAN CATCH Performed By: #### L 400.0001 ####[facility] [address] [place], [address] Basic Metabolic Profile (BMP )on 10-27-2024 BUN Normal 7-18 [facility] Comment on above: Result Comment: Canc elled via OM: Order cancelled - Patient discharged Performed By: #### L 100.0100, L500.2500 ####[facility] [address] [place], [address] BUN/CRE Normal 10-20 [facility] Comment on above: Result Comment: Canc elled via OM: Order cancelled - Patient discharged Performed By: #### L 100.0100, L500.2500 ####[facility] [address] [place], [address] CA,Total Normal 8.5-10.1 [facility] Comment on above: Result Comment: Canc elled via OM: Order cancelled - Patient discharged Performed By: #### L 100.0100, L500.2500 ####[facility] [address] [place], [address] CL Normal 98-107 [facility] Comment on above: Result Comment: Canc elled via OM: Order cancelled - Patient discharged Performed By: #### L 100.0100, L500.2500 ####[facility] [address] [place], [address] CO2 Normal 21.0-32.0 [facility] Comment on above: Result Comment: Canc elled via OM: Order cancelled - Patient discharged Performed By: #### L 100.0100, L500.2500 ####[facility] [address] [place], [address] CREAT,SERUM Normal 0.55-1.02 [facility] Comment on above: Result Comment: Canc elled via OM: Order cancelled - Patient discharged Performed By: #### L 100.0100, L500.2500 ####[facility] [address] [place], [address] EST GFR Normal >60 [facility] Comment on above: Result Comment: Canc elled via OM: Order cancelled - Patient discharged Performed By: #### L 100.0100, L500.2500 ####[facility] [address] [place], [address] EST GFR - AA Normal >60 [facility] Comment on above: Result Comment: Canc elled via OM: Order cancelled - Patient discharged Performed By: #### L 100.0100, L500.2500 ####[facility] [address] [place], [address] GAP Normal 5-15 [facility] Comment on above: Result Comment: Canc elled via OM: Order cancelled - Patient discharged Performed By: #### L 100.0100, L500.2500 ####[facility] [address] [place], [address] GLU Normal 74-106 [facility] Comment on above: Result Comment: Canc elled via OM: Order cancelled - Patient discharged Performed By: #### L 100.0100, L500.2500 ####[facility] [address] [place], [address] Potassium Normal 3.5-5.1 [facility] Comment on above: Result Comment: Canc elled via OM: Order cancelled - Patient discharged Performed By: #### L 100.0100, L500.2500 ####[facility] [address] [place], [address] Basic Metabolic Profile (BMP) Normal 136-145 [facility] Comment on above: Result Comment: Canc elled via OM: Order cancelled - Patient discharged Performed By: #### L 100.0100, L500.2500 ####[facility] [address] [place], [address] CBC W/Diff, Automatedon 03-0 -2024 Absolute Neut Normal 2.0-7.7 [facility] Comment on above: Result Comment: Canc elled via OM: Order cancelled - Patient discharged Performed By: #### L 100.0100, L500.2500 ####[facility] [address] [place], [address] HCT Normal 37-47 [facility] Comment on above: Result Comment: Canc elled via OM: Order cancelled - Patient discharged Performed By: #### L 100.0100, L500.2500 ####[facility] [address] [place], [address] HGB Normal 12.0-15.0 [facility] Comment on above: Result Comment: Canc elled via OM: Order cancelled - Patient discharged Performed By: #### L 100.0100, L500.2500 ####[facility] [address] [place], [address] MCH Normal 27.0-32.0 [facility] Comment on above: Result Comment: Canc elled via OM: Order cancelled - Patient discharged Performed By: #### L 100.0100, L500.2500 ####[facility] [address] [place], [address] MCHC Normal 32-36 [facility] Comment on above: Result Comment: Canc elled via OM: Order cancelled - Patient discharged Performed By: #### L 100.0100, L500.2500 ####[facility] [address] [place], [address] MCV Normal 81-99 [facility] Comment on above: Result Comment: Canc elled via OM: Order cancelled - Patient discharged Performed By: #### L 100.0100, L500.2500 ####[facility] [address] [place], [address] NEUT% Normal 47-70 [facility] Comment on above: Result Comment: Canc elled via OM: Order cancelled - Patient discharged Performed By: #### L 100.0100, L500.2500 ####[facility] [address] [place], [address] PLT Normal 150-450 [facility] Comment on above: Result Comment: Canc elled via OM: Order cancelled - Patient discharged Performed By: #### L 100.0100, L500.2500 ####[facility] [address] [place], [address] RBC Normal 4.2-5.4 [facility] Comment on above: Result Comment: Canc elled via OM: Order cancelled - Patient discharged Performed By: #### L 100.0100, L500.2500 ####[facility] [address] [place], [address] RDW CV Normal 11.6-14.6 [facility] Comment on above: Result Comment: Canc elled via OM: Order cancelled - Patient discharged Performed By: #### L 100.0100, L500.2500 ####[facility] [address] [place], [address] RDW SD Normal 35.1-43.9 [facility] Comment on above: Result Comment: Canc elled via OM: Order cancelled - Patient discharged Performed By: #### L 100.0100, L500.2500 ####[facility] [address] [place], [address] WBC Normal 4.4-11.0 [facility] Comment on above: Result Comment: Canc elled via OM: Order cancelled - Patient discharged Performed By: #### L 100.0100, L500.2500 ####[facility] [address] [place], [address] Basic Metabolic Profile (BMP )on 10-26-2024 BUN Normal 7-18 [facility] Comment on above: Result Comment: Canc elled via OM: Order cancelled - Patient discharged Performed By: #### L 100.0100, L500.2500 ####[facility] [address] [place], [address] BUN/CRE Normal 10-20 [facility] Comment on above: Result Comment: Canc elled via OM: Order cancelled - Patient discharged Performed By: #### L 100.0100, L500.2500 ####[facility] [address] [place], [address] CA,Total Normal 8.5-10.1 [facility] Comment on above: Result Comment: Canc elled via OM: Order cancelled - Patient discharged Performed By: #### L 100.0100, L500.2500 ####[facility] [address] [place], [address] CL Normal 98-107 [facility] Comment on above: Result Comment: Canc elled via OM: Order cancelled - Patient discharged Performed By: #### L 100.0100, L500.2500 ####[facility] [address] [place], [address] CO2 Normal 21.0-32.0 [facility] Comment on above: Result Comment: Canc elled via OM: Order cancelled - Patient discharged Performed By: #### L 100.0100, L500.2500 ####[facility] [address] [place], [address] CREAT,SERUM Normal 0.55-1.02 [facility] Comment on above: Result Comment: Canc elled via OM: Order cancelled - Patient discharged Performed By: #### L 100.0100, L500.2500 ####[facility] [address] [place], [address] EST GFR Normal >60 [facility] Comment on above: Result Comment: Canc elled via OM: Order cancelled - Patient discharged Performed By: #### L 100.0100, L500.2500 ####[facility] [address] [place], [address] EST GFR - AA Normal >60 [facility] Comment on above: Result Comment: Canc elled via OM: Order cancelled - Patient discharged Performed By: #### L 100.0100, L500.2500 ####[facility] [address] [place], [address] GAP Normal 5-15 [facility] Comment on above: Result Comment: Canc elled via OM: Order cancelled - Patient discharged Performed By: #### L 100.0100, L500.2500 ####[facility] [address] [place], [address] GLU Normal 74-106 [facility] Comment on above: Result Comment: Canc elled via OM: Order cancelled - Patient discharged Performed By: #### L 100.0100, L500.2500 ####[facility] [address] [place], [address] Potassium Normal 3.5-5.1 [facility] Comment on above: Result Comment: Canc elled via OM: Order cancelled - Patient discharged Performed By: #### L 100.0100, L500.2500 ####[facility] [address] [place], [address] Basic Metabolic Profile (BMP) Normal 136-145 [facility] Comment on above: Result Comment: Canc elled via OM: Order cancelled - Patient discharged Performed By: #### L 100.0100, L500.2500 ####[facility] [address] [place], [address] CBC W/Diff, Automatedon 03-0 Absolute Neut Normal 2.0-7.7 [facility] Comment on above: Result Comment: Canc elled via OM: Order cancelled - Patient discharged Performed By: #### L 100.0100, L500.2500 ####[facility] [address] [place], [address] HCT Normal 37-47 [facility] Comment on above: Result Comment: Canc elled via OM: Order cancelled - Patient discharged Performed By: #### L 100.0100, L500.2500 ####[facility] [address] [place], [address] HGB Normal 12.0-15.0 [facility] Comment on above: Result Comment: Canc elled via OM: Order cancelled - Patient discharged Performed By: #### L 100.0100, L500.2500 ####[facility] [address] [place], [address] MCH Normal 27.0-32.0 [facility] Comment on above: Result Comment: Canc elled via OM: Order cancelled - Patient discharged Performed By: #### L 100.0100, L500.2500 ####[facility] [address] [place], [address] MCHC Normal 32-36 [facility] Comment on above: Result Comment: Canc elled via OM: Order cancelled - Patient discharged Performed By: #### L 100.0100, L500.2500 ####[facility] [address] [place], [address] MCV Normal 81-99 [facility] Comment on above: Result Comment: Canc elled via OM: Order cancelled - Patient discharged Performed By: #### L 100.0100, L500.2500 ####[facility] [address] [place], [address] NEUT% Normal 47-70 [facility] Comment on above: Result Comment: Canc elled via OM: Order cancelled - Patient discharged Performed By: #### L 100.0100, L500.2500 ####[facility] [address] [place], [address] PLT Normal 150-450 [facility] Comment on above: Result Comment: Canc elled via OM: Order cancelled - Patient discharged Performed By: #### L 100.0100, L500.2500 ####[facility] [address] [place], [address] RBC Normal 4.2-5.4 [facility] Comment on above: Result Comment: Canc elled via OM: Order cancelled - Patient discharged Performed By: #### L 100.0100, L500.2500 ####[facility] [address] [place], [address] RDW CV Normal 11.6-14.6 [facility] Comment on above: Result Comment: Canc elled via OM: Order cancelled - Patient discharged Performed By: #### L 100.0100, L500.2500 ####[facility] [address] [place], [address] RDW SD Normal 35.1-43.9 [facility] Comment on above: Result Comment: Canc elled via OM: Order cancelled - Patient discharged Performed By: #### L 100.0100, L500.2500 ####[facility] [address] [place], [address] WBC Normal 4.4-11.0 [facility] Comment on above: Result Comment: Canc elled via OM: Order cancelled - Patient discharged Performed By: #### L 100.0100, L500.2500 ####[facility] [address] [place], [address] Basic Metabolic Profile (BMP )on 10-25-2024 BUN Normal 7-18 [facility] Comment on above: Result Comment: Canc elled via OM: Order cancelled - Patient discharged Performed By: #### L 100.0100, L500.2500 ####[facility] [address] [place], [address] BUN/CRE Normal 10-20 [facility] Comment on above: Result Comment: Canc elled via OM: Order cancelled - Patient discharged Performed By: #### L 100.0100, L500.2500 ####[facility] [address] [place], [address] CA,Total Normal 8.5-10.1 [facility] Comment on above: Result Comment: Canc elled via OM: Order cancelled - Patient discharged Performed By: #### L 100.0100, L500.2500 ####[facility] [address] [place], [address] CL Normal 98-107 [facility] Comment on above: Result Comment: Canc elled via OM: Order cancelled - Patient discharged Performed By: #### L 100.0100, L500.2500 ####[facility] [address] [place], [address] CO2 Normal 21.0-32.0 [facility] Comment on above: Result Comment: Canc elled via OM: Order cancelled - Patient discharged Performed By: #### L 100.0100, L500.2500 ####[facility] [address] [place], [address] CREAT,SERUM Normal 0.55-1.02 [facility] Comment on above: Result Comment: Canc elled via OM: Order cancelled - Patient discharged Performed By: #### L 100.0100, L500.2500 ####[facility] [address] [place], [address] EST GFR Normal >60 [facility] Comment on above: Result Comment: Canc elled via OM: Order cancelled - Patient discharged Performed By: #### L 100.0100, L500.2500 ####[facility] [address] [place], [address] EST GFR - AA Normal >60 [facility] Comment on above: Result Comment: Canc elled via OM: Order cancelled - Patient discharged Performed By: #### L 100.0100, L500.2500 ####[facility] [address] [place], [address] GAP Normal 5-15 [facility] Comment on above: Result Comment: Canc elled via OM: Order cancelled - Patient discharged Performed By: #### L 100.0100, L500.2500 ####[facility] [address] [place], [address] GLU Normal 74-106 [facility] Comment on above: Result Comment: Canc elled via OM: Order cancelled - Patient discharged Performed By: #### L 100.0100, L500.2500 ####[facility] [address] [place], [address] Potassium Normal 3.5-5.1 [facility] Comment on above: Result Comment: Canc elled via OM: Order cancelled - Patient discharged Performed By: #### L 100.0100, L500.2500 ####[facility] [address] [place], [address] Basic Metabolic Profile (BMP) Normal 136-145 [facility] Comment on above: Result Comment: Canc elled via OM: Order cancelled - Patient discharged Performed By: #### L 100.0100, L500.2500 ####[facility] [address] [place], [address] CBC W/Diff, Automatedon - Absolute Neut Normal 2.0-7.7 [facility] Comment on above: Result Comment: Canc elled via OM: Order cancelled - Patient discharged Performed By: #### L 100.0100, L500.2500 ####[facility] [address] [place], [address] HCT Normal 37-47 [facility] Comment on above: Result Comment: Canc elled via OM: Order cancelled - Patient discharged Performed By: #### L 100.0100, L500.2500 ####[facility] [address] [place], [address] HGB Normal 12.0-15.0 [facility] Comment on above: Result Comment: Canc elled via OM: Order cancelled - Patient discharged Performed By: #### L 100.0100, L500.2500 ####[facility] [address] [place], [address] MCH Normal 27.0-32.0 [facility] Comment on above: Result Comment: Canc elled via OM: Order cancelled - Patient discharged Performed By: #### L 100.0100, L500.2500 ####[facility] [address] [place], [address] MCHC Normal 32-36 [facility] Comment on above: Result Comment: Canc elled via OM: Order cancelled - Patient discharged Performed By: #### L 100.0100, L500.2500 ####[facility] [address] [place], [address] MCV Normal 81-99 [facility] Comment on above: Result Comment: Canc elled via OM: Order cancelled - Patient discharged Performed By: #### L 100.0100, L500.2500 ####[facility] [address] [place], [address] NEUT% Normal 47-70 [facility] Comment on above: Result Comment: Canc elled via OM: Order cancelled - Patient discharged Performed By: #### L 100.0100, L500.2500 ####[facility] [address] [place], [address] PLT Normal 150-450 [facility] Comment on above: Result Comment: Canc elled via OM: Order cancelled - Patient discharged Performed By: #### L 100.0100, L500.2500 ####[facility] [address] [place], [address] RBC Normal 4.2-5.4 [facility] Comment on above: Result Comment: Canc elled via OM: Order cancelled - Patient discharged Performed By: #### L 100.0100, L500.2500 ####[facility] [address] [place], [address] RDW CV Normal 11.6-14.6 [facility] Comment on above: Result Comment: Canc elled via OM: Order cancelled - Patient discharged Performed By: #### L 100.0100, L500.2500 ####[facility] [address] [place], [address] RDW SD Normal 35.1-43.9 [facility] Comment on above: Result Comment: Canc elled via OM: Order cancelled - Patient discharged Performed By: #### L 100.0100, L500.2500 ####[facility] [address] [place], [address] WBC Normal 4.4-11.0 [facility] Comment on above: Result Comment: Canc elled via OM: Order cancelled - Patient discharged Performed By: #### L 100.0100, L500.2500 ####[facility] [address] [place], [address] Basic Metabolic Profile (BMP )on 10-24-2024 BUN Normal 7-18 [facility] Comment on above: Result Comment: Canc elled via OM: Order cancelled - Patient discharged Performed By: #### L 500.2500, L100.0100 ####[facility] [address] [place], [address] BUN/CRE Normal 10-20 [facility] Comment on above: Result Comment: Canc elled via OM: Order cancelled - Patient discharged Performed By: #### L 500.2500, L100.0100 ####[facility] [address] [place], [address] CA,Total Normal 8.5-10.1 [facility] Comment on above: Result Comment: Canc elled via OM: Order cancelled - Patient discharged Performed By: #### L 500.2500, L100.0100 ####[facility] [address] [place], [address] CL Normal 98-107 [facility] Comment on above: Result Comment: Canc elled via OM: Order cancelled - Patient discharged Performed By: #### L 500.2500, L100.0100 ####[facility] [address] [place], [address] CO2 Normal 21.0-32.0 [facility] Comment on above: Result Comment: Canc elled via OM: Order cancelled - Patient discharged Performed By: #### L 500.2500, L100.0100 ####[facility] [address] [place], [address] CREAT,SERUM Normal 0.55-1.02 [facility] Comment on above: Result Comment: Canc elled via OM: Order cancelled - Patient discharged Performed By: #### L 500.2500, L100.0100 ####[facility] [address] [place], [address] EST GFR Normal >60 [facility] Comment on above: Result Comment: Canc elled via OM: Order cancelled - Patient discharged Performed By: #### L 500.2500, L100.0100 ####[facility] [address] [place], [address] EST GFR - AA Normal >60 [facility] Comment on above: Result Comment: Canc elled via OM: Order cancelled - Patient discharged Performed By: #### L 500.2500, L100.0100 ####[facility] [address] [place], [address] GAP Normal 5-15 [facility] Comment on above: Result Comment: Canc elled via OM: Order cancelled - Patient discharged Performed By: #### L 500.2500, L100.0100 ####[facility] [address] [place], [address] GLU Normal 74-106 [facility] Comment on above: Result Comment: Canc elled via OM: Order cancelled - Patient discharged Performed By: #### L 500.2500, L100.0100 ####[facility] [address] [place], [address] Potassium Normal 3.5-5.1 [facility] Comment on above: Result Comment: Canc elled via OM: Order cancelled - Patient discharged Performed By: #### L 500.2500, L100.0100 ####[facility] [address] [place], [address] Basic Metabolic Profile (BMP) Normal 136-145 [facility] Comment on above: Result Comment: Canc elled via OM: Order cancelled - Patient discharged Performed By: #### L 500.2500, L100.0100 ####[facility] [address] [place], [address] CBC W/Diff, Automatedon 02-2 Absolute Neut Normal 2.0-7.7 [facility] Comment on above: Result Comment: Canc elled via OM: Order cancelled - Patient discharged Performed By: #### L 500.2500, L100.0100 ####[facility] [address] [place], [address] HCT Normal 37-47 [facility] Comment on above: Result Comment: Canc elled via OM: Order cancelled - Patient discharged Performed By: #### L 500.2500, L100.0100 ####[facility] [address] [place], [address] HGB Normal 12.0-15.0 [facility] Comment on above: Result Comment: Canc elled via OM: Order cancelled - Patient discharged Performed By: #### L 500.2500, L100.0100 ####[facility] [address] [place], [address] MCH Normal 27.0-32.0 [facility] Comment on above: Result Comment: Canc elled via OM: Order cancelled - Patient discharged Performed By: #### L 500.2500, L100.0100 ####[facility] [address] [place], [address] MCHC Normal 32-36 [facility] Comment on above: Result Comment: Canc elled via OM: Order cancelled - Patient discharged Performed By: #### L 500.2500, L100.0100 ####[facility] [address] [place], [address] MCV Normal 81-99 [facility] Comment on above: Result Comment: Canc elled via OM: Order cancelled - Patient discharged Performed By: #### L 500.2500, L100.0100 ####[facility] [address] [place], [address] NEUT% Normal 47-70 [facility] Comment on above: Result Comment: Canc elled via OM: Order cancelled - Patient discharged Performed By: #### L 500.2500, L100.0100 ####[facility] [address] [place], [address] PLT Normal 150-450 [facility] Comment on above: Result Comment: Canc elled via OM: Order cancelled - Patient discharged Performed By: #### L 500.2500, L100.0100 ####[facility] [address] [place], [address] RBC Normal 4.2-5.4 [facility] Comment on above: Result Comment: Canc elled via OM: Order cancelled - Patient discharged Performed By: #### L 500.2500, L100.0100 ####[facility] [address] [place], [address] RDW CV Normal 11.6-14.6 [facility] Comment on above: Result Comment: Canc elled via OM: Order cancelled - Patient discharged Performed By: #### L 500.2500, L100.0100 ####[facility] [address] [place], [address] RDW SD Normal 35.1-43.9 [facility] Comment on above: Result Comment: Canc elled via OM: Order cancelled - Patient discharged Performed By: #### L 500.2500, L100.0100 ####[facility] [address] [place], [address] WBC Normal 4.4-11.0 [facility] Comment on above: Result Comment: Canc elled via OM: Order cancelled - Patient discharged Performed By: #### L 500.2500, L100.0100 ####[facility] [address] [place], [address] Basic Metabolic Profile (BMP )on 10-23-2024 BUN Normal 7-18 [facility] Comment on above: Result Comment: Canc elled via OM: Order cancelled - Patient discharged Performed By: #### L 500.2500, L100.0100 ####[facility] [address] [place], [address] BUN/CRE Normal 10-20 [facility] Comment on above: Result Comment: Canc elled via OM: Order cancelled - Patient discharged Performed By: #### L 500.2500, L100.0100 ####[facility] [address] [place], [address] CA,Total Normal 8.5-10.1 [facility] Comment on above: Result Comment: Canc elled via OM: Order cancelled - Patient discharged Performed By: #### L 500.2500, L100.0100 ####[facility] [address] [place], [address] CL Normal 98-107 [facility] Comment on above: Result Comment: Canc elled via OM: Order cancelled - Patient discharged Performed By: #### L 500.2500, L100.0100 ####[facility] [address] [place], [address] CO2 Normal 21.0-32.0 [facility] Comment on above: Result Comment: Canc elled via OM: Order cancelled - Patient discharged Performed By: #### L 500.2500, L100.0100 ####[facility] [address] [place], [address] CREAT,SERUM Normal 0.55-1.02 [facility] Comment on above: Result Comment: Canc elled via OM: Order cancelled - Patient discharged Performed By: #### L 500.2500, L100.0100 ####[facility] [address] [place], [address] EST GFR Normal >60 [facility] Comment on above: Result Comment: Canc elled via OM: Order cancelled - Patient discharged Performed By: #### L 500.2500, L100.0100 ####[facility] [address] [place], [address] EST GFR - AA Normal >60 [facility] Comment on above: Result Comment: Canc elled via OM: Order cancelled - Patient discharged Performed By: #### L 500.2500, L100.0100 ####[facility] [address] [place], [address] GAP Normal 5-15 [facility] Comment on above: Result Comment: Canc elled via OM: Order cancelled - Patient discharged Performed By: #### L 500.2500, L100.0100 ####[facility] [address] [place], [address] GLU Normal 74-106 [facility] Comment on above: Result Comment: Canc elled via OM: Order cancelled - Patient discharged Performed By: #### L 500.2500, L100.0100 ####[facility] [address] [place], [address] Potassium Normal 3.5-5.1 [facility] Comment on above: Result Comment: Canc elled via OM: Order cancelled - Patient discharged Performed By: #### L 500.2500, L100.0100 ####[facility] [address] [place], [address] Basic Metabolic Profile (BMP) Normal 136-145 [facility] Comment on above: Result Comment: Canc elled via OM: Order cancelled - Patient discharged Performed By: #### L 500.2500, L100.0100 ####[facility] [address] [place], [address] CBC W/Diff, Automatedon 02-2 Absolute Neut Normal 2.0-7.7 [facility] Comment on above: Result Comment: Canc elled via OM: Order cancelled - Patient discharged Performed By: #### L 500.2500, L100.0100 ####[facility] [address] [place], [address] HCT Normal 37-47 [facility] Comment on above: Result Comment: Canc elled via OM: Order cancelled - Patient discharged Performed By: #### L 500.2500, L100.0100 ####[facility] [address] [place], [address] HGB Normal 12.0-15.0 [facility] Comment on above: Result Comment: Canc elled via OM: Order cancelled - Patient discharged Performed By: #### L 500.2500, L100.0100 ####[facility] [address] [place], [address] MCH Normal 27.0-32.0 [facility] Comment on above: Result Comment: Canc elled via OM: Order cancelled - Patient discharged Performed By: #### L 500.2500, L100.0100 ####[facility] [address] [place], [address] MCHC Normal 32-36 [facility] Comment on above: Result Comment: Canc elled via OM: Order cancelled - Patient discharged Performed By: #### L 500.2500, L100.0100 ####[facility] [address] [place], [address] MCV Normal 81-99 [facility] Comment on above: Result Comment: Canc elled via OM: Order cancelled - Patient discharged Performed By: #### L 500.2500, L100.0100 ####[facility] [address] [place], [address] NEUT% Normal 47-70 [facility] Comment on above: Result Comment: Canc elled via OM: Order cancelled - Patient discharged Performed By: #### L 500.2500, L100.0100 ####[facility] [address] [place], [address] PLT Normal 150-450 [facility] Comment on above: Result Comment: Canc elled via OM: Order cancelled - Patient discharged Performed By: #### L 500.2500, L100.0100 ####[facility] [address] [place], [address] RBC Normal 4.2-5.4 [facility] Comment on above: Result Comment: Canc elled via OM: Order cancelled - Patient discharged Performed By: #### L 500.2500, L100.0100 ####[facility] [address] [place], [address] RDW CV Normal 11.6-14.6 [facility] Comment on above: Result Comment: Canc elled via OM: Order cancelled - Patient discharged Performed By: #### L 500.2500, L100.0100 ####[facility] [address] [place], [address] RDW SD Normal 35.1-43.9 [facility] Comment on above: Result Comment: Canc elled via OM: Order cancelled - Patient discharged Performed By: #### L 500.2500, L100.0100 ####[facility] [address] [place], [address] WBC Normal 4.4-11.0 [facility] Comment on above: Result Comment: Canc elled via OM: Order cancelled - Patient discharged Performed By: #### L 500.2500, L100.0100 ####[facility] [address] [place], [address] Basic Metabolic Profile (BMP )on 10-22-2024 BUN Normal 7-18 [facility] Comment on above: Result Comment: Canc elled via OM: Order cancelled - Patient discharged Performed By: #### L 500.2500, L100.0100 ####[facility] [address] [place], [address] BUN/CRE Normal 10-20 [facility] Comment on above: Result Comment: Canc elled via OM: Order cancelled - Patient discharged Performed By: #### L 500.2500, L100.0100 ####[facility] [address] [place], [address] CA,Total Normal 8.5-10.1 [facility] Comment on above: Result Comment: Canc elled via OM: Order cancelled - Patient discharged Performed By: #### L 500.2500, L100.0100 ####[facility] [address] [place], [address] CL Normal 98-107 [facility] Comment on above: Result Comment: Canc elled via OM: Order cancelled - Patient discharged Performed By: #### L 500.2500, L100.0100 ####[facility] [address] [place], [address] CO2 Normal 21.0-32.0 [facility] Comment on above: Result Comment: Canc elled via OM: Order cancelled - Patient discharged Performed By: #### L 500.2500, L100.0100 ####[facility] [address] [place], [address] CREAT,SERUM Normal 0.55-1.02 [facility] Comment on above: Result Comment: Canc elled via OM: Order cancelled - Patient discharged Performed By: #### L 500.2500, L100.0100 ####[facility] [address] [place], [address] EST GFR Normal >60 [facility] Comment on above: Result Comment: Canc elled via OM: Order cancelled - Patient discharged Performed By: #### L 500.2500, L100.0100 ####[facility] [address] [place], [address] EST GFR - AA Normal >60 [facility] Comment on above: Result Comment: Canc elled via OM: Order cancelled - Patient discharged Performed By: #### L 500.2500, L100.0100 ####[facility] [address] [place], [address] GAP Normal 5-15 [facility] Comment on above: Result Comment: Canc elled via OM: Order cancelled - Patient discharged Performed By: #### L 500.2500, L100.0100 ####[facility] [address] [place], [address] GLU Normal 74-106 [facility] Comment on above: Result Comment: Canc elled via OM: Order cancelled - Patient discharged Performed By: #### L 500.2500, L100.0100 ####[facility] [address] [place], [address] Potassium Normal 3.5-5.1 [facility] Comment on above: Result Comment: Canc elled via OM: Order cancelled - Patient discharged Performed By: #### L 500.2500, L100.0100 ####[facility] [address] [place], [address] Basic Metabolic Profile (BMP) Normal 136-145 [facility] Comment on above: Result Comment: Canc elled via OM: Order cancelled - Patient discharged Performed By: #### L 500.2500, L100.0100 ####[facility] [address] [place], [address] CBC W/Diff, Automatedon 02-2 Absolute Neut Normal 2.0-7.7 [facility] Comment on above: Result Comment: Canc elled via OM: Order cancelled - Patient discharged Performed By: #### L 500.2500, L100.0100 ####[facility] [address] [place], [address] HCT Normal 37-47 [facility] Comment on above: Result Comment: Canc elled via OM: Order cancelled - Patient discharged Performed By: #### L 500.2500, L100.0100 ####[facility] [address] [place], [address] HGB Normal 12.0-15.0 [facility] Comment on above: Result Comment: Canc elled via OM: Order cancelled - Patient discharged Performed By: #### L 500.2500, L100.0100 ####[facility] [address] [place], [address] MCH Normal 27.0-32.0 [facility] Comment on above: Result Comment: Canc elled via OM: Order cancelled - Patient discharged Performed By: #### L 500.2500, L100.0100 ####[facility] [address] [place], [address] MCHC Normal 32-36 [facility] Comment on above: Result Comment: Canc elled via OM: Order cancelled - Patient discharged Performed By: #### L 500.2500, L100.0100 ####[facility] [address] [place], [address] MCV Normal 81-99 [facility] Comment on above: Result Comment: Canc elled via OM: Order cancelled - Patient discharged Performed By: #### L 500.2500, L100.0100 ####[facility] [address] [place], [address] NEUT% Normal 47-70 [facility] Comment on above: Result Comment: Canc elled via OM: Order cancelled - Patient discharged Performed By: #### L 500.2500, L100.0100 ####[facility] [address] [place], [address] PLT Normal 150-450 [facility] Comment on above: Result Comment: Canc elled via OM: Order cancelled - Patient discharged Performed By: #### L 500.2500, L100.0100 ####[facility] [address] [place], [address] RBC Normal 4.2-5.4 [facility] Comment on above: Result Comment: Canc elled via OM: Order cancelled - Patient discharged Performed By: #### L 500.2500, L100.0100 ####[facility] [address] [place], [address] RDW CV Normal 11.6-14.6 [facility] Comment on above: Result Comment: Canc elled via OM: Order cancelled - Patient discharged Performed By: #### L 500.2500, L100.0100 ####[facility] [address] [place], [address] RDW SD Normal 35.1-43.9 [facility] Comment on above: Result Comment: Canc elled via OM: Order cancelled - Patient discharged Performed By: #### L 500.2500, L100.0100 ####[facility] [address] [place], [address] WBC Normal 4.4-11.0 [facility] Comment on above: Result Comment: Canc elled via OM: Order cancelled - Patient discharged Performed By: #### L 500.2500, L100.0100 ####[facility] [address] [place], [address] Basic Metabolic Profile (BMP )on 10-21-2024 BUN/CRE 17.1 RATIO Normal 10-20 [facility] Comment on above: Performed By: #### L 500.2500, L100.0100 ####[facility] [address] [place], [address] CA,Total 9.4 mg/dL Normal 8.5-10.1 [facility] Comment on above: Performed By: #### L 500.2500, L100.0100 ####[facility] [address] [place], [address] Chloride [Moles/Vol] 97 mmol/L Low 98-107 [facility] Comment on above: Performed By: #### L 500.2500, L100.0100 ####[facility] [address] [place], [address] CO2 [Moles/Vol] 16.0 mmol/L Low 21.0-32.0 [facility] Comment on above: Performed By: #### L 500.2500, L100.0100 ####[facility] [address] [place], [address] Creatinine [Mass/Vol] 0.88 mg/dL Normal 0.55-1.02 [facility] Comment on above: Result Comment: The validity of the calculated GFR GFRAA in patients over70 years has not been determined. Clinical correlation isessential. Performed By: #### L 500.2500, L100.0100 ####[facility] [address] [place], [address] ECRCL 97.69 ml/min Normal [facility] Comment on above: Performed By: #### L 500.2500, L100.0100 ####[facility] [address] [place], [address] EST GFR - AA 97 mL/min Normal >60 [facility] Comment on above: Result Comment: Afri can Beninese GFR Calc Performed By: #### L 500.2500, L100.0100 ####[facility] [address] [place], [address] GAP 15 Normal 5-15 [facility] Comment on above: Performed By: #### L 500.2500, L100.0100 ####[facility] [address] [place], [address] GFR/1.73 sq M.predicted among non-blacks MDRD (S/P/Bld) [Vol rate/Area] 80 mL/min/{1.73_m2} Normal >60 [facility] Comment on above: Result Comment: Non- GFR Calc Performed By: #### L 500.2500, L100.0100 ####[facility] [address] [place], [address] Glucose [Mass/Vol] 546 mg/dL Invalid Interpretation Code 74-106 [facility] Comment on above: Result Comment: Crit ical Result(s) Called at: 05:07:31 10/21/2024 by:[facility]. Results read back by same.Glucose result greater than or equal to 200 mg/dLsuggests DIABETES MELLITUS per A.D.A. criteria. Performed By: #### L 500.2500, L100.0100 ####[facility] [address] [place], [address] Potassium [Moles/Vol] 5.3 mmol/L High 3.5-5.1 [facility] Comment on above: Performed By: #### L 500.2500, L100.0100 ####[facility] [address] [place], [address] Sodium [Moles/Vol] 128 mmol/L Low 136-145 [facility] Comment on above: Performed By: #### L 500.2500, L100.0100 ####[facility] [address] [place], [address] Urea nitrogen [Mass/Vol] 15 mg/dL Normal 7-18 [facility] Comment on above: Performed By: #### L 500.2500, L100.0100 ####[facility] [address] [place], [address] Bedside Glucoseon 10-21-2024 FINGERSTICK GLU 296 mg/dL High [address] [place] [address] Comment on above: Result Comment: EDGAR GEMENT OF PATIENT CARE PER NURSING PROTOCOL Performed By: #### L 501.080 ####[facility] [address] [place], [address] FINGERSTICK GLU 187 mg/dL High [address] [place] [address] Comment on above: Result Comment: EDGAR GEMENT OF PATIENT CARE PER NURSING PROTOCOL Performed By: #### L 501.080 ####[facility] [address] [place], [address] FINGERSTICK GLU 408 mg/dL High [address] [place] [address] Comment on above: Result Comment: EDGAR GEMENT OF PATIENT CARE PER NURSING PROTOCOL Performed By: #### L 501.080 ####[facility] [address] [place], [address] FINGERSTICK GLU 481 mg/dL Invalid Interpretation Code -[address] [place] [address] Comment on above: Result Comment: Repe at TestMANAGEMENT OF PATIENT CARE PER NURSING PROTOCOL Performed By: #### L 501.080 ####[facility] [address] [place], [address] CBC W/Diff, Automatedon 09-29 Absolute Lymph 2.01 X10 3/uL Normal 0.83-4.51 [facility] Comment on above: Performed By: #### L 500.2500, L100.0100 ####[facility] [address] [place], [address] Absolute Neut 13.3 X10 3/uL High 2.0-7.7 [facility] Comment on above: Performed By: #### L 500.2500, L100.0100 ####[facility] [address] [place], [address] Basophils/100 WBC (Bld) 0.5 % Normal 0-1 [facility] Comment on above: Performed By: #### L 500.2500, L100.0100 ####[facility] [address] [place], [address] Eosinophils/100 WBC (Bld) 1.8 % Normal 0-5 [facility] Comment on above: Performed By: #### L 500.2500, L100.0100 ####[facility] [address] [place], [address] Erythrocyte distribution width (RBC) [Ratio] 12.9 % Normal 11.6-14.6 [facility] Comment on above: Performed By: #### L 500.2500, L100.0100 ####[facility] [address] [place], [address] Hematocrit (Bld) [Volume fraction] 44.3 % Normal 37-47 [facility] Comment on above: Performed By: #### L 500.2500, L100.0100 ####[facility] [address] [place], [address] Hemoglobin (Bld) [Mass/Vol] 14.3 g/dL Normal 12.0-15.0 [facility] Comment on above: Performed By: #### L 500.2500, L100.0100 ####[facility] [address] [place], [address] IG% 0.800 Normal 0.0-0.9 [facility] Comment on above: Result Comment: IG% - Immature Granulocytes (promyelocytes, myelocytes andmetamyelocytes) > 1% indicates that a LEFT SHIFT is Present. Performed By: #### L 500.2500, L100.0100 ####[facility] [address] [place], [address] Lymphocytes/100 WBC (Bld) 12.2 % Low 19-41 [facility] Comment on above: Performed By: #### L 500.2500, L100.0100 ####[facility] [address] [place], [address] MCH (RBC) [Entitic mass] 28.8 pg Normal 27.0-32.0 [facility] Comment on above: Performed By: #### L 500.2500, L100.0100 ####[facility] [address] [place], [address] MCHC (RBC) [Mass/Vol] 32.3 g/dL Normal 32-36 [facility] Comment on above: Performed By: #### L 500.2500, L100.0100 ####[facility] [address] [place], [address] MCV (RBC) [Entitic vol] 89.1 fL Normal 81-99 [facility] Comment on above: Performed By: #### L 500.2500, L100.0100 ####[facility] [address] [place], [address] Monocytes/100 WBC (Bld) 4.3 % Normal 0-10 [facility] Comment on above: Performed By: #### L 500.2500, L100.0100 ####[facility] [address] [place], [address] Neutrophils/100 WBC (Bld) 80.4 % High 47-70 [facility] Comment on above: Performed By: #### L 500.2500, L100.0100 ####[facility] [address] [place], [address] Nucleated RBC (Bld) [#/Vol] 0 10*3/uL Normal 0-5 [facility] Comment on above: Performed By: #### L 500.2500, L100.0100 ####[facility] [address] [place], [address] Platelet mean volume (Bld) [Entitic vol] 12.6 fL High 6.2-12.0 [facility] Comment on above: Performed By: #### L 500.2500, L100.0100 ####[facility] [address] [place], [address] Platelets (Bld) [#/Vol] 192 10*3/uL Normal 150-450 [facility] Comment on above: Performed By: #### L 500.2500, L100.0100 ####[facility] [address] [place], [address] RBC (Bld) [#/Vol] 4.97 10*6/uL Normal 4.2-5.4 [facility] Comment on above: Performed By: #### L 500.2500, L100.0100 ####[facility] [address] [place], [address] RDW SD 41.7 fl Normal 35.1-43.9 [facility] Comment on above: Performed By: #### L 500.2500, L100.0100 ####[facility] [address] [place], [address] WBC (Bld) [#/Vol] 16.5 10*3/uL High 4.4-11.0 [facility] Comment on above: Performed By: #### L 500.2500, L100.0100 ####[facility] [address] [place], [address] Discharge Instructionon -2 Discharge Instruction Normal [facility] Basic Metabolic Profile (BMP )on 10-20-2024 BUN/CRE 13.2 RATIO Normal 10-20 [facility] Comment on above: Performed By: #### L 500.2500, L100.0100 ####[facility] [address] [place], [address] [place],Total 8.8 mg/dL Normal 8.5-10.1 [facility] Comment on above: Performed By: #### L 500.2500, L100.0100 ####[facility] [address] [place], [address] Chloride [Moles/Vol] 104 mmol/L Normal 98-107 [facility] Comment on above: Performed By: #### L 500.2500, L100.0100 ####[facility] [address] [place], [address] CO2 [Moles/Vol] 22.0 mmol/L Normal 21.0-32.0 [facility] Comment on above: Performed By: #### L 500.2500, L100.0100 ####[facility] [address] [place], [address] Creatinine [Mass/Vol] 0.61 mg/dL Normal 0.55-1.02 [facility] Comment on above: Result Comment: The validity of the calculated GFR GFRAA in patients over70 years has not been determined. Clinical correlation isessential. Performed By: #### L 500.2500, L100.0100 ####[facility] [address] [place], [address] ECRCL 140.93 ml/min Normal [facility] Comment on above: Performed By: #### L 500.2500, L100.0100 ####[facility] [address] [place], [address] EST GFR - AA 149 mL/min Normal >60 [facility] Comment on above: Result Comment: Afri can Beninese GFR Calc Performed By: #### L 500.2500, L100.0100 ####[facility] [address] [place], [address] GAP 8 Normal 5-15 [facility] Comment on above: Performed By: #### L 500.2500, L100.0100 ####[facility] [address] [place], [address] GFR/1.73 sq M.predicted among non-blacks MDRD (S/P/Bld) [Vol rate/Area] 123 mL/min/{1.73_m2} Normal >60 [facility] Comment on above: Result Comment: Non- GFR Calc Performed By: #### L 500.2500, L100.0100 ####[facility] [address] [place], [address] Glucose [Mass/Vol] 222 mg/dL High 74-106 [facility] Comment on above: Result Comment: Gluc ose result greater than or equal to 200 mg/dLsuggests DIABETES MELLITUS per A.D.A. criteria. Performed By: #### L 500.2500, L100.0100 ####[facility] [address] [place], [address] Potassium [Moles/Vol] 4.2 mmol/L Normal 3.5-5.1 [facility] Comment on above: Performed By: #### L 500.2500, L100.0100 ####[facility] [address] [place], [address] Sodium [Moles/Vol] 134 mmol/L Low 136-145 [facility] Comment on above: Performed By: #### L 500.2500, L100.0100 ####[facility] [address] [place], [address] Urea nitrogen [Mass/Vol] 8 mg/dL Normal 7-18 [facility] Comment on above: Performed By: #### L 500.2500, L100.0100 ####[facility] [address] [place], [address] Bedside Glucoseon 10-20-2024 FINGERSTICK GLU 94 mg/dL Normal 74-106 [facility] Comment on above: Result Comment: EDGAR HUNG OF PATIENT CARE PER NURSING PROTOCOL Performed By: #### L 501.080 ####[facility] [address] [place], [address] FINGERSTICK GLU 337 mg/dL High 74-106 [facility] Comment on above: Result Comment: EDGAR GEMENT OF PATIENT CARE PER NURSING PROTOCOL Performed By: #### L 501.080 ####[facility] [address] [place], [address] FINGERSTICK GLU 441 mg/dL High 74-106 [facility] Comment on above: Result Comment: EDGAR GEMENT OF PATIENT CARE PER NURSING PROTOCOL Performed By: #### L 501.080 ####[facility] [address] [place], [address] FINGERSTICK GLU 200 mg/dL High -106 [facility] Comment on above: Result Comment: EDGAR GEMENT OF PATIENT CARE PER NURSING PROTOCOL Performed By: #### L 501.080 ####[facility] [address] [place], [address] FINGERSTICK GLU 90 mg/dL Normal 74-106 [facility] Comment on above: Result Comment: EDGAR GEMENT OF PATIENT CARE PER NURSING PROTOCOL Performed By: #### L 501.080 ####[facility] [address] [place], [address] FINGERSTICK GLU 182 mg/dL High 74-106 [facility] Comment on above: Result Comment: EDGAR GEMENT OF PATIENT CARE PER NURSING PROTOCOL Performed By: #### L 501.080 ####[facility] [address] [place], [address] FINGERSTICK GLU 303 mg/dL High [facility]106 [facility] Comment on above: Result Comment: EDGAR GEMENT OF PATIENT CARE PER NURSING PROTOCOL Performed By: #### L 501.080 ####[facility] [address] [place], [address] CBC W/Diff, Automatedon 09-29 Absolute Lymph 2.82 X10 3/uL Normal 0.83-4.51 [facility] Comment on above: Performed By: #### L 500.2500, L100.0100 ####[facility] [address] [place], [address] Absolute Neut 6.3 X10 3/uL Normal 2.0-7.7 [facility] Comment on above: Performed By: #### L 500.2500, L100.0100 ####[facility] [address] [place], [address] Basophils/100 WBC (Bld) 0.4 % Normal 0-1 [facility] Comment on above: Performed By: #### L 500.2500, L100.0100 ####[facility] [address] [place], [address] Eosinophils/100 WBC (Bld) 3.1 % Normal 0-5 [facility] Comment on above: Performed By: #### L 500.2500, L100.0100 ####[facility] [address] [place], [address] Erythrocyte distribution width (RBC) [Ratio] 13.0 % Normal 11.6-14.6 [facility] Comment on above: Performed By: #### L 500.2500, L100.0100 ####[facility] [address] [place], [address] Hematocrit (Bld) [Volume fraction] 40.2 % Normal 37-47 [facility] Comment on above: Performed By: #### L 500.2500, L100.0100 ####[facility] [address] [place], [address] Hemoglobin (Bld) [Mass/Vol] 13.0 g/dL Normal 12.0-15.0 [facility] Comment on above: Performed By: #### L 500.2500, L100.0100 ####[facility] [address] [place], [address] IG% 0.700 Normal 0.0-0.9 [facility] Comment on above: Result Comment: IG% - Immature Granulocytes (promyelocytes, myelocytes andmetamyelocytes) > 1% indicates that a LEFT SHIFT is Present. Performed By: #### L 500.2500, L100.0100 ####[facility] [address] [place], [address] Lymphocytes/100 WBC (Bld) 27.9 % Normal 19-41 [facility] Comment on above: Performed By: #### L 500.2500, L100.0100 ####[facility] [address] [place], [address] MCH (RBC) [Entitic mass] 28.6 pg Normal 27.0-32.0 [facility] Comment on above: Performed By: #### L 500.2500, L100.0100 ####[facility] [address] [place], [address] MCHC (RBC) [Mass/Vol] 32.3 g/dL Normal 32-36 [facility] Comment on above: Performed By: #### L 500.2500, L100.0100 ####[facility] [address] [place], [address] MCV (RBC) [Entitic vol] 88.5 fL Normal 81-99 [facility] Comment on above: Performed By: #### L 500.2500, L100.0100 ####[facility] [address] [place], [address] Monocytes/100 WBC (Bld) 5.5 % Normal 0-10 [facility] Comment on above: Performed By: #### L 500.2500, L100.0100 ####[facility] [address] [place], [address] Neutrophils/100 WBC (Bld) 62.4 % Normal 47-70 [facility] Comment on above: Performed By: #### L 500.2500, L100.0100 ####[facility] [address] [place], [address] Nucleated RBC (Bld) [#/Vol] 0 10*3/uL Normal 0-5 [facility] Comment on above: Performed By: #### L 500.2500, L100.0100 ####[facility] [address] [place], [address] Platelet mean volume (Bld) [Entitic vol] 12.5 fL High 6.2-12.0 [facility] Comment on above: Performed By: #### L 500.2500, L100.0100 ####[facility] [address] [place], [address] Platelets (Bld) [#/Vol] 158 10*3/uL Normal 150-450 [facility] Comment on above: Performed By: #### L 500.2500, L100.0100 ####[facility] [address] [place], [address] RBC (Bld) [#/Vol] 4.54 10*6/uL Normal 4.2-5.4 [facility] Comment on above: Performed By: #### L 500.2500, L100.0100 ####[facility] [address] [place], [address] RDW SD 42.4 fl Normal 35.1-43.9 [facility] Comment on above: Performed By: #### L 500.2500, L100.0100 ####[facility] [address] [place], [address] WBC (Bld) [#/Vol] 10.1 10*3/uL Normal 4.4-11.0 [facility] Comment on above: Performed By: #### L 500.2500, L100.0100 ####[facility] [address] [place], [address] Urine Cultureon 10-20-2024 URC Mixed Gram Positive Organisms [place] Count 11,000-25,000 MIXC Mixed contaminants. Submit a new specimen if indicated. Normal [facility] Comment on above: Performed By: #### M 100.2200 ####[facility] [address] [place], [address] Bedside Glucoseon 10-19-2024 FINGERSTICK GLU 246 mg/dL High 74-106 [facility] Comment on above: Result Comment: EDGAR GEMENT OF PATIENT CARE PER NURSING PROTOCOL Performed By: #### L 501.080 ####[facility] [address] [place], [address] FINGERSTICK GLU 85 mg/dL Normal [address] [place] [address] Comment on above: Result Comment: EDGAR GEMENT OF PATIENT CARE PER NURSING PROTOCOL Performed By: #### L 501.080 ####[facility] [address] [place], [address] FINGERSTICK GLU 35 mg/dL Invalid Interpretation Code -[address] [place] [address] Comment on above: Result Comment: EDGAR GEMENT OF PATIENT CARE PER NURSING PROTOCOL Performed By: #### L 501.080 ####[facility] [address] [place], [address] FINGERSTICK GLU 64 mg/dL Low -[address] [place] [address] Comment on above: Result Comment: EDGAR GEMENT OF PATIENT CARE PER NURSING PROTOCOL Performed By: #### L 501.080 ####[facility] [address] [place], [address] FINGERSTICK GLU 156 mg/dL High [address] [place] [address] Comment on above: Result Comment: EDGAR GEMENT OF PATIENT CARE PER NURSING PROTOCOL Performed By: #### L 501.080 ####[facility] [address] [place], [address] FINGERSTICK GLU 53 mg/dL Low 74-106 [facility] Comment on above: Result Comment: EDGAR GEMENT OF PATIENT CARE PER NURSING PROTOCOL Performed By: #### L 501.080 ####[facility] [address] [place], [address] FINGERSTICK GLU 40 mg/dL Invalid Interpretation Code 74-106 [facility] Comment on above: Result Comment: [facility] k GivenMANAGEMENT OF PATIENT CARE PER NURSING PROTOCOL Performed By: #### L 501.080 ####[facility] [address] [place], [address] FINGERSTICK GLU 235 mg/dL High -106 [facility] Comment on above: Result Comment: EDGAR GEMENT OF PATIENT CARE PER NURSING PROTOCOL Performed By: #### L 501.080 ####[facility] [address] [place], [address] FINGERSTICK GLU 52 mg/dL Low -106 [facility] Comment on above: Result Comment: EDGAR GEMENT OF PATIENT CARE PER NURSING PROTOCOL Performed By: #### L 501.080 ####[facility] [address] [place], [address] FINGERSTICK GLU 132 mg/dL High -106 [facility] Comment on above: Result Comment: EDGAR GEMENT OF PATIENT CARE PER NURSING PROTOCOL Performed By: #### L 501.080 ####[facility] [address] [place], [address] CBC W/Diff, Automatedon - Absolute Lymph 3.09 X10 3/uL Normal 0.83-4.51 [facility] Comment on above: Performed By: #### L 500.4050, L100.0100 ####[facility] [address] [place], [address] Absolute Neut 6.9 X10 3/uL Normal 2.0-7.7 [facility] Comment on above: Performed By: #### L 500.4050, L100.0100 ####[facility] [address] [place], [address] Basophils/100 WBC (Bld) 0.5 % Normal 0-1 [facility] Comment on above: Performed By: #### L 500.4050, L100.0100 ####[facility] [address] [place], [address] Eosinophils/100 WBC (Bld) 1.8 % Normal 0-5 [facility] Comment on above: Performed By: #### L 500.4050, L100.0100 ####[facility] [address] [place], [address] Erythrocyte distribution width (RBC) [Ratio] 13.2 % Normal 11.6-14.6 [facility] Comment on above: Performed By: #### L 500.4050, L100.0100 ####[facility] [address] [place], [address] Hematocrit (Bld) [Volume fraction] 37.6 % Normal 37-47 [facility] Comment on above: Performed By: #### L 500.4050, L100.0100 ####[facility] [address] [place], [address] Hemoglobin (Bld) [Mass/Vol] 12.5 g/dL Normal 12.0-15.0 [facility] Comment on above: Performed By: #### L 500.4050, L100.0100 ####[facility] [address] [place], [address] IG% 0.800 Normal 0.0-0.9 [facility] Comment on above: Result Comment: IG% - Immature Granulocytes (promyelocytes, myelocytes andmetamyelocytes) > 1% indicates that a LEFT SHIFT is Present. Performed By: #### L 500.4050, L100.0100 ####[facility] [address] [place], [address] Lymphocytes/100 WBC (Bld) 27.9 % Normal 19-41 [facility] Comment on above: Performed By: #### L 500.4050, L100.0100 ####[facility] [address] [place], [address] MCH (RBC) [Entitic mass] 29.3 pg Normal 27.0-32.0 [facility] [facility] Comment on above: Performed By: #### L 500.4050, L100.0100 ####[facility] [address] [place], [address] MCHC (RBC) [Mass/Vol] 33.2 g/dL Normal 32-36 [facility] Comment on above: Performed By: #### L 500.4050, L100.0100 ####[facility] [address] [place], [address] MCV (RBC) [Entitic vol] 88.1 fL Normal 81-99 [facility] Comment on above: Performed By: #### L 500.4050, L100.0100 ####[facility] [address] [place], [address] Monocytes/100 WBC (Bld) 6.8 % Normal 0-10 [facility] Comment on above: Performed By: #### L 500.4050, L100.0100 ####[facility] [address] [place], [address] Neutrophils/100 WBC (Bld) 62.2 % Normal 47-70 [facility] Comment on above: Performed By: #### L 500.4050, L100.0100 ####[facility] [address] [place], [address] Nucleated RBC (Bld) [#/Vol] 0 10*3/uL Normal 0-5 [facility] Comment on above: Performed By: #### L 500.4050, L100.0100 ####[facility] [address] [place], [address] Platelet mean volume (Bld) [Entitic vol] 12.0 fL Normal 6.2-12.0 [facility] Comment on above: Performed By: #### L 500.4050, L100.0100 ####[facility] [address] [place], [address] Platelets (Bld) [#/Vol] 149 10*3/uL Low 150-450 [facility] Comment on above: Performed By: #### L 500.4050, L100.0100 ####[facility] [address] [place], [address] RBC (Bld) [#/Vol] 4.27 10*6/uL Normal 4.2-5.4 [facility] Comment on above: Performed By: #### L 500.4050, L100.0100 ####[facility] [address] [place], [address] RDW SD 42.4 fl Normal 35.1-43.9 [facility] Comment on above: Performed By: #### L 500.4050, L100.0100 ####[facility] [address] [place], [address] WBC (Bld) [#/Vol] 11.1 10*3/uL High 4.4-11.0 [facility] Comment on above: Performed By: #### L 500.4050, L100.0100 ####[facility] [address] [place], [address] Comprehensive Metabolic Prof ilon 10-19-2024 Albumin [Mass/Vol] 3.0 g/dL Low 3.2-5.0 [facility] Comment on above: Performed By: #### L 500.4050, L100.0100 ####[facility] [address] [place], [address] Albumin/Globulin [Mass ratio] 0.9 {ratio} Normal 0.9-2.4 [facility] Comment on above: Performed By: #### L 500.4050, L100.0100 ####[facility] [address] [place], [address] ALK P 67 U/L Normal 45-117 [facility] Comment on above: Performed By: #### L 500.4050, L100.0100 ####[facility] [address] [place], [address] ALT [Catalytic activity/Vol] 21 U/L Normal 13-56 [facility] Comment on above: Performed By: #### L 500.4050, L100.0100 ####[facility] [address] [place], [address] AST [Catalytic activity/Vol] 13 U/L Low 15-37 [facility] Comment on above: Performed By: #### L 500.4050, L100.0100 ####[facility] [address] [place], [address] Bilirubin [Mass/Vol] 0.40 mg/dL Normal 0.20-1.00 [facility] Comment on above: Result Comment: For patients on eltrombopag therapy, use of Dimension [place] TBIL is not recommended. Performed By: #### L 500.4050, L100.0100 ####[facility] [address] [place], [address] BUN/CRE 14.4 RATIO Normal 10-20 [facility] Comment on above: Performed By: #### L 500.4050, L100.0100 ####[facility] [address] [place], [address] CA,Total 8.2 mg/dL Low 8.5-10.1 [facility] Comment on above: Performed By: #### L 500.4050, L100.0100 ####[facility] [address] [place], [address] Chloride [Moles/Vol] 112 mmol/L High 98-107 [facility] Comment on above: Performed By: #### L 500.4050, L100.0100 ####[facility] [address] [place], [address] CO2 [Moles/Vol] 21.0 mmol/L Normal 21.0-32.0 [facility] Comment on above: Performed By: #### L 500.4050, L100.0100 ####[facility] [address] [place], [address] Creatinine [Mass/Vol] 0.55 mg/dL Normal 0.55-1.02 [facility] Comment on above: Result Comment: The validity of the calculated GFR GFRAA in patients over70 years has not been determined. Clinical correlation isessential. Performed By: #### L 500.4050, L100.0100 ####[facility] [address] [place], [address] ECRCL 156.31 ml/min Normal [facility] Comment on above: Performed By: #### L 500.4050, L100.0100 ####[facility] [address] [place], [address] EST GFR - AA 165 mL/min Normal >60 [facility] Comment on above: Result Comment: Afri can Beninese GFR Calc Performed By: #### L 500.4050, L100.0100 ####[facility] [address] [place], [address] GAP 8 Normal 5-15 [facility] Comment on above: Performed By: #### L 500.4050, L100.0100 ####[facility] [address] [place], [address] GFR/1.73 sq M.predicted among non-blacks MDRD (S/P/Bld) [Vol rate/Area] 137 mL/min/{1.73_m2} Normal >60 [facility] Comment on above: Result Comment: Non- GFR Calc Performed By: #### L 500.4050, L100.0100 ####[facility] [address] [place], [address] Globulin (S) [Mass/Vol] 3.2 g/dL Normal 2.2-4.2 [facility] Comment on above: Performed By: #### L 500.4050, L100.0100 ####[facility] [address] [place], [address] Glucose [Mass/Vol] 49 mg/dL Low 74-106 [facility] Comment on above: Result Comment: Gluc ose result less than 50 mg/dL suggests HYPOGLYCEMIA. Performed By: #### L 500.4050, L100.0100 ####[facility] [address] [place], [address] Potassium [Moles/Vol] 3.7 mmol/L Normal 3.5-5.1 [facility] Comment on above: Performed By: #### L 500.4050, L100.0100 ####[facility] [address] [place], [address] Sodium [Moles/Vol] 140 mmol/L Normal 136-145 [facility] Comment on above: Performed By: #### L 500.4050, L100.0100 ####[facility] [address] [place], [address] T PROT 6.2 g/dL Low 6.4-8.2 [facility] Comment on above: Performed By: #### L 500.4050, L100.0100 ####[facility] [address] [place], [address] Urea nitrogen [Mass/Vol] 8 mg/dL Normal 7-18 [facility] Comment on above: Performed By: #### L 500.4050, L100.0100 ####[facility] [address] [place], [address] Glucoseon 10-19-2024 Glucose [Mass/Vol] 231 mg/dL High 74-106 [facility] Comment on above: Result Comment: Gluc ose result greater than or equal to 200 mg/dLsuggests DIABETES MELLITUS per A.D.A. criteria. Performed By: #### L 501.0100 ####[facility] [address] [place], [address] Glucose [Mass/Vol] 88 mg/dL Normal 74-106 [facility] Comment on above: Performed By: #### L 501.0100 ####[facility] [address] [place], [address] 12 Lead EKGon 10-18-2024 12 Lead EKG Normal [facility] Abdomen/Pelvis W IV Cont ONL Yon 10-18-2024 Abdomen/Pelvis W IV Cont ONLY Normal [facility] Acetone Serumon 10-18-2024 ACETONE SERUM Negative Normal NEG [facility] Comment on above: Performed By: #### L 501.6900 ####[facility] [address] [place], [address] Bedside Glucoseon 10-18-2024 FINGERSTICK GLU 85 mg/dL Normal 74-106 [facility] Comment on above: Result Comment: EDGAR HUNG OF PATIENT CARE PER NURSING PROTOCOL Performed By: #### L 501.080 ####[facility] [address] [place], [address] FINGERSTICK GLU 100 mg/dL Normal 74-106 [facility] Comment on above: Result Comment: EDGAR GEMENT OF PATIENT CARE PER NURSING PROTOCOL Performed By: #### L 501.080 ####[facility] [address] [place], [address] FINGERSTICK GLU 62 mg/dL Low 74-106 [facility] Comment on above: Result Comment: EDGAR GEMENT OF PATIENT CARE PER NURSING PROTOCOL Performed By: #### L 501.080 ####[facility] [address] [place], [address] CBC W/Diff, Automatedon 02- Absolute Lymph 1.82 X10 3/uL Normal 0.83-4.51 [facility] Comment on above: Performed By: #### L 500.4050, L100.0100, L700.6800, L501.2450 ####[facility] [address] [place], [address] Absolute Neut 14.0 X10 3/uL High 2.0-7.7 [facility] Comment on above: Performed By: #### L 500.4050, L100.0100, L700.6800, L501.2450 ####[facility] [address] [place], [address] Basophils/100 WBC (Bld) 0.2 % Normal 0-1 [facility] Comment on above: Performed By: #### L 500.4050, L100.0100, L700.6800, L501.2450 ####[facility] [address] [place], [address] Eosinophils/100 WBC (Bld) 0.2 % Normal 0-5 [facility] Comment on above: Performed By: #### L 500.4050, L100.0100, L700.6800, L501.2450 ####[facility] [address] [place], [address] Erythrocyte distribution width (RBC) [Ratio] 13.1 % Normal 11.6-14.6 [facility] Comment on above: Performed By: #### L 500.4050, L100.0100, L700.6800, L501.2450 ####[facility] [address] [place], [address] Hematocrit (Bld) [Volume fraction] 38.8 % Normal 37-47 [facility] Comment on above: Performed By: #### L 500.4050, L100.0100, L700.6800, L501.2450 ####[facility] [address] [place], [address] Hemoglobin (Bld) [Mass/Vol] 12.9 g/dL Normal 12.0-15.0 [facility] Comment on above: Performed By: #### L 500.4050, L100.0100, L700.6800, L501.2450 ####[facility] [address] [place], [address] IG% 0.600 Normal 0.0-0.9 [facility] Comment on above: Result Comment: IG% - Immature Granulocytes (promyelocytes, myelocytes andmetamyelocytes) > 1% indicates that a LEFT SHIFT is Present. Performed By: #### L 500.4050, L100.0100, L700.6800, L501.2450 ####[facility] [address] [place], [address] Lymphocytes/100 WBC (Bld) 10.7 % Low 19-41 [facility] Comment on above: Performed By: #### L 500.4050, L100.0100, L700.6800, L501.2450 ####[facility] [address] [place], [address] MCH (RBC) [Entitic mass] 29.3 pg Normal 27.0-32.0 [facility] Comment on above: Performed By: #### L 500.4050, L100.0100, L700.6800, L501.2450 ####[facility] [address] [place], [address] MCHC (RBC) [Mass/Vol] 33.2 g/dL Normal 32-36 [facility] Comment on above: Performed By: #### L 500.4050, L100.0100, L700.6800, L501.2450 ####[facility] [address] [place], [address] MCV (RBC) [Entitic vol] 88.2 fL Normal 81-99 [facility] Comment on above: Performed By: #### L 500.4050, L100.0100, L700.6800, L501.2450 ####[facility] [address] [place], [address] Monocytes/100 WBC (Bld) 6.1 % Normal 0-10 [facility] Comment on above: Performed By: #### L 500.4050, L100.0100, L700.6800, L501.2450 ####[facility] [address] [place], [address] Neutrophils/100 WBC (Bld) 82.2 % High 47-70 [facility] Comment on above: Performed By: #### L 500.4050, L100.0100, L700.6800, L501.2450 ####[facility] [address] [place], [address] Nucleated RBC (Bld) [#/Vol] 0 10*3/uL Normal 0-5 [facility] Comment on above: Performed By: #### L 500.4050, L100.0100, L700.6800, L501.2450 ####[facility] [address] [place], [address] Platelet mean volume (Bld) [Entitic vol] 12.3 fL High 6.2-12.0 [facility] Comment on above: Performed By: #### L 500.4050, L100.0100, L700.6800, L501.2450 ####[facility] [address] [place], [address] Platelets (Bld) [#/Vol] 166 10*3/uL Normal 150-450 [facility] Comment on above: Performed By: #### L 500.4050, L100.0100, L700.6800, L501.2450 ####[facility] [address] [place], [address] RBC (Bld) [#/Vol] 4.40 10*6/uL Normal 4.2-5.4 [facility] Comment on above: Performed By: #### L 500.4050, L100.0100, L700.6800, L501.2450 ####[facility] [address] [place], [address] RDW SD 42.5 fl Normal 35.1-43.9 [facility] Comment on above: Performed By: #### L 500.4050, L100.0100, L700.6800, L501.2450 ####[facility] [address] [place], [address] WBC (Bld) [#/Vol] 17.1 10*3/uL High 4.4-11.0 [facility] Comment on above: Performed By: #### L 500.4050, L100.0100, L700.6800, L501.2450 ####[facility] [address] [place], [address] Comprehensive Metabolic Prof [facility] 10-18-2024 Albumin [Mass/Vol] 3.7 g/dL Normal 3.2-5.0 [facility] Comment on above: Performed By: #### L 500.4050, L100.0100, L700.6800, L501.2450 ####[facility] [address] [place], [address] Albumin/Globulin [Mass ratio] 1.1 {ratio} Normal 0.9-2.4 [facility] Comment on above: Performed By: #### L 500.4050, L100.0100, L700.6800, L501.2450 ####[facility] [address] [place], [address] ALK P 84 U/L Normal 45-117 [facility] Comment on above: Performed By: #### L 500.4050, L100.0100, L700.6800, L501.2450 ####[facility] [address] [place], [address] ALT [Catalytic activity/Vol] 24 U/L Normal 13-56 [facility] Comment on above: Performed By: #### L 500.4050, L100.0100, L700.6800, L501.2450 ####[facility] [address] [place], [address] AST [Catalytic activity/Vol] 14 U/L Low 15-37 [facility] Comment on above: Performed By: #### L 500.4050, L100.0100, L700.6800, L501.2450 ####[facility] [address] [place], [address] Bilirubin [Mass/Vol] 0.40 mg/dL Normal 0.20-1.00 [facility] Comment on above: Result Comment: For patients on eltrombopag therapy, use of Dimension [place] TBIL is not recommended. Performed By: #### L 500.4050, L100.0100, L700.6800, L501.2450 ####[facility] [address] [place], [address] BUN/CRE 19.7 RATIO Normal 10-20 [facility] Comment on above: Performed By: #### L 500.4050, L100.0100, L700.6800, L501.2450 ####[facility] [address] [place], [address] CA,Total 9.4 mg/dL Normal 8.5-10.1 [facility] Comment on above: Performed By: #### L 500.4050, L100.0100, L700.6800, L501.2450 ####[facility] [address] [place], [address] Chloride [Moles/Vol] 109 mmol/L High 98-107 [facility] Comment on above: Performed By: #### L 500.4050, L100.0100, L700.6800, L501.2450 ####[facility] [address] [place], [address] CO2 [Moles/Vol] 25.0 mmol/L Normal 21.0-32.0 [facility] Comment on above: Performed By: #### L 500.4050, L100.0100, L700.6800, L501.2450 ####[facility] [address] [place], [address] Creatinine [Mass/Vol] 0.76 mg/dL Normal 0.55-1.02 [facility] Comment on above: Result Comment: The validity of the calculated GFR GFRAA in patients over70 years has not been determined. Clinical correlation isessential. Performed By: #### L 500.4050, L100.0100, L700.6800, L501.2450 ####[facility] [address] [place], [address] ECRCL 123.05 ml/min Normal [facility] Comment on above: Performed By: #### L 500.4050, L100.0100, L700.6800, L501.2450 ####[facility] [address] [place], [address] EST GFR - AA 115 mL/min Normal >60 [facility] Comment on above: Result Comment: Afri can Beninese GFR Calc Performed By: #### L 500.4050, L100.0100, L700.6800, L501.2450 ####[facility] [address] [place], [address] GAP 5 Normal 5-15 [facility] Comment on above: Performed By: #### L 500.4050, L100.0100, L700.6800, L501.2450 ####[facility] [address] [place], [address] GFR/1.73 sq M.predicted among non-blacks MDRD (S/P/Bld) [Vol rate/Area] 95 mL/min/{1.73_m2} Normal >60 [facility] Comment on above: Result Comment: Non- GFR Calc Performed By: #### L 500.4050, L100.0100, L700.6800, L501.2450 ####[facility] [address] [place], [address] Globulin (S) [Mass/Vol] 3.4 g/dL Normal 2.2-4.2 [facility] Comment on above: Performed By: #### L 500.4050, L100.0100, L700.6800, L501.2450 ####[facility] [address] [place], [address] Glucose [Mass/Vol] 116 mg/dL High 74-106 [facility] Comment on above: Result Comment: Fast ing Glucose result from 100 to 125 mg/dLsuggests IMPAIRED HOMEOSTASIS per A.D.A. criteria. Performed By: #### L 500.4050, L100.0100, L700.6800, L501.2450 ####[facility] [address] [place], [address] Potassium [Moles/Vol] 4.0 mmol/L Normal 3.5-5.1 [facility] Comment on above: Performed By: #### L 500.4050, L100.0100, L700.6800, L501.2450 ####[facility] [address] [place], [address] Sodium [Moles/Vol] 139 mmol/L Normal 136-145 [facility] Comment on above: Performed By: #### L 500.4050, L100.0100, L700.6800, L501.2450 ####[facility] [address] [place], [address] T PROT 7.1 g/dL Normal 6.4-8.2 [facility] Comment on above: Performed By: #### L 500.4050, L100.0100, L700.6800, L501.2450 ####[facility] [address] [place], [address] Urea nitrogen [Mass/Vol] 15 mg/dL Normal 7-18 [facility] Comment on above: Performed By: #### L 500.4050, L100.0100, L700.6800, L501.2450 ####[facility] [address] [place], [address] Emergency Department Summary on 10-18-2024 Emergency Department Summary Normal [facility] H AND P Exam - Hospitaliston 10-18-2024 H&P Exam - Hospitalist Normal [facility] Lactic Acidon 10-18-2024 Lactate [Moles/Vol] 1.4 mmol/L Normal 0.4-1.9 [facility] Comment on above: Order Comment: Y Performed By: #### L 503.6005, L700.6800 ####[facility] [address] [place], [address] Lipaseon 10-18-2024 Lipase [Catalytic activity/Vol] 18 U/L Low 73-393 [facility] Comment on above: Performed By: #### L 500.4050, L100.0100, L700.6800, L501.2450 ####[facility] [address] [place], [address] M100.678on 10-18-2024 M100.678 SARS-CoV-2 (COVID 19 ) Negative INFLUENZA A Negative INFLUENZA B Negative RSV PCR Negative Normal [facility] Comment on above: Performed By: #### M 100.678 ####[facility] [address] [place], [address] Magnesiumon 10-18-2024 Magnesium [Mass/Vol] 1.8 mg/dL Normal 1.6-2.6 [facility] Comment on above: Order Comment: Comme nts: May add to ED labsComments: may add to ED labs Performed By: #### L 501.5200, L509.7000, L501.2300 ####[facility] [address] [place], [address] Phosphoruson 10-18-2024 Phosphate [Mass/Vol] 3.3 mg/dL Normal 2.5-4.9 [facility] Comment on above: Order Comment: Comme nts: May add to ED labsComments: may add to ED labs Performed By: #### L 501.5200, L509.7000, L501.2300 ####[facility] [address] [place], [address] ,Serum,hCG Quali.on 10-18-2024 HCG, SERUM QUAL Negative Normal [facility] Comment on above: Performed By: #### L 500.4050, L100.0100, L700.6800, L501.2450 ####[facility] [address] [place], [address] HCG, SERUM QUAL Normal [facility] Comment on above: Result Comment: Canc elled via OM: MD Ordered Performed By: #### L 503.6005, L700.6800 ####[facility] [address] [place], [address] INTERNAL QC OK? Normal [facility] Comment on above: Result Comment: Canc elled via OM: MD Ordered Performed By: #### L 503.6005, L700.6800 ####[facility] [address] [place], [address] RECORD KIT LOT# [facility] Comment on above: Result Comment: Canc elled via OM: MD Ordered Performed By: #### L 503.6005, L700.6800 ####[facility] [address] [place], [address] Procalcitoninon 10-18-2024 Procalcitonin 0.07 ng/mL Normal 0.00-0.09 [facility] Comment on above: Result Comment: A [...] are obtained. Performed By: #### L 501.5200, L509.7000, L501.2300 ####[facility] [address] [place], [address] Urinalysis, Completeon 10-18 BACTERIA 1+ /hpf Normal None Seen [facility] Comment on above: Order Comment: CLEAN CATCH Performed By: #### L 400.0001 ####[facility] [address] [place], [address] EPI,SQUAMOUS 0-5 SEEN Normal 5-10 [facility] Comment on above: Order Comment: CLEAN CATCH Performed By: #### L 400.0001 ####[facility] [address] [place], [address] Mucus Ql (Urine sed) 1+ /hpf Normal [facility] Comment on above: Order Comment: CLEAN CATCH Performed By: #### L 400.0001 ####[facility] [address] [place], [address] RBC 5-10 SEEN Normal 0-5 [facility] Comment on above: Order Comment: CLEAN CATCH Performed By: #### L 400.0001 ####[facility] [address] [place], [address] WBC 10-25 SEEN Normal 0-5 [facility] Comment on above: Order Comment: CLEAN CATCH Performed By: #### L 400.0001 ####[facility] [address] [place], [address] Venous Blood Gason 5 Blood Gas Type ISABELLE Normal [facility] Comment on above: Performed By: #### L 9000.0810 ####[facility] [address] [place], [address] CO2 [Moles/Vol] 26 mmol/L Normal 23-33 [facility] Comment on above: Performed By: #### L 9000.0810 ####[facility] [address] [place], [address] HCO3 (Bld) [Moles/Vol] 25 mmol/L Normal 22-26 [facility] Comment on above: Performed By: #### L 9000.0810 ####[facility] [address] [place], [address] O2 Delivery Dev Room Air Normal [facility] Comment on above: Performed By: #### L 9000.0810 ####[facility] [address] [place], [address] SITE Not entered Normal [facility] Comment on above: Performed By: #### L 9000.0810 ####[facility] [address] [place], [address] VBG BE 0 mmol/L Normal -1.0-3.5 [facility] Comment on above: Performed By: #### L 9000.0810 ####[facility] [address] [place], [address] VBG pCO2 41.6 mmHg Normal 41-51 [facility] Comment on above: Performed By: #### L 9000.0810 ####[facility] [address] [place], [address] VBG pH 7.38 Normal 7.32-7.42 [facility] Comment on above: Performed By: #### L 9000.0810 ####[facility] [address] [place], [address] VBG PO2 32 mmHg Normal 25-40 [facility] Comment on above: Performed By: #### L 9000.0810 ####[facility] [address] [place], [address] VBG SO2 59 Normal 50-70 [facility] Comment on above: Performed By: #### L 9000.0810 ####[facility] [address] [place], [address] Dipak 10-02-2024 GIOVANA Telephone (ENDOIN) DAISYKATHLEEN Swain ([id number]) 1995 F CHT Date Time Provider Department 10/02/24 JESSICA GUERRERO During your visit today, we recorded the following information about you: Nichole Quinteros 10/02/2024 9:53 AM Signed Patient has been identified by name and date of : Yes Type of form: [facility] Medical Physician Order for Insulin Pump Therapy and Diabetes Testing Form received via: abstract When form is completed, fax form to fax number provided. Form has been forwarded to: Provider's mailbox. Provider name: FRIEDA Urena Diamond, STIVEN 10/02/2024 2:45 PM Signed Clinical notes and DWO for infusion supplies placed on providers desk to review and advise. To be faxed to [facility] Medical [phone] Jessica Guerrero APRN.CNP 10/02/2024 3:09 PM Signed Form signed. Jessica Guerrero APRN.Estrellita Viera, STIVEN 10/10/2024 11:49 AM Signed Form re-faxed per [facility] request Allergies As of Date: 10/02/2024 Noted [...] Units subcutaneously every 24 hours. - Insulin [place], Disposable, (PEN NEEDLE) 32 gauge x 5/32 [...] (post-traumatic stress disorder) [F43.10] 12/25/2012 DVT prophylaxis [PPQ9853] 12/25/2012 09/04/2013 DISPOSITION AND FOLLOW-UP [V999.01] 12/25/2012 09/04/2013 HTN (hypertension) [I10] Hypertension in , antepartum [O16.9] 09/19/2013 01/08/2014 GBS (group B Streptococcus carrier), +RV cultur*11/11/2013 04/16/2014 [Z34.90] 11/22/2013 04/16/2014 Diabetes mellitus in ([facility]) [O24.919] 12/25/2013 04/16/2014 Diabetic ketoacidosis without coma associated w*01/08/2014 02/04/2023 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 Normal [facility] Basic Metabolic Profile (BMP )on 09-02-2024 BUN/CRE 16.2 RATIO Normal 10-20 [facility] Comment on above: Performed By: #### L 100.0100, L500.2500 ####[facility] [address] [place], [address] CA,Total 9.2 mg/dL Normal 8.5-10.1 [facility] Comment on above: Performed By: #### L 100.0100, L500.2500 ####[facility] [address] [place], [address] Chloride [Moles/Vol] 112 mmol/L High 98-107 [facility] Comment on above: Performed By: #### L 100.0100, L500.2500 ####[facility] [address] [place], [address] CO2 [Moles/Vol] 21.0 mmol/L Normal 21.0-32.0 [facility] Comment on above: Performed By: #### L 100.0100, L500.2500 ####[facility] [address] [place], [address] Creatinine [Mass/Vol] 0.86 mg/dL Normal 0.55-1.02 [facility] Comment on above: Result Comment: The validity of the calculated GFR GFRAA in patients over70 years has not been determined. Clinical correlation isessential. Performed By: #### L 100.0100, L500.2500 ####[facility] [address] [place], [address] ECRCL 99.96 ml/min Normal [facility] Comment on above: Performed By: #### L 100.0100, L500.2500 ####[facility] [address] [place], [address] EST GFR - AA 99 mL/min Normal >60 [facility] Comment on above: Result Comment: Afri can Beninese GFR Calc Performed By: #### L 100.0100, L500.2500 ####[facility] [address] [place], [address] GAP 10 Normal 5-15 [facility] Comment on above: Performed By: #### L 100.0100, L500.2500 ####[facility] [address] [place], [address] GFR/1.73 sq M.predicted among non-blacks MDRD (S/P/Bld) [Vol rate/Area] 82 mL/min/{1.73_m2} Normal >60 [facility] Comment on above: Result Comment: Non- GFR Calc Performed By: #### L 100.0100, L500.2500 ####[facility] [address] [place], [address] Glucose [Mass/Vol] 129 mg/dL High 74-106 [facility] Comment on above: Result Comment: Fast ing Glucose result greater than or equal to 126 mg/dLsuggests DIABETES MELLITUS per A.D.A. criteria. Performed By: #### L 100.0100, L500.2500 ####[facility] [address] [place], [address] Potassium [Moles/Vol] 3.0 mmol/L Low 3.5-5.1 [facility] Comment on above: Performed By: #### L 100.0100, L500.2500 ####[facility] [address] [place], [address] Sodium [Moles/Vol] 142 mmol/L Normal 136-145 [facility] Comment on above: Performed By: #### L 100.0100, L500.2500 ####[facility] [address] [place], [address] Urea nitrogen [Mass/Vol] 14 mg/dL Normal 7-18 [facility] Comment on above: Performed By: #### L 100.0100, L500.2500 ####[facility] [address] [place], [address] CBC W/Diff, Automatedon 01-0 6-2025 Absolute Lymph 2.60 X10 3/uL Normal 0.83-4.51 [facility] Comment on above: Performed By: #### L 100.0100, L500.2500 ####[facility] [address] [place], [address] Absolute Neut 12.8 X10 3/uL High 2.0-7.7 [facility] Comment on above: Performed By: #### L 100.0100, L500.2500 ####[facility] [address] [place], [address] Basophils/100 WBC (Bld) 0.5 % Normal 0-1 [facility] Comment on above: Performed By: #### L 100.0100, L500.2500 ####[facility] [address] [place], [address] Eosinophils/100 WBC (Bld) 0.4 % Normal 0-5 [facility] Comment on above: Performed By: #### L 100.0100, L500.2500 ####[facility] [address] [place], [address] Erythrocyte distribution width (RBC) [Ratio] 12.6 % Normal 11.6-14.6 [facility] Comment on above: Performed By: #### L 100.0100, L500.2500 ####[facility] [address] [place], [address] Hematocrit (Bld) [Volume fraction] 42.7 % Normal 37-47 [facility] Comment on above: Performed By: #### L 100.0100, L500.2500 ####[facility] [address] [place], [address] Hemoglobin (Bld) [Mass/Vol] 14.1 g/dL Normal 12.0-15.0 [facility] Comment on above: Performed By: #### L 100.0100, L500.2500 ####[facility] [address] [place], [address] IG% 1.000 High 0.0-0.9 [facility] Comment on above: Result Comment: IG% - Immature Granulocytes (promyelocytes, myelocytes andmetamyelocytes) > 1% indicates that a LEFT SHIFT is Present. Performed By: #### L 100.0100, L500.2500 ####[facility] [address] [place], [address] Lymphocytes/100 WBC (Bld) 15.8 % Low 19-41 [facility] Comment on above: Performed By: #### L 100.0100, L500.2500 ####[facility] [address] [place], [address] MCH (RBC) [Entitic mass] 28.9 pg Normal 27.0-32.0 [facility] Comment on above: Performed By: #### L 100.0100, L500.2500 ####[facility] [address] [place], [address] MCHC (RBC) [Mass/Vol] 33.0 g/dL Normal 32-36 [facility] Comment on above: Performed By: #### L 100.0100, L500.2500 ####[facility] [address] [place], [address] MCV (RBC) [Entitic vol] 87.5 fL Normal 81-99 [facility] Comment on above: Performed By: #### L 100.0100, L500.2500 ####[facility] [address] [place], [address] Monocytes/100 WBC (Bld) 4.6 % Normal 0-10 [facility] Comment on above: Performed By: #### L 100.0100, L500.2500 ####[facility] [address] [place], [address] Neutrophils/100 WBC (Bld) 77.7 % High 47-70 [facility] Comment on above: Performed By: #### L 100.0100, L500.2500 ####[facility] [address] [place], [address] Nucleated RBC (Bld) [#/Vol] 0 10*3/uL Normal 0-5 [facility] Comment on above: Performed By: #### L 100.0100, L500.2500 ####[facility] [address] [place], [address] Platelet mean volume (Bld) [Entitic vol] 12.5 fL High 6.2-12.0 [facility] Comment on above: Performed By: #### L 100.0100, L500.2500 ####[facility] [address] [place], [address] Platelets (Bld) [#/Vol] 199 10*3/uL Normal 150-450 [facility] Comment on above: Performed By: #### L 100.0100, L500.2500 ####[facility] [address] [place], [address] RBC (Bld) [#/Vol] 4.88 10*6/uL Normal 4.2-5.4 [facility] Comment on above: Performed By: #### L 100.0100, L500.2500 ####[facility] [address] [place], [address] RDW SD 40.3 fl Normal 35.1-43.9 [facility] Comment on above: Performed By: #### L 100.0100, L500.2500 ####[facility] [address] [place], [address] WBC (Bld) [#/Vol] 16.5 10*3/uL High 4.4-11.0 [facility] Comment on above: Performed By: #### L 100.0100, L500.2500 ####[facility] [address] [place], [address] Emergency Department Summary on 09-02-2024 Emergency Department Summary Normal [facility] Urinalysis, Completeon 09-02 BACTERIA 2+ /hpf Normal None Seen [facility] Comment on above: Order Comment: CLEAN CATCH Performed By: #### L 400.0001 ####[facility] [address] [place], [address] EPI,SQUAMOUS 0-5 SEEN Normal 5-10 [facility] Comment on above: Order Comment: CLEAN CATCH Performed By: #### L 400.0001 ####[facility] [address] [place], [address] Mucus Ql (Urine sed) RARE Normal [facility] Comment on above: Order Comment: CLEAN CATCH Performed By: #### L 400.0001 ####[facility] [address] [place], [address] WBC 0-5 SEEN Normal 0-5 [facility] Comment on above: Order Comment: CLEAN CATCH Performed By: #### L 400.0001 ####[facility] [address] [place], [address] RBC 0 SEEN Normal 0-5 [facility] Comment on above: Order Comment: CLEAN CATCH Performed By: #### L 400.0001 ####[facility] [address] [place], [address] 36on 08-07-2024 36 Medication: Skyrizi 150mg/ml Dosing Schedule: 150mg every 12 weeks Prior Authorization: Submitted date: 08.07.2024 [place] reference #: [id number] Approval dates: 08.07.2024-08.27.2024 [facility] [phone] [facility] Urine Cultureon 08-04-2024 [facility] Mixed Gram Positive Organisms [place] Count 11,000-25,000 MIX[facility] Mixed contaminants. Submit a new specimen if indicated. Normal [facility] Comment on above: Performed By: #### M 100.2200 ####[facility] [address] [place], [address] Basic Metabolic Profile (BMP )on 08-03-2024 BUN/CRE 9.9 RATIO Low 10-20 [facility] Comment on above: Order Comment: Call MD with results STAT Performed By: #### L 501.2300, L500.2500, L501.9520 ####[facility] [address] [place], [address] CA,Total 7.9 mg/dL Low 8.5-10.1 [facility] Comment on above: Order Comment: Call MD with results STAT Performed By: #### L 501.2300, L500.2500, L501.9520 ####[facility] [address] [place], [address] Chloride [Moles/Vol] 114 mmol/L High 98-107 [facility] Comment on above: Order Comment: Call MD with results STAT Performed By: #### L 501.2300, L500.2500, L501.9520 ####[facility] [address] [place], [address] CO2 [Moles/Vol] 22.0 mmol/L Normal 21.0-32.0 [facility] Comment on above: Order Comment: Call MD with results STAT Performed By: #### L 501.2300, L500.2500, L501.9520 ####[facility] [address] [place], [address] Creatinine [Mass/Vol] 0.61 mg/dL Normal 0.55-1.02 [facility] Comment on above: Order Comment: Call MD with results STAT Result Comment: The validity of the calculated GFR GFRAA in patients over70 years has not been determined. Clinical correlation isessential. Performed By: #### L 501.2300, L500.2500, L501.9520 ####[facility] [address] [place], [address] ECRCL 140.93 ml/min Normal [facility] Comment on above: Order Comment: Call MD with results STAT Performed By: #### L 501.2300, L500.2500, L501.9520 ####[facility] [address] [place], [address] EST GFR - AA 149 mL/min Normal >60 [facility] Comment on above: Order Comment: Call MD with results STAT Result Comment: Afri can Beninese GFR Calc Performed By: #### L 501.2300, L500.2500, L501.9520 ####[facility] [address] [place], [address] GAP 5 Normal 5-15 [facility] Comment on above: Order Comment: Call MD with results STAT Performed By: #### L 501.2300, L500.2500, L501.9520 ####[facility] [address] [place], [address] GFR/1.73 sq M.predicted among non-blacks MDRD (S/P/Bld) [Vol rate/Area] 123 mL/min/{1.73_m2} Normal >60 [facility] Comment on above: Order Comment: Call MD with results STAT Result Comment: Non- GFR Calc Performed By: #### L 501.2300, L500.2500, L501.9520 ####[facility] [address] [place], [address] Glucose [Mass/Vol] 193 mg/dL High 74-106 [facility] Comment on above: Order Comment: Call MD with results STAT Result Comment: Fast ing Glucose result greater than or equal to 126 mg/dLsuggests DIABETES MELLITUS per A.D.A. criteria. Performed By: #### L 501.2300, L500.2500, L501.9520 ####[facility] [address] [place], [address] Potassium [Moles/Vol] 4.5 mmol/L Normal 3.5-5.1 [facility] Comment on above: Order Comment: Call MD with results STAT Result Comment: Slig ht Hemolysis, Result may be falsely increased. Performed By: #### L 501.2300, L500.2500, L501.9520 ####[facility] [address] [place], [address] Sodium [Moles/Vol] 140 mmol/L Normal 136-145 [facility] Comment on above: Order Comment: Call with results STAT Performed By: #### L 501.2300, L500.2500, L501.9520 ####[facility] [address] [place], [address] Urea nitrogen [Mass/Vol] 6 mg/dL Low 7-18 [facility] Comment on above: Order Comment: Call with results STAT Performed By: #### L 501.2300, L500.2500, L501.9520 ####[facility] [address] [place], [address] BUN Normal 7-18 [facility] Comment on above: Order Comment: Call with results STAT Result Comment: @NOT NEEDED BY [place]ISON BREAKFAST AND ROOM ATTENDANT Performed By: #### L 500.2500 ####[facility] [address] [place], [address] BUN/CRE Normal 10-20 [facility] Comment on above: Order Comment: Call with results STAT Result Comment: @NOT NEEDED BY [place] BREAKFAST AND ROOM ATTENDANT Performed By: #### L 500.2500 ####[facility] [address] [place], [address] CA,Total Normal 8.5-10.1 [facility] Comment on above: Order Comment: Call MD with results STAT Result Comment: @NOT NEEDED BY TMPETRONAR2 BREAKFAST AND ROOM ATTENDANT Performed By: #### L 500.2500 ####[facility] [address] [place] [id number] CL Normal 98-107 [facility] Comment on above: Order Comment: Call MD with results STAT Result Comment: @NOT NEEDED BY TMPETRONAR2 BREAKFAST AND ROOM ATTENDANT Performed By: #### L 500.2500 ####[facility] [address] [place] [id number] CO2 Normal 21.0-32.0 [facility] Comment on above: Order Comment: Call MD with results STAT Result Comment: @NOT NEEDED BY TMPETRONAR2 BREAKFAST AND ROOM ATTENDANT Performed By: #### L 500.2500 ####[facility] [address] [place] [id number] CREAT,SERUM Normal 0.55-1.02 [facility] Comment on above: Order Comment: Call MD with results STAT Result Comment: @NOT NEEDED BY TMPETRONAR2 BREAKFAST AND ROOM ATTENDANT Performed By: #### L 500.2500 ####[facility] [address] [place] [id number] EST GFR Normal >60 [facility] Comment on above: Order Comment: Call MD with results STAT Result Comment: @NOT NEEDED BY ROLANR2 BREAKFAST AND ROOM ATTENDANT Performed By: #### L 500.2500 ####[facility] [address] [place] [id number] EST GFR - AA Normal >60 [facility] Comment on above: Order Comment: Call MD with results STAT Result Comment: @NOT NEEDED BY TMPETRONAR2 BREAKFAST AND ROOM ATTENDANT Performed By: #### L 500.2500 ####[facility] [address] [place], [address] GAP Normal 5-15 [facility] Comment on above: Order Comment: Call MD with results STAT Result Comment: @NOT NEEDED BY ROLANR2 BREAKFAST AND ROOM ATTENDANT Performed By: #### L 500.2500 ####[facility] [address] [place], [address] GLU Normal 74-106 [facility] Comment on above: Order Comment: Call MD with results STAT Result Comment: @NOT NEEDED BY TMPETRONAR2 BREAKFAST AND ROOM ATTENDANT Performed By: #### L 500.2500 ####[facility] [address] [place], [address] Potassium Normal 3.5-5.1 [facility] Comment on above: Order Comment: Call MD with results STAT Result Comment: @NOT NEEDED BY ROLANR2 BREAKFAST AND ROOM ATTENDANT Performed By: #### L 500.2500 ####[facility] [address] [place], [address] Basic Metabolic Profile (BMP) Normal 136-145 [facility] Comment on above: Order Comment: Call MD with results STAT Result Comment: @NOT NEEDED BY ROLANR2 BREAKFAST AND ROOM ATTENDANT Performed By: #### L 500.2500 ####[facility] [address] [place], [address] Bedside Glucoseon 08-03-2024 FINGERSTICK GLU 212 mg/dL High 74-106 [facility] Comment on above: Result Comment: EDGAR GEMENT OF PATIENT CARE PER NURSING PROTOCOL Performed By: #### L 501.080 ####[facility] [address] [place], [address] FINGERSTICK GLU 256 mg/dL High 74-106 [facility] Comment on above: Result Comment: EDGAR GEMENT OF PATIENT CARE PER NURSING PROTOCOL Performed By: #### L 501.080 ####[facility] [address] [place], [address] FINGERSTICK GLU 153 mg/dL High 74-106 [facility] Comment on above: Result Comment: EDGAR HUNG OF PATIENT CARE PER NURSING PROTOCOL Performed By: #### L 501.080 ####[facility] [address] [place], [address] Discharge Instructionon 12-0 Discharge Instruction Normal [facility] Phosphoruson 08-03-2024 Phosphate [Mass/Vol] 1.8 mg/dL Low 2.5-4.9 [facility] Comment on above: Order Comment: Call MD with results STAT Performed By: #### L 501.2300, L500.2500, L501.9520 ####[facility] [address] [place], [address] Thyroid Stim Hormone (TSH)on 08-03-2024 TSH 2.360 uIU/mL Normal 0.358-3.740 [facility] Comment on above: Order Comment: Call MD with results STAT Performed By: #### L 501.2300, L500.2500, L501.9520 ####[facility] [address] [place], [address] Acetone Serumon 08-02-2024 ACETONE SERUM Negative Normal NEG [facility] Comment on above: Performed By: #### L 501.6900 ####[facility] [address] [place], [address] ACETONE SERUM SMALL Abnormal NEG [facility] Comment on above: Result Comment: RESU LTS CALLED TO [facility] 08/02/24 0107 Jhoana Martínez.REPORT READ BACK BY SAME. Performed By: #### L 503.6005, L100.0100, L501.6900, L500.3400, L501.5200, L501.2450, L500.2500, L700.6800 ####[facility] [address] [place], [address] Basic Metabolic Profile (BMP )on 08-02-2024 BUN Normal 7-18 [facility] Comment on above: Order Comment: Call MD with results STAT Result Comment: @NOT NEEDED BY PETRONAR2 BREAKFAST AND ROOM ATTENDANT Performed By: #### L 500.2500 ####[facility] [address] [place], [address] BUN/CRE Normal 10-20 [facility] Comment on above: Order Comment: Call MD with results STAT Result Comment: @NOT NEEDED BY PETRONAR2 BREAKFAST AND ROOM ATTENDANT Performed By: #### L 500.2500 ####[facility] [address] [place], [address] CA,Total Normal 8.5-10.1 [facility] Comment on above: Order Comment: Call MD with results STAT Result Comment: @NOT NEEDED BY PETRONAR2 BREAKFAST AND ROOM ATTENDANT Performed By: #### L 500.2500 ####[facility] [address] [place], [address] CL Normal 98-107 [facility] Comment on above: Order Comment: Call MD with results STAT Result Comment: @NOT NEEDED BY PETRONAR2 BREAKFAST AND ROOM ATTENDANT Performed By: #### L 500.2500 ####[facility] [address] [place], [address] CO2 Normal 21.0-32.0 [facility] Comment on above: Order Comment: Call MD with results STAT Result Comment: @NOT NEEDED BY [facility] ROOM ATTENDANT Performed By: #### L 500.2500 ####[facility] [address] [place], [address] CREAT,SERUM Normal 0.55-1.02 [facility] Comment on above: Order Comment: Call MD with results STAT Result Comment: @NOT NEEDED BY TMPETRONAR2 BREAKFAST AND ROOM ATTENDANT Performed By: #### L 500.2500 ####[facility] [address] [place], [address] EST GFR Normal >60 [facility] Comment on above: Order Comment: Call MD with results STAT Result Comment: @NOT NEEDED BY TMPETRONAR2 BREAKFAST AND ROOM ATTENDANT Performed By: #### L 500.2500 ####[facility] [address] [place], [address] EST GFR - AA Normal >60 [facility] Comment on above: Order Comment: Call MD with results STAT Result Comment: @NOT NEEDED BY TMPETRONAR2 BREAKFAST AND ROOM ATTENDANT Performed By: #### L 500.2500 ####[facility] [address] [place], [address] GAP Normal 5-15 [facility] Comment on above: Order Comment: Call MD with results STAT Result Comment: @NOT NEEDED BY TMPETRONAR2 BREAKFAST AND ROOM ATTENDANT Performed By: #### L 500.2500 ####[facility] [address] [place], [address] GLU Normal 74-106 [facility] Comment on above: Order Comment: Call MD with results STAT Result Comment: @NOT NEEDED BY TMPETRONAR2 BREAKFAST AND ROOM ATTENDANT Performed By: #### L 500.2500 ####[facility] [address] [place], [address] Potassium Normal 3.5-5.1 [facility] Comment on above: Order Comment: Call MD with results STAT Result Comment: @NOT NEEDED BY TMPETRONAR2 BREAKFAST AND ROOM ATTENDANT Performed By: #### L 500.2500 ####[facility] [address] [place], [address] Basic Metabolic Profile (BMP) Normal 136-145 [facility] Comment on above: Order Comment: Call MD with results STAT Result Comment: @NOT NEEDED BY TMPETRONAR2 BREAKFAST AND ROOM ATTENDANT Performed By: #### L 500.2500 ####[facility] [address] [place], [address] BUN Normal 7-18 [facility] Comment on above: Order Comment: Call MD with results STAT Result Comment: @NOT NEEDED BY TMPETRONAR2 BREAKFAST AND ROOM ATTENDANT Performed By: #### L 500.2500 ####[facility] [address] [place], [address] BUN/CRE Normal 10-20 [facility] Comment on above: Order Comment: Call MD with results STAT Result Comment: @NOT NEEDED BY ROLANR2 BREAKFAST AND ROOM ATTENDANT Performed By: #### L 500.2500 ####[facility] [address] [place], [address] CA,Total Normal 8.5-10.1 [facility] Comment on above: Order Comment: Call MD with results STAT Result Comment: @NOT NEEDED BY ROLANR2 BREAKFAST AND ROOM ATTENDANT Performed By: #### L 500.2500 ####[facility] [address] [place], [address] CL Normal 98-107 [facility] Comment on above: Order Comment: Call MD with results STAT Result Comment: @NOT NEEDED BY PETRONAR2 BREAKFAST AND ROOM ATTENDANT Performed By: #### L 500.2500 ####[facility] [address] [place], [address] CO2 Normal 21.0-32.0 [facility] Comment on above: Order Comment: Call MD with results STAT Result Comment: @NOT NEEDED BY ROLANR2 BREAKFAST AND ROOM ATTENDANT Performed By: #### L 500.2500 ####[facility] [address] [place], [address] CREAT,SERUM Normal 0.55-1.02 [facility] Comment on above: Order Comment: Call with results STAT Result Comment: @NOT NEEDED BY ROLNAR2 BREAKFAST AND ROOM ATTENDANT Performed By: #### L 500.2500 ####[facility] [address] [place], [address] EST GFR Normal >60 [facility] Comment on above: Order Comment: Call with results STAT Result Comment: @NOT NEEDED BY ROLANR2 BREAKFAST AND ROOM ATTENDANT Performed By: #### L 500.2500 ####[facility] [address] [place], [address] EST GFR - AA Normal >60 [facility] Comment on above: Order Comment: Call MD with results STAT Result Comment: @NOT NEEDED BY PETRONAR2 BREAKFAST AND ROOM ATTENDANT Performed By: #### L 500.2500 ####[facility] [address] [place], [address] GAP Normal 5-15 [facility] Comment on above: Order Comment: Call MD with results STAT Result Comment: @NOT NEEDED BY [facility] BREAKFAST AND ROOM ATTENDANT Performed By: #### L 500.2500 ####[facility] [address] [place], [address] GLU Normal 74-106 [facility] Comment on above: Order Comment: Call MD with results STAT Result Comment: @NOT NEEDED BY TMPETRONAR2 BREAKFAST AND ROOM ATTENDANT Performed By: #### L 500.2500 ####[facility] [address] [place], [address] Potassium Normal 3.5-5.1 [facility] Comment on above: Order Comment: Call MD with results STAT Result Comment: @NOT NEEDED BY PETRONAR2 BREAKFAST AND ROOM ATTENDANT Performed By: #### L 500.2500 ####[facility] [address] [place], [address] Basic Metabolic Profile (BMP) Normal 136-145 [facility] Comment on above: Order Comment: Call MD with results STAT Result Comment: @NOT NEEDED BY [facility] BREAKFAST AND ROOM ATTENDANT Performed By: #### L 500.2500 ####[facility] [address] [place], [address] BUN/CRE 11.7 RATIO Normal 10-20 [facility] Comment on above: Order Comment: Call MD with results STAT Performed By: #### L 500.2500 ####[facility] [address] [place], [address] CA,Total 7.7 mg/dL Low 8.5-10.1 [facility] Comment on above: Order Comment: Call MD with results STAT Performed By: #### L 500.2500 ####[facility] [address] [place], [address] Chloride [Moles/Vol] 116 mmol/L High 98-107 [facility] Comment on above: Order Comment: Call MD with results STAT Performed By: #### L 500.2500 ####[facility] [address] [place], [address] CO2 [Moles/Vol] 21.0 mmol/L Normal 21.0-32.0 [facility] Comment on above: Order Comment: Call MD with results STAT Performed By: #### L 500.2500 ####[facility] [address] [place], [address] Creatinine [Mass/Vol] 0.68 mg/dL Normal 0.55-1.02 [facility] Comment on above: Order Comment: Call MD with results STAT Result Comment: The validity of the calculated GFR GFRAA in patients over70 years has not been determined. Clinical correlation isessential. Performed By: #### L 500.2500 ####[facility] [address] [place], [address] ECRCL 126.42 ml/min Normal [facility] Comment on above: Order Comment: Call MD with results STAT Performed By: #### L 500.2500 ####[facility] [address] [place], [address] EST GFR - AA 130 mL/min Normal >60 [facility] Comment on above: Order Comment: Call MD with results STAT Result Comment: Afri can Beninese GFR Calc Performed By: #### L 500.2500 ####[facility] [address] [place], [address] GAP 5 Normal 5-15 [facility] Comment on above: Order Comment: Call MD with results STAT Performed By: #### L 500.2500 ####[facility] [address] [place], [address] GFR/1.73 sq M.predicted among non-blacks MDRD (S/P/Bld) [Vol rate/Area] 107 mL/min/{1.73_m2} Normal >60 [facility] Comment on above: Order Comment: Call MD with results STAT Result Comment: Non- GFR Calc Performed By: #### L 500.2500 ####[facility] [address] [place], [address] Glucose [Mass/Vol] 116 mg/dL High 74-106 [facility] Comment on above: Order Comment: Call MD with results STAT Result Comment: Fast ing Glucose result from 100 to 125 mg/dLsuggests IMPAIRED HOMEOSTASIS per A.D.A. criteria. Performed By: #### L 500.2500 ####[facility] [address] [place], [address] Potassium [Moles/Vol] 3.8 mmol/L Normal 3.5-5.1 [facility] Comment on above: Order Comment: Call MD with results STAT Performed By: #### L 500.2500 ####[facility] [address] [place], [address] Sodium [Moles/Vol] 141 mmol/L Normal 136-145 [facility] Comment on above: Order Comment: Call MD with results STAT Performed By: #### L 500.2500 ####[facility] [address] [place], [address] Urea nitrogen [Mass/Vol] 8 mg/dL Normal 7-18 [facility] Comment on above: Order Comment: Call MD with results STAT Performed By: #### L 500.2500 ####[facility] [address] [place], [address] BUN Normal 7-18 [facility] Comment on above: Order Comment: Call MD with results STAT Result Comment: NO S PECIMEN DRAWN Performed By: #### L 500.2500 ####[facility] [address] [place], [address] BUN/CRE Normal 10-20 [facility] Comment on above: Order Comment: Call MD with results STAT Result Comment: NO S PECIMEN DRAWN Performed By: #### L 500.2500 ####[facility] [address] [place], [address] CA,Total Normal 8.5-10.1 [facility] Comment on above: Order Comment: Call MD with results STAT Result Comment: NO S PECIMEN DRAWN Performed By: #### L 500.2500 ####[facility] [address] [place], [address] CL Normal 98-107 [facility] Comment on above: Order Comment: Call MD with results STAT Result Comment: NO S PECIMEN DRAWN Performed By: #### L 500.2500 ####[facility] [address] [place], [address] CO2 Normal 21.0-32.0 [facility] Comment on above: Order Comment: Call MD with results STAT Result Comment: NO S PECIMEN DRAWN Performed By: #### L 500.2500 ####[facility] [address] [place], [address] CREAT,SERUM Normal 0.55-1.02 [facility] Comment on above: Order Comment: Call MD with results STAT Result Comment: NO S PECIMEN DRAWN Performed By: #### L 500.2500 ####[facility] [address] [place], [address] EST GFR Normal >60 [facility] Comment on above: Order Comment: Call MD with results STAT Result Comment: NO S PECIMEN DRAWN Performed By: #### L 500.2500 ####[facility] [address] [place], [address] EST GFR - AA Normal >60 [facility] Comment on above: Order Comment: Call MD with results STAT Result Comment: NO S PECIMEN DRAWN Performed By: #### L 500.2500 ####[facility] [address] [place], [address] GAP Normal 5-15 [facility] Comment on above: Order Comment: Call MD with results STAT Result Comment: NO S PECIMEN DRAWN Performed By: #### L 500.2500 ####[facility] [address] [place], [address] GLU Normal 74-106 [facility] Comment on above: Order Comment: Call MD with results STAT Result Comment: NO S PECIMEN DRAWN Performed By: #### L 500.2500 ####[facility] [address] [place], [address] Potassium Normal 3.5-5.1 [facility] Comment on above: Order Comment: Call MD with results STAT Result Comment: NO S PECIMEN DRAWN Performed By: #### L 500.2500 ####[facility] [address] [place], [address] Basic Metabolic Profile (BMP) Normal 136-145 [facility] Comment on above: Order Comment: Call MD with results STAT Result Comment: NO S PECIMEN DRAWN Performed By: #### L 500.2500 ####[facility] [address] [place], [address] BUN Normal 7-18 [facility] Comment on above: Order Comment: Call MD with results STAT Result Comment: NO S PECIMEN DRAWN Performed By: #### L 500.2500, L501.9985 ####[facility] [address] [place], [address] BUN/CRE Normal 10-20 [facility] Comment on above: Order Comment: Call MD with results STAT Result Comment: NO S PECIMEN DRAWN Performed By: #### L 500.2500, L501.9985 ####[facility] [address] [place], [address] CA,Total Normal 8.5-10.1 [facility] Comment on above: Order Comment: Call MD with results STAT Result Comment: NO S PECIMEN DRAWN Performed By: #### L 500.2500, L501.9985 ####[facility] [address] [place], [address] CL Normal 98-107 [facility] Comment on above: Order Comment: Call MD with results STAT Result Comment: NO S PECIMEN DRAWN Performed By: #### L 500.2500, L501.9985 ####[facility] [address] [place], [address] CO2 Normal 21.0-32.0 [facility] Comment on above: Order Comment: Call MD with results STAT Result Comment: NO S PECIMEN DRAWN Performed By: #### L 500.2500, L501.9985 ####[facility] [address] [place], [address] CREAT,SERUM Normal 0.55-1.02 [facility] Comment on above: Order Comment: Call MD with results STAT Result Comment: NO S PECIMEN DRAWN Performed By: #### L 500.2500, L501.9985 ####[facility] [address] [place], [address] EST GFR Normal >60 [facility] Comment on above: Order Comment: Call MD with results STAT Result Comment: NO S PECIMEN DRAWN Performed By: #### L 500.2500, L501.85 ####[facility] [address] [place], [address] EST GFR - AA Normal >60 [facility] Comment on above: Order Comment: Call MD with results STAT Result Comment: NO S PECIMEN DRAWN Performed By: #### L 500.2500, L501.9985 ####[facility] [address] [place], [address] GAP Normal 5-15 [facility] Comment on above: Order Comment: Call MD with results STAT Result Comment: NO S PECIMEN DRAWN Performed By: #### L 500.2500, L501.9985 ####[facility] [address] [place], [address] GLU Normal 74-106 [facility] Comment on above: Order Comment: Call MD with results STAT Result Comment: NO S PECIMEN DRAWN Performed By: #### L 500.2500, L501.9985 ####[facility] [address] [place], [address] Potassium Normal 3.5-5.1 [facility] Comment on above: Order Comment: Call MD with results STAT Result Comment: NO S PECIMEN DRAWN Performed By: #### L 500.2500, L501.9985 ####[facility] [address] [place], [address] Basic Metabolic Profile (BMP) Normal 136-145 [facility] Comment on above: Order Comment: Call MD with results STAT Result Comment: NO S PECIMEN DRAWN Performed By: #### L 500.2500, L501.9985 ####[facility] [address] [place], [address] BUN/CRE 16.6 RATIO Normal 10-20 [facility] Comment on above: Performed By: #### L 503.6005, L100.0100, L501.6900, L500.3400, L501.5200, L501.2450, L500.2500, L700.6800 ####[facility] [address] [place], [address] CA,Total 8.9 mg/dL Normal 8.5-10.1 [facility] Comment on above: Performed By: #### L 503.6005, L100.0100, L501.6900, L500.3400, L501.5200, L501.2450, L500.2500, L700.6800 ####[facility] [address] [place], [address] Chloride [Moles/Vol] 107 mmol/L Normal 98-107 [facility] Comment on above: Performed By: #### L 503.6005, L100.0100, L501.6900, L500.3400, L501.5200, L501.2450, L500.2500, L700.6800 ####[facility] [address] [place], [place], [id number]) CO2 [Moles/Vol] 17.0 mmol/L Low 21.0-32.0 [facility] Comment on above: Performed By: #### L 503.6005, L100.0100, L501.6900, L500.3400, L501.5200, L501.2450, L500.2500, L700.6800 ####[facility] [address] [place], [address] Creatinine [Mass/Vol] 0.84 mg/dL Normal 0.55-1.02 [facility] Comment on above: Result Comment: The validity of the calculated GFR GFRAA in patients over70 years has not been determined. Clinical correlation isessential. Performed By: #### L 503.6005, L100.0100, L501.6900, L500.3400, L501.5200, L501.2450, L500.2500, L700.6800 ####[facility] [address] [place], [place], [id number]) ECRCL 102.34 ml/min Normal [facility] Comment on above: Performed By: #### L 503.6005, L100.0100, L501.6900, L500.3400, L501.5200, L501.2450, L500.2500, L700.6800 ####[facility] [address] [place], [address] EST GFR - AA 102 mL/min Normal >60 [facility] Comment on above: Result Comment: Afri can Beninese GFR Calc Performed By: #### L 503.6005, L100.0100, L501.6900, L500.3400, L501.5200, L501.2450, L500.2500, L700.6800 ####[facility] [address] [place], [place], [id number] GAP 14 Normal 5-15 [facility] Comment on above: Performed By: #### L 503.6005, L100.0100, L501.6900, L500.3400, L501.5200, L501.2450, L500.2500, L700.6800 ####[facility] [address] [place], [address] GFR/1.73 sq M.predicted among non-blacks MDRD (S/P/Bld) [Vol rate/Area] 84 mL/min/{1.73_m2} Normal >60 [facility] Comment on above: Result Comment: Non- GFR Calc Performed By: #### L 503.6005, L100.0100, L501.6900, L500.3400, L501.5200, L501.2450, L500.2500, L700.6800 ####[facility] [address] [place], [place], [id number] Glucose [Mass/Vol] 253 mg/dL High 74-106 [facility] Comment on above: Result Comment: Gluc ose result greater than or equal to 200 mg/dLsuggests DIABETES MELLITUS per A.D.A. criteria. Performed By: #### L 503.6005, L100.0100, L501.6900, L500.3400, L501.5200, L501.2450, L500.2500, L700.6800 ####[facility] [address] [place], [place], [id number] Potassium [Moles/Vol] 3.4 mmol/L Low 3.5-5.1 [facility] Comment on above: Performed By: #### L 503.6005, L100.0100, L501.6900, L500.3400, L501.5200, L501.2450, L500.2500, L700.6800 ####[facility] [address] [place], [address] Sodium [Moles/Vol] 139 mmol/L Normal 136-145 [facility] Comment on above: Performed By: #### L 503.6005, L100.0100, L501.6900, L500.3400, L501.5200, L501.2450, L500.2500, L700.6800 ####[facility] [address] [place], [address] Urea nitrogen [Mass/Vol] 14 mg/dL Normal 7-18 [facility] Comment on above: Performed By: #### L 503.6005, L100.0100, L501.6900, L500.3400, L501.5200, L501.2450, L500.2500, L700.6800 ####[facility] [address] [place], [address] Bedside Glucoseon 08-02-2024 FINGERSTICK GLU 246 mg/dL High 74-106 [facility] Comment on above: Result Comment: EDGAR GEMENT OF PATIENT CARE PER NURSING PROTOCOL Performed By: #### L 501.080 ####[facility] [address] [place], [address] FINGERSTICK GLU 77 mg/dL Normal 74-106 [facility] Comment on above: Result Comment: EDGAR GEMENT OF PATIENT CARE PER NURSING PROTOCOL Performed By: #### L 501.080 ####[facility] [address] [place], [address] FINGERSTICK GLU 90 mg/dL Normal 74-106 [facility] Comment on above: Result Comment: EDGAR GEMENT OF PATIENT CARE PER NURSING PROTOCOL Performed By: #### L 501.080 ####[facility] [address] [place], [address] FINGERSTICK GLU 163 mg/dL High 74-106 [facility] Comment on above: Result Comment: EDGAR GEMENT OF PATIENT CARE PER NURSING PROTOCOL Performed By: #### L 501.080 ####[facility] [address] [place], [address] FINGERSTICK GLU 102 mg/dL Normal 74-106 [facility] Comment on above: Result Comment: EDGAR GEMENT OF PATIENT CARE PER NURSING PROTOCOL Performed By: #### L 501.080 ####[facility] [address] [place], [address] FINGERSTICK GLU 147 mg/dL High 74-106 [facility] Comment on above: Result Comment: EDGAR GEMENT OF PATIENT CARE PER NURSING PROTOCOL Performed By: #### L 501.080 ####[facility] [address] [place], [address] FINGERSTICK GLU 83 mg/dL Normal 74-106 [facility] Comment on above: Result Comment: EDGAR GEMENT OF PATIENT CARE PER NURSING PROTOCOL Performed By: #### L 501.080 ####[facility] [address] [place], [address] FINGERSTICK GLU 121 mg/dL High 74-106 [facility] Comment on above: Result Comment: EDGAR GEMENT OF PATIENT CARE PER NURSING PROTOCOL Performed By: #### L 501.080 ####[facility] [address] [place], [address] FINGERSTICK GLU 95 mg/dL Normal 74-106 [facility] Comment on above: Result Comment: EDGAR GEMENT OF PATIENT CARE PER NURSING PROTOCOL Performed By: #### L 501.080 ####[facility] [address] [place], [address] FINGERSTICK GLU 123 mg/dL High 74-106 [facility] Comment on above: Result Comment: EDGAR GEMENT OF PATIENT CARE PER NURSING PROTOCOL Performed By: #### L 501.080 ####[facility] [address] [place], [address] FINGERSTICK GLU 147 mg/dL High 74-106 [facility] Comment on above: Result Comment: EDGAR GEMENT OF PATIENT CARE PER NURSING PROTOCOL Performed By: #### L 501.080 ####[facility] [address] [place], [address] FINGERSTICK GLU 263 mg/dL High 74-106 [facility] Comment on above: Result Comment: EDGAR GEMENT OF PATIENT CARE PER NURSING PROTOCOL Performed By: #### L 501.080 ####[facility] [address] [place], [address] FINGERSTICK GLU 251 mg/dL High 74-106 [facility] Comment on above: Result Comment: EDGAR GEMENT OF PATIENT CARE PER NURSING PROTOCOL Performed By: #### L 501.080 ####[facility] [address] [place], [address] CBC W/Diff, Automatedon 12-0 Absolute Lymph 1.00 X10 3/uL Normal 0.83-4.51 [facility] Comment on above: Performed By: #### L 503.6005, L100.0100, L501.6900, L500.3400, L501.5200, L501.2450, L500.2500, L700.6800 ####[facility] [address] [place], [address] Absolute Neut 11.9 X10 3/uL High 2.0-7.7 [facility] Comment on above: Performed By: #### L 503.6005, L100.0100, L501.6900, L500.3400, L501.5200, L501.2450, L500.2500, L700.6800 ####[facility] [address] [place], [address] Basophils/100 WBC (Bld) 0.2 % Normal 0-1 [facility] Comment on above: Performed By: #### L 503.6005, L100.0100, L501.6900, L500.3400, L501.5200, L501.2450, L500.2500, L700.6800 ####[facility] [address] [place], [address] Eosinophils/100 WBC (Bld) 0.0 % Normal 0-5 [facility] Comment on above: Performed By: #### L 503.6005, L100.0100, L501.6900, L500.3400, L501.5200, L501.2450, L500.2500, L700.6800 ####[facility] [address] [place], [address] Erythrocyte distribution width (RBC) [Ratio] 12.3 % Normal 11.6-14.6 [facility] Comment on above: Performed By: #### L 503.6005, L100.0100, L501.6900, L500.3400, L501.5200, L501.2450, L500.2500, L700.6800 ####[facility] [address] [place], [address] Hematocrit (Bld) [Volume fraction] 38.3 % Normal 37-47 [facility] Comment on above: Performed By: #### L 503.6005, L100.0100, L501.6900, L500.3400, L501.5200, L501.2450, L500.2500, L700.6800 ####[facility] [address] [place], [address] Hemoglobin (Bld) [Mass/Vol] 13.0 g/dL Normal 12.0-15.0 [facility] Comment on above: Performed By: #### L 503.6005, L100.0100, L501.6900, L500.3400, L501.5200, L501.2450, L500.2500, L700.6800 ####[facility] [address] [place], [address] IG% 0.600 Normal 0.0-0.9 [facility] Comment on above: Result Comment: IG% - Immature Granulocytes (promyelocytes, myelocytes andmetamyelocytes) > 1% indicates that a LEFT SHIFT is Present. Performed By: #### L 503.6005, L100.0100, L501.6900, L500.3400, L501.5200, L501.2450, L500.2500, L700.6800 ####[facility] [address] [place], [address] Lymphocytes/100 WBC (Bld) 7.5 % Low 19-41 [facility] Comment on above: Performed By: #### L 503.6005, L100.0100, L501.6900, L500.3400, L501.5200, L501.2450, L500.2500, L700.6800 ####[facility] [address] [place], [address] MCH (RBC) [Entitic mass] 29.7 pg Normal 27.0-32.0 [facility] Comment on above: Performed By: #### L 503.6005, L100.0100, L501.6900, L500.3400, L501.5200, L501.2450, L500.2500, L700.6800 ####[facility] [address] [place], [address] MCHC (RBC) [Mass/Vol] 33.9 g/dL Normal 32-36 [facility] Comment on above: Performed By: #### L 503.6005, L100.0100, L501.6900, L500.3400, L501.5200, L501.2450, L500.2500, L700.6800 ####[facility] [address] [place], [address] MCV (RBC) [Entitic vol] 87.6 fL Normal 81-99 [facility] Comment on above: Performed By: #### L 503.6005, L100.0100, L501.6900, L500.3400, L501.5200, L501.2450, L500.2500, L700.6800 ####[facility] [address] [place], [address] Monocytes/100 WBC (Bld) 2.8 % Normal 0-10 [facility] Comment on above: Performed By: #### L 503.6005, L100.0100, L501.6900, L500.3400, L501.5200, L501.2450, L500.2500, L700.6800 ####[facility] [address] [place], [address] Neutrophils/100 WBC (Bld) 88.9 % High 47-70 [facility] Comment on above: Performed By: #### L 503.6005, L100.0100, L501.6900, L500.3400, L501.5200, L501.2450, L500.2500, L700.6800 ####[facility] [address] [place], [address] Nucleated RBC (Bld) [#/Vol] 0 10*3/uL Normal 0-5 [facility] Comment on above: Performed By: #### L 503.6005, L100.0100, L501.6900, L500.3400, L501.5200, L501.2450, L500.2500, L700.6800 ####[facility] [address] [place], [address] Platelet mean volume (Bld) [Entitic vol] 13.0 fL High 6.2-12.0 [facility] Comment on above: Performed By: #### L 503.6005, L100.0100, L501.6900, L500.3400, L501.5200, L501.2450, L500.2500, L700.6800 ####[facility] [address] [place], [address] Platelets (Bld) [#/Vol] 169 10*3/uL Normal 150-450 [facility] Comment on above: Performed By: #### L 503.6005, L100.0100, L501.6900, L500.3400, L501.5200, L501.2450, L500.2500, L700.6800 ####[facility] [address] [place], [address] RBC (Bld) [#/Vol] 4.37 10*6/uL Normal 4.2-5.4 [facility] Comment on above: Performed By: #### L 503.6005, L100.0100, L501.6900, L500.3400, L501.5200, L501.2450, L500.2500, L700.6800 ####[facility] [address] [place], [address] RDW SD 39.6 fl Normal 35.1-43.9 [facility] Comment on above: Performed By: #### L 503.6005, L100.0100, L501.6900, L500.3400, L501.5200, L501.2450, L500.2500, L700.6800 ####[facility] [address] [place], [address] WBC (Bld) [#/Vol] 13.4 10*3/uL High 4.4-11.0 [facility] Comment on above: Performed By: #### L 503.6005, L100.0100, L501.6900, L500.3400, L501.5200, L501.2450, L500.2500, L700.6800 ####[facility] [address] [place], [address] Emergency Department Summary on 08-02-2024 Emergency Department Summary Normal [facility] H AND P Exam - Hospitaliston 08-02-2024 H&P Exam - Hospitalist Normal [facility] Hemoglobin A1con 08-02-2024 HbA1c (Bld) [Mass fraction] 7.9 % High 3.8-5.6 [facility] Comment on above: Result Comment: Norm al < 5.7 % Prediabetic 5.7 - 6.4 % Diabetic >or= 6.5 % Please note range changes. Performed By: #### L 500.2500, L501.9985 ####[facility] [address] [place], [address] Kidney and Bladderon 024 Kidney and Bladder Normal [facility] Lactic Acidon 08-02-2024 Lactate [Moles/Vol] 1.4 mmol/L Normal 0.4-1.9 [facility] Comment on above: Performed By: #### L 503.6005 ####[facility] [address] [place], [address] Lactate [Moles/Vol] 0.9 mmol/L Normal 0.4-1.9 [facility] Comment on above: Order Comment: Y Performed By: #### L 503.6005 ####[facility] [address] [place], [address] Lactate [Moles/Vol] 2.2 mmol/L Invalid Interpretation Code 0.4-1.9 [facility] Comment on above: Order Comment: Y Result Comment: Crit ical Result(s) Called at: 01:06:13 08/02/2024 by:Jhoana Martínez lforrestResults read back by same. Performed By: #### L 503.6005, L100.0100, L501.6900, L500.3400, L501.5200, L501.2450, L500.2500, L700.6800 ####[facility] [address] [place], [address] Lipaseon 08-02-2024 Lipase [Catalytic activity/Vol] U/L Low 13-75 [facility] Comment on above: Result Comment: Sulma schmitz note:LIPASE revised reference range effective 22.New Lipase methodology. Expected to produce lower valuesthan the previous assay method.NEW Reference Range: 13 - 75 U/L Performed By: #### L 503.6005, L100.0100, L501.6900, L500.3400, L501.5200, L501.2450, L500.2500, L700.6800 ####[facility] [address] [place], [place], [phone] Liver Profileon 08-02-2024 Albumin [Mass/Vol] 4.1 g/dL Normal 3.2-5.0 [facility] Comment on above: Performed By: #### L 503.6005, L100.0100, L501.6900, L500.3400, L501.5200, L501.2450, L500.2500, L700.6800 ####[facility] [address] [place], [place], [phone] ALK P 78 U/L Normal 45-117 [facility] Comment on above: Performed By: #### L 503.6005, L100.0100, L501.6900, L500.3400, L501.5200, L501.2450, L500.2500, L700.6800 ####[facility] [address] [place], [address] ALT [Catalytic activity/Vol] 15 U/L Normal 13-56 [facility] Comment on above: Performed By: #### L 503.6005, L100.0100, L501.6900, L500.3400, L501.5200, L501.2450, L500.2500, L700.6800 ####[facility] [address], [address] AST [Catalytic activity/Vol] 13 U/L Low 15-37 [facility] Comment on above: Performed By: #### L 503.6005, L100.0100, L501.6900, L500.3400, L501.5200, L501.2450, L500.2500, L700.6800 ####[facility] [address] [place], [address] Bilirubin [Mass/Vol] 1.20 mg/dL High 0.20-1.00 [facility] Comment on above: Result Comment: For patients on eltrombopag therapy, use of Dimension [place] TBIL is not recommended. Performed By: #### L 503.6005, L100.0100, L501.6900, L500.3400, L501.5200, L501.2450, L500.2500, L700.6800 ####[facility] [address] [place], [address] Bilirubin.direct [Mass/Vol] 0.38 mg/dL High 0.00-0.30 [facility] Comment on above: Performed By: #### L 503.6005, L100.0100, L501.6900, L500.3400, L501.5200, L501.2450, L500.2500, L700.6800 ####[facility] [address] [place], [address] Globulin (S) [Mass/Vol] 3.3 g/dL Normal 2.2-4.2 [facility] Comment on above: Performed By: #### L 503.6005, L100.0100, L501.6900, L500.3400, L501.5200, L501.2450, L500.2500, L700.6800 ####[facility] [address] [place], [address] T PROT 7.4 g/dL Normal 6.4-8.2 [facility] Comment on above: Performed By: #### L 503.6005, L100.0100, L501.6900, L500.3400, L501.5200, L501.2450, L500.2500, L700.6800 ####[facility] [address] [place], [address] Magnesiumon 08-02-2024 Magnesium [Mass/Vol] 2.5 mg/dL Normal 1.6-2.6 [facility] Comment on above: Performed By: #### L 501.5200, L501.2300 ####[facility] [address] [place], [address] Magnesium [Mass/Vol] 1.5 mg/dL Low 1.6-2.6 [facility] Comment on above: Performed By: #### L 503.6005, L100.0100, L501.6900, L500.3400, L501.5200, L501.2450, L500.2500, L700.6800 ####[facility] [address] [place], [address] Phosphoruson 08-02-2024 Phosphate [Mass/Vol] 2.2 mg/dL Low 2.5-4.9 [facility] Comment on above: Performed By: #### L 501.5200, L501.2300 ####[facility] [address] [place], [address] ,Serum,hCG Quali.on 08-02-2024 HCG, SERUM QUAL Negative Normal [facility] Comment on above: Performed By: #### L 503.6005, L100.0100, L501.6900, L500.3400, L501.5200, L501.2450, L500.2500, L700.6800 ####[facility] [address] [place], [address] Urinalysis, Completeon 08-02 BACTERIA 1+ /hpf Normal None Seen [facility] Comment on above: Order Comment: CLEAN CATCH Performed By: #### L 400.0001 ####[facility] [address] [place], [address] EPI,SQUAMOUS 0-5 SEEN Normal 5-10 [facility] Comment on above: Order Comment: CLEAN CATCH Performed By: #### L 400.0001 ####[facility] [address] [place], [address] WBC 0-5 SEEN Normal 0-5 [facility] Comment on above: Order Comment: CLEAN CATCH Performed By: #### L 400.0001 ####[facility] [address] [place], [address] Mucus Ql (Urine sed) 0 SEEN Normal [facility] Comment on above: Order Comment: CLEAN CATCH Performed By: #### L 400.0001 ####[facility] [address] [place], [address] RBC 0 SEEN Normal 0-5 [facility] Comment on above: Order Comment: CLEAN CATCH Performed By: #### L 400.0001 ####[facility] [address] [place], [address] Urine Drug Screen (VISTA)on 08-02-2024 AMPHETAMINES Negative Normal <1000 ng/mL [facility] Comment on above: Performed By: #### L 505.5000 ####[facility] [address] [place], [address] BARBITIURATES Negative Normal < 200 ng/mL [facility] Comment on above: Performed By: #### L 505.5000 ####[facility] [address] [place] [id number] BENZODIAZIPINE Negative Normal < 200 ng/mL [facility] Comment on above: Performed By: #### L 505.5000 ####[facility] [address] [place], [address] COCAINE Negative Normal < 300 ng/mL [facility] Comment on above: Performed By: #### L 505.5000 ####[facility] [address] [place] [address] ECSTACY Negative Normal < 500 ng/mL [facility] Comment on above: Performed By: #### L 505.5000 ####[facility] [address] [place] [address] METHADONE Negative Normal < 300 ng/mL [facility] Comment on above: Performed By: #### L 505.5000 ####[facility] [address] [place] [address] OPIATES Negative Normal < 300 ng/mL [facility] Comment on above: Performed By: #### L 505.5000 ####[facility] [address] [place] [address] PCP Negative Normal < 25 ng/mL [facility] Comment on above: Performed By: #### L 505.5000 ####[facility] [address] [place] [address] THC Positive Abnormal < 50 ng/mL [facility] Comment on above: Performed By: #### L 505.5000 ####[facility] [address] [place] [address] VISTA UDS PH 5 Normal [facility] Comment on above: Performed By: #### L 505.5000 ####[facility] [address] [place], [address] Venous Blood Gason 4 Blood Gas Type ISABELLE Normal [facility] Comment on above: Performed By: #### L 9000.0810 ####[facility] [address] [place], [address] CO2 [Moles/Vol] 17 mmol/L Low 23-33 [facility] Comment on above: Performed By: #### L 9000.0810 ####[facility] [address] [place], [address] HCO3 (Bld) [Moles/Vol] 16 mmol/L Low 22-26 [facility] Comment on above: Performed By: #### L 0.0810 ####[facility] [address] [place], [address] O2 Delivery Dev Room Air [facility] Comment on above: Performed By: #### L 9000.0810 ####[facility] [address] [place], [address] SITE Not entered [facility] Comment on above: Performed By: #### L 9000.0810 ####[facility] [address] [place], [address] VBG BE -9 mmol/L Low -1.0-3.5 [facility] Comment on above: Performed By: #### L 9000.0810 ####[facility] [address] [place], [address] VBG pCO2 28.0 mmHg Low 41-51 [facility] Comment on above: Performed By: #### L 9000.0810 ####[facility] [address] [place], [address] VBG pH 7.38 Normal 7.32-7.42 [facility] Comment on above: Performed By: #### L 9000.0810 ####[facility] [address] [place], [address] VBG PO2 46 mmHg High 25-40 [facility] Comment on above: Performed By: #### L 9000.0810 ####[facility] [address] [place], [address] VBG SO2 82 High 50-70 [facility] Comment on above: Performed By: #### L 9000.0810 ####[facility] [address] [place], [address] Chest PA and Lateralon 08-01 Chest PA and Lateral Normal [facility] Emergency Department Summary on 08-01-2024 Emergency Department Summary Normal [facility] CNNURSEon 07-23-2024 CNNURSE Nurse Visit (ENDIMT) KATHLEEN VILLA ([id number]) 1995 F T Date Time Provider Department 07/23/24 9:00 AM VAMSI CARSON During your visit today, we recorded the following information about you: Vamsi Carson RN 07/23/2024 9:04 AM Signed DIABETES CARE AND EDUCATION VISIT Location: [place] Type of visit: In person individual PATIENT'S [...] TIME: 8:47 AM Referring Provider: KVNG LEWIS [[id number]] Allergies As of Date: 07/23/2024 Noted Allergy [...] Date Reviewed: 07/19/2024 Reviewed by: Jessica Guerrero APRN.TELEGRAPH SERVICE RATER - Fully Assessed Visit Diagnoses:Type 1 diabetes mellitus with hyperglycemia, with long-term current use of insulin (HCC) [E10.65] Insulin pump status [Z96.41] Order(s):CONSULT TO DIABETES EDUCATION DSME [[id number]] Order #: [id number]: 2 Prescriptions as of 07/23/2024 - Acetone, [...] Units subcutaneously every 24 hours. - Insulin [place], Disposable, (PEN NEEDLE) 32 gauge x 5/32 [...] All meds reviewed before sx. Pt has aey also for after sx. CL 01/09/20 IC PNV prenata plus multivitamin Problem List As Of Date 07/23/2024 Noted Resolved Retinal detachment [H33.20] 10/26/2012 12/25/2012 SUMMARY [V999.95] 12/25/2012 Acute chest pain [R07.9] 12/25/2012 Marfan syndrome [Q87.40] 12/25/2012 DM (diabetes mellitus) (HCC) [E11.9] 12/25/2012 Gastroparesis due to DM (HCC) [E11.43, K31.84] 12/25/2012 PTSD (post-traumatic stress disorder) [F43.10] 12/25/2012 DVT prophylaxis [DHG7224] 12/25/2012 09/04/2013 DISPOSITION AND FOLLOW-UP [V999.01] 12/25/2012 09/04/2013 HTN (hypertension) [I10] Hypertension in , antepartum [O16.9] 09/19/2013 01/08/2014 GBS (group B Streptococcus mesa (more content not included)... Normal [facility] Dipak 07-19-2024 GIOVANA Telephone (ENDOIN) KATHLEEN VILLA ([id number]) 1995 F CHT Date Time Provider Department 07/19/24 JESSICA GUERRERO During your visit today, we recorded the following information about you: Lisa Aguilar LPN 07/19/2024 3:45 PM Signed Jessica Guerrero APRN.FRIEDA Ashby She was able to get upgraded pump recently. I am sending her to [employer] and [employer] to start. She will need new supplies from [facility] including Guardian 4 CGM and supplies for [employer] 780 G. Jessica Guerrero APRN.TELEGRAPH SERVICE RATER Lisa Aguilar LPN 07/24/2024 2:00 PM Signed [...] Date Reviewed: 07/19/2024 Reviewed by: Jessica Guerrero APRN.TELEGRAPH SERVICE RATER - Fully Assessed Prescriptions as of 07/30/2024 [...] Units subcutaneously every 24 hours. 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 Normal [facility] C. trachomatis+N. gonorrhoea e DNA DANIEL+probe Ql (Unsp spec)on 07-10-2024 C. trachomatis rRNA DANIEL+probe Ql (Unsp spec) Negative Normal Negative for Chlamydia trachomatis by amplificaton [facility] Comment on above: Order Comment: Speci men Type: SWABOrdering Facility: [facility] Address: [address] [place] [address] Performed By: #### T RVAMP, 79809-3 ####[facility] LABCLIA [id number] [place] [address] [place] N. gonorrhoeae rRNA DANIEL+probe Ql (Unsp spec) Negative Normal Negative for Neisseria gonorrhoeae by amplification [facility] Comment on above: Order Comment: Speci men Type: SWABOrdering Facility: [facility] Address: [address] [place] [address] Performed By: #### T RVAMP, 32795-2 ####[facility] LABCLIA [id number] [place] [address] [place] CNOVon 07-10-2024 CNOV Office Visit (OBGYWM ) KATHLEEN VILLA ([id number]) 1995 F CHT Date Time Provider Department [...] L2 SAB0 IAB0 Ectopic0 Multiple0 Live Births2 Entry Level Administrative Assistant History LMP: 11/26/2022 (Exact Date), Having periods Age at Menarche: 12 Age at First : Age at Menopause: Entry Level Administrative Assistant History Comments: Sexual Activity: Yes; Male [...] discussed with the Patient or Patient's Authorized Glue Drier Operator. As applicable, any other physician, advance practice provider, medical student, or other health professional student that will be observing or involved in the sensitive examination for educational or training purposes was discussed with the Patient or Authorized Glue Drier Operator. The Patient or Authorized Glue Drier Operator has agreed to proceed with the sensitive [...] external genitalia normal, normal Bartholin's glands, urethra, [place]'s glands, no vulvar lesions, no cervical lesions, good vaginal support, physiologic discharge present, normal appearing perineal body and perianal region BIMANUAL: uterus normal size, shape and consistency, no adnexal masses, and non-tender ASSESSMENT/PLAN: 1) Health maintenance:Bisexual Pap done with reflex H (more content not included)... Normal [facility] HCV RNA DANIEL+probe Qnon 07-10 HCV RNA DANIEL+probe Ql Not detected Normal Not detected [facility] Comment on above: Order Comment: Speci men Type: BLOOD SPECIMENOrdering Facility: [facility] Address: [address] [place] [address] Performed By: #### 1 1011-4 ####[facility] LABIA [id number] [place] [address] [place] HIGH RISK HUMAN PAPILLOMA DERECK (HPV), PCR FOR DETECTION AND GENOTYPINGon 07-10-2024 HPV 16 Ag Ql (Unsp spec) Not detected Normal Not detected [facility] Comment on above: Order Comment: Speci men Type: FLUID SPECIMENOrdering Facility: [facility] Address: [address] [place] [address] Performed By: #### H PVHRT ####[facility] LABIA [id number] [place] [address] [place] HPV 18 Ag Ql (Unsp spec) Not detected Normal Not detected [facility] Comment on above: Order Comment: Speci men Type: FLUID SPECIMENOrdering Facility: [facility] Address: [address] [place] [address] Performed By: #### H PVHRT ####[facility] LABIA [id number] [place] [address] [place] HPV 31+33+35+39+45+51+52+5 6+58+59+66+68 DNA DANIEL+probe Ql (Cvx) Not detected Normal Not detected [facility] Comment on above: Order Comment: Speci men Type: FLUID SPECIMENOrdering Facility: [facility] Address: [address] [place] [address] Result Comment: High Risk HPV Other Type includes HPV types 31, 33, 35, 39, 45, 51, 52, 56, 58, 59, 66 and 68. Performed By: #### H PVHRT ####[facility] LABCLIA [id number] [place] [address] [place] HIV 1+2 Ab IA Qlon 4 HIV 1 and 2 Ab IA.rapid Nom (S/P/Bld) Normal [facility] Comment on above: Order Comment: Speci men Type: BLOOD SPECIMENOrdering Facility: [facility] Address: [address] [place] [address] Result Comment: Test not indicated. Performed By: #### 3 1201-7, 82247-1 ####[facility] LABCLIA [id number] [place] [address] [place] HIV 1+2 Ab+HIV1 p24 Ag IA Ql Non-Reactive Normal Nonreactive [facility] Comment on above: Order Comment: Speci men Type: BLOOD SPECIMENOrdering Facility: [facility] Address: [address] [place] [address] Performed By: #### 3 1201-7, 34618-4 ####[facility] LABCLIA [id number] [place] [address] [place] HIV immunoassay testing algorithm interpretation (S/P/Bld) [Interp] Normal [facility] Comment on above: Order Comment: Speci men Type: BLOOD SPECIMENOrdering Facility: [facility] Address: [address] [place] [address] Result Comment: No e vidence of HIV-1 or HIV-2 infection. Should recent infection be suspected, repeat testing may be considered 2-3 weeks after this draw. [place] Rev. Code 3701.243(E): This information has been [...] or diagnoses. Performed By: #### 3 1201-7, 56421-2 ####[facility] LABCLIA [id number] [address] [address] [place] PAP TESTon 07-10-2024 ADEQUACY Normal [facility] Comment on above: Order Comment: Speci men Type: FLUID SPECIMENOrdering Facility: [facility] Address: [address] [place] [address] Result Comment: Sati sfactory for interpretation. Limited cellularity. Performed By: #### L [id number] ####[facility] LABCLIA [id number] [place] [address] [place] CASE REPORT Normal [facility] Comment on above: Order Comment: Speci men Type: FLUID SPECIMENOrdering Facility: [facility] Address: [address] [place] [address] Result Comment: Gyne cologic Cytology Report Case: [id number] Authorizing Provider: Jason Paredes MD Collected: 07/10/2024 12:13 PM Ordering Location: OB/Gynecology Received: 07/10/2024 03:39 PM First Screen: Aramouni, Heather, [place], ASCP Specimen: Pap Test, ThinPrep, Cervix Performed By: #### L [id number] ####[facility] LABCLIA [id number] [place] [address] [place] CLINICAL HISTORY, CYTOLOGY, PULVERIZER TENDER Routine Exam Normal [facility] Comment on above: Order Comment: Speci men Type: FLUID SPECIMENOrdering Facility: [facility] Address: [address] [place] [address] Performed By: #### L [id number] ####[facility] LABCLIA [id number] [place] [address] [place] FINAL PERFORMING LAB Normal [facility] Comment on above: Order Comment: Speci men Type: FLUID SPECIMENOrdering Facility: [facility] Address: [address] [place] [address] Result Comment: Tech nical component, metal fabricating inspector screening performed at [facility], [address] [id number] CLIA# [id number] Diagnostic interpretation performed at [facility], [address] [place], [place] [id number] CLIA# [id number] Management Lecturer: Brennen Holloway M.D. Performed By: #### L [id number] ####[facility] LABCLIA [id number] [place] [address] [place] INTERPRETATION, CYTOLOGY, PULVERIZER TENDER Normal [facility] Comment on above: Order Comment: Speci men Type: FLUID SPECIMENOrdering Facility: [facility] Address: [address] [place] [address] Result Comment: Nega tive for intraepithelial lesion or malignancy. Performed By: #### L [id number] ####[facility] LABCLIA [id number] [place] [address] [place] [facility] 06/04/2024 Normal [facility] Comment on above: Order Comment: Speci men Type: FLUID SPECIMENOrdering Facility: [facility] Address: [address] [place] [address] Performed By: #### L [id number] ####[facility] LABCLIA [id number] [place] [address] [place] PAP DISCLAIMER COMMENT The Pap Smear is a screening test for cervical cancer. False negative results occur with all screening tests, emphasizing the need for rescreening at recommended intervals, and clinical correlation. Normal [facility] Comment on above: Order Comment: Speci men Type: FLUID SPECIMENOrdering Facility: [facility] Address: [address] [place] [address] Performed By: #### L [id number] ####[facility] LABCLIA [id number] [place] [id number] [place] PAP REGISTRATION REPRESENTATIVE COMMENT This specimen has be en analyzed by the [employer] Imaging System, an automated imaging and review system, which assists the laboratory in evaluating cells on ThinPrep Pap tests. Following automated imaging, selected cazares from every slide are reviewed by a metal fabricating inspector. Normal [facility] Comment on above: Order Comment: Speci men Type: FLUID SPECIMENOrdering Facility: [facility] Address: [address] [place] [address] Performed By: #### L [id number] ####[facility] [id number] [place] [address] [place] Reagin and Treponema pallidu m IgG and IgM [Interp]on 07-10-2024 T. pallidum IgG+IgM IA Ql (S) Non-Reactive Normal Nonreactive [facility] Comment on above: Order Comment: Speci men Type: BLOOD SPECIMENOrdering Facility: [facility] Address: [address] [place] [address] Performed By: #### 3 1201-7, 06444-1 ####[facility] [id number] [place] [address] [place] Reagin+T pallidum IgG+IgM Se rPl-Impon 07-10-2024 Reagin and Treponema pallidum IgG and IgM [Interp] Cannot exclude recent Treponemal infection if specimen collected within 7-10 days after appearance of suspect lesions or 2-3 weeks after an exposure. Clinical correlation is required. Normal [facility] Comment on above: Order Comment: Speci men Type: BLOOD SPECIMENOrdering Facility: [facility] Address: [address] [place] [address] Performed By: #### 3 1201-7, 92950-3 ####[facility] [id number] [place] [address] [place] TRICHOMONAS VAGINALIS NAATon 07-10-2024 T. vaginalis DNA DANIEL+probe Ql (Unsp spec) Negative Normal Negative for Trichomonas vaginalis by amplification [facility] Comment on above: Order Comment: Speci men Type: SWABOrdering Facility: [facility] Address: [address] [place] [address] Performed By: #### T RVAMP, 24518-1 ####[facility] [id number] [place] [address] [place] TSH SerPl-aCncon 07-10-2024 TSH Qn 1.140 m[IU]/L Normal 0.270-4.200 [facility] Comment on above: Order Comment: Speci men Type: BLOOD SPECIMENOrdering Facility: [facility] Address: [address] [place] [address] Result Comment: If t he patient is , TSH reference range varies by gestational period: First Trimester (weeks 9-12): 0.180-2.990 mIU/L Second Trimester: 0.110-3.980 mIU/L Third Trimester: 0.480-4.710 mIU/L Kelvin Swain et al. A Practical Approach for the Verifications and Determination of Site- and Trimester-Specific Reference Intervals for Thyroid Function tests in . Thyroid, 2019:29:3:412-420. Dangelo Raya, et al. 2017 Guidelines of the [place] Thyroid Association for the Diagnosis and Management of Thyroid Disease during and the . Thyroid, 2017:27:3:315-389. Performed By: #### 3 016-3 ####[facility] [id number] [place] [address] [place] Dipak 06-24-2024 CNPN Telephone (INTMIN) KATHLEEN VILLA ([id number]) 1995 F CHT Date Time Provider Department [...] Insulin Lispro. [facility]ed with provider in office Please advise Jessica Guerrero APRN.FRIEDA 06/25/2024 1:58 PM Signed I recommend she sees elementary educator to review pump options- I am [...] to patient via phone. Patient verbalizes understanding. Swifto message sent for patients reference as requested. [...] every 24 hours.Disp: 38.7 mLRfl: 1 Insulin [place], Disposable, (PEN NEEDLE) 32 gauge x 5/32Inject [...] Units subcutaneously every 24 hours. - Insulin [place], Disposable, (PEN NEEDLE) 32 gauge x 5/32 [...] TEST STRIPS) (more content not included)... [facility] FRIEDAN Tele[facility] (QAMAR) KATHLEEN VILLA ([id number]) 1995 F T Date Time Provider Department 06/17/24 KVNG LEWIS During your visit today, we recorded the following information about you: Nichole Quinteros 06/17/2024 3:16 PM Signed Patient has been identified by name and date of : Yes [facility] Post Discharge V2 Form received [...] (post-traumatic stress disorder) [F43.10] 12/25/2012 DVT prophylaxis [HSO1646] 12/25/2012 09/04/2013 DISPOSITION AND FOLLOW-UP [V999.01] 12/25/2012 09/04/2013 HTN (hypertension) [I10] Hypertension in , antepartum [O16.9] 09/19/2013 01/08/2014 GBS (group B Streptococcus carrier), +RV cultur*11/11/2013 04/16/2014 [Z34.90] 11/22/2013 04/16/2014 Diabetes mellitus in (HCC) [O24.919] 12/25/2013 04/16/2014 Diabetic ketoacidosis without coma associated w*01/08/2014 02/04/2023 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] 01/08/2014 DVT prophylaxis [ZQB0245] 02/25/2014 04/16/2014 care and examination [Z39.2] 02/25/2014 [...] Status:Closed by RE GONZALEZ on 06/17/24 Normal [facility] Culture, Blood (WB)on 2023 CUB No growth in 5 days. Normal [facility] Comment on above: Performed By: #### M 200.1000 ####[facility] [address] [place], [address] Basic Metabolic Profile (BMP )on 06-11-2024 BUN/CRE 9.8 RATIO Low 06-16 [facility] Comment on above: Performed By: #### L 500.2500 ####[facility] [address] [place], [address] CA,Total 8.7 mg/dL Normal 8.5-10.1 [facility] Comment on above: Performed By: #### L 500.2500 ####[facility] [address] [place], [address] Chloride [Moles/Vol] 107 mmol/L Normal 98-107 [facility] Comment on above: Performed By: #### L 500.2500 ####[facility] [address] [place], [address] CO2 [Moles/Vol] 27.0 mmol/L Normal 21.0-32.0 [facility] Comment on above: Performed By: #### L 500.2500 ####[facility] [address] [place], [address] Creatinine [Mass/Vol] 0.82 mg/dL Normal 0.55-1.02 [facility] Comment on above: Result Comment: The validity of the calculated GFR GFRAA in patients over70 years has not been determined. Clinical correlation isessential. Performed By: #### L 500.2500 ####[facility] [address] [place], [address] ECRCL 105.79 ml/min Normal [facility] Comment on above: Performed By: #### L 500.2500 ####[facility] [address] [place], [address] EST GFR - AA 106 mL/min Normal >60 [facility] Comment on above: Result Comment: Afri can [place] GFR Calc Performed By: #### L 500.2500 ####[facility] [address] [place], [address] GAP 6 Normal 5-15 [facility] Comment on above: Performed By: #### L 500.2500 ####[facility] [address] [place] [address] GFR/1.73 sq M.predicted among non-blacks MDRD (S/P/Bld) [Vol rate/Area] 87 mL/min/{1.73_m2} Normal >60 [facility] Comment on above: Result Comment: Non- GFR Calc Performed By: #### L 500.2500 ####[facility] [address] [place], [address] Glucose [Mass/Vol] 194 mg/dL High 74-106 [facility] Comment on above: Result Comment: Fast ing Glucose result greater than or equal to 126 mg/dLsuggests DIABETES MELLITUS per A.D.A. criteria. Performed By: #### L 500.2500 ####[facility] [address] [place], [address] Potassium [Moles/Vol] 3.3 mmol/L Low 3.5-5.1 [facility] Comment on above: Performed By: #### L 500.2500 ####[facility] [address] [place], [address] Sodium [Moles/Vol] 140 mmol/L Normal 136-145 [facility] Comment on above: Performed By: #### L 500.2500 ####[facility] [address] [place], [address] Urea nitrogen [Mass/Vol] 8 mg/dL Normal - [facility] Comment on above: Performed By: #### L 500.2500 ####[facility] [address] [place], [address] Bedside Glucoseon 06-11-2024 FINGERSTICK GLU 116 mg/dL High 74-106 [facility] Comment on above: Result Comment: Dr Ej foreman FollowedMANAGEMENT OF PATIENT CARE PER NURSING PROTOCOL Performed By: #### L 501.080 ####[facility] [address] [place], [address] FINGERSTICK GLU 180 mg/dL High 74-106 [facility] Comment on above: Result Comment: EDGAR GEMENT OF PATIENT CARE PER NURSING PROTOCOL Performed By: #### L 501.080 ####[facility] [address] [place], [address] Discharge Instructionon 05-28 Discharge Instruction Normal [facility] Acetone Serumon 06-10-2024 ACETONE SERUM Negative Normal NEG [facility] Comment on above: Performed By: #### L 501.6900 ####[facility] [address] [place], [address] Basic Metabolic Profile (BMP )on 06-10-2024 BUN Normal - [facility] Comment on above: Result Comment: Mary ballard OM: Ordered Performed By: #### L 500.2500 ####[facility] [address] [place], [address] BUN/CRE Normal 06-16 [facility] Comment on above: Result Comment: Canc elled via OM: MD Ordered Performed By: #### L 500.2500 ####[facility] [address] [place], [address] CA,Total Normal 8.5-10.1 [facility] Comment on above: Result Comment: Canc elled via OM: MD Ordered Performed By: #### L 500.2500 ####[facility] [address] [place], [address] CL Normal 98-107 [facility] Comment on above: Result Comment: Canc elled via OM: MD Ordered Performed By: #### L 500.2500 ####[facility] [address] [place], [address] CO2 Normal 21.0-32.0 [facility] Comment on above: Result Comment: Canc elled via OM: MD Ordered Performed By: #### L 500.2500 ####[facility] [address] [place], [address] CREAT,SERUM Normal 0.55-1.02 [facility] Comment on above: Result Comment: Canc elled via OM: MD Ordered Performed By: #### L 500.2500 ####[facility] [address] [place], [address] EST GFR Normal >60 [facility] Comment on above: Result Comment: Canc elled via OM: MD Ordered Performed By: #### L 500.2500 ####[facility] [address] [place], [address] EST GFR - AA Normal >60 [facility] Comment on above: Result Comment: Canc elled via OM: MD Ordered Performed By: #### L 500.2500 ####[facility] [address] [place], [address] GAP Normal 5-15 [facility] Comment on above: Result Comment: Canc elled via OM: MD Ordered Performed By: #### L 500.2500 ####[facility] [address] [place], [address] GLU Normal 74-106 [facility] Comment on above: Result Comment: Canc elled via OM: MD Ordered Performed By: #### L 500.2500 ####[facility] [address] [place], [address] Potassium Normal 3.5-5.1 [facility] Comment on above: Result Comment: Canc elled via OM: MD Ordered Performed By: #### L 500.2500 ####[facility] [address] [place], [address] Basic Metabolic Profile (BMP) Normal 136-145 [facility] Comment on above: Result Comment: Canc elled via OM: MD Ordered Performed By: #### L 500.2500 ####[facility] [address] [place], [address] BUN/CRE 9.8 RATIO Low 10-20 [facility] Comment on above: Performed By: #### L 500.2500 ####[facility] [address] [place], [address] CA,Total 7.9 mg/dL Low 8.5-10.1 [facility] Comment on above: Performed By: #### L 500.2500 ####[facility] [address] [place], [address] Chloride [Moles/Vol] 107 mmol/L Normal 98-107 [facility] Comment on above: Performed By: #### L 500.2500 ####[facility] [address] [place], [address] CO2 [Moles/Vol] 25.0 mmol/L Normal 21.0-32.0 [facility] Comment on above: Performed By: #### L 500.2500 ####[facility] [address] [place], [address] Creatinine [Mass/Vol] 0.61 mg/dL Normal 0.55-1.02 [facility] Comment on above: Result Comment: The validity of the calculated GFR GFRAA in patients over70 years has not been determined. Clinical correlation isessential. Performed By: #### L 500.2500 ####[facility] [address] [place], [address] ECRCL 142.21 ml/min Normal [facility] Comment on above: Performed By: #### L 500.2500 ####[facility] [address] [place], [address] EST GFR - AA 148 mL/min Normal >60 [facility] Comment on above: Result Comment: Afri can Beninese GFR Calc Performed By: #### L 500.2500 ####[facility] [address] [place], [address] GAP 10 Normal 5-15 [facility] Comment on above: Performed By: #### L 500.2500 ####[facility] [address] [place], [address] GFR/1.73 sq M.predicted among non-blacks MDRD (S/P/Bld) [Vol rate/Area] 123 mL/min/{1.73_m2} Normal >60 [facility] Comment on above: Result Comment: Non- GFR Calc Performed By: #### L 500.2500 ####[facility] [address] [place], [address] Glucose [Mass/Vol] 89 mg/dL Normal 74-106 [facility] Comment on above: Performed By: #### L 500.2500 ####[facility] [address] [place], [address] Potassium [Moles/Vol] 3.0 mmol/L Low 3.5-5.1 [facility] Comment on above: Performed By: #### L 500.2500 ####[facility] [address] [place], [address] Sodium [Moles/Vol] 141 mmol/L Normal 136-145 [facility] Comment on above: Performed By: #### L 500.2500 ####[facility] [address] [place], [address] Urea nitrogen [Mass/Vol] 6 mg/dL Low 7-18 [facility] Comment on above: Performed By: #### L 500.2500 ####[facility] [address] [place], [address] BUN/CRE 11.2 RATIO Normal 10-20 [facility] Comment on above: Performed By: #### L 501.5200, L500.2500, L100.0100, L501.2300 ####[facility] [address] [place], [address] CA,Total 8.0 mg/dL Low 8.5-10.1 [facility] Comment on above: Performed By: #### L 501.5200, L500.2500, L100.0100, L501.2300 ####[facility] [address] [place], [address] Chloride [Moles/Vol] 107 mmol/L Normal 98-107 [facility] Comment on above: Performed By: #### L 501.5200, L500.2500, L100.0100, L501.2300 ####[facility] [address] [place], [address] CO2 [Moles/Vol] 24.0 mmol/L Normal 21.0-32.0 [facility] Comment on above: Performed By: #### L 501.5200, L500.2500, L100.0100, L501.2300 ####[facility] [address] [place], [address] Creatinine [Mass/Vol] 0.63 mg/dL Normal 0.55-1.02 [facility] Comment on above: Result Comment: The validity of the calculated GFR GFRAA in patients over70 years has not been determined. Clinical correlation isessential. Performed By: #### L 501.5200, L500.2500, L100.0100, L501.2300 ####[facility] [address] [place], [address] ECRCL 137.70 ml/min Normal [facility] Comment on above: Performed By: #### L 501.5200, L500.2500, L100.0100, L501.2300 ####[facility] [address] [place], [address] EST GFR - AA 144 mL/min Normal >60 [facility] Comment on above: Result Comment: Afri can Beninese GFR Calc Performed By: #### L 501.5200, L500.2500, L100.0100, L501.2300 ####[facility] [address] [place], [address] GAP 7 Normal 5-15 [facility] Comment on above: Performed By: #### L 501.5200, L500.2500, L100.0100, L501.2300 ####[facility] [address] [place], [address] GFR/1.73 sq M.predicted among non-blacks MDRD (S/P/Bld) [Vol rate/Area] 119 mL/min/{1.73_m2} Normal >60 [facility] Comment on above: Result Comment: Non- GFR Calc Performed By: #### L 501.5200, L500.2500, L100.0100, L501.2300 ####[facility] [address] [place], [address] Glucose [Mass/Vol] 127 mg/dL High 74-106 [facility] Comment on above: Result Comment: Fast ing Glucose result greater than or equal to 126 mg/dLsuggests DIABETES MELLITUS per A.D.A. criteria. Performed By: #### L 501.5200, L500.2500, L100.0100, L501.2300 ####[facility] [address] [place], [address] Potassium [Moles/Vol] 3.7 mmol/L Normal 3.5-5.1 [facility] Comment on above: Performed By: #### L 501.5200, L500.2500, L100.0100, L501.2300 ####[facility] [address] [place], [address] Sodium [Moles/Vol] 138 mmol/L Normal 136-145 [facility] Comment on above: Performed By: #### L 501.5200, L500.2500, L100.0100, L501.2300 ####[facility] [address] [place], [address] Urea nitrogen [Mass/Vol] 7 mg/dL Normal 7-18 [facility] Comment on above: Performed By: #### L 501.5200, L500.2500, L100.0100, L501.2300 ####[facility] [address] [place], [address] BUN/CRE 11.2 RATIO Normal 10-20 [facility] Comment on above: Performed By: #### L 500.2500 ####[facility] [address] [place], [address] CA,Total 7.9 mg/dL Low 8.5-10.1 [facility] Comment on above: Performed By: #### L 500.2500 ####[facility] [address] [place], [address] Chloride [Moles/Vol] 107 mmol/L Normal 98-107 [facility] Comment on above: Performed By: #### L 500.2500 ####[facility] [address] [place], [address] CO2 [Moles/Vol] 25.0 mmol/L Normal 21.0-32.0 [facility] Comment on above: Performed By: #### L 500.2500 ####[facility] [address] [place], [address] Creatinine [Mass/Vol] 0.81 mg/dL Normal 0.55-1.02 [facility] Comment on above: Result Comment: The validity of the calculated GFR GFRAA in patients over70 years has not been determined. Clinical correlation isessential. Performed By: #### L 500.2500 ####[facility] [address] [place], [address] ECRCL 107.10 ml/min Normal [facility] Comment on above: Performed By: #### L 500.2500 ####[facility] [address] [place], [address] EST GFR - AA 108 mL/min Normal >60 [facility] Comment on above: Result Comment: Afri can Beninese GFR Calc Performed By: #### L 500.2500 ####[facility] [address] [place], [address] GAP 7 Normal 5-15 [facility] Comment on above: Performed By: #### L 500.2500 ####[facility] [address] [place], [address] GFR/1.73 sq M.predicted among non-blacks MDRD (S/P/Bld) [Vol rate/Area] 89 mL/min/{1.73_m2} Normal >60 [facility] Comment on above: Result Comment: Non- GFR Calc Performed By: #### L 500.2500 ####[facility] [address] [place], [address] Glucose [Mass/Vol] 185 mg/dL High 74-106 [facility] Comment on above: Result Comment: Fast ing Glucose result greater than or equal to 126 mg/dLsuggests DIABETES MELLITUS per A.D.A. criteria. Performed By: #### L 500.2500 ####[facility] [address] [place], [address] Potassium [Moles/Vol] 2.9 mmol/L Low 3.5-5.1 [facility] Comment on above: Performed By: #### L 500.2500 ####[facility] [address] [place], [address] Sodium [Moles/Vol] 140 mmol/L Normal 136-145 [facility] Comment on above: Performed By: #### L 500.2500 ####[facility] [address] [place], [address] Urea nitrogen [Mass/Vol] 9 mg/dL Normal 7-18 [facility] Comment on above: Performed By: #### L 500.2500 ####[facility] [address] [place], [address] Bedside Glucoseon 06-10-2024 FINGERSTICK GLU 122 mg/dL High 74-106 [facility] Comment on above: Result Comment: EDGAR GEMENT OF PATIENT CARE PER NURSING PROTOCOL Performed By: #### L 501.080 ####[facility] [address] [place], [address] FINGERSTICK GLU 120 mg/dL High 74-106 [facility] Comment on above: Result Comment: EDGAR GEMENT OF PATIENT CARE PER NURSING PROTOCOL Performed By: #### L 501.080 ####[facility] [address] [place], [address] FINGERSTICK GLU 158 mg/dL High 74-106 [facility] Comment on above: Result Comment: EDGAR GEMENT OF PATIENT CARE PER NURSING PROTOCOL Performed By: #### L 501.080 ####[facility] [address] [place], [address] FINGERSTICK GLU 93 mg/dL Normal 74-106 [facility] Comment on above: Result Comment: EDGAR GEMENT OF PATIENT CARE PER NURSING PROTOCOL Performed By: #### L 501.080 ####[facility] [address] [place], [address] FINGERSTICK GLU 85 mg/dL Normal 74-106 [facility] Comment on above: Result Comment: EDGAR GEMENT OF PATIENT CARE PER NURSING PROTOCOL Performed By: #### L 501.080 ####[facility] [address] [place], [address] FINGERSTICK GLU 67 mg/dL Low 74-106 [facility] Comment on above: Result Comment: EDGAR GEMENT OF PATIENT CARE PER NURSING PROTOCOL Performed By: #### L 501.080 ####[facility] [address] [place], [address] FINGERSTICK GLU 64 mg/dL Low 74-106 [facility] Comment on above: Result Comment: EDGAR GEMENT OF PATIENT CARE PER NURSING PROTOCOL Performed By: #### L 501.080 ####[facility] [address] [place], [address] FINGERSTICK GLU 74 mg/dL Normal 74-106 [facility] Comment on above: Result Comment: EDGAR GEMENT OF PATIENT CARE PER NURSING PROTOCOL Performed By: #### L 501.080 ####[facility] [address] [place], [address] FINGERSTICK GLU 124 mg/dL High 74-106 [facility] Comment on above: Result Comment: EDGAR GEMENT OF PATIENT CARE PER NURSING PROTOCOL Performed By: #### L 501.080 ####[facility] [address] [place], [address] FINGERSTICK GLU 146 mg/dL High 74-106 [facility] Comment on above: Result Comment: EDGAR GEMENT OF PATIENT CARE PER NURSING PROTOCOL Performed By: #### L 501.080 ####[facility] [address] [place], [address] FINGERSTICK GLU 122 mg/dL High [facility]106 [facility] Comment on above: Result Comment: EDGAR GEMENT OF PATIENT CARE PER NURSING PROTOCOL Performed By: #### L 501.080 ####[facility] [address] [place], [address] FINGERSTICK GLU 286 mg/dL High -106 [facility] Comment on above: Result Comment: EDGAR GEMENT OF PATIENT CARE PER NURSING PROTOCOL Performed By: #### L 501.080 ####[facility] [address] [place], [address] FINGERSTICK GLU 233 mg/dL High 74-106 [facility] Comment on above: Result Comment: EDGAR GEMENT OF PATIENT CARE PER NURSING PROTOCOL Performed By: #### L 501.080 ####[facility] [address] [place], [address] FINGERSTICK GLU 194 mg/dL High -106 [facility] Comment on above: Result Comment: EDGAR GEMENT OF PATIENT CARE PER NURSING PROTOCOL Performed By: #### L 501.080 ####[facility] [address] [place], [address] FINGERSTICK GLU 195 mg/dL High 74-106 [facility] Comment on above: Result Comment: EDGAR GEMENT OF PATIENT CARE PER NURSING PROTOCOL Performed By: #### L 501.080 ####[facility] [address] [place], [address] CBC W/Diff, Automatedon 10-1 Absolute Lymph 2.08 X10 3/uL Normal 0.83-4.51 [facility] Comment on above: Performed By: #### L 501.5200, L500.2500, L100.0100, L501.2300 ####[facility] [address] [place], [address] Absolute Neut 11.6 X10 3/uL High 2.0-7.7 [facility] Comment on above: Performed By: #### L 501.5200, L500.2500, L100.0100, L501.2300 ####[facility] [address] [place], [address] Basophils/100 WBC (Bld) 0.3 % Normal 0-1 [facility] Comment on above: Performed By: #### L 501.5200, L500.2500, L100.0100, L501.2300 ####[facility] [address] [place], [address] Eosinophils/100 WBC (Bld) 0.1 % Normal 0-5 [facility] Comment on above: Performed By: #### L 501.5200, L500.2500, L100.0100, L501.2300 ####[facility] [address] [place], [address] Erythrocyte distribution width (RBC) [Ratio] 12.6 % Normal 11.6-14.6 [facility] Comment on above: Performed By: #### L 501.5200, L500.2500, L100.0100, L501.2300 ####[facility] [address] [place], [address] Hematocrit (Bld) [Volume fraction] 36.7 % Low 37-47 [facility] Comment on above: Performed By: #### L 501.5200, L500.2500, L100.0100, L501.2300 ####[facility] [address] [place], [address] Hemoglobin (Bld) [Mass/Vol] 12.2 g/dL Normal 12.0-15.0 [facility] Comment on above: Performed By: #### L 501.5200, L500.2500, L100.0100, L501.2300 ####[facility] [address] [place], [address] IG% 1.100 High 0.0-0.9 [facility] Comment on above: Result Comment: IG% - Immature Granulocytes (promyelocytes, myelocytes andmetamyelocytes) > 1% indicates that a LEFT SHIFT is Present. Performed By: #### L 501.5200, L500.2500, L100.0100, L501.2300 ####[facility] [address] [place], [address] Lymphocytes/100 WBC (Bld) 14.1 % Low 19-41 [facility] Comment on above: Performed By: #### L 501.5200, L500.2500, L100.0100, L501.2300 ####[facility] [address] [place], [address] MCH (RBC) [Entitic mass] 29.5 pg Normal 27.0-32.0 [facility] Comment on above: Performed By: #### L 501.5200, L500.2500, L100.0100, L501.2300 ####[facility] [address] [place], [address] MCHC (RBC) [Mass/Vol] 33.2 g/dL Normal 32-36 [facility] Comment on above: Performed By: #### L 501.5200, L500.2500, L100.0100, L501.2300 ####[facility] [address] [place], [address] MCV (RBC) [Entitic vol] 88.9 fL Normal 81-99 [facility] Comment on above: Performed By: #### L 501.5200, L500.2500, L100.0100, L501.2300 ####[facility] [address] [place], [address] Monocytes/100 WBC (Bld) 5.9 % Normal 0-10 [facility] Comment on above: Performed By: #### L 501.5200, L500.2500, L100.0100, L501.2300 ####[facility] [address] [place], [address] Neutrophils/100 WBC (Bld) 78.5 % High 47-70 [facility] Comment on above: Performed By: #### L 501.5200, L500.2500, L100.0100, L501.2300 ####[facility] [address] [place], [address] Nucleated RBC (Bld) [#/Vol] 0 10*3/uL Normal 0-5 [facility] Comment on above: Performed By: #### L 501.5200, L500.2500, L100.0100, L501.2300 ####[facility] [address] [place], [address] Platelet mean volume (Bld) [Entitic vol] 11.8 fL Normal 6.2-12.0 [facility] Comment on above: Performed By: #### L 501.5200, L500.2500, L100.0100, L501.2300 ####[facility] [address] [place], [address] Platelets (Bld) [#/Vol] 187 10*3/uL Normal 150-450 [facility] Comment on above: Performed By: #### L 501.5200, L500.2500, L100.0100, L501.2300 ####[facility] [address] [place], [address] RBC (Bld) [#/Vol] 4.13 10*6/uL Low 4.2-5.4 [facility] Comment on above: Performed By: #### L 501.5200, L500.2500, L100.0100, L501.2300 ####[facility] [address] [place], [address] RDW SD 41.1 fl Normal 35.1-43.9 [facility] Comment on above: Performed By: #### L 501.5200, L500.2500, L100.0100, L501.2300 ####[facility] [address] [place], [address] WBC (Bld) [#/Vol] 14.8 10*3/uL High 4.4-11.0 [facility] Comment on above: Performed By: #### L 501.5200, L500.2500, L100.0100, L501.2300 ####[facility] [address] [place], [address] Magnesiumon 06-10-2024 Magnesium [Mass/Vol] 2.2 mg/dL Normal 1.6-2.6 [facility] Comment on above: Performed By: #### L 501.5200, L500.2500, L100.0100, L501.2300 ####[facility] [address] [place], [address] Phosphoruson 06-10-2024 Phosphate [Mass/Vol] 2.3 mg/dL Low 2.5-4.9 [facility] Comment on above: Performed By: #### L 501.2300 ####[facility] [address] [place], [address] Phosphate [Mass/Vol] 1.8 mg/dL Low 2.5-4.9 [facility] Comment on above: Performed By: #### L 501.5200, L500.2500, L100.0100, L501.2300 ####[facility] [address] [place], [address] Acetone Serumon 06-09-2024 ACETONE SERUM LARGE Abnormal NEG [facility] Comment on above: Performed By: #### L 501.6900 ####[facility] [address] [place], [address] Basic Metabolic Profile (BMP )on 06-09-2024 BUN/CRE 12.1 RATIO Normal 10-20 [facility] Comment on above: Performed By: #### L 500.2500 ####[facility] [address] [place], [address] CA,Total 8.0 mg/dL Low 8.5-10.1 [facility] Comment on above: Performed By: #### L 500.2500 ####[facility] [address] [place], [address] Chloride [Moles/Vol] 103 mmol/L Normal 98-107 [facility] Comment on above: Performed By: #### L 500.2500 ####[facility] [address] [place], [address] CO2 [Moles/Vol] 21.0 mmol/L Normal 21.0-32.0 [facility] Comment on above: Performed By: #### L 500.2500 ####[facility] [address] [place], [address] Creatinine [Mass/Vol] 0.74 mg/dL Normal 0.55-1.02 [facility] Comment on above: Result Comment: The validity of the calculated GFR GFRAA in patients over70 years has not been determined. Clinical correlation isessential. Performed By: #### L 500.2500 ####[facility] [address] [place], [address] ECRCL 117.23 ml/min Normal [facility] Comment on above: Performed By: #### L 500.2500 ####[facility] [address] [place], [address] EST GFR - AA 118 mL/min Normal >60 [facility] Comment on above: Result Comment: Afri can Beninese GFR Calc Performed By: #### L 500.2500 ####[facility] [address] [place], [address] GAP 12 Normal 5-15 [facility] Comment on above: Performed By: #### L 500.2500 ####[facility] [address] [place], [address] GFR/1.73 sq M.predicted among non-blacks MDRD (S/P/Bld) [Vol rate/Area] 98 mL/min/{1.73_m2} Normal >60 [facility] Comment on above: Result Comment: Non- GFR Calc Performed By: #### L 500.2500 ####[facility] [address] [place], [address] Glucose [Mass/Vol] 351 mg/dL High 74-106 [facility] Comment on above: Result Comment: Gluc ose result greater than or equal to 200 mg/dLsuggests DIABETES MELLITUS per A.D.A. criteria. Performed By: #### L 500.2500 ####[facility] [address] [place], [address] Potassium [Moles/Vol] 3.4 mmol/L Low 3.5-5.1 [facility] Comment on above: Performed By: #### L 500.2500 ####[facility] [address] [place], [address] Sodium [Moles/Vol] 136 mmol/L Normal 136-145 [facility] Comment on above: Performed By: #### L 500.2500 ####[facility] [address] [place], [address] Urea nitrogen [Mass/Vol] 9 mg/dL Normal 7-18 [facility] Comment on above: Performed By: #### L 500.2500 ####[facility] [address] [place], [address] BUN Normal 7-18 [facility] Comment on above: Result Comment: Canc elled via OM: MD Ordered Performed By: #### L 500.2500 ####[facility] [address] [place], [address] Order Comment: Call MD with results STAT BUN/CRE Normal 10-20 [facility] Comment on above: Result Comment: Canc elled via OM: MD Ordered Performed By: #### L 500.2500 ####[facility] [address] [place], [address] Order Comment: Call MD with results STAT CA,Total Normal 8.5-10.1 [facility] Comment on above: Result Comment: Canc elled via OM: MD Ordered Performed By: #### L 500.2500 ####[facility] [address] [place], [address] Order Comment: Call MD with results STAT CL Normal 98-107 [facility] Comment on above: Result Comment: Canc elled via OM: MD Ordered Performed By: #### L 500.2500 ####[facility] [address] [place], [address] Order Comment: Call MD with results STAT CO2 Normal 21.0-32.0 [facility] Comment on above: Result Comment: Canc elled via OM: MD Ordered Performed By: #### L 500.2500 ####[facility] [address] [place], [address] Order Comment: Call MD with results STAT CREAT,SERUM Normal 0.55-1.02 [facility] Comment on above: Result Comment: Canc elled via OM: MD Ordered Performed By: #### L 500.2500 ####[facility] [address] [place], [address] Order Comment: Call MD with results STAT EST GFR Normal >60 [facility] Comment on above: Result Comment: Canc elled via OM: MD Ordered Performed By: #### L 500.2500 ####[facility] [address] [place], [address] Order Comment: Call MD with results STAT EST GFR - AA Normal >60 [facility] Comment on above: Result Comment: Canc elled via OM: MD Ordered Performed By: #### L 500.2500 ####[facility] [address] [place], [address] Order Comment: Call MD with results STAT GAP Normal 5-15 [facility] Comment on above: Result Comment: Canc elled via OM: MD Ordered Performed By: #### L 500.2500 ####[facility] [address] [place], [address] Order Comment: Call MD with results STAT GLU Normal 74-106 [facility] Comment on above: Result Comment: Canc elled via OM: MD Ordered Performed By: #### L 500.2500 ####[facility] [address] [place], [address] Order Comment: Call MD with results STAT Potassium Normal 3.5-5.1 [facility] Comment on above: Result Comment: Canc elled via OM: MD Ordered Performed By: #### L 500.2500 ####[facility] [address] [place], [address] Order Comment: Call MD with results STAT Basic Metabolic Profile (BMP) Normal 136-145 [facility] Comment on above: Result Comment: Canc elled via OM: MD Ordered Performed By: #### L 500.2500 ####[facility] [address] [place], [address] Order Comment: Call MD with results STAT BUN Normal 7-18 [facility] Comment on above: Order Comment: Call MD with results STAT Result Comment: NOT COLLECTED. Performed By: #### L 500.2500 ####[facility] [address] [place], [address] BUN/CRE Normal 10-20 [facility] Comment on above: Order Comment: Call MD with results STAT Result Comment: NOT COLLECTED. Performed By: #### L 500.2500 ####[facility] [address] [place], [address] CA,Total Normal 8.5-10.1 [facility] Comment on above: Order Comment: Call MD with results STAT Result Comment: NOT COLLECTED. Performed By: #### L 500.2500 ####[facility] [address] [place], [address] CL Normal 98-107 [facility] Comment on above: Order Comment: Call MD with results STAT Result Comment: NOT COLLECTED. Performed By: #### L 500.2500 ####[facility] [address] [place], [address] CO2 Normal 21.0-32.0 [facility] Comment on above: Order Comment: Call MD with results STAT Result Comment: NOT COLLECTED. Performed By: #### L 500.2500 ####[facility] [address] [place], [address] CREAT,SERUM Normal 0.55-1.02 [facility] Comment on above: Order Comment: Call MD with results STAT Result Comment: NOT COLLECTED. Performed By: #### L 500.2500 ####[facility] [address] [place], [address] EST GFR Normal >60 [facility] Comment on above: Order Comment: Call MD with results STAT Result Comment: NOT COLLECTED. Performed By: #### L 500.2500 ####[facility] [address] [place], [address] EST GFR - AA Normal >60 [facility] Comment on above: Order Comment: Call MD with results STAT Result Comment: NOT COLLECTED. Performed By: #### L 500.2500 ####[facility] [address] [place], [address] GAP Normal 5-15 [facility] Comment on above: Order Comment: Call MD with results STAT Result Comment: NOT COLLECTED. Performed By: #### L 500.2500 ####[facility] [address] [place], [address] GLU Normal 74-106 [facility] Comment on above: Order Comment: Call MD with results STAT Result Comment: NOT COLLECTED. Performed By: #### L 500.2500 ####[facility] [address] [place], [address] Potassium Normal 3.5-5.1 [facility] Comment on above: Order Comment: Call MD with results STAT Result Comment: NOT COLLECTED. Performed By: #### L 500.2500 ####[facility] [address] [place], [address] Basic Metabolic Profile (BMP) Normal 136-145 [facility] Comment on above: Order Comment: Call MD with results STAT Result Comment: NOT COLLECTED. Performed By: #### L 500.2500 ####[facility] [address] [place], [address] Bedside Glucoseon 06-09-2024 FINGERSTICK GLU 322 mg/dL High 74-106 [facility] Comment on above: Result Comment: EDGAR GEMENT OF PATIENT CARE PER NURSING PROTOCOL Performed By: #### L 501.080 ####[facility] [address] [place], [address] FINGERSTICK GLU 354 mg/dL High 74-106 [facility] Comment on above: Result Comment: EDGAR GEMENT OF PATIENT CARE PER NURSING PROTOCOL Performed By: #### L 501.080 ####[facility] [address] [place], [address] FINGERSTICK GLU 146 mg/dL High 74-106 [facility] Comment on above: Result Comment: EDGAR GEMENT OF PATIENT CARE PER NURSING PROTOCOL Performed By: #### L 501.080 ####[facility] [address] [place], [address] FINGERSTICK GLU 51 mg/dL Low 74-106 [facility] Comment on above: Result Comment: EDGAR GEMENT OF PATIENT CARE PER NURSING PROTOCOL Performed By: #### L 501.080 ####[facility] [address] [place], [address] FINGERSTICK GLU 72 mg/dL Low 74-106 [facility] Comment on above: Result Comment: EDGAR GEMENT OF PATIENT CARE PER NURSING PROTOCOL Performed By: #### L 501.080 ####[facility] [address] [place], [address] FINGERSTICK GLU 127 mg/dL High 74-106 [facility] Comment on above: Result Comment: EDGAR GEMENT OF PATIENT CARE PER NURSING PROTOCOL Performed By: #### L 501.080 ####[facility] [address] [place], [address] FINGERSTICK GLU 128 mg/dL High 74-106 [facility] Comment on above: Result Comment: EDGAR GEMENT OF PATIENT CARE PER NURSING PROTOCOL Performed By: #### L 501.080 ####[facility] [address] [place], [address] FINGERSTICK GLU 135 mg/dL High 74-106 [facility] Comment on above: Result Comment: EDGAR GEMENT OF PATIENT CARE PER NURSING PROTOCOL Performed By: #### L 501.080 ####[facility] [address] [place], [address] FINGERSTICK GLU 127 mg/dL High 74-106 [facility] Comment on above: Result Comment: EDGAR GEMENT OF PATIENT CARE PER NURSING PROTOCOL Performed By: #### L 501.080 ####[facility] [address] [place], [address] FINGERSTICK GLU 131 mg/dL High 74-106 [facility] Comment on above: Result Comment: EDGAR GEMENT OF PATIENT CARE PER NURSING PROTOCOL Performed By: #### L 501.080 ####[facility] [address] [place], [address] FINGERSTICK GLU 136 mg/dL High 74-106 [facility] Comment on above: Result Comment: EDGAR GEMENT OF PATIENT CARE PER NURSING PROTOCOL Performed By: #### L 501.080 ####[facility] [address] [place], [address] FINGERSTICK GLU 170 mg/dL High -106 [facility] Comment on above: Result Comment: EDGAR GEMENT OF PATIENT CARE PER NURSING PROTOCOL Performed By: #### L 501.080 ####[facility] [address] [place], [address] FINGERSTICK GLU 206 mg/dL High 74-106 [facility] Comment on above: Result Comment: EDGAR GEMENT OF PATIENT CARE PER NURSING PROTOCOL Performed By: #### L 501.080 ####[facility] [address] [place], [address] CBC W/Diff, Automatedon 10-1 -2023 Absolute Lymph 1.62 X10 3/uL Normal 0.83-4.51 [facility] Comment on above: Performed By: #### L 501.2300, L100.0100 ####[facility] [address] [place], [address] Absolute Neut 14.1 X10 3/uL High 2.0-7.7 [facility] Comment on above: Performed By: #### L 501.2300, L100.0100 ####[facility] [address] [place], [address] Basophils/100 WBC (Bld) 0.2 % Normal 0-1 [facility] Comment on above: Performed By: #### L 501.2300, L100.0100 ####[facility] [address] [place], [address] Eosinophils/100 WBC (Bld) 0.1 % Normal 0-5 [facility] Comment on above: Performed By: #### L 501.2300, L100.0100 ####[facility] [address] [place], [address] Erythrocyte distribution width (RBC) [Ratio] 12.9 % Normal 11.6-14.6 [facility] Comment on above: Performed By: #### L 501.2300, L100.0100 ####[facility] [address] [place], [address] Hematocrit (Bld) [Volume fraction] 34.0 % Low 37-47 [facility] Comment on above: Performed By: #### L 501.2300, L100.0100 ####[facility] [address] [place], [address] Hemoglobin (Bld) [Mass/Vol] 11.1 g/dL Low 12.0-15.0 [facility] Comment on above: Performed By: #### L 501.2300, L100.0100 ####[facility] [address] [place], [address] IG% 0.800 Normal 0.0-0.9 [facility] Comment on above: Result Comment: IG% - Immature Granulocytes (promyelocytes, myelocytes andmetamyelocytes) > 1% indicates that a LEFT SHIFT is Present. Performed By: #### L 501.2300, L100.0100 ####[facility] [address] [place], [address] Lymphocytes/100 WBC (Bld) 9.7 % Low 19-41 [facility] Comment on above: Performed By: #### L 501.2300, L100.0100 ####[facility] [address] [place], [address] MCH (RBC) [Entitic mass] 29.1 pg Normal 27.0-32.0 [facility] Comment on above: Performed By: #### L 501.2300, L100.0100 ####[facility] [address] [place], [address] MCHC (RBC) [Mass/Vol] 32.6 g/dL Normal 32-36 [facility] Comment on above: Performed By: #### L 501.2300, L100.0100 ####[facility] [address] [place], [address] MCV (RBC) [Entitic vol] 89.2 fL Normal 81-99 [facility] Comment on above: Performed By: #### L 501.2300, L100.0100 ####[facility] [address] [place], [address] Monocytes/100 WBC (Bld) 5.1 % Normal 0-10 [facility] Comment on above: Performed By: #### L 501.2300, L100.0100 ####[facility] [address] [place], [address] Neutrophils/100 WBC (Bld) 84.1 % High 47-70 [facility] Comment on above: Performed By: #### L 501.2300, L100.0100 ####[facility] [address] [place], [address] Nucleated RBC (Bld) [#/Vol] 0 10*3/uL Normal 0-5 [facility] Comment on above: Performed By: #### L 501.2300, L100.0100 ####[facility] [address] [place], [address] Platelet mean volume (Bld) [Entitic vol] 12.0 fL Normal 6.2-12.0 [facility] Comment on above: Performed By: #### L 501.2300, L100.0100 ####[facility] [address] [place], [address] Platelets (Bld) [#/Vol] 147 10*3/uL Low 150-450 [facility] Comment on above: Performed By: #### L 501.2300, L100.0100 ####[facility] [address] [place], [address] RBC (Bld) [#/Vol] 3.81 10*6/uL Low 4.2-5.4 [facility] Comment on above: Performed By: #### L 501.2300, L100.0100 ####[facility] [address] [place], [address] RDW SD 42.1 fl Normal 35.1-43.9 [facility] Comment on above: Performed By: #### L 501.2300, L100.0100 ####[facility] [address] [place], [address] WBC (Bld) [#/Vol] 16.7 10*3/uL High 4.4-11.0 [facility] Comment on above: Performed By: #### L 501.2300, L100.0100 ####[facility] [address] [place], [address] Comprehensive Metabolic Prof ilon 06-09-2024 Albumin [Mass/Vol] 3.0 g/dL Low 3.2-5.0 [facility] Comment on above: Order Comment: Call MD with results STAT Performed By: #### L 501.5200, L500.4050 ####[facility] [address] [place], [address] Albumin/Globulin [Mass ratio] 1.1 {ratio} Normal 0.9-2.4 [facility] Comment on above: Order Comment: Call MD with results STAT Performed By: #### L 501.5200, L500.4050 ####[facility] [address] [place], [address] ALK P 68 U/L Normal 45-117 [facility] Comment on above: Order Comment: Call MD with results STAT Performed By: #### L 501.5200, L500.4050 ####[facility] [address] [place], [address] ALT [Catalytic activity/Vol] 22 U/L Normal 13-56 [facility] Comment on above: Order Comment: Call MD with results STAT Performed By: #### L 501.5200, L500.4050 ####[facility] [address] [place], [address] AST [Catalytic activity/Vol] 12 U/L Low 15-37 [facility] Comment on above: Order Comment: Call MD with results STAT Performed By: #### L 501.5200, L500.4050 ####[facility] [address] [place], [address] Bilirubin [Mass/Vol] 0.80 mg/dL Normal 0.20-1.00 [facility] Comment on above: Order Comment: Call MD with results STAT Result Comment: For patients on eltrombopag therapy, use of Dimension [place] TBIL is not recommended. Performed By: #### L 501.5200, L500.4050 ####[facility] [address] [place], [address] BUN/CRE 16.7 RATIO Normal 10-20 [facility] Comment on above: Order Comment: Call MD with results STAT Performed By: #### L 501.5200, L500.4050 ####[facility] [address] [place], [address] CA,Total 7.7 mg/dL Low 8.5-10.1 [facility] Comment on above: Order Comment: Call MD with results STAT Performed By: #### L 501.5200, L500.4050 ####[facility] [address] [place], [address] Chloride [Moles/Vol] 111 mmol/L High 98-107 [facility] Comment on above: Order Comment: Call MD with results STAT Performed By: #### L 501.5200, L500.4050 ####[facility] [address] [place], [address] CO2 [Moles/Vol] 23.0 mmol/L Normal 21.0-32.0 [facility] Comment on above: Order Comment: Call MD with results STAT Performed By: #### L 501.5200, L500.4050 ####[facility] [address] [place], [address] Creatinine [Mass/Vol] 0.60 mg/dL Normal 0.55-1.02 [facility] Comment on above: Order Comment: Call MD with results STAT Result Comment: The validity of the calculated GFR GFRAA in patients over70 years has not been determined. Clinical correlation isessential. Performed By: #### L 501.5200, L500.4050 ####[facility] [address] [place], [address] ECRCL 144.58 ml/min Normal [facility] Comment on above: Order Comment: Call MD with results STAT Performed By: #### L 501.5200, L500.4050 ####[facility] [address] [place], [address] EST GFR - AA 151 mL/min Normal >60 [facility] Comment on above: Order Comment: Call MD with results STAT Result Comment: Afri can Beninese GFR Calc Performed By: #### L 501.5200, L500.4050 ####[facility] [address] [place], [address] GAP 6 Normal 5-15 [facility] Comment on above: Order Comment: Call MD with results STAT Performed By: #### L 501.5200, L500.4050 ####[facility] [address] [place], [address] GFR/1.73 sq M.predicted among non-blacks MDRD (S/P/Bld) [Vol rate/Area] 125 mL/min/{1.73_m2} Normal >60 [facility] Comment on above: Order Comment: Call MD with results STAT Result Comment: Non- GFR Calc Performed By: #### L 501.5200, L500.4050 ####[facility] [address] [place], [address] Globulin (S) [Mass/Vol] 2.7 g/dL Normal 2.2-4.2 [facility] Comment on above: Order Comment: Call MD with results STAT Performed By: #### L 501.5200, L500.4050 ####[facility] [address] [place], [address] Glucose [Mass/Vol] 142 mg/dL High 74-106 [facility] Comment on above: Order Comment: Call MD with results STAT Result Comment: Fast ing Glucose result greater than or equal to 126 mg/dLsuggests DIABETES MELLITUS per A.D.A. criteria. Performed By: #### L 501.5200, L500.4050 ####[facility] [address] [place], [address] Potassium [Moles/Vol] 3.0 mmol/L Low 3.5-5.1 [facility] Comment on above: Order Comment: Call MD with results STAT Performed By: #### L 501.5200, L500.4050 ####[facility] [address] [place], [address] Sodium [Moles/Vol] 139 mmol/L Normal 136-145 [facility] Comment on above: Order Comment: Call MD with results STAT Performed By: #### L 501.5200, L500.4050 ####[facility] [address] [place], [address] T PROT 5.7 g/dL Low 6.4-8.2 [facility] Comment on above: Order Comment: Call MD with results STAT Performed By: #### L 501.5200, L500.4050 ####[facility] [address] [place], [address] Urea nitrogen [Mass/Vol] 10 mg/dL Normal 7-18 [facility] Comment on above: Order Comment: Call MD with results STAT Performed By: #### L 501.5200, L500.4050 ####[facility] [address] [place], [address] Magnesiumon 06-09-2024 Magnesium [Mass/Vol] 2.0 mg/dL Normal 1.6-2.6 [facility] Comment on above: Order Comment: Call MD with results STAT Performed By: #### L 501.5200, L500.4050 ####[facility] [address] [place], [address] Phosphoruson 06-09-2024 Phosphate [Mass/Vol] 1.2 mg/dL Low 2.5-4.9 [facility] Comment on above: Performed By: #### L 501.2300, L100.0100 ####[facility] [address] [place], [address] Acetone Serumon 06-08-2024 ACETONE SERUM SMALL Abnormal NEG [facility] Comment on above: Order Comment: Comme nts: If not done in the ED Performed By: #### L 501.6900 ####[facility] [address] [place], [address] Basic Metabolic Profile (BMP )on 06-08-2024 BUN Normal 7-18 [facility] Comment on above: Order Comment: Call MD with results STAT Result Comment: NOT COLLECTED. Performed By: #### L 500.2500 ####[facility] [address] [place], [address] BUN/CRE Normal 10-20 [facility] Comment on above: Order Comment: Call MD with results STAT Result Comment: NOT COLLECTED. Performed By: #### L 500.2500 ####[facility] [address] [place], [address] CA,Total Normal 8.5-10.1 [facility] Comment on above: Order Comment: Call MD with results STAT Result Comment: NOT COLLECTED. Performed By: #### L 500.2500 ####[facility] [address] [place], [address] CL Normal 98-107 [facility] Comment on above: Order Comment: Call MD with results STAT Result Comment: NOT COLLECTED. Performed By: #### L 500.2500 ####[facility] [address] [place], [address] CO2 Normal 21.0-32.0 [facility] Comment on above: Order Comment: Call MD with results STAT Result Comment: NOT COLLECTED. Performed By: #### L 500.2500 ####[facility] [address] [place], [address] CREAT,SERUM Normal 0.55-1.02 [facility] Comment on above: Order Comment: Call MD with results STAT Result Comment: NOT COLLECTED. Performed By: #### L 500.2500 ####[facility] [address] [place], [address] EST GFR Normal >60 [facility] Comment on above: Order Comment: Call MD with results STAT Result Comment: NOT COLLECTED. Performed By: #### L 500.2500 ####[facility] [address] [place], [address] EST GFR - AA Normal >60 [facility] Comment on above: Order Comment: Call MD with results STAT Result Comment: NOT COLLECTED. Performed By: #### L 500.2500 ####[facility] [address] [place], [address] GAP Normal 5-15 [facility] Comment on above: Order Comment: Call MD with results STAT Result Comment: NOT COLLECTED. Performed By: #### L 500.2500 ####[facility] [address] [place], [address] GLU Normal 74-106 [facility] Comment on above: Order Comment: Call MD with results STAT Result Comment: NOT COLLECTED. Performed By: #### L 500.2500 ####[facility] [address] [place], [address] Potassium Normal 3.5-5.1 [facility] Comment on above: Order Comment: Call MD with results STAT Result Comment: NOT COLLECTED. Performed By: #### L 500.2500 ####[facility] [address] [place], [address] Basic Metabolic Profile (BMP) Normal 136-145 [facility] Comment on above: Order Comment: Call MD with results STAT Result Comment: NOT COLLECTED. Performed By: #### L 500.2500 ####[facility] [address] [place], [address] BUN Normal 7-18 [facility] Comment on above: Order Comment: Call MD with results STAT Result Comment: NOT COLLECTED. Performed By: #### L 500.2500 ####[facility] [address] [place], [address] BUN/CRE Normal 10-20 [facility] Comment on above: Order Comment: Call MD with results STAT Result Comment: NOT COLLECTED. Performed By: #### L 500.2500 ####[facility] [address] [place], [address] CA,Total Normal 8.5-10.1 [facility] Comment on above: Order Comment: Call MD with results STAT Result Comment: NOT COLLECTED. Performed By: #### L 500.2500 ####[facility] [address] [place], [address] CL Normal 98-107 [facility] Comment on above: Order Comment: Call MD with results STAT Result Comment: NOT COLLECTED. Performed By: #### L 500.2500 ####[facility] [address] [place], [address] CO2 Normal 21.0-32.0 [facility] Comment on above: Order Comment: Call MD with results STAT Result Comment: NOT COLLECTED. Performed By: #### L 500.2500 ####[facility] [address] [place], [address] CREAT,SERUM Normal 0.55-1.02 [facility] Comment on above: Order Comment: Call MD with results STAT Result Comment: NOT COLLECTED. Performed By: #### L 500.2500 ####[facility] [address] [place], [address] EST GFR Normal >60 [facility] Comment on above: Order Comment: Call MD with results STAT Result Comment: NOT COLLECTED. Performed By: #### L 500.2500 ####[facility] [address] [place], [address] EST GFR - AA Normal >60 [facility] Comment on above: Order Comment: Call MD with results STAT Result Comment: NOT COLLECTED. Performed By: #### L 500.2500 ####[facility] [address] [place], [address] GAP Normal 5-15 [facility] Comment on above: Order Comment: Call MD with results STAT Result Comment: NOT COLLECTED. Performed By: #### L 500.2500 ####[facility] [address] [place], [address] GLU Normal 74-106 [facility] Comment on above: Order Comment: Call MD with results STAT Result Comment: NOT COLLECTED. Performed By: #### L 500.2500 ####[facility] [address] [place], [address] Potassium Normal 3.5-5.1 [facility] Comment on above: Order Comment: Call MD with results STAT Result Comment: NOT COLLECTED. Performed By: #### L 500.2500 ####[facility] [address] [place], [address] Basic Metabolic Profile (BMP) Normal 136-145 [facility] Comment on above: Order Comment: Call MD with results STAT Result Comment: NOT COLLECTED. Performed By: #### L 500.2500 ####[facility] [address] [place], [address] BUN/CRE 19.6 RATIO Normal 10-20 [facility] Comment on above: Performed By: #### L 500.2500 ####[facility] [address] [place], [address] CA,Total 8.0 mg/dL Low 8.5-10.1 [facility] Comment on above: Performed By: #### L 500.2500 ####[facility] [address] [place], [address] Chloride [Moles/Vol] 112 mmol/L High 98-107 [facility] Comment on above: Performed By: #### L 500.2500 ####[facility] [address] [place], [address] CO2 [Moles/Vol] 18.0 mmol/L Low 21.0-32.0 [facility] Comment on above: Performed By: #### L 500.2500 ####[facility] [address] [place], [address] Creatinine [Mass/Vol] 0.87 mg/dL Normal 0.55-1.02 [facility] Comment on above: Result Comment: The validity of the calculated GFR GFRAA in patients over70 years has not been determined. Clinical correlation isessential. Performed By: #### L 500.2500 ####[facility] [address] [place], [address] ECRCL 99.71 ml/min Normal [facility] Comment on above: Performed By: #### L 500.2500 ####[facility] [address] [facility] [address] EST GFR - AA 99 mL/min Normal >60 [facility] Comment on above: Result Comment: Afri can Beninese GFR Calc Performed By: #### L 500.2500 ####[facility] [address] [facility] [address] GAP 10 Normal 5-15 [facility] Comment on above: Performed By: #### L 500.2500 ####[facility] [address] [facility] [address] GFR/1.73 sq M.predicted among non-blacks MDRD (S/P/Bld) [Vol rate/Area] 82 mL/min/{1.73_m2} Normal >60 [facility] Comment on above: Result Comment: Non- GFR Calc Performed By: #### L 500.2500 ####[facility] [address] [place] [id number] Glucose [Mass/Vol] 189 mg/dL High 74-106 [facility] Comment on above: Result Comment: Fast ing Glucose result greater than or equal to 126 mg/dLsuggests DIABETES MELLITUS per A.D.A. criteria. Performed By: #### L 500.2500 ####[facility] [address] [place], [address] Potassium [Moles/Vol] 3.8 mmol/L Normal 3.5-5.1 [facility] Comment on above: Performed By: #### L 500.2500 ####[facility] [address] [place], [address] Sodium [Moles/Vol] 140 mmol/L Normal 136-145 [facility] Comment on above: Performed By: #### L 500.2500 ####[facility] [address] [place], [address] Urea nitrogen [Mass/Vol] 17 mg/dL Normal 7-18 [facility] Comment on above: Performed By: #### L 500.2500 ####[facility] [address] [place], [address] BUN Normal 7-18 [facility] Comment on above: Order Comment: Call MD with results STAT Result Comment: NOT COLLECTED. Performed By: #### L 500.2500 ####[facility] [address] [place], [address] BUN/CRE Normal 10-20 [facility] Comment on above: Order Comment: Call MD with results STAT Result Comment: NOT COLLECTED. Performed By: #### L 500.2500 ####[facility] [address] [place], [address] CA,Total Normal 8.5-10.1 [facility] Comment on above: Order Comment: Call MD with results STAT Result Comment: NOT COLLECTED. Performed By: #### L 500.2500 ####[facility] [address] [place], [address] CL Normal 98-107 [facility] Comment on above: Order Comment: Call MD with results STAT Result Comment: NOT COLLECTED. Performed By: #### L 500.2500 ####[facility] [address] [place], [address] CO2 Normal 21.0-32.0 [facility] Comment on above: Order Comment: Call MD with results STAT Result Comment: NOT COLLECTED. Performed By: #### L 500.2500 ####[facility] [address] [place], [address] CREAT,SERUM Normal 0.55-1.02 [facility] Comment on above: Order Comment: Call MD with results STAT Result Comment: NOT COLLECTED. Performed By: #### L 500.2500 ####[facility] [address] [place], [address] EST GFR Normal >60 [facility] Comment on above: Order Comment: Call MD with results STAT Result Comment: NOT COLLECTED. Performed By: #### L 500.2500 ####[facility] [address] [place], [address] EST GFR - AA Normal >60 [facility] Comment on above: Order Comment: Call MD with results STAT Result Comment: NOT COLLECTED. Performed By: #### L 500.2500 ####[facility] [address] [place], [address] GAP Normal 5-15 [facility] Comment on above: Order Comment: Call MD with results STAT Result Comment: NOT COLLECTED. Performed By: #### L 500.2500 ####[facility] [address] [place], [address] GLU Normal 74-106 [facility] [facility] Comment on above: Order Comment: Call MD with results STAT Result Comment: NOT COLLECTED. Performed By: #### L 500.2500 ####[facility] [address] [place], [address] Potassium Normal 3.5-5.1 [facility] Comment on above: Order Comment: Call MD with results STAT Result Comment: NOT COLLECTED. Performed By: #### L 500.2500 ####[facility] [address] [place], [address] Basic Metabolic Profile (BMP) Normal 136-145 [facility] Comment on above: Order Comment: Call MD with results STAT Result Comment: NOT COLLECTED. Performed By: #### L 500.2500 ####[facility] [address] [place], [address] BUN/CRE 19.6 RATIO Normal 10-20 [facility] Comment on above: Order Comment: Call MD with results STAT Performed By: #### L 500.2500 ####[facility] [address] [place], [address] CA,Total 7.9 mg/dL Low 8.5-10.1 [facility] Comment on above: Order Comment: Call MD with results STAT Performed By: #### L 500.2500 ####[facility] [address] [place], [address] Chloride [Moles/Vol] 112 mmol/L High 98-107 [facility] Comment on above: Order Comment: Call MD with results STAT Performed By: #### L 500.2500 ####[facility] [address] [place], [address] CO2 [Moles/Vol] 17.0 mmol/L Low 21.0-32.0 [facility] Comment on above: Order Comment: Call MD with results STAT Performed By: #### L 500.2500 ####[facility] [address] [place], [address] Creatinine [Mass/Vol] 1.02 mg/dL Normal 0.55-1.02 [facility] Comment on above: Order Comment: Call MD with results STAT Result Comment: The validity of the calculated GFR GFRAA in patients over70 years has not been determined. Clinical correlation isessential. Performed By: #### L 500.2500 ####[facility] [address] [place], [address] ECRCL 82.09 ml/min Normal [facility] Comment on above: Order Comment: Call MD with results STAT Performed By: #### L 500.2500 ####[facility] [address] [place], [address] EST GFR - AA 82 mL/min Normal >60 [facility] Comment on above: Order Comment: Call MD with results STAT Result Comment: Afri can Beninese GFR Calc Performed By: #### L 500.2500 ####[facility] [address], [address] GAP 10 Normal 5-15 [facility] Comment on above: Order Comment: Call MD with results STAT Performed By: #### L 500.2500 ####[facility] [address], [address] GFR/1.73 sq M.predicted among non-blacks MDRD (S/P/Bld) [Vol rate/Area] 68 mL/min/{1.73_m2} Normal >60 [facility] Comment on above: Order Comment: Call MD with results STAT Result Comment: Non- GFR Calc Performed By: #### L 500.2500 ####[facility] [address] [place], [address] Glucose [Mass/Vol] 168 mg/dL High 74-106 [facility] Comment on above: Order Comment: Call MD with results STAT Result Comment: Fast ing Glucose result greater than or equal to 126 mg/dLsuggests DIABETES MELLITUS per A.D.A. criteria. Performed By: #### L 500.2500 ####[facility] [address] [place], [address] Potassium [Moles/Vol] 3.7 mmol/L Normal 3.5-5.1 [facility] Comment on above: Order Comment: Call MD with results STAT Performed By: #### L 500.2500 ####[facility] [address] [place], [address] Sodium [Moles/Vol] 139 mmol/L Normal 136-145 [facility] Comment on above: Order Comment: Call MD with results STAT Performed By: #### L 500.2500 ####[facility] [address] [place], [address] Urea nitrogen [Mass/Vol] 20 mg/dL High 7-18 [facility] Comment on above: Order Comment: Call MD with results STAT Performed By: #### L 500.2500 ####[facility] [address] [place], [address] Bedside Glucoseon 06-08-2024 FINGERSTICK GLU 191 mg/dL High 74-106 [facility] Comment on above: Result Comment: EDGAR GEMENT OF PATIENT CARE PER NURSING PROTOCOL Performed By: #### L 501.080 ####[facility] [address] [place], [address] FINGERSTICK GLU 198 mg/dL High 74-106 [facility] Comment on above: Result Comment: EDGAR GEMENT OF PATIENT CARE PER NURSING PROTOCOL Performed By: #### L 501.080 ####[facility] [address] [place], [address] FINGERSTICK GLU 247 mg/dL High 74-106 [facility] Comment on above: Result Comment: EDGAR GEMENT OF PATIENT CARE PER NURSING PROTOCOL Performed By: #### L 501.080 ####[facility] [address] [place], [address] FINGERSTICK GLU 252 mg/dL High 74-106 [facility] Comment on above: Result Comment: EDGAR GEMENT OF PATIENT CARE PER NURSING PROTOCOL Performed By: #### L 501.080 ####[facility] [address] [place], [address] FINGERSTICK GLU 205 mg/dL High 74-106 [facility] Comment on above: Result Comment: EDGAR GEMENT OF PATIENT CARE PER NURSING PROTOCOL Performed By: #### L 501.080 ####[facility] [address] [place], [address] FINGERSTICK GLU 151 mg/dL High 74-106 [facility] Comment on above: Result Comment: EDGAR GEMENT OF PATIENT CARE PER NURSING PROTOCOL Performed By: #### L 501.080 ####[facility] [address] [place], [address] FINGERSTICK GLU 176 mg/dL High 74-106 [facility] Comment on above: Result Comment: EDGAR GEMENT OF PATIENT CARE PER NURSING PROTOCOL Performed By: #### L 501.080 ####[facility] [address] [place], [address] FINGERSTICK GLU 121 mg/dL High 74-106 [facility] Comment on above: Result Comment: EDGAR GEMENT OF PATIENT CARE PER NURSING PROTOCOL Performed By: #### L 501.080 ####[facility] [address] [place], [address] FINGERSTICK GLU 108 mg/dL High 74-106 [facility] Comment on above: Result Comment: EDGAR GEMENT OF PATIENT CARE PER NURSING PROTOCOL Performed By: #### L 501.080 ####[facility] [address] [place], [address] FINGERSTICK GLU 114 mg/dL High 74-106 [facility] Comment on above: Result Comment: EDGAR GEMENT OF PATIENT CARE PER NURSING PROTOCOL Performed By: #### L 501.080 ####[facility] [address] [place], [address] FINGERSTICK GLU 236 mg/dL High 74-106 [facility] Comment on above: Result Comment: EDGAR GEMENT OF PATIENT CARE PER NURSING PROTOCOL Performed By: #### L 501.080 ####[facility] [address] [place], [address] FINGERSTICK GLU 251 mg/dL High 74-106 [facility] Comment on above: Result Comment: EDGAR GEMENT OF PATIENT CARE PER NURSING PROTOCOL Performed By: #### L 501.080 ####[facility] [address] [place], [address] FINGERSTICK GLU 261 mg/dL High 74-106 [facility] Comment on above: Result Comment: EDGAR GEMENT OF PATIENT CARE PER NURSING PROTOCOL Performed By: #### L 501.080 ####[facility] [address] [place], [address] FINGERSTICK GLU 402 mg/dL High 74-106 [facility] Comment on above: Result Comment: EDGAR GEMENT OF PATIENT CARE PER NURSING PROTOCOL Performed By: #### L 501.080 ####[facility] [address] [place], [address] FINGERSTICK GLU 324 mg/dL High 74-106 [facility] Comment on above: Result Comment: EDGAR GEMENT OF PATIENT CARE PER NURSING PROTOCOL Performed By: #### L 501.080 ####[facility] [address] [place], [address] Blood Gases by [facility] 024 GEM TEST Positive Normal [facility] Comment on above: Performed By: #### L 9000.0800 ####[facility] [address] [place], [address] Base excess Calc (Bld) [Moles/Vol] -14 mmol/L Low -2 to +2 [facility] Comment on above: Performed By: #### L 9000.0800 ####[facility] [address] [place], [address] Blood Gas Type ART Normal [facility] Comment on above: Performed By: #### L 9000.0800 ####[facility] [address] [place], [address] CO2 [Moles/Vol] 11 mmol/L Normal [facility] Comment on above: Performed By: #### L 9000.0800 ####[facility] [address] [place], [address] FI02 21.0 Normal [facility] Comment on above: Performed By: #### L 9000.0800 ####[facility] [address] [place], [address] HCO3 (Bld) [Moles/Vol] 10.7 mmol/L Low 22-26 [facility] Comment on above: Performed By: #### L 9000.0800 ####[facility] [address] [place], [address] Mode Not entered [facility] Comment on above: Performed By: #### L 9000.0800 ####[facility] [address] [place], [address] O2 Delivery Dev Room Air [facility] Comment on above: Performed By: #### L 9000.0800 ####[facility] [address] [place], [address] pCO2 17.9 mmHg Invalid Interpretation Code 35-45 [facility] Comment on above: Performed By: #### L 9000.0800 ####[facility] [address] [place], [address] pH (Bld) 7.39 [pH] Normal 7.35-7.45 [facility] Comment on above: Performed By: #### L 9000.0800 ####[facility] [address] [place], [address] PO2 114 mmHG High 75-100 [facility] Comment on above: Performed By: #### L 9000.0800 ####[facility] [address] [place], [address] Read Back By Yes [facility] Comment on above: Performed By: #### L 9000.0800 ####[facility] [address] [place], [address] Results To denia [facility] Comment on above: Performed By: #### L 9000.0800 ####[facility] [address] [place], [address] SITE L Radial Normal [facility] Comment on above: Performed By: #### L 8999.0800 ####[facility] [address] [place], [address] SO2 99 Normal 95-99 [facility] Comment on above: Performed By: #### L 8999.0800 ####[facility] [address] [place], [address] Time Given 09:45:00 Normal [facility] Comment on above: Performed By: #### L 8999.0800 ####[facility] [address] [place], [address] CBC W/Diff, Automatedon 10-1 Absolute Lymph 0.71 X10 3/uL Low 0.83-4.51 [facility] Comment on above: Performed By: #### L 501.5200, L100.0100, L500.4050 ####[facility] [address] [place], [address] Absolute Neut 19.8 X10 3/uL High 2.0-7.7 [facility] Comment on above: Performed By: #### L 501.5200, L100.0100, L500.4050 ####[facility] [address] [place], [address] Basophils/100 WBC (Bld) 0.1 % Normal 0-1 [facility] Comment on above: Performed By: #### L 501.5200, L100.0100, L500.4050 ####[facility] [address] [place], [address] Eosinophils/100 WBC (Bld) 0.0 % Normal 0-5 [facility] Comment on above: Performed By: #### L 501.5200, L100.0100, L500.4050 ####[facility] [address] [place], [address] Erythrocyte distribution width (RBC) [Ratio] 12.9 % Normal 11.6-14.6 [facility] Comment on above: Performed By: #### L 501.5200, L100.0100, L500.4050 ####[facility] [address] [place], [address] Hematocrit (Bld) [Volume fraction] 41.0 % Normal 37-47 [facility] Comment on above: Performed By: #### L 501.5200, L100.0100, L500.4050 ####[facility] [address] [place], [address] Hemoglobin (Bld) [Mass/Vol] 13.2 g/dL Normal 12.0-15.0 [facility] Comment on above: Performed By: #### L 501.5200, L100.0100, L500.4050 ####[facility] [address] [place], [address] IG% 0.900 Normal 0.0-0.9 [facility] Comment on above: Result Comment: IG% - Immature Granulocytes (promyelocytes, myelocytes andmetamyelocytes) > 1% indicates that a LEFT SHIFT is Present. Performed By: #### L 501.5200, L100.0100, L500.4050 ####[facility] [address] [place], [address] Lymphocytes/100 WBC (Bld) 3.3 % Low 19-41 [facility] Comment on above: Performed By: #### L 501.5200, L100.0100, L500.4050 ####[facility] [address] [place], [address] MCH (RBC) [Entitic mass] 29.7 pg Normal 27.0-32.0 [facility] Comment on above: Performed By: #### L 501.5200, L100.0100, L500.4050 ####[facility] [address] [place], [address] MCHC (RBC) [Mass/Vol] 32.2 g/dL Normal 32-36 [facility] Comment on above: Performed By: #### L 501.5200, L100.0100, L500.4050 ####[facility] [address] [place], [address] MCV (RBC) [Entitic vol] 92.1 fL Normal 81-99 [facility] Comment on above: Performed By: #### L 501.5200, L100.0100, L500.4050 ####[facility] [address] [place], [address] Monocytes/100 WBC (Bld) 4.9 % Normal 0-10 [facility] Comment on above: Performed By: #### L 501.5200, L100.0100, L500.4050 ####[facility] [address] [place], [address] Neutrophils/100 WBC (Bld) 90.8 % High 47-70 [facility] Comment on above: Performed By: #### L 501.5200, L100.0100, L500.4050 ####[facility] [address] [place], [address] Nucleated RBC (Bld) [#/Vol] 0 10*3/uL Normal 0-5 [facility] Comment on above: Performed By: #### L 501.5200, L100.0100, L500.4050 ####[facility] [address] [place], [address] Platelet mean volume (Bld) [Entitic vol] 13.6 fL High 6.2-12.0 [facility] Comment on above: Performed By: #### L 501.5200, L100.0100, L500.4050 ####[facility] [address] [place], [address] Platelets (Bld) [#/Vol] 171 10*3/uL Normal 150-450 [facility] Comment on above: Performed By: #### L 501.5200, L100.0100, L500.4050 ####[facility] [address] [place], [address] RBC (Bld) [#/Vol] 4.45 10*6/uL Normal 4.2-5.4 [facility] Comment on above: Performed By: #### L 501.5200, L100.0100, L500.4050 ####[facility] [address] [place], [address] RDW SD 43.6 fl Normal 35.1-43.9 [facility] Comment on above: Performed By: #### L 501.5200, L100.0100, L500.4050 ####[facility] [address] [place], [address] WBC (Bld) [#/Vol] 21.8 10*3/uL High 4.4-11.0 [facility] Comment on above: Performed By: #### L 501.5200, L100.0100, L500.4050 ####[facility] [address] [place], [address] Comprehensive Metabolic Prof ilon 06-08-2024 Albumin [Mass/Vol] 3.9 g/dL Normal 3.2-5.0 [facility] Comment on above: Performed By: #### L 501.5200, L100.0100, L500.4050 ####[facility] [address] [place], [address] Albumin/Globulin [Mass ratio] 1.2 {ratio} Normal 0.9-2.4 [facility] Comment on above: Performed By: #### L 501.5200, L100.0100, L500.4050 ####[facility] [address] [place], [address] ALK P 90 U/L Normal 45-117 [facility] Comment on above: Performed By: #### L 501.5200, L100.0100, L500.4050 ####[facility] [address] [place], [address] ALT [Catalytic activity/Vol] 21 U/L Normal 13-56 [facility] Comment on above: Performed By: #### L 501.5200, L100.0100, L500.4050 ####[facility] [address] [place], [address] AST [Catalytic activity/Vol] 15 U/L Normal 15-37 [facility] Comment on above: Performed By: #### L 501.5200, L100.0100, L500.4050 ####[facility] [address] [place], [address] Bilirubin [Mass/Vol] 1.30 mg/dL High 0.20-1.00 [facility] Comment on above: Result Comment: For patients on eltrombopag therapy, use of Dimension [place] TBIL is not recommended. Performed By: #### L 501.5200, L100.0100, L500.4050 ####[facility] [address] [place], [address] BUN/CRE 22.0 RATIO High 10-20 [facility] Comment on above: Performed By: #### L 501.5200, L100.0100, L500.4050 ####[facility] [address] [place], [address] CA,Total 8.9 mg/dL Normal 8.5-10.1 [facility] Comment on above: Performed By: #### L 501.5200, L100.0100, L500.4050 ####[facility] [address] [place], [address] Chloride [Moles/Vol] 100 mmol/L Normal 98-107 [facility] Comment on above: Performed By: #### L 501.5200, L100.0100, L500.4050 ####[facility] [address] [place], [address] CO2 [Moles/Vol] 12.0 mmol/L Low 21.0-32.0 [facility] Comment on above: Performed By: #### L 501.5200, L100.0100, L500.4050 ####[facility] [address] [place], [address] Creatinine [Mass/Vol] 1.00 mg/dL Normal 0.55-1.02 [facility] Comment on above: Result Comment: The validity of the calculated GFR GFRAA in patients over70 years has not been determined. Clinical correlation isessential. Performed By: #### L 501.5200, L100.0100, L500.4050 ####[facility] [address] [place], [address] ECRCL 83.74 ml/min Normal [facility] Comment on above: Performed By: #### L 501.5200, L100.0100, L500.4050 ####[facility] [address] [place], [address] EST GFR - AA 84 mL/min Normal >60 [facility] Comment on above: Result Comment: Afri can Beninese GFR Calc Performed By: #### L 501.5200, L100.0100, L500.4050 ####[facility] [address] [place], [address] GAP 18 High 5-15 [facility] Comment on above: Performed By: #### L 501.5200, L100.0100, L500.4050 ####[facility] [address] [place], [address] GFR/1.73 sq M.predicted among non-blacks MDRD (S/P/Bld) [Vol rate/Area] 69 mL/min/{1.73_m2} Normal >60 [facility] Comment on above: Result Comment: Non- GFR Calc Performed By: #### L 501.5200, L100.0100, L500.4050 ####[facility] [address] [place], [address] Globulin (S) [Mass/Vol] 3.2 g/dL Normal 2.2-4.2 [facility] Comment on above: Performed By: #### L 501.5200, L100.0100, L500.4050 ####[facility] [address] [place], [address] Glucose [Mass/Vol] 398 mg/dL High 74-106 [facility] Comment on above: Result Comment: Gluc ose result greater than or equal to 200 mg/dLsuggests DIABETES MELLITUS per A.D.A. criteria. Performed By: #### L 501.5200, L100.0100, L500.4050 ####[facility] [address] [place], [address] Potassium [Moles/Vol] 4.2 mmol/L Normal 3.5-5.1 [facility] Comment on above: Performed By: #### L 501.5200, L100.0100, L500.4050 ####[facility] [address] [place], [address] Sodium [Moles/Vol] 131 mmol/L Low 136-145 [facility] Comment on above: Performed By: #### L 501.5200, L100.0100, L500.4050 ####[facility] [address] [place], [address] T PROT 7.1 g/dL Normal 6.4-8.2 [facility] Comment on above: Performed By: #### L 501.5200, L100.0100, L500.4050 ####[facility] [address] [place], [address] Urea nitrogen [Mass/Vol] 22 mg/dL High 7-18 [facility] Comment on above: Performed By: #### L 501.5200, L100.0100, L500.4050 ####[facility] [address] [place], [address] Hemoglobin A1con 06-08-2024 HbA1c (Bld) [Mass fraction] 8.6 % High 3.8-5.6 [facility] Comment on above: Result Comment: Norm al < 5.7 % Prediabetic 5.7 - 6.4 % Diabetic >or= 6.5 % Please note range changes. Performed By: #### L 501.9904 ####[facility] [address] [place], [address] Magnesiumon 06-08-2024 Magnesium [Mass/Vol] 1.8 mg/dL Normal 1.6-2.6 [facility] Comment on above: Performed By: #### L 501.5200, L100.0100, L500.4050 ####[facility] [address] [place], [address] Abdomen/Pelvis W IV Cont ONL Yon 06-07-2024 Abdomen/Pelvis W IV Cont ONLY Normal [facility] Bedside Glucoseon 06-07-2024 FINGERSTICK GLU 422 mg/dL High 74-106 [facility] Comment on above: Result Comment: EDGAR GEMENT OF PATIENT CARE PER NURSING PROTOCOL Performed By: #### L 501.080 ####[facility] [address] [place], [address] FINGERSTICK GLU 331 mg/dL High 74-106 [facility] Comment on above: Result Comment: EDGAR HUNG OF PATIENT CARE PER NURSING PROTOCOL Performed By: #### L 501.080 ####[facility] [address] [place], [address] CBC W/Diff, Automatedon 10- Absolute Lymph 0.76 X10 3/uL Low 0.83-4.51 [facility] Comment on above: Performed By: #### L 501.4020, L100.0100, L501.2450, L500.4050 ####[facility] [address] [place], [address] Absolute Neut 14.6 X10 3/uL High 2.0-7.7 [facility] Comment on above: Performed By: #### L 501.4020, L100.0100, L501.2450, L500.4050 ####[facility] [address] [place], [address] Basophils/100 WBC (Bld) 0.3 % Normal 0-1 [facility] Comment on above: Performed By: #### L 501.4020, L100.0100, L501.2450, L500.4050 ####[facility] [address] [place], [address] Eosinophils/100 WBC (Bld) 0.0 % Normal 0-5 [facility] Comment on above: Performed By: #### L 501.4020, L100.0100, L501.2450, L500.4050 ####[facility] [address] [place], [address] Erythrocyte distribution width (RBC) [Ratio] 12.3 % Normal 11.6-14.6 [facility] Comment on above: Performed By: #### L 501.4020, L100.0100, L501.2450, L500.4050 ####[facility] [address] [place], [address] Hematocrit (Bld) [Volume fraction] 39.5 % Normal 37-47 [facility] Comment on above: Performed By: #### L 501.4020, L100.0100, L501.2450, L500.4050 ####[facility] [address] [place], [address] Hemoglobin (Bld) [Mass/Vol] 13.4 g/dL Normal 12.0-15.0 [facility] Comment on above: Performed By: #### L 501.4020, L100.0100, L501.2450, L500.4050 ####[facility] [address] [place], [address] IG% 0.900 Normal 0.0-0.9 [facility] Comment on above: Result Comment: IG% - Immature Granulocytes (promyelocytes, myelocytes andmetamyelocytes) > 1% indicates that a LEFT SHIFT is Present. Performed By: #### L 501.4020, L100.0100, L501.2450, L500.4050 ####[facility] [address] [place], [address] Lymphocytes/100 WBC (Bld) 4.8 % Low 19-41 [facility] Comment on above: Performed By: #### L 501.4020, L100.0100, L501.2450, L500.4050 ####[facility] [address] [place], [address] MCH (RBC) [Entitic mass] 29.2 pg Normal 27.0-32.0 [facility] Comment on above: Performed By: #### L 501.4020, L100.0100, L501.2450, L500.4050 ####[facility] [address] [place], [address] MCHC (RBC) [Mass/Vol] 33.9 g/dL Normal 32-36 [facility] Comment on above: Performed By: #### L 501.4020, L100.0100, L501.2450, L500.4050 ####[facility] [address] [place], [address] MCV (RBC) [Entitic vol] 86.1 fL Normal 81-99 [facility] Comment on above: Performed By: #### L 501.4020, L100.0100, L501.2450, L500.4050 ####[facility] [address] [place], [address] Monocytes/100 WBC (Bld) 2.6 % Normal 0-10 [facility] Comment on above: Performed By: #### L 501.4020, L100.0100, L501.2450, L500.4050 ####[facility] [address] [place], [address] Neutrophils/100 WBC (Bld) 91.4 % High 47-70 [facility] Comment on above: Performed By: #### L 501.4020, L100.0100, L501.2450, L500.4050 ####[facility] [address] [place], [address] Nucleated RBC (Bld) [#/Vol] 0 10*3/uL Normal 0-5 [facility] Comment on above: Performed By: #### L 501.4020, L100.0100, L501.2450, L500.4050 ####[facility] [address] [place], [address] Platelet mean volume (Bld) [Entitic vol] 13.6 fL High 6.2-12.0 [facility] Comment on above: Performed By: #### L 501.4020, L100.0100, L501.2450, L500.4050 ####[facility] [address] [place], [address] Platelets (Bld) [#/Vol] 167 10*3/uL Normal 150-450 [facility] Comment on above: Performed By: #### L 501.4020, L100.0100, L501.2450, L500.4050 ####[facility] [address] [place], [address] RBC (Bld) [#/Vol] 4.59 10*6/uL Normal 4.2-5.4 [facility] Comment on above: Performed By: #### L 501.4020, L100.0100, L501.2450, L500.4050 ####[facility] [address] [place], [address] RDW SD 38.5 fl Normal 35.1-43.9 [facility] Comment on above: Performed By: #### L 501.4020, L100.0100, L501.2450, L500.4050 ####[facility] [address] [place], [address] WBC (Bld) [#/Vol] 16.0 10*3/uL High 4.4-11.0 [facility] Comment on above: Performed By: #### L 501.4020, L100.0100, L501.2450, L500.4050 ####[facility] [address] [place], [address] Comprehensive Metabolic Prof ohjesus 06-07-2024 Albumin [Mass/Vol] 4.1 g/dL Normal 3.2-5.0 [facility] Comment on above: Order Comment: 'TROP ' Serial specimen #1, #2 or #3: 1 Performed By: #### L 501.4020, L100.0100, L501.2450, L500.4050 ####[facility] [address] [place], [address] Albumin/Globulin [Mass ratio] 1.2 {ratio} Normal 0.9-2.4 [facility] Comment on above: Order Comment: 'TROP ' Serial specimen #1, #2 or #3: 1 Performed By: #### L 501.4020, L100.0100, L501.2450, L500.4050 ####[facility] [address] [place], [address] ALK P 87 U/L Normal 45-117 [facility] Comment on above: Order Comment: 'TROP ' Serial specimen #1, #2 or #3: 1 Performed By: #### L 501.4020, L100.0100, L501.2450, L500.4050 ####[facility] [address] [place], [address] ALT [Catalytic activity/Vol] 25 U/L Normal 13-56 [facility] Comment on above: Order Comment: 'TROP ' Serial specimen #1, #2 or #3: 1 Performed By: #### L 501.4020, L100.0100, L501.2450, L500.4050 ####[facility] [address] [place], [address] AST [Catalytic activity/Vol] 15 U/L Normal 15-37 [facility] Comment on above: Order Comment: 'TROP ' Serial specimen #1, #2 or #3: 1 Performed By: #### L 501.4020, L100.0100, L501.2450, L500.4050 ####[facility] [address] [place], [address] Bilirubin [Mass/Vol] 1.30 mg/dL High 0.20-1.00 [facility] Comment on above: Order Comment: 'TROP ' Serial specimen #1, #2 or #3: 1 Result Comment: For patients on eltrombopag therapy, use of Dimension [place] TBIL is not recommended. Performed By: #### L 501.4020, L100.0100, L501.2450, L500.4050 ####[facility] [address] [place], [address] BUN/CRE 19.1 RATIO Normal 10-20 [facility] Comment on above: Order Comment: 'TROP ' Serial specimen #1, #2 or #3: 1 Performed By: #### L 501.4020, L100.0100, L501.2450, L500.4050 ####[facility] [address] [place], [address] CA,Total 9.5 mg/dL Normal 8.5-10.1 [facility] Comment on above: Order Comment: 'TROP ' Serial specimen #1, #2 or #3: 1 Performed By: #### L 501.4020, L100.0100, L501.2450, L500.4050 ####[facility] [address] [place], [address] Chloride [Moles/Vol] 105 mmol/L Normal 98-107 [facility] Comment on above: Order Comment: 'TROP ' Serial specimen #1, #2 or #3: 1 Performed By: #### L 501.4020, L100.0100, L501.2450, L500.4050 ####[facility] [address] [place], [address] CO2 [Moles/Vol] 17.0 mmol/L Low 21.0-32.0 [facility] Comment on above: Order Comment: 'TROP ' Serial specimen #1, #2 or #3: 1 Performed By: #### L 501.4020, L100.0100, L501.2450, L500.4050 ####[facility] [address] [place], [address] Creatinine [Mass/Vol] 0.94 mg/dL Normal 0.55-1.02 [facility] Comment on above: Order Comment: 'TROP ' Serial specimen #1, #2 or #3: 1 Result Comment: The validity of the calculated GFR GFRAA in patients over70 years has not been determined. Clinical correlation isessential. Performed By: #### L 501.4020, L100.0100, L501.2450, L500.4050 ####[facility] [address] [place], [address] ECRCL 92.29 ml/min Normal [facility] Comment on above: Order Comment: 'TROP ' Serial specimen #1, #2 or #3: 1 Performed By: #### L 501.4020, L100.0100, L501.2450, L500.4050 ####[facility] [address] [place], [address] EST GFR - AA 90 mL/min Normal >60 [facility] Comment on above: Order Comment: 'TROP ' Serial specimen #1, #2 or #3: 1 Result Comment: Afri can [place] GFR Calc Performed By: #### L 501.4020, L100.0100, L501.2450, L500.4050 ####[facility] [address] [place], [address] GAP 14 Normal 5-15 [facility] Comment on above: Order Comment: 'TROP ' Serial specimen #1, #2 or #3: 1 Performed By: #### L 501.4020, L100.0100, L501.2450, L500.4050 ####[facility] [address] [place], [address] GFR/1.73 sq M.predicted among non-blacks MDRD (S/P/Bld) [Vol rate/Area] 74 mL/min/{1.73_m2} Normal >60 [facility] Comment on above: Order Comment: 'TROP ' Serial specimen #1, #2 or #3: 1 Result Comment: Non- GFR Calc Performed By: #### L 501.4020, L100.0100, L501.2450, L500.4050 ####[facility] [address] [place], [address] Globulin (S) [Mass/Vol] 3.5 g/dL Normal 2.2-4.2 [facility] Comment on above: Order Comment: 'TROP ' Serial specimen #1, #2 or #3: 1 Performed By: #### L 501.4020, L100.0100, L501.2450, L500.4050 ####[facility] [address] [place], [address] Glucose [Mass/Vol] 355 mg/dL High 74-106 [facility] Comment on above: Order Comment: 'TROP ' Serial specimen #1, #2 or #3: 1 Result Comment: Gluc ose result greater than or equal to 200 mg/dLsuggests DIABETES MELLITUS per A.D.A. criteria. Performed By: #### L 501.4020, L100.0100, L501.2450, L500.4050 ####[facility] [address] [place], [address] Potassium [Moles/Vol] 3.4 mmol/L Low 3.5-5.1 [facility] Comment on above: Order Comment: 'TROP ' Serial specimen #1, #2 or #3: 1 Performed By: #### L 501.4020, L100.0100, L501.2450, L500.4050 ####[facility] [address] [place], [address] Sodium [Moles/Vol] 136 mmol/L Normal 136-145 [facility] Comment on above: Order Comment: 'TROP ' Serial specimen #1, #2 or #3: 1 Performed By: #### L 501.4020, L100.0100, L501.2450, L500.4050 ####[facility] [address] [place], [address] T PROT 7.6 g/dL Normal 6.4-8.2 [facility] Comment on above: Order Comment: 'TROP ' Serial specimen #1, #2 or #3: 1 Performed By: #### L 501.4020, L100.0100, L501.2450, L500.4050 ####[facility] [address] [place], [address] Urea nitrogen [Mass/Vol] 18 mg/dL Normal 7-18 [facility] Comment on above: Order Comment: 'TROP ' Serial specimen #1, #2 or #3: 1 Performed By: #### L 501.4020, L100.0100, L501.2450, L500.4050 ####[facility] [address] [place], [address] Emergency Department Summary on 06-07-2024 Emergency Department Summary Normal [facility] H AND P Exam - Hospitaliston 06-07-2024 H&P Exam - Hospitalist Normal [facility] L501.4020on 06-07-2024 TROPONIN-I HS 4 pg/mL Normal 3.0-54.0 [facility] Comment on above: Order Comment: 'TROP ' Serial specimen #1, #2 or #3: 1 Result Comment: Plea se Note: New Test Units and Gender Specific Reference Ranges. For more information see Policy Stat Procedure [place] High Sensitivity Troponin (TNIH) and attachments. Performed By: #### L 501.4020, L100.0100, L501.2450, L500.4050 ####[facility] [address] [place], [address] Lipaseon 06-07-2024 Lipase [Catalytic activity/Vol] 10 U/L Low 13-75 [facility] Comment on above: Order Comment: 'TROP ' Serial specimen #1, #2 or #3: 1 Result Comment: Plea se note:LIPASE revised reference range effective 22.New Lipase methodology. Expected to produce lower valuesthan the previous assay method.NEW Reference Range: 13 - 75 U/L Performed By: #### L 501.4020, L100.0100, L501.2450, L500.4050 ####[facility] [address] [place], [address] ,Urineon 06-07-2024 Beta HCG ( test) Ql (U) Negative Normal [facility] Comment on above: Order Comment: CLEAN CATCH Result Comment: Very dilute urine specimens, as indicated by a low specificgravity, may not contain telecommunications sales representative levels of hCG.If is still suspected, a first morning urinespecimen should be collected 48 hours later and tested. Performed By: #### L 400.7600, L400.0001 ####[facility] [address] [place], [address] Urinalysis, Completeon 06-07 BACTERIA 0 SEEN Normal None Seen [facility] Comment on above: Order Comment: CLEAN CATCH Performed By: #### L 400.7600, L400.0001 ####[facility] [address] [place], [address] EPI,SQUAMOUS 0 SEEN Normal 5-10 [facility] Comment on above: Order Comment: CLEAN CATCH Performed By: #### L 400.7600, L400.0001 ####[facility] [address] [place], [address] Mucus Ql (Urine sed) 0 SEEN Normal [facility] Comment on above: Order Comment: CLEAN CATCH Performed By: #### L 400.7600, L400.0001 ####[facility] [address] [place], [address] RBC 0 SEEN Normal 0-5 [facility] Comment on above: Order Comment: CLEAN CATCH Performed By: #### L 400.7600, L400.0001 ####[facility] [address] [place], [address] WBC 0 SEEN Normal 0-5 [facility] Comment on above: Order Comment: CLEAN CATCH Performed By: #### L 400.7600, L400.0001 ####[facility] [address] [place], [address] Dipak 05-16-2024 GIOVANA Telephone (ENDOIN) KATHLEEN VILLA ([id number]) 1995 F T Date Time Provider Department [...] pay the $3000,was told to call her physical therapy attendant for assistance. Re Gonzalez, STIVEN 05/17/2024 10:09 AM Signed JOSE 03/12/24 Joshua CAMPA 05/28/24 Josue Pt uses [facility] for supplies Has had loaner pump x3 months through [employer] and now has to return it or pay $3000 out of pocket. Advised pt she has to call [facility] and have them send us an order [...] updated if any issues. Jessica Guerrero APRN.CNP [facility] PssZelda 05/24/2024 1:01 PM Signed Patient has [...] not received any new order forms from [facility] or [employer]. Advised pt to reach out. 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 Normal [facility] [place] 36on 05-06-2024 36 Medication: Skyrizi 150mg/ml Dosing Schedule: 150mg every 12 weeks Prior Authorization: Submitted date: 05.06.2024 [place] reference #: [id number] Approval dates: 05.06.2024-08.27.2024 Caitie Light Liaison [facility] [phone] [facility] CNOVon 03-12-2024 CNOV Office Visit (ENDOIN ) KATHLEEN VILLA Brynn ([id number]) 1995 F CHT Date Time Provider Department [...] 12/23/2020 LDL Cholesterol due on 02/04/2022 Covid-19 Vaccine() Never done Diabetic Foot Exam due on [...] 149 Trigly (more content not included)... Normal [facility] HEMOGLOBIN A1C (POC)on 03-12 HbA1c (Bld) [Mass fraction] 8.8 % Abnormal 4.3 - 5.6 % [facility] Comment on above: Location:[address], [place], [place], [address] Point of care (POC) Hemoglobin A1c (HGBA1C) [...] specific diabetes management situations: The POC device manager organizational provides a normal range of 4.2% to 6.5% for the HGBA1C POC test. However, the [place] Diabetes [employer] guidelines indicate that patients with [...] Interpretation and review of laboratory results Abnormal [facility] CNPNon 03-02-2024 CNPN Telephone (ENDOIN) KATHLEEN VILLA ([id number]) 1995 F CHT Date Time Provider Department [...] Date Reviewed: 12/13/2023 Reviewed by: Jessica Guerrero APRN.TELEGRAPH SERVICE RATER - Fully Assessed Reason for Visit: Forms [...] (post-traumatic stress disorder) [F43.10] 12/25/2012 DVT prophylaxis [[id number]] 12/25/2012 09/04/2013 DISPOSITION AND FOLLOW-UP [V999.01] 12/25/2012 09/04/2013 HTN (hypertension) [I10] Hypertension in , antepartum [O16.9] 09/19/2013 01/08/2014 GBS (group B Streptococcus carrier), +RV cultur*11/11/2013 04/16/2014 [Z34.90] 11/22/2013 04/16/2014 Diabetes mellitus in (HCC) [O24.919] 12/25/2013 04/16/2014 Diabetic ketoacidosis without coma associated w*01/08/2014 02/04/2023 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] 01/08/2014 DVT prophylaxis [VBC5699] 02/25/2014 04/16/2014 care and examination [Z39.2] 02/25/2014 [...] Encounter Status:Closed by ESTRELLITA MCCLENDON on 03/05/24 [facility] Dipak 02-14-2024 CNPN Telephone (ENDOIN) DAISYKATHLEEN Richter ([id number]) 1995 F CHT Date Time Provider Department 02/14/24 KVNG LEWIS During your visit today, we recorded the following information about you: Jennifer Ramos 02/14/2024 1:51 PM Signed Patient stated that her 630G pump malfunctioned and she had to get a new one. Patient needs to now what settings to put the pump on. Patient can be reached at [phone] Estrellita Mcclendon RN 02/14/2024 4:43 PM Signed [...] Date Reviewed: 12/13/2023 Reviewed by: Jessica Guerrero APRN.TELEGRAPH SERVICE RATER - Fully Assessed Reason for Visit: machine [...] (post-traumatic stress disorder) [F43.10] 12/25/2012 DVT prophylaxis [[id number]] 12/25/2012 09/04/2013 DISPOSITION AND FOLLOW-UP [V999.01] 12/25/2012 09/04/2013 HTN (hypertension) [I10] Hypertension in , antepartum [O16.9] 09/19/2013 01/08/2014 GBS (group B Streptococcus carrier), +RV cultur*11/11/2013 04/16/2014 [Z34.90] 11/22/2013 04/16/2014 Diabetes mellitus in (HCC) [O24.919] 12/25/2013 04/16/2014 Diabetic ketoacidosis without coma associated w*01/08/2014 02/04/2023 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] 01/08/2014 DVT prophylaxis [[id number]] 02/25/2014 04/16/2014 care and examination [Z39.2] 02/25/2014 [...] pain [R10.8 (more content not included)... Normal [facility] CNPNon 02-13-2024 CNPN Telephone (ENDOMN) KATHLEEN VILLA ([id number]) 1995 F CHT Date Time Provider Department [...] MD Clinical Fellow PGY-4 Endocrinology and Metabolism [place] Allergies As of Date: 02/13/2024 Noted Allergy [...] Date Reviewed: 12/13/2023 Reviewed by: Jessica Guerrero APRN.TELEGRAPH SERVICE RATER - Fully Assessed Reason for Visit: Medication [...] (post-traumatic stress disorder) [F43.10] 12/25/2012 DVT prophylaxis [[id number]] 12/25/2012 09/04/2013 DISPOSITION AND FOLLOW-UP [V999.01] 12/25/2012 09/04/2013 HTN (hypertension) [I10] Hypertension in , antepartum [O16.9] 09/19/2013 01/08/2014 GBS (group B Streptococcus carrier), +RV cultur*11/11/2013 04/16/2014 [Z34.90] 11/22/2013 04/16/2014 Diabetes mellitus in (HCC) [O24.919] 12/25/2013 04/16/2014 Diabetic ketoacidosis without coma associated w*01/08/2014 02/04/2023 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] 01/08/2014 DVT prophylaxis [[id number]] 02/25/2014 04/16/2014 care and examination [Z39.2] 02/25/2014 [...] 08/16/2022 Gastro (more content not included)... Normal [facility] CNOVon 12-13-2023 CNOV Office Visit (ENDOIN ) KATHLEEN VILLA ([id number]) 1995 F CHT Date Time Provider Department 12/13/23 4:00 PM JESSICA GUERRERO During your visit today, we recorded the following information about you: Pulse Respiration Blood pressure Weight 80/minute 16/minute 139/87 77.1 kg Jessica Guerrero APRN.FRIEDA 12/13/2023 4:53 PM Signed ENDOCRINOLOGY AND METABOLISM [...] Other maternal great grandma I reviewed the Security Controls Assessor's notes with this visit for vital signs, [...] 1 DM (more content not included)... Normal [facility] HEMOGLOBIN A1C (POC)on 12-12 HbA1c (Bld) [Mass fraction] 7.1 % Abnormal 4.3 - 5.6 % [facility] Absolute lymphocyte countOrd ered By: Lin Johansen on 10-25-2023 Lymphocytes Auto (Unsp spec) [#/Vol] 2.23 10*3/uL 0.83-4.51 [facility] Automated lymphocyte count a s percentage of total leukocytesOrdered By: Lin Johansen on 10-25-2023 Lymphocytes/100 WBC Auto (Unsp spec) 17.4 % 19-41 [facility] Basophil percentageOrdered B y: Lin Johansen on 10-25-2023 Basophils/100 WBC (Bld) 0.8 % 0-1 [facility] Chloride [Moles/Vol] 106 mmol/L 98-107 [facility] Eosinophils/100 WBC (Bld) 0.7 % 0-5 [facility] Glucose [Mass/Vol] 255 mg/dL 74-106 [facility] Comment on above: Glucose result great er than or equal to 200 mg/dLsuggests DIABETES MELLITUS per A.D.A. criteria. Hemoglobin (Bld) [Mass/Vol] 14.3 g/dL 12.0-15.0 [facility] Monocytes/100 WBC (Bld) 3.7 % 0-10 [facility] Neutrophils (Bld) [#/Vol] 9.8 10*3/uL 2.0-7.7 [facility] Neutrophils/100 WBC (Bld) 76.5 % 47-70 [facility] Potassium [Moles/Vol] 4.3 mmol/L 3.5-5.1 [facility] Sodium [Moles/Vol] 137 mmol/L 136-145 [facility] WBC (Bld) [#/Vol] 12.8 10*3/uL 4.4-11.0 [facility] Determination of erythrocyte mean corpuscular volume (MCV)Ordered By: Lin Johansen on 10-25-2023 MCV (RBC) [Entitic vol] 89.6 fL 81-99 [facility] Erythrocyte distribution wid th ratioOrdered By: Lin Johansen on 10-25-2023 Erythrocyte distribution width (RBC) [Ratio] 13.9 % 11.6-14.6 [facility] Erythrocyte distribution wid th standard deviationOrdered By: Lin Johansen on 10-25-2023 Erythrocyte distribution width (RBC) [Entitic vol] 46.0 fL 35.1-43.9 [facility] Hematocrit Auto (Bld) [Volum e fraction]Ordered By: Lin Johansen on 10-25-2023 Hematocrit (Bld) [Volume fraction] 44.7 % 37-47 [facility] Immature granulocytes/100 WB C Auto (Bld)Ordered By: Lin Johansen on 10-25-2023 Immature granulocytes/100 WBC (Bld) 0.900 % 0.0-0.9 [facility] Comment on above: IG% - Immature Granu locytes (promyelocytes, myelocytes and metamyelocytes) > 1% indicates that a LEFT SHIFT is Present. Laboratory - Chemistry and C hemistry - challengeOrdered By: Lin Johansen on 10-25-2023 CO2 [Moles/Vol] 23.0 mmol/L 21.0-32.0 [facility] Urea nitrogen/Creatinine [Mass ratio] 21.5 mg/mg 10-20 [facility] Laboratory - Drug toxicology Ordered By: Lin Johansen on 10-25-2023 Amphetamines Ql (U) Negative <1000 ng/mL [facility] Benzodiazepines Ql (U) Negative < 200 ng/mL [facility] Cannabinoids Screen Ql (U) Positive < 50 ng/mL [facility] Cocaine Ql (U) Negative < 300 ng/mL [facility] Opiates Ql (U) Negative < 300 ng/mL [facility] Laboratory - Hematology and Cell countsOrdered By: Lin Johansen on 10-25-2023 MCH (RBC) [Entitic mass] 28.7 pg 27.0-32.0 [facility] MCHC (RBC) [Mass/Vol] 32.0 g/dL 32-36 [facility] Nucleated RBC/100 WBC (Bld) [Ratio] 0 % 0-5 [facility] Platelet mean volume (Bld) [Entitic vol] 11.9 fL 6.2-12.0 [facility] Platelets (Bld) [#/Vol] 171 10*3/uL 150-450 [facility] No Panel InformationOrdered By: Lin Johansen on 10-25-2023 Estimated Creatinine Clearance Calc 109.81 ml/min [facility] Estimated GFR (MDRD) Amer 110 mL/min >60 [facility] Comment on above: GFR Calc Estimated GFR (MDRD) Non-Af Amer 91 mL/min >60 [facility] Comment on above: Non- GFR Calc Ethyl Alcohol Level < 3.0 mg/dL [facility] Comment on above: The serum:whole bloo d ethanol ratio is approximately 1.14and varies slightly with hematocrit. Medical Alcohol reference interval and critical value innon-tolerant individuals; 50 - 100 Impairment 100 Intoxication 100 - 250 Severe Poisoning 250 - 400 Deep/possible fatal coma MDMA (Ecstasy) Screen Negative < 500 ng/mL [facility] Urine Barbiturates Screen Negative < 200 ng/mL [facility] Urine Drug Screen Comment [facility] Comment on above: CONFIRMATORY TESTING FOR [...] Screen Negative < 300 ng/mL [facility] RBC Auto (Bld) [#/Vol]Ordere d By: Lin Johansen on 10-25-2023 RBC (Bld) [#/Vol] 4.99 10*6/uL 4.2-5.4 [facility] Serum or plasma calcium milli urement (mass/volume)Ordered By: Lin Johansen on 10-25-2023 Calcium [Mass/Vol] 9.0 mg/dL 8.5-10.1 [facility] Serum or plasma choriogonado tropin detectionOrdered By: Lin Johansen on 10-25-2023 HCG ( test) Ql Negative [facility] Serum or plasma creatinine m easurement (mass/volume)Ordered By: Lin Johansen on 10-25-2023 Creatinine [Mass/Vol] 0.79 mg/dL 0.55-1.02 [facility] Comment on above: The validity of the calculated GFR & GFRAA in patients over 70 years has not been determined. Clinical correlation is essential. Serum or plasma urea nitroge n measurement (mass/volume)Ordered By: Lin Johansen on 10-25-2023 Urea nitrogen [Mass/Vol] 17 mg/dL 7-18 [facility] Thin prep Papanicolaou smear with manual screeningOrdered By: Lin Johansen on 10-25-2023 Thin prep Papanicolaou smear with manual screening 60 mg/dL 74-106 [facility] Comment on above: MANAGEMENT OF PATIEN T CARE PER NURSING PROTOCOL Thin prep Papanicolaou smear with manual screening 8 5-15 [facility] Urine phencyclidine (PCP) de tectionOrdered By: Lin Johansen on 10-25-2023 Phencyclidine Ql (U) Negative < 25 ng/mL [facility] Absolute lymphocyte countOrd ered By: Vita Ronny on 10-18-2023 Lymphocytes Auto (Unsp spec) [#/Vol] 2.87 10*3/uL 0.83-4.51 [facility] Automated lymphocyte count a s percentage of total leukocytesOrdered By: Vitachase Jefferson on 10-18-2023 Lymphocytes/100 WBC Auto (Unsp spec) 32.5 % 19-41 [facility] Basophil percentageOrdered B y: Vita Ronny on 10-18-2023 Basophils/100 WBC (Bld) 0.3 % 0-1 [facility] Chloride [Moles/Vol] 110 mmol/L 98-107 [facility] Eosinophils/100 WBC (Bld) 1.0 % 0-5 [facility] Glucose [Mass/Vol] 227 mg/dL 74-106 [facility] Comment on above: Glucose result great er than or equal to 200 mg/dLsuggests DIABETES MELLITUS per A.D.A. criteria. Hemoglobin (Bld) [Mass/Vol] 12.0 g/dL 12.0-15.0 [facility] Monocytes/100 WBC (Bld) 6.0 % 0-10 [facility] Neutrophils (Bld) [#/Vol] 5.3 10*3/uL 2.0-7.7 [facility] Neutrophils/100 WBC (Bld) 59.5 % 47-70 [facility] Potassium [Moles/Vol] 4.1 mmol/L 3.5-5.1 [facility] Sodium [Moles/Vol] 138 mmol/L 136-145 [facility] WBC (Bld) [#/Vol] 8.8 10*3/uL 4.4-11.0 [facility] Determination of erythrocyte mean corpuscular volume (MCV)Ordered By: Vita Jefferson on 10-18-2023 MCV (RBC) [Entitic vol] 89.4 fL 81-99 [facility] Erythrocyte distribution wid th ratioOrdered By: Vita Jefferson on 10-18-2023 Erythrocyte distribution width (RBC) [Ratio] 13.2 % 11.6-14.6 [facility] Erythrocyte distribution wid th standard deviationOrdered By: Vita Jefferson on 10-18-2023 Erythrocyte distribution width (RBC) [Entitic vol] 43.0 fL 35.1-43.9 [facility] Hematocrit Auto (Bld) [Volum e fraction]Ordered By: Vita Jefferson on 10-18-2023 Hematocrit (Bld) [Volume fraction] 36.4 % 37-47 [facility] Immature granulocytes/100 WB C Auto (Bld)Ordered By: Vita Jefferson on 10-18-2023 Immature granulocytes/100 WBC (Bld) 0.700 % 0.0-0.9 [facility] Comment on above: IG% - Immature Granu locytes (promyelocytes, myelocytes and metamyelocytes) > 1% indicates that a LEFT SHIFT is Present. Laboratory - Chemistry and C hemistry - challengeOrdered By: Vita Jefferson on 10-18-2023 CO2 [Moles/Vol] 25.0 mmol/L 21.0-32.0 [facility] Urea nitrogen/Creatinine [Mass ratio] 24.0 mg/mg 10-20 [facility] Laboratory - Hematology and Cell countsOrdered By: Vita Jefferson on 10-18-2023 MCH (RBC) [Entitic mass] 29.5 pg 27.0-32.0 [facility] MCHC (RBC) [Mass/Vol] 33.0 g/dL 32-36 [facility] Nucleated RBC/100 WBC (Bld) [Ratio] 0 % 0-5 [facility] Platelet mean volume (Bld) [Entitic vol] 12.1 fL 6.2-12.0 [facility] Platelets (Bld) [#/Vol] 111 10*3/uL 150-450 [facility] No Panel InformationOrdered By: Vita Jefferson on 10-18-2023 Estimated Creatinine Clearance Calc 129.48 ml/min [facility] Estimated GFR (MDRD) Amer 135 mL/min >60 [facility] Comment on above: GFR Calc Estimated GFR (MDRD) Non-Af Amer 111 mL/min >60 [facility] Comment on above: Non- GFR Calc RBC Auto (Bld) [#/Vol]Ordere d By: Vita Jefferson on 10-18-2023 RBC (Bld) [#/Vol] 4.07 10*6/uL 4.2-5.4 [facility] Serum or plasma calcium milli urement (mass/volume)Ordered By: Vita Jefferson on 10-18-2023 Calcium [Mass/Vol] 7.6 mg/dL 8.5-10.1 [facility] Serum or plasma creatinine m easurement (mass/volume)Ordered By: Vita Jefferson on 10-18-2023 Creatinine [Mass/Vol] 0.67 mg/dL 0.55-1.02 [facility] Comment on above: The validity of the calculated GFR & GFRAA in patients over 70 years has not been determined. Clinical correlation is essential. Serum or plasma urea nitroge n measurement (mass/volume)Ordered By: Vita Jefferson on 10-18-2023 Urea nitrogen [Mass/Vol] 16 mg/dL 7-18 [facility] Thin prep Papanicolaou smear with manual screeningOrdered By: Vita Jefferson on 10-18-2023 Thin prep Papanicolaou smear with manual screening 3 5-15 [facility] Absolute lymphocyte countOrd ered By: Alexandro Garces on 10-17-2023 Lymphocytes Auto (Unsp spec) [#/Vol] 1.06 10*3/uL 0.83-4.51 [facility] Automated lymphocyte count a s percentage of total leukocytesOrdered By: Alexandro Garces on 10-17-2023 Lymphocytes/100 WBC Auto (Unsp spec) 7.8 % 19-41 [facility] Basophil percentageOrdered B y: Alexandro Garces on 10-17-2023 Basophils/100 WBC (Bld) 0.4 % 0-1 [facility] Chloride [Moles/Vol] 98 mmol/L 98-107 [facility] Eosinophils/100 WBC (Bld) 0.1 % 0-5 [facility] Glucose [Mass/Vol] 534 mg/dL 74-106 [facility] Comment on above: Critical Result(s) C alled at: 10:55:26 10/17/2023 by: Nan Bray. Results read back by same.Glucose result greater than or equal to 200 mg/dLsuggests DIABETES MELLITUS per A.D.A. criteria. Hemoglobin (Bld) [Mass/Vol] 13.6 g/dL 12.0-15.0 [facility] Monocytes/100 WBC (Bld) 2.4 % 0-10 [facility] Neutrophils (Bld) [#/Vol] 12.0 10*3/uL 2.0-7.7 [facility] Neutrophils/100 WBC (Bld) 88.4 % 47-70 [facility] Potassium [Moles/Vol] 4.8 mmol/L 3.5-5.1 [facility] Sodium [Moles/Vol] 132 mmol/L 136-145 [facility] [place] [place] WBC (Bld) [#/Vol] 13.6 10*3/uL 4.4-11.0 [facility] [place] [place] Determination of erythrocyte mean corpuscular volume (MCV)Ordered By: Alexandro Garces on 10-17-2023 MCV (RBC) [Entitic vol] 90.2 fL 81-99 [facility] Erythrocyte distribution wid th ratioOrdered By: Alexandro Garces on 10-17-2023 Erythrocyte distribution width (RBC) [Ratio] 13.1 % 11.6-14.6 [facility] Erythrocyte distribution wid th standard deviationOrdered By: Alexandro Garces on 10-17-2023 Erythrocyte distribution width (RBC) [Entitic vol] 43.1 fL 35.1-43.9 [facility] Hematocrit Auto (Bld) [Volum e fraction]Ordered By: Alexandro Garces on 10-17-2023 Hematocrit (Bld) [Volume fraction] 42.5 % 37-47 [facility] Immature granulocytes/100 WB C Auto (Bld)Ordered By: Alexandro Garces on 10-17-2023 Immature granulocytes/100 WBC (Bld) 0.900 % 0.0-0.9 [facility] Comment on above: IG% - Immature Granu locytes (promyelocytes, myelocytes and metamyelocytes) > 1% indicates that a LEFT SHIFT is Present. Laboratory - Chemistry and C hemistry - challengeOrdered By: Alexandro Garces on 10-17-2023 CO2 [Moles/Vol] 16.0 mmol/L 21.0-32.0 [facility] Urea nitrogen/Creatinine [Mass ratio] 18.6 mg/mg 10-20 [facility] Laboratory - Hematology and Cell countsOrdered By: Alexandro Garces on 10-17-2023 MCH (RBC) [Entitic mass] 28.9 pg 27.0-32.0 [facility] MCHC (RBC) [Mass/Vol] 32.0 g/dL 32-36 [facility] Nucleated RBC/100 WBC (Bld) [Ratio] 0 % 0-5 [facility] Platelet mean volume (Bld) [Entitic vol] 12.2 fL 6.2-12.0 [facility] Platelets (Bld) [#/Vol] 138 10*3/uL 150-450 [facility] No Panel InformationOrdered By: Alexandro Garces on 10-17-2023 Estimated Creatinine Clearance Calc 73.52 ml/min [facility] Estimated GFR (MDRD) Amer 70 mL/min >60 [facility] Comment on above: GFR Calc Estimated GFR (MDRD) Non-Af Amer 58 mL/min >60 [facility] Comment on above: Non- GFR Calc RBC Auto (Bld) [#/Vol]Ordere d By: Alexandro Garces on 10-17-2023 RBC (Bld) [#/Vol] 4.71 10*6/uL 4.2-5.4 [facility] Serum or plasma acetone milli urement (mass/volume)Ordered By: Alexandro Garces on 10-17-2023 Acetone [Mass/Vol] MODERATE NEG [facility] Serum or plasma calcium milli urement (mass/volume)Ordered By: Alexandro Garces on 10-17-2023 Calcium [Mass/Vol] 9.1 mg/dL 8.5-10.1 [facility] Serum or plasma creatinine m easurement (mass/volume)Ordered By: Alexandro Garces on 10-17-2023 Creatinine [Mass/Vol] 1.18 mg/dL 0.55-1.02 [facility] Comment on above: The validity of the calculated GFR & GFRAA in patients over 70 years has not been determined. Clinical correlation is essential. Serum or plasma urea nitroge n measurement (mass/volume)Ordered By: Alexandro Garces on 10-17-2023 Urea nitrogen [Mass/Vol] 22 mg/dL 7-18 [facility] Thin prep Papanicolaou smear with manual screeningOrdered By: Vita Jefferson on 10-17-2023 Thin prep Papanicolaou smear with manual screening 293 mg/dL 74-106 [facility] Comment on above: MANAGEMENT OF PATIEN T CARE PER NURSING PROTOCOL Thin prep Papanicolaou smear with manual screeningOrdered By: Alexandro Garces on 10-17-2023 Thin prep Papanicolaou smear with manual screening 18 5-15 [facility] Absolute lymphocyte countOrd ered By: Olvin Ibarra on 09-25-2023 Lymphocytes Auto (Unsp spec) [#/Vol] 0.95 10*3/uL 0.83-4.51 [facility] Automated lymphocyte count a s percentage of total leukocytesOrdered By: Olvin Ibarra on 09-25-2023 Lymphocytes/100 WBC Auto (Unsp spec) 15.8 % 19-41 [facility] Basophil percentageOrdered B y: Olvin Ibarra on 09-25-2023 Basophils/100 WBC (Bld) 0.3 % 0-1 [facility] Chloride [Moles/Vol] 106 mmol/L 98-107 [facility] Eosinophils/100 WBC (Bld) 0.2 % 0-5 [facility] Glucose [Mass/Vol] 331 mg/dL 74-106 [facility] Comment on above: Glucose result great er than or equal to 200 mg/dLsuggests DIABETES MELLITUS per A.D.A. criteria. Hemoglobin (Bld) [Mass/Vol] 13.2 g/dL 12.0-15.0 [facility] Monocytes/100 WBC (Bld) 12.0 % 0-10 [facility] Neutrophils (Bld) [#/Vol] 4.2 10*3/uL 2.0-7.7 [facility] Neutrophils/100 WBC (Bld) 70.4 % 47-70 [facility] Potassium [Moles/Vol] 3.7 mmol/L 3.5-5.1 [facility] Sodium [Moles/Vol] 135 mmol/L 136-145 [facility] WBC (Bld) [#/Vol] 6.0 10*3/uL 4.4-11.0 [facility] Blood platelet adequacy dete ction by light microscopyOrdered By: Olvin Ibarra on 09-25-2023 Platelets LM Ql (Bld) MOD DEC ADEQ [facility] Determination of erythrocyte mean corpuscular volume (MCV)Ordered By: Olvin Ibarra on 09-25-2023 MCV (RBC) [Entitic vol] 90.2 fL 81-99 [facility] Erythrocyte distribution wid th ratioOrdered By: Olvin Ibarra on 09-25-2023 Erythrocyte distribution width (RBC) [Ratio] 13.8 % 11.6-14.6 [facility] Erythrocyte distribution wid th standard deviationOrdered By: Olvin Ibarra on 09-25-2023 Erythrocyte distribution width (RBC) [Entitic vol] 45.7 fL 35.1-43.9 [facility] Hematocrit Auto (Bld) [Volum e fraction]Ordered By: Olvin Ibarra on 09-25-2023 Hematocrit (Bld) [Volume fraction] 41.6 % 37-47 [facility] Immature granulocytes/100 WB C Auto (Bld)Ordered By: Olvin Ibarra on 09-25-2023 Immature granulocytes/100 WBC (Bld) 1.300 % 0.0-0.9 [facility] Comment on above: IG% - Immature Granu locytes (promyelocytes, myelocytes and metamyelocytes) > 1% indicates that a LEFT SHIFT is Present. Laboratory - Chemistry and C hemistry - challengeOrdered By: Olvin Ibarra on 09-25-2023 CO2 [Moles/Vol] 18.0 mmol/L 21.0-32.0 [facility] Urea nitrogen/Creatinine [Mass ratio] 15.6 mg/mg 10-20 [facility] Laboratory - Hematology and Cell countsOrdered By: Olvin Ibarra on 09-25-2023 MCH (RBC) [Entitic mass] 28.6 pg 27.0-32.0 [facility] MCHC (RBC) [Mass/Vol] 31.7 g/dL 32-36 [facility] Nucleated RBC/100 WBC (Bld) [Ratio] 0 % 0-5 [facility] Platelets (Bld) [#/Vol] 76 10*3/uL 150-450 [facility] No Panel InformationOrdered By: Olvin Ibarra on 09-25-2023 Estimated Creatinine Clearance Calc 96.39 ml/min [facility] Estimated GFR (MDRD) Amer 96 mL/min >60 [facility] Comment on above: GFR Calc Estimated GFR (MDRD) Non-Af Amer 79 mL/min >60 [facility] Comment on above: Non- GFR Calc Platelet mean volume Dong-Ec ker (Bld) [Entitic vol]Ordered By: Olvin Ibarra on 09-25-2023 Platelet mean volume (Bld) [Entitic vol] 12.8 fL 6.2-12.0 [facility] RBC Auto (Bld) [#/Vol]Ordere d By: Olvin Ibarra on 09-25-2023 RBC (Bld) [#/Vol] 4.61 10*6/uL 4.2-5.4 [facility] Serum or plasma calcium milli urement (mass/volume)Ordered By: Olvin Ibarra on 09-25-2023 Calcium [Mass/Vol] 8.4 mg/dL 8.5-10.1 [facility] Serum or plasma creatinine m easurement (mass/volume)Ordered By: Olvin Ibarra on 09-25-2023 Creatinine [Mass/Vol] 0.90 mg/dL 0.55-1.02 [facility] Comment on above: The validity of the calculated GFR & GFRAA in patients over 70 years has not been determined. Clinical correlation is essential. Serum or plasma urea nitroge n measurement (mass/volume)Ordered By: Olvin Ibarra on 09-25-2023 Urea nitrogen [Mass/Vol] 14 mg/dL 7-18 [facility] Thin prep Papanicolaou smear with manual screeningOrdered By: Olvin Ibarra on 09-25-2023 Thin prep Papanicolaou smear with manual screening 11 5-15 [facility] Laboratory - Microbiology an d Antimicrobial susceptibilityOrdered By: Siddharth Michelle on 09-24-2023 SARS-CoV-2 (COVID-19) RNA DANIEL+probe Ql (Unsp spec) Influenzae B [facility] Absolute lymphocyte countOrd ered By: Rm Chirinos on 09-20-2023 Lymphocytes Auto (Unsp spec) [#/Vol] 0.75 10*3/uL 0.83-4.51 [facility] Automated lymphocyte count a s percentage of total leukocytesOrdered By: Rm Chirinos on 09-20-2023 Lymphocytes/100 WBC Auto (Unsp spec) 4.6 % 19-41 [facility] Base excessOrdered By: Rm siddiqi on 09-20-2023 Base excess Calc (BldV) [Moles/Vol] -5 mmol/L -1.0-3.5 [facility] Basophil percentageOrdered B y: Rm Chirinos on 09-20-2023 Basophil percentage 0 SEEN /hpf 0-5 [facility] Basophils/100 WBC (Bld) 0.4 % 0-1 [facility] Chloride [Moles/Vol] 102 mmol/L 98-107 [facility] Eosinophils/100 WBC (Bld) 0.0 % 0-5 [facility] Glucose [Mass/Vol] 534 mg/dL 74-106 [facility] Comment on above: Critical Result(s) C alled at: 12:17:31 09/20/2023 by: Reid Rogers. Colin Lo RN (ER). Results read back by same.Glucose result greater than or equal to 200 mg/dLsuggests DIABETES MELLITUS per A.D.A. criteria. Hemoglobin (Bld) [Mass/Vol] 13.4 g/dL 12.0-15.0 [facility] Monocytes/100 WBC (Bld) 2.8 % 0-10 [facility] Neutrophils (Bld) [#/Vol] 14.7 10*3/uL 2.0-7.7 [facility] Neutrophils/100 WBC (Bld) 91.2 % 47-70 [facility] Potassium [Moles/Vol] 4.9 mmol/L 3.5-5.1 [facility] Sodium [Moles/Vol] 132 mmol/L 136-145 [facility] WBC (Bld) [#/Vol] 16.2 10*3/uL 4.4-11.0 [facility] Bilirubin Test strip Ql (U)O rdered By: Rm Chirinos on 09-20-2023 Bilirubin Ql (U) Negative Negative [facility] CO2 (BldV) [Moles/Vol]Ordere d By: Rmej Chirinos on 09-20-2023 CO2 [Moles/Vol] 22 mmol/L 23-33 [facility] Determination of erythrocyte mean corpuscular volume (MCV)Ordered By: Rm Chirinos on 09-20-2023 MCV (RBC) [Entitic vol] 90.3 fL 81-99 [facility] Erythrocyte distribution wid th ratioOrdered By: [facility] on 09-20-2023 Erythrocyte distribution width (RBC) [Ratio] 13.5 % 11.6-14.6 [facility] Erythrocyte distribution wid th standard deviationOrdered By: [facility] on 09-20-2023 Erythrocyte distribution width (RBC) [Entitic vol] 44.9 fL 35.1-43.9 [facility] Hematocrit Auto (Bld) [Volum e fraction]Ordered By: [facility] on 09-20-2023 Hematocrit (Bld) [Volume fraction] 41.8 % 37-47 [facility] Immature granulocytes/100 WB C Auto (Bld)Ordered By: [facility] on 09-20-2023 Immature granulocytes/100 WBC (Bld) 1.000 % 0.0-0.9 [facility] Comment on above: IG% - Immature Granu locytes (promyelocytes, myelocytes and metamyelocytes) > 1% indicates that a LEFT SHIFT is Present. Ketones Test strip Ql (U)Ord ered By: [facility] on 09-20-2023 Ketones Ql (U) 150 mg/dl Negative [facility] Comment on above: CRITICAL VALUE *HCRI TICAL VALUE VERIFIED. CALLED TO WILFREDO SALEEM (ER)09/20/23 1215 [address].RESULTS READ BACK BY SAME. Laboratory - Chemistry and C hemistry - challengeOrdered By: [facility] on 09-20-2023 CO2 [Moles/Vol] 21.0 mmol/L 21.0-32.0 [facility] Urea nitrogen/Creatinine [Mass ratio] 19.1 mg/mg 10-20 [facility] Laboratory - Hematology and Cell countsOrdered By: [facility] on 09-20-2023 MCH (RBC) [Entitic mass] 28.9 pg 27.0-32.0 [facility] MCHC (RBC) [Mass/Vol] 32.1 g/dL 32-36 [facility] Nucleated RBC/100 WBC (Bld) [Ratio] 0 % 0-5 [facility] Platelets (Bld) [#/Vol] 111 10*3/uL 150-450 [facility] Mucus LM Ql (Urine sed)Order ed By: Rm Chirinos on 09-20-2023 Mucus Ql (Urine sed) 0 SEEN /hpf [facility] Nitrite Test strip Ql (U)Ord ered By: Rm Chirinos on 09-20-2023 Nitrite Ql (U) Negative Negative [facility] No Panel InformationOrdered By: Rm Chirinos on 09-20-2023 Blood Gas Sample Site Not entered [facility] Blood Gas Specimen Type ISABELLE [facility] Oxygen Delivery Device Room Air [facility] Urine RBC 0 SEEN /hpf 0-5 [facility] Estimated Creatinine Clearance Calc 93.93 ml/min [facility] Estimated GFR (MDRD) Amer 85 mL/min >60 [facility] Comment on above: GFR Calc Estimated GFR (MDRD) Non-Af Amer 70 mL/min >60 [facility] Comment on above: Non- GFR Calc PCO2 venousOrdered By: Rm siddiqi on 09-20-2023 CO2 (BldV) [Partial pressure] 37.3 mm[Hg] 41-51 [facility] PO2 venousOrdered By: Rm sahni on 09-20-2023 Oxygen (BldV) [Partial pressure] 64 mm[Hg] 25-40 [facility] Platelet mean volume Dong-Ec ker (Bld) [Entitic vol]Ordered By: Rm Chirinos on 09-20-2023 Platelet mean volume (Bld) [Entitic vol] 13.3 fL 6.2-12.0 [facility] Protein Test strip Ql (U)Ord ered By: Rm Chirinos on 09-20-2023 Protein Ql (U) 15 mg/dl Negative [facility] RBC Auto (Bld) [#/Vol]Ordere d By: Rm Chirinos on 09-20-2023 RBC (Bld) [#/Vol] 4.63 10*6/uL 4.2-5.4 [facility] Serum or plasma calcium milli urement (mass/volume)Ordered By: Rm Chirinos on 09-20-2023 Calcium [Mass/Vol] 8.8 mg/dL 8.5-10.1 [facility] Serum or plasma creatinine m easurement (mass/volume)Ordered By: Rm Chirinos on 09-20-2023 Creatinine [Mass/Vol] 1.00 mg/dL 0.55-1.02 [facility] Comment on above: The validity of the calculated GFR & GFRAA in patients over 70 years has not been determined. Clinical correlation is essential. Serum or plasma urea nitroge n measurement (mass/volume)Ordered By: Rm Chirinos on 09-20-2023 Urea nitrogen [Mass/Vol] 19 mg/dL 7-18 [facility] Squamous epithelial cells de tection in urine sediment by light microscopyOrdered By: Rm Chirinos on 09-20-2023 Epithelial cells.squamous LM Ql (Urine sed) 0-5 SEEN /hpf 5-10 [facility] Thin prep Papanicolaou smear with manual screeningOrdered By: Rm Chirinos on 09-20-2023 Thin prep Papanicolaou smear with manual screening 264 mg/dL 74-106 [facility] Comment on above: MANAGEMENT OF PATIEN T CARE PER NURSING PROTOCOL Thin prep Papanicolaou smear with manual screening 9 5-15 [facility] Urine blood detectionOrdered By: Rm Chirinos on 09-20-2023 RBC Ql (U) Negative Negative [facility] Urine clarityOrdered By: Rm Chirinos on 09-20-2023 Clarity (U) Sl. Cloudy Clear [facility] Urine color determinationOrd ered By: Rm Chirinos on 09-20-2023 Color (U) Yellow Yellow [facility] Urine glucose detectionOrder ed By: Rm Chirinos on 09-20-2023 Glucose Ql (U) 1000 mg/dl Normal [facility] Urine leukocyte esterase det ection by dipstickOrdered By: Rm Chirinos on 09-20-2023 Leukocyte esterase Test strip Ql (U) Negative Negative [facility] Urine pHOrdered By: Rm pagan on 09-20-2023 pH (U) 6.0 [pH] 5.0 - 8.0 [facility] Urine sediment bacteria coun t by microscopy (number/high power field)Ordered By: Rm Chirinos on 09-20-2023 Bacteria LM.HPF (Urine sed) [#/Area] 0 /[HPF] None Seen [facility] Urine specific gravity measu rementOrdered By: Rm Chirinos on 09-20-2023 Specific gravity (U) [Rel density] 1.010 1.002-1.030 [facility] Urine urobilinogen measureme ntOrdered By: Rm Cooko on 09-20-2023 Urobilinogen Ql (U) Normal mg/dl Normal [facility] Venous blood bicarbonate penelope surementOrdered By: Rm Cooko on 09-20-2023 HCO3 (BldCoV) [Moles/Vol] 21 mmol/L 22-26 [facility] Venous blood oxygen saturati on (pure mass fraction)Ordered By: Rm Chirinos on 09-20-2023 SaO2% (BldV) [Pure mass fraction] 91 % 50-70 [facility] Venous blood pH measurementO rdered By: Rm Cooko on 09-20-2023 pH (BldV) 7.35 [pH] 7.32-7.42 [facility] Absolute lymphocyte countOrd ered By: Greg Philip on 09-06-2023 Lymphocytes Auto (Unsp spec) [#/Vol] 2.47 10*3/uL 0.83-4.51 [facility] Basophil percentageOrdered B y: Greg Philip on 09-06-2023 Basophil percentage 0-5 SEEN /hpf 0-5 [facility] Basophils/100 WBC (Bld) 0.4 % 0-1 [facility] Bilirubin [Mass/Vol] 0.50 mg/dL 0.20-1.00 [facility] Comment on above: For patients on eltr ombopag therapy, use of Dimension [place] TBIL is not recommended. Chloride [Moles/Vol] 111 mmol/L 98-107 [facility] Eosinophils/100 WBC (Bld) 0.7 % 0-5 [facility] Glucose [Mass/Vol] 101 mg/dL 74-106 [facility] Comment on above: Fasting Glucose resu lt from 100 to 125 mg/dL suggests IMPAIRED HOMEOSTASIS per A.D.A. criteria. Neutrophils (Bld) [#/Vol] 6.5 10*3/uL 2.0-7.7 [facility] Neutrophils/100 WBC (Bld) 67.1 % 47-70 [facility] Potassium [Moles/Vol] 3.9 mmol/L 3.5-5.1 [facility] Protein [Mass/Vol] 6.8 g/dL 6.4-8.2 [facility] Sodium [Moles/Vol] 142 mmol/L 136-145 [facility] WBC (Bld) [#/Vol] 9.6 10*3/uL 4.4-11.0 [facility] Beta hCG serum qualOrdered B y: Greg Philip on 09-06-2023 Beta HCG ( test) Ql Negative [facility] Bilirubin Test strip Ql (U)O rdered By: Greg Philip on 09-06-2023 Bilirubin Ql (U) Negative Negative [facility] Blood erythrocytes count (nu mber/volume)Ordered By: Greg Philip on 09-06-2023 RBC (Bld) [#/Vol] 4.34 10*6/uL 4.2-5.4 [facility] Blood hemoglobin measurement (mass/volume)Ordered By: Greg Philip on 09-06-2023 Hemoglobin (Bld) [Mass/Vol] 12.7 g/dL 12.0-15.0 [facility] Blood lymphocytes/100 leukoc ytesOrdered By: Greg Philip on 09-06-2023 Lymphocytes/100 WBC (Bld) 25.6 % 19-41 [facility] Blood monocytes/100 leukocyt esOrdered By: Greg Philip on 09-06-2023 Monocytes/100 WBC (Bld) 5.7 % 0-10 [facility] Blood platelet mean volumeOr dered By: Greg Philip on 09-06-2023 Platelet mean volume (Bld) [Entitic vol] 12.4 fL 6.2-12.0 [facility] Determination of erythrocyte mean corpuscular volume (MCV)Ordered By: Greg Philip on 09-06-2023 MCV (RBC) [Entitic vol] 91.0 fL 81-99 [facility] Hematocrit Auto (Bld) [Volum e fraction]Ordered By: Greg Philip on 09-06-2023 Hematocrit (Bld) [Volume fraction] 39.5 % 37-47 [facility] Ketones Test strip Ql (U)Ord ered By: Greg Philip on 09-06-2023 Ketones Ql (U) 5 mg/dl Negative [facility] Laboratory - Chemistry and C hemistry - challengeOrdered By: Greg Philip on 09-06-2023 ALP [Catalytic activity/Vol] 69 U/L 45-117 [facility] ALT [Catalytic activity/Vol] 47 U/L 13-56 [facility] CO2 [Moles/Vol] 27.0 mmol/L 21.0-32.0 [facility] Globulin (S) [Mass/Vol] 3.2 g/dL 2.2-4.2 [facility] Urea nitrogen/Creatinine [Mass ratio] 22.9 mg/mg 10-20 [facility] Laboratory - Hematology and Cell countsOrdered By: Greg Philip on 09-06-2023 Erythrocyte distribution width (RBC) [Entitic vol] 45.5 fL 35.1-43.9 [facility] Erythrocyte distribution width (RBC) [Ratio] 13.6 % 11.6-14.6 [facility] Immature granulocytes/100 WBC (Bld) 0.500 % 0.0-0.9 [facility] Comment on above: IG% - Immature Granu locytes (promyelocytes, myelocytes and metamyelocytes) > 1% indicates that a LEFT SHIFT is Present. MCH (RBC) [Entitic mass] 29.3 pg 27.0-32.0 [facility] Nucleated RBC/100 WBC (Bld) [Ratio] 0 % 0-5 [facility] MCHC Auto (RBC) [Mass/Vol]Or dered By: Greg Philip on 09-06-2023 MCHC (RBC) [Mass/Vol] 32.2 g/dL 32-36 [facility] Mucus LM Ql (Urine sed)Order ed By: Greg Philip on 09-06-2023 Mucus Ql (Urine sed) 1+ /hpf [facility] Nitrite Test strip Ql (U)Ord ered By: Greg Philip on 09-06-2023 Nitrite Ql (U) Negative Negative [facility] No Panel InformationOrdered By: Greg Philip on 09-06-2023 Estimated Creatinine Clearance Calc 131.44 ml/min [facility] Estimated GFR (MDRD) Amer 137 mL/min >60 [facility] Comment on above: GFR Calc Estimated GFR (MDRD) Non-Af Amer 113 mL/min >60 [facility] Comment on above: Non- GFR Calc Platelets bldOrdered By: Allyn Philip on 09-06-2023 Platelets (Bld) [#/Vol] 144 10*3/uL 150-450 [facility] Protein Test strip Ql (U)Ord ered By: Greg Philip on 09-06-2023 Protein Ql (U) 15 mg/dl Negative [facility] Serum or plasma albumin milli urement (mass/volume)Ordered By: Greg Philip on 09-06-2023 Albumin [Mass/Vol] 3.6 g/dL 3.2-5.0 [facility] Serum or plasma albumin/glob ulin mass ratioOrdered By: Greg Philip on 09-06-2023 Albumin/Globulin [Mass ratio] 1.1 {ratio} 0.9-2.4 [facility] Serum or plasma calcium milli urement (mass/volume)Ordered By: Greg Philip on 09-06-2023 Calcium [Mass/Vol] 8.5 mg/dL 8.5-10.1 [facility] Serum or plasma creatinine m easurement (mass/volume)Ordered By: Greg Philip on 09-06-2023 Creatinine [Mass/Vol] 0.66 mg/dL 0.55-1.02 [facility] Comment on above: The validity of the calculated GFR & GFRAA in patients over 70 years has not been determined. Clinical correlation is essential. Serum or plasma urea nitroge n measurement (mass/volume)Ordered By: Greg Philip on 09-06-2023 Urea nitrogen [Mass/Vol] 15 mg/dL 7-18 [facility] Squamous epithelial cells de tection in urine sediment by light microscopyOrdered By: Greg Philip on 09-06-2023 Epithelial cells.squamous LM Ql (Urine sed) 5-10 SEEN /hpf 5-10 [facility] Thin prep Papanicolaou smear with manual screeningOrdered By: Greg Philip on 09-06-2023 Thin prep Papanicolaou smear with manual screening 28 U/L 15-37 [facility] Thin prep Papanicolaou smear with manual screening 4 5-15 [facility] Urine blood detectionOrdered By: Greg Philip on 09-06-2023 RBC Ql (U) Negative Negative [facility] RBC Ql (U) 0 SEEN /hpf 0-5 [facility] Urine clarityOrdered By: Allyn Philip on 09-06-2023 Clarity (U) Clear Clear [facility] Urine color determinationOrd ered By: Greg Philip on 09-06-2023 Color (U) Yellow Yellow [facility] Urine glucose detectionOrder ed By: Greg Philip on 09-06-2023 Glucose Ql (U) 50 mg/dl Normal [facility] Urine leukocyte esterase det ection by dipstickOrdered By: Greg Philip on 09-06-2023 Leukocyte esterase Test strip Ql (U) Negative Negative [facility] Urine pHOrdered By: Greg sun on 09-06-2023 pH (U) 6.5 [pH] 5.0 - 8.0 [facility] Urine sediment bacteria coun t by microscopy (number/high power field)Ordered By: Greg Philip on 09-06-2023 Bacteria LM.HPF (Urine sed) [#/Area] 0 /[HPF] None Seen [facility] Urine specific gravity measu rementOrdered By: Greg Philip on 09-06-2023 Specific gravity (U) [Rel density] 1.020 1.002-1.030 [facility] Urobilinogen Auto test strip Ql (U)Ordered By: Greg Philip on 09-06-2023 Urobilinogen Ql (U) 1 mg/dl Normal [facility] Absolute lymphocyte countOrd ered By: Marc Carl on 08-22-2023 Lymphocytes Auto (Unsp spec) [#/Vol] 2.29 10*3/uL 0.83-4.51 [facility] Basophil percentageOrdered B y: Marc Carl on 08-22-2023 Basophil percentage 0 SEEN /hpf 0-5 [facility] Basophils/100 WBC (Bld) 0.6 % 0-1 [facility] Bilirubin [Mass/Vol] 0.50 mg/dL 0.20-1.00 [facility] Comment on above: For patients on eltr ombopag therapy, use of Dimension [place] TBIL is not recommended. Chloride [Moles/Vol] 106 mmol/L 98-107 [facility] Eosinophils/100 WBC (Bld) 0.9 % 0-5 [facility] Glucose [Mass/Vol] 397 mg/dL 74-106 [facility] Comment on above: Glucose result great er than or equal to 200 mg/dLsuggests DIABETES MELLITUS per A.D.A. criteria. Neutrophils (Bld) [#/Vol] 4.8 10*3/uL 2.0-7.7 [facility] Neutrophils/100 WBC (Bld) 60.5 % 47-70 [facility] Potassium [Moles/Vol] 4.1 mmol/L 3.5-5.1 [facility] Protein [Mass/Vol] 6.6 g/dL 6.4-8.2 [facility] Sodium [Moles/Vol] 138 mmol/L 136-145 [facility] WBC (Bld) [#/Vol] 8.0 10*3/uL 4.4-11.0 [facility] Bilirubin Test strip Ql (U)O rdered By: Marc Carl on 08-22-2023 Bilirubin Ql (U) Negative Negative [facility] Blood erythrocytes count (nu mber/volume)Ordered By: Marc Carl on 08-22-2023 RBC (Bld) [#/Vol] 4.04 10*6/uL 4.2-5.4 [facility] Blood hemoglobin measurement (mass/volume)Ordered By: Marc Carl on 08-22-2023 Hemoglobin (Bld) [Mass/Vol] 11.6 g/dL 12.0-15.0 [facility] Blood lymphocytes/100 leukoc ytesOrdered By: Marc Carl on 08-22-2023 Lymphocytes/100 WBC (Bld) 28.7 % 19-41 [facility] Blood monocytes/100 leukocyt esOrdered By: Marc Carl on 08-22-2023 Monocytes/100 WBC (Bld) 7.9 % 0-10 [facility] Blood platelet mean volumeOr dered By: Marc Carl on 08-22-2023 Platelet mean volume (Bld) [Entitic vol] 12.0 fL 6.2-12.0 [facility] Determination of erythrocyte mean corpuscular volume (MCV)Ordered By: Marc Carl on 08-22-2023 MCV (RBC) [Entitic vol] 92.3 fL 81-99 [facility] Glucose Glucometer (BldC) [M ass/Vol]Ordered By: Marc Carl on 08-22-2023 Glucose [Mass/Vol] 207 mg/dL 74-106 [facility] Comment on above: MANAGEMENT OF PATIEN T CARE PER NURSING PROTOCOL Hematocrit Auto (Bld) [Volum e fraction]Ordered By: Marc Carl on 08-22-2023 Hematocrit (Bld) [Volume fraction] 37.3 % 37-47 [facility] Ketones Test strip Ql (U)Ord ered By: Marc Carl on 08-22-2023 Ketones Ql (U) 5 mg/dl Negative [facility] Laboratory - Chemistry and C hemistry - challengeOrdered By: Marc Carl on 08-22-2023 ALP [Catalytic activity/Vol] 72 U/L 45-117 [facility] ALT [Catalytic activity/Vol] 87 U/L 13-56 [facility] CO2 [Moles/Vol] 27.0 mmol/L 21.0-32.0 [facility] Globulin (S) [Mass/Vol] 3.3 g/dL 2.2-4.2 [facility] Urea nitrogen/Creatinine [Mass ratio] 13.4 mg/mg 10-20 [facility] Laboratory - Hematology and Cell countsOrdered By: Marc Carl on 08-22-2023 Erythrocyte distribution width (RBC) [Entitic vol] 45.2 fL 35.1-43.9 [facility] Erythrocyte distribution width (RBC) [Ratio] 13.4 % 11.6-14.6 [facility] Immature granulocytes/100 WBC (Bld) 1.400 % 0.0-0.9 [facility] Comment on above: IG% - Immature Granu locytes (promyelocytes, myelocytes and metamyelocytes) > 1% indicates that a LEFT SHIFT is Present. MCH (RBC) [Entitic mass] 28.7 pg 27.0-32.0 [facility] Nucleated RBC/100 [facility] (Bld) [[facility]] 0 [facility] [[facility]/Vol]Or dered By: Marc Carl on 08-22-2023 MCHC (RBC) [Mass/Vol] 31.1 g/dL 32-36 [facility] Mucus LM Ql (Urine sed)Order ed By: Marc Carl on 08-22-2023 Mucus Ql (Urine sed) 0 SEEN /hpf [facility] Nitrite Test strip Ql (U)Ord ered By: Marc Carl on 08-22-2023 Nitrite Ql (U) Negative Negative [facility] No Panel InformationOrdered By: Marc Carl on 08-22-2023 Estimated Creatinine Clearance Calc 96.39 ml/min [facility] Estimated GFR (MDRD) Amer 95 mL/min >60 [facility] Comment on above: GFR Calc Estimated GFR (MDRD) Non-Af Amer 79 mL/min >60 [facility] Comment on above: Non- GFR Calc Platelets bldOrdered By: Filipe Carl on 08-22-2023 Platelets (Bld) [#/Vol] 206 10*3/uL 150-450 [facility] Protein Test strip Ql (U)Ord ered By: Marc Carl on 08-22-2023 Protein Ql (U) Negative Negative [facility] Serum or plasma albumin milli urement (mass/volume)Ordered By: Marc Carl on 08-22-2023 Albumin [Mass/Vol] 3.3 g/dL 3.2-5.0 [facility] Serum or plasma albumin/glob ulin mass ratioOrdered By: Marc Carl on 08-22-2023 Albumin/Globulin [Mass ratio] 1.0 {ratio} 0.9-2.4 [facility] Serum or plasma calcium milli urement (mass/volume)Ordered By: Marc Carl on 08-22-2023 Calcium [Mass/Vol] 8.4 mg/dL 8.5-10.1 [facility] Serum or plasma creatinine m easurement (mass/volume)Ordered By: Marc Carl on 08-22-2023 Creatinine [Mass/Vol] 0.90 mg/dL 0.55-1.02 [facility] Comment on above: The validity of the calculated GFR & GFRAA in patients over 70 years has not been determined. Clinical correlation is essential. Serum or plasma urea nitroge n measurement (mass/volume)Ordered By: Marc Carl on 08-22-2023 Urea nitrogen [Mass/Vol] 12 mg/dL 7-18 [facility] Squamous epithelial cells de tection in urine sediment by light microscopyOrdered By: Marc Carl on 08-22-2023 Epithelial cells.squamous LM Ql (Urine sed) 0-5 SEEN /hpf 5-10 [facility] Thin prep Papanicolaou smear with manual screeningOrdered By: Marc Carl on 08-22-2023 Thin prep Papanicolaou smear with manual screening 36 U/L 15-37 [facility] Thin prep Papanicolaou smear with manual screening 5 5-15 [facility] Urine blood detectionOrdered By: Marc Carl on 08-22-2023 RBC Ql (U) Negative Negative [facility] RBC Ql (U) 0 SEEN /hpf 0-5 [facility] Urine clarityOrdered By: Filipe Carl on 08-22-2023 Clarity (U) Clear Clear [facility] Urine color determinationOrd ered By: Marc Carl on 08-22-2023 Color (U) Yellow Yellow [facility] Urine glucose detectionOrder ed By: Marc Carl on 08-22-2023 Glucose Ql (U) 1000 mg/dl Normal [facility] Urine leukocyte esterase det ection by dipstickOrdered By: Marc Carl on 08-22-2023 Leukocyte esterase Test strip Ql (U) Negative Negative [facility] Urine pHOrdered By: Marc griffiths on 08-22-2023 pH (U) 8.0 [pH] 5.0 - 8.0 [facility] Urine sediment bacteria coun t by microscopy (number/high power field)Ordered By: Marc Carl on 08-22-2023 Bacteria LM.HPF (Urine sed) [#/Area] 0 /[HPF] None Seen [facility] Urine specific gravity measu rementOrdered By: Marc Carl on 08-22-2023 Specific gravity (U) [Rel density] 1.010 1.002-1.030 [facility] Urobilinogen Auto test strip Ql (U)Ordered By: Marc Meseret on 08-22-2023 Urobilinogen Ql (U) Normal mg/dl Normal [facility] Basophil percentageOrdered B y: Dangelo Encarnacion on 08-10-2023 Chloride [Moles/Vol] 109 mmol/L 98-107 [facility] Glucose [Mass/Vol] 195 mg/dL 74-106 [facility] Comment on above: Fasting Glucose resu lt greater than or equal to 126 mg/dL suggests DIABETES MELLITUS per A.D.A. criteria. Potassium [Moles/Vol] 3.7 mmol/L 3.5-5.1 [facility] Sodium [Moles/Vol] 139 mmol/L 136-145 [facility] WBC (Bld) [#/Vol] 8.5 10*3/uL 4.4-11.0 [facility] Blood erythrocytes count (nu mber/volume)Ordered By: Dangelo Encarnacion on 08-10-2023 RBC (Bld) [#/Vol] 4.50 10*6/uL 4.2-5.4 [facility] Blood hemoglobin measurement (mass/volume)Ordered By: Dangelo Encarnacion on 08-10-2023 Hemoglobin (Bld) [Mass/Vol] 13.0 g/dL 12.0-15.0 [facility] Blood platelet mean volumeOr dered By: Dangelo Encarnacion on 08-10-2023 Platelet mean volume (Bld) [Entitic vol] 11.8 fL 6.2-12.0 [facility] Determination of erythrocyte mean corpuscular volume (MCV)Ordered By: Dangelo Encarnacion on 08-10-2023 MCV (RBC) [Entitic vol] 88.2 fL 81-99 [facility] Glucose Glucometer (BldC) [M ass/Vol]Ordered By: Dangelo Encarnacion on 08-10-2023 Glucose [Mass/Vol] 208 mg/dL 74-106 [facility] Comment on above: MANAGEMENT OF PATIEN T CARE PER NURSING PROTOCOL Hematocrit Auto (Bld) [Volum e fraction]Ordered By: Dangelo Encarnacion on 08-10-2023 Hematocrit (Bld) [Volume fraction] 39.7 % 37-47 [facility] Laboratory - Chemistry and C hemistry - challengeOrdered By: Dangelo Encarnacion on 08-10-2023 CO2 [Moles/Vol] 20.0 mmol/L 21.0-32.0 [facility] Urea nitrogen/Creatinine [Mass ratio] 15.4 mg/mg 10-20 [facility] Laboratory - Hematology and Cell countsOrdered By: Dangelo Encarnacion on 08-10-2023 Erythrocyte distribution width (RBC) [Entitic vol] 42.0 fL 35.1-43.9 [facility] Erythrocyte distribution width (RBC) [Ratio] 12.9 % 11.6-14.6 [facility] MCH (RBC) [Entitic mass] 28.9 pg 27.0-32.0 [facility] MCHC Auto (RBC) [Mass/Vol]Or dered By: Dangelo Encarnacion on 08-10-2023 MCHC (RBC) [Mass/Vol] 32.7 g/dL 32-36 [facility] No Panel InformationOrdered By: Dangelo Encarnacion on 08-10-2023 Estimated Creatinine Clearance Calc 149.57 ml/min [facility] Estimated GFR (MDRD) Amer 157 mL/min >60 [facility] Comment on above: GFR Calc Estimated GFR (MDRD) Non-Af Amer 129 mL/min >60 [facility] Comment on above: Non- GFR Calc Platelets bldOrdered By: Lauren Encarnacion on 08-10-2023 Platelets (Bld) [#/Vol] 109 10*3/uL 150-450 [facility] Serum or plasma calcium milli urement (mass/volume)Ordered By: Dangelo Encarnacion on 08-10-2023 Calcium [Mass/Vol] 8.0 mg/dL 8.5-10.1 [facility] Serum or plasma creatinine m easurement (mass/volume)Ordered By: Dangelo Encarnacion on 08-10-2023 Creatinine [Mass/Vol] 0.58 mg/dL 0.55-1.02 [facility] Comment on above: The validity of the calculated GFR & GFRAA in patients over 70 years has not been determined. Clinical correlation is essential. Serum or plasma urea nitroge n measurement (mass/volume)Ordered By: Dangelo Encarnacion on 08-10-2023 Urea nitrogen [Mass/Vol] 9 mg/dL 7-18 [facility] Thin prep Papanicolaou smear with manual screeningOrdered By: Dangelo Encarnacion on 08-10-2023 Thin prep Papanicolaou smear with manual screening 10 5-15 [facility] Basophil percentageOrdered B y: Lul Singh on 08-07-2023 Lactate [Moles/Vol] 2.2 mmol/L 0.4-2.0 [facility] Comment on above: Critical Result(s) C alled at: 06:54:28 08/07/2023 by: Reid Rogers. To Jude Hopkins RN (ICU). Results read back by same. HCO3 (BldA) [Moles/Vol]Order ed By: Vamsi Lewis on 08-07-2023 HCO3 (Bld) [Moles/Vol] 12 mmol/L 22- [facility] Laboratory - Chemistry and C hemistry - challengeOrdered By: Vamsi Lewis on 08-07-2023 CO2 [Moles/Vol] 13 mmol/L 23-33 [facility] Magnesium [Mass/Vol] 1.8 mg/dL 1.6-2.6 [facility] Comment on above: Slight Hemolysis, Re sult may be falsely increased. No Panel InformationOrdered By: Vamsi Lewis on 08-07-2023 Bed Mix Venous Bld PCO2 at Pat Temp 28.0 mmHg 41-51 [facility] Blood Gas Oxygen Percent 21.0 [facility] Blood Gas Sample Site Not entered [facility] Blood Gas Specimen Type ISABELLE [facility] Oxygen Delivery Device Not entered [facility] Venous Blood Base Excess -16 mmol/L -1.0-3.5 [facility] PO2 venousOrdered By: Vamsi Lewis on 08-07-2023 Oxygen (BldV) [Partial pressure] 52 mm[Hg] 25-40 [facility] Respiratory pathogens detect ion panel by molecular detection methodOrdered By: Vamsi Lewis on 08-07-2023 Respiratory pathogens DNA and RNA panel DANIEL+probe (Resp) [facility] Respiratory pathogens DNA and RNA panel DANIEL+probe (Resp) [facility] Serum or plasma acetone milli urement (mass/volume)Ordered By: Vamsi Lewis on 08-07-2023 Acetone [Mass/Vol] MODERATE NEG [facility] Vital signsOrdered By: Vamsi Lewis on 08-07-2023 Oxygen saturation in Blood 81 % 50-70 [facility] Whole blood hemoglobin A1c/t otal hemoglobin ratio (mass fraction)Ordered By: Vamsi Lewis on 08-07-2023 HbA1c (Bld) [Mass fraction] 7.0 % 3.8-5.6 [facility] Comment on above: Normal < 5.7 % Predi abetic 5.7 - 6.4 % Diabetic >or= 6.5 % Please note range changes. pH measurementOrdered By: Miller morroangel Lewis on 08-07-2023 pH (Unsp spec) 7.24 [pH] 7.32-7.42 [facility] Absolute lymphocyte countOrd ered By: Lul Singh on 08-06-2023 Lymphocytes Auto (Unsp spec) [#/Vol] 0.42 10*3/uL 0.83-4.51 [facility] Absolute lymphocyte countOrd ered By: Juan Marquez on 08-06-2023 Lymphocytes Auto (Unsp spec) [#/Vol] 1.08 10*3/uL 0.83-4.51 [facility] Basophil percentageOrdered B y: Lul Singh on 08-06-2023 Basophils/100 WBC (Bld) 0.5 % 0-1 [facility] Chloride [Moles/Vol] 101 mmol/L 98-107 [facility] Eosinophils/100 WBC (Bld) 0.0 % 0-5 [facility] Glucose [Mass/Vol] 548 mg/dL 74-106 [facility] Comment on above: Critical Result(s) C alled at: 23:51:02 08/06/2023 by: Jay Hill. to Matthew (RN) (ED) Results read back by same.Glucose result greater than or equal to 200 mg/dLsuggests DIABETES MELLITUS per A.D.A. criteria. Lactate [Moles/Vol] 4.4 mmol/L 0.4-2.0 [facility] Comment on above: Critical Result(s) C alled at: 23:51:02 08/06/2023 by: Jay Hill. to Matthew AcuñaRN) (ED) Results read back by same. Neutrophils (Bld) [#/Vol] 18.8 10*3/uL 2.0-7.7 [facility] Neutrophils/100 WBC (Bld) 92.7 % 47-70 [facility] Potassium [Moles/Vol] 4.8 mmol/L 3.5-5.1 [facility] Sodium [Moles/Vol] 132 mmol/L 136-145 [facility] WBC (Bld) [#/Vol] 20.3 10*3/uL 4.4-11.0 [facility] Basophil percentage 0 SEEN /hpf 0-5 [facility] Basophil percentageOrdered B y: Juan Marquez on 08-06-2023 Basophils/100 WBC (Bld) 0.2 % 0-1 [facility] Bilirubin [Mass/Vol] 0.70 mg/dL 0.20-1.00 [facility] Comment on above: For patients on eltr ombopag therapy, use of Dimension [place] TBIL is not recommended. Chloride [Moles/Vol] 108 mmol/L 98-107 [facility] Eosinophils/100 WBC (Bld) 0.1 % 0-5 [facility] Glucose [Mass/Vol] 69 mg/dL 74-106 [facility] Neutrophils (Bld) [#/Vol] 19.2 10*3/uL 2.0-7.7 [facility] Neutrophils/100 WBC (Bld) 87.7 % 47-70 [facility] Potassium [Moles/Vol] 3.3 mmol/L 3.5-5.1 [facility] Protein [Mass/Vol] 7.5 g/dL 6.4-8.2 [facility] Sodium [Moles/Vol] 139 mmol/L 136-145 [facility] WBC (Bld) [#/Vol] 21.9 10*3/uL 4.4-11.0 [facility] Beta hCG serum qualOrdered B y: Juan Marquez on 08-06-2023 Beta HCG ( test) Ql Negative [facility] Bilirubin Test strip Ql (U)O rdered By: Lul Singh on 08-06-2023 Bilirubin Ql (U) Negative Negative [facility] Blood erythrocytes count (nu mber/volume)Ordered By: Lul Singh on 08-06-2023 RBC (Bld) [#/Vol] 4.35 10*6/uL 4.2-5.4 [facility] Blood erythrocytes count (nu mber/volume)Ordered By: Juan Marquez on 08-06-2023 RBC (Bld) [#/Vol] 5.03 10*6/uL 4.2-5.4 [facility] Blood hemoglobin measurement (mass/volume)Ordered By: Lul Singh on 08-06-2023 Hemoglobin (Bld) [Mass/Vol] 12.6 g/dL 12.0-15.0 [facility] Blood hemoglobin measurement (mass/volume)Ordered By: Juan Marquez on 08-06-2023 Hemoglobin (Bld) [Mass/Vol] 14.7 g/dL 12.0-15.0 [facility] Blood lymphocytes/100 leukoc ytesOrdered By: Lul Singh on 08-06-2023 Lymphocytes/100 WBC (Bld) 2.1 % [facility] Blood lymphocytes/100 leukoc ytesOrdered By: Juan Marquez on 08-06-2023 Lymphocytes/100 WBC (Bld) 4.9 % [facility] Blood manual differential co mment interpretation (narrative result)Ordered By: Lul Singh on 08-06-2023 Manual differential comment Faraz (Bld) [Interp] SCANNED [facility] Comment on above: LYMPHOPENIA PRESENT Blood monocytes/100 leukocyt esOrdered By: Lul Singh on 08-06-2023 Monocytes/100 WBC (Bld) 2.0 % [facility] Blood monocytes/100 leukocyt esOrdered By: Juan Marquez on 08-06-2023 Monocytes/100 WBC (Bld) 5.6 % [facility] Blood platelet mean volumeOr dered By: Lul Singh on 08-06-2023 Platelet mean volume (Bld) [Entitic vol] 13.8 fL 6.2-12.0 [facility] Blood platelet mean volumeOr dered By: Juan Marquez on 08-06-2023 Platelet mean volume (Bld) [Entitic vol] 12.1 fL 6.2-12.0 [facility] Determination of erythrocyte mean corpuscular volume (MCV)Ordered By: Lul Singh on 08-06-2023 MCV (RBC) [Entitic vol] 93.1 fL 81-99 [facility] Determination of erythrocyte mean corpuscular volume (MCV)Ordered By: Juan Marquez on 08-06-2023 MCV (RBC) [Entitic vol] 88.9 fL 81-99 [facility] Glucose Glucometer (BldC) [M ass/Vol]Ordered By: Juan Marquez on 08-06-2023 Glucose [Mass/Vol] 397 mg/dL 74-106 [facility] Comment on above: MANAGEMENT OF PATIEN T CARE PER NURSING PROTOCOL HCO3 (BldA) [Moles/Vol]Order ed By: Lul Singh on 08-06-2023 HCO3 (Bld) [Moles/Vol] 12 mmol/L 22-26 [facility] Hematocrit Auto (Bld) [Volum e fraction]Ordered By: Lul Singh on 08-06-2023 Hematocrit (Bld) [Volume fraction] 40.5 % 37-47 [facility] Hematocrit Auto (Bld) [Volum e fraction]Ordered By: Juan Marquez on 08-06-2023 Hematocrit (Bld) [Volume fraction] 44.7 % 37-47 [facility] Ketones Test strip Ql (U)Ord ered By: Lul Singh on 08-06-2023 Ketones Ql (U) 150 mg/dl Negative [facility] Comment on above: CRITICAL VALUE *HCRI TICAL VALUE VERIFIED. CALLED TO AIATUA68/11/23 [address] [place].RESULTS READ BACK BY SAME. Laboratory - Chemistry and C hemistry - challengeOrdered By: Lul Singh on 08-06-2023 CO2 [Moles/Vol] 13 mmol/L 23-33 [facility] CO2 [Moles/Vol] 14.0 mmol/L 21.0-32.0 [facility] Magnesium [Mass/Vol] 2.0 mg/dL 1.6-2.6 [facility] Urea nitrogen/Creatinine [Mass ratio] 16.1 mg/mg 10-20 [facility] Laboratory - Chemistry and C hemistry - challengeOrdered By: Juan Marquez on 08-06-2023 ALP [Catalytic activity/Vol] 94 U/L 45-117 [facility] ALT [Catalytic activity/Vol] 32 U/L 13-56 [facility] CO2 [Moles/Vol] 26.0 mmol/L 21.0-32.0 [facility] Globulin (S) [Mass/Vol] 3.6 g/dL 2.2-4.2 [facility] Lipase [Catalytic activity/Vol] 16 U/L 13-75 [facility] Comment on above: Please note:LIPASE r evised reference range effective 22. New Lipase methodology. Expected to produce lower values than the previous assay method. NEW Reference Range: 13 - 75 U/L Urea nitrogen/Creatinine [Mass ratio] 20.0 mg/mg 10-20 [facility] Laboratory - Hematology and Cell countsOrdered By: Lul Singh on 08-06-2023 Erythrocyte distribution width (RBC) [Entitic vol] 45.1 fL 35.1-43.9 [facility] Erythrocyte distribution width (RBC) [Ratio] 13.2 % 11.6-14.6 [facility] Immature granulocytes/100 WBC (Bld) 2.700 % 0.0-0.9 [facility] Comment on above: IG% - Immature Granu locytes (promyelocytes, myelocytes and metamyelocytes) > 1% indicates that a LEFT SHIFT is Present. MCH (RBC) [Entitic mass] 29.0 pg 27.0-32.0 [facility] Nucleated RBC/100 WBC (Bld) [Ratio] 0 % 0-5 [facility] Laboratory - Hematology and Cell countsOrdered By: Juan Marquez on 08-06-2023 Erythrocyte distribution width (RBC) [Entitic vol] 42.0 fL 35.1-43.9 [facility] Erythrocyte distribution width (RBC) [Ratio] 12.9 % 11.6-14.6 [facility] Immature granulocytes/100 WBC (Bld) 1.500 % 0.0-0.9 [facility] Comment on above: IG% - Immature Granu locytes (promyelocytes, myelocytes and metamyelocytes) > 1% indicates that a LEFT SHIFT is Present. MCH (RBC) [Entitic mass] 29.2 pg 27.0-32.0 [facility] Nucleated RBC/100 WBC (Bld) [Ratio] 0 % 0-5 [facility] MCHC Auto (RBC) [Mass/Vol]Or dered By: Lul Singh on 08-06-2023 MCHC (RBC) [Mass/Vol] 31.1 g/dL 32-36 [facility] Comment on above: Delta: 32.9 on 08/06 MCHC Auto (RBC) [Mass/Vol]Or dered By: Juan Marquez on 08-06-2023 MCHC (RBC) [Mass/Vol] 32.9 g/dL 32-36 [facility] Mucus LM Ql (Urine sed)Order ed By: Lul Singh on 08-06-2023 Mucus Ql (Urine sed) 0 SEEN /hpf [facility] Nitrite Test strip Ql (U)Ord ered By: Lul Singh on 08-06-2023 Nitrite Ql (U) Negative Negative [facility] No Panel InformationOrdered By: Lul Singh on 08-06-2023 Bed Mix Venous Bld PCO2 at Pat Temp 22.9 mmHg 41-51 [facility] Blood Gas Sample Site Not entered [facility] Blood Gas Specimen Type ISABELLE [facility] Oxygen Delivery Device Room Air [facility] Venous Blood Base Excess -14 mmol/L -1.0-3.5 [facility] Estimated Creatinine Clearance Calc 73.52 ml/min [facility] Estimated GFR (MDRD) Amer 70 mL/min >60 [facility] Comment on above: GFR Calc Estimated GFR (MDRD) Non-Af Amer 58 mL/min >60 [facility] Comment on above: Non- GFR Calc No Panel InformationOrdered By: Juan Marquez on 08-06-2023 Estimated Creatinine Clearance Calc 108.44 ml/min [facility] Estimated GFR (MDRD) Amer 109 mL/min >60 [facility] Comment on above: GFR Calc Estimated GFR (MDRD) Non-Af Amer 90 mL/min >60 [facility] Comment on above: Non- GFR Calc PO2 venousOrdered By: Lul Singh on 08-06-2023 Oxygen (BldV) [Partial pressure] 58 mm[Hg] 25-40 [facility] Platelets bldOrdered By: Lane Singh on 08-06-2023 Platelets (Bld) [#/Vol] 140 10*3/uL 150-450 [facility] Platelets bldOrdered By: Lauren Marquez on 08-06-2023 Platelets (Bld) [#/Vol] 199 10*3/uL 150-450 [facility] Protein Test strip Ql (U)Ord ered By: Lul Singh on 08-06-2023 Protein Ql (U) Negative Negative [facility] Serum or plasma acetone milli urement (mass/volume)Ordered By: Lul Singh on 08-06-2023 Acetone [Mass/Vol] SMALL NEG [facility] Serum or plasma albumin milli urement (mass/volume)Ordered By: Juan Marquez on 08-06-2023 Albumin [Mass/Vol] 3.9 g/dL 3.2-5.0 [facility] Serum or plasma albumin/glob ulin mass ratioOrdered By: Juan Marquez on 08-06-2023 Albumin/Globulin [Mass ratio] 1.1 {ratio} 0.9-2.4 [facility] Serum or plasma calcium milli urement (mass/volume)Ordered By: Lul Singh on 08-06-2023 Calcium [Mass/Vol] 9.1 mg/dL 8.5-10.1 [facility] Serum or plasma calcium milli urement (mass/volume)Ordered By: Juan Marquez on 08-06-2023 Calcium [Mass/Vol] 9.6 mg/dL 8.5-10.1 [facility] Serum or plasma creatinine m easurement (mass/volume)Ordered By: Lul Singh on 08-06-2023 Creatinine [Mass/Vol] 1.18 mg/dL 0.55-1.02 [facility] Comment on above: The validity of the calculated GFR & GFRAA in patients over 70 years has not been determined. Clinical correlation is essential. Serum or plasma creatinine m easurement (mass/volume)Ordered By: Juan Marquez on 08-06-2023 Creatinine [Mass/Vol] 0.80 mg/dL 0.55-1.02 [facility] Comment on above: The validity of the calculated GFR & GFRAA in patients over 70 years has not been determined. Clinical correlation is essential. Serum or plasma urea nitroge n measurement (mass/volume)Ordered By: Lul Singh on 08-06-2023 Urea nitrogen [Mass/Vol] 19 mg/dL - [facility] Serum or plasma urea nitroge n measurement (mass/volume)Ordered By: Juan Marquez on 08-06-2023 Urea nitrogen [Mass/Vol] 16 mg/dL - [facility] Squamous epithelial cells de tection in urine sediment by light microscopyOrdered By: Lul Singh on 08-06-2023 Epithelial cells.squamous LM Ql (Urine sed) 0-5 SEEN /hpf -10 [facility] Thin prep Papanicolaou smear with manual screeningOrdered By: Lul Singh on 08-06-2023 Thin prep Papanicolaou smear with manual screening 17 5-15 [facility] Thin prep Papanicolaou smear with manual screeningOrdered By: Juan Marquez on 08-06-2023 Thin prep Papanicolaou smear with manual screening 15 U/L 15-37 [facility] Thin prep Papanicolaou smear with manual screening 5 5-15 [facility] Urine blood detectionOrdered By: Lul Singh on 08-06-2023 RBC Ql (U) 10 /ul Negative [facility] RBC Ql (U) 0 SEEN /hpf 0-5 [facility] Urine clarityOrdered By: Lane Singh on 08-06-2023 Clarity (U) Clear Clear [facility] Urine color determinationOrd ered By: Lul Singh on 08-06-2023 Color (U) Yellow Yellow [facility] Urine glucose detectionOrder ed By: Lul Singh on 08-06-2023 Glucose Ql (U) 1000 mg/dl Normal [facility] Urine leukocyte esterase det ection by dipstickOrdered By: Lul Singh on 08-06-2023 Leukocyte esterase Test strip Ql (U) Negative Negative [facility] Urine pHOrdered By: Lul fontaine on 08-06-2023 pH (U) 5.0 [pH] 5.0 - 8.0 [facility] Urine sediment bacteria coun t by microscopy (number/high power field)Ordered By: Lul Singh on 08-06-2023 Bacteria LM.HPF (Urine sed) [#/Area] 0 /[HPF] None Seen [facility] Urine specific gravity measu rementOrdered By: Lul Singh on 08-06-2023 Specific gravity (U) [Rel density] 1.015 1.002-1.030 [facility] Urobilinogen Auto test strip Ql (U)Ordered By: Lul Singh on 08-06-2023 Urobilinogen Ql (U) Normal mg/dl Normal [facility] Vital signsOrdered By: Partha Singh on 08-06-2023 Oxygen saturation in Blood 89 % 50-70 [facility] pH measurementOrdered By: Yarelis Singh on 08-06-2023 pH (Unsp spec) 7.34 [pH] 7.32-7.42 [facility] CBC panel Auto (Bld)on 07-12 Erythrocyte distribution width (RBC) [Ratio] 13.3 % Normal 11.5-15.0 [facility] Comment on above: Order Comment: Speci men Type: BLOOD SPECIMEN Ordering Facility: [facility] Address: [address] [place], [place] [address] Performed By: #### 3 1201-7, 5195-3, 01820-7, SYPH #### [facility] CLIA [id number] [address] [place] [address] [place] Hematocrit (Bld) [Volume fraction] 44.2 % Normal 36.0-46.0 [facility] Comment on above: Order Comment: Speci men Type: BLOOD SPECIMEN Ordering Facility: [facility] Address: [address] [place], [place] [address] Performed By: #### 3 1201-7, 5195-3, 27687-4, SYPH #### [facility] CLIA [id number] [address] [place] [address] [place] Hemoglobin (Bld) [Mass/Vol] 14.8 g/dL Normal 11.5-15.5 [facility] Comment on above: Order Comment: Speci men Type: BLOOD SPECIMEN Ordering Facility: [facility] Address: [address] [address] Performed By: #### 3 1201-7, 5195-3, 67676-8, SYPH #### [facility] CLIA [id number] [address] [place] [address] [place] [facility] MCH (RBC) [Entitic mass] 29.4 pg Normal 26.0-34.0 [facility] Comment on above: Order Comment: Speci men Type: BLOOD SPECIMEN Ordering Facility: [facility] Address: [address] [address] Performed By: #### 3 1201-7, 5195-3, 33648-4, SYPH #### [facility] CLIA [id number] [address] [place] [address] [place] MCHC (RBC) [Mass/Vol] 33.5 g/dL Normal 30.5-36.0 [facility] Comment on above: Order Comment: Speci men Type: BLOOD SPECIMEN Ordering Facility: [facility] Address: [address] [place] [address] Performed By: #### 3 1201-7, 5195-3, 60098-8, SYPH #### [facility] CLIA [id number] [address] [place] [address] [place] MCV (RBC) [Entitic vol] 87.7 fL Normal 80.0-100.0 [facility] Comment on above: Order Comment: Speci men Type: BLOOD SPECIMEN Ordering Facility: [facility] Address: [address] [place] [address] Performed By: #### 3 1201-7, 5195-3, 91125-2, SYPH #### [facility] CLIA [id number] [address] [place] [address] [place] Nucleated RBC (Bld) [#/Vol] 10*3/uL Normal <0.01 [facility] Comment on above: Order Comment: Speci men Type: BLOOD SPECIMEN Ordering Facility: [facility] Address: [address] Performed By: #### 3 1201-7, 5195-3, 56254-5, SYPH #### [facility] CLIA [id number] [address] [place], [place] [id number] [place] Platelet mean volume (Bld) [Entitic vol] 13.3 fL High 9.0-12.7 [facility] Comment on above: Order Comment: Speci men Type: BLOOD SPECIMEN Ordering Facility: [facility] Address: [address] [address] Performed By: #### 3 1201-7, 5195-3, 41917-4, SYPH #### [facility] CLIA [id number] [address] [place] [address] [place] Platelets (Bld) [#/Vol] 111 10*3/uL Low 150-400 [facility] Comment on above: Order Comment: Speci men Type: BLOOD SPECIMEN Ordering Facility: [facility] Address: [address] [place] [address] Result Comment: No c lot detected. Performed By: #### 3 1201-7, 5195-3, 74209-4, SYPH #### [facility] CLIA [id number] [address] [place] [address] [place] RBC (Bld) [#/Vol] 5.04 10*6/uL Normal 3.90-5.20 [facility] Comment on above: Order Comment: Speci men Type: BLOOD SPECIMEN Ordering Facility: [facility] Address: [address] [address] Performed By: #### 3 1201-7, 5195-3, 23208-4, SYPH #### [facility] CLIA [id number] [address] [place] [address] [place] WBC (Bld) [#/Vol] 11.34 10*3/uL High 3.70-11.00 [facility] Comment on above: Order Comment: Speci men Type: BLOOD SPECIMEN Ordering Facility: [facility] Address: [address] [place] [address] [place] [address] Performed By: #### 3 1201-7, 5195-3, 15947-9, [facility] #### [facility] CLIA [id number] [facility] [place] [id number] [place] CTA ABD/PEL W IVCONon 2022 CTA ABD/PEL W IVCON * * *Final Report* * * DATE OF EXAM: Jul 12 2023 10:08AM [facility] 0311 - CTA ABD/PEL W IVCON / [...] aorta without acute aortic pathology. Dictated by Bookbinder Chief: Dutch Aguilar DO I, Valdo Islas MD, have supervised the procedure and/or image review, and agree with the above interpretation and report. Giver: CONCHITA Transcribe Date/Time: Jul 12 2023 10:10A Dictated by : DUTCH AGUILAR DO This examination was interpreted and the report reviewed and electronically signed by: VALDO ISLAS MD on Jul 12 2023 2:59PM EST [id number] Normal [facility] CTA CHEST (GATED) WO/W IVCON on 07-12-2023 CTA CHEST (GATED) WO/W IVCON * * *Final Report* * * DATE OF EXAM: Jul 12 2023 10:08AM [facility] 0126 - CTA CHEST (GATED) WO/W IVCON [...] aorta without acute aortic pathology. Dictated by Bookbinder Chief: Dutch Aguilar DO I, Valdo Islas MD, have supervised the procedure and/or image review, and agree with the above interpretation and report. Giver: CONCHITA Transcribe Date/Time: Jul 12 2023 10:10A Dictated by : DUTCH AGUILAR, This examination was interpreted and the report reviewed and electronically signed by: VALDO ISLAS MD on Jul 12 2023 2:59PM EST [id number] Normal [facility] Comprehensive metabolic 2000 panelon 07-12-2023 Albumin [Mass/Vol] 3.6 g/dL Normal 3.2-5.0 [facility] Comment on above: Order Comment: Speci men Type: BLOOD SPECIMENOrdering Facility: [facility] Address: [address] [place] [address] Performed By: #### 2 4323-8, ####[facility] [id number] [place] [id number] [place] ALP [Catalytic activity/Vol] 80 U/L Normal 45-117 [facility] Comment on above: Order Comment: Speci men Type: BLOOD SPECIMENOrdering Facility: [facility] Address: [address] [place] [address] Performed By: #### 2 4323-8, ####[facility] [id number] [place] [id number] [place] ALT [Catalytic activity/Vol] 74 U/L High 13-61 [facility] Comment on above: Order Comment: Speci men Type: BLOOD SPECIMENOrdering Facility: [facility] Address: [address] [place] [address] Result Comment: Resu lts may be falsely depressed after the administration of Sulfasalazine and/or Sulfapyridine. Performed By: #### 2 4323-8, 59337-1 ####[facility] [id number] [place] [id number] [place] Anion gap [Moles/Vol] 9 mmol/L Normal 5-16 [facility] Comment on above: Order Comment: Speci men Type: BLOOD SPECIMENOrdering Facility: [facility] Address: [address] [place] [address] Performed By: #### 2 4328, ####[facility] [id number] [place] [id number] [place] AST [Catalytic activity/Vol] 44 U/L High 8-34 [facility] Comment on above: Order Comment: Speci men Type: BLOOD SPECIMENOrdering Facility: [facility] Address: [address] [place] [address] Result Comment: Resu lts may be falsely depressed after the administration of Sulfasalazine and/or Sulfapyridine. Performed By: #### 2 4328, ####[facility] [id number] [place] [id number] [place] Bilirubin [Mass/Vol] 0.4 mg/dL Normal 0.2-1.0 [facility] Comment on above: Order Comment: Speci men Type: BLOOD SPECIMENOrdering Facility: [facility] Address: [address] [place] [address] Performed By: #### 2 4323-03, ####[facility] [id number] [place] [id number] [place] Calcium [Mass/Vol] 9.2 mg/dL Normal 8.5-10.5 [facility] Comment on above: Order Comment: Speci men Type: BLOOD SPECIMENOrdering Facility: [facility] Address: [address] [place] [address] Performed By: #### 2 4328, ####[facility] [id number] [place] [id number] [place] Chloride [Moles/Vol] 104 mmol/L Normal 98-107 [facility] Comment on above: Order Comment: Speci men Type: BLOOD SPECIMENOrdering Facility: [facility] Address: [address] [place] [address] Performed By: #### 2 4328, ####[facility] [id number] [place] [id number] [place] CO2 [Moles/Vol] 26 mmol/L Normal 21-32 [facility] Comment on above: Order Comment: Belindai jeb Type: BLOOD SPECIMENOrdering Facility: [facility] Address: [address] [place] [address] Performed By: #### 2 4323-8, ####[facility] [id number] [place] [id number] [place] Creatinine [Mass/Vol] 0.63 mg/dL Normal 0.51-0.95 [facility] Comment on above: Order Comment: Speci men Type: BLOOD SPECIMENOrdering Facility: [facility] Address: [address] [place] [address] Result Comment: Cleopatra ents receiving either N-Acetylcysteine (NAC) or Metamizole prior to venipuncture, may have falsely depressed results. Performed By: #### 2 4323-8, ####[facility]ORY[facility]IA [id number] [address] Creatinine and Glomerular filtration rate.predicted panel (S/P/Bld) 124 mL/min/1.73m??? Normal >=60 [facility] Comment on above: Order Comment: Jon russ Type: BLOOD SPECIMENOrdering Facility: [facility] Address: [address] [place] [address] Result Comment: Janett mated Glomerular Filtration Rate [...] actual GFR. Performed By: #### 2 4323-8, ####[facility]ORY[facility]IA [id number] [place] [id number] [place] Glucose [Mass/Vol] 313 mg/dL High 70-100 [facility] Comment on above: Order Comment: Belindai jeb Type: BLOOD SPECIMENOrdering Facility: [facility] Address: [address] [place] [address] Result Comment: The [place] [employer] (ADA) provides guidance for cutoff [...] Standards of Medical Care in Diabetes 2016, [place] [employer]. Diabetes Care. 2016.39(Suppl 1). Results may be falsely elevated after the administration of Sulfapyridine. Results may be falsely depressed after the administration of Sulfasalazine. Performed By: #### 2 4323-8, ####[facility]ORY[facility]IA [id number] [place] [address] [place] Potassium [Moles/Vol] 4.0 mmol/L Normal 3.5-5.1 [facility] Comment on above: Order Comment: Speci men Type: BLOOD SPECIMENOrdering Facility: [facility] Address: [address] [place] [address] Performed By: #### 2 4323-8, ####[facility]ORY[facility]IA [id number] [place] [address] [place] Protein [Mass/Vol] 6.3 g/dL Normal 6.0-8.5 [facility] Comment on above: Order Comment: Speci men Type: BLOOD SPECIMENOrdering Facility: [facility] Address: [address] [place] [address] Performed By: #### 2 4323, ####[facility]ORY[facility] [id number] [place] [id number] [place] Sodium [Moles/Vol] 139 mmol/L Normal 136-145 [facility] Comment on above: Order Comment: Speci men Type: BLOOD SPECIMENOrdering Facility: [facility] Address: [address] [place] [address] Performed By: #### 2 4323-8, ####[facility]ORY[facility] [id number] [place] [id number] [facility] Urea nitrogen [Mass/Vol] 16 mg/dL Normal 03-22 [facility] Comment on above: Order Comment: Speci men Type: BLOOD SPECIMENOrdering Facility: [facility] Address: [place] [address] Performed By: #### 2 4323-8, ####[facility]ORY[facility] [id number] [place] [id number] [facility] ECG COMPLETEon 07-12-2023 ECG COMPLETE Ventricular Rate : 9 6 BPM Atrial Rate : 96 BPM P-R Interval : 132 ms QRS Duration : 78 ms Q-T Interval : 370 ms QTC Calculation(Bazett) : 468 ms Calculated P Weston : 49 degrees Calculated R Weston : 95 degrees Calculated T Weston : 68 degrees Normal sinus rhythm with sinus arrhythmia Normal ECG When compared with ECG of 31-JAN-2023 19:42, Nonspecific T wave abnormality no longer evident in Inferior leads Nonspecific T wave abnormality, improved in Anterolateral leads Confirmed by ANASTASIA CHENG MD ([id number]) on 07/13/2023 7:59:29 PM NAME : KATHLEEN VILLA PID : [id number] : 1995 Gender : Female Race : ORD : [id number] Procedure Date : Jul 12 2023 03:45:28 Edit Date : Jul 13 2023 19:59:34 Diagnosis: Normal sinus rhythm with sinus arrhythmia Normal ECG When compared with ECG of 31-JAN-2023 19:42, Nonspecific T wave abnormality no longer evident in Inferior leads Nonspecific T wave abnormality, improved in Anterolateral leads Confirmed by ANASTASIA CHENG MD ([id number]) on 07/13/2023 7:59:29 PM Test Reason : STAT Location : 0 : ED A Overread By : ANASTASIA CHENG MD Edited By : ANASTASIA CHENG MD Referred By : , Acquired by : BRANDYN, Saad [facility] ED NOTEon 07-12-2023 ED NOTE HNO ID: [id number] Author: Vinayak Arevalo STIVEN Service: ? Author Type: Registered Nurse Type: ED Notes Filed: 07/12/2023 10:15 AM Note Text: Pt c/o CP after CT. Dr Cortes notified [facility] ED NOTE HNO ID: [id number] Author: Jhoana Hope, STIVEN Service: ? Author Type: Registered Nurse Type: ED Notes Filed: 07/12/2023 6:05 AM Note Text: Failed IV/ Blood draw attempts x 2 by multiple staff members. Pt states she has a port and would like it accessed. [facility] ED PROV NOTEon 07-12-2023 ED PROV NOTE HNO ID: [id number] Author: Zohreh Cortes MD Service: ? Author [...] and time. (more content not included)... Normal [facility] HIGH SENSITIVITY TROPONIN Io n 07-12-2023 Tropinin I.cardiac panel High sensitivity method <2.5 Normal 0.0-34.0 [facility] Comment on above: Order Comment: Jon russ Type: BLOOD SPECIMEN Ordering Facility: [facility] Address: [address] [place] [address] Result Comment: This assay uses different antibodies than our current assay, and assays, even by the same manager organizational may recognize different regions of the antibody and cannot be used interchangeably. Expect results of this assay to run higher than the previous assay. Performed By: #### 3 1201-7, 5195-3, 61413-8, SYPH #### [facility] CLIA [id number] [facility] [place] [address] [place] Tropinin I.cardiac panel High sensitivity method 3.3 pg/mL Normal 0.0-34.0 [facility] Comment on above: Order Comment: Jon russ Type: BLOOD SPECIMEN Ordering Facility: [facility] Address: [address] [place], [place] [id number] Result Comment: This assay uses different antibodies than our current assay, and assays, even by the same manager organizational may recognize different regions of the antibody and cannot be used interchangeably. Expect results of this assay to run higher than the previous assay. Performed By: #### 3 1201-7, 5195-3, 34471-8, SYPH #### [facility] CLIA [id number] [address] [place] [address] [place] Lipase SerPl-cCncon 07-12-20 23 Lipase [Catalytic activity/Vol] 23 U/L Normal 12-60 [facility] Comment on above: Order Comment: Speci men Type: BLOOD SPECIMENOrdering Facility: [facility] Address: [address] [place] [address] Performed By: #### 3 040-3 ####[facility] [id number] [place] [address] [place] MORPH WAM REFLEXon Platelets Estimate (Bld) [#/Vol] Decreased Normal [facility] Comment on above: Order Comment: Speci men Type: BLOOD SPECIMEN Ordering Facility: [facility] Address: [address] [place] [address] Performed By: #### 3 1201-7, 5195-3, 29853-6, SYPH #### [facility] CLIA [id number] [address] [place] [address] [place] RED CELL MORPH Reviewed: unremarkable Normal [facility] Comment on above: Order Comment: Speci men Type: BLOOD SPECIMEN Ordering Facility: [facility] Address: [address] [place] [address] Performed By: #### 3 1201-7, 5195-3, 84722-3, SYPH #### [facility] CLIA [id number] [address] [place] [address] [place] Magnesium SerPl-mCncon 07-12 Magnesium [Mass/Vol] 1.8 mg/dL Normal 1.6-2.6 [facility] Comment on above: Order Comment: Speci men Type: BLOOD SPECIMEN Ordering Facility: [facility] Address: [address] [place] [address] Performed By: #### 3 1201-7, 5195-3, 78216-6, SYPH #### [facility] CLIA [id number] [address] [place] [address] [place] XR CHEST 2V FRONTAL/LATon XR CHEST 2V [...] significant acute radiographic abnormality of the chest. Giver: PSCB Transcribe Date/Time: Jul 12 2023 4:44A Dictated by : LETICIA HUTCHINS MD This examination was interpreted and the report reviewed and electronically signed by: LETICIA HUTCHINS MD on Jul 12 2023 4:45AM EST [id number] Normal [facility] Absolute lymphocyte countOrd ered By: Siddharth Herrera on 06-26-2023 Lymphocytes Auto (Unsp spec) [#/Vol] 0.96 10*3/uL 0.83-4.51 [facility] Basophil percentageOrdered B y: Siddharth Herrera on 06-26-2023 Basophils/100 WBC (Bld) 0.1 % 0-1 [facility] Bilirubin [Mass/Vol] 0.90 mg/dL 0.20-1.00 [facility] Comment on above: For patients on eltr ombopag therapy, use of Dimension [place] TBIL is not recommended. Chloride [Moles/Vol] 104 mmol/L 98-107 [facility] Eosinophils/100 WBC (Bld) 0.0 % 0-5 [facility] Glucose [Mass/Vol] 254 mg/dL 74-106 [facility] Comment on above: Glucose result great er than or equal to 200 mg/dLsuggests DIABETES MELLITUS per A.D.A. criteria. Neutrophils (Bld) [#/Vol] 12.6 10*3/uL 2.0-7.7 [facility] Neutrophils/100 WBC (Bld) 88.9 % 47-70 [facility] Potassium [Moles/Vol] 3.5 mmol/L 3.5-5.1 [facility] Protein [Mass/Vol] 6.8 g/dL 6.4-8.2 [facility] Sodium [Moles/Vol] 137 mmol/L 136-145 [facility] WBC (Bld) [#/Vol] 14.2 10*3/uL 4.4-11.0 [facility] Blood erythrocytes count (nu mber/volume)Ordered By: Siddharth Herrera on 06-26-2023 RBC (Bld) [#/Vol] 4.21 10*6/uL 4.2-5.4 [facility] Blood hemoglobin measurement (mass/volume)Ordered By: Siddharth Herrera on 06-26-2023 Hemoglobin (Bld) [Mass/Vol] 12.3 g/dL 12.0-15.0 [facility] Blood lymphocytes/100 leukoc ytesOrdered By: Siddharth Herrera on 06-26-2023 Lymphocytes/100 WBC (Bld) 6.8 % 19-41 [facility] Blood monocytes/100 leukocyt esOrdered By: Siddharth Herrera on 06-26-2023 Monocytes/100 WBC (Bld) 3.4 % 0-10 [facility] Blood platelet mean volumeOr dered By: Siddharth Herrera on 06-26-2023 Platelet mean volume (Bld) [Entitic vol] 12.7 fL 6.2-12.0 [facility] Determination of erythrocyte mean corpuscular volume (MCV)Ordered By: Siddharth Herrera on 06-26-2023 MCV (RBC) [Entitic vol] 90.5 fL 81-99 [facility] Hematocrit Auto (Bld) [Volum e fraction]Ordered By: Siddharth Herrera on 06-26-2023 Hematocrit (Bld) [Volume fraction] 38.1 % 37-47 [facility] - Chemistry and C hemistry - challengeOrdered By: Siddharth Herrera on 06-26-2023 ALP [Catalytic activity/Vol] 86 U/L 45-117 [facility] ALT [Catalytic activity/Vol] 69 U/L 13-56 [facility] CO2 [Moles/Vol] 21.0 mmol/L 21.0-32.0 [facility] Globulin (S) [Mass/Vol] 3.2 g/dL 2.2-4.2 [facility] Lipase [Catalytic activity/Vol] U/L 13-75 [facility] Comment on above: Please note:LIPASE r evised reference range effective 22. New Lipase methodology. Expected to produce lower values than the previous assay method. NEW Reference Range: 13 - 75 U/L Urea nitrogen/Creatinine [Mass ratio] 18.9 mg/mg 10-20 [facility] - Hematology and Cell countsOrdered By: Siddharth Herrera on 06-26-2023 Erythrocyte distribution width (RBC) [Entitic vol] 42.9 fL 35.1-43.9 [facility] Erythrocyte distribution width (RBC) [Ratio] 13.0 % 11.6-14.6 [facility] Immature granulocytes/100 WBC (Bld) 0.800 % 0.0-0.9 [facility] Comment on above: IG% - Immature Granu locytes (promyelocytes, myelocytes and metamyelocytes) > 1% indicates that a LEFT SHIFT is Present. MCH (RBC) [Entitic mass] 29.2 pg 27.0-32.0 [facility] Nucleated RBC/100 WBC (Bld) [Ratio] 0 % 0-5 [facility] MCHC Auto (RBC) [Mass/Vol]Or dered By: Siddharth Herrera on 06-26-2023 MCHC (RBC) [Mass/Vol] 32.3 g/dL 32-36 [facility] No Panel InformationOrdered By: Siddharth Herrera on 06-26-2023 Estimated Creatinine Clearance Calc 102.98 ml/min [facility] Estimated GFR (MDRD) Amer 102 mL/min >60 [facility] Comment on above: GFR Calc Estimated GFR (MDRD) Non-Af Amer 84 mL/min >60 [facility] Comment on above: Non- GFR Calc Platelets bldOrdered By: Margarita Herrera on 06-26-2023 Platelets (Bld) [#/Vol] 160 10*3/uL 150-450 [facility] Serum or plasma albumin milli urement (mass/volume)Ordered By: Siddharth Herrera on 06-26-2023 Albumin [Mass/Vol] 3.6 g/dL 3.2-5.0 [facility] Serum or plasma albumin/glob ulin mass ratioOrdered By: Siddharth Herrera on 06-26-2023 Albumin/Globulin [Mass ratio] 1.1 {ratio} 0.9-2.4 [facility] Serum or plasma calcium milli urement (mass/volume)Ordered By: Siddharth Herrera on 06-26-2023 Calcium [Mass/Vol] 8.8 mg/dL 8.5-10.1 [facility] Serum or plasma creatinine m easurement (mass/volume)Ordered By: Siddharth Herrera on 06-26-2023 Creatinine [Mass/Vol] 0.85 mg/dL 0.55-1.02 [facility] Comment on above: The validity of the calculated GFR & GFRAA in patients over 70 years has not been determined. Clinical correlation is essential. Serum or plasma urea nitroge n measurement (mass/volume)Ordered By: Siddharth Herrera on 06-26-2023 Urea nitrogen [Mass/Vol] 16 mg/dL 7-18 [facility] Thin prep Papanicolaou smear with manual screeningOrdered By: Siddharth Herrera on 06-26-2023 Thin prep Papanicolaou smear with manual screening 35 U/L 15-37 [facility] Thin prep Papanicolaou smear with manual screening 12 5-15 [facility] Absolute lymphocyte countOrd ered By: Greg Philip on 06-25-2023 Lymphocytes Auto (Unsp spec) [#/Vol] 2.12 10*3/uL 0.83-4.51 [facility] Basophil percentageOrdered B y: Greg Philip on 06-25-2023 Basophils/100 WBC (Bld) 0.4 % 0-1 [facility] Bilirubin [Mass/Vol] 0.60 mg/dL 0.20-1.[address] [facility] Comment on above: For patients on eltr ombopag therapy, use of Dimension [place] TBIL is not recommended. Chloride [Moles/Vol] 109 mmol/L 98-107 [facility] Eosinophils/100 WBC (Bld) 0.4 % 0-5 [facility] Glucose [Mass/Vol] 283 mg/dL 74-106 [facility] Comment on above: Glucose result great er than or equal to 200 mg/dLsuggests DIABETES MELLITUS per A.D.A. criteria. Neutrophils (Bld) [#/Vol] 9.2 10*3/uL 2.0-7.7 [facility] Neutrophils/100 WBC (Bld) 75.9 % 47-70 [facility] Potassium [Moles/Vol] 3.8 mmol/L 3.5-5.1 [facility] Protein [Mass/Vol] 6.9 g/dL 6.4-8.2 [facility] Sodium [Moles/Vol] 140 mmol/L 136-145 [facility] WBC (Bld) [#/Vol] 12.1 10*3/uL 4.4-11.0 [facility] Beta hCG serum qualOrdered B y: Greg Philip on 06-25-2023 Beta HCG ( test) Ql Negative [facility] Blood erythrocytes count (nu mber/volume)Ordered By: Greg Philpi on 06-25-2023 RBC (Bld) [#/Vol] 4.56 10*6/uL 4.2-5.4 [facility] Blood hemoglobin measurement (mass/volume)Ordered By: Greg Philip on 06-25-2023 Hemoglobin (Bld) [Mass/Vol] 13.5 g/dL 12.0-15.0 [facility] Blood lymphocytes/100 leukoc ytesOrdered By: Greg Philip on 06-25-2023 Lymphocytes/100 WBC (Bld) 17.5 % 19-41 [facility] Blood monocytes/100 leukocyt esOrdered By: Greg Philip on 06-25-2023 Monocytes/100 WBC (Bld) 5.0 % 0-10 [facility] Blood platelet mean volumeOr dered By: Greg Philip on 06-25-2023 Platelet mean volume (Bld) [Entitic vol] 12.9 fL 6.2-12.0 [facility] Determination of erythrocyte mean corpuscular volume (MCV)Ordered By: Greg Philip on 06-25-2023 MCV (RBC) [Entitic vol] 89.5 fL 81-99 [facility] Hematocrit Auto (Bld) [Volum e fraction]Ordered By: Greg Philip on 06-25-2023 Hematocrit (Bld) [Volume fraction] 40.8 % 37-47 [facility] - Chemistry and C hemistry - challengeOrdered By: Gregrigoberto Philip on 06-25-2023 ALP [Catalytic activity/Vol] 85 U/L 45-117 [facility] ALT [Catalytic activity/Vol] 70 U/L 13-56 [facility] CO2 [Moles/Vol] 22.0 mmol/L 21.0-32.0 [facility] Globulin (S) [Mass/Vol] 3.2 g/dL 2.2-4.2 [facility] Lipase [Catalytic activity/Vol] 16 U/L -75 [facility] Comment on above: Please note:LIPASE r evised reference range effective 22. New Lipase methodology. Expected to produce lower values than the previous assay method. NEW Reference Range: 13 - 75 U/L Urea nitrogen/Creatinine [Mass ratio] 17.3 mg/mg 10-20 [facility] - Hematology and Cell countsOrdered By: Greg Philip on 06-25-2023 Erythrocyte distribution width (RBC) [Entitic vol] 42.5 fL 35.1-43.9 [facility] Erythrocyte distribution width (RBC) [Ratio] 13.1 % 11.6-14.6 [facility] Immature granulocytes/100 WBC (Bld) 0.800 % 0.0-0.9 [facility] Comment on above: IG% - Immature Granu locytes (promyelocytes, myelocytes and metamyelocytes) > 1% indicates that a LEFT SHIFT is Present. MCH (RBC) [Entitic mass] 29.6 pg 27.0-32.0 [facility] Nucleated RBC/100 WBC (Bld) [Ratio] 0 % 0-5 [facility] MCHC Auto (RBC) [Mass/Vol]Or dered By: Greg Philip on 06-25-2023 MCHC (RBC) [Mass/Vol] 33.1 g/dL 32-36 [facility] No Panel InformationOrdered By: Greg Philip on 06-25-2023 Estimated Creatinine Clearance Calc 104.31 ml/min [facility] Estimated GFR (MDRD) Amer 108 mL/min >60 [facility] Comment on above: GFR Calc Estimated GFR (MDRD) Non-Af Amer 89 mL/min >60 [facility] Comment on above: Non- GFR Calc Platelets bldOrdered By: Allyn Philip on 06-25-2023 Platelets (Bld) [#/Vol] 180 10*3/uL 150-450 [facility] Serum or plasma albumin milli urement (mass/volume)Ordered By: Greg Philip on 06-25-2023 Albumin [Mass/Vol] 3.7 g/dL 3.2-5.0 [facility] Serum or plasma albumin/glob ulin mass ratioOrdered By: Greg Philip on 06-25-2023 Albumin/Globulin [Mass ratio] 1.2 {ratio} 0.9-2.4 [facility] Serum or plasma calcium milli urement (mass/volume)Ordered By: Greg Philip on 06-25-2023 Calcium [Mass/Vol] 9.1 mg/dL 8.5-10.1 [facility] Serum or plasma creatinine m easurement (mass/volume)Ordered By: Greg Philip on 06-25-2023 Creatinine [Mass/Vol] 0.81 mg/dL 0.55-1.02 [facility] Comment on above: The validity of the calculated GFR & GFRAA in patients over 70 years has not been determined. Clinical correlation is essential. Serum or plasma urea nitroge n measurement (mass/volume)Ordered By: Greg Philip on 06-25-2023 Urea nitrogen [Mass/Vol] 14 mg/dL 7-18 [facility] Thin prep Papanicolaou smear with manual screeningOrdered By: Greg Philip on 06-25-2023 Thin prep Papanicolaou smear with manual screening 39 U/L 15-37 [facility] Thin prep Papanicolaou smear with manual screening 9 5-15 [facility] HEMOGLOBIN A1C (POC)on 05-31 HbA1c (Bld) [Mass fraction] 7.2 % Abnormal 4.2 - 5.6 % [facility] Dipak 05-23-2023 CNPN Telephone (FAMPOR) KATHLEEN VILLA ([id number]) 1995 F T Date Time Provider Department [...] Rash Date Reviewed: 04/05/2023 Reviewed by: Ten Mao, RN - Fully Assessed Reason for Visit: [...] Status:Closed by EUNICE MCDONALD on 05/23/23 [facility] Basophil percentageOrdered B y: Lin Johansen on 05-03-2023 Chloride [Moles/Vol] 111 mmol/L 98-107 [facility] Glucose [Mass/Vol] 230 mg/dL 74-106 [facility] Comment on above: Glucose result great er than or equal to 200 mg/dLsuggests DIABETES MELLITUS per A.D.A. criteria. Potassium [Moles/Vol] 3.7 mmol/L 3.5-5.1 [facility] Sodium [Moles/Vol] 142 mmol/L 136-145 [facility] Beta hCG serum qualOrdered B y: Marc Carl on 05-03-2023 Beta HCG ( test) Ql Negative [facility] - Chemistry and C hemistry - challengeOrdered By: Lin Johansen on 05-03-2023 CO2 [Moles/Vol] 22.0 mmol/L 21.0-32.0 [facility] Urea nitrogen/Creatinine [Mass ratio] 12.8 mg/mg 10- [facility] No Panel InformationOrdered By: Lin Johansen on 05-03-2023 Estimated Creatinine Clearance Calc 141.18 ml/min [facility] Estimated GFR (MDRD) Amer 145 mL/min >60 [facility] Comment on above: GFR Calc Estimated GFR (MDRD) Non-Af Amer 120 mL/min >60 [facility] Comment on above: Non- GFR Calc Serum or plasma acetone milli urement (mass/volume)Ordered By: Marc Carl on 05-03-2023 Acetone [Mass/Vol] MODERATE NEG [facility] Serum or plasma calcium milli urement (mass/volume)Ordered By: Lin Johansen on 05-03-2023 Calcium [Mass/Vol] 7.7 mg/dL 8.5-10.1 [facility] Serum or plasma creatinine m easurement (mass/volume)Ordered By: Lin Johansen on 05-03-2023 Creatinine [Mass/Vol] 0.62 mg/dL 0.55-1.02 [facility] Comment on above: The validity of the calculated GFR & GFRAA in patients over 70 years has not been determined. Clinical correlation is essential. Serum or plasma urea nitroge n measurement (mass/volume)Ordered By: Lin Johansen on 05-03-2023 Urea nitrogen [Mass/Vol] 8 mg/dL - [facility] Thin prep Papanicolaou smear with manual screeningOrdered By: Lin Joahnsen on 05-03-2023 Thin prep Papanicolaou smear with manual screening 9 5-15 [facility] Absolute lymphocyte countOrd ered By: Ileana Lobo on 04-29-2023 Lymphocytes Auto (Unsp spec) [#/Vol] 2.07 10*3/uL 0.83-4.51 [facility] Basophil percentageOrdered B y: Ileana Lobo on 04-29-2023 Basophils/100 WBC (Bld) 0.3 % 0-1 [facility] Chloride [Moles/Vol] 108 mmol/L 98-107 [facility] Eosinophils/100 WBC (Bld) 0.0 % 0-5 [facility] Glucose [Mass/Vol] 258 mg/dL 74-106 [facility] Comment on above: Glucose result great er than or equal to 200 mg/dLsuggests DIABETES MELLITUS per A.D.A. criteria. Neutrophils (Bld) [#/Vol] 11.5 10*3/uL 2.0-7.7 [facility] Neutrophils/100 WBC (Bld) 79.4 % 47-70 [facility] Potassium [Moles/Vol] 4.5 mmol/L 3.5-5.1 [facility] Sodium [Moles/Vol] 136 mmol/L 136-145 [facility] WBC (Bld) [#/Vol] 14.4 10*3/uL 4.4-11.0 [facility] Blood erythrocytes count (nu mber/volume)Ordered By: Ileana Lobo on 04-29-2023 RBC (Bld) [#/Vol] 3.86 10*6/uL 4.2-5.4 [facility] Blood hemoglobin measurement (mass/volume)Ordered By: Ileana Lobo on 04-29-2023 Hemoglobin (Bld) [Mass/Vol] 11.5 g/dL 12.0-15.0 [facility] Blood lymphocytes/100 leukoc ytesOrdered By: Ileana Lobo on 04-29-2023 Lymphocytes/100 WBC (Bld) 14.3 % 19-41 [facility] Blood monocytes/100 leukocyt esOrdered By: Ileana Lobo on 04-29-2023 Monocytes/100 WBC (Bld) 4.9 % 0-10 [facility] Blood platelet mean volumeOr dered By: Ileana Lobo on 04-29-2023 Platelet mean volume (Bld) [Entitic vol] 11.6 fL 6.2-12.0 [facility] Determination of erythrocyte mean corpuscular volume (MCV)Ordered By: Ileana Lobo on 04-29-2023 MCV (RBC) [Entitic vol] 91.2 fL 81-99 [facility] Glucose Glucometer (BldC) [M ass/Vol]Ordered By: Ileana Lobo on 04-29-2023 Glucose [Mass/Vol] 210 mg/dL 74-106 [facility] Comment on above: MANAGEMENT OF PATIEN T CARE PER NURSING PROTOCOL Hematocrit Auto (Bld) [Volum e fraction]Ordered By: Ileana Lobo on 04-29-2023 Hematocrit (Bld) [Volume fraction] 35.2 % 37-47 [facility] - Chemistry and C hemistry - challengeOrdered By: Ileana Lobo on 04-29-2023 CO2 [Moles/Vol] 19.0 mmol/L 21.0-32.0 [facility] Urea nitrogen/Creatinine [Mass ratio] 11.6 mg/mg 10-20 [facility] - Hematology and Cell countsOrdered By: Ileana Lobo on 04-29-2023 Erythrocyte distribution width (RBC) [Entitic vol] 47.9 fL 35.1-43.9 [facility] Erythrocyte distribution width (RBC) [Ratio] 14.3 % 11.6-14.6 [facility] Immature granulocytes/100 WBC (Bld) 1.100 % 0.0-0.9 [facility] Comment on above: IG% - Immature Granu locytes (promyelocytes, myelocytes and metamyelocytes) > 1% indicates that a LEFT SHIFT is Present. MCH (RBC) [Entitic mass] 29.8 pg 27.0-32.0 [facility] Nucleated RBC/100 WBC (Bld) [Ratio] 0 % 0-5 [facility] MCHC Auto (RBC) [Mass/Vol]Or dered By: Ileana Lobo on 04-29-2023 MCHC (RBC) [Mass/Vol] 32.7 g/dL 32-36 [facility] No Panel InformationOrdered By: Ileana Lobo on 04-29-2023 Estimated Creatinine Clearance Calc 112.22 ml/min [facility] Estimated GFR (MDRD) Amer 113 mL/min >60 [facility] Comment on above: GFR Calc Estimated GFR (MDRD) Non-Af Amer 93 mL/min >60 [facility] Comment on above: Non- GFR Calc Platelets bldOrdered By: Jes Lobo on 04-29-2023 Platelets (Bld) [#/Vol] 143 10*3/uL 150-450 [facility] Serum or plasma calcium milli urement (mass/volume)Ordered By: Ileana Lobo on 04-29-2023 Calcium [Mass/Vol] 8.0 mg/dL 8.5-10.1 [facility] Serum or plasma creatinine m easurement (mass/volume)Ordered By: Ileana Lobo on 04-29-2023 Creatinine [Mass/Vol] 0.78 mg/dL 0.55-1.02 [facility] Comment on above: The validity of the calculated GFR & GFRAA in patients over 70 years has not been determined. Clinical correlation is essential. Serum or plasma urea nitroge n measurement (mass/volume)Ordered By: Ileana Lobo on 04-29-2023 Urea nitrogen [Mass/Vol] 9 mg/dL 7-18 [facility] Thin prep Papanicolaou smear with manual screeningOrdered By: Ileana Lobo on 04-29-2023 Thin prep Papanicolaou smear with manual screening 9 5-15 [facility] Assessment of wrist artery p atency prior to arterial punctureOrdered By: David Smith on 04-28-2023 Arterial patency Wrist artery --pre arterial puncture Positive [facility] Base excessOrdered By: Demond Smith on 04-28-2023 Base excess Calc (BldV) [Moles/Vol] -6 mmol/L -2-2 [facility] Basophil percentageOrdered B y: Ileana Lobo on 04-28-2023 Basophil percentage 0-5 SEEN /hpf 0-5 [facility] Basophil percentageOrdered B y: David Smith on 04-28-2023 Basophil percentage 18.2 mmol/L 22-26 [facility] Basophils/100 WBC (Bld) 99 % 95-99 [facility] Bilirubin Test strip Ql (U)O rdered By: Ileana Lobo on 04-28-2023 Bilirubin Ql (U) Negative Negative [facility] CO2 (BldA) [Partial pressure ]Ordered By: David Smith on 04-28-2023 CO2 (Bld) [Partial pressure] 26.7 mm[Hg] 35-45 [facility] Culture, urineOrdered By: Jocelyne Lobo on 04-28-2023 Bacteria identified Cx Nom (U) Positive [facility] Bacteria identified Cx Nom (U) Positive [facility] Ketones Test strip Ql (U)Ord ered By: Ileana Lobo on 04-28-2023 Ketones Ql (U) 150 mg/dl Negative [facility] Comment on above: CRITICAL VALUE *HCRI TICAL VALUE VERIFIED. CALLED TO [id number] Emily Felix.RESULTS READ BACK BY SAME . Laboratory - Chemistry and C hemistry - challengeOrdered By: Ileana Lobo on 04-28-2023 Magnesium [Mass/Vol] 2.1 mg/dL 1.6-2.6 [facility] Laboratory - Drug toxicology Ordered By: Ileana Lobo on 04-28-2023 Amphetamines Ql (U) Negative <1000 ng/mL [facility] Benzodiazepines Ql (U) Negative < 200 ng/mL [facility] Cannabinoids Screen Ql (U) Positive < 50 ng/mL [facility] Cocaine Ql (U) Negative < 300 ng/mL [facility] Opiates Ql (U) Negative < 300 ng/mL [facility] Mucus LM Ql (Urine sed)Order ed By: Ileana Lobo on 04-28-2023 Mucus Ql (Urine sed) 0 SEEN /hpf [facility] Nitrite Test strip Ql (U)Ord ered By: Ileana Lobo on 04-28-2023 Nitrite Ql (U) Negative Negative [facility] No Panel InformationOrdered By: Ileana Lobo on 04-28-2023 MDMA (Ecstasy) Screen Negative < 500 ng/mL [facility] Urine Barbiturates Screen Negative < 200 ng/mL [facility] Urine Drug Screen Comment [facility] Comment on above: CONFIRMATORY TESTING FOR [...] Screen Negative < 300 ng/mL [facility] No Panel InformationOrdered By: David Smith on 04-28-2023 Blood Gas Sample Site R Radial [facility] Blood Gas Specimen Type ART [facility] Blood Gas Total CO2 19 mmol/L [facility] Oxygen (BldA) [Partial press ure]Ordered By: David Smith on 04-28-2023 Oxygen (Bld) [Partial pressure] 107 mmHG 75-100 [facility] Protein Test strip Ql (U)Ord ered By: Ileana Lobo on 04-28-2023 Protein Ql (U) Negative Negative [facility] Serum or plasma acetone milli urement (mass/volume)Ordered By: Vincenzo Castaeñda on 04-28-2023 Acetone [Mass/Vol] SMALL NEG [facility] Serum procalcitonin measurem entOrdered By: Ileana Lobo on 04-28-2023 Procalcitonin [Mass/Vol] 0.08 ng/mL 0.00-0.09 [facility] Comment on above: A procalcitonin (PCT [...] Ql (Urine sed) 0 SEEN /hpf 5-10 [facility] Urine blood detectionOrdered By: Ileana Lobo on 04-28-2023 RBC Ql (U) Negative Negative [facility] RBC Ql (U) 0 SEEN /hpf 0-5 [facility] Urine clarityOrdered By: Jes Lobo on 04-28-2023 Clarity (U) Clear Clear [facility] Urine color determinationOrd ered By: Ileana Lobo on 04-28-2023 Color (U) Straw Yellow [facility] Urine glucose detectionOrder ed By: Ileana Lobo on 04-28-2023 Glucose Ql (U) 100 mg/dl Normal [facility] Urine leukocyte esterase det ection by dipstickOrdered By: Ileana Lobo on 04-28-2023 Leukocyte esterase Test strip Ql (U) 25 /ul Negative [facility] Urine pHOrdered By: Ileana mayorga on 04-28-2023 pH (U) 5.0 [pH] 5.0 - 8.0 [facility] Urine phencyclidine (PCP) de tectionOrdered By: Ileana Lobo on 04-28-2023 Phencyclidine Ql (U) Negative < 25 ng/mL [facility] Urine sediment bacteria coun t by microscopy (number/high power field)Ordered By: Ileana Lobo on 04-28-2023 Bacteria LM.HPF (Urine sed) [#/Area] 0 /[HPF] None Seen [facility] Urine specific gravity measu rementOrdered By: Ileana Lobo on 04-28-2023 Specific gravity (U) [Rel density] 1.010 1.002-1.030 [facility] Urobilinogen Auto test strip Ql (U)Ordered By: Ileana Lobo on 04-28-2023 Urobilinogen Ql (U) Normal mg/dl Normal [facility] pH measurementOrdered By: Gloria Smith on 04-28-2023 pH (Unsp spec) 7.44 [pH] 7.35-7.45 [facility] Absolute lymphocyte countOrd ered By: Lin Johansen on 04-27-2023 Lymphocytes Auto (Unsp spec) [#/Vol] 0.67 10*3/uL 0.83-4.51 [facility] Basophil percentageOrdered B y: Lin Johansen on 04-27-2023 Basophils/100 WBC (Bld) 0.2 % 0-1 [facility] Bilirubin [Mass/Vol] 1.00 mg/dL 0.20-1.00 [facility] Comment on above: For patients on eltr ombopag therapy, use of Dimension [place] TBIL is not recommended. Chloride [Moles/Vol] 102 mmol/L 98-107 [facility] Eosinophils/100 WBC (Bld) 0.0 % 0-5 [facility] Glucose [Mass/Vol] 313 mg/dL 74-106 [facility] Comment on above: Glucose result great er than or equal to 200 mg/dLsuggests DIABETES MELLITUS per A.D.A. criteria. Neutrophils (Bld) [#/Vol] 19.6 10*3/uL 2.0-7.7 [facility] Neutrophils/100 WBC (Bld) 93.9 % 47-70 [facility] Potassium [Moles/Vol] 5.1 mmol/L 3.5-5.1 [facility] Protein [Mass/Vol] 7.5 g/dL 6.4-8.2 [facility] Sodium [Moles/Vol] 130 mmol/L 136-145 [facility] WBC (Bld) [#/Vol] 20.9 10*3/uL 4.4-11.0 [facility] Blood erythrocytes count (nu mber/volume)Ordered By: Lin Johansen on 04-27-2023 RBC (Bld) [#/Vol] 4.65 10*6/uL 4.2-5.4 [facility] Blood hemoglobin measurement (mass/volume)Ordered By: Lin Johansen on 04-27-2023 Hemoglobin (Bld) [Mass/Vol] 13.5 g/dL 12.0-15.0 [facility] Blood lymphocytes/100 leukoc ytesOrdered By: Lin Johansen on 04-27-2023 Lymphocytes/100 WBC (Bld) 3.2 % 19-41 [facility] Blood monocytes/100 leukocyt esOrdered By: Lin Johansen on 04-27-2023 Monocytes/100 WBC (Bld) 0.9 % 0-10 [facility] Blood platelet mean volumeOr dered By: Lin Johansen on 04-27-2023 Platelet mean volume (Bld) [Entitic vol] 12.5 fL 6.2-12.0 [facility] Determination of erythrocyte mean corpuscular volume (MCV)Ordered By: Lin Johansen on 04-27-2023 MCV (RBC) [Entitic vol] 90.3 fL 81-99 [facility] Direct bilirubinOrdered By: Lin Johansen on 04-27-2023 Bilirubin.direct [Mass/Vol] 0.30 mg/dL 0.00-0.30 [facility] Glucose Glucometer (dC) [M ass/Vol]Ordered By: Lin Johansen on 04-27-2023 Glucose [Mass/Vol] 206 mg/dL 74-106 [facility] Comment on above: MANAGEMENT OF PATIEN T CARE PER NURSING PROTOCOL Hematocrit Auto (Bld) [Volum e fraction]Ordered By: Lin Johansen on 04-27-2023 Hematocrit (Bld) [Volume fraction] 42.0 % 37-47 [facility] Laboratory - Chemistry and C hemistry - challengeOrdered By: Lin Johansen on 04-27-2023 ALP [Catalytic activity/Vol] 85 U/L 45-117 [facility] ALT [Catalytic activity/Vol] 22 U/L 13-56 [facility] CO2 [Moles/Vol] 13.0 mmol/L 21.0-32.0 [facility] Globulin (S) [Mass/Vol] 3.5 g/dL 2.2-4.2 [facility] Lipase [Catalytic activity/Vol] 10 U/L 13-75 [facility] Comment on above: Please note:LIPASE r evised reference range effective 22. New Lipase methodology. Expected to produce lower values than the previous assay method. NEW Reference Range: 13 - 75 U/L Urea nitrogen/Creatinine [Mass ratio] 13.9 mg/mg 10-20 [facility] Laboratory - Hematology and Cell countsOrdered By: Lin Johansen on 04-27-2023 Erythrocyte distribution width (RBC) [Entitic vol] 46.5 fL 35.1-43.9 [facility] Erythrocyte distribution width (RBC) [Ratio] 14.2 % 11.6-14.6 [facility] Immature granulocytes/100 WBC (Bld) 1.800 % 0.0-0.9 [facility] Comment on above: IG% - Immature Granu locytes (promyelocytes, myelocytes and metamyelocytes) > 1% indicates that a LEFT SHIFT is Present. MCH (RBC) [Entitic mass] 29.0 pg 27.0-32.0 [facility] Nucleated RBC/100 WBC (Bld) [Ratio] 0 % 0-5 [facility] MCHC Auto (RBC) [Mass/Vol]Or dered By: Lin Johansen on 04-27-2023 MCHC (RBC) [Mass/Vol] 32.1 g/dL 32-36 [facility] No Panel InformationOrdered By: Lin Johansen on 04-27-2023 Estimated Creatinine Clearance Calc 78.23 ml/min [facility] Estimated GFR (MDRD) Amer 77 mL/min >60 [facility] Comment on above: GFR Calc Estimated GFR (MDRD) Non-Af Amer 64 mL/min >60 [facility] Comment on above: Non- GFR Calc Platelets bldOrdered By: Vicenta Johansen on 04-27-2023 Platelets (Bld) [#/Vol] 158 10*3/uL 150-450 [facility] Serum or plasma albumin milli urement (mass/volume)Ordered By: Lin Johansen on 04-27-2023 Albumin [Mass/Vol] 4.0 g/dL 3.2-5.0 [facility] Serum or plasma calcium milli urement (mass/volume)Ordered By: Lin Johansen on 04-27-2023 Calcium [Mass/Vol] 9.4 mg/dL 8.5-10.1 [facility] Serum or plasma creatinine m easurement (mass/volume)Ordered By: Lin Johansen on 04-27-2023 Creatinine [Mass/Vol] 1.08 mg/dL 0.55-1.02 [facility] Comment on above: The validity of the calculated GFR & GFRAA in patients over 70 years has not been determined. Clinical correlation is essential. Serum or plasma urea nitroge n measurement (mass/volume)Ordered By: Lin Johansen on 04-27-2023 Urea nitrogen [Mass/Vol] 15 mg/dL 7-18 [facility] Thin prep Papanicolaou smear with manual screeningOrdered By: Lin Johansen on 04-27-2023 Thin prep Papanicolaou smear with manual screening 10 U/L 15-37 [facility] Thin prep Papanicolaou smear with manual screening 15 5-15 [facility] Absolute lymphocyte countOrd ered By: Loki Soria on 04-26-2023 Lymphocytes Auto (Unsp spec) [#/Vol] 1.87 10*3/uL 0.83-4.51 [facility] Basophil percentageOrdered B y: Loki Soria on 04-26-2023 Basophils/100 WBC (Bld) 0.3 % 0-1 [facility] Chloride [Moles/Vol] 106 mmol/L 98-107 [facility] Eosinophils/100 WBC (Bld) 0.4 % 0-5 [facility] Glucose [Mass/Vol] 108 mg/dL 74-106 [facility] Comment on above: Fasting Glucose resu lt from 100 to 125 mg/dL suggests IMPAIRED HOMEOSTASIS per A.D.A. criteria. Neutrophils (Bld) [#/Vol] 10.8 10*3/uL 2.0-7.7 [facility] Neutrophils/100 WBC (Bld) 78.6 % 47-70 [facility] Potassium [Moles/Vol] 3.9 mmol/L 3.5-5.1 [facility] Sodium [Moles/Vol] 135 mmol/L 136-145 [facility] WBC (Bld) [#/Vol] 13.8 10*3/uL 4.4-11.0 [facility] Blood erythrocytes count (nu mber/volume)Ordered By: Loki Soria on 04-26-2023 RBC (Bld) [#/Vol] 4.80 10*6/uL 4.2-5.4 [facility] Blood hemoglobin measurement (mass/volume)Ordered By: Foreman Yang on 04-26-2023 Hemoglobin (Bld) [Mass/Vol] 14.1 g/dL 12.0-15.0 [facility] Blood lymphocytes/100 leukoc ytesOrdered By: [facility] S[facility] on 04-26-2023 Lymphocytes/100 WBC (Bld) 13.6 % 19-41 [facility] Blood monocytes/100 leukocyt esOrdered By: Foreman Yang on 04-26-2023 Monocytes/100 WBC (Bld) 6.2 % 0-10 [facility] Blood platelet mean volumeOr dered By: [facility] on 04-26-2023 Platelet mean volume (Bld) [Entitic vol] 11.5 fL 6.2-12.0 [facility] Determination of erythrocyte mean corpuscular volume (MCV)Ordered By: Foreman Yang on 04-26-2023 MCV (RBC) [Entitic vol] 88.8 fL 81-99 [facility] Hematocrit Auto (Bld) [Volum e fraction]Ordered By: [facility] on 04-26-2023 Hematocrit (Bld) [Volume fraction] 42.6 % 37-47 [facility] Laboratory - Chemistry and C hemistry - challengeOrdered By: [facility] on 04-26-2023 CO2 [Moles/Vol] 20.0 mmol/L 21.0-32.0 [facility] Urea nitrogen/Creatinine [Mass ratio] 10.5 mg/mg 10-20 [facility] Laboratory - Hematology and Cell countsOrdered By: [facility] on 04-26-2023 Erythrocyte distribution width (RBC) [Entitic vol] 45.3 fL 35.1-43.9 [facility] Erythrocyte distribution width (RBC) [Ratio] 13.9 % 11.6-14.6 [facility] Immature granulocytes/100 WBC (Bld) 0.900 % 0.0-0.9 [facility] Comment on above: IG% - Immature Granu locytes (promyelocytes, myelocytes and metamyelocytes) > 1% indicates that a LEFT SHIFT is Present. MCH (RBC) [Entitic mass] 29.4 pg 27.0-32.0 [facility] Nucleated RBC/100 WBC (Bld) [Ratio] 0 % 0-5 [facility] MCHC Auto (RBC) [Mass/Vol]Or dered By: Loki Soria on 04-26-2023 MCHC (RBC) [Mass/Vol] 33.1 g/dL 32-36 [facility] No Panel InformationOrdered By: Loki Soria on 04-26-2023 Estimated Creatinine Clearance Calc 91.18 ml/min [facility] Estimated GFR (MDRD) Amer 89 mL/min >60 [facility] Comment on above: GFR Calc Estimated GFR (MDRD) Non-Af Amer 74 mL/min >60 [facility] Comment on above: Non- GFR Calc Thyroid Stimulating Hormone (TSH) 3.85 uIU/mL 0.358-3.74 [facility] Troponin I High Sensitivity 4 pg/mL 3.0-54.0 [facility] Comment on above: Please Note: New Ivone t Units and Gender Specific Reference Ranges. For more information see Policy Stat Procedure [place] High Sensitivity Troponin (TNIH) and attachments. Platelets bldOrdered By: Ashley Yang on 04-26-2023 Platelets (Bld) [#/Vol] 158 10*3/uL 150-450 [facility] Serum or plasma calcium milli urement (mass/volume)Ordered By: Loki Soria on 04-26-2023 Calcium [Mass/Vol] 9.2 mg/dL 8.5-10.1 [facility] Serum or plasma creatinine m easurement (mass/volume)Ordered By: Loki Soria on 04-26-2023 Creatinine [Mass/Vol] 0.96 mg/dL 0.55-1.02 [facility] Comment on above: The validity of the calculated GFR & GFRAA in patients over 70 years has not been determined. Clinical correlation is essential. Serum or plasma urea nitroge n measurement (mass/volume)Ordered By: Loki Soria on 04-26-2023 Urea nitrogen [Mass/Vol] 10 mg/dL 7-18 [facility] Thin prep Papanicolaou smear with manual screeningOrdered By: Loki Soria on 04-26-2023 Thin prep Papanicolaou smear with manual screening 9 5-15 [facility] Absolute lymphocyte countOrd ered By: Greg Philip on 04-23-2023 Lymphocytes Auto (Unsp spec) [#/Vol] 1.93 10*3/uL 0.83-4.51 [facility] Basophil percentageOrdered B y: Greg Philip on 04-23-2023 Basophil percentage 5-10 SEEN /hpf 0-5 [facility] Basophils/100 WBC (Bld) 0.3 % 0-1 [facility] Bilirubin [Mass/Vol] 0.30 mg/dL 0.20-1.00 [facility] Comment on above: For patients on eltr ombopag therapy, use of Dimension [place] TBIL is not recommended. Chloride [Moles/Vol] 114 mmol/L 98-107 [facility] Eosinophils/100 WBC (Bld) 0.6 % 0-5 [facility] Glucose [Mass/Vol] 60 mg/dL 74-106 [facility] Neutrophils (Bld) [#/Vol] 10.3 10*3/uL 2.0-7.7 [facility] Neutrophils/100 WBC (Bld) 77.2 % 47-70 [facility] Potassium [Moles/Vol] 3.3 mmol/L 3.5-5.1 [facility] Protein [Mass/Vol] 6.3 g/dL 6.4-8.2 [facility] Sodium [Moles/Vol] 143 mmol/L 136-145 [facility] WBC (Bld) [#/Vol] 13.4 10*3/uL 4.4-11.0 [facility] Beta hCG serum qualOrdered B y: Greg Philip on 04-23-2023 Beta HCG ( test) Ql Negative [facility] Bilirubin Test strip Ql (U)O rdered By: Greg Philip on 04-23-2023 Bilirubin Ql (U) Negative Negative [facility] Blood erythrocytes count (nu mber/volume)Ordered By: Greg Philip on 04-23-2023 RBC (Bld) [#/Vol] 4.34 10*6/uL 4.2-5.4 [facility] Blood hemoglobin measurement (mass/volume)Ordered By: Greg Philip on 04-23-2023 Hemoglobin (Bld) [Mass/Vol] 13.0 g/dL 12.0-15.0 [facility] Blood lymphocytes/100 leukoc ytesOrdered By: Greg Philip on 04-23-2023 Lymphocytes/100 WBC (Bld) 14.5 % 19-41 [facility] Blood monocytes/100 leukocyt esOrdered By: Greg Philip on 04-23-2023 Monocytes/100 WBC (Bld) 6.7 % 0-10 [facility] Blood platelet mean volumeOr dered By: Greg Philip on 04-23-2023 Platelet mean volume (Bld) [Entitic vol] 12.7 fL 6.2-12.0 [facility] Determination of erythrocyte mean corpuscular volume (MCV)Ordered By: Greg Philip on 04-23-2023 MCV (RBC) [Entitic vol] 91.7 fL 81-99 [facility] Glucose Glucometer (BldC) [M ass/Vol]Ordered By: Greg Philip on 04-23-2023 Glucose [Mass/Vol] 108 mg/dL 74-106 [facility] Comment on above: MANAGEMENT OF PATIEN T CARE PER NURSING PROTOCOL Hematocrit Auto (Bld) [Volum e fraction]Ordered By: Greg Philip on 04-23-2023 Hematocrit (Bld) [Volume fraction] 39.8 % 37-47 [facility] INR in Blood by Coagulation assayOrdered By: Greg Philip on 04-23-2023 INR Coag (Bld) [Relative time] 1.1 {INR} [facility] Ketones Test strip Ql (U)Ord ered By: Greg Philip on 04-23-2023 Ketones Ql (U) Negative Negative [facility] Laboratory - Chemistry and C hemistry - challengeOrdered By: Greg Philip on 04-23-2023 ALP [Catalytic activity/Vol] 66 U/L 45-117 [facility] ALT [Catalytic activity/Vol] 31 U/L 13-56 [facility] CO2 [Moles/Vol] 25.0 mmol/L 21.0-32.0 [facility] Globulin (S) [Mass/Vol] 2.9 g/dL 2.2-4.2 [facility] Lipase [Catalytic activity/Vol] 19 U/L 13-75 [facility] Comment on above: Please note:LIPASE r evised reference range effective 22. New Lipase methodology. Expected to produce lower values than the previous assay method. NEW Reference Range: 13 - 75 U/L Urea nitrogen/Creatinine [Mass ratio] 23.1 mg/mg 10-20 [facility] Laboratory - CoagulationOrde red By: Greg Philip on 04-23-2023 aPTT Coag (Bld) [Time] 34.5 s 24.1-36.2 [facility] PT Coag (PPP) [Time] 14.4 s 11.7-14.9 [facility] Laboratory - Hematology and Cell countsOrdered By: Greg Philip on 04-23-2023 Erythrocyte distribution width (RBC) [Entitic vol] 47.8 fL 35.1-43.9 [facility] Erythrocyte distribution width (RBC) [Ratio] 14.1 % 11.6-14.6 [facility] Immature granulocytes/100 WBC (Bld) 0.700 % 0.0-0.9 [facility] Comment on above: IG% - Immature Granu locytes (promyelocytes, myelocytes and metamyelocytes) > 1% indicates that a LEFT SHIFT is Present. MCH (RBC) [Entitic mass] 30.0 pg 27.0-32.0 [facility] Nucleated RBC/100 WBC (Bld) [Ratio] 0 % 0-5 [facility] MCHC Auto (RBC) [Mass/Vol]Or dered By: Greg Philip on 04-23-2023 MCHC (RBC) [Mass/Vol] 32.7 g/dL 32-36 [facility] Mucus LM Ql (Urine sed)Order ed By: Greg Philip on 04-23-2023 Mucus Ql (Urine sed) 0 SEEN /hpf [facility] Nitrite Test strip Ql (U)Ord ered By: Greg Philip on 04-23-2023 Nitrite Ql (U) Negative Negative [facility] No Panel InformationOrdered By: Greg Philip on 04-23-2023 Estimated Creatinine Clearance Calc 156.31 ml/min [facility] Estimated GFR (MDRD) Amer 164 mL/min >60 [facility] Comment on above: GFR Calc Estimated GFR (MDRD) Non-Af Amer 135 mL/min >60 [facility] Comment on above: Non- GFR Calc Troponin I High Sensitivity 6 pg/mL 3.0-54.0 [facility] Comment on above: Please Note: New Ivone t Units and Gender Specific Reference Ranges. For more information see Policy Stat Procedure [place] High Sensitivity Troponin (TNIH) and attachments. Platelets bldOrdered By: Allyn Philip on 04-23-2023 Platelets (Bld) [#/Vol] 149 10*3/uL 150-450 [facility] Protein Test strip Ql (U)Ord ered By: Greg Philip on 04-23-2023 Protein Ql (U) Negative Negative [facility] Serum or plasma acetone milli urement (mass/volume)Ordered By: Greg Philip on 04-23-2023 Acetone [Mass/Vol] Negative NEG [facility] Serum or plasma albumin milli urement (mass/volume)Ordered By: Greg Philip on 04-23-2023 Albumin [Mass/Vol] 3.4 g/dL 3.2-5.0 [facility] Serum or plasma albumin/glob ulin mass ratioOrdered By: Greg Philip on 04-23-2023 Albumin/Globulin [Mass ratio] 1.2 {ratio} 0.9-2.4 [facility] Serum or plasma calcium milli urement (mass/volume)Ordered By: Greg Philip on 04-23-2023 Calcium [Mass/Vol] 8.6 mg/dL 8.5-10.1 [facility] Serum or plasma creatinine m easurement (mass/volume)Ordered By: Greg Philip on 04-23-2023 Creatinine [Mass/Vol] 0.56 mg/dL 0.55-1.02 [facility] Comment on above: The validity of the calculated GFR & GFRAA in patients over 70 years has not been determined. Clinical correlation is essential. Serum or plasma urea nitroge n measurement (mass/volume)Ordered By: Greg Philip on 04-23-2023 Urea nitrogen [Mass/Vol] 13 mg/dL 7-18 [facility] Squamous epithelial cells de tection in urine sediment by light microscopyOrdered By: Greg Philip on 08-27-2023 Epithelial cells.squamous LM Ql (Urine sed) 0 SEEN /hpf 5-10 [facility] Thin prep Papanicolaou smear with manual screeningOrdered By: Greg Philip on 04-23-2023 Thin prep Papanicolaou smear with manual screening 13 U/L 15-37 [facility] Thin prep Papanicolaou smear with manual screening 4 5-15 [facility] Urine blood detectionOrdered By: Greg Philip on 04-23-2023 RBC Ql (U) Negative Negative [facility] RBC Ql (U) 0 SEEN /hpf 0-5 [facility] Urine clarityOrdered By: Allyn Philip on 04-23-2023 Clarity (U) Clear Clear [facility] Urine color determinationOrd ered By: Greg Philip on 04-23-2023 Color (U) Yellow Yellow [facility] Urine glucose detectionOrder ed By: Greg Philip on 04-23-2023 Glucose Ql (U) 50 mg/dl Normal [facility] Urine leukocyte esterase det ection by dipstickOrdered By: Greg Philip on 04-23-2023 Leukocyte esterase Test strip Ql (U) 500 /ul Negative [facility] Urine pHOrdered By: Greg sun on 04-23-2023 pH (U) 8.0 [pH] 5.0 - 8.0 [facility] Urine sediment bacteria coun t by microscopy (number/high power field)Ordered By: Greg Philip on 04-23-2023 Bacteria LM.HPF (Urine sed) [#/Area] 1 /[HPF] None Seen [facility] Urine specific gravity measu rementOrdered By: Greg Philip on 04-23-2023 Specific gravity (U) [Rel density] 1.015 1.002-1.030 [facility] Urobilinogen Auto test strip Ql (U)Ordered By: Greg Philip on 04-23-2023 Urobilinogen Ql (U) Normal mg/dl Normal [facility] CBC W Auto Differential pane l (Bld)on 04-06-2023 Basophils (Bld) [#/Vol] 0.05 10*3/uL Normal <0.11 [facility] Comment on above: Order Comment: Speci men Type: BLOOD SPECIMEN Ordering Facility: [facility] Address: [address] [address] Performed By: #### 3 1201-7, 5195-3, 12297-8, SYPH #### [facility] CLIA [id number] [address] [place] [address] [place] Basophils/100 WBC (Bld) 0.4 % Normal [facility] Comment on above: Order Comment: Speci men Type: BLOOD SPECIMEN Ordering Facility: [facility] Address: [address] [address] Performed By: #### 3 1201-7, 5-3, 83705-3, SYPH #### [facility] CLIA [id number] [address] [place] [address] [place] Differential cell count method Nom (Bld) Auto Normal [facility] Comment on above: Order Comment: Speci men Type: BLOOD SPECIMEN Ordering Facility: [facility] Address: [address] [address] Performed By: #### 3 1201-7, 5194-3, 83032-3, SYPH #### [facility] CLIA [id number] [address] [place] [address] [place] Eosinophils (Bld) [#/Vol] 0.03 10*3/uL Normal <0.46 [facility] Comment on above: Order Comment: Speci men Type: BLOOD SPECIMEN Ordering Facility: [facility] Address: [address] [address] Performed By: #### 3 1201-7, 5-3, 98048-0, SYPH #### [facility] CLIA [id number] [address] [place] [address] [place] Eosinophils/100 WBC (Bld) 0.2 % Normal [facility] Comment on above: Order Comment: Speci men Type: BLOOD SPECIMEN Ordering Facility: [facility] Address: [address] [address] Performed By: #### 3 1201-7, 5-3, 79126-7, SYPH #### [facility] CLIA [id number] [address] [place] [address] [place] Erythrocyte distribution width (RBC) [Ratio] 13.9 % Normal 11.5-15.0 [facility] Comment on above: Order Comment: Speci men Type: BLOOD SPECIMEN Ordering Facility: [facility] Address: [address] [place] [address] Performed By: #### 3 1201-7, 5195-3, 05350-8, SYPH #### [facility] CLIA [id number] [address] [place] [address] [place] Hematocrit (Bld) [Volume fraction] 43.8 % Normal 36.0-46.0 [facility] Comment on above: Order Comment: Speci men Type: BLOOD SPECIMEN Ordering Facility: [facility] Address: [address] [place] [address] Performed By: #### 3 1201-7, 5195-3, 97078-6, SYPH #### [facility] CLIA [id number] [address] [place] [address] [place] Hemoglobin (Bld) [Mass/Vol] 14.4 g/dL Normal 11.5-15.5 [facility] Comment on above: Order Comment: Speci men Type: BLOOD SPECIMEN Ordering Facility: [facility] Address: [address] [place] [address] Performed By: #### 3 1201-7, 5194-3, 22014-6, SYPH #### [facility] CLIA [id number] [address] [place] [address] [place] Immature granulocytes (Bld) [#/Vol] 0.11 10*3/uL High <0.10 [facility] Comment on above: Order Comment: Speci men Type: BLOOD SPECIMEN Ordering Facility: [facility] Address: [address] [place] [address] Performed By: #### 3 1201-7, 5195-3, 81570-0, SYPH #### [facility] CLIA [id number] [address] [place] [address] [place] Immature granulocytes/100 WBC (Bld) 0.8 % Normal [facility] Comment on above: Order Comment: Speci men Type: BLOOD SPECIMEN Ordering Facility: [facility] Address: [address] [place] [address] Performed By: #### 3 1201-7, 5195-3, 90174-6, SYPH #### [facility] CLIA [id number] [address] [place] [address] [place] Lymphocytes (Bld) [#/Vol] 2.59 10*3/uL Normal 1.00-4.00 [facility] Comment on above: Order Comment: Speci men Type: BLOOD SPECIMEN Ordering Facility: [facility] Address: [address] [place] [address] Performed By: #### 3 1201-7, 5195-3, 12404-4, SYPH #### [facility] CLIA [id number] [address] [place] [address] [place] Lymphocytes/100 WBC (Bld) 19.8 % Normal [facility] Comment on above: Order Comment: Speci men Type: BLOOD SPECIMEN Ordering Facility: [facility] Address: [address] [place] [address] Performed By: #### 3 1201-7, 5195-3, 27661-6, SYPH #### [facility] CLIA [id number] [address] [place] [address] [place] MCH (RBC) [Entitic mass] 29.1 pg Normal 26.0-34.0 [facility] Comment on above: Order Comment: Speci men Type: BLOOD SPECIMEN Ordering Facility: [facility] Address: [address] [place] [address] Performed By: #### 3 1201-7, 5195-3, 72180-4, SYPH #### [facility] CLIA [id number] [address] [place] [address] [place] MCHC (RBC) [Mass/Vol] 32.9 g/dL Normal 30.5-36.0 [facility] Comment on above: Order Comment: Speci men Type: BLOOD SPECIMEN Ordering Facility: [facility] Address: [address] [address] Performed By: #### 3 1201-7, 5195-3, 02330-3, SYPH #### [facility] CLIA [id number] [address] [place] [address] [place] MCV (RBC) [Entitic vol] 88.5 fL Normal 80.0-100.0 [facility] Comment on above: Order Comment: Speci men Type: BLOOD SPECIMEN Ordering Facility: [facility] Address: [address] [place] [address] Performed By: #### 3 1201-7, 5195-3, 39933-3, SYPH #### [facility] CLIA [id number] [address] [place] [address] [place] Monocytes (Bld) [#/Vol] 0.76 10*3/uL Normal <0.87 [facility] Comment on above: Order Comment: Speci men Type: BLOOD SPECIMEN Ordering Facility: [facility] Address: [address] [address] Performed By: #### 3 1201-7, 5195-3, 48634-2, SYPH #### [facility] CLIA [id number] [address] [place] [address] [place] Monocytes/100 WBC (Bld) 5.8 % Normal [facility] Comment on above: Order Comment: Speci men Type: BLOOD SPECIMEN Ordering Facility: [facility] Address: [address] Performed By: #### 3 1201-7, 5195-3, 03959-4, SYPH #### [facility] CLIA [id number] [address] [place], [place] [address] [place] Neutrophils (Bld) [#/Vol] 9.56 10*3/uL High 1.45-7.50 [facility] Comment on above: Order Comment: Speci men Type: BLOOD SPECIMEN Ordering Facility: [facility] Address: [address] [address] Performed By: #### 3 1201-7, 5195-3, 73190-2, SYPH #### [facility] CLIA [id number] [address] [place] [address] [place] Neutrophils/100 WBC (Bld) 73.0 % Normal [facility] Comment on above: Order Comment: Speci men Type: BLOOD SPECIMEN Ordering Facility: [facility] Address: [address] [address] Performed By: #### 3 1201-7, 5195-3, 82392-0, SYPH #### [facility] CLIA [id number] [address] [place] [address] [place] Nucleated RBC (Bld) [#/Vol] 10*3/uL Normal <0.01 [facility] Comment on above: Order Comment: Speci men Type: BLOOD SPECIMEN Ordering Facility: [facility] Address: [address] [place] [address] Performed By: #### 3 1201-7, 5195-3, 68535-4, SYPH #### [facility] CLIA [id number] [address] [place] [address] [place] Nucleated RBC/100 WBC (Bld) [Ratio] 0.0 /100 WBC Normal [facility] Comment on above: Order Comment: Speci men Type: BLOOD SPECIMEN Ordering Facility: [facility] Address: [address] [address] Performed By: #### 3 1201-7, 5195-3, 31051-5, SYPH #### [facility] CLIA [id number] [address] [place] [address] [place] Platelet mean volume (Bld) [Entitic vol] 12.0 fL Normal 9.0-12.7 [facility] Comment on above: Order Comment: Speci men Type: BLOOD SPECIMEN Ordering Facility: [facility] Address: [address] [place] [address] Performed By: #### 3 1201-7, 5195-3, 61422-6, SYPH #### [facility] CLIA [id number] [address] [place], [place] [address] [place] Platelets (Bld) [#/Vol] 180 10*3/uL Normal 150-400 [facility] Comment on above: Order Comment: Speci men Type: BLOOD SPECIMEN Ordering Facility: [facility] Address: [address] Performed By: #### 3 1201-7, 5195-3, 61209-3, SYPH #### [facility] CLIA [id number] [address] [place] [address] [place] RBC (Bld) [#/Vol] 4.95 10*6/uL Normal 3.90-5.20 [facility] Comment on above: Order Comment: Speci men Type: BLOOD SPECIMEN Ordering Facility: [facility] Address: [address] [facility] Performed By: #### 3 1201-7, 5195-3, 34783-9, SYPH #### [facility] CLIA [id number] [address] [place] [address] [place] WBC (Bld) [#/Vol] 13.10 10*3/uL High 3.70-11.00 [facility] Comment on above: Order Comment: Speci men Type: BLOOD SPECIMEN Ordering Facility: [facility] Address: [address] [id number] Performed By: #### 3 1201-7, 5195-3, 83383-8, SYPH #### [facility] CLIA [id number] [address] [place], [place] [address] [facility] [place] CT ABD/PEL W IVCONon 023 CT ABD/PEL W IVCON * * *Final Report* * * DATE OF EXAM: Apr 06 2023 12:56AM [facility] 0530 - CT ABD/PEL W IVCON / [...] Likely right lower quadrant ventral injection sites/granuloma. Hair Preparer (topogram) images: No additional findings. IMPRESSION: 1. No acute abnormality. Giver: CONCHITA Transcribe Date/Time: Apr 06 2023 1:25A Dictated by : LIANG SLAUGHTER MD This examination was interpreted and the report reviewed and electronically signed by: LIANG SLAUGHTER MD on Apr 06 2023 1:30AM EST [id number] Normal [facility] Comprehensive metabolic 2000 panelon 04-06-2023 Albumin [Mass/Vol] 4.2 g/dL Normal 3.2-5.0 [facility] Comment on above: Order Comment: Speci men Type: BLOOD SPECIMEN Ordering Facility: [facility] Address: [place] [address] Performed By: #### 3 1201-7, 5195-3, 57186-6, SYPH #### [facility] CLIA [id number] [address] [place], [place] [address] OF [facility] ALP [Catalytic activity/Vol] 85 U/L Normal 45-117 [facility] Comment on above: Order Comment: Jon russ Type: BLOOD SPECIMEN Ordering Facility: [facility] Address: [address] [place] [address] Performed By: #### 3 1201-7, 5195-3, 82880-5, SYPH #### [facility] CLIA [id number] [address] [place] [address] OF [facility] ALT [Catalytic activity/Vol] 87 U/L High 13-61 [facility] Comment on above: Order Comment: Speci men Type: BLOOD SPECIMEN Ordering Facility: [facility] Address: [address] [place] [address] Result Comment: Resu lts may be falsely depressed after the administration of Sulfasalazine and/or Sulfapyridine. Performed By: #### 3 1201-7, 5195-3, 38147-2, SYPH #### [facility] CLIA [id number] [address] [place] [address] Anion gap [Moles/Vol] 8 mmol/L Normal 5-16 [facility] Comment on above: Order Comment: Jon russ Type: BLOOD SPECIMEN Ordering Facility: [facility] Address: [address] [place] [address] Performed By: #### 3 1201-7, 5195-3, 80624-5, SYPH #### [facility] CLIA [id number] [address] [place] [address] OF [facility] AST [Catalytic activity/Vol] 60 U/L High 8-34 [facility] Comment on above: Order Comment: Jon russ Type: BLOOD SPECIMEN Ordering Facility: [facility] Address: [address] [place] [address] Result Comment: Resu lts may be falsely depressed after the administration of Sulfasalazine and/or Sulfapyridine. Performed By: #### 3 1201-7, 5195-3, 94705-1, SYPH #### [facility] CLIA [id number] [address] [place] [address] [place] Bilirubin [Mass/Vol] 0.7 mg/dL Normal 0.2-1.0 [facility] Comment on above: Order Comment: Speci men Type: BLOOD SPECIMEN Ordering Facility: [facility] Address: [address] [place] [address] Performed By: #### 3 1201-7, 5195-3, 00944-8, SYPH #### [facility] CLIA [id number] [address] [place] [address] [place] Calcium [Mass/Vol] 9.6 mg/dL Normal 8.5-10.5 [facility] Comment on above: Order Comment: Speci men Type: BLOOD SPECIMEN Ordering Facility: [facility] Address: [address] [place] [address] Performed By: #### 3 1201-7, 5195-3, 83887-7, SYPH #### [facility] CLIA [id number] [address] [place] [address] [place] Chloride [Moles/Vol] 107 mmol/L Normal 98-107 [facility] Comment on above: Order Comment: Speci men Type: BLOOD SPECIMEN Ordering Facility: [facility] Address: [address] [place] [address] Performed By: #### 3 1201-7, 5195-3, 44827-5, SYPH #### [facility] CLIA [id number] [address] [place] [address] [place] CO2 [Moles/Vol] 26 mmol/L Normal 21-32 [facility] Comment on above: Order Comment: Speci men Type: BLOOD SPECIMEN Ordering Facility: [facility] Address: [address] [place] [address] Performed By: #### 3 1201-7, 5195-3, 66767-0, SYPH #### [facility] CLIA [id number] [address] [place] [address] [place] Creatinine [Mass/Vol] 0.69 mg/dL Normal 0.51-0.95 [facility] Comment on above: Order Comment: Jon russ Type: BLOOD SPECIMEN Ordering Facility: [facility] Address: [address] [id number] Result Comment: Cleopatra ents receiving either N-Acetylcysteine (NAC) or Metamizole prior to venipuncture, may have falsely depressed results. Performed By: #### 3 1201-7, 5195-3, 71390-3, SYPH #### [facility] CLIA [id number] [address] [place] [address] [place] ESTIMATED GLOMERULAR FILTRATION RATE 121 mL/min/1.73m??? Normal >=60 [facility] Comment on above: Order Comment: Jon russ Type: BLOOD SPECIMEN Ordering Facility: [facility] Address: [address] [place], [place] [address] Result Comment: Janett mated Glomerular Filtration Rate [...] GFR. Performed By: #### 3 1201-7, 5195-3, 43716-2, SYPH #### [facility] CLIA [id number] [address] [place] [address] [place] Glucose [Mass/Vol] 79 mg/dL Normal 70-100 [facility] Comment on above: Order Comment: Jon russ Type: BLOOD SPECIMEN Ordering Facility: [facility] Address: [address] [id number] Result Comment: The [place] [employer] (ADA) provides guidance for cutoff [...] Standards of Medical Care in Diabetes 2016, [place] [employer]. Diabetes Care. 2016.39(Suppl 1). Results may be falsely elevated after the administration of Sulfapyridine. Results may be falsely depressed after the administration of Sulfasalazine. Performed By: #### 3 1201-7, 5195-3, 35451-4, SYPH #### [facility] CLIA [id number] [address] [place] [address] [place] Potassium [Moles/Vol] 4.0 mmol/L Normal 3.5-5.1 [facility] Comment on above: Order Comment: Jon russ Type: BLOOD SPECIMEN Ordering Facility: [facility] Address: [address] [place] [address] Performed By: #### 3 1201-7, 5195-3, 63022-4, SYPH #### [facility] CLIA [id number] [address] [place] [address] [place] Protein [Mass/Vol] 7.2 g/dL Normal 6.0-8.5 [facility] Comment on above: Order Comment: Jon russ Type: BLOOD SPECIMEN Ordering Facility: [facility] Address: [address] [place] [address] Performed By: #### 3 1201-7, 5195-3, 28668-5, SYPH #### [facility] CLIA [id number] [address] [place] [address] [place] Sodium [Moles/Vol] 141 mmol/L Normal 136-145 [facility] Comment on above: Order Comment: Jon russ Type: BLOOD SPECIMEN Ordering Facility: [facility] Address: [address] [place] [address] Performed By: #### 3 1201-7, 5195-3, 24262-6, SYPH #### [facility] CLIA [id number] [address] [place], [place] [address] [place] Urea nitrogen [Mass/Vol] 15 mg/dL Normal 7-26 [facility] Comment on above: Order Comment: Speci men Type: BLOOD SPECIMEN Ordering Facility: [facility] Address: [place] [address] Performed By: #### 3 1201-7, 5195-3, 73036-6, SYPH #### [facility] CLIA [id number] [address] [place], [place] [address] [facility] ED PROV NOTEon 04-06-2023 ED PROV NOTE HNO ID: [id number] Author: Greg Zimmerman DO Service: Emergency Medicine [...] return precautions given. Clinical Impressions as of 04/06/23 0254 Pain of left hip Pelvic pain in female SIGNATURE: Greg Zimmerman DO PATIENT NAME: Kathleen Villa DATE: April 06, 2023 TIME: 2:25 AM PAGER/CONTACT #: GREG ZIMMERMAN 04/06/23 0236 GREG ZIMMERMAN 04/06/[address] [facility] ED PROV NOTE HNO ID: [id number] Author: Jorge Alberto Nj MD Service: ? [...] be ki (more content not included)... Normal [facility] ED Triage Noteon 04-06-2023 ED Triage Note HNO ID: [id number] Author: Merced Mora PA-C Service: ? Author Type: Physician Blacktop Paver Operator Type: ED Triage Notes Filed: 04/05/2023 10:31 PM Note Text: ED INTAKE NOTE Patient Name: Kathlene Villa Service Date: 04/05/23 BRIEF HPI: The [...] CMP Urinalysis SIGNATURE: Merced Mora PA-C Normal [facility] HCG QUAL BLDon 04-06-2023 HCG, QUALITATIVE Negative Normal Negative [facility] Comment on above: Order Comment: Speci men Type: BLOOD SPECIMEN Ordering Facility: [facility] Address: [address] [place], [place] [id number] Performed By: #### 3 1201-7, 5195-3, 78981-6, SYPH #### [facility] CLIA [id number] [address] [place] [address] [place] Urinalysis complete panel (U )on 04-06-2023 Bacteria LM.HPF (Urine sed) [#/Area] Rare Abnormal None Seen [facility] Comment on above: Order Comment: Speci men Type: BLOOD SPECIMEN Ordering Facility: [facility] Address: [address] [place] [address] Performed By: #### 3 1201-7, 5195-3, 04900-1, SYPH #### [facility] CLIA [id number] [address] [place] [address] [place] Bilirubin Ql (U) Negative Normal Negative [facility] Comment on above: Order Comment: Speci men Type: BLOOD SPECIMEN Ordering Facility: [facility] Address: [address] [place] [address] Performed By: #### 3 1201-7, 5194-3, 47997-0, SYPH #### [facility] CLIA [id number] [address] [place] [address] [place] Clarity (Unsp spec) Clear Normal Clear [facility] Comment on above: Order Comment: Speci men Type: BLOOD SPECIMEN Ordering Facility: [facility] Address: [address] [place] [address] Performed By: #### 3 1201-7, 3, , SYPH #### [facility] CLIA [id number] [address] [place] [address] [place] Color (U) Yellow Normal Yellow [facility] Comment on above: Order Comment: Speci men Type: BLOOD SPECIMEN Ordering Facility: [facility] Address: [address] [place] [address] Performed By: #### 3 1201-7, 3, , SYPH #### [facility] CLIA [id number] [address] [place] [address] [place] Epithelial cells LM.HPF (Urine sed) [#/Area] Many Normal [facility] Comment on above: Order Comment: Speci men Type: BLOOD SPECIMEN Ordering Facility: [facility] Address: [address] [place] [address] Performed By: #### 3 1201-7, 5194-3, , SYPH #### [facility] CLIA [id number] [address] [place] [address] [place] Glucose Test strip (U) [Mass/Vol] Negative Normal Negative [facility] Comment on above: Order Comment: Speci men Type: BLOOD SPECIMEN Ordering Facility: [facility] Address: [address] [place] [address] Performed By: #### 3 1201-7, 5195-3, 64456-6, SYPH #### [facility] CLIA [id number] [address] [place] [address] Hemoglobin Ql (U) Negative Normal Negative [facility] Comment on above: Order Comment: Speci men Type: BLOOD SPECIMEN Ordering Facility: [facility] Address: [address] [place] [address] Performed By: #### 3 1201-7, 5-3, 75176-5, SYPH #### [facility] CLIA [id number] [address] [place] [address] [place] Ketones Ql (U) Trace Abnormal Negative [facility] Comment on above: Order Comment: Speci men Type: BLOOD SPECIMEN Ordering Facility: [facility] Address: [address] [place] [address] Performed By: #### 3 1201-7, 5194-3, 55224-4, SYPH #### [facility] CLIA [id number] [address] [place] [address] [place] Leukocyte esterase Test strip Ql (U) 1+ Abnormal Negative [facility] Comment on above: Order Comment: Speci men Type: BLOOD SPECIMEN Ordering Facility: [facility] Address: [address] [place] [address] Performed By: #### 3 1201-7, 5-3, 70025-3, SYPH #### [facility] CLIA [id number] [address] [place] [address] [place] Nitrite Ql (U) Negative Normal Negative [facility] Comment on above: Order Comment: Speci men Type: BLOOD SPECIMEN Ordering Facility: [facility] Address: [address] [place] [address] Performed By: #### 3 1201-7, 5-3, 69767-8, SYPH #### [facility] CLIA [id number] [address] [place] [address] [place] pH (U) 5.0 [pH] Normal 5.0-8.0 [facility] Comment on above: Order Comment: Speci men Type: BLOOD SPECIMEN Ordering Facility: [facility] Address: [address] [place] [address] Performed By: #### 3 1201-7, 5195-3, 33962-7, SYPH #### [facility] CLIA [id number] [address] [place] [address] [place] Protein (U) [Mass/Vol] Negative Normal Negative [facility] Comment on above: Order Comment: Speci men Type: BLOOD SPECIMEN Ordering Facility: [facility] Address: [address] [place] [address] Performed By: #### 3 1201-7, 5195-3, 33108-9, SYPH #### [facility] CLIA [id number] [address] [place] [address] [place] RBC LM.HPF (Urine sed) [#/Area] 3-5 /HPF Abnormal 0-3 /HPF [facility] Comment on above: Order Comment: Speci men Type: BLOOD SPECIMEN Ordering Facility: [facility] Address: [address] [place] [address] Performed By: #### 3 1201-7, 5195-3, 44444-6, SYPH #### [facility] CLIA [id number] [address] [place] [address] [place] Specific gravity (U) [Rel density] >1.030 High 1.005-1.030 [facility] Comment on above: Order Comment: Speci men Type: BLOOD SPECIMEN Ordering Facility: [facility] Address: [address] [place] [address] Performed By: #### 3 1201-7, 5195-3, 49727-6, SYPH #### [facility] CLIA [id number] [address] [place] [address] [place] Urobilinogen Ql (U) Negative Normal Negative [facility] Comment on above: Order Comment: Speci men Type: BLOOD SPECIMEN Ordering Facility: [facility] Address: [place] [address] Performed By: #### 3 1201-7, 5195-3, 34188-2, SYPH #### [facility] CLIA [id number] [address] [place], [place] [id number] [facility] WBC LM.HPF (Urine sed) [#/Area] 6-10 /HPF Abnormal 0-5 /HPF [facility] Comment on above: Order Comment: Speci men Type: BLOOD SPECIMEN Ordering Facility: [facility] Address: [place] [address] Performed By: #### 3 1201-7, 5195-3, 47963-6, SYPH #### [facility] CLIA [id number] [address] [place], [place] [id number] [facility] ED NOTEon 04-05-2023 ED NOTE HNO ID: [id number] Author: Ten Mao, RN Service: Nursing Author Type: Registered Nurse Type: ED Notes Filed: 04/05/2023 9:44 PM Note Text: PT presents to ED with c/o left hip pain, back pain and pelvic pain. Reports hip pain started first this morning. Pain now radiating into back and pelvic area. Endorses nausea. Normal [facility] Basic metabolic 2000 panelon 03-22-2023 Anion gap [Moles/Vol] 7 mmol/L Low 10 - 20 mmol/L [facility] Calcium [Mass/Vol] 8.0 mg/dL Low 8.4 - 10. 2 mg/dL [facility] Chloride [Moles/Vol] 110 mmol/L High 98 - 10 8 mmol/L [facility] Creatinine [Mass/Vol] 0.81 mg/dL 0.40 - 1.10 mg/dL [facility] GFR/1.73 sq M.predicted CKD-EPI (S/P/Bld) [Vol rate/Area] 102 - PINF [facility] Comment on above: Estimated GFR was ca lculated using the 2020 CKD-EPI creatinine equation. Glucose [Mass/Vol] 251 mg/dL High 65 - 99 mg/dL [facility] HCO3 [Moles/Vol] 26 mmol/L 21 - 32 mmol/L [facility] Interpretation and review of laboratory results Abnormal [facility] Potassium [Moles/Vol] 3.2 mmol/L Low 3.5 - 5.1 mmol/L [facility] Sodium [Moles/Vol] 140 mmol/L 135 - 145 mmol/L [facility] Urea nitrogen [Mass/Vol] 8 mg/dL 8 - 25 mg/dL [facility] Urea nitrogen/Creatinine [Mass ratio] 9.9 mg/mg Low 10.0 - 20.0 [facility] has implemented the eGFR calculation approach that does not have a coefficient for race that conforms to the NKF-ASN Task Force Recommendations. [facility] CBC Auto Differentialon 02-26 Basophils (Bld) [#/Vol] 0.02 10*3/uL [facility] Basophils/100 WBC (Bld) 0.2 % [facility] Eosinophils (Bld) [#/Vol] 0.04 10*3/uL [facility] Eosinophils/100 WBC (Bld) 0.4 % [facility] Erythrocyte distribution width (RBC) [Entitic vol] 13.9 % 11.6 - 14.8 % [facility] Hematocrit (Bld) [Volume fraction] 37.4 % 36.0 - 46.0 % [facility] Hemoglobin (Bld) [Mass/Vol] 12.4 g/dL 12.0 - 16.0 g/dL [facility] Immature granulocytes (Bld) [#/Vol] 0.07 10*3/uL [facility] Immature granulocytes/100 WBC (Bld) 0.70 % [facility] Comment on above: The IG parameter is the percentage of metamyelocytes, myelocytes and promyelocytes. An immature granulocyte count (IG) of 1% or more suggests the possibility of infection, an IG count of 3% is very likely related to an infection. Lymphocytes (Bld) [#/Vol] 2.55 10*3/uL [facility] Lymphocytes/100 WBC (Bld) 27.1 % [facility] MCH (RBC) [Entitic mass] 29.1 pg 26.0 - 34.0 pg [facility] MCHC (RBC) [Mass/Vol] 33.2 g/dL 31.0 - 37.0 g/dL [facility] MCV (RBC) [Entitic vol] 87.8 fL 80.0 - 100.0 fL [facility] Monocytes (Bld) [#/Vol] 0.57 10*3/uL [facility] Monocytes/100 WBC (Bld) 6.1 % [facility] Neutrophils (Bld) [#/Vol] 6.16 10*3/uL [facility] Neutrophils/100 WBC (Bld) 65.5 % [facility] Nucleated RBC (Bld) [#/Vol] 0.00 10*3/uL [facility] Nucleated RBC/100 WBC (Bld) [Ratio] 0.0 % [facility] Platelet mean volume (Bld) [Entitic vol] 11.8 fL 9.4 - 12.4 fL [facility] Platelets (Bld) [#/Vol] 165 10*3/uL [facility] RBC (Bld) [#/Vol] 4.26 10*6/uL [facility] WBC (Bld) [#/Vol] 9.41 10*3/uL [facility] Glucose (Bld) [Mass/Vol]on 0 03-22-2023 Glucose [Mass/Vol] 101 mg/dL High 65 - 99 mg/dL [facility] Interpretation and review of laboratory results Abnormal [facility] Glucose [Mass/Vol] 117 mg/dL High 65 - 99 mg/dL [facility] Interpretation and review of laboratory results Abnormal [facility] Glucose [Mass/Vol] 182 mg/dL High 65 - 99 mg/dL [facility] Interpretation and review of laboratory results Abnormal [facility] Glucose [Mass/Vol] 168 mg/dL High 65 - 99 mg/dL [facility] Interpretation and review of laboratory results Abnormal [facility] Glucose [Mass/Vol] 77 mg/dL 65 - 99 mg/dL [facility] Interpretation and review of laboratory results Normal [facility] Glucose [Mass/Vol] 42 mg/dL Low 65 - 99 mg/dL [facility] Interpretation and review of laboratory results Abnormal [facility] Magnesium Levelon 03-22-2023 Magnesium [Mass/Vol] 2.0 mg/dL 1.6 - 2 .4 mg/dL [facility] Magnesium [Mass/Vol]on 03-22 Interpretation and review of laboratory results Normal [facility] No Panel Informationon 03-22 [facility] Phosphate [Mass/Vol]on 03-22 Interpretation and review of laboratory results Abnormal [facility] Phosphoruson 03-22-2023 Phosphate [Mass/Vol] 2.4 mg/dL Low 2.7 - 4 .5 mg/dL [facility] CBC panel Auto (Bld)on 03-21 Erythrocyte distribution width (RBC) [Entitic vol] 14.0 % 11.6 - 14.8 % [facility] Hematocrit (Bld) [Volume fraction] 35.7 % Low 36.0 - 46.0 % [facility] Hemoglobin (Bld) [Mass/Vol] 11.7 g/dL Low 12.0 - 16.0 g/dL [facility] Interpretation and review of laboratory results Abnormal [facility] MCH (RBC) [Entitic mass] 29.2 pg 26.0 - 34.0 pg [facility] MCHC (RBC) [Mass/Vol] 32.8 g/dL 31.0 - 37.0 g/dL [facility] MCV (RBC) [Entitic vol] 89.0 fL 80.0 - 100.0 fL [facility] Nucleated RBC (Bld) [#/Vol] 0.00 10*3/uL [facility] Nucleated RBC/100 WBC (Bld) [Ratio] 0.0 % [facility] Platelet mean volume (Bld) [Entitic vol] 12.9 fL High 9.4 - 12.4 fL [facility] Platelets (Bld) [#/Vol] 169 10*3/uL [facility] RBC (Bld) [#/Vol] 4.01 10*6/uL [facility]alth WBC (Bld) [#/Vol] 20.82 10*3/uL High [facility] Comprehensive metabolic 2000 panelon 03-21-2023 Albumin [Mass/Vol] 3.3 g/dL 3.2 - 5.2 g/dL [facility] ALP [Catalytic activity/Vol] 71 U/L 40 - 140 U/L [facility] ALT [Catalytic activity/Vol] 20 U/L 14 - 65 U/L [facility] Anion gap [Moles/Vol] 16 mmol/L 10 - 20 mmol/L [facility] AST [Catalytic activity/Vol] 10 U/L 0 - 45 U/L [facility] Bilirubin [Mass/Vol] 0.8 mg/dL 0.0 - 1 .3 mg/dL [facility] Calcium [Mass/Vol] 8.4 mg/dL 8.4 - 10. 2 mg/dL [facility] Chloride [Moles/Vol] 111 mmol/L High 98 - 10 8 mmol/L [facility] Creatinine [Mass/Vol] 0.81 mg/dL 0.40 - 1.10 mg/dL [facility] GFR/1.73 sq M.predicted CKD-EPI (S/P/Bld) [Vol rate/Area] 102 - PINF [facility] Comment on above: Estimated GFR was ca lculated using the 2020 CKD-EPI creatinine equation. Glucose [Mass/Vol] 162 mg/dL High 65 - 99 mg/dL [facility] HCO3 [Moles/Vol] 18 mmol/L Low 21 - 32 mmol/L [facility] Interpretation and review of laboratory results Abnormal [facility] Potassium [Moles/Vol] 3.6 mmol/L 3.5 - 5.1 mmol/L [facility] Protein [Mass/Vol] 6.3 g/dL 6.0 - 8.0 g/dL [facility] Sodium [Moles/Vol] 141 mmol/L 135 - 145 mmol/L [facility] Urea nitrogen [Mass/Vol] 11 mg/dL 8 - 25 mg/dL [facility] Urea nitrogen/Creatinine [Mass ratio] 13.6 mg/mg 10.0 - 20.0 [facility] has implemented the eGFR calculation approach that does not have a coefficient for race that conforms to the NKF-ASN Task Force Recommendations. [facility] Glucose (Bld) [Mass/Vol]on 0 03-21-2023 Glucose [Mass/Vol] 179 mg/dL High 65 - 99 mg/dL [facility] Interpretation and review of laboratory results Abnormal [facility] Glucose [Mass/Vol] 102 mg/dL High 65 - 99 mg/dL [facility] Interpretation and review of laboratory results Abnormal [facility] Glucose [Mass/Vol] 80 mg/dL 65 - 99 mg/dL [facility] Interpretation and review of laboratory results Normal [facility] Glucose [Mass/Vol] 113 mg/dL High 65 - 99 mg/dL [facility] Interpretation and review of laboratory results Abnormal [facility] Magnesiumon 03-21-2023 Magnesium [Mass/Vol] 2.4 mg/dL 1.6 - 2 .4 mg/dL [facility] Magnesium [Mass/Vol]on 07-25 -2023 Interpretation and review of laboratory results Normal [facility] No Panel Informationon 03-21 [facility] Phosphate [Mass/Vol]on 03-21 Interpretation and review of laboratory results Normal [facility] Phosphoruson 03-21-2023 Phosphate [Mass/Vol] 2.7 mg/dL 2.7 - 4 .5 mg/dL [facility] Basic metabolic 1997 panelon 03-20-2023 Anion gap [Moles/Vol] 12 mmol/L 10 - 20 mmol/L [facility] Chloride [Moles/Vol] 108 mmol/L 98 - 10 8 mmol/L [facility] Creatinine [Mass/Vol] 0.98 mg/dL 0.40 - 1.10 mg/dL [facility] GFR/1.73 sq M.predicted CKD-EPI (S/P/Bld) [Vol rate/Area] 81 - PINF [facility] Comment on above: Estimated GFR was ca lculated using the 2020 CKD-EPI creatinine equation. Glucose [Mass/Vol] 247 mg/dL High 65 - 99 mg/dL [facility] HCO3 [Moles/Vol] 24 mmol/L 21 - 32 mmol/L [facility] Potassium [Moles/Vol] 3.5 mmol/L 3.5 - 5.1 mmol/L [facility] Sodium [Moles/Vol] 140 mmol/L 135 - 145 mmol/L [facility] Urea nitrogen [Mass/Vol] 15 mg/dL 8 - 25 mg/dL [facility] Urea nitrogen/Creatinine [Mass ratio] 15.3 mg/mg 10.0 - 20.0 [facility] has implemented the eGFR calculation approach that does not have a coefficient for race that conforms to the NKF-ASN Task Force Recommendations. [facility] Basic metabolic 1999 panelon 03-20-2023 Anion gap [Moles/Vol] 13 mmol/L 10 - 20 mmol/L [facility] Calcium [Mass/Vol] 8.1 mg/dL Low 8.4 - 10. 2 mg/dL [facility] Chloride [Moles/Vol] 106 mmol/L 98 - 10 8 mmol/L [facility] Creatinine [Mass/Vol] 0.86 mg/dL 0.40 - 1.10 mg/dL [facility] GFR/1.73 sq M.predicted CKD-EPI (S/P/Bld) [Vol rate/Area] 95 - PINF [facility] Comment on above: Estimated GFR was ca lculated using the 2020 CKD-EPI creatinine equation. Glucose [Mass/Vol] 316 mg/dL High 65 - 99 mg/dL [facility] HCO3 [Moles/Vol] 21 mmol/L 21 - 32 mmol/L [facility] Interpretation and review of laboratory results Abnormal [facility] Potassium [Moles/Vol] 4.0 mmol/L 3.5 - 5.1 mmol/L [facility] Sodium [Moles/Vol] 136 mmol/L 135 - 145 mmol/L [facility] Urea nitrogen [Mass/Vol] 12 mg/dL 8 - 25 mg/dL [facility] Urea nitrogen/Creatinine [Mass ratio] 14.0 mg/mg 10.0 - 20.0 [facility] has implemented the eGFR calculation approach that does not have a coefficient for race that conforms to the NKF-ASN Task Force Recommendations. [facility] Beta HCG ( test) Ql on 03-20-2023 Interpretation and review of laboratory results Normal [facility] Negative: The result is less than or equal to 5 mIU/mL of HCG. [facility] Beta hydroxybutyrate [Moles/ Vol]on 03-20-2023 Interpretation and review of laboratory results Abnormal [facility] Beta-Hydroxybutyrateon 03-20 Beta hydroxybutyrate [Moles/Vol] 1.8 mmol/L High 0.0 - 0.3 mmol/L [facility] CBC Auto Differentialon 02-26 Basophils (Bld) [#/Vol] 0.04 10*3/uL [facility] Basophils/100 WBC (Bld) 0.4 % [facility] Eosinophils (Bld) [#/Vol] 0.03 10*3/uL [facility] Eosinophils/100 WBC (Bld) 0.3 % [facility] Erythrocyte distribution width (RBC) [Entitic vol] 13.7 % 11.6 - 14.8 % [facility] Hematocrit (Bld) [Volume fraction] 38.9 % 36.0 - 46.0 % [facility] Hemoglobin (Bld) [Mass/Vol] 13.0 g/dL 12.0 - 16.0 g/dL [facility] Immature granulocytes (Bld) [#/Vol] 0.08 10*3/uL [facility] Immature granulocytes/100 WBC (Bld) 0.80 % [facility] Comment on above: The IG parameter is the percentage of metamyelocytes, myelocytes and promyelocytes. An immature granulocyte count (IG) of 1% or more suggests the possibility of infection, an IG count of 3% is very likely related to an infection. Interpretation and review of laboratory results Abnormal [facility] Lymphocytes (Bld) [#/Vol] 2.45 10*3/uL [facility] Lymphocytes/100 WBC (Bld) 23.6 % [facility] MCH (RBC) [Entitic mass] 29.0 pg 26.0 - 34.0 pg [facility] MCHC (RBC) [Mass/Vol] 33.4 g/dL 31.0 - 37.0 g/dL [facility] MCV (RBC) [Entitic vol] 86.6 fL 80.0 - 100.0 fL [facility] Monocytes (Bld) [#/Vol] 0.62 10*3/uL [facility] Monocytes/100 WBC (Bld) 6.0 % [facility] Neutrophils (Bld) [#/Vol] 7.17 10*3/uL High [facility] Neutrophils/100 WBC (Bld) 68.9 % [facility] Nucleated RBC (Bld) [#/Vol] 0.00 10*3/uL [facility] Nucleated RBC/100 WBC (Bld) [Ratio] 0.0 % [facility] Platelet mean volume (Bld) [Entitic vol] 12.5 fL High 9.4 - 12.4 fL [facility] Platelets (Bld) [#/Vol] 160 10*3/uL [facility] RBC (Bld) [#/Vol] 4.49 10*6/uL [facility] WBC (Bld) [#/Vol] 10.39 10*3/uL [facility] CT ANGIOGRAM CHEST ABDOMEN P VIS 03-20-2023 CT ANGIOGRAM CHEST ABDOMEN PELVIS EXAMINATION: [...] Note made of prior appendectomy surgical clips. [employer] Workstation ID: [id number] Dictated by: DAVID MOURA on MonMar 20, 2023 9:50:12 AM EDT Transcribed by: TANNER LOVETT on MonMar 20, 2023 9:59:46 AM EDT Finalized by: DAVID MOURA on MonMar 20, 2023 10:29:[address] [facility] Comment on above: Order Comment: Injur y/Trauma or Illness?:Illness/Other How long have you had these symptoms (acute/chronic)?:Acute Reason for exam?:chest and abd pain, vomiting Type of Exam?:Initial Additional signs and symptoms?: CT Angiogram Chest Abdomen P [facility] 03-20-2023 1. No acute thoracoabdominal aortic [...] Note made of prior appendectomy surgical clips. [employer] Workstation ID: [id number] [facility] EXAMINATION: CT ANGIOGRAM CHEST ABDOMEN PELVIS HISTORY: [...] Abdominal wall structures appear to be intact. [employer] David Kulkarni, DO - 03/20/2023 EXAMINATION: [...] appendectomy surgical clips. [employer] Workstation ID: [id number] [facility] Radiology Study observation (narrative) [facility] CT Angiogram Chest Abdomen P elvisOrdered By: David Moura on 03-20-2023 [facility] Work Phone: ECG 12 Leadon 03-20-2023 Siddharth Gagnon MD 03/20/2023 4:45 PM ECG 12 Lead Date/Time: 03/20/2023 4:45 PM Performed by: Siddharth Gagnon MD Authorized by: Mariel Gagnon MD Interpreted by ED attending physician Comparison: not compared with previous ECG Rhythm: sinus rhythm and sinus bradycardia BPM: 56 Conduction: conduction normal ST Segments: ST segments normal T Waves: T waves normal normal IN interval QT Interval: 514 Clinical impression: non-specific ECG and sinus bradycardia [facility] EKGon 03-20-2023 [facility] EKG 12-leadon 03-20-2023 Atrial Rate 56 BPM [facility] P [place] 9 degrees [facility] P-R Interval 130 ms [facility] Q-T Interval 514 ms [facility] QRS Duration 108 ms [facility] QTC Calculation (Bezet) 496 ms [facility] R [place] 51 degrees [facility] T [place] 42 degrees [facility] Ventricular Rate 56 BPM [facility] Sinus bradycardia [facility] sinus arrhythmia Prolonged QT Abnormal ECG ECG Cart Interpretation see physician note for interpretation. Confirmed by Zita Dozier ([id number]) on 03/20/2023 1:39:42 PM [facility] Atrial Rate 73 BPM [facility] P [place] 45 degrees [facility] P-R Interval 136 ms [facility] Q-T Interval 398 ms [facility] QRS Duration 92 ms [facility] QTC Calculation (Bezet) 438 ms [facility] R [place] 83 degrees [facility] T [place] 53 degrees [facility] Ventricular Rate 73 BPM [facility] th Mariel Gagnon M D 03/21/2023 2:39 PM EKG 12-lead Date/Time: 03/20/2023 6:02 AM Performed by: Mariel Gagnon MD Authorized by: Mariel Gagnon MD Interpreted by ED attending physician Rhythm: sinus rhythm BPM: 73 QRS axis: normal Clinical impression: normal ECG MUSE [facility] Glucose (Bld) [Mass/Vol]on 0 03-20-2023 Glucose [Mass/Vol] 245 mg/dL High 65 - 99 mg/dL [facility] Interpretation and review of laboratory results Abnormal [facility] Glucose [Mass/Vol] 284 mg/dL High 65 - 99 mg/dL [facility] Interpretation and review of laboratory results Abnormal [facility] Glucose [Mass/Vol] 406 mg/dL Critically high 65 - 99 mg/d L [facility] Interpretation and review of laboratory results Abnormal [facility] Critical result acte d upon time of test. Test performed at bedside. [facility] HCG (QUALITATIVE)on 03-20-20 23 Beta HCG ( test) Ql Negative Negative [facility] HbA1c (Bld) [Mass fraction]O rdered By: Destinee Baez on 03-20-2023 Average glucose Estimated from glycated hemoglobin (Bld) [Mass/Vol] 160 mg/dL High 68 - 114 mg/dL [facility] Interpretation and review of laboratory results Abnormal [facility] Normal: 4.0% - 5.6% Increased risk for diabetes: 5.7% - 6.4% Diabetes: >= 6.5% Pediatrics: No established reference range Estimated average glucose: 68-114 mg/dL [facility] Hemoglobin [id number] By: Georgina Baez on 03-20-2023 HbA1c (Bld) [Mass fraction] 7.2 % High 4.0 - 5.6 % [facility] Hepatic function 2000 panelo n 03-20-2023 Albumin [Mass/Vol] 3.8 g/dL 3.2 - 5.2 g/dL [facility] ALP [Catalytic activity/Vol] 84 U/L 40 - 140 U/L [facility] ALT [Catalytic activity/Vol] 26 U/L 14 - 65 U/L [facility] [facility] AST [Catalytic activity/Vol] 13 U/L 0 - 45 U/L [facility] Bilirubin [Mass/Vol] 0.6 mg/dL 0.0 - 1 .3 mg/dL [facility] Bilirubin.conjugated [Mass/Vol] 0.1 mg/dL 0.0 - 0.4 mg/dL [facility] Interpretation and review of laboratory results Normal [facility] Protein [Mass/Vol] 7.2 g/dL 6.0 - 8.0 g/dL [facility] Light Blue Topon 03-20-2023 Extra Tube Hold for add-ons. [facility] Comment on above: Auto resulted. [facility] Lipaseon 03-20-2023 Lipase [Catalytic activity/Vol] 53 U/L Low 73 - 393 U/L [facility] Magnesium Levelon 03-20-2023 Magnesium [Mass/Vol] 1.8 mg/dL 1.6 - 2 .4 mg/dL [facility] Magnesium [Mass/Vol]on 03-20 Interpretation and review of laboratory results Normal [facility] No Panel Informationon 03-20 Interpretation and review of laboratory results Abnormal [facility] UrinalysisOrdered By: Alysha Ramos on 03-20-2023 Bacteria Auto Ql (U) None Seen None Seen /hpf [facility] Bilirubin Ql (U) Negative Negative [facility] Clarity Refractometry automated (U) Cloudy Abnormal Clear [facility] Color (U) Yellow Colorless, Yellow [facility] Glucose Auto test strip (U) [Mass/Vol] >=500 Abnormal Negative mg/dL [facility] Hemoglobin Auto test strip Ql (U) Negative Negative [facility] Interpretation and review of laboratory results Abnormal [facility] Ketones (U) [Mass/Vol] mg/dL Abnormal Negative mg/d L [facility] Leukocyte esterase Auto test strip Ql (U) Negative Negative [facility] h Mucus Auto (Urine sed) [#/Area] Rare None Seen, Rare /lpf [facility] Nitrite Auto test strip Ql (U) Negative Negative [facility] pH (U) 7.0 [pH] 5.0 - 7.0 [facility] Protein (U) [Mass/Vol] Negative Negative mg/d L [facility] RBC Auto (Urine sed) [#/Area] 1 [facility] Specific gravity (U) [Rel density] 1.023 1.005 - 1.025 [facility] Urobilinogen (U) [Mass/Vol] mg/dL NINF - 2.0 mg/dL [facility] WBC Auto (Urine sed) [#/Area] 3 [facility] Microscopic examination is performed on all urinalysis samples and only positive findings are reported. The test for blood on the chemical analytic portion of urinalysis may also be positive due to hemoglobinuria and myoglobinuria and if red blood cells are present they are quantified by microscopic examination. [facility] CNPNon 02-26-2023 [facility] Telephone (AKURFL) KATHLEEN VILLA ([id number]) 1995 F CHT Date Time Provider Department 02/26/23 VERITO BORDEN During your visit today, we recorded the following information about you: Verito Borden PA-C 02/26/2023 7:21 AM Signed This pt needs scheduled with dr gonzales or jacquelyn to. Verito Borden PA-C Dennise Witt 03/03/2023 10:57 AM Signed Called and confirmed [...] Anion gap [Moles/Vol] 8 mmol/L Normal 5-16 [facility] Comment on above: Order Comment: Speci men Type: BLOOD SPECIMEN Ordering Facility: [facility] Address: [address] [place] [address] [place], [place] [address] Performed By: #### 3 1201-7, 5195-3, 37496-3, SYPH #### [facility] CLIA [id number] [address] [place], [place] [address] [place] Calcium [Mass/Vol] 8.3 mg/dL Low 8.5-10.5 [facility] Comment on above: Order Comment: Speci men Type: BLOOD SPECIMEN Ordering Facility: [facility] Address: [address] [place] [address] Performed By: #### 3 1201-7, 5195-3, 85397-5, SYPH #### [facility] CLIA [id number] [address] [place], [place] [address] [place] Chloride [Moles/Vol] 106 mmol/L Normal 98-107 [facility] Comment on above: Order Comment: Speci men Type: BLOOD SPECIMEN Ordering Facility: [facility] Address: [address] [place] [address] Performed By: #### 3 1201-7, 5195-3, 99503-2, SYPH #### [facility] CLIA [id number] [address] [place] [address] [place] CO2 [Moles/Vol] 27 mmol/L Normal 21-32 [facility] Comment on above: Order Comment: Speci men Type: BLOOD SPECIMEN Ordering Facility: [facility] Address: [address] [place] [address] Performed By: #### 3 1201-7, 5195-3, 46559-6, SYPH #### [facility] CLIA [id number] [address] [place], [place] [address] [place] Creatinine [Mass/Vol] 0.58 mg/dL Normal 0.51-0.95 [facility] Comment on above: Order Comment: Speci men Type: BLOOD SPECIMEN Ordering Facility: [facility] Address: [address] [place] [address] Result Comment: Cleopatra ents receiving either N-Acetylcysteine (NAC) or Metamizole prior to venipuncture, may have falsely depressed results. Performed By: #### 3 1201-7, 5195-3, 21178-5, SYPH #### [facility] CLIA [id number] [address] [place], [place] [address] [place] ESTIMATED GLOMERULAR FILTRATION RATE 127 mL/min/1.73m??? Normal >=60 [facility] Comment on above: Order Comment: Jon russ Type: BLOOD SPECIMEN Ordering Facility: [facility] Address: [address] [place] [address] Result Comment: Janett mated Glomerular Filtration Rate [...] GFR. Performed By: #### 3 1201-7, 5195-3, 85190-8, SYPH #### [facility] CLIA [id number] [address] [place], [place] [address] [place] Glucose [Mass/Vol] 271 mg/dL High 70-100 [facility] Comment on above: Order Comment: Jon russ Type: BLOOD SPECIMEN Ordering Facility: [facility] Address: [address] [place] [address] Result Comment: The [place] Diabetes Association (ADA) provides guidance for cutoff [...] Standards of Medical Care in Diabetes 2016, [place] [employer]. Diabetes Care. 2016.39(Suppl 1). Results may be falsely elevated after the administration of Sulfapyridine. Results may be falsely depressed after the administration of Sulfasalazine. Performed By: #### 3 1201-7, 5195-3, 00549-4, SYPH #### [facility] CLIA [id number] [address] [place] [address] [place] Potassium [Moles/Vol] 3.4 mmol/L Low 3.5-5.1 [facility] Comment on above: Order Comment: Speci men Type: BLOOD SPECIMEN Ordering Facility: [facility] Address: [address] [place] [address] Performed By: #### 3 1201-7, 5-3, 44395-4, SYPH #### [facility] CLIA [id number] [address] [place] [address] [place] Sodium [Moles/Vol] 141 mmol/L Normal 136-145 [facility] Comment on above: Order Comment: Speci men Type: BLOOD SPECIMEN Ordering Facility: [facility] Address: [address] [place] [address] Performed By: #### 3 1201-7, 5194-3, 41220-3, SYPH #### [facility] CLIA [id number] [address] [place] [address] [place] Urea nitrogen [Mass/Vol] 6 mg/dL Low 7-26 [facility] Comment on above: Order Comment: Speci men Type: BLOOD SPECIMEN Ordering Facility: [facility] Address: [address] [place] [address] Performed By: #### 3 1201-7, 5-3, 14488-2, SYPH #### [facility] CLIA [id number] [address] [place] [address] [place] Anion gap [Moles/Vol] 7 mmol/L Normal 5-16 [facility] Comment on above: Order Comment: Speci men Type: BLOOD SPECIMEN Ordering Facility: [facility] Address: [address] [place] [address] Performed By: #### 3 1201-7, 5195-3, 70253-2, SYPH #### [facility] CLIA [id number] [address] [place] [address] [place] Calcium [Mass/Vol] 8.0 mg/dL Low 8.5-10.5 [facility] Comment on above: Order Comment: Speci men Type: BLOOD SPECIMEN Ordering Facility: [facility] Address: [address] [place] [address] Performed By: #### 3 1201-7, 5195-3, 40379-1, SYPH #### [facility] CLIA [id number] [address] [place] [address] [place] Chloride [Moles/Vol] 106 mmol/L Normal 98-107 [facility] Comment on above: Order Comment: Speci men Type: BLOOD SPECIMEN Ordering Facility: [facility] Address: [address] [place] [address] Performed By: #### 3 1201-7, 5195-3, 02270-6, SYPH #### [facility] CLIA [id number] [address] [place] [address] [place] CO2 [Moles/Vol] 27 mmol/L Normal 21-32 [facility] Comment on above: Order Comment: Speci men Type: BLOOD SPECIMEN Ordering Facility: [facility] Address: [address] [place] [address] Performed By: #### 3 1201-7, 5195-3, 56165-4, SYPH #### [facility] CLIA [id number] [address] [place] [address] [place] Creatinine [Mass/Vol] 0.61 mg/dL Normal 0.51-0.95 [facility] Comment on above: Order Comment: Speci men Type: BLOOD SPECIMEN Ordering Facility: [facility] Address: [address] [place] [address] Result Comment: Cleopatra ents receiving either N-Acetylcysteine (NAC) or Metamizole prior to venipuncture, may have falsely depressed results. Performed By: #### 3 1201-7, 5195-3, 28050-5, SYPH #### [facility] CLIA [id number] [address] [place] [address] [place] ESTIMATED GLOMERULAR FILTRATION RATE 125 mL/min/1.73m??? Normal >=60 [facility] Comment on above: Order Comment: Jon russ Type: BLOOD SPECIMEN Ordering Facility: [facility] Address: [address] [place], [place] [address] Result Comment: Janett mated Glomerular Filtration Rate [...] GFR. Performed By: #### 3 1201-7, 5195-3, 09964-1, SYPH #### [facility] CLIA [id number] [address] [place] [address] [place] Glucose [Mass/Vol] 269 mg/dL High 70-100 [facility] Comment on above: Order Comment: Jon russ Type: BLOOD SPECIMEN Ordering Facility: [facility] Address: [address] [place] [address] Result Comment: The [place] Diabetes Association (ADA) provides guidance for cutoff [...] Standards of Medical Care in Diabetes 2016, [place] [employer]. Diabetes Care. 2016.39(Suppl 1). Results may be falsely elevated after the administration of Sulfapyridine. Results may be falsely depressed after the administration of Sulfasalazine. Performed By: #### 3 1201-7, 5195-3, 19871-2, SYPH #### [facility] CLIA [id number] [address] [place] [address] [place] Potassium [Moles/Vol] 3.5 mmol/L Normal 3.5-5.1 [facility] Comment on above: Order Comment: Speci men Type: BLOOD SPECIMEN Ordering Facility: [facility] Address: [address] [place] [address] Performed By: #### 3 1201-7, 5195-3, 08392-5, SYPH #### [facility] CLIA [id number] [address] [place] [address] [place] Sodium [Moles/Vol] 140 mmol/L Normal 136-145 [facility] Comment on above: Order Comment: Speci men Type: BLOOD SPECIMEN Ordering Facility: [facility] Address: [address] [place] [address] Performed By: #### 3 1201-7, 5195-3, 02077-3, SYPH #### [facility] IA [id number] [address] [place] [address] [place] Urea nitrogen [Mass/Vol] 6 mg/dL Low 7-26 [facility] Comment on above: Order Comment: Speci men Type: BLOOD SPECIMEN Ordering Facility: [facility] Address: [address] [place] [address] Performed By: #### 3 1201-7, 5195-3, 95367-4, SYPH #### [facility] CLIA [id number] [address] [place] [address] [place] CBC W Auto Differential pane l (Bld)on 02-04-2023 Basophils (Bld) [#/Vol] 0.04 10*3/uL Normal <0.11 [facility] Comment on above: Order Comment: Speci men Type: BLOOD SPECIMEN Ordering Facility: [facility] Address: [address] [place] [address] Performed By: #### 3 1201-7, 5195-3, 09207-0, SYPH #### [facility] CLIA [id number] [address] [place] [address] [place] Basophils/100 WBC (Bld) 0.4 % Normal [facility] Comment on above: Order Comment: Speci men Type: BLOOD SPECIMEN Ordering Facility: [facility] Address: [address] [place] [address] Performed By: #### 3 1201-7, 5195-3, 33743-9, SYPH #### [facility] CLIA [id number] [address] [place] [address] [place] Differential cell count method Nom (Bld) Auto Normal [facility] Comment on above: Order Comment: Speci men Type: BLOOD SPECIMEN Ordering Facility: [facility] Address: [address] [place] [address] Performed By: #### 3 1201-7, 5195-3, 47113-8, SYPH #### [facility] CLIA [id number] [address] [place] [address] [place] Eosinophils (Bld) [#/Vol] 0.04 10*3/uL Normal <0.46 [facility] Comment on above: Order Comment: Speci men Type: BLOOD SPECIMEN Ordering Facility: [facility] Address: [address] [place] [address] Performed By: #### 3 1201-7, 5-3, 90604-0, SYPH #### [facility] CLIA [id number] [address] [place] [address] [place] Eosinophils/100 WBC (Bld) 0.4 % Normal [facility] Comment on above: Order Comment: Speci men Type: BLOOD SPECIMEN Ordering Facility: [facility] Address: [address] [place] [address] Performed By: #### 3 1201-7, 5-3, 31187-0, SYPH #### [facility] CLIA [id number] [address] [place] [address] [place] Erythrocyte distribution width (RBC) [Ratio] 13.3 % Normal 11.5-15.0 [facility] Comment on above: Order Comment: Speci men Type: BLOOD SPECIMEN Ordering Facility: [facility] Address: [address] [address] Performed By: #### 3 1201-7, 5195-3, 20691-8, SYPH #### [facility] CLIA [id number] [address] [place] [address] [place] Hematocrit (Bld) [Volume fraction] 34.5 % Low 36.0-46.0 [facility] Comment on above: Order Comment: Speci men Type: BLOOD SPECIMEN Ordering Facility: [facility] Address: [address] [address] Performed By: #### 3 1201-7, 5195-3, 78670-3, SYPH #### [facility] CLIA [id number] [address] [place] [address] [place] Hemoglobin (Bld) [Mass/Vol] 11.6 g/dL Normal 11.5-15.5 [facility] Comment on above: Order Comment: Speci men Type: BLOOD SPECIMEN Ordering Facility: [facility] Address: [address] [address] Performed By: #### 3 1201-7, 5195-3, 88045-1, SYPH #### [facility] CLIA [id number] [address] [place] [address] [place] Immature granulocytes (Bld) [#/Vol] 0.10 10*3/uL High <0.10 [facility] Comment on above: Order Comment: Speci men Type: BLOOD SPECIMEN Ordering Facility: [facility] Address: [address] [address] Performed By: #### 3 1201-7, 5195-3, 70143-2, SYPH #### [facility] CLIA [id number] [address] [place] [address] [place] Immature granulocytes/100 WBC (Bld) 0.9 % Normal [facility] Comment on above: Order Comment: Speci men Type: BLOOD SPECIMEN Ordering Facility: [facility] Address: [address] [place] [address] Performed By: #### 3 1201-7, 5195-3, 69594-8, SYPH #### [facility] CLIA [id number] [address] [place], [place] [address] [place] Lymphocytes (Bld) [#/Vol] 2.41 10*3/uL Normal 1.00-4.00 [facility] Comment on above: Order Comment: Speci men Type: BLOOD SPECIMEN Ordering Facility: [facility] Address: [address] [address] Performed By: #### 3 1201-7, 5195-3, 62690-5, SYPH #### [facility] CLIA [id number] [address] [place] [address] [place] Lymphocytes/100 WBC (Bld) 22.3 % Normal [facility] Comment on above: Order Comment: Speci men Type: BLOOD SPECIMEN Ordering Facility: [facility] Address: [address] [address] Performed By: #### 3 1201-7, 5195-3, 53752-1, SYPH #### [facility] CLIA [id number] [address] [place] [address] [place] MCH (RBC) [Entitic mass] 29.1 pg Normal 26.0-34.0 [facility] Comment on above: Order Comment: Speci men Type: BLOOD SPECIMEN Ordering Facility: [facility] Address: [address] Performed By: #### 3 1201-7, 5195-3, 02030-8, SYPH #### [facility] CLIA [id number] [address] [place] [address] [place] MCHC (RBC) [Mass/Vol] 33.6 g/dL Normal 30.5-36.0 [facility] Comment on above: Order Comment: Speci men Type: BLOOD SPECIMEN Ordering Facility: [facility] Address: [address] [place] [address] Performed By: #### 3 1201-7, 5194-3, 43048-6, SYPH #### [facility] CLIA [id number] [address] [place], [place] [address] [place] MCV (RBC) [Entitic vol] 86.5 fL Normal 80.0-100.0 [facility] Comment on above: Order Comment: Speci men Type: BLOOD SPECIMEN Ordering Facility: [facility] Address: [address] [place] [address] Performed By: #### 3 1201-7, 5194-3, 64821-2, SYPH #### [facility] CLIA [id number] [address] [place] [address] [place] Monocytes (Bld) [#/Vol] 0.70 10*3/uL Normal <0.87 [facility] Comment on above: Order Comment: Speci men Type: BLOOD SPECIMEN Ordering Facility: [facility] Address: [address] [place] [address] Performed By: #### 3 1201-7, 3, , SYPH #### [facility] CLIA [id number] [address] [place] [address] [place] Monocytes/100 WBC (Bld) 6.5 % Normal [facility] Comment on above: Order Comment: Speci men Type: BLOOD SPECIMEN Ordering Facility: [facility] Address: [address] [place] [address] Performed By: #### 3 1201-7, 3, , SYPH #### [facility] CLIA [id number] [address] [place] [address] [place] Neutrophils (Bld) [#/Vol] 7.54 10*3/uL High 1.45-7.50 [facility] Comment on above: Order Comment: Speci men Type: BLOOD SPECIMEN Ordering Facility: [facility] Address: [address] [place] [address] Performed By: #### 3 1201-7, 5-3, 50010-6, SYPH #### [facility] CLIA [id number] [address] [place] [address] [place] Neutrophils/100 WBC (Bld) 69.5 % Normal [facility] Comment on above: Order Comment: Speci men Type: BLOOD SPECIMEN Ordering Facility: [facility] Address: [address] [place] [address] Performed By: #### 3 1201-7, 5195-3, 41566-2, SYPH #### [facility] CLIA [id number] [address] [place] [address] [place] Nucleated RBC (Bld) [#/Vol] 10*3/uL Normal <0.01 [facility] Comment on above: Order Comment: Speci men Type: BLOOD SPECIMEN Ordering Facility: [facility] Address: [address] [place] [address] Performed By: #### 3 1201-7, 5195-3, 95974-6, SYPH #### [facility] CLIA [id number] [address] [place] [address] [place] Nucleated RBC/100 WBC (Bld) [Ratio] 0.0 /100 WBC Normal [facility] Comment on above: Order Comment: Speci men Type: BLOOD SPECIMEN Ordering Facility: [facility] Address: [address] [place] [address] Performed By: #### 3 1201-7, 5195-3, 03127-8, SYPH #### [facility] CLIA [id number] [address] [place] [address] [place] Platelet mean volume (Bld) [Entitic vol] 11.7 fL Normal 9.0-12.7 [facility] Comment on above: Order Comment: Speci men Type: BLOOD SPECIMEN Ordering Facility: [facility] Address: [address] [place] [address] Performed By: #### 3 1201-7, 5195-3, 12628-3, SYPH #### [facility] CLIA [id number] [address] [place] [address] [place] Platelets (Bld) [#/Vol] 163 10*3/uL Normal 150-400 [facility] Comment on above: Order Comment: Speci men Type: BLOOD SPECIMEN Ordering Facility: [facility] Address: [place] [address] Performed By: #### 3 1201-7, 5195-3, 70346-6, SYPH #### [facility] CLIA [id number] [address] [place], [place] [address] [place] RBC (Bld) [#/Vol] 3.99 10*6/uL Normal 3.90-5.20 [facility] Comment on above: Order Comment: Speci men Type: BLOOD SPECIMEN Ordering Facility: [facility] Address: [place] [address] Performed By: #### 3 1201-7, 5195-3, 69905-8, SYPH #### [facility] CLIA [id number] [address] [place], [place] [address] [place] WBC (Bld) [#/Vol] 10.83 10*3/uL Normal 3.70-11.00 [facility] Comment on above: Order Comment: Speci men Type: BLOOD SPECIMEN Ordering Facility: [facility] Address: [place] [address] Performed By: #### 3 1201-7, 5195-3, 22932-2, SYPH #### [facility] CLIA [id number] [address] [place], [place] [address] [place] CNDSon 02-04-2023 CNDS HNO ID: [id number] Author: David Burnett DO Service: Hospital Medicine [...] summary. SPECIALITY SERVICES SEEN DURING HOSPITALIZATION: hospitalist, tableau architect CHIEF COMPLAINT: DKA REASON FOR HOSPITALIZATION: DKA, gastroparesis FINAL DIAGNOSIS: DKA, gastroparesis OPERATIONS/PROCEDURES DURING HOSPITALIZATION: HOSPITAL COURSE: 27-year-old white female who presented 2 days ago on 01/31 secondary to nausea and vomiting at home. Patient has a known history of diabetic gastroparesis. She follows in [facility]. She was admitted to [place]. Unfortunately she has not been tolerating p.o. [...] She will cotninue following with her personal physical therapy attendant outpatient. Follow up with PCP in one [...] ([facility]); Insulin p (more content not included)... [facility] ALLIED HEALTHon 02-03-2023 ALLIED HEALTH HNO ID: [id number] Author: Chaplain Craig Service: Spiritual Care Author Type: Electricians Top Helper Type: Allied Health Filed: 02/03/2023 11:39 AM Note Text: SPIRITUAL CARE PROGRESS NOTE SERVICE DATE: 02/03/2023 SERVICE TIME: 10:35 am While rounding in ICU, attempted to provided spiritual presence to patient. Patient was busy . No family was present. A salvage cutter will follow up. To contact the Spiritual Care Department: Please call [phone]. SIGNATURE: Chaplain Craig PATIENT NAME: Kathleen Villa DATE: February 03, 2023 TIME: 11:37 AM PAGER/CONTACT #: [phone] Normal [facility] Basic metabolic 2000 panelon 02-03-2023 Anion gap [Moles/Vol] 9 mmol/L Normal 5-16 [facility] Comment on above: Order Comment: Speci men Type: BLOOD SPECIMEN Ordering Facility: [facility] Address: [address] [place] [address] Performed By: #### 3 1201-7, 5195-3, 19980-5, SYPH #### [facility] CLIA [id number] [address] [place] [address] [place] Calcium [Mass/Vol] 8.1 mg/dL Low 8.5-10.5 [facility] Comment on above: Order Comment: Speci men Type: BLOOD SPECIMEN Ordering Facility: [facility] Address: [address] [place] [address] Performed By: #### 3 1201-7, 5195-3, 86979-6, SYPH #### [facility] CLIA [id number] [address] [place] [address] [place] Chloride [Moles/Vol] 112 mmol/L High 98-107 [facility] Comment on above: Order Comment: Speci men Type: BLOOD SPECIMEN Ordering Facility: [facility] Address: [address] [place] [address] Performed By: #### 3 1201-7, 5195-3, 23393-8, SYPH #### [facility] CLIA [id number] [address] [place] [address] [place] CO2 [Moles/Vol] 22 mmol/L Normal 21-32 [facility] Comment on above: Order Comment: Jon russ Type: BLOOD SPECIMEN Ordering Facility: [facility] Address: [address] [place] [address] Performed By: #### 3 1201-7, 5195-3, 47238-9, SYPH #### [facility] CLIA [id number] [address] [place] [address] [place] Creatinine [Mass/Vol] 0.57 mg/dL Normal 0.51-0.95 [facility] Comment on above: Order Comment: Jon russ Type: BLOOD SPECIMEN Ordering Facility: [facility] Address: [address] [place] [address] Result Comment: Cleopatra ents receiving either N-Acetylcysteine (NAC) or Metamizole prior to venipuncture, may have falsely depressed results. Performed By: #### 3 1201-7, 5195-3, 62595-3, SYPH #### [facility] CLIA [id number] [address] [place] [address] [place] ESTIMATED GLOMERULAR FILTRATION RATE 127 mL/min/1.73m??? Normal >=60 [facility] Comment on above: Order Comment: Jon russ Type: BLOOD SPECIMEN Ordering Facility: [facility] Address: [address] [place] [address] Result Comment: Janett mated Glomerular Filtration Rate [...] GFR. Performed By: #### 3 1201-7, 5195-3, 78541-1, SYPH #### [facility] CLIA [id number] [address] [place], [place] [address] [place] Glucose [Mass/Vol] 135 mg/dL High 70-100 [facility] Comment on above: Order Comment: Jon russ Type: BLOOD SPECIMEN Ordering Facility: [facility] Address: [address] [place] [address] Result Comment: The [place] Diabetes Association (ADA) provides guidance for cutoff [...] Standards of Medical Care in Diabetes 2016, [place] [employer]. Diabetes Care. 2016.39(Suppl 1). Results may be falsely elevated after the administration of Sulfapyridine. Results may be falsely depressed after the administration of Sulfasalazine. Performed By: #### 3 1201-7, 5195-3, 93527-1, SYPH #### [facility] CLIA [id number] [address] [place] [address] [place] Potassium [Moles/Vol] 4.0 mmol/L Normal 3.5-5.1 [facility] Comment on above: Order Comment: Jon russ Type: BLOOD SPECIMEN Ordering Facility: [facility] Address: [address] [place] [address] Performed By: #### 3 1201-7, 5195-3, 87794-0, SYPH #### [facility] CLIA [id number] [address] [place] [address] [place] Sodium [Moles/Vol] 143 mmol/L Normal 136-145 [facility] Comment on above: Order Comment: Jon russ Type: BLOOD SPECIMEN Ordering Facility: [facility] Address: [address] [place] [address] Performed By: #### 3 1201-7, 5195-3, 48470-7, SYPH #### [facility] CLIA [id number] [address] [place] [address] OF [place] Urea nitrogen [Mass/Vol] 8 mg/dL Normal 7- [facility] Comment on above: Order Comment: Speci men Type: BLOOD SPECIMEN Ordering Facility: [facility] Address: [place] [address] Performed By: #### 3 1201-7, 5195-3, 90146-3, SYPH #### [facility] CLIA [id number] [address] [id number] [facility] CASE MGT INIT ASSESon 2022 CASE MGT INIT ASSES HNO ID: [id number] Author: MICHELLE Tobar Service: Social Work 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: 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: Care Mgt Initial Assessment Filed: 02/03/2023 2:35 PM Note Text: CARE MANAGEMENT: ASSESSMENT AND DISCHARGE PLAN SERVICE DATE: February 03, 2023 SERVICE TIME: 2:31 PM PCP: Vivi Smith MD Primary Contact: Extended Emergency Contact Information Primary Emergency Contact: Rene Christie Brandon Relation: Significant other Admission Status: Inpatient Insurance Provider: [facility] MEDIC[facility] Discharge Planning requested by: Per Department Practice Potential Transition Plans Home Advance Directives Current Advance Directive: None Sugar Laboratory Assistant Attempted to Assist with AD Completion: Yes [...] Be able to go home, General wellness [place] of Choice Explained: [place] of Choice Given: No Reason Not Given: [...] 03, 2023 TIME: 2:31 PM CONTACT #: [phone] Normal [facility] CBC W Auto Differential pane l (Bld)on 02-03-2023 Basophils (Bld) [#/Vol] 0.05 10*3/uL Normal <0.11 [facility] Comment on above: Order Comment: Jon russ Type: BLOOD SPECIMEN Ordering Facility: [facility] Address: [address] [place] [address] Performed By: #### 3 1201-7, 5195-3, 84200-1, SYPH #### [facility] CLIA [id number] [address] [place] [address] [place] Basophils/100 WBC (Bld) 0.3 % Normal [facility] Comment on above: Order Comment: Jon russ Type: BLOOD SPECIMEN Ordering Facility: [facility] Address: [address] [place] [address] Performed By: #### 3 1201-7, 5195-3, 56411-7, SYPH #### [facility] CLIA [id number] [address] [place] [address] [place] Differential cell count method Nom (Bld) Auto Normal [facility] Comment on above: Order Comment: Speci men Type: BLOOD SPECIMEN Ordering Facility: [facility] Address: [address] [place] [address] Performed By: #### 3 1201-7, 5195-3, 81680-6, SYPH #### [facility] CLIA [id number] [address] [place] [address] [place] Eosinophils (Bld) [#/Vol] 10*3/uL Normal <0.46 [facility] Comment on above: Order Comment: Speci men Type: BLOOD SPECIMEN Ordering Facility: [facility] Address: [address] [place] [address] Performed By: #### 3 1201-7, 5195-3, 27469-1, SYPH #### [facility] CLIA [id number] [address] [place] [address] [place] Eosinophils/100 WBC (Bld) 0.0 % Normal [facility] Comment on above: Order Comment: Speci men Type: BLOOD SPECIMEN Ordering Facility: [facility] Address: [address] [place] [address] Performed By: #### 3 1201-7, 5195-3, 50657-5, SYPH #### [facility] CLIA [id number] [address] [place] [address] [place] Erythrocyte distribution width (RBC) [Ratio] 13.5 % Normal 11.5-15.0 [facility] Comment on above: Order Comment: Speci men Type: BLOOD SPECIMEN Ordering Facility: [facility] Address: [address] [place] [address] Performed By: #### 3 1201-7, 5195-3, 11644-8, SYPH #### [facility] CLIA [id number] [address] [place] [address] [place] Hematocrit (Bld) [Volume fraction] 37.7 % Normal 36.0-46.0 [facility] Comment on above: Order Comment: Speci men Type: BLOOD SPECIMEN Ordering Facility: [facility] Address: [address] [address] Performed By: #### 3 1201-7, 5195-3, 21387-8, SYPH #### [facility] CLIA [id number] [address] [place], [place] [address] [place] Hemoglobin (Bld) [Mass/Vol] 11.8 g/dL Normal 11.5-15.5 [facility] Comment on above: Order Comment: Speci men Type: BLOOD SPECIMEN Ordering Facility: [facility] Address: [address] [address] Performed By: #### 3 1201-7, 5195-3, 59740-9, SYPH #### [facility] CLIA [id number] [address] [place] [address] [place] Immature granulocytes (Bld) [#/Vol] 0.16 10*3/uL High <0.10 [facility] Comment on above: Order Comment: Speci men Type: BLOOD SPECIMEN Ordering Facility: [facility] Address: [address] [place] [address] Performed By: #### 3 1201-7, 5195-3, 82273-1, SYPH #### [facility] CLIA [id number] [address] [place] [address] [place] Immature granulocytes/100 WBC (Bld) 1.0 % Normal [facility] Comment on above: Order Comment: Speci men Type: BLOOD SPECIMEN Ordering Facility: [facility] Address: [address] Performed By: #### 3 1201-7, 5195-3, 89238-5, SYPH #### [facility] CLIA [id number] [address] [place], [place] [address] [place] Lymphocytes (Bld) [#/Vol] 1.76 10*3/uL Normal 1.00-4.00 [facility] Comment on above: Order Comment: Speci men Type: BLOOD SPECIMEN Ordering Facility: [facility] Address: [address] [address] Performed By: #### 3 1201-7, 5195-3, 37367-1, SYPH #### [facility] CLIA [id number] [address] [place] [address] STATES OF [facility] Lymphocytes/100 WBC (Bld) 10.7 % Normal [facility] Comment on above: Order Comment: Speci men Type: BLOOD SPECIMEN Ordering Facility: [facility] Address: [address] [address] Performed By: #### 3 1201-7, 5195-3, 89075-8, SYPH #### [facility] CLIA [id number] [address] [place] [address] [place] MCH (RBC) [Entitic mass] 29.7 pg Normal 26.0-34.0 [facility] Comment on above: Order Comment: Speci men Type: BLOOD SPECIMEN Ordering Facility: [facility] Address: [address] [address] Performed By: #### 3 1201-7, 5195-3, 62756-2, SYPH #### [facility] CLIA [id number] [address] [place] [address] [place] MCHC (RBC) [Mass/Vol] 31.3 g/dL Normal 30.5-36.0 [facility] Comment on above: Order Comment: Speci men Type: BLOOD SPECIMEN Ordering Facility: [facility] Address: [address] [address] Performed By: #### 3 1201-7, 5195-3, 09072-0, SYPH #### [facility] CLIA [id number] [address] [place] [address] [place] MCV (RBC) [Entitic vol] 95.0 fL Normal 80.0-100.0 [facility] Comment on above: Order Comment: Speci men Type: BLOOD SPECIMEN Ordering Facility: [facility] Address: [address] [place] [address] Performed By: #### 3 1201-7, 5195-3, 85483-4, SYPH #### [facility] CLIA [id number] [address] [place], [place] [address] [place] Monocytes (Bld) [#/Vol] 0.77 10*3/uL Normal <0.87 [facility] Comment on above: Order Comment: Speci men Type: BLOOD SPECIMEN Ordering Facility: [facility] Address: [address] [place] [address] Performed By: #### 3 1201-7, 5-3, 56814-9, SYPH #### [facility] CLIA [id number] [address] [place] [address] [place] Monocytes/100 WBC (Bld) 4.7 % Normal [facility] Comment on above: Order Comment: Speci men Type: BLOOD SPECIMEN Ordering Facility: [facility] Address: [address] [place], [place] [address] Performed By: #### 3 1201-7, 5-3, 10062-5, SYPH #### [facility] CLIA [id number] [address] [place] [address] [place] Neutrophils (Bld) [#/Vol] 13.71 10*3/uL High 1.45-7.50 [facility] Comment on above: Order Comment: Speci men Type: BLOOD SPECIMEN Ordering Facility: [facility] Address: [address] [place], [place] [address] Performed By: #### 3 1201-7, 5-3, 48868-9, SYPH #### [facility] CLIA [id number] [address] [place], [place] [address] [place] Neutrophils/100 WBC (Bld) 83.3 % Normal [facility] Comment on above: Order Comment: Speci men Type: BLOOD SPECIMEN Ordering Facility: [facility] Address: [address] [place], [place] [address] Performed By: #### 3 1201-7, 5195-3, 36870-6, SYPH #### [facility] CLIA [id number] [address] [place] [address] [place] Nucleated RBC (Bld) [#/Vol] 10*3/uL Normal <0.01 [facility] Comment on above: Order Comment: Speci men Type: BLOOD SPECIMEN Ordering Facility: [facility] Address: [address] [place] [address] Performed By: #### 3 1201-7, 5195-3, 68573-3, SYPH #### [facility] CLIA [id number] [address] [place] [address] [place] Nucleated RBC/100 WBC (Bld) [Ratio] 0.0 /100 WBC Normal [facility] Comment on above: Order Comment: Speci men Type: BLOOD SPECIMEN Ordering Facility: [facility] Address: [address] [place] [address] Performed By: #### 3 1201-7, 5195-3, 91773-7, SYPH #### [facility] CLIA [id number] [address] [place] [address] [place] Platelet mean volume (Bld) [Entitic vol] 12.4 fL Normal 9.0-12.7 [facility] Comment on above: Order Comment: Speci men Type: BLOOD SPECIMEN Ordering Facility: [facility] Address: [address] [place] [address] Performed By: #### 3 1201-7, 5195-3, 46238-8, SYPH #### [facility] CLIA [id number] [address] [place] [address] [place] Platelets (Bld) [#/Vol] 144 10*3/uL Low 150-400 [facility] Comment on above: Order Comment: Speci men Type: BLOOD SPECIMEN Ordering Facility: [facility] Address: [address] [place] [address] Performed By: #### 3 1201-7, 5195-3, 21071-6, SYPH #### [facility] CLIA [id number] [address] [place], [place] [address] [facility] [place] RBC (Bld) [#/Vol] 3.97 10*6/uL Normal 3.90-5.20 [facility] Comment on above: Order Comment: Speci men Type: BLOOD SPECIMEN Ordering Facility: [facility] Address: [address] [place] [address] Performed By: #### 3 1201-7, 5195-3, 69752-5, SYPH #### [facility] CLIA [id number] [address] [place] [address] OF [facility] WBC (Bld) [#/Vol] 16.45 10*3/uL High 3.70-11.00 [facility] Comment on above: Order Comment: Speci men Type: BLOOD SPECIMEN Ordering Facility: [facility] Address: [address] [place] [address] Performed By: #### 3 1201-7, 5195-3, 23292-6, SYPH #### [facility] CLIA [id number] [address] [place] [address] Comprehensive metabolic 2000 panelon 02-03-2023 Albumin [Mass/Vol] 3.5 g/dL Normal 3.2-5.0 [facility] Comment on above: Order Comment: Speci men Type: BLOOD SPECIMEN Ordering Facility: [facility] Address: [address] [place] [address] Performed By: #### 3 1201-7, 5195-3, 03720-7, SYPH #### [facility] CLIA [id number] [address] [place] [address] [place] ALP [Catalytic activity/Vol] 82 U/L Normal 45-117 [facility] Comment on above: Order Comment: Speci men Type: BLOOD SPECIMEN Ordering Facility: [facility] Address: [address] [place] [address] Performed By: #### 3 1201-7, 5195-3, 11562-4, SYPH #### [facility] CLIA [id number] [address] [place] [address] [place] ALT [Catalytic activity/Vol] 19 U/L Normal 13-61 [facility] Comment on above: Order Comment: Jon russ Type: BLOOD SPECIMEN Ordering Facility: [facility] Address: [address] [place] [address] Result Comment: Resu lts may be falsely depressed after the administration of Sulfasalazine and/or Sulfapyridine. Performed By: #### 3 1201-7, 5195-3, 82160-0, SYPH #### [facility] CLIA [id number] [address] [place] [address] STATES OF [facility] Anion gap [Moles/Vol] 17 mmol/L High 5-16 [facility] Comment on above: Order Comment: Jon russ Type: BLOOD SPECIMEN Ordering Facility: [facility] Address: [address] [place] [address] Performed By: #### 3 1201-7, 5195-3, 09205-7, SYPH #### [facility] CLIA [id number] [address] [place] [address] AST [Catalytic activity/Vol] Normal [facility] Comment on above: Order Comment: Jon russ Type: BLOOD SPECIMEN Ordering Facility: [facility] Address: [address] [place] [address] Result Comment: Unab le to assay due to interference from hemolysis. Suggest reorder as clinically indicated. Critical or Urgent Result(s) Called at: 04:33:47 on 02/03/2023 by milly. Called to and read back by: CLOVIS Results may be falsely depressed after the administration of Sulfasalazine and/or Sulfapyridine. Performed By: #### 3 1201-7, 5195-3, 86817-7, SYPH #### [facility] CLIA [id number] [address] [place] [address] [place] Bilirubin [Mass/Vol] 1.0 mg/dL Normal 0.2-1.0 [facility] Comment on above: Order Comment: Jon russ Type: BLOOD SPECIMEN Ordering Facility: [facility] Address: [address] [place] [address] Performed By: #### 3 1201-7, 5195-3, 13105-9, SYPH #### [facility] CLIA [id number] [address] [place], [place] [address] [place] Calcium [Mass/Vol] 8.5 mg/dL Normal 8.5-10.5 [facility] Comment on above: Order Comment: Speci men Type: BLOOD SPECIMEN Ordering Facility: [facility] Address: [address] [place] [address] Performed By: #### 3 1201-7, 5195-3, 32237-8, SYPH #### [facility] CLIA [id number] [address] [place] [address] [place] Chloride [Moles/Vol] 109 mmol/L High 98-107 [facility] Comment on above: Order Comment: Speci men Type: BLOOD SPECIMEN Ordering Facility: [facility] Address: [address] [place] [address] Performed By: #### 3 1201-7, 5195-3, 95373-0, SYPH #### [facility] CLIA [id number] [address] [place] [address] [place] CO2 [Moles/Vol] 12 mmol/L Low 21-32 [facility] Comment on above: Order Comment: Speci men Type: BLOOD SPECIMEN Ordering Facility: [facility] Address: [address] [place] [address] Performed By: #### 3 1201-7, 5195-3, 07031-7, SYPH #### [facility] CLIA [id number] [address] [place], [place] [address] [place] Creatinine [Mass/Vol] 0.64 mg/dL Normal 0.51-0.95 [facility] Comment on above: Order Comment: Speci men Type: BLOOD SPECIMEN Ordering Facility: [facility] Address: [address] [place] [address] Result Comment: Cleopatra ents receiving either N-Acetylcysteine (NAC) or Metamizole prior to venipuncture, may have falsely depressed results. Performed By: #### 3 1201-7, 5195-3, 90398-1, SYPH #### [facility] CLIA [id number] [address] [place], [place] [address] [place] ESTIMATED GLOMERULAR FILTRATION RATE 124 mL/min/1.73m??? Normal >=60 [facility] Comment on above: Order Comment: Jon russ Type: BLOOD SPECIMEN Ordering Facility: [facility] Address: [address] [place] [address] Result Comment: Janett mated Glomerular Filtration Rate [...] GFR. Performed By: #### 3 1201-7, 5195-3, 60443-9, SYPH #### [facility] CLIA [id number] [address] [place], [place] [address] [place] Glucose [Mass/Vol] 252 mg/dL High 70-100 [facility] Comment on above: Order Comment: Jon russ Type: BLOOD SPECIMEN Ordering Facility: [facility] Address: [address] [place] [address] Result Comment: The [place] [employer] (ADA) provides guidance for cutoff [...] Standards of Medical Care in Diabetes 2016, [place] [employer]. Diabetes Care. 2016.39(Suppl 1). Results may be falsely elevated after the administration of Sulfapyridine. Results may be falsely depressed after the administration of Sulfasalazine. Performed By: #### 3 1201-7, 5195-3, 04997-4, SYPH #### [facility] CLIA [id number] [address] [place], [place] [address] [place] Potassium [Moles/Vol] Normal [facility] Comment on above: Order Comment: Speci jeb Type: BLOOD SPECIMEN Ordering Facility: [facility] Address: [address] [address] Result Comment: Unab le to assay due to interference from hemolysis. Suggest reorder as clinically indicated. Critical or Urgent Result(s) Called at: 04:33:11 on 02/03/2023 by milly. Called to and read back by: CLOVIS Performed By: #### 3 1201-7, 5195-3, 68759-3, SYPH #### [facility] CLIA [id number] [address] [place] [address] [place] Protein [Mass/Vol] 5.8 g/dL Low 6.0-8.5 [facility] Comment on above: Order Comment: Speci men Type: BLOOD SPECIMEN Ordering Facility: [facility] Address: [address] [address] Performed By: #### 3 1201-7, 5195-3, 26539-3, SYPH #### [facility] CLIA [id number] [address] [place] [address] [place] Sodium [Moles/Vol] 138 mmol/L Normal 136-145 [facility] Comment on above: Order Comment: Speci men Type: BLOOD SPECIMEN Ordering Facility: [facility] Address: [address] [address] Performed By: #### 3 1201-7, 5195-3, 10427-2, SYPH #### [facility] CLIA [id number] [address] [place] [address] [place] Urea nitrogen [Mass/Vol] 10 mg/dL Normal 7-26 [facility] Comment on above: Order Comment: Speci men Type: BLOOD SPECIMEN Ordering Facility: [facility] Address: [address] [facility] [address] Performed By: #### 3 1201-7, 5195-3, 07043-1, SYPH #### [facility] CLIA [id number] [address] [place], [place] [id number] [place] JUSTIN Magnesium SerPl-mCncon 02-03 Magnesium [Mass/Vol] 1.8 mg/dL Normal 1.6-2.6 [facility] Comment on above: Order Comment: Speci men Type: BLOOD SPECIMEN Ordering Facility: [facility] Address: [address] [place] [place] [id number] Performed By: #### 3 1201-7, 5195-3, 11941-2, SYPH #### [facility] CLIA [id number] [address] [place], [place] [address] [place] Basic metabolic 2000 panelon 02-02-2023 Anion gap [Moles/Vol] 17 mmol/L High 5-16 [facility] Comment on above: Order Comment: Speci men Type: BLOOD SPECIMEN Ordering Facility: [facility] Address: [address] Performed By: #### 3 1201-7, 5195-3, 95615-5, SYPH #### [facility] CLIA [id number] [address] [place], [place] [address] [place] Calcium [Mass/Vol] 8.0 mg/dL Low 8.5-10.5 [facility] Comment on above: Order Comment: Speci men Type: BLOOD SPECIMEN Ordering Facility: [facility] Address: [address] [phone] Performed By: #### 3 1201-7, 5195-3, 11589-7, SYPH #### [facility] CLIA [id number] [address] [place] [address] [place] Chloride [Moles/Vol] 108 mmol/L High 98-107 [facility] Comment on above: Order Comment: Speci men Type: BLOOD SPECIMEN Ordering Facility: [facility] Address: [address] [place] [address] Performed By: #### 3 1201-7, 5195-3, 79895-3, SYPH #### [facility] CLIA [id number] [address] [place] [address] [place] CO2 [Moles/Vol] 13 mmol/L Low 21-32 [facility] Comment on above: Order Comment: Speci men Type: BLOOD SPECIMEN Ordering Facility: [facility] Address: [address] [address] Performed By: #### 3 1201-7, 5195-3, 47323-0, SYPH #### [facility] CLIA [id number] [address] [place] [address] [place] Creatinine [Mass/Vol] 0.69 mg/dL Normal 0.51-0.95 [facility] Comment on above: Order Comment: Speci men Type: BLOOD SPECIMEN Ordering Facility: [facility] Address: [address] [place] [address] Result Comment: Cleopatra ents receiving either N-Acetylcysteine (NAC) or Metamizole prior to venipuncture, may have falsely depressed results. Performed By: #### 3 1201-7, 5195-3, 33118-4, SYPH #### [facility] CLIA [id number] [address] [place] [address] OF [place] ESTIMATED GLOMERULAR FILTRATION RATE 121 mL/min/1.73m??? Normal >=60 [facility] Comment on above: Order Comment: Speci men Type: BLOOD SPECIMEN Ordering Facility: [facility] Address: [address] [place] [address] Result Comment: Janett mated Glomerular Filtration Rate [...] GFR. Performed By: #### 3 1201-7, 5195-3, 00782-5, SYPH #### [facility] CLIA [id number] [address] [place] [address] [place] Glucose [Mass/Vol] 251 mg/dL High 70-100 [facility] Comment on above: Order Comment: Jon russ Type: BLOOD SPECIMEN Ordering Facility: [facility] Address: [address] [address] Result Comment: The [place] Diabetes Association (ADA) provides guidance for cutoff [...] Standards of Medical Care in Diabetes 2016, [place] [employer]. Diabetes Care. 2016.39(Suppl 1). Results may be falsely elevated after the administration of Sulfapyridine. Results may be falsely depressed after the administration of Sulfasalazine. Performed By: #### 3 1201-7, 5195-3, 65815-9, SYPH #### [facility] CLIA [id number] [address] [place] [address] [place] Potassium [Moles/Vol] 4.4 mmol/L Normal 3.5-5.1 [facility] Comment on above: Order Comment: Jon russ Type: BLOOD SPECIMEN Ordering Facility: [facility] Address: [address] [id number] Performed By: #### 3 1201-7, 5195-3, 11396-8, SYPH #### [facility] CLIA [id number] [address] [place] [address] [place] Sodium [Moles/Vol] 138 mmol/L Normal 136-145 [facility] Comment on above: Order Comment: Jon russ Type: BLOOD SPECIMEN Ordering Facility: [facility] Address: [address] [place] [address] Performed By: #### 3 1201-7, 5195-3, 56115-3, SYPH #### [facility] CLIA [id number] [address] [place], [place] [address] [place] Urea nitrogen [Mass/Vol] 12 mg/dL Normal 7-26 [facility] Comment on above: Order Comment: Speci men Type: BLOOD SPECIMEN Ordering Facility: [facility] Address: [address] [place], [place] [address] Performed By: #### 3 1201-7, 5-3, 83272-8, SYPH #### [facility] CLIA [id number] [address] [place] [address] [place] Anion gap [Moles/Vol] 15 mmol/L Normal 5-16 [facility] Comment on above: Order Comment: Speci men Type: BLOOD SPECIMEN Ordering Facility: [facility] Address: [address] [place] [address] Performed By: #### 3 1201-7, 5194-3, 33979-6, SYPH #### [facility] CLIA [id number] [address] [place] [address] [place] Calcium [Mass/Vol] 8.2 mg/dL Low 8.5-10.5 [facility] Comment on above: Order Comment: Speci men Type: BLOOD SPECIMEN Ordering Facility: [facility] Address: [address] [place], [place] [address] Performed By: #### 3 1201-7, 5-3, 79925-7, SYPH #### [facility] CLIA [id number] [address] [place], [place] [address] [place] Chloride [Moles/Vol] 113 mmol/L High 98-107 [facility] Comment on above: Order Comment: Speci men Type: BLOOD SPECIMEN Ordering Facility: [facility] Address: [address] [place] [address] Performed By: #### 3 1201-7, 5195-3, 64805-0, SYPH #### [facility] CLIA [id number] [address] [place] [address] [place] CO2 [Moles/Vol] 11 mmol/L Low 21-32 [facility] Comment on above: Order Comment: Jon russ Type: BLOOD SPECIMEN Ordering Facility: [facility] Address: [address] [place] [address] Performed By: #### 3 1201-7, 5195-3, 68177-6, SYPH #### [facility] CLIA [id number] [address] [place] [address] [place] Creatinine [Mass/Vol] 0.77 mg/dL Normal 0.51-0.95 [facility] Comment on above: Order Comment: Speci men Type: BLOOD SPECIMEN Ordering Facility: [facility] Address: [address] [place] [address] Result Comment: Cleopatra ents receiving either N-Acetylcysteine (NAC) or Metamizole prior to venipuncture, may have falsely depressed results. Performed By: #### 3 1201-7, 5195-3, 80112-6, SYPH #### [facility] CLIA [id number] [address] [place] [address] [place] ESTIMATED GLOMERULAR FILTRATION RATE 108 mL/min/1.73m??? Normal >=60 [facility] Comment on above: Order Comment: Belindai jeb Type: BLOOD SPECIMEN Ordering Facility: [facility] Address: [address] [place] [address] Result Comment: Janett mated Glomerular Filtration Rate [...] GFR. Performed By: #### 3 1201-7, 5195-3, 32785-7, SYPH #### [facility] CLIA [id number] [address] [place] [address] [place] Glucose [Mass/Vol] 253 mg/dL High 70-100 [facility] Comment on above: Order Comment: Jon russ Type: BLOOD SPECIMEN Ordering Facility: [facility] Address: [address] [place] [address] Result Comment: The [place] Diabetes Association (ADA) provides guidance for cutoff [...] Standards of Medical Care in Diabetes 2016, [place] [employer]. Diabetes Care. 2016.39(Suppl 1). Results may be falsely elevated after the administration of Sulfapyridine. Results may be falsely depressed after the administration of Sulfasalazine. Performed By: #### 3 1201-7, 5195-3, 03009-1, SYPH #### [facility] CLIA [id number] [address] [place] [address] [place] Potassium [Moles/Vol] 4.6 mmol/L Normal 3.5-5.1 [facility] Comment on above: Order Comment: Jon russ Type: BLOOD SPECIMEN Ordering Facility: [facility] Address: [address] [place] [address] Performed By: #### 3 1201-7, 5195-3, 10539-7, SYPH #### [facility] CLIA [id number] [address] [place] [address] [place] Sodium [Moles/Vol] 139 mmol/L Normal 136-145 [facility] Comment on above: Order Comment: Jon russ Type: BLOOD SPECIMEN Ordering Facility: [facility] Address: [address] [place], [place] [address] Performed By: #### 3 1201-7, 5195-3, 27435-2, SYPH #### [facility] CLIA [id number] [address] [place] [address] [place] Urea nitrogen [Mass/Vol] 18 mg/dL Normal 7-26 [facility] Comment on above: Order Comment: Speci men Type: BLOOD SPECIMEN Ordering Facility: [facility] Address: [address] [place] [address] Performed By: #### 3 1201-7, 5195-3, 69374-9, SYPH #### [facility] CLIA [id number] [address] [place] [address] [place] Anion gap [Moles/Vol] 19 mmol/L High 5-16 [facility] Comment on above: Order Comment: Speci men Type: SWAB Ordering Facility: [facility] Address: [address] [place] [address] Performed By: #### 3 6902-5 #### [facility] CLIA [id number] [address] [place] [address] [place] Calcium [Mass/Vol] 8.6 mg/dL Normal 8.5-10.5 [facility] Comment on above: Order Comment: Speci men Type: SWAB Ordering Facility: [facility] Address: [address] [place] [address] Performed By: #### 3 6902-5 #### [facility] CLIA [id number] [address] [place] [address] [place] Chloride [Moles/Vol] 108 mmol/L High 98-107 [facility] Comment on above: Order Comment: Speci men Type: SWAB Ordering Facility: [facility] Address: [address] [place] [address] Performed By: #### 3 6902-5 #### [facility] CLIA [id number] [address] [place] [address] [place] CO2 [Moles/Vol] 9 mmol/L Low 21-32 [facility] Comment on above: Order Comment: Speci men Type: SWAB Ordering Facility: [facility] Address: [address] [place] [address] Result Comment: Crit ical or Urgent Result(s) Called at: 10:32:16 on 02/02/2023 by [facility]. Called to and read back by: Billie SALEEM Performed By: #### 3 6902-5 #### [facility] CLIA [id number] [address] [place] [address] [place] Creatinine [Mass/Vol] 0.82 mg/dL Normal 0.51-0.95 [facility] Comment on above: Order Comment: Speci men Type: SWAB Ordering Facility: [facility] Address: [address] [address] Result Comment: Cleopatra ents receiving either N-Acetylcysteine (NAC) or Metamizole prior to venipuncture, may have falsely depressed results. Performed By: #### 3 6902-5 #### [facility] CLIA [id number] [address] [place] [address] [place] ESTIMATED GLOMERULAR FILTRATION RATE 100 mL/min/1.73m??? Normal >=60 [facility] Comment on above: Order Comment: Speci men Type: SWAB Ordering Facility: [facility] Address: [address] [place] [address] Result Comment: Janett mated Glomerular Filtration Rate [...] GFR. Performed By: #### 3 6902-5 #### [facility] CLIA [id number] [address] [place] [address] [place] Glucose [Mass/Vol] 336 mg/dL High 70-100 [facility] Comment on above: Order Comment: Speci men Type: SWAB Ordering Facility: [facility] Address: [address] [address] Result Comment: The [place] Diabetes Association (ADA) provides guidance for cutoff [...] Standards of Medical Care in Diabetes 2016, [place] [employer]. Diabetes Care. 2016.39(Suppl 1). Results may be falsely elevated after the administration of Sulfapyridine. Results may be falsely depressed after the administration of Sulfasalazine. Performed By: #### 3 6902-5 #### [facility] CLIA [id number] [address] [place] [address] [place] Potassium [Moles/Vol] Normal [facility] Comment on above: Order Comment: Speci men Type: SWAB Ordering Facility: [facility] Address: [address] [address] Result Comment: Unab le to assay due to interference from hemolysis. Suggest reorder as clinically indicated. Spoke to Billie SALEEM Performed By: #### 3 6902-5 #### [facility] CLIA [id number] [address] [place] [address] [place] Sodium [Moles/Vol] 136 mmol/L Normal 136-145 [facility] Comment on above: Order Comment: Speci men Type: SWAB Ordering Facility: [facility] Address: [address] [address] Performed By: #### 3 6902-5 #### [facility] CLIA [id number] [address] [place] [address] [place] Urea nitrogen [Mass/Vol] 19 mg/dL Normal 7-26 [facility] Comment on above: Order Comment: Speci men Type: SWAB Ordering Facility: [facility] Address: [address] [address] Performed By: #### 3 6902-5 #### [facility] CLIA [id number] [address] [place] [address] [place] Anion gap [Moles/Vol] 18 mmol/L High 5-16 [facility] Comment on above: Order Comment: Speci men Type: SWAB Ordering Facility: [facility] Address: [address] [address] Performed By: #### 3 6902-5 #### [facility] CLIA [id number] [address] [place] [address] [place] Calcium [Mass/Vol] 8.6 mg/dL Normal 8.5-10.5 [facility] Comment on above: Order Comment: Speci men Type: SWAB Ordering Facility: [facility] Address: [address] [place] [address] Performed By: #### 3 6902-5 #### [facility] CLIA [id number] [address] [place] [address] [place] Chloride [Moles/Vol] 108 mmol/L High 98-107 [facility] Comment on above: Order Comment: Speci men Type: SWAB Ordering Facility: [facility] Address: [address] [place] [address] Performed By: #### 3 6902-5 #### [facility] CLIA [id number] [address] [place] [address] [place] CO2 [Moles/Vol] 12 mmol/L Low 21-32 [facility] Comment on above: Order Comment: Speci men Type: SWAB Ordering Facility: [facility] Address: [address] [address] Performed By: #### 3 6902-5 #### [facility] CLIA [id number] [address] [place] [address] [place] Creatinine [Mass/Vol] 0.75 mg/dL Normal 0.51-0.95 [facility] Comment on above: Order Comment: Speci men Type: SWAB Ordering Facility: [facility] Address: [address] [place] [address] Result Comment: Cleopatra ents receiving either N-Acetylcysteine (NAC) or Metamizole prior to venipuncture, may have falsely depressed results. Performed By: #### 3 6902-5 #### [facility] CLIA [id number] [address] [place] [address] [place] ESTIMATED GLOMERULAR FILTRATION RATE 111 mL/min/1.73m??? Normal >=60 [facility] Comment on above: Order Comment: Jon russ Type: SWAB Ordering Facility: [facility] Address: [address] [place] [address] Result Comment: Janett mated Glomerular Filtration Rate [...] GFR. Performed By: #### 3 6902-5 #### [facility] CLIA [id number] [address] [place] [address] [place] Glucose [Mass/Vol] 421 mg/dL High 70-100 [facility] Comment on above: Order Comment: Jon russ Type: SWAB Ordering Facility: [facility] Address: [address] [place] [address] Result Comment: The [place] Diabetes Association (ADA) provides guidance for cutoff [...] Standards of Medical Care in Diabetes 2016, [place] [employer]. Diabetes Care. 2016.39(Suppl 1). Results may be falsely elevated after the administration of Sulfapyridine. Results may be falsely depressed after the administration of Sulfasalazine. Performed By: #### 3 6902-5 #### [facility] CLIA [id number] [address] [place] [address] [place] Potassium [Moles/Vol] 4.8 mmol/L Normal 3.5-5.1 [facility] Comment on above: Order Comment: Speci men Type: SWAB Ordering Facility: [facility] Address: [address] [place] [address] Performed By: #### 3 6902-5 #### [facility] CLIA [id number] [address] [place] [address] [place] Sodium [Moles/Vol] 138 mmol/L Normal 136-145 [facility] Comment on above: Order Comment: Speci men Type: SWAB Ordering Facility: [facility] Address: [address] [place] [address] Performed By: #### 3 6902-5 #### [facility] CLIA [id number] [address] [place] [address] [place] Urea nitrogen [Mass/Vol] 20 mg/dL Normal 7-26 [facility] Comment on above: Order Comment: Speci men Type: SWAB Ordering Facility: [facility] Address: [address] [place] [address] Performed By: #### 3 6902-5 #### [facility] CLIA [id number] [address] [place] [address] [place] CBC W Auto Differential pane l (Bld)on 02-02-2023 Basophils (Bld) [#/Vol] 0.03 10*3/uL Normal <0.11 [facility] Comment on above: Order Comment: Speci men Type: BLOOD SPECIMEN Ordering Facility: [facility] Address: [address] [place] [address] Performed By: #### 3 1201-7, 5195-3, 06635-6, SYPH #### [facility] CLIA [id number] [address] [place] [address] [place] Basophils/100 WBC (Bld) 0.1 % Normal [facility] Comment on above: Order Comment: Speci men Type: BLOOD SPECIMEN Ordering Facility: [facility] Address: [address] [place] [address] Performed By: #### 3 1201-7, 5-3, 65677-8, SYPH #### [facility] CLIA [id number] [address] [place] [address] [place] Differential cell count method Nom (Bld) Auto Normal [facility] Comment on above: Order Comment: Speci men Type: BLOOD SPECIMEN Ordering Facility: [facility] Address: [address] [place] [address] Performed By: #### 3 1201-7, 5194-3, , SYPH #### [facility] CLIA [id number] [address] [place] [address] [place] Eosinophils (Bld) [#/Vol] 10*3/uL Normal <0.46 [facility] Comment on above: Order Comment: Speci men Type: BLOOD SPECIMEN Ordering Facility: [facility] Address: [address] [place] [address] Performed By: #### 3 1201-7, 5194-3, , SYPH #### [facility] CLIA [id number] [address] [place] [address] [place] Eosinophils/100 WBC (Bld) 0.0 % Normal [facility] Comment on above: Order Comment: Speci men Type: BLOOD SPECIMEN Ordering Facility: [facility] Address: [address] [place] [address] Performed By: #### 3 1201-7, 5-3, 08519-2, SYPH #### [facility] CLIA [id number] [address] [place] [address] [place] Erythrocyte distribution width (RBC) [Ratio] 14.0 % Normal 11.5-15.0 [facility] Comment on above: Order Comment: Speci men Type: BLOOD SPECIMEN Ordering Facility: [facility] Address: [address] Performed By: #### 3 1201-7, 5195-3, 18635-9, SYPH #### [facility] CLIA [id number] [address] [place] [address] [place] Hematocrit (Bld) [Volume fraction] 33.8 % Low 36.0-46.0 [facility] Comment on above: Order Comment: Speci men Type: BLOOD SPECIMEN Ordering Facility: [facility] Address: [address] Performed By: #### 3 1201-7, 5195-3, 03022-8, SYPH #### [facility] CLIA [id number] [address] [place] [address] [place] Hemoglobin (Bld) [Mass/Vol] 10.8 g/dL Low 11.5-15.5 [facility] Comment on above: Order Comment: Speci men Type: BLOOD SPECIMEN Ordering Facility: [facility] Address: [address] [address] Performed By: #### 3 1201-7, 5195-3, 14441-2, SYPH #### [facility] CLIA [id number] [address] [place] [address] [place] Immature granulocytes (Bld) [#/Vol] 0.19 10*3/uL High <0.10 [facility] Comment on above: Order Comment: Speci men Type: BLOOD SPECIMEN Ordering Facility: [facility] Address: [address] Performed By: #### 3 1201-7, 5195-3, 34718-0, SYPH #### [facility] CLIA [id number] [address] [place] [address] [place] Immature granulocytes/100 WBC (Bld) 0.9 % Normal [facility] Comment on above: Order Comment: Speci men Type: BLOOD SPECIMEN Ordering Facility: [facility] Address: [address] Performed By: #### 3 1201-7, 5195-3, 67010-7, SYPH #### [facility] CLIA [id number] [address] [place], [place] [address] [place] Lymphocytes (Bld) [#/Vol] 2.41 10*3/uL Normal 1.00-4.00 [facility] Comment on above: Order Comment: Speci men Type: BLOOD SPECIMEN Ordering Facility: [facility] Address: [address] [place] [address] Performed By: #### 3 1201-7, 5195-3, 56235-3, SYPH #### [facility] CLIA [id number] [address] [place] [address] [place] Lymphocytes/100 WBC (Bld) 11.6 % Normal [facility] Comment on above: Order Comment: Speci men Type: BLOOD SPECIMEN Ordering Facility: [facility] Address: [address] [place] [address] Performed By: #### 3 1201-7, 5-3, 91963-1, SYPH #### [facility] CLIA [id number] [address] [place] [address] [place] MCH (RBC) [Entitic mass] 29.1 pg Normal 26.0-34.0 [facility] Comment on above: Order Comment: Speci men Type: BLOOD SPECIMEN Ordering Facility: [facility] Address: [address] [place] [address] Performed By: #### 3 1201-7, 5-3, 49051-2, SYPH #### [facility] CLIA [id number] [address] [place] [address] [place] MCHC (RBC) [Mass/Vol] 32.0 g/dL Normal 30.5-36.0 [facility] Comment on above: Order Comment: Speci men Type: BLOOD SPECIMEN Ordering Facility: [facility] Address: [address] [place] [address] Performed By: #### 3 1201-7, 5195-3, 08002-5, SYPH #### [facility] CLIA [id number] [address] [place] [address] [place] MCV (RBC) [Entitic vol] 91.1 fL Normal 80.0-100.0 [facility] Comment on above: Order Comment: Speci men Type: BLOOD SPECIMEN Ordering Facility: [facility] Address: [address] [place] [address] Performed By: #### 3 1201-7, 5195-3, 56831-9, SYPH #### [facility] CLIA [id number] [address] [place] [address] [place] Monocytes (Bld) [#/Vol] 0.93 10*3/uL High <0.87 [facility] Comment on above: Order Comment: Speci men Type: BLOOD SPECIMEN Ordering Facility: [facility] Address: [address] [place] [address] Performed By: #### 3 1201-7, 5195-3, 69247-8, SYPH #### [facility] CLIA [id number] [address] [place] [address] [place] Monocytes/100 WBC (Bld) 4.5 % Normal [facility] Comment on above: Order Comment: Speci men Type: BLOOD SPECIMEN Ordering Facility: [facility] Address: [address] [place] [address] Performed By: #### 3 1201-7, 5195-3, 39872-8, SYPH #### [facility] CLIA [id number] [address] [place] [address] [place] Neutrophils (Bld) [#/Vol] 17.17 10*3/uL High 1.45-7.50 [facility] Comment on above: Order Comment: Speci men Type: BLOOD SPECIMEN Ordering Facility: [facility] Address: [address] [place] [address] Performed By: #### 3 1201-7, 5195-3, 33688-9, SYPH #### [facility] CLIA [id number] [address] [place] [address] [place] Neutrophils/100 WBC (Bld) 82.9 % Normal [facility] Comment on above: Order Comment: Speci men Type: BLOOD SPECIMEN Ordering Facility: [facility] Address: [address] [place] [address] Performed By: #### 3 1201-7, 5195-3, 47961-3, SYPH #### [facility] CLIA [id number] [address] [place] [address] [place] Nucleated RBC (Bld) [#/Vol] 10*3/uL Normal <0.01 [facility] Comment on above: Order Comment: Speci men Type: BLOOD SPECIMEN Ordering Facility: [facility] Address: [address] [place] [address] Performed By: #### 3 1201-7, 5195-3, 55934-6, SYPH #### [facility] CLIA [id number] [address] [place] [address] [place] Nucleated RBC/100 WBC (Bld) [Ratio] 0.0 /100 WBC Normal [facility] Comment on above: Order Comment: Speci men Type: BLOOD SPECIMEN Ordering Facility: [facility] Address: [address] [place] [address] Performed By: #### 3 1201-7, 5195-3, 69190-8, SYPH #### [facility] CLIA [id number] [address] [place] [address] [place] Platelet mean volume (Bld) [Entitic vol] 12.0 fL Normal 9.0-12.7 [facility] Comment on above: Order Comment: Speci men Type: BLOOD SPECIMEN Ordering Facility: [facility] Address: [address] [place] [address] Performed By: #### 3 1201-7, 5195-3, 76758-7, SYPH #### [facility] CLIA [id number] [address] [place], [place] [address] [place] Platelets (Bld) [#/Vol] 164 10*3/uL Normal 150-400 [facility] Comment on above: Order Comment: Speci men Type: BLOOD SPECIMEN Ordering Facility: [facility] Address: [address] [place] [id number] Performed By: #### 3 1201-7, 5195-3, 89316-2, SYPH #### [facility] CLIA [id number] [address] [place], [place] [address] [place] RBC (Bld) [#/Vol] 3.71 10*6/uL Low 3.90-5.20 [facility] Comment on above: Order Comment: Speci men Type: BLOOD SPECIMEN Ordering Facility: [facility] Address: [address] [place] [address] Performed By: #### 3 1201-7, 5195-3, 97829-7, SYPH #### [facility] CLIA [id number] [address] [place] [address] [place] WBC (Bld) [#/Vol] 20.73 10*3/uL High 3.70-11.00 [facility] Comment on above: Order Comment: Speci men Type: BLOOD SPECIMEN Ordering Facility: [facility] Address: [address] [place] [address] Performed By: #### 3 1201-7, 5195-3, 51723-6, SYPH #### [facility] CLIA [id number] [address] [place] [address] [place] Gas and Carbon monoxide pane l (BldV)on 02-02-2023 BASE DEFICIT, VENOUS -16 mmol/L Low -2-0 [facility] Comment on above: Order Comment: Speci men Type: SWAB Ordering Facility: [facility] Address: [address] [place] [address] Performed By: #### 3 6902-5 #### [facility] CLIA [id number] [address] [place], [place] [address] [place] Body temperature 98.6 [degF] Normal [facility] Comment on above: Order Comment: Speci men Type: SWAB Ordering Facility: [facility] Address: [address] [address] Performed By: #### 3 6902-5 #### [facility] CLIA [id number] [address] [place] [address] [place] Calcium.ionized (Bld) [Mass/Vol] 1.14 mmol/L Normal 1.08-1.30 [facility] Comment on above: Order Comment: Speci men Type: SWAB Ordering Facility: [facility] Address: [address] [address] Performed By: #### 3 6902-5 #### [facility] CLIA [id number] [address] [place] [address] [place] Carboxyhemoglobin (BldV) [Mass fraction] 1.0 % Normal 0.0-2.0 [facility] Comment on above: Order Comment: Speci men Type: SWAB Ordering Facility: [facility] Address: [address] [address] Result Comment: Carb oxyhemoglobin Reference Range for Smokers: 2.0-8.0% Performed By: #### 3 6902-5 #### [facility] CLIA [id number] [address] [place] [address] [place] CO2 (BldV) [Partial pressure] 22 mm[Hg] Low 42-55 [facility] Comment on above: Order Comment: Speci men Type: SWAB Ordering Facility: [facility] Address: [address] [place] [address] Performed By: #### 3 6902-5 #### [facility] CLIA [id number] [address] [place] [address] [place] Glucose [Mass/Vol] 335 mg/dL High 60-105 [facility] Comment on above: Order Comment: Speci men Type: SWAB Ordering Facility: [facility] Address: [address] [place] [address] Performed By: #### 3 6902-5 #### [facility] CLIA [id number] [address] [place] [address] [place] HCO3 (Bld) [Moles/Vol] 9 mmol/L Low 24-28 [facility] Comment on above: Order Comment: Speci men Type: SWAB Ordering Facility: [facility] Address: [address] [place] [address] Performed By: #### 3 6902-5 #### [facility] CLIA [id number] [address] [place] [address] [place] Hemoglobin (Bld) [Mass/Vol] 13.1 g/dL Normal 11.5-15.5 [facility] Comment on above: Order Comment: Speci men Type: SWAB Ordering Facility: [facility] Address: [address] [address] Performed By: #### 3 6902-5 #### [facility] CLIA [id number] [address] [place] [address] [place] Lactate [Moles/Vol] 1.8 mmol/L Normal 0.5-2.2 [facility] Comment on above: Order Comment: Speci men Type: SWAB Ordering Facility: [facility] Address: [address] [place] [address] Performed By: #### 3 6902-5 #### [facility] CLIA [id number] [address] [place] [address] [place] Methemoglobin (Bld) [Mass fraction] 0.3 % Normal 0.0-1.5 [facility] Comment on above: Order Comment: Speci men Type: SWAB Ordering Facility: [facility] Address: [address] [address] Performed By: #### 3 6902-5 #### [facility] CLIA [id number] [address] [place] [address] [place] O2 THERAPY RA=Room Air Normal [facility] Comment on above: Order Comment: Speci men Type: SWAB Ordering Facility: [facility] Address: [address] [place] [address] Performed By: #### 3 6902-5 #### [facility] CLIA [id number] [address] [place] [address] [place] Oxygen (BldV) [Partial pressure] 93 mm[Hg] High 35-45 [facility] Comment on above: Order Comment: Speci men Type: SWAB Ordering Facility: [facility] Address: [address] [place] [address] Performed By: #### 3 6902-5 #### [facility] CLIA [id number] [address] [place] [address] [place] Oxyhemoglobin (BldV) [Mass fraction] 94 % Normal 4-98 [facility] Comment on above: Order Comment: Speci men Type: SWAB Ordering Facility: [facility] Address: [address] [place] [address] Performed By: #### 3 6902-5 #### [facility] CLIA [id number] [address] [place] [address] [place] pH (BldV) 7.24 [pH] Low 7.32-7.42 [facility] Comment on above: Order Comment: Speci men Type: SWAB Ordering Facility: [facility] Address: [address] [place] [address] Performed By: #### 3 6902-5 #### [facility] IA [id number] [address] [place] [address] [place] Potassium [Moles/Vol] 5.3 mmol/L Normal 2.5-6.0 [facility] Comment on above: Order Comment: Speci men Type: SWAB Ordering Facility: [facility] Address: [address] [place] [address] Performed By: #### 3 6902-5 #### [facility] CLIA [id number] [address] [place] [address] [place] Sodium [Moles/Vol] 131 mmol/L Low 136-144 [facility] Comment on above: Order Comment: Speci men Type: SWAB Ordering Facility: [facility] Address: [address] [place], [place] [address], [place] [address] Performed By: #### 3 6902-5 #### [facility] CLIA [id number] [address] [place], [place] [address] [place] HISTORY PHYSICALon HISTORY PHYSICAL HNO ID: [id number] Author: Yimi Leroy APRN.TELEGRAPH SERVICE RATER Service: Critical Care Author Type: Nurse Practitioner Type: HANDP Filed: 02/02/2023 9:48 AM Note Text: [facility] SERVICE DATE: February 02, 2023 SERVICE TIME: 919 Consulting Doctor: Dr Diana CHIEF COMPLAINT: DKA HPI: This is a 27-year-old white female who presented 2 days ago on 01/31 secondary to nausea and vomiting at home. Patient has a known history of diabetic gastroparesis. She follows in [facility]. She was admitted to [place]. Unfortunately she has not been tolerating p.o. [...] pump (JUSTIN (more content not included)... Normal [facility] KETONES/ACETONE/BHBon 2022 Beta hydroxybutyrate [Moles/Vol] >6.00 High 0.02-0.27 [facility] Comment on above: Order Comment: Jon russ Type: SWAB Ordering Facility: [facility] Address: [address] [place] [address] Result Comment: Bloo d ketone levels will vary depending on several factors (for example, food intake, alcohol intake and conditions such as ketoacidosis). Patients should be fasting 12 hours prior to collection. Patient samples with high levels of M-Protein (i.e. Gammopathy) may affect the accuracy of this assay. Performed By: #### 3 6902-5 #### [facility] CLIA [id number] [address] [place] [address] [place] Beta hydroxybutyrate [Moles/Vol] 5.70 mmol/L High 0.02-0.27 [facility] Comment on above: Order Comment: Jon russ Type: SWAB Ordering Facility: [facility] Address: [address] [place], [place] [id number] Result Comment: Bloo d ketone levels will vary depending on several factors (for example, food intake, alcohol intake and conditions such as ketoacidosis). Patients should be fasting 12 hours prior to collection. Patient samples with high levels of M-Protein (i.e. Gammopathy) may affect the accuracy of this assay. Performed By: #### 3 6902-5 #### [facility] CLIA [id number] [address] [place], [place] [address] [place] Magnesium SerPl-mCncon 02-02 Magnesium [Mass/Vol] 2.3 mg/dL Normal 1.6-2.6 [facility] Comment on above: Order Comment: Jon russ Type: SWAB Ordering Facility: [facility] Address: [address] [id number] Performed By: #### 3 6902-5 #### [facility] CLIA [id number] [address] [place] [address] [place] Procalcitonin SerPl-mCncon 0 02-02-2023 Procalcitonin [Mass/Vol] 0.33 ng/mL Normal 0.00-0.50 [facility] Comment on above: Order Comment: Jon russ Type: BLOOD SPECIMEN Ordering Facility: [facility] Address: [address] [place] [address] Result Comment: PCT Concentration Interpretation PCT <=0.1 [...] shock. Performed By: #### 3 1201-7, 5195-3, 93069-4, SYPH #### [facility] CLIA [id number] [address] [place], [place] [address] [place] Basic metabolic 2000 panelon 02-01-2023 Anion gap [Moles/Vol] 16 mmol/L Normal 5-16 [facility] Comment on above: Order Comment: Jon russ Type: SWAB Ordering Facility: [facility] Address: [address] [id number] Performed By: #### 3 6902-5 #### [facility] CLIA [id number] [address] [place] [address] [place] Calcium [Mass/Vol] 8.4 mg/dL Low 8.5-10.5 [facility] Comment on above: Order Comment: Speci men Type: SWAB Ordering Facility: [facility] Address: [address] [address] Performed By: #### 3 6902-5 #### [facility] CLIA [id number] [address] [place] [address] [place] Chloride [Moles/Vol] 108 mmol/L High 98-107 [facility] Comment on above: Order Comment: Speci men Type: SWAB Ordering Facility: [facility] Address: [address] [address] Performed By: #### 3 6902-5 #### [facility] CLIA [id number] [address] [place] [address] [place] CO2 [Moles/Vol] 15 mmol/L Low 21-32 [facility] Comment on above: Order Comment: Speci men Type: SWAB Ordering Facility: [facility] Address: [address] [place] [address] Performed By: #### 3 6902-5 #### [facility] CLIA [id number] [address] [place] [address] [place] Creatinine [Mass/Vol] 0.89 mg/dL Normal 0.51-0.95 [facility] Comment on above: Order Comment: Speci men Type: SWAB Ordering Facility: [facility] Address: [address] [address] Result Comment: Cleopatra ents receiving either N-Acetylcysteine (NAC) or Metamizole prior to venipuncture, may have falsely depressed results. Performed By: #### 3 6902-5 #### [facility] CLIA [id number] [address] [place] [address] [place] ESTIMATED GLOMERULAR FILTRATION RATE 91 mL/min/1.73m??? Normal >=60 [facility] Comment on above: Order Comment: Jon russ Type: SWAB Ordering Facility: [facility] Address: [address] [place] [phone] Result Comment: Janett mated Glomerular Filtration Rate [...] GFR. Performed By: #### 3 6902-5 #### [facility] CLIA [id number] [address] [place] [address] [place] Glucose [Mass/Vol] 351 mg/dL High 70-100 [facility] Comment on above: Order Comment: Jon russ Type: SWAB Ordering Facility: [facility] Address: [address] [place] [phone] Result Comment: The [place] Diabetes Association (ADA) provides guidance for cutoff [...] Standards of Medical Care in Diabetes 2016, [place] [employer]. Diabetes Care. 2016.39(Suppl 1). Results may be falsely elevated after the administration of Sulfapyridine. Results may be falsely depressed after the administration of Sulfasalazine. Performed By: #### 3 6902-5 #### [facility] CLIA [id number] [address] [place] [address] [place] Potassium [Moles/Vol] 4.0 mmol/L Normal 3.5-5.1 [facility] Comment on above: Order Comment: Speci men Type: SWAB Ordering Facility: [facility] Address: [address] [address] Performed By: #### 3 6902-5 #### [facility] CLIA [id number] [address] [place] [address] [place] Sodium [Moles/Vol] 139 mmol/L Normal 136-145 [facility] Comment on above: Order Comment: Speci men Type: SWAB Ordering Facility: [facility] Address: [address] [address] Performed By: #### 3 6902-5 #### [facility] CLIA [id number] [address] [place] [address] [place] Urea nitrogen [Mass/Vol] 19 mg/dL Normal 7-26 [facility] Comment on above: Order Comment: Speci men Type: SWAB Ordering Facility: [facility] Address: [address] [address] Performed By: #### 3 6902-5 #### [facility] CLIA [id number] [address] [place] [address] [place] CBC panel Auto (Bld)on 02-01 Erythrocyte distribution width (RBC) [Ratio] 13.3 % Normal 11.5-15.0 [facility] Comment on above: Order Comment: Speci men Type: BLOOD SPECIMENOrdering Facility: [facility] Address: [address] [address] Performed By: #### L [id number] #### [facility] CLIA [id number] [address] [place] [address] [place] Hematocrit (Bld) [Volume fraction] 38.4 % Normal 36.0-46.0 [facility] Comment on above: Order Comment: Speci men Type: BLOOD SPECIMENOrdering Facility: [facility] Address: [address] [address] Performed By: #### L [id number] #### [facility] CLIA [id number] [address] OF [place] Hemoglobin (Bld) [Mass/Vol] 12.6 g/dL Normal 11.5-15.5 [facility] Comment on above: Order Comment: Speci men Type: BLOOD SPECIMENOrdering Facility: [facility] Address: [address] [place] [address] Performed By: #### L [id number] #### [facility] CLIA [id number] [address] [place] [address] [place] MCH (RBC) [Entitic mass] 29.2 pg Normal 26.0-34.0 [facility] Comment on above: Order Comment: Speci men Type: BLOOD SPECIMENOrdering Facility: [facility] Address: [address] [place] [address] Performed By: #### L [id number] #### [facility] CLIA [id number] [address] [place] [address] [place] MCHC (RBC) [Mass/Vol] 32.8 g/dL Normal 30.5-36.0 [facility] Comment on above: Order Comment: Speci men Type: BLOOD SPECIMENOrdering Facility: [facility] Address: [address] [place] [address] Performed By: #### L [id number] #### [facility] CLIA [id number] [address] [place] [address] [place] MCV (RBC) [Entitic vol] 88.9 fL Normal 80.0-100.0 [facility] Comment on above: Order Comment: Speci men Type: BLOOD SPECIMENOrdering Facility: [facility] Address: [address] [place] [address] Performed By: #### L [id number] #### [facility] CLIA [id number] [address] [place] [address] [place] [facility] [place] Nucleated RBC (Bld) [#/Vol] 10*3/uL Normal <0.01 [facility] Comment on above: Order Comment: Speci men Type: BLOOD SPECIMENOrdering Facility: [facility] Address: [address] Performed By: #### L [id number] #### [facility] CLIA [id number] [address] [place] [address] [place] Platelet mean volume (Bld) [Entitic vol] 13.5 fL High 9.0-12.7 [facility] Comment on above: Order Comment: Speci men Type: BLOOD SPECIMENOrdering Facility: [facility] Address: [address] Performed By: #### L [id number] #### [facility] CLIA [id number] [address] [place] [address] [place] Platelets (Bld) [#/Vol] 139 10*3/uL Low 150-400 [facility] Comment on above: Order Comment: Speci men Type: BLOOD SPECIMENOrdering Facility: [facility] Address: [address] [address] Result Comment: No c lot detected. Performed By: #### L [id number] #### [facility] CLIA [id number] [address] [place] [address] [place] RBC (Bld) [#/Vol] 4.32 10*6/uL Normal 3.90-5.20 [facility] Comment on above: Order Comment: Speci men Type: BLOOD SPECIMENOrdering Facility: [facility] Address: [address] Performed By: #### L [id number] #### [facility] CLIA [id number] [address] [place] [address] [place] WBC (Bld) [#/Vol] 16.97 10*3/uL High 3.70-11.00 [facility] Comment on above: Order Comment: Speci men Type: BLOOD SPECIMENOrdering Facility: [facility] Address: [address] Performed By: #### L [id number] #### [facility] CLIA [id number] [address] [place] [address] OF [facility] Dipak 02-01-2023 CNPN Telephone (FAMPOR) KATHLEEN VILLA ([id number]) 1995 F CHT Date Time Provider Department [...] (BAQSIMI) 3 mg/actuation nasal spray Use 1 [place] in the nose as needed for low [...] irregularity [N92.6] (more content not included)... Normal [facility] Comprehensive metabolic 2000 panelon 02-01-2023 Albumin [Mass/Vol] 3.8 g/dL Normal 3.2-5.0 [facility] Comment on above: Order Comment: Speci men Type: BLOOD SPECIMENOrdering Facility: [facility] Address: [address] [place] [address] Performed By: #### L [id number] #### [facility] CLIA [id number] [address] [place] [address] [place] [facility] ALP [Catalytic activity/Vol] 84 U/L Normal 45-117 [facility] Comment on above: Order Comment: Speci men Type: BLOOD SPECIMENOrdering Facility: [facility] Address: [address] [place] [address] Performed By: #### L [id number] #### [facility] CLIA [id number] [address] [place] [address] [place] [facility] ALT [Catalytic activity/Vol] 19 U/L Normal 13-61 [facility] Comment on above: Order Comment: Speci men Type: BLOOD SPECIMENOrdering Facility: [facility] Address: [address] [place] [address] Result Comment: Resu lts may be falsely depressed after the administration of Sulfasalazine and/or Sulfapyridine. Performed By: #### L [id number] #### [facility] CLIA [id number] [address] [place] [address] [place] Anion gap [Moles/Vol] 16 mmol/L Normal 5-16 [facility] Comment on above: Order Comment: Speci men Type: BLOOD SPECIMENOrdering Facility: [facility] Address: [address] [place] [address] Performed By: #### L [id number] #### [facility] CLIA [id number] [address] [place] [address] [place] AST [Catalytic activity/Vol] 15 U/L Normal 8-34 [facility] Comment on above: Order Comment: Speci men Type: BLOOD SPECIMENOrdering Facility: [facility] Address: [address] [place] [address] Result Comment: Resu lts may be falsely depressed after the administration of Sulfasalazine and/or Sulfapyridine. Performed By: #### L [id number] #### [facility] CLIA [id number] [address] [place] [address] [place] Bilirubin [Mass/Vol] 0.7 mg/dL Normal 0.2-1.0 [facility] Comment on above: Order Comment: Speci men Type: BLOOD SPECIMENOrdering Facility: [facility] Address: [address] [place] [address] Performed By: #### L [id number] #### [facility] CLIA [id number] [address] [place] [address] [place] Calcium [Mass/Vol] 8.7 mg/dL Normal 8.5-10.5 [facility] Comment on above: Order Comment: Speci men Type: BLOOD SPECIMENOrdering Facility: [facility] Address: [address] [place] [address] Performed By: #### L [id number] #### [facility] CLIA [id number] [address] [place] [address] [place] Chloride [Moles/Vol] 110 mmol/L High 98-107 [facility] Comment on above: Order Comment: Speci men Type: BLOOD SPECIMENOrdering Facility: [facility] Address: [address] [place] [address] Performed By: #### L [id number] #### [facility] CLIA [id number] [address] [place] [address] [place] CO2 [Moles/Vol] 15 mmol/L Low 21-32 [facility] Comment on above: Order Comment: Speci men Type: BLOOD SPECIMENOrdering Facility: [facility] Address: [address] [place] [id number] Performed By: #### L [id number] #### [facility] CLIA [id number] [address] [place] [address] [place] Creatinine [Mass/Vol] 0.66 mg/dL Normal 0.51-0.95 [facility] Comment on above: Order Comment: Jon russ Type: BLOOD SPECIMENOrdering Facility: [facility] Address: [address] [place] [address] Result Comment: Cleopatra ents receiving either N-Acetylcysteine (NAC) or Metamizole prior to venipuncture, may have falsely depressed results. Performed By: #### L [id number] #### [facility] CLIA [id number] [address] [place] [address] [place] ESTIMATED GLOMERULAR FILTRATION RATE 123 mL/min/1.73m??? Normal >=60 [facility] Comment on above: Order Comment: Jon russ Type: BLOOD SPECIMENOrdering Facility: [facility] Address: [address] [place] [address] Result Comment: Janett mated Glomerular Filtration Rate [...] reflect actual GFR. Performed By: #### L [id number] #### [facility] CLIA [id number] [address] [place] [address] [place] Glucose [Mass/Vol] 311 mg/dL High 70-100 [facility] Comment on above: Order Comment: Jon russ Type: BLOOD SPECIMENOrdering Facility: [facility] Address: [address] [address] Result Comment: The [place] Diabetes [employer] (ADA) provides guidance for cutoff [...] Standards of Medical Care in Diabetes 2016, [place] [employer]. Diabetes Care. 2016.39(Suppl 1). Results may be falsely elevated after the administration of Sulfapyridine. Results may be falsely depressed after the administration of Sulfasalazine. Performed By: #### L [id number] #### [facility] CLIA [id number] [address] [place] [address] [place] Potassium [Moles/Vol] 4.4 mmol/L Normal 3.5-5.1 [facility] Comment on above: Order Comment: Jon russ Type: BLOOD SPECIMENOrdering Facility: [facility] Address: [address] [place] [address] Performed By: #### L [id number] #### [facility] CLIA [id number] [address] [place] [address] [place] Protein [Mass/Vol] 6.5 g/dL Normal 6.0-8.5 [facility] Comment on above: Order Comment: Jon russ Type: BLOOD SPECIMENOrdering Facility: [facility] Address: [address] [place] [address] Performed By: #### L [id number] #### [facility] CLIA [id number] [address] [place] [address] [place] Sodium [Moles/Vol] 141 mmol/L Normal 136-145 [facility] Comment on above: Order Comment: Jon russ Type: BLOOD SPECIMENOrdering Facility: [facility] Address: [address] [place] [address] Performed By: #### L [id number] #### [facility] CLIA [id number] [address] [place] [address] [place] Urea nitrogen [Mass/Vol] 15 mg/dL Normal 7-26 [facility] Comment on above: Order Comment: Speci men Type: BLOOD SPECIMENOrdering Facility: [facility] Address: [address], [place] [address] Performed By: #### L [id number] #### [facility] CLIA [id number] [address] [place] [address] [place] ED PROV NOTEon 02-01-2023 ED PROV NOTE HNO ID: [id number] Author: Adryan Alexis PA-C Service: ? Author Type: Physician Black[place] Paver Operator Type: ED Provider Notes Filed: 01/31/2023 [...] SEPSIS LACT (more content not included)... Normal [facility] HISTORY PHYSICALon HISTORY PHYSICAL HNO ID: [id number] Author: Camilo Centeno DO Service: Hospital Medicine Author Type: Physician Type: HANDP Filed: 02/01/2023 8:08 AM Note Text: HISTORY AND PHYSICAL SERVICE DATE: 01/31/2023 SERVICE TIME: 11:46 PM PRIMARY CARE PHYSICIAN: Vivi Smith MD Subjective CHIEF COMPLAINT: Abdominal pain, nausea, and vomiting HPI: Patient is a 27-year-old female who presented to the [facility] emergency department earlier this evening for [...] (BAQSIMI) 3 mg/actuation nasal spray Use 1 [place] in the nose as needed for low [...] or rhonchi (more content not included)... Normal [facility] Magnesium SerPl-mCncon 02-01 Magnesium [Mass/Vol] 1.7 mg/dL Normal 1.6-2.6 [facility] Comment on above: Order Comment: Speci men Type: BLOOD SPECIMENOrdering Facility: [facility] Address: [address] [place] [id number] Performed By: #### L [id number] #### [facility] CLIA [id number] [facility] [place] [address] [place] NURSING PROGon 02-01-2023 NURSING PROG HNO ID: [id number] Author: Avani Seo RN Service: Nursing Author [...] error. It must be returned to the manager organizational. It is now disconnected and she will now take sliding scale insulin for coverage. Normal [facility] Urinalysis complete panel (U )on 02-01-2023 Bacteria LM.HPF (Urine sed) [#/Area] Rare Abnormal None Seen [facility] Comment on above: Order Comment: Speci men Type: URINE SPECIMENOrdering Facility: [facility] Address: [address] [place] [address] Performed By: #### L [id number] #### [facility] CLIA [id number] [address] [place] [address] [place] Bilirubin Ql (U) Negative Normal Negative [facility] Comment on above: Order Comment: Speci men Type: URINE SPECIMENOrdering Facility: [facility] Address: [address] [place] [address] Performed By: #### L [id number] #### [facility] CLIA [id number] [address] [place] [address] [place] Clarity (Unsp spec) Clear Normal Clear [facility] Comment on above: Order Comment: Speci men Type: URINE SPECIMENOrdering Facility: [facility] Address: [address] [address] Performed By: #### L [id number] #### [facility] CLIA [id number] [address] [place] [address] [place] Color (U) Yellow Normal Yellow [facility] Comment on above: Order Comment: Speci men Type: URINE SPECIMENOrdering Facility: [facility] Address: [address] [address] Performed By: #### L [id number] #### [facility] CLIA [id number] [address] [place] [address] [place] Epithelial cells LM.HPF (Urine sed) [#/Area] Few Normal [facility] Comment on above: Order Comment: Speci men Type: URINE SPECIMENOrdering Facility: [facility] Address: [address] [place] [address] Performed By: #### L [id number] #### [facility] CLIA [id number] [address] [place] [address] [place] Glucose Test strip (U) [Mass/Vol] 3+ Abnormal Negative [facility] Comment on above: Order Comment: Speci men Type: URINE SPECIMENOrdering Facility: [facility] Address: [address] [place] [address] Performed By: #### L [id number] #### [facility] CLIA [id number] [address] [place] [address] [place] Hemoglobin Ql (U) 2+ Abnormal Negative [facility] Comment on above: Order Comment: Speci men Type: URINE SPECIMENOrdering Facility: [facility] Address: [address] [place] [address] Performed By: #### L [id number] #### [facility] CLIA [id number] [address] [place] [address] [place] Ketones Ql (U) 2+ Abnormal Negative [facility] Comment on above: Order Comment: Speci men Type: URINE SPECIMENOrdering Facility: [facility] Address: [address] [address] Performed By: #### L [id number] #### [facility] CLIA [id number] [address] [place] [address] Leukocyte esterase Test strip Ql (U) Negative Normal Negative [facility] Comment on above: Order Comment: Speci men Type: URINE SPECIMENOrdering Facility: [facility] Address: [address] [place] [address] Performed By: #### L [id number] #### [facility] CLIA [id number] [address] [place] [address] [place] Nitrite Ql (U) Negative Normal Negative [facility] Comment on above: Order Comment: Speci men Type: URINE SPECIMENOrdering Facility: [facility] Address: [address] [place] [address] Performed By: #### L [id number] #### [facility] CLIA [id number] [address] [place] [address] [place] pH (U) 7.0 [pH] Normal 5.0-8.0 [facility] Comment on above: Order Comment: Speci men Type: URINE SPECIMENOrdering Facility: [facility] Address: [address] [place] [address] Performed By: #### L [id number] #### [facility] CLIA [id number] [address] [place] [address] [place] Protein (U) [Mass/Vol] 1+ Abnormal Negative [facility] Comment on above: Order Comment: Speci men Type: URINE SPECIMENOrdering Facility: [facility] Address: [address] [place] [address] Performed By: #### L [id number] #### [facility] CLIA [id number] [address] [place] [address] [place] RBC LM.HPF (Urine sed) [#/Area] 3-5 /HPF Abnormal 0-3 /HPF [facility] Comment on above: Order Comment: Speci men Type: URINE SPECIMENOrdering Facility: [facility] Address: [address] [address] Performed By: #### L [id number] #### [facility] CLIA [id number] [address] [place] [address] [place] Specific gravity (U) [Rel density] 1.021 Normal 1.005-1.030 [facility] Comment on above: Order Comment: Speci men Type: URINE SPECIMENOrdering Facility: [facility] Address: [address] [address] Performed By: #### L [id number] #### [facility] CLIA [id number] [address] [place] [address] [place] Urobilinogen Ql (U) Negative Normal Negative [facility] Comment on above: Order Comment: Speci men Type: URINE SPECIMENOrdering Facility: [facility] Address: [address] [address] Performed By: #### L [id number] #### [facility] CLIA [id number] [address] [place] [address] [place] WBC LM.HPF (Urine sed) [#/Area] 0-5 /HPF Normal 0-5 /HPF [facility] Comment on above: Order Comment: Speci men Type: URINE SPECIMENOrdering Facility: [facility] Address: [address] [address] Performed By: #### L [id number] #### [facility] CLIA [id number] [address] [place] [address] [place] Basic metabolic 2000 panelon 01-31-2023 Anion gap [Moles/Vol] 16 mmol/L Normal 5-16 [facility] Comment on above: Order Comment: Speci men Type: BLOOD SPECIMENOrdering Facility: [facility] Address: [address] [place] [address] Performed By: #### 2 4325-3, 58374-6, HCG ####[facility] [id number] [place] [address] [place] Calcium [Mass/Vol] 9.9 mg/dL Normal 8.5-10.5 [facility] Comment on above: Order Comment: Speci men Type: BLOOD SPECIMENOrdering Facility: [facility] Address: [address] [place] [address] Performed By: #### 2 4325-3, 26223-9, HCG ####[facility]IA [id number] [place] [address] [place] Chloride [Moles/Vol] 110 mmol/L High 98-107 [facility] Comment on above: Order Comment: Speci men Type: BLOOD SPECIMENOrdering Facility: [facility] Address: [address] [place] [address] Performed By: #### 2 4325-3, 40504-2, HCG ####[facility]ORY[facility]IA [id number] [place] [address] [place] CO2 [Moles/Vol] 15 mmol/L Low 21-32 [facility] Comment on above: Order Comment: Speci men Type: BLOOD SPECIMENOrdering Facility: [facility] Address: [address] [place] [address] Performed By: #### 2 4325-3, 34871-9, HCG ####[facility]ORY[facility]IA [id number] [place] [address] [place] Creatinine [Mass/Vol] 0.65 mg/dL Normal 0.51-0.95 [facility] Comment on above: Order Comment: Speci men Type: BLOOD SPECIMENOrdering Facility: [facility] Address: [address] [place] [address] Result Comment: Cleopatra ents receiving either N-Acetylcysteine (NAC) or Metamizole prior to venipuncture, may have falsely depressed results. Performed By: #### 2 4325-3, 80260-1, HCG ####[facility]ORY[facility]IA [id number] [place] [address] [place] ESTIMATED GLOMERULAR FILTRATION RATE 123 mL/min/1.73m??? Normal >=60 [facility] Comment on above: Order Comment: Jon russ Type: BLOOD SPECIMENOrdering Facility: [facility] Address: [address] [address] Result Comment: Janett mated Glomerular Filtration Rate [...] actual GFR. Performed By: #### 2 4325-3, 10252-8, HCG ####[facility]ORY[facility]IA [id number] [address] [place] [id number] [place] Glucose [Mass/Vol] 248 mg/dL High 70-100 [facility] Comment on above: Order Comment: Jon russ Type: BLOOD SPECIMENOrdering Facility: [facility] Address: [address] [facility] [place] [address] Result Comment: The [place] Diabetes Association (ADA) provides guidance for cutoff [...] Standards of Medical Care in Diabetes 2016, [place] [employer]. Diabetes Care. 2016.39(Suppl 1). Results may be falsely elevated after the administration of Sulfapyridine. Results may be falsely depressed after the administration of Sulfasalazine. Performed By: #### 2 4325-3, 48232-3, HCG ####[facility]ORY[facility]IA [id number] [address] [id number] [place] Potassium [Moles/Vol] 3.8 mmol/L Normal 3.5-5.1 [facility] Comment on above: Order Comment: Speci men Type: BLOOD SPECIMENOrdering Facility: [facility] Address: [address] [address] Performed By: #### 2 4325-3, 28234-4, HCG ####[facility]ORY[facility]IA [id number] [place] [address] [place] Sodium [Moles/Vol] 141 mmol/L Normal 136-145 [facility] Comment on above: Order Comment: Speci men Type: BLOOD SPECIMENOrdering Facility: [facility] Address: [address] [place] [address] Performed By: #### 2 4325-3, 92720-8, HCG ####[facility]ORY[facility]IA [id number] [address] [place] Urea nitrogen [Mass/Vol] 17 mg/dL Normal 7-26 [facility] Comment on above: Order Comment: Speci men Type: BLOOD SPECIMENOrdering Facility: [facility] Address: [address] [place] [address] Performed By: #### 2 4325-3, 26665-1, HCG ####[facility]ORY[facility]IA [id number] [place] [address] [place] CBC W Auto Differential pane l (Bld)on 01-31-2023 Basophils (Bld) [#/Vol] 0.07 10*3/uL Normal <0.11 [facility] Comment on above: Order Comment: Speci men Type: BLOOD SPECIMENOrdering Facility: [facility] Address: [address] [place] [address] Performed By: #### 5 7021-8 ####[facility]ORY[facility]IA [id number] [address] [place] Basophils/100 WBC (Bld) 0.5 % Normal [facility] Comment on above: Order Comment: Speci men Type: BLOOD SPECIMENOrdering Facility: [facility] Address: [address] [place] [address] Performed By: #### 5 7021-8 ####[facility]ORY[facility]IA [id number] [address] [place] Differential cell count method Nom (Bld) Auto Normal [facility] Comment on above: Order Comment: Speci men Type: BLOOD SPECIMENOrdering Facility: [facility] Address: [address] [address] Performed By: #### 5 7021-8 ####[facility]ORYCLIA [id number] [place] [address] [place] Eosinophils (Bld) [#/Vol] 10*3/uL Normal <0.46 [facility] Comment on above: Order Comment: Speci men Type: BLOOD SPECIMENOrdering Facility: [facility] Address: [address] [address] Performed By: #### 5 7021-8 ####[facility]ORY[facility]IA [id number] [address] Eosinophils/100 WBC (Bld) 0.1 % Normal [facility] Comment on above: Order Comment: Speci men Type: BLOOD SPECIMENOrdering Facility: [facility] Address: [address] [place] [address] Performed By: #### 5 7021-8 ####[facility]ORYCLIA [id number] [address] [place] Erythrocyte distribution width (RBC) [Ratio] 12.9 % Normal 11.5-15.0 [facility] Comment on above: Order Comment: Speci men Type: BLOOD SPECIMENOrdering Facility: [facility] Address: [address] [address] Performed By: #### 5 7021-8 ####[facility]ORYCLIA [id number] [address] [place] Hematocrit (Bld) [Volume fraction] 43.2 % Normal 36.0-46.0 [facility] Comment on above: Order Comment: Speci men Type: BLOOD SPECIMENOrdering Facility: [facility] Address: [address] [address] Performed By: #### 5 7021-8 ####[facility]ORYCLIA [id number] [place] [address] [place] Hemoglobin (Bld) [Mass/Vol] 14.8 g/dL Normal 11.5-15.5 [facility] Comment on above: Order Comment: Speci men Type: BLOOD SPECIMENOrdering Facility: [facility] Address: [address] [address] Performed By: #### 5 7021-8 ####[facility]ORYCLIA [id number] [place] [address] [place] Immature granulocytes (Bld) [#/Vol] 0.12 10*3/uL High <0.10 [facility] Comment on above: Order Comment: Speci men Type: BLOOD SPECIMENOrdering Facility: [facility] Address: [address] [address] Performed By: #### 5 7021-8 ####[facility]ORYCLIA [id number] [place] [address] [place] Immature granulocytes/100 WBC (Bld) 0.8 % Normal [facility] Comment on above: Order Comment: Speci men Type: BLOOD SPECIMENOrdering Facility: [facility] Address: [address] [address] Performed By: #### 5 7021-8 ####[facility]ORYCLIA [id number] [place] [address] [place] Lymphocytes (Bld) [#/Vol] 2.36 10*3/uL Normal 1.00-4.00 [facility] Comment on above: Order Comment: Speci men Type: BLOOD SPECIMENOrdering Facility: [facility] Address: [address] [address] Performed By: #### 5 7021-8 ####[facility]ORYCLIA [id number] [place] [address] [place] Lymphocytes/100 WBC (Bld) 15.3 % Normal [facility] Comment on above: Order Comment: Speci men Type: BLOOD SPECIMENOrdering Facility: [facility] Address: [address] [address] Performed By: #### 5 7021-8 ####[facility]ORYCLIA [id number] [address] [place] MCH (RBC) [Entitic mass] 29.1 pg Normal 26.0-34.0 [facility] Comment on above: Order Comment: Speci men Type: BLOOD SPECIMENOrdering Facility: [facility] Address: [address] [address] Performed By: #### 5 7021-8 ####[facility]ORYCLIA [id number] [address] [place] MCHC (RBC) [Mass/Vol] 34.3 g/dL Normal 30.5-36.0 [facility] Comment on above: Order Comment: Speci men Type: BLOOD SPECIMENOrdering Facility: [facility] Address: [address] [address] Performed By: #### 5 7021-8 ####[facility]ORYCLIA [id number] [address] MCV (RBC) [Entitic vol] 84.9 fL Normal 80.0-100.0 [facility] Comment on above: Order Comment: Speci men Type: BLOOD SPECIMENOrdering Facility: [facility] Address: [address] [address] Performed By: #### 5 7021-8 ####[facility]ORYCLIA [id number] [address] Monocytes (Bld) [#/Vol] 0.73 10*3/uL Normal <0.87 [facility] Comment on above: Order Comment: Speci men Type: BLOOD SPECIMENOrdering Facility: [facility] Address: [address] [address] Performed By: #### 5 7021-8 ####[facility]ORYCLIA [id number] [place] [address] [place] Monocytes/100 WBC (Bld) 4.7 % Normal [facility] Comment on above: Order Comment: Speci men Type: BLOOD SPECIMENOrdering Facility: [facility] Address: [address] [place] [address] Performed By: #### 5 7021-8 ####[facility]ORYCLIA [id number] [place] [address] [place] Neutrophils (Bld) [#/Vol] 12.16 10*3/uL High 1.45-7.50 [facility] Comment on above: Order Comment: Speci men Type: BLOOD SPECIMENOrdering Facility: [facility] Address: [address] [place] [address] Performed By: #### 5 7021-8 ####[facility]ORYCLIA [id number] [place] [address] [place] Neutrophils/100 WBC (Bld) 78.6 % Normal [facility] Comment on above: Order Comment: Speci men Type: BLOOD SPECIMENOrdering Facility: [facility] Address: [address] [place] [address] Performed By: #### 5 7021-8 ####[facility] LABORATORYCLIA [id number] [place] [address] [place] Nucleated RBC (Bld) [#/Vol] 10*3/uL Normal <0.01 [facility] Comment on above: Order Comment: Speci men Type: BLOOD SPECIMENOrdering Facility: [facility] Address: [address] [place] [address] Performed By: #### 5 7021-8 ####[facility] LABORATORYCLIA [id number] [place] [address] [place] Nucleated RBC/100 WBC (Bld) [Ratio] 0.0 /100 WBC Normal [facility] Comment on above: Order Comment: Speci men Type: BLOOD SPECIMENOrdering Facility: [facility] Address: [address] [address] Performed By: #### 5 7021-8 ####[facility] LABORATORYCLIA [id number] [place] [address] [place] Platelet mean volume (Bld) [Entitic vol] 13.0 fL High 9.0-12.7 [facility] Comment on above: Order Comment: Speci men Type: BLOOD SPECIMENOrdering Facility: [facility] Address: [address] [address] Performed By: #### 5 7021-8 ####[facility] LABORATORYCLIA [id number] [place] [address] [place] Platelets (Bld) [#/Vol] 180 10*3/uL Normal 150-400 [facility] Comment on above: Order Comment: Speci men Type: BLOOD SPECIMENOrdering Facility: [facility] Address: [address] [address] Result Comment: No c lot detected. Performed By: #### 5 7021-8 ####[facility] LABORATORYCLIA [id number] [place] [address] [place] RBC (Bld) [#/Vol] 5.09 10*6/uL Normal 3.90-5.20 [facility] Comment on above: Order Comment: Speci men Type: BLOOD SPECIMENOrdering Facility: [facility] Address: [address] Performed By: #### 5 7021-8 ####[facility]ORATORYCLIA [id number] [place] [address] [place] WBC (Bld) [#/Vol] 15.46 10*3/uL High 3.70-11.00 [facility] Comment on above: Order Comment: Speci men Type: BLOOD SPECIMENOrdering Facility: [facility] Address: [address] [address] Performed By: #### 5 7021-8 ####[facility] LABORATORYCLIA [id number] [facility] [place] [address] [place] [facility] ECG COMPLETEon 01-31-2023 ECG COMPLETE Ventricular Rate : 8 0 BPM Atrial Rate : 80 BPM P-R Interval : 144 ms QRS Duration : 84 ms Q-T Interval : 402 ms QTC Calculation(Bazett) : 463 ms Calculated P Weston : 26 degrees Calculated R Weston : 78 degrees Calculated T Weston : 72 degrees Normal sinus rhythm Nonspecific T wave abnormality Abnormal ECG When compared with ECG of 23-NOV-2022 18:14, Nonspecific T wave abnormality now evident in Lateral leads QT has lengthened Confirmed by ANASTASIA CHENG MD ([id number]) on 01/31/2023 11:03:12 PM NAME : KATHLEEN VILLA PID : [id number] : 1995 Gender : Female Race : ORD : [id number] Procedure Date : Jan 31 2023 19:42:30 Edit Date : Jan 31 2023 23:03:15 Diagnosis: Normal sinus rhythm Nonspecific T wave abnormality Abnormal ECG When compared with ECG of 23-NOV-2022 18:14, Nonspecific T wave abnormality now evident in Lateral leads QT has lengthened Confirmed by ANASTASIA CHENG MD ([id number]) on 01/31/2023 11:03:12 PM Test Reason : STAT Location : 0 : ED 9 Overread By : ANASTASIA CHENG MD Edited By : ANASTASIA CHENG MD Referred By : , Acquired by : [facility], [facility] ED NOTEon 01-31-2023 ED NOTE HNO ID: [id number] Author: Clementina Alarcon RN Service: Nursing Author Type: Registered Nurse Type: ED Notes Filed: 01/31/2023 9:06 PM Note Text: Report to oncto nurse. [facility] ED NOTE HNO ID: [id number] Author: Blaise Flower RN Service: ? Author Type: Registered Nurse Type: ED Notes Filed: 01/31/2023 7:21 PM Note Text: Bed: 09-ED Expected date: 01/31/23 Expected time: Means of arrival: Comments: [facility] ED Triage Noteon 01-31-2023 ED Triage Note HNO ID: [id number] Author: Huy Horton PA-C Service: ? Author Type: Physician [place] Paver Operator Type: ED Triage Notes Filed: 01/31/2023 [...] obtained and pending. SIGNATURE: Huy Horton PA-C Normal [facility] Gas and Carbon monoxide pane l (BldV)on 01-31-2023 BASE DEFICIT, VENOUS -2 mmol/L Normal -2-0 [facility] Comment on above: Order Comment: Speci men Type: VENOUS BLOOD SPECIMENOrdering Facility: [facility] Address: [address] [place] [address] Performed By: #### 2 4344-4 ####[facility] RESPIRATORY THERAPYCLIA [id number] [address] [place] Body temperature 98.6 [degF] Normal [facility] Comment on above: Order Comment: Speci men Type: VENOUS BLOOD SPECIMENOrdering Facility: [facility] Address: [address] [place] [address] Performed By: #### 2 4344-4 ####[facility] RESPIRATORY THERAPYCLIA [id number] [place] [address] [place] Calcium.ionized (Bld) [Mass/Vol] 1.11 mmol/L Normal 1.08-1.30 [facility] Comment on above: Order Comment: Speci men Type: VENOUS BLOOD SPECIMENOrdering Facility: [facility] Address: [address] [place] [address] Performed By: #### 2 4344-4 ####[facility] RESPIRATORY THERAPYCLIA [id number] [address] [place] Carboxyhemoglobin (BldV) [Mass fraction] 0.8 % Normal 0.0-2.0 [facility] Comment on above: Order Comment: Speci men Type: VENOUS BLOOD SPECIMENOrdering Facility: [facility] Address: [address] [address] Result Comment: Carb oxyhemoglobin Reference Range for Smokers: 2.0-8.0% Performed By: #### 2 4344-4 ####[facility] THERAPYCLIA [id number] [place] [address] [place] CO2 (BldV) [Partial pressure] 22 mm[Hg] Low 42-55 [facility] Comment on above: Order Comment: Speci men Type: VENOUS BLOOD SPECIMENOrdering Facility: [facility] Address: [address] [address] Performed By: #### 2 4344-4 ####[facility] RESPIRATORY THERAPYCLIA [id number] [place] [address] [place] Glucose [Mass/Vol] 303 mg/dL High 60-105 [facility] Comment on above: Order Comment: Speci men Type: VENOUS BLOOD SPECIMENOrdering Facility: [facility] Address: [address] [address] Performed By: #### 2 4344-4 ####[facility] RESPIRATORY THERAPYCLIA [id number] [place] [address] [place] HCO3 (Bld) [Moles/Vol] 18 mmol/L Low 24-28 [facility] Comment on above: Order Comment: Speci men Type: VENOUS BLOOD SPECIMENOrdering Facility: [facility] Address: [address] [address] Performed By: #### 2 4344-4 ####[facility] RESPIRATORY THERAPYCLIA [id number] [place] [address] [place] Hemoglobin (Bld) [Mass/Vol] 15.2 g/dL Normal 11.5-15.5 [facility] Comment on above: Order Comment: Speci men Type: VENOUS BLOOD SPECIMENOrdering Facility: [facility] Address: [address] [address] Performed By: #### 2 4344-4 ####[facility] THERAPYCLIA [id number] [place] [address] [place] Lactate [Moles/Vol] 2.1 mmol/L Normal 0.5-2.2 [facility] Comment on above: Order Comment: Speci men Type: VENOUS BLOOD SPECIMENOrdering Facility: [facility] Address: [address] [address] Performed By: #### 2 4344-4 ####[facility] THERAPYCLIA [id number] [place] [address] [place] Methemoglobin (Bld) [Mass fraction] 0.3 % Normal 0.0-1.5 [facility] Comment on above: Order Comment: Speci men Type: VENOUS BLOOD SPECIMENOrdering Facility: [facility] Address: [address] [address] Performed By: #### 2 4344-4 ####[facility] RESPIRATORY THERAPYCLIA [id number] [address] [place] O2 THERAPY RA=Room Air Normal [facility] Comment on above: Order Comment: Speci men Type: VENOUS BLOOD SPECIMENOrdering Facility: [facility] Address: [address] [address] Performed By: #### 2 4344-4 ####[facility] RESPIRATORY THERAPYCLIA [id number] [place] [address] [place] Oxygen (BldV) [Partial pressure] 28 mm[Hg] Low 35-45 [facility] Comment on above: Order Comment: Speci men Type: VENOUS BLOOD SPECIMENOrdering Facility: [facility] Address: [address] [address] Performed By: #### 2 4344-4 ####[facility] THERAPYCLIA [id number] [place] [address] [place] Oxyhemoglobin (BldV) [Mass fraction] 63 % Normal 4-98 [facility] Comment on above: Order Comment: Speci men Type: VENOUS BLOOD SPECIMENOrdering Facility: [facility] Address: [address] [address] Performed By: #### 2 4344-4 ####[facility] THERAPYCLIA [id number] [place] [address] [place] pH (BldV) 7.53 [pH] High 7.32-7.42 [facility] Comment on above: Order Comment: Speci men Type: VENOUS BLOOD SPECIMENOrdering Facility: [facility] Address: [address] [place] [address] Performed By: #### 2 4344-4 ####[facility] RESPIRATORY THERAPYCLIA [id number] [place] [address] [place] Potassium [Moles/Vol] 3.9 mmol/L Normal 2.5-6.0 [facility] Comment on above: Order Comment: Speci men Type: VENOUS BLOOD SPECIMENOrdering Facility: [facility] Address: [address] [place] [address] Performed By: #### 2 4344-4 ####[facility] RESPIRATORY THERAPYCLIA [id number] [address] [place] Sodium [Moles/Vol] 138 mmol/L Normal 136-144 [facility] Comment on above: Order Comment: Speci men Type: VENOUS BLOOD SPECIMENOrdering Facility: [facility] Address: [address] [place] [address] Performed By: #### 2 4344-4 ####[facility] RESPIRATORY THERAPYCLIA [id number] [address] [place] HCG QUAL BLDon 01-31-2023 HCG, QUALITATIVE Negative Normal Negative [facility] Comment on above: Order Comment: Speci men Type: BLOOD SPECIMENOrdering Facility: [facility] Address: [address] [place] [address] Performed By: #### 2 4325-3, 09218-4, HCG ####[facility] LABORATORYCLIA [id number] [address] [place] HIGH SENSITIVITY TROPONIN Io n 01-31-2023 Tropinin I.cardiac panel High sensitivity method <2.5 Normal 0.0-34.0 [facility] Comment on above: Order Comment: Speci men Type: BLOOD SPECIMENOrdering Facility: [facility] Address: [address] [place] [address] Result Comment: This assay uses different antibodies than our current assay, and assays, even by the same manager organizational may recognize different regions of the antibody and cannot be used interchangeably. Expect results of this assay to run higher than the previous assay. Performed By: #### H STROP ####[facility] LABORATORYCLIA [id number] [address] [place] Hepatic function 2000 panelo n 01-31-2023 Albumin [Mass/Vol] 4.3 g/dL Normal 3.2-5.0 [facility] Comment on above: Order Comment: Speci men Type: BLOOD SPECIMENOrdering Facility: [facility] Address: [address] [place] [address] Performed By: #### 2 4325-3, 77007-6, HCG ####[facility] LABORATORYCLIA [id number] [address] [place] ALP [Catalytic activity/Vol] 93 U/L Normal 45-117 [facility] Comment on above: Order Comment: Speci men Type: BLOOD SPECIMENOrdering Facility: [facility] Address: [address] [place] [address] Performed By: #### 2 4325-3, 00137-6, HCG ####[facility] LABORATORYCLIA [id number] [address] STATES OF [facility] ALT [Catalytic activity/Vol] 21 U/L Normal 13-61 [facility] Comment on above: Order Comment: Speci men Type: BLOOD SPECIMENOrdering Facility: [facility] Address: [address] [place] [address] Result Comment: Resu lts may be falsely depressed after the administration of Sulfasalazine and/or Sulfapyridine. Performed By: #### 2 4325-3, 34192-3, HCG ####[facility] LABORATORYCLIA [id number] [address] [id number] [place] [facility] AST [Catalytic activity/Vol] 19 U/L Normal 8-34 [facility] Comment on above: Order Comment: Speci men Type: BLOOD SPECIMENOrdering Facility: [facility] Address: [address] [place] [address] Result Comment: Resu lts may be falsely depressed after the administration of Sulfasalazine and/or Sulfapyridine. Performed By: #### 2 4325-3, 36935-4, HCG ####[facility] LABORATORYCLIA [id number] [place] [address] [place] Bilirubin [Mass/Vol] 0.8 mg/dL Normal 0.2-1.0 [facility] Comment on above: Order Comment: Speci men Type: BLOOD SPECIMENOrdering Facility: [facility] Address: [address] [place] [address] Performed By: #### 2 4325-3, 78741-4, HCG ####[facility] LABORATORYCLIA [id number] [place] [address] [place] Bilirubin.conjugated [Mass/Vol] 0.2 mg/dL Normal 0.0-0.4 [facility] Comment on above: Order Comment: Speci men Type: BLOOD SPECIMENOrdering Facility: [facility] Address: [address] [place] [address] Performed By: #### 2 4325-3, 15645-4, HCG ####[facility] LABORATORYCLIA [id number] [place] [address] [place] Protein [Mass/Vol] 7.3 g/dL Normal 6.0-8.5 [facility] Comment on above: Order Comment: Speci men Type: BLOOD SPECIMENOrdering Facility: [facility] Address: [address] [address] Performed By: #### 2 4325-3, 58680-5, HCG ####[facility] LABORATORYCLIA [id number] [place] [id number] [place] Lipase SerPl-cCncon 02-01-20 23 Lipase [Catalytic activity/Vol] 21 U/L Normal 12-60 [facility] Comment on above: Order Comment: Speci men Type: BLOOD SPECIMENOrdering Facility: [facility] Address: [address] [facility] [place] [id number] Performed By: #### 3 040-3 ####[facility] LABORATORYCLIA [id number] [place] [id number] [facility] SEPSIS LACTATEon 01-31-2023 Lactate [Moles/Vol] 3.0 mmol/L High 0.4-2.0 [facility] Comment on above: Order Comment: Speci men Type: BLOOD SPECIMENOrdering Facility: [facility] Address: [place] [address] Performed By: #### S LACT ####[facility] LABORATORYCLIA [id number] [place] [id number] [facility] XR ACUTE ABD SERIES 2V ABD+C XRon [...] bowel. Consider CT if concern remains high. Giver: CONCHITA Transcribe Date/Time: Jan 31 2023 7:56P Dictated by : SARAVANAN REESE MD This examination was interpreted and the report reviewed and electronically signed by: SARAVANAN REESE MD on Jan 31 2023 8:00PM EST [id number] Normal [facility] Bacteria Ur Culton 3 Bacteria identified Cx Nom (U) CULTURE, URINE: <10,000 CFU/ml Normal Urogenital Dorothy Normal [facility] Comment on above: Performed By: #### 6 30-4 ####[facility] LABORATORYCLIA [id number] [employer] [place] [id number] [place] CNNURSEon 01-25-2023 CNNURSE Nurse Visit (FAMPOR) KATHLEEN VILLA ([id number]) 1995 F CHT Date Time Provider Department 01/25/23 12:30 PM NURSE FAMP [place] FAMPHANI During your visit today, we recorded the [...] Other Visit Diagnosis:Dysuria [R30.0] Order(s):UA DIP B/O [[id number]] Order #: [id number] Prescriptions as of 01/25/2023 - prochlorperazine (COMPAZINE) [...] (BAQSIMI) 3 mg/actuation nasal spray Use 1 [place] in the nose as needed for low [...] 12/08/2022 Encoun (more content not included)... Normal [facility] HEMOGLOBIN A1C (POC)on 01-25 HbA1c (Bld) [Mass fraction] 7.6 % Abnormal 4.2 - 5.6 % [facility] Laboratory - Chemistry and C hemistry - challengeon 01-25-2023 Glucose Ql (U) Negative Neg mg/dL [facility] Ketones Ql (U) Negative Neg [facility] pH (U) 6.5 [pH] 4.5 - 8.0 [facility] Protein.monoclonal (U) [Mass/Vol] Negative Neg mg/dL [facility] Laboratory - Urinalysison Nitrite Ql (U) Negative Neg [facility] No Panel Informationon 01-25 Bilirubin, Urine Negative Neg [facility] Color/Appearance Yellow/clear [facility] Hemoglobin/Blood,Ur Negative Neg [facility] Leukocytes Negative Neg [facility] Specific [place], Ur 1.020 1.005 - 1.030 [facility] Urobilinogen, Urine 0.2 EU Normal ( <1.1) EU [facility] CNPNon 01-24-2023 CNPN Telephone (FAMPOR) KATHLEEN VILLA ([id number]) 1995 F T Date Time Provider Department 01/24/23 VIVI SMITH FAMPHANI During your visit today, we recorded the following information about you: Radha Mandel MA 01/24/2023 11:44 AM Signed Yaima from [facility] called and they need an order [...] (BAQSIMI) 3 mg/actuation nasal spray Use 1 [place] in the nose as needed for low [...] SMITH on (more content not included)... [facility] CNPN Telephone (ALESHIAPOR) KATHLEEN VILLA ([id number]) 1995 F CHT Date Time Provider Department [...] Diagnosis:Left flank pain [R10.9] Order(s):UA DIP B/O [[id number]] Order #: [id number] FUTURE URINE CULTURE [SQURCUL] Order #: [id number] Prescriptions as of 01/25/2023 - prochlorperazine (COMPAZINE) [...] (BAQSIMI) 3 mg/actuation nasal spray Use 1 [place] in the nose as needed for low [...] constipation [K59.04] 10/27 (more content not included)... [facility] FRIEDAN Telephone (HETRME) DAISYKATHLEEN ([id number]) 1995 F CHT Date Time Provider Department [...] (BAQSIMI) 3 mg/actuation nasal spray Use 1 [place] in the nose as needed for low [...] Status:Closed by YAIMA AGUILAR on 01/26/23 Normal [facility] Bacteria Ur Culton 3 Bacteria identified Cx Nom (U) CULTURE, URINE: 10,000-<50,000 CFU/mL Three or more organisms, no one type predominant, suggesting contamination during collection. Recollect if clinically indicated. Abnormal [facility] Comment on above: Performed By: #### 6 30-4 ####[facility] LABORATORYCLIA [id number] [employer] [place] CNOVon 01-20-2023 CNOV Office Visit (FAMPOR ) KATHLEEN VILLA ([id number]) 1995 F CHT Date Time Provider Department 01/20/23 11:00 AM [...] 200s/. She sees Endo next week. 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 Normal [facility] C. trachomatis+N. gonorrhoea e DNA DANIEL+probe Ql (Unsp spec)on 01-12-2023 C. trachomatis DNA DANIEL+probe Ql (Unsp spec) Negative Normal Negative for Chlamydia trachomatis by amplificaton [facility] Comment on above: Order Comment: Speci men Type: SWAB [facility] Address: [address] [place] [address] Performed By: #### 3 6902-5 #### [facility] CLIA [id number] [address] [place] [address] OF [facility] N. gonorrhoeae DNA DANIEL+probe Ql (Unsp spec) Negative Normal Negative for Neisseria gonorrhoeae by amplification [facility] Comment on above: Order Comment: Speci men Type: SWAB [facility] Address: [address] [place] [address] Performed By: #### 3 6902-5 #### [facility] CLIA [id number] [address] [place] [address] [place] CNOVon 01-12-2023 CNOV Office Visit (OBGYMM ) KATHLEEN VILLA ([id number]) 1995 F CHT Date Time Provider Department 01/12/23 1:00 PM MADONNA TORO During your visit today, we recorded the [...] fevers GI: No nausea, vomiting, or diarrhea PULVERIZER TENDER: Negative for abnormal vaginal bleeding, abnormal vaginal [...] AND 2 IG Call with results. Madonna Toro DO Allergies As of Date: 01/12/2023 Noted Allergy [...] [SQGCCAMP] Order (more content not included)... Normal [facility] HBV surface Ag Ser Qlon 12-26 HBV surface Ag Ql (S) Non-Reactive Normal Equivo cristina, Nonreactive [facility] Comment on above: Order Comment: Speci men Type: BLOOD SPECIMEN [facility] Address: [address] [place] [address] Result Comment: Resu lts were obtained with the [employer] IM IgM assay. Values obtained with different manufactures' assay methods may not be used interchangeably. Performed By: #### 3 1201-7, 5195-3, 87194-3, SYPH #### [facility] CLIA [id number] [address] [place] [address] [place] [facility] HCV Ab Ser Qlon 01-12-2023 HCV Ab Ql (S) Non-Reactive Normal Nonreactive [facility] Comment on above: Order Comment: Speci men Type: BLOOD SPECIMEN [facility] Address: [address] [place] [address] Result Comment: Scre ening test negative Nonreactive HCV Antibody Screen is consistent with no HCV infection, unless recent infection is suspected or other evidence exists to indicate HCV infection. Results were obtained with the [employer] IM IgM assay. Values obtained with different manufactures' assay methods may not be used interchangeably. Performed By: #### 3 1201-7, 5195-3, 53569-0, SYPH #### [facility] CLIA [id number] [address] [place] [address] [place] HIV 1+2 Ab IA Qlon HIV 1+2 Ab+HIV1 p24 Ag IA Ql Non-Reactive Normal Nonreactive [facility] Comment on above: Order Comment: Speci men Type: BLOOD SPECIMEN [facility] Address: [address] [place] [address] Result Comment: Nonr eactive: Less than 1.0 index value Specimens with an index value <1.0 are considered nonreactive for antibodies to HIV-1, HIV-2, and p24 antigen by the [employer] IM CHIV assay. Performed By: #### 3 1201-7, 5195-3, 80989-1, SYPH #### [facility] CLIA [id number] [address] [place] [address] TREPONEMA PALLIDUM SCREENon 01-12-2023 T. pallidum IgG IF Ql (S) Non-Reactive Normal Nonreactive [facility] Comment on above: Order Comment: Speci men Type: BLOOD SPECIMEN [facility] Address: [address] [place] [address] Result Comment: Samp les with an index value of less than 0.90 are considered Nonreactive for Syphilis T. pallidum antibodies. Performed By: #### 3 1201-7, 5195-3, 77535-9, SYPH #### [facility] CLIA [id number] [address] [place] [address] [place] WET PREPon 01-12-2023 WET PREP WET PREP RESULT: No Trichomonads, No yeast observed Moderate Clue cells present Normal [facility] Comment on above: Performed By: #### L [id number] #### [facility] CLIA [id number] [address] [place] [address] [place] HEMOGLOBIN A1C (POC)on 08-16 HbA1c (Bld) [Mass fraction] 7.0 % Abnormal 4.2 - 5.6 % [facility] BMPon 02-01-2022 Anion gap [Moles/Vol] 7 mmol/L Normal 5-16 [facility] Comment on above: Order Comment: Campu s: M Performed By: #### L 500.57327, L500.66189, L500.08651 ####[facility] [id number] [place], [place] [address]Er# [phone] BUN/CREA TNP Normal 15-24 [facility] Comment on above: Order Comment: Campu s: M Performed By: #### L 500.07403, L500.02507, L500.70459 ####[facility] KDTROVSPCX8867 [place], [place] [address]Ma# [phone] Calcium [Mass/Vol] 8.4 mg/dL Low 8.5-10.5 [facility] Comment on above: Order Comment: Campu s: M Result Comment: NOTE NEW NORMAL RANGE DUE TO REAGENT CHANGE Performed By: #### L 500.46057, L500.57209, L500.91294 ####[facility] [id number] [place], [place] [address]Qj# [phone] Chloride [Moles/Vol] 112 mmol/L High 98-107 [facility] Comment on above: Order Comment: Campu s: M Performed By: #### L 500.76183, L500.49705, L500.33043 ####[facility] EDQPELMJJF7760 [place], [place] [address]Kd# [phone] CO2 [Moles/Vol] 24.0 mmol/L Normal 21-32 [facility] Comment on above: Order Comment: Campu s: M Performed By: #### L 500.66574, L500.97037, L500.46772 ####[facility] LHVRXHUQLP2904 [place], [place] [address]Wa# [phone] Creatinine [Mass/Vol] 0.64 mg/dL Normal 0.510-0.950 [facility] Comment on above: Order Comment: Campu s: M Result Comment: Cleopatra ents receiving either N-Acetylcysteine (NAC) orMetamizole prior to venipuncture, may have falsely depressedresults. Performed By: #### L 500.40248, L500.52077, L500.67839 ####[facility] PCJNWUXXMW4510 [place], [place] [address]Li# [phone] Glucose [Mass/Vol] 104 mg/dL High 70-100 [facility] Comment on above: Order Comment: Campu s: M Result Comment: 70-1 00- Normal Fasting; 100-125 Impaired Fasting; greaterthan 126 on more than one result- Diabetes. ADA guidelines.Results may be falsely elevated after the administration ofSulfapyridine.Results may be falsely depressed after the administration ofSulfasalazine. Performed By: #### L 500.63321, L500.52531, L500.89369 ####[facility] IKOYKHRUPV4624 [place], [place] [address]Sp# [phone] Potassium [Moles/Vol] 3.7 mmol/L Normal 3.5-5.1 [facility] Comment on above: Order Comment: Campu s: M Result Comment: Slig ht Hemolysis, Result may be affected. Performed By: #### L 500.31778, L500.79178, L500.14475 ####[facility] VNNXUUCZGM2462 [place], [place] [address]Xr# [phone] Sodium [Moles/Vol] 143 mmol/L Normal 136-145 [facility] Comment on above: Order Comment: Campu s: M Performed By: #### L 500.14686, L500.29989, L500.61837 ####[facility] IFTRVCBTMA2689 [place], [place] [address]Hp# [phone] Urea nitrogen [Mass/Vol] 5 mg/dL Low 7-26 [facility] Comment on above: Order Comment: Campu s: M Performed By: #### L 500.57466, L500.83386, L500.40889 ####[facility] OWMNXIONXP4798 [place], [place] [address]Gi# [phone] CBC W/DIFFon 02-01-2022 BASO ABS 0.10 K/CU MM Normal 0-0.2 [facility] Comment on above: Order Comment: Campu s: M Performed By: #### L 200.35272 ####[facility] ILXZPJEAPW[address] [place] [address]Od# [phone] Basophils/100 WBC (Bld) 0.6 % Normal 0-2 [facility] Comment on above: Order Comment: Campu s: M Performed By: #### L 200.80701 ####[address] [address]Pc# [phone] EOS ABS 0.10 K/CU MM Normal 0-0.5 [facility] Comment on above: Order Comment: Campu s: M Performed By: #### L 200.83703 ####[address] [address]Te# [phone] Eosinophils/100 WBC (Bld) 1.3 % Normal 0-5 [facility] Comment on above: Order Comment: Campu s: M Performed By: #### L 200.38400 ####[address] [address]Tn# [phone] Erythrocyte distribution width (RBC) [Ratio] 13.8 % Normal 11-14.5 [facility] Comment on above: Order Comment: Campu s: M Performed By: #### L 200.13040 ####[address] [address]Bi# [phone] Hematocrit (Bld) [Volume fraction] 36.9 % Normal 35.0-47.0 [facility] Comment on above: Order Comment: Campu s: M Performed By: #### L 200.69203 ####[facility] [address]KKUNFVX[address] [place] [address]Gb# [phone] Hemoglobin (Bld) [Mass/Vol] 12.3 g/dL Normal 11.5-15.5 [facility] Comment on above: Order Comment: Campu s: M Performed By: #### L 200.56427 ####[facility] PGOGGUZMCO5201 [place] [address]Ph# [phone] IMMATR GRAN ABS 0.20 K/CU MM Normal Less than 2 [facility] Comment on above: Order Comment: Campu s: M Performed By: #### L 200.00046 ####[place] [address]Ph# [phone] IMMATURE GRAN % 2.2 % Normal Less than 2 [facility] Comment on above: Order Comment: Campu s: M Performed By: #### L 200.08255 ####[place] [address]Ph# [phone] LYMPH ABS 3.70 K/CU MM Normal 0.9-4.4 [facility] Comment on above: Order Comment: Campu s: M Performed By: #### L 200.79713 ####[place] [address]Ph# [phone] Lymphocytes/100 WBC (Bld) 33.6 % Normal 20-40 [facility] Comment on above: Order Comment: Campu s: M Performed By: #### L 200.33354 ####[place] [address]Ph# [phone] MCHC (RBC) [Mass/Vol] 33.3 g/dL Normal 32.0-36.0 [facility] Comment on above: Order Comment: Campu s: M Performed By: #### L 200.79048 ####[facility] [id number] [place], [place] [address]Ph# [phone] MCV (RBC) [Entitic vol] 86.8 fL Normal 80.0-99.0 [facility] Comment on above: Order Comment: Campu s: M Performed By: #### L 200.24207 ####[facility] [id number] [place], [place] [address]Ph# [phone] MONO ABS 0.80 K/CU MM Normal 0.1-1.1 [facility] Comment on above: Order Comment: Campu s: M Performed By: #### L 200.96901 ####[facility] WYQFBWMTKV4607 [place], [place] [address]Cv# [phone] Monocytes/100 WBC (Bld) 7.3 % Normal 2-10 [facility] Comment on above: Order Comment: Campu s: M Performed By: #### L 200.86618 ####[facility] [id number] [place], [place] [address]Ph# [phone] NEUTROPHIL ABS 6.00 K/CU MM Normal 2.0-8.3 [facility] Comment on above: Order Comment: Campu s: M Performed By: #### L 200.33324 ####[facility] ARCMLAVJSN[address] [place], [place] [address]Ph# [phone] Neutrophils/100 WBC (Bld) 55.0 % Normal 45-75 [facility] Comment on above: Order Comment: Campu s: M Performed By: #### L 200.58130 ####[facility] CPJBRKKMCI25[address] [place], [place] [address]Ph# [phone] Nucleated RBC/100 WBC (Bld) [Ratio] 0.0 % Normal Less than 1 [facility] Comment on above: Order Comment: Campu s: M Performed By: #### L 200.49196 ####[facility] LTJINYMAUK032[address] [place], [place] [address]Ph# [phone] Platelet mean volume (Bld) [Entitic vol] 11.3 fL Normal 9.4-12.4 [facility] Comment on above: Order Comment: Campu s: M Performed By: #### L 200.52272 ####[facility] ESFJSTJGXF9112 [place], [place] [address]Wy# [phone] PLT 173 K/CU MM Normal 150-450 [facility] Comment on above: Order Comment: Campu s: M Performed By: #### L 200.16099 ####[facility] RRUDNWVCXN7311 [place], [place] [address]Bo# [phone] RBC 4.25 M/CU MM Normal 3.90-5.30 [facility] Comment on above: Order Comment: Campu s: M Performed By: #### L 200.75080 ####[facility] OHVTYXAMKB3480 [place], [place] [address]Ji# [phone] WBC 10.9 K/CUMM Normal 4.5-11.0 [facility] Comment on above: Order Comment: Campu s: M Performed By: #### L 200.16547 ####[facility] OUXYNEEVJS9383 [place], [place] [address]Ve# [phone] DISCH.SUMon 02-01-2022 DISCH.SUM Normal [facility] GFR ESTon 02-01-2022 IF AMER Greater than 60 Normal [facility] Comment on above: Order Comment: Campu s: M Performed By: #### L 500.77656, L500.08220, L500.74944 ####[facility] ISJWVRADRZ3753 [place], [place] [address]Eg# [phone] IF non-AFR AMER Greater than 60 Normal [facility] Comment on above: Order Comment: Campu s: M Performed By: #### L 500.83801, L500.70707, L500.36584 ####[facility] XKBTHVYNCJ7223 [place], [place] [address]Ll# [phone] GLUCOSE METERon 02-01-2022 Glucose [Mass/Vol] 291 mg/dL High 70-115 [facility] Glucose [Mass/Vol] 89 mg/dL Normal 70-115 [facility] MAGNESIUMon 02-01-2022 Magnesium [Mass/Vol] 2.0 mg/dL Normal 1.6-2.6 [facility] Comment on above: Order Comment: Campu s: M Performed By: #### L 500.88835, L500.72097, L500.97926 ####[facility] [id number] [place], [place] [address]Up# [phone] BMPon 01-31-2022 Anion gap [Moles/Vol] 12 mmol/L Normal 5-16 [facility] Comment on above: Order Comment: Campu s: M Performed By: #### L 500.29285, L500.43624, L500.91348 ####[facility] LABRTMIHJZ6372 [place], [place] [address]Gm# [phone] Calcium [Mass/Vol] 9.1 mg/dL Normal 8.5-10.5 [facility] Comment on above: Order Comment: Campu s: M Result Comment: NOTE NEW NORMAL RANGE DUE TO REAGENT CHANGE Performed By: #### L 500.64423, L500.10666, L500.74772 ####[facility] [id number] [place], [place] [address]Ue# [phone] Chloride [Moles/Vol] 106 mmol/L Normal 98-107 [facility] Comment on above: Order Comment: Campu s: M Performed By: #### L 500.84355, L500.43499, L500.28033 ####[facility] [address]WZXKXGOT[address] [place] [address]Uu# [phone] CO2 [Moles/Vol] 24.0 mmol/L Normal 21-32 [facility] Comment on above: Order Comment: Campu s: M Performed By: #### L 500.26744, L500.60527, L500.74915 ####[facility] [id number] [place] [address]Zb# [phone] Creatinine [Mass/Vol] 0.61 mg/dL Normal 0.510-0.950 [facility] Comment on above: Order Comment: Campu s: M Result Comment: Cleopatra ents receiving either N-Acetylcysteine (NAC) orMetamizole prior to venipuncture, may have falsely depressedresults. Performed By: #### L 500.79836, L500.85739, L500.51540 ####[facility] GFDYGTPAYN0491 [place], [place] [address]Ii# [phone] Glucose [Mass/Vol] 167 mg/dL High 70-100 [facility] Comment on above: Order Comment: Campu s: M Result Comment: Delt a check [id number]- Normal Fasting; 100-125 Impaired Fasting; greaterthan 126 on more than one result- Diabetes. ADA guidelines.Results may be falsely elevated after the administration ofSulfapyridine.Results may be falsely depressed after the administration ofSulfasalazine. Performed By: #### L 500.56387, L500.34638, L500.50518 ####[facility] [id number] [place], [place] [address]Jd# [phone] Potassium [Moles/Vol] 3.7 mmol/L Normal 3.5-5.1 [facility] Comment on above: Order Comment: Campu s: M Result Comment: Slig ht Hemolysis, Result may be affected. Performed By: #### L 500.69234, L500.32423, L500.25809 ####[facility] DNQMWQXOAZ2462 [place], [place] [address]Cs# [phone] Sodium [Moles/Vol] 142 mmol/L Normal 136-145 [facility] Comment on above: Order Comment: Campu s: M Performed By: #### L 500.17092, L500.98713, L500.29470 ####[facility] NOGANDMVWX3607 [place], [place] [address]Fr# [phone] Urea nitrogen [Mass/Vol] 7 mg/dL Normal 7-26 [facility] Comment on above: Order Comment: Campu s: M Performed By: #### L 500.40100, L500.56311, L500.65579 ####[facility] NUPXVQLBTS7448 [place], [place] [address]Bg# [phone] Urea nitrogen/Creatinine [Mass ratio] 11 mg/mg Low 15-24 [facility] Comment on above: Order Comment: Campu s: M Performed By: #### L 500.46785, L500.26055, L500.27966 ####[facility] XOVOTXEJAS[address] [place] [address]Wu# [phone] CBC W/DIFFon 01-31-2022 BASO ABS 0.10 K/CU MM Normal 0-0.2 [facility] Comment on above: Order Comment: Campu s: M Performed By: #### L 200.19835 ####[facility] GHJFAHLUSR[address] [place] [address]Zx# [phone] Basophils/100 WBC (Bld) 0.5 % Normal 0-2 [facility] Comment on above: Order Comment: Campu s: M Performed By: #### L 200.42314 ####[address] [address]Xi# [phone] EOS ABS 0.00 K/CU MM Normal 0-0.5 [facility] Comment on above: Order Comment: Campu s: M Performed By: #### L 200.14835 ####[address] [address]Ha# [phone] Eosinophils/100 WBC (Bld) 0.1 % Normal 0-5 [facility] Comment on above: Order Comment: Campu s: M Performed By: #### L 200.94795 ####[address] [address]Wz# [phone] Erythrocyte distribution width (RBC) [Ratio] 13.9 % Normal 11-14.5 [facility] Comment on above: Order Comment: Campu s: M Performed By: #### L 200.88929 ####[facility] UJMWMIJSCL[address] [place] [address]Yx# [phone] Hematocrit (Bld) [Volume fraction] 37.5 % Normal 35.0-47.0 [facility] Comment on above: Order Comment: Campu s: M Performed By: #### L 200.61977 ####[facility] CXSCQIUVSL6105[address] [place] [address]Mp# [phone] Hemoglobin (Bld) [Mass/Vol] 12.3 g/dL Normal 11.5-15.5 [facility] Comment on above: Order Comment: Campu s: M Performed By: #### L 200.58725 ####[facility] YTIUUWKNCJ1672 [place], [place] [address]Hi# [phone] IMMATR GRAN ABS 0.30 K/CU MM Normal Less than 2 [facility] Comment on above: Order Comment: Campu s: M Performed By: #### L 200.01370 ####[facility] VKTTKQZGRI[address] [place], [place] [address]Ph# [phone] IMMATURE GRAN % 1.9 % Normal Less than 2 [facility] Comment on above: Order Comment: Campu s: M Performed By: #### L 200.81396 ####[place] [address]Ph# [phone] LYMPH ABS 4.00 K/CU MM Normal 0.9-4.4 [facility] Comment on above: Order Comment: Campu s: M Performed By: #### L 200.74319 ####[facility] [address]DAHTGXVZZ[address] [place], [place] [address]Ph# [phone] Lymphocytes/100 WBC (Bld) 24.8 % Normal 20-40 [facility] Comment on above: Order Comment: Campu s: M Performed By: #### L 200.13251 ####[facility] HRFBVQCJZM[address] [place], [place] [address]Ph# [phone] MCHC (RBC) [Mass/Vol] 32.8 g/dL Normal 32.0-36.0 [facility] Comment on above: Order Comment: Campu s: M Performed By: #### L 200.11549 ####[facility] OFHVHVPVTO7[address] [place] [address]Gg# [phone] MCV (RBC) [Entitic vol] 87.6 fL Normal 80.0-99.0 [facility] Comment on above: Order Comment: Campu s: M Performed By: #### L 200.36840 ####[facility] EMNDBHHBDZ6124 [place], [place] [address]Zq# [phone] MONO ABS 1.00 K/CU MM Normal 0.1-1.1 [facility] Comment on above: Order Comment: Campu s: M Performed By: #### L 200.80594 ####[facility] EKPLSOELZE[address] [place] [address]Yx# [phone] Monocytes/100 WBC (Bld) 6.2 % Normal 2-10 [facility] Comment on above: Order Comment: Campu s: M Performed By: #### L 200.03708 ####[place] [address]Ph# [phone] NEUTROPHIL ABS 10.60 K/CU MM High 2.0-8.3 [facility] Comment on above: Order Comment: Campu s: M Performed By: #### L 200.45013 ####[facility] IIEDAKPSUL[address] [place] [address]Ak# [phone] Neutrophils/100 WBC (Bld) 66.5 % Normal 45-75 [facility] Comment on above: Order Comment: Campu s: M Performed By: #### L 200.48589 ####[facility] EZZYNALRPD[address] [place] [address]Cz# [phone] Nucleated RBC/100 WBC (Bld) [Ratio] 0.0 % Normal Less than 1 [facility] Comment on above: Order Comment: Campu s: M Performed By: #### L 200.96614 ####[facility] EMEZQTHWRE14[address] [place] [address]Mt# [phone] Platelet mean volume (Bld) [Entitic vol] 12.0 fL Normal 9.4-12.4 [facility] Comment on above: Order Comment: Campu s: M Performed By: #### L 200.60658 ####[facility] [id number] [place], [place] [address]Ph# [phone] PLT 183 K/CU MM Normal 150-450 [facility] Comment on above: Order Comment: Campu s: M Performed By: #### L 200.99856 ####[facility] [id number] [place], [place] [address]Qo# [phone] RBC 4.28 M/CU MM Normal 3.90-5.30 [facility] Comment on above: Order Comment: Campu s: M Performed By: #### L 200.90904 ####[facility] ZBNDOOSOVU[address] [place] [address]Al# [phone] WBC 16.0 K/CUMM High 4.5-11.0 [facility] Comment on above: Order Comment: Campu s: M Performed By: #### L 200.65540 ####[facility] [id number] [place] [address]Dh# [phone] GFR ESTon 01-31-2022 IF AMER Greater than [address] [facility] Comment on above: Order Comment: Campu s: M Performed By: #### L 500.82104, L500.87249, L500.25361 ####[facility] FIODIDPRGP1577 [place], [place] [address]Vq# [phone] IF non-AFR AMER Greater than [address] [facility] Comment on above: Order Comment: Campu s: M Performed By: #### L 500.91628, L500.86967, L500.96107 ####[facility] RBJHPIJVCJ0348 [place], [place] [address]Bm# [phone] GLUCOSE METERon 01-31-2022 Glucose [Mass/Vol] 233 mg/dL High 70-115 [facility] Glucose [Mass/Vol] 216 mg/dL High 70-115 [facility] Glucose [Mass/Vol] 171 mg/dL High 70-115 [facility] Glucose [Mass/Vol] 230 mg/dL High 70-115 [facility] Glucose [Mass/Vol] 284 mg/dL High 70-115 [facility] MAGNESIUMon 01-31-2022 Magnesium [Mass/Vol] 1.8 mg/dL Normal 1.6-2.6 [facility] Comment on above: Order Comment: Campu s: M Performed By: #### L 500.89572, L500.58967, L500.84394 ####[facility] LPSSQMVEAC1135 [place], [place] [address]Tm# [phone] PROG IMSon 01-31-2022 PROG IMS Normal [facility] Progress Note-Hospitalist Normal [facility] BMPon 01-30-2022 Anion gap [Moles/Vol] 8 mmol/L Normal 5-16 [facility] Comment on above: Order Comment: Campu s: M Performed By: #### L 500.38232, L500.37924 ####[facility] [id number] [place], [place] [address]Zc# [phone] Calcium [Mass/Vol] 8.7 mg/dL Normal 8.5-10.5 [facility] Comment on above: Order Comment: Campu s: M Result Comment: NOTE NEW NORMAL RANGE DUE TO REAGENT CHANGE Performed By: #### L 500.99846, L500.44944 ####[facility] KDQXUJZRBO9409 [place], [place] [address]Ip# [phone] Chloride [Moles/Vol] 114 mmol/L High 98-107 [facility] Comment on above: Order Comment: Campu s: M Performed By: #### L 500.38891, L500.50109 ####[facility] MOFEREDFZI0350 [place], [place] [address]Gh# [phone] CO2 [Moles/Vol] 22.0 mmol/L Normal 21-32 [facility] Comment on above: Order Comment: Campu s: M Performed By: #### L 500.29715, L500.16380 ####[facility] [id number] [place], [place] [address]Wf# [phone] Creatinine [Mass/Vol] 0.68 mg/dL Normal 0.510-0.950 [facility] Comment on above: Order Comment: Campu s: M Result Comment: Cleopatra ents receiving either N-Acetylcysteine (NAC) orMetamizole prior to venipuncture, may have falsely depressedresults. Performed By: #### L 500.97081, L500.60354 ####[facility] AUSDTLGJTK5283 [place], [place] [address]Ut# [phone] Glucose [Mass/Vol] 87 mg/dL Normal 70-100 [facility] Comment on above: Order Comment: Campu s: M Result Comment: 70-1 00- Normal Fasting; 100-125 Impaired Fasting; greaterthan 126 on more than one result- Diabetes. ADA guidelines.Results may be falsely elevated after the administration ofSulfapyridine.Results may be falsely depressed after the administration ofSulfasalazine. Performed By: #### L 500.61236, L500.86529 ####[facility] RORKYHZRQN6599 [place], [place] [address]He# [phone] Potassium [Moles/Vol] 3.2 mmol/L Low 3.5-5.1 [facility] Comment on above: Order Comment: Campu s: M Result Comment: Slig ht Hemolysis, Result may be affected. Performed By: #### L 500.85085, L500.10921 ####[facility] UUPYCCKZWE0607 [place], [place] [address]Me# [phone] Sodium [Moles/Vol] 144 mmol/L Normal 136-145 [facility] Comment on above: Order Comment: Campu s: M Performed By: #### L 500.86581, L500.07472 ####[facility] KRKAFYONAK7747 [place], [place] [address]Kb# [phone] Urea nitrogen [Mass/Vol] 14 mg/dL Normal 7-26 [facility] Comment on above: Order Comment: Campu s: M Performed By: #### L 500.73137, L500.60573 ####[facility] FEAHXOFCGM9960 [place], [place] [address]Wr# [phone] Urea nitrogen/Creatinine [Mass ratio] 20 mg/mg Normal 15-24 [facility] Comment on above: Order Comment: Campu s: M Performed By: #### L 500.79478, L500.82886 ####[facility] [id number] [place], [place] [address]Yt# [phone] Anion gap [Moles/Vol] 5 mmol/L Normal 5-16 [facility] [place] Comment on above: Order Comment: Campu s: M Performed By: #### L 500.43660, L500.57658 ####[facility] [id number] [place], [place] [address]Ih# [phone] Calcium [Mass/Vol] 9.0 mg/dL Normal 8.5-10.5 [facility] Comment on above: Order Comment: Campu s: M Result Comment: NOTE NEW NORMAL RANGE DUE TO REAGENT CHANGE Performed By: #### L 500.31946, L500.04445 ####[facility] [id number] [place], [place] [address]Kd# [phone] Chloride [Moles/Vol] 114 mmol/L High 98-107 [facility] Comment on above: Order Comment: Campu s: M Result Comment: Delt a check reviewed Performed By: #### L 500.19006, L500.68810 ####[facility] [id number] [place], [place] [address]Qc# [phone] CO2 [Moles/Vol] 22.0 mmol/L Normal 21-32 [facility] Comment on above: Order Comment: Campu s: M Result Comment: Delt a check reviewed Performed By: #### L 500.58020, L500.31410 ####[facility] [id number] [place], [place] [address]Cw# [phone] Creatinine [Mass/Vol] 0.74 mg/dL Normal 0.510-0.950 [facility] Comment on above: Order Comment: Campu s: M Result Comment: Cleopatra ents receiving either N-Acetylcysteine (NAC) orMetamizole prior to venipuncture, may have falsely depressedresults. Performed By: #### L 500.96629, L500.90029 ####[facility] [id number] [place], [place] [address]Mq# [phone] Glucose [Mass/Vol] 95 mg/dL Normal 70-100 [facility] [place] Comment on above: Order Comment: Campu s: M Result Comment: 70-1 00- Normal Fasting; 100-125 Impaired Fasting; greaterthan 126 on more than one result- Diabetes. ADA guidelines.Results may be falsely elevated after the administration ofSulfapyridine.Results may be falsely depressed after the administration ofSulfasalazine. Performed By: #### L 500.65744, L500.47776 ####[address] [address]Ae# [phone] Potassium [Moles/Vol] 3.6 mmol/L Normal 3.5-5.1 [facility] [place] Comment on above: Order Comment: Campu s: M Performed By: #### L 500.43054, L500.56973 ####[facility] [id number] [place] [address]Bj# [phone] Sodium [Moles/Vol] 141 mmol/L Normal 136-145 [facility] Comment on above: Order Comment: Campu s: M Performed By: #### L 500.16862, L500.98255 ####[facility] [id number] [place] [address]Kt# [phone] Urea nitrogen [Mass/Vol] 18 mg/dL Normal 7-26 [facility] Comment on above: Order Comment: Campu s: M Performed By: #### L 500.42293, L500.57403 ####[facility] [id number] [place] [address] 50[address]Vb# [phone] Urea nitrogen/Creatinine [Mass ratio] 24 mg/mg Normal 15-24 [facility] Comment on above: Order Comment: Campu s: M Performed By: #### L 500.74697, L500.24141 ####[facility] CRUIRTVNZQ6864 [place] [address]Ph# [phone] CBC W/DIFFon 01-30-2022 BASO ABS 0.00 K/CU MM Normal 0-0.2 [facility] [place] Comment on above: Order Comment: Campu s: MRN/MD Draw Performed By: #### L 200.61748 ####[facility] [id number] [place], [place] [address]Ph# [phone] Basophils/100 WBC (Bld) 0.2 % Normal 0-2 [facility] Comment on above: Order Comment: Campu s: MRN/MD Draw Performed By: #### L 200.20977 ####[facility] [id number] [place], [place] [address]Ph# [phone] EOS ABS 0.00 K/CU MM Normal 0-0.5 [facility] [place] Comment on above: Order Comment: Campu s: MRN/MD Draw Performed By: #### L 200.57217 ####[facility] [id number] [place], [place] [address]Ph# [phone] Eosinophils/100 WBC (Bld) 0.0 % Normal 0-5 [facility] Comment on above: Order Comment: Campu s: MRN/MD Draw Performed By: #### L 200.84291 ####[facility] [id number] [place] [address] 21358Qs# [phone] Erythrocyte distribution width (RBC) [Ratio] 14.3 % Normal 11-14.5 [facility] Comment on above: Order Comment: Campu s: MRN/MD Draw Performed By: #### L 200.99087 ####[facility] [id number] [place] [address]Rl# [phone] Hematocrit (Bld) [Volume fraction] 34.4 % Low 35.0-47.0 [facility] Comment on above: Order Comment: Campu s: MRN/MD Draw Performed By: #### L 200.99864 ####[facility] [id number] [place], [place] [address]Ph# [phone] Hemoglobin (Bld) [Mass/Vol] 11.3 g/dL Low 11.5-15.5 [facility] Comment on above: Order Comment: Benjiu s: MRN/MD Draw Performed By: #### L 200.13949 ####[facility] [id number] [place] [address]Ph# [phone] IMMATR GRAN ABS 0.20 K/CU MM Normal Less than 2 [facility] Comment on above: Order Comment: Benjiu s: MRN/MD Draw Performed By: #### L 200.70494 ####[facility] [id number] [place], [place] [address]Ph# [phone] IMMATURE GRAN % 0.8 % Normal Less than 2 [facility] Comment on above: Order Comment: Benjiu s: MRN/MD Draw Performed By: #### L 200.05314 ####[facility] [id number] [place], [place] [address]Ph# [phone] LYMPH ABS 2.20 K/CU MM Normal 0.9-4.4 [facility] Comment on above: Order Comment: Benjiu s: MRN/MD Draw Performed By: #### L 200.47244 ####[facility] IKEFEMHELE[address] [place], [place] [address]Ph# [phone] Lymphocytes/100 WBC (Bld) 9.0 % Low 20-40 [facility] Comment on above: Order Comment: Benjiu s: MRN/MD Draw Performed By: #### L 200.09967 ####[facility] [id number] [place], [place] [address]Ph# [phone] MCHC (RBC) [Mass/Vol] 32.8 g/dL Normal 32.0-36.0 [facility] Comment on above: Order Comment: Benjiu s: MRN/MD Draw Performed By: #### L 200.80275 ####[facility] [id number] [place], [place] [address]Ph# [phone] MCV (RBC) [Entitic vol] 88.0 fL Normal 80.0-99.0 [facility] Comment on above: Order Comment: Campu s: MRN/MD Draw Performed By: #### L 200.32667 ####[facility] [id number] [place], [place] [address]Lh# [phone] MONO ABS 1.60 K/CU MM High 0.1-1.1 [facility] Comment on above: Order Comment: Campu s: MRN/MD Draw Performed By: #### L 200.88144 ####[facility] [id number] [place], [place] [address]Zc# [phone] Monocytes/100 WBC (Bld) 6.5 % Normal 2-10 [facility] Comment on above: Order Comment: Campu s: MRN/MD Draw Performed By: #### L 200.30758 ####[facility] [id number] [place], [place] [address]Ph# [phone] NEUTROPHIL ABS 20.60 K/CU MM High 2.0-8.3 [facility] Comment on above: Order Comment: Campu s: MRN/MD Draw Performed By: #### L 200.67920 ####[facility] [id number] [place], [place] [address]La# [phone] Neutrophils/100 WBC (Bld) 83.5 % High 45-75 [facility] Comment on above: Order Comment: Campu s: MRN/MD Draw Performed By: #### L 200.17230 ####[facility] [id number] [place] [address] 313[address]Xm# [phone] Nucleated RBC/100 WBC (Bld) [Ratio] 0.0 % Normal Less than 1 [facility] Comment on above: Order Comment: Campu s: MRN/MD Draw Performed By: #### L 200.88886 ####[facility] [id number] [place], [place] [address]Mx# [phone] Platelet mean volume (Bld) [Entitic vol] 12.0 fL Normal 9.4-12.4 [facility] Comment on above: Order Comment: Campu s: MRN/MD Draw Performed By: #### L 200.27994 ####[facility] [id number] [place], [place] [address]Eh# [phone] PLT 198 K/CU MM Normal 150-450 [facility] Comment on above: Order Comment: Campu s: MRN/MD Draw Performed By: #### L 200.89404 ####[facility] [id number] [place], [place] [address]Lb# [phone] RBC 3.91 M/CU MM Normal 3.90-5.30 [facility] Comment on above: Order Comment: Campu s: MRN/MD Draw Performed By: #### L 200.71689 ####[facility] [id number] [place], [place] [address]Yi# [phone] WBC 24.7 K/CUMM High 4.5-11.0 [facility] Comment on above: Order Comment: Campu s: MRN/MD Draw Performed By: #### L 200.31519 ####[facility] [id number] [place] [address] 90[address]Ds# [phone] GFR ESTon 01-30-2022 IF AMER Greater than [address] [facility] [place] Comment on above: Order Comment: Campu s: M Performed By: #### L 500.63950, L500.87780 ####[facility] [id number] [place], [place] [address]Nl# [phone] IF non-AFR AMER Greater than [address] [facility] [place] Comment on above: Order Comment: Campu s: M Performed By: #### L 500.64597, L500.42342 ####[facility] MTGYZRRWQJ1751 [place], [place] [address]Fa# [phone] IF AMER Greater than [address] [facility] [place] Comment on above: Order Comment: Campu s: M Performed By: #### L 500.73708, L500.02827 ####[facility] IYZGPVKKZH0938 [place], [place] [address]Sw# [phone] IF non-AFR AMER Greater than [address] [facility] [place] Comment on above: Order Comment: Zach richter: M Performed By: #### L 500.62476, L500.27302 ####[facility] WWRKPCNLNR2362 [place], [place] [address]Wy# [phone] GLUCOSE METERon 01-30-2022 Glucose [Mass/Vol] 214 mg/dL High 70-115 [facility] Glucose [Mass/Vol] 219 mg/dL High 70-115 [facility] Glucose [Mass/Vol] 114 mg/dL Normal 70-115 [facility] Glucose [Mass/Vol] 125 mg/dL High 70-115 [facility] Glucose [Mass/Vol] 120 mg/dL High 70-115 [facility] Glucose [Mass/Vol] 86 mg/dL Normal 70-115 [facility] Glucose [Mass/Vol] 134 mg/dL High 70-115 [facility] Glucose [Mass/Vol] 105 mg/dL Normal 70-115 [facility] Glucose [Mass/Vol] 94 mg/dL Normal 70-115 [facility] Glucose [Mass/Vol] 189 mg/dL High 70-115 [facility] Glucose [Mass/Vol] 122 mg/dL High 70-115 [facility] Glucose [Mass/Vol] 188 mg/dL High 70-115 [facility] Glucose [Mass/Vol] 206 mg/dL High 70-115 [facility] MAGNESIUMon 01-30-2022 Magnesium [Mass/Vol] 1.9 mg/dL Normal 1.6-2.6 [facility] Comment on above: Order Comment: Zach richter: RUBÉN/ Draw Performed By: #### L 500.78383, L500.99438 ####[facility] [id number] [place], [place] [address]Rn# [phone] PHOSon 01-30-2022 Phosphate [Mass/Vol] 2.20 mg/dL Low 2.5-4.9 [facility] Comment on above: Order Comment: Zach s: RUBÉN/ Draw Result Comment: Elev ated m-protein (paraprotein) levels in the serum may beexhibited in patients with monoclonal gammopathies, causingfalsely elevated inorganic phosphorus results. Performed By: #### L 500.99225, L500.78004 ####[facility] [id number] [place], [place] [address]Vb# [phone] PROG IMSon 01-30-2022 PROG IMS Normal [facility] Progress Note-Hospitalist Normal [facility] PROG.INTENon 01-30-2022 PROG.INTEN Normal [facility] Progress Note-Intellectual Property Legal Assistant Normal [facility] BETA-HYDRO BUTon 01-29-2022 BETA-HYDRO BUT 3.92 MMOL/L High 0.02-0.27 [facility] Comment on above: Order Comment: Zach s: M Result Comment: Bloo d ketone levels will vary depending on several factors(for example, food intake, alcohol intake and conditionssuch as ketoacidosis). Patients should be fasting 12 hoursprior to collection.PATIENT SAMPLES WITH HIGH LEVELS OF M-PROTEIN (I.E.GAMMOPATHY) MAY AFFECT THE ACCURACY OF THIS ASSAY. Performed By: #### L 500.12656 ####[facility] [id number] [place], [place] [address]Gk# [phone] BMPon 01-29-2022 Anion gap [Moles/Vol] 18 mmol/L High 5-16 [facility] Comment on above: Order Comment: Zach s: M Performed By: #### L 500.89430, L500.82765, L500.85779, L500.36791, L500.96640 ####[facility] [id number] [place], [place] [address]Re# [phone] Calcium [Mass/Vol] 9.9 mg/dL Normal 8.5-10.5 [facility] Comment on above: Order Comment: Benjiu s: M Result Comment: NOTE NEW NORMAL RANGE DUE TO REAGENT CHANGE Performed By: #### L 500.05145, L500.99258, L500.01375, L500.36470, L500.86072 ####[facility] [id number] [place], [place] [address]Ko# [phone] Chloride [Moles/Vol] 103 mmol/L Normal 98-107 [facility] Comment on above: Order Comment: Zach s: M Performed By: #### L 500.09431, L500.18569, L500.18105, L500.91959, L500.06258 ####[facility] EIIVEZWWVM9217 [place], [place] [address]Wd# [phone] CO2 [Moles/Vol] 15.0 mmol/L Low 21-32 [facility] Comment on above: Order Comment: Zach s: M Performed By: #### L 500.39881, L500.58259, L500.04906, L500.75136, L500.19688 ####[facility] OYGRPEETDU4281 [place], [place] [address]Gp# [phone] Creatinine [Mass/Vol] 0.71 mg/dL Normal 0.510-0.950 [facility] Comment on above: Order Comment: Zach s: M Result Comment: Cleopatra ents receiving either N-Acetylcysteine (NAC) orMetamizole prior to venipuncture, may have falsely depressedresults. Performed By: #### L 500.90508, L500.08382, L500.29873, L500.47311, L500.52225 ####[facility] [id number] [place], [place] [address]Ak# [phone] Glucose [Mass/Vol] 412 mg/dL High 70-100 [facility] Comment on above: Order Comment: Zach s: M Result Comment: 70-1 00- Normal Fasting; 100-125 Impaired Fasting; greaterthan 126 on more than one result- Diabetes. ADA guidelines.Results may be falsely elevated after the administration ofSulfapyridine.Results may be falsely depressed after the administration ofSulfasalazine. Performed By: #### L 500.96242, L500.07067, L500.67181, L500.65433, L500.02421 ####[facility] [id number] [place], [place] [address]Hw# [phone] Potassium [Moles/Vol] 4.2 mmol/L Normal 3.5-5.1 [facility] [place] Comment on above: Order Comment: Campu s: M Performed By: #### L 500.72341, L500.21471, L500.93185, L500.94273, L500.07390 ####[facility] RSEYUTDJBD4768 [place], [place] [address]Tu# [phone] Sodium [Moles/Vol] 136 mmol/L Normal 136-145 [facility] Comment on above: Order Comment: Campu s: M Performed By: #### L 500.82154, L500.55253, L500.92275, L500.10791, L500.39151 ####[facility] XMJRIGKGWT2056 [place], [place] [address]Tu# [phone] Urea nitrogen [Mass/Vol] 23 mg/dL Normal 7-26 [facility] Comment on above: Order Comment: Campu s: M Performed By: #### L 500.65660, L500.64254, L500.41154, L500.10724, L500.86936 ####[facility] JCKKQIXYUK8427 [place], [place] [address]Sf# [phone] Urea nitrogen/Creatinine [Mass ratio] 32 mg/mg High 15-24 [facility] Comment on above: Order Comment: Campu s: M Performed By: #### L 500.35133, L500.28788, L500.69226, L500.92906, L500.13332 ####[facility] YIBODZWEXX2502 [place], [place] [address]Jb# [phone] CBC W/DIFFon 01-29-2022 BASO ABS 0.00 K/CU MM Normal 0-0.2 [facility] Comment on above: Order Comment: Campu s: M Performed By: #### L 200.88771 ####[facility] [id number] [place], [place] [address]Ab# [phone] Basophils/100 WBC (Bld) 0.1 % Normal 0-2 [facility] Comment on above: Order Comment: Campu s: M Performed By: #### L 200.93752 ####[facility] [id number] [place] [address]Fq# [phone] EOS ABS 0.00 K/CU MM Normal 0-0.5 [facility] Comment on above: Order Comment: Campu s: M Performed By: #### L 200.01015 ####[place] [address]Ph# [phone] Eosinophils/100 WBC (Bld) 0.1 % Normal 0-5 [facility] Comment on above: Order Comment: Campu s: M Performed By: #### L 200.96168 ####[facility] [id number] [place], [place] [address]Ph# [phone] Erythrocyte distribution width (RBC) [Ratio] 13.6 % Normal 11-14.5 [facility] Comment on above: Order Comment: Campu s: M Performed By: #### L 200.26947 ####[address] [address]Os# [phone] Hematocrit (Bld) [Volume fraction] 38.7 % Normal 35.0-47.0 [facility] Comment on above: Order Comment: Campu s: M Performed By: #### L 200.94099 ####[facility] [id number] [place] [address]Ra# [phone] Hemoglobin (Bld) [Mass/Vol] 12.6 g/dL Normal 11.5-15.5 [facility] Comment on above: Order Comment: Campu s: M Performed By: #### L 200.32957 ####[facility] [id number] [place], [place] [address]Ph# [phone] IMMATR GRAN ABS 0.10 K/CU MM Normal Less than 2 [facility] Comment on above: Order Comment: Benjiu s: M Performed By: #### L 200.01541 ####[facility] XYBVMDEYOZ2540 [place] [address]Ph# [phone] IMMATURE GRAN % 0.8 % Normal Less than 2 [facility] Comment on above: Order Comment: Campu s: M Performed By: #### L 200.58676 ####[place] [address]Ph# [phone] LYMPH ABS 0.80 K/CU MM Low 0.9-4.4 [facility] Comment on above: Order Comment: Benjiu s: M Performed By: #### L 200.04333 ####[place] [address]Ph# [phone] Lymphocytes/100 WBC (Bld) 4.4 % Low 20-40 [facility] Comment on above: Order Comment: Campu s: M Performed By: #### L 200.94103 ####[facility] [id number] [place], [place] [address]Ph# [phone] MCHC (RBC) [Mass/Vol] 32.6 g/dL Normal 32.0-36.0 [facility] Comment on above: Order Comment: Campu s: M Performed By: #### L 200.65677 ####[facility] [id number] [place], [place] [address]Ph# [phone] MCV (RBC) [Entitic vol] 86.4 fL Normal 80.0-99.0 [facility] Comment on above: Order Comment: Campu s: M Performed By: #### L 200.87001 ####[facility] [id number] [place], [place] [address]Ph# [phone] MONO ABS 0.30 K/CU MM Normal 0.1-1.1 [facility] Comment on above: Order Comment: Campu s: M Performed By: #### L 200.85417 ####[facility] [id number] [place], [place] [address]Go# [phone] Monocytes/100 WBC (Bld) 1.7 % Low 2-10 [facility] Comment on above: Order Comment: Campu s: M Performed By: #### L 200.59871 ####[facility] [id number] [place] [address]Ph# [phone] NC/NC NORMOCYTIC Normal [facility] Comment on above: Order Comment: Campu s: M Performed By: #### L 200.22919 ####[facility] [id number] [place], [place] [address]Ph# [phone] NEUTROPHIL ABS 17.00 K/CU MM High 2.0-8.3 [facility] Comment on above: Order Comment: Campu s: M Performed By: #### L 200.11626 ####[facility] [id number] [place], [place] [address]Ph# [phone] Neutrophils/100 WBC (Bld) 92.9 % High 45-75 [facility] Comment on above: Order Comment: Campu s: M Performed By: #### L 200.26266 ####[facility] [id number] [place] [address]Pp# [phone] Nucleated RBC/100 WBC (Bld) [Ratio] 0.0 % Normal Less than 1 [facility] Comment on above: Order Comment: Campu s: M Performed By: #### L 200.66203 ####[facility] [id number] [place], [place] [address]Ph# [phone] Platelet mean volume (Bld) [Entitic vol] 13.5 fL High 9.4-12.4 [facility] Comment on above: Order Comment: Campu s: M Performed By: #### L 200.08566 ####[facility] [id number] [place], [place] [address]Ph# [phone] PLT 174 K/CU MM Normal 150-450 [facility] Comment on above: Order Comment: Campu s: M Performed By: #### L 200.00659 ####[facility] [id number] [place], [place] [address]Dv# [phone] PLT EST [facility] Comment on above: Order Comment: Campu s: M Performed By: #### L 200.78199 ####[facility] [id number] [place], [place] [address]Vi# [phone] RBC 4.48 M/CU MM Normal 3.90-5.30 [facility] Comment on above: Order Comment: Campu s: M Performed By: #### L 200.30502 ####[facility] [id number] [place], [place] [address]Nz# [phone] WBC 18.3 K/CUMM High 4.5-11.0 [facility] Comment on above: Order Comment: Campu s: M Performed By: #### L 200.34559 ####[facility] [id number] [place] [address]Nl# [phone] CONS.INTENon 01-29-2022 CONS.INTEN [facility] Consultation-Intensivi st [facility] Stacie 01-29-2022 EMERGENCY PHYSICIAN REPORT This is a preliminary report only, as the practitioner review and authentication has not occurred. [facility] ER [facility] GFR ESTon 01-29-2022 IF AMER Greater than 60 [facility] Comment on above: Order Comment: Campu s: M Performed By: #### L 500.91527, L500.27100, L500.60095, L500.87314, L500.24079 ####[facility] [id number] [place], [place] [address]Pi# [phone] IF non-AFR AMER Greater than 60 [facility] Comment on above: Order Comment: Campu s: M Performed By: #### L 500.49238, L500.51454, L500.85965, L500.79735, L500.78420 ####[facility] EPORVYTEKJ9803 [place], [place] [address]Rz# [phone] GLUCOSE METERon 01-29-2022 Glucose [Mass/Vol] 135 mg/dL High 70-115 [facility] [place] Glucose [Mass/Vol] 146 mg/dL High 70-115 [facility] Glucose [Mass/Vol] 141 mg/dL High 70-115 [facility] Glucose [Mass/Vol] 117 mg/dL High 70-115 [facility] Glucose [Mass/Vol] 151 mg/dL High 70-115 [facility] Glucose [Mass/Vol] 221 mg/dL High 70-115 [facility] Glucose [Mass/Vol] 286 mg/dL High 70-115 [facility] Glucose [Mass/Vol] 382 mg/dL High 70-115 [facility] Glucose [Mass/Vol] 402 mg/dL High 70-115 [facility] HCGon 01-29-2022 HCG SER RESULT Negative Normal NEGATIVE [facility] Comment on above: Order Comment: Campu s: M Performed By: #### L 500.19676, L500.21579, L500.93868, L500.48172, L500.30259 ####[facility] [id number] [place], [place] [address]Ag# [phone] HP.IMS.ADMon 01-29-2022 Admission-H&P Normal [facility] HP.IMS.ADM [facility] LIPASE[facility] 01-29-2022 Lipase [Catalytic activity/Vol] 22 U/L Normal 12-60 [facility] Comment on above: Order Comment: Campu s: M Result Comment: NOTE NEW NORMAL RANGE DUE TO REAGENT CHANGE Performed By: #### L 500.79160, L500.26352, L500.99359, L500.78234, L500.28396 ####[facility] RJKCVGPFHA2700 [place], [place] [address]Oe# [phone] LIVERon 01-29-2022 Albumin [Mass/Vol] 4.5 g/dL Normal 3.2-5.0 [facility] Comment on above: Order Comment: Campu s: M Performed By: #### L 500.25393, L500.32336, L500.16973, L500.96479, L500.39407 ####[facility] [id number] [place], [place] [address]Yv# [phone] Albumin/Globulin [Mass ratio] 1.7 {ratio} Normal 0.8-2.0 [facility] Comment on above: Order Comment: Campu s: M Performed By: #### L 500.22589, L500.92488, L500.52899, L500.73329, L500.20099 ####[facility] [id number] [place], [place] [address]Ur# [phone] ALK PHOS 104 U/L Normal 45-117 [facility] Comment on above: Order Comment: Campu s: M Performed By: #### L 500.71868, L500.71365, L500.87709, L500.19893, L500.49270 ####[facility] [id number] [place], [place] [address]Xc# [phone] ALT [Catalytic activity/Vol] 28 U/L Normal 13-61 [facility] Comment on above: Order Comment: Campu s: M Result Comment: RESU LTS MAY BE FALSELY DEPRESSED AFTER THE ADMINISTRATION OFSULFASALAZINE AND/OR SULFAPYRIDINE. Performed By: #### L 500.84168, L500.34682, L500.61037, L500.45804, L500.96560 ####[facility] [id number] [place], [place] [address]Mc# [phone] AST [Catalytic activity/Vol] 24 U/L Normal 8-34 [facility] Comment on above: Order Comment: Campu s: M Result Comment: RESU LTS MAY BE FALSELY DEPRESSED AFTER THE ADMINISTRATION OFSULFASALAZINE AND/OR SULFAPYRIDINE. Performed By: #### L 500.25137, L500.47704, L500.26657, L500.70680, L500.42182 ####[facility] [id number] [place], [place] [address]Dh# [phone] BILI DIRECT 0.3 MG/DL Normal 0.00-0.36 [facility] Comment [facility] above: Order Comment: Campu s: M Result Comment: NOTE NEW NORMAL RANGE DUE TO REAGENT CHANGE Performed By: #### L 500.29699, L500.42504, L500.70783, L500.98146, L500.28517 ####[facility] OZAVRMNKIB9775 [place], [place] [address]Ys# [phone] BILI TOTAL 0.90 MG/DL Normal 0.2-1.0 [facility] Comment on above: Order Comment: Campu s: M Performed By: #### L 500.76824, L500.15278, L500.53172, L500.76096, L500.01878 ####[facility] WHAVRPABYZ0405 [place], [place] [address]Ux# [phone] Globulin (S) [Mass/Vol] 2.7 g/dL [facility] 2.2-4.2 [facility] Comment [facility] above: Order Comment: Campu s: M Performed By: #### L 500.76700, L500.65545, L500.43029, L500.63686, L500.07036 ####[facility] YSDDPSWYJL7326 [place], [place] [address]Zb# [phone] Protein [Mass/Vol] 7.2 g/dL Normal 6.0-8.5 [facility] [place] Comment on above: Order Comment: Campu s: M Performed By: #### L 500.38523, L500.29818, L500.25502, L500.85449, L500.08387 ####[facility] EKOYCEOCVV4029 [place], [place] [address]Zs# [phone] MRSA PCRon 01-29-2022 MRSA PCR Negative Normal NEGATIVE [facility] Comment on above: Order Comment: Campu s: M Result Comment: PLEA SE NOTE: TESTING DONE BY PCR TECHNOLOGY.The SA Nasal complete MRSA assay on the Mango DSP GeneXperthas not been validated for use on patients under 21 years ofage. All patients under 21 years of age, run on theGeneXpert will be confirmed by a Blood Pearson plate, followedby an SHINE, to confirm MRSA. Performed By: #### L 770.68187 ####[facility] [id number] [place], [place] [address]Xt# [phone] SA PCR Positive High NEGATIVE [facility] Comment on above: Order Comment: Campu s: M Result Comment: PLEA SE NOTE: TESTING DONE BY PCR TECHNOLOGY. Performed By: #### L 770.39557 ####[address] [address]Pl# [phone] PORTABLE CHESTon 01-29-2022 PORTABLE CHEST Normal [facility] [id number] 01-29-2022 SARS-CoV-2 (COVID-19) RNA DANIEL+probe Ql (Unsp spec) Negative Invalid Interpretation Code Negative [facility] Comment on above: Order Comment: Campu s: M Result Comment: RESU LTS CALLED TO AND READ BACK BY MARY MCKEON 1039 01/29/22 BY ELIDA ROJASNegative results do not preclude SARS-CoV-2 infection andshould not be used as the sole basis for treatment or otherpatient management decisions. Negative results must becombined with clinical observation, patient history, andepidemiological information.This test was performed by PCR. Performed By: #### L 770.18149 ####[facility] MICHWCKPCK7361 [place], [place] [address]Wa# [phone] UA COMPLETEon 01-29-2022 Color (U) Straw Normal [facility] Comment on above: Order Comment: Benjiu s: M Performed By: #### L 600.74694 ####[facility] [id number] [place], [place] [address]Ve# [phone] Glucose (U) [Mass/Vol] 500 mg/dL Normal [facility]AL [facility] Comment [facility] above: Order Comment: Campu s: M Performed By: #### L 600.53226 ####[facility] [id number] [place], [place] [address]Qp# [phone] UA APPEARANCE Clear Normal CLEAR [facility] Comment on above: Order Comment: Campu s: M Performed By: #### L 600.08791 ####[facility] [id number] [place] [address]Nt# [phone] UA BILIRUBIN Negative Normal NEGATIVE [facility] Comment on above: Order Comment: Campu s: M Performed By: #### L 600.98800 ####[facility] [id number] [place] [address]Qz# [phone] UA BLOOD Negative Normal NEGATIVE [facility] Comment on above: Order Comment: Campu s: M Performed By: #### L 600.92956 ####[address] [address]Zy# [phone] UA KETONE 80 Normal NEGATIVE [facility] Comment on above: Order Comment: Campu s: M Performed By: #### L 600.26125 ####[facility] [id number] [place] [address]Gs# [phone] UA LK ESTERASE Negative Normal NEGATIVE [facility] Comment on above: Order Comment: Campu s: M Performed By: #### L 600.63425 ####[facility] YHBEVOPDYL[address] [place] [address]Iu# [phone] UA NITRITE Negative Normal NEGATIVE [facility] Comment on above: Order Comment: Campu s: M Performed By: #### L 600.52775 ####[facility] RITZXHOTNO[address] [place] [address]Xc# [phone] UA PH 6.0 Normal 5-6 [facility] Comment on above: Order Comment: Campu s: M Performed By: #### L 600.74485 ####[facility] NMNRJBEFYR[address] [place] [address]Nb# [phone] UA PROTEIN Negative Normal NEGATIVE [facility] Comment on above: Order Comment: Campu s: M Performed By: #### L 600.63050 ####[facility] IXXUYVRSET5573 [place], [place] [address]Cm# [phone] UA SPEC GRAV 1.028 Normal 1.005-1.030 [facility] Comment on above: Order Comment: Campu s: M Performed By: #### L 600.55758 ####[facility] XFVOEMRWOO[address] [place] [address]Iu# [phone] UA UROBILINOGEN Negative Normal NORMAL [facility] Comment on above: Order Comment: Campu s: M Performed By: #### L 600.04082 ####[facility] STFXOSKGLZ5615 [place], [place] [address]Xl# [phone] VBG PHon 01-29-2022 VBG PH 7.36 MMHG Normal 7.31-7.41 [facility] Comment on above: Order Comment: Campu s: M Performed By: #### L 100.72032 ####[facility] CJLXIBLJCU[address] [place] [address]Ez# [phone] BMPon 12-30-2021 Anion gap [Moles/Vol] 4 mmol/L Low 5-16 [facility] Comment on above: Order Comment: Campu s: M Performed By: #### L 500.58145, L500.24356 ####[facility] WRFLKVZSHQ5732 [place], [place] [address]Op# [phone] Calcium [Mass/Vol] 8.8 mg/dL Normal 8.5-10.5 [facility] Comment on above: Order Comment: Campu s: M Result Comment: NOTE NEW NORMAL RANGE DUE TO REAGENT CHANGE Performed By: #### L 500.10910, L500.64011 ####[facility] HNEWJJXTIZ5097 [place], [place] [address]Qu# [phone] Chloride [Moles/Vol] 109 mmol/L High 98-107 [facility] Comment on above: Order Comment: Campu s: M Performed By: #### L 500.04129, L5.26981 ####[facility] QRGUCLGJHC2718 [place], [place] [address]Xf# [phone] CO2 [Moles/Vol] 28.0 mmol/L Normal 21-32 [facility] Comment on above: Order Comment: Benjiu s: M Performed By: #### L 500.13118, L5.75478 ####[facility] SPZGDDKPIE8228 [place], [place] [address]Yg# [phone] Creatinine [Mass/Vol] 0.64 mg/dL Normal 0.510-0.950 [facility] Comment on above: Order Comment: Benjiu s: M Result Comment: Cleopatra ents receiving either N-Acetylcysteine (NAC) orMetamizole prior to venipuncture, may have falsely depressedresults. Performed By: #### L 500.56132, .27180 ####[facility] HRXXJSBFWW1157 [place], [place] [address]Bo# [phone] Glucose [Mass/Vol] 160 mg/dL High 70-100 [facility] Comment on above: Order Comment: Benjiu s: M Result Comment: Delt a check gblofiaz50-051- Normal Fasting; 100-125 Impaired Fasting; greaterthan 126 on more than one result- Diabetes. ADA guidelines.Results may be falsely elevated after the administration ofSulfapyridine.Results may be falsely depressed after the administration ofSulfasalazine. Performed By: #### L 500.30535, L5.03115 ####[facility] YMLHOLZQKD5636 [place], [place] [address]Pq# [phone] Potassium [Moles/Vol] 3.8 mmol/L Normal 3.5-5.1 [facility] Comment on above: Order Comment: Benjiu s: M Performed By: #### L 500.29748, L5.56981 ####[facility] XBOKQOQGPT4458 [place], [place] [address]Oa# [phone] Sodium [Moles/Vol] 141 mmol/L Normal 136-145 [facility] Comment on above: Order Comment: Campu s: M Performed By: #### L 500.69064, L500.44409 ####[facility] DRRBWGOFFX7688 [place], [place] [address]At# [phone] Urea nitrogen [Mass/Vol] 9 mg/dL Normal 7-26 [facility] Comment on above: Order Comment: Campu s: M Performed By: #### L 500.25780, L500.87208 ####[facility] [id number] [place], [place] [address]Xp# [phone] Urea nitrogen/Creatinine [Mass ratio] 14 mg/mg Low 15-24 [facility] Comment on above: Order Comment: Campu s: M Performed By: #### L 500.98007, L500.85460 ####[facility] HFBNPHAXLW4409 [place], [place] [address]Wr# [phone] DISCH.SUMon 12-30-2021 DISCH.SUM Normal [facility] GFR ESTon 12-30-2021 IF AMER Greater than 60 Normal [facility] Comment on above: Order Comment: Campu s: M Performed By: #### L 500.11692, L500.89687 ####[facility] [id number] [place], [place] [address]Yu# [phone] IF non-AFR AMER Greater than 60 Normal [facility] Comment on above: Order Comment: Campu s: M Performed By: #### L 500.46280, L500.27479 ####[facility] BMPECWLFZE[address] [place] [address]Dg# [phone] GLUCOSE METERon 12-30-2021 Glucose [Mass/Vol] 141 mg/dL High 70-115 [facility] Glucose [Mass/Vol] 184 mg/dL High 70-115 [facility] Glucose [Mass/Vol] 269 mg/dL High 70-115 [facility] HGB A1C GLYCOHBon 12-30-2021 HbA1c (Bld) [Mass fraction] 6.2 % High 4.3-6.0 [facility] Comment on above: Order Comment: Campu s: M Performed By: #### L 550.09929 ####[facility] [id number] [place], [place] [address]Rb# [phone] BMPon 12-29-2021 Anion gap [Moles/Vol] 7 mmol/L Normal 5-16 [facility] Comment on above: Order Comment: Campu s: M Performed By: #### L 500.85973, L500.25970 ####[facility] HSWPCFXVBO8262 [place], [place] [address]Cq# [phone] Calcium [Mass/Vol] 7.1 mg/dL Low 8.5-10.5 [facility] Comment on above: Order Comment: Campu s: M Result Comment: NOTE NEW NORMAL RANGE DUE TO REAGENT CHANGE Performed By: #### L 500.51693, L500.15957 ####[facility] SUMSNCMYNX9708 [place], [place] [address]Ef# [phone] Chloride [Moles/Vol] 114 mmol/L High 98-107 [facility] Comment on above: Order Comment: Campu s: M Performed By: #### L 500.40384, L500.33525 ####[facility] RFEAEVCVUW7849 [place], [place] [address]Tv# [phone] CO2 [Moles/Vol] 22.0 mmol/L Normal 21-32 [facility] Comment on above: Order Comment: Campu s: M Performed By: #### L 500.63471, L500.57592 ####[facility] BIQSALOZWF3671 [place], [place] [address]Xq# [phone] Creatinine [Mass/Vol] 0.52 mg/dL Normal 0.510-0.950 [facility] Comment on above: Order Comment: Campu s: M Result Comment: Cleopatra ents receiving either N-Acetylcysteine (NAC) orMetamizole prior to venipuncture, may have falsely depressedresults. Performed By: #### L 500.52835, L500.77807 ####[facility] UGMFEZYNUS9573 [place], [place] [address]Ms# [phone] Glucose [Mass/Vol] 94 mg/dL Normal 70-100 [facility] Comment on above: Order Comment: Campu s: M Result Comment: 70-1 00- Normal Fasting; 100-125 Impaired Fasting; greaterthan 126 on more than one result- Diabetes. ADA guidelines.Results may be falsely elevated after the administration ofSulfapyridine.Results may be falsely depressed after the administration ofSulfasalazine. Performed By: #### L 500.46275, L500.66475 ####[facility] PVAWRZPZXS9125 [place], [place] [address]Gt# [phone] Potassium [Moles/Vol] 3.2 mmol/L Low 3.5-5.1 [facility] Comment on above: Order Comment: Campu s: M Result Comment: Slig ht Hemolysis, Result may be affected. Performed By: #### L 500.56208, L500.91638 ####[facility] [id number] [place] [address]Wj# [phone] Sodium [Moles/Vol] 143 mmol/L Normal 136-145 [facility] Comment on above: Order Comment: Campu s: M Result Comment: Delt a check reviewed Performed By: #### L 500.50118, L500.72346 ####[facility] [id number] [place] [address]Ol# [phone] Urea nitrogen [Mass/Vol] 6 mg/dL Low 7-26 [facility] Comment on above: Order Comment: Campu s: M Performed By: #### L 500.91138, L500.67562 ####[facility] EAXGBMWCFF96[address] [place] [address]Hj# [phone] Urea nitrogen/Creatinine [Mass ratio] 11 mg/mg Low 15-24 [facility] Comment on above: Order Comment: Campu s: M Performed By: #### L 500.90025, L500.00356 ####[facility] PLKBZHKBNW2935 [place], [place] [address]Aj# [phone] CBC W/DIFFon 12-29-2021 BASO ABS 0.00 K/CU MM Normal 0-0.2 [facility] [place] Comment on above: Order Comment: Campu s: M Performed By: #### L 200.91581 ####[facility] [id number] [place] [address]Ci# [phone] Basophils/100 WBC (Bld) 0.3 % Normal 0-2 [facility] Comment on above: Order Comment: Campu s: M Performed By: #### L 200.14671 ####[place] [address]Ph# [phone] EOS ABS 0.00 K/CU MM Normal 0-0.5 [facility] Comment on above: Order Comment: Campu s: M Performed By: #### L 200.43606 ####[place] [address]Ph# [phone] Eosinophils/100 WBC (Bld) 0.2 % Normal 0-5 [facility] Comment on above: Order Comment: Campu s: M Performed By: #### L 200.88594 ####[address] [address]Ap# [phone] Erythrocyte distribution width (RBC) [Ratio] 13.5 % Normal 11-14.5 [facility] Comment on above: Order Comment: Campu s: M Performed By: #### L 200.81336 ####[facility] [id number] [place] [address]Op# [phone] Hematocrit (Bld) [Volume fraction] 34.3 % Low 35.0-47.0 [facility] Comment on above: Order Comment: Campu s: M Performed By: #### L 200.36087 ####[address] [address]Em# [phone] Hemoglobin (Bld) [Mass/Vol] 11.5 g/dL Normal 11.5-15.5 [facility] Comment on above: Order Comment: Campu s: M Performed By: #### L 200.66636 ####[facility] FFTCAOCZUO5446 [place] [address]Ph# [phone] IMMATR GRAN ABS 0.20 K/CU MM Normal Less than 2 [facility] Comment on above: Order Comment: Campu s: M Performed By: #### L 200.27047 ####[place] [address]Ph# [phone] IMMATURE GRAN % 1.8 % Normal Less than 2 [facility] Comment on above: Order Comment: Campu s: M Performed By: #### L 200.09335 ####[place] [address]Ph# [phone] LYMPH ABS 3.60 K/CU MM Normal 0.9-4.4 [facility] Comment on above: Order Comment: Campu s: M Performed By: #### L 200.84981 ####[place] [address]Ph# [phone] Lymphocytes/100 WBC (Bld) 29.4 % Normal 20-40 [facility] Comment on above: Order Comment: Campu s: M Performed By: #### L 200.38745 ####[facility] GDYXCDHOHK[address] [place], [place] [address]Ph# [phone] MCHC (RBC) [Mass/Vol] 33.5 g/dL Normal 32.0-36.0 [facility] Comment on above: Order Comment: Campu s: M Performed By: #### L 200.87474 ####[facility] VDDJUVYAXS[address] [place] [address]Zf# [phone] MCV (RBC) [Entitic vol] 86.2 fL Normal 80.0-99.0 [facility] Comment on above: Order Comment: Campu s: M Performed By: #### L 200.08383 ####[facility] [id number] [place], [place] [address]Db# [phone] MONO ABS 0.80 K/CU MM Normal 0.1-1.1 [facility] Comment on above: Order Comment: Campu s: M Performed By: #### L 200.12197 ####[facility] KJQNLSOYYY6441 [place], [place] [address]Vw# [phone] Monocytes/100 WBC (Bld) 6.7 % Normal 2-10 [facility] Comment on above: Order Comment: Campu s: M Performed By: #### L 200.65427 ####[place] [address]Ph# [phone] NEUTROPHIL ABS 7.60 K/CU MM Normal 2.0-8.3 [facility] Comment on above: Order Comment: Campu s: M Performed By: #### L 200.28521 ####[facility] [id number] [place], [place] [address]Ph# [phone] Neutrophils/100 WBC (Bld) 61.6 % Normal 45-75 [facility] Comment on above: Order Comment: Campu s: M Performed By: #### L 200.93514 ####[facility] [id number] [place], [place] [address]Ph# [phone] Nucleated RBC/100 WBC (Bld) [Ratio] 0.0 % Normal Less than 1 [facility] Comment on above: Order Comment: Campu s: M Performed By: #### L 200.41651 ####[facility] [id number] [place] [address]Ne# [phone] Platelet mean volume (Bld) [Entitic vol] 11.7 fL Normal 9.4-12.4 [facility] Comment on above: Order Comment: Campu s: M Performed By: #### L 200.69312 ####[facility] JICTCPIEYK[address] [place], [place] [address]Ph# [phone] PLT 167 K/CU MM Normal 150-450 [facility] Comment on above: Order Comment: Campu s: M Performed By: #### L 200.52581 ####[facility] YACZYTOOVX3765 [place], [place] [address]Xj# [phone] RBC 3.98 M/CU MM Normal 3.90-5.30 [facility] Comment on above: Order Comment: Campu s: M Performed By: #### L 200.26151 ####[facility] WAQMKWLBWC8267 [place], [place] [address]Fc# [phone] WBC 12.4 K/CUMM High 4.5-11.0 [facility] Comment on above: Order Comment: Campu s: M Performed By: #### L 200.47676 ####[facility] ANSRVTDHFB7121 [place], [place] [address]Mf# [phone] GFR ESTon 12-29-2021 IF AMER Greater than [address] [facility] Comment on above: Order Comment: Campu s: M Performed By: #### L 500.72989, L500.76466 ####[facility] [id number] [place], [place] [address]Kp# [phone] IF non-AFR AMER Greater than 60 Normal [facility] Comment on above: Order Comment: Campu s: M Performed By: #### L 500.39287, L500.40521 ####[facility] [id number] [place] [address]Lv# [phone] GLUCOSE METERon 12-29-2021 Glucose [Mass/Vol] 266 mg/dL High 70-115 [facility] Glucose [Mass/Vol] 109 mg/dL Normal 70-115 [facility] Glucose [Mass/Vol] 67 mg/dL Low 70-115 [facility] Glucose [Mass/Vol] 49 mg/dL Critically low 70-115 [facility] Glucose [Mass/Vol] 63 mg/dL Low 70-115 [facility] Glucose [Mass/Vol] 98 mg/dL Normal 70-115 [facility] PROG IMSon 12-29-2021 PROG IMS Normal [facility] Progress Note-Hospitalist Normal [facility] ADM.INTERVon 12-28-2021 ADM.INTERV Normal [facility] Admission Interval Note Normal [facility] BETA-HYDRO BUTon 12-28-2021 BETA-HYDRO BUT 4.79 MMOL/L High 0.02-0.27 [facility] Comment on above: Order Comment: Campu s: M Result Comment: Bloo d ketone levels will vary depending on several factors(for example, food intake, alcohol intake and conditionssuch as ketoacidosis). Patients should be fasting 12 hoursprior to collection.PATIENT SAMPLES WITH HIGH LEVELS OF M-PROTEIN (I.E.GAMMOPATHY) MAY AFFECT THE ACCURACY OF THIS ASSAY. Performed By: #### L 500.33135, L500.05780, L500.92292 ####[facility] MUCUZGQBSI0733 [place], [place] [address]Wp# [phone] [facility] [place] Anion gap [Moles/Vol] 13 mmol/L Normal 5-16 [facility] Comment on above: Order Comment: Campu s: M Performed By: #### L 500.22724, L500.77542, L500.41704 ####[facility] TGESCVJUKU7935 [place], [place] [address]Vv# [phone] Calcium [Mass/Vol] 8.9 mg/dL Normal 8.5-10.5 [facility] Comment on above: Order Comment: Campu s: M Result Comment: NOTE NEW NORMAL RANGE DUE TO REAGENT CHANGE Performed By: #### L 500.14040, L500.89084, L500.53395 ####[facility] [id number] [place], [place] [address]Mq# [phone] Chloride [Moles/Vol] 105 mmol/L Normal 98-107 [facility] Comment on above: Order Comment: Campu s: M Performed By: #### L 500.92436, L500.73886, L500.65856 ####[facility] RNLOTCSIPP6233 [place], [place] [address]Ph# [phone] CO2 [Moles/Vol] 18.0 mmol/L Low 21-32 [facility] Comment on above: Order Comment: Zach richter: M Performed By: #### L 500.86307, L500.67000, L500.98487 ####[facility] LDJTOVDXCT2478 [place], [place] [address]Zd# [phone] Creatinine [Mass/Vol] 0.61 mg/dL Normal 0.510-0.950 [facility] Comment on above: Order Comment: Zach s: M Result Comment: Cleopatra ents receiving either N-Acetylcysteine (NAC) orMetamizole prior to venipuncture, may have falsely depressedresults. Performed By: #### L 500.11142, L500.97625, L500.50919 ####[facility] EKUOSIHBID9392 [place], [place] [address]Jg# [phone] Glucose [Mass/Vol] 80 mg/dL Normal 70-100 [facility] Comment on above: Order Comment: Zach s: M Result Comment: 70-1 00- Normal Fasting; 100-125 Impaired Fasting; greaterthan 126 on more than one result- Diabetes. ADA guidelines.Results may be falsely elevated after the administration ofSulfapyridine.Results may be falsely depressed after the administration ofSulfasalazine. Performed By: #### L 500.58548, L500.77699, L500.35421 ####[facility] FBJJBGXHVX5239 [place], [place] [address]Ps# [phone] Potassium [Moles/Vol] 2.9 mmol/L Critically low 3.5-5.1 [facility] Comment on above: Order Comment: Zach s: M Result Comment: Slig ht Hemolysis, Result may be affected.Critical Result(s)Called at: 19:38:48 on 12/28/2021 by lls. Called to vinh back by: DR MORLEY Performed By: #### L 500.81176, L500.83225, L500.92992 ####[facility] CGAYPLDHQV6405 [place], [place] [address]Wk# [phone] Sodium [Moles/Vol] 136 mmol/L Normal 136-145 [facility] Comment on above: Order Comment: Campu s: M Performed By: #### L 500.94494, L500.37946, L500.26731 ####[facility] [id number] [place], [place] [address]Su# [phone] Urea nitrogen [Mass/Vol] 11 mg/dL Normal 7-26 [facility] Comment on above: Order Comment: Campu s: M Performed By: #### L 500.14813, L500.77936, L500.50118 ####[facility] [id number] [place], [place] [address]Xv# [phone] Urea nitrogen/Creatinine [Mass ratio] 18 mg/mg Normal 15-24 [facility] Comment on above: Order Comment: Campu s: M Performed By: #### L 500.42734, L500.31996, L500.42838 ####[facility] [id number] [place], [place] [address]Rv# [phone] Stacie 12-28-2021 EMERGENCY PHYSICIAN REPORT This is a preliminary report only, as the practitioner review and authentication has not occurred. Normal [facility] IF AMER Greater than 60 Normal [facility] Comment on above: Order Comment: Campu s: M Performed By: #### L 500.78758, L500.27611, L500.46037 ####[facility] [id number] [place], [place] [address]Uc# [phone] IF non-AFR AMER Greater than 60 [facility] Comment on above: Order Comment: Campu s: M Performed By: #### L 500.47159, L500.49086, L500.49298 ####[facility] [id number] [place], [place] [address]Kl# [phone] VBG PANELon 12-28-2021 BASE EXCESS -4.6 MMOL/L Low 0-2 [facility] Comment on above: Order Comment: Campu s: M Performed By: #### L 100.99642 ####[facility] [id number] [place], [place] [address]Jd# [phone] Body temperature 98.6 [degF] Normal [facility] Comment on above: Order Comment: Campu s: M Performed By: #### L 100.47164 ####[facility] [id number] [place] [address] 12374Sn# [phone] EQUIPMENT UNKNOWN Normal [facility] Comment on above: Order Comment: Campu s: M Performed By: #### L 100.46178 ####[facility] [id number] [place] [address] 51572Rh# [phone] HCO3 (Bld) [Moles/Vol] 17.6 mmol/L Low 22-26 M [facility] Comment on above: Order Comment: Campu s: M Performed By: #### L 100.33826 ####[facility] [id number] [place] [address] 05655Xy# [phone] Hemoglobin (Bld) [Mass/Vol] 13.9 g/dL Low 16.0-22.0 [facility] Comment on above: Order Comment: Campu s: M Performed By: #### L 100.71754 ####[facility] [address] [place] [address] 11423Lz# [phone] SAMPLE SITE UNKNOWN Normal [facility] Comment on above: Order Comment: Campu s: M Performed By: #### L 100.55712 ####[facility] SEBWOEGERL[address] [place] [address] 52520Du# [phone] SAMPLE TYPE VENOUS Normal [facility] Comment on above: Order Comment: Campu s: M Performed By: #### L 100.04683 ####[facility] [id number] [place] [address] 03046Uk# [phone] VBG CARBOXYHGB 1.5 % Normal 0-10 [facility] Comment on above: Order Comment: Campu s: M Performed By: #### L 100.87910 ####[facility] RMLHUNDVRB9311 [place], [place] [address]Lm# [phone] VBG METHGB 0.3 % Low 0.4-1.5 [facility] Comment on above: Order Comment: Campu s: M Performed By: #### L 100.99113 ####[facility] BPROXICZZR1080 [place], [place] [address]Vp# [phone] VBG O2 CAPACITY 19.0 VOL% Normal [facility] Comment on above: Order Comment: Campu s: M Performed By: #### L 100.80139 ####[address] [place], [place] [address]Og# [phone] VBG O2 HG SATUR 88.4 % High 40-70 [facility] Comment on above: Order Comment: Campu s: M Performed By: #### L 100.93939 ####[facility] XLATOUSDJO2178 [place], [place] [address]Eo# [phone] VBG PCO2 25.6 MMHG Critically low 40-50 [facility] Comment on above: Order Comment: Campu s: M Result Comment: VALU E IS OUTSIDE OF THE VERIFIED RANGES OF THIS ANALYZER.ADAM CHOE PCO2 25.6 MMHG Performed By: #### L 100.93371 ####[facility] CRKXISNFYK7508 [place], [place] [address]Ov# [phone] VBG PH 7.46 MMHG High 7.31-7.41 [facility] Comment on above: Order Comment: Campu s: M Performed By: #### L 100.71975 ####[facility] PYVHWWDNAK5909 [place], [place] [address]Gv# [phone] VBG PO2 54.3 MMHG High 35-45 [facility] Comment on above: Order Comment: Campu s: M Performed By: #### L 100.00137 ####[facility] KBNGNJILEX1573 [place], [place] [address]Ir# [phone] BETA-HYDRO BUTon 12-27-2021 BETA-HYDRO BUT 3.29 MMOL/L High 0.02-0.27 [facility] Comment on above: Order Comment: Campu s: M Result Comment: Bloo d ketone levels will vary depending on several factors(for example, food intake, alcohol intake and conditionssuch as ketoacidosis). Patients should be fasting 12 hoursprior to collection.PATIENT SAMPLES WITH HIGH LEVELS OF M-PROTEIN (I.E.GAMMOPATHY) MAY AFFECT THE ACCURACY OF THIS ASSAY. Performed By: #### L 500.99046 ####[facility] LLVJABUEEL9110 [place], [place] [address]Zu# [phone] BMPon 12-27-2021 Anion gap [Moles/Vol] 15 mmol/L Normal 5-16 [facility] Comment on above: Order Comment: Campu s: M Performed By: #### L 500.27420, L500.62603, L500.08494 ####[facility] CRVDFINVLP2820 [place], [place] [address]Ic# [phone] Calcium [Mass/Vol] 9.2 mg/dL Normal 8.5-10.5 [facility] Comment on above: Order Comment: Campu s: M Result Comment: NOTE NEW NORMAL RANGE DUE TO REAGENT CHANGE Performed By: #### L 500.18796, L500.03194, L500.04440 ####[facility] BOLPIAPTNI1276 [place], [place] [address]Dx# [phone] Chloride [Moles/Vol] 107 mmol/L Normal 98-107 [facility] Comment on above: Order Comment: Campu s: M Performed By: #### L 500.21394, L500.24451, L500.71584 ####[facility] DHLFYPMDYL6602 [place], [place] [address]Oh# [phone] CO2 [Moles/Vol] 18.0 mmol/L Low 21-32 [facility] Comment on above: Order Comment: Campu s: M Performed By: #### L 500.05263, L500.87636, L500.25668 ####[facility] XFVTDWQNNH5156 [place], [place] [address]Dr# [phone] Creatinine [Mass/Vol] 0.67 mg/dL Normal 0.510-0.950 [facility] Comment on above: Order Comment: Campu s: M Result Comment: Cleopatra ents receiving either N-Acetylcysteine (NAC) orMetamizole prior to venipuncture, may have falsely depressedresults. Performed By: #### L 500.75790, L500.95883, L500.86947 ####[facility] [id number] [place], [place] [address]Xo# [phone] Glucose [Mass/Vol] 118 mg/dL High 70-100 [facility] Comment on above: Order Comment: Campu s: M Result Comment: 70-1 00- Normal Fasting; 100-125 Impaired Fasting; greaterthan 126 on more than one result- Diabetes. ADA guidelines.Results may be falsely elevated after the administration ofSulfapyridine.Results may be falsely depressed after the administration ofSulfasalazine. Performed By: #### L 500.22626, L500.18169, L500.11625 ####[facility] PSWTXIFQPW0854 [place], [place] [address]Hl# [phone] Potassium [Moles/Vol] 3.3 mmol/L Low 3.5-5.1 [facility] Comment on above: Order Comment: Campu s: M Performed By: #### L 500.45038, L500.15882, L500.32504 ####[facility] KPEWPEOIMP6613 [place], [place] [address]Fn# [phone] Sodium [Moles/Vol] 140 mmol/L Normal 136-145 [facility] Comment on above: Order Comment: Campu s: M Performed By: #### L 500.53801, L500.38923, L500.89544 ####[facility] ITYZRBLMWE3976 [place], [place] [address]Cy# [phone] Urea nitrogen [Mass/Vol] 14 mg/dL Normal 7-26 [facility] Comment on above: Order Comment: Campu s: M Performed By: #### L 500.65838, L500.79219, L500.22241 ####[facility] RLIFJBEIEI0965 [place], [place] [address]Gg# [phone] Urea nitrogen/Creatinine [Mass ratio] 21 mg/mg Normal 15-24 [facility] Comment on above: Order Comment: Campu s: M Performed By: #### L 500.17166, L500.77239, L500.45801 ####[address] [place], [place] [address]Um# [phone] CBC W/DIFFon 12-27-2021 BASO ABS 0.00 K/CU MM Normal 0-0.2 [facility] Comment on above: Order Comment: Campu s: M Performed By: #### L 200.75174 ####[address] [address]Ff# [phone] Basophils/100 WBC (Bld) 0.3 % Normal 0-2 [facility] Comment on above: Order Comment: Campu s: M Performed By: #### L 200.24671 ####[facility] [address]KEXSHVS[address] [place] [address] 12[address]Uv# [phone] EOS ABS 0.00 K/CU MM Normal 0-0.5 [facility] Comment on above: Order Comment: Campu s: M Performed By: #### L 200.35494 ####[facility] YSRGKEVFRL[address] [place] [address] 72[address]Bb# [phone] Eosinophils/100 WBC (Bld) 0.0 % Normal 0-5 [facility] Comment on above: Order Comment: Campu s: M Performed By: #### L 200.51988 ####[facility] KEOTNWJRYV8823[address] [place] [address]Px# [phone] Erythrocyte distribution width (RBC) [Ratio] 13.8 % Normal 11-14.5 [facility] Comment on above: Order Comment: Campu s: M Performed By: #### L 200.09983 ####[facility] [id number] [place] [address] 75[address]Qg# [phone] Hematocrit (Bld) [Volume fraction] 36.4 % Normal 35.0-47.0 [facility] Comment on above: Order Comment: Campu s: M Performed By: #### L 200.81333 ####[address] [address]Ph# [phone] Hemoglobin (Bld) [Mass/Vol] 12.1 g/dL Normal 11.5-15.5 [facility] Comment on above: Order Comment: Campu s: M Performed By: #### L 200.78838 ####[place] [address]Ph# [phone] IMMATR GRAN ABS 0.30 K/CU MM Normal Less than 2 [facility] Comment on above: Order Comment: Campu s: M Performed By: #### L 200.74627 ####[place] [address]Ph# [phone] IMMATURE GRAN % 1.8 % Normal Less than 2 [facility] Comment on above: Order Comment: Campu s: M Performed By: #### L 200.17626 ####[facility] LUVUWMEPCH[address] [place], [place] [address]Ph# [phone] LYMPH ABS 1.30 K/CU MM Normal 0.9-4.4 [facility] Comment on above: Order Comment: Campu s: M Performed By: #### L 200.73430 ####[facility] BUZLPHZOEW[address] [place], [place] [address]Ph# [phone] Lymphocytes/100 WBC (Bld) 9.4 % Low 20-40 [facility] Comment on above: Order Comment: Campu s: M Performed By: #### L 200.99704 ####[facility] HVTWGVZNCI9966 [place], [place] [address]Ph# [phone] MCHC (RBC) [Mass/Vol] 33.2 g/dL Normal 32.0-36.0 [facility] Comment on above: Order Comment: Campu s: M Performed By: #### L 200.84974 ####[facility] [address]XARZVZYV[address] [place] [address] 27[address]Sk# [phone] MCV (RBC) [Entitic vol] 85.4 fL Normal 80.0-99.0 [facility] Comment on above: Order Comment: Campu s: M Performed By: #### L 200.50491 ####[address] [address]Nh# [phone] MONO ABS 0.60 K/CU MM Normal 0.1-1.1 [facility] Comment on above: Order Comment: Campu s: M Performed By: #### L 200.34834 ####[address] [address]Us# [phone] Monocytes/100 WBC (Bld) 4.1 % Normal 2-10 [facility] Comment on above: Order Comment: Campu s: M Performed By: #### L 200.19900 ####[address] [address]Hp# [phone] NEUTROPHIL ABS 11.70 K/CU MM High 2.0-8.3 [facility] Comment on above: Order Comment: Campu s: M Performed By: #### L 200.54993 ####[facility] [id number] [place] [address]Wm# [phone] Neutrophils/100 WBC (Bld) 84.4 % High 45-75 [facility] Comment on above: Order Comment: Campu s: M Performed By: #### L 200.50084 ####[facility] DQSIJJWSGI[address] [place] [address]Cv# [phone] Nucleated RBC/100 WBC (Bld) [Ratio] 0.0 % Normal Less than 1 [facility] Comment on above: Order Comment: Campu s: M Performed By: #### L 200.93260 ####[facility] MJTVFOOGZG3215 [place], [place] [address]Hq# [phone] Platelet mean volume (Bld) [Entitic vol] 12.1 fL Normal 9.4-12.4 [facility] Comment on above: Order Comment: Campu s: M Performed By: #### L 200.98469 ####[facility] RUVKOQNROD1020 [place], [place] [address]Sr# [phone] PLT 184 K/CU MM Normal 150-450 [facility] Comment on above: Order Comment: Campu s: M Performed By: #### L 200.89194 ####[facility] [id number] [place], [place] [address]Ol# [phone] RBC 4.26 M/CU MM Normal 3.90-5.30 [facility] Comment on above: Order Comment: Campu s: M Performed By: #### L 200.82502 ####[facility] KUWBDOOGVI6542 [place], [place] [address]Lm# [phone] WBC 13.9 K/CUMM High 4.5-11.0 [facility] Comment on above: Order Comment: Campu s: M Performed By: #### L 200.08438 ####[facility] [address]SW[address] [place] [address]Lu# [phone] Stacie 12-27-2021 EMERGENCY PHYSICIAN REPORT This is a preliminary report only, as the practitioner review and authentication has not occurred. Normal [facility] ER Normal [facility] GFR ESTon 12-27-2021 IF AMER Greater than 60 Normal [facility] Comment on above: Order Comment: Campu s: M Performed By: #### L 500.58687, L500.93129, L500.97544 ####[facility] KRXNOPMZBA7278 [place], [place] [address]Zj# [phone] IF non-AFR AMER Greater than [address] [facility] Comment on above: Order Comment: Campu s: M Performed By: #### L 500.21024, L500.78863, L500.78586 ####[facility] MYSYAXHWWX4617 [place], [place] [address]Vt# [phone] HCGon 12-27-2021 HCG SER RESULT Negative Normal NEGATIVE [facility] Comment on above: Order Comment: Campu s: M Performed By: #### L 500.91525, L500.76590, L500.64387 ####[facility] MQUNAWZUQB8013 [place], [place] [address]Yj# [phone] LACTATE BLOODon 12-27-2021 LACTATE BLOOD 2.43 MMOL/L High 0.40-2.00 [facility] Comment on above: Order Comment: Campu s: M Performed By: #### L 550.06028 ####[facility] PLSUYVYKAQ[address] [place] [address]En# [phone] LIPASEon 12-27-2021 Lipase [Catalytic activity/Vol] 25 U/L Normal 12-60 [facility] Comment on above: Order Comment: Campu s: M Result Comment: NOTE NEW NORMAL RANGE DUE TO REAGENT CHANGE Performed By: #### L 500.53358, L500.48395 ####[facility] FAGQZPAWEY[address] [place] [address]Kv# [phone] LIVERon 12-27-2021 Albumin [Mass/Vol] 4.2 g/dL Normal 3.2-5.0 [facility] Comment on above: Order Comment: Campu s: M Performed By: #### L 500.21397, L500.68778 ####[facility] MBWHHETMRK7440 [place], [place] [address]Dm# [phone] Albumin/Globulin [Mass ratio] 1.7 {ratio} Normal 0.8-2.0 [facility] Comment on above: Order Comment: Campu s: M Performed By: #### L 500.52441, L500.45566 ####[facility] ZYEJDPLHSM8430 [place], [place] [address]Hr# [phone] ALK PHOS 87 U/L Normal 45-117 [facility] Comment on above: Order Comment: Campu s: M Performed By: #### L 500.37645, L500.62254 ####[facility] PNUKXAROVW9895 [place], [place] [address]Mh# [phone] ALT [Catalytic activity/Vol] 13 U/L Normal 13-61 [facility] Comment on above: Order Comment: Campu s: M Result Comment: RESU LTS MAY BE FALSELY DEPRESSED AFTER THE ADMINISTRATION OFSULFASALAZINE AND/OR SULFAPYRIDINE. Performed By: #### L 500.89051, L500.89398 ####[address] [place], [place] [address]Zz# [phone] AST [Catalytic activity/Vol] 23 U/L Normal 8-34 [facility] Comment on above: Order Comment: Campu s: M Result Comment: RESU LTS MAY BE FALSELY DEPRESSED AFTER THE ADMINISTRATION OFSULFASALAZINE AND/OR SULFAPYRIDINE. Performed By: #### L 500.82340, L500.29133 ####[facility] PFSAUYCAPQ2380 [place], [place] [address]Kf# [phone] BILI DIRECT 0.3 MG/DL Normal 0.00-0.36 [facility] Comment on above: Order Comment: Campu s: M Result Comment: NOTE NEW NORMAL RANGE DUE TO REAGENT CHANGE Performed By: #### L 500.17847, L500.98790 ####[facility] NDBZPAQKPU8682 [place], [place] [address]Nw# [phone] BILI TOTAL 0.90 MG/DL Normal 0.2-1.0 [facility] Comment on above: Order Comment: Campu s: M Performed By: #### L 500.10756, L500.32698 ####[facility] QLQOHQHNNR8506 [place], [place] [address]Ye# [phone] Globulin (S) [Mass/Vol] 2.5 g/dL Normal 2.2-4.2 [facility] Comment on above: Order Comment: Campu s: M Performed By: #### L 500.20771, L500.38357 ####[facility] [id number] [place], [place] [address]Ee# [phone] Protein [Mass/Vol] 6.7 g/dL Normal 6.0-8.5 [facility] Comment on above: Order Comment: Campu s: M Performed By: #### L 500.38202, L500.21079 ####[facility] TWAAJVHUMJ2699 [place], [place] [address]Yr# [phone] [id number] 12-27-2021 SARS-CoV-2 (COVID-19) RNA DANIEL+probe Ql (Unsp spec) Negative Invalid Interpretation Code Negative [facility] Comment on above: Order Comment: [...] performed by PCR. Performed By: #### L 770.92547 ####[facility] AKSVSHZPBP6953 [place], [place] [address]Bp# [phone] UA COMPLETEon 12-27-2021 Color (U) Yellow Normal [facility] Comment on above: Order Comment: Campu s: M Performed By: #### L 600.20621 ####[facility] [id number] [place], [place] [address]Yo# [phone] Glucose (U) [Mass/Vol] Negative Normal NORMAL [facility] Comment on above: Order Comment: Campu s: M Performed By: #### L 600.13630 ####[facility] [id number] [place], [place] [address]Mu# [phone] UA APPEARANCE Clear Normal CLEAR [facility] Comment on above: Order Comment: Campu s: M Performed By: #### L 600.28679 ####[facility] KXYOAQYTPQ[address] [place] [address]Ql# [phone] UA BILIRUBIN Negative Normal NEGATIVE [facility] Comment on above: Order Comment: Campu s: M Performed By: #### L 600.49036 ####[facility] DKUWNTIOQI27[address] [place] [address] 13[address]Be# [phone] UA BLOOD Negative Normal NEGATIVE [facility] Comment on above: Order Comment: Campu s: M Performed By: #### L 600.10075 ####[address] [address]Ee# [phone] UA KETONE 80 Normal NEGATIVE [facility] Comment on above: Order Comment: Campu s: M Performed By: #### L 600.79616 ####[facility] GDCVFKYBQP[address] [place] [address]Hn# [phone] UA LK ESTERASE Negative Normal NEGATIVE [facility] Comment on above: Order Comment: Campu s: M Performed By: #### L 600.65021 ####[address] [address]Yo# [phone] UA NITRITE Negative Normal NEGATIVE [facility] Comment on above: Order Comment: Campu s: M Performed By: #### L 600.20881 ####[facility] VMVBXNPSPO2[address] [place] [address]Xy# [phone] UA PH 6.0 Normal 5-6 [facility] Comment on above: Order Comment: Campu s: M Performed By: #### L 600.71226 ####[facility] [id number] [place] [address]Bw# [phone] UA PROTEIN Negative Normal NEGATIVE [facility] Comment on above: Order Comment: Campu s: M Performed By: #### L 600.87838 ####[facility] [address]ZOGVWKWLC[address] [place] [address], [place] [address]Qu# [phone] UA SPEC GRAV 1.018 Normal 1.005-1.030 [facility] Comment on above: Order Comment: Campu s: M Performed By: #### L 600.27296 ####[facility] DRYZRTYHJF5814 [place], [place] [address]Gx# [phone] UA UROBILINOGEN 2.0 Normal NORMAL [facility] Comment on above: Order Comment: Campu s: M Performed By: #### L 600.69399 ####[facility] KGRNMTYFAS[address] [place] [address]Lp# [phone] VBG PHon 12-27-2021 VBG PH 7.57 MMHG High 7.31-7.41 [facility] Comment on above: Order Comment: Campu s: M Performed By: #### L 100.08846 ####[facility] [id number] [place] [address]Mr# [phone] Stacie 12-26-2021 EMERGENCY PHYSICIAN REPORT This is a preliminary report only, as the practitioner review and authentication has not occurred. Normal [facility] ER Normal [facility] GLUCOSE METERon 12-26-2021 Glucose [Mass/Vol] 246 mg/dL High 70-115 [facility] Glucose [Mass/Vol] 311 mg/dL High 70-115 [facility] PROG.NOTEon 12-26-2021 PROG.NOTE Normal [facility] Progress Note-Physician Normal [facility] A[facility] OR KUBon 12-25-2021 ABDOMEN OR KUB Normal [facility] BETA-HYDRO BUTon 12-25-2021 BETA-HYDRO BUT 2.49 MMOL/L High 0.02-0.27 [facility] Comment on above: Order Comment: Campu s: M Result Comment: Bloo d ketone levels will vary depending on several factors(for example, food intake, alcohol intake and conditionssuch as ketoacidosis). Patients should be fasting 12 hoursprior to collection.PATIENT SAMPLES WITH HIGH LEVELS OF M-PROTEIN (I.E.GAMMOPATHY) MAY AFFECT THE ACCURACY OF THIS ASSAY. Performed By: #### L 500.94434 ####[facility] [id number] [place], [place] [address]Of# [phone] BMPon 12-25-2021 Anion gap [Moles/Vol] 13 mmol/L Normal 5-16 [facility] Comment on above: Order Comment: Campu s: M Performed By: #### L 500.67942, L500.79519, L500.67422, L500.51684, L500.75510 ####[facility] [id number] [place], [place] [address]Cr# [phone] Calcium [Mass/Vol] 10.0 mg/dL Normal 8.5-10.5 [facility] Comment on above: Order Comment: Campu s: M Result Comment: NOTE NEW NORMAL RANGE DUE TO REAGENT CHANGE Performed By: #### L 500.30685, L500.66211, L500.17741, L500.66302, L500.37094 ####[facility] JUMTQCJEIQ6286 [place], [place] [address]Jc# [phone] Chloride [Moles/Vol] 107 mmol/L Normal 98-107 [facility] Comment on above: Order Comment: Campu s: M Performed By: #### L 500.15857, L500.19530, L500.70825, L500.18040, L500.08336 ####[facility] [id number] [place], [place] [address]Nf# [phone] CO2 [Moles/Vol] 17.0 mmol/L Low 21-32 [facility] Comment on above: Order Comment: Campu s: M Performed By: #### L 500.30191, L500.92696, L500.74558, L500.33676, L500.12254 ####[facility] KCQLNCRYVB7862 [place], [place] [address]Pq# [phone] Creatinine [Mass/Vol] 0.66 mg/dL Normal 0.510-0.950 [facility] Comment on above: Order Comment: Campu s: M Result Comment: Cleopatra ents receiving either N-Acetylcysteine (NAC) orMetamizole prior to venipuncture, may have falsely depressedresults. Performed By: #### L 500.32105, L500.69290, L500.83136, L500.97027, L500.29184 ####[facility] [id number] [place], [place] [address]Ok# [phone] Glucose [Mass/Vol] 359 mg/dL High 70-100 [facility] [place] Comment on above: Order Comment: Campu s: M Result Comment: 70-1 00- Normal Fasting; 100-125 Impaired Fasting; greaterthan 126 on more than one result- Diabetes. ADA guidelines.Results may be falsely elevated after the administration ofSulfapyridine.Results may be falsely depressed after the administration ofSulfasalazine. Performed By: #### L 500.64146, L500.13894, L500.60646, L500.72623, L500.66971 ####[facility] [id number] [place], [place] [address]Xx# [phone] Potassium [Moles/Vol] 4.1 mmol/L Normal 3.5-5.1 [facility] Comment on above: Order Comment: Campu s: M Performed By: #### L 500.45305, L500.02321, L500.02809, L500.07395, L500.69436 ####[facility] [id number] [place], [place] [address]Mc# [phone] Sodium [Moles/Vol] 137 mmol/L Normal 136-145 [facility] Comment on above: Order Comment: Campu s: M Performed By: #### L 500.07502, L500.48949, L500.47016, L500.12884, L500.73051 ####[facility] [id number] [place], [place] [address]Wu# [phone] Urea nitrogen [Mass/Vol] 17 mg/dL Normal 7-26 [facility] Comment on above: Order Comment: Campu s: M Performed By: #### L 500.43022, L500.13113, L500.00766, L500.25116, L500.74263 ####[facility] [id number] [place], [place] [address]Xh# [phone] Urea nitrogen/Creatinine [Mass ratio] 26 mg/mg [facility] 15-24 [facility] Comment [facility]: Order Comment: Campu s: M Performed By: #### L 500.81173, L500.69018, L500.23235, L500.84708, L500.22147 ####[facility] [id number] [place], [place] [address]Jh# [phone] CBC W/DIFFon 12-25-2021 BASO ABS 0.00 K/CU MM Normal 0-0.2 [facility] Comment on above: Order Comment: Campu s: M Performed By: #### L 200.49731 ####[facility] [id number] [place] [address] 88202Uw# [phone] Basophils/100 WBC (Bld) 0.2 % Normal 0-2 [facility] [place] Comment on above: Order Comment: Campu s: M Performed By: #### L 200.87659 ####[facility] CVQSOOBXIQ[address] [place] [address] 32172Ds# [phone] EOS ABS 0.00 K/CU MM Normal 0-0.5 [facility] [place] Comment on above: Order Comment: Campu s: M Performed By: #### L 200.50983 ####[facility] VSCQYZLXGF[address] [place] [address] 53214Yi# [phone] Eosinophils/100 WBC (Bld) 0.0 % Normal 0-5 [facility] Comment on above: Order Comment: Campu s: M Performed By: #### L 200.72100 ####[facility] VLCAYDLYBJ[address] [place] [address] 89988If# [phone] Erythrocyte distribution width (RBC) [Ratio] 13.4 % Normal 11-14.5 [facility] Comment on above: Order Comment: Campu s: M Performed By: #### L 200.70668 ####[facility] IDLCJPILZQ6916 [place], [place] [address]Bg# [phone] Hematocrit (Bld) [Volume fraction] 38.3 % Normal 35.0-47.0 [facility] Comment on above: Order Comment: Campu s: M Performed By: #### L 200.73992 ####[facility] EIW[address] [place], [place] [address]Ph# [phone] Hemoglobin (Bld) [Mass/Vol] 13.0 g/dL Normal 11.5-15.5 [facility] Comment on above: Order Comment: Campu s: M Performed By: #### L 200.69201 ####[address] [address]Cl# [phone] IMMATR GRAN ABS 0.20 K/CU MM Normal Less than 2 [facility] [place] Comment on above: Order Comment: Campu s: M Performed By: #### L 200.88433 ####[facility] PLQITMBAVF[address] [place], [place] [address]Ph# [phone] IMMATURE GRAN % 1.0 % Normal Less than 2 [facility] [place] Comment on above: Order Comment: Campu s: M Performed By: #### L 200.60313 ####[facility] QEFDIOXERS[address] [place] [address] 50625Em# [phone] LYMPH ABS 0.90 K/CU MM Normal 0.9-4.4 [facility] [place] Comment on above: Order Comment: Campu s: M Performed By: #### L 200.66956 ####[facility] DYESFWZBCI[address] [place], [place] [address]Ph# [phone] Lymphocytes/100 WBC (Bld) 4.8 % Low 20-40 [facility] Comment on above: Order Comment: Campu s: M Performed By: #### L 200.92189 ####[facility] OUTOXGPEYC[address] [place] [address] 13405Mo# [phone] MCHC (RBC) [Mass/Vol] 33.9 g/dL Normal 32.0-36.0 [facility] Comment on above: Order Comment: Campu s: M Performed By: #### L 200.49473 ####[facility] WUIKTXPEAR[address] [place] [address] 01605Js# [phone] MCV (RBC) [Entitic vol] 84.2 fL Normal 80.0-99.0 [facility] Comment on above: Order Comment: Campu s: M Performed By: #### L 200.86401 ####[facility] AYRIKKXVMH[address] [place], [place] [address]Ph# [phone] MONO ABS 0.50 K/CU MM Normal 0.1-1.1 [facility] Comment on above: Order Comment: Campu s: M Performed By: #### L 200.33440 ####[facility] FAKFLJUDEO[address] [place], [place] [address]Ph# [phone] Monocytes/100 WBC (Bld) 2.4 % Normal 2-10 [facility] Comment on above: Order Comment: Campu s: M Performed By: #### L 200.03622 ####[facility] CDTTMGJTHR[address] [place] [address] 49928Ur# [phone] NEUTROPHIL ABS 17.60 K/CU MM High 2.0-8.3 [facility] Comment on above: Order Comment: Campu s: M Performed By: #### L 200.29828 ####[facility] JLLFJJMXWQ[address] [place], [place] [address]Ph# [phone] Neutrophils/100 WBC (Bld) 91.6 % High 45-75 [facility] Comment on above: Order Comment: Campu s: M Performed By: #### L 200.67810 ####[facility] IMLQAMGIXO[address] [place], [place] [address]Ph# [phone] Nucleated RBC/100 WBC (Bld) [Ratio] 0.0 % Normal Less than 1 [facility] Comment on above: Order Comment: Campu s: M Performed By: #### L 200.34412 ####[facility] RRQHJATVNI5052 [place], [place] [address]Jj# [phone] Platelet mean volume (Bld) [Entitic vol] 13.2 fL High 9.4-12.4 [facility] Comment on above: Order Comment: Campu s: M Performed By: #### L 200.46869 ####[facility] HZWCSXSFWK6908 [place], [place] [address]Eb# [phone] PLT 187 K/CU MM Normal 150-450 [facility] Comment on above: Order Comment: Campu s: M Result Comment: Accu racy questionable due to platelet clumping, actualplatelet count may be higher than the reported value. Performed By: #### L 200.87849 ####[facility] U[address]BW[address] [place] [address] 93445Yx# [phone] PLT EST UNABLE TO QUANTITATE Normal [facility] Comment on above: Order Comment: Campu s: M Performed By: #### L 200.58052 ####[facility] OWXNWAQUNH[address] [place] [address] 77079Ee# [phone] POIK 1+ Normal [facility] Comment on above: Order Comment: Campu s: M Performed By: #### L 200.04500 ####[facility] BWXJSIAYON5365 [place], [place] [address]Fy# [phone] POLY 1+ Normal [facility] Comment on above: Order Comment: Campu s: M Performed By: #### L 200.37714 ####[facility] IWEJEZURJD8596 [place], [place] [address]Ov# [phone] RBC 4.55 M/CU MM Normal 3.90-5.30 [facility] Comment on above: Order Comment: Campu s: M Performed By: #### L 200.31668 ####[facility] MZHJJNICXF3107 [place], [place] [address]Vp# [phone] WBC 19.2 K/CUMM High 4.5-11.0 [facility] Aurea Comment on above: Order Comment: Zach richter: Millicent Performed By: #### L 200.90207 ####[facility] RIFZGLYFVG3291 [facility] [place] [address]Pt# [phone] CNPDanitza 12-25-2021 CNPN Telephone (FVPRAD) KATHLEEN VILLA ([id number]) 1995 F CHT Date Time Provider Department 12/25/21 VELIA KAUR During your visit today, we recorded the following information about you: Velia Kaur MD 12/25/2021 12:44 PM Signed Patient contacted nurse buddhist monk. She is out of infusion sets for [...] every 6 hours as needed. - lancets (BlockBeaconUCH DELActivePath LANCETS) 30 gauge 10 x daily DX [...] Encounter Status:Closed by VELIA KAUR on 12/25/21 [facility] 12-25-2021 [facility] GFR ESTon 12-25-2021 IF AMER Greater than 60 [facility] Comment on above: Order Comment: Zach s: Millicent Performed By: #### L 500.63205, L500.79515, L500.05413, L500.61181, L500.62197 ####[facility] VFJSDXKJGT2395 [place], [place] [address]Og# [phone] IF non-AFR AMER Greater than 60 Normal [facility] Comment on above: Order Comment: Campu s: M Performed By: #### L 500.71010, L500.24018, L500.82380, L500.91754, L500.55024 ####[facility] BRHEDNFAMX6766 [place], [place] [address]Ls# [phone] HCGon 12-25-2021 HCG SER RESULT Negative Normal NEGATIVE [facility] Comment on above: Order Comment: Campu s: M Performed By: #### L 500.20124, L500.61718, L500.48820, L500.75908, L500.72733 ####[facility] OXYMHEEBBG1895 [place], [place] [address]Cw# [phone] HP.IMS.ADMon 12-25-2021 Admission-H&P Normal [facility] HP.IMS.ADM Normal [facility] LACTATE BLOODon 12-25-2021 LACTATE BLOOD 3.03 MMOL/L High 0.40-2.00 [facility] Comment on above: Order Comment: Campu s: M Performed By: #### L 550.53897, L100.12889 ####[facility] XNDVMAWGVT8098 [place], [place] [address]Sx# [phone] LIPASEon 12-25-2021 Lipase [Catalytic activity/Vol] 23 U/L Normal 12-60 [facility] Comment on above: Order Comment: Campu s: M Result Comment: NOTE NEW NORMAL RANGE DUE TO REAGENT CHANGE Performed By: #### L 500.15196, L500.75338, L500.66703, L500.54901, L500.82119 ####[facility] YURXODUXIE2842 [place], [place] [address]Yj# [phone] LIVERon 12-25-2021 Albumin [Mass/Vol] 4.2 g/dL Normal 3.2-5.0 [facility] Comment on above: Order Comment: Campu s: M Performed By: #### L 500.07059, L500.61108, L500.95882, L500.09190, L500.17563 ####[facility] NTOGGPPBQR1422 [place], [place] [address]Nm# [phone] Albumin/Globulin [Mass ratio] 1.6 {ratio} Normal 0.8-2.0 [facility] Comment on above: Order Comment: Campu s: M Performed By: #### L 500.93542, L500.02667, L500.91487, L500.99239, L500.51942 ####[facility] RFQTNZJBCZ4646 [place], [place] [address]Ny# [phone] ALK PHOS 92 U/L Normal 45-117 [facility] Comment on above: Order Comment: Campu s: M Performed By: #### L 500.55455, L500.03198, L500.98950, L500.80928, L500.54072 ####[facility] NQECWGQREA8489 [place], [place] [address]Lc# [phone] ALT [Catalytic activity/Vol] 13 U/L Normal 13-61 [facility] Comment on above: Order Comment: Campu s: M Result Comment: RESU LTS MAY BE FALSELY DEPRESSED AFTER THE ADMINISTRATION OFSULFASALAZINE AND/OR SULFAPYRIDINE. Performed By: #### L 500.66514, L500.37616, L500.64387, L500.79332, L500.15350 ####[facility] OMKTKBWEYG4919 [place], [place] [address]Dv# [phone] AST [Catalytic activity/Vol] 18 U/L Normal 8-34 [facility] Comment on above: Order Comment: Campu s: M Result Comment: RESU LTS MAY BE FALSELY DEPRESSED AFTER THE ADMINISTRATION OFSULFASALAZINE AND/OR SULFAPYRIDINE. Performed By: #### L 500.44305, L500.74587, L500.50736, L500.63304, L500.08683 ####[facility] CGSROSHANG8594 [place], [place] [address]Qq# [phone] BILI DIRECT 0.3 MG/DL Normal 0.00-0.36 [facility] Comment on above: Order Comment: Campu s: M Result Comment: NOTE NEW NORMAL RANGE DUE TO REAGENT CHANGE Performed By: #### L 500.65099, L500.20719, L500.25533, L500.41243, L500.48123 ####[facility] NAHUHJXZFK8169 [place], [place] [address]St# [phone] BILI TOTAL 0.90 MG/DL Normal 0.2-1.0 [facility] Comment on above: Order Comment: Campu s: M Performed By: #### L 500.87239, L500.85157, L500.59157, L500.09667, L500.67374 ####[facility] HEMHZSUMNJ5609 [place], [place] [address]Nm# [phone] Globulin (S) [Mass/Vol] 2.6 g/dL Normal 2.2-4.2 [facility] Comment on above: Order Comment: Campu s: M Performed By: #### L 500.13853, L500.77881, L500.89487, L500.63441, L500.46934 ####[facility] UISQSCOMQD1640 [place], [place] [address]Ii# [phone] Protein [Mass/Vol] 6.8 g/dL Normal 6.0-8.5 [facility] Comment on above: Order Comment: Campu s: M Performed By: #### L 500.52883, L500.59405, L500.70217, L500.97330, L500.24890 ####[address] [place], [place] [address]We# [phone] [id number] 12-25-2021 SARS-CoV-2 (COVID-19) RNA DANIEL+probe Ql (Unsp spec) Negative Invalid Interpretation Code Negative [facility] Comment on above: Order Comment: Campu s: M Result Comment: RESU LTS CALLED TO AND READ BACK BY BETH ROSADO/JUSTIN 195612/25/21 BY NANI CARLISLENegative results do not preclude SARS-CoV-2 infection andshould not be used as the sole basis for treatment or otherpatient management decisions. Negative results must becombined with clinical observation, patient history, andepidemiological information.This test was performed by PCR. Performed By: #### L 770.01283 ####[facility] SWRPHJXBKP5992 [place], [place] [address]Pv# [phone] UA COMPLETEon 12-25-2021 Color (U) Straw Normal [facility] Comment on above: Order Comment: Campu s: M Performed By: #### L 600.78855 ####[facility] TQYDKIPDPF[address] [place] [address] 8[address]Dp# [phone] Glucose (U) [Mass/Vol] 500 mg/dL Normal NORMAL [facility] Comment on above: Order Comment: Campu s: M Performed By: #### L 600.17474 ####[facility] UHSZIAKXCC[address] [place] [address] 57[address]In# [phone] UA APPEARANCE Clear Normal CLEAR [facility] Comment on above: Order Comment: Campu s: M Performed By: #### L 600.77023 ####[facility] EMRPXWNZWK398[address] [place] [address] 57[address]Cb# [phone] UA BILIRUBIN Negative Normal NEGATIVE [facility] Comment on above: Order Comment: Campu s: M Performed By: #### L 600.52751 ####[facility] ILYOFXSXBA0867 [place], [place] [address]Cp# [phone] UA BLOOD Negative Normal NEGATIVE [facility] Comment on above: Order Comment: Campu s: M Performed By: #### L 600.73369 ####[facility] YUVMBWZICX5486 [place], [place] [address]Wr# [phone] UA KETONE 80 Normal NEGATIVE [facility] Comment on above: Order Comment: Campu s: M Performed By: #### L 600.91382 ####[facility] TIQDGOFYEQ[address] [place] [address] 794[address]Zg# [phone] UA LK ESTERASE Negative Normal NEGATIVE [facility] Comment on above: Order Comment: Campu s: M Performed By: #### L 600.17613 ####[facility] N[address]HGRUZOP[address] [place] [address] 2[address]Pl# [phone] UA NITRITE Negative Normal NEGATIVE [facility] Comment on above: Order Comment: Campu s: M Performed By: #### L 600.25571 ####[address] [address]Sw# [phone] UA PH 7.0 Normal 5-6 [facility] Comment on above: Order Comment: Campu s: M Performed By: #### L 600.99828 ####[address] [address]Bn# [phone] UA PROTEIN Negative Normal NEGATIVE [facility] Comment on above: Order Comment: Campu s: M Performed By: #### L 600.82874 ####[facility] AVSRACGQEG[address] [place] [address] 11924Qt# [phone] UA SPEC GRAV 1.028 Normal 1.005-1.030 [facility] Comment on above: Order Comment: Campu s: M Performed By: #### L 600.64759 ####[facility] ELWECJBLBH[address] [place] [address] 256[address]Fg# [phone] UA UROBILINOGEN Negative Normal NORMAL [facility] Comment on above: Order Comment: Campu s: M Performed By: #### L 600.23343 ####[facility] IWWVKOOSKH7907[address] [place] [address] 260[address]Dd# [phone] VBGPEon 12-25-2021 BASE EXCESS -3.6 MMOL/L Low 0-2 [facility] Comment on above: Order Comment: Campu s: M Performed By: #### L 550.99192, L100.36088 ####[facility] KVLMQWNTCJ7672 [place], [place] [address]Fg# [phone] Body temperature 98.6 [degF] Normal [facility] Comment on above: Order Comment: Campu s: M Performed By: #### L 550.36945, L100.30646 ####[address] [address]Ro# [phone] EQUIPMENT UNKNOWN Normal [facility] Comment on above: Order Comment: Campu s: M Performed By: #### L 550.50157, L100.88040 ####[address] [address]Rd# [phone] HCO3 (Bld) [Moles/Vol] 17.0 mmol/L Low 22-26 M [facility] Comment on above: Order Comment: Campu s: M Performed By: #### L 550.29031, L100.73170 ####[address] [address]No# [phone] Hemoglobin (Bld) [Mass/Vol] 14.2 g/dL Low 16.0-22.0 [facility] Comment on above: Order Comment: Campu s: M Performed By: #### L 550.75829, L100.46997 ####[address] [address]Oq# [phone] IONIZED CA 1.13 MMOL/L Normal 1.13-1.32 [facility] Comment on above: Order Comment: Campu s: M Performed By: #### L 550.77675, L100.81470 ####[facility] RZKJRIRHIQ[address] [place] [address]Zy# [phone] Potassium [Moles/Vol] 4.1 mmol/L Normal 3.5-5.0 [facility] Comment on above: Order Comment: Campu s: M Performed By: #### L 550.44035, L100.18837 ####[facility] QMTBPKGYVP[address] [place] [address] 704[address]Jk# [phone] SAMPLE SITE VENOUS Normal [facility] Comment on above: Order Comment: Campu s: M Performed By: #### L 550.71509, L100.75981 ####[address] [address]Bk# [phone] SAMPLE TYPE VENOUS Normal [facility] Comment on above: Order Comment: Campu s: M Performed By: #### L 550.49224, L1.65878 ####[address] [address]Hw# [phone] Sodium [Moles/Vol] 136 mmol/L Normal 136-148 [facility] Comment on above: Order Comment: Campu s: M Performed By: #### L 550.38825, L1.50760 ####[place] [address]Ph# [phone] VBG CARBOXYHGB 1.4 % Normal 0-10 [facility] Comment on above: Order Comment: Campu s: M Performed By: #### L 550.72272, L1.58739 ####[address] [address]Zg# [phone] VBG METHGB 0.3 % Low 0.4-1.5 [facility] Comment on above: Order Comment: Campu s: M Performed By: #### L 550.53209, L1.35024 ####[facility] IXUJTZMXFN[address] [place] [address] 66[address]Oo# [phone] VBG O2 CAPACITY 19.4 VOL% Normal [facility] Comment on above: Order Comment: Campu s: M Performed By: #### L 550.68182, L100.64756 ####[facility] GWIXNRTZKI9[address] [place] [address]Cz# [phone] VBG O2 HG SATUR 65.5 % Normal 40-70 [facility] Comment on above: Order Comment: Campu s: M Performed By: #### L 550.88587, L100.70663 ####[facility] VRUDGETADT6345 [place], [place] [address]Pj# [phone] VBG PCO2 21.5 MMHG Critically low 40-50 [facility] Comment on above: Order Comment: Campu s: M Result Comment: CRIT ICAL VALUE(S) VERIFIED AND HAND DELIVERED TO AND READBACK BY DR. HOFFMAN AT 1835 12/25/21 BY JOSE MARCIAL. Performed By: #### L 550.23722, L100.74224 ####[address] [place], [place] [address]Hy# [phone] VBG PH 7.52 MMHG High 7.31-7.41 [facility] Comment on above: Order Comment: Campu s: M Performed By: #### L 550.33142, L100.28197 ####[facility] ERURTLIBEK5440 [place], [place] [address]Pt# [phone] VBG PO2 LESS THAN 32.4 Low 35-45 [facility] Comment on above: Order Comment: Campu s: M Result Comment: VALU E IS OUTSIDE OF THE VERIFIED RANGES OF THIS ANALYZER.LIN MARCIAL Performed By: #### L 550.52434, L100.47783 ####[facility] AREHDWJXES[address] [place] [address] 35[address]Ba# [phone] DISCH.SUMon 10-25-2021 DISCH.SUM Normal [facility] GLUCOSE METERon 10-25-2021 Glucose [Mass/Vol] 113 mg/dL Normal 70-115 [facility] Glucose [Mass/Vol] 108 mg/dL Normal 70-115 [facility] BMPon 10-24-2021 Anion gap [Moles/Vol] 12 mmol/L Normal 5-16 [facility] Comment on above: Order Comment: Campu s: M Performed By: #### L 500.19164, L500.20911 ####[facility] WAWNKWLSEG[address] [place] [address]16[address]Zq# [phone] Calcium [Mass/Vol] 8.4 mg/dL Low 8.5-10.5 [facility] Comment on above: Order Comment: Campu s: M Result Comment: NOTE NEW NORMAL RANGE DUE TO REAGENT CHANGE Performed By: #### L 500.48256, L500.97547 ####[facility] WSCPNJXYGN[address] [place] [address]Ej# [phone] Chloride [Moles/Vol] 103 mmol/L Normal 98-107 [facility] Comment on above: Order Comment: Campu s: M Performed By: #### L 500.34354, L500.46513 ####[facility] VTMDHVHXWE6[address] [place] [address] 434[address]Cr# [phone] CO2 [Moles/Vol] 24.0 mmol/L Normal 21-32 [facility] Comment on above: Order Comment: Campu s: M Performed By: #### L 500.92505, L500.18562 ####[facility] ZCSWPJGGNY[address] [place] [address] 12[address]Wo# [phone] Creatinine [Mass/Vol] 0.69 mg/dL Normal 0.510-0.950 [facility] Comment on above: Order Comment: Campu s: M Result Comment: Cleopatra ents receiving either N-Acetylcysteine (NAC) orMetamizole prior to venipuncture, may have falsely depressedresults. Performed By: #### L 500.35853, L500.44460 ####[facility] HBDHRLAWIG[address] [place] [address] 454[address]Af# [phone] Glucose [Mass/Vol] 113 mg/dL High 70-100 [facility] Comment on above: Order Comment: Campu s: M Result Comment: 70-1 00- Normal Fasting; 100-125 Impaired Fasting; greaterthan 126 on more than one result- Diabetes. ADA guidelines.Results may be falsely elevated after the administration ofSulfapyridine.Results may be falsely depressed after the administration ofSulfasalazine. Performed By: #### L 500.92198, L500.06159 ####[facility] SIBMSZBQMC5771 [place], [place] [address]Ap# [phone] Potassium [Moles/Vol] 3.0 mmol/L Low 3.5-5.1 [facility] Comment on above: Order Comment: Campu s: M Result Comment: NOT A CRITICAL Performed By: #### L 500.11212, L500.86786 ####[address] [address]Xn# [phone] Sodium [Moles/Vol] 139 mmol/L Normal 136-145 [facility] Comment on above: Order Comment: Campu s: M Performed By: #### L 500.52705, L500.42072 ####[address] [address]Mm# [phone] Urea nitrogen [Mass/Vol] 10 mg/dL Normal 7-26 [facility] Comment on above: Order Comment: Campu s: M Performed By: #### L 500.37430, L500.27322 ####[facility] LYWGAAVDVP[address] [place] [address] 457[address]Pt# [phone] Urea nitrogen/Creatinine [Mass ratio] 15 mg/mg Normal 15-24 [facility] Comment on above: Order Comment: Campu s: M Performed By: #### L 500.66770, L500.74819 ####[facility] MHLPJCWMWB[address] [place] [address]Ia# [phone] CBC W/DIFFon 10-24-2021 BASO ABS 0.00 K/CU MM Normal 0-0.2 [facility] Comment on above: Order Comment: Campu s: M Performed By: #### L 200.87987 ####[facility] [id number] [place] [address]Hp# [phone] Basophils/100 WBC (Bld) 0.2 % Normal 0-2 [facility] Comment [facility]: Order Comment: Campu s: M Performed By: #### L 200.22552 ####[facility] [id number] [place], [place] [address]Gi# [phone] EOS ABS 0.00 K/CU MM Normal 0-0.5 [facility] Comment on above: Order Comment: Campu s: M Performed By: #### L 200.21910 ####[address] [address]Xv# [phone] Eosinophils/100 WBC (Bld) 0.0 % Normal 0-5 [facility] Comment on above: Order Comment: Campu s: M Performed By: #### L 200.67875 ####[place] [id number]# [phone] Erythrocyte distribution width (RBC) [Ratio] 13.3 % Normal 11-14.5 [facility] Comment on above: Order Comment: Campu s: M Performed By: #### L 200.03924 ####[facility] [id number] [place], [place] [id number]# [phone] Hematocrit (Bld) [Volume fraction] 36.5 % Normal 35.0-47.0 [facility] Comment on above: Order Comment: Campu s: M Performed By: #### L 200.60261 ####[address] [address]Zt# [phone] Hemoglobin (Bld) [Mass/Vol] 12.3 g/dL Normal 11.5-15.5 [facility] Comment on above: Order Comment: Campu s: M Performed By: #### L 200.94585 ####[facility] [id number] [place], [place] [id number]# [phone] IMMATR GRAN ABS 0.20 K/CU MM Normal Less than 2 [facility] [place] Comment on above: Order Comment: Campu s: M Performed By: #### L 200.95237 ####[facility] [id number] [place], [place] [address]Ph# [phone] IMMATURE GRAN % 1.3 % Normal Less than 2 [facility] [place] Comment on above: Order Comment: Campu s: M Performed By: #### L 200.40576 ####[facility] [id number] [place] [address]Xz# [phone] LYMPH ABS 1.90 K/CU MM Normal 0.9-4.4 [facility] Comment on above: Order Comment: Campu s: M Performed By: #### L 200.50923 ####[place] [id number]# [phone] Lymphocytes/100 WBC (Bld) 14.9 % Low 20-40 [facility] Comment on above: Order Comment: Campu s: M Performed By: #### L 200.74292 ####[address] [address]Sy# [phone] MCHC (RBC) [Mass/Vol] 33.7 g/dL Normal 32.0-36.0 [facility] Comment on above: Order Comment: Campu s: M Performed By: #### L 200.79755 ####[place] [address]Ph# [phone] MCV (RBC) [Entitic vol] 84.1 fL Normal 80.0-99.0 [facility] Comment on above: Order Comment: Campu s: M Performed By: #### L 200.71034 ####[facility] [address] [place] [address] 340[address]Gd# [phone] MONO ABS 0.70 K/CU MM Normal 0.1-1.1 [facility] Comment on above: Order Comment: Campu s: M Performed By: #### L 200.20623 ####[facility] OJCBKCVIWB[address] [place] [address]Io# [phone] Monocytes/100 WBC (Bld) 5.3 % Normal 2-10 [facility] Comment on above: Order Comment: Campu s: M Performed By: #### L 200.61413 ####[facility] QUTJZJUGFQ2293 [place], [place] [address]Gr# [phone] NEUTROPHIL ABS 10.10 K/CU MM High 2.0-8.3 [facility] Comment on above: Order Comment: Campu s: M Performed By: #### L 200.27181 ####[facility] NCXLMOAHFQ[address] [place] [address]Xq# [phone] Neutrophils/100 WBC (Bld) 78.3 % High 45-75 [facility] Comment on above: Order Comment: Campu s: M Performed By: #### L 200.01945 ####[facility] GABGKPFIAL[address] [place], [place] [address]Ph# [phone] Nucleated RBC/100 WBC (Bld) [Ratio] 0.0 % Normal Less than 1 [facility] Comment on above: Order Comment: Campu s: M Performed By: #### L 200.10756 ####[facility] G[address]IRUIBZ[address] [place] [address] 48441El# [phone] Platelet mean volume (Bld) [Entitic vol] 11.8 fL Normal 9.4-12.4 [facility] Comment on above: Order Comment: Campu s: M Performed By: #### L 200.22750 ####[facility] ATTSIXELXQ7134 [place], [place] [address]Yc# [phone] PLT 176 K/CU MM Normal 150-450 [facility] Comment on above: Order Comment: Campu s: M Performed By: #### L 200.41142 ####[facility] RESFEAYUYL8049 [place], [place] [address]Uv# [phone] RBC 4.34 M/CU MM Normal 3.90-5.30 [facility] Comment on above: Order Comment: Campu s: M Performed By: #### L 200.38362 ####[facility] HUCAFXCJTJ2083 [place], [place] [address]Tb# [phone] WBC 12.9 K/CUMM High 4.5-11.0 [facility] Comment on above: Order Comment: Campu s: M Performed By: #### L 200.44650 ####[facility] LDRBUOEPIO9852 [place], [place] [address]Lp# [phone] GFR ESTon 10-24-2021 IF AMER Greater than 60 Normal [facility] Comment on above: Order Comment: Campu s: M Performed By: #### L 500.04584, L500.15744 ####[facility] ZIJRTVRYEZ9944 [place], [place] [address]Fr# [phone] IF non-AFR AMER Greater than 60 Normal [facility] Comment on above: Order Comment: Campu s: M Performed By: #### L 500.65896, L500.18028 ####[facility] UDIKGNGQLY2947 [place], [place] [address]Ei# [phone] GLUCOSE METERon 10-24-2021 Glucose [Mass/Vol] 203 mg/dL High 70-115 [facility] Glucose [Mass/Vol] 115 mg/dL Normal 70-115 [facility] Glucose [Mass/Vol] 103 mg/dL Normal 70-115 [facility] Glucose [Mass/Vol] 112 mg/dL Normal 70-115 [facility]MSon 10-24-2021 PROG IMS Normal [facility] Progress Note-Hospitalist Normal [facility] PTon 10-24-2021 INR Coag (PPP) [Relative time] 1.05 {INR} Normal 0.9-1.1 [facility] Comment on above: Order Comment: Campu s: M Result Comment: Den mmended PT INR therapeutic range for residential andprophylactic therapy is 2.0 - 3.0. For heart valve andshunt patients the range is 2.5 - 3.5. Performed By: #### L 300.42924 ####[facility] KOCXQOXITD7402 [place], [place] [address]Il# [phone] PTS 11.4 SECONDS Normal 9.5-12.0 [facility] Comment on above: Order Comment: Campu s: M Performed By: #### L 300.84546 ####[facility] CNGIBGLAXZ[address] [place] [address]Ep# [phone] UA COMPLETEon 10-24-2021 Color (U) Straw Normal [facility] Comment on above: Order Comment: Campu s: M Performed By: #### L 600.21734 ####[address] [address]Tu# [phone] Glucose (U) [Mass/Vol] Negative Normal NORMAL Me [facility] Comment on above: Order Comment: Campu s: M Performed By: #### L 600.17862 ####[address] [address]Eh# [phone] UA APPEARANCE Clear Normal CLEAR [facility] Comment on above: Order Comment: Campu s: M Performed By: #### L 600.01902 ####[facility] [address]VSUMJCFPT[address] [place] [address]Dj# [phone] UA BILIRUBIN Negative Normal NEGATIVE [facility] Comment on above: Order Comment: Campu s: M Performed By: #### L 600.28442 ####[facility] MJUDFKKPVF[address] [place] [address]Qh# [phone] UA BLOOD Negative Normal NEGATIVE [facility] Comment on above: Order Comment: Campu s: M Performed By: #### L 600.97773 ####[facility] LMZQUUYDFP[address] [place] [address]Ih# [phone] UA KETONE 20 Normal NEGATIVE [facility] Comment on above: Order Comment: Campu s: M Performed By: #### L 600.92698 ####[facility] I[address]ZLOVHWQ[address] [place] [address]Cj# [phone] UA LK ESTERASE Negative Normal NEGATIVE [facility] Comment on above: Order Comment: Campu s: M Performed By: #### L 600.45225 ####[facility] RQYWALGQQE[address] [place] [address] 158[address]Fs# [phone] UA NITRITE Negative Normal NEGATIVE [facility] Comment on above: Order Comment: Campu s: M Performed By: #### L 600.12610 ####[facility] SQVKPWULKD0157 [place], [place] [address]Zu# [phone] UA PH 7.0 Normal - [facility] Comment on above: Order Comment: Campu s: M Performed By: #### L 600.82385 ####[facility] SAZYSCOCVC[address] [place] [address] 69[address]Ky# [phone] UA PROTEIN Negative Normal NEGATIVE [facility] Comment on above: Order Comment: Campu s: M Performed By: #### L 600.51433 ####[facility] FFECTOHEIK[address] [place] [address]Ux# [phone] UA SPEC GRAV 1.009 Normal 1.005-1.030 [facility] Comment on above: Order Comment: Campu s: M Performed By: #### L 600.37632 ####[facility] [address]PLXGITWTS[address] [place] [address] 368[address]Rp# [phone] UA UROBILINOGEN Negative Normal NORMAL [facility] Comment on above: Order Comment: Campu s: M Performed By: #### L 600.66186 ####[facility] APPAJLTRAJ[address] [place] [address] 77[address]Od# [phone] BMPon 10-23-2021 Anion gap [Moles/Vol] 12 mmol/L Normal 5-16 [facility] Comment on above: Order Comment: Campu s: M Performed By: #### L 500.61842, L500.31931, L500.97781 ####[facility] YLQAEYARMX[address] [place] [address] 479[address]Xv# [phone] Calcium [Mass/Vol] 8.7 mg/dL Normal 8.5-10.5 [facility] Comment on above: Order Comment: Campu s: M Result Comment: NOTE NEW NORMAL RANGE DUE TO REAGENT CHANGE Performed By: #### L 500.54523, L500.64106, L500.93001 ####[facility] KGCBLLHNKP4311 [place], [place] [address]Cw# [phone] Chloride [Moles/Vol] 107 mmol/L Normal 98-107 [facility] Comment on above: Order Comment: Campu s: M Performed By: #### L 500.78309, L500.43585, L500.80126 ####[facility] HEKNHTLZMK0297 [place], [place] [address]Xf# [phone] CO2 [Moles/Vol] 22.0 mmol/L Normal 21-32 [facility] Comment on above: Order Comment: Campu s: M Performed By: #### L 500.72889, L500.63447, L500.78038 ####[facility] SPAJYVUZIU5199 [place], [place] [address]Jd# [phone] Creatinine [Mass/Vol] 0.62 mg/dL Normal 0.510-0.950 [facility] Comment on above: Order Comment: Campu s: M Result Comment: Cleoaptra ents receiving either N-Acetylcysteine (NAC) orMetamizole prior to venipuncture, may have falsely depressedresults. Performed By: #### L 500.11129, L500.38677, L500.36455 ####[facility] GCFAFWRSPN8568 [place], [place] [address]Qo# [phone] Glucose [Mass/Vol] 208 mg/dL High 70-100 [facility] Comment on above: Order Comment: Campu s: M Result Comment: 70-1 00- Normal Fasting; 100-125 Impaired Fasting; greaterthan 126 on more than one result- Diabetes. ADA guidelines.Results may be falsely elevated after the administration ofSulfapyridine.Results may be falsely depressed after the administration ofSulfasalazine. Performed By: #### L 500.18195, L500.02763, L500.19967 ####[facility] PNOAYHAWWK3534 [place], [place] [address]Bm# [phone] Potassium [Moles/Vol] 3.2 mmol/L Low 3.5-5.1 [facility] Comment on above: Order Comment: Campu s: M Performed By: #### L 500.88142, L500.43892, L500.57955 ####[facility] MABHIOWVMF0575 [place], [place] [address]Mm# [phone] Sodium [Moles/Vol] 141 mmol/L Normal 136-145 [facility] Comment on above: Order Comment: Campu s: M Performed By: #### L 500.09265, L500.68778, L500.56121 ####[facility] [address]QZULYIMQ[address] [place] [address]Hj# [phone] Urea nitrogen [Mass/Vol] 16 mg/dL Normal 7-26 [facility] Comment on above: Order Comment: Campu s: M Performed By: #### L 500.67673, L500.12669, L500.73674 ####[facility] VSXZCGDAYP[address] [place] [address]Im# [phone] Urea nitrogen/Creatinine [Mass ratio] 26 mg/mg High 15-24 [facility] Comment on above: Order Comment: Campu s: M Performed By: #### L 500.69747, L500.65642, L500.95180 ####[place] [address] [place], [place] [address]Rm# [phone] CBC W/DIFFon 10-23-2021 BASO ABS 0.00 K/CU MM Normal 0-0.2 [facility] Comment on above: Order Comment: Campu s: M Performed By: #### L 200.55410 ####[facility] [address]ROHCWWFJ[address] [place] [address]Ia# [phone] Basophils/100 WBC (Bld) 0.2 % Normal 0-2 [facility] Comment on above: Order Comment: Campu s: M Performed By: #### L 200.55540 ####[facility] K[address]IMBXFXPL[address] [place] [address] 10[address]Ks# [phone] EOS ABS 0.00 K/CU MM Normal 0-0.5 [facility] Comment on above: Order Comment: Campu s: M Performed By: #### L 200.73167 ####[facility] RQCWMWIPRT[address] [place], [place] [address]Ph# [phone] Eosinophils/100 WBC (Bld) 0.0 % Normal 0-5 [facility] Comment on above: Order Comment: Campu s: M Performed By: #### L 200.64394 ####[facility] JYQECKZCBP[address] [place], [place] [address]Ph# [phone] Erythrocyte distribution width (RBC) [Ratio] 13.9 % Normal 11-14.5 [facility] Comment on above: Order Comment: Campu s: M Performed By: #### L 200.63127 ####[place] [address]Ph# [phone] Hematocrit (Bld) [Volume fraction] 32.9 % Low 35.0-47.0 [facility] Comment on above: Order Comment: Campu s: M Performed By: #### L 200.85865 ####[facility] HNNKDWRUTE[address] [place], [place] [address]Ph# [phone] Hemoglobin (Bld) [Mass/Vol] 11.0 g/dL Low 11.5-15.5 [facility] Comment on above: Order Comment: Campu s: M Performed By: #### L 200.65614 ####[facility] LULNOIJBMW[address] [place], [place] [address]Ph# [phone] IMMATR GRAN ABS 0.10 K/CU MM Normal Less than 2 [facility] Comment on above: Order Comment: Campu s: M Performed By: #### L 200.36968 ####[facility] ILJECWRRWX[address] [place], [place] [address]Ph# [phone] IMMATURE GRAN % 0.8 % Normal Less than 2 [facility] Comment on above: Order Comment: Campu s: M Performed By: #### L 200.04277 ####[facility] TXSQANOCAH3575 [place], [place] [address]Za# [phone] LYMPH ABS 1.80 K/CU MM Normal 0.9-4.4 [facility] Comment on above: Order Comment: Campu s: M Performed By: #### L 200.98762 ####[facility] U[address]ZWMPUUS[address] [place] [address] 338[address]Al# [phone] Lymphocytes/100 WBC (Bld) 10.5 % Low 20-40 [facility] Comment on above: Order Comment: Campu s: M Performed By: #### L 200.95268 ####[address] [address]Hs# [phone] MCHC (RBC) [Mass/Vol] 33.4 g/dL Normal 32.0-36.0 [facility] Comment on above: Order Comment: Campu s: M Performed By: #### L 200.71537 ####[facility] XNSYIOWRIG[address] [place] [address] 18[address]Zy# [phone] MCV (RBC) [Entitic vol] 84.6 fL Normal 80.0-99.0 [facility] Comment on above: Order Comment: Campu s: M Performed By: #### L 200.54062 ####[address] [address]Pu# [phone] MONO ABS 0.70 K/CU MM Normal 0.1-1.1 [facility] Comment on above: Order Comment: Campu s: M Performed By: #### L 200.85608 ####[facility] ACMELWBFNN[address] [place] [address] 8[address]Zz# [phone] Monocytes/100 WBC (Bld) 3.9 % Normal 2-10 [facility] Comment on above: Order Comment: Campu s: M Performed By: #### L 200.39109 ####[facility] FSWPPIYDOR[address] [place] [address] 168[address]Yu# [phone] NEUTROPHIL ABS 14.50 K/CU MM High 2.0-8.3 [facility] Comment on above: Order Comment: Campu s: M Performed By: #### L 200.24065 ####[facility] JLCGFKXMQK8733 [place], [place] [address]Am# [phone] Neutrophils/100 WBC (Bld) 84.6 % High 45-75 [facility] Comment on above: Order Comment: Campu s: M Performed By: #### L 200.23020 ####[facility] IYACEIPEXU[address] [place] [address]Ea# [phone] Nucleated RBC/100 WBC (Bld) [Ratio] 0.0 % Normal Less than 1 [facility] Comment on above: Order Comment: Campu s: M Performed By: #### L 200.76545 ####[facility] UYZPDYMOIO[address] [place] [address] 08[address]Oh# [phone] Platelet mean volume (Bld) [Entitic vol] 12.2 fL Normal 9.4-12.4 [facility] Comment on above: Order Comment: Campu s: M Performed By: #### L 200.35643 ####[facility] DNBUTOAKNA[address] [place] [address] 245[address]It# [phone] PLT 145 K/CU MM Low 150-450 [facility] Comment on above: Order Comment: Campu s: M Performed By: #### L 200.30771 ####[facility] VCJUJRTPMG[address] [place] [address] 18[address]Hw# [phone] RBC 3.89 M/CU MM Low 3.90-5.30 [facility] Comment on above: Order Comment: Campu s: M Performed By: #### L 200.90718 ####[facility] AJOJFKPUTL0509 [place], [place] [address]Mx# [phone] WBC 17.1 K/CUMM High 4.5-11.0 [facility] Comment on above: Order Comment: Campu s: M Performed By: #### L 200.41357 ####[facility] BRWJOVVPLH6862 [place], [place] [address]Fv# [phone] GFR ESTon 10-23-2021 IF AMER Greater than 60 Normal [facility] Comment on above: Order Comment: Campu s: M Performed By: #### L 500.29079, L500.15261, L500.43549 ####[facility] XPIIQHGCRS1081 [place], [place] [address]Zc# [phone] IF non-AFR AMER Greater than 60 Normal [facility] Comment on above: Order Comment: Campu s: M Performed By: #### L 500.03427, L500.17253, L500.32254 ####[facility] GTXPWHKHSX9797 [place], [place] [address]Nh# [phone] GLUCOSE METERon 10-23-2021 Glucose [Mass/Vol] 142 mg/dL High 70-115 [facility] Glucose [Mass/Vol] 127 mg/dL High 70-115 [facility] Glucose [Mass/Vol] 172 mg/dL High 70-115 [facility] MAGNESIUMon 10-23-2021 Magnesium [Mass/Vol] 1.7 mg/dL Normal 1.6-2.6 [facility] Comment on above: Order Comment: Campu s: M Performed By: #### L 500.81638, L500.72027, L500.94766 ####[facility] PPJJNGESRI7405 [place], [place] [address]Hc# [phone] PROG IMSon 10-23-2021 PROG IMS Normal [facility] Progress Note-Hospitalist Normal [facility] BMPon 10-22-2021 Anion gap [Moles/Vol] 10 mmol/L Normal 5-16 [facility] Comment on above: Order Comment: Campu s: M Performed By: #### L 500.62180, L500.60192 ####[facility] ORMCJAWKEF2324 [place], [place] [address]Jh# [phone] Calcium [Mass/Vol] 8.9 mg/dL Normal 8.5-10.5 [facility] Comment on above: Order Comment: Campu s: M Result Comment: NOTE NEW NORMAL RANGE DUE TO REAGENT CHANGE Performed By: #### L 500.18576, L500.72271 ####[facility] GNJKGFVLIW3657 [place], [place] [address]Jz# [phone] Chloride [Moles/Vol] 109 mmol/L High 98-107 [facility] Comment on above: Order Comment: Campu s: M Performed By: #### L 500.78990, L500.79775 ####[facility] QQKHNTAHVC8618 [place], [place] [address]Qh# [phone] CO2 [Moles/Vol] 20.0 mmol/L Low 21-32 [facility] Comment on above: Order Comment: Campu s: M Performed By: #### L 500.70296, L5.41245 ####[facility] NBBFBOKTEA1298 [place], [place] [address]Sv# [phone] Creatinine [Mass/Vol] 0.63 mg/dL Normal 0.510-0.950 [facility] Comment on above: Order Comment: Campu s: M Result Comment: Cleopatra ents receiving either N-Acetylcysteine (NAC) orMetamizole prior to venipuncture, may have falsely depressedresults. Performed By: #### L 500.47552, L500.86532 ####[facility] MLQLEUBUZX8212 [place], [place] [address]To# [phone] Glucose [Mass/Vol] 237 mg/dL High 70-100 [facility] Comment on above: Order Comment: Campu s: M Result Comment: 70-1 00- Normal Fasting; 100-125 Impaired Fasting; greaterthan 126 on more than one result- Diabetes. ADA guidelines.Results may be falsely elevated after the administration ofSulfapyridine.Results may be falsely depressed after the administration ofSulfasalazine. Performed By: #### L 500.66985, L500.05368 ####[facility] LXIYFUZPST1303 [place], [place] [address]Cj# [phone] Potassium [Moles/Vol] 3.8 mmol/L Normal 3.5-5.1 [facility] Comment on above: Order Comment: Campu s: M Performed By: #### L 500.60377, L500.36660 ####[facility] ICBCMRQEEN0150 [place], [place] [address]Hr# [phone] Sodium [Moles/Vol] 140 mmol/L Normal 136-145 [facility] Comment on above: Order Comment: Campu s: M Performed By: #### L 500.90233, L500.57820 ####[facility] SRILPQNLMT[address] [place] [address]Rg# [phone] Urea nitrogen [Mass/Vol] 15 mg/dL Normal 7-26 [facility] Comment on above: Order Comment: Campu s: M Performed By: #### L 500.39387, L500.85549 ####[facility] JPAFYRNTND[address] [place] [address]Xd# [phone] Urea nitrogen/Creatinine [Mass ratio] 24 mg/mg Normal 15-24 [facility] Comment on above: Order Comment: Campu s: M Performed By: #### L 500.62506, L500.51057 ####[facility] SVJHYQCDHO[address] [place] [address]Du# [phone] Urea nitrogen/Creatinine [Mass ratio] 25 mg/mg High 15-24 [facility] Comment on above: Order Comment: Campu s: M Performed By: #### L 500.25761, L500.71839, L500.88013, L500.68797 ####[facility] CGOELQATJN0329 [place], [place] [address]Ev# [phone] Anion gap [Moles/Vol] 12 mmol/L Normal 5-16 [facility] Comment on above: Order Comment: Campu s: M Performed By: #### L 500.63279, L500.41357, L500.04869, L500.86758 ####[facility] YPOYWILPKR1856 [place], [place] [address]My# [phone] Calcium [Mass/Vol] 10.1 mg/dL Normal 8.5-10.5 [facility] Comment on above: Order Comment: Campu s: M Result Comment: NOTE NEW NORMAL RANGE DUE TO REAGENT CHANGE Performed By: #### L 500.10451, L500.33137, L500.17984, L500.29408 ####[facility] SOOQXCKYNX5040 [place], [place] [address]Wf# [phone] Chloride [Moles/Vol] 107 mmol/L Normal 98-107 [facility] Comment on above: Order Comment: Campu s: M Performed By: #### L 500.46359, L500.42058, L500.44088, L500.83093 ####[facility] BTPUAXOOIQ1219 [place], [place] [address]Sm# [phone] CO2 [Moles/Vol] 20.0 mmol/L Low 21-32 [facility] Comment on above: Order Comment: Campu s: M Performed By: #### L 500.71765, L500.65089, L500.67353, L500.59774 ####[facility] GZAAEMFSUG7368 [place], [place] [address]Nv# [phone] Creatinine [Mass/Vol] 0.64 mg/dL Normal 0.510-0.950 [facility] Comment on above: Order Comment: Campu s: M Result Comment: Cleopatra ents receiving either N-Acetylcysteine (NAC) orMetamizole prior to venipuncture, may have falsely depressedresults. Performed By: #### L 500.91331, L500.11553, L500.64388, L500.01300 ####[facility] [address]YXYTQOC[address] [place] [address]Cj# [phone] Glucose [Mass/Vol] 309 mg/dL High 70-100 [facility] Comment on above: Order Comment: Campu s: M Result Comment: 70-1 00- Normal Fasting; 100-125 Impaired Fasting; greaterthan 126 on more than one result- Diabetes. ADA guidelines.Results may be falsely elevated after the administration ofSulfapyridine.Results may be falsely depressed after the administration ofSulfasalazine. Performed By: #### L 500.45717, L500.20925, L500.78581, L500.39230 ####[facility] [id number] [place], [place] [address]St# [phone] Potassium [Moles/Vol] 3.9 mmol/L Normal 3.5-5.1 [facility] Comment on above: Order Comment: Campu s: M Performed By: #### L 500.17559, L500.90401, L500.49735, L500.70874 ####[facility] [id number] [place], [place] [address]Vn# [phone] Sodium [Moles/Vol] 139 mmol/L Normal 136-145 [facility] Comment on above: Order Comment: Campu s: M Performed By: #### L 500.25778, L500.51588, L500.89181, L500.08972 ####[facility] [id number] [place], [place] [address]Ec# [phone] Urea nitrogen [Mass/Vol] 16 mg/dL [facility] 7-26 [facility]: Order Comment: Campu s: M Performed By: #### L 500.48824, L500.69047, L500.32717, L500.40502 ####[facility] [id number] [place], [place] [address]Hg# [phone] CBC W/DIFFon 10-22-2021 BASO ABS 0.10 K/CU MM Normal 0-0.2 [facility] Comment [facility] above: Order Comment: Campu s: M Performed By: #### L 200.00152 ####[facility] [id number] [place] [address]Iz# [phone] Basophils/100 WBC (Bld) 0.2 % Normal 0-2 [facility] [place] Comment on above: Order Comment: Campu s: M Performed By: #### L 200.27575 ####[facility] [id number] [place], [place] [address]Zs# [phone] EOS ABS 0.00 K/CU MM Normal 0-0.5 [facility] Comment on above: Order Comment: Campu s: M Performed By: #### L 200.48831 ####[address] [address]Er# [phone] Eosinophils/100 WBC (Bld) 0.0 % Normal 0-5 [facility] [facility] Comment on above: Order Comment: Campu s: M Performed By: #### L 200.97849 ####[address] [address]Ei# [phone] Erythrocyte distribution width (RBC) [Ratio] 13.5 % Normal 11-14.5 [facility] Comment on above: Order Comment: Campu s: M Performed By: #### L 200.28023 ####[address] [address]Md# [phone] Hematocrit (Bld) [Volume fraction] 39.5 % Normal 35.0-47.0 [facility] Comment on above: Order Comment: Campu s: M Performed By: #### L 200.81995 ####[address] [address]Xp# [phone] Hemoglobin (Bld) [Mass/Vol] 13.4 g/dL Normal 11.5-15.5 [facility] Comment on above: Order Comment: Campu s: M Performed By: #### L 200.01572 ####[facility] [id number] [place] [address] 777[address]No# [phone] IMMATR GRAN ABS 0.20 K/CU MM Normal Less than 2 [facility] Comment on above: Order Comment: Campu s: M Performed By: #### L 200.15632 ####[facility] [address]IHL[address] [place] [address]Mi# [phone] IMMATURE GRAN % 1.0 % Normal Less than 2 [facility] Comment on above: Order Comment: Campu s: M Performed By: #### L 200.92840 ####[facility] [id number] [place], [place] [address]Mc# [phone] LYMPH ABS 1.30 K/CU MM Normal 0.9-4.4 [facility] Comment on above: Order Comment: Campu s: M Performed By: #### L 200.66830 ####[address] [address]Ma# [phone] Lymphocytes/100 WBC (Bld) 5.6 % Low 20-40 [facility] Comment on above: Order Comment: Campu s: M Performed By: #### L 200.86505 ####[address] [address]Wp# [phone] MCHC (RBC) [Mass/Vol] 33.9 g/dL Normal 32.0-36.0 [facility] Comment on above: Order Comment: Campu s: M Performed By: #### L 200.74044 ####[facility] [id number] [place] [address]Fb# [phone] MCV (RBC) [Entitic vol] 84.4 fL Normal 80.0-99.0 [facility] Comment on above: Order Comment: Campu s: M Performed By: #### L 200.03326 ####[facility] [id number] [place] [address] 37[address]Ty# [phone] MONO ABS 0.60 K/CU MM Normal 0.1-1.1 [facility] Comment on above: Order Comment: Campu s: M Performed By: #### L 200.24752 ####[facility] [id number] [place] [address] 429[address]Ur# [phone] Monocytes/100 WBC (Bld) 2.6 % Normal 2-10 [facility] Comment on above: Order Comment: Campu s: M Performed By: #### L 200.31444 ####[facility] [id number] [place], [place] [address]Op# [phone] NEUTROPHIL ABS 20.70 K/CU MM High 2.0-8.3 [facility] Comment on above: Order Comment: Campu s: M Performed By: #### L 200.45369 ####[facility] [id number] [place], [place] [address]Ah# [phone] Neutrophils/100 WBC (Bld) 90.6 % High 45-75 [facility] Comment on above: Order Comment: Campu s: M Performed By: #### L 200.10249 ####[facility] K[address]PIY[address] [place] [address] 109[address]Rd# [phone] Nucleated RBC/100 WBC (Bld) [Ratio] 0.0 % Normal Less than 1 [facility] Comment on above: Order Comment: Campu s: M Performed By: #### L 200.50602 ####[facility] [address]ULGQCNNPO[address] [place] [address] 567[address]Cx# [phone] Platelet mean volume (Bld) [Entitic vol] 13.2 fL High 9.4-12.4 [facility] Comment on above: Order Comment: Campu s: M Performed By: #### L 200.71226 ####[facility] [address]UOVNYYU[address] [place] [address]Qt# [phone] PLT 164 K/CU MM Normal 150-450 [facility] Comment on above: Order Comment: Campu s: M Result Comment: Conf irmed by slide estimate. Performed By: #### L 200.52139 ####[facility] [id number] [place] [address]Op# [phone] PLT EST ADEQUATE Normal [facility] Comment on above: Order Comment: Campu s: M Performed By: #### L 200.70040 ####[facility] H[address]WMAVLKG[address] [place] [address]Nv# [phone] POIK 1+ Normal [facility] Comment on above: Order Comment: Campu s: M Performed By: #### L 200.61028 ####[facility] [id number] [place], [place] [address]Og# [phone] POLY 1+ Normal [facility] Comment on above: Order Comment: Campu s: M Performed By: #### L 200.02663 ####[facility] JEWTOIQUGF5022 [place], [place] [address]Wh# [phone] RBC 4.68 M/CU MM Normal 3.90-5.30 [facility] Comment on above: Order Comment: Campu s: M Performed By: #### L 200.66508 ####[facility] [id number] [place], [place] [address]Pv# [phone] WBC 22.9 K/CUMM High 4.5-11.0 [facility] Comment on above: Order Comment: Campu s: M Performed By: #### L 200.41015 ####[facility] [id number] [place] [address]Xa# [phone] Stacie 10-22-2021 EMERGENCY PHYSICIAN REPORT This is a preliminary report only, as the practitioner review and authentication has not occurred. Normal [facility] ER Normal [facility] GFR ESTon 10-22-2021 IF AMER Greater than 60 Normal [facility] Comment on above: Order Comment: Campu s: M Performed By: #### L 500.08721, L500.79835 ####[facility] [id number] [place], [place] [address]Is# [phone] IF non-AFR AMER Greater than 60 [facility] Comment on above: Order Comment: Campu s: M Performed By: #### L 500.02825, L500.80466 ####[facility] KXWJXKYBRW0986 [place], [place] [address]Jw# [phone] IF AMER Greater than 60 [facility] Comment on above: Order Comment: Campu s: M Performed By: #### L 500.84690, L500.42255, L500.52084, L500.11005 ####[facility] IMSSSHIECR5631 [place], [place] [address]Lr# [phone] IF non-AFR AMER Greater than [address] [facility] Comment on above: Order Comment: Campu s: M Performed By: #### L 500.64844, L500.49296, L500.25970, L500.82786 ####[facility] RDKXGZYSMI4516 [place], [place] [address]Xk# [phone] GLUCOSE METERon 10-22-2021 Glucose [Mass/Vol] 145 mg/dL High 70-115 [facility] Glucose [Mass/Vol] 255 mg/dL High 70-115 [facility] Glucose [Mass/Vol] 232 mg/dL High 70-115 [facility] Glucose [Mass/Vol] 269 mg/dL High 70-115 [facility] Glucose [Mass/Vol] 249 mg/dL High 70-115 [facility] HPon 10-22-2021 HP Normal [facility] LIPASEon 10-22-2021 Lipase [Catalytic activity/Vol] 18 U/L Normal 12-60 [facility] Comment on above: Order Comment: Campu s: M Result Comment: NOTE NEW NORMAL RANGE DUE TO REAGENT CHANGE Performed By: #### L 500.85597, L500.14458, L500.66580, L500.02955 ####[facility] [id number] [place], [place] [address]If# [phone] LIVERon 10-22-2021 Globulin (S) [Mass/Vol] 2.8 g/dL Normal 2.2-4.2 [facility] Comment on above: Order Comment: Campu s: M Performed By: #### L 500.25957, L500.39690, L500.80734, L500.54928 ####[facility] NHMZTWNMFI6747 [place], [place] [address]Ov# [phone] Albumin/Globulin [Mass ratio] 1.54 {ratio} Normal 0.8-2.0 [facility] Comment on above: Order Comment: Campu s: M Performed By: #### L 500.98412, L500.16965, L500.65369, L500.15171 ####[facility] LHQNZTRBCN7281 [place], [place] [address]Qu# [phone] Albumin [Mass/Vol] 4.3 g/dL Normal 3.2-5.0 [facility] Comment on above: Order Comment: Campu s: M Performed By: #### L 500.55184, L500.67458, L500.02418, L500.47677 ####[facility] EIISTEPKLH0005 [place], [place] [address]Hn# [phone] ALK PHOS 100 U/L Normal 45-117 [facility] Comment on above: Order Comment: Campu s: M Performed By: #### L 500.99284, L500.90310, L500.78704, L500.85964 ####[facility] WHNYEILMLH2381 [place], [place] [address]Bu# [phone] ALT [Catalytic activity/Vol] 9 U/L Low 13-61 [facility] Comment on above: Order Comment: Campu s: M Result Comment: RESU LTS MAY BE FALSELY DEPRESSED AFTER THE ADMINISTRATION OFSULFASALAZINE AND/OR SULFAPYRIDINE. Performed By: #### L 500.59499, L500.36376, L500.29289, L500.31212 ####[facility] [id number] [place], [place] [address]Rl# [phone] AST [Catalytic activity/Vol] 12 U/L Normal 8-34 [facility] Comment on above: Order Comment: Campu s: M Result Comment: RESU LTS MAY BE FALSELY DEPRESSED AFTER THE ADMINISTRATION OFSULFASALAZINE AND/OR SULFAPYRIDINE. Performed By: #### L 500.31270, L500.19333, L500.89592, L500.25361 ####[facility] FYMURVDOXJ9452 [place], [place] [address]Wr# [phone] BILI DIRECT 0.3 MG/DL Normal 0.00-0.36 [facility] Comment on above: Order Comment: Campu s: M Result Comment: NOTE NEW NORMAL RANGE DUE TO REAGENT CHANGE Performed By: #### L 500.20916, L500.15299, L500.09036, L500.23376 ####[facility] [id number] [place], [place] [address]Ot# [phone] BILI TOTAL 0.80 MG/DL Normal 0.2-1.0 [facility] Comment on above: Order Comment: Campu s: M Performed By: #### L 500.93825, L500.69120, L500.61063, L500.45180 ####[facility] TEXQSLRNAP0397 [place], [place] [address]Oh# [phone] Protein [Mass/Vol] 7.1 g/dL Normal 6.0-8.5 [facility] Comment on above: Order Comment: Campu s: M Performed By: #### L 500.63437, L500.44377, L500.40375, L500.50848 ####[facility] [id number] [place], [place] [address]Ts# [phone] [id number] 10-22-2021 SARS-CoV-2 (COVID-19) RNA DANIEL+probe Ql (Unsp spec) Negative Invalid Interpretation Code Negative [facility] Comment on above: Order Comment: Campu s: M Result Comment: RESU LTS CALLED TO ALONZO MORALES/EDGRACIA 0106 10/22/21 BY JHOANA PALMERNegative results do not preclude SARS-CoV-2 infection andshould not be used as the sole basis for treatment or otherpatient management decisions. Negative results must becombined with clinical observation, patient history, andepidemiological information.This test was performed by PCR. Performed By: #### L 770.51339 ####[facility] [id number] [place], [place] [address]Hf# [phone] UA COMPLETEon 10-22-2021 UA UROBILINOGEN Negative Normal NORMAL [facility] Comment on above: Order Comment: Campu s: M Performed By: #### L 600.76486 ####[facility] MTMRKPXQCN3675 [place], [place] [address]Lx# [phone] Color (U) YELLOW Normal [facility] Comment on above: Order Comment: Campu s: M Performed By: #### L 600.30596 ####[facility] [id number] [place] [address]Ip# [phone] Glucose (U) [Mass/Vol] mg/dL Normal NORMAL [facility] Comment on above: Order Comment: Campu s: M Performed By: #### L 600.14272 ####[facility] [id number] [place] [address] 65[address]Ek# [phone] Mucus Ql (Urine sed) TRACE Normal NEGATIVE [facility] Comment on above: Order Comment: Campu s: M Performed By: #### L 600.47670 ####[facility] [id number] [place] [address] 45[address]Uq# [phone] SQUAMOUS EPIS 2 EPI/HPF Normal 0-5 [facility] Comment on above: Order Comment: Campu s: M Performed By: #### L 600.65381 ####[facility] UNKCYZJVNW7[address] [place] [address] 39[address]Ro# [phone] UA APPEARANCE CLEAR Normal CLEAR [facility] Comment on above: Order Comment: Campu s: M Performed By: #### L 600.60236 ####[facility] [id number] [place] [address] 28[address]Au# [phone] UA BACTERIA NONE Normal NONE [facility] Comment on above: Order Comment: Campu s: M Performed By: #### L 600.83190 ####[facility] [id number] [place] [address] 82[address]En# [phone] UA BILIRUBIN Negative Normal NEGATIVE [facility] Comment on above: Order Comment: Campu s: M Performed By: #### L 600.53597 ####[facility] [id number] [place], [place] [address]Xx# [phone] UA BLOOD SMALL Normal NEGATIVE [facility] Comment on above: Order Comment: Campu s: M Performed By: #### L 600.23105 ####[facility] [id number] [place], [place] [address]Dx# [phone] UA KETONE 80 Normal NEGATIVE [facility] Comment on above: Order Comment: Campu s: M Performed By: #### L 600.39139 ####[facility] [id number] [place], [place] [address]Wd# [phone] UA LK ESTERASE N Normal NEGATIVE [facility] Comment on above: Order Comment: Campu s: M Performed By: #### L 600.94690 ####[facility] [id number] [place] [address] 417[address]St# [phone] UA NITRITE Negative Normal NEGATIVE [facility] Comment on above: Order Comment: Campu s: M Performed By: #### L 600.36333 ####[facility] [id number] [place] [address] 18[address]Cz# [phone] UA PH 6.0 Normal 5-6 [facility] Comment on above: Order Comment: Campu s: M Performed By: #### L 600.18977 ####[facility] NFBKGWWQVR5034[address] [place] [address] 917[address]Ox# [phone] UA PROTEIN 30 Normal NEGATIVE [facility] Comment on above: Order Comment: Campu s: M Performed By: #### L 600.51643 ####[facility] MNXCMKQMFK1317[address] [place] [address] 20[address]Ul# [phone] UA RBC NONE Low 0-3 [facility] Comment on above: Order Comment: Campu s: M Performed By: #### L 600.73214 ####[facility] [id number] [place] [address]26[address]Vo# [phone] UA SPEC GRAV 1.023 Normal 1.005-1.030 [facility] Comment on above: Order Comment: Campu s: M Performed By: #### L 600.22039 ####[facility] XYAOJKGCQZ8231 [place], [place] [address]Cy# [phone] UA WBC 1 WBC/HPF Normal 0-5 [facility] Comment on above: Order Comment: Campu s: M Performed By: #### L 600.43105 ####[facility] [id number] [place] [address] 19[address]Ra# [phone] VBG PHon 10-22-2021 VBG PH 7.49 MMHG High 7.31-7.41 [facility] Comment on above: Order Comment: Campu s: M Performed By: #### L 100.08880 ####[facility] TEARRMNUHW4[address] [place] [address] 34[address]Uj# [phone] BLOOD CULTUREon 06-09-2021 Bacteria identified Cx Nom (Bld) NO GROWTH AFTER 5 DAYS Normal [facility] Comment on above: Order Comment: Campu s: M Performed By: #### M 050.34238 ####[facility] EMKGSWXJAP9[address] [place] [address] 147[address]Ij# [phone] Bacteria identified Cx Nom (Bld) NO GROWTH AFTER 5 DAYS [facility] Comment on above: Order Comment: Campu s: M Performed By: #### M 050.08122 ####[facility] [id number] [place] [address] 89[address]Hu# [phone] GLUCOSE METERon 06-07-2021 Glucose [Mass/Vol] 44 mg/dL Critically low 70-115 [facility] BLOOD CULTUREon 06-05-2021 Bacteria identified Cx Nom (Bld) NO GROWTH AFTER 5 DAYS Normal [facility] Comment on above: Order Comment: Campu s: M Performed By: #### M 050.64704 ####[facility] [id number] [place] [address] 906[address]Fn# [phone] DISCH.SUMon 06-05-2021 DISCH.SUM Normal [facility] GLUCOSE METERon 06-05-2021 Glucose [Mass/Vol] 104 mg/dL Normal 70-115 [facility] Glucose [Mass/Vol] 83 mg/dL Normal 70-115 [facility] Glucose [Mass/Vol] 105 mg/dL Normal 70-115 [facility] Glucose [Mass/Vol] 177 mg/dL High 70-115 [facility] Glucose [Mass/Vol] 61 mg/dL Low 70-115 [facility] PROG.ENDOon 06-05-2021 PROG.ENDO Normal [facility] Progress Note-Endocrinology Normal [facility] BCID PCRon 06-04-2021 BC ACINETOBACTE Not detected Normal NOT DETECTD [facility] Comment on above: Performed By: #### L 770.33022 ####[facility] [id number] [place], [place] [address]Fs# [phone] BC BETA STREP A Not detected Normal NOT DETECTD [facility] Comment on above: Performed By: #### L 770.97214 ####[facility] [id number] [place], [place] [address]Lk# [phone] BC BETA STREP B Not detected Normal NOT DETECTD [facility] Comment on above: Performed By: #### L 770.06887 ####[facility] [id number] [place], [place] [address]Ni# [phone] BC C ALBICANS Not detected Normal NOT DETECTD [facility] Comment on above: Performed By: #### L 770.97187 ####[facility] [id number] [place], [place] [address]Fv# [phone] BC C GLABRATA Not detected Normal NOT DETECTD [facility] Comment on above: Performed By: #### L 770.83903 ####[facility] IAAYJTCQTV8511 [place], [place] [address]Cl# [phone] BC C KRUSEI Not detected Normal NOT DETECTD [facility] Comment on above: Performed By: #### L 770.95711 ####[facility] [id number] [place], [place] [address]Xl# [phone] BC C PARAPSILOS Not detected Normal NOT DETECTD [facility] Comment on above: Performed By: #### L 770.69603 ####[facility] [id number] [place], [place] [address]Ph# [phone] BC C TROPICALIS Not detected Normal NOT DETECTD [facility] Comment on above: Performed By: #### L 770.94826 ####[facility] [id number] [place], [place] [address]Tb# [phone] BC E COLI Not detected Normal NOT DETECTD [facility] Comment on above: Performed By: #### L 770.81005 ####[facility] NFJZKZSMCJ2642 [place], [place] [address]Or# [phone] BC ENTER CLOACA Not detected Normal NOT DETECTD [facility] Comment on above: Performed By: #### L 770.24484 ####[facility] [id number] [place] [address]Cy# [phone] BC ENTEROCOCCUS Not detected Normal NOT DETECTD [facility] Comment on above: Performed By: #### L 770.01610 ####[facility] [id number] [place], [place] [address]Zk# [phone] BC H.INFLUENZA Not detected Normal NOT DETECTD [facility] Comment on above: Performed By: #### L 770.08825 ####[facility] [id number] [place], [place] [address]Hq# [phone] BC KLEB OXYTOCA Not detected Normal NOT DETECTD [facility] Comment on above: Performed By: #### L 770.69092 ####[facility] [id number] [place], [place] [address]Pj# [phone] BC KLEB PNEUMO Not detected Normal NOT DETECTD [facility] Comment on above: Performed By: #### L 770.36358 ####[facility] [id number] [place], [place] [address]Oe# [phone] BC KPC Not detected Normal NOT DETECTD [facility] Comment on above: Performed By: #### L 770.70327 ####[facility] [id number] [place], [place] [address]Ud# [phone] BC LISTERIA Not detected Normal NOT DETECTD [facility] Comment on above: Performed By: #### L 770.61585 ####[facility] [id number] [place], [place] [address]Kn# [phone] BC MEC A Not detected Normal NOT DETECTD [facility] Comment on above: Performed By: #### L 770.69853 ####[facility] [id number] [place], [place] [address]Mb# [phone] BC N MENINGITID Not detected Normal NOT DETECTD [facility] Comment on above: Performed By: #### L 770.32393 ####[facility] JZEOCMNWSY9437 [place], [place] [address]Wx# [phone] BC PROTEUS SP. Not detected Normal NOT DETECTD [facility] Comment on above: Performed By: #### L 770.61586 ####[facility] [id number] [place], [place] [address]Ti# [phone] BC PSEUDO AERUG Not detected Normal NOT DETECTD [facility] Comment on above: Performed By: #### L 770.49250 ####[facility] [id number] [place], [place] [address]Rr# [phone] BC SERRATIA MAR Not detected Normal NOT DETECTD [facility] Comment on above: Performed By: #### L 770.14827 ####[facility] [id number] [place], [place] [address]Zi# [phone] BC STAPH AUREUS Not detected Normal NOT DETECTD [facility] Comment on above: Performed By: #### L 770.24383 ####[facility] [id number] [place], [place] [address]Vn# [phone] BC STAPH SPE. Not detected Normal NOT DETECTD [facility] Comment on above: Performed By: #### L 770.94592 ####[facility] [id number] [place], [place] [address]Yn# [phone] BC STREP PNEUMO Not detected Normal NOT DETECTD [facility] Comment on above: Performed By: #### L 770.77413 ####[facility] [id number] [place], [place] [address]Aw# [phone] BC STREPTOCOCCU Not detected Normal NOT DETECTD [facility] Comment on above: Performed By: #### L 770.57420 ####[facility] GNEKIRGEMH0879 [place], [place] [address]Rp# [phone] BC VAN A/B Not detected Normal NOT DETECTD [facility] Comment on above: Performed By: #### L 770.05445 ####[facility] [id number] [place], [place] [address]Hf# [phone] ENTEROBACEAE SP Not detected Normal NOT DETECTD [facility] Comment on above: Performed By: #### L 770.07518 ####[facility] [id number] [place], [place] [address]Mr# [phone] BLOOD CULTUREon 06-04-2021 Bacteria identified Cx Nom (Bld) INITIAL POSITIVE BLOOD CULTURE RESULTS CALLED TO MICHELLE RN/8M AND READ BACK BY AT 201206/02/21 BY NANI CARLISLE ORGANISM 1: MICROCOCCUS SP./RELATED GENERA ID TO FOLLOW NOT VIABLE FOR SENSITIVITY Normal [facility] Comment on above: Order Comment: Zach s: M Performed By: #### M [id number] ####[facility] [id number] [place], [place] [address]Oz# [phone] GLUCOSE METERon 06-04-2021 Glucose [Mass/Vol] 161 mg/dL High 70-115 [facility] [place] Glucose [Mass/Vol] 79 mg/dL [facility] 236 mg/dL High 70-115 [facility] [place] Glucose [Mass/Vol] 273 mg/dL High 70-115 [facility] Glucose [Mass/Vol] 221 mg/dL High 70-115 [facility] Glucose [Mass/Vol] 305 mg/dL High 70-115 [facility]04-[facility]21 PROG IMS Normal [facility] Progress Note-Hospitalist Normal [facility] PROG.ENDOon 06-04-2021 PROG.ENDO Normal [facility] Progress Note-Endocrinology Normal [facility] BMPon 06-03-2021 Anion gap [Moles/Vol] 9 mmol/L Normal 5-16 [facility] Comment on above: Order Comment: Campu s: MMinimal Draw: Y Performed By: #### L [id number], L500.82784, L500.09945 ####[facility] [id number] [place], [place] [address]Fm# [phone] Calcium [Mass/Vol] 8.5 mg/dL Normal 8.5-10.5 [facility] Comment on above: Order Comment: Campu s: MMinimal Draw: Y Result Comment: NOTE NEW NORMAL RANGE DUE TO REAGENT CHANGE Performed By: #### L 500.50301, L500.69949, L500.68128 ####[facility] [id number] [place], [place] [address]Eh# [phone] Chloride [Moles/Vol] 109 mmol/L High 98-107 [facility] Comment on above: Order Comment: Campu s: MMinimal Draw: Y Performed By: #### L 500.57490, L500.51684, L500.31662 ####[facility] [id number] [place], [place] [address]Ek# [phone] CO2 [Moles/Vol] 23.0 mmol/L Normal 21-32 [facility] Comment on above: Order Comment: Campu s: MMinimal Draw: Y Performed By: #### L 500.17209, L500.39011, L500.01843 ####[facility] [id number] [place], [place] [address]Az# [phone] Creatinine [Mass/Vol] 0.70 mg/dL Normal 0.510-0.950 [facility] Comment on above: Order Comment: Campu s: MMinimal Draw: Y Result Comment: Cleopatra ents receiving either N-Acetylcysteine (NAC) orMetamizole prior to venipuncture, may have falsely depressedresults. Performed By: #### L 500.51950, L500.93022, L500.72326 ####[facility] [id number] [place], [place] [address]Kt# [phone] Glucose [Mass/Vol] 303 mg/dL High 70-100 [facility] Comment on above: Order Comment: Campu s: MMinimal Draw: Y Result Comment: 70-1 00- Normal Fasting; 100-125 Impaired Fasting; greaterthan 126 on more than one result- Diabetes. ADA guidelines.Results may be falsely elevated after the administration ofSulfapyridine.Results may be falsely depressed after the administration ofSulfasalazine. Performed By: #### L 500.08787, L500.21801, L500.61411 ####[facility] [id number] [place], [place] [address]Rb# [phone] Potassium [Moles/Vol] 4.4 mmol/L Normal 3.5-5.1 [facility] Comment on above: Order Comment: Campu s: MMinimal Draw: Y Result Comment: Slig ht Hemolysis, Result may be affected. Performed By: #### L 500.67297, L500.06169, L500.31916 ####[facility] [id number] [place], [place] [address]Sm# [phone] Sodium [Moles/Vol] 141 mmol/L Normal 136-145 [facility] Comment on above: Order Comment: Campu s: MMinimal Draw: Y Performed By: #### L 500.10789, L500.55160, L500.82305 ####[facility] [id number] [place], [place] [address]Bj# [phone] Urea nitrogen [Mass/Vol] 16 mg/dL Normal 7-26 [facility] [place] Comment on above: Order Comment: Campu s: MMinimal Draw: Y Performed By: #### L 500.48638, L500.59816, L500.51723 ####[facility] PGDXUPIVZP6984 [place], [place] [address]Xb# [phone] Urea nitrogen/Creatinine [Mass ratio] 23 mg/mg Normal 15-24 [facility] Comment on above: Order Comment: Campu s: MMinimal Draw: Y Performed By: #### L 500.99230, L500.08212, L500.04616 ####[facility] [id number] [place], [place] [address]Oz# [phone] CBC W/DIFFon 06-03-2021 BASO ABS 0.00 K/CU MM Normal 0-0.2 [facility] Comment on above: Order Comment: Campu s: MMinimal Draw: Y Performed By: #### L 200.60193 ####[facility] [id number] [place] [address]Gh# [phone] Basophils/100 WBC (Bld) 0.2 % Normal 0-2 [facility] Comment on above: Order Comment: Campu s: MMinimal Draw: Y Performed By: #### L 200.72014 ####[facility] KRIKMQIIRM[address] [place] [address]Vj# [phone] EOS ABS 0.00 K/CU MM Normal 0-0.5 [facility] Comment on above: Order Comment: Campu s: MMinimal Draw: Y Performed By: #### L 200.77256 ####[facility] VJTPZDPRYM[address] [place] [address]Up# [phone] Eosinophils/100 WBC (Bld) 0.3 % Normal 0-5 [facility] Comment on above: Order Comment: Campu s: MMinimal Draw: Y Performed By: #### L 200.85494 ####[facility] LIVDJENXKC[address] [place] [address]Ss# [phone] Erythrocyte distribution width (RBC) [Ratio] 15.1 % High 11-14.5 [facility] Comment on above: Order Comment: Campu s: MMinimal Draw: Y Performed By: #### L 200.06883 ####[facility] AIEJSZVCLR8662 [place], [place] [address]Uj# [phone] Hematocrit (Bld) [Volume fraction] 29.3 % Low 35.0-47.0 [facility] Comment on above: Order Comment: Campu s: MMinimal Draw: Y Performed By: #### L 200.97597 ####[place] [address]Ph# [phone] Hemoglobin (Bld) [Mass/Vol] 9.4 g/dL Low 11.5-15.5 [facility] Comment on above: Order Comment: Campu s: MMinimal Draw: Y Result Comment: Repe ated and verified. Performed By: #### L 200.82367 ####[facility] [id number] [place], [place] [address]Ph# [phone] IMMATR GRAN ABS 0.10 K/CU MM Normal Less than 2 [facility] Comment on above: Order Comment: Campu s: MMinimal Draw: Y Performed By: #### L 200.63148 ####[facility] [id number] [place], [place] [address]Ph# [phone] IMMATURE GRAN % 0.8 % Normal Less than 2 [facility] Comment on above: Order Comment: Campu s: MMinimal Draw: Y Performed By: #### L 200.58421 ####[facility] [id number] [place], [place] [address]Ph# [phone] LYMPH ABS 2.90 K/CU MM Normal 0.9-4.4 [facility] Comment on above: Order Comment: Campu s: MMinimal Draw: Y Performed By: #### L 200.09580 ####[facility] [id number] [place], [place] [address]Ph# [phone] Lymphocytes/100 WBC (Bld) 25.7 % Normal 20-40 [facility] Comment on above: Order Comment: Campu s: MMinimal Draw: Y Performed By: #### L 200.55569 ####[facility] [id number] [place], [place] [address]Et# [phone] MCHC (RBC) [Mass/Vol] 32.1 g/dL Normal 32.0-36.0 [facility] Comment on above: Order Comment: Campu s: MMinimal Draw: Y Performed By: #### L 200.34145 ####[facility] [id number] [place], [place] [address]Ph# [phone] MCV (RBC) [Entitic vol] 87.5 fL Normal 80.0-99.0 [facility] Comment on above: Order Comment: Campu s: MMinimal Draw: Y Performed By: #### L 200.74127 ####[facility] [id number] [place], [place] [address]Ph# [phone] MONO ABS 0.50 K/CU MM Normal 0.1-1.1 [facility] Comment on above: Order Comment: Campu s: MMinimal Draw: Y Performed By: #### L 200.35426 ####[facility] [id number] [place], [place] [address]Ph# [phone] Monocytes/100 WBC (Bld) 4.3 % Normal 2-10 [facility] Comment on above: Order Comment: Campu s: MMinimal Draw: Y Performed By: #### L 200.46090 ####[facility] [id number] [place], [place] [address]Ph# [phone] NEUTROPHIL ABS 7.70 K/CU MM Normal 2.0-8.3 [facility] Comment on above: Order Comment: Campu s: MMinimal Draw: Y Performed By: #### L 200.12052 ####[facility] [id number] [place], [place] [address]Ph# [phone] Neutrophils/100 WBC (Bld) 68.7 % Normal 45-75 [facility] Comment on above: Order Comment: Campu s: MMinimal Draw: Y Performed By: #### L 200.61890 ####[facility] [id number] [place], [place] [address]Pn# [phone] Nucleated RBC/100 WBC (Bld) [Ratio] 0.0 % Normal Less than 1 [facility] Comment on above: Order Comment: Campu s: MMinimal Draw: Y Performed By: #### L 200.01262 ####[facility] [id number] [place], [place] [address]Go# [phone] Platelet mean volume (Bld) [Entitic vol] 11.6 fL Normal 9.4-12.4 [facility] Comment on above: Order Comment: Campu s: MMinimal Draw: Y Performed By: #### L 200.01884 ####[facility] AADIMKANPM1372 [place], [place] [address]Hw# [phone] PLT 166 K/CU MM Normal 150-450 [facility] Comment on above: Order Comment: Campu s: MMinimal Draw: Y Performed By: #### L 200.77467 ####[facility] LOGJLPCAMA8829 [place], [place] [address]Ru# [phone] RBC 3.35 M/CU MM Low 3.90-5.30 [facility] Comment on above: Order Comment: Campu s: MMinimal Draw: Y Performed By: #### L 200.64093 ####[facility] [id number] [place], [place] [address]Uc# [phone] WBC 11.3 K/CUMM High 4.5-11.0 [facility] Comment on above: Order Comment: Campu s: MMinimal Draw: Y Performed By: #### L 200.34149 ####[facility] [id number] [place] [address]Ii# [phone] GFR ESTon 06-03-2021 IF AMER Greater than 60 Normal [facility] Comment on above: Order Comment: Campu s: MMinimal Draw: Y Performed By: #### L 500.02035, L500.29881, L500.27665 ####[facility] CXVBJRGLXZ7089 [place], [place] [address]Lu# [phone] IF non-AFR AMER Greater than 60 Normal [facility] Comment on above: Order Comment: Campu s: MMinimal Draw: Y Performed By: #### L 500.87319, L500.37759, L500.36431 ####[facility] [id number] [place], [place] [address]Bk# [phone] GLUCOSE METERon 06-03-2021 Glucose [Mass/Vol] 227 mg/dL High 70-115 [facility] Glucose [Mass/Vol] 182 mg/dL High 70-115 [facility] Glucose [Mass/Vol] 299 mg/dL High 70-115 [facility] PROG IMSon 06-03-2021 PROG IMS Normal [facility] Progress Note-Hospitalist Normal [facility] PR[facility].ENDOon 06-03-2021 PROG.ENDO Normal [facility] Progress Note-Endocrinology Normal [facility] TSHon 06-03-2021 TSH 6.118 UIU/ML High 0.358-3.740 [facility] Comment on above: Order Comment: Campu s: MMinimal Draw: Y Result Comment: 3rd generation ultra sensitive TSH Performed By: #### L 500.57564, L500.04184, L500.52828 ####[facility] DPAKPZOJVM0021 [place], [place] [address]Uy# [phone] CONS.ENDOon 06-02-2021 CONS.ENDO Normal [facility] [place] CONSULTATION-ENDOCRINO LOGY Normal [facility] GLUCOSE METERon 06-02-2021 Glucose [Mass/Vol] 372 mg/dL High 70-115 [facility] Glucose [Mass/Vol] 255 mg/dL High 70-115 [facility] Glucose [Mass/Vol] 210 mg/dL High 70-115 [facility] Glucose [Mass/Vol] 205 mg/dL High 70-115 [facility] PROG IMSon 06-02-2021 PROG IMS Normal [facility] Progress Note-Hospitalist Normal [facility] BMPon 06-01-2021 Anion gap [Moles/Vol] 23 mmol/L High 5-16 [facility] Comment on above: Order Comment: Campu s: M Performed By: #### L 500.07935, L500.57800 ####[facility] [id number] [place], [place] [address]Rm# [phone] Calcium [Mass/Vol] 9.4 mg/dL Normal 8.5-10.5 [facility] Comment on above: Order Comment: Campu s: M Result Comment: NOTE NEW NORMAL RANGE DUE TO REAGENT CHANGE Performed By: #### L 500.60120, L500.88750 ####[facility] [id number] [place], [place] [address]Rh# [phone] Chloride [Moles/Vol] 103 mmol/L Normal 98-107 [facility] Comment on above: Order Comment: Campu s: M Performed By: #### L 500.92777, L500.10124 ####[facility] ZLJQPLZJSX9297 [place], [place] [address]Gl# [phone] CO2 [Moles/Vol] 11.0 mmol/L Low 21-32 [facility] Comment on above: Order Comment: Campu s: M Result Comment: Delt a check reviewed Performed By: #### L 500.65142, L500.19100 ####[facility] [id number] [place], [place] [address]Vi# [phone] Creatinine [Mass/Vol] 0.71 mg/dL Normal 0.510-0.950 [facility] Comment on above: Order Comment: Campu s: M Result Comment: Cleopatra ents receiving either N-Acetylcysteine (NAC) orMetamizole prior to venipuncture, may have falsely depressedresults. Performed By: #### L 500.05778, L500.55446 ####[facility] [id number] [place], [place] [address]Fu# [phone] Glucose [Mass/Vol] 447 mg/dL High 70-100 [facility] Comment on above: Order Comment: Campu s: M Result Comment: 70-1 00- Normal Fasting; 100-125 Impaired Fasting; greaterthan 126 on more than one result- Diabetes. ADA guidelines.Results may be falsely elevated after the administration ofSulfapyridine.Results may be falsely depressed after the administration ofSulfasalazine. Performed By: #### L 500.75952, L500.72701 ####[facility] NBYANIOBNH6004 [place], [place] [address]We# [phone] Potassium [Moles/Vol] 5.2 mmol/L High 3.5-5.1 [facility] Comment on above: Order Comment: Campu s: M Result Comment: Slig ht Hemolysis, Result may be affected. Performed By: #### L 500.41720, L500.52785 ####[facility] [id number] [place], [place] [address]Hw# [phone] Sodium [Moles/Vol] 137 mmol/L Normal 136-145 [facility] Comment on above: Order Comment: Campu s: M Performed By: #### L 500.13208, L500.00059 ####[facility] [id number] [place], [place] [address]Nr# [phone] Urea nitrogen [Mass/Vol] 20 mg/dL Normal 7-26 [facility] Comment on above: Order Comment: Campu s: M Result Comment: Slig ht Hemolysis, Result may be affected. Performed By: #### L 500.01196, L500.94614 ####[facility] [id number] [place], [place] [address]Ff# [phone] Urea nitrogen/Creatinine [Mass ratio] 28 mg/mg High 15-24 [facility] Comment on above: Order Comment: Campu s: M Performed By: #### L 500.30963, L500.25140 ####[facility] [id number] [place], [place] [address]Ni# [phone] Stacie 06-01-2021 EMERGENCY PHYSICIAN REPORT This is a preliminary report only, as the practitioner review and authentication has not occurred. Normal [facility] ER Normal [facility] GFR ESTon 06-01-2021 IF AMER Greater than 60 [facility] Comment on above: Order Comment: Campu s: M Performed By: #### L 500.44055, L500.07616 ####[facility] [id number] [place], [place] [address]Gl# [phone] IF non-AFR AMER Greater than 60 [facility] Comment on above: Order Comment: Campu s: M Performed By: #### L 500.83353, L500.62878 ####[facility] AVJFNEBUBB6914 [place], [place] [address]Tt# [phone] GLUCOSE METERon 06-01-2021 Glucose [Mass/Vol] 384 mg/dL High 70-115 [facility] Glucose [Mass/Vol] 322 mg/dL High 70-115 [facility] Glucose [Mass/Vol] 550 mg/dL Critically high 70-115 [facility] GLUCOSE METER > 600 Critically high 70-115 [facility] Glucose [Mass/Vol] 450 mg/dL High 70-115 [facility] HP.IMS.ADMon 06-01-2021 Admission-H&P Normal [facility] HP.IMS.ADM [facility] LACTIC ACIDon 06-01-2021 Lactate [Moles/Vol] 3.82 mmol/L High 0.40-2.00 [facility] Comment on above: Performed By: #### L 550.21726 ####[facility] [id number] [place], [place] [address]Um# [phone] PROCAL Aon 06-01-2021 PROCAL A 2.89 NG/ML High 0-0.50 [facility] Comment on above: Order Comment: Zach s: [...] for sepsis based on results obtained fromthe [employer] platform vs the [employer] platform(previous).NOTE NEW NORMAL RANGE DUE TO REAGENT CHANGE Performed By: #### L 550.91022 ####[facility] [id number] [place] [address]Na# [phone] PROG IMSon 06-01-2021 PROG IMS Normal [facility] Progress Note-Hospitalist Normal [facility] UR DRUG ABUSEon 06-01-2021 UR AMPH Negative Normal Eetjps=1411 [facility] Comment on above: Performed By: #### L 600.95295 ####[facility] IBXNAISXBR5209 [place], [place] [address]Wr# [phone] UR JARON Negative Normal Rmmnmm=174 [facility] Comment on above: Performed By: #### L 600.78899 ####[facility] KRLJLCJNNW7779 [place], [place] [address]Dt# [phone] UR TAMRA Negative Normal Bbfxqw=493 [facility] Comment on above: Performed By: #### L 600.51421 ####[facility] NVCIVRRQOM4204 [place], [place] [address]Ah# [phone] UR MONTY/THC Positive Normal Cutoff=50 [facility] Comment on above: Performed By: #### L 600.94070 ####[facility] [id number] [place] [address]Hy# [phone] UR ALISHA Negative Normal Ccpzjl=283 [facility] Comment on above: Performed By: #### L 600.27219 ####[facility] [id number] [place], [place] [address]Lf# [phone] UR OPIAT Positive Normal Iryfcg=589 [facility] Comment on above: Performed By: #### L 600.61080 ####[facility] PKMWWPNUFF0758 [place], [place] [address]Bs# [phone] UR PCP Negative Normal Cutoff=25 [facility] Comment on above: Performed By: #### L 600.42802 ####[address] [address]Hj# [phone] DRAB COMMENT Normal [facility] Comment on above: Result Comment: [employer] results are qualitative, providing apreliminary analytical result. A positive result for anassay should be confirmed by another nonimmunological,reference method. A negative result indicates that theassay material is either not present, or present at levelsbelow the cutoff threshold for the analytical method range(AMR) validation. Performed By: #### L 600.58624 ####[facility] [id number] [place] [address]Ke# [phone] ABGPon 05-31-2021 ABG BE -8.6 MML/L Low -2.0-2.0 [facility] Comment on above: Order Comment: Zach s: M Performed By: #### L 100.08745 ####[facility] TFPBUFANIP4071 [place], [place] [address]Xs# [phone] ABG COHBA 0.4 % Normal 0-10 [facility] Comment on above: Order Comment: Zach s: M Performed By: #### L 100.10624 ####[facility] [id number] [place], [place] [address]Cw# [phone] ABG MET 0.3 % Low 0.4-1.5 [facility] Comment on above: Order Comment: Campu s: M Performed By: #### L 100.30561 ####[facility] ZTYJVQLMRV4170 [place], [place] [address]Mu# [phone] ABG O2 CAPACITY 17.9 mL/dL Normal [facility] Comment on above: Order Comment: Campu s: M Performed By: #### L 100.49692 ####[facility] LIIDGKACCD2985 [place], [place] [address]Np# [phone] ABG O2 CONTENT 17.2 mL/dL Normal 15.7-21.6 [facility] Comment on above: Order Comment: Campu s: M Performed By: #### L 100.87881 ####[facility] [id number] [place] [address]Id# [phone] ABG O2HB SAT 93.9 % Normal 90-100 [facility] Comment on above: Order Comment: Campu s: M Performed By: #### L 100.74359 ####[facility] ECDOBVYJDS4974 [place], [place] [address]Ag# [phone] ABG PCO2 34.2 MMHG Low 35-45 [facility] Comment on above: Order Comment: Campu s: M Performed By: #### L 100.86926 ####[facility] BBHPZYJTVV5639 [place], [place] [address]Ya# [phone] ABG PH 7.31 Low 7.35-7.45 [facility] Comment on above: Order Comment: Campu s: M Performed By: #### L 100.85424 ####[facility] OBAYNEWTFY8416 [place], [place] [address]Zc# [phone] ABG PO2 85.7 MMHG Normal 80-100 [facility] Comment on above: Order Comment: Campu s: M Performed By: #### L 100.42610 ####[facility] WYPORRTBCR7889 [place], [place] [address]Ai# [phone] ABG REDUCED HGB 5.4 % High 0-5 [facility] Comment on above: Order Comment: Campu s: M Performed By: #### L 100.28280 ####[facility] NBUNRNYAFS3130 [place], [place] [address]Ma# [phone] GEM TEST Positive Normal [facility] Comment on above: Order Comment: Campu s: M Performed By: #### L 100.91807 ####[facility] LVRGFUYEPF1727 [place], [place] [address]Xu# [phone] Body temperature 98.6 [degF] Normal [facility] Comment on above: Order Comment: Campu s: M Performed By: #### L 100.54091 ####[facility] [id number] [place] [address]Ge# [phone] EQUIPMENT ROOM AIR Normal [facility] Comment on above: Order Comment: Campu s: M Performed By: #### L 100.17845 ####[address] [address]Fe# [phone] FIO2 21 % Normal [facility] Comment on above: Order Comment: Campu s: M Performed By: #### L 100.87189 ####[facility] [id number] [place] [address]Gk# [phone] HCO3 (Bld) [Moles/Vol] 16.8 mmol/L Low 22-26 [facility] Comment on above: Order Comment: Campu s: M Performed By: #### L 100.38265 ####[facility] [id number] [place] [address]Cc# [phone] Hemoglobin (Bld) [Mass/Vol] 13.0 g/dL Normal 10-16 [facility] Comment on above: Order Comment: Campu s: M Performed By: #### L 100.30266 ####[facility] ANABTVPLRA2270 [place], [place] [address]Ao# [phone] SAMPLE SITE L RADIAL Normal [facility] Comment on above: Order Comment: Campu s: M Performed By: #### L 100.54504 ####[facility] IEESVKQTAL5697 [place], [place] [address]Rf# [phone] SAMPLE TYPE ARTERIAL Normal [facility] Comment on above: Order Comment: Campu s: M Performed By: #### L 100.98823 ####[facility] [id number] [place] [address]Kj# [phone] ABGPEGLAon 05-31-2021 ABG BE -10.1 MML/L Low -2.0-2.0 [facility] Comment on above: Order Comment: Campu s: M Performed By: #### L 100.47799 ####[address] [address]Hy# [phone] ABG COHBA 0.4 % Normal 0-10 [facility] Comment on above: Order Comment: Campu s: M Performed By: #### L 100.41040 ####[address] [address]We# [phone] ABG GLU 317.0 MG/DL High 60-80 [facility] Comment on above: Order Comment: Campu s: M Performed By: #### L 100.68458 ####[address] [address]Un# [phone] ABG MET 0.3 % Low 0.4-1.5 [facility] Comment on above: Order Comment: Campu s: M Performed By: #### L 100.77556 ####[facility] QQQRCTPSQY[address] [place] [address]Ds# [phone] ABG O2 CAPACITY 15.6 mL/dL Normal [facility] Comment on above: Order Comment: Campu s: M Performed By: #### L 100.70818 ####[facility] [id number] [place] [address]Jg# [phone] ABG O2 CONTENT 11.1 mL/dL Low 15.7-21.6 [facility] Comment on above: Order Comment: Campu s: M Performed By: #### L 100.01600 ####[facility] CAVKSKAGVA2929 [place], [place] [address]Zj# [phone] ABG O2HB SAT 69.7 % Critically low 90-100 [facility] Comment on above: Order Comment: Campu s: M Performed By: #### L 100.29986 ####[facility] [id number] [place], [place] [address]Nd# [phone] ABG PCO2 19.0 MMHG Critically low 35-45 [facility] Comment on above: Order Comment: Campu s: M Result Comment: CRIT ICAL VALUE(S) VERIFIED AND HAND DELIVERED TO AND READBACK BY DR CORTES AT 1829 05/31/21 BY ADAM CHOE Performed By: #### L [id number] ####[facility] [id number] [place], [place] [address]Gq# [phone] ABG PH 7.43 Normal 7.35-7.45 [facility] Comment on above: Order Comment: Campu s: M Performed By: #### L 100.22311 ####[facility] [id number] [place], [place] [address]Ed# [phone] ABG PO2 37.4 MMHG Critically low 80-100 [facility] Comment on above: Order Comment: Campu s: M Performed By: #### L 100.05792 ####[facility] [id number] [place], [place] [address]Ub# [phone] ABG REDUCED HGB 29.6 % Critically high 0-5 [facility] Comment on above: Order Comment: Campu s: M Performed By: #### L 100.05436 ####[facility] [id number] [place], [place] [address]Rg# [phone] GEM TEST N/A Normal [facility] Comment on above: Order Comment: Campu s: M Performed By: #### L 100.39544 ####[facility] [id number] [place], [place] [address]Xp# [phone] Body temperature 98.6 [degF] Normal [facility] Comment on above: Order Comment: Campu s: M Performed By: #### L 100.91257 ####[facility] [id number] [place], [place] [address]Io# [phone] EQUIPMENT ROOM AIR Normal [facility] Comment on above: Order Comment: Campu s: M Performed By: #### L 100.53634 ####[facility] NQSF[address] [place] [address] 385[address]Jo# [phone] HCO3 (Bld) [Moles/Vol] 12.2 mmol/L Low 22-26 M [facility] Comment on above: Order Comment: Campu s: M Performed By: #### L 100.32988 ####[address] [address]Nx# [phone] Hemoglobin (Bld) [Mass/Vol] 11.3 g/dL Normal 10-16 [facility] Comment on above: Order Comment: Campu s: M Performed By: #### L 100.10190 ####[facility] [id number] [place] [address]Ki# [phone] IONIZED CA 0.95 MMOL/L Low 1.13-1.32 [facility] Comment on above: Order Comment: Campu s: M Performed By: #### L 100.37608 ####[facility] GNGADENYKM[address] [place] [address]Ch# [phone] LACTATE BLOOD 2.01 MMOL/L High 0.40-2.00 [facility] Comment on above: Order Comment: Campu s: M Performed By: #### L 100.77624 ####[facility] VOHARVOYNN[address] [place] [address]Nw# [phone] Potassium [Moles/Vol] 2.7 mmol/L Critically low 3.5-5.0 [facility] Comment on above: Order Comment: Campu s: M Performed By: #### L 100.79828 ####[facility] WEGCIQJPVG0438 [place], [place] [address]Gp# [phone] RESP. RATE 30 Normal [facility] Comment on above: Order Comment: Campu s: M Performed By: #### L 100.08043 ####[facility] ZCRVQXBNGJ2817 [place], [place] [address]Pv# [phone] SAMPLE SITE R BRACHIAL Normal [facility] Comment on above: Order Comment: Campu s: M Performed By: #### L 100.50248 ####[facility] ADRERNRSNF[address] [place] [address]Sn# [phone] SAMPLE TYPE ARTERIAL Normal [facility] Comment on above: Order Comment: Campu s: M Performed By: #### L 100.64509 ####[facility] SSPDDMBVZK[address] [place] [address] 9[address]Uz# [phone] Sodium [Moles/Vol] 140 mmol/L Normal 136-148 [facility] Comment on above: Order Comment: Campu s: M Performed By: #### L 100.58928 ####[facility] EJEUKBWOKJ[address] [place] [address]Nt# [phone] BMPon 05-31-2021 Anion gap [Moles/Vol] 16 mmol/L Normal 5-16 [facility] Comment on above: Order Comment: Campu s: M Performed By: #### L 500.02201, L500.13545, L500.64947, L500.30852 ####[facility] JYGOMLMEZJ9869 [place], [place] [address]Dv# [phone] Calcium [Mass/Vol] 9.9 mg/dL Normal 8.5-10.5 [facility] Comment on above: Order Comment: Campu s: M Result Comment: NOTE NEW NORMAL RANGE DUE TO REAGENT CHANGE Performed By: #### L 500.04208, L500.57519, L500.40126, L500.61032 ####[facility] RXMHZPHLVU9476 [place], [place] [address]Sk# [phone] Chloride [Moles/Vol] 105 mmol/L Normal 98-107 [facility] Comment on above: Order Comment: Benjiu s: M Performed By: #### L 500.51903, L500.74424, L500.49575, L500.97800 ####[facility] WQYCJFMTWV8766 [place], [place] [address]Go# [phone] CO2 [Moles/Vol] 16.0 mmol/L Low 21-32 [facility] Comment on above: Order Comment: Benjiu s: M Performed By: #### L 500.92009, L500.89218, L500.20156, L500.03929 ####[facility] PROLHFKBXL7360 [place], [place] [address]Ul# [phone] Creatinine [Mass/Vol] 0.63 mg/dL Normal 0.510-0.950 [facility] Comment on above: Order Comment: Benjiu s: M Result Comment: Cleopatra ents receiving either N-Acetylcysteine (NAC) orMetamizole prior to venipuncture, may have falsely depressedresults. Performed By: #### L 500.32860, L500.05477, L500.24654, L500.66202 ####[facility] NKRCDDHQXI8890 [place], [place] [address]Ly# [phone] Glucose [Mass/Vol] 422 mg/dL High 70-100 [facility] Comment on above: Order Comment: Benjiu s: M Result Comment: 70-1 00- Normal Fasting; 100-125 Impaired Fasting; greaterthan 126 on more than one result- Diabetes. ADA guidelines.Results may be falsely elevated after the administration ofSulfapyridine.Results may be falsely depressed after the administration ofSulfasalazine. Performed By: #### L 500.78111, L500.81407, L500.50215, L500.05721 ####[facility] AXKIPLEUVW7146 [place], [place] [address]Jx# [phone] Potassium [Moles/Vol] 4.4 mmol/L Normal 3.5-5.1 [facility] Comment on above: Order Comment: Campu s: M Result Comment: Slig ht Hemolysis, Result may be affected. Performed By: #### L 500.12654, L500.87979, L500.97438, L500.16327 ####[facility] EZVGLCASYZ1512 [place], [place] [address]Ni# [phone] Sodium [Moles/Vol] 137 mmol/L Normal 136-145 [facility] Comment on above: Order Comment: Campu s: M Performed By: #### L 500.81193, L500.80352, L500.64070, L500.66291 ####[facility] YTEUYXXKST4782 [place], [place] [address]Jy# [phone] Urea nitrogen [Mass/Vol] 17 mg/dL Normal 7-26 [facility] Comment on above: Order Comment: Campu s: M Performed By: #### L 500.29400, L500.15205, L500.71758, L500.75904 ####[facility] HPSARZUBON6459 [place], [place] [address]Aj# [phone] Urea nitrogen/Creatinine [Mass ratio] 27 mg/mg High 15-24 [facility] Comment on above: Order Comment: Campu s: M Performed By: #### L 500.60576, L500.25862, L500.92141, L500.36477 ####[facility] MMYFSZPXJB3708 [place], [place] [address]Qc# [phone] CBC W/DIFFon 05-31-2021 BASO ABS 0.00 K/CU MM Normal 0-0.2 [facility] Comment on above: Order Comment: Campu s: M Performed By: #### L 200.30487 ####[facility] OCTEPTKZTR[address] [place] [address]Ge# [phone] Basophils/100 WBC (Bld) 0.2 % Normal 0-2 [facility] Comment on above: Order Comment: Campu s: M Performed By: #### L 200.76242 ####[facility] NVWYZMUXGP0442 [place], [place] [address]Rb# [phone] EOS ABS 0.00 K/CU MM Normal 0-0.5 [facility] Comment on above: Order Comment: Campu s: M Performed By: #### L 200.15871 ####[facility] WBZYUAZFOH[address] [place] [address]Kv# [phone] Eosinophils/100 WBC (Bld) 0.0 % Normal 0-5 [facility] Comment on above: Order Comment: Campu s: M Performed By: #### L 200.80332 ####[place] [address]50[address]Ph# [phone] Erythrocyte distribution width (RBC) [Ratio] 14.1 % Normal 11-14.5 [facility] Comment on above: Order Comment: Campu s: M Performed By: #### L 200.47084 ####[facility] BEFKBPRAXA[address] [place], [place] [address]Ph# [phone] Hematocrit (Bld) [Volume fraction] 39.5 % Normal 35.0-47.0 [facility] Comment on above: Order Comment: Campu s: M Performed By: #### L 200.94805 ####[facility] DFUVTLDDUC8980[address] [place] [address]Tr# [phone] Hemoglobin (Bld) [Mass/Vol] 13.1 g/dL Normal 11.5-15.5 [facility] Comment on above: Order Comment: Campu s: M Performed By: #### L 200.83035 ####[facility] TWLNQGKXEN354[address] [place], [place] [address]Ph# [phone] IMMATR GRAN ABS 0.20 K/CU MM Normal Less than 2 [facility] Comment on above: Order Comment: Campu s: M Performed By: #### L 200.54087 ####[facility] TYNLCTCKQR6947[address] [place], [place] [address]Ph# [phone] IMMATURE GRAN % 0.8 % Normal Less than 2 [facility] Comment on above: Order Comment: Campu s: M Performed By: #### L 200.60886 ####[facility] LBHWANVJEE6[address] [place] [address]Lh# [phone] LYMPH ABS 1.10 K/CU MM Normal 0.9-4.4 [facility] Comment on above: Order Comment: Campu s: M Performed By: #### L 200.95283 ####[facility] NGEKPWDMOH[address] [place], [place] [address]Ph# [phone] Lymphocytes/100 WBC (Bld) 4.7 % Low 20-40 [facility] Comment on above: Order Comment: Campu s: M Performed By: #### L 200.12366 ####[address] [address]Pu# [phone] MCHC (RBC) [Mass/Vol] 33.2 g/dL Normal 32.0-36.0 [facility] Comment on above: Order Comment: Campu s: M Performed By: #### L 200.08592 ####[place] [address]Ph# [phone] MCV (RBC) [Entitic vol] 84.9 fL Normal 80.0-99.0 [facility] Comment on above: Order Comment: Campu s: M Performed By: #### L 200.74350 ####[facility] [id number] [place], [place] [address]Ph# [phone] MONO ABS 0.40 K/CU MM Normal 0.1-1.1 [facility] Comment on above: Order Comment: Campu s: M Performed By: #### L 200.87993 ####[facility] WFGETHEVBM39[address] [place] [address] 24[address]Wc# [phone] Monocytes/100 WBC (Bld) 1.8 % Low 2-10 [facility] Comment on above: Order Comment: Campu s: M Performed By: #### L 200.10578 ####[facility] [place], [place] [address]Tn# [phone] NEUTROPHIL ABS 20.90 K/CU MM High 2.0-8.3 [facility] Comment on above: Order Comment: Campu s: M Performed By: #### L 200.67036 ####[facility] WAHZUOEQYA2241 [place], [place] [address]Pf# [phone] Neutrophils/100 WBC (Bld) 92.5 % High 45-75 [facility] Comment on above: Order Comment: Campu s: M Performed By: #### L 200.23192 ####[address] [address]Kp# [phone] Nucleated RBC/100 WBC (Bld) [Ratio] 0.0 % Normal Less than 1 [facility] Comment on above: Order Comment: Campu s: M Performed By: #### L 200.02204 ####[facility] [id number] [place] [address]Bc# [phone] Platelet mean volume (Bld) [Entitic vol] 12.4 fL Normal 9.4-12.4 [facility] Comment on above: Order Comment: Campu s: M Performed By: #### L 200.89652 ####[facility] AEZALHORNH[address] [place] [address] 210[address]Vf# [phone] PLT 211 K/CU MM Normal 150-450 [facility] Comment on above: Order Comment: Campu s: M Performed By: #### L 200.05523 ####[facility] QMELKXFAJW[address] [place] [address]Np# [phone] RBC 4.65 M/CU MM Normal 3.90-5.30 [facility] Comment on above: Order Comment: Campu s: M Performed By: #### L 200.46052 ####[facility] SJEWSMSBKH[address] [place] [address]Fy# [phone] WBC 22.6 K/CUMM High 4.5-11.0 [facility] Comment on above: Order Comment: Campu s: M Performed By: #### L 200.04181 ####[facility] RIQLILVAOK7006 [place], [place] [address]Af# [phone] CT ABD/PEL W IV CONTRAST ONL Yon 05-31-2021 CT ABD/PEL W IV CONTRAST ONLY Normal [facility] [place] GFR ESTon 05-31-2021 IF AMER Greater than 60 Normal [facility] Comment on above: Order Comment: Campu s: M Performed By: #### L 500.05640, L500.11593, L500.38709, L500.69399 ####[facility] FFLNVSPHWP9972 [place], [place] [address]Nt# [phone] IF non-AFR AMER Greater than 60 Normal [facility] Comment on above: Order Comment: Campu s: M Performed By: #### L 500.11128, L500.01440, L500.58736, L500.53560 ####[facility] ZTIJAICCVS1474 [place], [place] [address]Ia# [phone] GLUCOSE METERon 05-31-2021 Glucose [Mass/Vol] 405 mg/dL High 70-115 [facility] LACTATE BLOODon 05-31-2021 LACTATE BLOOD 3.32 MMOL/L High 0.40-2.00 [facility] Comment on above: Order Comment: Campu s: M Performed By: #### L 550.09368 ####[facility] YLSJUVRMJG4084 [place], [place] [address]Xf# [phone] LIPASEon 05-31-2021 Lipase [Catalytic activity/Vol] 18 U/L Normal 12-60 [facility] Comment on above: Order Comment: Campu s: M Result Comment: NOTE NEW NORMAL RANGE DUE TO REAGENT CHANGE Performed By: #### L 500.20820, L500.63382, L500.08882, L500.90985 ####[facility] PYUZXVUOAU1631 [place], [place] [address]Xy# [phone] LIVERon 05-31-2021 Albumin [Mass/Vol] 4.3 g/dL Normal 3.2-5.0 [facility] Comment on above: Order Comment: Benjiu s: M Performed By: #### L 500.48009, L500.38604, L500.53636, L500.68174 ####[facility] RZJCXHOJMX1743 [place], [place] [address]If# [phone] Albumin/Globulin [Mass ratio] 1.4 {ratio} Normal 0.8-2.0 [facility] Comment on above: Order Comment: Campu s: M Performed By: #### L 500.61435, L500.81415, L500.72000, L500.89129 ####[facility] CHCIRIIUWU8135 [place], [place] [address]Bz# [phone] ALK PHOS 89 U/L Normal 45-117 [facility] Comment on above: Order Comment: Benjiu s: M Performed By: #### L 500.13311, L500.16911, L500.37683, L500.46090 ####[facility] IPZSXHWKTX0810 [place], [place] [address]Nj# [phone] ALT [Catalytic activity/Vol] 11 U/L Low 13-61 [facility] Comment on above: Order Comment: Benjiu s: M Result Comment: RESU LTS MAY BE FALSELY DEPRESSED AFTER THE ADMINISTRATION OFSULFASALAZINE AND/OR SULFAPYRIDINE. Performed By: #### L 500.10335, L500.11297, L500.01470, L500.00600 ####[facility] [id number] [place], [place] [address]Fz# [phone] AST [Catalytic activity/Vol] 16 U/L Normal 8-34 [facility] Comment on above: Order Comment: Benjiu s: M Result Comment: RESU LTS MAY BE FALSELY DEPRESSED AFTER THE ADMINISTRATION OFSULFASALAZINE AND/OR SULFAPYRIDINE. Performed By: #### L 500.52749, L500.73578, L500.71704, L500.18245 ####[facility] PNREUBAWVH9164 [place], [place] [address]Qe# [phone] BILI DIRECT 0.3 MG/DL Normal 0.00-0.36 [facility] Comment on above: Order Comment: Campu s: M Result Comment: NOTE NEW NORMAL RANGE DUE TO REAGENT CHANGE Performed By: #### L 500.75036, L500.21832, L500.29660, L500.78258 ####[facility] LVKZBYIYPI2217 [place], [place] [address]Rj# [phone] BILI TOTAL 1.00 MG/DL Normal 0.2-1.0 [facility] Comment on above: Order Comment: Campu s: M Performed By: #### L 500.91440, L500.41956, L500.81922, L500.25591 ####[facility] NJPJNCJCCF1400 [place], [place] [address]Df# [phone] Globulin (S) [Mass/Vol] 3.0 g/dL Normal 2.2-4.2 [facility] Comment on above: Order Comment: Campu s: M Performed By: #### L 500.73049, L500.84241, L500.10685, L500.28550 ####[facility] TJTKZWQRTI5781 [place], [place] [address]Pi# [phone] Protein [Mass/Vol] 7.3 g/dL Normal 6.0-8.5 [facility] Comment on above: Order Comment: Campu s: M Performed By: #### L 500.20577, L500.43767, L500.89502, L500.86515 ####[facility] [address]QCBWBWFHP[address] [place] [address]Cm# [phone] PORTABLE CHESTon 05-31-2021 PORTABLE CHEST Normal [facility] [id number] 05-31-2021 SARS-CoV-2 (COVID-19) RNA DANIEL+probe Ql (Unsp spec) Negative Invalid Interpretation Code Negative [facility] Comment on above: Order Comment: Campu s: M Result Comment: RESU LTS CALLED TO Harshil IZAGUIRRE, UA/EDAT 205305/31/21 BY JHOANA PALMERNegative results do not preclude SARS-CoV-2 infection andshould not be used as the sole basis for treatment or otherpatient management decisions. Negative results must becombined with clinical observation, patient history, andepidemiological information.This test was performed by PCR. Performed By: #### L 770.67114 ####[facility] [id number] [place], [place] [address]Sx# [phone] UA COMPLETEon 05-31-2021 Color (U) Straw Normal [facility] Comment on above: Order Comment: Campu s: M Performed By: #### L 600.63329 ####[address] [address]Mr# [phone] Glucose (U) [Mass/Vol] 500 mg/dL Normal NORMAL [facility] Comment on above: Order Comment: Campu s: M Performed By: #### L 600.54571 ####[facility] IUHZUNJCYI[address] [place] [address]Hg# [phone] UA APPEARANCE Clear Normal CLEAR [facility] Comment on above: Order Comment: Campu s: M Performed By: #### L 600.19687 ####[facility] CWEQAKUION[address] [place] [address]Ir# [phone] UA BILIRUBIN Negative Normal NEGATIVE [facility] Comment on above: Order Comment: Campu s: M Performed By: #### L 600.09296 ####[facility] [id number] [place] [address]Vw# [phone] UA BLOOD Negative Normal NEGATIVE [facility] Comment on above: Order Comment: Campu s: M Performed By: #### L 600.12658 ####[facility] DAWXTWMJCE[address] [place] [address]Wi# [phone] UA KETONE 80 Normal NEGATIVE [facility] Comment on above: Order Comment: Campu s: M Performed By: #### L 600.28616 ####[facility] [id number] [place], [place] [address]Yp# [phone] UA LK ESTERASE Negative Normal NEGATIVE [facility] Comment on above: Order Comment: Campu s: M Performed By: #### L 600.00409 ####[facility] [id number] [place], [place] [address]Am# [phone] UA NITRITE Negative Normal NEGATIVE [facility] Comment on above: Order Comment: Campu s: M Performed By: #### L 600.97797 ####[facility] [id number] [place] [address]Jj# [phone] UA PH 6.0 Normal - [facility] Comment on above: Order Comment: Campu s: M Performed By: #### L 600.91501 ####[address] [address]Ei# [phone] UA PROTEIN Negative Normal NEGATIVE [facility] Comment on above: Order Comment: Campu s: M Performed By: #### L 600.24016 ####[facility] CQNHZEVZCY[address] [place] [address]Pn# [phone] UA SPEC GRAV 1.030 Normal 1.005-1.030 [facility] Comment on above: Order Comment: Campu s: M Performed By: #### L 600.55327 ####[facility] EEWOMXWBQZ[address] [place] [address]Ho# [phone] UA UROBILINOGEN Negative Normal NORMAL [facility] Comment on above: Order Comment: Campu s: M Performed By: #### L 600.00301 ####[facility] [id number] [place] [address]Wb# [phone] BMPon 04-15-2021 Anion gap [Moles/Vol] 14 mmol/L Normal - [facility] Comment on above: Order Comment: Campu s: M Performed By: #### L 500.83014, L500.88948, L500.35935, L500.45236 ####[facility] DEQXEMCXSR6724 [place], [place] [address]Dg# [phone] Calcium [Mass/Vol] 9.9 mg/dL Normal 8.5-10.5 [facility] Comment on above: Order Comment: Campu s: M Result Comment: NOTE NEW NORMAL RANGE DUE TO REAGENT CHANGE Performed By: #### L 500.87549, L500.00418, L500.76483, L500.17964 ####[facility] OBRBZPHAWG0139 [place], [place] [address]Ym# [phone] Chloride [Moles/Vol] 96 mmol/L Low 98-107 [facility] Comment on above: Order Comment: Campu s: M Performed By: #### L 500.50599, L500.35306, L500.76320, L500.16647 ####[facility] UHSBDTHJUK8542 [place], [place] [address]Gi# [phone] CO2 [Moles/Vol] 22.0 mmol/L Normal 21-32 [facility] Comment on above: Order Comment: Campu s: M Performed By: #### L 500.25315, L500.90689, L500.22869, L500.37427 ####[facility] IPHPBAANHO4742 [place], [place] [address]Zr# [phone] Creatinine [Mass/Vol] 0.68 mg/dL Normal 0.510-0.950 [facility] Comment on above: Order Comment: Campu s: M Result Comment: Cleopatra ents receiving either N-Acetylcysteine (NAC) orMetamizole prior to venipuncture, may have falsely depressedresults. Performed By: #### L 500.61474, L500.39413, L500.01065, L500.50424 ####[facility] MLLJAMFBMZ2277 [place], [place] [address]Rx# [phone] Glucose [Mass/Vol] 306 mg/dL High 70-100 [facility] Comment on above: Order Comment: Campu s: M Result Comment: 70-1 00- Normal Fasting; 100-125 Impaired Fasting; greaterthan 126 on more than one result- Diabetes. ADA guidelines.Results may be falsely elevated after the administration ofSulfapyridine.Results may be falsely depressed after the administration ofSulfasalazine. Performed By: #### L 500.68643, L500.25591, L500.23269, L500.79671 ####[facility] [id number] [place], [place] [address]Pe# [phone] Potassium [Moles/Vol] 3.3 mmol/L Low 3.5-5.1 [facility] Comment on above: Order Comment: Campu s: M Performed By: #### L 500.31329, L500.90199, L500.53811, L500.71479 ####[facility] XHVXODXSHZ8018 [place], [place] [address]Uo# [phone] Sodium [Moles/Vol] 133 mmol/L Low 136-145 [facility] Comment on above: Order Comment: Campu s: M Performed By: #### L 500.18819, L500.82053, L500.09730, L500.78422 ####[facility] TOLUDFTPEV1740 [place], [place] [address]Kl# [phone] Urea nitrogen [Mass/Vol] 21 mg/dL Normal 7-26 [facility] Comment on above: Order Comment: Campu s: M Performed By: #### L 500.46265, L500.84480, L500.38935, L500.44528 ####[facility] UWRPFSAEFW0879 [place], [place] [address]Cg# [phone] Urea nitrogen/Creatinine [Mass ratio] 31 mg/mg High 15-24 [facility] Comment on above: Order Comment: Campu s: M Performed By: #### L 500.04476, L500.83171, L500.56522, L500.33916 ####[facility] [id number] [place], [place] [address]Ag# [phone] Stacie 04-15-2021 EMERGENCY PHYSICIAN REPORT This is a preliminary report only, as the practitioner review and authentication has not occurred. Normal [facility] ER Normal [facility] EMERGENCY PHYSICIAN REPORT This is a preliminary report only, as the practitioner review and authentication has not occurred. Normal [facility] ER Normal [facility] [place] GFR ESTon 04-15-2021 IF AMER Greater than 60 [facility] Comment on above: Order Comment: Campu s: M Performed By: #### L 500.40358, L500.35077, L500.60770, L500.12550 ####[facility] [id number] [place], [place] [address]Qi# [phone] IF non-AFR AMER Greater than 60 [facility] Comment on above: Order Comment: Campu s: M Performed By: #### L 500.54889, L500.25875, L500.57650, L500.08325 ####[facility] [id number] [place], [place] [address]Dy# [phone] GLUCOSE METERon 04-15-2021 Glucose [Mass/Vol] 305 mg/dL High 70-115 [facility] Glucose [Mass/Vol] 197 mg/dL High 70-115 [facility] LACTATE BLOODon 04-15-2021 LACTATE BLOOD 2.16 MMOL/L High 0.40-2.00 [facility] Comment on above: Order Comment: Campu s: M Performed By: #### L 550.39195 ####[facility] [id number] [place], [place] [address]Wt# [phone] LIPASEon 04-15-2021 Lipase [Catalytic activity/Vol] 19 U/L Normal 12-60 [facility] Comment on above: Order Comment: Campu s: M Result Comment: NOTE NEW NORMAL RANGE DUE TO REAGENT CHANGE Performed By: #### L 500.18405, L500.46854, L500.08153, L500.16002 ####[facility] [id number] [place], [place] [address]Ci# [phone] LIVERon 04-15-2021 Albumin [Mass/Vol] 4.2 g/dL Normal 3.2-5.0 [facility] Comment on above: Order Comment: Campu s: M Performed By: #### L 500.85158, L500.49347, L500.86944, L500.05171 ####[facility] [id number] [place], [place] [address]Wb# [phone] Albumin/Globulin [Mass ratio] 1.3 {ratio} Normal 0.8-2.0 [facility] Comment on above: Order Comment: Campu s: M Performed By: #### L 500.07612, L500.24182, L500.87218, L500.18149 ####[facility] [id number] [place], [place] [address]Yc# [phone] ALK PHOS 102 U/L Normal 45-117 [facility] Comment on above: Order Comment: Campu s: M Performed By: #### L 500.54863, L500.68273, L500.22225, L500.02634 ####[facility] [id number] [place], [place] [address]Xc# [phone] ALT [Catalytic activity/Vol] 11 U/L Low 13-61 [facility] Comment on above: Order Comment: Campu s: M Result Comment: RESU LTS MAY BE FALSELY DEPRESSED AFTER THE ADMINISTRATION OFSULFASALAZINE AND/OR SULFAPYRIDINE. Performed By: #### L 500.38902, L500.51652, L500.71861, L500.33162 ####[facility] [id number] [place], [place] [address]Aa# [phone] AST [Catalytic activity/Vol] 13 U/L Normal 8-34 [facility] Comment on above: Order Comment: Campu s: M Result Comment: RESU LTS MAY BE FALSELY DEPRESSED AFTER THE ADMINISTRATION OFSULFASALAZINE AND/OR SULFAPYRIDINE. Performed By: #### L 500.94172, L500.82033, L500.68821, L500.88772 ####[facility] [id number] [place], [place] [address]Cn# [phone] BILI DIRECT 0.3 MG/DL Normal 0.00-0.36 [facility] Comment on above: Order Comment: Campu s: M Result Comment: NOTE NEW NORMAL RANGE DUE TO REAGENT CHANGE Performed By: #### L 500.33861, L500.92268, L500.97844, L500.49627 ####[facility] [id number] [place], [place] [address]Wy# [phone] BILI TOTAL 1.10 MG/DL High 0.2-1.0 [facility] Comment on above: Order Comment: Campu s: M Performed By: #### L 500.02380, L500.68643, L500.12155, L500.66649 ####[facility] [id number] [place], [place] [address]Iq# [phone] Globulin (S) [Mass/Vol] 3.3 g/dL Normal 2.2-4.2 [facility] Comment on above: Order Comment: Campu s: M Performed By: #### L 500.75588, L500.79571, L500.43966, L500.97703 ####[facility] [id number] [place], [place] [address]Dt# [phone] Protein [Mass/Vol] 7.5 g/dL Normal 6.0-8.5 [facility] Comment on above: Order Comment: Campu s: M Performed By: #### L 500.88695, L500.85488, L500.44673, L500.51304 ####[facility] [id number] [place], [place] [address]Go# [phone] UA COMPLETEon 04-15-2021 Color (U) Yellow Normal [facility] Comment on above: Order Comment: Campu s: M Performed By: #### L 600.22233 ####[facility] [id number] [place], [place] [address]Fk# [phone] Glucose (U) [Mass/Vol] 500 mg/dL Normal NORMAL [facility] Comment on above: Order Comment: Campu s: M Performed By: #### L 600.12560 ####[facility] [id number] [place], [place] [address]Ku# [phone] Mucus Ql (Urine sed) TRACE Normal NEGATIVE [facility] Comment on above: Order Comment: Campu s: M Performed By: #### L 600.44662 ####[facility] [id number] [place] [address]Nf# [phone] SQUAMOUS EPIS 2 EPI/HPF Normal 0-5 [facility] Comment on above: Order Comment: Campu s: M Performed By: #### L 600.91108 ####[address] [address]Xx# [phone] UA APPEARANCE Clear Normal CLEAR [facility] Comment on above: Order Comment: Campu s: M Performed By: #### L 600.13129 ####[place] [address]Ph# [phone] UA BACTERIA TRACE Normal NONE [facility] Comment on above: Order Comment: Campu s: M Performed By: #### L 600.64592 ####[address] [address]Mf# [phone] UA BILIRUBIN Negative Normal NEGATIVE [facility] Comment on above: Order Comment: Campu s: M Performed By: #### L 600.96710 ####[facility] [id number] [place] [address]Lp# [phone] UA BLOOD Negative Normal NEGATIVE [facility] Comment on above: Order Comment: Campu s: M Performed By: #### L 600.07453 ####[facility] [id number] [place] [address]Qk# [phone] UA KETONE 80 Normal NEGATIVE [facility] Comment on above: Order Comment: Campu s: M Performed By: #### L 600.48813 ####[facility] [id number] [place] [address]Sh# [phone] UA LK ESTERASE Negative Normal NEGATIVE [facility] Comment on above: Order Comment: Campu s: M Performed By: #### L 600.16654 ####[facility] [id number] [place] [address]Ed# [phone] UA NITRITE Negative Normal NEGATIVE [facility] Comment on above: Order Comment: Campu s: M Performed By: #### L 600.69061 ####[facility] [id number] [place] [address]Ub# [phone] UA PH 6.0 Normal 5-6 [facility] Comment on above: Order Comment: Campu s: M Performed By: #### L 600.39931 ####[address] [address]Mp# [phone] UA PROTEIN 30 Normal NEGATIVE [facility] Comment on above: Order Comment: Campu s: M Performed By: #### L 600.23781 ####[facility] [id number] [place] [address]Zw# [phone] UA RBC 1 RBC/HPF Normal 0-3 [facility] Comment on above: Order Comment: Campu s: M Performed By: #### L 600.22149 ####[address] [address]Uv# [phone] UA SPEC GRAV 1.017 Normal 1.005-1.030 [facility] Comment on above: Order Comment: Campu s: M Performed By: #### L 600.33641 ####[facility] [id number] [place] [address]Sv# [phone] UA UROBILINOGEN Negative Normal NORMAL [facility] Comment on above: Order Comment: Campu s: M Performed By: #### L 600.40262 ####[facility] [id number] [place] [address]Fn# [phone] UA WBC 6 WBC/HPF High 0-5 [facility] Comment on above: Order Comment: Campu s: M Performed By: #### L 600.64796 ####[facility] [id number] [place], [place] [address]Cl# [phone] BMPon 03-17-2021 Anion gap [Moles/Vol] 16 mmol/L Normal 5-16 [facility] [place] Comment on above: Order Comment: Campu s: M Performed By: #### L 500.38503, L500.04001 ####[facility] [id number] [place], [place] [address]Ku# [phone] Calcium [Mass/Vol] 10.0 mg/dL Normal 8.5-10.5 [facility] Comment on above: Order Comment: Campu s: M Result Comment: NOTE NEW NORMAL RANGE DUE TO REAGENT CHANGE Performed By: #### L 500.21389, L500.52271 ####[facility] [id number] [place], [place] [address]Ji# [phone] Chloride [Moles/Vol] 102 mmol/L Normal 98-107 [facility] Comment on above: Order Comment: Campu s: M Performed By: #### L 500.75321, L500.72900 ####[facility] [id number] [place], [place] [address]Zq# [phone] CO2 [Moles/Vol] 16.0 mmol/L Low 21-32 [facility] Comment on above: Order Comment: Campu s: M Performed By: #### L 500.26190, L500.80407 ####[facility] [id number] [place], [place] [address]Tw# [phone] Creatinine [Mass/Vol] 0.71 mg/dL Normal 0.510-0.950 [facility] [place] Comment on above: Order Comment: Campu s: M Result Comment: Cleopatra ents receiving either N-Acetylcysteine (NAC) orMetamizole prior to venipuncture, may have falsely depressedresults. Performed By: #### L 500.67846, L500.27427 ####[facility] [id number] [place], [place] [address]Ob# [phone] Glucose [Mass/Vol] 418 mg/dL High 70-100 [facility] Comment on above: Order Comment: Campu s: M Result Comment: 70-1 00- Normal Fasting; 100-125 Impaired Fasting; greaterthan 126 on more than one result- Diabetes. ADA guidelines.Results may be falsely elevated after the administration ofSulfapyridine.Results may be falsely depressed after the administration ofSulfasalazine. Performed By: #### L 500.73570, L500.23284 ####[facility] [id number] [place], [place] [address]Aj# [phone] Potassium [Moles/Vol] 4.2 mmol/L Normal 3.5-5.1 [facility] Comment on above: Order Comment: Campu s: M Result Comment: Slig ht Hemolysis, Result may be affected. Performed By: #### L 500.16562, L500.99615 ####[facility] [id number] [place] [address]Is# [phone] Sodium [Moles/Vol] 134 mmol/L Low 136-145 [facility] Comment on above: Order Comment: Campu s: M Performed By: #### L 500.40965, L500.84868 ####[facility] [id number] [place], [place] [address]Rc# [phone] Urea nitrogen [Mass/Vol] 25 mg/dL Normal 7-26 [facility] Comment on above: Order Comment: Campu s: M Performed By: #### L 500.19762, L500.73100 ####[facility] [id number] [place] [address]Uy# [phone] Urea nitrogen/Creatinine [Mass ratio] 35 mg/mg High 15-24 [facility] Comment on above: Order Comment: Campu s: M Performed By: #### L 500.71362, L500.41589 ####[facility] [id number] [place], [place] [address]Jf# [phone] CBC W/DIFFon 03-17-2021 BASO ABS 0.00 K/CU MM Normal 0-0.2 [facility] [place] Comment on above: Order Comment: Campu s: M Performed By: #### L 200.56951 ####[facility] [id number] [place] [address]Fa# [phone] Basophils/100 WBC (Bld) 0.1 % Normal 0-2 [facility] [place] Comment on above: Order Comment: Campu s: M Performed By: #### L 200.46998 ####[place] [address]Ph# [phone] EOS ABS 0.00 K/CU MM Normal 0-0.5 [facility] [place] Comment on above: Order Comment: Campu s: M Performed By: #### L 200.38698 ####[address] [address]Id# [phone] Eosinophils/100 WBC (Bld) 0.0 % Normal 0-5 [facility] [place] Comment on above: Order Comment: Campu s: M Performed By: #### L 200.90639 ####[address] [address]Nw# [phone] Erythrocyte distribution width (RBC) [Ratio] 14.6 % High 11-14.5 [facility] Comment on above: Order Comment: Campu s: M Performed By: #### L 200.49841 ####[place] [address]Ph# [phone] Hematocrit (Bld) [Volume fraction] 37.2 % Normal 35.0-47.0 [facility] Comment on above: Order Comment: Campu s: M Performed By: #### L 200.47293 ####[facility] [id number] [place] [address]Nx# [phone] Hemoglobin (Bld) [Mass/Vol] 12.4 g/dL Normal 11.5-15.5 [facility] Comment on above: Order Comment: Campu s: M Performed By: #### L 200.06180 ####[facility] [id number] [place], [place] [address]Wj# [phone] IMMATR GRAN ABS 0.10 K/CU MM Normal Less than 2 [facility] Comment on above: Order Comment: Campu s: M Performed By: #### L 200.98751 ####[address] [address]Iv# [phone] IMMATURE GRAN % 0.8 % Normal Less than 2 [facility] [place] Comment on above: Order Comment: Campu s: M Performed By: #### L 200.60198 ####[place] [address]Ph# [phone] LYMPH ABS 0.80 K/CU MM Low 0.9-4.4 [facility] Comment on above: Order Comment: Campu s: M Performed By: #### L 200.75881 ####[place] [address]Ph# [phone] Lymphocytes/100 WBC (Bld) 4.5 % Low 20-40 [facility] Comment on above: Order Comment: Campu s: M Performed By: #### L 200.17639 ####[place] [address]Ph# [phone] MCHC (RBC) [Mass/Vol] 33.3 g/dL Normal 32.0-36.0 [facility] Comment on above: Order Comment: Campu s: M Performed By: #### L 200.28678 ####[facility] [id number] [place], [place] [address]Ph# [phone] MCV (RBC) [Entitic vol] 83.2 fL Normal 80.0-99.0 [facility] Comment on above: Order Comment: Campu s: M Performed By: #### L 200.39724 ####[facility] [id number] [place], [place] [address]Ph# [phone] MONO ABS 0.30 K/CU MM Normal 0.1-1.1 [facility] [place] Comment on above: Order Comment: Campu s: M Performed By: #### L 200.73382 ####[facility] [id number] [place], [place] [address]Zc# [phone] Monocytes/100 WBC (Bld) 1.7 % Low 2-10 [facility] Comment on above: Order Comment: Campu s: M Performed By: #### L 200.26500 ####[facility] [id number] [place], [place] [address]Hi# [phone] NEUTROPHIL ABS 16.70 K/CU MM High 2.0-8.3 [facility] Comment on above: Order Comment: Campu s: M Performed By: #### L 200.24762 ####[facility] [id number] [place] [address]Nv# [phone] Neutrophils/100 WBC (Bld) 92.9 % High 45-75 [facility] Comment on above: Order Comment: Campu s: M Performed By: #### L 200.81989 ####[facility] [id number] [place], [place] [address]Aw# [phone] Nucleated RBC/100 WBC (Bld) [Ratio] 0.0 % Normal Less than 1 [facility] Comment on above: Order Comment: Campu s: M Performed By: #### L 200.35123 ####[facility] [id number] [place], [place] [address]Is# [phone] Platelet mean volume (Bld) [Entitic vol] 12.9 fL High 9.4-12.4 [facility] Comment on above: Order Comment: Campu s: M Performed By: #### L 200.30527 ####[facility] [id number] [place], [place] [address]Mt# [phone] PLT 181 K/CU MM Normal 150-450 [facility] Comment on above: Order Comment: Campu s: M Performed By: #### L 200.37450 ####[facility] [id number] [place], [place] [address]Ec# [phone] RBC 4.47 M/CU MM Normal 3.90-5.30 [facility] Comment on above: Order Comment: Campu s: M Performed By: #### L 200.75826 ####[facility] [id number] [place], [place] [address]Ft# [phone] WBC 17.9 K/CUMM High 4.5-11.0 [facility] Comment on above: Order Comment: Campu s: M Performed By: #### L 200.14761 ####[facility] [id number] [place], [place] [address]Km# [phone] Stacie 03-17-2021 EMERGENCY PHYSICIAN REPORT This is a preliminary report only, as the practitioner review and authentication has not occurred. Normal [facility] ER [facility] EMERGENCY PHYSICIAN REPORT This is a preliminary report only, as the practitioner review and authentication has not occurred. Normal [facility] ER Normal [facility] G[facility] ESTon 03-17-2021 IF AMER Greater than 60 [facility] Comment on above: Order Comment: Campu s: M Performed By: #### L 500.86026, L500.58659 ####[facility] [id number] [place], [place] [address]Th# [phone] IF non-AFR AMER Greater than 60 [facility] Comment on above: Order Comment: Campu s: M Performed By: #### L 500.63860, L500.35628 ####[facility] [id number] [place], [place] [address]Ex# [phone] GLUCOSE METERon 03-17-2021 Glucose [Mass/Vol] 333 mg/dL High 70-115 [facility] Glucose [Mass/Vol] 360 mg/dL High 70-115 [facility] VBG PHon 03-17-2021 VBG PH 7.40 MMHG Normal 7.31-7.41 [facility] Comment on above: Order Comment: Campu s: M Performed By: #### L 100.45624 ####[facility] [id number] [place] [address]Ph# [phone] A1C [facility] 02-24-2017 Hemoglobin A1c/Hemoglobin.total mass fraction (Bld) 10.8 % High 4.0-6.0 [facility] Comment on above: Performed By: #### G FR ####[facility], [address] [place], [place] [address] Basic Metabolic Panelon 01-28 BUN/Creatinine Ratio 21.4 mg/mg Normal 10.0-22.0 [facility] Comment on above: Order Comment: CBN Performed By: #### G FR ####[place] [address] Creatinine 0.56 mg/dL Normal 0.50-1.20 [facility] Comment on above: Order Comment: CBN Performed By: #### G FR ####[facility], [address] [place], [place] [address] Calcium 7.8 mg/dL Low 8.4-10.1 [facility] Comment on above: Order Comment: CBN Performed By: #### G FR ####[place] [address] Chloride 107 mmol/L Normal 98-110 [facility] Comment on above: Order Comment: CBN Performed By: #### G FR ####[place] [address] Electrolyte Balance 10.0 mEq/L Normal 4.0-15.0 [facility] Comment on above: Order Comment: CBN Performed By: #### G FR ####[place] [address] Sodium 138 mmol/L Normal 136-145 [facility] Comment on above: Order Comment: CBN Performed By: #### G FR ####[address] [address] Glucose mass conc 289 mg/dL High 70-110 [facility] Comment on above: Order Comment: CBN Performed By: #### G FR ####[facility], [address] [place] [address] CO2 21 mmol/L Low 22-32 [facility] Comment on above: Order Comment: CBN Performed By: #### G FR ####[facility], [address] [place], [place] [address] Urea nitrogen 12.0 mg/dL Normal 8.0-22.0 [facility] Comment on above: Order Comment: CBN Performed By: #### G FR ####[place] [address] Potassium molar conc 3.7 mmol/L Normal 3.5-5.0 [facility] Comment on above: Order Comment: CBN Performed By: #### G FR ####[facility], [address] [place], [place] [address] CBCon 02-24-2017 Basophils/100 WBC Auto (Bld) 0.4 % Normal 0.0-2.5 [facility] Comment on above: Order Comment: CBN Performed By: #### G FR ####[place] [address] Eosinophils/100 leukocytes 1.5 % Normal 0.0-6.0 [facility] Comment on above: Order Comment: CBN Performed By: #### G FR ####[facility], [address] [place] [place] [address] Erythrocyte distribution width Auto Ratio (RBC) 15.1 % Normal 11.5-15.5 [facility] Comment on above: Order Comment: CBN Performed By: #### G FR ####[place] [address] Erythrocytes (RBC) 4.19 10 6/mcL Normal 4.10-5.30 [facility] Comment on above: Order Comment: CBN Performed By: #### G FR ####[facility], [address] [place] [address] Hematocrit (HCT) 35.9 % Normal 34.0-46.0 [facility] Comment on above: Order Comment: CBN Performed By: #### G FR ####[facility], [address] [place] [address] Hemoglobin mass conc (Bld) 11.9 G/dL Low 12.0-16.0 [facility] Comment on above: Order Comment: CBN Performed By: #### G FR ####[facility], [address] [place] [address] Lymphocytes/100 leukocytes 36.7 % Normal 20.0-40.0 [facility] Comment on above: Order Comment: CBN Performed By: #### G FR ####[facility], [address] [place] [address] MCH 28.5 pg Normal 27.0-33.0 [facility] Comment on above: Order Comment: CBN Performed By: #### G FR ####[facility], [address] [place] [address] MCHC mass conc (RBC) 33.2 G/dL Normal 32.0-36.0 [facility] Comment on above: Order Comment: CBN Performed By: #### G FR ####[facility], [address] [place] [address] MCV 85.8 fL Normal 80.0-99.0 [facility] Comment on above: Order Comment: CBN Performed By: #### G FR ####[facility], [address] [place] [address] Monocytes/100 leukocytes 4.9 % Normal 2.0-13.0 [facility] Comment on above: Order Comment: CBN Performed By: #### G FR ####[facility], [address] [place] [address] Neutrophils 4.40 10 3/mcL Normal 1.90-7.90 [facility] Comment on above: Order Comment: CBN Performed By: #### G FR ####[facility], [address] [place] [address] Neutrophils/100 WBC Auto (Bld) 56.5 % Normal 50.0-75.0 [facility] Comment on above: Order Comment: CBN Performed By: #### G FR ####[facility], [address] [place] [address] Platelet mean volume (PMV) 8.0 fL Normal 6.6-10.5 [facility] Comment on above: Order Comment: CBN Performed By: #### G FR ####[facility], [address] [place] [address] Platelets 301 10 3/mcL Normal 150-450 [facility] Comment on above: Order Comment: CBN Performed By: #### G FR ####[facility], [facility] [address] [place] [address] WBC (Leukocytes) 7.70 10 3/mcL Normal 4.50-10.80 [facility] Comment on above: Order Comment: CBN Performed By: #### G FR ####[facility], [facility] [address] [place] [address] Depart Summaryon 02-24-2017 Depart Summary Normal [facility] Discharge Note-Physicianon 0 02-24-2017 Discharge Note-Physician Normal [facility] Glomerular Filtration Rate E stimateon 02-24-2017 eGFR (non-black) mL/min/{1.73_m2} Normal [facility] Comment on above: Order Comment: CBN Result Comment: Davidson kowalski mean GFR = 116 mL/min/1.73 sq.m. for ages 20-29 years. Chronic Kidney Disease: Less than 60 mL/min/1.73 square metersEnd Stage Renal Disease: Less than 15 mL/min/1.73 square meters Performed By: #### G FR ####[facility], [facility] [address] [place] [address] History and Physicalon 02-24 History and Physical Normal [facility] Inpatient Patient Summaryon 02-24-2017 Inpatient Patient Summary Normal [facility] Troponin Ion 02-24-2017 Troponin I.cardiac mass conc ng/mL Normal 0.000-0.040 [facility] Comment on above: Result Comment: Trop onin I reference ranges (05/05/14): 0.00-0.040 ng/mL Negative and non-diagnostic. >0.040 ng/mL Consistent with cardiac damage, increased clinical risk and possibility of myocardial infarction. Serial measurements, a rise & fall in test results, clinical history, appropriate symptoms and/or ECG changes may help assess possibility of [place]. *Other non-acute coronary syndrome conditions such as CHF, myocarditis, pulmonary emboli, sepsis and cardiac surgery could result in myocardial damage and increased troponin levels. NOTE: This is a new and more precise Troponin assay started 05-05-14 Performed By: #### C BC ####[place] [address] B-Hydroxybutyrateon 02-24-20 17 B-Hydroxybutyrate 51.30 mg/dL High 0.20-2.81 [facility] Comment on above: Performed By: #### C BC ####[place] [address] Basic Metabolic Panelon 01-27 BUN/Creatinine Ratio 32.1 mg/mg High 10.0-22.0 [facility] Comment on above: Performed By: #### C BC ####[place] [address] Creatinine 0.53 mg/dL Normal 0.50-1.20 [facility] Comment on above: Performed By: #### C BC ####[place] [address] Calcium 8.0 mg/dL Low 8.4-10.1 [facility] Comment on above: Performed By: #### C BC ####[place] [address] Chloride 109 mmol/L Normal 98-110 [facility] Comment on above: Performed By: #### C BC ####[facility], [address], [place] [address] Electrolyte Balance 15.0 mEq/L Normal 4.0-15.0 [facility] Comment on above: Performed By: #### C BC ####[facility], [address] [place] [address] Sodium 141 mmol/L Normal 136-145 [facility] Comment on above: Performed By: #### C BC ####[facility], [address] [place] [address] CO2 17 mmol/L Low 22-32 [facility] Comment on above: Performed By: #### C BC ####[facility], [address] [place] [address] Glucose mass conc 160 mg/dL High 70-110 [facility] Comment on above: Performed By: #### C BC ####[facility], [address] [place] [address] Urea nitrogen 17.0 mg/dL Normal 8.0-22.0 [facility] Comment on above: Performed By: #### C BC ####[facility], [address] [place] [address] Potassium molar conc 3.9 mmol/L Normal 3.5-5.0 [facility] [facility] [place] Comment on above: Performed By: #### C BC ####[facility], [address] [place] [address]7217 Calcium 7.9 mg/dL Low 8.4-10.1 [facility] Comment on above: Performed By: #### C BC ####[facility], [address] [place] [address] 67148 Chloride 103 mmol/L Normal 98-110 [facility] Comment on above: Performed By: #### C BC ####[facility], [address] [place] [address] 91161 Electrolyte Balance 15.0 mEq/L Normal 4.0-15.0 [facility] Comment on above: Performed By: #### C BC ####[facility], [address] [place] [address] 85108 BUN/Creatinine Ratio 33.3 mg/mg High 10.0-22.0 [facility] Comment on above: Performed By: #### C BC ####[facility], [address] [place] [address] 85234 Creatinine 0.54 mg/dL Normal 0.50-1.20 [facility] Comment on above: Performed By: #### C BC ####[facility], [address] [place] [address] 06305 CO2 19 mmol/L Low 22-32 [facility] Comment on above: Performed By: #### C BC ####[facility], [address] [place] [address] 42686 Glucose mass conc 368 mg/dL High 70-110 [facility] Comment on above: Performed By: #### C BC ####[facility], [address] [place] [address] 70343 Urea nitrogen 18.0 mg/dL Normal 8.0-22.0 [facility] Comment on above: Performed By: #### C BC ####[facility], [address] [place] [address] 06759 Potassium molar conc 4.2 mmol/L Normal 3.5-5.0 [facility] Comment on above: Performed By: #### C BC ####[facility], [address] [place] [address] 96717 Sodium 137 mmol/L Normal 136-145 [facility] Comment on above: Performed By: #### C BC ####[facility], [address] [place] [address] 40699 Glucose mass conc 568 mg/dL Critically high 70-110 [facility] Comment on above: Order Comment: CBN Performed By: #### B MP ####[facility], [address] [place] [address] 18359 BUN/Creatinine Ratio 27.3 mg/mg High 10.0-22.0 [facility] Comment on above: Order Comment: CBN Performed By: #### B MP ####[address] [address] Creatinine 0.77 mg/dL Normal 0.50-1.20 [facility] Comment on above: Order Comment: CBN Performed By: #### B MP ####[facility], [address] [place] [address] 47641 Calcium 10.1 mg/dL Normal 8.4-10.1 [facility] Comment on above: Order Comment: CBN Performed By: #### B MP ####[facility], [facility] [address] [place] [address] 50944 CO2 21 mmol/L Low 22-32 [facility] Comment on above: Order Comment: CBN Performed By: #### B MP ####[facility], [facility] [address] [place] [address] 73128 Electrolyte Balance 19.0 mEq/L High 4.0-15.0 [facility] Comment on above: Order Comment: CBN Performed By: #### B MP ####[facility], [address] [place] [address] 34277 Urea nitrogen 21.0 mg/dL Normal 8.0-22.0 [facility] Comment on above: Order Comment: CBN Performed By: #### B MP ####[facility], [address] [place] [address] 19839 Chloride 89 mmol/L Low 98-110 [facility] Comment on above: Order Comment: CBN Performed By: #### B MP ####[address] [address] Potassium molar conc 4.5 mmol/L Normal 3.5-5.0 [facility] Comment on above: Order Comment: CBN Performed By: #### B MP ####[facility], [address] [place] [address] 98274 Sodium 129 mmol/L Low 136-145 [facility] Comment on above: Order Comment: CBN Performed By: #### B MP ####[facility], [address] [place] [address] 67379 CBCon 02-23-2017 Basophils/100 WBC Auto (Bld) 0.7 % Normal 0.0-2.5 [facility] Comment on above: Order Comment: CBN Performed By: #### C BC ####[facility], [address] [place] [address] 06362 Eosinophils/100 leukocytes 0.7 % Normal 0.0-6.0 [facility] Comment on above: Order Comment: CBN Performed By: #### C BC ####[facility], [address] [place] [address] 00393 Erythrocyte distribution width Auto Ratio (RBC) 14.9 % Normal 11.5-15.5 [facility] Comment on above: Order Comment: CBN Performed By: #### C BC ####[facility], [address] [place] [address] 30687 Erythrocytes (RBC) 5.16 10 6/mcL Normal 4.10-5.30 [facility] Comment on above: Order Comment: CBN Performed By: #### C BC ####[address] [address] Hematocrit (HCT) 44.8 % Normal 34.0-46.0 [facility] Comment on above: Order Comment: CBN Performed By: #### C BC ####[facility], [address] [place] [address] 54656 Hemoglobin mass conc (Bld) 14.7 G/dL Normal 12.0-16.0 [facility] Comment on above: Order Comment: CBN Performed By: #### C BC ####[facility], [address] [place] [address] 18669 Lymphocytes/100 leukocytes 21.2 % Normal 20.0-40.0 [facility] Comment on above: Order Comment: CBN Performed By: #### C BC ####[address] [address] MCH 28.5 pg Normal 27.0-33.0 [facility] Comment on above: Order Comment: CBN Performed By: #### C BC ####[address] [address]60 MCHC mass conc (RBC) 32.8 G/dL Normal 32.0-36.0 [facility] Comment on above: Order Comment: CBN Performed By: #### C BC ####[facility], [address] [place] [address] 23705 MCV 86.9 fL Normal 80.0-99.0 [facility] Comment on above: Order Comment: CBN Performed By: #### C BC ####[facility], [address] [place] [address] 62063 Monocytes/100 leukocytes 3.9 % Normal 2.0-13.0 [facility] Comment on above: Order Comment: CBN Performed By: #### C BC ####[address] [address] Neutrophils 6.10 10 3/mcL Normal 1.90-7.90 [facility] Comment on above: Order Comment: CBN Performed By: #### C BC ####[address] [address] Neutrophils/100 WBC Auto (Bld) 73.5 % Normal 50.0-75.0 [facility] Comment on above: Order Comment: CBN Performed By: #### C BC ####[address] [address] Platelet mean volume (PMV) 7.9 fL Normal 6.6-10.5 [facility] Comment on above: Order Comment: CBN Performed By: #### C BC ####[facility], [address] [place] [address] 87100 Platelets 316 10 3/mcL Normal 150-450 [facility] Comment on above: Order Comment: CBN Performed By: #### C BC ####[address] [address] WBC (Leukocytes) 8.30 10 3/mcL Normal 4.50-10.80 [facility] Comment on above: Order Comment: CBN Performed By: #### C BC ####[address] [place] [address] Culture Bloodon 02-23-2017 Culture Blood Name : KATHLEEN VILLA Brynn Roque: 1995 Sex: Ovalles# Loc Src Site [id number] Blood #1 02/23/17NTIBIOTICS AT COL.: See ADY AngelWVBARRY MEDICINE RESIDENT [address] [place] [address] [id number] Blood FINALCulture has been received in lab and is no growth to date.Routine cultures are held for 5 days.Blood Culture: No Growth at 5 daysKEY FOR RESULTS: - NEW RESULTATT.PHYS.: VAMSI MARRUFO LOCATION: [id number].DATE: 02/23/17 PATIENT : KATHLEEN VILLA LMICROBIOLOGYPRINTED: 02/28/17 18:00 REGULAR 2 PAGE: 2 of 1 1 Normal [facility] Drug Screen (s)on 02-23-2017 Acetaminophen mass conc <2.0 Low 10.0-30.0 [facility] Comment on above: Performed By: #### C BC ####[facility], [address] [place] [address] 53599 Drug Screen (s) Positive Normal [facility] Comment on above: Result Comment: . THE SERUM SHOWS EVIDENCE OF:1. Salicylate. Performed By: #### C BC ####[facility], [address] [place] [address] 44485 Ethanol mg/dL Normal [facility] Comment on above: Performed By: #### C BC ####[facility], [address] [place] [address] 53936 Serum TCA Negative Normal [facility] Comment on above: Performed By: #### C BC ####[facility], [address] [place] [address] 26844 Salicylate (ds) 3.0 mg/dL Low 10.0-25.0 [facility] Comment on above: Performed By: #### C BC ####[address] [address] Drugs screened: SEE BELOW Normal [facility] Comment on above: Result Comment: T his drug screen is a presumptive screening only. Noconfirmation will be performed unless requested.Drugs screened include: Threshold Ethanol 10.0 mg/dl Salicylate 2.0 mg/dL Acetaminophen 2.0 mcg/mL Tricyclic Antidepressants 300 ng/mLTesting has been performed FOR MEDICAL PURPOSES ONLY. Performed By: #### C BC ####[place] [address] ED Note-Provideron 7 ED Note-Provider Normal [facility] Glomerular Filtration Rate E stimateon 02-23-2017 eGFR (non-black) mL/min/{1.73_m2} Normal [facility] Comment on above: Result Comment: Davidson lation mean GFR = 116 mL/min/1.73 sq.m. for ages 20-29 years. Chronic Kidney Disease: Less than 60 mL/min/1.73 square metersEnd Stage Renal Disease: Less than 15 mL/min/1.73 square meters Performed By: #### C BC ####[place] [id number] eGFR (non-black) mL/min/{1.73_m2} Normal [facility] Comment on above: Result Comment: Popu lation mean GFR = 116 mL/min/1.73 sq.m. for ages 20-29 years. Chronic Kidney Disease: Less than 60 mL/min/1.73 square metersEnd Stage Renal Disease: Less than 15 mL/min/1.73 square meters Performed By: #### G FR ####[place] [id number] eGFR (non-black) mL/min/{1.73_m2} Normal [facility] Comment on above: Order Comment: CBN Performed By: #### G FR ####[place] [address] Result Comment: Davidson kowalski mean GFR = 116 mL/min/1.73 sq.m. for ages 20-29 years. Chronic Kidney Disease: Less than 60 mL/min/1.73 square metersEnd Stage Renal Disease: Less than 15 mL/min/1.73 square meters Magnesiumon 02-23-2017 Magnesium 2.0 mg/dL Normal 1.6-2.4 [facility] Comment on above: Performed By: #### M G ####[place] [address] Osmolality (s)on 02-23-2017 Osmolality 299 mOsm/kg Normal 275-300 [facility] Comment on above: Performed By: #### C BC ####[place] [address] Phosphoruson 02-23-2017 Phosphate 2.8 mg/dL Normal 2.5-4.5 [facility] Comment on above: Performed By: #### P HOS ####[place] [address] TSHon 02-23-2017 Thyroid stimulating hormone (TSH) 0.62 mcIU/mL Normal 0.36-3.74 [facility] Comment on above: Performed By: #### C BC ####[place] [address] Troponin Ion 02-23-2017 Troponin I.cardiac mass conc ng/mL Normal 0.000-0.040 [facility] Comment on above: Result Comment: Trop onin I reference ranges (05/05/14): 0.00-0.040 ng/mL Negative and non-diagnostic. >0.040 ng/mL Consistent with cardiac damage, increased clinical risk and possibility of myocardial infarction. Serial measurements, a rise & fall in test results, clinical history, appropriate symptoms and/or ECG changes may help assess possibility of [place]. *Other non-acute coronary syndrome conditions such as CHF, myocarditis, pulmonary emboli, sepsis and cardiac surgery could result in myocardial damage and increased troponin levels. NOTE: This is a new and more precise Troponin assay started 05-05-14 Performed By: #### T AWAIS ####[facility], [address] [place] [address] XR CHEST 1 VIEWon 02-23-2017 XR CHEST [...] study. Interpreted By: Neo Villagranreliminary Report By: eNo Villagran MDElectronically Signed By: Neo Villagran MD Dictated Date: 02/23/2017 4:54:41 PM Prelim Date: 02/23/2017 4:54:41 PM Sign Date: 02/23/2017 4:58:05 PM [facility] XR FOOT COMPLETE RIGHTon XR FOOT [...] PM Sign Date: 02/23/2017 7:47:57 PM Normal [facility] pH (venous)on 02-23-2017 pH of blood 7.381 [pH] Normal 7.380-7.460 [facility] Comment on above: Order Comment: CBN Performed By: #### P HV ####[facility] [address] [place] [address] Vital Signs Date Time Vital Sign Value Performing Clinician Facility 01-27-2025 13:08-0400 Diastolic blood pressure 87 mm[Hg] Mishel Neelima PA-C Work Phone: [facility] 01-27-2025 13:08-0400 Heart rate 98 /min Mishel Neelima PA-C Work Phone: [facility] 01-27-2025 13:08-0400 Systolic blood pressure 134 mm[Hg] Mishel Neelima PA-C Work Phone: [facility] 11-11-2024 10:18-0400 Body height 175.3 cm Leticia Hylton DO Work Phone: [facility] 11-11-2024 10:18-0400 Body mass index (BMI) [Ratio] 25.07 kg/m2 Leticia Hylton DO Work Phone: [facility] 11-11-2024 10:18-0400 Body weight 77 kg Leticia Hylton DO Work Phone: [facility] 11-11-2024 10:18-0400 Diastolic blood pressure 66 mm[Hg] Leticia Hylton DO Work Phone: [facility] 11-11-2024 10:18-0400 Heart rate 107 /min Leticia Hylton DO Work Phone: [facility] 11-11-2024 10:18-0400 Systolic blood pressure 103 mm[Hg] Leticia Hylton DO Work Phone: [facility] 07-10-2024 11:25-0500 Body height 172.7 cm Jason Paredes MD Work Phone: [facility] 07-10-2024 11:25-0500 Body mass index (BMI) [Ratio] 26 kg/m2 Jason Paredes MD Work Phone: [facility] 07-10-2024 11:25-0500 Body weight 77.56 kg Jasno Paredes MD Work Phone: [place] [id number] 11:25-0500 Diastolic blood pressure 68 mm[Hg] Jason Paredes MD Work Phone: [facility] 07-10-2024 11:25-0500 Systolic blood pressure 112 mm[Hg] Jason Paredes MD Work Phone: [facility] 03-12-2024 13:58-0400 Body height 175.3 cm Kvng Lewis MD Work Phone: [facility] 03-12-2024 13:58-0400 Body mass index (BMI) [Ratio] 25.39 kg/m2 Kvng Lewis MD Work Phone: [facility] 03-12-2024 13:58-0400 Body weight 78 kg Kvng Lewis MD Work Phone: [facility] 03-12-2024 13:58-0400 Diastolic blood pressure 58 mm[Hg] Kvng Lewis MD Work Phone: [facility] 03-12-2024 13:58-0400 Heart rate 69 /min Kvng Lewis MD Work Phone: [facility] 03-12-2024 13:58-0400 SaO2% (BldA) [Mass fraction] 97 % Kvng Lewis MD Work Phone: [facility] 03-12-2024 13:58-0400 Systolic blood pressure 100 mm[Hg] Kvng Lewis MD Work Phone: [facility] 12-13-2023 15:12-0400 Body weight 77.11 kg Jessica [place] PACKING ATTENDANT.TELEGRAPH SERVICE RATER Work Phone: [facility] 12-13-2023 15:12-0400 Diastolic blood pressure 87 mm[Hg] Jessica [place] PACKING ATTENDANT.TELEGRAPH SERVICE RATER Work Phone: [facility] 12-13-2023 15:12-0400 Heart rate 80 /min Jessica [place] PACKING ATTENDANT.TELEGRAPH SERVICE RATER Work Phone: [facility] 12-13-2023 15:12-0400 Respiratory rate 16 /min Jessica [place] PACKING ATTENDANT.TELEGRAPH SERVICE RATER Work Phone: [facility] 12-13-2023 15:12-0400 Systolic blood pressure 139 mm[Hg] Jessica Guerrero APRN.CNP Work Phone: [facility] 12-07-2023 17:30-0400 Body height 175.26 cm No Primary Care Physician [facility] 12-07-2023 17:30-0400 Body temperature 97.1 [degF] No Primary Care Physician [facility] 12-07-2023 17:30-0400 Diastolic blood pressure 70 mm[Hg] No Primary Care Physician [facility] 12-07-2023 17:30-0400 Heart rate 68 /min No Primary Care Physician [facility] 12-07-2023 17:30-0400 Respiratory rate 15 /min No Primary Care Physician [facility] 12-07-2023 17:30-0400 SaO2% (BldA) [Mass fraction] 98 % No Primary Care Physician [facility] 12-07-2023 17:30-0400 Systolic blood pressure 130 mm[Hg] No Primary Care Physician [facility] 10-25-2023 22:04-0500 Body temperature 97.4 [degF] No Primary Care Physician [facility] 10-25-2023 22:04-0500 Diastolic blood pressure 64 mm[Hg] No Primary Care Physician [facility] 10-25-2023 22:04-0500 Heart rate 77 /min No Primary Care Physician [facility] 10-25-2023 22:04-0500 Respiratory rate 19 /min No Primary Care Physician [facility] 10-25-2023 22:04-0500 SaO2% (BldA) [Mass fraction] 100 % No Primary Care Physician [facility] 10-25-2023 22:04-0500 Systolic blood pressure 117 mm[Hg] No Primary Care Physician [facility] 10-25-2023 17:12-0500 Body mass index (BMI) [Ratio] 23.3 kg/m2 No Primary Care Physician [facility] 10-25-2023 17:12-0500 Body weight 71.7 kg No Primary Care Physician [facility] 10-25-2023 16:24-0500 Body height 175.26 cm No Primary Care Physician [facility] 10-18-2023 10:00-0500 Diastolic blood pressure 71 mm[Hg] No Primary Care Physician [facility] 10-18-2023 10:00-0500 Heart rate 62 /min No Primary Care Physician [facility] 10-18-2023 10:00-0500 Respiratory rate 16 /min No Primary Care Physician [facility] 10-18-2023 10:00-0500 SaO2% (BldA) [Mass fraction] 99 % No Primary Care Physician [facility] 10-18-2023 10:00-0500 Systolic blood pressure 115 mm[Hg] No Primary Care Physician [facility] 10-18-2023 08:00-0500 Body temperature 97.9 [degF] No Primary Care Physician [facility] 10-18-2023 05:28-0500 Body mass index (BMI) [Ratio] 24.6 kg/m2 No Primary Care Physician [facility] 10-18-2023 05:28-0500 Body weight 75.6 kg No Primary Care Physician [facility] 10-17-2023 15:25-0500 Body height 175.26 cm No Primary Care Physician [facility] 10-17-2023 11:51-0500 Body temperature 97.6 [degF] No Primary Care Physician [facility] 10-17-2023 11:51-0500 Diastolic blood pressure 58 mm[Hg] No Primary Care Physician [facility] 10-17-2023 11:51-0500 Heart rate 85 /min No Primary Care Physician [facility] 10-17-2023 11:51-0500 Respiratory rate 18 /min No Primary Care Physician [facility] 10-17-2023 11:51-0500 SaO2% (BldA) [Mass fraction] 98 % No Primary Care Physician [facility] 10-17-2023 11:51-0500 Systolic blood pressure 116 mm[Hg] No Primary Care Physician [facility] 10-17-2023 09:57-0500 Body height 175.26 cm No Primary Care Physician [facility] 10-17-2023 09:57-0500 Body mass index (BMI) [Ratio] 24.7 kg/m2 No Primary Care Physician [facility] 10-17-2023 09:57-0500 Body weight 76.2 kg No Primary Care Physician [facility] 09-25-2023 11:05-0500 Body temperature 97.6 [degF] No Primary Care Physician [facility] 09-25-2023 11:05-0500 Heart rate 76 /min No Primary Care Physician [facility] 09-25-2023 11:05-0500 Respiratory rate 14 /min No Primary Care Physician [facility] 09-25-2023 11:05-0500 SaO2% (BldA) [Mass fraction] 99 % No Primary Care Physician [facility] 09-25-2023 08:08-0500 Body mass index (BMI) [Ratio] 24.1 kg/m2 No Primary Care Physician [facility] 09-25-2023 08:08-0500 Body weight 74.19 kg No Primary Care Physician [facility] 09-25-2023 08:08-0500 Diastolic blood pressure 79 mm[Hg] No Primary Care Physician [facility] 09-25-2023 08:08-0500 Systolic blood pressure 140 mm[Hg] No Primary Care Physician [facility] 09-24-2023 20:19-0500 Body temperature 97 [degF] No Primary Care Physician [facility] 09-24-2023 20:19-0500 Diastolic blood pressure 66 mm[Hg] No Primary Care Physician [facility] 09-24-2023 20:19-0500 Heart rate 96 /min No Primary Care Physician [facility] 09-24-2023 20:19-0500 Respiratory rate 16 /min No Primary Care Physician [facility] 09-24-2023 20:19-0500 SaO2% (BldA) [Mass fraction] 97 % No Primary Care Physician [facility] 09-24-2023 20:19-0500 Systolic blood pressure 125 mm[Hg] No Primary Care Physician [facility] 09-24-2023 17:48-0500 Body height 175.26 cm No Primary Care Physician [facility] 09-24-2023 17:48-0500 Body mass index (BMI) [Ratio] 24.3 kg/m2 No Primary Care Physician [facility] 09-24-2023 17:48-0500 Body weight 74.7 kg No Primary Care Physician [facility] 09-20-2023 15:35-0500 Diastolic blood pressure 79 mm[Hg] No Primary Care Physician [facility] 09-20-2023 15:35-0500 Heart rate 79 /min No Primary Care Physician [facility] 09-20-2023 15:35-0500 Respiratory rate 16 /min No Primary Care Physician [facility] 09-20-2023 15:35-0500 SaO2% (BldA) [Mass fraction] 97 % No Primary Care Physician [facility] 09-20-2023 15:35-0500 Systolic blood pressure 107 mm[Hg] No Primary Care Physician [facility] 09-20-2023 10:21-0500 Body mass index (BMI) [Ratio] 25.9 kg/m2 No Primary Care Physician [facility] 09-20-2023 10:21-0500 Body temperature 97.9 [degF] No Primary Care Physician [facility] 09-20-2023 10:21-0500 Body weight 79.9 kg No Primary Care Physician [facility] 09-06-2023 21:32-0500 Heart rate 78 /min No Primary Care Physician [facility] 09-06-2023 21:32-0500 Respiratory rate 18 /min No Primary Care Physician [facility] 09-06-2023 21:32-0500 SaO2% (BldA) [Mass fraction] 99 % No Primary Care Physician [facility] 09-06-2023 21:30-0500 Diastolic blood pressure 72 mm[Hg] No Primary Care Physician [facility] 09-06-2023 21:30-0500 Systolic blood pressure 118 mm[Hg] No Primary Care Physician [facility] 09-06-2023 18:31-0500 Body mass index (BMI) [Ratio] 25.3 kg/m2 No Primary Care Physician [facility] 09-06-2023 18:31-0500 Body temperature 98.2 [degF] No Primary Care Physician [facility] 09-06-2023 18:31-0500 Body weight 77.9 kg No Primary Care Physician [facility] 08-22-2023 06:14-0500 Diastolic blood pressure 63 mm[Hg] No Primary Care Physician [facility] 08-22-2023 06:14-0500 Heart rate 64 /min No Primary Care Physician [facility] 08-22-2023 06:14-0500 Respiratory rate 16 /min No Primary Care Physician [facility] 08-22-2023 06:14-0500 SaO2% (BldA) [Mass fraction] 97 % No Primary Care Physician [facility] 08-22-2023 06:14-0500 Systolic blood pressure 99 mm[Hg] No Primary Care Physician [facility] 08-22-2023 02:45-0500 Body height 175.26 cm No Primary Care Physician [facility] 08-22-2023 02:45-0500 Body mass index (BMI) [Ratio] 26.4 kg/m2 No Primary Care Physician [facility] 08-22-2023 02:45-0500 Body temperature 98.7 [degF] No Primary Care Physician [facility] 08-22-2023 02:45-0500 Body weight 81.2 kg No Primary Care Physician [facility] 08-10-2023 08:00-0500 Body temperature 98.1 [degF] No Primary Care Physician [facility] 08-10-2023 08:00-0500 Diastolic blood pressure 71 mm[Hg] No Primary Care Physician [facility] 08-10-2023 08:00-0500 Heart rate 65 /min No Primary Care Physician [facility] 08-10-2023 08:00-0500 Respiratory rate 15 /min No Primary Care Physician [facility] 08-10-2023 08:00-0500 SaO2% (BldA) [Mass fraction] 97 % No Primary Care Physician [facility] 08-10-2023 08:00-0500 Systolic blood pressure 109 mm[Hg] No Primary Care Physician [facility] 08-10-2023 05:07-0500 Body mass index (BMI) [Ratio] 25.9 kg/m2 No Primary Care Physician [facility] 08-10-2023 05:07-0500 Body weight 79.9 kg No Primary Care Physician [facility] 08-07-2023 10:46-0500 Body height 175.26 cm No Primary Care Physician [facility] 08-07-2023 00:45-0500 Diastolic blood pressure 41 mm[Hg] No Primary Care Physician [facility] 08-07-2023 00:45-0500 Heart rate 114 /min No Primary Care Physician [facility] 08-07-2023 00:45-0500 Respiratory rate 18 /min No Primary Care Physician [facility] 08-07-2023 00:45-0500 SaO2% (BldA) [Mass fraction] 99 % No Primary Care Physician [facility] 08-07-2023 00:45-0500 Systolic blood pressure 136 mm[Hg] No Primary Care Physician [facility] 08-06-2023 21:33-0500 Body height 175.26 cm No Primary Care Physician [facility] 08-06-2023 21:33-0500 Body mass index (BMI) [Ratio] 25.9 kg/m2 No Primary Care Physician [facility] 08-06-2023 21:33-0500 Body temperature 97.8 [degF] No Primary Care Physician [facility] 08-06-2023 21:33-0500 Body weight 79.8 kg No Primary Care Physician [facility] 08-06-2023 14:00-0500 Respiratory rate 16 /min No Primary Care Physician [facility] 08-06-2023 08:53-0500 Body height 175.26 cm No Primary Care Physician [facility] 08-06-2023 08:53-0500 Body mass index (BMI) [Ratio] 26.3 kg/m2 No Primary Care Physician [facility] 08-06-2023 08:53-0500 Body temperature 97.6 [degF] No Primary Care Physician [facility] 08-06-2023 08:53-0500 Body weight 80.8 kg No Primary Care Physician [facility] 08-06-2023 08:53-0500 Diastolic blood pressure 83 mm[Hg] No Primary Care Physician [facility] 08-06-2023 08:53-0500 Heart rate 115 /min No Primary Care Physician [facility] 08-06-2023 08:53-0500 SaO2% (BldA) [Mass fraction] 97 % No Primary Care Physician [facility] 08-06-2023 08:53-0500 Systolic blood pressure 126 mm[Hg] No Primary Care Physician [facility] 06-26-2023 02:56-0400 Diastolic blood pressure 48 mm[Hg] No Primary Care Physician [facility] 06-26-2023 02:56-0400 Systolic blood pressure 96 mm[Hg] No Primary Care Physician [facility] 06-26-2023 01:13-0400 Heart rate 80 /min No Primary Care Physician [facility] 06-26-2023 01:13-0400 Respiratory rate 18 /min No Primary Care Physician [facility] 06-26-2023 01:13-0400 SaO2% (BldA) [Mass fraction] 97 % No Primary Care Physician [facility] 06-25-2023 23:14-0400 Body height 175.26 cm No Primary Care Physician [facility] 06-25-2023 23:14-0400 Body mass index (BMI) [Ratio] 26.5 kg/m2 No Primary Care Physician [facility] 06-25-2023 23:14-0400 Body temperature 97.4 [degF] No Primary Care Physician [facility] 06-25-2023 23:14-0400 Body weight 81.6 kg No Primary Care Physician [facility] 06-25-2023 11:37-0400 Heart rate 82 /min No Primary Care Physician [facility] 06-25-2023 11:37-0400 Respiratory rate 16 /min No Primary Care Physician [facility] 06-25-2023 11:37-0400 SaO2% (BldA) [Mass fraction] 97 % No Primary Care Physician [facility] 06-25-2023 08:21-0400 Body height 175.01 cm No Primary Care Physician [facility] 06-25-2023 08:21-0400 Body mass index (BMI) [Ratio] 25.8 kg/m2 No Primary Care Physician [facility] 06-25-2023 08:21-0400 Body temperature 97.4 [degF] No Primary Care Physician [facility] 06-25-2023 08:21-0400 Body weight 79.06 kg No Primary Care Physician [facility] 06-25-2023 08:21-0400 Diastolic blood pressure 45 mm[Hg] No Primary Care Physician [facility] 06-25-2023 08:21-0400 Systolic blood pressure 136 mm[Hg] No Primary Care Physician [facility] 05-31-2023 15:02-0400 Body weight 78.47 kg Jessica Los Altos PACKING ATTENDANT.TELEGRAPH SERVICE RATER Work Phone: [facility] 05-31-2023 15:02-0400 Diastolic blood pressure 60 mm[Hg] Jessica Los Altos PACKING ATTENDANT.TELEGRAPH SERVICE RATER Work Phone: [facility] 05-31-2023 15:02-0400 Heart rate 91 /min Jessica Los Altos PACKING ATTENDANT.TELEGRAPH SERVICE RATER Work Phone: [facility] 05-31-2023 15:02-0400 Respiratory rate 18 /min Jessica Los Altos PACKING ATTENDANT.TELEGRAPH SERVICE RATER Work Phone: [facility] 05-31-2023 15:02-0400 Systolic blood pressure 92 mm[Hg] Jessica Los Altos PACKING ATTENDANT.TELEGRAPH SERVICE RATER Work Phone: [facility] 05-03-2023 09:00-0400 Respiratory rate 16 /min No Primary Care Physician [facility] 05-03-2023 04:23-0400 Body height 175.26 cm No Primary Care Physician [facility] 05-03-2023 04:23-0400 Body mass index (BMI) [Ratio] 26.9 kg/m2 No Primary Care Physician [facility] 05-03-2023 04:23-0400 Body temperature 97.7 [degF] No Primary Care Physician [facility] 05-03-2023 04:23-0400 Body weight 82.8 kg No Primary Care Physician [facility] 05-03-2023 04:23-0400 Diastolic blood pressure 68 mm[Hg] No Primary Care Physician [facility] 05-03-2023 04:23-0400 Heart rate 89 /min No Primary Care Physician [facility] 05-03-2023 04:23-0400 SaO2% (BldA) [Mass fraction] 97 % No Primary Care Physician [facility] 05-03-2023 04:23-0400 Systolic blood pressure 121 mm[Hg] No Primary Care Physician [facility] 04-29-2023 14:12-0400 Body temperature 98.3 [degF] No Primary Care Physician [facility] 04-29-2023 14:12-0400 Diastolic blood pressure 61 mm[Hg] No Primary Care Physician [facility] 04-29-2023 14:12-0400 Heart rate 62 /min No Primary Care Physician [facility] 04-29-2023 14:12-0400 Respiratory rate 18 /min No Primary Care Physician [facility] 04-29-2023 14:12-0400 SaO2% (BldA) [Mass fraction] 98 % No Primary Care Physician [facility] 04-29-2023 14:12-0400 Systolic blood pressure 132 mm[Hg] No Primary Care Physician [facility] 04-28-2023 12:55-0400 Body height 175.26 cm No Primary Care Physician [facility] 04-28-2023 12:55-0400 Body weight 78.69 kg No Primary Care Physician [facility] 04-27-2023 17:02-0400 Body mass index (BMI) [Ratio] 25.6 kg/m2 No Primary Care Physician [facility] 04-27-2023 16:45-0400 Diastolic blood pressure 61 mm[Hg] [facility] 04-27-2023 16:45-0400 Respiratory rate 18 /min [place] 04-27-2023 16:45-0400 Systolic blood pressure 118 mm[Hg] [facility] 04-27-2023 16:13-0400 Body temperature 97.8 [degF] [place] 04-27-2023 16:13-0400 Heart rate 90 /min [facility] 04-27-2023 13:23-0400 SaO2% (BldA) [Mass fraction] 96 % [facility] 04-27-2023 09:26-0400 Body height 175.01 cm [facility] 04-27-2023 09:26-0400 Body mass index (BMI) [Ratio] 28.1 kg/m2 [facility] 04-27-2023 09:26-0400 Body weight 86.2 kg [facility] 04-26-2023 23:47-0400 Respiratory rate 22 /min [place] 04-26-2023 22:00-0400 Heart rate 81 /min [facility] 04-26-2023 22:00-0400 SaO2% (BldA) [Mass fraction] 97 % [facility] 04-26-2023 21:29-0400 Diastolic blood pressure 82 mm[Hg] [facility] 04-26-2023 21:29-0400 Systolic blood pressure 115 mm[Hg] [facility] 04-26-2023 20:25-0400 Body height 175.26 cm [facility] 04-26-2023 20:25-0400 Body mass index (BMI) [Ratio] 25.4 kg/m2 [facility] 04-26-2023 20:25-0400 Body temperature 98.6 [degF] [place] 04-26-2023 20:25-0400 Body weight 78.21 kg [facility] 04-23-2023 13:00-0400 Respiratory rate 16 /min [place] 04-23-2023 11:40-0400 Heart rate 52 /min [facility] 04-23-2023 08:33-0400 Body mass index (BMI) [Ratio] 26.9 kg/m2 [facility] 04-23-2023 08:33-0400 Body temperature 97.6 [degF] [place] 04-23-2023 08:33-0400 Body weight 82.6 kg [facility] 04-23-2023 08:33-0400 Diastolic blood pressure 77 mm[Hg] [facility] 04-23-2023 08:33-0400 SaO2% (BldA) [Mass fraction] 96 % [facility] 04-23-2023 08:33-0400 Systolic blood pressure 123 mm[Hg] [facility] 03-22-2023 11:23-0400 Body temperature 98.1 [degF] Benito Jewell MD Work Phone: [facility] 03-22-2023 11:23-0400 Diastolic blood pressure 72 mm[Hg] Benito Jewell MD Work Phone: [facility] 03-22-2023 11:23-0400 Heart rate 61 /min Benito Jewell MD Work Phone: [facility] 03-22-2023 11:23-0400 Respiratory rate 16 /min Benito Jewell MD Work Phone: [facility] 03-22-2023 11:23-0400 SaO2% (BldA) [Mass fraction] 96 % Benito Jewell MD Work Phone: [facility] 03-22-2023 11:23-0400 Systolic blood pressure 116 mm[Hg] Benito Jewell MD Work Phone: [facility] 03-20-2023 03:02-0400 Body height 175.3 cm Benito Jewell MD Work Phone: [facility] 03-20-2023 03:02-0400 Body mass index (BMI) [Ratio] 26.73 kg/m2 Benito Jewell MD Work Phone: [facility] 03-20-2023 03:02-0400 Body weight 82.1 kg Benito Jewell MD Work Phone: [facility] 01-25-2023 14:02-0400 Body weight 83.92 kg 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: [facility] 01-25-2023 14:02-0400 Diastolic blood pressure 64 mm[Hg] 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: [facility] 01-25-2023 14:02-0400 Heart rate 73 /min 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: [facility] 01-25-2023 14:02-0400 Respiratory rate 18 /min 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: [facility] 01-25-2023 14:02-0400 Systolic blood pressure 129 mm[Hg] 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: [facility] 12-08-2022 14:10-0400 Body height 175.3 cm Vivi Smith MD Work Phone: [facility] 12-08-2022 14:10-0400 Body temperature 97 [degF] Vivi Smith MD Work Phone: [facility] 12-08-2022 14:10-0400 Body weight 85 kg Vivi Smith MD Work Phone: [facility] 12-08-2022 14:10-0400 Diastolic blood pressure 86 mm[Hg] Vivi Smith MD Work Phone: [facility] 12-08-2022 14:10-0400 Heart rate 90 /min Vivi Smith MD Work Phone: [facility] 12-08-2022 14:10-0400 Respiratory rate 20 /min Vivi Smith MD Work Phone: [facility] 12-08-2022 14:10-0400 SaO2% (BldA) [Mass fraction] 98 % Vivi Smith MD Work Phone: [facility] 12-08-2022 14:10-0400 Systolic blood pressure 142 mm[Hg] Vivi Smith MD Work Phone: [facility] 11-07-2022 14:00-0400 Body temperature 97.3 [degF] Abelardo La MD Work Phone: [facility] 11-07-2022 14:00-0400 Body weight 90.72 kg Abelardo La MD Work Phone: [facility] 11-07-2022 14:00-0400 Diastolic blood pressure 72 mm[Hg] Abelardo La MD Work Phone: [facility] 11-07-2022 14:00-0400 Heart rate 94 /min Abelardo La MD Work Phone: [facility] 11-07-2022 14:00-0400 Respiratory rate 16 /min Abelardo La MD Work Phone: [facility] 11-07-2022 14:00-0400 SaO2% (BldA) [Mass fraction] 95 % Abelardo La MD Work Phone: [facility] 11-07-2022 14:00-0400 Systolic blood pressure 129 mm[Hg] Abelardo La MD Work Phone: [facility] 10-22-2022 16:14-0500 Body temperature 99.5 [degF] Abelardo La MD Work Phone: [facility] 10-22-2022 16:14-0500 Body weight 86.18 kg Abelardo La MD Work Phone: [facility] 10-22-2022 16:14-0500 Diastolic blood pressure 96 mm[Hg] Abelardo La MD Work Phone: [facility] 10-22-2022 16:14-0500 Heart rate 143 /min Abelardo La MD Work Phone: [facility] 10-22-2022 16:14-0500 Respiratory rate 20 /min Abelardo La MD Work Phone: [facility] 10-22-2022 16:14-0500 SaO2% (BldA) [Mass fraction] 94 % Abelardo La MD Work Phone: [facility] 10-22-2022 16:14-0500 Systolic blood pressure 150 mm[Hg] Abelardo La MD Work Phone: [facility] 09-19-2022 13:18-0500 Body temperature 97.5 [degF] Injection/[facility] 09-19-2022 13:18-0500 Diastolic blood pressure 62 mm[Hg] Injection/[facility] 09-19-2022 13:18-0500 Heart rate 50 /min Injection/[facility] 09-19-2022 13:18-0500 Respiratory rate 18 /min Injection/[facility] 09-19-2022 13:18-0500 Systolic blood pressure 123 mm[Hg] Injection/[facility] 08-16-2022 15:14-0500 Body weight 87.09 kg Autumn Valadez APRN.CNP Work Phone: [facility] 08-16-2022 15:14-0500 Diastolic blood pressure 58 mm[Hg] 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: [facility] 08-16-2022 15:14-0500 Heart rate 68 /min 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: [facility] 08-16-2022 15:14-0500 SaO2% (BldA) [Mass fraction] 95 % 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: [facility] 08-16-2022 15:14-0500 Systolic blood pressure 113 mm[Hg] 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: [facility] 08-05-2022 11:37-0500 Body temperature 97.2 [degF] Injection/[facility] 08-05-2022 11:37-0500 Diastolic blood pressure 70 mm[Hg] Injection/[facility] 08-05-2022 11:37-0500 Heart rate 68 /min Injection/[facility] 08-05-2022 11:37-0500 Respiratory rate 18 /min Injection/[facility] 08-05-2022 11:37-0500 Systolic blood pressure 119 mm[Hg] Injection/[facility] 06-07-2022 14:14-0400 Body height 175.3 cm Phoebe PACKING ATTENDANT.TELEGRAPH SERVICE RATER Work Phone: [facility] 06-07-2022 14:14-0400 Body weight 82.33 kg Phoebe PACKING ATTENDANT.TELEGRAPH SERVICE RATER Work Phone: [facility] 06-07-2022 14:14-0400 Diastolic blood pressure 70 mm[Hg] Phoebe er PACKING ATTENDANT.TELEGRAPH SERVICE RATER Work Phone: [facility] 06-07-2022 14:14-0400 Systolic blood pressure 118 mm[Hg] Phoebe Easter PACKING ATTENDANT.TELEGRAPH SERVICE RATER Work Phone: [facility] 04-18-2022 08:13-0400 Body height 175.3 cm Dashawn Lenz PACKING ATTENDANT.TELEGRAPH SERVICE RATER Work Phone: [facility] 04-18-2022 08:13-0400 Body temperature 96.91 [degF] Dishon Kamwesa PACKING ATTENDANT.TELEGRAPH SERVICE RATER Work Phone: [facility] 04-18-2022 08:13-0400 Body weight 81.65 kg Dishon Kamwesa PACKING ATTENDANT.TELEGRAPH SERVICE RATER Work Phone: [facility] 04-18-2022 08:13-0400 Diastolic blood pressure 72 mm[Hg] Dishon Kamwesa PACKING ATTENDANT.TELEGRAPH SERVICE RATER Work Phone: [facility] 04-18-2022 08:13-0400 Heart rate 78 /min Dishon Kamwesa PACKING ATTENDANT.TELEGRAPH SERVICE RATER Work Phone: [facility] 04-18-2022 08:13-0400 SaO2% (BldA) [Mass fraction] 97 % Dishon Kamwesa PACKING ATTENDANT.TELEGRAPH SERVICE RATER Work Phone: [facility] 04-18-2022 08:13-0400 Systolic blood pressure 120 mm[Hg] Dishon Kamwesa PACKING ATTENDANT.[facility] Work Phone: [facility] 03-11-2022 12:07-0400 Body temperature 96.8 [degF] [facility] 03-11-2022 12:07-0400 Diastolic blood pressure 51 mm[Hg] [facility] 03-11-2022 12:07-0400 Heart rate 55 /min [facility] 03-11-2022 12:07-0400 Respiratory rate 16 /min [facility] 03-11-2022 12:07-0400 Systolic blood pressure 101 mm[Hg] [facility] 03-07-2022 14:00-0400 Body temperature 96.91 [degF] Injection/[facility] 03-07-2022 14:00-0400 Diastolic blood pressure 65 mm[Hg] Injection/[facility] 03-07-2022 14:00-0400 Heart rate 83 /min Injection/[facility] 03-07-2022 14:00-0400 Respiratory rate 16 /min Injection/[facility] 03-07-2022 14:00-0400 Systolic blood pressure 124 mm[Hg] Injection/[facility] 12-28-2021 16:16-0400 Body temperature 97.88 [degF] ANITA COMER MD [facility] 12-28-2021 16:16-0400 Diastolic blood pressure 81 mm[Hg] ANITA COMER MD [facility] 12-28-2021 16:16-0400 Heart rate 78 /min ANITA COMER MD [facility] 12-28-2021 16:16-0400 Respiratory rate 20 /min ANITA COMER MD [facility] 12-28-2021 16:16-0400 Systolic blood pressure 134 mm[Hg] ANITA COMER MD [facility] 05-31-2021 20:30-0400 SaO2% (BldA) [Mass fraction] 100 % [facility] Comment on above: Order Comment: [place]: Performed By: #### L [id number] ####[facility] [id number] [place], [place] [address]Dr# [phone] Encounters Encounter Date Encounter Type Care Provider Facility Start: 05-24-2025 ambulatory Zebulun Beam VSC Facili ty:[facility] Start: 05-21-2025 End: 05-21-2025 ambulatory Zebulun Beam VSC Facility:[facility] Start: 05-03-2025 End: 05-05-2025 Evaluation and management of inpatient David Watson Luis Facility:[facility] Start: 05-03-2025 ambulatory Vita Jefferson Facility :[facility] Start: 03-31-2025 End: 03-31-2025 ambulatory Zebulun Beam VSC Facility:[facility] Start: 03-17-2025 End: 03-19-2025 Evaluation and management of inpatient Zebulun Beam VSC Facility:[facility] Start: 03-17-2025 ambulatory Vita Jefferson Facility :[facility] Start: 03-06-2025 ambulatory Dangelo Encarnacion Fac ility:[facility] Start: 03-06-2025 End: 03-08-2025 Evaluation and management of inpatient Dangelo Encarnacion Facility:[facility] Start: 03-05-2025 End: 03-05-2025 ambulatory Truman Gee Facility:[facility] Start: 02-25-2025 End: 02-25-2025 ambulatory Zebulun Beam VSC Facility:[facility] Start: 02-18-2025 ambulatory Ileana Lobo Facility:[facility] Start: 02-18-2025 End: 02-19-2025 Evaluation and management of inpatient Ileana Lobo Facility:[facility] Start: 02-03-2025 End: 02-03-2025 ambulatory Zebulun Beam VSC Facility:[facility] Start: 01-27-2025 End: 01-27-2025 Office outpatient visit 25 minutes Mishel Ortez PA-C Work Phone: [facility] [employer] Comment on above: Psoriasis vulgaris ( Primary Dx); Folliculitis; Multiple benign melanocytic nevi of both upper extremities, both lower extremities, and trunk; Seborrheic keratosis; Solar lentigo; Dermatofibroma; Cody angioma; Screening for viral disease; Encounter for screening for respiratory tuberculosis; Encounter for long-term (current) use of medications Start: 01-27-2025 End: 01-27-2025 ambulatory MISHEL NEELIMA [facility] Start: 01-22-2025 ambulatory Vita Jefferson Facility :[facility] Start: 01-22-2025 End: 01-26-2025 Evaluation and management of inpatient David Smith Facility:[facility] Start: 01-08-2025 End: 01-08-2025 ambulatory Zebulun Beam VSC Facility:[facility] Start: 01-07-2025 End: 01-08-2025 Refill Mishel Ortez PA-C Work Phone: [facility] [place] Start: 12-25-2024 End: 12-25-2024 ambulatory Jaime Barbour VSC Facility:[facility] Start: 12-19-2024 End: 12-23-2024 Telephone encounter Manasa Cantu PA-C Work Phone: [facility] Comment on above: Appointment Request (rayray) Start: 12-14-2024 End: 12-16-2024 ambulatory John Knapp Facility:[facility] Start: 11-28-2024 End: 11-28-2024 ambulatory Brit Ruiz VSC Facility:[facility] Start: 11-11-2024 End: 11-11-2024 Telephone encounter Leticia Hylton DO Work Phone: Gastroenterology Start: 11-11-2024 End: 11-11-2024 Subsequent hospital visit by physician [facility] Comment on above: Chronic idiopathic c onstipation [K59.04] Start: 11-11-2024 End: 11-11-2024 ambulatory LETICIA HYLTON Facility:[facility] Start: 11-11-2024 End: 11-11-2024 Patient encounter procedure Leticia Hylton DO Work Phone: Gastroenterology Comment on above: Chronic idiopathic c onstipation (Primary Dx); Abdominal pain, suprapubic Start: 11-05-2024 ambulatory Kenyetta Suarez Facility:[facility] Start: 11-05-2024 End: 11-06-2024 Evaluation and management of inpatient Kenyetta Suarez Facility:[facility] Start: 11-05-2024 End: 11-05-2024 Telephone encounter Leticia Hylton DO Work Phone: Gastroenterology Comment on above: Patient states elbertin g major issues Start: 11-03-2024 End: 11-04-2024 Emergency department patient visit Sergey Janel Facility:[facility] Start: 10-18-2024 End: 10-21-2024 ambulatory Ramya Lombardo Facility:[facility] Start: 10-02-2024 End: 10-10-2024 Telephone encounter Jessica Guerrero APRN.CNP Work Phone: Endocrinology Comment on above: Forms Start: 09-02-2024 End: 09-02-2024 Emergency department patient visit Rm Chirinos Facility:[facility] Start: 09-02-2024 End: 09-02-2024 ambulatory Leticia Hylton DO Work Phone: Gastroenterology Comment on above: Chronic idiopathic c onstipation (Primary Dx); Gastroparesis Start: 09-02-2024 End: 09-02-2024 Telemedicine consultation with patient Leticia Hylton DO Work Phone: Gastroenterology Start: 08-07-2024 End: 08-07-2024 Telephone encounter Manasa Cantu PA-C Work Phone: [facility] Comment on above: Prior Authorization (Skyrizi renewal) Start: 08-02-2024 ambulatory Vamsi Duvall Facili ty:[facility] Start: 08-02-2024 End: 08-03-2024 Evaluation and management of inpatient Vamsi Duvall Facility:[facility] Start: 08-01-2024 End: 08-01-2024 Emergency department patient visit Olvin Ibarra Facility:[facility] Start: 2024 End: 08-06-2024 ambulatory Edie Radhajaye Facility:[facility] Start: 07-23-2024 End: 07-23-2024 [facility] Start: 07-23-2024 End: 07-23-2024 Nursing evaluation of [...] Phone: Endocrinology Start: 07-11-2024 End: 07-27-2024 ambulatory [facility] Facility:[facility] Start: 07-10-2024 End: 07-10-2024 ambulatory [facility] Facility:[facility] Start: 07-10-2024 End: 07-10-2024 ambulatory [facility] Facility:[facility] Start: 07-10-2024 End: 07-10-2024 Patient encounter [...] encounter status Jason Paredes MD Work Phone: [facility] Start: 06-28-2024 End: 07-05-2024 ambulatory [facility] Facility:[facility] Start: 06-24-2024 End: 06-25-2024 Telephone encounter Jessica Guerrero APRN.CNP Work Phone: Internal Medicine [place] Comment on above: diabetic supplies Start: 06-17-2024 End: 06-17-2024 Telephone encounter Kvng Lewis MD Work Phone: Endocrinology Comment on above: Forms Start: 06-07-2024 ambulatory Ileana Lobo Facility:[facility] Start: 06-07-2024 End: 06-11-2024 Evaluation and management of inpatient Ileana Lobo Facility:[facility] Start: 05-16-2024 End: 05-24-2024 Telephone encounter Jessica Guerrero APRN.CNP Work Phone: Endocrinology Comment on above: insulin pump Start: 05-06-2024 End: 05-06-2024 Telephone encounter Leesa Kandiceel PA-C Work Phone: [facility] Dermatology Comment on above: Prior Authorization (Skyrizi renewal) Start: 04-16-2024 End: 04-16-2024 Refill Leesa Mapel PA-C Work Phone: [facility] Dermatology Start: 04-08-2024 Refill Jessica Guerrero APRN.TELEGRAPH SERVICE RATER Work Phone: Internal Medicine [place] Comment on above: Refill Request Start: 03-12-2024 End: 03-12-2024 ambulatory [facility] Facility:[facility] Start: 03-12-2024 End: 03-12-2024 Patient encounter [...] Patient's Call Start: 01-23-2024 Telephone encounter Leesa Woodsonel PA-C Work Phone: [facility] Dermatology Comment on above: Medication Problem ( Skyrizi) Start: 12-15-2023 ambulatory Kyara Wu Pediatrician Comment on above: Primary Care Coordin ator Chronic Care Start: 12-13-2023 End: 12-13-2023 ambulatory [facility] Facility:[facility] Start: 12-13-2023 End: 12-13-2023 Patient encounter procedure Jessica Guerrero APRN.TELEGRAPH SERVICE RATER Work Phone: Endocrinology Comment on above: Type 1 diabetes kasi itus with hyperglycemia, with long-term current use of insulin (HCC) (Primary Dx); Insulin pump status Start: 12-07-2023 End: 12-07-2023 Emergency department [facility] Start: 11-14-2023 End: 11-14-2023 Office outpatient visit 15 minutes Leesa Huddleston PA-C Work Phone: [facility] Dermatology Comment on above: Psoriasis vulgaris ( Primary Dx); Multiple benign nevi Start: 11-10-2023 Patient Outreach Kyara Wu Pediatrician Comment on above: Transition Of Care Start: 11-03-2023 Patient Outreach Kyara Wu Pediatrician Comment on above: Transition Of Care Start: 10-27-2023 Patient Outreach Kyara Wu Pediatrician Comment on above: Transition Of Care Start: 10-25-2023 End: 10-25-2023 Emergency department patient visit No Primary Care Physician [facility] Work Phone: Start: 10-20-2023 Patient Outreach Kyara Wu Pediatrician Comment on above: Transition Of Care Start: 10-19-2023 Patient Outreach [facility] Comment on above: Transition Of Care ( Message) Start: 10-18-2023 Non-patient / Non-visit No [facility] Physician [facility] Inpatient Physicians Work Phone: Start: 10-17-2023 End: 10-18-2023 Evaluation and management of inpatient No Primary Care Physician [facility]Intensive [facility] Work Phone: Start: 10-12-2023 ambulatory Kyara Wu Pediatrician Comment on above: Primary Care Coordin ator Chronic Care Start: 10-02-2023 Telephone encounter Kvng Brink MD Work Phone: Endocrinology Comment on above: Forms (DME: [facility] for pump supplies) Start: 09-29-2023 ambulatory Kyara Wu Pediatrician Comment on above: Primary Care Coordin ator Chronic Care Start: 09-25-2023 End: 09-25-2023 Emergency department patient visit No Primary Care Physician [facility] Work Phone: Start: 09-24-2023 End: 09-24-2023 Emergency department patient visit No [facility] Start: 09-21-2023 Refill Vivi Smith MD Work Phone: Internal Medicine [place] Comment on above: Refill Request Start: 09-20-2023 End: 09-20-2023 Emergency department patient visit No Primary Care Physician [facility] Work Phone: Start: 09-06-2023 End: 09-06-2023 Emergency department patient visit No [facility] Start: 08-22-2023 End: 08-22-2023 Emergency department patient visit No Primary Care Physician [facility] Work Phone: Start: 08-17-2023 Telephone encounter Leesa Huddleston PA-C Work Phone: [facility] Dermatology Start: 08-15-2023 Patient Outreach Kyara garza RN [facility] Pediatrician Comment on above: Transition Of Care Start: 08-10-2023 Non-patient / Non-visit No [facility] Physician [facility] Inpatient Physicians Work Phone: Start: 08-09-2023 Non-patient / Non-visit No [facility] Physician [facility] Inpatient Physicians Work Phone: Start: 08-08-2023 Non-patient / Non-visit No [facility] Physician [facility] Inpatient Physicians Work Phone: Start: 08-07-2023 End: 08-10-2023 Evaluation and management of inpatient No [facility] Work Phone: Start: 08-06-2023 End: 08-06-2023 Emergency department patient visit No Primary Care Physician [facility] Work Phone: Start: 06-25-2023 End: 06-26-2023 Emergency department patient visit No Primary Care Physician [facility] Work Phone: Start: 06-25-2023 End: 06-25-2023 Emergency department patient visit No Primary Care Physician [facility]Emer[facility] Work Phone: Start: 05-31-2023 End: 05-31-2023 Patient encounter procedure Jessica Josue HICKSN.TELEGRAPH SERVICE RATER Work Phone: Endocrinology Comment on above: Type 1 diabetes kasi itus with hyperglycemia, with long-term current use of insulin (HCC) (Primary Dx); Insulin pump status Start: 05-03-2023 End: 05-03-2023 Emergency department patient visit No Primary Care Physician [facility] Work Phone: Start: 05-02-2023 Enedina swain PA-C Work Phone: [facility] Dermatology Comment on above: Psoriasis vulgaris ( Primary Dx) Start: 04-29-2023 Non-patient / Non-visit No [facility] Physician [facility] Inpatient Physicians Work Phone: Start: 04-28-2023 Non-patient / Non-visit No [facility] Physician [facility] Inpatient Physicians Work Phone: Start: 04-27-2023 Non-patient / Non-visit No [facility] Physician [facility] Inpatient Physicians Work Phone: Start: 04-27-2023 End: 04-29-2023 Evaluation and management of inpatient [facility] Work Phone: Start: 04-27-2023 End: 04-29-2023 observation encounter No Primary Care Physician [facility] Work Phone: Start: 04-26-2023 End: 04-26-2023 Emergency department patient visit [facility] Work Phone: Start: 04-23-2023 End: 04-23-2023 Emergency department patient visit [facility] Work Phone: Start: 04-06-2023 End: 04-06-2023 Emergency department patient visit VIVI SMITH Facility:[id number] Start: 03-20-2023 End: 03-22-[address] [facility] Start: 03-20-2023 End: 03-22-2023 Emergency department patient visit Mariel Gagnon MD Work Phone: [facility] Start: 02-15-2023 Patient encounter procedure [facility] Provider [facility] Department Start: 02-08-2023 Patient Outreach Kyara garza RN [facility] Pediatrician Comment on above: Transition Of Care Start: 02-01-2023 Telephone encounter Vivi Smith MD Work Phone: [facility] Primary Comment on above: Results Start: 01-31-2023 End: 02-04-2023 Evaluation and management of inpatient VIVI SMITH Facility:[id number] Start: 01-25-2023 End: 01-25-2023 ambulatory VIVI SMITH Facility:[id number] Start: 01-25-2023 End: 01-25-2023 Patient encounter procedure Autumn Valadez APRN.CNP Work Phone: Endocrinology Comment on above: Type 1 diabetes kasi itus with hyperglycemia, with long-term current use of insulin (HCC) (Primary Dx); Insulin pump status; Screening for diabetic retinopathy Start: 01-25-2023 End: 01-25-2023 Nursing evaluation of patient and report Nurse Laura Rg Work Phone: [facility] Primary Comment on above: Left flank pain (Elaine ten Dx); Dysuria Start: 01-24-2023 Telephone encounter Vivi Smith MD Work Phone: [facility] Primary Comment on above: Orders Results Appointment Start: 01-20-2023 End: 01-20-2023 ambulatory VIVI SMITH Facility:[id number] Start: 01-12-2023 End: 01-13-2023 ambulatory MADONNA TORO Facility:[id number] Start: 01-09-2023 E-mail encounter fro m caregiver Phoebe Fisherlorenaloni PACKING ATTENDANT.TELEGRAPH SERVICE RATER Work Phone: [facility] Start: 01-09-2023 Patient encounter procedure Phoebe Fisherlorenaloni PACKING ATTENDANT.TELEGRAPH SERVICE RATER Work Phone: Obstetrics and Gynecology Comment on above: Request an Appointme nt Start: 01-03-2023 Telephone encounter Kvng Brink MD Work Phone: Endocrinology Comment on above: Forms Start: 12-09-2022 Telephone encounter Vivi Smith MD Work Phone: [facility] [place] [facility] Comment on above: Patient Question Start: 12-08-2022 End: 12-08-2022 Office outpatient new 30 minutes Vivi Smith MD Work Phone: [facility] Primary Comment on above: Gastroparesis due to DM (HCC) (Primary Dx); Aortic root aneurysm (HCC); Primary hypertension; Chronic nausea; 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); Marfan syndrome; PTSD (post-traumatic stress disorder); Generalized abdominal pain Start: 11-07-2022 End: 11-07-2022 Patient encounter procedure Abelardo La MD Work Phone: [facility] [place] Comment on above: Viral conjunctivitis (Primary Dx) Start: 11-04-2022 Refill Leesatavares swain PA-C Work Phone: [facility] Start: 11-02-2022 Telephone encounter Kvng Brink MD Work Phone: Endocrinology Comment on above: Forms Start: 10-31-2022 Telephone encounter Kvng Brink MD Work Phone: Endocrinology Comment on above: Insurance Authorizat ion; Forms Start: 10-22-2022 End: 10-22-2022 Patient encounter procedure Abelardo La MD Work Phone: [facility] Comment on above: Lower abdominal pain (Primary Dx) Start: 10-04-2022 End: 10-04-2022 Office outpatient visit 25 minutes Leesa Huddleston PA-C Work Phone: Dermatology [place] Comment on above: Psoriasis vulgaris ( Primary Dx); Folliculitis; Encounter for long-term current use of high risk medication; Screening for viral disease Start: 09-19-2022 End: 09-19-2022 ambulatory Injection/[facility] Infusion [facility] Comment on above: Type 1 diabetes kasi itus with other specified complication (HCC) (Primary Dx) Start: 09-06-2022 Telephone encounter Autumn peralta APRN.TELEGRAPH SERVICE RATER Work Phone: Endocrinology Comment on above: Medication Problem Start: 08-16-2022 End: 08-16-2022 Patient encounter procedure Autumn Valadez APRN.TELEGRAPH SERVICE RATER Work Phone: Endocrinology Comment on above: Type 1 diabetes kasi itus with hyperglycemia, with long-term current use of insulin (HCC) (Primary Dx); Insulin pump status Start: 08-05-2022 End: 08-05-2022 ambulatory [facility] Comment on above: [...] Kvng Lewis MD Work Phone: [facility] Start: 07-06-2022 Telephone encounter Kvng Brink MD Work Phone: Endocrinology Comment on above: Appointment Start: 06-13-2022 Telephone encounter Tawanda soto DO Work Phone: Endocrinology Comment on above: Rodrigue MONIQUE for insu bill pump/pump supplies Start: 06-07-2022 End: 06-07-2022 Patient encounter procedure Phoebe Rober Mckeon PACKING ATTENDANT.TELEGRAPH SERVICE RATER Work Phone: Obstetrics and Gynecology Comment on above: Gonorrhea (Primary D x); Screen for sexually transmitted diseases Start: 06-07-2022 Telephone encounter Cyndy walker MD Work Phone: Endocrinology Comment on above: Forms ([facility] Medical) Start: 05-13-2022 ambulatory Tawanda Khoury DO Work Phone: Endocrinology Comment on above: Pump Data/30 day glu cose logs Start: 05-13-2022 E-mail encounter fro m caregiver Tawanda Khoury DO Work Phone: [facility] Start: 05-12-2022 End: 05-12-2022 Nursing evaluation of patient and report Nurse Lubricating Machine Tender [facility] Work Phone: Obstetrics and Gynecology Comment on above: Gonorrhea (Primary D x) Start: 05-10-2022 ambulatory Phoebe Richter Shayla eid PACKING ATTENDANT.TELEGRAPH SERVICE RATER Work Phone: Obstetrics and Gynecology Comment on above: Question regarding S YPHILIS TOTAL W/REFLEX Start: 05-10-2022 Telephone encounter Phoebe conde PACKING ATTENDANT.TELEGRAPH SERVICE RATER Work Phone: Obstetrics and Gynecology Comment on above: Results; Orders Start: 05-02-2022 Refill Tawanda Khoury DO Work Phone: Endocrinology Comment on above: Refill Request Refill Request (Darcy ess) Start: 04-18-2022 End: 04-18-2022 Patient encounter procedure Dashawn Cain PACKING ATTENDANT.TELEGRAPH SERVICE RATER Work Phone: [facility] Comment on above: Menstrual irregulari ty (Primary Dx); Screening for STD (sexually transmitted disease); Chronic nausea Start: 03-11-2022 End: 03-11-2022 ambulatory Chair 9 [facility] Infusion [facility] Comment on above: Type 1 diabetes kasi itus with other specified complication (HCC) (Primary Dx) Start: 03-10-2022 Refill Dashawn Cain APRN.TELEGRAPH SERVICE RATER Work Phone: [facility] Start: 03-07-2022 End: 03-07-2022 ambulatory Injection/[facility] [place] Comment on above: Type 1 diabetes kasi itus with other specified complication (HCC) (Primary Dx) Start: 03-01-2022 Chart abstracting Jayjay cobb MD Work Phone: Infusion Center Start: 01-29-2022 End: 01-29-2022 Subsequent hospital visit by physician Sourav Butts MD Work Phone: [facility] Comment on above: DKA,TYPE 1 Start: 01-27-2022 End: 01-27-2022 Subsequent hospital visit by physician Dashawn Cain APRN.TELEGRAPH SERVICE RATER Work Phone: [facility] Comment on above: E10.9 Start: 12-31-2021 Telephone encounter Tawanda soto DO Work Phone: Endocrinology Comment on above: [facility] Medical office n otes request/CGM Data Start: 12-28-2021 End: 12-28-2021 Subsequent hospital visit by physician Alysha Bishop DO Work Phone: [facility] Comment on above: GASTROPARESIS, INTRA CTABLE NAUSEA AND VOMITING Start: 12-28-2021 End: 12-28-2021 Emergency department patient visit ANITA COMER MD [facility] Start: 12-27-2021 End: 12-27-2021 Subsequent hospital visit by physician Latosha MARTINEZ [facility] Comment on above: VOMITTING/CFD/TRIAGE Start: 12-25-2021 Telephone [...] JANNETHHerve TORSTEN Comment on above: E10.9 Start: 10-12-2021 Telephone encounter Leticia Hylton DO Work Phone: Gastroenterology Comment on above: Appointment Start: 02-23-2017 End: 02-24-2017 Emergency department patient visit [facility] Start: 12-05-2014 Patient encounter status [facility] Provider [facility] Procedures Date Procedure Procedure Detail Performing Clinician Start: 11-11-2024 Radiologic exam abdo men 1 view Leticia Hylton DO Work Phone: Start: 07-10-2024 Microscopic observat ion [Identifier] in Cervix by Cyto stain Manasa Cantu PA-C Work Phone: Start: 03-12-2024 Hemoglobin A1c/Hemoglobin.total in Blood Kvng Lewis MD Work Phone: Start: 12-13-2023 Hemoglobin A1c/Hemoglobin.total in Blood Jessica Los Altos PACKING ATTENDANT.TELEGRAPH SERVICE RATER Work Phone: Start: 09-24-2023 Plain chest X-ray [...] Start: 05-31-2023 Hemoglobin A1c/Hemoglobin.total in Blood Jessica [place] PACKING ATTENDANT.TELEGRAPH SERVICE RATER Work Phone: Start: 04-28-2023 Urine culture No Primar y Care Physician Start: 04-26-2023 CT angiography of ch est with contrast Start: 04-23-2023 CT of thorax, abdome n and pelvis with contrast Start: 03-22-2023 Glucose measurement Gabo rIeland MD Work Phone: Start: 03-22-2023 Glucose measurement [...] MD Work Phone: Start: 03-20-2023 Glucose measurement [facility] tammy Ireland MD Work Phone: Start: [...] 01-25-2023 Hemoglobin A1c/Hemoglobin.total in Blood 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: Start: 01-25-2023 Urnls dip stick/tabl et rgnt auto w/o microscopy Vivi Smith MD Work Phone: Start: 08-16-2022 Hemoglobin A1c/Hemoglobin.total in Blood Autumn Rory PACKING ATTENDANT.TELEGRAPH SERVICE RATER Work Phone: Start: 05-10-2022 Microscopic observat ion [Identifier] in Cervix by Cyto stain Leesa Huddleston PA-C Work Phone: Start: 04-18-2022 Adult depression scr eening assessment Dashawn Cain APRN.TELEGRAPH SERVICE RATER Work Phone: Start: 12-28-2021 Ecg routine ecg [...] for Adults (1 - 1-dose 75+ series) [facility] Start: 2054 RSV Immunization aged 60 or older (1 - 1-dose 60+ series) RSV Immunization aged 60 or older (1 - 1-dose 60+ series) [facility] Start: 2044 Zoster Vaccines (1 of 2) Zoster Vaccines (1 of 2) [facility] Start: 07-10-2029 Screening for malignant neoplasm of cervix Cervical Cancer Screening [facility] Start: 07-10-2027 Screening for malignant neoplasm of cervix [facility] Start: 02-04-2026 End: 02-04-2026 Patient encounter procedure 02/04/2026 10:00 AM EDT Office Visit [facility] Dermatology - [place] [address] [place] [id number] Mishel Ortez PA-C [address] [place] [address] [facility] [place] Start: 11-11-2025 BP Controlled (<130/80) BP Controlled (<130/80) [facility] in Start: 07-30-2025 End: 07-30-2025 Patient encounter procedure 07/30/2025 9:20 AM EST Office Visit [facility] Dermatology [place] [address] [place] [address] Mishel Ortez PA-C [address] [place] [address] [facility] - [place] Start: 07-14-2025 End: 07-14-2025 Patient encounter procedure 07/14/2025 10:30 AM EST Office Visit OB/Gynecology [address] [place], [place] [id number] Jason Paredes MD [address] [place] [address] Annual OB/Gynecology Comment on above: Annual Start: 07-10-2025 BP Controlled (<130/80) BP Controlled (<130/80) [facility] Start: 05-10-2025 PAP TESTING PAP TESTING [facility] Start: 05-10-2025 Screening for malignant neoplasm of cervix [facility] Start: 04-28-2025 Influenza vaccination Influenza Vaccine (Season Ended) [facility] Start: 03-12-2025 BP Controlled (<130/80) BP Controlled (<130/80) [facility] Start: 03-12-2025 Hemoglobin A1c measurement Diabetes: Hemoglobin A1C [facility] Start: 01-27-2025 End: 01-27-2026 CBC W Auto Differential panel - Blood CBC auto differential Lab Routine Encounter for long-term (current) use of medications Expected: 01/27/2025 (Approximate), Expires: 01/27/2026 [facility] Work Phone: Comment on above: Expected: 01/27/2025 (Approximate), Expi res: 01/27/2026 Start: 01-27-2025 End: 01-27-2026 Comprehensive metabolic 1998 panel - Serum or Plasma Comprehensive metabolic panel Lab Routine Encounter for long-term (current) use of medications Expected: 01/27/2025 (Approximate), Expires: 01/27/2026 [facility] [employer] Comment on above: Expected: 01/27/2025 (Approximate), Expi res: 01/27/2026 Start: 01-27-2025 End: 01-27-2026 Hepatitis A virus IgM Ab [Presence] in Serum or Plasma by Immunoassay Hepatitis A antibody, IgM Lab Routine Screening for viral disease Encounter for long-term (current) use of medications Expected: 01/27/2025 (Approximate), Expires: 01/27/2026 [facility] [employer] Comment on above: Expected: 01/27/2025 (Approximate), Expi res: 01/27/2026 Start: 01-27-2025 End: 01-27-2026 Hepatitis B virus core IgM Ab [Presence] in Serum or Plasma by Immunoassay Hepatitis B core antibody, IgM Lab Routine Screening for viral disease Encounter for long-term (current) use of medications Expected: 01/27/2025 (Approximate), Expires: 01/27/2026 [facility] [employer] Comment on above: Expected: 01/27/2025 (Approximate), Expi res: 01/27/2026 Start: 01-27-2025 End: 01-27-2026 Hepatitis B virus surface Ab [Units/volume] in Serum or Plasma by Immunoassay Hepatitis B surface antibody Lab Routine Screening for viral disease Encounter for long-term (current) use of medications Expected: 01/27/2025 (Approximate), Expires: 01/27/2026 [facility] [employer] Comment on above: Expected: 01/27/2025 (Approximate), Expi res: 01/27/2026 Start: 01-27-2025 End: 01-27-2026 Hepatitis B virus surface Ag [Presence] in Serum or Plasma by Immunoassay Hepatitis B surface antigen Lab Routine Screening for viral disease Encounter for long-term (current) use of medications Expected: 01/27/2025 (Approximate), Expires: 01/27/2026 [facility] Comment on above: Expected: 01/27/2025 (Approximate), Expi res: 01/27/2026 Start: 01-27-2025 End: 01-27-2026 Hepatitis C virus Ab [Presence] in Serum or Plasma by Immunoassay Hepatitis C antibody Lab Routine Screening for viral disease Encounter for long-term (current) use of medications Expected: 01/27/2025 (Approximate), Expires: 01/27/2026 [facility] [employer] Comment on above: Expected: 01/27/2025 (Approximate), Expi res: 01/27/2026 Start: 01-27-2025 End: 01-27-2026 HIV 1+2 Ab+HIV1 p24 Ag [Presence] in Serum or Plasma by Immunoassay HIV-1 and HIV-2 Antigen-Antibody Screen Lab Routine Screening for viral disease Encounter for long-term (current) use of medications Expected: 01/27/2025 (Approximate), Expires: 01/27/2026 [facility] [employer] Comment on above: Expected: 01/27/2025 (Approximate), Expi res: 01/27/2026 Start: 01-27-2025 End: 01-27-2026 QUANTIFERON TB GOLD QUANTIFERON TB GOLD Lab Routine Encounter for screening for respiratory tuberculosis Encounter for long-term (current) use of medications Expected: 01/27/2025 (Approximate), Expires: 01/27/2026 [facility] Comment on above: Expected: 01/27/2025 (Approximate), Expi res: 01/27/2026 Start: 01-27-2025 End: 01-27-2025 Patient encounter procedure 01/27/2025 1:00 PM EDT Office Visit [facility] - [place] [facility] [address] [place] [id number] Mishel Ortez PA-C [address] [place] [address] [facility] - [place] Start: 01-06-2025 End: 01-06-2025 Patient encounter procedure 01/06/2025 1:00 PM EDT Office Visit [facility] [facility] [address] [place] [phone] Gardenia Reyes PA-C [address] [place] [address] [facility] [place] Start: 12-12-2024 Hemoglobin A1c measurement Diabetes: Hemoglobin A1C [facility] Start: 11-11-2024 End: 11-11-2024 Patient encounter procedure 11/11/2024 10:30 AM EDT Office Visit Gastroenterology [address] [place] [address] Leticia Hylton DO [address] [place] [address] eating issues/gp Gastroenterology Comment on above: eating issues/gp Start: 09-12-2024 BP Controlled (<130/80) BP Controlled (<130/80) [facility] Start: 09-12-2024 Hemoglobin A1c measurement [facility] Start: 09-03-2024 End: 09-03-2024 Patient encounter procedure 09/03/2024 11:30 AM EST Office Visit Endocrinology [address] [place] [address] Jessica Guerrero APRN.TELEGRAPH SERVICE RATER [address] [place], [place] [id number] 6 month follow up Endocrinology Comment on above: 6 month follow up Start: 09-02-2024 End: 09-02-2024 ambulatory 09/02/2024 9:30 AM EST [facility] Gastroenterology [address] [place] [address] Leticia Hylton DO [address] [place] [address] gp f/u Gastroenterology Comment on above: gp f/u Start: 08-28-2024 Medicare Advantage Annual Wellness Visit Medicare [facility] Annual Wellness Visit [facility] Start: 08-15-2024 Diabetes: Estimated Glomerular Filtration Rate for Kidney Health Diabetes: Estimated Glomerular Filtration Rate for Kidney Health [facility] Start: 08-06-2024 End: 08-06-2024 Patient encounter procedure [facility] Start: 2024 Screening for malignant neoplasm of cervix HPV/Cotest [facility] Start: 07-23-2024 End: 07-23-2024 Nursing evaluation of patient and report 07/23/2024 9:00 AM EST Nurse Visit [facility] [address] [facility] [facility] [address] Vamsi Carson, RN [address] [id number] Type 1 diabetes mellitus with hyperglycemia, with [...] status Expected: 07/19/2024, Expires: 10/18/2024 [facility] Work Phone: Comment on above: Expected: 07/19/2024, Expires: Start: 07-19-2024 End: 10-18-2024 Hemoglobin A1c in Blood HEMOGLOBIN A1C Lab Routine Type 1 diabetes mellitus with hyperglycemia, with long-term current use of insulin (HCC) Insulin pump status Expected: 07/19/2024, Expires: 10/18/2024 [facility] Comment on above: Expected: 07/19/2024, Expires: 5 Start: 07-19-2024 End: 10-18-2024 Lipid 1996 panel - Serum or Plasma LIPID PANEL BASIC Lab Routine Type 1 diabetes mellitus with hyperglycemia, with long-term current use of insulin (HCC) Insulin pump status Expected: 07/19/2024, Expires: 10/18/2024 [facility] Comment on above: Expected: 07/19/2024, Expires: 5 Start: 07-19-2024 End: 10-18-2024 Microalbumin/Creatinine [Mass Ratio] in Urine ALBUMIN/CREATININE RATIO, URINE Lab Routine Type 1 diabetes mellitus with hyperglycemia, with long-term current use of insulin (HCC) Insulin pump status Expected: 07/19/2024, Expires: 10/18/2024 [facility] Comment on above: Expected: 07/19/2024, Expires: 5 Start: 07-19-2024 End: 07-19-2024 ambulatory 07/19/2024 1:30 PM EST [facility] Endocrinology [address] [place] [address] Jessica Guerrero APRN.TELEGRAPH SERVICE RATER [address] [place] [address] follw up Endocrinology Comment on above: follw up Start: 07-10-2024 End: 10-09-2024 Hepatitis C virus RNA [Units/volume] (viral load) in Serum or Plasma by DANIEL with probe detection [facility] Comment on above: Expected: 07/10/2024, Expires: Start: 07-10-2024 End: 10-09-2024 HIV 1+2 Ab [Presence] in Serum or Plasma by Immunoassay [facility] Work Phone: Comment on above: Expected: 07/10/2024, Expires: Start: 07-10-2024 End: 10-09-2024 SYPHILIS TREPONEMAL W/REFLEX [facility] Comment on above: Expected: 07/10/2024, Expires: 5 Start: 07-10-2024 End: 10-09-2024 Thyrotropin [Units/volume] in Serum or Plasma [facility] Comment on above: Expected: 07/10/2024, Expires: 5 Start: 07-10-2024 End: 07-10-2024 Patient encounter procedure 07/10/2024 11:10 AM EST Office Visit OB/Gynecology [address] [place] [address] Jason Paredes MD [address] [place] [address] Annual/ Referral in Scan Doc OB/Gynecology Comment on above: Annual/ Referral in Scan Doc Start: 06-13-2024 End: 06-13-2024 Patient encounter procedure 06/13/2024 3:00 PM EDT Office Visit Endocrinology [address] [facility] [place] [address] Jessica Guerrero, PACKING ATTENDANT.TELEGRAPH SERVICE RATER [address] [facility] [place] [address] 6 month follow up Endocrinology Comment on above: 6 month follow up Start: 06-13-2024 Hemoglobin A1c measurement HbA1C [facility] Start: 06-12-2024 Hemoglobin A1c measurement HbA1C [facility] Start: 05-31-2024 BP Controlled (<130/80) BP Controlled (<130/80) [facility] Start: 05-31-2024 Hemoglobin A1c measurement Diabetes: Hemoglobin A1C [facility] Start: 05-28-2024 End: 05-28-2024 Patient encounter procedure 05/28/2024 11:30 AM EDT Office Visit Endocrinology [address] [facility] [place] [address] Jessica Guerrero, PACKING ATTENDANT.TELEGRAPH SERVICE RATER [address] [facility] [place] [address] 2-3 month f/u Endocrinology Comment on above: 2-3 month f/u Start: 04-28-2024 COVID-19 Vaccine ( season) COVID-19 Vaccine ( season) [facility] Start: 04-28-2024 Covid-19 Vaccine ( season) Covid-19 Vaccine ( season) [facility] Start: 04-28-2024 Influenza vaccination [facility] Start: 04-16-2024 DTaP/Tdap/Td Vaccines (3 - Td or Tdap) DTaP/Tdap/Td Vaccines (3 - Td or Tdap) [facility] Start: 04-16-2024 Urine microalbumin profile [facility] Start: 03-12-2024 Hemoglobin A1c measurement HbA1C [facility] Start: 03-12-2024 End: 03-12-2024 Patient encounter procedure 03/12/2024 2:00 PM EDT Office Visit Endocrinology [address] [place] [address] Kvng Lewis MD [address] [place] [address] follow up Endocrinology Comment on above: follow up Start: 02-08-2024 BP CONTROLLED (<130/80) BP CONTROLLED (<130/80) [facility] Start: 02-01-2024 End: 02-01-2024 Patient encounter procedure 02/01/2024 10:00 AM EDT Office Visit [facility] Dermatology [address] [place] [phone] Leesa Huddleston PA-C [address] [place], [place] [id number] [facility] Start: 01-26-2024 BP CONTROLLED (<130/80) BP CONTROLLED (<130/80) [facility] Start: 01-21-2024 ANNUAL PCP TEAM CHRONIC DISEASE VISIT ANNUAL PCP TEAM CHRONIC DISEASE VISIT [facility] Start: 01-21-2024 BP CONTROLLED (<130/80) BP CONTROLLED (<130/80) [facility] Start: 12-09-2023 ANNUAL PCP TEAM CHRONIC DISEASE VISIT ANNUAL PCP TEAM CHRONIC DISEASE VISIT [facility] Start: 11-30-2023 Hemoglobin A1c measurement HbA1C [facility] Start: 11-30-2023 Hemoglobin A1c/Hemoglobin.total in Blood HbA1C [facility] Start: 11-14-2023 End: 11-14-2023 Patient encounter procedure 11/14/2023 10:20 AM EDT Office Visit [facility] Dermatology [address] [place] [phone] Leesa Huddleston PA-C [address] [place] [address] [facility] Start: 11-08-2023 BP CONTROLLED (<130/80) BP CONTROLLED (<130/80) [facility] Start: 10-25-2023 [facility] Start: 10-25-2023 Suicide precautions [facility] Start: 10-18-2023 Patient discharge [facility] Start: 10-17-2023 [facility] Start: 10-17-2023 Venous catheter care management [facility] Start: 10-17-2023 Assessment of risk of venous thromboembolism [facility] Start: 10-17-2023 Continuous pulse oximetry [facility] Start: 10-17-2023 Insertion of catheter into peripheral vein [facility] Start: 10-17-2023 Measuring intake and output [facility] Start: 10-17-2023 Notification of physician [facility] Start: 10-17-2023 Patient education [facility] Start: 10-17-2023 Patient referral to dietitian [facility] Start: 10-17-2023 Providing care according to standard [facility] Start: 10-17-2023 Referral to occupational therapist [facility] Start: 10-17-2023 Referral to service [facility] Start: 10-17-2023 Vital signs measurements [place] Start: 10-17-2023 [facility] Start: 10-17-2023 Verification routine [facility] Start: 10-17-2023 Admission procedure [facility] Start: 10-17-2023 Hospital admission, emergency, from emergency room, medical nature [facility] Start: 10-17-2023 [facility] Start: 09-25-2023 Venous catheter care management [facility] Start: 09-25-2023 [facility] Start: 09-20-2023 [facility] Start: 09-06-2023 Venous catheter care management [facility] Start: 09-06-2023 [facility] Start: 08-28-2023 Behavioral Health Screening Behavioral Health Screening [facility] Start: 08-28-2023 Depression Assessment Depression Assessment [facility] Start: 08-28-2023 Medicare Advantage Annual Wellness Visit Medicare Advantage Annual Wellness Visit [facility] Start: 08-22-2023 [facility] Start: 08-22-2023 [facility] Start: 08-22-2023 Venous catheter care management [facility] Start: 08-16-2023 3 comp foot exam completed DIABETIC FOOT EXAM [facility] Start: 08-16-2023 BP CONTROLLED (<130/80) BP CONTROLLED (<130/80) [facility] Start: 08-16-2023 Diabetic foot examination Diabetic Foot Exam [facility] Start: 08-15-2023 End: 08-15-2023 Patient encounter procedure [facility] Start: 08-10-2023 Patient discharge [facility] Start: 08-10-2023 End: 08-10-2023 [facility] Start: 08-09-2023 Care planning and problem solving actions [facility] Start: 08-09-2023 Provision of activity privileges [facility] Start: 08-08-2023 [facility] Start: 08-08-2023 Blood chemistry [facility] Start: 08-08-2023 [facility] Start: 08-07-2023 Care planning and problem solving actions [facility] Start: 08-07-2023 Blood chemistry [facility] Start: 08-07-2023 Blood chemistry [facility] Start: 08-07-2023 Care planning and problem solving actions [facility] Start: 08-07-2023 Blood chemistry [facility] Start: 08-07-2023 Blood chemistry [facility] Start: 08-07-2023 Acetone [Presence] in Serum or Plasma [facility] Start: 08-07-2023 Gas panel - Arterial blood [facility] Start: 08-07-2023 Blood chemistry [facility] Start: 08-07-2023 Application of intermittent pneumatic compression device [facility] Start: 08-07-2023 Enteric precautions [facility] Start: 08-07-2023 Following clinical pathway protocol [facility] Start: 08-07-2023 Hemoglobin A1c/Hemoglobin.total in Blood [facility] Start: 08-07-2023 Lab findings surveillance [facility] Start: 08-07-2023 Notification of physician [facility] Start: 08-07-2023 Patient education [facility] Start: 08-07-2023 Taking nasal swab [facility] Start: 08-07-2023 Vital signs measurements [place] Start: 08-07-2023 [facility] Start: 08-07-2023 Aspiration precautions [facility] Start: 08-07-2023 Blood chemistry [facility] Start: 08-07-2023 Admission procedure [facility] Start: 08-06-2023 Venous catheter care management [facility] Start: 08-06-2023 Gas panel - Venous blood [place] Start: 08-06-2023 [facility] Start: 08-06-2023 Venous catheter care management [facility] Start: 07-27-2023 Hemoglobin A1c/Hemoglobin.total in Blood HBA1C [facility] Start: 06-26-2023 Venous catheter care management [facility] Start: 06-26-2023 [facility] Start: 06-25-2023 End: 06-25-2023 [facility] Start: 06-07-2023 BP CONTROLLED (<130/80) BP CONTROLLED (<130/80) [facility] Start: 05-10-2023 BP CONTROLLED (<130/80) BP CONTROLLED (<130/80) [facility] Start: 05-06-2023 Blood chemistry [facility] Start: 05-05-2023 Blood chemistry [facility] Start: 05-04-2023 Blood chemistry [facility] Start: 05-03-2023 Venous catheter care management [facility] Start: 05-03-2023 Blood chemistry [facility] Start: 05-02-2023 Blood chemistry [facility] Start: 05-01-2023 Blood chemistry [facility] Start: 04-30-2023 Blood chemistry [facility] Start: 04-29-2023 Patient discharge [facility] Start: 04-29-2023 Venous catheter care management [facility] Start: 04-28-2023 Care regimes management [facility] Start: 04-28-2023 Notification of physician [facility] Start: 04-28-2023 End: 04-28-2023 [facility] Start: 04-28-2023 Covid-19 Vaccine () Covid-19 Vaccine ( season) [facility] Start: 04-28-2023 Influenza vaccination [facility] Start: 04-28-2023 Urine culture Urine Culture [facility] Start: 04-28-2023 [facility] Start: 04-27-2023 Following clinical pathway protocol [facility] Start: 04-27-2023 Ambulation without limitation [facility] Start: 04-27-2023 Assessment of risk of venous thromboembolism [facility] Start: 04-27-2023 Insertion of catheter into peripheral vein [facility] Start: 04-27-2023 Providing care according to standard [facility] Start: 04-27-2023 [facility] Start: 04-27-2023 Verification routine [facility] Start: 04-27-2023 Admission procedure [facility] Start: 04-27-2023 [facility] Start: 04-27-2023 Venous catheter care management [facility] Start: 04-27-2023 Consultation [facility] Start: 04-27-2023 Patient referral to dietitian [facility] Start: 04-23-2023 Venous catheter care management [facility] Start: 04-18-2023 Adult depression screening assessment DEPRESSION SCREENING [facility] Start: 04-18-2023 ANNUAL PCP TEAM CHRONIC DISEASE VISIT ANNUAL PCP TEAM CHRONIC DISEASE VISIT [facility] Start: 04-18-2023 BP CONTROLLED (<130/80) BP CONTROLLED (<130/80) [facility] Start: 02-14-2023 Hemoglobin A1c/Hemoglobin.total in Blood HBA1C [facility] Start: 01-25-2023 End: 03-27-2023 ALBUMIN/CREAT RATIO RND UR ALBUMIN/CREAT RATIO RND UR Lab Routine Type 1 diabetes mellitus with hyperglycemia, with long-term current use of insulin (HCC) Expected: 01/25/2023, Expires: 03/27/2023 [facility] Work Phone: Comment on above: Expected: 01/25/2023, Expires: Start: 10-04-2022 End: 10-04-2023 CBC W Auto Differential panel - Blood CBC auto differential Lab Routine Psoriasis vulgaris Encounter for long-term current use of high risk medication Expected: 10/04/2022 (Approximate), Expires: 10/04/2023 [facility] [employer] [facility] Work Phone: Comment on above: Expected: 10/04/2022 (Approximate), Expi res: 10/04/2023 Start: 10-04-2022 End: 02-07-2024 Comprehensive metabolic 1998 panel - Serum or Plasma Comprehensive metabolic panel Lab Routine Psoriasis vulgaris Encounter for long-term current use of high risk medication Expected: 10/04/2022 (Approximate), Expires: 10/04/[address] [facility] [employer] Comment on above: Expected: 10/04/2022 (Approximate), Expi res: 10/04/2023 Start: 10-04-2022 End: 10-04-2023 Hepatitis A virus IgM Ab [Presence] in Serum or Plasma by Immunoassay Hepatitis A antibody, IgM Lab Routine Psoriasis vulgaris Encounter for long-term current use of high risk medication Screening for viral disease Expected: 10/04/2022 (Approximate), Expires: 10/04/2023 [facility] [employer] Comment on above: Expected: 10/04/2022 (Approximate), Expi res: 10/04/2023 Start: 10-04-2022 End: 10-04-2023 Hepatitis B virus core IgM Ab [Presence] in Serum or Plasma by Immunoassay Hepatitis B core antibody, IgM Lab Routine Psoriasis vulgaris Encounter for long-term current use of high risk medication Screening for viral disease Expected: 10/04/2022 (Approximate), Expires: 10/04/2023 [employer] Comment on above: Expected: 10/04/2022 (Approximate), Expi res: 10/04/2023 Start: 10-04-2022 End: 10-04-2023 Hepatitis B virus surface Ab [Units/volume] in Serum or Plasma by Immunoassay Hepatitis B surface antibody Lab Routine Psoriasis vulgaris Encounter for long-term current use of high risk medication Screening for viral disease Expected: 10/04/2022 (Approximate), Expires: 10/04/2023 [employer] Comment on above: Expected: 10/04/2022 (Approximate), Expi res: 10/04/2023 Start: 10-04-2022 End: 10-04-2023 Hepatitis B virus surface Ag [Presence] in Serum or Plasma by Immunoassay Hepatitis B surface antigen Lab Routine Psoriasis vulgaris Encounter for long-term current use of high risk medication Screening for viral disease Expected: 10/04/2022 (Approximate), Expires: 10/04/2023 [facility] [employer] Comment on above: Expected: 10/04/2022 (Approximate), Expi res: 10/04/2023 Start: 10-04-2022 End: 10-04-2023 Hepatitis C virus Ab [Presence] in Serum or Plasma by Immunoassay Hepatitis C antibody Lab Routine Psoriasis vulgaris Encounter for long-term current use of high risk medication Screening for viral disease Expected: 10/04/2022 (Approximate), Expires: 10/04/2023 [employer] Comment on above: Expected: 10/04/2022 (Approximate), Expi res: 10/04/2023 Start: 10-04-2022 End: 10-04-2023 HIV 1+2 Ab+HIV1 p24 Ag [Presence] in Serum or Plasma by Immunoassay HIV-1 and HIV-2 Antigen-Antibody Screen Lab Routine Psoriasis vulgaris Encounter for long-term current use of high risk medication Screening for viral disease Expected: 10/04/2022 (Approximate), Expires: 10[facility]04[facility] [facility] on above: Expected: 10/04/2022 (Approximate), Expi res: 10/04/2023 Start: 10-04-2022 End: 10-04-2023 QUANTIFERON TB GOLD QUANTIFERON TB GOLD Lab Routine Psoriasis vulgaris Encounter for long-term current use of high risk medication Expected: 10/04/2022 (Approximate), Expires: 10/04/2023 [facility] [employer] Comment on above: Expected: 10/04/2022 (Approximate), Expi res: 10/04/2023 Start: 08-28-2022 DEPRESSION ASSESSMENT DEPRESSION ASSESSMENT [facility] Start: 07-11-2022 End: 09-10-2022 Hemoglobin A1c in Blood HGB A1C Lab Routine Type 1 diabetes mellitus with hyperglycemia (HCC) Insulin pump status Expected: 07/11/2022, Expires: 09/10/2022 [facility] Work Phone: Comment on above: Expected: 07/11/2022, Expires: 3 Start: 07-11-2022 End: 09-10-2022 THYROID PEROXIDASE ANTIBODY BLOOD THYROID PEROXIDASE ANTIBODY BLOOD Lab Routine Type 1 diabetes mellitus with hyperglycemia (HCC) Insulin pump status Abnormal results of thyroid function studies Expected: 07/11/2022, Expires: 09/10/2022 [facility] Work Phone: Comment on above: Expected: 07/11/2022, Expires: 3 Start: 07-11-2022 End: 09-10-2022 Thyrotropin [Units/volume] in Serum or Plasma TSH BLD Lab Routine Type 1 diabetes mellitus with hyperglycemia (HCC) Insulin pump status Abnormal results of thyroid function studies Expected: 07/11/2022, Expires: 09/10/2022 [facility] Work Phone: Comment on above: Expected: 07/11/2022, Expires: 3 Start: 07-11-2022 End: 09-10-2022 Thyroxine (T4) free [Mass/volume] in Serum or Plasma T4 FREE/FREE THYROX Lab Routine Type 1 diabetes mellitus with hyperglycemia (HCC) Insulin pump status Abnormal results of thyroid function studies Expected: 07/11/2022, Expires: 09/10/2022 [facility] Work Phone: Comment on above: Expected: 07/11/2022, Expires: 3 Start: 07-02-2022 Hemoglobin A1c/Hemoglobin.total in Blood HBA1C [facility] Start: 04-28-2022 Influenza vaccination [facility] Start: 04-18-2022 End: 06-18-2022 Chlamydia trachomatis+Neisseria gonorrhoeae DNA [Presence] in Urine by DANIEL with probe detection GC/CHLAMYDIA AMPLIF, URINE Microbiology Routine Menstrual irregularity Screening for STD (sexually transmitted disease) Expected: 04/18/2022, Expires: 06/18/2022 [facility] Work Phone: Comment on above: Expected: 04/18/2022, Expires: 2 Start: 04-18-2022 End: 06-18-2022 Choriogonadotropin ( test) [Presence] in Urine HCG QUAL UR Lab Routine Menstrual irregularity Expected: 04/18/2022, Expires: 06/18/2022 [facility] Work Phone: Comment on above: Expected: 04/18/2022, Expires: 2 Start: 02-04-2022 Hepatitis B surface antibody level LDL CHOLESTEROL [facility] Start: 08-28-2021 DEPRESSION ASSESSMENT DEPRESSION ASSESSMENT [facility] Start: 09-30-2021 Hemoglobin A1c/Hemoglobin.total in Blood HBA1C [facility] Start: 12-23-2020 Glaucoma screening Dilated Retinal Exam [facility] Start: 12-23-2020 Hepatitis C antibody, confirmatory test DILATED RETINAL EXAM [facility] Start: 03-30-2019 PAP TESTING PAP TESTING [facility] Start: 03-21-2018 Diabetes: Urine Albumin-Creatinine Ratio for Kidney Health Diabetes: Urine Albumin-Creatinine Ratio for Kidney Health [facility] Start: 03-21-2018 Hepatitis B screening URINE ALBUMIN:CREATININE RATIO [facility] Start: 11-23-2016 Adult depression screening assessment DEPRESSION SCREENING [facility] Start: 11-12-2016 3 comp foot exam completed DIABETIC FOOT EXAM [facility] Start: 01-01-2014 PNEUMOCOCCAL (2 - PCV) PNEUMOCOCCAL (2 - PCV) [facility] Start: 01-01-2014 Pneumococcal vaccination [facility] Start: 2013 HEPATITIS B (1 of 3 - Risk 3-dose series) HEPATITIS B (1 of 3 - Risk 3-dose series) [facility] Start: 2013 Hepatitis B Vaccine (1 of 3 - 19+ 3-dose series) Hepatitis B Vaccine (1 of 3 - 19+ 3-dose series) [facility] Start: 2013 Hepatitis B Vaccines (1 of 3 - 19+ 3-dose series) Hepatitis B Vaccines (1 of 3 - 19+ 3-dose series) [facility] Start: 2013 Urine screening for protein Diabetes: Urine Protein Screening [facility] Start: 12-11-2012 HPV Vaccine (3 - 3-dose series) HPV Vaccine (3 - 3-dose series) [facility] Start: 12-11-2012 HPV Vaccines (3 - 3-dose series) HPV Vaccines (3 - 3-dose series) [facility] Start: 11-06-2012 Hepatitis A Vaccines (2 of 2 - 2-dose series) Hepatitis A Vaccines (2 of 2 - 2-dose series) [facility] Start: 2012 ANNUAL PCP TEAM CHRONIC DISEASE VISIT ANNUAL PCP TEAM CHRONIC DISEASE VISIT [facility] Start: 2012 BP CONTROLLED (<130/80) BP CONTROLLED (<130/80) [facility] Start: 2012 Depression Screening Depression Screening [facility] Start: 2012 Diabetes: Urine Albumin-Creatinine Ratio for Kidney Health Diabetes: Urine Albumin-Creatinine Ratio for Kidney Health [facility] Start: 2012 Hepatitis B surface antibody level LDL CHOLESTEROL [facility] Start: 2007 Varicella vaccination Varicella Vaccines (1 of 2 - 13+ 2-dose series) [facility] Start: 2006 Depression Monitoring Depression Monitoring [facility] Start: 2006 Depression Screening Depression Screening [facility] Start: 2004 Diabetic foot examination Diabetes: Foot Exam [facility] Start: 2004 Glaucoma screening Diabetes: Retinopathy Screening [facility] Start: 2004 Preventive dental service Diabetes: Dental Exam [facility] Start: 2000 PNEUMOCOCCAL (1 - PCV) PNEUMOCOCCAL (1 - PCV) [facility] Start: 1999 COVID-19 VACCINE (#1) COVID-19 VACCINE (#1) [facility] Start: 1999 COVID-19 VACCINE (1) COVID-19 VACCINE (1) [facility] Start: 1995 MMR Vaccines (1 of 1 - Standard series) MMR Vaccines (1 of 1 - Standard series) [facility] Start: 1995 Varicella vaccination Varicella Vaccines (1 of 2 - 2-dose childhood series) [facility] Start: 01-27-1995 COVID-19 VACCINE (#1) COVID-19 VACCINE (#1) [facility] Start: 1994 Hemoglobin A1c measurement Diabetes: Hemoglobin A1C [facility] Start: 1994 HEPATITIS B (1 of 3 - 3-dose series) HEPATITIS B (1 of 3 - 3-dose series) [facility] Start: 1994 Hepatitis B Vaccine (1 of 3 - 3-dose series) Hepatitis B Vaccine (1 of 3 - 3-dose series) [facility] Start: 1994 Hepatitis B Vaccines (1 of 3 - 3-dose series) Hepatitis B Vaccines (1 of 3 - 3-dose series) [facility] Start: 1994 Lipid panel Lipid Panel [facility] Start: 1994 Medicare Advantage Annual Wellness Visit (AWV) Medicare Advantage Annual Wellness Visit (AWV) [facility] Anion gap measurement [facility] Anion gap measurement [facility] Anion gap measurement [facility] Anion gap measurement [facility] Anion gap measurement [facility] An[facility] gap measurement [facility] Anion gap measurement [facility] Anion gap measurement [facility] Anion gap measurement [facility] Anion gap measurement [facility] Anion gap measurement [facility] Anion gap measurement [facility] Anion gap measurement [facility] Anion gap measurement [facility] Bacteria identified in Urine by Culture URINE CULTURE Microbiology Routine Left flank pain Ordered: 01/25/2023 [place] [facility] Work Phone: Comment on above: Ordered: 01/25/2023 BUN/Creatinine ratio [facility] BUN/Creatinine ratio [facility] BUN/Creatinine ratio [facility] BUN/Creatinine ratio [facility] BUN/[facility] BUN/Creatinine [facility]UN[facility] BUN/Creatinine ratio [facility] Calcium [Mass/volume ] in Serum or Plasma [facility] Calcium [Mass/volume ] in Serum or Plasma [facility] Calcium [Mass/volume ] in Serum or Plasma [facility] Calcium [Mass/volume ] in Serum or Plasma [facility] Calcium [Mass/volume ] in Serum or Plasma [facility] Calcium [Mass/volume ] in Serum or Plasma [facility] Calcium [Mass/volume ] in Serum or Plasma [facility] Calcium [Mass/volume ] in Serum or Plasma [facility] Calcium [Mass/volume ] in Serum or Plasma [facility] Calcium [Mass/volume ] in Serum or Plasma [facility] Calcium [Mass/volume ] in Serum or Plasma [facility] Calcium [Mass/volume ] in Serum or Plasma [facility] Calcium [Mass/volume ] in Serum or Plasma [facility] Calcium [Mass/volume ] in Serum or Plasma [facility] Carbon dioxide, tota l [Moles/volume] in Serum or Plasma [facility] Carbon dioxide, tota l [Moles/volume] in Serum or Plasma [facility] Carbon dioxide, tota l [Moles/volume] in Serum or Plasma [facility] Carbon dioxide, tota l [Moles/volume] in Serum or Plasma [facility] Carbon dioxide, tota l [Moles/volume] in Serum or Plasma [facility] Carbon dioxide, tota l [Moles/volume] in Serum or Plasma [facility] Carbon dioxide, tota l [Moles/volume] in Serum or Plasma [facility] Carbon dioxide, tota l [Moles/volume] in Serum or Plasma [facility] Carbon dioxide, tota l [Moles/volume] in Serum or Plasma [facility] Carbon dioxide, tota l [Moles/volume] in Serum or Plasma [facility] Carbon dioxide, tota l [Moles/volume] in Serum or Plasma [facility] Carbon dioxide, tota l [Moles/volume] in Serum or Plasma [facility] Carbon dioxide, tota l [Moles/volume] in Serum or Plasma [facility] Carbon dioxide, tota l [Moles/volume] in Serum or Plasma [facility] Chlamydia trachomatis+Neisseria gonorrhoeae DNA [Presence] in Unspecified specimen by DANIEL with probe detection GC/CHLAMYDIA DNA DET Lab Routine Gonorrhea Screen for sexually transmitted diseases Ordered: 06/07/2022 [facility] Work Phone: Comment on above: Ordered: 06/07/2022 Chlamydia trachomatis+Neisseria gonorrhoeae DNA [Presence] in Unspecified specimen by DANIEL with probe detection GONORRHEA/CHLAMYDIA NAAT Lab Routine Encounter for gynecological examination (general) (routine) without abnormal findings Encounter for screening for malignant neoplasm of cervix Screening for human papillomavirus (HPV) Irregular menstrual bleeding Routine screening for STI (sexually transmitted infection) 07/10/2024 12:13 PM [facility] Chloride [Moles/volu me] in Serum or Plasma [facility] Chloride [Moles/volu me] in Serum or Plasma [facility] Chloride [Moles/volu me] in Serum or Plasma [facility] Chloride [Moles/volu me] in Serum or Plasma [facility] Chloride [Moles/volu me] in Serum or Plasma [facility] Chloride [Moles/volu me] in Serum or Plasma [facility] Chloride [Moles/volu me] in Serum or Plasma [facility] Chloride [Moles/volu me] in Serum or Plasma [facility] Chloride [Moles/volu me] in Serum or Plasma [facility] Chloride [Moles/volu me] in Serum or Plasma [facility] Chloride [Moles/volu me] in Serum or Plasma [facility] Chloride [Moles/volu me] in Serum or Plasma [facility] Chloride [Moles/volu me] in Serum or Plasma [facility] Chloride [Moles/volu me] in Serum or Plasma [facility] Clostridioides diffi cile DNA [Presence] in Unspecified specimen by DANIEL with probe detection [facility] Creatinine [Moles/vo lume] in Serum or Plasma [facility] Creatinine [Moles/vo lume] in Serum or Plasma [facility] Creatinine [Moles/vo lume] in Serum or Plasma [facility] Creatinine [Moles/vo lume] in Serum or Plasma [facility] Creatinine [Moles/vo lume] in Serum or Plasma [facility] Creatinine [Moles/vo lume] in Serum or Plasma [facility] Creatinine [Moles/vo lume] in Serum or Plasma [facility] Creatinine [Moles/vo lume] in Serum or Plasma [facility] Creatinine [Moles/vo lume] in Serum or Plasma [facility] Creatinine [Moles/vo lume] in Serum or Plasma [facility] Creatinine [Moles/vo lume] in Serum or Plasma [facility] Creatinine [Moles/vo lume] in Serum or Plasma [facility] Creatinine [Moles/vo lume] in Serum or Plasma [facility] Creatinine [Moles/vo lume] in Serum or Plasma [facility] Gastrointestinal pathogens panel - Stool by DANIEL with probe detection [facility] Glucose [Mass/volume ] in Serum or Plasma [facility] Glucose [Mass/volume ] in Serum or Plasma [facility] Glucose [Mass/volume ] in Serum or Plasma [facility] Glucose [Mass/volume ] in Serum or Plasma [facility] Glucose [Mass/volume ] in Serum or Plasma [facility] Glucose [Mass/volume ] in Serum or Plasma [facility] Glucose [Mass/volume ] in Serum or Plasma [facility] Glucose [Mass/volume ] in Serum or Plasma [facility] Glucose [Mass/volume ] in Serum or Plasma [facility] Glucose [Mass/volume ] in Serum or Plasma [facility] Glucose [Mass/volume ] in Serum or Plasma [facility] Glucose [Mass/volume ] in Serum or Plasma [facility] Glucose [Mass/volume ] in Serum or Plasma [facility] Glucose [Mass/volume ] in Serum or Plasma [facility] Hematocrit [Volume Fraction] of Blood [facility] Hematocrit [Volume Fraction] of Blood [facility] Hematocrit [Volume Fraction] of Blood [facility] Hematocrit [Volume Fraction] of Blood [facility] Hematocrit [Volume Fraction] of Blood [facility] Hematocrit [Volume Fraction] of Blood [facility] Hematocrit [Volume Fraction] of Blood [facility] Hemoglobin [Mass/vol ume] in Blood [facility] Hemoglobin [Mass/vol ume] in Blood [facility] Hemoglobin [Mass/vol ume] in Blood [facility] Hemoglobin [Mass/vol ume] in Blood [facility] Hemoglobin [Mass/vol ume] in Blood [facility] Hemoglobin [Mass/vol ume] in Blood [facility] Hemoglobin [Mass/vol ume] in Blood [facility] Hemoglobin A1c/Hemoglobin.total in Blood HEMOGLOBIN A1C (POC) Lab Routine Type 1 diabetes mellitus with hyperglycemia, with long-term current use of insulin (HCC) Ordered: 03/12/2024 [facility] Work Phone: Comment on above: Ordered: 03/12/2024 Lactoferrin [Presenc e] in Stool by Immunoassay [facility] Leukocytes [#/volume ] in Blood [facility] Leukocytes [#/volume ] in Blood [facility] Leukocytes [#/volume ] in Blood [facility] Leukocytes [#/volume ] in Blood [facility] Leukocytes [#/volume ] in Blood [facility] Leukocytes [#/volume ] in Blood [facility] Leukocytes [#/volume ] in Blood [facility] Magnesium [Mass/volu me] in Serum or Plasma [facility] Mean corpuscular hemoglobin concentration determination [facility] Mean corpuscular hemoglobin concentration determination [facility] Mean corpuscular hemoglobin concentration determination [facility] Mean corpuscular hemoglobin concentration determination [facility] Mean corpuscular hemoglobin concentration determination [facility] Mean corpuscular hemoglobin concentration determination [facility] Mean corpuscular hemoglobin concentration determination [facility] Mean corpuscular hemoglobin determination [facility] Mean corpuscular hemoglobin determination [facility] Mean corpuscular hemoglobin determination [facility] Mean corpuscular hemoglobin determination [facility] Mean corpuscular hemoglobin determination [facility] Mean corpuscular hemoglobin determination [facility] Mean corpuscular hemoglobin determination [facility] Measurement of renal function [facility] Measurement of renal function [facility] Measurement of renal function [facility] Measurement of renal function [facility] Measurement of renal function [facility] Measurement of renal function [facility] Measurement of renal function [facility] Measurement of renal function [facility] Measurement of renal function [facility] Measurement of renal function [facility] Measurement of renal function [facility] Measurement of renal function [facility] Measurement of renal function [facility] Measurement of renal function [facility] Neutrophil count [facility] Neutrophil count [facility] Neutrophil count [facility] Neutrophil count [facility] Neutrophil count [facility] Neutrophil count [facility] Neutrophil count [facility] Neutrophil percent differential count [facility] Neutrophil percent differential count [facility] Neutrophil percent differential count [facility] Neutrophil percent differential count [facility] Neutrophil percent differential count [facility] Neutrophil percent differential count [facility] Neutrophil percent differential count [facility] Ova and parasites identified in Unspecified specimen by Light microscopy [facility] PAP TEST PAP TEST Lab [facility] Encounter for screening for malignant neoplasm of cervix Screening for human papillomavirus (HPV) 07/10/2024 12:13 PM EST [facility] Patient Education [facility] Work Phone: Patient referral [facility] Work Phone: Platelets [#/volume] in Blood [facility] Platelets [#/volume] in Blood [facility] Platelets [#/volume] in Blood [facility] Platelets [#/volume] in Blood [facility] Platelets [#/volume] in Blood [facility] Platelets [#/volume] in Blood [facility] Platelets [#/volume] in Blood [facility] Potassium [Moles/vol ume] in Serum or Plasma [facility] Potassium [Moles/vol ume] in Serum or Plasma [facility] Potassium [Moles/vol ume] in Serum or Plasma [facility] Potassium [Moles/vol ume] in Serum or Plasma [facility] Potassium [Moles/vol ume] in Serum or Plasma [facility] Potassium [Moles/vol ume] in Serum or Plasma [facility] Potassium [Moles/vol ume] in Serum or Plasma [facility] Potassium [Moles/vol ume] in Serum or Plasma [facility] Potassium [Moles/vol ume] in Serum or Plasma [facility] Potassium [Moles/vol ume] in Serum or Plasma [facility] Potassium [Moles/vol ume] in Serum or Plasma [facility] Potassium [Moles/vol ume] in Serum or Plasma [facility] Potassium [Moles/vol ume] in Serum or Plasma [facility] Potassium [Moles/vol ume] in Serum or Plasma [facility] Red blood cell count [facility] Red blood cell count [facility] Red blood cell count [facility] Red blood cell count [facility] Red blood cell count [facility] Red blood cell count [facility] Red blood cell count [facility] Red cell distributio n width determination [facility] Red cell distributio n width determination [facility] Red cell distributio n width determination [facility] Red cell distributio n width determination [facility] Red cell distributio n width determination [facility] Red cell distributio n width determination [facility] Red cell distributio n width determination [facility] Respiratory pathogen s DNA and RNA panel - Respiratory specimen by DANIEL with probe detection [facility] Sodium [Moles/volume ] in Serum or Plasma [facility] Sodium [Moles/volume ] in Serum or Plasma [facility] Sodium [Moles/volume ] in Serum or Plasma [facility] Sodium [Moles/volume ] in Serum or Plasma [facility] Sodium [Moles/volume ] in Serum or Plasma [facility] Sodium [Moles/volume ] in Serum or Plasma [facility] Sodium [Moles/volume ] in Serum or Plasma [facility] Sodium [Moles/volume ] in Serum or Plasma [facility] Sodium [Moles/volume ] in Serum or Plasma [facility] Sodium [Moles/volume ] in Serum or Plasma [facility] Sodium [Moles/volume ] in Serum or Plasma [facility] Sodium [Moles/volume ] in Serum or Plasma [facility] Sodium [Moles/volume ] in Serum or Plasma [facility] Sodium [Moles/volume ] in Serum or Plasma [facility] T VAGINALIS AMPLIFICATION T VAGI NALIS AMPLIFICATION Lab Routine Screening for STD (sexually transmitted disease) Ordered: 04/18/2022 [facility] Work Phone: Comment on above: Ordered: 04/18/2022 TRICHOMONAS VAGINALI S NAAT TRICHOMONAS VAGINALIS NAAT Lab Routine Encounter for gynecological examination (general) (routine) without abnormal findings Encounter for screening for malignant neoplasm of cervix Screening for human papillomavirus (HPV) Irregular menstrual bleeding Routine screening for STI (sexually transmitted infection) 07/10/2024 12:13 PM [facility] Urea nitrogen [Mass/volume] in Serum or Plasma [facility] Urea nitrogen [Mass/volume] in Serum or Plasma [facility] Urea nitrogen [Mass/volume] in Serum or Plasma [facility] Urea nitrogen [Mass/volume] in Serum or Plasma [facility] Urea nitrogen [Mass/volume] in Serum or Plasma [facility] Urea nitrogen [Mass/volume] in Serum or Plasma [facility] Urea nitrogen [Mass/volume] in Serum or Plasma [facility] Urea nitrogen [Mass/volume] in Serum or Plasma [facility] Urea nitrogen [Mass/volume] in Serum or Plasma [facility] Urea nitrogen [Mass/volume] in Serum or Plasma [facility] Urea nitrogen [Mass/volume] in Serum or Plasma [facility] Urea nitrogen [Mass/volume] in Serum or Plasma [facility] Urea nitrogen [Mass/volume] in Serum or Plasma [facility] Urea nitrogen [Mass/volume] in Serum or Plasma 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: [facility] Work Phone: 11-05-2019 influenza virus vacc ine, unspecified formulation Leesa Huddleston PA-C Work Phone: [facility] 06-14-2016 influenza, seasonal, injectable 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: [facility] Work Phone: 05-30-2016 influenza nasal, unspecified formulation 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: [facility] Work Phone: 05-30-2016 influenza virus vacc ine, unspecified formulation ANITA COMER MD [facility] 06-05-2015 influenza, seasonal, injectable, preservative free Autumn Valadez PACKING ATTENDANT.[facility] Work Phone: [facility] Work Phone: 05-23-2014 influenza virus vacc ine, unspecified formulation Leesa Huddleston PA-C Work Phone: [facility] 05-23-2014 influenza, seasonal, injectable [facility]cf Provider [facility] Work Phone: 04-16-2014 tetanus toxoid, redu luis eduardo diphtheria toxoid, and acellular pertussis vaccine, adsorbed [facility]cf Provider [facility] 01-01-2013 pneumococcal polysaccharide vaccine, 23 valent 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: [facility] Work Phone: 08-11-2012 human papilloma viru s vaccine, quadrivalent Autumn Valadez PACKING ATTENDANT.[facility] Work Phone: [facility] Work Phone: 08-11-2012 HPV, unspecified formulation Leesa Huddleston PA-C Work Phone: [facility] 06-12-2012 human papilloma viru s vaccine, quadrivalent Autumn Valadez PACKING ATTENDANT.[facility] Work Phone: [facility] Work Phone: 05-09-2012 hepatitis A vaccine, pediatric/adolescent dosage, 2 dose schedule Autumn Valadez PACKING ATTENDANT.[facility] Work Phone: [facility] Work Phone: 05-09-2012 hepatitis A and hepatitis B vaccine Leesa Huddleston PA-C Work Phone: [facility] 11-03-2009 meningococcal polysaccharide (groups A, C, Y and W-135) diphtheria toxoid conjugate vaccine (MCV4P) Autumn Valadez PACKING ATTENDANT.[facility] Work Phone: [facility] Work Phone: 11-03-2009 tetanus toxoid, redu luis eduardo diphtheria toxoid, and acellular pertussis vaccine, adsorbed Autumn Valadez PACKING ATTENDANT.[facility] Work Phone: [facility] Work Phone: Payers Date Payer Category Payer Self-pay 2022 Medicare HMO [employer] [facility] MEDIC[facility] [id number] 2019 Medicare (Managed Care) [facility] [id number]. [id number] 2019 Medicare [id number] 2017 Medicaid [id number]. 1.13.159.2. [id number] 2017 Medicare [id number] [id number]. [id number] 2017 Medicare 1.2.840.740399. 1.13.159.2. [id number] 2012 Medicaid [id number] 1994 Unknown [id number] 2.16.840.1.180793.3.579.2. 903 Unknown [id number] 2.16.840.1.723779.3.579.2. 462 Unknown [id number] 2.16.840.1.554576.3.579.2. 462 Unknown [id number] 2.16.840.1.562179.3.579.2. 462 Unknown [id number] 2.16.840.1.639653.3.579.2. 462 Unknown [id number] 2.16.840.1.622285.3.579.2. 462 Unknown [id number] 2.16.840.1.737315.3.579.2. 462 Unknown [id number] 2.16.840.1.039802.3.579.2. 462 Unknown [id number] 2.16.840.1.826586.3.579.2. 462 Unknown [id number] 2.16.840.1.476044.3.579.2. 462 Unknown [id number] 2.16.840.1.329704.3.579.2. 462 Unknown [id number] 2.16.840.1.090212.3.579.2. 462 Unknown [id number] 2.16840.1.538342.3.579.2. 462 Unknown [id number] 2.16840.1.635646.3.579.2. 462 Unknown [id number] 2.840.1.135990.3.579.2. 462 Unknown [id number] 2.840.1.541017.3.579.2. 462 Unknown [id number] 2.840.1.715721.3.579.2. 462 Unknown [id number] 2.840.1.394677.3.579.2. 462 Unknown [id number] 2.840.1.986728.3.579.2. 462 Unknown [id number] 2.840.1.268298.3.579.2. 462 Unknown [id number] 2.840.1.025450.3.579.2. 462 Unknown [id number] 2.840.1.781704.3.579.2. 462 Unknown [id number] 2.840.1.125307.3.579.2. 462 Unknown [id number] 2.16840.1.253369.3.579.2. 462 Unknown [id number] 2.16840.1.368400.3.579.2. 462 Unknown [id number] 2.16840.1.504102.3.579.2. 462 Unknown [id number] 2.16840.1.387581.3.579.2. 462 Unknown [id number] 2.16.840.1.956315.3.579.2. 462 Unknown [id number] 2.16.840.1.929340.3.579.2. 462 Unknown [id number] 2.16.840.1.112903.3.579.2. 462 Unknown [id number] 2.16.840.1.430936.3.579.2. 462 Unknown [id number] 2.16.840.1.798853.3.579.2. 462 Unknown [id number] 2.16.840.1.125303.3.579.2. 462 Unknown [id number] 2.16.840.1.309821.3.579.2. 462 Unknown [id number] 2.16.840.1.482048.3.579.2. 462 Unknown [id number] 2.16.840.1.674671.3.579.2. 462 Unknown [id number] 2.16.840.1.674806.3.579.2. 462 Unknown [id number] 2.16.840.1.594851.3.579.2. 462 Unknown [id number] 2.16.840.1.279015.3.579.2. 462 Unknown [id number] 2.16.840.1.237965.3.579.2. 462 Unknown [id number] 2.16.840.1.242677.3.579.2. 462 Unknown [id number] 2.16.840.1.765739.3.579.2. 462 Unknown [id number] 2.16.840.1.840938.3.579.2. 462 Unknown [id number] 2.16.840.1.421083.3.579.2. 462 Unknown [id number] 2.16.840.1.731275.3.579.2. 462 Unknown [id number] 2.16.840.1.304242.3.579.2. 462 Unknown [id number] 2.16.840.1.708603.3.579.2. 462 Unknown [id number] 2.16.840.1.431185.3.579.2. 462 Unknown [id number] 2.16840.1.605561.3.579.2. 462 Unknown [id number] 2.16840.1.155454.3.579.2. 462 Unknown [id number] 2.16840.1.195829.3.579.2. 462 Unknown [id number] 2.840.1.038004.3.579.2. 462 Unknown [id number] 2.840.1.095266.3.579.2. 462 Unknown [id number] 2.840.1.186980.3.579.2. 462 Unknown [id number] 2.840.1.085455.3.579.2. 462 Unknown [id number] 2.840.1.130793.3.579.2. 462 Unknown [id number] 2.16840.1.618641.3.579.2. 462 Unknown [id number] 2.840.1.074921.3.579.2. 462 Unknown [id number] 2.840.1.397403.3.579.2. 462 Unknown [id number] 2.840.1.502953.3.579.2. 462 Unknown [id number] 2.840.1.097465.3.579.2. 462 Unknown [id number] 2.840.1.006255.3.579.2. 462 Social History Date Type Detail Facility Start: 12-31-2019 End: 07-10-2024 Tobacco smoking status NHIS Ex-smoker [facility] Start: 06-28-2011 End: 06-28-2019 History of tobacco use Current smoker [facility] Start: 06-28-2011 End: 06-28-2019 History of tobacco use Cigarette Smoker [facility] Start: 12-31-2019 End: 11-14-2023 Cigarettes smoked current (pack per day) - Reported 0.3 [facility] Start: 12-31-2019 End: 07-10-2024 Tobacco use and exposure Smokeless tobacco non-user [facility] Start: 11-25-2020 End: 10-22-2022 Alcohol intake Current non-drinker of alcohol (finding) [facility] Start: 11-02-2020 End: 02-03-2023 History SDOH Social Connections Phone 5 [facility] Start: 11-02-2020 End: 02-03-2023 History SDOH Social Connections Buddhist 1 [facility] Start: 11-02-2020 End: 02-03-2023 History SDOH Social Connections Membership 2 [facility] Start: 11-02-2020 History SDOH Social Connections Living 7 [facility] Start: 11-02-2020 History SDOH Physica l Activity DPW 4 [facility] Start: 11-02-2020 History SDOH Physica l Activity MPS 3 [facility] Start: 1995 Sex Assigned At Female C [facility] Start: 04-26-2023 End: 08-07-2023 Tobacco smoking status Tobacco smoking consumption unknown (finding) [facility] Sex [facility] Start: 02-25-2022 End: 10-04-2022 Exposure to SARS-CoV-2 (event) Not sure [facility] Start: 12-08-2022 End: 07-19-2024 Alcohol intake Current drinker of alcohol (finding) [facility] Start: 12-08-2022 Education 13 [facility] Start: 12-08-2022 Alcohol Comment very rarely [facility] Start: 03-20-2023 Tobacco smoking stat us NHIS Never smoked tobacco [facility] Start: 03-20-2023 End: 11-14-2023 Tobacco use panel [facility] Start: 03-20-2023 Alcohol Comment occasional [facility] Start: 1995 Sex Assigned At Not on file [facility] Start: 10-30-2020 Gender identity Identifies as female gender (finding) [facility] Start: 10-30-2020 Sexual orientation Bisexual (finding ) [facility] Start: 01-18-2021 End: 11-14-2023 Alcohol intake Ex-drinker (finding) [facility] Do you belong to any clubs or organizations such as nondenominational groups, unions, fraternal or athletic groups, or school groups? No [facility] Are you now , , , , never or living with a partner? Never [facility] How hard is it for y ou to pay for the very basics like food, housing, medical care, and heating Not hard at all [facility] Do you feel stress - tense, restless, nervous, or anxious, or unable to sleep at night because your mind is troubled all the time - these days [OSQ] Not at all [facility] (I/We) worried wheth er (my/our) food would run out before (I/we) got money to buy more. Never true [facility] In the past 12 month s, was there a time when you were not able to pay the mortgage or rent on time? Yes [facility] Start: 03-28-2022 Sex Female (finding) [facility] NEGATED: Highlighted row [facility] Medical Equipment Procedure Code Equipment Code Equipment Original Text Equipment Identifier Dates Graft Vasc 30cm 28mm [facility] [address] - [id number] Start: 12-09-2014 Comment on above: Description: ascendi ng aorta Slv Scler 30mm 2.4mm 1.5mm Dinorah - [id number] Start: 10-29-2012 Comment on above: Description: Style # 72 Silicone Sleeve Strip Scler [id number] Dinorah Strl - [id number] Start: 10-29-2012 Comment on above: Description: Style 4 050 Gas Io Ispan Vsn Sys 125gm Sf6 - [id number] Start: 10-29-2012 Comment on above: Description: SF6 gas 22% [place] Cv 6x6in Thk1.65mm Ptfe - [id number] Start: 12-09-2014 Lens Iol +15.5 Mary Jo 13mm 5.5mm - [id number] Start: 05-14-2014 [id number], [id number], [id number], [id number], [id number], [id number], [id number], [id number] Start: 05-18-2020 End: 06-25-2025 Comment on above: Use as instructed to check blood glucose 7 times daily. 10 x daily DX Code: O24.011 on insulin RUFINA voucher has been faxed Use as instructed to check blood glucose 5 times daily. E10.65 Use as instructed to test blood sugar 4 times daily. E10.65 Pen Needle, Diabetic (Ultra-Thin Ii Ins Pen [place]) 29 gauge x 1/2 needle Start: 08-10-2023 Pen Needle, Diabetic (Ultra-Thin Ii Ins Pen [place]) 29 gauge x 1/2 needle Start: 08-10-2023 Pen Needle, Diabetic (Ultra-Thin Ii Ins Pen [place]) 29 gauge x 1/2 needle Start: 08-10-2023 Pen Needle, Diabetic (Ultra-Thin Ii Ins Pen [place]) 29 gauge x 1/2 needle Start: 08-10-2023 Pen Needle, Diabetic (Ultra-Thin Ii Ins Pen [place]) 29 gauge x 1/2 needle Start: 08-10-2023 Pen Needle, Diabetic (Ultra-Thin Ii Ins Pen [place]) 29 gauge x 1/2 needle Start: 08-10-2023 Loop Recorder-[id number] Reveal [id number] Start: 09-15-2014 Goals Date Patient Goal Desired Activity /State Personal health goal Functional Status Date Assessment Result Facility 10-18-2023 Functional status Ambulates [facility] Work Phone: 08-10-2023 Functional status Up ad narendra [facility] Work Phone: 04-29-2023 Functional status Ambulates;Bedr est;Bathro om Privilege [facility] Work Phone: 02-04-2023 Are you deaf, or do you have serious difficulty hearing No 02/04/2023 2:39 PM Jhoana Mart RN No [facility] 02-04-2023 Are you blind, or do you have serious difficulty seeing, even when wearing glasses No 02/04/2023 2:39 PM EDT Jhoana Colunga, STIVEN No [facility] 02-04-2023 Do you have serious difficulty walking or climbing stairs No 02/04/2023 2:39 PM EDT Jhoana Colunga, STIVEN No [facility] 02-04-2023 Do you have difficul ty dressing or bathing No 02/04/2023 2:39 PM EDT Jhoana Colunga, STIVEN No [facility] 02-04-2023 Because of a physica l, mental, or emotional condition, do you have difficulty doing errands alone such as visiting a physician's office or shopping No 02/04/2023 2:39 PM EDT Jhoana Colunga RN No [facility] Mental Status Date Assessment Result Facility 10-17-2023 Cognitive function Awake;Alert;Appropriat e [facility] Work Phone: 09-20-2023 Cognitive function Level Of Cons ciousness Awake;Alert;Appropriate;Fol lows Commands [facility] Work Phone: 08-10-2023 Cognitive function Voice/Name [facility] Work Phone: 04-29-2023 Cognitive function Voice/Name [facility] Work Phone: 04-26-2023 Cognitive function Voice/Name [facility] Work Phone: 02-04-2023 Because of a physica l, mental, or emotional condition, do you have serious difficulty concentrating, remembering, or making decisions No 02/04/2023 2:39 PM EDT Jhoana Colunga RN No [facility] Clinical Notes 01-28-2016 to 05-05-2025 Mishel Ortez PA-C - 01/27/2025 1:00 PM EDTTelephone Encounter - Guero Hammer LPN - 11/11/2024 1:55 PM EDTTelephone Encounter - Guero Hammer LPN - 11/11/2024 1:55 PM EDT Note Date & Type Note Facility 05-05-2025 Note [facility] 03-19-2025 Note [facility] 03-17-2025 Note [facility] 03-08-2025 Note [facility] 03-05-2025 Note [facility] 02-21-2025 Note [facility] 01-27-2025 History of Present illness Narrative DATE OF SERVICE: 01/27/2025 PATIENT NAME: Kathleen Villa : 1995 AGE: 29 y.o. CLINIC NUMBER: [id number] Visit type: Established patient Chief Complaint Patient [...] Adhesive? Yes- adhesives. Social History: Born/raised in [place]. Excessive sun exposure: Yes Used tanning beds: [...] ingredient(s). 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 Patient advised [...] for this encounter. documented in this encounter [facility] 01-26-2025 Note [facility] 12-16-2024 Note [facility] 11-11-2024 Telephone encounter Note Please let her know that her x-ray demonstrates a significantly large amount of stool throughout the colon. I am going to send in Trulance for her to try spoke with patient and she is aware of new Rx was sent to pharmacy. Guero Hammer LPN [facility] 11-11-2024 Miscellaneous Notes Please let her know that her x-ray demonstrates a significantly large amount of stool throughout the colon. I am going to send in Trulance for her to try spoke with patient and she is aware of new Rx was sent to pharmacy. Guero Hammer LPN documented in this encounter [facility] 11-11-2024 History of Present illness Narrative Radiology [...] PATIENT PRESENTS WITH AN IMPLANTABLE OR ATTACHED DRUM CLEANER: No RADIOLOGY DEPARTMENT: General X-ray: Exam(s) Completed: Abdomen X-Ray: Abdomen PERIPHERAL IV DATA: Not applicable SIGNED BY: RT Eugenio(Aldo) November 11, 2024 11:07 AM documented in this encounter [facility] 11-11-2024 Note HNO ID: [id number] Author: VAMSI STEWART RT(R) Service: Radiology Author [...] PATIENT PRESENTS WITH AN IMPLANTABLE OR ATTACHED DRUM CLEANER: No RADIOLOGY DEPARTMENT: General X-ray: Exam(s) Completed: Abdomen X-Ray: Abdomen PERIPHERAL IV DATA: Not applicable SIGNED BY: RT Eugenio(R) November 11, 2024 11:07 AM [facility] 11-11-2024 Note HNO ID: [id number] Author: LETICIA HYLTON, DO Service: ? Author [...] every 24 hours. 38.7 mL 1 Insulin [place], Disposable, (PEN NEEDLE) 32 gauge x 5/32 [...] no edema RESPIRATORY: No dyspnea : neg PULVERIZER TENDER: neg The remainder of the review of [...] ABDOMEN 1V SUPINE (more content not included)... [facility] 11-11-2024 History of Present illness Narrative [...] every 24 hours. 38.7 mL 1 Insulin [place], Disposable, (PEN NEEDLE) 32 gauge x /32 [...] no edema RESPIRATORY: No dyspnea : neg PULVERIZER TENDER: neg The remainder of the review of [...] Hylton DO 11/11/2024 documented in this encounter [facility] 11-06-2024 Note [facility] 11-05-2024 Miscellaneous Notes Agree with ER. [...] on the phone. documented in this encounter [facility] 11-05-2024 Telephone encounter Note Agree with ER. The patient actually does not have gastroparesis although she keeps stating that she does. Her smart pill in 2020 demonstrated no evidence of gastroparesis. What she has is chronic constipation and abdominal pain. [facility] 11-05-2024 Telephone encounter Note Called patient and [...] functioning appropriately. Please advice. Guero Hammer LPN [facility] 11-05-2024 Telephone encounter Note Patient called and left v/m crying. States she has an appointment but is having some major issues and needs to talk to someone about what to do. She did not state what kinds of issues she is having however she was crying on the phone. [facility] Work Phone: 10-21-2024 Note [facility] 10-10-2024 Telephone encounter Note Form re-faxed per [facility] request [facility] 10-10-2024 Miscellaneous Notes Form re-faxed per [facility] request Form signed. Jessica Guerrero APRN.FRIEDA Clinical notes and DWO for infusion supplies placed on providers desk to review and advise. To be faxed to [facility] Medical [phone] Patient has been identified by name and date of : Yes Type of form: [facility] Medical Physician Order for Insulin Pump Therapy and Diabetes Testing Form received via: abstract When form is completed, fax form to fax number provided. Form has been forwarded to: Provider's mailbox. Provider name: FRIEDA Urena documented in this encounter [facility] 10-02-2024 Telephone encounter Note Form signed. Jessica Guerrero APRN.CNP [facility] 10-02-2024 Telephone encounter Note Clinical notes and DWO for infusion supplies placed on providers desk to review and advise. To be faxed to [facility] Medical [phone] [facility] 10-02-2024 Telephone encounter Note Patient has been identified by name and date of : Yes Type of form: [facility] Medical Physician Order for Insulin Pump Therapy and Diabetes Testing Form received via: abstract When form is completed, fax form to fax number provided. Form has been forwarded to: Provider's mailbox. Provider name: FRIEDA Urena [facility] 09-02-2024 Note HNO ID: [id number] Author: LETICIA HYLTON, DO Service: ? Author Type: Physician Type: Progress Notes Filed: 09/02/2024 09:32 Note Text: FOLLOW UP VIRTUAL VISIT I have communicated my name and active licensure. The patient's identity and physical location were verified at the time of this visit. Either the patient or their legal telecommunications sales representative has been informed of the risks and benefits of -- and alternatives to -- treatment through a remote evaluation and consents to proceed with the evaluation remotely. This visit was conducted as a virtual visit. CHIEF COMPLAINT Patient presents with: Constipation Nausea Ms. Daisy is here today for follow-up of: nausea [...] every 24 hours. 38.7 mL 1 Insulin [place], Disposable, (PEN NEEDLE) 32 gauge x 5/32 [...] no edema RESPIRATORY: No dyspnea : Negative PULVERIZER TENDER: Negative The remainder of the review of [...] the local ER Leticia Hylton DO 09/02/2024 [facility] 09-02-2024 History of Present illness Narrative FOLLOW UP VIRTUAL VISIT I have communicated my name and active licensure. The patient's identity and physical location were verified at the time of this visit. Either the patient or their legal telecommunications sales representative has been informed of the [...] every 24 hours. 38.7 mL 1 Insulin [place], Disposable, (PEN NEEDLE) 32 gauge x 5/32 [...] no edema RESPIRATORY: No dyspnea : Negative PULVERIZER TENDER: Negative The remainder of the review of [...] Hylton DO 09/02/2024 documented in this encounter [facility] 08-07-2024 Telephone encounter Note Medication: Skyrizi 150mg/ml Dosing Schedule: 150mg every 12 weeks Prior Authorization: Submitted date: 08.07.2024 PA reference #: [id number] Approval dates: 08.07.2024-08.27.2024 [facility] [phone] [facility] 08-07-2024 Miscellaneous Notes Medication: Skyrizi 150mg/ml Dosing Schedule: 150mg every 12 weeks Prior Authorization: Submitted date: 08.07.2024 PA reference #: [id number] Approval dates: 08.07.2024-08.27.2024 [facility] [phone] documented in this encounter [facility] 08-03-2024 Note [facility] 07-24-2024 Telephone encounter Note [facility] form for CGM /Pump completed and signed per Provider for Medtronic 780G pump and Guardian 4. Completed form and JOSE X2 documentation faxed as requested to [facility]. Lisa Aguilar LPN [facility] 07-24-2024 Miscellaneous Notes [facility] form for CGM /Pump completed and signed per Provider for Medtronic 780G pump and Guardian 4. Completed form and JOSE X2 documentation faxed as requested to [facility]. Lisa Aguilar LPN Images from the original note were not included. Jessica Guerrero APRN.FRIEDA Ashby She was able to get upgraded pump recently. I am sending her to E and medtronic to start. She will need new supplies from [facility] including Guardian 4 CGM and supplies for Medtronic 780 G. Jessica Guerrero APRN.TELEGRAPH SERVICE RATER documented in this encounter [facility] 07-23-2024 Note HNO ID: [id number] Author: VAMSI CARSON RN Service: ? Author Type: Registered Nurse Type: Progress Notes Filed: 07/23/2024 09:04 Note Text: DIABETES CARE AND EDUCATION VISIT Location: [place] Type of visit: In person individual PATIENT'S [...] DATE: July 23, 2024 TIME: 8:47 AM [facility] 07-23-2024 History of Present illness Narrative DIABETES CARE AND EDUCATION VISIT Location: [place] Type of visit: In person individual PATIENT'S [...] TIME: 8:47 AM documented in this encounter [facility] 07-19-2024 Telephone encounter Note Images from the original note were not included. Jessica Guerrero APRN.FRIEDA Ashby She was able to get upgraded pump recently. I am sending her to [employer] and [employer] to start. She will need new supplies from [facility] including Guardian 4 CGM and supplies for Medtronic 780 G. Jessica Guerrero APRN.FRIEDA [facility] 07-19-2024 History of Present illness Narrative [facility] DIABETES VISIT VIRTUAL VISIT I have communicated my name and active licensure. The patient's identity and physical location were verified at the time of this visit. Either the patient or their legal telecommunications sales representative has been informed of the [...] 43 Units subcutaneously every 24 hours. Insulin [place], Disposable, (PEN NEEDLE) 32 gauge x 5/32 [...] endo office visit: 02/[address] Joshua Wang Brynn Villa is [...] Memory Loss: No Seizures: No PHYSICAL EXAMINATION: [facility] 11/26/2022 General: Well appearing, alert, in [...] pump - Message sent to Umair at [employer] to help with upgrade to 780G and start Guardian 4 CGM - Will reach out to [facility] medical so she can get supplies - Update [...] I will reach out to Umair at [employer] about new pump and CGM 5) Update [...] months. Jessica Guerrero APRN.CNP Endocrinology & Metabolism [place] Some elements in this note were copied from my last note and have been updated as appropriate and reflect medical decision making today. documented in this encounter [facility] 07-19-2024 Note HNO ID: [id number] Author: JESSICA GUERRERO APRN.CNP Service: ? Author Type: Nurse Practitioner Type: Progress Notes Filed: 07/19/2024 15:15 Note Text: [facility] DIABETES VISIT VIRTUAL VISIT I have communicated my name and active licensure. The patient's identity and physical location were verified at the time of this visit. Either the patient or their legal telecommunications sales representative has been informed of the [...] 43 Units subcutaneously every 24 hours. Insulin [place], Disposable, (PEN NEEDLE) 32 gauge x 5/32 [...] ECG TRANSMIS W (more content not included)... [facility] 07-10-2024 Note HNO ID: [id number] Author: JASON PAREDES MD Service: ? Author [...] L2 SAB0 IAB0 Ectopic0 Multiple0 Live Births2 Entry Level Administrative Assistant History LMP: 11/26/2022 (Exact Date), Having periods Age at Menarche: 12 Age at First : Age at Menopause: Entry Level Administrative Assistant History Comments: Sexual Activity: Yes; Male [...] discussed with the Patient or Patient's Authorized Glue Drier Operator. As applicable, any other physician, advance practice provider, medical student, or other health professional student that will be observing or involved in the sensitive examination for educational or training purposes was discussed with the Patient or Authorized Glue Drier Operator. The Patient or Authorized Glue Drier Operator has agreed to proceed with the sensitive [...] external genitalia normal, normal Bartholin's glands, urethra, Milton-Freewater's glands, no vulvar lesions, no cervical lesions, [...] or sooner as needed Jason Paredes MD [facility] 07-10-2024 History of Present illness Narrative [...] L2 SAB0 IAB0 Ectopic0 Multiple0 Live Births2 Entry Level Administrative Assistant History LMP: 11/26/2022 (Exact Date), Having periods Age at Menarche: 12 Age at First : Age at Menopause: Entry Level Administrative Assistant History Comments: Sexual Activity: Yes; Male [...] discussed with the Patient or Patient's Authorized Glue Drier Operator. As applicable, any other physician, advance practice provider, medical student, or other health professional student that will be observing or involved in the sensitive examination for educational or training purposes was discussed with the Patient or Authorized Glue Drier Operator. The Patient or Authorized Glue Drier Operator has agreed to proceed with the sensitive [...] external genitalia normal, normal Bartholin's glands, urethra, Milton-Freewater's glands, no vulvar lesions, no cervical lesions, [...] Jason Paredes MD documented in this encounter [facility] 06-25-2024 Telephone encounter Note Message has been relayed to patient via phone. Patient verbalizes understanding. Swifto message sent for patients reference as requested. [facility] 06-25-2024 Miscellaneous Notes Message has been relayed to patient via phone. Patient verbalizes understanding. SiteBrainshart message sent for patients reference as requested. I recommend she sees elementary educator to review pump options- I am [...] any further questions or concerns, Jessica Guerrero APRN.FRIEDA JOSE- 03/12/24 NOV- 07/19/24 Spoke to patient [...] Insulin Lispro. Would like pen-injector sent to [facility] Discussed with provider in office Please advise Patient needs a new pump other than medtonic pump. She also needs pen novolog while she awaits a new pump documented in this encounter [facility] 06-25-2024 Telephone encounter Note I recommend she sees elementary educator to review pump options- I am [...] any further questions or concerns, Jessica Guerrero APRN.FRIEDA [facility] 06-25-2024 Telephone encounter Note JOSE- 03/12/24 NOV- [...] Insulin Lispro. Would like pen-injector sent to [facility] Discussed with provider in office Please advise [facility] 06-24-2024 Telephone encounter Note Patient needs a new pump other than medtonic pump. She also needs pen novolog while she awaits a new pump [facility] Work Phone: 06-17-2024 Telephone encounter Note Noted. Copy scanned into chart [facility] 06-17-2024 Miscellaneous Notes Noted. Copy scanned into chart Patient has been identified by name and date of : Yes Type of form: [employer] Medication Reconciliation Post Discharge V2 Form received via: Fax When form is completed, fax form to fax number provided. Form has been forwarded to: Provider's mailbox. Provider name: Dr. Joshua Quinteros documented in this encounter [facility] 06-17-2024 Telephone encounter Note Patient has been identified by name and date of : Yes Type of form: [employer] Medication Reconciliation Post Discharge V2 Form received via: Fax When form is completed, fax form to fax number provided. Form has been forwarded to: Provider's mailbox. Provider name: Dr. Joshua Quinteros [facility] 06-11-2024 Note [facility] 05-24-2024 Telephone encounter Note Spoke to pt. JOSE 03/12/24 ( we can sent notes over, if needed) 07/19/24 We have not received any new order forms from [facility] or [employer]. Advised pt to reach out. [facility] 05-24-2024 Miscellaneous Notes Spoke to pt. JOSE [...] updated if any issues. Jessica Guerrero APRN.CNP JOSE 03/12/24 Lewis NOV 05/28/24 Josue Pt uses [facility] Medical for supplies Has had loaner pump x3 months through [employer] and now has to return it or pay $3000 out of pocket. Advised pt she has to call [facility] and have them send us an order [...] pay the $3000,was told to call her physical therapy attendant for assistance. documented in this encounter [facility] 05-24-2024 Telephone encounter Note Patient has to reschedule her may appt and will be completely out of her pump supplies before her next June appt. Please advise she needs her pump suppllies [facility] Work Phone: 05-17-2024 Telephone encounter Note Lantus refill sent in. Please keep me updated if any issues. Jessica Guerrero APRN.CNP [facility] 05-17-2024 Telephone encounter Note JOSE 03/12/24 Joshua CAMPA 05/28/24 Josue Pt uses [facility] Medical for supplies Has had loaner pump x3 months through [employer] and now has to return it or pay $3000 out of pocket. Advised pt she has to call [facility] and have them send us an order form for a new pump (have to see if insurance will pay for a new pump- Old pump was 5 years old) Told pt she has to let us know if she is without a pump and needs insulin ordered. Verbalized understanding. [facility] 05-16-2024 Telephone encounter Note Pt got a [...] pay the $3000,was told to call her physical therapy attendant for assistance. [facility] 05-06-2024 Telephone encounter Note Medication: Skyrizi 150mg/ml Dosing Schedule: 150mg every 12 weeks Prior Authorization: Submitted date: 05.06.2024 [place] reference #: [id number] Approval dates: 05.06.2024-08.27.2024 Caitie Light Liaison [facility] [phone] [facility] 05-06-2024 Miscellaneous Notes Medication: Skyrizi 150mg/ml Dosing Schedule: 150mg every 12 weeks Prior Authorization: Submitted date: 05.06.2024 [place] reference #: [id number] Approval dates: 05.06.2024-08.27.2024 Caitie Light Liadick [facility] [phone] documented in this encounter [facility] 04-08-2024 Telephone encounter Note Prescription Refill [...] Yazmin Zaldivar April 08, 2024 1:18 PM [facility] 04-08-2024 Miscellaneous Notes Prescription Refill Information The [...] 2024 1:18 PM documented in this encounter [facility] 03-12-2024 History of Present illness Narrative Images from the original note were not included. Last Visit: 12/13/2023 Ms. Villa is here for follow up regarding her DM Type 1. Is patient interested in MyChart? Patient uses it SMBG: Hyperglycemia: Yes, but rare Type of Monitor: [employer] 630G/ Guardian Frequency of Monitorin-8 times a [...] which included preparing to see the patient, hygf-ob-bqzx patient care, completing clinical documentation, communicating results to the patient/family/caregiver, and care coordination (not separately reported). documented in this encounter [facility] 03-12-2024 Note HNO ID: [id number] Author: LISA AGUILAR LPN Service: ? Author Type: Physician Type: Progress Notes Filed: 03/12/2024 15:01 Note Text: Last Visit: 12/13/2023 Ms. Villa is here for follow up regarding her DM Type 1. Is patient interested in MyChart? Patient uses it SMBG: Hyperglycemia: Yes, but rare Type of Monitor: [employer] 630G/ Guardian Frequency of Monitorin-8 times a [...] 12/23/2020 LDL Cholesterol due on 02/04/2022 Covid-19 Vaccine() Never done Diabetic Foot Exam due on [...] mg/dL Insulin du (more content not included)... [facility] 03-05-2024 Telephone encounter Note Faxed and filed. [facility] 03-05-2024 Miscellaneous Notes Faxed and filed. Signed On your desk. Please sign Patient has been identified by name and date of : Yes Type of form: Medical Necessity [employer] Form received via: Fax When form is completed, fax form to fax number provided. Form has been forwarded to: SILVINO Liriano documented in this encounter [facility] 03-05-2024 Telephone encounter Note Signed [facility] Work Phone: 03-04-2024 Telephone encounter Note On your desk. Please sign [facility] 03-02-2024 Telephone encounter Note Patient has been identified by name and date of : Yes Type of form: Medical Necessity [employer] Form received via: Fax When form is completed, fax form to fax number provided. Form has been forwarded to: SILVINO Liriano [facility] 02-14-2024 Telephone encounter Note Spoke with patient via phone and reviewed orders per [facility] notes. The patient is currently taking [...] understanding. No further questions at this time. [facility] 02-14-2024 Miscellaneous Notes Spoke with patient via phone and reviewed orders per [facility] notes. The patient is currently taking [...] pump on. Patient can be reached at [phone] documented in this encounter [facility] 02-14-2024 Telephone encounter Note Patient stated that her 630G pump malfunctioned and she had to get a new one. Patient needs to now what settings to put the pump on. Patient can be reached at [phone] [facility] 02-13-2024 Telephone encounter Note Images from the original note were not included. Returned patient's call. Pt states her pump got water on it and stopped working. Pt requests back up medication. Lantus and Humalog sent to the pharmacy of patient's preference. Jenn Solo MD Clinical Fellow PGY-4 Endocrinology and Metabolism [place] [facility] 02-13-2024 Miscellaneous Notes Images from the original note were not included. Returned patient's call. Pt states her pump got water on it and stopped working. Pt requests back up medication. Lantus and Humalog sent to the pharmacy of patient's preference. Jenn Solo MD Clinical Fellow PGY-4 Endocrinology and Metabolism [place] documented in this encounter [facility] 01-25-2024 Telephone encounter Note Returned pt's call. Pt scheduled for 02/01/24 for ILK. [facility] 01-25-2024 Miscellaneous Notes Returned pt's call. [...] not helping either. documented in this encounter [facility] 01-24-2024 Telephone encounter Note Patient left a voicemail on the nurses line returning ileana's call. [facility] 01-24-2024 Miscellaneous Notes Patient left a [...] not helping either. documented in this encounter [facility] 01-24-2024 Telephone encounter Note Attempted to contact patient to offer/schedule for ILK injection to the stubborn spot on her scalp. Advised to return call if she would like to schedule. [facility] 01-23-2024 Telephone encounter Note Spoke to patient today to set up delivery of Skyrizi. She states that she has a stubborn spot on her scalp that is not going away. Everything else is going well but the topicals are not helping either. [facility] 12-15-2023 Note HNO ID: [id number] Author: KYARA LUIS RN Service: ? Author [...] discharged from care coordination. Kyara Luis RN [facility] 12-15-2023 History of Present illness Narrative [...] Kyara Luis RN documented in this encounter [facility] 12-15-2023 Note Patient Outreach (MR GONZALEZ) KATHLEEN VILLA ([id number]) 1995 F CHT Date Time Provider Department [...] Date Reviewed: 12/13/2023 Reviewed by: Jessica Guerrero APRN.TELEGRAPH SERVICE RATER - Fully Assessed Reason for Visit: Endbander Chronic Care [3612] Prescriptions as of 12/15/2023 - promethazine (PHENERGAN) [...] (post-traumatic stress disorder) [F43.10] 12/25/2012 DVT prophylaxis [[id number]] 12/25/2012 09/04/2013 DISPOSITION AND FOLLOW-UP [V999.01] 12/25/2012 09/04/2013 HTN (hypertension) [I10] Hypertension in , antepartum [O16.9] 09/19/2013 01/08/2014 GBS (group B Streptococcus carrier), +RV cultur*11/11/2013 04/16/2014 [Z34.90] 11/22/2013 04/16/2014 Diabetes mellitus in (HCC) [O24.919] 12/25/2013 04/16/2014 Diabetic ketoacidosis without coma associated w*01/08/2014 02/04/2023 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 [facility] 12-13-2023 Instructions Jessica Guerrero APRN.FRIEDA - 12/13/2023 3:51 PM EDT Plan: 1) [...] in 3 months documented in this encounter [facility] 12-13-2023 History of Present illness Narrative Images [...] Other maternal great grandma I reviewed the Security Controls Assessor's notes with this visit for vital signs, [...] grandmother DM2 She is living at a assisted currently, will be moving at the end [...] patient is currently taking Humalog insulin via [employer] 630G insulin pump in manual mode at [...] readings - I will reach out to [employer] regarding why CGM order is delayed as [...] months. Jessica Guerrero APRN.CNP Endocrinology & Metabolism [place] Some elements in this note were copied from my last note and have been updated as appropriate and reflect medical decision making today. documented in this encounter [facility] 12-13-2023 Note HNO ID: [id number] Author: JESSICA GUERRERO APRN.CNP Service: ? Author [...] Other maternal great grandma I reviewed the Security Controls Assessor's notes with this visit for vital signs, [...] living at a (more content not included)... [facility] 11-22-2023 Note HNO ID: [id number] Author: KYARA LUIS RN Service: ? Author [...] TCM completed will follow for care coordination. Institute Scientist plan for next outreach: Will follow up Kyara Luis RN November 22, 2023 2:29 PM [facility] 11-22-2023 Note Patient Outreach (METHODIST JENNIE EDMUNDSON) KATHLEEN VILLA ([id number]) 1995 F CHT Date Time Provider Department 11/22/23 KYARA LUIS [facility] During your visit [...] TCM completed will follow for care coordination. 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 [facility] 11-14-2023 History of Present illness Narrative DATE OF SERVICE: 11/14/2023 PATIENT NAME: Kathleen Villa : 1995 AGE: 28 y.o. CLINIC NUMBER: [id number] Visit type: Established patient Chief Complaint Patient [...] reapply. 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 Patient advised to perform self-skin checks and call for follow up appointment if any new or concerning lesions detected. Follow up in about 1 year (around 11/13/2024) for Psoriasis f/u. Leesa Huddleston PA-C 11/14/23 5:13 PM REFERRING MD: documented in this encounter [facility] 11-10-2023 Note HNO ID: [id number] Author: KYARA LUIS RN Service: ? Author [...] yet to schedule but plans to call. Institute Scientist plan for next outreach: Will follow up Priscilla Luis RN November 10, 2023 [facility] 11-10-2023 Note Patient Outreach (MR CAC) KATHLEEN VILLA ([id number]) 1995 F CHT Date Time Provider Department 11/10/23 KYARA LUIS [facility] During your visit today, we recorded the following information about you: Kyara Luis RN 11/10/2023 1:21 PM Signed TRANSITION CARE MANAGEMENT (TCM) FOLLOW-UP NOTE Provider Action/FYI Summary: TCM follow up placed, [facility] blood sugars have remained stable. Had intake on Monday for IOP and has first appointment in November. States has all medications, taking as directed. Did received email with physicians in her area, has yet to schedule but plans to call. Institute Scientist plan for next outreach: Will follow up [...] (post-traumatic stress disorder) [F43.10] 12/25/2012 DVT prophylaxis [FDL1821] 12/25/2012 09/04/2013 DISPOSITION AND FOLLOW-UP [V999.01] 12/25/2012 09/04/2013 HTN (hypertension) [I10] Hypertension in , antepartum [O16.9] 09/19/2013 01/08/2014 GBS (group B Streptococcus carrier), +RV cultur*11/11/2013 04/16/2014 [Z34.90] 11/22/2013 04/16/2014 Diabetes mellitus in (HCC) [O24.919] 12/25/2013 04/16/2014 Diabetic ketoacidosis without coma associated w*01/08/2014 02/04/2023 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] 01/08/2014 DVT prophylaxis [VTI1320] 02/25/2014 04/16/2014 care and examination [Z39.2] 02/25/2014 [...] Encounter Status:Closed by KYARA LUIS on 11/10/23 [facility] 11-10-2023 History of Present illness Narrative [...] yet to schedule but plans to call. Institute Scientist plan for next outreach: Will follow up Signature Kyara Luis RN November 10, 2023 documented in this encounter [facility] 11-03-2023 Note HNO ID: [id number] Author: KYARA LUIS RN Service: ? Author Type: Registered Nurse Type: Progress Notes Filed: 11/03/2023 12:45 Note Text: Summary: TCM follow up TRANSITION CARE MANAGEMENT (TCM) FOLLOW-UP NOTE Provider Action/FYI Patient identified by name and date of : YES Summary: TCM follow up call placed, patient requesting call back at later date, currently resting Institute Scientist plan for next outreach: Will follow up Priscilla Luis RN November 03, 2023 [facility] 11-03-2023 Note Patient Outreach (MR CAC) KATHLEEN VILLA ([id number]) 1995 F CHT Date Time Provider Department 11/03/23 KYARA LUIS [facility] During your visit today, we recorded the following information about you: Kyara Luis RN 11/03/2023 12:45 PM Signed TRANSITION CARE MANAGEMENT (TCM) FOLLOW-UP NOTE Provider Action/FYI Patient identified by name and date of : YES Summary: TCM follow up call placed, patient requesting call back at later date, currently resting Institute Scientist plan for next outreach: Will follow up Priscilla Luis RN November 03, 2023 Allergies As [...] (post-traumatic stress disorder) [F43.10] 12/25/2012 DVT prophylaxis [[id number]] 12/25/2012 09/04/2013 DISPOSITION AND FOLLOW-UP [V999.01] 12/25/2012 09/04/2013 HTN (hypertension) [I10] Hypertension in , antepartum [O16.9] 09/19/2013 01/08/2014 GBS (group B Streptococcus carrier), +RV cultur*11/11/2013 04/16/2014 [Z34.90] 11/22/2013 04/16/2014 Diabetes mellitus in (HCC) [O24.919] 12/25/2013 04/16/2014 Diabetic ketoacidosis without coma associated w*01/08/2014 02/04/2023 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] 01/08/2014 DVT prophylaxis [[id number]] 02/25/2014 04/16/2014 care and examination [Z39.2] 02/25/2014 [...] Encounter Status:Closed by KYARA LUIS on 11/03/23 [facility] 11-03-2023 History of Present illness Narrative Summary: TCM follow up TRANSITION CARE MANAGEMENT (TCM) FOLLOW-UP NOTE Provider Action/FYI Patient identified by name and date of : YES Summary: TCM follow up call placed, patient requesting call back at later date, currently resting Institute Scientist plan for next outreach: Will follow up Signature Kyara Luis RN November 03, 2023 documented in this encounter [facility] 10-27-2023 Note HNO ID: [id number] Author: KYARA LUIS RN Service: ? Author Type: Registered Nurse Type: Progress Notes Filed: 10/27/2023 14:48 Note Text: Summary: TCM follow up TRANSITION CARE MANAGEMENT (TCM) FOLLOW-UP NOTE Provider Action/FYI Patient identified by name and date of : YES Discharge Network Status: Foo-ry-Ufljnnu (OON) Discharge Summary: TCM follow up call [...] may have to change to PCP in [place], has difficulty obtaining ride to [place]. Patient asked if name and number of locals physicians can be sent to her, sent via email. States has all medications, taking as directed. Institute Scientist plan for next outreach: Will follow up Signature Kyara Luis RN October 27, 2023 [facility] 10-27-2023 History of Present illness Narrative Summary: TCM follow up TRANSITION CARE MANAGEMENT (TCM) FOLLOW-UP NOTE Provider Action/FYI Patient identified by name and date of : YES Discharge Network Status: Uix-nq-Xnrwzaz (OON) Discharge Summary: TCM follow up call placed to patient, was at ED on 10/25 due to anxiety, started on ativan which is helping. Per patient has thoughts of self harm/cutting, this has subsided, no suicidal ideation. Has been in contact with local [facility] for intensive outpatient program and has evaluation on 11/05. Has been in contact with her counselor. Has number to crisis and encouraged to return to ED if new/worsening symptoms. Monitoring blood sugars, states have been stable. Per patient may have to change to PCP in [place], has difficulty obtaining ride to [place]. Patient asked if name and number of locals physicians can be sent to her, sent via email. States has all medications, taking as directed. Institute Scientist plan for next outreach: Will follow up Signature Kyara Luis RN October 27, 2023 documented in this encounter [facility] 10-27-2023 Note Patient Outreach (MR GONZALEZ) KATHLEEN VILLA ([id number]) 1995 F CHT Date Time Provider Department 10/27/23 KYARA LUIS [facility] During your visit today, we recorded the following information about you: Kyara Luis RN 10/27/2023 2:48 PM Signed TRANSITION CARE MANAGEMENT (TCM) FOLLOW-UP NOTE Provider Action/FYI Patient identified by name and date of : YES Discharge Network Status: Vaw-tp-Ordcgpw (OON) Discharge Summary: TCM follow up call [...] may have to change to PCP in [place], has difficulty obtaining ride to [place]. Patient asked if name and number of locals physicians can be sent to her, sent via email. has all medications, taking as directed. Institute Scientist plan for next outreach: Will follow up [...] (post-traumatic stress disorder) [F43.10] 12/25/2012 DVT prophylaxis [[id number]] 12/25/2012 09/04/2013 DISPOSITION AND FOLLOW-UP [V999.01] 12/25/2012 09/04/2013 HTN (hypertension) [I10] Hypertension in , antepartum [O16.9] 09/19/2013 01/08/2014 GBS (group B Streptococcus carrier), +RV cultur*11/11/2013 04/16/2014 [Z34.90] 11/22/2013 04/16/2014 Diabetes mellitus in (HCC) [O24.919] 12/25/2013 04/16/2014 Diabetic ketoacidosis without coma associated w*01/08/2014 02/04/2023 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] 01/08/2014 DVT prophylaxis [[id number]] 02/25/2014 04/16/2014 care and examination [Z39.2] 02/25/2014 [...] disease*04/18/2022 Chronic na (more content not included)... [facility] 10-20-2023 Note O ID: [id number] Author: KYARA LUIS RN Service: ? Author [...] having a difficult time at a homeless assisted. Patient does attend weekly counseling at [email or web address], encouraged her to reach out to her counselor to discuss increased stress/anxiety levels and she plans on calling today. Per patient, no medication changes, blood sugar today is 156, state n/v resolving, Has all medications, taking as directed. . Patient identified by name and .Yes TCM Eligibility Documentation Program: Transitional Care Management Status: Identified Start Date: 10/18/2023 Responsible Staff: Kyara Luis senior sales administrator date: 10/18/2023 (Program start) Date of initial contact: 10/20/2023 Initial contact Target status: Successful; Contact made within 2 business days post-discharge SUMMARY: -Pt discharged from [facility] on 10/18/23. -Follow up appointment [...] per patient, her last A1C with her physical therapy attendant was 6.7. She had however had recurrent [...] to follow up with her PCP and physical therapy attendant as well as customer support manager o/a of gastroparesis. Patient seen and examined prior to discharge. She had no active complaints and had an uneventful night. Review of systems is otherwise negative. Labs and vitals reviewed. Home meds reviewed and reconciled. Kyara Luis RN [facility] 10-20-2023 History of Present illness Narrative [...] having a difficult time at a homeless assisted. Patient does attend weekly counseling at [facility], encouraged her to reach out to her [...] business days post-discharge SUMMARY: -Pt discharged from [facility] on 10/18/23. -Follow up appointment [...] per patient, her last A1C with her physical therapy attendant was 6.7. She had however had recurrent [...] to follow up with her PCP and physical therapy attendant as well as customer support manager o/a of gastroparesis. Patient seen and examined prior to discharge. She had no active complaints and had an uneventful night. Review of systems is otherwise negative. Labs and vitals reviewed. Home meds reviewed and reconciled. Kyara Luis RN documented in this encounter [facility] 10-20-2023 Note Patient Outreach (MR GONZALEZ) KATHLEEN VILLA ([id number]) 1995 F CHT Date Time Provider Department 10/20/23 KYARA LUIS [...] having a difficult time at a homeless assisted. Patient does attend weekly counseling at [email or web address], encouraged her to reach out to her counselor to discuss increased stress/anxiety levels and she plans on calling today. Per patient, no medication changes, blood sugar today is 156, state n/v resolving, Has all medications, taking as directed. . Patient identified by name and .Yes TCM Eligibility Documentation Program: Transitional Care Management Status: Identified Start Date: 10/18/2023 Responsible Staff: Kyara Luis senior sales administrator date: 10/18/2023 (Program start) Date of initial contact: 10/20/2023 Initial contact Target status: Successful; Contact made within 2 business days post-discharge SUMMARY: -Pt discharged from [facility] on 10/18/23. -Follow up appointment [...] per patient, her last A1C with her physical therapy attendant was 6.7. She had however had recurrent [...] to follow up with her PCP and physical therapy attendant as well as customer support manager o/a of gastroparesis. Patient seen and examined prior to discharge. She had no active complaints and had an uneventful night. Review of systems is otherwise negative. Labs and vitals reviewed. Home meds reviewed and reconciled. Kyraa Luis RN Allergies As of Date: 10/20/2023 [...] - Rash Date Reviewed: 09/12/2023 Reviewed by: Graves, Lisa, ARTIST AND REPERTOIRE MANAGER - Fully Assessed Reason for Visit: Transition [...] of 01/09/2020: All (more content not included)... [facility] 10-19-2023 Note HNO ID: [id number] Author: KYARA LUIS RN Service: ? Author Type: Registered Nurse Type: Progress Notes Filed: 10/19/2023 12:05 Note Text: Summary: TCM call TRANSITION CARE MANAGEMENT (TCM) FOLLOW-UP NOTE Provider Action/FYI Summary: TCM call placed to patient, no answer, message left to return my call at [phone] ext [phone] Institute Scientist plan for next outreach: Will follow up Signature Kyara Luis RN October 19, 2023 [facility] 10-19-2023 Note Patient Outreach (MR GONZALEZ) KATHLEEN VILLA ([id number]) 1995 F CHT Date Time Provider Department 10/19/23 KYARA LUIS [facility] During your visit today, we recorded the following information about you: Kyara Luis RN 10/19/2023 12:05 PM Signed TRANSITION CARE MANAGEMENT (TCM) FOLLOW-UP NOTE Provider Action/FYI Summary: TCM call placed to patient, no answer, message left to return my call at [phone] ext [phone] Institute Scientist plan for next outreach: Will follow up [...] (post-traumatic stress disorder) [F43.10] 12/25/2012 DVT prophylaxis [[id number]] 12/25/2012 09/04/2013 DISPOSITION AND FOLLOW-UP [V999.01] 12/25/2012 09/04/2013 HTN (hypertension) [I10] Hypertension in , antepartum [O16.9] 09/19/2013 01/08/2014 GBS (group B Streptococcus carrier), +RV cultur*11/11/2013 04/16/2014 [Z34.90] 11/22/2013 04/16/2014 Diabetes mellitus in (HCC) [O24.919] 12/25/2013 04/16/2014 Diabetic ketoacidosis without coma associated w*01/08/2014 02/04/2023 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] 01/08/2014 DVT prophylaxis [[id number]] 02/25/2014 04/16/2014 care and examination [Z39.2] 02/25/2014 [...] Encounter Status:Closed by KYARA LUIS on 10/19/23 [facility] 10-19-2023 History of Present illness Narrative Summary: TCM call TRANSITION CARE MANAGEMENT (TCM) FOLLOW-UP NOTE Provider Action/FYI Summary: TCM call placed to patient, no answer, message left to return my call at [phone] ext [phone] Institute Scientist plan for next outreach: Will follow up Signature Kyara Luis RN October 19, 2023 documented in this encounter [facility] 10-17-2023 History and physi cristina note Note Date/Time October 17, 2023 11:24am [facility] Medical Records Department [address] [place] [address] History & Physical Exam 10/17/23 1120 MR#: [id number] Acct: [id number] Name: KATHLEEN VILLA Rep #:[id number] : [...] DKA and an known type I diabetic. [facility] Medical History Anxiety Borderline personality [...] gauge x 1/2 (Ultra-Thin II Insulin [place]) #100 ea08/10/23 [Rx Last Taken Unknown] prochlorperazine [...] 88.4 H, Lymph % (Auto) 7.8 L, [place] % (Auto) 2.4, Eos % (Auto) 0.1, [...] was 6.7. * follows up with an physical therapy attendant in [facility] in [place]. * last A1C from 08/07/2023 was 7 * #Gastroparesis in the setting of type 1 diabetes mellitus * on compazine. Add on phenergan prn * will benefit from metoclorpromide if nausea persists. * #Hypotension * BP is down in the 90s systolic. * will hydrate with IVF and trend. * DVT prpphylaxis: lovenox. Charges/Coding Visit Charges Inpatient E&M: 12888 Init Hosp L3 10/17/23 1394 <Electronically signed by Vita Jefferson MD> Cosigner Signature (if applicable): CC: Dr. Vita Jefferson MD; FUNMILAYO SMITH~ Signed [facility] Work Phone: 1(804) 582-306302-20-2024 Discharge summary Author Alexandro Garces [facility] October 17, 2023 11:38am Note Date/Time October 17, 2023 11:24am [facility] Medical Records Department [address] [place] [address] Emergency Department Summary 10/17/23 MR#: [id number] Acct: [id number] Name: KATHLEEN VILLA Rep #:[id number] : [...] Alvarez RN - Last Filed: 10/17/23 11:31> [facility] Medical History Anxiety Borderline personality [...] gauge x 1/2 (Ultra-Thin II Insulin [place]) #100 ea08/10/23 [Rx Last Taken Unknown] ibuprofen [...] Medical decision making narrative: Patient placed on school lunch monitor. IV line initiated. Labwork obtained to [...] 88.4 H Lymph % (Auto) 7.8 L [place] % (Auto) 2.4 Eos % (Auto) 0.1 [...] Garces MD - Last Filed: 10/17/23 11:38> [facility] Narrative Medical decision making narrative: Patient placed on school lunch monitor. IV line initiated. Labwork obtained to [...] 88.4 H Lymph % (Auto) 7.8 L [place] % (Auto) 2.4 Eos % (Auto) 0.1 [...] minutes, Including time spent:, Discussing w/Patient &/or Family/Music Pastor, Discussing w/Consultants, Arranging Admission or Transfer, Performing Direct Patient Care at Bedside and - (35 minutes) Discharge Plan Dx/Rx/DC Orders Clinical Impression: DKA (diabetic ketoacidosis), Tachycardia, Nausea & vomiting, Acute dehydration Disposition Disposition: Acute Care [facility] What to do if you have Problems For any increased pain, shortness of breath, bleeding, nausea or vomiting, chest pain, or any unexpected problems, contact your Primary Care Provider. Call [facility] ([phone]) or report to the closest Emergency Room. Call 911 if necessary. 10/17/23 1138 <Electronically signed by Alexandro Garces MD> Cosigner Signature (if applicable): 10/17/23 1131 <Electronically signed by Jacqueline Alvarez RN> CC: FUNMILAYO SMITH ~ Signed [facility] Work Phone: 1(690) 374-514302-15-2024 NoteHNO ID: [id number] Author: KYARA LUIS RN Service: ? Author Type: Registered Nurse Type: Progress Notes Filed: 10/12/2023 14:16 Note Text: Summary: PCC follow up PRIMARY CARE COORDINATION FOLLOW-UP NOTE Provider Action/FYI Patient identified by name and date of . YES Summary: PCC follow up placed to patient, has moved out of assisted, now sharing and apartment. Per patient is [...] 100 mg/dL or on a high statin Institute Scientist plan for next outreach: Will follow up Priscilla Luis RN October 12, 2023[facility]02[facility] NotePatient Outreach (MRCAC) KATHLEEN VILLA ([id number]) 1995 F T Date Time Provider Department 10/12/23 KYARA LUIS MRCAC During your visit today, we recorded the following information about you: Kyara Luis RN 10/12/2023 2:16 PM Signed PRIMARY CARE COORDINATION FOLLOW-UP NOTE Provider Action/GWENDOLYNI Patient identified by name and date of . YES Summary: PCC follow up placed to patient, has moved out of assisted, now sharing and apartment. Per patient is [...] 100 mg/dL or on a high statin Institute Scientist plan for next outreach: Will follow up [...] LPN - Fully Assessed Reason for Visit: Endbander Chronic Care [9306] Prescriptions as of 10/12/2023 - promethazine (PHENERGAN) [...] (post-traumatic stress disorder) [F43.10] 12/25/2012 DVT prophylaxis [[id number]] 12/25/2012 09/04/2013 DISPOSITION AND FOLLOW-UP [V999.01] 12/25/2012 09/04/2013 HTN (hypertension) [I10] Hypertension in , antepartum [O16.9] 09/19/2013 01/08/2014 GBS (group B Streptococcus carrier), +RV cultur*11/11/2013 04/16/2014 [Z34.90] 11/22/2013 04/16/2014 Diabetes mellitus in (HCC) [O24.919] 12/25/2013 04/16/2014 Diabetic ketoacidosis without coma associated w*01/08/2014 02/04/2023 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] 01/08/2014 DVT prophylaxis [DVJ4708] 02/25/2014 04/16/2014 care and examination [Z39.2] 02/25/2014 [...] [K59.04] 11/18/2021 Menstrual i (more content not included)...[facility]02-15-2024 History of Present illness Narrative* Kyara Luis, RN - 10/12/2023 1:55 PM EST Summary: PCC follow up PRIMARY CARE COORDINATION FOLLOW-UP NOTE Provider Action/FYI Patient identified by name and date of . YES Summary: PCC follow up placed to patient, has moved out of assisted, now sharing and apartment. Per patient is [...] 100 mg/dL or on a high statin Institute Scientist plan for next outreach: Will follow up Signature Kyara Luis RN October 12, 2023 [facility] Miscellaneous Notes* Telephone Encounter - Lisa Aguilar LPN - 10/02/2023 10:52 AM EST [employer] forms faxed to office for pump and CGM supplies, [employer] and [employer]. [employer] as back up. Completed forms and JOSE documentation faxed as requested. Lisa Aguilar LPN documented in this encounterC[facility] NotePatient Outreach (MRCAC) KATHLEEN VILLA ([id number]) 1995 F CHT Date Time Provider Department 09/29/23 KYARA LUIS MRCAC During your visit today, we recorded the following information about you: Kyara Luis RN 09/29/2023 11:04 AM Signed PRIMARY CARE COORDINATION FOLLOW-UP NOTE Provider Action/FYI Patient identified by name and date of . YES Summary: Follow up call placed to patient, states continues to have nausea, taking compazine. Per patient has been moved to different assisted in [place] and will not be moving to [place]. States blood sugars are stable. Using insurance for transportation and will need to call them to update her new address. Has all medications, taking as directed. Institute Scientist plan for next outreach: Will follow up [...] LPN - Fully Assessed Reason for Visit: Endbander Chronic Care [3618] Prescriptions as of 09/29/2023 - promethazine (PHENERGAN) [...] (post-traumatic stress disorder) [F43.10] 12/25/2012 DVT prophylaxis [ZSX2280] 12/25/2012 09/04/2013 DISPOSITION AND FOLLOW-UP [V999.01] 12/25/2012 09/04/2013 HTN (hypertension) [I10] Hypertension in , antepartum [O16.9] 09/19/2013 01/08/2014 GBS (group B Streptococcus carrier), +RV cultur*11/11/2013 04/16/2014 [Z34.90] 11/22/2013 04/16/2014 Diabetes mellitus in (HCC) [O24.919] 12/25/2013 04/16/2014 Diabetic ketoacidosis without coma associated w*01/08/2014 02/04/2023 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] 01/08/2014 DVT prophylaxis [JGX5491] 02/25/2014 04/16/2014 care and examination [Z39.2] 02/25/2014 [...] 02/07/2023 Encounter Status:Closed by KYARA LUIS on 09/29/23[facility] 09-29-2023 NoteHNO ID: [id number] Author: KYARA LUIS RN Service: ? Author Type: Registered Nurse Type: Progress Notes Filed: 09/29/2023 11:04 Note Text: Summary: PCC follow up PRIMARY CARE COORDINATION FOLLOW-UP NOTE Provider Action/FYI Patient identified by name and date of . YES Summary: Follow up call placed to patient, states continues to have nausea, taking compazine. Per patient has been moved to different assisted in [place] and will not be moving to [place]. States blood sugars are stable. Using insurance for transportation and will need to call them to update her new address. Has all medications, taking as directed. Institute Scientist plan for next outreach: Will follow up Signature Kyara Luis RN September 29, 2023[facility]02[facility]02[facility] History of Present illness Narrative* Kyara Luis RN - 09/29/2023 10:48 AM ESTSummary: PCC follow up PRIMARY CARE COORDINATION FOLLOW-UP NOTE Provider Action/FYI Patient identified by name and date of . YES Summary: Follow up call placed to patient, states continues to have nausea, taking compazine. Per patient has been moved to different assisted in [place] and will not be moving to [place]. States blood sugars are stable. Using insurance for transportation and will need to call them to update her new address. Has all medications, taking as directed. Institute Scientist plan for next outreach: Will follow up Signature Kyara Luis RN September 29, 2023 documented in this encounterC[facility]24 NoteHNO ID: [id number] Author: KYARA LUIS RN Service: ? Author Type: Registered Nurse Type: Progress Notes Filed: 09/22/2023 10:16 Note Text: Summary: ED follow up [facility] [employer] FOLLOW UP INITIAL CONTACT Provider Action/FYI: Patient at [place] ED 09/20, Hyperglycemia, nausea/vomiting, was prescribed Reglan-states [...] from reglan prescribed in ED, requesting phenergan, has been on in the past and is out of refills. Patient has been living in homeless assisted in [place] making it difficult to keep appointments, also needing follow up with PCP. plan is to be moving to [place] and will be staying at [facility]. Message to office Spoke with patient aware phenergan filled and PCP scheduled for 10/03/23 Patient identified by name and date : YES SUMMARY: -Patient discharged from [place] ED on 09/20/22. -Follow up appointment on [...] Reglan for her nausea and vomiting. Kyara Luis, [facility]01-25-2024 NotePatient Outreach (MRCAC) KATHLEEN VILLA ([id number]) 1995 F CHT Date Time Provider Department 09/21/23 KYARA LUIS [facility] During your visit today, we recorded the following information about you: Kyara Luis, RN 09/22/2023 10:16 AM Addendum [employer] [employer] FOLLOW UP INITIAL CONTACT Provider Action/FYI: Patient at [place] ED 09/20, Hyperglycemia, nausea/vomiting, was prescribed Reglan-states [...] refills. Patient has been living in homeless assisted in [place] making it difficult to keep appointments, also needing follow up with PCP. plan is to be moving to [place] and will be staying at [facility]. Message to office Spoke with patient aware phenergan filled and PCP scheduled for 10/03/23 Patient identified by name and date : YES SUMMARY: -Patient discharged from [place] ED on 09/20/22. -Follow up appointment on [...] LPN - Fully Assessed Reason for Visit: Endbander Ed Follow Up [8939] Order(s):promethazine (PHENERGAN) 25 mg tabletTake 1 tablet [...] K31.84] 12/25/2012 PTSD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 H Lymph % (Auto) 13.6 L [place] % (Auto) 6.2 Eos % (Auto) 0.4 [...] Primary Care Provider: Care Physician,No Primary Referrals: Friend,DO Truman [Med Staff - Active Staff] - 3-5 Days Care Physician,No Primary [Primary Care Provider] - Disposition Disposition: Home, Self Care What to do if you have Problems For any increased pain, shortness of breath, bleeding, nausea or vomiting, chestpain, or any unexpected problems, contact your Primary Care Provider. Call [facility] ([phone]) or report to the closest Emergency Room. Call 911 if necessary. 04/26/232321 <Electronically signed by Loki Soria DO> Cosigner Signature (if applicable): CC: No Primary Care Physician ~ Signed [facility] Work Phone: 1(912) 610-817607-26-2023 Note* Quick Note - Radha Pablo RN - 03/22/2023 4:32 PM EDT Seen by [place] to home. Received community resources. [id number] Miscellaneous Notes* Mohan Note - Radha Pablo RN - 03/22/2023 4:32 PM EDT Seen by [place] to [place]. Received community resources. * Quick Note - [...] per the patient are well within the manager organizational expiration date and have been stored at roomtemperature (<28 days). She recently switched to Humalog and said the pump was refilled with brand new insulin before admission. Continue with insulin regimen as written. Please call pharmacy with any questions. Pharmacist: Felicia Montes Date: 03/21/2023 Contact Information: [phone] or Vocera * Plan of Care - [...] normal T Waves: T waves normal normal IN interval QT Interval: 514 Clinical impression: non-specific [...] further evaluation and treatment. documented in this [id number] Note* Quick Note - Alta Teague RN - 03/22/2023 4:20 PM EDT Patient educated on discharge instructions including need for follow up, new medications, and symptoms to monitor for. Port heparinized and de-accessed. No further questions. [id number] Hospital course Narrative* Benito Jewell MD - 03/22/2023 1:34 PM EDT [facility] DISCHARGE SUMMARY -- [facility] Villa Admitted: 03/20/2023 Discharge Date: [...] on 03/22/23, 1:34 PM documented in this [id number] Note* Plan of Care - Alta Teague [...] of comfort function goal Outcome: Partially Met [id number] History of Present illness Narrative* Benito Jewell MD - 03/22/2023 8:36 AM EDT [facility] PROGRESS NOTE Assessment and Plan Kathleen Villa [...] [place] Admit Date: 03/20/2023 MR #: [id number] : 1995 Current location: [facility] Physicians: Nya, Physician (Family); Dr Ireland (Referring) [...] fluid boluses and antiemetics and admitted to [facility] for further management. While in the ER the patients insulinpump apparently became dislodged and her BG began to increase. Patient has had diabetes for 13 years. Diagnosed at the age of 14. Patient is currently on 670G insulin pump with guardian sensor. Her endocrinology practices in [facility]. She follows with them regularly. Her most [...] patient with you. Electronically signed by Arlene Choudhary APRN-FRIEDA 238:28 AM Arlene Choudhary CNP * Judith Edmondson MD - 03/21/2023 4:30 PM EDT [facility] PROGRESS NOTE Assessment and Plan Kathleen Villa [...] Disposition Estimated Discharge Date: 03/22 Discharge Location: tbd Outpatient Testing: Quality Measures DVT Prophylaxis: SCDs [...] a PCP? (No PCP noted in chart. [place] states that she follows with Dr. Stevens [facility] Care Plan Care Plan No documented in this [id number] Note* Quick Note - Liang Boothe RN [...] with no further needs at this time. [id number] Note* Plan of Care - Liang Boothe [...] of comfort function goal Outcome: Partially Met T [id number] Note* Pharmacy Note - Felicia Montes [facility],PharmD - 03/21/2023 1:30 PM EDT Pharmacotherapy Note: [...] per the patient are well within the manager organizational expiration date and have been stored at roomtemperature (<28 days). She recently switched to Humalog and said the pump was refilled with brand new insulin before admission. Continue with insulin regimen as written. Please call pharmacy with any questions. Pharmacist: Felicia Montes Date: 03/21/2023 Contact Information: [phone] or Vocera [id number] Note* Plan of Care - Liang Boothe [...] of comfort function goal Outcome: Partially Met [id number] Note* Quick Note - Liang Purcell RN - 03/20/2023 6:32 PM EDT Admission skin assessment completed by this nurse and STIVEN Caceres. No skin issues identified at this time. [id number] Note* Plan of Care - Liang Purcell [...] of comfort function goal Outcome: Partially Met [id number] Note* ED Procedure Note - Siddharth Gagnon [...] normal T Waves: T waves normal normal IN interval QT Interval: 514 Clinical impression: non-specific ECG and sinus bradycardia [facility] Work Phone: 1(630) 632-148207-24-2023 Emergency department Note* Zee Chahal RN - 03/20/2023 11:22 AM EDT Bed: 36 Expected date: Expected time: Means of arrival: Comments: ROOM 14 [id number] Emergency department Note* Zee Chahal RN - 03/20/2023 11:22 AM EDT Bed: 36 Expected date: Expected time: Means of arrival: Comments: ROOM 14 * Mariel Gagnon MD - 03/20/2023 6:01 AM EDTAssociated Order(s): EKG 12-lead [facility] ATTENDING NOTE: NAME: Kathleen Villa CSN: [id number] 27 y.o. PCP: No, Physician History: Chief [...] (37 C) Oral 64 18 95 % 03/20/231958 137/69 99.2 F (37.3 C) Axillary 89 [...] All other components within normal limits Narrative: [facility] Laboratory Services has implemented the eGFR [...] All other components within normal limits Narrative: [facility] Laboratory [facility] has implemented the eGFR calculation approach [...] All other components within normal limits Narrative: [facility] Demohour [facility] has implemented the eGFR calculation approach [...] Procedure Abnormality Status --------- ------ CBC Auto Differential[[id number]] Abnormal Final result Please view results for [...] Note made of prior appendectomy surgical clips. [facility]/cdr Workstation ID: [id number] Procedures: EKG 12-lead [...] 12.5 mg (12.5 mg Rectal Given 03/20/23 5643) After reviewing the items above, I did [...] available in inpatient encounters. Please contact a network systems administrator. Mariel Gagnon MD ED Attending Physician [facility] (Please note that portions of this note have been completed with a voice recognition software. Efforts were made to correct any errors, but occasionally words are mis-transcribed.) Mariel Gagnon MD 03/21/23 1439 * oTny Hernandez RN - 03/20/2023 4:26 AM EDT PT STATES THAT SHE CAN NOT PROVIDE URINE SAMPLE AND SHE NEEDS STRAIGHT CATH PERFORMED. * Queta Arias RN - 03/20/2023 2:17 AM EDT Pt c/o vomiting and abdominal pain that started today, also c/o chest pain, states last bgl was 217about an hour ago documented in this [id number] History and physical note* Ernie Ireland MD - 03/20/2023 11:17 AM EDT [facility] HISTORY AND PHYSICAL -- [facility] Patient Name: Kathleen Villa : 1995 MR #: [id number] Admit Date: 03/20/2023 Physicians: No, Physician (Family); [...] fluid boluses and antiemetics and admitted to [facility] for further management. Past Medical History Past [...] normal coloration Psych: normal mood and affect [id number] History and physical note* Ernie Ireland MD - 03/20/2023 11:17 AM EDT [facility] HISTORY AND PHYSICAL -- [facility] Patient Name: Kathleen Villa : 1995 MR #: [id number] Admit Date: 03/20/2023 Physicians: No, Physician (Family); [...] fluid boluses and antiemetics and admitted to [facility] for further management. Past Medical History Past [...] normal mood and affect documented in this [id number] Note* ED Update Note - Mary Mesa [...] be admitted for further evaluation and treatment. [id number] Physician Emergency department Note* Mariel Gagnon MD - 03/20/2023 6:01 AM EDTAssociated Order(s): EKG 12-lead [facility] ATTENDING NOTE: NAME: Kathleen Villa CSN: [id number] 27 y.o. PCP: No, Physician History: Chief [...] All other components within normal limits Narrative: [facility] Laboratory Services has implemented the eGFR [...] All other components within normal limits Narrative: [facility] Laboratory [facility] has implemented the eGFR calculation approach [...] All other components within normal limits Narrative: [facility] Demohour [facility] has implemented the eGFR calculation approach [...] Procedure Abnormality Status --------- ------ CBC Auto Differential[[id number]] Abnormal Final result Please view results for [...] 40 mg (40 mg Subcutaneous Given 03/21/23 09) lactated Ringers infusion (100 mL/hr Intravenous New [...] 12.5 mg (12.5 mg Rectal Given 03/20/23 4548) After reviewing the items above, I did [...] available in inpatient encounters. Please contact a network systems administrator. Mariel Gagnon MD ED Attending Physician [facility] (Please note that portions of this note have been completed with a voice recognition software. Efforts were made to correct any errors, but occasionally words are mis-transcribed.) Mariel Gagnon MD 03/21/23 1439 [facility] Work Phone: 1(374) 611-596407-24-2023 Emergency department Note* Tony Hernandez RN - 03/20/2023 4:26 AM EDT PT STATES THAT SHE CAN NOT PROVIDE URINE SAMPLE AND SHE NEEDS STRAIGHT CATH PERFORMED. [id number] Emergency department Triage note* Queta Arias RN - 03/20/2023 2:17 AM EDT Pt c/o vomiting and abdominal pain that started today, also c/o chest pain, states last bgl was 217about an hour ago [id number] NotePatient Outreach (MRCAC) KATHLEEN VILLA ([id number]) 1995 F T Date Time Provider Department [...] with GI and medication changes made, will orange picker machine operator new medication from her pharmacy. States that vomiting has resolved, tolerating diet, does have nausea and is on compazine and phenergan at home. Monitors blood sugar 5 times per day, FBS this am 131, has insulin pump and adjust according to carbohydrate intake. Currently waiting on continuous glucose monitor that was ordered at her last endocrinology appointment through [facility], patient calling today to follow up (has [...] -Admitted for: Vomiting/diabetic gastroparesis -Pt discharged from [facility] on 02/04. -Follow up appointment: Has had f/u with GI, declines sooner PCP appointment at this time . -Medication review completed. NEW OR CHANGED MEDICATIONS:NA MEDS HELD/DISCONTINUED:NA BRIEF HOSPITAL COURSE: 27-year-old white female who presented 2 days ago on 01/31 secondary to nausea and vomiting at home. Patient has a known history of diabetic gastroparesis. She follows in [facility]. She was admitted to [place]. Unfortunately she has not been tolerating p.o. intake with the exception of some ice chips Patient would be started on insulin drip while in the ICU. Anion gap would close and the patient would be transitioined to a diet. Blood sugars would remain stable once restarting her insulin pump. She will cotninue following with her personal physical therapy attendant outpatient. Follow up with PCP in one [...] 4 gram chewable tablet (more content not included)...[facility]06-14-2023 NoteHNO ID: [id number] Author: Kyara Luis RN Service: ? Author [...] with GI and medication changes made, will orange picker machine operator new medication from her pharmacy. States that vomiting has resolved, tolerating diet, does have nausea and is on compazine and phenergan at home. Monitors blood sugar 5 times per day, FBS this am 131, has insulin pump and adjust according to carbohydrate intake. Currently waiting on continuous glucose monitor that was ordered at her last endocrinology appointment through [facility], patient calling today to follow up (has [...] -Admitted for: Vomiting/diabetic gastroparesis -Pt discharged from [facility] on 02/04. -Follow up appointment: Has had f/u with GI, declines sooner PCP appointment at this time . -Medication review completed. NEW OR CHANGED MEDICATIONS:NA MEDS HELD/DISCONTINUED:NA BRIEF HOSPITAL COURSE: 27-year-old white female who presented 2 days ago on 01/31 secondary to nausea and vomiting at home. Patient has a known history of diabetic gastroparesis. She follows in [facility]. She was admitted to [place]. Unfortunately she has not been tolerating p.o. intake with the exception of some ice chips Patient would be started on insulin drip while in the ICU. Anion gap would close and the patient would be transitioined to a diet. Blood sugars would remain stable once restarting her insulin pump. She will cotninue following with her personal physical therapy attendant outpatient. Follow up with PCP in one week. Vital signs were stable on discharge. Patient understood and agreed with discharge plan You may be receiving a survey about your experience. We really value your feedback. If you would fill out the survey, it would help us tremendously as we continue to improve. Kyara Luis RN February 08, 2023 11:36 [facility]06-14-2023 History of Present illness Narrative* Kyara Luis RN - 02/08/2023 11:34 AM EDTSummary: TCM call Provider Update: Patient Concerns: Needs from Physician/Office: Call Summary: Call placed to Ktahleen Villa for transitional care management follow-up call. Spoke with patient, introduced self, explained role, discharge instructions and medications reviewed with patient. States that she has history of gastroparesis, follow up yesterday with GI and medication changes made, will orange picker machine operator new medication from her pharmacy. States that vomiting has resolved, tolerating diet, does have nausea and is on compazine and phenergan at home. Monitors blood sugar 5 times per day, FBSthis am 131, has insulin pump and adjust according to carbohydrate intake. Currently waiting on continuous glucose monitor that was ordered at her last endocrinology appointment through [facility], patient calling today to follow up (has [...] -Admitted for: Vomiting/diabetic gastroparesis -Pt discharged from [facility] on 02/04. -Follow up appointment: Has had f/u with GI, declines sooner PCP appointment at this time . -Medication review completed. NEW OR CHANGED MEDICATIONS:NA MEDS HELD/DISCONTINUED:NA BRIEF HOSPITAL COURSE: 27-year-old white female who presented 2 days ago on 01/31 secondary to nausea and vomiting at home. Patient has a known history of diabetic gastroparesis. She [facility] in [facility]. She was admitted to [place]. Unfortunately she has not been tolerating p.o. intake with the exception of some ice chips Patient would be started on insulin drip while in the ICU. Anion gap would close and the patient would be transitioined to a diet. Blood sugars would remain stable once restarting her insulin pump. She will cotninue following with her personal physical therapy attendant outpatient. Follow up with PCP in one week. Vital signs were stable on discharge. Patient understood and agreed with discharge plan You may be receiving a survey about your experience. We really value your feedback. If you would fill out the survey, it would help us tremendously as we continue to improve. Kyara Luis RN February 08, 2023 11:36 AM documented in this encounterCleveland Clinic [facility]06-12-2023 NotePatient Outreach (MRCAC) KATHLEEN VILLA ([id number]) 1995 F CHT Date Time Provider Department 02/06/23 KYARA LUIS During your visit today, we recorded the following information about you: Kyara Luis RN 02/06/2023 11:56 AM Signed TRANSITION CARE MANAGEMENT (TCM) FOLLOW-UP NOTE Provider Action/FYI Patient identified by name and date of : YES Summary: Transitional care call placed to patient, message left to return my call at [phone] Institute Scientist plan for next outreach: Will follow up [...] 02/01/2023 Encounter Status:Closed by KYARA LUIS on 02/06/23[facility] 02-06-2023 NoteHNO ID: [id number] Author: Kyara Luis RN Service: ? Author Type: Registered Nurse Type: Progress Notes Filed: 02/06/2023 11:56 AM Note Text: Summary: TCM call TRANSITION CARE MANAGEMENT (TCM) FOLLOW-UP NOTE Provider Action/FYI Patient identified by name and date of : YES Summary: Transitional care call placed to patient, message left to return my call at [phone] ext [phone] Institute Scientist plan for next outreach: Will follow up this week Signature Kyara Luis RN February 06, 2023[facility]06-09-2023 NoteHNO ID: [id number] Author: Clemencia Rivera RN Service: PICC Team Author Type: Registered Nurse Type: Procedures Filed: 02/03/2023 2:30 PM Note Text: MIDLINE INSERTION PROCEDURE NOTE - PICC TEAM NURSES DATE OF PROCEDURE: 02/03/2023 TIME OF PROCEDURE: 1420 ORDERING PHYSICIAN: Juan Carlos Leroy CNP Indications for line placement: Intravenous access Condition of line placement: Sterile Primary Proceduralist: Lewis Fuentes RN Blacktop Paver Operator: Clemencia Rivera RN Pre-procedure Review: ALLERGIES [...] RN Midline Catheter Placement: Brand: BARD Lot: [id number] Number of lumens: 1 Type of Midline: Power Injectable Midline Lumen size: 3 Pashto Placement Technique: Lidocaine: Yes, Lidocaine 1% Volume [...] or problems: Call Vascular Access Nurse on [facility] SIGNATURE: Clemencia Rivera RN PATIENT NAME: Kathleen Villa DATE: February 03, 2023 TIME: 2:24 PM PAGER: Call Vascular Access Nurse on [facility] 02-03-2023 NoteHNO ID: [id number] Author: Mary Ordoñez RN Service: Nursing Author Type: Registered Nurse Type: Nursing Progress Note Filed: 02/03/2023 1:55 PM Note Text: Vascular access team at bedside setting up for ordered midline IV placement at this time.[facility]06-09-2023 NoteHNO ID: [id number] Author: Rubio Diana MD Service: Critical Care Author Type: Physician Type: Progress Notes Filed: 02/03/2023 11:39 AM Note Text: [facility] STAFF PHYSICIAN NOTE OF PERSONAL INVOLVEMENT IN [...] magnesium -A.m. labs Patient/Family Updated: Patient, Kathleen L Daisy, updated regarding the goals of care, medical plan for the day, data power consultant recommendations, medical disposition and current medical [...] Diana MD [facility] DATE of SERVICE: 02/03/2023[facility]06-09-2023 NoteHNO ID: [id number] Author: Yimi Leroy APRN.FRIEDA Service: Critical Care [...] -- 1.7 -- HEPATIC: Recent Labs 02/03/236 02/01/2351301/31/231955 ALKPHOS 82 84 93 ALT 19 19 21 AST -- 15 19 TBILI 1.0 0.7 0.8 LIPASE -- -- 21 URINALYSIS: Recent Lab (more content not included)...[facility]06-08-2023 NoteHNO ID: [id number] Author: Rubio Diana MD Service: Critical Care Author Type: Physician Type: Progress Notes Filed: 02/02/2023 2:32 PM Note Text: [facility] STAFF PHYSICIAN NOTE OF PERSONAL INVOLVEMENT IN [...] of care, medical plan for the day, data power consultant recommendations, medical disposition and current medical [...] Diana MD [facility] DATE of SERVICE: 02/02/2023[facility]06-08-2023 NoteHNO ID: [id number] Author: Alex Mccray MD Service: Hospital Medicine Author Type: Physician Type: Progress Notes Filed: 02/02/2023 9:37 AM Note Text: INPATIENT PROGRESS NOTE SERVICE DATE: 02/02/2023 SERVICE TIME: 9:03 AM SUBJECTIVE: CHIEF COMPLAINT: Nausea, vomiting, abdominal pain INTERVAL HPI: Patient seen and examined. Patient is 27-year-old female with history of diabetes, gastroparesis, follows with customer support manager at [facility] who presented for abdominal [...] bilaterally.] SKIN: [Clear, no evidence of bleeding.] SOFTWARE IMPLEMENTATION PROJECT MANAGER: [Patient awake, alert, oriented ?3. No focal [...] with history of diabetes, gastroparesis, follows with customer support manager at [facility] who presented for abdominal pain, nausea, vomiting for 1 day and on evaluation she was thought to have gastroparesis episode for which s (more content not included)...[facility]06-07-2023 NoteHNO ID: [id number] Author: Alex Mccray MD Service: Hospital Medicine Author Type: Physician Type: Progress Notes Filed: 02/02/2023 8:24 AM Note Text: INPATIENT PROGRESS NOTE SERVICE DATE: 02/01/2023 SERVICE TIME: 11:38 AM SUBJECTIVE: CHIEF COMPLAINT: Nausea, vomiting, abdominal pain INTERVAL HPI: Patient seen and examined. Patient is 27-year-old female with history of diabetes, gastroparesis, follows with customer support manager at [facility] who presented for abdominal [...] bilaterally.] SKIN: [Clear, no evidence of bleeding.] SOFTWARE IMPLEMENTATION PROJECT MANAGER: [Patient awake, alert, oriented ?3. No focal [...] bowel. Consider CT if concern remains high. Giver: [facility] Transcribe Date/Time: Jan 31 2023 7:56P Dictated [...] QTC Calculation (Bazett) 463 ms Calculated P Weston 26 degrees Calculated R Weston 78 degrees Calculated T Weston 72 degrees Narrative NAME : KATHLEEN VILLA PID : [id number] : 1995 Gender : Female Race : ORD : [id number] Procedure Date : Jan 31 2023 19:42:30 Edit Date : Jan 31 2023 23:03:15 Diagnosis: Normal sinus rhythm Nonspecific T wave abnormality Abnormal ECG When compared with ECG of 23-NOV-2022 18:14, Nonspecific T wave abnormality now evident in Lateral leads QT has lengthened Confirmed by ANASTASIA CHENG MD ([id number]) on 01/31/2023 11:03:12 PM Test Reason : STAT Location : 0 : ED 9 Overread By : ANASTASIA CHENG MD Edited By : ANASTASIA CHENG MD Referred By : , Acquired by : [facility], Impression Normal sinus rhythm Nonspecific T wave abnormality Abnormal ECG When compared with ECG of 23-NOV-2022 18:14, Nonspecific T wave abnormality now evident in Lateral leads QT has lengthened Confirmed by PROSPER LOCKE, [facility] ([id number]) on 01/31/2023 11:03:12 PM CBC + DIFF [...] 4.00 k/uL Monocytes % 4.7 % Abs [place] 0.73 <0.87 k/uL Eosinophils % 0.1 % Abs Eosin <0.03 <0.46 k/uL Basophils % 0.5 % Abs Baso 0.07 <0.11 k/uL (more content not included)...[facility]06-07-2023 Miscellaneous Notes * Telephone Encounter - Radha Mandel MA - 02/01/2023 10:36 AM EDT Spoke with patient and she voiced understanding. * Telephone Encounter - Radha Mandel MA - 02/01/2023 10:35 AM EDT ----- Message from Vivi Smith MD sent at 01/27/2023 8:53 AM EDT ----- Please call and notify patient no signs of UTI on urine culture documented in this encounterCleveland Clinic [facility]05-31-2023 NoteHNO ID: [id number] Author: Radha Mandel MA Service: ? Author Type: Security Controls Assessor Type: Progress Notes Filed: 01/25/2023 1:01 PM Note Text: Patient here today to recollect urine as previous urine culture was contaminated. Patient concerned as that was her second collection with multiple bacteria. Urine collected, dipped, and sent out for culture.[facility]05-31-2023 History of Present illness Narrative* Autumn Valadez APRN.TELEGRAPH SERVICE RATER - 01/25/2023 1:30 PM EDT Images from [...] (BAQSIMI) 3 mg/actuation nasal spray Use 1 [place] in the nose as needed for low [...] Other maternal great grandma I reviewed the Security Controls Assessor's notes with this visit for vital signs, [...] office visit notes from today faxed to [facility] in order to receive her Guardian CGM. [...] appointments 3) Will send chart notes to [facility] so she can get the Guardian CGM. [...] with FRIEDA Urena APRN.FRIEDA [facility] [place] Some elements in this note were copied from my last note and have been updated as appropriate and reflect medical decision making today. documented in this encounterCleveland Clinic [facility]05-31-2023 History of Present illness Narrative* Radha Mandel MA - 01/25/2023 12:59 PM EDT Patient here today to recollect urine as previous urine culture was contaminated. Patient concernedas that was her second collection with multiple bacteria. Urine collected, dipped, and sent out forculture. documented in this encounterCleveland Clinic [facility]05-31-2023 Miscellaneous Notes* Telephone Encounter - Radha Mandel MA - 01/25/2023 11:04 AM EDT Spoke with patient and she is concerned as she knows how to do a clean catch to collect a urine andit is showing multiple bacteria. Patient scheduled for [place] to collect another urine. Please sign orders. [...] based on this specimen documented in this encounterCleveland Clinic [facility]05-30-2023 Miscellaneous Notes* Telephone Encounter - Vivi Smith MD - 01/24/2023 11:58 AM EDT Port Flush order in Outbox on RX paper as unable to write order in Epic * Telephone Encounter - Radha Mandel MA - 01/24/2023 11:37 AM EDT Yaima from [facility] called and they need an order for a port flush. Pleaseplace order and I will fax. documented in this encounterCleveland Clinic [facility]05-26-2023 NoteHNO ID: [id number] Author: Nicolette Cox LPN Service: ? Author Type: LICENSED NURSE Type: Progress Notes Filed: 01/20/2023 3:16 PM Note Text: Gilda presents today for a 1 month follow up visit.Gilda continues to c/o abdominal pain that radiates to her back. She states she did not follow up with pain management.[facility]05-26-2023 NoteHNO ID: [id number] Author: Vivi Smith MD Service: ? Author [...] 200s/. She sees Endo next week. Seeing TANK PROCESSOR and had recent negative pap smear and [...] (BAQSIMI) 3 mg/actuation nasal spray Use 1 [place] in the nose as needed for low [...] movements intact. Conjunctiva/sclera: Conjunc (more content not included)...[facility] 01-12-2023 NoteHNO ID: [id number] Author: Madonna Toro, DO Service: ? Author [...] fevers GI: No nausea, vomiting, or diarrhea PULVERIZER TENDER: Negative for abnormal vaginal bleeding, abnormal vaginal [...] 2 IG Call with results. Madonna Toro, [facility]05-18-2023 NoteHNO ID: [id number] Author: Faviola Engle MA Service: ? Author Type: Security Controls Assessor Type: Progress Notes Filed: 01/12/2023 1:32 PM Note Text: Pt was exposed to a std.[facility]05-16-2023 Miscellaneous Notes* Telephone Encounter - Dori Chapman RN - 01/10/2023 8:58 AM EDT I called pt - pt confirmed 1:00p on documented in this encounterCleveland Clinic [facility]05-09-2023 Miscellaneous Notes* Telephone Encounter - Lucius Santillan [...] forwarded to: SILVINO Trujillo documented in this encounterCleveland Clinic [facility]04-14-2023 Miscellaneous Notes* Telephone Encounter - Nicolette Cox [...] sooner. She states she also left a varinodet message for Dr. Johansen who is through [facility], GI doctor she previously seen. She states she was sent home with a prescription for hydrocodone #12 tablets. She is asking if you can continue to prescribe pain medication until she gets in with GI doctor. Please advise. She states she scheduled a follow up appt with you on 01/20/23 but wants to know if you want to seeher sooner. documented in this encounterCleveland Clinic [facility]04-13-2023 History of Present illness Narrative* Nicolette Cox [...] admissions. Discharge Summary Fide Pitts MD (Physician) [facility] Medicine Expand All Collapse All DISCHARGE SUMMARY [...] eyes ([facility]) hydrOXYzine HCl (ATARAX) 50 mg Take 50 mg by mouth every 6 hours as needed. FUTURE APPOINTMENTS: Follow Up with Gastroenterology: Ricci Burgess MD Discharge Information Row Name ED to Hosp-Admission (Current) from 11/23/2022 in MR 2M MED/SURG Medical Follow-Up Appointment Specialty Primary Care Provider Provider Name Dr. Smith Address [address] [place] [address], [place] [address] Appointment Date 12/08/22 Appointment Time 1:45pm The [...] type 1 with gastroparesis: Patient follows with customer support manager Dr. Leticia Hylton with several smart pill [...] tree and pancreatic region SIGNATURE: Kathleen Hicks APRN.TELEGRAPH SERVICE RATER PAST MEDICAL HISTORY Diagnosis Date Anxiety disorder [...] (BAQSIMI) 3 mg/actuation nasal spray Use 1 [place] in the nose as needed for low [...] pain is different Will refer down to [facility] ED for further evaulation Stable at the moment Unclear etiology On Insulin Pump. HBA1c 3 months ago was 7 Noted Stable Pain out of portion. Sent by private vehicle to rule out blood clot/mesenteric ischemia and furtheretiologies. Vivi Smith MD documented in this encounterCleveland Clinic [facility]04-10-2023 Miscellaneous Notes* Telephone Encounter - Lisa Aguilar LPN - 12/05/2022 3:09 PM EDT Form faxed to [facility]. Lisa Aguilar LPN * Telephone Encounter - Autumn Valadez APRN.CNP - 12/05/2022 12:32 PM EDT Signed Autumn Valadez APRN.FRIEDA * Telephone Encounter - Lisa Aguilar LPN - 12/05/2022 10:04 AM EDT JOSE:08/16/2022 NOV: 12/07/2022 Called patient Verified she has new pump medtronic 770G and will be meeting with [facility] for education on newpump. Patient currently has [...] date of : Yes Type of form: [facility] form requesting question #6 sign and date [...] PM EDT Form and documentation faxed to [facility]. Lisa Aguilar LPN * Telephone Encounter - Kvng Lewis MD - 11/08/2022 12:49 PM EDT Form signed. * Telephone Encounter - Florence Murillo RN - 11/07/2022 3:19 PM EDT Received form from [facility] Medical Form, 6 months of OV notes and CGM download on desk, please sign * Telephone Encounter - Lisa Aguilar LPN - 11/04/2022 11:15 AM EST Completed form faxed to [facility]. Lisa Aguilar LPN * Telephone Encounter - [...] of : Yes Type of form: [facility] / CGM Form received via: Fax When form is completed, fax form to fax number provided.[phone] Form has been forwarded to: SILVINO Hayes Pss documented in this encounterCleveland Clinic [facility]03-29-2023 History of Past illness Narrative* Problem Noted [...] 02/25/2014 morning - On fentanyl gtt per ANTHROPOLOGICAL LINGUIST Plan: - ANTHROPOLOGICAL LINGUIST team to round on patient and manage [...] arise --- Follows with Dr. Garcia at [facility] Plan: - Continuous monitoring - F/u ANTHROPOLOGICAL LINGUIST recs GBS (group B Streptococcus carrier), +RV culture @ 22 wks 11/11/2013 04/16/2014 Hypertension in , antepartum 09/19/2013 01/08/2014 DVT prophylaxis 12/25/2012 09/04/2013 Overview: IPCs DISPOSITION AND FOLLOW-UP 12/25/20122013 Overview: Full code Retinal detachment 10/26/2012 12/25/2012 documented as of this encounter (statuses as of 12/09/2022) [facility]03-29[facility] History of Past illness Narrative* Problem Noted [...] 02/25/2014 morning - On fentanyl gtt per ANTHROPOLOGICAL LINGUIST Plan: - ANTHROPOLOGICAL LINGUIST team to round on patient and manage [...] arise --- Follows with Dr. Garcia at [facility] Plan: - Continuous monitoring - F/u ANTHROPOLOGICAL LINGUIST recs GBS (group B Streptococcus carrier), +RV culture @ 22 wks 11/11/2013 04/16/2014 Hypertension in , antepartum 09/19/2013 01/08/2014 DVT prophylaxis 12/25/2012 09/04/2013 Overview: IPCs DISPOSITION AND FOLLOW-UP 12/25/20122013 Overview: Full code Retinal detachment 10/26/2012 12/25/2012 documented as of this encounter (statuses as of 12/09/2022) [facility]03-29-[facility] History of Past illness Narrative* Problem Noted [...] 02/25/2014 morning - On fentanyl gtt per ANTHROPOLOGICAL LINGUIST Plan: - ANTHROPOLOGICAL LINGUIST team to round on patient and manage [...] arise --- Follows with Dr. Garcia at [facility] Plan: - Continuous monitoring - F/u ANTHROPOLOGICAL LINGUIST recs GBS (group B Streptococcus carrier), +RV culture @ 22 wks 11/11/2013 04/16/2014 Hypertension in , antepartum 09/19/2013 01/08/2014 DVT prophylaxis 12/25/2012 09/04/2013 Overview: IPCs DISPOSITION AND FOLLOW-UP 12/25/20122013 Overview: Full code Retinal detachment 10/26/2012 12/25/2012 documented as of this encounter (statuses as of 01/03/2023) [facility] History of Past illness Narrative* Problem Noted [...] 02/25/2014 morning - On fentanyl gtt per ANTHROPOLOGICAL LINGUIST Plan: - ANTHROPOLOGICAL LINGUIST team to round on patient and manage [...] arise --- Follows with Dr. Garcia at [facility] Plan: - Continuous monitoring - F/u ANTHROPOLOGICAL LINGUIST recs GBS (group B Streptococcus carrier), +RV culture @ 22 wks 11/11/2013 04/16/2014 Hypertension in , antepartum 09/19/2013 01/08/2014 DVT prophylaxis 12/25/2012 09/04/2013 Overview: IPCs DISPOSITION AND FOLLOW-UP 12/25/20122013 Overview: Full code Retinal detachment 10/26/2012 12/25/2012 documented as of this encounter (statuses as of 01/10/2023) [facility]03[facility] History of Past illness Narrative* Problem Noted [...] 02/25/2014 morning - On fentanyl gtt per ANTHROPOLOGICAL LINGUIST Plan: - ANTHROPOLOGICAL LINGUIST team to round on patient and manage [...] arise --- Follows with Dr. Garcia at [facility] Plan: - Continuous monitoring - F/u ANTHROPOLOGICAL LINGUIST recs GBS (group B Streptococcus carrier), +RV culture @ 22 wks 11/11/2013 04/16/2014 Hypertension in , antepartum 09/19/2013 01/08/2014 DVT prophylaxis 12/25/2012 09/04/2013 Overview: IPCs DISPOSITION AND FOLLOW-UP 12/25/20122013 Overview: Full code Retinal detachment 10/26/2012 12/25/2012 documented as of this encounter (statuses as of 01/24/2023) [facility] History of Past illness Narrative* Problem Noted [...] 02/25/2014 morning - On fentanyl gtt per ANTHROPOLOGICAL LINGUIST Plan: - ANTHROPOLOGICAL LINGUIST team to round on patient and manage [...] arise --- Follows with Dr. Garcia at [facility] Plan: - Continuous monitoring - F/u ANTHROPOLOGICAL LINGUIST recs GBS (group B Streptococcus carrier), +RV culture @ 22 wks 11/11/2013 04/16/2014 Hypertension in , antepartum 09/19/2013 01/08/2014 DVT prophylaxis 12/25/2012 09/04/2013 Overview: IPCs DISPOSITION AND FOLLOW-UP 12/25/20122013 Overview: Full code Retinal detachment 10/26/2012 12/25/2012 documented as of this encounter (statuses as of 01/25/2023) [facility]03-[facility] History of Past illness Narrative* Problem Noted [...] 02/25/2014 morning - On fentanyl gtt per ANTHROPOLOGICAL LINGUIST Plan: - ANTHROPOLOGICAL LINGUIST team to round on patient and manage [...] arise --- Follows with Dr. Garcia at [facility] Plan: - Continuous monitoring - F/u ANTHROPOLOGICAL LINGUIST recs GBS (group B Streptococcus carrier), +RV culture @ 22 wks 11/11/2013 04/16/2014 Hypertension in , antepartum 09/19/2013 01/08/2014 DVT prophylaxis 12/25/2012 09/04/2013 Overview: IPCs DISPOSITION AND FOLLOW-UP 12/25/20122013 Overview: Full code Retinal detachment 10/26/2012 12/25/2012 documented as of this encounter (statuses as of 01/25/2023) [facility] History of Past illness Narrative* Problem Noted [...] 02/25/2014 morning - On fentanyl gtt per ANTHROPOLOGICAL LINGUIST Plan: - ANTHROPOLOGICAL LINGUIST team to round on patient and manage [...] arise --- Follows with Dr. Garcia at [facility] Plan: - Continuous monitoring - F/u ANTHROPOLOGICAL LINGUIST recs GBS (group B Streptococcus carrier), +RV culture @ 22 wks 11/11/2013 04/16/2014 Hypertension in , antepartum 09/19/2013 01/08/2014 DVT prophylaxis 12/25/2012 09/04/2013 Overview: IPCs DISPOSITION AND FOLLOW-UP 12/25/20122013 Overview: Full code Retinal detachment 10/26/2012 12/25/2012 documented as of this encounter (statuses as of 01/25/2023) [facility]03[facility] History of Past illness Narrative* Problem Noted [...] 02/25/2014 morning - On fentanyl gtt per ANTHROPOLOGICAL LINGUIST Plan: - ANTHROPOLOGICAL LINGUIST team to round on patient and manage [...] arise --- Follows with Dr. Garcia at [facility] Plan: - Continuous monitoring - F/u ANTHROPOLOGICAL LINGUIST recs GBS (group B Streptococcus carrier), +RV culture @ 22 wks 11/11/2013 04/16/2014 Hypertension in , antepartum 09/19/2013 01/08/2014 DVT prophylaxis 12/25/2012 09/04/2013 Overview: IPCs DISPOSITION AND FOLLOW-UP 12/25/20122013 Overview: Full code Retinal detachment 10/26/2012 12/25/2012 documented as of this encounter (statuses as of 01/26/2023) [facility] History of Past illness Narrative* Problem Noted [...] 02/25/2014 morning - On fentanyl gtt per ANTHROPOLOGICAL LINGUIST Plan: - ANTHROPOLOGICAL LINGUIST team to round on patient and manage [...] arise --- Follows with Dr. Garcia at [facility] Plan: - Continuous monitoring - F/u ANTHROPOLOGICAL LINGUIST recs GBS (group B Streptococcus carrier), +RV culture @ 22 wks 11/11/2013 04/16/2014 Hypertension in , antepartum 09/19/2013 01/08/2014 DVT prophylaxis 12/25/2012 09/04/2013 Overview: IPCs DISPOSITION AND FOLLOW-UP 12/25/20122013 Overview: Full code Retinal detachment 10/26/2012 12/25/2012 documented as of this encounter (statuses as of 01/26/2023) [facility]03-[facility] History of Past illness Narrative* Problem Noted [...] 02/25/2014 morning - On fentanyl gtt per ANTHROPOLOGICAL LINGUIST Plan: - ANTHROPOLOGICAL LINGUIST team to round on patient and manage [...] arise --- Follows with Dr. Garcia at [facility] Plan: - Continuous monitoring - F/u ANTHROPOLOGICAL LINGUIST recs GBS (group B Streptococcus carrier), +RV culture @ 22 wks 11/11/2013 04/16/2014 Hypertension in , antepartum 09/19/2013 01/08/2014 DVT prophylaxis 12/25/2012 09/04/2013 Overview: IPCs DISPOSITION AND FOLLOW-UP 12/25/20122013 Overview: Full code Retinal detachment 10/26/2012 12/25/2012 documented as of this encounter (statuses as of 02/01/2023) [facility]03-13-2023 History of Present illness Narrative* Abelardo La [...] (BAQSIMI) 3 mg/actuation nasal spray Use 1 [place] in the nose as needed for low [...] as needed Abelardo La documented in this encounterCleveland Clinic [facility]03-09-2023 Miscellaneous Notes* Telephone Encounter - Florence Murillo [...] name: Dr Joshua Maria documented in this encounterCleveland Clinic [facility]02-25-2023 History of Present illness Narrative* Mary Cha [...] (BAQSIMI) 3 mg/actuation nasal spray Use 1 [place] in the nose as needed for low [...] INTRAMUSCULAR SOLUTION Abelardo La documented in this encounterCleveland Clinic [facility]02-07-2023 History of Present illness Narrative* Leesa Huddleston PA-C - 10/04/2022 2:00 PM EST DATE OF SERVICE: 10/04/2022 PATIENT NAME: Kathleen Villa : 1995 AGE: 27 y.o. CLINIC NUMBER: [id number] Visit type: Established patient Chief Complaint Patient [...] 2:01 PM REFERRING MD: documented in this encounterSParkwood [id number] Miscellaneous Notes* Telephone Encounter - David De Jesus RN - 09/07/2022 4:16 PM EST Completed PA via [employer]. CaseId:[id number]; Status:Approved; Valid08/08/2022 - 09/07/2023; Patient notified. * Telephone Encounter - Ira Maria - 09/06/2022 3:12 PM EST Pt's insurance will no longer cover any contour products. She needs scripts for new meter, test strips [facility] [employer] [facility]. States her insurance will cover just about anything other than contour products. She requests a brand that is compatible with her medtronic pump, if possible. documented in this encounterCleveland Clinic [facility]12-22-2022 Miscellaneous Notes* Telephone Encounter - Lisa Aguilar LPN - 08/18/2022 3:37 PM EST Faxed completed form, last 2 Visit Progress Notes and pump upload to [facility] medical. Lisa Aguilar LPN * Telephone Encounter [...] PM EST Forms received via fax from [facility] Medical for CGM and pump supplies. [facility] Medical is requiring Last 2 office visit notes and Medtronic pump download. Called patient to verify needs. Patient needs replacement for 630 Medtronic pump and Guradian sensors. Patient initial visit, Virtual Visit with Dr. Lewis on 07/11/2022. Next visit to be scheduled with Autumn Valadez CNP in person 1-3 months. Patient aware [facility] Medical requires pump download, will download at next visit. Please call patient and schedule appointment with Autumn Valadez CNP Thank you, Lisa Aguilar LPN documented in this encounterCleveland Clinic [facility]12-20-2022 History of Present illness Narrative* Autumn Valadez [...] (BAQSIMI) 3 mg/actuation nasal spray Use 1 [place] in the nose as needed for low [...] Other maternal great grandma I reviewed the Security Controls Assessor's notes with this visit for vital signs, [...] patient is currently taking Novolog insulin via [employer] 630G insulin pump in manual mode at [...] November with Dr. Lewis 6 mo with ri Autumn Valadez APRN.[facility] Endocrinology & Metabolism [place] documented in this encounterCleveland Clinic Children'[facility]11-14-2022 History of Present illness Narrative* Kvng Lewis MD - 07/11/2022 11:00 AM EST VIRTUAL VISIT DIABETES NOTE Reason for Consultation: DM Type 1 HISTORY OF PRESENT ILLNESS: Ms. Villa is a 26 year old female presenting here today for a follow up of DM Type 1. She would like to transfer to care Dr. Khoury Lives in [place] [address] dx age 14 ( 12 years) Known [...] due to convenient location She lives in [place]. Dr. Khoury was managing patient during her [...] mouth every 6 hours as needed. lancets ([employer]co[employer] LANCETS) 30 gauge 10 x daily DX [...] year old female is being evaluated via [facility] for DM1 Complicated patient with complex [...] encourage patient to schedule appt with our PROPERTY AND EQUIPMENT CLERK Autumn Valadez in the next 1-3 mos in person See me after 3 mos after h/o abnormal TSH I have place another order for TSH/ Free T4 and TPO AB Will also place another order for HGa1c as it is has been over 6mos Kvng Lewis MD I spent a total of 40 minutes on the date of the service which included [id number] patient care, completing clinical documentation, performing a [...] Yes Heat Intolerance?: Yes documented in this encounterCleveland Clinic Children'[facility]11-09-2022 Miscellaneous Notes* Telephone Encounter - Lisa Agiular LPN - 07/06/2022 12:21 PM EST Called patient, left message to call office. Also, sent detailed [employer] message re: upcoming Virtual appointment. Lisa Aguilar LPN * Telephone Encounter - Ira Maria - 07/06/2022 12:15 PM EST Pt calling, says she is returning call from nurse, does not remember the name of the nurse. She can be reached at [phone] documented in this encounterCleveland Clinic [facility]10-20-2022 Miscellaneous Notes* Telephone Encounter - Anahi Benito MA - 06/16/2022 9:29 AM EDT Received [employer] form and placed on physicians desk for review. Form faxed with confirmation. documented in this encounterCleveland Clinic [facility]10-12-2022 Miscellaneous Notes* Telephone Encounter - David De [...] fax form to fax number provided # [phone] Form has been forwarded to: SILVINO/nidia documented in this encounterCleveland Clinic Children'S [facility] For Rehabilitation10-11-2022 History of Present illness Narrative* Phoebe Mckeon, ESTEFANIA.TELEGRAPH SERVICE RATER - 06/07/2022 2:25 PM EDT Kathleen Villa [...] done swinging. RTC- 1 yr/prn Phoebe Mckeon APRN.FRIEDA documented in this [facility]10-11-2022 Nurse Note* Alysha Petersen MA - 06/07/2022 2:11 PM EDT Pt is here today for JASON. Pt has no concerns at this time. documented in this [facility]09-16-2022 Miscellaneous Notes* Telephone Encounter - Anahi Benito MA - 05/13/2022 12:23 PM EDT Received [employer] [facility] forms for pump/cgm supplies. Patient next visit is in June and has not been seen since 08/24/2021. [employer] message sent to patient requesting pump upload. documented in this [facility]09-15-2022 Nurse Note* Zohreh Rodarte LPN - 05/12/2022 10:15 AM EDT Pt given 2 doses of Rocephin 250 mg, total 500 mg in the left buttock. Pt tolerated injection well.BP 110/70. documented in this [facility]09-15-2022 History of Present illness Narrative* Phoebe Mckeon APRN.FRIEDA - 05/12/2022 9:34 AM EDT . documented in this [facility]09-13-2022 Miscellaneous Notes* Telephone Encounter - Dori Chapman RN - 05/10/2022 1:38 PM EDT PT coming for injection on 05/12/22 at 9:30a advised to bring medication with her to appt. Pt voiced understanding. 4 week JASON scheduled * Telephone Encounter - Phoebe Mckeon APRN.FRIEDA - 05/10/2022 11:34 AM EDT Please notify [...] wks for a JASON Thanks Phoebe Mckeon APRN.TELEGRAPH SERVICE RATER documented in this encounterCleveland Clinic [facility]09-07-2022 Miscellaneous Notes* Telephone Encounter - Sol Choe [...] for insulin aspart U-100 documented in this encounterCleveland Clinic Children'S [facility] For Rehabilitation09-06-2022 Miscellaneous Notes* Telephone Encounter - Darnell Vera RN - 05/03/2022 11:49 AM EDT Pended - please file if appropriate. documented in this encounterCleveland Clinic [facility]09-06-2022 Miscellaneous Notes* Telephone Encounter - Clemencia Ma [...] scheduled appointment Yes documented in this encounterCleveland Clinic Children'S [facility] For Rehabilitation08-22-2022 Instructions* Patient Instructions* Dashawn Cain APRN.FRIEDA - 04/18/2022 8:39 AM EDT Labs ordered- urine tests. Have done at Urgent care or main hospital. We will call with results. Referral placed to PULVERIZER TENDER clinic at [facility]. This should get in contact with you within the next couple weeks if not you may call central scheduling at [phone] to inquire about your appointment. documented in this encounterCleveland Clinic [facility]08-22-2022 History of Present illness Narrative* Dashawn Cain APRN.CNP - 04/18/2022 8:22 AM EDT This note was created using Eventupriter. Subjective Kathleen Villa is a 26 year [...] apparently. She does not have a current ANTHROPOLOGICAL LINGUIST. Her previous PULVERIZER TENDER is Dr. Kristin Garcia at [facility]. She had noticed some [...] TABLET This note was partially generated using [employer] voice recognition system. Dashawn Cain APRN.TELEGRAPH SERVICE RATER documented in this encounterCleveland Clinic [facility]07-15-2022 History of Present illness Narrative* Teressa Mckoy RN - 03/11/2022 1:10 PM EDT 2mg/2ml Activase instilled in port at 1207. Blood return obtained at 1255. 10ml withdrawn and discarded. Port flushed with saline and heparin per protocol. documented in this encounterCleveland Clinic [facility]07-11-2022 History of Present illness Narrative* Teressa Mckoy RN - 03/07/2022 4:38 PM EDT Unable to obtain blood return. Will notify ordering practitioner for Activase order. Patient reports unable to stay today. Will return Monday03/11/22. documented in this encounterCleveland Clinic [facility]06-07-2022 [facility]05-06-2022 Miscellaneous Notes* Telephone Encounter - Anahi Haywood MA - 12/31/2021 11:44 AM EDT Received [facility] Medical request for most recent office notes and CGM data. Office notes printed for physicians signature. Called patient on mobile number and advised if she can upload her pump. Patient stated she is not at home and will upload as soon as she can. Advised patient no problem and she cansend mychart message once upload is completed. Patient voiced understanding. documented in this encounterCleveland Clinic Children'[facility]05-05-2022 [facility]05-03-2022 Evaluation + Plan note Diagnostic Tests Pending * Complete Metabolic Panel 12/28/21 * Lipase Level 12/28/21 [facility]30[facility]20[facility] Miscellaneous Notes* Telephone Encounter - Velia Kaur MD - 12/25/2021 12:42 PM EDT Patient contacted nurse buddhist monk. She is out of infusion sets for [...] she has any difficulties. documented in this encounterCleveland Clinic [facility]04-11-2022 Miscellaneous Notes* Telephone Encounter - Loretta Brown Ma - 12/06/2021 9:00 AM EDT [facility] Patient has been approved for insulin aspart U-100 (NOVOLOG U-100 INSULIN ASPART) 100 unit/mL from 11/02/2021 to 12/04/2022 No further action is needed documented in this encounterCleveland Clinic [facility]02-28-2022 [facility]02-25-2022 [facility]02-15-2022 Miscellaneous Notes* Telephone Encounter - Jess Guardado - 10/12/2021 10:25 AM EST Left VM for patient to call office to offer sooner apt with JOCELYNE Mcdonald. documented in this encounterCleveland Clinic [facility]10-09-2021 [facility] History of Past illness Narrative* Problem Noted [...] 02/25/2014 morning - On fentanyl gtt per ANTHROPOLOGICAL LINGUIST Plan: - ANTHROPOLOGICAL LINGUIST team to round on patient and manage [...] arise --- Follows with Dr. Garcia at [facility] Plan: - Continuous monitoring - F/u ANTHROPOLOGICAL LINGUIST recs GBS (group B Streptococcus carrier), +RV culture @ 22 wks 11/11/2013 04/16/2014 Hypertension in , antepartum 09/19/2013 01/08/2014 DVT prophylaxis 12/25/2012 09/04/2013 Overview: IPCs DISPOSITION AND FOLLOW-UP 12/25/20122013 Overview: Full code Retinal detachment 10/26/2012 12/25/2012 documented as of this encounter (statuses as of 11/26/2021) [facility]06-[facility]2016 History of Past illness Narrative* Problem Noted [...] 02/25/2014 morning - On fentanyl gtt per ANTHROPOLOGICAL LINGUIST Plan: - ANTHROPOLOGICAL LINGUIST team to round on patient and manage [...] arise --- Follows with Dr. Garcia at [facility] Plan: - Continuous monitoring - F/u ANTHROPOLOGICAL LINGUIST recs GBS (group B Streptococcus carrier), +RV culture @ 22 wks 11/11/2013 04/16/2014 Hypertension in , antepartum 09/19/2013 01/08/2014 DVT prophylaxis 12/25/2012 09/04/2013 Overview: IPCs DISPOSITION AND FOLLOW-UP 12/25/20122013 Overview: Full code Retinal detachment 10/26/2012 12/25/2012 documented as of this encounter (statuses as of 11/27/2021) [facility] History of Past illness Narrative* Problem Noted [...] 02/25/2014 morning - On fentanyl gtt per ANTHROPOLOGICAL LINGUIST Plan: - ANTHROPOLOGICAL LINGUIST team to round on patient and manage [...] arise --- Follows with Dr. Garcia at [facility] Plan: - Continuous monitoring - F/u ANTHROPOLOGICAL LINGUIST recs GBS (group B Streptococcus carrier), +RV culture @ 22 wks 11/11/2013 04/16/2014 Hypertension in , antepartum 09/19/2013 01/08/2014 DVT prophylaxis 12/25/2012 09/04/2013 Overview: IPCs DISPOSITION AND FOLLOW-UP 12/25/20122013 Overview: Full code Retinal detachment 10/26/2012 12/25/2012 documented as of this encounter (statuses as of 12/06/2021) [facility] History of Past illness Narrative* Problem Noted [...] 02/25/2014 morning - On fentanyl gtt per ANTHROPOLOGICAL LINGUIST Plan: - ANTHROPOLOGICAL LINGUIST team to round on patient and manage [...] arise --- Follows with Dr. Garcia at [facility] Plan: - Continuous monitoring - F/u ANTHROPOLOGICAL LINGUIST recs GBS (group B Streptococcus carrier), +RV culture @ 22 wks 11/11/2013 04/16/2014 Hypertension in , antepartum 09/19/2013 01/08/2014 DVT prophylaxis 12/25/2012 09/04/2013 Overview: IPCs DISPOSITION AND FOLLOW-UP 12/25/20122013 Overview: Full code Retinal detachment 10/26/2012 12/25/2012 documented as of this encounter (statuses as of 12/26/2021) [facility] History of Past illness Narrative* Problem Noted [...] 02/25/2014 morning - On fentanyl gtt per ANTHROPOLOGICAL LINGUIST Plan: - ANTHROPOLOGICAL LINGUIST team to round on patient and manage [...] arise --- Follows with Dr. Garcia at [facility] Plan: - Continuous monitoring - F/u ANTHROPOLOGICAL LINGUIST recs GBS (group B Streptococcus carrier), +RV culture @ 22 wks 11/11/2013 04/16/2014 Hypertension in , antepartum 09/19/2013 01/08/2014 DVT prophylaxis 12/25/2012 09/04/2013 Overview: IPCs DISPOSITION AND FOLLOW-UP 12/25/20122013 Overview: Full code Retinal detachment 10/26/2012 12/25/2012 documented as of this encounter (statuses as of 12/27/2021) [facility] History of Past illness Narrative* Problem Noted [...] 02/25/2014 morning - On fentanyl gtt per ANTHROPOLOGICAL LINGUIST Plan: - ANTHROPOLOGICAL LINGUIST team to round on patient and manage [...] arise --- Follows with Dr. Garcia at [facility] Plan: - Continuous monitoring - F/u ANTHROPOLOGICAL LINGUIST recs GBS (group B Streptococcus carrier), +RV culture @ 22 wks 11/11/2013 04/16/2014 Hypertension in , antepartum 09/19/2013 01/08/2014 DVT prophylaxis 12/25/2012 09/04/2013 Overview: IPCs DISPOSITION AND FOLLOW-UP 12/25/20122013 Overview: Full code Retinal detachment 10/26/2012 12/25/2012 documented as of this encounter (statuses as of 12/29/2021) [facility] History of Past illness Narrative* Problem Noted [...] 02/25/2014 morning - On fentanyl gtt per ANTHROPOLOGICAL LINGUIST Plan: - ANTHROPOLOGICAL LINGUIST team to round on patient and manage [...] arise --- Follows with Dr. Garcia at [facility] Plan: - Continuous monitoring - F/u ANTHROPOLOGICAL LINGUIST recs GBS (group B Streptococcus carrier), +RV culture @ 22 wks 11/11/2013 04/16/2014 Hypertension in , antepartum 09/19/2013 01/08/2014 DVT prophylaxis 12/25/2012 09/04/2013 Overview: IPCs DISPOSITION AND FOLLOW-UP 12/25/20122013 Overview: Full code Retinal detachment 10/26/2012 12/25/2012 documented as of this encounter (statuses as of 01/28/2022) [facility] History of Past illness Narrative* Problem Noted [...] 02/25/2014 morning - On fentanyl gtt per ANTHROPOLOGICAL LINGUIST Plan: - ANTHROPOLOGICAL LINGUIST team to round on patient and manage [...] arise --- Follows with Dr. Garcia at [facility] Plan: - Continuous monitoring - F/u ANTHROPOLOGICAL LINGUIST recs GBS (group B Streptococcus carrier), +RV culture @ 22 wks 11/11/2013 04/16/2014 Hypertension in , antepartum 09/19/2013 01/08/2014 DVT prophylaxis 12/25/2012 09/04/2013 Overview: IPCs DISPOSITION AND FOLLOW-UP 12/25/20122013 Overview: Full code Retinal detachment 10/26/2012 12/25/2012 documented as of this encounter (statuses as of 01/30/2022) [facility] History of Past illness Narrative* Problem Noted [...] 02/25/2014 morning - On fentanyl gtt per ANTHROPOLOGICAL LINGUIST Plan: - ANTHROPOLOGICAL LINGUIST team to round on patient and manage [...] arise --- Follows with Dr. Garcia at [facility] Plan: - Continuous monitoring - F/u ANTHROPOLOGICAL LINGUIST recs GBS (group B Streptococcus carrier), +RV culture @ 22 wks 11/11/2013 04/16/2014 Hypertension in , antepartum 09/19/2013 01/08/2014 DVT prophylaxis 12/25/2012 09/04/2013 Overview: IPCs DISPOSITION AND FOLLOW-UP 12/25/20122013 Overview: Full code Retinal detachment 10/26/2012 12/25/2012 documented as of this encounter (statuses as of 02/24/2022) [facility] History of Past illness Narrative* Problem Noted [...] 02/25/2014 morning - On fentanyl gtt per ANTHROPOLOGICAL LINGUIST Plan: - ANTHROPOLOGICAL LINGUIST team to round on patient and manage [...] arise --- Follows with Dr. Garcia at [facility] Plan: - Continuous monitoring - F/u ANTHROPOLOGICAL LINGUIST recs GBS (group B Streptococcus carrier), +RV culture @ 22 wks 11/11/2013 04/16/2014 Hypertension in , antepartum 09/19/2013 01/08/2014 DVT prophylaxis 12/25/2012 09/04/2013 Overview: IPCs DISPOSITION AND FOLLOW-UP 12/25/20122013 Overview: Full code Retinal detachment 10/26/2012 12/25/2012 documented as of this encounter (statuses as of 03/01/2022) [facility] History of Past illness Narrative* Problem Noted [...] 02/25/2014 morning - On fentanyl gtt per ANTHROPOLOGICAL LINGUIST Plan: - ANTHROPOLOGICAL LINGUIST team to round on patient and manage [...] arise --- Follows with Dr. Garcia at [facility] Plan: - Continuous monitoring - F/u ANTHROPOLOGICAL LINGUIST recs GBS (group B Streptococcus carrier), +RV culture @ 22 wks 11/11/2013 04/16/2014 Hypertension in , antepartum 09/19/2013 01/08/2014 DVT prophylaxis 12/25/2012 09/04/2013 Overview: IPCs DISPOSITION AND FOLLOW-UP 12/25/20122013 Overview: Full code Retinal detachment 10/26/2012 12/25/2012 documented as of this encounter (statuses as of 03/07/2022) [facility] History of Past illness Narrative* Problem Noted [...] 02/25/2014 morning - On fentanyl gtt per ANTHROPOLOGICAL LINGUIST Plan: - ANTHROPOLOGICAL LINGUIST team to round on patient and manage [...] arise --- Follows with Dr. Garcia at [facility] Plan: - Continuous monitoring - F/u ANTHROPOLOGICAL LINGUIST recs GBS (group B Streptococcus carrier), +RV culture @ 22 wks 11/11/2013 04/16/2014 Hypertension in , antepartum 09/19/2013 01/08/2014 DVT prophylaxis 12/25/2012 09/04/2013 Overview: IPCs DISPOSITION AND FOLLOW-UP 12/25/20122013 Overview: Full code Retinal detachment 10/26/2012 12/25/2012 documented as of this encounter (statuses as of 03/10/2022) [facility] History of Past illness Narrative* Problem Noted [...] 02/25/2014 morning - On fentanyl gtt per ANTHROPOLOGICAL LINGUIST Plan: - ANTHROPOLOGICAL LINGUIST team to round on patient and manage [...] arise --- Follows with Dr. Garcia at [facility] Plan: - Continuous monitoring - F/u ANTHROPOLOGICAL LINGUIST recs GBS (group B Streptococcus carrier), +RV culture @ 22 wks 11/11/2013 04/16/2014 Hypertension in , antepartum 09/19/2013 01/08/2014 DVT prophylaxis 12/25/2012 09/04/2013 Overview: IPCs DISPOSITION AND FOLLOW-UP 12/25/20122013 Overview: Full code Retinal detachment 10/26/2012 12/25/2012 documented as of this encounter (statuses as of 03/11/2022) [facility] History of Past illness Narrative* Problem Noted [...] 02/25/2014 morning - On fentanyl gtt per ANTHROPOLOGICAL LINGUIST Plan: - ANTHROPOLOGICAL LINGUIST team to round on patient and manage [...] arise --- Follows with Dr. Garcia at [facility] Plan: - Continuous monitoring - F/u ANTHROPOLOGICAL LINGUIST recs GBS (group B Streptococcus carrier), +RV culture @ 22 wks 11/11/2013 04/16/2014 Hypertension in , antepartum 09/19/2013 01/08/2014 DVT prophylaxis 12/25/2012 09/04/2013 Overview: IPCs DISPOSITION AND FOLLOW-UP 12/25/20122013 Overview: Full code Retinal detachment 10/26/2012 12/25/2012 documented as of this encounter (statuses as of 04/18/2022) [facility] History of Past illness Narrative* Problem Noted [...] 02/25/2014 morning - On fentanyl gtt per ANTHROPOLOGICAL LINGUIST Plan: - ANTHROPOLOGICAL LINGUIST team to round on patient and manage [...] arise --- Follows with Dr. Garcia at [facility] Plan: - Continuous monitoring - F/u ANTHROPOLOGICAL LINGUIST recs GBS (group B Streptococcus carrier), +RV culture @ 22 wks 11/11/2013 04/16/2014 Hypertension in , antepartum 09/19/2013 01/08/2014 DVT prophylaxis 12/25/2012 09/04/2013 Overview: IPCs DISPOSITION AND FOLLOW-UP 12/25/20122013 Overview: Full code Retinal detachment 10/26/2012 12/25/2012 documented as of this encounter (statuses as of 05/03/2022) [facility] History of Past illness Narrative* Problem Noted [...] 02/25/2014 morning - On fentanyl gtt per ANTHROPOLOGICAL LINGUIST Plan: - ANTHROPOLOGICAL LINGUIST team to round on patient and manage [...] arise --- Follows with Dr. Garcia at [facility] Plan: - Continuous monitoring - F/u ANTHROPOLOGICAL LINGUIST recs GBS (group B Streptococcus carrier), +RV culture @ 22 wks 11/11/2013 04/16/2014 Hypertension in , antepartum 09/19/2013 01/08/2014 DVT prophylaxis 12/25/2012 09/04/2013 Overview: IPCs DISPOSITION AND FOLLOW-UP 12/25/20122013 Overview: Full code Retinal detachment 10/26/2012 12/25/2012 documented as of this encounter (statuses as of 05/03/2022) [facility] History of Past illness Narrative* Problem Noted [...] 02/25/2014 morning - On fentanyl gtt per ANTHROPOLOGICAL LINGUIST Plan: - ANTHROPOLOGICAL LINGUIST team to round on patient and manage [...] arise --- Follows with Dr. Garcia at [facility] Plan: - Continuous monitoring - F/u ANTHROPOLOGICAL LINGUIST recs GBS (group B Streptococcus carrier), +RV culture @ 22 wks 11/11/2013 04/16/2014 Hypertension in , antepartum 09/19/2013 01/08/2014 DVT prophylaxis 12/25/2012 09/04/2013 Overview: IPCs DISPOSITION AND FOLLOW-UP 12/25/20122013 Overview: Full code Retinal detachment 10/26/2012 12/25/2012 documented as of this encounter (statuses as of 05/04/2022) [facility] History of Past illness Narrative* Problem Noted [...] 02/25/2014 morning - On fentanyl gtt per ANTHROPOLOGICAL LINGUIST Plan: - ANTHROPOLOGICAL LINGUIST team to round on patient and manage [...] arise --- Follows with Dr. Garcia at [facility] Plan: - Continuous monitoring - F/u ANTHROPOLOGICAL LINGUIST recs GBS (group B Streptococcus carrier), +RV culture @ 22 wks 11/11/2013 04/16/2014 Hypertension in , antepartum 09/19/2013 01/08/2014 DVT prophylaxis 12/25/2012 09/04/2013 Overview: IPCs DISPOSITION AND FOLLOW-UP 12/25/20122013 Overview: Full code Retinal detachment 10/26/2012 12/25/2012 documented as of this encounter (statuses as of 05/10/2022) [facility] History of Past illness Narrative* Problem Noted [...] 02/25/2014 morning - On fentanyl gtt per ANTHROPOLOGICAL LINGUIST Plan: - ANTHROPOLOGICAL LINGUIST team to round on patient and manage [...] arise --- Follows with Dr. Garcia at [facility] Plan: - Continuous monitoring - F/u ANTHROPOLOGICAL LINGUIST recs GBS (group B Streptococcus carrier), +RV culture @ 22 wks 11/11/2013 04/16/2014 Hypertension in , antepartum 09/19/2013 01/08/2014 DVT prophylaxis 12/25/2012 09/04/2013 Overview: IPCs DISPOSITION AND FOLLOW-UP 12/25/20122013 Overview: Full code Retinal detachment 10/26/2012 12/25/2012 documented as of this encounter (statuses as of 05/11/2022) [facility] History of Past illness Narrative* Problem Noted [...] 02/25/2014 morning - On fentanyl gtt per ANTHROPOLOGICAL LINGUIST Plan: - ANTHROPOLOGICAL LINGUIST team to round on patient and manage [...] arise --- Follows with Dr. Garcia at [facility] Plan: - Continuous monitoring - F/u ANTHROPOLOGICAL LINGUIST recs GBS (group B Streptococcus carrier), +RV culture @ 22 wks 11/11/2013 04/16/2014 Hypertension in , antepartum 09/19/2013 01/08/2014 DVT prophylaxis 12/25/2012 09/04/2013 Overview: IPCs DISPOSITION AND FOLLOW-UP 12/25/20122013 Overview: Full code Retinal detachment 10/26/2012 12/25/2012 documented as of this encounter (statuses as of 05/12/2022) [facility] History of Past illness Narrative* Problem Noted [...] 02/25/2014 morning - On fentanyl gtt per ANTHROPOLOGICAL LINGUIST Plan: - ANTHROPOLOGICAL LINGUIST team to round on patient and manage [...] arise --- Follows with Dr. Garcia at [facility] Plan: - Continuous monitoring - F/u ANTHROPOLOGICAL LINGUIST recs GBS (group B Streptococcus carrier), +RV culture @ 22 wks 11/11/2013 04/16/2014 Hypertension in , antepartum 09/19/2013 01/08/2014 DVT prophylaxis 12/25/2012 09/04/2013 Overview: IPCs DISPOSITION AND FOLLOW-UP 12/25/20122013 Overview: Full code Retinal detachment 10/26/2012 12/25/2012 documented as of this encounter (statuses as of 05/13/2022) [facility] History of Past illness Narrative* Problem Noted [...] 02/25/2014 morning - On fentanyl gtt per ANTHROPOLOGICAL LINGUIST Plan: - ANTHROPOLOGICAL LINGUIST team to round on patient and manage [...] arise --- Follows with Dr. Garcia at [facility] Plan: - Continuous monitoring - F/u ANTHROPOLOGICAL LINGUIST recs GBS (group B Streptococcus carrier), +RV culture @ 22 wks 11/11/2013 04/16/2014 Hypertension in , antepartum 09/19/2013 01/08/2014 DVT prophylaxis 12/25/2012 09/04/2013 Overview: IPCs DISPOSITION AND FOLLOW-UP 12/25/20122013 Overview: Full code Retinal detachment 10/26/2012 12/25/2012 documented as of this encounter (statuses as of 05/30/2022) [facility] History of Past illness Narrative* Problem Noted [...] 02/25/2014 morning - On fentanyl gtt per ANTHROPOLOGICAL LINGUIST Plan: - ANTHROPOLOGICAL LINGUIST team to round on patient and manage [...] arise --- Follows with Dr. Garcia at [facility] Plan: - Continuous monitoring - F/u ANTHROPOLOGICAL LINGUIST recs GBS (group B Streptococcus carrier), +RV culture @ 22 wks 11/11/2013 04/16/2014 Hypertension in , antepartum 09/19/2013 01/08/2014 DVT prophylaxis 12/25/2012 09/04/2013 Overview: IPCs DISPOSITION AND FOLLOW-UP 12/25/20122013 Overview: Full code Retinal detachment 10/26/2012 12/25/2012 documented as of this encounter (statuses as of 06/07/2022) [facility] History of Past illness Narrative* Problem Noted [...] 02/25/2014 morning - On fentanyl gtt per ANTHROPOLOGICAL LINGUIST Plan: - ANTHROPOLOGICAL LINGUIST team to round on patient and manage [...] arise --- Follows with Dr. Garcia at [facility] Plan: - Continuous monitoring - F/u ANTHROPOLOGICAL LINGUIST recs GBS (group B Streptococcus carrier), +RV culture @ 22 wks 11/11/2013 04/16/2014 Hypertension in , antepartum 09/19/2013 01/08/2014 DVT prophylaxis 12/25/2012 09/04/2013 Overview: IPCs DISPOSITION AND FOLLOW-UP 12/25/20122013 Overview: Full code Retinal detachment 10/26/2012 12/25/2012 documented as of this encounter (statuses as of 06/08/2022) [facility] History of Past illness Narrative* Problem Noted [...] 02/25/2014 morning - On fentanyl gtt per ANTHROPOLOGICAL LINGUIST Plan: - ANTHROPOLOGICAL LINGUIST team to round on patient and manage [...] arise --- Follows with Dr. Garcia at [facility] Plan: - Continuous monitoring - F/u ANTHROPOLOGICAL LINGUIST recs GBS (group B Streptococcus carrier), +RV culture @ 22 wks 11/11/2013 04/16/2014 Hypertension in , antepartum 09/19/2013 01/08/2014 DVT prophylaxis 12/25/2012 09/04/2013 Overview: IPCs DISPOSITION AND FOLLOW-UP 12/25/20122013 Overview: Full code Retinal detachment 10/26/2012 12/25/2012 documented as of this encounter (statuses as of 06/16/2022) [facility] History of Past illness Narrative* Problem Noted [...] 02/25/2014 morning - On fentanyl gtt per ANTHROPOLOGICAL LINGUIST Plan: - ANTHROPOLOGICAL LINGUIST team to round on patient and manage [...] arise --- Follows with Dr. Garcia at [facility] Plan: - Continuous monitoring - F/u ANTHROPOLOGICAL LINGUIST recs GBS (group B Streptococcus carrier), +RV culture @ 22 wks 11/11/2013 04/16/2014 Hypertension in , antepartum 09/19/2013 01/08/2014 DVT prophylaxis 12/25/2012 09/04/2013 Overview: IPCs DISPOSITION AND FOLLOW-UP 12/25/20122013 Overview: Full code Retinal detachment 10/26/2012 12/25/2012 documented as of this encounter (statuses as of 07/12/2022) [facility] History of Past illness Narrative* Problem Noted [...] 02/25/2014 morning - On fentanyl gtt per ANTHROPOLOGICAL LINGUIST Plan: - ANTHROPOLOGICAL LINGUIST team to round on patient and manage [...] arise --- Follows with Dr. Garcia at [facility] Plan: - Continuous monitoring - F/u ANTHROPOLOGICAL LINGUIST recs GBS (group B Streptococcus carrier), +RV culture @ 22 wks 11/11/2013 04/16/2014 Hypertension in , antepartum 09/19/2013 01/08/2014 DVT prophylaxis 12/25/2012 09/04/2013 Overview: IPCs DISPOSITION AND FOLLOW-UP 12/25/20122013 Overview: Full code Retinal detachment 10/26/2012 12/25/2012 documented as of this encounter (statuses as of 07/25/2022) [facility] History of Past illness Narrative* Problem Noted [...] 02/25/2014 morning - On fentanyl gtt per ANTHROPOLOGICAL LINGUIST Plan: - ANTHROPOLOGICAL LINGUIST team to round on patient and manage [...] arise --- Follows with Dr. Garcia at [facility] Plan: - Continuous monitoring - F/u ANTHROPOLOGICAL LINGUIST recs GBS (group B Streptococcus carrier), +RV culture @ 22 wks 11/11/2013 04/16/2014 Hypertension in , antepartum 09/19/2013 01/08/2014 DVT prophylaxis 12/25/2012 09/04/2013 Overview: IPCs DISPOSITION AND FOLLOW-UP 12/25/20122013 Overview: Full code Retinal detachment 10/26/2012 12/25/2012 documented as of this encounter (statuses as of 08/05/2022) [facility] History of Past illness Narrative* Problem Noted [...] 02/25/2014 morning - On fentanyl gtt per ANTHROPOLOGICAL LINGUIST Plan: - ANTHROPOLOGICAL LINGUIST team to round on patient and manage [...] arise --- Follows with Dr. Garcia at [facility] Plan: - Continuous monitoring - F/u ANTHROPOLOGICAL LINGUIST recs GBS (group B Streptococcus carrier), +RV culture @ 22 wks 11/11/2013 04/16/2014 Hypertension in , antepartum 09/19/2013 01/08/2014 DVT prophylaxis 12/25/2012 09/04/2013 Overview: IPCs DISPOSITION AND FOLLOW-UP 12/25/20122013 Overview: Full code Retinal detachment 10/26/2012 12/25/2012 documented as of this encounter (statuses as of 08/16/2022) [facility] History of Past illness Narrative* Problem Noted [...] 02/25/2014 morning - On fentanyl gtt per ANTHROPOLOGICAL LINGUIST Plan: - ANTHROPOLOGICAL LINGUIST team to round on patient and manage [...] arise --- Follows with Dr. Garcia at [facility] Plan: - Continuous monitoring - F/u ANTHROPOLOGICAL LINGUIST recs GBS (group B Streptococcus carrier), +RV culture @ 22 wks 11/11/2013 04/16/2014 Hypertension in , antepartum 09/19/2013 01/08/2014 DVT prophylaxis 12/25/2012 09/04/2013 Overview: IPCs DISPOSITION AND FOLLOW-UP 12/25/20122013 Overview: Full code Retinal detachment 10/26/2012 12/25/2012 documented as of this encounter (statuses as of 09/02/2022) [facility] History of Past illness Narrative* Problem Noted [...] 02/25/2014 morning - On fentanyl gtt per ANTHROPOLOGICAL LINGUIST Plan: - ANTHROPOLOGICAL LINGUIST team to round on patient and manage [...] arise --- Follows with Dr. Garcia at [facility] Plan: - Continuous monitoring - F/u ANTHROPOLOGICAL LINGUIST recs GBS (group B Streptococcus carrier), +RV culture @ 22 wks 11/11/2013 04/16/2014 Hypertension in , antepartum 09/19/2013 01/08/2014 DVT prophylaxis 12/25/2012 09/04/2013 Overview: IPCs DISPOSITION AND FOLLOW-UP 12/25/20122013 Overview: Full code Retinal detachment 10/26/2012 12/25/2012 documented as of this encounter (statuses as of 09/07/2022) [facility] History of Past illness Narrative* Problem Noted [...] 02/25/2014 morning - On fentanyl gtt per ANTHROPOLOGICAL LINGUIST Plan: - ANTHROPOLOGICAL LINGUIST team to round on patient and manage [...] arise --- Follows with Dr. Garcia at [facility] Plan: - Continuous monitoring - F/u ANTHROPOLOGICAL LINGUIST recs GBS (group B Streptococcus carrier), +RV culture @ 22 wks 11/11/2013 04/16/2014 Hypertension in , antepartum 09/19/2013 01/08/2014 DVT prophylaxis 12/25/2012 09/04/2013 Overview: IPCs DISPOSITION AND FOLLOW-UP 12/25/20122013 Overview: Full code Retinal detachment 10/26/2012 12/25/2012 documented as of this encounter (statuses as of 09/20/2022) [facility] History of Past illness Narrative* Problem Noted [...] 02/25/2014 morning - On fentanyl gtt per ANTHROPOLOGICAL LINGUIST Plan: - ANTHROPOLOGICAL LINGUIST team to round on patient and manage [...] arise --- Follows with Dr. Garcia at [facility] Plan: - Continuous monitoring - F/u ANTHROPOLOGICAL LINGUIST recs GBS (group B Streptococcus carrier), +RV culture @ 22 wks 11/11/2013 04/16/2014 Hypertension in , antepartum 09/19/2013 01/08/2014 DVT prophylaxis 12/25/2012 09/04/2013 Overview: IPCs DISPOSITION AND FOLLOW-UP 12/25/20122013 Overview: Full code Retinal detachment 10/26/2012 12/25/2012 documented as of this encounter (statuses as of 10/22/2022) [facility] History of Past illness Narrative* Problem Noted [...] 02/25/2014 morning - On fentanyl gtt per ANTHROPOLOGICAL LINGUIST Plan: - ANTHROPOLOGICAL LINGUIST team to round on patient and manage [...] arise --- Follows with Dr. Garcia at [facility] Plan: - Continuous monitoring - F/u ANTHROPOLOGICAL LINGUIST recs GBS (group B Streptococcus carrier), +RV culture @ 22 wks 11/11/2013 04/16/2014 Hypertension in , antepartum 09/19/2013 01/08/2014 DVT prophylaxis 12/25/2012 09/04/2013 Overview: IPCs DISPOSITION AND FOLLOW-UP 12/25/20122013 Overview: Full code Retinal detachment 10/26/2012 12/25/2012 documented as of this encounter (statuses as of 11/03/2022) [facility] History of Past illness Narrative* Problem Noted [...] 02/25/2014 morning - On fentanyl gtt per ANTHROPOLOGICAL LINGUIST Plan: - ANTHROPOLOGICAL LINGUIST team to round on patient and manage [...] arise --- Follows with Dr. Garcia at [facility] Plan: - Continuous monitoring - F/u ANTHROPOLOGICAL LINGUIST recs GBS (group B Streptococcus carrier), +RV culture @ 22 wks 11/11/2013 04/16/2014 Hypertension in , antepartum 09/19/2013 01/08/2014 DVT prophylaxis 12/25/2012 09/04/2013 Overview: IPCs DISPOSITION AND FOLLOW-UP 12/25/20122013 Overview: Full code Retinal detachment 10/26/2012 12/25/2012 documented as of this encounter (statuses as of 11/07/2022) [facility] History of Past illness Narrative* Problem Noted [...] 02/25/2014 morning - On fentanyl gtt per ANTHROPOLOGICAL LINGUIST Plan: - ANTHROPOLOGICAL LINGUIST team to round on patient and manage care Diabetic ketoacidosis withou t coma associated with type 1 diabetes mellitus 01/08/2014 02/04/2023 Overview: Type 1 diabetes with poor control, frequent DKA episodes --- Throughout the day she takes insulin to keep sugars 80-150 - Presented to [facility] on 01/08/2014 with sub-sternal chest pain in [...] arise --- Follows with Dr. Garcia at [facility] Plan: - Continuous monitoring - F/u ANTHROPOLOGICAL LINGUIST recs GBS (group B Streptococcus carrier), +RV culture @ 22 wks 11/11/2013 04/16/2014 Hypertension in , antepartum 09/19/2013 01/08/2014 DVT prophylaxis 12/25/2012 09/04/2013 Overview: IPCs DISPOSITION AND FOLLOW-UP 12/25/20122013 Overview: Full code Retinal detachment 10/26/2012 12/25/2012 documented as of this encounter (statuses as of 02/08/2023) [facility] History of Past illness Narrative* Problem Noted [...] 02/25/2014 morning - On fentanyl gtt per ANTHROPOLOGICAL LINGUIST Plan: - ANTHROPOLOGICAL LINGUIST team to round on patient and manage care Diabetic ketoacidosis withou t coma associated with type 1 diabetes mellitus 01/08/2014 02/04/2023 Overview: Type 1 diabetes with poor control, frequent DKA episodes --- Throughout the day she takes insulin to keep sugars 80-150 - Presented to [facility] on 01/08/2014 with sub-sternal chest pain in [...] arise --- Follows with Dr. Garcia at [facility] Plan: - Continuous monitoring - F/u ANTHROPOLOGICAL LINGUIST recs GBS (group B Streptococcus carrier), +RV culture @ 22 wks 11/11/2013 04/16/2014 Hypertension in , antepartum 09/19/2013 01/08/2014 DVT prophylaxis 12/25/2012 09/04/2013 Overview: IPCs DISPOSITION AND FOLLOW-UP 12/25/20122013 Overview: Full code Retinal detachment 10/26/2012 12/25/2012 documented as of this encounter (statuses as of 02/15/2023) [facility] History of Past illness Narrative* Problem Noted [...] 02/25/2014 morning - On fentanyl gtt per ANTHROPOLOGICAL LINGUIST Plan: - ANTHROPOLOGICAL LINGUIST team to round on patient and manage care Diabetic ketoacidosis withou t coma associated with type 1 diabetes mellitus 01/08/2014 02/04/2023 Overview: Type 1 diabetes with poor control, frequent DKA episodes --- Throughout the day she takes insulin to keep sugars 80-150 - Presented to [facility] on 01/08/2014 with sub-sternal chest pain in [...] arise --- Follows with Dr. Garcia at [facility] Plan: - Continuous monitoring - F/u ANTHROPOLOGICAL LINGUIST recs GBS (group B Streptococcus c arrier), +RV culture @ 22 wks 11/11/2013 04/16/2014 Hypertension in , antepartum 09/19/2013 01/08/2014 DVT prophylaxis 12/25/2012 09/04/2013 Overview: IPCs DISPOSITION AND FOLLOW-UP 12/25/2012 Overview: Full code Retinal detachment 10/26/2012 3 documented as of this encounter (statuses as of 06/02/2023) [facility] History of Past illness Narrative* Problem Noted [...] 02/25/2014 morning - On fentanyl gtt per ANTHROPOLOGICAL LINGUIST Plan: - ANTHROPOLOGICAL LINGUIST team to round on patient and manage care Diabetic ketoacidosis withou t coma associated with type 1 diabetes mellitus 01/08/2014 02/04/2023 Overview: Type 1 diabetes with poor control, frequent DKA episodes --- Throughout the day she takes insulin to keep sugars 80-150 - Presented to [facility] on 01/08/2014 with sub-sternal chest pain in [...] arise --- Follows with Dr. Garcia at [facility] Plan: - Continuous monitoring - F/u ANTHROPOLOGICAL LINGUIST recs GBS (group B Streptococcus c arrier), +RV culture @ 22 wks 11/11/2013 04/16/2014 Hypertension in , antepartum 09/19/2013 01/08/2014 DVT prophylaxis 12/25/2012 09/04/2013 Overview: IPCs DISPOSITION AND FOLLOW-UP 12/25/2012 Overview: Full code Retinal detachment 10/26/2012 3 documented as of this encounter (statuses as of 08/16/2023) [facility] History of Past illness Narrative* Problem Noted [...] 02/25/2014 morning - On fentanyl gtt per ANTHROPOLOGICAL LINGUIST Plan: - ANTHROPOLOGICAL LINGUIST team to round on patient and manage care Diabetic ketoacidosis withou t coma associated with type 1 diabetes mellitus 01/08/2014 02/04/2023 Overview: Type 1 diabetes with poor control, frequent DKA episodes --- Throughout the day she takes insulin to keep sugars 80-150 - Presented to [facility] on 01/08/2014 with sub-sternal chest pain in [...] arise --- Follows with Dr. Garcia at [facility] Plan: - Continuous monitoring - F/u ANTHROPOLOGICAL LINGUIST recs GBS (group B Streptococcus c arrier), +RV culture @ 22 wks 11/11/2013 04/16/2014 Hypertension in , antepartum 09/19/2013 01/08/2014 DVT prophylaxis 12/25/2012 09/04/2013 Overview: IPCs DISPOSITION AND FOLLOW-UP 12/25/2012 Overview: Full code Retinal detachment 10/26/2012 3 documented as of this encounter (statuses as of 09/29/2023) [facility] History of Past illness Narrative* Problem Noted [...] 02/25/2014 morning - On fentanyl gtt per ANTHROPOLOGICAL LINGUIST Plan: - ANTHROPOLOGICAL LINGUIST team to round on patient and manage care Diabetic ketoacidosis withou t coma associated with type 1 diabetes mellitus 01/08/2014 02/04/2023 Overview: Type 1 diabetes with poor control, frequent DKA episodes --- Throughout the day she takes insulin to keep sugars 80-150 - Presented to [facility] on 01/08/2014 with sub-sternal chest pain in [...] arise --- Follows with Dr. Garcia at [facility] Plan: - Continuous monitoring - F/u ANTHROPOLOGICAL LINGUIST recs GBS (group B Streptococcus c arrier), +RV culture @ 22 wks 11/11/2013 04/16/2014 Hypertension in , antepartum 09/19/2013 01/08/2014 DVT prophylaxis 12/25/2012 09/04/2013 Overview: IPCs DISPOSITION AND FOLLOW-UP 12/25/2012 Overview: Full code Retinal detachment 10/26/2012 3 documented as of this encounter (statuses as of 09/29/2023) [facility] History of Past illness Narrative* Problem Noted [...] 02/25/2014 morning - On fentanyl gtt per ANTHROPOLOGICAL LINGUIST Plan: - ANTHROPOLOGICAL LINGUIST team to round on patient and manage care Diabetic ketoacidosis withou t coma associated with type 1 diabetes mellitus 01/08/2014 02/04/2023 Overview: Type 1 diabetes with poor control, frequent DKA episodes --- Throughout the day she takes insulin to keep sugars 80-150 - Presented to [facility] on 01/08/2014 with sub-sternal chest pain in [...] arise --- Follows with Dr. Garcia at [facility] Plan: - Continuous monitoring - F/u ANTHROPOLOGICAL LINGUIST recs GBS (group B Streptococcus c arrier), +RV culture @ 22 wks 11/11/2013 04/16/2014 Hypertension in , antepartum 09/19/2013 01/08/2014 DVT prophylaxis 12/25/2012 09/04/2013 Overview: IPCs DISPOSITION AND FOLLOW-UP 12/25/2012 Overview: Full code Retinal detachment 10/26/2012 3 documented as of this encounter (statuses as of 10/04/2023) [facility] History of Past illness Narrative* Problem Noted [...] 02/25/2014 morning - On fentanyl gtt per ANTHROPOLOGICAL LINGUIST Plan: - ANTHROPOLOGICAL LINGUIST team to round on patient and manage care Diabetic ketoacidosis withou t coma associated with type 1 diabetes mellitus 01/08/2014 02/04/2023 Overview: Type 1 diabetes with poor control, frequent DKA episodes --- Throughout the day she takes insulin to keep sugars 80-150 - Presented to [facility] on 01/08/2014 with sub-sternal chest pain in [...] arise --- Follows with Dr. Garcia at [facility] Plan: - Continuous monitoring - F/u ANTHROPOLOGICAL LINGUIST recs GBS (group B Streptococcus c arrier), +RV culture @ 22 wks 11/11/2013 04/16/2014 Hypertension in , antepartum 09/19/2013 01/08/2014 DVT prophylaxis 12/25/2012 09/04/2013 Overview: IPCs DISPOSITION AND FOLLOW-UP 12/25/2012 Overview: Full code Retinal detachment 10/26/2012 3 documented as of this encounter (statuses as of 10/12/2023) [facility] History of Past illness Narrative* Problem Noted [...] 02/25/2014 morning - On fentanyl gtt per ANTHROPOLOGICAL LINGUIST Plan: - ANTHROPOLOGICAL LINGUIST team to round on patient and manage care Diabetic ketoacidosis withou t coma associated with type 1 diabetes mellitus 01/08/2014 02/04/2023 Overview: Type 1 diabetes with poor control, frequent DKA episodes --- Throughout the day she takes insulin to keep sugars 80-150 - Presented to [facility] on 01/08/2014 with sub-sternal chest pain in [...] arise --- Follows with Dr. Garcia at [facility] Plan: - Continuous monitoring - F/u ANTHROPOLOGICAL LINGUIST recs GBS (group B Streptococcus c arrier), +RV culture @ 22 wks 11/11/2013 04/16/2014 Hypertension in , antepartum 09/19/2013 01/08/2014 DVT prophylaxis 12/25/2012 09/04/2013 Overview: IPCs DISPOSITION AND FOLLOW-UP 12/25/2012 Overview: Full code Retinal detachment 10/26/2012 3 documented as of this encounter (statuses as of 10/19/2023) [facility] History of Past illness Narrative* Problem Noted [...] 02/25/2014 morning - On fentanyl gtt per ANTHROPOLOGICAL LINGUIST Plan: - ANTHROPOLOGICAL LINGUIST team to round on patient and manage care Diabetic ketoacidosis withou t coma associated with type 1 diabetes mellitus 01/08/2014 02/04/2023 Overview: Type 1 diabetes with poor control, frequent DKA episodes --- Throughout the day she takes insulin to keep sugars 80-150 - Presented to [facility] on 01/08/2014 with sub-sternal chest pain in [...] arise --- Follows with Dr. Garcia at [facility] Plan: - Continuous monitoring - F/u ANTHROPOLOGICAL LINGUIST recs GBS (group B Streptococcus c arrier), +RV culture @ 22 wks 11/11/2013 04/16/2014 Hypertension in , antepartum 09/19/2013 01/08/2014 DVT prophylaxis 12/25/2012 09/04/2013 Overview: IPCs DISPOSITION AND FOLLOW-UP 12/25/2012 Overview: Full code Retinal detachment 10/26/2012 3 documented as of this encounter (statuses as of 10/20/2023) [facility] History of Past illness Narrative* Problem Noted [...] 02/25/2014 morning - On fentanyl gtt per ANTHROPOLOGICAL LINGUIST Plan: - ANTHROPOLOGICAL LINGUIST team to round on patient and manage care Diabetic ketoacidosis withou t coma associated with type 1 diabetes mellitus 01/08/2014 02/04/2023 Overview: Type 1 diabetes with poor control, frequent DKA episodes --- Throughout the day she takes insulin to keep sugars 80-150 - Presented to [facility] on 01/08/2014 with sub-sternal chest pain in [...] arise --- Follows with Dr. Garcia at [facility] Plan: - Continuous monitoring - F/u ANTHROPOLOGICAL LINGUIST recs GBS (group B Streptococcus c arrier), +RV culture @ 22 wks 11/11/2013 04/16/2014 Hypertension in , antepartum 09/19/2013 01/08/2014 DVT prophylaxis 12/25/2012 09/04/2013 Overview: IPCs DISPOSITION AND FOLLOW-UP 12/25/2012 Overview: Full code Retinal detachment 10/26/2012 3 documented as of this encounter (statuses as of 10/27/2023) [facility] History of Past illness Narrative* Problem Noted [...] 02/25/2014 morning - On fentanyl gtt per ANTHROPOLOGICAL LINGUIST Plan: - ANTHROPOLOGICAL LINGUIST team to round on patient and manage care Diabetic ketoacidosis withou t coma associated with type 1 diabetes mellitus 01/08/2014 02/04/2023 Overview: Type 1 diabetes with poor control, frequent DKA episodes --- Throughout the day she takes insulin to keep sugars 80-150 - Presented to [facility] on 01/08/2014 with sub-sternal chest pain in [...] arise --- Follows with Dr. Garcia at [facility] Plan: - Continuous monitoring - F/u ANTHROPOLOGICAL LINGUIST recs GBS (group B Streptococcus c arrier), +RV culture @ 22 wks 11/11/2013 04/16/2014 Hypertension in , antepartum 09/19/2013 01/08/2014 DVT prophylaxis 12/25/2012 09/04/2013 Overview: IPCs DISPOSITION AND FOLLOW-UP 12/25/2012 Overview: Full code Retinal detachment 10/26/2012 3 documented as of this encounter (statuses as of 11/03/2023) [facility] History of Past illness Narrative* Problem Noted [...] 02/25/2014 morning - On fentanyl gtt per ANTHROPOLOGICAL LINGUIST Plan: - ANTHROPOLOGICAL LINGUIST team to round on patient and manage care Diabetic ketoacidosis withou t coma associated with type 1 diabetes mellitus 01/08/2014 02/04/2023 Overview: Type 1 diabetes with poor control, frequent DKA episodes --- Throughout the day she takes insulin to keep sugars 80-150 - Presented to [facility] on 01/08/2014 with sub-sternal chest pain in [...] arise --- Follows with Dr. Garcia at [facility] Plan: - Continuous monitoring - F/u ANTHROPOLOGICAL LINGUIST recs GBS (group B Streptococcus c arrier), +RV culture @ 22 wks 11/11/2013 04/16/2014 Hypertension in , antepartum 09/19/2013 01/08/2014 DVT prophylaxis 12/25/2012 09/04/2013 Overview: IPCs DISPOSITION AND FOLLOW-UP 12/25/2012 Overview: Full code Retinal detachment 10/26/2012 3 documented as of this encounter (statuses as of 11/10/2023) [facility] History of Past illness Narrative* Problem Noted [...] 02/25/2014 morning - On fentanyl gtt per ANTHROPOLOGICAL LINGUIST Plan: - ANTHROPOLOGICAL LINGUIST team to round on patient and manage care Diabetic ketoacidosis withou t coma associated with type 1 diabetes mellitus 01/08/2014 02/04/2023 Overview: Type 1 diabetes with poor control, frequent DKA episodes --- Throughout the day she takes insulin to keep sugars 80-150 - Presented to [facility] on 01/08/2014 with sub-sternal chest pain in [...] arise --- Follows with Dr. Garcia at [facility] Plan: - Continuous monitoring - F/u ANTHROPOLOGICAL LINGUIST recs GBS (group B Streptococcus c arrier), +RV culture @ 22 wks 11/11/2013 04/16/2014 Hypertension in , antepartum 09/19/2013 01/08/2014 DVT prophylaxis 12/25/2012 09/04/2013 Overview: IPCs DISPOSITION AND FOLLOW-UP 12/25/2012 Overview: Full code Retinal detachment 10/26/2012 3 documented as of this encounter (statuses as of 12/14/2023) [facility] History of Past illness Narrative* Problem Noted [...] 02/25/2014 morning - On fentanyl gtt per ANTHROPOLOGICAL LINGUIST Plan: - ANTHROPOLOGICAL LINGUIST team to round on patient and manage care Diabetic ketoacidosis withou t coma associated with type 1 diabetes mellitus 01/08/2014 02/04/2023 Overview: Type 1 diabetes with poor control, frequent DKA episodes --- Throughout the day she takes insulin to keep sugars 80-150 - Presented to [facility] on 01/08/2014 with sub-sternal chest pain in [...] arise --- Follows with Dr. Garcia at [facility] Plan: - Continuous monitoring - F/u ANTHROPOLOGICAL LINGUIST recs GBS (group B Streptococcus c arrier), +RV culture @ 22 wks 11/11/2013 04/16/2014 Hypertension in , antepartum 09/19/2013 01/08/2014 DVT prophylaxis 12/25/2012 09/04/2013 Overview: IPCs DISPOSITION AND FOLLOW-UP 12/25/2012 Overview: Full code Retinal detachment 10/26/2012 3 documented as of this encounter (statuses as of 12/15/2023) [facility] Author Cynthia Hutchison [facility] October 18, 2023 11:21am Note Date/Time October 18, 2023 11:21am [facility] Medical Records Department [address] [place] [address] Counseling Note - Pharmacy 10/18/23 1121 MR#: [id number] Acct: [id number] Name: KATHLEEN VILLA Rep #:[id number] : 1995 28 From: Cynthia Hutchison PCP: FUNMILAYO SMITH Status:ADM IN Y Location: ICU CVICU 2-1 Pharmacy [place] Med Reconciliation Pharmacy Service has performed discharge medication reconciliation for this patient. The patient's discharge medication list was reviewed for discrepancies and discrepancies were resolved. Medications at Discharge Home Medications insulin lispro 100 unit/mL subcutaneous solution (Humalog U-100 Insulin) See Rx Instructions .Route .COMPLEX 04/27/23 pen needle, diabetic 29 gauge x 1/2 (Ultra-Thin II Insulin Pen [place]) #100 ea08/10/23 prochlorperazine maleate 10 mg tablet (Compazine) 10 mg PO TID PRN nausea and vomiting #20 tabs 09/25/23 10/18/23 1121 <Electronically signed by Cynthia Hutchison> Date _ Cynthia Hutchison Cosigner Signature (if applicable): Date CC: ~ Signed [facility] Work Phone: Discharge summary Author Ileana Lobo [facility] April 29, 2023 5:54pm Note Date/Time April 29, 2023 5:45pm [facility] Medical Records Department [address] [place] [address] Instructions for Home/Discharge Instructions 04/29/23 1744 MR#: [id number] Acct: [id number] Name: KATHLEEN VILLA Rep #:[id number] : [...] Order can be placed): Home, Self Care 04/29/234<Electronically signed by Ileana Lobo MD>Ileana Lobo MD CC: Dr. David Smith MD; No Primary Care Physician ~ Signed [facility] Work Phone: Discharge summary Author Alexandro Garces [facility] October 17, 2023 11:38am Note Date/Time October 17, 2023 11:24am [facility] Medical Records Department [address] [place] [address] Emergency Department Summary 10/17/23 MR#: [id number] Acct: [id number] Name: KATHLEEN VILLA Rep #:[id number] : [...] Alvarez RN - Last Filed: 10/17/23 11:31> [facility] Medical History Anxiety Borderline personality [...] gauge x 1/2 (Ultra-Thin II Insulin Pen [place]) #100 ea08/10/23 [Rx Last Taken Unknown] ibuprofen [...] Alvarez RN - Last Filed: 10/17/23 11:31> [facility] MDM Narrative Medical decision making narrative: Patient placed on school lunch monitor. IV line initiated. Labwork obtained to [...] 88.4 H Lymph % (Auto) 7.8 L [place] % (Auto) 2.4 Eos % (Auto) 0.1 [...] Garces MD - Last Filed: 10/17/23 11:38> [facility] MDM Narrative Medical decision making narrative: Patient placed on school lunch monitor. IV line initiated. Labwork obtained to evaluate for leukocytosis, anemia, and electrolyte derangement. Normal saline ordered due to vomiting. Reglan ordered due to vomiting. I have personally performed a face to face assessment of the patient and have reviewed the ASLHY Note. I performed a substantive portion of [...] 88.4 H Lymph % (Auto) 7.8 L [place] % (Auto) 2.4 Eos % (Auto) 0.1 [...] minutes, Including time spent:, Discussing w/Patient &/or Family/Music Pastor, Discussing w/Consultants, Arranging Admission or Transfer, Performing Direct Patient Care at Bedside and - (35 minutes) Discharge Plan Dx/Rx/DC Orders Clinical Impression: DKA (diabetic ketoacidosis), Tachycardia, Nausea & vomiting, Acute dehydration Disposition Disposition: Acute Care [facility] What to do if you have Problems For any increased pain, shortness of breath, bleeding, nausea or vomiting, chest pain, or any unexpected problems, contact your Primary Care Provider. Call [facility] ([phone]) or report to the closest Emergency Room. Call 911 if necessary. 10/17/23 1138 <Electronically signed by Alexandro Garces MD> Cosigner Signature (if applicable): 10/17/23 1131 <Electronically signed by Jacqueline Alvarez RN> CC: FUNMILAYO SMITH ~ Signed [facility] Work Phone: Discharge summary Author Vita Jefferson [facility] October 18, 2023 10:54am Note Date/Time October 18, 2023 10:54am [facility] Medical Records Department [address] [place] [address] Instructions for Home/Discharge Instructions 10/18/23 1054 MR#: [id number] Acct: [id number] Name: KATHLEEN VILLA Rep #:[id number] : [...] Instructions / Restrictions: follow up with your physical therapy attendant and customer support manager SIRI. Discharge Orders/Prescriptions Prescriptions: Continued insulin lispro [...] pen needle, diabetic [Ultra-Thin II Ins Pen [place]] 29 gauge x 1/2 needle See Rx [...] Jefferson MD CC: FUNMILAYO SMITH ~ Signed [facility] Work Phone: Discharge summary Author [facility] October 18, 2023 11:09am Note Date/Time October 18, 2023 10:58am [facility] Medical Records Department [address] [place] [address] Discharge Summary 10/18/23 1054 MR#: [id number] Acct: [id number] Name: KATHLEEN VILLA Rep #:[id number] : [...] was 6.7. * follows up with an physical therapy attendant in [facility] in [place]. * last A1C from 08/07/2023 was 7 [...] gauge x 1/2 (Ultra-Thin II Insulin Pen [place]) #100 ea08/10/23 prochlorperazine maleate 10 mg tablet [...] per patient, her last A1C with her physical therapy attendant was 6.7. She had however had recurrent [...] to follow up with her PCP and physical therapy attendant as well as customer support manager o/a of gastroparesis. Patient seen and examined [...] % (Auto) 59.5, Lymph % (Auto) 32.5, [place] % (Auto) 6.0, Eos % (Auto) 1.0, [...] Instructions / Restrictions: follow up with your physical therapy attendant and customer support manager SIRI. Discharge Orders/Prescriptions Prescriptions: Continued insulin lispro [...] pen needle, diabetic [Ultra-Thin II Ins Pen [place]] 29 gauge x 1/2 needle See Rx [...] Self Care Charges/Coding Visit Charges Inpatient E&M: 08314 Disch Hosp >30min 10/18/23 1109 <Electronically signed by Vita Jefferson MD> Cosigner Signature (if applicable): CC: Dr. Vita Jefferson MD; FUNMILAYO SMITH~ Signed [facility] Work Phone: Evaluation note* Diagnosis Type 1 diabetes mellitus with other specified complication (HCC)- Primary [facility] Diagnosis Obstruction of central line, initial encounter (HCC)- Primary [facility] Diagnosis Type 1 diabetes mellitus with other specified complication (HCC)- Primary [facility]* Diagnosis Menstrual irregularity- Primary Irregular menstrual cycle Screening for STD (sexually transmitted disease) Screening examination for venereal disease Chronic nausea Nausea alone [facility] Diagnosis 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) documented in this encounter [facility] note* Diagnosis Chronic idiopathic constipation Unspecified constipation [facility]* Diagnosis Gonorrhea- Primary Gonococcal infection (acute) of lower genitourinary tract documented in this encounter [facility] note* Diagnosis Gonorrhea- Primary Gonococcal infection (acute) of lower genitourinary tract [facility] Diagnosis Gonorrhea- Primary Gonococcal infection (acute) of lower genitourinary tract Screen for sexually transmitted diseases Screening examination for venereal disease [facility]* Diagnosis Type 1 diabetes mellitus with hyperglycemia (HCC)- Primary Type I (juvenile type) diabetes mellitus without mention of complication, not stated as uncontrolled Insulin pump status Abnormal results of thyroid function studies Nonspecific abnormal results of thyroid function study documented in this encounter [facility] note* Diagnosis Type 1 diabetes mellitus with hyperglycemia, with long-term current use of insulin ([facility])- Primary Insulin pump status [facility]* Diagnosis Type 1 diabetes mellitus with other specified complication (HCC)- Primary documented in this encounter [facility] note* Diagnosis Lower abdominal pain- Primary Abdominal pain, other specified site documented in this encounter [facility] note* Diagnosis Viral conjunctivitis- Primary Unspecified diseases of conjunctiva due to viruses documented in this encounter [facility] note* Diagnosis Gastroparesis due to [...] Abdominal pain, generalized documented in this encounter [facility] note* Diagnosis Gastroparesis due to DM (HCC)- Primary Type II or unspecified type diabetes mellitus with neurological manifestations, not stated as uncontrolled Generalized abdominal pain Abdominal pain, generalized documented in this encounter [facility] note* Diagnosis Left flank pain- Primary Abdominal pain, unspecified site [facility] Diagnosis Left flank pain- Primary Abdominal pain, unspecified site Dysuria documented in this encounter [facility] note* Diagnosis Type 1 diabetes mellitus with hyperglycemia, with long-term current use of insulin ([facility])- Primary Insulin pump status Screening for diabetic retinopathy Screening for other eye conditions documented in this encounter [facility] note* Diagnosis Nausea & vomiting- Primary Nausea with vomiting Hyperglycemia Other abnormal glucose Ketonuria Acetonuria Nausea and vomiting, unspecified vomiting type Abdominal pain, unspecified abdominal location Chest pain, unspecified type Bradycardia Other specified cardiac dysrhythmias documented in this encounter [facility] noteNo assessment information [facility]: [facility]* Diagnosis Onset Date Resolution Status Intractable vomiting acute [facility] Work Phone: Evaluation note* Diagnosis Psoriasis vulgaris- Primary Other psoriasis documented in this encounter [facility] note* Diagnosis Type 1 diabetes mellitus with hyperglycemia, with long-term current use of insulin ([facility])- Primary Insulin pump status documented in this encounter [facility] note* Diagnosis Onset Date Resolution Status Diabetic gastroparesis acute DKA (diabetic ketoacidoses) acute Enterocolitis acute Intractable nausea and vomiting acute Nausea & vomiting acute Type 1 diabetes acute [facility] Work Phone: Evaluation note* Diagnosis Onset Date Resolution Status DKA (diabetic ketoacidoses) resolved Intractable nausea and vomiting resolved Nausea & vomiting resolved [facility] Work Phone: evaluation note* Diagnosis Onset Date Resolution Status DKA (diabetic ketoacidoses) resolved Intractable nausea and vomiting resolved Nausea & vomiting resolved Acute dehydration acute DKA (diabetic ketoacidosis) acute Nausea & vomiting acute Tachycardia acute [facility] Work Phone: Evaluation note* Diagnosis Psoriasis vulgaris- Primary Other psoriasis Multiple benign nevi documented in this encounter [facility] note* Diagnosis Onset Date Resolution Status DKA (diabetic ketoacidoses) resolved Intractable nausea and vomiting resolved Nausea & vomiting resolved Acute dehydration resolved DKA (diabetic ketoacidosis) resolved Nausea & vomiting resolved Tachycardia resolved [facility] Work Phone: Evaluation note* Diagnosis Type 1 diabetes mellitus with hyperglycemia, with long-term current use of insulin ([facility])- Primary Insulin pump status documented in this encounter [facility] note* Diagnosis Type 1 diabetes mellitus with hyperglycemia, with long-term current use of insulin (HCC) Insulin pump status [facility]* Diagnosis Type 1 diabetes mellitus with hyperglycemia, with long-term current use of insulin (HCC)- Primary Insulin pump status [facility]* Diagnosis Type 1 diabetes mellitus with hyperglycemia, with long-term current use of insulin ([facility]) [facility]* Diagnosis Obstructive sleep apnea- Primary Obstructive sleep apnea (adult) (pediatric) Dyspnea Other dyspnea and respiratory abnormality Type 1 diabetes mellitus with hyperglycemia, with long-term current use of insulin (HCC) Insulin pump status [facility]* Diagnosis Obstructive sleep apnea- Primary Obstructive sleep apnea (adult) (pediatric) Dyspnea Other dyspnea and respiratory abnormality Diabetes mellitus type 1, controlled, without complications (HCC)- Primary Type I (juvenile type) diabetes mellitus without mention of complication, not stated as uncontrolled [facility]* Diagnosis [...] for venereal disease documented [facility]* Diagnosis Obstructive sleep apnea- Primary Obstructive sleep apnea (adult) (pediatric) Dyspnea Other dyspnea and respiratory abnormality Type 1 diabetes mellitus with hyperglycemia, with long-term current use of insulin ([facility])- Primary Insulin pump status [facility]* Diagnosis Obstructive sleep apnea- Primary Obstructive sleep apnea (adult) (pediatric) Dyspnea Other dyspnea and respiratory abnormality Type 1 diabetes mellitus with hyperglycemia, with long-term current use of insulin ([facility]) Insulin pump status [facility]* Diagnosis Psoriasis vulgaris- Primary Other psoriasis Folliculitis Other specified disease of hair and hair follicles Encounter for long-term current use of high risk medication Screening for viral disease Special screening examination for unspecified viral disease documented in this encounter [facility] note* Diagnosis Obstructive sleep apnea- Primary Obstructive sleep apnea (adult) (pediatric) Dyspnea Other dyspnea and respiratory abnormality Chronic idiopathic constipation- Primary Unspecified constipation Gastroparesis documented [facility]* Diagnosis Obstructive sleep apnea- Primary Obstructive sleep apnea (adult) (pediatric) Dyspnea Other dyspnea and respiratory abnormality Chronic idiopathic constipation- Primary Unspecified constipation Abdominal pain, suprapubic Abdominal pain, other specified site Chronic idiopathic constipation Unspecified constipation [facility] this [facility]* Diagnosis Obstructive sleep apnea- Primary Obstructive sleep apnea (adult) (pediatric) Dyspnea Other dyspnea and respiratory abnormality Chronic idiopathic constipation Unspecified constipation [facility]* Diagnosis [...] of other medications documented in this encounter [facility] course Narrative No data available for this section [facility] Discharge instructions No data available for this section [facility] Discharge instructions* Attachments The following attachments cannot be sent through Care Everywhere. * Gastroparesis ([place]) [facility] Additional Instructions Please follow-up with your diabetes doctor Please keep a close eye on your blood sugar and adjust your pump accordingly. Please try to drink plenty of fluids today.[facility] Work Phone: Hospital Discharge instructions Additional Instructions You have influenza B. You should start to feel better later in the week. You need to maintain hydration, keep a close eye on your sugars. You need to eat and drink, do not get behind and get dehydrated. Use ibuprofen and Tylenol. Use your albuterol inhaler.[facility] Work Phone: Progress note No data available for this section [facility] Reason for visit Narrative* Diagnostic Procedure Only (Routine) - Closed Specialty Diagnoses / Procedures Referred By Contac t Referred To Contact XR IMAGING Diagnoses Chronic idiopathic constipation Procedures XR ABDOMEN 1V SUPINE RADIOLOGIC EXAM ABDOMEN 1 VIEW Leticia Hylton DO [address] [place] [address] Phone: tel: fax: [place] [phone] Referral ID Status Reason Start Date Expiration Date V isits Requested Visits Authorized [id number] Closed Auto-Generate d Referral 11/11/2024 12/11/2025 1 1 [facility] Summary Purpose Family History No Family History Records FoundNo Family History Records FoundNo Family History Records FoundNo Family History Records FoundNo Family History Records FoundNo Family History Records FoundNo Family History Records FoundNo Family History Records FoundNo Family History Records FoundNo Family History Records Found Advance Directives No Advanced Directives Records FoundDocuments on File Type Date Recorded 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 Advance Directive(s) Advance Directive(s) 01/02/2020 3:16 PM Advance Directive(s) 01/20/2016 9:39 AM Advance Directive(s) 11/13/2015 8:50 AM Advance Directive(s) 02/27/2014 5:42 PM Advance Directive(s) 01/09/2014 8:55 PM Advance Directive(s) 12/25/2012 9:16 PM Documents on File Type Date Recorded 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 Advance Directive(s) 02/27/2014 5:42 PM Advance Directive(s) 01/09/2014 8:55 PM Advance Directive(s) 12/25/2012 9:16 PM Documents on File Type Date Recorded 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 Advance Directive(s) 02/27/2014 5:42 PM [...] No April 26 3 9:30pm Power of Cafeteria Aide No April 26, 2 023 9:30pm Advance Directive Response Recorded Date/ Time Living Will No April 27 3 9:26am Power of Cafeteria Aide No April 27, 2 023 9:26am Advance Directive Response Recorded Date/ Time Living Will No April 27 3 5:02pm Power of Cafeteria Aide No April 27, 2 023 5:02pm Advance Directive Response Recorded Date/ Time Living Will No May 03 2 023 4:27am Power of Cafeteria Aide No May 03, 2023 4:27am Latest Code [...] Will No June 25 9:47am Power of Cafeteria Aide No June 25, 2023 9:47am Advance Directive Response Recorded Date/ Time Living Will No June 25 11:14pm Power of Cafeteria Aide No June 25, 2023 11:14pm Advance Directive Response Recorded Date/ Time Living Will No August 06, 2 023 8:56am Power of Cafeteria Aide No August 06, 2023 8:56am Advance Directive Response Recorded Date/ Time Living Will No August 06, 023 9:39pm Power of Cafeteria Aide No August 06, 2023 9:39pm Advance Directive Response Recorded Date/ Time Living Will No August 22, 2 023 2:48am Power of Cafeteria Aide No August 22, 2023 2:48am Advance Directive Response Recorded Date/ Time Living Will No September 24 5:58pm Power of Cafeteria Aide No September 24, 2023 5:58pm Advance Directive Response Recorded Date/ Time Living Will No October 17, 2 024 10:02am Power of Cafeteria Aide No October 17, 2023 10:02am Advance Directive Response Recorded Date/ Time Living Will No October 17, 2 024 12:47pm Power of Cafeteria Aide No October 17, 2023 12:47pm Advance Directive Response Recorded Date/ Time Living Will No October 25, 2 024 4:43pm Power of Cafeteria Aide No October 25, 2023 4:43pm Date Activated Date Inactivated Comments 02/01/2023 2:02 AM 02/04/2023 6:35 PM Question Answer Comments Full Code Order Discussed With: Patient Date Activated Date Inactivated Comments 11/23/2022 11:30 PM 11/26/2022 7:43 PM Question Answer Comments Full Code Order Discussed With: Patient Advance Directive Response Recorded Date/ Time Living Will No October 25, 2 024 5:43pm Power of Cafeteria Aide No October 25, 2023 5:43pm Date Activated Date Inactivated Comments 02/01/2023 2:02 AM 02/04/2023 6:35 PM Question Answer Comments Full Code Order Discussed With: Patient Date Activated Date Inactivated Comments 11/23/2022 11:30 PM 11/26/2022 7:43 PM Question Answer Comments Full Code Order Discussed With: Patient Advance Directive Response Recorded Date/ Time Living Will No August 07, 2 023 1:35am Power of Cafeteria Aide No August 07, 2023 1:35am Health Concerns [...] 2 mg, INTRALUMINAL, ONCE, 1 dose, On 03/11/22 at 1200, Refrigerate - Protect From Light [...] DSME/MNT MEDICAL NUTRITION ASSMT&IVNTJ INDIV EACH 15 [place] MEDICAL NUTRITION ASSMT&IVNTJ INDIV EACH 15 [place] MEDICAL NUTRITION ASSMT&IVNTJ INDIV EACH 15 [place] MEDICAL NUTRITION ASSMT&IVNTJ INDIV EACH 15 [place] Jessica Guerrero, PACKING ATTENDANT.TELEGRAPH SERVICE RATER [address] [place] [address] Referral ID Status Reason Start Date Expiration Date Visits Requested Visits Authorized [id number] Authorized PCP Requested Referral 12/13/2023 12/12/2024 1 1 Specialty Diagnoses / Procedures Referred By Contac t Referred To Contact Diagnoses Psoriasis vulgaris Leesa Huddleston PA-C [address] [facility] [address] [place] [address] Referral ID Status Reason Start Date Expiration Date V isits Requested Visits Authorized [id number] Authorized 04/14/2021 05/13/2024 1 1 Specialty Diagnoses / Procedures Referred By Contac t Referred To Contact Ophthalmology Diagnoses Screening for diabetic retinopathy Procedures CONSULT TO OPHTHALMOLOGY OFFICE/[facility]PATIENT [facility] 60-74 MINUTES Autumn Valadez, PACKING ATTENDANT.TELEGRAPH SERVICE RATER [address] [place] [address] Referral ID Status Reason Start Date Expiration Date Visits Requested Visits Authorized [id number] Authorized PCP Requested Referral 01/25/2023 01/25/2024 1 1 Specialty Diagnoses / Procedures Referred By Contac t Referred To Contact Gastroenterology Diagnoses Gastroparesis due to DM (HCC) Generalized abdominal pain Procedures CONSULT TO GASTROENTEROLOGY OFFICE/OUTPATIENT [facility] 60-74 MINUTES Vivi Smith MD [address] [place] [address] Leticia Hylton DO [facility] [address] [place] [address] Referral ID Status Reason Start Date Expiration Date Visits Requested Visits Authorized [id number] Authorized PCP Requested Referral 12/09/2022 12/09/2023 1 1 Specialty Diagnoses / Procedures Referred By Contac t Referred To Contact Pain Management / PAIN MANAGEMENT Diagnoses Gastroparesis due to DM (HCC) Generalized abdominal pain Procedures CONSULT TO PAIN MGT OFFICE/OUTPATIENT [facility] 60-74 MINUTES Vivi Smith MD [address] [place] [address] Elisabet Guzmán, DO [address] [place] [address] Referral ID Status Reason Start Date Expiration Date Visits Requested Visits Authorized [id number] Authorized PCP Requested Referral 12/09/2022 12/09/2023 1 1 Specialty Diagnoses / Procedures Referred By Contac t Referred To Contact Gynecology Diagnoses Menstrual irregularity Procedures CONSULT TO GYNECOLOGY OFFICE/OUT[facility]IENT [facility] 60-74 MINUTES Dashawn Cain, ESTEFANIA.TELEGRAPH SERVICE RATER [address] [place] [address] Referral ID Status Reason Start Date Expiration Date Visits Requested Visits Authorized [id number] Authorized PCP Requested Referral Auto-Generate d Referral [...] section and content) DATE CREATED AUTHOR 02/21/2018 [facility] DATE CREATED AUTHOR AUTHOR'S ORGANIZ ATION 12/28/2021 [facility] DATE CREATED AUTHOR AUTHOR'S ORGANIZ ATION 02/12/2022 [facility] DATE CREATED AUTHOR AUTHOR'S ORGANIZ ATION 03/04/2023 [facility] DATE CREATED AUTHOR AUTHOR'S ORGANIZ ATION 04/20/2023 [facility] DATE CREATED AUTHOR AUTHOR'S ORGANIZ ATION 12/17/2023 [facility] DATE CREATED AUTHOR AUTHOR'S ORGANIZ ATION 11/13/2024 [facility] DATE CREATED AUTHOR AUTHOR'S ORGANIZ ATION 11/15/2024 [facility] DATE CREATED AUTHOR AUTHOR'S ORGANIZ ATION 01/28/2025 [facility] DATE CREATED AUTHOR AUTHOR'S ORGANIZ ATION 05/31/2025 [facility] Source Comments (unrecognize d section and content) In the event this informatio n is protected by the Federal Confidentiality of Alcohol and Drug Abuse Patient Records regulations: The Federal rules restrict any use of the information to criminally investigate or prosecute any alcohol or drug abuse patient.[facility] Rehabilitation[facility] the event this information is protected by the Federal Confidentiality of Alcohol and Drug Abuse Patient Records regulations: The Federal rules restrict any use of the information to criminally investigate or prosecute any alcohol or drug abuse patient.[facility] RehabilitationIn the event this information is protected by the Federal Confidentiality of Alcohol and Drug Abuse Patient Records regulations: The Federal rules restrict any use of the information to criminally investigate or prosecute any alcohol or drug abuse patient.[facility] RehabilitationIn the event this information is protected by the Federal Confidentiality of Alcohol and Drug Abuse Patient Records regulations: The Federal rules restrict any use of the information to criminally investigate or prosecute any alcohol or drug abuse patient.[facility] RehabilitationIn the event this information is protected by the Federal Confidentiality of Alcohol and Drug Abuse Patient Records regulations: The Federal rules restrict any use of the information to criminally investigate or prosecute any alcohol or drug abuse patient.[facility] RehabilitationIn the event this information is protected by the Federal Confidentiality of Alcohol and Drug Abuse Patient Records regulations: The Federal rules restrict any use of the information to criminally investigate or prosecute any alcohol or drug abuse patient.[facility] RehabilitationIn the event this information is protected by the Federal Confidentiality of Alcohol and Drug Abuse Patient Records regulations: The Federal rules restrict any use of the information to criminally investigate or prosecute any alcohol or drug abuse patient.[facility] RehabilitationIn the event this information is protected by the Federal Confidentiality of Alcohol and Drug Abuse Patient Records regulations: The Federal rules restrict any use of the information to criminally investigate or prosecute any alcohol or drug abuse patient.[facility] RehabilitationIn the event this information is protected by the Federal Confidentiality of Alcohol and Drug Abuse Patient Records regulations: The Federal rules restrict any use of the information to criminally investigate or prosecute any alcohol or drug abuse patient.[facility] RehabilitationIn the event this information is protected by the Federal Confidentiality of Alcohol and Drug Abuse Patient Records regulations: The Federal rules restrict any use of the information to criminally investigate or prosecute any alcohol or drug abuse patient.[facility] RehabilitationIn the event this information is protected by the Federal Confidentiality of Alcohol and Drug Abuse Patient Records regulations: The Federal rules restrict any use of the information to criminally investigate or prosecute any alcohol or drug abuse patient.[facility] RehabilitationIn the event this information is protected by the Federal Confidentiality of Alcohol and Drug Abuse Patient Records regulations: The Federal rules restrict any use of the information to criminally investigate or prosecute any alcohol or drug abuse patient.[facility] RehabilitationIn the event this information is protected by the Federal Confidentiality of Alcohol and Drug Abuse Patient Records regulations: The Federal rules restrict any use of the information to criminally investigate or prosecute any alcohol or drug abuse patient.[facility] RehabilitationIn the event this information is protected by the Federal Confidentiality of Alcohol and Drug Abuse Patient Records regulations: The Federal rules restrict any use of the information to criminally investigate or prosecute any alcohol or drug abuse patient.[facility] RehabilitationIn the event this information is protected by the Federal Confidentiality of Alcohol and Drug Abuse Patient Records regulations: The Federal rules restrict any use of the information to criminally investigate or prosecute any alcohol or drug abuse patient.[facility] RehabilitationIn the event this information is protected by the Federal Confidentiality of Alcohol and Drug Abuse Patient Records regulations: The Federal rules restrict any use of the information to criminally investigate or prosecute any alcohol or drug abuse patient.[facility] RehabilitationIn the event this information is protected by the Federal Confidentiality of Alcohol and Drug Abuse Patient Records regulations: The Federal rules restrict any use of the information to criminally investigate or prosecute any alcohol or drug abuse patient.[facility] RehabilitationIn the event this information is protected by the Federal Confidentiality of Alcohol and Drug Abuse Patient Records regulations: The Federal rules restrict any use of the information to criminally investigate or prosecute any alcohol or drug abuse patient.[facility] RehabilitationIn the event this information is protected by the Federal Confidentiality of Alcohol and Drug Abuse Patient Records regulations: The Federal rules restrict any use of the information to criminally investigate or prosecute any alcohol or drug abuse patient.[facility] RehabilitationIn the event this information is protected by the Federal Confidentiality of Alcohol and Drug Abuse Patient Records regulations: The Federal rules restrict any use of the information to criminally investigate or prosecute any alcohol or drug abuse patient.[facility] RehabilitationIn the event this information is protected by the Federal Confidentiality of Alcohol and Drug Abuse Patient Records regulations: The Federal rules restrict any use of the information to criminally investigate or prosecute any alcohol or drug abuse patient.[facility] RehabilitationIn the event this information is protected by the Federal Confidentiality of Alcohol and Drug Abuse Patient Records regulations: The Federal rules restrict any use of the information to criminally investigate or prosecute any alcohol or drug abuse patient.[facility] RehabilitationIn the event this information is protected by the Federal Confidentiality of Alcohol and Drug Abuse Patient Records regulations: The Federal rules restrict any use of the information to criminally investigate or prosecute any alcohol or drug abuse patient.[facility] RehabilitationIn the event this information is protected by the Federal Confidentiality of Alcohol and Drug Abuse Patient Records regulations: The Federal rules restrict any use of the information to criminally investigate or prosecute any alcohol or drug abuse patient.[facility] RehabilitationIn the event this information is protected by the Federal Confidentiality of Alcohol and Drug Abuse Patient Records regulations: The Federal rules restrict any use of the information to criminally investigate or prosecute any alcohol or drug abuse patient.[facility] RehabilitationIn the event this information is protected by the Federal Confidentiality of Alcohol and Drug Abuse Patient Records regulations: The Federal rules restrict any use of the information to criminally investigate or prosecute any alcohol or drug abuse patient.[facility] RehabilitationIn the event this information is protected by the Federal Confidentiality of Alcohol and Drug Abuse Patient Records regulations: The Federal rules restrict any use of the information to criminally investigate or prosecute any alcohol or drug abuse patient.[facility] RehabilitationIn the event this information is protected by the Federal Confidentiality of Alcohol and Drug Abuse Patient Records regulations: The Federal rules restrict any use of the information to criminally investigate or prosecute any alcohol or drug abuse patient.[facility] RehabilitationIn the event this information is protected by the Federal Confidentiality of Alcohol and Drug Abuse Patient Records regulations: The Federal rules restrict any use of the information to criminally investigate or prosecute any alcohol or drug abuse patient.[facility] RehabilitationIn the event this information is protected by the Federal Confidentiality of Alcohol and Drug Abuse Patient Records regulations: The Federal rules restrict any use of the information to criminally investigate or prosecute any alcohol or drug abuse patient.[facility] RehabilitationIn the event this information is protected by the Federal Confidentiality of Alcohol and Drug Abuse Patient Records regulations: The Federal rules restrict any use of the information to criminally investigate or prosecute any alcohol or drug abuse patient.[facility] RehabilitationIn the event this information is protected by the Federal Confidentiality of Alcohol and Drug Abuse Patient Records regulations: The Federal rules restrict any use of the information to criminally investigate or prosecute any alcohol or drug abuse patient.[facility] RehabilitationIn the event this information is protected by the Federal Confidentiality of Alcohol and Drug Abuse Patient Records regulations: The Federal rules restrict any use of the information to criminally investigate or prosecute any alcohol or drug abuse patient.[facility] RehabilitationIn the event this information is protected by the Federal Confidentiality of Alcohol and Drug Abuse Patient Records regulations: The Federal rules restrict any use of the information to criminally investigate or prosecute any alcohol or drug abuse patient.[facility] RehabilitationIn the event this information is protected by the Federal Confidentiality of Alcohol and Drug Abuse Patient Records regulations: The Federal rules restrict any use of the information to criminally investigate or prosecute any alcohol or drug abuse patient.[facility] RehabilitationIn the event this information is protected by the Federal Confidentiality of Alcohol and Drug Abuse Patient Records regulations: The Federal rules restrict any use of the information to criminally investigate or prosecute any alcohol or drug abuse patient.[facility] RehabilitationIn the event this information is protected by the Federal Confidentiality of Alcohol and Drug Abuse Patient Records regulations: The Federal rules restrict any use of the information to criminally investigate or prosecute any alcohol or drug abuse patient.[facility] RehabilitationIn the event this information is protected by the Federal Confidentiality of Alcohol and Drug Abuse Patient Records regulations: The Federal rules restrict any use of the information to criminally investigate or prosecute any alcohol or drug abuse patient.[facility] RehabilitationIn the event this information is protected by the Federal Confidentiality of Alcohol and Drug Abuse Patient Records regulations: The Federal rules restrict any use of the information to criminally investigate or prosecute any alcohol or drug abuse patient.[facility] RehabilitationIn the event this information is protected by the Federal Confidentiality of Alcohol and Drug Abuse Patient Records regulations: The Federal rules restrict any use of the information to criminally investigate or prosecute any alcohol or drug abuse patient.[facility] the event this information is protected by the Federal Confidentiality of Alcohol and Drug Abuse Patient Records regulations: The Federal rules restrict any use of the information to criminally investigate or prosecute any alcohol or drug abuse patient.[facility] RehabilitationIn the event this information is protected by the Federal Confidentiality of Alcohol and Drug Abuse Patient Records regulations: The Federal rules restrict any use of the information to criminally investigate or prosecute any alcohol or drug abuse patient.[facility] RehabilitationIn the event this information is protected by the Federal Confidentiality of Alcohol and Drug Abuse Patient Records regulations: The Federal rules restrict any use of the information to criminally investigate or prosecute any alcohol or drug abuse patient.[facility] the event this information is protected by the Federal Confidentiality of Alcohol and Drug Abuse Patient Records regulations: The Federal rules restrict any use of the information to criminally investigate or prosecute any alcohol or drug abuse patient.[facility] RehabilitationIn the event this information is protected by the Federal Confidentiality of Alcohol and Drug Abuse Patient Records regulations: The Federal rules restrict any use of the information to criminally investigate or prosecute any alcohol or drug abuse patient.[facility] RehabilitationIn the event this information is protected by the Federal Confidentiality of Alcohol and Drug Abuse Patient Records regulations: The Federal rules restrict any use of the information to criminally investigate or prosecute any alcohol or drug abuse patient.[facility] RehabilitationIn the event this information is protected by the Federal Confidentiality of Alcohol and Drug Abuse Patient Records regulations: The Federal rules restrict any use of the information to criminally investigate or prosecute any alcohol or drug abuse patient.[facility] RehabilitationIn the event this information is protected by the Federal Confidentiality of Alcohol and Drug Abuse Patient Records regulations: The Federal rules restrict any use of the information to criminally investigate or prosecute any alcohol or drug abuse patient.[facility] RehabilitationIn the event this information is protected by the Federal Confidentiality of Alcohol and Drug Abuse Patient Records regulations: The Federal rules restrict any use of the information to criminally investigate or prosecute any alcohol or drug abuse patient.[facility] RehabilitationIn the event this information is protected by the Federal Confidentiality of Alcohol and Drug Abuse Patient Records regulations: The Federal rules restrict any use of the information to criminally investigate or prosecute any alcohol or drug abuse patient.[facility] RehabilitationIn the event this information is protected by the Federal Confidentiality of Alcohol and Drug Abuse Patient Records regulations: The Federal rules restrict any use of the information to criminally investigate or prosecute any alcohol or drug abuse patient.[facility] RehabilitationIn the event this information is protected by the Federal Confidentiality of Alcohol and Drug Abuse Patient Records regulations: The Federal rules restrict any use of the information to criminally investigate or prosecute any alcohol or drug abuse patient.[facility] RehabilitationIn the event this information is protected by the Federal Confidentiality of Alcohol and Drug Abuse Patient Records regulations: The Federal rules restrict any use of the information to criminally investigate or prosecute any alcohol or drug abuse patient.[facility] RehabilitationIn the event this information is protected by the Federal Confidentiality of Alcohol and Drug Abuse Patient Records regulations: The Federal rules restrict any use of the information to criminally investigate or prosecute any alcohol or drug abuse patient.[facility] RehabilitationIn the event this information is protected by the Federal Confidentiality of Alcohol and Drug Abuse Patient Records regulations: The Federal rules restrict any use of the information to criminally investigate or prosecute any alcohol or drug abuse patient.[facility] RehabilitationIn the event this information is protected by the Federal Confidentiality of Alcohol and Drug Abuse Patient Records regulations: The Federal rules restrict any use of the information to criminally investigate or prosecute any alcohol or drug abuse patient.[facility] RehabilitationIn the event this information is protected by the Federal Confidentiality of Alcohol and Drug Abuse Patient Records regulations: The Federal rules restrict any use of the information to criminally investigate or prosecute any alcohol or drug abuse patient.[facility] RehabilitationIn the event this information is protected by the Federal Confidentiality of Alcohol and Drug Abuse Patient Records regulations: The Federal rules restrict any use of the information to criminally investigate or prosecute any alcohol or drug abuse patient.[facility] RehabilitationIn the event this information is protected by the Federal Confidentiality of Alcohol and Drug Abuse Patient Records regulations: The Federal rules restrict any use of the information to criminally investigate or prosecute any alcohol or drug abuse patient.[facility] RehabilitationIn the event this information is protected by the Federal Confidentiality of Alcohol and Drug Abuse Patient Records regulations: The Federal rules restrict any use of the information to criminally investigate or prosecute any alcohol or drug abuse patient.[facility] RehabilitationIn the event this information is protected by the Federal Confidentiality of Alcohol and Drug Abuse Patient Records regulations: The Federal rules restrict any use of the information to criminally investigate or prosecute any alcohol or drug abuse patient.[facility] RehabilitationIn the event this information is protected by the Federal Confidentiality of Alcohol and Drug Abuse Patient Records regulations: The Federal rules restrict any use of the information to criminally investigate or prosecute any alcohol or drug abuse patient.[facility] RehabilitationIn the event this information is protected by the Federal Confidentiality of Alcohol and Drug Abuse Patient Records regulations: The Federal rules restrict any use of the information to criminally investigate or prosecute any alcohol or drug abuse patient.[facility] RehabilitationIn the event this information is protected by the Federal Confidentiality of Alcohol and Drug Abuse Patient Records regulations: The Federal rules restrict any use of the information to criminally investigate or prosecute any alcohol or drug abuse patient.[facility] RehabilitationIn the event this information is protected by the Federal Confidentiality of Alcohol and Drug Abuse Patient Records regulations: The Federal rules restrict any use of the information to criminally investigate or prosecute any alcohol or drug abuse patient.[facility] RehabilitationIn the event this information is protected by the Federal Confidentiality of Alcohol and Drug Abuse Patient Records regulations: The Federal rules restrict any use of the information to criminally investigate or prosecute any alcohol or drug abuse patient.[facility] RehabilitationIn the event this information is protected by the Federal Confidentiality of Alcohol and Drug Abuse Patient Records regulations: The Federal rules restrict any use of the information to criminally investigate or prosecute any alcohol or drug abuse patient.[facility] RehabilitationIn the event this information is protected by the Federal Confidentiality of Alcohol and Drug Abuse Patient Records regulations: The Federal rules restrict any use of the information to criminally investigate or prosecute any alcohol or drug abuse patient.[facility] RehabilitationIn the event this information is protected by the Federal Confidentiality of Alcohol and Drug Abuse Patient Records regulations: The Federal rules restrict any use of the information to criminally investigate or prosecute any alcohol or drug abuse patient.[facility] RehabilitationIn the event this information is protected by the Federal Confidentiality of Alcohol and Drug Abuse Patient Records regulations: The Federal rules restrict any use of the information to criminally investigate or prosecute any alcohol or drug abuse patient.[facility] RehabilitationIn the event this information is protected by the Federal Confidentiality of Alcohol and Drug Abuse Patient Records regulations: The Federal rules restrict any use of the information to criminally investigate or prosecute any alcohol or drug abuse patient.[facility] RehabilitationIn the event this information is protected by the Federal Confidentiality of Alcohol and Drug Abuse Patient Records regulations: The Federal rules restrict any use of the information to criminally investigate or prosecute any alcohol or drug abuse patient.[facility] RehabilitationIn the event this information is protected by the Federal Confidentiality of Alcohol and Drug Abuse Patient Records regulations: The Federal rules restrict any use of the information to criminally investigate or prosecute any alcohol or drug abuse patient.[facility] RehabilitationIn the event this information is protected by the Federal Confidentiality of Alcohol and Drug Abuse Patient Records regulations: The Federal rules restrict any use of the information to criminally investigate or prosecute any alcohol or drug abuse patient.[facility] RehabilitationIn the event this information is protected by the Federal Confidentiality of Alcohol and Drug Abuse Patient Records regulations: The Federal rules restrict any use of the information to criminally investigate or prosecute any alcohol or drug abuse patient.[facility] RehabilitationIn the event this information is protected by the Federal Confidentiality of Alcohol and Drug Abuse Patient Records regulations: The Federal rules restrict any use of the information to criminally investigate or prosecute any alcohol or drug abuse patient.[facility] RehabilitationIn the event this information is protected by the Federal Confidentiality of Alcohol and Drug Abuse Patient Records regulations: The Federal rules restrict any use of the information to criminally investigate or prosecute any alcohol or drug abuse patient.[facility] RehabilitationIn the event this information is protected by the Federal Confidentiality of Alcohol and Drug Abuse Patient Records regulations: The Federal rules restrict any use of the information to criminally investigate or prosecute any alcohol or drug abuse patient.[facility] RehabilitationIn the event this information is protected by the Federal Confidentiality of Alcohol and Drug Abuse Patient Records regulations: The Federal rules restrict any use of the information to criminally investigate or prosecute any alcohol or drug abuse patient.[facility] RehabilitationIn the event this information is protected by the Federal Confidentiality of Alcohol and Drug Abuse Patient Records regulations: The Federal rules restrict any use of the information to criminally investigate or prosecute any alcohol or drug abuse patient.[facility] Care Teams (unrecognized sec tion and content) Team Status: Active Member Role Status Dates Out of Town Doctor Primary Care Provider Active Team Status: Active Member Role Status Dates No Primary Care Physician Primary Care Provider Active Dr. Lul Singh DO Emergency Provider Active Dr. Vamsi Dvuall , DO Admit Provider, Other Provid er [...] DO Attending Provider, Emergency P rovider Active [facility] Primary Care Provider Active Team Status: Inactive Member Role Status Dates [facility] Primary Care Provider Active Dr. Rm Chirinos MD Attending Provider, Emergency Provi benjie Active Team Status: Inactive Member Role Status Dates [facility] Primary Care Provider Active Dr. Edwin Scales MD Attending Provider, Emergency Provider Active Team Status: Inactive Member Role Status Dates [facility] Primary Care Provider Active Dr. Olvin Ibarra DO Attending Provider, Emergency Provide r Active Team Status: Inactive Member Role Status No Primary Care Physician Primary Care Provider Active Juan Marquez MD Attending Provider, Emergency Provid er Active Team Status: Inactive Member Role Status Dates Out of Town Doctor Primary Care Provider Active Dr. Lin Johansen MD Emergency Provider Active Team Status: Inactive Member Role Status Dates [facility] Primary Care Provider Active Dr. Alexandro Garces MD Emergency Provider Active Dr. Vita Jefferson MD Admit Provider, Attending Prov ider Active Team Status: Active Member Role Status Dates [facility] Primary Care Provider Active Team Status: Inactive Member Role Status No Primary Care Physician Primary Care Provider Active Dr. Siddharth Herrera MD Attending Provider, Emergency Pr ovider Active Team Status: Inactive Member Role Status Dates [facility] Primary Care Provider Active Dr. Rm Chirinos MD Emergency Provider Active Team Status: Inactive Member Role Status Dates [facility] Primary Care Provider Active Dr. Edwin Scales MD Emergency Provider Active Team Status: Inactive Member Role Status Dates No Primary Care Physician Primary Care Provider Active Dr. Greg hPilip DO Attending Provider, Emergency P rovider Active [...] Status Dates Dr. Greg Philip , DO Emergency Provider Active No Primary Care Physician Primary Care Provider Active Team Status: Inactive Member Role Status Dates No Primary Care Physician Primary Care Provider Active Dr. Loki Soria , DO Emergency Provider Active Team Status: Inactive Member Role Status Dates No Primary Care Physician Primary Care Provider Active Dr. Lin Johansen MD Emergency Provider Active Dr. David Smith MD Admit Provider, Other Pro vider Active Dr. Ileana Lobo MD Attending Provider Active Commercial Account Executive Relationship Specialty Start Date End Date [facility]. [address] [place] [address] PCP - General Family Practice 12/31/19 Latosha Johnson LSW Truck Caterer 12/10/14 Vamsi Cohen MD Primary Staff Physician Cardiology 11/13/18 Commercial Account Executive Relationship Specialty Start Date End Date [facility]. [address] [place], [place] PCP - General Family Practice 12/31/19 Latosha Johnson LSW Truck Caterer 12/10/14 Vamsi Cohen MD Primary Staff Physician Cardiology 11/13/18 Commercial Account Executive Relationship Specialty Start Date End Date [facility] [address] [place] [address] PCP - General Family Practice 12/31/19 Latosha Johnson, BRONC BREAKER Truck Caterer 12/10/14 Vamsi Cohen MD Primary Staff Physician Cardiology 11/13/18 Commercial Account Executive Relationship Specialty Start Date End Date [facility]. [address] [place] PCP - General Family Practice 12/31/19 Latosha Johnson, BRONC BREAKER Truck Caterer 12/10/14 Vamsi Cohen MD Primary Staff Physician Cardiology 11/13/18 Commercial Account Executive Relationship Specialty Start Date End Date [facility] [address] [place], [place] PCP - General Family Practice 12/31/19 Latosha Johnson [facility] Truck Caterer 12/10/14 Vamsi Cohen MD Primary Staff Physician Cardiology 11/13/18 Commercial Account Executive Relationship Specialty Start Date End Date Dashawn Cain, PACKING ATTENDANT.TELEGRAPH SERVICE RATER [address] [facility] [place] [facility] - [facility] Family [facility] 03/08/22 Latosha Johnson [facility] Truck Caterer 12/10/14 Vamsi Cohen MD Primary Staff Physician Cardiology 11/13/18 Commercial Account Executive Relationship Specialty Start Date End Date Dashawn Cain, PACKING ATTENDANT.TELEGRAPH SERVICE RATER [address] [facility] [place] [facility] - General Family [facility] 03/08/22 Latosha Johnson LSW Truck Caterer 12/10/14 Vamsi Cohen MD Primary Staff Physician Cardiology 11/13/18 Commercial Account Executive Relationship Specialty Start Date End Date Paul, PACKING ATTENDANT.TELEGRAPH SERVICE RATER [address] [place] PCP - General Family Practice 03/08/22 Latosha Johnson, BRONC BREAKER Truck Caterer 12/10/14 Vamsi Cohen MD Primary Staff Physician Cardiology 11/13/18 Commercial Account Executive Relationship Specialty Start Date End Date Paul, PACKING ATTENDANT.TELEGRAPH SERVICE RATER [address] [place] PCP - General Family Practice 03/08/22 Latosha Johnson, BRONC BREAKER Truck Caterer 12/10/14 Vamsi Cohen MD Primary Staff Physician Cardiology 11/13/18 Commercial Account Executive Relationship Specialty Start Date End Date Paul, PACKING ATTENDANT.TELEGRAPH SERVICE RATER [address] [facility] [place] [facility] - General Family Practice 03/08/22 Latosha Johnson, BRONC BREAKER Truck Caterer 12/10/14 Vamsi Cohen MD Primary Staff Physician Cardiology 11/13/18 Commercial Account Executive Relationship Specialty Start Date End Date Paul, PACKING ATTENDANT.TELEGRAPH SERVICE RATER [address] [place] [address] PCP - General Family Practice 03/08/22 Latosha Johnson, BRONC BREAKER Truck Caterer 12/10/14 Vamsi Cohen MD Primary Staff Physician Cardiology 11/13/18 Commercial Account Executive Relationship Specialty Start Date End Date KamDashawn henderson, PACKING ATTENDANT.TELEGRAPH SERVICE RATER [address] [place], [place] PCP - General Family Practice 03/08/22 Latosha Johnson LSW Truck Caterer 12/10/14 Vamsi Cohen MD Primary Staff Physician Cardiology 11/13/18 Commercial Account Executive Relationship Specialty Start Date End Date eliseoDashawn, PACKING ATTENDANT.TELEGRAPH SERVICE RATER [address] [place] PCP - General Family Practice 03/08/22 Latosha Johnson LSW Truck Caterer 12/10/14 Vamsi Cohen MD Primary Staff Physician Cardiology 11/13/18 Commercial Account Executive Relationship Specialty Start Date End Date Dashawn Cain, PACKING ATTENDANT.TELEGRAPH SERVICE RATER [address] [place], [place] PCP - General Family Practice 03/08/22 Latosha Johnson LSW Truck Caterer 12/10/14 Vamsi Cohen MD Primary Staff Physician Cardiology 11/13/18 Commercial Account Executive Relationship Specialty Start Date End Date Dashawn Cain, PACKING ATTENDANT.TELEGRAPH SERVICE RATER [address] [facility] PCP - General Family Practice 03/08/22 Latosha Johnson LSW Truck Caterer 12/10/14 Vamsi Cohen MD Primary Staff Physician Cardiology 11/13/18 Commercial Account Executive Relationship Specialty Start Date End Date Alfredo Mccullough [place] [address] [place] PCP - General Family Medicine 12/31/19 03/07/22 Dashawn Cain, PACKING ATTENDANT.TELEGRAPH SERVICE RATER [address] [place] [place] PCP - General Family Medicine 03/08/22 Latosha Johnson, [facility] Truck Caterer 12/10/14 Vamsi Cohen MD Primary Staff Physician Cardiology 11/13/18 Commercial Account Executive Relationship Specialty Start Date End Date Dashawn Cain, PACKING ATTENDANT.TELEGRAPH SERVICE RATER [address] [place] [address] PCP - General Family Medicine 03/08/22 Latosha Johnson, [facility] Truck Caterer 12/10/14 Vamsi Cohen MD Primary Staff Physician Cardiology 11/13/18 Commercial Account Executive Relationship Specialty Start Date End Date DelfinDashawn, PACKING ATTENDANT.TELEGRAPH SERVICE RATER [address] [facility] [place] [address] PCP - General Family Medicine 03/08/22 Latosha Johnson, [facility] Truck Caterer 12/10/14 Vamsi Cohen MD Primary Staff Physician Cardiology 11/13/18 Commercial Account Executive Relationship Specialty Start Date End Date Dashawn, PACKING ATTENDANT.TELEGRAPH SERVICE RATER [address] [facility] [place] [address] PCP - General Family Medicine 03/08/22 Latosha Johnson, [facility] Truck Caterer 12/10/14 Vamsi Cohen MD Primary Staff Physician Cardiology 11/13/18 Commercial Account Executive Relationship Specialty Start Date End Date Dashawn Cain, PACKING ATTENDANT.TELEGRAPH SERVICE RATER [address] [place] [address] PCP - General Family Medicine 03/08/22 Latosha Johnson [facility] Truck Caterer 12/10/14 Vamsi Cohen MD Primary Staff Physician Cardiology 11/13/18 Commercial Account Executive Relationship Specialty Start Date End Date Paul, PACKING ATTENDANT.TELEGRAPH SERVICE RATER [address] [facility] [place] [address] PCP - General Family Medicine 03/08/22 Latosha Johnson [facility] Truck Caterer 12/10/14 Vamsi Cohen MD Primary Staff Physician Cardiology 11/13/18 Commercial Account Executive Relationship Specialty Start Date End Date Paul, PACKING ATTENDANT.TELEGRAPH SERVICE RATER [address] [place] [address] PCP - General Family Medicine 03/08/22 Latosha Johnson [facility] Truck Caterer 12/10/14 Vamsi Cohen MD Primary Staff Physician Cardiology 11/13/18 Commercial Account Executive Relationship Specialty Start Date End Date Dashawn, PACKING ATTENDANT.TELEGRAPH SERVICE RATER [address] [place] [address] PCP - General Family Medicine 03/08/22 Latosha Johnson [facility] Truck Caterer 12/10/14 Vamsi Cohen MD Primary Staff Physician Cardiology 11/13/18 Commercial Account Executive Relationship Specialty Start Date End Date eliseoDashawn, PACKING ATTENDANT.TELEGRAPH SERVICE RATER [address] [facility] [address] PCP - General Family Medicine 03/08/22 Latosha Johnson, BRONC BREAKER Truck Caterer 12/10/14 Vamsi Cohen MD Primary Staff Physician Cardiology 11/13/18 Commercial Account Executive Relationship Specialty Start Date End Date Dashawn Cain, PACKING ATTENDANT.TELEGRAPH SERVICE RATER [address] [place] [phone] PCP - General Family Medicine 03/08/22 Latosha Johnson, BRONC BREAKER Truck Caterer 12/10/14 Vamsi Cohen MD Primary Staff Physician Cardiology 11/13/18 Commercial Account Executive Relationship Specialty Start Date End Date Dashawn Cain, PACKING ATTENDANT.TELEGRAPH SERVICE RATER [address] [place] [phone] PCP - General Family Medicine 03/08/22 Latosha Johnson, BRONC BREAKER Truck Caterer 12/10/14 Vamsi Cohen MD Primary Staff Physician Cardiology 11/13/18 Commercial Account Executive Relationship Specialty Start Date End Date Dashawn Cain, PACKING ATTENDANT.TELEGRAPH SERVICE RATER PCP - General Family Medicine 03/08/22 Latosha Johnson [facility] Truck Caterer 12/10/14 Vamsi Cohen MD Primary Staff Physician Cardiology 11/13/18 Commercial Account Executive Relationship Specialty Start Date End Date Dashawn Cain, PACKING ATTENDANT.TELEGRAPH SERVICE RATER PCP - General Family Medicine 03/08/22 Latosha Johnson, BRONC BREAKER Truck Caterer 12/10/14 Vamsi Cohen MD Primary Staff Physician Cardiology 11/13/18 Commercial Account Executive Relationship Specialty Start Date End Date Latosha Johnson, BRONC BREAKER Truck Caterer 12/10/14 Vamsi Cohen MD Primary Staff Physician Cardiology 11/13/18 Commercial Account Executive Relationship Specialty Start Date End Date Vivi Smith MD [address] [place] [address] PCP - General Family Medicine 12/08/22 Latosha Johnson, BRONC BREAKER Truck Caterer 12/10/14 Vamsi Cohen MD Primary Staff Physician Cardiology 11/13/18 Commercial Account Executive Relationship Specialty Start Date End Date Vivi Smith MD [address] [place] [address] PCP - General Family Medicine 12/08/22 Latosha Johnson BRONC BREAKER Truck Caterer 12/10/14 Vamsi Cohen MD Primary Staff Physician Cardiology 11/13/18 Commercial Account Executive Relationship Specialty Start Date End Date Vivi Smith MD [address] [place] [address] PCP - General Family Medicine 12/08/22 Latosha Johnson BRONC BREAKER Truck Caterer 12/10/14 Vamsi Cohen MD Primary Staff Physician Cardiology 11/13/18 Commercial Account Executive Relationship Specialty Start Date End Date Vivi Smith MD [address] [place] [address] PCP - General Family Medicine 12/08/22 Latosha Johnson LSW Truck Caterer 12/10/14 Vamsi Cohen MD Primary Staff Physician Cardiology 11/13/18 Commercial Account Executive Relationship Specialty Start Date End Date Vivi Smith MD [address] [place] [address] PCP - General Family Medicine 12/08/22 Latosha Johnson, BRONC BREAKER Truck Caterer 12/10/14 Vamsi Cohen MD Primary Staff Physician Cardiology 11/13/18 Commercial Account Executive Relationship Specialty Start Date End Date Vivi Smith MD [address] [place] [address] PCP - General Family Medicine 12/08/22 Latosha Johnson, BRONC BREAKER Truck Caterer 12/10/14 Vamsi Cohen MD Primary Staff Physician Cardiology 11/13/18 Commercial Account Executive Relationship Specialty Start Date End Date Vivi Smith MD [address] [place] [address] PCP - General Family Medicine 12/08/22 Latosha Johnson, BRONC BREAKER Truck Caterer 12/10/14 Vamsi Cohen MD Primary Staff Physician Cardiology 11/13/18 Commercial Account Executive Relationship Specialty Start Date End Date Vivi Smith MD [address] [place] [address] PCP - General Family Medicine 12/08/22 Latosha Johnson, BRONC BREAKER Truck Caterer 12/10/14 Vamsi Cohen MD Primary Staff Physician Cardiology 11/13/18 Commercial Account Executive Relationship Specialty Start Date End Date Dashawn Cain, PACKING ATTENDANT.TELEGRAPH SERVICE RATER PCP - General Family Medicine 03/08/22 11/06/22 Vivi Smith MD [address] [place] [address] PCP - General Family Medicine 12/08/22 Latosha Johnson, BRONC BREAKER Truck Caterer 12/10/14 Vamsi Cohen MD Primary Staff Physician Cardiology 11/13/18 Commercial Account Executive Relationship Specialty Start Date End Date Vivi Smith MD [address] [place] [address] PCP - General Family Medicine 12/08/22 Latosha Johnson, BRONC BREAKER Truck Caterer 12/10/14 Vamsi Cohen MD Primary Staff Physician Cardiology 11/13/18 Commercial Account Executive Relationship Specialty Start Date End Date Vivi Smith MD [address] [place] [address] PCP - General Family Medicine 12/08/22 Latosha Johnson, BRONC BREAKER Truck Caterer 12/10/14 Vamsi Cohen MD Primary Staff Physician Cardiology 11/13/18 Commercial Account Executive Relationship Specialty Start Date End Date No, Physician [facility] PCP - General 03/20/23 Team Status: Active Member Role Status Dates No Primary Care Physician Primary Care Provider Active Dr. Lin Johansen MD Emergency Provider Active Dr. David Smith MD Admit Provider, Attending Provider Active Commercial Account Executive Relationship Specialty Start Date End Date Alfredo Mccullough MD [address] [place] [phone] PCP - General 01/18/21 Team Status: Inactive Member Role Status Dates Dr. Grge Philip DO Attending Provider, Emergency P neida Active No Primary Care Physician Primary Care Provider Active Team Status: Inactive Member Role Status Dates No Primary Care Physician Primary Care Provider Active Dr. Marc Carl , Emergency Provider Active Commercial Account Executive Relationship Specialty Start Date End Date Vivi Smith MD [address] [place] [address] PCP - General Family Medicine 12/08/22 Latosha Johnson, [facility] Truck Caterer 12/10/14 Vamsi Cohen MD Primary Staff Physician [...] Primary Care Provider Active Dr. Loki Soria , Attending Provider, Emergency Pro vider Active Team [...] Care Provider Active Dr. Lul Singh , Emergency Provider Active Dr. Vamsi Duvall DO Admit Provider, Attending Pr ovider Active Commercial Account Executive Relationship Specialty Start Date End Date Vivi Smith MD [address] [place] [address] PCP - General Family Medicine 12/08/22 Latosha Johnson, [facility] Truck Caterer 12/10/14 Vamsi Cohen MD Primary Staff Physician Cardiology 11/13/18 Commercial Account Executive Relationship Specialty Start Date End Date [facility] [address] [place] [address] PCP - General 08/15/23 Commercial Account Executive Relationship Specialty Start Date End Date Vivi Smith MD [address] [place] [address] PCP - General Family Medicine 12/08/22 Latosha Johnson, BRONC BREAKER Truck Caterer 12/10/14 Vamsi Cohen MD Primary Staff Physician Cardiology 11/13/18 Commercial Account Executive Relationship Specialty Start Date End Date Vivi Smith MD [address] [place] [address] PCP - General Family Medicine 12/08/22 Latosha Johnson, BRONC BREAKER Truck Caterer 12/10/14 Vamsi Cohen MD Primary Staff Physician Cardiology 11/13/18 Commercial Account Executive Relationship Specialty Start Date End Date Vivi Smith MD [address] [place] [address] PCP - General Family Medicine 12/08/22 Latosha Johnson, BRONC BREAKER Truck Caterer 12/10/14 Vamsi Cohen MD Primary Staff Physician Cardiology 11/13/18 Kyara Luis security system analystEndbander 10/12/23 Team Status: Active Member Role Status Dates SARAH MELLO Primary Care Provider Active Dr. Alexandro Garces MD Emergency Provider Active Dr. Vita Jefferson MD Admit Provider, Attending Prov ider Active Commercial Account Executive Relationship Specialty Start Date End Date Vivi Smith MD [address] [place] [address] PCP - General Family Medicine 12/08/22 Latosha Johnson, MICHELLE Truck Caterer 12/10/14 Vamsi Cohen MD Primary Staff Physician Cardiology 11/13/18 Kyara Luis, security system analystEndbander 10/12/23 Kyara Luis security system analyst [employer] Director 10/19/23 Commercial Account Executive Relationship Specialty Start Date End Date [facility] [address] [place] [address] PCP - General 08/15/23 Team Status: Inactive Member Role Status Dates Out of Town Doctor Primary Care Provider Active Dr. Lin Johansen MD Attending Provider, Emergency Provider Active Team Status: Inactive Member Role Status Dates Out of Town Doctor Primary Care Provider Active Ed Physician Provider Emergency Provider Active Commercial Account Executive Relationship Specialty Start Date End Date Vivi Smith MD [address] [place] [address] PCP - General Family Medicine 12/08/22 Latosha Johnson LSW Truck Caterer 12/10/14 Vamsi Cohen MD Primary Staff Physician Cardiology 11/13/18 Kyara Luis, security system analystEndbander 10/12/23 Commercial Account Executive Relationship Specialty Start Date End Date [facility] [address] [place] [address] PCP - General 08/15/23 Commercial Account Executive Relationship Specialty Start Date End Date [facility] [address] [place] [address] PCP - General 08/15/23 Commercial Account Executive Relationship Specialty Start Date End Date Vivi Smith MD [address] [place] [address] [phone] PCP - General Family Medicine 12/08/22 Latosha Johnson, [facility] Truck Caterer 12/10/14 Vamsi Cohen MD Primary Staff Physician Cardiology 11/13/18 Kyara Luis, security system analystEndbander 10/12/23 Commercial Account Executive Relationship Specialty Start Date End Date Vivi Smith MD [address] [place] [address] PCP - General Family Medicine 12/08/22 Latosha Johnson, [facility] Truck Caterer 12/10/14 Vamsi Cohen MD Primary Staff Physician Cardiology 11/13/18 Kyara Luis, security system analystEndbander 10/12/23 Commercial Account Executive Relationship Specialty Start Date End Date Vivi Smith MD [address] [place] [address] PCP - General Family Medicine 12/08/22 Latosha Johnson, [facility] Truck Caterer 12/10/14 Vamsi Cohen MD Primary Staff Physician Cardiology 11/13/18 Kyara Luis, security system analystEndbander 10/12/23 Commercial Account Executive Relationship Specialty Start Date End Date Vivi Smith MD [address] [place] [address] [phone] PCP - General Family Medicine 12/08/22 Latosha Johnson, BRONC BREAKER Truck Caterer 12/10/14 Vamsi Cohen MD Primary Staff Physician Cardiology 11/13/18 Kyara Luis, security system analystEndbander 10/12/23 Commercial Account Executive Relationship Specialty Start Date End Date [facility] [address] [place] [address] PCP - General 08/15/23 Commercial Account Executive Relationship Specialty Start Date End Date [facility] [address] [place] [address] PCP - General 08/15/23 Commercial Account Executive Relationship Specialty Start Date End Date Vivi Smith MD [address] [place] [address] PCP - General Family Medicine 12/08/22 Latosha Johnson, [facility] Truck Caterer 12/10/14 Vamsi Cohen MD Primary Staff Physician Cardiology 11/13/18 Kyara Luis, security system analystEndbander 10/12/23 Commercial Account Executive Relationship Specialty Start Date End Date Vivi Smith MD [address] [place] [address] PCP - General Family Medicine 12/08/22 Latosha Johnson, BRONC BREAKER Truck Caterer 12/10/14 Vamsi Cohen MD Primary Staff Physician Cardiology 11/13/18 Kyara Luis, security system analystEndbander 10/12/23 Commercial Account Executive Relationship Specialty Start Date End Date Vivi Smith MD [address] [place], [place] [phone] PCP - General Family Medicine 12/08/22 Latosha Johnson, [facility] Truck Caterer 12/10/14 Vamsi Cohen MD Primary Staff Physician Cardiology 11/13/18 Kyara Luis, security system analystEndbander 10/12/23 Commercial Account Executive Relationship Specialty Start Date End Date Vivi Smith MD [address] [place] [address] PCP - General Family Medicine 12/08/22 Latosha Johnson, [facility] Truck Caterer 12/10/14 Vamsi Cohen MD Primary Staff Physician Cardiology 11/13/18 Kyara Luis, security system analystEndbander 10/12/23 Commercial Account Executive Relationship Specialty Start Date End Date Vivi Smith MD [address] [place] [address] PCP - General Family Medicine 12/08/22 Latosha Johnson BRONC BREAKER Truck Caterer 12/10/14 Vamsi Cohen MD Primary Staff Physician Cardiology 11/13/18 Kyara Luis, security system analystEndbander 10/12/23 Commercial Account Executive Relationship Specialty Start Date End Date Vivi Smith MD [address] [place], [place] [phone] PCP - General Family Medicine 12/08/22 Latosha Johnson, [facility] Truck Caterer 12/10/14 Vamsi Cohen MD Primary Staff Physician Cardiology 11/13/18 Kyara Luis, security system analystEndbander 10/12/23 Commercial Account Executive Relationship Specialty Start Date End Date Alfredo Mccullough MD [address] [place] [phone] PCP - General 01/18/21 Commercial Account Executive Relationship Specialty Start Date End Date Alfredo Mccullough MD [address] [place] [phone] PCP - General 01/18/21 Commercial Account Executive Relationship Specialty Start Date End Date Vivi Smith MD [address] [place] [address] PCP - General Family Medicine 12/08/22 Latosha Johnson, [facility] Truck Caterer 12/10/14 Vamsi Cohen MD Primary Staff Physician Cardiology 11/13/18 Kyara Luis, security system analystEndbander 10/12/23 Commercial Account Executive Relationship Specialty Start Date End Date Vivi Smith MD [address] [place] [address] PCP - General Family Medicine 12/08/22 Latosha Johnson, [facility] Truck Caterer 12/10/14 Vamsi Cohen MD Primary Staff Physician Cardiology 11/13/18 Kyara Luis, security system analystEndbander 10/12/23 Commercial Account Executive Relationship Specialty Start Date End Date Vivi Smith MD [address] [place] [address] PCP - General Family Medicine 12/08/22 Latosha Johnson, BRONC BREAKER Truck Caterer 12/10/14 Vamsi Cohen MD Primary Staff Physician Cardiology 11/13/18 Kyara Luis, security system analystEndbander 10/12/23 Commercial Account Executive Relationship Specialty Start Date End Date Vivi Smith MD [address] [place] [address] PCP - General Family Medicine 12/08/22 Latosha Johnson BRONC BREAKER Truck Caterer 12/10/14 Vamsi Cohen MD Primary Staff Physician Cardiology 11/13/18 Kyara Luis, security system analystEndbander 10/12/23 Commercial Account Executive Relationship Specialty Start Date End Date Vivi Smith MD [address] [place] [address] PCP - General Family Medicine 12/08/22 Latosha Johnson, BRONC BREAKER Truck Caterer 12/10/14 Vamsi Cohen MD Primary Staff Physician Cardiology 11/13/18 Kyara Luis, security system analystEndbander 10/12/23 Commercial Account Executive Relationship Specialty Start Date End Date Vivi Smith MD [address] [place] [address] PCP - General Family Medicine 12/08/22 Latosha Johnson, BRONC BREAKER Truck Caterer 12/10/14 Vamsi Cohen MD Primary Staff Physician Cardiology 11/13/18 Kyara Luis, security system analystEndbander 10/12/23 Commercial Account Executive Relationship Specialty Start Date End Date Vivi Smith MD [address] [place] [address] PCP - General Family Medicine 12/08/22 Latosha Johnson LSW Truck Caterer 12/10/14 Vamsi Cohen MD Primary Staff Physician Cardiology 11/13/18 Kyara Luis, security system analystEndbander 10/12/23 Commercial Account Executive Relationship Specialty Start Date End Date [facility] [address] [place] [address] PCP - General 08/15/23 Commercial Account Executive Relationship Specialty Start Date End Date [facility] [address] [place] [address] PCP - General 08/15/23 Reason for Visit [...] Referred By Contac t Referred To Contact ANTHROPOLOGICAL LINGUIST Diagnoses STD exposure ROCEPHIN INJECTION - GONORRHEA Procedures INJECTION Phoebe Mckeon APRN.TELEGRAPH SERVICE RATER [address] [place] [address] Phoebe Mckeon APRN.TELEGRAPH SERVICE RATER [address] [place] [address] Referral ID Status Reason Start Date Expiration Date V isits Requested Visits Authorized [id number] Closed Benefit Check 05/10/2022 08/27/2022 1 1 [...] Expiration Date Visits Re quested Visits Authorized [id number] 1 1 Reason Onset Date Comments Med Refill 05/02/2023 Reason Comments High Blood Sugar Reason Onset Date Comments Transition Of Care 08/15/2023 Reason Onset Date Comments Endbander Chronic Care 09/29/2023 Reason Onset Date Comments Refill Request 09/21/2023 Reason Comments Forms DME: CCS for pump gleason pplies Reason Onset Date Comments Endbander Chronic Care 10/12/2023 Reason Onset Date Comments Transition Of Care 10/19/2023 Message Reason Onset Date Comments Transition Of Care 10/20/2023 Reason Onset Date Comments Transition Of Care 10/27/2023 Reason Onset Date Comments Transition Of Care 11/03/2023 Reason Onset Date Comments Transition Of Care 11/10/2023 Reason Comments Psoriasis (PKN) Reason Onset Date Comments Endbander Chronic Care 12/15/2023 Reason Onset Date Comments Medication Problem 01/23/2024 Skyrizi Reason Comments Medication Problem Returning Patient's Call [...] DSME MEDICAL NUTRITION ASSMT&IVNTJ INDIV EACH 15 [facility] MEDICAL NUTRITION ASSMT&IVNTJ INDIV EACH 15 [facility] MEDICAL NUTRITION ASSMT&IVNTJ INDIV EACH 15 [facility] MEDICAL NUTRITION ASSMT&IVNTJ INDIV EACH 15 [facility] Kvng Lewis MD [address] [place] [address] Referral ID Status Reason Start Date Expiration Date V isits Requested Visits Authorized [id number] Closed PCP Requested Referral 03/12/2024 03/12/2025 1 [...] Patient/family refused) 0944 (Given - Provider: Omari Bradley, RN) 0925 (Given - Provider: Alta Teague, STIVEN) heparin, porcine (PF) injection 500 Units (COMPLETED) 500 Units, Intravenous, Once, On Mon03/22/23 at 1645, For 1 dose 1609 (Given - Provider: Alta Teague RN) HYDROmorphone (DILAUDID) injection 0.25 mg (COMPLETED) 0.25 [...] RN) 0730 (Not Given - Provider: Omari Bradley RN - Reason: Patient/family refused)1130 (Not Given - Provider: Omari Bradley RN - Reason: Patient/family refused) pantoprazole (PROTONIX) injection 40 mg 40 mg, Intravenous, 2 times daily, First dose on Mon03/20/23 at 1410, Dilute each vial with 10 mL of 0.9% NaCl. 181 (Given - Provider: Liang Purcell RN)2100 (Not Given - Provider: Liang Boothe RN - Reason: Contraindicated - Comment: Too soon to previosu dose administration, pharmacy stated to hold and give 9am dose.) 0944 (Given - Provider: Omari Bradley RN)210 (Given - Provider: Liang Boothe RN) 0923 (Given - Provider: Alta Teague, RN) potassium chloride SA (K-DUR,KLOR-CON) CR tablet 40 mEq (COMPLETED) 40 mEq, Oral, Once, On Mon03/22/23 at 0945, For 1 dose, DO NOT CRUSH OR CHEW (if instructed may dissolve tablet(s) in liquid) DO NOT ADMINISTER DISSOLVED TABLET VIA SURGICALLY PLACED TUBE OR TUBE less than 14 Pashto. To administer dissolved tablet(s) mix with 4 ounces of water over 2-3 minutes, stir for 30 seconds prior to administration; rinse dosing cup and administer residual medication to ensure full dose given 09 (Given - Provider: Alta Teague, RN) prochlorperazine (COMPAZINE) injection 10 mg (COMPLETED) 10 mg, Intravenous, Once, On Mon03/20/23 at 0310, For 1 dose, If IV, give slow IV push at a rate not exceeding 5 mg/minute and remain lying down for 30 minutes to reduce risk of hypotension. If IM, inject deep into outer buttocks quadrant. 0319 (Given - Provider: Tony Hernandez RN - [...] flush med) 0539 (Given - Provider: Liang Boothe, STIVEN)1400 (Not Given - Provider: Alta Teague, STIVEN - Reason: Loss of IV access) sodium chloride 0.9% (NS) bolus 1,000 mL (COMPLETED) 1,000 mL, Intravenous, at 983.6 mL/hr, Once, On Mon03/20/23 at 0925, For 1 dose 0925 (New Bag - Provider: Zee Chahal, STIVEN)1026 (Stopped - Provider: Zee Chahal RN) sodium [...] Boothe RN)1150 (Given - Provider: Omari Bradley, RN)1823 (Given - Provider: Omari Bradley, RN)2100 (Not Given - Provider: Liang Boothe RN - Reason: Other - Comment: too soon to previous administration) 0538 (Given - Provider: Liang Boothe RN)1148 (Given - Provider: Alta Teague RN)1630 (Due) Continuous Medication Order 03/20/2023 03/21/2023 03/22/2023 lactated Ringers infusion () 100 mL/hr, Intravenous, Continuous, Starting on Mon03/20/23 at 1235, For 10 hours 1235 (New Bag - Provider: Zee Chahal, STIVEN)1805 (New Bag - Provider: Sixto Mercado RN)2300 (Stopped - Provider: Liang Boothe, STIVEN) subcutaneous insulin pump Mis Miscellaneous, Continuous, Starting on Mon03/21/23 at 1245, [...] 30 1245 (Not Given - Provider: Omari Bradley, STIVEN - Reason: Patient/family refused) PRN Medication Order [...] Boothe RN) 0544 (Given - Provider: Liang Boothe, STIVEN)1150 (Given - Provider: Omari Bradley RN)1927 (Given - Provider: Liang Boothe, STIVEN) 0429 (Given - Provider: Liang Boothe, STIVEN) [...] Sixto Mercado RN)2307 (Return to [facility] - Provider: Liang Boothe RN) promethazine (PHENERGAN) suppository 12.5 mg 12.5 mg, Rectal, Every 6 hours PRN, nausea, vomiting, Starting on Mon03/21/23 at 1006 sodium chloride (PF) (NS) 0.9 % contrast line flush 10 mL (COMPLETED) 10 mL, Intravenous, Once in imaging, contrast, Per service dismantler (Radiology) for line patency check prior to contrast administration, Starting on Mon03/20/23 at 0551, For 1 dose 0806 (Given - Provider: Kaylyn Alvarado, TECHNOLOGIST) sodium chloride (PF) (NS) 0.9 % contrast line flush 80 mL (COMPLETED) 80 mL, Intravenous, Once in imaging, contrast, Per service dismantler (Radiology), Starting on Mon03/20/23 at 0551, For [...] BE BASED ON THE PRIMARY CLINICAL RECORDS. [facility]. provides no warranty or guarantee of the accuracy or completeness of information in this document.
[2025-08-09 22:40] LABS: AST(SGOT) 18 U/L (<=31); Alanine Aminotransfer ALT/SGPT 11 U/L (<=34); Albumin, Serum 4.5 g/dL (3.5-5.0); Alkaline Phosphatase 96 U/L (35-104); Anion Gap 28 (5-15); BUN 18 mg/dL (4-19); BUN/Creat Ratio 16.4 RATIO (10-20); Bilirubin, Direct 0.27 mg/dL (0.00-0.30); Calcium,Total 9.8 mg/dL (7.6-11.0); Carbon Dioxide 10.1 mmol/L (21.0-32.0); Chloride 95 mmol/L (98-108); Estimated Creatinine Clearance 82.82 ml/min (50-250); Globulin 3.2 g/dL (2.2-4.2); Glucose 448 mg/dL (70-99); Potassium 4.6 mmol/L (3.3-5.1)
[2025-08-09 22:40] LABS: Barbiturate Urine NEGATIVE (< 200 ng/mL); Benzodiazepine Urine NEGATIVE (< 200 ng/mL); PCP Urine NEGATIVE (< 25 ng/mL); THC Urine PRESUMPTIVE POSITIVE (< 50 ng/mL)
--- NOTE | 2025-08-09 22:45 | HP.PCM.HOS_ITS ---
HPI - General General Date of Admission: 08/09/25 Date of Service: 08/09/25 Chief Complaint: Elevated BS, N/V, concern for DKA. HPI Narrative The patient is a 30 y/o F w/ PMHx: GERD, Diabetes mellitus type I with insulin pump with chronic diabetic gastroparesis, Anxiety and Depression/Borderline personality disorder/PTSD/Panic disorder, Chronic cannabis use with history of cyclic emesis syndrome associated, Aortic aneurysm s/p aortic root repair w/ Marfan syndrome, Nicotine Vaping use who presents to [facility] [place] [facility] on 08/09/2025 with history of onset of nausea and emesis increased above her baseline that she is been having chronic issues ongoing since June in addition to chronic issues with alteration between diarrhea and constipation with elevated blood sugars with concern for possible recurrent DKA prompting eventual ED evaluation. Workup in the ED included T98.2, heart 126, BP 135/84, respiratory rate 20, 97% on room air, urinalysis with elevated specific gravity 1.025, protein 30, glucose of thousand, ketone 150, negative nitrite, negative leukocyte esterase with no urine RBCs or WBCs with 1+ bacteria, CBC with WBC 15.5, hemoglobin 115, platelet 220 with left shift, VBG with pH 7.41, pO2 75, bicarb 13, 95%, CMP with sodium 133, potassium 4.6 however noted to be hemolyzed, chloride 95, carbon dioxide 10.1, anion gap 28, BUN/creatinine 18/1.12, GFR 67, glucose 448, hepatic profile unremarkable, Phos pending upon request evaluation of patient, magnesium 1.8, lipase 13, beta hydroxybutyratic 5.9, serum negative, UDS with positive cannabis. In the ED patient administered 1 L normal saline, famotidine 20 mg IV x 1, Ativan 1 mg IV x 1, promethazine 12.5 mg IM x 1, in addition to insulin drip initiation. [facility] Medical History Type 1 diabetes Leukocytosis Hx of diabetic gastroparesis Diabetic keto-acidosis Intractable nausea and vomiting DKA, type 1 Insulin dependent diabetes mellitus Wears glasses Marijuana use Syncope Gastroparesis Electronic cigarette use History of echocardiogram History of stress test Cardiology follow-up encounter Metabolic acidosis Vomiting delivery delivered History of marijuana use Hx of diabetic gastroparesis Diabetes mellitus with hyperglycemia Intractable cyclical vomiting with nausea Depression Compensated metabolic acidosis Dysuria UTI (urinary tract infection) Hypokalemia Metabolic acidosis Leukocytosis Intractable abdominal pain Intractable nausea and vomiting Panic disorder Major depressive disorder, recurrent severe without psychotic features Diabetic gastroparesis Substance abuse Kidney stones Kidney disease Smoker Intractable vomiting Type 1 diabetes Marfan syndrome PTSD (post-traumatic stress disorder) Borderline personality disorder Home Medications ?Medication ?Instructions ?Recorded ?Last Taken ?Type pen needle, diabetic 29 gauge x #100 ea 08/10/23 Unkno wn Rx 1/2 (Ultra-Thin II Insulin Pen [place]) risankizumab-rzaa 150 mg/mL 150 mg subcut .[id number] PS ORIASIS 02/07/24 02/03/25 History subcutaneous pen injector (Skyrizi) albuterol sulfate 90 mcg/actuation 1 - 2 puff inhalati on Q4H PRN PRN 08/01/24 Unknown Rx aerosol inhaler (Ventolin HFA) Wheezing ##1 doxepin 6 mg tablet 6 mg PO QHS insomnia 2 5 03/04/25 History quetiapine 50 mg tablet,extended 50 mg PO QHS mood 03/04/25 History release 24 hr pantoprazole 40 mg tablet,delayed 40 mg PO QDAY garrett #9 0 tabs 03/31/25 Unknown Rx release blood-glucose sensor (FreeStyle #2 ea 05/21/25 Unknown Rx Rosario 3 Plus Sensor device) blood-glucose,attic fans mechanic,cont #1 ea 05/21/25 Unknown Rx (FreeStyle [place] 3 [place]) cholecalciferol (vitamin D3) 50 50 mcg PO QDAY #90 cap s 05/21/25 Unknown Rx mcg (2,000 unit) capsule dextromethorphan IR 45 1 tab PO QAM 05/21/25 Unknow n History mg-bupropion ER 105 mg biphasic tablet (Auvelity) gabapentin 600 mg tablet 600 mg PO BID PRN anxiety 08/08/25 History insulin lispro 100 unit/mL 15 unit (0.15 mL) subcut TI D #15 mL 05/21/25 Unknown Rx subcutaneous pen (Humalog KwikPen (U-100) Insulin) propranolol 10 mg tablet 10 mg PO BID PRN anxiety Unknown History blood sugar diagnostic (Contour #100 ea 05/28/25 Unkno wn Rx Next Test Strips) insulin glargine 100 unit/mL (3 36 unit subcut QHS Unknown History mL) subcutaneous pen (Lantus Solostar U-100 Insulin) Allergy/AdvReac Type Severity Reaction Status Date / Time adhesive tape Allergy Intermediate Rash Verified 08/09/25 21:15 cephalexin (From Keflex) Allergy Intermediate yeast Verified 08/09/25 21:15 infection morphine Allergy Intermediate Rash Verified 08/09/25 21:15 oxycodone (From Percocet) Allergy Intermediate Rash Verified 08/09/25 21:15 ondansetron AdvReac I BLACK Verified 08/09/25 21:15 OUT AND LOSE CONTROL OF MY BLADDER Family History Mother Anxiety and depression Bipolar disorder PCOS (polycystic ovarian syndrome) Father Valvular heart disease Surgical History H/O tubal ligation History of loop recorder Hx of appendectomy Hx of eye surgery H/O aortic root repair Social History household members: spouse Smoking Status: Current every day smoker tobacco type: e-cigarettes Tobacco: How many years used: 3 Electronic Cigarette Use: with nicotine second hand exposure: No alcohol intake: never substance use type: marijuana ROS ROS Narrative Admission Review of Systems: CONSTITUTIONAL: No weight loss, fever, chills, + weakness or fatigue. HEENT: Eyes: No visual loss, blurred vision, double vision or yellow sclerae. Ears, Nose, Throat: No hearing loss, sneezing, congestion, runny nose or sore throat. SKIN: No rash or itching, lesions, wounds. CARDIOVASCULAR: No chest pain, chest pressure or chest discomfort, palpitations, edema, orthopnea, syncopal events. RESPIRATORY: No shortness of breath, cough or sputum, wheezing, hemoptysis. GASTROINTESTINAL: + anorexia, nausea, vomiting, diarrhea alternating with constipation with associated abdominal discomfort. No melena, BRBPR. GENITOURINARY: No dysuria, frequency, urgency or retention. NEUROLOGICAL: No headache, dizziness, syncope, paralysis, ataxia, numbness or tingling in the extremities, focal weakness, change in bowel or bladder control, seizure. MUSCULOSKELETAL: + muscle, back pain, joint pain or stiffness. HEMATOLOGIC: No anemia, bleeding or bruising. LYMPHATICS: No enlarged nodes. No history of splenectomy. PSYCHIATRIC: History of anxiety depression/borderline personality disorder/PTSD/panic disorder. ENDOCRINOLOGIC: No reports of sweating, cold or heat intolerance. + polyuria or polydipsia. ALLERGIES: No history of asthma, hives, eczema or rhinitis. Vital Signs Vital Signs Vital Signs: 08/09/25 21:15 08/09/25 21:15 08/09/25 21:21 Temperature 98.2 F Temperature Source Oral Pulse Rate 126 H 131 H Respiratory Rate 20 H 16 Respiratory Effort Short of Breath Labored Respiratory Pattern Tachypnea Blood Pressure 135/84 H Blood Pressure Mean 101 Pulse Ox 97 97 Oxygen Delivery Method Room Air Room Air 08/09/25 21:30 08/09/25 22:01 Temperature Temperature Source Pulse Rate 115 H Respiratory Rate 26 H Respiratory Effort Respiratory Pattern Blood Pressure 135/89 H Blood Pressure Mean 99 Pulse Ox 96 98 Oxygen Delivery Method Room Air Room Air Weight Weight: 178 lb 5.663 oz Body Mass Index (BMI) 26.3 Physical Exam Narrative Physical Examination: General: Awake, alert, oriented x 3 and cooperative, seated upright in the ED, fatigued and ill-appearing, dry heaving with occasional bout of emesis into an emesis bag, notes feeling very poorly. Skin: Normal color, normal turgor, no icterus, no cyanosis except occasional abrasion, ecchymoses. HEENT: AT/NC, EOMI, PERRLA, dry MM, no carotid bruits or JVD noted. Lungs: Diminished, greater bases, mild increased respiratory rate but no distress, no rales, ronchi or wheezing. Heart: Currently regular rate and rhythm; no gallop, rub audible. Abdomen: Soft, generalized discomfort to palpation but no rebound or guarding, no marked distention, only hyperactive BS, no HSM appreciated. Extremities: No cyanosis, clubbing, or edema. Neurological: Patient awake, alert, oriented as noted, cognitive function intact; pupils equally reactive to light and accommodation, cranial nerves grossly normal, moving all 4 extremities, no focal deficits, strength moderately to severely globally decreased secondary to acute presentation. Psychiatric: Affect appears flat, fatigued, ill-appearing, no acute evidence of depressive or anxiety feeling but does have underlying history. Results Lab / Micro Data 08/09/25 21:53 08/09/25 21:53 Labs: Laboratory Results - last 24 hr 08/09/25 21:18: POC Glucose 418 H 08/09/25 21:44: Urine Color Yellow, Urine Clarity Clear, Urine pH 5.0, Ur Specific [place] 1.025, Urine Protein 30 H, Urine Glucose (UA) 1000 H, Urine Ketones 150 A*, Urine Occult Blood Negative, Urine Nitrite Negative, Urine Bilirubin Negative, Urine Urobilinogen Normal, Ur Leukocyte Esterase Negative, Urine RBC 0-5 SEEN, Urine WBC 0-5 SEEN, Ur Squamous Epith Cells 0-5 SEEN, Urine Bacteria 1+, Urine Mucus 0 SEEN, Urine Opiates Screen NEGATIVE, U Buprenorphine Qual NEGATIVE, Ur Oxycodone Screen NEGATIVE, Urine Methadone Screen NEGATIVE, Urine Fentanyl Screen NEGATIVE, Ur Barbiturates Screen NEGATIVE, Ur Phencyclidine Scrn NEGATIVE, Ur Amphetamines Screen NEGATIVE, U Benzodiazepines Scrn NEGATIVE, Urine Cocaine Screen NEGATIVE, U Cannabinoids Screen PRESUMPTIVE POSITIVE 08/09/25 21:53: WBC 15.5 H, RBC 5.03, Hgb 15.0, Hct 45.4, MCV 90.3, MCH 29.8, MCHC 33.0, RDW Std Deviation 42.5, RDW Coeff of Joyce 13.0, Plt Count 220, MPV 12.0, Immature Gran % (Auto) 1.000 H, Neut % (Auto) 84.8 H, Lymph % (Auto) 10.3 L, Dickey % (Auto) 3.6, Eos % (Auto) 0.0, Baso % (Auto) 0.3, Absolute Neuts (auto) 13.1 H, Absolute Lymphs (auto) 1.60, Nucleated RBC % 0, Sodium 133, Potassium 4.6, Chloride 95 L, Carbon Dioxide 10.1 L, Anion Gap 28 H, BUN 18, Creatinine 1.12, Estim Creat Clear Calc 82.82, Est GFR (MDRD) Non-Af 67, BUN/Creatinine Ratio 16.4, Glucose 448 H, Calcium 9.8, Magnesium 1.8, Total Bilirubin 0.86, Direct Bilirubin 0.27, AST 18, ALT 11, Alkaline Phosphatase 96, Total Protein 7.7, Albumin 4.5, Globulin 3.2, Lipase 13, b-Hydroxybutyric mmol/L 5.9 H, Serum , Qual NEGATIVE ABG Data ABG results: ABG 08/09/25 22:06 Specimen Type ISABELLE Sample Site Not entered VBG pH 7.41 VBG pO2 75 H VBG HCO3 13 L VBG Total CO2 13 L VBG O2 Sat (Calc) 95 H VBG Base Excess -12 L POC Mix VBG pCO2 Pt Tmp 20.1 L O2 Delivery Device Room Air Assessment & Plan Assessment/Plan (1) DKA (diabetic ketoacidosis): PLAN: Plan The patient is a 30 y/o F w/ PMHx: GERD, Diabetes mellitus type I with insulin pump with chronic diabetic gastroparesis, Anxiety and Depression/Borderline personality disorder/PTSD/Panic disorder, Chronic cannabis use with history of cyclic emesis syndrome associated, Aortic aneurysm s/p aortic root repair w/ Marfan syndrome, Nicotine Vaping use who presents to [facility] [place] on 08/09/2025 with history of onset of nausea and emesis increased above her baseline that she is been having chronic issues ongoing since June in addition to chronic issues with alteration between diarrhea and constipation with elevated blood sugars with concern for possible recurrent DKA prompting eventual ED evaluation. #1. DKA w/ IDDM with chronic gastroparesis: Will admit to to the ICU, continue on insulin drip, check serial K+, glucose w/ IVF changes pending these levels, serial chemistry, magnesium and Phos levels already obtained per ED with magnesium noted to be 1.8 and Phos pending upon request evaluation of patient, will request hemoglobin A1c is most recently noted a 02/03/2025 at 10.9% but per Endocrinology note from 05/21/25 in office HgbA1c 8.3%, transition to home SC regimen when gap closed w/ overlap on drip, nutrition consultation for education and teaching. Encouraged diet and insulin regimen compliance. #2. Acute kidney injury likely secondary to #1 with also GI losses with intractable nausea and emesis: Admission BUN/Cr 18/1.12, GFR 67 normally within appropriate GFR, prior baseline creatinine noted to be primarily 0.6-0.8. Will continue as noted to aggressively hydrate, hold nephrotoxic medications and repeat chemistry in AM. If no improvement would plan FeNa assessment. #3. Chronic cannabis usage with history of cyclic emesis syndrome: UDS with presumptive positive cannabis, encourage clean status as patient continuously has issues with ongoing cannabis associated cyclic emesis syndrome. #4. Aortic aneurysm with history of Marfan syndrome: S/p aortic root repair, encourage continued follow-up with cardiology as previously arranged. #5. Anxiety and Depression/Borderline personality disorder/PTSD/Panic disorder: We will continue patient home doxepin and Seroquel regimen, encourage continued outpatient follow-up with primary care as previously arranged in counseling as previously arranged. #6. Nicotine vape user: Encouraged cessation, inpatient consultation per RT, NR if desired. #7. GERD: Maintained on IV PPI given current presentation and transition once able. #8. History of abnormal TSH: History of elevated TSH following with endocrinology with noted plan for TPO assessment and initiation if appropriate on supplementation, most recently noted labs 02/03/2025 TSH normal range 1.140. #9. DVT prophylaxis: Lovenox. Charges/Coding Visit Charges Inpatient E&M: 27920 Init Hosp L3
[2025-08-09 22:58] LABS: Chloride 94 mmol/L (98-108); Potassium 4.6 mmol/L (3.3-5.1)
[2025-08-09 23:11] LABS: Anion Gap 29 (5-15); Carbon Dioxide 9.5 mmol/L (21.0-32.0)
[2025-08-09] MEDS: Insulin Lispro 100 UNIT in 0.9% Normal Saline (100mL Bag) 99 ML 6.8 UNIT CONT INF (23:25)
--- OUTSIDE RECORDS SUMMARY | 2025-08-09 23:35 | XMS RPT_ITS | CCD ---
Author Organization [facility] Care Team Providers Care Animal Care Attendant Name Role Phone MEDICAL, CLINIC Unavailable Unavailable TEACH, MTS LUCY Unavailable Unavailable VAMSI MARRUFO Unavailable Unavailable MED[facility], CLINIC Unavailable Unavailable Latosha Castro Unavailable Unavailab Vamsi Zaidi MD Unavailable [facility] Primary Care Provi benjie PHYSICIAN, PATIENT UNSURE Primary Care Physician Unavailable Kamwesa HOT PATCHER.Dashawn MALAVE Primary Care Provider Vamsi Cohen MD Unavailable Kamwesa HOT PATCHER.Dashawn MALAVE Primary Care Provider Vamsi Cohen MD Unavailable [facility] Care Provi benjie Kamwesa HOT PATCHER.Dashawn MALAVE Primary Care Provider Latosha Castro Unavailable Unavailab Vamsi Zaidi MD Unavailable [phone] Kamwesa HOT PATCHER.Dashawn MALAVE Primary Care Provider Kamwesa HOT PATCHER.Dashawn MALAVE Primary Care Provider Vivi Smith MD Primary Care Provider Kamwesa HOT PATCHER.Dashawn MALAVE Primary Care Provider No, Physician Primary [...] Attending Provider Dr. Ileana Lobo Other Provider [facility] Primary Care Provider Unav ailDr. Lul Ferrell Emergency Provider Dr. Vamsi Duvall Admit Provider Unavailabl e Dr. Vamsi Duvall Other Provider Unavailabl e Dr. Dangelo Encarnacion Attending Provider [phone] Dr. Dangelo Encarnacion Other Provider [phone] Care Physician, No Primary Primary Care Provider Unavailable Toby SALEEM, Kyara Richter Unavailable Unavailab FUNMILAYO Del Angel Primary Care Provider Dr. Alexandro Garces Emergency Provider Dr. Vita Jefferson Admit Provider [phone] Koram, Dr. Vita Rojas Attending Provider Koram, Dr. Vita Rojas Other Provider Toby SALEEM, Kyara Richter Unavailable Unavailab le Care Physician, No Primary Primary Care Provider Unavailable Dr. Lul Singh Emergency Provider Dr. Vamsi Duvall Admit Provider Unavailvera e Dr. Vamsi Duvall Other Provider Unavailabl e Alysha, Dr. Pierson Attending Provider Dr. Dangelo Encarnacion Other Provider [phone] FUNMILAYO SMITH Primary Care Provider Dr. Alexandro Garces Emergency Provider Koram, Dr. Vita Rojas Admit Provider Korismael, Dr. Vita Rojas Attending Provider [phone] Kor, Dr. Vita Rojas Other Provider SMITH, AHMAD KHPATRICIO Primary Care Unavailabl e GREG ZIMMERMAN Attending Unavailable MADONNA TORO Attending Unavailable SMITH, AHMAD KHPATRICIO Primary Care Unavailabl e MADONNA TORO Referring Unavailable SMITH, AHMAD KHPATRICIO Primary Care Unavailabl e SMITH, VIVI BARAHONA Attending Unavailabl e [facility] Care Unavailabl e SMITH, [facility] BAR[facility]ONA Primary Care Unavailabl e SMITH, AHNHAngel KHPATRICIO Primary Care Unavailabl e CAMILO CENTENO [...] Unavailabl e JESSICA GUERRERO Attending Unavailable SMITH, AHNHD [facility] Primary Care UnavailKVNG Bush Attending Unavailable [facility] Primary Care Unavailabl e JASON PAREDES Attending Unavailable SMITH, AHMAD [facility] Primary Care Unavailabl e JASON PAREDES Referring Unavailable [facility] Primary Care Unavailvera e JESSICA GUERRERO Attending Unavailable KVNG LEWIS Referring Unavailable [facility], [facility] Primary Care Unavailabl e LETICIA HYLTON Attending Unavailable SMITH, [facility] Primary Care Unavailabl e MISHEL ORTEZ Attending Unavailable [facility] Unavailable Edie Bear Attending Unavailable [...] Klein Consulting Unavailable Ileana Lobo Admitting Unavailable Ilaena Lobo Consulting Unavailable Beam VSC, [place] Primary Care Unavailable Dangelo Encarnacion Attending Unavailable Dangelo Encarnacion Consulting Unavailable Vita Jefferson Attending Unavailable Ileana Lobo Consulting Unavailable Ileana oLbo Admitting Unavailable Beam VSC, [place] Primary Care [...] ilable Dangelo Encarnacion Consulting Unavailable Beam VS, [facility] Primary Care Unavailable Greg Mon Attending Unavailable Dangelo Encarnacion Admitting Unavailable Kenyetta Suarez Consulting Unavailable Kenyetta Suarez Admitting Unavailable John Knapp Attending Unavailable Care Physician, No Primary Primary Care Unava ilable Ronny, Vita Crystal Attending Unavailable Beam VSC, [facility] Primary Care Unavailable Siddharth Saucedo Consulting Unavailable [...] Unavailable Umair Hayes Attending Unavailable Beam VSC, [facility] Primary Care Unavailable Siddharth Saucedo Attending Unavailable Greg Mon Attending Unavailable Greg Mon Consulting Unavailable Estevan Davis Attending Unavailable Estevan Davis Consulting Unavailable Ileana Lobo Attending Unavailable Allergies Allergy Classification Reported Allergen(s) Allergy Type Date of Onset Reaction(s) Facility Acetaminophen / oxyCODONE (2 sources) Acetaminophen / oxyCODONE Drug Allergy 4 Itching, Rash, Intolerance [facility] Adhesive Tape (1 source) Adhesive Tape Substance Allergy 4 Rash [facility] Cephalosporins (antibiotic) (2 sources) Cephalexin Drug Allergy 4 Other: See Comments [facility] NSAIDs (1 source) Indomethacin Drug Allergy 4 Rash [facility] Ondansetron (2 sources) Ondansetron Drug Allergy 5 Other: See Comments [facility] Opioid Agonists (2 sources) Morphine Drug Allergy 4 Itching, Rash [facility] (20 sources) Acetaminophen / oxyCODONE; Translations: [acetaminophen-ox [...] Propensity to adverse reactions to substance Redness [facility] (20 sources) Ondansetron; Translations: [ondansetron] Drug Allergy 5 I BLACK OUT AND LOSE CONTROL OF MY BLADDER [facility] (20 sources) Adhesive agent; Translations: [ADHESIVE] Drug Allergy 3 Rash [facility] (20 sources) Indomethacin; Translations: [INDOMETHACIN] Drug Allergy 4 Rash [facility] (2 sources) Adhesive Tape-Silicones; Translations: [ADHESIVE TAPE-SILICONES] Propensity to adverse reactions to drug 3 [facility] (1 source) Ondansetron; Translations: [ONDANSETRON HCL] Drug Allergy 3 [facility] (2 sources) Acetaminophen Drug Allergy 3 [facility] (15 sources) Adhesive Tape; Translations: [adhesive tape] Allergy to substance 3 Rash [facility] (15 sources) oxyCODONE Drug Allergy 3 Itching, Rash [facility] (1 source) Acetaminophen Drug Allergy 3 Itching, Rash [facility] (1 source) Wound Dressing Adhesive Drug Allergy 3 [facility] (1 source) Cephalexin Drug Allergy 5 [facility] (1 source) Morphine Drug Allergy 5 [facility] (1 source) Ondansetron Drug Allergy 5 [facility] (1 source) oxyCODONE Drug Allergy 5 [facility] Medications Current Medications Medication Drug Class(es) Dates Sig (Normalized) Sig (Original) acetaminophen 325 mg / HYDROcodone bitartrate 5 mg oral tablet (2 sources) Opioid Agonist Start: 10-21-2024 take 1 tablet by mouth every six hours as needed for pain HYDROcodone-aceta minophen ([place]) 5-325 MG tablet TAKE 1 TABLET BY [...] Active Comment on above: Use as directed [id number] actuat albuterol 0.09 mg/actuat metered dose [...] above: Take 2 tablets by mo [facility] once daily for 1 [...] 12-09-2024 cholecalcifero l (Vitamin D-3) 1.25 MG (94980 UT) capsule Take by mouth 1 (one) [...] / neomycin 3.5 mg/ml / polymyxin b 56607 unt/ml ophthalmic suspension (1 source) Aminoglycoside Antibacterial, [...] Comment on above: Take 1 tablet by [facility] one time only for 1 dose. gabapentin [...] Diabetes mellitus type 1, controlled, without complications ([facility]) Inject 43 Units subcutaneously every 24 hours. [...] hyperglycemia, with long-term current use of insulin ([facility]) , Insulin pump status Inject 43 Units subcutaneously as directed in the event of Insulin pump failure. 15 mL 1 05/17/2024 06/25/2024 Discontinued Start: 08-16-2022 insulin glargi ne (LANTUS SOLOSTAR, BASAGLAR KWIKPEN) 100 unit/mL (3 mL) Indications: Type 1 diabetes mellitus with hyperglycemia, with long-term current use of insulin ([facility]) , Insulin pump status Inject 43 Units [...] Diabetes mellitus type 1, controlled, without complications ([facility]) Please inject three times a day with [...] Comment on above: Take 1 capsule by [facility] twice daily with meals. metoclopramide [...] Indications: Obstruction of central line, initial encounter ([facility]) 2 mL by INTRALUMINAL route one time [...] (HCC) , Insulin pump status Use 1 [place] in the nose as needed for low [...] subcutaneously for insulin shock. 250.03 Use 1 [place] in the n ose as needed for [...] Comment on above: Take 4 tablets by [facility] as needed. 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, [address] FINGERSTICK GLU 187 mg/dL High 74-106 [facility] Comment on above: Result Comment: Repe at TestMANAGEMENT OF PATIENT CARE PER NURSING PROTOCOL Performed By: #### L 501.080 ####[facility] [address] [place], [address] Basic Metabolic Profile (BMP )on 05-05-2025 BUN Normal 4-19 [facility] Comment on above: Result Comment: Canc elled via OM: MD Ordered Performed By: #### L 500.2500 ####[facility] [address] [place], [address] BUN/CRE Normal 10-20 [facility] Comment on above: Result Comment: Canc elled via OM: MD Ordered Performed By: #### L 500.2500 ####[facility] [address] [place], [address] Calcium Normal 7.6-11.0 [facility] Comment on above: Result Comment: Canc elled via OM: MD Ordered Performed By: #### L 500.2500 ####[facility] [address] [place], [address] CL Normal 98-108 [facility] Comment on above: Result Comment: Canc elled via OM: MD Ordered Performed By: #### L 500.2500 ####[facility] [address] [place], [address] CO2 Normal 21.0-32.0 [facility] Comment on above: Result Comment: Canc elled via OM: MD Ordered Performed By: #### L 500.2500 ####[facility] [address] [place], [address] CREAT,SERUM Normal 0.70-1.20 [facility] Comment on above: Result Comment: Canc elled via OM: MD Ordered Performed By: #### L 500.2500 ####[facility] [address] [place], [address] eGFR Normal >60 [facility] Comment on above: Result Comment: Canc elled via OM: MD Ordered Performed By: #### L 500.2500 ####[facility] [address] [place], [address] GAP Normal 5-15 [facility] Comment on above: Result Comment: Canc elled via OM: MD Ordered Performed By: #### L 500.2500 ####[facility] [address] [place], [address] GLU Normal 70-99 [facility] Comment on above: Result Comment: Canc elled via OM: MD Ordered Performed By: #### L 500.2500 ####[facility] [address] [place], [address] Potassium Normal 3.3-5.1 [facility] Comment on above: Result Comment: Canc elled via OM: MD Ordered Performed By: #### L 500.2500 ####[facility] [address] [place], [address] Basic Metabolic Profile (BMP) Normal 133-145 [facility] Comment on above: Result Comment: Canc elled via OM: MD Ordered Performed By: #### L 500.2500 ####[facility] [address] [place], [address] BUN/CRE 16.4 RATIO Normal 10-20 [facility] Comment on above: Performed By: #### L 500.2500 ####[facility] [address] [place], [address] Calcium [Mass/Vol] 9.1 mg/dL Normal 7.6-11.0 [facility] Comment on above: Performed By: #### L 500.2500 ####[facility] [address] [place], [address] Chloride [Moles/Vol] 108 mmol/L Normal 98-108 [facility] Comment on above: Performed By: #### L 500.2500 ####[facility] [address] [place], [address] CO2 [Moles/Vol] 19.2 mmol/L Low 21.0-32.0 [facility] Comment on above: Performed By: #### L 500.2500 ####[facility] [address] [place], [address] Creatinine [Mass/Vol] 0.65 mg/dL Low 0.70-1.20 [facility] Comment on above: Performed By: #### L 500.2500 ####[facility] [address] [place], [address] ECRCL 132.26 ml/min Normal 50-250 [facility] Comment on above: Performed By: #### L 500.2500 ####[facility] [address] [place], [address] GAP 13 Normal 5-15 [facility] Comment on above: Performed By: #### L 500.2500 ####[facility] [address] [place], [address] GFR/1.73 sq M.predicted among non-blacks MDRD (S/P/Bld) [Vol rate/Area] 122 mL/min/{1.73_m2} Normal >60 [facility] Comment on above: Result Comment: mL/m in/1.73m2 CKD-EPI Creatinine Equation (2020) Performed By: #### L 500.2500 ####[facility] [address] [place], [address] Glucose [Mass/Vol] 85 mg/dL Normal 70-99 [facility] Comment on above: Performed By: #### L 500.2500 ####[facility] [address] [place], [address] Potassium [Moles/Vol] 3.8 mmol/L Normal 3.3-5.1 [facility] Comment on above: Performed By: #### L 500.2500 ####[facility] [address] [place], [address] Sodium [Moles/Vol] 140 mmol/L Normal 133-145 [facility] Comment on above: Performed By: #### L 500.2500 ####[facility] [address] [place], [address] Urea nitrogen [Mass/Vol] 11 mg/dL Normal 4-19 [facility] Comment on above: Performed By: #### L 500.2500 ####[facility] [address] [place], [address] Bedside Glucoseon 05-05-2024 FINGERSTICK GLU 74 mg/dL Normal 74-106 [facility] Comment on above: Result Comment: EDGAR HUNG OF PATIENT CARE PER NURSING PROTOCOL Performed By: #### L 501.080 ####[facility] [address] [place], [address] CBC W/Diff, Automatedon 09-0 Absolute Lymph 2.59 X10 3/uL Normal 0.83-4.51 [facility] Comment on above: Performed By: #### L 100.0100 ####[facility] [address] [place], [address] Absolute Neut 9.3 X10 3/uL High 2.0-7.7 [facility] Comment on above: Performed By: #### L 100.0100 ####[facility] [address] [place], [address] Basophils/100 WBC (Bld) 0.3 % Normal 0-1 [facility] Comment on above: Performed By: #### L 100.0100 ####[facility] [address] [place], [address] Eosinophils/100 WBC (Bld) 0.2 % Normal 0-5 [facility] Comment on above: Performed By: #### L 100.0100 ####[facility] [address] [place], [address] Erythrocyte distribution width (RBC) [Ratio] 13.6 % Normal 11.6-14.6 [facility] Comment on above: Performed By: #### L 100.0100 ####[facility] [address] [place], [address] Hematocrit (Bld) [Volume fraction] 37.9 % Normal 37-47 [facility] Comment on above: Performed By: #### L 100.0100 ####[facility] [address] [place], [address] Hemoglobin (Bld) [Mass/Vol] 12.8 g/dL Normal 12.0-15.0 [facility] Comment on above: Performed By: #### L 100.0100 ####[facility] [address] [place], [address] IG% 0.500 Normal 0.0-0.9 [facility] Comment on above: Result Comment: IG% - Immature Granulocytes (promyelocytes, myelocytes andmetamyelocytes) > 1% indicates that a LEFT SHIFT is Present. Performed By: #### L 100.0100 ####[facility] [address] [place], [address] Lymphocytes/100 WBC (Bld) 20.3 % Normal 19-41 [facility] Comment on above: Performed By: #### L 100.0100 ####[facility] [address] [place], [address] MCH (RBC) [Entitic mass] 30.0 pg Normal 27.0-32.0 [facility] Comment on above: Performed By: #### L 100.0100 ####[facility] [address] [place], [address] MCHC (RBC) [Mass/Vol] 33.8 g/dL Normal 32-36 [facility] Comment on above: Performed By: #### L 100.0100 ####[facility] [address] [place], [address] MCV (RBC) [Entitic vol] 89.0 fL Normal 81-99 [facility] Comment on above: Performed By: #### L 100.0100 ####[facility] [address] [place], [address] Monocytes/100 WBC (Bld) 5.7 % Normal 0-10 [facility] Comment on above: Performed By: #### L 100.0100 ####[facility] [address] [place], [address] Neutrophils/100 WBC (Bld) 73.0 % High 47-70 [facility] Comment on above: Performed By: #### L 100.0100 ####[facility] [address] [place], [address] Nucleated RBC (Bld) [#/Vol] 0 10*3/uL Normal 0-5 [facility] Comment on above: Performed By: #### L 100.0100 ####[facility] [address] [place], [address] Platelet mean volume (Bld) [Entitic vol] 11.9 fL Normal 6.2-12.0 [facility] Comment on above: Performed By: #### L 100.0100 ####[facility] [address] [place], [address] Platelets (Bld) [#/Vol] 170 10*3/uL Normal 150-450 [facility] Comment on above: Performed By: #### L 100.0100 ####[facility] [address] [place], [address] RBC (Bld) [#/Vol] 4.26 10*6/uL Normal 4.2-5.4 [facility] Comment on above: Performed By: #### L 100.0100 ####[facility] [address] [place], [address] RDW SD 44.3 fl High 35.1-43.9 [facility] Comment on above: Performed By: #### L 100.0100 ####[facility] [address] [place], [address] WBC (Bld) [#/Vol] 12.7 10*3/uL High 4.4-11.0 [facility] Comment on above: Performed By: #### L 100.0100 ####[facility] [address] [place], [address] Discharge Instructionon 09-0 Discharge Instruction Normal [facility] Basic Metabolic Profile (BMP )on 05-04-2025 BUN/CRE 13.3 RATIO Normal 10-20 [facility] Comment on above: Performed By: #### L 501.2300, L500.2500 ####[facility] [address] [place], [address] Calcium [Mass/Vol] 9.0 mg/dL Normal 7.6-11.0 [facility] Comment on above: Performed By: #### L 501.2300, L500.2500 ####[facility] [address] [place], [address] Chloride [Moles/Vol] 107 mmol/L Normal 98-108 [facility] Comment on above: Performed By: #### L 501.2300, L500.2500 ####[facility] [address] [place], [address] CO2 [Moles/Vol] 19.1 mmol/L Low 21.0-32.0 [facility] Comment on above: Performed By: #### L 501.2300, L500.2500 ####[facility] [address] [place], [address] Creatinine [Mass/Vol] 0.61 mg/dL Low 0.70-1.20 [facility] Comment on above: Performed By: #### L 501.2300, L500.2500 ####[facility] [address] [place], [address] ECRCL 140.93 ml/min Normal 50-250 [facility] Comment on above: Performed By: #### L 501.2300, L500.2500 ####[facility] [address] [place], [address] GAP 11 Normal 5-15 [facility] Comment on above: Performed By: #### L 501.2300, L500.2500 ####[facility] [address] [place], [address] GFR/1.73 sq M.predicted among non-blacks MDRD (S/P/Bld) [Vol rate/Area] 123 mL/min/{1.73_m2} Normal >60 [facility] Comment on above: Result Comment: mL/m in/1.73m2 CKD-EPI Creatinine Equation (2020) Performed By: #### L 501.2300, L500.2500 ####[facility] [address] [place], [address] Glucose [Mass/Vol] 163 mg/dL High 70-99 [facility] Comment on above: Performed By: #### L 501.2300, L500.2500 ####[facility] [address] [place], [address] Potassium [Moles/Vol] 4.3 mmol/L Normal 3.3-5.1 [facility] Comment on above: Result Comment: Hemo lysis present, Results??could be affected.?? Performed By: #### L 501.2300, L500.2500 ####[facility] [address] [place], [address] Sodium [Moles/Vol] 137 mmol/L Normal 133-145 [facility] Comment on above: Performed By: #### L 501.2300, L500.2500 ####[facility] [address] [place], [address] Urea nitrogen [Mass/Vol] 8 mg/dL Normal 4-19 [facility] Comment on above: Performed By: #### L 501.2300, L500.2500 ####[facility] [address] [place], [address] BUN/CRE 13.2 RATIO Normal 10-20 [facility] Comment on above: Order Comment: REDRA W. PREVIOUS SPECIMEN REJECTED DUE TOQNS. 05/04/25 1307 Performed By: #### L 500.2500 ####[facility] [address] [place], [address] Calcium [Mass/Vol] 8.8 mg/dL Normal 7.6-11.0 [facility] Comment on above: Order Comment: REDRA W. PREVIOUS SPECIMEN REJECTED DUE TOQNS. 05/04/25 1307 Performed By: #### L 500.2500 ####[facility] [address] [place], [address] Chloride [Moles/Vol] 105 mmol/L Normal 98-108 [facility] Comment on above: Order Comment: REDRA W. PREVIOUS SPECIMEN REJECTED DUE TOQNS. 05/04/25 1307 Performed By: #### L 500.2500 ####[facility] [address] [place], [address] CO2 [Moles/Vol] 17.4 mmol/L Low 21.0-32.0 [facility] Comment on above: Order Comment: REDRA W. PREVIOUS SPECIMEN REJECTED DUE TOQNS. 05/04/25 1307 Performed By: #### L 500.2500 ####[facility] [address] [place], [address] Creatinine [Mass/Vol] 0.63 mg/dL Low 0.70-1.20 [facility] Comment on above: Order Comment: REDRA W. PREVIOUS SPECIMEN REJECTED DUE TOQNS. 05/04/251306 Performed By: #### L 500.2500 ####[facility] [address] [place], [address] ECRCL 136.46 ml/min Normal 50-250 [facility] Comment on above: Order Comment: REDRA W. PREVIOUS SPECIMEN REJECTED DUE TOQNS. 05/04/251306 Performed By: #### L 500.2500 ####[facility] [address] [place], [address] GAP 13 Normal 5-15 [facility] Comment on above: Order Comment: REDRA W. PREVIOUS SPECIMEN REJECTED DUE TOQNS. 05/04/251306 Performed By: #### L 500.2500 ####[facility] [address] [place], [address] GFR/1.73 sq M.predicted among non-blacks MDRD (S/P/Bld) [Vol rate/Area] 122 mL/min/{1.73_m2} Normal >60 [facility] Comment on above: Order Comment: REDRA W. PREVIOUS SPECIMEN REJECTED DUE TOQNS. 05/04/251306 Result Comment: mL/m in/1.73m2 CKD-EPI Creatinine Equation (2020) Performed By: #### L 500.2500 ####[facility] [address] [place], [address] Glucose [Mass/Vol] 150 mg/dL High 70-99 [facility] Comment on above: Order Comment: REDRA W. PREVIOUS SPECIMEN REJECTED DUE TOQNS. 05/04/25 1307 Performed By: #### L 500.2500 ####[facility] [address] [place], [address] Potassium [Moles/Vol] 3.8 mmol/L Normal 3.3-5.1 [facility] Comment on above: Order Comment: REDRA W. PREVIOUS SPECIMEN REJECTED DUE TOQNS. 05/04/25 1307 Performed By: #### L 500.2500 ####[facility] [address] [place], [address] Sodium [Moles/Vol] 136 mmol/L Normal 133-145 [facility] Comment on above: Order Comment: REDRA W. PREVIOUS SPECIMEN REJECTED DUE TOQNS. 05/04/25 1307 Performed By: #### L 500.2500 ####[facility] [address] [place], [address] Urea nitrogen [Mass/Vol] 8 mg/dL Normal 4-19 [facility] Comment on above: Order Comment: REDRA W. PREVIOUS SPECIMEN REJECTED DUE TOQNS. 05/04/25 1307 Performed By: #### L 500.2500 ####[facility] [address] [place], [address] BUN Normal 4-19 [facility] Comment on above: Result Comment: Mary sanchez via OM: Ordered Performed By: #### L 500.2500 ####[facility] [address] [place], [address] Result Comment: This specimen has been REJECTED due to Laboratory criteria:Quanity Not Sufficient.ICU has been notified of need of recollection.05/04/25 1306 BUN/CRE Normal 10-20 [facility] Comment on above: Result Comment: Canc elled via OM: MD Ordered Performed By: #### L 500.2500 ####[facility] [address] [place], [address] Result Comment: This specimen has been REJECTED due to Laboratory criteria:Quanity Not Sufficient.ICU has been notified of need of recollection.05/04/25 1306 Calcium Normal 7.6-11.0 [facility] Comment on above: Result Comment: Canc elled via OM: MD Ordered Performed By: #### L 500.2500 ####[facility] [address] [place], [address] Result Comment: This specimen has been REJECTED due to Laboratory criteria:Quanity Not Sufficient.ICU has been notified of need of recollection.05/04/25 1306 CL Normal 98-108 [facility] Comment on above: Result Comment: Canc elled via OM: MD Ordered Performed By: #### L 500.2500 ####[facility] [address] [place], [address] Result Comment: LYTE S IN BMP ORDER, PHOS ADDED TO BMP ORDER Performed By: #### L 501.5294 ####[facility] [address] [place], [address] Result Comment: NO S PECIMEN COLLECTED. RHEA C67 AT 0410 Result Comment: This specimen has been REJECTED due to Laboratory criteria:Quanity Not Sufficient.ICU has been notified of need of recollection.05/04/25 1306 Result Comment: ADDE D TO DIFFERENT REQU CO2 Normal 21.0-32.0 [facility] Comment on above: Result Comment: Canc elled via OM: MD Ordered Performed By: #### L 500.2500 ####[facility] [address] [place], [address] Result Comment: LYTE S IN BMP ORDER, PHOS ADDED TO BMP ORDER Performed By: #### L 501.5294 ####[facility] [address] [place], [address] Result Comment: NO S PECIMEN COLLECTED. RHEA C67 AT 0410 Result Comment: This specimen has been REJECTED due to Laboratory criteria:Quanity Not Sufficient.ICU has been notified of need of recollection.05/04/25 1306 Result Comment: ADDE D TO DIFFERENT REQU CREAT,SERUM Normal 0.70-1.20 [facility] Comment on above: Result Comment: Canc elled via OM: MD Ordered Performed By: #### L 500.2500 ####[facility] [address] [place], [address] Result Comment: This specimen has been REJECTED due to Laboratory criteria:Quanity Not Sufficient.ICU has been notified of need of recollection.05/04/25 1306 eGFR Normal >60 [facility] Comment on above: Result Comment: Canc elled via OM: MD Ordered Performed By: #### L 500.2500 ####[facility] [address] [place], [address] Result Comment: This specimen has been REJECTED due to Laboratory criteria:Quanity Not Sufficient.ICU has been notified of need of recollection.05/04/25 1306 GAP Normal 5-15 [facility] Comment on above: Result Comment: Canc elled via OM: MD Ordered Performed By: #### L 500.2500 ####[facility] [address] [place], [address] Result Comment: LYTE S IN BMP ORDER, PHOS ADDED TO BMP ORDER Performed By: #### L 501.5294 ####[facility] [address] [place], [address] Result Comment: NO S PECIMEN COLLECTED. RHEA C67 AT 0410 Result Comment: This specimen has been REJECTED due to Laboratory criteria:Quanity Not Sufficient.ICU has been notified of need of recollection.05/04/25 1306 Result Comment: ADDE D TO DIFFERENT REQU GLU Normal 70-99 [facility] Comment on above: Result Comment: Canc elled via OM: MD Ordered Performed By: #### L 500.2500 ####[facility] [address] [place], [address] Result Comment: This specimen has been REJECTED due to Laboratory criteria:Quanity Not Sufficient.ICU has been notified of need of recollection.05/04/25 1306 Potassium Normal 3.3-5.1 [facility] Comment on above: Result Comment: Canc elled via OM: MD Ordered Performed By: #### L 500.2500 ####[facility] [address] [place], [address] Result Comment: LYTE S IN BMP ORDER, PHOS ADDED TO BMP ORDER Performed By: #### L 501.5294 ####[facility] [address] [place], [address] Result Comment: NO S PECIMEN COLLECTED. RHEA C67 AT 0410 Result Comment: This specimen has been REJECTED due to Laboratory criteria:Quanity Not Sufficient.ICU has been notified of need of recollection.05/04/25 1306 Result Comment: ADDE D TO DIFFERENT REQU Basic Metabolic Profile (BMP) Normal 133-145 [facility] Comment on above: Result Comment: Canc elled via OM: MD Ordered Performed By: #### L 500.2500 ####[facility] [address] [place], [address] Result Comment: LYTE S IN BMP ORDER, PHOS ADDED TO BMP ORDER Performed By: #### L 501.5294 ####[facility] [address] [place], [address] Result Comment: NO S PECIMEN COLLECTED. RHEA C67 AT 0410 Result Comment: This specimen has been REJECTED due to Laboratory criteria:Quanity Not Sufficient.ICU has been notified of need of recollection.05/04/25 1306 Result Comment: ADDE D TO DIFFERENT REQU BUN/CRE 17.8 RATIO Normal 10-20 [facility] Comment on above: Performed By: #### L 500.2500, L501.6901, L501.5200 ####[facility] [address] [place], [address] Calcium [Mass/Vol] 8.8 mg/dL Normal 7.6-11.0 [facility] Comment on above: Performed By: #### L 500.2500, L501.6901, L501.5200 ####[facility] [address] [place], [address] Chloride [Moles/Vol] 102 mmol/L Normal 98-108 [facility] Comment on above: Performed By: #### L 500.2500, L501.6901, L501.5200 ####[facility] [address] [place], [address] CO2 [Moles/Vol] 17.2 mmol/L Low 21.0-32.0 [facility] Comment on above: Performed By: #### L 500.2500, L501.6901, L501.5200 ####[facility] [address] [place], [address] Creatinine [Mass/Vol] 0.57 mg/dL Low 0.70-1.20 [facility] Comment on above: Performed By: #### L 500.2500, L501.6901, L501.5200 ####[facility] [address] [place], [address] ECRCL 150.82 ml/min Normal 50-250 [facility] Comment on above: Performed By: #### L 500.2500, L501.6901, L501.5200 ####[facility] [address] [place], [address] GAP 13 Normal 5-15 [facility] Comment on above: Performed By: #### L 500.2500, L501.6901, L501.5200 ####[facility] [address] [place], [address] GFR/1.73 sq M.predicted among non-blacks MDRD (S/P/Bld) [Vol rate/Area] 125 mL/min/{1.73_m2} Normal >60 [facility] Comment on above: Result Comment: mL/m in/1.73m2 CKD-EPI Creatinine Equation (2020) Performed By: #### L 500.2500, L501.6901, L501.5200 ####[facility] [address] [place], [address] Glucose [Mass/Vol] 237 mg/dL High 70-99 [facility] Comment on above: Performed By: #### L 500.2500, L501.6901, L501.5200 ####[facility] [address] [place], [address] Potassium [Moles/Vol] 4.4 mmol/L Normal 3.3-5.1 [facility] Comment on above: Performed By: #### L 500.2500, L501.6901, L501.5200 ####[facility] [address] [place], [address] Sodium [Moles/Vol] 133 mmol/L Normal 133-145 [facility] Comment on above: Performed By: #### L 500.2500, L501.6901, L501.5200 ####[facility] [address] [place], [address] Urea nitrogen [Mass/Vol] 10 mg/dL Normal 4-19 [facility] Comment on above: Performed By: #### L 500.2500, L501.6901, L501.5200 ####[facility] [address] [place], [address] BUN/CRE 21.8 RATIO High 10-20 [facility] Comment on above: Performed By: #### L 500.2500, L100.0100, L501.2300, L501.5200 ####[facility] [address] [place], [address] Calcium [Mass/Vol] 7.4 mg/dL Low 7.6-11.0 [facility] Comment on above: Performed By: #### L 500.2500, L100.0100, L501.2300, L501.5200 ####[facility] [address] [place], [address] Chloride [Moles/Vol] 108 mmol/L Normal 98-108 [facility] Comment on above: Performed By: #### L 500.2500, L100.0100, L501.2300, L501.5200 ####[facility] [address] [place], [address] CO2 [Moles/Vol] 13.0 mmol/L Low 21.0-32.0 [facility] Comment on above: Performed By: #### L 500.2500, L100.0100, L501.2300, L501.5200 ####[facility] [address] [place], [address] Creatinine [Mass/Vol] 0.49 mg/dL Low 0.70-1.20 [facility] Comment on above: Performed By: #### L 500.2500, L100.0100, L501.2300, L501.5200 ####[facility] [address] [place], [address] ECRCL 196.75 ml/min Normal 50-250 [facility] Comment on above: Performed By: #### L 500.2500, L100.0100, L501.2300, L501.5200 ####[facility] [address] [place], [address] GAP 14 Normal 5-15 [facility] Comment on above: Performed By: #### L 500.2500, L100.0100, L501.2300, L501.5200 ####[facility] [address] [place], [address] GFR/1.73 sq M.predicted among non-blacks MDRD (S/P/Bld) [Vol rate/Area] 130 mL/min/{1.73_m2} Normal >60 [facility] Comment on above: Result Comment: mL/m in/1.73m2 CKD-EPI Creatinine Equation (2020) Performed By: #### L 500.2500, L100.0100, L501.2300, L501.5200 ####[facility] [address] [place], [address] Glucose [Mass/Vol] 193 mg/dL High 70-99 [facility] Comment on above: Performed By: #### L 500.2500, L100.0100, L501.2300, L501.5200 ####[facility] [address] [place], [address] Potassium [Moles/Vol] 3.9 mmol/L Normal 3.3-5.1 [facility] Comment on above: Performed By: #### L 500.2500, L100.0100, L501.2300, L501.5200 ####[facility] [address] [place], [address] Sodium [Moles/Vol] 135 mmol/L Normal 133-145 [facility] Comment on above: Performed By: #### L 500.2500, L100.0100, L501.2300, L501.5200 ####[facility] [address] [place], [address] Urea nitrogen [Mass/Vol] 11 mg/dL Normal 4-19 [facility] Comment on above: Performed By: #### L 500.2500, L100.0100, L501.2300, L501.5200 ####[facility] [address] [place], [address] Bedside Glucoseon 05-04-2025 FINGERSTICK GLU 209 mg/dL High 74-106 [facility] Comment on above: Result Comment: EDGAR GEMENT OF PATIENT CARE PER NURSING PROTOCOL Performed By: #### L 501.080 ####[facility] [address] [place], [address] FINGERSTICK GLU 274 mg/dL High 74-106 [facility] Comment on above: Result Comment: EDGAR GEMENT OF PATIENT CARE PER NURSING PROTOCOL Performed By: #### L 501.080 ####[facility] [address] [place], [address] FINGERSTICK GLU 271 mg/dL High [address] [place] [address] Comment on above: Result Comment: EDGAR GEMENT OF PATIENT CARE PER NURSING PROTOCOL Performed By: #### L 501.080 ####[facility] [address] [place], [address] FINGERSTICK GLU 137 mg/dL High -106 [facility] Comment on above: Result Comment: EDGAR GEMENT OF PATIENT CARE PER NURSING PROTOCOL Performed By: #### L 501.080 ####[facility] [address] [place], [address] FINGERSTICK GLU 133 mg/dL High 74-106 [facility] Comment on above: Result Comment: EDGAR GEMENT OF PATIENT CARE PER NURSING PROTOCOL Performed By: #### L 501.080 ####[facility] [address] [place], [address] FINGERSTICK GLU 130 mg/dL High -106 [facility] Comment on above: Result Comment: EDGAR GEMENT OF PATIENT CARE PER NURSING PROTOCOL Performed By: #### L 501.080 ####[facility] [address] [place], [address] FINGERSTICK GLU 142 mg/dL High 74-106 [facility] Comment on above: Result Comment: EDGAR GEMENT OF PATIENT CARE PER NURSING PROTOCOL Performed By: #### L 501.080 ####[facility] [address] [place], [address] FINGERSTICK GLU 185 mg/dL High 74-106 [facility] Comment on above: Result Comment: EDGAR GEMENT OF PATIENT CARE PER NURSING PROTOCOL Performed By: #### L 501.080 ####[facility] [address] [place], [address] FINGERSTICK GLU 171 mg/dL High 74-106 [facility] Comment on above: Result Comment: EDGAR GEMENT OF PATIENT CARE PER NURSING PROTOCOL Performed By: #### L 501.080 ####[facility] [address] [place], [address] FINGERSTICK GLU 204 mg/dL High 74-106 [facility] Comment on above: Result Comment: EDGAR GEMENT OF PATIENT CARE PER NURSING PROTOCOL Performed By: #### L 501.080 ####[facility] [address] [place], [address] FINGERSTICK GLU 207 mg/dL High 74-106 [facility] Comment on above: Result Comment: EDGAR GEMENT OF PATIENT CARE PER NURSING PROTOCOL Performed By: #### L 501.080 ####[facility] [address] [place], [address] FINGERSTICK GLU 224 mg/dL High 74-106 [facility] Comment on above: Result Comment: EDGAR GEMENT OF PATIENT CARE PER NURSING PROTOCOL Performed By: #### L 501.080 ####[facility] [address] [place], [address] FINGERSTICK GLU 218 mg/dL High 74-106 [facility] Comment on above: Result Comment: EDGAR GEMENT OF PATIENT CARE PER NURSING PROTOCOL Performed By: #### L 501.080 ####[facility] [address] [place], [address] FINGERSTICK GLU 160 mg/dL High 74-106 [facility] Comment on above: Result Comment: EDGAR GEMENT OF PATIENT CARE PER NURSING PROTOCOL Performed By: #### L 501.080 ####[facility] [address] [place], [address] FINGERSTICK GLU 190 mg/dL High 74-106 [facility] Comment on above: Result Comment: EDGAR GEMENT OF PATIENT CARE PER NURSING PROTOCOL Performed By: #### L 501.080 ####[facility] [address] [place], [address] FINGERSTICK GLU 186 mg/dL High 74-106 [facility] Comment on above: Result Comment: EDGAR GEMENT OF PATIENT CARE PER NURSING PROTOCOL Performed By: #### L 501.080 ####[facility] [address] [place], [address] FINGERSTICK GLU 186 mg/dL High -106 [facility] Comment on above: Result Comment: EDGAR GEMENT OF PATIENT CARE PER NURSING PROTOCOL Performed By: #### L 501.080 ####[facility] [address] [place], [address] Beta-Hydroxbytyrateon 2024 BETA-HYDROXYBUT 2.6 mmol/L High 0.0-0.3 [facility] Comment on above: Performed By: #### L 500.2500, L501.6901, L501.5200 ####[facility] [address] [place], [address] CBC W/Diff, Automatedon 09-0 Absolute Lymph 0.63 X10 3/uL Low 0.83-4.51 [facility] Comment on above: Performed By: #### L 500.2500, L100.0100, L501.2300, L501.5200 ####[facility] [address] [place], [address] Absolute Neut 11.4 X10 3/uL High 2.0-7.7 [facility] Comment on above: Performed By: #### L 500.2500, L100.0100, L501.2300, L501.5200 ####[facility] [address] [place], [address] Basophils/100 WBC (Bld) 0.1 % Normal 0-1 [facility] Comment on above: Performed By: #### L 500.2500, L100.0100, L501.2300, L501.5200 ####[facility] [address] [place], [address] Eosinophils/100 WBC (Bld) 0.0 % Normal 0-5 [facility] Comment on above: Performed By: #### L 500.2500, L100.0100, L501.2300, L501.5200 ####[facility] [address] [place], [address] Erythrocyte distribution width (RBC) [Ratio] 13.3 % Normal 11.6-14.6 [facility] Comment on above: Performed By: #### L 500.2500, L100.0100, L501.2300, L501.5200 ####[facility] [address] [place], [address] Hematocrit (Bld) [Volume fraction] 35.3 % Low 37-47 [facility] Comment on above: Performed By: #### L 500.2500, L100.0100, L501.2300, L501.5200 ####[facility] [address] [place], [address] Hemoglobin (Bld) [Mass/Vol] 11.6 g/dL Low 12.0-15.0 [facility] Comment on above: Performed By: #### L 500.2500, L100.0100, L501.2300, L501.5200 ####[facility] [address] [place], [address] IG% 0.400 Normal 0.0-0.9 [facility] Comment on above: Result Comment: IG% - Immature Granulocytes (promyelocytes, myelocytes andmetamyelocytes) > 1% indicates that a LEFT SHIFT is Present. Performed By: #### L 500.2500, L100.0100, L501.2300, L501.5200 ####[facility] [address] [place], [address] Lymphocytes/100 WBC (Bld) 5.2 % Low 19-41 [facility] Comment on above: Performed By: #### L 500.2500, L100.0100, L501.2300, L501.5200 ####[facility] [address] [place], [address] MCH (RBC) [Entitic mass] 29.2 pg Normal 27.0-32.0 [facility] Comment on above: Performed By: #### L 500.2500, L100.0100, L501.2300, L501.5200 ####[facility] [address] [place], [address] MCHC (RBC) [Mass/Vol] 32.9 g/dL Normal 32-36 [facility] Comment on above: Performed By: #### L 500.2500, L100.0100, L501.2300, L501.5200 ####[facility] [address] [place], [address] MCV (RBC) [Entitic vol] 88.9 fL Normal 81-99 [facility] Comment on above: Performed By: #### L 500.2500, L100.0100, L501.2300, L501.5200 ####[facility] [address] [place], [address] Monocytes/100 WBC (Bld) 1.3 % Normal 0-10 [facility] Comment on above: Performed By: #### L 500.2500, L100.0100, L501.2300, L501.5200 ####[facility] [address] [place], [address] Neutrophils/100 WBC (Bld) 93.0 % High 47-70 [facility] Comment on above: Performed By: #### L 500.2500, L100.0100, L501.2300, L501.5200 ####[facility] [address] [place], [address] Nucleated RBC (Bld) [#/Vol] 0 10*3/uL Normal 0-5 [facility] Comment on above: Performed By: #### L 500.2500, L100.0100, L501.2300, L501.5200 ####[facility] [address] [place], [address] Platelet mean volume (Bld) [Entitic vol] 12.7 fL High 6.2-12.0 [facility] Comment on above: Performed By: #### L 500.2500, L100.0100, L501.2300, L501.5200 ####[facility] [address] [place], [address] Platelets (Bld) [#/Vol] 133 10*3/uL Low 150-450 [facility] Comment on above: Performed By: #### L 500.2500, L100.0100, L501.2300, L501.5200 ####[facility] [address] [place], [address] RBC (Bld) [#/Vol] 3.97 10*6/uL Low 4.2-5.4 [facility] Comment on above: Performed By: #### L 500.2500, L100.0100, L501.2300, L501.5200 ####[facility] [address] [place], [address] RDW SD 43.7 fl Normal 35.1-43.9 [facility] Comment on above: Performed By: #### L 500.2500, L100.0100, L501.2300, L501.5200 ####[facility] [address] [place], [address] WBC (Bld) [#/Vol] 12.2 10*3/uL High 4.4-11.0 [facility] Comment on above: Performed By: #### L 500.2500, L100.0100, L501.2300, L501.5200 ####[facility] [address] [place], [address] Electrolyte Panelon 05-04-20 25 Chloride [Moles/Vol] 105 mmol/L Normal 98-108 [facility] Comment on above: Performed By: #### L 501.5200, L501.5294, L501.2300 ####[facility] [address] [place], [address] CO2 [Moles/Vol] 16.5 mmol/L Low 21.0-32.0 [facility] Comment on above: Performed By: #### L 501.5200, L501.5294, L501.2300 ####[facility] [address] [place], [address] GAP 15 Normal 5-15 [facility] Comment on above: Performed By: #### L 501.5200, L501.5294, L501.2300 ####[facility] [address] [place], [address] Potassium [Moles/Vol] 4.0 mmol/L Normal 3.3-5.1 [facility] Comment on above: Performed By: #### L 501.5200, L501.5294, L501.2300 ####[facility] [address] [place], [address] Sodium [Moles/Vol] 136 mmol/L Normal 133-145 [facility] Comment on above: Performed By: #### L 501.5200, L501.5294, L501.2300 ####[facility] [address] [place], [address] Magnesiumon 05-04-2025 Magnesium [Mass/Vol] 2.0 mg/dL Normal 1.5-2.2 [facility] Comment on above: Performed By: #### L 500.2500, L501.6901, L501.5200 ####[facility] [address] [place], [address] Magnesium [Mass/Vol] 1.8 mg/dL Normal 1.5-2.2 [facility] Comment on above: Performed By: #### L 500.2500, L100.0100, L501.2300, L501.5200 ####[facility] [address] [place], [address] Magnesium [Mass/Vol] 2.0 mg/dL Normal 1.5-2.2 [facility] Comment on above: Performed By: #### L 501.5200, L501.5294, L501.2300 ####[facility] [address] [place], [address] Phosphoruson 05-04-2025 Phosphate [Mass/Vol] 2.2 mg/dL Low 2.7-4.5 [facility] Comment on above: Performed By: #### L 501.2300, L500.2500 ####[facility] [address] [place], [address] Phosphate [Mass/Vol] 2.0 mg/dL Low 2.7-4.5 [facility] Comment on above: Performed By: #### L 501.2300 ####[facility] [address] [place], [address] Phosphate [Mass/Vol] 1.9 mg/dL Low 2.7-4.5 [facility] Comment on above: Performed By: #### L 500.2500, L100.0100, L501.2300, L501.5200 ####[facility] [address] [place], [address] Phosphate [Mass/Vol] 2.2 mg/dL Low 2.7-4.5 [facility] Comment on above: Performed By: #### L 501.5200, L501.5294, L501.2300 ####[facility] [address] [place], [address] 12 Lead EKGon 05-03-2025 12 Lead EKG Normal [facility] Basic Metabolic Profile (BMP )on 05-03-2025 BUN/CRE 21.6 RATIO High 10-20 [facility] Comment on above: Performed By: #### L 501.6901, L100.0100, L500.2500, L501.5200 ####[facility] [address] [place], [address] Calcium [Mass/Vol] 9.7 mg/dL Normal 7.6-11.0 [facility] Comment on above: Performed By: #### L 501.6901, L100.0100, L500.2500, L501.5200 ####[facility] [address] [place], [address] Chloride [Moles/Vol] 99 mmol/L Normal 98-108 [facility] Comment on above: Performed By: #### L 501.6901, L100.0100, L500.2500, L501.5200 ####[facility] [address] [place], [address] CO2 [Moles/Vol] 12.8 mmol/L Low 21.0-32.0 [facility] Comment on above: Performed By: #### L 501.6901, L100.0100, L500.2500, L501.5200 ####[facility] [address] [place], [address] Creatinine [Mass/Vol] 0.80 mg/dL Normal 0.70-1.20 [facility] Comment on above: Performed By: #### L 501.6901, L100.0100, L500.2500, L501.5200 ####[facility] [address] [place], [address] GAP 22 High 5-15 [facility] Comment on above: Performed By: #### L 501.6901, L100.0100, L500.2500, L501.5200 ####[facility] [address] [place], [address] GFR/1.73 sq M.predicted among non-blacks MDRD (S/P/Bld) [Vol rate/Area] 102 mL/min/{1.73_m2} Normal >60 [facility] Comment on above: Result Comment: mL/m in/1.73m2 CKD-EPI Creatinine Equation (2020) Performed By: #### L 501.6901, L100.0100, L500.2500, L501.5200 ####[facility] [address] [place], [address] Glucose [Mass/Vol] 314 mg/dL High 70-99 [facility] Comment on above: Performed By: #### L 501.6901, L100.0100, L500.2500, L501.5200 ####[facility] [address] [place], [address] Potassium [Moles/Vol] 4.2 mmol/L Normal 3.3-5.1 [facility] Comment on above: Performed By: #### L 501.6901, L100.0100, L500.2500, L501.5200 ####[facility] [address] [place], [address] Sodium [Moles/Vol] 133 mmol/L Normal 133-145 [facility] Comment on above: Performed By: #### L 501.6901, L100.0100, L500.2500, L501.5200 ####[facility] [address] [place], [address] Urea nitrogen [Mass/Vol] 17 mg/dL Normal 4-19 [facility] Comment on above: Performed By: #### L 501.6901, L100.0100, L500.2500, L501.5200 ####[facility] [address] [place], [address] Bedside Glucoseon 05-03-2025 FINGERSTICK GLU 188 mg/dL High 74-106 [facility] Comment on above: Result Comment: EDGAR GEMENT OF PATIENT CARE PER NURSING PROTOCOL Performed By: #### L 501.080 ####[facility] [address] [place], [address] FINGERSTICK GLU 242 mg/dL High 74-106 [facility] Comment on above: Result Comment: EDGAR GEMENT OF PATIENT CARE PER NURSING PROTOCOL Performed By: #### L 501.080 ####[facility] [address] [place], [address] FINGERSTICK GLU 303 mg/dL High 74-106 [facility] Comment on above: Result Comment: EDGAR GEMENT OF PATIENT CARE PER NURSING PROTOCOL Performed By: #### L 501.080 ####[facility] [address] [place], [address] FINGERSTICK GLU 287 mg/dL High 74-106 [facility] Comment on above: Result Comment: EDGAR GEMENT OF PATIENT CARE PER NURSING PROTOCOL Performed By: #### L 501.080 ####[facility] [address] [place], [address] Beta-Hydroxbytyrateon 2024 BETA-HYDROXYBUT 3.2 mmol/L High 0.0-0.3 [facility] Comment on above: Performed By: #### L 501.6901, L100.0100, L500.2500, L501.5200 ####[facility] [address] [place], [address] CBC W/Diff, Automatedon Absolute Lymph 1.71 X10 3/uL Normal 0.83-4.51 [facility] Comment on above: Performed By: #### L 501.6901, L100.0100, L500.2500, L501.5200 ####[facility] [address] [place], [address] Absolute Neut 14.0 X10 3/uL High 2.0-7.7 [facility] Comment on above: Performed By: #### L 501.6901, L100.0100, L500.2500, L501.5200 ####[facility] [address] [place], [address] Basophils/100 WBC (Bld) 0.4 % Normal 0-1 [facility] Comment on above: Performed By: #### L 501.6901, L100.0100, L500.2500, L501.5200 ####[facility] [address] [place], [address] Eosinophils/100 WBC (Bld) 0.0 % Normal 0-5 [facility] Comment on above: Performed By: #### L 501.6901, L100.0100, L500.2500, L501.5200 ####[facility] [address] [place], [address] Erythrocyte distribution width (RBC) [Ratio] 13.3 % Normal 11.6-14.6 [facility] Comment on above: Performed By: #### L 501.6901, L100.0100, L500.2500, L501.5200 ####[facility] [address] [place], [address] Hematocrit (Bld) [Volume fraction] 42.6 % Normal 37-47 [facility] Comment on above: Performed By: #### L 501.6901, L100.0100, L500.2500, L501.5200 ####[facility] [address] [place], [address] Hemoglobin (Bld) [Mass/Vol] 14.5 g/dL Normal 12.0-15.0 [facility] Comment on above: Performed By: #### L 501.6901, L100.0100, L500.2500, L501.5200 ####[facility] [address] [place], [address] IG% 0.500 Normal 0.0-0.9 [facility] Comment on above: Result Comment: IG% - Immature Granulocytes (promyelocytes, myelocytes andmetamyelocytes) > 1% indicates that a LEFT SHIFT is Present. Performed By: #### L 501.6901, L100.0100, L500.2500, L501.5200 ####[facility] [address] [place], [address] Lymphocytes/100 WBC (Bld) 10.4 % Low 19-41 [facility] Comment on above: Performed By: #### L 501.6901, L100.0100, L500.2500, L501.5200 ####[facility] [address] [place], [address] MCH (RBC) [Entitic mass] 29.6 pg Normal 27.0-32.0 [facility] Comment on above: Performed By: #### L 501.6901, L100.0100, L500.2500, L501.5200 ####[facility] [address] [place], [address] MCHC (RBC) [Mass/Vol] 34.0 g/dL Normal 32-36 [facility] Comment on above: Performed By: #### L 501.6901, L100.0100, L500.2500, L501.5200 ####[facility] [address] [place], [address] MCV (RBC) [Entitic vol] 86.9 fL Normal 81-99 [facility] Comment on above: Performed By: #### L 501.6901, L100.0100, L500.2500, L501.5200 ####[facility] [address] [place], [address] Monocytes/100 WBC (Bld) 3.0 % Normal 0-10 [facility] Comment on above: Performed By: #### L 501.6901, L100.0100, L500.2500, L501.5200 ####[facility] [address] [place], [address] Neutrophils/100 WBC (Bld) 85.7 % High 47-70 [facility] Comment on above: Performed By: #### L 501.6901, L100.0100, L500.2500, L501.5200 ####[facility] [address] [place], [address] Nucleated RBC (Bld) [#/Vol] 0 10*3/uL Normal 0-5 [facility] Comment on above: Performed By: #### L 501.6901, L100.0100, L500.2500, L501.5200 ####[facility] [address] [place], [address] Platelet mean volume (Bld) [Entitic vol] 12.1 fL High 6.2-12.0 [facility] Comment on above: Performed By: #### L 501.6901, L100.0100, L500.2500, L501.5200 ####[facility] [address] [place], [address] Platelets (Bld) [#/Vol] 189 10*3/uL Normal 150-450 [facility] Comment on above: Performed By: #### L 501.6901, L100.0100, L500.2500, L501.5200 ####[facility] [address] [place], [address] RBC (Bld) [#/Vol] 4.90 10*6/uL Normal 4.2-5.4 [facility] Comment on above: Performed By: #### L 501.6901, L100.0100, L500.2500, L501.5200 ####[facility] [address] [place], [address] RDW SD 42.6 fl Normal 35.1-43.9 [facility] Comment on above: Performed By: #### L 501.6901, L100.0100, L500.2500, L501.5200 ####[facility] [address] [place], [address] WBC (Bld) [#/Vol] 16.4 10*3/uL High 4.4-11.0 [facility] Comment on above: Performed By: #### L 501.6901, L100.0100, L500.2500, L501.5200 ####[facility] [address] [place], [address] Emergency Department Summary on 05-03-2025 Emergency Department Summary Normal [facility] H AND P Exam - Hospitaliston 05-03-2025 H&P Exam - Hospitalist Normal [facility] Magnesiumon 05-03-2025 Magnesium [Mass/Vol] 2.1 mg/dL Normal 1.5-2.2 [facility] Comment on above: Performed By: #### L 501.6901, L100.0100, L500.2500, L501.5200 ####[facility] [address] [place], [address] Urinalysis, Completeon 05-03 BACTERIA RARE Normal None Seen [facility] Comment on above: Order Comment: COLLE CTOR TO SPECIFY Performed By: #### L 400.0001 ####[facility] [address] [place], [address] EPI,SQUAMOUS 5-10 SEEN Normal 5-10 [facility] Comment on above: Order Comment: COLLE CTOR TO SPECIFY Performed By: #### L 400.0001 ####[facility] [address] [place], [address] Mucus Ql (Urine sed) 0 SEEN Normal [facility] Comment on above: Order Comment: COLLE CTOR TO SPECIFY Performed By: #### L 400.0001 ####[facility] [address] [place], [address] RBC 0 SEEN Normal 0-5 [facility] Comment on above: Order Comment: COLLE CTOR TO SPECIFY Performed By: #### L 400.0001 ####[facility] [address] [place], [address] WBC 0 SEEN Normal 0-5 [facility] Comment on above: Order Comment: COLLE CTOR TO SPECIFY Performed By: #### L 400.0001 ####[facility] [address] [place], [address] CBC W/Diff, Automatedon PATH REV Reviewed Normal [facility] Comment on above: Result Comment: SEE REPORT IN PATIENT'S EMR AMENDED REPORT 03/31/25 1600 PATH REV previously reported as: May foll Performed By: #### L 100.0100, L500.4050, L501.2450, L700.6800 ####[facility] [address] [place], [address] Gastroenterology Visit Repor ton 03-31-2025 Gastroenterology Visit Report Normal [facility] Basic Metabolic Profile (BMP )on 03-19-2025 CO2 [Moles/Vol] 9.9 mmol/L Invalid Interpretation Code 21.0-32.0 [facility] Comment on above: Result Comment: Crit [...] same. Performed By: #### L 500.2500, L100.0100 ####[facility] [address] [place], [address] Bedside Glucoseon 03-19-2025 FINGERSTICK GLU 256 mg/dL High 74-106 [facility] Comment on above: Result Comment: EDGAR CURRYENT OF PATIENT CARE PER NURSING PROTOCOL Performed By: #### L 501.080 ####[facility] [address] [place], [address] CBC W/Diff, Automatedon 02-26 Absolute Lymph 1.18 X10 3/uL Normal 0.83-4.51 [facility] Comment on above: Performed By: #### L 500.2500, L100.0100 ####[facility] [address] [place], [address] Absolute Neut 15.3 X10 3/uL High 2.0-7.7 [facility] Comment on above: Performed By: #### L 500.2500, L100.0100 ####[facility] [address] [place], [address] Basophils/100 WBC (Bld) 0.3 % Normal 0-1 [facility] Comment on above: Performed By: #### L 500.2500, L100.0100 ####[facility] [address] [place], [address] Eosinophils/100 WBC (Bld) 0.0 % Normal 0-5 [facility] Comment on above: Performed By: #### L 500.2500, L100.0100 ####[facility] [address] [place], [address] Erythrocyte distribution width (RBC) [Ratio] 13.8 % Normal 11.6-14.6 [facility] Comment on above: Performed By: #### L 500.2500, L100.0100 ####[facility] [address] [place], [address] Hematocrit (Bld) [Volume fraction] 40.2 % Normal 37-47 [facility] Comment on above: Performed By: #### L 500.2500, L100.0100 ####[facility] [address] [place], [address] Hemoglobin (Bld) [Mass/Vol] 13.5 g/dL Normal 12.0-15.0 [facility] Comment on above: Performed By: #### L 500.2500, L100.0100 ####[facility] [address] [place], [address] IG% 1.100 High 0.0-0.9 [facility] Comment on above: Result Comment: IG% - Immature Granulocytes (promyelocytes, myelocytes andmetamyelocytes) > 1% indicates that a LEFT SHIFT is Present. Performed By: #### L 500.2500, L100.0100 ####[facility] [address] [place], [address] Lymphocytes/100 WBC (Bld) 6.8 % Low 19-41 [facility] Comment on above: Performed By: #### L 500.2500, L100.0100 ####[facility] [address] [place], [address] MCH (RBC) [Entitic mass] 29.3 pg Normal 27.0-32.0 [facility] Comment on above: Performed By: #### L 500.2500, L100.0100 ####[facility] [address] [place], [address] MCHC (RBC) [Mass/Vol] 33.6 g/dL Normal 32-36 [facility] Comment on above: Performed By: #### L 500.2500, L100.0100 ####[facility] [address] [place], [address] MCV (RBC) [Entitic vol] 87.4 fL Normal 81-99 [facility] Comment on above: Performed By: #### L 500.2500, L100.0100 ####[facility] [address] [place], [address] Monocytes/100 WBC (Bld) 3.2 % Normal 0-10 [facility] Comment on above: Performed By: #### L 500.2500, L100.0100 ####[facility] [address] [place], [address] Neutrophils/100 WBC (Bld) 88.6 % High 47-70 [facility] Comment on above: Performed By: #### L 500.2500, L100.0100 ####[facility] [address] [place], [address] Nucleated RBC (Bld) [#/Vol] 0 10*3/uL Normal 0-5 [facility] Comment on above: Performed By: #### L 500.2500, L100.0100 ####[facility] [address] [place], [address] Platelet mean volume (Bld) [Entitic vol] 11.7 fL Normal 6.2-12.0 [facility] Comment on above: Performed By: #### L 500.2500, L100.0100 ####[facility] [address] [place], [address] Platelets (Bld) [#/Vol] 165 10*3/uL Normal 150-450 [facility] Comment on above: Performed By: #### L 500.2500, L100.0100 ####[facility] [address] [place], [address] RBC (Bld) [#/Vol] 4.60 10*6/uL Normal 4.2-5.4 [facility] Comment on above: Performed By: #### L 500.2500, L100.0100 ####[facility] [address] [place], [address] RDW SD 43.9 fl Normal 35.1-43.9 [facility] Comment on above: Performed By: #### L 500.2500, L100.0100 ####[facility] [address] [place], [address] WBC (Bld) [#/Vol] 17.3 10*3/uL High 4.4-11.0 [facility] Comment on above: Performed By: #### L 500.2500, L100.0100 ####[facility] [address] [place], [address] Discharge Instructionon 02-26 Discharge Instruction Normal [facility] Magnesiumon 03-19-2025 Magnesium [Mass/Vol] 1.8 mg/dL Normal 1.5-2.2 [facility] Comment on above: Performed By: #### L 501.2300, L501.5200 ####[facility] [address] [place], [address] Phosphoruson 03-19-2025 Phosphate [Mass/Vol] 1.7 mg/dL Low 2.7-4.5 [facility] Comment on above: Performed By: #### L 501.2300, L501.5200 ####[facility] [address] [place], [address] Basic Metabolic Profile (BMP )on 03-18-2025 BUN/CRE 8.4 RATIO Low 10-20 [facility] Comment on above: Performed By: #### L 500.2500 ####[facility] [address] [place], [address] Calcium [Mass/Vol] 8.6 mg/dL Normal 7.6-11.0 [facility] Comment on above: Performed By: #### L 500.2500 ####[facility] [address] [place], [address] Chloride [Moles/Vol] 109 mmol/L High 98-108 [facility] Comment on above: Performed By: #### L 500.2500 ####[facility] [address] [place], [address] CO2 [Moles/Vol] 16.1 mmol/L Low 21.0-32.0 [facility] Comment on above: Performed By: #### L 500.2500 ####[facility] [address] [place], [address] Creatinine [Mass/Vol] 0.75 mg/dL Normal 0.70-1.20 [facility] Comment on above: Performed By: #### L 500.2500 ####[facility] [address] [place], [address] ECRCL 114.62 ml/min Normal 50-250 [facility] Comment on above: Performed By: #### L 500.2500 ####[facility] [address] [place], [address] GAP 12 Normal 5-15 [facility] Comment on above: Performed By: #### L 500.2500 ####[facility] [address] [place], [address] GFR/1.73 sq M.predicted among non-blacks MDRD (S/P/Bld) [Vol rate/Area] 110 mL/min/{1.73_m2} Normal >60 [facility] Comment on above: Result Comment: mL/m in/1.73m2 CKD-EPI Creatinine Equation (2020) Performed By: #### L 500.2500 ####[facility] [address] [place], [address] Glucose [Mass/Vol] 142 mg/dL High 70-99 [facility] Comment on above: Performed By: #### L 500.2500 ####[facility] [address] [place], [address] Potassium [Moles/Vol] 3.8 mmol/L Normal 3.3-5.1 [facility] Comment on above: Result Comment: Hemo lysis present, Results??could be affected.?? Performed By: #### L 500.2500 ####[facility] [address] [place], [address] Sodium [Moles/Vol] 138 mmol/L Normal 133-145 [facility] Comment on above: Performed By: #### L 500.2500 ####[facility] [address] [place], [address] Urea nitrogen [Mass/Vol] 6 mg/dL Normal 4-19 [facility] Comment on above: Performed By: #### L 500.2500 ####[facility] [address] [place], [address] BUN/CRE 9.9 RATIO Low 10-20 [facility] Comment on above: Performed By: #### L 500.2500 ####[facility] [address] [place], [address] Calcium [Mass/Vol] 8.4 mg/dL Normal 7.6-11.0 [facility] Comment on above: Performed By: #### L 500.2500 ####[facility] [address] [place], [address] Chloride [Moles/Vol] 110 mmol/L High 98-108 [facility] Comment on above: Performed By: #### L 500.2500 ####[facility] [address] [place], [address] CO2 [Moles/Vol] 14.1 mmol/L Low 21.0-32.0 [facility] Comment on above: Performed By: #### L 500.2500 ####[facility] [address] [place], [address] Creatinine [Mass/Vol] 0.74 mg/dL Normal 0.70-1.20 [facility] Comment on above: Performed By: #### L 500.2500 ####[facility] [address] [place], [address] ECRCL 116.17 ml/min Normal 50-250 [facility] Comment on above: Performed By: #### L 500.2500 ####[facility] [address] [place], [address] GAP 14 Normal 5-15 [facility] Comment on above: Performed By: #### L 500.2500 ####[facility] [address] [place], [address] GFR/1.73 sq M.predicted among non-blacks MDRD (S/P/Bld) [Vol rate/Area] 112 mL/min/{1.73_m2} Normal >60 [facility] Comment on above: Result Comment: mL/m in/1.73m2 CKD-EPI Creatinine Equation (2020) Performed By: #### L 500.2500 ####[facility] [address] [place], [address] Glucose [Mass/Vol] 187 mg/dL High 70-99 [facility] Comment on above: Performed By: #### L 500.2500 ####[facility] [address] [place], [address] Potassium [Moles/Vol] 3.9 mmol/L Normal 3.3-5.1 [facility] Comment on above: Performed By: #### L 500.2500 ####[facility] [address] [place], [address] Sodium [Moles/Vol] 138 mmol/L Normal 133-145 [facility] Comment on above: Performed By: #### L 500.2500 ####[facility] [address] [place], [address] Urea nitrogen [Mass/Vol] 7 mg/dL Normal 4-19 [facility] Comment on above: Performed By: #### L 500.2500 ####[facility] [address] [place], [address] BUN/CRE 10.8 RATIO Normal 10-20 [facility] Comment on above: Performed By: #### L 500.2500 ####[facility] [address] [place], [address] Calcium [Mass/Vol] 8.3 mg/dL Normal 7.6-11.0 [facility] Comment on above: Performed By: #### L 500.2500 ####[facility] [address] [place], [address] Chloride [Moles/Vol] 108 mmol/L Normal 98-108 [facility] Comment on above: Performed By: #### L 500.2500 ####[facility] [address] [place], [address] CO2 [Moles/Vol] 10.5 mmol/L Low 21.0-32.0 [facility] Comment on above: Performed By: #### L 500.2500 ####[facility] [address] [place], [address] Creatinine [Mass/Vol] 0.83 mg/dL Normal 0.70-1.20 [facility] Comment on above: Performed By: #### L 500.2500 ####[facility] [address] [place], [address] ECRCL 103.58 ml/min Normal 50-250 [facility] Comment on above: Performed By: #### L 500.2500 ####[facility] [address] [place], [address] GAP 17 High 5-15 [facility] Comment on above: Performed By: #### L 500.2500 ####[facility] [address] [place], [address] GFR/1.73 sq M.predicted among non-blacks MDRD (S/P/Bld) [Vol rate/Area] 98 mL/min/{1.73_m2} Normal >60 [facility] Comment on above: Result Comment: mL/m in/1.73m2 CKD-EPI Creatinine Equation (2020) Performed By: #### L 500.2500 ####[facility] [address] [place], [address] Glucose [Mass/Vol] 219 mg/dL High 70-99 [facility] Comment on above: Performed By: #### L 500.2500 ####[facility] [address] [place], [address] Potassium [Moles/Vol] 4.4 mmol/L Normal 3.3-5.1 [facility] Comment on above: Result Comment: Hemo lysis present, Results??could be affected.?? Performed By: #### L 500.2500 ####[facility] [address] [place], [address] Sodium [Moles/Vol] 136 mmol/L Normal 133-145 [facility] Comment on above: Performed By: #### L 500.2500 ####[facility] [address] [place], [address] Urea nitrogen [Mass/Vol] 9 mg/dL Normal 4-19 [facility] Comment on above: Performed By: #### L 500.2500 ####[facility] [address] [place], [address] BUN/CRE 11.7 RATIO Normal 10-20 [facility] Comment on above: Performed By: #### L 500.2500 ####[facility] [address] [place], [address] Calcium [Mass/Vol] 8.3 mg/dL Normal 7.6-11.0 [facility] Comment on above: Performed By: #### L 500.2500 ####[facility] [address] [place], [address] Chloride [Moles/Vol] 106 mmol/L Normal 98-108 [facility] Comment on above: Performed By: #### L 500.2500 ####[facility] [address] [place], [address] CO2 [Moles/Vol] 7.8 mmol/L Invalid Interpretation Code 21.0-32.0 [facility] Comment on above: Result Comment: Crit ical Result(s) Called at: 0446 by:??JULIÁN AQUINO. Results read back by same. Performed By: #### L 500.2500 ####[facility] [address] [place], [address] Creatinine [Mass/Vol] 0.94 mg/dL Normal 0.70-1.20 [facility] Comment on above: Performed By: #### L 500.2500 ####[facility] [address] [place], [address] ECRCL 91.46 ml/min Normal 50-250 [facility] Comment on above: Performed By: #### L 500.2500 ####[facility] [address] [place], [address] GAP 23 High 5-15 [facility] Comment on above: Performed By: #### L 500.2500 ####[facility] [address] [place], [address] GFR/1.73 sq M.predicted among non-blacks MDRD (S/P/Bld) [Vol rate/Area] 83 mL/min/{1.73_m2} Normal >60 [facility] Comment on above: Result Comment: mL/m in/1.73m2 CKD-EPI Creatinine Equation (2020) Performed By: #### L 500.2500 ####[facility] [address] [place], [address] Glucose [Mass/Vol] 238 mg/dL High 70-99 [facility] Comment on above: Performed By: #### L 500.2500 ####[facility] [address] [place], [address] Potassium [Moles/Vol] 4.7 mmol/L Normal 3.3-5.1 [facility] Comment on above: Result Comment: Hemo lysis present, Results??could be affected.?? Performed By: #### L 500.2500 ####[facility] [address] [place], [address] Sodium [Moles/Vol] 136 mmol/L Normal 133-145 [facility] Comment on above: Performed By: #### L 500.2500 ####[facility] [address] [place], [address] Urea nitrogen [Mass/Vol] 11 mg/dL Normal 4-19 [facility] Comment on above: Performed By: #### L 500.2500 ####[facility] [address] [place], [address] BUN/CRE 13.0 RATIO Normal 10-20 [facility] Comment on above: Performed By: #### L 500.2500 ####[facility] [address] [place], [address] Calcium [Mass/Vol] 8.0 mg/dL Normal 7.6-11.0 [facility] Comment on above: Performed By: #### L 500.2500 ####[facility] [address] [place], [address] Chloride [Moles/Vol] 102 mmol/L Normal 98-108 [facility] Comment on above: Performed By: #### L 500.2500 ####[facility] [address] [place], [address] CO2 [Moles/Vol] 6.1 mmol/L Invalid Interpretation Code 21.0-32.0 [facility] Comment on above: Result Comment: Crit ical Result(s) Called at: 0044 by:??JULIÁN AQUINO. Results read back by same. Performed By: #### L 500.2500 ####[facility] [address] [place], [address] Creatinine [Mass/Vol] 1.06 mg/dL Normal 0.70-1.20 [facility] Comment on above: Performed By: #### L 500.2500 ####[facility] [address] [place], [address] ECRCL 81.10 ml/min Normal 50-250 [facility] Comment on above: Performed By: #### L 500.2500 ####[facility] [address] [place], [address] GAP 26 High 5-15 [facility] Comment on above: Performed By: #### L 500.2500 ####[facility] [address] [place], [address] GFR/1.73 sq M.predicted among non-blacks MDRD (S/P/Bld) [Vol rate/Area] 72 mL/min/{1.73_m2} Normal >60 [facility] Comment on above: Result Comment: mL/m in/1.73m2 CKD-EPI Creatinine Equation (2020) Performed By: #### L 500.2500 ####[facility] [address] [place], [address] Glucose [Mass/Vol] 265 mg/dL High 70-99 [facility] Comment on above: Performed By: #### L 500.2500 ####[facility] [address] [place], [address] Potassium [Moles/Vol] 4.6 mmol/L Normal 3.3-5.1 [facility] Comment on above: Result Comment: Hemo lysis present, Results??could be affected.?? Performed By: #### L 500.2500 ####[facility] [address] [place], [address] Sodium [Moles/Vol] 134 mmol/L Normal 133-145 [facility] Comment on above: Performed By: #### L 500.2500 ####[facility] [address] [place], [address] Urea nitrogen [Mass/Vol] 14 mg/dL Normal 4-19 [facility] Comment on above: Performed By: #### L 500.2500 ####[facility] [address] [place], [address] Bedside Glucoseon 03-18-2025 FINGERSTICK GLU 263 mg/dL High 74-106 [facility] Comment on above: Result Comment: EDGAR HUNG OF PATIENT CARE PER NURSING PROTOCOL Performed By: #### L 501.080 ####[facility] [address] [place], [address] FINGERSTICK GLU 134 mg/dL High 74-106 [facility] Comment on above: Result Comment: EDGAR GEMENT OF PATIENT CARE PER NURSING PROTOCOL Performed By: #### L 501.080 ####[facility] [address] [place], [address] FINGERSTICK GLU 139 mg/dL High 74-106 [facility] Comment on above: Result Comment: EDGAR GEMENT OF PATIENT CARE PER NURSING PROTOCOL Performed By: #### L 501.080 ####[facility] [address] [place], [address] FINGERSTICK GLU 156 mg/dL High -106 [facility] Comment on above: Result Comment: EDGAR GEMENT OF PATIENT CARE PER NURSING PROTOCOL Performed By: #### L 501.080 ####[facility] [address] [place], [address] FINGERSTICK GLU 177 mg/dL High 74-106 [facility] Comment on above: Result Comment: EDGAR GEMENT OF PATIENT CARE PER NURSING PROTOCOL Performed By: #### L 501.080 ####[facility] [address] [place], [address] FINGERSTICK GLU 167 mg/dL High 74-106 [facility] Comment on above: Result Comment: EDGAR GEMENT OF PATIENT CARE PER NURSING PROTOCOL Performed By: #### L 501.080 ####[facility] [address] [place], [address] FINGERSTICK GLU 171 mg/dL High -106 [facility] Comment on above: Result Comment: EDGAR GEMENT OF PATIENT CARE PER NURSING PROTOCOL Performed By: #### L 501.080 ####[facility] [address] [place], [address] FINGERSTICK GLU 176 mg/dL High 74-106 [facility] Comment on above: Result Comment: EDGAR GEMENT OF PATIENT CARE PER NURSING PROTOCOL Performed By: #### L 501.080 ####[facility] [address] [place], [address] FINGERSTICK GLU 192 mg/dL High [address] [place] [address] Comment on above: Result Comment: EDGAR GEMENT OF PATIENT CARE PER NURSING PROTOCOL Performed By: #### L 501.080 ####[facility] [address] [place], [address] FINGERSTICK GLU 200 mg/dL High [facility]106 [facility] Comment on above: Result Comment: EDGAR GEMENT OF PATIENT CARE PER NURSING PROTOCOL Performed By: #### L 501.080 ####[facility] [address] [place], [address] FINGERSTICK GLU 204 mg/dL High [address] [place] [address] Comment on above: Result Comment: EDGAR GEMENT OF PATIENT CARE PER NURSING PROTOCOL Performed By: #### L 501.080 ####[facility] [address] [place], [address] FINGERSTICK GLU 229 mg/dL High [facility]106 [facility] Comment on above: Result Comment: EDGAR GEMENT OF PATIENT CARE PER NURSING PROTOCOL Performed By: #### L 501.080 ####[facility] [address] [place], [address] FINGERSTICK GLU 218 mg/dL High [address] [place] [address] Comment on above: Result Comment: EDGAR GEMENT OF PATIENT CARE PER NURSING PROTOCOL Performed By: #### L 501.080 ####[facility] [address] [place], [address] FINGERSTICK GLU 241 mg/dL High [address] [place] [address] Comment on above: Result Comment: EDGAR GEMENT OF PATIENT CARE PER NURSING PROTOCOL Performed By: #### L 501.080 ####[facility] [address] [place], [address] FINGERSTICK GLU 203 mg/dL High 74-106 [facility] Comment on above: Result Comment: EDGAR GEMENT OF PATIENT CARE PER NURSING PROTOCOL Performed By: #### L 501.080 ####[facility] [address] [place], [address] FINGERSTICK GLU 182 mg/dL High [facility]106 [facility] Comment on above: Result Comment: EDGAR GEMENT OF PATIENT CARE PER NURSING PROTOCOL Performed By: #### L 501.080 ####[facility] [address] [place], [address] FINGERSTICK GLU 199 mg/dL High -106 [facility] Comment on above: Result Comment: EDGAR GEMENT OF PATIENT CARE PER NURSING PROTOCOL Performed By: #### L 501.080 ####[facility] [address] [place], [address] FINGERSTICK GLU 201 mg/dL High -106 [facility] Comment on above: Result Comment: EDGAR GEMENT OF PATIENT CARE PER NURSING PROTOCOL Performed By: #### L 501.080 ####[facility] [address] [place], [address] Consultation - Intensiviston 03-18-2025 Consultation - Nuclear Radiation Engineer Normal [facility] Bedside Glucoseon 03-17-2025 FINGERSTICK GLU 272 mg/dL High 74-106 [facility] Comment on above: Result Comment: EDGAR GEMENT OF PATIENT CARE PER NURSING PROTOCOL Performed By: #### L 501.080 ####[facility] [address] [place], [address] Beta-Hydroxbytyrateon 2024 BETA-HYDROXYBUT 9.3 mmol/L High 0.0-0.3 [facility] Comment on above: Performed By: #### L 501.6901 ####[facility] [address] [place], [address] Chest 1 View (Portable)on Chest 1 View (Portable) Normal [facility] Comprehensive Metabolic Prof ilon 03-17-2025 Albumin [Mass/Vol] 5.0 g/dL Normal 3.5-5.0 [facility] Comment on above: Performed By: #### L 100.0100, L500.4050, L501.2450, L700.6800 ####[facility] [address] [place], [address] Albumin/Globulin [Mass ratio] 1.9 {ratio} Normal 0.9-2.4 [facility] Comment on above: Performed By: #### L 100.0100, L500.4050, L501.2450, L700.6800 ####[facility] [address] [place], [address] ALK PHOS 123 U/L High 35-104 [facility] Comment on above: Performed By: #### L 100.0100, L500.4050, L501.2450, L700.6800 ####[facility] [address] [place], [address] ALT [Catalytic activity/Vol] 18 U/L Normal <=34 [facility] Comment on above: Performed By: #### L 100.0100, L500.4050, L501.2450, L700.6800 ####[facility] [address] [place], [address] AST [Catalytic activity/Vol] 18 U/L Normal <=31 [facility] Comment on above: Performed By: #### L 100.0100, L500.4050, L501.2450, L700.6800 ####[facility] [address] [place], [address] Bilirubin [Mass/Vol] 0.74 mg/dL Normal 0.00-1.30 [facility] Comment on above: Performed By: #### L 100.0100, L500.4050, L501.2450, L700.6800 ####[facility] [address] [place], [address] BUN/CRE 14.1 RATIO Normal 10-20 [facility] Comment on above: Performed By: #### L 100.0100, L500.4050, L501.2450, L700.6800 ####[facility] [address] [place], [address] Calcium [Mass/Vol] 9.7 mg/dL Normal 7.6-11.0 [facility] Comment on above: Performed By: #### L 100.0100, L500.4050, L501.2450, L700.6800 ####[facility] [address] [place], [address] Chloride [Moles/Vol] 84 mmol/L Low 98-108 [facility] Comment on above: Performed By: #### L 100.0100, L500.4050, L501.2450, L700.6800 ####[facility] [address] [place], [address] CO2 [Moles/Vol] 6.0 mmol/L Invalid Interpretation Code 21.0-32.0 [facility] Comment on above: Result Comment: Crit ical Result(s) Called at: 2137 by:??JULIÁN CHANDLER. Results read back by same. Performed By: #### L 100.0100, L500.4050, L501.2450, L700.6800 ####[facility] [address] [place], [address] Creatinine [Mass/Vol] 1.18 mg/dL Normal 0.70-1.20 [facility] Comment on above: Performed By: #### L 100.0100, L500.4050, L501.2450, L700.6800 ####[facility] [address] [place], [address] ECRCL 72.85 ml/min Normal 50-250 [facility] Comment on above: Performed By: #### L 100.0100, L500.4050, L501.2450, L700.6800 ####[facility] [address] [place], [address] GAP 37 High 5-15 [facility] Comment on above: Performed By: #### L 100.0100, L500.4050, L501.2450, L700.6800 ####[facility] [address] [place], [address] GFR/1.73 sq M.predicted among non-blacks MDRD (S/P/Bld) [Vol rate/Area] 64 mL/min/{1.73_m2} Normal >60 [facility] Comment on above: Result Comment: mL/m in/1.73m2 CKD-EPI Creatinine Equation (2020) Performed By: #### L 100.0100, L500.4050, L501.2450, L700.6800 ####[facility] [address] [place], [address] Globulin (S) [Mass/Vol] 2.7 g/dL Normal 2.2-4.2 [facility] Comment on above: Performed By: #### L 100.0100, L500.4050, L501.2450, L700.6800 ####[facility] [address] [place], [address] Glucose [Mass/Vol] 561 mg/dL Invalid Interpretation Code 70-99 [facility] Comment on above: Result Comment: Crit ical Result(s) Called at: by:??Results read back bysame.Critical Result(s) Called at: 2136 by:??JULIÁN CHANDLER. Results read back by same. Performed By: #### L 100.0100, L500.4050, L501.2450, L700.6800 ####[facility] [address] [place], [address] Potassium [Moles/Vol] 5.4 mmol/L High 3.3-5.1 [facility] Comment on above: Performed By: #### L 100.0100, L500.4050, L501.2450, L700.6800 ####[facility] [address] [place], [address] Sodium [Moles/Vol] 128 mmol/L Low 133-145 [facility] Comment on above: Performed By: #### L 100.0100, L500.4050, L501.2450, L700.6800 ####[facility] [address] [place], [address] T PROT 7.6 g/dL Normal 5.9-8.4 [facility] Comment on above: Performed By: #### L 100.0100, L500.4050, L501.2450, L700.6800 ####[facility] [address] [place], [address] Urea nitrogen [Mass/Vol] 17 mg/dL Normal 4-19 [facility] Comment on above: Performed By: #### L 100.0100, L500.4050, L501.2450, L700.6800 ####[facility] [address] [place], [address] Emergency Department Summary on 03-17-2025 Emergency Department Summary Normal [facility] Lipaseon 03-17-2025 Lipase [Catalytic activity/Vol] 10 U/L Low 13-75 [facility] Comment on above: Result Comment: Sulma schmitz note:LIPASE revised reference range effective 22.New Lipase methodology. Expected to produce lower valuesthan the previous assay method.NEW Reference Range: 13 - 75 U/L Performed By: #### L 100.0100, L500.4050, L501.2450, L700.6800 ####[facility] [address] [place], [address] ,Serum,hCG Quali.on 03-17-2025 HCG, SERUM QUAL Negative [facility] Comment on above: Performed By: #### L 100.0100, L500.4050, L501.2450, L700.6800 ####[facility] [address] [place], [address] Venous Blood Gason Blood Gas Type ISABELLE [facility] Comment on above: Performed By: #### L 9000.0810 ####[facility] [address] [place], [address] CO2 [Moles/Vol] 7 mmol/L Low 23-33 [facility] Comment on above: Performed By: #### L 9000.0810 ####[facility] [address] [place], [address] HCO3 (Bld) [Moles/Vol] 6 mmol/L Low 22-26 [facility] Comment on above: Performed By: #### L 9000.0810 ####[facility] [address] [place], [address] O2 Delivery Dev Room Air [facility] Comment on above: Performed By: #### L 9000.0810 ####[facility] [address] [place], [address] Read Back By Yes [facility] Comment on above: Performed By: #### L 9000.0810 ####[facility] [address] [place], [address] Results To Garces [facility] Comment on above: Performed By: #### L 9000.0810 ####[facility] [address] [place], [address] SITE Not entered Normal [facility] Comment on above: Performed By: #### L 9000.0810 ####[facility] [address] [place], [address] Time Given 20:45:58 Normal [facility] Comment on above: Performed By: #### L 9000.0810 ####[facility] [address] [place], [address] VBG BE -23 mmol/L Low -1.0-3.5 [facility] Comment on above: Performed By: #### L 9000.0810 ####[facility] [address] [place], [address] VBG pCO2 17.3 mmHg Invalid Interpretation Code 41-51 [facility] Comment on above: Performed By: #### L 9000.0810 ####[facility] [address] [place], [address] VBG pH 7.15 Invalid Interpretation Code 7.32-7.42 [facility] Comment on above: Performed By: #### L 9000.0810 ####[facility] [address] [place], [address] VBG PO2 55 mmHg High 25-40 [facility] Comment on above: Performed By: #### L 9000.0810 ####[facility] [address] [place], [address] VBG SO2 80 High 50-70 [facility] Comment on above: Performed By: #### L 9000.0810 ####[facility] [address] [place], [address] Bedside Glucoseon 03-08-2025 FINGERSTICK GLU 252 mg/dL High 74-106 [facility] Comment on above: Result Comment: EDGAR GEMENT OF PATIENT CARE PER NURSING PROTOCOL Performed By: #### L 501.080 ####[facility] [address] [place], [address] FINGERSTICK GLU 272 mg/dL High 74-106 [facility] Comment on above: Result Comment: EDGAR GEMENT OF PATIENT CARE PER NURSING PROTOCOL Performed By: #### L 501.080 ####[facility] [address] [place], [address] Basic Metabolic Profile (BMP )on 03-07-2025 BUN Normal 4-19 [facility] Comment on above: Result Comment: Canc elled via OM: MD Ordered Performed By: #### L 500.2500 ####[facility] [address] [place], [address] BUN/CRE Normal 10-20 [facility] Comment on above: Result Comment: Canc elled via OM: MD Ordered Performed By: #### L 500.2500 ####[facility] [address] [place], [address] Calcium Normal 7.6-11.0 [facility] Comment on above: Result Comment: Canc elled via OM: MD Ordered Performed By: #### L 500.2500 ####[facility] [address] [place], [address] CL Normal 98-108 [facility] Comment on above: Result Comment: Canc elled via OM: MD Ordered Performed By: #### L 500.2500 ####[facility] [address] [place], [address] CO2 Normal 21.0-32.0 [facility] Comment on above: Result Comment: Canc elled via OM: MD Ordered Performed By: #### L 500.2500 ####[facility] [address] [place], [address] CREAT,SERUM Normal 0.70-1.20 [facility] Comment on above: Result Comment: Canc elled via OM: MD Ordered Performed By: #### L 500.2500 ####[facility] [address] [place], [address] eGFR Normal >60 [facility] Comment on above: Result Comment: Canc elled via OM: MD Ordered Performed By: #### L 500.2500 ####[facility] [address] [place], [address] GAP Normal 5-15 [facility] Comment on above: Result Comment: Canc elled via OM: MD Ordered Performed By: #### L 500.2500 ####[facility] [address] [place], [address] GLU Normal 70-99 [facility] Comment on above: Result Comment: Canc elled via OM: MD Ordered Performed By: #### L 500.2500 ####[facility] [address] [place], [address] Potassium Normal 3.3-5.1 [facility] Comment on above: Result Comment: Canc elled via OM: MD Ordered Performed By: #### L 500.2500 ####[facility] [address] [place], [address] Basic Metabolic Profile (BMP) Normal 133-145 [facility] Comment on above: Result Comment: Canc elled via OM: MD Ordered Performed By: #### L 500.2500 ####[facility] [address] [place], [address] BUN/CRE 8.1 RATIO Low 10-20 [facility] Comment on above: Performed By: #### L 500.2500 ####[facility] [address] [place], [address] Calcium [Mass/Vol] 8.0 mg/dL Normal 7.6-11.0 [facility] Comment on above: Performed By: #### L 500.2500 ####[facility] [address] [place], [address] Chloride [Moles/Vol] 110 mmol/L High 98-108 [facility] Comment on above: Performed By: #### L 500.2500 ####[facility] [address] [place], [address] CO2 [Moles/Vol] 21.4 mmol/L Normal 21.0-32.0 [facility] Comment on above: Performed By: #### L 500.2500 ####[facility] [address] [place], [address] Creatinine [Mass/Vol] 0.58 mg/dL Low 0.70-1.20 [facility] Comment on above: Performed By: #### L 500.2500 ####[facility] [address] [place], [address] ECRCL 148.22 ml/min Normal 50-250 [facility] Comment on above: Performed By: #### L 500.2500 ####[facility] [address] [place], [address] GAP 8 Normal 5-15 [facility] Comment on above: Performed By: #### L 500.2500 ####[facility] [address] [place], [address] GFR/1.73 sq M.predicted among non-blacks MDRD (S/P/Bld) [Vol rate/Area] 125 mL/min/{1.73_m2} Normal >60 [facility] Comment on above: Result Comment: mL/m in/1.73m2 CKD-EPI Creatinine Equation (2020) Performed By: #### L 500.2500 ####[facility] [address] [place], [address] Glucose [Mass/Vol] 113 mg/dL High 70-99 [facility] Comment on above: Performed By: #### L 500.2500 ####[facility] [address] [place], [address] Potassium [Moles/Vol] 3.2 mmol/L Low 3.3-5.1 [facility] Comment on above: Performed By: #### L 500.2500 ####[facility] [address] [place], [address] Sodium [Moles/Vol] 139 mmol/L Normal 133-145 [facility] Comment on above: Performed By: #### L 500.2500 ####[facility] [address] [place], [address] Urea nitrogen [Mass/Vol] 5 mg/dL Normal 4-19 [facility] Comment on above: Performed By: #### L 500.2500 ####[facility] [address] [place], [address] BUN/CRE 9.9 RATIO Low 10-20 [facility] Comment on above: Performed By: #### L 500.2500 ####[facility] [address] [place], [address] Calcium [Mass/Vol] 8.2 mg/dL Normal 7.6-11.0 [facility] Comment on above: Performed By: #### L 500.2500 ####[facility] [address] [place], [address] Chloride [Moles/Vol] 109 mmol/L High 98-108 [facility] Comment on above: Performed By: #### L 500.2500 ####[facility] [address] [place], [address] CO2 [Moles/Vol] 20.2 mmol/L Low 21.0-32.0 [facility] Comment on above: Performed By: #### L 500.2500 ####[facility] [address] [place], [address] Creatinine [Mass/Vol] 0.63 mg/dL Low 0.70-1.20 [facility] Comment on above: Performed By: #### L 500.2500 ####[facility] [address] [place], [address] ECRCL 136.46 ml/min Normal 50-250 [facility] Comment on above: Performed By: #### L 500.2500 ####[facility] [address] [place], [address] GAP 10 Normal 5-15 [facility] Comment on above: Performed By: #### L 500.2500 ####[facility] [address] [place], [address] GFR/1.73 sq M.predicted among non-blacks MDRD (S/P/Bld) [Vol rate/Area] 122 mL/min/{1.73_m2} Normal >60 [facility] Comment on above: Result Comment: mL/m in/1.73m2 CKD-EPI Creatinine Equation (2020) Performed By: #### L 500.2500 ####[facility] [address] [place], [address] Glucose [Mass/Vol] 136 mg/dL High 70-99 [facility] Comment on above: Performed By: #### L 500.2500 ####[facility] [address] [place], [address] Potassium [Moles/Vol] 3.3 mmol/L Normal 3.3-5.1 [facility] Comment on above: Performed By: #### L 500.2500 ####[facility] [address] [place], [address] Sodium [Moles/Vol] 139 mmol/L Normal 133-145 [facility] Comment on above: Performed By: #### L 500.2500 ####[facility] [address] [place], [address] Urea nitrogen [Mass/Vol] 6 mg/dL Normal 4-19 [facility] Comment on above: Performed By: #### L 500.2500 ####[facility] [address] [place], [address] Bedside Glucoseon 03-07-2025 FINGERSTICK GLU 282 mg/dL High 74-106 [facility] Comment on above: Result Comment: EDGAR GEMENT OF PATIENT CARE PER NURSING PROTOCOL Performed By: #### L 501.080 ####[facility] [address] [place], [address] FINGERSTICK GLU 262 mg/dL High 74-106 [facility] Comment on above: Result Comment: EDGAR GEMENT OF PATIENT CARE PER NURSING PROTOCOL Performed By: #### L 501.080 ####[facility] [address] [place], [address] FINGERSTICK GLU 354 mg/dL High 74-106 [facility] Comment on above: Result Comment: EDGAR GEMENT OF PATIENT CARE PER NURSING PROTOCOL Performed By: #### L 501.080 ####[facility] [address] [place], [address] FINGERSTICK GLU 169 mg/dL High 74-106 [facility] Comment on above: Result Comment: EDGAR GEMENT OF PATIENT CARE PER NURSING PROTOCOL Performed By: #### L 501.080 ####[facility] [address] [place], [address] FINGERSTICK GLU 163 mg/dL High 74-106 [facility] Comment on above: Result Comment: EDGAR GEMENT OF PATIENT CARE PER NURSING PROTOCOL Performed By: #### L 501.080 ####[facility] [address] [place], [address] FINGERSTICK GLU 106 mg/dL Normal 74-106 [facility] Comment on above: Result Comment: EDGAR GEMENT OF PATIENT CARE PER NURSING PROTOCOL Performed By: #### L 501.080 ####[facility] [address] [place], [address] FINGERSTICK GLU 88 mg/dL Normal 74-106 [facility] Comment on above: Result Comment: EDGAR GEMENT OF PATIENT CARE PER NURSING PROTOCOL Performed By: #### L 501.080 ####[facility] [address] [place], [address] FINGERSTICK GLU 94 mg/dL Normal 74-106 [facility] Comment on above: Result Comment: EDGAR GEMENT OF PATIENT CARE PER NURSING PROTOCOL Performed By: #### L 501.080 ####[facility] [address] [place], [address] FINGERSTICK GLU 129 mg/dL High 74-106 [facility] Comment on above: Result Comment: EDGAR GEMENT OF PATIENT CARE PER NURSING PROTOCOL Performed By: #### L 501.080 ####[facility] [address] [place], [address] FINGERSTICK GLU 119 mg/dL High 74-106 [facility] Comment on above: Result Comment: EDGAR GEMENT OF PATIENT CARE PER NURSING PROTOCOL Performed By: #### L 501.080 ####[facility] [address] [place], [address] Beta-Hydroxbytyrateon 2024 BETA-HYDROXYBUT 1.2 mmol/L High 0.0-0.3 [facility] Comment on above: Performed By: #### L 501.6901 ####[facility] [address] [place], [address] CBC-Complete Blood Cnt No Di ffon 03-07-2025 Erythrocyte distribution width (RBC) [Ratio] 13.8 % Normal 11.6-14.6 [facility] Comment on above: Performed By: #### L 100.0500 ####[facility] [address] [place], [address] Hematocrit (Bld) [Volume fraction] 33.3 % Low 37-47 [facility] Comment on above: Performed By: #### L 100.0500 ####[facility] [address] [place], [address] Hemoglobin (Bld) [Mass/Vol] 11.0 g/dL Low 12.0-15.0 [facility] Comment on above: Performed By: #### L 100.0500 ####[facility] [address] [place], [address] MCH (RBC) [Entitic mass] 29.6 pg Normal 27.0-32.0 [facility] Comment on above: Performed By: #### L 100.0500 ####[facility] [address] [place], [address] MCHC (RBC) [Mass/Vol] 33.0 g/dL Normal 32-36 [facility] Comment on above: Performed By: #### L 100.0500 ####[facility] [address] [place], [address] MCV (RBC) [Entitic vol] 89.8 fL Normal 81-99 [facility] Comment on above: Performed By: #### L 100.0500 ####[facility] [address] [place], [address] Platelet mean volume (Bld) [Entitic vol] 11.4 fL Normal 6.2-12.0 [facility] Comment on above: Performed By: #### L 100.0500 ####[facility] [address] [place], [address] Platelets (Bld) [#/Vol] 176 10*3/uL Normal 150-450 [facility] Comment on above: Performed By: #### L 100.0500 ####[facility] [address] [place], [address] RBC (Bld) [#/Vol] 3.71 10*6/uL Low 4.2-5.4 [facility] Comment on above: Performed By: #### L 100.0500 ####[facility] [address] [place], [address] RDW SD 45.2 fl High 35.1-43.9 [facility] Comment on above: Performed By: #### L 100.0500 ####[facility] [address] [place], [address] WBC (Bld) [#/Vol] 15.4 10*3/uL High 4.4-11.0 [facility] Comment on above: Performed By: #### L 100.0500 ####[facility] [address] [place], [address] Basic Metabolic Profile (BMP )on 03-06-2025 BUN/CRE 12.3 RATIO Normal 10-20 [facility] Comment on above: Order Comment: Call MD with results STAT Performed By: #### L 500.2500 ####[facility] [address] [place], [address] Calcium [Mass/Vol] 8.3 mg/dL Normal 7.6-11.0 [facility] Comment on above: Order Comment: Call MD with results STAT Performed By: #### L 500.2500 ####[facility] [address] [place], [address] Chloride [Moles/Vol] 107 mmol/L Normal 98-108 [facility] Comment on above: Order Comment: Call MD with results STAT Performed By: #### L 500.2500 ####[facility] [address] [place], [address] CO2 [Moles/Vol] 18.9 mmol/L Low 21.0-32.0 [facility] Comment on above: Order Comment: Call MD with results STAT Performed By: #### L 500.2500 ####[facility] [address] [place], [address] Creatinine [Mass/Vol] 0.68 mg/dL Low 0.70-1.20 [facility] Comment on above: Order Comment: Call MD with results STAT Performed By: #### L 500.2500 ####[facility] [address] [place], [address] ECRCL 126.42 ml/min Normal 50-250 [facility] Comment on above: Order Comment: Call MD with results STAT Performed By: #### L 500.2500 ####[facility] [address] [place], [address] GAP 12 Normal 5-15 [facility] Comment on above: Order Comment: Call MD with results STAT Performed By: #### L 500.2500 ####[facility] [address] [place], [address] GFR/1.73 sq M.predicted among non-blacks MDRD (S/P/Bld) [Vol rate/Area] 120 mL/min/{1.73_m2} Normal >60 [facility] Comment on above: Order Comment: Call MD with results STAT Result Comment: mL/m in/1.73m2 CKD-EPI Creatinine Equation (2020) Performed By: #### L 500.2500 ####[facility] [address] [place], [address] Glucose [Mass/Vol] 199 mg/dL High 70-99 [facility] Comment on above: Order Comment: Call MD with results STAT Performed By: #### L 500.2500 ####[facility] [address] [place], [address] Potassium [Moles/Vol] 3.6 mmol/L Normal 3.3-5.1 [facility] Comment on above: Order Comment: Call MD with results STAT Performed By: #### L 500.2500 ####[facility] [address] [place], [address] Sodium [Moles/Vol] 137 mmol/L Normal 133-145 [facility] Comment on above: Order Comment: Call MD with results STAT Performed By: #### L 500.2500 ####[facility] [address] [place], [address] Urea nitrogen [Mass/Vol] 8 mg/dL Normal 4-19 [facility] Comment on above: Order Comment: Call MD with results STAT Performed By: #### L 500.2500 ####[facility] [address] [place], [address] BUN/CRE 13.8 RATIO Normal 10-20 [facility] Comment on above: Order Comment: Call MD with results STAT Performed By: #### L 500.2500 ####[facility] [address] [place], [address] Calcium [Mass/Vol] 8.3 mg/dL Normal 7.6-11.0 [facility] Comment on above: Order Comment: Call MD with results STAT Performed By: #### L 500.2500 ####[facility] [address] [place], [address] Chloride [Moles/Vol] 105 mmol/L Normal 98-108 [facility] Comment on above: Order Comment: Call MD with results STAT Performed By: #### L 500.2500 ####[facility] [address] [place], [address] CO2 [Moles/Vol] 16.5 mmol/L Low 21.0-32.0 [facility] Comment on above: Order Comment: Call MD with results STAT Performed By: #### L 500.2500 ####[facility] [address] [place], [address] Creatinine [Mass/Vol] 0.70 mg/dL Normal 0.70-1.20 [facility] Comment on above: Order Comment: Call MD with results STAT Performed By: #### L 500.2500 ####[facility] [address] [place], [address] ECRCL 122.81 ml/min Normal 50-250 [facility] Comment on above: Order Comment: Call MD with results STAT Performed By: #### L 500.2500 ####[facility] [address] [place], [address] GAP 15 Normal 5-15 [facility] Comment on above: Order Comment: Call MD with results STAT Performed By: #### L 500.2500 ####[facility] [address] [place], [address] GFR/1.73 sq M.predicted among non-blacks MDRD (S/P/Bld) [Vol rate/Area] 119 mL/min/{1.73_m2} Normal >60 [facility] Comment on above: Order Comment: Call MD with results STAT Result Comment: mL/m in/1.73m2 CKD-EPI Creatinine Equation (2020) Performed By: #### L 500.2500 ####[facility] [address] [place], [address] Glucose [Mass/Vol] 239 mg/dL High 70-99 [facility] Comment on above: Order Comment: Call MD with results STAT Performed By: #### L 500.2500 ####[facility] [address] [place], [address] Potassium [Moles/Vol] 4.0 mmol/L Normal 3.3-5.1 [facility] Comment on above: Order Comment: Call MD with results STAT Performed By: #### L 500.2500 ####[facility] [address] [place], [address] Sodium [Moles/Vol] 136 mmol/L Normal 133-145 [facility] Comment on above: Order Comment: Call MD with results STAT Performed By: #### L 500.2500 ####[facility] [address] [place], [address] Urea nitrogen [Mass/Vol] 10 mg/dL Normal 4-19 [facility] Comment on above: Order Comment: Call MD with results STAT Performed By: #### L 500.2500 ####[facility] [address] [place], [address] BUN/CRE 15.9 RATIO Normal 10-20 [facility] Comment on above: Order Comment: Call MD with results STAT Performed By: #### L 500.2500 ####[facility] [address] [place], [address] Calcium [Mass/Vol] 8.3 mg/dL Normal 7.6-11.0 [facility] Comment on above: Order Comment: Call MD with results STAT Performed By: #### L 500.2500 ####[facility] [address] [place], [address] Chloride [Moles/Vol] 105 mmol/L Normal 98-108 [facility] Comment on above: Order Comment: Call MD with results STAT Performed By: #### L 500.2500 ####[facility] [address] [place], [address] CO2 [Moles/Vol] 13.0 mmol/L Low 21.0-32.0 [facility] Comment on above: Order Comment: Call MD with results STAT Performed By: #### L 500.2500 ####[facility] [address] [place], [address] Creatinine [Mass/Vol] 0.71 mg/dL Normal 0.70-1.20 [facility] Comment on above: Order Comment: Call MD with results STAT Performed By: #### L 500.2500 ####[facility] [address] [place], [address] ECRCL 121.08 ml/min Normal 50-250 [facility] Comment on above: Order Comment: Call MD with results STAT Performed By: #### L 500.2500 ####[facility] [address] [place], [address] GAP 18 High 5-15 [facility] Comment on above: Order Comment: Call MD with results STAT Performed By: #### L 500.2500 ####[facility] [address] [place], [address] GFR/1.73 sq M.predicted among non-blacks MDRD (S/P/Bld) [Vol rate/Area] 117 mL/min/{1.73_m2} Normal >60 [facility] Comment on above: Order Comment: Call MD with results STAT Result Comment: mL/m in/1.73m2 CKD-EPI Creatinine Equation (2020) Performed By: #### L 500.2500 ####[facility] [address] [place], [address] Glucose [Mass/Vol] 220 mg/dL High 70-99 [facility] Comment on above: Order Comment: Call MD with results STAT Performed By: #### L 500.2500 ####[facility] [address] [place], [address] Potassium [Moles/Vol] 4.3 mmol/L Normal 3.3-5.1 [facility] Comment on above: Order Comment: Call MD with results STAT Result Comment: Hemo lysis present, Results??could be affected.?? Performed By: #### L 500.2500 ####[facility] [address] [place], [address] Sodium [Moles/Vol] 136 mmol/L Normal 133-145 [facility] Comment on above: Order Comment: Call MD with results STAT Performed By: #### L 500.2500 ####[facility] [address] [place], [address] Urea nitrogen [Mass/Vol] 11 mg/dL Normal 4-19 [facility] Comment on above: Order Comment: Call MD with results STAT Performed By: #### L 500.2500 ####[facility] [address] [place], [address] BUN/CRE 17.5 RATIO Normal 10-20 [facility] Comment on above: Order Comment: Call MD with results STAT Performed By: #### L 500.2500 ####[facility] [address] [place], [address] Calcium [Mass/Vol] 8.8 mg/dL Normal 7.6-11.0 [facility] Comment on above: Order Comment: Call MD with results STAT Performed By: #### L 500.2500 ####[facility] [address] [place], [address] Chloride [Moles/Vol] 102 mmol/L Normal 98-108 [facility] Comment on above: Order Comment: Call MD with results STAT Performed By: #### L 500.2500 ####[facility] [address] [place], [address] CO2 [Moles/Vol] 11.6 mmol/L Low 21.0-32.0 [facility] Comment on above: Order Comment: Call MD with results STAT Performed By: #### L 500.2500 ####[facility] [address] [place], [address] Creatinine [Mass/Vol] 0.85 mg/dL Normal 0.70-1.20 [facility] Comment on above: Order Comment: Call MD with results STAT Performed By: #### L 500.2500 ####[facility] [address] [place], [address] ECRCL 101.14 ml/min Normal 50-250 [facility] Comment on above: Order Comment: Call MD with results STAT Performed By: #### L 500.2500 ####[facility] [address] [place], [address] GAP 22 High 5-15 [facility] Comment on above: Order Comment: Call MD with results STAT Performed By: #### L 500.2500 ####[facility] [address] [place], [address] GFR/1.73 sq M.predicted among non-blacks MDRD (S/P/Bld) [Vol rate/Area] 94 mL/min/{1.73_m2} Normal >60 [facility] Comment on above: Order Comment: Call MD with results STAT Result Comment: mL/m in/1.73m2 CKD-EPI Creatinine Equation (2020) Performed By: #### L 500.2500 ####[facility] [address] [place], [address] Glucose [Mass/Vol] 317 mg/dL High 70-99 [facility] Comment on above: Order Comment: Call MD with results STAT Performed By: #### L 500.2500 ####[facility] [address] [place], [address] Potassium [Moles/Vol] 4.6 mmol/L Normal 3.3-5.1 [facility] Comment on above: Order Comment: Call MD with results STAT Result Comment: Hemo lysis present, Results??could be affected.?? Performed By: #### L 500.2500 ####[facility] [address] [place], [address] Sodium [Moles/Vol] 136 mmol/L Normal 133-145 [facility] Comment on above: Order Comment: Call MD with results STAT Performed By: #### L 500.2500 ####[facility] [address] [place], [address] Urea nitrogen [Mass/Vol] 15 mg/dL Normal 4-19 [facility] Comment on above: Order Comment: Call MD with results STAT Performed By: #### L 500.2500 ####[facility] [address] [place], [address] BUN/CRE 18.2 RATIO Normal 10-20 [facility] Comment on above: Performed By: #### L 500.2500, L501.7300, L100.0100, L500.3400, L501.2450 ####[facility] [address] [place], [address] Calcium [Mass/Vol] 9.3 mg/dL Normal 7.6-11.0 [facility] Comment on above: Performed By: #### L 500.2500, L501.7300, L100.0100, L500.3400, L501.2450 ####[facility] [address] [place], [address] Chloride [Moles/Vol] 95 mmol/L Low 98-108 [facility] Comment on above: Performed By: #### L 500.2500, L501.7300, L100.0100, L500.3400, L501.2450 ####[facility] [address] [place], [address] CO2 [Moles/Vol] 11.4 mmol/L Low 21.0-32.0 [facility] Comment on above: Performed By: #### L 500.2500, L501.7300, L100.0100, L500.3400, L501.2450 ####[facility] [address] [place], [address] Creatinine [Mass/Vol] 0.87 mg/dL Normal 0.70-1.20 [facility] Comment on above: Performed By: #### L 500.2500, L501.7300, L100.0100, L500.3400, L501.2450 ####[facility] [address] [place], [address] ECRCL 98.81 ml/min Normal 50-250 [facility] Comment on above: Performed By: #### L 500.2500, L501.7300, L100.0100, L500.3400, L501.2450 ####[facility] [address] [place], [address] GAP 27 High 5-15 [facility] Comment on above: Performed By: #### L 500.2500, L501.7300, L100.0100, L500.3400, L501.2450 ####[facility] [address] [place], [address] GFR/1.73 sq M.predicted among non-blacks MDRD (S/P/Bld) [Vol rate/Area] 91 mL/min/{1.73_m2} Normal >60 [facility] Comment on above: Result Comment: mL/m in/1.73m2 CKD-EPI Creatinine Equation (2020) Performed By: #### L 500.2500, L501.7300, L100.0100, L500.3400, L501.2450 ####[facility] [address] [place], [address] Glucose [Mass/Vol] 547 mg/dL Invalid Interpretation Code 70-99 [facility] Comment on above: Result Comment: Crit ical Result(s) Called at 0240: by: SUZANNE AGUILERA??Results read back by same. Performed By: #### L 500.2500, L501.7300, L100.0100, L500.3400, L501.2450 ####[facility] [address] [place], [address] Potassium [Moles/Vol] 4.4 mmol/L Normal 3.3-5.1 [facility] Comment on above: Performed By: #### L 500.2500, L501.7300, L100.0100, L500.3400, L501.2450 ####[facility] [address] [place], [address] Sodium [Moles/Vol] 133 mmol/L Normal 133-145 [facility] Comment on above: Performed By: #### L 500.2500, L501.7300, L100.0100, L500.3400, L501.2450 ####[facility] [address] [place], [address] Urea nitrogen [Mass/Vol] 16 mg/dL Normal 4-19 [facility] Comment on above: Performed By: #### L 500.2500, L501.7300, L100.0100, L500.3400, L501.2450 ####[facility] [address] [place], [address] Bedside Glucoseon 03-06-2025 FINGERSTICK GLU 127 mg/dL High 74-106 [facility] Comment on above: Result Comment: EDGAR GEMENT OF PATIENT CARE PER NURSING PROTOCOL Performed By: #### L 501.080 ####[facility] [address] [place], [address] FINGERSTICK GLU 160 mg/dL High 74-106 [facility] Comment on above: Result Comment: EDGAR GEMENT OF PATIENT CARE PER NURSING PROTOCOL Performed By: #### L 501.080 ####[facility] [address] [place], [address] FINGERSTICK GLU 127 mg/dL High 74-106 [facility] Comment on above: Result Comment: EDGAR GEMENT OF PATIENT CARE PER NURSING PROTOCOL Performed By: #### L 501.080 ####[facility] [address] [place], [address] FINGERSTICK GLU 196 mg/dL High 74-106 [facility] Comment on above: Result Comment: EDGAR GEMENT OF PATIENT CARE PER NURSING PROTOCOL Performed By: #### L 501.080 ####[facility] [address] [place], [address] FINGERSTICK GLU 203 mg/dL High 74-106 [facility] Comment on above: Result Comment: Dr Ej foreman FollowedMANAGEMENT OF PATIENT CARE PER NURSING PROTOCOL Performed By: #### L 501.080 ####[facility] [address] [place], [address] FINGERSTICK GLU 231 mg/dL High 74-106 [facility] Comment on above: Result Comment: Dr Ej foreman FollowedMANAGEMENT OF PATIENT CARE PER NURSING PROTOCOL Performed By: #### L 501.080 ####[facility] [address] [place], [address] FINGERSTICK GLU 222 mg/dL High [address] [place] [address] Comment on above: Result Comment: EDGAR GEMENT OF PATIENT CARE PER NURSING PROTOCOL Performed By: #### L 501.080 ####[facility] [address] [place], [address] FINGERSTICK GLU 214 mg/dL High [facility]106 [facility] Comment on above: Result Comment: EDGAR GEMENT OF PATIENT CARE PER NURSING PROTOCOL Performed By: #### L 501.080 ####[facility] [address] [place], [address] FINGERSTICK GLU 214 mg/dL High [address] [place] [address] Comment on above: Result Comment: EDGAR GEMENT OF PATIENT CARE PER NURSING PROTOCOL Performed By: #### L 501.080 ####[facility] [address] [place], [address] FINGERSTICK GLU 241 mg/dL High -106 [facility] Comment on above: Result Comment: EDGAR GEMENT OF PATIENT CARE PER NURSING PROTOCOL Performed By: #### L 501.080 ####[facility] [address] [place], [address] FINGERSTICK GLU 247 mg/dL High 74-[address] [place] [address] Comment on above: Result Comment: Dr Ej foreman FollowedMANAGEMENT OF PATIENT CARE PER NURSING PROTOCOL Performed By: #### L 501.080 ####[facility] [address] [place], [address] FINGERSTICK GLU 217 mg/dL High [address] [place] [address] Comment on above: Result Comment: EDGAR GEMENT OF PATIENT CARE PER NURSING PROTOCOL Performed By: #### L 501.080 ####[facility] [address] [facility] [address] FINGERSTICK GLU 253 mg/dL High [address] [place] [address] Comment on above: Result Comment: EDGAR GEMENT OF PATIENT CARE PER NURSING PROTOCOL Performed By: #### L 501.080 ####[facility] [address] [place], [address] FINGERSTICK GLU 313 mg/dL High [address] [place] [address] Comment on above: Result Comment: EDGAR GEMENT OF PATIENT CARE PER NURSING PROTOCOL Performed By: #### L 501.080 ####[facility] [address] [place], [address] FINGERSTICK GLU 352 mg/dL High [address] [place] [address] Comment on above: Result Comment: EDGAR GEMENT OF PATIENT CARE PER NURSING PROTOCOL Performed By: #### L 501.080 ####[facility] [address] [place], [address] FINGERSTICK GLU 480 mg/dL Invalid Interpretation Code -[address] [place] [address] Comment on above: Result Comment: EDGAR GEMENT OF PATIENT CARE PER NURSING PROTOCOL Performed By: #### L 501.080 ####[facility] [address] [place], [address] Beta-Hydroxbytyrateon 2024 BETA-HYDROXYBUT 1.7 mmol/L High 0.0-0.3 [facility] Comment on above: Performed By: #### L 501.6901 ####[facility] [address] [place], [address] BETA-HYDROXYBUT 4.2 mmol/L High 0.0-0.3 [facility] Comment on above: Order Comment: FOR N IGHLTY MAINTENANCE, MOVED TO DIFFERENT [facility] FOR THATREASON Performed By: #### L 501.6901 ####[facility] [address] [place], [address] CBC W/Diff, Automatedon 02-25 PLT MORPH CLUMPED Normal [facility] Comment on above: Performed By: #### L 100.0100 ####[facility] [address] [place], [address] RED CELL MORPH NORM C+C Normal NORM C C [facility] Comment on above: Performed By: #### L 100.0100 ####[facility] [address] [place], [address] PLT EST ADEQUATE Normal ADEQ [facility] Comment on above: Performed By: #### L 100.0100 ####[facility] [address] [place], [address] SMEAR COMMENT SCANNED Normal [facility] Comment on above: Performed By: #### L 100.0100 ####[facility] [address] [place], [address] Absolute Neut Normal 2.0-7.7 [facility] Comment on above: Result Comment: This specimen has been REJECTED due to Laboratory criteria:Clotted.GEON has been notified of need of recollection.03/06/25 Yokasta Hayn Performed By: #### L 500.2500, L501.7300, L100.0100, L500.3400, L501.2450 ####[facility] [address] [place], [address] HCT Normal 37-47 [facility] Comment on above: Result Comment: This specimen has been REJECTED due to Laboratory criteria:Clotted.GENO has been notified of need of recollection.03/06/[address] [place] Performed By: #### L 500.2500, L501.7300, L100.0100, L500.3400, L501.2450 ####[facility] [address] [place], [address] HGB Normal 12.0-15.0 [facility] Comment on above: Result Comment: This specimen has been REJECTED due to Laboratory criteria:Clotted.GENO has been notified of need of recollection.03/06/25143 [place] Performed By: #### L 500.2500, L501.7300, L100.0100, L500.3400, L501.2450 ####[facility] [address] [place], [address] MCH Normal 27.0-32.0 [facility] Comment on above: Result Comment: This specimen has been REJECTED due to Laboratory criteria:Clotted.GENO has been notified of need of recollection.03/06/25143 [place] Performed By: #### L 500.2500, L501.7300, L100.0100, L500.3400, L501.2450 ####[facility] [address] [place], [address] MCHC Normal 32-36 [facility] Comment on above: Result Comment: This specimen has been REJECTED due to Laboratory criteria:Clotted.GENO has been notified of need of recollection.03/06/25143 [place] Performed By: #### L 500.2500, L501.7300, L100.0100, L500.3400, L501.2450 ####[facility] [address] [place], [address] MCV Normal 81-99 [facility] Comment on above: Result Comment: This specimen has been REJECTED due to Laboratory criteria:Clotted.GENO has been notified of need of recollection.03/06/25143 [place] Performed By: #### L 500.2500, L501.7300, L100.0100, L500.3400, L501.2450 ####[facility] [address] [place], [address] NEUT% Normal 47-70 [facility] Comment on above: Result Comment: This specimen has been REJECTED due to Laboratory criteria:Clotted.GENO has been notified of need of recollection.03/06/25143 [place] Performed By: #### L 500.2500, L501.7300, L100.0100, L500.3400, L501.2450 ####[facility] [address] [place], [address] PLT Normal 150-450 [facility] Comment on above: Result Comment: This specimen has been REJECTED due to Laboratory criteria:Clotted.GENO has been notified of need of recollection.03/06/25143 [place] Performed By: #### L 500.2500, L501.7300, L100.0100, L500.3400, L501.2450 ####[facility] [address] [place], [address] RBC Normal 4.2-5.4 [facility] Comment on above: Result Comment: This specimen has been REJECTED due to Laboratory criteria:Clotted.GENO has been notified of need of recollection.03/06/25143 [place] Performed By: #### L 500.2500, L501.7300, L100.0100, L500.3400, L501.2450 ####[facility] [address] [place], [address] RDW CV Normal 11.6-14.6 [facility] Comment on above: Result Comment: This specimen has been REJECTED due to Laboratory criteria:Clotted.GENO has been notified of need of recollection.03/06/25143 [place] Performed By: #### L 500.2500, L501.7300, L100.0100, L500.3400, L501.2450 ####[facility] [address] [place], [address] RDW SD Normal 35.1-43.9 [facility] Comment on above: Result Comment: This specimen has been REJECTED due to Laboratory criteria:Clotted.GENO has been notified of need of recollection.03/06/25143 [place] Performed By: #### L 500.2500, L501.7300, L100.0100, L500.3400, L501.2450 ####[facility] [address] [place], [address] WBC Normal 4.4-11.0 [facility] Comment on above: Result Comment: This specimen has been REJECTED due to Laboratory criteria:Clotted.GENO has been notified of need of recollection.03/06/25143 [place] Performed By: #### L 500.2500, L501.7300, L100.0100, L500.3400, L501.2450 ####[facility] [address] [place], [address] Chest PA and Lateralon 03-06 Chest PA and Lateral Normal [facility] Emergency Department Summary on 03-06-2025 Emergency Department Summary Normal [facility] H AND P Exam - Hospitaliston 03-06-2025 H&P Exam - Hospitalist Normal [facility] Lipaseon 03-06-2025 Lipase [Catalytic activity/Vol] 21 U/L Normal 13-75 [facility] Comment on above: Result Comment: Sulma schmitz note:LIPASE revised reference range effective 22.New Lipase methodology. Expected to produce lower valuesthan the previous assay method.NEW Reference Range: 13 - 75 U/L Performed By: #### L 500.2500, L501.7300, L100.0100, L500.3400, L501.2450 ####[facility] [address] [place], [address] Liver Profileon 03-06-2025 Albumin [Mass/Vol] 4.4 g/dL Normal 3.5-5.0 [facility] Comment on above: Performed By: #### L 500.2500, L501.7300, L100.0100, L500.3400, L501.2450 ####[facility] [address] [place], [address] ALK PHOS 85 U/L Normal 35-104 [facility] Comment on above: Performed By: #### L 500.2500, L501.7300, L100.0100, L500.3400, L501.2450 ####[facility] [address] [place], [address] ALT [Catalytic activity/Vol] 11 U/L Normal <=34 [facility] Comment on above: Performed By: #### L 500.2500, L501.7300, L100.0100, L500.3400, L501.2450 ####[facility] [address] [place], [address] AST [Catalytic activity/Vol] 17 U/L Normal <=31 [facility] Comment on above: Performed By: #### L 500.2500, L501.7300, L100.0100, L500.3400, L501.2450 ####[facility] [address] [place], [address] Bilirubin [Mass/Vol] 0.79 mg/dL Normal 0.00-1.30 [facility] Comment on above: Performed By: #### L 500.2500, L501.7300, L100.0100, L500.3400, L501.2450 ####[facility] [address] [place], [address] Bilirubin.direct [Mass/Vol] 0.35 mg/dL High 0.00-0.30 [facility] Comment on above: Performed By: #### L 500.2500, L501.7300, L100.0100, L500.3400, L501.2450 ####[facility] [address] [place], [address] Globulin (S) [Mass/Vol] 2.5 g/dL Normal 2.2-4.2 [facility] Comment on above: Performed By: #### L 500.2500, L501.7300, L100.0100, L500.3400, L501.2450 ####[facility] [address] [place], [address] T PROT 6.9 g/dL Normal 5.9-8.4 [facility] Comment on above: Performed By: #### L 500.2500, L501.7300, L100.0100, L500.3400, L501.2450 ####[facility] [address] [place], [address] Osmolality, Serumon 03-06-20 25 OSMOLALITY,SER 325 mOsm/KG High 275-295 [facility] Comment on above: Performed By: #### L 500.2500, L501.7300, L100.0100, L500.3400, L501.2450 ####[facility] [address] [place], [address] Venous Blood Gason 5 VBG pCO2 8.2 mmHg Invalid Interpretation Code 41-51 [facility] Comment on above: Performed By: #### L 9000.0810 ####[facility] [address] [place], [address] Bedside Glucoseon 03-05-2025 FINGERSTICK GLU 91 mg/dL Normal 74-106 [facility] Comment on above: Result Comment: EDGAR HUNG OF PATIENT CARE PER NURSING PROTOCOL Performed By: #### L 501.080 ####[facility] [address] [place], [address] Colonoscopy Reporton 025 Colonoscopy Report Normal [facility] EGD Reporton 03-05-2025 EGD Report Normal [facility] Immunohistochemical Stainson 03-05-2025 Immunohistochemical Stains Normal [facility] Comment on above: Performed By: #### P IMHI ####[facility] [address] [place], [address] MR/POSTOP.ANEon 03-05-2025 MR/POSTOP.ANE Normal [facility] MR/ZSGLLJNY8fj 03-05-2025 MR/POSTOPAN2 Normal [facility] MR/PAT.ANEon 03-04-2025 MR/PAT.ANE Normal [facility] CBC W/Diff, Automatedon Absolute Lymph 2.23 X10 3/uL Normal 0.83-4.51 [facility] Comment on above: Performed By: #### L 500.4050, L501.5200, L100.0100 ####[facility] [address] [place], [address] Absolute Neut 9.6 X10 3/uL High 2.0-7.7 [facility] Comment on above: Performed By: #### L 500.4050, L501.5200, L100.0100 ####[facility] [address] [place], [address] Basophils/100 WBC (Bld) 0.4 % Normal 0-1 [facility] Comment on above: Performed By: #### L 500.4050, L501.5200, L100.0100 ####[facility] [address] [place], [address] Eosinophils/100 WBC (Bld) 2.7 % Normal 0-5 [facility] Comment on above: Performed By: #### L 500.4050, L501.5200, L100.0100 ####[facility] [address] [place], [address] Erythrocyte distribution width (RBC) [Ratio] 13.7 % Normal 11.6-14.6 [facility] Comment on above: Performed By: #### L 500.4050, L501.5200, L100.0100 ####[facility] [address] [place], [address] Hematocrit (Bld) [Volume fraction] 43.5 % Normal 37-47 [facility] Comment on above: Performed By: #### L 500.4050, L501.5200, L100.0100 ####[facility] [address] [place], [address] Hemoglobin (Bld) [Mass/Vol] 14.2 g/dL Normal 12.0-15.0 [facility] Comment on above: Performed By: #### L 500.4050, L501.5200, L100.0100 ####[facility] [address] [place], [address] IG% 1.800 High 0.0-0.9 [facility] Comment on above: Result Comment: IG% - Immature Granulocytes (promyelocytes, myelocytes andmetamyelocytes) > 1% indicates that a LEFT SHIFT is Present. Performed By: #### L 500.4050, L501.5200, L100.0100 ####[facility] [address] [place], [address] Lymphocytes/100 WBC (Bld) 17.1 % Low 19-41 [facility] Comment on above: Performed By: #### L 500.4050, L501.5200, L100.0100 ####[facility] [address] [place], [address] MCH (RBC) [Entitic mass] 29.3 pg Normal 27.0-32.0 [facility] Comment on above: Performed By: #### L 500.4050, L501.5200, L100.0100 ####[facility] [address] [place], [address] MCHC (RBC) [Mass/Vol] 32.6 g/dL Normal 32-36 [facility] Comment on above: Performed By: #### L 500.4050, L501.5200, L100.0100 ####[facility] [address] [place], [address] MCV (RBC) [Entitic vol] 89.9 fL Normal 81-99 [facility] Comment on above: Performed By: #### L 500.4050, L501.5200, L100.0100 ####[facility] [address] [place], [address] Monocytes/100 WBC (Bld) 4.6 % Normal 0-10 [facility] Comment on above: Performed By: #### L 500.4050, L501.5200, L100.0100 ####[facility] [address] [place], [address] Neutrophils/100 WBC (Bld) 73.4 % High 47-70 [facility] Comment on above: Performed By: #### L 500.4050, L501.5200, L100.0100 ####[facility] [address] [place], [address] Nucleated RBC (Bld) [#/Vol] 0 10*3/uL Normal 0-5 [facility] Comment on above: Performed By: #### L 500.4050, L501.5200, L100.0100 ####[facility] [address] [place], [address] Platelet mean volume (Bld) [Entitic vol] 12.2 fL High 6.2-12.0 [facility] Comment on above: Performed By: #### L 500.4050, L501.5200, L100.0100 ####[facility] [address] [place], [address] Platelets (Bld) [#/Vol] 201 10*3/uL Normal 150-450 [facility] Comment on above: Performed By: #### L 500.4050, L501.5200, L100.0100 ####[facility] [address] [place], [address] RBC (Bld) [#/Vol] 4.84 10*6/uL Normal 4.2-5.4 [facility] Comment on above: Performed By: #### L 500.4050, L501.5200, L100.0100 ####[facility] [address] [place], [address] RDW SD 44.5 fl High 35.1-43.9 [facility] Comment on above: Performed By: #### L 500.4050, L501.5200, L100.0100 ####[facility] [address] [place], [address] WBC (Bld) [#/Vol] 13.1 10*3/uL High 4.4-11.0 [facility] Comment on above: Performed By: #### L 500.4050, L501.5200, L100.0100 ####[facility] [address] [place], [address] Comprehensive Metabolic Prof ilon 02-25-2025 Albumin [Mass/Vol] 4.2 g/dL Normal 3.5-5.0 [facility] Comment on above: Performed By: #### L 500.4050, L501.5200, L100.0100 ####[facility] [address] [place], [address] Albumin/Globulin [Mass ratio] 1.6 {ratio} Normal 0.9-2.4 [facility] Comment on above: Performed By: #### L 500.4050, L501.5200, L100.0100 ####[facility] [address] [place], [address] ALK PHOS 77 U/L Normal 35-104 [facility] Comment on above: Performed By: #### L 500.4050, L501.5200, L100.0100 ####[facility] [address] [place], [address] ALT [Catalytic activity/Vol] 7 U/L Normal <=34 [facility] Comment on above: Performed By: #### L 500.4050, L501.5200, L100.0100 ####[facility] [address] [place], [address] AST [Catalytic activity/Vol] 15 U/L Normal <=31 [facility] Comment on above: Performed By: #### L 500.4050, L501.5200, L100.0100 ####[facility] [address] [place], [address] Bilirubin [Mass/Vol] 0.71 mg/dL Normal 0.00-1.30 [facility] Comment on above: Performed By: #### L 500.4050, L501.5200, L100.0100 ####[facility] [address] [place], [address] BUN/CRE 18.7 RATIO Normal 10-20 [facility] Comment on above: Performed By: #### L 500.4050, L501.5200, L100.0100 ####[facility] [address] [place], [address] Calcium [Mass/Vol] 9.2 mg/dL Normal 7.6-11.0 [facility] Comment on above: Performed By: #### L 500.4050, L501.5200, L100.0100 ####[facility] [address] [place], [address] Chloride [Moles/Vol] 104 mmol/L Normal 98-108 [facility] Comment on above: Performed By: #### L 500.4050, L501.5200, L100.0100 ####[facility] [address] [place], [address] CO2 [Moles/Vol] 20.2 mmol/L Low 21.0-32.0 [facility] Comment on above: Performed By: #### L 500.4050, L501.5200, L100.0100 ####[facility] [address] [place], [address] Creatinine [Mass/Vol] 0.63 mg/dL Low 0.70-1.20 [facility] Comment on above: Performed By: #### L 500.4050, L501.5200, L100.0100 ####[facility] [address] [place], [address] GAP 14 Normal 5-15 [facility] Comment on above: Performed By: #### L 500.4050, L501.5200, L100.0100 ####[facility] [address] [place], [address] GFR/1.73 sq M.predicted among non-blacks MDRD (S/P/Bld) [Vol rate/Area] 122 mL/min/{1.73_m2} Normal >60 [facility] Comment on above: Result Comment: mL/m in/1.73m2 CKD-EPI Creatinine Equation (2020) Performed By: #### L 500.4050, L501.5200, L100.0100 ####[facility] [address] [place], [address] Globulin (S) [Mass/Vol] 2.6 g/dL Normal 2.2-4.2 [facility] Comment on above: Performed By: #### L 500.4050, L501.5200, L100.0100 ####[facility] [address] [place], [address] Glucose [Mass/Vol] 153 mg/dL High 70-99 [facility] Comment on above: Performed By: #### L 500.4050, L501.5200, L100.0100 ####[facility] [address] [place], [address] Potassium [Moles/Vol] 3.9 mmol/L Normal 3.3-5.1 [facility] Comment on above: Performed By: #### L 500.4050, L501.5200, L100.0100 ####[facility] [address] [place], [address] Sodium [Moles/Vol] 138 mmol/L Normal 133-145 [facility] Comment on above: Performed By: #### L 500.4050, L501.5200, L100.0100 ####[facility] [address] [place], [address] T PROT 6.7 g/dL Normal 5.9-8.4 [facility] Comment on above: Performed By: #### L 500.4050, L501.5200, L100.0100 ####[facility] [address] [place], [address] Urea nitrogen [Mass/Vol] 12 mg/dL Normal 4-19 [facility] Comment on above: Performed By: #### L 500.4050, L501.5200, L100.0100 ####[facility] [address] [place], [address] Magnesiumon 02-25-2025 Magnesium [Mass/Vol] 2.2 mg/dL Normal 1.5-2.2 [facility] Comment on above: Performed By: #### L 500.4050, L501.5200, L100.0100 ####[facility] [address] [place], [address] Discharge Instructionon 01-27 Discharge Instruction Normal [facility] Basic Metabolic Profile (BMP )on 02-20-2025 BUN Normal 4-19 [facility] Comment on above: Result Comment: Canc elled via OM: Order cancelled - Patient discharged Performed By: #### L 100.0500, L500.2500 ####[facility] [address] [place], [address] BUN/CRE Normal 10-20 [facility] Comment on above: Result Comment: Canc elled via OM: Order cancelled - Patient discharged Performed By: #### L 100.0500, L500.2500 ####[facility] [address] [place], [address] Calcium Normal 7.6-11.0 [facility] Comment on above: Result Comment: Canc elled via OM: Order cancelled - Patient discharged Performed By: #### L 100.0500, L500.2500 ####[facility] [address] [place], [address] CL Normal 98-108 [facility] Comment on above: Result Comment: Canc elled via OM: Order cancelled - Patient discharged Performed By: #### L 100.0500, L500.2500 ####[facility] [address] [place], [address] CO2 Normal 21.0-32.0 [facility] Comment on above: Result Comment: Canc elled via OM: Order cancelled - Patient discharged Performed By: #### L 100.0500, L500.2500 ####[facility] [address] [place], [address] CREAT,SERUM Normal 0.70-1.20 [facility] Comment on above: Result Comment: Canc elled via OM: Order cancelled - Patient discharged Performed By: #### L 100.0500, L500.2500 ####[facility] [address] [place], [address] eGFR Normal >60 [facility] Comment on above: Result Comment: Canc elled via OM: Order cancelled - Patient discharged Performed By: #### L 100.0500, L500.2500 ####[facility] [address] [place], [address] GAP Normal 5-15 [facility] Comment on above: Result Comment: Canc elled via OM: Order cancelled - Patient discharged Performed By: #### L 100.0500, L500.2500 ####[facility] [address] [place], [address] GLU Normal 70-99 [facility] Comment on above: Result Comment: Canc elled via OM: Order cancelled - Patient discharged Performed By: #### L 100.0500, L500.2500 ####[facility] [address] [place], [address] Potassium Normal 3.3-5.1 [facility] Comment on above: Result Comment: Canc elled via OM: Order cancelled - Patient discharged Performed By: #### L 100.0500, L500.2500 ####[facility] [address] [place], [address] Basic Metabolic Profile (BMP) Normal 133-145 [facility] Comment on above: Result Comment: Canc elled via OM: Order cancelled - Patient discharged Performed By: #### L 100.0500, L500.2500 ####[facility] [address] [place], [address] Bedside Glucoseon 02-20-2025 FINGERSTICK GLU 143 mg/dL High 74-106 [facility] Comment on above: Result Comment: EDGAR HUNG OF PATIENT CARE PER NURSING PROTOCOL Performed By: #### L 501.080 ####[facility] [address] [place], [address] CBC-Complete Blood Cnt No Di ffon 02-20-2025 HCT Normal 37-47 [facility] Comment on above: Result Comment: Canc elled via OM: Order cancelled - Patient discharged Performed By: #### L 100.0500, L500.2500 ####[facility] [address] [place], [address] HGB Normal 12.0-15.0 [facility] Comment on above: Result Comment: Canc elled via OM: Order cancelled - Patient discharged Performed By: #### L 100.0500, L500.2500 ####[facility] [address] [place], [address] MCH Normal 27.0-32.0 [facility] Comment on above: Result Comment: Canc elled via OM: Order cancelled - Patient discharged Performed By: #### L 100.0500, L500.2500 ####[facility] [address] [place], [address] MCHC Normal 32-36 [facility] Comment on above: Result Comment: Canc elled via OM: Order cancelled - Patient discharged Performed By: #### L 100.0500, L500.2500 ####[facility] [address] [place], [address] MCV Normal 81-99 [facility] Comment on above: Result Comment: Canc elled via OM: Order cancelled - Patient discharged Performed By: #### L 100.0500, L500.2500 ####[facility] [address] [place], [address] PLT Normal 150-450 [facility] Comment on above: Result Comment: Canc elled via OM: Order cancelled - Patient discharged Performed By: #### L 100.0500, L500.2500 ####[facility] [address] [place], [address] RBC Normal 4.2-5.4 [facility] Comment on above: Result Comment: Canc elled via OM: Order cancelled - Patient discharged Performed By: #### L 100.0500, L500.2500 ####[facility] [address] [place], [address] RDW CV Normal 11.6-14.6 [facility] Comment on above: Result Comment: Canc elled via OM: Order cancelled - Patient discharged Performed By: #### L 100.0500, L500.2500 ####[facility] [address] [place], [address] RDW SD Normal 35.1-43.9 [facility] Comment on above: Result Comment: Canc elled via OM: Order cancelled - Patient discharged Performed By: #### L 100.0500, L500.2500 ####[facility] [address] [place], [address] WBC Normal 4.4-11.0 [facility] Comment on above: Result Comment: Canc elled via OM: Order cancelled - Patient discharged Performed By: #### L 100.0500, L500.2500 ####[facility] [address] [place], [address] Basic Metabolic Profile (BMP )on 02-19-2025 BUN Normal 4-19 [facility] Comment on above: Result Comment: Canc elled via OM: insulin off Performed By: #### L 500.2500 ####[facility] [address] [place], [address] Order Comment: Call MD with results STAT Result Comment: Canc elled via OM: MD Ordered Result Comment: OM C ANCEL REQUEST BUN/CRE Normal 10-20 [facility] Comment on above: Result Comment: Canc elled via OM: insulin off Performed By: #### L 500.2500 ####[facility] [address] [place], [address] Order Comment: Call MD with results STAT Result Comment: Canc elled via OM: MD Ordered Result Comment: OM C ANCEL REQUEST Calcium Normal 7.6-11.0 [facility] Comment on above: Result Comment: Canc elled via OM: insulin off Performed By: #### L 500.2500 ####[facility] [address] [place], [address] Order Comment: Call MD with results STAT Result Comment: Canc elled via OM: MD Ordered Result Comment: OM C ANCEL REQUEST CL Normal 98-108 [facility] Comment on above: Result Comment: Canc elled via OM: insulin off Performed By: #### L 500.2500 ####[facility] [address] [place] [id number] Order Comment: Call MD with results STAT Result Comment: Canc elled via OM: MD Ordered Result Comment: OM C ANCEL REQUEST CO2 Normal 21.0-32.0 [facility] Comment on above: Result Comment: Canc elled via OM: insulin off Performed By: #### L 500.2500 ####[facility] [address] [place], [address] Order Comment: Call MD with results STAT Result Comment: Canc elled via OM: MD Ordered Result Comment: OM C ANCEL REQUEST CREAT,SERUM Normal 0.70-1.20 [facility] Comment on above: Result Comment: Canc elled via OM: insulin off Performed By: #### L 500.2500 ####[facility] [address] [place], [address] Order Comment: Call MD with results STAT Result Comment: Canc elled via OM: MD Ordered Result Comment: OM C ANCEL REQUEST eGFR Normal >60 [facility] Comment on above: Result Comment: Canc elled via OM: insulin off Performed By: #### L 500.2500 ####[facility] [address] [place], [address] Order Comment: Call MD with results STAT Result Comment: Canc elled via OM: MD Ordered Result Comment: OM C ANCEL REQUEST GAP Normal 5-15 [facility] Comment on above: Result Comment: Canc elled via OM: insulin off Performed By: #### L 500.2500 ####[facility] [address] [place], [address] Order Comment: Call MD with results STAT Result Comment: Canc elled via OM: MD Ordered Result Comment: OM C ANCEL REQUEST GLU Normal 70-99 [facility] Comment on above: Result Comment: Canc elled via OM: insulin off Performed By: #### L 500.2500 ####[facility] [address] [place], [address] Order Comment: Call MD with results STAT Result Comment: Canc elled via OM: MD Ordered Result Comment: OM C ANCEL REQUEST Potassium Normal 3.3-5.1 [facility] Comment on above: Result Comment: Canc elled via OM: insulin off Performed By: #### L 500.2500 ####[facility] [address] [place], [address] Order Comment: Call MD with results STAT Result Comment: Canc elled via OM: MD Ordered Result Comment: OM C ANCEL REQUEST Basic Metabolic Profile (BMP) Normal 133-145 [facility] Comment on above: Result Comment: Canc elled via OM: insulin off Performed By: #### L 500.2500 ####[facility] [address] [place], [address] Order Comment: Call MD with results STAT Result Comment: Canc elled via OM: MD Ordered Result Comment: OM C ANCEL REQUEST BUN/CRE 8.8 RATIO Low 10-20 [facility] Comment on above: Performed By: #### L 500.2500 ####[facility] [address] [place], [address] Calcium [Mass/Vol] 8.5 mg/dL Normal 7.6-11.0 [facility] Comment on above: Performed By: #### L 500.2500 ####[facility] [address] [place], [address] Chloride [Moles/Vol] 107 mmol/L Normal 98-108 [facility] Comment on above: Performed By: #### L 500.2500 ####[facility] [address] [place], [address] CO2 [Moles/Vol] 18.6 mmol/L Low 21.0-32.0 [facility] Comment on above: Performed By: #### L 500.2500 ####[facility] [address] [place], [address] Creatinine [Mass/Vol] 0.63 mg/dL Low 0.70-1.20 [facility] Comment on above: Performed By: #### L 500.2500 ####[facility] [address] [place], [address] ECRCL 136.46 ml/min Normal 50-250 [facility] Comment on above: Performed By: #### L 500.2500 ####[facility] [address] [place], [address] GAP 13 Normal 5-15 [facility] Comment on above: Performed By: #### L 500.2500 ####[facility] [address] [place], [address] GFR/1.73 sq M.predicted among non-blacks MDRD (S/P/Bld) [Vol rate/Area] 122 mL/min/{1.73_m2} Normal >60 [facility] Comment on above: Result Comment: mL/m in/1.73m2 CKD-EPI Creatinine Equation (2020) Performed By: #### L 500.2500 ####[facility] [address] [place], [address] Glucose [Mass/Vol] 249 mg/dL High 70-99 [facility] Comment on above: Performed By: #### L 500.2500 ####[facility] [address] [place], [address] Potassium [Moles/Vol] 4.1 mmol/L Normal 3.3-5.1 [facility] Comment on above: Performed By: #### L 500.2500 ####[facility] [address] [place], [address] Sodium [Moles/Vol] 138 mmol/L Normal 133-145 [facility] Comment on above: Performed By: #### L 500.2500 ####[facility] [address] [place], [address] Urea nitrogen [Mass/Vol] 6 mg/dL Normal 4-19 [facility] Comment on above: Performed By: #### L 500.2500 ####[facility] [address] [place], [address] BUN/CRE 10.8 RATIO Normal 10-20 [facility] Comment on above: Performed By: #### L 100.0100, L501.5200, L500.2500 ####[facility] [address] [place], [address] Calcium [Mass/Vol] 8.0 mg/dL Normal 7.6-11.0 [facility] Comment on above: Performed By: #### L 100.0100, L501.5200, L500.2500 ####[facility] [address] [place], [address] Chloride [Moles/Vol] 112 mmol/L High 98-108 [facility] Comment on above: Performed By: #### L 100.0100, L501.5200, L500.2500 ####[facility] [address] [place], [address] CO2 [Moles/Vol] 17.1 mmol/L Low 21.0-32.0 [facility] Comment on above: Performed By: #### L 100.0100, L501.5200, L500.2500 ####[facility] [address] [place], [address] Creatinine [Mass/Vol] 0.57 mg/dL Low 0.70-1.20 [facility] Comment on above: Performed By: #### L 100.0100, L501.5200, L500.2500 ####[facility] [address] [place], [address] ECRCL 150.82 ml/min Normal 50-250 [facility] Comment on above: Performed By: #### L 100.0100, L501.5200, L500.2500 ####[facility] [address] [place], [address] GAP 10 Normal 5-15 [facility] Comment on above: Performed By: #### L 100.0100, L501.5200, L500.2500 ####[facility] [address] [place], [address] GFR/1.73 sq M.predicted among non-blacks MDRD (S/P/Bld) [Vol rate/Area] 126 mL/min/{1.73_m2} Normal >60 [facility] Comment on above: Result Comment: mL/m in/1.73m2 CKD-EPI Creatinine Equation (2020) Performed By: #### L 100.0100, L501.5200, L500.2500 ####[facility] [address] [place], [address] Glucose [Mass/Vol] 81 mg/dL Normal 70-99 [facility] Comment on above: Performed By: #### L 100.0100, L501.5200, L500.2500 ####[facility] [address] [place], [address] Potassium [Moles/Vol] 4.0 mmol/L Normal 3.3-5.1 [facility] Comment on above: Result Comment: Hemo lysis present, Results??could be affected.?? Performed By: #### L 100.0100, L501.5200, L500.2500 ####[facility] [address] [place], [address] Sodium [Moles/Vol] 139 mmol/L Normal 133-145 [facility] Comment on above: Performed By: #### L 100.0100, L501.5200, L500.2500 ####[facility] [address] [place], [address] Urea nitrogen [Mass/Vol] 6 mg/dL Normal 4-19 [facility] Comment on above: Performed By: #### L 100.0100, L501.5200, L500.2500 ####[facility] [address] [place], [address] BUN Normal 4-19 [facility] Comment on above: Order Comment: Call MD with results STAT Result Comment: OM C ANCEL REQUEST Performed By: #### L 500.2500 ####[facility] [address] [place], [address] BUN/CRE Normal 10-20 [facility] Comment on above: Order Comment: Call MD with results STAT Result Comment: OM C ANCEL REQUEST Performed By: #### L 500.2500 ####[facility] [address] [place], [address] Calcium Normal 7.6-11.0 [facility] Comment on above: Order Comment: Call MD with results STAT Result Comment: OM C ANCEL REQUEST Performed By: #### L 500.2500 ####[facility] [address] [place], [address] CL Normal 98-108 [facility] Comment on above: Order Comment: Call MD with results STAT Result Comment: OM C ANCEL REQUEST Performed By: #### L 500.2500 ####[facility] [address] [place], [address] CO2 Normal 21.0-32.0 [facility] Comment on above: Order Comment: Call MD with results STAT Result Comment: OM C ANCEL REQUEST Performed By: #### L 500.2500 ####[facility] [address] [place], [address] CREAT,SERUM Normal 0.70-1.20 [facility] Comment on above: Order Comment: Call MD with results STAT Result Comment: OM C ANCEL REQUEST Performed By: #### L 500.2500 ####[facility] [address] [place], [address] eGFR Normal >60 [facility] Comment on above: Order Comment: Call MD with results STAT Result Comment: OM C ANCEL REQUEST Performed By: #### L 500.2500 ####[facility] [address] [place], [address] GAP Normal 5-15 [facility] Comment on above: Order Comment: Call MD with results STAT Result Comment: OM C ANCEL REQUEST Performed By: #### L 500.2500 ####[facility] [address] [place], [address] GLU Normal 70-99 [facility] Comment on above: Order Comment: Call MD with results STAT Result Comment: OM C ANCEL REQUEST Performed By: #### L 500.2500 ####[facility] [address] [place], [address] Potassium Normal 3.3-5.1 [facility] Comment on above: Order Comment: Call MD with results STAT Result Comment: OM C ANCEL REQUEST Performed By: #### L 500.2500 ####[facility] [address] [place], [address] Basic Metabolic Profile (BMP) Normal 133-145 [facility] Comment on above: Order Comment: Call MD with results STAT Result Comment: OSMAN ZAPIEN REQUEST Performed By: #### L 500.2500 ####[facility] [address] [place], [address] BUN/CRE 13.3 RATIO Normal 10-20 [facility] Comment on above: Order Comment: Call MD with results STAT Performed By: #### L 500.2500 ####[facility] [address] [place], [address] Calcium [Mass/Vol] 8.1 mg/dL Normal 7.6-11.0 [facility] Comment on above: Order Comment: Call MD with results STAT Performed By: #### L 500.2500 ####[facility] [address] [place], [address] Chloride [Moles/Vol] 108 mmol/L Normal 98-108 [facility] Comment on above: Order Comment: Call MD with results STAT Performed By: #### L 500.2500 ####[facility] [address] [place], [address] CO2 [Moles/Vol] 17.8 mmol/L Low 21.0-32.0 [facility] Comment on above: Order Comment: Call MD with results STAT Performed By: #### L 500.2500 ####[facility] [address] [place], [address] Creatinine [Mass/Vol] 0.56 mg/dL Low 0.70-1.20 [facility] Comment on above: Order Comment: Call MD with results STAT Performed By: #### L 500.2500 ####[facility] [address] [place], [address] ECRCL 153.51 ml/min Normal 50-250 [facility] Comment on above: Order Comment: Call MD with results STAT Performed By: #### L 500.2500 ####[facility] [address] [place], [address] GAP 12 Normal 5-15 [facility] Comment on above: Order Comment: Call MD with results STAT Performed By: #### L 500.2500 ####[facility] [address] [place], [address] GFR/1.73 sq M.predicted among non-blacks MDRD (S/P/Bld) [Vol rate/Area] 126 mL/min/{1.73_m2} Normal >60 [facility] Comment on above: Order Comment: Call MD with results STAT Result Comment: mL/m in/1.73m2 CKD-EPI Creatinine Equation (2020) Performed By: #### L 500.2500 ####[facility] [address] [place], [address] Glucose [Mass/Vol] 126 mg/dL High 70-99 [facility] Comment on above: Order Comment: Call MD with results STAT Performed By: #### L 500.2500 ####[facility] [address] [place], [address] Potassium [Moles/Vol] 3.7 mmol/L Normal 3.3-5.1 [facility] Comment on above: Order Comment: Call MD with results STAT Performed By: #### L 500.2500 ####[facility] [address] [place], [address] Sodium [Moles/Vol] 137 mmol/L Normal 133-145 [facility] Comment on above: Order Comment: Call MD with results STAT Performed By: #### L 500.2500 ####[facility] [address] [place], [address] Urea nitrogen [Mass/Vol] 7 mg/dL Normal 4-19 [facility] Comment on above: Order Comment: Call MD with results STAT Performed By: #### L 500.2500 ####[facility] [address] [place], [address] Bedside Glucoseon 02-19-2025 FINGERSTICK GLU 141 mg/dL High 74-106 [facility] Comment on above: Result Comment: EDGAR GEMENT OF PATIENT CARE PER NURSING PROTOCOL Performed By: #### L 501.080 ####[facility] [address] [place], [address] FINGERSTICK GLU 222 mg/dL High 74-106 [facility] Comment on above: Result Comment: EDGAR GEMENT OF PATIENT CARE PER NURSING PROTOCOL Performed By: #### L 501.080 ####[facility] [address] [place], [address] FINGERSTICK GLU 242 mg/dL High 74-106 [facility] Comment on above: Result Comment: EDGAR GEMENT OF PATIENT CARE PER NURSING PROTOCOL Performed By: #### L 501.080 ####[facility] [address] [place], [address] FINGERSTICK GLU 146 mg/dL High 74-106 [facility] Comment on above: Result Comment: EDGAR GEMENT OF PATIENT CARE PER NURSING PROTOCOL Performed By: #### L 501.080 ####[facility] [address] [place], [address] FINGERSTICK GLU 59 mg/dL Low 74-106 [facility] Comment on above: Result Comment: EDGAR GEMENT OF PATIENT CARE PER NURSING PROTOCOL Performed By: #### L 501.080 ####[facility] [address] [place], [address] FINGERSTICK GLU 93 mg/dL Normal 74-106 [facility] Comment on above: Result Comment: EDGAR GEMENT OF PATIENT CARE PER NURSING PROTOCOL Performed By: #### L 501.080 ####[facility] [address] [place], [address] FINGERSTICK GLU 143 mg/dL High 74-106 [facility] Comment on above: Result Comment: EDGAR GEMENT OF PATIENT CARE PER NURSING PROTOCOL Performed By: #### L 501.080 ####[facility] [address] [place], [address] FINGERSTICK GLU 59 mg/dL Low 74-106 [facility] Comment on above: Result Comment: EDGAR GEMENT OF PATIENT CARE PER NURSING PROTOCOL Performed By: #### L 501.080 ####[facility] [address] [place], [address] FINGERSTICK GLU 76 mg/dL Normal 74-106 [facility] Comment on above: Result Comment: EDGAR GEMENT OF PATIENT CARE PER NURSING PROTOCOL Performed By: #### L 501.080 ####[facility] [address] [place], [address] FINGERSTICK GLU 89 mg/dL Normal 74-106 [facility] Comment on above: Result Comment: EDGAR GEMENT OF PATIENT CARE PER NURSING PROTOCOL Performed By: #### L 501.080 ####[facility] [address] [place], [address] FINGERSTICK GLU 118 mg/dL High 74-106 [facility] Comment on above: Result Comment: EDGAR GEMENT OF PATIENT CARE PER NURSING PROTOCOL Performed By: #### L 501.080 ####[facility] [address] [place], [address] FINGERSTICK GLU 111 mg/dL High 74-106 [facility] Comment on above: Result Comment: EDGAR GEMENT OF PATIENT CARE PER NURSING PROTOCOL Performed By: #### L 501.080 ####[facility] [address] [place], [address] FINGERSTICK GLU 123 mg/dL High 74-106 [facility] Comment on above: Result Comment: EDGAR GEMENT OF PATIENT CARE PER NURSING PROTOCOL Performed By: #### L 501.080 ####[facility] [address] [place], [address] CBC W/Diff, Automatedon 06-2 -2024 Absolute Lymph 1.08 X10 3/uL Normal 0.83-4.51 [facility] Comment on above: Performed By: #### L 100.0100, L501.5200, L500.2500 ####[facility] [address] [place], [address] Absolute Neut 18.3 X10 3/uL High 2.0-7.7 [facility] Comment on above: Performed By: #### L 100.0100, L501.5200, L500.2500 ####[facility] [address] [place], [address] Basophils/100 WBC (Bld) 0.2 % Normal 0-1 [facility] Comment on above: Performed By: #### L 100.0100, L501.5200, L500.2500 ####[facility] [address] [place], [address] Eosinophils/100 WBC (Bld) 0.0 % Normal 0-5 [facility] Comment on above: Performed By: #### L 100.0100, L501.5200, L500.2500 ####[facility] [address] [place], [address] Erythrocyte distribution width (RBC) [Ratio] 13.4 % Normal 11.6-14.6 [facility] Comment on above: Performed By: #### L 100.0100, L501.5200, L500.2500 ####[facility] [address] [place], [address] Hematocrit (Bld) [Volume fraction] 35.4 % Low 37-47 [facility] Comment on above: Performed By: #### L 100.0100, L501.5200, L500.2500 ####[facility] [address] [place], [address] Hemoglobin (Bld) [Mass/Vol] 11.8 g/dL Low 12.0-15.0 [facility] Comment on above: Performed By: #### L 100.0100, L501.5200, L500.2500 ####[facility] [address] [place], [address] IG% 1.000 High 0.0-0.9 [facility] Comment on above: Result Comment: IG% - Immature Granulocytes (promyelocytes, myelocytes andmetamyelocytes) > 1% indicates that a LEFT SHIFT is Present. Performed By: #### L 100.0100, L501.5200, L500.2500 ####[facility] [address] [place], [address] Lymphocytes/100 WBC (Bld) 5.3 % Low 19-41 [facility] Comment on above: Performed By: #### L 100.0100, L501.5200, L500.2500 ####[facility] [address] [place], [address] MCH (RBC) [Entitic mass] 29.7 pg Normal 27.0-32.0 [facility] Comment on above: Performed By: #### L 100.0100, L501.5200, L500.2500 ####[facility] [address] [place], [address] MCHC (RBC) [Mass/Vol] 33.3 g/dL Normal 32-36 [facility] Comment on above: Performed By: #### L 100.0100, L501.5200, L500.2500 ####[facility] [address] [place], [address] MCV (RBC) [Entitic vol] 89.2 fL Normal 81-99 [facility] Comment on above: Performed By: #### L 100.0100, L501.5200, L500.2500 ####[facility] [address] [place], [address] Monocytes/100 WBC (Bld) 4.1 % Normal 0-10 [facility] Comment on above: Performed By: #### L 100.0100, L501.5200, L500.2500 ####[facility] [address] [place], [address] Neutrophils/100 WBC (Bld) 89.4 % High 47-70 [facility] Comment on above: Performed By: #### L 100.0100, L501.5200, L500.2500 ####[facility] [address] [place], [address] Nucleated RBC (Bld) [#/Vol] 0 10*3/uL Normal 0-5 [facility] Comment on above: Performed By: #### L 100.0100, L501.5200, L500.2500 ####[facility] [address] [place], [address] Platelet mean volume (Bld) [Entitic vol] 11.5 fL Normal 6.2-12.0 [facility] Comment on above: Performed By: #### L 100.0100, L501.5200, L500.2500 ####[facility] [address] [place], [address] Platelets (Bld) [#/Vol] 188 10*3/uL Normal 150-450 [facility] Comment on above: Performed By: #### L 100.0100, L501.5200, L500.2500 ####[facility] [address] [place], [address] RBC (Bld) [#/Vol] 3.97 10*6/uL Low 4.2-5.4 [facility] Comment on above: Performed By: #### L 100.0100, L501.5200, L500.2500 ####[facility] [address] [place], [address] RDW SD 43.9 fl Normal 35.1-43.9 [facility] Comment on above: Performed By: #### L 100.0100, L501.5200, L500.2500 ####[facility] [address] [place], [address] WBC (Bld) [#/Vol] 20.5 10*3/uL High 4.4-11.0 [facility] Comment on above: Performed By: #### L 100.0100, L501.5200, L500.2500 ####[facility] [address] [place], [address] Magnesiumon 02-19-2025 Magnesium [Mass/Vol] 2.9 mg/dL High 1.5-2.2 [facility] Comment on above: Performed By: #### L 100.0100, L501.5200, L500.2500 ####[facility] [address] [place], [address] 12 Lead EKGon 02-18-2025 12 Lead EKG Normal [facility] Basic Metabolic Profile (BMP )on 02-18-2025 BUN/CRE 16.4 RATIO Normal 10-20 [facility] Comment on above: Order Comment: Call MD with results STAT Performed By: #### L 500.2500 ####[facility] [address] [place], [address] Calcium [Mass/Vol] 7.8 mg/dL Normal 7.6-11.0 [facility] Comment on above: Order Comment: Call MD with results STAT Performed By: #### L 500.2500 ####[facility] [address] [place], [address] Chloride [Moles/Vol] 107 mmol/L Normal 98-108 [facility] Comment on above: Order Comment: Call MD with results STAT Performed By: #### L 500.2500 ####[facility] [address] [place], [address] CO2 [Moles/Vol] 17.2 mmol/L Low 21.0-32.0 [facility] Comment on above: Order Comment: Call MD with results STAT Performed By: #### L 500.2500 ####[facility] [address] [place], [address] Creatinine [Mass/Vol] 0.57 mg/dL Low 0.70-1.20 [facility] Comment on above: Order Comment: Call MD with results STAT Performed By: #### L 500.2500 ####[facility] [address] [place], [address] ECRCL 150.82 ml/min Normal 50-250 [facility] Comment on above: Order Comment: Call MD with results STAT Performed By: #### L 500.2500 ####[facility] [address] [place], [address] GAP 12 Normal 5-15 [facility] Comment on above: Order Comment: Call MD with results STAT Performed By: #### L 500.2500 ####[facility] [address] [place], [address] GFR/1.73 sq M.predicted among non-blacks MDRD (S/P/Bld) [Vol rate/Area] 125 mL/min/{1.73_m2} Normal >60 [facility] Comment on above: Order Comment: Call MD with results STAT Result Comment: mL/m in/1.73m2 CKD-EPI Creatinine Equation (2020) Performed By: #### L 500.2500 ####[facility] [address] [place], [address] Glucose [Mass/Vol] 111 mg/dL High 70-99 [facility] Comment on above: Order Comment: Call MD with results STAT Performed By: #### L 500.2500 ####[facility] [address] [place], [address] Potassium [Moles/Vol] 3.9 mmol/L Normal 3.3-5.1 [facility] Comment on above: Order Comment: Call MD with results STAT Performed By: #### L 500.2500 ####[facility] [address] [place], [address] Sodium [Moles/Vol] 137 mmol/L Normal 133-145 [facility] Comment on above: Order Comment: Call MD with results STAT Performed By: #### L 500.2500 ####[facility] [address] [place], [address] Urea nitrogen [Mass/Vol] 9 mg/dL Normal 4-19 [facility] Comment on above: Order Comment: Call MD with results STAT Performed By: #### L 500.2500 ####[facility] [address] [place], [address] Bedside Glucoseon 02-18-2025 FINGERSTICK GLU 125 mg/dL High 74-106 [facility] Comment on above: Result Comment: EDGAR GEMENT OF PATIENT CARE PER NURSING PROTOCOL Performed By: #### L 501.080 ####[facility] [address] [place], [address] FINGERSTICK GLU 121 mg/dL High 74-106 [facility] Comment on above: Result Comment: EDGAR GEMENT OF PATIENT CARE PER NURSING PROTOCOL Performed By: #### L 501.080 ####[facility] [address] [place], [address] FINGERSTICK GLU 93 mg/dL Normal 74-106 [facility] Comment on above: Result Comment: EDGAR GEMENT OF PATIENT CARE PER NURSING PROTOCOL Performed By: #### L 501.080 ####[facility] [address] [place], [address] FINGERSTICK GLU 97 mg/dL Normal 74-106 [facility] Comment on above: Result Comment: EDGAR GEMENT OF PATIENT CARE PER NURSING PROTOCOL Performed By: #### L 501.080 ####[facility] [address] [place], [address] FINGERSTICK GLU 144 mg/dL High 74-106 [facility] Comment on above: Result Comment: EDGAR GEMENT OF PATIENT CARE PER NURSING PROTOCOL Performed By: #### L 501.080 ####[facility] [address] [place], [address] FINGERSTICK GLU 265 mg/dL High 74-106 [facility] Comment on above: Result Comment: EDGAR GEMENT OF PATIENT CARE PER NURSING PROTOCOL Performed By: #### L 501.080 ####[facility] [address] [place], [address] Beta-Hydroxbytyrateon -- 2024 BETA-HYDROXYBUT 2.2 mmol/L High 0.0-0.3 [facility] Comment on above: Performed By: #### L 501.6901 ####[facility] [address] [place], [address] CBC W/Diff, Automatedon 06-2 Absolute Lymph 0.88 X10 3/uL Normal 0.83-4.51 [facility] Comment on above: Performed By: #### L 700.6800, L100.0100, L500.4050, L501.5200, L501.2450 ####[facility] [address] [place], [address] Absolute Neut 17.1 X10 3/uL High 2.0-7.7 [facility] Comment on above: Performed By: #### L 700.6800, L100.0100, L500.4050, L501.5200, L501.2450 ####[facility] [address] [place], [address] Basophils/100 WBC (Bld) 0.5 % Normal 0-1 [facility] Comment on above: Performed By: #### L 700.6800, L100.0100, L500.4050, L501.5200, L501.2450 ####[facility] [address] [place], [address] Eosinophils/100 WBC (Bld) 0.0 % Normal 0-5 [facility] Comment on above: Performed By: #### L 700.6800, L100.0100, L500.4050, L501.5200, L501.2450 ####[facility] [address] [place], [address] Erythrocyte distribution width (RBC) [Ratio] 13.3 % Normal 11.6-14.6 [facility] Comment on above: Performed By: #### L 700.6800, L100.0100, L500.4050, L501.5200, L501.2450 ####[facility] [address] [place], [address] Hematocrit (Bld) [Volume fraction] 41.2 % Normal 37-47 [facility] Comment on above: Performed By: #### L 700.6800, L100.0100, L500.4050, L501.5200, L501.2450 ####[facility] [address] [place], [address] Hemoglobin (Bld) [Mass/Vol] 13.7 g/dL Normal 12.0-15.0 [facility] Comment on above: Performed By: #### L 700.6800, L100.0100, L500.4050, L501.5200, L501.2450 ####[facility] [address] [place], [address] IG% 1.600 High 0.0-0.9 [facility] Comment on above: Result Comment: IG% - Immature Granulocytes (promyelocytes, myelocytes andmetamyelocytes) > 1% indicates that a LEFT SHIFT is Present. Performed By: #### L 700.6800, L100.0100, L500.4050, L501.5200, L501.2450 ####[facility] [address] [place], [address] Lymphocytes/100 WBC (Bld) 4.7 % Low 19-41 [facility] Comment on above: Performed By: #### L 700.6800, L100.0100, L500.4050, L501.5200, L501.2450 ####[facility] [address] [place], [address] MCH (RBC) [Entitic mass] 29.3 pg Normal 27.0-32.0 [facility] Comment on above: Performed By: #### L 700.6800, L100.0100, L500.4050, L501.5200, L501.2450 ####[facility] [address] [place], [address] MCHC (RBC) [Mass/Vol] 33.3 g/dL Normal 32-36 [facility] Comment on above: Performed By: #### L 700.6800, L100.0100, L500.4050, L501.5200, L501.2450 ####[facility] [address] [place], [address] MCV (RBC) [Entitic vol] 88.0 fL Normal 81-99 [facility] Comment on above: Performed By: #### L 700.6800, L100.0100, L500.4050, L501.5200, L501.2450 ####[facility] [address] [place], [address] Monocytes/100 WBC (Bld) 2.3 % Normal 0-10 [facility] Comment on above: Performed By: #### L 700.6800, L100.0100, L500.4050, L501.5200, L501.2450 ####[facility] [address] [place], [address] Neutrophils/100 WBC (Bld) 90.9 % High 47-70 [facility] Comment on above: Performed By: #### L 700.6800, L100.0100, L500.4050, L501.5200, L501.2450 ####[facility] [address] [place], [address] Nucleated RBC (Bld) [#/Vol] 0 10*3/uL Normal 0-5 [facility] Comment on above: Performed By: #### L 700.6800, L100.0100, L500.4050, L501.5200, L501.2450 ####[facility] [address] [place], [address] Platelet mean volume (Bld) [Entitic vol] 11.8 fL Normal 6.2-12.0 [facility] Comment on above: Performed By: #### L 700.6800, L100.0100, L500.4050, L501.5200, L501.2450 ####[facility] [address] [place], [address] Platelets (Bld) [#/Vol] 226 10*3/uL Normal 150-450 [facility] Comment on above: Performed By: #### L 700.6800, L100.0100, L500.4050, L501.5200, L501.2450 ####[facility] [address] [place], [address] RBC (Bld) [#/Vol] 4.68 10*6/uL Normal 4.2-5.4 [facility] Comment on above: Performed By: #### L 700.6800, L100.0100, L500.4050, L501.5200, L501.2450 ####[facility] [address] [place], [address] RDW SD 42.8 fl Normal 35.1-43.9 [facility] Comment on above: Performed By: #### L 700.6800, L100.0100, L500.4050, L501.5200, L501.2450 ####[facility] [address] [place], [address] WBC (Bld) [#/Vol] 18.8 10*3/uL High 4.4-11.0 [facility] Comment on above: Performed By: #### L 700.6800, L100.0100, L500.4050, L501.5200, L501.2450 ####[facility] [address] [place], [address] Comprehensive Metabolic Prof [facility] 02-18-2025 Albumin [Mass/Vol] 4.3 g/dL Normal 3.5-5.0 [facility] Comment on above: Performed By: #### L 700.6800, L100.0100, L500.4050, L501.5200, L501.2450 ####[facility] [address] [place], [address] Albumin/Globulin [Mass ratio] 1.7 {ratio} Normal 0.9-2.4 [facility] Comment on above: Performed By: #### L 700.6800, L100.0100, L500.4050, L501.5200, L501.2450 ####[facility] [address] [place], [address] ALK PHOS 85 U/L Normal 35-104 [facility] Comment on above: Performed By: #### L 700.6800, L100.0100, L500.4050, L501.5200, L501.2450 ####[facility] [address] [place], [address] ALT [Catalytic activity/Vol] 11 U/L Normal <=34 [facility] Comment on above: Performed By: #### L 700.6800, L100.0100, L500.4050, L501.5200, L501.2450 ####[facility] [address] [place], [address] AST [Catalytic activity/Vol] 17 U/L Normal <=31 [facility] Comment on above: Performed By: #### L 700.6800, L100.0100, L500.4050, L501.5200, L501.2450 ####[facility] [address] [place], [address] Bilirubin [Mass/Vol] 0.79 mg/dL Normal 0.00-1.30 [facility] Comment on above: Performed By: #### L 700.6800, L100.0100, L500.4050, L501.5200, L501.2450 ####[facility] [address] [place], [address] BUN/CRE 15.1 RATIO Normal 10-20 [facility] Comment on above: Performed By: #### L 700.6800, L100.0100, L500.4050, L501.5200, L501.2450 ####[facility] [address] [place], [address] Calcium [Mass/Vol] 9.6 mg/dL Normal 7.6-11.0 [facility] Comment on above: Performed By: #### L 700.6800, L100.0100, L500.4050, L501.5200, L501.2450 ####[facility] [address] [place], [address] Chloride [Moles/Vol] 101 mmol/L Normal 98-108 [facility] Comment on above: Performed By: #### L 700.6800, L100.0100, L500.4050, L501.5200, L501.2450 ####[facility] [address] [place], [address] CO2 [Moles/Vol] 15.4 mmol/L Low 21.0-32.0 [facility] Comment on above: Performed By: #### L 700.6800, L100.0100, L500.4050, L501.5200, L501.2450 ####[facility] [address] [place], [address] Creatinine [Mass/Vol] 0.73 mg/dL Normal 0.70-1.20 [facility] Comment on above: Performed By: #### L 700.6800, L100.0100, L500.4050, L501.5200, L501.2450 ####[facility] [address] [place], [address] GAP 20 High 5-15 [facility] Comment on above: Performed By: #### L 700.6800, L100.0100, L500.4050, L501.5200, L501.2450 ####[facility] [address] [place], [address] GFR/1.73 sq M.predicted among non-blacks MDRD (S/P/Bld) [Vol rate/Area] 114 mL/min/{1.73_m2} Normal >60 [facility] Comment on above: Result Comment: mL/m in/1.73m2 CKD-EPI Creatinine Equation (2020) Performed By: #### L 700.6800, L100.0100, L500.4050, L501.5200, L501.2450 ####[facility] [address] [place], [address] Globulin (S) [Mass/Vol] 2.6 g/dL Normal 2.2-4.2 [facility] Comment on above: Performed By: #### L 700.6800, L100.0100, L500.4050, L501.5200, L501.2450 ####[facility] [address] [place], [address] Glucose [Mass/Vol] 324 mg/dL High 70-99 [facility] Comment on above: Performed By: #### L 700.6800, L100.0100, L500.4050, L501.5200, L501.2450 ####[facility] [address] [place], [address] Potassium [Moles/Vol] 4.2 mmol/L Normal 3.3-5.1 [facility] Comment on above: Performed By: #### L 700.6800, L100.0100, L500.4050, L501.5200, L501.2450 ####[facility] [address] [place], [address] Sodium [Moles/Vol] 136 mmol/L Normal 133-145 [facility] Comment on above: Performed By: #### L 700.6800, L100.0100, L500.4050, L501.5200, L501.2450 ####[facility] [address] [place], [address] T PROT 6.9 g/dL Normal 5.9-8.4 [facility] Comment on above: Performed By: #### L 700.6800, L100.0100, L500.4050, L501.5200, L501.2450 ####[facility] [address] [place], [address] Urea nitrogen [Mass/Vol] 11 mg/dL Normal 4-19 [facility] Comment on above: Performed By: #### L 700.6800, L100.0100, L500.4050, L501.5200, L501.2450 ####[facility] [address] [place], [address] Emergency Department Summary on 02-18-2025 Emergency Department Summary Normal [facility] H AND P Exam - Hospital[facility] 02-18-2025 H&P Exam - Hospitalist Normal [facility] Lipaseon 02-18-2025 Lipase [Catalytic activity/Vol] 9 U/L Low 13-75 [facility] Comment on above: Result Comment: Sulma schmitz note:LIPASE revised reference range effective 22.New Lipase methodology. Expected to produce lower valuesthan the previous assay method.NEW Reference Range: 13 - 75 U/L Performed By: #### L 700.6800, L100.0100, L500.4050, L501.5200, L501.2450 ####[facility] [address] [place], [address] Magnesiumon 02-18-2025 Magnesium [Mass/Vol] 1.5 mg/dL Normal 1.5-2.2 [facility] Comment on above: Performed By: #### L 700.6800, L100.0100, L500.4050, L501.5200, L501.2450 ####[facility] [address] [place], [address] ,Serum,hCG Quali.on 02-18-2025 HCG, SERUM QUAL Negative Normal [facility] Comment on above: Performed By: #### L 700.6800, L100.0100, L500.4050, L501.5200, L501.2450 ####[facility] [address] [place], [address] Urinalysis, Completeon 02-18 RBC 0-5 SEEN Normal 0-5 [facility] Comment on above: Order Comment: CLEAN CATCH Performed By: #### L 400.0001 ####[facility] [address] [place], [address] WBC 0-5 SEEN Normal 0-5 [facility] Comment on above: Order Comment: CLEAN CATCH Performed By: #### L 400.0001 ####[facility] [address] [place], [address] EPI,SQUAMOUS 5-10 SEEN Normal 5-10 [facility] Comment on above: Order Comment: CLEAN CATCH Performed By: #### L 400.0001 ####[facility] [address] [place], [address] BACTERIA 0 SEEN Normal None Seen [facility] Comment on above: Order Comment: CLEAN CATCH Performed By: #### L 400.0001 ####[facility] [address] [place], [address] Mucus Ql (Urine sed) 0 SEEN Normal [facility] Comment on above: Order Comment: CLEAN CATCH Performed By: #### L 400.0001 ####[facility] [address] [place], [address] Venous Blood Gason 5 Blood Gas Type ISABELLE Normal [facility] Comment on above: Performed By: #### L 9000.0810 ####[facility] [address] [place], [address] CO2 [Moles/Vol] 22 mmol/L Low 23-33 [facility] Comment on above: Performed By: #### L 9000.0810 ####[facility] [address] [place], [address] HCO3 (Bld) [Moles/Vol] 22 mmol/L Normal 22-26 [facility] Comment on above: Performed By: #### L 9000.0810 ####[facility] [address] [place], [address] O2 Delivery Dev Not entered Normal [facility] Comment on above: Performed By: #### L 9000.0810 ####[facility] [address] [place], [address] SITE Not entered Normal [facility] Comment on above: Performed By: #### L 9000.0810 ####[facility] [address] [place], [address] VBG BE -1 mmol/L Normal -1.0-3.5 [facility] Comment on above: Performed By: #### L 9000.0810 ####[facility] [address] [place], [address] VBG pCO2 26.5 mmHg Low 41-51 [facility] Comment on above: Performed By: #### L 9000.0810 ####[facility] [address] [place], [address] VBG pH 7.52 High 7.32-7.42 [facility] Comment on above: Performed By: #### L 9000.0810 ####[facility] [address] [place], [address] VBG PO2 29 mmHg Normal 25-40 [facility] Comment on above: Performed By: #### L 9000.0810 ####[facility] [address] [place], [address] VBG SO2 64 Normal 50-70 [facility] Comment on above: Performed By: #### L 9000.0810 ####[facility] [address] [place], [address] Hepatitis A AB, Totalon 06- HEPATITIS A,TOT Positive Abnormal Negative [facility] Comment on above: Order Comment: KATHY [...] HAVtotal antibody results to IgM (e.g., panel #[id number] HAVAntibody w/ Rfx).Performed at: [address] [id number] Director: Esteban Jin PhD, Phone: [phone] Performed By: #### L 300.3900, L100.0100, L3100.0460, L501.9520, L500.2500, L3890.6301, L500.3400, L3410.9992, L3100.0300, L3890.6102, L501.9985, L3890.6202 ####[facility] [address] [place], [address] Hepatitis B Core Ab Totalon 02-05-2025 HEP B CORE,TOT Negative Normal Negative [facility] Comment on above: Order Comment: KATHY CALDERON ORDERED BMP,LIVER,CBCD,PT/INR,TSH,HEBSAG,HECAB,HEAT,HEP B CORE, AND ELF.ANTONIA ORDERED CMP AND A1C Performed By: #### L 300.3900, L100.0100, L3100.0460, L501.9520, L500.2500, L3890.6301, L500.3400, L3410.9992, L3100.0300, L3890.6102, L501.9985, L3890.6202 ####[facility] [address] [place], [place], [address] L3410.9992on 02-05-2025 [facility] Misc. COMMENT Normal . [facility] Comment on above: Order Comment: KATHY CALDERON ORDERED BMP,LIVER,CBCD,PT/INR,TSH,HEBSAG,HECAB,HEAT,HEP B CORE, AND ELF.ANTONIA ORDERED CMP AND [id number] Result Comment: Test Ordered: [id number] Enhanced Liver Fibrosis (ELF)ELF(TM) Score 8.11 BN [...] trials. J Hepatol. 2020 Feb;73(1):26-39.Performed at: - [facility] [id number] Director: Brian Rouse MD, Phone: [phone] at: [facility] [id number] Director: Esteban Jin PhD, Phone: [phone] Performed By: #### L 300.3900, L100.0100, L3100.0460, L501.9520, L500.2500, L3890.6301, L500.3400, L3410.9992, L3100.0300, L3890.6102, L501.9985, L3890.6202 ####[facility] [id number] [place], [place], [id number] Basic Metabolic Profile (BMP )on 02-03-2025 BUN/CRE 12.4 RATIO Normal 10-20 [facility] Comment on above: Order Comment: KATHY CALDERON ORDERED BMP,LIVER,CBCD,PT/INR,TSH,HEBSAG,HECAB,HEAT,HEP B CORE, AND ELF.ANTONIA ORDERED CMP AND A1C Performed By: #### L 300.3900, L100.0100, L3100.0460, L501.9520, L500.2500, L3890.6301, L500.3400, L3410.9992, L3100.0300, L3890.6102, L501.9985, L3890.6202 ####[facility] [address] [place], [address] Calcium [Mass/Vol] 9.7 mg/dL Normal 7.6-11.0 [facility] Comment on above: Order Comment: KATHY CALDERON ORDERED BMP,LIVER,CBCD,PT/INR,TSH,HEBSAG,HECAB,HEAT,HEP B CORE, AND ELF.ANTONIA ORDERED CMP AND A1C Performed By: #### L 300.3900, L100.0100, L3100.0460, L501.9520, L500.2500, L3890.6301, L500.3400, L3410.9992, L3100.0300, L3890.6102, L501.9985, L3890.6202 ####[facility] [address] [place], [place], [phone] Chloride [Moles/Vol] 96 mmol/L Low 98-108 [facility] Comment on above: Order Comment: KATHY CALDERON ORDERED BMP,LIVER,CBCD,PT/INR,TSH,HEBSAG,HECAB,HEAT,HEP B CORE, AND ELF.ANTONIA ORDERED CMP AND A1C Performed By: #### L 300.3900, L100.0100, L3100.0460, L501.9520, L500.2500, L3890.6301, L500.3400, L3410.9992, L3100.0300, L3890.6102, L501.9985, L3890.6202 ####[facility] [address] [place], [address] CO2 [Moles/Vol] 22.5 mmol/L Normal 21.0-32.0 [facility] Comment on above: Order Comment: KATHY CALDERON ORDERED BMP,LIVER,CBCD,PT/INR,TSH,HEBSAG,HECAB,HEAT,HEP B CORE, AND ELF.ANTONIA ORDERED CMP AND A1C Performed By: #### L 300.3900, L100.0100, L3100.0460, L501.9520, L500.2500, L3890.6301, L500.3400, L3410.9992, L3100.0300, L3890.6102, L501.9985, L3890.6202 ####[facility] [address] [place], [place], [phone] Creatinine [Mass/Vol] 0.78 mg/dL Normal 0.70-1.20 [facility] Comment on above: Order Comment: KATHY CALDERON ORDERED BMP,LIVER,CBCD,PT/INR,TSH,HEBSAG,HECAB,HEAT,HEP B CORE, AND ELF.ANTONIA ORDERED CMP AND A1C Performed By: #### L 300.3900, L100.0100, L3100.0460, L501.9520, L500.2500, L3890.6301, L500.3400, L3410.9992, L3100.0300, L3890.6102, L501.9985, L3890.6202 ####[facility] [address] [facility] [place], [place], [phone] GAP 15 Normal 5-15 [facility] Comment on above: Order Comment: KATHY CALDERON ORDERED BMP,LIVER,CBCD,PT/INR,TSH,HEBSAG,HECAB,HEAT,HEP B CORE, AND ELF.WHEAT INSPECTORDAYANA ORDERED CMP AND A1C Performed By: #### L 300.3900, L100.0100, L3100.0460, L501.9520, L500.2500, L3890.6301, L500.3400, L3410.9992, L3100.0300, L3890.6102, L501.9985, L3890.6202 ####[facility] [address] [facility] [place], [place], [phone] GFR/1.73 sq M.predicted among non-blacks MDRD (S/P/Bld) [Vol rate/Area] 106 mL/min/{1.73_m2} Normal >60 [facility] Comment on above: Order Comment: KATHY CALDERON ORDERED BMP,LIVER,CBCD,PT/INR,TSH,HEBSAG,HECAB,HEAT,HEP B CORE, AND ELF.ANTONIA ORDERED CMP AND A1C Result Comment: mL/m in/1.73m2 CKD-EPI Creatinine Equation (2020) Performed By: #### L 300.3900, L100.0100, L3100.0460, L501.9520, L500.2500, L3890.6301, L500.3400, L3410.9992, L3100.0300, L3890.6102, L501.9985, L3890.6202 ####[facility] [address] [place], [place], [phone] Glucose [Mass/Vol] 459 mg/dL Invalid Interpretation Code 70-99 [facility] Comment on above: Order Comment: KATHY CALDERON ORDERED BMP,LIVER,CBCD,PT/INR,TSH,HEBSAG,HECAB,HEAT,HEP B CORE, AND ELF.ANTONIA ORDERED CMP AND A1C Result Comment: Crit ical Result(s) Called at: by:??Results read back bysame.LEFT VOICEMAIL @ 1813 Performed By: #### L 300.3900, L100.0100, L3100.0460, L501.9520, L500.2500, L3890.6301, L500.3400, L3410.9992, L3100.0300, L3890.6102, L501.9985, L3890.6202 ####[facility] [address] [place], [place], [phone] Potassium [Moles/Vol] 4.7 mmol/L Normal 3.3-5.1 [facility] Comment on above: Order Comment: KATHY CALDERON ORDERED BMP,LIVER,CBCD,PT/INR,TSH,HEBSAG,HECAB,HEAT,HEP B CORE, AND ELF.ANTONIA ORDERED CMP AND A1C Performed By: #### L 300.3900, L100.0100, L3100.0460, L501.9520, L500.2500, L3890.6301, L500.3400, L3410.9992, L3100.0300, L3890.6102, L501.9985, L3890.6202 ####[facility] [address] [place], [place], [phone] Sodium [Moles/Vol] 133 mmol/L Normal 133-145 [facility] Comment on above: Order Comment: KATHY CALDERON ORDERED BMP,LIVER,CBCD,PT/INR,TSH,HEBSAG,HECAB,HEAT,HEP B CORE, AND ELF.ANTOINA ORDERED CMP AND A1C Performed By: #### L 300.3900, L100.0100, L3100.0460, L501.9520, L500.2500, L3890.6301, L500.3400, L3410.9992, L3100.0300, L3890.6102, L501.9985, L3890.6202 ####[facility] [address] [place], [address] Urea nitrogen [Mass/Vol] 10 mg/dL Normal 4-19 [facility] Comment on above: Order Comment: KATHY CALDERON ORDERED BMP,LIVER,CBCD,PT/INR,TSH,HEBSAG,HECAB,HEAT,HEP B CORE, AND ELF.ANTONIA ORDERED CMP AND A1C Performed By: #### L 300.3900, L100.0100, L3100.0460, L501.9520, L500.2500, L3890.6301, L500.3400, L3410.9992, L3100.0300, L3890.6102, L501.9985, L3890.6202 ####[facility] [address] [place], [address] CBC W/Diff, Automatedon 06-0 -2024 Absolute Lymph 1.69 X10 3/uL Normal 0.83-4.51 [facility] Comment on above: Order Comment: KATHY CALDERON ORDERED BMP,LIVER,CBCD,PT/INR,TSH,HEBSAG,HECAB,HEAT,HEP B CORE, AND ELF.ANTONIA ORDERED CMP AND A1C Performed By: #### L 300.3900, L100.0100, L3100.0460, L501.9520, L500.2500, L3890.6301, L500.3400, L3410.9992, L3100.0300, L3890.6102, L501.9985, L3890.6202 ####[facility] [address] [place], [place], [phone] Absolute Neut 7.9 X10 3/uL High 2.0-7.7 [facility] Comment on above: Order Comment: KATHY CALDERON ORDERED BMP,LIVER,CBCD,PT/INR,TSH,HEBSAG,HECAB,HEAT,HEP B CORE, AND ELF.ANTONIA ORDERED CMP AND A1C Performed By: #### L 300.3900, L100.0100, L3100.0460, L501.9520, L500.2500, L3890.6301, L500.3400, L3410.9992, L3100.0300, L3890.6102, L501.9985, L3890.6202 ####[facility] [address] [place], [place], [phone] Basophils/100 WBC (Bld) 0.5 % Normal 0-1 [facility] Comment on above: Order Comment: KATHY CALDERON ORDERED BMP,LIVER,CBCD,PT/INR,TSH,HEBSAG,HECAB,HEAT,HEP B CORE, AND ELF.ANTONIA ORDERED CMP AND A1C Performed By: #### L 300.3900, L100.0100, L3100.0460, L501.9520, L500.2500, L3890.6301, L500.3400, L3410.9992, L3100.0300, L3890.6102, L501.9985, L3890.6202 ####[facility] [address] [place], [place], [phone] Eosinophils/100 WBC (Bld) 0.5 % Normal 0-5 [facility] Comment on above: Order Comment: KATHY CALDERON ORDERED BMP,LIVER,CBCD,PT/INR,TSH,HEBSAG,HECAB,HEAT,HEP B CORE, AND ELF.ANTONIA ORDERED CMP AND A1C Performed By: #### L 300.3900, L100.0100, L3100.0460, L501.9520, L500.2500, L3890.6301, L500.3400, L3410.9992, L3100.0300, L3890.6102, L501.9985, L3890.6202 ####[facility] [address] [place], [address] Erythrocyte distribution width (RBC) [Ratio] 13.4 % Normal 11.6-14.6 [facility] Comment on above: Order Comment: KATHY CALDERON ORDERED BMP,LIVER,CBCD,PT/INR,TSH,HEBSAG,HECAB,HEAT,HEP B CORE, AND ELF.ANTONIA ORDERED CMP AND A1C Performed By: #### L 300.3900, L100.0100, L3100.0460, L501.9520, L500.2500, L3890.6301, L500.3400, L3410.9992, L3100.0300, L3890.6102, L501.9985, L3890.6202 ####[facility] [address] [place], [place], [phone] Hematocrit (Bld) [Volume fraction] 40.5 % Normal 37-47 [facility] Comment on above: Order Comment: KATHY CALDERON ORDERED BMP,LIVER,CBCD,PT/INR,TSH,HEBSAG,HECAB,HEAT,HEP B CORE, AND ELF.ANTONIA ORDERED CMP AND A1C Performed By: #### L 300.3900, L100.0100, L3100.0460, L501.9520, L500.2500, L3890.6301, L500.3400, L3410.9992, L3100.0300, L3890.6102, L501.9985, L3890.6202 ####[facility] [address] [place], [place], [phone] Hemoglobin (Bld) [Mass/Vol] 13.5 g/dL Normal 12.0-15.0 [facility] Comment on above: Order Comment: KATHY CALDERON ORDERED BMP,LIVER,CBCD,PT/INR,TSH,HEBSAG,HECAB,HEAT,HEP B CORE, AND ELF.ANTONIA ORDERED CMP AND A1C Performed By: #### L 300.3900, L100.0100, L3100.0460, L501.9520, L500.2500, L3890.6301, L500.3400, L3410.9992, L3100.0300, L3890.6102, L501.9985, L3890.6202 ####[facility] [address] [place], [place], [phone] IG% 1.500 High 0.0-0.9 [facility] Comment on above: Order Comment: KATHY CALDERON ORDERED BMP,LIVER,CBCD,PT/INR,TSH,HEBSAG,HECAB,HEAT,HEP B CORE, AND ELF.ANTONIA ORDERED CMP AND A1C Result Comment: IG% - Immature Granulocytes (promyelocytes, myelocytes andmetamyelocytes) > 1% indicates that a LEFT SHIFT is Present. Performed By: #### L 300.3900, L100.0100, L3100.0460, L501.9520, L500.2500, L3890.6301, L500.3400, L3410.9992, L3100.0300, L3890.6102, L501.9985, L3890.6202 ####[facility] [address] [facility] [place], [address] Lymphocytes/100 WBC (Bld) 16.3 % Low 19-41 [facility] Comment on above: Order Comment: KATHY CALDERON ORDERED BMP,LIVER,CBCD,PT/INR,TSH,HEBSAG,HECAB,HEAT,HEP B CORE, AND ELF.ANTONIA ORDERED CMP AND A1C Performed By: #### L 300.3900, L100.0100, L3100.0460, L501.9520, L500.2500, L3890.6301, L500.3400, L3410.9992, L3100.0300, L3890.6102, L501.9985, L3890.6202 ####[facility] [address] [facility] [place], [address] MCH (RBC) [Entitic mass] 29.7 pg Normal 27.0-32.0 [facility] Comment on above: Order Comment: KATHY CALDERON ORDERED BMP,LIVER,CBCD,PT/INR,TSH,HEBSAG,HECAB,HEAT,HEP B CORE, AND ELF.ANTONIA ORDERED CMP AND A1C Performed By: #### L 300.3900, L100.0100, L3100.0460, L501.9520, L500.2500, L3890.6301, L500.3400, L3410.9992, L3100.0300, L3890.6102, L501.9985, L3890.6202 ####[facility] [address] [facility] [place], [address] MCHC (RBC) [Mass/Vol] 33.3 g/dL Normal 32-36 [facility] Comment on above: Order Comment: KATHY CALDERON ORDERED BMP,LIVER,CBCD,PT/INR,TSH,HEBSAG,HECAB,HEAT,HEP B CORE, AND ELF.ANTONIA ORDERED CMP AND A1C Performed By: #### L 300.3900, L100.0100, L3100.0460, L501.9520, L500.2500, L3890.6301, L500.3400, L3410.9992, L3100.0300, L3890.6102, L501.9985, L3890.6202 ####[facility] [address] [place], [address] MCV (RBC) [Entitic vol] 89.0 fL Normal 81-99 [facility] Comment on above: Order Comment: KAHTY CALDERON ORDERED BMP,LIVER,CBCD,PT/INR,TSH,HEBSAG,HECAB,HEAT,HEP B CORE, AND ELF.ANTONIA ORDERED CMP AND A1C Performed By: #### L 300.3900, L100.0100, L3100.0460, L501.9520, L500.2500, L3890.6301, L500.3400, L3410.9992, L3100.0300, L3890.6102, L501.9985, L3890.6202 ####[facility] [address] [place], [address] Monocytes/100 WBC (Bld) 4.8 % Normal 0-10 [facility] Comment on above: Order Comment: KATHY CALDERON ORDERED BMP,LIVER,CBCD,PT/INR,TSH,HEBSAG,HECAB,HEAT,HEP B CORE, AND ELF.ANTONIA ORDERED CMP AND A1C Performed By: #### L 300.3900, L100.0100, L3100.0460, L501.9520, L500.2500, L3890.6301, L500.3400, L3410.9992, L3100.0300, L3890.6102, L501.9985, L3890.6202 ####[facility] [address] [place], [address] Neutrophils/100 WBC (Bld) 76.4 % High 47-70 [facility] Comment on above: Order Comment: KATHY CALDERON ORDERED BMP,LIVER,CBCD,PT/INR,TSH,HEBSAG,HECAB,HEAT,HEP B CORE, AND ELF.ANTONIA ORDERED CMP AND A1C Performed By: #### L 300.3900, L100.0100, L3100.0460, L501.9520, L500.2500, L3890.6301, L500.3400, L3410.9992, L3100.0300, L3890.6102, L501.9985, L3890.6202 ####[facility] [address] [place], [address] Nucleated RBC (Bld) [#/Vol] 0 10*3/uL Normal 0-5 [facility] Comment on above: Order Comment: KATHY CALDERON ORDERED BMP,LIVER,CBCD,PT/INR,TSH,HEBSAG,HECAB,HEAT,HEP B CORE, AND ELF.ANTONIA ORDERED CMP AND A1C Performed By: #### L 300.3900, L100.0100, L3100.0460, L501.9520, L500.2500, L3890.6301, L500.3400, L3410.9992, L3100.0300, L3890.6102, L501.9985, L3890.6202 ####[facility] [address] [place], [address] Platelet mean volume (Bld) [Entitic vol] 11.5 fL Normal 6.2-12.0 [facility] Comment on above: Order Comment: KATHY CALDERON ORDERED BMP,LIVER,CBCD,PT/INR,TSH,HEBSAG,HECAB,HEAT,HEP B CORE, AND ELF.ANTONIA ORDERED CMP AND A1C Performed By: #### L 300.3900, L100.0100, L3100.0460, L501.9520, L500.2500, L3890.6301, L500.3400, L3410.9992, L3100.0300, L3890.6102, L501.9985, L3890.6202 ####[facility] [address] [place], [place], [phone] Platelets (Bld) [#/Vol] 215 10*3/uL Normal 150-450 [facility] Comment on above: Order Comment: KATHY CALDERON ORDERED BMP,LIVER,CBCD,PT/INR,TSH,HEBSAG,HECAB,HEAT,HEP B CORE, AND ELF.ANTONIA ORDERED CMP AND A1C Performed By: #### L 300.3900, L100.0100, L3100.0460, L501.9520, L500.2500, L3890.6301, L500.3400, L3410.9992, L3100.0300, L3890.6102, L501.9985, L3890.6202 ####[facility] [address] [place], [place], [phone] RBC (Bld) [#/Vol] 4.55 10*6/uL Normal 4.2-5.4 [facility] Comment on above: Order Comment: KATHY CALDERON ORDERED BMP,LIVER,CBCD,PT/INR,TSH,HEBSAG,HECAB,HEAT,HEP B CORE, AND ELF.ANTONIA ORDERED CMP AND A1C Performed By: #### L 300.3900, L100.0100, L3100.0460, L501.9520, L500.2500, L3890.6301, L500.3400, L3410.9992, L3100.0300, L3890.6102, L501.9985, L3890.6202 ####[facility] [address] [place], [place], [phone] RDW SD 43.5 fl Normal 35.1-43.9 [facility] Comment on above: Order Comment: KATHY CALDERON ORDERED BMP,LIVER,CBCD,PT/INR,TSH,HEBSAG,HECAB,HEAT,HEP B CORE, AND ELF.ANTONIA ORDERED CMP AND A1C Performed By: #### L 300.3900, L100.0100, L3100.0460, L501.9520, L500.2500, L3890.6301, L500.3400, L3410.9992, L3100.0300, L3890.6102, L501.9985, L3890.6202 ####[facility] [address] [place], [address] WBC (Bld) [#/Vol] 10.4 10*3/uL Normal 4.4-11.0 [facility] Comment on above: Order Comment: KATHY CALDERON ORDERED BMP,LIVER,CBCD,PT/INR,TSH,HEBSAG,HECAB,HEAT,HEP B CORE, AND ELF.ANTONIA ORDERED CMP AND A1C Performed By: #### L 300.3900, L100.0100, L3100.0460, L501.9520, L500.2500, L3890.6301, L500.3400, L3410.9992, L3100.0300, L3890.6102, L501.9985, L3890.6202 ####[facility] [address] [place], [address] Hemoglobin A1con 02-03-2025 HbA1c (Bld) [Mass fraction] 10.9 % High <=5.6 [facility] Comment on above: Order Comment: KATHY CALDERON ORDERED BMP,LIVER,CBCD,PT/INR,TSH,HEBSAG,HECAB,HEAT,HEP B CORE, AND ELF.WHEAT INSPECTOR.AMOS ORDERED CMP AND A1C Result Comment: Norm al < 5.7 % Prediabetic 5.7 - 6.4 % Diabetic >or= 6.5 % Please note range changes. Performed By: #### L 300.3900, L100.0100, L3100.0460, L501.9520, L500.2500, L3890.6301, L500.3400, L3410.9992, L3100.0300, L3890.6102, L501.9985, L3890.6202 ####[facility] [address] [place], [address] Hepatitis B Surface Antibody on 02-03-2025 HEP B Surf Ab Non-Reactive Normal [facility] Comment on above: Order Comment: KATHY CALDERON ORDERED BMP,LIVER,CBCD,PT/INR,TSH,HEBSAG,HECAB,HEAT,HEP B CORE, AND ELF.ANTNOIA ORDERED CMP AND A1C Result Comment: <8.5 mIU/mL: Non-Reactive8.5<= x <11.5 mIU/mL: Indeterminate>=11.5 mIU/mL: Reactive Non Reactive: Inconsistent with immunity less than <10 mIU/mL Reactive: Consistent with immunity greater than or equal to 10 mIU/mL Performed By: #### L 300.3900, L100.0100, L3100.0460, L501.9520, L500.2500, L3890.6301, L500.3400, L3410.9992, L3100.0300, L3890.6102, L501.9985, L3890.6202 ####[facility] [address] [place], [address] Hepatitis C Antibodyon 02-03 Hepatitis C Ab Non-Reactive Normal Nonreactive [facility] Comment on above: Order Comment: KATHY [...] testing: HCV Quant by PCR testing -[facility] #[id number] Non Reactive: < 0.8 Equivocal: >/= 0.8 to < 1.0 Reactive: >/= 1.0The [facility] requires that a reactive/equivocal HCV antibodyresult be sent out for confirmation. HCV Quant by PCRtesting. Performed By: #### L 300.3900, L100.0100, L3100.0460, L501.9520, L500.2500, L3890.6301, L500.3400, L3410.9992, L3100.0300, L3890.6102, L501.9985, L3890.6202 ####[facility] [address], [address] L3890.6102on 02-03-2025 HEP B Surf Ag Non-Reactive Normal Nonreactive [facility] Comment on above: Order Comment: KATHY [...] L3890.6301, L500.3400, L3410.9992, L3100.0300, L3890.6102, L501.9985, L3890.6202 ####[facility] [address] [facility] [place], [address] Liver Profileon 02-03-2025 Albumin [Mass/Vol] 4.2 g/dL Normal 3.5-5.0 [facility] Comment on above: Order Comment: KATHY CALDERON ORDERED BMP,LIVER,CBCD,PT/INR,TSH,HEBSAG,HECAB,HEAT,HEP B CORE, AND ELF.[facility] ORDERED CMP AND A1C Performed By: #### L 300.3900, L100.0100, L3100.0460, L501.9520, L500.2500, L3890.6301, L500.3400, L3410.9992, L3100.0300, L3890.6102, L501.9985, L3890.6202 ####[facility] [address] [place], [address] ALK PHOS 95 U/L Normal 35-104 [facility] Comment on above: Order Comment: KATHY CALDERON ORDERED BMP,LIVER,CBCD,PT/INR,TSH,HEBSAG,HECAB,HEAT,HEP B CORE, AND ELF.WHEAT INSPECTOR.[facility] ORDERED CMP AND A1C Performed By: #### L 300.3900, L100.0100, L3100.0460, L501.9520, L500.2500, L3890.6301, L500.3400, L3410.9992, L3100.0300, L3890.6102, L501.9985, L3890.6202 ####[facility] [address] [place], [address] ALT [Catalytic activity/Vol] 29 U/L Normal <=34 [facility] Comment on above: Order Comment: KATHY CALDERON ORDERED BMP,LIVER,CBCD,PT/INR,TSH,HEBSAG,HECAB,HEAT,HEP B CORE, AND ELF.WHEAT INSPECTOR.[facility] ORDERED CMP AND A1C Performed By: #### L 300.3900, L100.0100, L3100.0460, L501.9520, L500.2500, L3890.6301, L500.3400, L3410.9992, L3100.0300, L3890.6102, L501.9985, L3890.6202 ####[facility] [address] [place], [place], [phone] AST [Catalytic activity/Vol] 18 U/L Normal <=31 [facility] Comment on above: Order Comment: KATHY CALDERON ORDERED BMP,LIVER,CBCD,PT/INR,TSH,HEBSAG,HECAB,HEAT,HEP B CORE, AND ELF.ANTONIA ORDERED CMP AND A1C Performed By: #### L 300.3900, L100.0100, L3100.0460, L501.9520, L500.2500, L3890.6301, L500.3400, L3410.9992, L3100.0300, L3890.6102, L501.9985, L3890.6202 ####[facility] [address] [place], [place], [phone] Bilirubin [Mass/Vol] 0.30 mg/dL Normal 0.00-1.30 [facility] Comment on above: Order Comment: KATHY CALDERON ORDERED BMP,LIVER,CBCD,PT/INR,TSH,HEBSAG,HECAB,HEAT,HEP B CORE, AND ELF.ANTONIA ORDERED CMP AND A1C Performed By: #### L 300.3900, L100.0100, L3100.0460, L501.9520, L500.2500, L3890.6301, L500.3400, L3410.9992, L3100.0300, L3890.6102, L501.9985, L3890.6202 ####[facility] [address] [place], [place], [phone] Bilirubin.direct [Mass/Vol] 0.13 mg/dL Normal 0.00-0.30 [facility] Comment on above: Order Comment: KATHY CALDERON ORDERED BMP,LIVER,CBCD,PT/INR,TSH,HEBSAG,HECAB,HEAT,HEP B CORE, AND ELF.ANTONIA ORDERED CMP AND A1C Performed By: #### L 300.3900, L100.0100, L3100.0460, L501.9520, L500.2500, L3890.6301, L500.3400, L3410.9992, L3100.0300, L3890.6102, L501.9985, L3890.6202 ####[facility] [address] [place], [address] Globulin (S) [Mass/Vol] 2.7 g/dL Normal 2.2-4.2 [facility] Comment on above: Order Comment: KATHY CALDERON ORDERED BMP,LIVER,CBCD,PT/INR,TSH,HEBSAG,HECAB,HEAT,HEP B CORE, AND ELF.ANTONIA ORDERED CMP AND A1C Performed By: #### L 300.3900, L100.0100, L3100.0460, L501.9520, L500.2500, L3890.6301, L500.3400, L3410.9992, L3100.0300, L3890.6102, L501.9985, L3890.6202 ####[facility] [address] [place], [address] T PROT 6.8 g/dL Normal 5.9-8.4 [facility] Comment on above: Order Comment: KATHY CALDERON ORDERED BMP,LIVER,CBCD,PT/INR,TSH,HEBSAG,HECAB,HEAT,HEP B CORE, AND ELF.ANTONIA ORDERED CMP AND A1C Performed By: #### L 300.3900, L100.0100, L3100.0460, L501.9520, L500.2500, L3890.6301, L500.3400, L3410.9992, L3100.0300, L3890.6102, L501.9985, L3890.6202 ####[facility] [address] [place], [address] Prothrombin Time w/INRon INR Coag (PPP) [Relative time] 0.9 {INR} Normal [facility] Comment on above: Order Comment: KATHY CALDERON ORDERED BMP,LIVER,CBCD,PT/INR,TSH,HEBSAG,HECAB,HEAT,HEP B CORE, AND ELF.ANTONIA ORDERED CMP AND A1C Performed By: #### L 300.3900, L100.0100, L3100.0460, L501.9520, L500.2500, L3890.6301, L500.3400, L3410.9992, L3100.0300, L3890.6102, L501.9985, L3890.6202 ####[facility] [address] [place], [place], [address] PT Coag (PPP) [Time] 11.9 s Normal 11.7-14.9 [facility] Comment on above: Order Comment: KATHY CALDERON ORDERED BMP,LIVER,CBCD,PT/INR,TSH,HEBSAG,HECAB,HEAT,HEP B CORE, AND ELF.ANTONIA ORDERED CMP AND A1C Performed By: #### L 300.3900, L100.0100, L3100.0460, L501.9520, L500.2500, L3890.6301, L500.3400, L3410.9992, L3100.0300, L3890.6102, L501.9985, L3890.6202 ####[facility] [address] [facility] [place], [place], [id number] Thyroid Stim Hormone (TSH)on 02-03-2025 TSH 1.140 uIU/mL Normal 0.300-4.200 [facility] Comment on above: Order Comment: KATHY CALDERON ORDERED BMP,LIVER,CBCD,PT/INR,TSH,HEBSAG,HECAB,HEAT,HEP B CORE, AND ELF.ANTONIA ORDERED CMP AND A1C Performed By: #### L 300.3900, L100.0100, L3100.0460, L501.9520, L500.2500, L3890.6301, L500.3400, L3410.9992, L3100.0300, L3890.6102, L501.9985, L3890.6202 ####[facility] [address] [place], [address] Basic Metabolic Profile (BMP )on 02-01-2025 BUN Normal 4-19 [facility] Comment on above: Result Comment: Canc elled via OM: Order cancelled - Patient discharged Performed By: #### L 500.2500, L100.0100 ####[facility] [address] [place], [address] BUN/CRE Normal 10-20 [facility] Comment on above: Result Comment: Canc elled via OM: Order cancelled - Patient discharged Performed By: #### L 500.2500, L100.0100 ####[facility] [address] [place], [address] Calcium Normal 7.6-11.0 [facility] Comment on above: Result Comment: Canc elled via OM: Order cancelled - Patient discharged Performed By: #### L 500.2500, L100.0100 ####[facility] [address] [place], [address] CL Normal 98-108 [facility] Comment on above: Result Comment: Canc elled via OM: Order cancelled - Patient discharged Performed By: #### L 500.2500, L100.0100 ####[facility] [address] [place], [address] CO2 Normal 21.0-32.0 [facility] Comment on above: Result Comment: Canc elled via OM: Order cancelled - Patient discharged Performed By: #### L 500.2500, L100.0100 ####[facility] [address] [place], [address] CREAT,SERUM Normal 0.70-1.20 [facility] Comment on above: Result Comment: Canc elled via OM: Order cancelled - Patient discharged Performed By: #### L 500.2500, L100.0100 ####[facility] [address] [place], [address] eGFR Normal >60 [facility] Comment on above: Result Comment: Canc elled via OM: Order cancelled - Patient discharged Performed By: #### L 500.2500, L100.0100 ####[facility] [address] [place], [address] GAP Normal 5-15 [facility] Comment on above: Result Comment: Canc elled via OM: Order cancelled - Patient discharged Performed By: #### L 500.2500, L100.0100 ####[facility] [address] [place], [place], [address] GLU Normal 70-99 [facility] Comment on above: Result Comment: Canc elled via OM: Order cancelled - Patient discharged Performed By: #### L 500.2500, L100.0100 ####[facility] [address] [place], [address] Potassium Normal 3.3-5.1 [facility] Comment on above: Result Comment: Canc elled via OM: Order cancelled - Patient discharged Performed By: #### L 500.2500, L100.0100 ####[facility] [address] [place], [address] Basic Metabolic Profile (BMP) Normal 133-145 [facility] Comment on above: Result Comment: Canc elled via OM: Order cancelled - Patient discharged Performed By: #### L 500.2500, L100.0100 ####[facility] [address] [place], [address] CBC W/Diff, Automatedon 06-0 -2024 Absolute Neut Normal 2.0-7.7 [facility] Comment on above: Result Comment: Canc elled via OM: Order cancelled - Patient discharged Performed By: #### L 500.2500, L100.0100 ####[facility] [address] [place], [address] HCT Normal 37-47 [facility] Comment on above: Result Comment: Canc elled via OM: Order cancelled - Patient discharged Performed By: #### L 500.2500, L100.0100 ####[facility] [address] [place], [address] HGB Normal 12.0-15.0 [facility] Comment on above: Result Comment: Canc elled via OM: Order cancelled - Patient discharged Performed By: #### L 500.2500, L100.0100 ####[facility] [address] [place], [address] MCH Normal 27.0-32.0 [facility] Comment on above: Result Comment: Canc elled via OM: Order cancelled - Patient discharged Performed By: #### L 500.2500, L100.0100 ####[facility] [address] [place], [address] MCHC Normal 32-36 [facility] Comment on above: Result Comment: Canc elled via OM: Order cancelled - Patient discharged Performed By: #### L 500.2500, L100.0100 ####[facility] [address] [place], [address] MCV Normal 81-99 [facility] Comment on above: Result Comment: Canc elled via OM: Order cancelled - Patient discharged Performed By: #### L 500.2500, L100.0100 ####[facility] [address] [place], [address] NEUT% Normal 47-70 [facility] Comment on above: Result Comment: Canc elled via OM: Order cancelled - Patient discharged Performed By: #### L 500.2500, L100.0100 ####[facility] [address] [place], [address] PLT Normal 150-450 [facility] Comment on above: Result Comment: Canc elled via OM: Order cancelled - Patient discharged Performed By: #### L 500.2500, L100.0100 ####[facility] [address] [place], [address] RBC Normal 4.2-5.4 [facility] Comment on above: Result Comment: Canc elled via OM: Order cancelled - Patient discharged Performed By: #### L 500.2500, L100.0100 ####[facility] [address] [place], [address] RDW CV Normal 11.6-14.6 [facility] Comment on above: Result Comment: Canc elled via OM: Order cancelled - Patient discharged Performed By: #### L 500.2500, L100.0100 ####[facility] [address] [place], [address] RDW SD Normal 35.1-43.9 [facility] Comment on above: Result Comment: Canc elled via OM: Order cancelled - Patient discharged Performed By: #### L 500.2500, L100.0100 ####[facility] [address] [place], [address] WBC Normal 4.4-11.0 [facility] Comment on above: Result Comment: Canc elled via OM: Order cancelled - Patient discharged Performed By: #### L 500.2500, L100.0100 ####[facility] [address] [place], [address] Basic Metabolic Profile (BMP )on 01-31-2025 BUN Normal 4-19 [facility] Comment on above: Result Comment: Canc elled via OM: Order cancelled - Patient discharged Performed By: #### L 500.2500, L100.0100 ####[facility] [address] [place], [address] BUN/CRE Normal 10-20 [facility] Comment on above: Result Comment: Canc elled via OM: Order cancelled - Patient discharged Performed By: #### L 500.2500, L100.0100 ####[facility] [address] [place], [address] Calcium Normal 7.6-11.0 [facility] Comment on above: Result Comment: Canc elled via OM: Order cancelled - Patient discharged Performed By: #### L 500.2500, L100.0100 ####[facility] [address] [place], [address] CL Normal 98-108 [facility] Comment on above: Result Comment: Canc elled via OM: Order cancelled - Patient discharged Performed By: #### L 500.2500, L100.0100 ####[facility] [address] [place], [address] CO2 Normal 21.0-32.0 [facility] Comment on above: Result Comment: Canc elled via OM: Order cancelled - Patient discharged Performed By: #### L 500.2500, L100.0100 ####[facility] [address] [place], [address] CREAT,SERUM Normal 0.70-1.20 [facility] Comment on above: Result Comment: Canc elled via OM: Order cancelled - Patient discharged Performed By: #### L 500.2500, L100.0100 ####[facility] [address] [place], [address] eGFR Normal >60 [facility] Comment on above: Result Comment: Canc elled via OM: Order cancelled - Patient discharged Performed By: #### L 500.2500, L100.0100 ####[facility] [address] [place], [address] GAP Normal 5-15 [facility] Comment on above: Result Comment: Canc elled via OM: Order cancelled - Patient discharged Performed By: #### L 500.2500, L100.0100 ####[facility] [address] [place], [address] GLU Normal 70-99 [facility] Comment on above: Result Comment: Canc elled via OM: Order cancelled - Patient discharged Performed By: #### L 500.2500, L100.0100 ####[facility] [address] [place], [address] Potassium Normal 3.3-5.1 [facility] Comment on above: Result Comment: Canc elled via OM: Order cancelled - Patient discharged Performed By: #### L 500.2500, L100.0100 ####[facility] [address] [place], [address] Basic Metabolic Profile (BMP) Normal 133-145 [facility] Comment on above: Result Comment: Canc elled via OM: Order cancelled - Patient discharged Performed By: #### L 500.2500, L100.0100 ####[facility] [address] [place], [address] CBC W/Diff, Automatedon 06-0 6-2024 Absolute Neut Normal 2.0-7.7 [facility] Comment on above: Result Comment: Canc elled via OM: Order cancelled - Patient discharged Performed By: #### L 500.2500, L100.0100 ####[facility] [address] [place], [address] HCT Normal 37-47 [facility] Comment on above: Result Comment: Canc elled via OM: Order cancelled - Patient discharged Performed By: #### L 500.2500, L100.0100 ####[facility] [address] [place], [address] HGB Normal 12.0-15.0 [facility] Comment on above: Result Comment: Canc elled via OM: Order cancelled - Patient discharged Performed By: #### L 500.2500, L100.0100 ####[facility] [address] [place], [address] MCH Normal 27.0-32.0 [facility] Comment on above: Result Comment: Canc elled via OM: Order cancelled - Patient discharged Performed By: #### L 500.2500, L100.0100 ####[facility] [address] [place], [address] MCHC Normal 32-36 [facility] Comment on above: Result Comment: Canc elled via OM: Order cancelled - Patient discharged Performed By: #### L 500.2500, L100.0100 ####[facility] [address] [place], [address] MCV Normal 81-99 [facility] Comment on above: Result Comment: Canc elled via OM: Order cancelled - Patient discharged Performed By: #### L 500.2500, L100.0100 ####[facility] [address] [place], [address] NEUT% Normal 47-70 [facility] Comment on above: Result Comment: Canc elled via OM: Order cancelled - Patient discharged Performed By: #### L 500.2500, L100.0100 ####[facility] [address] [place], [address] PLT Normal 150-450 [facility] Comment on above: Result Comment: Canc elled via OM: Order cancelled - Patient discharged Performed By: #### L 500.2500, L100.0100 ####[facility] [address] [place], [address] RBC Normal 4.2-5.4 [facility] Comment on above: Result Comment: Canc elled via OM: Order cancelled - Patient discharged Performed By: #### L 500.2500, L100.0100 ####[facility] [address] [place], [address] RDW CV Normal 11.6-14.6 [facility] Comment on above: Result Comment: Canc elled via OM: Order cancelled - Patient discharged Performed By: #### L 500.2500, L100.0100 ####[facility] [address] [place], [address] RDW SD Normal 35.1-43.9 [facility] Comment on above: Result Comment: Canc elled via OM: Order cancelled - Patient discharged Performed By: #### L 500.2500, L100.0100 ####[facility] [address] [place], [address] WBC Normal 4.4-11.0 [facility] Comment on above: Result Comment: Canc elled via OM: Order cancelled - Patient discharged Performed By: #### L 500.2500, L100.0100 ####[facility] [address] [place], [address] Basic Metabolic Profile (BMP )on 01-30-2025 BUN Normal 4-19 [facility] Comment on above: Result Comment: Canc elled via OM: Order cancelled - Patient discharged Performed By: #### L 500.2500, L100.0100 ####[facility] [address] [place], [address] BUN/CRE Normal 10-20 [facility] Comment on above: Result Comment: Canc elled via OM: Order cancelled - Patient discharged Performed By: #### L 500.2500, L100.0100 ####[facility] [address] [place], [address] Calcium Normal 7.6-11.0 [facility] Comment on above: Result Comment: Canc elled via OM: Order cancelled - Patient discharged Performed By: #### L 500.2500, L100.0100 ####[facility] [address] [place], [address] CL Normal 98-108 [facility] Comment on above: Result Comment: Canc elled via OM: Order cancelled - Patient discharged Performed By: #### L 500.2500, L100.0100 ####[facility] [address] [place], [address] CO2 Normal 21.0-32.0 [facility] Comment on above: Result Comment: Canc elled via OM: Order cancelled - Patient discharged Performed By: #### L 500.2500, L100.0100 ####[facility] [address] [place], [address] CREAT,SERUM Normal 0.70-1.20 [facility] Comment on above: Result Comment: Canc elled via OM: Order cancelled - Patient discharged Performed By: #### L 500.2500, L100.0100 ####[facility] [address] [place], [address] eGFR Normal >60 [facility] Comment on above: Result Comment: Canc elled via OM: Order cancelled - Patient discharged Performed By: #### L 500.2500, L100.0100 ####[facility] [address] [place], [address] GAP Normal 5-15 [facility] Comment on above: Result Comment: Canc elled via OM: Order cancelled - Patient discharged Performed By: #### L 500.2500, L100.0100 ####[facility] [address] [place], [address] GLU Normal 70-99 [facility] Comment on above: Result Comment: Canc elled via OM: Order cancelled - Patient discharged Performed By: #### L 500.2500, L100.0100 ####[facility] [address] [place], [address] Potassium Normal 3.3-5.1 [facility] Comment on above: Result Comment: Canc elled via OM: Order cancelled - Patient discharged Performed By: #### L 500.2500, L100.0100 ####[facility] [address] [place], [address] Basic Metabolic Profile (BMP) Normal 133-145 [facility] Comment on above: Result Comment: Canc elled via OM: Order cancelled - Patient discharged Performed By: #### L 500.2500, L100.0100 ####[facility] [address] [place], [address] CBC W/Diff, Automatedon 06-0 5-2024 Absolute Neut Normal 2.0-7.7 [facility] Comment on above: Result Comment: Canc elled via OM: Order cancelled - Patient discharged Performed By: #### L 500.2500, L100.0100 ####[facility] [address] [place], [address] HCT Normal 37-47 [facility] Comment on above: Result Comment: Canc elled via OM: Order cancelled - Patient discharged Performed By: #### L 500.2500, L100.0100 ####[facility] [address] [place], [address] HGB Normal 12.0-15.0 [facility] Comment on above: Result Comment: Canc elled via OM: Order cancelled - Patient discharged Performed By: #### L 500.2500, L100.0100 ####[facility] [address] [place], [address] MCH Normal 27.0-32.0 [facility] Comment on above: Result Comment: Canc elled via OM: Order cancelled - Patient discharged Performed By: #### L 500.2500, L100.0100 ####[facility] [address] [place], [address] MCHC Normal 32-36 [facility] Comment on above: Result Comment: Canc elled via OM: Order cancelled - Patient discharged Performed By: #### L 500.2500, L100.0100 ####[facility] [address] [place], [address] MCV Normal 81-99 [facility] Comment on above: Result Comment: Canc elled via OM: Order cancelled - Patient discharged Performed By: #### L 500.2500, L100.0100 ####[facility] [address] [place], [address] NEUT% Normal 47-70 [facility] Comment on above: Result Comment: Canc elled via OM: Order cancelled - Patient discharged Performed By: #### L 500.2500, L100.0100 ####[facility] [address] [place], [address] PLT Normal 150-450 [facility] Comment on above: Result Comment: Canc elled via OM: Order cancelled - Patient discharged Performed By: #### L 500.2500, L100.0100 ####[facility] [address] [place], [address] RBC Normal 4.2-5.4 [facility] Comment on above: Result Comment: Canc elled via OM: Order cancelled - Patient discharged Performed By: #### L 500.2500, L100.0100 ####[facility] [address] [place], [address] RDW CV Normal 11.6-14.6 [facility] Comment on above: Result Comment: Canc elled via OM: Order cancelled - Patient discharged Performed By: #### L 500.2500, L100.0100 ####[facility] [address] [place], [address] RDW SD Normal 35.1-43.9 [facility] Comment on above: Result Comment: Canc elled via OM: Order cancelled - Patient discharged Performed By: #### L 500.2500, L100.0100 ####[facility] [address] [place], [address] WBC Normal 4.4-11.0 [facility] Comment on above: Result Comment: Canc elled via OM: Order cancelled - Patient discharged Performed By: #### L 500.2500, L100.0100 ####[facility] [address] [place], [address] Basic Metabolic Profile (BMP )on 01-29-2025 BUN Normal 4-19 [facility] Comment on above: Result Comment: Canc elled via OM: Order cancelled - Patient discharged Performed By: #### L 500.2500, L100.0100 ####[facility] [address] [place], [address] BUN/CRE Normal 10-20 [facility] Comment on above: Result Comment: Canc elled via OM: Order cancelled - Patient discharged Performed By: #### L 500.2500, L100.0100 ####[facility] [address] [place], [address] Calcium Normal 7.6-11.0 [facility] Comment on above: Result Comment: Canc elled via OM: Order cancelled - Patient discharged Performed By: #### L 500.2500, L100.0100 ####[facility] [address] [place], [address] CL Normal 98-108 [facility] Comment on above: Result Comment: Canc elled via OM: Order cancelled - Patient discharged Performed By: #### L 500.2500, L100.0100 ####[facility] [address] [place], [address] CO2 Normal 21.0-32.0 [facility] Comment on above: Result Comment: Canc elled via OM: Order cancelled - Patient discharged Performed By: #### L 500.2500, L100.0100 ####[facility] [address] [place], [address] CREAT,SERUM Normal 0.70-1.20 [facility] Comment on above: Result Comment: Canc elled via OM: Order cancelled - Patient discharged Performed By: #### L 500.2500, L100.0100 ####[facility] [address] [place], [address] eGFR Normal >60 [facility] Comment on above: Result Comment: Canc elled via OM: Order cancelled - Patient discharged Performed By: #### L 500.2500, L100.0100 ####[facility] [address] [place], [address] GAP Normal 5-15 [facility] Comment on above: Result Comment: Canc elled via OM: Order cancelled - Patient discharged Performed By: #### L 500.2500, L100.0100 ####[facility] [address] [place], [address] GLU Normal 70-99 [facility] Comment on above: Result Comment: Canc elled via OM: Order cancelled - Patient discharged Performed By: #### L 500.2500, L100.0100 ####[facility] [address] [place], [address] Potassium Normal 3.3-5.1 [facility] Comment on above: Result Comment: Canc elled via OM: Order cancelled - Patient discharged Performed By: #### L 500.2500, L100.0100 ####[facility] [address] [place], [address] Basic Metabolic Profile (BMP) Normal 133-145 [facility] Comment on above: Result Comment: Canc elled via OM: Order cancelled - Patient discharged Performed By: #### L 500.2500, L100.0100 ####[facility] [address] [place], [address] CBC W/Diff, Automatedon 06-0 Absolute Neut Normal 2.0-7.7 [facility] Comment on above: Result Comment: Canc elled via OM: Order cancelled - Patient discharged Performed By: #### L 500.2500, L100.0100 ####[facility] [address] [place], [address] HCT Normal 37-47 [facility] Comment on above: Result Comment: Canc elled via OM: Order cancelled - Patient discharged Performed By: #### L 500.2500, L100.0100 ####[facility] [address] [place], [address] HGB Normal 12.0-15.0 [facility] Comment on above: Result Comment: Canc elled via OM: Order cancelled - Patient discharged Performed By: #### L 500.2500, L100.0100 ####[facility] [address] [place], [address] MCH Normal 27.0-32.0 [facility] Comment on above: Result Comment: Canc elled via OM: Order cancelled - Patient discharged Performed By: #### L 500.2500, L100.0100 ####[facility] [address] [place], [address] MCHC Normal 32-36 [facility] Comment on above: Result Comment: Canc elled via OM: Order cancelled - Patient discharged Performed By: #### L 500.2500, L100.0100 ####[facility] [address] [place], [address] MCV Normal 81-99 [facility] Comment on above: Result Comment: Canc elled via OM: Order cancelled - Patient discharged Performed By: #### L 500.2500, L100.0100 ####[facility] [address] [place], [address] NEUT% Normal 47-70 [facility] Comment on above: Result Comment: Canc elled via OM: Order cancelled - Patient discharged Performed By: #### L 500.2500, L100.0100 ####[facility] [address] [place], [address] PLT Normal 150-450 [facility] Comment on above: Result Comment: Canc elled via OM: Order cancelled - Patient discharged Performed By: #### L 500.2500, L100.0100 ####[facility] [address] [place], [address] RBC Normal 4.2-5.4 [facility] Comment on above: Result Comment: Canc elled via OM: Order cancelled - Patient discharged Performed By: #### L 500.2500, L100.0100 ####[facility] [address] [place], [address] RDW CV Normal 11.6-14.6 [facility] Comment on above: Result Comment: Canc elled via OM: Order cancelled - Patient discharged Performed By: #### L 500.2500, L100.0100 ####[facility] [address] [place], [address] RDW SD Normal 35.1-43.9 [facility] Comment on above: Result Comment: Canc elled via OM: Order cancelled - Patient discharged Performed By: #### L 500.2500, L100.0100 ####[facility] [address] [place], [address] WBC Normal 4.4-11.0 [facility] Comment on above: Result Comment: Canc elled via OM: Order cancelled - Patient discharged Performed By: #### L 500.2500, L100.0100 ####[facility] [address] [place], [address] Basic Metabolic Profile (BMP )on 01-28-2025 BUN Normal 4-19 [facility] Comment on above: Result Comment: Canc elled via OM: Order cancelled - Patient discharged Performed By: #### L 500.2500, L100.0100 ####[facility] [address] [place], [address] BUN/CRE Normal 10-20 [facility] Comment on above: Result Comment: Canc elled via OM: Order cancelled - Patient discharged Performed By: #### L 500.2500, L100.0100 ####[facility] [address] [place], [address] Calcium Normal 7.6-11.0 [facility] Comment on above: Result Comment: Canc elled via OM: Order cancelled - Patient discharged Performed By: #### L 500.2500, L100.0100 ####[facility] [address] [place], [address] CL Normal 98-108 [facility] Comment on above: Result Comment: Canc elled via OM: Order cancelled - Patient discharged Performed By: #### L 500.2500, L100.0100 ####[facility] [address] [place], [address] CO2 Normal 21.0-32.0 [facility] Comment on above: Result Comment: Canc elled via OM: Order cancelled - Patient discharged Performed By: #### L 500.2500, L100.0100 ####[facility] [address] [place], [address] CREAT,SERUM Normal 0.70-1.20 [facility] Comment on above: Result Comment: Canc elled via OM: Order cancelled - Patient discharged Performed By: #### L 500.2500, L100.0100 ####[facility] [address] [place], [address] eGFR Normal >60 [facility] Comment on above: Result Comment: Canc elled via OM: Order cancelled - Patient discharged Performed By: #### L 500.2500, L100.0100 ####[facility] [address] [place], [address] GAP Normal 5-15 [facility] Comment on above: Result Comment: Canc elled via OM: Order cancelled - Patient discharged Performed By: #### L 500.2500, L100.0100 ####[facility] [address] [place], [address] GLU Normal 70-99 [facility] Comment on above: Result Comment: Canc elled via OM: Order cancelled - Patient discharged Performed By: #### L 500.2500, L100.0100 ####[facility] [address] [place], [address] Potassium Normal 3.3-5.1 [facility] Comment on above: Result Comment: Canc elled via OM: Order cancelled - Patient discharged Performed By: #### L 500.2500, L100.0100 ####[facility] [address] [place], [address] Basic Metabolic Profile (BMP) Normal 133-145 [facility] Comment on above: Result Comment: Canc elled via OM: Order cancelled - Patient discharged Performed By: #### L 500.2500, L100.0100 ####[facility] [address] [place], [address] CBC W/Diff, Automatedon 06-0 Absolute Neut Normal 2.0-7.7 [facility] Comment on above: Result Comment: Canc elled via OM: Order cancelled - Patient discharged Performed By: #### L 500.2500, L100.0100 ####[facility] [address] [place], [address] HCT Normal 37-47 [facility] Comment on above: Result Comment: Canc elled via OM: Order cancelled - Patient discharged Performed By: #### L 500.2500, L100.0100 ####[facility] [address] [place], [address] HGB Normal 12.0-15.0 [facility] Comment on above: Result Comment: Canc elled via OM: Order cancelled - Patient discharged Performed By: #### L 500.2500, L100.0100 ####[facility] [address] [place], [address] MCH Normal 27.0-32.0 [facility] Comment on above: Result Comment: Canc elled via OM: Order cancelled - Patient discharged Performed By: #### L 500.2500, L100.0100 ####[facility] [address] [place], [address] MCHC Normal 32-36 [facility] Comment on above: Result Comment: Canc elled via OM: Order cancelled - Patient discharged Performed By: #### L 500.2500, L100.0100 ####[facility] [address] [place], [address] MCV Normal 81-99 [facility] Comment on above: Result Comment: Canc elled via OM: Order cancelled - Patient discharged Performed By: #### L 500.2500, L100.0100 ####[facility] [address] [place], [address] NEUT% Normal 47-70 [facility] Comment on above: Result Comment: Canc elled via OM: Order cancelled - Patient discharged Performed By: #### L 500.2500, L100.0100 ####[facility] [address] [place], [address] PLT Normal 150-450 [facility] Comment on above: Result Comment: Canc elled via OM: Order cancelled - Patient discharged Performed By: #### L 500.2500, L100.0100 ####[facility] [address] [place], [address] RBC Normal 4.2-5.4 [facility] Comment on above: Result Comment: Canc elled via OM: Order cancelled - Patient discharged Performed By: #### L 500.2500, L100.0100 ####[facility] [address] [place], [address] RDW CV Normal 11.6-14.6 [facility] Comment on above: Result Comment: Canc elled via OM: Order cancelled - Patient discharged Performed By: #### L 500.2500, L100.0100 ####[facility] [address] [place], [address] RDW SD Normal 35.1-43.9 [facility] Comment on above: Result Comment: Canc elled via OM: Order cancelled - Patient discharged Performed By: #### L 500.2500, L100.0100 ####[facility] [address] [place], [address] WBC Normal 4.4-11.0 [facility] Comment on above: Result Comment: Canc elled via OM: Order cancelled - Patient discharged Performed By: #### L 500.2500, L100.0100 ####[facility] [address] [place], [address] Basic Metabolic Profile (BMP )on 01-27-2025 BUN Normal 4-19 [facility] Comment on above: Result Comment: Canc elled via OM: Order cancelled - Patient discharged Performed By: #### L 100.0100, L500.2500 ####[facility] [address] [place], [address] BUN/CRE Normal 10-20 [facility] Comment on above: Result Comment: Canc elled via OM: Order cancelled - Patient discharged Performed By: #### L 100.0100, L500.2500 ####[facility] [address] [place], [address] Calcium Normal 7.6-11.0 [facility] Comment on above: Result Comment: Canc elled via OM: Order cancelled - Patient discharged Performed By: #### L 100.0100, L500.2500 ####[facility] [address] [place], [address] CL Normal 98-108 [facility] Comment on above: Result Comment: Canc elled via OM: Order cancelled - Patient discharged Performed By: #### L 100.0100, L500.2500 ####[facility] [address] [place], [address] CO2 Normal 21.0-32.0 [facility] Comment on above: Result Comment: Canc elled via OM: Order cancelled - Patient discharged Performed By: #### L 100.0100, L500.2500 ####[facility] [address] [place], [address] CREAT,SERUM Normal 0.70-1.20 [facility] Comment on above: Result Comment: Canc elled via OM: Order cancelled - Patient discharged Performed By: #### L 100.0100, L500.2500 ####[facility] [address] [place], [address] eGFR Normal >60 [facility] Comment on above: Result Comment: Canc elled via OM: Order cancelled - Patient discharged Performed By: #### L 100.0100, L500.2500 ####[facility] [address] [place], [address] GAP Normal 5-15 [facility] Comment on above: Result Comment: Canc elled via OM: Order cancelled - Patient discharged Performed By: #### L 100.0100, L500.2500 ####[facility] [address] [place], [address] GLU Normal 70-99 [facility] Comment on above: Result Comment: Canc elled via OM: Order cancelled - Patient discharged Performed By: #### L 100.0100, L500.2500 ####[facility] [address] [place], [address] Potassium Normal 3.3-5.1 [facility] Comment on above: Result Comment: Canc elled via OM: Order cancelled - Patient discharged Performed By: #### L 100.0100, L500.2500 ####[facility] [address] [place], [address] Basic Metabolic Profile (BMP) Normal 133-145 [facility] Comment on above: Result Comment: Canc elled via OM: Order cancelled - Patient discharged Performed By: #### L 100.0100, L500.2500 ####[facility] [address] [place], [address] Bedside Glucoseon 01-27-2025 FINGERSTICK GLU 350 mg/dL High 74-106 [facility] Comment on above: Result Comment: EDGAR GEMENT OF PATIENT CARE PER NURSING PROTOCOL Performed By: #### L 501.080 ####[facility] [address] [place], [address] FINGERSTICK GLU 322 mg/dL High 74-106 [facility] Comment on above: Result Comment: EDGAR GEMENT OF PATIENT CARE PER NURSING PROTOCOL Performed By: #### L 501.080 ####[facility] [address] [place], [address] FINGERSTICK GLU 340 mg/dL High 74-106 [facility] Comment on above: Result Comment: EDGAR GEMENT OF PATIENT CARE PER NURSING PROTOCOL Performed By: #### L 501.080 ####[facility] [address] [place], [address] CBC W/Diff, Automatedon 06-0 Absolute Neut Normal 2.0-7.7 [facility] Comment on above: Result Comment: Canc elled via OM: Order cancelled - Patient discharged Performed By: #### L 100.0100, L500.2500 ####[facility] [address] [place], [address] HCT Normal 37-47 [facility] Comment on above: Result Comment: Canc elled via OM: Order cancelled - Patient discharged Performed By: #### L 100.0100, L500.2500 ####[facility] [address] [place], [address] HGB Normal 12.0-15.0 [facility] Comment on above: Result Comment: Canc elled via OM: Order cancelled - Patient discharged Performed By: #### L 100.0100, L500.2500 ####[facility] [address] [place], [address] MCH Normal 27.0-32.0 [facility] Comment on above: Result Comment: Canc elled via OM: Order cancelled - Patient discharged Performed By: #### L 100.0100, L500.2500 ####[facility] [address] [place], [address] MCHC Normal 32-36 [facility] Comment on above: Result Comment: Canc elled via OM: Order cancelled - Patient discharged Performed By: #### L 100.0100, L500.2500 ####[facility] [address] [place], [address] MCV Normal 81-99 [facility] Comment on above: Result Comment: Canc elled via OM: Order cancelled - Patient discharged Performed By: #### L 100.0100, L500.2500 ####[facility] [address] [place], [address] NEUT% Normal 47-70 [facility] Comment on above: Result Comment: Canc elled via OM: Order cancelled - Patient discharged Performed By: #### L 100.0100, L500.2500 ####[facility] [address] [place], [address] PLT Normal 150-450 [facility] Comment on above: Result Comment: Canc elled via OM: Order cancelled - Patient discharged Performed By: #### L 100.0100, L500.2500 ####[facility] [address] [place], [address] RBC Normal 4.2-5.4 [facility] Comment on above: Result Comment: Canc elled via OM: Order cancelled - Patient discharged Performed By: #### L 100.0100, L500.2500 ####[facility] [address] [place], [address] RDW CV Normal 11.6-14.6 [facility] Comment on above: Result Comment: Canc elled via OM: Order cancelled - Patient discharged Performed By: #### L 100.0100, L500.2500 ####[facility] [address] [place], [address] RDW SD Normal 35.1-43.9 [facility] Comment on above: Result Comment: Canc elled via OM: Order cancelled - Patient discharged Performed By: #### L 100.0100, L500.2500 ####[facility] [address] [place], [address] WBC Normal 4.4-11.0 [facility] Comment on above: Result Comment: Canc elled via OM: Order cancelled - Patient discharged Performed By: #### L 100.0100, L500.2500 ####[facility] [address] [place], [address] Office Visiton 01-27-2025 Follow-up visit [id number] Kathleen Villa 1995 F Date Provider Department Center 01/27/2025 [facility] None Family History Problem Relation Age of Onset Anxiety disorder Mother Multiple sclerosis Father Psoriasis Father Family Status - Relation Status Age at Mother Alive Father Alive Level of Service:33532 [place] OFFICE/OUTPATIENT ESTABLISHED MOD MDM 30 MIN Reason for Visit and Comments: Skin Lesion [[id number]] - (PKN) [facility] Progress Noteon 01-27-2025 Progress Note DATE OF SERVICE: 01/27/2025 PATIENT NAME: Kathleen Villa : 1995 AGE: 29 y.o. CLINIC NUMBER: [id number] Visit type: Established patient Chief Complaint Patient [...] Adhesive? Yes- adhesives. Social History: Born/raised in [place]. Excessive sun exposure: Yes Used tanning beds: [...] exposure. Patien (more content not included)... Normal [facility] Basic Metabolic Profile (BMP )on 01-26-2025 BUN/CRE 7.8 RATIO Low 10-20 [facility] Comment on above: Performed By: #### L 100.0100, L500.2500 ####[facility] [address] [place], [address] Calcium [Mass/Vol] 8.5 mg/dL Normal 7.6-11.0 [facility] Comment on above: Performed By: #### L 100.0100, L500.2500 ####[facility] [address] [place], [address] Chloride [Moles/Vol] 97 mmol/L Low 98-108 [facility] Comment on above: Performed By: #### L 100.0100, L500.2500 ####[facility] [address] [place], [address] CO2 [Moles/Vol] 12.9 mmol/L Low 21.0-32.0 [facility] Comment on above: Performed By: #### L 100.0100, L500.2500 ####[facility] [address] [place], [address] Creatinine [Mass/Vol] 0.76 mg/dL Normal 0.70-1.20 [facility] Comment on above: Performed By: #### L 100.0100, L500.2500 ####[facility] [address] [place], [address] ECRCL 109.19 ml/min Normal 50-250 [facility] Comment on above: Performed By: #### L 100.0100, L500.2500 ####[facility] [address] [place], [address] GAP 24 High 5-15 [facility] Comment on above: Performed By: #### L 100.0100, L500.2500 ####[facility] [address] [place], [address] GFR/1.73 sq M.predicted among non-blacks MDRD (S/P/Bld) [Vol rate/Area] 109 mL/min/{1.73_m2} Normal >60 [facility] Comment on above: Result Comment: mL/m in/1.73m2 CKD-EPI Creatinine Equation (2020) Performed By: #### L 100.0100, L500.2500 ####[facility] [address] [place], [address] Glucose [Mass/Vol] 315 mg/dL High 70-99 [facility] Comment on above: Performed By: #### L 100.0100, L500.2500 ####[facility] [address] [place], [address] Potassium [Moles/Vol] 3.0 mmol/L Low 3.3-5.1 [facility] Comment on above: Performed By: #### L 100.0100, L500.2500 ####[facility] [address] [place], [address] Sodium [Moles/Vol] 133 mmol/L Normal 133-145 [facility] Comment on above: Performed By: #### L 100.0100, L500.2500 ####[facility] [address] [place], [address] Urea nitrogen [Mass/Vol] 6 mg/dL Normal 4-19 [facility] Comment on above: Performed By: #### L 100.0100, L500.2500 ####[facility] [address] [place], [address] Bedside Glucoseon 01-26-2024 FINGERSTICK GLU 328 mg/dL High 74-106 [facility] Comment on above: Result Comment: EDGAR GEMENT OF PATIENT CARE PER NURSING PROTOCOL Performed By: #### L 501.080 ####[facility] [address] [place], [address] FINGERSTICK GLU 306 mg/dL High 74-106 [facility] Comment on above: Result Comment: EDGAR GEMENT OF PATIENT CARE PER NURSING PROTOCOL Performed By: #### L 501.080 ####[facility] [address] [place], [address] CBC W/Diff, Automatedon 06-0 Absolute Lymph 1.50 X10 3/uL Normal 0.83-4.51 [facility] Comment on above: Performed By: #### L 100.0100, L500.2500 ####[facility] [address] [place], [address] Absolute Neut 13.5 X10 3/uL High 2.0-7.7 [facility] Comment on above: Performed By: #### L 100.0100, L500.2500 ####[facility] [address] [place], [address] Basophils/100 WBC (Bld) 0.3 % Normal 0-1 [facility] Comment on above: Performed By: #### L 100.0100, L500.2500 ####[facility] [address] [place], [address] Eosinophils/100 WBC (Bld) 0.0 % Normal 0-5 [facility] Comment on above: Performed By: #### L 100.0100, L500.2500 ####[facility] [address] [place], [address] Erythrocyte distribution width (RBC) [Ratio] 13.1 % Normal 11.6-14.6 [facility] Comment on above: Performed By: #### L 100.0100, L500.2500 ####[facility] [address] [place], [address] Hematocrit (Bld) [Volume fraction] 38.8 % Normal 37-47 [facility] Comment on above: Performed By: #### L 100.0100, L500.2500 ####[facility] [address] [place], [address] Hemoglobin (Bld) [Mass/Vol] 13.4 g/dL Normal 12.0-15.0 [facility] Comment on above: Performed By: #### L 100.0100, L500.2500 ####[facility] [address] [place], [address] IG% 1.300 High 0.0-0.9 [facility] Comment on above: Result Comment: IG% - Immature Granulocytes (promyelocytes, myelocytes andmetamyelocytes) > 1% indicates that a LEFT SHIFT is Present. Performed By: #### L 100.0100, L500.2500 ####[facility] [address] [place], [address] Lymphocytes/100 WBC (Bld) 9.3 % Low 19-41 [facility] Comment on above: Performed By: #### L 100.0100, L500.2500 ####[facility] [address] [place], [address] MCH (RBC) [Entitic mass] 30.0 pg Normal 27.0-32.0 [facility] Comment on above: Performed By: #### L 100.0100, L500.2500 ####[facility] [address] [place], [address] MCHC (RBC) [Mass/Vol] 34.5 g/dL Normal 32-36 [facility] Comment on above: Performed By: #### L 100.0100, L500.2500 ####[facility] [address] [place], [address] MCV (RBC) [Entitic vol] 86.8 fL Normal 81-99 [facility] Comment on above: Performed By: #### L 100.0100, L500.2500 ####[facility] [address] [place], [address] Monocytes/100 WBC (Bld) 5.2 % Normal 0-10 [facility] Comment on above: Performed By: #### L 100.0100, L500.2500 ####[facility] [address] [place], [address] Neutrophils/100 WBC (Bld) 83.9 % High 47-70 [facility] Comment on above: Performed By: #### L 100.0100, L500.2500 ####[facility] [address] [place], [address] Nucleated RBC (Bld) [#/Vol] 0 10*3/uL Normal 0-5 [facility] Comment on above: Performed By: #### L 100.0100, L500.2500 ####[facility] [address] [place], [address] Platelet mean volume (Bld) [Entitic vol] 11.5 fL Normal 6.2-12.0 [facility] Comment on above: Performed By: #### L 100.0100, L500.2500 ####[facility] [address] [place], [address] Platelets (Bld) [#/Vol] 169 10*3/uL Normal 150-450 [facility] Comment on above: Performed By: #### L 100.0100, L500.2500 ####[facility] [address] [place], [address] RBC (Bld) [#/Vol] 4.47 10*6/uL Normal 4.2-5.4 [facility] Comment on above: Performed By: #### L 100.0100, L500.2500 ####[facility] [address] [place], [address] RDW SD 41.1 fl Normal 35.1-43.9 [facility] Comment on above: Performed By: #### L 100.0100, L500.2500 ####[facility] [address] [place], [address] WBC (Bld) [#/Vol] 16.1 10*3/uL High 4.4-11.0 [facility] Comment on above: Performed By: #### L 100.0100, L500.2500 ####[facility] [address] [place], [address] Discharge Instructionon 06-0 Discharge Instruction Normal [facility] Basic Metabolic Profile (BMP )on 01-25-2025 BUN/CRE 8.0 RATIO Low 10-20 [facility] Comment on above: Performed By: #### L 100.0100, L500.2500 ####[facility] [address] [place], [address] Calcium [Mass/Vol] 8.1 mg/dL Normal 7.6-11.0 [facility] Comment on above: Performed By: #### L 100.0100, L500.2500 ####[facility] [address] [place], [address] Chloride [Moles/Vol] 100 mmol/L Normal 98-108 [facility] Comment on above: Performed By: #### L 100.0100, L500.2500 ####[facility] [address] [place], [address] CO2 [Moles/Vol] 14.7 mmol/L Low 21.0-32.0 [facility] Comment on above: Performed By: #### L 100.0100, L500.2500 ####[facility] [address] [place], [address] Creatinine [Mass/Vol] 0.66 mg/dL Low 0.70-1.20 [facility] Comment on above: Performed By: #### L 100.0100, L500.2500 ####[facility] [address] [place], [address] ECRCL 125.73 ml/min Normal 50-250 [facility] Comment on above: Performed By: #### L 100.0100, L500.2500 ####[facility] [address] [place], [address] GAP 22 High 5-15 [facility] Comment on above: Performed By: #### L 100.0100, L500.2500 ####[facility] [address] [place], [address] GFR/1.73 sq M.predicted among non-blacks MDRD (S/P/Bld) [Vol rate/Area] 121 mL/min/{1.73_m2} Normal >60 [facility] Comment on above: Result Comment: mL/m in/1.73m2 CKD-EPI Creatinine Equation (2020) Performed By: #### L 100.0100, L500.2500 ####[facility] [address] [place], [address] Glucose [Mass/Vol] 287 mg/dL High 70-99 [facility] Comment on above: Performed By: #### L 100.0100, L500.2500 ####[facility] [address] [place], [address] Potassium [Moles/Vol] 2.9 mmol/L Low 3.3-5.1 [facility] Comment on above: Performed By: #### L 100.0100, L500.2500 ####[facility] [address] [place], [address] Sodium [Moles/Vol] 136 mmol/L Normal 133-145 [facility] Comment on above: Performed By: #### L 100.0100, L500.2500 ####[facility] [address] [place], [address] Urea nitrogen [Mass/Vol] 5 mg/dL Normal 4-19 [facility] Comment on above: Performed By: #### L 100.0100, L500.2500 ####[facility] [address] [place], [address] Bedside Glucoseon --2024 FINGERSTICK GLU 352 mg/dL High 74-106 [facility] Comment on above: Result Comment: EDGAR GEMENT OF PATIENT CARE PER NURSING PROTOCOL Performed By: #### L 501.080 ####[facility] [address] [place], [address] FINGERSTICK GLU 220 mg/dL High 74-106 [facility] Comment on above: Result Comment: EDGAR GEMENT OF PATIENT CARE PER NURSING PROTOCOL Performed By: #### L 501.080 ####[facility] [address] [place], [address] CBC W/Diff, Automatedon 05-3 Absolute Lymph 1.08 X10 3/uL Normal 0.83-4.51 [facility] Comment on above: Performed By: #### L 100.0100, L500.2500 ####[facility] [address] [place], [address] Absolute Neut 19.8 X10 3/uL High 2.0-7.7 [facility] Comment on above: Performed By: #### L 100.0100, L500.2500 ####[facility] [address] [place], [address] Basophils/100 WBC (Bld) 0.2 % Normal 0-1 [facility] Comment on above: Performed By: #### L 100.0100, L500.2500 ####[facility] [address] [place], [address] Eosinophils/100 WBC (Bld) 0.0 % Normal 0-5 [facility] Comment on above: Performed By: #### L 100.0100, L500.2500 ####[facility] [address] [place], [address] Erythrocyte distribution width (RBC) [Ratio] 12.9 % Normal 11.6-14.6 [facility] Comment on above: Performed By: #### L 100.0100, L500.2500 ####[facility] [address] [place], [address] Hematocrit (Bld) [Volume fraction] 32.9 % Low 37-47 [facility] Comment on above: Performed By: #### L 100.0100, L500.2500 ####[facility] [address] [place], [address] Hemoglobin (Bld) [Mass/Vol] 11.3 g/dL Low 12.0-15.0 [facility] Comment on above: Performed By: #### L 100.0100, L500.2500 ####[facility] [address] [place], [address] IG% 1.100 High 0.0-0.9 [facility] Comment on above: Result Comment: IG% - Immature Granulocytes (promyelocytes, myelocytes andmetamyelocytes) > 1% indicates that a LEFT SHIFT is Present. Performed By: #### L 100.0100, L500.2500 ####[facility] [address] [place], [address] Lymphocytes/100 WBC (Bld) 4.8 % Low 19-41 [facility] Comment on above: Performed By: #### L 100.0100, L500.2500 ####[facility] [address] [place], [address] MCH (RBC) [Entitic mass] 29.7 pg Normal 27.0-32.0 [facility] Comment on above: Performed By: #### L 100.0100, L500.2500 ####[facility] [address] [place], [address] MCHC (RBC) [Mass/Vol] 34.3 g/dL Normal 32-36 [facility] Comment on above: Performed By: #### L 100.0100, L500.2500 ####[facility] [address] [place], [address] MCV (RBC) [Entitic vol] 86.6 fL Normal 81-99 [facility] Comment on above: Performed By: #### L 100.0100, L500.2500 ####[facility] [address] [place], [address] Monocytes/100 WBC (Bld) 6.8 % Normal 0-10 [facility] Comment on above: Performed By: #### L 100.0100, L500.2500 ####[facility] [address] [place], [address] Neutrophils/100 WBC (Bld) 87.1 % High 47-70 [facility] Comment on above: Performed By: #### L 100.0100, L500.2500 ####[facility] [address] [place], [address] Nucleated RBC (Bld) [#/Vol] 0 10*3/uL Normal 0-5 [facility] Comment on above: Performed By: #### L 100.0100, L500.2500 ####[facility] [address] [place], [address] Platelet mean volume (Bld) [Entitic vol] 12.0 fL Normal 6.2-12.0 [facility] Comment on above: Performed By: #### L 100.0100, L500.2500 ####[facility] [address] [place], [address] Platelets (Bld) [#/Vol] 129 10*3/uL Low 150-450 [facility] Comment on above: Performed By: #### L 100.0100, L500.2500 ####[facility] [address] [place], [address] RBC (Bld) [#/Vol] 3.80 10*6/uL Low 4.2-5.4 [facility] Comment on above: Performed By: #### L 100.0100, L500.2500 ####[facility] [address] [place], [address] RDW SD 40.6 fl Normal 35.1-43.9 [facility] Comment on above: Performed By: #### L 100.0100, L500.2500 ####[facility] [address] [place], [address] WBC (Bld) [#/Vol] 22.7 10*3/uL High 4.4-11.0 [facility] Comment on above: Performed By: #### L 100.0100, L500.2500 ####[facility] [address] [place], [address] Magnesiumon 01-25-2025 Magnesium [Mass/Vol] 1.6 mg/dL Normal 1.5-2.2 [facility] Comment on above: Performed By: #### L 501.2300, L501.5200 ####[facility] [address] [place], [address] Phosphoruson 01-25-2025 Phosphate [Mass/Vol] 2.1 mg/dL Low 2.7-4.5 [facility] Comment on above: Performed By: #### L 501.2300, L501.5200 ####[facility] [address] [place], [address] Basic Metabolic Profile (BMP )on 01-24-2025 BUN/CRE 6.3 RATIO Low 10-20 [facility] Comment on above: Performed By: #### L 500.2500 ####[facility] [address] [place], [address] Calcium [Mass/Vol] 7.6 mg/dL Normal 7.6-11.0 [facility] Comment on above: Performed By: #### L 500.2500 ####[facility] [address] [place], [address] Chloride [Moles/Vol] 111 mmol/L High 98-108 [facility] Comment on above: Performed By: #### L 500.2500 ####[facility] [address] [place], [address] CO2 [Moles/Vol] 18.8 mmol/L Low 21.0-32.0 [facility] Comment on above: Performed By: #### L 500.2500 ####[facility] [address] [place], [address] Creatinine [Mass/Vol] 0.64 mg/dL Low 0.70-1.20 [facility] Comment on above: Performed By: #### L 500.2500 ####[facility] [address] [place], [address] ECRCL 129.66 ml/min Normal 50-250 [facility] Comment on above: Performed By: #### L 500.2500 ####[facility] [address] [place], [address] GAP 6 Normal 5-15 [facility] Comment on above: Performed By: #### L 500.2500 ####[facility] [address] [place], [address] GFR/1.73 sq M.predicted among non-blacks MDRD (S/P/Bld) [Vol rate/Area] 122 mL/min/{1.73_m2} Normal >60 [facility] Comment on above: Result Comment: mL/m in/1.73m2 CKD-EPI Creatinine Equation (2020) Performed By: #### L 500.2500 ####[facility] [address] [place], [address] Glucose [Mass/Vol] 182 mg/dL High 70-99 [facility] Comment on above: Performed By: #### L 500.2500 ####[facility] [address] [place], [address] Potassium [Moles/Vol] 3.9 mmol/L Normal 3.3-5.1 [facility] Comment on above: Performed By: #### L 500.2500 ####[facility] [address] [place], [address] Sodium [Moles/Vol] 136 mmol/L Normal 133-145 [facility] Comment on above: Performed By: #### L 500.2500 ####[facility] [address] [place], [address] Urea nitrogen [Mass/Vol] 4 mg/dL Normal 4-19 [facility] Comment on above: Performed By: #### L 500.2500 ####[facility] [address] [place], [address] CO2 [Moles/Vol] 9.9 mmol/L Invalid Interpretation Code 21.0-32.0 [facility] Comment on above: Order Comment: Call [...] by same. Performed By: #### L 500.2500 ####[facility] [address] [place], [place], [id number] BUN/CRE 8.6 RATIO Low 10-20 [facility] Comment on above: Order Comment: Call with results STAT Performed By: #### L 500.2500 ####[facility] [address] [place], [place], [phone] Calcium [Mass/Vol] 7.8 mg/dL Normal 7.6-11.0 [facility] Comment on above: Order Comment: Call with results STAT Performed By: #### L 500.2500 ####[facility] [address] [place], [place], [phone] Chloride [Moles/Vol] 113 mmol/L High 98-108 [facility] Comment on above: Order Comment: Call with results STAT Performed By: #### L 500.2500 ####[facility] [address] [place], [address] CO2 [Moles/Vol] 18.6 mmol/L Low 21.0-32.0 [facility] Comment on above: Order Comment: Call MD with results STAT Performed By: #### L 500.2500 ####[facility] [address] [place], [address] Creatinine [Mass/Vol] 0.65 mg/dL Low 0.70-1.20 [facility] Comment on above: Order Comment: Call MD with results STAT Performed By: #### L 500.2500 ####[facility] [address] [place], [address] ECRCL 127.66 ml/min Normal 50-250 [facility] Comment on above: Order Comment: Call MD with results STAT Performed By: #### L 500.2500 ####[facility] [address] [place], [address] GAP 9 Normal 5-15 [facility] Comment on above: Order Comment: Call MD with results STAT Performed By: #### L 500.2500 ####[facility] [address] [place], [address] GFR/1.73 sq M.predicted among non-blacks MDRD (S/P/Bld) [Vol rate/Area] 121 mL/min/{1.73_m2} Normal >60 [facility] Comment on above: Order Comment: Call MD with results STAT Result Comment: mL/m in/1.73m2 CKD-EPI Creatinine Equation (2020) Performed By: #### L 500.2500 ####[facility] [address] [place], [address] Glucose [Mass/Vol] 121 mg/dL High 70-99 [facility] Comment on above: Order Comment: Call MD with results STAT Performed By: #### L 500.2500 ####[facility] [address] [place], [address] Potassium [Moles/Vol] 2.9 mmol/L Low 3.3-5.1 [facility] Comment on above: Order Comment: Call MD with results STAT Performed By: #### L 500.2500 ####[facility] [address] [place], [address] Sodium [Moles/Vol] 141 mmol/L Normal 133-145 [facility] Comment on above: Order Comment: Call MD with results STAT Performed By: #### L 500.2500 ####[facility] [address] [place], [address] Urea nitrogen [Mass/Vol] 6 mg/dL Normal 4-19 [facility] Comment on above: Order Comment: Call MD with results STAT Performed By: #### L 500.2500 ####[facility] [address] [place], [address] Bedside Glucoseon 01-24-2025 FINGERSTICK GLU 304 mg/dL High 74-106 [facility] Comment on above: Result Comment: EDGAR GEMENT OF PATIENT CARE PER NURSING PROTOCOL Performed By: #### L 501.080 ####[facility] [address] [place], [address] FINGERSTICK GLU 239 mg/dL High -[address] [place] [address] Comment on above: Result Comment: EDGAR GEMENT OF PATIENT CARE PER NURSING PROTOCOL Performed By: #### L 501.080 ####[facility] [address] [place], [address] FINGERSTICK GLU 400 mg/dL High -[address] [place] [address] Comment on above: Result Comment: EDGAR GEMENT OF PATIENT CARE PER NURSING PROTOCOL Performed By: #### L 501.080 ####[facility] [address] [place], [address] FINGERSTICK GLU 309 mg/dL High -106 [facility] Comment on above: Result Comment: EDGAR GEMENT OF PATIENT CARE PER NURSING PROTOCOL Performed By: #### L 501.080 ####[facility] [address] [place], [address] FINGERSTICK GLU 261 mg/dL High 74-106 [facility] Comment on above: Result Comment: EDGAR GEMENT OF PATIENT CARE PER NURSING PROTOCOL Performed By: #### L 501.080 ####[facility] [address] [place], [address] FINGERSTICK GLU 129 mg/dL High 74-106 [facility] Comment on above: Result Comment: EDGAR GEMENT OF PATIENT CARE PER NURSING PROTOCOL Performed By: #### L 501.080 ####[facility] [address] [place], [address] FINGERSTICK GLU 177 mg/dL High 74-106 [facility] Comment on above: Result Comment: EDGAR GEMENT OF PATIENT CARE PER NURSING PROTOCOL Performed By: #### L 501.080 ####[facility] [address] [place], [address] FINGERSTICK GLU 167 mg/dL High 74-106 [facility] Comment on above: Result Comment: EDGAR GEMENT OF PATIENT CARE PER NURSING PROTOCOL Performed By: #### L 501.080 ####[facility] [address] [place], [address] FINGERSTICK GLU 172 mg/dL High 74-106 [facility] Comment on above: Result Comment: EDGAR GEMENT OF PATIENT CARE PER NURSING PROTOCOL Performed By: #### L 501.080 ####[facility] [address] [place], [address] FINGERSTICK GLU 156 mg/dL High 74-106 [facility] Comment on above: Result Comment: EDGAR GEMENT OF PATIENT CARE PER NURSING PROTOCOL Performed By: #### L 501.080 ####[facility] [address] [place], [address] FINGERSTICK GLU 123 mg/dL High 74-106 [facility] Comment on above: Result Comment: EDGAR GEMENT OF PATIENT CARE PER NURSING PROTOCOL Performed By: #### L 501.080 ####[facility] [address] [place], [address] FINGERSTICK GLU 97 mg/dL Normal 74-106 [facility] Comment on above: Result Comment: EDGAR GEMENT OF PATIENT CARE PER NURSING PROTOCOL Performed By: #### L 501.080 ####[facility] [address] [place], [address] FINGERSTICK GLU 115 mg/dL High 74-106 [facility] Comment on above: Result Comment: EDGAR GEMENT OF PATIENT CARE PER NURSING PROTOCOL Performed By: #### L 501.080 ####[facility] [address] [place], [address] FINGERSTICK GLU 143 mg/dL High -106 [facility] Comment on above: Result Comment: EDGAR GEMENT OF PATIENT CARE PER NURSING PROTOCOL Performed By: #### L 501.080 ####[facility] [address] [place], [address] CBC W/Diff, Automatedon 05-3 SMEAR COMMENT COMMENT Normal [facility] Comment on above: Result Comment: LYMP HOPENIA. Performed By: #### L 100.0100 ####[facility] [address] [place], [address] PLT EST MOD DEC Normal ADEQ [facility] Comment on above: Performed By: #### L 100.0100 ####[facility] [address] [place], [address] Basic Metabolic Profile (BMP )on 01-23-2025 BUN/CRE 11.7 RATIO Normal 10-20 [facility] Comment on above: Order Comment: Call MD with results STAT Performed By: #### L 500.2500 ####[facility] [address] [place], [address] Calcium [Mass/Vol] 7.7 mg/dL Normal 7.6-11.0 [facility] Comment on above: Order Comment: Call MD with results STAT Performed By: #### L 500.2500 ####[facility] [address] [place], [address] Chloride [Moles/Vol] 112 mmol/L High 98-108 [facility] Comment on above: Order Comment: Call MD with results STAT Performed By: #### L 500.2500 ####[facility] [address] [place], [address] CO2 [Moles/Vol] 16.8 mmol/L Low 21.0-32.0 [facility] Comment on above: Order Comment: Call MD with results STAT Performed By: #### L 500.2500 ####[facility] [address] [place], [address] Creatinine [Mass/Vol] 0.64 mg/dL Low 0.70-1.20 [facility] Comment on above: Order Comment: Call MD with results STAT Performed By: #### L 500.2500 ####[facility] [address] [place], [address] ECRCL 129.66 ml/min Normal 50-250 [facility] Comment on above: Order Comment: Call MD with results STAT Performed By: #### L 500.2500 ####[facility] [address] [place], [address] GAP 10 Normal 5-15 [facility] Comment on above: Order Comment: Call MD with results STAT Performed By: #### L 500.2500 ####[facility] [address] [place], [address] GFR/1.73 sq M.predicted among non-blacks MDRD (S/P/Bld) [Vol rate/Area] 122 mL/min/{1.73_m2} Normal >60 [facility] Comment on above: Order Comment: Call MD with results STAT Result Comment: mL/m in/1.73m2 CKD-EPI Creatinine Equation (2020) Performed By: #### L 500.2500 ####[facility] [address] [place], [address] Glucose [Mass/Vol] 150 mg/dL High 70-99 [facility] Comment on above: Order Comment: Call MD with results STAT Performed By: #### L 500.2500 ####[facility] [address] [place], [address] Potassium [Moles/Vol] 3.2 mmol/L Low 3.3-5.1 [facility] Comment on above: Order Comment: Call MD with results STAT Performed By: #### L 500.2500 ####[facility] [address] [place], [address] Sodium [Moles/Vol] 139 mmol/L Normal 133-145 [facility] Comment on above: Order Comment: Call MD with results STAT Performed By: #### L 500.2500 ####[facility] [address] [place], [address] Urea nitrogen [Mass/Vol] 8 mg/dL Normal 4-19 [facility] Comment on above: Order Comment: Call MD with results STAT Performed By: #### L 500.2500 ####[facility] [address] [place], [address] BUN/CRE 14.4 RATIO Normal 10-20 [facility] Comment on above: Order Comment: Call MD with results STAT Performed By: #### L 500.2500 ####[facility] [address] [place], [address] Calcium [Mass/Vol] 7.5 mg/dL Low 7.6-11.0 [facility] Comment on above: Order Comment: Call MD with results STAT Performed By: #### L 500.2500 ####[facility] [address] [place], [address] Chloride [Moles/Vol] 112 mmol/L High 98-108 [facility] Comment on above: Order Comment: Call MD with results STAT Performed By: #### L 500.2500 ####[facility] [address] [place], [address] CO2 [Moles/Vol] 13.6 mmol/L Low 21.0-32.0 [facility] Comment on above: Order Comment: Call MD with results STAT Performed By: #### L 500.2500 ####[facility] [address] [place], [address] Creatinine [Mass/Vol] 0.69 mg/dL Low 0.70-1.20 [facility] Comment on above: Order Comment: Call MD with results STAT Performed By: #### L 500.2500 ####[facility] [address] [place], [address] ECRCL 120.26 ml/min Normal 50-250 [facility] Comment on above: Order Comment: Call MD with results STAT Performed By: #### L 500.2500 ####[facility] [address] [place], [address] GAP 13 Normal 5-15 [facility] Comment on above: Order Comment: Call MD with results STAT Performed By: #### L 500.2500 ####[facility] [address] [place], [address] GFR/1.73 sq M.predicted among non-blacks MDRD (S/P/Bld) [Vol rate/Area] 120 mL/min/{1.73_m2} Normal >60 [facility] Comment on above: Order Comment: Call MD with results STAT Result Comment: mL/m in/1.73m2 CKD-EPI Creatinine Equation (2020) Performed By: #### L 500.2500 ####[facility] [address] [place], [address] Glucose [Mass/Vol] 139 mg/dL High 70-99 [facility] Comment on above: Order Comment: Call MD with results STAT Performed By: #### L 500.2500 ####[facility] [address] [place], [address] Potassium [Moles/Vol] 3.4 mmol/L Normal 3.3-5.1 [facility] Comment on above: Order Comment: Call MD with results STAT Performed By: #### L 500.2500 ####[facility] [address] [place], [address] Sodium [Moles/Vol] 139 mmol/L Normal 133-145 [facility] Comment on above: Order Comment: Call MD with results STAT Performed By: #### L 500.2500 ####[facility] [address] [place], [address] Urea nitrogen [Mass/Vol] 10 mg/dL Normal 4-19 [facility] Comment on above: Order Comment: Call MD with results STAT Performed By: #### L 500.2500 ####[facility] [address] [place], [address] BUN/CRE 16.3 RATIO Normal 10-20 [facility] Comment on above: Order Comment: Call MD with results STAT Performed By: #### L 500.2500 ####[facility] [address] [place], [address] Calcium [Mass/Vol] 7.6 mg/dL Normal 7.6-11.0 [facility] Comment on above: Order Comment: Call MD with results STAT Performed By: #### L 500.2500 ####[facility] [address] [place], [address] Chloride [Moles/Vol] 110 mmol/L High 98-108 [facility] Comment on above: Order Comment: Call MD with results STAT Performed By: #### L 500.2500 ####[facility] [address] [place], [address] CO2 [Moles/Vol] 12.5 mmol/L Low 21.0-32.0 [facility] Comment on above: Order Comment: Call MD with results STAT Performed By: #### L 500.2500 ####[facility] [address] [place], [address] Creatinine [Mass/Vol] 0.72 mg/dL Normal 0.70-1.20 [facility] Comment on above: Order Comment: Call MD with results STAT Performed By: #### L 500.2500 ####[facility] [address] [place], [address] ECRCL 115.25 ml/min Normal 50-250 [facility] Comment on above: Order Comment: Call MD with results STAT Performed By: #### L 500.2500 ####[facility] [address] [place], [address] GAP 16 High 5-15 [facility] Comment on above: Order Comment: Call MD with results STAT Performed By: #### L 500.2500 ####[facility] [address] [place], [address] GFR/1.73 sq M.predicted among non-blacks MDRD (S/P/Bld) [Vol rate/Area] 115 mL/min/{1.73_m2} Normal >60 [facility] Comment on above: Order Comment: Call MD with results STAT Result Comment: mL/m in/1.73m2 CKD-EPI Creatinine Equation (2020) Performed By: #### L 500.2500 ####[facility] [address] [place], [address] Glucose [Mass/Vol] 176 mg/dL High 70-99 [facility] Comment on above: Order Comment: Call MD with results STAT Performed By: #### L 500.2500 ####[facility] [address] [place], [address] Potassium [Moles/Vol] 3.7 mmol/L Normal 3.3-5.1 [facility] Comment on above: Order Comment: Call MD with results STAT Performed By: #### L 500.2500 ####[facility] [address] [place], [address] Sodium [Moles/Vol] 138 mmol/L Normal 133-145 [facility] Comment on above: Order Comment: Call MD with results STAT Performed By: #### L 500.2500 ####[facility] [address] [place], [address] Urea nitrogen [Mass/Vol] 12 mg/dL Normal 4-19 [facility] Comment on above: Order Comment: Call MD with results STAT Performed By: #### L 500.2500 ####[facility] [address] [place], [address] BUN/CRE 16.2 RATIO Normal 10-20 [facility] Comment on above: Order Comment: Call MD with results STAT Performed By: #### L 500.2500 ####[facility] [address] [place], [address] Calcium [Mass/Vol] 7.6 mg/dL Normal 7.6-11.0 [facility] Comment on above: Order Comment: Call MD with results STAT Performed By: #### L 500.2500 ####[facility] [address] [place], [address] Chloride [Moles/Vol] 111 mmol/L High 98-108 [facility] Comment on above: Order Comment: Call MD with results STAT Performed By: #### L 500.2500 ####[facility] [address] [place], [address] CO2 [Moles/Vol] 11.0 mmol/L Low 21.0-32.0 [facility] Comment on above: Order Comment: Call MD with results STAT Performed By: #### L 500.2500 ####[facility] [address] [place], [address] Creatinine [Mass/Vol] 0.81 mg/dL Normal 0.70-1.20 [facility] Comment on above: Order Comment: Call MD with results STAT Performed By: #### L 500.2500 ####[facility] [address] [place], [address] ECRCL 102.45 ml/min Normal 50-250 [facility] Comment on above: Order Comment: Call MD with results STAT Performed By: #### L 500.2500 ####[facility] [address] [place], [address] GAP 18 High 5-15 [facility] Comment on above: Order Comment: Call MD with results STAT Performed By: #### L 500.2500 ####[facility] [address] [place], [address] GFR/1.73 sq M.predicted among non-blacks MDRD (S/P/Bld) [Vol rate/Area] 100 mL/min/{1.73_m2} Normal >60 [facility] Comment on above: Order Comment: Call MD with results STAT Result Comment: mL/m in/1.73m2 CKD-EPI Creatinine Equation (2020) Performed By: #### L 500.2500 ####[facility] [address] [place], [address] Glucose [Mass/Vol] 209 mg/dL High 70-99 [facility] Comment on above: Order Comment: Call MD with results STAT Performed By: #### L 500.2500 ####[facility] [address] [place], [address] Potassium [Moles/Vol] 4.5 mmol/L Normal 3.3-5.1 [facility] Comment on above: Order Comment: Call MD with results STAT Result Comment: Hemo lysis present, Results??could be affected.?? Performed By: #### L 500.2500 ####[facility] [address] [place], [address] Sodium [Moles/Vol] 140 mmol/L Normal 133-145 [facility] Comment on above: Order Comment: Call MD with results STAT Performed By: #### L 500.2500 ####[facility] [address] [place], [address] Urea nitrogen [Mass/Vol] 13 mg/dL Normal 4-19 [facility] Comment on above: Order Comment: Call MD with results STAT Performed By: #### L 500.2500 ####[facility] [address] [place], [address] BUN/CRE 21.2 RATIO High 10-20 [facility] Comment on above: Order Comment: Call MD with results STAT Performed By: #### L 500.2500 ####[facility] [address] [place], [address] Calcium [Mass/Vol] 8.4 mg/dL Normal 7.6-11.0 [facility] Comment on above: Order Comment: Call MD with results STAT Performed By: #### L 500.2500 ####[facility] [address] [place], [address] Chloride [Moles/Vol] 102 mmol/L Normal 98-108 [facility] Comment on above: Order Comment: Call MD with results STAT Performed By: #### L 500.2500 ####[facility] [address] [place], [address] CO2 [Moles/Vol] 7.2 mmol/L Invalid Interpretation Code 21.0-32.0 [facility] Comment on above: Order Comment: Call MD with results STAT Result Comment: Crit ical Result(s) Called at: by:??Results read back bysame.Critical Result(s) Called at:0104 by: ROSLYN HAVEN TO LINDAFORREST??Results read back by same. Performed By: #### L 500.2500 ####[facility] [address] [place], [address] Creatinine [Mass/Vol] 1.01 mg/dL Normal 0.70-1.20 [facility] Comment on above: Order Comment: Call MD with results STAT Performed By: #### L 500.2500 ####[facility] [address] [place], [address] ECRCL 82.16 ml/min Normal 50-250 [facility] Comment on above: Order Comment: Call MD with results STAT Performed By: #### L 500.2500 ####[facility] [address] [place], [address] GAP 26 High 5-15 [facility] Comment on above: Order Comment: Call MD with results STAT Performed By: #### L 500.2500 ####[facility] [address] [place], [address] GFR/1.73 sq M.predicted among non-blacks MDRD (S/P/Bld) [Vol rate/Area] 77 mL/min/{1.73_m2} Normal >60 [facility] Comment on above: Order Comment: Call MD with results STAT Result Comment: mL/m in/1.73m2 CKD-EPI Creatinine Equation (2020) Performed By: #### L 500.2500 ####[facility] [address] [place], [address] Glucose [Mass/Vol] 330 mg/dL High 70-99 [facility] Comment on above: Order Comment: Call MD with results STAT Performed By: #### L 500.2500 ####[facility] [address] [place], [address] Potassium [Moles/Vol] 4.4 mmol/L Normal 3.3-5.1 [facility] Comment on above: Order Comment: Call MD with results STAT Result Comment: Hemo lysis present, Results??could be affected.?? Performed By: #### L 500.2500 ####[facility] [address] [place], [address] Sodium [Moles/Vol] 135 mmol/L Normal 133-145 [facility] Comment on above: Order Comment: Call MD with results STAT Performed By: #### L 500.2500 ####[facility] [address] [place], [address] Urea nitrogen [Mass/Vol] 21 mg/dL High 4-19 [facility] Comment on above: Order Comment: Call MD with results STAT Performed By: #### L 500.2500 ####[facility] [address] [place], [address] Bedside Glucoseon 01-23-2025 FINGERSTICK GLU 150 mg/dL High 74-106 [facility] Comment on above: Result Comment: EDGAR GEMENT OF PATIENT CARE PER NURSING PROTOCOL Performed By: #### L 501.080 ####[facility] [address] [place], [address] FINGERSTICK GLU 170 mg/dL High 74-106 [facility] Comment on above: Result Comment: EDGAR GEMENT OF PATIENT CARE PER NURSING PROTOCOL Performed By: #### L 501.080 ####[facility] [address] [place], [address] FINGERSTICK GLU 134 mg/dL High 74-106 [facility] Comment on above: Result Comment: EDGAR GEMENT OF PATIENT CARE PER NURSING PROTOCOL Performed By: #### L 501.080 ####[facility] [address] [place], [address] FINGERSTICK GLU 134 mg/dL High 74-106 [facility] Comment on above: Result Comment: EDGAR GEMENT OF PATIENT CARE PER NURSING PROTOCOL Performed By: #### L 501.080 ####[facility] [address] [place], [address] FINGERSTICK GLU 145 mg/dL High 74-106 [facility] Comment on above: Result Comment: EDGAR GEMENT OF PATIENT CARE PER NURSING PROTOCOL Performed By: #### L 501.080 ####[facility] [address] [place], [address] FINGERSTICK GLU 136 mg/dL High 74-106 [facility] Comment on above: Result Comment: EDGAR GEMENT OF PATIENT CARE PER NURSING PROTOCOL Performed By: #### L 501.080 ####[facility] [address] [place], [address] FINGERSTICK GLU 128 mg/dL High 74-106 [facility] Comment on above: Result Comment: EDGAR GEMENT OF PATIENT CARE PER NURSING PROTOCOL Performed By: #### L 501.080 ####[facility] [address] [place], [address] FINGERSTICK GLU 127 mg/dL High 74-106 [facility] Comment on above: Result Comment: EDGAR GEMENT OF PATIENT CARE PER NURSING PROTOCOL Performed By: #### L 501.080 ####[facility] [address] [place], [address] FINGERSTICK GLU 120 mg/dL High 74-106 [facility] Comment on above: Result Comment: EDGAR GEMENT OF PATIENT CARE PER NURSING PROTOCOL Performed By: #### L 501.080 ####[facility] [address] [place], [address] FINGERSTICK GLU 127 mg/dL High 74-106 [facility] Comment on above: Result Comment: EDGAR GEMENT OF PATIENT CARE PER NURSING PROTOCOL Performed By: #### L 501.080 ####[facility] [address] [place], [address] FINGERSTICK GLU 176 mg/dL High 74-106 [facility] Comment on above: Result Comment: EDGAR GEMENT OF PATIENT CARE PER NURSING PROTOCOL Performed By: #### L 501.080 ####[facility] [address] [place], [address] FINGERSTICK GLU 156 mg/dL High 74-106 [facility] Comment on above: Result Comment: EDGAR GEMENT OF PATIENT CARE PER NURSING PROTOCOL Performed By: #### L 501.080 ####[facility] [address] [facility] [address] FINGERSTICK GLU 177 mg/dL High 74-106 [facility] Comment on above: Result Comment: EDGAR GEMENT OF PATIENT CARE PER NURSING PROTOCOL Performed By: #### L 501.080 ####[facility] [address] [facility] [address] FINGERSTICK GLU 200 mg/dL High 74-106 [facility] Comment on above: Result Comment: EDGAR GEMENT OF PATIENT CARE PER NURSING PROTOCOL Performed By: #### L 501.080 ####[facility] [address] [place], [address] FINGERSTICK GLU 214 mg/dL High 74-106 [facility] Comment on above: Result Comment: EDGAR GEMENT OF PATIENT CARE PER NURSING PROTOCOL Performed By: #### L 501.080 ####[facility] [address] [facility] [address] FINGERSTICK GLU 203 mg/dL High -106 [facility] Comment on above: Result Comment: EDGAR GEMENT OF PATIENT CARE PER NURSING PROTOCOL Performed By: #### L 501.080 ####[facility] [address] [facility] [address] FINGERSTICK GLU 217 mg/dL High 74-106 [facility] Comment on above: Result Comment: EDGAR GEMENT OF PATIENT CARE PER NURSING PROTOCOL Performed By: #### L 501.080 ####[facility] [address] [place], [address] FINGERSTICK GLU 230 mg/dL High [address] [place] [address] Comment on above: Result Comment: EDGAR GEMENT OF PATIENT CARE PER NURSING PROTOCOL Performed By: #### L 501.080 ####[facility] [address] [place], [address] FINGERSTICK GLU 258 mg/dL High [address] [place] [address] Comment on above: Result Comment: EDGAR GEMENT OF PATIENT CARE PER NURSING PROTOCOL Performed By: #### L 501.080 ####[facility] [address] [place], [address] FINGERSTICK GLU 269 mg/dL High [address] [place] [address] Comment on above: Result Comment: EDGAR GEMENT OF PATIENT CARE PER NURSING PROTOCOL Performed By: #### L 501.080 ####[facility] [address] [place], [address] FINGERSTICK GLU 253 mg/dL High [address] [place] [address] Comment on above: Result Comment: EDGAR GEMENT OF PATIENT CARE PER NURSING PROTOCOL Performed By: #### L 501.080 ####[facility] [address] [place], [address] FINGERSTICK GLU 286 mg/dL High [address] [place] [address] Comment on above: Result Comment: EDGAR GEMENT OF PATIENT CARE PER NURSING PROTOCOL Performed By: #### L 501.080 ####[facility] [address] [place], [address] CBC W/Diff, Automatedon - SMEAR COMMENT SCANNED Normal [facility] Comment on above: Performed By: #### L 100.0100 ####[facility] [address] [place], [address] Basic Metabolic Profile (BMP )on 01-22-2025 BUN/CRE 21.4 RATIO High 10-20 [facility] Comment on above: Performed By: #### L 500.2500, L501.2450, L500.3400, L700.6800, L100.0100 ####[facility] [address] [place], [address] Calcium [Mass/Vol] 9.4 mg/dL Normal 7.6-11.0 [facility] Comment on above: Performed By: #### L 500.2500, L501.2450, L500.3400, L700.6800, L100.0100 ####[facility] [address] [place], [address] Chloride [Moles/Vol] 92 mmol/L Low 98-108 [facility] Comment on above: Performed By: #### L 500.2500, L501.2450, L500.3400, L700.6800, L100.0100 ####[facility] [address] [place], [address] CO2 [Moles/Vol] 6.3 mmol/L Invalid Interpretation Code 21.0-32.0 [facility] Comment on above: Result Comment: Crit ical Result(s) Called at: by:??Results [facility] [place].Critical Result(s) Called at: 2055 by: ROSLYN AYERS??Results read back by same. Performed By: #### L 500.2500, L501.2450, L500.3400, L700.6800, L100.0100 ####[facility] [address] [place], [address] Creatinine [Mass/Vol] 1.10 mg/dL Normal 0.70-1.20 [facility] Comment on above: Performed By: #### L 500.2500, L501.2450, L500.3400, L700.6800, L100.0100 ####[facility] [address] [place], [address] GAP 32 High 5-15 [facility] Comment on above: Performed By: #### L 500.2500, L501.2450, L500.3400, L700.6800, L100.0100 ####[facility] [address] [place], [address] GFR/1.73 sq M.predicted among non-blacks MDRD (S/P/Bld) [Vol rate/Area] 69 mL/min/{1.73_m2} Normal >60 [facility] Comment on above: Result Comment: mL/m in/1.73m2 CKD-EPI Creatinine Equation (2020) Performed By: #### L 500.2500, L501.2450, L500.3400, L700.6800, L100.0100 ####[facility] [address] [place], [address] Glucose [Mass/Vol] 507 mg/dL Invalid Interpretation Code 70-99 [facility] Comment on above: Result Comment: Crit ical Result(s) Called at: by:??Results read back bysame.Critical Result(s) Called at: 2055 by: ROSLYN AYERS??Results read back by same.Critical Result(s) Called at: by:??Results read back bysame. Performed By: #### L 500.2500, L501.2450, L500.3400, L700.6800, L100.0100 ####[facility] [address] [place], [address] Potassium [Moles/Vol] 4.7 mmol/L Normal 3.3-5.1 [facility] Comment on above: Performed By: #### L 500.2500, L501.2450, L500.3400, L700.6800, L100.0100 ####[facility] [address] [place], [address] Sodium [Moles/Vol] 130 mmol/L Low 133-145 [facility] Comment on above: Performed By: #### L 500.2500, L501.2450, L500.3400, L700.6800, L100.0100 ####[facility] [address] [place], [address] Urea nitrogen [Mass/Vol] 24 mg/dL High 4-19 [facility] Comment on above: Performed By: #### L 500.2500, L501.2450, L500.3400, L700.6800, L100.0100 ####[facility] [address] [place], [address] Bedside Glucoseon 01-22-2025 FINGERSTICK GLU 369 mg/dL High 74-106 [facility] Comment on above: Result Comment: EDGAR GEMENT OF PATIENT CARE PER NURSING PROTOCOL Performed By: #### L 501.080 ####[facility] [address] [place], [address] FINGERSTICK GLU > 500 Invalid Interpretation Code 74-106 [facility] Comment on above: Result Comment: Insu bill GivenMANAGEMENT OF PATIENT CARE PER NURSING PROTOCOL Performed By: #### L 501.080 ####[facility] [address] [place], [address] FINGERSTICK GLU 492 mg/dL Invalid Interpretation Code 74-106 [facility] Comment on above: Result Comment: Dr Ej foreman FollowedMANAGEMENT OF PATIENT CARE PER NURSING PROTOCOL Performed By: #### L 501.080 ####[facility] [address] [place], [address] Beta-Hydroxbytyrateon 2024 BETA-HYDROXYBUT 6.8 mmol/L Normal 0.0-0.3 [facility] Comment on above: Performed By: #### L 501.6901 ####[facility] [address] [place], [address] CBC W/Diff, Automatedon 05-2 PLT EST SLT DEC Normal ADEQ [facility] Comment on above: Performed By: #### L 500.2500, L501.2450, L500.3400, L700.6800, L100.0100 ####[facility] [address] [place], [address] SMEAR COMMENT SCANNED Normal [facility] Comment on above: Performed By: #### L 500.2500, L501.2450, L500.3400, L700.6800, L100.0100 ####[facility] [address] [place], [address] Emergency Department Summary on 01-22-2025 Emergency Department Summary Normal [facility] H AND P Exam - Hospitaliston 01-22-2025 H&P Exam - Hospitalist Normal [facility] Lipaseon 01-22-2025 Lipase [Catalytic activity/Vol] 11 U/L Low 13-75 [facility] Comment on above: Result Comment: Sulma schmitz note:LIPASE revised reference range effective 22.New Lipase methodology. Expected to produce lower valuesthan the previous assay method.NEW Reference Range: 13 - 75 U/L Performed By: #### L 500.2500, L501.2450, L500.3400, L700.6800, L100.0100 ####[facility] [address] [place], [address] Liver Profileon 01-22-2025 Albumin [Mass/Vol] 4.6 g/dL Normal 3.5-5.0 [facility] Comment on above: Performed By: #### L 500.2500, L501.2450, L500.3400, L700.6800, L100.0100 ####[facility] [address] [place], [address] ALK PHOS 109 U/L High 35-104 [facility] Comment on above: Performed By: #### L 500.2500, L501.2450, L500.3400, L700.6800, L100.0100 ####[facility] [address] [place], [address] ALT [Catalytic activity/Vol] 11 U/L Normal <=34 [facility] Comment on above: Performed By: #### L 500.2500, L501.2450, L500.3400, L700.6800, L100.0100 ####[facility] [address] [place], [address] AST [Catalytic activity/Vol] 16 U/L Normal <=31 [facility] Comment on above: Performed By: #### L 500.2500, L501.2450, L500.3400, L700.6800, L100.0100 ####[facility] [address] [place], [address] Bilirubin [Mass/Vol] 0.96 mg/dL Normal 0.00-1.30 [facility] Comment on above: Performed By: #### L 500.2500, L501.2450, L500.3400, L700.6800, L100.0100 ####[facility] [address] [place], [address] Bilirubin.direct [Mass/Vol] 0.40 mg/dL High 0.00-0.30 [facility] Comment on above: Performed By: #### L 500.2500, L501.2450, L500.3400, L700.6800, L100.0100 ####[facility] [address] [place], [address] Globulin (S) [Mass/Vol] 3.3 g/dL Normal 2.2-4.2 [facility] Comment on above: Performed By: #### L 500.2500, L501.2450, L500.3400, L700.6800, L100.0100 ####[facility] [address] [place], [address] T PROT 7.9 g/dL Normal 5.9-8.4 [facility] Comment on above: Performed By: #### L 500.2500, L501.2450, L500.3400, L700.6800, L100.0100 ####[facility] [address] [place], [address] ,Serum,hCG Quali.on 01-22-2025 HCG, SERUM QUAL Negative Normal [facility] Comment on above: Performed By: #### L 500.2500, L501.2450, L500.3400, L700.6800, L100.0100 ####[facility] [address] [place], [address] Urinalysis, Completeon 01-22 WBC 0-5 SEEN Normal 0-5 [facility] Comment on above: Order Comment: CRITI CRISTINA VALUE CALLED TO ZION [facility]01/22/252058 Nguyen Lollo.RESULTS READ BACK BY SAME.CLEAN CATCH Performed By: #### L 400.0001 ####[facility] [address] [place], [address] RBC 0-5 SEEN Normal 0-5 [facility] Comment on above: Order Comment: CRITI CRISTINA VALUE CALLED TO ZION TEA01/22/252058 Nguyen Lollo.RESULTS READ BACK BY SAME.CLEAN CATCH Performed By: #### L 400.0001 ####[facility] [address] [place], [address] BACTERIA 1+ /hpf Normal None Seen [facility] Comment on above: Order Comment: CRITI CRISTINA VALUE CALLED TO ZION TEAL01/22/252058 Nguyen Lollo.RESULTS READ BACK BY SAME.CLEAN CATCH Performed By: #### L 400.0001 ####[facility] [address] [place], [address] EPI,SQUAMOUS 0-5 SEEN Normal 5-10 [facility] Comment on above: Order Comment: CRITI CRISTINA VALUE CALLED TO ZION GUIDO01/22/252058 Nguyen Lollo.RESULTS READ BACK BY SAME.CLEAN CATCH Performed By: #### L 400.0001 ####[facility] [address] [place], [address] Mucus Ql (Urine sed) 0 SEEN Normal [facility] Comment on above: Order Comment: CRITI CRISTINA VALUE CALLED TO ZION GUIDO01/22/252058 Nguyen Lollo.RESULTS READ BACK BY SAME.CLEAN CATCH Performed By: #### L 400.0001 ####[facility] [address] [place], [address] Venous Blood Gason 5 Blood Gas Type ISABELLE [facility] Comment on above: Performed By: #### L 9000.0810 ####[facility] [address] [place], [address] CO2 [Moles/Vol] 8 mmol/L Low 23-33 [facility] Comment on above: Performed By: #### L 9000.0810 ####[facility] [address] [place], [address] HCO3 (Bld) [Moles/Vol] 8 mmol/L Low 22-26 [facility] Comment on above: Performed By: #### L 9000.0810 ####[facility] [address] [place], [address] O2 Delivery Dev Not entered [facility] Comment on above: Performed By: #### L 9000.0810 ####[facility] [address] [place], [address] Read Back By Yes [facility] Comment on above: Performed By: #### L 9000.0810 ####[facility] [address] [place], [address] SITE Not entered Normal [facility] Comment on above: Performed By: #### L 9000.0810 ####[facility] [address] [place], [address] VBG BE -21 mmol/L Low -1.0-3.5 [facility] Comment on above: Performed By: #### L 9000.0810 ####[facility] [address] [place], [address] VBG pCO2 20.8 mmHg Low 41-51 [facility] Comment on above: Performed By: #### L 9000.0810 ####[facility] [address] [place], [address] VBG pH 7.17 Invalid Interpretation Code 7.32-7.42 [facility] Comment on above: Performed By: #### L 9000.0810 ####[facility] [address] [place], [address] VBG PO2 48 mmHg High 25-40 [facility] Comment on above: Performed By: #### L 9000.0810 ####[facility] [address] [place], [address] VBG SO2 74 High 50-70 [facility] Comment on above: Performed By: #### L 9000.0810 ####[facility] [address] [place], [address] Abdomen Single Viewon 2024 Abdomen Single View Normal [facility] Gastroenterology Visit Repor ton 01-08-2025 Gastroenterology Visit Report Normal [facility] CBC W/Diff, Automatedon -3 Absolute Lymph 1.70 X10 3/uL Normal 0.83-4.51 [facility] Comment on above: Performed By: #### L 501.2300, L100.0100, L500.4050 ####[facility] [address] [place], [address] Absolute Neut 7.3 X10 3/uL Normal 2.0-7.7 [facility] Comment on above: Performed By: #### L 501.2300, L100.0100, L500.4050 ####[facility] [address] [place], [address] Basophils/100 WBC (Bld) 0.5 % Normal 0-1 [facility] Comment on above: Performed By: #### L 501.2300, L100.0100, L500.4050 ####[facility] [address] [place], [address] Eosinophils/100 WBC (Bld) 0.6 % Normal 0-5 [facility] Comment on above: Performed By: #### L 501.2300, L100.0100, L500.4050 ####[facility] [address] [place], [address] Erythrocyte distribution width (RBC) [Ratio] 13.1 % Normal 11.6-14.6 [facility] Comment on above: Performed By: #### L 501.2300, L100.0100, L500.4050 ####[facility] [address] [place], [address] Hematocrit (Bld) [Volume fraction] 42.8 % Normal 37-47 [facility] Comment on above: Performed By: #### L 501.2300, L100.0100, L500.4050 ####[facility] [address] [place], [address] Hemoglobin (Bld) [Mass/Vol] 14.5 g/dL Normal 12.0-15.0 [facility] Comment on above: Performed By: #### L 501.2300, L100.0100, L500.4050 ####[facility] [address] [place], [address] IG% 0.900 Normal 0.0-0.9 [facility] Comment on above: Result Comment: IG% - Immature Granulocytes (promyelocytes, myelocytes andmetamyelocytes) > 1% indicates that a LEFT SHIFT is Present. Performed By: #### L 501.2300, L100.0100, L500.4050 ####[facility] [address] [place], [address] Lymphocytes/100 WBC (Bld) 17.6 % Low 19-41 [facility] Comment on above: Performed By: #### L 501.2300, L100.0100, L500.4050 ####[facility] [address] [place], [address] MCH (RBC) [Entitic mass] 29.5 pg Normal 27.0-32.0 [facility] Comment on above: Performed By: #### L 501.2300, L100.0100, L500.4050 ####[facility] [address] [place], [address] MCHC (RBC) [Mass/Vol] 33.9 g/dL Normal 32-36 [facility] Comment on above: Performed By: #### L 501.2300, L100.0100, L500.4050 ####[facility] [address] [place], [address] MCV (RBC) [Entitic vol] 87.2 fL Normal 81-99 [facility] Comment on above: Performed By: #### L 501.2300, L100.0100, L500.4050 ####[facility] [address] [place], [address] Monocytes/100 WBC (Bld) 5.3 % Normal 0-10 [facility] Comment on above: Performed By: #### L 501.2300, L100.0100, L500.4050 ####[facility] [address] [place], [address] Neutrophils/100 WBC (Bld) 75.1 % High 47-70 [facility] Comment on above: Performed By: #### L 501.2300, L100.0100, L500.4050 ####[facility] [address] [place], [address] Nucleated RBC (Bld) [#/Vol] 0 10*3/uL Normal 0-5 [facility] Comment on above: Performed By: #### L 501.2300, L100.0100, L500.4050 ####[facility] [address] [place], [address] Platelet mean volume (Bld) [Entitic vol] 12.4 fL High 6.2-12.0 [facility] Comment on above: Performed By: #### L 501.2300, L100.0100, L500.4050 ####[facility] [address] [place], [address] Platelets (Bld) [#/Vol] 149 10*3/uL Low 150-450 [facility] Comment on above: Performed By: #### L 501.2300, L100.0100, L500.4050 ####[facility] [address] [place], [address] RBC (Bld) [#/Vol] 4.91 10*6/uL Normal 4.2-5.4 [facility] Comment on above: Performed By: #### L 501.2300, L100.0100, L500.4050 ####[facility] [address] [place], [address] RDW SD 41.7 fl Normal 35.1-43.9 [facility] Comment on above: Performed By: #### L 501.2300, L100.0100, L500.4050 ####[facility] [address] [place], [address] WBC (Bld) [#/Vol] 9.7 10*3/uL Normal 4.4-11.0 [facility] Comment on above: Performed By: #### L 501.2300, L100.0100, L500.4050 ####[facility] [address] [place], [address] Comprehensive Metabolic Prof [facility] 12-25-2024 Albumin [Mass/Vol] 4.3 g/dL Normal 3.5-5.0 [facility] Comment on above: Performed By: #### L 501.2300, L100.0100, L500.4050 ####[facility] [address] [place], [address] Albumin/Globulin [Mass ratio] 1.6 {ratio} Normal 0.9-2.4 [facility] Comment on above: Performed By: #### L 501.2300, L100.0100, L500.4050 ####[facility] [address] [place], [address] ALK PHOS 78 U/L Normal 35-104 [facility] Comment on above: Performed By: #### L 501.2300, L100.0100, L500.4050 ####[facility] [address] [place], [address] ALT [Catalytic activity/Vol] 9 U/L Normal <=34 [facility] Comment on above: Performed By: #### L 501.2300, L100.0100, L500.4050 ####[facility] [address] [place], [address] AST [Catalytic activity/Vol] 14 U/L Normal <=31 [facility] Comment on above: Performed By: #### L 501.2300, L100.0100, L500.4050 ####[facility] [address] [place], [address] Bilirubin [Mass/Vol] 0.56 mg/dL Normal 0.00-1.30 [facility] Comment on above: Performed By: #### L 501.2300, L100.0100, L500.4050 ####[facility] [address] [place], [address] BUN/CRE 14.6 RATIO Normal 10-20 [facility] Comment on above: Performed By: #### L 501.2300, L100.0100, L500.4050 ####[facility] [address] [place], [address] Calcium [Mass/Vol] 9.3 mg/dL Normal 7.6-11.0 [facility] Comment on above: Performed By: #### L 501.2300, L100.0100, L500.4050 ####[facility] [address] [place], [address] Chloride [Moles/Vol] 100 mmol/L Normal 98-108 [facility] Comment on above: Performed By: #### L 501.2300, L100.0100, L500.4050 ####[facility] [address] [place], [address] CO2 [Moles/Vol] 19.3 mmol/L Low 21.0-32.0 [facility] Comment on above: Performed By: #### L 501.2300, L100.0100, L500.4050 ####[facility] [address] [place], [address] Creatinine [Mass/Vol] 0.75 mg/dL Normal 0.70-1.20 [facility] Comment on above: Performed By: #### L 501.2300, L100.0100, L500.4050 ####[facility] [address] [place], [address] GAP 13 Normal 5-15 [facility] Comment on above: Performed By: #### L 501.2300, L100.0100, L500.4050 ####[facility] [address] [place], [address] GFR/1.73 sq M.predicted among non-blacks MDRD (S/P/Bld) [Vol rate/Area] 110 mL/min/{1.73_m2} Normal >60 [facility] Comment on above: Result Comment: mL/m in/1.73m2 CKD-EPI Creatinine Equation (2020) Performed By: #### L 501.2300, L100.0100, L500.4050 ####[facility] [address] [place], [address] Globulin (S) [Mass/Vol] 2.7 g/dL Normal 2.2-4.2 [facility] Comment on above: Performed By: #### L 501.2300, L100.0100, L500.4050 ####[facility] [address] [place], [address] Glucose [Mass/Vol] 443 mg/dL High 70-99 [facility] Comment on above: Performed By: #### L 501.2300, L100.0100, L500.4050 ####[facility] [address] [place], [address] Potassium [Moles/Vol] 4.5 mmol/L Normal 3.3-5.1 [facility] Comment on above: Performed By: #### L 501.2300, L100.0100, L500.4050 ####[facility] [address] [place], [address] Sodium [Moles/Vol] 133 mmol/L Normal 133-145 [facility] Comment on above: Performed By: #### L 501.2300, L100.0100, L500.4050 ####[facility] [address] [place], [address] T PROT 7.0 g/dL Normal 5.9-8.4 [facility] Comment on above: Performed By: #### L 501.2300, L100.0100, L500.4050 ####[facility] [address] [place], [address] Urea nitrogen [Mass/Vol] 11 mg/dL Normal 4-19 [facility] Comment on above: Performed By: #### L 501.2300, L100.0100, L500.4050 ####[facility] [address] [place], [address] Phosphoruson 12-25-2024 Phosphate [Mass/Vol] 2.9 mg/dL Normal 2.7-4.5 [facility] Comment on above: Performed By: #### L 501.2300, L100.0100, L500.4050 ####[facility] [address] [place], [address] Basic Metabolic Profile (BMP )on 12-16-2024 BUN/CRE 10.1 RATIO Normal 10-20 [facility] Comment on above: Performed By: #### L 100.0100, L500.2500 ####[facility] [address] [place], [address] Calcium [Mass/Vol] 8.4 mg/dL Normal 7.6-11.0 [facility] Comment on above: Performed By: #### L 100.0100, L500.2500 ####[facility] [address] [place], [address] Chloride [Moles/Vol] 107 mmol/L Normal 98-108 [facility] Comment on above: Performed By: #### L 100.0100, L500.2500 ####[facility] [address] [place], [address] CO2 [Moles/Vol] 19.2 mmol/L Low 21.0-32.0 [facility] Comment on above: Performed By: #### L 100.0100, L500.2500 ####[facility] [address] [place], [address] Creatinine [Mass/Vol] 0.68 mg/dL Low 0.70-1.20 [facility] Comment on above: Performed By: #### L 100.0100, L500.2500 ####[facility] [address] [place], [address] ECRCL 126.42 ml/min Normal 50-250 [facility] Comment on above: Performed By: #### L 100.0100, L500.2500 ####[facility] [address] [place], [address] GAP 11 Normal 5-15 [facility] Comment on above: Performed By: #### L 100.0100, L500.2500 ####[facility] [address] [place], [address] GFR/1.73 sq M.predicted among non-blacks MDRD (S/P/Bld) [Vol rate/Area] 120 mL/min/{1.73_m2} Normal >60 [facility] Comment on above: Result Comment: mL/m in/1.73m2 CKD-EPI Creatinine Equation (2020) Performed By: #### L 100.0100, L500.2500 ####[facility] [address] [place], [address] Glucose [Mass/Vol] 203 mg/dL High 70-99 [facility] Comment on above: Performed By: #### L 100.0100, L500.2500 ####[facility] [address] [place], [address] Potassium [Moles/Vol] 4.4 mmol/L Normal 3.3-5.1 [facility] Comment on above: Result Comment: Hemo lysis present, Results??could be affected.?? Performed By: #### L 100.0100, L500.2500 ####[facility] [address] [place], [address] Sodium [Moles/Vol] 137 mmol/L Normal 133-145 [facility] Comment on above: Performed By: #### L 100.0100, L500.2500 ####[facility] [address] [place], [address] Urea nitrogen [Mass/Vol] 7 mg/dL Normal 4-19 [facility] Comment on above: Performed By: #### L 100.0100, L500.2500 ####[facility] [address] [place], [address] Bedside Glucoseon 12-16-2024 FINGERSTICK GLU 214 mg/dL High 74-106 [facility] Comment on above: Result Comment: EDGAR GEMENT OF PATIENT CARE PER NURSING PROTOCOL Performed By: #### L 501.080 ####[facility] [address] [place], [address] FINGERSTICK GLU 227 mg/dL High 74-106 [facility] Comment on above: Result Comment: EDGAR GEMENT OF PATIENT CARE PER NURSING PROTOCOL Performed By: #### L 501.080 ####[facility] [address] [place], [address] FINGERSTICK GLU 180 mg/dL High 74-106 [facility] Comment on above: Result Comment: EDGAR GEMENT OF PATIENT CARE PER NURSING PROTOCOL Performed By: #### L 501.080 ####[facility] [address] [place], [address] CBC W/Diff, Automatedon 04-2 Absolute Lymph 2.03 X10 3/uL Normal 0.83-4.51 [facility] Comment on above: Performed By: #### L 100.0100, L500.2500 ####[facility] [address] [place], [address] Absolute Neut 14.1 X10 3/uL High 2.0-7.7 [facility] Comment on above: Performed By: #### L 100.0100, L500.2500 ####[facility] [address] [place], [address] Basophils/100 WBC (Bld) 0.3 % Normal 0-1 [facility] Comment on above: Performed By: #### L 100.0100, L500.2500 ####[facility] [address] [place], [address] Eosinophils/100 WBC (Bld) 0.1 % Normal 0-5 [facility] Comment on above: Performed By: #### L 100.0100, L500.2500 ####[facility] [address] [place], [address] Erythrocyte distribution width (RBC) [Ratio] 13.3 % Normal 11.6-14.6 [facility] Comment on above: Performed By: #### L 100.0100, L500.2500 ####[facility] [address] [place], [address] Hematocrit (Bld) [Volume fraction] 36.8 % Low 37-47 [facility] Comment on above: Performed By: #### L 100.0100, L500.2500 ####[facility] [address] [place], [address] Hemoglobin (Bld) [Mass/Vol] 12.4 g/dL Normal 12.0-15.0 [facility] Comment on above: Performed By: #### L 100.0100, L500.2500 ####[facility] [address] [place], [address] IG% 0.800 Normal 0.0-0.9 [facility] Comment on above: Result Comment: IG% - Immature Granulocytes (promyelocytes, myelocytes andmetamyelocytes) > 1% indicates that a LEFT SHIFT is Present. Performed By: #### L 100.0100, L500.2500 ####[facility] [address] [place], [address] Lymphocytes/100 WBC (Bld) 11.8 % Low 19-41 [facility] Comment on above: Performed By: #### L 100.0100, L500.2500 ####[facility] [address] [place], [address] MCH (RBC) [Entitic mass] 29.5 pg Normal 27.0-32.0 [facility] Comment on above: Performed By: #### L 100.0100, L500.2500 ####[facility] [address] [place], [address] MCHC (RBC) [Mass/Vol] 33.7 g/dL Normal 32-36 [facility] Comment on above: Performed By: #### L 100.0100, L500.2500 ####[facility] [address] [place], [address] MCV (RBC) [Entitic vol] 87.4 fL Normal 81-99 [facility] Comment on above: Performed By: #### L 100.0100, L500.2500 ####[facility] [address] [place], [address] Monocytes/100 WBC (Bld) 5.0 % Normal 0-10 [facility] Comment on above: Performed By: #### L 100.0100, L500.2500 ####[facility] [address] [place], [address] Neutrophils/100 WBC (Bld) 82.0 % High 47-70 [facility] Comment on above: Performed By: #### L 100.0100, L500.2500 ####[facility] [address] [place], [address] Nucleated RBC (Bld) [#/Vol] 0 10*3/uL Normal 0-5 [facility] Comment on above: Performed By: #### L 100.0100, L500.2500 ####[facility] [address] [place], [address] Platelet mean volume (Bld) [Entitic vol] 12.4 fL High 6.2-12.0 [facility] Comment on above: Performed By: #### L 100.0100, L500.2500 ####[facility] [address] [place], [address] Platelets (Bld) [#/Vol] 165 10*3/uL Normal 150-450 [facility] Comment on above: Performed By: #### L 100.0100, L500.2500 ####[facility] [address] [place], [address] RBC (Bld) [#/Vol] 4.21 10*6/uL Normal 4.2-5.4 [facility] Comment on above: Performed By: #### L 100.0100, L500.2500 ####[facility] [address] [place], [address] RDW SD 42.4 fl Normal 35.1-43.9 [facility] Comment on above: Performed By: #### L 100.0100, L500.2500 ####[facility] [address] [place], [address] WBC (Bld) [#/Vol] 17.1 10*3/uL High 4.4-11.0 [facility] Comment on above: Performed By: #### L 100.0100, L500.2500 ####[facility] [address] [place], [address] Discharge Instructionon 11-27 Discharge Instruction Normal [facility] Basic Metabolic Profile (BMP )on 12-15-2024 BUN/CRE 19.3 RATIO Normal 10-20 [facility] Comment on above: Performed By: #### L 500.2500, L100.0500 ####[facility] [address] [place], [address] Calcium [Mass/Vol] 7.9 mg/dL Normal 7.6-11.0 [facility] Comment on above: Performed By: #### L 500.2500, L100.0500 ####[facility] [address] [place], [address] Chloride [Moles/Vol] 106 mmol/L Normal 98-108 [facility] Comment on above: Performed By: #### L 500.2500, L100.0500 ####[facility] [address] [place], [address] CO2 [Moles/Vol] 14.3 mmol/L Low 21.0-32.0 [facility] Comment on above: Performed By: #### L 500.2500, L100.0500 ####[facility] [address] [place], [address] Creatinine [Mass/Vol] 0.56 mg/dL Low 0.70-1.20 [facility] Comment on above: Performed By: #### L 500.2500, L100.0500 ####[facility] [address] [place], [address] ECRCL 153.51 ml/min Normal 50-250 [facility] Comment on above: Performed By: #### L 500.2500, L100.0500 ####[facility] [address] [place], [address] GAP 17 High 5-15 [facility] Comment on above: Performed By: #### L 500.2500, L100.0500 ####[facility] [address] [place], [address] GFR/1.73 sq M.predicted among non-blacks MDRD (S/P/Bld) [Vol rate/Area] 126 mL/min/{1.73_m2} Normal >60 [facility] Comment on above: Result Comment: mL/m in/1.73m2 CKD-EPI Creatinine Equation (2020) Performed By: #### L 500.2500, L100.0500 ####[facility] [address] [place], [address] Glucose [Mass/Vol] 40 mg/dL Invalid Interpretation Code 70-99 [facility] Comment on above: Result Comment: Crit ical Result(s) Called at: 0709 by:??ROSLYN MACK Results read back by same. Performed By: #### L 500.2500, L100.0500 ####[facility] [address] [place], [address] Potassium [Moles/Vol] 3.1 mmol/L Low 3.3-5.1 [facility] Comment on above: Performed By: #### L 500.2500, L100.0500 ####[facility] [address] [place], [address] Sodium [Moles/Vol] 138 mmol/L Normal 133-145 [facility] Comment on above: Performed By: #### L 500.2500, L100.0500 ####[facility] [address] [place], [address] Urea nitrogen [Mass/Vol] 11 mg/dL Normal 4-19 [facility] Comment on above: Performed By: #### L 500.2500, L100.0500 ####[facility] [address] [place], [address] Bedside Glucoseon 12-15-2024 FINGERSTICK GLU 260 mg/dL High -106 [facility] Comment on above: Result Comment: EDGAR GEMENT OF PATIENT CARE PER NURSING PROTOCOL Performed By: #### L 501.080 ####[facility] [address] [place], [address] FINGERSTICK GLU 307 mg/dL High [facility]106 [facility] Comment on above: Result Comment: EDGAR GEMENT OF PATIENT CARE PER NURSING PROTOCOL Performed By: #### L 501.080 ####[facility] [address] [place], [address] FINGERSTICK GLU 204 mg/dL High [address] [place] [address] Comment on above: Result Comment: EDGAR GEMENT OF PATIENT CARE PER NURSING PROTOCOL Performed By: #### L 501.080 ####[facility] [address] [place], [address] FINGERSTICK GLU 77 mg/dL Normal -[address] [place] [address] Comment on above: Result Comment: EDGAR GEMENT OF PATIENT CARE PER NURSING PROTOCOL Performed By: #### L 501.080 ####[facility] [address] [place], [address] FINGERSTICK GLU 34 mg/dL Invalid Interpretation Code -[address] [place] [address] Comment on above: Result Comment: EDGAR GEMENT OF PATIENT CARE PER NURSING PROTOCOL Performed By: #### L 501.080 ####[facility] [address] [place], [address] FINGERSTICK GLU 109 mg/dL High [address] [place] [address] Comment on above: Result Comment: EDGAR GEMENT OF PATIENT CARE PER NURSING PROTOCOL Performed By: #### L 501.080 ####[facility] [address] [place], [address] CBC-Complete Blood Cnt No Di ffon 12-15-2024 Erythrocyte distribution width (RBC) [Ratio] 13.1 % Normal 11.6-14.6 [facility] Comment on above: Performed By: #### L 500.2500, L100.0500 ####[facility] [address] [place], [address] Hematocrit (Bld) [Volume fraction] 36.0 % Low 37-47 [facility] Comment on above: Performed By: #### L 500.2500, L100.0500 ####[facility] [address] [place], [address] Hemoglobin (Bld) [Mass/Vol] 12.2 g/dL Normal 12.0-15.0 [facility] Comment on above: Performed By: #### L 500.2500, L100.0500 ####[facility] [address] [place], [address] MCH (RBC) [Entitic mass] 30.1 pg Normal 27.0-32.0 [facility] Comment on above: Performed By: #### L 500.2500, L100.0500 ####[facility] [address] [place], [address] MCHC (RBC) [Mass/Vol] 33.9 g/dL Normal 32-36 [facility] Comment on above: Performed By: #### L 500.2500, L100.0500 ####[facility] [address] [place], [address] MCV (RBC) [Entitic vol] 88.9 fL Normal 81-99 [facility] Comment on above: Performed By: #### L 500.2500, L100.0500 ####[facility] [address] [place], [address] Platelet mean volume (Bld) [Entitic vol] 12.9 fL High 6.2-12.0 [facility] Comment on above: Performed By: #### L 500.2500, L100.0500 ####[facility] [address] [place], [address] Platelets (Bld) [#/Vol] 145 10*3/uL Low 150-450 [facility] Comment on above: Performed By: #### L 500.2500, L100.0500 ####[facility] [address] [place], [address] RBC (Bld) [#/Vol] 4.05 10*6/uL Low 4.2-5.4 [facility] Comment on above: Performed By: #### L 500.2500, L100.0500 ####[facility] [address] [place], [address] RDW SD 42.8 fl Normal 35.1-43.9 [facility] Comment on above: Performed By: #### L 500.2500, L100.0500 ####[facility] [address] [place], [address] WBC (Bld) [#/Vol] 16.4 10*3/uL High 4.4-11.0 [facility] Comment on above: Performed By: #### L 500.2500, L100.0500 ####[facility] [address] [place], [address] Basic Metabolic Profile (BMP )on 12-14-2024 BUN/CRE 17.1 RATIO Normal 10-20 [facility] Comment on above: Performed By: #### L 500.2500 ####[facility] [address] [place], [address] Calcium [Mass/Vol] 7.7 mg/dL Normal 7.6-11.0 [facility] Comment on above: Performed By: #### L 500.2500 ####[facility] [address] [place], [address] Chloride [Moles/Vol] 108 mmol/L Normal 98-108 [facility] Comment on above: Performed By: #### L 500.2500 ####[facility] [address] [place], [address] CO2 [Moles/Vol] 15.3 mmol/L Low 21.0-32.0 [facility] Comment on above: Performed By: #### L 500.2500 ####[facility] [address] [place], [address] Creatinine [Mass/Vol] 0.67 mg/dL Low 0.70-1.20 [facility] Comment on above: Performed By: #### L 500.2500 ####[facility] [address] [place], [address] ECRCL 138.78 ml/min Normal 50-250 [facility] Comment on above: Performed By: #### L 500.2500 ####[facility] [address] [place], [address] GAP 15 Normal 5-15 [facility] Comment on above: Performed By: #### L 500.2500 ####[facility] [address] [place], [address] GFR/1.73 sq M.predicted among non-blacks MDRD (S/P/Bld) [Vol rate/Area] 121 mL/min/{1.73_m2} Normal >60 [facility] Comment on above: Result Comment: mL/m in/1.73m2 CKD-EPI Creatinine Equation (2020) Performed By: #### L 500.2500 ####[facility] [address] [place], [address] Glucose [Mass/Vol] 180 mg/dL High 70-99 [facility] Comment on above: Performed By: #### L 500.2500 ####[facility] [address] [place], [address] Potassium [Moles/Vol] 3.3 mmol/L Normal 3.3-5.1 [facility] Comment on above: Performed By: #### L 500.2500 ####[facility] [address] [place], [address] Sodium [Moles/Vol] 138 mmol/L Normal 133-145 [facility] Comment on above: Performed By: #### L 500.2500 ####[facility] [address] [place], [address] Urea nitrogen [Mass/Vol] 11 mg/dL Normal 4-19 [facility] Comment on above: Performed By: #### L 500.2500 ####[facility] [address] [place], [address] Bedside Glucoseon 12-14-2024 FINGERSTICK GLU 186 mg/dL High 74-106 [facility] Comment on above: Result Comment: EDGAR GEMENT OF PATIENT CARE PER NURSING PROTOCOL Performed By: #### L 501.080 ####[facility] [address] [place], [address] FINGERSTICK GLU 291 mg/dL High 74-106 [facility] Comment on above: Result Comment: EDGAR GEMENT OF PATIENT CARE PER NURSING PROTOCOL Performed By: #### L 501.080 ####[facility] [address] [place], [address] FINGERSTICK GLU 352 mg/dL High 74-106 [facility] Comment on above: Result Comment: EDGAR GEMENT OF PATIENT CARE PER NURSING PROTOCOL Performed By: #### L 501.080 ####[facility] [address] [place], [address] Beta-Hydroxbytyrateon 2024 BETA-HYDROXYBUT 1.9 mmol/L Normal 0.0-0.3 [facility] Comment on above: Performed By: #### L 700.6800, L501.2450, L500.4050, L501.6901 ####[facility] [address] [place], [address] CBC W/Diff, Automatedon 11-26 Absolute Lymph 2.40 X10 3/uL Normal 0.83-4.51 [facility] Comment on above: Performed By: #### L 100.0100 ####[facility] [address] [place], [address] Absolute Neut 12.5 X10 3/uL High 2.0-7.7 [facility] Comment on above: Performed By: #### L 100.0100 ####[facility] [address] [place], [address] Basophils/100 WBC (Bld) 0.4 % Normal 0-1 [facility] Comment on above: Performed By: #### L 100.0100 ####[facility] [address] [place], [address] Eosinophils/100 WBC (Bld) 0.1 % Normal 0-5 [facility] Comment on above: Performed By: #### L 100.0100 ####[facility] [address] [place], [address] Erythrocyte distribution width (RBC) [Ratio] 12.9 % Normal 11.6-14.6 [facility] Comment on above: Performed By: #### L 100.0100 ####[facility] [address] [place], [address] Hematocrit (Bld) [Volume fraction] 39.9 % Normal 37-47 [facility] Comment on above: Performed By: #### L 100.0100 ####[facility] [address] [place], [address] Hemoglobin (Bld) [Mass/Vol] 13.7 g/dL Normal 12.0-15.0 [facility] Comment on above: Performed By: #### L 100.0100 ####[facility] [address] [place], [address] IG% 0.800 Normal 0.0-0.9 [facility] Comment on above: Result Comment: IG% - Immature Granulocytes (promyelocytes, myelocytes andmetamyelocytes) > 1% indicates that a LEFT SHIFT is Present. Performed By: #### L 100.0100 ####[facility] [address] [place], [address] Lymphocytes/100 WBC (Bld) 15.1 % Low 19-41 [facility] Comment on above: Performed By: #### L 100.0100 ####[facility] [address] [place], [address] MCH (RBC) [Entitic mass] 29.7 pg Normal 27.0-32.0 [facility] Comment on above: Performed By: #### L 100.0100 ####[facility] [address] [place], [address] MCHC (RBC) [Mass/Vol] 34.3 g/dL Normal 32-36 [facility] Comment on above: Performed By: #### L 100.0100 ####[facility] [address] [place], [address] MCV (RBC) [Entitic vol] 86.4 fL Normal 81-99 [facility] Comment on above: Performed By: #### L 100.0100 ####[facility] [address] [place], [address] Monocytes/100 WBC (Bld) 4.9 % Normal 0-10 [facility] Comment on above: Performed By: #### L 100.0100 ####[facility] [address] [place], [address] Neutrophils/100 WBC (Bld) 78.7 % High 47-70 [facility] Comment on above: Performed By: #### L 100.0100 ####[facility] [address] [place], [address] Nucleated RBC (Bld) [#/Vol] 0 10*3/uL Normal 0-5 [facility] Comment on above: Performed By: #### L 100.0100 ####[facility] [address] [place], [address] Platelet mean volume (Bld) [Entitic vol] 12.6 fL High 6.2-12.0 [facility] Comment on above: Performed By: #### L 100.0100 ####[facility] [address] [place], [address] Platelets (Bld) [#/Vol] 159 10*3/uL Normal 150-450 [facility] Comment on above: Performed By: #### L 100.0100 ####[facility] [address] [place], [address] RBC (Bld) [#/Vol] 4.62 10*6/uL Normal 4.2-5.4 [facility] Comment on above: Performed By: #### L 100.0100 ####[facility] [address] [place], [address] RDW SD 40.1 fl Normal 35.1-43.9 [facility] Comment on above: Performed By: #### L 100.0100 ####[facility] [address] [place], [address] WBC (Bld) [#/Vol] 15.9 10*3/uL High 4.4-11.0 [facility] Comment on above: Performed By: #### L 100.0100 ####[facility] [address] [place], [address] Comprehensive Metabolic Prof ilon 12-14-2024 Albumin [Mass/Vol] 4.2 g/dL Normal 3.5-5.0 [facility] Comment on above: Performed By: #### L 700.6800, L501.2450, L500.4050, L501.6901 ####[facility] [address] [place], [address] Albumin/Globulin [Mass ratio] 1.8 {ratio} Normal 0.9-2.4 [facility] Comment on above: Performed By: #### L 700.6800, L501.2450, L500.4050, L501.6901 ####[facility] [address] [place], [address] ALK PHOS 76 U/L Normal 35-104 [facility] Comment on above: Performed By: #### L 700.6800, L501.2450, L500.4050, L501.6901 ####[facility] [address] [place], [address] ALT [Catalytic activity/Vol] 11 U/L Normal <=34 [facility] Comment on above: Performed By: #### L 700.6800, L501.2450, L500.4050, L501.6901 ####[facility] [address] [place], [address] AST [Catalytic activity/Vol] 16 U/L Normal <=31 [facility] Comment on above: Performed By: #### L 700.6800, L501.2450, L500.4050, L501.6901 ####[facility] [address] [place], [address] Bilirubin [Mass/Vol] 0.92 mg/dL Normal 0.00-1.30 [facility] Comment on above: Performed By: #### L 700.6800, L501.2450, L500.4050, L501.6901 ####[facility] [address] [place], [address] BUN/CRE 18.2 RATIO Normal 10-20 [facility] Comment on above: Performed By: #### L 700.6800, L501.2450, L500.4050, L501.6901 ####[facility] [address] [place], [address] Calcium [Mass/Vol] 8.2 mg/dL Normal 7.6-11.0 [facility] Comment on above: Performed By: #### L 700.6800, L501.2450, L500.4050, L501.6901 ####[facility] [address] [place], [address] Chloride [Moles/Vol] 104 mmol/L Normal 98-108 [facility] Comment on above: Performed By: #### L 700.6800, L501.2450, L500.4050, L501.6901 ####[facility] [address] [place], [address] CO2 [Moles/Vol] 15.1 mmol/L Low 21.0-32.0 [facility] Comment on above: Performed By: #### L 700.6800, L501.2450, L500.4050, L501.6901 ####[facility] [address] [place], [address] Creatinine [Mass/Vol] 0.74 mg/dL Normal 0.70-1.20 [facility] Comment on above: Performed By: #### L 700.6800, L501.2450, L500.4050, L501.6901 ####[facility] [address] [place], [address] ECRCL 125.65 ml/min Normal 50-250 [facility] Comment on above: Performed By: #### L 700.6800, L501.2450, L500.4050, L501.6901 ####[facility] [address] [place], [address] GAP 17 High 5-15 [facility] Comment on above: Performed By: #### L 700.6800, L501.2450, L500.4050, L501.6901 ####[facility] [address] [place], [address] GFR/1.73 sq M.predicted among non-blacks MDRD (S/P/Bld) [Vol rate/Area] 112 mL/min/{1.73_m2} Normal >60 [facility] Comment on above: Result Comment: mL/m in/1.73m2 CKD-EPI Creatinine Equation (2020) Performed By: #### L 700.6800, L501.2450, L500.4050, L501.6901 ####[facility] [address] [place], [address] Globulin (S) [Mass/Vol] 2.4 g/dL Normal 2.2-4.2 [facility] Comment on above: Performed By: #### L 700.6800, L501.2450, L500.4050, L501.6901 ####[facility] [address] [place], [address] Glucose [Mass/Vol] 329 mg/dL High 70-99 [facility] Comment on above: Performed By: #### L 700.6800, L501.2450, L500.4050, L501.6901 ####[facility] [address] [place], [address] Potassium [Moles/Vol] 3.6 mmol/L Normal 3.3-5.1 [facility] Comment on above: Performed By: #### L 700.6800, L501.2450, L500.4050, L501.6901 ####[facility] [address] [place], [address] Sodium [Moles/Vol] 136 mmol/L Normal 133-145 [facility] Comment on above: Performed By: #### L 700.6800, L501.2450, L500.4050, L501.6901 ####[facility] [address] [place], [address] T PROT 6.5 g/dL Normal 5.9-8.4 [facility] Comment on above: Performed By: #### L 700.6800, L501.2450, L500.4050, L501.6901 ####[facility] [address] [place], [address] Urea nitrogen [Mass/Vol] 13 mg/dL Normal - [facility] Comment on above: Performed By: #### L 700.6800, L501.2450, L500.4050, L501.6901 ####[facility] [address] [place], [address] Emergency Department Summary on 12-14-2024 Emergency Department Summary Normal [facility] H AND P Exam - Hospitaliston 12-14-2024 H&P Exam - Hospitalist Normal [facility] Lipaseon 12-14-2024 Lipase [Catalytic activity/Vol] 13 U/L Normal 13-75 [facility] Comment on above: Result Comment: Plea se note:LIPASE revised reference range effective 22.New Lipase methodology. Expected to produce lower valuesthan the previous assay method.NEW Reference Range: 13 - 75 U/L Performed By: #### L 700.6800, L501.2450, L500.4050, L501.6901 ####[facility] [address] [place], [address] Magnesiumon 12-14-2024 Magnesium [Mass/Vol] 1.5 mg/dL Normal 1.5-2.2 [facility] Comment on above: Performed By: #### L 501.5200, L501.2300 ####[facility] [address] [place], [address] Phosphoruson 12-14-2024 Phosphate [Mass/Vol] 1.4 mg/dL Invalid Interpretation Code 2.7-4.5 [facility] Comment on above: Performed By: #### L 501.5200, L501.2300 ####[facility] [address] [place], [address] ,Serum,hCG Quali.on 12-14-2024 HCG, SERUM QUAL Negative Normal [facility] Comment on above: Performed By: #### L 700.6800, L501.2450, L500.4050, L501.6901 ####[facility] [address] [place], [address] Urinalysis, Completeon 12-14 EPI,SQUAMOUS 0-5 SEEN Normal 5-10 [facility] Comment on above: Order Comment: CLEAN CATCH Performed By: #### L 400.0001 ####[facility] [address] [place], [address] BACTERIA 0 SEEN Normal None Seen [facility] Comment on above: Order Comment: CLEAN CATCH Performed By: #### L 400.0001 ####[facility] [address] [place], [address] Mucus Ql (Urine sed) 0 SEEN Normal [facility] Comment on above: Order Comment: CLEAN CATCH Performed By: #### L 400.0001 ####[facility] [address] [place], [address] RBC 0 SEEN Normal 0-5 [facility] Comment on above: Order Comment: CLEAN CATCH Performed By: #### L 400.0001 ####[facility] [address] [place], [address] WBC 0 SEEN Normal 0-5 [facility] Comment on above: Order Comment: CLEAN CATCH Performed By: #### L 400.0001 ####[facility] [address] [place], [address] Venous Blood Gason 5 Blood Gas Type ISABELLE Normal [facility] Comment on above: Performed By: #### L 9000.0810 ####[facility] [address] [place], [address] CO2 [Moles/Vol] 16 mmol/L Low 23-33 [facility] Comment on above: Performed By: #### L 9000.0810 ####[facility] [address] [place], [address] HCO3 (Bld) [Moles/Vol] 15 mmol/L Low 22-26 [facility] Comment on above: Performed By: #### L 9000.0810 ####[facility] [address] [place], [address] O2 Delivery Dev Room Air [facility] Comment on above: Performed By: #### L 9000.0810 ####[facility] [address] [place], [address] SITE Not entered [facility] Comment on above: Performed By: #### L 9000.0810 ####[facility] [address] [place], [address] VBG BE -9 mmol/L Low -1.0-3.5 [facility] Comment on above: Performed By: #### L 9000.0810 ####[facility] [address] [place], [address] VBG pCO2 21.7 mmHg Low 41-51 [facility] Comment on above: Performed By: #### L 9000.0810 ####[facility] [address] [place], [address] VBG pH 7.45 High 7.32-7.42 [facility] Comment on above: Performed By: #### L 9000.0810 ####[facility] [address] [place], [address] VBG PO2 43 mmHg High 25-40 [facility] Comment on above: Performed By: #### L 9000.0810 ####[facility] [address] [place], [address] VBG SO2 83 High 50-70 [facility] Comment on above: Performed By: #### L 9000.0810 ####[facility] [address] [place], [address] CBC W/Diff, Automatedon PLT EST ADEQUATE Normal ADEQ [facility] Comment on above: Performed By: #### L 500.4050, L501.9985, L100.0100, L503.6030, L509.6001, L501.9520, L506.1001 ####[facility] [address] [place], [address] Comprehensive Metabolic Prof ilon 11-28-2024 Albumin [Mass/Vol] 4.1 g/dL Normal 3.5-5.0 [facility] Comment on above: Performed By: #### L 500.4050, L501.9985, L100.0100, L503.6030, L509.6001, L501.9520, L506.1001 ####[facility] [address] [place], [address] Albumin/Globulin [Mass ratio] 1.8 {ratio} Normal 0.9-2.4 [facility] Comment on above: Performed By: #### L 500.4050, L501.9985, L100.0100, L503.6030, L509.6001, L501.9520, L506.1001 ####[facility] [address] [place], [address] ALK PHOS 68 U/L Normal 35-104 [facility] Comment on above: Performed By: #### L 500.4050, L501.9985, L100.0100, L503.6030, L509.6001, L501.9520, L506.1001 ####[facility] [address] [place], [address] ALT [Catalytic activity/Vol] 6 U/L Normal <=34 [facility] Comment on above: Performed By: #### L 500.4050, L501.9985, L100.0100, L503.6030, L509.6001, L501.9520, L506.1001 ####[facility] [address] [place], [address] AST [Catalytic activity/Vol] 16 U/L Normal <=31 [facility] Comment on above: Performed By: #### L 500.4050, L501.9985, L100.0100, L503.6030, L509.6001, L501.9520, L506.1001 ####[facility] [address] [place], [address] Bilirubin [Mass/Vol] 0.29 mg/dL Normal 0.00-1.30 [facility] Comment on above: Performed By: #### L 500.4050, L501.9985, L100.0100, L503.6030, L509.6001, L501.9520, L506.1001 ####[facility] [address] [place], [address] BUN/CRE 19.9 RATIO Normal 10-20 [facility] Comment on above: Performed By: #### L 500.4050, L501.9985, L100.0100, L503.6030, L509.6001, L501.9520, L506.1001 ####[facility] [address] [place], [address] Calcium [Mass/Vol] 9.1 mg/dL Normal 7.6-11.0 [facility] Comment on above: Performed By: #### L 500.4050, L501.9985, L100.0100, L503.6030, L509.6001, L501.9520, L506.1001 ####[facility] [address] [place], [address] Chloride [Moles/Vol] 107 mmol/L Normal 98-108 [facility] Comment on above: Performed By: #### L 500.4050, L501.9985, L100.0100, L503.6030, L509.6001, L501.9520, L506.1001 ####[facility] [address] [place], [address] CO2 [Moles/Vol] 20.4 mmol/L Low 21.0-32.0 [facility] Comment on above: Performed By: #### L 500.4050, L501.9985, L100.0100, L503.6030, L509.6001, L501.9520, L506.1001 ####[facility] [address] [place], [address] Creatinine [Mass/Vol] 0.59 mg/dL Low 0.70-1.20 [facility] Comment on above: Performed By: #### L 500.4050, L501.9985, L100.0100, L503.6030, L509.6001, L501.9520, L506.1001 ####[facility] [address] [place], [address] GAP 11 Normal 5-15 [facility] Comment on above: Performed By: #### L 500.4050, L501.9985, L100.0100, L503.6030, L509.6001, L501.9520, L506.1001 ####[facility] [address] [place], [address] GFR/1.73 sq M.predicted among non-blacks MDRD (S/P/Bld) [Vol rate/Area] 124 mL/min/{1.73_m2} Normal >60 [facility] Comment on above: Result Comment: mL/m in/1.73m2 CKD-EPI Creatinine Equation (2020) Performed By: #### L 500.4050, L501.9985, L100.0100, L503.6030, L509.6001, L501.9520, L506.1001 ####[facility] [address] [place], [address] Globulin (S) [Mass/Vol] 2.3 g/dL Normal 2.2-4.2 [facility] Comment on above: Performed By: #### L 500.4050, L501.9985, L100.0100, L503.6030, L509.6001, L501.9520, L506.1001 ####[facility] [address] [place], [address] Glucose [Mass/Vol] 222 mg/dL High 70-99 [facility] Comment on above: Performed By: #### L 500.4050, L501.9985, L100.0100, L503.6030, L509.6001, L501.9520, L506.1001 ####[facility] [address] [place], [address] Potassium [Moles/Vol] 4.2 mmol/L Normal 3.3-5.1 [facility] Comment on above: Performed By: #### L 500.4050, L501.9985, L100.0100, L503.6030, L509.6001, L501.9520, L506.1001 ####[facility] [address] [place], [address] Sodium [Moles/Vol] 138 mmol/L Normal 133-145 [facility] Comment on above: Performed By: #### L 500.4050, L501.9985, L100.0100, L503.6030, L509.6001, L501.9520, L506.1001 ####[facility] [address] [place], [place], [address] T PROT 6.4 g/dL Normal 5.9-8.4 [facility] Comment on above: Performed By: #### L 500.4050, L501.9985, L100.0100, L503.6030, L509.6001, L501.9520, L506.1001 ####[facility] [address] [place], [place], [address] Urea nitrogen [Mass/Vol] 12 mg/dL Normal 4-19 [facility] Comment on above: Performed By: #### L 500.4050, L501.9985, L100.0100, L503.6030, L509.6001, L501.9520, L506.1001 ####[facility] [address] [place], [place], [phone] Hemoglobin A1con 11-28-2024 HbA1c (Bld) [Mass fraction] 10.1 % Normal <=5.6 [facility] Comment on above: Performed By: #### L 500.4050, L501.9985, L100.0100, L503.6030, L509.6001, L501.9520, L506.1001 ####[facility] [address] [place], [address] Iron+Iron Binding Capacityon 11-28-2024 Iron [Mass/Vol] 71 ug/dL Normal 50-170 [facility] Comment on above: Performed By: #### L 500.4050, L501.9985, L100.0100, L503.6030, L509.6001, L501.9520, L506.1001 ####[facility] [address] [place], [address] IRON SATURATION 28.0 Normal 13-59 [facility] Comment on above: Performed By: #### L 500.4050, L501.9985, L100.0100, L503.6030, L509.6001, L501.9520, L506.1001 ####[facility] [address] [place], [address] TIBC 248 ug/dL Low 250-450 [facility] Comment on above: Performed By: #### L 500.4050, L501.9985, L100.0100, L503.6030, L509.6001, L501.9520, L506.1001 ####[facility] [address] [place], [address] UIBC 177 ug/dL Low 228-428 [facility] Comment on above: Performed By: #### L 500.4050, L501.9985, L100.0100, L503.6030, L509.6001, L501.9520, L506.1001 ####[facility] [address] [place], [address] L509.6001on 11-28-2024 CORTISOL 5.66 ug/dL Low 6.02-18.40 [facility] Comment on above: Performed By: #### L 500.4050, L501.9985, L100.0100, L503.6030, L509.6001, L501.9520, L506.1001 ####[facility] [address] [place], [address] Thyroid Stim Hormone (TSH)on 11-28-2024 TSH 0.451 uIU/mL Normal 0.300-4.200 [facility] Comment on above: Performed By: #### L 500.4050, L501.9985, L100.0100, L503.6030, L509.6001, L501.9520, L506.1001 ####[facility] [address] [place], [address] Vitamin D,25 Hydroxyon 11-28 Vitamin D 25-OH 15.7 ng/mL Low 30-100 [facility] Comment on above: Result Comment: Shira min D StatusDeficiency: <20 ng/mL (50nmol/L)Insufficiency: 20-30 ng/mL (50-75 nmol/L)Sufficiency: 30-100 ng/mL (75-250 nmol/L)Toxicity: >100 ng/mL (>250 nmol/L) Performed By: #### L 500.4050, L501.9985, L100.0100, L503.6030, L509.6001, L501.9520, L506.1001 ####[facility] [address] [place], [address] CNCOon 11-13-2024 CNCO Letter Text Normal [facility] CNOVon 11-11-2024 CNOV Office Visit ([facility]ST[facility] ) KATHLEEN VILLA ([id number]) 1995 F CHT Date Time Provider Department [...] every 24 hours. 38.7 mL 1 Insulin [place], Disposable, (PEN NEEDLE) 32 gauge x 5/32 [...] no edema RESPIRATORY: No dyspnea : neg [employer]ER: neg The remainder of the review [...] no hepat (more content not included)... Normal [facility] KATHLE[facility]ILL[facility] ([id number]) 1995 F CHT Date Time Provider Department 11/11/24 [facility] During your visit today, we recorded the following information about you: Guero Hammer LPN 11/11/2024 2:03 PM Signed Please let her know that her x-ray demonstrates a significantly large amount of stool throughout the colon. [facility] spoke [...] Units subcutaneously every 24 hours. - Insulin [place], Disposable, (PEN NEEDLE) 32 gauge x Inject [...] (post-traumatic stress disorder) [F43.10] 12/25/2012 DVT prophylaxis [GHN2629] 12/25/2012 09/04/2013 DISPOSITION AND FOLLOW-UP [V999.01] 12/25/2012 09/04/2013 HTN (hypertension) [I10] Hypertension in , antepartum [O16.9] 09/19/2013 01/08/2014 GBS (group B Streptococcus carrier), +RV cultur*11/11/2013 04/16/2014 [Z34.90] 11/22/2013 04/16/2014 Diabetes mellitus in (HCC) [O24.919] 12/25/2013 04/16/2014 Diabetic ketoacidosis without coma associated w*01/08/2014 02/04/2023 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] 01/08/2014 DVT prophylaxis [TVW8971] 02/25/2014 04/16/2014 care and examination [Z39.2] 02/25/2014 [...] 1 d (more content not included)... Normal [facility] XR ABDOMEN 1V SUPINEon 11-11 XR [...] on Nov 11 2024 11:13AM EST [id number] [facility] XR Abdomen Supine and Uprigh ton 11-11-2024 IMPRESSION: Moderate-large colonic stool burden. No dilated bowel. Transcribed Using Voice Recognition Transcribe Date/Time: Nov 11 2024 11:10A Dictated by: TRES EVANS DO This examination was interpreted and the report reviewed and electronically signed by: TRES EVANS DO on Nov 11 2024 11:13AM EST [facility] * * *Final Report* [...] right lower abdomen/pelvis. No acute bony abnormality. [facility] Provider, Ama Armando [facility] - 11/11/2024 * * *Final Report* [...] )on 11-06-2024 BUN/CRE 16.8 RATIO Normal 10-20 [facility] Comment on above: Performed By: #### L [id number] ####[facility] [id number] [place], [address] Calcium [Mass/Vol] 8.0 mg/dL Normal 7.6-11.0 [facility] Comment on above: Performed By: #### L [id number] ####[facility] [id number] [place], [address] Chloride [Moles/Vol] 104 mmol/L Normal 98-108 [facility] Comment on above: Performed By: #### L 500.2500 ####[facility] [address] [place], [address] CO2 [Moles/Vol] 21.1 mmol/L Normal 21.0-32.0 [facility] Comment on above: Performed By: #### L 500.2500 ####[facility] [address] [place], [address] Creatinine [Mass/Vol] 0.64 mg/dL Low 0.70-1.20 [facility] Comment on above: Performed By: #### L 500.2500 ####[facility] [address] [place], [address] ECRCL 134.33 ml/min Normal 50-250 [facility] Comment on above: Performed By: #### L 500.2500 ####[facility] [address] [place], [address] GAP 12 Normal 5-15 [facility] Comment on above: Performed By: #### L 500.2500 ####[facility] [address] [place], [address] GFR/1.73 sq M.predicted among non-blacks MDRD (S/P/Bld) [Vol rate/Area] 122 mL/min/{1.73_m2} Normal >60 [facility] Comment on above: Result Comment: mL/m in/1.73m2 CKD-EPI Creatinine Equation (2020) Performed By: #### L 500.2500 ####[facility] [address] [place], [address] Glucose [Mass/Vol] 64 mg/dL Low 70-99 [facility] Comment on above: Performed By: #### L 500.2500 ####[facility] [address] [place], [address] Potassium [Moles/Vol] 3.3 mmol/L Normal 3.3-5.1 [facility] Comment on above: Performed By: #### L 500.2500 ####[facility] [address] [place], [address] Sodium [Moles/Vol] 137 mmol/L Normal 133-145 [facility] Comment on above: Performed By: #### L 500.2500 ####[facility] [address] [place], [address] Urea nitrogen [Mass/Vol] 11 mg/dL Normal 4-19 [facility] Comment on above: Performed By: #### L 500.2500 ####[facility] [address] [place], [address] Bedside Glucoseon 11-06-2024 FINGERSTICK GLU 100 mg/dL Normal 74-106 [facility] Comment on above: Result Comment: EDGAR GEMENT OF PATIENT CARE PER NURSING PROTOCOL Performed By: #### L 501.080 ####[facility] [address] [place], [address] FINGERSTICK GLU 151 mg/dL High 74-106 [facility] Comment on above: Result Comment: EDGAR GEMENT OF PATIENT CARE PER NURSING PROTOCOL Performed By: #### L 501.080 ####[facility] [address] [place], [address] FINGERSTICK GLU 153 mg/dL High 74-106 [facility] Comment on above: Result Comment: EDGAR GEMENT OF PATIENT CARE PER NURSING PROTOCOL Performed By: #### L 501.080 ####[facility] [address] [place], [address] FINGERSTICK GLU 50 mg/dL Low 74-106 [facility] Comment on above: Result Comment: EDGAR GEMENT OF PATIENT CARE PER NURSING PROTOCOL Performed By: #### L 501.080 ####[facility] [address] [place], [address] FINGERSTICK GLU 141 mg/dL High 74-106 [facility] Comment on above: Result Comment: EDGAR GEMENT OF PATIENT CARE PER NURSING PROTOCOL Performed By: #### L 501.080 ####[facility] [address] [place], [address] FINGERSTICK GLU 129 mg/dL High 74-106 [facility] Comment on above: Result Comment: EDGAR HUNG OF PATIENT CARE PER NURSING PROTOCOL Performed By: #### L 501.080 ####[facility] [address] [place], [address] CBC W/Diff, Automatedon 10-26 Absolute Lymph 2.60 X10 3/uL Normal 0.83-4.51 [facility] Comment on above: Performed By: #### L 100.0100 ####[facility] [address] [place], [address] Absolute Neut 7.6 X10 3/uL Normal 2.0-7.7 [facility] Comment on above: Performed By: #### L 100.0100 ####[facility] [address] [place], [address] Basophils/100 WBC (Bld) 0.5 % Normal 0-1 [facility] Comment on above: Performed By: #### L 100.0100 ####[facility] [address] [place], [address] Eosinophils/100 WBC (Bld) 0.4 % Normal 0-5 [facility] Comment on above: Performed By: #### L 100.0100 ####[facility] [address] [place], [address] Erythrocyte distribution width (RBC) [Ratio] 13.7 % Normal 11.6-14.6 [facility] Comment on above: Performed By: #### L 100.0100 ####[facility] [address] [place], [address] Hematocrit (Bld) [Volume fraction] 36.0 % Low 37-47 [facility] Comment on above: Performed By: #### L 100.0100 ####[facility] [address] [place], [address] Hemoglobin (Bld) [Mass/Vol] 12.2 g/dL Normal 12.0-15.0 [facility] Comment on above: Performed By: #### L 100.0100 ####[facility] [address] [place], [address] IG% 1.000 High 0.0-0.9 [facility] Comment on above: Result Comment: IG% - Immature Granulocytes (promyelocytes, myelocytes andmetamyelocytes) > 1% indicates that a LEFT SHIFT is Present. Performed By: #### L 100.0100 ####[facility] [address] [place], [address] Lymphocytes/100 WBC (Bld) 23.4 % Normal 19-41 [facility] Comment on above: Performed By: #### L 100.0100 ####[facility] [address] [place], [address] MCH (RBC) [Entitic mass] 29.7 pg Normal 27.0-32.0 [facility] Comment on above: Performed By: #### L 100.0100 ####[facility] [address] [place], [address] MCHC (RBC) [Mass/Vol] 33.9 g/dL Normal 32-36 [facility] Comment on above: Performed By: #### L 100.0100 ####[facility] [address] [place], [address] MCV (RBC) [Entitic vol] 87.6 fL Normal 81-99 [facility] Comment on above: Performed By: #### L 100.0100 ####[facility] [address] [place], [address] Monocytes/100 WBC (Bld) 6.7 % Normal 0-10 [facility] Comment on above: Performed By: #### L 100.0100 ####[facility] [address] [place], [address] Neutrophils/100 WBC (Bld) 68.0 % Normal 47-70 [facility] Comment on above: Performed By: #### L 100.0100 ####[facility] [address] [place], [address] Nucleated RBC (Bld) [#/Vol] 0 10*3/uL Normal 0-5 [facility] Comment on above: Performed By: #### L 100.0100 ####[facility] [address] [place], [address] Platelet mean volume (Bld) [Entitic vol] 10.8 fL Normal 6.2-12.0 [facility] Comment on above: Performed By: #### L 100.0100 ####[facility] [address] [place], [address] Platelets (Bld) [#/Vol] 188 10*3/uL Normal 150-450 [facility] Comment on above: Performed By: #### L 100.0100 ####[facility] [address] [place], [address] RBC (Bld) [#/Vol] 4.11 10*6/uL Low 4.2-5.4 [facility] Comment on above: Performed By: #### L 100.0100 ####[facility] [address] [place], [address] RDW SD 43.6 fl Normal 35.1-43.9 [facility] Comment on above: Performed By: #### L 100.0100 ####[facility] [address] [place], [address] WBC (Bld) [#/Vol] 11.1 10*3/uL High 4.4-11.0 [facility] Comment on above: Performed By: #### L 100.0100 ####[facility] [address] [place], [address] Comprehensive Metabolic Prof ilon 11-06-2024 Albumin [Mass/Vol] 3.6 g/dL Normal 3.5-5.0 [facility] Comment on above: Order Comment: CMP-T IMED FOR A Q6 BMP Performed By: #### L 501.5200, L501.2300, L500.4050 ####[facility] [address] [place], [address] Albumin/Globulin [Mass ratio] 1.6 {ratio} Normal 0.9-2.4 [facility] Comment on above: Order Comment: CMP-T IMED FOR A Q6 BMP Performed By: #### L 501.5200, L501.2300, L500.4050 ####[facility] [address] [place], [address] ALK PHOS 76 U/L Normal 35-104 [facility] Comment on above: Order Comment: CMP-T IMED FOR A Q6 BMP Performed By: #### L 501.5200, L501.2300, L500.4050 ####[facility] [address] [place], [address] ALT [Catalytic activity/Vol] 14 U/L Normal <=34 [facility] Comment on above: Order Comment: CMP-T IMED FOR A Q6 BMP Performed By: #### L 501.5200, L501.2300, L500.4050 ####[facility] [address] [place], [address] AST [Catalytic activity/Vol] 17 U/L Normal <=31 [facility] Comment on above: Order Comment: CMP-T IMED FOR A Q6 BMP Performed By: #### L 501.5200, L501.2300, L500.4050 ####[facility] [address] [place], [address] Bilirubin [Mass/Vol] 0.91 mg/dL Normal 0.00-1.30 [facility] Comment on above: Order Comment: CMP-T IMED FOR A Q6 BMP Performed By: #### L 501.5200, L501.2300, L500.4050 ####[facility] [address] [place], [address] BUN/CRE 12.2 RATIO Normal 10-20 [facility] Comment on above: Order Comment: CMP-T IMED FOR A Q6 BMP Performed By: #### L 501.5200, L501.2300, L500.4050 ####[facility] [address] [place], [address] Calcium [Mass/Vol] 8.2 mg/dL Normal 7.6-11.0 [facility] Comment on above: Order Comment: CMP-T IMED FOR A Q6 BMP Performed By: #### L 501.5200, L501.2300, L500.4050 ####[facility] [address] [place], [address] Chloride [Moles/Vol] 105 mmol/L Normal 98-108 [facility] Comment on above: Order Comment: CMP-T IMED FOR A Q6 BMP Performed By: #### L 501.5200, L501.2300, L500.4050 ####[facility] [address] [place], [address] CO2 [Moles/Vol] 22.2 mmol/L Normal 21.0-32.0 [facility] Comment on above: Order Comment: CMP-T IMED FOR A Q6 BMP Performed By: #### L 501.5200, L501.2300, L500.4050 ####[facility] [address] [place], [address] Creatinine [Mass/Vol] 0.61 mg/dL Low 0.70-1.20 [facility] Comment on above: Order Comment: CMP-T IMED FOR A Q6 BMP Performed By: #### L 501.5200, L501.2300, L500.4050 ####[facility] [address] [place], [address] ECRCL 140.93 ml/min Normal 50-250 [facility] Comment on above: Order Comment: CMP-T IMED FOR A Q6 BMP Performed By: #### L 501.5200, L501.2300, L500.4050 ####[facility] [address] [place], [address] GAP 11 Normal 5-15 [facility] Comment on above: Order Comment: CMP-T IMED FOR A Q6 BMP Performed By: #### L 501.5200, L501.2300, L500.4050 ####[facility] [address] [place], [address] GFR/1.73 sq M.predicted among non-blacks MDRD (S/P/Bld) [Vol rate/Area] 123 mL/min/{1.73_m2} Normal >60 [facility] Comment on above: Order Comment: CMP-T IMED FOR A Q6 BMP Result Comment: mL/m in/1.73m2 CKD-EPI Creatinine Equation (2020) Performed By: #### L 501.5200, L501.2300, L500.4050 ####[facility] [address] [place], [address] Globulin (S) [Mass/Vol] 2.2 g/dL Normal 2.2-4.2 [facility] Comment on above: Order Comment: CMP-T IMED FOR A Q6 BMP Performed By: #### L 501.5200, L501.2300, L500.4050 ####[facility] [address] [place], [address] Glucose [Mass/Vol] 122 mg/dL High 70-99 [facility] Comment on above: Order Comment: CMP-T IMED FOR A Q6 BMP Performed By: #### L 501.5200, L501.2300, L500.4050 ####[facility] [address] [place], [address] Potassium [Moles/Vol] 3.4 mmol/L Normal 3.3-5.1 [facility] Comment on above: Order Comment: CMP-T IMED FOR A Q6 BMP Performed By: #### L 501.5200, L501.2300, L500.4050 ####[facility] [address] [place], [address] Sodium [Moles/Vol] 138 mmol/L Normal 133-145 [facility] Comment on above: Order Comment: CMP-T IMED FOR A Q6 BMP Performed By: #### L 501.5200, L501.2300, L500.4050 ####[facility] [address] [place], [address] T PROT 5.9 g/dL Normal 5.9-8.4 [facility] Comment on above: Order Comment: CMP-T IMED FOR A Q6 BMP Performed By: #### L 501.5200, L501.2300, L500.4050 ####[facility] [address] [place], [address] Urea nitrogen [Mass/Vol] 7 mg/dL Normal 4-19 [facility] Comment on above: Order Comment: CMP-T IMED FOR A Q6 BMP Performed By: #### L 501.5200, L501.2300, L500.4050 ####[facility] [address] [place], [address] Discharge Instructionon 10-26 Discharge Instruction Normal [facility] Magnesiumon 11-06-2024 Magnesium [Mass/Vol] 2.2 mg/dL Normal 1.5-2.2 [facility] Comment on above: Order Comment: CMP-T IMED FOR A Q6 BMP Performed By: #### L 501.5200, L501.2300, L500.4050 ####[facility] [address] [place], [address] Phosphoruson 11-06-2024 Phosphate [Mass/Vol] 2.1 mg/dL Low 2.7-4.5 [facility] Comment on above: Order Comment: CMP-T IMED FOR A Q6 BMP Performed By: #### L 501.5200, L501.2300, L500.4050 ####[facility] [address] [place], [address] Urine Drug Screen (VISTA)on 11-06-2024 AMPHETAMINES Negative Normal <1000 ng/mL [facility] Comment on above: Performed By: #### L 505.5000 ####[facility] [address] [place], [address] BARBITIURATES Negative Normal < 200 ng/mL [facility] Comment on above: Performed By: #### L 505.5000 ####[facility] [address] [place], [address] BENZODIAZIPINE Negative Normal < 200 ng/mL [facility] Comment on above: Performed By: #### L 505.5000 ####[facility] [address] [place], [address] BUP Ur Drug Scr Negative Normal < 200 ng/mL [facility] Comment on above: Performed By: #### L 505.5000 ####[facility] [address] [place], [address] COCAINE Negative Normal < 300 ng/mL [facility] Comment on above: Performed By: #### L 505.5000 ####[facility] [address] [place], [address] Fentanyl Negative Normal [facility] Comment on above: Performed By: #### L 505.5000 ####[facility] [address] [place], [address] METHADONE Negative Normal < 300 ng/mL [facility] Comment on above: Performed By: #### L 505.5000 ####[facility] [address] [facility] [address] OPIATES Negative Normal < 300 ng/mL [facility] Comment on above: Performed By: #### L 505.5000 ####[facility] [address] [facility] [address] OXYCODONE Negative Normal < 100 ng/mL [facility] Comment on above: Performed By: #### L 505.5000 ####[facility] [address] [place] [id number] PCP Negative Normal < 25 ng/mL [facility] Comment on above: Performed By: #### L 505.5000 ####[facility] [address] [place] [address] THC Positive Normal < 50 ng/mL [facility] Comment on above: Result Comment: If c onfirmation testing is needed, a separate order will berequired to send out testing to the reference laboratory. Performed By: #### L 505.5000 ####[facility] [address] [place] [id number] Basic Metabolic Profile (BMP )on 11-05-2024 BUN/CRE 18.5 RATIO Normal 10-20 [facility] Comment on above: Performed By: #### L 500.2500 ####[facility] [address] [place], [address] Calcium [Mass/Vol] 7.5 mg/dL Low 7.6-11.0 [facility] Comment on above: Performed By: #### L 500.2500 ####[facility] [address] [place], [address] Chloride [Moles/Vol] 99 mmol/L Normal 98-108 [facility] Comment on above: Performed By: #### L 500.2500 ####[facility] [address] [place], [address] CO2 [Moles/Vol] 15.7 mmol/L Low 21.0-32.0 [facility] Comment on above: Performed By: #### L 500.2500 ####[facility] [address] [place], [address] Creatinine [Mass/Vol] 0.74 mg/dL Normal 0.70-1.20 [facility] Comment on above: Performed By: #### L 500.2500 ####[facility] [address] [place], [address] ECRCL 116.17 ml/min Normal 50-250 [facility] Comment on above: Performed By: #### L 500.2500 ####[facility] [address] [place], [address] GAP 18 High 5-15 [facility] Comment on above: Performed By: #### L 500.2500 ####[facility] [address] [place], [address] GFR/1.73 sq M.predicted among non-blacks MDRD (S/P/Bld) [Vol rate/Area] 111 mL/min/{1.73_m2} Normal >60 [facility] Comment on above: Result Comment: mL/m in/1.73m2 CKD-EPI Creatinine Equation (2020) Performed By: #### L 500.2500 ####[facility] [address] [place], [address] Glucose [Mass/Vol] 176 mg/dL High 70-99 [facility] Comment on above: Performed By: #### L 500.2500 ####[facility] [address] [place], [address] Potassium [Moles/Vol] 4.8 mmol/L Normal 3.3-5.1 [facility] Comment on above: Performed By: #### L 500.2500 ####[facility] [address] [place], [address] Sodium [Moles/Vol] 133 mmol/L Normal 133-145 [facility] Comment on above: Performed By: #### L 500.2500 ####[facility] [address] [place], [address] Urea nitrogen [Mass/Vol] 14 mg/dL Normal 4-19 [facility] Comment on above: Performed By: #### L 500.2500 ####[facility] [address] [place], [address] BUN Normal 4-19 [facility] Comment on above: Result Comment: DUPL ICATE Performed By: #### L 500.2500 ####[facility] [address] [place], [address] BUN/CRE Normal 10-20 [facility] Comment on above: Result Comment: DUPL ICATE Performed By: #### L 500.2500 ####[facility] [address] [place], [address] Calcium Normal 7.6-11.0 [facility] Comment on above: Result Comment: DUPL ICATE Performed By: #### L 500.2500 ####[facility] [address] [place], [address] CL Normal 98-108 [facility] Comment on above: Result Comment: DUPL ICATE Performed By: #### L 500.2500 ####[facility] [address] [place], [address] CO2 Normal 21.0-32.0 [facility] Comment on above: Result Comment: DUPL ICATE Performed By: #### L 500.2500 ####[facility] [address] [place], [address] CREAT,SERUM Normal 0.70-1.20 [facility] Comment on above: Result Comment: DUPL ICATE Performed By: #### L 500.2500 ####[facility] [address] [place], [address] eGFR Normal >60 [facility] Comment on above: Result Comment: DUPL ICATE Performed By: #### L 500.2500 ####[facility] [address] [place], [address] GAP Normal 5-15 [facility] Comment on above: Result Comment: DUPL ICATE Performed By: #### L 500.2500 ####[facility] [address] [place], [address] GLU Normal 70-99 [facility] Comment on above: Result Comment: DUPL ICATE Performed By: #### L 500.2500 ####[facility] [address] [place], [address] Potassium Normal 3.3-5.1 [facility] Comment on above: Result Comment: DUPL ICATE Performed By: #### L 500.2500 ####[facility] [address] [place], [address] Basic Metabolic Profile (BMP) Normal 133-145 [facility] Comment on above: Result Comment: DUPL ICATE Performed By: #### L 500.2500 ####[facility] [address] [place], [address] Bedside Glucoseon 11-05-2024 FINGERSTICK GLU 109 mg/dL High 74-106 [facility] Comment on above: Result Comment: EDGAR HUNG OF PATIENT CARE PER NURSING PROTOCOL Performed By: #### L 501.080 ####[facility] [address] [place], [address] FINGERSTICK GLU 222 mg/dL High 74-106 [facility] Comment on above: Result Comment: EDGAR HUNG OF PATIENT CARE PER NURSING PROTOCOL Performed By: #### L 501.080 ####[facility] [address] [place], [address] [facility] GEM TEST Positive Normal [facility] Comment on above: Performed By: #### L 9000.0800 ####[facility] [address] [place], [address] Base excess Calc (Bld) [Moles/Vol] -5 mmol/L Low -2 to +2 [facility] Comment on above: Performed By: #### L 9000.0800 ####[facility] [address] [place], [address] Blood Gas Type ART Normal [facility] Comment on above: Performed By: #### L 9000.0800 ####[facility] [address] [place], [address] CO2 [Moles/Vol] 21 mmol/L Normal [facility] Comment on above: Performed By: #### L 9000.0800 ####[facility] [address] [place], [address] HCO3 (Bld) [Moles/Vol] 19.9 mmol/L Low 22-26 [facility] Comment on above: Performed By: #### L 9000.0800 ####[facility] [address] [place], [address] Mode Not entered Normal [facility] Comment on above: Performed By: #### L 9000.0800 ####[facility] [address] [place], [address] O2 Delivery Dev Room Air Normal [facility] Comment on above: Performed By: #### L 9000.0800 ####[facility] [address] [place], [address] pCO2 31.1 mmHg Low 35-45 [facility] Comment on above: Performed By: #### L 9000.0800 ####[facility] [address] [place], [address] pH (Bld) 7.42 [pH] Normal 7.35-7.45 [facility] Comment on above: Performed By: #### L 9000.0800 ####[facility] [address] [place], [address] PO2 89 mmHG Normal 75-100 [facility] Comment on above: Performed By: #### L 9000.0800 ####[facility] [address] [place], [address] SITE L Radial Normal [facility] Comment on above: Performed By: #### L 9000.0800 ####[facility] [address] [place], [address] SO2 97 Normal 95-99 [facility] Comment on above: Performed By: #### L 9000.0800 ####[facility] [address] [place], [address] CBC W/Diff, Automatedon 10-26 Absolute Lymph 0.93 X10 3/uL Normal 0.83-4.51 [facility] Comment on above: Performed By: #### L 503.6005, L500.4050, L100.0100, L501.2450, L700.6800 ####[facility] [address] [place], [address] Absolute Neut 13.4 X10 3/uL High 2.0-7.7 [facility] Comment on above: Performed By: #### L 503.6005, L500.4050, L100.0100, L501.2450, L700.6800 ####[facility] [address] [place], [address] Basophils/100 WBC (Bld) 0.2 % Normal 0-1 [facility] Comment on above: Performed By: #### L 503.6005, L500.4050, L100.0100, L501.2450, L700.6800 ####[facility] [address] [place], [address] Eosinophils/100 WBC (Bld) 0.0 % Normal 0-5 [facility] Comment on above: Performed By: #### L 503.6005, L500.4050, L100.0100, L501.2450, L700.6800 ####[facility] [address] [place], [address] Erythrocyte distribution width (RBC) [Ratio] 13.6 % Normal 11.6-14.6 [facility] Comment on above: Performed By: #### L 503.6005, L500.4050, L100.0100, L501.2450, L700.6800 ####[facility] [address] [place], [address] Hematocrit (Bld) [Volume fraction] 38.0 % Normal 37-47 [facility] Comment on above: Performed By: #### L 503.6005, L500.4050, L100.0100, L501.2450, L700.6800 ####[facility] [address] [place], [address] Hemoglobin (Bld) [Mass/Vol] 12.7 g/dL Normal 12.0-15.0 [facility] Comment on above: Performed By: #### L 503.6005, L500.4050, L100.0100, L501.2450, L700.6800 ####[facility] [address] [place], [address] IG% 1.000 High 0.0-0.9 [facility] Comment on above: Result Comment: IG% - Immature Granulocytes (promyelocytes, myelocytes andmetamyelocytes) > 1% indicates that a LEFT SHIFT is Present. Performed By: #### L 503.6005, L500.4050, L100.0100, L501.2450, L700.6800 ####[facility] [address] [place], [address] Lymphocytes/100 WBC (Bld) 6.1 % Low 19-41 [facility] Comment on above: Performed By: #### L 503.6005, L500.4050, L100.0100, L501.2450, L700.6800 ####[facility] [address] [place], [address] MCH (RBC) [Entitic mass] 29.9 pg Normal 27.0-32.0 [facility] Comment on above: Performed By: #### L 503.6005, L500.4050, L100.0100, L501.2450, L700.6800 ####[facility] [address] [place], [address] MCHC (RBC) [Mass/Vol] 33.4 g/dL Normal 32-36 [facility] Comment on above: Performed By: #### L 503.6005, L500.4050, L100.0100, L501.2450, L700.6800 ####[facility] [address] [place], [address] MCV (RBC) [Entitic vol] 89.4 fL Normal 81-99 [facility] Comment on above: Performed By: #### L 503.6005, L500.4050, L100.0100, L501.2450, L700.6800 ####[facility] [address] [place], [address] Monocytes/100 WBC (Bld) 4.7 % Normal 0-10 [facility] Comment on above: Performed By: #### L 503.6005, L500.4050, L100.0100, L501.2450, L700.6800 ####[facility] [address] [place], [address] Neutrophils/100 WBC (Bld) 88.0 % High 47-70 [facility] Comment on above: Performed By: #### L 503.6005, L500.4050, L100.0100, L501.2450, L700.6800 ####[facility] [address] [place], [address] Nucleated RBC (Bld) [#/Vol] 0 10*3/uL Normal 0-5 [facility] Comment on above: Performed By: #### L 503.6005, L500.4050, L100.0100, L501.2450, L700.6800 ####[facility] [address] [place], [address] Platelet mean volume (Bld) [Entitic vol] 11.7 fL Normal 6.2-12.0 [facility] Comment on above: Performed By: #### L 503.6005, L500.4050, L100.0100, L501.2450, L700.6800 ####[facility] [address] [place], [address] Platelets (Bld) [#/Vol] 201 10*3/uL Normal 150-450 [facility] Comment on above: Performed By: #### L 503.6005, L500.4050, L100.0100, L501.2450, L700.6800 ####[facility] [address] [place], [place], [phone] RBC (Bld) [#/Vol] 4.25 10*6/uL Normal 4.2-5.4 [facility] Comment on above: Performed By: #### L 503.6005, L500.4050, L100.0100, L501.2450, L700.6800 ####[facility] [address] [place], [place], [phone] RDW SD 44.6 fl High 35.1-43.9 [facility] Comment on above: Performed By: #### L 503.6005, L500.4050, L100.0100, L501.2450, L700.6800 ####[facility] [address] [place], [place], [phone] WBC (Bld) [#/Vol] 15.2 10*3/uL High 4.4-11.0 [facility] Comment on above: Performed By: #### L 503.6005, L500.4050, L100.0100, L501.2450, L700.6800 ####[facility] [address] [place], [place], [id number] [facility] KATHLEEN VILLA ([id number]) 1995 F T Date Time Provider Department 11/05/24 LETICIA HYLTON [facility] During your visit today, we recorded [...] Units subcutaneously every 24 hours. 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 Normal [facility] Metabolic Prof caon 11-05-2024 Albumin [Mass/Vol] 4.1 g/dL Normal 3.5-5.0 [facility] Comment on above: Performed By: #### L 503.6005, L500.4050, L100.0100, L501.2450, L700.6800 ####[facility] [address] [place], [address] Albumin/Globulin [Mass ratio] 1.5 {ratio} Normal 0.9-2.4 [facility] Comment on above: Performed By: #### L 503.6005, L500.4050, L100.0100, L501.2450, L700.6800 ####[facility] [address] [place], [address] ALK PHOS 89 U/L Normal 35-104 [facility] Comment on above: Performed By: #### L 503.6005, L500.4050, L100.0100, L501.2450, L700.6800 ####[facility] [address] [place], [address] ALT [Catalytic activity/Vol] 17 U/L Normal <=34 [facility] Comment on above: Performed By: #### L 503.6005, L500.4050, L100.0100, L501.2450, L700.6800 ####[facility] [address] [place], [address] AST [Catalytic activity/Vol] 21 U/L Normal <=31 [facility] Comment on above: Performed By: #### L 503.6005, L500.4050, L100.0100, L501.2450, L700.6800 ####[facility] [address] [place], [address] Bilirubin [Mass/Vol] 1.15 mg/dL Normal 0.00-1.30 [facility] Comment on above: Performed By: #### L 503.6005, L500.4050, L100.0100, L501.2450, L700.6800 ####[facility] [address] [place], [address] BUN/CRE 18.4 RATIO Normal 10-20 [facility] Comment on above: Performed By: #### L 503.6005, L500.4050, L100.0100, L501.2450, L700.6800 ####[facility] [address] [place], [address] Calcium [Mass/Vol] 8.2 mg/dL Normal 7.6-11.0 [facility] Comment on above: Performed By: #### L 503.6005, L500.4050, L100.0100, L501.2450, L700.6800 ####[facility] [address] [place], [address] Chloride [Moles/Vol] 94 mmol/L Low 98-108 [facility] Comment on above: Performed By: #### L 503.6005, L500.4050, L100.0100, L501.2450, L700.6800 ####[facility] [address] [place], [address] CO2 [Moles/Vol] 12.8 mmol/L Low 21.0-32.0 [facility] Comment on above: Performed By: #### L 503.6005, L500.4050, L100.0100, L501.2450, L700.6800 ####[facility] [address] [place], [address] Creatinine [Mass/Vol] 0.86 mg/dL Normal 0.70-1.20 [facility] Comment on above: Performed By: #### L 503.6005, L500.4050, L100.0100, L501.2450, L700.6800 ####[facility] [address] [place], [address] ECRCL 99.96 ml/min Normal 50-250 [facility] Comment on above: Performed By: #### L 503.6005, L500.4050, L100.0100, L501.2450, L700.6800 ####[facility] [address] [place], [address] GAP 27 High 5-15 [facility] Comment on above: Performed By: #### L 503.6005, L500.4050, L100.0100, L501.2450, L700.6800 ####[facility] [address] [place], [address] GFR/1.73 sq M.predicted among non-blacks MDRD (S/P/Bld) [Vol rate/Area] 93 mL/min/{1.73_m2} Normal >60 [facility] Comment on above: Result Comment: mL/m in/1.73m2 CKD-EPI Creatinine Equation (2020) Performed By: #### L 503.6005, L500.4050, L100.0100, L501.2450, L700.6800 ####[facility] [address] [place], [address] Globulin (S) [Mass/Vol] 2.8 g/dL Normal 2.2-4.2 [facility] Comment on above: Performed By: #### L 503.6005, L500.4050, L100.0100, L501.2450, L700.6800 ####[facility] [address] [place], [address] Glucose [Mass/Vol] 251 mg/dL High 70-99 [facility] Comment on above: Performed By: #### L 503.6005, L500.4050, L100.0100, L501.2450, L700.6800 ####[facility] [address] [place], [address] Potassium [Moles/Vol] 3.0 mmol/L Low 3.3-5.1 [facility] Comment on above: Performed By: #### L 503.6005, L500.4050, L100.0100, L501.2450, L700.6800 ####[facility] [address] [place], [address] Sodium [Moles/Vol] 134 mmol/L Normal 133-145 [facility] Comment on above: Performed By: #### L 503.6005, L500.4050, L100.0100, L501.2450, L700.6800 ####[facility] [address] [place], [address] T PROT 6.9 g/dL Normal 5.9-8.4 [facility] Comment on above: Performed By: #### L 503.6005, L500.4050, L100.0100, L501.2450, L700.6800 ####[facility] [address] [place], [address] Urea nitrogen [Mass/Vol] 16 mg/dL Normal 4-19 [facility] Comment on above: Performed By: #### L 503.6005, L500.4050, L100.0100, L501.2450, L700.6800 ####[facility] [address] [place], [address] Emergency Department Summary on 11-05-2024 Emergency Department Summary Normal [facility] Gallbladderon 11-05-2024 Gallbladder Normal [facility] H AND P Exam - Hospitaliston 11-05-2024 H&P Exam - Hospitalist Normal [facility] L501.6901on 11-05-2024 BETA-HYDROXYBUT 7.1 mmol/L Normal 0.0-0.3 [facility] Comment on above: Performed By: #### L 501.6901 ####[facility] [address] [place], [address] Lactic Acidon 11-05-2024 Lactate [Moles/Vol] mmol/L Normal 0.0-2.0 [facility] Comment on above: Order Comment: Y Performed By: #### L 503.6005, L500.4050, L100.0100, L501.2450, L700.6800 ####[facility] [address] [place], [address] Lipaseon 11-05-2024 Lipase [Catalytic activity/Vol] 13 U/L Normal 13-75 [facility] Comment on above: Result Comment: Sulma schmitz note:LIPASE revised reference range effective 22.New Lipase methodology. Expected to produce lower valuesthan the previous assay method.NEW Reference Range: 13 - 75 U/L Performed By: #### L 503.6005, L500.4050, L100.0100, L501.2450, L700.6800 ####[facility] [address] [place], [address] ,Serum,hCG Quali.on 11-05-2024 HCG, SERUM QUAL Negative Normal [facility] Comment on above: Performed By: #### L 503.6005, L500.4050, L100.0100, L501.2450, L700.6800 ####[facility] [address] [place], [address] Urinalysis, Completeon 11-05 BACTERIA 1+ /hpf Normal None Seen [facility] Comment on above: Order Comment: CLEAN CATCH Performed By: #### L 400.0001 ####[facility] [address] [place], [address] EPI,SQUAMOUS 0-5 SEEN Normal 5-10 [facility] Comment on above: Order Comment: CLEAN CATCH Performed By: #### L 400.0001 ####[facility] [address] [place], [address] WBC 0-5 SEEN Normal 0-5 [facility] Comment on above: Order Comment: CLEAN CATCH Performed By: #### L 400.0001 ####[facility] [address] [place], [address] RBC 0 SEEN Normal 0-5 [facility] Comment on above: Order Comment: CLEAN CATCH Performed By: #### L 400.0001 ####[facility] [address] [place], [address] Mucus Ql (Urine sed) 0 SEEN Normal [facility] Comment on above: Order Comment: CLEAN CATCH Performed By: #### L 400.0001 ####[facility] [address] [place], [address] Venous Blood Gason 5 Blood Gas Type ISABELLE Normal [facility] Comment on above: Performed By: #### L 9000.0810 ####[facility] [address] [place], [address] CO2 [Moles/Vol] 14 mmol/L Low 23-33 [facility] Comment on above: Performed By: #### L 9000.0810 ####[facility] [address] [place], [address] HCO3 (Bld) [Moles/Vol] 14 mmol/L Low 22-26 [facility] Comment on above: Performed By: #### L 9000.0810 ####[facility] [address] [place], [address] O2 Delivery Dev Not entered Normal [facility] Comment on above: Performed By: #### L 9000.0810 ####[facility] [address] [place], [address] SITE Not entered Normal [facility] Comment on above: Performed By: #### L 9000.0810 ####[facility] [address] [place], [address] VBG BE -11 mmol/L Low -1.0-3.5 [facility] Comment on above: Performed By: #### L 9000.0810 ####[facility] [address] [place], [address] VBG pCO2 20.7 mmHg Low 41-51 [facility] Comment on above: Performed By: #### L 9000.0810 ####[facility] [address] [place], [address] VBG pH 7.43 High 7.32-7.42 [facility] Comment on above: Performed By: #### L 9000.0810 ####[facility] [address] [place], [address] VBG PO2 68 mmHg High 25-40 [facility] Comment on above: Performed By: #### L 9000.0810 ####[facility] [address] [place], [address] VBG SO2 95 High 50-70 [facility] Comment on above: Performed By: #### L 9000.0810 ####[facility] [address] [place], [address] L501.6901on 11-04-2024 BETA-HYDROXYBUT 1.5 mmol/L Normal 0.0-0.3 [facility] Comment on above: Performed By: #### L 501.6901 ####[facility] [address] [place], [address] Venous Blood Gason 5 CO2 [Moles/Vol] 20 mmol/L Low 23-33 [facility] Comment on above: Performed By: #### L 9000.0810 ####[facility] [address] [place], [address] HCO3 (Bld) [Moles/Vol] 19 mmol/L Low 22-26 [facility] Comment on above: Performed By: #### L 9000.0810 ####[facility] [address] [place], [address] VBG SO2 94 High 50-70 [facility] Comment on above: Performed By: #### L 9000.0810 ####[facility] [address] [place], [address] Blood Gas Type ISABELLE Normal [facility] Comment on above: Performed By: #### L 9000.0810 ####[facility] [address] [place], [address] VBG pCO2 30.3 mmHg Low 41-51 [facility] Comment on above: Performed By: #### L 9000.0810 ####[facility] [address] [place], [address] VBG pH 7.40 Normal 7.32-7.42 [facility] Comment on above: Performed By: #### L 9000.0810 ####[facility] [address] [place], [address] VBG PO2 71 mmHg High 25-40 [facility] Comment on above: Performed By: #### L 9000.0810 ####[facility] [address] [place], [address] Abdomen/Pelvis W IV Cont ONL Yon 11-03-2024 Abdomen/Pelvis W IV Cont ONLY Normal [facility] CBC W/Diff, Automatedon Absolute Lymph 1.92 X10 3/uL Normal 0.83-4.51 [facility] Comment on above: Performed By: #### L 501.2450, L100.0100, L500.4050 ####[facility] [address] [place], [address] Absolute Neut 8.4 X10 3/uL High 2.0-7.7 [facility] Comment on above: Performed By: #### L 501.2450, L100.0100, L500.4050 ####[facility] [address] [place], [address] Basophils/100 WBC (Bld) 0.5 % Normal 0-1 [facility] Comment on above: Performed By: #### L 501.2450, L100.0100, L500.4050 ####[facility] [address] [place], [address] Eosinophils/100 WBC (Bld) 0.3 % Normal 0-5 [facility] Comment on above: Performed By: #### L 501.2450, L100.0100, L500.4050 ####[facility] [address] [place], [address] Erythrocyte distribution width (RBC) [Ratio] 13.2 % Normal 11.6-14.6 [facility] Comment on above: Performed By: #### L 501.2450, L100.0100, L500.4050 ####[facility] [address] [place], [address] Hematocrit (Bld) [Volume fraction] 42.1 % Normal 37-47 [facility] Comment on above: Performed By: #### L 501.2450, L100.0100, L500.4050 ####[facility] [address] [place], [address] Hemoglobin (Bld) [Mass/Vol] 14.2 g/dL Normal 12.0-15.0 [facility] Comment on above: Performed By: #### L 501.2450, L100.0100, L500.4050 ####[facility] [address] [place], [address] IG% 0.800 Normal 0.0-0.9 [facility] Comment on above: Result Comment: IG% - Immature Granulocytes (promyelocytes, myelocytes andmetamyelocytes) > 1% indicates that a LEFT SHIFT is Present. Performed By: #### L 501.2450, L100.0100, L500.4050 ####[facility] [address] [place], [address] Lymphocytes/100 WBC (Bld) 17.5 % Low 19-41 [facility] Comment on above: Performed By: #### L 501.2450, L100.0100, L500.4050 ####[facility] [address] [place], [address] MCH (RBC) [Entitic mass] 29.3 pg Normal 27.0-32.0 [facility] Comment on above: Performed By: #### L 501.2450, L100.0100, L500.4050 ####[facility] [address] [place], [address] MCHC (RBC) [Mass/Vol] 33.7 g/dL Normal 32-36 [facility] Comment on above: Performed By: #### L 501.2450, L100.0100, L500.4050 ####[facility] [address] [place], [address] MCV (RBC) [Entitic vol] 87.0 fL Normal 81-99 [facility] Comment on above: Performed By: #### L 501.2450, L100.0100, L500.4050 ####[facility] [address] [place], [address] Monocytes/100 WBC (Bld) 4.6 % Normal 0-10 [facility] Comment on above: Performed By: #### L 501.2450, L100.0100, L500.4050 ####[facility] [address] [place], [address] Neutrophils/100 WBC (Bld) 76.3 % High 47-70 [facility] Comment on above: Performed By: #### L 501.2450, L100.0100, L500.4050 ####[facility] [address] [place], [address] Nucleated RBC (Bld) [#/Vol] 0 10*3/uL Normal 0-5 [facility] Comment on above: Performed By: #### L 501.2450, L100.0100, L500.4050 ####[facility] [address] [place], [address] Platelet mean volume (Bld) [Entitic vol] 12.4 fL High 6.2-12.0 [facility] Comment on above: Performed By: #### L 501.2450, L100.0100, L500.4050 ####[facility] [address] [place], [address] Platelets (Bld) [#/Vol] 263 10*3/uL Normal 150-450 [facility] Comment on above: Performed By: #### L 501.2450, L100.0100, L500.4050 ####[facility] [address] [place], [address] RBC (Bld) [#/Vol] 4.84 10*6/uL Normal 4.2-5.4 [facility] Comment on above: Performed By: #### L 501.2450, L100.0100, L500.4050 ####[facility] [address] [place], [address] RDW SD 41.6 fl Normal 35.1-43.9 [facility] Comment on above: Performed By: #### L 501.2450, L100.0100, L500.4050 ####[facility] [address] [place], [address] WBC (Bld) [#/Vol] 11.0 10*3/uL Normal 4.4-11.0 [facility] Comment on above: Performed By: #### L 501.2450, L100.0100, L500.4050 ####[facility] [address] [place], [address] Comprehensive Metabolic Prof caon 11-03-2024 Albumin [Mass/Vol] 4.7 g/dL Normal 3.5-5.0 [facility] Comment on above: Performed By: #### L 501.2450, L100.0100, L500.4050 ####[facility] [address] [place], [address] Albumin/Globulin [Mass ratio] 1.4 {ratio} Normal 0.9-2.4 [facility] Comment on above: Performed By: #### L 501.2450, L100.0100, L500.4050 ####[facility] [address] [place], [address] ALK PHOS 101 U/L Normal 35-104 [facility] Comment on above: Performed By: #### L 501.2450, L100.0100, L500.4050 ####[facility] [address] [place], [address] ALT [Catalytic activity/Vol] 22 U/L Normal <=34 [facility] Comment on above: Performed By: #### L 501.2450, L100.0100, L500.4050 ####[facility] [address] [place], [address] AST [Catalytic activity/Vol] 20 U/L Normal <=31 [facility] Comment on above: Result Comment: Hemo lysis present, Results??could be affected.?? Performed By: #### L 501.2450, L100.0100, L500.4050 ####[facility] [address] [place], [address] Bilirubin [Mass/Vol] 0.98 mg/dL Normal 0.00-1.30 [facility] Comment on above: Performed By: #### L 501.2450, L100.0100, L500.4050 ####[facility] [address] [place], [address] BUN/CRE 17.6 RATIO Normal 10-20 [facility] Comment on above: Performed By: #### L 501.2450, L100.0100, L500.4050 ####[facility] [address] [place], [address] Calcium [Mass/Vol] 9.9 mg/dL Normal 7.6-11.0 [facility] Comment on above: Performed By: #### L 501.2450, L100.0100, L500.4050 ####[facility] [address] [place], [address] Chloride [Moles/Vol] 97 mmol/L Low 98-108 [facility] Comment on above: Performed By: #### L 501.2450, L100.0100, L500.4050 ####[facility] [address] [place], [address] CO2 [Moles/Vol] 18.2 mmol/L Low 21.0-32.0 [facility] Comment on above: Performed By: #### L 501.2450, L100.0100, [id number] ####[facility] [address] [place], [address] Creatinine [Mass/Vol] 0.84 mg/dL Normal 0.70-1.20 [facility] Comment on above: Performed By: #### L 501.2450, L100.0100, [id number] ####[facility] [address] [place], [address] ECRCL 102.34 ml/min Normal 50-250 [facility] Comment on above: Performed By: #### L 501.2450, L100.0100, [id number] ####[facility] [address] [place], [address] GAP 18 High 5-15 [facility] Comment on above: Performed By: #### L 501.2450, L100.0100, [id number] ####[facility] [address] [place], [address] GFR/1.73 sq M.predicted among non-blacks MDRD (S/P/Bld) [Vol rate/Area] 96 mL/min/{1.73_m2} Normal >60 [facility] Comment on above: Result Comment: mL/m in/1.73m2 CKD-EPI Creatinine Equation (2020) Performed By: #### L 501.2450, L100.0100, L500.4050 ####[facility] [address] [place], [address] Globulin (S) [Mass/Vol] 3.3 g/dL Normal 2.2-4.2 [facility] Comment on above: Performed By: #### L 501.2450, L100.0100, L500.4050 ####[facility] [address] [place], [address] Glucose [Mass/Vol] 375 mg/dL High 70-99 [facility] Comment on above: Performed By: #### L 501.2450, L100.0100, L500.4050 ####[facility] [address] [place], [address] Potassium [Moles/Vol] 4.4 mmol/L Normal 3.3-5.1 [facility] Comment on above: Result Comment: Hemo lysis present, Results??could be affected.?? Performed By: #### L 501.2450, L100.0100, L500.4050 ####[facility] [address] [place], [address] Sodium [Moles/Vol] 133 mmol/L Normal 133-145 [facility] Comment on above: Performed By: #### L 501.2450, L100.0100, L500.4050 ####[facility] [address] [place], [address] T PROT 7.9 g/dL Normal 5.9-8.4 [facility] Comment on above: Performed By: #### L 501.2450, L100.0100, L500.4050 ####[facility] [address] [place], [address] Urea nitrogen [Mass/Vol] 15 mg/dL Normal 4-19 [facility] Comment on above: Performed By: #### L 501.2450, L100.0100, L500.4050 ####[facility] [address] [place], [address] Emergency Department Summary on 11-03-2024 Emergency Department Summary Normal [facility] Lipaseon 11-03-2024 Lipase [Catalytic activity/Vol] 14 U/L Normal 13-75 [facility] Comment on above: Result Comment: Sulma schmitz note:LIPASE revised reference range effective 22.New Lipase methodology. Expected to produce lower valuesthan the previous assay method.NEW Reference Range: 13 - 75 U/L Performed By: #### L 501.2450, L100.0100, L500.4050 ####[facility] [address] [place], [address] Urinalysis, Completeon 11-03 BACTERIA RARE Normal None Seen [facility] Comment on above: Order Comment: CLEAN CATCH Performed By: #### L 400.0001 ####[facility] [address] [place], [address] EPI,SQUAMOUS 0-5 SEEN Normal 5-10 [facility] Comment on above: Order Comment: CLEAN CATCH Performed By: #### L 400.0001 ####[facility] [address] [place], [address] RBC 0 SEEN Normal 0-5 [facility] Comment on above: Order Comment: CLEAN CATCH Performed By: #### L 400.0001 ####[facility] [address] [place], [address] WBC 0-5 SEEN Normal 0-5 [facility] Comment on above: Order Comment: CLEAN CATCH Performed By: #### L 400.0001 ####[facility] [address] [place], [address] BILIRUBIN URINE Negative Normal Negative [facility] Comment on above: Order Comment: CLEAN CATCH Performed By: #### L 400.0001 ####[facility] [address] [place], [address] Clarity (U) Turbid Normal Clear [facility] Comment on above: Order Comment: CLEAN CATCH Performed By: #### L 400.0001 ####[facility] [address] [place], [address] Color (U) Straw Normal Yellow [facility] Comment on above: Order Comment: CLEAN CATCH Performed By: #### L 400.0001 ####[facility] [address] [place], [address] GLUCOSE, UR 1000 mg/dl Abnormal Normal [facility] Comment on above: Order Comment: CLEAN CATCH Performed By: #### L 400.0001 ####[facility] [address] [place], [address] KETONE UR 50 mg/dl Abnormal Negative [facility] Comment on above: Order Comment: CLEAN CATCH Performed By: #### L 400.0001 ####[facility] [address] [place], [address] LEUK ESTERASE Negative Normal Negative [facility] Comment on above: Order Comment: CLEAN CATCH Performed By: #### L 400.0001 ####[facility] [address] [place], [address] Nitrite Ql (U) Negative Normal Negative [facility] Comment on above: Order Comment: CLEAN CATCH Performed By: #### L 400.0001 ####[facility] [address] [place], [address] OCCULT BLOOD-UR Negative Normal Negative [facility] Comment on above: Order Comment: CLEAN CATCH Performed By: #### L 400.0001 ####[facility] [address] [place], [address] pH UR 6.0 Normal 5.0 - 8.0 [facility] Comment on above: Order Comment: CLEAN CATCH Performed By: #### L 400.0001 ####[facility] [address] [place], [address] PROT DIPSTX Negative Normal Negative [facility] Comment on above: Order Comment: CLEAN CATCH Performed By: #### L 400.0001 ####[facility] [address] [place], [address] SP.GR. DIPSTX 1.015 Normal 1.002-1.030 [facility] Comment on above: Order Comment: CLEAN CATCH Performed By: #### L 400.0001 ####[facility] [address] [place], [address] UROBILI Normal Normal Normal [facility] Comment on above: Order Comment: CLEAN CATCH Performed By: #### L 400.0001 ####[facility] [address] [place], [address] Mucus Ql (Urine sed) 0 SEEN Normal [facility] Comment on above: Order Comment: CLEAN CATCH Performed By: #### L 400.0001 ####[facility] [address] [place], [address] Basic Metabolic Profile (BMP )on 10-27-2024 BUN Normal 7-18 [facility] Comment on above: Result Comment: Canc elled via OM: Order cancelled - Patient discharged Performed By: #### L 100.0100, L500.2500 ####[facility] [address] [place], [address] BUN/CRE Normal 10-20 [facility] Comment on above: Result Comment: Canc elled via OM: Order cancelled - Patient discharged Performed By: #### L 100.0100, L500.2500 ####[facility] [address] [place], [address] CA,Total Normal 8.5-10.1 [facility] Comment on above: Result Comment: Canc elled via OM: Order cancelled - Patient discharged Performed By: #### L 100.0100, L500.2500 ####[facility] [address] [place], [address] CL Normal 98-107 [facility] Comment on above: Result Comment: Canc elled via OM: Order cancelled - Patient discharged Performed By: #### L 100.0100, L500.2500 ####[facility] [address] [place], [address] CO2 Normal 21.0-32.0 [facility] Comment on above: Result Comment: Canc elled via OM: Order cancelled - Patient discharged Performed By: #### L 100.0100, L500.2500 ####[facility] [address] [place], [address] CREAT,SERUM Normal 0.55-1.02 [facility] Comment on above: Result Comment: Canc elled via OM: Order cancelled - Patient discharged Performed By: #### L 100.0100, L500.2500 ####[facility] [address] [place], [address] EST GFR Normal >60 [facility] Comment on above: Result Comment: Canc elled via OM: Order cancelled - Patient discharged Performed By: #### L 100.0100, L500.2500 ####[facility] [address] [place], [address] EST GFR - AA Normal >60 [facility] Comment on above: Result Comment: Canc elled via OM: Order cancelled - Patient discharged Performed By: #### L 100.0100, L500.2500 ####[facility] [address] [place], [address] GAP Normal 5-15 [facility] Comment on above: Result Comment: Canc elled via OM: Order cancelled - Patient discharged Performed By: #### L 100.0100, L500.2500 ####[facility] [address] [place], [address] GLU Normal 74-106 [facility] Comment on above: Result Comment: Canc elled via OM: Order cancelled - Patient discharged Performed By: #### L 100.0100, L500.2500 ####[facility] [address] [place], [address] Potassium Normal 3.5-5.1 [facility] Comment on above: Result Comment: Canc elled via OM: Order cancelled - Patient discharged Performed By: #### L 100.0100, L500.2500 ####[facility] [address] [place], [address] Basic Metabolic Profile (BMP) Normal 136-145 [facility] Comment on above: Result Comment: Canc elled via OM: Order cancelled - Patient discharged Performed By: #### L 100.0100, L500.2500 ####[facility] [address] [place], [address] CBC W/Diff, Automatedon 03-0 -2024 Absolute Neut Normal 2.0-7.7 [facility] Comment on above: Result Comment: Canc elled via OM: Order cancelled - Patient discharged Performed By: #### L 100.0100, L500.2500 ####[facility] [address] [place], [address] HCT Normal 37-47 [facility] Comment on above: Result Comment: Canc elled via OM: Order cancelled - Patient discharged Performed By: #### L 100.0100, L500.2500 ####[facility] [address] [place], [address] HGB Normal 12.0-15.0 [facility] Comment on above: Result Comment: Canc elled via OM: Order cancelled - Patient discharged Performed By: #### L 100.0100, L500.2500 ####[facility] [address] [place], [address] MCH Normal 27.0-32.0 [facility] Comment on above: Result Comment: Canc elled via OM: Order cancelled - Patient discharged Performed By: #### L 100.0100, L500.2500 ####[facility] [address] [place], [address] MCHC Normal 32-36 [facility] Comment on above: Result Comment: Canc elled via OM: Order cancelled - Patient discharged Performed By: #### L 100.0100, L500.2500 ####[facility] [address] [place], [address] MCV Normal 81-99 [facility] Comment on above: Result Comment: Canc elled via OM: Order cancelled - Patient discharged Performed By: #### L 100.0100, L500.2500 ####[facility] [address] [place], [address] NEUT% Normal 47-70 [facility] Comment on above: Result Comment: Canc elled via OM: Order cancelled - Patient discharged Performed By: #### L 100.0100, L500.2500 ####[facility] [address] [place], [address] PLT Normal 150-450 [facility] Comment on above: Result Comment: Canc elled via OM: Order cancelled - Patient discharged Performed By: #### L 100.0100, L500.2500 ####[facility] [address] [place], [address] RBC Normal 4.2-5.4 [facility] Comment on above: Result Comment: Canc elled via OM: Order cancelled - Patient discharged Performed By: #### L 100.0100, L500.2500 ####[facility] [address] [place], [address] RDW CV Normal 11.6-14.6 [facility] Comment on above: Result Comment: Canc elled via OM: Order cancelled - Patient discharged Performed By: #### L 100.0100, L500.2500 ####[facility] [address] [place], [address] RDW SD Normal 35.1-43.9 [facility] Comment on above: Result Comment: Canc elled via OM: Order cancelled - Patient discharged Performed By: #### L 100.0100, L500.2500 ####[facility] [address] [place], [address] WBC Normal 4.4-11.0 [facility] Comment on above: Result Comment: Canc elled via OM: Order cancelled - Patient discharged Performed By: #### L 100.0100, L500.2500 ####[facility] [address] [place], [address] Basic Metabolic Profile (BMP )on 10-26-2024 BUN Normal 7-18 [facility] Comment on above: Result Comment: Canc elled via OM: Order cancelled - Patient discharged Performed By: #### L 100.0100, L500.2500 ####[facility] [address] [place], [address] BUN/CRE Normal 10-20 [facility] Comment on above: Result Comment: Canc elled via OM: Order cancelled - Patient discharged Performed By: #### L 100.0100, L500.2500 ####[facility] [address] [place], [address] CA,Total Normal 8.5-10.1 [facility] Comment on above: Result Comment: Canc elled via OM: Order cancelled - Patient discharged Performed By: #### L 100.0100, L500.2500 ####[facility] [address] [place], [address] CL Normal 98-107 [facility] Comment on above: Result Comment: Canc elled via OM: Order cancelled - Patient discharged Performed By: #### L 100.0100, L500.2500 ####[facility] [address] [place], [address] CO2 Normal 21.0-32.0 [facility] Comment on above: Result Comment: Canc elled via OM: Order cancelled - Patient discharged Performed By: #### L 100.0100, L500.2500 ####[facility] [address] [place], [address] CREAT,SERUM Normal 0.55-1.02 [facility] Comment on above: Result Comment: Canc elled via OM: Order cancelled - Patient discharged Performed By: #### L 100.0100, L500.2500 ####[facility] [address] [place], [address] EST GFR Normal >60 [facility] Comment on above: Result Comment: Canc elled via OM: Order cancelled - Patient discharged Performed By: #### L 100.0100, L500.2500 ####[facility] [address] [place], [address] EST GFR - AA Normal >60 [facility] Comment on above: Result Comment: Canc elled via OM: Order cancelled - Patient discharged Performed By: #### L 100.0100, L500.2500 ####[facility] [address] [place], [address] GAP Normal 5-15 [facility] Comment on above: Result Comment: Canc elled via OM: Order cancelled - Patient discharged Performed By: #### L 100.0100, L500.2500 ####[facility] [address] [place], [address] GLU Normal 74-106 [facility] Comment on above: Result Comment: Canc elled via OM: Order cancelled - Patient discharged Performed By: #### L 100.0100, L500.2500 ####[facility] [address] [place], [address] Potassium Normal 3.5-5.1 [facility] Comment on above: Result Comment: Canc elled via OM: Order cancelled - Patient discharged Performed By: #### L 100.0100, L500.2500 ####[facility] [address] [place], [address] Basic Metabolic Profile (BMP) Normal 136-145 [facility] Comment on above: Result Comment: Canc elled via OM: Order cancelled - Patient discharged Performed By: #### L 100.0100, L500.2500 ####[facility] [address] [place], [address] CBC W/Diff, Automatedon 03-0 Absolute Neut Normal 2.0-7.7 [facility] Comment on above: Result Comment: Canc elled via OM: Order cancelled - Patient discharged Performed By: #### L 100.0100, L500.2500 ####[facility] [address] [place], [address] HCT Normal 37-47 [facility] Comment on above: Result Comment: Canc elled via OM: Order cancelled - Patient discharged Performed By: #### L 100.0100, L500.2500 ####[facility] [address] [place], [address] HGB Normal 12.0-15.0 [facility] Comment on above: Result Comment: Canc elled via OM: Order cancelled - Patient discharged Performed By: #### L 100.0100, L500.2500 ####[facility] [address] [place], [address] MCH Normal 27.0-32.0 [facility] Comment on above: Result Comment: Canc elled via OM: Order cancelled - Patient discharged Performed By: #### L 100.0100, L500.2500 ####[facility] [address] [place], [address] MCHC Normal 32-36 [facility] Comment on above: Result Comment: Canc elled via OM: Order cancelled - Patient discharged Performed By: #### L 100.0100, L500.2500 ####[facility] [address] [place], [address] MCV Normal 81-99 [facility] Comment on above: Result Comment: Canc elled via OM: Order cancelled - Patient discharged Performed By: #### L 100.0100, L500.2500 ####[facility] [address] [place], [address] NEUT% Normal 47-70 [facility] Comment on above: Result Comment: Canc elled via OM: Order cancelled - Patient discharged Performed By: #### L 100.0100, L500.2500 ####[facility] [address] [place], [address] PLT Normal 150-450 [facility] Comment on above: Result Comment: Canc elled via OM: Order cancelled - Patient discharged Performed By: #### L 100.0100, L500.2500 ####[facility] [address] [place], [address] RBC Normal 4.2-5.4 [facility] Comment on above: Result Comment: Canc elled via OM: Order cancelled - Patient discharged Performed By: #### L 100.0100, L500.2500 ####[facility] [address] [place], [address] RDW CV Normal 11.6-14.6 [facility] Comment on above: Result Comment: Canc elled via OM: Order cancelled - Patient discharged Performed By: #### L 100.0100, L500.2500 ####[facility] [address] [place], [address] RDW SD Normal 35.1-43.9 [facility] Comment on above: Result Comment: Canc elled via OM: Order cancelled - Patient discharged Performed By: #### L 100.0100, L500.2500 ####[facility] [address] [place], [address] WBC Normal 4.4-11.0 [facility] Comment on above: Result Comment: Canc elled via OM: Order cancelled - Patient discharged Performed By: #### L 100.0100, L500.2500 ####[facility] [address] [place], [address] Basic Metabolic Profile (BMP )on 10-25-2024 BUN Normal 7-18 [facility] Comment on above: Result Comment: Canc elled via OM: Order cancelled - Patient discharged Performed By: #### L 100.0100, L500.2500 ####[facility] [address] [place], [address] BUN/CRE Normal 10-20 [facility] Comment on above: Result Comment: Canc elled via OM: Order cancelled - Patient discharged Performed By: #### L 100.0100, L500.2500 ####[facility] [address] [place], [address] CA,Total Normal 8.5-10.1 [facility] Comment on above: Result Comment: Canc elled via OM: Order cancelled - Patient discharged Performed By: #### L 100.0100, L500.2500 ####[facility] [address] [place], [address] CL Normal 98-107 [facility] Comment on above: Result Comment: Canc elled via OM: Order cancelled - Patient discharged Performed By: #### L 100.0100, L500.2500 ####[facility] [address] [place], [address] CO2 Normal 21.0-32.0 [facility] Comment on above: Result Comment: Canc elled via OM: Order cancelled - Patient discharged Performed By: #### L 100.0100, L500.2500 ####[facility] [address] [place], [address] CREAT,SERUM Normal 0.55-1.02 [facility] Comment on above: Result Comment: Canc elled via OM: Order cancelled - Patient discharged Performed By: #### L 100.0100, L500.2500 ####[facility] [address] [place], [address] EST GFR Normal >60 [facility] Comment on above: Result Comment: Canc elled via OM: Order cancelled - Patient discharged Performed By: #### L 100.0100, L500.2500 ####[facility] [address] [place], [address] EST GFR - AA Normal >60 [facility] Comment on above: Result Comment: Canc elled via OM: Order cancelled - Patient discharged Performed By: #### L 100.0100, L500.2500 ####[facility] [address] [place], [address] GAP Normal 5-15 [facility] Comment on above: Result Comment: Canc elled via OM: Order cancelled - Patient discharged Performed By: #### L 100.0100, L500.2500 ####[facility] [address] [place], [address] GLU Normal 74-106 [facility] Comment on above: Result Comment: Canc elled via OM: Order cancelled - Patient discharged Performed By: #### L 100.0100, L500.2500 ####[facility] [address] [place], [address] Potassium Normal 3.5-5.1 [facility] Comment on above: Result Comment: Canc elled via OM: Order cancelled - Patient discharged Performed By: #### L 100.0100, L500.2500 ####[facility] [address] [place], [address] Basic Metabolic Profile (BMP) Normal 136-145 [facility] Comment on above: Result Comment: Canc elled via OM: Order cancelled - Patient discharged Performed By: #### L 100.0100, L500.2500 ####[facility] [address] [place], [address] CBC W/Diff, Automatedon - Absolute Neut Normal 2.0-7.7 [facility] Comment on above: Result Comment: Canc elled via OM: Order cancelled - Patient discharged Performed By: #### L 100.0100, L500.2500 ####[facility] [address] [place], [address] HCT Normal 37-47 [facility] Comment on above: Result Comment: Canc elled via OM: Order cancelled - Patient discharged Performed By: #### L 100.0100, L500.2500 ####[facility] [address] [place], [address] HGB Normal 12.0-15.0 [facility] Comment on above: Result Comment: Canc elled via OM: Order cancelled - Patient discharged Performed By: #### L 100.0100, L500.2500 ####[facility] [address] [place], [address] MCH Normal 27.0-32.0 [facility] Comment on above: Result Comment: Canc elled via OM: Order cancelled - Patient discharged Performed By: #### L 100.0100, L500.2500 ####[facility] [address] [place], [address] MCHC Normal 32-36 [facility] Comment on above: Result Comment: Canc elled via OM: Order cancelled - Patient discharged Performed By: #### L 100.0100, L500.2500 ####[facility] [address] [place], [address] MCV Normal 81-99 [facility] Comment on above: Result Comment: Canc elled via OM: Order cancelled - Patient discharged Performed By: #### L 100.0100, L500.2500 ####[facility] [address] [place], [address] NEUT% Normal 47-70 [facility] Comment on above: Result Comment: Canc elled via OM: Order cancelled - Patient discharged Performed By: #### L 100.0100, L500.2500 ####[facility] [address] [place], [address] PLT Normal 150-450 [facility] Comment on above: Result Comment: Canc elled via OM: Order cancelled - Patient discharged Performed By: #### L 100.0100, L500.2500 ####[facility] [address] [place], [address] RBC Normal 4.2-5.4 [facility] Comment on above: Result Comment: Canc elled via OM: Order cancelled - Patient discharged Performed By: #### L 100.0100, L500.2500 ####[facility] [address] [place], [address] RDW CV Normal 11.6-14.6 [facility] Comment on above: Result Comment: Canc elled via OM: Order cancelled - Patient discharged Performed By: #### L 100.0100, L500.2500 ####[facility] [address] [place], [address] RDW SD Normal 35.1-43.9 [facility] Comment on above: Result Comment: Canc elled via OM: Order cancelled - Patient discharged Performed By: #### L 100.0100, L500.2500 ####[facility] [address] [place], [address] WBC Normal 4.4-11.0 [facility] Comment on above: Result Comment: Canc elled via OM: Order cancelled - Patient discharged Performed By: #### L 100.0100, L500.2500 ####[facility] [address] [place], [address] Basic Metabolic Profile (BMP )on 10-24-2024 BUN Normal 7-18 [facility] Comment on above: Result Comment: Canc elled via OM: Order cancelled - Patient discharged Performed By: #### L 500.2500, L100.0100 ####[facility] [address] [place], [address] BUN/CRE Normal 10-20 [facility] Comment on above: Result Comment: Canc elled via OM: Order cancelled - Patient discharged Performed By: #### L 500.2500, L100.0100 ####[facility] [address] [place], [address] CA,Total Normal 8.5-10.1 [facility] Comment on above: Result Comment: Canc elled via OM: Order cancelled - Patient discharged Performed By: #### L 500.2500, L100.0100 ####[facility] [address] [place], [address] CL Normal 98-107 [facility] Comment on above: Result Comment: Canc elled via OM: Order cancelled - Patient discharged Performed By: #### L 500.2500, L100.0100 ####[facility] [address] [place], [address] CO2 Normal 21.0-32.0 [facility] Comment on above: Result Comment: Canc elled via OM: Order cancelled - Patient discharged Performed By: #### L 500.2500, L100.0100 ####[facility] [address] [place], [address] CREAT,SERUM Normal 0.55-1.02 [facility] Comment on above: Result Comment: Canc elled via OM: Order cancelled - Patient discharged Performed By: #### L 500.2500, L100.0100 ####[facility] [address] [place], [address] EST GFR Normal >60 [facility] Comment on above: Result Comment: Canc elled via OM: Order cancelled - Patient discharged Performed By: #### L 500.2500, L100.0100 ####[facility] [address] [place], [address] EST GFR - AA Normal >60 [facility] Comment on above: Result Comment: Canc elled via OM: Order cancelled - Patient discharged Performed By: #### L 500.2500, L100.0100 ####[facility] [address] [place], [address] GAP Normal 5-15 [facility] Comment on above: Result Comment: Canc elled via OM: Order cancelled - Patient discharged Performed By: #### L 500.2500, L100.0100 ####[facility] [address] [place], [address] GLU Normal 74-106 [facility] Comment on above: Result Comment: Canc elled via OM: Order cancelled - Patient discharged Performed By: #### L 500.2500, L100.0100 ####[facility] [address] [place], [address] Potassium Normal 3.5-5.1 [facility] Comment on above: Result Comment: Canc elled via OM: Order cancelled - Patient discharged Performed By: #### L 500.2500, L100.0100 ####[facility] [address] [place], [address] Basic Metabolic Profile (BMP) Normal 136-145 [facility] Comment on above: Result Comment: Canc elled via OM: Order cancelled - Patient discharged Performed By: #### L 500.2500, L100.0100 ####[facility] [address] [place], [address] CBC W/Diff, Automatedon 02-2 Absolute Neut Normal 2.0-7.7 [facility] Comment on above: Result Comment: Canc elled via OM: Order cancelled - Patient discharged Performed By: #### L 500.2500, L100.0100 ####[facility] [address] [place], [address] HCT Normal 37-47 [facility] Comment on above: Result Comment: Canc elled via OM: Order cancelled - Patient discharged Performed By: #### L 500.2500, L100.0100 ####[facility] [address] [place], [address] HGB Normal 12.0-15.0 [facility] Comment on above: Result Comment: Canc elled via OM: Order cancelled - Patient discharged Performed By: #### L 500.2500, L100.0100 ####[facility] [address] [place], [address] MCH Normal 27.0-32.0 [facility] Comment on above: Result Comment: Canc elled via OM: Order cancelled - Patient discharged Performed By: #### L 500.2500, L100.0100 ####[facility] [address] [place], [address] MCHC Normal 32-36 [facility] Comment on above: Result Comment: Canc elled via OM: Order cancelled - Patient discharged Performed By: #### L 500.2500, L100.0100 ####[facility] [address] [place], [address] MCV Normal 81-99 [facility] Comment on above: Result Comment: Canc elled via OM: Order cancelled - Patient discharged Performed By: #### L 500.2500, L100.0100 ####[facility] [address] [place], [address] NEUT% Normal 47-70 [facility] Comment on above: Result Comment: Canc elled via OM: Order cancelled - Patient discharged Performed By: #### L 500.2500, L100.0100 ####[facility] [address] [place], [address] PLT Normal 150-450 [facility] Comment on above: Result Comment: Canc elled via OM: Order cancelled - Patient discharged Performed By: #### L 500.2500, L100.0100 ####[facility] [address] [place], [address] RBC Normal 4.2-5.4 [facility] Comment on above: Result Comment: Canc elled via OM: Order cancelled - Patient discharged Performed By: #### L 500.2500, L100.0100 ####[facility] [address] [place], [address] RDW CV Normal 11.6-14.6 [facility] Comment on above: Result Comment: Canc elled via OM: Order cancelled - Patient discharged Performed By: #### L 500.2500, L100.0100 ####[facility] [address] [place], [address] RDW SD Normal 35.1-43.9 [facility] Comment on above: Result Comment: Canc elled via OM: Order cancelled - Patient discharged Performed By: #### L 500.2500, L100.0100 ####[facility] [address] [place], [address] WBC Normal 4.4-11.0 [facility] Comment on above: Result Comment: Canc elled via OM: Order cancelled - Patient discharged Performed By: #### L 500.2500, L100.0100 ####[facility] [address] [place], [address] Basic Metabolic Profile (BMP )on 10-23-2024 BUN Normal 7-18 [facility] Comment on above: Result Comment: Canc elled via OM: Order cancelled - Patient discharged Performed By: #### L 500.2500, L100.0100 ####[facility] [address] [place], [address] BUN/CRE Normal 10-20 [facility] Comment on above: Result Comment: Canc elled via OM: Order cancelled - Patient discharged Performed By: #### L 500.2500, L100.0100 ####[facility] [address] [place], [address] CA,Total Normal 8.5-10.1 [facility] Comment on above: Result Comment: Canc elled via OM: Order cancelled - Patient discharged Performed By: #### L 500.2500, L100.0100 ####[facility] [address] [place], [address] CL Normal 98-107 [facility] Comment on above: Result Comment: Canc elled via OM: Order cancelled - Patient discharged Performed By: #### L 500.2500, L100.0100 ####[facility] [address] [place], [address] CO2 Normal 21.0-32.0 [facility] Comment on above: Result Comment: Canc elled via OM: Order cancelled - Patient discharged Performed By: #### L 500.2500, L100.0100 ####[facility] [address] [place], [address] CREAT,SERUM Normal 0.55-1.02 [facility] Comment on above: Result Comment: Canc elled via OM: Order cancelled - Patient discharged Performed By: #### L 500.2500, L100.0100 ####[facility] [address] [place], [address] EST GFR Normal >60 [facility] Comment on above: Result Comment: Canc elled via OM: Order cancelled - Patient discharged Performed By: #### L 500.2500, L100.0100 ####[facility] [address] [place], [address] EST GFR - AA Normal >60 [facility] Comment on above: Result Comment: Canc elled via OM: Order cancelled - Patient discharged Performed By: #### L 500.2500, L100.0100 ####[facility] [address] [place], [address] GAP Normal 5-15 [facility] Comment on above: Result Comment: Canc elled via OM: Order cancelled - Patient discharged Performed By: #### L 500.2500, L100.0100 ####[facility] [address] [place], [address] GLU Normal 74-106 [facility] Comment on above: Result Comment: Canc elled via OM: Order cancelled - Patient discharged Performed By: #### L 500.2500, L100.0100 ####[facility] [address] [place], [address] Potassium Normal 3.5-5.1 [facility] Comment on above: Result Comment: Canc elled via OM: Order cancelled - Patient discharged Performed By: #### L 500.2500, L100.0100 ####[facility] [address] [place], [address] Basic Metabolic Profile (BMP) Normal 136-145 [facility] Comment on above: Result Comment: Canc elled via OM: Order cancelled - Patient discharged Performed By: #### L 500.2500, L100.0100 ####[facility] [address] [place], [address] CBC W/Diff, Automatedon 02-2 Absolute Neut Normal 2.0-7.7 [facility] Comment on above: Result Comment: Canc elled via OM: Order cancelled - Patient discharged Performed By: #### L 500.2500, L100.0100 ####[facility] [address] [place], [address] HCT Normal 37-47 [facility] Comment on above: Result Comment: Canc elled via OM: Order cancelled - Patient discharged Performed By: #### L 500.2500, L100.0100 ####[facility] [address] [place], [address] HGB Normal 12.0-15.0 [facility] Comment on above: Result Comment: Canc elled via OM: Order cancelled - Patient discharged Performed By: #### L 500.2500, L100.0100 ####[facility] [address] [place], [address] MCH Normal 27.0-32.0 [facility] Comment on above: Result Comment: Canc elled via OM: Order cancelled - Patient discharged Performed By: #### L 500.2500, L100.0100 ####[facility] [address] [place], [address] MCHC Normal 32-36 [facility] Comment on above: Result Comment: Canc elled via OM: Order cancelled - Patient discharged Performed By: #### L 500.2500, L100.0100 ####[facility] [address] [place], [address] MCV Normal 81-99 [facility] Comment on above: Result Comment: Canc elled via OM: Order cancelled - Patient discharged Performed By: #### L 500.2500, L100.0100 ####[facility] [address] [place], [address] NEUT% Normal 47-70 [facility] Comment on above: Result Comment: Canc elled via OM: Order cancelled - Patient discharged Performed By: #### L 500.2500, L100.0100 ####[facility] [address] [place], [address] PLT Normal 150-450 [facility] Comment on above: Result Comment: Canc elled via OM: Order cancelled - Patient discharged Performed By: #### L 500.2500, L100.0100 ####[facility] [address] [place], [address] RBC Normal 4.2-5.4 [facility] Comment on above: Result Comment: Canc elled via OM: Order cancelled - Patient discharged Performed By: #### L 500.2500, L100.0100 ####[facility] [address] [place], [address] RDW CV Normal 11.6-14.6 [facility] Comment on above: Result Comment: Canc elled via OM: Order cancelled - Patient discharged Performed By: #### L 500.2500, L100.0100 ####[facility] [address] [place], [address] RDW SD Normal 35.1-43.9 [facility] Comment on above: Result Comment: Canc elled via OM: Order cancelled - Patient discharged Performed By: #### L 500.2500, L100.0100 ####[facility] [address] [place], [address] WBC Normal 4.4-11.0 [facility] Comment on above: Result Comment: Canc elled via OM: Order cancelled - Patient discharged Performed By: #### L 500.2500, L100.0100 ####[facility] [address] [place], [address] Basic Metabolic Profile (BMP )on 10-22-2024 BUN Normal 7-18 [facility] Comment on above: Result Comment: Canc elled via OM: Order cancelled - Patient discharged Performed By: #### L 500.2500, L100.0100 ####[facility] [address] [place], [address] BUN/CRE Normal 10-20 [facility] Comment on above: Result Comment: Canc elled via OM: Order cancelled - Patient discharged Performed By: #### L 500.2500, L100.0100 ####[facility] [address] [place], [address] CA,Total Normal 8.5-10.1 [facility] Comment on above: Result Comment: Canc elled via OM: Order cancelled - Patient discharged Performed By: #### L 500.2500, L100.0100 ####[facility] [address] [place], [address] CL Normal 98-107 [facility] Comment on above: Result Comment: Canc elled via OM: Order cancelled - Patient discharged Performed By: #### L 500.2500, L100.0100 ####[facility] [address] [place], [address] CO2 Normal 21.0-32.0 [facility] Comment on above: Result Comment: Canc elled via OM: Order cancelled - Patient discharged Performed By: #### L 500.2500, L100.0100 ####[facility] [address] [place], [address] CREAT,SERUM Normal 0.55-1.02 [facility] Comment on above: Result Comment: Canc elled via OM: Order cancelled - Patient discharged Performed By: #### L 500.2500, L100.0100 ####[facility] [address] [place], [address] EST GFR Normal >60 [facility] Comment on above: Result Comment: Canc elled via OM: Order cancelled - Patient discharged Performed By: #### L 500.2500, L100.0100 ####[facility] [address] [place], [address] EST GFR - AA Normal >60 [facility] Comment on above: Result Comment: Canc elled via OM: Order cancelled - Patient discharged Performed By: #### L 500.2500, L100.0100 ####[facility] [address] [place], [address] GAP Normal 5-15 [facility] Comment on above: Result Comment: Canc elled via OM: Order cancelled - Patient discharged Performed By: #### L 500.2500, L100.0100 ####[facility] [address] [place], [address] GLU Normal 74-106 [facility] Comment on above: Result Comment: Canc elled via OM: Order cancelled - Patient discharged Performed By: #### L 500.2500, L100.0100 ####[facility] [address] [place], [address] Potassium Normal 3.5-5.1 [facility] Comment on above: Result Comment: Canc elled via OM: Order cancelled - Patient discharged Performed By: #### L 500.2500, L100.0100 ####[facility] [address] [place], [address] Basic Metabolic Profile (BMP) Normal 136-145 [facility] Comment on above: Result Comment: Canc elled via OM: Order cancelled - Patient discharged Performed By: #### L 500.2500, L100.0100 ####[facility] [address] [place], [address] CBC W/Diff, Automatedon 02-2 Absolute Neut Normal 2.0-7.7 [facility] Comment on above: Result Comment: Canc elled via OM: Order cancelled - Patient discharged Performed By: #### L 500.2500, L100.0100 ####[facility] [address] [place], [address] HCT Normal 37-47 [facility] Comment on above: Result Comment: Canc elled via OM: Order cancelled - Patient discharged Performed By: #### L 500.2500, L100.0100 ####[facility] [address] [place], [address] HGB Normal 12.0-15.0 [facility] Comment on above: Result Comment: Canc elled via OM: Order cancelled - Patient discharged Performed By: #### L 500.2500, L100.0100 ####[facility] [address] [place], [address] MCH Normal 27.0-32.0 [facility] Comment on above: Result Comment: Canc elled via OM: Order cancelled - Patient discharged Performed By: #### L 500.2500, L100.0100 ####[facility] [address] [place], [address] MCHC Normal 32-36 [facility] Comment on above: Result Comment: Canc elled via OM: Order cancelled - Patient discharged Performed By: #### L 500.2500, L100.0100 ####[facility] [address] [place], [address] MCV Normal 81-99 [facility] Comment on above: Result Comment: Canc elled via OM: Order cancelled - Patient discharged Performed By: #### L 500.2500, L100.0100 ####[facility] [address] [place], [address] NEUT% Normal 47-70 [facility] Comment on above: Result Comment: Canc elled via OM: Order cancelled - Patient discharged Performed By: #### L 500.2500, L100.0100 ####[facility] [address] [place], [address] PLT Normal 150-450 [facility] Comment on above: Result Comment: Canc elled via OM: Order cancelled - Patient discharged Performed By: #### L 500.2500, L100.0100 ####[facility] [address] [place], [address] RBC Normal 4.2-5.4 [facility] Comment on above: Result Comment: Canc elled via OM: Order cancelled - Patient discharged Performed By: #### L 500.2500, L100.0100 ####[facility] [address] [place], [address] RDW CV Normal 11.6-14.6 [facility] Comment on above: Result Comment: Canc elled via OM: Order cancelled - Patient discharged Performed By: #### L 500.2500, L100.0100 ####[facility] [address] [place], [address] RDW SD Normal 35.1-43.9 [facility] Comment on above: Result Comment: Canc elled via OM: Order cancelled - Patient discharged Performed By: #### L 500.2500, L100.0100 ####[facility] [address] [place], [address] WBC Normal 4.4-11.0 [facility] Comment on above: Result Comment: Canc elled via OM: Order cancelled - Patient discharged Performed By: #### L 500.2500, L100.0100 ####[facility] [address] [place], [address] Basic Metabolic Profile (BMP )on 10-21-2024 BUN/CRE 17.1 RATIO Normal 10-20 [facility] Comment on above: Performed By: #### L 500.2500, L100.0100 ####[facility] [address] [place], [address] CA,Total 9.4 mg/dL Normal 8.5-10.1 [facility] Comment on above: Performed By: #### L 500.2500, L100.0100 ####[facility] [address] [place], [address] Chloride [Moles/Vol] 97 mmol/L Low 98-107 [facility] Comment on above: Performed By: #### L 500.2500, L100.0100 ####[facility] [address] [place], [address] CO2 [Moles/Vol] 16.0 mmol/L Low 21.0-32.0 [facility] Comment on above: Performed By: #### L 500.2500, L100.0100 ####[facility] [address] [place], [address] Creatinine [Mass/Vol] 0.88 mg/dL Normal 0.55-1.02 [facility] Comment on above: Result Comment: The validity of the calculated GFR GFRAA in patients over70 years has not been determined. Clinical correlation isessential. Performed By: #### L 500.2500, L100.0100 ####[facility] [address] [place], [address] ECRCL 97.69 ml/min Normal [facility] Comment on above: Performed By: #### L 500.2500, L100.0100 ####[facility] [address] [place], [address] EST GFR - AA 97 mL/min Normal >60 [facility] Comment on above: Result Comment: Afri can [place] GFR Calc Performed By: #### L 500.2500, L100.0100 ####[facility] [address] [place], [address] GAP 15 Normal 5-15 [facility] Comment on above: Performed By: #### L 500.2500, L100.0100 ####[facility] [address] [place], [address] GFR/1.73 sq M.predicted among non-blacks MDRD (S/P/Bld) [Vol rate/Area] 80 mL/min/{1.73_m2} Normal >60 [facility] Comment on above: Result Comment: Non- GFR Calc Performed By: #### L 500.2500, L100.0100 ####[facility] [address] [place], [address] Glucose [Mass/Vol] 546 mg/dL Invalid Interpretation Code 74-106 [facility] Comment on above: Result Comment: Crit ical Result(s) Called at: 05:07:31 10/21/2024 by:[facility] Friedman to [facility]. Results read back by same.Glucose result greater than or equal to 200 mg/dLsuggests DIABETES MELLITUS per A.D.A. criteria. Performed By: #### L 500.2500, L100.0100 ####[facility] [address] [place], [address] Potassium [Moles/Vol] 5.3 mmol/L High 3.5-5.1 [facility] Comment on above: Performed By: #### L 500.2500, L100.0100 ####[facility] [address] [place], [address] Sodium [Moles/Vol] 128 mmol/L Low 136-145 [facility] Comment on above: Performed By: #### L 500.2500, L100.0100 ####[facility] [address] [place], [address] Urea nitrogen [Mass/Vol] 15 mg/dL Normal 7-18 [facility] Comment on above: Performed By: #### L 500.2500, L100.0100 ####[facility] [address] [place], [address] Bedside Glucoseon 10-21-2024 [facility] GLU 296 mg/dL High [address] [place] [address] Comment on above: Result Comment: EDGAR GEMENT OF PATIENT CARE PER NURSING PROTOCOL Performed By: #### L 501.080 ####[facility] [address] [place], [address] FINGER[place]ICK GLU 187 mg/dL High [address] [place] [address] Comment on above: Result Comment: EDGAR GEMENT OF PATIENT CARE PER NURSING PROTOCOL Performed By: #### L 501.080 ####[facility] [address] [place], [address] FINGERSTICK GLU 408 mg/dL High [address] [place] [address] Comment on above: Result Comment: EDGAR GEMENT OF PATIENT CARE PER NURSING PROTOCOL Performed By: #### L 501.080 ####[facility] [address] [place], [address] FINGERSTICK GLU 481 mg/dL Invalid Interpretation Code -[address] [place] [address] Comment on above: Result Comment: Repe at TestMANAGEMENT OF PATIENT CARE PER NURSING PROTOCOL Performed By: #### L 501.080 ####[facility] [address] [place], [address] CBC W/Diff, Automatedon 09-29 Absolute Lymph 2.01 X10 3/uL Normal 0.83-4.51 [facility] Comment on above: Performed By: #### L 500.2500, L100.0100 ####[facility] [address] [place], [address] Absolute Neut 13.3 X10 3/uL High 2.0-7.7 [facility] Comment on above: Performed By: #### L 500.2500, L100.0100 ####[facility] [address] [place], [address] Basophils/100 WBC (Bld) 0.5 % Normal 0-1 [facility] Comment on above: Performed By: #### L 500.2500, L100.0100 ####[facility] [address] [place], [address] Eosinophils/100 WBC (Bld) 1.8 % Normal 0-5 [facility] Comment on above: Performed By: #### L 500.2500, L100.0100 ####[facility] [address] [place], [address] Erythrocyte distribution width (RBC) [Ratio] 12.9 % Normal 11.6-14.6 [facility] Comment on above: Performed By: #### L 500.2500, L100.0100 ####[facility] [address] [place], [address] Hematocrit (Bld) [Volume fraction] 44.3 % Normal 37-47 [facility] Comment on above: Performed By: #### L 500.2500, L100.0100 ####[facility] [address] [place], [address] Hemoglobin (Bld) [Mass/Vol] 14.3 g/dL Normal 12.0-15.0 [facility] Comment on above: Performed By: #### L 500.2500, L100.0100 ####[facility] [address] [place], [address] IG% 0.800 Normal 0.0-0.9 [facility] Comment on above: Result Comment: IG% - Immature Granulocytes (promyelocytes, myelocytes andmetamyelocytes) > 1% indicates that a LEFT SHIFT is Present. Performed By: #### L 500.2500, L100.0100 ####[facility] [address] [place], [address] Lymphocytes/100 WBC (Bld) 12.2 % Low 19-41 [facility] Comment on above: Performed By: #### L 500.2500, L100.0100 ####[facility] [address] [place], [address] MCH (RBC) [Entitic mass] 28.8 pg Normal 27.0-32.0 [facility] Comment on above: Performed By: #### L 500.2500, L100.0100 ####[facility] [address] [place], [address] MCHC (RBC) [Mass/Vol] 32.3 g/dL Normal 32-36 [facility] Comment on above: Performed By: #### L 500.2500, L100.0100 ####[facility] [address] [place], [address] MCV (RBC) [Entitic vol] 89.1 fL Normal 81-99 [facility] Comment on above: Performed By: #### L 500.2500, L100.0100 ####[facility] [address] [place], [address] Monocytes/100 WBC (Bld) 4.3 % Normal 0-10 [facility] Comment on above: Performed By: #### L 500.2500, L100.0100 ####[facility] [address] [place], [address] Neutrophils/100 WBC (Bld) 80.4 % High 47-70 [facility] Comment on above: Performed By: #### L 500.2500, L100.0100 ####[facility] [address] [place], [address] Nucleated RBC (Bld) [#/Vol] 0 10*3/uL Normal 0-5 [facility] Comment on above: Performed By: #### L 500.2500, L100.0100 ####[facility] [address] [place], [address] Platelet mean volume (Bld) [Entitic vol] 12.6 fL High 6.2-12.0 [facility] Comment on above: Performed By: #### L 500.2500, L100.0100 ####[facility] [address] [place], [address] Platelets (Bld) [#/Vol] 192 10*3/uL Normal 150-450 [facility] Comment on above: Performed By: #### L 500.2500, L100.0100 ####[facility] [address] [place], [address] RBC (Bld) [#/Vol] 4.97 10*6/uL Normal 4.2-5.4 [facility] Comment on above: Performed By: #### L 500.2500, L100.0100 ####[facility] [address] [place], [address] RDW SD 41.7 fl Normal 35.1-43.9 [facility] Comment on above: Performed By: #### L 500.2500, L100.0100 ####[facility] [address] [place], [address] WBC (Bld) [#/Vol] 16.5 10*3/uL High 4.4-11.0 [facility] Comment on above: Performed By: #### L 500.2500, L100.0100 ####[facility] [address] [place], [address] Discharge Instructionon -2 Discharge Instruction Normal [facility] Basic Metabolic Profile (BMP )on 10-20-2024 BUN/CRE 13.2 RATIO Normal 10-20 [facility] Comment on above: Performed By: #### L 500.2500, L100.0100 ####[facility] [address] [place], [address] CA,Total 8.8 mg/dL Normal 8.5-10.1 [facility] Comment on above: Performed By: #### L 500.2500, L100.0100 ####[facility] [address] [place], [address] Chloride [Moles/Vol] 104 mmol/L Normal 98-107 [facility] Comment on above: Performed By: #### L 500.2500, L100.0100 ####[facility] [address] [place], [address] CO2 [Moles/Vol] 22.0 mmol/L Normal 21.0-32.0 [facility] Comment on above: Performed By: #### L 500.2500, L100.0100 ####[facility] [address] [place], [address] Creatinine [Mass/Vol] 0.61 mg/dL Normal 0.55-1.02 [facility] Comment on above: Result Comment: The validity of the calculated GFR GFRAA in patients over70 years has not been determined. Clinical correlation isessential. Performed By: #### L 500.2500, L100.0100 ####[facility] [address] [place], [address] ECRCL 140.93 ml/min Normal [facility] Comment on above: Performed By: #### L 500.2500, L100.0100 ####[facility] [address] [place], [address] EST GFR - AA 149 mL/min Normal >60 [facility] Comment on above: Result Comment: Afri can Panamanian GFR Calc Performed By: #### L 500.2500, L100.0100 ####[facility] [address] [place], [address] GAP 8 Normal 5-15 [facility] Comment on above: Performed By: #### L 500.2500, L100.0100 ####[facility] [address] [place], [address] GFR/1.73 sq M.predicted among non-blacks MDRD (S/P/Bld) [Vol rate/Area] 123 mL/min/{1.73_m2} Normal >60 [facility] Comment on above: Result Comment: Non- GFR Calc Performed By: #### L 500.2500, L100.0100 ####[facility] [address] [place], [address] Glucose [Mass/Vol] 222 mg/dL High 74-106 [facility] Comment on above: Result Comment: Gluc ose result greater than or equal to 200 mg/dLsuggests DIABETES MELLITUS per A.D.A. criteria. Performed By: #### L 500.2500, L100.0100 ####[facility] [address] [place], [address] Potassium [Moles/Vol] 4.2 mmol/L Normal 3.5-5.1 [facility] Comment on above: Performed By: #### L 500.2500, L100.0100 ####[facility] [address] [place], [address] Sodium [Moles/Vol] 134 mmol/L Low 136-145 [facility] Comment on above: Performed By: #### L 500.2500, L100.0100 ####[facility] [address] [place], [address] Urea nitrogen [Mass/Vol] 8 mg/dL Normal 7-18 [facility] Comment on above: Performed By: #### L 500.2500, L100.0100 ####[facility] [address] [place], [address] Bedside Glucoseon 10-20-2024 FINGERSTICK GLU 94 mg/dL Normal 74-106 [facility] Comment on above: Result Comment: EDGAR HUNG OF PATIENT CARE PER NURSING PROTOCOL Performed By: #### L 501.080 ####[facility] [address] [place], [address] FINGERSTICK GLU 337 mg/dL High 74-106 [facility] Comment on above: Result Comment: EDGAR GEMENT OF PATIENT CARE PER NURSING PROTOCOL Performed By: #### L 501.080 ####[facility] [address] [place], [address] FINGERSTICK GLU 441 mg/dL High 74-106 [facility] Comment on above: Result Comment: EDGAR GEMENT OF PATIENT CARE PER NURSING PROTOCOL Performed By: #### L 501.080 ####[facility] [address] [place], [address] FINGERSTICK GLU 200 mg/dL High -106 [facility] Comment on above: Result Comment: EDGAR GEMENT OF PATIENT CARE PER NURSING PROTOCOL Performed By: #### L 501.080 ####[facility] [address] [place], [address] FINGERSTICK GLU 90 mg/dL Normal 74-106 [facility] Comment on above: Result Comment: EDGAR GEMENT OF PATIENT CARE PER NURSING PROTOCOL Performed By: #### L 501.080 ####[facility] [address] [place], [address] FINGERSTICK GLU 182 mg/dL High 74-106 [facility] Comment on above: Result Comment: EDGAR GEMENT OF PATIENT CARE PER NURSING PROTOCOL Performed By: #### L 501.080 ####[facility] [address] [place], [address] FINGERSTICK GLU 303 mg/dL High [facility]106 [facility] Comment on above: Result Comment: EDGAR GEMENT OF PATIENT CARE PER NURSING PROTOCOL Performed By: #### L 501.080 ####[facility] [address] [place], [address] CBC W/Diff, Automatedon 09-29 Absolute Lymph 2.82 X10 3/uL Normal 0.83-4.51 [facility] Comment on above: Performed By: #### L 500.2500, L100.0100 ####[facility] [address] [place], [address] Absolute Neut 6.3 X10 3/uL Normal 2.0-7.7 [facility] Comment on above: Performed By: #### L 500.2500, L100.0100 ####[facility] [address] [place], [address] Basophils/100 WBC (Bld) 0.4 % Normal 0-1 [facility] Comment on above: Performed By: #### L 500.2500, L100.0100 ####[facility] [address] [place], [address] Eosinophils/100 WBC (Bld) 3.1 % Normal 0-5 [facility] Comment on above: Performed By: #### L 500.2500, L100.0100 ####[facility] [address] [place], [address] Erythrocyte distribution width (RBC) [Ratio] 13.0 % Normal 11.6-14.6 [facility] Comment on above: Performed By: #### L 500.2500, L100.0100 ####[facility] [address] [place], [address] Hematocrit (Bld) [Volume fraction] 40.2 % Normal 37-47 [facility] Comment on above: Performed By: #### L 500.2500, L100.0100 ####[facility] [address] [place], [address] Hemoglobin (Bld) [Mass/Vol] 13.0 g/dL Normal 12.0-15.0 [facility] Comment on above: Performed By: #### L 500.2500, L100.0100 ####[facility] [address] [place], [address] IG% 0.700 Normal 0.0-0.9 [facility] Comment on above: Result Comment: IG% - Immature Granulocytes (promyelocytes, myelocytes andmetamyelocytes) > 1% indicates that a LEFT SHIFT is Present. Performed By: #### L 500.2500, L100.0100 ####[facility] [address] [place], [address] Lymphocytes/100 WBC (Bld) 27.9 % Normal 19-41 [facility] Comment on above: Performed By: #### L 500.2500, L100.0100 ####[facility] [address] [place], [address] MCH (RBC) [Entitic mass] 28.6 pg Normal 27.0-32.0 [facility] Comment on above: Performed By: #### L 500.2500, L100.0100 ####[facility] [address] [place], [address] MCHC (RBC) [Mass/Vol] 32.3 g/dL Normal 32-36 [facility] Comment on above: Performed By: #### L 500.2500, L100.0100 ####[facility] [address] [place], [address] MCV (RBC) [Entitic vol] 88.5 fL Normal 81-99 [facility] Comment on above: Performed By: #### L 500.2500, L100.0100 ####[facility] [address] [place], [address] Monocytes/100 WBC (Bld) 5.5 % Normal 0-10 [facility] Comment on above: Performed By: #### L 500.2500, L100.0100 ####[facility] [address] [place], [address] Neutrophils/100 WBC (Bld) 62.4 % Normal 47-70 [facility] Comment on above: Performed By: #### L 500.2500, L100.0100 ####[facility] [address] [place], [address] Nucleated RBC (Bld) [#/Vol] 0 10*3/uL Normal 0-5 [facility] Comment on above: Performed By: #### L 500.2500, L100.0100 ####[facility] [address] [place], [address] Platelet mean volume (Bld) [Entitic vol] 12.5 fL High 6.2-12.0 [facility] Comment on above: Performed By: #### L 500.2500, L100.0100 ####[facility] [address] [place], [address] Platelets (Bld) [#/Vol] 158 10*3/uL Normal 150-450 [facility] Comment on above: Performed By: #### L 500.2500, L100.0100 ####[facility] [address] [place], [address] RBC (Bld) [#/Vol] 4.54 10*6/uL Normal 4.2-5.4 [facility] Comment on above: Performed By: #### L 500.2500, L100.0100 ####[facility] [address] [place], [address] RDW SD 42.4 fl Normal 35.1-43.9 [facility] Comment on above: Performed By: #### L 500.2500, L100.0100 ####[facility] [address] [place], [address] WBC (Bld) [#/Vol] 10.1 10*3/uL Normal 4.4-11.0 [facility] Comment on above: Performed By: #### L 500.2500, L100.0100 ####[facility] [address] [place], [address] Urine Cultureon 10-20-2024 U[facility] Mixed Gram Positive Organisms Hodgen Count 11,000-25,000 MIXC Mixed contaminants. Submit a new specimen if indicated. Normal [facility] Comment on above: Performed By: #### M 100.2200 ####[facility] [address] [place], [address] Bedside Glucoseon 10-19-2024 FINGERSTICK GLU 246 mg/dL High 74-106 [facility] Comment on above: Result Comment: EDGAR GEMENT OF PATIENT CARE PER NURSING PROTOCOL Performed By: #### L 501.080 ####[facility] [address] [place], [address] FINGERSTICK GLU 85 mg/dL Normal [address] [place] [address] Comment on above: Result Comment: EDGAR GEMENT OF PATIENT CARE PER NURSING PROTOCOL Performed By: #### L 501.080 ####[facility] [address] [place], [address] FINGERSTICK GLU 35 mg/dL Invalid Interpretation Code -[address] [place] [address] Comment on above: Result Comment: EDGAR GEMENT OF PATIENT CARE PER NURSING PROTOCOL Performed By: #### L 501.080 ####[facility] [address] [place], [address] FINGERSTICK GLU 64 mg/dL Low -[address] [place] [address] Comment on above: Result Comment: EDGAR GEMENT OF PATIENT CARE PER NURSING PROTOCOL Performed By: #### L 501.080 ####[facility] [address] [place], [address] FINGERSTICK GLU 156 mg/dL High [address] [place] [address] Comment on above: Result Comment: EDGAR GEMENT OF PATIENT CARE PER NURSING PROTOCOL Performed By: #### L 501.080 ####[facility] [address] [place], [address] FINGERSTICK GLU 53 mg/dL Low 74-106 [facility] Comment on above: Result Comment: EDGAR GEMENT OF PATIENT CARE PER NURSING PROTOCOL Performed By: #### L 501.080 ####[facility] [address] [place], [address] FINGERSTICK GLU 40 mg/dL Invalid Interpretation Code 74-106 [facility] Comment on above: Result Comment: [facility] k GivenMANAGEMENT OF PATIENT CARE PER NURSING PROTOCOL Performed By: #### L 501.080 ####[facility] [address] [place], [address] FINGERSTICK GLU 235 mg/dL High -106 [facility] Comment on above: Result Comment: EDGAR GEMENT OF PATIENT CARE PER NURSING PROTOCOL Performed By: #### L 501.080 ####[facility] [address] [place], [address] FINGERSTICK GLU 52 mg/dL Low -106 [facility] Comment on above: Result Comment: EDGAR GEMENT OF PATIENT CARE PER NURSING PROTOCOL Performed By: #### L 501.080 ####[facility] [address] [place], [address] FINGERSTICK GLU 132 mg/dL High -106 [facility] Comment on above: Result Comment: EGDAR GEMENT OF PATIENT CARE PER NURSING PROTOCOL Performed By: #### L 501.080 ####[facility] [address] [place], [address] CBC W/Diff, Automatedon - Absolute Lymph 3.09 X10 3/uL Normal 0.83-4.51 [facility] Comment on above: Performed By: #### L 500.4050, L100.0100 ####[facility] [address] [place], [address] Absolute Neut 6.9 X10 3/uL Normal 2.0-7.7 [facility] Comment on above: Performed By: #### L 500.4050, L100.0100 ####[facility] [address] [place], [address] Basophils/100 WBC (Bld) 0.5 % Normal 0-1 [facility] Comment on above: Performed By: #### L 500.4050, L100.0100 ####[facility] [address] [place], [address] Eosinophils/100 WBC (Bld) 1.8 % Normal 0-5 [facility] Comment on above: Performed By: #### L 500.4050, L100.0100 ####[facility] [address] [place], [address] Erythrocyte distribution width (RBC) [Ratio] 13.2 % Normal 11.6-14.6 [facility] Comment on above: Performed By: #### L 500.4050, L100.0100 ####[facility] [address] [place], [address] Hematocrit (Bld) [Volume fraction] 37.6 % Normal 37-47 [facility] Comment on above: Performed By: #### L 500.4050, L100.0100 ####[facility] [address] [place], [address] Hemoglobin (Bld) [Mass/Vol] 12.5 g/dL Normal 12.0-15.0 [facility] Comment on above: Performed By: #### L 500.4050, L100.0100 ####[facility] [address] [place], [address] IG% 0.800 Normal 0.0-0.9 [facility] Comment on above: Result Comment: IG% - Immature Granulocytes (promyelocytes, myelocytes andmetamyelocytes) > 1% indicates that a LEFT SHIFT is Present. Performed By: #### L 500.4050, L100.0100 ####[facility] [address] [place], [address] Lymphocytes/100 WBC (Bld) 27.9 % Normal 19-41 [facility] Comment on above: Performed By: #### L 500.4050, L100.0100 ####[facility] [address] [place], [address] MCH (RBC) [Entitic mass] 29.3 pg Normal 27.0-32.0 [facility] Comment on above: Performed By: #### L 500.4050, L100.0100 ####[facility] [address] [place], [address] MCHC (RBC) [Mass/Vol] 33.2 g/dL Normal 32-36 [facility] Comment on above: Performed By: #### L 500.4050, L100.0100 ####[facility] [address] [place], [address] MCV (RBC) [Entitic vol] 88.1 fL Normal 81-99 [facility] Comment on above: Performed By: #### L 500.4050, L100.0100 ####[facility] [address] [place], [address] Monocytes/100 WBC (Bld) 6.8 % Normal 0-10 [facility] Comment on above: Performed By: #### L 500.4050, L100.0100 ####[facility] [address] [place], [address] Neutrophils/100 WBC (Bld) 62.2 % Normal 47-70 [facility] Comment on above: Performed By: #### L 500.4050, L100.0100 ####[facility] [address] [place], [address] Nucleated RBC (Bld) [#/Vol] 0 10*3/uL Normal 0-5 [facility] Comment on above: Performed By: #### L 500.4050, L100.0100 ####[facility] [address] [place], [address] Platelet mean volume (Bld) [Entitic vol] 12.0 fL Normal 6.2-12.0 [facility] Comment on above: Performed By: #### L 500.4050, L100.0100 ####[facility] [address] [place], [address] Platelets (Bld) [#/Vol] 149 10*3/uL Low 150-450 [facility] Comment on above: Performed By: #### L 500.4050, L100.0100 ####[facility] [address] [place], [address] RBC (Bld) [#/Vol] 4.27 10*6/uL Normal 4.2-5.4 [facility] Comment on above: Performed By: #### L 500.4050, L100.0100 ####[facility] [address] [place], [address] RDW SD 42.4 fl Normal 35.1-43.9 [facility] Comment on above: Performed By: #### L 500.4050, L100.0100 ####[facility] [address] [place], [address] WBC (Bld) [#/Vol] 11.1 10*3/uL High 4.4-11.0 [facility] Comment on above: Performed By: #### L 500.4050, L100.0100 ####[facility] [address] [place], [address] Comprehensive Metabolic Prof ilon 10-19-2024 Albumin [Mass/Vol] 3.0 g/dL Low 3.2-5.0 [facility] Comment on above: Performed By: #### L 500.4050, L100.0100 ####[facility] [address] [place], [address] Albumin/Globulin [Mass ratio] 0.9 {ratio} Normal 0.9-2.4 [facility] Comment on above: Performed By: #### L 500.4050, L100.0100 ####[facility] [address] [place], [address] ALK P 67 U/L Normal 45-117 [facility] Comment on above: Performed By: #### L 500.4050, L100.0100 ####[facility] [address] [place], [address] ALT [Catalytic activity/Vol] 21 U/L Normal 13-56 [facility] Comment on above: Performed By: #### L 500.4050, L100.0100 ####[facility] [address] [place], [address] AST [Catalytic activity/Vol] 13 U/L Low 15-37 [facility] Comment on above: Performed By: #### L 500.4050, L100.0100 ####[facility] [address] [place], [address] Bilirubin [Mass/Vol] 0.40 mg/dL Normal 0.20-1.00 [facility] Comment on above: Result Comment: For patients on eltrombopag therapy, use of Dimension [place] TBIL is not recommended. Performed By: #### L 500.4050, L100.0100 ####[facility] [address] [place], [address] BUN/CRE 14.4 RATIO Normal 10-20 [facility] Comment on above: Performed By: #### L 500.4050, L100.0100 ####[facility] [address] [place], [address] CA,Total 8.2 mg/dL Low 8.5-10.1 [facility] Comment on above: Performed By: #### L 500.4050, L100.0100 ####[facility] [address] [place], [address] Chloride [Moles/Vol] 112 mmol/L High 98-107 [facility] Comment on above: Performed By: #### L 500.4050, L100.0100 ####[facility] [address] [place], [address] CO2 [Moles/Vol] 21.0 mmol/L Normal 21.0-32.0 [facility] Comment on above: Performed By: #### L 500.4050, L100.0100 ####[facility] [address] [place], [address] Creatinine [Mass/Vol] 0.55 mg/dL Normal 0.55-1.02 [facility] Comment on above: Result Comment: The validity of the calculated GFR GFRAA in patients over70 years has not been determined. Clinical correlation isessential. Performed By: #### L 500.4050, L100.0100 ####[facility] [address] [place], [address] ECRCL 156.31 ml/min Normal [facility] Comment on above: Performed By: #### L 500.4050, L100.0100 ####[facility] [address] [place], [address] EST GFR - AA 165 mL/min Normal >60 [facility] Comment on above: Result Comment: Afri can [place]ian GFR Calc Performed By: #### L 500.4050, L100.0100 ####[facility] [address] [place], [address] GAP 8 Normal 5-15 [facility] Comment on above: Performed By: #### L 500.4050, L100.0100 ####[facility] [address] [place], [address] GFR/1.73 sq M.predicted among non-blacks MDRD (S/P/Bld) [Vol rate/Area] 137 mL/min/{1.73_m2} Normal >60 [facility] Comment on above: Result Comment: Non- GFR Calc Performed By: #### L 500.4050, L100.0100 ####[facility] [address] [place], [address] Globulin (S) [Mass/Vol] 3.2 g/dL Normal 2.2-4.2 [facility] Comment on above: Performed By: #### L 500.4050, L100.0100 ####[facility] [address] [place], [address] Glucose [Mass/Vol] 49 mg/dL Low 74-106 [facility] Comment on above: Result Comment: Gluc ose result less than 50 mg/dL suggests HYPOGLYCEMIA. Performed By: #### L 500.4050, L100.0100 ####[facility] [address] [place], [address] Potassium [Moles/Vol] 3.7 mmol/L Normal 3.5-5.1 [facility] Comment on above: Performed By: #### L 500.4050, L100.0100 ####[facility] [address] [place], [address] Sodium [Moles/Vol] 140 mmol/L Normal 136-145 [facility] Comment on above: Performed By: #### L 500.4050, L100.0100 ####[facility] [address] [place], [address] T PROT 6.2 g/dL Low 6.4-8.2 [facility] Comment on above: Performed By: #### L 500.4050, L100.0100 ####[facility] [address] [place], [address] Urea nitrogen [Mass/Vol] 8 mg/dL Normal 7-18 [facility] Comment on above: Performed By: #### L 500.4050, L100.0100 ####[facility] [address] [place], [address] Glucoseon 10-19-2024 Glucose [Mass/Vol] 231 mg/dL High 74-106 [facility] Comment on above: Result Comment: Gluc ose result greater than or equal to 200 mg/dLsuggests DIABETES MELLITUS per A.D.A. criteria. Performed By: #### L 501.0100 ####[facility] [address] [place], [address] Glucose [Mass/Vol] 88 mg/dL Normal 74-106 [facility] Comment on above: Performed By: #### L 501.0100 ####[facility] [address] [place], [address] 12 Lead EKGon 10-18-2024 12 Lead EKG Normal [facility] Abdomen/Pelvis W IV Cont ONL Yon 10-18-2024 Abdomen/Pelvis W IV Cont ONLY Normal [facility] Acetone Serumon 10-18-2024 ACETONE SERUM Negative Normal NEG [facility] Comment on above: Performed By: #### L 501.6900 ####[facility] [address] [place], [address] Bedside Glucoseon 10-18-2024 FINGERSTICK GLU 85 mg/dL Normal 74-106 [facility] Comment on above: Result Comment: EDGAR HUNG OF PATIENT CARE PER NURSING PROTOCOL Performed By: #### L 501.080 ####[facility] [address] [place], [address] FINGERSTICK GLU 100 mg/dL Normal 74-106 [facility] Comment on above: Result Comment: EDGAR GEMENT OF PATIENT CARE PER NURSING PROTOCOL Performed By: #### L 501.080 ####[facility] [address] [place], [address] FINGERSTICK GLU 62 mg/dL Low 74-106 [facility] Comment on above: Result Comment: EDGAR GEMENT OF PATIENT CARE PER NURSING PROTOCOL Performed By: #### L 501.080 ####[facility] [address] [place], [address] CBC W/Diff, Automatedon 02- Absolute Lymph 1.82 X10 3/uL Normal 0.83-4.51 [facility] Comment on above: Performed By: #### L 500.4050, L100.0100, L700.6800, L501.2450 ####[facility] [address] [place], [address] Absolute Neut 14.0 X10 3/uL High 2.0-7.7 [facility] Comment on above: Performed By: #### L 500.4050, L100.0100, L700.6800, L501.2450 ####[facility] [address] [place], [address] Basophils/100 WBC (Bld) 0.2 % Normal 0-1 [facility] Comment on above: Performed By: #### L 500.4050, L100.0100, L700.6800, L501.2450 ####[facility] [address] [place], [address] Eosinophils/100 WBC (Bld) 0.2 % Normal 0-5 [facility] Comment on above: Performed By: #### L 500.4050, L100.0100, L700.6800, L501.2450 ####[facility] [address] [place], [address] Erythrocyte distribution width (RBC) [Ratio] 13.1 % Normal 11.6-14.6 [facility] Comment on above: Performed By: #### L 500.4050, L100.0100, L700.6800, L501.2450 ####[facility] [address] [place], [address] Hematocrit (Bld) [Volume fraction] 38.8 % Normal 37-47 [facility] Comment on above: Performed By: #### L 500.4050, L100.0100, L700.6800, L501.2450 ####[facility] [address] [place], [address] Hemoglobin (Bld) [Mass/Vol] 12.9 g/dL Normal 12.0-15.0 [facility] Comment on above: Performed By: #### L 500.4050, L100.0100, L700.6800, L501.2450 ####[facility] [address] [place], [address] IG% 0.600 Normal 0.0-0.9 [facility] Comment on above: Result Comment: IG% - Immature Granulocytes (promyelocytes, myelocytes andmetamyelocytes) > 1% indicates that a LEFT SHIFT is Present. Performed By: #### L 500.4050, L100.0100, L700.6800, L501.2450 ####[facility] [address] [place], [address] Lymphocytes/100 WBC (Bld) 10.7 % Low 19-41 [facility] Comment on above: Performed By: #### L 500.4050, L100.0100, L700.6800, L501.2450 ####[facility] [address] [place], [address] MCH (RBC) [Entitic mass] 29.3 pg Normal 27.0-32.0 [facility] Comment on above: Performed By: #### L 500.4050, L100.0100, L700.6800, L501.2450 ####[facility] [address] [place], [address] MCHC (RBC) [Mass/Vol] 33.2 g/dL Normal 32-36 [facility] Comment on above: Performed By: #### L 500.4050, L100.0100, L700.6800, L501.2450 ####[facility] [address] [place], [address] MCV (RBC) [Entitic vol] 88.2 fL Normal 81-99 [facility] Comment on above: Performed By: #### L 500.4050, L100.0100, L700.6800, L501.2450 ####[facility] [address] [place], [address] Monocytes/100 WBC (Bld) 6.1 % Normal 0-10 [facility] Comment on above: Performed By: #### L 500.4050, L100.0100, L700.6800, L501.2450 ####[facility] [address] [place], [address] Neutrophils/100 WBC (Bld) 82.2 % High 47-70 [facility] Comment on above: Performed By: #### L 500.4050, L100.0100, L700.6800, L501.2450 ####[facility] [address] [place], [address] Nucleated RBC (Bld) [#/Vol] 0 10*3/uL Normal 0-5 [facility] Comment on above: Performed By: #### L 500.4050, L100.0100, L700.6800, L501.2450 ####[facility] [address] [place], [address] Platelet mean volume (Bld) [Entitic vol] 12.3 fL High 6.2-12.0 [facility] Comment on above: Performed By: #### L 500.4050, L100.0100, L700.6800, L501.2450 ####[facility] [address] [place], [address] Platelets (Bld) [#/Vol] 166 10*3/uL Normal 150-450 [facility] Comment on above: Performed By: #### L 500.4050, L100.0100, L700.6800, L501.2450 ####[facility] [address] [place], [address] RBC (Bld) [#/Vol] 4.40 10*6/uL Normal 4.2-5.4 [facility] Comment on above: Performed By: #### L 500.4050, L100.0100, L700.6800, L501.2450 ####[facility] [address] [place], [address] RDW SD 42.5 fl Normal 35.1-43.9 [facility] Comment on above: Performed By: #### L 500.4050, L100.0100, L700.6800, L501.2450 ####[facility] [address] [place], [address] WBC (Bld) [#/Vol] 17.1 10*3/uL High 4.4-11.0 [facility] Comment on above: Performed By: #### L 500.4050, L100.0100, L700.6800, L501.2450 ####[facility] [address] [place], [address] Comprehensive Metabolic Prof [facility] 10-18-2024 Albumin [Mass/Vol] 3.7 g/dL Normal 3.2-5.0 [facility] Comment on above: Performed By: #### L 500.4050, L100.0100, L700.6800, L501.2450 ####[facility] [address] [place], [address] Albumin/Globulin [Mass ratio] 1.1 {ratio} Normal 0.9-2.4 [facility] Comment on above: Performed By: #### L 500.4050, L100.0100, L700.6800, L501.2450 ####[facility] [address] [place], [address] ALK P 84 U/L Normal 45-117 [facility] Comment on above: Performed By: #### L 500.4050, L100.0100, L700.6800, L501.2450 ####[facility] [address] [place], [address] ALT [Catalytic activity/Vol] 24 U/L Normal 13-56 [facility] Comment on above: Performed By: #### L 500.4050, L100.0100, L700.6800, L501.2450 ####[facility] [address] [place], [address] AST [Catalytic activity/Vol] 14 U/L Low 15-37 [facility] Comment on above: Performed By: #### L 500.4050, L100.0100, L700.6800, L501.2450 ####[facility] [address] [place], [address] Bilirubin [Mass/Vol] 0.40 mg/dL Normal 0.20-1.00 [facility] Comment on above: Result Comment: For patients on eltrombopag therapy, use of Dimension [place] TBIL is not recommended. Performed By: #### L 500.4050, L100.0100, L700.6800, L501.2450 ####[facility] [address] [place], [address] BUN/CRE 19.7 RATIO Normal 10-20 [facility] Comment on above: Performed By: #### L 500.4050, L100.0100, L700.6800, L501.2450 ####[facility] [address] [place], [address] CA,Total 9.4 mg/dL Normal 8.5-10.1 [facility] Comment on above: Performed By: #### L 500.4050, L100.0100, L700.6800, L501.2450 ####[facility] [address] [place], [address] Chloride [Moles/Vol] 109 mmol/L High 98-107 [facility] Comment on above: Performed By: #### L 500.4050, L100.0100, L700.6800, L501.2450 ####[facility] [address] [place], [address] CO2 [Moles/Vol] 25.0 mmol/L Normal 21.0-32.0 [facility] Comment on above: Performed By: #### L 500.4050, L100.0100, L700.6800, L501.2450 ####[facility] [address] [place], [address] Creatinine [Mass/Vol] 0.76 mg/dL Normal 0.55-1.02 [facility] Comment on above: Result Comment: The validity of the calculated GFR GFRAA in patients over70 years has not been determined. Clinical correlation isessential. Performed By: #### L 500.4050, L100.0100, L700.6800, L501.2450 ####[facility] [address] [place], [address] ECRCL 123.05 ml/min Normal [facility] Comment on above: Performed By: #### L 500.4050, L100.0100, L700.6800, L501.2450 ####[facility] [address] [place], [address] EST GFR - AA 115 mL/min Normal >60 [facility] Comment on above: Result Comment: Afri can Panamanian GFR Calc Performed By: #### L 500.4050, L100.0100, L700.6800, L501.2450 ####[facility] [address] [place], [address] GAP 5 Normal 5-15 [facility] Comment on above: Performed By: #### L 500.4050, L100.0100, L700.6800, L501.2450 ####[facility] [address] [place], [address] GFR/1.73 sq M.predicted among non-blacks MDRD (S/P/Bld) [Vol rate/Area] 95 mL/min/{1.73_m2} Normal >60 [facility] Comment on above: Result Comment: Non- GFR Calc Performed By: #### L 500.4050, L100.0100, L700.6800, L501.2450 ####[facility] [address] [place], [address] Globulin (S) [Mass/Vol] 3.4 g/dL Normal 2.2-4.2 [facility] Comment on above: Performed By: #### L 500.4050, L100.0100, L700.6800, L501.2450 ####[facility] [address] [place], [address] Glucose [Mass/Vol] 116 mg/dL High 74-106 [facility] Comment on above: Result Comment: Fast ing Glucose result from 100 to 125 mg/dLsuggests IMPAIRED HOMEOSTASIS per A.D.A. criteria. Performed By: #### L 500.4050, L100.0100, L700.6800, L501.2450 ####[facility] [address] [place], [address] Potassium [Moles/Vol] 4.0 mmol/L Normal 3.5-5.1 [facility] Comment on above: Performed By: #### L 500.4050, L100.0100, L700.6800, L501.2450 ####[facility] [address] [place], [address] Sodium [Moles/Vol] 139 mmol/L Normal 136-145 [facility] Comment on above: Performed By: #### L 500.4050, L100.0100, L700.6800, L501.2450 ####[facility] [address] [place], [address] T PROT 7.1 g/dL Normal 6.4-8.2 [facility] Comment on above: Performed By: #### L 500.4050, L100.0100, L700.6800, L501.2450 ####[facility] [address] [place], [address] Urea nitrogen [Mass/Vol] 15 mg/dL Normal 7-18 [facility] Comment on above: Performed By: #### L 500.4050, L100.0100, L700.6800, L501.2450 ####[facility] [address] [place], [address] Emergency Department Summary on 10-18-2024 Emergency Department Summary Normal [facility] H AND P Exam - Hospitaliston 10-18-2024 H&P Exam - Hospitalist Normal [facility] Lactic Acidon 10-18-2024 Lactate [Moles/Vol] 1.4 mmol/L Normal 0.4-1.9 [facility] Comment on above: Order Comment: Y Performed By: #### L 503.6005, L700.6800 ####[facility] [address] [place], [address] Lipaseon 10-18-2024 Lipase [Catalytic activity/Vol] 18 U/L Low 73-393 [facility] Comment on above: Performed By: #### L 500.4050, L100.0100, L700.6800, L501.2450 ####[facility] [address] [place], [address] M100.678on 10-18-2024 M100.678 SARS-CoV-2 (COVID 19 ) Negative INFLUENZA A Negative INFLUENZA B Negative RSV PCR Negative Normal [facility] Comment on above: Performed By: #### M 100.678 ####[facility] [address] [place], [address] Magnesiumon 10-18-2024 Magnesium [Mass/Vol] 1.8 mg/dL Normal 1.6-2.6 [facility] Comment on above: Order Comment: Comme nts: May add to ED labsComments: may add to ED labs Performed By: #### L 501.5200, L509.7000, L501.2300 ####[facility] [address] [place], [address] Phosphoruson 10-18-2024 Phosphate [Mass/Vol] 3.3 mg/dL Normal 2.5-4.9 [facility] Comment on above: Order Comment: Comme nts: May add to ED labsComments: may add to ED labs Performed By: #### L 501.5200, L509.7000, L501.2300 ####[facility] [address] [place], [address] ,Serum,hCG Quali.on 10-18-2024 HCG, SERUM QUAL Negative Normal [facility] Comment on above: Performed By: #### L 500.4050, L100.0100, L700.6800, L501.2450 ####[facility] [address] [place], [address] HCG, SERUM QUAL Normal [facility] Comment on above: Result Comment: Canc elled via OM: MD Ordered Performed By: #### L 503.6005, L700.6800 ####[facility] [address] [place], [address] INTERNAL QC OK? Normal [facility] Comment on above: Result Comment: Canc elled via OM: MD Ordered Performed By: #### L 503.6005, L700.6800 ####[facility] [address] [place], [address] RECORD KIT LOT# [facility] Comment on above: Result Comment: Canc elled via OM: MD Ordered Performed By: #### L 503.6005, L700.6800 ####[facility] [address] [place], [address] Procalcitoninon 10-18-2024 Procalcitonin 0.07 ng/mL Normal 0.00-0.09 [facility] Comment on above: Result Comment: A [...] Performed By: #### L 501.5200, L509.7000, L501.2300 ####[facility] [address] [place], [address] Urinalysis, Completeon 10-18 BACTERIA 1+ /hpf Normal None Seen [facility] Comment on above: Order Comment: CLEAN CATCH Performed By: #### L 400.0001 ####[facility] [address] [place], [address] EPI,SQUAMOUS 0-5 SEEN Normal 5-10 [facility] Comment on above: Order Comment: CLEAN CATCH Performed By: #### L 400.0001 ####[facility] [address] [place], [address] Mucus Ql (Urine sed) 1+ /hpf Normal [facility] Comment on above: Order Comment: CLEAN CATCH Performed By: #### L 400.0001 ####[facility] [address] [place], [address] RBC 5-10 SEEN Normal 0-5 [facility] Comment on above: Order Comment: CLEAN CATCH Performed By: #### L 400.0001 ####[facility] [address] [place], [address] WBC 10-25 SEEN Normal 0-5 [facility] Comment on above: Order Comment: CLEAN CATCH Performed By: #### L 400.0001 ####[facility] [address] [place], [address] Venous Blood Gason 5 Blood Gas Type ISABELLE Normal [facility] Comment on above: Performed By: #### L 9000.0810 ####[facility] [address] [place], [address] CO2 [Moles/Vol] 26 mmol/L Normal 23-33 [facility] Comment on above: Performed By: #### L 9000.0810 ####[facility] [address] [place], [address] HCO3 (Bld) [Moles/Vol] 25 mmol/L Normal 22-26 [facility] Comment on above: Performed By: #### L 9000.0810 ####[facility] [address] [place], [address] O2 Delivery Dev Room Air Normal [facility] Comment on above: Performed By: #### L 9000.0810 ####[facility] [address] [place], [address] SITE Not entered Normal [facility] Comment on above: Performed By: #### L 9000.0810 ####[facility] [address] [place], [address] VBG BE 0 mmol/L Normal -1.0-3.5 [facility] Comment on above: Performed By: #### L 9000.0810 ####[facility] [address] [place], [address] VBG pCO2 41.6 mmHg Normal 41-51 [facility] Comment on above: Performed By: #### L 9000.0810 ####[facility] [address] [place], [address] VBG pH 7.38 Normal 7.32-7.42 [facility] Comment on above: Performed By: #### L 9000.0810 ####[facility] [address] [place], [address] VBG PO2 32 mmHg Normal 25-40 [facility] Comment on above: Performed By: #### L 9000.0810 ####[facility] [address] [place], [address] VBG SO2 59 Normal 50-70 [facility] Comment on above: Performed By: #### L 9000.0810 ####[facility] [address] [place], [address] Dipak 10-02-2024 GIOVANA Telephone (ENDOIN) DAISYKATHLEEN Swain ([id number]) 1995 F CHT Date Time Provider Department 10/02/24 JESSICA GUERRERO During your visit today, we recorded the following information about you: Nichole Quinteros 10/02/2024 9:53 AM Signed Patient has been identified by name and date of : Yes Type of form: [facility] Physician Order for Insulin Pump Therapy and Diabetes Testing Form received via: abstract When form is completed, fax form to fax number provided. Form has been forwarded to: Provider's mailbox. Provider name: FRIEDA Urena Diamond, STIVEN 10/02/2024 2:45 PM Signed Clinical notes and DWO for infusion supplies placed on providers desk to review and advise. To be faxed to [facility] Medical [phone] Jessica Guerrero APRN.CNP 10/02/2024 3:09 PM Signed Form signed. Jessica Guerrero APRN.Estrellita Viera, STIVEN 10/10/2024 11:49 AM Signed Form re-faxed per [facility] request Allergies As of Date: 10/02/2024 [...] Units subcutaneously every 24 hours. 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 Normal [facility] Basic Metabolic Profile (BMP )on 09-02-2024 BUN/CRE 16.2 RATIO Normal 10-20 [facility] Comment on above: Performed By: #### L 100.0100, L500.2500 ####[facility] [address] [place], [address] CA,Total 9.2 mg/dL Normal 8.5-10.1 [facility] Comment on above: Performed By: #### L 100.0100, L500.2500 ####[facility] [address] [place], [address] Chloride [Moles/Vol] 112 mmol/L High 98-107 [facility] Comment on above: Performed By: #### L 100.0100, L500.2500 ####[facility] [address] [place], [address] CO2 [Moles/Vol] 21.0 mmol/L Normal 21.0-32.0 [facility] Comment on above: Performed By: #### L 100.0100, L500.2500 ####[facility] [address] [place], [address] Creatinine [Mass/Vol] 0.86 mg/dL Normal 0.55-1.02 [facility] Comment on above: Result Comment: The validity of the calculated GFR GFRAA in patients over70 years has not been determined. Clinical correlation isessential. Performed By: #### L 100.0100, L500.2500 ####[facility] [address] [place], [address] ECRCL 99.96 ml/min Normal [facility] Comment on above: Performed By: #### L 100.0100, L500.2500 ####[facility] [address] [place], [address] EST GFR - AA 99 mL/min Normal >60 [facility] Comment on above: Result Comment: Afri can Panamanian GFR Calc Performed By: #### L 100.0100, L500.2500 ####[facility] [address] [place], [address] GAP 10 Normal 5-15 [facility] Comment on above: Performed By: #### L 100.0100, L500.2500 ####[facility] [address] [place], [address] GFR/1.73 sq M.predicted among non-blacks MDRD (S/P/Bld) [Vol rate/Area] 82 mL/min/{1.73_m2} Normal >60 [facility] Comment on above: Result Comment: Non- GFR Calc Performed By: #### L 100.0100, L500.2500 ####[facility] [address] [place], [address] Glucose [Mass/Vol] 129 mg/dL High 74-106 [facility] Comment on above: Result Comment: Fast ing Glucose result greater than or equal to 126 mg/dLsuggests DIABETES MELLITUS per A.D.A. criteria. Performed By: #### L 100.0100, L500.2500 ####[facility] [address] [place], [address] Potassium [Moles/Vol] 3.0 mmol/L Low 3.5-5.1 [facility] Comment on above: Performed By: #### L 100.0100, L500.2500 ####[facility] [address] [place], [address] Sodium [Moles/Vol] 142 mmol/L Normal 136-145 [facility] Comment on above: Performed By: #### L 100.0100, L500.2500 ####[facility] [address] [place], [address] Urea nitrogen [Mass/Vol] 14 mg/dL Normal 7-18 [facility] Comment on above: Performed By: #### L 100.0100, L500.2500 ####[facility] [address] [place], [address] CBC W/Diff, Automatedon 01-0 6-2025 Absolute Lymph 2.60 X10 3/uL Normal 0.83-4.51 [facility] Comment on above: Performed By: #### L 100.0100, L500.2500 ####[facility] [address] [place], [address] Absolute Neut 12.8 X10 3/uL High 2.0-7.7 [facility] Comment on above: Performed By: #### L 100.0100, L500.2500 ####[facility] [address] [place], [address] Basophils/100 WBC (Bld) 0.5 % Normal 0-1 [facility] Comment on above: Performed By: #### L 100.0100, L500.2500 ####[facility] [address] [place], [address] Eosinophils/100 WBC (Bld) 0.4 % Normal 0-5 [facility] Comment on above: Performed By: #### L 100.0100, L500.2500 ####[facility] [address] [place], [address] Erythrocyte distribution width (RBC) [Ratio] 12.6 % Normal 11.6-14.6 [facility] Comment on above: Performed By: #### L 100.0100, L500.2500 ####[facility] [address] [place], [address] Hematocrit (Bld) [Volume fraction] 42.7 % Normal 37-47 [facility] Comment on above: Performed By: #### L 100.0100, L500.2500 ####[facility] [address] [place], [address] Hemoglobin (Bld) [Mass/Vol] 14.1 g/dL Normal 12.0-15.0 [facility] Comment on above: Performed By: #### L 100.0100, L500.2500 ####[facility] [address] [place], [address] IG% 1.000 High 0.0-0.9 [facility] Comment on above: Result Comment: IG% - Immature Granulocytes (promyelocytes, myelocytes andmetamyelocytes) > 1% indicates that a LEFT SHIFT is Present. Performed By: #### L 100.0100, L500.2500 ####[facility] [address] [place], [address] Lymphocytes/100 WBC (Bld) 15.8 % Low 19-41 [facility] Comment on above: Performed By: #### L 100.0100, L500.2500 ####[facility] [address] [place], [address] MCH (RBC) [Entitic mass] 28.9 pg Normal 27.0-32.0 [facility] Comment on above: Performed By: #### L 100.0100, L500.2500 ####[facility] [address] [place], [address] MCHC (RBC) [Mass/Vol] 33.0 g/dL Normal 32-36 [facility] Comment on above: Performed By: #### L 100.0100, L500.2500 ####[facility] [address] [place], [address] MCV (RBC) [Entitic vol] 87.5 fL Normal 81-99 [facility] Comment on above: Performed By: #### L 100.0100, L500.2500 ####[facility] [address] [place], [address] Monocytes/100 WBC (Bld) 4.6 % Normal 0-10 [facility] Comment on above: Performed By: #### L 100.0100, L500.2500 ####[facility] [address] [place], [address] Neutrophils/100 WBC (Bld) 77.7 % High 47-70 [facility] Comment on above: Performed By: #### L 100.0100, L500.2500 ####[facility] [address] [place], [address] Nucleated RBC (Bld) [#/Vol] 0 10*3/uL Normal 0-5 [facility] Comment on above: Performed By: #### L 100.0100, L500.2500 ####[facility] [address] [place], [address] Platelet mean volume (Bld) [Entitic vol] 12.5 fL High 6.2-12.0 [facility] Comment on above: Performed By: #### L 100.0100, L500.2500 ####[facility] [address] [place], [address] Platelets (Bld) [#/Vol] 199 10*3/uL Normal 150-450 [facility] Comment on above: Performed By: #### L 100.0100, L500.2500 ####[facility] [address] [place], [address] RBC (Bld) [#/Vol] 4.88 10*6/uL Normal 4.2-5.4 [facility] Comment on above: Performed By: #### L 100.0100, L500.2500 ####[facility] [address] [place], [address] RDW SD 40.3 fl Normal 35.1-43.9 [facility] Comment on above: Performed By: #### L 100.0100, L500.2500 ####[facility] [address] [place], [address] WBC (Bld) [#/Vol] 16.5 10*3/uL High 4.4-11.0 [facility] Comment on above: Performed By: #### L 100.0100, L500.2500 ####[facility] [address] [place], [address] Emergency Department Summary on 09-02-2024 Emergency Department Summary Normal [facility] Urinalysis, Completeon 09-02 BACTERIA 2+ /hpf Normal None Seen [facility] Comment on above: Order Comment: CLEAN CATCH Performed By: #### L 400.0001 ####[facility] [address] [place], [address] EPI,SQUAMOUS 0-5 SEEN Normal 5-10 [facility] Comment on above: Order Comment: CLEAN CATCH Performed By: #### L 400.0001 ####[facility] [address] [place], [address] Mucus Ql (Urine sed) RARE Normal [facility] Comment on above: Order Comment: CLEAN CATCH Performed By: #### L 400.0001 ####[facility] [address] [place], [address] WBC 0-5 SEEN Normal 0-5 [facility] Comment on above: Order Comment: CLEAN CATCH Performed By: #### L 400.0001 ####[facility] [address] [place], [address] RBC 0 SEEN Normal 0-5 [facility] Comment on above: Order Comment: CLEAN CATCH Performed By: #### L 400.0001 ####[facility] [address] [place], [address] 36on 08-07-2024 36 Medication: Skyrizi 150mg/ml Dosing Schedule: 150mg every 12 weeks Prior Authorization: Submitted date: 08.07.2024 [place] reference #: [id number] Approval dates: 08.07.2024-08.27.2024 [facility] [phone] [facility] Urine Cultureon 08-04-2024 [facility] Mixed Gram Positive Organisms Hodgen Count 11,000-25,000 [facility] Mixed contaminants. Submit a new specimen if indicated. Normal [facility] Comment on above: Performed By: #### M 100.2200 ####[facility] [address] [place], [address] Basic Metabolic Profile (BMP )on 08-03-2024 BUN/CRE 9.9 RATIO Low 10-20 [facility] Comment on above: Order Comment: Call MD with results STAT Performed By: #### L 501.2300, L500.2500, L501.9520 ####[facility] [address] [place], [address] CA,Total 7.9 mg/dL Low 8.5-10.1 [facility] Comment on above: Order Comment: Call MD with results STAT Performed By: #### L 501.2300, L500.2500, L501.9520 ####[facility] [address] [place], [address] Chloride [Moles/Vol] 114 mmol/L High 98-107 [facility] Comment on above: Order Comment: Call MD with results STAT Performed By: #### L 501.2300, L500.2500, L501.9520 ####[facility] [address] [place], [address] CO2 [Moles/Vol] 22.0 mmol/L Normal 21.0-32.0 [facility] Comment on above: Order Comment: Call MD with results STAT Performed By: #### L 501.2300, L500.2500, L501.9520 ####[facility] [address] [place], [address] Creatinine [Mass/Vol] 0.61 mg/dL Normal 0.55-1.02 [facility] Comment on above: Order Comment: Call MD with results STAT Result Comment: The validity of the calculated GFR GFRAA in patients over70 years has not been determined. Clinical correlation isessential. Performed By: #### L 501.2300, L500.2500, L501.9520 ####[facility] [address] [place], [address] ECRCL 140.93 ml/min Normal [facility] Comment on above: Order Comment: Call MD with results STAT Performed By: #### L 501.2300, L500.2500, L501.9520 ####[facility] [address] [place], [address] EST GFR - AA 149 mL/min Normal >60 [facility] Comment on above: Order Comment: Call MD with results STAT Result Comment: Afri can Panamanian GFR Calc Performed By: #### L 501.2300, L500.2500, L501.9520 ####[facility] [address] [place], [address] GAP 5 Normal 5-15 [facility] Comment on above: Order Comment: Call MD with results STAT Performed By: #### L 501.2300, L500.2500, L501.9520 ####[facility] [address] [place], [address] GFR/1.73 sq M.predicted among non-blacks MDRD (S/P/Bld) [Vol rate/Area] 123 mL/min/{1.73_m2} Normal >60 [facility] Comment on above: Order Comment: Call MD with results STAT Result Comment: Non- GFR Calc Performed By: #### L 501.2300, L500.2500, L501.9520 ####[facility] [address] [place], [address] Glucose [Mass/Vol] 193 mg/dL High 74-106 [facility] Comment on above: Order Comment: Call MD with results STAT Result Comment: Fast ing Glucose result greater than or equal to 126 mg/dLsuggests DIABETES MELLITUS per A.D.A. criteria. Performed By: #### L 501.2300, L500.2500, L501.9520 ####[facility] [address] [place], [address] Potassium [Moles/Vol] 4.5 mmol/L Normal 3.5-5.1 [facility] Comment on above: Order Comment: Call MD with results STAT Result Comment: Slig ht Hemolysis, Result may be falsely increased. Performed By: #### L 501.2300, L500.2500, L501.9520 ####[facility] [address] [place], [address] Sodium [Moles/Vol] 140 mmol/L Normal 136-145 [facility] Comment on above: Order Comment: Call with results STAT Performed By: #### L 501.2300, L500.2500, L501.9520 ####[facility] [address] [place], [address] Urea nitrogen [Mass/Vol] 6 mg/dL Low 7-18 [facility] Comment on above: Order Comment: Call with results STAT Performed By: #### L 501.2300, L500.2500, L501.9520 ####[facility] [address] [place], [address] BUN Normal 7-18 [facility] Comment on above: Order Comment: Call with results STAT Result Comment: @NOT NEEDED BY [employer] Performed By: #### L 500.2500 ####[facility] [address] [place], [address] BUN/CRE Normal 10-20 [facility] Comment on above: Order Comment: Call with results STAT Result Comment: @NOT NEEDED BY [employer] Performed By: #### L 500.2500 ####[facility] [address] [place], [address] CA,Total Normal 8.5-10.1 [facility] Comment on above: Order Comment: Call MD with results STAT Result Comment: @NOT NEEDED BY TMPETRONAR2 CLAY WORKER Performed By: #### L 500.2500 ####[facility] [address] [place] [id number] CL Normal 98-107 [facility] Comment on above: Order Comment: Call MD with results STAT Result Comment: @NOT NEEDED BY TMPETRONAR2 CLAY WORKER Performed By: #### L 500.2500 ####[facility] [address] [place] [id number] CO2 Normal 21.0-32.0 [facility] Comment on above: Order Comment: Call MD with results STAT Result Comment: @NOT NEEDED BY TMPETRONAR2 CLAY WORKER Performed By: #### L 500.2500 ####[facility] [address] [place] [phone] CREAT,SERUM Normal 0.55-1.02 [facility] Comment on above: Order Comment: Call MD with results STAT Result Comment: @NOT NEEDED BY TMPETRONAR2 C[employer] WORKER Performed By: #### L 500.2500 ####[facility] [address] [place] [phone] EST GFR Normal >60 [facility] Comment on above: Order Comment: Call MD with results STAT Result Comment: @NOT NEEDED BY ROLANR2 CLAY WORKER Performed By: #### L 500.2500 ####[facility] [address] [place] [phone] EST GFR - AA Normal >60 [facility] Comment on above: Order Comment: Call MD with results STAT Result Comment: @NOT NEEDED BY TMPETRONAR2 C[employer] WORKER Performed By: #### L 500.2500 ####[facility] [address] [place], [address] GAP Normal 5-15 [facility] Comment on above: Order Comment: Call MD with results STAT Result Comment: @NOT NEEDED BY ROLANR2 CLAY WORKER Performed By: #### L 500.2500 ####[facility] [address] [place], [address] GLU Normal 74-106 [facility] Comment on above: Order Comment: Call MD with results STAT Result Comment: @NOT NEEDED BY TMPETRONAR2 C[employer] WORKER Performed By: #### L 500.2500 ####[facility] [address] [place], [address] Potassium Normal 3.5-5.1 [facility] Comment on above: Order Comment: Call MD with results STAT Result Comment: @NOT NEEDED BY ROLANR2 C[employer] WORKER Performed By: #### L 500.2500 ####[facility] [address] [place], [address] Basic Metabolic Profile (BMP) Normal 136-145 [facility] Comment on above: Order Comment: Call MD with results STAT Result Comment: @NOT NEEDED BY ROLANR2 C[employer] WORKER Performed By: #### L 500.2500 ####[facility] [address] [place], [address] Bedside Glucoseon 08-03-2024 FINGERSTICK GLU 212 mg/dL High 74-106 [facility] Comment on above: Result Comment: EDGAR GEMENT OF PATIENT CARE PER NURSING PROTOCOL Performed By: #### L 501.080 ####[facility] [address] [place], [address] FINGERSTICK GLU 256 mg/dL High 74-106 [facility] Comment on above: Result Comment: EDGAR GEMENT OF PATIENT CARE PER NURSING PROTOCOL Performed By: #### L 501.080 ####[facility] [address] [place], [address] FINGERSTICK GLU 153 mg/dL High 74-106 [facility] Comment on above: Result Comment: EDGAR HUNG OF PATIENT CARE PER NURSING PROTOCOL Performed By: #### L 501.080 ####[facility] [address] [place], [address] Discharge Instructionon 12-0 Discharge Instruction Normal [facility] Phosphoruson 08-03-2024 Phosphate [Mass/Vol] 1.8 mg/dL Low 2.5-4.9 [facility] Comment on above: Order Comment: Call MD with results STAT Performed By: #### L 501.2300, L500.2500, L501.9520 ####[facility] [address] [place], [address] Thyroid Stim Hormone (TSH)on 08-03-2024 TSH 2.360 uIU/mL Normal 0.358-3.740 [facility] Comment on above: Order Comment: Call MD with results STAT Performed By: #### L 501.2300, L500.2500, L501.9520 ####[facility] [address] [place], [address] Acetone Serumon 08-02-2024 ACETONE SERUM Negative Normal NEG [facility] Comment on above: Performed By: #### L 501.6900 ####[facility] [address] [place], [address] ACETONE SERUM SMALL Abnormal NEG [facility] Comment on above: Result Comment: RESU LTS CALLED TO [facility] 08/02/24 0107 Jhoana Martínez.REPORT READ BACK BY SAME. Performed By: #### L 503.6005, L100.0100, L501.6900, L500.3400, L501.5200, L501.2450, L500.2500, L700.6800 ####[facility] [address] [place], [address] Basic Metabolic Profile (BMP )on 08-02-2024 BUN Normal 7-18 [facility] Comment on above: Order Comment: Call MD with results STAT Result Comment: @NOT NEEDED BY PETRONAR2 C[employer] WORKER Performed By: #### L 500.2500 ####[facility] [address] [place], [address] BUN/CRE Normal 10-20 [facility] Comment on above: Order Comment: Call MD with results STAT Result Comment: @NOT NEEDED BY PETRONAR2 C[employer] WORKER Performed By: #### L 500.2500 ####[facility] [address] [place], [address] CA,Total Normal 8.5-10.1 [facility] Comment on above: Order Comment: Call MD with results STAT Result Comment: @NOT NEEDED BY PETRONAR2 C[employer] WORKER Performed By: #### L 500.2500 ####[facility] [address] [place], [address] CL Normal 98-107 [facility] Comment on above: Order Comment: Call MD with results STAT Result Comment: @NOT NEEDED BY PETRONAR2 C[employer] WORKER Performed By: #### L 500.2500 ####[facility] [address] [place], [address] CO2 Normal 21.0-32.0 [facility] Comment on above: Order Comment: Call MD with results STAT Result Comment: @NOT [facility] Performed By: #### L 500.2500 ####[facility] [address] [place], [address] CREAT,SERUM Normal 0.55-1.02 [facility] Comment on above: Order Comment: Call MD with results STAT Result Comment: @NOT NEEDED BY TMPETRONAR2 CLAY WORKER Performed By: #### L 500.2500 ####[facility] [address] [place], [address] EST GFR Normal >60 [facility] Comment on above: Order Comment: Call MD with results STAT Result Comment: @NOT NEEDED BY TMPETRONAR2 CLAY WORKER Performed By: #### L 500.2500 ####[facility] [address] [place], [address] EST GFR - AA Normal >60 [facility] Comment on above: Order Comment: Call MD with results STAT Result Comment: @NOT NEEDED BY TMPETRONAR2 CLAY WORKER Performed By: #### L 500.2500 ####[facility] [address] [place], [address] GAP Normal 5-15 [facility] Comment on above: Order Comment: Call MD with results STAT Result Comment: @NOT NEEDED BY TMPETRONAR2 CLAY WORKER Performed By: #### L 500.2500 ####[facility] [address] [place], [address] GLU Normal 74-106 [facility] Comment on above: Order Comment: Call MD with results STAT Result Comment: @NOT NEEDED BY TMPETRONAR2 CLAY WORKER Performed By: #### L 500.2500 ####[facility] [address] [place], [address] Potassium Normal 3.5-5.1 [facility] Comment on above: Order Comment: Call MD with results STAT Result Comment: @NOT NEEDED BY TMPETRONAR2 C[employer] WORKER Performed By: #### L 500.2500 ####[facility] [address] [place], [address] Basic Metabolic Profile (BMP) Normal 136-145 [facility] Comment on above: Order Comment: Call MD with results STAT Result Comment: @NOT NEEDED BY TMPETRONAR2 CLAY WORKER Performed By: #### L 500.2500 ####[facility] [address] [place], [address] BUN Normal 7-18 [facility] Comment on above: Order Comment: Call MD with results STAT Result Comment: @NOT NEEDED BY TMPETRONAR2 CLAY WORKER Performed By: #### L 500.2500 ####[facility] [address] [place], [address] BUN/CRE Normal 10-20 [facility] Comment on above: Order Comment: Call MD with results STAT Result Comment: @NOT NEEDED BY ROLANR2 CLAY WORKER Performed By: #### L 500.2500 ####[facility] [address] [place], [address] CA,Total Normal 8.5-10.1 [facility] Comment on above: Order Comment: Call MD with results STAT Result Comment: @NOT NEEDED BY ROLANR2 CLAY WORKER Performed By: #### L 500.2500 ####[facility] [address] [place], [address] CL Normal 98-107 [facility] Comment on above: Order Comment: Call MD with results STAT Result Comment: @NOT NEEDED BY PETRONAR2 CLAY WORKER Performed By: #### L 500.2500 ####[facility] [address] [place], [address] CO2 Normal 21.0-32.0 [facility] Comment on above: Order Comment: Call MD with results STAT Result Comment: @NOT NEEDED BY ROLANR2 CLAY WORKER Performed By: #### L 500.2500 ####[facility] [address] [place], [address] CREAT,SERUM Normal 0.55-1.02 [facility] Comment on above: Order Comment: Call with results STAT Result Comment: @NOT NEEDED BY ROLANR2 CLAY WORKER Performed By: #### L 500.2500 ####[facility] [address] [place], [address] EST GFR Normal >60 [facility] Comment on above: Order Comment: Call with results STAT Result Comment: @NOT NEEDED BY ROLANR2 CLAY WORKER Performed By: #### L 500.2500 ####[facility] [address] [place], [address] EST GFR - AA Normal >60 [facility] Comment on above: Order Comment: Call MD with results STAT Result Comment: @NOT NEEDED BY PETRONAR2 CLAY WORKER Performed By: #### L 500.2500 ####[facility] [address] [place], [address] GAP Normal 5-15 [facility] Comment on above: Order Comment: Call MD with results STAT Result Comment: @NOT NEEDED BY [facility] Performed By: #### L 500.2500 ####[facility] [address] [place], [address] GLU Normal 74-106 [facility] Comment on above: Order Comment: Call MD with results STAT Result Comment: @NOT NEEDED BY TMPETRONAR2 CLAY WORKER Performed By: #### L 500.2500 ####[facility] [address] [place], [address] Potassium Normal 3.5-5.1 [facility] Comment on above: Order Comment: Call MD with results STAT Result Comment: @NOT NEEDED BY PETRONAR2 CLAY WORKER Performed By: #### L 500.2500 ####[facility] [address] [place], [address] Basic Metabolic Profile (BMP) Normal 136-145 [facility] Comment on above: Order Comment: Call MD with results STAT Result Comment: @NOT NEEDED [facility] Performed By: #### L 500.2500 ####[facility] [address] [place], [address] BUN/CRE 11.7 RATIO Normal 10-20 [facility] Comment on above: Order Comment: Call MD with results STAT Performed By: #### L 500.2500 ####[facility] [address] [place], [address] CA,Total 7.7 mg/dL Low 8.5-10.1 [facility] Comment on above: Order Comment: Call MD with results STAT Performed By: #### L 500.2500 ####[facility] [address] [place], [address] Chloride [Moles/Vol] 116 mmol/L High 98-107 [facility] Comment on above: Order Comment: Call MD with results STAT Performed By: #### L 500.2500 ####[facility] [address] [place], [address] CO2 [Moles/Vol] 21.0 mmol/L Normal 21.0-32.0 [facility] Comment on above: Order Comment: Call MD with results STAT Performed By: #### L 500.2500 ####[facility] [address] [place], [address] Creatinine [Mass/Vol] 0.68 mg/dL Normal 0.55-1.02 [facility] Comment on above: Order Comment: Call MD with results STAT Result Comment: The validity of the calculated GFR GFRAA in patients over70 years has not been determined. Clinical correlation isessential. Performed By: #### L 500.2500 ####[facility] [address] [place], [address] ECRCL 126.42 ml/min Normal [facility] Comment on above: Order Comment: Call MD with results STAT Performed By: #### L 500.2500 ####[facility] [address] [place], [address] EST GFR - AA 130 mL/min Normal >60 [facility] Comment on above: Order Comment: Call MD with results STAT Result Comment: Afri can Panamanian GFR Calc Performed By: #### L 500.2500 ####[facility] [address] [place], [address] GAP 5 Normal 5-15 [facility] Comment on above: Order Comment: Call MD with results STAT Performed By: #### L 500.2500 ####[facility] [address] [place], [address] GFR/1.73 sq M.predicted among non-blacks MDRD (S/P/Bld) [Vol rate/Area] 107 mL/min/{1.73_m2} Normal >60 [facility] Comment on above: Order Comment: Call MD with results STAT Result Comment: Non- GFR Calc Performed By: #### L 500.2500 ####[facility] [address] [place], [address] Glucose [Mass/Vol] 116 mg/dL High 74-106 [facility] Comment on above: Order Comment: Call MD with results STAT Result Comment: Fast ing Glucose result from 100 to 125 mg/dLsuggests IMPAIRED HOMEOSTASIS per A.D.A. criteria. Performed By: #### L 500.2500 ####[facility] [address] [place], [address] Potassium [Moles/Vol] 3.8 mmol/L Normal 3.5-5.1 [facility] Comment on above: Order Comment: Call MD with results STAT Performed By: #### L 500.2500 ####[facility] [address] [place], [address] Sodium [Moles/Vol] 141 mmol/L Normal 136-145 [facility] Comment on above: Order Comment: Call MD with results STAT Performed By: #### L 500.2500 ####[facility] [address] [place], [address] Urea nitrogen [Mass/Vol] 8 mg/dL Normal 7-18 [facility] Comment on above: Order Comment: Call MD with results STAT Performed By: #### L 500.2500 ####[facility] [address] [place], [address] BUN Normal 7-18 [facility] Comment on above: Order Comment: Call MD with results STAT Result Comment: NO S PECIMEN DRAWN Performed By: #### L 500.2500 ####[facility] [address] [place], [address] BUN/CRE Normal 10-20 [facility] Comment on above: Order Comment: Call MD with results STAT Result Comment: NO S PECIMEN DRAWN Performed By: #### L 500.2500 ####[facility] [address] [place], [address] CA,Total Normal 8.5-10.1 [facility] Comment on above: Order Comment: Call MD with results STAT Result Comment: NO S PECIMEN DRAWN Performed By: #### L 500.2500 ####[facility] [address] [place], [address] CL Normal 98-107 [facility] Comment on above: Order Comment: Call MD with results STAT Result Comment: NO S PECIMEN DRAWN Performed By: #### L 500.2500 ####[facility] [address] [place], [address] CO2 Normal 21.0-32.0 [facility] Comment on above: Order Comment: Call MD with results STAT Result Comment: NO S PECIMEN DRAWN Performed By: #### L 500.2500 ####[facility] [address] [place], [address] CREAT,SERUM Normal 0.55-1.02 [facility] Comment on above: Order Comment: Call MD with results STAT Result Comment: NO S PECIMEN DRAWN Performed By: #### L 500.2500 ####[facility] [address] [place], [address] EST GFR Normal >60 [facility] Comment on above: Order Comment: Call MD with results STAT Result Comment: NO S PECIMEN DRAWN Performed By: #### L 500.2500 ####[facility] [address] [place], [address] EST GFR - AA Normal >60 [facility] Comment on above: Order Comment: Call MD with results STAT Result Comment: NO S PECIMEN DRAWN Performed By: #### L 500.2500 ####[facility] [address] [place], [address] GAP Normal 5-15 [facility] Comment on above: Order Comment: Call MD with results STAT Result Comment: NO S PECIMEN DRAWN Performed By: #### L 500.2500 ####[facility] [address] [place], [address] GLU Normal 74-106 [facility] Comment on above: Order Comment: Call MD with results STAT Result Comment: NO S PECIMEN DRAWN Performed By: #### L 500.2500 ####[facility] [address] [place], [address] Potassium Normal 3.5-5.1 [facility] Comment on above: Order Comment: Call MD with results STAT Result Comment: NO S PECIMEN DRAWN Performed By: #### L 500.2500 ####[facility] [address] [place], [address] Basic Metabolic Profile (BMP) Normal 136-145 [facility] Comment on above: Order Comment: Call MD with results STAT Result Comment: NO S PECIMEN DRAWN Performed By: #### L 500.2500 ####[facility] [address] [place], [address] BUN Normal 7-18 [facility] Comment on above: Order Comment: Call MD with results STAT Result Comment: NO S PECIMEN DRAWN Performed By: #### L 500.2500, L501.9985 ####[facility] [address] [place], [address] BUN/CRE Normal 10-20 [facility] Comment on above: Order Comment: Call MD with results STAT Result Comment: NO S PECIMEN DRAWN Performed By: #### L 500.2500, L501.9985 ####[facility] [address] [place], [address] CA,Total Normal 8.5-10.1 [facility] Comment on above: Order Comment: Call MD with results STAT Result Comment: NO S PECIMEN DRAWN Performed By: #### L 500.2500, L501.9985 ####[facility] [address] [place], [address] CL Normal 98-107 [facility] Comment on above: Order Comment: Call MD with results STAT Result Comment: NO S PECIMEN DRAWN Performed By: #### L 500.2500, L501.9985 ####[facility] [address] [place], [address] CO2 Normal 21.0-32.0 [facility] Comment on above: Order Comment: Call MD with results STAT Result Comment: NO S PECIMEN DRAWN Performed By: #### L 500.2500, L501.9985 ####[facility] [address] [place], [address] CREAT,SERUM Normal 0.55-1.02 [facility] Comment on above: Order Comment: Call MD with results STAT Result Comment: NO S PECIMEN DRAWN Performed By: #### L 500.2500, L501.9985 ####[facility] [address] [place], [address] EST GFR Normal >60 [facility] Comment on above: Order Comment: Call MD with results STAT Result Comment: NO S PECIMEN DRAWN Performed By: #### L 500.2500, L501.85 ####[facility] [address] [place], [address] EST GFR - AA Normal >60 [facility] Comment on above: Order Comment: Call MD with results STAT Result Comment: NO S PECIMEN DRAWN Performed By: #### L 500.2500, L501.9985 ####[facility] [address] [place], [address] GAP Normal 5-15 [facility] Comment on above: Order Comment: Call MD with results STAT Result Comment: NO S PECIMEN DRAWN Performed By: #### L 500.2500, L501.9985 ####[facility] [address] [place], [address] GLU Normal 74-106 [facility] Comment on above: Order Comment: Call MD with results STAT Result Comment: NO S PECIMEN DRAWN Performed By: #### L 500.2500, L501.9985 ####[facility] [address] [place], [address] Potassium Normal 3.5-5.1 [facility] Comment on above: Order Comment: Call MD with results STAT Result Comment: NO S PECIMEN DRAWN Performed By: #### L 500.2500, L501.9985 ####[facility] [address] [place], [address] Basic Metabolic Profile (BMP) Normal 136-145 [facility] Comment on above: Order Comment: Call MD with results STAT Result Comment: NO S PECIMEN DRAWN Performed By: #### L 500.2500, L501.9985 ####[facility] [address] [place], [address] BUN/CRE 16.6 RATIO Normal 10-20 [facility] Comment on above: Performed By: #### L 503.6005, L100.0100, L501.6900, L500.3400, L501.5200, L501.2450, L500.2500, L700.6800 ####[facility] [address] [place], [address] CA,Total 8.9 mg/dL Normal 8.5-10.1 [facility] Comment on above: Performed By: #### L 503.6005, L100.0100, L501.6900, L500.3400, L501.5200, L501.2450, L500.2500, L700.6800 ####[facility] [address] [place], [address] Chloride [Moles/Vol] 107 mmol/L Normal 98-107 [facility] Comment on above: Performed By: #### L 503.6005, L100.0100, L501.6900, L500.3400, L501.5200, L501.2450, L500.2500, L700.6800 ####[facility] [address] [place], [place], [phone]([phone] CO2 [Moles/Vol] 17.0 mmol/L Low 21.0-32.0 [facility] Comment on above: Performed By: #### L 503.6005, L100.0100, L501.6900, L500.3400, L501.5200, L501.2450, L500.2500, L700.6800 ####[facility] [address] [place], [address] Creatinine [Mass/Vol] 0.84 mg/dL Normal 0.55-1.02 [facility] Comment on above: Result Comment: The validity of the calculated GFR GFRAA in patients over70 years has not been determined. Clinical correlation isessential. Performed By: #### L 503.6005, L100.0100, L501.6900, L500.3400, L501.5200, L501.2450, L500.2500, L700.6800 ####[facility] [address] [place], [place], [phone]([phone]) ECRCL 102.34 ml/min Normal [facility] Comment on above: Performed By: #### L 503.6005, L100.0100, L501.6900, L500.3400, L501.5200, L501.2450, L500.2500, L700.6800 ####[facility] [address] [place], [address] EST GFR - AA 102 mL/min Normal >60 [facility] Comment on above: Result Comment: Afri can Panamanian GFR Calc Performed By: #### L 503.6005, L100.0100, L501.6900, L500.3400, L501.5200, L501.2450, L500.2500, L700.6800 ####[facility] [address] [place], [place], [id number] GAP 14 Normal 5-15 [facility] Comment on above: Performed By: #### L 503.6005, L100.0100, L501.6900, L500.3400, L501.5200, L501.2450, L500.2500, L700.6800 ####[facility] [address] [place], [address] GFR/1.73 sq M.predicted among non-blacks MDRD (S/P/Bld) [Vol rate/Area] 84 mL/min/{1.73_m2} Normal >60 [facility] Comment on above: Result Comment: Non- GFR Calc Performed By: #### L 503.6005, L100.0100, L501.6900, L500.3400, L501.5200, L501.2450, L500.2500, L700.6800 ####[facility] [address] [place], [place], [id number] Glucose [Mass/Vol] 253 mg/dL High 74-106 [facility] Comment on above: Result Comment: Gluc ose result greater than or equal to 200 mg/dLsuggests DIABETES MELLITUS per A.D.A. criteria. Performed By: #### L 503.6005, L100.0100, L501.6900, L500.3400, L501.5200, L501.2450, L500.2500, L700.6800 ####[facility] [address] [place], [place], [id number] Potassium [Moles/Vol] 3.4 mmol/L Low 3.5-5.1 [facility] Comment on above: Performed By: #### L 503.6005, L100.0100, L501.6900, L500.3400, L501.5200, L501.2450, L500.2500, L700.6800 ####[facility] [address] [place], [address] Sodium [Moles/Vol] 139 mmol/L Normal 136-145 [facility] Comment on above: Performed By: #### L 503.6005, L100.0100, L501.6900, L500.3400, L501.5200, L501.2450, L500.2500, L700.6800 ####[facility] [address] [place], [address] Urea nitrogen [Mass/Vol] 14 mg/dL Normal 7-18 [facility] Comment on above: Performed By: #### L 503.6005, L100.0100, L501.6900, L500.3400, L501.5200, L501.2450, L500.2500, L700.6800 ####[facility] [address] [place], [address] Bedside Glucoseon 08-02-2024 FINGERSTICK GLU 246 mg/dL High 74-106 [facility] Comment on above: Result Comment: EDGAR GEMENT OF PATIENT CARE PER NURSING PROTOCOL Performed By: #### L 501.080 ####[facility] [address] [place], [address] FINGERSTICK GLU 77 mg/dL Normal 74-106 [facility] Comment on above: Result Comment: EDGAR GEMENT OF PATIENT CARE PER NURSING PROTOCOL Performed By: #### L 501.080 ####[facility] [address] [place], [address] FINGERSTICK GLU 90 mg/dL Normal 74-106 [facility] Comment on above: Result Comment: EDGAR GEMENT OF PATIENT CARE PER NURSING PROTOCOL Performed By: #### L 501.080 ####[facility] [address] [place], [address] FINGERSTICK GLU 163 mg/dL High 74-106 [facility] Comment on above: Result Comment: EDGAR GEMENT OF PATIENT CARE PER NURSING PROTOCOL Performed By: #### L 501.080 ####[facility] [address] [place], [address] FINGERSTICK GLU 102 mg/dL Normal 74-106 [facility] Comment on above: Result Comment: EDGAR GEMENT OF PATIENT CARE PER NURSING PROTOCOL Performed By: #### L 501.080 ####[facility] [address] [place], [address] FINGERSTICK GLU 147 mg/dL High 74-106 [facility] Comment on above: Result Comment: EDGAR GEMENT OF PATIENT CARE PER NURSING PROTOCOL Performed By: #### L 501.080 ####[facility] [address] [place], [address] FINGERSTICK GLU 83 mg/dL Normal 74-106 [facility] Comment on above: Result Comment: EDGAR GEMENT OF PATIENT CARE PER NURSING PROTOCOL Performed By: #### L 501.080 ####[facility] [address] [place], [address] FINGERSTICK GLU 121 mg/dL High 74-106 [facility] Comment on above: Result Comment: EDGAR GEMENT OF PATIENT CARE PER NURSING PROTOCOL Performed By: #### L 501.080 ####[facility] [address] [place], [address] FINGERSTICK GLU 95 mg/dL Normal 74-106 [facility] Comment on above: Result Comment: EDGAR GEMENT OF PATIENT CARE PER NURSING PROTOCOL Performed By: #### L 501.080 ####[facility] [address] [place], [address] FINGERSTICK GLU 123 mg/dL High 74-106 [facility] Comment on above: Result Comment: EDGAR GEMENT OF PATIENT CARE PER NURSING PROTOCOL Performed By: #### L 501.080 ####[facility] [address] [place], [address] FINGERSTICK GLU 147 mg/dL High 74-106 [facility] Comment on above: Result Comment: EDGAR GEMENT OF PATIENT CARE PER NURSING PROTOCOL Performed By: #### L 501.080 ####[facility] [address] [place], [address] FINGERSTICK GLU 263 mg/dL High 74-106 [facility] Comment on above: Result Comment: EDGAR GEMENT OF PATIENT CARE PER NURSING PROTOCOL Performed By: #### L 501.080 ####[facility] [address] [place], [address] FINGERSTICK GLU 251 mg/dL High 74-106 [facility] Comment on above: Result Comment: EDGAR GEMENT OF PATIENT CARE PER NURSING PROTOCOL Performed By: #### L 501.080 ####[facility] [address] [place], [address] CBC W/Diff, Automatedon 12-0 Absolute Lymph 1.00 X10 3/uL Normal 0.83-4.51 [facility] Comment on above: Performed By: #### L 503.6005, L100.0100, L501.6900, L500.3400, L501.5200, L501.2450, L500.2500, L700.6800 ####[facility] [address] [place], [address] Absolute Neut 11.9 X10 3/uL High 2.0-7.7 [facility] Comment on above: Performed By: #### L 503.6005, L100.0100, L501.6900, L500.3400, L501.5200, L501.2450, L500.2500, L700.6800 ####[facility] [address] [place], [address] Basophils/100 WBC (Bld) 0.2 % Normal 0-1 [facility] Comment on above: Performed By: #### L 503.6005, L100.0100, L501.6900, L500.3400, L501.5200, L501.2450, L500.2500, L700.6800 ####[facility] [address] [place], [address] Eosinophils/100 WBC (Bld) 0.0 % Normal 0-5 [facility] Comment on above: Performed By: #### L 503.6005, L100.0100, L501.6900, L500.3400, L501.5200, L501.2450, L500.2500, L700.6800 ####[facility] [address] [place], [address] Erythrocyte distribution width (RBC) [Ratio] 12.3 % Normal 11.6-14.6 [facility] Comment on above: Performed By: #### L 503.6005, L100.0100, L501.6900, L500.3400, L501.5200, L501.2450, L500.2500, L700.6800 ####[facility] [address] [place], [address] Hematocrit (Bld) [Volume fraction] 38.3 % Normal 37-47 [facility] Comment on above: Performed By: #### L 503.6005, L100.0100, L501.6900, L500.3400, L501.5200, L501.2450, L500.2500, L700.6800 ####[facility] [address] [place], [address] Hemoglobin (Bld) [Mass/Vol] 13.0 g/dL Normal 12.0-15.0 [facility] Comment on above: Performed By: #### L 503.6005, L100.0100, L501.6900, L500.3400, L501.5200, L501.2450, L500.2500, L700.6800 ####[facility] [address] [place], [address] IG% 0.600 Normal 0.0-0.9 [facility] Comment on above: Result Comment: IG% - Immature Granulocytes (promyelocytes, myelocytes andmetamyelocytes) > 1% indicates that a LEFT SHIFT is Present. Performed By: #### L 503.6005, L100.0100, L501.6900, L500.3400, L501.5200, L501.2450, L500.2500, L700.6800 ####[facility] [address] [place], [address] Lymphocytes/100 WBC (Bld) 7.5 % Low 19-41 [facility] Comment on above: Performed By: #### L 503.6005, L100.0100, L501.6900, L500.3400, L501.5200, L501.2450, L500.2500, L700.6800 ####[facility] [address] [place], [address] MCH (RBC) [Entitic mass] 29.7 pg Normal 27.0-32.0 [facility] Comment on above: Performed By: #### L 503.6005, L100.0100, L501.6900, L500.3400, L501.5200, L501.2450, L500.2500, L700.6800 ####[facility] [address] [place], [address] MCHC (RBC) [Mass/Vol] 33.9 g/dL Normal 32-36 [facility] Comment on above: Performed By: #### L 503.6005, L100.0100, L501.6900, L500.3400, L501.5200, L501.2450, L500.2500, L700.6800 ####[facility] [address] [place], [address] MCV (RBC) [Entitic vol] 87.6 fL Normal 81-99 [facility] Comment on above: Performed By: #### L 503.6005, L100.0100, L501.6900, L500.3400, L501.5200, L501.2450, L500.2500, L700.6800 ####[facility] [address] [place], [address] Monocytes/100 WBC (Bld) 2.8 % Normal 0-10 [facility] Comment on above: Performed By: #### L 503.6005, L100.0100, L501.6900, L500.3400, L501.5200, L501.2450, L500.2500, L700.6800 ####[facility] [address] [place], [address] Neutrophils/100 WBC (Bld) 88.9 % High 47-70 [facility] Comment on above: Performed By: #### L 503.6005, L100.0100, L501.6900, L500.3400, L501.5200, L501.2450, L500.2500, L700.6800 ####[facility] [address] [place], [address] Nucleated RBC (Bld) [#/Vol] 0 10*3/uL Normal 0-5 [facility] Comment on above: Performed By: #### L 503.6005, L100.0100, L501.6900, L500.3400, L501.5200, L501.2450, L500.2500, L700.6800 ####[facility] [address] [place], [address] Platelet mean volume (Bld) [Entitic vol] 13.0 fL High 6.2-12.0 [facility] Comment on above: Performed By: #### L 503.6005, L100.0100, L501.6900, L500.3400, L501.5200, L501.2450, L500.2500, L700.6800 ####[facility] [address] [place], [address] Platelets (Bld) [#/Vol] 169 10*3/uL Normal 150-450 [facility] Comment on above: Performed By: #### L 503.6005, L100.0100, L501.6900, L500.3400, L501.5200, L501.2450, L500.2500, L700.6800 ####[facility] [address] [place], [address] RBC (Bld) [#/Vol] 4.37 10*6/uL Normal 4.2-5.4 [facility] Comment on above: Performed By: #### L 503.6005, L100.0100, L501.6900, L500.3400, L501.5200, L501.2450, L500.2500, L700.6800 ####[facility] [address] [place], [address] RDW SD 39.6 fl Normal 35.1-43.9 [facility] Comment on above: Performed By: #### L 503.6005, L100.0100, L501.6900, L500.3400, L501.5200, L501.2450, L500.2500, L700.6800 ####[facility] [address] [place], [address] WBC (Bld) [#/Vol] 13.4 10*3/uL High 4.4-11.0 [facility] Comment on above: Performed By: #### L 503.6005, L100.0100, L501.6900, L500.3400, L501.5200, L501.2450, L500.2500, L700.6800 ####[facility] [address] [place], [address] Emergency Department Summary on 08-02-2024 Emergency Department Summary Normal [facility] H AND P Exam - Hospitaliston 08-02-2024 H&P Exam - Hospitalist Normal [facility] Hemoglobin A1con 08-02-2024 HbA1c (Bld) [Mass fraction] 7.9 % High 3.8-5.6 [facility] Comment on above: Result Comment: Norm al < 5.7 % Prediabetic 5.7 - 6.4 % Diabetic >or= 6.5 % Please note range changes. Performed By: #### L 500.2500, L501.9985 ####[facility] [address] [place], [address] Kidney and Bladderon 024 Kidney and Bladder Normal [facility] Lactic Acidon 08-02-2024 Lactate [Moles/Vol] 1.4 mmol/L Normal 0.4-1.9 [facility] Comment on above: Performed By: #### L 503.6005 ####[facility] [address] [place], [address] Lactate [Moles/Vol] 0.9 mmol/L Normal 0.4-1.9 [facility] Comment on above: Order Comment: Y Performed By: #### L 503.6005 ####[facility] [address] [place], [address] Lactate [Moles/Vol] 2.2 mmol/L Invalid Interpretation Code 0.4-1.9 [facility] Comment on above: Order Comment: Y Result Comment: Crit ical Result(s) Called at: 01:06:13 08/02/2024 by:Jhoana Martínez lforrestResults read back by same. Performed By: #### L 503.6005, L100.0100, L501.6900, L500.3400, L501.5200, L501.2450, L500.2500, L700.6800 ####[facility] [address] [place], [address] Lipaseon 08-02-2024 Lipase [Catalytic activity/Vol] U/L Low 13-75 [facility] Comment on above: Result Comment: Sulma schmitz note:LIPASE revised reference range effective 22.New Lipase methodology. Expected to produce lower valuesthan the previous assay method.NEW Reference Range: 13 - 75 U/L Performed By: #### L 503.6005, L100.0100, L501.6900, L500.3400, L501.5200, L501.2450, L500.2500, L700.6800 ####[facility] [address] [place], [place], [phone] Liver Profileon 08-02-2024 Albumin [Mass/Vol] 4.1 g/dL Normal 3.2-5.0 [facility] Comment on above: Performed By: #### L 503.6005, L100.0100, L501.6900, L500.3400, L501.5200, L501.2450, L500.2500, L700.6800 ####[facility] [address] [place], [place], [phone] ALK P 78 U/L Normal 45-117 [facility] Comment on above: Performed By: #### L 503.6005, L100.0100, L501.6900, L500.3400, L501.5200, L501.2450, L500.2500, L700.6800 ####[facility] [address] [place], [address] ALT [Catalytic activity/Vol] 15 U/L Normal 13-56 [facility] Comment on above: Performed By: #### L 503.6005, L100.0100, L501.6900, L500.3400, L501.5200, L501.2450, L500.2500, L700.6800 ####[facility] [address] [place], [address] AST [Catalytic activity/Vol] 13 U/L Low 15-37 [facility] Comment on above: Performed By: #### L 503.6005, L100.0100, L501.6900, L500.3400, L501.5200, L501.2450, L500.2500, L700.6800 ####[facility] [address] [place], [address] Bilirubin [Mass/Vol] 1.20 mg/dL High 0.20-1.00 [facility] Comment on above: Result Comment: For patients on eltrombopag therapy, use of Dimension [place] TBIL is not recommended. Performed By: #### L 503.6005, L100.0100, L501.6900, L500.3400, L501.5200, L501.2450, L500.2500, L700.6800 ####[facility] [id number] [place], [address] Bilirubin.direct [Mass/Vol] 0.38 mg/dL High 0.00-0.30 [facility] Comment on above: Performed By: #### L 503.6005, L100.0100, L501.6900, L500.3400, L501.5200, L501.2450, L500.2500, L700.6800 ####[facility] [id number] [place], [address] Globulin (S) [Mass/Vol] 3.3 g/dL Normal 2.2-4.2 [facility] Comment on above: Performed By: #### L 503.6005, L100.0100, L501.6900, L500.3400, L501.5200, L501.2450, L500.2500, L700.6800 ####[facility] [address] [place], [address] T PROT 7.4 g/dL Normal 6.4-8.2 [facility] Comment on above: Performed By: #### L 503.6005, L100.0100, L501.6900, L500.3400, L501.5200, L501.2450, L500.2500, L700.6800 ####[facility] [address] [place], [address] Magnesiumon 08-02-2024 Magnesium [Mass/Vol] 2.5 mg/dL Normal 1.6-2.6 [facility] Comment on above: Performed By: #### L 501.5200, L501.2300 ####[facility] [address] [place], [address] Magnesium [Mass/Vol] 1.5 mg/dL Low 1.6-2.6 [facility] Comment on above: Performed By: #### L 503.6005, L100.0100, L501.6900, L500.3400, L501.5200, L501.2450, L500.2500, L700.6800 ####[facility] [address] [place], [address] Phosphoruson 08-02-2024 Phosphate [Mass/Vol] 2.2 mg/dL Low 2.5-4.9 [facility] Comment on above: Performed By: #### L 501.5200, L501.2300 ####[facility] [address] [place], [address] ,Serum,hCG Quali.on 08-02-2024 HCG, SERUM QUAL Negative Normal [facility] Comment on above: Performed By: #### L 503.6005, L100.0100, L501.6900, L500.3400, L501.5200, L501.2450, L500.2500, L700.6800 ####[facility] [address] [place], [address] Urinalysis, Completeon 08-02 BACTERIA 1+ /hpf Normal None Seen [facility] Comment on above: Order Comment: CLEAN CATCH Performed By: #### L 400.0001 ####[facility] [address] [place], [address] EPI,SQUAMOUS 0-5 SEEN Normal 5-10 [facility] Comment on above: Order Comment: CLEAN CATCH Performed By: #### L 400.0001 ####[facility] [address] [place], [address] WBC 0-5 SEEN Normal 0-5 [facility] Comment on above: Order Comment: CLEAN CATCH Performed By: #### L 400.0001 ####[facility] [address] [place], [address] Mucus Ql (Urine sed) 0 SEEN Normal [facility] Comment on above: Order Comment: CLEAN CATCH Performed By: #### L 400.0001 ####[facility] [address] [place], [address] RBC 0 SEEN Normal 0-5 [facility] Comment on above: Order Comment: CLEAN CATCH Performed By: #### L 400.0001 ####[facility] [address] [place], [address] Urine Drug Screen (VISTA)on 08-02-2024 AMPHETAMINES Negative Normal <1000 ng/mL [facility] Comment on above: Performed By: #### L 505.5000 ####[facility] [address] [place], [address] BARBITIURATES Negative Normal < 200 ng/mL [facility] Comment on above: Performed By: #### L 505.5000 ####[facility] [address] [place] [id number] BENZODIAZIPINE Negative Normal < 200 ng/mL [facility] Comment on above: Performed By: #### L 505.5000 ####[facility] [address] [place], [address] COCAINE Negative Normal < 300 ng/mL [facility] Comment on above: Performed By: #### L 505.5000 ####[facility] [address] [place] [address] ECSTACY Negative Normal < 500 ng/mL [facility] Comment on above: Performed By: #### L 505.5000 ####[facility] [address] [place] [address] METHADONE Negative Normal < 300 ng/mL [facility] Comment on above: Performed By: #### L 505.5000 ####[facility] [address] [place] [address] OPIATES Negative Normal < 300 ng/mL [facility] Comment on above: Performed By: #### L 505.5000 ####[facility] [address] [place] [address] PCP Negative Normal < 25 ng/mL [facility] Comment on above: Performed By: #### L 505.5000 ####[facility] [address] [place] [address] THC Positive Abnormal < 50 ng/mL [facility] Comment on above: Performed By: #### L 505.5000 ####[facility] [address] [place] [address] VISTA UDS PH 5 Normal [facility] Comment on above: Performed By: #### L 505.5000 ####[facility] [address] [place], [address] Venous Blood Gason 4 Blood Gas Type ISABELLE Normal [facility] Comment on above: Performed By: #### L 9000.0810 ####[facility] [address] [place], [address] CO2 [Moles/Vol] 17 mmol/L Low 23-33 [facility] Comment on above: Performed By: #### L 9000.0810 ####[facility] [address] [place], [address] HCO3 (Bld) [Moles/Vol] 16 mmol/L Low 22-26 [facility] Comment on above: Performed By: #### L 0.0810 ####[facility] [address] [place], [address] O2 Delivery Dev Room Air [facility] Comment on above: Performed By: #### L 9000.0810 ####[facility] [address] [place], [address] SITE Not entered [facility] Comment on above: Performed By: #### L 9000.0810 ####[facility] [address] [place], [address] VBG BE -9 mmol/L Low -1.0-3.5 [facility] Comment on above: Performed By: #### L 9000.0810 ####[facility] [address] [place], [address] VBG pCO2 28.0 mmHg Low 41-51 [facility] Comment on above: Performed By: #### L 9000.0810 ####[facility] [address] [place], [address] VBG pH 7.38 Normal 7.32-7.42 [facility] Comment on above: Performed By: #### L 9000.0810 ####[facility] [address] [place], [address] VBG PO2 46 mmHg High 25-40 [facility] Comment on above: Performed By: #### L 9000.0810 ####[facility] [address] [place], [address] VBG SO2 82 High 50-70 [facility] Comment on above: Performed By: #### L 9000.0810 ####[facility] [address] [place], [address] Chest PA and Lateralon 08-01 Chest PA and Lateral Normal [facility] Emergency Department Summary on 08-01-2024 Emergency Department Summary Normal [facility] CNNURSEon 07-23-2024 CNNURSE Nurse Visit (ENDIMT) KATHLEEN VILLA ([id number]) 1995 F T Date Time Provider Department 07/23/24 9:00 AM VAMSI CARSON During your visit today, we recorded the following information about you: Vamsi Carson RN 07/23/2024 9:04 AM Signed DIABETES CARE AND EDUCATION VISIT Location: [place] Type of visit: In person individual PATIENT'S [...] TIME: 8:47 AM Referring Provider: KVNG LEWIS [[id number]] Allergies As of Date: 07/23/2024 Noted Allergy [...] Date Reviewed: 07/19/2024 Reviewed by: Jessica Guerrero APRN.SHORE HAND DREDGE OR BARGE - Fully Assessed Visit Diagnoses:Type 1 diabetes mellitus with hyperglycemia, with long-term current use of insulin (HCC) [E10.65] Insulin pump status [Z96.41] Order(s):CONSULT TO DIABETES EDUCATION DSME [[id number]] Order #: [id number]: 2 Prescriptions as of 07/23/2024 - Acetone, [...] Units subcutaneously every 24 hours. - Insulin Vidalia, Disposable, (PEN NEEDLE) 32 gauge x 5/32 [...] (post-traumatic stress disorder) [F43.10] 12/25/2012 DVT prophylaxis [QZR8595] 12/25/2012 09/04/2013 DISPOSITION AND FOLLOW-UP [V999.01] 12/25/2012 09/04/2013 HTN (hypertension) [I10] Hypertension in , antepartum [O16.9] 09/19/2013 01/08/2014 GBS (group B Streptococcus mesa (more content not included)... Normal [facility] Dipak 07-19-2024 GIOVANA Telephone (ENDOIN) KATHLEEN VILLA ([id number]) 1995 F CHT Date Time Provider Department 07/19/24 JESSICA GUERRERO During your visit today, we recorded the following information about you: Lisa Aguilar LPN 07/19/2024 3:45 PM Signed Jessica Guerrero APRN.FRIEDA Ashby She was able to get upgraded pump recently. I am sending her to [employer] and [employer] to start. She will need new supplies from [facility] including Guardian 4 CGM and supplies for Medtr[employer] 780 G. Jessica Guerrero APRN.SHORE HAND DREDGE OR BARGE Lisa Aguilar LPN 07/24/2024 2:00 PM Signed [...] Date Reviewed: 07/19/2024 Reviewed by: Jessica Guerrero APRN.SHORE HAND DREDGE OR BARGE - Fully Assessed Prescriptions as of 07/30/2024 [...] Units subcutaneously every 24 hours. - Insulin Vidalia, Disposable, (PEN NEEDLE) 32 gauge x 5/32 [...] (post-traumatic stress disorder) [F43.10] 12/25/2012 DVT prophylaxis [IHB0190] 12/25/2012 09/04/2013 DISPOSITION AND FOLLOW-UP [V999.01] 12/25/2012 09/04/2013 HTN (hypertension) [I10] Hypertension in , antepartum [O16.9] 09/19/2013 01/08/2014 GBS (group B Streptococcus carrier), +RV cultur*11/11/2013 04/16/2014 [Z34.90] 11/22/2013 04/16/2014 Diabetes mellitus in (HCC) [O24.919] 12/25/2013 04/16/2014 Diabetic ketoacidosis without coma associated w*01/08/2014 02/04/2023 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] 01/08/2014 DVT prophylaxis [TJO5505] 02/25/2014 04/16/2014 care and examination [Z39.2] 02/25/2014 04/16/2014 Near syncope [R55] 06/17/2014 Dyspnea [R06.00] 11/04/2014 Pre-op testing [Z01.818] 11/28/2014 Atelectasis [J98.11] 12/10/2014 Fluid overload [E87.70] 12/10/2014 12/15/2014 Tachycardia, unspecified [R00.0] 12/10/2014 12/12/2014 Post-operative pain [G89.18] 12/10/2014 Anxiety [F41.9] 12/10/2014 12/13/2014 Pre-existing type 1 diabetes mellitus in pregna*08/05/2015 10/03/2018 Hereditary disease in family possibly affecting*10/07/2015 Diabetes (HCC) [E11.9 (more content not included)... Normal [facility] C. trachomatis+N. gonorrhoea e DNA DANIEL+probe Ql (Unsp spec)on 07-10-2024 C. trachomatis rRNA DANIEL+probe Ql (Unsp spec) Negative Normal Negative for Chlamydia trachomatis by amplificaton [facility] Comment on above: Order Comment: Speci men Type: SWABOrdering Facility: [facility] Address: [address] [place] [address] Performed By: #### T RVAMP, 85669-1 ####[facility] LABCLIA [id number] [place] [address] [place] N. 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 As applicable, any other physician, advance practice provider, medical student, or other health professional student that will be observing or involved in the sensitive examination for educational or training purposes was discussed with the Patient or Authorized Machine Tool Dresser. The Patient or Authorized Machine Tool Dresser has agreed to proceed with the sensitive [...] external genitalia normal, normal Bartholin's glands, urethra, Norton's glands, no vulvar lesions, no cervical lesions, good vaginal support, physiologic discharge present, normal appearing perineal body and perianal region BIMANUAL: uterus normal size, shape and consistency, no adnexal masses, and non-tender ASSESSMENT/PLAN: 1) Health maintenance:Bisexual Pap done with reflex H (more content not included)... Normal [facility] HCV RNA DANIEL+probe Qnon 07-10 HCV RNA DANIEL+probe Ql Not detected Normal Not detected [facility] Comment on above: Order Comment: Speci men Type: BLOOD SPECIMENOrdering Facility: [facility] Address: [address] [place] [address] Performed By: #### 1 1011-4 ####[facility] LABIA [id number] [place] [address] [place] HIGH RISK HUMAN PAPILLOMA DERECK (HPV), PCR FOR DETECTION AND GENOTYPINGon 07-10-2024 HPV 16 Ag Ql (Unsp spec) Not detected Normal Not detected [facility] Comment on above: Order Comment: Speci men Type: FLUID SPECIMENOrdering Facility: [facility] Address: [address] [place] [address] Performed By: #### H PVHRT ####[facility] LABIA [id number] [place] [address] [place] HPV 18 Ag Ql (Unsp spec) Not detected Normal Not detected [facility] Comment on above: Order Comment: Speci men Type: FLUID SPECIMENOrdering Facility: [facility] Address: [address] [place] [address] Performed By: #### H PVHRT ####[facility] LABIA [id number] [place] [address] [place] HPV 31+33+35+39+45+51+52+5 6+58+59+66+68 DNA DANIEL+probe Ql (Cvx) Not detected Normal Not detected [facility] Comment on above: Order Comment: Speci men Type: FLUID SPECIMENOrdering Facility: [facility] Address: [address] [place] [address] Result Comment: High Risk HPV Other Type includes HPV types 31, 33, 35, 39, 45, 51, 52, 56, 58, 59, 66 and 68. Performed By: #### H PVHRT ####[facility] LABCLIA [id number] [place] [address] [place] HIV 1+2 Ab IA Qlon 4 HIV 1 and 2 Ab IA.rapid Nom (S/P/Bld) Normal [facility] Comment on above: Order Comment: Speci men Type: BLOOD SPECIMENOrdering Facility: [facility] Address: [address] [place] [address] Result Comment: Test not indicated. Performed By: #### 3 1201-7, 60041-1 ####[facility] LABCLIA [id number] [place] [address] [place] HIV 1+2 Ab+HIV1 p24 Ag IA Ql Non-Reactive Normal Nonreactive [facility] Comment on above: Order Comment: Speci men Type: BLOOD SPECIMENOrdering Facility: [facility] Address: [address] [place] [address] Performed By: #### 3 1201-7, 38591-5 ####[facility] LABCLIA [id number] [place] [address] [place] HIV immunoassay testing algorithm interpretation (S/P/Bld) [Interp] Normal [facility] Comment on above: Order Comment: Speci men Type: BLOOD SPECIMENOrdering Facility: [facility] Address: [address] [place] [address] Result Comment: No e vidence of HIV-1 or HIV-2 infection. Should recent infection be suspected, repeat testing may be considered 2-3 weeks after this draw. [place] Rev. Code 3701.243(E): This information has been [...] or diagnoses. Performed By: #### 3 1201-7, 70903-4 ####[facility] LABCLIA [id number] [address] [address] [place] PAP TESTon 07-10-2024 ADEQUACY Normal [facility] Comment on above: Order Comment: Speci men Type: FLUID SPECIMENOrdering Facility: [facility] Address: [address] [place] [address] Result Comment: Sati sfactory for interpretation. Limited cellularity. Performed By: #### L [id number] ####[facility] LABCLIA [id number] [place] [address] [place] CASE REPORT Normal [facility] Comment on above: Order Comment: Speci men Type: FLUID SPECIMENOrdering Facility: [facility] Address: [address] [place] [address] Result Comment: Gyne cologic Cytology Report Case: [id number] Authorizing Provider: Jason Paredes MD Collected: 07/10/2024 12:13 PM Ordering Location: OB/Gynecology Received: 07/10/2024 03:39 PM First Screen: Aramouni, Heather, CT, ASCP Specimen: Pap Test, ThinPrep, Cervix Performed By: #### L [id number] ####[facility] LABCLIA [id number] [place] [address] [place] CLINICAL HISTORY, CYTOLOGY, RAIL SIGNAL WORKER Routine Exam Normal [facility] Comment on above: Order Comment: Speci men Type: FLUID SPECIMENOrdering Facility: [facility] Address: [address] [place] [address] Performed By: #### L [id number] ####[facility] LABCLIA [id number] [place] [address] [place] FINAL PERFORMING LAB Normal [facility] Comment on above: Order Comment: Speci men Type: FLUID SPECIMENOrdering Facility: [facility] Address: [address] [place] [address] Result Comment: Tech nical component, digital media director screening performed at [facility], [address] [place] [id number] CLIA# [id number] Diagnostic interpretation performed at [facility], [address] [place], [place] [id number] CLIA# [id number] Medical Secretary: Brennen Holloway M.D. Performed By: #### L [id number] ####[facility] LABCLIA [id number] [place] [address] [place] INTERPRETATION, CYTOLOGY, RAIL SIGNAL WORKER Normal [facility] Comment on above: Order Comment: Speci men Type: FLUID SPECIMENOrdering Facility: [facility] Address: [address] [place] [address] Result Comment: Nega tive for intraepithelial lesion or malignancy. Performed By: #### L [id number] ####[facility] LABCLIA [id number] [place] [address] [place] [facility] 06/04/2024 Normal [facility] Comment on above: Order Comment: Speci men Type: FLUID SPECIMENOrdering Facility: [facility] Address: [address] [place] [address] Performed By: #### L [id number] ####[facility] LABCLIA [id number] [place] [address] [place] PAP DISCLAIMER COMMENT The Pap Smear is a screening test for cervical cancer. False negative results occur with all screening tests, emphasizing the need for rescreening at recommended intervals, and clinical correlation. Normal [facility] Comment on above: Order Comment: Speci men Type: FLUID SPECIMENOrdering Facility: [facility] Address: [address] [place] [address] Performed By: #### L [id number] ####[facility] LABCLIA [id number] [place] [id number] [place] PAP VOICE WRITING REPORTER COMMENT This specimen has be en analyzed by the [employer] Imaging System, an automated imaging and review system, which assists the laboratory in evaluating cells on ThinPrep Pap tests. Following automated imaging, selected cazares from every slide are reviewed by a digital media director. Normal [facility] Comment on above: Order Comment: Speci men Type: FLUID SPECIMENOrdering Facility: [facility] Address: [address] [place] [address] Performed By: #### L [id number] ####[facility] [id number] [place] [address] [place] Reagin and Treponema pallidu m IgG and IgM [Interp]on 07-10-2024 T. pallidum IgG+IgM IA Ql (S) Non-Reactive Normal Nonreactive [facility] Comment on above: Order Comment: Speci men Type: BLOOD SPECIMENOrdering Facility: [facility] Address: [address] [place] [address] Performed By: #### 3 1201-7, 05431-1 ####[facility] [id number] [place] [address] [place] Reagin+T pallidum IgG+IgM Se rPl-Impon 07-10-2024 Reagin and Treponema pallidum IgG and IgM [Interp] Cannot exclude recent Treponemal infection if specimen collected within 7-10 days after appearance of suspect lesions or 2-3 weeks after an exposure. Clinical correlation is required. Normal [facility] Comment on above: Order Comment: Speci men Type: BLOOD SPECIMENOrdering Facility: [facility] Address: [address] [place] [address] Performed By: #### 3 1201-7, 44183-1 ####[facility] [id number] [place] [address] [place] TRICHOMONAS VAGINALIS NAATon 07-10-2024 T. vaginalis DNA DANIEL+probe Ql (Unsp spec) Negative Normal Negative for Trichomonas vaginalis by amplification [facility] Comment on above: Order Comment: Speci men Type: SWABOrdering Facility: [facility] Address: [address] [place] [address] Performed By: #### T RVAMP, 65096-2 ####[facility] [id number] [place] [address] [place] TSH SerPl-aCncon 07-10-2024 TSH Qn 1.140 m[IU]/L Normal 0.270-4.200 [facility] Comment on above: Order Comment: Speci men Type: BLOOD SPECIMENOrdering Facility: [facility] Address: [address] [place] [address] Result Comment: If t he patient is , TSH reference range varies by gestational period: First Trimester (weeks 9-12): 0.180-2.990 mIU/L Second Trimester: 0.110-3.980 mIU/L Third Trimester: 0.480-4.710 mIU/L Kelvin Swain et al. A Practical Approach for the Verifications and Determination of Site- and Trimester-Specific Reference Intervals for Thyroid Function tests in . Thyroid, 2019:29:3:412-420. Dangelo Raya, et al. 2017 Guidelines of the [place] Thy[employer] for the Diagnosis and Management of Thyroid Disease during and the . Thyroid, 2017:27:3:315-389. Performed By: #### 3 016-3 ####[facility] [id number] [place] [address] [place] Dipak 06-24-2024 CNPN Telephone (INTMIN) KATHLEEN VILLA ([id number]) 1995 F CHT Date Time Provider Department 06/24/24 JESSICA GUERRERO INTMIN During your visit today, we recorded the following information about you: Zelda Zepdea 06/24/2024 3:54 PM Signed Patient needs a [...] Insulin Lispro. [facility]ed [facility] provider in office Please advise Jessica Guerrero APRN.FRIEDA 06/25/2024 1:58 PM Signed I recommend she sees certified breastfeeding educator to review pump options- I am [...] to patient via phone. Patient verbalizes understanding. [employer] message sent for patients reference as requested. [...] every 24 hours.Disp: 38.7 mLRfl: 1 Insulin Vidalia, Disposable, (PEN NEEDLE) 32 gauge x 5/32Inject [...] Units subcutaneously every 24 hours. - Insulin Vidalia, Disposable, (PEN NEEDLE) 32 gauge x 5/32 [...] TEST STRIPS) (more content not included)... [facility] FRIEDAN Telephone (QAMAR) KATHLEEN VILLA ([id number]) 1995 F T Date Time Provider Department 06/17/24 KVNG LEWIS During your visit today, we recorded the following information about you: Nichole Quinteros 06/17/2024 3:16 PM Signed Patient has been identified by name and date of : Yes Type of form: 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 Normal [facility] Comment on above: Performed By: #### M 200.1000 ####[facility] [address] [place], [place], [id number] Basic Metabolic Profile (BMP )on 06-11-2024 BUN/CRE 9.8 RATIO Low 06-16 [facility] Comment on above: Performed By: #### L 500.2500 ####[facility] [address] [place], [address] CA,Total 8.7 mg/dL Normal 8.5-10.1 [facility] Comment on above: Performed By: #### L 500.2500 ####[facility] [address] [place], [address] Chloride [Moles/Vol] 107 mmol/L Normal 98-107 [facility] Comment on above: Performed By: #### L 500.2500 ####[facility] [address] [place], [address] CO2 [Moles/Vol] 27.0 mmol/L Normal 21.0-32.0 [facility] Comment on above: Performed By: #### L 500.2500 ####[facility] [address] [place], [address] Creatinine [Mass/Vol] 0.82 mg/dL Normal 0.55-1.02 [facility] Comment on above: Result Comment: The validity of the calculated GFR GFRAA in patients over70 years has not been determined. Clinical correlation isessential. Performed By: #### L 500.2500 ####[facility] [address] [place], [address] ECRCL 105.79 ml/min Normal [facility] Comment on above: Performed By: #### L 500.2500 ####[facility] [address] [place], [address] EST GFR - AA 106 mL/min Normal >60 [facility] Comment on above: Result Comment: Afri can Panamanian GFR Calc Performed By: #### L 500.2500 ####[facility] [address] [place], [address] GAP 6 Normal 5-15 [facility] Comment on above: Performed By: #### L 500.2500 ####[facility] [address] [place] [address] GFR/1.73 sq M.predicted among non-blacks MDRD (S/P/Bld) [Vol rate/Area] 87 mL/min/{1.73_m2} Normal >60 [facility] Comment on above: Result Comment: Non- GFR Calc Performed By: #### L 500.2500 ####[facility] [address] [place], [address] Glucose [Mass/Vol] 194 mg/dL High 74-106 [facility] Comment on above: Result Comment: Fast ing Glucose result greater than or equal to 126 mg/dLsuggests DIABETES MELLITUS per A.D.A. criteria. Performed By: #### L 500.2500 ####[facility] [address] [place], [address] Potassium [Moles/Vol] 3.3 mmol/L Low 3.5-5.1 [facility] Comment on above: Performed By: #### L 500.2500 ####[facility] [address] [place], [address] Sodium [Moles/Vol] 140 mmol/L Normal 136-145 [facility] Comment on above: Performed By: #### L 500.2500 ####[facility] [address] [place], [address] Urea nitrogen [Mass/Vol] 8 mg/dL Normal - [facility] Comment on above: Performed By: #### L 500.2500 ####[facility] [address] [place], [address] Bedside Glucoseon 06-11-2024 FINGERSTICK GLU 116 mg/dL High 74-106 [facility] Comment on above: Result Comment: Dr Ej foreman FollowedMANAGEMENT OF PATIENT CARE PER NURSING PROTOCOL Performed By: #### L 501.080 ####[facility] [address] [place], [address] FINGERSTICK GLU 180 mg/dL High 74-106 [facility] Comment on above: Result Comment: EDGAR GEMENT OF PATIENT CARE PER NURSING PROTOCOL Performed By: #### L 501.080 ####[facility] [address] [place], [address] Discharge Instructionon 05-28 Discharge Instruction Normal [facility] Acetone Serumon 06-10-2024 ACETONE SERUM Negative Normal NEG [facility] Comment on above: Performed By: #### L 501.6900 ####[facility] [address] [place], [address] Basic Metabolic Profile (BMP )on 06-10-2024 BUN Normal - [facility] Comment on above: Result Comment: Mary ballard OM: Ordered Performed By: #### L 500.2500 ####[facility] [address] [place], [address] BUN/CRE Normal 06-16 [facility] Comment on above: Result Comment: Canc elled via OM: MD Ordered Performed By: #### L 500.2500 ####[facility] [address] [place], [address] CA,Total Normal 8.5-10.1 [facility] Comment on above: Result Comment: Canc elled via OM: MD Ordered Performed By: #### L 500.2500 ####[facility] [address] [place], [address] CL Normal 98-107 [facility] Comment on above: Result Comment: Canc elled via OM: MD Ordered Performed By: #### L 500.2500 ####[facility] [address] [place], [address] CO2 Normal 21.0-32.0 [facility] Comment on above: Result Comment: Canc elled via OM: MD Ordered Performed By: #### L 500.2500 ####[facility] [address] [place], [address] CREAT,SERUM Normal 0.55-1.02 [facility] Comment on above: Result Comment: Canc elled via OM: MD Ordered Performed By: #### L 500.2500 ####[facility] [address] [place], [address] EST GFR Normal >60 [facility] Comment on above: Result Comment: Canc elled via OM: MD Ordered Performed By: #### L 500.2500 ####[facility] [address] [place], [address] EST GFR - AA Normal >60 [facility] Comment on above: Result Comment: Canc elled via OM: MD Ordered Performed By: #### L 500.2500 ####[facility] [address] [place], [address] GAP Normal 5-15 [facility] Comment on above: Result Comment: Canc elled via OM: MD Ordered Performed By: #### L 500.2500 ####[facility] [address] [place], [address] GLU Normal 74-106 [facility] Comment on above: Result Comment: Canc elled via OM: MD Ordered Performed By: #### L 500.2500 ####[facility] [address] [place], [address] Potassium Normal 3.5-5.1 [facility] Comment on above: Result Comment: Canc elled via OM: MD Ordered Performed By: #### L 500.2500 ####[facility] [address] [place], [address] Basic Metabolic Profile (BMP) Normal 136-145 [facility] Comment on above: Result Comment: Canc elled via OM: MD Ordered Performed By: #### L 500.2500 ####[facility] [address] [place], [address] BUN/CRE 9.8 RATIO Low 10-20 [facility] Comment on above: Performed By: #### L 500.2500 ####[facility] [address] [place], [address] CA,Total 7.9 mg/dL Low 8.5-10.1 [facility] Comment on above: Performed By: #### L 500.2500 ####[facility] [address] [place], [address] Chloride [Moles/Vol] 107 mmol/L Normal 98-107 [facility] Comment on above: Performed By: #### L 500.2500 ####[facility] [address] [place], [address] CO2 [Moles/Vol] 25.0 mmol/L Normal 21.0-32.0 [facility] Comment on above: Performed By: #### L 500.2500 ####[facility] [address] [place], [address] Creatinine [Mass/Vol] 0.61 mg/dL Normal 0.55-1.02 [facility] Comment on above: Result Comment: The validity of the calculated GFR GFRAA in patients over70 years has not been determined. Clinical correlation isessential. Performed By: #### L 500.2500 ####[facility] [address] [place], [address] ECRCL 142.21 ml/min Normal [facility] Comment on above: Performed By: #### L 500.2500 ####[facility] [address] [place], [address] EST GFR - AA 148 mL/min Normal >60 [facility] Comment on above: Result Comment: Afri can Panamanian GFR Calc Performed By: #### L 500.2500 ####[facility] [address] [place], [address] GAP 10 Normal 5-15 [facility] Comment on above: Performed By: #### L 500.2500 ####[facility] [address] [place], [address] GFR/1.73 sq M.predicted among non-blacks MDRD (S/P/Bld) [Vol rate/Area] 123 mL/min/{1.73_m2} Normal >60 [facility] Comment on above: Result Comment: Non- GFR Calc Performed By: #### L 500.2500 ####[facility] [address] [place], [address] Glucose [Mass/Vol] 89 mg/dL Normal 74-106 [facility] Comment on above: Performed By: #### L 500.2500 ####[facility] [address] [place], [address] Potassium [Moles/Vol] 3.0 mmol/L Low 3.5-5.1 [facility] Comment on above: Performed By: #### L 500.2500 ####[facility] [address] [place], [address] Sodium [Moles/Vol] 141 mmol/L Normal 136-145 [facility] Comment on above: Performed By: #### L 500.2500 ####[facility] [address] [place], [address] Urea nitrogen [Mass/Vol] 6 mg/dL Low 7-18 [facility] Comment on above: Performed By: #### L 500.2500 ####[facility] [address] [place], [address] BUN/CRE 11.2 RATIO Normal 10-20 [facility] Comment on above: Performed By: #### L 501.5200, L500.2500, L100.0100, L501.2300 ####[facility] [address] [place], [address] CA,Total 8.0 mg/dL Low 8.5-10.1 [facility] Comment on above: Performed By: #### L 501.5200, L500.2500, L100.0100, L501.2300 ####[facility] [address] [place], [address] Chloride [Moles/Vol] 107 mmol/L Normal 98-107 [facility] Comment on above: Performed By: #### L 501.5200, L500.2500, L100.0100, L501.2300 ####[facility] [address] [place], [address] CO2 [Moles/Vol] 24.0 mmol/L Normal 21.0-32.0 [facility] Comment on above: Performed By: #### L 501.5200, L500.2500, L100.0100, L501.2300 ####[facility] [address] [place], [address] Creatinine [Mass/Vol] 0.63 mg/dL Normal 0.55-1.02 [facility] Comment on above: Result Comment: The validity of the calculated GFR GFRAA in patients over70 years has not been determined. Clinical correlation isessential. Performed By: #### L 501.5200, L500.2500, L100.0100, L501.2300 ####[facility] [address] [place], [address] ECRCL 137.70 ml/min Normal [facility] Comment on above: Performed By: #### L 501.5200, L500.2500, L100.0100, L501.2300 ####[facility] [address] [place], [address] EST GFR - AA 144 mL/min Normal >60 [facility] Comment on above: Result Comment: Afri can Panamanian GFR Calc Performed By: #### L 501.5200, L500.2500, L100.0100, L501.2300 ####[facility] [address] [place], [address] GAP 7 Normal 5-15 [facility] Comment on above: Performed By: #### L 501.5200, L500.2500, L100.0100, L501.2300 ####[facility] [address] [place], [address] GFR/1.73 sq M.predicted among non-blacks MDRD (S/P/Bld) [Vol rate/Area] 119 mL/min/{1.73_m2} Normal >60 [facility] Comment on above: Result Comment: Non- GFR Calc Performed By: #### L 501.5200, L500.2500, L100.0100, L501.2300 ####[facility] [address] [place], [address] Glucose [Mass/Vol] 127 mg/dL High 74-106 [facility] Comment on above: Result Comment: Fast ing Glucose result greater than or equal to 126 mg/dLsuggests DIABETES MELLITUS per A.D.A. criteria. Performed By: #### L 501.5200, L500.2500, L100.0100, L501.2300 ####[facility] [address] [place], [address] Potassium [Moles/Vol] 3.7 mmol/L Normal 3.5-5.1 [facility] Comment on above: Performed By: #### L 501.5200, L500.2500, L100.0100, L501.2300 ####[facility] [address] [place], [address] Sodium [Moles/Vol] 138 mmol/L Normal 136-145 [facility] Comment on above: Performed By: #### L 501.5200, L500.2500, L100.0100, L501.2300 ####[facility] [address] [place], [address] Urea nitrogen [Mass/Vol] 7 mg/dL Normal 7-18 [facility] Comment on above: Performed By: #### L 501.5200, L500.2500, L100.0100, L501.2300 ####[facility] [address] [place], [address] BUN/CRE 11.2 RATIO Normal 10-20 [facility] Comment on above: Performed By: #### L 500.2500 ####[facility] [address] [place], [address] CA,Total 7.9 mg/dL Low 8.5-10.1 [facility] Comment on above: Performed By: #### L 500.2500 ####[facility] [address] [place], [address] Chloride [Moles/Vol] 107 mmol/L Normal 98-107 [facility] Comment on above: Performed By: #### L 500.2500 ####[facility] [address] [place], [address] CO2 [Moles/Vol] 25.0 mmol/L Normal 21.0-32.0 [facility] Comment on above: Performed By: #### L 500.2500 ####[facility] [address] [place], [address] Creatinine [Mass/Vol] 0.81 mg/dL Normal 0.55-1.02 [facility] Comment on above: Result Comment: The validity of the calculated GFR GFRAA in patients over70 years has not been determined. Clinical correlation isessential. Performed By: #### L 500.2500 ####[facility] [address] [place], [address] ECRCL 107.10 ml/min Normal [facility] Comment on above: Performed By: #### L 500.2500 ####[facility] [address] [place], [address] EST GFR - AA 108 mL/min Normal >60 [facility] Comment on above: Result Comment: Afri can Panamanian GFR Calc Performed By: #### L 500.2500 ####[facility] [address] [place], [address] GAP 7 Normal 5-15 [facility] Comment on above: Performed By: #### L 500.2500 ####[facility] [address] [place], [address] GFR/1.73 sq M.predicted among non-blacks MDRD (S/P/Bld) [Vol rate/Area] 89 mL/min/{1.73_m2} Normal >60 [facility] Comment on above: Result Comment: Non- GFR Calc Performed By: #### L 500.2500 ####[facility] [address] [place], [address] Glucose [Mass/Vol] 185 mg/dL High 74-106 [facility] Comment on above: Result Comment: Fast ing Glucose result greater than or equal to 126 mg/dLsuggests DIABETES MELLITUS per A.D.A. criteria. Performed By: #### L 500.2500 ####[facility] [address] [place], [address] Potassium [Moles/Vol] 2.9 mmol/L Low 3.5-5.1 [facility] Comment on above: Performed By: #### L 500.2500 ####[facility] [address] [place], [address] Sodium [Moles/Vol] 140 mmol/L Normal 136-145 [facility] Comment on above: Performed By: #### L 500.2500 ####[facility] [address] [place], [address] Urea nitrogen [Mass/Vol] 9 mg/dL Normal 7-18 [facility] Comment on above: Performed By: #### L 500.2500 ####[facility] [address] [place], [address] Bedside Glucoseon 06-10-2024 FINGERSTICK GLU 122 mg/dL High 74-106 [facility] Comment on above: Result Comment: EDGAR GEMENT OF PATIENT CARE PER NURSING PROTOCOL Performed By: #### L 501.080 ####[facility] [address] [place], [address] FINGERSTICK GLU 120 mg/dL High 74-106 [facility] Comment on above: Result Comment: EDGAR GEMENT OF PATIENT CARE PER NURSING PROTOCOL Performed By: #### L 501.080 ####[facility] [address] [place], [address] FINGERSTICK GLU 158 mg/dL High 74-106 [facility] Comment on above: Result Comment: EDGAR GEMENT OF PATIENT CARE PER NURSING PROTOCOL Performed By: #### L 501.080 ####[facility] [address] [place], [address] FINGERSTICK GLU 93 mg/dL Normal 74-106 [facility] Comment on above: Result Comment: EDGAR GEMENT OF PATIENT CARE PER NURSING PROTOCOL Performed By: #### L 501.080 ####[facility] [address] [place], [address] FINGERSTICK GLU 85 mg/dL Normal 74-106 [facility] Comment on above: Result Comment: EDGAR GEMENT OF PATIENT CARE PER NURSING PROTOCOL Performed By: #### L 501.080 ####[facility] [address] [place], [address] FINGERSTICK GLU 67 mg/dL Low 74-106 [facility] Comment on above: Result Comment: EDGAR GEMENT OF PATIENT CARE PER NURSING PROTOCOL Performed By: #### L 501.080 ####[facility] [address] [place], [address] FINGERSTICK GLU 64 mg/dL Low 74-106 [facility] Comment on above: Result Comment: EDGAR GEMENT OF PATIENT CARE PER NURSING PROTOCOL Performed By: #### L 501.080 ####[facility] [address] [place], [address] FINGERSTICK GLU 74 mg/dL Normal 74-106 [facility] Comment on above: Result Comment: EDGAR GEMENT OF PATIENT CARE PER NURSING PROTOCOL Performed By: #### L 501.080 ####[facility] [address] [place], [address] FINGERSTICK GLU 124 mg/dL High 74-106 [facility] Comment on above: Result Comment: EDGAR GEMENT OF PATIENT CARE PER NURSING PROTOCOL Performed By: #### L 501.080 ####[facility] [address] [place], [address] FINGERSTICK GLU 146 mg/dL High 74-106 [facility] Comment on above: Result Comment: EDGAR GEMENT OF PATIENT CARE PER NURSING PROTOCOL Performed By: #### L 501.080 ####[facility] [address] [place], [address] FINGERSTICK GLU 122 mg/dL High [facility]106 [facility] Comment on above: Result Comment: EDGAR GEMENT OF PATIENT CARE PER NURSING PROTOCOL Performed By: #### L 501.080 ####[facility] [address] [place], [address] FINGERSTICK GLU 286 mg/dL High -106 [facility] Comment on above: Result Comment: EDGAR GEMENT OF PATIENT CARE PER NURSING PROTOCOL Performed By: #### L 501.080 ####[facility] [address] [place], [address] FINGERSTICK GLU 233 mg/dL High 74-106 [facility] Comment on above: Result Comment: EDGAR GEMENT OF PATIENT CARE PER NURSING PROTOCOL Performed By: #### L 501.080 ####[facility] [address] [place], [address] FINGERSTICK GLU 194 mg/dL High -106 [facility] Comment on above: Result Comment: EDGAR GEMENT OF PATIENT CARE PER NURSING PROTOCOL Performed By: #### L 501.080 ####[facility] [address] [place], [address] FINGERSTICK GLU 195 mg/dL High 74-106 [facility] Comment on above: Result Comment: EDGAR GEMENT OF PATIENT CARE PER NURSING PROTOCOL Performed By: #### L 501.080 ####[facility] [address] [place], [address] CBC W/Diff, Automatedon 10-1 Absolute Lymph 2.08 X10 3/uL Normal 0.83-4.51 [facility] Comment on above: Performed By: #### L 501.5200, L500.2500, L100.0100, L501.2300 ####[facility] [address] [place], [address] Absolute Neut 11.6 X10 3/uL High 2.0-7.7 [facility] Comment on above: Performed By: #### L 501.5200, L500.2500, L100.0100, L501.2300 ####[facility] [address] [place], [address] Basophils/100 WBC (Bld) 0.3 % Normal 0-1 [facility] Comment on above: Performed By: #### L 501.5200, L500.2500, L100.0100, L501.2300 ####[facility] [address] [place], [address] Eosinophils/100 WBC (Bld) 0.1 % Normal 0-5 [facility] Comment on above: Performed By: #### L 501.5200, L500.2500, L100.0100, L501.2300 ####[facility] [address] [place], [address] Erythrocyte distribution width (RBC) [Ratio] 12.6 % Normal 11.6-14.6 [facility] Comment on above: Performed By: #### L 501.5200, L500.2500, L100.0100, L501.2300 ####[facility] [address] [place], [address] Hematocrit (Bld) [Volume fraction] 36.7 % Low 37-47 [facility] Comment on above: Performed By: #### L 501.5200, L500.2500, L100.0100, L501.2300 ####[facility] [address] [place], [address] Hemoglobin (Bld) [Mass/Vol] 12.2 g/dL Normal 12.0-15.0 [facility] Comment on above: Performed By: #### L 501.5200, L500.2500, L100.0100, L501.2300 ####[facility] [address] [place], [address] IG% 1.100 High 0.0-0.9 [facility] Comment on above: Result Comment: IG% - Immature Granulocytes (promyelocytes, myelocytes andmetamyelocytes) > 1% indicates that a LEFT SHIFT is Present. Performed By: #### L 501.5200, L500.2500, L100.0100, L501.2300 ####[facility] [address] [place], [address] Lymphocytes/100 WBC (Bld) 14.1 % Low 19-41 [facility] Comment on above: Performed By: #### L 501.5200, L500.2500, L100.0100, L501.2300 ####[facility] [address] [place], [address] MCH (RBC) [Entitic mass] 29.5 pg Normal 27.0-32.0 [facility] Comment on above: Performed By: #### L 501.5200, L500.2500, L100.0100, L501.2300 ####[facility] [address] [place], [address] MCHC (RBC) [Mass/Vol] 33.2 g/dL Normal 32-36 [facility] Comment on above: Performed By: #### L 501.5200, L500.2500, L100.0100, L501.2300 ####[facility] [address] [place], [address] MCV (RBC) [Entitic vol] 88.9 fL Normal 81-99 [facility] Comment on above: Performed By: #### L 501.5200, L500.2500, L100.0100, L501.2300 ####[facility] [address] [place], [address] Monocytes/100 WBC (Bld) 5.9 % Normal 0-10 [facility] Comment on above: Performed By: #### L 501.5200, L500.2500, L100.0100, L501.2300 ####[facility] [address] [place], [address] Neutrophils/100 WBC (Bld) 78.5 % High 47-70 [facility] Comment on above: Performed By: #### L 501.5200, L500.2500, L100.0100, L501.2300 ####[facility] [address] [place], [address] Nucleated RBC (Bld) [#/Vol] 0 10*3/uL Normal 0-5 [facility] Comment on above: Performed By: #### L 501.5200, L500.2500, L100.0100, L501.2300 ####[facility] [address] [place], [address] Platelet mean volume (Bld) [Entitic vol] 11.8 fL Normal 6.2-12.0 [facility] Comment on above: Performed By: #### L 501.5200, L500.2500, L100.0100, L501.2300 ####[facility] [address] [place], [address] Platelets (Bld) [#/Vol] 187 10*3/uL Normal 150-450 [facility] Comment on above: Performed By: #### L 501.5200, L500.2500, L100.0100, L501.2300 ####[facility] [address] [place], [address] RBC (Bld) [#/Vol] 4.13 10*6/uL Low 4.2-5.4 [facility] Comment on above: Performed By: #### L 501.5200, L500.2500, L100.0100, L501.2300 ####[facility] [address] [place], [address] RDW SD 41.1 fl Normal 35.1-43.9 [facility] Comment on above: Performed By: #### L 501.5200, L500.2500, L100.0100, L501.2300 ####[facility] [address] [place], [address] WBC (Bld) [#/Vol] 14.8 10*3/uL High 4.4-11.0 [facility] Comment on above: Performed By: #### L 501.5200, L500.2500, L100.0100, L501.2300 ####[facility] [address] [place], [address] Magnesiumon 06-10-2024 Magnesium [Mass/Vol] 2.2 mg/dL Normal 1.6-2.6 [facility] Comment on above: Performed By: #### L 501.5200, L500.2500, L100.0100, L501.2300 ####[facility] [address] [place], [address] Phosphoruson 06-10-2024 Phosphate [Mass/Vol] 2.3 mg/dL Low 2.5-4.9 [facility] Comment on above: Performed By: #### L 501.2300 ####[facility] [address] [place], [address] Phosphate [Mass/Vol] 1.8 mg/dL Low 2.5-4.9 [facility] Comment on above: Performed By: #### L 501.5200, L500.2500, L100.0100, L501.2300 ####[facility] [address] [place], [address] Acetone Serumon 06-09-2024 ACETONE SERUM LARGE Abnormal NEG [facility] Comment on above: Performed By: #### L 501.6900 ####[facility] [address] [place], [address] Basic Metabolic Profile (BMP )on 06-09-2024 BUN/CRE 12.1 RATIO Normal 10-20 [facility] Comment on above: Performed By: #### L 500.2500 ####[facility] [address] [place], [address] CA,Total 8.0 mg/dL Low 8.5-10.1 [facility] Comment on above: Performed By: #### L 500.2500 ####[facility] [address] [place], [address] Chloride [Moles/Vol] 103 mmol/L Normal 98-107 [facility] Comment on above: Performed By: #### L 500.2500 ####[facility] [address] [place], [address] CO2 [Moles/Vol] 21.0 mmol/L Normal 21.0-32.0 [facility] Comment on above: Performed By: #### L 500.2500 ####[facility] [address] [place], [address] Creatinine [Mass/Vol] 0.74 mg/dL Normal 0.55-1.02 [facility] Comment on above: Result Comment: The validity of the calculated GFR GFRAA in patients over70 years has not been determined. Clinical correlation isessential. Performed By: #### L 500.2500 ####[facility] [address] [place], [address] ECRCL 117.23 ml/min Normal [facility] Comment on above: Performed By: #### L 500.2500 ####[facility] [address] [place], [address] EST GFR - AA 118 mL/min Normal >60 [facility] Comment on above: Result Comment: Afri can Panamanian GFR Calc Performed By: #### L 500.2500 ####[facility] [address] [place], [address] GAP 12 Normal 5-15 [facility] Comment on above: Performed By: #### L 500.2500 ####[facility] [address] [place], [address] GFR/1.73 sq M.predicted among non-blacks MDRD (S/P/Bld) [Vol rate/Area] 98 mL/min/{1.73_m2} Normal >60 [facility] Comment on above: Result Comment: Non- GFR Calc Performed By: #### L 500.2500 ####[facility] [address] [place], [address] Glucose [Mass/Vol] 351 mg/dL High 74-106 [facility] Comment on above: Result Comment: Gluc ose result greater than or equal to 200 mg/dLsuggests DIABETES MELLITUS per A.D.A. criteria. Performed By: #### L 500.2500 ####[facility] [address] [place], [address] Potassium [Moles/Vol] 3.4 mmol/L Low 3.5-5.1 [facility] Comment on above: Performed By: #### L 500.2500 ####[facility] [address] [place], [address] Sodium [Moles/Vol] 136 mmol/L Normal 136-145 [facility] Comment on above: Performed By: #### L 500.2500 ####[facility] [address] [place], [address] Urea nitrogen [Mass/Vol] 9 mg/dL Normal 7-18 [facility] Comment on above: Performed By: #### L 500.2500 ####[facility] [address] [place], [address] BUN Normal 7-18 [facility] Comment on above: Result Comment: Canc elled via OM: MD Ordered Performed By: #### L 500.2500 ####[facility] [address] [place], [address] Order Comment: Call MD with results STAT BUN/CRE Normal 10-20 [facility] Comment on above: Result Comment: Canc elled via OM: MD Ordered Performed By: #### L 500.2500 ####[facility] [address] [place], [address] Order Comment: Call MD with results STAT CA,Total Normal 8.5-10.1 [facility] Comment on above: Result Comment: Canc elled via OM: MD Ordered Performed By: #### L 500.2500 ####[facility] [address] [place], [address] Order Comment: Call MD with results STAT CL Normal 98-107 [facility] Comment on above: Result Comment: Canc elled via OM: MD Ordered Performed By: #### L 500.2500 ####[facility] [address] [place], [address] Order Comment: Call MD with results STAT CO2 Normal 21.0-32.0 [facility] Comment on above: Result Comment: Canc elled via OM: MD Ordered Performed By: #### L 500.2500 ####[facility] [address] [place], [address] Order Comment: Call MD with results STAT CREAT,SERUM Normal 0.55-1.02 [facility] Comment on above: Result Comment: Canc elled via OM: MD Ordered Performed By: #### L 500.2500 ####[facility] [address] [place], [address] Order Comment: Call MD with results STAT EST GFR Normal >60 [facility] Comment on above: Result Comment: Canc elled via OM: MD Ordered Performed By: #### L 500.2500 ####[facility] [address] [place], [address] Order Comment: Call MD with results STAT EST GFR - AA Normal >60 [facility] Comment on above: Result Comment: Canc elled via OM: MD Ordered Performed By: #### L 500.2500 ####[facility] [address] [place], [address] Order Comment: Call MD with results STAT GAP Normal 5-15 [facility] Comment on above: Result Comment: Canc elled via OM: MD Ordered Performed By: #### L 500.2500 ####[facility] [address] [place], [address] Order Comment: Call MD with results STAT GLU Normal 74-106 [facility] Comment on above: Result Comment: Canc elled via OM: MD Ordered Performed By: #### L 500.2500 ####[facility] [address] [place], [address] Order Comment: Call MD with results STAT Potassium Normal 3.5-5.1 [facility] Comment on above: Result Comment: Canc elled via OM: MD Ordered Performed By: #### L 500.2500 ####[facility] [address] [place], [address] Order Comment: Call MD with results STAT Basic Metabolic Profile (BMP) Normal 136-145 [facility] Comment on above: Result Comment: Canc elled via OM: MD Ordered Performed By: #### L 500.2500 ####[facility] [address] [place], [address] Order Comment: Call MD with results STAT BUN Normal 7-18 [facility] Comment on above: Order Comment: Call MD with results STAT Result Comment: NOT COLLECTED. Performed By: #### L 500.2500 ####[facility] [address] [place], [address] BUN/CRE Normal 10-20 [facility] Comment on above: Order Comment: Call MD with results STAT Result Comment: NOT COLLECTED. Performed By: #### L 500.2500 ####[facility] [address] [place], [address] CA,Total Normal 8.5-10.1 [facility] Comment on above: Order Comment: Call MD with results STAT Result Comment: NOT COLLECTED. Performed By: #### L 500.2500 ####[facility] [address] [place], [address] CL Normal 98-107 [facility] Comment on above: Order Comment: Call MD with results STAT Result Comment: NOT COLLECTED. Performed By: #### L 500.2500 ####[facility] [address] [place], [address] CO2 Normal 21.0-32.0 [facility] Comment on above: Order Comment: Call MD with results STAT Result Comment: NOT COLLECTED. Performed By: #### L 500.2500 ####[facility] [address] [place], [address] CREAT,SERUM Normal 0.55-1.02 [facility] Comment on above: Order Comment: Call MD with results STAT Result Comment: NOT COLLECTED. Performed By: #### L 500.2500 ####[facility] [address] [place], [address] EST GFR Normal >60 [facility] Comment on above: Order Comment: Call MD with results STAT Result Comment: NOT COLLECTED. Performed By: #### L 500.2500 ####[facility] [address] [place], [address] EST GFR - AA Normal >60 [facility] Comment on above: Order Comment: Call MD with results STAT Result Comment: NOT COLLECTED. Performed By: #### L 500.2500 ####[facility] [address] [place], [address] GAP Normal 5-15 [facility] Comment on above: Order Comment: Call MD with results STAT Result Comment: NOT COLLECTED. Performed By: #### L 500.2500 ####[facility] [address] [place], [address] GLU Normal 74-106 [facility] Comment on above: Order Comment: Call MD with results STAT Result Comment: NOT COLLECTED. Performed By: #### L 500.2500 ####[facility] [address] [place], [address] Potassium Normal 3.5-5.1 [facility] Comment on above: Order Comment: Call MD with results STAT Result Comment: NOT COLLECTED. Performed By: #### L 500.2500 ####[facility] [address] [place], [address] Basic Metabolic Profile (BMP) Normal 136-145 [facility] Comment on above: Order Comment: Call MD with results STAT Result Comment: NOT COLLECTED. Performed By: #### L 500.2500 ####[facility] [address] [place], [address] Bedside Glucoseon 06-09-2024 FINGERSTICK GLU 322 mg/dL High 74-106 [facility] Comment on above: Result Comment: EDGAR GEMENT OF PATIENT CARE PER NURSING PROTOCOL Performed By: #### L 501.080 ####[facility] [address] [place], [address] FINGERSTICK GLU 354 mg/dL High 74-106 [facility] Comment on above: Result Comment: EDGAR GEMENT OF PATIENT CARE PER NURSING PROTOCOL Performed By: #### L 501.080 ####[facility] [address] [place], [address] FINGERSTICK GLU 146 mg/dL High 74-106 [facility] Comment on above: Result Comment: EDGAR GEMENT OF PATIENT CARE PER NURSING PROTOCOL Performed By: #### L 501.080 ####[facility] [address] [place], [address] FINGERSTICK GLU 51 mg/dL Low 74-106 [facility] Comment on above: Result Comment: EDGAR GEMENT OF PATIENT CARE PER NURSING PROTOCOL Performed By: #### L 501.080 ####[facility] [address] [place], [address] FINGERSTICK GLU 72 mg/dL Low 74-106 [facility] Comment on above: Result Comment: EDGAR GEMENT OF PATIENT CARE PER NURSING PROTOCOL Performed By: #### L 501.080 ####[facility] [address] [place], [address] FINGERSTICK GLU 127 mg/dL High 74-106 [facility] Comment on above: Result Comment: EDGAR GEMENT OF PATIENT CARE PER NURSING PROTOCOL Performed By: #### L 501.080 ####[facility] [address] [place], [address] FINGERSTICK GLU 128 mg/dL High 74-106 [facility] Comment on above: Result Comment: EDGAR GEMENT OF PATIENT CARE PER NURSING PROTOCOL Performed By: #### L 501.080 ####[facility] [address] [place], [address] FINGERSTICK GLU 135 mg/dL High 74-106 [facility] Comment on above: Result Comment: EDGAR GEMENT OF PATIENT CARE PER NURSING PROTOCOL Performed By: #### L 501.080 ####[facility] [address] [place], [address] FINGERSTICK GLU 127 mg/dL High 74-106 [facility] Comment on above: Result Comment: EDGAR GEMENT OF PATIENT CARE PER NURSING PROTOCOL Performed By: #### L 501.080 ####[facility] [address] [place], [address] FINGERSTICK GLU 131 mg/dL High 74-106 [facility] Comment on above: Result Comment: EDGAR GEMENT OF PATIENT CARE PER NURSING PROTOCOL Performed By: #### L 501.080 ####[facility] [address] [place], [address] FINGERSTICK GLU 136 mg/dL High 74-106 [facility] Comment on above: Result Comment: EDGAR GEMENT OF PATIENT CARE PER NURSING PROTOCOL Performed By: #### L 501.080 ####[facility] [address] [place], [address] FINGERSTICK GLU 170 mg/dL High -106 [facility] Comment on above: Result Comment: EDGAR GEMENT OF PATIENT CARE PER NURSING PROTOCOL Performed By: #### L 501.080 ####[facility] [address] [place], [address] FINGERSTICK GLU 206 mg/dL High 74-106 [facility] Comment on above: Result Comment: EDGAR GEMENT OF PATIENT CARE PER NURSING PROTOCOL Performed By: #### L 501.080 ####[facility] [address] [place], [address] CBC W/Diff, Automatedon 10-1 -2023 Absolute Lymph 1.62 X10 3/uL Normal 0.83-4.51 [facility] Comment on above: Performed By: #### L 501.2300, L100.0100 ####[facility] [address] [place], [address] Absolute Neut 14.1 X10 3/uL High 2.0-7.7 [facility] Comment on above: Performed By: #### L 501.2300, L100.0100 ####[facility] [address] [place], [address] Basophils/100 WBC (Bld) 0.2 % Normal 0-1 [facility] Comment on above: Performed By: #### L 501.2300, L100.0100 ####[facility] [address] [place], [address] Eosinophils/100 WBC (Bld) 0.1 % Normal 0-5 [facility] Comment on above: Performed By: #### L 501.2300, L100.0100 ####[facility] [address] [place], [address] Erythrocyte distribution width (RBC) [Ratio] 12.9 % Normal 11.6-14.6 [facility] Comment on above: Performed By: #### L 501.2300, L100.0100 ####[facility] [address] [place], [address] Hematocrit (Bld) [Volume fraction] 34.0 % Low 37-47 [facility] Comment on above: Performed By: #### L 501.2300, L100.0100 ####[facility] [address] [place], [address] Hemoglobin (Bld) [Mass/Vol] 11.1 g/dL Low 12.0-15.0 [facility] Comment on above: Performed By: #### L 501.2300, L100.0100 ####[facility] [address] [place], [address] IG% 0.800 Normal 0.0-0.9 [facility] Comment on above: Result Comment: IG% - Immature Granulocytes (promyelocytes, myelocytes andmetamyelocytes) > 1% indicates that a LEFT SHIFT is Present. Performed By: #### L 501.2300, L100.0100 ####[facility] [address] [place], [address] Lymphocytes/100 WBC (Bld) 9.7 % Low 19-41 [facility] Comment on above: Performed By: #### L 501.2300, L100.0100 ####[facility] [address] [place], [address] MCH (RBC) [Entitic mass] 29.1 pg Normal 27.0-32.0 [facility] Comment on above: Performed By: #### L 501.2300, L100.0100 ####[facility] [address] [place], [address] MCHC (RBC) [Mass/Vol] 32.6 g/dL Normal 32-36 [facility] Comment on above: Performed By: #### L 501.2300, L100.0100 ####[facility] [address] [place], [address] MCV (RBC) [Entitic vol] 89.2 fL Normal 81-99 [facility] Comment on above: Performed By: #### L 501.2300, L100.0100 ####[facility] [address] [place], [address] Monocytes/100 WBC (Bld) 5.1 % Normal 0-10 [facility] Comment on above: Performed By: #### L 501.2300, L100.0100 ####[facility] [address] [place], [address] Neutrophils/100 WBC (Bld) 84.1 % High 47-70 [facility] Comment on above: Performed By: #### L 501.2300, L100.0100 ####[facility] [address] [place], [address] Nucleated RBC (Bld) [#/Vol] 0 10*3/uL Normal 0-5 [facility] Comment on above: Performed By: #### L 501.2300, L100.0100 ####[facility] [address] [place], [address] Platelet mean volume (Bld) [Entitic vol] 12.0 fL Normal 6.2-12.0 [facility] Comment on above: Performed By: #### L 501.2300, L100.0100 ####[facility] [address] [place], [address] Platelets (Bld) [#/Vol] 147 10*3/uL Low 150-450 [facility] Comment on above: Performed By: #### L 501.2300, L100.0100 ####[facility] [address] [place], [address] RBC (Bld) [#/Vol] 3.81 10*6/uL Low 4.2-5.4 [facility] Comment on above: Performed By: #### L 501.2300, L100.0100 ####[facility] [address] [place], [address] RDW SD 42.1 fl Normal 35.1-43.9 [facility] Comment on above: Performed By: #### L 501.2300, L100.0100 ####[facility] [address] [place], [address] WBC (Bld) [#/Vol] 16.7 10*3/uL High 4.4-11.0 [facility] Comment on above: Performed By: #### L 501.2300, L100.0100 ####[facility] [address] [place], [address] Comprehensive Metabolic Prof ilon 06-09-2024 Albumin [Mass/Vol] 3.0 g/dL Low 3.2-5.0 [facility] Comment on above: Order Comment: Call MD with results STAT Performed By: #### L 501.5200, L500.4050 ####[facility] [address] [place], [address] Albumin/Globulin [Mass ratio] 1.1 {ratio} Normal 0.9-2.4 [facility] Comment on above: Order Comment: Call MD with results STAT Performed By: #### L 501.5200, L500.4050 ####[facility] [address] [place], [address] ALK P 68 U/L Normal 45-117 [facility] Comment on above: Order Comment: Call MD with results STAT Performed By: #### L 501.5200, L500.4050 ####[facility] [address] [place], [address] ALT [Catalytic activity/Vol] 22 U/L Normal 13-56 [facility] Comment on above: Order Comment: Call MD with results STAT Performed By: #### L 501.5200, L500.4050 ####[facility] [address] [place], [address] AST [Catalytic activity/Vol] 12 U/L Low 15-37 [facility] Comment on above: Order Comment: Call MD with results STAT Performed By: #### L 501.5200, L500.4050 ####[facility] [address] [place], [address] Bilirubin [Mass/Vol] 0.80 mg/dL Normal 0.20-1.00 [facility] Comment on above: Order Comment: Call MD with results STAT Result Comment: For patients on eltrombopag therapy, use of Dimension [place] TBIL is not recommended. Performed By: #### L 501.5200, L500.4050 ####[facility] [address] [place], [address] BUN/CRE 16.7 RATIO Normal 10-20 [facility] Comment on above: Order Comment: Call MD with results STAT Performed By: #### L 501.5200, L500.4050 ####[facility] [address] [place], [address] CA,Total 7.7 mg/dL Low 8.5-10.1 [facility] Comment on above: Order Comment: Call MD with results STAT Performed By: #### L 501.5200, L500.4050 ####[facility] [address] [place], [address] Chloride [Moles/Vol] 111 mmol/L High 98-107 [facility] Comment on above: Order Comment: Call MD with results STAT Performed By: #### L 501.5200, L500.4050 ####[facility] [address] [place], [address] CO2 [Moles/Vol] 23.0 mmol/L Normal 21.0-32.0 [facility] Comment on above: Order Comment: Call MD with results STAT Performed By: #### L 501.5200, L500.4050 ####[facility] [address] [place], [address] Creatinine [Mass/Vol] 0.60 mg/dL Normal 0.55-1.02 [facility] Comment on above: Order Comment: Call MD with results STAT Result Comment: The validity of the calculated GFR GFRAA in patients over70 years has not been determined. Clinical correlation isessential. Performed By: #### L 501.5200, L500.4050 ####[facility] [address] [place], [address] ECRCL 144.58 ml/min Normal [facility] Comment on above: Order Comment: Call MD with results STAT Performed By: #### L 501.5200, L500.4050 ####[facility] [address] [place], [address] EST GFR - AA 151 mL/min Normal >60 [facility] Comment on above: Order Comment: Call MD with results STAT Result Comment: Afri can Panamanian GFR Calc Performed By: #### L 501.5200, L500.4050 ####[facility] [address] [place], [address] GAP 6 Normal 5-15 [facility] Comment on above: Order Comment: Call MD with results STAT Performed By: #### L 501.5200, L500.4050 ####[facility] [address] [place], [address] GFR/1.73 sq M.predicted among non-blacks MDRD (S/P/Bld) [Vol rate/Area] 125 mL/min/{1.73_m2} Normal >60 [facility] Comment on above: Order Comment: Call MD with results STAT Result Comment: Non- GFR Calc Performed By: #### L 501.5200, L500.4050 ####[facility] [address] [place], [address] Globulin (S) [Mass/Vol] 2.7 g/dL Normal 2.2-4.2 [facility] Comment on above: Order Comment: Call MD with results STAT Performed By: #### L 501.5200, L500.4050 ####[facility] [address] [place], [address] Glucose [Mass/Vol] 142 mg/dL High 74-106 [facility] Comment on above: Order Comment: Call MD with results STAT Result Comment: Fast ing Glucose result greater than or equal to 126 mg/dLsuggests DIABETES MELLITUS per A.D.A. criteria. Performed By: #### L 501.5200, L500.4050 ####[facility] [address] [place], [address] Potassium [Moles/Vol] 3.0 mmol/L Low 3.5-5.1 [facility] Comment on above: Order Comment: Call MD with results STAT Performed By: #### L 501.5200, L500.4050 ####[facility] [address] [place], [address] Sodium [Moles/Vol] 139 mmol/L Normal 136-145 [facility] Comment on above: Order Comment: Call MD with results STAT Performed By: #### L 501.5200, L500.4050 ####[facility] [address] [place], [address] T PROT 5.7 g/dL Low 6.4-8.2 [facility] Comment on above: Order Comment: Call MD with results STAT Performed By: #### L 501.5200, L500.4050 ####[facility] [address] [place], [address] Urea nitrogen [Mass/Vol] 10 mg/dL Normal 7-18 [facility] Comment on above: Order Comment: Call MD with results STAT Performed By: #### L 501.5200, L500.4050 ####[facility] [address] [place], [address] Magnesiumon 06-09-2024 Magnesium [Mass/Vol] 2.0 mg/dL Normal 1.6-2.6 [facility] Comment on above: Order Comment: Call MD with results STAT Performed By: #### L 501.5200, L500.4050 ####[facility] [address] [place], [address] Phosphoruson 06-09-2024 Phosphate [Mass/Vol] 1.2 mg/dL Low 2.5-4.9 [facility] Comment on above: Performed By: #### L 501.2300, L100.0100 ####[facility] [address] [place], [address] Acetone Serumon 06-08-2024 ACETONE SERUM SMALL Abnormal NEG [facility] Comment on above: Order Comment: Comme nts: If not done in the ED Performed By: #### L 501.6900 ####[facility] [facility] [address] [place], [address] Basic Metabolic Profile (BMP )on 06-08-2024 BUN Normal 7-18 [facility] Comment on above: Order Comment: Call MD with results STAT Result Comment: NOT COLLECTED. Performed By: #### L 500.2500 ####[facility] [address] [place], [address] BUN/CRE Normal 10-20 [facility] Comment on above: Order Comment: Call MD with results STAT Result Comment: NOT COLLECTED. Performed By: #### L 500.2500 ####[facility] [address] [place], [address] CA,Total Normal 8.5-10.1 [facility] Comment on above: Order Comment: Call MD with results STAT Result Comment: NOT COLLECTED. Performed By: #### L 500.2500 ####[facility] [address] [place], [address] CL Normal 98-107 [facility] Comment on above: Order Comment: Call MD with results STAT Result Comment: NOT COLLECTED. Performed By: #### L 500.2500 ####[facility] [address] [place], [address] CO2 Normal 21.0-32.0 [facility] Comment on above: Order Comment: Call MD with results STAT Result Comment: NOT COLLECTED. Performed By: #### L 500.2500 ####[facility] [address] [place], [address] CREAT,SERUM Normal 0.55-1.02 [facility] Comment on above: Order Comment: Call MD with results STAT Result Comment: NOT COLLECTED. Performed By: #### L 500.2500 ####[facility] [address] [place], [address] EST GFR Normal >60 [facility] Comment on above: Order Comment: Call MD with results STAT Result Comment: NOT COLLECTED. Performed By: #### L 500.2500 ####[facility] [address] [place], [address] EST GFR - AA Normal >60 [facility] Comment on above: Order Comment: Call MD with results STAT Result Comment: NOT COLLECTED. Performed By: #### L 500.2500 ####[facility] [address] [place], [address] GAP Normal 5-15 [facility] Comment on above: Order Comment: Call MD with results STAT Result Comment: NOT COLLECTED. Performed By: #### L 500.2500 ####[facility] [address] [place], [address] GLU Normal 74-106 [facility] Comment on above: Order Comment: Call MD with results STAT Result Comment: NOT COLLECTED. Performed By: #### L 500.2500 ####[facility] [address] [place], [address] Potassium Normal 3.5-5.1 [facility] Comment on above: Order Comment: Call MD with results STAT Result Comment: NOT COLLECTED. Performed By: #### L 500.2500 ####[facility] [address] [place], [address] Basic Metabolic Profile (BMP) Normal 136-145 [facility] Comment on above: Order Comment: Call MD with results STAT Result Comment: NOT COLLECTED. Performed By: #### L 500.2500 ####[facility] [address] [place], [address] BUN Normal 7-18 [facility] Comment on above: Order Comment: Call MD with results STAT Result Comment: NOT COLLECTED. Performed By: #### L 500.2500 ####[facility] [address] [place], [address] BUN/CRE Normal 10-20 [facility] Comment on above: Order Comment: Call MD with results STAT Result Comment: NOT COLLECTED. Performed By: #### L 500.2500 ####[facility] [address] [place], [address] CA,Total Normal 8.5-10.1 [facility] Comment on above: Order Comment: Call MD with results STAT Result Comment: NOT COLLECTED. Performed By: #### L 500.2500 ####[facility] [address] [place], [address] CL Normal 98-107 [facility] Comment on above: Order Comment: Call MD with results STAT Result Comment: NOT COLLECTED. Performed By: #### L 500.2500 ####[facility] [address] [place], [address] CO2 Normal 21.0-32.0 [facility] Comment on above: Order Comment: Call MD with results STAT Result Comment: NOT COLLECTED. Performed By: #### L 500.2500 ####[facility] [address] [place], [address] CREAT,SERUM Normal 0.55-1.02 [facility] Comment on above: Order Comment: Call MD with results STAT Result Comment: NOT COLLECTED. Performed By: #### L 500.2500 ####[facility] [address] [place], [address] EST GFR Normal >60 [facility] Comment on above: Order Comment: Call MD with results STAT Result Comment: NOT COLLECTED. Performed By: #### L 500.2500 ####[facility] [address] [place], [address] EST GFR - AA Normal >60 [facility] Comment on above: Order Comment: Call MD with results STAT Result Comment: NOT COLLECTED. Performed By: #### L 500.2500 ####[facility] [address] [place], [address] GAP Normal 5-15 [facility] Comment on above: Order Comment: Call MD with results STAT Result Comment: NOT COLLECTED. Performed By: #### L 500.2500 ####[facility] [address] [place], [address] GLU Normal 74-106 [facility] Comment on above: Order Comment: Call MD with results STAT Result Comment: NOT COLLECTED. Performed By: #### L 500.2500 ####[facility] [address] [place], [address] Potassium Normal 3.5-5.1 [facility] Comment on above: Order Comment: Call MD with results STAT Result Comment: NOT COLLECTED. Performed By: #### L 500.2500 ####[facility] [address] [place], [address] Basic Metabolic Profile (BMP) Normal 136-145 [facility] Comment on above: Order Comment: Call MD with results STAT Result Comment: NOT COLLECTED. Performed By: #### L 500.2500 ####[facility] [address] [place], [address] BUN/CRE 19.6 RATIO Normal 10-20 [facility] Comment on above: Performed By: #### L 500.2500 ####[facility] [address] [place], [address] CA,Total 8.0 mg/dL Low 8.5-10.1 [facility] Comment on above: Performed By: #### L 500.2500 ####[facility] [address] [place], [address] Chloride [Moles/Vol] 112 mmol/L High 98-107 [facility] Comment on above: Performed By: #### L 500.2500 ####[facility] [address] [place], [address] CO2 [Moles/Vol] 18.0 mmol/L Low 21.0-32.0 [facility] Comment on above: Performed By: #### L 500.2500 ####[facility] [address] [place], [address] Creatinine [Mass/Vol] 0.87 mg/dL Normal 0.55-1.02 [facility] Comment on above: Result Comment: The validity of the calculated GFR GFRAA in patients over70 years has not been determined. Clinical correlation isessential. Performed By: #### L 500.2500 ####[facility] [address] [place], [address] ECRCL 99.71 ml/min Normal [facility] Comment on above: Performed By: #### L 500.2500 ####[facility] [address] [facility] [address] EST GFR - AA 99 mL/min Normal >60 [facility] Comment on above: Result Comment: Afri can Panamanian GFR Calc Performed By: #### L 500.2500 ####[facility] [address] [facility] [address] GAP 10 Normal 5-15 [facility] Comment on above: Performed By: #### L 500.2500 ####[facility] [address] [facility] [address] GFR/1.73 sq M.predicted among non-blacks MDRD (S/P/Bld) [Vol rate/Area] 82 mL/min/{1.73_m2} Normal >60 [facility] Comment on above: Result Comment: Non- GFR Calc Performed By: #### L 500.2500 ####[facility] [address] [place] [id number] Glucose [Mass/Vol] 189 mg/dL High 74-106 [facility] Comment on above: Result Comment: Fast ing Glucose result greater than or equal to 126 mg/dLsuggests DIABETES MELLITUS per A.D.A. criteria. Performed By: #### L 500.2500 ####[facility] [address] [place], [address] Potassium [Moles/Vol] 3.8 mmol/L Normal 3.5-5.1 [facility] Comment on above: Performed By: #### L 500.2500 ####[facility] [address] [place], [address] Sodium [Moles/Vol] 140 mmol/L Normal 136-145 [facility] Comment on above: Performed By: #### L 500.2500 ####[facility] [address] [place], [address] Urea nitrogen [Mass/Vol] 17 mg/dL Normal 7-18 [facility] Comment on above: Performed By: #### L 500.2500 ####[facility] [address] [place], [address] BUN Normal 7-18 [facility] Comment on above: Order Comment: Call MD with results STAT Result Comment: NOT COLLECTED. Performed By: #### L 500.2500 ####[facility] [address] [place], [address] BUN/CRE Normal 10-20 [facility] Comment on above: Order Comment: Call MD with results STAT Result Comment: NOT COLLECTED. Performed By: #### L 500.2500 ####[facility] [address] [place], [address] CA,Total Normal 8.5-10.1 [facility] Comment on above: Order Comment: Call MD with results STAT Result Comment: NOT COLLECTED. Performed By: #### L 500.2500 ####[facility] [address] [place], [address] CL Normal 98-107 [facility] Comment on above: Order Comment: Call MD with results STAT Result Comment: NOT COLLECTED. Performed By: #### L 500.2500 ####[facility] [address] [place], [address] CO2 Normal 21.0-32.0 [facility] Comment on above: Order Comment: Call MD with results STAT Result Comment: NOT COLLECTED. Performed By: #### L 500.2500 ####[facility] [address] [place], [address] CREAT,SERUM Normal 0.55-1.02 [facility] Comment on above: Order Comment: Call MD with results STAT Result Comment: NOT COLLECTED. Performed By: #### L 500.2500 ####[facility] [address] [place], [address] EST GFR Normal >60 [facility] Comment on above: Order Comment: Call MD with results STAT Result Comment: NOT COLLECTED. Performed By: #### L 500.2500 ####[facility] [address] [place], [address] EST GFR - AA Normal >60 [facility] Comment on above: Order Comment: Call MD with results STAT Result Comment: NOT COLLECTED. Performed By: #### L 500.2500 ####[facility] [address] [place], [address] GAP Normal 5-15 [facility] Comment on above: Order Comment: Call MD with results STAT Result Comment: NOT COLLECTED. Performed By: #### L 500.2500 ####[facility] [address] [place], [address] GLU Normal 74-106 [facility] Comment on above: Order Comment: Call MD with results STAT Result Comment: NOT COLLECTED. Performed By: #### L 500.2500 ####[facility] [address] [place], [address] Potassium Normal 3.5-5.1 [facility] Comment on above: Order Comment: Call MD with results STAT Result Comment: NOT COLLECTED. Performed By: #### L 500.2500 ####[facility] [address] [place], [address] Basic Metabolic Profile (BMP) Normal 136-145 [facility] Comment on above: Order Comment: Call MD with results STAT Result Comment: NOT COLLECTED. Performed By: #### L 500.2500 ####[facility] [address] [place], [address] BUN/CRE 19.6 RATIO Normal 10-20 [facility] Comment on above: Order Comment: Call MD with results STAT Performed By: #### L 500.2500 ####[facility] [address] [place], [address] CA,Total 7.9 mg/dL Low 8.5-10.1 [facility] Comment on above: Order Comment: Call MD with results STAT Performed By: #### L 500.2500 ####[facility] [address] [place], [address] Chloride [Moles/Vol] 112 mmol/L High 98-107 [facility] Comment on above: Order Comment: Call MD with results STAT Performed By: #### L 500.2500 ####[facility] [address] [place], [address] CO2 [Moles/Vol] 17.0 mmol/L Low 21.0-32.0 [facility] Comment on above: Order Comment: Call MD with results STAT Performed By: #### L 500.2500 ####[facility] [address] [place], [address] Creatinine [Mass/Vol] 1.02 mg/dL Normal 0.55-1.02 [facility] Comment on above: Order Comment: Call MD with results STAT Result Comment: The validity of the calculated GFR GFRAA in patients over70 years has not been determined. Clinical correlation isessential. Performed By: #### L 500.2500 ####[facility] [address] [place], [address] ECRCL 82.09 ml/min Normal [facility] Comment on above: Order Comment: Call MD with results STAT Performed By: #### L 500.2500 ####[facility] [address] [place], [address] EST GFR - AA 82 mL/min Normal >60 [facility] Comment on above: Order Comment: Call MD with results STAT Result Comment: Afri can Panamanian GFR Calc Performed By: #### L 500.2500 ####[facility] [address] [place], [address] GAP 10 Normal 5-15 [facility] Comment on above: Order Comment: Call MD with results STAT Performed By: #### L 500.2500 ####[facility] [address] [place], [address] GFR/1.73 sq M.predicted among non-blacks MDRD (S/P/Bld) [Vol rate/Area] 68 mL/min/{1.73_m2} Normal >60 [facility] Comment on above: Order Comment: Call MD with results STAT Result Comment: Non- GFR Calc Performed By: #### L 500.2500 ####[facility] [address] [place], [address] Glucose [Mass/Vol] 168 mg/dL High 74-106 [facility] Comment on above: Order Comment: Call MD with results STAT Result Comment: Fast ing Glucose result greater than or equal to 126 mg/dLsuggests DIABETES MELLITUS per A.D.A. criteria. Performed By: #### L 500.2500 ####[facility] [address] [place], [address] Potassium [Moles/Vol] 3.7 mmol/L Normal 3.5-5.1 [facility] Comment on above: Order Comment: Call MD with results STAT Performed By: #### L 500.2500 ####[facility] [address] [place], [address] Sodium [Moles/Vol] 139 mmol/L Normal 136-145 [facility] Comment on above: Order Comment: Call MD with results STAT Performed By: #### L 500.2500 ####[facility] [address] [place], [address] Urea nitrogen [Mass/Vol] 20 mg/dL High 7-18 [facility] Comment on above: Order Comment: Call MD with results STAT Performed By: #### L 500.2500 ####[facility] [address] [place], [address] Bedside Glucoseon 06-08-2024 FINGERSTICK GLU 191 mg/dL High 74-106 [facility] Comment on above: Result Comment: EDGAR GEMENT OF PATIENT CARE PER NURSING PROTOCOL Performed By: #### L 501.080 ####[facility] [address] [place], [address] FINGER[place]ICK GLU 198 mg/dL High 74-106 [facility] Comment on above: Result Comment: EDGAR GEMENT OF PATIENT CARE PER NURSING PROTOCOL Performed By: #### L 501.080 ####[facility] [address] [place], [address] FINGERSTICK GLU 247 mg/dL High 74-106 [facility] Comment on above: Result Comment: EDGAR GEMENT OF PATIENT CARE PER NURSING PROTOCOL Performed By: #### L 501.080 ####[facility] [address] [place], [address] FINGERSTICK GLU 252 mg/dL High 74-106 [facility] Comment on above: Result Comment: EDGAR GEMENT OF PATIENT CARE PER NURSING PROTOCOL Performed By: #### L 501.080 ####[facility] [address] [place], [address] FINGERSTICK GLU 205 mg/dL High 74-106 [facility] Comment on above: Result Comment: EDGAR GEMENT OF PATIENT CARE PER NURSING PROTOCOL Performed By: #### L 501.080 ####[facility] [address] [place], [address] FINGERSTICK GLU 151 mg/dL High 74-106 [facility] Comment on above: Result Comment: EDGAR GEMENT OF PATIENT CARE PER NURSING PROTOCOL Performed By: #### L 501.080 ####[facility] [address] [place], [address] FINGERSTICK GLU 176 mg/dL High 74-106 [facility] Comment on above: Result Comment: EDGAR GEMENT OF PATIENT CARE PER NURSING PROTOCOL Performed By: #### L 501.080 ####[facility] [address] [place], [address] FINGERSTICK GLU 121 mg/dL High 74-106 [facility] Comment on above: Result Comment: EDGAR GEMENT OF PATIENT CARE PER NURSING PROTOCOL Performed By: #### L 501.080 ####[facility] [address] [place], [address] FINGERSTICK GLU 108 mg/dL High 74-106 [facility] Comment on above: Result Comment: EDGAR GEMENT OF PATIENT CARE PER NURSING PROTOCOL Performed By: #### L 501.080 ####[facility] [address] [place], [address] FINGERSTICK GLU 114 mg/dL High 74-106 [facility] Comment on above: Result Comment: EDGAR GEMENT OF PATIENT CARE PER NURSING PROTOCOL Performed By: #### L 501.080 ####[facility] [address] [place], [address] FINGERSTICK GLU 236 mg/dL High 74-106 [facility] Comment on above: Result Comment: EDGAR GEMENT OF PATIENT CARE PER NURSING PROTOCOL Performed By: #### L 501.080 ####[facility] [address] [place], [address] FINGERSTICK GLU 251 mg/dL High 74-106 [facility] Comment on above: Result Comment: EDGAR GEMENT OF PATIENT CARE PER NURSING PROTOCOL Performed By: #### L 501.080 ####[facility] [address] [place], [address] FINGERSTICK GLU 261 mg/dL High 74-106 [facility] Comment on above: Result Comment: EDGAR GEMENT OF PATIENT CARE PER NURSING PROTOCOL Performed By: #### L 501.080 ####[facility] [address] [place], [address] FINGERSTICK GLU 402 mg/dL High 74-106 [facility] Comment on above: Result Comment: EDGAR GEMENT OF PATIENT CARE PER NURSING PROTOCOL Performed By: #### L 501.080 ####[facility] [address] [place], [address] FINGERSTICK GLU 324 mg/dL High 74-106 [facility] Comment on above: Result Comment: EDGAR GEMENT OF PATIENT CARE PER NURSING PROTOCOL Performed By: #### L 501.080 ####[facility] [address] [place], [address] Blood Gases by [facility] 024 GEM TEST Positive Normal [facility] Comment on above: Performed By: #### L 9000.0800 ####[facility] [address] [place], [address] Base excess Calc (Bld) [Moles/Vol] -14 mmol/L Low -2 to +2 [facility] Comment on above: Performed By: #### L 9000.0800 ####[facility] [address] [place], [address] Blood Gas Type ART Normal [facility] Comment on above: Performed By: #### L 9000.0800 ####[facility] [address] [place], [address] CO2 [Moles/Vol] 11 mmol/L Normal [facility] Comment on above: Performed By: #### L 9000.0800 ####[facility] [address] [place], [address] FI02 21.0 Normal [facility] Comment on above: Performed By: #### L 9000.0800 ####[facility] [address] [place], [address] HCO3 (Bld) [Moles/Vol] 10.7 mmol/L Low 22-26 [facility] Comment on above: Performed By: #### L 9000.0800 ####[facility] [address] [place], [address] Mode Not entered [facility] Comment on above: Performed By: #### L 9000.0800 ####[facility] [address] [place], [address] O2 Delivery Dev Room Air [facility] Comment on above: Performed By: #### L 9000.0800 ####[facility] [address] [place], [address] pCO2 17.9 mmHg Invalid Interpretation Code 35-45 [facility] Comment on above: Performed By: #### L 9000.0800 ####[facility] [address] [place], [address] pH (Bld) 7.39 [pH] Normal 7.35-7.45 [facility] Comment on above: Performed By: #### L 9000.0800 ####[facility] [address] [place], [address] PO2 114 mmHG High 75-100 [facility] Comment on above: Performed By: #### L 9000.0800 ####[facility] [address] [place], [address] Read Back By Yes [facility] Comment on above: Performed By: #### L 9000.0800 ####[facility] [address] [place], [address] Results To denia [facility] Comment on above: Performed By: #### L 9000.0800 ####[facility] [address] [place], [address] SITE L Radial Normal [facility] Comment on above: Performed By: #### L 8999.0800 ####[facility] [address] [place], [address] SO2 99 Normal 95-99 [facility] Comment on above: Performed By: #### L 8999.0800 ####[facility] [address] [place], [address] Time Given 09:45:00 Normal [facility] Comment on above: Performed By: #### L 8999.0800 ####[facility] [address] [place], [address] CBC W/Diff, Automatedon 10-1 Absolute Lymph 0.71 X10 3/uL Low 0.83-4.51 [facility] Comment on above: Performed By: #### L 501.5200, L100.0100, L500.4050 ####[facility] [address] [place], [address] Absolute Neut 19.8 X10 3/uL High 2.0-7.7 [facility] Comment on above: Performed By: #### L 501.5200, L100.0100, L500.4050 ####[facility] [address] [place], [address] Basophils/100 WBC (Bld) 0.1 % Normal 0-1 [facility] Comment on above: Performed By: #### L 501.5200, L100.0100, L500.4050 ####[facility] [address] [place], [address] Eosinophils/100 WBC (Bld) 0.0 % Normal 0-5 [facility] Comment on above: Performed By: #### L 501.5200, L100.0100, L500.4050 ####[facility] [address] [place], [address] Erythrocyte distribution width (RBC) [Ratio] 12.9 % Normal 11.6-14.6 [facility] Comment on above: Performed By: #### L 501.5200, L100.0100, L500.4050 ####[facility] [address] [place], [address] Hematocrit (Bld) [Volume fraction] 41.0 % Normal 37-47 [facility] Comment on above: Performed By: #### L 501.5200, L100.0100, L500.4050 ####[facility] [address] [place], [address] Hemoglobin (Bld) [Mass/Vol] 13.2 g/dL Normal 12.0-15.0 [facility] Comment on above: Performed By: #### L 501.5200, L100.0100, L500.4050 ####[facility] [address] [place], [address] IG% 0.900 Normal 0.0-0.9 [facility] Comment on above: Result Comment: IG% - Immature Granulocytes (promyelocytes, myelocytes andmetamyelocytes) > 1% indicates that a LEFT SHIFT is Present. Performed By: #### L 501.5200, L100.0100, L500.4050 ####[facility] [address] [place], [address] Lymphocytes/100 WBC (Bld) 3.3 % Low 19-41 [facility] Comment on above: Performed By: #### L 501.5200, L100.0100, L500.4050 ####[facility] [address] [place], [address] MCH (RBC) [Entitic mass] 29.7 pg Normal 27.0-32.0 [facility] Comment on above: Performed By: #### L 501.5200, L100.0100, L500.4050 ####[facility] [address] [place], [address] MCHC (RBC) [Mass/Vol] 32.2 g/dL Normal 32-36 [facility] Comment on above: Performed By: #### L 501.5200, L100.0100, L500.4050 ####[facility] [address] [place], [address] MCV (RBC) [Entitic vol] 92.1 fL Normal 81-99 [facility] Comment on above: Performed By: #### L 501.5200, L100.0100, L500.4050 ####[facility] [address] [place], [address] Monocytes/100 WBC (Bld) 4.9 % Normal 0-10 [facility] Comment on above: Performed By: #### L 501.5200, L100.0100, L500.4050 ####[facility] [address] [place], [address] Neutrophils/100 WBC (Bld) 90.8 % High 47-70 [facility] Comment on above: Performed By: #### L 501.5200, L100.0100, L500.4050 ####[facility] [address] [place], [address] Nucleated RBC (Bld) [#/Vol] 0 10*3/uL Normal 0-5 [facility] Comment on above: Performed By: #### L 501.5200, L100.0100, L500.4050 ####[facility] [address] [place], [address] Platelet mean volume (Bld) [Entitic vol] 13.6 fL High 6.2-12.0 [facility] Comment on above: Performed By: #### L 501.5200, L100.0100, L500.4050 ####[facility] [address] [place], [address] Platelets (Bld) [#/Vol] 171 10*3/uL Normal 150-450 [facility] Comment on above: Performed By: #### L 501.5200, L100.0100, L500.4050 ####[facility] [address] [place], [address] RBC (Bld) [#/Vol] 4.45 10*6/uL Normal 4.2-5.4 [facility] Comment on above: Performed By: #### L 501.5200, L100.0100, L500.4050 ####[facility] [address] [place], [address] RDW SD 43.6 fl Normal 35.1-43.9 [facility] Comment on above: Performed By: #### L 501.5200, L100.0100, L500.4050 ####[facility] [address] [place], [address] WBC (Bld) [#/Vol] 21.8 10*3/uL High 4.4-11.0 [facility] Comment on above: Performed By: #### L 501.5200, L100.0100, L500.4050 ####[facility] [address] [place], [address] Comprehensive Metabolic Prof ilon 06-08-2024 Albumin [Mass/Vol] 3.9 g/dL Normal 3.2-5.0 [facility] Comment on above: Performed By: #### L 501.5200, L100.0100, L500.4050 ####[facility] [address] [place], [address] Albumin/Globulin [Mass ratio] 1.2 {ratio} Normal 0.9-2.4 [facility] Comment on above: Performed By: #### L 501.5200, L100.0100, L500.4050 ####[facility] [address] [place], [address] ALK P 90 U/L Normal 45-117 [facility] Comment on above: Performed By: #### L 501.5200, L100.0100, L500.4050 ####[facility] [address] [place], [address] ALT [Catalytic activity/Vol] 21 U/L Normal 13-56 [facility] Comment on above: Performed By: #### L 501.5200, L100.0100, L500.4050 ####[facility] [address] [place], [address] AST [Catalytic activity/Vol] 15 U/L Normal 15-37 [facility] Comment on above: Performed By: #### L 501.5200, L100.0100, L500.4050 ####[facility] [address] [place], [address] Bilirubin [Mass/Vol] 1.30 mg/dL High 0.20-1.00 [facility] Comment on above: Result Comment: For patients on eltrombopag therapy, use of Dimension [place] TBIL is not recommended. Performed By: #### L 501.5200, L100.0100, L500.4050 ####[facility] [address] [place], [address] BUN/CRE 22.0 RATIO High 10-20 [facility] Comment on above: Performed By: #### L 501.5200, L100.0100, L500.4050 ####[facility] [address] [place], [address] CA,Total 8.9 mg/dL Normal 8.5-10.1 [facility] Comment on above: Performed By: #### L 501.5200, L100.0100, L500.4050 ####[facility] [address] [place], [address] Chloride [Moles/Vol] 100 mmol/L Normal 98-107 [facility] Comment on above: Performed By: #### L 501.5200, L100.0100, L500.4050 ####[facility] [address] [place], [address] CO2 [Moles/Vol] 12.0 mmol/L Low 21.0-32.0 [facility] Comment on above: Performed By: #### L 501.5200, L100.0100, L500.4050 ####[facility] [address] [place], [address] Creatinine [Mass/Vol] 1.00 mg/dL Normal 0.55-1.02 [facility] Comment on above: Result Comment: The validity of the calculated GFR GFRAA in patients over70 years has not been determined. Clinical correlation isessential. Performed By: #### L 501.5200, L100.0100, L500.4050 ####[facility] [address] [place], [address] ECRCL 83.74 ml/min Normal [facility] Comment on above: Performed By: #### L 501.5200, L100.0100, L500.4050 ####[facility] [address] [place], [address] EST GFR - AA 84 mL/min Normal >60 [facility] Comment on above: Result Comment: Afri can Panamanian GFR Calc Performed By: #### L 501.5200, L100.0100, L500.4050 ####[facility] [address] [place], [address] GAP 18 High 5-15 [facility] Comment on above: Performed By: #### L 501.5200, L100.0100, L500.4050 ####[facility] [address] [place], [address] GFR/1.73 sq M.predicted among non-blacks MDRD (S/P/Bld) [Vol rate/Area] 69 mL/min/{1.73_m2} Normal >60 [facility] Comment on above: Result Comment: Non- GFR Calc Performed By: #### L 501.5200, L100.0100, L500.4050 ####[facility] [address] [place], [address] Globulin (S) [Mass/Vol] 3.2 g/dL Normal 2.2-4.2 [facility] Comment on above: Performed By: #### L 501.5200, L100.0100, L500.4050 ####[facility] [address] [place], [address] Glucose [Mass/Vol] 398 mg/dL High 74-106 [facility] Comment on above: Result Comment: Gluc ose result greater than or equal to 200 mg/dLsuggests DIABETES MELLITUS per A.D.A. criteria. Performed By: #### L 501.5200, L100.0100, L500.4050 ####[facility] [address] [place], [address] Potassium [Moles/Vol] 4.2 mmol/L Normal 3.5-5.1 [facility] Comment on above: Performed By: #### L 501.5200, L100.0100, L500.4050 ####[facility] [address] [place], [address] Sodium [Moles/Vol] 131 mmol/L Low 136-145 [facility] Comment on above: Performed By: #### L 501.5200, L100.0100, L500.4050 ####[facility] [address] [place], [address] T PROT 7.1 g/dL Normal 6.4-8.2 [facility] Comment on above: Performed By: #### L 501.5200, L100.0100, L500.4050 ####[facility] [address] [place], [address] Urea nitrogen [Mass/Vol] 22 mg/dL High 7-18 [facility] Comment on above: Performed By: #### L 501.5200, L100.0100, L500.4050 ####[facility] [address] [place], [address] Hemoglobin A1con 06-08-2024 HbA1c (Bld) [Mass fraction] 8.6 % High 3.8-5.6 [facility] Comment on above: Result Comment: Norm al < 5.7 % Prediabetic 5.7 - 6.4 % Diabetic >or= 6.5 % Please note range changes. Performed By: #### L 501.9999 ####[facility] [address] [place], [address] Magnesiumon 06-08-2024 Magnesium [Mass/Vol] 1.8 mg/dL Normal 1.6-2.6 [facility] Comment on above: Performed By: #### L 501.5200, L100.0100, L500.4050 ####[facility] [address] [place], [address] Abdomen/Pelvis W IV Cont ONL Yon 06-07-2024 Abdomen/Pelvis W IV Cont ONLY Normal [facility] Bedside Glucoseon 06-07-2024 FINGERSTICK GLU 422 mg/dL High 74-106 [facility] Comment on above: Result Comment: EDGAR GEMENT OF PATIENT CARE PER NURSING PROTOCOL Performed By: #### L 501.080 ####[facility] [address] [place], [address] FINGERSTICK GLU 331 mg/dL High 74-106 [facility] Comment on above: Result Comment: EDGAR HUNG OF PATIENT CARE PER NURSING PROTOCOL Performed By: #### L 501.080 ####[facility] [address] [place], [address] CBC W/Diff, Automatedon 10- Absolute Lymph 0.76 X10 3/uL Low 0.83-4.51 [facility] Comment on above: Performed By: #### L 501.4020, L100.0100, L501.2450, L500.4050 ####[facility] [address] [place], [address] Absolute Neut 14.6 X10 3/uL High 2.0-7.7 [facility] Comment on above: Performed By: #### L 501.4020, L100.0100, L501.2450, L500.4050 ####[facility] [address] [place], [address] Basophils/100 WBC (Bld) 0.3 % Normal 0-1 [facility] Comment on above: Performed By: #### L 501.4020, L100.0100, L501.2450, L500.4050 ####[facility] [address] [place], [address] Eosinophils/100 WBC (Bld) 0.0 % Normal 0-5 [facility] Comment on above: Performed By: #### L 501.4020, L100.0100, L501.2450, L500.4050 ####[facility] [address] [place], [address] Erythrocyte distribution width (RBC) [Ratio] 12.3 % Normal 11.6-14.6 [facility] Comment on above: Performed By: #### L 501.4020, L100.0100, L501.2450, L500.4050 ####[facility] [address] [place], [address] Hematocrit (Bld) [Volume fraction] 39.5 % Normal 37-47 [facility] Comment on above: Performed By: #### L 501.4020, L100.0100, L501.2450, L500.4050 ####[facility] [address] [place], [address] Hemoglobin (Bld) [Mass/Vol] 13.4 g/dL Normal 12.0-15.0 [facility] Comment on above: Performed By: #### L 501.4020, L100.0100, L501.2450, L500.4050 ####[facility] [address] [place], [address] IG% 0.900 Normal 0.0-0.9 [facility] Comment on above: Result Comment: IG% - Immature Granulocytes (promyelocytes, myelocytes andmetamyelocytes) > 1% indicates that a LEFT SHIFT is Present. Performed By: #### L 501.4020, L100.0100, L501.2450, L500.4050 ####[facility] [address] [place], [address] Lymphocytes/100 WBC (Bld) 4.8 % Low 19-41 [facility] Comment on above: Performed By: #### L 501.4020, L100.0100, L501.2450, L500.4050 ####[facility] [address] [place], [address] MCH (RBC) [Entitic mass] 29.2 pg Normal 27.0-32.0 [facility] Comment on above: Performed By: #### L 501.4020, L100.0100, L501.2450, L500.4050 ####[facility] [address] [place], [address] MCHC (RBC) [Mass/Vol] 33.9 g/dL Normal 32-36 [facility] Comment on above: Performed By: #### L 501.4020, L100.0100, L501.2450, L500.4050 ####[facility] [address] [place], [address] MCV (RBC) [Entitic vol] 86.1 fL Normal 81-99 [facility] Comment on above: Performed By: #### L 501.4020, L100.0100, L501.2450, L500.4050 ####[facility] [address] [place], [address] Monocytes/100 WBC (Bld) 2.6 % Normal 0-10 [facility] Comment on above: Performed By: #### L 501.4020, L100.0100, L501.2450, L500.4050 ####[facility] [address] [place], [address] Neutrophils/100 WBC (Bld) 91.4 % High 47-70 [facility] Comment on above: Performed By: #### L 501.4020, L100.0100, L501.2450, L500.4050 ####[facility] [address] [place], [address] Nucleated RBC (Bld) [#/Vol] 0 10*3/uL Normal 0-5 [facility] Comment on above: Performed By: #### L 501.4020, L100.0100, L501.2450, L500.4050 ####[facility] [address] [place], [address] Platelet mean volume (Bld) [Entitic vol] 13.6 fL High 6.2-12.0 [facility] Comment on above: Performed By: #### L 501.4020, L100.0100, L501.2450, L500.4050 ####[facility] [address] [place], [address] Platelets (Bld) [#/Vol] 167 10*3/uL Normal 150-450 [facility] Comment on above: Performed By: #### L 501.4020, L100.0100, L501.2450, L500.4050 ####[facility] [address] [place], [address] RBC (Bld) [#/Vol] 4.59 10*6/uL Normal 4.2-5.4 [facility] Comment on above: Performed By: #### L 501.4020, L100.0100, L501.2450, L500.4050 ####[facility] [address] [place], [address] RDW SD 38.5 fl Normal 35.1-43.9 [facility] Comment on above: Performed By: #### L 501.4020, L100.0100, L501.2450, L500.4050 ####[facility] [address] [place], [address] WBC (Bld) [#/Vol] 16.0 10*3/uL High 4.4-11.0 [facility] Comment on above: Performed By: #### L 501.4020, L100.0100, L501.2450, L500.4050 ####[facility] [address] [place], [address] Comprehensive Metabolic Prof cajesus 06-07-2024 Albumin [Mass/Vol] 4.1 g/dL Normal 3.2-5.0 [facility] Comment on above: Order Comment: 'TROP ' Serial specimen #1, #2 or #3: 1 Performed By: #### L 501.4020, L100.0100, L501.2450, L500.4050 ####[facility] [address] [place], [address] Albumin/Globulin [Mass ratio] 1.2 {ratio} Normal 0.9-2.4 [facility] Comment on above: Order Comment: 'TROP ' Serial specimen #1, #2 or #3: 1 Performed By: #### L 501.4020, L100.0100, L501.2450, L500.4050 ####[facility] [address] [place], [address] ALK P 87 U/L Normal 45-117 [facility] Comment on above: Order Comment: 'TROP ' Serial specimen #1, #2 or #3: 1 Performed By: #### L 501.4020, L100.0100, L501.2450, L500.4050 ####[facility] [address] [place], [address] ALT [Catalytic activity/Vol] 25 U/L Normal 13-56 [facility] Comment on above: Order Comment: 'TROP ' Serial specimen #1, #2 or #3: 1 Performed By: #### L 501.4020, L100.0100, L501.2450, L500.4050 ####[facility] [address] [place], [address] AST [Catalytic activity/Vol] 15 U/L Normal 15-37 [facility] Comment on above: Order Comment: 'TROP ' Serial specimen #1, #2 or #3: 1 Performed By: #### L 501.4020, L100.0100, L501.2450, L500.4050 ####[facility] [address] [place], [address] Bilirubin [Mass/Vol] 1.30 mg/dL High 0.20-1.00 [facility] Comment on above: Order Comment: 'TROP ' Serial specimen #1, #2 or #3: 1 Result Comment: For patients on eltrombopag therapy, use of Dimension [place] TBIL is not recommended. Performed By: #### L 501.4020, L100.0100, L501.2450, L500.4050 ####[facility] [address] [place], [address] BUN/CRE 19.1 RATIO Normal 10-20 [facility] Comment on above: Order Comment: 'TROP ' Serial specimen #1, #2 or #3: 1 Performed By: #### L 501.4020, L100.0100, L501.2450, L500.4050 ####[facility] [address] [place], [address] CA,Total 9.5 mg/dL Normal 8.5-10.1 [facility] Comment on above: Order Comment: 'TROP ' Serial specimen #1, #2 or #3: 1 Performed By: #### L 501.4020, L100.0100, L501.2450, L500.4050 ####[facility] [address] [place], [address] Chloride [Moles/Vol] 105 mmol/L Normal 98-107 [facility] Comment on above: Order Comment: 'TROP ' Serial specimen #1, #2 or #3: 1 Performed By: #### L 501.4020, L100.0100, L501.2450, L500.4050 ####[facility] [address] [place], [address] CO2 [Moles/Vol] 17.0 mmol/L Low 21.0-32.0 [facility] Comment on above: Order Comment: 'TROP ' Serial specimen #1, #2 or #3: 1 Performed By: #### L 501.4020, L100.0100, L501.2450, L500.4050 ####[facility] [address] [place], [address] Creatinine [Mass/Vol] 0.94 mg/dL Normal 0.55-1.02 [facility] Comment on above: Order Comment: 'TROP ' Serial specimen #1, #2 or #3: 1 Result Comment: The validity of the calculated GFR GFRAA in patients over70 years has not been determined. Clinical correlation isessential. Performed By: #### L 501.4020, L100.0100, L501.2450, L500.4050 ####[facility] [address] [place], [address] ECRCL 92.29 ml/min Normal [facility] Comment on above: Order Comment: 'TROP ' Serial specimen #1, #2 or #3: 1 Performed By: #### L 501.4020, L100.0100, L501.2450, L500.4050 ####[facility] [address] [place], [address] EST GFR - AA 90 mL/min Normal >60 [facility] Comment on above: Order Comment: 'TROP ' Serial specimen #1, #2 or #3: 1 Result Comment: Afri can Panamanian GFR Calc Performed By: #### L 501.4020, L100.0100, L501.2450, L500.4050 ####[facility] [address] [place], [address] GAP 14 Normal 5-15 [facility] Comment on above: Order Comment: 'TROP ' Serial specimen #1, #2 or #3: 1 Performed By: #### L 501.4020, L100.0100, L501.2450, L500.4050 ####[facility] [address] [place], [address] GFR/1.73 sq M.predicted among non-blacks MDRD (S/P/Bld) [Vol rate/Area] 74 mL/min/{1.73_m2} Normal >60 [facility] Comment on above: Order Comment: 'TROP ' Serial specimen #1, #2 or #3: 1 Result Comment: Non- GFR Calc Performed By: #### L 501.4020, L100.0100, L501.2450, L500.4050 ####[facility] [address] [place], [address] Globulin (S) [Mass/Vol] 3.5 g/dL Normal 2.2-4.2 [facility] Comment on above: Order Comment: 'TROP ' Serial specimen #1, #2 or #3: 1 Performed By: #### L 501.4020, L100.0100, L501.2450, L500.4050 ####[facility] [address] [place], [address] Glucose [Mass/Vol] 355 mg/dL High 74-106 [facility] Comment on above: Order Comment: 'TROP ' Serial specimen #1, #2 or #3: 1 Result Comment: Gluc ose result greater than or equal to 200 mg/dLsuggests DIABETES MELLITUS per A.D.A. criteria. Performed By: #### L 501.4020, L100.0100, L501.2450, L500.4050 ####[facility] [address] [place], [address] Potassium [Moles/Vol] 3.4 mmol/L Low 3.5-5.1 [facility] Comment on above: Order Comment: 'TROP ' Serial specimen #1, #2 or #3: 1 Performed By: #### L 501.4020, L100.0100, L501.2450, L500.4050 ####[facility] [address] [place], [address] Sodium [Moles/Vol] 136 mmol/L Normal 136-145 [facility] Comment on above: Order Comment: 'TROP ' Serial specimen #1, #2 or #3: 1 Performed By: #### L 501.4020, L100.0100, L501.2450, L500.4050 ####[facility] [address] [place], [address] T PROT 7.6 g/dL Normal 6.4-8.2 [facility] Comment on above: Order Comment: 'TROP ' Serial specimen #1, #2 or #3: 1 Performed By: #### L 501.4020, L100.0100, L501.2450, L500.4050 ####[facility] [address] [place], [address] Urea nitrogen [Mass/Vol] 18 mg/dL Normal 7-18 [facility] Comment on above: Order Comment: 'TROP ' Serial specimen #1, #2 or #3: 1 Performed By: #### L 501.4020, L100.0100, L501.2450, L500.4050 ####[facility] [address] [place], [address] Emergency Department Summary on 06-07-2024 Emergency Department Summary Normal [facility] H AND P Exam - Hospitaliston 06-07-2024 H&P Exam - Hospitalist Normal [facility] L501.4020on 06-07-2024 TROPONIN-I HS 4 pg/mL Normal 3.0-54.0 [facility] Comment on above: Order Comment: 'TROP ' Serial specimen #1, #2 or #3: 1 Result Comment: Plea se Note: New Test Units and Gender Specific Reference Ranges. For more information see Policy Stat Procedure [place] High Sensitivity Troponin (TNIH) and attachments. Performed By: #### L 501.4020, L100.0100, L501.2450, L500.4050 ####[facility] [address] [place], [address] Lipaseon 06-07-2024 Lipase [Catalytic activity/Vol] 10 U/L Low 13-75 [facility] Comment on above: Order Comment: 'TROP ' Serial specimen #1, #2 or #3: 1 Result Comment: Plea se note:LIPASE revised reference range effective 22.New Lipase methodology. Expected to produce lower valuesthan the previous assay method.NEW Reference Range: 13 - 75 U/L Performed By: #### L 501.4020, L100.0100, L501.2450, L500.4050 ####[facility] [address] [place], [address] ,Urineon 06-07-2024 Beta HCG ( test) Ql (U) Negative Normal [facility] Comment on above: Order Comment: CLEAN CATCH Result Comment: Very dilute urine specimens, as indicated by a low specificgravity, may not contain underwriting sales representative levels of hCG.If is still suspected, a first morning urinespecimen should be collected 48 hours later and tested. Performed By: #### L 400.7600, L400.0001 ####[facility] [address] [place], [address] Urinalysis, Completeon 06-07 BACTERIA 0 SEEN Normal None Seen [facility] Comment on above: Order Comment: CLEAN CATCH Performed By: #### L 400.7600, L400.0001 ####[facility] [address] [place], [address] EPI,SQUAMOUS 0 SEEN Normal 5-10 [facility] Comment on above: Order Comment: CLEAN CATCH Performed By: #### L 400.7600, L400.0001 ####[facility] [address] [place], [address] Mucus Ql (Urine sed) 0 SEEN Normal [facility] Comment on above: Order Comment: CLEAN CATCH Performed By: #### L 400.7600, L400.0001 ####[facility] [address] [place], [address] RBC 0 SEEN Normal 0-5 [facility] Comment on above: Order Comment: CLEAN CATCH Performed By: #### L 400.7600, L400.0001 ####[facility] [address] [place], [address] WBC 0 SEEN Normal 0-5 [facility] Comment on above: Order Comment: CLEAN CATCH Performed By: #### L 400.7600, L400.0001 ####[facility] [address] 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 Re Gonzalez, STIVEN 05/17/2024 10:09 AM Signed JOSE 03/12/24 Jsohua CAMPA 05/28/24 Josue Pt uses [facility] for supplies Has had loaner pump x3 months through [employer] and now has to return it or pay $3000 out of pocket. Advised pt she has to call [facility] and have them send us an [...] updated if any issues. Jessica Guerrero APRN.CNP [facility] 05/24/2024 1:01 PM Signed Patient [...] not received any new order forms from [facility] or [employer] Advised pt to reach out. 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 Normal [facility] 36on 05-06-2024 36 Medication: Skyrizi 150mg/ml Dosing Schedule: 150mg every 12 weeks Prior Authorization: Submitted date: 05.06.2024 [place] reference #: [id number] Approval dates: 05.06.2024-08.27.2024 Caitie Light Liaison [facility] [phone] [facility] CNOVon 03-12-2024 CNOV Office Visit (ENDOIN ) KATHLEEN VILLA Brynn ([id number]) 1995 F CHT Date Time Provider Department [...] 149 Trigly (more content not included)... Normal [facility] HEMOGLOBIN A1C (POC)on 03-12 HbA1c (Bld) [Mass fraction] 8.8 % Abnormal 4.3 - 5.6 % [facility] Comment on above: Location:[address], [place], [place], [address] Point of care (POC) Hemoglobin A1c (HGBA1C) [...] specific diabetes management situations: The POC device culvert installer provides a normal range of 4.2% to 6.5% for the HGBA1C POC test. However, the [place] [employer] guidelines indicate that patients with [...] Interpretation and review of laboratory results Abnormal [facility] CNPNon 03-02-2024 CNPN Telephone (ENDOIN) KATHLEEN VILLA ([id number]) 1995 F CHT Date Time Provider Department [...] Date Reviewed: 12/13/2023 Reviewed by: Jessica Guerrero APRN.SHORE HAND DREDGE OR BARGE - Fully Assessed Reason for Visit: Forms [...] (post-traumatic stress disorder) [F43.10] 12/25/2012 DVT prophylaxis [[id number]] 12/25/2012 09/04/2013 DISPOSITION AND FOLLOW-UP [V999.01] 12/25/2012 09/04/2013 HTN (hypertension) [I10] Hypertension in , antepartum [O16.9] 09/19/2013 01/08/2014 GBS (group B Streptococcus carrier), +RV cultur*11/11/2013 04/16/2014 [Z34.90] 11/22/2013 04/16/2014 Diabetes mellitus in (HCC) [O24.919] 12/25/2013 04/16/2014 Diabetic ketoacidosis without coma associated w*01/08/2014 02/04/2023 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] 01/08/2014 DVT prophylaxis [[id number]] 02/25/2014 04/16/2014 care and examination [Z39.2] 02/25/2014 [...] Encounter Status:Closed by ESTRELLITA MCCLENDON on 03/05/24 [facility] 02-14-2024 CNPN Telephone (ENDOIN) DAISYKATHLEEN Richter ([id number]) 1995 F CHT Date Time Provider Department 02/14/24 KVNG LEWIS During your visit today, we recorded the following information about you: Jennifer Ramos 02/14/2024 1:51 PM Signed Patient stated that her 630G pump malfunctioned and she had to get a new one. Patient needs to now what settings to put the pump on. Patient can be reached at [phone] Estrellita Mcclendon RN 02/14/2024 4:43 PM Signed [...] Date Reviewed: 12/13/2023 Reviewed by: Jessica Guerrero APRN.SHORE HAND DREDGE OR BARGE - Fully Assessed Reason for Visit: machine [...] (post-traumatic stress disorder) [F43.10] 12/25/2012 DVT prophylaxis [[id number]] 12/25/2012 09/04/2013 DISPOSITION AND FOLLOW-UP [V999.01] 12/25/2012 09/04/2013 HTN (hypertension) [I10] Hypertension in , antepartum [O16.9] 09/19/2013 01/08/2014 GBS (group B Streptococcus carrier), +RV cultur*11/11/2013 04/16/2014 [Z34.90] 11/22/2013 04/16/2014 Diabetes mellitus in (HCC) [O24.919] 12/25/2013 04/16/2014 Diabetic ketoacidosis without coma associated w*01/08/2014 02/04/2023 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] 01/08/2014 DVT prophylaxis [[id number]] 02/25/2014 04/16/2014 care and examination [Z39.2] 02/25/2014 [...] pain [R10.8 (more content not included)... Normal [facility] CNPNon 02-13-2024 CNPN Telephone (ENDOMN) KATHLEEN VILLA ([id number]) 1995 F CHT Date Time Provider Department [...] MD Clinical Fellow PGY-4 Endocrinology and Metabolism [place] Allergies As of Date: 02/13/2024 Noted Allergy [...] Date Reviewed: 12/13/2023 Reviewed by: Jessica Guerrero APRN.SHORE HAND DREDGE OR BARGE - Fully Assessed Reason for Visit: Medication [...] (post-traumatic stress disorder) [F43.10] 12/25/2012 DVT prophylaxis [[id number]] 12/25/2012 09/04/2013 DISPOSITION AND FOLLOW-UP [V999.01] 12/25/2012 09/04/2013 HTN (hypertension) [I10] Hypertension in , antepartum [O16.9] 09/19/2013 01/08/2014 GBS (group B Streptococcus carrier), +RV cultur*11/11/2013 04/16/2014 [Z34.90] 11/22/2013 04/16/2014 Diabetes mellitus in (HCC) [O24.919] 12/25/2013 04/16/2014 Diabetic ketoacidosis without coma associated w*01/08/2014 02/04/2023 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] 01/08/2014 DVT prophylaxis [[id number]] 02/25/2014 04/16/2014 care and examination [Z39.2] 02/25/2014 [...] 08/16/2022 Gastro (more content not included)... Normal [facility] CNOVon 12-13-2023 CNOV Office Visit (ENDOIN ) KATHLEEN VILLA ([id number]) 1995 F CHT Date Time Provider Department [...] Other maternal great grandma I reviewed the Desulphuring Operator's notes with this visit for vital signs, current allergies, medications, electronic medical record, lab(s), outside lab(s), and or back office lab(s) results, history of vaccinations, and chief complaints. I edited the information obtained, as required. HISTORY OF PRESENT ILLNESS Last endo office visit: 08/[address] Joshua Wang Brynn iVlla is a 28 year old female who comes for follow-up of Type 1 DM (more content not included)... Normal [facility] HEMOGLOBIN A1C (POC)on 12-12 HbA1c (Bld) [Mass fraction] 7.1 % Abnormal 4.3 - 5.6 % [facility] Absolute lymphocyte countOrd ered By: Lin Johansen on 10-25-2023 Lymphocytes Auto (Unsp spec) [#/Vol] 2.23 10*3/uL 0.83-4.51 [facility] Automated lymphocyte count a s percentage of total leukocytesOrdered By: Lin Johansen on 10-25-2023 Lymphocytes/100 WBC Auto (Unsp spec) 17.4 % 19-41 [facility] Basophil percentageOrdered B y: Lin Johansen on 10-25-2023 Basophils/100 WBC (Bld) 0.8 % 0-1 [facility] Chloride [Moles/Vol] 106 mmol/L 98-107 [facility] Eosinophils/100 WBC (Bld) 0.7 % 0-5 [facility] Glucose [Mass/Vol] 255 mg/dL 74-106 [facility] Comment on above: Glucose result great er than or equal to 200 mg/dLsuggests DIABETES MELLITUS per A.D.A. criteria. Hemoglobin (Bld) [Mass/Vol] 14.3 g/dL 12.0-15.0 [facility] Monocytes/100 WBC (Bld) 3.7 % 0-10 [facility] Neutrophils (Bld) [#/Vol] 9.8 10*3/uL 2.0-7.7 [facility] Neutrophils/100 WBC (Bld) 76.5 % 47-70 [facility] Potassium [Moles/Vol] 4.3 mmol/L 3.5-5.1 [facility] Sodium [Moles/Vol] 137 mmol/L 136-145 [facility] WBC (Bld) [#/Vol] 12.8 10*3/uL 4.4-11.0 [facility] Determination of erythrocyte mean corpuscular volume (MCV)Ordered By: Lin Johansen on 10-25-2023 MCV (RBC) [Entitic vol] 89.6 fL 81-99 [facility] Erythrocyte distribution wid th ratioOrdered By: Lin Johansen on 10-25-2023 Erythrocyte distribution width (RBC) [Ratio] 13.9 % 11.6-14.6 [facility] Erythrocyte distribution wid th standard deviationOrdered By: Lin Johansen on 10-25-2023 Erythrocyte distribution width (RBC) [Entitic vol] 46.0 fL 35.1-43.9 [facility] Hematocrit Auto (Bld) [Volum e fraction]Ordered By: Lin Johansen on 10-25-2023 Hematocrit (Bld) [Volume fraction] 44.7 % 37-47 [facility] Immature granulocytes/100 WB C Auto (Bld)Ordered By: Lin Johansen on 10-25-2023 Immature granulocytes/100 WBC (Bld) 0.900 % 0.0-0.9 [facility] Comment on above: IG% - Immature Granu locytes (promyelocytes, myelocytes and metamyelocytes) > 1% indicates that a LEFT SHIFT is Present. Laboratory - Chemistry and C hemistry - challengeOrdered By: Lin Johansen on 10-25-2023 CO2 [Moles/Vol] 23.0 mmol/L 21.0-32.0 [facility] Urea nitrogen/Creatinine [Mass ratio] 21.5 mg/mg 10-20 [facility] Laboratory - Drug toxicology Ordered By: Lin Johansen on 10-25-2023 Amphetamines Ql (U) Negative <1000 ng/mL [facility] Benzodiazepines Ql (U) Negative < 200 ng/mL [facility] Cannabinoids Screen Ql (U) Positive < 50 ng/mL [facility] Cocaine Ql (U) Negative < 300 ng/mL [facility] Opiates Ql (U) Negative < 300 ng/mL [facility] Laboratory - Hematology and Cell countsOrdered By: Lin Johansen on 10-25-2023 MCH (RBC) [Entitic mass] 28.7 pg 27.0-32.0 [facility] MCHC (RBC) [Mass/Vol] 32.0 g/dL 32-36 [facility] Nucleated RBC/100 WBC (Bld) [Ratio] 0 % 0-5 [facility] Platelet mean volume (Bld) [Entitic vol] 11.9 fL 6.2-12.0 [facility] Platelets (Bld) [#/Vol] 171 10*3/uL 150-450 [facility] No Panel InformationOrdered By: Lin Johansen on 10-25-2023 Estimated Creatinine Clearance Calc 109.81 ml/min [facility] Estimated GFR (MDRD) Amer 110 mL/min >60 [facility] Comment on above: GFR Calc Estimated GFR (MDRD) Non-Af Amer 91 mL/min >60 [facility] Comment on above: Non- GFR Calc Ethyl Alcohol Level < 3.0 mg/dL [facility] Comment on above: The serum:whole bloo d ethanol ratio is approximately 1.14and varies slightly with hematocrit. Medical Alcohol reference interval and critical value innon-tolerant individuals; 50 - 100 Impairment 100 Intoxication 100 - 250 Severe Poisoning 250 - 400 Deep/possible fatal coma MDMA (Ecstasy) Screen Negative < 500 ng/mL [facility] Urine Barbiturates Screen Negative < 200 ng/mL [facility] Urine Drug Screen Comment [facility] Comment on above: CONFIRMATORY TESTING FOR [...] Methadone Screen Negative < 300 ng/mL [facility] RBC Auto (Bld) [#/Vol]Ordere d By: Lin Johansen on 10-25-2023 RBC (Bld) [#/Vol] 4.99 10*6/uL 4.2-5.4 [facility] Serum or plasma calcium milli urement (mass/volume)Ordered By: Lin Johansen on 10-25-2023 Calcium [Mass/Vol] 9.0 mg/dL 8.5-10.1 [facility] Serum or plasma choriogonado tropin detectionOrdered By: Lin Johansen on 10-25-2023 HCG ( test) Ql Negative [facility] Serum or plasma creatinine m easurement (mass/volume)Ordered By: Lin Johansen on 10-25-2023 Creatinine [Mass/Vol] 0.79 mg/dL 0.55-1.02 [facility] Comment on above: The validity of the calculated GFR & GFRAA in patients over 70 years has not been determined. Clinical correlation is essential. Serum or plasma urea nitroge n measurement (mass/volume)Ordered By: Lin Johansen on 10-25-2023 Urea nitrogen [Mass/Vol] 17 mg/dL 7-18 [facility] Thin prep Papanicolaou smear with manual screeningOrdered By: Lin Johansen on 10-25-2023 Thin prep Papanicolaou smear with manual screening 60 mg/dL 74-106 [facility] Comment on above: MANAGEMENT OF PATIEN T CARE PER NURSING PROTOCOL Thin prep Papanicolaou smear with manual screening 8 5-15 [facility] Urine phencyclidine (PCP) de tectionOrdered By: Lin Johansen on 10-25-2023 Phencyclidine Ql (U) Negative < 25 ng/mL [facility] Absolute lymphocyte countOrd ered By: Vita Ronny on 10-18-2023 Lymphocytes Auto (Unsp spec) [#/Vol] 2.87 10*3/uL 0.83-4.51 [facility] Automated lymphocyte count a s percentage of total leukocytesOrdered By: Vitachase Jefferson on 10-18-2023 Lymphocytes/100 WBC Auto (Unsp spec) 32.5 % 19-41 [facility] Basophil percentageOrdered B y: Vita Ronny on 10-18-2023 Basophils/100 WBC (Bld) 0.3 % 0-1 [facility] Chloride [Moles/Vol] 110 mmol/L 98-107 [facility] Eosinophils/100 WBC (Bld) 1.0 % 0-5 [facility] Glucose [Mass/Vol] 227 mg/dL 74-106 [facility] Comment on above: Glucose result great er than or equal to 200 mg/dLsuggests DIABETES MELLITUS per A.D.A. criteria. Hemoglobin (Bld) [Mass/Vol] 12.0 g/dL 12.0-15.0 [facility] Monocytes/100 WBC (Bld) 6.0 % 0-10 [facility] Neutrophils (Bld) [#/Vol] 5.3 10*3/uL 2.0-7.7 [facility] Neutrophils/100 WBC (Bld) 59.5 % 47-70 [facility] Potassium [Moles/Vol] 4.1 mmol/L 3.5-5.1 [facility] Sodium [Moles/Vol] 138 mmol/L 136-145 [facility] WBC (Bld) [#/Vol] 8.8 10*3/uL 4.4-11.0 [facility] Determination of erythrocyte mean corpuscular volume (MCV)Ordered By: Vita Jefferson on 10-18-2023 MCV (RBC) [Entitic vol] 89.4 fL 81-99 [facility] Erythrocyte distribution wid th ratioOrdered By: Vita Jefferson on 10-18-2023 Erythrocyte distribution width (RBC) [Ratio] 13.2 % 11.6-14.6 [facility] Erythrocyte distribution wid th standard deviationOrdered By: Vita Jefferson on 10-18-2023 Erythrocyte distribution width (RBC) [Entitic vol] 43.0 fL 35.1-43.9 [facility] Hematocrit Auto (Bld) [Volum e fraction]Ordered By: Vita Jefferson on 10-18-2023 Hematocrit (Bld) [Volume fraction] 36.4 % 37-47 [facility] Immature granulocytes/100 WB C Auto (Bld)Ordered By: Vita Jefferson on 10-18-2023 Immature granulocytes/100 WBC (Bld) 0.700 % 0.0-0.9 [facility] Comment on above: IG% - Immature Granu locytes (promyelocytes, myelocytes and metamyelocytes) > 1% indicates that a LEFT SHIFT is Present. Laboratory - Chemistry and C hemistry - challengeOrdered By: Vita Jefferson on 10-18-2023 CO2 [Moles/Vol] 25.0 mmol/L 21.0-32.0 [facility] Urea nitrogen/Creatinine [Mass ratio] 24.0 mg/mg 10-20 [facility] Laboratory - Hematology and Cell countsOrdered By: Vita Jefferson on 10-18-2023 MCH (RBC) [Entitic mass] 29.5 pg 27.0-32.0 [facility] MCHC (RBC) [Mass/Vol] 33.0 g/dL 32-36 [facility] Nucleated RBC/100 WBC (Bld) [Ratio] 0 % 0-5 [facility] Platelet mean volume (Bld) [Entitic vol] 12.1 fL 6.2-12.0 [facility] Platelets (Bld) [#/Vol] 111 10*3/uL 150-450 [facility] No Panel InformationOrdered By: Vita Jefferson on 10-18-2023 Estimated Creatinine Clearance Calc 129.48 ml/min [facility] Estimated GFR (MDRD) Amer 135 mL/min >60 [facility] Comment on above: GFR Calc Estimated GFR (MDRD) Non-Af Amer 111 mL/min >60 [facility] Comment on above: Non- GFR Calc RBC Auto (Bld) [#/Vol]Ordere d By: Vita Jefferson on 10-18-2023 RBC (Bld) [#/Vol] 4.07 10*6/uL 4.2-5.4 [facility] Serum or plasma calcium milli urement (mass/volume)Ordered By: Vita Jefferson on 10-18-2023 Calcium [Mass/Vol] 7.6 mg/dL 8.5-10.1 [facility] Serum or plasma creatinine m easurement (mass/volume)Ordered By: Vita Jefferson on 10-18-2023 Creatinine [Mass/Vol] 0.67 mg/dL 0.55-1.02 [facility] Comment on above: The validity of the calculated GFR & GFRAA in patients over 70 years has not been determined. Clinical correlation is essential. Serum or plasma urea nitroge n measurement (mass/volume)Ordered By: Vita Jefferson on 10-18-2023 Urea nitrogen [Mass/Vol] 16 mg/dL 7-18 [facility] Thin prep Papanicolaou smear with manual screeningOrdered By: Vita Jefferson on 10-18-2023 Thin prep Papanicolaou smear with manual screening 3 5-15 [facility] Absolute lymphocyte countOrd ered By: Alexandro Garces on 10-17-2023 Lymphocytes Auto (Unsp spec) [#/Vol] 1.06 10*3/uL 0.83-4.51 [facility] Automated lymphocyte count a s percentage of total leukocytesOrdered By: Alexandro Garces on 10-17-2023 Lymphocytes/100 WBC Auto (Unsp spec) 7.8 % 19-41 [facility] Basophil percentageOrdered B y: Alexandro Garces on 10-17-2023 Basophils/100 WBC (Bld) 0.4 % 0-1 [facility] Chloride [Moles/Vol] 98 mmol/L 98-107 [facility] Eosinophils/100 WBC (Bld) 0.1 % 0-5 [facility] Glucose [Mass/Vol] 534 mg/dL 74-106 [facility] Comment on above: Critical Result(s) C alled at: 10:55:26 10/17/2023 by: Nan Bray. Results read back by same.Glucose result greater than or equal to 200 mg/dLsuggests DIABETES MELLITUS per A.D.A. criteria. Hemoglobin (Bld) [Mass/Vol] 13.6 g/dL 12.0-15.0 [facility] Monocytes/100 WBC (Bld) 2.4 % 0-10 [facility] Neutrophils (Bld) [#/Vol] 12.0 10*3/uL 2.0-7.7 [facility] Neutrophils/100 WBC (Bld) 88.4 % 47-70 [facility] Potassium [Moles/Vol] 4.8 mmol/L 3.5-5.1 [facility] Sodium [Moles/Vol] 132 mmol/L 136-145 [facility] [place]BC (Bld) [#/Vol] 13.6 10*3/uL 4.4-11.0 [facility] [place] of erythrocyte mean corpuscular volume (MCV)Ordered By: Alexandro Garces on 10-17-2023 MCV (RBC) [Entitic vol] 90.2 fL 81-99 [facility] Erythrocyte distribution wid th ratioOrdered By: Alexandro Garces on 10-17-2023 Erythrocyte distribution width (RBC) [Ratio] 13.1 % 11.6-14.6 [facility] Erythrocyte distribution wid th standard deviationOrdered By: Alexandro Garces on 10-17-2023 Erythrocyte distribution width (RBC) [Entitic vol] 43.1 fL 35.1-43.9 [facility] Hematocrit Auto (Bld) [Volum e fraction]Ordered By: Alexandro Garces on 10-17-2023 Hematocrit (Bld) [Volume fraction] 42.5 % 37-47 [facility] Immature granulocytes/100 WB C Auto (Bld)Ordered By: Alexandro Garces on 10-17-2023 Immature granulocytes/100 WBC (Bld) 0.900 % 0.0-0.9 [facility] Comment on above: IG% - Immature Granu locytes (promyelocytes, myelocytes and metamyelocytes) > 1% indicates that a LEFT SHIFT is Present. Laboratory - Chemistry and C hemistry - challengeOrdered By: Alexandro Garces on 10-17-2023 CO2 [Moles/Vol] 16.0 mmol/L 21.0-32.0 [facility] Urea nitrogen/Creatinine [Mass ratio] 18.6 mg/mg 10-20 [facility] Laboratory - Hematology and Cell countsOrdered By: Alexandro Garces on 10-17-2023 MCH (RBC) [Entitic mass] 28.9 pg 27.0-32.0 [facility] MCHC (RBC) [Mass/Vol] 32.0 g/dL 32-36 [facility] Nucleated RBC/100 WBC (Bld) [Ratio] 0 % 0-5 [facility] Platelet mean volume (Bld) [Entitic vol] 12.2 fL 6.2-12.0 [facility] Platelets (Bld) [#/Vol] 138 10*3/uL 150-450 [facility] No Panel InformationOrdered By: Alexandro Garces on 10-17-2023 Estimated Creatinine Clearance Calc 73.52 ml/min [facility] Estimated GFR (MDRD) Amer 70 mL/min >60 [facility] Comment on above: GFR Calc Estimated GFR (MDRD) Non-Af Amer 58 mL/min >60 [facility] Comment on above: Non- GFR Calc RBC Auto (Bld) [#/Vol]Ordere d By: Alexandro Garces on 10-17-2023 RBC (Bld) [#/Vol] 4.71 10*6/uL 4.2-5.4 [facility] Serum or plasma acetone milli urement (mass/volume)Ordered By: Alexandro Garces on 10-17-2023 Acetone [Mass/Vol] MODERATE NEG [facility] Serum or plasma calcium milli urement (mass/volume)Ordered By: Alexandro Garces on 10-17-2023 Calcium [Mass/Vol] 9.1 mg/dL 8.5-10.1 [facility] Serum or plasma creatinine m easurement (mass/volume)Ordered By: Alexandro Garces on 10-17-2023 Creatinine [Mass/Vol] 1.18 mg/dL 0.55-1.02 [facility] Comment on above: The validity of the calculated GFR & GFRAA in patients over 70 years has not been determined. Clinical correlation is essential. Serum or plasma urea nitroge n measurement (mass/volume)Ordered By: Alexandro Garces on 10-17-2023 Urea nitrogen [Mass/Vol] 22 mg/dL 7-18 [facility] Thin prep Papanicolaou smear with manual screeningOrdered By: Vita Jefferson on 10-17-2023 Thin prep Papanicolaou smear with manual screening 293 mg/dL 74-106 [facility] Comment on above: MANAGEMENT OF PATIEN T CARE PER NURSING PROTOCOL Thin prep Papanicolaou smear with manual screeningOrdered By: Alexandro Garces on 10-17-2023 Thin prep Papanicolaou smear with manual screening 18 5-15 [facility] Absolute lymphocyte countOrd ered By: Olvin Ibarra on 09-25-2023 Lymphocytes Auto (Unsp spec) [#/Vol] 0.95 10*3/uL 0.83-4.51 [facility] Automated lymphocyte count a s percentage of total leukocytesOrdered By: Olvin Ibarra on 09-25-2023 Lymphocytes/100 WBC Auto (Unsp spec) 15.8 % 19-41 [facility] Basophil percentageOrdered B y: Olvin Ibarra on 09-25-2023 Basophils/100 WBC (Bld) 0.3 % 0-1 [facility] Chloride [Moles/Vol] 106 mmol/L 98-107 [facility] Eosinophils/100 WBC (Bld) 0.2 % 0-5 [facility] Glucose [Mass/Vol] 331 mg/dL 74-106 [facility] Comment on above: Glucose result great er than or equal to 200 mg/dLsuggests DIABETES MELLITUS per A.D.A. criteria. Hemoglobin (Bld) [Mass/Vol] 13.2 g/dL 12.0-15.0 [facility] Monocytes/100 WBC (Bld) 12.0 % 0-10 [facility] Neutrophils (Bld) [#/Vol] 4.2 10*3/uL 2.0-7.7 [facility] Neutrophils/100 WBC (Bld) 70.4 % 47-70 [facility] Potassium [Moles/Vol] 3.7 mmol/L 3.5-5.1 [facility] Sodium [Moles/Vol] 135 mmol/L 136-145 [facility] WBC (Bld) [#/Vol] 6.0 10*3/uL 4.4-11.0 [facility] Blood platelet adequacy dete ction by light microscopyOrdered By: Olvin Ibarra on 09-25-2023 Platelets LM Ql (Bld) MOD DEC ADEQ [facility] Determination of erythrocyte mean corpuscular volume (MCV)Ordered By: Olvin Ibarra on 09-25-2023 MCV (RBC) [Entitic vol] 90.2 fL 81-99 [facility] Erythrocyte distribution wid th ratioOrdered By: Olvin Ibarra on 09-25-2023 Erythrocyte distribution width (RBC) [Ratio] 13.8 % 11.6-14.6 [facility] Erythrocyte distribution wid th standard deviationOrdered By: Olvin Ibarra on 09-25-2023 Erythrocyte distribution width (RBC) [Entitic vol] 45.7 fL 35.1-43.9 [facility] Hematocrit Auto (Bld) [Volum e fraction]Ordered By: Olvin Ibarra on 09-25-2023 Hematocrit (Bld) [Volume fraction] 41.6 % 37-47 [facility] Immature granulocytes/100 WB C Auto (Bld)Ordered By: Olvin Ibarra on 09-25-2023 Immature granulocytes/100 WBC (Bld) 1.300 % 0.0-0.9 [facility] Comment on above: IG% - Immature Granu locytes (promyelocytes, myelocytes and metamyelocytes) > 1% indicates that a LEFT SHIFT is Present. Laboratory - Chemistry and C hemistry - challengeOrdered By: Olvin Ibarra on 09-25-2023 CO2 [Moles/Vol] 18.0 mmol/L 21.0-32.0 [facility] Urea nitrogen/Creatinine [Mass ratio] 15.6 mg/mg 10-20 [facility] Laboratory - Hematology and Cell countsOrdered By: Olvin Ibarra on 09-25-2023 MCH (RBC) [Entitic mass] 28.6 pg 27.0-32.0 [facility] MCHC (RBC) [Mass/Vol] 31.7 g/dL 32-36 [facility] Nucleated RBC/100 WBC (Bld) [Ratio] 0 % 0-5 [facility] Platelets (Bld) [#/Vol] 76 10*3/uL 150-450 [facility] No Panel InformationOrdered By: Olvin Ibarra on 09-25-2023 Estimated Creatinine Clearance Calc 96.39 ml/min [facility] Estimated GFR (MDRD) Amer 96 mL/min >60 [facility] Comment on above: GFR Calc Estimated GFR (MDRD) Non-Af Amer 79 mL/min >60 [facility] Comment on above: Non- GFR Calc Platelet mean volume Dong-Ec ker (Bld) [Entitic vol]Ordered By: Olvin Ibarra on 09-25-2023 Platelet mean volume (Bld) [Entitic vol] 12.8 fL 6.2-12.0 [facility] RBC Auto (Bld) [#/Vol]Ordere d By: Olvin Ibarra on 09-25-2023 RBC (Bld) [#/Vol] 4.61 10*6/uL 4.2-5.4 [facility] Serum or plasma calcium milli urement (mass/volume)Ordered By: Olvin Ibarra on 09-25-2023 Calcium [Mass/Vol] 8.4 mg/dL 8.5-10.1 [facility] Serum or plasma creatinine m easurement (mass/volume)Ordered By: Olvin Ibarra on 09-25-2023 Creatinine [Mass/Vol] 0.90 mg/dL 0.55-1.02 [facility] Comment on above: The validity of the calculated GFR & GFRAA in patients over 70 years has not been determined. Clinical correlation is essential. Serum or plasma urea nitroge n measurement (mass/volume)Ordered By: Olvin Ibarra on 09-25-2023 Urea nitrogen [Mass/Vol] 14 mg/dL 7-18 [facility] Thin prep Papanicolaou smear with manual screeningOrdered By: Olvin Ibarra on 09-25-2023 Thin prep Papanicolaou smear with manual screening 11 5-15 [facility] Laboratory - Microbiology an d Antimicrobial susceptibilityOrdered By: Siddharth Michelle on 09-24-2023 SARS-CoV-2 (COVID-19) RNA DANIEL+probe Ql (Unsp spec) Influenzae B [facility] Absolute lymphocyte countOrd ered By: Rm Chirinos on 09-20-2023 Lymphocytes Auto (Unsp spec) [#/Vol] 0.75 10*3/uL 0.83-4.51 [facility] Automated lymphocyte count a s percentage of total leukocytesOrdered By: Rm Chirinos on 09-20-2023 Lymphocytes/100 WBC Auto (Unsp spec) 4.6 % 19-41 [facility] Base excessOrdered By: Rm siddiqi on 09-20-2023 Base excess Calc (BldV) [Moles/Vol] -5 mmol/L -1.0-3.5 [facility] Basophil percentageOrdered B y: Rm Chirinos on 09-20-2023 Basophil percentage 0 SEEN /hpf 0-5 [facility] Basophils/100 WBC (Bld) 0.4 % 0-1 [facility] Chloride [Moles/Vol] 102 mmol/L 98-107 [facility] Eosinophils/100 WBC (Bld) 0.0 % 0-5 [facility] Glucose [Mass/Vol] 534 mg/dL 74-106 [facility] Comment on above: Critical Result(s) C alled at: 12:17:31 09/20/2023 by: Reid Rogers. Colin Lo RN (ER). Results read back by same.Glucose result greater than or equal to 200 mg/dLsuggests DIABETES MELLITUS per A.D.A. criteria. Hemoglobin (Bld) [Mass/Vol] 13.4 g/dL 12.0-15.0 [facility] Monocytes/100 WBC (Bld) 2.8 % 0-10 [facility] Neutrophils (Bld) [#/Vol] 14.7 10*3/uL 2.0-7.7 [facility] Neutrophils/100 WBC (Bld) 91.2 % 47-70 [facility] Potassium [Moles/Vol] 4.9 mmol/L 3.5-5.1 [facility] Sodium [Moles/Vol] 132 mmol/L 136-145 [facility] WBC (Bld) [#/Vol] 16.2 10*3/uL 4.4-11.0 [facility] Bilirubin Test strip Ql (U)O rdered By: Rm Chirinos on 09-20-2023 Bilirubin Ql (U) Negative Negative [facility] CO2 (BldV) [Moles/Vol]Ordere d By: Rmej Chirinos on 09-20-2023 CO2 [Moles/Vol] 22 mmol/L 23-33 [facility] Determination of erythrocyte mean corpuscular volume (MCV)Ordered By: Rm Chirinos on 09-20-2023 MCV (RBC) [Entitic vol] 90.3 fL 81-99 [facility] Erythrocyte distribution wid th ratioOrdered By: [facility] on 09-20-2023 Erythrocyte distribution width (RBC) [Ratio] 13.5 % 11.6-14.6 [facility] Erythrocyte distribution wid th standard deviationOrdered By: [facility] on 09-20-2023 Erythrocyte distribution width (RBC) [Entitic vol] 44.9 fL 35.1-43.9 [facility] Hematocrit Auto (Bld) [Volum e fraction]Ordered By: [facility] on 09-20-2023 Hematocrit (Bld) [Volume fraction] 41.8 % 37-47 [facility] Immature granulocytes/100 WB C Auto (Bld)Ordered By: [facility] on 09-20-2023 Immature granulocytes/100 WBC (Bld) 1.000 % 0.0-0.9 [facility] Comment on above: IG% - Immature Granu locytes (promyelocytes, myelocytes and metamyelocytes) > 1% indicates that a LEFT SHIFT is Present. Ketones Test strip Ql (U)Ord ered By: [facility] on 09-20-2023 Ketones Ql (U) 150 mg/dl Negative [facility] Comment on above: CRITICAL VALUE *HCRI TICAL VALUE VERIFIED. CALLED TO WILFREDO SALEEM (ER)09/20/23 1215 [address].RESULTS READ BACK BY SAME. Laboratory - Chemistry and C hemistry - challengeOrdered By: [facility] on 09-20-2023 CO2 [Moles/Vol] 21.0 mmol/L 21.0-32.0 [facility] Urea nitrogen/Creatinine [Mass ratio] 19.1 mg/mg 10-20 [facility] Laboratory - Hematology and Cell countsOrdered By: [facility] on 09-20-2023 MCH (RBC) [Entitic mass] 28.9 pg 27.0-32.0 [facility] MCHC (RBC) [Mass/Vol] 32.1 g/dL 32-36 [facility] Nucleated RBC/100 WBC (Bld) [Ratio] 0 % 0-5 [facility] Platelets (Bld) [#/Vol] 111 10*3/uL 150-450 [facility] Mucus LM Ql (Urine sed)Order ed By: Rm Chirinos on 09-20-2023 Mucus Ql (Urine sed) 0 SEEN /hpf [facility] Nitrite Test strip Ql (U)Ord ered By: Rm Chirinos on 09-20-2023 Nitrite Ql (U) Negative Negative [facility] No Panel InformationOrdered By: Rm Chirinos on 09-20-2023 Blood Gas Sample Site Not entered [facility] Blood Gas Specimen Type ISABELLE [facility] Oxygen Delivery Device Room Air [facility] Urine RBC 0 SEEN /hpf 0-5 [facility] Estimated Creatinine Clearance Calc 93.93 ml/min [facility] Estimated GFR (MDRD) Amer 85 mL/min >60 [facility] Comment on above: GFR Calc Estimated GFR (MDRD) Non-Af Amer 70 mL/min >60 [facility] Comment on above: Non- GFR Calc PCO2 venousOrdered By: Rm siddiqi on 09-20-2023 CO2 (BldV) [Partial pressure] 37.3 mm[Hg] 41-51 [facility] PO2 venousOrdered By: Rm sahni on 09-20-2023 Oxygen (BldV) [Partial pressure] 64 mm[Hg] 25-40 [facility] Platelet mean volume Dong-Ec ker (Bld) [Entitic vol]Ordered By: Rm Chirinos on 09-20-2023 Platelet mean volume (Bld) [Entitic vol] 13.3 fL 6.2-12.0 [facility] Protein Test strip Ql (U)Ord ered By: Rm Chirinos on 09-20-2023 Protein Ql (U) 15 mg/dl Negative [facility] RBC Auto (Bld) [#/Vol]Ordere d By: Rm Chirinos on 09-20-2023 RBC (Bld) [#/Vol] 4.63 10*6/uL 4.2-5.4 [facility] Serum or plasma calcium milli urement (mass/volume)Ordered By: Rm Chirinos on 09-20-2023 Calcium [Mass/Vol] 8.8 mg/dL 8.5-10.1 [facility] Serum or plasma creatinine m easurement (mass/volume)Ordered By: Rm Chirinos on 09-20-2023 Creatinine [Mass/Vol] 1.00 mg/dL 0.55-1.02 [facility] Comment on above: The validity of the calculated GFR & GFRAA in patients over 70 years has not been determined. Clinical correlation is essential. Serum or plasma urea nitroge n measurement (mass/volume)Ordered By: Rm Chirinos on 09-20-2023 Urea nitrogen [Mass/Vol] 19 mg/dL 7-18 [facility] Squamous epithelial cells de tection in urine sediment by light microscopyOrdered By: Rm Chirinos on 09-20-2023 Epithelial cells.squamous LM Ql (Urine sed) 0-5 SEEN /hpf 5-10 [facility] Thin prep Papanicolaou smear with manual screeningOrdered By: mR Chirinos on 09-20-2023 Thin prep Papanicolaou smear with manual screening 264 mg/dL 74-106 [facility] Comment on above: MANAGEMENT OF PATIEN T CARE PER NURSING PROTOCOL Thin prep Papanicolaou smear with manual screening 9 5-15 [facility] Urine blood detectionOrdered By: Rm Chirinos on 09-20-2023 RBC Ql (U) Negative Negative [facility] Urine clarityOrdered By: Rm Chirinos on 09-20-2023 Clarity (U) Sl. Cloudy Clear [facility] Urine color determinationOrd ered By: Rm Chirinos on 09-20-2023 Color (U) Yellow Yellow [facility] Urine glucose detectionOrder ed By: Rm Chirinos on 09-20-2023 Glucose Ql (U) 1000 mg/dl Normal [facility] Urine leukocyte esterase det ection by dipstickOrdered By: Rm Chirinos on 09-20-2023 Leukocyte esterase Test strip Ql (U) Negative Negative [facility] Urine pHOrdered By: Rm pagan on 09-20-2023 pH (U) 6.0 [pH] 5.0 - 8.0 [facility] Urine sediment bacteria coun t by microscopy (number/high power field)Ordered By: Rm Chirinos on 09-20-2023 Bacteria LM.HPF (Urine sed) [#/Area] 0 /[HPF] None Seen [facility] Urine specific gravity measu rementOrdered By: Rm Chirinos on 09-20-2023 Specific gravity (U) [Rel density] 1.010 1.002-1.030 [facility] Urine urobilinogen measureme ntOrdered By: Rm Cooko on 09-20-2023 Urobilinogen Ql (U) Normal mg/dl Normal [facility] Venous blood bicarbonate penelope surementOrdered By: Rm Cooko on 09-20-2023 HCO3 (BldCoV) [Moles/Vol] 21 mmol/L 22-26 [facility] Venous blood oxygen saturati on (pure mass fraction)Ordered By: Rm Chirinos on 09-20-2023 SaO2% (BldV) [Pure mass fraction] 91 % 50-70 [facility] Venous blood pH measurementO rdered By: Rm Cooko on 09-20-2023 pH (BldV) 7.35 [pH] 7.32-7.42 [facility] Absolute lymphocyte countOrd ered By: Greg Philip on 09-06-2023 Lymphocytes Auto (Unsp spec) [#/Vol] 2.47 10*3/uL 0.83-4.51 [facility] Basophil percentageOrdered B y: Greg Philip on 09-06-2023 Basophil percentage 0-5 SEEN /hpf 0-5 [facility] Basophils/100 WBC (Bld) 0.4 % 0-1 [facility] Bilirubin [Mass/Vol] 0.50 mg/dL 0.20-1.00 [facility] Comment on above: For patients on eltr ombopag therapy, use of Dimension [place] TBIL is not recommended. Chloride [Moles/Vol] 111 mmol/L 98-107 [facility] Eosinophils/100 WBC (Bld) 0.7 % 0-5 [facility] Glucose [Mass/Vol] 101 mg/dL 74-106 [facility] Comment on above: Fasting Glucose resu lt from 100 to 125 mg/dL suggests IMPAIRED HOMEOSTASIS per A.D.A. criteria. Neutrophils (Bld) [#/Vol] 6.5 10*3/uL 2.0-7.7 [facility] Neutrophils/100 WBC (Bld) 67.1 % 47-70 [facility] Potassium [Moles/Vol] 3.9 mmol/L 3.5-5.1 [facility] Protein [Mass/Vol] 6.8 g/dL 6.4-8.2 [facility] Sodium [Moles/Vol] 142 mmol/L 136-145 [facility] WBC (Bld) [#/Vol] 9.6 10*3/uL 4.4-11.0 [facility] Beta hCG serum qualOrdered B y: Greg Philip on 09-06-2023 Beta HCG ( test) Ql Negative [facility] Bilirubin Test strip Ql (U)O rdered By: Greg Philip on 09-06-2023 Bilirubin Ql (U) Negative Negative [facility] Blood erythrocytes count (nu mber/volume)Ordered By: Greg Philip on 09-06-2023 RBC (Bld) [#/Vol] 4.34 10*6/uL 4.2-5.4 [facility] Blood hemoglobin measurement (mass/volume)Ordered By: Greg Philip on 09-06-2023 Hemoglobin (Bld) [Mass/Vol] 12.7 g/dL 12.0-15.0 [facility] Blood lymphocytes/100 leukoc ytesOrdered By: Greg Philip on 09-06-2023 Lymphocytes/100 WBC (Bld) 25.6 % 19-41 [facility] Blood monocytes/100 leukocyt esOrdered By: Greg Philip on 09-06-2023 Monocytes/100 WBC (Bld) 5.7 % 0-10 [facility] Blood platelet mean volumeOr dered By: Greg Philip on 09-06-2023 Platelet mean volume (Bld) [Entitic vol] 12.4 fL 6.2-12.0 [facility] Determination of erythrocyte mean corpuscular volume (MCV)Ordered By: Greg Philip on 09-06-2023 MCV (RBC) [Entitic vol] 91.0 fL 81-99 [facility] Hematocrit Auto (Bld) [Volum e fraction]Ordered By: Greg Philip on 09-06-2023 Hematocrit (Bld) [Volume fraction] 39.5 % 37-47 [facility] Ketones Test strip Ql (U)Ord ered By: Greg Philip on 09-06-2023 Ketones Ql (U) 5 mg/dl Negative [facility] Laboratory - Chemistry and C hemistry - challengeOrdered By: Greg Philip on 09-06-2023 ALP [Catalytic activity/Vol] 69 U/L 45-117 [facility] ALT [Catalytic activity/Vol] 47 U/L 13-56 [facility] CO2 [Moles/Vol] 27.0 mmol/L 21.0-32.0 [facility] Globulin (S) [Mass/Vol] 3.2 g/dL 2.2-4.2 [facility] Urea nitrogen/Creatinine [Mass ratio] 22.9 mg/mg 10-20 [facility] Laboratory - Hematology and Cell countsOrdered By: Greg Philip on 09-06-2023 Erythrocyte distribution width (RBC) [Entitic vol] 45.5 fL 35.1-43.9 [facility] Erythrocyte distribution width (RBC) [Ratio] 13.6 % 11.6-14.6 [facility] Immature granulocytes/100 WBC (Bld) 0.500 % 0.0-0.9 [facility] Comment on above: IG% - Immature Granu locytes (promyelocytes, myelocytes and metamyelocytes) > 1% indicates that a LEFT SHIFT is Present. MCH (RBC) [Entitic mass] 29.3 pg 27.0-32.0 [facility] Nucleated RBC/100 WBC (Bld) [Ratio] 0 % 0-5 [facility] MCHC Auto (RBC) [Mass/Vol]Or dered By: Greg Philip on 09-06-2023 MCHC (RBC) [Mass/Vol] 32.2 g/dL 32-36 [facility] Mucus LM Ql (Urine sed)Order ed By: Greg Philip on 09-06-2023 Mucus Ql (Urine sed) 1+ /hpf [facility] Nitrite Test strip Ql (U)Ord ered By: Greg Philip on 09-06-2023 Nitrite Ql (U) Negative Negative [facility] No Panel InformationOrdered By: Greg Philip on 09-06-2023 Estimated Creatinine Clearance Calc 131.44 ml/min [facility] Estimated GFR (MDRD) Amer 137 mL/min >60 [facility] Comment on above: GFR Calc Estimated GFR (MDRD) Non-Af Amer 113 mL/min >60 [facility] Comment on above: Non- GFR Calc Platelets bldOrdered By: Allyn Philip on 09-06-2023 Platelets (Bld) [#/Vol] 144 10*3/uL 150-450 [facility] Protein Test strip Ql (U)Ord ered By: Greg Philip on 09-06-2023 Protein Ql (U) 15 mg/dl Negative [facility] Serum or plasma albumin milli urement (mass/volume)Ordered By: Greg Philip on 09-06-2023 Albumin [Mass/Vol] 3.6 g/dL 3.2-5.0 [facility] Serum or plasma albumin/glob ulin mass ratioOrdered By: Greg Philip on 09-06-2023 Albumin/Globulin [Mass ratio] 1.1 {ratio} 0.9-2.4 [facility] Serum or plasma calcium milli urement (mass/volume)Ordered By: Greg Philip on 09-06-2023 Calcium [Mass/Vol] 8.5 mg/dL 8.5-10.1 [facility] Serum or plasma creatinine m easurement (mass/volume)Ordered By: Greg Philip on 09-06-2023 Creatinine [Mass/Vol] 0.66 mg/dL 0.55-1.02 [facility] Comment on above: The validity of the calculated GFR & GFRAA in patients over 70 years has not been determined. Clinical correlation is essential. Serum or plasma urea nitroge n measurement (mass/volume)Ordered By: Greg Philip on 09-06-2023 Urea nitrogen [Mass/Vol] 15 mg/dL 7-18 [facility] Squamous epithelial cells de tection in urine sediment by light microscopyOrdered By: Greg Philip on 09-06-2023 Epithelial cells.squamous LM Ql (Urine sed) 5-10 SEEN /hpf 5-10 [facility] Thin prep Papanicolaou smear with manual screeningOrdered By: Greg Philip on 09-06-2023 Thin prep Papanicolaou smear with manual screening 28 U/L 15-37 [facility] Thin prep Papanicolaou smear with manual screening 4 5-15 [facility] Urine blood detectionOrdered By: Greg Philip on 09-06-2023 RBC Ql (U) Negative Negative [facility] RBC Ql (U) 0 SEEN /hpf 0-5 [facility] Urine clarityOrdered By: Allyn Philip on 09-06-2023 Clarity (U) Clear Clear [facility] Urine color determinationOrd ered By: Greg Philip on 09-06-2023 Color (U) Yellow Yellow [facility] Urine glucose detectionOrder ed By: Greg Philip on 09-06-2023 Glucose Ql (U) 50 mg/dl Normal [facility] Urine leukocyte esterase det ection by dipstickOrdered By: Greg Philip on 09-06-2023 Leukocyte esterase Test strip Ql (U) Negative Negative [facility] Urine pHOrdered By: Greg sun on 09-06-2023 pH (U) 6.5 [pH] 5.0 - 8.0 [facility] Urine sediment bacteria coun t by microscopy (number/high power field)Ordered By: Greg Philip on 09-06-2023 Bacteria LM.HPF (Urine sed) [#/Area] 0 /[HPF] None Seen [facility] Urine specific gravity measu rementOrdered By: Greg Philip on 09-06-2023 Specific gravity (U) [Rel density] 1.020 1.002-1.030 [facility] Urobilinogen Auto test strip Ql (U)Ordered By: Greg Philip on 09-06-2023 Urobilinogen Ql (U) 1 mg/dl Normal [facility] Absolute lymphocyte countOrd ered By: Marc Carl on 08-22-2023 Lymphocytes Auto (Unsp spec) [#/Vol] 2.29 10*3/uL 0.83-4.51 [facility] Basophil percentageOrdered B y: Marc Carl on 08-22-2023 Basophil percentage 0 SEEN /hpf 0-5 [facility] Basophils/100 WBC (Bld) 0.6 % 0-1 [facility] Bilirubin [Mass/Vol] 0.50 mg/dL 0.20-1.00 [facility] Comment on above: For patients on eltr ombopag therapy, use of Dimension [place] TBIL is not recommended. Chloride [Moles/Vol] 106 mmol/L 98-107 [facility] Eosinophils/100 WBC (Bld) 0.9 % 0-5 [facility] Glucose [Mass/Vol] 397 mg/dL 74-106 [facility] Comment on above: Glucose result great er than or equal to 200 mg/dLsuggests DIABETES MELLITUS per A.D.A. criteria. Neutrophils (Bld) [#/Vol] 4.8 10*3/uL 2.0-7.7 [facility] Neutrophils/100 WBC (Bld) 60.5 % 47-70 [facility] Potassium [Moles/Vol] 4.1 mmol/L 3.5-5.1 [facility] Protein [Mass/Vol] 6.6 g/dL 6.4-8.2 [facility] Sodium [Moles/Vol] 138 mmol/L 136-145 [facility] WBC (Bld) [#/Vol] 8.0 10*3/uL 4.4-11.0 [facility] Bilirubin Test strip Ql (U)O rdered By: Marc Carl on 08-22-2023 Bilirubin Ql (U) Negative Negative [facility] Blood erythrocytes count (nu mber/volume)Ordered By: Marc Carl on 08-22-2023 RBC (Bld) [#/Vol] 4.04 10*6/uL 4.2-5.4 [facility] Blood hemoglobin measurement (mass/volume)Ordered By: Marc Carl on 08-22-2023 Hemoglobin (Bld) [Mass/Vol] 11.6 g/dL 12.0-15.0 [facility] Blood lymphocytes/100 leukoc ytesOrdered By: Marc Carl on 08-22-2023 Lymphocytes/100 WBC (Bld) 28.7 % 19-41 [facility] Blood monocytes/100 leukocyt esOrdered By: Marc Carl on 08-22-2023 Monocytes/100 WBC (Bld) 7.9 % 0-10 [facility] Blood platelet mean volumeOr dered By: Marc Carl on 08-22-2023 Platelet mean volume (Bld) [Entitic vol] 12.0 fL 6.2-12.0 [facility] Determination of erythrocyte mean corpuscular volume (MCV)Ordered By: Marc Carl on 08-22-2023 MCV (RBC) [Entitic vol] 92.3 fL 81-99 [facility] Glucose Glucometer (BldC) [M ass/Vol]Ordered By: Marc Carl on 08-22-2023 Glucose [Mass/Vol] 207 mg/dL 74-106 [facility] Comment on above: MANAGEMENT OF PATIEN T CARE PER NURSING PROTOCOL Hematocrit Auto (Bld) [Volum e fraction]Ordered By: Marc Carl on 08-22-2023 Hematocrit (Bld) [Volume fraction] 37.3 % 37-47 [facility] Ketones Test strip Ql (U)Ord ered By: Marc Carl on 08-22-2023 Ketones Ql (U) 5 mg/dl Negative [facility] Laboratory - Chemistry and C hemistry - challengeOrdered By: Marc Carl on 08-22-2023 ALP [Catalytic activity/Vol] 72 U/L 45-117 [facility] ALT [Catalytic activity/Vol] 87 U/L 13-56 [facility] CO2 [Moles/Vol] 27.0 mmol/L 21.0-32.0 [facility] Globulin (S) [Mass/Vol] 3.3 g/dL 2.2-4.2 [facility] Urea nitrogen/Creatinine [Mass ratio] 13.4 mg/mg 10-20 [facility] Laboratory - Hematology and Cell countsOrdered By: Marc Carl on 08-22-2023 Erythrocyte distribution width (RBC) [Entitic vol] 45.2 fL 35.1-43.9 [facility] Erythrocyte distribution width (RBC) [Ratio] 13.4 % 11.6-14.6 [facility] Immature granulocytes/100 WBC (Bld) 1.400 % 0.0-0.9 [facility] Comment on above: IG% - Immature Granu locytes (promyelocytes, myelocytes and metamyelocytes) > 1% indicates that a LEFT SHIFT is Present. MCH (RBC) [Entitic mass] 28.7 pg 27.0-32.0 [facility] Nucleated RBC/100 WBC (Bld) [[facility]] 0 % [facility] ([facility] [Mass/Vol]Or dered By: Marc Carl on 08-22-2023 MCHC (RBC) [Mass/Vol] 31.1 g/dL 32-36 [facility] Mucus LM Ql (Urine sed)Order ed By: Marc Carl on 08-22-2023 Mucus Ql (Urine sed) 0 SEEN /hpf [facility] Nitrite Test strip Ql (U)Ord ered By: Marc Carl on 08-22-2023 Nitrite Ql (U) Negative Negative [facility] No Panel InformationOrdered By: Marc Carl on 08-22-2023 Estimated Creatinine Clearance Calc 96.39 ml/min [facility] Estimated GFR (MDRD) Amer 95 mL/min >60 [facility] Comment on above: GFR Calc Estimated GFR (MDRD) Non-Af Amer 79 mL/min >60 [facility] Comment on above: Non- GFR Calc Platelets bldOrdered By: Filipe Carl on 08-22-2023 Platelets (Bld) [#/Vol] 206 10*3/uL 150-450 [facility] Protein Test strip Ql (U)Ord ered By: Marc Carl on 08-22-2023 Protein Ql (U) Negative Negative [facility] Serum or plasma albumin milli urement (mass/volume)Ordered By: Marc Carl on 08-22-2023 Albumin [Mass/Vol] 3.3 g/dL 3.2-5.0 [facility] Serum or plasma albumin/glob ulin mass ratioOrdered By: Marc Carl on 08-22-2023 Albumin/Globulin [Mass ratio] 1.0 {ratio} 0.9-2.4 [facility] Serum or plasma calcium milli urement (mass/volume)Ordered By: Marc Carl on 08-22-2023 Calcium [Mass/Vol] 8.4 mg/dL 8.5-10.1 [facility] Serum or plasma creatinine m easurement (mass/volume)Ordered By: Marc Carl on 08-22-2023 Creatinine [Mass/Vol] 0.90 mg/dL 0.55-1.02 [facility] Comment on above: The validity of the calculated GFR & GFRAA in patients over 70 years has not been determined. Clinical correlation is essential. Serum or plasma urea nitroge n measurement (mass/volume)Ordered By: Marc Carl on 08-22-2023 Urea nitrogen [Mass/Vol] 12 mg/dL 7-18 [facility] Squamous epithelial cells de tection in urine sediment by light microscopyOrdered By: Marc Carl on 08-22-2023 Epithelial cells.squamous LM Ql (Urine sed) 0-5 SEEN /hpf 5-10 [facility] Thin prep Papanicolaou smear with manual screeningOrdered By: Marc Carl on 08-22-2023 Thin prep Papanicolaou smear with manual screening 36 U/L 15-37 [facility] Thin prep Papanicolaou smear with manual screening 5 5-15 [facility] Urine blood detectionOrdered By: Marc Carl on 08-22-2023 RBC Ql (U) Negative Negative [facility] RBC Ql (U) 0 SEEN /hpf 0-5 [facility] Urine clarityOrdered By: Filipe Carl on 08-22-2023 Clarity (U) Clear Clear [facility] Urine color determinationOrd ered By: Marc Carl on 08-22-2023 Color (U) Yellow Yellow [facility] Urine glucose detectionOrder ed By: Marc Carl on 08-22-2023 Glucose Ql (U) 1000 mg/dl Normal [facility] Urine leukocyte esterase det ection by dipstickOrdered By: Marc Carl on 08-22-2023 Leukocyte esterase Test strip Ql (U) Negative Negative [facility] Urine pHOrdered By: Marc griffiths on 08-22-2023 pH (U) 8.0 [pH] 5.0 - 8.0 [facility] Urine sediment bacteria coun t by microscopy (number/high power field)Ordered By: Marc Carl on 08-22-2023 Bacteria LM.HPF (Urine sed) [#/Area] 0 /[HPF] None Seen [facility] Urine specific gravity measu rementOrdered By: Marc Carl on 08-22-2023 Specific gravity (U) [Rel density] 1.010 1.002-1.030 [facility] Urobilinogen Auto test strip Ql (U)Ordered By: Marc Meseret on 08-22-2023 Urobilinogen Ql (U) Normal mg/dl Normal [facility] Basophil percentageOrdered B y: Dangelo Encarnacion on 08-10-2023 Chloride [Moles/Vol] 109 mmol/L 98-107 [facility] Glucose [Mass/Vol] 195 mg/dL 74-106 [facility] Comment on above: Fasting Glucose resu lt greater than or equal to 126 mg/dL suggests DIABETES MELLITUS per A.D.A. criteria. Potassium [Moles/Vol] 3.7 mmol/L 3.5-5.1 [facility] Sodium [Moles/Vol] 139 mmol/L 136-145 [facility] WBC (Bld) [#/Vol] 8.5 10*3/uL 4.4-11.0 [facility] Blood erythrocytes count (nu mber/volume)Ordered By: Dangelo Encarnacion on 08-10-2023 RBC (Bld) [#/Vol] 4.50 10*6/uL 4.2-5.4 [facility] Blood hemoglobin measurement (mass/volume)Ordered By: Dangelo Encarnacion on 08-10-2023 Hemoglobin (Bld) [Mass/Vol] 13.0 g/dL 12.0-15.0 [facility] Blood platelet mean volumeOr dered By: Dangelo Encarnacion on 08-10-2023 Platelet mean volume (Bld) [Entitic vol] 11.8 fL 6.2-12.0 [facility] Determination of erythrocyte mean corpuscular volume (MCV)Ordered By: Dangelo Encarnacion on 08-10-2023 MCV (RBC) [Entitic vol] 88.2 fL 81-99 [facility] Glucose Glucometer (BldC) [M ass/Vol]Ordered By: Dangelo Encarnacion on 08-10-2023 Glucose [Mass/Vol] 208 mg/dL 74-106 [facility] Comment on above: MANAGEMENT OF PATIEN T CARE PER NURSING PROTOCOL Hematocrit Auto (Bld) [Volum e fraction]Ordered By: Dangelo Encarnacion on 08-10-2023 Hematocrit (Bld) [Volume fraction] 39.7 % 37-47 [facility] Laboratory - Chemistry and C hemistry - challengeOrdered By: Dangelo Encarnacion on 08-10-2023 CO2 [Moles/Vol] 20.0 mmol/L 21.0-32.0 [facility] Urea nitrogen/Creatinine [Mass ratio] 15.4 mg/mg 10-20 [facility] Laboratory - Hematology and Cell countsOrdered By: Dangelo Encarnacion on 08-10-2023 Erythrocyte distribution width (RBC) [Entitic vol] 42.0 fL 35.1-43.9 [facility] Erythrocyte distribution width (RBC) [Ratio] 12.9 % 11.6-14.6 [facility] MCH (RBC) [Entitic mass] 28.9 pg 27.0-32.0 [facility] MCHC Auto (RBC) [Mass/Vol]Or dered By: Dangelo Encarnacion on 08-10-2023 MCHC (RBC) [Mass/Vol] 32.7 g/dL 32-36 [facility] No Panel InformationOrdered By: Dangelo Encarnacion on 08-10-2023 Estimated Creatinine Clearance Calc 149.57 ml/min [facility] Estimated GFR (MDRD) Amer 157 mL/min >60 [facility] Comment on above: GFR Calc Estimated GFR (MDRD) Non-Af Amer 129 mL/min >60 [facility] Comment on above: Non- GFR Calc Platelets bldOrdered By: Lauren Encarnacion on 08-10-2023 Platelets (Bld) [#/Vol] 109 10*3/uL 150-450 [facility] Serum or plasma calcium milli urement (mass/volume)Ordered By: Dangelo Encarnacion on 08-10-2023 Calcium [Mass/Vol] 8.0 mg/dL 8.5-10.1 [facility] Serum or plasma creatinine m easurement (mass/volume)Ordered By: Dangelo Encarnacion on 08-10-2023 Creatinine [Mass/Vol] 0.58 mg/dL 0.55-1.02 [facility] Comment on above: The validity of the calculated GFR & GFRAA in patients over 70 years has not been determined. Clinical correlation is essential. Serum or plasma urea nitroge n measurement (mass/volume)Ordered By: Dangelo Encarnacion on 08-10-2023 Urea nitrogen [Mass/Vol] 9 mg/dL 7-18 [facility] Thin prep Papanicolaou smear with manual screeningOrdered By: Dangelo Encarnacion on 08-10-2023 Thin prep Papanicolaou smear with manual screening 10 5-15 [facility] Basophil percentageOrdered B y: Lul Singh on 08-07-2023 Lactate [Moles/Vol] 2.2 mmol/L 0.4-2.0 [facility] Comment on above: Critical Result(s) C alled at: 06:54:28 08/07/2023 by: Reid Rogers. To Jude Hopkins RN (ICU). Results read back by same. HCO3 (BldA) [Moles/Vol]Order ed By: Vamsi Lewis on 08-07-2023 HCO3 (Bld) [Moles/Vol] 12 mmol/L 22- [facility] Laboratory - Chemistry and C hemistry - challengeOrdered By: Vamsi Lewis on 08-07-2023 CO2 [Moles/Vol] 13 mmol/L 23-33 [facility] Magnesium [Mass/Vol] 1.8 mg/dL 1.6-2.6 [facility] Comment on above: Slight Hemolysis, Re sult may be falsely increased. No Panel InformationOrdered By: Vamsi Lewis on 08-07-2023 Bed Mix Venous Bld PCO2 at Pat Temp 28.0 mmHg 41-51 [facility] Blood Gas Oxygen Percent 21.0 [facility] Blood Gas Sample Site Not entered [facility] Blood Gas Specimen Type ISABELLE [facility] Oxygen Delivery Device Not entered [facility] Venous Blood Base Excess -16 mmol/L -1.0-3.5 [facility] PO2 venousOrdered By: Vamsi Lewis on 08-07-2023 Oxygen (BldV) [Partial pressure] 52 mm[Hg] 25-40 [facility] Respiratory pathogens detect ion panel by molecular detection methodOrdered By: Vamsi Lewis on 08-07-2023 Respiratory pathogens DNA and RNA panel DANIEL+probe (Resp) [facility] Respiratory pathogens DNA and RNA panel DANIEL+probe (Resp) [facility] Serum or plasma acetone milli urement (mass/volume)Ordered By: Vamsi Lewis on 08-07-2023 Acetone [Mass/Vol] MODERATE NEG [facility] Vital signsOrdered By: Vamsi Lewis on 08-07-2023 Oxygen saturation in Blood 81 % 50-70 [facility] Whole blood hemoglobin A1c/t otal hemoglobin ratio (mass fraction)Ordered By: Vmasi Lewis on 08-07-2023 HbA1c (Bld) [Mass fraction] 7.0 % 3.8-5.6 [facility] Comment on above: Normal < 5.7 % Predi abetic 5.7 - 6.4 % Diabetic >or= 6.5 % Please note range changes. pH measurementOrdered By: Miller morroangel Lewis on 08-07-2023 pH (Unsp spec) 7.24 [pH] 7.32-7.42 [facility] Absolute lymphocyte countOrd ered By: Lul Singh on 08-06-2023 Lymphocytes Auto (Unsp spec) [#/Vol] 0.42 10*3/uL 0.83-4.51 [facility] Absolute lymphocyte countOrd ered By: Juan Marquez on 08-06-2023 Lymphocytes Auto (Unsp spec) [#/Vol] 1.08 10*3/uL 0.83-4.51 [facility] Basophil percentageOrdered B y: Lul Singh on 08-06-2023 Basophils/100 WBC (Bld) 0.5 % 0-1 [facility] Chloride [Moles/Vol] 101 mmol/L 98-107 [facility] Eosinophils/100 WBC (Bld) 0.0 % 0-5 [facility] Glucose [Mass/Vol] 548 mg/dL 74-106 [facility] Comment on above: Critical Result(s) C alled at: 23:51:02 08/06/2023 by: Jay Hill. to Matthew (RN) (ED) Results read back by same.Glucose result greater than or equal to 200 mg/dLsuggests DIABETES MELLITUS per A.D.A. criteria. Lactate [Moles/Vol] 4.4 mmol/L 0.4-2.0 [facility] Comment on above: Critical Result(s) C alled at: 23:51:02 08/06/2023 by: Jay Hill. to Matthew AcuñaRN) (ED) Results read back by same. Neutrophils (Bld) [#/Vol] 18.8 10*3/uL 2.0-7.7 [facility] Neutrophils/100 WBC (Bld) 92.7 % 47-70 [facility] Potassium [Moles/Vol] 4.8 mmol/L 3.5-5.1 [facility] Sodium [Moles/Vol] 132 mmol/L 136-145 [facility] WBC (Bld) [#/Vol] 20.3 10*3/uL 4.4-11.0 [facility] Basophil percentage 0 SEEN /hpf 0-5 [facility] Basophil percentageOrdered B y: Juan Marquez on 08-06-2023 Basophils/100 WBC (Bld) 0.2 % 0-1 [facility] Bilirubin [Mass/Vol] 0.70 mg/dL 0.20-1.00 [facility] Comment on above: For patients on eltr ombopag therapy, use of Dimension [place] TBIL is not recommended. Chloride [Moles/Vol] 108 mmol/L 98-107 [facility] Eosinophils/100 WBC (Bld) 0.1 % 0-5 [facility] Glucose [Mass/Vol] 69 mg/dL 74-106 [facility] Neutrophils (Bld) [#/Vol] 19.2 10*3/uL 2.0-7.7 [facility] Neutrophils/100 WBC (Bld) 87.7 % 47-70 [facility] Potassium [Moles/Vol] 3.3 mmol/L 3.5-5.1 [facility] Protein [Mass/Vol] 7.5 g/dL 6.4-8.2 [facility] Sodium [Moles/Vol] 139 mmol/L 136-145 [facility] WBC (Bld) [#/Vol] 21.9 10*3/uL 4.4-11.0 [facility] Beta hCG serum qualOrdered B y: Juan Marquez on 08-06-2023 Beta HCG ( test) Ql Negative [facility] Bilirubin Test strip Ql (U)O rdered By: Lul Singh on 08-06-2023 Bilirubin Ql (U) Negative Negative [facility] Blood erythrocytes count (nu mber/volume)Ordered By: Lul Singh on 08-06-2023 RBC (Bld) [#/Vol] 4.35 10*6/uL 4.2-5.4 [facility] Blood erythrocytes count (nu mber/volume)Ordered By: Juan Marquez on 08-06-2023 RBC (Bld) [#/Vol] 5.03 10*6/uL 4.2-5.4 [facility] Blood hemoglobin measurement (mass/volume)Ordered By: Lul Singh on 08-06-2023 Hemoglobin (Bld) [Mass/Vol] 12.6 g/dL 12.0-15.0 [facility] Blood hemoglobin measurement (mass/volume)Ordered By: Juan Marquez on 08-06-2023 Hemoglobin (Bld) [Mass/Vol] 14.7 g/dL 12.0-15.0 [facility] Blood lymphocytes/100 leukoc ytesOrdered By: Lul Singh on 08-06-2023 Lymphocytes/100 WBC (Bld) 2.1 % [facility] Blood lymphocytes/100 leukoc ytesOrdered By: Juan Marquez on 08-06-2023 Lymphocytes/100 WBC (Bld) 4.9 % [facility] Blood manual differential co mment interpretation (narrative result)Ordered By: Lul Singh on 08-06-2023 Manual differential comment Faraz (Bld) [Interp] SCANNED [facility] Comment on above: LYMPHOPENIA PRESENT Blood monocytes/100 leukocyt esOrdered By: Lul Singh on 08-06-2023 Monocytes/100 WBC (Bld) 2.0 % [facility] Blood monocytes/100 leukocyt esOrdered By: Juan Marquez on 08-06-2023 Monocytes/100 WBC (Bld) 5.6 % [facility] Blood platelet mean volumeOr dered By: Lul Singh on 08-06-2023 Platelet mean volume (Bld) [Entitic vol] 13.8 fL 6.2-12.0 [facility] Blood platelet mean volumeOr dered By: Juan Marquez on 08-06-2023 Platelet mean volume (Bld) [Entitic vol] 12.1 fL 6.2-12.0 [facility] Determination of erythrocyte mean corpuscular volume (MCV)Ordered By: Lul Singh on 08-06-2023 MCV (RBC) [Entitic vol] 93.1 fL 81-99 [facility] Determination of erythrocyte mean corpuscular volume (MCV)Ordered By: Juan Marquez on 08-06-2023 MCV (RBC) [Entitic vol] 88.9 fL 81-99 [facility] Glucose Glucometer (BldC) [M ass/Vol]Ordered By: Juan Marquez on 08-06-2023 Glucose [Mass/Vol] 397 mg/dL 74-106 [facility] Comment on above: MANAGEMENT OF PATIEN T CARE PER NURSING PROTOCOL HCO3 (BldA) [Moles/Vol]Order ed By: Lul Singh on 08-06-2023 HCO3 (Bld) [Moles/Vol] 12 mmol/L 22-26 [facility] Hematocrit Auto (Bld) [Volum e fraction]Ordered By: Lul Singh on 08-06-2023 Hematocrit (Bld) [Volume fraction] 40.5 % 37-47 [facility] Hematocrit Auto (Bld) [Volum e fraction]Ordered By: Juan Marquez on 08-06-2023 Hematocrit (Bld) [Volume fraction] 44.7 % 37-47 [facility] Ketones Test strip Ql (U)Ord ered By: Lul Singh on 08-06-2023 Ketones Ql (U) 150 mg/dl Negative [facility] Comment on above: CRITICAL VALUE *HCRI TICAL VALUE VERIFIED. CALLED TO [id number]/11/23 0049 [place].RESULTS READ BACK BY SAME. Laboratory - Chemistry and C hemistry - challengeOrdered By: Lul Singh on 08-06-2023 CO2 [Moles/Vol] 13 mmol/L 23-33 [facility] CO2 [Moles/Vol] 14.0 mmol/L 21.0-32.0 [facility] Magnesium [Mass/Vol] 2.0 mg/dL 1.6-2.6 [facility] Urea nitrogen/Creatinine [Mass ratio] 16.1 mg/mg 10-20 [facility] Laboratory - Chemistry and C hemistry - challengeOrdered By: Juan Marquez on 08-06-2023 ALP [Catalytic activity/Vol] 94 U/L 45-117 [facility] ALT [Catalytic activity/Vol] 32 U/L 13-56 [facility] CO2 [Moles/Vol] 26.0 mmol/L 21.0-32.0 [facility] Globulin (S) [Mass/Vol] 3.6 g/dL 2.2-4.2 [facility] Lipase [Catalytic activity/Vol] 16 U/L 13-75 [facility] Comment on above: Please note:LIPASE r evised reference range effective 22. New Lipase methodology. Expected to produce lower values than the previous assay method. NEW Reference Range: 13 - 75 U/L Urea nitrogen/Creatinine [Mass ratio] 20.0 mg/mg 10-20 [facility] Laboratory - Hematology and Cell countsOrdered By: Lul Singh on 08-06-2023 Erythrocyte distribution width (RBC) [Entitic vol] 45.1 fL 35.1-43.9 [facility] Erythrocyte distribution width (RBC) [Ratio] 13.2 % 11.6-14.6 [facility] Immature granulocytes/100 WBC (Bld) 2.700 % 0.0-0.9 [facility] Comment on above: IG% - Immature Granu locytes (promyelocytes, myelocytes and metamyelocytes) > 1% indicates that a LEFT SHIFT is Present. MCH (RBC) [Entitic mass] 29.0 pg 27.0-32.0 [facility] Nucleated RBC/100 WBC (Bld) [Ratio] 0 % 0-5 [facility] Laboratory - Hematology and Cell countsOrdered By: Juan Marquez on 08-06-2023 Erythrocyte distribution width (RBC) [Entitic vol] 42.0 fL 35.1-43.9 [facility] Erythrocyte distribution width (RBC) [Ratio] 12.9 % 11.6-14.6 [facility] Immature granulocytes/100 WBC (Bld) 1.500 % 0.0-0.9 [facility] Comment on above: IG% - Immature Granu locytes (promyelocytes, myelocytes and metamyelocytes) > 1% indicates that a LEFT SHIFT is Present. MCH (RBC) [Entitic mass] 29.2 pg 27.0-32.0 [facility] Nucleated RBC/100 WBC (Bld) [Ratio] 0 % 0-5 [facility] MCHC Auto (RBC) [Mass/Vol]Or dered By: Lul Singh on 08-06-2023 MCHC (RBC) [Mass/Vol] 31.1 g/dL 32-36 [facility] Comment on above: Delta: 32.9 on 08/06 [facility] Auto (RBC) [Mass/Vol]Or dered By: Juan Marquez on 08-06-2023 MCHC (RBC) [Mass/Vol] 32.9 g/dL 32-36 [facility] Mucus LM Ql (Urine sed)Order ed By: Lul Singh on 08-06-2023 Mucus Ql (Urine sed) 0 SEEN /hpf [facility] Nitrite Test strip Ql (U)Ord ered By: Lul Singh on 08-06-2023 Nitrite Ql (U) Negative Negative [facility] No Panel InformationOrdered By: Lul Singh on 08-06-2023 Bed Mix Venous Bld PCO2 at Pat Temp 22.9 mmHg 41-51 [facility] Blood Gas Sample Site Not entered [facility] Blood Gas Specimen Type ISABELLE [facility] Oxygen Delivery Device Room Air [facility] Venous Blood Base Excess -14 mmol/L -1.0-3.5 [facility] Estimated Creatinine Clearance Calc 73.52 ml/min [facility] Estimated GFR (MDRD) Amer 70 mL/min >60 [facility] Comment on above: GFR Calc Estimated GFR (MDRD) Non-Af Amer 58 mL/min >60 [facility] Comment on above: Non- GFR Calc No Panel InformationOrdered By: Juan Marquez on 08-06-2023 Estimated Creatinine Clearance Calc 108.44 ml/min [facility] Estimated GFR (MDRD) Amer 109 mL/min >60 [facility] Comment on above: GFR Calc Estimated GFR (MDRD) Non-Af Amer 90 mL/min >60 [facility] Comment on above: Non- GFR Calc PO2 venousOrdered By: Lul Singh on 08-06-2023 Oxygen (BldV) [Partial pressure] 58 mm[Hg] 25-40 [facility] Platelets bldOrdered By: Lane Singh on 08-06-2023 Platelets (Bld) [#/Vol] 140 10*3/uL 150-450 [facility] Platelets bldOrdered By: Lauren Marquez on 08-06-2023 Platelets (Bld) [#/Vol] 199 10*3/uL 150-450 [facility] Protein Test strip Ql (U)Ord ered By: Lul Singh on 08-06-2023 Protein Ql (U) Negative Negative [facility] Serum or plasma acetone milli urement (mass/volume)Ordered By: Lul Singh on 08-06-2023 Acetone [Mass/Vol] SMALL NEG [facility] Serum or plasma albumin milli urement (mass/volume)Ordered By: Juan Marquez on 08-06-2023 Albumin [Mass/Vol] 3.9 g/dL 3.2-5.0 [facility] Serum or plasma albumin/glob ulin mass ratioOrdered By: Juan Marquez on 08-06-2023 Albumin/Globulin [Mass ratio] 1.1 {ratio} 0.9-2.4 [facility] Serum or plasma calcium milli urement (mass/volume)Ordered By: Lul Singh on 08-06-2023 Calcium [Mass/Vol] 9.1 mg/dL 8.5-10.1 [facility] Serum or plasma calcium milli urement (mass/volume)Ordered By: Juan Marquez on 08-06-2023 Calcium [Mass/Vol] 9.6 mg/dL 8.5-10.1 [facility] Serum or plasma creatinine m easurement (mass/volume)Ordered By: Lul Singh on 08-06-2023 Creatinine [Mass/Vol] 1.18 mg/dL 0.55-1.02 [facility] Comment on above: The validity of the calculated GFR & GFRAA in patients over 70 years has not been determined. Clinical correlation is essential. Serum or plasma creatinine m easurement (mass/volume)Ordered By: Juan Marquez on 08-06-2023 Creatinine [Mass/Vol] 0.80 mg/dL 0.55-1.02 [facility] Comment on above: The validity of the calculated GFR & GFRAA in patients over 70 years has not been determined. Clinical correlation is essential. Serum or plasma urea nitroge n measurement (mass/volume)Ordered By: Lul Singh on 08-06-2023 Urea nitrogen [Mass/Vol] 19 mg/dL - [facility] Serum or plasma urea nitroge n measurement (mass/volume)Ordered By: Juan Marquez on 08-06-2023 Urea nitrogen [Mass/Vol] 16 mg/dL - [facility] Squamous epithelial cells de tection in urine sediment by light microscopyOrdered By: Lul Singh on 08-06-2023 Epithelial cells.squamous LM Ql (Urine sed) 0-5 SEEN /hpf -10 [facility] Thin prep Papanicolaou smear with manual screeningOrdered By: Lul Singh on 08-06-2023 Thin prep Papanicolaou smear with manual screening 17 5-15 [facility] Thin prep Papanicolaou smear with manual screeningOrdered By: Juan Marquez on 08-06-2023 Thin prep Papanicolaou smear with manual screening 15 U/L 15-37 [facility] Thin prep Papanicolaou smear with manual screening 5 5-15 [facility] Urine blood detectionOrdered By: Lul Singh on 08-06-2023 RBC Ql (U) 10 /ul Negative [facility] RBC Ql (U) 0 SEEN /hpf 0-5 [facility] Urine clarityOrdered By: Lane Singh on 08-06-2023 Clarity (U) Clear Clear [facility] Urine color determinationOrd ered By: Lul Singh on 08-06-2023 Color (U) Yellow Yellow [facility] Urine glucose detectionOrder ed By: Lul Singh on 08-06-2023 Glucose Ql (U) 1000 mg/dl Normal [facility] Urine leukocyte esterase det ection by dipstickOrdered By: Lul Singh on 08-06-2023 Leukocyte esterase Test strip Ql (U) Negative Negative [facility] Urine pHOrdered By: Lul fontaine on 08-06-2023 pH (U) 5.0 [pH] 5.0 - 8.0 [facility] Urine sediment bacteria coun t by microscopy (number/high power field)Ordered By: Lul Singh on 08-06-2023 Bacteria LM.HPF (Urine sed) [#/Area] 0 /[HPF] None Seen [facility] Urine specific gravity measu rementOrdered By: Lul Singh on 08-06-2023 Specific gravity (U) [Rel density] 1.015 1.002-1.030 [facility] Urobilinogen Auto test strip Ql (U)Ordered By: Lul Singh on 08-06-2023 Urobilinogen Ql (U) Normal mg/dl Normal [facility] Vital signsOrdered By: Partha Singh on 08-06-2023 Oxygen saturation in Blood 89 % 50-70 [facility] pH measurementOrdered By: Yarelis Singh on 08-06-2023 pH (Unsp spec) 7.34 [pH] 7.32-7.42 [facility] CBC panel Auto (Bld)on 07-12 Erythrocyte distribution width (RBC) [Ratio] 13.3 % Normal 11.5-15.0 [facility] Comment on above: Order Comment: Speci men Type: BLOOD SPECIMEN Ordering Facility: [facility] Address: [address] [place], [place] [address] Performed By: #### 3 1201-7, 5195-3, 93509-3, SYPH #### [facility] CLIA [id number] [address] [place] [address] [place] Hematocrit (Bld) [Volume fraction] 44.2 % Normal 36.0-46.0 [facility] Comment on above: Order Comment: Speci men Type: BLOOD SPECIMEN Ordering Facility: [facility] Address: [address] [place], [place] [address] Performed By: #### 3 1201-7, 5195-3, 79176-6, SYPH #### [facility] CLIA [id number] [address] [place] [address] [place] Hemoglobin (Bld) [Mass/Vol] 14.8 g/dL Normal 11.5-15.5 [facility] Comment on above: Order Comment: Speci men Type: BLOOD SPECIMEN Ordering Facility: [facility] Address: [address] [address] Performed By: #### 3 1201-7, 5195-3, 56480-5, SYPH #### [facility] CLIA [id number] [address] [place] [address] [place] [facility] MCH (RBC) [Entitic mass] 29.4 pg Normal 26.0-34.0 [facility] Comment on above: Order Comment: Speci men Type: BLOOD SPECIMEN Ordering Facility: [facility] Address: [address] [address] Performed By: #### 3 1201-7, 5195-3, 07920-2, SYPH #### [facility] CLIA [id number] [address] [place] [address] [place] MCHC (RBC) [Mass/Vol] 33.5 g/dL Normal 30.5-36.0 [facility] Comment on above: Order Comment: Speci men Type: BLOOD SPECIMEN Ordering Facility: [facility] Address: [address] [place] [address] Performed By: #### 3 1201-7, 5195-3, 60992-0, SYPH #### [facility] CLIA [id number] [address] [place] [address] [place] MCV (RBC) [Entitic vol] 87.7 fL Normal 80.0-100.0 [facility] Comment on above: Order Comment: Speci men Type: BLOOD SPECIMEN Ordering Facility: [facility] Address: [address] [place] [address] Performed By: #### 3 1201-7, 5195-3, 83581-1, SYPH #### [facility] CLIA [id number] [address] [place] [address] [place] Nucleated RBC (Bld) [#/Vol] 10*3/uL Normal <0.01 [facility] Comment on above: Order Comment: Speci men Type: BLOOD SPECIMEN Ordering Facility: [facility] Address: [address] Performed By: #### 3 1201-7, 5195-3, 51200-0, SYPH #### [facility] CLIA [id number] [address] [place], [place] [id number] [place] Platelet mean volume (Bld) [Entitic vol] 13.3 fL High 9.0-12.7 [facility] Comment on above: Order Comment: Speci men Type: BLOOD SPECIMEN Ordering Facility: [facility] Address: [address] [address] Performed By: #### 3 1201-7, 5195-3, 43682-1, SYPH #### [facility] CLIA [id number] [address] [place] [address] [place] Platelets (Bld) [#/Vol] 111 10*3/uL Low 150-400 [facility] Comment on above: Order Comment: Speci men Type: BLOOD SPECIMEN Ordering Facility: [facility] Address: [address] [place] [address] Result Comment: No c lot detected. Performed By: #### 3 1201-7, 5195-3, 77030-5, SYPH #### [facility] CLIA [id number] [address] [place] [address] [place] RBC (Bld) [#/Vol] 5.04 10*6/uL Normal 3.90-5.20 [facility] Comment on above: Order Comment: Speci men Type: BLOOD SPECIMEN Ordering Facility: [facility] Address: [address] [address] Performed By: #### 3 1201-7, 5195-3, 83049-1, SYPH #### [facility] CLIA [id number] [address] [place] [address] [place] WBC (Bld) [#/Vol] 11.34 10*3/uL High 3.70-11.00 [facility] Comment on above: Order Comment: Speci men Type: BLOOD SPECIMEN Ordering Facility: [facility] Address: [address] [place] [address] [place] [address] Performed By: #### 3 1201-7, 5195-3, 05214-7, [facility] #### [facility] CLIA [id number] [facility] [address] [place] [id number] [place] CTA ABD/PEL W IVCONon 2022 CTA ABD/PEL W IVCON * * *Final Report* * * DATE OF EXAM: Jul 12 2023 10:08AM [facility] 0311 - CTA ABD/PEL W IVCON / [...] aorta without acute aortic pathology. Dictated by Clinical Audiologist: Dutch Aguilar DO I, Valdo Islas MD, have supervised the procedure and/or image review, and agree with the above interpretation and report. Fitness Leader: CONCHITA Transcribe Date/Time: Jul 12 2023 10:10A Dictated by : DUTCH AGUILAR DO This examination was interpreted and the report reviewed and electronically signed by: VALDO ISLAS MD on Jul 12 2023 2:59PM EST [id number] Normal [facility] CTA CHEST (GATED) WO/W IVCON on 07-12-2023 CTA CHEST (GATED) WO/W IVCON * * *Final Report* * * DATE OF EXAM: Jul 12 2023 10:08AM [facility] [facility] 0126 - CTA CHEST (GATED) WO/W IVCON [...] aorta without acute aortic pathology. Dictated by Clinical Audiologist: Dutch Aguilar DO I, Valdo Islas MD, have supervised the procedure and/or image review, and agree with the above interpretation and report. Fitness Leader: CONCHIAT Transcribe Date/Time: Jul 12 2023 10:10A Dictated by : DUTCH AGUILAR, This examination was interpreted and the report reviewed and electronically signed by: VALDO ISLAS MD on Jul 12 2023 2:59PM EST [id number] Normal [facility] Comprehensive metabolic 2000 panelon 07-12-2023 Albumin [Mass/Vol] 3.6 g/dL Normal 3.2-5.0 [facility] Comment on above: Order Comment: Speci men Type: BLOOD SPECIMENOrdering Facility: [facility] Address: [address] [place] [address] Performed By: #### 2 4323-8, ####[facility] LABORATORYCLIA [id number] [place] [id number] [place] ALP [Catalytic activity/Vol] 80 U/L Normal 45-117 [facility] Comment on above: Order Comment: Speci men Type: BLOOD SPECIMENOrdering Facility: [facility] Address: [address] [place] [address] Performed By: #### 2 4323-8, ####[facility] LABORATORYCLIA [id number] [place] [address] [place] ALT [Catalytic activity/Vol] 74 U/L High 13-61 [facility] Comment on above: Order Comment: Speci men Type: BLOOD SPECIMENOrdering Facility: [facility] Address: [address] [place] [address] Result Comment: Resu lts may be falsely depressed after the administration of Sulfasalazine and/or Sulfapyridine. Performed By: #### 2 4323-8, 96866-7 ####[facility] LABORATORYCLIA [id number] [place] [address] [place] Anion gap [Moles/Vol] 9 mmol/L Normal 5-16 [facility] Comment on above: Order Comment: Speci men Type: BLOOD SPECIMENOrdering Facility: [facility] Address: [address] [place] [address] Performed By: #### 2 4328, ####[facility] LABORATORYCLIA [id number] [place] [address] [place] AST [Catalytic activity/Vol] 44 U/L High 8-34 [facility] Comment on above: Order Comment: Speci men Type: BLOOD SPECIMENOrdering Facility: [facility] Address: [address] [place] [address] Result Comment: Resu lts may be falsely depressed after the administration of Sulfasalazine and/or Sulfapyridine. Performed By: #### 2 4328, ####[facility] LABORATORYCLIA [id number] [place] [address] [place] Bilirubin [Mass/Vol] 0.4 mg/dL Normal 0.2-1.0 [facility] Comment on above: Order Comment: Speci men Type: BLOOD SPECIMENOrdering Facility: [facility] Address: [address] [place] [address] Performed By: #### 2 4323-03, ####[facility] LABORATORYCLIA [id number] [place] [address] [place] Calcium [Mass/Vol] 9.2 mg/dL Normal 8.5-10.5 [facility] Comment on above: Order Comment: Speci men Type: BLOOD SPECIMENOrdering Facility: [facility] Address: [address] [place] [address] Performed By: #### 2 4328, ####[facility] LABORATORYCLIA [id number] [place] [address] [place] Chloride [Moles/Vol] 104 mmol/L Normal 98-107 [facility] Comment on above: Order Comment: Speci men Type: BLOOD SPECIMENOrdering Facility: [facility] Address: [address] [place] [address] Performed By: #### 2 4328, ####[facility] LABORATORYCLIA [id number] [place] [address] [place] CO2 [Moles/Vol] 26 mmol/L Normal 21-32 [facility] Comment on above: Order Comment: Belindai jeb Type: BLOOD SPECIMENOrdering Facility: [facility] Address: [address] [place] [address] Performed By: #### 2 4323-8, ####[facility] LABORATORYCLIA [id number] [place] [address] [place] Creatinine [Mass/Vol] 0.63 mg/dL Normal 0.51-0.95 [facility] Comment on above: Order Comment: Speci men Type: BLOOD SPECIMENOrdering Facility: [facility] Address: [address] [place] [address] Result Comment: Cleopatra ents receiving either N-Acetylcysteine (NAC) or Metamizole prior to venipuncture, may have falsely depressed results. Performed By: #### 2 4323-8, ####[facility] LABORATORYCLIA [id number] [address] Creatinine and Glomerular filtration rate.predicted panel (S/P/Bld) 124 mL/min/1.73m??? Normal >=60 [facility] Comment on above: Order Comment: Jon russ Type: BLOOD SPECIMENOrdering Facility: [facility] Address: [address] [place] [address] Result Comment: Janett mated Glomerular Filtration Rate [...] actual GFR. Performed By: #### 2 4323-8, ####[facility] LABORATORYCLIA [id number] [place] [address] [place] Glucose [Mass/Vol] 313 mg/dL High 70-100 [facility] Comment on above: Order Comment: Belindai jeb Type: BLOOD SPECIMENOrdering Facility: [facility] Address: [address] [place] [address] Result Comment: The [place] Diabetes Association (ADA) provides guidance for cutoff [...] Standards of Medical Care in Diabetes 2016, [place] [employer]. Diabetes Care. 2016.39(Suppl 1). Results may be falsely elevated after the administration of Sulfapyridine. Results may be falsely depressed after the administration of Sulfasalazine. Performed By: #### 2 4323-8, ####[facility] LABORATORYCLIA [id number] [place] [address] [place] Potassium [Moles/Vol] 4.0 mmol/L Normal 3.5-5.1 [facility] Comment on above: Order Comment: Speci men Type: BLOOD SPECIMENOrdering Facility: [facility] Address: [address] [place] [address] Performed By: #### 2 4323-8, ####[facility] LABORATORYCLIA [id number] [place] [address] [place] Protein [Mass/Vol] 6.3 g/dL Normal 6.0-8.5 [facility] Comment on above: Order Comment: Speci men Type: BLOOD SPECIMENOrdering Facility: [facility] Address: [address] [place] [address] Performed By: #### 2 4323, ####[facility] LABORATORYCLIA [id number] [place] [address] [place] Sodium [Moles/Vol] 139 mmol/L Normal 136-145 [facility] Comment on above: Order Comment: Speci men Type: BLOOD SPECIMENOrdering Facility: [facility] Address: [address] [place] [address] Performed By: #### 2 4323-8, ####[facility] LABORATORYCLIA [id number] [place] [address] [facility] Urea nitrogen [Mass/Vol] 16 mg/dL Normal 03-22 [facility] Comment on above: Order Comment: Speci men Type: BLOOD SPECIMENOrdering Facility: [facility] Address: [place] [address] Performed By: #### 2 4323-8, ####[facility] LABORATORYCLIA [id number] [place] [address] [facility] ECG COMPLETEon 07-12-2023 ECG COMPLETE Ventricular Rate : 9 6 BPM Atrial Rate : 96 BPM P-R Interval : 132 ms QRS Duration : 78 ms Q-T Interval : 370 ms QTC Calculation(Bazett) : 468 ms Calculated P Dana : 49 degrees Calculated R Dana : 95 degrees Calculated T Dana : 68 degrees Normal sinus rhythm with sinus arrhythmia Normal ECG When compared with ECG of 31-JAN-2023 19:42, Nonspecific T wave abnormality no longer evident in Inferior leads Nonspecific T wave abnormality, improved in Anterolateral leads Confirmed by ANASTASIA CHENG MD ([id number]) on 07/13/2023 7:59:29 PM NAME : KATHLEEN VILLA PID : [id number] : 1995 Gender : Female Race : ORD : [id number] Procedure Date : Jul 12 2023 03:45:28 Edit Date : Jul 13 2023 19:59:34 Diagnosis: Normal sinus rhythm with sinus arrhythmia Normal ECG When compared with ECG of 31-JAN-2023 19:42, Nonspecific T wave abnormality no longer evident in Inferior leads Nonspecific T wave abnormality, improved in Anterolateral leads Confirmed by ANASTASIA CHENG MD ([id number]) on 07/13/2023 7:59:29 PM Test Reason : STAT Location : 0 : ED A Overread By : ANASTASIA CHENG MD Edited By : ANASTASIA CHENG MD Referred By : , Acquired by : BRANDYN, Saad [facility] ED NOTEon 07-12-2023 ED NOTE HNO ID: [id number] Author: Vinayak Arevalo STIVEN Service: ? Author Type: Registered Nurse Type: ED Notes Filed: 07/12/2023 10:15 AM Note Text: Pt c/o CP after CT. Dr Cortes notified [facility] ED NOTE HNO ID: [id number] Author: Jhoana oHpe, STIVEN Service: ? Author Type: Registered Nurse Type: ED Notes Filed: 07/12/2023 6:05 AM Note Text: Failed IV/ Blood draw attempts x 2 by multiple staff members. Pt states she has a port and would like it accessed. [facility] ED PROV NOTEon 07-12-2023 ED PROV NOTE HNO ID: [id number] Author: Zohreh Cortes MD Service: ? Author [...] and time. (more content not included)... Normal [facility] HIGH SENSITIVITY TROPONIN Io n 07-12-2023 Tropinin I.cardiac panel High sensitivity method <2.5 Normal 0.0-34.0 [facility] Comment on above: Order Comment: Jon russ Type: BLOOD SPECIMEN Ordering Facility: [facility] Address: [address] [place] [address] Result Comment: This assay uses different antibodies than our current assay, and assays, even by the same culvert installer may recognize different regions of the antibody and cannot be used interchangeably. Expect results of this assay to run higher than the previous assay. Performed By: #### 3 1201-7, 5195-3, 27032-0, SYPH #### [facility] CLIA [id number] [facility] [place] [address] [place] Tropinin I.cardiac panel High sensitivity method 3.3 pg/mL Normal 0.0-34.0 [facility] Comment on above: Order Comment: Jon russ Type: BLOOD SPECIMEN Ordering Facility: [facility] Address: [address] [place], [place] [address] Result Comment: This assay uses different antibodies than our current assay, and assays, even by the same culvert installer may recognize different regions of the antibody and cannot be used interchangeably. Expect results of this assay to run higher than the previous assay. Performed By: #### 3 1201-7, 5195-3, 28874-2, SYPH #### [facility] CLIA [id number] [address] [place] [address] [place] Lipase SerPl-cCncon 07-12-20 23 Lipase [Catalytic activity/Vol] 23 U/L Normal 12-60 [facility] Comment on above: Order Comment: Speci men Type: BLOOD SPECIMENOrdering Facility: [facility] Address: [address] [place] [address] Performed By: #### 3 040-3 ####[facility] LABORATORYCLIA [id number] [place] [address] [place] MORPH WAM REFLEXon Platelets Estimate (Bld) [#/Vol] Decreased Normal [facility] Comment on above: Order Comment: Speci men Type: BLOOD SPECIMEN Ordering Facility: [facility] Address: [address] [place] [address] Performed By: #### 3 1201-7, 5195-3, 17627-3, SYPH #### [facility] CLIA [id number] [address] [place] [address] [place] RED CELL MORPH Reviewed: unremarkable Normal [facility] Comment on above: Order Comment: Speci men Type: BLOOD SPECIMEN Ordering Facility: [facility] Address: [address] [place] [address] Performed By: #### 3 1201-7, 5195-3, 53570-7, SYPH #### [facility] CLIA [id number] [address] [place] [address] [place] Magnesium SerPl-mCncon 07-12 Magnesium [Mass/Vol] 1.8 mg/dL Normal 1.6-2.6 [facility] Comment on above: Order Comment: Speci men Type: BLOOD SPECIMEN Ordering Facility: [facility] Address: [address] [place] [address] Performed By: #### 3 1201-7, 5195-3, 35761-8, SYPH #### [facility] CLIA [id number] [address] [place] [address] [place] XR CHEST 2V [...] significant acute radiographic abnormality of the chest. Fitness Leader: PSCB Transcribe Date/Time: Jul 12 2023 4:44A Dictated by : LETICIA HUTCHINS MD This examination was interpreted and the report reviewed and electronically signed by: LETICIA HUTCHINS MD on Jul 12 2023 4:45AM EST [id number] Normal [facility] Absolute lymphocyte countOrd ered By: Siddharth Herrera on 06-26-2023 Lymphocytes Auto (Unsp spec) [#/Vol] 0.96 10*3/uL 0.83-4.51 [facility] Basophil percentageOrdered B y: Siddharth Herrera on 06-26-2023 Basophils/100 WBC (Bld) 0.1 % 0-1 [facility] Bilirubin [Mass/Vol] 0.90 mg/dL 0.20-1.00 [facility] Comment on above: For patients on eltr ombopag therapy, use of Dimension [place] TBIL is not recommended. Chloride [Moles/Vol] 104 mmol/L 98-107 [facility] Eosinophils/100 WBC (Bld) 0.0 % 0-5 [facility] Glucose [Mass/Vol] 254 mg/dL 74-106 [facility] Comment on above: Glucose result great er than or equal to 200 mg/dLsuggests DIABETES MELLITUS per A.D.A. criteria. Neutrophils (Bld) [#/Vol] 12.6 10*3/uL 2.0-7.7 [facility] Neutrophils/100 WBC (Bld) 88.9 % 47-70 [facility] Potassium [Moles/Vol] 3.5 mmol/L 3.5-5.1 [facility] Protein [Mass/Vol] 6.8 g/dL 6.4-8.2 [facility] Sodium [Moles/Vol] 137 mmol/L 136-145 [facility] WBC (Bld) [#/Vol] 14.2 10*3/uL 4.4-11.0 [facility] Blood erythrocytes count (nu mber/volume)Ordered By: Siddharth Herrera on 06-26-2023 RBC (Bld) [#/Vol] 4.21 10*6/uL 4.2-5.4 [facility] Blood hemoglobin measurement (mass/volume)Ordered By: Siddharth Herrera on 06-26-2023 Hemoglobin (Bld) [Mass/Vol] 12.3 g/dL 12.0-15.0 [facility] Blood lymphocytes/100 leukoc ytesOrdered By: Siddharth Herrera on 06-26-2023 Lymphocytes/100 WBC (Bld) 6.8 % 19-41 [facility] Blood monocytes/100 leukocyt esOrdered By: Siddharth Herrera on 06-26-2023 Monocytes/100 WBC (Bld) 3.4 % 0-10 [facility] Blood platelet mean volumeOr dered By: Siddharth Herrera on 06-26-2023 Platelet mean volume (Bld) [Entitic vol] 12.7 fL 6.2-12.0 [facility] Determination of erythrocyte mean corpuscular volume (MCV)Ordered By: Siddharth Herrera on 06-26-2023 MCV (RBC) [Entitic vol] 90.5 fL 81-99 [facility] Hematocrit Auto (Bld) [Volum e fraction]Ordered By: Siddharth Herrera on 06-26-2023 Hematocrit (Bld) [Volume fraction] 38.1 % 37-47 [facility] Laboratory - Chemistry and C hemistry - challengeOrdered By: Siddharth Herrera on 06-26-2023 ALP [Catalytic activity/Vol] 86 U/L 45-117 [facility] ALT [Catalytic activity/Vol] 69 U/L 13-56 [facility] CO2 [Moles/Vol] 21.0 mmol/L 21.0-32.0 [facility] Globulin (S) [Mass/Vol] 3.2 g/dL 2.2-4.2 [facility] Lipase [Catalytic activity/Vol] U/L 13-75 [facility] Comment on above: Please note:LIPASE r evised reference range effective 22. New Lipase methodology. Expected to produce lower values than the previous assay method. NEW Reference Range: 13 - 75 U/L Urea nitrogen/Creatinine [Mass ratio] 18.9 mg/mg 10-20 [facility] Laboratory - Hematology and Cell countsOrdered By: Siddharth Herrera on 06-26-2023 Erythrocyte distribution width (RBC) [Entitic vol] 42.9 fL 35.1-43.9 [facility] Erythrocyte distribution width (RBC) [Ratio] 13.0 % 11.6-14.6 [facility] Immature granulocytes/100 WBC (Bld) 0.800 % 0.0-0.9 [facility] Comment on above: IG% - Immature Granu locytes (promyelocytes, myelocytes and metamyelocytes) > 1% indicates that a LEFT SHIFT is Present. MCH (RBC) [Entitic mass] 29.2 pg 27.0-32.0 [facility] Nucleated RBC/100 WBC (Bld) [Ratio] 0 % 0-5 [facility] MCHC Auto (RBC) [Mass/Vol]Or dered By: Siddharth Herrera on 06-26-2023 MCHC (RBC) [Mass/Vol] 32.3 g/dL 32-36 [facility] No Panel InformationOrdered By: Siddharth Herrera on 06-26-2023 Estimated Creatinine Clearance Calc 102.98 ml/min [facility] Estimated GFR (MDRD) Amer 102 mL/min >60 [facility] Comment on above: GFR Calc Estimated GFR (MDRD) Non-Af Amer 84 mL/min >60 [facility] Comment on above: Non- GFR Calc Platelets bldOrdered By: Margarita Herrera on 06-26-2023 Platelets (Bld) [#/Vol] 160 10*3/uL 150-450 [facility] Serum or plasma albumin milli urement (mass/volume)Ordered By: Siddharth Herrera on 06-26-2023 Albumin [Mass/Vol] 3.6 g/dL 3.2-5.0 [facility] Serum or plasma albumin/glob ulin mass ratioOrdered By: Siddharth Herrera on 06-26-2023 Albumin/Globulin [Mass ratio] 1.1 {ratio} 0.9-2.4 [facility] Serum or plasma calcium milli urement (mass/volume)Ordered By: Siddharth Herrera on 06-26-2023 Calcium [Mass/Vol] 8.8 mg/dL 8.5-10.1 [facility] Serum or plasma creatinine m easurement (mass/volume)Ordered By: Siddharth Herrera on 06-26-2023 Creatinine [Mass/Vol] 0.85 mg/dL 0.55-1.02 [facility] Comment on above: The validity of the calculated GFR & GFRAA in patients over 70 years has not been determined. Clinical correlation is essential. Serum or plasma urea nitroge n measurement (mass/volume)Ordered By: Siddharth Herrera on 06-26-2023 Urea nitrogen [Mass/Vol] 16 mg/dL 7-18 [facility] Thin prep Papanicolaou smear with manual screeningOrdered By: Siddharth Herrera on 06-26-2023 Thin prep Papanicolaou smear with manual screening 35 U/L 15-37 [facility] Thin prep Papanicolaou smear with manual screening 12 5-15 [facility] Absolute lymphocyte countOrd ered By: Greg Philip on 06-25-2023 Lymphocytes Auto (Unsp spec) [#/Vol] 2.12 10*3/uL 0.83-4.51 [facility] Basophil percentageOrdered B y: Greg Philip on 06-25-2023 Basophils/100 WBC (Bld) 0.4 % 0-1 [facility] Bilirubin [Mass/Vol] 0.60 mg/dL 0.20-1.[address] [facility] Comment on above: For patients on eltr ombopag therapy, use of Dimension [place] TBIL is not recommended. Chloride [Moles/Vol] 109 mmol/L 98-107 [facility] Eosinophils/100 WBC (Bld) 0.4 % 0-5 [facility] Glucose [Mass/Vol] 283 mg/dL 74-106 [facility] Comment on above: Glucose result great er than or equal to 200 mg/dLsuggests DIABETES MELLITUS per A.D.A. criteria. Neutrophils (Bld) [#/Vol] 9.2 10*3/uL 2.0-7.7 [facility] Neutrophils/100 WBC (Bld) 75.9 % 47-70 [facility] Potassium [Moles/Vol] 3.8 mmol/L 3.5-5.1 [facility] Protein [Mass/Vol] 6.9 g/dL 6.4-8.2 [facility] Sodium [Moles/Vol] 140 mmol/L 136-145 [facility] WBC (Bld) [#/Vol] 12.1 10*3/uL 4.4-11.0 [facility] Beta hCG serum qualOrdered B y: Greg Philip on 06-25-2023 Beta HCG ( test) Ql Negative [facility] Blood erythrocytes count (nu mber/volume)Ordered By: Greg Philip on 06-25-2023 RBC (Bld) [#/Vol] 4.56 10*6/uL 4.2-5.4 [facility] Blood hemoglobin measurement (mass/volume)Ordered By: Greg Philip on 06-25-2023 Hemoglobin (Bld) [Mass/Vol] 13.5 g/dL 12.0-15.0 [facility] Blood lymphocytes/100 leukoc ytesOrdered By: Greg Philip on 06-25-2023 Lymphocytes/100 WBC (Bld) 17.5 % 19-41 [facility] Blood monocytes/100 leukocyt esOrdered By: Greg Philip on 06-25-2023 Monocytes/100 WBC (Bld) 5.0 % 0-10 [facility] Blood platelet mean volumeOr dered By: Greg Philip on 06-25-2023 Platelet mean volume (Bld) [Entitic vol] 12.9 fL 6.2-12.0 [facility] Determination of erythrocyte mean corpuscular volume (MCV)Ordered By: Greg Philip on 06-25-2023 MCV (RBC) [Entitic vol] 89.5 fL 81-99 [facility] Hematocrit Auto (Bld) [Volum e fraction]Ordered By: Greg Philip on 06-25-2023 Hematocrit (Bld) [Volume fraction] 40.8 % 37-47 [facility] Laboratory - Chemistry and C hemistry - challengeOrdered By: Gregrigoberto Philip on 06-25-2023 ALP [Catalytic activity/Vol] 85 U/L 45-117 [facility] ALT [Catalytic activity/Vol] 70 U/L 13-56 [facility] CO2 [Moles/Vol] 22.0 mmol/L 21.0-32.0 [facility] Globulin (S) [Mass/Vol] 3.2 g/dL 2.2-4.2 [facility] Lipase [Catalytic activity/Vol] 16 U/L -75 [facility] Comment on above: Please note:LIPASE r evised reference range effective 22. New Lipase methodology. Expected to produce lower values than the previous assay method. NEW Reference Range: 13 - 75 U/L Urea nitrogen/Creatinine [Mass ratio] 17.3 mg/mg 10-20 [facility] Laboratory - Hematology and Cell countsOrdered By: Greg Philip on 06-25-2023 Erythrocyte distribution width (RBC) [Entitic vol] 42.5 fL 35.1-43.9 [facility] Erythrocyte distribution width (RBC) [Ratio] 13.1 % 11.6-14.6 [facility] Immature granulocytes/100 WBC (Bld) 0.800 % 0.0-0.9 [facility] Comment on above: IG% - Immature Granu locytes (promyelocytes, myelocytes and metamyelocytes) > 1% indicates that a LEFT SHIFT is Present. MCH (RBC) [Entitic mass] 29.6 pg 27.0-32.0 [facility] Nucleated RBC/100 WBC (Bld) [Ratio] 0 % 0-5 [facility] MCHC Auto (RBC) [Mass/Vol]Or dered By: Greg Philip on 06-25-2023 MCHC (RBC) [Mass/Vol] 33.1 g/dL 32-36 [facility] No Panel InformationOrdered By: Greg Philip on 06-25-2023 Estimated Creatinine Clearance Calc 104.31 ml/min [facility] Estimated GFR (MDRD) Amer 108 mL/min >60 [facility] Comment on above: GFR Calc Estimated GFR (MDRD) Non-Af Amer 89 mL/min >60 [facility] Comment on above: Non- GFR Calc Platelets bldOrdered By: Allyn Philip on 06-25-2023 Platelets (Bld) [#/Vol] 180 10*3/uL 150-450 [facility] Serum or plasma albumin milli urement (mass/volume)Ordered By: Greg Philip on 06-25-2023 Albumin [Mass/Vol] 3.7 g/dL 3.2-5.0 [facility] Serum or plasma albumin/glob ulin mass ratioOrdered By: Greg Philip on 06-25-2023 Albumin/Globulin [Mass ratio] 1.2 {ratio} 0.9-2.4 [facility] Serum or plasma calcium milli urement (mass/volume)Ordered By: Greg Philip on 06-25-2023 Calcium [Mass/Vol] 9.1 mg/dL 8.5-10.1 [facility] Serum or plasma creatinine m easurement (mass/volume)Ordered By: Greg Philip on 06-25-2023 Creatinine [Mass/Vol] 0.81 mg/dL 0.55-1.02 [facility] Comment on above: The validity of the calculated GFR & GFRAA in patients over 70 years has not been determined. Clinical correlation is essential. Serum or plasma urea nitroge n measurement (mass/volume)Ordered By: Greg Philip on 06-25-2023 Urea nitrogen [Mass/Vol] 14 mg/dL 7-18 [facility] Thin prep Papanicolaou smear with manual screeningOrdered By: Greg Philip on 06-25-2023 Thin prep Papanicolaou smear with manual screening 39 U/L 15-37 [facility] Thin prep Papanicolaou smear with manual screening 9 5-15 [facility] HEMOGLOBIN A1C (POC)on 05-31 HbA1c (Bld) [Mass fraction] 7.2 % Abnormal 4.2 - 5.6 % [facility] Dipak 05-23-2023 CNPN Telephone (FAMPOR) KATHLEEN VILLA ([id number]) 1995 F T Date Time Provider Department [...] Encounter Status:Closed by EUNICE MCDONALD on 05/23/23 [facility] Basophil percentageOrdered B y: Lin Johansen on 05-03-2023 Chloride [Moles/Vol] 111 mmol/L 98-107 [facility] Glucose [Mass/Vol] 230 mg/dL 74-106 [facility] Comment on above: Glucose result great er than or equal to 200 mg/dLsuggests DIABETES MELLITUS per A.D.A. criteria. Potassium [Moles/Vol] 3.7 mmol/L 3.5-5.1 [facility] Sodium [Moles/Vol] 142 mmol/L 136-145 [facility] Beta hCG serum qualOrdered B y: Marc Carl on 05-03-2023 Beta HCG ( test) Ql Negative [facility] Laboratory - Chemistry and C hemistry - challengeOrdered By: Lin Johansen on 05-03-2023 CO2 [Moles/Vol] 22.0 mmol/L 21.0-32.0 [facility] Urea nitrogen/Creatinine [Mass ratio] 12.8 mg/mg 10- [facility] No Panel InformationOrdered By: Lin Johansen on 05-03-2023 Estimated Creatinine Clearance Calc 141.18 ml/min [facility] Estimated GFR (MDRD) Amer 145 mL/min >60 [facility] Comment on above: GFR Calc Estimated GFR (MDRD) Non-Af Amer 120 mL/min >60 [facility] Comment on above: Non- GFR Calc Serum or plasma acetone milli urement (mass/volume)Ordered By: Marc Carl on 05-03-2023 Acetone [Mass/Vol] MODERATE NEG [facility] Serum or plasma calcium milli urement (mass/volume)Ordered By: Lin Johansen on 05-03-2023 Calcium [Mass/Vol] 7.7 mg/dL 8.5-10.1 [facility] Serum or plasma creatinine m easurement (mass/volume)Ordered By: Lin Johansen on 05-03-2023 Creatinine [Mass/Vol] 0.62 mg/dL 0.55-1.02 [facility] Comment on above: The validity of the calculated GFR & GFRAA in patients over 70 years has not been determined. Clinical correlation is essential. Serum or plasma urea nitroge n measurement (mass/volume)Ordered By: Lin Johansen on 05-03-2023 Urea nitrogen [Mass/Vol] 8 mg/dL - [facility] Thin prep Papanicolaou smear with manual screeningOrdered By: Lin Johanesn on 05-03-2023 Thin prep Papanicolaou smear with manual screening 9 5-15 [facility] Absolute lymphocyte countOrd ered By: Ileana Lobo on 04-29-2023 Lymphocytes Auto (Unsp spec) [#/Vol] 2.07 10*3/uL 0.83-4.51 [facility] Basophil percentageOrdered B y: Ileana Lobo on 04-29-2023 Basophils/100 WBC (Bld) 0.3 % 0-1 [facility] Chloride [Moles/Vol] 108 mmol/L 98-107 [facility] Eosinophils/100 WBC (Bld) 0.0 % 0-5 [facility] Glucose [Mass/Vol] 258 mg/dL 74-106 [facility] Comment on above: Glucose result great er than or equal to 200 mg/dLsuggests DIABETES MELLITUS per A.D.A. criteria. Neutrophils (Bld) [#/Vol] 11.5 10*3/uL 2.0-7.7 [facility] Neutrophils/100 WBC (Bld) 79.4 % 47-70 [facility] Potassium [Moles/Vol] 4.5 mmol/L 3.5-5.1 [facility] Sodium [Moles/Vol] 136 mmol/L 136-145 [facility] WBC (Bld) [#/Vol] 14.4 10*3/uL 4.4-11.0 [facility] Blood erythrocytes count (nu mber/volume)Ordered By: Ileana Lobo on 04-29-2023 RBC (Bld) [#/Vol] 3.86 10*6/uL 4.2-5.4 [facility] Blood hemoglobin measurement (mass/volume)Ordered By: Ileana Lobo on 04-29-2023 Hemoglobin (Bld) [Mass/Vol] 11.5 g/dL 12.0-15.0 [facility] Blood lymphocytes/100 leukoc ytesOrdered By: Ileana Lobo on 04-29-2023 Lymphocytes/100 WBC (Bld) 14.3 % 19-41 [facility] Blood monocytes/100 leukocyt esOrdered By: Ileana Lobo on 04-29-2023 Monocytes/100 WBC (Bld) 4.9 % 0-10 [facility] Blood platelet mean volumeOr dered By: Ileana Lobo on 04-29-2023 Platelet mean volume (Bld) [Entitic vol] 11.6 fL 6.2-12.0 [facility] Determination of erythrocyte mean corpuscular volume (MCV)Ordered By: Ileana Lobo on 04-29-2023 MCV (RBC) [Entitic vol] 91.2 fL 81-99 [facility] Glucose Glucometer (BldC) [M ass/Vol]Ordered By: Ileana Lobo on 04-29-2023 Glucose [Mass/Vol] 210 mg/dL 74-106 [facility] Comment on above: MANAGEMENT OF PATIEN T CARE PER NURSING PROTOCOL Hematocrit Auto (Bld) [Volum e fraction]Ordered By: Ileana Lobo on 04-29-2023 Hematocrit (Bld) [Volume fraction] 35.2 % 37-47 [facility] Laboratory - Chemistry and C hemistry - challengeOrdered By: Ileana Lobo on 04-29-2023 CO2 [Moles/Vol] 19.0 mmol/L 21.0-32.0 [facility] Urea nitrogen/Creatinine [Mass ratio] 11.6 mg/mg 10-20 [facility] Laboratory - Hematology and Cell countsOrdered By: Ileana Lobo on 04-29-2023 Erythrocyte distribution width (RBC) [Entitic vol] 47.9 fL 35.1-43.9 [facility] Erythrocyte distribution width (RBC) [Ratio] 14.3 % 11.6-14.6 [facility] Immature granulocytes/100 WBC (Bld) 1.100 % 0.0-0.9 [facility] Comment on above: IG% - Immature Granu locytes (promyelocytes, myelocytes and metamyelocytes) > 1% indicates that a LEFT SHIFT is Present. MCH (RBC) [Entitic mass] 29.8 pg 27.0-32.0 [facility] Nucleated RBC/100 WBC (Bld) [Ratio] 0 % 0-5 [facility] MCHC Auto (RBC) [Mass/Vol]Or dered By: Ileana Lobo on 04-29-2023 MCHC (RBC) [Mass/Vol] 32.7 g/dL 32-36 [facility] No Panel InformationOrdered By: Ileana Lobo on 04-29-2023 Estimated Creatinine Clearance Calc 112.22 ml/min [facility] Estimated GFR (MDRD) Amer 113 mL/min >60 [facility] Comment on above: GFR Calc Estimated GFR (MDRD) Non-Af Amer 93 mL/min >60 [facility] Comment on above: Non- GFR Calc Platelets bldOrdered By: Jes Lobo on 04-29-2023 Platelets (Bld) [#/Vol] 143 10*3/uL 150-450 [facility] Serum or plasma calcium milli urement (mass/volume)Ordered By: Ileana Lobo on 04-29-2023 Calcium [Mass/Vol] 8.0 mg/dL 8.5-10.1 [facility] Serum or plasma creatinine m easurement (mass/volume)Ordered By: Ileana Lobo on 04-29-2023 Creatinine [Mass/Vol] 0.78 mg/dL 0.55-1.02 [facility] Comment on above: The validity of the calculated GFR & GFRAA in patients over 70 years has not been determined. Clinical correlation is essential. Serum or plasma urea nitroge n measurement (mass/volume)Ordered By: Ileana Lobo on 04-29-2023 Urea nitrogen [Mass/Vol] 9 mg/dL 7-18 [facility] Thin prep Papanicolaou smear with manual screeningOrdered By: Ileana Lobo on 04-29-2023 Thin prep Papanicolaou smear with manual screening 9 5-15 [facility] Assessment of wrist artery p atency prior to arterial punctureOrdered By: Daivd Smith on 04-28-2023 Arterial patency Wrist artery --pre arterial puncture Positive [facility] Base excessOrdered By: Demond Smith on 04-28-2023 Base excess Calc (BldV) [Moles/Vol] -6 mmol/L -2-2 [facility] Basophil percentageOrdered B y: Ileana Lobo on 04-28-2023 Basophil percentage 0-5 SEEN /hpf 0-5 [facility] Basophil percentageOrdered B y: David Smith on 04-28-2023 Basophil percentage 18.2 mmol/L 22-26 [facility] Basophils/100 WBC (Bld) 99 % 95-99 [facility] Bilirubin Test strip Ql (U)O rdered By: Ileana Lobo on 04-28-2023 Bilirubin Ql (U) Negative Negative [facility] CO2 (BldA) [Partial pressure ]Ordered By: David Smith on 04-28-2023 CO2 (Bld) [Partial pressure] 26.7 mm[Hg] 35-45 [facility] Culture, urineOrdered By: Jocelyne Lobo on 04-28-2023 Bacteria identified Cx Nom (U) Positive [facility] Bacteria identified Cx Nom (U) Positive [facility] Ketones Test strip Ql (U)Ord ered By: Ileana Lobo on 04-28-2023 Ketones Ql (U) 150 mg/dl Negative [facility] Comment on above: CRITICAL VALUE *HCRI TICAL VALUE VERIFIED. CALLED TO [id number] Emily Felix.RESULTS READ BACK BY SAME . Laboratory - Chemistry and C hemistry - challengeOrdered By: Ileana Lobo on 04-28-2023 Magnesium [Mass/Vol] 2.1 mg/dL 1.6-2.6 [facility] Laboratory - Drug toxicology Ordered By: Ileana Lobo on 04-28-2023 Amphetamines Ql (U) Negative <1000 ng/mL [facility] Benzodiazepines Ql (U) Negative < 200 ng/mL [facility] Cannabinoids Screen Ql (U) Positive < 50 ng/mL [facility] Cocaine Ql (U) Negative < 300 ng/mL [facility] Opiates Ql (U) Negative < 300 ng/mL [facility] Mucus LM Ql (Urine sed)Order ed By: Ileana Lobo on 04-28-2023 Mucus Ql (Urine sed) 0 SEEN /hpf [facility] Nitrite Test strip Ql (U)Ord ered By: Ileana Lobo on 04-28-2023 Nitrite Ql (U) Negative Negative [facility] No Panel InformationOrdered By: Ileana Lobo on 04-28-2023 MDMA (Ecstasy) Screen Negative < 500 ng/mL [facility] Urine Barbiturates Screen Negative < 200 ng/mL [facility] Urine Drug Screen Comment [facility] Comment on above: CONFIRMATORY TESTING FOR [...] Methadone Screen Negative < 300 ng/mL [facility] No Panel InformationOrdered By: David Smith on 04-28-2023 Blood Gas Sample Site R Radial [facility] Blood Gas Specimen Type ART [facility] Blood Gas Total CO2 19 mmol/L [facility] Oxygen (BldA) [Partial press ure]Ordered By: David Smith on 04-28-2023 Oxygen (Bld) [Partial pressure] 107 mmHG 75-100 [facility] Protein Test strip Ql (U)Ord ered By: Ileana Lobo on 04-28-2023 Protein Ql (U) Negative Negative [facility] Serum or plasma acetone milli urement (mass/volume)Ordered By: Vincenzo Castañeda on 04-28-2023 Acetone [Mass/Vol] SMALL NEG [facility] Serum procalcitonin measurem entOrdered By: Ileana Lobo on 04-28-2023 Procalcitonin [Mass/Vol] 0.08 ng/mL 0.00-0.09 [facility] Comment on above: A procalcitonin (PCT [...] Ql (Urine sed) 0 SEEN /hpf 5-10 [facility] Urine blood detectionOrdered By: Ileana Lobo on 04-28-2023 RBC Ql (U) Negative Negative [facility] RBC Ql (U) 0 SEEN /hpf 0-5 [facility] Urine clarityOrdered By: Jes Lobo on 04-28-2023 Clarity (U) Clear Clear [facility] Urine color determinationOrd ered By: Ileaan Lobo on 04-28-2023 Color (U) Straw Yellow [facility] Urine glucose detectionOrder ed By: Ileana Lobo on 04-28-2023 Glucose Ql (U) 100 mg/dl Normal [facility] Urine leukocyte esterase det ection by dipstickOrdered By: Ileana Lobo on 04-28-2023 Leukocyte esterase Test strip Ql (U) 25 /ul Negative [facility] Urine pHOrdered By: Ileana mayorga on 04-28-2023 pH (U) 5.0 [pH] 5.0 - 8.0 [facility] Urine phencyclidine (PCP) de tectionOrdered By: Ileana Lobo on 04-28-2023 Phencyclidine Ql (U) Negative < 25 ng/mL [facility] Urine sediment bacteria coun t by microscopy (number/high power field)Ordered By: Ileana Lobo on 04-28-2023 Bacteria LM.HPF (Urine sed) [#/Area] 0 /[HPF] None Seen [facility] Urine specific gravity measu rementOrdered By: Ileana Lobo on 04-28-2023 Specific gravity (U) [Rel density] 1.010 1.002-1.030 [facility] Urobilinogen Auto test strip Ql (U)Ordered By: Ileana Lobo on 04-28-2023 Urobilinogen Ql (U) Normal mg/dl Normal [facility] pH measurementOrdered By: Gloria Smith on 04-28-2023 pH (Unsp spec) 7.44 [pH] 7.35-7.45 [facility] Absolute lymphocyte countOrd ered By: Lin Johansen on 04-27-2023 Lymphocytes Auto (Unsp spec) [#/Vol] 0.67 10*3/uL 0.83-4.51 [facility] Basophil percentageOrdered B y: Lin Johansen on 04-27-2023 Basophils/100 WBC (Bld) 0.2 % 0-1 [facility] Bilirubin [Mass/Vol] 1.00 mg/dL 0.20-1.00 [facility] Comment on above: For patients on eltr ombopag therapy, use of Dimension [place] TBIL is not recommended. Chloride [Moles/Vol] 102 mmol/L 98-107 [facility] Eosinophils/100 WBC (Bld) 0.0 % 0-5 [facility] Glucose [Mass/Vol] 313 mg/dL 74-106 [facility] Comment on above: Glucose result great er than or equal to 200 mg/dLsuggests DIABETES MELLITUS per A.D.A. criteria. Neutrophils (Bld) [#/Vol] 19.6 10*3/uL 2.0-7.7 [facility] Neutrophils/100 WBC (Bld) 93.9 % 47-70 [facility] Potassium [Moles/Vol] 5.1 mmol/L 3.5-5.1 [facility] Protein [Mass/Vol] 7.5 g/dL 6.4-8.2 [facility] Sodium [Moles/Vol] 130 mmol/L 136-145 [facility] WBC (Bld) [#/Vol] 20.9 10*3/uL 4.4-11.0 [facility] Blood erythrocytes count (nu mber/volume)Ordered By: Lin Johansen on 04-27-2023 RBC (Bld) [#/Vol] 4.65 10*6/uL 4.2-5.4 [facility] Blood hemoglobin measurement (mass/volume)Ordered By: Lin Johansen on 04-27-2023 Hemoglobin (Bld) [Mass/Vol] 13.5 g/dL 12.0-15.0 [facility] Blood lymphocytes/100 leukoc ytesOrdered By: Lin Johansen on 04-27-2023 Lymphocytes/100 WBC (Bld) 3.2 % 19-41 [facility] Blood monocytes/100 leukocyt esOrdered By: Lin Johansen on 04-27-2023 Monocytes/100 WBC (Bld) 0.9 % 0-10 [facility] Blood platelet mean volumeOr dered By: Lin Johansen on 04-27-2023 Platelet mean volume (Bld) [Entitic vol] 12.5 fL 6.2-12.0 [facility] Determination of erythrocyte mean corpuscular volume (MCV)Ordered By: Lin Johansen on 04-27-2023 MCV (RBC) [Entitic vol] 90.3 fL 81-99 [facility] Direct bilirubinOrdered By: Lin Johansen on 04-27-2023 Bilirubin.direct [Mass/Vol] 0.30 mg/dL 0.00-0.30 [facility] Glucose Glucometer (dC) [M ass/Vol]Ordered By: Lin Johansen on 04-27-2023 Glucose [Mass/Vol] 206 mg/dL 74-106 [facility] Comment on above: MANAGEMENT OF PATIEN T CARE PER NURSING PROTOCOL Hematocrit Auto (Bld) [Volum e fraction]Ordered By: Lin Johansen on 04-27-2023 Hematocrit (Bld) [Volume fraction] 42.0 % 37-47 [facility] Laboratory - Chemistry and C hemistry - challengeOrdered By: Lin Johansen on 04-27-2023 ALP [Catalytic activity/Vol] 85 U/L 45-117 [facility] ALT [Catalytic activity/Vol] 22 U/L 13-56 [facility] CO2 [Moles/Vol] 13.0 mmol/L 21.0-32.0 [facility] Globulin (S) [Mass/Vol] 3.5 g/dL 2.2-4.2 [facility] Lipase [Catalytic activity/Vol] 10 U/L 13-75 [facility] Comment on above: Please note:LIPASE r evised reference range effective 22. New Lipase methodology. Expected to produce lower values than the previous assay method. NEW Reference Range: 13 - 75 U/L Urea nitrogen/Creatinine [Mass ratio] 13.9 mg/mg 10-20 [facility] Laboratory - Hematology and Cell countsOrdered By: Lin oJhansen on 04-27-2023 Erythrocyte distribution width (RBC) [Entitic vol] 46.5 fL 35.1-43.9 [facility] Erythrocyte distribution width (RBC) [Ratio] 14.2 % 11.6-14.6 [facility] Immature granulocytes/100 WBC (Bld) 1.800 % 0.0-0.9 [facility] Comment on above: IG% - Immature Granu locytes (promyelocytes, myelocytes and metamyelocytes) > 1% indicates that a LEFT SHIFT is Present. MCH (RBC) [Entitic mass] 29.0 pg 27.0-32.0 [facility] Nucleated RBC/100 WBC (Bld) [Ratio] 0 % 0-5 [facility] MCHC Auto (RBC) [Mass/Vol]Or dered By: Lin Johansen on 04-27-2023 MCHC (RBC) [Mass/Vol] 32.1 g/dL 32-36 [facility] No Panel InformationOrdered By: Lin Johansen on 04-27-2023 Estimated Creatinine Clearance Calc 78.23 ml/min [facility] Estimated GFR (MDRD) Amer 77 mL/min >60 [facility] Comment on above: GFR Calc Estimated GFR (MDRD) Non-Af Amer 64 mL/min >60 [facility] Comment on above: Non- GFR Calc Platelets bldOrdered By: Vicenta Johansen on 04-27-2023 Platelets (Bld) [#/Vol] 158 10*3/uL 150-450 [facility] Serum or plasma albumin milli urement (mass/volume)Ordered By: Lin Johansen on 04-27-2023 Albumin [Mass/Vol] 4.0 g/dL 3.2-5.0 [facility] Serum or plasma calcium milli urement (mass/volume)Ordered By: Lin Johansen on 04-27-2023 Calcium [Mass/Vol] 9.4 mg/dL 8.5-10.1 [facility] Serum or plasma creatinine m easurement (mass/volume)Ordered By: Lin Johansen on 04-27-2023 Creatinine [Mass/Vol] 1.08 mg/dL 0.55-1.02 [facility] Comment on above: The validity of the calculated GFR & GFRAA in patients over 70 years has not been determined. Clinical correlation is essential. Serum or plasma urea nitroge n measurement (mass/volume)Ordered By: Lin Johansen on 04-27-2023 Urea nitrogen [Mass/Vol] 15 mg/dL 7-18 [facility] Thin prep Papanicolaou smear with manual screeningOrdered By: Lin Johansen on 04-27-2023 Thin prep Papanicolaou smear with manual screening 10 U/L 15-37 [facility] Thin prep Papanicolaou smear with manual screening 15 5-15 [facility] Absolute lymphocyte countOrd ered By: Loki Soria on 04-26-2023 Lymphocytes Auto (Unsp spec) [#/Vol] 1.87 10*3/uL 0.83-4.51 [facility] Basophil percentageOrdered B y: Loki Soria on 04-26-2023 Basophils/100 WBC (Bld) 0.3 % 0-1 [facility] Chloride [Moles/Vol] 106 mmol/L 98-107 [facility] Eosinophils/100 WBC (Bld) 0.4 % 0-5 [facility] Glucose [Mass/Vol] 108 mg/dL 74-106 [facility] Comment on above: Fasting Glucose resu lt from 100 to 125 mg/dL suggests IMPAIRED HOMEOSTASIS per A.D.A. criteria. Neutrophils (Bld) [#/Vol] 10.8 10*3/uL 2.0-7.7 [facility] Neutrophils/100 WBC (Bld) 78.6 % 47-70 [facility] Potassium [Moles/Vol] 3.9 mmol/L 3.5-5.1 [facility] Sodium [Moles/Vol] 135 mmol/L 136-145 [facility] WBC (Bld) [#/Vol] 13.8 10*3/uL 4.4-11.0 [facility] Blood erythrocytes count (nu mber/volume)Ordered By: Loki Soria on 04-26-2023 RBC (Bld) [#/Vol] 4.80 10*6/uL 4.2-5.4 [facility] Blood hemoglobin measurement (mass/volume)Ordered By: [place] Yang on 04-26-2023 Hemoglobin (Bld) [Mass/Vol] 14.1 g/dL 12.0-15.0 [facility] Blood lymphocytes/100 leukoc ytesOrdered By: [facility] on 04-26-2023 Lymphocytes/100 WBC (Bld) 13.6 % 19-41 [facility] Blood monocytes/100 leukocyt esOrdered By: [place] Yang on 04-26-2023 Monocytes/100 WBC (Bld) 6.2 % 0-10 [facility] Blood platelet mean volumeOr dered By: [facility] on [facility]-2023 Platelet mean volume (Bld) [Entitic vol] 11.5 fL 6.2-12.0 [facility] Determination of erythrocyte mean corpuscular volume (MCV)Ordered By: [place] Yang on 04-26-2023 MCV (RBC) [Entitic vol] 88.8 fL 81-99 [facility] Hematocrit Auto (Bld) [Volum e fraction]Ordered By: [facility] on 04-26-2023 Hematocrit (Bld) [Volume fraction] 42.6 % 37-47 [facility] Laboratory - Chemistry and C hemistry - challengeOrdered By: [facility] on 04-26-2023 CO2 [Moles/Vol] 20.0 mmol/L 21.0-32.0 [facility] Urea nitrogen/Creatinine [Mass ratio] 10.5 mg/mg 10-20 [facility] Laboratory - Hematology and Cell countsOrdered By: [facility] on 04-26-2023 Erythrocyte distribution width (RBC) [Entitic vol] 45.3 fL 35.1-43.9 [facility] Erythrocyte distribution width (RBC) [Ratio] 13.9 % 11.6-14.6 [facility] Immature granulocytes/100 WBC (Bld) 0.900 % 0.0-0.9 [facility] Comment on above: IG% - Immature Granu locytes (promyelocytes, myelocytes and metamyelocytes) > 1% indicates that a LEFT SHIFT is Present. MCH (RBC) [Entitic mass] 29.4 pg 27.0-32.0 [facility] Nucleated RBC/100 WBC (Bld) [Ratio] 0 % 0-5 [facility] MCHC Auto (RBC) [Mass/Vol]Or dered By: Loki Soria on 04-26-2023 MCHC (RBC) [Mass/Vol] 33.1 g/dL 32-36 [facility] No Panel InformationOrdered By: Loki Soria on 04-26-2023 Estimated Creatinine Clearance Calc 91.18 ml/min [facility] Estimated GFR (MDRD) Amer 89 mL/min >60 [facility] Comment on above: GFR Calc Estimated GFR (MDRD) Non-Af Amer 74 mL/min >60 [facility] Comment on above: Non- GFR Calc Thyroid Stimulating Hormone (TSH) 3.85 uIU/mL 0.358-3.74 [facility] Troponin I High Sensitivity 4 pg/mL 3.0-54.0 [facility] Comment on above: Please Note: New Ivone t Units and Gender Specific Reference Ranges. For more information see Policy Stat Procedure [place] High Sensitivity Troponin (TNIH) and attachments. Platelets bldOrdered By: Ashley Yang on 04-26-2023 Platelets (Bld) [#/Vol] 158 10*3/uL 150-450 [facility] Serum or plasma calcium milli urement (mass/volume)Ordered By: Loki Soria on 04-26-2023 Calcium [Mass/Vol] 9.2 mg/dL 8.5-10.1 [facility] Serum or plasma creatinine m easurement (mass/volume)Ordered By: Loki Soria on 04-26-2023 Creatinine [Mass/Vol] 0.96 mg/dL 0.55-1.02 [facility] Comment on above: The validity of the calculated GFR & GFRAA in patients over 70 years has not been determined. Clinical correlation is essential. Serum or plasma urea nitroge n measurement (mass/volume)Ordered By: Loki Soria on 04-26-2023 Urea nitrogen [Mass/Vol] 10 mg/dL 7-18 [facility] Thin prep Papanicolaou smear with manual screeningOrdered By: Loki Soria on 04-26-2023 Thin prep Papanicolaou smear with manual screening 9 5-15 [facility] Absolute lymphocyte countOrd ered By: Greg Philip on 04-23-2023 Lymphocytes Auto (Unsp spec) [#/Vol] 1.93 10*3/uL 0.83-4.51 [facility] Basophil percentageOrdered B y: Greg Philip on 04-23-2023 Basophil percentage 5-10 SEEN /hpf 0-5 [facility] Basophils/100 WBC (Bld) 0.3 % 0-1 [facility] Bilirubin [Mass/Vol] 0.30 mg/dL 0.20-1.00 [facility] Comment on above: For patients on eltr ombopag therapy, use of Dimension [place] TBIL is not recommended. Chloride [Moles/Vol] 114 mmol/L 98-107 [facility] Eosinophils/100 WBC (Bld) 0.6 % 0-5 [facility] Glucose [Mass/Vol] 60 mg/dL 74-106 [facility] Neutrophils (Bld) [#/Vol] 10.3 10*3/uL 2.0-7.7 [facility] Neutrophils/100 WBC (Bld) 77.2 % 47-70 [facility] Potassium [Moles/Vol] 3.3 mmol/L 3.5-5.1 [facility] Protein [Mass/Vol] 6.3 g/dL 6.4-8.2 [facility] Sodium [Moles/Vol] 143 mmol/L 136-145 [facility] WBC (Bld) [#/Vol] 13.4 10*3/uL 4.4-11.0 [facility] Beta hCG serum qualOrdered B y: Greg Philip on 04-23-2023 Beta HCG ( test) Ql Negative [facility] Bilirubin Test strip Ql (U)O rdered By: Greg Philip on 04-23-2023 Bilirubin Ql (U) Negative Negative [facility] Blood erythrocytes count (nu mber/volume)Ordered By: Greg Philip on 04-23-2023 RBC (Bld) [#/Vol] 4.34 10*6/uL 4.2-5.4 [facility] Blood hemoglobin measurement (mass/volume)Ordered By: Greg Philip on 04-23-2023 Hemoglobin (Bld) [Mass/Vol] 13.0 g/dL 12.0-15.0 [facility] Blood lymphocytes/100 leukoc ytesOrdered By: Greg Philip on 04-23-2023 Lymphocytes/100 WBC (Bld) 14.5 % 19-41 [facility] Blood monocytes/100 leukocyt esOrdered By: Greg Philip on 04-23-2023 Monocytes/100 WBC (Bld) 6.7 % 0-10 [facility] Blood platelet mean volumeOr dered By: Greg Philip on 04-23-2023 Platelet mean volume (Bld) [Entitic vol] 12.7 fL 6.2-12.0 [facility] Determination of erythrocyte mean corpuscular volume (MCV)Ordered By: Greg Philip on 04-23-2023 MCV (RBC) [Entitic vol] 91.7 fL 81-99 [facility] Glucose Glucometer (BldC) [M ass/Vol]Ordered By: Greg Philip on 04-23-2023 Glucose [Mass/Vol] 108 mg/dL 74-106 [facility] Comment on above: MANAGEMENT OF PATIEN T CARE PER NURSING PROTOCOL Hematocrit Auto (Bld) [Volum e fraction]Ordered By: Greg Philip on 04-23-2023 Hematocrit (Bld) [Volume fraction] 39.8 % 37-47 [facility] INR in Blood by Coagulation assayOrdered By: Greg Philip on 04-23-2023 INR Coag (Bld) [Relative time] 1.1 {INR} [facility] Ketones Test strip Ql (U)Ord ered By: Greg Philip on 04-23-2023 Ketones Ql (U) Negative Negative [facility] Laboratory - Chemistry and C hemistry - challengeOrdered By: Greg Philip on 04-23-2023 ALP [Catalytic activity/Vol] 66 U/L 45-117 [facility] ALT [Catalytic activity/Vol] 31 U/L 13-56 [facility] CO2 [Moles/Vol] 25.0 mmol/L 21.0-32.0 [facility] Globulin (S) [Mass/Vol] 2.9 g/dL 2.2-4.2 [facility] Lipase [Catalytic activity/Vol] 19 U/L 13-75 [facility] Comment on above: Please note:LIPASE r evised reference range effective 22. New Lipase methodology. Expected to produce lower values than the previous assay method. NEW Reference Range: 13 - 75 U/L Urea nitrogen/Creatinine [Mass ratio] 23.1 mg/mg 10-20 [facility] Laboratory - CoagulationOrde red By: Greg Philip on 04-23-2023 aPTT Coag (Bld) [Time] 34.5 s 24.1-36.2 [facility] PT Coag (PPP) [Time] 14.4 s 11.7-14.9 [facility] Laboratory - Hematology and Cell countsOrdered By: Greg Philip on 04-23-2023 Erythrocyte distribution width (RBC) [Entitic vol] 47.8 fL 35.1-43.9 [facility] Erythrocyte distribution width (RBC) [Ratio] 14.1 % 11.6-14.6 [facility] Immature granulocytes/100 WBC (Bld) 0.700 % 0.0-0.9 [facility] Comment on above: IG% - Immature Granu locytes (promyelocytes, myelocytes and metamyelocytes) > 1% indicates that a LEFT SHIFT is Present. MCH (RBC) [Entitic mass] 30.0 pg 27.0-32.0 [facility] Nucleated RBC/100 WBC (Bld) [Ratio] 0 % 0-5 [facility] MCHC Auto (RBC) [Mass/Vol]Or dered By: Greg Philip on 04-23-2023 MCHC (RBC) [Mass/Vol] 32.7 g/dL 32-36 [facility] Mucus LM Ql (Urine sed)Order ed By: Greg Philip on 04-23-2023 Mucus Ql (Urine sed) 0 SEEN /hpf [facility] Nitrite Test strip Ql (U)Ord ered By: Greg Philip on 04-23-2023 Nitrite Ql (U) Negative Negative [facility] No Panel InformationOrdered By: Greg Philip on 04-23-2023 Estimated Creatinine Clearance Calc 156.31 ml/min [facility] Estimated GFR (MDRD) Amer 164 mL/min >60 [facility] Comment on above: GFR Calc Estimated GFR (MDRD) Non-Af Amer 135 mL/min >60 [facility] Comment on above: Non- GFR Calc Troponin I High Sensitivity 6 pg/mL 3.0-54.0 [facility] Comment on above: Please Note: New Ivone t Units and Gender Specific Reference Ranges. For more information see Policy Stat Procedure [place] High Sensitivity Troponin (TNIH) and attachments. Platelets bldOrdered By: Allyn Philip on 04-23-2023 Platelets (Bld) [#/Vol] 149 10*3/uL 150-450 [facility] Protein Test strip Ql (U)Ord ered By: Greg Philip on 04-23-2023 Protein Ql (U) Negative Negative [facility] Serum or plasma acetone milli urement (mass/volume)Ordered By: Greg Philip on 04-23-2023 Acetone [Mass/Vol] Negative NEG [facility] Serum or plasma albumin milli urement (mass/volume)Ordered By: Greg Philip on 04-23-2023 Albumin [Mass/Vol] 3.4 g/dL 3.2-5.0 [facility] Serum or plasma albumin/glob ulin mass ratioOrdered By: Greg Philip on 04-23-2023 Albumin/Globulin [Mass ratio] 1.2 {ratio} 0.9-2.4 [facility] Serum or plasma calcium milli urement (mass/volume)Ordered By: Greg Philip on 04-23-2023 Calcium [Mass/Vol] 8.6 mg/dL 8.5-10.1 [facility] Serum or plasma creatinine m easurement (mass/volume)Ordered By: Greg Philip on 04-23-2023 Creatinine [Mass/Vol] 0.56 mg/dL 0.55-1.02 [facility] Comment on above: The validity of the calculated GFR & GFRAA in patients over 70 years has not been determined. Clinical correlation is essential. Serum or plasma urea nitroge n measurement (mass/volume)Ordered By: Greg Philip on 04-23-2023 Urea nitrogen [Mass/Vol] 13 mg/dL 7-18 [facility] Squamous epithelial cells de tection in urine sediment by light microscopyOrdered By: Greg Philip on 08-27-2023 Epithelial cells.squamous LM Ql (Urine sed) 0 SEEN /hpf 5-10 [facility] Thin prep Papanicolaou smear with manual screeningOrdered By: Greg Philip on 04-23-2023 Thin prep Papanicolaou smear with manual screening 13 U/L 15-37 [facility] Thin prep Papanicolaou smear with manual screening 4 5-15 [facility] Urine blood detectionOrdered By: Greg Philip on 04-23-2023 RBC Ql (U) Negative Negative [facility] RBC Ql (U) 0 SEEN /hpf 0-5 [facility] Urine clarityOrdered By: Allyn Philip on 04-23-2023 Clarity (U) Clear Clear [facility] Urine color determinationOrd ered By: Greg Philip on 04-23-2023 Color (U) Yellow Yellow [facility] Urine glucose detectionOrder ed By: Greg Philip on 04-23-2023 Glucose Ql (U) 50 mg/dl Normal [facility] Urine leukocyte esterase det ection by dipstickOrdered By: Greg Philip on 04-23-2023 Leukocyte esterase Test strip Ql (U) 500 /ul Negative [facility] Urine pHOrdered By: Greg sun on 04-23-2023 pH (U) 8.0 [pH] 5.0 - 8.0 [facility] Urine sediment bacteria coun t by microscopy (number/high power field)Ordered By: Greg Philip on 04-23-2023 Bacteria LM.HPF (Urine sed) [#/Area] 1 /[HPF] None Seen [facility] Urine specific gravity measu rementOrdered By: Greg Philip on 04-23-2023 Specific gravity (U) [Rel density] 1.015 1.002-1.030 [facility] Urobilinogen Auto test strip Ql (U)Ordered By: Greg Philip on 04-23-2023 Urobilinogen Ql (U) Normal mg/dl Normal [facility] CBC W Auto Differential pane l (Bld)on 04-06-2023 Basophils (Bld) [#/Vol] 0.05 10*3/uL Normal <0.11 [facility] Comment on above: Order Comment: Speci men Type: BLOOD SPECIMEN Ordering Facility: [facility] Address: [address] [address] Performed By: #### 3 1201-7, 5195-3, 72511-3, SYPH #### [facility] CLIA [id number] [address] [place] [address] [place] Basophils/100 WBC (Bld) 0.4 % Normal [facility] Comment on above: Order Comment: Speci men Type: BLOOD SPECIMEN Ordering Facility: [facility] Address: [address] [address] Performed By: #### 3 1201-7, 5-3, 95423-1, SYPH #### [facility] CLIA [id number] [address] [place] [address] [place] Differential cell count method Nom (Bld) Auto Normal [facility] Comment on above: Order Comment: Speci men Type: BLOOD SPECIMEN Ordering Facility: [facility] Address: [address] [address] Performed By: #### 3 1201-7, 5194-3, 32286-7, SYPH #### [facility] CLIA [id number] [address] [place] [address] [place] Eosinophils (Bld) [#/Vol] 0.03 10*3/uL Normal <0.46 [facility] Comment on above: Order Comment: Speci men Type: BLOOD SPECIMEN Ordering Facility: [facility] Address: [address] [address] Performed By: #### 3 1201-7, 5-3, 84878-3, SYPH #### [facility] CLIA [id number] [address] [place] [address] [place] Eosinophils/100 WBC (Bld) 0.2 % Normal [facility] Comment on above: Order Comment: Speci men Type: BLOOD SPECIMEN Ordering Facility: [facility] Address: [address] [address] Performed By: #### 3 1201-7, 5-3, 94542-4, SYPH #### [facility] CLIA [id number] [address] [place] [address] [place] Erythrocyte distribution width (RBC) [Ratio] 13.9 % Normal 11.5-15.0 [facility] Comment on above: Order Comment: Speci men Type: BLOOD SPECIMEN Ordering Facility: [facility] Address: [address] [place] [address] Performed By: #### 3 1201-7, 5195-3, 29990-0, SYPH #### [facility] CLIA [id number] [address] [place] [address] [place] Hematocrit (Bld) [Volume fraction] 43.8 % Normal 36.0-46.0 [facility] Comment on above: Order Comment: Speci men Type: BLOOD SPECIMEN Ordering Facility: [facility] Address: [address] [place] [address] Performed By: #### 3 1201-7, 5195-3, 00268-5, SYPH #### [facility] CLIA [id number] [address] [place] [address] [place] Hemoglobin (Bld) [Mass/Vol] 14.4 g/dL Normal 11.5-15.5 [facility] Comment on above: Order Comment: Speci men Type: BLOOD SPECIMEN Ordering Facility: [facility] Address: [address] [place] [address] Performed By: #### 3 1201-7, 5194-3, 98214-0, SYPH #### [facility] CLIA [id number] [address] [place] [address] [place] Immature granulocytes (Bld) [#/Vol] 0.11 10*3/uL High <0.10 [facility] Comment on above: Order Comment: Speci men Type: BLOOD SPECIMEN Ordering Facility: [facility] Address: [address] [place] [address] Performed By: #### 3 1201-7, 5195-3, 83636-8, SYPH #### [facility] CLIA [id number] [address] [place] [address] [place] Immature granulocytes/100 WBC (Bld) 0.8 % Normal [facility] Comment on above: Order Comment: Speci men Type: BLOOD SPECIMEN Ordering Facility: [facility] Address: [address] [place] [address] Performed By: #### 3 1201-7, 5195-3, 49547-1, SYPH #### [facility] CLIA [id number] [address] [place] [address] [place] Lymphocytes (Bld) [#/Vol] 2.59 10*3/uL Normal 1.00-4.00 [facility] Comment on above: Order Comment: Speci men Type: BLOOD SPECIMEN Ordering Facility: [facility] Address: [address] [place] [address] Performed By: #### 3 1201-7, 5195-3, 11037-4, SYPH #### [facility] CLIA [id number] [address] [place] [address] [place] Lymphocytes/100 WBC (Bld) 19.8 % Normal [facility] Comment on above: Order Comment: Speci men Type: BLOOD SPECIMEN Ordering Facility: [facility] Address: [address] [place] [address] Performed By: #### 3 1201-7, 5195-3, 75260-9, SYPH #### [facility] CLIA [id number] [address] [place] [address] [place] MCH (RBC) [Entitic mass] 29.1 pg Normal 26.0-34.0 [facility] Comment on above: Order Comment: Speci men Type: BLOOD SPECIMEN Ordering Facility: [facility] Address: [address] [place] [address] Performed By: #### 3 1201-7, 5195-3, 33596-6, SYPH #### [facility] CLIA [id number] [address] [place] [address] [place] MCHC (RBC) [Mass/Vol] 32.9 g/dL Normal 30.5-36.0 [facility] Comment on above: Order Comment: Speci men Type: BLOOD SPECIMEN Ordering Facility: [facility] Address: [address] [address] Performed By: #### 3 1201-7, 5195-3, 48530-4, SYPH #### [facility] CLIA [id number] [address] [place] [address] [place] MCV (RBC) [Entitic vol] 88.5 fL Normal 80.0-100.0 [facility] Comment on above: Order Comment: Speci men Type: BLOOD SPECIMEN Ordering Facility: [facility] Address: [address] [place] [address] Performed By: #### 3 1201-7, 5195-3, 80528-9, SYPH #### [facility] CLIA [id number] [address] [place] [address] [place] Monocytes (Bld) [#/Vol] 0.76 10*3/uL Normal <0.87 [facility] Comment on above: Order Comment: Speci men Type: BLOOD SPECIMEN Ordering Facility: [facility] Address: [address] [address] Performed By: #### 3 1201-7, 5195-3, 09748-9, SYPH #### [facility] CLIA [id number] [address] [place] [address] [place] Monocytes/100 WBC (Bld) 5.8 % Normal [facility] Comment on above: Order Comment: Speci men Type: BLOOD SPECIMEN Ordering Facility: [facility] Address: [address] Performed By: #### 3 1201-7, 5195-3, 26053-4, SYPH #### [facility] CLIA [id number] [address] [place], [place] [address] [place] Neutrophils (Bld) [#/Vol] 9.56 10*3/uL High 1.45-7.50 [facility] Comment on above: Order Comment: Speci men Type: BLOOD SPECIMEN Ordering Facility: [facility] Address: [address] [address] Performed By: #### 3 1201-7, 5195-3, 20222-9, SYPH #### [facility] CLIA [id number] [address] [place] [address] [place] Neutrophils/100 WBC (Bld) 73.0 % Normal [facility] Comment on above: Order Comment: Speci men Type: BLOOD SPECIMEN Ordering Facility: [facility] Address: [address] [address] Performed By: #### 3 1201-7, 5195-3, 14744-8, SYPH #### [facility] CLIA [id number] [address] [place] [address] [place] Nucleated RBC (Bld) [#/Vol] 10*3/uL Normal <0.01 [facility] Comment on above: Order Comment: Speci men Type: BLOOD SPECIMEN Ordering Facility: [facility] Address: [address] [place] [address] Performed By: #### 3 1201-7, 5195-3, 48363-1, SYPH #### [facility] CLIA [id number] [address] [place] [address] [place] Nucleated RBC/100 WBC (Bld) [Ratio] 0.0 /100 WBC Normal [facility] Comment on above: Order Comment: Speci men Type: BLOOD SPECIMEN Ordering Facility: [facility] Address: [address] [address] Performed By: #### 3 1201-7, 5195-3, 55808-8, SYPH #### [facility] CLIA [id number] [address] [place] [address] [place] Platelet mean volume (Bld) [Entitic vol] 12.0 fL Normal 9.0-12.7 [facility] Comment on above: Order Comment: Speci men Type: BLOOD SPECIMEN Ordering Facility: [facility] Address: [address] [place] [address] Performed By: #### 3 1201-7, 5195-3, 58164-5, SYPH #### [facility] CLIA [id number] [address] [place], [place] [address] [place] Platelets (Bld) [#/Vol] 180 10*3/uL Normal 150-400 [facility] Comment on above: Order Comment: Speci men Type: BLOOD SPECIMEN Ordering Facility: [facility] Address: [address] [place] Performed By: #### 3 1201-7, 5195-3, 20839-2, SYPH #### [facility] CLIA [id number] [address] [place] [address] [place] RBC (Bld) [#/Vol] 4.95 10*6/uL Normal 3.90-5.20 [facility] Comment on above: Order Comment: Speci men Type: BLOOD SPECIMEN Ordering Facility: [facility] Address: [address] [facility] Performed By: #### 3 1201-7, 5195-3, 28811-3, SYPH #### [facility] CLIA [id number] [address] [place] [address] [place] WBC (Bld) [#/Vol] 13.10 10*3/uL High 3.70-11.00 [facility] Comment on above: Order Comment: Speci men Type: BLOOD SPECIMEN Ordering Facility: [facility] Address: [address] [id number] Performed By: #### 3 1201-7, 5195-3, 53572-8, SYPH #### [facility] CLIA [id number] [address] [place], [place] [address] [facility] [place] CT ABD/PEL W IVCONon 023 CT ABD/PEL W IVCON * * *Final Report* * * DATE OF EXAM: Apr 06 2023 12:56AM [facility] 0530 - CT ABD/PEL W IVCON / [...] Likely right lower quadrant ventral injection sites/granuloma. Senior Financial Reporting Analyst (topogram) images: No additional findings. IMPRESSION: 1. No acute abnormality. Fitness Leader: CONCHITA Transcribe Date/Time: Apr 06 2023 1:25A Dictated by : LIANG SLAUGHTER MD This examination was interpreted and the report reviewed and electronically signed by: LIANG SLAUGHTER MD on Apr 06 2023 1:30AM EST [id number] Normal [facility] Comprehensive metabolic 2000 panelon 04-06-2023 Albumin [Mass/Vol] 4.2 g/dL Normal 3.2-5.0 [facility] Comment on above: Order Comment: Speci men Type: BLOOD SPECIMEN Ordering Facility: [facility] Address: [place] [address] Performed By: #### 3 1201-7, 5195-3, 00225-9, SYPH #### [facility] CLIA [id number] [address] [place], [place] [address] [address] [facility] ALP [Catalytic activity/Vol] 85 U/L Normal 45-117 [facility] Comment on above: Order Comment: Jon russ Type: BLOOD SPECIMEN Ordering Facility: [facility] Address: [address] [place] [address] Performed By: #### 3 1201-7, 5195-3, 44069-5, SYPH #### [facility] CLIA [id number] [address] [place] [address] OF [facility] ALT [Catalytic activity/Vol] 87 U/L High 13-61 [facility] Comment on above: Order Comment: Speci men Type: BLOOD SPECIMEN Ordering Facility: [facility] Address: [address] [place] [address] Result Comment: Resu lts may be falsely depressed after the administration of Sulfasalazine and/or Sulfapyridine. Performed By: #### 3 1201-7, 5195-3, 55887-5, SYPH #### [facility] CLIA [id number] [address] [place] [address] Anion gap [Moles/Vol] 8 mmol/L Normal 5-16 [facility] Comment on above: Order Comment: Jon russ Type: BLOOD SPECIMEN Ordering Facility: [facility] Address: [address] [place] [address] Performed By: #### 3 1201-7, 5195-3, 70184-4, SYPH #### [facility] CLIA [id number] [address] [place] [address] OF [facility] AST [Catalytic activity/Vol] 60 U/L High 8-34 [facility] Comment on above: Order Comment: Jon russ Type: BLOOD SPECIMEN Ordering Facility: [facility] Address: [address] [place] [address] Result Comment: Resu lts may be falsely depressed after the administration of Sulfasalazine and/or Sulfapyridine. Performed By: #### 3 1201-7, 5195-3, 35708-0, SYPH #### [facility] CLIA [id number] [address] [place] [address] [place] Bilirubin [Mass/Vol] 0.7 mg/dL Normal 0.2-1.0 [facility] Comment on above: Order Comment: Speci men Type: BLOOD SPECIMEN Ordering Facility: [facility] Address: [address] [place] [address] Performed By: #### 3 1201-7, 5195-3, 97840-7, SYPH #### [facility] CLIA [id number] [address] [place] [address] [place] Calcium [Mass/Vol] 9.6 mg/dL Normal 8.5-10.5 [facility] Comment on above: Order Comment: Speci men Type: BLOOD SPECIMEN Ordering Facility: [facility] Address: [address] [place] [address] Performed By: #### 3 1201-7, 5195-3, 92965-5, SYPH #### [facility] CLIA [id number] [address] [place] [address] [place] Chloride [Moles/Vol] 107 mmol/L Normal 98-107 [facility] Comment on above: Order Comment: Speci men Type: BLOOD SPECIMEN Ordering Facility: [facility] Address: [address] [place] [address] Performed By: #### 3 1201-7, 5195-3, 75504-5, SYPH #### [facility] CLIA [id number] [address] [place] [address] [place] CO2 [Moles/Vol] 26 mmol/L Normal 21-32 [facility] Comment on above: Order Comment: Speci men Type: BLOOD SPECIMEN Ordering Facility: [facility] Address: [address] [place] [address] Performed By: #### 3 1201-7, 5195-3, 80227-0, SYPH #### [facility] CLIA [id number] [address] [place] [address] [place] Creatinine [Mass/Vol] 0.69 mg/dL Normal 0.51-0.95 [facility] Comment on above: Order Comment: Jon russ Type: BLOOD SPECIMEN Ordering Facility: [facility] Address: [address] [id number] Result Comment: Cleopatra ents receiving either N-Acetylcysteine (NAC) or Metamizole prior to venipuncture, may have falsely depressed results. Performed By: #### 3 1201-7, 5195-3, 52922-1, SYPH #### [facility] CLIA [id number] [address] [place] [address] [place] ESTIMATED GLOMERULAR FILTRATION RATE 121 mL/min/1.73m??? Normal >=60 [facility] Comment on above: Order Comment: Jon russ Type: BLOOD SPECIMEN Ordering Facility: [facility] Address: [address] [place], [place] [phone] Result Comment: Janett mated Glomerular Filtration Rate [...] GFR. Performed By: #### 3 1201-7, 5195-3, 70467-7, SYPH #### [facility] CLIA [id number] [address] [place] [address] [place] Glucose [Mass/Vol] 79 mg/dL Normal 70-100 [facility] Comment on above: Order Comment: Jon russ Type: BLOOD SPECIMEN Ordering Facility: [facility] Address: [address] [phone] Result Comment: The [place] [employer] (ADA) provides guidance for cutoff [...] Standards of Medical Care in Diabetes 2016, [place] [employer]. Diabetes Care. 2016.39(Suppl 1). Results may be falsely elevated after the administration of Sulfapyridine. Results may be falsely depressed after the administration of Sulfasalazine. Performed By: #### 3 1201-7, 5195-3, 04465-3, SYPH #### [facility] CLIA [id number] [address] [place] [address] [place] Potassium [Moles/Vol] 4.0 mmol/L Normal 3.5-5.1 [facility] Comment on above: Order Comment: Jon russ Type: BLOOD SPECIMEN Ordering Facility: [facility] Address: [address] [place] [address] Performed By: #### 3 1201-7, 5195-3, 53686-5, SYPH #### [facility] LABORATORY CLIA [id number] [address] [place] [address] [place] Protein [Mass/Vol] 7.2 g/dL Normal 6.0-8.5 [facility] Comment on above: Order Comment: Jon russ Type: BLOOD SPECIMEN Ordering Facility: [facility] Address: [address] [place] [address] Performed By: #### 3 1201-7, 5195-3, 02800-8, SYPH #### [facility] CLIA [id number] [address] [place] [address] [place] Sodium [Moles/Vol] 141 mmol/L Normal 136-145 [facility] Comment on above: Order Comment: Jon russ Type: BLOOD SPECIMEN Ordering Facility: [facility] Address: [address] [place] [address] Performed By: #### 3 1201-7, 5195-3, 90241-7, SYPH #### [facility] CLIA [id number] [address] [place], [place] [id number] [place] Urea nitrogen [Mass/Vol] 15 mg/dL Normal 7-26 [facility] Comment on above: Order Comment: Speci men Type: BLOOD SPECIMEN Ordering Facility: [facility] Address: [place] [address] Performed By: #### 3 1201-7, 5195-3, 85946-7, SYPH #### [facility] CLIA [id number] [address] [place], [place] [address] [facility] ED PROV NOTEon 04-06-2023 ED PROV NOTE HNO ID: [id number] Author: Greg Zimmerman DO Service: Emergency Medicine [...] ZIMMERMAN 04/06/23 0236 GREG ZIMMERMAN 04/06/23 0254 [facility] ED PROV NOTE HNO ID: [id number] Author: Jorge Alberto Nj MD Service: ? [...] be ki (more content not included)... Normal [facility] ED Triage Noteon 04-06-2023 ED Triage Note HNO ID: [id number] Author: Merced Mora PA-C Service: ? Author Type: Physician Appliance Counselor Type: ED Triage Notes Filed: 04/05/2023 10:31 [...] CMP Urinalysis SIGNATURE: Merced Mora PA-C Normal [facility] HCG QUAL BLDon 04-06-2023 HCG, QUALITATIVE Negative Normal Negative [facility] Comment on above: Order Comment: Speci men Type: BLOOD SPECIMEN Ordering Facility: [facility] Address: [address] [place], [place] [address] Performed By: #### 3 1201-7, 5195-3, 88715-9, SYPH #### [facility] CLIA [id number] [address] [place] [address] [place] Urinalysis complete panel (U )on 04-06-2023 Bacteria LM.HPF (Urine sed) [#/Area] Rare Abnormal None Seen [facility] Comment on above: Order Comment: Speci men Type: BLOOD SPECIMEN Ordering Facility: [facility] Address: [address] [place] [address] Performed By: #### 3 1201-7, 5195-3, 90348-6, SYPH #### [facility] CLIA [id number] [address] [place] [address] [place] Bilirubin Ql (U) Negative Normal Negative [facility] Comment on above: Order Comment: Speci men Type: BLOOD SPECIMEN Ordering Facility: [facility] Address: [address] [place] [address] Performed By: #### 3 1201-7, 5194-3, 23906-6, SYPH #### [facility] CLIA [id number] [address] [place] [address] [place] Clarity (Unsp spec) Clear Normal Clear [facility] Comment on above: Order Comment: Speci men Type: BLOOD SPECIMEN Ordering Facility: [facility] Address: [address] [place] [address] Performed By: #### 3 1201-7, 3, , SYPH #### [facility] CLIA [id number] [address] [place] [address] [place] Color (U) Yellow Normal Yellow [facility] Comment on above: Order Comment: Speci men Type: BLOOD SPECIMEN Ordering Facility: [facility] Address: [address] [place] [address] Performed By: #### 3 1201-7, 3, , SYPH #### [facility] CLIA [id number] [address] [place] [address] [place] Epithelial cells LM.HPF (Urine sed) [#/Area] Many Normal [facility] Comment on above: Order Comment: Speci men Type: BLOOD SPECIMEN Ordering Facility: [facility] Address: [address] [place] [address] Performed By: #### 3 1201-7, 5194-3, , SYPH #### [facility] CLIA [id number] [address] [place] [address] [place] Glucose Test strip (U) [Mass/Vol] Negative Normal Negative [facility] Comment on above: Order Comment: Speci men Type: BLOOD SPECIMEN Ordering Facility: [facility] Address: [address] [place] [address] Performed By: #### 3 1201-7, 5195-3, 05551-5, SYPH #### [facility] CLIA [id number] [address] [place] [address] Hemoglobin Ql (U) Negative Normal Negative [facility] Comment on above: Order Comment: Speci men Type: BLOOD SPECIMEN Ordering Facility: [facility] Address: [address] [place] [address] Performed By: #### 3 1201-7, 5-3, 36408-4, SYPH #### [facility] CLIA [id number] [address] [place] [address] [place] Ketones Ql (U) Trace Abnormal Negative [facility] Comment on above: Order Comment: Speci men Type: BLOOD SPECIMEN Ordering Facility: [facility] Address: [address] [place] [address] Performed By: #### 3 1201-7, 5194-3, 31400-6, SYPH #### [facility] CLIA [id number] [address] [place] [address] [place] Leukocyte esterase Test strip Ql (U) 1+ Abnormal Negative [facility] Comment on above: Order Comment: Speci men Type: BLOOD SPECIMEN Ordering Facility: [facility] Address: [address] [place] [address] Performed By: #### 3 1201-7, 5-3, 36643-4, SYPH #### [facility] CLIA [id number] [address] [place] [address] [place] Nitrite Ql (U) Negative Normal Negative [facility] Comment on above: Order Comment: Speci men Type: BLOOD SPECIMEN Ordering Facility: [facility] Address: [address] [place] [address] Performed By: #### 3 1201-7, 5-3, 33709-4, SYPH #### [facility] CLIA [id number] [address] [place] [address] [place] pH (U) 5.0 [pH] Normal 5.0-8.0 [facility] Comment on above: Order Comment: Speci men Type: BLOOD SPECIMEN Ordering Facility: [facility] Address: [address] [place] [address] Performed By: #### 3 1201-7, 5195-3, 78493-8, SYPH #### [facility] CLIA [id number] [address] [place] [address] [place] Protein (U) [Mass/Vol] Negative Normal Negative [facility] Comment on above: Order Comment: Speci men Type: BLOOD SPECIMEN Ordering Facility: [facility] Address: [address] [place] [address] Performed By: #### 3 1201-7, 5195-3, 14020-8, SYPH #### [facility] CLIA [id number] [address] [place] [address] [place] RBC LM.HPF (Urine sed) [#/Area] 3-5 /HPF Abnormal 0-3 /HPF [facility] Comment on above: Order Comment: Speci men Type: BLOOD SPECIMEN Ordering Facility: [facility] Address: [address] [place] [address] Performed By: #### 3 1201-7, 5195-3, 11208-6, SYPH #### [facility] CLIA [id number] [address] [place] [address] [place] Specific gravity (U) [Rel density] >1.030 High 1.005-1.030 [facility] Comment on above: Order Comment: Speci men Type: BLOOD SPECIMEN Ordering Facility: [facility] Address: [address] [place] [address] Performed By: #### 3 1201-7, 5195-3, 23114-7, SYPH #### [facility] CLIA [id number] [address] [place] [address] [place] Urobilinogen Ql (U) Negative Normal Negative [facility] Comment on above: Order Comment: Speci men Type: BLOOD SPECIMEN Ordering Facility: [facility] Address: [place] [address] Performed By: #### 3 1201-7, 5195-3, 76714-7, SYPH #### [facility] CLIA [id number] [address] [place], [place] [address] [facility] WBC LM.HPF (Urine sed) [#/Area] 6-10 /HPF Abnormal 0-5 /HPF [facility] Comment on above: Order Comment: Speci men Type: BLOOD SPECIMEN Ordering Facility: [facility] Address: [place] [address] Performed By: #### 3 1201-7, 5195-3, 99966-8, SYPH #### [facility] CLIA [id number] [address] [place], [place] [address] [facility] ED NOTEon 04-05-2023 ED NOTE HNO ID: [id number] Author: Ten Mao, RN Service: Nursing Author Type: Registered Nurse Type: ED Notes Filed: 04/05/2023 9:44 PM Note Text: PT presents to ED with c/o left hip pain, back pain and pelvic pain. Reports hip pain started first this morning. Pain now radiating into back and pelvic area. Endorses nausea. Normal [facility] Basic metabolic 2000 panelon 03-22-2023 Anion gap [Moles/Vol] 7 mmol/L Low 10 - 20 mmol/L [facility] Calcium [Mass/Vol] 8.0 mg/dL Low 8.4 - 10. 2 mg/dL [facility] Chloride [Moles/Vol] 110 mmol/L High 98 - 10 8 mmol/L [facility] Creatinine [Mass/Vol] 0.81 mg/dL 0.40 - 1.10 mg/dL [facility] GFR/1.73 sq M.predicted CKD-EPI (S/P/Bld) [Vol rate/Area] 102 - PINF [facility] Comment on above: Estimated GFR was ca lculated using the 2020 CKD-EPI creatinine equation. Glucose [Mass/Vol] 251 mg/dL High 65 - 99 mg/dL [facility] HCO3 [Moles/Vol] 26 mmol/L 21 - 32 mmol/L [facility] Interpretation and review of laboratory results Abnormal [facility] Potassium [Moles/Vol] 3.2 mmol/L Low 3.5 - 5.1 mmol/L [facility] Sodium [Moles/Vol] 140 mmol/L 135 - 145 mmol/L [facility] Urea nitrogen [Mass/Vol] 8 mg/dL 8 - 25 mg/dL [facility] Urea nitrogen/Creatinine [Mass ratio] 9.9 mg/mg Low 10.0 - 20.0 [facility] has implemented the eGFR calculation approach that does not have a coefficient for race that conforms to the NKF-ASN Task Force Recommendations. [facility] CBC Auto Differentialon 02-26 Basophils (Bld) [#/Vol] 0.02 10*3/uL [facility] Basophils/100 WBC (Bld) 0.2 % [facility] Eosinophils (Bld) [#/Vol] 0.04 10*3/uL [facility] Eosinophils/100 WBC (Bld) 0.4 % [facility] Erythrocyte distribution width (RBC) [Entitic vol] 13.9 % 11.6 - 14.8 % [facility] Hematocrit (Bld) [Volume fraction] 37.4 % 36.0 - 46.0 % [facility] Hemoglobin (Bld) [Mass/Vol] 12.4 g/dL 12.0 - 16.0 g/dL [facility] Immature granulocytes (Bld) [#/Vol] 0.07 10*3/uL [facility] Immature granulocytes/100 WBC (Bld) 0.70 % [facility] Comment on above: The IG parameter is the percentage of metamyelocytes, myelocytes and promyelocytes. An immature granulocyte count (IG) of 1% or more suggests the possibility of infection, an IG count of 3% is very likely related to an infection. Lymphocytes (Bld) [#/Vol] 2.55 10*3/uL [facility] Lymphocytes/100 WBC (Bld) 27.1 % [facility] MCH (RBC) [Entitic mass] 29.1 pg 26.0 - 34.0 pg [facility] MCHC (RBC) [Mass/Vol] 33.2 g/dL 31.0 - 37.0 g/dL [facility] MCV (RBC) [Entitic vol] 87.8 fL 80.0 - 100.0 fL [facility] Monocytes (Bld) [#/Vol] 0.57 10*3/uL [facility] Monocytes/100 WBC (Bld) 6.1 % [facility] Neutrophils (Bld) [#/Vol] 6.16 10*3/uL [facility] Neutrophils/100 WBC (Bld) 65.5 % [facility] Nucleated RBC (Bld) [#/Vol] 0.00 10*3/uL [facility] Nucleated RBC/100 WBC (Bld) [Ratio] 0.0 % [facility] Platelet mean volume (Bld) [Entitic vol] 11.8 fL 9.4 - 12.4 fL [facility] Platelets (Bld) [#/Vol] 165 10*3/uL [facility] RBC (Bld) [#/Vol] 4.26 10*6/uL [facility] WBC (Bld) [#/Vol] 9.41 10*3/uL [facility] Glucose (Bld) [Mass/Vol]on 0 03-22-2023 Glucose [Mass/Vol] 101 mg/dL High 65 - 99 mg/dL [facility] Interpretation and review of laboratory results Abnormal [facility] Glucose [Mass/Vol] 117 mg/dL High 65 - 99 mg/dL [facility] Interpretation and review of laboratory results Abnormal [facility] Glucose [Mass/Vol] 182 mg/dL High 65 - 99 mg/dL [facility] Interpretation and review of laboratory results Abnormal [facility] Glucose [Mass/Vol] 168 mg/dL High 65 - 99 [facility] and review of laboratory results Abnormal [facility] Glucose [Mass/Vol] 77 mg/dL 65 - 99 mg/dL [facility] Interpretation and review of laboratory results Normal [facility] Glucose [Mass/Vol] 42 mg/dL Low 65 - 99 mg/dL [facility] Interpret[facility] and review of laboratory results Abnormal [facility] Magnesium Levelon 03-22-2023 Magnesium [Mass/Vol] 2.0 mg/dL 1.6 - 2 .4 mg/dL [facility] Magnesium [Mass/Vol]on 03-22 Interpretation and review of laboratory results Normal [facility] No Panel Informationon 03-22 [facility] Phosphate [Mass/Vol]on 03-22 Interpretation and review of laboratory results Abnormal [facility] Phosphoruson 03-22-2023 Phosphate [Mass/Vol] 2.4 mg/dL Low 2.7 - 4 .5 mg/dL [facility] CBC panel Auto (Bld)on 03-21 Erythrocyte distribution width (RBC) [Entitic vol] 14.0 % 11.6 - 14.8 % [facility] Hematocrit (Bld) [Volume fraction] 35.7 % Low 36.0 - 46.0 % [facility] Hemoglobin (Bld) [Mass/Vol] 11.7 g/dL Low 12.0 - 16.0 g/dL [facility] Interpretation and review of laboratory results Abnormal [facility] MCH (RBC) [Entitic mass] 29.2 pg 26.0 - 34.0 pg [facility] MCHC (RBC) [Mass/Vol] 32.8 g/dL 31.0 - 37.0 g/dL [facility] MCV (RBC) [Entitic vol] 89.0 fL 80.0 - 100.0 fL [facility] Nucleated RBC (Bld) [#/Vol] 0.00 10*3/uL [facility] Nucleated RBC/100 WBC (Bld) [Ratio] 0.0 % [facility] Platelet mean volume (Bld) [Entitic vol] 12.9 fL High 9.4 - 12.4 fL [facility] Platelets (Bld) [#/Vol] 169 10*3/uL [facility] RBC (Bld) [#/Vol] 4.01 10*6/uL [facility] WBC (Bld) [#/Vol] 20.82 10*3/uL High [facility] Comprehensive metabolic 2000 panelon 03-21-2023 Albumin [Mass/Vol] 3.3 g/dL 3.2 - 5.2 g/dL [facility] ALP [Catalytic activity/Vol] 71 U/L 40 - 140 U/L [facility] ALT [Catalytic activity/Vol] 20 U/L 14 - 65 U/L [facility] Anion gap [Moles/Vol] 16 mmol/L 10 - 20 mmol/L [facility] AST [Catalytic activity/Vol] 10 U/L 0 - 45 U/L [facility] Bilirubin [Mass/Vol] 0.8 mg/dL 0.0 - 1 .3 mg/dL [facility] Calcium [Mass/Vol] 8.4 mg/dL 8.4 - 10. 2 mg/dL [facility] Chloride [Moles/Vol] 111 mmol/L High 98 - 10 8 mmol/L [facility] Creatinine [Mass/Vol] 0.81 mg/dL 0.40 - 1.10 mg/dL [facility] GFR/1.73 sq M.predicted CKD-EPI (S/P/Bld) [Vol rate/Area] 102 - PINF [facility] Comment on above: Estimated GFR was ca lculated using the 2020 CKD-EPI creatinine equation. Glucose [Mass/Vol] 162 mg/dL High 65 - 99 mg/dL [facility] HCO3 [Moles/Vol] 18 mmol/L Low 21 - 32 mmol/L [facility] Interpretation and review of laboratory results Abnormal [facility] Potassium [Moles/Vol] 3.6 mmol/L 3.5 - 5.1 mmol/L [facility] Protein [Mass/Vol] 6.3 g/dL 6.0 - 8.0 g/dL [facility] Sodium [Moles/Vol] 141 mmol/L 135 - 145 mmol/L [facility] Urea nitrogen [Mass/Vol] 11 mg/dL 8 - 25 mg/dL [facility] Urea nitrogen/Creatinine [Mass ratio] 13.6 mg/mg 10.0 - 20.0 [facility] has implemented the eGFR calculation approach that does not have a coefficient for race that conforms to the NKF-ASN Task Force Recommendations. [facility] Glucose (Bld) [Mass/Vol]on 0 03-21-2023 Glucose [Mass/Vol] 179 mg/dL High 65 - 99 mg/dL [facility] Interpretation and review of laboratory results Abnormal [facility] Glucose [Mass/Vol] 102 mg/dL High 65 - 99 mg/dL [facility] Interpretation and review of laboratory results Abnormal [facility] Glucose [Mass/Vol] 80 mg/dL 65 - 99 mg/dL [facility] Interpretation and review of laboratory results Normal [facility] Glucose [Mass/Vol] 113 mg/dL High 65 - 99 mg/dL [facility] Interpretation and review of laboratory results Abnormal [facility] Magnesiumon 03-21-2023 Magnesium [Mass/Vol] 2.4 mg/dL 1.6 - 2 .4 mg/dL [facility] Magnesium [Mass/Vol]on 07-25 -2023 Interpretation and review of laboratory results Normal [facility] No Panel Informationon 03-21 [facility] Phosphate [Mass/Vol]on 03-21 Interpretation and review of laboratory results Normal [facility] Phosphoruson 03-21-2023 Phosphate [Mass/Vol] 2.7 mg/dL 2.7 - 4 .5 mg/dL [facility] Basic metabolic 1997 panelon 03-20-2023 Anion gap [Moles/Vol] 12 mmol/L 10 - 20 mmol/L [facility] Chloride [Moles/Vol] 108 mmol/L 98 - 10 8 mmol/L [facility] Creatinine [Mass/Vol] 0.98 mg/dL 0.40 - 1.10 mg/dL [facility] GFR/1.73 sq M.predicted CKD-EPI (S/P/Bld) [Vol rate/Area] 81 - PINF [facility] Comment on above: Estimated GFR was ca lculated using the 2020 CKD-EPI creatinine equation. Glucose [Mass/Vol] 247 mg/dL High 65 - 99 mg/dL [facility] HCO3 [Moles/Vol] 24 mmol/L 21 - 32 mmol/L [facility] Potassium [Moles/Vol] 3.5 mmol/L 3.5 - 5.1 mmol/L [facility] Sodium [Moles/Vol] 140 mmol/L 135 - 145 mmol/L [facility] Urea nitrogen [Mass/Vol] 15 mg/dL 8 - 25 mg/dL [facility] Urea nitrogen/Creatinine [Mass ratio] 15.3 mg/mg 10.0 - 20.0 [facility] has implemented the eGFR calculation approach that does not have a coefficient for race that conforms to the NKF-ASN Task Force Recommendations. [facility] Basic metabolic 1999 panelon 03-20-2023 Anion gap [Moles/Vol] 13 mmol/L 10 - 20 mmol/L [facility] Calcium [Mass/Vol] 8.1 mg/dL Low 8.4 - 10. 2 mg/dL [facility] Chloride [Moles/Vol] 106 mmol/L 98 - 10 8 mmol/L [facility] Creatinine [Mass/Vol] 0.86 mg/dL 0.40 - 1.10 mg/dL [facility] GFR/1.73 sq M.predicted CKD-EPI (S/P/Bld) [Vol rate/Area] 95 - PINF [facility] Comment on above: Estimated GFR was ca lculated using the 2020 CKD-EPI creatinine equation. Glucose [Mass/Vol] 316 mg/dL High 65 - 99 mg/dL [facility] HCO3 [Moles/Vol] 21 mmol/L 21 - 32 mmol/L [facility] Interpretation and review of laboratory results Abnormal [facility] Potassium [Moles/Vol] 4.0 mmol/L 3.5 - 5.1 mmol/L [facility] Sodium [Moles/Vol] 136 mmol/L 135 - 145 mmol/L [facility] Urea nitrogen [Mass/Vol] 12 mg/dL 8 - 25 mg/dL [facility] Urea nitrogen/Creatinine [Mass ratio] 14.0 mg/mg 10.0 - 20.0 [facility] has implemented the eGFR calculation approach that does not have a coefficient for race that conforms to the NKF-ASN Task Force Recommendations. [facility] Beta HCG ( test) Ql on 03-20-2023 Interpretation and review of laboratory results Normal [facility] Negative: The result is less than or equal to 5 mIU/mL of HCG. [facility] Beta hydroxybutyrate [Moles/ Vol]on 03-20-2023 Interpretation and review of laboratory results Abnormal [facility] Beta-Hydroxybutyrateon 03-20 Beta hydroxybutyrate [Moles/Vol] 1.8 mmol/L High 0.0 - 0.3 mmol/L [facility] CBC Auto Differentialon 02-26 Basophils (Bld) [#/Vol] 0.04 10*3/uL [facility] Basophils/100 WBC (Bld) 0.4 % [facility] Eosinophils (Bld) [#/Vol] 0.03 10*3/uL [facility] Eosinophils/100 WBC (Bld) 0.3 % [facility] Erythrocyte distribution width (RBC) [Entitic vol] 13.7 % 11.6 - 14.8 % [facility] Hematocrit (Bld) [Volume fraction] 38.9 % 36.0 - 46.0 % [facility] Hemoglobin (Bld) [Mass/Vol] 13.0 g/dL 12.0 - 16.0 g/dL [facility] Immature granulocytes (Bld) [#/Vol] 0.08 10*3/uL [facility] Immature granulocytes/100 WBC (Bld) 0.80 % [facility] Comment on above: The IG parameter is the percentage of metamyelocytes, myelocytes and promyelocytes. An immature granulocyte count (IG) of 1% or more suggests the possibility of infection, an IG count of 3% is very likely related to an infection. Interpretation and review of laboratory results Abnormal [facility] Lymphocytes (Bld) [#/Vol] 2.45 10*3/uL [facility] Lymphocytes/100 WBC (Bld) 23.6 % [facility] MCH (RBC) [Entitic mass] 29.0 pg 26.0 - 34.0 pg [facility] MCHC (RBC) [Mass/Vol] 33.4 g/dL 31.0 - 37.0 g/dL [facility] MCV (RBC) [Entitic vol] 86.6 fL 80.0 - 100.0 fL [facility] Monocytes (Bld) [#/Vol] 0.62 10*3/uL [facility] Monocytes/100 WBC (Bld) 6.0 % [facility] Neutrophils (Bld) [#/Vol] 7.17 10*3/uL High [facility] Neutrophils/100 WBC (Bld) 68.9 % [facility] Nucleated RBC (Bld) [#/Vol] 0.00 10*3/uL [facility] Nucleated RBC/100 WBC (Bld) [Ratio] 0.0 % [facility] Platelet mean volume (Bld) [Entitic vol] 12.5 fL High 9.4 - 12.4 fL [facility] Platelets (Bld) [#/Vol] 160 10*3/uL [facility] RBC (Bld) [#/Vol] 4.49 10*6/uL [facility] WBC (Bld) [#/Vol] 10.39 10*3/uL [facility] CT ANGIOGRAM CHEST ABDOMEN P VIS 03-20-2023 [...] Note made of prior appendectomy surgical clips. [employer] Workstation ID: [id number] Dictated by: DAVID MOURA on MonMar 20, 2023 9:50:12 AM EDT Transcribed by: TANNER LOVETT on MonMar 20, 2023 9:59:46 AM EDT Finalized by: DAVID MOURA on MonMar 20, 2023 10:29:33 AM EDT Normal [place] [facility] Comment on above: Order Comment: Injur y/Trauma or Illness?:Illness/Other How long have you had these symptoms (acute/chronic)?:Acute Reason for exam?:chest and abd pain, vomiting Type of Exam?:Initial Additional signs and symptoms?: CT Angiogram Chest Abdomen P [facility] 03-20-2023 1. No acute thoracoabdominal aortic [...] Note made of prior appendectomy surgical clips. [employer] Workstation ID: [id number] [facility] EXAMINATION: CT ANGIOGRAM CHEST ABDOMEN PELVIS HISTORY: [...] Abdominal wall structures appear to be intact. [employer] David Kulkarni, DO - 03/20/2023 EXAMINATION: CT [...] appendectomy surgical clips. [employer] Workstation ID: [id number] [facility] Radiology Study observation (narrative) [facility] CT Angiogram Chest Abdomen P elvisOrdered By: David Moura on 03-20-2023 [facility] Work Phone: ECG 12 Leadon 03-20-2023 Siddharth Gagnon MD 03/20/2023 4:45 PM ECG 12 Lead Date/Time: 03/20/2023 4:45 PM Performed by: Siddharth Gagnon MD Authorized by: Mariel Gagnon MD Interpreted by ED attending physician Comparison: not compared with previous ECG Rhythm: sinus rhythm and sinus bradycardia BPM: 56 Conduction: conduction normal ST Segments: ST segments normal T Waves: T waves normal normal FL interval QT Interval: 514 Clinical impression: non-specific ECG and sinus bradycardia [facility] EKGon 03-20-2023 [facility] EKG 12-leadon 03-20-2023 Atrial Rate 56 BPM [facility] P Dana 9 degrees [facility] P-R Interval 130 ms [facility] Q-T Interval 514 ms [facility] QRS Duration 108 ms [facility] QTC Calculation (Bezet) 496 ms [facility] R Dana 51 degrees [facility] T Dana 42 degrees [facility] Ventricular Rate 56 BPM [facility] Sinus bradycardia [facility] sinus arrhythmia Prolonged QT Abnormal ECG ECG Cart Interpretation see physician note for interpretation. Confirmed by Zita Dozier ([id number]) on 03/20/2023 1:39:42 PM [facility] Atrial Rate 73 BPM [facility] P Dana 45 degrees [facility] P-R Interval 136 ms [facility] Q-T Interval 398 ms [facility] QRS Duration 92 ms [facility] QTC Calculation (Bezet) 438 ms [facility] R Dana 83 degrees [facility] T Dana 53 degrees [facility] Ventricular Rate 73 BPM [facility] th Mariel Gagnon M D 03/21/2023 2:39 PM EKG 12-lead Date/Time: 03/20/2023 6:02 AM Performed by: Mariel Gagnon MD Authorized by: Mariel Gagnon MD Interpreted by ED attending physician Rhythm: sinus rhythm BPM: 73 QRS axis: normal Clinical impression: normal ECG MUSE [facility] Glucose (Bld) [Mass/Vol]on 0 03-20-2023 Glucose [Mass/Vol] 245 mg/dL High 65 - 99 mg/dL [facility] Interpretation and review of laboratory results Abnormal [facility] Glucose [Mass/Vol] 284 mg/dL High 65 - 99 mg/dL [facility] Interpretation and review of laboratory results Abnormal [facility] Glucose [Mass/Vol] 406 mg/dL Critically high 65 - 99 mg/d L [facility] Interpretation and review of laboratory results Abnormal [facility] Critical result acte d upon time of test. Test performed at bedside. [facility] HCG (QUALITATIVE)on 03-20-20 23 Beta HCG ( test) Ql Negative Negative [facility] HbA1c (Bld) [Mass fraction]O rdered By: Destinee Baez on 03-20-2023 Average glucose Estimated from glycated hemoglobin (Bld) [Mass/Vol] 160 mg/dL High 68 - 114 mg/dL [facility] Interpretation and review of laboratory results Abnormal [facility] Normal: 4.0% - 5.6% Increased risk for diabetes: 5.7% - 6.4% Diabetes: >= 6.5% Pediatrics: No established reference range Estimated average glucose: 68-114 mg/dL [facility] Hemoglobin [id number] By: Georgina Baez on 03-20-2023 HbA1c (Bld) [Mass fraction] 7.2 % High 4.0 - 5.6 % [facility] Hepatic function 2000 panelo n 03-20-2023 Albumin [Mass/Vol] 3.8 g/dL 3.2 - 5.2 g/dL [facility] ALP [Catalytic activity/Vol] 84 U/L 40 - 140 U/L [facility] ALT [Catalytic activity/Vol] 26 U/L 14 - 65 U/L [facility] AST [Catalytic activity/Vol] 13 U/L 0 - 45 U/L [facility] Bilirubin [Mass/Vol] 0.6 mg/dL 0.0 - 1 .3 mg/dL [facility] Bilirubin.conjugated [Mass/Vol] 0.1 mg/dL 0.0 - 0.4 mg/dL [facility] Interpretation and review of laboratory results Normal [facility] Protein [Mass/Vol] 7.2 g/dL 6.0 - 8.0 g/dL [facility] Light Blue Topon 03-20-2023 Extra Tube Hold for add-ons. [facility] Comment on above: Auto resulted. [facility] Lipaseon 03-20-2023 Lipase [Catalytic activity/Vol] 53 U/L Low 73 - 393 U/L [facility] Magnesium Levelon 03-20-2023 Magnesium [Mass/Vol] 1.8 mg/dL 1.6 - 2 .4 mg/dL [facility] Magnesium [Mass/Vol]on 03-20 Interpretation and review of laboratory results Normal [facility] No Panel Informationon 03-20 Interpretation and review of laboratory results Abnormal [facility] UrinalysisOrdered By: Alysha Ramos on 03-20-2023 Bacteria Auto Ql (U) None Seen None Seen /hpf [facility] Bilirubin Ql (U) Negative Negative [facility] Clarity Refractometry automated (U) Cloudy Abnormal Clear [facility] Color (U) Yellow Colorless, Yellow [facility] Glucose Auto test strip (U) [Mass/Vol] >=500 Abnormal Negative mg/dL [facility] Hemoglobin Auto test strip Ql (U) Negative Negative [facility] Interpretation and review of laboratory results Abnormal [facility] Ketones (U) [Mass/Vol] mg/dL Abnormal Negative mg/d L [facility] Leukocyte esterase Auto test strip Ql (U) Negative Negative [facility] h Mucus Auto (Urine sed) [#/Area] Rare None Seen, Rare /lpf [facility] Nitrite Auto test strip Ql (U) Negative Negative [facility] pH (U) 7.0 [pH] 5.0 - 7.0 [facility] Protein (U) [Mass/Vol] Negative Negative mg/d L [facility] RBC Auto (Urine sed) [#/Area] 1 [facility] Specific gravity (U) [Rel density] 1.023 1.005 - 1.025 [facility] Urobilinogen (U) [Mass/Vol] mg/dL NINF - 2.0 mg/dL [facility] WBC Auto (Urine sed) [#/Area] 3 [facility] Microscopic examination is performed on all urinalysis samples and only positive findings are reported. The test for blood on the chemical analytic portion of urinalysis may also be positive due to hemoglobinuria and myoglobinuria and if red blood cells are present they are quantified by microscopic examination. [facility] CNPNon 02-26-[address] [facility] Telephone (AKURFL) KATHLEEN VILLA ([id number]) 1995 F CHT Date Time Provider Department [...] Anion gap [Moles/Vol] 8 mmol/L Normal 5-16 [facility] Comment on above: Order Comment: Speci men Type: BLOOD SPECIMEN Ordering Facility: [facility] Address: [address] [place] [address] [place], [place] [address] Performed By: #### 3 1201-7, 5195-3, 67551-0, SYPH #### [facility] CLIA [id number] [address] [place], [place] [address] [place] Calcium [Mass/Vol] 8.3 mg/dL Low 8.5-10.5 [facility] Comment on above: Order Comment: Speci men Type: BLOOD SPECIMEN Ordering Facility: [facility] Address: [address] [place] [address] Performed By: #### 3 1201-7, 5195-3, 48292-5, SYPH #### [facility] CLIA [id number] [address] [place], [place] [address] [place] Chloride [Moles/Vol] 106 mmol/L Normal 98-107 [facility] Comment on above: Order Comment: Speci men Type: BLOOD SPECIMEN Ordering Facility: [facility] Address: [address] [place] [address] Performed By: #### 3 1201-7, 5195-3, 62074-5, SYPH #### [facility] CLIA [id number] [address] [place] [address] [place] CO2 [Moles/Vol] 27 mmol/L Normal 21-32 [facility] Comment on above: Order Comment: Speci men Type: BLOOD SPECIMEN Ordering Facility: [facility] Address: [address] [place] [address] Performed By: #### 3 1201-7, 5195-3, 73615-6, SYPH #### [facility] CLIA [id number] [address] [place], [place] [address] [place] Creatinine [Mass/Vol] 0.58 mg/dL Normal 0.51-0.95 [facility] Comment on above: Order Comment: Speci men Type: BLOOD SPECIMEN Ordering Facility: [facility] Address: [address] [place] [address] Result Comment: Cleopatra ents receiving either N-Acetylcysteine (NAC) or Metamizole prior to venipuncture, may have falsely depressed results. Performed By: #### 3 1201-7, 5195-3, 58028-6, SYPH #### [facility] CLIA [id number] [address] [place], [place] [address] [place] ESTIMATED GLOMERULAR FILTRATION RATE 127 mL/min/1.73m??? Normal >=60 [facility] Comment on above: Order Comment: Jon russ Type: BLOOD SPECIMEN Ordering Facility: [facility] Address: [address] [place] [address] Result Comment: Janett mated Glomerular Filtration Rate [...] GFR. Performed By: #### 3 1201-7, 5195-3, 84367-0, SYPH #### [facility] CLIA [id number] [address] [place], [place] [address] [place] Glucose [Mass/Vol] 271 mg/dL High 70-100 [facility] Comment on above: Order Comment: Jon russ Type: BLOOD SPECIMEN Ordering Facility: [facility] Address: [address] [place] [address] Result Comment: The [place] Diabetes Association (ADA) provides guidance for cutoff [...] Standards of Medical Care in Diabetes 2016, [place] [employer]. Diabetes Care. 2016.39(Suppl 1). Results may be falsely elevated after the administration of Sulfapyridine. Results may be falsely depressed after the administration of Sulfasalazine. Performed By: #### 3 1201-7, 5195-3, 59801-7, SYPH #### [facility] CLIA [id number] [address] [place] [address] [place] Potassium [Moles/Vol] 3.4 mmol/L Low 3.5-5.1 [facility] Comment on above: Order Comment: Speci men Type: BLOOD SPECIMEN Ordering Facility: [facility] Address: [address] [place] [address] Performed By: #### 3 1201-7, 5-3, 17237-2, SYPH #### [facility] CLIA [id number] [address] [place] [address] [place] Sodium [Moles/Vol] 141 mmol/L Normal 136-145 [facility] Comment on above: Order Comment: Speci men Type: BLOOD SPECIMEN Ordering Facility: [facility] Address: [address] [place] [address] Performed By: #### 3 1201-7, 5194-3, 91914-3, SYPH #### [facility] CLIA [id number] [address] [place] [address] [place] Urea nitrogen [Mass/Vol] 6 mg/dL Low 7-26 [facility] Comment on above: Order Comment: Speci men Type: BLOOD SPECIMEN Ordering Facility: [facility] Address: [address] [place] [address] Performed By: #### 3 1201-7, 5-3, 56593-4, SYPH #### [facility] CLIA [id number] [address] [place] [address] [place] Anion gap [Moles/Vol] 7 mmol/L Normal 5-16 [facility] Comment on above: Order Comment: Speci men Type: BLOOD SPECIMEN Ordering Facility: [facility] Address: [address] [place] [address] Performed By: #### 3 1201-7, 5195-3, 11844-8, SYPH #### [facility] CLIA [id number] [address] [place] [address] [place] Calcium [Mass/Vol] 8.0 mg/dL Low 8.5-10.5 [facility] Comment on above: Order Comment: Speci men Type: BLOOD SPECIMEN Ordering Facility: [facility] Address: [address] [place] [address] Performed By: #### 3 1201-7, 5195-3, 08435-2, SYPH #### [facility] CLIA [id number] [address] [place] [address] [place] Chloride [Moles/Vol] 106 mmol/L Normal 98-107 [facility] Comment on above: Order Comment: Speci men Type: BLOOD SPECIMEN Ordering Facility: [facility] Address: [address] [place] [address] Performed By: #### 3 1201-7, 5195-3, 41710-6, SYPH #### [facility] CLIA [id number] [address] [place] [address] [place] CO2 [Moles/Vol] 27 mmol/L Normal 21-32 [facility] Comment on above: Order Comment: Speci men Type: BLOOD SPECIMEN Ordering Facility: [facility] Address: [address] [place] [address] Performed By: #### 3 1201-7, 5195-3, 92898-5, SYPH #### [facility] CLIA [id number] [address] [place] [address] [place] Creatinine [Mass/Vol] 0.61 mg/dL Normal 0.51-0.95 [facility] Comment on above: Order Comment: Speci men Type: BLOOD SPECIMEN Ordering Facility: [facility] Address: [address] [place] [address] Result Comment: Cleopatra ents receiving either N-Acetylcysteine (NAC) or Metamizole prior to venipuncture, may have falsely depressed results. Performed By: #### 3 1201-7, 5195-3, 33148-9, SYPH #### [facility] CLIA [id number] [address] [place] [address] [place] ESTIMATED GLOMERULAR FILTRATION RATE 125 mL/min/1.73m??? Normal >=60 [facility] Comment on above: Order Comment: Jon russ Type: BLOOD SPECIMEN Ordering Facility: [facility] Address: [address] [place], [place] [address] Result Comment: Janett mated Glomerular Filtration Rate [...] GFR. Performed By: #### 3 1201-7, 5195-3, 50325-9, SYPH #### [facility] CLIA [id number] [address] [place] [address] [place] Glucose [Mass/Vol] 269 mg/dL High 70-100 [facility] Comment on above: Order Comment: Jon russ Type: BLOOD SPECIMEN Ordering Facility: [facility] Address: [address] [place] [address] Result Comment: The [place] Diabetes Association (ADA) provides guidance for cutoff [...] Standards of Medical Care in Diabetes 2016, [place] [employer]. Diabetes Care. 2016.39(Suppl 1). Results may be falsely elevated after the administration of Sulfapyridine. Results may be falsely depressed after the administration of Sulfasalazine. Performed By: #### 3 1201-7, 5195-3, 83158-8, SYPH #### [facility] CLIA [id number] [address] [place] [address] [place] Potassium [Moles/Vol] 3.5 mmol/L Normal 3.5-5.1 [facility] Comment on above: Order Comment: Speci men Type: BLOOD SPECIMEN Ordering Facility: [facility] Address: [address] [place] [address] Performed By: #### 3 1201-7, 5195-3, 82663-8, SYPH #### [facility] CLIA [id number] [address] [place] [address] [place] Sodium [Moles/Vol] 140 mmol/L Normal 136-145 [facility] Comment on above: Order Comment: Speci men Type: BLOOD SPECIMEN Ordering Facility: [facility] Address: [address] [place] [address] Performed By: #### 3 1201-7, 5195-3, 61953-7, SYPH #### [facility] [place] [id number] [address] [place] [address] [place] Urea nitrogen [Mass/Vol] 6 mg/dL Low 7-26 [facility] Comment on above: Order Comment: Speci men Type: BLOOD SPECIMEN Ordering Facility: [facility] Address: [address] [place] [address] Performed By: #### 3 1201-7, 5195-3, 82521-3, SYPH #### [facility] CLIA [id number] [address] [place] [address] [place] CBC W Auto Differential pane l (Bld)on 02-04-2023 Basophils (Bld) [#/Vol] 0.04 10*3/uL Normal <0.11 [facility] Comment on above: Order Comment: Speci men Type: BLOOD SPECIMEN Ordering Facility: [facility] Address: [address] [place] [address] Performed By: #### 3 1201-7, 5195-3, 38838-5, SYPH #### [facility] CLIA [id number] [address] [place] [address] [place] Basophils/100 WBC (Bld) 0.4 % Normal [facility] Comment on above: Order Comment: Speci men Type: BLOOD SPECIMEN Ordering Facility: [facility] Address: [address] [place] [address] Performed By: #### 3 1201-7, 5195-3, 81150-4, SYPH #### [facility] CLIA [id number] [address] [place] [address] [place] Differential cell count method Nom (Bld) Auto Normal [facility] Comment on above: Order Comment: Speci men Type: BLOOD SPECIMEN Ordering Facility: [facility] Address: [address] [place] [address] Performed By: #### 3 1201-7, 5195-3, 14319-0, SYPH #### [facility] CLIA [id number] [address] [place] [address] [place] Eosinophils (Bld) [#/Vol] 0.04 10*3/uL Normal <0.46 [facility] Comment on above: Order Comment: Speci men Type: BLOOD SPECIMEN Ordering Facility: [facility] Address: [address] [place] [address] Performed By: #### 3 1201-7, 5-3, 32418-3, SYPH #### [facility] CLIA [id number] [address] [place] [address] [place] Eosinophils/100 WBC (Bld) 0.4 % Normal [facility] Comment on above: Order Comment: Speci men Type: BLOOD SPECIMEN Ordering Facility: [facility] Address: [address] [place] [address] Performed By: #### 3 1201-7, 5-3, 16334-1, SYPH #### [facility] CLIA [id number] [address] [place] [address] [place] Erythrocyte distribution width (RBC) [Ratio] 13.3 % Normal 11.5-15.0 [facility] Comment on above: Order Comment: Speci men Type: BLOOD SPECIMEN Ordering Facility: [facility] Address: [address] [address] Performed By: #### 3 1201-7, 5195-3, 51746-3, SYPH #### [facility] CLIA [id number] [address] [place] [address] [place] Hematocrit (Bld) [Volume fraction] 34.5 % Low 36.0-46.0 [facility] Comment on above: Order Comment: Speci men Type: BLOOD SPECIMEN Ordering Facility: [facility] Address: [address] [address] Performed By: #### 3 1201-7, 5195-3, 99510-7, SYPH #### [facility] CLIA [id number] [address] [place] [address] [place] Hemoglobin (Bld) [Mass/Vol] 11.6 g/dL Normal 11.5-15.5 [facility] Comment on above: Order Comment: Speci men Type: BLOOD SPECIMEN Ordering Facility: [facility] Address: [address] [address] Performed By: #### 3 1201-7, 5195-3, 76295-3, SYPH #### [facility] CLIA [id number] [address] [place] [address] [place] Immature granulocytes (Bld) [#/Vol] 0.10 10*3/uL High <0.10 [facility] Comment on above: Order Comment: Speci men Type: BLOOD SPECIMEN Ordering Facility: [facility] Address: [address] [address] Performed By: #### 3 1201-7, 5195-3, 05920-5, SYPH #### [facility] CLIA [id number] [address] [place] [address] [place] Immature granulocytes/100 WBC (Bld) 0.9 % Normal [facility] Comment on above: Order Comment: Speci men Type: BLOOD SPECIMEN Ordering Facility: [facility] Address: [address] [place] [address] Performed By: #### 3 1201-7, 5195-3, 25936-2, SYPH #### [facility] CLIA [id number] [address] [place], [place] [address] [place] Lymphocytes (Bld) [#/Vol] 2.41 10*3/uL Normal 1.00-4.00 [facility] Comment on above: Order Comment: Speci men Type: BLOOD SPECIMEN Ordering Facility: [facility] Address: [address] [address] Performed By: #### 3 1201-7, 5195-3, 34633-0, SYPH #### [facility] CLIA [id number] [address] [place] [address] [place] Lymphocytes/100 WBC (Bld) 22.3 % Normal [facility] Comment on above: Order Comment: Speci men Type: BLOOD SPECIMEN Ordering Facility: [facility] Address: [address] [address] Performed By: #### 3 1201-7, 5195-3, 24820-5, SYPH #### [facility] CLIA [id number] [address] [place] [address] [place] MCH (RBC) [Entitic mass] 29.1 pg Normal 26.0-34.0 [facility] Comment on above: Order Comment: Speci men Type: BLOOD SPECIMEN Ordering Facility: [facility] Address: [address] Performed By: #### 3 1201-7, 5195-3, 13419-2, SYPH #### [facility] CLIA [id number] [address] [place] [address] [place] MCHC (RBC) [Mass/Vol] 33.6 g/dL Normal 30.5-36.0 [facility] Comment on above: Order Comment: Speci men Type: BLOOD SPECIMEN Ordering Facility: [facility] Address: [address] [address] Performed By: #### 3 1201-7, 5194-3, 38351-2, SYPH #### [facility] CLIA [id number] [address] [place], [place] [address] [place] MCV (RBC) [Entitic vol] 86.5 fL Normal 80.0-100.0 [facility] Comment on above: Order Comment: Speci men Type: BLOOD SPECIMEN Ordering Facility: [facility] Address: [address] [place] [address] Performed By: #### 3 1201-7, 5194-3, 08318-4, SYPH #### [facility] CLIA [id number] [address] [place] [address] [place] Monocytes (Bld) [#/Vol] 0.70 10*3/uL Normal <0.87 [facility] Comment on above: Order Comment: Speci men Type: BLOOD SPECIMEN Ordering Facility: [facility] Address: [address] [place] [address] Performed By: #### 3 1201-7, 3, , SYPH #### [facility] CLIA [id number] [address] [place] [address] [place] [place] Monocytes/100 WBC (Bld) 6.5 % Normal [facility] Comment on above: Order Comment: Speci men Type: BLOOD SPECIMEN Ordering Facility: [facility] Address: [address] [place] [address] Performed By: #### 3 1201-7, 3, , SYPH #### [facility] CLIA [id number] [address] [place] [address] [place] Neutrophils (Bld) [#/Vol] 7.54 10*3/uL High 1.45-7.50 [facility] Comment on above: Order Comment: Speci men Type: BLOOD SPECIMEN Ordering Facility: [facility] Address: [address] [place] [address] Performed By: #### 3 1201-7, 5-3, 69607-6, SYPH #### [facility] CLIA [id number] [address] [place] [address] [place] Neutrophils/100 WBC (Bld) 69.5 % Normal [facility] Comment on above: Order Comment: Speci men Type: BLOOD SPECIMEN Ordering Facility: [facility] Address: [address] [place] [address] Performed By: #### 3 1201-7, 5195-3, 75644-5, SYPH #### [facility] CLIA [id number] [address] [place] [address] [place] Nucleated RBC (Bld) [#/Vol] 10*3/uL Normal <0.01 [facility] Comment on above: Order Comment: Speci men Type: BLOOD SPECIMEN Ordering Facility: [facility] Address: [address] [place] [address] Performed By: #### 3 1201-7, 5195-3, 29181-4, SYPH #### [facility] CLIA [id number] [address] [place] [address] [place] Nucleated RBC/100 WBC (Bld) [Ratio] 0.0 /100 WBC Normal [facility] Comment on above: Order Comment: Speci men Type: BLOOD SPECIMEN Ordering Facility: [facility] Address: [address] [place] [address] Performed By: #### 3 1201-7, 5195-3, 81565-5, SYPH #### [facility] CLIA [id number] [address] [place] [address] [place] Platelet mean volume (Bld) [Entitic vol] 11.7 fL Normal 9.0-12.7 [facility] Comment on above: Order Comment: Speci men Type: BLOOD SPECIMEN Ordering Facility: [facility] Address: [address] [place] [address] Performed By: #### 3 1201-7, 5195-3, 26575-8, SYPH #### [facility] CLIA [id number] [address] [place] [address] [place] Platelets (Bld) [#/Vol] 163 10*3/uL Normal 150-400 [facility] Comment on above: Order Comment: Speci men Type: BLOOD SPECIMEN Ordering Facility: [facility] Address: [place] [address] Performed By: #### 3 1201-7, 5195-3, 40258-3, SYPH #### [facility] CLIA [id number] [address] [place], [place] [address] [place] RBC (Bld) [#/Vol] 3.99 10*6/uL Normal 3.90-5.20 [facility] Comment on above: Order Comment: Speci men Type: BLOOD SPECIMEN Ordering Facility: [facility] Address: [address] [address] Performed By: #### 3 1201-7, 5195-3, 90299-2, SYPH #### [facility] CLIA [id number] [address] [place], [place] [address] [place] WBC (Bld) [#/Vol] 10.83 10*3/uL Normal 3.70-11.00 [facility] Comment on above: Order Comment: Speci men Type: BLOOD SPECIMEN Ordering Facility: [facility] Address: [place] [address] Performed By: #### 3 1201-7, 5195-3, 27732-2, SYPH #### [facility] CLIA [id number] [address] [place], [place] [address] [place] CNDSon 02-04-2023 CNDS HNO ID: [id number] Author: David Burnett DO Service: Hospital Medicine [...] summary. SPECIALITY SERVICES SEEN DURING HOSPITALIZATION: hospitalist, graduate teaching assistant CHIEF COMPLAINT: DKA REASON FOR HOSPITALIZATION: DKA, gastroparesis FINAL DIAGNOSIS: DKA, gastroparesis OPERATIONS/PROCEDURES DURING HOSPITALIZATION: HOSPITAL COURSE: 27-year-old white female who presented 2 days ago on 01/31 secondary to nausea and vomiting at home. Patient has a known history of diabetic gastroparesis. She follows in [facility]. She was admitted to [place]. Unfortunately she has not been tolerating p.o. 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 Follow up with PCP in one [...] hyperglycemia, with long-term current use of insulin ([facility]); Insulin pump status prochlorperazine (COMPAZINE) 10 mg [...] hyperglycemia, with long-term current use of insulin ([facility]); Insulin p (more content not included)... [facility] ALLIED HEALTHon 02-03-2023 ALLIED HEALTH HNO ID: [id number] Author: Chaplain Craig Service: Spiritual Care Author Type: [employer]ics Systems Integration Specialist Type: Allied Health Filed: 02/03/2023 11:39 AM Note Text: SPIRITUAL CARE PROGRESS NOTE SERVICE DATE: 02/03/2023 SERVICE TIME: 10:35 am While rounding in ICU, attempted to provided spiritual presence to patient. Patient was busy . No family was present. A lactation specialist will follow up. To contact the Spiritual Care Department: Please call [phone]. SIGNATURE: Chaplain Craig PATIENT NAME: Kathleen Villa DATE: February 03, 2023 TIME: 11:37 AM PAGER/CONTACT #: [phone] Normal [facility] Basic metabolic 2000 panelon 02-03-2023 Anion gap [Moles/Vol] 9 mmol/L Normal 5-16 [facility] Comment on above: Order Comment: Speci men Type: BLOOD SPECIMEN Ordering Facility: [facility] Address: [address] [place] [address] Performed By: #### 3 1201-7, 5195-3, 80904-0, SYPH #### [facility] CLIA [id number] [address] [place] [address] [place] Calcium [Mass/Vol] 8.1 mg/dL Low 8.5-10.5 [facility] Comment on above: Order Comment: Speci men Type: BLOOD SPECIMEN Ordering Facility: [facility] Address: [address] [place] [address] Performed By: #### 3 1201-7, 5195-3, 53643-0, SYPH #### [facility] CLIA [id number] [address] [place] [address] [place] Chloride [Moles/Vol] 112 mmol/L High 98-107 [facility] Comment on above: Order Comment: Speci men Type: BLOOD SPECIMEN Ordering Facility: [facility] Address: [address] [place] [address] Performed By: #### 3 1201-7, 5195-3, 00965-6, SYPH #### [facility] CLIA [id number] [address] [place] [address] [place] CO2 [Moles/Vol] 22 mmol/L Normal 21-32 [facility] Comment on above: Order Comment: Jon russ Type: BLOOD SPECIMEN Ordering Facility: [facility] Address: [address] [place] [address] Performed By: #### 3 1201-7, 5195-3, 67921-0, SYPH #### [facility] CLIA [id number] [address] [place] [address] [place] Creatinine [Mass/Vol] 0.57 mg/dL Normal 0.51-0.95 [facility] Comment on above: Order Comment: Jon russ Type: BLOOD SPECIMEN Ordering Facility: [facility] Address: [address] [place] [address] Result Comment: Cleopatra ents receiving either N-Acetylcysteine (NAC) or Metamizole prior to venipuncture, may have falsely depressed results. Performed By: #### 3 1201-7, 5195-3, 61362-8, SYPH #### [facility] CLIA [id number] [address] [place] [address] [place] ESTIMATED GLOMERULAR FILTRATION RATE 127 mL/min/1.73m??? Normal >=60 [facility] Comment on above: Order Comment: Jon russ Type: BLOOD SPECIMEN Ordering Facility: [facility] Address: [address] [place] [address] Result Comment: Janett mated Glomerular Filtration Rate [...] GFR. Performed By: #### 3 1201-7, 5195-3, 62774-5, SYPH #### [facility] CLIA [id number] [address] [place], [place] [address] [place] Glucose [Mass/Vol] 135 mg/dL High 70-100 [facility] Comment on above: Order Comment: Jon russ Type: BLOOD SPECIMEN Ordering Facility: [facility] Address: [address] [place] [address] Result Comment: The [place] Diabetes Association (ADA) provides guidance for cutoff [...] Standards of Medical Care in Diabetes 2016, [place] [employer] Association. Diabetes Care. 2016.39(Suppl 1). Results may be falsely elevated after the administration of Sulfapyridine. Results may be falsely depressed after the administration of Sulfasalazine. Performed By: #### 3 1201-7, 5195-3, 87553-8, SYPH #### [facility] CLIA [id number] [address] [place] [address] [place] Potassium [Moles/Vol] 4.0 mmol/L Normal 3.5-5.1 [facility] Comment on above: Order Comment: Jon russ Type: BLOOD SPECIMEN Ordering Facility: [facility] Address: [address] [place] [address] Performed By: #### 3 1201-7, 5195-3, 16292-4, SYPH #### [facility] CLIA [id number] [address] [place] [address] [place] Sodium [Moles/Vol] 143 mmol/L Normal 136-145 [facility] Comment on above: Order Comment: Jon russ Type: BLOOD SPECIMEN Ordering Facility: [facility] Address: [address] [place] [address] Performed By: #### 3 1201-7, 5195-3, 84403-7, SYPH #### [facility] CLIA [id number] [address] [place] [address] [place] Urea nitrogen [Mass/Vol] 8 mg/dL Normal 7- [facility] Comment on above: Order Comment: Speci men Type: BLOOD SPECIMEN Ordering Facility: [facility] Address: [place] [address] Performed By: #### 3 1201-7, 5195-3, 29715-2, SYPH #### [facility] CLIA [id number] [address] [id number] [facility] CASE MGT INIT ASSESon 2022 CASE MGT INIT ASSES HNO ID: [id number] Author: MICHELLE Tobar Service: Social Work Author Type: Retail Pricing Coordinator Type: Care Mgt Initial Assessment Filed: 02/03/2023 2:35 PM Note Text: CARE MANAGEMENT: ASSESSMENT AND DISCHARGE PLAN SERVICE DATE: February 03, 2023 SERVICE TIME: 2:31 PM PCP: Vivi Smith MD Primary Contact: Extended Emergency Contact Information Primary Emergency Contact: Rene Christie Lerna Relation: Significant other Admission Status: Inpatient Insurance Provider: [facility] Discharge Planning requested by: Per Department Practice Potential Transition Plans Home Advance Directives Current Advance Directive: None Order Selector Attempted to Assist with AD Completion: Yes [...] Be able to go home, General wellness Holbrook of Choice Explained: Holbrook of Choice Given: No Reason Not Given: [...] Patient reports Rene will provide transport at de. SIGNATURE: MICHELLE Tobar PATIENT NAME: Kathleen Villa DATE: February 03, 2023 TIME: 2:31 PM CONTACT #: [phone] Normal [facility] CBC W Auto Differential pane l (Bld)on 02-03-2023 Basophils (Bld) [#/Vol] 0.05 10*3/uL Normal <0.11 [facility] Comment on above: Order Comment: Jon russ Type: BLOOD SPECIMEN Ordering Facility: [facility] Address: [address] [place] [address] Performed By: #### 3 1201-7, 5195-3, 42880-3, SYPH #### [facility] CLIA [id number] [address] [place] [address] [place] Basophils/100 WBC (Bld) 0.3 % Normal [facility] Comment on above: Order Comment: Jon russ Type: BLOOD SPECIMEN Ordering Facility: [facility] Address: [address] [place] [address] Performed By: #### 3 1201-7, 5195-3, 73307-6, SYPH #### [facility] CLIA [id number] [address] [place] [address] [place] Differential cell count method Nom (Bld) Auto Normal [facility] Comment on above: Order Comment: Speci men Type: BLOOD SPECIMEN Ordering Facility: [facility] Address: [address] [place] [address] Performed By: #### 3 1201-7, 5195-3, 97512-6, SYPH #### [facility] CLIA [id number] [address] [place] [address] [place] Eosinophils (Bld) [#/Vol] 10*3/uL Normal <0.46 [facility] Comment on above: Order Comment: Speci men Type: BLOOD SPECIMEN Ordering Facility: [facility] Address: [address] [place] [address] Performed By: #### 3 1201-7, 5195-3, 76781-8, SYPH #### [facility] CLIA [id number] [address] [place] [address] [place] Eosinophils/100 WBC (Bld) 0.0 % Normal [facility] Comment on above: Order Comment: Speci men Type: BLOOD SPECIMEN Ordering Facility: [facility] Address: [address] [place] [address] Performed By: #### 3 1201-7, 5195-3, 55214-4, SYPH #### [facility] CLIA [id number] [address] [place] [address] [place] Erythrocyte distribution width (RBC) [Ratio] 13.5 % Normal 11.5-15.0 [facility] Comment on above: Order Comment: Speci men Type: BLOOD SPECIMEN Ordering Facility: [facility] Address: [address] [place] [address] Performed By: #### 3 1201-7, 5195-3, 95310-7, SYPH #### [facility] CLIA [id number] [address] [place] [address] [place] Hematocrit (Bld) [Volume fraction] 37.7 % Normal 36.0-46.0 [facility] Comment on above: Order Comment: Speci men Type: BLOOD SPECIMEN Ordering Facility: [facility] Address: [address] [address] Performed By: #### 3 1201-7, 5195-3, 66858-2, SYPH #### [facility] CLIA [id number] [address] [place], [place] [address] [place] Hemoglobin (Bld) [Mass/Vol] 11.8 g/dL Normal 11.5-15.5 [facility] Comment on above: Order Comment: Speci men Type: BLOOD SPECIMEN Ordering Facility: [facility] Address: [address] [address] Performed By: #### 3 1201-7, 5195-3, 18971-8, SYPH #### [facility] CLIA [id number] [address] [place] [address] [place] Immature granulocytes (Bld) [#/Vol] 0.16 10*3/uL High <0.10 [facility] Comment on above: Order Comment: Speci men Type: BLOOD SPECIMEN Ordering Facility: [facility] Address: [address] [place] [address] Performed By: #### 3 1201-7, 5195-3, 50618-3, SYPH #### [facility] CLIA [id number] [address] [place] [address] [place] Immature granulocytes/100 WBC (Bld) 1.0 % Normal [facility] Comment on above: Order Comment: Speci men Type: BLOOD SPECIMEN Ordering Facility: [facility] Address: [address] Performed By: #### 3 1201-7, 5195-3, 70150-5, SYPH #### [facility] CLIA [id number] [address] [place], [place] [address] [place] Lymphocytes (Bld) [#/Vol] 1.76 10*3/uL Normal 1.00-4.00 [facility] Comment on above: Order Comment: Speci men Type: BLOOD SPECIMEN Ordering Facility: [facility] Address: [address] [address] Performed By: #### 3 1201-7, 5195-3, 59291-9, SYPH #### [facility] CLIA [id number] [address] [place] [address] [place] [facility] Lymphocytes/100 WBC (Bld) 10.7 % Normal [facility] Comment on above: Order Comment: Speci men Type: BLOOD SPECIMEN Ordering Facility: [facility] Address: [address] [address] Performed By: #### 3 1201-7, 5195-3, 45060-0, SYPH #### [facility] CLIA [id number] [address] [place] [address] [place] MCH (RBC) [Entitic mass] 29.7 pg Normal 26.0-34.0 [facility] Comment on above: Order Comment: Speci men Type: BLOOD SPECIMEN Ordering Facility: [facility] Address: [address] [address] Performed By: #### 3 1201-7, 5195-3, 78137-9, SYPH #### [facility] CLIA [id number] [address] [place] [address] [place] MCHC (RBC) [Mass/Vol] 31.3 g/dL Normal 30.5-36.0 [facility] Comment on above: Order Comment: Speci men Type: BLOOD SPECIMEN Ordering Facility: [facility] Address: [address] [address] Performed By: #### 3 1201-7, 5195-3, 11327-8, SYPH #### [facility] CLIA [id number] [address] [place] [address] [place] MCV (RBC) [Entitic vol] 95.0 fL Normal 80.0-100.0 [facility] Comment on above: Order Comment: Speci men Type: BLOOD SPECIMEN Ordering Facility: [facility] Address: [address] [place] [address] Performed By: #### 3 1201-7, 5195-3, 85138-1, SYPH #### [facility] CLIA [id number] [address] [place], [place] [address] [place] Monocytes (Bld) [#/Vol] 0.77 10*3/uL Normal <0.87 [facility] Comment on above: Order Comment: Speci men Type: BLOOD SPECIMEN Ordering Facility: [facility] Address: [address] [place] [address] Performed By: #### 3 1201-7, 5-3, 01149-5, SYPH #### [facility] CLIA [id number] [address] [place] [address] [place] Monocytes/100 WBC (Bld) 4.7 % Normal [facility] Comment on above: Order Comment: Speci men Type: BLOOD SPECIMEN Ordering Facility: [facility] Address: [address] [place], [place] [address] Performed By: #### 3 1201-7, 5-3, 42517-0, SYPH #### [facility] CLIA [id number] [address] [place] [address] [place] Neutrophils (Bld) [#/Vol] 13.71 10*3/uL High 1.45-7.50 [facility] Comment on above: Order Comment: Speci men Type: BLOOD SPECIMEN Ordering Facility: [facility] Address: [address] [place], [place] [address] Performed By: #### 3 1201-7, 5-3, 45201-3, SYPH #### [facility] CLIA [id number] [address] [place], [place] [address] [place] Neutrophils/100 WBC (Bld) 83.3 % Normal [facility] Comment on above: Order Comment: Speci men Type: BLOOD SPECIMEN Ordering Facility: [facility] Address: [address] [place], [place] [address] Performed By: #### 3 1201-7, 5195-3, 14602-9, SYPH #### [facility] CLIA [id number] [address] [place] [address] [place] Nucleated RBC (Bld) [#/Vol] 10*3/uL Normal <0.01 [facility] Comment on above: Order Comment: Speci men Type: BLOOD SPECIMEN Ordering Facility: [facility] Address: [address] [place] [address] Performed By: #### 3 1201-7, 5195-3, 19226-8, SYPH #### [facility] CLIA [id number] [address] [place] [address] [place] Nucleated RBC/100 WBC (Bld) [Ratio] 0.0 /100 WBC Normal [facility] Comment on above: Order Comment: Speci men Type: BLOOD SPECIMEN Ordering Facility: [facility] Address: [address] [place] [address] Performed By: #### 3 1201-7, 5195-3, 38647-1, SYPH #### [facility] CLIA [id number] [address] [place] [address] [place] Platelet mean volume (Bld) [Entitic vol] 12.4 fL Normal 9.0-12.7 [facility] Comment on above: Order Comment: Speci men Type: BLOOD SPECIMEN Ordering Facility: [facility] Address: [address] [place] [address] Performed By: #### 3 1201-7, 5195-3, 44881-4, SYPH #### [facility] CLIA [id number] [address] [place] [address] [place] Platelets (Bld) [#/Vol] 144 10*3/uL Low 150-400 [facility] Comment on above: Order Comment: Speci men Type: BLOOD SPECIMEN Ordering Facility: [facility] Address: [address] [place] [address] Performed By: #### 3 1201-7, 5195-3, 63598-0, SYPH #### [facility] CLIA [id number] [address] [place], [place] [address] [facility] [place] RBC (Bld) [#/Vol] 3.97 10*6/uL Normal 3.90-5.20 [facility] Comment on above: Order Comment: Speci men Type: BLOOD SPECIMEN Ordering Facility: [facility] Address: [address] [place] [address] Performed By: #### 3 1201-7, 5195-3, 88477-2, SYPH #### [facility] CLIA [id number] [address] [place] [address] OF [facility] WBC (Bld) [#/Vol] 16.45 10*3/uL High 3.70-11.00 [facility] Comment on above: Order Comment: Speci men Type: BLOOD SPECIMEN Ordering Facility: [facility] Address: [address] [place] [address] Performed By: #### 3 1201-7, 5195-3, 72973-9, SYPH #### [facility] CLIA [id number] [address] [place] [address] Comprehensive metabolic 2000 panelon 02-03-2023 Albumin [Mass/Vol] 3.5 g/dL Normal 3.2-5.0 [facility] Comment on above: Order Comment: Speci men Type: BLOOD SPECIMEN Ordering Facility: [facility] Address: [address] [place] [address] Performed By: #### 3 1201-7, 5195-3, 24680-3, SYPH #### [facility] CLIA [id number] [address] [place] [address] [place] ALP [Catalytic activity/Vol] 82 U/L Normal 45-117 [facility] Comment on above: Order Comment: Speci men Type: BLOOD SPECIMEN Ordering Facility: [facility] Address: [address] [place] [address] Performed By: #### 3 1201-7, 5195-3, 26719-0, SYPH #### [facility] CLIA [id number] [address] [place] [address] [place] ALT [Catalytic activity/Vol] 19 U/L Normal 13-61 [facility] Comment on above: Order Comment: Jon russ Type: BLOOD SPECIMEN Ordering Facility: [facility] Address: [address] [place] [address] Result Comment: Resu lts may be falsely depressed after the administration of Sulfasalazine and/or Sulfapyridine. Performed By: #### 3 1201-7, 5195-3, 02096-6, SYPH #### [facility] CLIA [id number] [address] [place] [address] STATES OF [facility] Anion gap [Moles/Vol] 17 mmol/L High 5-16 [facility] Comment on above: Order Comment: Jon russ Type: BLOOD SPECIMEN Ordering Facility: [facility] Address: [address] [place] [address] Performed By: #### 3 1201-7, 5195-3, 14272-3, SYPH #### [facility] CLIA [id number] [address] [place] [address] AST [Catalytic activity/Vol] Normal [facility] Comment on above: Order Comment: Jon russ Type: BLOOD SPECIMEN Ordering Facility: [facility] Address: [address] [place] [address] Result Comment: Unab le to assay due to interference from hemolysis. Suggest reorder as clinically indicated. Critical or Urgent Result(s) Called at: 04:33:47 on 02/03/2023 by milly. Called to and read back by: CLOVIS Results may be falsely depressed after the administration of Sulfasalazine and/or Sulfapyridine. Performed By: #### 3 1201-7, 5195-3, 65561-1, SYPH #### [facility] CLIA [id number] [address] [place] [address] [place] Bilirubin [Mass/Vol] 1.0 mg/dL Normal 0.2-1.0 [facility] Comment on above: Order Comment: Jon russ Type: BLOOD SPECIMEN Ordering Facility: [facility] Address: [address] [place] [address] Performed By: #### 3 1201-7, 5195-3, 04282-1, SYPH #### [facility] CLIA [id number] [address] [place], [place] [address] [place] Calcium [Mass/Vol] 8.5 mg/dL Normal 8.5-10.5 [facility] Comment on above: Order Comment: Speci men Type: BLOOD SPECIMEN Ordering Facility: [facility] Address: [address] [place] [address] Performed By: #### 3 1201-7, 5195-3, 78703-9, SYPH #### [facility] CLIA [id number] [address] [place] [address] [place] Chloride [Moles/Vol] 109 mmol/L High 98-107 [facility] Comment on above: Order Comment: Speci men Type: BLOOD SPECIMEN Ordering Facility: [facility] Address: [address] [place] [address] Performed By: #### 3 1201-7, 5195-3, 31705-4, SYPH #### [facility] CLIA [id number] [address] [place] [address] [place] CO2 [Moles/Vol] 12 mmol/L Low 21-32 [facility] Comment on above: Order Comment: Speci men Type: BLOOD SPECIMEN Ordering Facility: [facility] Address: [address] [place] [address] Performed By: #### 3 1201-7, 5195-3, 06058-9, SYPH #### [facility] CLIA [id number] [address] [place], [place] [address] [place] Creatinine [Mass/Vol] 0.64 mg/dL Normal 0.51-0.95 [facility] Comment on above: Order Comment: Speci men Type: BLOOD SPECIMEN Ordering Facility: [facility] Address: [address] [place] [address] Result Comment: Cleopatra ents receiving either N-Acetylcysteine (NAC) or Metamizole prior to venipuncture, may have falsely depressed results. Performed By: #### 3 1201-7, 5195-3, 24996-6, SYPH #### [facility] CLIA [id number] [address] [place], [place] [address] [place] ESTIMATED GLOMERULAR FILTRATION RATE 124 mL/min/1.73m??? Normal >=60 [facility] Comment on above: Order Comment: Jon russ Type: BLOOD SPECIMEN Ordering Facility: [facility] Address: [address] [place] [address] Result Comment: Janett mated Glomerular Filtration Rate [...] GFR. Performed By: #### 3 1201-7, 5195-3, 50658-5, SYPH #### [facility] CLIA [id number] [address] [place], [place] [address] [place] Glucose [Mass/Vol] 252 mg/dL High 70-100 [facility] Comment on above: Order Comment: Jon russ Type: BLOOD SPECIMEN Ordering Facility: [facility] Address: [address] [place] [address] Result Comment: The [place] Diabetes Association (ADA) provides guidance for cutoff [...] Standards of Medical Care in Diabetes 2016, [place] [employer]. Diabetes Care. 2016.39(Suppl 1). Results may be falsely elevated after the administration of Sulfapyridine. Results may be falsely depressed after the administration of Sulfasalazine. Performed By: #### 3 1201-7, 5195-3, 05185-5, SYPH #### [facility] CLIA [id number] [address] [place], [place] [address] [place] Potassium [Moles/Vol] Normal [facility] Comment on above: Order Comment: Speci jeb Type: BLOOD SPECIMEN Ordering Facility: [facility] Address: [address] [address] Result Comment: Unab le to assay due to interference from hemolysis. Suggest reorder as clinically indicated. Critical or Urgent Result(s) Called at: 04:33:11 on 02/03/2023 by milly. Called to and read back by: CLOVIS Performed By: #### 3 1201-7, 5195-3, 87089-1, SYPH #### [facility] CLIA [id number] [address] [place] [address] [place] Protein [Mass/Vol] 5.8 g/dL Low 6.0-8.5 [facility] Comment on above: Order Comment: Speci men Type: BLOOD SPECIMEN Ordering Facility: [facility] Address: [address] [address] Performed By: #### 3 1201-7, 5195-3, 53206-6, SYPH #### [facility] CLIA [id number] [address] [place] [address] [place] Sodium [Moles/Vol] 138 mmol/L Normal 136-145 [facility] Comment on above: Order Comment: Speci men Type: BLOOD SPECIMEN Ordering Facility: [facility] Address: [address] [address] Performed By: #### 3 1201-7, 5195-3, 85003-5, SYPH #### [facility] CLIA [id number] [address] [place] [address] [place] Urea nitrogen [Mass/Vol] 10 mg/dL Normal 7-26 [facility] Comment on above: Order Comment: Speci men Type: BLOOD SPECIMEN Ordering Facility: [facility] Address: [address] [place] [address] Performed By: #### 3 1201-7, 5195-3, 53722-0, SYPH #### [facility] CLIA [id number] [address] [place], [place] [address] [place] Magnesium SerPl-mCncon 02-03 Magnesium [Mass/Vol] 1.8 mg/dL Normal 1.6-2.6 [facility] Comment on above: Order Comment: Speci men Type: BLOOD SPECIMEN Ordering Facility: [facility] Address: [address] [place] [place] [phone] Performed By: #### 3 1201-7, 5195-3, 31196-3, SYPH #### [facility] CLIA [id number] [address] [place], [place] [address] [place] Basic metabolic 2000 panelon 02-02-2023 Anion gap [Moles/Vol] 17 mmol/L High 5-16 [facility] Comment on above: Order Comment: Speci men Type: BLOOD SPECIMEN Ordering Facility: [facility] Address: [address] Performed By: #### 3 1201-7, 5195-3, 20627-6, SYPH #### [facility] CLIA [id number] [address] [place], [place] [address] [place] Calcium [Mass/Vol] 8.0 mg/dL Low 8.5-10.5 [facility] Comment on above: Order Comment: Speci men Type: BLOOD SPECIMEN Ordering Facility: [facility] Address: [address] [place] [place] [phone] Performed By: #### 3 1201-7, 5195-3, 36526-5, SYPH #### [facility] CLIA [id number] [address] [place] [address] [place] Chloride [Moles/Vol] 108 mmol/L High 98-107 [facility] Comment on above: Order Comment: Speci men Type: BLOOD SPECIMEN Ordering Facility: [facility] Address[facility] [address] [place] [address] Performed By: #### 3 1201-7, 5195-3, 14193-0, SYPH #### [facility] CLIA [id number] [address] [place] [address] [place] CO2 [Moles/Vol] 13 mmol/L Low 21-32 [facility] Comment on above: Order Comment: Speci men Type: BLOOD SPECIMEN Ordering Facility: [facility] Address: [address] [address] Performed By: #### 3 1201-7, 5195-3, 04558-1, SYPH #### [facility] CLIA [id number] [address] [place] [address] [place] Creatinine [Mass/Vol] 0.69 mg/dL Normal 0.51-0.95 [facility] Comment on above: Order Comment: Speci men Type: BLOOD SPECIMEN Ordering Facility: [facility] Address: [address] [place] [address] Result Comment: Cleopatra ents receiving either N-Acetylcysteine (NAC) or Metamizole prior to venipuncture, may have falsely depressed results. Performed By: #### 3 1201-7, 5195-3, 21326-3, SYPH #### [facility] CLIA [id number] [address] [place] [address] [place] ESTIMATED GLOMERULAR FILTRATION RATE 121 mL/min/1.73m??? Normal >=60 [facility] Comment on above: Order Comment: Speci men Type: BLOOD SPECIMEN Ordering Facility: [facility] Address: [address] [place] [address] Result Comment: Janett mated Glomerular Filtration Rate [...] GFR. Performed By: #### 3 1201-7, 5195-3, 30959-1, SYPH #### [facility] CLIA [id number] [address] [place] [address] [place] Glucose [Mass/Vol] 251 mg/dL High 70-100 [facility] Comment on above: Order Comment: Jon russ Type: BLOOD SPECIMEN Ordering Facility: [facility] Address: [address] [address] Result Comment: The [place] Diabetes Association (ADA) provides guidance for cutoff [...] Standards of Medical Care in Diabetes 2016, [place] [employer]. Diabetes Care. 2016.39(Suppl 1). Results may be falsely elevated after the administration of Sulfapyridine. Results may be falsely depressed after the administration of Sulfasalazine. Performed By: #### 3 1201-7, 5195-3, 70609-5, SYPH #### [facility] CLIA [id number] [address] [place] [address] [place] Potassium [Moles/Vol] 4.4 mmol/L Normal 3.5-5.1 [facility] Comment on above: Order Comment: Jon russ Type: BLOOD SPECIMEN Ordering Facility: [facility] Address: [address] [phone] Performed By: #### 3 1201-7, 5195-3, 43799-1, SYPH #### [facility] CLIA [id number] [address] [place] [address] [place] Sodium [Moles/Vol] 138 mmol/L Normal 136-145 [facility] Comment on above: Order Comment: Jon russ Type: BLOOD SPECIMEN Ordering Facility: [facility] Address: [address] [place] [address] Performed By: #### 3 1201-7, 5195-3, 38924-6, SYPH #### [facility] CLIA [id number] [address] [place], [place] [address] [place] Urea nitrogen [Mass/Vol] 12 mg/dL Normal 7-26 [facility] Comment on above: Order Comment: Speci men Type: BLOOD SPECIMEN Ordering Facility: [facility] Address: [address] [place], [place] [address] Performed By: #### 3 1201-7, 5-3, 83793-7, SYPH #### [facility] CLIA [id number] [address] [place] [address] [place] Anion gap [Moles/Vol] 15 mmol/L Normal 5-16 [facility] Comment on above: Order Comment: Speci men Type: BLOOD SPECIMEN Ordering Facility: [facility] Address: [address] [place] [address] Performed By: #### 3 1201-7, 5194-3, 99842-1, SYPH #### [facility] CLIA [id number] [address] [place] [address] [place] Calcium [Mass/Vol] 8.2 mg/dL Low 8.5-10.5 [facility] Comment on above: Order Comment: Speci men Type: BLOOD SPECIMEN Ordering Facility: [facility] Address: [address] [place], [place] [address] Performed By: #### 3 1201-7, 5-3, 53558-4, SYPH #### [facility] CLIA [id number] [address] [place], [place] [address] [place] Chloride [Moles/Vol] 113 mmol/L High 98-107 [facility] Comment on above: Order Comment: Speci men Type: BLOOD SPECIMEN Ordering Facility: [facility] Address: [address] [place] [address] Performed By: #### 3 1201-7, 5195-3, 28304-6, SYPH #### [facility] CLIA [id number] [address] [place] [address] [place] CO2 [Moles/Vol] 11 mmol/L Low 21-32 [facility] Comment on above: Order Comment: Jon russ Type: BLOOD SPECIMEN Ordering Facility: [facility] Address: [address] [place] [address] Performed By: #### 3 1201-7, 5195-3, 30114-1, SYPH #### [facility] CLIA [id number] [address] [place] [address] [place] Creatinine [Mass/Vol] 0.77 mg/dL Normal 0.51-0.95 [facility] Comment on above: Order Comment: Speci men Type: BLOOD SPECIMEN Ordering Facility: [facility] Address: [address] [place] [address] Result Comment: Cleopatra ents receiving either N-Acetylcysteine (NAC) or Metamizole prior to venipuncture, may have falsely depressed results. Performed By: #### 3 1201-7, 5195-3, 80385-8, SYPH #### [facility] CLIA [id number] [address] [place] [address] [place] ESTIMATED GLOMERULAR FILTRATION RATE 108 mL/min/1.73m??? Normal >=60 [facility] Comment on above: Order Comment: Belindai jeb Type: BLOOD SPECIMEN Ordering Facility: [facility] Address: [address] [place] [address] Result Comment: Janett mated Glomerular Filtration Rate [...] GFR. Performed By: #### 3 1201-7, 5195-3, 68953-4, SYPH #### [facility] CLIA [id number] [address] [place] [address] [place] Glucose [Mass/Vol] 253 mg/dL High 70-100 [facility] Comment on above: Order Comment: Jon russ Type: BLOOD SPECIMEN Ordering Facility: [facility] Address: [address] [place] [address] Result Comment: The [place] Diabetes Association (ADA) provides guidance for cutoff [...] Standards of Medical Care in Diabetes 2016, [place] [employer]. Diabetes Care. 2016.39(Suppl 1). Results may be falsely elevated after the administration of Sulfapyridine. Results may be falsely depressed after the administration of Sulfasalazine. Performed By: #### 3 1201-7, 5195-3, 32132-2, SYPH #### [facility] CLIA [id number] [address] [place] [address] [place] Potassium [Moles/Vol] 4.6 mmol/L Normal 3.5-5.1 [facility] Comment on above: Order Comment: Jon russ Type: BLOOD SPECIMEN Ordering Facility: [facility] Address: [address] [place] [address] Performed By: #### 3 1201-7, 5195-3, 75043-1, SYPH #### [facility] CLIA [id number] [address] [place] [address] [place] Sodium [Moles/Vol] 139 mmol/L Normal 136-145 [facility] Comment on above: Order Comment: Jon russ Type: BLOOD SPECIMEN Ordering Facility: [facility] Address: [address] [place], [place] [address] Performed By: #### 3 1201-7, 5195-3, 63038-3, SYPH #### [facility] CLIA [id number] [address] [place] [address] [place] Urea nitrogen [Mass/Vol] 18 mg/dL Normal 7-26 [facility] Comment on above: Order Comment: Speci men Type: BLOOD SPECIMEN Ordering Facility: [facility] Address: [address] [place] [address] Performed By: #### 3 1201-7, 5195-3, 87036-7, SYPH #### [facility] CLIA [id number] [address] [place] [address] [place] Anion gap [Moles/Vol] 19 mmol/L High 5-16 [facility] Comment on above: Order Comment: Speci men Type: SWAB Ordering Facility: [facility] Address: [address] [place] [address] Performed By: #### 3 6902-5 #### [facility] CLIA [id number] [address] [place] [address] [place] Calcium [Mass/Vol] 8.6 mg/dL Normal 8.5-10.5 [facility] Comment on above: Order Comment: Speci men Type: SWAB Ordering Facility: [facility] Address: [address] [place] [address] Performed By: #### 3 6902-5 #### [facility] CLIA [id number] [address] [place] [address] [place] Chloride [Moles/Vol] 108 mmol/L High 98-107 [facility] Comment on above: Order Comment: Speci men Type: SWAB Ordering Facility: [facility] Address: [address] [place] [address] Performed By: #### 3 6902-5 #### [facility] CLIA [id number] [address] [place] [address] [place] CO2 [Moles/Vol] 9 mmol/L Low 21-32 [facility] Comment on above: Order Comment: Speci men Type: SWAB Ordering Facility: [facility] Address: [address] [place] [address] Result Comment: Crit ical or Urgent Result(s) Called at: 10:32:16 on 02/02/2023 by [facility]. Called to and read back by: Billie SALEEM Performed By: #### 3 6902-5 #### [facility] CLIA [id number] [address] [place] [address] [place] Creatinine [Mass/Vol] 0.82 mg/dL Normal 0.51-0.95 [facility] Comment on above: Order Comment: Speci men Type: SWAB Ordering Facility: [facility] Address: [address] [address] Result Comment: Cleopatra ents receiving either N-Acetylcysteine (NAC) or Metamizole prior to venipuncture, may have falsely depressed results. Performed By: #### 3 6902-5 #### [facility] CLIA [id number] [address] [place] [address] [place] ESTIMATED GLOMERULAR FILTRATION RATE 100 mL/min/1.73m??? Normal >=60 [facility] Comment on above: Order Comment: Speci men Type: SWAB Ordering Facility: [facility] Address: [address] [place] [address] Result Comment: Janett mated Glomerular Filtration Rate [...] GFR. Performed By: #### 3 6902-5 #### [facility] CLIA [id number] [address] [place] [address] [place] Glucose [Mass/Vol] 336 mg/dL High 70-100 [facility] Comment on above: Order Comment: Speci men Type: SWAB Ordering Facility: [facility] Address: [address] [address] Result Comment: The [place] Diabetes Association (ADA) provides guidance for cutoff [...] Standards of Medical Care in Diabetes 2016, [place] [employer]. Diabetes Care. 2016.39(Suppl 1). Results may be falsely elevated after the administration of Sulfapyridine. Results may be falsely depressed after the administration of Sulfasalazine. Performed By: #### 3 6902-5 #### [facility] CLIA [id number] [address] [place] [address] [place] Potassium [Moles/Vol] Normal [facility] Comment on above: Order Comment: Speci men Type: SWAB Ordering Facility: [facility] Address: [address] [address] Result Comment: Unab le to assay due to interference from hemolysis. Suggest reorder as clinically indicated. Spoke to Billie SALEEM Performed By: #### 3 6902-5 #### [facility] CLIA [id number] [address] [place] [address] [place] Sodium [Moles/Vol] 136 mmol/L Normal 136-145 [facility] Comment on above: Order Comment: Speci men Type: SWAB Ordering Facility: [facility] Address: [address] [address] Performed By: #### 3 6902-5 #### [facility] CLIA [id number] [address] [place] [address] [place] Urea nitrogen [Mass/Vol] 19 mg/dL Normal 7-26 [facility] Comment on above: Order Comment: Speci men Type: SWAB Ordering Facility: [facility] Address: [address] [address] Performed By: #### 3 6902-5 #### [facility] CLIA [id number] [address] [place] [address] [place] Anion gap [Moles/Vol] 18 mmol/L High 5-16 [facility] Comment on above: Order Comment: Speci men Type: SWAB Ordering Facility: [facility] Address: [address] [address] Performed By: #### 3 6902-5 #### [facility] CLIA [id number] [address] [place] [address] [place] Calcium [Mass/Vol] 8.6 mg/dL Normal 8.5-10.5 [facility] Comment on above: Order Comment: Speci men Type: SWAB Ordering Facility: [facility] Address: [address] [place] [address] Performed By: #### 3 6902-5 #### [facility] CLIA [id number] [address] [place] [address] [place] Chloride [Moles/Vol] 108 mmol/L High 98-107 [facility] Comment on above: Order Comment: Speci men Type: SWAB Ordering Facility: [facility] Address: [address] [place] [address] Performed By: #### 3 6902-5 #### [facility] CLIA [id number] [address] [place] [address] [place] CO2 [Moles/Vol] 12 mmol/L Low 21-32 [facility] Comment on above: Order Comment: Speci men Type: SWAB Ordering Facility: [facility] Address: [address] [address] Performed By: #### 3 6902-5 #### [facility] CLIA [id number] [address] [place] [address] [place] Creatinine [Mass/Vol] 0.75 mg/dL Normal 0.51-0.95 [facility] Comment on above: Order Comment: Speci men Type: SWAB Ordering Facility: [facility] Address: [address] [place] [address] Result Comment: Cleopatra ents receiving either N-Acetylcysteine (NAC) or Metamizole prior to venipuncture, may have falsely depressed results. Performed By: #### 3 6902-5 #### [facility] CLIA [id number] [address] [place] [address] [place] ESTIMATED GLOMERULAR FILTRATION RATE 111 mL/min/1.73m??? Normal >=60 [facility] Comment on above: Order Comment: Jon russ Type: SWAB Ordering Facility: [facility] Address: [address] [place] [address] Result Comment: Janett mated Glomerular Filtration Rate [...] GFR. Performed By: #### 3 6902-5 #### [facility] CLIA [id number] [address] [place] [address] [place] Glucose [Mass/Vol] 421 mg/dL High 70-100 [facility] Comment on above: Order Comment: Jon russ Type: SWAB Ordering Facility: [facility] Address: [address] [place] [address] Result Comment: The [place] Diabetes Association (ADA) provides guidance for cutoff [...] Standards of Medical Care in Diabetes 2016, [place] [employer]. Diabetes Care. 2016.39(Suppl 1). Results may be falsely elevated after the administration of Sulfapyridine. Results may be falsely depressed after the administration of Sulfasalazine. Performed By: #### 3 6902-5 #### [facility] CLIA [id number] [address] [place] [address] [place] Potassium [Moles/Vol] 4.8 mmol/L Normal 3.5-5.1 [facility] Comment on above: Order Comment: Speci men Type: SWAB Ordering Facility: [facility] Address: [address] [place] [address] Performed By: #### 3 6902-5 #### [facility] CLIA [id number] [address] [place] [address] [place] Sodium [Moles/Vol] 138 mmol/L Normal 136-145 [facility] Comment on above: Order Comment: Speci men Type: SWAB Ordering Facility: [facility] Address: [address] [place] [address] Performed By: #### 3 6902-5 #### [facility] CLIA [id number] [address] [place] [address] [place] Urea nitrogen [Mass/Vol] 20 mg/dL Normal 7-26 [facility] Comment on above: Order Comment: Speci men Type: SWAB Ordering Facility: [facility] Address: [address] [place] [address] Performed By: #### 3 6902-5 #### [facility] CLIA [id number] [address] [place] [address] [place] CBC W Auto Differential pane l (Bld)on 02-02-2023 Basophils (Bld) [#/Vol] 0.03 10*3/uL Normal <0.11 [facility] Comment on above: Order Comment: Speci men Type: BLOOD SPECIMEN Ordering Facility: [facility] Address: [address] [place] [address] Performed By: #### 3 1201-7, 5195-3, 85887-7, SYPH #### [facility] CLIA [id number] [address] [place] [address] [place] Basophils/100 WBC (Bld) 0.1 % Normal [facility] Comment on above: Order Comment: Speci men Type: BLOOD SPECIMEN Ordering Facility: [facility] Address: [address] [place] [address] Performed By: #### 3 1201-7, 5-3, 65039-8, SYPH #### [facility] CLIA [id number] [address] [place] [address] [place] Differential cell count method Nom (Bld) Auto Normal [facility] Comment on above: Order Comment: Speci men Type: BLOOD SPECIMEN Ordering Facility: [facility] Address: [address] [place] [address] Performed By: #### 3 1201-7, 5194-3, , SYPH #### [facility] CLIA [id number] [address] [place] [address] [place] Eosinophils (Bld) [#/Vol] 10*3/uL Normal <0.46 [facility] Comment on above: Order Comment: Speci men Type: BLOOD SPECIMEN Ordering Facility: [facility] Address: [address] [place] [address] Performed By: #### 3 1201-7, 5194-3, , SYPH #### [facility] CLIA [id number] [address] [place] [address] [place] Eosinophils/100 WBC (Bld) 0.0 % Normal [facility] Comment on above: Order Comment: Speci men Type: BLOOD SPECIMEN Ordering Facility: [facility] Address: [address] [place] [address] Performed By: #### 3 1201-7, 5-3, 73541-4, SYPH #### [facility] CLIA [id number] [address] [place] [address] [place] Erythrocyte distribution width (RBC) [Ratio] 14.0 % Normal 11.5-15.0 [facility] Comment on above: Order Comment: Speci men Type: BLOOD SPECIMEN Ordering Facility: [facility] Address: [address] Performed By: #### 3 1201-7, 5195-3, 88149-5, SYPH #### [facility] CLIA [id number] [address] [place] [address] [place] Hematocrit (Bld) [Volume fraction] 33.8 % Low 36.0-46.0 [facility] Comment on above: Order Comment: Speci men Type: BLOOD SPECIMEN Ordering Facility: [facility] Address: [address] Performed By: #### 3 1201-7, 5195-3, 21963-5, SYPH #### [facility] CLIA [id number] [address] [place] [address] [place] Hemoglobin (Bld) [Mass/Vol] 10.8 g/dL Low 11.5-15.5 [facility] Comment on above: Order Comment: Speci men Type: BLOOD SPECIMEN Ordering Facility: [facility] Address: [address] [address] Performed By: #### 3 1201-7, 5195-3, 74251-3, SYPH #### [facility] CLIA [id number] [address] [place] [address] [place] Immature granulocytes (Bld) [#/Vol] 0.19 10*3/uL High <0.10 [facility] Comment on above: Order Comment: Speci men Type: BLOOD SPECIMEN Ordering Facility: [facility] Address: [address] Performed By: #### 3 1201-7, 5195-3, 22835-9, SYPH #### [facility] CLIA [id number] [address] [place] [address] [place] Immature granulocytes/100 WBC (Bld) 0.9 % Normal [facility] Comment on above: Order Comment: Speci men Type: BLOOD SPECIMEN Ordering Facility: [facility] Address: [address] Performed By: #### 3 1201-7, 5195-3, 40044-7, SYPH #### [facility] CLIA [id number] [address] [place], [place] [address] [place] Lymphocytes (Bld) [#/Vol] 2.41 10*3/uL Normal 1.00-4.00 [facility] Comment on above: Order Comment: Speci men Type: BLOOD SPECIMEN Ordering Facility: [facility] Address: [address] [place] [address] Performed By: #### 3 1201-7, 5195-3, 50175-0, SYPH #### [facility] CLIA [id number] [address] [place] [address] [place] Lymphocytes/100 WBC (Bld) 11.6 % Normal [facility] Comment on above: Order Comment: Speci men Type: BLOOD SPECIMEN Ordering Facility: [facility] Address: [address] [place] [address] Performed By: #### 3 1201-7, 5-3, 07571-8, SYPH #### [facility] CLIA [id number] [address] [place] [address] [place] MCH (RBC) [Entitic mass] 29.1 pg Normal 26.0-34.0 [facility] Comment on above: Order Comment: Speci men Type: BLOOD SPECIMEN Ordering Facility: [facility] Address: [address] [place] [address] Performed By: #### 3 1201-7, 5-3, 62084-5, SYPH #### [facility] CLIA [id number] [address] [place] [address] [place] MCHC (RBC) [Mass/Vol] 32.0 g/dL Normal 30.5-36.0 [facility] Comment on above: Order Comment: Speci men Type: BLOOD SPECIMEN Ordering Facility: [facility] Address: [address] [place] [address] Performed By: #### 3 1201-7, 5195-3, 39260-3, SYPH #### [facility] CLIA [id number] [address] [place] [address] [place] MCV (RBC) [Entitic vol] 91.1 fL Normal 80.0-100.0 [facility] Comment on above: Order Comment: Speci men Type: BLOOD SPECIMEN Ordering Facility: [facility] Address: [address] [place] [address] Performed By: #### 3 1201-7, 5195-3, 03810-1, SYPH #### [facility] CLIA [id number] [address] [place] [address] [place] Monocytes (Bld) [#/Vol] 0.93 10*3/uL High <0.87 [facility] Comment on above: Order Comment: Speci men Type: BLOOD SPECIMEN Ordering Facility: [facility] Address: [address] [place] [address] Performed By: #### 3 1201-7, 5195-3, 18515-0, SYPH #### [facility] CLIA [id number] [address] [place] [address] [place] Monocytes/100 WBC (Bld) 4.5 % Normal [facility] Comment on above: Order Comment: Speci men Type: BLOOD SPECIMEN Ordering Facility: [facility] Address: [address] [place] [address] Performed By: #### 3 1201-7, 5195-3, 00994-8, SYPH #### [facility] CLIA [id number] [address] [place] [address] [place] Neutrophils (Bld) [#/Vol] 17.17 10*3/uL High 1.45-7.50 [facility] Comment on above: Order Comment: Speci men Type: BLOOD SPECIMEN Ordering Facility: [facility] Address: [address] [place] [address] Performed By: #### 3 1201-7, 5195-3, 57201-8, SYPH #### [facility] CLIA [id number] [address] [place] [address] [place] Neutrophils/100 WBC (Bld) 82.9 % Normal [facility] Comment on above: Order Comment: Speci men Type: BLOOD SPECIMEN Ordering Facility: [facility] Address: [address] [place] [address] Performed By: #### 3 1201-7, 5195-3, 56686-7, SYPH #### [facility] CLIA [id number] [address] [place] [address] [place] Nucleated RBC (Bld) [#/Vol] 10*3/uL Normal <0.01 [facility] Comment on above: Order Comment: Speci men Type: BLOOD SPECIMEN Ordering Facility: [facility] Address: [address] [place] [address] Performed By: #### 3 1201-7, 5195-3, 18995-1, SYPH #### [facility] CLIA [id number] [address] [place] [address] [place] Nucleated RBC/100 WBC (Bld) [Ratio] 0.0 /100 WBC Normal [facility] Comment on above: Order Comment: Speci men Type: BLOOD SPECIMEN Ordering Facility: [facility] Address: [address] [place] [address] Performed By: #### 3 1201-7, 5195-3, 98556-8, SYPH #### [facility] CLIA [id number] [address] [place] [address] [place] Platelet mean volume (Bld) [Entitic vol] 12.0 fL Normal 9.0-12.7 [facility] Comment on above: Order Comment: Speci men Type: BLOOD SPECIMEN Ordering Facility: [facility] Address: [address] [place] [address] Performed By: #### 3 1201-7, 5195-3, 22234-7, SYPH #### [facility] CLIA [id number] [address] [place], [place] [address] [place] Platelets (Bld) [#/Vol] 164 10*3/uL Normal 150-400 [facility] Comment on above: Order Comment: Speci men Type: BLOOD SPECIMEN Ordering Facility: [facility] Address: [address] [place] [id number] Performed By: #### 3 1201-7, 5195-3, 08935-4, SYPH #### [facility] CLIA [id number] [address] [place], [place] [address] [place] RBC (Bld) [#/Vol] 3.71 10*6/uL Low 3.90-5.20 [facility] Comment on above: Order Comment: Speci men Type: BLOOD SPECIMEN Ordering Facility: [facility] Address: [address] [place] [address] Performed By: #### 3 1201-7, 5195-3, 80128-5, SYPH #### [facility] CLIA [id number] [address] [place] [address] [place] WBC (Bld) [#/Vol] 20.73 10*3/uL High 3.70-11.00 [facility] Comment on above: Order Comment: Speci men Type: BLOOD SPECIMEN Ordering Facility: [facility] Address: [address] [place] [address] Performed By: #### 3 1201-7, 5195-3, 99250-1, SYPH #### [facility] CLIA [id number] [address] [place] [address] [place] Gas and Carbon monoxide pane l (BldV)on 02-02-2023 BASE DEFICIT, VENOUS -16 mmol/L Low -2-0 [facility] Comment on above: Order Comment: Speci men Type: SWAB Ordering Facility: [facility] Address: [address] [place] [address] Performed By: #### 3 6902-5 #### [facility] CLIA [id number] [address] [place], [place] [address] [place] Body temperature 98.6 [degF] Normal [facility] Comment on above: Order Comment: Speci men Type: SWAB Ordering Facility: [facility] Address: [address] [address] Performed By: #### 3 6902-5 #### [facility] CLIA [id number] [address] [place] [address] [place] Calcium.ionized (Bld) [Mass/Vol] 1.14 mmol/L Normal 1.08-1.30 [facility] Comment on above: Order Comment: Speci men Type: SWAB Ordering Facility: [facility] Address: [address] [address] Performed By: #### 3 6902-5 #### [facility] CLIA [id number] [address] [place] [address] [place] Carboxyhemoglobin (BldV) [Mass fraction] 1.0 % Normal 0.0-2.0 [facility] Comment on above: Order Comment: Speci men Type: SWAB Ordering Facility: [facility] Address: [address] [address] Result Comment: Carb oxyhemoglobin Reference Range for Smokers: 2.0-8.0% Performed By: #### 3 6902-5 #### [facility] CLIA [id number] [address] [place] [address] [place] CO2 (BldV) [Partial pressure] 22 mm[Hg] Low 42-55 [facility] Comment on above: Order Comment: Speci men Type: SWAB Ordering Facility: [facility] Address: [address] [address] Performed By: #### 3 6902-5 #### [facility] CLIA [id number] [address] [place] [address] [place] Glucose [Mass/Vol] 335 mg/dL High 60-105 [facility] Comment on above: Order Comment: Speci men Type: SWAB Ordering Facility: [facility] Address: [address] [place] [address] Performed By: #### 3 6902-5 #### [facility] CLIA [id number] [address] [place] [address] [place] HCO3 (Bld) [Moles/Vol] 9 mmol/L Low 24-28 [facility] Comment on above: Order Comment: Speci men Type: SWAB Ordering Facility: [facility] Address: [address] [place] [address] Performed By: #### 3 6902-5 #### [facility] CLIA [id number] [address] [place] [address] [place] Hemoglobin (Bld) [Mass/Vol] 13.1 g/dL Normal 11.5-15.5 [facility] Comment on above: Order Comment: Speci men Type: SWAB Ordering Facility: [facility] Address: [address] [address] Performed By: #### 3 6902-5 #### [facility] CLIA [id number] [address] [place] [address] [place] Lactate [Moles/Vol] 1.8 mmol/L Normal 0.5-2.2 [facility] Comment on above: Order Comment: Speci men Type: SWAB Ordering Facility: [facility] Address: [address] [place] [address] Performed By: #### 3 6902-5 #### [facility] CLIA [id number] [address] [place] [address] [place] Methemoglobin (Bld) [Mass fraction] 0.3 % Normal 0.0-1.5 [facility] Comment on above: Order Comment: Speci men Type: SWAB Ordering Facility: [facility] Address: [address] [address] Performed By: #### 3 6902-5 #### [facility] CLIA [id number] [address] [place] [address] [place] O2 THERAPY RA=Room Air Normal [facility] Comment on above: Order Comment: Speci men Type: SWAB Ordering Facility: [facility] Address: [address] [place] [address] Performed By: #### 3 6902-5 #### [facility] CLIA [id number] [address] [place] [address] [place] Oxygen (BldV) [Partial pressure] 93 mm[Hg] High 35-45 [facility] Comment on above: Order Comment: Speci men Type: SWAB Ordering Facility: [facility] Address: [address] [place] [address] Performed By: #### 3 6902-5 #### [facility] CLIA [id number] [address] [place] [address] [place] Oxyhemoglobin (BldV) [Mass fraction] 94 % Normal 4-98 [facility] Comment on above: Order Comment: Speci men Type: SWAB Ordering Facility: [facility] Address: [address] [place] [address] Performed By: #### 3 6902-5 #### [facility] CLIA [id number] [address] [place] [address] [place] pH (BldV) 7.24 [pH] Low 7.32-7.42 [facility] Comment on above: Order Comment: Speci men Type: SWAB Ordering Facility: [facility] Address: [address] [place] [address] Performed By: #### 3 6902-5 #### [facility] IA [id number] [address] [place] [address] [place] Potassium [Moles/Vol] 5.3 mmol/L Normal 2.5-6.0 [facility] Comment on above: Order Comment: Speci men Type: SWAB Ordering Facility: [facility] Address: [address] [place] [address] Performed By: #### 3 6902-5 #### [facility] CLIA [id number] [address] [place] [address] [place] Sodium [Moles/Vol] 131 mmol/L Low 136-144 [facility] Comment on above: Order Comment: Speci men Type: SWAB Ordering Facility: [facility] Address: [address] [place], [place] [address], [place] [address] Performed By: #### 3 6902-5 #### [facility] CLIA [id number] [address] [place], [place] [address] [place] HISTORY PHYSICALon HISTORY PHYSICAL HNO ID: [id number] Author: Yimi Leory APRN.[employer] Service: Critical Care Author Type: Nurse Practitioner Type: HANDP Filed: 02/02/2023 9:48 AM Note Text: [facility] SERVICE DATE: February 02, 2023 SERVICE TIME: 919 Consulting Doctor: Dr Diana CHIEF COMPLAINT: DKA HPI: This is a 27-year-old white female who presented 2 days ago on 01/31 secondary to nausea and vomiting at home. Patient has a known history of diabetic gastroparesis. She follows in [facility]. She was admitted to [place]. Unfortunately she has not been tolerating p.o. [...] pump (JUSTIN (more content not included)... Normal [facility] KETONES/ACETONE/BHBon 2022 Beta hydroxybutyrate [Moles/Vol] >6.00 High 0.02-0.27 [facility] Comment on above: Order Comment: Jon russ Type: SWAB Ordering Facility: [facility] Address: [address] [place] [address] Result Comment: Bloo d ketone levels will vary depending on several factors (for example, food intake, alcohol intake and conditions such as ketoacidosis). Patients should be fasting 12 hours prior to collection. Patient samples with high levels of M-Protein (i.e. Gammopathy) may affect the accuracy of this assay. Performed By: #### 3 6902-5 #### [facility] CLIA [id number] [address] [place] [address] [place] Beta hydroxybutyrate [Moles/Vol] 5.70 mmol/L High 0.02-0.27 [facility] Comment on above: Order Comment: Jon russ Type: SWAB Ordering Facility: [facility] Address: [address] [place], [place] [id number] Result Comment: Bloo d ketone levels will vary depending on several factors (for example, food intake, alcohol intake and conditions such as ketoacidosis). Patients should be fasting 12 hours prior to collection. Patient samples with high levels of M-Protein (i.e. Gammopathy) may affect the accuracy of this assay. Performed By: #### 3 6902-5 #### [facility] CLIA [id number] [address] [place], [place] [address] [place] Magnesium SerPl-mCncon 02-02 Magnesium [Mass/Vol] 2.3 mg/dL Normal 1.6-2.6 [facility] Comment on above: Order Comment: Jon russ Type: SWAB Ordering Facility: [facility] Address: [address] [id number] Performed By: #### 3 6902-5 #### [facility] CLIA [id number] [address] [place] [address] [place] Procalcitonin SerPl-mCncon 0 02-02-2023 Procalcitonin [Mass/Vol] 0.33 ng/mL Normal 0.00-0.50 [facility] Comment on above: Order Comment: Jon russ Type: BLOOD SPECIMEN Ordering Facility: [facility] Address: [address] [place] [address] Result Comment: PCT Concentration Interpretation PCT <=0.1 [...] shock. Performed By: #### 3 1201-7, 5195-3, 87247-4, SYPH #### [facility] CLIA [id number] [address] [place], [place] [address] [place] Basic metabolic 2000 panelon 02-01-2023 Anion gap [Moles/Vol] 16 mmol/L Normal 5-16 [facility] Comment on above: Order Comment: Jon russ Type: SWAB Ordering Facility: [facility] Address: [address] [id number] Performed By: #### 3 6902-5 #### [facility] CLIA [id number] [address] [place] [address] [place] Calcium [Mass/Vol] 8.4 mg/dL Low 8.5-10.5 [facility] Comment on above: Order Comment: Speci men Type: SWAB Ordering Facility: [facility] Address: [address] [address] Performed By: #### 3 6902-5 #### [facility] CLIA [id number] [address] [place] [address] [place] Chloride [Moles/Vol] 108 mmol/L High 98-107 [facility] Comment on above: Order Comment: Speci men Type: SWAB Ordering Facility: [facility] Address: [address] [address] Performed By: #### 3 6902-5 #### [facility] CLIA [id number] [address] [place] [address] [place] CO2 [Moles/Vol] 15 mmol/L Low 21-32 [facility] Comment on above: Order Comment: Speci men Type: SWAB Ordering Facility: [facility] Address: [address] [place] [address] Performed By: #### 3 6902-5 #### [facility] CLIA [id number] [address] [place] [address] [place] Creatinine [Mass/Vol] 0.89 mg/dL Normal 0.51-0.95 [facility] Comment on above: Order Comment: Speci men Type: SWAB Ordering Facility: [facility] Address: [address] [address] Result Comment: Cleopatra ents receiving either N-Acetylcysteine (NAC) or Metamizole prior to venipuncture, may have falsely depressed results. Performed By: #### 3 6902-5 #### [facility] CLIA [id number] [address] [place] [address] [place] ESTIMATED GLOMERULAR FILTRATION RATE 91 mL/min/1.73m??? Normal >=60 [facility] Comment on above: Order Comment: Jon russ Type: SWAB Ordering Facility: [facility] Address: [address] [place] [phone] Result Comment: Janett mated Glomerular Filtration Rate [...] GFR. Performed By: #### 3 6902-5 #### [facility] CLIA [id number] [address] [place] [address] [place] Glucose [Mass/Vol] 351 mg/dL High 70-100 [facility] Comment on above: Order Comment: Jon russ Type: SWAB Ordering Facility: [facility] Address: [address] [place] [phone] Result Comment: The [place] Diabetes Association (ADA) provides guidance for cutoff [...] Standards of Medical Care in Diabetes 2016, [place] [employer] Association. Diabetes Care. 2016.39(Suppl 1). Results may be falsely elevated after the administration of Sulfapyridine. Results may be falsely depressed after the administration of Sulfasalazine. Performed By: #### 3 6902-5 #### [facility] CLIA [id number] [address] [place] [address] [place] Potassium [Moles/Vol] 4.0 mmol/L Normal 3.5-5.1 [facility] Comment on above: Order Comment: Speci men Type: SWAB Ordering Facility: [facility] Address: [address] [address] Performed By: #### 3 6902-5 #### [facility] CLIA [id number] [address] [place] [address] [place] Sodium [Moles/Vol] 139 mmol/L Normal 136-145 [facility] Comment on above: Order Comment: Speci men Type: SWAB Ordering Facility: [facility] Address: [address] [address] Performed By: #### 3 6902-5 #### [facility] CLIA [id number] [address] [place] [address] [place] Urea nitrogen [Mass/Vol] 19 mg/dL Normal 7-26 [facility] Comment on above: Order Comment: Speci men Type: SWAB Ordering Facility: [facility] Address: [address] [address] Performed By: #### 3 6902-5 #### [facility] CLIA [id number] [address] [place] [address] [place] CBC panel Auto (Bld)on 02-01 Erythrocyte distribution width (RBC) [Ratio] 13.3 % Normal 11.5-15.0 [facility] Comment on above: Order Comment: Speci men Type: BLOOD SPECIMENOrdering Facility: [facility] Address: [address] [address] Performed By: #### L [id number] #### [facility] CLIA [id number] [address] [place] [address] [place] Hematocrit (Bld) [Volume fraction] 38.4 % Normal 36.0-46.0 [facility] Comment on above: Order Comment: Speci men Type: BLOOD SPECIMENOrdering Facility: [facility] Address: [address] [address] Performed By: #### L [id number] #### [facility] CLIA [id number] [address] [place] Hemoglobin (Bld) [Mass/Vol] 12.6 g/dL Normal 11.5-15.5 [facility] Comment on above: Order Comment: Speci men Type: BLOOD SPECIMENOrdering Facility: [facility] Address: [address] [place] [address] Performed By: #### L [id number] #### [facility] CLIA [id number] [address] [place] [address] [place] MCH (RBC) [Entitic mass] 29.2 pg Normal 26.0-34.0 [facility] Comment on above: Order Comment: Speci men Type: BLOOD SPECIMENOrdering Facility: [facility] Address: [address] [place] [address] Performed By: #### L [id number] #### [facility] CLIA [id number] [address] [place] [address] [place] MCHC (RBC) [Mass/Vol] 32.8 g/dL Normal 30.5-36.0 [facility] Comment on above: Order Comment: Speci men Type: BLOOD SPECIMENOrdering Facility: [facility] Address: [address] [place] [address] Performed By: #### L [id number] #### [facility] CLIA [id number] [address] [place] [address] [place] MCV (RBC) [Entitic vol] 88.9 fL Normal 80.0-100.0 [facility] Comment on above: Order Comment: Speci men Type: BLOOD SPECIMENOrdering Facility: [facility] Address: [address] [place] [address] Performed By: #### L [id number] #### [facility] CLIA [id number] [address] [place] [address] [place] [facility] [place] Nucleated RBC (Bld) [#/Vol] 10*3/uL Normal <0.01 [facility] Comment on above: Order Comment: Speci men Type: BLOOD SPECIMENOrdering Facility: [facility] Address: [address] Performed By: #### L [id number] #### [facility] CLIA [id number] [address] [place] [address] [place] Platelet mean volume (Bld) [Entitic vol] 13.5 fL High 9.0-12.7 [facility] Comment on above: Order Comment: Speci men Type: BLOOD SPECIMENOrdering Facility: [facility] Address: [address] Performed By: #### L [id number] #### [facility] CLIA [id number] [address] [place] [address] [place] Platelets (Bld) [#/Vol] 139 10*3/uL Low 150-400 [facility] Comment on above: Order Comment: Speci men Type: BLOOD SPECIMENOrdering Facility: [facility] Address: [address] [place] [address] Result Comment: No c lot detected. Performed By: #### L [id number] #### [facility] CLIA [id number] [address] [place] [address] [place] RBC (Bld) [#/Vol] 4.32 10*6/uL Normal 3.90-5.20 [facility] Comment on above: Order Comment: Speci men Type: BLOOD SPECIMENOrdering Facility: [facility] Address: [address] Performed By: #### L [id number] #### [facility] CLIA [id number] [address] [place] [address] [place] WBC (Bld) [#/Vol] 16.97 10*3/uL High 3.70-11.00 [facility] Comment on above: Order Comment: Speci men Type: BLOOD SPECIMENOrdering Facility: [facility] Address: [address] Performed By: #### L [id number] #### [facility] CLIA [id number] [address] [place] [address] OF [facility] Dipak 02-01-2023 CNPN Telephone (FAMPOR) KATHLEEN VILLA ([id number]) 1995 F CHT Date Time Provider Department [...] (BAQSIMI) 3 mg/actuation nasal spray Use 1 [place] in the nose as needed for low [...] irregularity [N92.6] (more content not included)... Normal [facility] Comprehensive metabolic 2000 panelon 02-01-2023 Albumin [Mass/Vol] 3.8 g/dL Normal 3.2-5.0 [facility] Comment on above: Order Comment: Speci men Type: BLOOD SPECIMENOrdering Facility: [facility] Address: [address] [place] [address] Performed By: #### L [id number] #### [facility] CLIA [id number] [address] [place] [address] [place] [facility] ALP [Catalytic activity/Vol] 84 U/L Normal 45-117 [facility] Comment on above: Order Comment: Speci men Type: BLOOD SPECIMENOrdering Facility: [facility] Address: [address] [place] [address] Performed By: #### L [id number] #### [facility] CLIA [id number] [address] [place] [address] [place] [facility] ALT [Catalytic activity/Vol] 19 U/L Normal 13-61 [facility] Comment on above: Order Comment: Speci men Type: BLOOD SPECIMENOrdering Facility: [facility] Address: [address] [place] [address] Result Comment: Resu lts may be falsely depressed after the administration of Sulfasalazine and/or Sulfapyridine. Performed By: #### L [id number] #### [facility] CLIA [id number] [address] [place] [address] [place] Anion gap [Moles/Vol] 16 mmol/L Normal 5-16 [facility] Comment on above: Order Comment: Speci men Type: BLOOD SPECIMENOrdering Facility: [facility] Address: [address] [place] [address] Performed By: #### L [id number] #### [facility] CLIA [id number] [address] [place] [address] [place] AST [Catalytic activity/Vol] 15 U/L Normal 8-34 [facility] Comment on above: Order Comment: Speci men Type: BLOOD SPECIMENOrdering Facility: [facility] Address: [address] [place] [address] Result Comment: Resu lts may be falsely depressed after the administration of Sulfasalazine and/or Sulfapyridine. Performed By: #### L [id number] #### [facility] CLIA [id number] [address] [place] [address] [place] Bilirubin [Mass/Vol] 0.7 mg/dL Normal 0.2-1.0 [facility] Comment on above: Order Comment: Speci men Type: BLOOD SPECIMENOrdering Facility: [facility] Address: [address] [place] [address] Performed By: #### L [id number] #### [facility] CLIA [id number] [address] [place] [address] [place] Calcium [Mass/Vol] 8.7 mg/dL Normal 8.5-10.5 [facility] Comment on above: Order Comment: Speci men Type: BLOOD SPECIMENOrdering Facility: [facility] Address: [address] [place] [address] Performed By: #### L [id number] #### [facility] CLIA [id number] [address] [place] [address] [place] Chloride [Moles/Vol] 110 mmol/L High 98-107 [facility] Comment on above: Order Comment: Speci men Type: BLOOD SPECIMENOrdering Facility: [facility] Address: [address] [place] [address] Performed By: #### L [id number] #### [facility] CLIA [id number] [address] [place] [address] [place] CO2 [Moles/Vol] 15 mmol/L Low 21-32 [facility] Comment on above: Order Comment: Speci men Type: BLOOD SPECIMENOrdering Facility: [facility] Address: [address] [place] [id number] Performed By: #### L [id number] #### [facility] CLIA [id number] [address] [place] [address] [place] Creatinine [Mass/Vol] 0.66 mg/dL Normal 0.51-0.95 [facility] Comment on above: Order Comment: Jon russ Type: BLOOD SPECIMENOrdering Facility: [facility] Address: [address] [place] [address] Result Comment: Cleopatra ents receiving either N-Acetylcysteine (NAC) or Metamizole prior to venipuncture, may have falsely depressed results. Performed By: #### L [id number] #### [facility] CLIA [id number] [address] [place] [address] [place] ESTIMATED GLOMERULAR FILTRATION RATE 123 mL/min/1.73m??? Normal >=60 [facility] Comment on above: Order Comment: Jon russ Type: BLOOD SPECIMENOrdering Facility: [facility] Address: [address] [place] [address] Result Comment: Janett mated Glomerular Filtration Rate [...] reflect actual GFR. Performed By: #### L [id number] #### [facility] CLIA [id number] [address] [place] [address] [place] Glucose [Mass/Vol] 311 mg/dL High 70-100 [facility] Comment on above: Order Comment: Jon russ Type: BLOOD SPECIMENOrdering Facility: [facility] Address: [address] [address] Result Comment: The [place] Diabetes Association (ADA) provides guidance for cutoff [...] Standards of Medical Care in Diabetes 2016, [place] [employer]. Diabetes Care. 2016.39(Suppl 1). Results may be falsely elevated after the administration of Sulfapyridine. Results may be falsely depressed after the administration of Sulfasalazine. Performed By: #### L [id number] #### [facility] CLIA [id number] [address] [place] [address] [place] Potassium [Moles/Vol] 4.4 mmol/L Normal 3.5-5.1 [facility] Comment on above: Order Comment: Jon russ Type: BLOOD SPECIMENOrdering Facility: [facility] Address: [address] [place] [address] Performed By: #### L [id number] #### [facility] CLIA [id number] [address] [place] [address] [place] Protein [Mass/Vol] 6.5 g/dL Normal 6.0-8.5 [facility] Comment on above: Order Comment: Jon russ Type: BLOOD SPECIMENOrdering Facility: [facility] Address: [address] [place] [address] Performed By: #### L [id number] #### [facility] CLIA [id number] [address] [place] [address] [place] Sodium [Moles/Vol] 141 mmol/L Normal 136-145 [facility] Comment on above: Order Comment: Jon russ Type: BLOOD SPECIMENOrdering Facility: [facility] Address: [address] [place] [address] Performed By: #### L [id number] #### [facility] CLIA [id number] [address] [place] [address] [place] Urea nitrogen [Mass/Vol] 15 mg/dL Normal 7-26 [facility] Comment on above: Order Comment: Speci men Type: BLOOD SPECIMENOrdering Facility: [facility] Address: [address], [place] [address] Performed By: #### L [id number] #### [facility] CLIA [id number] [address] [place] [address] [place] ED PROV NOTEon 02-01-2023 ED PROV NOTE HNO ID: [id number] Author: Adryan Alexis PA-C Service: ? Author Type: Physician Appliance Counselor Type: ED Provider Notes Filed: 01/31/2023 11:39 [...] SEPSIS LACT (more content not included)... Normal [facility] HISTORY PHYSICALon HISTORY PHYSICAL HNO ID: [id number] Author: Camilo Centeno DO Service: Hospital Medicine Author Type: Physician Type: HANDP Filed: 02/01/2023 8:08 AM Note Text: HISTORY AND PHYSICAL SERVICE DATE: 01/31/2023 SERVICE TIME: 11:46 PM PRIMARY CARE PHYSICIAN: Vivi Smith MD Subjective CHIEF COMPLAINT: Abdominal pain, nausea, and vomiting HPI: Patient is a 27-year-old female who presented to the [facility] emergency department earlier this evening [...] (BAQSIMI) 3 mg/actuation nasal spray Use 1 [place] in the nose as needed for low [...] or rhonchi (more content not included)... Normal [facility] Magnesium SerPl-mCncon 02-01 Magnesium [Mass/Vol] 1.7 mg/dL Normal 1.6-2.6 [facility] Comment on above: Order Comment: Speci men Type: BLOOD SPECIMENOrdering Facility: [facility] Address: [address] [place] [id number] Performed By: #### L [id number] #### [facility] CLIA [id number] [facility] [place] [address] [place] NURSING PROGon 02-01-2023 NURSING PROG HNO ID: [id number] Author: Avani Seo RN Service: Nursing Author [...] error. It must be returned to the culvert installer. It is now disconnected and she will now take sliding scale insulin for coverage. Normal [facility] Urinalysis complete panel (U )on 02-01-2023 Bacteria LM.HPF (Urine sed) [#/Area] Rare Abnormal None Seen [facility] Comment on above: Order Comment: Speci men Type: URINE SPECIMENOrdering Facility: [facility] Address: [address] [place] [address] Performed By: #### L [id number] #### [facility] CLIA [id number] [address] [place] [address] [place] Bilirubin Ql (U) Negative Normal Negative [facility] Comment on above: Order Comment: Speci men Type: URINE SPECIMENOrdering Facility: [facility] Address: [address] [place] [address] Performed By: #### L [id number] #### [facility] CLIA [id number] [address] [place] [address] [place] Clarity (Unsp spec) Clear Normal Clear [facility] Comment on above: Order Comment: Speci men Type: URINE SPECIMENOrdering Facility: [facility] Address: [address] [address] Performed By: #### L [id number] #### [facility] CLIA [id number] [address] [place] [address] [place] Color (U) Yellow Normal Yellow [facility] Comment on above: Order Comment: Speci men Type: URINE SPECIMENOrdering Facility: [facility] Address: [address] [address] Performed By: #### L [id number] #### [facility] CLIA [id number] [address] [place] [address] [place] Epithelial cells LM.HPF (Urine sed) [#/Area] Few Normal [facility] Comment on above: Order Comment: Speci men Type: URINE SPECIMENOrdering Facility: [facility] Address: [address] [place] [address] Performed By: #### L [id number] #### [facility] CLIA [id number] [address] [place] [address] [place] Glucose Test strip (U) [Mass/Vol] 3+ Abnormal Negative [facility] Comment on above: Order Comment: Speci men Type: URINE SPECIMENOrdering Facility: [facility] Address: [address] [place] [address] Performed By: #### L [id number] #### [facility] CLIA [id number] [address] [place] [address] [place] Hemoglobin Ql (U) 2+ Abnormal Negative [facility] Comment on above: Order Comment: Speci men Type: URINE SPECIMENOrdering Facility: [facility] Address: [address] [place] [address] Performed By: #### L [id number] #### [facility] CLIA [id number] [address] [place] [address] [place] Ketones Ql (U) 2+ Abnormal Negative [facility] Comment on above: Order Comment: Speci men Type: URINE SPECIMENOrdering Facility: [facility] Address: [address] [address] Performed By: #### L [id number] #### [facility] CLIA [id number] [address] [place] [address] Leukocyte esterase Test strip Ql (U) Negative Normal Negative [facility] Comment on above: Order Comment: Speci men Type: URINE SPECIMENOrdering Facility: [facility] Address: [address] [place] [address] Performed By: #### L [id number] #### [facility] CLIA [id number] [address] [place] [address] [place] Nitrite Ql (U) Negative Normal Negative [facility] Comment on above: Order Comment: Speci men Type: URINE SPECIMENOrdering Facility: [facility] Address: [address] [place] [address] Performed By: #### L [id number] #### [facility] CLIA [id number] [address] [place] [address] [place] pH (U) 7.0 [pH] Normal 5.0-8.0 [facility] Comment on above: Order Comment: Speci men Type: URINE SPECIMENOrdering Facility: [facility] Address: [address] [place] [address] Performed By: #### L [id number] #### [facility] CLIA [id number] [address] [place] [address] [place] Protein (U) [Mass/Vol] 1+ Abnormal Negative [facility] Comment on above: Order Comment: Speci men Type: URINE SPECIMENOrdering Facility: [facility] Address: [address] [place] [address] Performed By: #### L [id number] #### [facility] CLIA [id number] [address] [place] [address] [place] RBC LM.HPF (Urine sed) [#/Area] 3-5 /HPF Abnormal 0-3 /HPF [facility] Comment on above: Order Comment: Speci men Type: URINE SPECIMENOrdering Facility: [facility] Address: [address] [address] Performed By: #### L [id number] #### [facility] CLIA [id number] [address] [place] [address] [place] Specific gravity (U) [Rel density] 1.021 Normal 1.005-1.030 [facility] Comment on above: Order Comment: Speci men Type: URINE SPECIMENOrdering Facility: [facility] Address: [address] [address] Performed By: #### L [id number] #### [facility] CLIA [id number] [address] [place] [address] [place] Urobilinogen Ql (U) Negative Normal Negative [facility] Comment on above: Order Comment: Speci men Type: URINE SPECIMENOrdering Facility: [facility] Address: [address] [address] Performed By: #### L [id number] #### [facility] CLIA [id number] [address] [place] [address] [place] WBC LM.HPF (Urine sed) [#/Area] 0-5 /HPF Normal 0-5 /HPF [facility] Comment on above: Order Comment: Speci men Type: URINE SPECIMENOrdering Facility: [facility] Address: [address] [address] Performed By: #### L [id number] #### [facility] CLIA [id number] [address] [place] [address] [place] Basic metabolic 2000 panelon 01-31-2023 Anion gap [Moles/Vol] 16 mmol/L Normal 5-16 [facility] Comment on above: Order Comment: Speci men Type: BLOOD SPECIMENOrdering Facility: [facility] Address: [address] [place] [address] Performed By: #### 2 4325-3, 73630-9, HCG ####[facility]ORY[facility]IA [id number] [place] [address] [place] Calcium [Mass/Vol] 9.9 mg/dL Normal 8.5-10.5 [facility] Comment on above: Order Comment: Speci men Type: BLOOD SPECIMENOrdering Facility: [facility] Address: [address] [place] [address] Performed By: #### 2 4325-3, 01048-4, HCG ####[facility]ORY[facility]IA [id number] [place] [address] [place] Chloride [Moles/Vol] 110 mmol/L High 98-107 [facility] Comment on above: Order Comment: Speci men Type: BLOOD SPECIMENOrdering Facility: [facility] Address: [address] [place] [address] Performed By: #### 2 4325-3, 78785-0, HCG ####[facility]ORY[facility]IA [id number] [place] [address] [place] CO2 [Moles/Vol] 15 mmol/L Low 21-32 [facility] Comment on above: Order Comment: Speci men Type: BLOOD SPECIMENOrdering Facility: [facility] Address: [address] [place] [address] Performed By: #### 2 4325-3, 97950-4, HCG ####[facility] LABORATORYCLIA [id number] [place] [address] [place] Creatinine [Mass/Vol] 0.65 mg/dL Normal 0.51-0.95 [facility] Comment on above: Order Comment: Speci men Type: BLOOD SPECIMENOrdering Facility: [facility] Address: [address] [place] [address] Result Comment: Cleopatra ents receiving either N-Acetylcysteine (NAC) or Metamizole prior to venipuncture, may have falsely depressed results. Performed By: #### 2 4325-3, 18942-4, HCG ####[facility] LABORATORYCLIA [id number] [place] [address] [place] ESTIMATED GLOMERULAR FILTRATION RATE 123 mL/min/1.73m??? Normal >=60 [facility] Comment on above: Order Comment: Jon russ Type: BLOOD SPECIMENOrdering Facility: [facility] Address: [address] [place] [address] Result Comment: Janett mated Glomerular Filtration Rate [...] actual GFR. Performed By: #### 2 4325-3, 65921-3, HCG ####[facility] LABORATORYCLIA [id number] [place] [address] [place] Glucose [Mass/Vol] 248 mg/dL High 70-100 [facility] Comment on above: Order Comment: Jon russ Type: BLOOD SPECIMENOrdering Facility: [facility] Address: [address] [facility] [place] [address] Result Comment: The [place] Diabetes Association (ADA) provides guidance for cutoff [...] Standards of Medical Care in Diabetes 2016, [place] [employer]. Diabetes Care. 2016.39(Suppl 1). Results may be falsely elevated after the administration of Sulfapyridine. Results may be falsely depressed after the administration of Sulfasalazine. Performed By: #### 2 4325-3, 42897-1, HCG ####[facility] LABORATORYCLIA [id number] [place] [address] [place] Potassium [Moles/Vol] 3.8 mmol/L Normal 3.5-5.1 [facility] Comment on above: Order Comment: Speci men Type: BLOOD SPECIMENOrdering Facility: [facility] Address: [address] [place] [address] Performed By: #### 2 4325-3, 80842-9, HCG ####[facility] LABORATORYCLIA [id number] [place] [address] [place] Sodium [Moles/Vol] 141 mmol/L Normal 136-145 [facility] Comment on above: Order Comment: Speci men Type: BLOOD SPECIMENOrdering Facility: [facility] Address: [address] [place] [address] Performed By: #### 2 4325-3, 05786-9, HCG ####[facility] LABORATORYCLIA [id number] [address] [place] Urea nitrogen [Mass/Vol] 17 mg/dL Normal 7-26 [facility] Comment on above: Order Comment: Speci men Type: BLOOD SPECIMENOrdering Facility: [facility] Address: [address] [place] [address] Performed By: #### 2 4325-3, 45348-0, HCG ####[facility] LABORATORYCLIA [id number] [place] [address] [place] CBC W Auto Differential pane l (Bld)on 01-31-2023 Basophils (Bld) [#/Vol] 0.07 10*3/uL Normal <0.11 [facility] Comment on above: Order Comment: Speci men Type: BLOOD SPECIMENOrdering Facility: [facility] Address: [address] [place] [address] Performed By: #### 5 7021-8 ####[facility] LABORATORYCLIA [id number] [address] [place] Basophils/100 WBC (Bld) 0.5 % Normal [facility] Comment on above: Order Comment: Speci men Type: BLOOD SPECIMENOrdering Facility: [facility] Address: [address] [place] [address] Performed By: #### 5 7021-8 ####[facility] LABORATORYCLIA [id number] [address] [place] Differential cell count method Nom (Bld) Auto Normal [facility] Comment on above: Order Comment: Speci men Type: BLOOD SPECIMENOrdering Facility: [facility] Address: [address] [place] [place] [address] Performed By: #### 5 7021-8 ####[facility] LABORATORYCLIA [id number] [place] [address] [place] Eosinophils (Bld) [#/Vol] 10*3/uL Normal <0.46 [facility] Comment on above: Order Comment: Speci men Type: BLOOD SPECIMENOrdering Facility: [facility] Address: [address] [place] [address] Performed By: #### 5 7021-8 ####[facility] LABORATORYCLIA [id number] [address] Eosinophils/100 WBC (Bld) 0.1 % Normal [facility] Comment on above: Order Comment: Speci men Type: BLOOD SPECIMENOrdering Facility: [facility] Address: [address] [place] [address] Performed By: #### 5 7021-8 ####[facility] LABORATORYCLIA [id number] [address] [place] Erythrocyte distribution width (RBC) [Ratio] 12.9 % Normal 11.5-15.0 [facility] Comment on above: Order Comment: Speci men Type: BLOOD SPECIMENOrdering Facility: [facility] Address: [address] [place] [address] Performed By: #### 5 7021-8 ####[facility] LABORATORYCLIA [id number] [address] [place] Hematocrit (Bld) [Volume fraction] 43.2 % Normal 36.0-46.0 [facility] Comment on above: Order Comment: Speci men Type: BLOOD SPECIMENOrdering Facility: [facility] Address: [address] [place] [address] Performed By: #### 5 7021-8 ####[facility] LABORATORYCLIA [id number] [place] [address] [place] Hemoglobin (Bld) [Mass/Vol] 14.8 g/dL Normal 11.5-15.5 [facility] Comment on above: Order Comment: Speci men Type: BLOOD SPECIMENOrdering Facility: [facility] Address: [address] [place] [place] [address] Performed By: #### 5 7021-8 ####[facility] LABORATORYCLIA [id number] [place] [address] [place] Immature granulocytes (Bld) [#/Vol] 0.12 10*3/uL High <0.10 [facility] Comment on above: Order Comment: Speci men Type: BLOOD SPECIMENOrdering Facility: [facility] Address: [address] [place] [address] Performed By: #### 5 7021-8 ####[facility] LABORATORYCLIA [id number] [place] [address] [place] Immature granulocytes/100 WBC (Bld) 0.8 % Normal [facility] Comment on above: Order Comment: Speci men Type: BLOOD SPECIMENOrdering Facility: [facility] Address: [address] [place] [address] Performed By: #### 5 7021-8 ####[facility] LABORATORYCLIA [id number] [place] [address] [place] Lymphocytes (Bld) [#/Vol] 2.36 10*3/uL Normal 1.00-4.00 [facility] Comment on above: Order Comment: Speci men Type: BLOOD SPECIMENOrdering Facility: [facility] Address: [address] [place] [place] [address] Performed By: #### 5 7021-8 ####[facility] LABORATORYCLIA [id number] [place] [address] [place] Lymphocytes/100 WBC (Bld) 15.3 % Normal [facility] Comment on above: Order Comment: Speci men Type: BLOOD SPECIMENOrdering Facility: [facility] Address: [address] [place] [place] [address] Performed By: #### 5 7021-8 ####[facility] LABORATORYCLIA [id number] [address] [place] MCH (RBC) [Entitic mass] 29.1 pg Normal 26.0-34.0 [facility] Comment on above: Order Comment: Speci men Type: BLOOD SPECIMENOrdering Facility: [facility] Address: [address] [place] [address] Performed By: #### 5 7021-8 ####[facility] LABORATORYCLIA [id number] [address] [place] MCHC (RBC) [Mass/Vol] 34.3 g/dL Normal 30.5-36.0 [facility] Comment on above: Order Comment: Speci men Type: BLOOD SPECIMENOrdering Facility: [facility] Address: [address] [place] [address] Performed By: #### 5 7021-8 ####[facility] LABORATORYCLIA [id number] [address] MCV (RBC) [Entitic vol] 84.9 fL Normal 80.0-100.0 [facility] Comment on above: Order Comment: Speci men Type: BLOOD SPECIMENOrdering Facility: [facility] Address: [address] [place] [address] Performed By: #### 5 7021-8 ####[facility] LABORATORYCLIA [id number] [address] Monocytes (Bld) [#/Vol] 0.73 10*3/uL Normal <0.87 [facility] Comment on above: Order Comment: Speci men Type: BLOOD SPECIMENOrdering Facility: [facility] Address: [address] [place] [address] Performed By: #### 5 7021-8 ####[facility] LABORATORYCLIA [id number] [place] [address] [place] Monocytes/100 WBC (Bld) 4.7 % Normal [facility] Comment on above: Order Comment: Speci men Type: BLOOD SPECIMENOrdering Facility: [facility] Address: [address] [place] [address] Performed By: #### 5 7021-8 ####[facility] LABORATORYCLIA [id number] [place] [address] [place] Neutrophils (Bld) [#/Vol] 12.16 10*3/uL High 1.45-7.50 [facility] Comment on above: Order Comment: Speci men Type: BLOOD SPECIMENOrdering Facility: [facility] Address: [address] [place] [address] Performed By: #### 5 7021-8 ####[facility] LABORATORYCLIA [id number] [place] [address] [place] Neutrophils/100 WBC (Bld) 78.6 % Normal [facility] Comment on above: Order Comment: Speci men Type: BLOOD SPECIMENOrdering Facility: [facility] Address: [address] [place] [address] Performed By: #### 5 7021-8 ####[facility] LABORATORYCLIA [id number] [place] [address] [place] Nucleated RBC (Bld) [#/Vol] 10*3/uL Normal <0.01 [facility] Comment on above: Order Comment: Speci men Type: BLOOD SPECIMENOrdering Facility: [facility] Address: [address] [place] [address] Performed By: #### 5 7021-8 ####[facility] LABORATORYCLIA [id number] [place] [address] [place] Nucleated RBC/100 WBC (Bld) [Ratio] 0.0 /100 WBC Normal [facility] Comment on above: Order Comment: Speci men Type: BLOOD SPECIMENOrdering Facility: [facility] Address: [address] [address] Performed By: #### 5 7021-8 ####[facility] LABORATORYCLIA [id number] [place] [address] [place] Platelet mean volume (Bld) [Entitic vol] 13.0 fL High 9.0-12.7 [facility] Comment on above: Order Comment: Speci men Type: BLOOD SPECIMENOrdering Facility: [facility] Address: [address] [place] [address] Performed By: #### 5 7021-8 ####[facility] LABORATORYCLIA [id number] [place] [address] [place] Platelets (Bld) [#/Vol] 180 10*3/uL Normal 150-400 [facility] Comment on above: Order Comment: Speci men Type: BLOOD SPECIMENOrdering Facility: [facility] Address: [address] [place] [address] Result Comment: No c lot detected. Performed By: #### 5 7021-8 ####[facility] LABORATORYCLIA [id number] [place] [address] [place] RBC (Bld) [#/Vol] 5.09 10*6/uL Normal 3.90-5.20 [facility] Comment on above: Order Comment: Speci men Type: BLOOD SPECIMENOrdering Facility: [facility] Address: [address] Performed By: #### 5 7021-8 ####[facility] LABORATORYCLIA [id number] [place] [address] [place] WBC (Bld) [#/Vol] 15.46 10*3/uL High 3.70-11.00 [facility] Comment on above: Order Comment: Speci men Type: BLOOD SPECIMENOrdering Facility: [facility] Address: [address] [address] Performed By: #### 5 7021-8 ####[facility] LABORATORYCLIA [id number] [place] [address] [place] [facility] ECG COMPLETEon 01-31-2023 ECG COMPLETE Ventricular Rate : 8 0 BPM Atrial Rate : 80 BPM P-R Interval : 144 ms QRS Duration : 84 ms Q-T Interval : 402 ms QTC Calculation(Bazett) : 463 ms Calculated P Dana : 26 degrees Calculated R Dana : 78 degrees Calculated T Dana : 72 degrees Normal sinus rhythm Nonspecific T wave abnormality Abnormal ECG When compared with ECG of 23-NOV-2022 18:14, Nonspecific T wave abnormality now evident in Lateral leads QT has lengthened Confirmed by ANASTASIA CHENG MD ([id number]) on 01/31/2023 11:03:12 PM NAME : KAHTLEEN VILLA PID : [id number] : 1995 Gender : Female Race : ORD : [id number] Procedure Date : Jan 31 2023 19:42:30 Edit Date : Jan 31 2023 23:03:15 Diagnosis: Normal sinus rhythm Nonspecific T wave abnormality Abnormal ECG When compared with ECG of 23-NOV-2022 18:14, Nonspecific T wave abnormality now evident in Lateral leads QT has lengthened Confirmed by ANASTASIA CHENG MD ([id number]) on 01/31/2023 11:03:12 PM Test Reason : STAT Location : 0 : ED 9 Overread By : ANASTASIA CHENG MD Edited By : ANASTASIA CHENG MD Referred By : , Acquired by : [facility], [facility] ED NOTEon 01-31-2023 ED NOTE HNO ID: [id number] Author: Clementina Alarcon RN Service: Nursing Author Type: Registered Nurse Type: ED Notes Filed: 01/31/2023 9:06 PM Note Text: Report to oncto nurse. [facility] ED NOTE HNO ID: [id number] Author: Blaise Flower RN Service: ? Author Type: Registered Nurse Type: ED Notes Filed: 01/31/2023 7:21 PM Note Text: Bed: 09-ED Expected date: 01/31/23 Expected time: Means of arrival: Comments: [facility] ED Triage Noteon 01-31-2023 ED Triage Note HNO ID: [id number] Author: Huy Horton PA-C Service: ? Author Type: Physician Appliance Counselor Type: ED Triage Notes Filed: 01/31/2023 7:06 [...] and pending. SIGNATURE: Huy Horton PA-C Normal [facility] Gas and Carbon monoxide pane l (BldV)on 01-31-2023 BASE DEFICIT, VENOUS -2 mmol/L Normal -2-0 [facility] Comment on above: Order Comment: Speci men Type: VENOUS BLOOD SPECIMENOrdering Facility: [facility] Address: [address] [place] [address] Performed By: #### 2 4344-4 ####[facility] THERAPYCLIA [id number] [address] [place] Body temperature 98.6 [degF] Normal [facility] Comment on above: Order Comment: Speci men Type: VENOUS BLOOD SPECIMENOrdering Facility: [facility] Address: [address] [place] [address] Performed By: #### 2 4344-4 ####[facility]IR[facility] THERAPYCLIA [id number] [place] [address] [place] Calcium.ionized (Bld) [Mass/Vol] 1.11 mmol/L Normal 1.08-1.30 [facility] Comment on above: Order Comment: Speci men Type: VENOUS BLOOD SPECIMENOrdering Facility: [facility] Address: [address] [place] [address] Performed By: #### 2 4344-4 ####[facility] THERAPYCLIA [id number] [address] [place] Carboxyhemoglobin (BldV) [Mass fraction] 0.8 % Normal 0.0-2.0 [facility] Comment on above: Order Comment: Speci men Type: VENOUS BLOOD SPECIMENOrdering Facility: [facility] Address: [address] [place] [address] Result Comment: Carb oxyhemoglobin Reference Range for Smokers: 2.0-8.0% Performed By: #### 2 4344-4 ####[facility] THERAPYCLIA [id number] [place] [address] [place] CO2 (BldV) [Partial pressure] 22 mm[Hg] Low 42-55 [facility] Comment on above: Order Comment: Speci men Type: VENOUS BLOOD SPECIMENOrdering Facility: [facility] Address: [address] [place] [address] Performed By: #### 2 4344-4 ####[facility] THERAPYCLIA [id number] [place] [address] [place] Glucose [Mass/Vol] 303 mg/dL High 60-105 [facility] Comment on above: Order Comment: Speci men Type: VENOUS BLOOD SPECIMENOrdering Facility: [facility] Address: [address] [place] [address] Performed By: #### 2 4344-4 ####[facility] THERAPYCLIA [id number] [place] [address] [place] HCO3 (Bld) [Moles/Vol] 18 mmol/L Low 24-28 [facility] Comment on above: Order Comment: Speci men Type: VENOUS BLOOD SPECIMENOrdering Facility: [facility] Address: [address] [place] [address] Performed By: #### 2 4344-4 ####[facility] THERAPYCLIA [id number] [place] [address] [place] Hemoglobin (Bld) [Mass/Vol] 15.2 g/dL Normal 11.5-15.5 [facility] Comment on above: Order Comment: Speci men Type: VENOUS BLOOD SPECIMENOrdering Facility: [facility] Address: [address] [address] Performed By: #### 2 4344-4 ####[facility] THERAPYCLIA [id number] [place] [address] [place] Lactate [Moles/Vol] 2.1 mmol/L Normal 0.5-2.2 [facility] Comment on above: Order Comment: Speci men Type: VENOUS BLOOD SPECIMENOrdering Facility: [facility] Address: [address] [address] Performed By: #### 2 4344-4 ####[facility] THERAPYCLIA [id number] [place] [address] [place] Methemoglobin (Bld) [Mass fraction] 0.3 % Normal 0.0-1.5 [facility] Comment on above: Order Comment: Speci men Type: VENOUS BLOOD SPECIMENOrdering Facility: [facility] Address: [address] [address] Performed By: #### 2 4344-4 ####[facility] THERAPYCLIA [id number] [address] [place] O2 THERAPY RA=Room Air Normal [facility] Comment on above: Order Comment: Speci men Type: VENOUS BLOOD SPECIMENOrdering Facility: [facility] Address: [address] [address] Performed By: #### 2 4344-4 ####[facility] THERAPYCLIA [id number] [place] [address] [place] Oxygen (BldV) [Partial pressure] 28 mm[Hg] Low 35-45 [facility] Comment on above: Order Comment: Speci men Type: VENOUS BLOOD SPECIMENOrdering Facility: [facility] Address: [address] [address] Performed By: #### 2 4344-4 ####[facility] THERAPYCLIA [id number] [place] [address] [place] Oxyhemoglobin (BldV) [Mass fraction] 63 % Normal 4-98 [facility] Comment on above: Order Comment: Speci men Type: VENOUS BLOOD SPECIMENOrdering Facility: [facility] Address: [address] [address] Performed By: #### 2 4344-4 ####[facility] THERAPYCLIA [id number] [place] [address] [place] pH (BldV) 7.53 [pH] High 7.32-7.42 [facility] Comment on above: Order Comment: Speci men Type: VENOUS BLOOD SPECIMENOrdering Facility: [facility] Address: [address] [place] [address] Performed By: #### 2 4344-4 ####[facility] THERAPYCLIA [id number] [place] [address] [place] Potassium [Moles/Vol] 3.9 mmol/L Normal 2.5-6.0 [facility] Comment on above: Order Comment: Speci men Type: VENOUS BLOOD SPECIMENOrdering Facility: [facility] Address: [address] [place] [address] Performed By: #### 2 4344-4 ####[facility] THERAPYCLIA [id number] [address] [place] Sodium [Moles/Vol] 138 mmol/L Normal 136-144 [facility] Comment on above: Order Comment: Speci men Type: VENOUS BLOOD SPECIMENOrdering Facility: [facility] Address: [address] [place] [address] Performed By: #### 2 4344-4 ####[facility] THERAPYCLIA [id number] [address] [place] HCG QUAL BLDon 01-31-2023 HCG, QUALITATIVE Negative Normal Negative [facility] Comment on above: Order Comment: Speci men Type: BLOOD SPECIMENOrdering Facility: [facility] Address: [address] [place] [address] Performed By: #### 2 4325-3, 68992-3, HCG ####[facility] LABORATORYCLIA [id number] [address] [place] HIGH SENSITIVITY TROPONIN Io n 01-31-2023 Tropinin I.cardiac panel High sensitivity method <2.5 Normal 0.0-34.0 [facility] Comment on above: Order Comment: Speci men Type: BLOOD SPECIMENOrdering Facility: [facility] Address: [address] [place] [address] Result Comment: This assay uses different antibodies than our current assay, and assays, even by the same culvert installer may recognize different regions of the antibody and cannot be used interchangeably. Expect results of this assay to run higher than the previous assay. Performed By: #### H STROP ####[facility] LABORATORYCLIA [id number] [address] [place] Hepatic function 2000 panelo n 01-31-2023 Albumin [Mass/Vol] 4.3 g/dL Normal 3.2-5.0 [facility] Comment on above: Order Comment: Speci men Type: BLOOD SPECIMENOrdering Facility: [facility] Address: [address] [place] [address] Performed By: #### 2 4325-3, 62634-1, HCG ####[facility] LABORATORYCLIA [id number] [address] [place] ALP [Catalytic activity/Vol] 93 U/L Normal 45-117 [facility] Comment on above: Order Comment: Speci men Type: BLOOD SPECIMENOrdering Facility: [facility] Address: [address] [place] [address] Performed By: #### 2 4325-3, 80658-4, HCG ####[facility] LABORATORYCLIA [id number] [address] STATES OF [facility] ALT [Catalytic activity/Vol] 21 U/L Normal 13-61 [facility] Comment on above: Order Comment: Speci men Type: BLOOD SPECIMENOrdering Facility: [facility] Address: [address] [place] [address] Result Comment: Resu lts may be falsely depressed after the administration of Sulfasalazine and/or Sulfapyridine. Performed By: #### 2 4325-3, 60206-9, HCG ####[facility] LABORATORYCLIA [id number] [place] [address] [place] [facility] AST [Catalytic activity/Vol] 19 U/L Normal 8-34 [facility] Comment on above: Order Comment: Speci men Type: BLOOD SPECIMENOrdering Facility: [facility] Address: [address] [place] [address] Result Comment: Resu lts may be falsely depressed after the administration of Sulfasalazine and/or Sulfapyridine. Performed By: #### 2 4325-3, 30042-6, HCG ####[facility] [facility] LABORATORYCLIA [id number] [place] [address] [place] Bilirubin [Mass/Vol] 0.8 mg/dL Normal 0.2-1.0 [facility] Comment on above: Order Comment: Speci men Type: BLOOD SPECIMENOrdering Facility: [facility] Address: [address] [place] [address] Performed By: #### 2 4325-3, 30410-9, HCG ####[facility] LABORATORYCLIA [id number] [place] [address] [place] Bilirubin.conjugated [Mass/Vol] 0.2 mg/dL Normal 0.0-0.4 [facility] Comment on above: Order Comment: Speci men Type: BLOOD SPECIMENOrdering Facility: [facility] Address: [address] [place] [address] Performed By: #### 2 4325-3, 06790-5, HCG ####[facility] LABORATORYCLIA [id number] [place] [address] [place] Protein [Mass/Vol] 7.3 g/dL Normal 6.0-8.5 [facility] Comment on above: Order Comment: Speci men Type: BLOOD SPECIMENOrdering Facility: [facility] Address: [address] [address] Performed By: #### 2 4325-3, 63509-8, HCG ####[facility] LABORATORYCLIA [id number] [place] 2149208 [place] Lipase SerPl-cCncon 02-01-20 23 Lipase [Catalytic activity/Vol] 21 U/L Normal 12-60 [facility] Comment on above: Order Comment: Speci men Type: BLOOD SPECIMENOrdering Facility: [facility] Address: [address] [facility] [place] [phone] Performed By: #### 3 040-3 ####[facility] LABORATORYCLIA [id number] [place] 2149208 [facility] SEPSIS LACTATEon 01-31-2023 Lactate [Moles/Vol] 3.0 mmol/L High 0.4-2.0 [facility] Comment on above: Order Comment: Speci men Type: BLOOD SPECIMENOrdering Facility: [facility] Address: [place] [address] Performed By: #### S LACT ####[facility] LABORATORYCLIA [id number] [place] 2149208 [facility] XR ACUTE ABD SERIES 2V ABD+C XRon [...] bowel. Consider CT if concern remains high. Fitness Leader: CONCHITA Transcribe Date/Time: Jan 31 2023 7:56P Dictated by : SARAVANAN REESE MD This examination was interpreted and the report reviewed and electronically signed by: SARAVANAN REESE MD on Jan 31 2023 8:00PM EST [id number] Normal [facility] Bacteria Ur Culton 3 Bacteria identified Cx Nom (U) CULTURE, URINE: <10,000 CFU/ml Normal Urogenital Dorothy Normal [facility] Comment on above: Performed By: #### 6 30-4 ####[facility] LABORATORYCLIA [id number] [address] [place] [id number] [place] CNNURSEon 01-25-2023 CNNURSE Nurse Visit (FAMPOR) KATHLEEN VILLA ([id number]) 1995 F CHT Date Time Provider Department [...] Other Visit Diagnosis:Dysuria [R30.0] Order(s):UA DIP B/O [[id number]] Order #: [id number] Prescriptions as of 01/25/2023 - prochlorperazine (COMPAZINE) [...] (BAQSIMI) 3 mg/actuation nasal spray Use 1 [place] in the nose as needed for low [...] 12/08/2022 Encoun (more content not included)... Normal [facility] HEMOGLOBIN A1C (POC)on 01-25 HbA1c [...] Panel Informationon 01-25 Bilirubin, Urine [facility] Color/Appearance Yellow/clear [facility] Hemoglobin/Blood,Ur Negative Neg [facility] Leukocytes Negative Neg [facility] Specific [place], Ur 1.020 1.005 - 1.030 [facility] Urobilinogen, Urine 0.2 EU Normal ( <1.1) EU [facility] CNPNon 01-24-2023 CNPN Telephone (FAMPOR) KATHLEEN VILLA ([id number]) 1995 F T Date Time Provider Department 01/24/23 VIVI SMITH FAMPHANI During your visit today, we recorded the following information about you: Radha Mandel MA 01/24/2023 11:44 AM Signed Yaima from [facility] called and they need an order [...] (BAQSIMI) 3 mg/actuation nasal spray Use 1 [place] in the nose as needed for low [...] VIVI SMITH on (more content not included)... [facility] CNPN Telephone (ALESHIAPOR) KATHLEEN VILLA ([id number]) 1995 F CHT Date Time Provider Department [...] Diagnosis:Left flank pain [R10.9] Order(s):UA DIP B/O [[id number]] Order #: [id number] FUTURE URINE CULTURE [SQURCUL] Order #: [id number] Prescriptions as of 01/25/2023 - prochlorperazine (COMPAZINE) [...] (BAQSIMI) 3 mg/actuation nasal spray Use 1 [place] in the nose as needed for low [...] constipation [K59.04] 10/27 (more content not included)... [facility] FRIEDAN Telephone (HETRME) DAISYKATHLEEN ([id number]) 1995 F CHT Date Time Provider Department [...] (BAQSIMI) 3 mg/actuation nasal spray Use 1 [place] in the nose as needed for low [...] Status:Closed by YAIMA AGUILAR on 01/26/23 Normal [facility] Bacteria Ur Culton 3 Bacteria identified Cx Nom (U) CULTURE, URINE: 10,000-<50,000 CFU/mL Three or more organisms, no one type predominant, suggesting contamination during collection. Recollect if clinically indicated. Abnormal [facility] Comment on above: Performed By: #### 6 30-4 ####[facility] LABORATORYCLIA [id number] [address] [place] CNOVon 01-20-2023 CNOV Office Visit (FAMPOR ) KATHLEEN VILLA ([id number]) 1995 F CHT Date Time Provider Department [...] 200s/. She sees Endo next week. Seeing KEG FILLER and had recent negative pap smear and [...] (BAQSIMI) 3 mg/actuation nasal spray Use 1 [place] in the nose as needed for low [...] Ear: Ty (more content not included)... Normal [facility] C. trachomatis+N. gonorrhoea e DNA DANIEL+probe Ql (Unsp spec)on 01-12-2023 C. trachomatis DNA DANIEL+probe Ql (Unsp spec) Negative Normal Negative for Chlamydia trachomatis by amplificaton [facility] Comment on above: Order Comment: Speci men Type: SWAB Ordering Facility: [facility] Address: [address] [place] [address] Performed By: #### 3 6902-5 #### [facility] CLIA [id number] [address] [place] [address] OF [facility] N. gonorrhoeae DNA DANIEL+probe Ql (Unsp spec) Negative Normal Negative for Neisseria gonorrhoeae by amplification [facility] Comment on above: Order Comment: Speci men Type: SWAB Ordering Facility: [facility] Address: [address] [place] [address] Performed By: #### 3 6902-5 #### [facility] CLIA [id number] [address] [place] [address] [place] CNOVon 01-12-2023 CNOV Office Visit (OBGYMM ) KATHLEEN VILLA ([id number]) 1995 F CHT Date Time Provider Department [...] fevers GI: No nausea, vomiting, or diarrhea 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 Normal [facility] HBV surface Ag Ser Qlon 12-26 HBV surface Ag Ql (S) Non-Reactive Normal Equivo cristina, Nonreactive [facility] Comment on above: Order Comment: Speci men Type: BLOOD SPECIMEN Ordering Facility: [facility] Address: [address] [place] [address] Result Comment: Resu lts were obtained with the [employer] IM IgM assay. Values obtained with different manufactures' assay methods may not be used interchangeably. Performed By: #### 3 1201-7, 5195-3, 42051-6, SYPH #### [facility] CLIA [id number] [address] [place] [address] [place] [facility] HCV Ab Ser Qlon 01-12-2023 HCV Ab Ql (S) Non-Reactive Normal Nonreactive [facility] Comment on above: Order Comment: Speci men Type: BLOOD SPECIMEN Ordering Facility: [facility] Address: [address] [place] [address] Result Comment: Scre ening test negative Nonreactive HCV Antibody Screen is consistent with no HCV infection, unless recent infection is suspected or other evidence exists to indicate HCV infection. Results were obtained with the [employer] IM IgM assay. Values obtained with different manufactures' assay methods may not be used interchangeably. Performed By: #### 3 1201-7, 5195-3, 98402-6, SYPH #### [facility] CLIA [id number] [address] [place] [address] [place] HIV 1+2 Ab IA Qlon HIV 1+2 Ab+HIV1 p24 Ag IA Ql Non-Reactive Normal Nonreactive [facility] Comment on above: Order Comment: Speci men Type: BLOOD SPECIMEN Ordering Facility: [facility] Address: [address] [place] [address] Result Comment: Nonr eactive: Less than 1.0 index value Specimens with an index value <1.0 are considered nonreactive for antibodies to HIV-1, HIV-2, and p24 antigen by the [employer] IM CHIV assay. Performed By: #### 3 1201-7, 5195-3, 87579-1, SYPH #### [facility] CLIA [id number] [address] [place] [address] TREPONEMA PALLIDUM SCREENon 01-12-2023 T. pallidum IgG IF Ql (S) Non-Reactive Normal Nonreactive [facility] Comment on above: Order Comment: Speci men Type: BLOOD SPECIMEN Ordering Facility: [facility] Address: [address] [place] [address] Result Comment: Samp les with an index value of less than 0.90 are considered Nonreactive for Syphilis T. pallidum antibodies. Performed By: #### 3 1201-7, 5195-3, 75242-0, SYPH #### [facility] CLIA [id number] [address] [place] [address] [place] WET PREPon 01-12-2023 WET PREP WET PREP RESULT: No Trichomonads, No yeast observed Moderate Clue cells present Normal [facility] Comment on above: Performed By: #### L FP9651 #### [facility] CLIA [id number] [address] [place] [address] [place] HEMOGLOBIN A1C (POC)on 08-16 HbA1c (Bld) [Mass fraction] 7.0 % Abnormal 4.2 - 5.6 % [facility] BMPon 02-01-2022 Anion gap [Moles/Vol] 7 mmol/L Normal 5-16 [facility] Comment on above: Order Comment: Campu s: M Performed By: #### L 500.82955, L500.99517, L500.72878 ####[facility] VRIYMASTSL4815 [place], [place] [address]Jy# [phone] BUN/CREA TNP Normal 15-24 [facility] Comment on above: Order Comment: Campu s: M Performed By: #### L 500.52161, L500.27842, L500.82212 ####[facility] [id number] [place], [place] [address]Sg# [phone] Calcium [Mass/Vol] 8.4 mg/dL Low 8.5-10.5 [facility] Comment on above: Order Comment: Campu s: M Result Comment: NOTE NEW NORMAL RANGE DUE TO REAGENT CHANGE Performed By: #### L 500.84998, L500.70094, L500.40250 ####[facility] ORLVGFOPDU8392 [place], [place] [address]Gl# [phone] Chloride [Moles/Vol] 112 mmol/L High 98-107 [facility] Comment on above: Order Comment: Campu s: M Performed By: #### L 500.20313, L500.78738, L500.87909 ####[facility] VCOYRIJLCX8735 [place], [place] [address]Md# [phone] CO2 [Moles/Vol] 24.0 mmol/L Normal 21-32 [facility] Comment on above: Order Comment: Campu s: M Performed By: #### L 500.95777, L500.48001, L500.81173 ####[facility] SDRHHOAYMM1421 [place], [place] [address]Ao# [phone] Creatinine [Mass/Vol] 0.64 mg/dL Normal 0.510-0.950 [facility] Comment on above: Order Comment: Campu s: M Result Comment: Cleopatra ents receiving either N-Acetylcysteine (NAC) orMetamizole prior to venipuncture, may have falsely depressedresults. Performed By: #### L 500.00317, L500.30266, L500.24432 ####[facility] PLQNUBUCSV5708 [place], [place] [address]Lr# [phone] Glucose [Mass/Vol] 104 mg/dL High 70-100 [facility] Comment on above: Order Comment: Campu s: M Result Comment: 70-1 00- Normal Fasting; 100-125 Impaired Fasting; greaterthan 126 on more than one result- Diabetes. ADA guidelines.Results may be falsely elevated after the administration ofSulfapyridine.Results may be falsely depressed after the administration ofSulfasalazine. Performed By: #### L 500.18308, L500.79400, L500.74259 ####[facility] YUDSPNEBCY5679 [place], [place] [address]Xw# [phone] Potassium [Moles/Vol] 3.7 mmol/L Normal 3.5-5.1 [facility] Comment on above: Order Comment: Campu s: M Result Comment: Slig ht Hemolysis, Result may be affected. Performed By: #### L 500.49521, L500.12321, L500.87203 ####[facility] SDNMLRTXAM6400 [place], [place] [address]Mm# [phone] Sodium [Moles/Vol] 143 mmol/L Normal 136-145 [facility] Comment on above: Order Comment: Campu s: M Performed By: #### L 500.67532, L500.27202, L500.89346 ####[facility] AQTJSWWRRF1344 [place], [place] [address]Gc# [phone] Urea nitrogen [Mass/Vol] 5 mg/dL Low 7-26 [facility] Comment on above: Order Comment: Campu s: M Performed By: #### L 500.59767, L500.57727, L500.12477 ####[facility] YJHLUYHAKH8290 [place], [place] [address]Zs# [phone] CBC W/DIFFon 02-01-2022 BASO ABS 0.10 K/CU MM Normal 0-0.2 [facility] Comment on above: Order Comment: Campu s: M Performed By: #### L 200.01323 ####[facility] [id number] [place] [address]Xl# [phone] Basophils/100 WBC (Bld) 0.6 % Normal 0-2 [facility] Comment on above: Order Comment: Campu s: M Performed By: #### L 200.38458 ####[address] [address]Ws# [phone] EOS ABS 0.10 K/CU MM Normal 0-0.5 [facility] Comment on above: Order Comment: Campu s: M Performed By: #### L 200.19492 ####[address] [address]Yg# [phone] Eosinophils/100 WBC (Bld) 1.3 % Normal 0-5 [facility] Comment on above: Order Comment: Campu s: M Performed By: #### L 200.36896 ####[address] [address]Wt# [phone] Erythrocyte distribution width (RBC) [Ratio] 13.8 % Normal 11-14.5 [facility] Comment on above: Order Comment: Campu s: M Performed By: #### L 200.93194 ####[address] [address]Ni# [phone] Hematocrit (Bld) [Volume fraction] 36.9 % Normal 35.0-47.0 [facility] Comment on above: Order Comment: Campu s: M Performed By: #### L 200.94269 ####[facility] TWYRHEXIVU[address] [place] [address]Pq# [phone] Hemoglobin (Bld) [Mass/Vol] 12.3 g/dL Normal 11.5-15.5 [facility] Comment on above: Order Comment: Campu s: M Performed By: #### L 200.69466 ####[facility] RYSQDFDLCD2228 [place] [address]Ph# [phone] IMMATR GRAN ABS 0.20 K/CU MM Normal Less than 2 [facility] Comment on above: Order Comment: Campu s: M Performed By: #### L 200.32353 ####[place] [address]Ph# [phone] IMMATURE GRAN % 2.2 % Normal Less than 2 [facility] Comment on above: Order Comment: Campu s: M Performed By: #### L 200.48688 ####[place] [address]01[address]Ph# [phone] LYMPH ABS 3.70 K/CU MM Normal 0.9-4.4 [facility] Comment on above: Order Comment: Campu s: M Performed By: #### L 200.02477 ####[place] [address]Ph# [phone] Lymphocytes/100 WBC (Bld) 33.6 % Normal 20-40 [facility] Comment on above: Order Comment: Campu s: M Performed By: #### L 200.80619 ####[place] [address]Ph# [phone] MCHC (RBC) [Mass/Vol] 33.3 g/dL Normal 32.0-36.0 [facility] Comment on above: Order Comment: Campu s: M Performed By: #### L 200.96347 ####[facility] [address]NSJPSUYX[address] [place], [place] [address]Ph# [phone] MCV (RBC) [Entitic vol] 86.8 fL Normal 80.0-99.0 [facility] Comment on above: Order Comment: Campu s: M Performed By: #### L 200.72404 ####[facility] WERZBJNPKI[address] [place], [place] [address]Ph# [phone] MONO ABS 0.80 K/CU MM Normal 0.1-1.1 [facility] Comment on above: Order Comment: Campu s: M Performed By: #### L 200.26949 ####[facility] CKTACPGFKE4679 [place], [place] [address]Pu# [phone] Monocytes/100 WBC (Bld) 7.3 % Normal 2-10 [facility] Comment on above: Order Comment: Campu s: M Performed By: #### L 200.83525 ####[facility] TVXJPMYGNW[address] [place], [place] [address]Ph# [phone] NEUTROPHIL ABS 6.00 K/CU MM Normal 2.0-8.3 [facility] Comment on above: Order Comment: Campu s: M Performed By: #### L 200.98827 ####[facility] AT[address]UQS[address] [place], [place] [address]Ph# [phone] Neutrophils/100 WBC (Bld) 55.0 % Normal 45-75 [facility] Comment on above: Order Comment: Campu s: M Performed By: #### L 200.21154 ####[facility] EQNBWNPIKG[address] [place], [place] [address]Ph# [phone] Nucleated RBC/100 WBC (Bld) [Ratio] 0.0 % Normal Less than 1 [facility] Comment on above: Order Comment: Campu s: M Performed By: #### L 200.48996 ####[facility] E[address]MBHLWF[address] [place], [place] [address]Ph# [phone] Platelet mean volume (Bld) [Entitic vol] 11.3 fL Normal 9.4-12.4 [facility] Comment on above: Order Comment: Campu s: M Performed By: #### L 200.69419 ####[facility] QIXDRVTBGB1656 [place], [place] [address]Ba# [phone] PLT 173 K/CU MM Normal 150-450 [facility] Comment on above: Order Comment: Campu s: M Performed By: #### L 200.71875 ####[facility] WZLGAZBEGC5524 [place], [place] [address]Lz# [phone] RBC 4.25 M/CU MM Normal 3.90-5.30 [facility] Comment on above: Order Comment: Campu s: M Performed By: #### L 200.41704 ####[facility] HEMGJAPRYX9737 [place], [place] [address]Eh# [phone] WBC 10.9 K/CUMM Normal 4.5-11.0 [facility] Comment on above: Order Comment: Campu s: M Performed By: #### L 200.66694 ####[facility] NHWVUPMEHK8597 [place], [place] [address]Bz# [phone] DISCH.SUMon 02-01-2022 DISCH.SUM Normal [facility] GFR ESTon 02-01-2022 IF AMER Greater than 60 Normal [facility] Comment on above: Order Comment: Campu s: M Performed By: #### L 500.11757, L500.26788, L500.40622 ####[facility] RPSZRPPPVP9640 [place], [place] [address]Pu# [phone] IF non-AFR AMER Greater than 60 Normal [facility] Comment on above: Order Comment: Campu s: M Performed By: #### L 500.07767, L500.62695, L500.39119 ####[facility] IMDCJGOUIF5264 [place], [place] [address]Of# [phone] GLUCOSE METERon 02-01-2022 Glucose [Mass/Vol] 291 mg/dL High 70-115 [facility] Glucose [Mass/Vol] 89 mg/dL Normal 70-115 [facility] MAGNESIUMon 02-01-2022 Magnesium [Mass/Vol] 2.0 mg/dL Normal 1.6-2.6 [facility] Comment on above: Order Comment: Campu s: M Performed By: #### L 500.70639, L500.10701, L500.89721 ####[facility] DNCJGCSGMK1839 [place], [place] [address]Nr# [phone] BMPon 01-31-2022 Anion gap [Moles/Vol] 12 mmol/L Normal 5-16 [facility] Comment on above: Order Comment: Campu s: M Performed By: #### L 500.89113, L500.30961, L500.21331 ####[facility] DUIMBTURXN5016 [place], [place] [address]Ac# [phone] Calcium [Mass/Vol] 9.1 mg/dL Normal 8.5-10.5 [facility] Comment on above: Order Comment: Campu s: M Result Comment: NOTE NEW NORMAL RANGE DUE TO REAGENT CHANGE Performed By: #### L 500.52471, L500.65932, L500.91736 ####[facility] DBBPUQOKLP0575 [place], [place] [address]Se# [phone] Chloride [Moles/Vol] 106 mmol/L Normal 98-107 [facility] Comment on above: Order Comment: Campu s: M Performed By: #### L 500.51067, L500.78578, L500.72710 ####[facility] CR[address]BHTVDEX[address] [place] [address]Vx# [phone] CO2 [Moles/Vol] 24.0 mmol/L Normal 21-32 [facility] Comment on above: Order Comment: Campu s: M Performed By: #### L 500.76203, L500.08716, L500.64025 ####[facility] [id number] [place] [address]Jc# [phone] Creatinine [Mass/Vol] 0.61 mg/dL Normal 0.510-0.950 [facility] Comment on above: Order Comment: Campu s: M Result Comment: Cleopatra ents receiving either N-Acetylcysteine (NAC) orMetamizole prior to venipuncture, may have falsely depressedresults. Performed By: #### L 500.41883, L500.73061, L500.53424 ####[facility] SIMJEBWMQI8054 [place], [place] [address]Gw# [phone] Glucose [Mass/Vol] 167 mg/dL High 70-100 [facility] Comment on above: Order Comment: Campu s: M Result Comment: Delt a check [id number] Normal Fasting; 100-125 Impaired Fasting; greaterthan 126 on more than one result- Diabetes. ADA guidelines.Results may be falsely elevated after the administration ofSulfapyridine.Results may be falsely depressed after the administration ofSulfasalazine. Performed By: #### L 500.85010, L500.28356, L500.65659 ####[facility] MXMHQBVDLM6826 [place], [place] [address]Hf# [phone] Potassium [Moles/Vol] 3.7 mmol/L Normal 3.5-5.1 [facility] Comment on above: Order Comment: Campu s: M Result Comment: Slig ht Hemolysis, Result may be affected. Performed By: #### L 500.70026, L500.25730, L500.06546 ####[facility] UCJEIFXOBD9147 [place], [place] [address]Qf# [phone] Sodium [Moles/Vol] 142 mmol/L Normal 136-145 [facility] Comment on above: Order Comment: Campu s: M Performed By: #### L 500.43691, L500.96863, L500.20860 ####[facility] OOMHERXKRU6915 [place], [place] [address]Jc# [phone] Urea nitrogen [Mass/Vol] 7 mg/dL Normal 7-26 [facility] Comment on above: Order Comment: Campu s: M Performed By: #### L 500.92285, L500.39293, L500.05652 ####[facility] DXVYEOXCFO7986 [place], [place] [address]Uw# [phone] Urea nitrogen/Creatinine [Mass ratio] 11 mg/mg Low 15-24 [facility] Comment on above: Order Comment: Campu s: M Performed By: #### L 500.93457, L500.07393, L500.56814 ####[facility] POJGRICTKJ[address] [place] [address]Yn# [phone] CBC W/DIFFon 01-31-2022 BASO ABS 0.10 K/CU MM Normal 0-0.2 [facility] Comment on above: Order Comment: Campu s: M Performed By: #### L 200.54647 ####[facility] UODXWELHUD[address] [place] [address]Yx# [phone] Basophils/100 WBC (Bld) 0.5 % Normal 0-2 [facility] Comment on above: Order Comment: Campu s: M Performed By: #### L 200.69749 ####[address] [address]Sd# [phone] EOS ABS 0.00 K/CU MM Normal 0-0.5 [facility] Comment on above: Order Comment: Campu s: M Performed By: #### L 200.68812 ####[address] [address]Dq# [phone] Eosinophils/100 WBC (Bld) 0.1 % Normal 0-5 [facility] Comment on above: Order Comment: Campu s: M Performed By: #### L 200.71598 ####[address] [address]Dx# [phone] Erythrocyte distribution width (RBC) [Ratio] 13.9 % Normal 11-14.5 [facility] Comment on above: Order Comment: Campu s: M Performed By: #### L [id number] ####[facility] [id number] [place] [address]Hi# [phone] Hematocrit (Bld) [Volume fraction] 37.5 % Normal 35.0-47.0 [facility] Comment on above: Order Comment: Campu s: M Performed By: #### L [id number] ####[facility] [id number] [place] [address]Et# [phone] Hemoglobin (Bld) [Mass/Vol] 12.3 g/dL Normal 11.5-15.5 [facility] [place] Comment on above: Order Comment: Campu s: M Performed By: #### L 200.70893 ####[facility] COMVGCFOEM4974 [place], [place] [address]Uh# [phone] IMMATR GRAN ABS 0.30 K/CU MM Normal Less than 2 [facility] [place] Comment on above: Order Comment: Campu s: M Performed By: #### L 200.07227 ####[facility] [id number] [place], [place] [address]Ph# [phone] IMMATURE GRAN % 1.9 % Normal Less than 2 [facility] [place] Comment on above: Order Comment: Campu s: M Performed By: #### L 200.05336 ####[place] [address]Ph# [phone] LYMPH ABS 4.00 K/CU MM Normal 0.9-4.4 [facility] [place] Comment on above: Order Comment: Campu s: M Performed By: #### L 200.88887 ####[facility] [id number] [place], [place] [address]Ph# [phone] Lymphocytes/100 WBC (Bld) 24.8 % Normal 20-40 [facility] Comment [facility]: Order Comment: Campu s: M Performed By: #### L 200.29030 ####[facility] WYEVDRVLBT[address] [place], [place] [address]Ph# [phone] MCHC (RBC) [Mass/Vol] 32.8 g/dL Normal 32.0-36.0 [facility] [place] Comment on above: Order Comment: Campu s: M Performed By: #### L 200.99256 ####[facility] [id number] [place] [address]Td# [phone] MCV (RBC) [Entitic vol] 87.6 fL Normal 80.0-99.0 [facility] Comment on above: Order Comment: Campu s: M Performed By: #### L 200.63866 ####[facility] [id number] [place], [place] [address]Mh# [phone] MONO ABS 1.00 K/CU MM Normal 0.1-1.1 [facility] [place] Comment on above: Order Comment: Campu s: M Performed By: #### L 200.72362 ####[facility] EPPYNVKFDL[address] [place] [address]Pc# [phone] Monocytes/100 WBC (Bld) 6.2 % Normal 2-10 [facility] Comment on above: Order Comment: Campu s: M Performed By: #### L 200.69558 ####[place] [address]Ph# [phone] NEUTROPHIL ABS 10.60 K/CU MM High 2.0-8.3 [facility] Comment on above: Order Comment: Campu s: M Performed By: #### L 200.75745 ####[facility] [id number] [place] [address]Ym# [phone] Neutrophils/100 WBC (Bld) 66.5 % Normal 45-75 [facility] Comment on above: Order Comment: Campu s: M Performed By: #### L 200.05683 ####[facility] DCFIJLOFPY[address] [place] [address]Bh# [phone] Nucleated RBC/100 WBC (Bld) [Ratio] 0.0 % Normal Less than 1 [facility] Comment on above: Order Comment: Campu s: M Performed By: #### L 200.82812 ####[facility] GHKXBBHYFC[address] [place] [address]Xu# [phone] Platelet mean volume (Bld) [Entitic vol] 12.0 fL Normal 9.4-12.4 [facility] Comment on above: Order Comment: Campu s: M Performed By: #### L 200.03832 ####[facility] [id number] [place], [place] [address]Ph# [phone] PLT 183 K/CU MM Normal 150-450 [facility] [place] Comment on above: Order Comment: Campu s: M Performed By: #### L 200.43184 ####[facility] DTYYHURRCA4531 [place], [place] [address]If# [phone] RBC 4.28 M/CU MM Normal 3.90-5.30 [facility] Comment on above: Order Comment: Campu s: M Performed By: #### L 200.09825 ####[facility] CYKXFGZSTY[address] [place] [address]Ra# [phone] WBC 16.0 K/CUMM High 4.5-11.0 [facility] Comment on above: Order Comment: Campu s: M Performed By: #### L 200.76021 ####[facility] QNQEQGMWWY[address] [place] [address]Ix# [phone] GFR ESTon 01-31-2022 IF AMER Greater than [address] Comment [facility]: Order Comment: Campu s: M Performed By: #### L 500.82924, L500.70782, L500.14948 ####[facility] VKGDPCHZDY1082 [place], [place] [address]Pq# [phone] IF non-AFR AMER Greater than [address] [facility] Comment on above: Order Comment: Campu s: M Performed By: #### L 500.12895, L500.89448, L500.65970 ####[facility] UXONTQDMKO6747 [place], [place] [address]Zx# [phone] GLUCOSE METERon 01-31-2022 Glucose [Mass/Vol] 233 mg/dL High 70-115 [facility] [place] Glucose [Mass/Vol] 216 mg/dL High 70-115 [facility] [place] Glucose [Mass/Vol] 171 mg/dL High 70-115 [facility] [place] Glucose [Mass/Vol] 230 mg/dL High 70-115 [facility] [place] Glucose [Mass/Vol] 284 mg/dL High 70-115 [facility] MAGNESIUMon 01-31-2022 Magnesium [Mass/Vol] 1.8 mg/dL Normal 1.6-2.6 [facility] Comment on above: Order Comment: Campu s: M Performed By: #### L 500.96693, L500.70111, L500.66946 ####[facility] XCAGPVJACJ9706 [place], [place] [address]Gg# [phone] PROG IMSon 01-31-[address] [facility] Progress Note-Hospitalist Normal [facility] BMPon 01-30-2022 Anion gap [Moles/Vol] 8 mmol/L Normal 5-16 [facility] Comment on above: Order Comment: Campu s: M Performed By: #### L 500.77514, L500.80856 ####[facility] BRWUSYCJRM2813 [place], [place] [address]Mh# [phone] Calcium [Mass/Vol] 8.7 mg/dL Normal 8.5-10.5 [facility] Comment on above: Order Comment: Campu s: M Result Comment: NOTE NEW NORMAL RANGE DUE TO REAGENT CHANGE Performed By: #### L 500.23244, L500.02992 ####[facility] NKNLORFPGG1076 [place], [place] [address]Zu# [phone] Chloride [Moles/Vol] 114 mmol/L High 98-107 [facility] Comment on above: Order Comment: Campu s: M Performed By: #### L 500.75758, L500.14698 ####[facility] KYIJIBDWCD2165 [place], [place] [address]Kt# [phone] CO2 [Moles/Vol] 22.0 mmol/L Normal 21-32 [facility] Comment on above: Order Comment: Campu s: M Performed By: #### L 500.91191, L500.85907 ####[facility] SSDHVMMJAV9363 [place], [place] [address]Cz# [phone] Creatinine [Mass/Vol] 0.68 mg/dL Normal 0.510-0.950 [facility] Comment on above: Order Comment: Campu s: M Result Comment: Cleopatra ents receiving either N-Acetylcysteine (NAC) orMetamizole prior to venipuncture, may have falsely depressedresults. Performed By: #### L 500.94792, L500.52541 ####[facility] HCUZVDZKGH9054 [place], [place] [address]Kl# [phone] Glucose [Mass/Vol] 87 mg/dL Normal 70-100 [facility] Comment on above: Order Comment: Campu s: M Result Comment: 70-1 00- Normal Fasting; 100-125 Impaired Fasting; greaterthan 126 on more than one result- Diabetes. ADA guidelines.Results may be falsely elevated after the administration ofSulfapyridine.Results may be falsely depressed after the administration ofSulfasalazine. Performed By: #### L 500.34026, L500.91199 ####[facility] BKSRUOVVGM7138 [place], [place] [address]Ix# [phone] Potassium [Moles/Vol] 3.2 mmol/L Low 3.5-5.1 [facility] Comment on above: Order Comment: Campu s: M Result Comment: Slig ht Hemolysis, Result may be affected. Performed By: #### L 500.35653, L500.79212 ####[facility] KKTEEAEZBX3600 [place], [place] [address]Zj# [phone] Sodium [Moles/Vol] 144 mmol/L Normal 136-145 [facility] Comment on above: Order Comment: Campu s: M Performed By: #### L 500.59138, L500.99384 ####[facility] PRSNTLXDVN2994 [place], [place] [address]Ti# [phone] Urea nitrogen [Mass/Vol] 14 mg/dL Normal 7-26 [facility] Comment on above: Order Comment: Campu s: M Performed By: #### L 500.02543, L500.62434 ####[facility] YMFNPZGUKB3458 [place], [place] [address]Fg# [phone] Urea nitrogen/Creatinine [Mass ratio] 20 mg/mg Normal 15-24 [facility] Comment on above: Order Comment: Campu s: M Performed By: #### L 500.04512, L500.09345 ####[facility] GYVWFXYTCU0297 [place], [place] [address]Zx# [phone] Anion gap [Moles/Vol] 5 mmol/L Normal 5-16 [facility] [place] Comment on above: Order Comment: Campu s: M Performed By: #### L 500.71457, L500.93124 ####[facility] KVOQAYOUVI7841 [place], [place] [address]Pj# [phone] Calcium [Mass/Vol] 9.0 mg/dL Normal 8.5-10.5 [facility] Comment on above: Order Comment: Campu s: M Result Comment: NOTE NEW NORMAL RANGE DUE TO REAGENT CHANGE Performed By: #### L 500.49150, L500.50859 ####[facility] EBVZYZOAXV8708 [place], [place] [address]Sn# [phone] Chloride [Moles/Vol] 114 mmol/L High 98-107 [facility] Comment on above: Order Comment: Campu s: M Result Comment: Delt a check reviewed Performed By: #### L 500.32040, L500.74365 ####[facility] RZEIHEWXLM9169 [place], [place] [address]Ys# [phone] CO2 [Moles/Vol] 22.0 mmol/L Normal 21-32 [facility] Comment on above: Order Comment: Campu s: M Result Comment: Delt a check reviewed Performed By: #### L 500.36449, L500.96925 ####[facility] WYJZKYAODM4559 [place], [place] [address]Aa# [phone] Creatinine [Mass/Vol] 0.74 mg/dL Normal 0.510-0.950 [facility] Comment on above: Order Comment: Campu s: M Result Comment: [place] ents receiving either N-Acetylcysteine (NAC) orMetamizole prior to venipuncture, may have falsely depressedresults. Performed By: #### L 500.98664, L500.32100 ####[facility] JPJFXXLZVK6490 [place], [place] [address]Oh# [phone] Glucose [Mass/Vol] 95 mg/dL Normal 70-100 [facility] [place] Comment on above: Order Comment: Campu s: M Result Comment: 70-1 00- Normal Fasting; 100-125 Impaired Fasting; greaterthan 126 on more than one result- Diabetes. ADA guidelines.Results may be falsely elevated after the administration ofSulfapyridine.Results may be falsely depressed after the administration ofSulfasalazine. Performed By: #### L 500.67827, L500.10529 ####[address] [address]Ey# [phone] Potassium [Moles/Vol] 3.6 mmol/L Normal 3.5-5.1 [facility] [place] Comment on above: Order Comment: Campu s: M Performed By: #### L 500.39969, L500.06652 ####[facility] TKLCYEJSGI[address] [place] [address]Wb# [phone] Sodium [Moles/Vol] 141 mmol/L Normal 136-145 [facility] Comment on above: Order Comment: Campu s: M Performed By: #### L 500.81354, L500.49227 ####[facility] [address]ZIFRIDI[address] [place] [address] 15[address]Ly# [phone] Urea nitrogen [Mass/Vol] 18 mg/dL Normal 7-26 [facility] Comment on above: Order Comment: Campu s: M Performed By: #### L 500.53564, L500.18955 ####[facility] CXVYTXDSIR3[address] [place] [address]Ft# [phone] Urea nitrogen/Creatinine [Mass ratio] 24 mg/mg Normal 15-24 [facility] Comment on above: Order Comment: Campu s: M Performed By: #### L 500.00327, L500.90401 ####[facility] TUQVNBASFZ1579 [place] [address]Ph# [phone] CBC W/DIFFon 01-30-2022 BASO ABS 0.00 K/CU MM Normal 0-0.2 [facility] [place] Comment on above: Order Comment: Camp[place]: MRN/MD Draw Performed By: #### L 200.75101 ####[facility] PZGCJKZOIV[address] [place], [place] [address]Ph# [phone] Basophils/100 WBC (Bld) 0.2 % Normal 0-2 [facility] [place] Comment on above: Order Comment: Camp[place]: MRN/MD Draw Performed By: #### L 200.87788 ####[facility] ALOCYUQPDJ080[address] [place], [place] [address]Ph# [phone] EOS ABS 0.00 K/CU MM Normal 0-0.5 [facility] [place] Comment on above: Order Comment: Campu [place]: MRN/MD Draw Performed By: #### L 200.91860 ####[facility] DTLXBZLDPE99[address] [place], [place] [address]Ph# [phone] Eosinophils/100 WBC (Bld) 0.0 % Normal 0-5 [facility] [place] Comment on above: Order Comment: Campu s: MRN/MD Draw Performed By: #### L 200.23555 ####[facility] PDXYAXRPKC39[address] [place] [address]Ap# [phone] Erythrocyte distribution width (RBC) [Ratio] 14.3 % Normal 11-14.5 [facility] [place] Comment on above: Order Comment: Campu s: MRN/MD Draw Performed By: #### L 200.71934 ####[facility] QEGKUYXYAP19[address] [place] [address]Ej# [phone] Hematocrit (Bld) [Volume fraction] 34.4 % Low 35.0-47.0 [facility] [place] Comment on above: Order Comment: Campu s: MRN/MD Draw Performed By: #### L 200.83982 ####[facility] JPQMGITOWQ0847[address] [place], [place] [address]Ph# [phone] Hemoglobin (Bld) [Mass/Vol] 11.3 g/dL Low 11.5-15.5 [facility] [place] Comment on above: Order Comment: Benjiu s: MRN/MD Draw Performed By: #### L 200.50829 ####[facility] OCHFWQZHBX9196 [place] [address]Ph# [phone] IMMATR GRAN ABS 0.20 K/CU MM Normal Less than 2 [facility] [place] Comment on above: Order Comment: Benjiu s: MRN/MD Draw Performed By: #### L 200.30870 ####[facility] SKDEGKBYLE[address] [place], [place] [address]Ph# [phone] IMMATURE GRAN % 0.8 % Normal Less than 2 [facility] [place] Comment on above: Order Comment: Benjiu s: MRN/MD Draw Performed By: #### L 200.56234 ####[facility] RRUKQOFJKC[address] [place], [place] [address]Ph# [phone] LYMPH ABS 2.20 K/CU MM Normal 0.9-4.4 [facility] [place] Comment on above: Order Comment: Benjiu s: MRN/MD Draw Performed By: #### L 200.55610 ####[facility] TPKGSGIGVL12[address] [place], [place] [address]Ph# [phone] Lymphocytes/100 WBC (Bld) 9.0 % Low 20-40 [facility] [place] Comment on above: Order Comment: Benjiu s: MRN/MD Draw Performed By: #### L 200.58892 ####[facility] YAWVCENPIP97[address] [place], [place] [address]Ph# [phone] MCHC (RBC) [Mass/Vol] 32.8 g/dL Normal 32.0-36.0 [facility] [place] Comment on above: Order Comment: Benjiu s: MRN/MD Draw Performed By: #### L 200.58000 ####[facility] VIUXRIKQPT1965[address] [place], [place] [address]Ph# [phone] MCV (RBC) [Entitic vol] 88.0 fL Normal 80.0-99.0 [facility] [place] Comment on above: Order Comment: Camp[place] s: MRN/MD Draw Performed By: #### L 200.94611 ####[facility] KGCVPCMOAY7798 [place], [place] [address]Tk# [phone] MONO ABS 1.60 K/CU MM High 0.1-1.1 [facility] [place] Comment on above: Order Comment: Campu s: MRN/MD Draw Performed By: #### L 200.92006 ####[facility] XUOBTQGLKY4072 [place], [place] [address]Gy# [phone] Monocytes/100 WBC (Bld) 6.5 % Normal 2-10 [facility] Comment [facility] above: Order Comment: Camp[place] s: MRN/MD Draw Performed By: #### L 200.26018 ####[facility] SXIGXQIWNX16[address] [place], [place] [address]Ph# [phone] NEUTROPHIL ABS 20.60 K/CU MM High 2.0-8.3 [facility] [place] Comment on above: Order Comment: Campu s: MRN/MD Draw Performed By: #### L 200.95206 ####[facility] ZKBNONRAYH4105 [place], [place] [address]Bm# [phone] Neutrophils/100 WBC (Bld) 83.5 % High 45-75 [facility] Comment on above: Order Comment: Camp[place] s: MRN/MD Draw Performed By: #### L 200.76762 ####[facility] IRXQSXCSFH2[address] [place] [address]Hw# [phone] Nucleated RBC/100 WBC (Bld) [Ratio] 0.0 % Normal Less than 1 [facility] [place] Comment on above: Order Comment: Camp[place] s: MRN/MD Draw Performed By: #### L 200.76210 ####[facility] KAOFMSMYNN8940 [place], [place] [address]Cz# [phone] Platelet mean volume (Bld) [Entitic vol] 12.0 fL Normal 9.4-12.4 [facility] [place] Comment on above: Order Comment: Campu s: MRN/MD Draw Performed By: #### L 200.52081 ####[facility] UICNWFHLVC3599 [place], [place] [address]Ez# [phone] PLT 198 K/CU MM Normal 150-450 [facility] [place] Comment on above: Order Comment: Campu s: MRN/MD Draw Performed By: #### L 200.43704 ####[facility] MQJNVYOOBQ5110 [place], [place] [address]Oh# [phone] RBC 3.91 M/CU MM Normal 3.90-5.30 [facility] [place] Comment on above: Order Comment: Campu s: MRN/MD Draw Performed By: #### L 200.12596 ####[facility] KAABSEHJVF0593 [place], [place] [address]Se# [phone] WBC 24.7 K/CUMM High 4.5-11.0 [facility] Comment on above: Order Comment: Campu s: MRN/MD Draw Performed By: #### L 200.54815 ####[facility] EWCFZYDGWO[address] [place] [address] 207[address]Ob# [phone] GFR ESTon 01-30-2022 IF AMER Greater than 60 Normal [facility] [place] Comment on above: Order Comment: Campu s: M Performed By: #### L 500.44024, L500.64869 ####[facility] CVYKQKJKTM6817 [place], [place] [address]Tj# [phone] IF non-AFR AMER Greater than 60 Normal [facility] [place] Comment on above: Order Comment: Campu s: M Performed By: #### L 500.30534, L500.73756 ####[facility] ELPOITXMBD9671 [place], [place] [address]Iw# [phone] IF AMER Greater than 60 Normal [facility] [place] Comment on above: Order Comment: Campu s: M Performed By: #### L 500.03559, L500.33385 ####[facility] AKTCSAVWRN4975 [place], [place] [address]Ni# [phone] IF non-AFR AMER Greater than 60 Normal [facility] [place] Comment on above: Order Comment: Zach richter: M Performed By: #### L 500.34830, L500.45694 ####[facility] XIAIMAJRGT6602 [place], [place] [address]Xn# [phone] GLUCOSE METERon 01-30-2022 Glucose [Mass/Vol] 214 mg/dL High 70-115 [facility] [place] Glucose [Mass/Vol] 219 mg/dL High 70-115 [facility] [place] Glucose [Mass/Vol] 114 mg/dL Normal 70-115 [facility] [place] Glucose [Mass/Vol] 125 mg/dL High 70-115 [facility] [place] Glucose [Mass/Vol] 120 mg/dL High 70-115 [facility] [place] Glucose [Mass/Vol] 86 mg/dL Normal 70-115 [facility] [place] Glucose [Mass/Vol] 134 mg/dL High 70-115 [facility] [place] Glucose [Mass/Vol] 105 mg/dL Normal 70-115 [facility] [place] Glucose [Mass/Vol] 94 mg/dL Normal 70-115 [facility] [place] Glucose [Mass/Vol] 189 mg/dL High 70-115 [facility] [place] Glucose [Mass/Vol] 122 mg/dL High 70-115 [facility] [place] Glucose [Mass/Vol] 188 mg/dL High 70-115 [facility] [place] Glucose [Mass/Vol] 206 mg/dL High 70-115 [facility] [place] MAGNESIUMon 01-30-2022 Magnesium [Mass/Vol] 1.9 mg/dL Normal 1.6-2.6 [facility] [place] Comment on above: Order Comment: Zach richter: RUBÉN/ Draw Performed By: #### L 500.39373, L500.45122 ####[facility] QIHNDZPJSR8181 [place], [place] [address]Ge# [phone] PHOSon 01-30-2022 Phosphate [Mass/Vol] 2.20 mg/dL Low 2.5-4.9 [facility] Comment on above: Order Comment: Zach s: RUBÉN/ Draw Result Comment: Elev ated m-protein (paraprotein) levels in the serum may beexhibited in patients with monoclonal gammopathies, causingfalsely elevated inorganic phosphorus results. Performed By: #### L 500.79974, L500.80692 ####[facility] RBZMKENVZN2689 [place], [place] [address]Yq# [phone] PROG IMSon 01-30-[address] [facility] Progress Note-Hospitalist Normal [facility] PROG.INTENon 01-30-[address] [facility] Progress Note-Nuclear Radiation Engineer Normal [facility] BETA-HYDRO BUTon 01-29-2022 BETA-HYDRO BUT 3.92 MMOL/L High 0.02-0.27 [facility] Comment on above: Order Comment: Zach s: M Result Comment: Bloo d ketone levels will vary depending on several factors(for example, food intake, alcohol intake and conditionssuch as ketoacidosis). Patients should be fasting 12 hoursprior to collection.PATIENT SAMPLES WITH HIGH LEVELS OF M-PROTEIN (I.E.GAMMOPATHY) MAY AFFECT THE ACCURACY OF THIS ASSAY. Performed By: #### L 500.75362 ####[facility] RMFUXOMDWN4875 [place], [place] [address]Gc# [phone] BMPon 01-29-2022 Anion gap [Moles/Vol] 18 mmol/L High 5-16 [facility] Comment on above: Order Comment: Zach s: M Performed By: #### L 500.90196, L500.63052, L500.47459, L500.01865, L500.86784 ####[facility] OLSZEIPVLG3999 [place], [place] [address]Mf# [phone] Calcium [Mass/Vol] 9.9 mg/dL Normal 8.5-10.5 [facility] Comment on above: Order Comment: Benjiu s: M Result Comment: NOTE NEW NORMAL RANGE DUE TO REAGENT CHANGE Performed By: #### L 500.76660, L500.65172, L500.07621, L500.20770, L500.70565 ####[facility] JYFMZGROUK3849 [place], [place] [address]Lm# [phone] Chloride [Moles/Vol] 103 mmol/L Normal 98-107 [facility] Comment on above: Order Comment: Zach s: M Performed By: #### L 500.04822, L500.34688, L500.67749, L500.82316, L500.76986 ####[facility] UCJFHWAQCX2848 [place], [place] [address]Ya# [phone] CO2 [Moles/Vol] 15.0 mmol/L Low 21-32 [facility] Comment on above: Order Comment: Zach s: M Performed By: #### L 500.50328, L500.89701, L500.60648, L500.65132, L500.11934 ####[facility] VNTUTGYQQR0965 [place], [place] [address]Ir# [phone] Creatinine [Mass/Vol] 0.71 mg/dL Normal 0.510-0.950 [facility] Comment on above: Order Comment: Zach s: M Result Comment: Cleopatra ents receiving either N-Acetylcysteine (NAC) orMetamizole prior to venipuncture, may have falsely depressedresults. Performed By: #### L 500.77137, L500.42176, L500.13590, L500.41310, L500.60525 ####[facility] VUJAOIPFCZ3852 [place], [place] [address]Af# [phone] Glucose [Mass/Vol] 412 mg/dL High 70-100 [facility] Comment on above: Order Comment: Zach s: M Result Comment: 70-1 00- Normal Fasting; 100-125 Impaired Fasting; greaterthan 126 on more than one result- Diabetes. ADA guidelines.Results may be falsely elevated after the administration ofSulfapyridine.Results may be falsely depressed after the administration ofSulfasalazine. Performed By: #### L 500.28702, L500.28152, L500.20483, L500.88469, L500.26032 ####[facility] ISGSMSDOKP4695 [place], [place] [address]Fj# [phone] Potassium [Moles/Vol] 4.2 mmol/L Normal 3.5-5.1 [facility] Comment on above: Order Comment: Campu s: M Performed By: #### L 500.01134, L500.85896, L500.37228, L500.53490, L500.81710 ####[facility] [id number] [place], [place] [address]Jd# [phone] Sodium [Moles/Vol] 136 mmol/L Normal 136-145 [facility] Comment [facility] above: Order Comment: Campu s: M Performed By: #### L 500.41015, L500.63426, L500.19368, L500.22453, L500.58148 ####[facility] [id number] [place], [place] [address]Ni# [phone] Urea nitrogen [Mass/Vol] 23 mg/dL Normal 7-26 [facility] Comment on above: Order Comment: Campu s: M Performed By: #### L 500.26053, L500.72998, L500.27940, L500.47354, L500.26362 ####[facility] [id number] [place], [place] [address]Zh# [phone] Urea nitrogen/Creatinine [Mass ratio] 32 mg/mg High 15-24 [facility] Comment on above: Order Comment: Campu s: M Performed By: #### L 500.97445, L500.80996, L500.65551, L500.20742, L500.40818 ####[facility] [id number] [place], [place] [address]Zd# [phone] CBC W/DIFFon 01-29-2022 BASO ABS 0.00 K/CU MM Normal 0-0.2 [facility] Comment on above: Order Comment: Campu s: M Performed By: #### L 200.46902 ####[facility] [id number] [place], [place] [address]Ov# [phone] Basophils/100 WBC (Bld) 0.1 % Normal 0-2 [facility] Comment on above: Order Comment: Campu s: M Performed By: #### L 200.62495 ####[facility] [id number] [place] [address]Qi# [phone] EOS ABS 0.00 K/CU MM Normal 0-0.5 [facility] Comment on above: Order Comment: Campu s: M Performed By: #### L 200.01985 ####[place] [address]Ph# [phone] Eosinophils/100 WBC (Bld) 0.1 % Normal 0-5 [facility] [place] Comment on above: Order Comment: Campu s: M Performed By: #### L 200.12889 ####[facility] T[address] [place], [place] [address]Ph# [phone] Erythrocyte distribution width (RBC) [Ratio] 13.6 % Normal 11-14.5 [facility] [place] Comment on above: Order Comment: Campu s: M Performed By: #### L 200.01346 ####[address] [address]Pt# [phone] Hematocrit (Bld) [Volume fraction] 38.7 % Normal 35.0-47.0 [facility] Comment on [facility]: Order Comment: Campu s: M Performed By: #### L 200.79235 ####[facility] EA[address]QZ[address] [place] [address]Gw# [phone] Hemoglobin (Bld) [Mass/Vol] 12.6 g/dL Normal 11.5-15.5 [facility] [place] Comment on above: Order Comment: Campu s: M Performed By: #### L 200.31837 ####[facility] PNIIGCCTUJ[address] [place], [place] [address]Ph# [phone] IMMATR GRAN ABS 0.10 K/CU MM Normal Less than 2 [facility] [place] Comment on above: Order Comment: Benjiu s: M Performed By: #### L 200.43340 ####[facility] IVXQXRXTJW5281 [place] [address]Ph# [phone] IMMATURE GRAN % 0.8 % Normal Less than 2 [facility] [place] Comment on above: Order Comment: Campu s: M Performed By: #### L 200.94658 ####[place] [address]Ph# [phone] LYMPH ABS 0.80 K/CU MM Low 0.9-4.4 [facility] [place] Comment on above: Order Comment: Benjiu s: M Performed By: #### L 200.02965 ####[place] [address]Ph# [phone] Lymphocytes/100 WBC (Bld) 4.4 % Low 20-40 [facility] [place] Comment on above: Order Comment: Campu s: M Performed By: #### L 200.20015 ####[facility] OCTFBHDLVC[address] [place], [place] [address]Ph# [phone] MCHC (RBC) [Mass/Vol] 32.6 g/dL Normal 32.0-36.0 [facility] [place] Comment on above: Order Comment: Campu s: M Performed By: #### L 200.62969 ####[facility] BVRBILAOZR[address] [place], [place] [address]Ph# [phone] MCV (RBC) [Entitic vol] 86.4 fL Normal 80.0-99.0 [facility] Comment on above: Order Comment: Campu s: M Performed By: #### L 200.30405 ####[facility] YUJFWQSHUS[address] [place], [place] [address]Ph# [phone] MONO ABS 0.30 K/CU MM Normal 0.1-1.1 [facility] Comment on above: Order Comment: Campu s: M Performed By: #### L 200.81236 ####[facility] GUWOYTPIIS1751 [place], [place] [address]Wn# [phone] Monocytes/100 WBC (Bld) 1.7 % Low 2-10 [facility] Comment on above: Order Comment: Campu s: M Performed By: #### L 200.94359 ####[facility] UOCSSSJOPH4515 [place] [address]Ph# [phone] NC/NC NORMOCYTIC Normal [facility] Comment on above: Order Comment: Campu s: M Performed By: #### L 200.24084 ####[facility] POHPEVSWRS[address] [place], [place] [address]Ph# [phone] NEUTROPHIL ABS 17.00 K/CU MM High 2.0-8.3 [facility] Comment on above: Order Comment: Campu s: M Performed By: #### L 200.16162 ####[facility] JJDRJKJOAO[address] [place], [place] [address]Ph# [phone] Neutrophils/100 WBC (Bld) 92.9 % High 45-75 [facility] Comment on above: Order Comment: Campu s: M Performed By: #### L 200.40060 ####[facility] [id number] [place] [address]Sw# [phone] Nucleated RBC/100 WBC (Bld) [Ratio] 0.0 % Normal Less than 1 [facility] Comment on above: Order Comment: Campu s: M Performed By: #### L 200.08145 ####[facility] YOVAGBQMOS[address] [place], [place] [address]Ph# [phone] Platelet mean volume (Bld) [Entitic vol] 13.5 fL High 9.4-12.4 [facility] Comment on above: Order Comment: Campu s: M Performed By: #### L 200.35489 ####[facility] MRWUJCNACI[address] [place], [place] [address]Ph# [phone] PLT 174 K/CU MM Normal 150-450 [facility] Comment on above: Order Comment: Campu s: M Performed By: #### L 200.27871 ####[facility] HAFCTZFJEE1179 [place], [place] [address]Uw# [phone] PLT EST ADEQUATE [facility] Comment on above: Order Comment: Campu s: M Performed By: #### L 200.12070 ####[facility] DZKBPRJNCA5752 [place], [place] [address]Nq# [phone] RBC 4.48 M/CU MM Normal 3.90-5.30 [facility] Comment on above: Order Comment: Campu s: M Performed By: #### L 200.40265 ####[facility] WXLIPPESIL1823 [place], [place] [address]Ke# [phone] WBC 18.3 K/CUMM High 4.5-11.0 [facility] Comment on above: Order Comment: Campu s: M Performed By: #### L 200.14461 ####[facility] ETUMAGPKVD[address] [place] [address]Vo# [phone] CONS.INTENon 01-29-2022 CONS.INTEN [facility] Consultation-Intensivi st [facility] Stacie 01-29-2022 EMERGENCY PHYSICIAN REPORT This is a preliminary report only, as the practitioner review and authentication has not occurred. [facility] ER [facility] GFR ESTon 01-29-2022 IF AMER Greater than 60 [facility] Comment on above: Order Comment: Campu s: M Performed By: #### L 500.07280, L500.29223, L500.84593, L500.81248, L500.90116 ####[facility] MYRDWOBLDG4871 [place], [place] [address]Gg# [phone] IF non-AFR AMER Greater than 60 [facility] Comment on above: Order Comment: Campu s: M Performed By: #### L 500.95260, L500.14489, L500.71213, L500.36762, L500.67586 ####[facility] LSFFTMUVAG1031 [place], [place] [address]Ja# [phone] GLUCOSE METERon 01-29-2022 Glucose [Mass/Vol] 135 mg/dL High 70-115 [facility] Glucose [Mass/Vol] 146 mg/dL High 70-115 [facility] Glucose [Mass/Vol] 141 mg/dL High 70-115 [facility] Glucose [Mass/Vol] 117 mg/dL High 70-115 [facility] Glucose [Mass/Vol] 151 mg/dL High 70-115 [facility] Glucose [Mass/Vol] 221 mg/dL High 70-115 [facility] Glucose [Mass/Vol] 286 mg/dL High 70-115 [facility] Glucose [Mass/Vol] 382 mg/dL High 70-115 [facility] Glucose [Mass/Vol] 402 mg/dL High 70-115 [facility] HCGon 01-29-2022 HCG SER RESULT Negative Normal NEGATIVE [facility] Comment on above: Order Comment: Campu s: M Performed By: #### L 500.50055, L500.45155, L500.57049, L500.55128, L500.79676 ####[facility] FENEWDHONX9340 [place], [place] [address]Ta# [phone] HP.IMS.ADMon 01-29-2022 Admission-H&P Normal [facility] HP.IMS.ADM Normal [facility] LIPASEon 01-29-2022 Lipase [Catalytic activity/Vol] 22 U/L Normal 12-60 [facility] Comment on above: Order Comment: Campu s: M Result Comment: NOTE NEW NORMAL RANGE DUE TO REAGENT CHANGE Performed By: #### L 500.31429, L500.38085, L500.74701, L500.52783, L500.46311 ####[facility] POBDRDTWWS8867 [place], [place] [address]Ot# [phone] LIVERon 01-29-2022 Albumin [Mass/Vol] 4.5 g/dL Normal 3.2-5.0 [facility] Comment on above: Order Comment: Campu s: M Performed By: #### L 500.89680, L500.19327, L500.54821, L500.84582, L500.26556 ####[facility] DUDZTKKFFN1100 [place], [place] [address]Cp# [phone] Albumin/Globulin [Mass ratio] 1.7 {ratio} Normal 0.8-2.0 [facility] Comment on above: Order Comment: Campu s: M Performed By: #### L 500.36334, L500.08873, L500.49686, L500.25114, L500.02277 ####[facility] QBFSFJSQNL6577 [place], [place] [address]Dn# [phone] ALK PHOS 104 U/L Normal 45-117 [facility] Comment on above: Order Comment: Campu s: M Performed By: #### L 500.97182, L500.62054, L500.59544, L500.68292, L500.82142 ####[facility] KVJUGANYWP8122 [place], [place] [address]Bw# [phone] ALT [Catalytic activity/Vol] 28 U/L Normal 13-61 [facility] Comment on above: Order Comment: Campu s: M Result Comment: RESU LTS MAY BE FALSELY DEPRESSED AFTER THE ADMINISTRATION OFSULFASALAZINE AND/OR SULFAPYRIDINE. Performed By: #### L 500.64554, L500.62026, L500.53246, L500.61030, L500.31976 ####[facility] KNZAAUXYJS0510 [place], [place] [address]Dt# [phone] AST [Catalytic activity/Vol] 24 U/L Normal 8-34 [facility] Comment on above: Order Comment: Campu s: M Result Comment: RESU LTS MAY BE FALSELY DEPRESSED AFTER THE ADMINISTRATION OFSULFASALAZINE AND/OR SULFAPYRIDINE. Performed By: #### L 500.56435, L500.90193, L500.14120, L500.16329, L500.20805 ####[facility] VTCKQMFEWV0438 [place], [place] [address]Sp# [phone] BILI DIRECT 0.3 MG/DL Normal 0.00-0.36 [facility] Comment [facility] above: Order Comment: Campu s: M Result Comment: NOTE NEW NORMAL RANGE DUE TO REAGENT CHANGE Performed By: #### L 500.10366, L500.92883, L500.45358, L500.17912, L500.56528 ####[facility] PEPRGKXANC2070 [place], [place] [address]Ek# [phone] BILI TOTAL 0.90 MG/DL Normal 0.2-1.0 [facility] Comment on above: Order Comment: Campu s: M Performed By: #### L 500.20698, L500.30062, L500.19152, L500.13450, L500.26462 ####[facility] JCWPZMLSGI3227 [place], [place] [address]Vt# [phone] Globulin (S) [Mass/Vol] 2.7 g/dL Normal 2.2-4.2 [facility] Comment on above: Order Comment: Campu s: M Performed By: #### L 500.02526, L500.26102, L500.69803, L500.83736, L500.00922 ####[facility] NJQXJDQFLV4036 [place], [place] [address]Jc# [phone] Protein [Mass/Vol] 7.2 g/dL Normal 6.0-8.5 [facility] Comment on above: Order Comment: Campu s: M Performed By: #### L 500.51593, L500.28539, L500.09234, L500.54761, L500.54833 ####[facility] XBNYLXAQUP1346 [place], [place] [address]Hi# [phone] MRSA PCRon 01-29-2022 MRSA PCR Negative Normal NEGATIVE [facility] Comment on above: Order Comment: Campu s: M Result Comment: PLEA SE NOTE: TESTING DONE BY PCR TECHNOLOGY.The SA Nasal complete MRSA assay on the Xoft GeneXperthas not been validated for use on patients under 21 years ofage. All patients under 21 years of age, run on theGeneXpert will be confirmed by a Blood Mcdaniel plate, followedby an SHINE, to confirm MRSA. Performed By: #### L 770.03420 ####[facility] GEBVZDNABR9887 [place], [place] [address]Mk# [phone] SA PCR Positive High NEGATIVE [facility] Comment on above: Order Comment: Campu s: M Result Comment: PLEA SE NOTE: TESTING DONE BY PCR TECHNOLOGY. Performed By: #### L 770.19465 ####[address] [address]Wk# [phone] PORTABLE CHESTon 01-29-[address] [facility] [id number] 01-29-2022 SARS-CoV-2 (COVID-19) RNA DANIEL+probe Ql (Unsp spec) Negative Invalid Interpretation Code Negative [facility] Comment [...] performed by PCR. Performed By: #### L 770.60261 ####[facility] ZCNLJMDIJH7176 [place], [place] [address]Ib# [phone] UA COMPLETEon 01-29-2022 Color (U) Straw Normal [facility] Comment on above: Order Comment: Benjiu s: M Performed By: #### L 600.72302 ####[facility] UHZOSNPLJV2639 [place], [place] [address]La# [phone] Glucose (U) [Mass/Vol] 500 mg/dL [facility]: Order Comment: Campu s: M Performed By: #### L 600.97940 ####[facility] MRIHWZKMXR2587 [place], [place] [address]Uh# [phone] UA APPEARANCE Clear Normal CLEAR [facility] Comment on above: Order Comment: Campu s: M Performed By: #### L 600.40771 ####[facility] DVBZPXHAQB[address] [place] [address]Ai# [phone] UA BILIRUBIN Negative Normal NEGATIVE [facility] Comment on above: Order Comment: Campu s: M Performed By: #### L 600.41280 ####[facility] OEHCKTYXXS[address] [place] [address]Hi# [phone] UA BLOOD Negative Normal NEGATIVE [facility] Comment on above: Order Comment: Campu s: M Performed By: #### L 600.55245 ####[address] [address]Lj# [phone] UA KETONE [address] [facility] Comment on above: Order Comment: Campu s: M Performed By: #### L 600.01232 ####[facility] [address]QKYWAC[address] [place] [address]Pi# [phone] UA LK ESTERASE Negative Normal NEGATIVE [facility] Comment on above: Order Comment: Campu s: M Performed By: #### L 600.19440 ####[facility] TUGNWBHRPG[address] [place] [address]Od# [phone] UA NITRITE Negative Normal NEGATIVE [facility] Comment on above: Order Comment: Campu s: M Performed By: #### L 600.89779 ####[facility] GHLUBEPJAY[address] [place] [address]Fj# [phone] UA PH 6.0 Normal 5-6 [facility] Comment on above: Order Comment: Campu s: M Performed By: #### L 600.15221 ####[facility] DFTCFVIFVX63[address] [place] [address]Vp# [phone] UA PROTEIN Negative Normal NEGATIVE [facility] Comment on above: Order Comment: Campu s: M Performed By: #### L 600.73170 ####[facility] GQZUUHADLY7733 [place], [place] [address]Hb# [phone] UA SPEC GRAV 1.028 Normal 1.005-1.030 [facility] Comment on above: Order Comment: Campu s: M Performed By: #### L 600.83919 ####[facility] FOGXUBUHIM7[address] [place] [address]Kn# [phone] UA UROBILINOGEN Negative Normal NORMAL [facility] Comment on above: Order Comment: Campu s: M Performed By: #### L 600.22653 ####[facility] JIMIIPAGAM1810 [place], [place] [address]Aw# [phone] VBG PHon 01-29-2022 VBG PH 7.36 MMHG Normal 7.31-7.41 [facility] Comment on above: Order Comment: Campu s: M Performed By: #### L 100.18709 ####[facility] YBOBUUBYWJ4[address] [place] [address]Sh# [phone] BMPon 12-30-2021 Anion gap [Moles/Vol] 4 mmol/L Low 5-16 [facility] Comment on above: Order Comment: Campu s: M Performed By: #### L 500.95243, L500.31208 ####[facility] QANOUFCCRU5301 [place], [place] [address]Pd# [phone] Calcium [Mass/Vol] 8.8 mg/dL Normal 8.5-10.5 [facility] Comment on above: Order Comment: Campu s: M Result Comment: NOTE NEW NORMAL RANGE DUE TO REAGENT CHANGE Performed By: #### L 500.15439, L500.26222 ####[facility] RCUOBJZYKR7817 [place], [place] [address]Zs# [phone] Chloride [Moles/Vol] 109 mmol/L High 98-107 [facility] Comment on above: Order Comment: Campu s: M Performed By: #### L 500.38850, L5.58717 ####[facility] ISWWOEFACM9322 [place], [place] [address]Zs# [phone] CO2 [Moles/Vol] 28.0 mmol/L Normal 21-32 [facility] Comment on above: Order Comment: Benjiu s: M Performed By: #### L 500.77266, L5.46053 ####[facility] YWQIKJFGBP5151 [place], [place] [address]Rx# [phone] Creatinine [Mass/Vol] 0.64 mg/dL Normal 0.510-0.950 [facility] Comment on above: Order Comment: Benjiu s: M Result Comment: Cleopatra ents receiving either N-Acetylcysteine (NAC) orMetamizole prior to venipuncture, may have falsely depressedresults. Performed By: #### L 500.69074, .95246 ####[facility] LTUUMUJXHO2985 [place], [place] [address]Qi# [phone] Glucose [Mass/Vol] 160 mg/dL High 70-100 [facility] Comment on above: Order Comment: Benjiu s: M Result Comment: Delt a check [id number] Normal Fasting; 100-125 Impaired Fasting; greaterthan 126 on more than one result- Diabetes. ADA guidelines.Results may be falsely elevated after the administration ofSulfapyridine.Results may be falsely depressed after the administration ofSulfasalazine. Performed By: #### L 500.51444, L5.79183 ####[facility] HPROMBUSNV4140 [place], [place] [address]Kn# [phone] Potassium [Moles/Vol] 3.8 mmol/L Normal 3.5-5.1 [facility] Comment on above: Order Comment: Benjiu s: M Performed By: #### L 500.34288, L5.88665 ####[facility] WUJUKRUJRY0355 [place], [place] [address]Cu# [phone] Sodium [Moles/Vol] 141 mmol/L Normal 136-145 [facility] Comment on above: Order Comment: Campu s: M Performed By: #### L 500.08106, L500.56002 ####[facility] PYKIIMNYAX9314 [place], [place] [address]Ra# [phone] Urea nitrogen [Mass/Vol] 9 mg/dL Normal 7-26 [facility] Comment on above: Order Comment: Campu s: M Performed By: #### L 500.83693, L500.82310 ####[facility] YKQJYPZZVX9712 [place], [place] [address]Iv# [phone] Urea nitrogen/Creatinine [Mass ratio] 14 mg/mg Low 15-24 [facility] Comment on above: Order Comment: Campu s: M Performed By: #### L 500.28047, L500.93350 ####[facility] JBMYDVAXGI9426 [place], [place] [address]Hf# [phone] DISCH.SUMon 12-30-[address] [facility] GFR ESTon 12-30-2021 IF AMER Greater than 60 Normal [facility] Comment on above: Order Comment: Campu s: M Performed By: #### L 500.53530, L500.08795 ####[facility] BQKOAYMJYJ7754 [place], [place] [address]Kh# [phone] IF non-AFR AMER Greater than 60 Normal [facility] Comment on above: Order Comment: Campu s: M Performed By: #### L 500.01112, L500.99758 ####[facility] V[address]TOALLZN[address] [place] [address]Ay# [phone] GLUCOSE METERon 12-30-2021 Glucose [Mass/Vol] 141 mg/dL High 70-115 [facility] Glucose [Mass/Vol] 184 mg/dL High 70-115 [facility] Glucose [Mass/Vol] 269 mg/dL High 70-115 [facility] HGB A1C GLYCOHBon 12-30-2021 HbA1c (Bld) [Mass fraction] 6.2 % High 4.3-6.0 [facility] Comment on above: Order Comment: Campu s: M Performed By: #### L 550.13319 ####[facility] BRYWLERJCM4149 [place], [place] [address]Oe# [phone] BMPon 12-29-2021 Anion gap [Moles/Vol] 7 mmol/L Normal 5-16 [facility] Comment on above: Order Comment: Campu s: M Performed By: #### L 500.98569, L500.43113 ####[facility] TZTKTIIAGC4973 [place], [place] [address]Lw# [phone] Calcium [Mass/Vol] 7.1 mg/dL Low 8.5-10.5 [facility] Comment on above: Order Comment: Campu s: M Result Comment: NOTE NEW NORMAL RANGE DUE TO REAGENT CHANGE Performed By: #### L 500.03501, L500.41714 ####[facility] EVZQPGFLFO8579 [place], [place] [address]Ca# [phone] Chloride [Moles/Vol] 114 mmol/L High 98-107 [facility] Comment on above: Order Comment: Campu s: M Performed By: #### L 500.98949, L500.75455 ####[facility] ZMFNBMNZJF3945 [place], [place] [address]Fg# [phone] CO2 [Moles/Vol] 22.0 mmol/L Normal 21-32 [facility] Comment on above: Order Comment: Campu s: M Performed By: #### L 500.65840, L500.46048 ####[facility] OOUWHFNHJX5890 [place], [place] [address]Gp# [phone] Creatinine [Mass/Vol] 0.52 mg/dL Normal 0.510-0.950 [facility] Comment on above: Order Comment: Campu s: M Result Comment: Cleopatra ents receiving either N-Acetylcysteine (NAC) orMetamizole prior to venipuncture, may have falsely depressedresults. Performed By: #### L 500.63435, L500.24254 ####[facility] YAAMFAHVJD9461 [place], [place] [address]Sx# [phone] Glucose [Mass/Vol] 94 mg/dL Normal 70-100 [facility] Comment on above: Order Comment: Campu s: M Result Comment: 70-1 00- Normal Fasting; 100-125 Impaired Fasting; greaterthan 126 on more than one result- Diabetes. ADA guidelines.Results may be falsely elevated after the administration ofSulfapyridine.Results may be falsely depressed after the administration ofSulfasalazine. Performed By: #### L 500.08836, L500.91580 ####[facility] VNGCWHUTTC2425 [place], [place] [address]Ns# [phone] Potassium [Moles/Vol] 3.2 mmol/L Low 3.5-5.1 [facility] Comment on above: Order Comment: Campu s: M Result Comment: Slig ht Hemolysis, Result may be affected. Performed By: #### L 500.84478, L500.48204 ####[facility] Y[address]WNZTHARJ30[address] [place] [address]Xh# [phone] Sodium [Moles/Vol] 143 mmol/L Normal 136-145 [facility] Comment on above: Order Comment: Campu s: M Result Comment: Delt a check reviewed Performed By: #### L 500.01839, L500.25593 ####[facility] BDOIMTMLCU53[address] [place] [address]Za# [phone] Urea nitrogen [Mass/Vol] 6 mg/dL Low 7-26 [facility] Comment on above: Order Comment: Campu s: M Performed By: #### L 500.59985, L500.74084 ####[facility] MBVMTGNNUH07[address] [place] [address]Up# [phone] Urea nitrogen/Creatinine [Mass ratio] 11 mg/mg Low 15-24 [facility] Comment on above: Order Comment: Campu s: M Performed By: #### L 500.93380, L500.44687 ####[facility] DPMABQWHXI5610 [place], [place] [address]By# [phone] CBC W/DIFFon 12-29-2021 BASO ABS 0.00 K/CU MM Normal 0-0.2 [facility] Comment on above: Order Comment: Campu s: M Performed By: #### L 200.08377 ####[facility] CJCFVSUFKM9[address] [place] [address]He# [phone] Basophils/100 WBC (Bld) 0.3 % Normal 0-2 [facility] Comment on above: Order Comment: Campu s: M Performed By: #### L 200.56419 ####[place] [address]Ph# [phone] EOS ABS 0.00 K/CU MM Normal 0-0.5 [facility] Comment on above: Order Comment: Campu s: M Performed By: #### L 200.80117 ####[place] [address]Ph# [phone] Eosinophils/100 WBC (Bld) 0.2 % Normal 0-5 [facility] Comment on above: Order Comment: Campu s: M Performed By: #### L 200.18274 ####[address] [address]Ov# [phone] Erythrocyte distribution width (RBC) [Ratio] 13.5 % Normal 11-14.5 [facility] Comment on above: Order Comment: Campu s: M Performed By: #### L 200.44510 ####[facility] [id number] [place] [address]Yv# [phone] Hematocrit (Bld) [Volume fraction] 34.3 % Low 35.0-47.0 [facility] Comment on above: Order Comment: Campu s: M Performed By: #### L 200.55790 ####[address] [address]Ca# [phone] Hemoglobin (Bld) [Mass/Vol] 11.5 g/dL Normal 11.5-15.5 [facility] [place] Comment on above: Order Comment: Campu s: M Performed By: #### L 200.78771 ####[facility] [id number] [place] [id number]# [phone] IMMATR GRAN ABS 0.20 K/CU MM Normal Less than 2 [facility] [place] Comment on above: Order Comment: Campu s: M Performed By: #### L 200.12916 ####[place] [id number]# [phone] IMMATURE GRAN % 1.8 % Normal Less than 2 [facility] [place] Comment on above: Order Comment: Campu s: M Performed By: #### L 200.54050 ####[place] [id number]# [phone] LYMPH ABS 3.60 K/CU MM Normal 0.9-4.4 [facility] Comment on above: Order Comment: Campu s: M Performed By: #### L 200.11709 ####[place] [id number]# [phone] Lymphocytes/100 WBC (Bld) 29.4 % Normal 20-40 [facility] Comment on above: Order Comment: Campu s: M Performed By: #### L 200.74861 ####[facility] [id number] [place], [place] [id number]# [phone] MCHC (RBC) [Mass/Vol] 33.5 g/dL Normal 32.0-36.0 [facility] [place] Comment on above: Order Comment: Campu s: M Performed By: #### L 200.72570 ####[facility] [id number] [place] [address]Rn# [phone] MCV (RBC) [Entitic vol] 86.2 fL Normal 80.0-99.0 [facility] Comment on above: Order Comment: Campu s: M Performed By: #### L 200.90374 ####[facility] ZBJMUNTVMN7023 [place], [place] [address]Hv# [phone] MONO ABS 0.80 K/CU MM Normal 0.1-1.1 [facility] Comment on above: Order Comment: Campu s: M Performed By: #### L 200.15249 ####[facility] KBFMOGEVGC2329 [place], [place] [address]Aq# [phone] Monocytes/100 WBC (Bld) 6.7 % Normal 2-10 [facility] Comment on above: Order Comment: Campu s: M Performed By: #### L 200.87457 ####[place] [address]Ph# [phone] NEUTROPHIL ABS 7.60 K/CU MM Normal 2.0-8.3 [facility] Comment on above: Order Comment: Campu s: M Performed By: #### L 200.19359 ####[facility] [address]EZTB[address] [place], [place] [address]Ph# [phone] Neutrophils/100 WBC (Bld) 61.6 % Normal 45-75 [facility] Comment on above: Order Comment: Campu s: M Performed By: #### L 200.05273 ####[facility] ABXRRLJNNI00[address] [place], [place] [address]Ph# [phone] Nucleated RBC/100 WBC (Bld) [Ratio] 0.0 % Normal Less than 1 [facility] Comment on above: Order Comment: Campu s: M Performed By: #### L 200.35127 ####[facility] TEZLMJZTDA[address] [place] [address]Rx# [phone] Platelet mean volume (Bld) [Entitic vol] 11.7 fL Normal 9.4-12.4 [facility] Comment on above: Order Comment: Campu s: M Performed By: #### L 200.30470 ####[facility] EIHAZIDQQP[address] [place], [place] [address]Ph# [phone] PLT 167 K/CU MM Normal 150-450 [facility] Comment on above: Order Comment: Campu s: M Performed By: #### L 200.39435 ####[facility] QRPEGHMLUW9191 [place], [place] [address]Nv# [phone] RBC 3.98 M/CU MM Normal 3.90-5.30 [facility] Comment on above: Order Comment: Campu s: M Performed By: #### L 200.90793 ####[facility] NBNLCYRSAB0437 [place], [place] [address]Rr# [phone] WBC 12.4 K/CUMM High 4.5-11.0 [facility] Comment on above: Order Comment: Campu s: M Performed By: #### L 200.19007 ####[facility] ZRGGMEZUWX4445 [place], [place] [address]Zp# [phone] GFR ESTon 12-29-2021 IF AMER Greater than [address] [facility] Comment on above: Order Comment: Campu s: M Performed By: #### L 500.55764, L500.91712 ####[facility] HNHCVOENZC9372 [place], [place] [address]Tb# [phone] IF non-AFR AMER Greater than 60 Normal [facility] Comment on above: Order Comment: Campu s: M Performed By: #### L 500.83305, L500.13983 ####[facility] FUOMJSLZSM7[address] [place] [address]Rz# [phone] GLUCOSE METERon 12-29-2021 Glucose [Mass/Vol] 266 mg/dL High 70-115 [facility] Glucose [Mass/Vol] 109 mg/dL Normal 70-115 [facility] Glucose [Mass/Vol] 67 mg/dL Low 70-115 [facility] Glucose [Mass/Vol] 49 mg/dL Critically low 70-115 [facility] [place] Glucose [Mass/Vol] 63 mg/dL Low 70-115 [facility] Glucose [Mass/Vol] 98 mg/dL Normal 70-115 [facility] PROG IMSon 12-29-[address] [facility] Progress Note-Hospitalist Normal [facility] ADM.INTERVon 12-28-[address] [facility] Admission Interval Note Normal [facility] BETA-HYDRO BUTon 12-28-2021 BETA-HYDRO BUT 4.79 MMOL/L High 0.02-0.27 [facility] Comment on above: Order Comment: Campu s: M Result Comment: Bloo d ketone levels will vary depending on several factors(for example, food intake, alcohol intake and conditionssuch as ketoacidosis). Patients should be fasting 12 hoursprior to collection.PATIENT SAMPLES WITH HIGH LEVELS OF M-PROTEIN (I.E.GAMMOPATHY) MAY AFFECT THE ACCURACY OF THIS ASSAY. Performed By: #### L 500.25241, L500.74672, L500.14694 ####[facility] CDNFEOSHDH0218 [place], [place] [address]Az# [phone] [facility] Anion gap [Moles/Vol] 13 mmol/L Normal 5-16 [facility] Comment on above: Order Comment: Campu s: M Performed By: #### L 500.40828, L500.63032, L500.83781 ####[facility] PVOVCRNIGP8450 [place], [place] [address]Ws# [phone] Calcium [Mass/Vol] 8.9 mg/dL Normal 8.5-10.5 [facility] Comment on above: Order Comment: Campu s: M Result Comment: NOTE NEW NORMAL RANGE DUE TO REAGENT CHANGE Performed By: #### L 500.85003, L500.34988, L500.49005 ####[facility] VIBQONOGST7718 [place], [place] [address]Dp# [phone] Chloride [Moles/Vol] 105 mmol/L Normal 98-107 [facility] Comment on above: Order Comment: Campu s: M Performed By: #### L 500.58756, L500.23897, L500.26030 ####[facility] CVFNJTJKAQ7274 [place], [place] [address]Ed# [phone] CO2 [Moles/Vol] 18.0 mmol/L Low 21-32 [facility] Comment on above: Order Comment: Zach richter: M Performed By: #### L 500.59245, L500.79656, L500.26429 ####[facility] GJIUWGLSLW0088 [place], [place] [address]Wb# [phone] Creatinine [Mass/Vol] 0.61 mg/dL Normal 0.510-0.950 [facility] Comment on above: Order Comment: Zach s: M Result Comment: Cleopatra ents receiving either N-Acetylcysteine (NAC) orMetamizole prior to venipuncture, may have falsely depressedresults. Performed By: #### L 500.37474, L500.71689, L500.18275 ####[facility] ULTEFGEXOS3664 [place], [place] [address]Lw# [phone] Glucose [Mass/Vol] 80 mg/dL Normal 70-100 [facility] Comment on above: Order Comment: Zach s: M Result Comment: 70-1 00- Normal Fasting; 100-125 Impaired Fasting; greaterthan 126 on more than one result- Diabetes. ADA guidelines.Results may be falsely elevated after the administration ofSulfapyridine.Results may be falsely depressed after the administration ofSulfasalazine. Performed By: #### L 500.33754, L500.65754, L500.77509 ####[facility] PADUPMCONR0474 [place], [place] [address]Ao# [phone] Potassium [Moles/Vol] 2.9 mmol/L Critically low 3.5-5.1 [facility] Comment on above: Order Comment: Zach s: M Result Comment: Slig ht Hemolysis, Result may be affected.Critical Result(s)Called at: 19:38:48 on 12/28/2021 by lls. Called to vinh back by: DR MORLEY Performed By: #### L 500.69918, L500.45617, L500.61085 ####[facility] JAJDAVRCZZ9188 [place], [place] [address]Tr# [phone] Sodium [Moles/Vol] 136 mmol/L Normal 136-145 [facility] Comment on above: Order Comment: Campu s: M Performed By: #### L 500.62523, L500.23416, L500.61252 ####[facility] PXBCSVWDWV8717 [place], [place] [address]Iv# [phone] Urea nitrogen [Mass/Vol] 11 mg/dL Normal 7-26 [facility] Comment on above: Order Comment: Campu s: M Performed By: #### L 500.75545, L500.90804, L500.08306 ####[facility] VBKKNVIKSK3987 [place], [place] [address]Ak# [phone] Urea nitrogen/Creatinine [Mass ratio] 18 mg/mg Normal 15-24 [facility] Comment on above: Order Comment: Campu s: M Performed By: #### L 500.64082, L500.80386, L500.73165 ####[facility] GVWKYTHJKF3839 [place], [place] [address]Ys# [phone] Stacie 12-28-2021 EMERGENCY PHYSICIAN REPORT This is a preliminary report only, as the practitioner review and authentication has not occurred. Normal [facility] ER Normal [facility] GFR ESTon 12-28-2021 IF AMER Greater than 60 Normal [facility] Comment on above: Order Comment: Campu s: M Performed By: #### L 500.67338, L500.02674, L500.44266 ####[facility] BLEQRLPGOR5762 [place], [place] [address]Ze# [phone] IF non-AFR AMER Greater than 60 [facility] Comment on above: Order Comment: Campu s: M Performed By: #### L 500.61952, L500.97635, L500.88673 ####[facility] KTANEYVIHL8368 [place], [place] [address]Kk# [phone] VBG PANELon 12-28-2021 BASE EXCESS -4.6 MMOL/L Low 0-2 [facility] Comment on above: Order Comment: Campu s: M Performed By: #### L 100.26110 ####[facility] UGESBAJTZU7116 [place], [place] [address]Ow# [phone] Body temperature 98.6 [degF] Normal [facility] Comment on above: Order Comment: Campu s: M Performed By: #### L 100.62835 ####[facility] RHTHNRIKUF[address] [place] [address]Uv# [phone] UN[address] Normal [facility] Comment on above: Order Comment: Campu s: M Performed By: #### L 100.90346 ####[facility] SSXQUGYWTI[address] [place] [address]Lr# [phone] HCO3 (Bld) [Moles/Vol] 17.6 mmol/L Low 22-26 M [facility] Comment on above: Order Comment: Campu s: M Performed By: #### L 100.14220 ####[facility] NKTZITKYCY[address] [place] [address]Ul# [phone] Hemoglobin (Bld) [Mass/Vol] 13.9 g/dL Low 16.0-22.0 [facility] Comment on above: Order Comment: Campu s: M Performed By: #### L 100.73878 ####[facility] BTITKJCURH9[address] [place] [address]Ge# [phone] SAMPLE SITE UNKNOWN Normal [facility] Comment on above: Order Comment: Campu s: M Performed By: #### L 100.66818 ####[facility] GGFZWUQMHK85[address] [place] [address]Vl# [phone] SAMPLE TYPE VENOUS Normal [facility] Comment on above: Order Comment: Campu s: M Performed By: #### L 100.40793 ####[facility] VNFBKKNEKY12[address] [place] [address]Vc# [phone] VBG CARBOXYHGB 1.5 % Normal 0-10 [facility] Comment on above: Order Comment: Campu s: M Performed By: #### L 100.34113 ####[facility] UDBGPMDZGI7065 [place], [place] [address]Um# [phone] VBG METHGB 0.3 % Low 0.4-1.5 [facility] Comment on above: Order Comment: Campu s: M Performed By: #### L 100.98682 ####[facility] KLZVXWVIKS3057 [place], [place] [address]Wy# [phone] VBG O2 CAPACITY 19.0 VOL% Normal [facility] Comment on above: Order Comment: Campu s: M Performed By: #### L 100.40866 ####[place] [address] [place], [place] [address]Cz# [phone] VBG O2 HG SATUR 88.4 % High 40-70 [facility] Comment on above: Order Comment: Campu s: M Performed By: #### L 100.99901 ####[facility] YRZEVGDFTA2392 [place], [place] [address]Hx# [phone] VBG PCO2 25.6 MMHG Critically low 40-50 [facility] Comment on above: Order Comment: Campu s: M Result Comment: VALU E IS OUTSIDE OF THE VERIFIED RANGES OF THIS ANALYZER.ADAM CHOE PCO2 25.6 MMHG Performed By: #### L 100.52606 ####[facility] SYNXKBMNTF4361 [place], [place] [address]Rq# [phone] VBG PH 7.46 MMHG High 7.31-7.41 [facility] Comment on above: Order Comment: Campu s: M Performed By: #### L 100.62847 ####[facility] JOMTWAUXUN1648 [place], [place] [address]Pl# [phone] VBG PO2 54.3 MMHG High 35-45 [facility] Comment on above: Order Comment: Campu s: M Performed By: #### L 100.05696 ####[facility] TCEBAUECZA9962 [place], [place] [address]Ep# [phone] BETA-HYDRO BUTon 12-27-2021 BETA-HYDRO BUT 3.29 MMOL/L High 0.02-0.27 [facility] Comment on above: Order Comment: Campu s: M Result Comment: Bloo d ketone levels will vary depending on several factors(for example, food intake, alcohol intake and conditionssuch as ketoacidosis). Patients should be fasting 12 hoursprior to collection.PATIENT SAMPLES WITH HIGH LEVELS OF M-PROTEIN (I.E.GAMMOPATHY) MAY AFFECT THE ACCURACY OF THIS ASSAY. Performed By: #### L 500.51671 ####[facility] OEBKVBLDOS7851 [place], [place] [address]Dg# [phone] BMPon 12-27-2021 Anion gap [Moles/Vol] 15 mmol/L Normal 5-16 [facility] Comment on above: Order Comment: Campu s: M Performed By: #### L 500.33665, L500.36151, L500.49657 ####[facility] MMVLNJJALF9188 [place], [place] [address]Pd# [phone] Calcium [Mass/Vol] 9.2 mg/dL Normal 8.5-10.5 [facility] Comment on above: Order Comment: Campu s: M Result Comment: NOTE NEW NORMAL RANGE DUE TO REAGENT CHANGE Performed By: #### L 500.76282, L500.13273, L500.76491 ####[facility] ALTGULRHJK4005 [place], [place] [address]Js# [phone] Chloride [Moles/Vol] 107 mmol/L Normal 98-107 [facility] Comment on above: Order Comment: Campu s: M Performed By: #### L 500.80562, L500.66354, L500.32031 ####[facility] XIEJNTBTDC8002 [place], [place] [address]Fx# [phone] CO2 [Moles/Vol] 18.0 mmol/L Low 21-32 [facility] Comment on above: Order Comment: Campu s: M Performed By: #### L 500.11005, L500.65477, L500.97310 ####[facility] LFPCFSCHUE4590 [place], [place] [address]Jy# [phone] Creatinine [Mass/Vol] 0.67 mg/dL Normal 0.510-0.950 [facility] Comment on above: Order Comment: Campu s: M Result Comment: Cleopatra ents receiving either N-Acetylcysteine (NAC) orMetamizole prior to venipuncture, may have falsely depressedresults. Performed By: #### L 500.17787, L500.54114, L500.77918 ####[facility] ZKTLQTOASC1956 [place], [place] [address]Hl# [phone] Glucose [Mass/Vol] 118 mg/dL High 70-100 [facility] Comment on above: Order Comment: Campu s: M Result Comment: 70-1 00- Normal Fasting; 100-125 Impaired Fasting; greaterthan 126 on more than one result- Diabetes. ADA guidelines.Results may be falsely elevated after the administration ofSulfapyridine.Results may be falsely depressed after the administration ofSulfasalazine. Performed By: #### L 500.88652, L500.70214, L500.21256 ####[facility] DDJVLKQGPV4898 [place], [place] [address]Xi# [phone] Potassium [Moles/Vol] 3.3 mmol/L Low 3.5-5.1 [facility] Comment on above: Order Comment: Campu s: M Performed By: #### L 500.93207, L500.45691, L500.12672 ####[facility] NUAAQMXYHN7567 [place], [place] [address]Be# [phone] Sodium [Moles/Vol] 140 mmol/L Normal 136-145 [facility] Comment on above: Order Comment: Campu s: M Performed By: #### L 500.36947, L500.80486, L500.38162 ####[facility] VHHWGPAWYC8716 [place], [place] [address]Kw# [phone] Urea nitrogen [Mass/Vol] 14 mg/dL Normal 7-26 [facility] Comment on above: Order Comment: Campu s: M Performed By: #### L 500.04173, L500.09533, L500.75345 ####[facility] CUFHALJRYF1473 [place], [place] [address]Fp# [phone] Urea nitrogen/Creatinine [Mass ratio] 21 mg/mg Normal 15-24 [facility] Comment on above: Order Comment: Campu s: M Performed By: #### L 500.25458, L500.44322, L500.58543 ####[place] [address] [place], [place] [address]Rh# [phone] CBC W/DIFFon 12-27-2021 BASO ABS 0.00 K/CU MM Normal 0-0.2 [facility] Comment on above: Order Comment: Campu s: M Performed By: #### L 200.95863 ####[address] [address]Dc# [phone] Basophils/100 WBC (Bld) 0.3 % Normal 0-2 [facility] Comment on above: Order Comment: Campu s: M Performed By: #### L 200.46320 ####[facility] FLDESLMJDU7[address] [place] [address]He# [phone] EOS ABS 0.00 K/CU MM Normal 0-0.5 [facility] Comment on above: Order Comment: Campu s: M Performed By: #### L 200.70999 ####[facility] IDOJMZQBZS88[address] [place] [address]Zj# [phone] Eosinophils/100 WBC (Bld) 0.0 % Normal 0-5 [facility] Comment on above: Order Comment: Campu s: M Performed By: #### L 200.69778 ####[facility] WKHJQPNMEM[address] [place] [address]Hk# [phone] Erythrocyte distribution width (RBC) [Ratio] 13.8 % Normal 11-14.5 [facility] Comment on above: Order Comment: Campu s: M Performed By: #### L 200.09987 ####[facility] YKHEKBGJQA036[address] [place] [address]At# [phone] Hematocrit (Bld) [Volume fraction] 36.4 % Normal 35.0-47.0 [facility] Comment on above: Order Comment: Campu s: M Performed By: #### L 200.92332 ####[place] [address]Ph# [phone] Hemoglobin (Bld) [Mass/Vol] 12.1 g/dL Normal 11.5-15.5 [facility] Comment on above: Order Comment: Campu s: M Performed By: #### L 200.61420 ####[place] [address]Ph# [phone] IMMATR GRAN ABS 0.30 K/CU MM Normal Less than 2 [facility] Comment on above: Order Comment: Campu s: M Performed By: #### L 200.65561 ####[place] [address]01[address]Ph# [phone] IMMATURE GRAN % 1.8 % Normal Less than 2 [facility] Comment on above: Order Comment: Campu s: M Performed By: #### L 200.56264 ####[facility] JVJYZDJAJE[address] [place], [place] [address]Ph# [phone] LYMPH ABS 1.30 K/CU MM Normal 0.9-4.4 [facility] Comment on above: Order Comment: Campu s: M Performed By: #### L 200.15228 ####[facility] VMFEJYUIVY32[address] [place], [place] [address]Ph# [phone] Lymphocytes/100 WBC (Bld) 9.4 % Low 20-40 [facility] Comment on above: Order Comment: Campu s: M Performed By: #### L 200.86641 ####[facility] LEBLERPXYA2971 [place], [place] [address]Ip# [phone] MCHC (RBC) [Mass/Vol] 33.2 g/dL Normal 32.0-36.0 [facility] [place] Comment on above: Order Comment: Campu s: M Performed By: #### L 200.13093 ####[facility] SELLQUXUFR6[address] [place] [address]Dx# [phone] MCV (RBC) [Entitic vol] 85.4 fL Normal 80.0-99.0 [facility] Comment on above: Order Comment: Campu s: M Performed By: #### L 200.26596 ####[address] [address]Jt# [phone] MONO ABS 0.60 K/CU MM Normal 0.1-1.1 [facility] Comment on above: Order Comment: Campu s: M Performed By: #### L 200.28893 ####[address] [address]Ja# [phone] Monocytes/100 WBC (Bld) 4.1 % Normal 2-10 [facility] Comment on above: Order Comment: Campu s: M Performed By: #### L 200.30410 ####[address] [address]Qi# [phone] NEUTROPHIL ABS 11.70 K/CU MM High 2.0-8.3 [facility] Comment on above: Order Comment: Campu s: M Performed By: #### L 200.68742 ####[facility] NNVSVZEKFL[address] [place] [address]Rc# [phone] Neutrophils/100 WBC (Bld) 84.4 % High 45-75 [facility] Comment on above: Order Comment: Campu s: M Performed By: #### L 200.34647 ####[facility] VQLCLCEWEA[address] [place] [address]Rt# [phone] Nucleated RBC/100 WBC (Bld) [Ratio] 0.0 % Normal Less than 1 [facility] Comment on above: Order Comment: Campu s: M Performed By: #### L 200.20115 ####[facility] GTHXMNSOZQ7690 [place], [place] [address]Jv# [phone] Platelet mean volume (Bld) [Entitic vol] 12.1 fL Normal 9.4-12.4 [facility] Comment on above: Order Comment: Campu s: M Performed By: #### L 200.50843 ####[facility] CPGPATXMMP1001 [place], [place] [address]Rc# [phone] PLT 184 K/CU MM Normal 150-450 [facility] Comment on above: Order Comment: Campu s: M Performed By: #### L 200.36929 ####[facility] FBJFEHPDOG0479 [place], [place] [address]Pz# [phone] RBC 4.26 M/CU MM Normal 3.90-5.30 [facility] Comment on above: Order Comment: Campu s: M Performed By: #### L 200.73335 ####[facility] XPTUMLJJDA5986 [place], [place] [address]Xd# [phone] WBC 13.9 K/CUMM High 4.5-11.0 [facility] Comment on above: Order Comment: Campu s: M Performed By: #### L 200.76200 ####[facility] R[address]ZAY[address]ZV[address] [place] [address]Vj# [phone] Stacie 12-27-2021 EMERGENCY PHYSICIAN REPORT This is a preliminary report only, as the practitioner review and authentication has not occurred. Normal [facility] ER Normal [facility] G[facility] ESTon 12-27-2021 IF AMER Greater than 60 Normal [facility] Comment on above: Order Comment: Campu s: M Performed By: #### L 500.90601, L500.62566, L500.12455 ####[facility] OKZWBATXEI4315 [place], [place] [address]Ku# [phone] IF non-AFR AMER Greater than 60 Normal [facility] [place] Comment on above: Order Comment: Campu s: M Performed By: #### L 500.05049, L500.60617, L500.11891 ####[facility] UBXNZRUMCJ4469 [place], [place] [address]Dn# [phone] HCGon 12-27-2021 HCG SER RESULT Negative Normal NEGATIVE [facility] Comment on above: Order Comment: Campu s: M Performed By: #### L 500.16481, L500.61222, L500.58327 ####[facility] JEHDQXIVEU2794 [place], [place] [address]Mm# [phone] LACTATE BLOODon 12-27-2021 LACTATE BLOOD 2.43 MMOL/L High 0.40-2.00 [facility] Comment on above: Order Comment: Campu s: M Performed By: #### L 550.95057 ####[facility] TZPFZGETXP[address] [place] [address]Wa# [phone] LIPASEon 12-27-2021 Lipase [Catalytic activity/Vol] 25 U/L Normal 12-60 [facility] Comment on above: Order Comment: Campu s: M Result Comment: NOTE NEW NORMAL RANGE DUE TO REAGENT CHANGE Performed By: #### L 500.75270, L500.25808 ####[facility] [address]HTWGHTZ[address] [place] [address]Ns# [phone] LIVERon 12-27-2021 Albumin [Mass/Vol] 4.2 g/dL Normal 3.2-5.0 [facility] Comment on above: Order Comment: Campu s: M Performed By: #### L 500.29605, L500.28191 ####[facility] VHLQZGKKQJ7360 [place], [place] [address]Cp# [phone] Albumin/Globulin [Mass ratio] 1.7 {ratio} Normal 0.8-2.0 [facility] Comment on above: Order Comment: Campu s: M Performed By: #### L 500.86541, L500.61336 ####[facility] UHAUDQPBXN9183 [place], [place] [address]Rq# [phone] ALK PHOS 87 U/L Normal 45-117 [facility] Comment on above: Order Comment: Campu s: M Performed By: #### L 500.44048, L500.79450 ####[facility] MDHUAOZVOT2994 [place], [place] [address]Gp# [phone] ALT [Catalytic activity/Vol] 13 U/L Normal 13-61 [facility] Comment on above: Order Comment: Campu s: M Result Comment: RESU LTS MAY BE FALSELY DEPRESSED AFTER THE ADMINISTRATION OFSULFASALAZINE AND/OR SULFAPYRIDINE. Performed By: #### L 500.96478, L500.39283 ####[place] [id number] [place], [place] [address]Le# [phone] AST [Catalytic activity/Vol] 23 U/L Normal 8-34 [facility] Comment on above: Order Comment: Campu s: M Result Comment: RESU LTS MAY BE FALSELY DEPRESSED AFTER THE ADMINISTRATION OFSULFASALAZINE AND/OR SULFAPYRIDINE. Performed By: #### L 500.52176, L500.08713 ####[facility] [id number] [place], [place] [address]Bm# [phone] BILI DIRECT 0.3 MG/DL Normal 0.00-0.36 [facility] Comment on above: Order Comment: Campu s: M Result Comment: NOTE NEW NORMAL RANGE DUE TO REAGENT CHANGE Performed By: #### L 500.02913, L500.62785 ####[facility] [id number] [place], [place] [address]Zs# [phone] BILI TOTAL 0.90 MG/DL Normal 0.2-1.0 [facility] Comment on above: Order Comment: Campu s: M Performed By: #### L 500.97747, L500.26769 ####[facility] [id number] [place], [place] [address]Dj# [phone] Globulin (S) [Mass/Vol] 2.5 g/dL Normal 2.2-4.2 [facility] Comment on above: Order Comment: Campu s: M Performed By: #### L 500.52485, L500.95131 ####[facility] [id number] [place], [place] [address]Fa# [phone] Protein [Mass/Vol] 6.7 g/dL Normal 6.0-8.5 [facility] Comment on above: Order Comment: Campu s: M Performed By: #### L 500.72557, L500.02326 ####[facility] [id number] [place], [place] [address]Yt# [phone] [id number] 12-27-2021 SARS-CoV-2 (COVID-19) RNA DANIEL+probe Ql (Unsp spec) Negative Invalid Interpretation Code Negative [facility] Comment [...] performed by PCR. Performed By: #### L 770.29327 ####[facility] VFEPMCUEJB8047 [place], [place] [address]Tg# [phone] UA COMPLETEon 12-27-2021 Color (U) Yellow Normal [facility] Comment on above: Order Comment: Campu s: M Performed By: #### L 600.75616 ####[facility] BCISRAZZQG0153 [place], [place] [address]Jz# [phone] Glucose (U) [Mass/Vol] Negative Normal NORMAL [facility] [place] Comment on above: Order Comment: Campu s: M Performed By: #### L 600.62588 ####[facility] SWCCNOTCOO5121 [place], [place] [address]Rc# [phone] UA APPEARANCE Clear Normal CLEAR [facility] Comment on above: Order Comment: Campu s: M Performed By: #### L 600.03658 ####[facility] UHOTCTSHKD[address] [place] [address]Qw# [phone] UA BILIRUBIN Negative Normal NEGATIVE [facility] Comment on above: Order Comment: Campu s: M Performed By: #### L 600.42632 ####[facility] VTYSUMUPVB[address] [place] [address]Oa# [phone] UA BLOOD Negative Normal NEGATIVE [facility] Comment on above: Order Comment: Campu s: M Performed By: #### L 600.15860 ####[address] [address]Xg# [phone] UA KETONE [address] [facility] Comment on above: Order Comment: Campu s: M Performed By: #### L 600.62004 ####[facility] SYRFIVDUBR[address] [place] [address]Zj# [phone] UA LK ESTERASE Negative Normal NEGATIVE [facility] Comment on above: Order Comment: Campu s: M Performed By: #### L 600.44984 ####[address] [address]Ei# [phone] UA NITRITE Negative Normal NEGATIVE [facility] Comment on above: Order Comment: Campu s: M Performed By: #### L 600.37260 ####[facility] SNTJNIBSZI3723[address] [place] [address]Kk# [phone] UA PH 6.0 Normal 5-6 [facility] [place] Comment on above: Order Comment: Campu s: M Performed By: #### L 600.80369 ####[facility] FJSLPHZKGW356[address] [place] [address]Cl# [phone] UA PROTEIN Negative Normal NEGATIVE [facility] Comment on above: Order Comment: Campu s: M Performed By: #### L 600.31606 ####[facility] Y[address]JAGJMT[address] [place] [address], [place] [address]Mn# [phone] UA SPEC GRAV 1.018 Normal 1.005-1.030 [facility] Comment on above: Order Comment: Campu s: M Performed By: #### L 600.33370 ####[facility] CDDMEZYNHD0277 [place], [place] [address]Pj# [phone] UA UROBILINOGEN 2.[address] [facility] Comment on above: Order Comment: Campu s: M Performed By: #### L 600.28860 ####[facility] JQFKOITLMJ[address] [place] [address]Ee# [phone] VBG PHon 12-27-2021 VBG PH 7.57 MMHG High 7.31-7.41 [facility] Comment on above: Order Comment: Campu s: M Performed By: #### L 100.55953 ####[facility] YIZZUJBYUY[address] [place] [address]Aw# [phone] Stacie 12-26-2021 EMERGENCY PHYSICIAN REPORT This is a preliminary report only, as the practitioner review and authentication has not occurred. Normal [facility] ER Normal [facility] GLUCOSE METERon 12-26-2021 Glucose [Mass/Vol] 246 mg/dL High 70-115 [facility] Glucose [Mass/Vol] 311 mg/dL High 70-115 [facility] PROG.NOTEon 12-26-[address] [facility] Progress Note-Physician [facility] A[facility] KUBon 12-25-20[address] A[address] OR KUB Normal [facility] BETA-HYDRO BUTon 12-25-2021 BETA-HYDRO BUT 2.49 MMOL/L High 0.02-0.27 [facility] Comment on above: Order Comment: Campu s: M Result Comment: Bloo d ketone levels will vary depending on several factors(for example, food intake, alcohol intake and conditionssuch as ketoacidosis). Patients should be fasting 12 hoursprior to collection.PATIENT SAMPLES WITH HIGH LEVELS OF M-PROTEIN (I.E.GAMMOPATHY) MAY AFFECT THE ACCURACY OF THIS ASSAY. Performed By: #### L 500.08708 ####[facility] DUHMQLAJKR5728 [place], [place] [address]Ll# [phone] BMPon 12-25-2021 Anion gap [Moles/Vol] 13 mmol/L Normal 5-16 [facility] [place] Comment on above: Order Comment: Campu s: M Performed By: #### L 500.92111, L500.12182, L500.13341, L500.74648, L500.15339 ####[facility] DTMYLRUTTK3270 [place], [place] [address]Ip# [phone] Calcium [Mass/Vol] 10.0 mg/dL Normal 8.5-10.5 [facility] Comment on above: Order Comment: Campu s: M Result Comment: NOTE NEW NORMAL RANGE DUE TO REAGENT CHANGE Performed By: #### L 500.63248, L500.54341, L500.00009, L500.89581, L500.54195 ####[facility] UDBNCVZTMZ2756 [place], [place] [address]Kd# [phone] Chloride [Moles/Vol] 107 mmol/L Normal 98-107 [facility] Comment on above: Order Comment: Campu s: M Performed By: #### L 500.27183, L500.87382, L500.18689, L500.42512, L500.62210 ####[facility] DEUNZHSUZJ8031 [place], [place] [address]Wv# [phone] CO2 [Moles/Vol] 17.0 mmol/L Low 21-32 [facility] Comment on above: Order Comment: Campu s: M Performed By: #### L 500.57541, L500.04450, L500.45862, L500.40086, L500.08472 ####[facility] MWLGFKFRSU1293 [place], [place] [address]Nd# [phone] Creatinine [Mass/Vol] 0.66 mg/dL Normal 0.510-0.950 [facility] [place] Comment on above: Order Comment: Campu s: M Result Comment: Cleopatra ents receiving either N-Acetylcysteine (NAC) orMetamizole prior to venipuncture, may have falsely depressedresults. Performed By: #### L 500.23175, L500.02134, L500.13911, L500.65638, L500.17906 ####[facility] LDMYMHYLFI6721 [place], [place] [address]Ws# [phone] Glucose [Mass/Vol] 359 mg/dL High 70-100 [facility] [place] Comment on above: Order Comment: Campu s: M Result Comment: 70-1 00- Normal Fasting; 100-125 Impaired Fasting; greaterthan 126 on more than one result- Diabetes. ADA guidelines.Results may be falsely elevated after the administration ofSulfapyridine.Results may be falsely depressed after the administration ofSulfasalazine. Performed By: #### L 500.21178, L500.79776, L500.07068, L500.16714, L500.03710 ####[facility] CXMLGVSKEW1580 [place], [place] [address]Ow# [phone] Potassium [Moles/Vol] 4.1 mmol/L Normal 3.5-5.1 [facility] Comment on above: Order Comment: Campu s: M Performed By: #### L 500.17038, L500.95906, L500.50272, L500.46061, L500.79323 ####[facility] AVKDGMUCLZ2627 [place], [place] [address]Vc# [phone] Sodium [Moles/Vol] 137 mmol/L Normal 136-145 [facility] Comment on above: Order Comment: Campu s: M Performed By: #### L 500.77925, L500.83839, L500.43726, L500.30686, L500.24434 ####[facility] FZXPXRMTDC2411 [place], [place] [address]Sj# [phone] Urea nitrogen [Mass/Vol] 17 mg/dL Normal 7-26 [facility] Comment on above: Order Comment: Campu s: M Performed By: #### L 500.48131, L500.39210, L500.00692, L500.14402, L500.09394 ####[facility] PSNJRPSTZK0480 [place], [place] [address]Lm# [phone] Urea nitrogen/Creatinine [Mass ratio] 26 mg/mg High 15-24 [facility] Comment on above: Order Comment: Campu s: M Performed By: #### L 500.61475, L500.44044, L500.86839, L500.03446, L500.50465 ####[facility] IZYCMWPXFA6676 [place], [place] [address]Dt# [phone] CBC W/DIFFon 12-25-2021 BASO ABS 0.00 K/CU MM Normal 0-0.2 [facility] Comment on above: Order Comment: Campu s: M Performed By: #### L 200.79786 ####[facility] LHVQEPOTWX06[address] [place] [address]Tg# [phone] Basophils/100 WBC (Bld) 0.2 % Normal 0-2 [facility] [place] Comment on above: Order Comment: Campu s: M Performed By: #### L 200.90765 ####[facility] TRQBFRXIRB1638[address] [place] [address]Vd# [phone] EOS ABS 0.00 K/CU MM Normal 0-0.5 [facility] [place] Comment on above: Order Comment: Campu s: M Performed By: #### L 200.10494 ####[facility] FCBCKFNUSR3358[address] [place] [address]As# [phone] Eosinophils/100 WBC (Bld) 0.0 % Normal 0-5 [facility] Comment on above: Order Comment: Campu s: M Performed By: #### L 200.76977 ####[facility] CAVENXKUBS2438[address] [place] [address]Ny# [phone] Erythrocyte distribution width (RBC) [Ratio] 13.4 % Normal 11-14.5 [facility] Comment on above: Order Comment: Campu s: M Performed By: #### L 200.71193 ####[facility] CPUTQHWCTG3678 [place], [place] [address]Mw# [phone] Hematocrit (Bld) [Volume fraction] 38.3 % Normal 35.0-47.0 [facility] Comment on above: Order Comment: Campu s: M Performed By: #### L 200.88633 ####[facility] BVURYZSNRD[address] [place], [place] [address]Ph# [phone] Hemoglobin (Bld) [Mass/Vol] 13.0 g/dL Normal 11.5-15.5 [facility] Comment on above: Order Comment: Campu s: M Performed By: #### L 200.52423 ####[address] [address]Bu# [phone] IMMATR GRAN ABS 0.20 K/CU MM Normal Less than 2 [facility] [place] Comment on above: Order Comment: Campu s: M Performed By: #### L 200.19152 ####[facility] BXEIFZEQKQ[address] [place], [place] [address]Ph# [phone] IMMATURE GRAN % 1.0 % Normal Less than 2 [facility] [place] Comment on above: Order Comment: Campu s: M Performed By: #### L 200.96231 ####[facility] GABGCYUQGM3207[address] [place] [address]Wt# [phone] LYMPH ABS 0.90 K/CU MM Normal 0.9-4.4 [facility] [place] Comment on above: Order Comment: Campu s: M Performed By: #### L 200.10451 ####[facility] QLHQEPIHEW[address] [place], [place] [address]Ph# [phone] Lymphocytes/100 WBC (Bld) 4.8 % Low 20-40 [facility] Comment on above: Order Comment: Campu s: M Performed By: #### L 200.95907 ####[facility] HUEDTXKLSR8969[address] [place] [address]Nj# [phone] MCHC (RBC) [Mass/Vol] 33.9 g/dL Normal 32.0-36.0 [facility] [place] Comment on above: Order Comment: Campu s: M Performed By: #### L 200.98206 ####[facility] RACNYLJNGQ49[address] [place] [address]Lv# [phone] MCV (RBC) [Entitic vol] 84.2 fL Normal 80.0-99.0 [facility] Comment on above: Order Comment: Campu s: M Performed By: #### L 200.21701 ####[facility] IZMHHATKNO[address] [place], [place] [address]Ph# [phone] MONO ABS 0.50 K/CU MM Normal 0.1-1.1 [facility] Comment on above: Order Comment: Campu s: M Performed By: #### L 200.77002 ####[facility] TLIQTUDZYI64[address] [place], [place] [address]Ph# [phone] Monocytes/100 WBC (Bld) 2.4 % Normal 2-10 [facility] Comment on above: Order Comment: Campu s: M Performed By: #### L 200.68943 ####[facility] SLTMWUQVQN[address] [place] [address]Lg# [phone] NEUTROPHIL ABS 17.60 K/CU MM High 2.0-8.3 [facility] Comment on above: Order Comment: Campu s: M Performed By: #### L 200.93113 ####[facility] AVROCSSQRV[address] [place], [place] [address]Ph# [phone] Neutrophils/100 WBC (Bld) 91.6 % High 45-75 [facility] Comment on above: Order Comment: Campu s: M Performed By: #### L 200.04545 ####[facility] NNGDQYIRWA178[address] [place], [place] [address]Ph# [phone] Nucleated RBC/100 WBC (Bld) [Ratio] 0.0 % Normal Less than 1 [facility] [place] Comment on above: Order Comment: Campu s: M Performed By: #### L 200.09636 ####[facility] RDHFGWXKCS9243 [place], [place] [address]Vh# [phone] Platelet mean volume (Bld) [Entitic vol] 13.2 fL High 9.4-12.4 [facility] Comment on above: Order Comment: Campu s: M Performed By: #### L 200.92798 ####[facility] VZFKKTRPUD1049 [place], [place] [address]Mn# [phone] PLT 187 K/CU MM Normal 150-450 [facility] Comment on above: Order Comment: Campu s: M Result Comment: Accu racy questionable due to platelet clumping, actualplatelet count may be higher than the reported value. Performed By: #### L 200.22890 ####[facility] QLEXVIFCUZ[address] [place] [address]Bw# [phone] PLT EST UNABLE TO QUANTITATE Normal [facility] Comment on above: Order Comment: Campu s: M Performed By: #### L 200.19730 ####[facility] DKNZKIXMGT7[address] [place] [address]Ab# [phone] POIK 1+ Normal [facility] Comment on above: Order Comment: Campu s: M Performed By: #### L 200.85539 ####[facility] STPWQYFTMP4501 [place], [place] [address]Zr# [phone] POLY 1+ Normal [facility] [place] Comment on above: Order Comment: Campu s: M Performed By: #### L 200.04950 ####[facility] SIUUQPCEGF6199 [place], [place] [address]Ha# [phone] RBC 4.55 M/CU MM Normal 3.90-5.30 [facility] Comment on above: Order Comment: Campu s: M Performed By: #### L 200.67042 ####[facility] JBGQRGTJUW0061 [place], [place] [address]Ys# [phone] WBC 19.2 K/CUMM High 4.5-11.0 [facility] Comment on above: Order Comment: Zach richter: Millicent Performed By: #### L 200.42249 ####[facility] FRPCTTTORC5088 [facility] [place], [place] [address]Kp# [phone] CNPDanitza 12-25-2021 CNPN Telephone (FVPRAD) KATHLEEN VILLA ([id number]) 1995 F CHT Date Time Provider Department 12/25/21 VELIA KAUR During your visit today, we recorded the following information about you: Velia Kaur MD 12/25/2021 12:44 PM Signed 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 She is out of infusion sets for [...] every 6 hours as needed. - lancets (Red GuruUCH DELRecognia LANCETS) 30 gauge 10 x daily DX [...] Encounter Status:Closed by VELIA KAUR on 12/25/21 [facility] 12-25-2021 [facility] GFR ESTon 12-25-2021 IF AMER Greater than 60 [facility] Comment on above: Order Comment: Zach s: Millicent Performed By: #### L 500.57076, L500.08720, L500.66605, L500.02823, L500.71792 ####[facility] XVMUQNEGFN4814 [place], [place] [address]Yy# [phone] IF non-AFR AMER Greater than 60 Normal [facility] Comment on above: Order Comment: Campu s: M Performed By: #### L 500.62357, L500.16583, L500.33328, L500.01896, L500.77646 ####[facility] IXZJLGYNWT9269 [place], [place] [address]Hf# [phone] HCGon 12-25-2021 HCG SER RESULT Negative Normal NEGATIVE [facility] Comment on above: Order Comment: Campu s: M Performed By: #### L 500.72396, L500.12091, L500.22107, L500.60887, L500.02256 ####[facility] QNULXOFFAX0232 [place], [place] [address]Ec# [phone] HP.IMS.ADMon 12-25-2021 Admission-H&P Normal [facility] HP.IMS.ADM Normal [facility] LACTATE BLOODon 12-25-2021 LACTATE BLOOD 3.03 MMOL/L High 0.40-2.00 [facility] Comment on above: Order Comment: Campu s: M Performed By: #### L 550.92512, L100.20676 ####[facility] HWONFXMQOL9163 [place], [place] [address]Ln# [phone] LIPASEon 12-25-2021 Lipase [Catalytic activity/Vol] 23 U/L Normal 12-60 [facility] Comment on above: Order Comment: Campu s: M Result Comment: NOTE NEW NORMAL RANGE DUE TO REAGENT CHANGE Performed By: #### L 500.43370, L500.99332, L500.63486, L500.00241, L500.15424 ####[facility] SEVGXZAWCS2506 [place], [place] [address]Dw# [phone] LIVERon 12-25-2021 Albumin [Mass/Vol] 4.2 g/dL Normal 3.2-5.0 [facility] Comment on above: Order Comment: Campu s: M Performed By: #### L 500.82263, L500.41634, L500.89035, L500.71793, L500.09420 ####[facility] JSUSESHGSL3722 [place], [place] [address]Yw# [phone] Albumin/Globulin [Mass ratio] 1.6 {ratio} Normal 0.8-2.0 [facility] Comment on above: Order Comment: Campu s: M Performed By: #### L 500.24507, L500.29884, L500.53353, L500.01146, L500.27890 ####[facility] NLDDSWECYP5944 [place], [place] [address]Jl# [phone] ALK PHOS 92 U/L Normal 45-117 [facility] Comment on above: Order Comment: Campu s: M Performed By: #### L 500.42149, L500.99848, L500.15912, L500.51550, L500.03851 ####[facility] XTPVAKAGFI7682 [place], [place] [address]Sw# [phone] ALT [Catalytic activity/Vol] 13 U/L Normal 13-61 [facility] Comment on above: Order Comment: Campu s: M Result Comment: RESU LTS MAY BE FALSELY DEPRESSED AFTER THE ADMINISTRATION OFSULFASALAZINE AND/OR SULFAPYRIDINE. Performed By: #### L 500.06646, L500.82650, L500.75584, L500.06291, L500.55514 ####[facility] UUDCFNQIJI2939 [place], [place] [address]Ru# [phone] AST [Catalytic activity/Vol] 18 U/L Normal 8-34 [facility] Comment on above: Order Comment: Campu s: M Result Comment: RESU LTS MAY BE FALSELY DEPRESSED AFTER THE ADMINISTRATION OFSULFASALAZINE AND/OR SULFAPYRIDINE. Performed By: #### L 500.62606, L500.37900, L500.36233, L500.70070, L500.06329 ####[facility] LMZWZCUPIB6113 [place], [place] [address]Eh# [phone] BILI DIRECT 0.3 MG/DL Normal 0.00-0.36 [facility] [place] Comment on above: Order Comment: Campu s: M Result Comment: NOTE NEW NORMAL RANGE DUE TO REAGENT CHANGE Performed By: #### L 500.53113, L500.35911, L500.22029, L500.49536, L500.09365 ####[facility] TADWSOVHDJ9301 [place], [place] [address]Ku# [phone] BILI TOTAL 0.90 MG/DL Normal 0.2-1.0 [facility] [place] Comment on above: Order Comment: Campu s: M Performed By: #### L 500.41546, L500.95584, L500.14205, L500.51479, L500.61838 ####[facility] AQCJLNZQWA8982 [place], [place] [address]Xs# [phone] Globulin (S) [Mass/Vol] 2.6 g/dL Normal 2.2-4.2 [facility] [place] Comment on above: Order Comment: Campu s: M Performed By: #### L 500.30300, L500.18052, L500.30184, L500.38054, L500.51496 ####[facility] DYEMYOMCTA7283 [place], [place] [address]Bg# [phone] Protein [Mass/Vol] 6.8 g/dL Normal 6.0-8.5 [facility] [place] Comment on above: Order Comment: Campu s: M Performed By: #### L 500.39504, L500.69193, L500.62232, L500.62519, L500.23661 ####[place] [address] [place], [place] [address]Gb# [phone] WTSNAOTSOB80mn 12-25-2021 SARS-CoV-2 (COVID-19) RNA DANIEL+probe Ql (Unsp spec) Negative Invalid Interpretation Code Negative [facility] Comment [...] performed by PCR. Performed By: #### L 770.76001 ####[facility] KCWGZPMKJZ7266 [place], [place] [address]Zo# [phone] UA COMPLETEon 12-25-2021 Color (U) Straw Normal [facility] Comment on above: Order Comment: Campu s: M Performed By: #### L 600.43071 ####[facility] TMOGMZZJBO[address] [place] [address]Eg# [phone] Glucose (U) [Mass/Vol] 500 mg/dL Normal NORMAL [facility] Comment on above: Order Comment: Campu s: M Performed By: #### L 600.77796 ####[facility] PDMEIKHKOF7204[address] [place] [address] 470[address]Zz# [phone] UA APPEARANCE Clear Normal CLEAR [facility] Comment on above: Order Comment: Campu s: M Performed By: #### L 600.60007 ####[facility] FHZFIIGWJQ[address] [place] [address]Rt# [phone] UA BILIRUBIN Negative Normal NEGATIVE [facility] Comment on above: Order Comment: Campu s: M Performed By: #### L 600.87197 ####[facility] OPWUOVSNQP2605 [place], [place] [address]Gq# [phone] UA BLOOD Negative Normal NEGATIVE [facility] Comment on above: Order Comment: Campu s: M Performed By: #### L 600.34407 ####[facility] TOSGPSXASH6056 [place], [place] [address]Ht# [phone] UA KETONE [address] [facility] Comment on above: Order Comment: Campu s: M Performed By: #### L 600.82365 ####[facility] DBKAAUQLEX39[address] [place] [address]Pk# [phone] UA LK ESTERASE Negative Normal NEGATIVE [facility] Comment on above: Order Comment: Campu s: M Performed By: #### L 600.63378 ####[facility] IXPLQWIKSH[address] [place] [address]Au# [phone] UA NITRITE Negative Normal NEGATIVE [facility] Comment on above: Order Comment: Campu s: M Performed By: #### L 600.66010 ####[address] [address]Tp# [phone] UA PH 7.0 Normal 5-6 [facility] Comment on above: Order Comment: Campu s: M Performed By: #### L 600.02026 ####[address] [address]Yo# [phone] UA PROTEIN Negative Normal NEGATIVE [facility] Comment on above: Order Comment: Campu s: M Performed By: #### L 600.81422 ####[facility] VTLGSBLGJY[address] [place] [address]Lh# [phone] UA SPEC GRAV 1.028 Normal 1.005-1.030 [facility] Comment on above: Order Comment: Campu s: M Performed By: #### L 600.71925 ####[facility] LSXKLWQESD3882[address] [place] [address]Fw# [phone] UA UROBILINOGEN Negative Normal NORMAL [facility] Comment on above: Order Comment: Campu s: M Performed By: #### L 600.58432 ####[facility] TYNKOVKBPI[address] [place] [address]Xa# [phone] VBGPEon 12-25-2021 BASE EXCESS -3.6 MMOL/L Low 0-2 [facility] Comment on above: Order Comment: Campu s: M Performed By: #### L 550.90633, L100.55837 ####[facility] LEAUOGYAMN4984 [place], [place] [address]Oa# [phone] Body temperature 98.6 [degF] Normal [facility] Comment on above: Order Comment: Campu s: M Performed By: #### L 550.77078, L100.04937 ####[address] [address]Ja# [phone] EQUIPMENT UNKNOWN Normal [facility] Comment on above: Order Comment: Campu s: M Performed By: #### L 550.88595, L100.98429 ####[address] [address]Bt# [phone] HCO3 (Bld) [Moles/Vol] 17.0 mmol/L Low 22-26 M [facility] [place] Comment on above: Order Comment: Campu s: M Performed By: #### L 550.40521, L100.44423 ####[address] [address]En# [phone] Hemoglobin (Bld) [Mass/Vol] 14.2 g/dL Low 16.0-22.0 [facility] Comment on above: Order Comment: Campu s: M Performed By: #### L 550.52794, L100.89126 ####[address] [address]Fb# [phone] IONIZED CA 1.13 MMOL/L Normal 1.13-1.32 [facility] Comment on above: Order Comment: Campu s: M Performed By: #### L 550.15122, L100.27430 ####[facility] [id number] [place] [address]Go# [phone] Potassium [Moles/Vol] 4.1 mmol/L Normal 3.5-5.0 [facility] [place] Comment on above: Order Comment: Campu s: M Performed By: #### L 550.98477, L100.62175 ####[facility] [id number] [place] [address]Wz# [phone] S[facility] Comment [facility]: Order Comment: Campu s: M Performed By: #### L 550.91056, L100.03050 ####[address] [address]Ir# [phone] SAMPLE TYPE VENOUS Normal [facility] Comment on above: Order Comment: Campu s: M Performed By: #### L 550.01527, L1.94202 ####[address] [address]Zo# [phone] Sodium [Moles/Vol] 136 mmol/L Normal 136-148 [facility] Comment on above: Order Comment: Campu s: M Performed By: #### L 550.84433, L1.85073 ####[place] [id number]# [phone] VBG CARBOXYHGB 1.4 % [facility] 0-[facility] Comment [facility] above: Order Comment: Campu s: M Performed By: #### L 550.66886, L1.03552 ####[address] [address]Jw# [phone] VBG METHGB 0.3 % Low 0.4-1.5 [facility] Comment on above: Order Comment: Campu s: M Performed By: #### L 550.66267, L1.41396 ####[facility] [id number] [place] [address] 93675Cy# [phone] VBG O2 CAPACITY 19.4 VOL% Normal [facility] Comment on above: Order Comment: Campu s: M Performed By: #### L 550.66321, L100.01579 ####[facility] [id number] [place] [address] 83900Yc# [phone] VBG O2 HG SATUR 65.5 % Normal 40-70 [facility] Comment on above: Order Comment: Campu s: M Performed By: #### L 550.43010, L100.66251 ####[facility] ZTQAKMYBCK5651 [place], [place] [address]Ff# [phone] VBG PCO2 21.5 MMHG Critically low 40-50 [facility] Comment on above: Order Comment: Campu s: M Result Comment: CRIT ICAL VALUE(S) VERIFIED AND HAND DELIVERED TO AND READBACK BY DR. HOFFMAN AT 1835 12/25/21 BY JOSE MARCIAL. Performed By: #### L 550.53129, L100.47107 ####[place] [address] [place], [place] [address]Tl# [phone] VBG PH 7.52 MMHG High 7.31-7.41 [facility] Comment on above: Order Comment: Campu s: M Performed By: #### L 550.33364, L100.69160 ####[facility] CLHJQGFMOP8903 [place], [place] [address]Ug# [phone] VBG PO2 LESS THAN 32.4 Low 35-45 [facility] Comment on above: Order Comment: Campu s: M Result Comment: VALU E IS OUTSIDE OF THE VERIFIED RANGES OF THIS ANALYZER.LIN MARCIAL Performed By: #### L 550.27583, L100.66624 ####[facility] [address]QSE[address] [place] [address] 41618Fq# [phone] DISCH.SUMon 10-25-[address] [facility] GLUCOSE METERon 10-25-2021 Glucose [Mass/Vol] 113 mg/dL Normal 70-115 [facility] Glucose [Mass/Vol] 108 mg/dL Normal 70-115 [facility] BMPon 10-24-2021 Anion gap [Moles/Vol] 12 mmol/L Normal 5-16 [facility] Comment on above: Order Comment: Campu s: M Performed By: #### L 500.73073, L500.40095 ####[facility] BE[address]QBQMGW[address] [place] [address] 03163Qt# [phone] Calcium [Mass/Vol] 8.4 mg/dL Low 8.5-10.5 [facility] Comment on above: Order Comment: Campu s: M Result Comment: NOTE NEW NORMAL RANGE DUE TO REAGENT CHANGE Performed By: #### L 500.52492, L500.23545 ####[facility] IY[address] [place] [address] 08342Gz# [phone] Chloride [Moles/Vol] 103 mmol/L Normal 98-107 [facility] Comment on above: Order Comment: Campu s: M Performed By: #### L 500.29914, L500.05137 ####[facility] HGEMFSMHUP[address] [place] [address] 43968Aw# [phone] CO2 [Moles/Vol] 24.0 mmol/L Normal 21-32 [facility] Comment on above: Order Comment: Campu s: M Performed By: #### L 500.96836, L500.85264 ####[facility] I[address]HUORGDK[address] [place] [address] 43360Wp# [phone] Creatinine [Mass/Vol] 0.69 mg/dL Normal 0.510-0.950 [facility] Comment on above: Order Comment: Campu s: M Result Comment: Cleopatra ents receiving either N-Acetylcysteine (NAC) orMetamizole prior to venipuncture, may have falsely depressedresults. Performed By: #### L 500.70613, L500.31256 ####[facility] PQXISRRDKS[address] [place] [address] 38[address]Yl# [phone] Glucose [Mass/Vol] 113 mg/dL High 70-100 [facility] Comment on above: Order Comment: Campu s: M Result Comment: 70-1 00- Normal Fasting; 100-125 Impaired Fasting; greaterthan 126 on more than one result- Diabetes. ADA guidelines.Results may be falsely elevated after the administration ofSulfapyridine.Results may be falsely depressed after the administration ofSulfasalazine. Performed By: #### L 500.02389, L500.33717 ####[facility] XQPOAWYUJU6033 [place], [place] [address]Mb# [phone] Potassium [Moles/Vol] 3.0 mmol/L Low 3.5-5.1 [facility] Comment on above: Order Comment: Campu s: M Result Comment: NOT A CRITICAL Performed By: #### L 500.00888, L500.55287 ####[address] [address]Gn# [phone] Sodium [Moles/Vol] 139 mmol/L Normal 136-145 [facility] Comment on above: Order Comment: Campu s: M Performed By: #### L 500.88917, L500.84288 ####[address] [address]Re# [phone] Urea nitrogen [Mass/Vol] 10 mg/dL Normal 7-26 [facility] Comment on above: Order Comment: Campu s: M Performed By: #### L 500.84910, L500.45812 ####[facility] Z[address]NPQBQ[address] [place] [address] 14833Rc# [phone] Urea nitrogen/Creatinine [Mass ratio] 15 mg/mg Normal 15-24 [facility] Comment on above: Order Comment: Campu s: M Performed By: #### L 500.52186, L500.84075 ####[facility] BTATWGZWGS[address] [place] [address] 26[address]Kf# [phone] CBC W/DIFFon 10-24-2021 BASO ABS 0.00 K/CU MM Normal 0-0.2 [facility] Comment on above: Order Comment: Campu s: M Performed By: #### L 200.73996 ####[facility] FCYVXZYFES[address] [place] [address] 436[address]Ui# [phone] Basophils/100 WBC (Bld) 0.2 % Normal 0-2 [facility] Comment on above: Order Comment: Campu s: M Performed By: #### L 200.01925 ####[facility] SARSRMYRTP4349 [place], [place] [address]Vs# [phone] EOS ABS 0.00 K/CU MM Normal 0-0.5 [facility] Comment on above: Order Comment: Campu s: M Performed By: #### L 200.70282 ####[address] [address]Pu# [phone] Eosinophils/100 WBC (Bld) 0.0 % Normal 0-5 [facility] Comment on above: Order Comment: Campu s: M Performed By: #### L 200.39347 ####[place] [address]08Ph# [phone] Erythrocyte distribution width (RBC) [Ratio] 13.3 % Normal 11-14.5 [facility] Comment on above: Order Comment: Campu s: M Performed By: #### L 200.86015 ####[facility] RFXSLESFLV[address] [place], [place] [address]894[address]Ph# [phone] Hematocrit (Bld) [Volume fraction] 36.5 % Normal 35.0-47.0 [facility] Comment on above: Order Comment: Campu s: M Performed By: #### L 200.47600 ####[address] [address]Yk# [phone] Hemoglobin (Bld) [Mass/Vol] 12.3 g/dL Normal 11.5-15.5 [facility] Comment on above: Order Comment: Campu s: M Performed By: #### L 200.00224 ####[facility] CGZORLOSSP[address] [place], [place] [address]Ph# [phone] IMMATR GRAN ABS 0.20 K/CU MM Normal Less than 2 [facility] Comment on above: Order Comment: Campu s: M Performed By: #### L 200.30213 ####[facility] YYVWYIMXVF[address] [place], [place] [address]Ph# [phone] IMMATURE GRAN % 1.3 % Normal Less than 2 [facility] Comment on above: Order Comment: Campu s: M Performed By: #### L 200.95876 ####[facility] [id number] [place] [address] 016[address]My# [phone] LYMPH ABS 1.90 K/CU MM Normal 0.9-4.4 [facility] Comment on above: Order Comment: Campu s: M Performed By: #### L 200.80859 ####[place] [address]08Ph# [phone] Lymphocytes/100 WBC (Bld) 14.9 % Low 20-40 [facility] Comment on above: Order Comment: Campu s: M Performed By: #### L 200.81366 ####[address] [address]Yf# [phone] MCHC (RBC) [Mass/Vol] 33.7 g/dL Normal 32.0-36.0 [facility] Comment on above: Order Comment: Campu s: M Performed By: #### L 200.29464 ####[place] [address]0108Ph# [phone] MCV (RBC) [Entitic vol] 84.1 fL Normal 80.0-99.0 [facility] Comment on above: Order Comment: Campu s: M Performed By: #### L 200.00900 ####[facility] [id number] [place] [address] 01433Ct# [phone] MONO ABS 0.70 K/CU MM Normal 0.1-1.1 [facility] Comment on above: Order Comment: Campu s: M Performed By: #### L 200.24591 ####[facility] WNLBTALUCI[address] [place] [address] 27[address]Iz# [phone] Monocytes/100 WBC (Bld) 5.3 % Normal 2-10 [facility] Comment on above: Order Comment: Campu s: M Performed By: #### L 200.79800 ####[facility] FTNUQXDIDJ2291 [place], [place] [address]Rd# [phone] NEUTROPHIL ABS 10.10 K/CU MM High 2.0-8.3 [facility] Comment on above: Order Comment: Campu s: M Performed By: #### L 200.06114 ####[facility] Z[address]FYEGQWTP[address] [place] [address] 713[address]Zl# [phone] Neutrophils/100 WBC (Bld) 78.3 % High 45-75 [facility] Comment on above: Order Comment: Campu s: M Performed By: #### L 200.12210 ####[facility] IRGRWZYRYZ[address] [place], [place] [address]Ph# [phone] Nucleated RBC/100 WBC (Bld) [Ratio] 0.0 % Normal Less than 1 [facility] Comment on above: Order Comment: Campu s: M Performed By: #### L 200.75911 ####[facility] [address]QMUZJDTGF[address] [place] [address] 26[address]Lx# [phone] Platelet mean volume (Bld) [Entitic vol] 11.8 fL Normal 9.4-12.4 [facility] Comment on above: Order Comment: Campu s: M Performed By: #### L 200.80509 ####[facility] HRYDWSWZFL3961 [place], [place] [address]Dr# [phone] PLT 176 K/CU MM Normal 150-450 [facility] Comment on above: Order Comment: Campu s: M Performed By: #### L 200.69305 ####[facility] GMNYBKXXQR2490 [place], [place] [address]Lp# [phone] RBC 4.34 M/CU MM Normal 3.90-5.30 [facility] Comment on above: Order Comment: Campu s: M Performed By: #### L 200.95144 ####[facility] YWXYAWSKQD6294 [place], [place] [address]Gr# [phone] WBC 12.9 K/CUMM High 4.5-11.0 [facility] Comment on above: Order Comment: Campu s: M Performed By: #### L 200.00887 ####[facility] AULYYDWKFW7156 [place], [place] [address]Ye# [phone] GFR ESTon 10-24-2021 IF AMER Greater than 60 Normal [facility] Comment on above: Order Comment: Campu s: M Performed By: #### L 500.51695, L500.42653 ####[facility] RSPUWDYJWO2767 [place], [place] [address]Bl# [phone] IF non-AFR AMER Greater than 60 Normal [facility] Comment on above: Order Comment: Campu s: M Performed By: #### L 500.40520, L500.17734 ####[facility] YJWSSMLLFZ6508 [place], [place] [address]Nw# [phone] GLUCOSE METERon 10-24-2021 Glucose [Mass/Vol] 203 mg/dL High 70-115 [facility] Glucose [Mass/Vol] 115 mg/dL Normal 70-115 [facility] Glucose [Mass/Vol] 103 mg/dL Normal 70-115 [facility] Glucose [Mass/Vol] 112 mg/dL Normal 70-115 [facility] PR[facility] IMSon 10-24-[address] [facility] Progress Note-Hospitalist Normal [facility] PTon 10-24-2021 INR Coag (PPP) [Relative time] 1.05 {INR} Normal 0.9-1.1 [facility] Comment on above: Order Comment: Campu s: M Result Comment: Den mmended PT INR therapeutic range for care home andprophylactic therapy is 2.0 - 3.0. For heart valve andshunt patients the range is 2.5 - 3.5. Performed By: #### L 300.04051 ####[facility] MZRHGOGTVJ7998 [place], [place] [address]Zf# [phone] PTS 11.4 SECONDS Normal 9.5-12.0 [facility] Comment on above: Order Comment: Campu s: M Performed By: #### L 300.22143 ####[facility] NZSBEVBYZE[address] [place] [address] 89[address]Wh# [phone] UA COMPLETEon 10-24-2021 Color (U) Straw Normal [facility] Comment on above: Order Comment: Campu s: M Performed By: #### L 600.17622 ####[address] [address]Nx# [phone] Glucose (U) [Mass/Vol] Negative Normal NORMAL Me [facility] Comment on above: Order Comment: Campu s: M Performed By: #### L 600.08009 ####[address] [address]Uc# [phone] UA APPEARANCE Clear Normal CLEAR [facility] Comment on above: Order Comment: Campu s: M Performed By: #### L 600.03560 ####[facility] XYEKQKOWGM[address] [place] [address] 414[address]Fb# [phone] UA BILIRUBIN Negative Normal NEGATIVE [facility] Comment on above: Order Comment: Campu s: M Performed By: #### L 600.14958 ####[facility] [id number] [place] [address] 465[address]Fh# [phone] UA BLOOD Negative Normal NEGATIVE [facility] Comment on above: Order Comment: Campu s: M Performed By: #### L 600.88705 ####[facility] YMNPLWLHXN[address]26[address] [place] [address] 66[address]Dc# [phone] UA KETONE [address] [facility] Comment on above: Order Comment: Campu s: M Performed By: #### L 600.55643 ####[facility] Y[address]KTDMZQD[address] [place] [address] 016[address]Hd# [phone] UA LK ESTERASE Negative Normal NEGATIVE [facility] Comment on above: Order Comment: Campu s: M Performed By: #### L 600.44362 ####[facility] WOESTOTKXK[address] [place] [address] 754[address]Er# [phone] UA NITRITE Negative Normal NEGATIVE [facility] Comment on above: Order Comment: Campu s: M Performed By: #### L 600.20036 ####[facility] REKDBUAVCI5410 [place], [place] [address]Tm# [phone] UA PH 7.0 Normal - [facility] Comment on above: Order Comment: Campu s: M Performed By: #### L 600.36026 ####[facility] [id number] [place] [address] 19877Zv# [phone] UA PROTEIN Negative Normal NEGATIVE [facility] Comment on above: Order Comment: Campu s: M Performed By: #### L 600.41141 ####[facility] CZIPBDKHHJ[address] [place] [address] 17[address]Zq# [phone] UA SPEC GRAV 1.009 Normal 1.005-1.030 [facility] Comment on above: Order Comment: Campu s: M Performed By: #### L 600.74781 ####[facility] EFTOOIELGN[address] [place] [address] 448[address]Uj# [phone] UA UROBILINOGEN Negative Normal NORMAL [facility] Comment on above: Order Comment: Campu s: M Performed By: #### L 600.00893 ####[facility] PJYXSPEXBN[address] [place] [address] 44341Sn# [phone] BMPon 10-23-2021 Anion gap [Moles/Vol] 12 mmol/L Normal 5-16 [facility] Comment on above: Order Comment: Campu s: M Performed By: #### L 500.07678, L500.59443, L500.56363 ####[facility] R[address]EKGYAZY[address] [place] [address] 26431Ry# [phone] Calcium [Mass/Vol] 8.7 mg/dL Normal 8.5-10.5 [facility] Comment on above: Order Comment: Campu s: M Result Comment: NOTE NEW NORMAL RANGE DUE TO REAGENT CHANGE Performed By: #### L 500.27712, L500.34481, L500.24041 ####[facility] ZZXQZLJAZA5651 [place], [place] [address]Um# [phone] Chloride [Moles/Vol] 107 mmol/L Normal 98-107 [facility] Comment on above: Order Comment: Campu s: M Performed By: #### L 500.56698, L500.60402, L500.18975 ####[facility] MVAJTAKWZY2470 [place], [place] [address]Zq# [phone] CO2 [Moles/Vol] 22.0 mmol/L Normal 21-32 [facility] Comment on above: Order Comment: Campu s: M Performed By: #### L 500.99549, L500.32822, L500.69429 ####[facility] XXMPALOZHO4397 [place], [place] [address]Su# [phone] Creatinine [Mass/Vol] 0.62 mg/dL Normal 0.510-0.950 [facility] Comment on above: Order Comment: Campu s: M Result Comment: Cleopatra ents receiving either N-Acetylcysteine (NAC) orMetamizole prior to venipuncture, may have falsely depressedresults. Performed By: #### L 500.66043, L500.81349, L500.21010 ####[facility] QWPRIKXGXK3037 [place], [place] [address]Vm# [phone] Glucose [Mass/Vol] 208 mg/dL High 70-100 [facility] Comment on above: Order Comment: Campu s: M Result Comment: 70-1 00- Normal Fasting; 100-125 Impaired Fasting; greaterthan 126 on more than one result- Diabetes. ADA guidelines.Results may be falsely elevated after the administration ofSulfapyridine.Results may be falsely depressed after the administration ofSulfasalazine. Performed By: #### L 500.18095, L500.31210, L500.67674 ####[facility] FZJONWPDYB2484 [place], [place] [address]Kk# [phone] Potassium [Moles/Vol] 3.2 mmol/L Low 3.5-5.1 [facility] Comment on above: Order Comment: Campu s: M Performed By: #### L 500.42954, L500.60474, L500.66643 ####[facility] PJCQIPWLWT1838 [place], [place] [address]Bx# [phone] Sodium [Moles/Vol] 141 mmol/L Normal 136-145 [facility] Comment on above: Order Comment: Campu s: M Performed By: #### L 500.76096, L500.13678, L500.67300 ####[facility] XPLQTQGRWJ9[address] [place] [address] 258[address]Xa# [phone] Urea nitrogen [Mass/Vol] 16 mg/dL Normal 7-26 [facility] Comment on above: Order Comment: Campu s: M Performed By: #### L 500.04762, L500.08283, L500.24548 ####[facility] HITJWPFQMU[address] [place] [address] 517[address]Da# [phone] Urea nitrogen/Creatinine [Mass ratio] 26 mg/mg High 15-24 [facility] Comment on above: Order Comment: Campu s: M Performed By: #### L 500.18223, L500.66449, L500.96466 ####[place] [address] [place], [place] [address]Xx# [phone] CBC W/DIFFon 10-23-2021 BASO ABS 0.00 K/CU MM Normal 0-0.2 [facility] Comment on above: Order Comment: Campu s: M Performed By: #### L 200.50856 ####[facility] NAQLYKTNDS[address] [place] [address] 317[address]Th# [phone] Basophils/100 WBC (Bld) 0.2 % Normal 0-2 [facility] Comment on above: Order Comment: Campu s: M Performed By: #### L 200.82213 ####[facility] UTQIXZAWWQ[address] [place] [address] 626[address]Eb# [phone] EOS ABS 0.00 K/CU MM Normal 0-0.5 [facility] Comment on above: Order Comment: Campu s: M Performed By: #### L 200.55197 ####[facility] LLPICTEFMK[address] [place], [place] [address]Ph# [phone] Eosinophils/100 WBC (Bld) 0.0 % Normal 0-5 [facility] Comment on above: Order Comment: Campu s: M Performed By: #### L 200.06921 ####[facility] GAERRGHACD[address] [place], [place] [address]Ph# [phone] Erythrocyte distribution width (RBC) [Ratio] 13.9 % Normal 11-14.5 [facility] Comment on above: Order Comment: Campu s: M Performed By: #### L 200.66361 ####[place] [address]0108Ph# [phone] Hematocrit (Bld) [Volume fraction] 32.9 % Low 35.0-47.0 [facility] Comment on above: Order Comment: Campu s: M Performed By: #### L 200.66722 ####[facility] XBLJKMJRSH[address] [place], [place] [address]Ph# [phone] Hemoglobin (Bld) [Mass/Vol] 11.0 g/dL Low 11.5-15.5 [facility] Comment on above: Order Comment: Campu s: M Performed By: #### L 200.34627 ####[facility] XWSFRTAHGW[address] [place], [place] [address]894[address]Ph# [phone] IMMATR GRAN ABS 0.10 K/CU MM Normal Less than 2 [facility] Comment on above: Order Comment: Campu s: M Performed By: #### L 200.67967 ####[facility] XMINIGEXKR[address] [place], [place] [address]Ph# [phone] IMMATURE GRAN % 0.8 % Normal Less than 2 [facility] Comment on above: Order Comment: Campu s: M Performed By: #### L 200.25226 ####[facility] RWSHISDVML5864 [place], [place] [address]Dt# [phone] LYMPH ABS 1.80 K/CU MM Normal 0.9-4.4 [facility] Comment on above: Order Comment: Campu s: M Performed By: #### L 200.84489 ####[facility] LJNWFQHMRF[address] [place] [address] 54532Zj# [phone] Lymphocytes/100 WBC (Bld) 10.5 % Low 20-40 [facility] Comment on above: Order Comment: Campu s: M Performed By: #### L 200.85607 ####[address] [address]Fa# [phone] MCHC (RBC) [Mass/Vol] 33.4 g/dL Normal 32.0-36.0 [facility] Comment on above: Order Comment: Campu s: M Performed By: #### L 200.38528 ####[facility] CMZNKUTMQT0[address] [place] [address] 350[address]Rn# [phone] MCV (RBC) [Entitic vol] 84.6 fL Normal 80.0-99.0 [facility] Comment on above: Order Comment: Campu s: M Performed By: #### L 200.59021 ####[address] [address]Av# [phone] MONO ABS 0.70 K/CU MM Normal 0.1-1.1 [facility] Comment on above: Order Comment: Campu s: M Performed By: #### L 200.39841 ####[facility] ZXOQINFNTS[address] [place] [address] 088[address]Yj# [phone] Monocytes/100 WBC (Bld) 3.9 % Normal 2-10 [facility] Comment on above: Order Comment: Campu s: M Performed By: #### L 200.35553 ####[facility] QPTUOFWGIH[address] [place] [address] 68[address]Ce# [phone] NEUTROPHIL ABS 14.50 K/CU MM High 2.0-8.3 [facility] Comment on above: Order Comment: Campu s: M Performed By: #### L 200.95908 ####[facility] INDGGBBQDG5609 [place], [place] [address]Sn# [phone] Neutrophils/100 WBC (Bld) 84.6 % High 45-75 [facility] Comment on above: Order Comment: Campu s: M Performed By: #### L 200.62333 ####[facility] YSYYDTOCOU[address] [place] [address] 23[address]Na# [phone] Nucleated RBC/100 WBC (Bld) [Ratio] 0.0 % Normal Less than 1 [facility] Comment on above: Order Comment: Campu s: M Performed By: #### L 200.51633 ####[facility] QQRKKMIZAO[address] [place] [address]Ww# [phone] Platelet mean volume (Bld) [Entitic vol] 12.2 fL Normal 9.4-12.4 [facility] Comment on above: Order Comment: Campu s: M Performed By: #### L 200.70960 ####[facility] QZIQLYEXLF[address] [place] [address] 584[address]Ch# [phone] PLT 145 K/CU MM Low 150-450 [facility] Comment on above: Order Comment: Campu s: M Performed By: #### L 200.56184 ####[facility] HFQMHZSFDO[address] [place] [address] 66[address]Hi# [phone] RBC 3.89 M/CU MM Low 3.90-5.30 [facility] Comment on above: Order Comment: Campu s: M Performed By: #### L 200.89185 ####[facility] [id number] [place], [place] [address]Jp# [phone] WBC 17.1 K/CUMM High 4.5-11.0 [facility] Comment on above: Order Comment: Campu s: M Performed By: #### L 200.30166 ####[facility] [id number] [place], [place] [address]Yc# [phone] GFR ESTon 10-23-2021 IF AMER Greater than 60 Normal [facility] Comment on above: Order Comment: Campu s: M Performed By: #### L 500.39548, L500.11016, L500.32405 ####[facility] [id number] [place], [place] [address]Ke# [phone] IF non-AFR AMER Greater than 60 Normal [facility] Comment on above: Order Comment: Campu s: M Performed By: #### L 500.66659, L500.49625, L500.23436 ####[facility] [id number] [place], [place] [address]Db# [phone] GLUCOSE METERon 10-23-2021 Glucose [Mass/Vol] 142 mg/dL High 70-115 [facility] Glucose [Mass/Vol] 127 mg/dL High 70-115 [facility] Glucose [Mass/Vol] 172 mg/dL High 70-115 [facility] MAGNESIUMon 10-23-2021 Magnesium [Mass/Vol] 1.7 mg/dL Normal 1.6-2.6 [facility] Comment on above: Order Comment: Campu s: M Performed By: #### L 500.34943, L500.88344, L500.02572 ####[facility] [id number] [place], [place] [address]Pm# [phone] PROG IMSon 10-23-[address] [facility] Progress Note-Hospitalist Normal [facility] BMPon 10-22-2021 Anion gap [Moles/Vol] 10 mmol/L Normal 5-16 [facility] Comment on above: Order Comment: Campu s: M Performed By: #### L 500.06521, L500.18774 ####[facility] [id number] [place], [place] [address]Xk# [phone] Calcium [Mass/Vol] 8.9 mg/dL Normal 8.5-10.5 [facility] Comment on above: Order Comment: Campu s: M Result Comment: NOTE NEW NORMAL RANGE DUE TO REAGENT CHANGE Performed By: #### L 500.60941, L500.23743 ####[facility] LMDESQETEQ8871 [place], [place] [address]Cc# [phone] Chloride [Moles/Vol] 109 mmol/L High 98-107 [facility] Comment on above: Order Comment: Campu s: M Performed By: #### L 500.55270, L500.97040 ####[facility] JJHKRNGGWT5007 [place], [place] [address]Jv# [phone] CO2 [Moles/Vol] 20.0 mmol/L Low 21-32 [facility] Comment on above: Order Comment: Campu s: M Performed By: #### L 500.44549, L5.59585 ####[facility] JETSLZPDGA2219 [place], [place] [address]Rm# [phone] Creatinine [Mass/Vol] 0.63 mg/dL Normal 0.510-0.950 [facility] Comment on above: Order Comment: Campu s: M Result Comment: Cleopatra ents receiving either N-Acetylcysteine (NAC) orMetamizole prior to venipuncture, may have falsely depressedresults. Performed By: #### L 500.09984, L500.68437 ####[facility] TJRTPQKMTR3175 [place], [place] [address]Mu# [phone] Glucose [Mass/Vol] 237 mg/dL High 70-100 [facility] Comment on above: Order Comment: Campu s: M Result Comment: 70-1 00- Normal Fasting; 100-125 Impaired Fasting; greaterthan 126 on more than one result- Diabetes. ADA guidelines.Results may be falsely elevated after the administration ofSulfapyridine.Results may be falsely depressed after the administration ofSulfasalazine. Performed By: #### L 500.12013, L500.78941 ####[facility] LSQZECEFSS2313 [place], [place] [address]Rc# [phone] Potassium [Moles/Vol] 3.8 mmol/L Normal 3.5-5.1 [facility] Comment on above: Order Comment: Campu s: M Performed By: #### L 500.99951, L500.12660 ####[facility] KTWTVJGEDT0211 [place], [place] [address]Tu# [phone] Sodium [Moles/Vol] 140 mmol/L Normal 136-145 [facility] Comment on above: Order Comment: Campu s: M Performed By: #### L 500.61289, L500.72914 ####[facility] BMHJTEWPXE[address] [place] [address]Xy# [phone] Urea nitrogen [Mass/Vol] 15 mg/dL Normal 7-26 [facility] Comment on above: Order Comment: Campu s: M Performed By: #### L 500.04840, L500.44419 ####[facility] EQFGVOFEZP89[address] [place] [address]Pe# [phone] Urea nitrogen/Creatinine [Mass ratio] 24 mg/mg Normal 15-24 [facility] Comment on above: Order Comment: Campu s: M Performed By: #### L 500.63907, L500.04732 ####[facility] XRLPPPZTGA36[address] [place] [address]Qv# [phone] Urea nitrogen/Creatinine [Mass ratio] 25 mg/mg High 15-24 [facility] Comment on above: Order Comment: Campu s: M Performed By: #### L 500.27092, L500.12137, L500.20262, L500.37515 ####[facility] TTKQQWQFOM8911 [place], [place] [address]Wi# [phone] Anion gap [Moles/Vol] 12 mmol/L Normal 5-16 [facility] Comment on above: Order Comment: Campu s: M Performed By: #### L 500.71743, L500.04462, L500.03571, L500.48642 ####[facility] YJCMFBVLCS0431 [place], [place] [address]Xl# [phone] Calcium [Mass/Vol] 10.1 mg/dL Normal 8.5-10.5 [facility] Comment on above: Order Comment: Campu s: M Result Comment: NOTE NEW NORMAL RANGE DUE TO REAGENT CHANGE Performed By: #### L 500.11448, L500.70397, L500.56337, L500.77297 ####[facility] OFTIQXDIDX3768 [place], [place] [address]Di# [phone] Chloride [Moles/Vol] 107 mmol/L Normal 98-107 [facility] Comment on above: Order Comment: Campu s: M Performed By: #### L 500.37817, L500.77524, L500.71618, L500.79849 ####[facility] EVMMPQDLOB5290 [place], [place] [address]Xd# [phone] CO2 [Moles/Vol] 20.0 mmol/L Low 21-32 [facility] Comment on above: Order Comment: Campu s: M Performed By: #### L 500.57282, L500.80873, L500.46604, L500.99579 ####[facility] SUADKAXTMO5519 [place], [place] [address]Tn# [phone] Creatinine [Mass/Vol] 0.64 mg/dL Normal 0.510-0.950 [facility] Comment on above: Order Comment: Campu s: M Result Comment: Cleopatra ents receiving either N-Acetylcysteine (NAC) orMetamizole prior to venipuncture, may have falsely depressedresults. Performed By: #### L 500.46641, L500.99514, L500.65871, L500.83266 ####[facility] [address]UAHQHFST[address] [place] [address]Gh# [phone] Glucose [Mass/Vol] 309 mg/dL High 70-100 [facility] Comment on above: Order Comment: Campu s: M Result Comment: 70-1 00- Normal Fasting; 100-125 Impaired Fasting; greaterthan 126 on more than one result- Diabetes. ADA guidelines.Results may be falsely elevated after the administration ofSulfapyridine.Results may be falsely depressed after the administration ofSulfasalazine. Performed By: #### L 500.15207, L500.54928, L500.72442, L500.07566 ####[facility] NORIAJDCMZ7867 [place], [place] [address]Jd# [phone] Potassium [Moles/Vol] 3.9 mmol/L Normal 3.5-5.1 [facility] Comment on above: Order Comment: Campu s: M Performed By: #### L 500.06724, L500.46187, L500.09236, L500.47908 ####[facility] EHWUMMWKWB9341 [place], [place] [address]Xu# [phone] Sodium [Moles/Vol] 139 mmol/L Normal 136-145 [facility] Comment on above: Order Comment: Campu s: M Performed By: #### L 500.02445, L500.22972, L500.02423, L500.79521 ####[facility] OXLTARDEBD6750 [place], [place] [address]Vj# [phone] Urea nitrogen [Mass/Vol] 16 mg/dL Normal 7-26 [facility] Comment on above: Order Comment: Campu s: M Performed By: #### L 500.78482, L500.71731, L500.28511, L500.73768 ####[facility] ISEMVNOANT4782 [place], [place] [address]Bp# [phone] CBC W/DIFFon 10-22-2021 BASO ABS 0.10 K/CU MM Normal 0-0.2 [facility] Comment on above: Order Comment: Campu s: M Performed By: #### L 200.22240 ####[facility] CRISXMYAKS[address]42[address] [place] [address]Dv# [phone] Basophils/100 WBC (Bld) 0.2 % Normal 0-2 [facility] Comment on above: Order Comment: Campu s: M Performed By: #### L 200.58867 ####[facility] CZNRWATOYK4202 [place], [place] [address]Ok# [phone] EOS ABS 0.00 K/CU MM Normal 0-0.5 [facility] Comment on above: Order Comment: Campu s: M Performed By: #### L 200.43564 ####[address] [address]Mx# [phone] Eosinophils/100 WBC (Bld) 0.0 % Normal 0-5 [facility] Comment on above: Order Comment: Campu s: M Performed By: #### L 200.19734 ####[address] [address]Nw# [phone] Erythrocyte distribution width (RBC) [Ratio] 13.5 % Normal 11-14.5 [facility] Comment on above: Order Comment: Campu s: M Performed By: #### L 200.70845 ####[address] [address]Um# [phone] Hematocrit (Bld) [Volume fraction] 39.5 % Normal 35.0-47.0 [facility] Comment on above: Order Comment: Campu s: M Performed By: #### L 200.69614 ####[address] [address]Ja# [phone] Hemoglobin (Bld) [Mass/Vol] 13.4 g/dL Normal 11.5-15.5 [facility] Comment on above: Order Comment: Campu s: M Performed By: #### L 200.08404 ####[facility] NJATEGZTJY1924[address] [place] [address]Lf# [phone] IMMATR GRAN ABS 0.20 K/CU MM Normal Less than 2 [facility] Comment on above: Order Comment: Campu s: M Performed By: #### L 200.92429 ####[facility] ZVZAKHTVBY[address] [place] [address]Vg# [phone] IMMATURE GRAN % 1.0 % Normal Less than 2 [facility] Comment on above: Order Comment: Campu s: M Performed By: #### L 200.61593 ####[facility] XZJKGQYQEJ1802 [place], [place] [address]Jd# [phone] LYMPH ABS 1.30 K/CU MM Normal 0.9-4.4 [facility] Comment on above: Order Comment: Campu s: M Performed By: #### L 200.89013 ####[address] [address]Af# [phone] Lymphocytes/100 WBC (Bld) 5.6 % Low 20-40 [facility] Comment on above: Order Comment: Campu s: M Performed By: #### L 200.64623 ####[address] [address]Bw# [phone] MCHC (RBC) [Mass/Vol] 33.9 g/dL Normal 32.0-36.0 [facility] Comment on above: Order Comment: Campu s: M Performed By: #### L 200.31906 ####[facility] PBONGIYUGQ[address] [place] [address]Uv# [phone] MCV (RBC) [Entitic vol] 84.4 fL Normal 80.0-99.0 [facility] Comment on above: Order Comment: Campu s: M Performed By: #### L 200.38035 ####[facility] UFUMKADVVO99[address] [place] [address]Jo# [phone] MONO ABS 0.60 K/CU MM Normal 0.1-1.1 [facility] Comment on above: Order Comment: Campu s: M Performed By: #### L 200.46099 ####[facility] FYPDVJIDUN8[address] [place] [address]Mj# [phone] Monocytes/100 WBC (Bld) 2.6 % Normal 2-10 [facility] Comment on above: Order Comment: Campu s: M Performed By: #### L 200.46929 ####[facility] KTGQKAYYZN7839 [place], [place] [address]Lc# [phone] NEUTROPHIL ABS 20.70 K/CU MM High 2.0-8.3 [facility] Comment on above: Order Comment: Campu s: M Performed By: #### L 200.48670 ####[facility] AQDIEWHBTT8671 [place], [place] [address]Qp# [phone] Neutrophils/100 WBC (Bld) 90.6 % High 45-75 [facility] Comment on above: Order Comment: Campu s: M Performed By: #### L 200.02497 ####[facility] GZIAVKQFPO9[address] [place] [address]Zy# [phone] Nucleated RBC/100 WBC (Bld) [Ratio] 0.0 % Normal Less than 1 [facility] Comment on above: Order Comment: Campu s: M Performed By: #### L 200.68979 ####[facility] MQMUFGOARB2404[address] [place] [address]Qy# [phone] Platelet mean volume (Bld) [Entitic vol] 13.2 fL High 9.4-12.4 [facility] Comment on above: Order Comment: Campu s: M Performed By: #### L 200.47705 ####[facility] OBDGDLLIXD0311[address] [place] [address]Wi# [phone] PLT 164 K/CU MM Normal 150-450 [facility] Comment on above: Order Comment: Campu s: M Result Comment: Conf irmed by slide estimate. Performed By: #### L 200.41888 ####[facility] TOSFENLXUP[address] [place] [address]Pm# [phone] PLT EST ADEQUATE Normal [facility] Comment on above: Order Comment: Campu s: M Performed By: #### L 200.78128 ####[facility] VJTGBTPDUW[address] [place] [address]Hk# [phone] POIK 1+ Normal [facility] Comment on above: Order Comment: Campu s: M Performed By: #### L 200.90849 ####[facility] JHSYXUGDOP8932 [place], [place] [address]Wd# [phone] POLY 1+ Normal [facility] Comment on above: Order Comment: Campu s: M Performed By: #### L 200.85691 ####[facility] INBJNHPCLN3564 [place], [place] [address]Yh# [phone] RBC 4.68 M/CU MM Normal 3.90-5.30 [facility] Comment on above: Order Comment: Campu s: M Performed By: #### L 200.59720 ####[facility] GMNUVUMBLP2931 [place], [place] [address]Xa# [phone] WBC 22.9 K/CUMM High 4.5-11.0 [facility] Comment on above: Order Comment: Campu s: M Performed By: #### L 200.63481 ####[facility] PXDJCPJITM[address] [place] [address]Jz# [phone] Stacie 10-22-2021 EMERGENCY PHYSICIAN REPORT This is a preliminary report only, as the practitioner review and authentication has not occurred. Normal [facility] Normal [facility] GFR ESTon 10-22-2021 IF AMER Greater than 60 Normal [facility] Comment on above: Order Comment: Campu s: M Performed By: #### L 500.17588, L500.87440 ####[facility] EVLBETMPGJ9896 [place], [place] [address]Cd# [phone] IF non-AFR AMER Greater than 60 [facility] Comment on above: Order Comment: Campu s: M Performed By: #### L 500.28654, L500.44412 ####[facility] AXFMBPTQCB1939 [place], [place] [address]Vr# [phone] IF AMER Greater than 60 [facility] Comment on above: Order Comment: Campu s: M Performed By: #### L 500.99802, L500.79484, L500.44852, L500.07007 ####[facility] PTRCUSVENZ1689 [place], [place] [address]Ip# [phone] IF non-AFR AMER Greater than 60 Normal [facility] Comment on above: Order Comment: Campu s: M Performed By: #### L 500.87624, L500.38792, L500.72148, L500.78026 ####[facility] GKUELDEMEM5451 [place], [place] [address]Ww# [phone] GLUCOSE METERon 10-22-2021 Glucose [Mass/Vol] 145 mg/dL High 70-115 [facility] Glucose [Mass/Vol] 255 mg/dL High 70-115 [facility] Glucose [Mass/Vol] 232 mg/dL High 70-115 [facility] Glucose [Mass/Vol] 269 mg/dL High 70-115 [facility] Glucose [Mass/Vol] 249 mg/dL High 70-115 [facility] HPon 10-22-2021 HP Normal [facility] LIPASEon 10-22-2021 Lipase [Catalytic activity/Vol] 18 U/L Normal 12-60 [facility] Comment on above: Order Comment: Campu s: M Result Comment: NOTE NEW NORMAL RANGE DUE TO REAGENT CHANGE Performed By: #### L 500.26035, L500.13733, L500.06695, L500.25077 ####[facility] MEQAXJGTYH5821 [place], [place] [address]Hf# [phone] LIVERon 10-22-2021 Globulin (S) [Mass/Vol] 2.8 g/dL Normal 2.2-4.2 [facility] Comment on above: Order Comment: Campu s: M Performed By: #### L 500.24329, L500.26165, L500.44224, L500.42409 ####[facility] CPTYZJTRJL4308 [place], [place] [address]Cf# [phone] Albumin/Globulin [Mass ratio] 1.54 {ratio} Normal 0.8-2.0 [facility] Comment on above: Order Comment: Campu s: M Performed By: #### L 500.47351, L500.58659, L500.12997, L500.00678 ####[facility] JTGFBBWKDK8121 [place], [place] [address]Bh# [phone] Albumin [Mass/Vol] 4.3 g/dL Normal 3.2-5.0 [facility] Comment on above: Order Comment: Campu s: M Performed By: #### L 500.27723, L500.31944, L500.86141, L500.13126 ####[facility] YMPBHVIXJK9883 [place], [place] [address]Uk# [phone] ALK PHOS 100 U/L Normal 45-117 [facility] Comment on above: Order Comment: Campu s: M Performed By: #### L 500.15080, L500.24301, L500.50700, L500.14389 ####[facility] BGQWKXMNNO4926 [place], [place] [address]Qv# [phone] ALT [Catalytic activity/Vol] 9 U/L Low 13-61 [facility] Comment on above: Order Comment: Campu s: M Result Comment: RESU LTS MAY BE FALSELY DEPRESSED AFTER THE ADMINISTRATION OFSULFASALAZINE AND/OR SULFAPYRIDINE. Performed By: #### L 500.56602, L500.23445, L500.54146, L500.99708 ####[facility] HLYPKMROPZ2470 [place], [place] [address]Hj# [phone] AST [Catalytic activity/Vol] 12 U/L Normal 8-34 [facility] Comment on above: Order Comment: Campu s: M Result Comment: RESU LTS MAY BE FALSELY DEPRESSED AFTER THE ADMINISTRATION OFSULFASALAZINE AND/OR SULFAPYRIDINE. Performed By: #### L 500.16534, L500.11847, L500.19134, L500.11892 ####[facility] HSBEQYYNMH0433 [place], [place] [address]Ry# [phone] BILI DIRECT 0.3 MG/DL Normal 0.00-0.36 [facility] Comment on above: Order Comment: Campu s: M Result Comment: NOTE NEW NORMAL RANGE DUE TO REAGENT CHANGE Performed By: #### L 500.48222, L500.11944, L500.82803, L500.74334 ####[facility] NITWMCHKYC2615 [place], [place] [address]Yn# [phone] BILI TOTAL 0.80 MG/DL Normal 0.2-1.0 [facility] Comment on above: Order Comment: Campu s: M Performed By: #### L 500.67750, L500.20804, L500.69577, L500.19578 ####[facility] RMSMJMHWZB1634 [place], [place] [address]Qq# [phone] Protein [Mass/Vol] 7.1 g/dL Normal 6.0-8.5 [facility] Comment on above: Order Comment: Campu s: M Performed By: #### L 500.47361, L500.53636, L500.74148, L500.83885 ####[facility] TTSPZIQUDU0211 [place], [place] [address]Bz# [phone] [id number] 10-22-2021 SARS-CoV-2 (COVID-19) RNA DANIEL+probe Ql (Unsp spec) Negative Invalid Interpretation Code Negative [facility] Comment [...] performed by PCR. Performed By: #### L 770.99865 ####[facility] IEUVYTEGSF2807 [place], [place] [address]Df# [phone] UA COMPLETEon 10-22-2021 UA UROBILINOGEN Negative Normal NORMAL [facility] Comment on above: Order Comment: Campu s: M Performed By: #### L 600.09719 ####[facility] LOVAAOIHMI6043 [place], [place] [address]Sf# [phone] Color (U) YELLOW Normal [facility] Comment on above: Order Comment: Campu s: M Performed By: #### L 600.18381 ####[facility] W[address]MGULQTVT[address] [place] [address] 209[address]Zn# [phone] Glucose (U) [Mass/Vol] mg/dL Normal NORMAL [facility] Comment on above: Order Comment: Campu s: M Performed By: #### L 600.77699 ####[facility] XCJKMYOFYH[address] [place] [address]Sa# [phone] Mucus Ql (Urine sed) TRACE Normal NEGATIVE [facility] Comment on above: Order Comment: Campu s: M Performed By: #### L 600.44057 ####[facility] HTXFJWKNST16[address] [place] [address]Vn# [phone] SQUAMOUS EPIS 2 EPI/HPF Normal 0-5 [facility] Comment on above: Order Comment: Campu s: M Performed By: #### L 600.57275 ####[facility] UBNEOVZRFA[address] [place] [address]Pa# [phone] UA APPEARANCE CLEAR Normal CLEAR [facility] Comment on above: Order Comment: Campu s: M Performed By: #### L 600.48690 ####[facility] VWQGKZHQTI8[address] [place] [address] 14[address]Vs# [phone] UA BACTERIA NONE Normal NONE [facility] Comment on above: Order Comment: Campu s: M Performed By: #### L 600.33931 ####[facility] FEHTMHXPLI[address] [place] [address] 79[address]Vo# [phone] UA BILIRUBIN Negative Normal NEGATIVE [facility] Comment on above: Order Comment: Campu s: M Performed By: #### L 600.45596 ####[facility] JYYWYXNBNR6406 [place], [place] [address]Pv# [phone] UA BLOOD SMALL Normal NEGATIVE [facility] Comment on above: Order Comment: Campu s: M Performed By: #### L 600.29849 ####[facility] CHPEDFHWXS7739 [place], [place] [address]Fz# [phone] UA KETONE [address] [facility] Comment on above: Order Comment: Campu s: M Performed By: #### L 600.70872 ####[facility] OUNHSJBIQE1996 [place], [place] [address]Ja# [phone] UA LK ESTERASE N Normal NEGATIVE [facility] Comment on above: Order Comment: Campu s: M Performed By: #### L 600.17259 ####[facility] QXBWHZVBPC[address] [place] [address] 00[address]Ok# [phone] UA NITRITE Negative Normal NEGATIVE [facility] Comment on above: Order Comment: Campu s: M Performed By: #### L 600.64597 ####[facility] YABIGNPFXB[address] [place] [address] 46[address]Ky# [phone] UA PH 6.0 Normal 5-6 [facility] Comment on above: Order Comment: Campu s: M Performed By: #### L 600.13744 ####[facility] DMKCQSQPKC45[address] [place] [address] 18[address]Ou# [phone] UA PROTEIN [address] [facility] Comment on above: Order Comment: Campu s: M Performed By: #### L 600.55065 ####[facility] WYINJMPALW[address] [place] [address] 285[address]Pn# [phone] UA RBC NONE Low 0-3 [facility] Comment on above: Order Comment: Campu s: M Performed By: #### L 600.47486 ####[facility] NYYBTEHXXQ[address] [place] [address] 28[address]Zr# [phone] UA SPEC GRAV 1.023 Normal 1.005-1.030 [facility] Comment on above: Order Comment: Campu s: M Performed By: #### L 600.85678 ####[facility] JUZLDULIOX3008 [place], [place] [address]Yd# [phone] UA WBC 1 WBC/HPF Normal 0-5 [facility] Comment on above: Order Comment: Campu s: M Performed By: #### L 600.77881 ####[facility] [address]ZTPCYFY[address] [place] [address] 19[address]Iu# [phone] VBG PHon 10-22-2021 VBG PH 7.49 MMHG High 7.31-7.41 [facility] Comment on above: Order Comment: Campu s: M Performed By: #### L 100.55254 ####[facility] P[address]NAFRTLP[address] [place] [address] 86[address]Gi# [phone] BLOOD CULTUREon 06-09-2021 Bacteria identified Cx Nom (Bld) NO GROWTH AFTER [address] [facility] Comment on above: Order Comment: Campu s: M Performed By: #### M 050.61056 ####[facility] ZZJXAEIXNW[address] [place] [address] 174[address]Ho# [phone] Bacteria identified Cx Nom (Bld) NO GROWTH AFTER 5 DAYS [facility] Comment on above: Order Comment: Campu s: M Performed By: #### M 050.33413 ####[facility] NSXLDIOTKG[address] [place] [address]Ud# [phone] GLUCOSE METERon 06-07-2021 Glucose [Mass/Vol] 44 mg/dL Critically low 70-115 [facility] BLOOD CULTUREon 06-05-2021 Bacteria identified Cx Nom (Bld) NO GROWTH AFTER [address] [facility] Comment on above: Order Comment: Campu s: M Performed By: #### M 050.50364 ####[facility] MRVWYJGYAH[address] [place] [address] 07[address]Kt# [phone] DISCH.SUMon 06-05-[address] [facility] GLUCOSE METERon 06-05-2021 Glucose [Mass/Vol] 104 mg/dL Normal 70-115 [facility] Glucose [Mass/Vol] 83 mg/dL Normal 70-115 [facility] Glucose [Mass/Vol] 105 mg/dL Normal 70-115 [facility] Glucose [Mass/Vol] 177 mg/dL High 70-115 [facility] Glucose [Mass/Vol] 61 mg/dL Low 70-115 [facility] PR[facility].ENDOon 06-05-[address] [facility] Progress Note-Endocrinology Normal [facility] BCID PCRon 06-04-2021 BC ACINETOBACTE Not detected Normal NOT DETECTD [facility] Comment on above: Performed By: #### L [id number] ####[facility] [id number] [place], [place] [address]Bu# [phone] BC BETA STREP A Not detected Normal NOT DETECTD [facility] Comment on above: Performed By: #### L [id number] ####[facility] [id number] [place], [place] [address]Ut# [phone] BC BETA STREP B Not detected Normal NOT DETECTD [facility] Comment on above: Performed By: #### L [id number] ####[facility] [id number] [place], [place] [address]Cu# [phone] BC C ALBICANS Not detected Normal NOT DETECTD [facility] Comment on above: Performed By: #### L [id number] ####[facility] [id number] [place], [place] [address]Ex# [phone] BC C GLABRATA Not detected Normal NOT DETECTD [facility] Comment on above: Performed By: #### L [id number] ####[facility] [id number] [place], [place] [address]Rk# [phone] BC C KRUSEI Not detected Normal NOT DETECTD [facility] Comment on above: Performed By: #### L [id number] ####[facility] [id number] [place], [place] [address]Wq# [phone] BC C PARAPSILOS Not detected Normal [facility] DETECTD [facility]: Performed By: #### L [id number] ####[facility] [id number] [place], [place] [address]Rf# [phone] BC C TROPICALIS Not detected Normal NOT DETECTD [facility] Comment [facility] above: Performed By: #### L [id number] ####[facility] [id number] [place], [place] [address]Zj# [phone] BC E COLI Not detected Normal NOT DETECTD [facility] Comment on above: Performed By: #### L [id number] ####[facility] [id number] [place], [place] [address]Ie# [phone] BC ENTER CLOACA Not detected Normal NOT DETECTD [facility] Comment [facility] above: Performed By: #### L 770.48172 ####[facility] [id number] [place] [address]Rf# [phone] BC ENTEROCOCCUS Not detected Normal NOT DETECTD [facility] Comment on above: Performed By: #### L 770.90329 ####[facility] GSXVAYHHOG7357 [place], [place] [address]Mi# [phone] BC H.INFLUENZA Not detected Normal NOT DETECTD [facility] Comment on above: Performed By: #### L 770.36832 ####[facility] ALYTXYJHIH6115 [place], [place] [address]Rc# [phone] BC KLEB OXYTOCA Not detected Normal NOT DETECTD [facility] Comment on above: Performed By: #### L 770.12220 ####[facility] YESYUZFGHS5257 [place], [place] [address]Be# [phone] BC KLEB PNEUMO Not detected Normal NOT DETECTD [facility] Comment on above: Performed By: #### L 770.08655 ####[facility] FLTXDHMXBJ9186 [place], [place] [address]Sv# [phone] BC KPC Not detected Normal NOT DETECTD [facility] Comment on above: Performed By: #### L 770.87632 ####[facility] PZIFMKXUHN7083 [place], [place] [address]Hi# [phone] BC LISTERIA Not detected Normal NOT DETECTD [facility] Comment on above: Performed By: #### L 770.80245 ####[facility] YKJTXSRJKC6290 [place], [place] [address]Di# [phone] BC MEC A Not detected Normal NOT DETECTD [facility] Comment on above: Performed By: #### L 770.23446 ####[facility] PVGZGFGBCR5130 [place], [place] [address]Ir# [phone] BC N MENINGITID Not detected Normal NOT DETECTD [facility] Comment on above: Performed By: #### L 770.95039 ####[facility] JUSEVKJEVL2125 [place], [place] [address]Qa# [phone] BC PROTEUS SP. Not detected Normal NOT DETECTD [facility] Comment on above: Performed By: #### L 770.98089 ####[facility] SXWXNAMZGY6515 [place], [place] [address]Lg# [phone] BC PSEUDO AERUG Not detected Normal NOT DETECTD [facility] Comment on above: Performed By: #### L 770.47075 ####[facility] BADOPHVPLE1636 [place], [place] [address]Ma# [phone] BC SERRATIA MAR Not detected Normal NOT DETECTD [facility] Comment on above: Performed By: #### L 770.10952 ####[facility] OUZYALAGUX6806 [place], [place] [address]Av# [phone] BC STAPH AUREUS Not detected Normal NOT DETECTD [facility] Comment on above: Performed By: #### L 770.97617 ####[facility] MTZHXLWOFD0295 [place], [place] [address]Rb# [phone] BC STAPH SPE. Not detected Normal NOT DETECTD [facility] Comment on above: Performed By: #### L 770.23341 ####[facility] XQFWLOKQON0950 [place], [place] [address]Gb# [phone] BC STREP PNEUMO Not detected Normal NOT DETECTD [facility] Comment on above: Performed By: #### L 770.01644 ####[facility] TNWTUJEFRO8126 [place], [place] [address]Gr# [phone] BC STREPTOCOCCU Not detected Normal NOT DETECTD [facility] Comment on above: Performed By: #### L 770.87217 ####[facility] NICEGJMTGT0349 [place], [place] [address]Gs# [phone] BC VAN A/B Not detected Normal NOT DETECTD [facility] Comment on above: Performed By: #### L 770.54035 ####[facility] AWFSCEUDBV8576 [place], [place] [address]Nm# [phone] ENTEROBACEAE SP Not detected Normal NOT DETECTD [facility] Comment on above: Performed By: #### L 770.62840 ####[facility] XKKAHCEKDX2789 [place], [place] [address]Zb# [phone] BLOOD CULTUREon 06-04-2021 Bacteria identified Cx Nom (Bld) INITIAL POSITIVE BLOOD CULTURE RESULTS CALLED TO MICHELLE RN/8M AND READ BACK BY AT 201206/02/21 BY NANI CARLISLE ORGANISM 1: MICROCOCCUS SP./RELATED GENERA ID TO FOLLOW NOT VIABLE FOR SENSITIVITY Normal [facility] Comment on above: Order Comment: Zach s: M Performed By: #### M 050.17916 ####[facility] FYOFMWSWAJ2966 [place], [place] [address]Vn# [phone] GLUCOSE METERon 06-04-2021 Glucose [Mass/Vol] 161 mg/dL High 70-115 [facility] Glucose [Mass/Vol] 79 mg/dL Normal 70-115 [facility] Glucose [Mass/Vol] 236 mg/dL High 70-115 [facility] Glucose [Mass/Vol] 273 mg/dL High 70-115 [facility] Glucose [Mass/Vol] 221 mg/dL High 70-115 [facility] Glucose [Mass/Vol] 305 mg/dL High 70-115 [facility] PR[facility] IMSon 06-04-[address] [facility] Progress Note-Hospitalist Normal [facility] PROG.ENDOon 06-04-[address] [facility] Progress Note-Endocrinology Normal [facility] BMPon 06-03-2021 Anion gap [Moles/Vol] 9 mmol/L Normal 5-16 [facility] Comment on above: Order Comment: Campu s: MMinimal Draw: Y Performed By: #### L 500.25616, L500.22024, L500.83034 ####[facility] FPEVTHWVOQ3026 [place], [place] [address]Mh# [phone] Calcium [Mass/Vol] 8.5 mg/dL Normal 8.5-10.5 [facility] Comment on above: Order Comment: Campu s: MMinimal Draw: Y Result Comment: NOTE NEW NORMAL RANGE DUE TO REAGENT CHANGE Performed By: #### L 500.42920, L500.11647, L500.06150 ####[facility] YFDXGIUUZP0355 [place], [place] [address]Ca# [phone] Chloride [Moles/Vol] 109 mmol/L High 98-107 [facility] Comment on above: Order Comment: Campu s: MMinimal Draw: Y Performed By: #### L 500.68869, L500.08270, L500.28977 ####[facility] WELZSZIOEM2694 [place], [place] [address]Ty# [phone] CO2 [Moles/Vol] 23.0 mmol/L Normal 21-32 [facility] Comment on above: Order Comment: Campu s: MMinimal Draw: Y Performed By: #### L 500.91188, L500.80283, L500.07329 ####[facility] JZZDVVNXKG9729 [place], [place] [address]Ni# [phone] Creatinine [Mass/Vol] 0.70 mg/dL Normal 0.510-0.950 [facility] [place] Comment on above: Order Comment: Campu s: MMinimal Draw: Y Result Comment: Cleopatra ents receiving either N-Acetylcysteine (NAC) orMetamizole prior to venipuncture, may have falsely depressedresults. Performed By: #### L 500.39719, L500.48374, L500.88371 ####[facility] EUGQOIQRBR2979 [place], [place] [address]Vr# [phone] Glucose [Mass/Vol] 303 mg/dL High 70-100 [facility] Comment on above: Order Comment: Campu s: MMinimal Draw: Y Result Comment: 70-1 00- Normal Fasting; 100-125 Impaired Fasting; greaterthan 126 on more than one result- Diabetes. ADA guidelines.Results may be falsely elevated after the administration ofSulfapyridine.Results may be falsely depressed after the administration ofSulfasalazine. Performed By: #### L 500.87309, L500.03219, L500.18546 ####[facility] HULMQKYCBI2902 [place], [place] [address]Qp# [phone] Potassium [Moles/Vol] 4.4 mmol/L Normal 3.5-5.1 [facility] Comment on above: Order Comment: Campu s: MMinimal Draw: Y Result Comment: Slig ht Hemolysis, Result may be affected. Performed By: #### L 500.49821, L500.55810, L500.37456 ####[facility] ASEIZKXZSX2579 [place], [place] [address]Gi# [phone] Sodium [Moles/Vol] 141 mmol/L Normal 136-145 [facility] Comment on above: Order Comment: Campu s: MMinimal Draw: Y Performed By: #### L 500.04868, L500.85963, L500.80990 ####[facility] HTBXWNKASN8830 [place], [place] [address]Qr# [phone] Urea nitrogen [Mass/Vol] 16 mg/dL Normal 7-26 [facility] Comment on above: Order Comment: Campu s: MMinimal Draw: Y Performed By: #### L 500.20611, L500.42904, L500.23160 ####[facility] EMHZCOGRWK9471 [place], [place] [address]Df# [phone] Urea nitrogen/Creatinine [Mass ratio] 23 mg/mg Normal 15-24 [facility] Comment on above: Order Comment: Campu s: MMinimal Draw: Y Performed By: #### L 500.99012, L500.57232, L500.20704 ####[facility] ZIVSXSDVTR9618 [place], [place] [address]Tn# [phone] CBC W/DIFFon 06-03-2021 BASO ABS 0.00 K/CU MM Normal 0-0.2 [facility] Comment on above: Order Comment: Campu s: MMinimal Draw: Y Performed By: #### L 200.66907 ####[facility] GWCMXBJNIY[address] [place] [address]Pe# [phone] Basophils/100 WBC (Bld) 0.2 % Normal 0-2 [facility] Comment on above: Order Comment: Campu s: MMinimal Draw: Y Performed By: #### L 200.37320 ####[facility] SVEVMZWLVH76[address] [place] [address]Dt# [phone] EOS ABS 0.00 K/CU MM Normal 0-0.5 [facility] Comment on above: Order Comment: Campu s: MMinimal Draw: Y Performed By: #### L 200.12161 ####[facility] VUQWWCQOZD[address] [place] [address]Jt# [phone] Eosinophils/100 WBC (Bld) 0.3 % Normal 0-5 [facility] Comment on above: Order Comment: Campu s: MMinimal Draw: Y Performed By: #### L 200.32802 ####[facility] HGNVGDDKYV4[address] [place] [address]Sf# [phone] Erythrocyte distribution width (RBC) [Ratio] 15.1 % High 11-14.5 [facility] Comment on above: Order Comment: Campu s: MMinimal Draw: Y Performed By: #### L 200.52160 ####[facility] SRXKUXQLVV4926 [place], [place] [address]Pm# [phone] Hematocrit (Bld) [Volume fraction] 29.3 % Low 35.0-47.0 [facility] Comment on above: Order Comment: Campu s: MMinimal Draw: Y Performed By: #### L 200.17057 ####[place] [address]01[address]Ph# [phone] Hemoglobin (Bld) [Mass/Vol] 9.4 g/dL Low 11.5-15.5 [facility] Comment on above: Order Comment: Campu s: MMinimal Draw: Y Result Comment: Repe ated and verified. Performed By: #### L 200.77471 ####[facility] FYEHKKNIQO[address] [place], [place] [address]Ph# [phone] IMMATR GRAN ABS 0.10 K/CU MM Normal Less than 2 [facility] Comment on above: Order Comment: Campu s: MMinimal Draw: Y Performed By: #### L 200.45304 ####[facility] MFIALGEUNM[address] [place], [place] [address]Ph# [phone] IMMATURE GRAN % 0.8 % Normal Less than 2 [facility] Comment on above: Order Comment: Campu s: MMinimal Draw: Y Performed By: #### L 200.48177 ####[facility] JEEFDOLVZZ6[address] [place], [place] [address]Ph# [phone] LYMPH ABS 2.90 K/CU MM Normal 0.9-4.4 [facility] Comment on above: Order Comment: Campu s: MMinimal Draw: Y Performed By: #### L 200.32774 ####[facility] BWHVOUADDW3[address] [place], [place] [address]Ph# [phone] Lymphocytes/100 WBC (Bld) 25.7 % Normal 20-40 [facility] Comment on above: Order Comment: Campu s: MMinimal Draw: Y Performed By: #### L 200.46716 ####[facility] YVEQIICWCY2344 [place], [place] [address]Iw# [phone] MCHC (RBC) [Mass/Vol] 32.1 g/dL Normal 32.0-36.0 [facility] Comment on above: Order Comment: Campu s: MMinimal Draw: Y Performed By: #### L 200.44575 ####[facility] IJDIGGTNVU[address] [place], [place] [address]Ph# [phone] MCV (RBC) [Entitic vol] 87.5 fL Normal 80.0-99.0 [facility] Comment on above: Order Comment: Campu s: MMinimal Draw: Y Performed By: #### L 200.51634 ####[facility] QJDEHWHEAA[address] [place], [place] [address]Ph# [phone] MONO ABS 0.50 K/CU MM Normal 0.1-1.1 [facility] Comment on above: Order Comment: Campu s: MMinimal Draw: Y Performed By: #### L 200.32321 ####[facility] NLSCOUZCEN[address] [place], [place] [address]Ph# [phone] Monocytes/100 WBC (Bld) 4.3 % Normal 2-10 [facility] Comment on above: Order Comment: Campu s: MMinimal Draw: Y Performed By: #### L 200.34663 ####[facility] MJZRRLPQTG[address] [place], [place] [address]Ph# [phone] NEUTROPHIL ABS 7.70 K/CU MM Normal 2.0-8.3 [facility] Comment on above: Order Comment: Campu s: MMinimal Draw: Y Performed By: #### L 200.79537 ####[facility] XROCXHJMAX253[address] [place], [place] [address]Ph# [phone] Neutrophils/100 WBC (Bld) 68.7 % Normal 45-75 [facility] Comment on above: Order Comment: Campu s: MMinimal Draw: Y Performed By: #### L 200.22547 ####[facility] FCBGIAKMWO6188 [place], [place] [address]Uc# [phone] Nucleated RBC/100 WBC (Bld) [Ratio] 0.0 % Normal Less than 1 [facility] Comment on above: Order Comment: Campu s: MMinimal Draw: Y Performed By: #### L 200.39876 ####[facility] UDXKVHBGFS6938 [place], [place] [address]Gn# [phone] Platelet mean volume (Bld) [Entitic vol] 11.6 fL Normal 9.4-12.4 [facility] Comment on above: Order Comment: Campu s: MMinimal Draw: Y Performed By: #### L 200.91822 ####[facility] XWDRSTIQAP8740 [place], [place] [address]Kk# [phone] PLT 166 K/CU MM Normal 150-450 [facility] Comment on above: Order Comment: Campu s: MMinimal Draw: Y Performed By: #### L 200.43490 ####[facility] LWLVZWGCYK8339 [place], [place] [address]Ov# [phone] RBC 3.35 M/CU MM Low 3.90-5.30 [facility] Comment on above: Order Comment: Campu s: MMinimal Draw: Y Performed By: #### L 200.43813 ####[facility] LQLFBMRFHN5425 [place], [place] [address]Mo# [phone] WBC 11.3 K/CUMM High 4.5-11.0 [facility] Comment on above: Order Comment: Campu s: MMinimal Draw: Y Performed By: #### L 200.04538 ####[facility] DYWAZFAKGU49[address] [place] [address]Ux# [phone] GFR ESTon 06-03-2021 IF AMER Greater than 60 Normal [facility] Comment on above: Order Comment: Campu s: MMinimal Draw: Y Performed By: #### L 500.91804, L500.72327, L500.20161 ####[facility] BQITMIEZOL8845 [place], [place] [address]Ic# [phone] IF non-AFR AMER Greater than 60 Normal [facility] Comment on above: Order Comment: Campu s: MMinimal Draw: Y Performed By: #### L 500.14664, L500.91361, L500.15834 ####[facility] FFKKBDAFXT2094 [place], [place] [address]Dx# [phone] GLUCOSE METERon 06-03-2021 Glucose [Mass/Vol] 227 mg/dL High 70-115 [facility] Glucose [Mass/Vol] 182 mg/dL High 70-115 [facility] Glucose [Mass/Vol] 299 mg/dL High 70-115 [facility] PROG IMSon 06-03-[address] [facility] Progress Note-Hospitalist Normal [facility] PROG.ENDOon 06-03-[address] [facility] Progress Note-Endocrinology Normal [facility] TSHon 06-03-2021 TSH 6.118 UIU/ML High 0.358-3.740 [facility] Comment on above: Order Comment: Campu s: MMinimal Draw: Y Result Comment: 3rd generation ultra sensitive TSH Performed By: #### L 500.66792, L500.17368, L500.93152 ####[facility] XCVRQGZNPN3258 [place], [place] [address]Me# [phone] CONS.ENDOon 06-02-2021 CONS.ENDO Normal [facility] CONSULTATION-ENDOCRINO LOGY Normal [facility] GLUCOSE METERon 06-02-2021 Glucose [Mass/Vol] 372 mg/dL High 70-115 [facility] Glucose [Mass/Vol] 255 mg/dL High 70-115 [facility] Glucose [Mass/Vol] 210 mg/dL High 70-115 [facility] Glucose [Mass/Vol] 205 mg/dL High 70-115 [facility] PROG IMSon 06-02-[address] [facility] Progress Note-Hospitalist Normal [facility] BMPon 06-01-2021 Anion gap [Moles/Vol] 23 mmol/L High 5-16 [facility] Comment on above: Order Comment: Campu s: M Performed By: #### L 500.87282, L500.92203 ####[facility] ZCXJPLDRVL4729 [place], [place] [address]Kz# [phone] Calcium [Mass/Vol] 9.4 mg/dL Normal 8.5-10.5 [facility] Comment on above: Order Comment: Campu s: M Result Comment: NOTE NEW NORMAL RANGE DUE TO REAGENT CHANGE Performed By: #### L 500.53054, L500.64257 ####[facility] PAUBKLRLED5123 [place], [place] [address]Gh# [phone] Chloride [Moles/Vol] 103 mmol/L Normal 98-107 [facility] Comment on above: Order Comment: Campu s: M Performed By: #### L 500.74218, L500.30851 ####[facility] FAFJTWXJNL5491 [place], [place] [address]Ac# [phone] CO2 [Moles/Vol] 11.0 mmol/L Low 21-32 [facility] Comment on above: Order Comment: Campu s: M Result Comment: Delt a check reviewed Performed By: #### L 500.75594, L500.38297 ####[facility] YVJRHONLGM8541 [place], [place] [address]Lt# [phone] Creatinine [Mass/Vol] 0.71 mg/dL Normal 0.510-0.950 [facility] Comment on above: Order Comment: Campu s: M Result Comment: Cleopatra ents receiving either N-Acetylcysteine (NAC) orMetamizole prior to venipuncture, may have falsely depressedresults. Performed By: #### L 500.96603, L500.00756 ####[facility] OSDUIECYTB1392 [place], [place] [address]Uc# [phone] Glucose [Mass/Vol] 447 mg/dL High 70-100 [facility] Comment on above: Order Comment: Campu s: M Result Comment: 70-1 00- Normal Fasting; 100-125 Impaired Fasting; greaterthan 126 on more than one result- Diabetes. ADA guidelines.Results may be falsely elevated after the administration ofSulfapyridine.Results may be falsely depressed after the administration ofSulfasalazine. Performed By: #### L 500.30903, L500.66706 ####[facility] NDNNIUUJRE3310 [place], [place] [address]Np# [phone] Potassium [Moles/Vol] 5.2 mmol/L High 3.5-5.1 [facility] Comment on above: Order Comment: Campu s: M Result Comment: Slig ht Hemolysis, Result may be affected. Performed By: #### L 500.27593, L500.40374 ####[facility] QLURPIZCTX0211 [place], [place] [address]Qr# [phone] Sodium [Moles/Vol] 137 mmol/L Normal 136-145 [facility] Comment on above: Order Comment: Campu s: M Performed By: #### L 500.40932, L500.65639 ####[facility] TSDZIVZZJX2929 [place], [place] [address]Wv# [phone] Urea nitrogen [Mass/Vol] 20 mg/dL Normal 7-26 [facility] Comment on above: Order Comment: Campu s: M Result Comment: Slig ht Hemolysis, Result may be affected. Performed By: #### L 500.52248, L500.24122 ####[facility] KQYVMOKMAS2078 [place], [place] [address]Ib# [phone] Urea nitrogen/Creatinine [Mass ratio] 28 mg/mg High 15-24 [facility] Comment on above: Order Comment: Campu s: M Performed By: #### L 500.59556, L500.86008 ####[facility] EBHMBOZQOY9482 [place], [place] [address]Zq# [phone] Stacie 06-01-2021 EMERGENCY PHYSICIAN REPORT This is a preliminary report only, as the practitioner review and authentication has not occurred. Normal [facility] ER Normal [facility] GFR ESTon 06-01-2021 IF AMER Greater than 60 [facility] Comment on above: Order Comment: Campu s: M Performed By: #### L 500.54769, L500.07499 ####[facility] OZJPOQSYHN4615 [place], [place] [address]Cs# [phone] IF non-AFR AMER Greater than 60 [facility] Comment on above: Order Comment: Campu s: M Performed By: #### L 500.72486, L500.87666 ####[facility] OUMRNTRMPM5887 [place], [place] [address]Ut# [phone] GLUCOSE METERon 06-01-2021 Glucose [Mass/Vol] 384 mg/dL High 70-115 [facility] Glucose [Mass/Vol] 322 mg/dL High 70-115 [facility] Glucose [Mass/Vol] 550 mg/dL Critically high 70-115 [facility] GLUCOSE METER > 600 Critically high 70-115 [facility] Glucose [Mass/Vol] 450 mg/dL High 70-115 [facility] HP.IMS.ADMon 06-01-2021 Admission-H&P Normal [facility] HP.IMS.ADM [facility] LACTIC ACIDon 06-01-2021 Lactate [Moles/Vol] 3.82 mmol/L High 0.40-2.00 [facility] Comment on above: Performed By: #### L 550.13297 ####[facility] GNHXYUCRKO8611 [place], [place] [address]Kb# [phone] PROCAL Aon 06-01-2021 PROCAL A 2.89 NG/ML High 0-0.50 [facility] Comment on above: Order Comment: Zach s: [...] for sepsis based on results obtained fromthe [employer] platform vs the tribrs Vidas platform(previous).NOTE NEW NORMAL RANGE DUE TO REAGENT CHANGE Performed By: #### L 550.07567 ####[facility] NSTZMGUTEX[address] [place] [address]Is# [phone] PROG IMSon 06-01-[address] [facility] Progress Note-Hospitalist Normal [facility] UR DRUG ABUSEon 06-01-2021 UR AMPH Negative Normal Qbtlma=6650 [facility] Comment on above: Performed By: #### L 600.56580 ####[facility] PRNFNMDKLU8995 [place], [place] [address]Qu# [phone] UR JARON Negative Normal Rbmmjz=154 [facility] Comment on above: Performed By: #### L 600.09512 ####[facility] PGSXOYQCRX2265 [place], [place] [address]Cv# [phone] UR TAMRA Negative Normal Suyzss=798 [facility] Comment on above: Performed By: #### L 600.23818 ####[facility] KWNGESBZTP6645 [place], [place] [address]Ir# [phone] UR MONTY/THC Positive Normal Cutoff=50 [facility] Comment on above: Performed By: #### L 600.68307 ####[facility] [address]HUPMMHKV[address] [place] [address]Dn# [phone] UR ALISHA Negative Normal Tiqckk=993 [facility] Comment on above: Performed By: #### L 600.14028 ####[facility] ZAKOZGXLDJ1980 [place], [place] [address]Tt# [phone] UR OPIAT Positive Normal Atzygo=578 [facility] Comment on above: Performed By: #### L 600.60994 ####[facility] PSOVKIUFYP0373 [place], [place] [address]Br# [phone] UR PCP Negative Normal Cutoff=25 [facility] Comment on above: Performed By: #### L 600.22504 ####[address] [address]Ya# [phone] [facility] Comment on above: Result Comment: [employer] results are qualitative, providing apreliminary analytical result. A positive result for anassay should be confirmed by another nonimmunological,reference method. A negative result indicates that theassay material is either not present, or present at levelsbelow the cutoff threshold for the analytical method range(AMR) validation. Performed By: #### L 600.00269 ####[facility] TMSPRNDSWC[address] [place] [address]Ka# [phone] ABGPon 05-31-2021 ABG BE -8.6 MML/L Low -2.0-2.0 [facility] Comment on above: Order Comment: Zach s: M Performed By: #### L 100.69088 ####[facility] TDDXQVLCXA9985 [place], [place] [address]Nu# [phone] ABG COHBA 0.4 % Normal 0-10 [facility] Comment on above: Order Comment: Zach s: M Performed By: #### L 100.00990 ####[facility] [id number] [place], [place] [address]Zj# [phone] ABG MET 0.3 % Low 0.4-1.5 [facility] Comment on above: Order Comment: Campu s: M Performed By: #### L 100.87182 ####[facility] [id number] [place], [place] [address]Jm# [phone] ABG O2 CAPACITY 17.9 mL/dL [facility]: Order Comment: Campu s: M Performed By: #### L 100.83997 ####[facility] [id number] [place], [place] [address]Dl# [phone] ABG O2 CONTENT 17.2 mL/dL Normal 15.7-21.6 [facility] [place] Comment on above: Order Comment: Campu s: M Performed By: #### L 100.96482 ####[facility] [id number] [place] [address]Cw# [phone] ABG O2HB SAT 93.9 % Normal 90-100 [facility] Comment [facility]: Order Comment: Campu s: M Performed By: #### L 100.20832 ####[facility] [id number] [place], [place] [address]Eq# [phone] ABG PCO2 34.2 MMHG Low 35-45 [facility] [place] Comment on above: Order Comment: Campu s: M Performed By: #### L 100.96462 ####[facility] [id number] [place] [place], [place] [address]Sa# [phone] ABG PH 7.31 Low 7.35-7.45 [facility] Comment on above: Order Comment: Campu s: M Performed By: #### L 100.30785 ####[facility] FAUQIMOZZC5881 [place], [place] [address]Pk# [phone] ABG PO2 85.7 MMHG Normal 80-100 [facility] [place] Comment on above: Order Comment: Campu s: M Performed By: #### L 100.30802 ####[facility] BWMTKBIOPV8503 [place], [place] [address]Sj# [phone] ABG REDUCED HGB 5.4 % High 0-5 [facility] [place] Comment on above: Order Comment: Campu s: M Performed By: #### L 100.27358 ####[facility] QGFRCTIXNW0452 [place], [place] [address]Mw# [phone] GEM TEST Positive Normal [facility] Comment on above: Order Comment: Campu s: M Performed By: #### L 100.73863 ####[facility] AKETKSBGVK5966 [place], [place] [address]Yx# [phone] Body temperature 98.6 [degF] Normal [facility] Comment on above: Order Comment: Campu s: M Performed By: #### L 100.80927 ####[facility] IKURBHYJVG[address] [place] [address]Xa# [phone] EQUIPMENT ROOM AIR Normal [facility] Comment on above: Order Comment: Campu s: M Performed By: #### L 100.63526 ####[address] [address]Id# [phone] FIO2 21 % Normal [facility] Comment on above: Order Comment: Campu s: M Performed By: #### L 100.63775 ####[facility] HIQLNJSAYN[address] [place] [address]Hn# [phone] HCO3 (Bld) [Moles/Vol] 16.8 mmol/L Low 22-26 [facility] Comment on above: Order Comment: Campu s: M Performed By: #### L 100.95598 ####[facility] ADIHVXRUNR[address] [place] [address]Kn# [phone] Hemoglobin (Bld) [Mass/Vol] 13.0 g/dL Normal 10-16 [facility] Comment on above: Order Comment: Campu s: M Performed By: #### L 100.80301 ####[facility] SYGPAQJZID5158 [place], [place] [address]Xm# [phone] SAMPLE SITE L RADIAL Normal [facility] Comment on above: Order Comment: Campu s: M Performed By: #### L 100.39860 ####[facility] HEHKOINIZL8664 [place], [place] [address]Oe# [phone] SAMPLE TYPE ARTERIAL Normal [facility] Comment on above: Order Comment: Campu s: M Performed By: #### L 100.18869 ####[facility] EUABIICTRY[address] [place] [address]Uc# [phone] ABGPEGLAon 05-31-2021 ABG BE -10.1 MML/L Low -2.0-2.0 [facility] Comment on above: Order Comment: Campu s: M Performed By: #### L 100.03937 ####[address] [address]Mx# [phone] ABG COHBA 0.4 % Normal 0-10 [facility] Comment on above: Order Comment: Campu s: M Performed By: #### L 100.76636 ####[address] [address]Uf# [phone] ABG GLU 317.0 MG/DL High 60-80 [facility] Comment on above: Order Comment: Campu s: M Performed By: #### L 100.77976 ####[address] [address]Ap# [phone] ABG MET 0.3 % Low 0.4-1.5 [facility] Comment on above: Order Comment: Campu s: M Performed By: #### L 100.23765 ####[facility] XBCLGEDDEM[address] [place] [address]Kv# [phone] ABG O2 CAPACITY 15.6 mL/dL Normal [facility] Comment on above: Order Comment: Campu s: M Performed By: #### L 100.86671 ####[facility] HJCLQKHDFK[address] [place] [address]Ko# [phone] ABG O2 CONTENT 11.1 mL/dL Low 15.7-21.6 [facility] Comment on above: Order Comment: Campu s: M Performed By: #### L 100.81533 ####[facility] PIMWIYHGZW7805 [place], [place] [address]Lo# [phone] ABG O2HB SAT 69.7 % Critically low 90-100 [facility] Comment on above: Order Comment: Campu s: M Performed By: #### L 100.80240 ####[facility] JISFJFZTLQ6599 [place], [place] [address]Bu# [phone] ABG PCO2 19.0 MMHG Critically low 35-45 [facility] Comment on above: Order Comment: Campu s: M Result Comment: CRIT ICAL VALUE(S) VERIFIED AND HAND DELIVERED TO AND READBACK BY DR CORTES AT 1829 05/31/21 BY ADAM CHOE Performed By: #### L 100.55998 ####[facility] YYCHGNFUAP5118 [place], [place] [address]Iq# [phone] ABG PH 7.43 Normal 7.35-7.45 [facility] Comment on above: Order Comment: Campu s: M Performed By: #### L 100.30834 ####[facility] GTXJIBNQHE6291 [place], [place] [address]Or# [phone] ABG PO2 37.4 MMHG Critically low 80-100 [facility] Comment on above: Order Comment: Campu s: M Performed By: #### L 100.66620 ####[facility] EJPTYGGHXY1631 [place], [place] [address]Id# [phone] ABG REDUCED HGB 29.6 % Critically high 0-5 [facility] Comment on above: Order Comment: Campu s: M Performed By: #### L 100.01116 ####[facility] VTLAMANRSY3636 [place], [place] [address]Wa# [phone] GEM TEST N/A Normal [facility] Comment on above: Order Comment: Campu s: M Performed By: #### L 100.93036 ####[facility] VHRLGKDAUM9769 [place], [place] [address]We# [phone] Body temperature 98.6 [degF] Normal [facility] Comment on above: Order Comment: Campu s: M Performed By: #### L 100.66637 ####[facility] VCTJUDGBAQ2434 [place], [place] [address]Es# [phone] EQUIPMENT ROOM AIR Normal [facility] Comment on above: Order Comment: Campu s: M Performed By: #### L 100.89143 ####[facility] WZEFEERSKF[address] [place] [address]Gf# [phone] HCO3 (Bld) [Moles/Vol] 12.2 mmol/L Low 22-26 M [facility] Comment on above: Order Comment: Campu s: M Performed By: #### L 100.66519 ####[address] [address]Ox# [phone] Hemoglobin (Bld) [Mass/Vol] 11.3 g/dL Normal 10-16 [facility] Comment on above: Order Comment: Campu s: M Performed By: #### L 100.94634 ####[facility] HKBOLIPEGV8[address] [place] [address]At# [phone] IONIZED CA 0.95 MMOL/L Low 1.13-1.32 [facility] Comment on above: Order Comment: Campu s: M Performed By: #### L 100.15835 ####[facility] RQTNKSEXHE64[address] [place] [address]Ow# [phone] LACTATE BLOOD 2.01 MMOL/L High 0.40-2.00 [facility] Comment on above: Order Comment: Campu s: M Performed By: #### L 100.05281 ####[facility] EBTPAPPMZR[address]40[address] [place] [address]Eb# [phone] Potassium [Moles/Vol] 2.7 mmol/L Critically low 3.5-5.0 [facility] Comment on above: Order Comment: Campu s: M Performed By: #### L 100.07379 ####[facility] CYHNOSTPWJ4768 [place], [place] [address]As# [phone] RESP[address] RATE [address] [facility] Comment on above: Order Comment: Campu s: M Performed By: #### L 100.10583 ####[facility] MQFVLSKMAA9414 [place], [place] [address]Zf# [phone] SAMPLE SITE R BRACHIAL Normal [facility] Comment on above: Order Comment: Campu s: M Performed By: #### L 100.61458 ####[facility] HCRUFQATID7[address] [place] [address]Lc# [phone] SAMPLE TYPE ARTERIAL Normal [facility] Comment on above: Order Comment: Campu s: M Performed By: #### L 100.29216 ####[facility] XPRTOHZFRE[address] [place] [address]Ur# [phone] Sodium [Moles/Vol] 140 mmol/L Normal 136-148 [facility] Comment on above: Order Comment: Campu s: M Performed By: #### L 100.30239 ####[facility] FXCTOXTSGY[address] [place] [address]Pa# [phone] BMPon 05-31-2021 Anion gap [Moles/Vol] 16 mmol/L Normal 5-16 [facility] Comment on above: Order Comment: Campu s: M Performed By: #### L 500.51041, L500.87094, L500.17574, L500.05561 ####[facility] IZIZLJGETV8373 [place], [place] [address]Wq# [phone] Calcium [Mass/Vol] 9.9 mg/dL Normal 8.5-10.5 [facility] Comment on above: Order Comment: Campu s: M Result Comment: NOTE NEW NORMAL RANGE DUE TO REAGENT CHANGE Performed By: #### L 500.32899, L500.39888, L500.49910, L500.90508 ####[facility] YXWWHQNURC6207 [place], [place] [address]Fm# [phone] Chloride [Moles/Vol] 105 mmol/L Normal 98-107 [facility] [place] Comment on above: Order Comment: Benjiu s: M Performed By: #### L 500.78648, L500.39069, L500.91799, L500.96921 ####[facility] OUIJFKBOMV3197 [place], [place] [address]Rs# [phone] CO2 [Moles/Vol] 16.0 mmol/L Low 21-32 [facility] Comment on above: Order Comment: Benjiu s: M Performed By: #### L 500.41266, L500.12119, L500.05942, L500.49855 ####[facility] GWILEMYUPG6932 [place], [place] [address]Wf# [phone] Creatinine [Mass/Vol] 0.63 mg/dL Normal 0.510-0.950 [facility] Comment on above: Order Comment: Benjiu s: M Result Comment: Cleopatra ents receiving either N-Acetylcysteine (NAC) orMetamizole prior to venipuncture, may have falsely depressedresults. Performed By: #### L 500.52731, L500.56151, L500.66221, L500.18215 ####[facility] YLDSUYNQWG7400 [place], [place] [address]Kl# [phone] Glucose [Mass/Vol] 422 mg/dL High 70-100 [facility] Comment on above: Order Comment: Benjiu s: M Result Comment: 70-1 00- Normal Fasting; 100-125 Impaired Fasting; greaterthan 126 on more than one result- Diabetes. ADA guidelines.Results may be falsely elevated after the administration ofSulfapyridine.Results may be falsely depressed after the administration ofSulfasalazine. Performed By: #### L 500.98884, L500.03007, L500.58534, L500.17560 ####[facility] CHGZJZBZTM4310 [place], [place] [address]Ms# [phone] Potassium [Moles/Vol] 4.4 mmol/L Normal 3.5-5.1 [facility] [place] Comment on above: Order Comment: Campu s: M Result Comment: Slig ht Hemolysis, Result may be affected. Performed By: #### L 500.06237, L500.18852, L500.35950, L500.25324 ####[facility] LHAHXNJCBW5185 [place], [place] [address]Oe# [phone] Sodium [Moles/Vol] 137 mmol/L Normal 136-145 [facility] [place] Comment on above: Order Comment: Campu s: M Performed By: #### L 500.20977, L500.21637, L500.91190, L500.26947 ####[facility] VYWBCUVZEC1004 [place], [place] [address]Wn# [phone] Urea nitrogen [Mass/Vol] 17 mg/dL Normal 7-26 [facility] Comment on above: Order Comment: Campu s: M Performed By: #### L 500.15044, L500.67739, L500.09391, L500.86754 ####[facility] ZPUVVOMMGG7676 [place], [place] [address]Wt# [phone] Urea nitrogen/Creatinine [Mass ratio] 27 mg/mg High 15-24 [facility] Comment on above: Order Comment: Campu s: M Performed By: #### L 500.53382, L500.50565, L500.25665, L500.49872 ####[facility] OAGDKIVEWR6679 [place], [place] [address]Td# [phone] CBC W/DIFFon 05-31-2021 BASO ABS 0.00 K/CU MM Normal 0-0.2 [facility] Comment on above: Order Comment: Campu s: M Performed By: #### L 200.32385 ####[facility] QINBVHXVHI[address] [place] [address]Vj# [phone] Basophils/100 WBC (Bld) 0.2 % Normal 0-2 [facility] Comment on above: Order Comment: Campu s: M Performed By: #### L 200.18392 ####[facility] DMUUFAGKUG2404 [place], [place] [address]Ho# [phone] EOS ABS 0.00 K/CU MM Normal 0-0.5 [facility] Comment on above: Order Comment: Campu s: M Performed By: #### L 200.58052 ####[facility] ZOQMHGUWJB[address] [place] [address]On# [phone] Eosinophils/100 WBC (Bld) 0.0 % Normal 0-5 [facility] Comment on above: Order Comment: Campu s: M Performed By: #### L 200.88498 ####[place] [address]Ph# [phone] Erythrocyte distribution width (RBC) [Ratio] 14.1 % Normal 11-14.5 [facility] Comment on above: Order Comment: Campu s: M Performed By: #### L 200.87725 ####[facility] [address]DLRVXPX[address] [place], [place] [address]Ph# [phone] Hematocrit (Bld) [Volume fraction] 39.5 % Normal 35.0-47.0 [facility] Comment on above: Order Comment: Campu s: M Performed By: #### L 200.17643 ####[facility] IHXXKSXZZD[address] [place] [address]Nt# [phone] Hemoglobin (Bld) [Mass/Vol] 13.1 g/dL Normal 11.5-15.5 [facility] Comment on above: Order Comment: Campu s: M Performed By: #### L 200.86419 ####[facility] JPSVSMSVNT[address] [place], [place] [address]Ph# [phone] IMMATR GRAN ABS 0.20 K/CU MM Normal Less than 2 [facility] Comment on above: Order Comment: Campu s: M Performed By: #### L 200.59339 ####[facility] XRXMLKFWFN[address] [place], [place] [address]Ph# [phone] IMMATURE GRAN % 0.8 % Normal Less than 2 [facility] Comment on above: Order Comment: Campu s: M Performed By: #### L 200.48596 ####[facility] XTGEBLRCNM8[address] [place] [address]Ty# [phone] LYMPH ABS 1.10 K/CU MM Normal 0.9-4.4 [facility] Comment on above: Order Comment: Campu s: M Performed By: #### L 200.53942 ####[facility] IOAKWQCLDO79[address] [place], [place] [address]Ph# [phone] Lymphocytes/100 WBC (Bld) 4.7 % Low 20-40 [facility] Comment on above: Order Comment: Campu s: M Performed By: #### L 200.04925 ####[address] [address]Mm# [phone] MCHC (RBC) [Mass/Vol] 33.2 g/dL Normal 32.0-36.0 [facility] Comment on above: Order Comment: Campu s: M Performed By: #### L 200.52297 ####[place] [address]Ph# [phone] MCV (RBC) [Entitic vol] 84.9 fL Normal 80.0-99.0 [facility] Comment on above: Order Comment: Campu s: M Performed By: #### L 200.39771 ####[facility] THGVVMXXRJ[address] [place], [place] [address]Ph# [phone] MONO ABS 0.40 K/CU MM Normal 0.1-1.1 [facility] Comment on above: Order Comment: Campu s: M Performed By: #### L 200.03097 ####[facility] DKZMHVYCLU17[address] [place] [address]Zx# [phone] Monocytes/100 WBC (Bld) 1.8 % Low 2-10 [facility] Comment on above: Order Comment: Campu s: M Performed By: #### L 200.01999 ####[facility] [place], [place] [address]Vc# [phone] NEUTROPHIL ABS 20.90 K/CU MM High 2.0-8.3 [facility] Comment on above: Order Comment: Campu s: M Performed By: #### L 200.52374 ####[facility] KJWEZUZVOO9284 [place], [place] [address]Rr# [phone] Neutrophils/100 WBC (Bld) 92.5 % High 45-75 [facility] Comment on above: Order Comment: Campu s: M Performed By: #### L 200.44894 ####[address] [address]Vz# [phone] Nucleated RBC/100 WBC (Bld) [Ratio] 0.0 % Normal Less than 1 [facility] Comment on above: Order Comment: Campu s: M Performed By: #### L 200.36504 ####[facility] HJJABDOVLF[address] [place] [address]Pk# [phone] Platelet mean volume (Bld) [Entitic vol] 12.4 fL Normal 9.4-12.4 [facility] Comment on above: Order Comment: Campu s: M Performed By: #### L 200.85213 ####[facility] BUGJFAXXIJ94[address] [place] [address]Rf# [phone] PLT 211 K/CU MM Normal 150-450 [facility] Comment on above: Order Comment: Campu s: M Performed By: #### L 200.12190 ####[facility] TCITCHZXNH42[address] [place] [address]Gc# [phone] RBC 4.65 M/CU MM Normal 3.90-5.30 [facility] Comment on above: Order Comment: Campu s: M Performed By: #### L 200.52331 ####[facility] NBHNGDDBNP[address] [place] [address] 477[address]Ds# [phone] WBC 22.6 K/CUMM High 4.5-11.0 [facility] Comment on above: Order Comment: Campu s: M Performed By: #### L 200.75869 ####[facility] YLIJVJYXWE9291 [place], [place] [address]By# [phone] CT ABD/PEL W IV CONTRAST ONL Yon 05-31-2021 CT ABD/PEL W IV CONTRAST ONLY Normal [facility] GFR ESTon 05-31-2021 IF AMER Greater than 60 Normal [facility] Comment on above: Order Comment: Campu s: M Performed By: #### L 500.52715, L500.41929, L500.91313, L500.49195 ####[facility] JSOPBOYXVR6356 [place], [place] [address]Jx# [phone] IF non-AFR AMER Greater than 60 Normal [facility] Comment on above: Order Comment: Campu s: M Performed By: #### L 500.21733, L500.48071, L500.02809, L500.73642 ####[facility] DKMYQZSWAG0821 [place], [place] [address]Yj# [phone] GLUCOSE METERon 05-31-2021 Glucose [Mass/Vol] 405 mg/dL High 70-115 [facility] LACTATE BLOODon 05-31-2021 LACTATE BLOOD 3.32 MMOL/L High 0.40-2.00 [facility] Comment on above: Order Comment: Campu s: M Performed By: #### L 550.41594 ####[facility] RSFCAJQJLS0015 [place], [place] [address]Ag# [phone] LIPASEon 05-31-2021 Lipase [Catalytic activity/Vol] 18 U/L Normal 12-60 [facility] Comment on above: Order Comment: Campu s: M Result Comment: NOTE NEW NORMAL RANGE DUE TO REAGENT CHANGE Performed By: #### L 500.46475, L500.48503, L500.45510, L500.06088 ####[facility] JQZNKVYJHZ9137 [place], [place] [address]Qp# [phone] LIVERon 05-31-2021 Albumin [Mass/Vol] 4.3 g/dL Normal 3.2-5.0 [facility] Comment on above: Order Comment: Benjiu s: M Performed By: #### L 500.13540, L500.09866, L500.71266, L500.56014 ####[facility] WMIJRZPIEY2509 [place], [place] [address]Yk# [phone] Albumin/Globulin [Mass ratio] 1.4 {ratio} Normal 0.8-2.0 [facility] Comment on above: Order Comment: Campu s: M Performed By: #### L 500.35571, L500.43655, L500.58501, L500.91791 ####[facility] PJNIUPLGDQ8876 [place], [place] [address]Zs# [phone] ALK PHOS 89 U/L Normal 45-117 [facility] Comment on above: Order Comment: Benjiu s: M Performed By: #### L 500.62775, L500.46395, L500.88104, L500.80216 ####[facility] HBVHPMKDLQ2772 [place], [place] [address]Dn# [phone] ALT [Catalytic activity/Vol] 11 U/L Low 13-61 [facility] Comment on above: Order Comment: Benjiu s: M Result Comment: RESU LTS MAY BE FALSELY DEPRESSED AFTER THE ADMINISTRATION OFSULFASALAZINE AND/OR SULFAPYRIDINE. Performed By: #### L 500.34163, L500.97120, L500.21570, L500.55037 ####[facility] IILNRNFBTQ5734 [place], [place] [address]Ep# [phone] AST [Catalytic activity/Vol] 16 U/L Normal 8-34 [facility] Comment on above: Order Comment: Benjiu s: M Result Comment: RESU LTS MAY BE FALSELY DEPRESSED AFTER THE ADMINISTRATION OFSULFASALAZINE AND/OR SULFAPYRIDINE. Performed By: #### L 500.77168, L500.68118, L500.97174, L500.62573 ####[facility] TCNDTYBSEX1041 [place], [place] [address]Ub# [phone] BILI DIRECT 0.3 MG/DL Normal 0.00-0.36 [facility] Comment on above: Order Comment: Campu s: M Result Comment: NOTE NEW NORMAL RANGE DUE TO REAGENT CHANGE Performed By: #### L 500.84830, L500.07777, L500.91669, L500.09625 ####[facility] VSEBQALAUT4558 [place], [place] [address]Gi# [phone] BILI TOTAL 1.00 MG/DL Normal 0.2-1.0 [facility] Comment on above: Order Comment: Campu s: M Performed By: #### L 500.28808, L500.89322, L500.77002, L500.27151 ####[facility] ZOYHUNJTNZ0225 [place], [place] [address]Zr# [phone] Globulin (S) [Mass/Vol] 3.0 g/dL Normal 2.2-4.2 [facility] Comment on above: Order Comment: Campu s: M Performed By: #### L 500.50573, L500.84694, L500.55647, L500.18188 ####[facility] ERGQXUYNTH4538 [place], [place] [address]Bh# [phone] Protein [Mass/Vol] 7.3 g/dL Normal 6.0-8.5 [facility] Comment on above: Order Comment: Campu s: M Performed By: #### L 500.37332, L500.21473, L500.84974, L500.19520 ####[facility] UPPNNILSMZ[address] [place] [address]Um# [phone] PORTABLE CHESTon 05-31-2021 PORTABLE CHEST Normal [facility] [id number] 05-31-2021 SARS-CoV-2 (COVID-19) RNA DANIEL+probe Ql (Unsp spec) Negative Invalid Interpretation Code Negative [facility] Comment [...] performed by PCR. Performed By: #### L 770.31316 ####[facility] ABFZEQAAYU8894 [place], [place] [address]Zd# [phone] UA COMPLETEon 05-31-2021 Color (U) Straw Normal [facility] Comment on above: Order Comment: Campu s: M Performed By: #### L 600.07596 ####[address] [address]Wb# [phone] Glucose (U) [Mass/Vol] 500 mg/dL Normal NORMAL [facility] [place] Comment on above: Order Comment: Campu s: M Performed By: #### L 600.73295 ####[facility] FHWLUCSEUD[address] [place] [address]Dm# [phone] UA APPEARANCE Clear Normal CLEAR [facility] Comment on above: Order Comment: Campu s: M Performed By: #### L 600.39213 ####[facility] SMPCZTMLJK[address] [place] [address]Vn# [phone] UA BILIRUBIN Negative Normal NEGATIVE [facility] Comment on above: Order Comment: Campu s: M Performed By: #### L 600.14781 ####[facility] TNSYJBZRNU[address] [place] [address]Jh# [phone] UA BLOOD Negative Normal NEGATIVE [facility] Comment on above: Order Comment: Campu s: M Performed By: #### L 600.13724 ####[facility] XCPRKLXUKS[address] [place] [address]Fh# [phone] UA KETONE 80 Normal NEGATIVE [facility] Comment [facility] above: Order Comment: Campu s: M Performed By: #### L 600.10447 ####[facility] [id number] [place], [place] [address]Em# [phone] UA LK ESTERASE Negative Normal NEGATIVE [facility] Comment on above: Order Comment: Campu s: M Performed By: #### L 600.20185 ####[facility] [id number] [place], [place] [address]Um# [phone] UA NITRITE Negative Normal NEGATIVE [facility] Comment on above: Order Comment: Campu s: M Performed By: #### L 600.22567 ####[facility] [id number] [place] [address]Wa# [phone] UA PH 6.0 Normal - [facility] Comment on above: Order Comment: Campu s: M Performed By: #### L 600.72869 ####[address] [address]Na# [phone] UA PROTEIN Negative Normal NEGATIVE [facility] Comment on above: Order Comment: Campu s: M Performed By: #### L 600.06834 ####[facility] [id number] [place] [address]Vk# [phone] UA SPEC GRAV 1.030 Normal 1.005-1.030 [facility] Comment on above: Order Comment: Campu s: M Performed By: #### L 600.12381 ####[facility] [id number] [place] [address]Fv# [phone] UA UROBILINOGEN Negative Normal NORMAL [facility] Comment on above: Order Comment: Campu s: M Performed By: #### L 600.22872 ####[facility] [id number] [place] [address]As# [phone] BMPon 04-15-2021 Anion gap [Moles/Vol] 14 mmol/L Normal - [facility] Comment on above: Order Comment: Campu s: M Performed By: #### L 500.70444, L500.90014, L500.60226, L500.62878 ####[facility] [id number] [place], [place] [address]Jp# [phone] Calcium [Mass/Vol] 9.9 mg/dL Normal 8.5-10.5 [facility] Comment on above: Order Comment: Campu s: M Result Comment: NOTE NEW NORMAL RANGE DUE TO REAGENT CHANGE Performed By: #### L 500.83922, L500.60506, L500.64292, L500.34528 ####[facility] [id number] [place], [place] [address]Vw# [phone] Chloride [Moles/Vol] 96 mmol/L Low 98-107 [facility] Comment on above: Order Comment: Campu s: M Performed By: #### L 500.38401, L500.67664, L500.97847, L500.05382 ####[facility] [id number] [place], [place] [address]Uz# [phone] CO2 [Moles/Vol] 22.0 mmol/L Normal 21-32 [facility] Comment on above: Order Comment: Campu s: M Performed By: #### L 500.00605, L500.97755, L500.97568, L500.37518 ####[facility] YEHUVAKSBP4830 [place], [place] [address]Xo# [phone] Creatinine [Mass/Vol] 0.68 mg/dL Normal 0.510-0.950 [facility] Comment on above: Order Comment: Campu s: M Result Comment: Cleopatra ents receiving either N-Acetylcysteine (NAC) orMetamizole prior to venipuncture, may have falsely depressedresults. Performed By: #### L 500.74123, L500.31530, L500.03252, L500.65779 ####[facility] SGFAIOXZWG8133 [place], [place] [address]Zi# [phone] Glucose [Mass/Vol] 306 mg/dL High 70-100 [facility] Comment on above: Order Comment: Campu s: M Result Comment: 70-1 00- Normal Fasting; 100-125 Impaired Fasting; greaterthan 126 on more than one result- Diabetes. ADA guidelines.Results may be falsely elevated after the administration ofSulfapyridine.Results may be falsely depressed after the administration ofSulfasalazine. Performed By: #### L 500.82988, L500.92531, L500.75085, L500.60870 ####[facility] OWATJMMCLT3789 [place], [place] [address]Qr# [phone] Potassium [Moles/Vol] 3.3 mmol/L Low 3.5-5.1 [facility] Comment on above: Order Comment: Campu s: M Performed By: #### L 500.54216, L500.20317, L500.29411, L500.51841 ####[facility] JXFBQQJKDD7784 [place], [place] [address]Eo# [phone] Sodium [Moles/Vol] 133 mmol/L Low 136-145 [facility] Comment on above: Order Comment: Campu s: M Performed By: #### L 500.09450, L500.87896, L500.00508, L500.08075 ####[facility] GIRFNPUNHT4894 [place], [place] [address]Py# [phone] Urea nitrogen [Mass/Vol] 21 mg/dL Normal 7-26 [facility] Comment on above: Order Comment: Campu s: M Performed By: #### L 500.93070, L500.70420, L500.75195, L500.24935 ####[facility] TSWCWHFQMG3635 [place], [place] [address]Vq# [phone] Urea nitrogen/Creatinine [Mass ratio] 31 mg/mg High 15-24 [facility] Comment on above: Order Comment: Campu s: M Performed By: #### L 500.71226, L500.05255, L500.37927, L500.01018 ####[facility] MZQKRHBKBQ4563 [place], [place] [address]Rh# [phone] Stacie 04-15-2021 EMERGENCY PHYSICIAN REPORT This is a preliminary report only, as the practitioner review and authentication has not occurred. Normal [facility] ER Normal [facility] EMERGENCY PHYSICIAN REPORT This is a preliminary report only, as the practitioner review and authentication has not occurred. Normal [facility] ER Normal [facility] GFR ESTon 04-15-2021 IF AMER Greater than 60 [facility] Comment on above: Order Comment: Campu s: M Performed By: #### L 500.17130, L500.01055, L500.03156, L500.40765 ####[facility] FXUOIUYGOC3468 [place], [place] [address]Hf# [phone] IF non-AFR AMER Greater than 60 [facility] Comment on above: Order Comment: Campu s: M Performed By: #### L 500.21158, L500.64705, L500.67431, L500.89639 ####[facility] JUPFUMRCGL3395 [place], [place] [address]Cd# [phone] GLUCOSE METERon 04-15-2021 Glucose [Mass/Vol] 305 mg/dL High 70-115 [facility] Glucose [Mass/Vol] 197 mg/dL High 70-115 [facility] LACTATE BLOODon 04-15-2021 LACTATE BLOOD 2.16 MMOL/L High 0.40-2.00 [facility] Comment on above: Order Comment: Campu s: M Performed By: #### L 550.73007 ####[facility] JJLEKIFMOG3896 [place], [place] [address]Sl# [phone] LIPASEon 04-15-2021 Lipase [Catalytic activity/Vol] 19 U/L Normal 12-60 [facility] Comment on above: Order Comment: Campu s: M Result Comment: NOTE NEW NORMAL RANGE DUE TO REAGENT CHANGE Performed By: #### L 500.97450, L500.95253, L500.15636, L500.12253 ####[facility] YKXZTJUSXS3794 [place], [place] [address]Xv# [phone] LIVERon 04-15-2021 Albumin [Mass/Vol] 4.2 g/dL Normal 3.2-5.0 [facility] Comment on above: Order Comment: Campu s: M Performed By: #### L 500.67947, L500.06685, L500.18780, L500.54374 ####[facility] KULFZOFIBZ7303 [place], [place] [address]Hz# [phone] Albumin/Globulin [Mass ratio] 1.3 {ratio} Normal 0.8-2.0 [facility] Comment on above: Order Comment: Campu s: M Performed By: #### L 500.37131, L500.48531, L500.51423, L500.83893 ####[facility] ATKWZLDXNF5525 [place], [place] [address]Uo# [phone] ALK PHOS 102 U/L Normal 45-117 [facility] Comment on above: Order Comment: Campu s: M Performed By: #### L 500.79815, L500.81184, L500.76752, L500.03620 ####[facility] SGUOKAVJRQ0653 [place], [place] [address]Hk# [phone] ALT [Catalytic activity/Vol] 11 U/L Low 13-61 [facility] Comment on above: Order Comment: Campu s: M Result Comment: RESU LTS MAY BE FALSELY DEPRESSED AFTER THE ADMINISTRATION OFSULFASALAZINE AND/OR SULFAPYRIDINE. Performed By: #### L 500.74056, L500.53112, L500.38062, L500.28975 ####[facility] TKAWYUQRTZ9768 [place], [place] [address]Og# [phone] AST [Catalytic activity/Vol] 13 U/L Normal 8-34 [facility] Comment on above: Order Comment: Campu s: M Result Comment: RESU LTS MAY BE FALSELY DEPRESSED AFTER THE ADMINISTRATION OFSULFASALAZINE AND/OR SULFAPYRIDINE. Performed By: #### L 500.50801, L500.88198, L500.95917, L500.61902 ####[facility] ZNKAMLHJZB9167 [place], [place] [address]Th# [phone] BILI DIRECT 0.3 MG/DL Normal 0.00-0.36 [facility] Comment on above: Order Comment: Campu s: M Result Comment: NOTE NEW NORMAL RANGE DUE TO REAGENT CHANGE Performed By: #### L 500.91636, L500.32466, L500.12171, L500.53054 ####[facility] DQLOGKYNQN8230 [place], [place] [address]If# [phone] BILI TOTAL 1.10 MG/DL High 0.2-1.0 [facility] Comment on above: Order Comment: Campu s: M Performed By: #### L 500.76676, L500.53694, L500.05704, L500.18938 ####[facility] OISLVNHILM0008 [place], [place] [address]Cq# [phone] Globulin (S) [Mass/Vol] 3.3 g/dL Normal 2.2-4.2 [facility] Comment on above: Order Comment: Campu s: M Performed By: #### L 500.55252, L500.76712, L500.59729, L500.76773 ####[facility] LLTIPVPXGM3172 [place], [place] [address]Wm# [phone] Protein [Mass/Vol] 7.5 g/dL Normal 6.0-8.5 [facility] Comment on above: Order Comment: Campu s: M Performed By: #### L 500.63973, L500.66257, L500.15539, L500.01814 ####[facility] PVFAQBBTBN0146 [place], [place] [address]Xb# [phone] UA COMPLETEon 04-15-2021 Color (U) Yellow Normal [facility] Comment on above: Order Comment: Campu s: M Performed By: #### L 600.20565 ####[facility] BIZPZSDRZU6809 [place], [place] [address]Hv# [phone] Glucose (U) [Mass/Vol] 500 mg/dL Normal NORMAL [facility] Comment on above: Order Comment: Campu s: M Performed By: #### L 600.38759 ####[facility] WBDMABYHNQ0402 [place], [place] [address]Qp# [phone] Mucus Ql (Urine sed) TRACE Normal NEGATIVE [facility] Comment on above: Order Comment: Campu s: M Performed By: #### L 600.77454 ####[facility] [id number] [place] [address]Fj# [phone] SQUAMOUS EPIS 2 EPI/HPF Normal 0-5 [facility] Comment on above: Order Comment: Campu s: M Performed By: #### L 600.09020 ####[address] [address]Si# [phone] UA APPEARANCE Clear Normal CLEAR [facility] Comment on above: Order Comment: Campu s: M Performed By: #### L 600.85559 ####[place] [address]Ph# [phone] UA BACTERIA TRACE Normal NONE [facility] Comment on above: Order Comment: Campu s: M Performed By: #### L 600.41714 ####[address] [address]Ya# [phone] UA BILIRUBIN Negative Normal NEGATIVE [facility] Comment on above: Order Comment: Campu s: M Performed By: #### L 600.22006 ####[facility] [id number] [place] [address]Wt# [phone] UA BLOOD Negative Normal NEGATIVE [facility] Comment on above: Order Comment: Campu s: M Performed By: #### L 600.54960 ####[facility] [address]TAJTSHUV23[address] [place] [address]Zc# [phone] UA KETONE [address] [facility] Comment on above: Order Comment: Campu s: M Performed By: #### L 600.93978 ####[facility] [id number] [place] [address]Yb# [phone] UA LK ESTERASE Negative [facility] NEGATIVE [facility] Comment on above: Order Comment: Campu s: M Performed By: #### L 600.92172 ####[facility] [id number] [place] [address]Gg# [phone] UA NITRITE Negative Normal NEGATIVE [facility] Comment on above: Order Comment: Campu s: M Performed By: #### L 600.06628 ####[facility] OHKOREBDZZ[address] [place] [address]Ua# [phone] UA PH 6.0 Normal 5-6 [facility] Comment on above: Order Comment: Campu s: M Performed By: #### L 600.30089 ####[address] [address]Dr# [phone] UA PROTEIN [address] [facility] Comment on above: Order Comment: Campu s: M Performed By: #### L 600.95647 ####[facility] JSMKYKCLAN9[address] [place] [address]Hn# [phone] UA RBC 1 RBC/HPF Normal 0-3 [facility] Comment on above: Order Comment: Campu s: M Performed By: #### L 600.74401 ####[address] [address]Uy# [phone] UA SPEC GRAV 1.017 Normal 1.005-1.030 [facility] Comment on above: Order Comment: Campu s: M Performed By: #### L 600.02439 ####[facility] [id number] [place] [address]Rv# [phone] UA UROBILINOGEN Negative Normal NORMAL [facility] Comment on above: Order Comment: Campu s: M Performed By: #### L 600.25312 ####[facility] QDUUDOGMXY7400[address] [place] [address]Te# [phone] UA WBC 6 WBC/HPF High 0-5 [facility] Comment on above: Order Comment: Campu s: M Performed By: #### L 600.30025 ####[facility] PTAWJLIHXH2758 [place], [place] [address]Qf# [phone] BMPon 03-17-2021 Anion gap [Moles/Vol] 16 mmol/L Normal 5-16 [facility] Comment on above: Order Comment: Campu s: M Performed By: #### L 500.69332, L500.87551 ####[facility] ZOAFCIXWSC5539 [place], [place] [address]Gc# [phone] Calcium [Mass/Vol] 10.0 mg/dL Normal 8.5-10.5 [facility] Comment on above: Order Comment: Campu s: M Result Comment: NOTE NEW NORMAL RANGE DUE TO REAGENT CHANGE Performed By: #### L 500.70433, L500.95417 ####[facility] HHMJYDCGWN8882 [place], [place] [address]Pf# [phone] Chloride [Moles/Vol] 102 mmol/L Normal 98-107 [facility] Comment on above: Order Comment: Campu s: M Performed By: #### L 500.27411, L500.08340 ####[facility] WMWRKGIAYW0786 [place], [place] [address]Ck# [phone] CO2 [Moles/Vol] 16.0 mmol/L Low 21-32 [facility] Comment on above: Order Comment: Campu s: M Performed By: #### L 500.11450, L500.69667 ####[facility] GOVJWKPZZO4684 [place], [place] [address]Zr# [phone] Creatinine [Mass/Vol] 0.71 mg/dL Normal 0.510-0.950 [facility] Comment on above: Order Comment: Campu s: M Result Comment: Cleopatra ents receiving either N-Acetylcysteine (NAC) orMetamizole prior to venipuncture, may have falsely depressedresults. Performed By: #### L 500.45650, L500.87303 ####[facility] NYCGDXCERB4739 [place], [place] [address]Lk# [phone] Glucose [Mass/Vol] 418 mg/dL High 70-100 [facility] Comment on above: Order Comment: Campu s: M Result Comment: 70-1 00- Normal Fasting; 100-125 Impaired Fasting; greaterthan 126 on more than one result- Diabetes. ADA guidelines.Results may be falsely elevated after the administration ofSulfapyridine.Results may be falsely depressed after the administration ofSulfasalazine. Performed By: #### L 500.52143, L500.40798 ####[facility] NRYSBWVXNC5789 [place], [place] [address]Ud# [phone] Potassium [Moles/Vol] 4.2 mmol/L Normal 3.5-5.1 [facility] Comment on above: Order Comment: Campu s: M Result Comment: Slig ht Hemolysis, Result may be affected. Performed By: #### L 500.64719, L500.80924 ####[facility] SQBJIITVBT[address] [place] [address]Um# [phone] Sodium [Moles/Vol] 134 mmol/L Low 136-145 [facility] Comment on above: Order Comment: Campu s: M Performed By: #### L 500.80467, L500.33679 ####[facility] JELOJRIHXT3744 [place], [place] [address]Oz# [phone] Urea nitrogen [Mass/Vol] 25 mg/dL Normal 7-26 [facility] Comment on above: Order Comment: Campu s: M Performed By: #### L 500.13440, L500.84792 ####[facility] SBQGZVRNXC[address] [place] [address]Ed# [phone] Urea nitrogen/Creatinine [Mass ratio] 35 mg/mg High 15-24 [facility] Comment on above: Order Comment: Campu s: M Performed By: #### L 500.35059, L500.96762 ####[facility] LXNWOAOSOX3252 [place], [place] [address]Cj# [phone] CBC W/DIFFon 03-17-2021 BASO ABS 0.00 K/CU MM Normal 0-0.2 [facility] Comment on above: Order Comment: Campu s: M Performed By: #### L 200.53571 ####[facility] OYTNDPCMDQ[address] [place] [address]Pa# [phone] Basophils/100 WBC (Bld) 0.1 % Normal 0-2 [facility] Comment on above: Order Comment: Campu s: M Performed By: #### L 200.52319 ####[place] [address]Ph# [phone] EOS ABS 0.00 K/CU MM Normal 0-0.5 [facility] Comment on above: Order Comment: Campu s: M Performed By: #### L 200.67158 ####[address] [address]Up# [phone] Eosinophils/100 WBC (Bld) 0.0 % Normal 0-5 [facility] Comment on above: Order Comment: Campu s: M Performed By: #### L 200.10969 ####[address] [address]Gh# [phone] Erythrocyte distribution width (RBC) [Ratio] 14.6 % High 11-14.5 [facility] Comment on above: Order Comment: Campu s: M Performed By: #### L 200.36224 ####[place] [address]Ph# [phone] Hematocrit (Bld) [Volume fraction] 37.2 % Normal 35.0-47.0 [facility] Comment on above: Order Comment: Campu s: M Performed By: #### L 200.48952 ####[facility] HVRXJFDZYQ95[address] [place] [address]Ti# [phone] Hemoglobin (Bld) [Mass/Vol] 12.4 g/dL Normal 11.5-15.5 [facility] Comment on above: Order Comment: Campu s: M Performed By: #### L 200.91547 ####[facility] TWAXFFWAUC7613 [place], [place] [address]Qa# [phone] IMMATR GRAN ABS 0.10 K/CU MM Normal Less than 2 [facility] Comment on above: Order Comment: Campu s: M Performed By: #### L 200.03619 ####[address] [address]It# [phone] IMMATURE GRAN % 0.8 % Normal Less than 2 [facility] Comment on above: Order Comment: Campu s: M Performed By: #### L 200.04671 ####[place] [address]Ph# [phone] LYMPH ABS 0.80 K/CU MM Low 0.9-4.4 [facility] Comment on above: Order Comment: Campu s: M Performed By: #### L 200.40724 ####[place] [address]Ph# [phone] Lymphocytes/100 WBC (Bld) 4.5 % Low 20-40 [facility] Comment on above: Order Comment: Campu s: M Performed By: #### L 200.10390 ####[place] [address]Ph# [phone] MCHC (RBC) [Mass/Vol] 33.3 g/dL Normal 32.0-36.0 [facility] Comment on above: Order Comment: Campu s: M Performed By: #### L 200.37031 ####[facility] RG[address]KCKBEM[address] [place], [place] [address]Ph# [phone] MCV (RBC) [Entitic vol] 83.2 fL Normal 80.0-99.0 [facility] Comment on above: Order Comment: Campu s: M Performed By: #### L 200.04903 ####[facility] AGTMJFLBEM[address] [place], [place] [address]Ph# [phone] MONO ABS 0.30 K/CU MM Normal 0.1-1.1 [facility] Comment on above: Order Comment: Campu s: M Performed By: #### L 200.77798 ####[facility] EPLFJTHYUE3429 [place], [place] [address]Gi# [phone] Monocytes/100 WBC (Bld) 1.7 % Low 2-10 [facility] Comment on above: Order Comment: Campu s: M Performed By: #### L 200.24193 ####[facility] QRELXVPHMG1983 [place], [place] [address]Bn# [phone] NEUTROPHIL ABS 16.70 K/CU MM High 2.0-8.3 [facility] Comment on above: Order Comment: Campu s: M Performed By: #### L 200.41285 ####[facility] [id number] [place] [address]Vv# [phone] Neutrophils/100 WBC (Bld) 92.9 % High 45-75 [facility] Comment on above: Order Comment: Campu s: M Performed By: #### L 200.74423 ####[facility] IDQPNLVPJZ5868 [place], [place] [address]Iu# [phone] Nucleated RBC/100 WBC (Bld) [Ratio] 0.0 % Normal Less than 1 [facility] Comment on above: Order Comment: Campu s: M Performed By: #### L 200.19551 ####[facility] NHMQTFLXSL0577 [place], [place] [address]Se# [phone] Platelet mean volume (Bld) [Entitic vol] 12.9 fL High 9.4-12.4 [facility] Comment on above: Order Comment: Campu s: M Performed By: #### L 200.64485 ####[facility] JXZEKPDZWI9236 [place], [place] [address]Oo# [phone] PLT 181 K/CU MM Normal 150-450 [facility] Comment on above: Order Comment: Campu s: M Performed By: #### L 200.12420 ####[facility] SJZDJJXXFY2970 [place], [place] [address]Cc# [phone] RBC 4.47 M/CU MM Normal 3.90-5.30 [facility] Comment on above: Order Comment: Campu s: M Performed By: #### L 200.76671 ####[facility] LPFUNCJTZL0911 [place], [place] [address]Ua# [phone] WBC 17.9 K/CUMM High 4.5-11.0 [facility] Comment on above: Order Comment: Campu s: M Performed By: #### L 200.29478 ####[facility] UOPAYCBCEQ1895 [place], [place] [address]Nr# [phone] Stacie 03-17-2021 EMERGENCY PHYSICIAN REPORT This is a preliminary report only, as the practitioner review and authentication has not occurred. Normal [facility] ER [facility] EMERGENCY PHYSICIAN REPORT This is a preliminary report only, as the practitioner review and authentication has not occurred. Normal [facility] ER Normal [facility] ESTon 03-17-2021 IF AMER Greater than 60 [facility] Comment on above: Order Comment: Campu s: M Performed By: #### L 500.30402, L500.07345 ####[facility] PDMJFIGOFX2803 [place], [place] [address]Ar# [phone] IF non-AFR AMER Greater than 60 [facility] Comment on above: Order Comment: Campu s: M Performed By: #### L 500.56606, L500.89437 ####[facility] DIJXQEKSTM4379 [place], [place] [address]Xa# [phone] GLUCOSE METERon 03-17-2021 Glucose [Mass/Vol] 333 mg/dL High 70-115 [facility] Glucose [Mass/Vol] 360 mg/dL High 70-115 [facility] VBG PHon 03-17-2021 VBG PH 7.40 MMHG Normal 7.31-7.41 [facility] Comment on above: Order Comment: Campu s: M Performed By: #### L 100.93478 ####[facility] SBSRLMHHJY1187 [place] [address]Ph# [phone] A1C [facility] 02-24-2017 Hemoglobin A1c/Hemoglobin.total mass fraction (Bld) 10.8 % High 4.0-6.0 [facility] Comment on above: Performed By: #### G FR ####[facility], [address] [place], [place] [address] Basic Metabolic Panelon 01-28 BUN/Creatinine Ratio 21.4 mg/mg Normal 10.0-22.0 [facility] Comment on above: Order Comment: CBN Performed By: #### G FR ####[place] [address] Creatinine 0.56 mg/dL Normal 0.50-1.20 [facility] Comment on above: Order Comment: CBN Performed By: #### G FR ####[facility], [address] [place], [place] [address] Calcium 7.8 mg/dL Low 8.4-10.1 [facility] Comment on above: Order Comment: CBN Performed By: #### G FR ####[place] [address] Chloride 107 mmol/L Normal 98-110 [facility] Comment on above: Order Comment: CBN Performed By: #### G FR ####[place] 6[address]10 Electrolyte Balance 10.0 mEq/L Normal 4.0-15.0 [facility] Comment on above: Order Comment: CBN Performed By: #### G FR ####[place] [address]10 Sodium 138 mmol/L Normal 136-145 [facility] Comment on above: Order Comment: CBN Performed By: #### G FR ####[address] [address] Glucose mass conc 289 mg/dL High 70-110 [facility] Comment on above: Order Comment: CBN Performed By: #### G FR ####[facility], [address] [place] [address] CO2 21 mmol/L Low 22-32 [facility] Comment on above: Order Comment: CBN Performed By: #### G FR ####[facility], [address] [place], [place] [address] Urea nitrogen 12.0 mg/dL Normal 8.0-22.0 [facility] Comment on above: Order Comment: CBN Performed By: #### G FR ####[place] [address] Potassium molar conc 3.7 mmol/L Normal 3.5-5.0 [facility] Comment on above: Order Comment: CBN Performed By: #### G FR ####[facility], [address] [place], [place] [address] CBCon 02-24-2017 Basophils/100 WBC Auto (Bld) 0.4 % Normal 0.0-2.5 [facility] Comment on above: Order Comment: CBN Performed By: #### G FR ####[place] [address] Eosinophils/100 leukocytes 1.5 % Normal 0.0-6.0 [facility] Comment on above: Order Comment: CBN Performed By: #### G FR ####[facility], [address] [place] [address] Erythrocyte distribution width Auto Ratio (RBC) 15.1 % Normal 11.5-15.5 [facility] Comment on above: Order Comment: CBN Performed By: #### G FR ####[place] [address] Erythrocytes (RBC) 4.19 10 6/mcL Normal 4.10-5.30 [facility] Comment on above: Order Comment: CBN Performed By: #### G FR ####[facility], [address] [place] [address] Hematocrit (HCT) 35.9 % Normal 34.0-46.0 [facility] Comment on above: Order Comment: CBN Performed By: #### G FR ####[facility], [address] [place] [address] Hemoglobin mass conc (Bld) 11.9 G/dL Low 12.0-16.0 [facility] Comment on above: Order Comment: CBN Performed By: #### G FR ####[facility], [address] [place] [address] Lymphocytes/100 leukocytes 36.7 % Normal 20.0-40.0 [facility] Comment on above: Order Comment: CBN Performed By: #### G FR ####[facility], [address] [place] [address] [id number] MCH 28.5 pg Normal 27.0-33.0 [facility] Comment on above: Order Comment: CBN Performed By: #### G FR ####[facility], [address] [place] [address] [id number] MCHC mass conc (RBC) 33.2 G/dL Normal 32.0-36.0 [facility] Comment on above: Order Comment: CBN Performed By: #### G FR ####[facility], [address] [place] [address] [id number] MCV 85.8 fL Normal 80.0-99.0 [facility] Comment on above: Order Comment: CBN Performed By: #### G FR ####[facility], [address] [place] [address] [id number] Monocytes/100 leukocytes 4.9 % Normal 2.0-13.0 [facility] Comment on above: Order Comment: CBN Performed By: #### G FR ####[facility], [address] [place] [address] [id number] Neutrophils 4.40 10 3/mcL Normal 1.90-7.90 [facility] Comment on above: Order Comment: CBN Performed By: #### G FR ####[facility], [address] [place] [address] [id number] Neutrophils/100 WBC Auto (Bld) 56.5 % Normal 50.0-75.0 [facility] Comment on above: Order Comment: CBN Performed By: #### G FR ####[facility], [address] [place] [address] [id number] Platelet mean volume (PMV) 8.0 fL Normal 6.6-10.5 [facility] Comment on above: Order Comment: CBN Performed By: #### G FR ####[facility], [address] [place] [address] 16720 Platelets 301 10 3/mcL Normal 150-450 [facility] Comment on above: Order Comment: CBN Performed By: #### G FR ####[facility], [facility] [address] [place] [address] 15448 WBC (Leukocytes) 7.70 10 3/mcL Normal 4.50-10.80 [facility] Comment on above: Order Comment: CBN Performed By: #### G FR ####[facility], [facility] [address] [place] [address] 67909 Depart Summaryon 02-24-2017 Depart Summary Normal [facility] Discharge Note-Physicianon 0 02-24-2017 Discharge Note-Physician Normal [facility] Glomerular Filtration Rate E stimateon 02-24-2017 eGFR (non-black) mL/min/{1.73_m2} Normal [facility] Comment on above: Order Comment: CBN Result Comment: Davidson kowalski mean GFR = 116 mL/min/1.73 sq.m. for ages 20-29 years. Chronic Kidney Disease: Less than 60 mL/min/1.73 square metersEnd Stage Renal Disease: Less than 15 mL/min/1.73 square meters Performed By: #### G FR ####[facility], [facility] [address] [place] [address] 96864 History and Physicalon 02-24 History and Physical Normal [facility] Inpatient Patient Summaryon 02-24-2017 Inpatient Patient Summary Normal [facility] Troponin Ion 02-24-2017 Troponin I.cardiac mass conc ng/mL Normal 0.000-0.040 [facility] Comment on above: Result Comment: Trop onin I reference ranges (05/05/14): 0.00-0.040 ng/mL Negative and non-diagnostic. >0.040 ng/mL Consistent with cardiac damage, increased clinical risk and possibility of myocardial infarction. Serial measurements, a rise & fall in test results, clinical history, appropriate symptoms and/or ECG changes may help assess possibility of [place]. *Other non-acute coronary syndrome conditions such as CHF, myocarditis, pulmonary emboli, sepsis and cardiac surgery could result in myocardial damage and increased troponin levels. NOTE: This is a new and more precise Troponin assay started 05-05-14 Performed By: #### C BC ####[place] [address] B-Hydroxybutyrateon 02-24-20 17 B-Hydroxybutyrate 51.30 mg/dL High 0.20-2.81 [facility] Comment on above: Performed By: #### C BC ####[place] [id number] Basic Metabolic Panelon 01-27 BUN/Creatinine Ratio 32.1 mg/mg High 10.0-22.0 [facility] Comment on above: Performed By: #### C BC ####[place] [address] Creatinine 0.53 mg/dL Normal 0.50-1.20 [facility] Comment on above: Performed By: #### C BC ####[place] [id number] Calcium 8.0 mg/dL Low 8.4-10.1 [facility] Comment on above: Performed By: #### C BC ####[place] [id number] Chloride 109 mmol/L Normal 98-110 [facility] Comment on above: Performed By: #### C BC ####[facility], [address], [place] [address] Electrolyte Balance 15.0 mEq/L Normal 4.0-15.0 [facility] Comment on above: Performed By: #### C BC ####[facility], [address] [place] [address] 23037 Sodium 141 mmol/L Normal 136-145 [facility] Comment on above: Performed By: #### C BC ####[facility], [address] [place] [address] 31292 CO2 17 mmol/L Low 22-32 [facility] Comment on above: Performed By: #### C BC ####[facility], [address] [place] [address] 29004 Glucose mass conc 160 mg/dL High 70-110 [facility] Comment on above: Performed By: #### C BC ####[facility], [address] [place] [address] 61917 Urea nitrogen 17.0 mg/dL Normal 8.0-22.0 [facility] Comment on above: Performed By: #### C BC ####[facility], [address] [place] [address] 84236 Potassium molar conc 3.9 mmol/L Normal 3.5-5.0 [facility] Comment on above: Performed By: #### C BC ####[facility], [address] [place] [address] 59580 Calcium 7.9 mg/dL Low 8.4-10.1 [facility] Comment on above: Performed By: #### C BC ####[facility], [address] [place] [address] 47562 Chloride 103 mmol/L Normal 98-110 [facility] Comment on above: Performed By: #### C BC ####[facility], [address] [place] [address] 26160 Electrolyte Balance 15.0 mEq/L Normal 4.0-15.0 [facility] Comment on above: Performed By: #### C BC ####[facility], [address] [place] [address] 22836 BUN/Creatinine Ratio 33.3 mg/mg High 10.0-22.0 [facility] Comment on above: Performed By: #### C BC ####[facility], [address] [place] [address] 57037 Creatinine 0.54 mg/dL Normal 0.50-1.20 [facility] Comment on above: Performed By: #### C BC ####[facility], [address] [place] [address] 41459 CO2 19 mmol/L Low 22-32 [facility] Comment on above: Performed By: #### C BC ####[facility], [address] [place] [address] 92999 Glucose mass conc 368 mg/dL High 70-110 [facility] Comment on above: Performed By: #### C BC ####[facility], [address] [place] [address] 89555 Urea nitrogen 18.0 mg/dL Normal 8.0-22.0 [facility] Comment on above: Performed By: #### C BC ####[facility], [address] [place] [address] 04000 Potassium molar conc 4.2 mmol/L Normal 3.5-5.0 [facility] Comment on above: Performed By: #### C BC ####[facility], [address] [place] [address] 50594 Sodium 137 mmol/L Normal 136-145 [facility] Comment on above: Performed By: #### C BC ####[facility], [address] [place] [address] 02386 Glucose mass conc 568 mg/dL Critically high 70-110 [facility] Comment on above: Order Comment: CBN Performed By: #### B MP ####[facility], [address] [place] [address] 59677 BUN/Creatinine Ratio 27.3 mg/mg High 10.0-22.0 [facility] Comment on above: Order Comment: CBN Performed By: #### B MP ####[address] [address] Creatinine 0.77 mg/dL Normal 0.50-1.20 [facility] Comment on above: Order Comment: CBN Performed By: #### B MP ####[facility], [address] [place] [address] 55493 Calcium 10.1 mg/dL Normal 8.4-10.1 [facility] Comment on above: Order Comment: CBN Performed By: #### B MP ####[facility], [facility]0 [address] [place] [address] 47118 CO2 21 mmol/L Low 22-32 [facility] Comment on above: Order Comment: CBN Performed By: #### B MP ####[facility], [facility]0 [address] [place] [address] 15949 Electrolyte Balance 19.0 mEq/L High 4.0-15.0 [facility] Comment on above: Order Comment: CBN Performed By: #### B MP ####[facility], [address] [place] [address] 28767 Urea nitrogen 21.0 mg/dL Normal 8.0-22.0 [facility] Comment on above: Order Comment: CBN Performed By: #### B MP ####[facility], [address] [place] [address] 79880 Chloride 89 mmol/L Low 98-110 [facility] Comment on above: Order Comment: CBN Performed By: #### B MP ####[address] [address] Potassium molar conc 4.5 mmol/L Normal 3.5-5.0 [facility] Comment on above: Order Comment: CBN Performed By: #### B MP ####[facility], [address] [place] [address] 18044 Sodium 129 mmol/L Low 136-145 [facility] Comment on above: Order Comment: CBN Performed By: #### B MP ####[facility], [address] [place] [address] 14596 CBCon 02-23-2017 Basophils/100 WBC Auto (Bld) 0.7 % Normal 0.0-2.5 [facility] Comment on above: Order Comment: CBN Performed By: #### C BC ####[facility], [address] [place] [address] 14561 Eosinophils/100 leukocytes 0.7 % Normal 0.0-6.0 [facility] Comment on above: Order Comment: CBN Performed By: #### C BC ####[facility], [address] [place] [address] 42763 Erythrocyte distribution width Auto Ratio (RBC) 14.9 % Normal 11.5-15.5 [facility] Comment on above: Order Comment: CBN Performed By: #### C BC ####[facility], [address] [place] [address] 20242 Erythrocytes (RBC) 5.16 10 6/mcL Normal 4.10-5.30 [facility] Comment on above: Order Comment: CBN Performed By: #### C BC ####[address] [address] Hematocrit (HCT) 44.8 % Normal 34.0-46.0 [facility] Comment on above: Order Comment: CBN Performed By: #### C BC ####[facility], [address] [place] [address] 98308 Hemoglobin mass conc (Bld) 14.7 G/dL Normal 12.0-16.0 [facility] Comment on above: Order Comment: CBN Performed By: #### C BC ####[facility], [address] [place] [address] 14525 Lymphocytes/100 leukocytes 21.2 % Normal 20.0-40.0 [facility] Comment on above: Order Comment: CBN Performed By: #### C BC ####[address] [address] MCH 28.5 pg Normal 27.0-33.0 [facility] Comment on above: Order Comment: CBN Performed By: #### C BC ####[address] [address] MCHC mass conc (RBC) 32.8 G/dL Normal 32.0-36.0 [facility] Comment on above: Order Comment: CBN Performed By: #### C BC ####[facility], [address] [place] [address] 93205 MCV 86.9 fL Normal 80.0-99.0 [facility] Comment on above: Order Comment: CBN Performed By: #### C BC ####[facility], [address] [place] [address] 96925 Monocytes/100 leukocytes 3.9 % Normal 2.0-13.0 [facility] Comment on above: Order Comment: CBN Performed By: #### C BC ####[address] [address] Neutrophils 6.10 10 3/mcL Normal 1.90-7.90 [facility] Comment on above: Order Comment: CBN Performed By: #### C BC ####[address] [address] Neutrophils/100 WBC Auto (Bld) 73.5 % Normal 50.0-75.0 [facility] Comment on above: Order Comment: CBN Performed By: #### C BC ####[address] [address] Platelet mean volume (PMV) 7.9 fL Normal 6.6-10.5 [facility] Comment on above: Order Comment: CBN Performed By: #### C BC ####[facility], [address] [place] [address] 63318 Platelets 316 10 3/mcL Normal 150-450 [facility] Comment on above: Order Comment: CBN Performed By: #### C BC ####[address] [address] WBC (Leukocytes) 8.30 10 3/mcL Normal 4.50-10.80 [facility] Comment on above: Order Comment: CBN Performed By: #### C BC ####[address] [place] [address] Culture Bloodon 02-23-2017 Culture Blood Name : KATHLEEN VILLA Brynn Roque: 1995 Sex: Ovalles# Loc Src Site [id number] Blood #1 02/23/17NTIBIOTICS AT COL.: See ADY AngelFLBARRY MEDICINE RESIDENT [address] [place] [address] [id number] Blood FINALCulture has been received in lab and is no growth to date.Routine cultures are held for 5 days.Blood Culture: No Growth at 5 daysKEY FOR RESULTS: - NEW RESULTATT.PHYS.: VAMSI MARRUFO LOCATION: [id number].DATE: 02/23/17 PATIENT : KATHLEEN VILLA LMICROBIOLOGYPRINTED: 02/28/17 18:00 REGULAR 2 PAGE: 2 of 1 1 Normal [facility] Drug Screen (s)on 02-23-2017 Acetaminophen mass conc <2.0 Low 10.0-30.0 [facility] Comment on above: Performed By: #### C BC ####[facility], [address] [place] [address] 69500 Drug Screen (s) Positive Normal [facility] Comment on above: Result Comment: . THE SERUM SHOWS EVIDENCE OF:1. Salicylate. Performed By: #### C BC ####[facility], [address] [place] [address] 47519 Ethanol mg/dL Normal [facility] Comment on above: Performed By: #### C BC ####[facility], [address] [place] [address] 37385 Serum TCA Negative Normal [facility] Comment on above: Performed By: #### C BC ####[facility], [address] [place] [address] 85103 Salicylate (ds) 3.0 mg/dL Low 10.0-25.0 [facility] Comment on above: Performed By: #### C BC ####[address] [address] Drugs screened: SEE BELOW Normal [facility] Comment on above: Result Comment: T his drug screen is a presumptive screening only. Noconfirmation will be performed unless requested.Drugs screened include: Threshold Ethanol 10.0 mg/dl Salicylate 2.0 mg/dL Acetaminophen 2.0 mcg/mL Tricyclic Antidepressants 300 ng/mLTesting has been performed FOR MEDICAL PURPOSES ONLY. Performed By: #### C BC ####[place] [address] ED Note-Provideron 7 ED Note-Provider Normal [facility] Glomerular Filtration Rate E stimateon 02-23-2017 eGFR (non-black) mL/min/{1.73_m2} Normal [facility] Comment on above: Result Comment: Davidson lation mean GFR = 116 mL/min/1.73 sq.m. for ages 20-29 years. Chronic Kidney Disease: Less than 60 mL/min/1.73 square metersEnd Stage Renal Disease: Less than 15 mL/min/1.73 square meters Performed By: #### C BC ####[place] [id number] eGFR (non-black) mL/min/{1.73_m2} Normal [facility] Comment on above: Result Comment: Popu lation mean GFR = 116 mL/min/1.73 sq.m. for ages 20-29 years. Chronic Kidney Disease: Less than 60 mL/min/1.73 square metersEnd Stage Renal Disease: Less than 15 mL/min/1.73 square meters Performed By: #### G FR ####[place] [id number] eGFR (non-black) mL/min/{1.73_m2} Normal [facility] Comment on above: Order Comment: CBN Performed By: #### G FR ####[place] [address] Result Comment: Davidson kowalski mean GFR = 116 mL/min/1.73 sq.m. for ages 20-29 years. Chronic Kidney Disease: Less than 60 mL/min/1.73 square metersEnd Stage Renal Disease: Less than 15 mL/min/1.73 square meters Magnesiumon 02-23-2017 Magnesium 2.0 mg/dL Normal 1.6-2.4 [facility] Comment on above: Performed By: #### M G ####[place] [address] Osmolality (s)on 02-23-2017 Osmolality 299 mOsm/kg Normal 275-300 [facility] Comment on above: Performed By: #### C BC ####[place] [address] Phosphoruson 02-23-2017 Phosphate 2.8 mg/dL Normal 2.5-4.5 [facility] Comment on above: Performed By: #### P HOS ####[place] [address] TSHon 02-23-2017 Thyroid stimulating hormone (TSH) 0.62 mcIU/mL Normal 0.36-3.74 [facility] Comment on above: Performed By: #### C BC ####[place] [address] Troponin Ion 02-23-2017 Troponin I.cardiac mass conc ng/mL Normal 0.000-0.040 [facility] Comment on above: Result Comment: Trop onin I reference ranges (05/05/14): 0.00-0.040 ng/mL Negative and non-diagnostic. >0.040 ng/mL Consistent with cardiac damage, increased clinical risk and possibility of myocardial infarction. Serial measurements, a rise & fall in test results, clinical history, appropriate symptoms and/or ECG changes may help assess possibility of [place]. *Other non-acute coronary syndrome conditions such as CHF, myocarditis, pulmonary emboli, sepsis and cardiac surgery could result in myocardial damage and increased troponin levels. NOTE: This is a new and more precise Troponin assay started 05-05-14 Performed By: #### T AWAIS ####[facility], [address] [place] [address] XR CHEST 1 VIEWon 02-23-2017 XR CHEST [...] PM Sign Date: 02/23/2017 4:58:05 PM Normal [facility] XR FOOT COMPLETE RIGHTon XR FOOT [...] PM Sign Date: 02/23/2017 7:47:57 PM Normal [facility] pH (venous)on 02-23-2017 pH of blood 7.381 [pH] Normal 7.380-7.460 [facility] Comment on above: Order Comment: CBN Performed By: #### P HV ####[facility] [address] [place] [address] Vital Signs Date Time Vital Sign Value Performing Clinician Facility 01-27-2025 13:08-0400 Diastolic blood pressure 87 mm[Hg] Mishel Neelima PA-C Work Phone: [facility] 01-27-2025 13:08-0400 Heart rate 98 /min Mishel Neelima PA-C Work Phone: [facility] 01-27-2025 13:08-0400 Systolic blood pressure 134 mm[Hg] Mishel Neelima PA-C Work Phone: [facility] 11-11-2024 10:18-0400 Body height 175.3 cm Leticia Hylton DO Work Phone: [facility] 11-11-2024 10:18-0400 Body mass index (BMI) [Ratio] 25.07 kg/m2 Leticia Hylton DO Work Phone: [facility] 11-11-2024 10:18-0400 Body weight 77 kg Leticia Hylton DO Work Phone: [facility] 11-11-2024 10:18-0400 Diastolic [...] 77.56 kg Jason Paredes MD Work Phone: [place] [id number] 11:25-0500 Diastolic blood pressure 68 mm[Hg] Jason [...] 100 mm[Hg] Kvng Lewis MD Work Phone: [facility] 12-13-2023 15:12-0400 Body weight 77.11 kg Jessica [place] [employer] Work Phone: [facility] 12-13-2023 15:12-0400 Diastolic blood pressure 87 mm[Hg] Jessica [place] [employer] Work Phone: [facility] 12-13-2023 15:12-0400 Heart rate 80 /min Jessica [place] [employer] Work Phone: [facility] 12-13-2023 15:12-0400 Respiratory rate 16 /min Jessica [place] [employer] Work Phone: [facility] 12-13-2023 15:12-0400 Systolic blood pressure 139 mm[Hg] Jessica Guerrero APRN.CNP Work Phone: [facility] 12-07-2023 17:30-0400 Body height 175.26 cm No Primary Care Physician [facility] 12-07-2023 17:30-0400 Body temperature 97.1 [degF] No Primary Care Physician [facility] 12-07-2023 17:30-0400 Diastolic blood pressure 70 mm[Hg] No Primary Care Physician [facility] 12-07-2023 17:30-0400 Heart rate 68 /min No Primary Care Physician [facility] 12-07-2023 17:30-0400 Respiratory rate 15 /min No Primary Care Physician [facility] 12-07-2023 17:30-0400 SaO2% (BldA) [Mass fraction] 98 % No Primary Care Physician [facility] 12-07-2023 17:30-0400 Systolic blood pressure 130 mm[Hg] No Primary Care Physician [facility] 10-25-2023 22:04-0500 Body temperature 97.4 [degF] No Primary Care Physician [facility] 10-25-2023 22:04-0500 Diastolic blood pressure 64 mm[Hg] No Primary Care Physician [facility] 10-25-2023 22:04-0500 Heart rate 77 /min No Primary Care Physician [facility] 10-25-2023 22:04-0500 Respiratory rate 19 /min No Primary Care Physician [facility] 10-25-2023 22:04-0500 SaO2% (BldA) [Mass fraction] 100 % No Primary Care Physician [facility] 10-25-2023 22:04-0500 Systolic blood pressure 117 mm[Hg] No Primary Care Physician [facility] 10-25-2023 17:12-0500 Body mass index (BMI) [Ratio] 23.3 kg/m2 No Primary Care Physician [facility] 10-25-2023 17:12-0500 Body weight 71.7 kg No Primary Care Physician [facility] 10-25-2023 16:24-0500 Body height 175.26 cm No Primary Care Physician [facility] 10-18-2023 10:00-0500 Diastolic blood pressure 71 mm[Hg] No Primary Care Physician [facility] 10-18-2023 10:00-0500 Heart rate 62 /min No Primary Care Physician [facility] 10-18-2023 10:00-0500 Respiratory rate 16 /min No Primary Care Physician [facility] 10-18-2023 10:00-0500 SaO2% (BldA) [Mass fraction] 99 % No Primary Care Physician [facility] 10-18-2023 10:00-0500 Systolic blood pressure 115 mm[Hg] No Primary Care Physician [facility] 10-18-2023 08:00-0500 Body temperature 97.9 [degF] No Primary Care Physician [facility] 10-18-2023 05:28-0500 Body mass index (BMI) [Ratio] 24.6 kg/m2 No Primary Care Physician [facility] 10-18-2023 05:28-0500 Body weight 75.6 kg No Primary Care Physician [facility] 10-17-2023 15:25-0500 Body height 175.26 cm No Primary Care Physician [facility] 10-17-2023 11:51-0500 Body temperature 97.6 [degF] No Primary Care Physician [facility] 10-17-2023 11:51-0500 Diastolic blood pressure 58 mm[Hg] No Primary Care Physician [facility] 10-17-2023 11:51-0500 Heart rate 85 /min No Primary Care Physician [facility] 10-17-2023 11:51-0500 Respiratory rate 18 /min No Primary Care Physician [facility] 10-17-2023 11:51-0500 SaO2% (BldA) [Mass fraction] 98 % No Primary Care Physician [facility] 10-17-2023 11:51-0500 Systolic blood pressure 116 mm[Hg] No Primary Care Physician [facility] 10-17-2023 09:57-0500 Body height 175.26 cm No Primary Care Physician [facility] 10-17-2023 09:57-0500 Body mass index (BMI) [Ratio] 24.7 kg/m2 No Primary Care Physician [facility] 10-17-2023 09:57-0500 Body weight 76.2 kg No Primary Care Physician [facility] 09-25-2023 11:05-0500 Body temperature 97.6 [degF] No Primary Care Physician [facility] 09-25-2023 11:05-0500 Heart rate 76 /min No Primary Care Physician [facility] 09-25-2023 11:05-0500 Respiratory rate 14 /min No Primary Care Physician [facility] 09-25-2023 11:05-0500 SaO2% (BldA) [Mass fraction] 99 % No Primary Care Physician [facility] 09-25-2023 08:08-0500 Body mass index (BMI) [Ratio] 24.1 kg/m2 No Primary Care Physician [facility] 09-25-2023 08:08-0500 Body weight 74.19 kg No Primary Care Physician [facility] 09-25-2023 08:08-0500 Diastolic blood pressure 79 mm[Hg] No Primary Care Physician [facility] 09-25-2023 08:08-0500 Systolic blood pressure 140 mm[Hg] No Primary Care Physician [facility] 09-24-2023 20:19-0500 Body temperature 97 [degF] No Primary Care Physician [facility] 09-24-2023 20:19-0500 Diastolic blood pressure 66 mm[Hg] No Primary Care Physician [facility] 09-24-2023 20:19-0500 Heart rate 96 /min No Primary Care Physician [facility] 09-24-2023 20:19-0500 Respiratory rate 16 /min No Primary Care Physician [facility] 09-24-2023 20:19-0500 SaO2% (BldA) [Mass fraction] 97 % No Primary Care Physician [facility] 09-24-2023 20:19-0500 Systolic blood pressure 125 mm[Hg] No Primary Care Physician [facility] 09-24-2023 17:48-0500 Body height 175.26 cm No Primary Care Physician [facility] 09-24-2023 17:48-0500 Body mass index (BMI) [Ratio] 24.3 kg/m2 No Primary Care Physician [facility] 09-24-2023 17:48-0500 Body weight 74.7 kg No Primary Care Physician [facility] 09-20-2023 15:35-0500 Diastolic blood pressure 79 mm[Hg] No Primary Care Physician [facility] 09-20-2023 15:35-0500 Heart rate 79 /min No Primary Care Physician [facility] 09-20-2023 15:35-0500 Respiratory rate 16 /min No Primary Care Physician [facility] 09-20-2023 15:35-0500 SaO2% (BldA) [Mass fraction] 97 % No Primary Care Physician [facility] 09-20-2023 15:35-0500 Systolic blood pressure 107 mm[Hg] No Primary Care Physician [facility] 09-20-2023 10:21-0500 Body mass index (BMI) [Ratio] 25.9 kg/m2 No Primary Care Physician [facility] 09-20-2023 10:21-0500 Body temperature 97.9 [degF] No Primary Care Physician [facility] 09-20-2023 10:21-0500 Body weight 79.9 kg No Primary Care Physician [facility] 09-06-2023 21:32-0500 Heart rate 78 /min No Primary Care Physician [facility] 09-06-2023 21:32-0500 Respiratory rate 18 /min No Primary Care Physician [facility] 09-06-2023 21:32-0500 SaO2% (BldA) [Mass fraction] 99 % No Primary Care Physician [facility] 09-06-2023 21:30-0500 Diastolic blood pressure 72 mm[Hg] No Primary Care Physician [facility] 09-06-2023 21:30-0500 Systolic blood pressure 118 mm[Hg] No Primary Care Physician [facility] 09-06-2023 18:31-0500 Body mass index (BMI) [Ratio] 25.3 kg/m2 No Primary Care Physician [facility] 09-06-2023 18:31-0500 Body temperature 98.2 [degF] No Primary Care Physician [facility] 09-06-2023 18:31-0500 Body weight 77.9 kg No Primary Care Physician [facility] 08-22-2023 06:14-0500 Diastolic blood pressure 63 mm[Hg] No Primary Care Physician [facility] 08-22-2023 06:14-0500 Heart rate 64 /min No Primary Care Physician [facility] 08-22-2023 06:14-0500 Respiratory rate 16 /min No Primary Care Physician [facility] 08-22-2023 06:14-0500 SaO2% (BldA) [Mass fraction] 97 % No Primary Care Physician [facility] 08-22-2023 06:14-0500 Systolic blood pressure 99 mm[Hg] No Primary Care Physician [facility] 08-22-2023 02:45-0500 Body height 175.26 cm No Primary Care Physician [facility] 08-22-2023 02:45-0500 Body mass index (BMI) [Ratio] 26.4 kg/m2 No Primary Care Physician [facility] 08-22-2023 02:45-0500 Body temperature 98.7 [degF] No Primary Care Physician [facility] 08-22-2023 02:45-0500 Body weight 81.2 kg No Primary Care Physician [facility] 08-10-2023 08:00-0500 Body temperature 98.1 [degF] No Primary Care Physician [facility] 08-10-2023 08:00-0500 Diastolic blood pressure 71 mm[Hg] No Primary Care Physician [facility] 08-10-2023 08:00-0500 Heart rate 65 /min No Primary Care Physician [facility] 08-10-2023 08:00-0500 Respiratory rate 15 /min No Primary Care Physician [facility] 08-10-2023 08:00-0500 SaO2% (BldA) [Mass fraction] 97 % No Primary Care Physician [facility] 08-10-2023 08:00-0500 Systolic blood pressure 109 mm[Hg] No Primary Care Physician [facility] 08-10-2023 05:07-0500 Body mass index (BMI) [Ratio] 25.9 kg/m2 No Primary Care Physician [facility] 08-10-2023 05:07-0500 Body weight 79.9 kg No Primary Care Physician [facility] 08-07-2023 10:46-0500 Body height 175.26 cm No Primary Care Physician [facility] 08-07-2023 00:45-0500 Diastolic blood pressure 41 mm[Hg] No Primary Care Physician [facility] 08-07-2023 00:45-0500 Heart rate 114 /min No Primary Care Physician [facility] 08-07-2023 00:45-0500 Respiratory rate 18 /min No Primary Care Physician [facility] 08-07-2023 00:45-0500 SaO2% (BldA) [Mass fraction] 99 % No Primary Care Physician [facility] 08-07-2023 00:45-0500 Systolic blood pressure 136 mm[Hg] No Primary Care Physician [facility] 08-06-2023 21:33-0500 Body height 175.26 cm No Primary Care Physician [facility] 08-06-2023 21:33-0500 Body mass index (BMI) [Ratio] 25.9 kg/m2 No Primary Care Physician [facility] 08-06-2023 21:33-0500 Body temperature 97.8 [degF] No Primary Care Physician [facility] 08-06-2023 21:33-0500 Body weight 79.8 kg No Primary Care Physician [facility] 08-06-2023 14:00-0500 Respiratory rate 16 /min No Primary Care Physician [facility] 08-06-2023 08:53-0500 Body height 175.26 cm No Primary Care Physician [facility] 08-06-2023 08:53-0500 Body mass index (BMI) [Ratio] 26.3 kg/m2 No Primary Care Physician [facility] 08-06-2023 08:53-0500 Body temperature 97.6 [degF] No Primary Care Physician [facility] 08-06-2023 08:53-0500 Body weight 80.8 kg No Primary Care Physician [facility] 08-06-2023 08:53-0500 Diastolic blood pressure 83 mm[Hg] No Primary Care Physician [facility] 08-06-2023 08:53-0500 Heart rate 115 /min No Primary Care Physician [facility] 08-06-2023 08:53-0500 SaO2% (BldA) [Mass fraction] 97 % No Primary Care Physician [facility] 08-06-2023 08:53-0500 Systolic blood pressure 126 mm[Hg] No Primary Care Physician [facility] 06-26-2023 02:56-0400 Diastolic blood pressure 48 mm[Hg] No Primary Care Physician [facility] 06-26-2023 02:56-0400 Systolic blood pressure 96 mm[Hg] No Primary Care Physician [facility] 06-26-2023 01:13-0400 Heart rate 80 /min No Primary Care Physician [facility] 06-26-2023 01:13-0400 Respiratory rate 18 /min No Primary Care Physician [facility] 06-26-2023 01:13-0400 SaO2% (BldA) [Mass fraction] 97 % No Primary Care Physician [facility] 06-25-2023 23:14-0400 Body height 175.26 cm No Primary Care Physician [facility] 06-25-2023 23:14-0400 Body mass index (BMI) [Ratio] 26.5 kg/m2 No Primary Care Physician [facility] 06-25-2023 23:14-0400 Body temperature 97.4 [degF] No Primary Care Physician [facility] 06-25-2023 23:14-0400 Body weight 81.6 kg No Primary Care Physician [facility] 06-25-2023 11:37-0400 Heart rate 82 /min No Primary Care Physician [facility] 06-25-2023 11:37-0400 Respiratory rate 16 /min No Primary Care Physician [facility] 06-25-2023 11:37-0400 SaO2% (BldA) [Mass fraction] 97 % No Primary Care Physician [facility] 06-25-2023 08:21-0400 Body height 175.01 cm No Primary Care Physician [facility] 06-25-2023 08:21-0400 Body mass index (BMI) [Ratio] 25.8 kg/m2 No Primary Care Physician [facility] 06-25-2023 08:21-0400 Body temperature 97.4 [degF] No Primary Care Physician [facility] 06-25-2023 08:21-0400 Body weight 79.06 kg No Primary Care Physician [facility] 06-25-2023 08:21-0400 Diastolic blood pressure 45 mm[Hg] No Primary Care Physician [facility] 06-25-2023 08:21-0400 Systolic blood pressure 136 mm[Hg] No Primary Care Physician [facility] 05-31-2023 15:02-0400 Body weight 78.47 kg Jessica [place] [employer] Work Phone: [facility] 05-31-2023 15:02-0400 Diastolic blood pressure 60 mm[Hg] Jessica [place] [employer] Work Phone: [facility] 05-31-2023 15:02-0400 Heart rate 91 /min Jessica [place] [employer] Work Phone: [facility] 05-31-2023 15:02-0400 Respiratory rate 18 /min Jessica [place] [employer] Work Phone: [facility] 05-31-2023 15:02-0400 Systolic blood pressure 92 mm[Hg] Jessica [place] [employer] Work Phone: [facility] 05-03-2023 09:00-0400 Respiratory rate 16 /min No Primary Care Physician [facility] 05-03-2023 04:23-0400 Body height 175.26 cm No Primary Care Physician [facility] 05-03-2023 04:23-0400 Body mass index (BMI) [Ratio] 26.9 kg/m2 No Primary Care Physician [facility] 05-03-2023 04:23-0400 Body temperature 97.7 [degF] No Primary Care Physician [facility] 05-03-2023 04:23-0400 Body weight 82.8 kg No Primary Care Physician [facility] 05-03-2023 04:23-0400 Diastolic blood pressure 68 mm[Hg] No Primary Care Physician [facility] 05-03-2023 04:23-0400 Heart rate 89 /min No Primary Care Physician [facility] 05-03-2023 04:23-0400 SaO2% (BldA) [Mass fraction] 97 % No Primary Care Physician [facility] 05-03-2023 04:23-0400 Systolic blood pressure 121 mm[Hg] No Primary Care Physician [facility] 04-29-2023 14:12-0400 Body temperature 98.3 [degF] No Primary Care Physician [facility] 04-29-2023 14:12-0400 Diastolic blood pressure 61 mm[Hg] No Primary Care Physician [facility] 04-29-2023 14:12-0400 Heart rate 62 /min No Primary Care Physician [facility] 04-29-2023 14:12-0400 Respiratory rate 18 /min No Primary Care Physician [facility] 04-29-2023 14:12-0400 SaO2% (BldA) [Mass fraction] 98 % No Primary Care Physician [facility] 04-29-2023 14:12-0400 Systolic blood pressure 132 mm[Hg] No Primary Care Physician [facility] 04-28-2023 12:55-0400 Body height 175.26 cm No Primary Care Physician [facility] 04-28-2023 12:55-0400 Body weight 78.69 kg No Primary Care Physician [facility] 04-27-2023 17:02-0400 Body mass index (BMI) [Ratio] 25.6 kg/m2 No Primary Care Physician [facility] 04-27-2023 16:45-0400 Diastolic blood pressure 61 mm[Hg] [facility] 04-27-2023 16:45-0400 Respiratory rate 18 /min [facility] 04-27-2023 16:45-0400 Systolic blood pressure 118 mm[Hg] [facility] 04-27-2023 16:13-0400 Body temperature 97.8 [degF] [facility] 04-27-2023 16:13-0400 Heart rate 90 /min [facility] 04-27-2023 13:23-0400 SaO2% (BldA) [Mass fraction] 96 % [facility] 04-27-2023 09:26-0400 Body height 175.01 cm [facility] 04-27-2023 09:26-0400 Body mass index (BMI) [Ratio] 28.1 kg/m2 [facility] 04-27-2023 09:26-0400 Body weight 86.2 kg [facility] 04-26-2023 23:47-0400 Respiratory rate 22 /min [facility] 04-26-2023 22:00-0400 Heart rate 81 /min [facility] 04-26-2023 22:00-0400 SaO2% (BldA) [Mass fraction] 97 % [facility] 04-26-2023 21:29-0400 Diastolic blood pressure 82 mm[Hg] [facility] 04-26-2023 21:29-0400 Systolic blood pressure 115 mm[Hg] [facility] 04-26-2023 20:25-0400 Body height 175.26 cm [facility] 04-26-2023 20:25-0400 Body mass index (BMI) [Ratio] 25.4 kg/m2 [facility] 04-26-2023 20:25-0400 Body temperature 98.6 [degF] [facility] 04-26-2023 20:25-0400 Body weight 78.21 kg [facility] 04-23-2023 13:00-0400 Respiratory rate 16 /min [facility] 04-23-2023 11:40-0400 Heart rate 52 /min [facility] 04-23-2023 08:33-0400 Body mass index (BMI) [Ratio] 26.9 kg/m2 [facility] 04-23-2023 08:33-0400 Body temperature 97.6 [degF] [facility] 04-23-2023 08:33-0400 Body weight 82.6 kg [facility] 04-23-2023 08:33-0400 Diastolic blood pressure 77 mm[Hg] [facility] 04-23-2023 08:33-0400 SaO2% (BldA) [Mass fraction] 96 % [facility] 04-23-2023 08:33-0400 Systolic blood pressure 123 mm[Hg] [facility] 03-22-2023 11:23-0400 Body temperature 98.1 [degF] Benito Jewell MD Work Phone: [facility] 03-22-2023 11:23-0400 Diastolic blood pressure 72 mm[Hg] Benito Jewell MD Work Phone: [facility] 03-22-2023 11:23-0400 Heart rate 61 /min Benito Jewell MD Work Phone: [facility] 03-22-2023 11:23-0400 Respiratory rate 16 /min Benito Jewell MD Work Phone: [facility] 03-22-2023 11:23-0400 SaO2% (BldA) [Mass fraction] 96 % Benito Jewell MD Work Phone: [facility] 03-22-2023 11:23-0400 Systolic blood pressure 116 mm[Hg] Benito Jewell MD Work Phone: [facility] 03-20-2023 03:02-0400 Body height 175.3 cm Benito Jewell MD Work Phone: [facility] 03-20-2023 03:02-0400 Body mass index (BMI) [Ratio] 26.73 kg/m2 Benito Jewell MD Work Phone: [facility] 03-20-2023 03:02-0400 Body weight 82.1 kg Benito Jewell MD Work Phone: [facility] 01-25-2023 14:02-0400 Body weight 83.92 kg Autumn Valadez [employer] Work Phone: [facility] 01-25-2023 14:02-0400 Diastolic blood pressure 64 mm[Hg] Autumn Valadez [employer] Work Phone: [facility] 01-25-2023 14:02-0400 Heart rate 73 /min Autumn Valadez [employer] Work Phone: [facility] 01-25-2023 14:02-0400 Respiratory rate 18 /min Autumn Valadez [employer] Work Phone: [facility] 01-25-2023 14:02-0400 Systolic blood pressure 129 mm[Hg] Autumn Valadez H[employer] Work Phone: [facility] 12-08-2022 14:10-0400 Body height 175.3 cm Vivi Smith MD Work Phone: [facility] 12-08-2022 14:10-0400 Body temperature 97 [degF] Vivi Smith MD Work Phone: [facility] 12-08-2022 14:10-0400 Body weight 85 kg Vivi Smith MD Work Phone: [facility] 12-08-2022 14:10-0400 Diastolic blood pressure 86 mm[Hg] iVvi Smith MD Work Phone: [facility] 12-08-2022 14:10-0400 Heart rate 90 /min Vivi Smith MD Work Phone: [facility] [...] 09-19-2022 13:18-0500 Body temperature 97.5 [degF] Injection/[facility] 09-19-2022 13:18-0500 Diastolic blood pressure 62 mm[Hg] Injection/[facility] 09-19-2022 13:18-0500 Heart rate 50 /min [facility] 09-19-2022 13:18-0500 Respiratory rate 18 /min [facility] 09-19-2022 13:18-0500 Systolic blood pressure 123 mm[Hg] [facility] 08-16-2022 15:14-0500 Body weight 87.09 kg Autumn Valadez APRN.CNP Work Phone: [facility] 08-16-2022 15:14-0500 Diastolic blood pressure 58 mm[Hg] Autumn Valadez [employer] Work Phone: [facility] 08-16-2022 15:14-0500 Heart rate 68 /min Autumn Valadez H[employer] Work Phone: [facility] 08-16-2022 15:14-0500 SaO2% (BldA) [Mass fraction] 95 % Autumn Valadez H[employer] Work Phone: [facility] 08-16-2022 15:14-0500 Systolic blood pressure 113 mm[Hg] Autumn Valadez [employer] Work Phone: [facility] 08-05-2022 11:37-0500 Body temperature 97.2 [degF] Injection/[facility] 08-05-2022 11:37-0500 Diastolic blood pressure 70 mm[Hg] [facility] 08-05-2022 11:37-0500 Heart rate 68 /min [facility] 08-05-2022 11:37-0500 Respiratory rate 18 /min [facility] 08-05-2022 11:37-0500 Systolic blood pressure 119 mm[Hg] [facility] 06-07-2022 14:14-0400 Body height 175.3 cm Phoebe H[employer] Work Phone: [facility] 06-07-2022 14:14-0400 Body weight 82.33 kg Phoebe H[employer] Work Phone: [facility] 06-07-2022 14:14-0400 Diastolic blood pressure 70 mm[Hg] Phoebe er H[employer] P[employer]ER[employer] Work Phone: [facility] 06-07-2022 14:14-0400 Systolic blood pressure 118 mm[Hg] Phoebe Easter H[employer] P[employer] Work Phone: [facility] 04-18-2022 08:13-0400 Body height 175.3 cm Dashawn Lenz H[employer]ER[employer] Work Phone: [facility] 04-18-2022 08:13-0400 Body temperature 96.91 [degF] Dishon Kamwesa H[employer] P[employer] Work Phone: [facility] 04-18-2022 08:13-0400 Body weight 81.65 kg Dishon Kamwesa H[employer] Work Phone: [facility] 04-18-2022 08:13-0400 Diastolic blood pressure 72 mm[Hg] Dishon Kamwesa H[employer] P[employer] Work Phone: [facility] 04-18-2022 08:13-0400 Heart rate 78 /min Dishon Kamwesa H[employer] Work Phone: [facility] 04-18-2022 08:13-0400 SaO2% (BldA) [Mass fraction] 97 % Dishon Kamwesa H[employer] Work Phone: [facility] 04-18-2022 08:13-0400 Systolic blood pressure 120 mm[Hg] Dishon Kamwesa HOT PATCHER.[facility] Work Phone: [facility] 03-11-2022 12:07-0400 Body temperature 96.8 [degF] [facility] 03-11-2022 12:07-0400 Diastolic blood pressure 51 mm[Hg] [facility] 03-11-2022 12:07-0400 Heart rate 55 /min [facility] 03-11-2022 12:07-0400 Respiratory rate 16 /min [facility] 03-11-2022 12:07-0400 Systolic blood pressure 101 mm[Hg] [facility] 03-07-2022 14:00-0400 Body temperature 96.91 [degF] Injection/[facility] 03-07-2022 14:00-0400 Diastolic blood pressure 65 mm[Hg] In[facility] 03-07-2022 14:00-0400 Heart rate 83 /min [facility] 03-07-2022 14:00-0400 Respiratory rate 16 /min Injection/[facility] 03-07-2022 14:00-0400 Systolic blood pressure 124 mm[Hg] Injection/[facility] 12-28-2021 16:16-0400 Body temperature 97.88 [degF] ANITA COMER MD [facility] 12-28-2021 16:16-0400 Diastolic blood pressure 81 mm[Hg] ANITA COMER MD [facility] 12-28-2021 16:16-0400 Heart rate 78 /min ANITA COMER MD [facility] 12-28-2021 16:16-0400 Respiratory rate 20 /min ANITA COMER MD [facility] 12-28-2021 16:16-0400 Systolic blood pressure 134 mm[Hg] ANITA COMER MD [facility] 05-31-2021 20:30-0400 SaO2% (BldA) [Mass fraction] 100 % [facility] Comment on above: Order Comment: [place]: Performed By: #### L [id number] ####[facility] [id number] [place], [place] [address]Fb# [phone] Encounters Encounter Date Encounter Type Care Provider Facility Start: 05-24-2025 ambulatory Zebulun Beam VSC Facili ty:[facility] Start: 05-21-2025 End: 05-21-2025 ambulatory Zebulun Beam VSC Facility:[facility] Start: 05-03-2025 End: 05-05-2025 Evaluation and management of inpatient David Watson Luis Facility:[facility] Start: 05-03-2025 ambulatory Vita Jefferson Facility :[facility] Start: 03-31-2025 End: 03-31-2025 ambulatory Zebulun Beam VSC Facility:[facility] Start: 03-17-2025 End: 03-19-2025 Evaluation and management of inpatient Zebulun Beam VSC Facility:[facility] Start: 03-17-2025 ambulatory Vita Jefferson Facility :[facility] Start: 03-06-2025 ambulatory Dangelo Encarnacion Fac ility:[facility] Start: 03-06-2025 End: 03-08-2025 Evaluation and management of inpatient Dangelo Encarnacion Facility:[facility] Start: 03-05-2025 End: 03-05-2025 ambulatory Truman Gee Facility:[facility] Start: 02-25-2025 End: 02-25-2025 ambulatory Zebulun Beam VSC Facility:[facility] Start: 02-18-2025 ambulatory Ileana Lobo Facility:[facility] Start: 02-18-2025 End: 02-19-2025 Evaluation and management of inpatient Ileana Lobo Facility:[facility] Start: 02-03-2025 End: 02-03-2025 ambulatory Zebulun Beam VSC Facility:[facility] Start: 01-27-2025 End: 01-27-2025 Office outpatient visit 25 minutes Mishel Ortez PA-C Work Phone: [facility] [employer] Comment on above: Psoriasis vulgaris ( Primary Dx); Folliculitis; Multiple benign melanocytic nevi of both upper extremities, both lower extremities, and trunk; Seborrheic keratosis; Solar lentigo; Dermatofibroma; Cody angioma; Screening for viral disease; Encounter for screening for respiratory tuberculosis; Encounter for long-term (current) use of medications Start: 01-27-2025 End: 01-27-2025 ambulatory MISHEL NEELIMA [facility] Start: 01-22-2025 ambulatory Vita Jefferson Facility :[facility] Start: 01-22-2025 End: 01-26-2025 Evaluation and management of inpatient David Smith Facility:[facility] Start: 01-08-2025 End: 01-08-2025 ambulatory Zebulun Beam VSC Facility:[facility] Start: 01-07-2025 End: 01-08-2025 Refill Mishel Ortez PA-C Work Phone: [facility] [place] Start: 12-25-2024 End: 12-25-2024 ambulatory Jaime Barbour VSC Facility:[facility] Start: 12-19-2024 End: 12-23-2024 Telephone encounter Manasa Cantu PA-C Work Phone: [facility] Comment on above: Appointment Request (rayray) Start: 12-14-2024 End: 12-16-2024 ambulatory John Knapp Facility:[facility] Start: 11-28-2024 End: 11-28-2024 ambulatory Brit Ruiz VSC Facility:[facility] Start: 11-11-2024 End: 11-11-2024 Telephone encounter Leticia Hylton DO Work Phone: Gastroenterology Start: 11-11-2024 End: 11-11-2024 Subsequent hospital visit by physician [facility] Comment on above: Chronic idiopathic c onstipation [K59.04] Start: 11-11-2024 End: 11-11-2024 ambulatory LETICIA HYLTON Facility:[facility] Start: 11-11-2024 End: 11-11-2024 Patient encounter procedure Leticia Hylton DO Work Phone: Gastroenterology Comment on above: Chronic idiopathic c onstipation (Primary Dx); Abdominal pain, suprapubic Start: 11-05-2024 ambulatory Kenyetta Suarez Facility:[facility] Start: 11-05-2024 End: 11-06-2024 Evaluation and management of inpatient Kenyetta Suarez Facility:[facility] Start: 11-05-2024 End: 11-05-2024 Telephone encounter Leticia Hylton DO Work Phone: Gastroenterology Comment on above: Patient states elbertin g major issues Start: 11-03-2024 End: 11-04-2024 Emergency department patient visit Sergey Janel Facility:[facility] Start: 10-18-2024 End: 10-21-2024 ambulatory Ramya Lombardo Facility:[facility] Start: 10-02-2024 End: 10-10-2024 Telephone encounter Jessica Guerrero APRN.CNP Work Phone: Endocrinology Comment on above: Forms Start: 09-02-2024 End: 09-02-2024 Emergency department patient visit Rm Chirinos Facility:[facility] Start: 09-02-2024 End: 09-02-2024 ambulatory Leticia Hylton DO Work Phone: Gastroenterology Comment on above: Chronic idiopathic c onstipation (Primary Dx); Gastroparesis Start: 09-02-2024 End: 09-02-2024 Telemedicine consultation with patient Leticia Hylton DO Work Phone: Gastroenterology Start: 08-07-2024 End: 08-07-2024 Telephone encounter Manasa Cantu PA-C Work Phone: [facility] Comment on above: Prior Authorization (Skyrizi renewal) Start: 08-02-2024 ambulatory Vamsi Duvall Facili ty:[facility] Start: 08-02-2024 End: 08-03-2024 Evaluation and management of inpatient Vamsi Duvall Facility:[facility] Start: 08-01-2024 End: 08-01-2024 Emergency department patient visit Olvin Ibarra Facility:[facility] Start: 2024 End: 08-06-2024 ambulatory Edie Radhajaye Facility:[facility] Start: 07-23-2024 End: 07-23-20[facility] Start: 07-23-2024 End: 07-23-2024 Nursing evaluation [...] Phone: Endocrinology Start: 07-11-2024 End: 07-27-2024 ambulatory [facility] Facility:[facility] Start: 07-10-2024 End: 07-10-2024 ambulatory [facility] Facility:[facility] Start: 07-10-2024 End: 07-10-2024 ambulatory [facility] Facility:[facility] Start: 07-10-2024 End: 07-10-2024 Patient [...] [facility] Start: 06-28-2024 End: 07-05-2024 ambulatory [facility] Facility:[facility] Start: 06-24-2024 End: 06-25-2024 Telephone encounter Jessica Guerrero APRN.CNP Work Phone: [facility] [place] Comment on above: diabetic supplies Start: 06-17-2024 End: 06-17-2024 Telephone encounter Kvng Lewis MD Work Phone: Endocrinology Comment on above: Forms Start: 06-07-2024 ambulatory Ileana Lobo Facility:[facility] Start: 06-07-2024 End: 06-11-2024 Evaluation and management of inpatient Ileana Lobo Facility:[facility] Start: 05-16-2024 End: 05-24-2024 Telephone encounter Jessica Guerrero APRN.CNP Work Phone: Endocrinology Comment on above: insulin pump Start: 05-06-2024 End: 05-06-2024 Telephone encounter Leesa Kandiceel PA-C Work Phone: [facility] Comment on above: Prior Authorization (Skyrizi renewal) Start: 04-16-2024 End: 04-16-2024 Refill Leesa Mapel PA-C Work Phone: [facility] Start: 04-08-2024 Refill Jessica Guerrero APRN.SHORE [employer]EDGE [employer] BARGE Work Phone: Internal Medicine [place] Comment on above: Refill Request Start: 03-12-2024 End: 03-12-2024 ambulatory [facility] Facility:[facility] Start: 03-12-2024 End: 03-12-2024 Patient [...] Telephone encounter Leesa Woodsonel PA-C Work Phone: [facility] Comment on above: Medication Problem ( Skyrizi) Start: 12-15-2023 ambulatory Kyara Wu [employer]ofer Applicator Comment on above: Primary Care Coordin ator Chronic Care Start: 12-13-2023 End: 12-13-2023 ambulatory [facility] Facility:[facility] Start: 12-13-2023 End: 12-13-2023 Patient encounter procedure Jessica Guerrero APRN.[employer] Work Phone: Endocrinology Comment on above: Type 1 diabetes kasi itus with hyperglycemia, with long-term current use of insulin (HCC) (Primary Dx); Insulin pump status Start: 12-07-2023 End: 12-07-2023 Emergency department patient visit No [facility]: Start: 11-14-2023 End: 11-14-2023 Office outpatient visit 15 minutes Leesa Huddleston PA-C Work Phone: [facility] Comment on above: Psoriasis vulgaris ( Primary Dx); Multiple benign nevi Start: 11-10-2023 Patient Outreach Kyara Wu Roofer Applicator Comment on above: Transition Of Care Start: 11-03-2023 Patient Outreach Kyara Wu Roofer Applicator Comment on above: Transition Of Care Start: 10-27-2023 Patient Outreach Kyara Wu Roofer Applicator Comment on above: Transition Of Care Start: 10-25-2023 End: 10-25-2023 Emergency department patient visit No Primary Care Physician [facility] Work Phone: Start: 10-20-2023 Patient Outreach Kyara Wu Roofer Applicator Comment on above: Transition Of Care Start: 10-19-2023 [facility] Out[facility] Comment on above: Transition Of Care ( Message) Start: 10-18-2023 Non-patient / Non-visit No [facility] Physician [facility] Work Phone: Start: 10-17-2023 End: 10-18-2023 Evaluation and management of inpatient No Primary Care Physician [facility] Work Phone: Start: 10-12-2023 ambulatory Kyara Wu Roofer Applicator Comment on above: Primary Care Coordin ator Chronic Care Start: 10-02-2023 Telephone encounter Kvng Brink MD Work Phone: Endocrinology Comment on above: Forms (DME: [employer] for pump supplies) Start: 09-29-2023 ambulatory Kyara Wu Roofer Applicator Comment on above: Primary Care Coordin ator Chronic Care Start: 09-25-2023 End: 09-25-2023 Emergency department patient visit No Primary Care Physician [facility] Work Phone: Start: 09-24-2023 End: 09-24-2023 Emergency department patient visit No [facility]: Start: 09-21-2023 Refill Vivi Smith MD Work Phone: Internal Medicine [place] Comment on above: Refill Request Start: 09-20-2023 End: 09-20-2023 Emergency department patient visit No Primary Care Physician [facility] Work Phone: Start: 09-06-2023 End: 09-06-2023 Emergency department patient visit No [facility] Work [facility]: Start: 08-22-2023 End: 08-22-2023 Emergency department patient visit No Primary Care Physician [facility] Work Phone: Start: 08-17-2023 Telephone encounter Leesa Huddleston PA-C Work Phone: [facility] Start: 08-15-2023 Patient Outreach Kyara garza RN [facility] Roofer Applicator Comment on above: Transition Of Care Start: 08-10-2023 Non-patient / Non-visit No [facility] Physician [facility] Inpatient Physicians Work Phone: Start: 08-09-2023 Non-patient / Non-visit No [facility] Physician [facility] Work Phone: Start: 08-08-2023 Non-patient / Non-visit No [facility] Physician [facility] Inpatient Physicians Work Phone: Start: 08-07-2023 End: 08-10-2023 Evaluation and management of inpatient No [facility] Work Phone: Start: 08-06-2023 End: 08-06-2023 Emergency department patient visit No Primary Care Physician [facility] Work Phone: Start: 06-25-2023 End: 06-26-2023 Emergency department patient visit No Primary Care Physician [facility] Work Phone: Start: 06-25-2023 End: 06-25-2023 Emergency department patient visit No Primary Care Physician [facility] Work Phone: Start: 05-31-2023 End: 05-31-2023 Patient encounter procedure Jessica Josue HICKSN.[employer]ED[employer] BARGE Work Phone: Endocrinology Comment on above: Type 1 diabetes kasi itus with hyperglycemia, with long-term current use of insulin (HCC) (Primary Dx); Insulin pump status Start: 05-03-2023 End: 05-03-2023 Emergency department patient visit No Primary Care Physician [facility] Work Phone: Start: 05-02-2023 Enedina swain PA-C Work Phone: [facility] Comment on above: Psoriasis vulgaris ( Primary Dx) Start: 04-29-2023 Non-patient / Non-visit No [facility] Phys[facility] Work Phone: Start: 04-28-2023 Non-patient / Non-visit No [facility] Phys[facility] Work Phone: Start: 04-27-2023 Non-patient / Non-visit No [facility] Physician [facility] Work Phone: Start: 04-27-2023 End: 04-29-2023 Evaluation and management of inpatient [facility] 3 Work Phone: Start: 04-27-2023 End: 04-29-2023 observation encounter No Primary Care Physician [facility] Work Phone: Start: 04-26-2023 End: 04-26-2023 Emergency department patient visit [facility] Work Phone: Start: 04-23-2023 End: 04-23-2023 Emergency department patient visit [facility] Work Phone: Start: 04-06-2023 End: 04-06-2023 Emergency department patient visit VIVI SMITH Facility:[id number] Start: 03-20-2023 End: 03-22-2023 ambulatory BENITO JEWELL [facility] Start: 03-20-2023 End: 03-22-2023 Emergency department patient visit Mariel Gagnon MD Work Phone: [facility] Start: 02-15-2023 Patient encounter procedure [facility] Department Start: 02-08-2023 Patient Outreach Kyara garza RN [facility] Roofer Applicator Comment on above: Transition Of Care Start: 02-01-2023 Telephone encounter Vivi Smith MD Work Phone: [facility] Primary Comment on above: Results Start: 01-31-2023 End: 02-04-2023 Evaluation and management of inpatient VIVI SMITH Facility:[id number] Start: 01-25-2023 End: 01-25-2023 ambulatory VIVI SMITH Facility:[id number] Start: 01-25-2023 End: 01-25-2023 Patient encounter procedure Autumn Valadez APRN.CNP Work Phone: Endocrinology Comment on above: Type 1 diabetes kasi itus with hyperglycemia, with long-term current use of insulin (HCC) (Primary Dx); Insulin pump status; Screening for diabetic retinopathy Start: 01-25-2023 End: 01-25-2023 Nursing evaluation of patient and report Nurse Laura Rg Work Phone: [facility] Primary Comment on above: Left flank pain (Elaine ten Dx); Dysuria Start: 01-24-2023 Telephone encounter Vivi Smith MD Work Phone: [facility] Primary Comment on above: Orders Results Appointment Start: 01-20-2023 End: 01-20-2023 ambulatory VIVI SMITH Facility:[id number] Start: 01-12-2023 End: 01-13-2023 ambulatory MADONNA TORO Facility:[id number] Start: 01-09-2023 E-mail encounter fro m caregiver Phoebe Fisherlorenaloni HOT PATCHER.[employer]ED[employer] BARGE Work Phone: [facility] Start: 01-09-2023 Patient encounter procedure Phoebe Fisherlorenaloni HOT PATCHER.[employer] BARGE Work Phone: Obstetrics and Gynecology Comment on above: Request an Appointme nt Start: 01-03-2023 Telephone encounter Kvng Brink MD Work Phone: Endocrinology Comment on above: Forms Start: 12-09-2022 Telephone encounter Vivi mSith MD Work Phone: [facility] Comment on above: Patient Question Start: 12-08-2022 End: 12-08-2022 Office outpatient new 30 minutes Vivi Smith MD Work Phone: [facility] Comment on above: Gastroparesis due to DM (HCC) (Primary Dx); Aortic root aneurysm (HCC); Primary hypertension; Chronic nausea; 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); Marfan syndrome; PTSD (post-traumatic stress disorder); Generalized abdominal pain Start: 11-07-2022 End: 11-07-2022 Patient encounter procedure Abelardo La MD Work Phone: [facility] [place] Comment on above: Viral conjunctivitis (Primary Dx) Start: 11-04-2022 Refill Leesatavares swain PA-C Work Phone: [facility] Start: 11-02-2022 Telephone encounter Kvng Brink MD Work Phone: Endocrinology Comment on above: Forms Start: 10-31-2022 Telephone encounter Kvng Brink MD Work Phone: Endocrinology Comment on above: Insurance Authorizat ion; Forms Start: 10-22-2022 End: 10-22-2022 Patient encounter procedure Abelardo La MD Work Phone: [facility] Comment on above: Lower abdominal pain (Primary Dx) Start: 10-04-2022 End: 10-04-2022 Office outpatient visit 25 minutes Leesa Huddleston PA-C Work Phone: D[facility]atology [place] Comment on above: Psoriasis vulgaris ( Primary Dx); Folliculitis; Encounter for long-term current use of high risk medication; Screening for viral disease Start: 09-19-2022 End: 09-19-2022 ambulatory Injection/Port [facility] Comment on above: Type 1 diabetes kasi itus with other specified complication (HCC) (Primary Dx) Start: 09-06-2022 Telephone encounter Autumn peralta APRN.[employer] BARGE Work Phone: Endocrinology Comment on above: Medication Problem Start: 08-16-2022 End: 08-16-2022 Patient encounter procedure Autumn Valadez APRN.[employer] BARGE Work Phone: Endocrinology Comment on above: Type 1 diabetes kasi itus with hyperglycemia, with long-term current use of insulin (HCC) (Primary Dx); Insulin pump status Start: 08-05-2022 End: 08-05-2022 ambulatory [facility] Comment on above: Type [...] Kvng Lewis MD Work Phone: [facility] Start: 07-06-2022 Telephone encounter Kvng Brink MD Work Phone: Endocrinology Comment on above: Appointment Start: 06-13-2022 Telephone encounter Tawanda soto DO Work Phone: Endocrinology Comment on above: Rodrigue MONIQUE for insu bill pump/pump supplies Start: 06-07-2022 End: 06-07-2022 Patient encounter procedure Phoebe Rober Mckeon HOT PATCHER.[employer] BARGE Work Phone: Obstetrics and Gynecology Comment on above: Gonorrhea (Primary D x); Screen for sexually transmitted diseases Start: 06-07-2022 Telephone encounter Cyndy walker MD Work Phone: Endocrinology Comment on above: Forms ([facility]) Start: 05-13-2022 ambulatory Tawanad Khoury DO Work Phone: Endocrinology Comment on above: Pump Data/30 day glu cose logs Start: 05-13-2022 E-mail encounter fro m caregiver Tawanda Khoury DO Work Phone: [facility] Start: 05-12-2022 End: 05-12-2022 Nursing evaluation of patient and report Nurse Patient Advocate [facility] Work Phone: Obstetrics and Gynecology Comment on above: Gonorrhea (Primary D x) Start: 05-10-2022 ambulatory Phoebe Richter Shayla eid HOT PATCHER.SH[employer]ED[employer] BARGE Work Phone: Obstetrics and Gynecology Comment on above: Question regarding S YPHILIS TOTAL W/REFLEX Start: 05-10-2022 Telephone encounter Phoebe conde HOT PATCHER.[employer] BARGE Work Phone: Obstetrics and Gynecology Comment on above: Results; Orders Start: 05-02-2022 Refill Tawanda Khoury DO Work Phone: Endocrinology Comment on above: Refill Request Refill Request (Darcy ess) Start: 04-18-2022 End: 04-18-2022 Patient encounter procedure Dashawn Cain HOT PATCHER.SHORE [employer]ED[employer] BARGE Work Phone: [facility] Comment on above: Menstrual irregulari ty (Primary Dx); Screening for STD (sexually transmitted disease); Chronic nausea Start: 03-11-2022 End: 03-11-2022 ambulatory Chair 9 [facility] Comment on above: Type 1 diabetes kasi itus with other specified complication (HCC) (Primary Dx) Start: 03-10-2022 Refill Dashawn Cain APRN.SHORE [employer]ED[employer] BARGE Work Phone: [facility] Start: 03-07-2022 End: 03-07-2022 ambulatory Injection/Port [facility] [place] Comment on above: Type 1 diabetes kasi itus with other specified complication (HCC) (Primary Dx) Start: 03-01-2022 Chart abstracting Jayjay cobb MD Work Phone: Infusion Center Start: 01-29-2022 End: 01-29-2022 Subsequent hospital visit by physician Sourav Butts MD Work Phone: [facility] Comment on above: DKA,TYPE 1 Start: 01-27-2022 End: 01-27-2022 Subsequent hospital visit by physician Dashawn Cain APRN.[employer] BARGE Work Phone: [facility] Comment on above: E10.9 Start: 12-31-2021 Telephone encounter Tawanda soto DO Work Phone: Endocrinology Comment on above: [facility] Medical office n otes request/CGM Data Start: 12-28-2021 End: 12-28-2021 Subsequent hospital visit by physician Alysha Bishop DO Work Phone: [facility] Comment on above: GASTROPARESIS, INTRA CTABLE NAUSEA AND VOMITING Start: 12-28-2021 End: 12-28-2021 Emergency department patient visit ANITA COMER MD [facility] Start: 12-27-2021 End: 12-27-2021 Subsequent hospital [...] 02-24-2017 Emergency department patient visit [facility] Start: 12-05-2014 Patient encounter status [facility] Provider [facility] Procedures Date Procedure Procedure Detail Performing Clinician Start: 11-11-2024 Radiologic exam abdo men 1 view Leticia Hylton DO Work Phone: Start: 07-10-2024 Microscopic observat ion [Identifier] in Cervix by Cyto stain Manasa Cantu PA-C Work Phone: Start: 03-12-2024 Hemoglobin A1c/Hemoglobin.total in Blood Kvng Lewis MD Work Phone: Start: 12-13-2023 Hemoglobin A1c/Hemoglobin.total in Blood Jessica [place] HOT PATCHER.SHORE HAND [employer]EDGE [employer] BARGE Work Phone: Start: 09-24-2023 Plain chest X-ray [...] Start: 05-31-2023 Hemoglobin A1c/Hemoglobin.total in Blood Jessica [place] HOT PATCHER.SHORE HAND [employer]EDGE [employer] BARGE Work Phone: Start: 04-28-2023 Urine culture No [...] MD Work Phone: Start: 03-20-2023 Glucose measurement [facility] tammy Ireland MD Work Phone: [...] 01-25-2023 Hemoglobin A1c/Hemoglobin.total in Blood Autumn Valadez HOT PATCHER.SH[employer]ED[employer] BARGE Work Phone: Start: 01-25-2023 Urnls dip stick/tabl et rgnt auto w/o microscopy Vivi Smith MD Work Phone: Start: 08-16-2022 Hemoglobin A1c/Hemoglobin.total in Blood Autumn Rory HOT PATCHER.SHORE [employer]ED[employer] BARGE Work Phone: Start: 05-10-2022 Microscopic observat ion [Identifier] in Cervix by Cyto stain Leesa Huddleston PA-C Work Phone: Start: 04-18-2022 Adult depression scr eening assessment Dashawn Cain APRN.SH[employer]GE Work Phone: Start: 12-28-2021 Ecg routine ecg [...] for Adults (1 - 1-dose 75+ series) [facility] Start: 2054 RSV Immunization aged 60 or older (1 - 1-dose 60+ series) RSV Immunization aged 60 or older (1 - 1-dose 60+ series) [facility] Start: 2044 Zoster Vaccines (1 of 2) Zoster Vaccines (1 of 2) [facility] Start: 07-10-2029 Screening for malignant neoplasm of cervix Cervical Cancer Screening [facility] Start: 07-10-2027 Screening for malignant neoplasm of cervix [facility] Start: 02-04-2026 End: 02-04-2026 Patient encounter procedure 02/04/2026 10:00 AM EDT Office Visit [facility] Dermatology - [place] [address] [place] [id number] Mishel Ortez PA-C [address] [place] [address] [facility] [place] Start: 11-11-2025 BP Controlled (<130/80) BP Controlled (<130/80) [facility] in Start: 07-30-2025 End: 07-30-2025 Patient encounter procedure 07/30/2025 9:20 AM EST Office Visit [facility] Dermatology [place] [address] [place] [address] Mishel Ortez PA-C [address] [place] [address] [facility] - [place] Start: 07-14-2025 End: 07-14-2025 Patient encounter procedure 07/14/2025 10:30 AM EST Office Visit OB/Gynecology [address] [place], [place] [id number] Jason Paredes MD [address] [place] [address] Annual OB/Gynecology Comment on above: Annual Start: 07-10-2025 BP Controlled (<130/80) BP Controlled (<130/80) [facility] Start: 05-10-2025 PAP TESTING PAP TESTING [facility] Start: 05-10-2025 Screening for malignant neoplasm of cervix [facility] Start: 04-28-2025 Influenza vaccination Influenza Vaccine (Season Ended) [facility] Start: 03-12-2025 BP Controlled (<130/80) BP Controlled (<130/80) [facility] Start: 03-12-2025 Hemoglobin A1c measurement Diabetes: Hemoglobin A1C [facility] Start: 01-27-2025 End: 01-27-2026 CBC W Auto Differential panel - Blood CBC auto differential Lab Routine Encounter for long-term (current) use of medications Expected: 01/27/2025 (Approximate), Expires: 01/27/2026 [facility] System Work Phone: Comment on above: Expected: 01/27/2025 (Approximate), Expi res: 01/27/2026 Start: 01-27-2025 End: 01-27-2026 Comprehensive metabolic 1998 panel - Serum or Plasma Comprehensive metabolic panel Lab Routine Encounter for long-term (current) use of medications Expected: 01/27/2025 (Approximate), Expires: 01/27/2026 [facility] [employer] Comment on above: Expected: 01/27/2025 (Approximate), Expi res: 01/27/2026 Start: 01-27-2025 End: 01-27-2026 Hepatitis A virus IgM Ab [Presence] in Serum or Plasma by Immunoassay Hepatitis A antibody, IgM Lab Routine Screening for viral disease Encounter for long-term (current) use of medications Expected: 01/27/2025 (Approximate), Expires: 01/27/2026 [facility] [employer] Comment on above: Expected: 01/27/2025 (Approximate), Expi res: 01/27/2026 Start: 01-27-2025 End: 01-27-2026 Hepatitis B virus core IgM Ab [Presence] in Serum or Plasma by Immunoassay Hepatitis B core antibody, IgM Lab Routine Screening for viral disease Encounter for long-term (current) use of medications Expected: 01/27/2025 (Approximate), Expires: 01/27/2026 [facility] [employer] Comment on above: Expected: 01/27/2025 (Approximate), Expi res: 01/27/2026 Start: 01-27-2025 End: 01-27-2026 Hepatitis B virus surface Ab [Units/volume] in Serum or Plasma by Immunoassay Hepatitis B surface antibody Lab Routine Screening for viral disease Encounter for long-term (current) use of medications Expected: 01/27/2025 (Approximate), Expires: 01/27/2026 [facility] [employer] Comment on above: Expected: 01/27/2025 (Approximate), Expi res: 01/27/2026 Start: 01-27-2025 End: 01-27-2026 Hepatitis B virus surface Ag [Presence] in Serum or Plasma by Immunoassay Hepatitis B surface antigen Lab Routine Screening for viral disease Encounter for long-term (current) use of medications Expected: 01/27/2025 (Approximate), Expires: 01/27/2026 [facility] Comment on above: Expected: 01/27/2025 (Approximate), Expi res: 01/27/2026 Start: 01-27-2025 End: 01-27-2026 Hepatitis C virus Ab [Presence] in Serum or Plasma by Immunoassay Hepatitis C antibody Lab Routine Screening for viral disease Encounter for long-term (current) use of medications Expected: 01/27/2025 (Approximate), Expires: 01/27/2026 [facility] Comment on above: Expected: 01/27/2025 (Approximate), Expi res: 01/27/2026 Start: 01-27-2025 End: 01-27-2026 HIV 1+2 Ab+HIV1 p24 Ag [Presence] in Serum or Plasma by Immunoassay HIV-1 and HIV-2 Antigen-Antibody Screen Lab Routine Screening for viral disease Encounter for long-term (current) use of medications Expected: 01/27/2025 (Approximate), Expires: 01/27/2026 [facility] Comment on above: Expected: 01/27/2025 (Approximate), Expi res: 01/27/2026 Start: 01-27-2025 End: 01-27-2026 QUANTIFERON TB GOLD QUANTIFERON TB GOLD Lab Routine Encounter for screening for respiratory tuberculosis Encounter for long-term (current) use of medications Expected: 01/27/2025 (Approximate), Expires: 01/27/2026 [facility] Comment on above: Expected: 01/27/2025 (Approximate), Expi res: 01/27/2026 Start: 01-27-2025 End: 01-27-2025 Patient encounter procedure 01/27/2025 1:00 PM EDT Office Visit [facility] [address] [place] [phone] Mishel Ortez PA-C [address] [place] [address] [facility] [place] Start: 01-06-2025 End: 01-06-2025 Patient encounter procedure 01/06/2025 1:00 PM EDT Office Visit [facility] [place] [facility] [address] [place] [phone] Gardenia Reyes PA-C [address] [place] [address] [facility] - [place] Start: 12-12-2024 Hemoglobin A1c measurement Diabetes: Hemoglobin A1C [facility] Start: 11-11-2024 End: 11-11-2024 Patient encounter procedure 11/11/2024 10:30 AM EDT Office Visit Gastroenterology [address] [place] [address] Hylton DO [address] [place] [address] eating issues/gp Gastroenterology Comment on above: eating issues/gp Start: 09-12-2024 BP Controlled (<130/80) BP Controlled (<130/80) [facility] Start: 09-12-2024 Hemoglobin A1c measurement [facility] Start: 09-03-2024 End: 09-03-2024 Patient encounter procedure 09/03/2024 11:30 AM EST Office Visit Endocrinology [address] [place] [address] Jessica Guerrero APRN.[employer]GE [address] [place], [place] [id number] 6 month follow up Endocrinology Comment on above: 6 month follow up Start: 09-02-2024 End: 09-02-2024 ambulatory 09/02/2024 9:30 AM EST [facility] [address] [place] [address] DO [address] [place] [address] gp f/u Gastroenterology Comment on above: gp f/u Start: 08-28-2024 Medicare Advantage Annual Wellness Visit Medicare [facility] Annual Wellness Visit [facility] Start: 08-15-2024 Diabetes: Estimated Glomerular Filtration Rate for Kidney Health Diabetes: Estimated Glomerular Filtration Rate for Kidney Health [facility] Start: 08-06-2024 End: 08-06-2024 Patient encounter procedure [facility] D[facility] Start: 2024 Screening for malignant neoplasm of cervix HPV/Cotest [facility] Start: 07-23-2024 End: 07-23-2024 Nursing evaluation of patient and report 07/23/2024 9:00 AM EST Nurse Visit [facility]ocrin[facility] [address] [facility] [place] [address] Vamsi Carson, RN [address] [id number] Type 1 diabetes mellitus with hyperglycemia, with [...] status Expected: 07/19/2024, Expires: 10/18/[address] [facility] Work Phone: Comment on above: [...] End: 07-19-2024 ambulatory 07/19/2024 1:30 PM EST [facility] Endocrinology [address] [place] [address] Jessica Guerrero APRN.[employer] [address] [place] [address] follw up Endocrinology Comment on above: follw up Start: 07-10-2024 End: 10-09-2024 Hepatitis C virus RNA [Units/volume] (viral load) in Serum or Plasma by DANIEL with probe detection [facility] Comment on above: Expected: 07/10/2024, Expires: Start: 07-10-2024 End: 10-09-2024 HIV 1+2 Ab [Presence] in Serum or Plasma by Immunoassay [facility] Work Phone: Comment on above: Expected: 07/10/2024, Expires: Start: 07-10-2024 End: 10-09-2024 SYPHILIS TREPONEMAL W/REFLEX [facility] Comment on above: Expected: 07/10/2024, Expires: 5 Start: 07-10-2024 End: 10-09-2024 Thyrotropin [Units/volume] in Serum or Plasma [facility] Comment on above: Expected: 07/10/2024, Expires: 5 Start: 07-10-2024 End: 07-10-2024 Patient encounter procedure 07/10/2024 11:10 AM EST Office Visit OB/Gynecology [address] [place] [address] Jason Paredes MD [address] [place] [address] Annual/ Referral in Scan Doc OB/Gynecology Comment on above: Annual/ Referral in Scan Doc Start: 06-13-2024 End: 06-13-2024 Patient encounter procedure 06/13/2024 3:00 PM EDT Office Visit Endocrinology [address] [facility] [place] [address] Jessica Guerrero, HOT PATCHER.[employer] [address] [facility] [place] [address] 6 month follow up Endocrinology Comment on above: 6 month follow up Start: 06-13-2024 Hemoglobin A1c measurement HbA1C [facility] Start: 06-12-2024 Hemoglobin A1c measurement HbA1C [facility] Start: 05-31-2024 BP Controlled (<130/80) BP Controlled (<130/80) [facility] Start: 05-31-2024 Hemoglobin A1c measurement Diabetes: Hemoglobin A1C [facility] Start: 05-28-2024 End: 05-28-2024 Patient encounter procedure 05/28/2024 11:30 AM EDT Office Visit Endocrinology [address] [facility] [place] [address] Jessica Guerrero, HOT PATCHER.[employer] [address] [facility] [place] [address] 2-3 month f/u Endocrinology Comment on above: 2-3 month f/u Start: 04-28-2024 COVID-19 Vaccine ( season) COVID-19 Vaccine ( season) [facility] Start: 04-28-2024 Covid-19 Vaccine ( season) Covid-19 Vaccine ( season) [facility] Start: 04-28-2024 Influenza vaccination [facility] Start: 04-16-2024 DTaP/Tdap/Td Vaccines (3 - Td or Tdap) DTaP/Tdap/Td Vaccines (3 - Td or Tdap) [facility] Start: 04-16-2024 Urine microalbumin profile [facility] Start: 03-12-2024 Hemoglobin A1c measurement HbA1C [facility] Start: 03-12-2024 End: 03-12-2024 Patient encounter procedure 03/12/2024 2:00 PM EDT Office Visit Endocrinology [address] [place] [address] Kvng Lewis MD [address] [place] [address] follow up Endocrinology Comment on above: follow up Start: 02-08-2024 BP CONTROLLED (<130/80) BP CONTROLLED (<130/80) [facility] Start: 02-01-2024 End: 02-01-2024 Patient encounter procedure 02/01/2024 10:00 AM EDT Office Visit [facility] [address] [place] [id number] Leesa Huddleston PA-C [address] [place], [place] [id number] [facility] Start: 01-26-2024 BP CONTROLLED (<130/80) BP CONTROLLED (<130/80) [facility] Start: 01-21-2024 ANNUAL PCP TEAM CHRONIC DISEASE VISIT ANNUAL PCP TEAM CHRONIC DISEASE VISIT [facility] Start: 01-21-2024 BP CONTROLLED (<130/80) BP CONTROLLED (<130/80) [facility] Start: 12-09-2023 ANNUAL PCP TEAM CHRONIC DISEASE VISIT ANNUAL PCP TEAM CHRONIC DISEASE VISIT [facility] Start: 11-30-2023 Hemoglobin A1c measurement HbA1C [facility] Start: 11-30-2023 Hemoglobin A1c/Hemoglobin.total in Blood HbA1C [facility] Start: 11-14-2023 End: 11-14-2023 Patient encounter procedure 11/14/2023 10:20 AM EDT Office Visit [facility] [address] [place] [phone] Leesa Huddleston PA-C [address] [place] [address] [facility] Start: 11-08-2023 BP CONTROLLED (<130/80) BP CONTROLLED (<130/80) [facility] Start: 10-25-2023 [facility] Start: 10-25-2023 Suicide precautions [facility] Start: 10-18-2023 Patient discharge [facility] Start: 10-17-2023 [facility] Start: 10-17-2023 Venous catheter care management [facility] Start: 10-17-2023 Assessment of risk of venous thromboembolism [facility] Start: 10-17-2023 Continuous pulse oximetry [facility] Start: 10-17-2023 Insertion of catheter into peripheral vein [facility] Start: 10-17-2023 Measuring intake and output [facility] Start: 10-17-2023 Notification of physician [facility] Start: 10-17-2023 Patient education [facility] Start: 10-17-2023 Patient referral to dietitian [facility] Start: 10-17-2023 Providing care according to standard [facility] Start: 10-17-2023 Referral to occupational therapist [facility] Start: 10-17-2023 Referral to service [facility] Start: 10-17-2023 Vital signs measurements [facility] Start: 10-17-2023 [facility] Start: 10-17-2023 Verification routine [facility] Start: 10-17-2023 Admission procedure [facility] Start: 10-17-2023 Hospital admission, emergency, from emergency room, medical nature [facility] Start: 10-17-2023 [facility] Start: 09-25-2023 Venous catheter care management [facility] Start: 09-25-2023 [facility] Start: 09-20-2023 [facility] Start: 09-06-2023 Venous catheter care management [facility] Start: 09-06-2023 [facility] Start: 08-28-2023 Behavioral Health Screening Behavioral Health Screening [facility] Start: 08-28-2023 Depression Assessment Depression Assessment [facility] Start: 08-28-2023 Medicare Advantage Annual Wellness Visit Medicare Advantage Annual Wellness Visit [facility] Start: 08-22-2023 [facility] Start: 08-22-2023 [facility] Start: 08-22-2023 Venous catheter care management [facility] Start: 08-16-2023 3 comp foot exam completed DIABETIC FOOT EXAM [facility] Start: 08-16-2023 BP CONTROLLED (<130/80) BP CONTROLLED (<130/80) [facility] Start: 08-16-2023 Diabetic foot examination Diabetic Foot Exam [facility] Start: 08-15-2023 End: 08-15-2023 Patient encounter procedure [facility] Start: 08-10-2023 Patient discharge [facility] Start: 08-10-2023 End: 08-10-2023 [facility] Start: 08-09-2023 Care planning and problem solving actions [facility] Start: 08-09-2023 Provision of activity privileges [facility] Start: 08-08-2023 [facility] Start: 08-08-2023 Blood chemistry [facility] Start: 08-08-2023 [facility] Start: 08-07-2023 Care planning and problem solving actions [facility] Start: 08-07-2023 Blood chemistry [facility] Start: 08-07-2023 Blood chemistry [facility] Start: 08-07-2023 Care planning and problem solving actions [facility] Start: 08-07-2023 Blood chemistry [facility] Start: 08-07-2023 Blood chemistry [facility] Start: 08-07-2023 Acetone [Presence] in Serum or Plasma [facility] Start: 08-07-2023 Gas panel - Arterial blood [facility] Start: 08-07-2023 Blood chemistry [facility] Start: 08-07-2023 Application of intermittent pneumatic compression device [facility] Start: 08-07-2023 Enteric precautions [facility] Start: 08-07-2023 Following clinical pathway protocol [facility] Start: 08-07-2023 Hemoglobin A1c/Hemoglobin.total in Blood [facility] Start: 08-07-2023 Lab findings surveillance [facility] Start: 08-07-2023 Notification of physician [facility] Start: 08-07-2023 Patient education [facility] Start: 08-07-2023 Taking nasal swab [facility] Start: 08-07-2023 Vital signs measurements [facility] Start: 08-07-2023 [facility] Start: 08-07-2023 Aspiration precautions [facility] Start: 08-07-2023 Blood chemistry [facility] Start: 08-07-2023 Admission procedure [facility] Start: 08-06-2023 Venous catheter care management [facility] Start: 08-06-2023 Gas panel - Venous blood [facility] Start: 08-06-2023 [facility] Start: 08-06-2023 Venous catheter care management [facility] Start: 07-27-2023 Hemoglobin A1c/Hemoglobin.total in Blood HBA1C [facility] Start: 06-26-2023 Venous catheter care management [facility] Start: 06-26-2023 [facility] Start: 06-25-2023 End: 06-25-2023 [facility] Start: 06-07-2023 BP CONTROLLED (<130/80) BP CONTROLLED (<130/80) [facility] Start: 05-10-2023 BP CONTROLLED (<130/80) BP CONTROLLED (<130/80) [facility] Start: 05-06-2023 Blood chemistry [facility] Start: 05-05-2023 Blood chemistry [facility] Start: 05-04-2023 Blood chemistry [facility] Start: 05-03-2023 Venous catheter care management [facility] Start: 05-03-2023 Blood chemistry [facility] Start: 05-02-2023 Blood chemistry [facility] Start: 05-01-2023 Blood chemistry [facility] Start: 04-30-2023 Blood chemistry [facility] Start: 04-29-2023 Patient discharge [facility] Start: 04-29-2023 Venous catheter care management [facility] Start: 04-28-2023 Care regimes management [facility] Start: 04-28-2023 Notification of physician [facility] Start: 04-28-2023 End: 04-28-2023 [facility] Start: 04-28-2023 Covid-19 Vaccine () Covid-19 Vaccine ( season) [facility] Start: 04-28-2023 Influenza vaccination [facility] Start: 04-28-2023 Urine culture Urine Culture [facility] Start: 04-28-2023 [facility] Start: 04-27-2023 Following clinical pathway protocol [facility] Start: 04-27-2023 Ambulation without limitation [facility] Start: 04-27-2023 Assessment of risk of venous thromboembolism [facility] Start: 04-27-2023 Insertion of catheter into peripheral vein [facility] Start: 04-27-2023 Providing care according to standard [facility] Start: 04-27-2023 [facility] Start: 04-27-2023 Verification routine [facility] Start: 04-27-2023 Admission procedure [facility] Start: 04-27-2023 [facility] Start: 04-27-2023 Venous catheter care management [facility] Start: 04-27-2023 Consultation [facility] Start: 04-27-2023 Patient referral to dietitian [facility] Start: 04-23-2023 Venous catheter care management [facility] Start: 04-18-2023 Adult depression screening assessment DEPRESSION SCREENING [facility] Start: 04-18-2023 ANNUAL PCP TEAM CHRONIC DISEASE VISIT ANNUAL PCP TEAM CHRONIC DISEASE VISIT [facility] Start: 04-18-2023 BP CONTROLLED (<130/80) BP CONTROLLED (<130/80) [facility] Start: 02-14-2023 Hemoglobin A1c/Hemoglobin.total in Blood HBA1C [facility] Start: 01-25-2023 End: 03-27-2023 ALBUMIN/CREAT RATIO RND UR ALBUMIN/CREAT RATIO RND UR Lab Routine Type 1 diabetes mellitus with hyperglycemia, with long-term current use of insulin (HCC) Expected: 01/25/2023, Expires: 03/27/[address] [facility] Work Phone: Comment on above: Expected: 01/25/2023, Expires: Start: 10-04-2022 End: 10-04-2023 CBC W Auto Differential panel - Blood CBC auto differential Lab Routine Psoriasis vulgaris Encounter for long-term current use of high risk medication Expected: 10/04/2022 (Approximate), Expires: 10/04/2023 [facility] Work Phone: Comment on above: Expected: 10/04/2022 (Approximate), Expi res: 10/04/2023 Start: 10-04-2022 End: 02-07-2024 Comprehensive metabolic 1998 panel - Serum or Plasma Comprehensive metabolic panel Lab Routine Psoriasis vulgaris Encounter for long-term current use of high risk medication Expected: 10/04/2022 (Approximate), Expires: 10/04/2023 [facility] Comment on above: Expected: 10/04/2022 (Approximate), Expi res: 10/04/2023 Start: 10-04-2022 End: 10-04-2023 Hepatitis A virus IgM Ab [Presence] in Serum or Plasma by Immunoassay Hepatitis A antibody, IgM Lab Routine Psoriasis vulgaris Encounter for long-term current use of high risk medication Screening for viral disease Expected: 10/04/2022 (Approximate), Expires: 10/04/2023 [facility] [employer] [facility] Comment on above: Expected: 10/04/2022 (Approximate), Expi res: 10/04/2023 Start: 10-04-2022 End: 10-04-2023 Hepatitis B virus core IgM Ab [Presence] in Serum or Plasma by Immunoassay Hepatitis B core antibody, IgM Lab Routine Psoriasis vulgaris Encounter for long-term current use of high risk medication Screening for viral disease Expected: 10/04/2022 (Approximate), Expires: 10/04/2023 [facility] [employer] [facility] Comment on above: Expected: 10/04/2022 (Approximate), Expi res: 10/04/2023 Start: 10-04-2022 End: 10-04-2023 Hepatitis B virus surface Ab [Units/volume] in Serum or Plasma by Immunoassay Hepatitis B surface antibody Lab Routine Psoriasis vulgaris Encounter for long-term current use of high risk medication Screening for viral disease Expected: 10/04/2022 (Approximate), Expires: 10/04/2023 [facility] [employer] [facility] Comment on above: Expected: 10/04/2022 (Approximate), Expi res: 10/04/2023 Start: 10-04-2022 End: 10-04-2023 Hepatitis B virus surface Ag [Presence] in Serum or Plasma by Immunoassay Hepatitis B surface antigen Lab Routine Psoriasis vulgaris Encounter for long-term current use of high risk medication Screening for viral disease Expected: 10/04/2022 (Approximate), Expires: 10/04/2023 [facility] Comment on above: Expected: 10/04/2022 (Approximate), Expi res: 10/04/2023 Start: 10-04-2022 End: 10-04-2023 Hepatitis C virus Ab [Presence] in Serum or Plasma by Immunoassay Hepatitis C antibody Lab Routine Psoriasis vulgaris Encounter for long-term current use of high risk medication Screening for viral disease Expected: 10/04/2022 (Approximate), Expires: 10/04/2023 [facility] [employer] [facility] Comment on above: Expected: 10/04/2022 (Approximate), Expi res: 10/04/2023 Start: 10-04-2022 End: 10-04-2023 HIV 1+2 Ab+HIV1 p24 Ag [Presence] in Serum or Plasma by Immunoassay HIV-1 and HIV-2 Antigen-Antibody Screen Lab Routine Psoriasis vulgaris Encounter for long-term current use of high risk medication Screening for viral disease Expected: 10/04/2022 (Approximate), Expires: 10/04/2023 [facility] on above: Expected: 10/04/2022 (Approximate), Expi res: 10/04/2023 Start: 10-04-2022 End: 10-04-2023 QUANTIFERON TB GOLD QUANTIFERON TB GOLD Lab Routine Psoriasis vulgaris Encounter for long-term current use of high risk medication Expected: 10/04/2022 (Approximate), Expires: 10/04/2023 [facility] Comment on above: Expected: 10/04/2022 (Approximate), Expi res: 10/04/2023 Start: 08-28-2022 DEPRESSION ASSESSMENT DEPRESSION ASSESSMENT [facility] Start: 07-11-2022 End: 09-10-2022 Hemoglobin A1c in Blood HGB A1C Lab Routine Type 1 diabetes mellitus with hyperglycemia (HCC) Insulin pump status Expected: 07/11/2022, Expires: 09/10/[address] [facility] Work Phone: Comment on above: Expected: 07/11/2022, Expires: 3 Start: 07-11-2022 End: 09-10-2022 THYROID PEROXIDASE ANTIBODY BLOOD THYROID PEROXIDASE ANTIBODY BLOOD Lab Routine Type 1 diabetes mellitus with hyperglycemia (HCC) Insulin pump status Abnormal results of thyroid function studies Expected: 07/11/2022, Expires: 09/10/[address] [facility] Work Phone: Comment on above: Expected: 07/11/2022, Expires: 3 Start: 07-11-2022 End: 09-10-2022 Thyrotropin [Units/volume] in Serum or Plasma TSH BLD Lab Routine Type 1 diabetes mellitus with hyperglycemia (HCC) Insulin pump status Abnormal results of thyroid function studies Expected: 07/11/2022, Expires: 09/10/[address] [facility] Work Phone: Comment on above: Expected: 07/11/2022, Expires: 3 Start: 07-11-2022 End: 09-10-2022 Thyroxine (T4) free [Mass/volume] in Serum or Plasma T4 FREE/FREE THYROX Lab Routine Type 1 diabetes mellitus with hyperglycemia (HCC) Insulin pump status Abnormal results of thyroid function studies Expected: 07/11/2022, Expires: 09/10/[address] [facility] Work Phone: Comment on above: Expected: 07/11/2022, Expires: 3 Start: 07-02-2022 Hemoglobin A1c/Hemoglobin.total in Blood HBA1C [facility] Start: 04-28-2022 Influenza vaccination [facility] Start: 04-18-2022 End: 06-18-2022 Chlamydia trachomatis+Neisseria gonorrhoeae DNA [Presence] in Urine by DANIEL with probe detection GC/CHLAMYDIA AMPLIF, URINE Microbiology Routine Menstrual irregularity Screening for STD (sexually transmitted disease) Expected: 04/18/2022, Expires: 06/18/[address] [facility] Work Phone: Comment on above: Expected: 04/18/2022, Expires: 2 Start: 04-18-2022 End: 06-18-2022 Choriogonadotropin ( test) [Presence] in Urine HCG QUAL UR Lab Routine Menstrual irregularity Expected: 04/18/2022, Expires: 06/18/[address] [facility] Work Phone: Comment on above: Expected: 04/18/2022, Expires: 2 Start: 02-04-2022 Hepatitis B surface antibody level LDL CHOLESTEROL [facility] Start: 08-28-2021 DEPRESSION ASSESSMENT DEPRESSION ASSESSMENT [facility] Start: 09-30-2021 Hemoglobin A1c/Hemoglobin.total in Blood HBA1C [facility] Start: 12-23-2020 Glaucoma screening Dilated Retinal Exam [facility] Start: 12-23-2020 Hepatitis C antibody, confirmatory test DILATED RETINAL EXAM [facility] Start: 03-30-2019 PAP TESTING PAP TESTING [facility] Start: 03-21-2018 Diabetes: Urine Albumin-Creatinine Ratio for Kidney Health Diabetes: Urine Albumin-Creatinine Ratio for [facility] Start: 03-21-2018 Hepatitis B screening URINE ALBUMIN:CREATININE RATIO [facility] Start: 11-23-2016 Adult depression screening assessment DEPRESSION SCREENING [facility] Start: 11-12-2016 3 comp foot exam completed DIABETIC FOOT EXAM [facility] Start: 01-01-2014 PNEUMOCOCCAL (2 - PCV) PNEUMOCOCCAL (2 - PCV) [facility] Start: 01-01-2014 Pneumococcal vaccination [facility] Start: 2013 HEPATITIS B (1 of [...] (1 of 3 - 19+ 3-dose series) [facility] Start: 2013 Urine screening for protein Diabetes: Urine Protein Screening [facility] Start: 12-11-2012 HPV Vaccine (3 - 3-dose series) HPV Vaccine (3 - 3-dose series) [facility] Start: 12-11-2012 HPV Vaccines (3 - 3-dose series) HPV Vaccines (3 - 3-dose series) [facility] Start: 11-06-2012 Hepatitis A Vaccines (2 of 2 - 2-dose series) Hepatitis A Vaccines (2 of 2 - 2-dose series) [facility] Start: 2012 ANNUAL PCP TEAM CHRONIC DISEASE VISIT ANNUAL PCP TEAM CHRONIC DISEASE VISIT [facility] Start: 2012 BP CONTROLLED (<130/80) BP CONTROLLED (<130/80) [facility] Start: 2012 Depression Screening Depression Screening [facility] Start: 2012 Diabetes: Urine Albumin-Creatinine Ratio for Kidney Health Diabetes: Urine Albumin-Creatinine Ratio for Kidney Health [facility] Start: 2012 Hepatitis B surface antibody level LDL CHOLESTEROL [facility] Start: 2007 Varicella vaccination Varicella Vaccines (1 of 2 - 13+ 2-dose series) [facility] Start: 2006 Depression Monitoring Depression Monitoring [facility] Start: 2006 Depression Screening Depression Screening [facility] Start: 2004 Diabetic foot examination Diabetes: Foot Exam [facility] Start: 2004 Glaucoma screening Diabetes: Retinopathy Screening [facility] Start: 2004 Preventive dental service Diabetes: Dental Exam [facility] Start: 2000 PNEUMOCOCCAL (1 - PCV) PNEUMOCOCCAL (1 - PCV) [facility] Start: 1999 COVID-19 VACCINE (#1) COVID-19 VACCINE (#1) [facility] Start: 1999 COVID-19 VACCINE (1) COVID-19 VACCINE (1) [facility] Start: 1995 MMR Vaccines (1 of 1 - Standard series) MMR Vaccines (1 of 1 - Standard series) [facility] Start: 1995 Varicella vaccination Varicella Vaccines (1 of 2 - 2-dose childhood series) [facility] Start: 01-27-1995 COVID-19 VACCINE (#1) COVID-19 VACCINE (#1) [facility] Start: 1994 Hemoglobin A1c measurement Diabetes: Hemoglobin A1C [facility] Start: 1994 HEPATITIS B (1 of 3 - 3-dose series) HEPATITIS B (1 of 3 - 3-dose series) [facility] Start: 1994 Hepatitis B Vaccine (1 of 3 - 3-dose series) Hepatitis B Vaccine (1 of 3 - 3-dose series) [facility] Start: 1994 Hepatitis B Vaccines (1 of 3 - 3-dose series) Hepatitis B Vaccines (1 of 3 - 3-dose series) [facility] Start: 1994 Lipid panel Lipid Panel [facility] Start: 1994 Medicare Advantage Annual Wellness Visit (AWV) Medicare Advantage Annual Wellness Visit (AWV) [facility] Anion gap measurement [facility] Anion gap measurement [facility] Anion gap measurement [facility] Anion gap measurement [facility] An[facility] gap measurement [facility] Anion gap measurement [facility] Anion gap measurement [facility] An[facility] gap measurement [facility] Anion gap measurement [facility] Anion gap measurement [facility] An[facility] gap measurement [facility] Anion gap measurement [facility] Anion gap measurement [facility] Anion gap measurement [facility] Bacteria identified in Urine by Culture URINE CULTURE Microbiology Routine Left flank pain Ordered: 01/25/2023 [facility] Work Phone: Comment on above: Ordered: 01/25/2023 BUN/Creatinine ratio [facility] BUN/Creatinine ratio [facility] BUN/Creatinine ratio [facility] BUN/Creatinine ratio [facility] BUN/Creatinine ratio [facility] Calcium [Mass/volume ] in Serum or Plasma [facility] Calcium [Mass/volume ] in Serum or Plasma [facility] Calcium [Mass/volume ] in Serum or Plasma [facility] Calcium [Mass/volume ] in Serum or Plasma [facility] Calcium [Mass/volume ] in Serum or Plasma [facility] Calcium [Mass/volume ] in Serum or Plasma [facility] Calcium [Mass/volume ] in Serum or Plasma [facility] Calcium [Mass/volume ] in Serum or Plasma [facility] Calcium [Mass/volume ] in Serum or Plasma [facility] Calcium [Mass/volume ] in Serum or Plasma [facility] Calcium [Mass/volume ] in Serum or Plasma [facility] Calcium [Mass/volume ] in Serum or Plasma [facility] Calcium [Mass/volume ] in Serum or Plasma [facility] Calcium [Mass/volume ] in Serum or Plasma [facility] Carbon dioxide, tota l [Moles/volume] in Serum or Plasma [facility] Carbon dioxide, tota l [Moles/volume] in Serum or Plasma [facility] Carbon dioxide, tota l [Moles/volume] in Serum or Plasma [facility] Carbon dioxide, tota l [Moles/volume] in Serum or Plasma [facility] Carbon dioxide, tota l [Moles/volume] in Serum or Plasma [facility] Carbon dioxide, tota l [Moles/volume] in Serum or Plasma [facility] Carbon dioxide, tota l [Moles/volume] in Serum or Plasma [facility] Carbon dioxide, tota l [Moles/volume] in Serum or Plasma [facility] Carbon dioxide, tota l [Moles/volume] in Serum or Plasma [facility] Carbon dioxide, tota l [Moles/volume] in Serum or Plasma [facility] Carbon dioxide, tota l [Moles/volume] in Serum or Plasma [facility] Carbon dioxide, tota l [Moles/volume] in Serum or Plasma [facility] Carbon dioxide, tota l [Moles/volume] in Serum or Plasma [facility] Carbon dioxide, tota l [Moles/volume] in Serum or Plasma [facility] Chlamydia trachomatis+Neisseria gonorrhoeae DNA [Presence] in Unspecified specimen by DANIEL with probe detection GC/CHLAMYDIA DNA DET Lab Routine Gonorrhea Screen for sexually transmitted diseases Ordered: 06/07/[address] [facility] Work Phone: Comment on above: Ordered: 06/07/2022 Chlamydia trachomatis+Neisseria gonorrhoeae DNA [Presence] in Unspecified specimen by DANIEL with probe detection GONORRHEA/CHLAMYDIA NAAT Lab Routine Encounter for gynecological examination (general) (routine) without abnormal findings Encounter for screening for malignant neoplasm of cervix Screening for human papillomavirus (HPV) Irregular menstrual bleeding Routine screening for STI (sexually transmitted infection) 07/10/2024 12:13 PM [facility] Chloride [Moles/volu me] in Serum or Plasma [facility] Chloride [Moles/volu me] in Serum or Plasma [facility] Chloride [Moles/volu me] in Serum or Plasma [facility] Chloride [Moles/volu me] in Serum or Plasma [facility] Chloride [Moles/volu me] in Serum or Plasma [facility] Chloride [Moles/volu me] in Serum or Plasma [facility] Chloride [Moles/volu me] in Serum or Plasma [facility] Chloride [Moles/volu me] in Serum or Plasma [facility] Chloride [Moles/volu me] in Serum or Plasma [facility] Chloride [Moles/volu me] in Serum or Plasma [facility] Chloride [Moles/volu me] in Serum or Plasma [facility] Chloride [Moles/volu me] in Serum or Plasma [facility] Chloride [Moles/volu me] in Serum or Plasma [facility] Chloride [Moles/volu me] in Serum or Plasma [facility] Clostridioides diffi cile DNA [Presence] in Unspecified specimen by DANIEL with probe detection [facility] Creatinine [Moles/vo lume] in Serum or Plasma [facility] Creatinine [Moles/vo lume] in Serum or Plasma [facility] Creatinine [Moles/vo lume] in Serum or Plasma [facility] Creatinine [Moles/vo lume] in Serum or Plasma [facility] Creatinine [Moles/vo lume] in Serum or Plasma [facility] Creatinine [Moles/vo lume] in Serum or Plasma [facility] Creatinine [Moles/vo lume] in Serum or Plasma [facility] Creatinine [Moles/vo lume] in Serum or Plasma [facility] Creatinine [Moles/vo lume] in Serum or Plasma [facility] Creatinine [Moles/vo lume] in Serum or Plasma [facility] Creatinine [Moles/vo lume] in Serum or Plasma [facility] Creatinine [Moles/vo lume] in Serum or Plasma [facility] Creatinine [Moles/vo lume] in Serum or Plasma [facility] Creatinine [Moles/vo lume] in Serum or Plasma [facility] Gastrointestinal pathogens panel - Stool by DANIEL with probe detection [facility] Glucose [Mass/volume ] in Serum or Plasma [facility] Glucose [Mass/volume ] in Serum or Plasma [facility] Glucose [Mass/volume ] in Serum or Plasma [facility] Glucose [Mass/volume ] in Serum or Plasma [facility] Glucose [Mass/volume ] in Serum or Plasma [facility] Glucose [Mass/volume ] in Serum or Plasma [facility] Glucose [Mass/volume ] in Serum or Plasma [facility] Glucose [Mass/volume ] in Serum or Plasma [facility] Glucose [Mass/volume ] in Serum or Plasma [facility] Glucose [Mass/volume ] in Serum or Plasma [facility] Glucose [Mass/volume ] in Serum or Plasma [facility] Glucose [Mass/volume ] in Serum or Plasma [facility] Glucose [Mass/volume ] in Serum or Plasma [facility] Glucose [Mass/volume ] in Serum or Plasma [facility] Hematocrit [Volume Fraction] of Blood [facility] Hematocrit [Volume Fraction] of Blood [facility] Hematocrit [Volume Fraction] of Blood [facility] Hematocrit [Volume Fraction] of Blood [facility] Hematocrit [Volume Fraction] of Blood [facility] Hematocrit [Volume Fraction] of Blood [facility] Hematocrit [Volume Fraction] of Blood [facility] Hemoglobin [Mass/vol ume] in Blood [facility] Hemoglobin [Mass/vol ume] in Blood [facility] Hemoglobin [Mass/vol ume] in Blood [facility] Hemoglobin [Mass/vol ume] in Blood [facility] Hemoglobin [Mass/vol ume] in Blood [facility] Hemoglobin [Mass/vol ume] in Blood [facility] Hemoglobin [Mass/vol ume] in Blood [facility] Hemoglobin A1c/Hemoglobin.total in Blood HEMOGLOBIN A1C (POC) Lab Routine Type 1 diabetes mellitus with hyperglycemia, with long-term current use of insulin (HCC) Ordered: 03/12/[address] [facility] Work Phone: Comment on above: Ordered: 03/12/2024 Lactoferrin [Presenc e] in Stool by Immunoassay [facility] Leukocytes [#/volume ] in Blood [facility] Leukocytes [#/volume ] in Blood [facility] Leukocytes [#/volume ] in Blood [facility] Leukocytes [#/volume ] in Blood [facility] Leukocytes [#/volume ] in Blood [facility] Leukocytes [#/volume ] in Blood [facility] Leukocytes [#/volume ] in Blood [facility] Magnesium [Mass/volu me] in Serum or Plasma [facility] Mean corpuscular hemoglobin concentration determination [facility] Mean corpuscular hemoglobin concentration determination [facility] Mean corpuscular hemoglobin concentration determination [facility] Mean corpuscular hemoglobin concentration determination [facility] Mean corpuscular hemoglobin concentration determination [facility] Mean corpuscular hemoglobin concentration determination [facility] Mean corpuscular hemoglobin concentration determination [facility] Mean corpuscular hemoglobin determination [facility] Mean corpuscular hemoglobin determination [facility] Mean corpuscular hemoglobin determination [facility] Mean corpuscular hemoglobin determination [facility] Mean corpuscular hemoglobin determination [facility] Mean corpuscular hemoglobin determination [facility] Mean corpuscular hemoglobin determination [facility] Measurement of renal function [facility] Measurement of renal function [facility] Measurement of renal function [facility] Measurement of renal function [facility] Measurement of renal function [facility] Measurement of renal function [facility] Measurement of renal function [facility] Measurement of renal function [facility] Measurement of renal function [facility] Measurement of renal function [facility] Measurement of renal function [facility] Measurement of renal function [facility] Measurement of renal function [facility] Measurement of renal function [facility] Neutrophil count [facility] Neutrophil count [facility] Neutrophil count [facility] Neutrophil count [facility] Neutrophil count [facility] Neutrophil count [facility] Neutrophil count [facility] Neutrophil percent differential count [facility] Neutrophil percent differential count [facility] Neutrophil percent differential count [facility] Neutrophil percent differential count [facility] Neutrophil percent differential count [facility] Neutrophil percent differential count [facility] Neutrophil percent differential count [facility] Ova and parasites identified in Unspecified specimen by Light microscopy [facility] PAP TEST PAP TEST Lab [facility] Encounter for screening for malignant neoplasm of cervix Screening for human papillomavirus (HPV) 07/10/2024 12:13 PM EST [facility] Patient Education [facility] Work Phone: Patient referral [facility] Work Phone: Platelets [#/volume] in Blood [facility] Platelets [#/volume] in Blood [facility] Platelets [#/volume] in Blood [facility] Platelets [#/volume] in Blood [facility] Platelets [#/volume] in Blood [facility] Platelets [#/volume] in Blood [facility] Platelets [#/volume] in Blood [facility] Potassium [Moles/vol ume] in Serum or Plasma [facility] Potassium [Moles/vol ume] in Serum or Plasma [facility] Potassium [Moles/vol ume] in Serum or Plasma [facility] Potassium [Moles/vol ume] in Serum or Plasma [facility] Potassium [Moles/vol ume] in Serum or Plasma [facility] Potassium [Moles/vol ume] in Serum or Plasma [facility] Potassium [Moles/vol ume] in Serum or Plasma [facility] Potassium [Moles/vol ume] in Serum or Plasma [facility] Potassium [Moles/vol ume] in Serum or Plasma [facility] Potassium [Moles/vol ume] in Serum or Plasma [facility] Potassium [Moles/vol ume] in Serum or Plasma [facility] Potassium [Moles/vol ume] in Serum or Plasma [facility] Potassium [Moles/vol ume] in Serum or Plasma [facility] Potassium [Moles/vol ume] in Serum or Plasma [facility] Red blood cell count [facility] Red blood cell count [facility] Red blood cell count [facility] Red blood cell count [facility] Red blood cell count [facility] Red blood cell count [facility] Red blood cell count [facility] Red cell distributio n width determination [facility] Red cell distributio n width determination [facility] Red cell distributio n width determination [facility] Red cell distributio n width determination [facility] Red cell distributio n width determination [facility] Red cell distributio n width determination [facility] Red cell distributio n width determination [facility] Respiratory pathogen s DNA and RNA panel - Respiratory specimen by DANIEL with probe detection [facility] Sodium [Moles/volume ] in Serum or Plasma [facility] Sodium [Moles/volume ] in Serum or Plasma [facility] Sodium [Moles/volume ] in Serum or Plasma [facility] Sodium [Moles/volume ] in Serum or Plasma [facility] Sodium [Moles/volume ] in Serum or Plasma [facility] Sodium [Moles/volume ] in Serum or Plasma [facility] Sodium [Moles/volume ] in Serum or Plasma [facility] Sodium [Moles/volume ] in Serum or Plasma [facility] Sodium [Moles/volume ] in Serum or Plasma [facility] Sodium [Moles/volume ] in Serum or Plasma [facility] Sodium [Moles/volume ] in Serum or Plasma [facility] Sodium [Moles/volume ] in Serum or Plasma [facility] Sodium [Moles/volume ] in Serum or Plasma [facility] Sodium [Moles/volume ] in Serum or Plasma [facility] T VAGINALIS AMPLIFICATION T VAGI NALIS AMPLIFICATION Lab Routine Screening for STD (sexually transmitted disease) Ordered: 04/18/[address] [facility] Work Phone: Comment on above: Ordered: 04/18/2022 TRICHOMONAS VAGINALI S NAAT TRICHOMONAS VAGINALIS NAAT Lab Routine Encounter for gynecological examination (general) (routine) without abnormal findings Encounter for screening for malignant neoplasm of cervix Screening for human papillomavirus (HPV) Irregular menstrual bleeding Routine screening for STI (sexually transmitted infection) 07/10/2024 12:13 PM [facility] Urea nitrogen [Mass/volume] in Serum or Plasma [facility] Urea nitrogen [Mass/volume] in Serum or Plasma [facility] Urea nitrogen [Mass/volume] in Serum or Plasma [facility] Urea nitrogen [Mass/volume] in Serum or Plasma [facility] Urea nitrogen [Mass/volume] in Serum or Plasma [facility] Urea nitrogen [Mass/volume] in Serum or Plasma [facility] Urea nitrogen [Mass/volume] in Serum or Plasma [facility] Urea nitrogen [Mass/volume] in Serum or Plasma [facility] Urea nitrogen [Mass/volume] in Serum or Plasma [facility] Urea nitrogen [Mass/volume] in Serum or Plasma [facility] Urea nitrogen [Mass/volume] in Serum or Plasma [facility] Urea nitrogen [Mass/volume] in Serum or Plasma [facility] Urea nitrogen [Mass/volume] in Serum or Plasma [facility] Urea nitrogen [Mass/volume] in Serum or Plasma [facility] Immunizations Immunization Date Immunization Notes Care Provider [facility] 11-05-2019 influenza, injectabl e, quadrivalent, preservative free Autumn Valadez [employer] Work Phone: [facility] Work Phone: 11-05-2019 influenza virus vacc ine, unspecified formulation Leesa Huddleston PA-C Work Phone: [facility] 06-14-2016 influenza, seasonal, injectable Autumn Valadez [employer] Work Phone: [facility] Work Phone: 05-30-2016 influenza nasal, unspecified formulation Autumn Valadez [employer] Work Phone: [facility] Work Phone: 05-30-2016 influenza virus vacc ine, unspecified formulation ANITA COMER MD [facility] 06-05-2015 influenza, seasonal, injectable, preservative free Autumn Valadez [employer] Work Phone: [facility] Work Phone: 05-23-2014 influenza virus vacc ine, unspecified formulation Leesa Huddleston PA-C Work Phone: [facility] 05-23-2014 influenza, seasonal, injectable [facility] Provider [facility] Work Phone: 04-16-2014 tetanus toxoid, redu luis eduardo diphtheria toxoid, and acellular pertussis vaccine, adsorbed [facility] Provider [facility] 01-01-2013 pneumococcal polysaccharide vaccine, 23 valent Autumn Valadez [employer] Work Phone: [facility] Work Phone: 08-11-2012 human papilloma viru s vaccine, quadrivalent Autumn Valadez [employer] Work Phone: [facility] Work Phone: 08-11-2012 HPV, unspecified formulation Leesa Huddleston PA-C Work Phone: [facility] 06-12-2012 human papilloma viru s vaccine, quadrivalent Autumn Valadez [employer] Work Phone: [facility] Work Phone: 05-09-2012 hepatitis A vaccine, pediatric/adolescent dosage, 2 dose schedule Autumn Valadez [employer] Work Phone: [facility] Work Phone: 05-09-2012 hepatitis A and hepatitis B vaccine Leesa Huddleston PA-C Work Phone: [facility] 11-03-2009 meningococcal polysaccharide (groups A, C, Y and W-135) diphtheria toxoid conjugate vaccine (MCV4P) Autumn Valadez [employer] Work Phone: [facility] Work Phone: 11-03-2009 tetanus toxoid, redu luis eduardo diphtheria toxoid, and acellular pertussis vaccine, adsorbed Autumn Valadez [employer] Work Phone: [facility] Work Phone: Payers Date Payer Category Payer Self-pay 2022 Medicare [facility] [id number] 2019 Medicare (Managed Care) [facility] [id number] 2019 Medicare [id number] 2017 Medicaid [id number]. [id number] 2017 Medicare [id number]. [id number] 2017 Medicare [id number] [id number]. [id number] 2012 Medicaid [id number] 1994 Unknown [id number] 2.16.840.1.240355.3.579.2. 903 Unknown [id number] 2.16.840.1.252304.3.579.2. 462 Unknown [id number] 2.16.840.1.147082.3.579.2. 462 Unknown [id number] 2.16.840.1.822169.3.579.2. 462 Unknown [id number] 2.16.840.1.416990.3.579.2. 462 Unknown [id number] 2.16.840.1.924975.3.579.2. 462 Unknown [id number] 2.16.840.1.728914.3.579.2. 462 Unknown [id number] 2.16.840.1.027778.3.579.2. 462 Unknown [id number] 2.16.840.1.142122.3.579.2. 462 Unknown [id number] 2.16.840.1.677256.3.579.2. 462 Unknown [id number] 2.16.840.1.051318.3.579.2. 462 Unknown [id number] 2.16.840.1.671744.3.579.2. 462 Unknown [id number] 2.16840.1.206737.3.579.2. 462 Unknown [id number] 2.16840.1.833929.3.579.2. 462 Unknown [id number] 2.840.1.063178.3.579.2. 462 Unknown [id number] 2.840.1.656135.3.579.2. 462 Unknown [id number] 2.840.1.841406.3.579.2. 462 Unknown [id number] 2.840.1.237830.3.579.2. 462 Unknown [id number] 2.840.1.323683.3.579.2. 462 Unknown [id number] 2.840.1.618723.3.579.2. 462 Unknown [id number] 2.840.1.225098.3.579.2. 462 Unknown [id number] 2.840.1.672498.3.579.2. 462 Unknown [id number] 2.840.1.520826.3.579.2. 462 Unknown [id number] 2.16840.1.776632.3.579.2. 462 Unknown [id number] 2.16840.1.256283.3.579.2. 462 Unknown [id number] 2.16840.1.293838.3.579.2. 462 Unknown [id number] 2.16840.1.334507.3.579.2. 462 Unknown [id number] 2.16.840.1.334255.3.579.2. 462 Unknown [id number] 2.16.840.1.101737.3.579.2. 462 Unknown [id number] 2.16.840.1.727200.3.579.2. 462 Unknown [id number] 2.16.840.1.360813.3.579.2. 462 Unknown [id number] 2.16.840.1.183768.3.579.2. 462 Unknown [id number] 2.16.840.1.932307.3.579.2. 462 Unknown [id number] 2.16.840.1.444654.3.579.2. 462 Unknown [id number] 2.16.840.1.161107.3.579.2. 462 Unknown [id number] 2.16.840.1.337799.3.579.2. 462 Unknown [id number] 2.16.840.1.480821.3.579.2. 462 Unknown [id number] 2.16.840.1.539647.3.579.2. 462 Unknown [id number] 2.16.840.1.890064.3.579.2. 462 Unknown [id number] 2.16.840.1.553200.3.579.2. 462 Unknown [id number] 2.16.840.1.947877.3.579.2. 462 Unknown [id number] 2.16.840.1.759524.3.579.2. 462 Unknown [id number] 2.16.840.1.138444.3.579.2. 462 Unknown [id number] 2.16.840.1.524773.3.579.2. 462 Unknown [id number] 2.16.840.1.399987.3.579.2. 462 Unknown [id number] 2.16.840.1.788211.3.579.2. 462 Unknown [id number] 2.16.840.1.368924.3.579.2. 462 Unknown [id number] 2.16.840.1.623942.3.579.2. 462 Unknown [id number] 2.16840.1.339264.3.579.2. 462 Unknown [id number] 2.16840.1.639397.3.579.2. 462 Unknown [id number] 2.16840.1.045972.3.579.2. 462 Unknown [id number] 2.840.1.006751.3.579.2. 462 Unknown [id number] 2.840.1.168249.3.579.2. 462 Unknown [id number] 2.840.1.132770.3.579.2. 462 Unknown [id number] 2.840.1.335980.3.579.2. 462 Unknown [id number] 2.840.1.143335.3.579.2. 462 Unknown [id number] 2.16840.1.010581.3.579.2. 462 Unknown [id number] 2.840.1.153011.3.579.2. 462 Unknown [id number] 2.840.1.761219.3.579.2. 462 Unknown [id number] 2.840.1.714209.3.579.2. 462 Unknown [id number] 2.840.1.132896.3.579.2. 462 Unknown [id number] 2.840.1.895418.3.579.2. 462 Social History Date Type Detail Facility [...] 11-02-2020 End: 02-03-2023 History SDOH Social Connections [facility] 1 [facility] Start: 11-02-2020 End: 02-03-2023 History SDOH Social Connections Membership 2 [facility] Start: 11-02-2020 History SDOH Social Connections Living 7 [facility] Start: 11-02-2020 History SDOH Physica l Activity DPW 4 [facility] Start: 11-02-2020 History SDOH Physica l Activity MPS 3 [facility] Start: 1995 Sex Assigned At Female C [facility] Start: 04-26-2023 End: 08-07-2023 Tobacco smoking status Tobacco smoking consumption unknown (finding) [facility] Sex Assigned At Sex [facility] Start: 02-25-2022 End: 10-04-2022 Exposure to SARS-CoV-2 (event) Not sure [facility] Start: 12-08-2022 End: 07-19-2024 Alcohol intake Current drinker of alcohol (finding) [facility] Start: 12-08-2022 Education 13 [facility] Start: 12-08-2022 Alcohol Comment very rarely [facility] Start: 03-20-2023 Tobacco smoking stat us NHIS Never smoked tobacco [facility] Start: 03-20-2023 End: 11-14-2023 Tobacco use panel [facility] Start: 03-20-2023 Alcohol Comment occasional [facility] Start: 1995 Sex Assigned At Not on file [facility] Start: 10-30-2020 Gender identity Identifies as female gender (finding) [facility] Start: 10-30-2020 Sexual orientation Bisexual (finding ) [facility] Start: 01-18-2021 End: 11-14-2023 Alcohol intake Ex-drinker (finding) [facility] Do you belong to any clubs or organizations such as spiritism groups, unions, fraternal or athletic groups, or [...] - these days [OSQ] Not at all [facility] (I/We) worried wheth er (my/our) food would run out before (I/we) got money to buy more. Never true [facility] In the past 12 month s, was there a time when you were not able to pay the mortgage or rent on time? Yes [facility] Start: 03-28-2022 Sex Female (finding) [facility] NEGATED: Highlighted row [facility] Medical Equipment Procedure Code Equipment Code Equipment Original Text Equipment Identifier Dates Graft Vasc 30cm 28mm [facility] [address] - [id number] Start: 12-09-2014 Comment on above: Description: ascendi ng aorta Slv Scler 30mm 2.4mm 1.5mm Dinorah - [id number] Start: 10-29-2012 Comment on above: Description: Style # 72 Silicone Sleeve Strip Scler [id number] Dinorah Strl - [id number] Start: 10-29-2012 Comment on above: Description: Style 4 050 Gas Io Ispan Vsn Sys 125gm Sf6 - [id number] Start: 10-29-2012 Comment on above: Description: SF6 gas 22% Burwell Cv 6x6in Thk1.65mm Ptfe - [id number] Start: 12-09-2014 Lens Iol +15.5 Mary Jo 13mm 5.5mm - [id number] Start: 05-14-2014 [id number], [id number], [id number], [id number], [id number], [id number], [id number], [id number] Start: 05-18-2020 End: 06-25-2025 Comment on above: Use as instructed to check blood glucose 7 times daily. 10 x daily DX Code: O24.011 on insulin RUFINA voucher has been faxed Use as instructed to check blood glucose 5 times daily. E10.65 Use as instructed to test blood sugar 4 times daily. E10.65 Pen Needle, Diabetic (Ultra-Thin Ii Ins Pen Vidalia) 29 gauge x 1/2 needle Start: 08-10-2023 Pen Needle, Diabetic (Ultra-Thin Ii Ins Pen Vidalia) 29 gauge x 1/2 needle Start: 08-10-2023 Pen Needle, Diabetic (Ultra-Thin Ii Ins Pen Vidalia) 29 gauge x 1/2 needle Start: 08-10-2023 Pen Needle, Diabetic (Ultra-Thin Ii Ins Pen Vidalia) 29 gauge x 1/2 needle Start: 08-10-2023 Pen Needle, Diabetic (Ultra-Thin Ii Ins Pen Vidalia) 29 gauge x 1/2 needle Start: 08-10-2023 Pen Needle, Diabetic (Ultra-Thin Ii Ins Pen Vidalia) 29 gauge x 1/2 needle Start: 08-10-2023 Loop Recorder-[id number] Reveal [id number] Start: 09-15-2014 Goals Date Patient Goal Desired Activity /State Personal health goal Functional Status Date Assessment Result Facility 10-18-2023 Functional status Ambulates [facility] Work Phone: 08-10-2023 Functional status Up ad narendra [facility] Work Phone: 04-29-2023 Functional status Ambulates;Bedr est;Bathro om Privilege [facility] Work Phone: 02-04-2023 Are you deaf, or do you have serious difficulty hearing No 02/04/2023 2:39 PM Jhoana Mart RN No [facility] 02-04-2023 Are you blind, or do you have serious difficulty seeing, even when wearing glasses No 02/04/2023 2:39 PM EDT Jhoana Colunga, STIVEN No [facility] 02-04-2023 Do you have serious difficulty walking or climbing stairs No 02/04/2023 2:39 PM EDT Jhoana Colunga, STIVEN No [facility] 02-04-2023 Do you have difficul ty dressing or bathing No 02/04/2023 2:39 PM EDT Jhoana Colunga, STIVEN No [facility] 02-04-2023 Because of a physica l, mental, or emotional condition, do you have difficulty doing errands alone such as visiting a physician's office or shopping No 02/04/2023 2:39 PM EDT Jhoana Colunga RN No [facility] Mental Status Date Assessment Result Facility 10-17-2023 Cognitive function Awake;Alert;Appropriat e [facility] Work Phone: 09-20-2023 Cognitive function Level Of Cons ciousness Awake;Alert;Appropriate;Fol lows Commands [facility] Work Phone: 08-10-2023 Cognitive function Voice/Name [facility] Work Phone: 04-29-2023 Cognitive function Voice/Name [facility] Work Phone: 04-26-2023 Cognitive function Voice/Name [facility] Work Phone: 02-04-2023 Because of a physica l, mental, or emotional condition, do you have serious difficulty concentrating, remembering, or making decisions No 02/04/2023 2:39 PM EDT Jhoana Colunga RN No [facility] Clinical Notes 01-28-2016 to 05-05-2025 Mishel Ortez PA-C - 01/27/2025 1:00 PM EDTTelephone Encounter - Guero Hammer LPN - 11/11/2024 1:55 PM EDTTelephone Encounter - Guero Hammer LPN - 11/11/2024 1:55 PM EDT Note Date & Type Note Facility 05-05-2025 Note [facility] 03-19-2025 Note [facility] 03-17-2025 Note [facility] 03-08-2025 Note [facility] 03-05-2025 Note [facility] 02-21-2025 Note [facility] 01-27-2025 History of Present illness Narrative DATE OF SERVICE: 01/27/2025 PATIENT NAME: Kathleen Villa : 1995 AGE: 29 y.o. CLINIC NUMBER: [id number] Visit type: Established patient Chief Complaint Patient [...] Adhesive? Yes- adhesives. Social History: Born/raised in [place]. Excessive sun exposure: Yes Used tanning beds: [...] ingredient(s). 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 Patient advised [...] for this encounter. documented in this encounter [facility] 01-26-2025 Note [facility] 12-16-2024 Note [facility] 11-11-2024 Telephone encounter Note [...] PATIENT PRESENTS WITH AN IMPLANTABLE OR ATTACHED UNIFORM PATROL POLICE OFFICER: No RADIOLOGY DEPARTMENT: General X-ray: Exam(s) Completed: Abdomen X-Ray: Abdomen PERIPHERAL IV DATA: Not applicable SIGNED BY: RT Eugenio(Aldo) November 11, 2024 11:07 AM documented in this encounter [facility] 11-11-2024 Note HNO ID: [id number] Author: VAMSI STEWART RT(R) Service: Radiology Author [...] PATIENT PRESENTS WITH AN IMPLANTABLE OR ATTACHED UNIFORM PATROL POLICE OFFICER: No RADIOLOGY DEPARTMENT: General X-ray: Exam(s) Completed: Abdomen X-Ray: Abdomen PERIPHERAL IV DATA: Not applicable SIGNED BY: RT Eugenio(R) November 11, 2024 11:[address] [facility] 11-11-2024 Note HNO ID: [id number] Author: LETICIA HYLTON, DO Service: ? Author [...] every 24 hours. 38.7 mL 1 Insulin Vidalia, Disposable, (PEN NEEDLE) 32 gauge x 5/32 [...] no edema RESPIRATORY: No dyspnea : neg RAIL SIGNAL WORKER: neg The remainder of the review [...] ABDOMEN 1V SUPINE (more content not included)... [facility] 11-11-2024 History of Present illness Narrative [...] every 24 hours. 38.7 mL 1 Insulin Vidalia, Disposable, (PEN NEEDLE) 32 gauge x /32 [...] no edema RESPIRATORY: No dyspnea : neg RAIL SIGNAL WORKER: neg The remainder of the review [...] in this encounter [facility] 11-06-2024 Note [facility] 11-05-2024 Miscellaneous Notes Agree [...] phone. [facility] Work Phone: 10-21-2024 Note [facility] 10-10-2024 Telephone encounter Note Form re-faxed per [facility] request [facility] 10-10-2024 Miscellaneous Notes Form re-faxed per [facility] request Form signed. Jessica Guerrero APRN.FRIEDA Clinical notes and DWO for infusion supplies placed on providers desk to review and advise. To be faxed to [facility] [phone] Patient has been identified by name and [...] review and advise. To be faxed to [facility] [phone] [facility] 10-02-2024 Telephone encounter Note Patient has been identified by name and date of : Yes Type of form: [facility] Physician Order for Insulin Pump Therapy and Diabetes Testing Form received via: abstract When form is completed, fax form to fax number provided. Form has been forwarded to: Provider's mailbox. Provider name: FRIEDA Urena [facility] 09-02-2024 Note HNO ID: [id number] Author: LETICIA HYLTON, DO Service: ? Author Type: Physician Type: Progress Notes Filed: 09/02/2024 09:32 Note Text: FOLLOW UP VIRTUAL VISIT I have communicated my name and active licensure. The patient's identity and physical location were verified at the time of this visit. Either the patient or their legal underwriting sales representative has been informed of the [...] every 24 hours. 38.7 mL 1 Insulin Vidalia, Disposable, (PEN NEEDLE) 32 gauge x 5/32 [...] no edema RESPIRATORY: No dyspnea : Negative RAIL SIGNAL WORKER: Negative The remainder of the review [...] the local ER Leticia Hylton DO 09/02/2024 [facility] 09-02-2024 History of Present illness Narrative FOLLOW UP VIRTUAL VISIT I have communicated my name and active licensure. The patient's identity and physical location were verified at the time of this visit. Either the patient or their legal underwriting sales representative has been informed of the [...] every 24 hours. 38.7 mL 1 Insulin Vidalia, Disposable, (PEN NEEDLE) 32 gauge x 5/32 [...] no edema RESPIRATORY: No dyspnea : Negative RAIL SIGNAL WORKER: Negative The remainder of the review [...] Authorization: Submitted date: 08.07.2024 PA reference #: [id number] Approval dates: 08.07.2024-08.27.2024 [facility] [phone] [facility] 08-07-2024 Miscellaneous Notes Medication: Skyrizi 150mg/ml Dosing Schedule: 150mg every 12 weeks Prior Authorization: Submitted date: 08.07.2024 PA reference #: [id number] Approval dates: 08.07.2024-08.27.2024 [facility] [phone] documented in this encounter [facility] 08-03-2024 Note [facility] 07-24-2024 Telephone encounter Note [facility] form for CGM /Pump completed and signed per Provider for Medtronic 780G pump and Guardian 4. Completed form and JOSE X2 documentation faxed as requested to [facility]. Lisa Aguilar LPN [facility] 07-24-2024 Miscellaneous Notes [facility] form for [...] start. She will need new supplies from [facility] including Guardian 4 CGM and supplies for Medtronic 780 G. Jessica Guerrero APRN.SHORE HAND DREDGE OR BARGE documented in this encounter [facility] 07-23-2024 Note HNO ID: [id number] Author: VAMSI CARSON RN Service: ? Author Type: Registered Nurse Type: Progress Notes Filed: 07/23/2024 09:04 Note Text: DIABETES CARE AND EDUCATION VISIT Location: [place] Type of visit: In person individual PATIENT'S [...] DATE: July 23, 2024 TIME: 8:47 AM [facility] 07-23-2024 History of Present illness Narrative DIABETES CARE AND EDUCATION VISIT Location: [place] Type of visit: In person individual PATIENT'S [...] pump recently. I am sending her to [employer] and [employer] to start. She will need new supplies from [facility] including Guardian 4 CGM and supplies for Medtronic 780 G. Jessica Guerrero APRN.FRIEDA [facility] 07-19-2024 History of Present illness Narrative [facility] DIABETES VISIT VIRTUAL VISIT I have communicated my name and active licensure. The patient's identity and physical location were verified at the time of this visit. Either the patient or their legal underwriting sales representative has been informed of the [...] 43 Units subcutaneously every 24 hours. Insulin Vidalia, Disposable, (PEN NEEDLE) 32 gauge x 5/32 [...] Memory Loss: No Seizures: No PHYSICAL EXAMINATION: [facility] 11/26/2022 General: Well appearing, alert, in no acute distress, well nourished. Lung: Unlabored on room air Neurological: alert and oriented x3 IMPRESSION/PLAN Ms. Villa is a 28 year old female who returns to the Department of Endocrinology for diabetes management. (E10.65) Type 1 diabetes mellitus with hyperglycemia, with long-term current use of insulin ([facility]) (primary encounter diagnosis) (Z96.41) Insulin pump status - Undetermined control - She was able to get upgraded pump back recently - Plans to send loaner back as it would be monthly charge - Will have her schedule visit with educator to start pump - Message sent to Umair at [employer] to help with upgrade to 780G and start Guardian 4 CGM - Will reach out to [facility] so she can get supplies - [...] I will reach out to Umair at [employer] about new pump and CGM 5) Update [...] months. Jessica Guerrero APRN.CNP Endocrinology & Metabolism [place] Some elements in this note were copied from my last note and have been updated as appropriate and reflect medical decision making today. documented in this encounter [facility] 07-19-2024 Note HNO ID: [id number] Author: JESSICA GUERRERO APRN.CNP Service: ? Author Type: Nurse Practitioner Type: Progress Notes Filed: 07/19/2024 15:15 Note Text: [facility] DIABETES VISIT VIRTUAL VISIT I have communicated my name and active licensure. The patient's identity and physical location were verified at the time of this visit. Either the patient or their legal underwriting sales representative has been informed of the [...] 43 Units subcutaneously every 24 hours. Insulin Vidalia, Disposable, (PEN NEEDLE) 32 gauge x 5/32 [...] ECG TRANSMIS W (more content not included)... [facility] 07-10-2024 Note HNO ID: [id number] Author: JASON PAREDES MD Service: ? Author [...] L2 SAB0 IAB0 Ectopic0 Multiple0 Live Births2 Plumbing Instructor History LMP: 11/26/2022 (Exact Date), Having periods Age at Menarche: 12 Age at First : 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 As applicable, any other physician, advance practice provider, medical student, or other health professional student that will be observing or involved in the sensitive examination for educational or training purposes was discussed with the Patient or Authorized Machine Tool Dresser. The Patient or Authorized Machine Tool Dresser has agreed to proceed with the sensitive [...] external genitalia normal, normal Bartholin's glands, urethra, Norton's glands, no vulvar lesions, no cervical lesions, [...] or sooner as needed Jason Paredes MD [facility] 07-10-2024 History of Present illness Narrative [...] L2 SAB0 IAB0 Ectopic0 Multiple0 Live Births2 Plumbing Instructor History LMP: 11/26/2022 (Exact Date), Having periods Age at Menarche: 12 Age at First : 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 As applicable, any other physician, advance practice provider, medical student, or other health professional student that will be observing or involved in the sensitive examination for educational or training purposes was discussed with the Patient or Authorized Machine Tool Dresser. The Patient or Authorized Machine Tool Dresser has agreed to proceed with the sensitive [...] external genitalia normal, normal Bartholin's glands, urethra, Norton's glands, no vulvar lesions, no cervical lesions, [...] to patient via phone. Patient verbalizes understanding. [employer] message sent for patients reference as requested. [facility] 06-25-2024 Miscellaneous Notes Message has been relayed to patient via phone. Patient verbalizes understanding. [employer] message sent for patients reference as requested. I recommend she sees certified breastfeeding educator to review pump options- I am [...] Insulin Lispro. Would like pen-injector sent to [facility] Discussed with provider in office Please advise Patient needs a new pump other than medtonic pump. She also needs pen novolog while she awaits a new pump documented in this encounter [facility] 06-25-2024 Telephone encounter Note I recommend she sees certified breastfeeding educator to review pump options- I am [...] further questions or concerns, Jessica Guerrero APRN.FRIEDA [facility] 06-25-2024 Telephone encounter Note JOSE- [...] Insulin Lispro. Would like pen-injector sent to [facility] Discussed with provider in office Please advise [facility] 06-24-2024 Telephone encounter Note Patient needs a new pump other than medtonic pump. She also needs pen novolog while she awaits a new pump [facility] Work Phone: 06-17-2024 Telephone encounter [...] name: Dr. Joshua Quinteros [facility] 06-11-2024 Note [facility] 05-24-2024 Telephone encounter Note Spoke to pt. JOSE 03/12/24 ( we can sent notes over, if needed) 07/19/24 We have not received any new order forms from [facility] or [employer]. Advised pt to reach out. [...] 03/12/24 Lewis NOV 05/28/24 Josue Pt uses [facility] for supplies Has had loaner pump x3 months through [employer] and now has to return it or pay $3000 out of pocket. Advised pt she has to call [facility] and have them send us an [...] pay the $3000,was told to call her anti tank missileman for assistance. documented in this encounter [facility] 05-24-2024 Telephone encounter Note Patient has to reschedule her may appt and will be completely out of her pump supplies before her next June appt. Please advise she needs her pump suppllies [facility] Work Phone: 05-17-2024 Telephone encounter Note Lantus refill sent in. Please keep me updated if any issues. Jessica Guerrero APRN.CNP [facility] 05-17-2024 Telephone encounter Note JOSE 03/12/24 Joshua CAMPA 05/28/24 Josue Pt uses [facility] for supplies Has had loaner pump x3 months through [employer] and now has to return it or pay $3000 out of pocket. Advised pt she has to call [facility] and have them send us an order form for a new pump (have to see if insurance will pay for a new pump- Old pump was 5 years old) Told pt she has to let us know if she is without a pump and needs insulin ordered. Verbalized understanding. [facility] 05-16-2024 Telephone encounter Note Pt got [...] pay the $3000,was told to call her anti tank missileman for assistance. [facility] 05-06-2024 Telephone encounter Note Medication: Skyrizi 150mg/ml Dosing Schedule: 150mg every 12 weeks Prior Authorization: Submitted date: 05.06.2024 PA reference #: [id number] Approval dates: 05.06.2024-08.27.2024 Caitie Light Liaison [facility] [phone] [facility] 05-06-2024 Miscellaneous Notes Medication: Skyrizi 150mg/ml Dosing Schedule: 150mg every 12 weeks Prior Authorization: Submitted date: 05.06.2024 [place] reference #: [id number] Approval dates: 05.06.2024-08.27.2024 Caitie Light Liadick [facility] [phone] documented in this encounter [facility] 04-08-2024 Telephone encounter Note Prescription Refill Information [...] Hyperglycemia: Yes, but rare Type of Monitor: [employer] 630G/ Guardian Frequency of Monitorin-8 times a [...] hyperglycemia, with long-term current use of insulin ([facility]) (primary encounter diagnosis) (Z96.41) Insulin pump status [...] which included preparing to see the patient, [id number] patient care, completing clinical documentation, communicating results to the patient/family/caregiver, and care coordination (not separately reported). documented in this encounter [facility] 03-12-2024 Note HNO ID: [id number] Author: LISA AGUILAR LPN Service: ? Author Type: Physician Type: Progress Notes Filed: 03/12/2024 15:01 Note Text: Last Visit: 12/13/2023 Ms. Villa is here for follow up regarding her DM Type 1. Is patient interested in MyChart? Patient uses it SMBG: Hyperglycemia: Yes, but rare Type of Monitor: [employer] 630G/ Guardian Frequency of Monitorin-8 times a [...] mg/dL Insulin du (more content not included)... [facility] 03-05-2024 Telephone encounter Note Faxed and [...] encounter Note On your desk. Please sign [facility] 03-02-2024 Telephone encounter Note Patient has been identified by name and date of : Yes Type of form: [employer] Form received via: Fax When form is completed, fax form to fax number provided. Form has been forwarded to: SILVINO Liriano [facility] 02-14-2024 Telephone encounter Note Spoke with patient via phone and reviewed orders per [facility] notes. The patient is currently taking [...] understanding. No further questions at this time. [facility] 02-14-2024 Miscellaneous Notes Spoke with patient via phone and reviewed orders per [facility] notes. The patient is currently taking [...] pump on. Patient can be reached at [phone] documented in this encounter [facility] 02-14-2024 Telephone encounter Note Patient stated that her 630G pump malfunctioned and she had to get a new one. Patient needs to now what settings to put the pump on. Patient can be reached at [phone] [facility] 02-13-2024 Telephone encounter Note Images from the original note were not included. Returned patient's call. Pt states her pump got water on it and stopped working. Pt requests back up medication. Lantus and Humalog sent to the pharmacy of patient's preference. Jenn Solo MD Clinical Fellow PGY-4 Endocrinology and Metabolism [place] [facility] 02-13-2024 Miscellaneous Notes Images from the original note were not included. Returned patient's call. Pt states her pump got water on it and stopped working. Pt requests back up medication. Lantus and Humalog sent to the pharmacy of patient's preference. Jenn Solo MD Clinical Fellow PGY-4 Endocrinology and Metabolism [place] documented in this encounter [facility] 01-25-2024 Telephone encounter Note Returned pt's call. Pt scheduled for 02/01/24 for ILK. [facility] 01-25-2024 Miscellaneous Notes Returned pt's call. Pt [...] not helping either. documented in this encounter [facility] 01-24-2024 Telephone encounter Note Patient left a voicemail on the nurses line returning ileana's call. [facility] 01-24-2024 Miscellaneous Notes Patient left a voicemail [...] not helping either. documented in this encounter [facility] 01-24-2024 Telephone encounter Note Attempted to contact patient to offer/schedule for ILK injection to the stubborn spot on her scalp. Advised to return call if she would like to schedule. [facility] 01-23-2024 Telephone encounter Note Spoke to patient today to set up delivery of Skyrizi. She states that she has a stubborn spot on her scalp that is not going away. Everything else is going well but the topicals are not helping either. [facility] 12-15-2023 Note HNO ID: [id number] Author: KYARA LUIS RN Service: ? Author [...] discharged from care coordination. 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 [3612] Prescriptions as of 12/15/2023 [...] (post-traumatic stress disorder) [F43.10] 12/25/2012 DVT prophylaxis [[id number]] 12/25/2012 09/04/2013 DISPOSITION AND FOLLOW-UP [V999.01] 12/25/2012 09/04/2013 HTN (hypertension) [I10] Hypertension in , antepartum [O16.9] 09/19/2013 01/08/2014 GBS (group B Streptococcus carrier), +RV cultur*11/11/2013 04/16/2014 [Z34.90] 11/22/2013 04/16/2014 Diabetes mellitus in (HCC) [O24.919] 12/25/2013 04/16/2014 Diabetic ketoacidosis without coma associated w*01/08/2014 02/04/2023 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 [facility] 12-13-2023 Instructions Jessica Guerrero APRN.FRIEDA - 12/13/2023 [...] Other maternal great grandma I reviewed the Desulphuring Operator's notes with this visit for vital signs, [...] grandmother DM2 She is living at a jail currently, will be moving at the end [...] patient is currently taking Humalog insulin via [employer] 630G insulin pump in manual mode at [...] hyperglycemia, with long-term current use of insulin ([facility]) (primary encounter diagnosis) (Z96.41) Insulin pump status - Worsening control - She is having frequent lows - Will adjust basal rate to help prevent low readings - I will reach out to [employer] regarding why CGM order is delayed as [...] months. Jessica Guerrero APRN.CNP Endocrinology & Metabolism [place] Some elements in this note were copied from my last note and have been updated as appropriate and reflect medical decision making today. documented in this encounter [facility] 12-13-2023 Note HNO ID: [id number] Author: JESSICA GUERRERO APRN.CNP Service: ? Author [...] Other maternal great grandma I reviewed the Desulphuring Operator's notes with this visit for vital signs, [...] living at a (more content not included)... [facility] 11-22-2023 Note HNO ID: [id number] Author: KYARA LUIS RN Service: ? Author [...] TCM completed will follow for care coordination. Inclusion Special Educator plan for next outreach: Will follow up Kyara Luis RN November 22, 2023 2:29 PM [facility] 11-22-2023 Note Patient Outreach ([facility]) KATHLEEN VILLA ([id number]) 1995 F CHT Date Time Provider Department 11/22/23 [facility] During your visit today, we [...] TCM completed will follow for care coordination. Inclusion Special Educator plan for next outreach: Will follow up [...] (post-traumatic stress disorder) [F43.10] 12/25/2012 DVT prophylaxis [[id number]] 12/25/2012 09/04/2013 DISPOSITION AND FOLLOW-UP [V999.01] 12/25/2012 09/04/2013 HTN (hypertension) [I10] Hypertension in , antepartum [O16.9] 09/19/2013 01/08/2014 GBS (group B Streptococcus carrier), +RV cultur*11/11/2013 04/16/2014 [Z34.90] 11/22/2013 04/16/2014 Diabetes mellitus in (HCC) [O24.919] 12/25/2013 04/16/2014 Diabetic ketoacidosis without coma associated w*01/08/2014 02/04/2023 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] 01/08/2014 DVT prophylaxis [[id number]] 02/25/2014 04/16/2014 care and examination [Z39.2] 02/25/2014 [...] suprapubic [R10.2] 02/07/2023 (more content not included)... [facility] 11-14-2023 History of Present illness Narrative DATE OF SERVICE: 11/14/2023 PATIENT NAME: Kathleen Villa : 1995 AGE: 28 y.o. CLINIC NUMBER: [id number] Visit type: Established patient Chief Complaint Patient [...] reapply. 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 Patient advised to perform self-skin checks and call for follow up appointment if any new or concerning lesions detected. Follow up in about 1 year (around 11/13/2024) for Psoriasis f/u. Leesa Huddleston PA-C 11/14/23 5:13 PM REFERRING MD: documented in this encounter [facility] 11-10-2023 Note HNO ID: [id number] Author: KYARA LUIS RN Service: ? Author [...] yet to schedule but plans to call. Inclusion Special Educator plan for next outreach: Will follow up Priscilla Luis RN November 10, 2023 [facility] 11-10-2023 Note Patient Outreach ([facility]) KATHLEEN VILLA ([id number]) 1995 F CHT Date Time Provider Department 11/10/23 [facility] During your visit today, we recorded the following information about you: Kyara Luis RN 11/10/2023 1:21 PM Signed TRANSITION CARE MANAGEMENT (TCM) FOLLOW-UP NOTE Provider Action/FYI Summary: TCM follow up placed, [facility] blood sugars have remained stable. Had intake on Monday for IOP and has first appointment in November. States has all medications, taking as directed. Did received email with physicians in her area, has yet to schedule but plans to call. Inclusion Special Educator plan for next outreach: Will follow up [...] (post-traumatic stress disorder) [F43.10] 12/25/2012 DVT prophylaxis [[id number]] 12/25/2012 09/04/2013 DISPOSITION AND FOLLOW-UP [V999.01] 12/25/2012 09/04/2013 HTN (hypertension) [I10] Hypertension in , antepartum [O16.9] 09/19/2013 01/08/2014 GBS (group B Streptococcus carrier), +RV cultur*11/11/2013 04/16/2014 [Z34.90] 11/22/2013 04/16/2014 Diabetes mellitus in (HCC) [O24.919] 12/25/2013 04/16/2014 Diabetic ketoacidosis without coma associated w*01/08/2014 02/04/2023 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] 01/08/2014 DVT prophylaxis [[id number]] 02/25/2014 04/16/2014 care and examination [Z39.2] 02/25/2014 [...] Encounter Status:Closed by KYARA LUIS on 11/10/23 [facility] 11-10-2023 History of Present illness [...] yet to schedule but plans to call. Inclusion Special Educator plan for next outreach: Will follow up Signature Kyara Luis RN November 10, 2023 documented in this encounter [facility] 11-03-2023 Note HNO ID: [id number] Author: KYARA LUIS RN Service: ? Author Type: Registered Nurse Type: Progress Notes Filed: 11/03/2023 12:45 Note Text: Summary: TCM follow up TRANSITION CARE MANAGEMENT (TCM) FOLLOW-UP NOTE Provider Action/FYI Patient identified by name and date of : YES Summary: TCM follow up call placed, patient requesting call back at later date, currently resting Inclusion Special Educator plan for next outreach: Will follow up Priscilla Luis RN November 03, 2023 [facility] 11-03-2023 Note Patient Outreach ([facility]) KATHLEEN VILLA ([id number]) 1995 F CHT Date Time Provider Department 11/03/23 [facility] During your visit today, we recorded the following information about you: Kyara Luis RN 11/03/2023 12:45 PM Signed TRANSITION CARE MANAGEMENT (TCM) FOLLOW-UP NOTE Provider Action/FYI Patient identified by name and date of : YES Summary: TCM follow up call placed, patient requesting call back at later date, currently resting Inclusion Special Educator plan for next outreach: Will follow up [...] (post-traumatic stress disorder) [F43.10] 12/25/2012 DVT prophylaxis [[id number]] 12/25/2012 09/04/2013 DISPOSITION AND FOLLOW-UP [V999.01] 12/25/2012 09/04/2013 HTN (hypertension) [I10] Hypertension in , antepartum [O16.9] 09/19/2013 01/08/2014 GBS (group B Streptococcus carrier), +RV cultur*11/11/2013 04/16/2014 [Z34.90] 11/22/2013 04/16/2014 Diabetes mellitus in (HCC) [O24.919] 12/25/2013 04/16/2014 Diabetic ketoacidosis without coma associated w*01/08/2014 02/04/2023 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] 01/08/2014 DVT prophylaxis [FHP9280] 02/25/2014 04/16/2014 care and examination [Z39.2] 02/25/2014 [...] Encounter Status:Closed by KYARA LUIS on 11/03/23 [facility] 11-03-2023 History of Present illness Narrative Summary: TCM follow up TRANSITION CARE MANAGEMENT (TCM) FOLLOW-UP NOTE Provider Action/FYI Patient identified by name and date of : YES Summary: TCM follow up call placed, patient requesting call back at later date, currently resting Inclusion Special Educator plan for next outreach: Will follow up Signature Kyara Luis RN November 03, 2023 documented in this encounter [facility] 10-27-2023 Note HNO ID: [id number] Author: KYARA LUIS RN Service: ? Author Type: Registered Nurse Type: Progress Notes Filed: 10/27/2023 14:48 Note Text: Summary: TCM follow up TRANSITION CARE MANAGEMENT (TCM) FOLLOW-UP NOTE Provider Action/FYI Patient identified by name and date of : YES Discharge Network Status: Ozd-ij-Mmvdlvm (OON) Discharge Summary: TCM follow up call [...] may have to change to PCP in [place], has difficulty obtaining ride to [place]. Patient asked if name and number of locals physicians can be sent to her, sent via email. States has all medications, taking as directed. Inclusion Special Educator plan for next outreach: Will follow up Signature Kyara Luis RN October 27, 2023 [facility] 10-27-2023 History of Present illness Narrative Summary: TCM follow up TRANSITION CARE MANAGEMENT (TCM) FOLLOW-UP NOTE Provider Action/FYI Patient identified by name and date of : YES Discharge Network Status: Jwj-jd-Lpmxngx (OON) Discharge Summary: TCM follow up call placed to patient, was at ED on 10/25 due to anxiety, started on ativan which is helping. Per patient has thoughts of self harm/cutting, this has subsided, no suicidal ideation. Has [facility] and has evaluation on 11/05. Has been in contact with her counselor. Has number to crisis and encouraged to return to ED if new/worsening symptoms. Monitoring blood sugars, states have been stable. Per patient may have to change to PCP in [place], has difficulty obtaining ride to [place]. Patient asked if name and number of locals physicians can be sent to her, sent via email. States has all medications, taking as directed. Inclusion Special Educator plan for next outreach: Will follow up Signature Kyara Luis RN October 27, 2023 documented in this encounter [facility] 10-27-2023 Note Patient Outreach ([facility]) KATHLEEN VILLA ([id number]) 1995 F CHT Date Time Provider Department 10/27/23 [facility] During your visit today, we recorded the following information about you: Kyara Luis RN 10/27/2023 2:48 PM Signed TRANSITION CARE MANAGEMENT (TCM) FOLLOW-UP NOTE Provider Action/FYI Patient identified by name and date of : YES Discharge Network Status: Tio-cm-Jnjjfkj (OON) Discharge Summary: TCM follow up call [...] may have to change to PCP in [place], has difficulty obtaining ride to [place]. Patient asked if name and number of locals physicians can be sent to her, sent via email. has all medications, taking as directed. Inclusion Special Educator plan for next outreach: Will follow up [...] (post-traumatic stress disorder) [F43.10] 12/25/2012 DVT prophylaxis [[id number]] 12/25/2012 09/04/2013 DISPOSITION AND FOLLOW-UP [V999.01] 12/25/2012 09/04/2013 HTN (hypertension) [I10] Hypertension in , antepartum [O16.9] 09/19/2013 01/08/2014 GBS (group B Streptococcus carrier), +RV cultur*11/11/2013 04/16/2014 [Z34.90] 11/22/2013 04/16/2014 Diabetes mellitus in (HCC) [O24.919] 12/25/2013 04/16/2014 Diabetic ketoacidosis without coma associated w*01/08/2014 02/04/2023 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] 01/08/2014 DVT prophylaxis [AKO2009] 02/25/2014 04/16/2014 care and examination [Z39.2] 02/25/2014 [...] disease*04/18/2022 Chronic na (more content not included)... [facility] 10-20-2023 Note O ID: [id number] Author: KYARA LUIS RN Service: ? Author [...] having a difficult time at a homeless jail. Patient does attend weekly counseling at [facility], encouraged her to reach out to her counselor to discuss increased stress/anxiety levels and she plans on calling today. Per patient, no medication changes, blood sugar today is 156, state n/v resolving, Has all medications, taking as directed. . Patient identified by name and .Yes TCM Eligibility Documentation Program: Transitional Care Management Status: Identified Start Date: 10/18/2023 Responsible Staff: Kyara Luis case maker date: 10/18/2023 (Program start) Date of initial contact: 10/20/2023 Initial contact Target status: Successful; Contact made within 2 business days post-discharge SUMMARY: -Pt discharged from [facility] on 10/18/23. -Follow up appointment [...] per patient, her last A1C with her anti tank missileman was 6.7. She had however had recurrent [...] to follow up with her PCP and anti tank missileman as well as insurance commissioner o/a of gastroparesis. Patient seen and examined prior to discharge. She had no active complaints and had an uneventful night. Review of systems is otherwise negative. Labs and vitals reviewed. Home meds reviewed and reconciled. Kyara Luis RN [facility] 10-20-2023 History of Present illness [...] having a difficult time at a homeless jail. Patient does attend weekly counseling at [facility], encouraged her to reach out to her [...] post-discharge SUMMARY: -Pt discharged from [facility] on 10/18/23. -Follow up appointment [...] per patient, her last A1C with her anti tank missileman was 6.7. She had however had recurrent [...] to follow up with her PCP and anti tank missileman as well as insurance commissioner o/a of gastroparesis. Patient seen and examined prior to discharge. She had no active complaints and had an uneventful night. Review of systems is otherwise negative. Labs and vitals reviewed. Home meds reviewed and reconciled. Kyara Luis RN documented in this encounter [facility] 10-20-2023 Note Patient Outreach ([facility]) KATHLEEN VILLA ([id number]) 1995 F CHT Date Time Provider Department 10/20/23 [facility] During your visit today, we [...] having a difficult time at a homeless jail. Patient does attend weekly counseling at [facility], encouraged her to reach out to her counselor to discuss increased stress/anxiety levels and she plans on calling today. Per patient, no medication changes, blood sugar today is 156, state n/v resolving, Has all medications, taking as directed. . Patient identified by name and .Yes TCM Eligibility Documentation Program: Transitional Care Management Status: Identified Start Date: 10/18/2023 Responsible Staff: Kyara Luis case maker date: 10/18/2023 (Program start) Date of initial contact: 10/20/2023 Initial contact Target status: Successful; Contact made within 2 business days post-discharge SUMMARY: -Pt discharged from [facility] on 10/18/23. -Follow up appointment [...] per patient, her last A1C with her anti tank missileman was 6.7. She had however had recurrent [...] to follow up with her PCP and anti tank missileman as well as insurance commissioner o/a of gastroparesis. Patient seen and examined [...] Date Reviewed: 09/12/2023 Reviewed by: Graves, Lisa, RECREATION ENGINEER - Fully Assessed Reason for Visit: Transition [...] of 01/09/2020: All (more content not included)... [facility] 10-19-2023 Note HNO ID: [id number] Author: KYARA LUIS RN Service: ? Author Type: Registered Nurse Type: Progress Notes Filed: 10/19/2023 12:05 Note Text: Summary: TCM call TRANSITION CARE MANAGEMENT (TCM) FOLLOW-UP NOTE Provider Action/FYI Summary: TCM call placed to patient, no answer, message left to return my call at [phone] ext [phone] Inclusion Special Educator plan for next outreach: Will follow up Signature Kyara Luis RN October 19, 2023 [facility] 10-19-2023 Note Patient Outreach ([facility]) KATHLEEN VILLA ([id number]) 1995 F CHT Date Time Provider Department 10/19/23 [facility] During your visit today, we recorded the following information about you: Kyara Luis RN 10/19/2023 12:05 PM Signed TRANSITION CARE MANAGEMENT (TCM) FOLLOW-UP NOTE Provider Action/FYI Summary: TCM call placed to patient, no answer, message left to return my call at [phone] ext [phone] Inclusion Special Educator plan for next outreach: Will follow up [...] (post-traumatic stress disorder) [F43.10] 12/25/2012 DVT prophylaxis [[id number]] 12/25/2012 09/04/2013 DISPOSITION AND FOLLOW-UP [V999.01] 12/25/2012 09/04/2013 HTN (hypertension) [I10] Hypertension in , antepartum [O16.9] 09/19/2013 01/08/2014 GBS (group B Streptococcus carrier), +RV cultur*11/11/2013 04/16/2014 [Z34.90] 11/22/2013 04/16/2014 Diabetes mellitus in (HCC) [O24.919] 12/25/2013 04/16/2014 Diabetic ketoacidosis without coma associated w*01/08/2014 02/04/2023 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] 01/08/2014 DVT prophylaxis [EES5682] 02/25/2014 04/16/2014 care and examination [Z39.2] 02/25/2014 [...] Encounter Status:Closed by KYARA LUIS on 10/19/23 [facility] 10-19-2023 History of Present illness Narrative Summary: TCM call TRANSITION CARE MANAGEMENT (TCM) FOLLOW-UP NOTE Provider Action/FYI Summary: TCM call placed to patient, no answer, message left to return my call at [phone] ext [phone] Inclusion Special Educator plan for next outreach: Will follow up Signature Kyara Luis RN October 19, 2023 documented in this encounter [facility] 10-17-2023 History and physi cristina note Note Date/Time October 17, 2023 11:24am [facility] Medical Records Department [address] [place] [address] History & Physical Exam 10/17/23 1120 MR#: [id number] Acct: [id number] Name: KATHLEEN VILLA Rep #:[id number] : [...] DKA and an known type I diabetic. [facility] Medical History Anxiety Borderline personality [...] gauge x 1/2 (Ultra-Thin II Insulin Pen [facility]) #100 ea08/10/23 [Rx Last Taken Unknown] prochlorperazine [...] 88.4 H, Lymph % (Auto) 7.8 L, [place] % (Auto) 2.4, Eos % (Auto) 0.1, [...] was 6.7. * follows up with an anti tank missileman in [facility] in [place]. * last A1C from 08/07/2023 was 7 * #Gastroparesis in the setting of type 1 diabetes mellitus * on compazine. Add on phenergan prn * will benefit from metoclorpromide if nausea persists. * #Hypotension * BP is down in the 90s systolic. * will hydrate with IVF and trend. * DVT prpphylaxis: lovenox. Charges/Coding Visit Charges Inpatient E&M: 73650 Init Hosp L3 10/17/23 8684 <Electronically signed by Vita Jefferson MD> Cosigner Signature (if applicable): CC: Dr. Vita Jefferson MD; FUNMILAYO SMITH~ Signed [facility] Work Phone: 1(857) 602-152302-20-2024 Discharge summary Author Alexandro Garces [facility] October 17, 2023 11:38am Note Date/Time October 17, 2023 11:24am [facility] Medical Records Department [address] [place] [address] Emergency Department Summary 10/17/23 MR#: [id number] Acct: [id number] Name: KATHLEEN VILLA Rep #:[id number] : [...] Alvarez RN - Last Filed: 10/17/23 11:31> [facility] Medical History Anxiety Borderline personality [...] gauge x 1/2 (Ultra-Thin II Insulin Pen [place]) #100 ea08/10/23 [Rx Last Taken Unknown] ibuprofen [...] Medical decision making narrative: Patient placed on car scrubber. IV line initiated. Labwork obtained to evaluate [...] 88.4 H Lymph % (Auto) 7.8 L Desoto % (Auto) 2.4 Eos % (Auto) 0.1 [...] Garces MD - Last Filed: 10/17/23 11:38> [facility] Narrative Medical decision making narrative: Patient placed on car scrubber. IV line initiated. Labwork obtained to evaluate [...] 88.4 H Lymph % (Auto) 7.8 L [place] % (Auto) 2.4 Eos % (Auto) 0.1 [...] minutes, Including time spent:, Discussing w/Patient &/or Family/Apple Thinner, Discussing w/Consultants, Arranging Admission or Transfer, Performing Direct Patient Care at Bedside and - (35 minutes) Discharge Plan Dx/Rx/DC Orders Clinical Impression: DKA (diabetic ketoacidosis), Tachycardia, Nausea & vomiting, Acute dehydration Disposition Disposition: [facility] What to do if you have Problems For any increased pain, shortness of breath, bleeding, nausea or vomiting, chest pain, or any unexpected problems, contact your Primary Care Provider. Call [facility] ([phone]) or report to the closest Emergency Room. Call 911 if necessary. 10/17/23 1138 <Electronically signed by Alexandro Garces MD> Cosigner Signature (if applicable): 10/17/23 1131 <Electronically signed by Jacqueline Alvarez RN> CC: FUNMILAYO SMITH ~ Signed [facility] Work Phone: 1(814) 447-664702-15-2024 NoteHNO ID: [id number] Author: KYARA LUIS RN Service: ? Author Type: Registered Nurse Type: Progress Notes Filed: 10/12/2023 14:16 Note Text: Summary: PCC follow up PRIMARY CARE COORDINATION FOLLOW-UP NOTE Provider Action/FYI Patient identified by name and date of . YES Summary: PCC follow up placed to patient, has moved out of jail, now sharing and apartment. Per patient is [...] 100 mg/dL or on a high statin Inclusion Special Educator plan for next outreach: Will follow up Priscilla Luis RN October 12, [facility]23[facility] NotePatient Outreach ([facility]) KATHLEEN VILLA ([id number]) 1995 F T Date Time Provider Department 10/12/23 [facility] During your visit today, we recorded the following information about you: Kyara Luis RN 10/12/2023 2:16 PM Signed PRIMARY CARE COORDINATION FOLLOW-UP NOTE Provider Action/GWENDOLYNI Patient identified by name and date of . YES Summary: PCC follow up placed to patient, has moved out of jail, now sharing and apartment. Per patient is [...] 100 mg/dL or on a high statin 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 [8231] Prescriptions as of 10/12/2023 - promethazine (PHENERGAN) [...] Marfan syndrome [Q87.40] 12/25/2012 DM (diabetes mellitus) ([facility]) [E11.9] 12/25/2012 Gastroparesis due to DM (HCC) [E11.43, K31.84] 12/25/2012 PTSD (post-traumatic stress disorder) [F43.10] 12/25/2012 DVT prophylaxis [ZOF2779] 12/25/2012 09/04/2013 DISPOSITION AND FOLLOW-UP [V999.01] 12/25/2012 09/04/2013 HTN (hypertension) [I10] Hypertension in , antepartum [O16.9] 09/19/2013 01/08/2014 GBS (group B Streptococcus carrier), +RV cultur*11/11/2013 04/16/2014 [Z34.90] 11/22/2013 04/16/2014 Diabetes mellitus in (HCC) [O24.919] 12/25/2013 04/16/2014 Diabetic ketoacidosis without coma associated w*01/08/2014 02/04/2023 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] 01/08/2014 DVT prophylaxis [OQP9337] 02/25/2014 04/16/2014 care and examination [Z39.2] 02/25/2014 [...] [K59.04] 11/18/2021 Menstrual i (more content not included)...[facility] History of Present illness Narrative* Kyara Luis, RN - 10/12/2023 1:55 PM EST Summary: PCC follow up PRIMARY CARE COORDINATION FOLLOW-UP NOTE Provider Action/FYI Patient identified by name and date of . YES Summary: PCC follow up placed to patient, has moved out of jail, now sharing and apartment. Per patient is [...] 100 mg/dL or on a high statin Inclusion Special Educator plan for next outreach: Will follow up [...] [facility] Note[facility] Outreach ([facility]) KATHLEEN VILLA ([id number]) 1995 F CHT Date Time Provider Department [...] Per patient has been moved to different jail in [place] and will not be moving to [place]. States blood sugars are stable. Using insurance for transportation and will need to call them to update her new address. Has all medications, taking as directed. 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 [3611] Prescriptions as of 09/29/2023 - promethazine (PHENERGAN) [...] (post-traumatic stress disorder) [F43.10] 12/25/2012 DVT prophylaxis [QPA9220] 12/25/2012 09/04/2013 DISPOSITION AND FOLLOW-UP [V999.01] 12/25/2012 09/04/2013 HTN (hypertension) [I10] Hypertension in , antepartum [O16.9] 09/19/2013 01/08/2014 GBS (group B Streptococcus carrier), +RV cultur*11/11/2013 04/16/2014 [Z34.90] 11/22/2013 04/16/2014 Diabetes mellitus in (HCC) [O24.919] 12/25/2013 04/16/2014 Diabetic ketoacidosis without coma associated w*01/08/2014 02/04/2023 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] 01/08/2014 DVT prophylaxis [ECF8359] 02/25/2014 04/16/2014 care and examination [Z39.2] 02/25/2014 [...] 02/07/2023 Encounter Status:Closed by KYARA LUIS on 09/29/23[facility] 09-29-2023 NoteHNO ID: [id number] Author: KYARA LUIS RN Service: ? Author Type: Registered Nurse Type: Progress Notes Filed: 09/29/2023 11:04 Note Text: Summary: PCC follow up PRIMARY CARE COORDINATION FOLLOW-UP NOTE Provider Action/FYI Patient identified by name and date of . YES Summary: Follow up call placed to patient, states continues to have nausea, taking compazine. Per patient has been moved to different jail in [place] and will not be moving to [place]. States blood sugars are stable. Using insurance for transportation and will need to call them to update her new address. Has all medications, taking as directed. Inclusion Special Educator plan for next outreach: Will follow up Signature Kyara Luis RN September 29, 2023[facility] History of Present illness Narrative* Kyara Luis RN - 09/29/2023 10:48 AM ESTSummary: PCC follow up PRIMARY CARE COORDINATION FOLLOW-UP NOTE Provider Action/FYI Patient identified by name and date of . YES Summary: Follow up call placed to patient, states continues to have nausea, taking compazine. Per patient has been moved to different jail in [place] and will not be moving to [place]. States blood sugars are stable. Using insurance for transportation and will need to call them to update her new address. Has all medications, taking as directed. Inclusion Special Educator plan for next outreach: Will follow up Signature Kyara Luis RN September 29, 2023 [facility]24 NoteHNO ID: [id number] Author: KYARA LUIS RN Service: ? 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 Patient has been living in homeless jail in [place] making it difficult to keep appointments, also needing follow up with PCP. plan is to be moving to [place] and will be staying at [facility]. Message to office Spoke with patient aware phenergan filled and PCP scheduled for 10/03/23 Patient identified by name and date : YES SUMMARY: -Patient discharged from [place] ED on 09/20/22. 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 Patient has been living in homeless jail in [place] making it difficult to keep appointments, also needing follow up with PCP. plan is to be moving to [place] and will be staying at [facility]. Message to office Spoke with patient aware phenergan filled and PCP scheduled for 10/03/23 Patient identified by name and date : YES SUMMARY: -Patient discharged from [place] ED on 09/20/22. -Follow up appointment on [...] LPN - Fully Assessed Reason for Visit: Coal Picker Ed Follow Up [6487] Order(s):promethazine (PHENERGAN) 25 mg tabletTake 1 tablet [...] K31.84] 12/25/2012 PTSD (post-t (more content not included)...[facility]12-21-2023 Telephone encounter Note* Telephone Encounter - Mary Moreno PharmD - 08/17/2023 12:47 PM EST SUBJECTIVE Kathleen Villa is a 28 year old Female who was referred to [facility] for clinical management services for Skyrizi 150 MG/ML. Diagnosis Psoriasis vulgaris L40.0 OBJECTIVE Medications: Betamethasone Valerate 0.1 % CREA EX Clobetasol Propionate 0.05 % SOLN EX Dickson-Smoothe/FS Body 0.01 % OIL EX Levothyroxine Sodium [...] knows we are available M-F 8-5 at [phone]. Mary Moreno Clinical Pharmacist [id number] Miscellaneous Notes* Telephone Encounter - Mary Moreno PharmD - 08/17/2023 12:47 PM EST SUBJECTIVE Kathleen Villa is a 28 year old Female who was referred to [facility] for clinical management services for Skyrizi 150 MG/ML. Diagnosis Psoriasis vulgaris L40.0 OBJECTIVE Medications: Betamethasone Valerate 0.1 % CREA EX Clobetasol Propionate 0.05 % SOLN EX Dickson-Smoothe/FS Body 0.01 % OIL EX Levothyroxine Sodium [...] Patient knows we are available 04-01 at [phone]. Mary Moreno Clinical Pharmacist [facility] documented in this [facility]12-19-2023 NotePatient Outreach (MRCAC) KATHLEEN VILLA ([id number]) 1995 F T Date Time Provider Department 08/15/23 [facility]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 Boothe RN [...] with no further needs at this time. [id number] Note* Plan of Care - Liang Boothe [...] comfort function goal Outcome: Partially Met T [id number] Note* Pharmacy Note - Felicia Montes [facility],PharmD - 03/21/2023 1:30 PM EDT Pharmacotherapy [...] per the patient are well within the culvert installer expiration date and have been stored at roomtemperature (<28 days). She recently switched to Humalog and said the pump was refilled with brand new insulin before admission. Continue with insulin regimen as written. Please call pharmacy with any questions. Pharmacist: Felicia Montes Date: 03/21/2023 Contact Information: [phone] or Vocera [id number] Note* Plan of Care - Liang Boothe [...] of comfort function goal Outcome: Partially Met [id number] Note* Quick Note - Liang Purcell RN - 03/20/2023 6:32 PM EDT Admission skin assessment completed by this nurse and STIVEN Caceres. No skin issues identified at this time. [id number] Note* Plan of Care - Liang Purcell [...] of comfort function goal Outcome: Partially Met [id number] Note* ED Procedure Note - Siddharth Gagnon [...] normal T Waves: T waves normal normal FL interval QT Interval: 514 Clinical impression: non-specific ECG and sinus bradycardia [facility] Work Phone: 1(879) 365-253007-24-2023 Emergency department Note* Zee Chahal RN - 03/20/2023 11:22 AM EDT Bed: 36 Expected date: Expected time: Means of arrival: Comments: ROOM 14 [id number] Emergency department Note* Zee Chahal RN - 03/20/2023 11:22 AM EDT Bed: 36 Expected date: Expected time: Means of arrival: Comments: ROOM 14 * Mariel Gagnon MD - 03/20/2023 6:01 AM EDTAssociated Order(s): EKG 12-lead [facility] ATTENDING NOTE: NAME: Kathleen Villa CSN: [id number] 27 y.o. PCP: No, Physician History: Chief [...] All other components within normal limits Narrative: [facility] Laboratory Services has implemented the eGFR [...] All other components within normal limits Narrative: [facility] Laboratory [facility] has implemented the eGFR calculation [...] All other components within normal limits Narrative: [facility] [employer] [facility] has implemented the eGFR calculation [...] Procedure Abnormality Status --------- ------ CBC Auto Differential[[id number]] Abnormal Final result Please view results for [...] Note made of prior appendectomy surgical clips. [facility]/cdr Workstation ID: [id number] Procedures: EKG [...] 12.5 mg (12.5 mg Rectal Given 03/20/23 5686) After reviewing the items above, I did [...] available in inpatient encounters. Please contact a public address systems mechanic. Mariel Gagnon MD ED Attending Physician [facility] (Please note that portions of this [...] 217about an hour ago documented in this [id number] History and physical note* Ernie Ireland MD - 03/20/2023 11:17 AM EDT [facility] HISTORY AND PHYSICAL -- [facility] Patient Name: Kathleen Villa : 1995 MR #: [id number] Admit Date: 03/20/2023 Physicians: No, Physician (Family); [...] fluid boluses and antiemetics and admitted to [facility] for further management. Past Medical [...] normal coloration Psych: normal mood and affect [id number] History and physical note* Ernie Ireland MD - 03/20/2023 11:17 AM EDT [facility] HISTORY AND PHYSICAL -- [facility] Patient Name: Kathleen Villa : 1995 MR #: [id number] Admit Date: 03/20/2023 Physicians: No, Physician (Family); [...] fluid boluses and antiemetics and admitted to [facility] for further management. Past Medical [...] normal mood and affect documented in this [id number] Note* ED Update Note - Mary [place] [...] be admitted for further evaluation and treatment. [id number] Physician Emergency department Note* Mariel Gagnon MD - 03/20/2023 6:01 AM EDTAssociated Order(s): EKG 12-lead [facility] ATTENDING NOTE: NAME: Kathleen Villa CSN: [id number] 27 y.o. PCP: No, Physician History: Chief [...] All other components within normal limits Narrative: [facility] Laboratory Services has implemented the eGFR [...] All other components within normal limits Narrative: [facility] Laboratory [facility] has implemented the eGFR calculation [...] All other components within normal limits Narrative: [facility] [employer] [facility] has implemented the eGFR calculation [...] Procedure Abnormality Status --------- ------ CBC Auto Differential[[id number]] Abnormal Final result Please view results for [...] 12.5 mg (12.5 mg Rectal Given 03/20/23 3744) After reviewing the items above, I did [...] available in inpatient encounters. Please contact a public address systems mechanic. Mariel Gagnon MD ED Attending Physician [facility] (Please note that portions of this note have been completed with a voice recognition software. Efforts were made to correct any errors, but occasionally words are mis-transcribed.) Mariel Gagnon MD 03/21/23 1439 [facility] Work Phone: 1(114) 452-673907-24-2023 Emergency department Note* Tony Hernandez RN - 03/20/2023 4:26 AM EDT PT STATES THAT SHE CAN NOT PROVIDE URINE SAMPLE AND SHE NEEDS STRAIGHT CATH PERFORMED. [id number] Emergency department Triage note* Queta Arias RN - 03/20/2023 2:17 AM EDT Pt c/o vomiting and abdominal pain that started today, also c/o chest pain, states last bgl was 217about an hour ago [id number] NotePatient Outreach (MRCAC) KATHLEEN VILLA ([id number]) 1995 F T Date Time Provider Department 02/08/23 [facility] During your visit today, we [...] with GI and medication changes made, will pickers material handlers new medication from her pharmacy. States that vomiting has resolved, tolerating diet, does have nausea and is on compazine and phenergan at home. Monitors blood sugar 5 times per day, FBS this am 131, has insulin pump and adjust according to carbohydrate intake. Currently waiting on continuous glucose monitor that was ordered at her last endocrinology appointment [facility], patient calling today to follow up [...] -Admitted for: Vomiting/diabetic gastroparesis -Pt discharged from [facility] on 02/04. -Follow up appointment: Has had f/u with GI, declines sooner PCP appointment at this time . -Medication review completed. NEW OR CHANGED MEDICATIONS:NA MEDS HELD/DISCONTINUED:NA BRIEF HOSPITAL COURSE: 27-year-old white female who presented 2 days ago on 01/31 secondary to nausea and vomiting at home. Patient has a known history of diabetic gastroparesis. She follows in [facility]. She was admitted to [place]. Unfortunately she has not been tolerating p.o. intake with the exception of some ice chips Patient would be started on insulin drip while in the ICU. Anion gap would close and the patient would be transitioined to a diet. Blood sugars would remain stable once restarting her insulin pump. She will cotninue following with her personal anti tank missileman outpatient. Follow up with PCP in one [...] 4 gram chewable tablet (more content not included)...[facility]06-14-2023 NoteHNO ID: [id number] Author: Kyara Luis RN Service: ? Author [...] with GI and medication changes made, will pickers material handlers new medication from her pharmacy. States that vomiting has resolved, tolerating diet, does have nausea and is on compazine and phenergan at home. Monitors blood sugar 5 times per day, FBS this am 131, has insulin pump and adjust according to carbohydrate intake. Currently waiting on continuous glucose monitor that was ordered at her last endocrinology appointment through [facility], patient calling today to follow up [...] -Admitted for: Vomiting/diabetic gastroparesis -Pt discharged from [facility] on 02/04. -Follow up appointment: Has had f/u with GI, declines sooner PCP appointment at this time . -Medication review completed. NEW OR CHANGED MEDICATIONS:NA MEDS HELD/DISCONTINUED:NA BRIEF HOSPITAL COURSE: 27-year-old white female who presented 2 days ago on 01/31 secondary to nausea and vomiting at home. Patient has a known history of diabetic gastroparesis. She follows in [facility]. She was admitted to [place]. Unfortunately she has not been tolerating p.o. intake with the exception of some ice chips Patient would be started on insulin drip while in the ICU. Anion gap would close and the patient would be transitioined to a diet. Blood sugars would remain stable once restarting her insulin pump. She will cotninue following with her personal anti tank missileman outpatient. Follow up with PCP in one week. Vital signs were stable on discharge. Patient understood and agreed with discharge plan You may be receiving a survey about your experience. We really value your feedback. If you would fill out the survey, it would help us tremendously as we continue to improve. Kyara Luis RN February 08, 2023 11:36 [facility]06-14-2023 History of Present illness Narrative* [...] with GI and medication changes made, will pickers material handlers new medication from her pharmacy. States that vomiting has resolved, tolerating diet, does have nausea and is on compazine and phenergan at home. Monitors blood sugar 5 times per day, FBSthis am 131, has insulin pump and adjust according to carbohydrate intake. Currently waiting on continuous glucose monitor that was ordered at her last endocrinology appointment through [facility], patient calling today to follow up [...] -Admitted for: Vomiting/diabetic gastroparesis -Pt discharged from [facility] on 02/04. -Follow up appointment: Has had f/u with GI, declines sooner PCP appointment at this time . -Medication review completed. NEW OR CHANGED MEDICATIONS:NA MEDS HELD/DISCONTINUED:NA BRIEF HOSPITAL COURSE: 27-year-old white female who presented 2 days ago on 01/31 secondary to nausea and vomiting at home. Patient has a known history of diabetic gastroparesis. [facility]. She was admitted to [place]. Unfortunately she has not been tolerating p.o. intake with the exception of some ice chips Patient would be started on insulin drip while in the ICU. Anion gap would close and the patient would be transitioined to a diet. Blood sugars would remain stable once restarting her insulin pump. She will cotninue following with her personal anti tank missileman outpatient. Follow up with PCP in one [...] [facility] NotePatient Outreach (MRCAC) KATHLEEN VILLA ([id number]) 1995 F CHT Date Time Provider Department 02/06/23 [facility] During your visit today, we recorded the following information about you: Kyara Luis RN 02/06/2023 11:56 AM Signed TRANSITION CARE MANAGEMENT (TCM) FOLLOW-UP NOTE Provider Action/FYI Patient identified by name and date of : YES Summary: Transitional care call placed to patient, message left to return my call at [phone] Inclusion Special Educator plan for next outreach: Will follow up [...] 02/01/2023 Encounter Status:Closed by KYARA LUIS on 02/06/23[facility] 02-06-2023 NoteHNO ID: [id number] Author: Kyara Luis RN Service: ? Author Type: Registered Nurse Type: Progress Notes Filed: 02/06/2023 11:56 AM Note Text: Summary: TCM call TRANSITION CARE MANAGEMENT (TCM) FOLLOW-UP NOTE Provider Action/FYI Patient identified by name and date of : YES Summary: Transitional care call placed to patient, message left to return my call at [phone] ext [phone] Inclusion Special Educator plan for next outreach: Will follow up this week Signature Kyara Luis RN February 06, 2023[facility]06-09-2023 NoteHNO ID: [id number] Author: Clemencia Rivera RN Service: PICC Team Author Type: Registered Nurse Type: Procedures Filed: 02/03/2023 2:30 PM Note Text: MIDLINE INSERTION PROCEDURE NOTE - PICC TEAM NURSES DATE OF PROCEDURE: 02/03/2023 TIME OF PROCEDURE: 1420 ORDERING PHYSICIAN: Juan Carlos Leroy CNP Indications for line placement: Intravenous access Condition of line placement: Sterile Primary Proceduralist: Lewis Fuentes RN Appliance Counselor: Clemencia Rivera RN Pre-procedure Review: ALLERGIES Allergen [...] RN Midline Catheter Placement: Brand: BARD Lot: [id number] Number of lumens: 1 Type of Midline: Power Injectable Midline Lumen size: 3 Czech Placement Technique: Lidocaine: Yes, Lidocaine 1% Volume [...] or problems: Call Vascular Access Nurse on [facility] SIGNATURE: Clemencia Rivera RN PATIENT NAME: Kathleen Villa DATE: February 03, 2023 TIME: 2:24 PM PAGER: Call Vascular Access Nurse on [facility] 02-03-2023 NoteHNO ID: [id number] Author: Mary Ordoñez RN Service: Nursing Author Type: Registered Nurse Type: Nursing Progress Note Filed: 02/03/2023 1:55 PM Note Text: Vascular access team at bedside setting up for ordered midline IV placement at this time.[facility]06-09-2023 NoteHNO ID: [id number] Author: Rubio Diana MD Service: Critical Care Author Type: Physician Type: Progress Notes Filed: 02/03/2023 11:39 AM Note Text: [facility] STAFF PHYSICIAN NOTE OF PERSONAL [...] care, medical plan for the day, it infrastructure consultant recommendations, medical disposition and current medical [...] Diana MD [facility] DATE of SERVICE: 02/03/2023[facility]06-09-2023 NoteHNO ID: [id number] Author: Yimi Leroy APRN.FRIEDA Service: Critical Care [...] 21 URINALYSIS: Recent Lab (more content not included)...[facility]06-08-2023 NoteHNO ID: [id number] Author: Rubio Diana MD Service: Critical Care Author Type: Physician Type: Progress Notes Filed: 02/02/2023 2:32 PM Note Text: [facility] STAFF PHYSICIAN NOTE OF PERSONAL [...] care, medical plan for the day, it infrastructure consultant recommendations, medical disposition and current medical [...] Diana MD [facility] DATE of SERVICE: 02/02/2023[facility]06-08-2023 NoteHNO ID: [id number] Author: Alex Mcrcay MD Service: Hospital Medicine Author Type: Physician Type: Progress Notes Filed: 02/02/2023 9:37 AM Note Text: INPATIENT PROGRESS NOTE SERVICE DATE: 02/02/2023 SERVICE TIME: 9:03 AM SUBJECTIVE: CHIEF COMPLAINT: Nausea, vomiting, abdominal pain INTERVAL HPI: Patient seen and examined. Patient is 27-year-old female with history of diabetes, gastroparesis, follows with insurance commissioner at [facility] who presented for abdominal pain, nausea, [...] bilaterally.] SKIN: [Clear, no evidence of bleeding.] TUGBOAT PILOT: [Patient awake, alert, oriented ?3. No focal [...] with history of diabetes, gastroparesis, follows with insurance commissioner at [facility] who presented for abdominal pain, nausea, vomiting for 1 day and on evaluation she was thought to have gastroparesis episode for which s (more content not included)...[facility]06-07-2023 NoteHNO ID: [id number] Author: Alex Mccray MD Service: Hospital Medicine Author Type: Physician Type: Progress Notes Filed: 02/02/2023 8:24 AM Note Text: INPATIENT PROGRESS NOTE SERVICE DATE: 02/01/2023 SERVICE TIME: 11:38 AM SUBJECTIVE: CHIEF COMPLAINT: Nausea, vomiting, abdominal pain INTERVAL HPI: Patient seen and examined. Patient is 27-year-old female with history of diabetes, gastroparesis, follows with insurance commissioner at [facility] who presented for abdominal pain, nausea, [...] bilaterally.] SKIN: [Clear, no evidence of bleeding.] TUGBOAT PILOT: [Patient awake, alert, oriented ?3. No focal [...] bowel. Consider CT if concern remains high. Fitness Leader: [facility] Transcribe Date/Time: Jan 31 2023 7:56P Dictated [...] QTC Calculation (Bazett) 463 ms Calculated P Dana 26 degrees Calculated R Dana 78 degrees Calculated T Dana 72 degrees Narrative NAME : KATHLEEN VILLA PID : [id number] : 1995 Gender : Female Race : ORD : [id number] Procedure Date : Jan 31 2023 19:42:30 Edit Date : Jan 31 2023 23:03:15 Diagnosis: Normal sinus rhythm Nonspecific T wave abnormality Abnormal ECG When compared with ECG of 23-NOV-2022 18:14, Nonspecific T wave abnormality now evident in Lateral leads QT has lengthened Confirmed by ANASTASIA CHENG MD ([id number]) on 01/31/2023 11:03:12 PM Test Reason : STAT Location : 0 : ED 9 Overread By : ANASTASIA CHENG MD Edited By : ANASTASIA CHENG MD Referred By : , Acquired by : [facility], Impression Normal sinus rhythm Nonspecific T wave abnormality Abnormal ECG When compared with ECG of 23-NOV-2022 18:14, Nonspecific T wave abnormality now evident in Lateral leads QT has lengthened Confirmed by PROSPER LOCKE, [facility] ([id number]) on 01/31/2023 11:03:12 PM CBC + DIFF [...] 4.00 k/uL Monocytes % 4.7 % Abs Desoto 0.73 <0.87 k/uL Eosinophils % 0.1 % Abs Eosin <0.03 <0.46 k/uL Basophils % 0.5 % Abs Baso 0.07 <0.11 k/uL (more content not included)...[facility]06-07-2023 Miscellaneous Notes * Telephone Encounter [...] documented in this [facility]23 NoteHNO ID: [id number] Author: Radha Mandel MA Service: ? Author Type: Desulphuring Operator Type: Progress Notes Filed: 01/25/2023 1:01 PM Note Text: Patient here today to recollect urine as previous urine culture was contaminated. Patient concerned as that was her second collection with multiple bacteria. Urine collected, dipped, and sent out for culture.[facility]05-31-2023 History of Present illness Narrative* Autumn Valadez APRN.SHORE HAND DREDGE OR BARGE - 01/25/2023 1:30 PM EDT Images from [...] (BAQSIMI) 3 mg/actuation nasal spray Use 1 [place] in the nose as needed for low [...] Other maternal great grandma I reviewed the Desulphuring Operator's notes with this visit for vital signs, [...] office visit notes from today [facility] in order to receive her Guardian [...] hyperglycemia, with long-term current use of insulin ([facility]) (primary encounter diagnosis) (Z96.41) Insulin pump status (Z13.5) Screening for diabetic retinopathy Comment: HgbA1C 7.6 % Labs: 2022 Cr 0.64 GFR 124 Plan: 1) Keep glucose tablets or hard candy with you at all times in case of a low blood sugar 2) Please bring meter and/or log book with you to your appointments 3) Will send chart notes to [facility] so she can get the Guardian CGM. [...] with FRIEDA Urena APRN.[facility] Endocrinology [facility] Met[facility] [place] Some elements in this note were copied [...] is showing multiple bacteria. Patient scheduled for [place] to collect another urine. Please sign orders. [...] - 01/24/2023 11:37 AM EDT Yaima from [facility] called and they need an order for a port flush. Pleaseplace order and I will fax. documented in this encounterBellevue [facility]05-26-2023 NoteHNO ID: [id number] Author: Nicolette Cox LPN Service: ? Author Type: LICENSED NURSE Type: Progress Notes Filed: 01/20/2023 3:16 PM Note Text: Gilda presents today for a 1 month follow up visit.Gilda continues to c/o abdominal pain that radiates to her back. She states she did not follow up with pain management.[facility]05-26-2023 NoteHNO ID: [id number] Author: Vivi Smith MD Service: ? Author [...] 200s/. She sees Endo next week. Seeing KEG FILLER and had recent negative pap smear and [...] (BAQSIMI) 3 mg/actuation nasal spray Use 1 [place]view in the nose as needed for low [...] movements intact. Conjunctiva/sclera: Conjunc (more content not included)...[facility] 01-12-2023 NoteHNO ID: [id number] Author: Madonna Toro, DO Service: ? Author [...] fevers GI: No nausea, vomiting, or diarrhea RAIL SIGNAL WORKER: Negative for abnormal vaginal bleeding, abnormal [...] Madonna Toro, [facility]05-18-2023 NoteHNO ID: [id number] Author: Faviola Engle MA Service: ? Author Type: Desulphuring Operator Type: Progress Notes Filed: 01/12/2023 1:32 PM Note Text: Pt was exposed to a std.[facility]05-16-2023 Miscellaneous Notes* Telephone Encounter - [...] sooner. She states she also left a Conerg[employer] message for Dr. Johansen who is through [...] admissions. Discharge Summary Fide Pitts MD (Physician) [facility] Medicine Expand All Collapse All [...] hyperglycemia, with long-term current use of insulin ([facility]); Insulin pump status LINZESS 72 mcg Take [...] hyperglycemia, with long-term current use of insulin ([facility]); Insulin pump status blood sugar diagnostic (CONTOUR NEXT TEST STRIPS) test strip Use as instructed to check blood glucose 5 times daily. E10.65 Qty: 500 Strip Refills: 3 Associated Diagnoses:Type 1 diabetes mellitus with hyperglycemia, with long-term current use of insulin ([facility]); Insulin pump status BAQSIMI 3 mg Use 3 mg in the nose as needed for low blood sugar. <span hidden class=[email or web address]></span>May repeat after 15 minutes using a new device if there is no response. Qty: 2 Each Refills: 2 Associated Diagnoses:Type 1 diabetes mellitus with hyperglycemia, with long-term current use of insulin ([facility]); Insulin pump status glucose 16 g Take 16 g by mouth as needed. Qty: 100 tablet Refills: 11 Associated Diagnoses:Type 1 diabetes mellitus with hyperglycemia, with long-term current use of insulin ([facility]); Insulin pump status insulin glargine (LANTUS SOLOSTAR, BASAGLAR KWIKPEN) 100 unit/mL (3 mL) Inject 43 Units subcutaneously as directed in the event of Insulin pump failure. Qty: 15 mL Refills: 1 Comments: Generic or brand: dispense product preferred by patient/insurance unless BRET flag is selected. Associated Diagnoses:Type 1 diabetes mellitus with hyperglycemia, with long-term current use of insulin ([facility]); Insulin pump status Acetone, Urine, Test (KETONE URINE TEST) Use as directed Qty: 100 Strip Refills: 5 Associated Diagnoses: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 ([facility]) hydrOXYzine HCl (ATARAX) 50 mg Take 50 mg by mouth every 6 hours as needed. FUTURE APPOINTMENTS: Follow Up with Gastroenterology: Ricci Burgess MD Discharge Information Row Name ED to Hosp-Admission (Current) from 11/23/2022 in MR 2M MED/SURG Medical Follow-Up Appointment Specialty Primary Care Provider Provider Name Dr. Smith Address [address] [place] [address], [place] [address] Appointment Date 12/08/22 Appointment Time 1:45pm The [...] type 1 with gastroparesis: Patient follows with insurance commissioner Dr. Leticia Hylton with several smart pill [...] tree and pancreatic region SIGNATURE: Kathleen Hicks APRN.SHORE HAND DREDGE OR BARGE PAST MEDICAL HISTORY Diagnosis Date Anxiety disorder [...] (BAQSIMI) 3 mg/actuation nasal spray Use 1 [place] in the nose as needed for low [...] Diagnosis ICD-10-CM 1. Gastroparesis due to DM ([facility]) E11.43 K31.84 2. Aortic root aneurysm ([facility]) I71.21 3. Primary hypertension I10 4. Chronic nausea R11.0 5. 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 ([facility]) E10.3553 6. Marfan syndrome Q87.40 7. PTSD (post-traumatic stress disorder) F43.10 8. Generalized abdominal pain R10.84 Per Hospital note reviewed but patient states her pain is different Will refer down to [facility] ED for further evaulation Stable at [...] medtronic 770G and will be meeting with [facility] for education on newpump. Patient currently [...] date of : Yes Type of form: [facility] form requesting question #6 sign and date [...] PM EDT Form and documentation faxed to [facility]. Lisa Aguilar LPN * Telephone Encounter - Kvng Lewis MD - 11/08/2022 12:49 PM EDT Form signed. * Telephone Encounter - Florence Murillo RN - 11/07/2022 3:19 PM EDT Received form from [facility] Form, 6 months of OV notes and CGM download on desk, please sign * Telephone Encounter - Lisa Aguilar LPN - 11/04/2022 11:15 AM EST Completed form faxed to [facility]. Lisa Aguilar LPN * Telephone Encounter [...] is completed, fax form to fax number provided.[phone] Form has been forwarded to: SILVINO Hayes [...] 02/25/2014 morning - On fentanyl gtt per NIGHTMAN Plan: - NIGHTMAN team to round on patient and manage [...] arise --- Follows with Dr. Garcia at [facility] Plan: - Continuous monitoring - F/u NIGHTMAN recs GBS (group B Streptococcus carrier), +RV [...] 02/25/2014 morning - On fentanyl gtt per NIGHTMAN Plan: - NIGHTMAN team to round on patient and manage [...] arise --- Follows with Dr. Garcia at [facility] Plan: - Continuous monitoring - F/u NIGHTMAN recs GBS (group B Streptococcus carrier), +RV [...] 02/25/2014 morning - On fentanyl gtt per NIGHTMAN Plan: - NIGHTMAN team to round on patient and manage [...] arise --- Follows with Dr. Garcia at [facility] Plan: - Continuous monitoring - F/u NIGHTMAN recs GBS (group B Streptococcus carrier), +RV [...] 02/25/2014 morning - On fentanyl gtt per NIGHTMAN Plan: - NIGHTMAN team to round on patient and manage [...] arise --- Follows with Dr. Garcia at [facility] Plan: - Continuous monitoring - F/u NIGHTMAN recs GBS (group B Streptococcus carrier), +RV [...] 02/25/2014 morning - On fentanyl gtt per NIGHTMAN Plan: - NIGHTMAN team to round on patient and manage [...] arise --- Follows with Dr. Garcia at [facility] Plan: - Continuous monitoring - F/u NIGHTMAN recs GBS (group B Streptococcus carrier), +RV [...] 02/25/2014 morning - On fentanyl gtt per NIGHTMAN Plan: - NIGHTMAN team to round on patient and manage [...] arise --- Follows with Dr. Garcia at [facility] Plan: - Continuous monitoring - F/u NIGHTMAN recs GBS (group B Streptococcus carrier), +RV [...] 02/25/2014 morning - On fentanyl gtt per NIGHTMAN Plan: - NIGHTMAN team to round on patient and manage [...] arise --- Follows with Dr. Garcia at [facility] Plan: - Continuous monitoring - F/u NIGHTMAN recs GBS (group B Streptococcus carrier), +RV [...] 02/25/2014 morning - On fentanyl gtt per NIGHTMAN Plan: - NIGHTMAN team to round on patient and manage [...] arise --- Follows with Dr. Garcia at [facility] Plan: - Continuous monitoring - F/u NIGHTMAN recs GBS (group B Streptococcus carrier), +RV [...] 02/25/2014 morning - On fentanyl gtt per NIGHTMAN Plan: - NIGHTMAN team to round on patient and manage [...] arise --- Follows with Dr. Garcia at [facility] Plan: - Continuous monitoring - F/u NIGHTMAN recs GBS (group B Streptococcus carrier), +RV [...] 02/25/2014 morning - On fentanyl gtt per NIGHTMAN Plan: - NIGHTMAN team to round on patient and manage [...] arise --- Follows with Dr. Garcia at [facility] Plan: - Continuous monitoring - F/u NIGHTMAN recs GBS (group B Streptococcus carrier), +RV [...] 02/25/2014 morning - On fentanyl gtt per NIGHTMAN Plan: - NIGHTMAN team to round on patient and manage [...] arise --- Follows with Dr. Garcia at [facility] Plan: - Continuous monitoring - F/u NIGHTMAN recs GBS (group B Streptococcus carrier), +RV [...] (BAQSIMI) 3 mg/actuation nasal spray Use 1 [place] in the nose as needed for low [...] (BAQSIMI) 3 mg/actuation nasal spray Use 1 [place] in the nose as needed for low [...] : 1995 AGE: 27 y.o. CLINIC NUMBER: [id number] Visit type: Established patient Chief Complaint Patient [...] 2:01 PM REFERRING MD: documented in this encounterSKnox Community [id number] Miscellaneous Notes* Telephone Encounter - David De Jesus RN - 09/07/2022 4:16 PM EST Completed PA via [employer]. CaseId:[id number]; Status:Approved; Valid08/08/2022 - 09/07/2023; Patient notified. * Telephone Encounter - Ira Maria - 09/06/2022 3:12 PM EST Pt's insurance will no longer cover any contour products. She needs scripts for new meter, test strips and lancets [facility] [email or web address] on file. States her insurance will cover just about anything other than contour products. She requests a brand that is compatible with her medtronic pump, if possible. documented in this encounterBellevue Hospital12-22-2022 Miscellaneous Notes* Telephone Encounter - Lisa Aguilar LPN - 08/18/2022 3:37 PM EST Faxed completed form, last 2 Visit Progress Notes and pump upload to [facility]. Lisa Aguilar LPN * Telephone [...] PM EST Forms received via fax from [facility] for CGM and pump supplies. [facility] is requiring Last 2 office visit notes and Medtronic pump download. Called patient to verify needs. Patient needs replacement for 630 Medtronic pump and Guradian sensors. Patient initial visit, Virtual Visit with Dr. Lewis on 07/11/2022. Next visit to be scheduled with Autumn Valadez CNP in person 1-3 months. Patient aware [facility] requires pump download, will download at [...] (BAQSIMI) 3 mg/actuation nasal spray Use 1 [place] in the nose as needed for low [...] Other maternal great grandma I reviewed the Desulphuring Operator's notes with this visit for vital signs, [...] patient is currently taking Novolog insulin via [employer] 630G insulin pump in manual mode at [...] hyperglycemia, with long-term current use of insulin ([facility]) (primary encounter diagnosis) (Z96.41) Insulin pump status [...] November with Dr. Lewis 6 mo with wi Autumn Valadez APRN.[facility] Endocrinology & Metabolism [place] documented in this encounterBellevue Hospital11-14-2022 History of Present illness Narrative* Kvng Lewis MD - 07/11/2022 11:00 AM EST VIRTUAL VISIT DIABETES NOTE Reason for Consultation: DM Type 1 HISTORY OF PRESENT ILLNESS: Ms. Villa is a 26 year old female presenting here today for a follow up of DM Type 1. She would like to transfer to care Dr. Khoury Lives in [place] [address] dx age 14 ( 12 years) Known [...] due to convenient location She lives in [place]. Dr. Khoury was managing patient during her [...] mouth every 6 hours as needed. lancets ([employer] LANCETS) 30 gauge 10 x daily DX [...] year old female is being evaluated via [facility] for DM1 Complicated patient with complex [...] encourage patient to schedule appt with our WHEAT INSPECTOR Autumn Valadez in the next 1-3 mos in person See me after 3 mos after h/o abnormal TSH I have place another order for TSH/ Free T4 and TPO AB Will also place another order for HGa1c as it is has been over 6mos Kvng Lewis MD I spent a total of 40 minutes on the date of the service which included [id number] patient care, completing clinical documentation, performing a [...] message to call office. Also, sent detailed [employer] message re: upcoming Virtual appointment. Lisa Aguilar LPN * Telephone Encounter - Ira Maria - 07/06/2022 12:15 PM EST Pt calling, says she is returning call from nurse, does not remember the name of the nurse. She can be reached at [phone] documented in this encounterBellevue Hospital10-20-2022 Miscellaneous Notes* Telephone Encounter - Anahi Benito MA - 06/16/2022 9:29 AM EDT Received [employer] form and placed on physicians desk for review. Form faxed with confirmation. documented in this encounterBellevue Hospital10-12-2022 Miscellaneous Notes* Telephone Encounter - David [...] fax form to fax number provided # [phone] Form has been forwarded to: SILVINO/nidia documented in this encounterBellevue Hospital10-11-2022 History of Present illness Narrative* Phoebe Mckeon, ESTEFANIA.SHORE HAND DREDGE OR BARGE - 06/07/2022 2:25 PM EDT Kathleen Villa [...] yr/prn Phoebe Mckeon APRN.FRIEDA documented in this [facility]10-11-2022 Nurse Note* Alysha Petersen MA - 06/07/2022 2:11 PM EDT Pt is here today for JASON. Pt has no concerns at this time. documented in this [facility]09-16-2022 Miscellaneous Notes* Telephone Encounter - Anahi Benito MA - 05/13/2022 12:23 PM EDT Received [employer] and [employer] forms for pump/cgm supplies. Patient next visit is in June and has not been seen since 08/24/2021. [employer] message sent to patient requesting pump upload. documented in this [facility]09-15-2022 Nurse Note* Zohreh Rodarte LPN - 05/12/2022 10:15 AM EDT Pt given 2 doses of Rocephin 250 mg, total 500 mg in the left buttock. Pt tolerated injection well.BP 110/70. documented in this [facility]09-15-2022 History of Present illness Narrative* Phoebe Mckeon APRN.FRIEDA - 05/12/2022 9:34 AM EDT . documented in this [facility]09-13-2022 Miscellaneous Notes* Telephone Encounter - Dori [...] wks for a JASON Thanks Phoebe Mckeon APRN.SHORE HAND DREDGE OR BARGE documented in this encounterBellevue Hospital09-07-2022 Miscellaneous Notes* [...] needs scheduled appointment Yes documented in this encounterBellevue Hospital08-22-2022 Instructions* Patient Instructions* Dashawn Cain APRN.FRIEDA - 04/18/2022 8:39 AM EDT Labs ordered- urine tests. Have done at Urgent care or main hospital. We will call with results. Referral placed to RAIL SIGNAL WORKER clinic at [facility]. This should get in contact with you within the next couple weeks if not you may call central scheduling at [phone] to inquire about your appointment. documented in this encounterBellevue Hospital08-22-2022 History of Present illness Narrative* Dashawn Cain APRN.CNP - 04/18/2022 8:22 AM EDT This note was created using [address] [employer]. Subjective Kathleen Villa is a 26 year [...] apparently. She does not have a current NIGHTMAN. Her previous RAIL SIGNAL WORKER is Dr. Kristin Garcia at [facility]. She had noticed some mild discharge. [...] TABLET This note was partially generated using [employer] voice recognition system. Dashawn Cain APRN.SHORE HAND DREDGE OR BARGE documented in this encounterBellevue Hospital07-15-2022 History of Present illness Narrative* Teressa Mckoy RN - 03/11/2022 1:10 PM EDT 2mg/2ml Activase instilled in port at 1207. Blood return obtained at 1255. 10ml withdrawn and discarded. Port flushed with saline and heparin per protocol. documented in this encounterBellevue Hospital07-11-2022 History of Present illness Narrative* Teressa Mckoy RN - 03/07/2022 4:38 PM EDT Unable to obtain blood return. Will notify ordering practitioner for Activase order. Patient reports unable to stay today. Will return Monday03/11/22. documented in this encounterBellevue Hospital06-07-2022 [facility]05-06-2022 Miscellaneous Notes* Telephone Encounter - Anahi Haywood MA - 12/31/2021 11:44 AM EDT Received [facility] request for most recent office [...] voiced understanding. documented in this encounterBellevue Hospital05-05-2022 [facility]05-03[facility] Evaluation + Plan note Diagnostic Tests Pending * Complete Metabolic Panel 12/28/21 * Lipase Level 12/28/21 [facility] 04-30-2022 [facility] Miscellaneous Notes* Telephone Encounter - Velia Kaur MD - 12/25/2021 12:42 PM EDT 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 She is out of infusion sets for [...] 9:00 AM EDT received a fax from [facility] Patient has been approved for insulin aspart U-100 (NOVOLOG U-100 INSULIN ASPART) 100 unit/mL from 11/02/2021 to 12/04/2022 No further action is needed documented in this encounterBellevue Hospital02-28-2022 [facility]-25[facility]20[facility]-15[facility]22 Miscellaneous Notes* Telephone Encounter - Jess Guardado - 10/12/2021 10:25 AM EST Left VM for patient to call office to offer sooner apt with JOCELYNE Mcdonald. documented in this encounterBellevue Hospital10-09-2021 [facility] History of Past illness Narrative* Problem Noted [...] 02/25/2014 morning - On fentanyl gtt per NIGHTMAN Plan: - NIGHTMAN team to round on patient and manage [...] arise --- Follows with Dr. Garcia at [facility] Plan: - Continuous monitoring - F/u NIGHTMAN recs GBS (group B Streptococcus carrier), +RV [...] 02/25/2014 morning - On fentanyl gtt per NIGHTMAN Plan: - NIGHTMAN team to round on patient and manage [...] arise --- Follows with Dr. Garcia at [facility] Plan: - Continuous monitoring - F/u NIGHTMAN recs GBS (group B Streptococcus carrier), +RV [...] 02/25/2014 morning - On fentanyl gtt per NIGHTMAN Plan: - NIGHTMAN team to round on patient and manage [...] arise --- Follows with Dr. Garcia at [facility] Plan: - Continuous monitoring - F/u NIGHTMAN recs GBS (group B Streptococcus carrier), +RV [...] 02/25/2014 morning - On fentanyl gtt per NIGHTMAN Plan: - NIGHTMAN team to round on patient and manage [...] arise --- Follows with Dr. Garcia at [facility] Plan: - Continuous monitoring - F/u NIGHTMAN recs GBS (group B Streptococcus carrier), +RV [...] 02/25/2014 morning - On fentanyl gtt per NIGHTMAN Plan: - NIGHTMAN team to round on patient and manage [...] arise --- Follows with Dr. Garcia at [facility] Plan: - Continuous monitoring - F/u NIGHTMAN recs GBS (group B Streptococcus carrier), +RV [...] 02/25/2014 morning - On fentanyl gtt per NIGHTMAN Plan: - NIGHTMAN team to round on patient and manage [...] arise --- Follows with Dr. Garcia at [facility] Plan: - Continuous monitoring - F/u NIGHTMAN recs GBS (group B Streptococcus carrier), +RV [...] 02/25/2014 morning - On fentanyl gtt per NIGHTMAN Plan: - NIGHTMAN team to round on patient and manage [...] arise --- Follows with Dr. Garcia at [facility] Plan: - Continuous monitoring - F/u NIGHTMAN recs GBS (group B Streptococcus carrier), +RV [...] 02/25/2014 morning - On fentanyl gtt per NIGHTMAN Plan: - NIGHTMAN team to round on patient and manage [...] arise --- Follows with Dr. Garcia at [facility] Plan: - Continuous monitoring - F/u NIGHTMAN recs GBS (group B Streptococcus carrier), +RV [...] 02/25/2014 morning - On fentanyl gtt per NIGHTMAN Plan: - NIGHTMAN team to round on patient and manage [...] arise --- Follows with Dr. Garcia at [facility] Plan: - Continuous monitoring - F/u NIGHTMAN recs GBS (group B Streptococcus carrier), +RV [...] 02/25/2014 morning - On fentanyl gtt per NIGHTMAN Plan: - NIGHTMAN team to round on patient and manage [...] arise --- Follows with Dr. Garcia at [facility] Plan: - Continuous monitoring - F/u NIGHTMAN recs GBS (group B Streptococcus carrier), +RV [...] 02/25/2014 morning - On fentanyl gtt per NIGHTMAN Plan: - NIGHTMAN team to round on patient and manage [...] arise --- Follows with Dr. Garcia at [facility] Plan: - Continuous monitoring - F/u NIGHTMAN recs GBS (group B Streptococcus carrier), +RV [...] 02/25/2014 morning - On fentanyl gtt per NIGHTMAN Plan: - NIGHTMAN team to round on patient and manage [...] arise --- Follows with Dr. Garcia at [facility] Plan: - Continuous monitoring - F/u NIGHTMAN recs GBS (group B Streptococcus carrier), +RV [...] 02/25/2014 morning - On fentanyl gtt per NIGHTMAN Plan: - NIGHTMAN team to round on patient and manage [...] arise --- Follows with Dr. Garcia at [facility] Plan: - Continuous monitoring - F/u NIGHTMAN recs GBS (group B Streptococcus carrier), +RV [...] 02/25/2014 morning - On fentanyl gtt per NIGHTMAN Plan: - NIGHTMAN team to round on patient and manage [...] arise --- Follows with Dr. Garcia at [facility] Plan: - Continuous monitoring - F/u NIGHTMAN recs GBS (group B Streptococcus carrier), +RV [...] 02/25/2014 morning - On fentanyl gtt per NIGHTMAN Plan: - NIGHTMAN team to round on patient and manage [...] arise --- Follows with Dr. Garcia at [facility] Plan: - Continuous monitoring - F/u NIGHTMAN recs GBS (group B Streptococcus carrier), +RV [...] 02/25/2014 morning - On fentanyl gtt per NIGHTMAN Plan: - NIGHTMAN team to round on patient and manage [...] arise --- Follows with Dr. Garcia at [facility] Plan: - Continuous monitoring - F/u NIGHTMAN recs GBS (group B Streptococcus carrier), +RV [...] 02/25/2014 morning - On fentanyl gtt per NIGHTMAN Plan: - NIGHTMAN team to round on patient and manage [...] arise --- Follows with Dr. Garcia at [facility] Plan: - Continuous monitoring - F/u NIGHTMAN recs GBS (group B Streptococcus carrier), +RV [...] 02/25/2014 morning - On fentanyl gtt per NIGHTMAN Plan: - NIGHTMAN team to round on patient and manage [...] arise --- Follows with Dr. Garcia at [facility] Plan: - Continuous monitoring - F/u NIGHTMAN recs GBS (group B Streptococcus carrier), +RV [...] 02/25/2014 morning - On fentanyl gtt per NIGHTMAN Plan: - NIGHTMAN team to round on patient and manage [...] arise --- Follows with Dr. Garcia at [facility] Plan: - Continuous monitoring - F/u NIGHTMAN recs GBS (group B Streptococcus carrier), +RV [...] 02/25/2014 morning - On fentanyl gtt per NIGHTMAN Plan: - NIGHTMAN team to round on patient and manage [...] arise --- Follows with Dr. Garcia at [facility] Plan: - Continuous monitoring - F/u NIGHTMAN recs GBS (group B Streptococcus carrier), +RV [...] 02/25/2014 morning - On fentanyl gtt per NIGHTMAN Plan: - NIGHTMAN team to round on patient and manage [...] arise --- Follows with Dr. Garcia at [facility] Plan: - Continuous monitoring - F/u NIGHTMAN recs GBS (group B Streptococcus carrier), +RV [...] 02/25/2014 morning - On fentanyl gtt per NIGHTMAN Plan: - NIGHTMAN team to round on patient and manage [...] arise --- Follows with Dr. Garcia at [facility] Plan: - Continuous monitoring - F/u NIGHTMAN recs GBS (group B Streptococcus carrier), +RV [...] 02/25/2014 morning - On fentanyl gtt per NIGHTMAN Plan: - NIGHTMAN team to round on patient and manage [...] arise --- Follows with Dr. Garcia at [facility] Plan: - Continuous monitoring - F/u NIGHTMAN recs GBS (group B Streptococcus carrier), +RV [...] 02/25/2014 morning - On fentanyl gtt per NIGHTMAN Plan: - NIGHTMAN team to round on patient and manage [...] arise --- Follows with Dr. Garcia at [facility] Plan: - Continuous monitoring - F/u NIGHTMAN recs GBS (group B Streptococcus carrier), +RV [...] 02/25/2014 morning - On fentanyl gtt per NIGHTMAN Plan: - NIGHTMAN team to round on patient and manage [...] arise --- Follows with Dr. Garcia at [facility] Plan: - Continuous monitoring - F/u NIGHTMAN recs GBS (group B Streptococcus carrier), +RV [...] 02/25/2014 morning - On fentanyl gtt per NIGHTMAN Plan: - NIGHTMAN team to round on patient and manage [...] arise --- Follows with Dr. Garcia at [facility] Plan: - Continuous monitoring - F/u NIGHTMAN recs GBS (group B Streptococcus carrier), +RV [...] 02/25/2014 morning - On fentanyl gtt per NIGHTMAN Plan: - NIGHTMAN team to round on patient and manage [...] arise --- Follows with Dr. Garcia at [facility] Plan: - Continuous monitoring - F/u NIGHTMAN recs GBS (group B Streptococcus carrier), +RV [...] 02/25/2014 morning - On fentanyl gtt per NIGHTMAN Plan: - NIGHTMAN team to round on patient and manage [...] arise --- Follows with Dr. Garcia at [facility] Plan: - Continuous monitoring - F/u NIGHTMAN recs GBS (group B Streptococcus carrier), +RV [...] 02/25/2014 morning - On fentanyl gtt per NIGHTMAN Plan: - NIGHTMAN team to round on patient and manage [...] arise --- Follows with Dr. Garcia at [facility] Plan: - Continuous monitoring - F/u NIGHTMAN recs GBS (group B Streptococcus carrier), +RV [...] 02/25/2014 morning - On fentanyl gtt per NIGHTMAN Plan: - NIGHTMAN team to round on patient and manage [...] arise --- Follows with Dr. Garcia at [facility] Plan: - Continuous monitoring - F/u NIGHTMAN recs GBS (group B Streptococcus carrier), +RV [...] 02/25/2014 morning - On fentanyl gtt per NIGHTMAN Plan: - NIGHTMAN team to round on patient and manage [...] arise --- Follows with Dr. Garcia at [facility] Plan: - Continuous monitoring - F/u NIGHTMAN recs GBS (group B Streptococcus carrier), +RV [...] 02/25/2014 morning - On fentanyl gtt per NIGHTMAN Plan: - NIGHTMAN team to round on patient and manage [...] arise --- Follows with Dr. Garcia at [facility] Plan: - Continuous monitoring - F/u NIGHTMAN recs GBS (group B Streptococcus carrier), +RV [...] 02/25/2014 morning - On fentanyl gtt per NIGHTMAN Plan: - NIGHTMAN team to round on patient and manage [...] arise --- Follows with Dr. Garcia at [facility] Plan: - Continuous monitoring - F/u NIGHTMAN recs GBS (group B Streptococcus carrier), +RV [...] 02/25/2014 morning - On fentanyl gtt per NIGHTMAN Plan: - NIGHTMAN team to round on patient and manage [...] arise --- Follows with Dr. Garcia at [facility] Plan: - Continuous monitoring - F/u NIGHTMAN recs GBS (group B Streptococcus carrier), +RV [...] 02/25/2014 morning - On fentanyl gtt per NIGHTMAN Plan: - NIGHTMAN team to round on patient and manage [...] arise --- Follows with Dr. Garcia at [facility] Plan: - Continuous monitoring - F/u NIGHTMAN recs GBS (group B Streptococcus carrier), +RV [...] 02/25/2014 morning - On fentanyl gtt per NIGHTMAN Plan: - NIGHTMAN team to round on patient and manage care Diabetic ketoacidosis withou t coma associated with type 1 diabetes mellitus 01/08/2014 02/04/2023 Overview: Type 1 diabetes with poor control, frequent DKA episodes --- Throughout the day she takes insulin to keep sugars 80-150 - Presented to [facility] on 01/08/2014 with sub-sternal chest pain in [...] arise --- Follows with Dr. Garcia at [facility] Plan: - Continuous monitoring - F/u NIGHTMAN recs GBS (group B Streptococcus carrier), +RV [...] 02/25/2014 morning - On fentanyl gtt per NIGHTMAN Plan: - NIGHTMAN team to round on patient and manage care Diabetic ketoacidosis withou t coma associated with type 1 diabetes mellitus 01/08/2014 02/04/2023 Overview: Type 1 diabetes with poor control, frequent DKA episodes --- Throughout the day she takes insulin to keep sugars 80-150 - Presented to [facility] on 01/08/2014 with sub-sternal chest pain in [...] arise --- Follows with Dr. Garcia at [facility] Plan: - Continuous monitoring - F/u NIGHTMAN recs GBS (group B Streptococcus carrier), +RV [...] 02/25/2014 morning - On fentanyl gtt per NIGHTMAN Plan: - NIGHTMAN team to round on patient and manage care Diabetic ketoacidosis withou t coma associated with type 1 diabetes mellitus 01/08/2014 02/04/2023 Overview: Type 1 diabetes with poor control, frequent DKA episodes --- Throughout the day she takes insulin to keep sugars 80-150 - Presented to [facility] on 01/08/2014 with sub-sternal chest pain in [...] arise --- Follows with Dr. Garcia at [facility] Plan: - Continuous monitoring - F/u NIGHTMAN recs GBS (group B Streptococcus c arrier), [...] 02/25/2014 morning - On fentanyl gtt per NIGHTMAN Plan: - NIGHTMAN team to round on patient and manage care Diabetic ketoacidosis withou t coma associated with type 1 diabetes mellitus 01/08/2014 02/04/2023 Overview: Type 1 diabetes with poor control, frequent DKA episodes --- Throughout the day she takes insulin to keep sugars 80-150 - Presented to [facility] on 01/08/2014 with sub-sternal chest pain in [...] arise --- Follows with Dr. Garcia at [facility] Plan: - Continuous monitoring - F/u NIGHTMAN recs GBS (group B Streptococcus c arrier), [...] 02/25/2014 morning - On fentanyl gtt per NIGHTMAN Plan: - NIGHTMAN team to round on patient and manage care Diabetic ketoacidosis withou t coma associated with type 1 diabetes mellitus 01/08/2014 02/04/2023 Overview: Type 1 diabetes with poor control, frequent DKA episodes --- Throughout the day she takes insulin to keep sugars 80-150 - Presented to [facility] on 01/08/2014 with sub-sternal chest pain in [...] arise --- Follows with Dr. Garcia at [facility] Plan: - Continuous monitoring - F/u NIGHTMAN recs GBS (group B Streptococcus c arrier), [...] 02/25/2014 morning - On fentanyl gtt per NIGHTMAN Plan: - NIGHTMAN team to round on patient and manage care Diabetic ketoacidosis withou t coma associated with type 1 diabetes mellitus 01/08/2014 02/04/2023 Overview: Type 1 diabetes with poor control, frequent DKA episodes --- Throughout the day she takes insulin to keep sugars 80-150 - Presented to [facility] on 01/08/2014 with sub-sternal chest pain in [...] arise --- Follows with Dr. Garcia at [facility] Plan: - Continuous monitoring - F/u NIGHTMAN recs GBS (group B Streptococcus c arrier), [...] 02/25/2014 morning - On fentanyl gtt per NIGHTMAN Plan: - NIGHTMAN team to round on patient and manage care Diabetic ketoacidosis withou t coma associated with type 1 diabetes mellitus 01/08/2014 02/04/2023 Overview: Type 1 diabetes with poor control, frequent DKA episodes --- Throughout the day she takes insulin to keep sugars 80-150 - Presented to [facility] on 01/08/2014 with sub-sternal chest pain in [...] arise --- Follows with Dr. Garcia at [facility] Plan: - Continuous monitoring - F/u NIGHTMAN recs GBS (group B Streptococcus c arrier), [...] 02/25/2014 morning - On fentanyl gtt per NIGHTMAN Plan: - NIGHTMAN team to round on patient and manage care Diabetic ketoacidosis withou t coma associated with type 1 diabetes mellitus 01/08/2014 02/04/2023 Overview: Type 1 diabetes with poor control, frequent DKA episodes --- Throughout the day she takes insulin to keep sugars 80-150 - Presented to [facility] on 01/08/2014 with sub-sternal chest pain in [...] arise --- Follows with Dr. Garcia at [facility] Plan: - Continuous monitoring - F/u NIGHTMAN recs GBS (group B Streptococcus c arrier), [...] 02/25/2014 morning - On fentanyl gtt per NIGHTMAN Plan: - NIGHTMAN team to round on patient and manage care Diabetic ketoacidosis withou t coma associated with type 1 diabetes mellitus 01/08/2014 02/04/2023 Overview: Type 1 diabetes with poor control, frequent DKA episodes --- Throughout the day she takes insulin to keep sugars 80-150 - Presented to [facility] on 01/08/2014 with sub-sternal chest pain in [...] arise --- Follows with Dr. Garcia at [facility] Plan: - Continuous monitoring - F/u NIGHTMAN recs GBS (group B Streptococcus c arrier), [...] 02/25/2014 morning - On fentanyl gtt per NIGHTMAN Plan: - NIGHTMAN team to round on patient and manage care Diabetic ketoacidosis withou t coma associated with type 1 diabetes mellitus 01/08/2014 02/04/2023 Overview: Type 1 diabetes with poor control, frequent DKA episodes --- Throughout the day she takes insulin to keep sugars 80-150 - Presented to [facility] on 01/08/2014 with sub-sternal chest pain in [...] arise --- Follows with Dr. Garcia at [facility] Plan: - Continuous monitoring - F/u NIGHTMAN recs GBS (group B Streptococcus c arrier), [...] 02/25/2014 morning - On fentanyl gtt per NIGHTMAN Plan: - NIGHTMAN team to round on patient and manage care Diabetic ketoacidosis withou t coma associated with type 1 diabetes mellitus 01/08/2014 02/04/2023 Overview: Type 1 diabetes with poor control, frequent DKA episodes --- Throughout the day she takes insulin to keep sugars 80-150 - Presented to [facility] on 01/08/2014 with sub-sternal chest pain in [...] arise --- Follows with Dr. Garcia at [facility] Plan: - Continuous monitoring - F/u NIGHTMAN recs GBS (group B Streptococcus c arrier), [...] 02/25/2014 morning - On fentanyl gtt per NIGHTMAN Plan: - NIGHTMAN team to round on patient and manage care Diabetic ketoacidosis withou t coma associated with type 1 diabetes mellitus 01/08/2014 02/04/2023 Overview: Type 1 diabetes with poor control, frequent DKA episodes --- Throughout the day she takes insulin to keep sugars 80-150 - Presented to [facility] on 01/08/2014 with sub-sternal chest pain in [...] arise --- Follows with Dr. Garcia at [facility] Plan: - Continuous monitoring - F/u NIGHTMAN recs GBS (group B Streptococcus c arrier), [...] 02/25/2014 morning - On fentanyl gtt per NIGHTMAN Plan: - NIGHTMAN team to round on patient and manage care Diabetic ketoacidosis withou t coma associated with type 1 diabetes mellitus 01/08/2014 02/04/2023 Overview: Type 1 diabetes with poor control, frequent DKA episodes --- Throughout the day she takes insulin to keep sugars 80-150 - Presented to [facility] on 01/08/2014 with sub-sternal chest pain in [...] arise --- Follows with Dr. Garcia at [facility] Plan: - Continuous monitoring - F/u NIGHTMAN recs GBS (group B Streptococcus c arrier), [...] 02/25/2014 morning - On fentanyl gtt per NIGHTMAN Plan: - NIGHTMAN team to round on patient and manage care Diabetic ketoacidosis withou t coma associated with type 1 diabetes mellitus 01/08/2014 02/04/2023 Overview: Type 1 diabetes with poor control, frequent DKA episodes --- Throughout the day she takes insulin to keep sugars 80-150 - Presented to [facility] on 01/08/2014 with sub-sternal chest pain in [...] arise --- Follows with Dr. Garcia at [facility] Plan: - Continuous monitoring - F/u NIGHTMAN recs GBS (group B Streptococcus c arrier), [...] 02/25/2014 morning - On fentanyl gtt per NIGHTMAN Plan: - NIGHTMAN team to round on patient and manage care Diabetic ketoacidosis withou t coma associated with type 1 diabetes mellitus 01/08/2014 02/04/2023 Overview: Type 1 diabetes with poor control, frequent DKA episodes --- Throughout the day she takes insulin to keep sugars 80-150 - Presented to [facility] on 01/08/2014 with sub-sternal chest pain in [...] arise --- Follows with Dr. Garcia at [facility] Plan: - Continuous monitoring - F/u NIGHTMAN recs GBS (group B Streptococcus c arrier), +RV culture @ 22 wks 11/11/2013 04/16/2014 Hypertension in , antepartum 09/19/2013 01/08/2014 DVT prophylaxis 12/25/2012 09/04/2013 Overview: IPCs DISPOSITION AND FOLLOW-UP 12/25/2012 Overview: Full code Retinal detachment 10/26/2012 3 documented as of this encounter (statuses as of 12/15/2023) [facility] Author Cynthia Hutchison [facility] October 18, 2023 11:21am Note Date/Time October 18, 2023 11:21am [facility] Medical Records Department [address] [place] [address] Counseling Note - Pharmacy 10/18/23 1121 MR#: [id number] Acct: [id number] Name: KATHLEEN VILLA Rep #:[id number] : 1995 28 From: Cynthia Hutchison PCP: FUNMILAYO SMITH Status:ADM IN Y Location: ICU CVICU 2-1 Pharmacy [place] Med Reconciliation Pharmacy Service has performed discharge medication reconciliation for this patient. The patient's discharge medication list was reviewed for discrepancies and discrepancies were resolved. Medications at Discharge Home Medications insulin lispro 100 unit/mL subcutaneous solution (Humalog U-100 Insulin) See Rx Instructions .Route .COMPLEX 04/27/23 pen needle, diabetic 29 gauge x 1/2 (Ultra-Thin II Insulin Pen Vidalia) #100 ea08/10/23 prochlorperazine maleate 10 mg tablet (Compazine) 10 mg PO TID PRN nausea and vomiting #20 tabs 09/25/23 10/18/23 1121 <Electronically signed by Cynthia Hutchison> Date _ Cynthia Hutchison Cosigner Signature (if applicable): Date CC: ~ Signed [facility] Work Phone: Discharge summary Author Ileana Lobo [facility] April 29, 2023 5:54pm Note Date/Time April 29, 2023 5:45pm [facility] Medical Records Department [address] [place] [address] Instructions for Home/Discharge Instructions 04/29/23 1744 MR#: [id number] Acct: [id number] Name: KATHLEEN VILLA Rep #:[id number] : [...] MD; No Primary Care Physician ~ Signed [facility] Work Phone: Discharge summary Author Alexandro Garces [facility] October 17, 2023 11:38am Note Date/Time October 17, 2023 11:24am [facility] Medical Records Department [address] [place] [address] Emergency Department Summary 10/17/23 MR#: [id number] Acct: [id number] Name: KATHLEEN VILLA Rep #:[id number] : [...] Alvarez RN - Last Filed: 10/17/23 11:31> [facility] Medical History Anxiety Borderline personality [...] gauge x 1/2 (Ultra-Thin II Insulin Pen Vidalia) #100 ea08/10/23 [Rx Last Taken Unknown] ibuprofen [...] Alvarez RN - Last Filed: 10/17/23 11:31> [facility] MDM Narrative Medical decision making narrative: Patient placed on car scrubber. IV line initiated. Labwork obtained to evaluate [...] 88.4 H Lymph % (Auto) 7.8 L Desoto % (Auto) 2.4 Eos % (Auto) 0.1 [...] Garces MD - Last Filed: 10/17/23 11:38> [facility] MDM Narrative Medical decision making narrative: Patient placed on car scrubber. IV line initiated. Labwork obtained to evaluate [...] 88.4 H Lymph % (Auto) 7.8 L [place] % (Auto) 2.4 Eos % (Auto) 0.1 [...] minutes, Including time spent:, Discussing w/Patient &/or Family/Apple Thinner, Discussing w/Consultants, Arranging Admission or Transfer, Performing Direct Patient Care at Bedside and - (35 minutes) Discharge Plan Dx/Rx/DC Orders Clinical Impression: DKA (diabetic ketoacidosis), Tachycardia, Nausea & vomiting, Acute dehydration Disposition Disposition: [facility] What to do if you have Problems For any increased pain, shortness of breath, bleeding, nausea or vomiting, chest pain, or any unexpected problems, contact your Primary Care Provider. Call [facility] ([phone]) or report to the closest Emergency Room. Call 911 if necessary. 10/17/23 1138 <Electronically signed by Alexandro Garces MD> Cosigner Signature (if applicable): 10/17/23 1131 <Electronically signed by Jacqueline Alvarez RN> CC: FUNMILAYO SMITH ~ Signed [facility] Work Phone: Discharge summary Author Vita Jefferson [facility] October 18, 2023 10:54am Note Date/Time October 18, 2023 10:54am [facility] Medical Records Department [address] [place] [address] Instructions for Home/Discharge Instructions 10/18/23 1054 MR#: [id number] Acct: [id number] Name: KATHLEEN VILLA Rep #:[id number] : [...] Instructions / Restrictions: follow up with your anti tank missileman and insurance commissioner SIRI. Discharge Orders/Prescriptions Prescriptions: Continued insulin lispro [...] pen needle, diabetic [Ultra-Thin II Ins Pen Vidalia] 29 gauge x 1/2 needle See Rx [...] Jefferson MD CC: FUNMILAYO SMITH ~ Signed [facility] Work Phone: Discharge summary Author [facility] October 18, 2023 11:09am Note Date/Time October 18, 2023 10:58am [facility] Medical Records Department [address] [place] [address] Discharge Summary 10/18/23 1054 MR#: [id number] Acct: [id number] Name: KATHLEEN VILLA Rep #:[id number] : [...] was 6.7. * follows up with an anti tank missileman in [facility] in [place]. * last A1C from 08/07/2023 was 7 [...] gauge x 1/2 (Ultra-Thin II Insulin Pen Vidalia) #100 ea08/10/23 prochlorperazine maleate 10 mg tablet [...] per patient, her last A1C with her anti tank missileman was 6.7. She had however had recurrent [...] to follow up with her PCP and anti tank missileman as well as insurance commissioner o/a of gastroparesis. Patient seen and examined [...] % (Auto) 59.5, Lymph % (Auto) 32.5, Desoto % (Auto) 6.0, Eos % (Auto) 1.0, [...] Instructions / Restrictions: follow up with your anti tank missileman and insurance commissioner SIRI. Discharge Orders/Prescriptions Prescriptions: Continued insulin lispro [...] pen needle, diabetic [Ultra-Thin II Ins Pen Vidalia] 29 gauge x 1/2 needle See Rx [...] Self Care Charges/Coding Visit Charges Inpatient E&M: 27705 Disch Hosp >30min 10/18/23 1109 <Electronically signed by Vita Jefferson MD> Cosigner Signature (if applicable): CC: Dr. Vita eJfferson MD; FUNMILAYO SMITH~ Signed [facility] Work Phone: Evaluation note* Diagnosis Type 1 diabetes mellitus with other specified complication (HCC)- Primary [facility] Diagnosis Obstruction of central line, initial encounter (HCC)- Primary [facility]* Diagnosis Type 1 diabetes mellitus with other specified complication (HCC)- Primary [facility]* Diagnosis Menstrual irregularity- Primary Irregular menstrual cycle Screening for STD (sexually transmitted disease) Screening examination for venereal disease Chronic nausea Nausea alone [facility]* Diagnosis 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) documented in this encounter [facility] note* Diagnosis Chronic idiopathic constipation Unspecified constipation [facility]* Diagnosis Gonorrhea- Primary Gonococcal infection (acute) of lower genitourinary tract documented in this encounter [facility] note* Diagnosis Gonorrhea- Primary Gonococcal infection (acute) of lower genitourinary tract [facility]* Diagnosis Gonorrhea- Primary Gonococcal infection (acute) of lower genitourinary tract Screen for sexually transmitted diseases Screening examination for venereal disease [facility]* Diagnosis Type 1 diabetes mellitus with hyperglycemia (HCC)- Primary Type I (juvenile type) diabetes mellitus without mention of complication, not stated as uncontrolled Insulin pump status Abnormal results of thyroid function studies Nonspecific abnormal results of thyroid function study documented in this encounter [facility] note* Diagnosis Type 1 diabetes mellitus with hyperglycemia, with long-term current use of insulin ([facility])- Primary Insulin pump status [facility]* Diagnosis Type 1 diabetes mellitus with other specified complication (HCC)- Primary documented in this encounter [facility] note* Diagnosis Lower abdominal pain- Primary Abdominal pain, other specified site documented in this encounter [facility] note* Diagnosis Viral conjunctivitis- Primary Unspecified diseases of conjunctiva due to viruses documented in this encounter [facility] note* Diagnosis Gastroparesis due to DM (HCC)- Primary Type II or unspecified type diabetes mellitus with neurological manifestations, not stated as uncontrolled Aortic root aneurysm (HCC) Aortic aneurysm of unspecified site without mention of rupture Primary hypertension Unspecified essential hypertension Chronic nausea Nausea alone 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 ([facility]) Marfan syndrome Marfan's syndrome PTSD (post-traumatic stress disorder) Posttraumatic stress disorder Generalized abdominal pain Abdominal pain, generalized documented in this encounter [facility] note* Diagnosis Gastroparesis due to DM (HCC)- Primary Type II or unspecified type diabetes mellitus with neurological manifestations, not stated as uncontrolled Generalized abdominal pain Abdominal pain, generalized documented in this encounter [facility] note* Diagnosis Left flank pain- Primary Abdominal pain, unspecified site [facility]* Diagnosis Left flank pain- Primary Abdominal pain, unspecified site Dysuria documented in this encounter [facility] note* Diagnosis Type 1 diabetes mellitus with hyperglycemia, with long-term current use of insulin ([facility])- Primary Insulin pump status Screening for diabetic retinopathy Screening for other eye conditions documented in this encounter [facility] note* Diagnosis Nausea & vomiting- Primary Nausea with vomiting Hyperglycemia Other abnormal glucose Ketonuria Acetonuria Nausea and vomiting, unspecified vomiting type Abdominal pain, unspecified abdominal location Chest pain, unspecified type Bradycardia Other specified cardiac dysrhythmias documented in this encounter [facility] noteNo assessment information [facility] Work Phone: Evaluation note* Diagnosis Onset Date Resolution Status Intractable vomiting acute [facility] Work Phone: Evaluation note* Diagnosis Psoriasis vulgaris- Primary Other psoriasis documented in this encounter [facility] note* Diagnosis Type 1 diabetes mellitus with hyperglycemia, with long-term current use of insulin ([facility])- Primary Insulin pump status documented in this encounter [facility] note* Diagnosis Onset Date Resolution Status Diabetic gastroparesis acute DKA (diabetic ketoacidoses) acute Enterocolitis acute Intractable nausea and vomiting acute Nausea & vomiting acute Type 1 diabetes acute [facility] Work Phone: Evaluation note* Diagnosis Onset Date Resolution Status DKA (diabetic ketoacidoses) resolved Intractable nausea and vomiting resolved Nausea & vomiting resolved [facility] Work Phone: evaluation note* Diagnosis Onset Date Resolution Status DKA (diabetic ketoacidoses) resolved Intractable nausea and vomiting resolved Nausea & vomiting resolved Acute dehydration acute DKA (diabetic ketoacidosis) acute Nausea & vomiting acute Tachycardia acute [facility] Work Phone: Evaluation note* Diagnosis Psoriasis vulgaris- Primary Other psoriasis Multiple benign nevi documented in this encounter [facility] note* Diagnosis Onset Date Resolution Status DKA (diabetic ketoacidoses) resolved Intractable nausea and vomiting resolved Nausea & vomiting resolved Acute dehydration resolved DKA (diabetic ketoacidosis) resolved Nausea & vomiting resolved Tachycardia resolved [facility] Work Phone: Evaluation note* Diagnosis Type 1 diabetes mellitus with hyperglycemia, with long-term current use of insulin ([facility])- Primary Insulin pump status documented in this encounter [facility] note* Diagnosis Type 1 diabetes mellitus with hyperglycemia, with long-term current use of insulin (HCC) Insulin pump status [facility] Diagnosis Type 1 diabetes mellitus with hyperglycemia, with long-term current use of insulin (HCC)- Primary Insulin pump status [facility] Diagnosis Type 1 diabetes mellitus with hyperglycemia, with long-term current use of insulin ([facility]) [facility]* Diagnosis Obstructive sleep apnea- Primary Obstructive sleep apnea (adult) (pediatric) Dyspnea Other dyspnea and respiratory abnormality Type 1 diabetes mellitus with hyperglycemia, with long-term current use of insulin (HCC) Insulin pump status [facility]* Diagnosis Obstructive sleep apnea- Primary Obstructive sleep apnea (adult) (pediatric) Dyspnea Other dyspnea and respiratory abnormality Diabetes mellitus type 1, controlled, without complications (HCC)- Primary Type I (juvenile type) diabetes mellitus without mention of complication, not stated as uncontrolled [facility] [...] for venereal disease [facility]* Diagnosis Obstructive sleep apnea- Primary Obstructive sleep apnea (adult) (pediatric) Dyspnea Other dyspnea and respiratory abnormality Type 1 diabetes mellitus with hyperglycemia, with long-term current use of insulin ([facility])- Primary Insulin pump status [facility] Diagnosis Obstructive sleep apnea- Primary Obstructive sleep apnea (adult) (pediatric) Dyspnea Other dyspnea and respiratory abnormality Type 1 diabetes mellitus with hyperglycemia, with long-term current use of insulin ([facility]) Insulin pump status [facility] Diagnosis Psoriasis vulgaris- Primary Other psoriasis Folliculitis Other specified disease of hair and hair follicles Encounter for long-term current use of high risk medication Screening for viral disease Special screening examination for unspecified viral disease documented in this encounter [facility] note* Diagnosis Obstructive sleep apnea- Primary Obstructive sleep apnea (adult) (pediatric) Dyspnea Other dyspnea and respiratory abnormality Chronic idiopathic constipation- Primary Unspecified constipation Gastroparesis [facility] Diagnosis Obstructive sleep apnea- Primary Obstructive sleep apnea (adult) (pediatric) Dyspnea Other dyspnea and respiratory abnormality Chronic idiopathic constipation- Primary Unspecified constipation Abdominal pain, suprapubic Abdominal pain, other specified site Chronic idiopathic constipation Unspecified constipation [facility] Diagnosis Obstructive sleep apnea- Primary Obstructive sleep apnea (adult) (pediatric) Dyspnea Other dyspnea and respiratory abnormality Chronic idiopathic constipation Unspecified constipation [facility]* Diagnosis [...] of other medications documented in this encounter [facility] course Narrative No data available for this section [facility] Hospital Discharge instructions No data available for this section [facility] Hospital Discharge instructions* Attachments The following attachments cannot be sent through Care Everywhere. * Gastroparesis ([place]) [facility] Additional Instructions Please follow-up with your diabetes doctor Please keep a close eye on your blood sugar and adjust your pump accordingly. Please try to drink plenty of fluids today.[facility] Work Phone: Hospital Discharge instructions Additional Instructions You have influenza B. You should start to feel better later in the week. You need to maintain hydration, keep a close eye on your sugars. You need to eat and drink, do not get behind and get dehydrated. Use ibuprofen and Tylenol. Use your albuterol inhaler.[facility] Work Phone: Progress note No data available for this section [facility] Reason for visit Narrative* Diagnostic Procedure Only (Routine) - Closed Specialty Diagnoses / Procedures Referred By Contac t Referred To Contact XR IMAGING Diagnoses Chronic idiopathic constipation Procedures XR ABDOMEN 1V SUPINE RADIOLOGIC EXAM ABDOMEN 1 VIEW Leticia Hylton DO [address] [place] [address] Phone: tel: fax: [place] [address] Referral ID Status Reason Start Date Expiration Date V isits Requested Visits Authorized [id number] Closed Auto-Generate d Referral 11/11/2024 12/11/2025 1 [...] FoundDocuments on File Type Date Recorded Patient Machine Tool Dresser Expl anation Advance Directive(s) Advance Directive(s) 01/02/2020 3:16 PM Advance Directive(s) 01/20/2016 9:39 AM Advance Directive(s) 11/13/2015 8:50 AM Advance Directive(s) 02/27/2014 5:42 PM Advance Directive(s) 01/09/2014 8:55 PM Advance Directive(s) 12/25/2012 9:16 PM Documents on File Type Date Recorded Patient Machine Tool Dresser Expl anation Advance Directive(s) 02/27/2014 5:42 PM Advance Directive(s) 01/09/2014 8:55 PM Advance Directive(s) 12/25/2012 9:16 PM Documents on File Type Date Recorded Patient Machine Tool Dresser Expl anation Advance Directive(s) 02/27/2014 5:42 PM [...] No April 26 3 9:30pm Power of Stationary Plant Operators No April 26, 2 023 9:30pm Advance Directive Response Recorded Date/ Time Living Will No April 27 3 9:26am Power of Stationary Plant Operators No April 27, 2 023 9:26am Advance Directive Response Recorded Date/ Time Living Will No April 27 3 5:02pm Power of Stationary Plant Operators No April 27, 2 023 5:02pm Advance Directive Response Recorded Date/ Time Living Will No May 03 2 023 4:27am Power of Stationary Plant Operators No May 03, 2023 4:27am Latest Code [...] Will No June 25 9:47am Power of Stationary Plant Operators No June 25, 2023 9:47am Advance Directive Response Recorded Date/ Time Living Will No June 25 11:14pm Power of Stationary Plant Operators No June 25, 2023 11:14pm Advance Directive Response Recorded Date/ Time Living Will No August 06, 2 023 8:56am Power of Stationary Plant Operators No August 06, 2023 8:56am Advance Directive Response Recorded Date/ Time Living Will No August 06, 023 9:39pm Power of Stationary Plant Operators No August 06, 2023 9:39pm Advance Directive Response Recorded Date/ Time Living Will No August 22, 2 023 2:48am Power of Stationary Plant Operators No August 22, 2023 2:48am Advance Directive Response Recorded Date/ Time Living Will No September 24 5:58pm Power of Stationary Plant Operators No September 24, 2023 5:58pm Advance Directive Response Recorded Date/ Time Living Will No October 17, 2 024 10:02am Power of Stationary Plant Operators No October 17, 2023 10:02am Advance Directive Response Recorded Date/ Time Living Will No October 17, 2 024 12:47pm Power of Stationary Plant Operators No October 17, 2023 12:47pm Advance Directive Response Recorded Date/ Time Living Will No October 25, 2 024 4:43pm Power of Stationary Plant Operators No October 25, 2023 4:43pm Date Activated Date Inactivated Comments 02/01/2023 2:02 AM 02/04/2023 6:35 PM Question Answer Comments Full Code Order Discussed With: Patient Date Activated Date Inactivated Comments 11/23/2022 11:30 PM 11/26/2022 7:43 PM Question Answer Comments Full Code Order Discussed With: Patient Advance Directive Response Recorded Date/ Time Living Will No October 25, 2 024 5:43pm Power of Stationary Plant Operators No October 25, 2023 5:43pm Date Activated Date Inactivated Comments 02/01/2023 2:02 AM 02/04/2023 6:35 PM Question Answer Comments Full Code Order Discussed With: Patient Date Activated Date Inactivated Comments 11/23/2022 11:30 PM 11/26/2022 7:43 PM Question Answer Comments Full Code Order Discussed With: Patient Advance Directive Response Recorded Date/ Time Living Will No August 07, 2 023 1:35am Power of Stationary Plant Operators No August 07, 2023 1:35am Health Concerns [...] DSME/MNT MEDICAL NUTRITION ASSMT&IVNTJ INDIV EACH 15 FL MEDICAL NUTRITION ASSMT&IVNTJ INDIV EACH 15 FL MEDICAL NUTRITION ASSMT&IVNTJ INDIV EACH 15 [place] MEDICAL NUTRITION ASSMT&IVNTJ INDIV EACH 15 FL Jessica Guerrero, HOT PATCHER.SHORE HAND DREDGE OR BARGE [address] [place] [address] Referral ID Status Reason Start Date Expiration Date Visits Requested Visits Authorized [id number] Authorized PCP Requested Referral 12/13/2023 12/12/2024 1 1 Specialty Diagnoses / Procedures Referred By Contac t Referred To Contact Diagnoses Psoriasis vulgaris Leesa Huddleston PA-C [address] [facility] [address] [place] [address] Referral ID Status Reason Start Date Expiration Date V isits Requested Visits Authorized [id number] Authorized 04/14/2021 05/13/2024 1 1 Specialty Diagnoses / Procedures Referred By Contac t Referred To Contact Ophthalmology Diagnoses Screening for diabetic retinopathy Procedures CONSULT TO OPHTHALMOLOGY OFFICE/OUTPATIENT [facility] 60-74 MINUTES Autumn Valadez, HOT PATCHER.SHORE HAND DREDGE OR BARGE [address] [place] [address] Referral ID Status Reason Start Date Expiration Date Visits Requested Visits Authorized [id number] Authorized PCP Requested Referral 01/25/2023 01/25/2024 1 1 Specialty Diagnoses / Procedures Referred By Contac t Referred To Contact Gastroenterology Diagnoses Gastroparesis due to DM (HCC) Generalized abdominal pain Procedures CONSULT TO GASTROENTEROLOGY OFFICE/OUTPATIENT [facility] 60-74 MINUTES Vivi Smith MD [address] [place] [address] Leticia Hylton DO [facility] [address] [place] [address] Referral ID Status Reason Start Date Expiration Date Visits Requested Visits Authorized [id number] Authorized PCP Requested Referral 12/09/2022 12/09/2023 1 1 Specialty Diagnoses / Procedures Referred By Contac t Referred To Contact Pain Management / PAIN MANAGEMENT Diagnoses Gastroparesis due to DM (HCC) Generalized abdominal pain Procedures CONSULT TO PAIN MGT OFFICE/OUTPATIENT [facility] 60-74 MINUTES Vivi Smith MD [address] [place] [address] Elisabet Guzmán, DO [address] [place] [address] Referral ID Status Reason Start Date Expiration Date Visits Requested Visits Authorized [id number] Authorized PCP Requested Referral 12/09/2022 12/09/2023 1 1 Specialty Diagnoses / Procedures Referred By Contac t Referred To Contact Gynecology Diagnoses Menstrual irregularity Procedures CONSULT TO GYNECOLOGY OFFICE/OUTPATIENT [facility] 60-74 MINUTES Dashawn Cain, ESTEFANIA.SHORE HAND DREDGE OR BARGE [address] [place] [address] Referral ID Status Reason Start Date Expiration Date Visits Requested Visits Authorized [id number] Authorized PCP Requested Referral Auto-Generate d Referral [...] section and content) DATE CREATED AUTHOR 02/21/2018 [facility] DATE CREATED AUTHOR AUTHOR'S ORGANIZ ATION 12/28/2021 [facility] DATE CREATED AUTHOR AUTHOR'S ORGANIZ ATION 02/12/2022 [facility] DATE CREATED AUTHOR AUTHOR'S ORGANIZ ATION 03/04/2023 [facility] DATE CREATED AUTHOR AUTHOR'S ORGANIZ ATION 04/20/2023 [facility] DATE CREATED AUTHOR AUTHOR'S ORGANIZ ATION 12/17/2023 [facility] DATE CREATED AUTHOR AUTHOR'S ORGANIZ ATION 11/13/[address] [facility] DATE CREATED AUTHOR AUTHOR'S ORGANIZ ATION 11/15/2024 [facility] DATE CREATED AUTHOR AUTHOR'S ORGANIZ ATION 01/28/2025 [facility] DATE CREATED AUTHOR AUTHOR'S ORGANIZ ATION 05/31/2025 [facility] Source Comments (unrecognize d [...] or prosecute any alcohol or drug abuse patient.[facility] the event this information is protected [...] DO Attending Provider, Emergency P rovider Active [facility] Primary Care Provider Active Team Status: Inactive Member Role Status Dates [facility] Primary Care Provider Active Dr. Rm Chirinos MD Attending Provider, Emergency Provi benjie Active Team Status: Inactive Member Role Status Dates [facility] Primary Care Provider Active Dr. Edwin Scales MD Attending Provider, Emergency Provider Active Team Status: Inactive Member Role Status Dates [facility] Primary Care Provider Active Dr. Olvin [...] Team Status: Inactive Member Role Status Dates [facility] Primary Care Provider Active Dr. Alexandro Garces MD Emergency Provider Active Dr. Vita Jefferson MD Admit Provider, Attending Prov ider Active Team Status: Active Member Role Status Dates [facility] Primary Care Provider Active Team Status: Inactive Member Role Status No Primary Care Physician Primary Care Provider Active Dr. Siddharth Herrera MD Attending Provider, Emergency Pr ovider Active Team Status: Inactive Member Role Status Dates [facility] Primary Care Provider Active Dr. Rm Chirinos MD Emergency Provider Active Team Status: Inactive Member Role Status Dates [facility] Primary Care Provider Active Dr. Edwin [...] Dr. Ileana Lobo MD Attending Provider Active Animal Care Attendant Relationship Specialty Start Date End Date [facility]. [address] [place] [address] PCP - General Family Practice 12/31/19 Latosha Johsnon LSW Retail Pricing Coordinator 12/10/14 Vamsi Cohen MD Primary Staff Physician Cardiology 11/13/18 Animal Care Attendant Relationship Specialty Start Date End Date [facility]. [address] [place], [place] PCP - General Family Practice 12/31/19 Latosha Johnson LSW Retail Pricing Coordinator 12/10/14 Vamsi Cohen MD Primary Staff Physician Cardiology 11/13/18 Animal Care Attendant Relationship Specialty Start Date End Date [facility] [address] [place] [address] PCP - General Family Practice 12/31/19 Latosha Johnson, DAYCARE ASSISTANT Retail Pricing Coordinator 12/10/14 Vamsi Cohen MD Primary Staff Physician Cardiology 11/13/18 Animal Care Attendant Relationship Specialty Start Date End Date [facility]. [address] [place] PCP - General Family Practice 12/31/19 Latosha Johnson, DAYCARE ASSISTANT Retail Pricing Coordinator 12/10/14 Vamsi Cohen MD Primary Staff Physician Cardiology 11/13/18 Animal Care Attendant Relationship Specialty Start Date End Date [facility] [address] [place], [place] PCP - General Family Practice 12/31/19 Latosha Johnson [facility] Retail Pricing Coordinator 12/10/14 Vamsi Cohen MD Primary Staff Physician Cardiology 11/13/18 Animal Care Attendant Relationship Specialty Start Date End Date Dashawn Cain, HOT PATCHER.SHORE HAND DREDGE OR BARGE [address] [facility] [place] PCP - General Family Practice 03/08/22 Latosha Johnson [facility] Retail Pricing Coordinator 12/10/14 Vamsi Cohen MD Primary Staff Physician Cardiology 11/13/18 Animal Care Attendant Relationship Specialty Start Date End Date Dashawn Cain, HOT PATCHER.SHORE HAND DREDGE OR BARGE [address] [facility] [place] PCP - General Family Practice 03/08/22 Latosha Johnson LSW Retail Pricing Coordinator 12/10/14 Vamsi Cohen MD Primary Staff Physician Cardiology 11/13/18 Animal Care Attendant Relationship Specialty Start Date End Date Paul, HOT PATCHER.SHORE HAND DREDGE OR BARGE [address] [place] PCP - General Family Practice 03/08/22 Latosha Johnson, DAYCARE ASSISTANT Retail Pricing Coordinator 12/10/14 Vamsi Cohen MD Primary Staff Physician Cardiology 11/13/18 Animal Care Attendant Relationship Specialty Start Date End Date Paul, HOT PATCHER.SHORE HAND DREDGE OR BARGE [address] [place] PCP - General Family Practice 03/08/22 Latosha Johnson, DAYCARE ASSISTANT Retail Pricing Coordinator 12/10/14 Vamsi Cohen MD Primary Staff Physician Cardiology 11/13/18 Animal Care Attendant Relationship Specialty Start Date End Date Paul, HOT PATCHER.SHORE HAND DREDGE OR BARGE [address] [facility] [place] PCP - General Family Practice 03/08/22 Latosha Johnson, DAYCARE ASSISTANT Retail Pricing Coordinator 12/10/14 Vamsi Cohen MD Primary Staff Physician Cardiology 11/13/18 Animal Care Attendant Relationship Specialty Start Date End Date Paul, HOT PATCHER.SHORE HAND DREDGE OR BARGE [address] [place] [address] PCP - General Family Practice 03/08/22 Latosha Johnson, DAYCARE ASSISTANT Retail Pricing Coordinator 12/10/14 Vamsi Cohen MD Primary Staff Physician Cardiology 11/13/18 Animal Care Attendant Relationship Specialty Start Date End Date KamDashawn henderson, HOT PATCHER.SHORE HAND DREDGE OR BARGE [address] [place] PCP - General Family Practice 03/08/22 Latosha Johnson LSW Retail Pricing Coordinator 12/10/14 Vamsi Cohen MD Primary Staff Physician Cardiology 11/13/18 Animal Care Attendant Relationship Specialty Start Date End Date eliseoDashawn, HOT PATCHER.SHORE HAND DREDGE OR BARGE [address] [place] PCP - General Family Practice 03/08/22 Latosha Johnson LSW Retail Pricing Coordinator 12/10/14 Vamsi Cohen MD Primary Staff Physician Cardiology 11/13/18 Animal Care Attendant Relationship Specialty Start Date End Date Dashawn Cain, HOT PATCHER.SHORE HAND DREDGE OR BARGE [address] [place], [place] PCP - General Family Practice 03/08/22 Latosha Johnson LSW Retail Pricing Coordinator 12/10/14 Vamsi Cohen MD Primary Staff Physician Cardiology 11/13/18 Animal Care Attendant Relationship Specialty Start Date End Date Dashawn Cain, HOT PATCHER.SHORE HAND DREDGE OR BARGE [address] [facility] [place] PCP - General Family Practice 03/08/22 Latosha Johnson LSW Retail Pricing Coordinator 12/10/14 Vamsi Cohen MD Primary Staff Physician Cardiology 11/13/18 Animal Care Attendant Relationship Specialty Start Date End Date [facility] [address] [place] PCP - General Family Medicine 12/31/19 03/07/22 Dashawn Cani, HOT PATCHER.SHORE HAND DREDGE OR BARGE [address] [place] PCP - General Family Medicine 03/08/22 Latosha Johnson, [facility] Retail Pricing Coordinator 12/10/14 Vamsi Cohen MD Primary Staff Physician Cardiology 11/13/18 Animal Care Attendant Relationship Specialty Start Date End Date Dashawn Cain, HOT PATCHER.SHORE HAND DREDGE OR BARGE [address] [place] [address] PCP - General Family Medicine 03/08/22 Latosha Johnson, [facility] Retail Pricing Coordinator 12/10/14 Vamsi Cohen MD Primary Staff Physician Cardiology 11/13/18 Animal Care Attendant Relationship Specialty Start Date End Date DelfinDashawn, HOT PATCHER.SHORE HAND DREDGE OR BARGE [address] [place] [facility] [place] [address] PCP - General Family Medicine 03/08/22 Latosha Johnson, [facility] Retail Pricing Coordinator 12/10/14 Vamsi Cohen MD Primary Staff Physician Cardiology 11/13/18 Animal Care Attendant Relationship Specialty Start Date End Date Dashawn, HOT PATCHER.SHORE HAND DREDGE OR BARGE [address] [facility] [place] [address] PCP - General Family Medicine 03/08/22 Latosha Johnson, [facility] Retail Pricing Coordinator 12/10/14 Vamsi Cohen MD Primary Staff Physician Cardiology 11/13/18 Animal Care Attendant Relationship Specialty Start Date End Date Dashawn Cain, HOT PATCHER.SHORE HAND DREDGE OR BARGE [address] [place] [address] PCP - General Family Medicine 03/08/22 Latosha Johnson [facility] Retail Pricing Coordinator 12/10/14 Vamsi Cohen MD Primary Staff Physician Cardiology 11/13/18 Animal Care Attendant Relationship Specialty Start Date End Date Paul, HOT PATCHER.SHORE HAND DREDGE OR BARGE [address] [place] [address] [facility] [place] [address] PCP - General Family Medicine 03/08/22 Latosha Johnson [facility] Retail Pricing Coordinator 12/10/14 Vamsi Cohen MD Primary Staff Physician Cardiology 11/13/18 Animal Care Attendant Relationship Specialty Start Date End Date Paul, HOT PATCHER.SHORE HAND DREDGE OR BARGE [address] [place] [address] PCP - General Family Medicine 03/08/22 Latosha Johnson [facility] Retail Pricing Coordinator 12/10/14 Vamsi Cohen MD Primary Staff Physician Cardiology 11/13/18 Animal Care Attendant Relationship Specialty Start Date End Date Dashawn, HOT PATCHER.SHORE HAND DREDGE OR BARGE [address] [place] [address] PCP - General Family Medicine 03/08/22 Latosha Johnson [facility] Retail Pricing Coordinator 12/10/14 Vamsi Cohen MD Primary Staff Physician Cardiology 11/13/18 Animal Care Attendant Relationship Specialty Start Date End Date eliseoDashawn, HOT PATCHER.SHORE HAND DREDGE OR BARGE [address] [facility] [place] [address] PCP - General Family Medicine 03/08/22 Latosha Johnson, DAYCARE ASSISTANT Retail Pricing Coordinator 12/10/14 Vamsi Cohen MD Primary Staff Physician Cardiology 11/13/18 Animal Care Attendant Relationship Specialty Start Date End Date Dashawn Cain, HOT PATCHER.SHORE HAND DREDGE OR BARGE [address] [place] [phone] PCP - General Family Medicine 03/08/22 Latosha Johnson, DAYCARE ASSISTANT Retail Pricing Coordinator 12/10/14 Vamsi Cohen MD Primary Staff Physician Cardiology 11/13/18 Animal Care Attendant Relationship Specialty Start Date End Date Dashawn Cain, HOT PATCHER.SHORE HAND DREDGE OR BARGE [address] [place] [phone] PCP - General Family Medicine 03/08/22 Latosha Johnson, DAYCARE ASSISTANT Retail Pricing Coordinator 12/10/14 Vamsi Cohen MD Primary Staff Physician Cardiology 11/13/18 Animal Care Attendant Relationship Specialty Start Date End Date Dashawn Cain, HOT PATCHER.SHORE HAND DREDGE OR BARGE PCP - General Family Medicine 03/08/22 Latosha Johnson [facility] Retail Pricing Coordinator 12/10/14 Vamsi Cohen MD Primary Staff Physician Cardiology 11/13/18 Animal Care Attendant Relationship Specialty Start Date End Date Dashawn Cain, HOT PATCHER.SHORE HAND DREDGE OR BARGE PCP - General Family Medicine 03/08/22 Latosha Johnson, DAYCARE ASSISTANT Retail Pricing Coordinator 12/10/14 Vamsi Cohen MD Primary Staff Physician Cardiology 11/13/18 Animal Care Attendant Relationship Specialty Start Date End Date Latosha Johnson, DAYCARE ASSISTANT Retail Pricing Coordinator 12/10/14 Vamsi Cohen MD Primary Staff Physician Cardiology 11/13/18 Animal Care Attendant Relationship Specialty Start Date End Date Vivi Smith MD [address] [place] [phone] PCP - General Family Medicine 12/08/22 Latosha Johnson, DAYCARE ASSISTANT Retail Pricing Coordinator 12/10/14 Vamsi Cohen MD Primary Staff Physician Cardiology 11/13/18 Animal Care Attendant Relationship Specialty Start Date End Date Vivi Smith MD [address] [place] [address]93 PCP - General Family Medicine 12/08/22 Latosha Johnson DAYCARE ASSISTANT Retail Pricing Coordinator 12/10/14 Vamsi Cohen MD Primary Staff Physician Cardiology 11/13/18 Animal Care Attendant Relationship Specialty Start Date End Date Vivi Smith MD [address] [place] [address]63 PCP - General Family Medicine 12/08/22 Latosha Johnson DAYCARE ASSISTANT Retail Pricing Coordinator 12/10/14 Vamsi Cohen MD Primary Staff Physician Cardiology 11/13/18 Animal Care Attendant Relationship Specialty Start Date End Date Vivi Smith MD [address] [place] [phone] PCP - General Family Medicine 12/08/22 Latosha Johnson LSW Retail Pricing Coordinator 12/10/14 Vamsi Cohen MD Primary Staff Physician Cardiology 11/13/18 Animal Care Attendant Relationship Specialty Start Date End Date Vivi Smith MD [address] [place] [address] PCP - General Family Medicine 12/08/22 Latosha Johnson, DAYCARE ASSISTANT Retail Pricing Coordinator 12/10/14 Vamsi Cohen MD Primary Staff Physician Cardiology 11/13/18 Animal Care Attendant Relationship Specialty Start Date End Date Vivi Smith MD [address] [place] [address]21 PCP - General Family Medicine 12/08/22 Latosha Johnson, DAYCARE ASSISTANT Retail Pricing Coordinator 12/10/14 Vamsi Cohen MD Primary Staff Physician Cardiology 11/13/18 Animal Care Attendant Relationship Specialty Start Date End Date Vivi Smith MD [address] [place] [address]45 PCP - General Family Medicine 12/08/22 Latosha Johnson, DAYCARE ASSISTANT Retail Pricing Coordinator 12/10/14 Vamsi Cohen MD Primary Staff Physician Cardiology 11/13/18 Animal Care Attendant Relationship Specialty Start Date End Date Vivi Smith MD [address] [place] [address]654 PCP - General Family Medicine 12/08/22 Latosha Johnson, DAYCARE ASSISTANT Retail Pricing Coordinator 12/10/14 Vamsi Cohen MD Primary Staff Physician Cardiology 11/13/18 Animal Care Attendant Relationship Specialty Start Date End Date Dashawn Cain, HOT PATCHER.SHORE HAND DREDGE OR BARGE PCP - General Family Medicine 03/08/22 11/06/22 Vivi Smith MD [address] [place] [address] 28987 PCP - General Family Medicine 12/08/22 Latosha Johnson, DAYCARE ASSISTANT Retail Pricing Coordinator 12/10/14 Vamsi Cohen MD Primary Staff Physician Cardiology 11/13/18 Animal Care Attendant Relationship Specialty Start Date End Date Vivi Smith MD [address] [place] [phone] PCP - General Family Medicine 12/08/22 Latosha Johnson, DAYCARE ASSISTANT Retail Pricing Coordinator 12/10/14 Vamsi Cohen MD Primary Staff Physician Cardiology 11/13/18 Animal Care Attendant Relationship Specialty Start Date End Date Vivi Smith MD [address] [place] [address] PCP - General Family Medicine 12/08/22 Latosha Johnson, DAYCARE ASSISTANT Retail Pricing Coordinator 12/10/14 Vamsi Cohen MD Primary Staff Physician Cardiology 11/13/18 Animal Care Attendant Relationship Specialty Start Date End Date No, Physician [facility] PCP - General 03/20/23 Team Status: Active Member Role Status Dates No Primary Care Physician Primary Care Provider Active Dr. Lin Johansen MD Emergency Provider Active Dr. David Smith MD Admit Provider, Attending Provider Active Animal Care Attendant Relationship Specialty Start Date End Date Alfredo Mccullough MD [address] [place] [phone] PCP - General 01/18/21 Team Status: Inactive Member Role Status Dates Dr. Greg Philip DO Attending Provider, Emergency P neida Active No Primary Care Physician Primary Care Provider Active Team Status: Inactive Member Role Status Dates No Primary Care Physician Primary Care Provider Active Dr. Marc Carl , Emergency Provider Active Animal Care Attendant Relationship Specialty Start Date End Date Vivi Smith MD [address] [place] [address] PCP - General Family Medicine 12/08/22 Latosha Johnson, [facility] Retail Pricing Coordinator 12/10/14 Vamsi Cohen MD Primary Staff Physician [...] DO Admit Provider, Attending Pr ovider Active Animal Care Attendant Relationship Specialty Start Date End Date Vivi Smith MD [address] [place] [address] PCP - General Family Medicine 12/08/22 Latosha Johnson, [facility] Retail Pricing Coordinator 12/10/14 Vamsi Cohen MD Primary Staff Physician Cardiology 11/13/18 Animal Care Attendant Relationship Specialty Start Date End Date [facility] [address] [place] [phone] PCP - General 08/15/23 Animal Care Attendant Relationship Specialty Start Date End Date Vivi Smith MD [address] [place] [address] PCP - General Family Medicine 12/08/22 Latosha Johnson, DAYCARE ASSISTANT Retail Pricing Coordinator 12/10/14 Vamsi Cohen MD Primary Staff Physician Cardiology 11/13/18 Animal Care Attendant Relationship Specialty Start Date End Date Vivi Smith MD [address] [place] [address] PCP - General Family Medicine 12/08/22 Latosha Johnson, DAYCARE ASSISTANT Retail Pricing Coordinator 12/10/14 Vamsi Cohen MD Primary Staff Physician Cardiology 11/13/18 Animal Care Attendant Relationship Specialty Start Date End Date Vivi Smith MD [address] [place] [address] PCP - General Family Medicine 12/08/22 Latosha Johnson, DAYCARE ASSISTANT Retail Pricing Coordinator 12/10/14 Vamsi Cohen MD Primary Staff Physician Cardiology 11/13/18 Kyara Luis reception agentCoal Picker 10/12/23 Team Status: Active Member Role Status Dates SARAH MELLO Primary Care Provider Active Dr. Alexandro Garces MD Emergency Provider Active Dr. Vita Jefferson MD Admit Provider, Attending Prov ider Active Animal Care Attendant Relationship Specialty Start Date End Date Vivi Smith MD [address] [place] [address] PCP - General Family Medicine 12/08/22 Latosha Johnson, MICHELLE Retail Pricing Coordinator 12/10/14 Vamsi Cohen MD Primary Staff Physician Cardiology 11/13/18 Kyara Luis, reception agentCoal Picker 10/12/23 Kyara Luis reception agent Tower Switch Operator 10/19/23 Animal Care Attendant Relationship Specialty Start Date End Date [facility] [address] [place] [address] PCP - General 08/15/23 Team Status: Inactive Member Role Status Dates Out of Town Doctor Primary Care Provider Active Dr. Lin Johansen MD Attending Provider, Emergency Provider Active Team Status: Inactive Member Role Status Dates Out of Town Doctor Primary Care Provider Active Ed Physician Provider Emergency Provider Active Animal Care Attendant Relationship Specialty Start Date End Date Vivi Smith MD [address] [place] [address]4 PCP - General Family Medicine 12/08/22 Latosha Johnson LSW Retail Pricing Coordinator 12/10/14 Vamsi Cohen MD Primary Staff Physician Cardiology 11/13/18 Kyara Luis, reception agentCoal Picker 10/12/23 Animal Care Attendant Relationship Specialty Start Date End Date [facility] [address] [place] [address] PCP - General 08/15/23 Animal Care Attendant Relationship Specialty Start Date End Date [facility] [address] [place] [address] PCP - General 08/15/23 Animal Care Attendant Relationship Specialty Start Date End Date Vivi Smith MD [address] [place] [address] [phone] PCP - General Family Medicine 12/08/22 Latosha Johnson, [facility] Retail Pricing Coordinator 12/10/14 Vamsi Cohen MD Primary Staff Physician Cardiology 11/13/18 Kyara Luis, reception agentCoal Picker 10/12/23 Animal Care Attendant Relationship Specialty Start Date End Date Vivi Smith MD [address] [place] [address] PCP - General Family Medicine 12/08/22 Latosha Johnson, [facility] Retail Pricing Coordinator 12/10/14 Vamsi Cohen MD Primary Staff Physician Cardiology 11/13/18 Kyara Luis, reception agentCoal Picker 10/12/23 Animal Care Attendant Relationship Specialty Start Date End Date Vivi Smith MD [address] [place] [phone] PCP - General Family Medicine 12/08/22 Latosha Johnson, [facility] Retail Pricing Coordinator 12/10/14 Vamsi Cohen MD Primary Staff Physician Cardiology 11/13/18 Kyara Luis, reception agentCoal Picker 10/12/23 Animal Care Attendant Relationship Specialty Start Date End Date Vivi Smith MD [address] [place] [address] [phone] PCP - General Family Medicine 12/08/22 Latosha Johnson, DAYCARE ASSISTANT Retail Pricing Coordinator 12/10/14 Vamsi Cohen MD Primary Staff Physician Cardiology 11/13/18 Kyara Luis, reception agentCoal Picker 10/12/23 Animal Care Attendant Relationship Specialty Start Date End Date [facility] [address] [place] [address] PCP - General 08/15/23 Animal Care Attendant Relationship Specialty Start Date End Date [facility] [address] [place] [address] PCP - General 08/15/23 Animal Care Attendant Relationship Specialty Start Date End Date Vivi Smith MD [address] [place] [address] PCP - General Family Medicine 12/08/22 Latosha Johnson, [facility] Retail Pricing Coordinator 12/10/14 Vamsi Cohen MD Primary Staff Physician Cardiology 11/13/18 Kyara Luis, reception agentCoal Picker 10/12/23 Animal Care Attendant Relationship Specialty Start Date End Date Vivi Smith MD [address] [place] [address] PCP - General Family Medicine 12/08/22 Latosha Johnson, DAYCARE ASSISTANT Retail Pricing Coordinator 12/10/14 Vamsi Cohen MD Primary Staff Physician Cardiology 11/13/18 Kyara Luis, reception agentCoal Picker 10/12/23 Animal Care Attendant Relationship Specialty Start Date End Date Vivi Smith MD [address] [place], [place] [phone] PCP - General Family Medicine 12/08/22 Latosha Johnson, [facility] Retail Pricing Coordinator 12/10/14 Vamsi Cohen MD Primary Staff Physician Cardiology 11/13/18 Kyara Luis, reception agentCoal Picker 10/12/23 Animal Care Attendant Relationship Specialty Start Date End Date Vivi Smith MD [address] [place] [address] PCP - General Family Medicine 12/08/22 Latosha Johnson, [facility] Retail Pricing Coordinator 12/10/14 Vamsi Cohen MD Primary Staff Physician Cardiology 11/13/18 Kyara Luis, reception agentCoal Picker 10/12/23 Animal Care Attendant Relationship Specialty Start Date End Date Vivi Smith MD [address] [place] [address] PCP - General Family Medicine 12/08/22 Latosha Johnson DAYCARE ASSISTANT Retail Pricing Coordinator 12/10/14 Vamsi Cohen MD Primary Staff Physician Cardiology 11/13/18 Kyara Luis, reception agentCoal Picker 10/12/23 Animal Care Attendant Relationship Specialty Start Date End Date Vivi Smith MD [address] [place], [place] [phone] PCP - General Family Medicine 12/08/22 Latosha Johnson, [facility] Retail Pricing Coordinator 12/10/14 Vamsi Cohen MD Primary Staff Physician Cardiology 11/13/18 Kyara Luis, reception agentCoal Picker 10/12/23 Animal Care Attendant Relationship Specialty Start Date End Date Alfredo Mccullough MD [address] [place] [phone] PCP - General 01/18/21 Animal Care Attendant Relationship Specialty Start Date End Date Alfredo Mccullough MD [address] [place] [phone] PCP - General 01/18/21 Animal Care Attendant Relationship Specialty Start Date End Date Vivi Smith MD [address] [place] [phone] PCP - General Family Medicine 12/08/22 Latosha Johnson, [facility] Retail Pricing Coordinator 12/10/14 Vamsi Cohen MD Primary Staff Physician Cardiology 11/13/18 Kyara Luis, reception agentCoal Picker 10/12/23 Animal Care Attendant Relationship Specialty Start Date End Date Vivi Smith MD [address] [place] [address] PCP - General Family Medicine 12/08/22 Latosha Johnson, [facility] Retail Pricing Coordinator 12/10/14 Vamsi Cohen MD Primary Staff Physician Cardiology 11/13/18 Kyara Luis, reception agentCoal Picker 10/12/23 Animal Care Attendant Relationship Specialty Start Date End Date Vivi Smith MD [address] [place] [phone] PCP - General Family Medicine 12/08/22 Latosha Johnson, DAYCARE ASSISTANT Retail Pricing Coordinator 12/10/14 Vamsi Cohen MD Primary Staff Physician Cardiology 11/13/18 Kyara Luis, reception agentCoal Picker 10/12/23 Animal Care Attendant Relationship Specialty Start Date End Date Vivi Smith MD [address] [place] [address] PCP - General Family Medicine 12/08/22 Latosha Johnson DAYCARE ASSISTANT Retail Pricing Coordinator 12/10/14 Vamsi Cohen MD Primary Staff Physician Cardiology 11/13/18 Kyara Luis, reception agentCoal Picker 10/12/23 Animal Care Attendant Relationship Specialty Start Date End Date Vivi Smith MD [address] [place] [address] PCP - General Family Medicine 12/08/22 Latosha Johnson, DAYCARE ASSISTANT Retail Pricing Coordinator 12/10/14 Vamsi Cohen MD Primary Staff Physician Cardiology 11/13/18 Kyara Luis, reception agentCoal Picker 10/12/23 Animal Care Attendant Relationship Specialty Start Date End Date Vivi Smith MD [address] [place] [phone] PCP - General Family Medicine 12/08/22 Latosha Johnson, DAYCARE ASSISTANT Retail Pricing Coordinator 12/10/14 Vamsi Cohen MD Primary Staff Physician Cardiology 11/13/18 Kyara Luis, reception agentCoal Picker 10/12/23 Animal Care Attendant Relationship Specialty Start Date End Date Vivi Smith MD [address] [place] [address] PCP - General Family Medicine 12/08/22 Latosha Johnson LSW Retail Pricing Coordinator 12/10/14 Vamsi Cohen MD Primary Staff Physician Cardiology 11/13/18 Kyara Luis, reception agentCoal Picker 10/12/23 Animal Care Attendant Relationship Specialty Start Date End Date [facility] [address] [place] [address] PCP - General 08/15/23 Animal Care Attendant Relationship Specialty Start Date End Date [facility] [address] [place] [address] PCP - General 08/15/23 Reason for Visit [...] Referred By Contac t Referred To Contact NIGHTMAN Diagnoses STD exposure ROCEPHIN INJECTION - GONORRHEA Procedures INJECTION Phoebe Mckeon APRN.SHORE HAND DREDGE OR BARGE [address] [place] [address] Phoebe Mckeon APRN.SHORE HAND DREDGE OR BARGE [address] [place] [address] Referral ID Status Reason Start Date Expiration Date V isits Requested Visits Authorized [id number] Closed Benefit Check 05/10/2022 08/27/2022 1 1 [...] Expiration Date Visits Re quested Visits Authorized [id number] 1 1 Reason Onset Date Comments Med Refill 05/02/2023 Reason Comments High Blood Sugar Reason Onset Date Comments Transition Of Care 08/15/2023 Reason Onset Date Comments Coal Picker Chronic Care 09/29/2023 Reason Onset Date Comments Refill Request 09/21/2023 Reason Comments Forms DME: [facility]CS for pump gleason pplies Reason Onset Date Comments Coal Picker Chronic Care 10/12/2023 Reason Onset Date Comments Transition Of Care 10/19/2023 Message Reason Onset Date Comments Transition Of Care 10/20/2023 Reason Onset Date Comments Transition Of Care 10/27/2023 Reason Onset Date Comments Transition Of Care 11/03/2023 Reason Onset Date Comments Transition Of Care 11/10/2023 Reason Comments Psoriasis (PKN) Reason Onset Date Comments Coal Picker Chronic Care 12/15/2023 Reason Onset Date Comments [...] DSME MEDICAL NUTRITION ASSMT&IVNTJ INDIV EACH 15 FL MEDICAL NUTRITION ASSMT&IVNTJ INDIV EACH 15 FL MEDICAL NUTRITION ASSMT&IVNTJ INDIV EACH 15 [place] MEDICAL NUTRITION ASSMT&IVNTJ INDIV EACH 15 FL Kvng Lewis MD [address] [place] [address] Referral ID Status Reason Start Date Expiration Date V isits Requested Visits Authorized [id number] Closed PCP Requested Referral 03/12/2024 03/12/2025 1 [...] PLACED TUBE OR TUBE less than 14 Czech. To administer dissolved tablet(s) mix with 4 [...] - Provider: Sixto Mercado RN)[id number] (Return to [facility] - Provider: Liang Boothe RN) promethazine (PHENERGAN) suppository 12.5 mg 12.5 mg, Rectal, Every 6 hours PRN, nausea, vomiting, Starting on Mon03/21/23 at 1006 sodium chloride (PF) (NS) 0.9 % contrast line flush 10 mL (COMPLETED) 10 mL, Intravenous, Once in imaging, contrast, Per deputy county counsel (Radiology) for line patency check prior to contrast administration, Starting on Mon03/20/23 at 0551, For 1 dose 0806 (Given - Provider: Kaylyn Alvarado, TECHNOLOGIST) sodium chloride (PF) (NS) 0.9 % contrast line flush 80 mL (COMPLETED) 80 mL, Intravenous, Once in imaging, contrast, Per deputy county counsel (Radiology), Starting on Mon03/20/23 at 0551, For [...] BE BASED ON THE PRIMARY CLINICAL RECORDS. [facility] [employer] [facility]. provides no warranty or guarantee of the accuracy or completeness of information in this document.
[2025-08-09 23:40] VITALS: BP 134/95; PULSE 81; RESP 20; TEMP 36.6; O2SAT 98
[2025-08-09] MEDS: DiphenhydrAMINE 50 MG/ML Syringe 25 MG IV (23:48)
[2025-08-10] VITALS (30 sets, daily range): BP systolic 93–161; BP diastolic 43–120; PULSE 58–101; RESP 15–32; TEMP 36.2–36.7; O2SAT 95–99; BMI 24.9; BMI 25.2
[2025-08-10] MEDS: 0.9% Normal Saline (1000mL) 1,000 ML 1000 ML IV (01:04)
[2025-08-10] MEDS: Dext 5%-0.45% NS 1,000 ML 150 ML IV ×3 (02:10→20:03)
[2025-08-10] MEDS: Pantoprazole Sodium 40 MG in 0.9% Normal Saline (100mL MB+) 100 ML 330 MG IV ×3 (02:38→22:35)
[2025-08-10] MEDS: 0.9% Saline Lock 10 ML Syringe IV (02:42)
[2025-08-10 03:12] LABS: Anion Gap 21 (5-15); Carbon Dioxide 11.0 mmol/L (21.0-32.0); Chloride 103 mmol/L (98-108); Potassium 4.2 mmol/L (3.3-5.1)
--- NOTE | 2025-08-10 05:40 | NURSING ---
Left chest port accessed and unable to flush lumen. Per report, same thing happened in the ER. Cathflo 2 mg instilled into line using stopcock method.Cathflo allowed to dwell for 2 hours. Attempt to withdraw Cathflo from line. No blood return obtained. The port flushes now, but the patient is complaining of pain with fluid flush. Care RN to contact provider for portable chest x-ray to assess for correct position.
[2025-08-10 06:05] LABS: Hematocrit 39.5 % (37-47); Hemoglobin 12.7 g/dL (12.0-15.0); Immature Granulocytes Count 0.190 X10^3/uL (0.0-0.0); Mean Corp Hgb Conc 32.2 g/dL (32-36); Mean Corpuscular Volume 90.8 fL (81-99); Mean Platelet Vol. 11.2 fl (6.2-12.0); NRBC Flagged by Analyzer 0 % (0-5); Platelet Count 178 K/mm3 (150-450); RBC Distribution Width CV 12.8 % (11.6-14.6); RBC Distribution Width SD 42.6 fl (35.1-43.9); Red Blood Count 4.35 M/mm3 (4.2-5.4); White Blood Count 16.0 K/mm3 (4.4-11.0)
[2025-08-10 06:34] LABS: AST(SGOT) 17 U/L (<=31); Alanine Aminotransfer ALT/SGPT 10 U/L (<=34); Albumin, Serum 4.2 g/dL (3.5-5.0); Alkaline Phosphatase 83 U/L (35-104); Anion Gap 18 (5-15); BUN 13 mg/dL (4-19); BUN/Creat Ratio 13.3 RATIO (10-20); Calcium,Total 8.5 mg/dL (7.6-11.0); Carbon Dioxide 13.1 mmol/L (21.0-32.0); Chloride 105 mmol/L (98-108); Estimated Creatinine Clearance 93.87 ml/min (50-250); Globulin 2.6 g/dL (2.2-4.2); Glucose 247 mg/dL (70-99); Magnesium 1.9 mg/dL (1.5-2.2); Potassium 4.5 mmol/L (3.3-5.1)
[2025-08-10] MEDS: 0.9% Normal Saline (250mL Bag) 250 ML 15 ML IV (08:40)
[2025-08-10] MEDS: Sodium Phosphate/Na Biphos 15 MMOL in 0.9% Normal Saline (250mL Bag) 250 ML 125 MMOL IV ×2 (08:43→15:32)
[2025-08-10 10:08] LABS: Anion Gap 17 (5-15); BUN 11 mg/dL (4-19); BUN/Creat Ratio 14.1 RATIO (10-20); Calcium,Total 8.4 mg/dL (7.6-11.0); Carbon Dioxide 15.3 mmol/L (21.0-32.0); Chloride 105 mmol/L (98-108); Estimated Creatinine Clearance 114.33 ml/min (50-250); Glucose 196 mg/dL (70-99); Potassium 4.0 mmol/L (3.3-5.1)
[2025-08-10 10:51] LABS: Magnesium 1.8 mg/dL (1.5-2.2)
[2025-08-10 14:10] LABS: Anion Gap 17 (5-15); Carbon Dioxide 14.9 mmol/L (21.0-32.0); Chloride 106 mmol/L (98-108); Magnesium 1.9 mg/dL (1.5-2.2); Potassium 3.6 mmol/L (3.3-5.1)
--- NOTE | 2025-08-10 15:04 | PN.HOSP_ITS ---
Reason for Visit Chief Complaint: Elevated BS, N/V, concern for DKA. Subjective Subjective Patient was seen and examined today, her Mediport is not working and it causes her discomfort, she has a peripheral IV in at this time. Patient is still in DKA, I gave an order to give her 3 hours of D5W at 250 an hour and then resume her regular rate. Patient appears lethargic but comfortable. Objective Data Objective Data Vital Signs: Vital Signs Temp Pulse Resp BP Pulse Ox O2 Del Method 97.7 F L 65 24 H 130/77 H 97 Room Air 08/10/25 12:00 08/10/25 14:00 08/10/25 14:00 08/10/25 14:00 08/10/25 14:00 08/10/25 14:00 Oxygen Delivery Method Room Air Weight: 77.4 kg Body Mass Index (BMI) 25.2 Intake & Output: Intake and Output for Last 24 Hours 08/08/25 08/09/25 08/10/25 23:59 23:59 23:59 Intake Total 1010 / 1010 2515.09 / 2515.09 Output Total 300 / 300 Balance 1010 / 1010 2215.09 / 2215.09 Lab / Micro Data 08/10/25 06:00 08/10/25 13:40 Labs: Laboratory Results - last 24 hr 08/09/25 21:18: POC Glucose 418 H 08/09/25 21:44: Urine Color Yellow, Urine Clarity Clear, Urine pH 5.0, Ur Specific [place] 1.025, Urine Protein 30 H, Urine Glucose (UA) 1000 H, Urine Ketones 150 A*, Urine Occult Blood Negative, Urine Nitrite Negative, Urine Bilirubin Negative, Urine Urobilinogen Normal, Ur Leukocyte Esterase Negative, Urine RBC 0-5 SEEN, Urine WBC 0-5 SEEN, Ur Squamous Epith Cells 0-5 SEEN, Urine Bacteria 1+, Urine Mucus 0 SEEN, Urine Opiates Screen NEGATIVE, U Buprenorphine Qual NEGATIVE, Ur Oxycodone Screen NEGATIVE, Urine Methadone Screen NEGATIVE, Urine Fentanyl Screen NEGATIVE, Ur Barbiturates Screen NEGATIVE, Ur Phencyclidine Scrn NEGATIVE, Ur Amphetamines Screen NEGATIVE, U Benzodiazepines Scrn NEGATIVE, Urine Cocaine Screen NEGATIVE, U Cannabinoids Screen PRESUMPTIVE POSITIVE 08/09/25 21:53: WBC 15.5 H, RBC 5.03, Hgb 15.0, Hct 45.4, MCV 90.3, MCH 29.8, MCHC 33.0, RDW Std Deviation 42.5, RDW Coeff of Joyce 13.0, Plt Count 220, MPV 12.0, Immature Gran % (Auto) 1.000 H, Neut % (Auto) 84.8 H, Lymph % (Auto) 10.3 L, [place] % (Auto) 3.6, Eos % (Auto) 0.0, Baso % (Auto) 0.3, Absolute Neuts (auto) 13.1 H, Absolute Lymphs (auto) 1.60, Nucleated RBC % 0, Sodium 133 08/09/25 21:53: Sodium 133, Potassium 4.6 08/09/25 21:53: Potassium 4.6, Chloride 95 L 08/09/25 21:53: Chloride 94 L, Carbon Dioxide 10.1 L 08/09/25 21:53: Carbon Dioxide 9.5 L*, Anion Gap 28 H 08/09/25 21:53: Anion Gap 29 H, BUN 18, Creatinine 1.12, Estim Creat Clear Calc 82.82, Est GFR (MDRD) Non-Af 67, BUN/Creatinine Ratio 16.4, Glucose 448 H, Calcium 9.8, Phosphorus 3.4, Magnesium 1.8, Total Bilirubin 0.86, Direct Bilirubin 0.27, AST 18, ALT 11, Alkaline Phosphatase 96, Total Protein 7.7, Albumin 4.5, Globulin 3.2, Lipase 13, b-Hydroxybutyric mmol/L 5.9 H, Serum , Qual NEGATIVE 08/09/25 23:33: POC Glucose 431 H 08/10/25 00:15: POC Glucose 299 H 08/10/25 01:07: POC Glucose 283 H 08/10/25 01:57: POC Glucose 247 H 08/10/25 02:35: Sodium 135, Potassium 4.2, Chloride 103, Carbon Dioxide 11.0 L, Anion Gap 21 H 08/10/25 02:56: POC Glucose 220 H 08/10/25 03:56: POC Glucose 226 H 08/10/25 05:03: POC Glucose 218 H 08/10/25 06:00: WBC 16.0 H, RBC 4.35, Hgb 12.7, Hct 39.5, MCV 90.8, MCH 29.2, MCHC 32.2, RDW Std Deviation 42.6, RDW Coeff of Joyce 12.8, Plt Count 178, MPV 11.2, Immature Gran % (Auto) 1.200 H, Neut % (Auto) 92.3 H, Lymph % (Auto) 4.9 L , [place] % (Auto) 1.3, Eos % (Auto) 0.0, Baso % (Auto) 0.3, Absolute Neuts (auto) 14.8 H, Absolute Lymphs (auto) 0.79 L, Nucleated RBC % 0, Sodium 135, Potassium 4.5, Chloride 105, Carbon Dioxide 13.1 L, Anion Gap 18 H, BUN 13, Creatinine 0.95, Estim Creat Clear Calc 93.87, Est GFR (MDRD) Non-Af 82, BUN/Creatinine Ratio 13.3, Glucose 247 H, Hemoglobin A1c 8.1 H, Calcium 8.5, Phosphorus 1.9 L, Magnesium 1.9, Total Bilirubin 0.45, AST 17, ALT 10, Alkaline Phosphatase 83, Total Protein 6.8, Albumin 4.2, Globulin 2.6, Albumin/Globulin Ratio 1.6 08/10/25 06:01: POC Glucose 218 H 08/10/25 07:13: POC Glucose 221 H 08/10/25 08:33: POC Glucose 205 H 08/10/25 09:32: POC Glucose 169 H 08/10/25 09:45: Sodium 136, Potassium 4.0, Chloride 105, Carbon Dioxide 15.3 L, Anion Gap 17 H, BUN 11, Creatinine 0.78, Estim Creat Clear Calc 114.33, Est GFR (MDRD) Non-Af 104, BUN/Creatinine Ratio 14.1, Glucose 196 H, Calcium 8.4 08/10/25 09:50: Phosphorus 2.1 L, Magnesium 1.8 08/10/25 10:37: POC Glucose 170 H 08/10/25 11:25: POC Glucose 158 H 08/10/25 12:35: POC Glucose 163 H 08/10/25 13:35: POC Glucose 159 H 08/10/25 13:40: Sodium 138, Potassium 3.6, Chloride 106, Carbon Dioxide 14.9 L, Anion Gap 17 H, Phosphorus 2.1 L, Magnesium 1.9 08/10/25 14:40: POC Glucose 155 H ABG Data ABG results: ABG 08/09/25 22:06 Specimen Type ISABELLE Sample Site Not entered VBG pH 7.41 VBG pO2 75 H VBG HCO3 13 L VBG Total CO2 13 L VBG O2 Sat (Calc) 95 H VBG Base Excess -12 L POC Mix VBG pCO2 Pt Tmp 20.1 L O2 Delivery Device Room Air Physical Exam Const alert and no apparent distress General Appearance: cooperative, well kempt and well developed Orientation / Consciousness: awake, oriented to person and oriented to place HEENT normocephalic, head/scalp atraumatic and moist oral mucous membranes Eyes PERRL, EOMs intact bilaterally and conjunctivae normal Neck supple, no JVD, thyroid normal and no carotid bruits General: trachea midline Resp normal respiratory effort, no retractions, no use of accessory muscles and clear to auscultation bilaterally Auscultation: Negative for rales, rhonchi or wheezes Cardio regular rate, regular rhythm, S1 normal heart sound, S2 normal heart sound, no murmurs, no rub and no gallops GI normal to inspection, nondistended, normoactive bowel sounds, soft to palpation, non-tender and non-distended Extremity no clubbing, cyanosis or edema Skin no rashes or lesions noted General Skin Exam: no breakdown Neuro CN's II-XII intact bilaterally, moves all extremities, no focal motor deficits and no sensory deficits noted Neuro Narrative: Patient was lethargic Sensorium / Orientation: awake, alert, oriented to person and oriented to place Speech: speech normal Psych Psych Narrative: Patient has a flat affect and is lethargic Assessment & Plan Assessment/Plan (1) DKA (diabetic ketoacidosis): PLAN: Plan 1. DKA secondary to uncontrolled type 1 diabetes-patient will remain on IV fluids at this time and on an insulin drip, labs will continue to be monitored. #2 chronic anxiety disorder/PTSD/chronic depression-patient is on Seroquel #3 nausea and vomiting secondary to diabetic gastroparesis-patient had 1 episode of vomiting today, I have chose not to place her on Reglan #4 hypophosphatemia-patient received IV phosphorus replacement Total clinical time spent by myself addressing the patient's medical issues, reviewing all of her data, and collaborating with patient's care team: 35 minutes Charges/Coding Visit Charges Inpatient E&M: 56887 Subs Hosp L2
[2025-08-10] MEDS: Dext 5%-0.45% NS 1,000 ML 250 ML IV (15:30)
[2025-08-10 18:10] LABS: Anion Gap 14 (5-15); Carbon Dioxide 17.1 mmol/L (21.0-32.0); Chloride 108 mmol/L (98-108); Magnesium 1.8 mg/dL (1.5-2.2); Potassium 3.1 mmol/L (3.3-5.1)
[2025-08-10] MEDS: Potassium Chloride 10mEq/100mL 10 MEQ/100 ML IV.SOLN. 100 MEQ IV BOLUS ×3 (19:28→23:19)
[2025-08-10] MEDS: Insulin Lispro 100 UNIT in 0.9% Normal Saline (100mL Bag) 99 ML CONT INF (20:35)
[2025-08-10 22:34] LABS: Anion Gap 12 (5-15); Carbon Dioxide 16.7 mmol/L (21.0-32.0); Chloride 111 mmol/L (98-108); Magnesium 1.8 mg/dL (1.5-2.2); Potassium 3.2 mmol/L (3.3-5.1)
[2025-08-11] VITALS (18 sets, daily range): BP systolic 91–127; BP diastolic 50–73; PULSE 51–85; RESP 11–29; TEMP 36.2–36.7; O2SAT 94–99; BMI 25.2
[2025-08-11] MEDS: Potassium Chloride 10mEq/100mL 10 MEQ/100 ML IV.SOLN. 100 MEQ IV BOLUS ×2 (00:19→06:11)
[2025-08-11] MEDS: Sodium Phosphate/Na Biphos 15 MMOL in 0.9% Normal Saline (250mL Bag) 250 ML 125 MMOL IV (01:14)
[2025-08-11] MEDS: Dext 5%-0.45% NS 1,000 ML 150 ML IV ×2 (02:32→09:14)
[2025-08-11 04:09] LABS: Anion Gap 13 (5-15); BUN 4 mg/dL (4-19); BUN/Creat Ratio 6.1 RATIO (10-20); Calcium,Total 6.5 mg/dL (7.6-11.0); Carbon Dioxide 12.0 mmol/L (21.0-32.0); Chloride 116 mmol/L (98-108); Estimated Creatinine Clearance 143.83 ml/min (50-250); Glucose 123 mg/dL (70-99); Potassium 2.8 mmol/L (3.3-5.1)
[2025-08-11 05:08] LABS: Hematocrit 37.8 % (37-47); Hemoglobin 12.5 g/dL (12.0-15.0); Immature Granulocytes Count 0.100 X10^3/uL (0.0-0.0); Mean Corp Hgb Conc 33.1 g/dL (32-36); Mean Corpuscular Volume 89.8 fL (81-99); Mean Platelet Vol. 11.4 fl (6.2-12.0); NRBC Flagged by Analyzer 0 % (0-5); Platelet Count 165 K/mm3 (150-450); RBC Distribution Width CV 13.1 % (11.6-14.6); RBC Distribution Width SD 43.3 fl (35.1-43.9); Red Blood Count 4.21 M/mm3 (4.2-5.4); White Blood Count 12.4 K/mm3 (4.4-11.0)
[2025-08-11] MEDS: Sodium Bicarbonate 8.4% 50 ML Syringe 50 MEQ IV ×2 (05:12)
[2025-08-11 05:27] LABS: Anion Gap 12 (5-15); BUN 4 mg/dL (4-19); BUN/Creat Ratio 5.7 RATIO (10-20); Calcium,Total 7.6 mg/dL (7.6-11.0); Carbon Dioxide 17.3 mmol/L (21.0-32.0); Chloride 110 mmol/L (98-108); Estimated Creatinine Clearance 131.14 ml/min (50-250); Glucose 167 mg/dL (70-99); Magnesium 1.7 mg/dL (1.5-2.2); Potassium 3.0 mmol/L (3.3-5.1)
[2025-08-11] MEDS: 0.9% Normal Saline (250mL Bag) 250 ML 15 ML IV (06:13)
[2025-08-11] MEDS: Potassium Chloride 10mEq/100mL 10 MEQ/100 ML IV.SOLN. 50 MEQ IV BOLUS (08:03)
--- NOTE | 2025-08-11 09:59 | PN_ITS ---
Subjective Subjective Patient seen and examined. She still complains of nausea. Her left port was accessed on admission, but there was no blood draw this morning from it, and she had some pain from it. Review of systems is otherwise negative. Anion gap has closed and anion gap has also closed. Objective Data Objective Data Vital Signs: Vital Signs Temp Pulse Resp BP Pulse Ox O2 Del Method 98.1 F 52 L 20 H 107/64 94 Room Air 08/11/25 04:00 08/11/25 06:00 08/11/25 06:00 08/11/25 06:00 08/11/25 09:10 08/11/25 09:10 Oxygen Delivery Method Room Air Weight: 170 lb 10.205 oz Body Mass Index (BMI) 25.2 Intake & Output: Intake and Output for Last 24 Hours 08/09/25 08/10/25 08/11/25 23:59 23:59 23:59 Intake Total 1010 / 1010 5153.25 / 5253.25 2646.45 / 2646.45 Output Total 300 / 300 Balance 1010 / 1010 4853.25 / 4953.25 2646.45 / 2646.45 Lab / Micro Data 08/11/25 04:56 08/11/25 04:56 Labs: Laboratory Results - last 24 hr 08/10/25 09:45: Sodium 136, Potassium 4.0, Chloride 105, Carbon Dioxide 15.3 L, Anion Gap 17 H, BUN 11, Creatinine 0.78, Estim Creat Clear Calc 114.33, Est GFR (MDRD) Non-Af 104, BUN/Creatinine Ratio 14.1, Glucose 196 H, Calcium 8.4 08/10/25 09:50: Phosphorus 2.1 L, Magnesium 1.8 08/10/25 10:37: POC Glucose 170 H 08/10/25 11:25: POC Glucose 158 H 08/10/25 12:35: POC Glucose 163 H 08/10/25 13:35: POC Glucose 159 H 08/10/25 13:40: Sodium 138, Potassium 3.6, Chloride 106, Carbon Dioxide 14.9 L, Anion Gap 17 H, Phosphorus 2.1 L, Magnesium 1.9 08/10/25 14:40: POC Glucose 155 H 08/10/25 15:30: POC Glucose 155 H 08/10/25 16:36: POC Glucose 182 H 08/10/25 17:41: POC Glucose 164 H 08/10/25 17:44: Sodium 139, Potassium 3.1 L, Chloride 108, Carbon Dioxide 17.1 L , Anion Gap 14, Phosphorus 3.1, Magnesium 1.8 08/10/25 18:46: POC Glucose 162 H 08/10/25 19:26: POC Glucose 152 H 08/10/25 20:40: POC Glucose 91 08/10/25 21:34: POC Glucose 113 H 08/10/25 22:00: Sodium 140, Potassium 3.2 L, Chloride 111 H, Carbon Dioxide 16.7 L, Anion Gap 12, Phosphorus 2.0 L, Magnesium 1.8 08/10/25 22:24: POC Glucose 114 H 08/10/25 23:26: POC Glucose 98 08/11/25 00:32: POC Glucose 83 08/11/25 01:28: POC Glucose 89 08/11/25 02:30: POC Glucose 142 H 08/11/25 03:25: Sodium 141, Potassium 2.8 L, Chloride 116 H, Carbon Dioxide 12.0 L, Anion Gap 13, BUN 4, Creatinine 0.62 L, Estim Creat Clear Calc 143.83, Est GFR (MDRD) Non-Af 122, BUN/Creatinine Ratio 6.1 L, Glucose 123 H, Calcium 6.5 L* 08/11/25 04:56: WBC 12.4 H, RBC 4.21, Hgb 12.5, Hct 37.8, MCV 89.8, MCH 29.7, MCHC 33.1, RDW Std Deviation 43.3, RDW Coeff of Joyce 13.1, Plt Count 165, MPV 11.4, Immature Gran % (Auto) 0.800, Neut % (Auto) 75.4 H, Lymph % (Auto) 17.3 L, [place] % (Auto) 6.1, Eos % (Auto) 0.1, Baso % (Auto) 0.3, Absolute Neuts (auto) 9.3 H, Absolute Lymphs (auto) 2.14, Nucleated RBC % 0, Sodium 140, Potassium 3.0 L, Chloride 110 H, Carbon Dioxide 17.3 L, Anion Gap 12, BUN 4, Creatinine 0.68 L , Estim Creat Clear Calc 131.14, Est GFR (MDRD) Non-Af 119, BUN/Creatinine Ratio 5.7 L, Glucose 167 H, Calcium 7.6, Phosphorus 3.0, Magnesium 1.7 08/11/25 06:32: POC Glucose 135 H 08/11/25 08:01: POC Glucose 114 H 08/11/25 09:18: POC Glucose 125 H Physical Exam Const alert, oriented x3 and no apparent distress Constitutional Narrative: flat affect General Appearance: cooperative HEENT normocephalic, head/scalp atraumatic and oropharynx normal Mouth: dry mucous membranes Eyes EOMs intact bilaterally Neck supple and no JVD Lymph Lymphatic: no lymphedema noted Resp normal respiratory effort, normal air movement and clear to auscultation bilaterally Cardio regular rate, regular rhythm, S1 normal heart sound, S2 normal heart sound and no murmurs GI normal to inspection, nondistended, normoactive bowel sounds, soft to palpation and non-tender Extremity normal capillary refill, no clubbing, cyanosis or edema and no calf tenderness General Extremity: no tenderness to palpation of joints or extremities Skin General Skin Exam: no breakdown Neuro no focal motor deficits and no sensory deficits noted Motor Exam: general weakness Psych thought process normal Mood & Affect: flat affect Assessment & Plan Assessment/Plan (1) DKA (diabetic ketoacidosis): PLAN: Plan #REcurrent DKA in a known type 1 diabetic * Patient has an insulin pump and also has chronic gastroparesis with chronic nausea. * Sees her websphere commerce developer recently reduced her long-acting insulin from 43 units daily to 36 units because her blood sugars were high. * She has had multiple admissions for DKA. * Anion gap is now closed. * Will switch from insulin drip to insulin pump. Started on an 1800-calorie diet. * #YANDY: Resolved. Creatinine is down to baseline. #Hypokalemia: Potassium is 3.2. Replace aggressively and trend. #History of cyclic vomiting syndrome: Complaints of nausea still. Urine tox was positive for cannabis. Encourage cessation. 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 Follow up with cardiology on outpatient basis #Anxiety and depression with borderline personality disorder and panic disorder * on doxepin and seroquel * #GERD: on PPI #Nicotine dependence: uses a vape. counseled to quit. DVT prophylaxis: lovenox Charges/Coding Visit Charges Inpatient E&M: 52751 Subs Hosp L2
[2025-08-11 10:08] LABS: Anion Gap 9 (5-15); Carbon Dioxide 21.6 mmol/L (21.0-32.0); Chloride 110 mmol/L (98-108); Magnesium 1.8 mg/dL (1.5-2.2); Potassium 3.2 mmol/L (3.3-5.1)
--- NOTE | 2025-08-11 10:57 | CASEMGMT ---
RN CM assisted sales representative CM to room to meet with pt for initial transition planning/care coordination assessment. RN CM introduced self and role at [facility], pt voices understanding and consents to assessment. Pt is A&Ox4 and is resting comfortably in the bed and is calm. Care providers, pharmacy, and demographics verified/updated. Dx: DKA Strata Score: 4 PCP: Jaime Barbour through the [facility] Specialists: Dwayne Endo, [place] [facility], Dr Swartz, bus system operator; Dr Meyers, bus system operator; Gracie nurseryman assistant Preferred Pharmacy: [facility] Insurance: My Care [facility], [facility] Prescription Benefit: yes LNOK: Tiffanie Donis, sig other Living Arrangements: Pt lives with her sig other and her 12 yr-old dtr in a 2 story home with 3 steps to enter. Pt reports she is I in ADL's (6-Click is 21). She has an aide through waiver program to help in the home and states that it is x12 hours per week MTTF. Pt states that she is active with [employer]. Pt states that she is active with [facility] and that her CM is Leandra Sanchez. TC to Leandra at this time ([phone]) and updated on pt's admission. CM to fax [place] Paperwork to @ [phone]. Transportation: Pt uses the bus/ [employer] for transportation and plans to do this at [place]. Tiffanie also does not drive. Pt states that she also uses her insurance at times DME: BP cuff. Pt states she has a functioning CBGM and a back up manual glucometer with sufficient testing supplies including lancets, test strips, and EtOH swabs. Pt states that she takes insulin shots and has enough Pen needles. Pt reports that she does not use her insulin pump and longer and relies on her insulin shots. Pt states that she has been compliant with this and denies needs or concerns. HHC/SNF: Pt has had HHC in the past but cannot recall the name of the agency. Pt denies SNF stays. Illicit Drug use: Pt states that she vapes nicotine off and on and THC daily. From previous admissions, THC cessation was advised from hospitalists. However, pt declines cessation resources or SW follow up regarding the matter. Pt states that she has her medical card and denies issues or concerns. Pt denies EtOH use or cigarette use. Pt Goal: Home Plan: Anticipate DC home once medically ready. Pt has been educated on the importance of managing and caring for her DM. Pt states understanding. CM/SW to follow for transportation needs if needed. Pt denies any further homegoing needs and states that she feels safe discharging home with her family once medically ready. Pt denies further questions, concerns, or needs from this RN CM. Sinai ARIAS RN, CM
[2025-08-11] MEDS: Insulin Glargine-YFGN 100 UNIT/ML Pen 40 UNIT SC (11:14)
--- NOTE | 2025-08-11 11:54 | CASEMGMT ---
Social Work SW completed a SDOH with the patient. Patient reported she has gotten shut offs notice but she has been able to pay the utility bill before it got shut off. Patient is on PIPP and HEAP programs. Patient uses resources in the community. She reported she goes to the [facility] weekly and she uses [facility] services. CLYDE Bell
[2025-08-11] MEDS: Pantoprazole Sodium 40 MG in 0.9% Normal Saline (100mL MB+) 100 ML 330 MG IV ×2 (12:00→23:08)
[2025-08-11] MEDS: Potassium Chloride Oral Tablet 20 MEQ 40 MEQ PO (12:03)
[2025-08-11] MEDS: proMETHazine 25 MG/ML Syringe IM (20:40)
[2025-08-11] MEDS: Doxepin Hydrochloride 10 MG Capsule PO (23:10)
[2025-08-12 01:03] VITALS: BMI 25.2
[2025-08-12 06:08] LABS: Hematocrit 36.5 % (37-47); Hemoglobin 12.2 g/dL (12.0-15.0); Immature Granulocytes Count 0.070 X10^3/uL (0.0-0.0); Mean Corp Hgb Conc 33.4 g/dL (32-36); Mean Corpuscular Volume 88.6 fL (81-99); Mean Platelet Vol. 11.6 fl (6.2-12.0); NRBC Flagged by Analyzer 0 % (0-5); Platelet Count 190 K/mm3 (150-450); RBC Distribution Width CV 12.8 % (11.6-14.6); RBC Distribution Width SD 41.5 fl (35.1-43.9); Red Blood Count 4.12 M/mm3 (4.2-5.4); White Blood Count 11.1 K/mm3 (4.4-11.0)
[2025-08-12 06:21] VITALS: BP 111/50; PULSE 44; RESP 16; TEMP 36.7; O2SAT 98
[2025-08-12 06:42] LABS: Anion Gap 13 (5-15); BUN 5 mg/dL (4-19); BUN/Creat Ratio 8.4 RATIO (10-20); Calcium,Total 8.6 mg/dL (7.6-11.0); Carbon Dioxide 23.0 mmol/L (21.0-32.0); Chloride 103 mmol/L (98-108); Estimated Creatinine Clearance 159.24 ml/min (50-250); Glucose 219 mg/dL (70-99); Potassium 3.5 mmol/L (3.3-5.1)
[2025-08-12 08:43] VITALS: BP 115/43; PULSE 48; RESP 16; TEMP 36.2; O2SAT 95
[2025-08-12] MEDS: Insulin Glargine-YFGN 100 UNIT/ML Pen 40 UNIT SC (08:45)
--- NOTE | 2025-08-12 09:16 | NURSING ---
Addendum entered by Nguyen Weiner 08/12/25 09:35: Patient asking to speak to patient advocate. Dean POLYSOMNOGRAPHY TECHmanager of case management made aware an went in to talk to patient. Original Note: Entered patient room with Dr. Jett to see patient this AM. Dr Jett attempting to assess and educate on patients marijuana use. Patient became very angry, began yelling at Dr Jett and using profanities exclaiming no one is listening to her and all doctors tell her to quit using marijuana but it helps her nausea. Dr Jett again attempting to educate on the literature of marijuana use and nausea, patient cutting off dr jett and yelling at her. Refuses assessment and kicks Dr Jett out of the room.
[2025-08-12] MEDS: Pantoprazole Sodium 40 MG in 0.9% Normal Saline (100mL MB+) 100 ML 330 MG IV (10:46)
--- NOTE | 2025-08-12 11:55 | DS.PCM_ITS ---
Providers Date of Admission: 08/09/25 Primary Care Physician: SHAWNA Bellamy, TERMINAL SUPERINTENDENT-C Reason For Visit: DKA Diagnosis Discharge Diagnosis (1) DKA (diabetic ketoacidosis): Status: Acute Code(s): E11.10 - Type 2 diabetes mellitus with ketoacidosis without coma Plan #REcurrent DKA in a known type 1 diabetic * Patient has an insulin pump and also has chronic gastroparesis with chronic nausea. * Sees her iridologist recently reduced her long-acting insulin from 43 units daily to 36 units because her blood sugars were high. * She has had multiple admissions for DKA. * Anion gap is now closed. * Will switch from insulin drip to insulin pump. Started on an 1800-calorie diet. * #YANDY: Resolved. Creatinine is down to baseline. #Hypokalemia: Potassium is 3.2. Replace aggressively and trend. #History of cyclic vomiting syndrome: Complaints of nausea still. Urine tox was positive for cannabis. Encourage cessation. 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 Follow up with cardiology on outpatient basis #Anxiety and depression with borderline personality disorder and panic disorder * on doxepin and seroquel * #GERD: on PPI #Nicotine dependence: uses a vape. counseled to quit. DVT prophylaxis: lovenox Medications at Discharge Home Medications pen needle, diabetic 29 gauge x 1/2 (Ultra-Thin II Insulin Pen Sedgwick) #100 ea 08/10/23 risankizumab-rzaa 150 mg/mL subcutaneous pen injector (Skyrizi) 150 mg subcut .[id number] PSORIASIS 02/07/24 albuterol sulfate 90 mcg/actuation aerosol inhaler (Ventolin HFA) 1 - 2 puff inhalation Q4H PRN PRN Wheezing ##1 08/01/24 doxepin 6 mg tablet 6 mg PO QHS insomnia 10/18/24 quetiapine 50 mg tablet,extended release 24 hr 50 mg PO QHS mood 10/18/24 pantoprazole 40 mg tablet,delayed release 40 mg PO QDAY garrett #90 tabs 03/31/25 blood-glucose sensor (FreeStyle Rosario 3 Plus Sensor device) #2 ea 05/21/25 blood-glucose,branch administrator,cont (FreeStyle Rosario 3 Joice) #1 ea 05/21/25 cholecalciferol (vitamin D3) 50 mcg (2,000 unit) capsule 50 mcg PO QDAY #90 caps 05/21/25 dextromethorphan IR 45 mg-bupropion ER 105 mg biphasic tablet (Auvelity) 1 tab PO QAM 05/21/25 gabapentin 600 mg tablet 600 mg PO BID PRN anxiety 05/21/25 insulin lispro 100 unit/mL subcutaneous pen (Humalog KwikPen (U-100) Insulin) 15 unit (0.15 mL) subcut TID #15 mL 05/21/25 propranolol 10 mg tablet 10 mg PO BID PRN anxiety 05/21/25 blood sugar diagnostic (Contour Next Test Strips) #100 ea 05/28/25 insulin glargine 100 unit/mL (3 mL) subcutaneous pen (Lantus Solostar U-100 Insulin) 40 unit (0.4 mL) subcut QHS #15 mL 08/12/25 Weight / BMI Weight Weight: 170 lb 10.205 oz Body Mass Index (BMI) 25.2 ABG / Lab / Microbiology Data 08/12/25 05:36 08/12/25 05:36 Laboratory: Laboratory Results - last 24 hr 08/11/25 03:34: POC Glucose 142 H 08/11/25 04:39: POC Glucose 161 H 08/11/25 05:27: POC Glucose 153 H 08/11/25 12:41: POC Glucose 207 H 08/11/25 16:25: POC Glucose 328 H 08/11/25 23:07: POC Glucose 251 H 08/12/25 05:36: WBC 11.1 H, RBC 4.12 L, Hgb 12.2, Hct 36.5 L, MCV 88.6, MCH 29.6, MCHC 33.4, RDW Std Deviation 41.5, RDW Coeff of Joyce 12.8, Plt Count 190, MPV 11.6, Immature Gran % (Auto) 0.600, Neut % (Auto) 70.1 H, Lymph % (Auto) 22.3, [place] % (Auto) 6.5, Eos % (Auto) 0.2, Baso % (Auto) 0.3, Absolute Neuts (auto) 7.8 H, Absolute Lymphs (auto) 2.48, Nucleated RBC % 0, Sodium 138, Potassium 3.5, Chloride 103, Carbon Dioxide 23.0, Anion Gap 13, BUN 5, C reatinine 0.56 L, Estim Creat Clear Calc 159.24, Est GFR (MDRD) Non-Af 125, B UN/Creatinine Ratio 8.4 L, Glucose 219 H, Calcium 8.6 08/12/25 06:27: POC Glucose 224 H 08/12/25 11:09: POC Glucose 309 H D/C Instructions Weight Bearing Status: Weight bearing as tolerated Call your doctor if you observe: Fever of 101 or Higher, Shortness of breath, Dizziness, Swelling in the ankles and Chest pain DC O2, CPAP, BIPAP Needs Home O2 Discharge instructions: No Discharge Plan Admission Admit Date/Time: 08/09/25 22:47 Primary Reason for Your Visit: DKA Attending Provider: Vita Jefferson Primary Care Provider: Jaime Barbour [facility] Consulting Providers: Ramya Lombardo; John Knapp Instructions Patient Instructions: Ketoacidosis Ch Discharge Orders/Prescriptions Prescriptions: Continued pantoprazole 40 mg tablet,delayed release (DR/EC) 40 mg PO QDAY Qty: 90 1RF gabapentin 600 mg tablet 600 mg PO BID PRN (Reason: anxiety) propranolol 10 mg tablet 10 mg PO BID PRN (Reason: anxiety) Auvelity 45-105 mg tablet, IR and ER, biphasic 1 tab PO QAM (DME) FreeStyle Rosario 3 Plus Sensor Device See Rx Instructions .Route Qty: 2 5RF Rx Instructions: 1 sensor q 15 days (DME) FreeStyle Rosario 3 Joice Misc See Rx Instructions .Route Qty: 1 0RF Rx Instructions: As directed cholecalciferol (vitamin D3) 50 mcg (2,000 unit) capsule 50 mcg PO QDAY Qty: 90 3RF insulin lispro [Humalog KwikPen Insulin] 100 unit/mL insulin pen 15 unit subcut TID Qty: 15 5RF (DME) pen needle, diabetic [Ultra-Thin II Ins Pen Sedgwick] 29 gauge x 1/2 needle See Rx Instructions .Route Qty: 100 0RF Rx Instructions: As directed Skyrizi 150 mg/mL pen injector 150 mg subcut .[id number] albuterol sulfate [Ventolin HFA] 90 mcg/actuation HFA aerosol inhaler 1 - 2 puff inhalation Q4H PRN PRN (Reason: Wheezing) Qty: 1 0RF quetiapine 50 mg tablet extended release 24 hr 50 mg PO QHS doxepin 6 mg tablet 6 mg PO QHS (DME) Contour Next Test Strips Strip See Rx Instructions .Route Qty: 100 5RF Rx Instructions: BID Changed insulin glargine [Lantus Solostar U-100 Insulin] 100 unit/mL (3 mL) insulin pen 40 unit subcut QHS Qty: 15 2RF Referrals / Follow Up: Keshav Martinez MD [Med Staff - Courtesy Staff, Endocrinology] - Within 2 Weeks Jaime Barbour, TERMINAL SUPERINTENDENT-C [Primary Care Provider, Family Practice] - Within 1 Week Disposition Disposition (needs filled in before D/C Order can be placed): Home, Self Care
--- NOTE | 2025-08-12 11:55 | PCM.DC ---
Discharge Instructions DC O2, CPAP, BIPAP needs Home O2 Discharge instructions: No Dressing / Incision Discharge Activity: Return to Normal Activity Weight Bearing Status: Weight bearing as tolerated Dressing / Incision Call your doctor if you observe: Fever of 101 or Higher, Shortness of breath, Dizziness, Swelling in the ankles and Chest pain Follow Up Care Test Results: Test results from this visit will be discussed in further detail at your follow-up appointment, if applicable. Discharge Plan Admission Admit Date/Time: 08/09/25 22:47 Primary Reason for Your Visit: DKA Attending Provider: Vita Jefferson Primary Care Provider: Jaime Barbour [facility] Consulting Providers: Ramya Lombardo; John Knapp Instructions Patient Instructions: Ketoacidosis Ch Discharge Orders/Prescriptions Prescriptions: Continued pantoprazole 40 mg tablet,delayed release (DR/EC) 40 mg PO QDAY Qty: 90 1RF gabapentin 600 mg tablet 600 mg PO BID PRN (Reason: anxiety) propranolol 10 mg tablet 10 mg PO BID PRN (Reason: anxiety) Auvelity 45-105 mg tablet, IR and ER, biphasic 1 tab PO QAM (DME) FreeStyle Rosario 3 Plus Sensor Device See Rx Instructions .Route Qty: 2 5RF Rx Instructions: 1 sensor q 15 days (DME) FreeStyle Rosario 3 [place] Misc See Rx Instructions .Route Qty: 1 0RF Rx Instructions: As directed cholecalciferol (vitamin D3) 50 mcg (2,000 unit) capsule 50 mcg PO QDAY Qty: 90 3RF insulin lispro [Humalog KwikPen Insulin] 100 unit/mL insulin pen 15 unit subcut TID Qty: 15 5RF (DME) pen needle, diabetic [Ultra-Thin II Ins Pen [place]] 29 gauge x 1/2 needle See Rx Instructions .Route Qty: 100 0RF Rx Instructions: As directed Skyrizi 150 mg/mL pen injector 150 mg subcut .[id number] albuterol sulfate [Ventolin HFA] 90 mcg/actuation HFA aerosol inhaler 1 - 2 puff inhalation Q4H PRN PRN (Reason: Wheezing) Qty: 1 0RF quetiapine 50 mg tablet extended release 24 hr 50 mg PO QHS doxepin 6 mg tablet 6 mg PO QHS (DME) Contour Next Test Strips Strip See Rx Instructions .Route Qty: 100 5RF Rx Instructions: BID Changed insulin glargine [Lantus Solostar U-100 Insulin] 100 unit/mL (3 mL) insulin pen 40 unit subcut QHS Qty: 15 2RF Referrals / Follow Up: Keshav Martinez MD [Med Staff - Courtesy Staff, Endocrinology] - Within 2 Weeks Jaime Barbour, [employer] [Primary Care Provider, Family Practice] - Within 1 Week Disposition Disposition (needs filled in before D/C Order can be placed): Home, Self Care
--- NOTE | 2025-08-12 11:55 | PCM.DC.SUM ---
Providers Date of Admission: 08/09/25 Date of Discharge: 08/12/25 Primary Care Physician: SHAWNA Bellamy, [employer] Reason For Visit: DKA Diagnosis Discharge Diagnosis (1) DKA (diabetic ketoacidosis): Status: Acute Code(s): E11.10 - Type 2 diabetes mellitus with ketoacidosis without coma Plan #REcurrent DKA in a known type 1 diabetic Patient has an insulin pump and also has chronic gastroparesis with chronic nausea. Sees her tractor mechanic apprentice recently reduced her long-acting insulin from 43 units daily to 36 units because her blood sugars were high. She has had multiple admissions for DKA. Anion gap is now closed. Will switch from insulin drip to insulin pump. Started on an 1800-calorie diet. #YANDY: Resolved. Creatinine is down to baseline. #Hypokalemia: Potassium is 3.2. Replace aggressively and trend. #History of cyclic vomiting syndrome: Complaints of nausea still. Urine tox was positive for cannabis. Encourage cessation. 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 Follow up with cardiology on outpatient basis #Anxiety and depression with borderline personality disorder and panic disorder on doxepin and seroquel #GERD: on PPI #Nicotine dependence: uses a vape. counseled to quit. DVT prophylaxis: lovenox Medications at Discharge Home Medications pen needle, diabetic 29 gauge x 1/2 (Ultra-Thin II Insulin Pen [place]) #100 ea 08/10/23 risankizumab-rzaa 150 mg/mL subcutaneous pen injector (Skyrizi) 150 mg subcut .[id number] PSORIASIS 02/07/24 albuterol sulfate 90 mcg/actuation aerosol inhaler (Ventolin HFA) 1 - 2 puff inhalation Q4H PRN PRN Wheezing ##1 08/01/24 doxepin 6 mg tablet 6 mg PO QHS insomnia 10/18/24 quetiapine 50 mg tablet,extended release 24 hr 50 mg PO QHS mood 10/18/24 pantoprazole 40 mg tablet,delayed release 40 mg PO QDAY reflux #90 tabs 03/31/25 blood-glucose sensor (FreeStyle Rosario 3 Plus Sensor device) #2 ea 05/21/25 blood-glucose,estate agent,cont (FreeStyle Rosario 3 [place]) #1 ea 05/21/25 cholecalciferol (vitamin D3) 50 mcg (2,000 unit) capsule 50 mcg PO QDAY vitamin #90 caps 05/21/25 dextromethorphan IR 45 mg-bupropion ER 105 mg biphasic tablet (Auvelity) 1 tab PO QAM mental health 05/21/25 gabapentin 600 mg tablet 600 mg PO BID PRN anxiety 05/21/25 insulin lispro 100 unit/mL subcutaneous pen (Humalog KwikPen (U-100) Insulin) 15 unit (0.15 mL) subcut TID diabetes #15 mL 05/21/25 propranolol 10 mg tablet 10 mg PO BID PRN anxiety 05/21/25 blood sugar diagnostic (Contour Next Test Strips) #100 ea 05/28/25 insulin glargine 100 unit/mL (3 mL) subcutaneous pen (Lantus Solostar U-100 Insulin) 40 unit (0.4 mL) subcut QHS #15 mL 08/12/25 Hospital Course Operations None Procedures None Summary of Care Provided Minutes Spent on Discharge: 55 Hospital Course: Patient is a 30-year-old female with a past medical history as outlined including recurrent admissions for DKA who was admitted via the ED on 08/09/2025 with a complaint of elevated blood sugar and nausea and vomiting with concern for DKA. She said her tractor mechanic apprentice had recently reduced her insulin from 43 units to 36 units on account of low blood sugars. However she felt this was not controlling her so decided to come into the ED. On admission in the ED anion gap was 28 with bicarb of 10.1 and beta hydroxy butyrate of 5.9. Blood glucose was 448. Urine tox was positive for cannabis. She was admitted to the ICU and started on insulin drip and managed for DKA and a known type I diabetic. Her anion gap eventually closed x 2 and her blood sugars trended down. She was then started on subcu Lantus 40 units daily and also placed on high-dose insulin sliding scale. Patient Complaining of persistent nausea. This was not new and she had had similar complaints from her previous admissions. She was known to have gastroparesis. Patient also used marijuana which she had been counseled about in the past that it caused nausea and vomiting. Patient's blood sugar normalised and she remained stable. Patient was seen and examined by this hospitalist on the day of discharge in the presence of her nurse. Patient still complained of nausea. This hospitalist attempted to nurses' association counselor patient about the deleterious effects of marijuana with regards to her intractable nausea. However, patient became very upset, verbally aggressive and argumentative. She asked the hospitalist if she was aware of studies that has shown the Reglan did not work for nausea. She stated that every patient was different and that in her case ultimately marijuana that worked for her. Close hospitalist consulted by she was simply telling her what the studies had shown and she respected her right to use marijuana if she chose to. Patient at this point started cursing at this hospitalist [facility] hospitalist told the patient to please maintain a respectful conversation but patient remained very verbally aggressive. She then told this hospitalist to get out of her room and refused physical examination. This hospitalist then informed the charge nurse, PCU director and patient advocate of this occurrence. Dr Lobo, fellow hospitalist, agreed to examine the patient nad review her for discharge. She called tractor mechanic apprentice Dr Martinez who recommended that patient be discharged on SQ lantus 40 units daily and to continue her insulin sliding scale. She is to follow up with her PCP and tractor mechanic apprentice within 1-2 weeks. Physical Exam Narrative Patient refused physical examination today Weight / BMI Weight Weight: 170 lb 10.205 oz Body Mass Index (BMI) 25.2 ABG / Lab / Microbiology Data 08/12/25 05:36 08/12/25 05:36 Laboratory: Laboratory Results - last 24 hr 08/11/25 03:34: POC Glucose 142 H 08/11/25 04:39: POC Glucose 161 H 08/11/25 05:27: POC Glucose 153 H 08/11/25 16:25: POC Glucose 328 H 08/11/25 23:07: POC Glucose 251 H 08/12/25 05:36: WBC 11.1 H, RBC 4.12 L, Hgb 12.2, Hct 36.5 L, MCV 88.6, MCH 29.6, MCHC 33.4, RDW Std Deviation 41.5, RDW Coeff of Joyce 12.8, Plt Count 190, MPV 11.6, Immature Gran % (Auto) 0.600, Neut % (Auto) 70.1 H, Lymph % (Auto) 22.3, [place]le % (Auto) 6.5, Eos % (Auto) 0.2, Baso % (Auto) 0.3, Absolute Neuts (auto) 7.8 H, Absolute Lymphs (auto) 2.48, Nucleated RBC % 0, Sodium 138, Potassium 3.5, Chloride 103, Carbon Dioxide 23.0, Anion Gap 13, BUN 5, Creatinine 0.56 L, Estim Creat Clear Calc 159.24, Est GFR (MDRD) Non-Af 125, BUN/Creatinine Ratio 8.4 L, Glucose 219 H, Calcium 8.6 08/12/25 06:27: POC Glucose 224 H 08/12/25 11:09: POC Glucose 309 H D/C Instructions Discharge Activity: Return to Normal Activity Weight Bearing Status: Weight bearing as tolerated Call your doctor if you observe: Fever of 101 or Higher, Shortness of breath, Dizziness, Swelling in the ankles and Chest pain DC O2, CPAP, BIPAP Needs Home O2 Discharge instructions: No DC home with Oxygen: No Meaningful Use Info Meaningful Use Meaningful Use Diagnoses (Choose all that apply): None applicable Discharge Plan Admission Admit Date/Time: 08/09/25 22:47 Primary Reason for Your Visit: DKA Attending Provider: Vita Jefferson Primary Care Provider: Jaime Barbour [facility] Consulting Providers: Ramya Lombardo; John Knapp Instructions Patient Instructions: Ketoacidosis Ch Discharge Orders/Prescriptions Prescriptions: Continued pantoprazole 40 mg tablet,delayed release (DR/EC) 40 mg PO QDAY Qty: 90 1RF gabapentin 600 mg tablet 600 mg PO BID PRN (Reason: anxiety) propranolol 10 mg tablet 10 mg PO BID PRN (Reason: anxiety) Auvelity 45-105 mg tablet, IR and ER, biphasic 1 tab PO QAM (DME) FreeStyle Rosario 3 Plus Sensor Device See Rx Instructions .Route Qty: 2 5RF Rx Instructions: 1 sensor q 15 days (DME) FreeStyle Rosario 3 [place] Misc See Rx Instructions .Route Qty: 1 0RF Rx Instructions: As directed cholecalciferol (vitamin D3) 50 mcg (2,000 unit) capsule 50 mcg PO QDAY Qty: 90 3RF insulin lispro [Humalog KwikPen Insulin] 100 unit/mL insulin pen 15 unit subcut TID Qty: 15 5RF (DME) pen needle, diabetic [Ultra-Thin II Ins Pen [place]] 29 gauge x 1/2 needle See Rx Instructions .Route Qty: 100 0RF Rx Instructions: As directed Skyrizi 150 mg/mL pen injector 150 mg subcut .[id number] albuterol sulfate [Ventolin HFA] 90 mcg/actuation HFA aerosol inhaler 1 - 2 puff inhalation Q4H PRN PRN (Reason: Wheezing) Qty: 1 0RF quetiapine 50 mg tablet extended release 24 hr 50 mg PO QHS doxepin 6 mg tablet 6 mg PO QHS (DME) Contour Next Test Strips Strip See Rx Instructions .Route Qty: 100 5RF Rx Instructions: BID Changed insulin glargine [Lantus Solostar U-100 Insulin] 100 unit/mL (3 mL) insulin pen 40 unit subcut QHS Qty: 15 2RF Referrals / Follow Up: Keshav Martinez MD [Med Staff - Courtesy Staff, Endocrinology] - Within 2 Weeks Jaime Barbour, [employer] [Primary Care Provider, Family Practice] - Within 1 Week Disposition Disposition (needs filled in before D/C Order can be placed): Home, Self Care Charges/Coding Visit Charges Inpatient E&M: 09204 Disch Hosp >30min
--- NOTE | 2025-08-12 12:18 | CASEMGMT ---
Patient has order for discharge. RN CM in to discuss needs at discharge. Patient denies needs or help at discharge. Patient had no further questions or concerns. RN CM to send DC paperwork to [facility] when completed.
--- NOTE | 2025-08-12 12:22 | PHA.DC.MR.R ---
Pharmacy [place] Med Reconciliation Pharmacy Service has performed discharge medication reconciliation for this patient. The patient's discharge medication list was reviewed for discrepancies and discrepancies were resolved. Medications at Discharge Home Medications pen needle, diabetic 29 gauge x 1/2 (Ultra-Thin II Insulin Pen [place]) #100 ea 08/10/23 risankizumab-rzaa 150 mg/mL subcutaneous pen injector (Skyrizi) 150 mg subcut .[id number] PSORIASIS 02/07/24 albuterol sulfate 90 mcg/actuation aerosol inhaler (Ventolin HFA) 1 - 2 puff inhalation Q4H PRN PRN Wheezing ##1 08/01/24 doxepin 6 mg tablet 6 mg PO QHS insomnia 10/18/24 quetiapine 50 mg tablet,extended release 24 hr 50 mg PO QHS mood 10/18/24 pantoprazole 40 mg tablet,delayed release 40 mg PO QDAY reflux #90 tabs 03/31/25 blood-glucose sensor (FreeStyle Rosario 3 Plus Sensor device) #2 ea 05/21/25 blood-glucose,drying machine receiver,cont (FreeStyle Rosario 3 [place]) #1 ea 05/21/25 cholecalciferol (vitamin D3) 50 mcg (2,000 unit) capsule 50 mcg PO QDAY vitamin #90 caps 05/21/25 dextromethorphan IR 45 mg-bupropion ER 105 mg biphasic tablet (Auvelity) 1 tab PO QAM mental health 05/21/25 gabapentin 600 mg tablet 600 mg PO BID PRN anxiety 05/21/25 insulin lispro 100 unit/mL subcutaneous pen (Humalog KwikPen (U-100) Insulin) 15 unit (0.15 mL) subcut TID diabetes #15 mL 05/21/25 propranolol 10 mg tablet 10 mg PO BID PRN anxiety 05/21/25 blood sugar diagnostic (Contour Next Test Strips) #100 ea 05/28/25 insulin glargine 100 unit/mL (3 mL) subcutaneous pen (Lantus Solostar U-100 Insulin) 40 unit (0.4 mL) subcut QHS #15 mL 08/12/25
[2025-08-12 13:09] VITALS: BP 139/83; PULSE 55; RESP 18; TEMP 36.6; O2SAT 94
== END 2025-08-12 13:46 | disposition home or self-care (01) | DRG 638 ==
LOC: ED 22:41 → ICU 23:28 → PCU 08-11 16:18
PROVIDERS: Internal Medicine; Admitting Provider Family Medicine; Emergency Provider Emergency Medicine; Visit Provider Student in an Organized Health Care Education/Training Program
DX: E10.10 Type 1 diabetes mellitus with ketoacidosis without coma (principal); N17.9 Acute kidney failure, unspecified; F33.3 Major depressive disorder, recurrent, severe with psychotic symptoms; E10.43 Type 1 diabetes mellitus with diabetic autonomic (poly)neuropathy; E83.39 Other disorders of phosphorus metabolism; F12.90 Cannabis use, unspecified, uncomplicated; Z79.4 Long term (current) use of insulin; K21.9 Gastro-esophageal reflux disease without esophagitis; F17.290 Nicotine dependence, other tobacco product, uncomplicated; K31.84 Gastroparesis; E87.6 Hypokalemia; F41.9 Anxiety disorder, unspecified; R11.2 Nausea with vomiting, unspecified; F43.10 Post-traumatic stress disorder, unspecified; Z96.41 Presence of insulin pump (external) (internal); Z79.899 Other long term (current) drug therapy; Z90.49 Acquired absence of other specified parts of digestive tract; Z98.51 Tubal ligation status
CPT/HCPCS: 36415; 80048; 80051; 80053; 80076; 80307; 81001; 82010; 82803; 82962; 83036; 83690; 83735; 84100; 84703; 85025; 93005; 99285; 99406; J2997; A4216